=== PATIENT | female | born 2000 | race Caucasian/White ===

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

== ENCOUNTER 2022-01-07 13:56 | Emergency (ER) | payer OTHER ==
[2022-01-07 14:33] LABS: Urine Blood 2+ (Negative); Urine Glucose Negative (Negative); Urine Protein Negative (Negative); Urine Specific Gravity 1.025 (1.005-1.030)
[2022-01-07 14:54] LABS: Absolute Lymphocytes (CBC) 1.9 K/uL (0.7-4.9); Hematocrit 42.1 % (36.0-45.0); Lymphocytes % 19.9 % (15.3-44.8); MCV 86.4 fL (80-100); MPV 8.5 fL (7.6-11.3); RBC Red Blood Cell Count 4.87 M/uL (3.86-4.86)
[2022-01-07 15:04] LABS: Urine Specific Gravity/Preg 1.025 (1.005-1.030)
[2022-01-07 15:05] LABS: Albumin 3.8 g/dL (3.4-5.0); Bilirubin Total 0.2 mg/dL (0.2-1.0); Potassium 3.5 mmol/L (3.5-5.1); Protein, Total 7.1 g/dL (6.4-8.2)
--- NOTE | 2022-01-07 15:37 | ER ---
Nurse's Notes [facility] Name: Vanda Pompa Age: 21 yrs Sex: Female : 2000 Arrival Date: 01/07/2022 Time: 13:57 Bed 15 Private MD: Diagnosis: Vomiting Presentation: 01/07 13:55 Chief complaint: Patient states: she vomited blood at work and is having abdominal jg9 discomfort. Coronavirus screen: Vaccine status:. Ebola Screen: Patient negative for fever greater than or equal to 101.5 degrees Fahrenheit, and additional compatible Ebola Virus Disease symptoms Patient denies exposure to infectious person. Patient denies travel to an Ebola-affected area in the 21 days before illness onset. Initial Sepsis Screen: Does the patient meet any 2 criteria? No. Patient's initial sepsis screen is negative. Does the patient have a suspected source of infection? No. Patient's initial sepsis screen is negative. Risk Assessment: Do you want to hurt yourself or someone else? Patient reports no desire to harm self or others. Onset of symptoms is unknown. 13:55 Method Of Arrival: EMS: [facility] 9 13:55 Acuity: FREDY 3 jg9 Triage Assessment: 13:55 General: Appears in no apparent distress. Behavior is calm, cooperative. Pain: jg9 Complains of pain in abdomen. GI: Abdomen is flat, Pt is actively vomiting Bowel sounds present X 4 quads. Abd is soft and non tender X 4 quads. Reports lower abdominal pain, upper abdominal pain, hemataemesis. 14:27 EENT: No deficits noted. Neuro: No deficits noted. Cardiovascular: No deficits noted. jg9 Respiratory: No deficits noted. : No deficits noted. Derm: No deficits noted. Musculoskeletal: No deficits noted. 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 - Social history:: Smoking status: Patient denies any tobacco usage or history of. Screenin:26 Abuse screen: Denies threats or abuse. Denies injuries from another. Nutritional jg9 screening: No deficits noted. Tuberculosis screening: No symptoms or risk factors identified. Fall Risk None identified. Assessment: 15:00 Reassessment: No changes from previously documented assessment. Patient and/or family jg9 updated on plan of care and expected duration. Pain level reassessed. Patient is alert, oriented x 3, equal unlabored respirations, skin warm/dry/pink. Vital Signs: 13:58 BP 113 / 83; Pulse 112; Resp 16; Temp 97.2; Pulse Ox 100% on R/A; Weight 55.34 kg (R); mb7 Height 5 ft. 3 in. (160.02 cm) (R); 14:00 BP 111 / 69; Pulse 105; Resp 17 S; Pulse Ox 98% on R/A; jg9 14:15 BP 97 / 60; Pulse 109; Resp 12 S; Pulse Ox 100% on R/A; jg9 13:58 Body Mass Index 21.61 (55.34 kg, 160.02 cm) mb7 ED Course: 13:57 Patient arrived in ED. jg9 13:58 Ruchi Mosqueda, RN is Primary Nurse. jg9 13:58 Patient has correct armband on for positive identification. Bed in low position. Call mb7 light in reach. Side rails up X 1. Door closed. Noise minimized. Warm blanket given. 14:00 Arm band placed on. jg9 14:02 Aston López DO is Attending Physician. ms3 14:25 Triage completed. jg9 14:27 Missed attempt(s): 20 gauge in right antecubital area. Bleeding controlled, band aid mb7 applied, catheter tip intact. 15:37 Robert Paredes DO is Referral Physician. ms3 15:43 No provider procedures requiring assistance completed. jg9 15:43 IV discontinued. jg9 Administered Medications: No medications were administered Medication: 15:43 VIS not applicable for this client. jg9 Outcome: 15:37 Discharge ordered by . ms3 15:43 Discharged to home ambulatory. jg9 15:43 Condition: stable 15:43 Discharge instructions given to patient, Instructed on discharge instructions, follow up and referral plans. Demonstrated understanding of instructions, follow-up care. 15:44 Patient left the ED. jg9 Signatures: Aston López DO DO ms3 Purnima Goodson mb7 Ruchi Mosqueda RN RN jg9
--- NOTE | 2022-01-07 15:37 | EDPHYS ---
Physician Documentation [facility] Name: Vanda Pompa Age: 21 yrs Sex: Female : 2000 Arrival Date: 01/07/2022 Time: 13:57 Bed 15 Private MD: ED Physician Aston López HPI: 01/07 14:07 This 21 yrs old Female presents to ER via Unassigned with complaints of Abdominal Pain ms3 - patient reports hemataemesis x3, patient also reports she is having heavy menstrual bleeding since IUD placed 2 months ago. 14:07 The patient presents to the emergency department with nausea, vomiting, 3 times today, ms3 described as blood streaked. Onset: The symptoms/episode began/occurred acutely, just prior to arrival. Possible causes: unknown. The symptoms are aggravated by nothing. The symptoms are alleviated by nothing. Associated signs and symptoms: The patient has no apparent associated signs or symptoms. Severity of symptoms: At their worst the symptoms were moderate in the emergency department the symptoms have improved Pain is currently a / 10. 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 - Social history:: Smoking status: Patient denies any tobacco usage or history of. ROS: 14:07 Constitutional: Negative for fever, and chills. ENT: Negative for injury, pain, and ms3 discharge, Neck: Negative for injury, pain, and swelling, Cardiovascular: Negative for chest pain, and palpitations. Respiratory: Negative for shortness of breath, cough, wheezing, and pleuritic chest pain. 14:07 Skin: Negative for injury, rash, and discoloration, Neuro: Negative for headache, weakness, numbness, tingling. Allergy/Immunology: Negative for hives, rash, and allergies. 14:07 Abdomen/GI: Positive for abdominal pain, nausea and vomiting. Exam: 14:07 Constitutional: This is a well developed, well nourished patient who is awake, alert, ms3 and in no acute distress. Head/Face: Normocephalic, atraumatic. Neck: Trachea midline, no cervical lymphadenopathy. Supple, full range of motion without nuchal rigidity, or vertebral point tenderness. No Meningismus. Chest/axilla: Normal chest wall appearance and motion. Nontender with no deformity. Cardiovascular: Regular rate and rhythm with a normal S1 and S2. No gallops, murmurs, or rubs. Normal PMI, no JVD. No pulse deficits. Respiratory: Lungs have equal breath sounds bilaterally, clear to auscultation and percussion. No rales, rhonchi or wheezes noted. No increased work of breathing, no retractions or nasal flaring. Abdomen/GI: Soft, non-tender, with normal bowel sounds. No distension or tympany. No guarding or rebound. No evidence of tenderness throughout. Skin: Warm, dry with normal turgor. Normal color with no rashes, no lesions, and no evidence of cellulitis. MS/ Extremity: Pulses equal, no cyanosis. Neurovascular intact. Full, normal range of motion. Vital Signs: 13:58 BP 113 / 83; Pulse 112; Resp 16; Temp 97.2; Pulse Ox 100% on R/A; Weight 55.34 kg (R); mb7 Height 5 ft. 3 in. (160.02 cm) (R); 14:00 BP 111 / 69; Pulse 105; Resp 17 S; Pulse Ox 98% on R/A; jg9 14:15 BP 97 / 60; Pulse 109; Resp 12 S; Pulse Ox 100% on R/A; jg9 13:58 Body Mass Index 21.61 (55.34 kg, 160.02 cm) 7 MDM: 14:02 Patient medically screened. ms3 14:07 Differential diagnosis: Nonspecific abd pain, gastritis, viral gastroenteritis, ms3 gastroenteritis. 18:46 Data reviewed: vital signs, nurses notes, lab test result(s), and as a result, I will ms3 discharge patient. Counseling: I had a detailed discussion with the patient and/or guardian regarding: the historical points, exam findings, and any diagnostic results supporting the discharge/admit diagnosis, lab results, the need for outpatient follow up, to return to the emergency department if symptoms worsen or persist or if there are any questions or concerns that arise at home. ED course: Discussed, labs, physical exam findings with patient. Patient to follow-up with primary care physician in 2 to 3 days. Patient understands and agrees with plan. All questions were answered. Return precautions discussed include worsening symptoms, or any other concerns. On reevaluation patient is improved, alert and oriented x4, no apparent distress, nontoxic, ambulatory in emergency department.. 01/07 14:02 Order name: CBC with Diff; Complete Time: 15:06 ms3 01/07 14:02 Order name: CMP; Complete Time: 15:06 ms3 01/07 14:02 Order name: Lipase; Complete Time: 15:06 ms3 01/07 14:02 Order name: IV Saline Lock; Complete Time: 15:45 ms3 01/07 14:33 Order name: Urine Dipstick-Ancillary; Complete Time: 15:06 EDMS 01/07 14:35 Order name: Urine --Ancillary (enter results); Complete Time: 15:06 em1 01/07 14:02 Order name: Labs collected and sent; Complete Time: 15:45 ms3 01/07 14:02 Order name: Urine Test (obtain specimen); Complete Time: 14:32 ms3 Administered Medications: No medications were administered Disposition Summary: 01/07/22 15:37 Discharge Ordered Location: Home ms3 Problem: new ms3 Symptoms: are unchanged ms3 Condition: Stable ms3 Diagnosis - Vomiting ms3 Followup: ms3 - With: Robert Paredes DO - When: 2 - 3 days - Reason: Recheck today's complaints Discharge Instructions: - Discharge Summary Sheet ms3 - Vomiting, Adult ms3 Forms: - Medication Reconciliation Form ms3 - Thank You Letter ms3 - Antibiotic Education ms3 - Prescription Opioid Use ms3 Signatures: Dispatcher [employer] EDMS Aston López DO DO ms3 Ruchi Mosqueda, RN RN jg9
[2022-01-07 15:50] VITALS: TEMP 97.2; O2SAT 100
[2022-01-07 15:52] VITALS: BP 97/60
== END 2022-01-07 15:44 | disposition home or self-care (01) ==
LOC: ER 13:56
DX: R11.10 Vomiting, unspecified (principal); R10.9 Unspecified abdominal pain
CPT/HCPCS: 36415; 80053; 81003; 81025; 83690; 85025

== ENCOUNTER 2022-01-12 12:55 | Emergency (ER) | payer OTHER ==
[2022-01-12 14:15] LABS: Absolute Lymphocytes (CBC) 1.8 K/uL (0.7-4.9); Hematocrit 40.2 % (36.0-45.0); MCV 86.2 fL (80-100); MPV 8.5 fL (7.6-11.3); RBC Red Blood Cell Count 4.66 M/uL (3.86-4.86)
[2022-01-12 14:39] LABS: Magnesium 2.4 mg/dL (1.8-2.4); Potassium 3.9 mmol/L (3.5-5.1)
[2022-01-12 15:36] LABS: Urine Blood 1+ (Negative); Urine Glucose Negative (Negative); Urine Protein Negative (Negative); Urine pH 6.5 (5.0-7.0)
--- NOTE | 2022-01-12 15:47 | EDPHYS ---
Physician Documentation [facility] Name: Vanda Pompa Age: 21 yrs Sex: Female : 2000 Arrival Date: 01/12/2022 Time: 12:57 Bed Treatment Private MD: MEDARDO Physician Dick Fields HPI: 01/12 13:40 This 21 yrs old Female presents to ER via EMS with complaints of Syncope. cp 13:40 The patient has experienced syncope, lost consciousness. Onset: The symptoms/episode cp began/occurred just prior to arrival. Duration: This was a single episode, that lasted an unknown period of time. Context: the episode(s) was witnessed, by co-worker(s), occurred at work, occurred while the patient was standing, Just prior to the episode the patient experienced lightheadedness, felt hot. Associated injury: The patient did not suffer any apparent associated injury. 13:40 Associated signs and symptoms: Pertinent positives: lightheadedness, Pertinent cp negatives: abdominal pain, chest pain, dizziness, headache, numbness, palpitations, seizure, shortness of breath, vomiting, weakness. Current symptoms: Currently, the patient is not experiencing any symptoms, the patient feels back to baseline. Historical: - Allergies: 13:05 No Known Allergies; iw - PMHx: 13:05 Asthma; Bipolar disorder; depressive disorder; iw - PSHx: 13:05 ear surgery; iw ROS: 13:45 Constitutional: Negative for body aches, chills, fever, poor PO intake. cp 13:45 Eyes: Negative for injury, pain, redness, and discharge. cp 13:45 ENT: Negative for drainage from ear(s), ear pain, sore throat, difficulty swallowing, difficulty handling secretions. 13:45 Cardiovascular: Negative for chest pain, edema, palpitations. 13:45 Respiratory: Negative for cough, shortness of breath, wheezing. 13:45 Abdomen/GI: Negative for abdominal pain, nausea, vomiting, and diarrhea. 13:45 Neuro: Positive for syncope, Negative for altered mental status, dizziness, headache, seizure activity, weakness. 13:45 All other systems are negative. Exam: 13:50 Constitutional: The patient appears in no acute distress, alert. cp 13:50 Head/Face: Normocephalic, atraumatic. cp 13:50 Eyes: Periorbital structures: appear normal, Pupils: equal, round, and reactive to cp light and accomodation, Extraocular movements: intact throughout, Conjunctiva: normal, no exudate, no injection, Sclera: no appreciated abnormality, Lids and lashes: appear normal, bilaterally. 13:50 ENT: External ear(s): are unremarkable, Ear canal(s): are normal, TM's: dullness, bilaterally, Nose: is normal, Mouth: Lips: moist, Oral mucosa: pink and intact, moist, Posterior pharynx: Airway: no evidence of obstruction, patent. 13:50 Neck: ROM/movement: is normal, is supple, without pain, no range of motions limitations. 13:50 Chest/axilla: Inspection: normal, Palpation: is normal, no crepitus, no tenderness. 13:50 Cardiovascular: Rate: normal, Rhythm: regular. 13:50 Respiratory: the patient does not display signs of respiratory distress, Respirations: normal, no use of accessory muscles, no retractions, labored breathing, is not present, Breath sounds: are clear throughout, no decreased breath sounds, no stridor, no wheezing. 13:50 Abdomen/GI: Inspection: abdomen appears normal, Bowel sounds: active, all quadrants, Palpation: abdomen is soft and non-tender, in all quadrants. 13:50 Back: pain, is absent, ROM is normal. 13:50 Neuro: Orientation: to person, place \T\ time. Mentation: is normal, Cerebellar function: is grossly normal, Motor: moves all fours, strength is normal, Sensation: is normal. 15:17 ECG was reviewed by the Attending Physician. Vital Signs: 13:36 BP 109 / 71; Pulse 96; Resp 16; Temp 98.4; Pulse Ox 100% on R/A; iw MDM: 13:53 Patient medically screened. uzma 15:45 Data reviewed: vital signs, nurses notes, lab test result(s), EKG. 15:45 Differential Diagnosis: cardiac arrhythmia, drug effect, , pseudo seizure, cp seizure, vasovagal episode. Test interpretation: by ED physician or midlevel provider: ECG. Counseling: I had a detailed discussion with the patient and/or guardian regarding: the historical points, exam findings, and any diagnostic results supporting the discharge/admit diagnosis, lab results, to return to the emergency department if symptoms worsen or persist or if there are any questions or concerns that arise at home. Response to treatment: the patient's symptoms have markedly improved after treatment, and as a result, I will discharge patient. 01/12 13:42 Order name: Basic Metabolic Panel; Complete Time: 14:59 cp 01/12 14:59 Interpretation: Normal except: CL 110. cp 01/12 13:42 Order name: CBC with Diff; Complete Time: 14:59 cp 01/12 13:42 Order name: D-Dimer; Complete Time: 14:59 cp 01/12 13:42 Order name: Magnesium; Complete Time: 14:59 01/12 13:42 Order name: Urine Microscopic Only 01/12 15:36 Order name: Urine Dipstick-Ancillary EDMS 01/12 13:42 Order name: EKG; Complete Time: 13:42 cp 01/12 13:42 Order name: Cardiac monitoring 01/12 13:42 Order name: EKG - Nurse/Tech; Complete Time: 15:08 01/12 13:42 Order name: IV Saline Lock 01/12 13:42 Order name: Labs collected and sent 01/12 13:42 Order name: O2 Per Protocol 01/12 13:42 Order name: O2 Sat Monitoring 01/12 15:38 Order name: Urine --Ancillary (enter results) em 01/12 13:42 Order name: Urine Dipstick-Ancillary (obtain specimen); Complete Time: 15:37 01/12 13:42 Order name: Urine Test (obtain specimen); Complete Time: 15:37 cp EC:17 Rate is 86 beats/min. Rhythm is regular. MS interval is shortened at 98 msec. QRS cp interval is normal. QT interval is normal. T waves are Inverted in lead aVR. Interpreted by me. Reviewed by me. Administered Medications: No medications were administered Disposition Summary: 01/12/22 15:46 Discharge Ordered Location: Home cp Problem: new cp Symptoms: have improved cp Condition: Stable cp Diagnosis - Heat syncope cp Followup: cp - With: Private Physician - When: 1 - 2 days - Reason: Recheck today's complaints Discharge Instructions: - Discharge Summary Sheet cp - Syncope cp - Preventing Heat Exhaustion, Adult cp Forms: - Medication Reconciliation Form cp - Thank You Letter cp - Work release form iw - Antibiotic Education cp - Prescription Opioid Use cp Signatures: Dispatcher [employer] EDDick Bustamante MD MD cha Williams, Irene, RN RN Dick Hannah PA PA cp
--- NOTE | 2022-01-12 15:47 | ER ---
Nurse's Notes [facility] Name: Vanda Pompa Age: 21 yrs Sex: Female : 2000 Arrival Date: 01/12/2022 Time: 12:57 Bed Treatment Private MD: Diagnosis: Heat syncope Presentation: 01/12 13:04 Chief complaint: EMS states: she fainted at work and possibly had a seizure, her iw eyelids were fluttering, pt states she has hx of seizures . Pt states she got overheated at work and had not drank any water, she passed out. Coronavirus screen: At this time, the client does not indicate any symptoms associated with coronavirus-19. Ebola Screen: Patient negative for fever greater than or equal to 101.5 degrees Fahrenheit, and additional compatible Ebola Virus Disease symptoms Patient denies exposure to infectious person. Patient denies travel to an Ebola-affected area in the 21 days before illness onset. No symptoms or risks identified at this time. Initial Sepsis Screen: Does the patient meet any 2 criteria? No. Patient's initial sepsis screen is negative. Does the patient have a suspected source of infection? No. Patient's initial sepsis screen is negative. Risk Assessment: Do you want to hurt yourself or someone else? Patient reports no desire to harm self or others. Onset of symptoms was January 12, 2022. 13:04 Method Of Arrival: EMS: [facility] iw 13:04 Acuity: FREDY 3 iw Triage Assessment: 16:40 General: Appears in no apparent distress. Behavior is calm, cooperative. iw Historical: - Allergies: 13:05 No Known Allergies; iw - PMHx: 13:05 Asthma; Bipolar disorder; depressive disorder; iw - PSHx: 13:05 ear surgery; iw Screenin:40 Abuse screen: Denies threats or abuse. Denies injuries from another. Nutritional iw screening: No deficits noted. Tuberculosis screening: No symptoms or risk factors identified. Fall Risk None identified. Assessment: 13:15 General: Appears in no apparent distress. Behavior is calm, cooperative. Pain:. Neuro: iw Level of Consciousness is awake, alert, obeys commands, Oriented to person, place, time, situation. Cardiovascular: Patient's skin is warm and dry. Respiratory: Respiratory effort is even, unlabored, Respiratory pattern is regular, symmetrical. Derm: Skin is intact, is healthy with good turgor. Musculoskeletal: Range of motion: intact in all extremities. Vital Signs: 13:36 BP 109 / 71; Pulse 96; Resp 16; Temp 98.4; Pulse Ox 100% on R/A; iw ED Course: 12:57 Patient arrived in ED. em1 13:05 Triage completed. iw 13:05 Arm band placed on. iw 13:15 Patient has correct armband on for positive identification. iw 13:36 Dick Nathan PA is PHCP. cp 13:36 Dick Fields MD is Attending Physician. cp 13:49 Staci Damico RN is Primary Nurse. iw 16:40 No provider procedures requiring assistance completed. Patient did not have IV access iw during this emergency room visit. Administered Medications: No medications were administered Medication: 13:15 VIS not applicable for this client. iw Outcome: 15:46 Discharge ordered by MD. cp 16:40 Discharged to home ambulatory. iw 16:40 Condition: good 16:40 Discharge instructions given to patient, Instructed on discharge instructions, follow up and referral plans. Demonstrated understanding of instructions, follow-up care. 16:41 Patient left the ED. iw Signatures: Staci Damico RN RN iw Blayne Diop em1 Dick Nathan PA PA cp Corrections: (The following items were deleted from the chart) 13:37 13:04 Chief complaint: EMS states: she fainted at work and possibly had a seizure, her iw eyelids were fluttering, pt states she has hx of seizures iw
[2022-01-12 15:53] LABS: Urine Bacteria NONE SEEN /HPF (<20); Urine RBC <5 /HPF (NONE SEEN)
[2022-01-12 17:04] VITALS: BP 109/71; TEMP 98.4; O2SAT 100
--- NOTE | 2022-01-13 13:06 | EKG ---
Test Date: 2022-01-12 Test Time: 15:07:50 Overedger: JAKE MEASUREMENT RESULTS: Intervals: Rate: 86 HI: 98 QRSD: 84 QT: 376 QTc: 449 [place]: P: 24 HI: 98 QRS: 140 T: 35 INTERPRETIVE STATEMENTS: Sinus rhythm with short HI Right axis deviation Abnormal ECG Compared to ECG 09/09/2021 20:36:21 Short HI interval now present Electronically Signed On 01-13-22 13:04:34 CDT by Maximo Hunter
== END 2022-01-12 16:41 | disposition home or self-care (01) ==
LOC: ER 12:55
DX: T67.1XXA Heat syncope, initial encounter (principal)
CPT/HCPCS: 36415; 80048; 81003; 81015; 81025; 83735; 85025; 85379; 93005

== ENCOUNTER 2022-01-18 14:38 | Emergency (ER) | payer OTHER ==
[2022-01-18 14:56] LABS: Urine Blood 2+ (Negative); Urine Glucose Negative (Negative); Urine Protein Negative (Negative); Urine Specific Gravity 1.025 (1.005-1.030)
[2022-01-18 15:20] LABS: Absolute Lymphocytes (CBC) 1.9 K/uL (0.7-4.9); Hematocrit 39.9 % (36.0-45.0); Lymphocytes % 24.7 % (15.3-44.8); MCV 86.2 fL (80-100); MPV 8.1 fL (7.6-11.3); RBC Red Blood Cell Count 4.63 M/uL (3.86-4.86)
[2022-01-18 15:25] LABS: Barbiturates NEGATIVE (NEGATIVE); Benzodiazepines NEGATIVE (NEGATIVE); Cocaine NEGATIVE (NEGATIVE); METHAMPHETAM NEGATIVE (NEGATIVE); Methadone NEGATIVE (NEGATIVE); Opiates NEGATIVE (NEGATIVE); Phencyclidine NEGATIVE (NEGATIVE); THC Cannibis NEGATIVE (NEGATIVE)
[2022-01-18 15:30] LABS: Protime INR 1.09
[2022-01-18 15:40] LABS: Albumin 3.6 g/dL (3.4-5.0); BUN Blood Urea Nitrogen 6 mg/dL (7-18); Bicarbonate 26 mmol/L (21-32); Glucose Level 89 mg/dL (74-106); Sodium Level 141 mmol/L (136-145)
[2022-01-18 15:41] LABS: SARS-CoV-2 Antigen Rapid Res Negative (Negative)
[2022-01-18 15:54] LABS: ALT/SGPT 26 U/L (12-78); Alkaline Phosphatase 93 U/L (45-117); Bilirubin Total 0.3 mg/dL (0.2-1.0); Glomerular Filtration Rate 131 ml/min (=/>90); Protein, Total 6.8 g/dL (6.4-8.2)
[2022-01-18 15:56] LABS: AST/SGOT 16 U/L (15-37); Bilirubin Direct < 0.1 mg/dL (0-0.2)
[2022-01-18 16:10] LABS: Urine Specific Gravity/Preg 1.025 (1.005-1.030)
--- NOTE | 2022-01-18 17:11 | EDPHYS ---
Physician Documentation [facility] Name: Vanda Pompa Age: 21 yrs Sex: Female : 2000 Arrival Date: 01/18/2022 Time: 14:39 Bed 19 Private MD: ED Physician Rubén Doss HPI: 01/18 14:47 This 21 yrs old Female presents to ER via EMS with complaints of Possible Overdose. ms3 14:47 The patient presents to the emergency department after a known overdose, a result of ms3 recreational substance abuse. Context: Method: the patient has a confirmed or suspected ingestion, Time: 25 minute(s) ago, Extent: the strength of the pills/capsules is 50 mg(s), the patient had a total ingestion of approximately 450 mg(s), Seroquel, Psychiatric history: the patient has a known psychiatric disorder, bipolar disorder, depression. Associated signs and symptoms: Pertinent negatives: palpitations, shortness of breath, tearfulness, visual hallucinations, vomiting. Severity of symptoms: At their worst the symptoms were mild in the emergency department the symptoms are unchanged Pain is currently a 0 / 10. 21 yo female presents via [facility] after ingestion of 9-50 mg Seroquel tablets 25 minutes prior to arrival. Patient denies pain at this time. Patient denies homicidal, suicidal ideations. Patient denies hallucinations. Patient states she took the medication attempting to make her body numb.. Historical: - Allergies: 14:42 No Known Drug Allergies; bp - PMHx: 14:42 Asthma; Bipolar disorder; depressive disorder; bp - PSHx: 14:42 ear surgery; bp - Immunization history:: Adult Immunizations unknown. - Social history:: Smoking status: unknown. ROS: 14:47 Constitutional: Negative for fever, and chills. Neck: Negative for injury, pain, and ms3 swelling, Cardiovascular: Negative for chest pain, and palpitations. Respiratory: Negative for shortness of breath, cough, wheezing, and pleuritic chest pain, Abdomen/GI: Negative for abdominal pain, nausea, vomiting, diarrhea, and constipation, MS/Extremity: Negative for injury and deformity, Skin: Negative for injury, rash, and discoloration, Neuro: Negative for headache, weakness, numbness, tingling. Psych: Negative for depression, anxiety, suicide ideation, homicidal ideation, and hallucinations. 14:47 All other systems are negative. Exam: 14:42 ECG was reviewed by the Attending Physician. ms3 14:47 Constitutional: This is a well developed, well nourished patient who is awake, alert, ms3 and in no acute distress. Head/Face: Normocephalic, atraumatic. Neck: Trachea midline, no cervical lymphadenopathy. Supple, full range of motion without nuchal rigidity, or vertebral point tenderness. No Meningismus. Chest/axilla: Normal chest wall appearance and motion. Nontender with no deformity. Respiratory: Lungs have equal breath sounds bilaterally, clear to auscultation and percussion. No rales, rhonchi or wheezes noted. No increased work of breathing, no retractions or nasal flaring. Abdomen/GI: Soft, non-tender, with normal bowel sounds. No distension or tympany. No guarding or rebound. No evidence of tenderness throughout. Skin: Warm, dry with normal turgor. Normal color with no rashes, no lesions, and no evidence of cellulitis. MS/ Extremity: Pulses equal, no cyanosis. Neurovascular intact. Full, normal range of motion. Psych: Awake, alert, with orientation to person, place and time. Behavior, mood, and affect are within normal limits. 14:47 Cardiovascular: Rate: tachycardic, Rhythm: regular, Pulses: no pulse deficits are appreciated, Heart sounds: normal. Vital Signs: 14:40 BP 96 / 60; Pulse 130; Resp 20; Temp 98; Pulse Ox 100% ; Weight 54.88 kg; Height 5 ft. bp 3 in. (160.02 cm); 15:33 BP 107 / 77; Pulse 106; Resp 19; Pulse Ox 97% on R/A; moss 01/19 00:29 BP 106 / 71; Pulse 84; Resp 17; Pulse Ox 96% on R/A; sm5 01/18 14:40 Body Mass Index 21.43 (54.88 kg, 160.02 cm) bp MDM: 01/18 14:44 Patient medically screened. ms3 14:47 Differential diagnosis: Ingestion/exposure to seroquel polypharmacy, over medication. ms3 Data reviewed:. 19:16 ED course: Discussed case with Dr Luis, psychiatrist patient has seen, and he will ms3 call [facility] to ensure patient can follow up and will call back.. 19:20 Transition of care: After a detail discussion of the patient's case, care is ms3 transferred to Rubén Doss MD. 21:50 Counseling: I had a detailed discussion with the patient and/or guardian regarding: the rn historical points, exam findings, and any diagnostic results supporting the discharge/admit diagnosis, lab results, the need for outpatient follow up, to return to the emergency department if symptoms worsen or persist or if there are any questions or concerns that arise at home. Response to treatment: and as a result, I will admit patient. 01/18 14:46 Order name: Acetaminophen; Complete Time: 16:21 ms3 01/18 14:46 Order name: BMP; Complete Time: 16:21 01/18 14:46 Order name: CBC with Diff; Complete Time: 16:21 01/18 14:46 Order name: Ethanol; Complete Time: 16:21 01/18 14:46 Order name: Hepatic Function; Complete Time: 16:21 01/18 14:46 Order name: Protime (+inr); Complete Time: 16:21 01/18 14:46 Order name: Ptt, Activated; Complete Time: 16:21 01/18 14:46 Order name: Salicylate; Complete Time: 16:21 01/18 14:46 Order name: Urine Drug Screen; Complete Time: 16:21 01/18 14:46 Order name: EKG; Complete Time: 14:47 01/18 14:46 Order name: EKG - Nurse/Tech; Complete Time: 15:12 01/18 14:46 Order name: SARS-COV-2 Antigen Rapid; Complete Time: 16:21 01/18 14:57 Order name: Urine Dipstick-Ancillary; Complete Time: 16:21 EDMS 01/18 15:05 Order name: Urine --Ancillary (enter results); Complete Time: 16:21 em1 01/18 14:46 Order name: IV Saline Lock; Complete Time: 15:12 ms01/18 14:46 Order name: Labs collected and sent; Complete Time: 15:12 ms01/18 14:46 Order name: O2 Per Protocol; Complete Time: 15:12 01/18 14:46 Order name: O2 Sat Monitoring; Complete Time: 15:12 ms3 01/18 14:46 Order name: Suicide Precautions; Complete Time: 15:12 ms3 01/18 14:46 Order name: Suicide Screening ([place]); Complete Time: 15:12 ms3 01/18 14:46 Order name: Urine Dipstick-Ancillary (obtain specimen); Complete Time: 14:56 ms3 01/18 14:46 Order name: Urine Test (obtain specimen); Complete Time: 14:56 ms3 EC:42 Rate is 123 beats/min. Rhythm is regular. QRS [place] is Normal. [place] interval is normal. No ms3 ST changes noted. Clinical impression: Sinus tachycardia. Interpreted by me. Reviewed by me. Administered Medications: No medications were administered Disposition Summary: 01/18/22 17:10 Transfer Ordered Transfer Location: [facility] Facility ms3 Reason: Higher level of care ms3 Condition: Stable ms3 Problem: new ms3 Symptoms: are unchanged ms3 Accepting Physician: (01/19/22 03:24) franky Diagnosis - Overdose ms3 - Suicidal ideations rn Forms: - Medication Reconciliation Form ms3 - SBAR form ms3 Signatures: Dispatcher [employer] EDRubén Viera MD MD rn Peltier, Brian RN Aston Vang DO DO ms3 Iliana Ortega, RN RN sm5 Corrections: (The following items were deleted from the chart) 21:51 17:10 . ms3 rn 01/19 03:24 01/18 21:51 Dr. smith sm5
--- NOTE | 2022-01-18 17:11 | ER ---
Nurse's Notes [facility] Name: Vanda Pompa Age: 21 yrs Sex: Female : 2000 Arrival Date: 01/18/2022 Time: 14:39 Bed 19 Private MD: Diagnosis: Overdose;Suicidal ideations Presentation: 01/18 14:40 Chief complaint: EMS states: OVERDOSE OF 9 50MG SEROQUEL REPORTEDLY. Coronavirus bp screen: At this time, the client does not indicate any symptoms associated with coronavirus-19. Ebola Screen: No symptoms or risks identified at this time. Initial Sepsis Screen: Does the patient meet any 2 criteria? No. Patient's initial sepsis screen is negative. Initial Sepsis Screen: Does the patient have a suspected source of infection? No. Patient's initial sepsis screen is negative. Risk Assessment: Do you want to hurt yourself or someone else? Patient reports no desire to harm self or others. Onset of symptoms was January 18, 2022 at 14:00. 14:40 Method Of Arrival: EMS: [facility] bp 14:40 Acuity: FREDY 2 bp Triage Assessment: 14:42 General: Appears in no apparent distress. comfortable, Behavior is calm. Pain: Denies bp pain. EENT: No deficits noted. Neuro: Level of Consciousness is awake, alert, obeys commands, Oriented to Appropriate for age. Cardiovascular: Rhythm is sinus tachycardia. Respiratory: No deficits noted. GI: No signs and/or symptoms were reported involving the gastrointestinal system. : No signs and/or symptoms were reported regarding the genitourinary system. Derm: No deficits noted. Musculoskeletal: No deficits noted. Historical: - Allergies: 14:42 No Known Drug Allergies; bp - PMHx: 14:42 Asthma; Bipolar disorder; depressive disorder; bp - PSHx: 14:42 ear surgery; bp - Immunization history:: Adult Immunizations unknown. - Social history:: Smoking status: unknown. Screenin:43 Abuse screen: Denies threats or abuse. Denies injuries from another. Nutritional bp screening: No deficits noted. Tuberculosis screening: No symptoms or risk factors identified. Fall Risk None identified. Assessment: 14:43 General: SEE TRIAGE NOTE. bp 15:34 Neuro: Level of Consciousness is awake, alert, obeys commands, Oriented to person, moss place, time, situation, Reports numbness in generlized. 15:58 Reassessment: poison control was called case # [id number]. moss 17:34 Reassessment: Pt's Mother at bedside, reports pt is agitated from having to spend time jl7 in residential over the weekend. She just had a psych appointment with Dr. Izaguirre at [facility], [phone]. Pt's mother is requesting to take pt home with Psych physician's approval. ERD aware and will attempt to notify Dr. Izaguirre. 19:37 General: Spoke to Marc at [place] [facility] [phone]. She stated they are going to hold a 5 bed for Pompa they just need the e-americo from [facility]. 22:00 Reassessment: pt moved to ER bed 19. all hazardous items removed from room, sitter at [facility] bedside. seizure pads on bed. 01/19 00:31 Reassessment: nurse to nurse report given to [facility]. [facility] 02:00 Reassessment: pt sleeping in bed with unlabored respirations. [facility] Overdose: 01/18 15:12 [place] Suicide Severity Screening: "In the past month, have you wished you were moss or wished you could go to sleep and not wake up?" Patient responds "no." Patient responds "yes." Based off client's responses, additional C-SSRS screening questions required. "In the past month, have you actually had any thoughts of killing yourself?" Patient responds "no." "In your lifetime, have you ever done anything, started to do anything, or prepared to do anything to end your life?" Patient responds "yes." Patient reports suicidal intent within 3 past months. 15:12 [place] Suicide Severity Screening: "In the past month, have you actually had any moss thoughts of killing yourself?" Patient responds "yes." Based off client's responses, additional C-SSRS screening questions required. Patient took Seroquel 9 tablets. Overdose occurred 30 minutes to 1 hour ago. Vital Signs: 14:40 BP 96 / 60; Pulse 130; Resp 20; Temp 98; Pulse Ox 100% ; Weight 54.88 kg; Height 5 ft. bp 3 in. (160.02 cm); 15:33 BP 107 / 77; Pulse 106; Resp 19; Pulse Ox 97% on R/A; moss 01/19 00:29 BP 106 / 71; Pulse 84; Resp 17; Pulse Ox 96% on R/A; sm5 01/18 14:40 Body Mass Index 21.43 (54.88 kg, 160.02 cm) bp ED Course: 01/18 14:39 Patient arrived in ED. bp 14:41 Triage completed. bp 14:42 Arm band placed on. bp 14:43 Patient has correct armband on for positive identification. Placed in gown. Bed in low bp position. Side rails up X2. 14:44 Aston López DO is Attending Physician. ms3 15:11 Ashlyn Meyer, OLGA is Primary Nurse. moss 15:11 Urine --Ancillary (enter results) Sent. moss 15:13 No provider procedures requiring assistance completed. Inserted saline lock: 20 gauge moss in right hand, using aseptic technique. 19:22 Attending Physician role handed off by Aston López DO ms3 19:22 Rubén Doss MD is Attending Physician. ms3 19:42 called [facility] spoke to Teresa to have a screener evaluate the patient. mw2 20:32 Sera from [facility] is on the phone with the patient. mw2 21:39 faxed patient clinical's to [facility]. mw2 21:[address] Doss with Dr Monterroso from [facility]. mw2 21:58 faxed patient clinicals to [facility]. mw2 01/19 00:03 refaxed patient clinials to [facility]. mw2 00:26 nurse to nurse with Duke from [facility]. mw2 00:52 administrative approval given by Jenny Che/ patient has been accepted to [address]/ Dr. Newby accepted the patient in transfer. [facility] needs the Transfer Warrant faxed over before transferring. 02:21 Contacted [facility] SO spoke to [place] to have the [facility] [place] transport mw2 the patient. 02:32 [facility] [place] Markus called he is on a call but will arrive here when done. mw2 03:20 IV discontinued, intact, bleeding controlled, No redness/swelling at site. Pressure sm5 dressing applied. Administered Medications: No medications were administered Medication: 01/18 14:43 VIS not applicable for this client. bp Outcome: 17:10 ER care complete, transfer ordered by ms3 01/19 03:21 Transferred mental health deput. to other acute care facility: [place] [address] facility. Transfer form completed. Condition: stable Instructed on the need for transfer. 03:24 Patient left the ED. [facility] Signatures: Denzel Hu RN RN 7 Isreal Blakely RN RN bp Jay Mcdaniel mw2 Aston López, DO ms3 [place] 5 Iliana Ortega RN OLGA 5 Au-StagerAshlyn RN OLGA moss Corrections: (The following items were deleted from the chart) 01/18 19:39 19:37 General: Spoke to Marc at [place] [facility]. She stated they are going to hold a bed for [address] they just need the e-americo from [facility] 20:54 20:32 [facility] speaking to patient mw2 mw2 21:11 20:32 Sera from [facility] speaking to the patient mw2 mw2
[2022-01-19 07:02] VITALS: TEMP 98
[2022-01-19 07:05] VITALS: BP 106/71; O2SAT 96
--- NOTE | 2022-01-19 07:23 | EKG ---
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
--- OUTSIDE RECORDS SUMMARY | 2022-01-20 14:24 | XMS REPORT | Continuity of Care Document ---
:2000 Author Organization [facility] [place] t Address [address] [place] [address] Care Team Providers Name Role Phone Simon ROBERTS, Mustapha Primary Care Physician James ROBERTS Attending Clinician Todd ROBERTS, L Attending Clinician Tremaine LINDER, J Attending Clinician Bpiin ROBERTS Attending Clinician Maria Antonia LINDER Attending Clinician Jameson ROBERTS, Cam Attending Clinician Jorge ROBERTS Attending Clinician Pcp-Lab Attending Clinician Unavailable DR BRINDA Attending Clinician Unavailable DR BRINDA Admitting Clinician Unavailable Payers Payer Name Policy Type Policy Number Effective Date Expiration Date Chidi nice [facility] MEDICAID STAR [id number] 2021 00:00:00 Problems Condition Condition Condition Status Onset Resolution Last Treating Co mments Source Name Details Category Date Date Treatment Clinician Date Menorrhagi Menorrhagi Disease Active U nivers a with a with 4-29 ity of regular regular 00:00: [place] cycle cycle 00 Medical Branch 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 [place] depressive [place] disorder disorder 00 [place] Abnormal Abnormal Disease Active 2019-07 Unive rs uterine uterine 0-20 ity of bleeding bleeding 00:00: [place] (AUB) (AUB) 00 Medical Branch SANDRA SANDRA [...] different from the original. 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 Allergies, Adverse Reactions, Alerts Allergy Allergy Status Severity Reaction(s) Onset Inactive Treating Comm ents Source Name Type Date Date Clinician No Known DA Active [facility] 07-09 Allergie 00:00: s 00 No Known DA Active U 2020-07 [facility] 07-25 Allergie 00:00: s 00 Unable DA Active U 2020-07 [facility] 07-25 Assess 00:00: 00 No Known DA Active [facility] s Family History Family Member Diagnosis Comments Start Date Stop Date Source Natural brother Psychiatry [facility] Natural father Alcohol abuse Univers y [facility] Natural father Substance abuse Unive rsity of [facility] Natural mother Psychiatry [facility] Social History Social Habit Start Date Stop Date Quantity Comments Source [facility] Comment [place] [facility] Alcohol intake 2022-01-18 2022-01-18 Lifetime University of 00:00:00 00:00:00 non-drinker [facility] (finding) Branch Exposure to 2022-01-07 2022-01-17 Not sure [facility] SARS-CoV-2 00:00:00 10:03:00 [facility] (event) Branch Tobacco use and 2022-01-17 2022-01-17 Smokeless tobacco Un iversity of exposure 00:00:00 00:00:00 non-user [place] [facility] History SDOH 2020-04-20 2020-04-20 1 University o f Alcohol Frequency 00:00:00 00:00:00 [place] M edical Branch History SDOH 2020-04-20 2020-04-20 99 [place] o f Alcohol Std 00:00:00 00:00:00 [place] Medical Drinks Branch History [facility] 2020-04-20 2020-04-20 1 [place] o f Alcohol Binge 00:00:00 00:00:00 [place] Medic al Branch Sex Assigned At [birth year] Universit y of 00:00:00 00:00:00 [facility] Smoking Status Start Date Stop Date Source Never smoked tobacco [facility] Medications Ordered Filled Start Stop Current Ordering Indication Dosage Frequency Signature Comments Components Source Medication Medication Date Date Medication? Clinician (SIG) Name Name QUEtiapine 2021- Yes [id number] 50mg Take 1 Un kayleen 50 mg 01-17 tablet by ity of tablet 00:00: 04:59 mouth in [place] 00 :00 the Medical morning Branch and 1 tablet in the evening. Do all this for 60 days. lithium 2021- Yes [id number] 300mg Take 1 U nivers carbonate 12-07 tablet by ity of CR 300 mg 00:00: 04:59 mouth at [facility] as SR tablet 00 :00 bedtime Medical for 90 Branch days. lithium 2021- Yes [id number] 450mg Take 1 U nivers carbonate 12-07 tablet by ity of CR 450 mg 00:00: 04:59 mouth [place] SR tablet 00 :00 every Medical morning Branch for 90 days. traZODone 2021- Yes [id number] 50mg Take 1 Univers 50 mg 11-08 tablet by ity of tablet 00:00: 04:59 mouth at [place] 00 :00 bedtime Medical for 90 Branch days. atomoxetine 2021- Yes [id number] 40mg Take 1 Univers 40 mg 11-08 capsule by ity of capsule 00:00: 04:59 mouth [place] 00 :00 daily for Medical 90 days. Branch ARIPiprazol 2021- No [id number] 20mg Take 1 Univers e 20 mg 11-08 tablet by ity of tablet 00:00: 00:00 mouth [place] 00 :00 daily. Medical Branch miSOPROStoL Yes [id number] 200ug Take 1 Univers 200 mcg 4-29 tablet by ity of tablet 00:00: mouth [place] [id number] SEE-INSTRU Medical CTIONS. Branch Take one tab the night before and one tab the morning of procedure Immunizations Ordered Immunization Filled Immunization Date Status Commen ts Source Name Name SARS-COV-2 COVID-19 2021-06-24 Completed Unive rsity of PFIZER VACCINE 00:00:00 [facility] SARS-COV-2 COVID-19 2020-11-21 Completed Unive rsity of PFIZER VACCINE 00:00:00 [facility] SARS-COV-2 COVID-19 2020-10-24 Completed Unive rsity of PFIZER VACCINE 00:00:00 [facility] Influenza Virus 2020-07-08 Completed Universit y of Vaccine Quad .5 mL IM 00:00:00 [place] [facility] Medical 6+ MO Branch Meningococcal B, OMV 2018-10-31 Completed Univ ersity of 00:00:00 [facility] Influenza Virus 2018-08-29 Completed Universit y of Vaccine Quad .5 mL IM 00:00:00 [place] [facility] Medical 6+ MO Branch Meningococcal B, OMV 2018-08-29 Completed Univ ersity of 00:00:00 [facility] Meningococcal 2018-01-17 Completed University of Polysaccharide 00:00:00 [facility] (groups A, C, Y and Branc h W-135) conjugate vaccine (MCV4P) Influenza Virus 2017-04-12 Completed Universit y of Vaccine Quad IM 3+ 00:00:00 [facility] HPV9 2017-02-01 Completed University of 00:00:00 [facility] HPV 2016-01-20 Completed University of 00:00:00 [facility] Influenza Virus 2015-07-08 Completed Universit y of Vaccine Quad IM 3+ 00:00:00 [facility] HPV9 2015-07-08 Completed University of 00:00:00 [facility] Influenza Virus 2014-04-02 Completed Universit y of Vaccine (3+ yrs) 00:00:00 [facility] Influenza Virus 2013-05-22 Completed Universit y of Vaccine (3+ yrs) 00:00:00 [facility] Meningococcal 2013-05-22 Completed University of Polysaccharide 00:00:00 [facility] (groups A, C, Y and Branc h W-135) conjugate vaccine (MCV4P) TDAP 2013-05-22 Completed University of 00:00:00 [facility] Influenza Virus 2012-06-13 Completed Universit y of Vaccine 00:00:00 [facility] Influenza Virus 2011-05-18 Completed Universit y of Vaccine 00:00:00 [facility] Influenza Virus 2010-05-26 Completed Universit y of Vaccine 00:00:00 [facility] Influenza Virus 2009-06-23 Completed Universit y of Vaccine 00:00:00 [facility] Influenza Virus 2009-05-20 Completed Universit y of Vaccine 00:00:00 [facility] Influenza Virus 2007-06-01 Completed Universit y of Vaccine 00:00:00 [facility] DTAP 2006-05-24 Completed University of 00:00:00 [facility] Proquad 2006-05-24 Completed University of (MMR/VARICELLA) 00:00:00 [facility] ica Branch Polio (IPV/OPV) 2006-05-24 Completed Universit y of 00:00:00 [facility] HEPATITIS A 2005-05-19 Completed University of 00:00:00 [facility] Influenza Virus 2005-05-19 Completed Universit y of Vaccine 00:00:00 [facility] HEPATITIS A 2004-05-17 Completed University of 00:00:00 [facility] Polio (IPV/OPV) 2003-08-21 Completed Universit y of 00:00:00 [facility] HIB 4 Dose Schedule 2003-05-22 Completed Unive rsity of 00:00:00 [facility] MMR 2003-05-22 Completed University of 00:00:00 [facility] Pneumococcal 7 2003-05-22 Completed University of Conjugate, PCV7 00:00:00 [facility] ica (Prevnar7) Branch Varicella 2003-05-22 Completed University of (varivax)(chicken 00:00:00 [place] M edical pox) Branch DTAP 2003-01-01 Completed University of 00:00:00 [facility] HIB 4 Dose Schedule 2003-01-01 Completed Unive rsity of 00:00:00 [facility] Hep B, Adol or Pedi 2003-01-01 Completed Unive rsity of Dosage 00:00:00 [facility] Pneumococcal 7 2003-01-01 Completed University of Conjugate, PCV7 00:00:00 [facility] (Prevnar7) Branch DTAP 2002 Completed University of 00:00:00 [facility] HIB 4 Dose Schedule 2002 Completed Unive rsity of 00:00:00 [facility] Pneumococcal 7 2002 Completed University of Conjugate, PCV7 00:00:00 [place] Med ical (Prevnar7) Branch Polio (IPV/OPV) 2002 Completed Universit y of 00:00:00 [facility] DTAP 2002 Completed University of 00:00:00 [facility] HIB 4 Dose Schedule 2002 Completed Unive rsity of 00:00:00 [facility] Hep B, Adol or Pedi 2002 Completed Unive rsity of Dosage 00:00:00 [facility] Polio (IPV/OPV) 2002 Completed Universit y of 00:00:00 [facility] Hep B, Adol or Pedi 2002 Completed Unive rsity of Dosage 00:00:00 [facility] Vital Signs Vital Name Observation Time Observation Value Comments Source Height 2020-09-25 23:56:00 165.1 CM Weight 2020-09-25 23:56:00 2.69 KG Systolic blood 2022-01-17 15:11:00 109 mm[Hg] Univer sity of pressure [facility] Diastolic blood 2022-01-17 15:11:00 73 mm[Hg] Unive rsity of pressure [facility] Heart rate 2022-01-17 15:11:00 108 /min [facility] Respiratory rate 2022-01-17 15:11:00 18 /[facility] Body height 2022-01-17 15:11:00 160 cm [facility] Body weight 2022-01-17 15:11:00 54.432 kg [facility] BMI 2022-01-17 15:11:00 21.26 kg/m2 [facility] Body temperature 2021-12-31 22:01:00 36.72 [facility] Oxygen saturation in 2021-12-06 16:56:00 97 /min [facility] Arterial blood by [facility] Pulse oximetry Branch Head 2009-07-13 18:51:00 51 cm Universi ty of Occipital-frontal [place] Medi torito circumference by [employer] Branch measure Procedures Procedure Date / Time Performing Clinician Source Performed GALV ONLY - VAGINAL 2021-12-06 17:16:00 Akiko Voss [facility] PATHOGENS BY NUCLEIC [facility] ER ACID TESTING POCT URINALYSIS 2021-12-06 17:10:00 [facility] URINE CULTURE 2021-12-06 17:10:00 [facility] GC & CHLAMYDIA 2021-12-06 17:10:00 Bipin [facility] AMPLIFIED [facility] TRICHOMONAS AMPLIFIED 2021-11-26 20:20:00 James [facility] ASSAY [facility] GC & CHLAMYDIA 2021-11-26 20:20:00 [facility] DISCLOSURE AND CONSENT, 2021-11-26 05:01:00 Doctor Unassigned, N o [facility] MEDICAL AND SURGICAL Name Medical [facility] PROCEDURES POCT TEST 2021-11-26 00:00:00 James Ame [facility] XR FOOT 3+ VW RIGHT 2021-11-19 23:06:00 [facility] LITHIUM 2021-10-27 19:19:00 Susan Izaguirre [facility] THYROID STIMULATING 2021-10-27 19:19:00 Nan Barba [facility] HORMONE [facility] PROLACTIN 2021-10-27 19:19:00 Nan Barba [facility] Encounters Start End Encounter Admission Attending Care Care Encounter Source Date/Time Date/Time Type Type Clinicians Facility Department ID 2021-11-[address] [facility] [id number] [place] 11:00:33 [id number] Health 2021-07-09 Inpatient [facility] [id number] [facility] 12:46:00 14 2021-05-25 Inpatient [facility] [id number] [facility] 23:19:00 94 2022-01-17 2022-01-17 Travel 1.2.840.1 1.2.158.000 [id number] Univers 00:00:00 00:00:00 04002.1.1 350.1.13.10 ity of 3.104.2.7 4.[place].7.3.698 [place] .3.295926 084.8 Medica l .8 [place] 2021-12-31 2021-12-31 Office Fish, Ame 1.2.840.1 [id number] [facility] 16:00:00 17:22:54 Visit Maggie Brooks 09223.1.1 ity of 3.104.2.7 [place] .3.910695 Medica l .8 [place] 2021-12-31 2021-12-31 Travel 1.2.840.1 1.2.469.838 [id number] [facility] 00:00:00 00:00:00 74351.1.1 350.1.13.10 ity of 3.104.2.7 4.2.7.3.698 [place] .3.855112 084.8 Medica l .8 [place] 2021-12-20 2021-12-20 Travel 1.2.840.1 1.2.530.809 [id number] [facility] 00:00:00 00:00:00 41243.1.1 350.1.13.10 ity of 3.104.2.7 4.2.7.3.698 [place] .3.809310 084.8 Medica l .8 [place] 2021-12-06 2021-12-06 Shivani Patel 1.2.840.1 [id number] [facility] 12:00:00 12:16:45 Akiko Gonzalez 31183.1.1 ity of 3.104.2.7 [place] .3.345166 Medica l .8 [place] 2021-12-06 2021-12-06 Travel 1.2.840.1 1.2.380.270 [id number] Univers 00:00:00 00:00:00 54251.1.1 350.1.13.10 ity of 3.104.2.7 4.2.7.3.698 [place] .3.101001 084.8 Medica l .8 [place] 2021-11-26 2021-11-26 Office Fish, Ame 1.2.840.5 [id number] Univers 15:00:00 15:40:48 Visit 31345.1.1 ity of 3.104.2.7 [place] .3.187308 Medica l .8 [place] 2021-11-26 2021-11-26 Travel 1.2.840.1 1.2.076.827 [id number] Univers 00:00:00 00:00:00 18293.1.1 350.1.13.10 ity of 3.104.2.7 4.2.7.3.698 [place] .3.632615 084.8 Medica l .8 [place] 2021-11-19 2021-11-19 [facility], 1.2.840.0 [id number] [facility] 17:58:13 23:59:00 Encounter Vania 69942.1.1 it y of 3.104.2.7 [place] .3.894697 Medica l .8 [place] 2021-11-19 2021-11-19 [facility] 1.2.840.7 [id number] [facility] 17:20:00 18:04:46 Care Rania 78282.1.1 ity of 3.104.2.7 [place] .3.272749 Medica l .8 [place] 2021-11-19 2021-11-19 Travel 1.2.840.1 1.2.222.478 [id number] Univers 00:00:00 00:00:00 06586.1.1 350.1.13.10 ity of 3.104.2.7 4.2.7.3.698 [place] .3.236994 084.8 Medica l .8 [place] 2021-11-16 2021-11-16 Telephone Nan Barba 1.2.840.2 [id number] Univers 00:00:00 00:00:00 Cam 86422.1.1 ity of 3.104.2.7 [place] .3.381045 Medica l .8 [place] 2021-11-08 2021-11-08 Travel 1.2.840.1 1.2.239.384 [id number] Univers 00:00:00 00:00:00 49531.1.1 350.1.13.10 ity of 3.104.2.7 4.2.7.3.698 [place] .3.846679 084.8 Medica l .8 [place] 2021-10-29 2021-10-29 Office Nan Barba 1.2.840.4 [id number] [facility] 13:00:00 13:28:21 Visit Cam 28287.1.1 ity of 3.104.2.7 [place] .3.171893 Medica l .8 [place] 2021-10-29 2021-10-29 Travel 1.2.840.1 1.2.376.647 [id number] [facility] 00:00:00 00:00:00 17005.1.1 350.1.13.10 ity of 3.104.2.7 4.2.7.3.698 [place] .3.144830 084.8 Medica l .8 [place] 2021-10-27 2021-10-27 Wash Worker Pat Patel 1.2.840.1 [id number] [facility] 12:30:00 12:45:00 Visit Pcp-Lab 56885.1.1 ity of 3.104.2.7 [place] .3.601614 Medica l .8 [place] 2021-10-27 2021-10-27 Travel 1.2.840.1 1.2.353.573 [id number] Univers 00:00:00 00:00:00 46561.1.1 350.1.13.10 ity of 3.104.2.7 4.2.7.3.698 [place] .3.784548 084.8 Medica l .8 [place] 2020-09-25 2020-09-26 Emergency E JOAN PARRY [facility] [id number] [address] [place] [address] 23:49:00 10:04:00 [facility] Results Test Description Test Time Test Comments Results Result Comments Source POCT URINALYSIS W SPECIFIC GRAVITY 2021-12-06 17:14:00 Test Item Value Reference Range Interpretation Comme nts POCT U SP GRAV (test code = 3255) 1.015 mg/dl 1.005-1.025 POCT PH U (test code = 3254) 5 mg/dl 5-8 POCT U LEUK EST (test code = 3263) 2+ Negative - Negative POCT U NIT (test code = 3262) Negative Negative - Negative POCT U PROT (test code = 3259) Negative Negative - Negative POCT U GLU (test code = 3256) Negative Negative - Negative POCT U KETONE (test code = 3258) Negative Negative - Negative POCT U UROBILI (test code = 3260) Normal 0.2-1 POCT U BILI (test code = 3261) Negative Negative - Negative POCT U BLD (test code = 3257) Trace Negative - Negative POCT U COLOR (test code = 3266) Yellow POCT U APPEAR (test code = 3267) Clear Lab Interpretation (test code = 43791-4) [facility]normal [facility] [id number] 20:03:00 Test Item Value Reference Range Interpretation Comments POCT PREG (test code = 1605) Negative On board controls acceptable with C Yes Line (test code = 3574) POCT PREG LOT # (test code = 3575) POCT PREG TEST DATE (test code = 3576) [facility] 22:12:17 Test Item Value Reference Range Interpretation Comments PROLACTIN (test code = 8190907305) 7.5 ng/mL 3.3-26.7 Lab Interpretation (test code = Normal 55321-5) [facility] [id number] 19:43:55 Test Item Value Reference Range Interpretation Comments TSH (test code = See_Comment Biotin has been [id number]) reported to cau se a negative bias, interpret resul ts relative to pat ient's use of biotin. [Automated mess age] The system [employer] generated this result transmitted ref erence range: 0.45 - 4 .70 mIU/L. The refe rence range was not u sed to interpret this result as normal/abnor mal. Lab Interpretation (test Normal code = 18732-6) [facility]2022-[facility] 00:07:55 Test Item Value Reference Range Interpretation Comments [place] (test code = 0.6 mmol/L 0.6-1.2 [id number]) MEDHAT (test code = MEDHAT) Toxic Range: ? Greater than 1.2 mmol/L Lab Interpretation (test Normal code = 38416-2) [facility] (TEGRETOL)2020-09-26 08:42:00 Test Item Value Reference Range Interpretation Comments CARBAMAZPN (test code = 98A) 19.3 ug/mL 4.0-12.0 HH CARBAMAZEPHINE (TEGRETOL)2020-09-26 05:04:00 Test Item Value Reference Range Interpretation Comments CARBAMAZPN (test code = 98A) 20.1 ug/mL 4.0-12.0 HH URINALYSIS WITH [id number] 02:45:00 Test Item Value Reference Range Interpretation [...] code = USPERM) /HPF NONE DRUGS OF [id number] 02:43:00 Test Item Value Reference Range Interpretation [...] the FDA and the [employer] the [place] [employer] (CAP) are more stringent than those required for this test. Therefore, the result should be interpreted with caution and close attention to other clinical and epidemiological data PRO TIME AND [id number] 00:51:00 Test Item Value Reference Range Interpretation [...] Heparin. Order Code is ANTI-XA COMPREHENSIVE METABOLIC [id number] 00:47:00 Test Item Value Reference Range Interpretation [...] as normal/abnormal . GFR 154 See_Comment [Automated MONGOLIAN (test mL/min/1.73m\S\2 message] The code = GFRAA) [...] to interpret this result as normal/abnormal . [id number] 00:47:00 Test Item Value Reference Range Interpretation Comments ACETAMINPH (test code = 94M) 3.6 ug/mL 10.0-30.0 L CARDIAC [id number] 00:47:00 Test Item Value Reference Range Interpretation [...] interpret th is result as normal/abnormal . [id number] 00:42:00 Test Item Value Reference Range Interpretation Comments SALICYLATE (test code = 94B) <1.7 mg/dL 2.8-20.0 L SERUM [id number] 00:38:00 Test Item Value Reference Range Interpretation [...]
== END 2022-01-19 03:24 ==
LOC: ER 14:38
DX: T43.591A Poisoning by other antipsychotics and neuroleptics, accidental (unintentional), initial encounter (principal); R45.851 Suicidal ideations; F31.9 Bipolar disorder, unspecified
CPT/HCPCS: 36415; 80048; 80076; 80307; 80320; 80329; 81003; 81025; 85025; 85610; 85730; 87811; 93005

== ENCOUNTER 2022-02-19 22:13 | Emergency (ER) | payer OTHER ==
--- OUTSIDE RECORDS SUMMARY | 2022-02-19 22:17 | XMS REPORT | Continuity of Care Document ---
:2000 Author Organization [facility] t Address [address] [place] [address] [address] [place] [address] Care Team Providers Name Role Phone NILTON DANIELS Mustapha Primary Care Physician Unavailable BOUCHRA MCINTOSH Attending Clinician Unavailable MIKE JACOBS Attending Clinician Unavailable Kitty Crews Attending Clinician Ame Ramirez MD Attending Clinician Maggie Brooks MD Attending Clinician Shivani Castaneda Attending Clinician Akiko Voss MD Attending Clinician Vania Rivera Attending Clinician Nan Barba MD Attending Clinician Pat Patel MD Attending Clinician Pcp-Lab Attending Clinician Unavailable DR ALAINA PARRY Attending Clinician Unavailable DR ALAINA PARRY Admitting Clinician Unavailable Payers Payer Name Policy Type Policy Number Effective Date Expiration Date [facility] MEDICAID ESTELL MANOR [id number] 2021 00:00:00 [facility] [id number] 2016 CHOICE MEDICAID 00:00:00 Problems Condition Condition Condition Status Onset Resolution Last Treating Co mments Source Name Details Category Date Date Treatment Clinician Date Menorrhagi Menorrhagi Disease Active U nivers a with a with 4-29 ity of regular regular 00:00: [place] cycle cycle 00 Medical Branch Recurrent Recurrent [...] different from the original. 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 Allergies, Adverse Reactions, Alerts Allergy Allergy Status Severity Reaction(s) Onset Inactive Treating Comm ents Source Name Type Date Date Clinician No Known DA Active U [facility] 07-09 Allergie 00:00: s 00 No Known DA Active U 2020-07 [facility] 07-25 Allergie 00:00: s 00 Unable DA Active U 2020-07 [facility] to 07-25 Assess 00:00: 00 No Known DA Active [facility] s NO KNOWN Drug Active Univers ALLERGIE Class ity of [facility] Family History Family Member Diagnosis Comments Start Date Stop Date Source Natural brother Psychiatry Universit y of [facility] Natural father Alcohol abuse Univers ity [facility] Natural father Substance abuse Unive rsity of [facility] Natural mother Psychiatry [facility] Social History Social Habit Start Date Stop Date Quantity Comments Source History SDOH University o f Alcohol Comment [place] [facility] Exposure to 2022-01-13 2022-01-23 Not sure University SARS-CoV-2 00:00:00 19:40:00 [facility] (event) Branch Alcohol intake 2022-01-18 2022-01-18 Lifetime University of 00:00:00 00:00:00 non-drinker [place] [facility] (finding) Branch Tobacco use and 2022-01-17 2022-01-17 Smokeless tobacco Un iversity of exposure 00:00:00 00:00:00 non-user [place] [facility] History [facility] 2020-04-20 2020-04-20 1 University o f Alcohol Frequency 00:00:00 00:00:00 [place] [facility] History [facility] 2020-04-20 2020-04-20 99 University o f Alcohol Std 00:00:00 00:00:00 [place] [facility] Drinks Branch History [facility] 2020-04-20 2020-04-20 1 University o f Alcohol Binge 00:00:00 00:00:00 [place] [facility] Sex Assigned At [birth year] Universit y of 00:00:00 00:00:00 [facility] Smoking Status Start Date Stop Date Source Never smoked tobacco [facility] Medications Ordered Filled Start Stop Current Ordering Indication Dosage Frequency Signature Comments Components Source Medication Medication Date Date Medication? Clinician (SIG) Name Name QUEtiapine 2021- Yes [id number] 50mg Take 1 Un kayleen 50 mg 01-17 tablet by ity of tablet 00:00: 04:59 mouth in [place] 00 :00 the Medical morning Branch and 1 tablet in the evening. Do all this for 60 days. lithium 2021- Yes [id number] 300mg Take 1 U nivers carbonate 12-07 tablet by ity of CR 300 mg 00:00: 04:59 mouth at [facility] as SR tablet 00 :00 bedtime Medical for 90 Branch days. lithium 2021- Yes [id number] 450mg Take 1 U nivers carbonate 12-07 tablet by ity of CR 450 mg 00:00: 04:59 mouth [place] SR tablet 00 :00 every Medical morning Branch for 90 days. traZODone 2021- No [id number] 50mg Take 1 Univers 50 mg 11-08 tablet by ity of tablet 00:00: 04:59 mouth at [place] 00 :00 bedtime Medical for 90 Branch days. atomoxetine 2021- No [id number] 40mg Take 1 Univers 40 mg 11-08 capsule by ity of capsule 00:00: 04:59 mouth [place] 00 :00 daily for Medical 90 days. Branch ARIPiprazol 2021-0 2- No [id number] 20mg Take 1 Univers e 20 mg 11-08 tablet by ity of tablet 00:00: 00:00 mouth [place] 00 :00 daily. Medical Branch miSOPROStoL 0 Yes [id number] 200ug Take 1 Univers 200 mcg 4-29 tablet by ity of tablet 00:00: mouth [place] 00 SEE-INSTRU Medical CTIONS. Branch Take one tab the night before and one tab the morning of procedure Immunizations Ordered Immunization Filled Immunization Date Status Commen ts Source Name Name SARS-COV-2 COVID-19 2021-06-24 Completed Unive rsity of PFIZER VACCINE 00:00:00 [facility] SARS-COV-2 COVID-19 2020-11-21 Completed Unive rsity of PFIZER VACCINE 00:00:00 [facility] SARS-COV-2 COVID-19 2020-10-24 Completed Unive rsity of PFIZER VACCINE 00:00:00 [facility] Influenza Virus 2020-07-08 Completed Universit y of Vaccine Quad .5 mL IM 00:00:00 [facility] [facility] 6+ MO Branch Meningococcal B, OMV 2018-10-31 Completed Univ ersity of 00:00:00 [facility] Influenza Virus 2018-08-29 Completed Universit y of Vaccine Quad .5 mL IM 00:00:00 [place] [facility] 6+ MO Branch Meningococcal B, OMV 2018-08-29 Completed Univ ersity of 00:00:00 [facility] Meningococcal 2018-01-17 Completed University of Polysaccharide 00:00:00 [facility] (groups A, C, Y and Branc h W-135) conjugate vaccine (MCV4P) Influenza Virus 2017-04-12 Completed Universit y of Vaccine Quad IM 3+ 00:00:00 [facility] HPV9 2017-02-01 Completed University of 00:00:00 [facility] HPV 2016-01-20 Completed University of 00:00:00 [facility] Influenza Virus 2015-07-08 Completed Universit y of Vaccine Quad IM 3+ 00:00:00 [facility] HPV9 2015-07-08 Completed University of 00:00:00 [facility] Influenza Virus 2014-04-02 Completed Universit y of Vaccine (3+ yrs) 00:00:00 [facility] Influ[facility] Virus 2013-05-22 Completed Universit y of Vaccine (3+ yrs) 00:00:00 [facility] Meningococcal 2013-05-22 Completed University of Polysaccharide 00:00:00 [facility] (groups A, C, Y and Branc h W-135) conjugate vaccine (MCV4P) TDAP 2013-05-22 Completed University of 00:00:00 [facility] Influenza Virus 2012-06-13 Completed Universit y of Vaccine 00:00:00 [facility] Influenza Virus 2011-05-18 Completed Universit y of Vaccine 00:00:00 [facility] Influenza Virus 2010-05-26 Completed Universit y of Vaccine 00:00:00 [facility] Influenza Virus 2009-06-23 Completed Universit y of Vaccine 00:00:00 [facility] Influenza Virus 2009-05-20 Completed Universit y of Vaccine 00:00:00 [facility] Influenza Virus 2007-06-01 Completed Universit y of Vaccine 00:00:00 [facility] DTAP 2006-05-24 Completed University of 00:00:00 [facility] Proquad 2006-05-24 Completed University of (MMR/VARICELLA) 00:00:00 [facility] Branch Polio (IPV/OPV) 2006-05-24 Completed Universit y of 00:00:00 [facility] HEPATITIS A 2005-05-19 Completed University of 00:00:00 [facility] Influenza Virus 2005-05-19 Completed Universit y of Vaccine 00:00:00 [facility] HEPATITIS A 2004-05-17 Completed University of 00:00:00 [facility] Polio (IPV/OPV) 2003-08-21 Completed Universit y of 00:00:00 [facility] HIB 4 Dose Schedule 2003-05-22 Completed Unive rsity of 00:00:00 [facility] MMR 2003-05-22 Completed University of 00:00:00 [facility] Pneumococcal 7 2003-05-22 Completed University of Conjugate, PCV7 00:00:00 [facility] (Prevnar7) Branch Varicella 2003-05-22 Completed University of (varivax)(chicken 00:00:00 [facility] edical pox) Branch DTAP 2003-01-01 Completed University of 00:00:00 [facility] HIB 4 Dose Schedule 2003-01-01 Completed Unive rsity of 00:00:00 [facility] Hep B, Adol or Pedi 2003-01-01 Completed Unive rsity of Dosage 00:00:00 [facility] Pneumococcal 7 2003-01-01 Completed University of Conjugate, PCV7 00:00:00 [place] [facility] (Prevnar7) Branch DTAP 2002 Completed University of 00:00:00 [facility] HIB 4 Dose Schedule 2002 Completed Unive rsity of 00:00:00 [facility] Pneumococcal 7 2002 Completed University of Conjugate, PCV7 00:00:00 [place] [facility] ical (Prevnar7) Branch Polio (IPV/OPV) 2002 Completed Universit y of 00:00:00 [facility] DTAP 2002 Completed University of 00:00:00 [facility] HIB 4 Dose Schedule 2002 Completed Unive rsity of 00:00:00 [facility] Hep B, Adol or Pedi 2002 Completed Unive rsity of Dosage 00:00:00 [facility] Polio (IPV/OPV) 2002 Completed Universit y of 00:00:00 [facility] Hep B, Adol or Pedi 2002 Completed Unive rsity of Dosage 00:00:00 [facility] Vital Signs Vital Name Observation Time Observation Value Comments Source Height 2020-09-25 23:56:00 165.1 CM Weight 2020-09-25 23:56:00 2.69 KG Systolic blood 2022-01-24 00:45:00 108 mm[Hg] Univer sity of pressure [facility] Diastolic blood 2022-01-24 00:45:00 79 mm[Hg] Unive rsity of pressure [facility] Heart rate 2022-01-24 00:45:00 101 /min [facility] Body temperature 2022-01-24 00:45:00 37.11 [facility] Res[facility] rate 2022-01-24 00:45:00 16 /min [facility] height 2022-01-24 00:45:00 160 cm [facility] Body weight 2022-01-24 00:45:00 54.885 kg [facility] BMI 2022-01-24 00:45:00 21.43 kg/m2 [facility] Oxygen saturation in 2022-01-24 00:45:00 98 /min [facility] Arterial blood by [facility] Pulse oximetry Branch Head 2009-07-13 18:51:00 51 cm [facility] Occipital-frontal [facility] circumference by [employer] Branch measure Procedures Procedure Date / Time Performing Clinician Source Performed GALV ONLY - VAGINAL 2021-12-06 17:16:00 Akiko Voss [facility] PATHOGENS BY NUCLEIC [facility] ACID TESTING POCT URINALYSIS 2021-12-06 17:10:00 [facility] URINE CULTURE 2021-12-06 17:10:00 [facility] GC & CHLAMYDIA 2021-12-06 17:10:00 [facility] AMPLIFIED ASSAY [facility] TRICHOMONAS AMPLIFIED 2021-11-26 20:20:00 Ame Ramirez [facility] GC & CHLAMYDIA 2021-11-26 20:20:00 [facility] Ame [facility] DISCLOSURE AND CONSENT, 2021-11-26 05:01:00 Doctor Unassigned, N o [facility] MEDICAL AND SURGICAL Name [facility] PROCEDURES POCT TEST 2021-11-26 00:00:00 James Ame [facility] XR FOOT 3+ VW RIGHT 2021-11-19 23:06:00 Vania Em [facility] LITHIUM 2021-10-27 19:19:00 Susan Izaguirre [facility] THYROID STIMULATING 2021-10-27 19:19:00 Nan Barba [facility] HORMONE [facility] Branch PROLACTIN 2021-10-27 19:19:00 Nan Barba [facility] Encounters Start End Encounter Admission Attending Care Care Encounter Source Date/Time Date/Time Type Type Clinicians Facility Department ID 2021-11-02 Outpatient [facility] [id number] [place] 11:00:33 [id number] Health 2021-07-09 Inpatient [facility] [id number] [facility] 12:46:00 14 2021-05-25 Inpatient [facility] [id number] [facility] 23:19:00 94 2022-02-24 2022-02-24 Outpatient R ARNALDO, [facility] [id number] Univers 13:00:00 13:00:00 [facility] [id number] ity of [facility] 2022-02-21 2022-02-21 Outpatient R [facility] [id number] Univers 08:00:00 08:00:00 [id number] ity of [facility] 2022-02-21 2022-02-21 Outpatient R SELF, [facility] [id number] Univers 08:00:00 08:00:00 MIKE ity o f [facility] 2022-01-23 2022-01-23 Emergency Kitty Kessler 1.2.840.1 [id number] Univers 19:42:00 21:04:00 Bree 11106.1.1 ity of 3.104.2.7 [place] .3.576152 Medica l .8 [place] 2022-01-23 2022-01-23 Travel 1.2.840.1 1.2.455.681 [id number] Univers 00:00:00 00:00:00 23135.1.1 350.1.13.10 ity of 3.104.2.7 4.2.7.3.698 [place] .3.940740 084.8 Medica l .8 [place] 2022-01-17 2022-01-17 Travel 1.2.840.1 1.2.182.763 [id number] Univers 00:00:00 00:00:00 89605.1.1 350.1.13.10 ity of 3.104.2.7 4.2.7.3.698 [place] .3.210147 084.8 Medica l .8 [place] 2021-12-31 2021-12-31 Office Fish, Ame 1.2.840.1 [id number] Univers 16:00:00 17:22:54 Visit Maggie Brooks 19762.1.1 ity of 3.104.2.7 [place] .3.280175 Medica l .8 [place] 2021-12-31 2021-12-31 Travel 1.2.840.1 1.2.417.937 [id number] Univers 00:00:00 00:00:00 56860.1.1 350.1.13.10 ity of 3.104.2.7 4.2.7.3.698 [place] .3.722345 084.8 Medica l .8 [place] 2021-12-20 2021-12-20 Travel 1.2.840.1 1.2.236.432 [id number] [facility] 00:00:00 00:00:00 19645.1.1 350.1.13.10 ity of 3.104.2.7 4.2.7.3.698 [place] .3.835543 084.8 Medica l .8 [place] 2021-12-06 2021-12-06 Shivani Patel 1.2.840.1 [id number] Univers 12:00:00 12:16:45 Akiko Gonzalez 87227.1.1 ity of 3.104.2.7 [place] .3.551787 Medica l .8 [place] 2021-12-06 2021-12-06 Travel 1.2.840.1 1.2.150.527 [id number] Univers 00:00:00 00:00:00 07442.1.1 350.1.13.10 ity of 3.104.2.7 4.2.7.3.698 [place] .3.820551 084.8 Medica l .8 [place] 2021-11-26 2021-11-26 Office Fish, Ame 1.2.840.1 [id number] Univers 15:00:00 15:40:48 Visit 60767.1.1 ity of 3.104.2.7 [place] .3.702925 Medica l .8 [place] 2021-11-26 2021-11-26 Travel 1.2.840.1 1.2.334.965 [id number] Univers 00:00:00 00:00:00 98957.1.1 350.1.13.10 ity of 3.104.2.7 4.2.7.3.698 [place] .3.141405 084.8 Medica l .8 [place] 2021-11-19 2021-11-19 [facility], 1.2.840.9 [id number] [facility] 17:58:13 23:59:00 Encounter Jasenia 31820.1.1 it y of 3.104.2.7 [place] .3.538189 Medica l .8 [place] 2021-11-19 2021-11-19 [facility], 1.2.840.5 [id number] [facility] 17:20:00 18:04:46 Care Jasenia 12963.1.1 ity of 3.104.2.7 [place] .3.334459 Medica l .8 [place] 2021-11-19 2021-11-19 Travel 1.2.840.1 1.2.693.071 [id number] [facility] 00:00:00 00:00:00 94092.1.1 350.1.13.10 ity of 3.104.2.7 4.2.7.3.698 [place] .3.398655 084.8 Medica l .8 [place] 2021-11-16 2021-11-16 Telephone Nan Barba 1.2.840.7 [id number] [facility] 00:00:00 00:00:00 Cam 25562.1.1 ity of 3.104.2.7 [place] .3.326928 Medica l .8 [place] 2021-11-08 2021-11-08 Travel 1.2.840.1 1.2.011.789 [id number] [facility] 00:00:00 00:00:00 43444.1.1 350.1.13.10 ity of 3.104.2.7 4.2.7.3.698 [place] .3.051619 084.8 Medica l .8 [place] 2021-10-29 2021-10-29 Office Nan Barba 1.2.840.0 [id number] [facility] 13:00:00 13:28:21 Visit Cam 97980.1.1 ity of 3.104.2.7 [place] .3.072583 Medica l .8 [place] 2021-10-29 2021-10-29 Travel 1.2.840.1 1.2.218.648 [id number] Univers 00:00:00 00:00:00 75975.1.1 350.1.13.10 ity of 3.104.2.7 4.2.7.3.698 [place] .3.264162 084.8 Medica l .8 [place] 2021-10-27 2021-10-27 Emergency Registrar Pat Patel 1.2.840.1 [id number] [facility] 12:30:00 12:45:00 Visit Pcp-Lab 80552.1.1 ity of 3.104.2.7 [place] .3.958313 Medica l .8 [place] 2021-10-27 2021-10-27 Travel 1.2.840.1 1.2.515.402 [id number] [facility] 00:00:00 00:00:00 97064.1.1 350.1.13.10 ity of 3.104.2.7 4.2.7.3.698 [place] .3.873097 084.8 Medica l .8 [place] 2020-09-25 2020-09-26 Emergency E [facility] [id number] [address] [place] [address] 23:49:00 10:04:00 [facility] Results Test Description Test Time [...] 3267) Clear Lab Interpretation (test code = 76731-1) Abnormal [facility] [id number] 20:03:00 Test Item Value Reference Range Interpretation Comments POCT PREG (test code = 1605) Negative On board controls acceptable with C Yes Line (test code = 3574) POCT PREG LOT # (test code = 3575) POCT PREG TEST DATE (test code = 3576) [facility]2022-04-29 22:12:17 Test Item Value Reference Range Interpretation Comments PROLACTIN (test code = 5836678640) 7.5 ng/mL 3.3-26.7 Lab Interpretation (test code = Normal 24747-8) [facility]YROID STIMULATING [id number] 19:43:55 Test Item Value Reference Range Interpretation Comments TSH (test code = See_Comment Biotin has been [id number]) reported to cau se a negative bias, interpret resul ts relative to pat kaycee's use of biotin. [Automated mess age] The system Yesmail h generated this result transmitted ref erence range: 0.45 - 4 .70 mIU/L. The refe rence range was not u sed to interpret this result as normal/abnor mal. Lab Interpretation (test Normal code = 22729-0) [facility]2022-04-28 00:07:55 Test Item Value Reference Range Interpretation Comments [place] (test code = 0.6 mmol/L 0.6-1.2 [id number]) MEDHAT (test code = MEDHAT) Toxic Range: ? Greater than 1.2 mmol/L Lab Interpretation (test Normal code = 89543-7) [facility]BAMAZEPHINE (TEGRETOL)2020-09-26 08:42:00 Test Item Value Reference Range Interpretation Comments CARBAMAZPN (test code = 98A) 19.3 ug/mL 4.0-12.0 HH CARBAMAZEPHINE (TEGRETOL)2020-09-26 05:04:00 Test Item Value Reference Range Interpretation Comments CARBAMAZPN (test code = 98A) 20.1 ug/mL 4.0-12.0 HH URINALYSIS WITH [id number] 02:45:00 Test Item Value Reference Range Interpretation [...] code = USPERM) /HPF NONE DRUGS OF [id number] 02:43:00 Test Item Value Reference Range Interpretation Comments DRUG SCRN (test code = URINE DRUG HDOA) SCREEN This is an unconfirmed screening result and should not be used for non-medical purposes CANNABINOD (test code Negative NEGATIVE = 88C) AMPHETAMINE (test code Negative NEGATIVE = 84A) BENZODIAZP (test code Negative NEGATIVE = 86A) BARBITURAT (test code Negative NEGATIVE = 85A) OPIATES (test code = Negative NEGATIVE 92B) COCAINE (test code = Negative NEGATIVE 87A) PHENCYCLID (test code Negative NEGATIVE = 66A) METHADONE (test code = Negative NEGATIVE 64A) DOAH (test code = DOAH.) URINE DRUG SCREEN Cut-off values are as follows: [...] and the [employer] [place] Pathologists (CAP) are more stringent than those required for this test. Therefore, the result should be interpreted with caution and close attention to other clinical and epidemiological data PRO TIME AND [id number] 00:51:00 Test Item Value Reference Range Interpretation Comments PT (test code = 11.6 s 9.8-13.6 TT) INR (test code = 1.0 INR) INRH (test code = SUGGESTED THERAPEUTIC INRH) RANGE FOR INR: 2.5 - 3.5 For [...] Heparin. Order Code is ANTI-XA COMPREHENSIVE METABOLIC [id number] 00:47:00 Test Item Value Reference Range Interpretation [...] as normal/abnormal . GFR 154 See_Comment [Automated AUSTRIAN (test mL/min/1.73m\S\2 message] The code = GFRAA) [...] to interpret this result as normal/abnormal . [id number] 00:47:00 Test Item Value Reference Range Interpretation Comments ACETAMINPH (test code = 94M) 3.6 ug/mL 10.0-30.0 L CARDIAC [id number] 00:47:00 Test Item Value Reference Range Interpretation [...] interpret th is result as normal/abnormal . [id number] 00:42:00 Test Item Value Reference Range Interpretation Comments SALICYLATE (test code = 94B) <1.7 mg/dL 2.8-20.0 L SERUM [id number] 00:38:00 Test Item Value Reference Range Interpretation [...]
[2022-02-19 23:22] LABS: Barbiturates NEGATIVE (NEGATIVE); Benzodiazepines NEGATIVE (NEGATIVE); Cocaine NEGATIVE (NEGATIVE); METHAMPHETAM NEGATIVE (NEGATIVE); Methadone NEGATIVE (NEGATIVE); Opiates NEGATIVE (NEGATIVE); Phencyclidine NEGATIVE (NEGATIVE); THC Cannibis NEGATIVE (NEGATIVE)
[2022-02-19 23:23] LABS: Hematocrit 42.9 % (36.0-45.0); Lymphocytes % 24.2 % (15.3-44.8); MCV 84.1 fL (80-100); MPV 8.7 fL (7.6-11.3)
[2022-02-19 23:27] LABS: Protime INR 1.13
[2022-02-19 23:35] LABS: ALT/SGPT 18 U/L (12-78); AST/SGOT 10 U/L (15-37); Albumin 4.1 g/dL (3.4-5.0); Alkaline Phosphatase 86 U/L (45-117); BUN Blood Urea Nitrogen 9 mg/dL (7-18); Bicarbonate 29 mmol/L (21-32); Bilirubin Total 0.2 mg/dL (0.2-1.0); Glomerular Filtration Rate 121 ml/min (=/>90); Glucose Level 94 mg/dL (74-106); Potassium 3.8 mmol/L (3.5-5.1); Protein, Total 7.5 g/dL (6.4-8.2); Sodium Level 139 mmol/L (136-145)
[2022-02-19 23:38] LABS: Bilirubin Direct < 0.1 mg/dL (0-0.2)
[2022-02-20 00:55] LABS: Urine Blood Negative (Negative); Urine Glucose Negative (Negative); Urine Protein Negative (Negative); Urine Specific Gravity 1.015 (1.005-1.030)
[2022-02-20 02:07] LABS: Urine Specific Gravity/Preg 1.015 (1.005-1.030)
--- NOTE | 2022-02-20 05:39 | ER ---
Nurse's Notes [facility] Name: Vanda Pompa Age: 21 yrs Sex: Female : 2000 Arrival Date: 02/19/2022 Time: 22:13 Bed 4 Private MD: Diagnosis: Bipolar disorder, unspecified;Impulse disorder, unspecified Presentation: 02/19 22:15 Chief complaint: Patient states: "I took a white pill, it was in my sock. I dont know tw5 what it was. I feel sleepy." EMS states: "She took an unknown pill around 0930. She is saying she is feeling sleepy, but she is acting like she normally does.". Coronavirus screen: Vaccine status: Patient reports receiving the 2nd dose of the covid vaccine. Loud[employer]. Ebola Screen: Patient negative for fever greater than or equal to 101.5 degrees Fahrenheit, and additional compatible Ebola Virus Disease symptoms Patient denies exposure to infectious person. Patient denies travel to an Ebola-affected area in the 21 days before illness onset. Initial Sepsis Screen: Does the patient meet any 2 criteria? No. Patient's initial sepsis screen is negative. Does the patient have a suspected source of infection? No. Patient's initial sepsis screen is negative. Risk Assessment: Do you want to hurt yourself or someone else? Patient reports no desire to harm self or others. Onset of symptoms was February 19, 2022 at 21:30. 22:15 Method Of Arrival: Ambulatory tw5 22:15 Acuity: FREDY 3 tw5 Triage Assessment: 22:18 General: Appears in no apparent distress. Behavior is cooperative. Pain: Denies pain. tw5 METABOLIC SPECIALIST: 22:18 LMP N/A - control method tw5 Historical: - Allergies: 22:18 No Known Allergies; tw5 - PMHx: 22:18 Asthma; Bipolar disorder; depressive disorder; tw5 - PSHx: 22:18 ear surgery; tw5 - Immunization history:: Flu vaccine is not up to date. - Social history:: Smoking status: Reported history of juuling and/or vaping. Screenin:48 Abuse screen: Denies threats or abuse. Nutritional screening: No deficits noted. kl Tuberculosis screening: No symptoms or risk factors identified. Fall Risk None identified. Assessment: 22:30 General: Appears in no apparent distress. comfortable, Behavior is calm, cooperative. kl Pain: Denies pain. Neuro: No deficits noted. Perez Agitation-Sedation Scale (RASS): 0 - Alert and Calm. Cardiovascular: No deficits noted. Rhythm is sinus rhythm. Respiratory: No deficits noted. Airway is patent Trachea midline Respiratory effort is even, unlabored. GI: No deficits noted. No signs and/or symptoms were reported involving the gastrointestinal system. GI: No signs and/or symptoms were reported involving the gastrointestinal system. Reports vomiting, x1. : No deficits noted. No signs and/or symptoms were reported regarding the genitourinary system. EENT: No deficits noted. No signs and/or symptoms were reported regarding the EENT system. Derm: No signs and/or symptoms reported regarding the dermatologic system. Musculoskeletal: No signs and/or symptoms reported regarding the musculoskeletal system. 23:48 Reassessment: Pt's mother called stating " She told me she took a little pink round jb4 pill. I looked through my pills to see what it could have been. It could have been my lisinopril 10mg tablet or my hydrochlorothiazide 25mg pill. I am not sure. She said it made her sleepy so I was thinking it was my blood pressure pill and she said she took a couple." Provider notified. 02/20 01:00 Reassessment: Patient appears in no apparent distress at this time. Patient and/or jb4 family updated on plan of care and expected duration. Pain level reassessed. Patient is alert, oriented x 3, equal unlabored respirations, skin warm/dry/pink. 02:00 Reassessment: Patient appears in no apparent distress at this time. Patient and/or jb4 family updated on plan of care and expected duration. Pain level reassessed. Patient is alert, oriented x 3, equal unlabored respirations, skin warm/dry/pink. 03:00 Reassessment: Pt resting in bed with respirations even and unlabored, no s/s of pain or jb4 distress noted. 04:00 Reassessment: Patient appears in no apparent distress at this time. Patient and/or jb4 family updated on plan of care and expected duration. Pain level reassessed. Patient is alert, oriented x 3, equal unlabored respirations, skin warm/dry/pink. Vital Signs: 02/19 22:15 BP 112 / 81; Pulse 100; Resp 18; Temp 98.5; Pulse Ox 100% on R/A; Weight 52.16 kg; tw5 Height 5 ft. 4 in. (162.56 cm); Pain 0/10; 02/20 04:27 BP 100 / 69; Resp 16; Pulse Ox 98% ; kl 06:05 BP 99 / 60; Pulse 68; Resp 16; Pulse Ox 99% on R/A; Pain 0/10; kl 02/19 22:15 Body Mass Index 19.74 (52.16 kg, 162.56 cm) tw5 ED Course: 02/19 22:13 Patient arrived in ED. ds4 22:18 Triage completed. tw5 22:18 Bethel Gloria MD is Attending Physician. kdr 22:18 Arm band placed on. tw5 22:25 Inserted saline lock: 22 gauge in right forearm, using aseptic technique. Missed kl attempt(s): 22 gauge in left forearm. 02/20 01:03 No apparent distress. Resting quietly. kl 05:00 No apparent distress. Appears to be sleeping. kl 06:05 No provider procedures requiring assistance completed. IV discontinued, intact, kl bleeding controlled, No redness/swelling at site. Pressure dressing applied. 06:06 Patient has correct armband on for positive identification. kl Administered Medications: No medications were administered Medication: 06:06 VIS not applicable for this client. kl Outcome: 05:39 Discharge ordered by . kdr 06:06 Discharged to home ambulatory. kl 06:06 Condition: stable 06:06 Discharge instructions given to patient, Instructed on discharge instructions, follow up and referral plans. Demonstrated understanding of instructions, follow-up care. 06:07 Patient left the ED. kl Signatures: Shivani Wesley, RN Bethel Brenner MD MD kdr Swanson, Donovan ds4 Jose Vera RN RN Haven Jara tw5
--- NOTE | 2022-02-20 05:39 | EDPHYS ---
Physician Documentation [facility] Name: Vanda Pompa Age: 21 yrs Sex: Female : 2000 Arrival Date: 02/19/2022 Time: 22:13 Bed 4 Private MD: ED Physician Bethel Gloria HPI: 02/20 05:43 This 21 yrs old Female presents to ER via Ambulatory with complaints of Unknown kdr medication, (1 tablet). 02/19 23:11 Patient states that she took 1 white pill or prior to arrival. Subsequently about 30 kdr minutes after that she passed out. She found out upon awakening, she states she vomited twice. She currently has no complaints. She does not know what the pill was nor does she have a specific reason for taking it other than "wiped out". Denies SI/HI she denies any other acute threat to herself or others.. Onset: The symptoms/episode began/occurred acutely, just prior to arrival. Severity of symptoms: At their worst the symptoms were very mild in the emergency department the symptoms are unchanged Pain is currently a 0 / 10. Patient has a history of similar behaviors. The patient has not recently seen a physician. 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 - Social history:: Smoking status: Reported history of juuling and/or vaping. ROS: 23:11 Constitutional: Negative for fever, chills, and weight loss, Eyes: Negative for injury, kdr pain, redness, and discharge, ENT: Negative for injury, pain, and discharge, Neck: Negative for injury, pain, and swelling, Cardiovascular: Negative for chest pain, palpitations, and edema, Respiratory: Negative for shortness of breath, cough, wheezing, and pleuritic chest pain, Abdomen/GI: Negative for abdominal pain, nausea, vomiting, diarrhea, and constipation, Back: Negative for injury and pain, : Negative for injury, bleeding, discharge, and swelling, MS/Extremity: Negative for injury and deformity, Skin: Negative for injury, rash, and discoloration, Neuro: Negative for headache, weakness, numbness, tingling, and seizure activity. Allergy/Immunology: Negative for hives, rash, and allergies, Endocrine: Negative for neck swelling, polydipsia, polyuria, polyphagia, and marked weight changes, Hematologic/Lymphatic: Negative for swollen nodes, abnormal bleeding, and unusual bruising. 23:11 Psych: Positive for Impulse disorder. Exam: 23:11 Constitutional: This is a well developed, well nourished patient who is awake, alert, kdr and in no acute distress. Head/Face: Normocephalic, atraumatic. Eyes: Pupils equal round and reactive to light, extra-ocular motions intact. Lids and lashes normal. Conjunctiva and sclera are non-icteric and not injected. Cornea within normal limits. Periorbital areas with no swelling, redness, or edema. Neck: Trachea midline, no thyromegaly or masses palpated, and no cervical lymphadenopathy. Supple, full range of motion without nuchal rigidity, or vertebral point tenderness. No Meningismus. Chest/axilla: Normal chest wall appearance and motion. Nontender with no deformity. No lesions are appreciated. Cardiovascular: Regular rate and rhythm with a normal S1 and S2. No gallops, murmurs, or rubs. Normal PMI, no JVD. No pulse deficits. Respiratory: Lungs have equal breath sounds bilaterally, clear to auscultation and percussion. No rales, rhonchi or wheezes noted. No increased work of breathing, no retractions or nasal flaring. Abdomen/GI: Soft, non-tender, with normal bowel sounds. No distension or tympany. No guarding or rebound. No evidence of tenderness throughout. Back: No spinal tenderness. No costovertebral tenderness. Full range of motion. Skin: Warm, dry with normal turgor. Normal color with no rashes, no lesions, and no evidence of cellulitis. MS/ Extremity: Pulses equal, no cyanosis. Neurovascular intact. Full, normal range of motion. Neuro: Awake and alert, GCS 15, oriented to person, place, time, and situation. Cranial nerves II-XII grossly intact. Motor strength 5/5 in all extremities. Sensory grossly intact. Cerebellar exam normal. Normal gait. Psych: Awake, alert, with orientation to person, place and time. Behavior, mood, and affect are within normal limits. Vital Signs: 22:15 BP 112 / 81; Pulse 100; Resp 18; Temp 98.5; Pulse Ox 100% on R/A; Weight 52.16 kg; tw5 Height 5 ft. 4 in. (162.56 cm); Pain 0/10; 02/20 04:27 BP 100 / 69; Resp 16; Pulse Ox 98% ; kl 06:05 BP 99 / 60; Pulse 68; Resp 16; Pulse Ox 99% on R/A; Pain 0/10; kl 02/19 22:15 Body Mass Index 19.74 (52.16 kg, 162.56 cm) tw5 MDM: 02/19 23:11 Data reviewed: vital signs, nurses notes, lab test result(s). Counseling: I had a kdr detailed discussion with the patient and/or guardian regarding: the historical points, exam findings, and any diagnostic results supporting the discharge/admit diagnosis, lab results, the need for outpatient follow up. 02/20 00:46 ED course: Continues to be stable in the ED. Her vital signs are stable. Laboratory kdr work is unremarkable. Drug screen is negative. Alcohol also negative.. 05:39 Patient medically screened. kdr 05:41 ED course: She continues to be stable in the ED. There is been no hemodynamic kdr instability since she has been here. While it is unknown what the substance was that she ingested, it appears to have had no impact on her hemodynamic status. Patient has been out incident in the ED. I believe she can be safely discharged home. 02/19 22:15 Order name: Acetaminophen; Complete Time: 00:45 02/19 22:15 Order name: Basic Metabolic Panel; Complete Time: 00:45 02/19 22:15 Order name: CBC with Diff; Complete Time: 00:45 02/19 22:15 Order name: ETOH Level; Complete Time: 00:45 02/19 22:15 Order name: Hepatic Function; Complete Time: 00:45 02/19 22:15 Order name: PT-INR; Complete Time: 00:45 02/19 22:15 Order name: Ptt, Activated; Complete Time: 00:45 02/19 22:15 Order name: Salicylate; Complete Time: 00:45 02/19 22:15 Order name: Urine Drug Screen; Complete Time: 00:45 5 02/19 22:15 Order name: IV Saline Lock; Complete Time: 22:47 5 02/19 22:15 Order name: Labs collected and sent; Complete Time: 04:31 02/19 22:15 Order name: Suicide Screening ([facility]); Complete Time: 22:19 tw5 02/20 00:55 Order name: Urine Dipstick-Ancillary [facility] 02/20 01:02 Order name: Urine --Ancillary (enter results) ds4 02/19 22:15 Order name: Urine Dipstick-Ancillary (obtain specimen); Complete Time: 01:00 tw5 02/19 22:15 Order name: Urine Test (obtain specimen); Complete Time: 01:00 Administered Medications: No medications were administered Disposition Summary: 02/20/22 05:39 Discharge Ordered Location: Home kdr Problem: new kdr Symptoms: have improved kdr Condition: Stable kdr Diagnosis - Bipolar disorder, unspecified kdr - Impulse disorder, unspecified kdr Followup: kdr - With: Private Physician - When: 2 - 3 days - Reason: If symptoms return, Further diagnostic work-up, Recheck today's complaints, Continuance of care, Re-evaluation by your physician Discharge Instructions: - Discharge Summary Sheet kdr - Bipolar 1 Disorder kdr - Impulse Control Disorders kdr Forms: - Medication Reconciliation Form kdr - Thank You Letter kdr Signatures: Dispatcher [employer] Bethel Mejia MD MD kdr Haven Mccall tw5
[2022-02-20 08:09] VITALS: TEMP 98.5
[2022-02-20 08:39] VITALS: BP 99/60; O2SAT 99
== END 2022-02-20 06:07 | disposition home or self-care (01) ==
LOC: ER 22:13
DX: F63.9 Impulse disorder, unspecified (principal); F31.9 Bipolar disorder, unspecified
CPT/HCPCS: 36415; 80048; 80076; 80307; 80320; 80329; 81003; 81025; 85025; 85610; 85730; 99284

== ENCOUNTER 2022-03-04 21:02 | Emergency (ER) | payer OTHER ==
--- OUTSIDE RECORDS SUMMARY | 2022-03-04 21:21 | XMS REPORT | Continuity of Care Document ---
:2000 Author Organization [facility] t Address [address] [place] [address] Dr. Bliss. [address] [place] [address] Care Team Providers Name Role Phone Simon ROBERTS, Hailey Luciano Primary Care Physician Jaguar Rizzo MD Attending Clinician Doctor Unassigned, [place] Attending Clinician Unavailable Kitty Crews Attending Clinician Ame Ramirez MD Attending Clinician Maggie Brooks MD Attending Clinician Shivani Castaneda Attending Clinician Akiko Voss MD Attending Clinician DR ALAINA PARRY Attending Clinician Unavailable DR ALAINA PARRY Admitting Clinician Unavailable Payers Payer Name Policy Type Policy Number Effective Date Expiration Date S tex [facility] MEDICAID STAR [id number] 2021 00:00:00 Problems Condition Condition Condition Status [...] uterine 0-20 ity of bleeding bleeding 00:00: [place] (AUB) (AUB) 00 Medical Branch SANDRA SANDRA Disease Active Univers (generaliz (generaliz 1-11 it y of ed [place] disorder[place] disorder[place] 00 [facility] [place] Branch Attention Attention Disease Active 2008-07 Overview: Univers deficit deficit 2-22 Formatt[place] ity o f hyperactiv hyperactiv 00:00: g of this [place] ity ity 00 note Medical disorder disorder might be Bran ch (ADHD) (ADHD) different from the original. 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 Manager Utility Allergies, Adverse Reactions, Alerts Allergy [...] Source Natural brother Psychiatry Universit y of [facility] Natural father Alcohol abuse Univers ity [facility] Natural father Substance abuse Unive rsity of [facility] Natural mother Psychiatry [facility] Social History Social Habit Start Date Stop Date Quantity Comments Source History SDRI University o f Alcohol Comment [place] Med ical Branch Exposure to 2022-02-14 2022-02-24 Not sure [facility] SARS-CoV-2 00:00:00 12:54:00 [facility] (event) Branch Alcohol intake 2022-02-21 2022-02-21 Lifetime University of 00:00:00 00:00:00 non-drinker [facility] (finding) Branch Tobacco use and 2022-01-17 2022-01-17 Smokeless tobacco Un iversity of exposure 00:00:00 00:00:00 non-user [place] [facility] Branch History SDOH 2020-04-20 2020-04-20 1 University o f Alcohol Frequency 00:00:00 00:00:00 [place] M edical Branch History [facility] 2020-04-20 2020-04-20 99 [place] o f Alcohol Std 00:00:00 00:00:00 [place] Medical Drinks Branch History [facility] 2020-04-20 2020-04-20 1 [place] o f Alcohol Binge 00:00:00 00:00:00 [place] Medic al Branch Sex Assigned At [birth year] Universit y of 00:00:00 00:00:00 [facility] Smoking Status Start Date Stop Date Source Never smoked tobacco [facility] Medications Ordered Filled Start Stop Current Ordering Indication Dosage Frequency Signature Comments Components Source Medication Medication Date Date Medication? Clinician (SIG) Name Name QUEtiapine 2021- Yes [id number] 50mg Take 1 Un kayleen 50 mg 01-17 tablet by ity of tablet 00:00: 04:59 mouth in [place] 00 :00 the Medical morning Branch and 1 tablet in the evening. Do all this for 60 days. lithium 2021- Yes [id number] 450mg Take 1 U nivers carbonate 12-07 tablet by ity of CR 450 mg 00:00: 04:59 mouth [place] SR tablet 00 :00 every Medical morning Branch for 90 days. lithium 2021- Yes [id number] 300mg Take 1 U nivers carbonate 12-07 tablet by ity of CR 300 mg 00:00: 04:59 mouth at [place] as SR tablet 00 :00 bedtime Medical for 90 Branch days. traZODone 2021- No [id number] 50mg Take 1 Univers 50 mg 11-08 tablet by ity of tablet 00:00: 04:59 mouth at [place] 00 :00 bedtime Medical for 90 Branch days. atomoxetine 2021- No [id number] 40mg Take 1 Univers 40 mg 11-08 capsule by ity of capsule 00:00: 04:59 mouth [place] 00 :00 daily for Medical 90 days. Branch miSOPROStoL Yes [id number] 200ug Take 1 Univers 200 mcg 4-29 tablet by ity of tablet 00:00: mouth [place] 00 SEE-INSTRU Medical CTIONS. Branch Take one tab the night before and one tab the morning of procedure Immunizations Ordered Immunization Filled Immunization Date Status Commen ts Source Name Name SARS-COV-2 COVID-19 2021-06-24 Completed Unive rsity of PFIZER VACCINE 00:00:00 [facility] SARS-COV-2 COVID-19 2020-11-21 Completed Unive rsity of PFIZER VACCINE 00:00:00 [facility] SARS-COV-2 COVID-19 2020-10-24 Completed Unive rsity of PFIZER VACCINE 00:00:00 [facility] Influenza Virus 2020-07-08 Completed Universit y of Vaccine Quad .5 mL IM 00:00:00 [place] Medical 6+ MO Branch Meningococcal B, OMV 2018-10-31 Completed Univ ersity of 00:00:00 [facility] Influenza Virus 2018-08-29 Completed Universit y of Vaccine Quad .5 mL IM 00:00:00 [place] Medical 6+ MO Branch Meningococcal B, OMV 2018-08-29 Completed Univ ersity of 00:00:00 [facility] Meningococcal 2018-01-17 Completed University of Polysaccharide 00:00:[address] [facility] [place] (groups A, C, Y and Branc h W-135) conjugate vaccine (MCV4P) Influenza Virus 2017-04-12 Completed Universit y of Vaccine Quad IM 3+ 00:00:00 [facility] Branch HPV9 2017-02-01 Completed University of 00:00:00 [facility] HPV 2016-01-20 Completed University of 00:00:00 [facility] Influenza Virus 2015-07-08 Completed Universit y of Vaccine Quad IM 3+ 00:00:00 [facility] Branch HPV9 2015-07-08 Completed University of 00:00:00 [facility] Influenza Virus 2014-04-02 Completed Universit y of Vaccine (3+ yrs) 00:00:00 [facility] Influenza Virus 2013-05-22 Completed Universit y of Vaccine (3+ yrs) 00:00:00 [facility] Meningococcal 2013-05-22 Completed University of Polysaccharide 00:00:00 [facility] (groups A, C, Y and Branc h W-135) conjugate vaccine (MCV4P) TDAP 2013-05-22 Completed University of 00:00:00 [facility] Influenza Virus 2012-06-13 Completed Universit y of Vaccine 00:00:00 [facility] Influenza Virus 2011-05-18 Completed Universit y of Vaccine 00:00:00 [facility] Influenza Virus 2010-05-26 Completed Universit y of Vaccine 00:00:00 [facility] Influenza Virus 2009-06-23 Completed Universit y of Vaccine 00:00:00 [facility] Influenza Virus 2009-05-20 Completed Universit y of Vaccine 00:00:00 [facility] Influenza Virus 2007-06-01 Completed Universit y of Vaccine 00:00:00 [facility] DTAP 2006-05-24 Completed University of 00:00:00 [facility] Proquad 2006-05-24 Completed University of (MMR/VARICELLA) 00:00:00 [facility] Branch Polio (IPV/OPV) 2006-05-24 Completed Universit y of 00:00:00 [facility] HEPATITIS A 2005-05-19 Completed University of 00:00:00 [facility] Influenza Virus 2005-05-19 Completed Universit y of Vaccine 00:00:00 [facility] HEPATITIS A 2004-05-17 Completed University of 00:00:00 [facility] Polio (IPV/OPV) 2003-08-21 Completed Universit y of 00:00:00 [facility] HIB 4 Dose Schedule 2003-05-22 Completed Unive rsity of 00:00:00 [facility] MMR 2003-05-22 Completed University of 00:00:00 [facility] Pneumococcal 7 2003-05-22 Completed University of Conjugate, PCV7 00:00:00 [facility] (Prevnar7) Branch Varicella 2003-05-22 Completed University of (varivax)(chicken 00:00:00 [place] M edical pox) Branch DTAP 2003-01-01 Completed University of 00:00:00 [facility] HIB 4 Dose Schedule 2003-01-01 Completed Unive rsity of 00:00:00 [facility] Hep B, Adol or Pedi 2003-01-01 Completed Unive rsity of Dosage 00:00:00 [facility] Pneumococcal 7 2003-01-01 Completed University of Conjugate, PCV7 00:00:00 [facility] (Prevnar7) Branch DTAP 2002 Completed University of 00:00:00 [facility] HIB 4 Dose Schedule 2002 Completed Unive rsity of 00:00:00 [place] [facility] Pneumococcal 7 2002 Completed University of Conjugate, PCV7 00:00:00 [place] Med ical (Prevnar7) Branch Polio (IPV/OPV) 2002 Completed Universit y of 00:00:00 [facility] DTAP 2002 Completed University of 00:00:00 [facility] HIB 4 Dose Schedule 2002 Completed Unive rsity of 00:00:00 [facility] Hep B, Adol or Pedi 2002 Completed Unive rsity of Dosage 00:00:00 [facility] Polio (IPV/OPV) 2002 Completed Universit y of 00:00:00 [facility] Hep B, Adol or Pedi 2002 Completed Unive rsity of Dosage 00:00:00 [facility] Vital Signs Vital Name Observation Time Observation Value Comments Source Height 2020-09-25 23:56:00 165.1 CM Weight 2020-09-25 23:56:00 2.69 KG Body temperature 2022-02-24 18:37:00 37 [facility] Body weight 2022-02-24 18:37:00 51.801 kg [facility] BMI 2022-02-24 18:37:00 20.23 kg/m2 [facility] Systolic blood 2022-02-21 12:51:00 133 mm[Hg] Univer sity of pressure [facility] Diastolic blood 2022-02-21 12:51:00 49 mm[Hg] Unive rsity of pressure [facility] Heart rate 2022-02-21 12:51:00 108 /min [facility] Respiratory rate 2022-02-21 12:51:00 18 /min [facility] Body height 2022-02-21 12:51:00 160 cm [facility] Oxygen saturation in 2022-01-24 00:45:00 98 /min [facility] Arterial blood by [facility] Pulse oximetry Branch Head 2009-07-13 18:51:00 51 cm [facility] of Occipital-frontal [facility] circumference by [place]ape Branch measure Procedures Procedure Date / Time Performing Clinician Source Performed XR PELVIS 3+ VW 2022-02-24 18:13:00 So, [facility] EXTERNAL PROVIDER RECORDS 2022-02-22 05:01:00 Doctor Unassigned, [facility] [place] [facility] EMERGENCY SERVICES 2022-01-23 05:01:00 Doctor Unassigned, [facility] AGREEMENTS AND [place] [facility] AUTHORIZATIONS EMERGENCY DEPARTMENT 2022-01-23 05:01:00 Doctor Unassigned, [facility] DOCUMENTS [place] [facility] GALV ONLY - VAGINAL 2021-12-06 17:16:[address] [facility] PATHOGENS BY NUCLEIC ACID [facility] TESTING POCT URINALYSIS 2021-12-06 17:10:00 Akiko Voss [facility] URINE CULTURE 2021-12-06 17:10:00 Bipin [facility] GC & CHLAMYDIA AMPLIFIED 2021-12-06 17:10:00 Akiko Voss [facility] ASSAY Medical Branch Encounters Start End Encounter Admission Attending Care Care Encounter Source Date/Time Date/Time Type Type Clinicians Facility Department ID 2021-11-02 Outpatient [facility] [id number] [place] 11:00:33 [id number] [facility] 2021-07-09 Inpatient [facility] [id number] [facility] 12:46:00 14 2021-05-25 Inpatient [facility] [id number] [facility] 23:19:00 94 2022-02-24 2022-02-24 [facility], 1.2.840.9 [id number] [facility] 13:02:19 23:59:00 Encounter Jaguar 27171.1.1 it y of 3.104.2.7 [place] .3.004998 Medica l .8 Branch 2022-02-24 2022-02-24 Office [facility] 1.2.840.2 [id number] [facility] 13:00:00 14:33:28 Visit Jaguar 90791.1.1 ity of 3.104.2.7 [place] .3.719669 Medica l .8 Branch 2022-02-24 2022-02-24 Travel 1.2.840.1 1.2.851.123 [id number] Univers 00:00:00 00:00:00 65792.1.1 350.1.13.10 ity of 3.104.2.7 4.2.7.3.698 [place] .3.784888 084.8 Medica l .8 [place] 2022-02-22 2022-02-22 Orders Doctor 1.2.840.9 [id number] Univers 00:00:00 00:00:00 Only Unassigned, 48425.1.1 ity of [place] 3.104.2.7 [place] .3.427506 Medica l .8 [place] 2022-02-21 2022-02-21 Travel 1.2.840.1 1.2.385.495 [id number] Univers 00:00:00 00:00:00 72056.1.1 350.1.13.10 ity of 3.104.2.7 4.2.7.3.698 [place] .3.600018 084.8 Medica l .8 [place] 2022-01-23 2022-01-23 Emergency Kitty Kessler 1.2.840.9 [id number] Univers 19:42:00 21:04:00 Bree 11268.1.1 ity of 3.104.2.7 [place] .3.703404 Medica l .8 [place] 2022-01-23 2022-01-23 Travel 1.2.840.1 1.2.163.618 [id number] Univers 00:00:00 00:00:00 48633.1.1 350.1.13.10 ity of 3.104.2.7 4.2.7.3.698 [place] .3.932314 084.8 Medica l .8 [place] 2022-01-17 2022-01-17 Travel 1.2.840.1 1.2.209.267 [id number] Univers 00:00:00 00:00:00 58989.1.1 350.1.13.10 ity of 3.104.2.7 4.2.7.3.698 [place] .3.269609 084.8 Medica l .8 [place] 2021-12-31 2021-12-31 Office Fish, Ame 1.2.840.0 [id number] [facility] 16:00:00 17:22:54 Visit Maggie Brooks 25425.1.1 ity of 3.104.2.7 [place] .3.465163 Medica l .8 [place] 2021-12-31 2021-12-31 Travel 1.2.840.1 1.2.097.353 [id number] Univers 00:00:00 00:00:00 52835.1.1 350.1.13.10 ity of 3.104.2.7 4.2.7.3.698 [place] .3.218277 084.8 Medica l .8 [place] 2021-12-20 2021-12-20 Travel 1.2.840.1 1.2.013.169 [id number] [facility] 00:00:00 00:00:00 21011.1.1 350.1.13.10 ity of 3.104.2.7 4.2.7.3.698 [place] .3.532507 084.8 Medica l .8 [place] 2021-12-06 2021-12-06 Urgent Shivani Penaloza 1.2.840.1 [id number] [facility] 12:00:00 12:16:45 Care Akiko Voss 19351.1.1 ity of 3.104.2.7 [place] .3.466079 Medica l .8 [place] 2021-12-06 2021-12-06 Travel 1.2.840.1 1.2.910.295 [id number] [facility] 00:00:00 00:00:00 92060.1.1 350.1.13.10 ity of 3.104.2.7 4.2.7.3.698 [place] .3.461715 084.8 Medica l .8 [place] 2021-07-09 2021-07-09 Emergency [facility] [id number] [facility] 12:46:00 12:46:00 14 2021-05-25 2021-05-25 Emergency [facility] [id number] [facility] 23:19:00 23:19:00 94 2020-09-25 2020-09-26 Emergency E BRINDA [facility] [id number] [address] [place] [address] 23:49:00 10:04:00 [facility] Results Test Description Test Time Test [...] 3267) Clear Lab Interpretation (test code = 82565-4) [facility]normal [facility] [id number] 14:05:00 Test Item Value Reference Range Interpretation Comments Coronavirus NAAT, COVD19 SARS results, (test code = including Patient [id number]) Name, or MRN, were Coronavirus NAAT, COVD19 ical-devices/emergenc (test code = d-uuv-yslldivxodbaet. [id number]) SARS-CoV-2 NAAT Result: Positive by RT-PCR A (test code = SARS-CoV-2 NAAT Result:) COVID-19 Status: AsymptomaticHCG, Urine Qual (LAB)2021-07-09 14:05:00 Test Item Value Reference Range Interpretation Comments HCG, Urine, Qual (test code = HCGU) Negative Negative Drug Screen,[id number] 14:05:00 Test Item Value Reference Range Interpretation Comments PCP Phencyclidine Screen,Urine (test Negative Negative code = PCPU) Amphetamine Screen,Urine (test code Negative Negative = AMPU) Methadone Screen,Urine (test code = Negative Negative METHU) Opiate Screen,Urine (test code = Negative Negative UOPIS) Barbituates Screen,Urine (test code Negative Negative = BARBU) Benzodiazepines Screen,Urine (test Negative Negative code = UBENZS) Cocaine Screen,Urine (test code = Negative Negative UCOCS) Cannabinoid Screen,Urine (test code Negative Negative = UTHCS) Propoxyphene Screen, Urine (test Negative Negative code = UPROP) UA, Urinalysis w [id number] 14:05:00 Test Item Value Reference Range Interpretation Comments Color,Urine (test code = Yellow Yellow UCOL) Clarity,Urine (test code = Clear Clear UCLAR) Ph, Urine (test code = UPH) 8.5 5.0-8.0 H Specific Brock,Urine 1.020 1.005-1.030 N (test code = USG) Blood,Urine (test code = Negative cells/uL Negative UBLD) Protein,Urine (test code = 100 mg/dL Negative A UPRO) Glucose,Urine (UA) (test Negative mg/dL Negative code = UGLU) Ketones,Urine (test code = Trace mg/dL Negative A UKET) Nitrate,Urine (test code = Negative Negative UNIT) Bilirubin,Urine (test code Negative mg/dL Negative = UBIL) Urobilinogen,Urine (test 0.2 mg/dL Negative code = UURO) Leukocyte Esterase,Urine Negative cells/uL Negative (test code = ULEU) RBC,Urine (test code = None Seen /HPF None Seen URBC.XX) WBC,Urine (test code = 0-2 /HPF None Seen UWBC.XX) Squamous Epithelial 0-2 /HPF None Seen Cell,Urine (test code = USQEPI.XX) Bacteria,Urine (test code = Few /HPF None Seen A UBACT) Complete Blood Count Auto [id number] 13:20:00 Test Item Value Reference Range Interpretation Comments White Blood Count (test code = 9.9 x10 3/uL 4.4-10.5 N WBCT) Red Blood Count (test code = 4.48 x10 6/uL 3.75-5.20 N RBC) Hemoglobin (test code = HGBT) 13.0 g/dL 12.2-14.8 N Hematocrit (test code = HCTT) 41.6 % 36.5-44.4 N Mean Corpuscular Volume (test 92.90 fL 80.00-100.00 N code = MCV) Mean Corpuscular Hemoglobin 29.0 pg 27.0-32.5 N (test code = MCH) Mean Corpuscular HGB Conc 31.30 g/dL 32.00-37.50 L (test code = MCHC) RDW Coefficient of Variation 12.2 % 11.5-14.5 N (test code = RDWCV) Platelet Count (test code = 389.0 x10 3/uL 140.0-440.0 N PLTT) Mean Platelet Volume (test 10.4 fL code = MPV) Immature Granulocytes % (Auto) 0.2 % 0.0-5.0 N (test code = IMMGRAN%) Neutrophils % (Auto) (test 69.6 % 36.0-70.0 N code = NE%) Lymphocytes % (Auto) (test 24.2 % 12.0-44.0 N code = LY%) Monocytes % (Auto) (test code 5.3 % 0.0-11.0 N = MO%) Eosinophils % (Auto) (test 0.0 % 0.0-7.0 N code = EO%) Basophils % (Auto) (test code 0.7 % 0.0-2.0 N = BA%) Immature Granulocytes # (Auto) 0.02 x10 3/uL (test code = IMMGRAN#) Neutrophils # (Auto) (test 6.9 x10 3/uL 1.6-7.4 N code = NE#) Lymphocytes # (Auto) (test 2.39 x10 3/uL 0.50-4.60 N code = LY#) Monocytes # (Auto) (test code 0.52 x10 3/uL 0.00-1.20 N = MO#) Eosinophils # (Auto) (test 0.00 x10 3/uL 0.00-0.74 N code = EO#) Basophils # (Auto) (test code 0.07 x10 3/uL 0.00-0.21 N = BA#) nRBC Abs (test code = NRBCA) 0 nRBC Pct (test code = NRBCP) 0 % Comprehensive Metabolic [id number] 13:20:00 Test Item Value Reference Range Interpretation Comments SODIUM (test code = NA) 141.0 mmol/L 136.0-145.0 N Potassium,K (test code = K) 4.3 mmol/L 3.0-5.1 N Chloride (test code = CL) 107 mmol/L 98-107 N Carbon Dioxide (test code = 28 mmol/L 20-31 N CO2) Anion Gap (test code = GAP) 6 mmol/L 5-15 N Blood Urea Nitrogen (test code 14 mg/dL 9-23 N = BUN) Creatinine (test code = CREATT) 0.67 mg/dL 0.55-1.02 N Creatinine Clr Calc Pharmacy 101.54 mL/min (test code = CRCLPHA) Estimated GFR ( Nohemi > 60 mL/min/1.73m2 (test code = EGFRAA) Estimated GFR (Non Afr Nohemi > 60 mL/min/1.73m2 (test code = EGFRNAA) BUN/Creatinine Ratio (test code 21 ratio 10-20 H = BCRATIO) Glucose (test code = GLU) 80 mg/dL 74-106 N Osmolality,Calculated (test 291.0 code = OSMOC) Calcium (test code = CA) 9.8 mg/dL 8.3-10.6 N Bilirubin,Total (test code = 0.5 mg/dL 0.2-1.1 N BILIT) Aspartate Amino Transferase 30 U/L 0-34 N (test code = AST) Alanine Aminotransferase (test 19 U/L 10-49 N code = ALT) Total Protein (test code = TP) 6.8 g/dL 5.7-8.2 N Albumin Level (test code = ALB) 4.5 g/dL 3.2-4.8 N Globulin (test code = GLOB) 2.3 mg/dL 2.3-3.5 N Albumin/Globulin Ratio (test 2.0 ratio 0.8-2.0 N code = AGRATIO) Alkaline Phosphatase (test code 72 U/L 46-116 N = ALP) Ethanol [id number] 13:20:00 Test Item Value Reference Range Interpretation Comments Ethanol (test code < 3 mg/dL The pharm acological = ETOH) response to blo od alcohol levels mayvary from individual to i ndividual. The fatal ezio ntrationhas been reported t o be >400mg/dL. HCG, Urine Qual (LAB)2021-05-26 00:20:00 Test Item Value Reference Range Interpretation Comments HCG, Urine, Qual (test code = HCGU) Negative Negative UA, Urinalysis Rflx [id number] 00:20:00 Test Item Value Reference Range Interpretation Comments Color,Urine (test code = Yellow Yellow UCOL) Clarity,Urine (test code = Clear Clear UCLAR) PH,Urine (test code = 7.5 5.5-8.5 UPH.XX) Specific Brock,Urine 1.020 1.005-1.030 N (test code = USG) Blood,Urine (test code = Negative cells/uL Negative UBLD) Protein,Urine (test code = Negative mg/dL Negative UPRO) Glucose,Urine (UA) (test Negative mg/dL Negative code = UGLU) Ketones,Urine (test code = Negative mg/dL Negative UKET) Nitrate,Urine (test code = Negative Negative UNIT) Bilirubin,Urine (test code Negative mg/dL Negative = UBIL) Urobilinogen,Urine (test 0.2 mg/dL Negative code = UURO) Leukocyte Esterase,Urine Trace cells/uL Negative (test code = ULEU) Urine [id number] 00:20:00 Test Item Value Reference Range Interpretation Comments RBC,Urine (test code = URBC.XX) 0-5 /HPF None Seen WBC,Urine (test code = UWBC.XX) 6-10 /HPF None Seen A Squamous Epithelial Cell,Urine 74-200 /HPF None Seen A (test code = USQEPI.XX) Bacteria,Urine (test code = Moderate /HPF None Seen A UBACT) Drug Screen,[id number] 00:20:00 Test Item Value Reference Range Interpretation Comments PCP Phencyclidine Screen,Urine (test Negative Negative code = PCPU) Amphetamine Screen,Urine (test code Negative Negative = AMPU) Methadone Screen,Urine (test code = Negative Negative METHU) Opiate Screen,Urine (test code = Negative Negative UOPIS) Barbituates Screen,Urine (test code Negative Negative = BARBU) Benzodiazepines Screen,Urine (test Negative Negative code = UBENZS) Cocaine Screen,Urine (test code = Negative Negative UCOCS) Cannabinoid Screen,Urine (test code Negative Negative = UTHCS) Propoxyphene Screen, Urine (test Negative Negative code = UPROP) Complete Blood Count Auto [id number] 00:09:00 Test Item Value Reference Range Interpretation Comments White Blood Count (test code = 9.7 x10 3/uL 4.4-10.5 N WBCT) Red Blood Count (test code = 4.84 x10 6/uL 3.75-5.20 N RBC) Hemoglobin (test code = HGBT) 14.1 g/dL 12.2-14.8 N Hematocrit (test code = HCTT) 45.4 % 36.5-44.4 H Mean Corpuscular Volume (test 93.80 fL 80.00-100.00 N code = MCV) Mean Corpuscular Hemoglobin 29.1 pg 27.0-32.5 N (test code = MCH) Mean Corpuscular HGB Conc 31.10 g/dL 32.00-37.50 L (test code = MCHC) RDW Coefficient of Variation 12.6 % 11.5-14.5 N (test code = RDWCV) Platelet Count (test code = 412.0 x10 3/uL 140.0-440.0 N PLTT) Mean Platelet Volume (test 10.2 fL code = MPV) Immature Granulocytes % (Auto) 0.1 % 0.0-5.0 N (test code = IMMGRAN%) Neutrophils % (Auto) (test 64.7 % 36.0-70.0 N code = NE%) Lymphocytes % (Auto) (test 28.0 % 12.0-44.0 N code = LY%) Monocytes % (Auto) (test code 6.0 % 0.0-11.0 N = MO%) Eosinophils % (Auto) (test 0.2 % 0.0-7.0 N code = EO%) Basophils % (Auto) (test code 1.0 % 0.0-2.0 N = BA%) Immature Granulocytes # (Auto) 0.01 x10 3/uL (test code = IMMGRAN#) Neutrophils # (Auto) (test 6.2 x10 3/uL 1.6-7.4 N code = NE#) Lymphocytes # (Auto) (test 2.70 x10 3/uL 0.50-4.60 N code = LY#) Monocytes # (Auto) (test code 0.58 x10 3/uL 0.00-1.20 N = MO#) Eosinophils # (Auto) (test 0.02 x10 3/uL 0.00-0.74 N code = EO#) Basophils # (Auto) (test code 0.10 x10 3/uL 0.00-0.21 N = BA#) nRBC Abs (test code = NRBCA) 0 nRBC Pct (test code = NRBCP) 0 % Comprehensive Metabolic [id number] 00:09:00 Test Item Value Reference Range Interpretation Comments SODIUM (test code = NA) 141.0 mmol/L 136.0-145.0 N Potassium,K (test code = K) 4.3 mmol/L 3.0-5.1 N Chloride (test code = CL) 105 mmol/L 98-107 N Carbon Dioxide (test code = CO2) 31 mmol/L 20-31 N Anion Gap (test code = GAP) 5 mmol/L 5-15 N Blood Urea Nitrogen (test code = 12 mg/dL 9-23 N BUN) Creatinine (test code = CREATT) 0.73 mg/dL 0.55-1.02 N Creatinine Clr Calc Pharmacy 93.20 mL/min (test code = CRCLPHA) Estimated GFR ( Nohemi > 60 mL/min/1.73m2 (test code = EGFRAA) Estimated GFR (Non Afr Nohemi > 60 mL/min/1.73m2 (test code = EGFRNAA) BUN/Creatinine Ratio (test code 16 ratio 10-20 N = BCRATIO) Glucose (test code = GLU) 90 mg/dL 74-106 N Osmolality,Calculated (test code 291.2 = OSMOC) Calcium (test code = CA) 10.8 mg/dL 8.3-10.6 H Bilirubin,Total (test code = 0.4 mg/dL 0.2-1.1 N BILIT) Aspartate Amino Transferase 18 U/L 0-34 N (test code = AST) Alanine Aminotransferase (test 21 U/L 10-49 N code = ALT) Total Protein (test code = TP) 7.4 g/dL 5.7-8.2 N Albumin Level (test code = ALB) 5.1 g/dL 3.2-4.8 H Globulin (test code = GLOB) 2.3 mg/dL 2.3-3.5 N Albumin/Globulin Ratio (test 2.2 ratio 0.8-2.0 H code = AGRATIO) Alkaline Phosphatase (test code 83 U/L 46-116 N = ALP) Ethanol [id number] 00:09:00 Test Item Value Reference Range Interpretation Comments Ethanol (test code < 3 mg/dL The pharm acological = ETOH) response to blo od alcohol levels mayvary from individual to i ndividual. The fatal ezio ntrationhas been reported t o be >400mg/dL. Coronavirus PCR, COVID19 [id number] 00:08:00 Test Item Value Reference Range Interpretation Comments Coronavirus PCR, For use under Emergency COVID19 Rapid (test Use Authorization (EUA) code = SARSCOV2) only. Coronavirus PCR, Reference Range: COVID19 Rapid (test Negative code = YRRKVCB16.1) SARS-CoV-2 PCR Result: Negative by RT-PCR (test code = SARS-CoV-2 PCR Result:) COVID-19 Status: AsymptomaticCARBAMAZEPHINE (TEGRETOL)2020-09-26 08:42:00 Test Item Value Reference Range Interpretation Comments CARBAMAZPN (test code = 98A) 19.3 ug/mL 4.0-12.0 HH CARBAMAZEPHINE (TEGRETOL)2020-09-26 05:04:00 Test Item Value Reference Range Interpretation Comments CARBAMAZPN (test code = 98A) 20.1 ug/mL 4.0-12.0 HH URINALYSIS WITH [id number] 02:45:00 Test Item Value Reference Range Interpretation [...] code = USPERM) /HPF NONE DRUGS OF [id number] 02:43:00 Test Item Value Reference Range Interpretation [...] clinical and epidemiological data PRO TIME AND [id number] 00:51:00 Test Item Value Reference Range Interpretation [...] Heparin. Order Code is ANTI-XA COMPREHENSIVE METABOLIC [id number] 00:47:00 Test Item Value Reference Range Interpretation [...] as normal/abnormal . GFR 154 See_Comment [Automated INDIAN (test mL/min/1.73m\S\2 message] The code = GFRAA) [...] to interpret this result as normal/abnormal . [id number] 00:47:00 Test Item Value Reference Range Interpretation Comments ACETAMINPH (test code = 94M) 3.6 ug/mL 10.0-30.0 L CARDIAC [id number] 00:47:00 Test Item Value Reference Range Interpretation Comments TROPONIN I (test code = A84) <0.015 ng/mL 0.000-0.045 ALCOHOL BLOOD (ETOH)2020-09-26 00:44:00 Test Item Value Reference Range Interpretation Comments ETOH (test code = ETHANOL HALC) The result is to be used only for medical purposes ALCOHOL (test <10 mg/dL See_Comment [Automated me ssage] code = 56A) The system Indexing generated this result transmit gómez reference range : <=10. The refer ence range was not u sed to interpret th is result as normal/abnormal . [id number] 00:42:00 Test Item Value Reference Range Interpretation Comments SALICYLATE (test code = 94B) <1.7 mg/dL 2.8-20.0 L SERUM [id number] 00:38:00 Test Item Value Reference Range Interpretation [...]
[2022-03-04] MEDS ORDERED: ONDANSETRON 4 MG (ODT) TAB ONE (21:31)
--- NOTE | 2022-03-04 22:49 | EDPHYS ---
Physician Documentation [facility] Name: Vanda Pompa Age: 21 yrs Sex: Female : 2000 Arrival Date: 03/04/2022 Time: 21:14 Bed Waiting Private MD: ED Physician Rubén Doss HPI: 03/04 22:42 This 21 yrs old Female presents to ER via EMS with complaints of congestion, loss of kb taste and smell. 22:42 The patient or guardian reports congestion, loss of taste and smell. Onset: The kb symptoms/episode began/occurred 3 day(s) ago. Severity of symptoms: At their worst the symptoms were moderate, in the emergency department the symptoms are unchanged. Modifying factors: The symptoms are alleviated by nothing, the symptoms are aggravated by nothing. Associated signs and symptoms: Pertinent positives: nausea, vomiting. The patient has not experienced similar symptoms in the past. The patient has not recently seen a physician. Patient reports congestion, loss of taste and smell, vomiting for 3 days. 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 - Social history:: Smoking status: Patient denies any tobacco usage or history of. ROS: 23:03 Constitutional: Negative for fever, chills, and weight loss. kb 23:03 ENT: Positive for sinus congestion, loss of taste and smell. 23:03 Abdomen/GI: Positive for nausea and vomiting. 23:03 All other systems are negative. Exam: 23:03 Constitutional: This is a well developed, well nourished patient who is awake, alert, kb and in no acute distress. Head/Face: Normocephalic, atraumatic. ENT: Moist Mucous membranes Cardiovascular: Regular rate and rhythm with a normal S1 and S2. No gallops, murmurs, or rubs. No pulse deficits. Respiratory: Respirations even and unlabored. No increased work of breathing. Talking in full sentences Abdomen/GI: Soft, non-tender. No distention Skin: Warm, dry with normal turgor. Normal color. MS/ Extremity: Pulses equal, no cyanosis. Neurovascular intact. Full, normal range of motion. Neuro: Awake and alert, GCS 15, oriented to person, place, time, and situation. Moves all extremities. Normal gait. Psych: Awake, alert, with orientation to person, place and time. Behavior, mood, and affect are within normal limits. Vital Signs: 21:15 BP 120 / 73; Pulse 70; Resp 18 S; Temp 98.3(O); Pulse Ox 100% on R/A; Weight 54.88 kg as6 (R); Height 5 ft. 3 in. (160.02 cm) (R); Pain 5/10; 22:58 BP 127 / 85; Pulse 71; Resp 18 S; Pulse Ox 100% on R/A; as6 21:15 Body Mass Index 21.43 (54.88 kg, 160.02 cm) as6 MDM: 21:26 Patient medically screened. kb 23:03 Data reviewed: vital signs, nurses notes. Data interpreted: Pulse oximetry: on room air kb is 100 %. Interpretation: normal. Counseling: I had a detailed discussion with the patient and/or guardian regarding: the historical points, exam findings, and any diagnostic results supporting the discharge/admit diagnosis, lab results, the need for outpatient follow up, a family practitioner, to return to the emergency department if symptoms worsen or persist or if there are any questions or concerns that arise at home. 03/04 21:20 Order name: Flu; Complete Time: 22:41 as6 03/04 21:22 Order name: Influenza Screen (A ; Complete Time: 22:20 EDMS 03/04 22:21 Order name: COVID-19 SARS RT PCR (Document "Date of Onset" if Symptomatic) kb Administered Medications: 21:22 Drug: Ondansetron 4 mg Route: PO; as6 22:44 Follow up: Response: No adverse reaction as6 Disposition Summary: 03/04/22 22:48 Discharge Ordered Location: Home kb Condition: Stable kb Diagnosis - Acute upper respiratory infection, unspecified kb Followup: kb - With: Emergency Department - When: As needed - Reason: Worsening of condition Followup: kb - With: Private Physician - When: 2 - 3 days - Reason: Recheck today's complaints, Continuance of care, Re-evaluation by your physician Discharge Instructions: - Discharge Summary Sheet kb - Viral Respiratory Infection, Decy-Xq-Opyr kb Forms: - Medication Reconciliation Form kb - Thank You Letter kb - Antibiotic Education kb - Prescription Opioid Use kb Prescriptions: - Zofran 4 mg Oral Tablet - take 1 tablet by ORAL route every 6 hours As needed; 10 tablet; Refills: 0, kb Product Selection Permitted Addendum: 03/08/2022 16:08 Co-signature as Attending Physician, Rubén Doss MD. r n Signatures: Dispatcher [employer] EDTrudi Galindo, TOBACCO CHECKOUT CLERK-C TOBACCO CHECKOUT CLERK-Ckb Rubén Doss MD MD rn Cyrus Dean RN RN as6
--- NOTE | 2022-03-04 22:49 | ER ---
Nurse's Notes [facility] Name: Vanda Pompa Age: 21 yrs Sex: Female : 2000 Arrival Date: 03/04/2022 Time: 21:14 Bed Waiting Private MD: Diagnosis: Acute upper respiratory infection, unspecified Presentation: 03/04 21:15 Chief complaint: EMS states: called out for COVID symptoms. Chief complaint: Patient as6 states: "I think I have COVID". Coronavirus screen: Client presents with at least one sign or symptom that may indicate coronavirus-19. Ebola Screen: No symptoms or risks identified at this time. Initial Sepsis Screen: Does the patient meet any 2 criteria? No. Patient's initial sepsis screen is negative. Does the patient have a suspected source of infection? No. Patient's initial sepsis screen is negative. Risk Assessment: Do you want to hurt yourself or someone else? Patient reports no desire to harm self or others. Onset of symptoms was March 01, 2022. 21:15 Method Of Arrival: EMS: [facility] as6 21:15 Acuity: FREDY 4 as6 Triage Assessment: 22:50 General: Appears in no apparent distress. Behavior is calm, cooperative. Pain: Denies as6 pain. EENT: Reports nasal congestion. Respiratory: Respiratory effort is even, unlabored. GI: Reports nausea. 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 - Social history:: Smoking status: Patient denies any tobacco usage or history of. Screenin:50 Abuse screen: Denies threats or abuse. Denies injuries from another. Nutritional as6 screening: No deficits noted. Tuberculosis screening: No symptoms or risk factors identified. Fall Risk None identified. Vital Signs: 21:15 BP 120 / 73; Pulse 70; Resp 18 S; Temp 98.3(O); Pulse Ox 100% on R/A; Weight 54.88 kg as6 (R); Height 5 ft. 3 in. (160.02 cm) (R); Pain 5/10; 22:58 BP 127 / 85; Pulse 71; Resp 18 S; Pulse Ox 100% on R/A; as6 21:15 Body Mass Index 21.43 (54.88 kg, 160.02 cm) as6 ED Course: 21:14 Patient arrived in ED. bp1 21:19 Triage completed. as6 21:19 Arm band placed on. as6 21:24 Trudi Thomason FNP-C is [facility]. kb 21:24 Rubén Doss MD is Attending Physician. kb 22:50 Patient has correct armband on for positive identification. as6 22:50 No provider procedures requiring assistance completed. Patient did not have IV access as6 during this emergency room visit. Administered Medications: 21:22 Drug: Ondansetron 4 mg Route: PO; as6 22:44 Follow up: Response: No adverse reaction as6 Medication: 22:50 VIS not applicable for this client. as6 Outcome: 22:48 Discharge ordered by . kb 22:51 Discharged to home ambulatory. as6 22:51 Condition: stable 22:59 Discharge instructions given to patient, Instructed on discharge instructions, follow as6 up and referral plans. medication usage, Demonstrated understanding of instructions, follow-up care, medications, Prescriptions given X 1. 22:59 Patient left the ED. as6 Signatures: Trudi Thomason FNP-C FNP-Ckb Paniauga, Brittany bp1 Slawson, Ashby, RN RN as6
[2022-03-05 01:55] VITALS: TEMP 98.3; O2SAT 100
[2022-03-05 01:58] VITALS: BP 127/85
== END 2022-03-04 22:59 | disposition home or self-care (01) ==
LOC: ER 21:02
DX: J06.9 Acute upper respiratory infection, unspecified (principal); Z20.822 Contact with and (suspected) exposure to COVID-19
CPT/HCPCS: 87804 ×2; 99283; U0003; Q0162

== ENCOUNTER 2022-03-28 22:28 | Emergency (ER) | payer OTHER ==
--- OUTSIDE RECORDS SUMMARY | 2022-03-28 22:33 | XMS REPORT | Continuity of Care Document ---
:2000 Author Organization [facility] t Address [address] [place] [address] Dr. Bliss. [address] [place] [address] Care Team Providers Name Role Phone Hailey Montes MD Primary Care Physician SELF, MIKE Attending Clinician Unavailable Sol Mack MD Attending Clinician Vaccine, Janice Talbert Attending Clinician Unavailable SOL MACK Attending Clinician Unavailable Jaguar Rizzo MD Attending Clinician Doctor Unassigned, Cameron Attending Clinician Unavailable Kitty Crews Attending Clinician Ame Ramirez MD Attending Clinician Maggie Brooks MD Attending Clinician DR ALAINA PARRY Attending Clinician Unavailable DR ALAINA PARRY Admitting Clinician Unavailable Payers Payer Name Policy Type Policy Number Effective Date Expiration Date Chidi nice [facility] MEDICAID STAR [id number] 2021 00:00:00 [facility] [id number] 2016 CHOICE [place] STAR 00:00:00 Problems Condition Condition Condition Status Onset [...] xas disorder disorder 00 Medica l Branch Bipolar Bipolar Disease Active Overview: Univ ers disorder, disorder, 5-19 Formattin i ty of in partial in partial 00:00: g of this [place] remission, remission, 00 note Me dical most most might be Branch 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 Diagnosis per recent hospitali zaiton Abnormal Abnormal Disease Active 2019-07 Unive rs [...] different from the original. 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 [employer] Utility Allergies, Adverse Reactions, Alerts Allergy Allergy Status Severity Reaction(s) Onset Inactive Treating Comm ents Source Name Type Date Date Clinician No Known DA Active U [facility] Drug 07-09 Allergie 00:00: s 00 No Known DA [facility] Allergie 00:00: s 00 Unable DA [facility]: 00 No Known DA Active [facility] s NO KNOWN Drug Active Univers ALLERGIE Class ity of S [facility] Family History Family Member Diagnosis Comments Start Date Stop Date Source Natural brother Psychiatry Universit y of [facility] Natural father Alcohol abuse Univers ity [facility] Natural father Substance abuse Unive rsity of [facility] Natural mother Psychiatry [facility] Social History Social Habit Start Date Stop Date Quantity Comments Source History SDOH University o f Alcohol Comment [place] [facility] Exposure to 2022-03-18 2022-03-28 Not sure [facility] SARS-CoV-2 00:00:00 09:52:00 [place] [facility] (event) Branch Alcohol intake 2022-03-28 2022-03-28 Lifetime University of 00:00:00 00:00:00 non-drinker [facility] (finding) Branch Tobacco use and 2022-01-17 2022-01-17 Smokeless tobacco Un iversity of exposure 00:00:00 00:00:00 non-user [place] [facility] History SDOH 2020-04-20 2020-04-20 1 University o f Alcohol Frequency 00:00:00 00:00:00 [place] M edical Branch History SDOH 2020-04-20 2020-04-20 99 University o f Alcohol Std 00:00:00 00:00:00 [place] [facility] Drinks Branch History [facility] 2020-04-20 2020-04-20 1 [place] o f Alcohol Binge 00:00:00 00:00:00 [place] [facility] Sex Assigned At [birth year] Universit y of 00:00:00 00:00:00 [facility] Smoking Status Start Date Stop Date Source Never smoked tobacco [facility] Medications Ordered Filled Start Stop Current Ordering Indication Dosage Frequency Signature Comments Components Source Medication Medication Date Date Medication? Clinician (SIG) Name Name ARIPiprazol Yes [id number] 300mg 300 mg by Univers e (ABILIFY 9-15 [facility] of [facility]) 00:00: lar route [place] 300 mg sers 00 once every Me dical month. Branch ARIPiprazol Yes 300mg 300 mg by Univers e (ABILIFY 9-15 [facility]y of [facility]) 00:00: lar route [place] 300 mg sers 00 once every Me dical month. Branch ARIPiprazol Yes [id number] 300mg 300 mg by Univers e (ABILIFY 9-15 [facility] ity of [place]) 00:00: lar route [place] 300 mg sers 00 once every Me dical month. Branch ARIPiprazol Yes 300mg 300 mg by Univers e (ABILIFY 9-15 [facility] ity of [facility]) 00:00: lar route [place] 300 mg sers 00 once every Me dical month. Branch ARIPiprazol 2022-0 Yes [id number] 300mg 300 mg by Univers e (ABILIFY 9-15 [facility] ity of [facility]) 00:00: lar route [place] 300 mg sers 00 once every Me dical month. Branch ARIPiprazol Yes 300mg 300 mg by Univers e (ABILIFY 15 [facility] ity of [facility]) 00:00: lar route [place] 300 mg sers 00 once every Me dical month. Branch ARIPiprazol 2021- Yes [id number] 10mg Take 1 U nivers e 10 mg 9-08 10-09 tablet by ity of tablet 00:00: 04:59 mouth in [place] 00 :00 the Medical morning Branch for 30 days. ARIPiprazol 2021- Yes [id number] 10mg Take 1 U nivers e 10 mg 9-08 10-09 tablet by ity of tablet 00:00: 04:59 mouth in [place] 00 :00 the Medical morning Branch for 30 days. ARIPiprazol 2021- Yes [id number] 10mg Take 1 U nivers e 10 mg 9-08 10-09 tablet by ity of tablet 00:00: 04:59 mouth in [place] 00 :00 [facility] morning [place] for 30 days. ARIPiprazol 2021- Yes [id number] 10mg Take 1 U nivers e 10 mg 9-08 10-09 tablet by ity of tablet 00:00: 04:59 mouth in [place] 00 :00 [facility] morning Branch for 30 days. ARIPiprazol 2021- Yes [id number] 10mg Take 1 U nivers e 10 mg 9-08 10-09 tablet by ity of tablet 00:00: 04:59 mouth in [place] 00 :00 [facility] morning [place] for 30 days. ARIPiprazol 2021- Yes [id number] 300mg 300 mg by Univers e (ABILIFY 03-09 [facility] it y of [facility]) 00:00: 05:[address] [place] 300 mg sers 00 :00 once every Me dical month for Branch 90 days. ARIPiprazol 2021- No [id number] 300mg 300 mg by Univers e (ABILIFY 03-09 [facility] it y of [facility]) 00:00: 00:00 [place] 300 mg sers 00 :00 once every Me dical month for Branch 90 days. ARIPiprazol 2021- No [id number] 300mg 300 mg by Univers e (ABILIFY 03-09 [facility] y of [facility]) 00:00: 00:00 [place] 300 mg sers 00 :00 once every Me dical month for Branch 90 days. ARIPiprazol 2021- No [id number] 300mg 300 mg by Univers e (ABILIFY 03-09 [facility] y [facility]) 00:00: 00:00 [place] 300 mg sers 00 :00 once every Me dical month for Branch 90 days. QUEtiapine 2021-2021- No [id number] 50mg Take 1 Un [place] 50 mg 01-17 tablet by ity of tablet 00:00: 00:00 mouth in [place] 00 :00 the Medical morning Branch and 1 tablet in the evening. Do all this for 60 days. QUEtiapine 2021-2021- No [id number] 50mg Take 1 Un [place] 50 mg 01-17 tablet by ity of tablet 00:00: 00:00 mouth in [place] 00 :00 the Medical morning Branch and 1 tablet in the evening. Do all this for 60 days. QUEtiapine 2021-2021- No [id number] 50mg Take 1 Un [place] 50 mg 01-17 tablet by ity of tablet 00:00: 00:00 mouth in [place] 00 :00 the Medical morning Branch and 1 tablet in the evening. Do all this for 60 days. QUEtiapine 2021-2021- No [id number] 50mg Take 1 Un [place] 50 mg 01-17- tablet by ity of tablet 00:00: 00:00 mouth in [place] 00 :00 the Medical morning Branch and 1 tablet in the evening. Do all this for 60 days. lithium 2021-2021- No [id number] 300mg Take 1 U nivers carbonate 12-07 tablet by ity of CR 300 mg 00:00: 04:59 mouth at [place] SR tablet 00 :00 bedtime Medical for 90 Branch days. lithium No [id number] 450mg Take 1 U nivers carbonate 12-07- tablet by ity of CR 450 mg 00:00: 04:59 mouth [place] SR tablet 00 :00 every Medical morning Branch for 90 days. lithium No [id number] 300mg Take 1 U nivers carbonate 12-07 tablet by ity of CR 300 mg 00:00: 04:59 mouth at [place] SR tablet 00 :00 bedtime Medical for 90 Branch days. lithium No [id number] 450mg Take 1 U nivers carbonate 12-07 tablet by ity of CR 450 mg 00:00: 04:59 mouth [place] SR tablet 00 :00 every Medical morning Branch for 90 days. lithium No [id number] 300mg Take 1 U nivers carbonate 12-07 tablet by ity of CR 300 mg 00:00: 04:59 mouth at [place] SR tablet 00 :00 bedtime Medical for 90 Branch days. lithium No [id number] 450mg Take 1 U nivers carbonate 12-07 tablet by ity of CR 450 mg 00:00: 04:59 mouth [place] SR tablet 00 :00 every Medical morning Branch for 90 days. lithium No [id number] 300mg Take 1 U nivers carbonate 12-07- tablet by ity of CR 300 mg 00:00: 04:59 mouth at [place] SR tablet 00 :00 bedtime Medical for 90 Branch days. lithium No [id number] 450mg Take 1 U nivers carbonate 12-07 tablet by ity of CR 450 mg 00:00: 04:59 mouth [place] SR tablet 00 :00 every Medical morning Branch for 90 days. miSOPROStoL Yes [id number] 200ug Take 1 Univers 200 mcg 4-29 tablet by ity of tablet 00:00: mouth [place] 00 SEE-INSTRU Medical CTIONS. Branch Take one tab the night before and one tab the morning of procedure miSOPROStoL Yes [id number] 200ug Take 1 Univers 200 mcg 4-29 tablet by ity of tablet 00:00: mouth SEE-INSTRU Medical CTIONS. Branch Take one tab the night before and one tab the morning of procedure miSOPROStoL Yes [id number] 200ug Take 1 Univers 200 mcg 4-29 tablet by ity of tablet 00:00: mouth SEE-INSTR Medical CTIONS. Branch Take one tab the night before and one tab the morning of procedure miSOPROStoL Yes [id number] 200ug Take 1 Univers 200 mcg 4-29 tablet by ity of tablet 00:00: mouth [place] SEE-INSTR Medical CTIONS. Branch Take one tab the night before and one tab the morning of procedure miSOPROStoL Yes [id number] 200ug Take 1 Univers 200 mcg 4-29 tablet by ity of tablet 00:00: mouth [place] SEE-[facility] Medical CTIONS. Branch Take one tab the night before and one tab the morning of procedure Immunizations Ordered Immunization Filled Immunization Date Status Commen ts Source Name Name SARS-COV-2 COVID-19 2022-03-17 Completed Unive rsity of MIKE-SUCROSE VACCINE 00:00:00 [facility] 12 YRS+, BIVALENT Branch 0.3ML, IM, (PFIZER ARITA TOP BOOSTER) SARS-COV-2 COVID-19 2022-03-17 Completed Unive rsity of MIKE-SUCROSE VACCINE 00:00:00 [facility] 12 YRS+, BIVALENT Branch 0.3ML, IM, (PFIZER ARITA TOP BOOSTER) SARS-COV-2 COVID-19 2022-03-17 Completed Unive rsity of MIKE-SUCROSE VACCINE 00:00:00 [facility] 12 YRS+, BIVALENT Branch 0.3ML, IM, (PFIZER ARITA TOP BOOSTER) SARS-COV-2 COVID-19 2022-03-17 Completed Unive rsity of MIKE-SUCROSE VACCINE 00:00:00 [facility] 12 YRS+, BIVALENT Branch 0.3ML, IM, (PFIZER ARITA TOP BOOSTER) SARS-COV-2 COVID-19 2021-06-24 Completed Unive rsity of PFIZER VACCINE 00:00:00 [facility] [place] Branch SARS-COV-2 COVID-19 2021-06-24 Completed Unive rsity of PFIZER VACCINE 00:00:00 [facility] [place] Branch SARS-COV-2 COVID-19 2021-06-24 Completed Unive rsity of PFIZER VACCINE 00:00:00 [facility] SARS-COV-2 COVID-19 2021-06-24 Completed Unive rsity of PFIZER VACCINE 00:00:00 [facility] SARS-COV-2 COVID-19 2021-06-24 Completed Unive rsity of PFIZER VACCINE 00:00:00 [facility] SARS-COV-2 COVID-19 2020-11-21 Completed Unive rsity of PFIZER VACCINE 00:00:00 [facility] SARS-COV-2 COVID-19 2020-11-21 Completed Unive rsity of PFIZER VACCINE 00:00:00 [facility] SARS-COV-2 COVID-19 2020-11-21 Completed Unive rsity of PFIZER VACCINE 00:00:00 [facility] SARS-COV-2 COVID-19 2020-11-21 Completed Unive rsity of PFIZER VACCINE 00:00:00 [facility] SARS-COV-2 COVID-19 2020-11-21 Completed Unive rsity of PFIZER VACCINE 00:00:00 [facility] SARS-COV-2 COVID-19 2020-10-24 Completed Unive rsity of PFIZER VACCINE 00:00:00 [facility] SARS-COV-2 COVID-19 2020-10-24 Completed Unive rsity of PFIZER VACCINE 00:00:00 [facility] SARS-COV-2 COVID-19 2020-10-24 Completed Unive rsity of PFIZER VACCINE 00:00:00 [facility] SARS-COV-2 COVID-19 2020-10-24 Completed Unive rsity of PFIZER VACCINE 00:00:00 [facility] SARS-COV-2 COVID-19 2020-10-24 Completed Unive rsity of PFIZER VACCINE 00:00:00 [facility] Influenza Virus 2020-07-08 Completed Universit y [...] 2018-10-31 Completed Univ ersity of 00:00:00 [facility] Meningococcal B, OMV 2018-10-31 Completed Univ ersity of 00:00:00 [facility] Meningococcal B, OMV 2018-10-31 Completed Univ ersity of 00:00:00 [facility] Meningococcal B, OMV 2018-10-31 Completed Univ ersity of 00:00:00 [facility] Meningococcal B, OMV 2018-10-31 Completed Univ ersity of 00:00:00 [facility] Influenza Virus 2018-08-29 Completed Universit y of Vaccine Quad .5 mL IM 00:00:00 [place] Medical 6+ MO Branch Meningococcal B, OMV 2018-08-29 Completed Univ ersity of 00:00:00 [facility] Influenza Virus 2018-08-29 Completed Universit y of Vaccine Quad .5 mL IM 00:00:00 [place] [facility] 6+ MO Branch Meningococcal B, OMV 2018-08-29 Completed Univ ersity of 00:00:00 [facility] Influenza Virus 2018-08-29 Completed Universit y of Vaccine Quad .5 mL IM 00:00:00 [place] [facility] 6+ MO Branch Meningococcal B, OMV 2018-08-29 Completed Univ ersity of 00:00:00 [facility] Influenza Virus 2018-08-29 Completed Universit y of Vaccine Quad .5 mL IM 00:00:00 [place] [facility] 6+ MO Branch Meningococcal B, OMV 2018-08-29 Completed Univ ersity of 00:00:00 [facility] Influenza Virus 2018-08-29 Completed Universit y of Vaccine Quad .5 mL IM 00:00:00 [place] [facility] 6+ MO Branch Meningococcal B, OMV 2018-08-29 Completed Univ ersity of 00:00:00 [facility] Meningococcal 2018-01-17 Completed University of Polysaccharide 00:00:00 [place] Medi torito (groups A, C, Y and Branc h W-135) conjugate vaccine (MCV4P) Meningococcal 2018-01-17 Completed University of Polysaccharide 00:00:00 [place] [facility]ito (groups A, C, Y and Branc h W-135) conjugate vaccine (MCV4P) Meningococcal 2018-01-17 Completed University of Polysaccharide 00:00:00 [place] Medi torito (groups A, C, Y and Branc h W-135) conjugate vaccine (MCV4P) Meningococcal 2018-01-17 Completed University of Polysaccharide 00:00:00 [place] Medi torito (groups A, C, Y and Branc h W-135) conjugate vaccine (MCV4P) Meningococcal 2018-01-17 Completed University of Polysaccharide 00:00:00 [place] Medi torito (groups A, C, Y and Branc h W-135) conjugate vaccine (MCV4P) Influenza Virus 2017-04-12 Completed Universit y of Vaccine Quad IM 3+ 00:00:00 [facility] Influenza Virus 2017-04-12 Completed Universit y of Vaccine Quad IM 3+ 00:00:00 [facility] Influenza Virus 2017-04-12 Completed Universit y of Vaccine Quad IM 3+ 00:00:00 [facility] Influenza Virus 2017-04-12 Completed Universit y of Vaccine Quad IM 3+ 00:00:00 [facility] Influenza Virus 2017-04-12 Completed Universit y of Vaccine Quad IM 3+ 00:00:00 [facility] HPV9 2017-02-01 Completed University of 00:00:00 [facility] HPV9 2017-02-01 Completed University of 00:00:00 [facility] HPV9 2017-02-01 Completed University of 00:00:00 [facility] HPV9 2017-02-01 Completed University of 00:00:00 [facility] HPV9 2017-02-01 Completed University of 00:00:00 [facility] HPV 2016-01-20 Completed University of 00:00:00 [facility] HPV 2016-01-20 Completed University of 00:00:00 [facility] HPV 2016-01-20 Completed University of 00:00:00 [facility] HPV 2016-01-20 Completed University of 00:00:00 [facility] HPV 2016-01-20 Completed University of 00:00:00 [facility] Influenza Virus 2015-07-08 Completed Universit y of Vaccine Quad IM 3+ 00:00:00 [facility] HPV9 2015-07-08 Completed University of 00:00:00 [facility] Influenza Virus 2015-07-08 Completed Universit y of Vaccine Quad IM 3+ 00:00:00 [facility] HPV9 2015-07-08 Completed University of 00:00:00 [facility] Influenza Virus 2015-07-08 Completed Universit y of Vaccine Quad IM 3+ 00:00:00 [facility] HPV9 2015-07-08 Completed University of 00:00:00 [facility] Influenza Virus 2015-07-08 Completed Universit y of Vaccine Quad IM 3+ 00:00:00 [facility] HPV9 2015-07-08 Completed University of 00:00:00 [facility] Influenza Virus 2015-07-08 Completed Universit y of Vaccine Quad IM 3+ 00:00:00 [facility] HPV9 2015-07-08 Completed University of 00:00:00 [facility] Influenza Virus 2014-04-02 Completed Universit y of Vaccine (3+ yrs) 00:00:00 [facility] Influenza Virus 2014-04-02 Completed Universit y of Vaccine (3+ yrs) 00:00:00 [facility] Influenza Virus 2014-04-02 Completed Universit y of Vaccine (3+ yrs) 00:00:00 [facility] Influenza Virus 2014-04-02 Completed Universit y of Vaccine (3+ yrs) 00:00:00 [facility] Influenza Virus 2014-04-02 Completed Universit y of Vaccine (3+ yrs) 00:00:00 [facility] Influenza Virus 2013-05-22 Completed Universit y of Vaccine (3+ yrs) 00:00:00 [facility] Meningococcal 2013-05-22 Completed University of Polysaccharide 00:00:00 [place] [facility] torito (groups A, C, Y and Branc h W-135) conjugate vaccine (MCV4P) TDAP 2013-05-22 Completed University of 00:00:00 [facility] Influenza Virus 2013-05-22 Completed Universit y of Vaccine (3+ yrs) 00:00:00 [facility] Meningococcal 2013-05-22 Completed University of Polysaccharide 00:00:00 [place] Medi torito (groups A, C, Y and Branc h W-135) conjugate vaccine (MCV4P) TDAP 2013-05-22 Completed University of 00:00:00 [facility] Influenza Virus 2013-05-22 Completed Universit y of Vaccine (3+ yrs) 00:00:00 [facility] Meningococcal 2013-05-22 Completed University of Polysaccharide 00:00:00 [place] Medi torito (groups A, C, Y and Branc h W-135) conjugate vaccine (MCV4P) TDAP 2013-05-22 Completed University of 00:00:00 [facility] Influenza Virus 2013-05-22 Completed Universit y of Vaccine (3+ yrs) 00:00:00 [facility] Meningococcal 2013-05-22 Completed University of Polysaccharide 00:00:00 [place] Medi torito (groups A, C, Y and Branc h W-135) conjugate vaccine (MCV4P) TDAP 2013-05-22 Completed University of 00:00:00 [facility] Influenza Virus 2013-05-22 Completed Universit y of Vaccine (3+ yrs) 00:00:00 [facility] Meningococcal 2013-05-22 Completed University of Polysaccharide 00:00:00 [place] Medi torito (groups A, C, Y and Branc h W-135) conjugate vaccine (MCV4P) TDAP 2013-05-22 Completed University of 00:00:00 [facility] Influenza Virus 2012-06-13 Completed Universit y of Vaccine 00:00:00 [facility] Influenza Virus 2012-06-13 Completed Universit y of Vaccine 00:00:00 [facility] Influenza Virus 2012-06-13 Completed Universit y of Vaccine 00:00:00 [facility] Influenza Virus 2012-06-13 Completed Universit y of Vaccine 00:00:00 [facility] Influenza Virus 2012-06-13 Completed Universit y of Vaccine 00:00:00 [facility] Influenza Virus 2011-05-18 Completed Universit y of Vaccine 00:00:00 [facility] Influenza Virus 2011-05-18 Completed Universit y of Vaccine 00:00:00 [facility] Influenza Virus 2011-05-18 Completed Universit y of Vaccine 00:00:00 [facility] Influenza Virus 2011-05-18 Completed Universit y of Vaccine 00:00:00 [facility] Influenza Virus 2011-05-18 Completed Universit y of Vaccine 00:00:00 [facility] Influenza Virus 2010-05-26 Completed Universit y of Vaccine 00:00:00 [facility] Influenza Virus 2010-05-26 Completed Universit y of Vaccine 00:00:00 [facility] Influenza Virus 2010-05-26 Completed Universit y of Vaccine 00:00:00 [facility] Influenza Virus 2010-05-26 Completed Universit y of Vaccine 00:00:00 [facility] Influenza Virus 2010-05-26 Completed Universit y of Vaccine 00:00:00 [facility] Influenza Virus 2009-06-23 Completed Universit y of Vaccine 00:00:00 [facility] Influenza Virus 2009-06-23 Completed Universit y of Vaccine 00:00:00 [facility] Influenza Virus 2009-06-23 Completed Universit y of Vaccine 00:00:00 [facility] Influenza Virus 2009-06-23 Completed Universit y of Vaccine 00:00:00 [facility] Influenza Virus 2009-06-23 Completed Universit y of Vaccine 00:00:00 [facility] Influenza Virus 2009-05-20 Completed Universit y of Vaccine 00:00:00 [facility] Influenza Virus 2009-05-20 Completed Universit y of Vaccine 00:00:00 [facility] Influenza Virus 2009-05-20 Completed Universit y of Vaccine 00:00:00 [facility] Influenza Virus 2009-05-20 Completed Universit y of Vaccine 00:00:00 [facility] Influenza Virus 2009-05-20 Completed Universit y of Vaccine 00:00:00 [facility] Influenza Virus 2007-06-01 Completed Universit y of Vaccine 00:00:00 [facility] Influenza Virus 2007-06-01 Completed Universit y of Vaccine 00:00:00 [facility] Influenza Virus 2007-06-01 Completed Universit y of Vaccine 00:00:00 [facility] Influenza Virus 2007-06-01 Completed Universit y of Vaccine 00:00:00 [facility] Influenza Virus 2007-06-01 Completed Universit y of Vaccine 00:00:00 [facility] DTAP 2006-05-24 Completed University of 00:00:00 [facility] Proquad 2006-05-24 Completed University of (MMR/VARICELLA) 00:00:00 [facility] [place] [facility] Polio (IPV/OPV) 2006-05-24 Completed Universit y of 00:00:00 [facility] DTAP 2006-05-24 Completed University of 00:00:00 [facility] Proquad 2006-05-24 Completed University of (MMR/VARICELLA) 00:00:00 [facility] [place] [facility] Polio (IPV/OPV) 2006-05-24 Completed Universit y of 00:00:00 [facility] DTAP 2006-05-24 Completed [facility] 00:00:00 [facility] [facility] Proquad 2006-05-24 Completed University of (MMR/VARICELLA) 00:00:00 [facility] Polio (IPV/OPV) 2006-05-24 Completed Universit y of 00:00:00 [facility] DTAP 2006-05-24 Completed University of 00:00:00 [facility] Proquad 2006-05-24 Completed University of (MMR/VARICELLA) 00:00:00 [facility] Polio (IPV/OPV) 2006-05-24 Completed Universit y of 00:00:00 [facility] DTAP 2006-05-24 Completed University of 00:00:00 [facility] Proquad 2006-05-24 Completed University of (MMR/VARICELLA) 00:00:00 [facility] Polio (IPV/OPV) 2006-05-24 Completed Universit y of 00:00:00 [facility] HEPATITIS A 2005-05-19 Completed University of 00:00:00 [facility] Influenza Virus 2005-05-19 Completed Universit y of Vaccine 00:00:00 [facility] HEPATITIS A 2005-05-19 Completed University of 00:00:00 [facility] Influenza Virus 2005-05-19 Completed Universit y of Vaccine 00:00:00 [facility] HEPATITIS A 2005-05-19 Completed University of 00:00:00 [facility] Influenza Virus 2005-05-19 Completed Universit y of Vaccine 00:00:00 [facility] HEPATITIS A 2005-05-19 Completed University of 00:00:00 [facility] Influenza Virus 2005-05-19 Completed Universit y of Vaccine 00:00:00 [facility] HEPATITIS A 2005-05-19 Completed University of 00:00:00 [facility] Influenza Virus 2005-05-19 Completed Universit y of Vaccine 00:00:00 [facility] HEPATITIS A 2004-05-17 Completed University of 00:00:00 [facility] HEPATITIS A 2004-05-17 Completed University of 00:00:00 [facility] HEPATITIS A 2004-05-17 Completed University of 00:00:00 [facility] HEPATITIS A 2004-05-17 Completed University of 00:00:00 [facility] HEPATITIS A 2004-05-17 Completed University of 00:00:00 [facility] Polio (IPV/OPV) 2003-08-21 Completed Universit y of 00:00:00 [facility] Polio (IPV/OPV) 2003-08-21 Completed Universit y of 00:00:00 [facility] Polio (IPV/OPV) 2003-08-21 Completed Universit y of 00:00:00 [facility] Polio (IPV/OPV) 2003-08-21 Completed Universit y of 00:00:00 [facility] HIB 4 Dose Schedule 2003-05-22 Completed Unive rsity of 00:00:00 [facility] MMR 2003-05-22 Completed University of 00:00:00 [facility] Pneumococcal 7 2003-05-22 Completed University of Conjugate, PCV7 00:00:00 [place] [facility] (Prevnar7) [facility] Varicella 2003-05-22 Completed University of (varivax)(chicken 00:00:00 [place] [facility] pox) [facility] HIB 4 Dose Schedule 2003-05-22 Completed Unive rsity of 00:00:00 [facility] MMR 2003-05-22 Completed University of 00:00:00 [facility] Pneumococcal 7 2003-05-22 Completed University of Conjugate, PCV7 00:00:00 [place] [facility] (Prevnar7) [facility] Varicella 2003-05-22 Completed University of (varivax)(chicken 00:00:00 [place] [facility] pox) [facility] HIB 4 Dose Schedule 2003-05-22 Completed Unive rsity of 00:00:00 [facility] MMR 2003-05-22 Completed University of 00:00:00 [facility] Pneumococcal 7 2003-05-22 Completed University of Conjugate, PCV7 00:00:00 [place] [facility] (Prevnar7) Branch Varicella 2003-05-22 Completed University of (varivax)(chicken 00:00:00 [place] [facility] pox) [facility] HIB 4 Dose Schedule 2003-05-22 Completed Unive rsity of 00:00:00 [facility] MMR 2003-05-22 Completed University of 00:00:00 [facility] Pneumococcal 7 2003-05-22 Completed University of Conjugate, PCV7 00:00:00 [place] [facility] (Prevnar7) Branch Varicella 2003-05-22 Completed University of (varivax)(chicken 00:00:00 [place] [facility] pox) [facility] DTAP 2003-01-01 Completed University of 00:00:00 [facility] HIB 4 Dose Schedule 2003-01-01 Completed Unive rsity of 00:00:00 [facility] Hep B, Adol or Pedi 2003-01-01 Completed Unive rsity of Dosage 00:00:00 [facility] Pneumococcal 7 2003-01-01 Completed University of Conjugate, PCV7 00:00:00 [place] [facility] (Prevnar7) Branch DTAP 2003-01-01 Completed University of 00:00:00 [facility] HIB 4 Dose Schedule 2003-01-01 Completed Unive rsity of 00:00:00 [facility] Hep B, Adol or Pedi 2003-01-01 Completed Unive rsity of Dosage 00:00:00 [facility] Pneumococcal 7 2003-01-01 Completed University of Conjugate, PCV7 00:00:00 [place] [facility] (Prevnar7) [facility] DTAP 2003-01-01 Completed University of 00:00:00 [facility] HIB 4 Dose Schedule 2003-01-01 Completed Unive rsity of 00:00:00 [facility] Hep B, Adol or Pedi 2003-01-01 Completed Unive rsity of Dosage 00:00:00 [facility] Pneumococcal 7 2003-01-01 Completed University of Conjugate, PCV7 00:00:00 [place] [facility] (Prevnar7) Branch DTAP 2003-01-01 Completed University of 00:00:00 [facility] HIB 4 Dose Schedule 2003-01-01 Completed Unive rsity of 00:00:00 [facility] Hep B, Adol or Pedi 2003-01-01 Completed Unive rsity of Dosage 00:00:00 [facility] Pneumococcal 7 2003-01-01 Completed University of Conjugate, PCV7 00:00:00 [place] [facility] (Prevnar7) Branch DTAP 2002 Completed University of 00:00:00 [facility] HIB 4 Dose Schedule 2002 Completed Unive rsity of 00:00:00 [facility] Pneumococcal 7 2002 Completed University of Conjugate, PCV7 00:00:00 [place] [facility] (Prevnar7) Branch Polio (IPV/OPV) 2002 Completed Universit y of 00:00:00 [facility] DTAP 2002 Completed University of 00:00:00 [facility] HIB 4 Dose Schedule 2002 Completed Unive rsity of 00:00:00 [facility] Pneumococcal 7 2002 Completed University of Conjugate, PCV7 00:00:00 [place] [facility] (Prevnar7) Branch Polio (IPV/OPV) 2002 Completed Universit y of 00:00:00 [facility] DTAP 2002 Completed University of 00:00:00 [facility] HIB 4 Dose Schedule 2002 Completed Unive rsity of 00:00:00 [facility] Pneumococcal 7 2002 Completed University of Conjugate, PCV7 00:00:00 [facility] ical (Prevnar7) Branch Polio (IPV/OPV) 2002 Completed Universit y of 00:00:00 [facility] DTAP 2002 Completed University of 00:00:00 [facility] HIB 4 Dose Schedule 2002 Completed Unive rsity of 00:00:00 [facility] Pneumococcal 7 2002 Completed University of Conjugate, PCV7 00:00:00 [facility] ical (Prevnar7) Branch Polio (IPV/OPV) 2002 Completed Universit y of 00:00:00 [facility] DTAP 2002 Completed University of 00:00:00 [facility] HIB 4 Dose Schedule 2002 Completed Unive rsity of 00:00:00 [facility] Hep B, Adol or Pedi 2002 Completed Unive rsity of Dosage 00:00:00 [facility] Polio (IPV/OPV) 2002 Completed Universit y of 00:00:00 [facility] DTAP 2002 Completed University of 00:00:00 [facility] HIB 4 Dose Schedule 2002 Completed Unive rsity of 00:00:00 [facility] Hep B, Adol or Pedi 2002 Completed Unive rsity of Dosage 00:00:00 [facility] Polio (IPV/OPV) 2002 Completed Universit y of 00:00:00 [facility] DTAP 2002 Completed University of 00:00:00 [facility] HIB 4 Dose Schedule 2002 Completed Unive rsity of 00:00:00 [facility] Hep B, Adol or Pedi 2002 Completed Unive rsity of Dosage 00:00:00 [facility] Polio (IPV/OPV) 2002 Completed Universit y of 00:00:00 [facility] DTAP 2002 Completed University of 00:00:00 [facility] HIB 4 Dose Schedule 2002 Completed Unive rsity of 00:00:00 [facility] Hep B, Adol or Pedi 2002 Completed Unive rsity of Dosage 00:00:00 [facility] Polio (IPV/OPV) 2002 Completed Universit y of 00:00:00 [facility] Hep B, Adol or Pedi 2002 Completed Unive rsity of Dosage 00:00:00 [facility] Hep B, Adol or Pedi 2002 Completed Unive rsity of Dosage 00:00:00 [facility] Hep B, Adol or Pedi 2002 Completed Unive rsity of Dosage 00:00:00 [facility] Hep B, Adol or Pedi 2002 Completed Unive rsity of Dosage 00:00:00 [facility] Hep B, Adol or Pedi 2002 Completed Unive rsity of Dosage 00:00:00 [facility] Vital Signs Vital Name Observation Time Observation Value Comments Source Height 2020-09-25 23:56:00 165.1 CM Weight 2020-09-25 23:56:00 2.69 KG Systolic blood 2022-03-28 14:54:00 116 mm[Hg] Univer sity of pressure [facility] Diastolic blood 2022-03-28 14:54:00 87 mm[Hg] Unive rsity of pressure [facility] Heart rate 2022-03-28 14:54:00 113 /min [facility] Respiratory rate 2022-03-28 14:54:00 18 /min Univ ersity of [facility] Body height 2022-03-28 14:54:00 160 cm Universi ty [facility] Body weight 2022-03-28 14:54:00 51.71 kg Universi ty [facility] BMI 2022-03-28 14:54:00 20.19 kg/m2 [facility] Body temperature 2022-02-24 18:37:00 37 [facility] Body weight 2022-02-24 18:37:00 51.801 kg [facility] BMI 2022-02-24 18:37:00 20.23 kg/m2 [facility] Systolic blood 2022-02-21 12:51:00 133 mm[Hg] [facility] pressure [facility] Diastolic blood 2022-02-21 12:51:00 49 mm[Hg] [facility] [place] Heart rate 2022-02-21 12:51:00 108 /min [facility] Respiratory rate 2022-02-21 12:51:00 18 /min [facility] Body height 2022-02-21 12:51:00 160 cm [facility] Oxygen saturation in 2022-01-24 00:45:00 98 /min [facility] Arterial blood by [facility] Pulse oximetry Branch Head 2009-07-13 18:51:00 51 cm [facility] Occipital-frontal [facility] [place] circumference by [place] Branch measure Procedures Procedure Date / Time Performing Clinician Source Performed SARS-COV-2 COVID-19 2022-03-17 16:49:14 Doctor Parra [facility] MIKE-SUCROSE VACCINE 12 [facility] YRS+, BIVALENT 0.3ML, IM, (PFIZER ARITA TOP BOOSTER) SARS-COV-2 COVID-19 2022-03-17 16:49:14 Doctor Fidel [facility] MIKE-SUCROSE VACCINE 12 [facility] YRS+, BIVALENT 0.3ML, IM, (PFIZER ARITA TOP BOOSTER) XR PELVIS 3+ VW 2022-02-24 18:13:00 Jaguar Rizzo o f [facility] EXTERNAL PROVIDER RECORDS 2022-02-22 05:01:00 Doctor Parra [facility] [place] EMERGENCY SERVICES 2022-01-23 05:01:00 Doctor Parra [facility] AGREEMENTS AND [facility] AUTHORIZATIONS EMERGENCY DEPARTMENT 2022-01-23 05:01:00 Doctor Parra [facility] DOCUMENTS [facility] Encounters Start End Encounter Admission Attending Care Care Encounter Source Date/Time Date/Time Type Type Clinicians Facility Department ID 2021-11-02 Outpatient [facility] [id number] [place] 11:00:33 [id number] [facility] 2021-07-09 Inpatient [facility] [id number] [facility] 12:46:00 14 2021-05-25 Inpatient [facility] [id number] [facility] 23:19:00 94 2022-03-28 2022-03-28 Outpatient R REYNALDO [facility] [id number] Univers 10:15:00 12:05:24 MIKE ity o f [facility] 2022-03-28 2022-03-28 Travel 1.2.840.1 1.2.378.793 [id number] Univers 00:00:00 00:00:00 63551.1.1 350.1.13.10 ity of 3.104.2.7 [place].7.3.698 [place].585536 084.8 Medica l .[address] [place] [address] 2022-03-17 2022-03-17 Imm/Inj Sol Mack P 1.2.840.1 [id number] Univers 11:30:00 12:25:54 Visit Janice Orosco 33124.1.1 ity of 3.104.2.7 [place] .3.341484 Medica l .[address] [place] [address] 2022-03-17 2022-03-17 [facility] [id number] Univers 11:30:00 11:30:00 SOL ity of [facility] 2022-03-17 2022-03-17 Outpatient R [facility] [id number] Univers 11:30:00 11:30:00 [id number] ity of [facility] 2022-03-17 2022-03-17 Travel 1.2.840.1 1.2.946.325 [id number] Univers 00:00:00 00:00:00 99155.1.1 350.1.13.10 ity of 3.104.2.7 4.[place].7.3.698 [place] .3.416667 084.8 Medica l .8 Branch 2022-02-24 2022-02-24 [facility], 1.2.840.1 [id number] [facility] 13:02:19 23:59:00 Encounter Jaguar 87121.1.1 it y of 3.104.2.7 [place] .3.731375 Medica l .8 Branch 2022-02-24 2022-02-24 [facility], 1.2.840.9 [id number] [facility] 13:00:00 14:33:28 Visit Jaguar 85714.1.1 ity of 3.104.2.7 [place] .3.716666 Medica l .8 Branch 2022-02-24 2022-02-24 Travel 1.2.840.1 1.2.177.188 [id number] Univers 00:00:00 00:00:00 47595.1.1 350.1.13.10 ity of 3.104.2.7 4.2.7.3.698 [place] .3.313682 084.8 Medica l .8 Branch 2022-02-22 2022-02-22 Orders Doctor 1.2.840.8 [id number] Univers 00:00:00 00:00:00 Only Unassigned, 99063.1.1 ity of [place] 3.104.2.7 [place] .3.204348 Medica l .8 Branch 2022-02-21 2022-02-21 Travel 1.2.840.1 1.2.100.665 [id number] Univers 00:00:00 00:00:00 33377.1.1 350.1.13.10 ity of 3.104.2.7 4.2.7.3.698 [place] .3.291187 084.8 Medica l .8 Branch 2022-01-23 2022-01-23 Emergency Kitty Kessler 1.2.840.8 [id number] Univers 19:42:00 21:04:00 Bree 81453.1.1 ity of 3.104.2.7 [place] .3.395950 Medica l .8 Branch 2022-01-23 2022-01-23 Travel 1.2.840.1 1.2.247.907 [id number] Univers 00:00:00 00:00:00 41148.1.1 350.1.13.10 ity of 3.104.2.7 4.2.7.3.698 [place] .3.186843 084.8 Medica l .8 Branch 2022-01-17 2022-01-17 Travel 1.2.840.1 1.2.173.069 [id number] Univers 00:00:00 00:00:00 80666.1.1 350.1.13.10 ity of 3.104.2.7 4.2.7.3.698 [place] .3.449655 084.8 Medica l .8 [place] 2021-12-31 2021-12-31 Office FishAme 1.2.840.8 [id number] [facility] 16:00:00 17:22:54 Visit Maggie Brooks 26696.1.1 ity of 3.104.2.7 [place] .3.145511 Medica l .8 Branch 2021-12-31 2021-12-31 Travel 1.2.840.1 1.2.386.594 [id number] Univers 00:00:00 00:00:00 42951.1.1 350.1.13.10 ity of 3.104.2.7 4.2.7.3.698 [place] .3.433830 084.8 Medica l .8 [place] 2021-12-20 2021-12-20 Travel 1.2.840.1 1.2.556.585 [id number] Univers 00:00:00 00:00:00 23617.1.1 350.1.13.10 ity of 3.104.2.7 4.2.7.3.698 [place] .3.750584 084.8 Medica l .8 [place] 2021-07-09 2021-07-09 Emergency [facility] [id number] [facility] 12:46:00 12:46:00 14 2021-05-25 2021-05-25 Emergency [facility] [id number] [facility] 23:19:00 23:19:00 94 2020-09-25 2020-09-26 Emergency Suzi PARRY [facility] ECC [id number] [place] 23:49:00 10:04:00 [facility] Results Test Description Test Time Test Comments Results Result Comments Source Coronavirus NAAT, COVD19 2021-07-09 14:05:00 Test Item Value Reference Range Interpretation Comme nts Coronavirus NAAT, COVD19 (test code = SARS results, including Patie nt Name, [id number]) or MRN, were Coronavirus NAAT, COVD19 (test code = ical-devices/abvikjulg-mpf-fi thorizat [id number]) ions. SARS-CoV-2 NAAT Result: (test code = Positive by RT-PCR A SARS-CoV-2 NAAT Result:) COVID-19 Status: AsymptomaticHCG, Urine Qual (LAB)2021-07-09 14:05:00 Test Item Value Reference Range Interpretation Comments HCG, Urine, Qual (test code = HCGU) Negative Negative Drug Screen,[id number] 14:05:00 Test Item Value Reference Range Interpretation [...] Negative code = UPROP) UA, Urinalysis w [id number] 14:05:00 Test Item Value Reference Range Interpretation Comments Color,Urine (test code = Yellow Yellow UCOL) Clarity,Urine (test code = Clear Clear UCLAR) Ph, Urine (test code = UPH) 8.5 5.0-8.0 H Specific [place],Urine 1.020 1.005-1.030 N (test code = USG) [...] Seen A UBACT) Complete Blood Count Auto [id number] 13:20:00 Test Item Value Reference Range Interpretation [...] code = NRBCP) 0 % Comprehensive Metabolic [id number] 13:20:00 Test Item Value Reference Range Interpretation [...] 72 U/L 46-116 N = ALP) Ethanol [id number] 13:20:00 Test Item Value Reference Range Interpretation [...] = HCGU) Negative Negative UA, Urinalysis Rflx Cult/[id number] 00:20:00 Test Item Value Reference Range Interpretation Comments Color,Urine (test code = Yellow Yellow UCOL) Clarity,Urine (test code = Clear Clear UCLAR) PH,Urine (test code = 7.5 5.5-8.5 UPH.XX) Specific [place],Urine 1.020 1.005-1.030 N (test code = USG) [...] cells/uL Negative (test code = ULEU) Urine [id number] 00:20:00 Test Item Value Reference Range Interpretation Comments RBC,Urine (test code = URBC.XX) 0-5 /HPF None Seen WBC,Urine (test code = UWBC.XX) 6-10 /HPF None Seen A Squamous Epithelial Cell,Urine 74-200 /HPF None Seen A (test code = USQEPI.XX) Bacteria,Urine (test code = Moderate /HPF None Seen A UBACT) Drug Screen,[id number] 00:20:00 Test Item Value Reference Range Interpretation [...] code = UPROP) Complete Blood Count Auto [id number] 00:09:00 Test Item Value Reference Range Interpretation [...] code = NRBCP) 0 % Comprehensive Metabolic [id number] 00:09:00 Test Item Value Reference Range Interpretation [...] 83 U/L 46-116 N = ALP) Ethanol [id number] 00:09:00 Test Item Value Reference Range Interpretation Comments Ethanol (test code < 3 mg/dL The pharm acological = ETOH) response to blo od alcohol levels mayvary from individual to i ndividual. The fatal ezio ntrationhas been reported t o be >400mg/dL. Coronavirus PCR, COVID19 [id number] 00:08:00 Test Item Value Reference Range Interpretation Comments Coronavirus PCR, For use under Emergency COVID19 Rapid (test Use Authorization (EUA) code = SARSCOV2) only. Coronavirus PCR, Reference Range: COVID19 Rapid (test Negative code = EXTJMQA91.1) SARS-CoV-2 PCR Result: Negative by RT-PCR (test code = SARS-CoV-2 PCR Result:) COVID-19 Status: AsymptomaticCARBAMAZEPHINE (TEGRETOL)2020-09-26 08:42:00 Test Item Value Reference Range Interpretation Comments CARBAMAZPN (test code = 98A) 19.3 ug/mL 4.0-12.0 HH CARBAMAZEPHINE (TEGRETOL)2020-09-26 05:04:00 Test Item Value Reference Range Interpretation Comments CARBAMAZPN (test code = 98A) 20.1 ug/mL 4.0-12.0 HH URINALYSIS WITH [id number] 02:45:00 Test Item Value Reference Range Interpretation [...] code = USPERM) /HPF NONE DRUGS OF [id number] 02:43:00 Test Item Value Reference Range Interpretation [...] the FDA and the [employer] [place] (CAP) are more stringent than those required for this test. Therefore, the result should be interpreted with caution and close attention to other clinical and epidemiological data PRO TIME AND [id number] 00:51:00 Test Item Value Reference Range Interpretation [...] Heparin. Order Code is ANTI-XA COMPREHENSIVE METABOLIC [id number] 00:47:00 Test Item Value Reference Range Interpretation [...] as normal/abnormal . GFR 154 See_Comment [Automated [place] (test mL/min/1.73m\S\2 message] The code = GFRAA) [...] to interpret this result as normal/abnormal . [id number] 00:47:00 Test Item Value Reference Range Interpretation Comments ACETAMINPH (test code = 94M) 3.6 ug/mL 10.0-30.0 L CARDIAC [id number] 00:47:00 Test Item Value Reference Range Interpretation [...] interpret th is result as normal/abnormal . [id number] 00:42:00 Test Item Value Reference Range Interpretation Comments SALICYLATE (test code = 94B) <1.7 mg/dL 2.8-20.0 L SERUM [id number] 00:38:00 Test Item Value Reference Range Interpretation [...]
--- NOTE | 2022-03-29 01:28 | ER ---
Nurse's Notes [facility] Name: Vanda Pompa Age: 21 yrs Sex: Female : 2000 Arrival Date: 03/28/2022 Time: 22:39 Bed IW1 Private MD: Diagnosis: Anxiety disorder, unspecified Presentation: 03/28 22:44 Chief complaint: EMS states: toned out to pt home. Pt c/o anxiety attack. Coronavirus ld1 screen: At this time, the client does not indicate any symptoms associated with coronavirus-19. Ebola Screen: No symptoms or risks identified at this time. Initial Sepsis Screen: Does the patient meet any 2 criteria? No. Patient's initial sepsis screen is negative. Does the patient have a suspected source of infection? No. Patient's initial sepsis screen is negative. Risk Assessment: Do you want to hurt yourself or someone else? Patient reports no desire to harm self or others. Onset of symptoms was March 28, 2022. 22:44 Method Of Arrival: EMS: [facility] ld1 22:44 Acuity: FREDY 4 ld1 Triage Assessment: 22:46 General: Appears in no apparent distress. comfortable, Behavior is calm, cooperative, ld1 appropriate for age. Pain: Denies pain. EENT: No signs and/or symptoms were reported regarding the EENT system. Neuro: Level of Consciousness is awake, alert, obeys commands, Oriented to person, place, time, situation. Cardiovascular: Capillary refill < 3 seconds Patient's skin is warm and dry. Respiratory: Airway is patent Respiratory effort is even, unlabored. GI: Abdomen is flat, non-distended. : No signs and/or symptoms were reported regarding the genitourinary system. Derm: No signs and/or symptoms reported regarding the dermatologic system. Musculoskeletal: No signs and/or symptoms reported regarding the musculoskeletal system. Historical: - Allergies: 22:46 No Known Allergies; ld1 - PMHx: 22:46 Asthma; Bipolar disorder; depressive disorder; ld1 - PSHx: 22:46 ear surgery; ld1 - Immunization history:: Adult Immunizations up to date. - Social history:: Smoking status: Patient denies any tobacco usage or history of. Patient/guardian denies using alcohol. Assessment: 03/29 01:32 Reassessment: pt not seen by this RN discharged by EDP pt left before signing discharge bb paperwork. Vital Signs: 03/28 22:44 BP 131 / 86; Pulse 98; Resp 18; Temp 98.1(O); Pulse Ox 96% on R/A; Weight 49.9 kg; ld1 Height 5 ft. 4 in. (162.56 cm); Pain 0/10; 22:44 Body Mass Index 18.88 (49.90 kg, 162.56 cm) ld1 ED Course: 22:39 Patient arrived in ED. bp1 22:46 Triage completed. ld1 22:46 Arm band placed on right wrist. ld1 22:54 Teresa Clay MD is Attending Physician. sd2 03/29 01:33 Patient did not have IV access during this emergency room visit. bb Administered Medications: 01:32 CANCELLED (pt left the Sudeep): Ativan (LORazepam) 1 mg PO once bb Outcome: 01:28 Discharge ordered by . sd2 01:33 Discharged to home bb 01:33 Condition: stable 01:33 Patient left the ED. bb Signatures: Ivet Wynne, RN RN bb Yamileth Jarrell bp1 Sunshine Rivas RN RN ld1 Teresa Clay MD MD sd2
--- NOTE | 2022-03-29 01:29 | EDPHYS ---
Physician Documentation [facility] Name: Vanda Pompa Age: 21 yrs Sex: Female : 2000 Arrival Date: 03/28/2022 Time: 22:39 Bed IW1 Private MD: ED Physician Teresa Clay HPI: 03/29 00:46 This 21 yrs old Female presents to ER via EMS with complaints of Anxiety. sd2 00:46 21 yo F with a history of bipolar disorder, depression and anxiety presents with CC of sd2 worsening anxiety. Pt reports her anxiety has been worsening despite receiving her recent monthly injection for her psychiatric diagnoses. She is also on Abilify but has not taken it today. She denies any suicidal or homicidal ideation or hallucinations. She reports "I do not want to go to a mental hospital. I just want a safe haven for the night." . Historical: - Allergies: 03/28 22:46 No Known Allergies; ld1 - PMHx: 22:46 Asthma; Bipolar disorder; depressive disorder; ld1 - PSHx: 22:46 ear surgery; ld1 - Immunization history:: Adult Immunizations up to date. - Social history:: Smoking status: Patient denies any tobacco usage or history of. Patient/guardian denies using alcohol. ROS: 03/29 00:46 Constitutional: Negative for fever, chills, and weight loss, Eyes: Negative for injury, sd2 pain, redness, and discharge, Cardiovascular: Negative for chest pain, palpitations, and edema, Respiratory: Negative for shortness of breath, cough, wheezing. Abdomen/GI: Negative for abdominal pain, nausea, vomiting, diarrhea. MS/Extremity: Negative for injury and deformity, Skin: Negative for injury, rash, and discoloration, Psych: Positive for depression, anxiety, Negative for suicidal ideation, homicidal ideation, and hallucinations. Exam: 00:46 Constitutional: This is a well developed, well nourished patient who is awake, alert, sd2 and in no acute distress. Head/Face: Normocephalic, atraumatic. Eyes: EOMI, normal conjunctiva bilaterally 01:00 Chest/axilla: Normal chest wall appearance and motion. Nontender with no deformity. sd2 Cardiovascular: Regular rate and rhythm with a normal S1 and S2. No gallops, murmurs, or rubs. 2+ distal pulses. Respiratory: Lungs have equal breath sounds bilaterally, clear to auscultation and percussion. No rales, rhonchi or wheezes noted. No increased work of breathing, no retractions or nasal flaring. Abdomen/GI: Soft, non-tender, with normal bowel sounds. No guarding or rebound. No evidence of tenderness throughout. Skin: Warm, dry with normal turgor. Normal color with no rashes, no lesions, and no evidence of cellulitis. MS/ Extremity: Pulses equal, no cyanosis. Neurovascular intact. Full, normal range of motion. Ambulatory without difficulty. Psych: Awake, alert, with orientation to person, place and time. Behavior, mood, and affect are within normal limits. Vital Signs: 03/28 22:44 BP 131 / 86; Pulse 98; Resp 18; Temp 98.1(O); Pulse Ox 96% on R/A; Weight 49.9 kg; ld1 Height 5 ft. 4 in. (162.56 cm); Pain 0/10; 22:44 Body Mass Index 18.88 (49.90 kg, 162.56 cm) ld1 MDM: 22:54 Patient medically screened. sd2 03/29 01:00 Differential Diagnosis anxiety, depression, panic attack, medication non-compliance, sd2 substance abuse among others. Data reviewed: vital signs, nurses notes. : ED course: I was informed that the patient has left the ER after my evaluation. Ativan sd2 was ordered. Pt did not stay to receive the medication. She had asked to speak to the "head nurse" after my evaluation. I informed the charge nurse who went to go speak with the patient but she had already left the ER per registration. Pt to be discharged at this time. She was otherwise stable for discharge after my evaluation and did not appear to be any harm to himself or others.. Administered Medications: 01:32 CANCELLED (pt left the Sudeep): Ativan (LORazepam) 1 mg PO once bb Disposition Summary: 03/29/22 01:28 Discharge Ordered Location: Home sd2 Problem: an acute exacerbation sd2 Symptoms: are unchanged sd2 Condition: Stable sd2 Diagnosis - Anxiety disorder, unspecified sd2 Followup: sd2 - With: Private Physician - When: 2 - 3 days - Reason: Recheck today's complaints, Continuance of care, Re-evaluation by your physician Discharge Instructions: - Discharge Summary Sheet sd2 - Managing Anxiety, Adult sd2 Forms: - Medication Reconciliation Form sd2 - Thank You Letter sd2 - Antibiotic Education sd2 - Prescription Opioid Use sd2 Signatures: Sunshine Rivas RN RN ld1 Teresa Clay MD MD sd2 Ivet Wynne RN bb Corrections: (The following items were deleted from the chart) 01:32 00:39 Ativan (LORazepam) 1 mg PO once ordered. sd2 bb
== END 2022-03-29 01:33 | disposition home or self-care (01) ==
LOC: ER 22:28
DX: F41.9 Anxiety disorder, unspecified (principal)

== ENCOUNTER 2022-03-29 17:19 | Emergency (ER) | payer OTHER ==
--- OUTSIDE RECORDS SUMMARY | 2022-03-29 17:25 | XMS REPORT | Continuity of Care Document ---
:[address] [facility] t Address [address] [place] [address] [address]. [address] [place] [address] Care Team Providers Name Role Phone NILTON DANIELS Mustapha Primary Care Physician Unavailable HANDY DOMINGUEZ Attending Clinician Unavailable MIKE JACOBS Attending Clinician Unavailable Sol Mack MD Attending Clinician Vaccine, Janice Talbert Attending Clinician Unavailable SOL MACK Attending Clinician Unavailable Jaguar Rizzo MD Attending Clinician Doctor Unassigned, [place] Attending Clinician Unavailable Kitty Crews Attending Clinician Ame Ramirez MD Attending Clinician Maggie Brooks MD Attending Clinician DR ALAINA PARRY Attending Clinician Unavailable DR ALAINA PARRY Admitting Clinician Unavailable Payers Payer Name Policy Type Policy Number Effective Date Expiration Date Chidi nice [facility] MEDICAID STAR [id number] 2021 00:00:00 [facility] [id number] 2016 CHOICE [place] STAR 00:00:00 Problems Condition [...] partial in partial 00:00: g of this [place] remission, remission, 00 note Me dical most [...] different from the original. 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 Utility Allergies, Adverse Reactions, Alerts Allergy Allergy Status Severity Reaction(s) Onset Inactive Treating Comm ents Source Name Type Date Date Clinician No Known DA Active U [facility] Drug 07-09 Allergie 00:00: s 00 No Known DA Active U 2020-07 [facility] Drug 07-25 Allergie 00:00: s 00 Unable DA Active [facility] 2020[facility] Assess 00:00: 00 No Known DA Active [facility] s NO KNOWN Drug Active Univers ALLERGIE Class ity of S [facility] Family History Family Member Diagnosis Comments Start Date Stop Date Source Natural brother Psychiatry Universit y of [facility] Natural father Alcohol abuse Univers ity [facility] Natural father Substance abuse Unive rsity of [facility] Natural mother Psychiatry [facility] Social History Social Habit Start Date Stop Date Quantity Comments Source History SDOH University o f Alcohol Comment [place] [facility] Exposure to 2022-03-18 2022-03-28 Not sure University SARS-CoV-2 00:00:00 09:52:00 [place] [facility] (event) Branch Alcohol intake 2022-03-28 2022-03-28 Lifetime University of 00:00:00 00:00:00 non-drinker [facility] (finding) Branch Tobacco use and 2022-01-17 2022-01-17 Smokeless tobacco Un iversity of exposure 00:00:00 00:00:00 non-user [place] [facility] History SDOH 2020-04-20 2020-04-20 1 University o f Alcohol Frequency 00:00:00 00:00:00 [place] [facility] History SDOH 2020-04-20 2020-04-20 99 University o f Alcohol Std 00:00:00 00:00:00 [place] [facility] Drinks Branch History [facility] 2020-04-20 2020-04-20 1 [place] o f Alcohol Binge 00:00:00 00:00:00 [place] [facility] Sex Assigned At [birth year] Universit y of 00:00:00 00:00:00 [facility] Smoking Status Start Date Stop Date Source Never smoked tobacco [facility] Medications Ordered Filled Start Stop Current Ordering Indication Dosage Frequency Signature Comments Components Source Medication Medication Date Date Medication? Clinician (SIG) Name Name ARIPiprazol Yes [id number] 300mg 300 mg by Univers e (ABILIFY 9-15 Intramuscu ity of [place]) 00:00: lar route [place] 300 mg sers 00 once every Me dical month. Branch ARIPiprazol 2021- Yes 300mg 300 mg by Univers e (ABILIFY 9-15 [facility] ity of [place]) 00:00: lar route [place] 300 mg sers 00 once every Me dical month. Branch ARIPiprazol Yes [id number] 300mg 300 mg by Univers e (ABILIFY 9-15 [facility]cu ity of [place]) 00:00: lar route [place] 300 mg sers 00 once every Me dical month. Branch ARIPiprazol Yes 300mg 300 mg by Univers e (ABILIFY 9-15 [facility] ity of [place]) 00:00: lar route [place] 300 mg sers 00 once every Me dical month. Branch ARIPiprazol Yes [id number] 300mg 300 mg by Univers e (ABILIFY -15 Intramuscu ity of [facility]) 00:00: lar route [place] 300 mg sers 00 once every Me dical month. Branch ARIPiprazol Yes 300mg 300 mg by Univers e (ABILIFY 15 Intramuscu ity of [facility]) 00:00: lar route [place] 300 mg sers 00 once every Me dical month. Branch ARIPiprazol 2021- Yes [id number] 10mg Take 1 U nivers e 10 mg 9-08 10-09 tablet by ity of tablet 00:00: 04:59 mouth in [place] 00 :00 the Medical morning Branch for 30 days. ARIPiprazol 2021- Yes [id number] 10mg Take 1 U nivers e 10 mg 9-08 10-09 tablet by ity of tablet 00:00: 04:59 mouth in [place] 00 :00 the Medical morning Branch for 30 days. ARIPiprazol 2021- Yes [id number] 10mg Take 1 U nivers e 10 mg 9-08 10-09 tablet by ity of tablet 00:00: 04:59 mouth in [place] 00 :00 the [facility] morning [place] for 30 days. ARIPiprazol 2021- Yes [id number] 10mg Take 1 U nivers e 10 mg 9-08 10-09 tablet by ity of tablet 00:00: 04:59 mouth in [place] 00 :00 the Medical morning Branch for 30 days. ARIPiprazol 2021- Yes [id number] 10mg Take 1 U nivers e 10 mg 9-08 10-09 tablet by ity of tablet 00:00: 04:59 mouth in [place] 00 :00 the [facility] morning [place] for 30 days. ARIPiprazol 2021- Yes [id number] 300mg 300 mg by Univers e (ABILIFY 03-09 Intramuscu it y of [facility]) 00:00: 05:59 lar route [place] 300 mg sers 00 :00 once every Me dical month for Branch 90 days. ARIPiprazol 2021- No [id number] 300mg 300 mg by Univers e (ABILIFY 03-09 Intramuscu it y of [facility]) 00:00: 00:00 lar route [place] 300 mg sers 00 :00 once every Me dical month for Branch 90 days. ARIPiprazol 2021- No [id number] 300mg 300 mg by Univers e (ABILIFY 03-09 Intramuscu it y of [facility]) 00:00: 00:00 lar route [place] 300 mg sers 00 :00 once every Me dical month for Branch 90 days. ARIPiprazol 2021- No [id number] 300mg 300 mg by Univers e (ABILIFY 03-09 Intramus[facility] it y of [facility]) 00:00: 00:00 lar route [place] 300 mg sers 00 :00 once every Me dical month for Branch 90 days. QUEtiapine 2021- No [id number] 50mg Take 1 Un [place] 50 mg 01-17 tablet by ity of tablet 00:00: 00:00 mouth in [place] 00 :00 the Medical morning Branch and 1 tablet in the evening. Do all this for 60 days. QUEtiapine 2021-2021- No [id number] 50mg Take 1 Un [place] 50 mg 01-17 tablet by ity of tablet 00:00: 00:00 mouth in [place] 00 :00 the Medical morning Branch and 1 tablet in the evening. Do all this for 60 days. QUEtiapine 2021- No [id number] 50mg Take 1 Un [place] 50 mg 01-17- tablet by ity of tablet 00:00: 00:00 mouth in [place] 00 :00 the Medical morning Branch and 1 tablet in the evening. Do all this for 60 days. QUEtiapine 2021-2021- No [id number] 50mg Take 1 Un [place] 50 mg 01-17- tablet by ity of tablet 00:00: 00:00 mouth in [place] 00 :00 the Medical morning Branch and 1 tablet in the evening. Do all this for 60 days. lithium 2021- No [id number] 300mg Take 1 U nivers carbonate 12-07 tablet by ity of CR 300 mg 00:00: 04:59 mouth at [place] SR tablet 00 :00 bedtime Medical for 90 Branch days. lithium No [id number] 450mg Take 1 U nivers carbonate 12-07 tablet by ity of CR 450 mg 00:00: 04:59 mouth [place] SR tablet 00 :00 every Medical morning Branch for 90 days. lithium No [id number] 300mg Take 1 U nivers carbonate 12-07 tablet by ity of CR 300 mg 00:00: 04:59 mouth at [place] SR tablet 00 :00 bedtime Medical for 90 Branch days. lithium No [id number] 450mg Take 1 U nivers carbonate 12-07 tablet by ity of CR 450 mg 00:00: 04:59 mouth [place] SR tablet 00 :00 every Medical morning Branch for 90 days. lithium No [id number] 300mg Take 1 U nivers carbonate 12-07 tablet by ity of CR 300 mg 00:00: 04:59 mouth at [place] SR tablet 00 :00 bedtime Medical for 90 Branch days. lithium No [id number] 450mg Take 1 U nivers carbonate 12-07 tablet by ity of CR 450 mg 00:00: 04:59 mouth [place] SR tablet 00 :00 every Medical morning Branch for 90 days. lithium No [id number] 300mg Take 1 U nivers carbonate 12-07 tablet by ity of CR 300 mg 00:00: 04:59 mouth at [place] SR tablet 00 :00 bedtime Medical for 90 Branch days. lithium No [id number] 450mg Take 1 U nivers carbonate 12-07 tablet by ity of CR 450 mg 00:00: 04:59 mouth [place] SR tablet 00 :00 every Medical morning Branch for 90 days. miSOPROStoL Yes [id number] 200ug Take 1 Univers 200 mcg 4-29 tablet by ity of tablet 00:00: mouth [place] 00 SEE-INSTRU Medical CTIONS. Branch Take one tab the night before and one tab the morning of procedure miSOPROStoL Yes [id number] 200ug Take 1 Univers 200 mcg 4-29 tablet by ity of tablet 00:00: mouth SEE-INSTRU Medical CTIONS. Branch Take one tab the night before and one tab the morning of procedure miSOPROStoL Yes [id number] 200ug Take 1 Univers 200 mcg 4-29 tablet by ity of tablet 00:00: mouth SEE-INSTR Medical CTIONS. Branch Take one tab the night before and one tab the morning of procedure miSOPROStoL Yes [id number] 200ug Take 1 Univers 200 mcg 4-29 tablet by ity of tablet 00:00: mouth SEE-INSTR Medical CTIONS. Branch Take one tab the night before and one tab the morning of procedure miSOPROStoL Yes [id number] 200ug Take 1 Univers 200 mcg 4-29 tablet by ity of tablet 00:00: mouth SEE-[facility] Medical CTIONS. Branch Take one tab the night before and one tab the morning of procedure Immunizations Ordered Immunization Filled Immunization Date Status Commen ts Source Name Name SARS-COV-2 COVID-19 2022-03-17 Completed Unive rsity of MIKE-SUCROSE VACCINE 00:00:00 [facility] 12 YRS+, BIVALENT Branch 0.3ML, IM, (PFIZER ARITA TOP BOOSTER) SARS-COV-2 COVID-19 2022-03-17 Completed Unive rsity of MIKE-SUCROSE VACCINE 00:00:00 [facility] 12 YRS+, BIVALENT Branch 0.3ML, IM, (PFIZER ARITA TOP BOOSTER) SARS-COV-2 COVID-19 2022-03-17 Completed Unive rsity of MIKE-SUCROSE VACCINE 00:00:00 [facility] 12 YRS+, BIVALENT Branch 0.3ML, IM, (PFIZER ARITA TOP BOOSTER) SARS-COV-2 COVID-19 2022-03-17 Completed Unive rsity of MIKE-SUCROSE VACCINE 00:00:00 [facility] 12 YRS+, BIVALENT Branch 0.3ML, IM, (PFIZER ARITA TOP BOOSTER) SARS-COV-2 COVID-19 2021-06-24 Completed Unive rsity of PFIZER VACCINE 00:00:00 [facility] SARS-COV-2 COVID-19 2021-06-24 Completed Unive rsity of PFIZER VACCINE 00:00:00 [facility] SARS-COV-2 COVID-19 2021-06-24 Completed Unive rsity of PFIZER VACCINE 00:00:00 [facility] SARS-COV-2 COVID-19 2021-06-24 Completed Unive rsity of PFIZER VACCINE 00:00:00 [facility] SARS-COV-2 COVID-19 2021-06-24 Completed Unive rsity of PFIZER VACCINE 00:00:00 [facility] SARS-COV-2 COVID-19 2020-11-21 Completed Unive rsity of PFIZER VACCINE 00:00:00 [facility] SARS-COV-2 COVID-19 2020-11-21 Completed Unive rsity of PFIZER VACCINE 00:00:00 [facility] SARS-COV-2 COVID-19 2020-11-21 Completed Unive rsity of PFIZER VACCINE 00:00:00 [facility] SARS-COV-2 COVID-19 2020-11-21 Completed Unive rsity of PFIZER VACCINE 00:00:00 [facility] SARS-COV-2 COVID-19 2020-11-21 Completed Unive rsity of PFIZER VACCINE 00:00:00 [facility] SARS-COV-2 COVID-19 2020-10-24 Completed Unive rsity of PFIZER VACCINE 00:00:00 [facility] SARS-COV-2 COVID-19 2020-10-24 Completed Unive rsity of PFIZER VACCINE 00:00:00 [facility] SARS-COV-2 COVID-19 2020-10-24 Completed Unive rsity of PFIZER VACCINE 00:00:00 [facility] SARS-COV-2 COVID-19 2020-10-24 Completed Unive rsity of PFIZER VACCINE 00:00:00 [facility] SARS-COV-2 COVID-19 2020-10-24 Completed Unive rsity of PFIZER VACCINE 00:00:00 [facility] Influenza Virus 2020-07-08 Completed Universit y [...] OMV 2018-10-31 Completed Univ ersity of 00:00:00 [facility] Meningococcal B, OMV 2018-10-31 Completed Univ ersity of 00:00:00 [facility] Meningococcal B, OMV 2018-10-31 Completed Univ ersity of 00:00:00 [facility] Meningococcal B, OMV 2018-10-31 Completed Univ ersity of 00:00:00 [facility] Meningococcal B, OMV 2018-10-31 Completed Univ ersity of 00:00:00 [facility] Influenza Virus 2018-08-29 Completed Universit y of Vaccine Quad .5 mL IM 00:00:00 [place] [facility] 6+ MO Branch Meningococcal B, OMV 2018-08-29 Completed Univ ersity of 00:00:00 [facility] Influenza Virus 2018-08-29 Completed Universit y of Vaccine Quad .5 mL IM 00:00:00 [place] [facility] 6+ MO Branch Meningococcal B, OMV 2018-08-29 Completed Univ ersity of 00:00:00 [facility] Influenza Virus 2018-08-29 Completed Universit y of Vaccine Quad .5 mL IM 00:00:00 [place] [facility] 6+ MO Branch Meningococcal B, OMV 2018-08-29 Completed Univ ersity of 00:00:00 [facility] Influenza Virus 2018-08-29 Completed Universit y of Vaccine Quad .5 mL IM 00:00:00 [place] [facility] 6+ MO Branch Meningococcal B, OMV 2018-08-29 Completed Univ ersity of 00:00:00 [facility] Influenza Virus 2018-08-29 Completed Universit y of Vaccine Quad .5 mL IM 00:00:00 [place] [facility] 6+ MO Branch Meningococcal B, OMV 2018-08-29 Completed Univ ersity of 00:00:00 [facility] Meningococcal 2018-01-17 Completed University of Polysaccharide 00:00:00 [place] [facility]i torito (groups A, C, Y and Branc h W-135) conjugate vaccine (MCV4P) Meningococcal 2018-01-17 Completed University of Polysaccharide 00:00:00 [place] [facility] (groups A, C, Y and Branc h W-135) conjugate vaccine (MCV4P) Meningococcal 2018-01-17 Completed University of Polysaccharide 00:00:00 [place] [facility] tor[facility] (groups A, C, Y and Branc h W-135) conjugate vaccine (MCV4P) Meningococcal 2018-01-17 Completed University of Polysaccharide 00:00:00 [place] [facility]i torito (groups A, C, Y and Branc h W-135) conjugate vaccine (MCV4P) Meningococcal 2018-01-17 Completed University of Polysaccharide 00:00:00 [place] [facility] (groups A, C, Y and Branc h W-135) conjugate vaccine (MCV4P) Influenza Virus 2017-04-12 Completed Universit y of Vaccine Quad IM 3+ 00:00:00 [facility] Influenza Virus 2017-04-12 Completed Universit y of Vaccine Quad IM 3+ 00:00:00 [facility] Influenza Virus 2017-04-12 Completed Universit y of Vaccine Quad IM 3+ 00:00:00 [facility] Influenza Virus 2017-04-12 Completed Universit y of Vaccine Quad IM 3+ 00:00:00 [facility] Influenza Virus 2017-04-12 Completed Universit y of Vaccine Quad IM 3+ 00:00:00 [facility] HPV9 2017-02-01 Completed University of 00:00:00 [facility] HPV9 2017-02-01 Completed University of 00:00:00 [facility] HPV9 2017-02-01 Completed University of 00:00:00 [facility] HPV9 2017-02-01 Completed University of 00:00:00 [facility] HPV9 2017-02-01 Completed University of 00:00:00 [facility] HPV 2016-01-20 Completed University of 00:00:00 [facility] HPV 2016-01-20 Completed University of 00:00:00 [facility] HPV 2016-01-20 Completed University of 00:00:00 [facility] HPV 2016-01-20 Completed University of 00:00:00 [facility] HPV 2016-01-20 Completed University of 00:00:00 [facility] Influenza Virus 2015-07-08 Completed Universit y of Vaccine Quad IM 3+ 00:00:00 [facility] HPV9 2015-07-08 Completed University of 00:00:00 [facility] Influenza Virus 2015-07-08 Completed Universit y of Vaccine Quad IM 3+ 00:00:00 [facility] HPV9 2015-07-08 Completed University of 00:00:00 [facility] Influenza Virus 2015-07-08 Completed Universit y of Vaccine Quad IM 3+ 00:00:00 [facility] HPV9 2015-07-08 Completed University of 00:00:00 [facility] Influenza Virus 2015-07-08 Completed Universit y of Vaccine Quad IM 3+ 00:00:00 [facility] HPV9 2015-07-08 Completed University of 00:00:00 [facility] Influenza Virus 2015-07-08 Completed Universit y of Vaccine Quad IM 3+ 00:00:00 [facility] HPV9 2015-07-08 Completed University of 00:00:00 [facility] Influenza Virus 2014-04-02 Completed Universit y of Vaccine (3+ yrs) 00:00:00 [facility] Influenza Virus 2014-04-02 Completed Universit y of Vaccine (3+ yrs) 00:00:00 [facility] Influenza Virus 2014-04-02 Completed Universit y of Vaccine (3+ yrs) 00:00:00 [facility] Influenza Virus 2014-04-02 Completed Universit y of Vaccine (3+ yrs) 00:00:00 [facility] Influenza Virus 2014-04-02 Completed Universit y of Vaccine (3+ yrs) 00:00:00 [facility] Influenza Virus 2013-05-22 Completed Universit y of Vaccine (3+ yrs) 00:00:00 [facility] Meningococcal 2013-05-22 Completed University of Polysaccharide 00:00:00 [place] [facility] tor[facility] (groups A, C, Y and Branc h W-135) conjugate vaccine (MCV4P) TDAP 2013-05-22 Completed University of 00:00:00 [facility] Influenza Virus 2013-05-22 Completed Universit y of Vaccine (3+ yrs) 00:00:00 [facility] Meningococcal 2013-05-22 Completed University of Polysaccharide 00:00:00 [place] [facility]i torito (groups A, C, Y and Branc h W-135) conjugate vaccine (MCV4P) TDAP 2013-05-22 Completed University of 00:00:00 [facility] Influenza Virus 2013-05-22 Completed Universit y of Vaccine (3+ yrs) 00:00:00 [facility] Meningococcal 2013-05-22 Completed University of Polysaccharide 00:00:00 [place] Medi torito (groups A, C, Y and Branc h W-135) conjugate vaccine (MCV4P) TDAP 2013-05-22 Completed University of 00:00:00 [facility] Influenza Virus 2013-05-22 Completed Universit y of Vaccine (3+ yrs) 00:00:00 [facility] Meningococcal 2013-05-22 Completed University of Polysaccharide 00:00:00 [place] Medi torito (groups A, C, Y and Branc h W-135) conjugate vaccine (MCV4P) TDAP 2013-05-22 Completed University of 00:00:00 [facility] Influenza Virus 2013-05-22 Completed Universit y of Vaccine (3+ yrs) 00:00:00 [facility] Meningococcal 2013-05-22 Completed University of Polysaccharide 00:00:00 [place] Medi torito (groups A, C, Y and Branc h W-135) conjugate vaccine (MCV4P) TDAP 2013-05-22 Completed University of 00:00:00 [facility] Influenza Virus 2012-06-13 Completed Universit y of Vaccine 00:00:00 [facility] Influenza Virus 2012-06-13 Completed Universit y of Vaccine 00:00:00 [facility] Influenza Virus 2012-06-13 Completed Universit y of Vaccine 00:00:00 [facility] Influenza Virus 2012-06-13 Completed Universit y of Vaccine 00:00:00 [facility] Influenza Virus 2012-06-13 Completed Universit y of Vaccine 00:00:00 [facility] Influenza Virus 2011-05-18 Completed Universit y of Vaccine 00:00:00 [facility] Influenza Virus 2011-05-18 Completed Universit y of Vaccine 00:00:00 [facility] Influenza Virus 2011-05-18 Completed Universit y of Vaccine 00:00:00 [facility] Influenza Virus 2011-05-18 Completed Universit y of Vaccine 00:00:00 [facility] Influenza Virus 2011-05-18 Completed Universit y of Vaccine 00:00:00 [facility] Influenza Virus 2010-05-26 Completed Universit y of Vaccine 00:00:00 [facility] Influenza Virus 2010-05-26 Completed Universit y of Vaccine 00:00:00 [facility] Influenza Virus 2010-05-26 Completed Universit y of Vaccine 00:00:00 [facility] Influenza Virus 2010-05-26 Completed Universit y of Vaccine 00:00:00 [facility] Influenza Virus 2010-05-26 Completed Universit y of Vaccine 00:00:00 [facility] Influenza Virus 2009-06-23 Completed Universit y of Vaccine 00:00:00 [facility] Influenza Virus 2009-06-23 Completed Universit y of Vaccine 00:00:00 [facility] Influenza Virus 2009-06-23 Completed Universit y of Vaccine 00:00:00 [facility] Influenza Virus 2009-06-23 Completed Universit y of Vaccine 00:00:00 [facility] Influenza Virus 2009-06-23 Completed Universit y of Vaccine 00:00:00 [facility] Influenza Virus 2009-05-20 Completed Universit y of Vaccine 00:00:00 [facility] Influenza Virus 2009-05-20 Completed Universit y of Vaccine 00:00:00 [facility] Influenza Virus 2009-05-20 Completed Universit y of Vaccine 00:00:00 [facility] Influenza Virus 2009-05-20 Completed Universit y of Vaccine 00:00:00 [facility] Influenza Virus 2009-05-20 Completed Universit y of Vaccine 00:00:00 [facility] Influenza Virus 2007-06-01 Completed Universit y of Vaccine 00:00:00 [facility] Influenza Virus 2007-06-01 Completed Universit y of Vaccine 00:00:00 [facility] Influenza Virus 2007-06-01 Completed Universit y of Vaccine 00:00:00 [facility] Influenza Virus 2007-06-01 Completed Universit y of Vaccine 00:00:00 [facility] Influenza Virus 2007-06-01 Completed Universit y of Vaccine 00:00:00 [facility] DTAP 2006-05-24 Completed University of 00:00:00 [facility] Proquad 2006-05-24 Completed University of (MMR/VARICELLA) 00:00:00 [facility] Polio (IPV/OPV) 2006-05-24 Completed Universit y of 00:00:00 [facility] DTAP 2006-05-24 Completed University of 00:00:00 [facility] Proquad 2006-05-24 Completed University of (MMR/VARICELLA) 00:00:00 [facility] Polio (IPV/OPV) 2006-05-24 Completed Universit y of 00:00:00 [facility] DTAP 2006-05-24 Completed University of 00:00:00 [facility] Proquad 2006-05-24 Completed University of (MMR/VARICELLA) 00:00:00 [facility] Polio (IPV/OPV) 2006-05-24 Completed Universit y of 00:00:00 [facility] DTAP 2006-05-24 Completed University of 00:00:00 [facility] Proquad 2006-05-24 Completed University of (MMR/VARICELLA) 00:00:00 [facility] Polio (IPV/OPV) 2006-05-24 Completed Universit y of 00:00:00 [facility] DTAP 2006-05-24 Completed University of 00:00:00 [facility] Proquad 2006-05-24 Completed University of (MMR/VARICELLA) 00:00:00 [facility] Polio (IPV/OPV) 2006-05-24 Completed Universit y of 00:00:00 [facility] HEPATITIS A 2005-05-19 Completed University of 00:00:00 [facility] Influenza Virus 2005-05-19 Completed Universit y of Vaccine 00:00:00 [facility] HEPATITIS A 2005-05-19 Completed University of 00:00:00 [facility] Influenza Virus 2005-05-19 Completed Universit y of Vaccine 00:00:00 [facility] HEPATITIS A 2005-05-19 Completed University of 00:00:00 [facility] Influenza Virus 2005-05-19 Completed Universit y of Vaccine 00:00:00 [facility] HEPATITIS A 2005-05-19 Completed University of 00:00:00 [facility] Influenza Virus 2005-05-19 Completed Universit y of Vaccine 00:00:00 [facility] HEPATITIS A 2005-05-19 Completed University of 00:00:00 [facility] Influenza Virus 2005-05-19 Completed Universit y of Vaccine 00:00:00 [facility] HEPATITIS A 2004-05-17 Completed University of 00:00:00 [facility] HEPATITIS A 2004-05-17 Completed University of 00:00:00 [facility] HEPATITIS A 2004-05-17 Completed University of 00:00:00 [facility] HEPATITIS A 2004-05-17 Completed University of 00:00:00 [facility] HEPATITIS A 2004-05-17 Completed University of 00:00:00 [facility] Polio (IPV/OPV) 2003-08-21 Completed Universit y of 00:00:00 [facility] Polio (IPV/OPV) 2003-08-21 Completed Universit y of 00:00:00 [facility] Polio (IPV/OPV) 2003-08-21 Completed Universit y of 00:00:00 [facility] Polio (IPV/OPV) 2003-08-21 Completed Universit y of 00:00:00 [facility] HIB 4 Dose Schedule 2003-05-22 Completed Unive rsity of 00:00:00 [facility] MMR 2003-05-22 Completed University of 00:00:00 [facility] Pneumococcal 7 2003-05-22 Completed University of Conjugate, PCV7 00:00:00 [place] [facility] (Prevnar7) [facility] Varicella 2003-05-22 Completed University of (varivax)(chicken 00:00:00 [place] [facility] pox) [facility] HIB 4 Dose Schedule 2003-05-22 Completed Unive rsity of 00:00:00 [facility] MMR 2003-05-22 Completed University of 00:00:00 [facility] Pneumococcal 7 2003-05-22 Completed University of Conjugate, PCV7 00:00:00 [place] [facility] (Prevnar7) Branch Varicella 2003-05-22 Completed University of (varivax)(chicken 00:00:00 [place] [facility] pox) Branch HIB 4 Dose Schedule 2003-05-22 Completed Unive rsity of 00:00:00 [facility] MMR 2003-05-22 Completed University of 00:00:00 [facility] Pneumococcal 7 2003-05-22 Completed University of Conjugate, PCV7 00:00:00 [place] [facility] (Prevnar7) Branch Varicella 2003-05-22 Completed University of (varivax)(chicken 00:00:00 [place] [facility] pox) [facility] HIB 4 Dose Schedule 2003-05-22 Completed Unive rsity of 00:00:00 [facility] MMR 2003-05-22 Completed University of 00:00:00 [facility] Pneumococcal 7 2003-05-22 Completed University of Conjugate, PCV7 00:00:00 [place] [facility] (Prevnar7) Branch Varicella 2003-05-22 Completed University of (varivax)(chicken 00:00:00 [place] [facility] pox) [facility] DTAP 2003-01-01 Completed University of 00:00:00 [facility] HIB 4 Dose Schedule 2003-01-01 Completed Unive rsity of 00:00:00 [facility] Hep B, Adol or Pedi 2003-01-01 Completed Unive rsity of Dosage 00:00:00 [facility] Pneumococcal 7 2003-01-01 Completed University of Conjugate, PCV7 00:00:00 [place] [facility] (Prevnar7) Branch DTAP 2003-01-01 Completed University of 00:00:00 [facility] HIB 4 Dose Schedule 2003-01-01 Completed Unive rsity of 00:00:00 [facility] Hep B, Adol or Pedi 2003-01-01 Completed Unive rsity of Dosage 00:00:00 [facility] Pneumococcal 7 2003-01-01 Completed University of Conjugate, PCV7 00:00:00 [place] [facility] (Prevnar7) Branch DTAP 2003-01-01 Completed University of 00:00:00 [facility] HIB 4 Dose Schedule 2003-01-01 Completed Unive rsity of 00:00:00 [facility] Hep B, Adol or Pedi 2003-01-01 Completed Unive rsity of Dosage 00:00:00 [facility] Pneumococcal 7 2003-01-01 Completed University of Conjugate, PCV7 00:00:00 [place] [facility] (Prevnar7) Branch DTAP 2003-01-01 Completed University of 00:00:00 [facility] HIB 4 Dose Schedule 2003-01-01 Completed Unive rsity of 00:00:00 [facility] Hep B, Adol or Pedi 2003-01-01 Completed Unive rsity of Dosage 00:00:00 [facility] Pneumococcal 7 2003-01-01 Completed University of Conjugate, PCV7 00:00:00 [place] [facility] (Prevnar7) Branch DTAP 2002 Completed University of 00:00:00 [facility] HIB 4 Dose Schedule 2002 Completed Unive rsity of 00:00:00 [facility] Pneumococcal 7 2002 Completed University of Conjugate, PCV7 00:00:00 [place] [facility] (Prevnar7) Branch Polio (IPV/OPV) 2002 Completed Universit y of 00:00:00 [facility] DTAP 2002 Completed University of 00:00:00 [facility] HIB 4 Dose Schedule 2002 Completed Unive rsity of 00:00:00 [facility] Pneumococcal 7 2002 Completed University of Conjugate, PCV7 00:00:00 [place] [facility] (Prevnar7) Branch Polio (IPV/OPV) 2002 Completed Universit y of 00:00:00 [facility] DTAP 2002 Completed University of 00:00:00 [facility] HIB 4 Dose Schedule 2002 Completed Unive rsity of 00:00:00 [facility] Pneumococcal 7 2002 Completed University of Conjugate, PCV7 00:00:00 [place] [facility] (Prevnar7) Branch Polio (IPV/OPV) 2002 Completed Universit y of 00:00:00 [facility] DTAP 2002 Completed University of 00:00:00 [facility] HIB 4 Dose Schedule 2002 Completed Unive rsity of 00:00:00 [facility] Pneumococcal 7 2002 Completed University of Conjugate, PCV7 00:00:00 [facility] ical (Prevnar7) Branch Polio (IPV/OPV) 2002 Completed Universit y of 00:00:00 [facility] DTAP 2002 Completed University of 00:00:00 [facility] HIB 4 Dose Schedule 2002 Completed Unive rsity of 00:00:00 [facility] Hep B, Adol or Pedi 2002 Completed Unive rsity of Dosage 00:00:00 [facility] Polio (IPV/OPV) 2002 Completed Universit y of 00:00:00 [facility] DTAP 2002 Completed University of 00:00:00 [facility] HIB 4 Dose Schedule 2002 Completed Unive rsity of 00:00:00 [facility] Hep B, Adol or Pedi 2002 Completed Unive rsity of Dosage 00:00:00 [facility] Polio (IPV/OPV) 2002 Completed Universit y of 00:00:00 [facility] DTAP 2002 Completed University of 00:00:00 [facility] HIB 4 Dose Schedule 2002 Completed Unive rsity of 00:00:00 [facility] Hep B, Adol or Pedi 2002 Completed Unive rsity of Dosage 00:00:00 [facility] Polio (IPV/OPV) 2002 Completed Universit y of 00:00:00 [facility] DTAP 2002 Completed University of 00:00:00 [facility] HIB 4 Dose Schedule 2002 Completed Unive rsity of 00:00:00 [facility] Hep B, Adol or Pedi 2002 Completed Unive rsity of Dosage 00:00:00 [facility] Polio (IPV/OPV) 2002 Completed Universit y of 00:00:00 [facility] Hep B, Adol or Pedi 2002 Completed Unive rsity of Dosage 00:00:00 [facility] Hep B, Adol or Pedi 2002 Completed Unive rsity of Dosage 00:00:00 [facility] Hep B, Adol or Pedi 2002 Completed Unive rsity of Dosage 00:00:00 [facility] Hep B, Adol or Pedi 2002 Completed Unive rsity of Dosage 00:00:00 [facility] Hep B, Adol or Pedi 2002 Completed Unive rsity of Dosage 00:00:00 [facility] Vital Signs Vital Name Observation Time Observation Value Comments Source Height 2020-09-25 23:56:00 165.1 CM Weight 2020-09-25 23:56:00 2.69 KG Systolic blood 2022-03-28 14:54:00 116 mm[Hg] Univer sity of pressure [facility] Diastolic blood 2022-03-28 14:54:00 87 mm[Hg] Unive rsity of pressure [facility] Heart rate 2022-03-28 14:54:00 113 /[facility] Respiratory rate 2022-03-28 14:54:00 18 /min Univ ersity of [facility] Body height 2022-03-28 14:54:[address] [facility] Body weight 2022-03-28 14:54:[address] [facility] BMI 2022-03-28 14:54:00 20.19 kg/m2 [facility] Body temperature 2022-02-24 18:37:00 37 [facility] Body weight 2022-02-24 18:37:00 51.801 kg [facility] BMI 2022-02-24 18:37:00 20.23 [facility] 2022-02-21 12:51:00 133 mm[Hg[facility] pressure [facility] Diastolic blood 2022-02-21 12:51:00 49 mm[Hg] [facility] Heart rate 2022-02-21 12:51:00 108 /min [facility] Respiratory rate 2022-02-21 12:51:00 18 /min [facility] Body height 2022-02-21 12:51:00 160 cm [facility] Oxygen saturation in 2022-01-24 00:45:00 98 /min [facility] Arterial blood by [facility] Pulse oximetry Branch Head 2009-07-13 18:51:00 51 [facility] Occipital-frontal [facility] circumference by [place] Branch measure Procedures Procedure Date / Time Performing Clinician Source Performed SARS-COV-2 COVID-19 2022-03-17 16:49:14 [facility] MIKE-SUCROSE VACCINE 12 [facility] YRS+, BIVALENT 0.3ML, IM, (PFIZER ARITA TOP BOOSTER) SARS-COV-2 COVID-19 2022-03-17 16:49:14 Doctor [facility] MIKE-SUCROSE VACCINE 12 [facility] [place] YRS+, BIVALENT 0.3ML, IM, (PFIZER ARITA TOP BOOSTER) XR PELVIS 3+ VW 2022-02-24 18:13:00 Jaguar Rizzo o monica [facility] EXTERNAL PROVIDER RECORDS 2022-02-22 05:01:00 Doctor Parra [facility] [place] EMERGENCY SERVICES 2022-01-23 05:01:00 Doctor Parra [facility] AGREEMENTS AND [facility] AUTHORIZATIONS EMERGENCY DEPARTMENT 2022-01-23 05:01:00 Doctor Parra [facility] DOCUMENTS [facility] Encounters Start End Encounter Admission Attending Care Care Encounter Source Date/Time Date/Time Type Type Clinicians Facility Department ID 2021-11-02 Outpatient [facility] [id number] [place] 11:00:33 [id number] [facility] 2021-07-09 Inpatient [facility] [id number] [facility] 12:46:00 14 2021-05-25 Inpatient [facility] [id number] [facility] 23:19:00 94 2022-03-28 2022-03-28 Outpatient R REYNALDO [facility] [id number] Univers 10:15:00 12:05:24 MIKE ity o f [facility] 2022-03-28 2022-03-28 Travel 1.2.840.1 1.2.142.599 [id number] Univers 00:00:00 00:00:00 09195.1.1 350.1.13.10 ity of 3.104.2.7 4.[place].7.3.698 [place].602601 084.8 Medica l .[address] [place] [address] 2022-03-17 2022-03-17 Imm/Inj Sol Mack P 1.2.840.1 [id number] Univers 11:30:00 12:25:54 Visit Janice Orosco 32698.1.1 ity of 3.104.2.7 [place] .3.265849 Medica l .[address] [place] [address] 2022-03-17 2022-03-17 [facility] [id number] Univers 11:30:00 11:30:00 SOL ity of [facility] 2022-03-17 2022-03-17 Outpatient R [facility] [id number] Univers 11:30:00 11:30:00 [id number] ity of [facility] 2022-03-17 2022-03-17 Travel 1.2.840.1 1.2.195.291 [id number] Univers 00:00:00 00:00:00 18248.1.1 350.1.13.10 ity of 3.104.2.7 4.2.7.3.698 [place] .3.973624 084.8 Medica l .8 Branch 2022-02-24 2022-02-24 [facility], 1.2.840.1 [id number] Univers 13:02:19 23:59:00 Encounter Jaguar 21792.1.1 it y of 3.104.2.7 [place] .3.537285 Medica l .8 Branch 2022-02-24 2022-02-24 [facility], 1.2.840.2 [id number] Univers 13:00:00 14:33:28 Visit Jaguar 94403.1.1 ity of 3.104.2.7 [place] .3.844756 Medica l .8 Branch 2022-02-24 2022-02-24 Travel 1.2.840.1 1.2.623.244 [id number] Univers 00:00:00 00:00:00 14516.1.1 350.1.13.10 ity of 3.104.2.7 4.2.7.3.698 [place] .3.400804 084.8 Medica l .8 Branch 2022-02-22 2022-02-22 Orders Doctor 1.2.840.8 [id number] Univers 00:00:00 00:00:00 Only Unassigned, 26503.1.1 ity of [place] 3.104.2.7 [place] .3.954008 Medica l .8 Branch 2022-02-21 2022-02-21 Travel 1.2.840.1 1.2.879.932 [id number] Univers 00:00:00 00:00:00 86485.1.1 350.1.13.10 ity of 3.104.2.7 4.2.7.3.698 [place] .3.547165 084.8 Medica l .8 Branch 2022-01-23 2022-01-23 Emergency Kitty Kessler 1.2.840.3 [id number] Univers 19:42:00 21:04:00 Bree 51372.1.1 ity of 3.104.2.7 [place] .3.972403 Medica l .8 Branch 2022-01-23 2022-01-23 Travel 1.2.840.1 1.2.751.091 [id number] Univers 00:00:00 00:00:00 83666.1.1 350.1.13.10 ity of 3.104.2.7 4.2.7.3.698 [place] .3.290940 084.8 Medica l .8 Branch 2022-01-17 2022-01-17 Travel 1.2.840.1 1.2.957.471 [id number] Univers 00:00:00 00:00:00 56829.1.1 350.1.13.10 ity of 3.104.2.7 4.2.7.3.698 [place] .3.593808 084.8 Medica l .8 Branch 2021-12-31 2021-12-31 Office Fish, Ame 1.2.840.2 [id number] [facility] 16:00:00 17:22:54 Visit Maggie Brooks 20946.1.1 ity of 3.104.2.7 [place] .3.521855 Medica l .8 Branch 2021-12-31 2021-12-31 Travel 1.2.840.1 1.2.744.933 [id number] Univers 00:00:00 00:00:00 34138.1.1 350.1.13.10 ity of 3.104.2.7 4.2.7.3.698 [place] .3.728737 084.8 Medica l .8 Branch 2021-12-20 2021-12-20 Travel 1.2.840.1 1.2.321.178 [id number] Univers 00:00:00 00:00:00 47236.1.1 350.1.13.10 ity of 3.104.2.7 4.2.7.3.698 [place] .3.758136 084.8 Medica l .8 Branch 2021-07-09 2021-07-09 Emergency [facility] [id number] [facility] 12:46:00 12:46:00 14 2021-05-25 2021-05-25 Emergency [facility] [id number] [facility] 23:19:00 23:19:00 94 2020-09-25 2020-09-26 Emergency Suzi PARRY [facility] [id number] [facility] 23:49:00 10:04:00 [facility] Results Test Description Test Time Test Comments Results Result Comments Source Coronavirus NAAT, COVD19 2021-07-09 14:05:00 Test Item Value Reference Range Interpretation Comme nts Coronavirus NAAT, COVD19 (test code = SARS results, including Patie nt Name, [id number]) or MRN, were Coronavirus NAAT, COVD19 (test code = ical-devices/vaosrgpyr-twj-fx thorizat RSPUEPU2AJSF8.1) ions. SARS-CoV-2 NAAT Result: (test code = Positive by RT-PCR A SARS-CoV-2 NAAT Result:) COVID-19 Status: AsymptomaticHCG, Urine Qual (LAB)2021-07-09 14:05:00 Test Item Value Reference Range Interpretation Comments HCG, Urine, Qual (test code = HCGU) Negative Negative Drug Screen,[id number] 14:05:00 Test Item Value Reference Range Interpretation [...] Negative code = UPROP) UA, Urinalysis w [id number] 14:05:00 Test Item Value Reference Range Interpretation Comments Color,Urine (test code = Yellow Yellow UCOL) Clarity,Urine (test code = Clear Clear UCLAR) Ph, Urine (test code = UPH) 8.5 5.0-8.0 H Specific [place],Urine 1.020 1.005-1.030 N (test code = USG) [...] Seen A UBACT) Complete Blood Count Auto [id number] 13:20:00 Test Item Value Reference Range Interpretation [...] code = NRBCP) 0 % Comprehensive Metabolic [id number] 13:20:00 Test Item Value Reference Range Interpretation [...] 72 U/L 46-116 N = ALP) Ethanol [id number] 13:20:00 Test Item Value Reference Range Interpretation [...] = HCGU) Negative Negative UA, Urinalysis Rflx Cult/[id number] 00:20:00 Test Item Value Reference Range Interpretation Comments Color,Urine (test code = Yellow Yellow UCOL) Clarity,Urine (test code = Clear Clear UCLAR) PH,Urine (test code = 7.5 5.5-8.5 UPH.XX) Specific [place],Urine 1.020 1.005-1.030 N (test code = USG) [...] cells/uL Negative (test code = ULEU) Urine [id number] 00:20:00 Test Item Value Reference Range Interpretation Comments RBC,Urine (test code = URBC.XX) 0-5 /HPF None Seen WBC,Urine (test code = UWBC.XX) 6-10 /HPF None Seen A Squamous Epithelial Cell,Urine 74-200 /HPF None Seen A (test code = USQEPI.XX) Bacteria,Urine (test code = Moderate /HPF None Seen A UBACT) Drug Screen,[id number] 00:20:00 Test Item Value Reference Range Interpretation [...] code = UPROP) Complete Blood Count Auto [id number] 00:09:00 Test Item Value Reference Range Interpretation [...] code = NRBCP) 0 % Comprehensive Metabolic [id number] 00:09:00 Test Item Value Reference Range Interpretation [...] 83 U/L 46-116 N = ALP) Ethanol [id number] 00:09:00 Test Item Value Reference Range Interpretation Comments Ethanol (test code < 3 mg/dL The pharm acological = ETOH) response to blo od alcohol levels mayvary from individual to i ndividual. The fatal ezio ntrationhas been reported t o be >400mg/dL. Coronavirus PCR, COVID19 [id number] 00:08:00 Test Item Value Reference Range Interpretation Comments Coronavirus PCR, For use under Emergency COVID19 Rapid (test Use Authorization (EUA) code = SARSCOV2) only. Coronavirus PCR, Reference Range: COVID19 Rapid (test Negative code = QTZQIRN93.1) SARS-CoV-2 PCR Result: Negative by RT-PCR (test code = SARS-CoV-2 PCR Result:) COVID-19 Status: AsymptomaticCARBAMAZEPHINE (TEGRETOL)2020-09-26 08:42:00 Test Item Value Reference Range Interpretation Comments CARBAMAZPN (test code = 98A) 19.3 ug/mL 4.0-12.0 HH CARBAMAZEPHINE (TEGRETOL)2020-09-26 05:04:00 Test Item Value Reference Range Interpretation Comments CARBAMAZPN (test code = 98A) 20.1 ug/mL 4.0-12.0 HH URINALYSIS WITH [id number] 02:45:00 Test Item Value Reference Range Interpretation [...] code = USPERM) /HPF NONE DRUGS OF [id number] 02:43:00 Test Item Value Reference Range Interpretation [...] the FDA and the [employer] (CAP) are more stringent than those required for this test. Therefore, the result should be interpreted with caution and close attention to other clinical and epidemiological data PRO TIME AND [id number] 00:51:00 Test Item Value Reference Range Interpretation [...] Heparin. Order Code is ANTI-XA COMPREHENSIVE METABOLIC [id number] 00:47:00 Test Item Value Reference Range Interpretation [...] as normal/abnormal . GFR 154 See_Comment [Automated [place] (test mL/min/1.73m\S\2 message] The code = GFRAA) [...] to interpret this result as normal/abnormal . [id number] 00:47:00 Test Item Value Reference Range Interpretation Comments ACETAMINPH (test code = 94M) 3.6 ug/mL 10.0-30.0 L CARDIAC [id number] 00:47:00 Test Item Value Reference Range Interpretation [...] interpret th is result as normal/abnormal . [id number] 00:42:00 Test Item Value Reference Range Interpretation Comments SALICYLATE (test code = 94B) <1.7 mg/dL 2.8-20.0 L SERUM [id number] 00:38:00 Test Item Value Reference Range Interpretation [...]
[2022-03-29] MEDS ORDERED: IBUPROFEN 200 MG TAB PO ONE (18:02)
[2022-03-29] MEDS ORDERED: LORAZEPAM 1 MG TABLET ONE (18:05)
--- NOTE | 2022-03-29 18:52 | ER ---
Nurse's Notes [facility] Name: Vanda Pompa Age: 21 yrs Sex: Female : 2000 Arrival Date: 03/29/2022 Time: 17:20 Bed DIS1 Private MD: Diagnosis: Anxiety disorder, unspecified Presentation: 03/29 17:33 Chief complaint: EMS states: pt c/o anxiety and depression and wants a "mental iw evaluation" denies suicidal ideation. Coronavirus screen: At this time, the client does not indicate any symptoms associated with coronavirus-19. Ebola Screen: Patient negative for fever greater than or equal to 101.5 degrees Fahrenheit, and additional compatible Ebola Virus Disease symptoms Patient denies exposure to infectious person. Patient denies travel to an Ebola-affected area in the 21 days before illness onset. No symptoms or risks identified at this time. Onset of symptoms was March 29, 2022. 17:33 Method Of Arrival: EMS: [facility] iw 17:33 Acuity: FREDY 3 iw Historical: - PMHx: 17:34 Asthma; Bipolar disorder; depressive disorder; iw - PSHx: 17:34 ear surgery; iw Vital Signs: 18:03 BP 96 / 57; Pulse 89; Resp 16; Pulse Ox 98% on R/A; iw ED Course: 17:20 Patient arrived in ED. iw 17:23 Lobo De León NP is PHCP. pm1 17:23 Dick Fields MD is Attending Physician. pm1 17:34 Triage completed. iw 17:34 Arm band placed on. iw 18:01 Staci Damico RN is Primary Nurse. iw Administered Medications: 18:17 Drug: Ativan (LORazepam) 1 mg Route: PO; iw 18:30 Follow up: Response: No adverse reaction iw 18:17 Drug: Ibuprofen 600 mg Route: PO; iw 18:35 Follow up: Response: No adverse reaction iw Outcome: 18:50 Discharge ordered by . pm1 19:02 Patient left the ED. iw Signatures: Staci Damico RN RN iw Lobo De León NP POLICY ADVISOR pm1
--- NOTE | 2022-03-29 18:52 | EDPHYS ---
Physician Documentation [facility] Name: Vanda Pompa Age: 21 yrs Sex: Female : 2000 Arrival Date: 03/29/2022 Time: 17:20 Bed DIS1 Private MD: MEDARDO Physician Dick Fields HPI: 03/29 18:39 This 21 yrs old Female presents to ER via EMS with complaints of Anxiety. pm1 18:39 The patient presents to the emergency department with anxiety, over unknown pm1 circumstances, depression, over unknown circumstances. Onset: The symptoms/episode began/occurred 3 day(s) ago. Past psychiatric history: Prior diagnosis: bipolar disorder. Associated signs and symptoms: Pertinent negatives: homicidal ideation, suicide ideation. Severity of symptoms: in the emergency department the symptoms are unchanged. The patient has experienced similar episodes in the past, a few times. The patient has been recently seen at the [facility] Emergency Department, today, for similar complaints Patient left the ER prior receiving treatment and after being seen by the ER MD . Historical: - PMHx: 17:34 Asthma; Bipolar disorder; depressive disorder; iw - PSHx: 17:34 ear surgery; iw ROS: 18:39 Constitutional: Negative for fever, chills, and weight loss, Cardiovascular: Negative pm1 for chest pain, palpitations, and edema, Respiratory: Negative for shortness of breath, cough, wheezing, and pleuritic chest pain, Abdomen/GI: Negative for abdominal pain, nausea, vomiting, diarrhea, and constipation, MS/Extremity: Negative for injury and deformity, Skin: Negative for injury, rash, and discoloration, Neuro: Negative for headache, weakness, numbness, tingling, and seizure. 18:39 Psych: Positive for anxiety, depression, Negative for auditory hallucinations, visual hallucinations, homicidal ideation, suicide gesture, suicidal ideation. 18:39 All other systems are negative. Exam: 18:39 Constitutional: This is a well developed, well nourished patient who is awake, alert, pm1 and in no acute distress. Head/Face: Normocephalic, atraumatic. 18:39 Skin: Warm, dry with normal turgor. Normal color with no rashes, no lesions, and no evidence of cellulitis. MS/ Extremity: Pulses equal, no cyanosis. Neurovascular intact. Full, normal range of motion. 18:39 Eyes: Exam is negative for acute changes, Periorbital structures: no acute changes, Pupils: no acute changes, Extraocular movements: no acute changes. 18:39 ENT: Exam is negative for acute changes, Mouth: no acute changes, Lips: normal, moist, Oral mucosa: normal, pink and intact, moist. 18:39 Cardiovascular: Exam negative for acute changes, Rate: normal, Rhythm: regular, Pulses: no pulse deficits are appreciated. 18:39 Respiratory: Exam negative for acute changes, respiratory distress, shortness of breath. 18:39 Neuro: Exam negative for acute changes, Orientation: is normal, Mentation: is normal, Motor: is normal, moves all fours. 18:39 Psych: Exam negative for acute changes, Behavior/mood is pleasant, cooperative, Affect is calm, Oriented to person, place, time, Patient has no thoughts/intents to harm self or others. Delusions/hallucinations are not present. Vital Signs: 18:03 BP 96 / 57; Pulse 89; Resp 16; Pulse Ox 98% on R/A; iw MDM: 17:35 Patient medically screened. [facility] 18:43 Data reviewed: vital signs. Data interpreted: Pulse oximetry: on room air is 98 %. pm1 Interpretation: normal. 18:50 Counseling: I had a detailed discussion with the patient and/or guardian regarding: the pm1 historical points, exam findings, and any diagnostic results supporting the discharge/admit diagnosis, the need for outpatient follow up, a family practitioner, a psychiatrist, to return to the emergency department if symptoms worsen or persist or if there are any questions or concerns that arise at home, Patient's anxiety resolved and patient would like to go home. Administered Medications: 18:17 Drug: Ativan (LORazepam) 1 mg Route: PO; iw 18:30 Follow up: Response: No adverse reaction iw 18:17 Drug: Ibuprofen 600 mg Route: PO; iw 18:35 Follow up: Response: No adverse reaction iw Disposition Summary: 03/29/22 18:50 Discharge Ordered Location: Home pm1 Problem: new pm1 Symptoms: have improved pm1 Condition: Stable pm1 Diagnosis - Anxiety disorder, unspecified pm1 Followup: pm1 - With: Emergency Department - When: As needed - Reason: Worsening of condition Followup: pm1 - With: Private Physician - When: 2 - 3 days - Reason: Recheck today's complaints, Continuance of care, Re-evaluation by your physician Discharge Instructions: - Discharge Summary Sheet pm1 - Generalized Anxiety Disorder, Adult pm1 Forms: - Medication Reconciliation Form pm1 - Thank You Letter pm1 - Antibiotic Education pm1 - Prescription Opioid Use pm1 Signatures: Dick Fields MD MD cha Williams, Irene, RN RN Lobo Hodges, [employer] pm1
[2022-03-31 22:51] VITALS: BP 96/57; O2SAT 98
== END 2022-03-29 19:02 | disposition home or self-care (01) ==
LOC: ER 17:19
DX: F41.9 Anxiety disorder, unspecified (principal)
CPT/HCPCS: 99283

== ENCOUNTER 2022-03-30 20:21 | Emergency (ER) | payer OTHER ==
--- OUTSIDE RECORDS SUMMARY | 2022-03-30 20:27 | XMS REPORT | Continuity of Care Document ---
:2000 Author Organization [facility] t Address [address] [place] [address] Care Team Providers Name Role Phone NILTON DANIELS Mustapha Primary Care Physician Unavailable HANDY DOMINGUEZ Attending Clinician Unavailable SELFMIKE Attending Clinician Unavailable Sol Mack MD Attending Clinician Vaccine, Janice [facility] Attending Clinician Unavailable SOL MACK Attending Clinician Unavailable Jaguar Rizzo MD Attending Clinician Doctor Unassigned, [place] Attending Clinician Unavailable Kitty Crews Attending Clinician Ame Ramirez MD Attending Clinician Maggie Brooks MD Attending Clinician DR ALAINA PARRY Attending Clinician Unavailable DR ALAINA PARRY Admitting Clinician Unavailable Payers Payer Name Policy Type Policy Number Effective Date Expiration Date Chidi nice [facility] MEDICAID STAR [id number] 2021 00:00:00 [facility] [id number] 2016 CHOICE [place] STAR 00:00:00 Problems Condition Condition Condition Status Onset Resolution Last Treating Co mments Source Name Details Category Date Date Treatment Clinician Date Menorrhagi Menorrhagi Disease Active U nivers a with a with 4-29 ity of regular regular 00:00: [place] cycle cycle 00 Medical Branch 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 Diagnosis per recent hospitali zaiton Abnormal Abnormal Disease Active 2019-07 Unive rs uterine uterine 0-20 ity of bleeding bleeding 00:00: [place] (AUB) (AUB) 00 Medical Branch SANDRA SANDRA Disease Active Univers (generaliz (generaliz 1-11 it y of ed anxiety ed anxiety [place] disorder[place] disorder[place] 00 [facility] Branch Attention Attention Disease Active 2008-07 Overview: Univers deficit deficit 2-22 Formattin ity o f hyperactiv hyperactiv 00:00: g of this [place] ity ity 00 note Medical disorder disorder might be Bran ch (ADHD) (ADHD) different from the original. 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 Allergies, Adverse Reactions, Alerts Allergy Allergy Status Severity Reaction(s) Onset Inactive Treating Comm ents Source Name Type Date Date Clinician No Known DA Active U [facility] 07-09 Allergie 00:00: s 00 No Known DA Active U 2020-07 [facility] 07-25 Allergie 00:00: s 00 Unable DA Active U 2020-07 [facility] to 07-25 Assess 00:00: 00 No Known DA Active [facility] s NO KNOWN Drug Active Univers ALLERGIE Class ity of [facility] Family History Family Member Diagnosis Comments Start Date Stop Date Source Natural brother Psychiatry Universit y of [facility] Natural father Alcohol abuse Univers ity [facility] Natural father Substance abuse Unive rsity of [facility] Natural mother Psychiatry [facility] Social History Social Habit Start Date Stop Date Quantity Comments Source History SDOH University o f Alcohol Comment [place] Med ical Branch Exposure to 2022-03-18 2022-03-28 Not sure University of SARS-CoV-2 00:00:00 09:52:00 [facility] (event) Branch Alcohol intake 2022-03-28 2022-03-28 Lifetime University of 00:00:00 00:00:00 non-drinker [facility] (finding) Branch Tobacco use and 2022-01-17 2022-01-17 Smokeless tobacco Un iversity of exposure 00:00:00 00:00:00 non-user [place] [facility] History SDOH 2020-04-20 2020-04-20 1 University o f Alcohol Frequency 00:00:00 00:00:00 [place] M edical Branch History SDOH 2020-04-20 2020-04-20 99 University o f Alcohol Std 00:00:00 00:00:00 [place] Medical Drinks Branch History [facility] 2020-04-20 2020-04-20 1 Ace o f Alcohol Binge 00:00:00 00:00:00 [place] Medic al Branch Sex Assigned At [birth year] Universit y of 00:00:00 00:00:00 [facility] Smoking Status Start Date Stop Date Source Never smoked tobacco [facility] Medications Ordered Filled Start Stop Current Ordering Indication Dosage Frequency Signature Comments Components Source Medication Medication Date Date Medication? Clinician (SIG) Name Name ARIPiprazol Yes [id number] 300mg 300 mg by Univers e (ABILIFY 9-15 Intramuscu ity of [facility]) 00:00: lar route [place] 300 mg sers 00 once every Me dical month. Branch ARIPiprazol Yes 300mg 300 mg by Univers e (ABILIFY 9-15 Intramuscu ity of [place]) 00:00: lar route [place] 300 mg sers 00 once every Me dical month. Branch ARIPiprazol Yes [id number] 300mg 300 mg by Univers e (ABILIFY 9-15 Intramuscu ity of [place]) 00:00: lar route [place] 300 mg sers 00 once every Me dical month. Branch ARIPiprazol Yes 300mg 300 mg by Univers e (ABILIFY 9-15 Intramuscu ity of [place]) 00:00: lar route [place] 300 mg sers 00 once every Me dical month. Branch ARIPiprazol Yes [id number] 300mg 300 mg by Univers e (ABILIFY 9-15 Intramuscu ity of [facility]) 00:00: lar route [place] 300 mg sers 00 once every Me dical month. Branch ARIPiprazol Yes 300mg 300 mg by Univers e (ABILIFY 9-15 Intramuscu ity of [facility]) 00:00: lar route [place] 300 mg sers 00 once every Me dical month. Branch ARIPiprazol 2021- Yes [id number] 10mg Take 1 U nivers e 10 mg 9-08 10-09 tablet by ity of tablet 00:00: 04:59 mouth in [place] 00 :00 the Medical morning Branch for 30 days. ARIPiprazol 2021- Yes [id number] 10mg Take 1 U nivers e 10 mg 9-08 10-09 tablet by ity of tablet 00:00: 04:59 mouth in [place] 00 :00 the Medical morning Branch for 30 days. ARIPiprazol 2021- Yes [id number] 10mg Take 1 U nivers e 10 mg 9-08 10-09 tablet by ity of tablet 00:00: 04:59 mouth in [place] 00 :00 the [facility] morning [place] for 30 days. ARIPiprazol 2021- Yes [id number] 10mg Take 1 U nivers e 10 mg 9-08 10-09 tablet by ity of tablet 00:00: 04:59 mouth in [place] 00 :00 the Medical morning Branch for 30 days. ARIPiprazol 2021- Yes [id number] 10mg Take 1 U nivers e 10 mg 9-08 10-09 tablet by ity of tablet 00:00: 04:59 mouth in [place] 00 :00 the [facility] morning [place] for 30 days. ARIPiprazol 2021- Yes [id number] 300mg 300 mg by Univers e (ABILIFY 03-09 Intramuscu it y of [facility]) 00:00: 05:59 [place] 300 mg sers 00 :00 once every Me dical month for Branch 90 days. ARIPiprazol 2021- No [id number] 300mg 300 mg by Univers e (ABILIFY 03-09 Intramuscu it y of [facility]) 00:00: 00:00 [place] 300 mg sers 00 :00 once every Me dical month for Branch 90 days. ARIPiprazol 2021- No [id number] 300mg 300 mg by Univers e (ABILI 03-09 Intramuscu it y of [facility]) 00:00: 00:00 [place] route [place] 300 mg sers 00 :00 once every Me dical month for Branch 90 days. ARIPiprazol 2021- No [id number] 300mg 300 mg by [facility] e (ABILI 03-09 Intramuscu it y of [facility]) 00:00: 00:00 [place] route [place] 300 mg sers 00 :00 once every Me dical month for Branch 90 days. QUEtiapine 2021- No [id number] 50mg Take 1 Un [place] 50 mg 01-17 tablet by ity of tablet 00:00: 00:00 mouth in [place] 00 :00 the Medical morning Branch and 1 tablet in the evening. Do all this for 60 days. QUEtiapine 2021- No [id number] 50mg Take 1 Un kayleen 50 mg 01-17 tablet by ity of tablet 00:00: 00:00 mouth in [place] 00 :00 the Medical morning Branch and 1 tablet in the evening. Do all this for 60 days. QUEtiapine 2021- No [id number] 50mg Take 1 Un kayleen 50 mg 01-17 tablet by ity of tablet 00:00: 00:00 mouth in [place] 00 :00 the Medical morning Branch and 1 tablet in the evening. Do all this for 60 days. QUEtiapine 2021-2021- No [id number] 50mg Take 1 Un [place] 50 mg 01-17- tablet by ity of tablet 00:00: 00:00 mouth in [place] 00 :00 the [facility] morning Branch and 1 tablet in the evening. Do all this for 60 days. lithium 2021- No [id number] 300mg Take 1 U nivers carbonate 12-07 tablet by ity of CR 300 mg 00:00: 04:59 mouth at [place] SR tablet 00 :00 bedtime Medical for 90 Branch days. lithium No [id number] 450mg Take 1 U nivers carbonate 12-07- tablet by ity of CR 450 mg 00:00: 04:59 mouth [place] SR tablet 00 :00 every Medical morning Branch for 90 days. lithium No [id number] 300mg Take 1 U nivers carbonate 12-07- tablet by ity of CR 300 mg 00:00: 04:59 mouth at [place] SR tablet 00 :00 bedtime Medical for 90 Branch days. lithium No [id number] 450mg Take 1 U nivers carbonate 12-07- tablet by ity of CR 450 mg 00:00: 04:59 mouth [place] SR tablet 00 :00 every Medical morning Branch for 90 days. lithium No [id number] 300mg Take 1 U nivers carbonate 12-07 tablet by ity of CR 300 mg 00:00: 04:59 mouth at [place] SR tablet 00 :00 bedtime Medical for 90 Branch days. lithium No [id number] 450mg Take 1 U nivers carbonate 12-07 tablet by ity of CR 450 mg 00:00: 04:59 mouth [place] SR tablet 00 :00 every Medical morning Branch for 90 days. lithium No [id number] 300mg Take 1 U nivers carbonate 12-07 tablet by ity of CR 300 mg 00:00: 04:59 mouth at [place] SR tablet 00 :00 bedtime Medical for 90 Branch days. lithium No [id number] 450mg Take 1 U nivers carbonate 12-07- tablet by ity of CR 450 mg 00:00: 04:59 mouth [place] SR tablet 00 :00 every Medical morning Branch for 90 days. miSOPROStoL Yes [id number] 200ug Take 1 Univers 200 mcg 4-29 tablet by ity of tablet 00:00: mouth [place] 00 SEE-INSTRU Medical CTIONS. Branch Take one tab the night before and one tab the morning of procedure miSOPROStoL Yes [id number] 200ug Take 1 Univers 200 mcg 4-29 tablet by ity of tablet 00:00: mouth SEE-INSTRU Medical CTIONS. Branch Take one tab the night before and one tab the morning of procedure miSOPROStoL Yes [id number] 200ug Take 1 Univers 200 mcg 4-29 tablet by ity of tablet 00:00: mouth SEE-INSTR Medical CTIONS. Branch Take one tab the night before and one tab the morning of procedure miSOPROStoL Yes [id number] 200ug Take 1 Univers 200 mcg 4-29 tablet by ity of tablet 00:00: mouth [place] SEE-INSTRU Medical CTIONS. Branch Take one tab the night before and one tab the morning of procedure miSOPROStoL Yes [id number] 200ug Take 1 Univers 200 mcg 4-29 tablet by ity of tablet 00:00: mouth [place] [facility] Medical CTIONS. Branch Take one tab the night before and one tab the morning of procedure Immunizations Ordered Immunization Filled Immunization Date Status Commen ts Source Name Name SARS-COV-2 COVID-19 2022-03-17 Completed Unive rsity of MIKE-SUCROSE VACCINE 00:00:00 [facility] 12 YRS+, BIVALENT Branch 0.3ML, IM, (PFIZER ARITA TOP BOOSTER) SARS-COV-2 COVID-19 2022-03-17 Completed Unive rsity of MIKE-SUCROSE VACCINE 00:00:00 [facility] 12 YRS+, BIVALENT Branch 0.3ML, IM, (PFIZER ARITA TOP BOOSTER) SARS-COV-2 COVID-19 2022-03-17 Completed Unive rsity of MIKE-SUCROSE VACCINE 00:00:00 [facility] 12 YRS+, BIVALENT Branch 0.3ML, IM, (PFIZER ARITA TOP BOOSTER) SARS-COV-2 COVID-19 2022-03-17 Completed Unive rsity of MIKE-SUCROSE VACCINE 00:00:00 [facility] 12 YRS+, BIVALENT Branch 0.3ML, IM, (PFIZER ARITA TOP BOOSTER) SARS-COV-2 COVID-19 2021-06-24 Completed Unive rsity of PFIZER VACCINE 00:00:00 [facility] SARS-COV-2 COVID-19 2021-06-24 Completed Unive rsity of PFIZER VACCINE 00:00:00 [facility] SARS-COV-2 COVID-19 2021-06-24 Completed Unive rsity of PFIZER VACCINE 00:00:00 [facility] SARS-COV-2 COVID-19 2021-06-24 Completed Unive rsity of PFIZER VACCINE 00:00:00 [facility] SARS-COV-2 COVID-19 2021-06-24 Completed Unive rsity of PFIZER VACCINE 00:00:00 [facility] SARS-COV-2 COVID-19 2020-11-21 Completed Unive rsity of PFIZER VACCINE 00:00:00 [facility] SARS-COV-2 COVID-19 2020-11-21 Completed Unive rsity of PFIZER VACCINE 00:00:00 [facility] SARS-COV-2 COVID-19 2020-11-21 Completed Unive rsity of PFIZER VACCINE 00:00:00 [facility] SARS-COV-2 COVID-19 2020-11-21 Completed Unive rsity of PFIZER VACCINE 00:00:00 [facility] SARS-COV-2 COVID-19 2020-11-21 Completed Unive rsity of PFIZER VACCINE 00:00:00 [facility] SARS-COV-2 COVID-19 2020-10-24 Completed Unive rsity of PFIZER VACCINE 00:00:00 [facility] SARS-COV-2 COVID-19 2020-10-24 Completed Unive rsity of PFIZER VACCINE 00:00:00 [facility] SARS-COV-2 COVID-19 2020-10-24 Completed Unive rsity of PFIZER VACCINE 00:00:00 [facility] SARS-COV-2 COVID-19 2020-10-24 Completed Unive rsity of PFIZER VACCINE 00:00:00 [facility] SARS-COV-2 COVID-19 2020-10-24 Completed Unive rsity of PFIZER VACCINE 00:00:00 [facility] Influenza Virus 2020-07-08 Completed Universit y of [...] OMV 2018-10-31 Completed Univ ersity of 00:00:00 [facility] Meningococcal B, OMV 2018-10-31 Completed Univ ersity of 00:00:00 [facility] Meningococcal B, OMV 2018-10-31 Completed Univ ersity of 00:00:00 [facility] Meningococcal B, OMV 2018-10-31 Completed Univ ersity of 00:00:00 [facility] Meningococcal B, OMV 2018-10-31 Completed Univ ersity of 00:00:00 [facility] Influenza Virus 2018-08-29 Completed Universit y of Vaccine Quad .5 mL IM 00:00:00 [place] [facility] Medical 6+ MO Branch Meningococcal B, OMV 2018-08-29 Completed Univ ersity of 00:00:00 [facility] Influenza Virus 2018-08-29 Completed Universit y of Vaccine Quad .5 mL IM 00:00:00 [place] [facility] 6+ MO Branch Meningococcal B, OMV 2018-08-29 Completed Univ ersity of 00:00:00 [facility] Influenza Virus 2018-08-29 Completed Universit y of Vaccine Quad .5 mL IM 00:00:00 [place] [facility] 6+ MO Branch Meningococcal B, OMV 2018-08-29 Completed Univ ersity of 00:00:00 [facility] Influenza Virus 2018-08-29 Completed Universit y of Vaccine Quad .5 mL IM 00:00:00 [place] [facility] 6+ MO Branch Meningococcal B, OMV 2018-08-29 Completed Univ ersity of 00:00:00 [facility] Influenza Virus 2018-08-29 Completed Universit y of Vaccine Quad .5 mL IM 00:00:00 [place] [facility] 6+ MO Branch Meningococcal B, OMV 2018-08-29 Completed Univ ersity of 00:00:00 [facility] Meningococcal 2018-01-17 Completed University of Polysaccharide 00:00:00 [place] [facility] [place] (groups A, C, Y and Branc h W-135) conjugate vaccine (MCV4P) Meningococcal 2018-01-17 Completed University of Polysaccharide 00:00:00 [place] [facility] [place] (groups A, C, Y and Branc h W-135) conjugate vaccine (MCV4P) Meningococcal 2018-01-17 Completed University of Polysaccharide 00:00:00 [place] [facility] [place] (groups A, C, Y and Branc h W-135) conjugate vaccine (MCV4P) Meningococcal 2018-01-17 Completed University of Polysaccharide 00:00:00 [place] [facility] (groups A, C, Y and Branc h W-135) conjugate vaccine (MCV4P) Meningococcal 2018-01-17 Completed University of Polysaccharide 00:00:00 [place] [facility] (groups A, C, Y and Branc h W-135) conjugate vaccine (MCV4P) Influenza Virus 2017-04-12 Completed Universit y of Vaccine Quad IM 3+ 00:00:00 [facility] Influenza Virus 2017-04-12 Completed Universit y of Vaccine Quad IM 3+ 00:00:00 [facility] Influenza Virus 2017-04-12 Completed Universit y of Vaccine Quad IM 3+ 00:00:00 [facility] Influenza Virus 2017-04-12 Completed Universit y of Vaccine Quad IM 3+ 00:00:00 [facility] Influenza Virus 2017-04-12 Completed Universit y of Vaccine Quad IM 3+ 00:00:00 [facility] HPV9 2017-02-01 Completed University of 00:00:00 [facility] HPV9 2017-02-01 Completed University of 00:00:00 [facility] HPV9 2017-02-01 Completed University of 00:00:00 [facility] HPV9 2017-02-01 Completed University of 00:00:00 [facility] HPV9 2017-02-01 Completed University of 00:00:00 [facility] HPV 2016-01-20 Completed University of 00:00:00 [facility] HPV 2016-01-20 Completed University of 00:00:00 [facility] HPV 2016-01-20 Completed University of 00:00:00 [facility] HPV 2016-01-20 Completed University of 00:00:00 [facility] HPV 2016-01-20 Completed University of 00:00:00 [facility] Influenza Virus 2015-07-08 Completed Universit y of Vaccine Quad IM 3+ 00:00:00 [facility] HPV9 2015-07-08 Completed University of 00:00:00 [facility] Influenza Virus 2015-07-08 Completed Universit y of Vaccine Quad IM 3+ 00:00:00 [facility] HPV9 2015-07-08 Completed University of 00:00:00 [facility] Influenza Virus 2015-07-08 Completed Universit y of Vaccine Quad IM 3+ 00:00:00 [facility] HPV9 2015-07-08 Completed University of 00:00:00 [facility] Influenza Virus 2015-07-08 Completed Universit y of Vaccine Quad IM 3+ 00:00:00 [facility] HPV9 2015-07-08 Completed University of 00:00:00 [facility] Influenza Virus 2015-07-08 Completed Universit y of Vaccine Quad IM 3+ 00:00:00 [facility] HPV9 2015-07-08 Completed University of 00:00:00 [facility] Influenza Virus 2014-04-02 Completed Universit y of Vaccine (3+ yrs) 00:00:00 [facility] Influenza Virus 2014-04-02 Completed Universit y of Vaccine (3+ yrs) 00:00:00 [facility] Influenza Virus 2014-04-02 Completed Universit y of Vaccine (3+ yrs) 00:00:00 [facility] Influenza Virus 2014-04-02 Completed Universit y of Vaccine (3+ yrs) 00:00:00 [facility] Influenza Virus 2014-04-02 Completed Universit y of Vaccine (3+ yrs) 00:00:00 [facility] Influenza Virus 2013-05-22 Completed Universit y of Vaccine (3+ yrs) 00:00:00 [facility] Meningococcal 2013-05-22 Completed University of Polysaccharide 00:00:00 [place] [facility] (groups A, C, Y and Branc h W-135) conjugate vaccine (MCV4P) TDAP 2013-05-22 Completed University of 00:00:00 [facility] Influenza Virus 2013-05-22 Completed Universit y of Vaccine (3+ yrs) 00:00:00 [facility] Meningococcal 2013-05-22 Completed University of Polysaccharide 00:00:00 [place] [facility] (groups A, C, Y and Branc h W-135) conjugate vaccine (MCV4P) TDAP 2013-05-22 Completed University of 00:00:00 [facility] Influenza Virus 2013-05-22 Completed Universit y of Vaccine (3+ yrs) 00:00:00 [facility] Meningococcal 2013-05-22 Completed University of Polysaccharide 00:00:00 [place] [facility] (groups A, C, Y and Branc h W-135) conjugate vaccine (MCV4P) TDAP 2013-05-22 Completed University of 00:00:00 [facility] Influenza Virus 2013-05-22 Completed Universit y of Vaccine (3+ yrs) 00:00:00 [facility] Meningococcal 2013-05-22 Completed University of Polysaccharide 00:00:00 [place] [facility] (groups A, C, Y and Branc h W-135) conjugate vaccine (MCV4P) TDAP 2013-05-22 Completed University of 00:00:00 [facility] Influenza Virus 2013-05-22 Completed Universit y of Vaccine (3+ yrs) 00:00:00 [facility] Meningococcal 2013-05-22 Completed University of Polysaccharide 00:00:00 [place] [facility] tor[facility] (groups A, C, Y and Branc h W-135) conjugate vaccine (MCV4P) TDAP 2013-05-22 Completed University of 00:00:00 [facility] Influenza Virus 2012-06-13 Completed Universit y of Vaccine 00:00:00 [facility] Influenza Virus 2012-06-13 Completed Universit y of Vaccine 00:00:00 [facility] Influenza Virus 2012-06-13 Completed Universit y of Vaccine 00:00:00 [facility] Influenza Virus 2012-06-13 Completed Universit y of Vaccine 00:00:00 [facility] Influenza Virus 2012-06-13 Completed Universit y of Vaccine 00:00:00 [facility] Influenza Virus 2011-05-18 Completed Universit y of Vaccine 00:00:00 [facility] Influenza Virus 2011-05-18 Completed Universit y of Vaccine 00:00:00 [facility] Influenza Virus 2011-05-18 Completed Universit y of Vaccine 00:00:00 [facility] Influenza Virus 2011-05-18 Completed Universit y of Vaccine 00:00:00 [facility] Influenza Virus 2011-05-18 Completed Universit y of Vaccine 00:00:00 [facility] Influenza Virus 2010-05-26 Completed Universit y of Vaccine 00:00:00 [facility] Influenza Virus 2010-05-26 Completed Universit y of Vaccine 00:00:00 [facility] Influenza Virus 2010-05-26 Completed Universit y of Vaccine 00:00:00 [facility] Influenza Virus 2010-05-26 Completed Universit y of Vaccine 00:00:00 [facility] Influenza Virus 2010-05-26 Completed Universit y of Vaccine 00:00:00 [facility] Influenza Virus 2009-06-23 Completed Universit y of Vaccine 00:00:00 [facility] Influenza Virus 2009-06-23 Completed Universit y of Vaccine 00:00:00 [facility] Influenza Virus 2009-06-23 Completed Universit y of Vaccine 00:00:00 [facility] Influenza Virus 2009-06-23 Completed Universit y of Vaccine 00:00:00 [facility] Influenza Virus 2009-06-23 Completed Universit y of Vaccine 00:00:00 [facility] Influenza Virus 2009-05-20 Completed Universit y of Vaccine 00:00:00 [facility] Influenza Virus 2009-05-20 Completed Universit y of Vaccine 00:00:00 [facility] Influenza Virus 2009-05-20 Completed Universit y of Vaccine 00:00:00 [facility] Influenza Virus 2009-05-20 Completed Universit y of Vaccine 00:00:00 [facility] Influenza Virus 2009-05-20 Completed Universit y of Vaccine 00:00:00 [facility] Influenza Virus 2007-06-01 Completed Universit y of Vaccine 00:00:00 [facility] Influenza Virus 2007-06-01 Completed Universit y of Vaccine 00:00:00 [facility] Influenza Virus 2007-06-01 Completed Universit y of Vaccine 00:00:00 [facility] Influenza Virus 2007-06-01 Completed Universit y of Vaccine 00:00:00 [facility] Influenza Virus 2007-06-01 Completed Universit y of Vaccine 00:00:00 [facility] DTAP 2006-05-24 Completed University of 00:00:00 [facility] Proquad 2006-05-24 Completed University of (MMR/VARICELLA) 00:00:00 [facility] Polio (IPV/OPV) 2006-05-24 Completed Universit y of 00:00:00 [facility] DTAP 2006-05-24 Completed University of 00:00:00 [facility] Proquad 2006-05-24 Completed University of (MMR/VARICELLA) 00:00:00 [facility] Polio (IPV/OPV) 2006-05-24 Completed Universit y of 00:00:00 [facility] DTAP 2006-05-24 Completed University of 00:00:00 [facility] Proquad 2006-05-24 Completed University of (MMR/VARICELLA) 00:00:00 [facility] Polio (IPV/OPV) 2006-05-24 Completed Universit y of 00:00:00 [facility] DTAP 2006-05-24 Completed University of 00:00:00 [facility] Proquad 2006-05-24 Completed University of (MMR/VARICELLA) 00:00:00 [facility] Polio (IPV/OPV) 2006-05-24 Completed Universit y of 00:00:00 [facility] DTAP 2006-05-24 Completed University of 00:00:00 [facility] Proquad 2006-05-24 Completed University of (MMR/VARICELLA) 00:00:00 [facility] Polio (IPV/OPV) 2006-05-24 Completed Universit y of 00:00:00 [facility] HEPATITIS A 2005-05-19 Completed University of 00:00:00 [facility] Influenza Virus 2005-05-19 Completed Universit y of Vaccine 00:00:00 [facility] HEPATITIS A 2005-05-19 Completed University of 00:00:00 [facility] Influenza Virus 2005-05-19 Completed Universit y of Vaccine 00:00:00 [facility] HEPATITIS A 2005-05-19 Completed University of 00:00:00 [facility] Influenza Virus 2005-05-19 Completed Universit y of Vaccine 00:00:00 [facility] HEPATITIS A 2005-05-19 Completed University of 00:00:00 [facility] Influenza Virus 2005-05-19 Completed Universit y of Vaccine 00:00:00 [facility] HEPATITIS A 2005-05-19 Completed University of 00:00:00 [facility] Influenza Virus 2005-05-19 Completed Universit y of Vaccine 00:00:00 [facility] HEPATITIS A 2004-05-17 Completed University of 00:00:00 [facility] HEPATITIS A 2004-05-17 Completed University of 00:00:00 [facility] HEPATITIS A 2004-05-17 Completed University of 00:00:00 [facility] HEPATITIS A 2004-05-17 Completed University of 00:00:00 [facility] HEPATITIS A 2004-05-17 Completed University of 00:00:00 [facility] Polio (IPV/OPV) 2003-08-21 Completed Universit y of 00:00:00 [facility] Polio (IPV/OPV) 2003-08-21 Completed Universit y of 00:00:00 [facility] Polio (IPV/OPV) 2003-08-21 Completed Universit y of 00:00:00 [facility] Polio (IPV/OPV) 2003-08-21 Completed Universit y of 00:00:00 [facility] HIB 4 Dose Schedule 2003-05-22 Completed Unive rsity of 00:00:00 [facility] MMR 2003-05-22 Completed University of 00:00:00 [facility] Pneumococcal 7 2003-05-22 Completed University of Conjugate, PCV7 00:00:00 [place] [facility] (Prevnar7) [facility] Varicella 2003-05-22 Completed University of (varivax)(chicken 00:00:00 [place] [facility] pox) [facility] HIB 4 Dose Schedule 2003-05-22 Completed Unive rsity of 00:00:00 [facility] MMR 2003-05-22 Completed University of 00:00:00 [facility] Pneumococcal 7 2003-05-22 Completed University of Conjugate, PCV7 00:00:00 [place] [facility] (Prevnar7) [facility] Varicella 2003-05-22 Completed University of (varivax)(chicken 00:00:00 [place] [facility] pox) [facility] HIB 4 Dose Schedule 2003-05-22 Completed Unive rsity of 00:00:00 [facility] MMR 2003-05-22 Completed University of 00:00:00 [facility] Pneumococcal 7 2003-05-22 Completed University of Conjugate, PCV7 00:00:00 [place] [facility] (Prevnar7) [facility] Varicella 2003-05-22 Completed University of (varivax)(chicken 00:00:00 [place] [facility] pox) [facility] HIB 4 Dose Schedule 2003-05-22 Completed Unive rsity of 00:00:00 [facility] MMR 2003-05-22 Completed University of 00:00:00 [facility] Pneumococcal 7 2003-05-22 Completed University of Conjugate, PCV7 00:00:00 [place] [facility] (Prevnar7) [facility] Varicella 2003-05-22 Completed University of (varivax)(chicken 00:00:00 [place] [facility] pox) [facility] DTAP 2003-01-01 Completed University of 00:00:00 [facility] HIB 4 Dose Schedule 2003-01-01 Completed Unive rsity of 00:00:00 [facility] Hep B, Adol or Pedi 2003-01-01 Completed Unive rsity of Dosage 00:00:00 [facility] Pneumococcal 7 2003-01-01 Completed University of Conjugate, PCV7 00:00:00 [place] [facility] (Prevnar7) [facility] DTAP 2003-01-01 Completed University of 00:00:00 [facility] HIB 4 Dose Schedule 2003-01-01 Completed Unive rsity of 00:00:00 [facility] Hep B, Adol or Pedi 2003-01-01 Completed Unive rsity of Dosage 00:00:00 [facility] Pneumococcal 7 2003-01-01 Completed University of Conjugate, PCV7 00:00:00 [place] [facility] (Prevnar7) [facility] DTAP 2003-01-01 Completed University of 00:00:00 [facility] HIB 4 Dose Schedule 2003-01-01 Completed Unive rsity of 00:00:00 [facility] Hep B, Adol or Pedi 2003-01-01 Completed Unive rsity of Dosage 00:00:00 [facility] Pneumococcal 7 2003-01-01 Completed University of Conjugate, PCV7 00:00:00 [place] [facility] (Prevnar7) [facility] DTAP 2003-01-01 Completed University of 00:00:00 [facility] HIB 4 Dose Schedule 2003-01-01 Completed Unive rsity of 00:00:00 [facility] Hep B, Adol or Pedi 2003-01-01 Completed Unive rsity of Dosage 00:00:00 [facility] Pneumococcal 7 2003-01-01 Completed University of Conjugate, PCV7 00:00:00 [place] [facility] (Prevnar7) [facility] DTAP 2002 Completed University of 00:00:00 [facility] HIB 4 Dose Schedule 2002 Completed Unive rsity of 00:00:00 [facility] Pneumococcal 7 2002 Completed University of Conjugate, PCV7 00:00:00 [place] [facility] (Prevnar7) [facility] Polio (IPV/OPV) 2002 Completed Universit y of 00:00:00 [facility] DTAP 2002 Completed University of 00:00:00 [facility] HIB 4 Dose Schedule 2002 Completed Unive rsity of 00:00:00 [facility] Pneumococcal 7 2002 Completed University of Conjugate, PCV7 00:00:00 [place] [facility] (Prevnar7) [facility] Polio (IPV/OPV) 2002 Completed Universit y of 00:00:00 [facility] DTAP 2002 Completed University of 00:00:00 [facility] HIB 4 Dose Schedule 2002 Completed Unive rsity of 00:00:00 [facility] Pneumococcal 7 2002 Completed University of Conjugate, PCV7 00:00:00 [facility] ical (Prevnar7) Branch Polio (IPV/OPV) 2002 Completed Universit y of 00:00:00 [facility] DTAP 2002 Completed University of 00:00:00 [facility] HIB 4 Dose Schedule 2002 Completed Unive rsity of 00:00:00 [facility] Pneumococcal 7 2002 Completed University of Conjugate, PCV7 00:00:00 [facility] ical (Prevnar7) Branch Polio (IPV/OPV) 2002 Completed Universit y of 00:00:00 [facility] DTAP 2002 Completed University of 00:00:00 [facility] HIB 4 Dose Schedule 2002 Completed Unive rsity of 00:00:00 [facility] Hep B, Adol or Pedi 2002 Completed Unive rsity of Dosage 00:00:00 [facility] Polio (IPV/OPV) 2002 Completed Universit y of 00:00:00 [facility] DTAP 2002 Completed University of 00:00:00 [facility] HIB 4 Dose Schedule 2002 Completed Unive rsity of 00:00:00 [facility] Hep B, Adol or Pedi 2002 Completed Unive rsity of Dosage 00:00:00 [facility] Polio (IPV/OPV) 2002 Completed Universit y of 00:00:00 [facility] DTAP 2002 Completed University of 00:00:00 [facility] HIB 4 Dose Schedule 2002 Completed Unive rsity of 00:00:00 [facility] Hep B, Adol or Pedi 2002 Completed Unive rsity of Dosage 00:00:00 [facility] Polio (IPV/OPV) 2002 Completed Universit y of 00:00:00 [facility] DTAP 2002 Completed University of 00:00:00 [facility] HIB 4 Dose Schedule 2002 Completed Unive rsity of 00:00:00 [facility] Hep B, Adol or Pedi 2002 Completed Unive rsity of Dosage 00:00:00 [facility] Polio (IPV/OPV) 2002 Completed Universit y of 00:00:00 [facility] Hep B, Adol or Pedi 2002 Completed Unive rsity of Dosage 00:00:00 [facility] Hep B, Adol or Pedi 2002 Completed Unive rsity of Dosage 00:00:00 [facility] Hep B, Adol or Pedi 2002 Completed Unive rsity of Dosage 00:00:00 [facility] Hep B, Adol or Pedi 2002 Completed Unive rsity of Dosage 00:00:00 [facility] Hep B, Adol or Pedi 2002 Completed Unive rsity of Dosage 00:00:00 [facility] Vital Signs Vital Name Observation Time Observation Value Comments Source Height 2020-09-25 23:56:00 165.1 CM Weight 2020-09-25 23:56:00 2.69 KG Systolic blood 2022-03-28 14:54:00 116 mm[Hg] Univer sity of pressure [facility] Diastolic blood 2022-03-28 14:54:00 87 mm[Hg] Unive rsity of pressure [facility] Heart rate 2022-03-28 14:54:00 113 /[facility] Respiratory rate 2022-03-28 14:54:00 18 /min Univ ersity of [facility] Body height 2022-03-28 14:54:00 160 cm [facility] Body weight 2022-03-28 14:54:00 51.71 kg [facility] BMI 2022-03-28 14:54:00 20.19 kg/m2 [facility] Body temperature 2022-02-24 18:37:00 37 Linda [facility] Body weight 2022-02-24 18:37:00 51.801 kg Universi [facility] BMI 2022-02-24 18:37:00 20.23 kg/m2 [facility] Systolic blood 2022-02-21 12:51:00 133 mm[Hg] Univer sit of pressure [facility] Diastolic blood 2022-02-21 12:51:00 49 mm[Hg] [facility] Heart rate 2022-02-21 12:51:00 108 /min [facility] Respiratory rate 2022-02-21 12:51:00 18 /min [facility] Body height 2022-02-21 12:51:00 160 cm [facility] Oxygen saturation in 2022-01-24 00:45:00 98 /min [facility] Arterial blood by [facility] Pulse oximetry Branch Head 2009-07-13 18:51:00 51 cm Universi of Occipital-frontal [facility] circumference by [place] [facility] measure Procedures Procedure Date / Time Performing Clinician Source Performed SARS-COV-2 COVID-19 2022-03-17 16:49:[address] [facility] MIKE-SUCROSE VACCINE 12 [facility] YRS+, BIVALENT 0.3ML, IM, (PFIZER ARITA TOP BOOSTER) SARS-COV-2 COVID-19 2022-03-17 16:49:14 [facility] MIKE-SUCROSE VACCINE 12 [facility] YRS+, BIVALENT 0.3ML, IM, (PFIZER ARITA TOP BOOSTER) XR PELVIS 3+ VW 2022-02-24 18:13:00 Jaguar Rizzo o f [facility] EXTERNAL PROVIDER RECORDS 2022-02-22 05:01:00 Doctor Fidel, [facility] EMERGENCY SERVICES 2022-01-23 05:01:00 Doctor Fidel [facility] AGREEMENTS AND [facility] AUTHORIZATIONS EMERGENCY DEPARTMENT 2022-01-23 05:01:00 Doctor Fidel, [facility] DOCUMENTS [facility] Encounters Start End Encounter Admission Attending Care Care Encounter Source Date/Time Date/Time Type Type Clinicians Facility Department ID 2021-11-02 Outpatient [facility] [id number] [place] 11:00:[id number] [facility] 2021-07-09 Inpatient [facility] [id number] [facility] 12:46:00 14 2021-05-25 Inpatient [facility] [id number] [facility] 23:19:00 94 2022-03-28 2022-03-28 Outpatient R REYNALDO [facility] [id number] Univers 10:15:00 12:05:24 MIKE itadrian o f [facility] 2022-03-28 2022-03-28 Travel 1.2.840.1 1.2.434.379 [id number] Univers 00:00:00 00:00:00 92863.1.1 350.1.13.10 ity of 3.104.2.7 [place].3.698 [place].1317[place] 084.8 Medica l .8 [place] 2022-03-17 2022-03-17 Imm/Inj Sol Mack P 1.2.840.1 [id number] Univers 11:30:00 12:25:54 Visit Janice Orosco 01945.1.1 ity of 3.104.2.7 [place] .3.601392 Medica l .8 [place] 2022-03-17 2022-03-17 [facility] [id number] Univers 11:30:00 11:30:00 SOL ity of [facility] 2022-03-17 2022-03-17 Outpatient R [facility] [id number] Univers 11:30:00 11:30:00 [id number] ity [facility] 2022-03-17 2022-03-17 Travel 1.2.840.1 1.2.675.458 [id number] Univers 00:00:00 00:00:00 59645.1.1 350.1.13.10 ity of 3.104.2.7 4.[place]7.3.698 [place] .3.818059 084.8 Medica l .8 Branch 2022-02-24 2022-02-24 [facility], 1.2.840.0 [id number] [facility] 13:02:19 23:59:00 Encounter Jaguar 97926.1.1 it y of 3.104.2.7 [place] .3.107771 Medica l .8 Branch 2022-02-24 2022-02-24 [facility], 1.2.840.3 [id number] [facility] 13:00:00 14:33:28 Visit Jaguar 72522.1.1 ity of 3.104.2.7 [place] .3.956153 Medica l .8 Branch 2022-02-24 2022-02-24 Travel 1.2.840.1 1.2.599.821 [id number] Univers 00:00:00 00:00:00 86327.1.1 350.1.13.10 ity of 3.104.2.7 4.[place]7.3.698 [place] .3.560067 084.8 Medica l .8 Branch 2022-02-22 2022-02-22 Orders Doctor 1.2.840.7 [id number] Univers 00:00:00 00:00:00 Only Unassigned, 09483.1.1 ity of [place] 3.104.2.7 [place] .3.531362 Medica l .8 Branch 2022-02-21 2022-02-21 Travel 1.2.840.1 1.2.049.084 [id number] Univers 00:00:00 00:00:00 08946.1.1 350.1.13.10 ity of 3.104.2.7 4.[place]7.3.698 [place] .3.065593 084.8 Medica l .8 Branch 2022-01-23 2022-01-23 Emergency Kitty Kessler 1.2.840.9 [id number] Univers 19:42:00 21:04:00 Bree 06604.1.1 ity of 3.104.2.7 [place] .3.807943 Medica l .8 Branch 2022-01-23 2022-01-23 Travel 1.2.840.1 1.2.530.775 [id number] Univers 00:00:00 00:00:00 24697.1.1 350.1.13.10 ity of 3.104.2.7 4.[place].7.3.698 [place] .3.594631 084.8 Medica l .8 Branch 2022-01-17 2022-01-17 Travel 1.2.840.1 1.2.331.715 [id number] Univers 00:00:00 00:00:00 59524.1.1 350.1.13.10 ity of 3.104.2.7 4.[place]7.3.698 [place] .3.652096 084.8 Medica l .8 [place] 2021-12-31 2021-12-31 Office Fish, Ame 1.2.840.1 [id number] Univers 16:00:00 17:22:54 Visit Maggie rBooks 09475.1.1 ity of 3.104.2.7 [place] .3.019771 Medica l .8 Branch 2021-12-31 2021-12-31 Travel 1.2.840.1 1.2.239.623 [id number] Univers 00:00:00 00:00:00 27095.1.1 350.1.13.10 ity of 3.104.2.7 4.[place].7.3.698 [place] .3.482313 084.8 Medica l .8 Branch 2021-12-20 2021-12-20 Travel 1.2.840.1 1.2.394.919 [id number] Univers 00:00:00 00:00:00 30009.1.1 350.1.13.10 ity of 3.104.2.7 4.[place].7.3.698 [place] .3.229580 084.8 Medica l .8 [place] 2021-07-09 2021-07-09 Emergency [facility] [id number] [facility] 12:46:00 12:46:00 14 2021-05-25 2021-05-25 Emergency [facility] [id number] [facility] 23:19:00 23:19:00 94 2020-09-25 2020-09-26 Emergency Suzi PARRY [facility] [id number] [facility] 23:49:00 10:04:00 [facility] Results Test Description Test Time Test Comments Results Result Comments Source Coronavirus NAAT, COVD19 2021-07-09 14:05:00 Test Item Value Reference Range Interpretation Comme nts Coronavirus NAAT, COVD19 (test code = SARS results, including Patie nt Name, [id number]) or MRN, were Coronavirus NAAT, COVD19 (test code = ical-devices/ihoyamqgl-vaq-ry thorizat ZQGNHZT6IJNL8.1) ions. SARS-CoV-2 NAAT Result: (test code = Positive by RT-PCR A SARS-CoV-2 NAAT Result:) COVID-19 Status: AsymptomaticHCG, Urine Qual (LAB)2021-07-09 14:05:00 Test Item Value Reference Range Interpretation Comments HCG, Urine, Qual (test code = HCGU) Negative Negative Drug Screen,[id number] 14:05:00 Test Item Value Reference Range Interpretation [...] Negative code = UPROP) UA, Urinalysis w [id number] 14:05:00 Test Item Value Reference Range Interpretation Comments Color,Urine (test code = Yellow Yellow UCOL) Clarity,Urine (test code = Clear Clear UCLAR) Ph, Urine (test code = UPH) 8.5 5.0-8.0 H Specific Sargents,Urine 1.020 1.005-1.030 N (test code = USG) [...] Seen A UBACT) Complete Blood Count Auto [id number] 13:20:00 Test Item Value Reference Range Interpretation [...] code = NRBCP) 0 % Comprehensive Metabolic [id number] 13:20:00 Test Item Value Reference Range Interpretation [...] 72 U/L 46-116 N = ALP) Ethanol [id number] 13:20:00 Test Item Value Reference Range Interpretation [...] = HCGU) Negative Negative UA, Urinalysis Rflx Cult/[id number] 00:20:00 Test Item Value Reference Range Interpretation Comments Color,Urine (test code = Yellow Yellow UCOL) Clarity,Urine (test code = Clear Clear UCLAR) PH,Urine (test code = 7.5 5.5-8.5 UPH.XX) Specific S[place]ents,Urine 1.020 1.005-1.030 N (test code = USG) [...] cells/uL Negative (test code = ULEU) Urine [id number] 00:20:00 Test Item Value Reference Range Interpretation Comments RBC,Urine (test code = URBC.XX) 0-5 /HPF None Seen WBC,Urine (test code = UWBC.XX) 6-10 /HPF None Seen A Squamous Epithelial Cell,Urine 74-200 /HPF None Seen A (test code = USQEPI.XX) Bacteria,Urine (test code = Moderate /HPF None Seen A UBACT) Drug Screen,[id number] 00:20:00 Test Item Value Reference Range Interpretation [...] code = UPROP) Complete Blood Count Auto [id number] 00:09:00 Test Item Value Reference Range Interpretation [...] code = NRBCP) 0 % Comprehensive Metabolic [id number] 00:09:00 Test Item Value Reference Range Interpretation [...] 83 U/L 46-116 N = ALP) Ethanol [id number] 00:09:00 Test Item Value Reference Range Interpretation Comments Ethanol (test code < 3 mg/dL The pharm acological = ETOH) response to blo od alcohol levels mayvary from individual to i ndividual. The fatal ezio ntrationhas been reported t o be >400mg/dL. Coronavirus PCR, COVID19 [id number] 00:08:00 Test Item Value Reference Range Interpretation Comments Coronavirus PCR, For use under Emergency COVID19 Rapid (test Use Authorization (EUA) code = SARSCOV2) only. Coronavirus PCR, Reference Range: COVID19 Rapid (test Negative code = GMDAQDQ93.1) SARS-CoV-2 PCR Result: Negative by RT-PCR (test code = SARS-CoV-2 PCR Result:) COVID-19 Status: AsymptomaticCARBAMAZEPHINE (TEGRETOL)2020-09-26 08:42:00 Test Item Value Reference Range Interpretation Comments CARBAMAZPN (test code = 98A) 19.3 ug/mL 4.0-12.0 HH CARBAMAZEPHINE (TEGRETOL)2020-09-26 05:04:00 Test Item Value Reference Range Interpretation Comments CARBAMAZPN (test code = 98A) 20.1 ug/mL 4.0-12.0 HH URINALYSIS WITH [id number] 02:45:00 Test Item Value Reference Range Interpretation [...] code = USPERM) /HPF NONE DRUGS OF [id number] 02:43:00 Test Item Value Reference Range Interpretation [...] the FDA and the [employer] (CAP) are more stringent than those required for this test. Therefore, the result should be interpreted with caution and close attention to other clinical and epidemiological data PRO TIME AND [id number] 00:51:00 Test Item Value Reference Range Interpretation [...] Heparin. Order Code is ANTI-XA COMPREHENSIVE METABOLIC [id number] 00:47:00 Test Item Value Reference Range Interpretation [...] as normal/abnormal . GFR 154 See_Comment [Automated GHANAIAN (test mL/min/1.73m\S\2 message] The code = GFRAA) [...] to interpret this result as normal/abnormal . [id number] 00:47:00 Test Item Value Reference Range Interpretation Comments ACETAMINPH (test code = 94M) 3.6 ug/mL 10.0-30.0 L CARDIAC [id number] 00:47:00 Test Item Value Reference Range Interpretation [...] interpret th is result as normal/abnormal . [id number] 00:42:00 Test Item Value Reference Range Interpretation Comments SALICYLATE (test code = 94B) <1.7 mg/dL 2.8-20.0 L SERUM [id number] 00:38:00 Test Item Value Reference Range Interpretation [...]
--- NOTE | 2022-03-30 21:42 | RAD REPORT ---
EXAM DESCRIPTION: RAD - Foot Left 3 View - 03/30/2022 9:05 pm CLINICAL HISTORY: Left Foot pain status post injury FINDINGS: No fracture or dislocation is seen.
--- NOTE | 2022-03-30 22:09 | ER ---
Nurse's Notes [facility] Name: Vanda Pompa Age: 21 yrs Sex: Female : 2000 Arrival Date: 03/30/2022 Time: 20:24 Bed 9 Private MD: Diagnosis: Sprain of foot Presentation: 03/30 20:34 Chief complaint: Patient states: "I feel out of a high chair and I scrapped my foot and tw5 now I cannot feel my pinky toe. It on my left foot.". Coronavirus screen: Vaccine status: Patient reports receiving the 2nd dose of the covid vaccine. [employer]. Ebola Screen: Patient negative for fever greater than or equal to 101.5 degrees Fahrenheit, and additional compatible Ebola Virus Disease symptoms Patient denies exposure to infectious person. Patient denies travel to an Ebola-affected area in the 21 days before illness onset. Initial Sepsis Screen: Does the patient meet any 2 criteria? Yes Does the patient have a suspected source of infection? No. Patient's initial sepsis screen is negative. Risk Assessment: Do you want to hurt yourself or someone else? Patient reports no desire to harm self or others. Onset of symptoms was March 30, 2022 at 19:50. 20:34 Method Of Arrival: Wheelchair tw5 20:34 Acuity: FREDY 4 tw5 Triage Assessment: 20:37 General: Appears in no apparent distress. Behavior is calm, cooperative. Pain: Pain tw5 currently is 3 out of 10 on a pain scale. HEEL REDUCER: 20:37 LMP 03/30/2022 tw5 Historical: - Allergies: 20:37 No Known Allergies; tw5 - PMHx: 20:37 Asthma; Bipolar disorder; depressive disorder; tw5 - PSHx: 20:37 ear surgery; tw5 - Immunization history:: Flu vaccine is up to date. - Social history:: Smoking status: Patient reports the use of cigarette tobacco products, denies chronic smoking, but will smoke occasionally. Screenin:57 Abuse screen: Denies threats or abuse. Denies injuries from another. Nutritional hb screening: No deficits noted. Tuberculosis screening: No symptoms or risk factors identified. Fall Risk None identified. Assessment: 21:59 General: Appears in no apparent distress. Behavior is calm, cooperative. Neuro: Level hb of Consciousness is awake, alert, obeys commands, Oriented to person, place, time, situation. Cardiovascular: Patient's skin is warm and dry. Respiratory: Respiratory effort is even, unlabored, Respiratory pattern is regular, symmetrical. Vital Signs: 20:34 BP 108 / 71; Pulse 102; Resp 18; Temp 98.4; Pulse Ox 100% ; Weight 56.7 kg; Height 5 tw5 ft. 3 in. (160.02 cm); Pain 3/10; 20:34 Body Mass Index 22.14 (56.70 kg, 160.02 cm) tw5 ED Course: 20:24 Patient arrived in ED. jj6 20:29 Shaggy Mars PA is PHCP. [facility] 20:29 Mee Paredes MD is Attending Physician. [facility] 20:37 Triage completed. tw5 20:37 Arm band placed on right wrist. tw5 20:44 Haven Mccall is Primary Nurse. tw5 21:07 Foot Left 3 View XRAY In Process Unspecified. EDMS 21:57 Patient has correct armband on for positive identification. hb 21:59 No provider procedures requiring assistance completed. Patient did not have IV access hb during this emergency room visit. 22:08 Isreal Cutler DPM is Referral Physician. eros Administered Medications: No medications were administered Medication: 21:59 VIS not applicable for this client. hb Outcome: 22:08 Discharge ordered by . eros 22:17 Discharged to home ambulatory. tw5 22:17 Condition: stable 22:17 Discharge instructions given to patient, Instructed on discharge instructions, follow up and referral plans. Demonstrated understanding of instructions, follow-up care. 22:17 Patient left the ED. tw5 Signatures: Dispatcher [employer] EDMS Shaggy Mars PA PA jmm Baxter, Heather, RN RN Haven Mayen tw5 Ruchi Andrews jj6
--- NOTE | 2022-03-30 22:09 | EDPHYS ---
Physician Documentation [facility] Name: Vanda Pompa Age: 21 yrs Sex: Female : 2000 Arrival Date: 03/30/2022 Time: 20:24 Bed 9 Private MD: ED Physician Mee Paredes HPI: 03/30 20:46 This 21 yrs old Female presents to ER via Wheelchair with complaints of Foot Injury. jmm 20:46 The patient presents with an injury, pain. Onset: The symptoms/episode began/occurred jmm acutely, today. Modifying factors: The symptoms are alleviated by nothing. the symptoms are aggravated by nothing. Associated signs and symptoms: Pertinent positives: swelling. Patient complains of left foot pain after falling from a chair. Denies other injury. Denies injuring her head. . [employer] GAS: 20:37 LMP 03/30/2022 tw5 Historical: - Allergies: 20:37 No Known Allergies; tw5 - PMHx: 20:37 Asthma; Bipolar disorder; depressive disorder; tw5 - PSHx: 20:37 ear surgery; tw5 - Immunization history:: Flu vaccine is up to date. - Social history:: Smoking status: Patient reports the use of cigarette tobacco products, denies chronic smoking, but will smoke occasionally. ROS: 20:46 Constitutional: Negative for fever, chills, and weight loss, Cardiovascular: Negative jmm for chest pain, palpitations, and edema, Respiratory: Negative for shortness of breath, cough, wheezing, and pleuritic chest pain. 20:46 MS/extremity: Positive for pain, swelling. 20:46 All other systems are negative. Exam: 20:46 Constitutional: This is a well developed, well nourished patient who is awake, alert, jmm and in no acute distress. Head/Face: atraumatic. Eyes: EOMI, no conjunctival erythema appreciated ENT: Moist Mucus Membranes Neck: Trachea midline, Supple Chest/axilla: Normal chest wall appearance and motion. Cardiovascular: Regular rate and rhythm. No edema appreciated Respiratory: Normal respirations, no respiratory distress appreciated Abdomen/GI: Non distended Back: Normal ROM Skin: General appearance color normal 20:46 Musculoskeletal/extremity: swelling noted to the left foot, ttp, compartments are soft, NVI. 20:46 Skin: Appearance: Color: normal in color. 20:46 Neuro: Orientation: is normal, Mentation: is normal, Memory: is normal. 20:46 Psych: Behavior/mood is pleasant, cooperative. Vital Signs: 20:34 BP 108 / 71; Pulse 102; Resp 18; Temp 98.4; Pulse Ox 100% ; Weight 56.7 kg; Height 5 tw5 ft. 3 in. (160.02 cm); Pain 3/10; 20:34 Body Mass Index 22.14 (56.70 kg, 160.02 cm) tw5 MDM: 20:46 Patient medically screened. [facility] 22:06 Data reviewed: vital signs, nurses notes. [facility] 22:06 Counseling: I had a detailed discussion with the patient and/or guardian regarding: the [facility] historical points, exam findings, and any diagnostic results supporting the discharge/admit diagnosis, radiology results, the need for outpatient follow up, to return to the emergency department if symptoms worsen or persist or if there are any questions or concerns that arise at home. 03/30 20:46 Order name: Foot Left 3 View XRAY; Complete Time: 21:47 [facility] 03/30 22:08 Order name: Dae wrap-joint; Complete Time: 22:15 [facility] Administered Medications: No medications were administered Disposition Summary: 03/30/22 22:08 Discharge Ordered Location: Home [facility] Condition: Stable [facility] Diagnosis - Sprain of foot [facility] Followup: [facility] - With: Isreal Cutler DPM - When: 2 - 3 days - Reason: Recheck today's complaints, Continuance of care, Re-evaluation by your physician Discharge Instructions: - Discharge Summary Sheet [facility] - Foot Sprain [facility] Forms: - Medication Reconciliation Form [facility] - Thank You Letter [facility] - Antibiotic Education [facility] - Prescription Opioid Use [facility] Prescriptions: - Diclofenac Sodium 75 mg Oral Tablet Sustained Release - take 1 tablet by ORAL route 2 times per day; 30 tablet; Refills: 0, Product [facility] Selection Permitted Signatures: Dispatcher [employer] EDShaggy Zavaleta PA PA jmm Wood, Tiffany tw5
[2022-04-01 13:19] VITALS: BP 108/71; TEMP 98.4; O2SAT 100
== END 2022-03-30 22:17 | disposition home or self-care (01) ==
LOC: ER 20:21
DX: S93.602A Unspecified sprain of left foot, initial encounter (principal)
CPT/HCPCS: 99283

== ENCOUNTER 2022-04-01 16:30 | Emergency (ER) | payer OTHER ==
--- OUTSIDE RECORDS SUMMARY | 2022-04-01 16:38 | XMS REPORT | Continuity of Care Document ---
:2000 Author Organization [facility] t Address [address] [place] [address] Care Team Providers Name Role Phone Pcp, Patient Does Not Have A Primary Care Physician [id number] HANDY DOMINGUEZ Attending Clinician Unavailable DEONNA MONTES Attending Clinician Unavailable Deonna Ferrell S Attending Clinician Doctor Unassigned, [place] Attending Clinician Unavailable MIKE JACOBS Attending Clinician Unavailable Sol Mack MD Attending Clinician Vaccine, Janice Talbert Attending Clinician Unavailable SOL MACK Attending Clinician Unavailable Jaguar Rizzo MD Attending Clinician Kitty Crews Attending Clinician Ame Ramirez MD Attending Clinician Maggie Brooks MD Attending Clinician DR ALAINA PARRY Attending Clinician Unavailable DR ALAINA PARRY Admitting Clinician Unavailable Payers Payer Name Policy Type Policy Number Effective Date Expiration Date S ource [facility] MEDICAID STAR [id number] 2021 00:00:00 [facility] [id number] 2016 CHOICE [place] STAR 00:00:00 Problems Condition Condition Condition Status Onset Resolution Last Treating Co mments Source Name Details Category Date Date Treatment Clinician Date Menorrhagi Menorrhagi Disease Active U nivang a with a with 4-29 ity of regular regular 00:00: [place] cycle cycle 00 Medical Branch 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- [place] of depressive depressive [place] disorder disorder 00 Medica l Branch Bipolar Bipolar Disease Active Overview: Univ ers disorder, disorder, 5-19 Formattin i ty of in partial in partial 00:00: g of this [place] remission, remission, 00 note Me dical most most might be Branch 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 Diagnosis per recent hospitali zaiton Abnormal Abnormal Disease Active 2019-07 Unive rs uterine uterine 0-20 ity of bleeding bleeding 00:00: [place] (AUB) (AUB) 00 Medical Branch SANDRA SANDRA Disease Active Univers (generaliz (generaliz -11 it y of ed anxiety ed anxiety 00:[place] disorder[place] disorder[place] 00 [facility] Branch Attention Attention Disease Active 2008-07 Overview: Univers deficit deficit 2-22 Formattin ity o f hyperactiv hyperactiv 00:00: g of this [place] ity ity 00 note Medical disorder disorder might be Bran ch (ADHD) (ADHD) different from the original. ICD10 Diagnosis Term Print Developer Utility Allergies, Adverse Reactions, Alerts Allergy Allergy Status Severity Reaction(s) Onset Inactive Treating Comm ents Source Name Type Date Date Clinician No Known DA Active U [facility] Drug 07-09 Allergie 00:00: s 00 No Known DA Active U 2020-07 [facility] Drug 07-25 Allergie 00:00: s 00 Unable DA [facility] Assess 00:00: 00 No Known DA Active [facility] s NO KNOWN Drug Active Univers ALLERGIE Class ity of [facility] [place] [facility] Family History Family Member Diagnosis Comments Start Date Stop Date Source Natural brother Psychiatry [facility]it [facility] Natural father Alcohol abuse Univers ity [facility] Natural father Substance abuse Unive rsity of [facility] Natural mother Psychiatry [facility] Social History Social Habit Start Date Stop Date Quantity Comments Source History SDOH University o f Alcohol Comment [place] Med ical Branch Exposure to 2022-03-21 2022-03-31 Not sure University SARS-CoV-2 00:00:00 22:47:00 [facility] (event) Branch Alcohol intake 2022-03-28 2022-03-28 Lifetime University of 00:00:00 00:00:00 non-drinker [facility] (finding) [place] Tobacco use and 2022-01-17 2022-01-17 Smokeless tobacco Un iversity of exposure 00:00:00 00:00:00 non-user [place] [facility] History [facility] 2020-04-20 2020-04-20 1 [place] o f Alcohol Frequency 00:00:00 00:00:00 [place] M edical Branch History [facility] 2020-04-20 2020-04-20 99 [place] o f Alcohol Std 00:00:00 00:00:00 [place] Medical Drinks Branch History [facility] 2020-04-20 2020-04-20 1 [place] o f Alcohol Binge 00:00:00 00:00:00 [place] Medic al Branch Sex Assigned At [birth year] [facility] y of 00:00:00 00:00:00 [facility] Smoking Status Start Date Stop Date Source Never smoked tobacco [facility] Medications Ordered Filled Start Stop Current Ordering Indication Dosage Frequency Signature Comments Components Source Medication Medication Date Date Medication? Clinician (SIG) Name Name NaCl 0.9% 2021- No 1000mL at 999 Uni vers (NS) bolus 04-01 mL/hr, ity of infusion 05:15: 06:27 1,000 mL, [place] 1,000 mL 00 :00 IV Medical Infusion, Branch ONCE, 1 dose, On 04/01/22 at 0015, STAT ondansetron 2021- No 4mg 4 mg, Slow Univers (ZOFRAN 04-01 IV Push, ity of (PF)) 04:15: 04:36 ONCE, 1 [place] injection 4 00 :00 dose, On Medi torito mg Ronel Branch 03/31/22 at 2315, ARLEN ARIPiprazol Yes [id number] 300mg 300 mg by Univers e (ABILIFY 03-17 Intramuscu ity of [place]) 00:00: lar route [place] 300 mg sers 00 once every Me dical month. Branch ARIPiprazol 2022-0 Yes 300mg 300 mg by Univers e (ABILIFY 9-15 Intramuscu ity of [place]) 00:00: lar route [place] 300 mg sers 00 once every Me dical month. Branch ARIPiprazol 2022-0 Yes [id number] 300mg 300 mg by Univers e (ABILIFY 9-15 Intramuscu ity of [place]) 00:00: lar route [place] 300 mg sers 00 once every Me dical month. Branch ARIPiprazol 2-0 Yes 300mg 300 mg by Univers e (ABILIFY 9-15 Intramuscu ity of [place]) 00:00: lar route [place] 300 mg sers 00 once every Me dical month. Branch ARIPiprazol 2-0 Yes [id number] 300mg 300 mg by Univers e (ABILIFY 9-15 Intramuscu ity of [place]) 00:00: lar route [place] 300 mg sers 00 once every Me dical month. Branch ARIPiprazol 2-0 Yes 300mg 300 mg by Univers e (ABILIFY 9-15 Intramuscu ity of [place]) 00:00: lar route [place] 300 mg sers 00 once every Me dical month. Branch ARIPiprazol 2-0 Yes [id number] 300mg 300 mg by Univers e (ABILIFY 9-15 Intramuscu ity of [place]) 00:00: lar route [place] 300 mg sers 00 once every Me dical month. Branch ARIPiprazol 2-0 Yes 300mg 300 mg by Univers e (ABILIFY 9-15 Intramuscu ity of [place]) 00:00: lar route [place] 300 mg sers 00 once every Me dical month. Branch ARIPiprazol 2022-0 Yes [id number] 300mg 300 mg by Univers e (ABILIFY 9-15 Intramuscu ity of [place]) 00:00: lar route [place] 300 mg sers 00 once every Me dical month. Branch ARIPiprazol 2-0 Yes 300mg 300 mg by Univers e (ABILIFY 9-15 Intramuscu ity of [place]) 00:00: lar route [place] 300 mg sers 00 once every Me dical month. Branch ARIPiprazol 2021- Yes [id number] 10mg Take 1 U nivers e 10 mg 9-08 10-09 tablet by ity of tablet 00:00: 04:59 mouth in [place] 00 :[address] [facility] for 30 days. ARIPiprazol 2021- Yes [id number] 10mg Take 1 U nivers e 10 mg 9-08 10-09 tablet by ity of tablet 00:00: 04:59 mouth in [place] 00 :00 [facility] for 30 days. ARIPiprazol 2021- Yes [id number] 10mg Take 1 U nivers e 10 mg 9-08 10-09 tablet by ity of tablet 00:00: 04:59 mouth in [place] 00 :00 [facility] for 30 days. ARIPiprazol 2021- Yes [id number] 10mg Take 1 U nivers e 10 mg 9-08 10-09 tablet by ity of tablet 00:00: 04:59 mouth in [place] 00 :00 [facility] for 30 days. ARIPiprazol 2021- Yes [id number] 10mg Take 1 U nivers e 10 mg 9-08 10-09 tablet by ity of tablet 00:00: 04:59 mouth in [place] 00 :00 [facility] for 30 days. ARIPiprazol 2021- Yes [id number] 10mg Take 1 U nivers e 10 mg 9-08 10-09 tablet by ity of tablet 00:00: 04:59 mouth in [place] 00 :00 [facility] for 30 days. ARIPiprazol 2021- Yes [id number] 10mg Take 1 U nivers e 10 mg 9-08 10-09 tablet by ity of tablet 00:00: 04:59 mouth in [place] 00 :00 [facility] for 30 days. ARIPiprazol 2021- Yes [id number] 300mg 300 mg by Univers e (ABILIFY 03-09 Intramuscu it y [facility]) 00:00: 05:59 [place] 300 mg sers 00 :00 once every Me dical month for Branch 90 days. ARIPiprazol 2021- No [id number] 300mg 300 mg by Univers e (ABILI 03-09 Intramuscu it y [facility]) 00:00: 00:00 [place] 300 mg sers 00 :00 once every Me dical month for Branch 90 days. ARIPiprazol 2021- No [id number] 300mg 300 mg by Univers e (ABIL[facility] 03-09 Intramuscu it y [facility]) 00:00: 00:00 lar route [place] 300 mg sers 00 :00 once every Me dical month for Branch 90 days. ARIPiprazol 2021- No [id number] 300mg 300 mg by Univers e (ABIL.[facility] 03-09 Intramuscu it y [facility]) 00:00: 00:00 lar route [place] 300 mg sers 00 :00 once every Me dical month for Branch 90 days. QUEtiapine 2021- No [id number] 50mg Take 1 Un [place] 50 mg 7-18 -08 tablet by ity of tablet 00:00: 00:00 mouth in [place] 00 :00 the Medical morning Branch and 1 tablet in the evening. Do all this for 60 days. QUEtiapine 2021- No [id number] 50mg Take 1 Un kayleen 50 mg 7-18 -08 tablet by ity of tablet 00:00: 00:00 mouth in [place] 00 :00 the Medical morning Branch and 1 tablet in the evening. Do all this for 60 days. QUEtiapine 2021- No [id number] 50mg Take 1 Un [place] 50 mg 7-18 09-08 tablet by ity of tablet 00:00: 00:00 mouth in [place] 00 :00 the Medical morning Branch and 1 tablet in the evening. Do all this for 60 days. QUEtiapine 2021-2021- No [id number] 50mg Take 1 Un [place] 50 mg 7-18 09-08 tablet by ity of tablet 00:00: 00:00 mouth in [place] 00 :00 the Medical morning Branch and 1 tablet in the evening. Do all this for 60 days. lithium 2021- No [id number] 300mg Take 1 U nivers carbonate 12-07 tablet by ity of CR 300 mg 00:00: 04:59 mouth at [place] SR tablet 00 :00 bedtime Medical for 90 Branch days. lithium No [id number] 450mg Take 1 U nivers carbonate 12-07 tablet by ity of CR 450 mg 00:00: 04:59 mouth [place] SR tablet 00 :00 every Medical morning Branch for 90 days. lithium No [id number] 300mg Take 1 U nivers carbonate 12-07 tablet by ity of CR 300 mg 00:00: 04:59 mouth at [place] SR tablet 00 :00 bedtime Medical for 90 Branch days. lithium No [id number] 450mg Take 1 U nivers carbonate 12-07 tablet by ity of CR 450 mg 00:00: 04:59 mouth [place] SR tablet 00 :00 every Medical morning Branch for 90 days. lithium No [id number] 300mg Take 1 U nivers carbonate 12-07 tablet by ity of CR 300 mg 00:00: 04:59 mouth at [place] SR tablet 00 :00 bedtime Medical for 90 Branch days. lithium No [id number] 450mg Take 1 U nivers carbonate 12-07 tablet by ity of CR 450 mg 00:00: 04:59 mouth [place] SR tablet 00 :00 every Medical morning Branch for 90 days. lithium No [id number] 300mg Take 1 U nivers carbonate 12-07 tablet by ity of CR 300 mg 00:00: 04:59 mouth at [place] SR tablet 00 :00 bedtime Medical for 90 Branch days. lithium No [id number] 450mg Take 1 U nivers carbonate 12-07 tablet by ity of CR 450 mg 00:00: 04:59 mouth [place] SR tablet 00 :00 every Medical morning Branch for 90 days. miSOPROStoL Yes [id number] 200ug Take 1 Univers 200 mcg 4-29 tablet by ity of tablet 00:00: mouth [place] 00 SEE-INSTRU Medical CTIONS. Branch Take one tab the night before and one tab the morning of procedure miSOPROStoL 2021-0 Yes [id number] 200ug Take 1 Univers 200 mcg 4-29 tablet by ity of tablet 00:00: mouth [place] SEE-INSTRU Medical CTIONS. Branch Take one tab the night before and one tab the morning of procedure miSOPROStoL 0 Yes [id number] 200ug Take 1 Univers 200 mcg 4-29 tablet by ity of tablet 00:00: mouth [place] SEE-INSTRU Medical CTIONS. Branch Take one tab the night before and one tab the morning of procedure miSOPROStoL 0 Yes [id number] 200ug Take 1 Univers 200 mcg 4-29 tablet by ity of tablet 00:00: mouth [place] SEE-INSTR Medical CTIONS. Branch Take one tab the night before and one tab the morning of procedure miSOPROStoL 0 Yes [id number] 200ug Take 1 Univers 200 mcg 4-29 tablet by ity of tablet 00:00: mouth [place] [facility] Medical CTIONS. Branch Take one tab the night before and one tab the morning of procedure miSOPROStoL 0 Yes [id number] 200ug Take 1 Univers 200 mcg 4-29 tablet by ity of tablet 00:00: mouth [place] [facility] Medical CTIONS. Branch Take one tab the night before and one tab the morning of procedure miSOPROStoL 0 Yes [id number] 200ug Take 1 Univers 200 mcg 4-29 tablet by ity of tablet 00:00: mouth [facility] Medical CTIONS. Branch Take one tab the night before and one tab the morning of procedure Immunizations Ordered Immunization Filled Immunization Date Status Commen ts Source Name Name SARS-COV-2 COVID-2022-03-17 Completed Unive rsity of MIKE-SUCROSE VACCINE 00:00:00 [facility] 12 YRS+, BIVALENT Branch 0.3ML, IM, (PFIZER ARITA TOP BOOSTER) SARS-COV-2 COVID-19 2022-03-17 Completed Unive rsity of MIKE-SUCROSE VACCINE 00:00:00 [facility] 12 YRS+, BIVALENT Branch 0.3ML, IM, (PFIZER ARITA TOP BOOSTER) SARS-COV-2 COVID-19 2022-03-17 Completed Unive rsity of MIKE-SUCROSE VACCINE 00:00:00 [facility] 12 YRS+, BIVALENT Branch 0.3ML, IM, (PFIZER ARITA TOP BOOSTER) SARS-COV-2 COVID-19 2022-03-17 Completed Unive rsity of MIKE-SUCROSE VACCINE 00:00:00 [facility] 12 YRS+, BIVALENT Branch 0.3ML, IM, (PFIZER ARITA TOP BOOSTER) SARS-COV-2 COVID-19 2022-03-17 Completed Unive rsity of MIKE-SUCROSE VACCINE 00:00:00 [facility] 12 YRS+, BIVALENT Branch 0.3ML, IM, (PFIZER ARITA TOP BOOSTER) SARS-COV-2 COVID-19 2022-03-17 Completed Unive rsity of MIKE-SUCROSE VACCINE 00:00:00 [facility] 12 YRS+, BIVALENT Branch 0.3ML, IM, (PFIZER ARITA TOP BOOSTER) SARS-COV-2 COVID-19 2021-06-24 Completed Unive rsity of PFIZER VACCINE 00:00:00 [facility] SARS-COV-2 COVID-19 2021-06-24 Completed Unive rsity of PFIZER VACCINE 00:00:00 [facility] SARS-COV-2 COVID-19 2021-06-24 Completed Unive rsity of PFIZER VACCINE 00:00:00 [facility] SARS-COV-2 COVID-19 2021-06-24 Completed Unive rsity of PFIZER VACCINE 00:00:00 [facility] SARS-COV-2 COVID-19 2021-06-24 Completed Unive rsity of PFIZER VACCINE 00:00:00 [facility] SARS-COV-2 COVID-19 2021-06-24 Completed Unive rsity of PFIZER VACCINE 00:00:00 [facility] SARS-COV-2 COVID-19 2021-06-24 Completed Unive rsity of PFIZER VACCINE 00:00:00 [facility] Branch SARS-COV-2 COVID-19 2020-11-21 Completed Unive rsity of PFIZER VACCINE 00:00:00 [facility] SARS-COV-2 COVID-19 2020-11-21 Completed Unive rsity of PFIZER VACCINE 00:00:00 [facility] SARS-COV-2 COVID-19 2020-11-21 Completed Unive rsity of PFIZER VACCINE 00:00:00 [facility] SARS-COV-2 COVID-19 2020-11-21 Completed Unive rsity of PFIZER VACCINE 00:00:00 [facility] SARS-COV-2 COVID-19 2020-11-21 Completed Unive rsity of PFIZER VACCINE 00:00:00 [facility] SARS-COV-2 COVID-19 2020-11-21 Completed Unive rsity of PFIZER VACCINE 00:00:00 [facility] SARS-COV-2 COVID-19 2020-11-21 Completed Unive rsity of PFIZER VACCINE 00:00:00 [facility] SARS-COV-2 COVID-19 2020-10-24 Completed Unive rsity of PFIZER VACCINE 00:00:00 [facility] SARS-COV-2 COVID-19 2020-10-24 Completed Unive rsity of PFIZER VACCINE 00:00:00 [facility] SARS-COV-2 COVID-19 2020-10-24 Completed Unive rsity of PFIZER VACCINE 00:00:00 [facility] SARS-COV-2 COVID-19 2020-10-24 Completed Unive rsity of PFIZER VACCINE 00:00:00 [facility] SARS-COV-2 COVID-19 2020-10-24 Completed Unive rsity of PFIZER VACCINE 00:00:00 [facility] SARS-COV-2 COVID-19 2020-10-24 Completed Unive rsity of PFIZER VACCINE 00:00:00 [facility] SARS-COV-2 COVID-19 2020-10-24 Completed Unive rsity of PFIZER VACCINE 00:00:00 [facility] Influenza Virus 2020-07-08 Completed Universit y of [...] OMV 2018-10-31 Completed Univ ersity of 00:00:00 [place] [facility] Meningococcal B, OMV 2018-10-31 Completed Univ ersity of 00:00:00 [place] [facility] Meningococcal B, OMV 2018-10-31 Completed Univ ersity of 00:00:00 [facility] Branch Meningococcal B, OMV 2018-10-31 Completed Univ ersity of 00:00:00 [facility] Branch Meningococcal B, OMV 2018-10-31 Completed Univ ersity of 00:00:00 [facility] Branch Meningococcal B, OMV 2018-10-31 Completed Univ ersity of 00:00:00 [facility] Branch Meningococcal B, OMV 2018-10-31 Completed Univ ersity of 00:00:00 [facility] Influenza Virus 2018-08-29 Completed Universit y of Vaccine Quad .5 mL IM 00:00:00 [place] Medical 6+ MO Branch Meningococcal B, OMV 2018-08-29 Completed Univ ersity of 00:00:00 [facility] Influenza Virus 2018-08-29 Completed Universit y of Vaccine Quad .5 mL IM 00:00:00 [place] [facility] 6+ MO Branch Meningococcal B, OMV 2018-08-29 Completed Univ ersity of 00:00:00 [facility] Influenza Virus 2018-08-29 Completed Universit y of Vaccine Quad .5 mL IM 00:00:00 [place] [facility] 6+ MO Branch Meningococcal B, OMV 2018-08-29 Completed Univ ersity of 00:00:00 [facility] Influenza Virus 2018-08-29 Completed Universit y of Vaccine Quad .5 mL IM 00:00:00 [place] [facility] 6+ MO Branch Meningococcal B, OMV 2018-08-29 Completed Univ ersity of 00:00:00 [facility] Influenza Virus 2018-08-29 Completed Universit y of Vaccine Quad .5 mL IM 00:00:00 [place] [facility] 6+ MO Branch Meningococcal B, OMV 2018-08-29 Completed Univ ersity of 00:00:00 [facility] Influenza Virus 2018-08-29 Completed Universit y of Vaccine Quad .5 mL IM 00:00:00 [place] [facility] 6+ MO Branch Meningococcal B, OMV 2018-08-29 Completed Univ ersity of 00:00:00 [facility] Influenza Virus 2018-08-29 Completed Universit y of Vaccine Quad .5 mL IM 00:00:00 [place] [facility] 6+ [place] Branch Meningococcal B, OMV 2018-08-29 Completed Univ ersity of 00:00:00 [facility] Meningococcal 2018-01-17 Completed University of Polysaccharide 00:00:00 [place] [facility] tor[facility] (groups A, C, Y and Branc h W-135) conjugate vaccine (MCV4P) Meningococcal 2018-01-17 Completed University of Polysaccharide 00:00:00 [place] [facility] (groups A, C, Y and Branc h W-135) conjugate vaccine (MCV4P) Meningococcal 2018-01-17 Completed University of Polysaccharide 00:00:00 [place] [facility]i tor[facility] (groups A, C, Y and Branc h W-135) conjugate vaccine (MCV4P) Meningococcal 2018-01-17 Completed University of Polysaccharide 00:00:00 [place] Medi torito (groups A, C, Y and Branc h W-135) conjugate vaccine (MCV4P) Meningococcal 2018-01-17 Completed University of Polysaccharide 00:00:00 [place] [facility]i torito (groups A, C, Y and Branc h W-135) conjugate vaccine (MCV4P) Meningococcal 2018-01-17 Completed University of Polysaccharide 00:00:00 [place] [facility]i [facility] (groups A, C, Y and Branc h W-135) conjugate vaccine (MCV4P) Meningococcal 2018-01-17 Completed University of Polysaccharide 00:00:00 [place] Medi torito (groups A, C, Y and Branc h W-135) conjugate vaccine (MCV4P) Influenza Virus 2017-04-12 Completed Universit y of Vaccine Quad IM 3+ 00:00:00 [facility] Influenza Virus 2017-04-12 Completed Universit y of Vaccine Quad IM 3+ 00:00:00 [facility] Influenza Virus 2017-04-12 Completed Universit y of Vaccine Quad IM 3+ 00:00:00 [facility] Influenza Virus 2017-04-12 Completed Universit y of Vaccine Quad IM 3+ 00:00:00 [facility] Influenza Virus 2017-04-12 Completed Universit y of Vaccine Quad IM 3+ 00:00:00 [facility] Influenza Virus 2017-04-12 Completed Universit y of Vaccine Quad IM 3+ 00:00:00 [facility] Influenza Virus 2017-04-12 Completed Universit y of Vaccine Quad IM 3+ 00:00:00 [facility] HPV9 2017-02-01 Completed University of 00:00:00 [facility] HPV9 2017-02-01 Completed University of 00:00:00 [facility] HPV9 2017-02-01 Completed University of 00:00:00 [facility] HPV9 2017-02-01 Completed University of 00:00:00 [facility] HPV9 2017-02-01 Completed University of 00:00:00 [facility] HPV9 2017-02-01 Completed University of 00:00:00 [facility] HPV9 2017-02-01 Completed University of 00:00:00 [facility] HPV 2016-01-20 Completed University of 00:00:00 [facility] HPV 2016-01-20 Completed University of 00:00:00 [facility] HPV 2016-01-20 Completed University of 00:00:00 [facility] HPV 2016-01-20 Completed University of 00:00:00 [facility] HPV 2016-01-20 Completed University of 00:00:00 [facility] HPV 2016-01-20 Completed University of 00:00:00 [facility] HPV 2016-01-20 Completed University of 00:00:00 [facility] Influenza Virus 2015-07-08 Completed Universit y of Vaccine Quad IM 3+ 00:00:00 [facility] HPV9 2015-07-08 Completed University of 00:00:00 [facility] Influenza Virus 2015-07-08 Completed Universit y of Vaccine Quad IM 3+ 00:00:00 [facility] HPV9 2015-07-08 Completed University of 00:00:00 [facility] Influenza Virus 2015-07-08 Completed Universit y of Vaccine Quad IM 3+ 00:00:00 [facility] HPV9 2015-07-08 Completed University of 00:00:00 [facility] Influenza Virus 2015-07-08 Completed Universit y of Vaccine Quad IM 3+ 00:00:00 [facility] HPV9 2015-07-08 Completed University of 00:00:00 [facility] Influenza Virus 2015-07-08 Completed Universit y of Vaccine Quad IM 3+ 00:00:00 [facility] HPV9 2015-07-08 Completed University of 00:00:00 [facility] Influenza Virus 2015-07-08 Completed Universit y of Vaccine Quad IM 3+ 00:00:00 [facility] HPV9 2015-07-08 Completed University of 00:00:00 [facility] Influenza Virus 2015-07-08 Completed Universit y of Vaccine Quad IM 3+ 00:00:00 [facility] HPV9 2015-07-08 Completed University of 00:00:00 [facility] Influenza Virus 2014-04-02 Completed Universit y of Vaccine (3+ yrs) 00:00:00 [facility] Influenza Virus 2014-04-02 Completed Universit y of Vaccine (3+ yrs) 00:00:00 [facility] Influenza Virus 2014-04-02 Completed Universit y of Vaccine (3+ yrs) 00:00:00 [facility] Influenza Virus 2014-04-02 Completed Universit y of Vaccine (3+ yrs) 00:00:00 [facility] Influenza Virus 2014-04-02 Completed Universit y of Vaccine (3+ yrs) 00:00:00 [facility] Influenza Virus 2014-04-02 Completed Universit y of Vaccine (3+ yrs) 00:00:00 [facility] Influenza Virus 2014-04-02 Completed Universit y of Vaccine (3+ yrs) 00:00:00 [facility] Influenza Virus 2013-05-22 Completed Universit y of Vaccine (3+ yrs) 00:00:00 [facility] Meningococcal 2013-05-22 Completed University of Polysaccharide 00:00:00 [place] [facility] tor[facility] (groups A, C, Y and Branc h W-135) conjugate vaccine (MCV4P) TDAP 2013-05-22 Completed University of 00:00:00 [facility] Influenza Virus 2013-05-22 Completed Universit y of Vaccine (3+ yrs) 00:00:00 [facility] Meningococcal 2013-05-22 Completed University of Polysaccharide 00:00:00 [place] Medi torito (groups A, C, Y and Branc h W-135) conjugate vaccine (MCV4P) TDAP 2013-05-22 Completed [facility] 00:00:00 [facility] Influenza Virus 2013-05-22 Completed Universit y of Vaccine (3+ yrs) 00:00:00 [facility] Meningococcal 2013-05-22 Completed [facility] of Polysaccharide 00:00:00 [facility] (groups A, C, Y and Branc h W-135) conjugate vaccine (MCV4P) TDAP 2013-05-22 Completed University of 00:00:00 [facility] Influenza Virus 2013-05-22 Completed Universit y of Vaccine (3+ yrs) 00:00:00 [facility] Meningococcal 2013-05-22 Completed [facility] of Polysaccharide 00:00:00 [facility] (groups A, C, Y and Branc h W-135) conjugate vaccine (MCV4P) TDAP 2013-05-22 Completed University of 00:00:00 [facility] Influenza Virus 2013-05-22 Completed Universit y of Vaccine (3+ yrs) 00:00:00 [facility] Meningococcal 2013-05-22 Completed University of Polysaccharide 00:00:00 [facility] (groups A, C, Y and Branc h W-135) conjugate vaccine (MCV4P) TDAP 2013-05-22 Completed University of 00:00:00 [facility] Influenza Virus 2013-05-22 Completed Universit y of Vaccine (3+ yrs) 00:00:00 [facility] Meningococcal 2013-05-22 Completed University of Polysaccharide 00:00:00 [facility] (groups A, C, Y and Branc h W-135) conjugate vaccine (MCV4P) TDAP 2013-05-22 Completed University of 00:00:00 [facility] Influenza Virus 2013-05-22 Completed Universit y of Vaccine (3+ yrs) 00:00:00 [facility] Meningococcal 2013-05-22 Completed University of Polysaccharide 00:00:00 [place] [facility] (groups A, C, Y and Branc h W-135) conjugate vaccine (MCV4P) TDAP 2013-05-22 Completed University of 00:00:00 [facility] Influenza Virus 2012-06-13 Completed Universit y of Vaccine 00:00:00 [facility] Influenza Virus 2012-06-13 Completed Universit y of Vaccine 00:00:00 [facility] Influenza Virus 2012-06-13 Completed Universit y of Vaccine 00:00:00 [facility] Influenza Virus 2012-06-13 Completed Universit y of Vaccine 00:00:00 [facility] Influenza Virus 2012-06-13 Completed Universit y of Vaccine 00:00:00 [facility] Influenza Virus 2012-06-13 Completed Universit y of Vaccine 00:00:00 [facility] Influenza Virus 2012-06-13 Completed Universit y of Vaccine 00:00:00 [facility] Influenza Virus 2011-05-18 Completed Universit y of Vaccine 00:00:00 [facility] Influenza Virus 2011-05-18 Completed Universit y of Vaccine 00:00:00 [facility] Influenza Virus 2011-05-18 Completed Universit y of Vaccine 00:00:00 [facility] Influenza Virus 2011-05-18 Completed Universit y of Vaccine 00:00:00 [facility] Influenza Virus 2011-05-18 Completed Universit y of Vaccine 00:00:00 [facility] Influenza Virus 2011-05-18 Completed Universit y of Vaccine 00:00:00 [facility] Influenza Virus 2011-05-18 Completed Universit y of Vaccine 00:00:00 [facility] Influenza Virus 2010-05-26 Completed Universit y of Vaccine 00:00:00 [facility] Influenza Virus 2010-05-26 Completed Universit y of Vaccine 00:00:00 [facility] Influenza Virus 2010-05-26 Completed Universit y of Vaccine 00:00:00 [facility] Influenza Virus 2010-05-26 Completed Universit y of Vaccine 00:00:00 [facility] Influenza Virus 2010-05-26 Completed Universit y of Vaccine 00:00:00 [facility] Influenza Virus 2010-05-26 Completed Universit y of Vaccine 00:00:00 [facility] Influenza Virus 2010-05-26 Completed Universit y of Vaccine 00:00:00 [facility] Influenza Virus 2009-06-23 Completed Universit y of Vaccine 00:00:00 [facility] Influenza Virus 2009-06-23 Completed Universit y of Vaccine 00:00:00 [facility] Influenza Virus 2009-06-23 Completed Universit y of Vaccine 00:00:00 [facility] Influenza Virus 2009-06-23 Completed Universit y of Vaccine 00:00:00 [facility] Influenza Virus 2009-06-23 Completed Universit y of Vaccine 00:00:00 [facility] Influenza Virus 2009-06-23 Completed Universit y of Vaccine 00:00:00 [facility] Influenza Virus 2009-06-23 Completed Universit y of Vaccine 00:00:00 [facility] Influenza Virus 2009-05-20 Completed Universit y of Vaccine 00:00:00 [facility] Influenza Virus 2009-05-20 Completed Universit y of Vaccine 00:00:00 [facility] Influenza Virus 2009-05-20 Completed Universit y of Vaccine 00:00:00 [facility] Influenza Virus 2009-05-20 Completed Universit y of Vaccine 00:00:00 [facility] Influenza Virus 2009-05-20 Completed Universit y of Vaccine 00:00:00 [facility] Influenza Virus 2009-05-20 Completed Universit y of Vaccine 00:00:00 [facility] Influenza Virus 2009-05-20 Completed Universit y of Vaccine 00:00:00 [facility] Influenza Virus 2007-06-01 Completed Universit y of Vaccine 00:00:00 [facility] Influenza Virus 2007-06-01 Completed Universit y of Vaccine 00:00:00 [facility] Influenza Virus 2007-06-01 Completed Universit y of Vaccine 00:00:00 [facility] Influenza Virus 2007-06-01 Completed Universit y of Vaccine 00:00:00 [facility] Influenza Virus 2007-06-01 Completed Universit y of Vaccine 00:00:00 [facility] Influenza Virus 2007-06-01 Completed Universit y of Vaccine 00:00:00 [facility] Influenza Virus 2007-06-01 Completed Universit y of Vaccine 00:00:00 [facility] DTAP 2006-05-24 Completed University of 00:00:00 [facility] Proquad 2006-05-24 Completed University of (MMR/VARICELLA) 00:00:00 [facility] Polio (IPV/OPV) 2006-05-24 Completed Universit y of 00:00:00 [facility] DTAP 2006-05-24 Completed University of 00:00:00 [facility] Proquad 2006-05-24 Completed University of (MMR/VARICELLA) 00:00:00 [facility] Polio (IPV/OPV) 2006-05-24 Completed Universit y of 00:00:00 [facility] DTAP 2006-05-24 Completed University of 00:00:00 [facility] Proquad 2006-05-24 Completed University of (MMR/VARICELLA) 00:00:00 [facility] Polio (IPV/OPV) 2006-05-24 Completed Universit y of 00:00:00 [facility] DTAP 2006-05-24 Completed University of 00:00:00 [facility] Proquad 2006-05-24 Completed University of (MMR/VARICELLA) 00:00:00 [facility] Polio (IPV/OPV) 2006-05-24 Completed Universit y of 00:00:00 [facility] DTAP 2006-05-24 Completed University of 00:00:00 [facility] Proquad 2006-05-24 Completed University of (MMR/VARICELLA) 00:00:00 [facility] Polio (IPV/OPV) 2006-05-24 Completed Universit y of 00:00:00 [facility] DTAP 2006-05-24 Completed University of 00:00:00 [facility] Proquad 2006-05-24 Completed University of (MMR/VARICELLA) 00:00:00 [facility] Polio (IPV/OPV) 2006-05-24 Completed Universit y of 00:00:00 [facility] DTAP 2006-05-24 Completed University of 00:00:00 [facility] Proquad 2006-05-24 Completed University of (MMR/VARICELLA) 00:00:00 [facility] Polio (IPV/OPV) 2006-05-24 Completed Universit y of 00:00:00 [facility] HEPATITIS A 2005-05-19 Completed University of 00:00:00 [facility] Influenza Virus 2005-05-19 Completed Universit y of Vaccine 00:00:00 [facility] HEPATITIS A 2005-05-19 Completed University of 00:00:00 [facility] Influenza Virus 2005-05-19 Completed Universit y of Vaccine 00:00:00 [facility] HEPATITIS A 2005-05-19 Completed University of 00:00:00 [facility] Influenza Virus 2005-05-19 Completed Universit y of Vaccine 00:00:00 [facility] HEPATITIS A 2005-05-19 Completed University of 00:00:00 [facility] Influenza Virus 2005-05-19 Completed Universit y of Vaccine 00:00:00 [facility] HEPATITIS A 2005-05-19 Completed University of 00:00:00 [facility] Influenza Virus 2005-05-19 Completed Universit y of Vaccine 00:00:00 [facility] HEPATITIS A 2005-05-19 Completed University of 00:00:00 [facility] Influenza Virus 2005-05-19 Completed Universit y of Vaccine 00:00:00 [facility] HEPATITIS A 2005-05-19 Completed University of 00:00:00 [facility] Influenza Virus 2005-05-19 Completed Universit y of Vaccine 00:00:00 [facility] HEPATITIS A 2004-05-17 Completed University of 00:00:00 [facility] HEPATITIS A 2004-05-17 Completed University of 00:00:00 [facility] HEPATITIS A 2004-05-17 Completed University of 00:00:00 [facility] HEPATITIS A 2004-05-17 Completed University of 00:00:00 [facility] HEPATITIS A 2004-05-17 Completed University of 00:00:00 [facility] HEPATITIS A 2004-05-17 Completed University of 00:00:00 [facility] HEPATITIS A 2004-05-17 Completed University of 00:00:00 [facility] Polio (IPV/OPV) 2003-08-21 Completed Universit y of 00:00:00 [facility] Polio (IPV/OPV) 2003-08-21 Completed Universit y of 00:00:00 [facility] Polio (IPV/OPV) 2003-08-21 Completed Universit y of 00:00:00 [facility] Polio (IPV/OPV) 2003-08-21 Completed Universit y of 00:00:00 [facility] HIB 4 Dose Schedule 2003-05-22 Completed Unive rsity of 00:00:00 [facility] MMR 2003-05-22 Completed University of 00:00:00 [facility] Pneumococcal 7 2003-05-22 Completed University of Conjugate, PCV7 00:00:00 [place] [facility] (Prevnar7) [facility] Varicella 2003-05-22 Completed University of (varivax)(chicken 00:00:00 [place] [facility] pox) [facility] HIB 4 Dose Schedule 2003-05-22 Completed Unive rsity of 00:00:00 [facility] MMR 2003-05-22 Completed University of 00:00:00 [facility] Pneumococcal 7 2003-05-22 Completed University of Conjugate, PCV7 00:00:00 [place] [facility] (Prevnar7) [facility] Varicella 2003-05-22 Completed University of (varivax)(chicken 00:00:00 [place] [facility] pox) [facility] HIB 4 Dose Schedule 2003-05-22 Completed Unive rsity of 00:00:00 [facility] Branch MMR 2003-05-22 Completed University of 00:00:00 [facility] Branch Pneumococcal 7 2003-05-22 Completed University of Conjugate, PCV7 00:00:00 [place] [facility] (Prevnar7) Branch Varicella 2003-05-22 Completed University of (varivax)(chicken 00:00:00 [facility] edical pox) Branch HIB 4 Dose Schedule 2003-05-22 Completed Unive rsity of 00:00:00 [facility] Branch MMR 2003-05-22 Completed University of 00:00:00 [facility] Pneumococcal 7 2003-05-22 Completed University of Conjugate, PCV7 00:00:00 [place] [facility] (Prevnar7) [facility] Varicella 2003-05-22 Completed University of (varivax)(chicken 00:00:00 [facility] edical pox) Branch DTAP 2003-01-01 Completed University of 00:00:00 [facility] HIB 4 Dose Schedule 2003-01-01 Completed Unive rsity of 00:00:00 [facility] Hep B, Adol or Pedi 2003-01-01 Completed Unive rsity of Dosage 00:00:00 [facility] Pneumococcal 7 2003-01-01 Completed University of Conjugate, PCV7 00:00:00 [place] [facility] (Prevnar7) Branch DTAP 2003-01-01 Completed University of 00:00:00 [facility] HIB 4 Dose Schedule 2003-01-01 Completed Unive rsity of 00:00:00 [facility] Hep B, Adol or Pedi 2003-01-01 Completed Unive rsity of Dosage 00:00:00 [facility] Pneumococcal 7 2003-01-01 Completed University of Conjugate, PCV7 00:00:00 [place] [facility] (Prevnar7) Branch DTAP 2003-01-01 Completed University of 00:00:00 [facility] HIB 4 Dose Schedule 2003-01-01 Completed Unive rsity of 00:00:00 [facility] Hep B, Adol or Pedi 2003-01-01 Completed Unive rsity of Dosage 00:00:00 [facility] Pneumococcal 7 2003-01-01 Completed University of Conjugate, PCV7 00:00:00 [place] [facility] (Prevnar7) [facility] DTAP 2003-01-01 Completed University of 00:00:00 [facility] HIB 4 Dose Schedule 2003-01-01 Completed Unive rsity of 00:00:00 [facility] Hep B, Adol or Pedi 2003-01-01 Completed Unive rsity of Dosage 00:00:00 [facility] Pneumococcal 7 2003-01-01 Completed University of Conjugate, PCV7 00:00:00 [place] [facility] (Prevnar7) Branch DTAP 2002 Completed University of 00:00:00 [facility] HIB 4 Dose Schedule 2002 Completed Unive rsity of 00:00:00 [facility] Pneumococcal 7 2002 Completed University of Conjugate, PCV7 00:00:00 [place] [facility] (Prevnar7) [facility] Polio (IPV/OPV) 2002 Completed Universit y of 00:00:00 [facility] DTAP 2002 Completed University of 00:00:00 [facility] HIB 4 Dose Schedule 2002 Completed Unive rsity of 00:00:00 [facility] Pneumococcal 7 2002 Completed University of Conjugate, PCV7 00:00:00 [place] [facility] (Prevnar7) [facility] Polio (IPV/OPV) 2002 Completed Universit y of 00:00:00 [facility] DTAP 2002 Completed University of 00:00:00 [facility] HIB 4 Dose Schedule 2002 Completed Unive rsity of 00:00:00 [facility] Pneumococcal 7 2002 Completed University of Conjugate, PCV7 00:00:00 [place] [facility] (Prevnar7) [facility] Polio (IPV/OPV) 2002 Completed Universit y of 00:00:00 [facility] DTAP 2002 Completed University of 00:00:00 [facility] HIB 4 Dose Schedule 2002 Completed Unive rsity of 00:00:00 [facility] Pneumococcal 7 2002 Completed University of Conjugate, PCV7 00:00:00 [place] [facility] (Prevnar7) [facility] Polio (IPV/OPV) 2002 Completed Universit y of 00:00:00 [facility] DTAP 2002 Completed University of 00:00:00 [facility] HIB 4 Dose Schedule 2002 Completed Unive rsity of 00:00:00 [facility] Branch Hep B, Adol or Pedi 2002 Completed Unive rsity of Dosage 00:00:00 [facility] Polio (IPV/OPV) 2002 Completed Universit y of 00:00:00 [facility] DTAP 2002 Completed University of 00:00:00 [facility] HIB 4 Dose Schedule 2002 Completed Unive rsity of 00:00:00 [facility] Branch Hep B, Adol or Pedi 2002 Completed Unive rsity of Dosage 00:00:00 [facility] Polio (IPV/OPV) 2002 Completed Universit y of 00:00:00 [facility] DTAP 2002 Completed University of 00:00:00 [facility] HIB 4 Dose Schedule 2002 Completed Unive rsity of 00:00:00 [facility] Hep B, Adol or Pedi 2002 Completed Unive rsity of Dosage 00:00:00 [facility] Polio (IPV/OPV) 2002 Completed Universit y of 00:00:00 [facility] DTAP 2002 Completed University of 00:00:00 [facility] HIB 4 Dose Schedule 2002 Completed Unive rsity of 00:00:00 [facility] Branch Hep B, Adol or Pedi 2002 Completed Unive rsity of Dosage 00:00:00 [facility] Polio (IPV/OPV) 2002 Completed [facility] y of 00:00:00 [facility] Hep B, Adol or Pedi 2002 Completed Unive rsity of Dosage 00:00:00 [facility] Hep B, Adol or Pedi 2002 Completed Unive rsity of Dosage 00:00:00 [facility] Hep B, Adol or Pedi 2002 Completed Unive rsity of Dosage 00:00:00 [facility] Hep B, Adol or Pedi 2002 Completed Unive rsity of Dosage 00:00:00 [facility] Hep B, Adol or Pedi 2002 Completed Unive rsity of Dosage 00:00:00 [facility] Hep B, Adol or Pedi 2002 Completed Unive rsity of Dosage 00:00:00 [facility] Hep B, Adol or Pedi 2002 Completed Unive rsity of Dosage 00:00:00 [facility] Vital Signs Vital Name Observation Time Observation Value Comments Source Systolic blood 2022-04-01 06:00:00 118 mm[Hg] Univer sity of pressure [facility] Diastolic blood 2022-04-01 06:00:00 92 mm[Hg] Unive rsity of pressure [facility] Heart rate 2022-04-01 06:00:00 78 /min Universi ty of [facility] Respiratory rate 2022-04-01 06:00:00 16 /min Univ ersity of [facility] Oxygen saturation in 2022-04-01 06:00:00 98 /min [facility] Arterial blood by [facility] Pulse oximetry Branch Body height 2022-04-01 03:48:00 160 cm Universi ty of [facility] Body weight 2022-04-01 03:48:00 56.7 kg Universi ty of [facility] BMI 2022-04-01 03:48:00 22.14 kg/m2 [facility] Height 2020-09-25 23:56:00 165.1 CM Weight 2020-09-25 23:56:00 2.69 KG Systolic blood 2022-03-28 14:54:00 116 mm[Hg] Univer sity of pressure [facility] Diastolic blood 2022-03-28 14:54:00 87 mm[Hg] Unive rsity of pressure [facility] Heart rate 2022-03-28 14:54:00 113 /min [facility] Respiratory rate 2022-03-28 14:54:00 18 /min Univ ersity of [facility] Body height 2022-03-28 14:54:00 160 cm [facility] Body weight 2022-03-28 14:54:00 51.71 kg [facility] BMI 2022-03-28 14:54:00 20.19 kg/m2 [facility] Body temperature 2022-02-24 18:37:00 37 Linda Univ ersity of [facility] Body weight 2022-02-24 18:37:00 51.801 kg [facility] BMI 2022-02-24 18:37:00 20.23 kg/m2 [facility] Systolic blood 2022-02-21 12:51:00 133 mm[facility]Hg] [facility] Diastolic blood 2022-02-21 12:51:00 49 mm[Hg] [facility] 2022-02-21 12:51:00 108 /min [facility] Respiratory rate 2022-02-21 12:51:00 18 /min [facility] height 2022-02-21 12:51:00 160 cm [facility] Oxygen saturation in 2022-01-24 00:45:00 98 /min [facility] Arterial blood by [facility] Pulse oximetry Branch Head 2009-07-13 18:51:00 51 cm [facility] Occipital-frontal [facility] circumference by [employer] Branch measure Procedures Procedure Date / Time Performing Clinician Source Performed POCT TEST 2022-04-01 04:37:00 Deonna Montes [facility] LIPASE 2022-04-01 04:36:00 Deonna Montes [facility] COMP. METABOLIC PANEL 2022-04-01 04:36:00 Deonna Montes [facility] ([id number]) [facility] CBC WITH DIFF 2022-04-01 04:36:00 Deonna Montes [facility] URINALYSIS 2022-04-01 04:36:00 Deonna Montes [facility] NOTICE OF PRIVACY 2022-04-01 03:37:12 Doctor Unassigned, [facility] PRACTICES [facility] CONSENT/REFUSAL FOR 2022-04-01 03:36:55 [facility]assigned[facility] DIAGNOS[facility] AND TREATMENT [facility] SARS-COV-2 COVID-19 2022-03-17 16:49:14 Doctor Unassigned, Unive [facility] MIKE-SUCROSE VACCINE 12 [facility] YRS+, BIVALENT 0.3ML, IM, (PFIZER ARITA TOP BOOSTER) SARS-COV-2 COVID-19 2022-03-17 16:49:14 Doctor Unassigned, Unive [facility] [place] MIKE-SUCROSE VACCINE 12 [facility] YRS+, BIVALENT 0.3ML, IM, (PFIZER ARITA TOP BOOSTER) XR PELVIS 3+ VW 2022-02-24 18:13:00 Jaguar Rizzo o monica [facility] EXTERNAL PROVIDER RECORDS 2022-02-22 05:01:[address] [facility] EMERGENCY SERVICES 2022-01-23 05:01:00 Doctor Parra [facility] AGREEMENTS AND [facility] AUTHORIZATIONS EMERGENCY DEPARTMENT 2022-01-23 05:01:[address] [facility] DOCUMENTS [facility] Encounters Start End Encounter Admission Attending Care Care Encounter Source Date/Time Date/Time Type Type Clinicians Facility Department ID 2021-11-02 Outpatient [facility] [id number] [place] 11:00:33 [id number] Health 2021-07-09 Inpatient [facility] [id number] [facility] 12:46:00 14 2021-05-25 Inpatient [facility] [id number] [facility] 23:19:00 94 2022-03-31 2022-04-01 Emergency [facility] E[facility] [id number] Univers 22:46:00 01:29:00 DEONNA erickson [facility] 2022-03-31 2022-04-01 [facility] [id number] Univers 22:46:00 01:29:00 Deonna COLMENARES [id number] i ty of [place] 4.2.7.2.686 [facility] [id number] [facility] 084 Branch 2022-03-31 2022-03-31 Orders Doctor SHOOK [id number] Univers 00:00:00 00:00:00 Only RosamariassEDITH gama [id number] ity [place] [facility] 4.2.7.2.686 Har[place] [id number] [facility] 009 Branch 2022-03-28 2022-03-28 Outpatient Escobar JACOBS [facility] [id number] Univers 10:15:00 12:05:24 MIKE erickson o [facility] 2022-03-28 2022-03-28 Travel 1.2.840.1 [id number] Univers 00:00:00 00:00:00 [id number] ity of 3.104.2.7 [place][id number] 084.8 Medica l .[facility] [place] 2022-03-17 2022-03-17 Imm/Inj Sol Mack P 1.2.840.1 [id number] Univers 11:30:00 12:25:54 Visit Ana LuisaJanice [id number] ity of 3.104.2.7 [place] .[id number] Medica l .[facility] 2022-03-17 2022-03-17 Outpatient R FREDERICK [facility] [id number] Univers 11:30:00 11:30:00 SOL ity of [facility] 2022-03-17 2022-03-17 Outpatient R [facility] [id number] Univers 11:30:00 11:30:00 [id number] ity of [facility] 2022-03-17 2022-03-17 Travel 1.2.840.1 [id number] Univers 00:00:00 00:00:00 [id number] [id number] ity of 3.104.2.7 [place].3.698 [place] .3.311372 084.8 Medica l .[facility] 2022-02-24 2022-02-24 [facility] 1.2.840.4 [id number] Univers 13:02:19 23:59:00 Encounter Jaguar [id number] it y of 3.104.2.7 [place] .3.301255 Medica l .8 [facility] 2022-02-24 2022-02-24 [facility] 1.2.840.4 [id number] Univers 13:00:00 14:33:28 Visit Jaguar 13921.1.1 ity of 3.104.2.7 [place] .3.982131 Medica l .8 [facility] 2022-02-24 2022-02-24 Travel 1.2.840.1 1.2.800.926 [id number] Univers 00:00:00 00:00:00 87752.1.1 350.1.13.10 ity of 3.104.2.7 4.[place].7.3.698 [place] .3.656169 084.8 Medica l .8 [facility] 2022-02-22 2022-02-22 Orders Doctor 1.2.840.7 [id number] Univers 00:00:00 00:00:00 Only Unassigned, 34849.1.1 ity of [place] 3.104.2.7 [place] .3.378725 Medica l .8 [facility] 2022-02-21 2022-02-21 Travel 1.2.840.1 1.2.258.506 [id number] Univers 00:00:00 00:00:00 55310.1.1 350.1.13.10 ity of 3.104.2.7 4.[place].7.3.698 [place] .3.498255 084.8 Medica l .8 [facility] 2022-01-23 2022-01-23 Emergency Kitty Kessler 1.2.840.7 [id number] Univers 19:42:00 21:04:00 Bree 82372.1.1 ity of 3.104.2.7 [place] .3.990192 Medica l .8 [facility] 2022-01-23 2022-01-23 Travel 1.2.840.1 1.2.579.060 [id number] Univers 00:00:00 00:00:00 51790.1.1 350.1.13.10 ity of 3.104.2.7 4.2.7.3.698 [place] .3.763046 084.8 Medica l .8 [facility] 2022-01-17 2022-01-17 Travel 1.2.840.1 1.2.635.999 [id number] [id number] Univers 00:00:00 00:00:00 61657.1.1 350.1.13.10 ity of 3.104.2.7 4.2.7.3.698 [place] .3.140421 084.8 Medica l .8 [facility] 2021-12-31 2021-12-31 Office Ame Ramirez 1.2.840.9 [id number] Univers 16:00:00 17:22:54 Visit Maggie Brooks 17250.1.1 ity of 3.104.2.7 [place] .3.031509 Medica l .8 [facility] 2021-12-31 2021-12-31 Travel 1.2.840.1 1.2.093.933 [id number] Univers 00:00:00 00:00:00 88570.1.1 350.1.13.10 ity of 3.104.2.7 4.2.7.3.698 [place] .3.868033 084.8 Medica l .8 [facility] 2021-12-20 2021-12-20 Travel 1.2.840.1 1.2.257.980 5987 [id number] Univers 00:00:00 00:00:00 95886.1.1 350.1.13.10 ity of 3.104.2.7 4.2.7.3.698 [place] .3.827232 084.8 Medica l .8 [facility] 2021-07-09 2021-07-09 Emergency [facility] [id number] [facility] 12:46:00 12:46:00 14 2021-05-25 2021-05-25 Emergency [facility] [id number] [facility] 23:19:00 23:19:00 94 2020-09-25 2020-09-26 Emergency E [facility] [id number] [facility] 23:49:00 10:04:00 [facility] Results Test Description Test Time Test Comments Results Result Comments Source COMP. METABOLIC PANEL (93576) 2022-04-01 04:58:46 Test Item Value Reference Range Interpretation Comme nts NA (test code = 1172042371) 139 mmol/L 135-145 K (test code = 7416564835) 5.0 mmol/L 3.5-5 CL (test code = 3637902295) 102 mmol/L 98-108 CO2 TOTAL (test code = 27 mmol/L 23-31 0924154740) AGAP (test code = 4829511200) 2-16 BUN (test code = 1815843413) 13 mg/dL 7-23 GLUCOSE (test code = 7139389954) 104 mg/dL 70-110 CREATININE (test code = 0.69 mg/dL 0.5-1.04 1428309612) TOTAL BILI (test code = 0.5 mg/dL 0.1-1.0 5327990149) CALCIUM (test code = 5106138354) 9.6 mg/dL 8.6-10.6 T PROTEIN (test code = 7.2 g/dL 6.3-8.2 4127261901) ALBUMIN (test code = 2084675010) 4.6 g/dL 3.5-5 ALK PHOS (test code = 5806402113) 60 U/L 34-122 ALTv (test code = 1742-6) 15 U/L 5-35 AST(SGOT) (test code = 26 U/L 13-40 9473285635) eGFR (test code = 4714536551) mL/min/1.73m2 MEDHAT (test code = MEDHAT) Association of Glomerular Filtration Rate (GFR) and Staging of Kidney Disease* + +--------- + ----+| GFR (mL/min/1.73 m2) ?| With Kidney Damage ?| ?Without Kidney Damage+ +--- + +| ?>90 ?| ?Stage one ?| ? Normal ?+ +-------- + -----+| ?60-89 ?| ?Stage two ?| ? Decreased GFR ? + +--------- + ----+| ?30-59 ?| ?Stage three ?| ? Stage three ? + +--------- + ----+| ?15-29 ?| ?Stage four ? | ? Stage four ?+ +-------- + -----+| ?<15 (or dialysis) ? ?| ?Stage five ? | ? Stage five ?+ +-------- + -----+ *Each stage assumes the associated GFR level [...] or urine or abnormalities in imaging tests). [facility] Test Item Value Reference Range Interpretation Comments LIPASE (test code = 4568981400) 71 U/L 0-220 Lab Interpretation (test code = Normal 76554-4) [facility] WITH [id number] 04:46:42 Test Item Value Reference Range Interpretation Comments WBC (test code = See_Comment [Automated message] 6590-2) The system [employer] generated this result transmitted ref erence range: 4.30 - 1 1.10 10*3/?L. The re ference range was not u sed to interpret this result as normal/abnor mal. RBC (test code = See_Comment [Automated message] 539-8) The system [employer] generated this result transmitted ref erence range: 3.93 - 5 .25 10*6/?L. The re ference range was not u sed to interpret this result as normal/abnor mal. HGB (test code = 13.7 g/dL 11.6-15 718-7) HCT (test code = 42.7 % 35.7-45.2 4544-3) MCV (test code = 88.4 fL 80.6-95.5 787-2) MCH (test code = 28.4 pg 25.9-32.8 785-6) MCHC (test code = 32.1 g/dL 31.6-35.1 786-4) RDW-SD (test code 42.5 fL 39-49.9 = 23510-5) RDW-CV (test code 13.2 % 12-15.5 = 788-0) PLT (test code = See_Comment [Automated message] 515-3) The system whic h generated this result transmitted ref erence range: 166 - 35 8 10*3/?L. The re ference range was not u sed to interpret this result as normal/abnor mal. MPV (test code = 10.4 fL 9.5-12.9 74087-7) NRBC/100 WBC (test See_Comment [Automat ed message] code = 1563754389) The syste m which generated this result transmitted ref erence range: 0.0 - 10 .0 /100 WBCs. The refer ence range was not u sed to interpret this result as normal/abnor mal. NRBC x10^3 (test See_Comment [Automated message] code = 4133879405) The syste m which generated this result transmitted ref erence range: 10*3/?L. The reference range was not used to interpr et this result as normal/abnormal . GRAN MAT (NEUT) % 69.5 % (test code = 770-8) IMM GRAN % (test 0.40 % code = 6098331963) LYMPH % (test code 23.3 % = 736-9) MONO % (test code 5.3 % = 5905-5) EOS % (test code = 0.7 % 713-8) BASO % (test code 0.8 % = 706-2) GRAN MAT 5.73 10*3/uL 1.88-7.09 x10^3(ANC) (test code = 4780330792) IMM GRAN x10^3 0.03 10*3/uL 0-0.06 (test code = 7324083585) LYMPH x10^3 (test 1.92 10*3/uL 1.32-3.29 code = 731-0) MONO x10^3 (test 0.44 10*3/uL 0.33-0.92 code = 742-7) EOS x10^3 (test 0.06 10*3/uL 0.03-0.39 code = 711-2) BASO x10^3 (test 0.07 10*3/uL 0.01-0.07 code = 704-7) [id number] 04:37:00 Test Item Value Reference Range Interpretation Comments POCT PREG (test code = 1605) negative Lab Interpretation (test code = Normal 80344-5) [facility], [id number] 14:05:00 Test Item Value Reference Range Interpretation Comments Coronavirus NAAT, COVD19 SARS results, (test code = including Patient EASXBQM2GSMV) Name, or MRN, were Coronavirus NAAT, COVD19 ical-devices/emergenc (test code = p-fsq-hqhrwnhlpihoqc. KSDFAZF3XGUJ2.1) SARS-CoV-2 NAAT Result: Positive by RT-PCR A (test code = SARS-CoV-2 NAAT Result:) COVID-19 Status: AsymptomaticHCG, Urine Qual (LAB)2021-07-09 14:05:00 Test Item Value Reference Range Interpretation Comments HCG, Urine, Qual (test code = HCGU) Negative Negative Drug Screen,[id number] 14:05:00 Test Item Value Reference Range Interpretation [...] Negative code = UPROP) UA, Urinalysis w [id number] 14:05:00 Test Item Value Reference Range Interpretation Comments Color,Urine (test code = Yellow Yellow UCOL) Clarity,Urine (test code = Clear Clear UCLAR) Ph, Urine (test code = UPH) 8.5 5.0-8.0 H Specific [place],Urine 1.020 1.005-1.030 N (test code = USG) [...] Seen A UBACT) Complete Blood Count Auto [id number] 13:20:00 Test Item Value Reference Range Interpretation [...] code = NRBCP) 0 % Comprehensive Metabolic [id number] 13:20:00 Test Item Value Reference Range Interpretation [...] 72 U/L 46-116 N = ALP) Ethanol [id number] 13:20:00 Test Item Value Reference Range Interpretation [...] = HCGU) Negative Negative UA, Urinalysis Rflx Cult/[id number] 00:20:00 Test Item Value Reference Range Interpretation Comments Color,Urine (test code = Yellow Yellow UCOL) Clarity,Urine (test code = Clear Clear UCLAR) PH,Urine (test code = 7.5 5.5-8.5 UPH.XX) Specific [place],Urine 1.020 1.005-1.030 N (test code = USG) [...] cells/uL Negative (test code = ULEU) Urine [id number] 00:20:00 Test Item Value Reference Range Interpretation Comments RBC,Urine (test code = URBC.XX) 0-5 /HPF None Seen WBC,Urine (test code = UWBC.XX) 6-10 /HPF None Seen A Squamous Epithelial Cell,Urine 74-200 /HPF None Seen A (test code = USQEPI.XX) Bacteria,Urine (test code = Moderate /HPF None Seen A UBACT) Drug Screen,[id number] 00:20:00 Test Item Value Reference Range Interpretation [...] code = UPROP) Complete Blood Count Auto [id number] 00:09:00 Test Item Value Reference Range Interpretation [...] code = NRBCP) 0 % Comprehensive Metabolic [id number] 00:09:00 Test Item Value Reference Range Interpretation [...] 83 U/L 46-116 N = ALP) Ethanol [id number] 00:09:00 Test Item Value Reference Range Interpretation Comments Ethanol (test code < 3 mg/dL The pharm acological = ETOH) response to blo od alcohol levels mayvary from individual to i ndividual. The fatal ezio ntrationhas been reported t o be >400mg/dL. Coronavirus PCR, COVID19 [id number] 00:08:00 Test Item Value Reference Range Interpretation Comments Coronavirus PCR, For use under Emergency COVID19 Rapid (test Use Authorization (EUA) code = SARSCOV2) only. Coronavirus PCR, Reference Range: COVID19 Rapid (test Negative code = TJMNHCC51.1) SARS-CoV-2 PCR Result: Negative by RT-PCR (test code = SARS-CoV-2 PCR Result:) COVID-19 Status: AsymptomaticCARBAMAZEPHINE (TEGRETOL)2020-09-26 08:42:00 Test Item Value Reference Range Interpretation Comments CARBAMAZPN (test code = 98A) 19.3 ug/mL 4.0-12.0 HH CARBAMAZEPHINE (TEGRETOL)2020-09-26 05:04:00 Test Item Value Reference Range Interpretation Comments CARBAMAZPN (test code = 98A) 20.1 ug/mL 4.0-12.0 HH URINALYSIS WITH [id number] 02:45:00 Test Item Value Reference Range Interpretation [...] code = USPERM) /HPF NONE DRUGS OF [id number] 02:43:00 Test Item Value Reference Range Interpretation [...] the FDA and the College of the [place] (CAP) are more stringent than those required for this test. Therefore, the result should be interpreted with caution and close attention to other clinical and epidemiological data PRO TIME AND [id number] 00:51:00 Test Item Value Reference Range Interpretation [...] Heparin. Order Code is ANTI-XA COMPREHENSIVE METABOLIC [id number] 00:47:00 Test Item Value Reference Range Interpretation [...] = 133 See_Comment [Automated GFR) mL/min/1.73m\\S\\2 message] e system which generated this result transmit gómez reference range : >=90. The reference range was not used to interpret this result as normal/abnormal . GFR 154 See_Comment [Automated KITTITIAN (test mL/min/1.73m\\S\\2 message] The code = GFRAA) [...] to interpret this result as normal/abnormal . [id number] 00:47:00 Test Item Value Reference Range Interpretation Comments ACETAMINPH (test code = 94M) 3.6 ug/mL 10.0-30.0 L CARDIAC [id number] 00:47:00 Test Item Value Reference Range Interpretation [...] interpret th is result as normal/abnormal . [id number] 00:42:00 Test Item Value Reference Range Interpretation Comments SALICYLATE (test code = 94B) <1.7 mg/dL 2.8-20.0 L SERUM [id number] 00:38:00 Test Item Value Reference Range Interpretation [...]
[2022-04-01] MEDS ORDERED: KETOROLAC 30 MG/ML INJ ONE (17:15)
[2022-04-01] MEDS ORDERED: ONDANSETRON 4 MG/2 ML VIAL ONE (17:15)
[2022-04-01] MEDS ORDERED: NA CHLORIDE 0.9% 1,000 ML ONE (17:16)
[2022-04-01 17:27] LABS: Absolute Lymphocytes (CBC) 1.9 K/uL (0.7-4.9); Hematocrit 41.3 % (36.0-45.0); Lymphocytes % 28.7 % (15.3-44.8); MPV 8.2 fL (7.6-11.3); RBC Red Blood Cell Count 4.86 M/uL (3.86-4.86)
[2022-04-01 17:28] LABS: Urine Blood 3+ (Negative); Urine Glucose Negative (Negative); Urine Protein Negative (Negative); Urine Specific Gravity 1.025 (1.005-1.030); Urine pH 6.5 (5.0-7.0)
[2022-04-01 17:34] LABS: Albumin 3.7 g/dL (3.4-5.0); Bilirubin Total 0.2 mg/dL (0.2-1.0); Potassium 3.7 mmol/L (3.5-5.1)
[2022-04-01 17:46] LABS: Urine Specific Gravity/Preg 1.025 (1.005-1.030)
--- NOTE | 2022-04-01 18:57 | ER ---
Nurse's Notes [facility] Name: Vanda Pompa Age: 21 yrs Sex: Female : 2000 Arrival Date: 04/01/2022 Time: 16:32 Bed 19 Private MD: Diagnosis: Nausea with vomiting, unspecified Presentation: 04/01 16:35 Chief complaint: EMS states: h/a, abd pain, vomiting for past 2 days. Exposed to covid+ eh3 person 4 days ago. Coronavirus screen: Vaccine status: Patient reports receiving the 2nd dose of the covid vaccine. Ebola Screen: No symptoms or risks identified at this time. Initial Sepsis Screen: Does the patient meet any 2 criteria? No. Patient's initial sepsis screen is negative. Does the patient have a suspected source of infection? No. Patient's initial sepsis screen is negative. Risk Assessment: Do you want to hurt yourself or someone else? Patient reports no desire to harm self or others. Onset of symptoms was March 30, 2022. 16:35 Method Of Arrival: EMS: [facility] 16:35 Acuity: FREDY 3 eh3 Triage Assessment: 16:37 General: Appears in no apparent distress. uncomfortable, Behavior is calm, cooperative, eh3 appropriate for age. Pain: Complains of pain in head Pain does not radiate. Pain currently is 8 out of 10 on a pain scale. Quality of pain is described as aching, pressure, Pain began 2-3 days ago. Is continuous. EENT: No signs and/or symptoms were reported regarding the EENT system. Neuro: Level of Consciousness is awake, alert, obeys commands, Oriented to person, place, time, situation. Cardiovascular: Capillary refill < 3 seconds Patient's skin is warm and dry. Respiratory: Airway is patent Respiratory effort is even, unlabored. GI: Abdomen is flat, non-distended, Reports lower abdominal pain, upper abdominal pain, intolerance of fluids, intolerance of food, vomiting. : No signs and/or symptoms were reported regarding the genitourinary system. Derm: No signs and/or symptoms reported regarding the dermatologic system. Musculoskeletal: No signs and/or symptoms reported regarding the musculoskeletal system. 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 - Social history:: Smoking status: unknown. Screenin:57 Abuse screen: Denies threats or abuse. Denies injuries from another. Nutritional eh3 screening: No deficits noted. Tuberculosis screening: No symptoms or risk factors identified. Fall Risk None identified. Assessment: 17:30 Reassessment: Patient and/or family updated on plan of care and expected duration. Pain eh3 level reassessed. Patient is alert, oriented x 3, equal unlabored respirations, skin warm/dry/pink. 18:30 Reassessment: Patient and/or family updated on plan of care and expected duration. Pain eh3 level reassessed. Patient is alert, oriented x 3, equal unlabored respirations, skin warm/dry/pink. Vital Signs: 16:35 BP 105 / 76; Pulse 91; Resp 18; Pulse Ox 99% on R/A; eh3 16:37 Temp 97.9(O); eh3 17:30 BP 103 / 79; Pulse 73; Resp 18; Pulse Ox 100% on R/A; eh3 18:30 BP 116 / 69; Pulse 71; Resp 18; Pulse Ox 100% on R/A; eh3 ED Course: 16:32 Patient arrived in ED. eb 16:33 [facility]udi Thomason [facility]-C [facility] kb 16:33 Bethel Gloria MD is Attending Physician. kb 16:35 Valery Vaughn RN is Primary Nurse. eh3 16:37 Triage completed. eh3 16:37 Arm band placed on right wrist. eh3 16:37 Patient has correct armband on for positive identification. Bed in low position. Call eh3 light in reach. Side rails up X2. 17:07 COVID-19 SARS RT PCR (Document "Date of Onset" if Symptomatic) Sent. eh3 17:07 Inserted saline lock: 20 gauge in left antecubital area, using aseptic technique. Blood eh3 collected. 18:39 Diet: Patient given water. Tolerated well. eh3 18:56 Diet: Patient given snack. Patient given juice. Tolerated well. eh3 18:57 No provider procedures requiring assistance completed. eh3 19:12 CBC with Diff Sent. tw5 19:13 CMP Sent. tw5 19:13 Lipase Sent. tw5 19:20 IV discontinued, bleeding controlled, Pressure dressing applied, Patient pulled out own tw5 IV. Pressure drsg applied by RN upon entering room. Education provided to patient regarding the risks of removing own IV. Administered Medications: 17:23 Drug: NS 0.9% 1000 ml Route: IV; Rate: 1 bolus; Site: left antecubital; 3 17:23 Drug: Zofran (Ondansetron) 4 mg Route: IVP; Site: left antecubital; 3 18:21 Follow up: Response: No adverse reaction eh3 17:23 Drug: Ketorolac 15 mg Route: IVP; Site: left antecubital; 3 18:20 Follow up: Response: Pain is decreased eh3 Medication: 18:58 VIS not applicable for this client. 3 Outcome: 18:56 Discharge ordered by . kb 19:26 Patient left the ED. 3 Signatures: Trudi Thomason FNP-C FNP-Ana María Merrill Tiffany tw5 Valery Vaughn, OLGA RN eh3
--- NOTE | 2022-04-01 18:57 | EDPHYS ---
Physician Documentation [facility] Name: Vanda Pompa Age: 21 yrs Sex: Female : 2000 Arrival Date: 04/01/2022 Time: 16:32 Bed 19 Private MD: ED Physician Bethel Gloria HPI: 04/02 00:39 This 21 yrs old Female presents to ER via EMS with complaints of Flu Symptoms. kb 00:39 The patient presents to the emergency department with nausea, vomiting. Onset: The kb symptoms/episode began/occurred yesterday. Possible causes: sick contacts. The symptoms are aggravated by food , The symptoms are alleviated by nothing. Associated signs and symptoms: Pertinent positives: abdominal pain, nausea, vomiting. Severity of symptoms: At their worst the symptoms were moderate in the emergency department the symptoms are unchanged. The patient has not experienced similar symptoms in the past. The patient has not recently seen a physician. Pt reports nausea and vomiting since yesterday and was exposed to covid. 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 - Social history:: Smoking status: unknown. ROS: 04/02 00:38 Constitutional: Negative for fever, chills, and weight loss. kb Abdomen/GI: Positive for abdominal pain, nausea and vomiting, Negative for diarrhea, constipation. All other systems are negative. Exam: 00:38 Constitutional: This is a well developed, well nourished patient who is awake, alert, kb and in no acute distress. Head/Face: Normocephalic, atraumatic. ENT: Moist Mucous membranes Cardiovascular: Regular rate and rhythm with a normal S1 and S2. No gallops, murmurs, or rubs. No pulse deficits. Respiratory: Respirations even and unlabored. No increased work of breathing. Talking in full sentences Skin: Warm, dry with normal turgor. Normal color. MS/ Extremity: Pulses equal, no cyanosis. Neurovascular intact. Full, normal range of motion. Neuro: Awake and alert, GCS 15, oriented to person, place, time, and situation. Moves all extremities. Normal gait. Psych: Awake, alert, with orientation to person, place and time. Behavior, mood, and affect are within normal limits. 00:38 Abdomen/GI: Inspection: abdomen appears normal, Bowel sounds: normal, Palpation: soft, in all quadrants, mild abdominal tenderness, in all quadrants. Vital Signs: 04/01 16:35 BP 105 / 76; Pulse 91; Resp 18; Pulse Ox 99% on R/A; eh3 16:37 Temp 97.9(O); eh3 17:30 BP 103 / 79; Pulse 73; Resp 18; Pulse Ox 100% on R/A; eh3 18:30 BP 116 / 69; Pulse 71; Resp 18; Pulse Ox 100% on R/A; eh3 MDM: 16:34 Patient medically screened. 04/02 00:37 Data reviewed: vital signs, nurses notes. Data interpreted: Pulse oximetry: on room air kb is 100 %. Interpretation: normal. Counseling: I had a detailed discussion with the patient and/or guardian regarding: the historical points, exam findings, and any diagnostic results supporting the discharge/admit diagnosis, lab results, the need for outpatient follow up, a family practitioner, to return to the emergency department if symptoms worsen or persist or if there are any questions or concerns that arise at home. 00:40 ED course: Pt nontoxic in appearance. Tolerating po intake. 04/01 16:52 Order name: CBC with Diff 04/01 16:52 Order name: CMP 04/01 16:52 Order name: Lipase 04/01 16:52 Order name: COVID-19 SARS RT PCR (Document "Date of Onset" if Symptomatic) 04/01 17:28 Order name: Urine Dipstick-Ancillary; Complete Time: 17:35 EDMS 04/01 17:29 Order name: Urine --Ancillary (enter results) 04/01 17:31 Order name: CBC with Automated Diff; Complete Time: 17:35 EDMS 04/01 17:34 Order name: Comprehensive Metabolic Panel; Complete Time: 17:35 EDMS 04/01 17:34 Order name: Lipase; Complete Time: 17:35 EDMS 04/01 17:46 Order name: Urine --Ancillary; Complete Time: 17:51 EDMS 04/01 17:58 Order name: SARS-COV-2 RT PCR; Complete Time: 17:58 EDMS 04/01 16:52 Order name: IV Saline Lock; Complete Time: 17:07 kb 04/01 16:52 Order name: Labs collected and sent; Complete Time: 17:07 kb 04/01 16:52 Order name: Urine Dipstick-Ancillary (obtain specimen); Complete Time: 17:28 kb 04/01 16:52 Order name: Urine Test (obtain specimen); Complete Time: 17:28 kb 04/01 17:59 Order name: PO challenge; Complete Time: 18:39 kb Administered Medications: 04/01 17:23 Drug: NS 0.9% 1000 ml Route: IV; Rate: 1 bolus; Site: left antecubital; eh3 17:23 Drug: Zofran (Ondansetron) 4 mg Route: IVP; Site: left antecubital; eh3 18:21 Follow up: Response: No adverse reaction eh3 17:23 Drug: Ketorolac 15 mg Route: IVP; Site: left antecubital; eh3 18:20 Follow up: Response: Pain is decreased eh3 Disposition Summary: 04/01/22 18:56 Discharge Ordered Location: Home kb Condition: Stable kb Diagnosis - Nausea with vomiting, unspecified kb Followup: kb - With: Emergency Department - When: As needed - Reason: Worsening of condition Followup: kb - With: Private Physician - When: 2 - 3 days - Reason: Recheck today's complaints, Continuance of care, Re-evaluation by your physician Discharge Instructions: - Discharge Summary Sheet kb - Nausea and Vomiting, Adult, Byye-sc-Jinq kb Forms: - Medication Reconciliation Form kb - Thank You Letter kb - Antibiotic Education kb - Prescription Opioid Use kb Prescriptions: - Zofran 4 mg Oral Tablet - take 1 tablet by ORAL route every 8 hours As needed; 10 tablet; Refills: 0, kb Product Selection Permitted Signatures: Dispatcher [employer] Trudi Mehta FNP-C FNP-Valery Bustos, RN RN eh3
[2022-04-02 08:05] VITALS: TEMP 97.9
[2022-04-02 08:06] VITALS: O2SAT 100
[2022-04-02 08:07] VITALS: BP 116/69
== END 2022-04-01 19:26 | disposition home or self-care (01) ==
LOC: ER 16:30
DX: R11.2 Nausea with vomiting, unspecified (principal); Z20.822 Contact with and (suspected) exposure to COVID-19
CPT/HCPCS: 85025; 36415; 81025; 81003; 83690; 80053; 96375; 96374; 99284; U0003; J7030; J2405

== ENCOUNTER 2022-04-02 21:24 | Emergency (ER) | payer OTHER ==
--- OUTSIDE RECORDS SUMMARY | 2022-04-02 21:34 | XMS REPORT | Continuity of Care Document ---
:2000 Author Organization [facility] t Address [address] [place] [address] Care Team Providers Name Role Phone Pcp, Patient Does Not Have A Primary Care Physician +[id number] HANDY DOMINGUEZ Attending Clinician Unavailable DEONNA MONTES Attending Clinician Unavailable Deonna Ferrell S Attending Clinician Doctor Unassigned, [place] Attending Clinician Unavailable MIKE JACOBS Attending Clinician [...] Expiration Date S ource [facility] MED[facility] STAR [id number] 2021 00:00:00 [facility] [id number] 2016 CHOICE [place] STAR 00:00:00 Problems Condition [...] partial in partial 00:00: g of this [place] remission, remission, 00 note Me dical most most might be Branch 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 Diagnosis per recent hospitali zaiton Abnormal Abnormal Disease Active 2019-07 Unive rs uterine uterine 0-20 ity of bleeding bleeding 00:00: [place] (AUB) (AUB) 00 Medical Branch SANDRA SANDRA Disease Active Univers (generaliz (generaliz -11 it y of ed anxiety ed anxiety 00:00: [place] disorder) disorder) 00 [facility] Branch Attention Attention Disease Active 2008-07 Overview: Univers deficit deficit 2-22 [place] ity o f hyperactiv hyperactiv 00:00: g of this [place] ity ity 00 note Medical disorder disorder might be Bran ch (ADHD) (ADHD) different from the original. 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 Utility Allergies, Adverse Reactions, Alerts Allergy Allergy Status Severity Reaction(s) Onset Inactive Treating Comm ents Source Name Type Date Date Clinician No Known DA Active U [facility] Drug 07-09 Allergie 00:00: s 00 No Known DA Active U 2020-07 [facility] Drug 07-25 Allergie 00:00: s 00 Unable DA [facility] Assess 00:00: 00 No Known DA Active [facility] s NO KNOWN Drug Active Univers ALLERGIE Class ity of [facility] Family History Family Member Diagnosis Comments Start Date Stop Date Source Natural brother Psychiatry Universit [facility] Natural father Alcohol abuse Univers ity [facility] Natural father Substance abuse Unive rsity of [facility] Natural mother Psychiatry [facility] Social History Social Habit Start Date Stop Date Quantity Comments Source History SDOH University o f Alcohol Comment [place] Med ical Branch Exposure to 2022-03-21 2022-03-31 Not sure University SARS-CoV-2 00:00:00 22:47:00 [facility] (event) Branch Alcohol intake 2022-03-28 2022-03-28 Lifetime University of 00:00:00 00:00:00 non-drinker [facility] (finding) [place] Tobacco use and 2022-01-17 2022-01-17 Smokeless tobacco Un iversity of exposure 00:00:00 00:00:00 non-user [place] [facility] History [facility] 2020-04-20 2020-04-20 1 [place] o f Alcohol Frequency 00:00:00 00:00:00 [place] M edical Branch History [facility] 2020-04-20 2020-04-20 99 [place] o f Alcohol Std 00:00:00 00:00:00 [place] Medical Drinks Branch History [facility] 2020-04-20 2020-04-20 1 [place] o f Alcohol Binge 00:00:00 00:00:00 [place] Medic al Branch Sex Assigned At [birth year] [facility] y of 00:00:00 00:00:00 [facility] Smoking Status Start Date Stop Date Source Never smoked tobacco [facility] Medications Ordered Filled Start [...] ity of (PF)) 04:15: 04:36 ONCE, 1 [place] injection 4 00 :00 dose, On Medi torito mg Ronel Branch 03/31/22 at 2315, ARLEN ARIPiprazol Yes [id number] 300mg 300 mg by Univers e (ABILIFY 03-17 Intramuscu ity of [facility]) 00:00: lar route [place] 300 mg sers 00 once every Me dical month. Branch ARIPiprazol 2022-0 Yes 300mg 300 mg by Univers e (ABILIFY 9-15 Intramuscu ity of [place]) 00:00: lar route [place] 300 mg sers 00 once every Me dical month. Branch ARIPiprazol 2022-0 Yes [id number] 300mg 300 mg by Univers e (ABILIFY 9-15 Intramuscu ity of [place]) 00:00: lar route [place] 300 mg sers 00 once every Me dical month. Branch ARIPiprazol 2-0 Yes 300mg 300 mg by Univers e (ABILIFY 9-15 Intramuscu ity of [place]) 00:00: lar route [place] 300 mg sers 00 once every Me dical month. Branch ARIPiprazol 2-0 Yes [id number] 300mg 300 mg by Univers e (ABILIFY 9-15 Intramuscu ity of [place]) 00:00: lar route [place] 300 mg sers 00 once every Me dical month. Branch ARIPiprazol 2-0 Yes 300mg 300 mg by Univers e (ABILIFY 9-15 Intramuscu ity of [place]) 00:00: lar route [place] 300 mg sers 00 once every Me dical month. Branch ARIPiprazol 2-0 Yes [id number] 300mg 300 mg by Univers e (ABILIFY 9-15 Intramuscu ity of [place]) 00:00: lar route [place] 300 mg sers 00 once every Me dical month. Branch ARIPiprazol 2-0 Yes 300mg 300 mg by Univers e (ABILIFY 9-15 Intramuscu ity of [facility]) 00:00: lar route [place] 300 mg sers 00 once every Me dical month. Branch ARIPiprazol 2022-0 Yes [id number] 300mg 300 mg by Univers e (ABILIFY 9-15 Intramuscu ity of [facility]) 00:00: lar route [place] 300 mg sers 00 once every Me dical month. Branch ARIPiprazol 2-0 Yes 300mg 300 mg by Univers e (ABILIFY 9-15 Intramuscu ity of [place]) 00:00: lar route [place] 300 mg sers 00 once every Me dical month. Branch ARIPiprazol 2021- Yes [id number] 10mg Take 1 U nivers e 10 mg 9-08 10-09 tablet by ity of tablet 00:00: 04:59 mouth in [place] 00 :00 the [facility] for 30 days. ARIPiprazol 2021- Yes [id number] 10mg Take 1 U nivers e 10 mg 9-08 10-09 tablet by ity of tablet 00:00: 04:59 mouth in [place] 00 :00 [facility] for 30 days. ARIPiprazol 2021- Yes [id number] 10mg Take 1 U nivers e 10 mg 9-08 10-09 tablet by ity of tablet 00:00: 04:59 mouth in [place] 00 :00 [facility] for 30 days. ARIPiprazol 2021- Yes [id number] 10mg Take 1 U nivers e 10 mg 9-08 10-09 tablet by ity of tablet 00:00: 04:59 mouth in [place] 00 :00 [facility] for 30 days. ARIPiprazol 2021- Yes [id number] 10mg Take 1 U nivers e 10 mg 9-08 10-09 tablet by ity of tablet 00:00: 04:59 mouth in [place] 00 :00 [facility] for 30 days. ARIPiprazol 2021- Yes [id number] 10mg Take 1 U nivers e 10 mg 9-08 10-09 tablet by ity of tablet 00:00: 04:59 mouth in [place] 00 :00 [facility] for 30 days. ARIPiprazol 2021- Yes [id number] 10mg Take 1 U nivers e 10 mg 9-08 10-09 tablet by ity of tablet 00:00: 04:59 mouth in [place] 00 :00 [facility] for 30 days. ARIPiprazol 2021- Yes [id number] 300mg 300 mg by Univers e (ABILIFY 03-09 Intramuscu it y [facility]) 00:00: 05:59 [place] 300 mg sers 00 :00 once every Me dical month for Branch 90 days. ARIPiprazol 2021- No [id number] 300mg 300 mg by Univers e (ABILI 03-09 Intramuscu it y [facility]) 00:00: 00:00 [place] route [place] 300 mg sers 00 :00 once every Me dical month for Branch 90 days. ARIPiprazol 2021- No [id number] 300mg 300 [facility]) 00:00: 00:00 lar route [place] 300 mg sers 00 :00 once every Me dical month for Branch 90 days. ARIPiprazol 2021- No [id number] 300mg 300 [facility] y [facility]) 00:00: 00:00 lar route [place] 300 mg sers 00 :00 once every Me dical month for Branch 90 days. QUEtiapine 2021- No [id number] 50mg Take 1 Un [place] 50 mg 7-18 -08 tablet by ity of tablet 00:00: 00:00 mouth in [place] 00 :00 the Medical morning Branch and 1 tablet in the evening. Do all this for 60 days. QUEtiapine 2021- No [id number] 50mg Take 1 Un [place] 50 mg 7-18 -08 tablet by ity of tablet 00:00: 00:00 mouth in [place] 00 :00 the Medical morning Branch and 1 tablet in the evening. Do all this for 60 days. QUEtiapine 2021- No [id number] 50mg Take 1 Un [place] 50 mg 7-18 09-08 tablet by ity of tablet 00:00: 00:00 mouth in [place] 00 :00 the Medical morning Branch and 1 tablet in the evening. Do all this for 60 days. QUEtiapine 2021-2021- No [id number] 50mg Take 1 Un [place] 50 mg 7-18 09-08 tablet by ity of tablet 00:00: 00:00 mouth in [place] 00 :00 the Medical morning Branch and 1 tablet in the evening. Do all this for 60 days. lithium 2021- No [id number] 300mg Take 1 U nivers carbonate 12-07 tablet by ity of CR 300 mg 00:00: 04:59 mouth at [place] SR tablet 00 :00 bedtime Medical for 90 Branch days. lithium No [id number] 450mg Take 1 U nivers carbonate 12-07 tablet by ity of CR 450 mg 00:00: 04:59 mouth [place] SR tablet 00 :00 every Medical morning Branch for 90 days. lithium No [id number] 300mg Take 1 U nivers carbonate 12-07 tablet by ity of CR 300 mg 00:00: 04:59 mouth at [place] SR tablet 00 :00 bedtime Medical for 90 Branch days. lithium No [id number] 450mg Take 1 U nivers carbonate 12-07 tablet by ity of CR 450 mg 00:00: 04:59 mouth [place] SR tablet 00 :00 every Medical morning Branch for 90 days. lithium No [id number] 300mg Take 1 U nivers carbonate 12-07 tablet by ity of CR 300 mg 00:00: 04:59 mouth at [place] SR tablet 00 :00 bedtime Medical for 90 Branch days. lithium No [id number] 450mg Take 1 U nivers carbonate 12-07 tablet by ity of CR 450 mg 00:00: 04:59 mouth [place] SR tablet 00 :00 every Medical morning Branch for 90 days. lithium No [id number] 300mg Take 1 U nivers carbonate 12-07 tablet by ity of CR 300 mg 00:00: 04:59 mouth at [place] SR tablet 00 :00 bedtime Medical for 90 Branch days. lithium No [id number] 450mg Take 1 U nivers carbonate 12-07 tablet by ity of CR 450 mg 00:00: 04:59 mouth [place] SR tablet 00 :00 every Medical morning Branch for 90 days. miSOPROStoL Yes [id number] 200ug Take 1 Univers 200 mcg 4-29 tablet by ity of tablet 00:00: mouth [place] 00 SEE-INSTRU Medical CTIONS. Branch Take one tab the night before and one tab the morning of procedure miSOPROStoL 2021-0 Yes [id number] 200ug Take 1 Univers 200 mcg 4-29 tablet by ity of tablet 00:00: mouth [place] SEE-INSTRU Medical CTIONS. Branch Take one tab the night before and one tab the morning of procedure miSOPROStoL 0 Yes [id number] 200ug Take 1 Univers 200 mcg 4-29 tablet by ity of tablet 00:00: mouth [place] SEE-INSTRU Medical CTIONS. Branch Take one tab the night before and one tab the morning of procedure miSOPROStoL 0 Yes [id number] 200ug Take 1 Univers 200 mcg 4-29 tablet by ity of tablet 00:00: mouth [place] SEE-INSTR Medical CTIONS. Branch Take one tab the night before and one tab the morning of procedure miSOPROStoL 0 Yes [id number] 200ug Take 1 Univers 200 mcg 4-29 tablet by ity of tablet 00:00: mouth [place] [facility] Medical CTIONS. Branch Take one tab the night before and one tab the morning of procedure miSOPROStoL 0 Yes [id number] 200ug Take 1 Univers 200 mcg 4-29 tablet by ity of tablet 00:00: mouth [place] [facility] Medical CTIONS. Branch Take one tab the night before and one tab the morning of procedure miSOPROStoL 0 Yes [id number] 200ug Take 1 Univers 200 mcg 4-29 tablet by ity of tablet 00:00: mouth [facility] Medical CTIONS. Branch Take one tab the night before and one tab the morning of procedure Immunizations Ordered Immunization Filled Immunization Date Status Commen ts Source Name Name SARS-COV-2 COVID-2022-03-17 Completed Unive rsity of MIKE-SUCROSE VACCINE 00:00:00 [facility] 12 YRS+, BIVALENT Branch 0.3ML, IM, (PFIZER ARITA TOP BOOSTER) SARS-COV-2 COVID-19 2022-03-17 Completed Unive rsity of MIKE-SUCROSE VACCINE 00:00:00 [facility] 12 YRS+, BIVALENT Branch 0.3ML, IM, (PFIZER ARITA TOP BOOSTER) SARS-COV-2 COVID-19 2022-03-17 Completed Unive rsity of MIKE-SUCROSE VACCINE 00:00:00 [facility] Medical 12 YRS+, BIVALENT Branch 0.3ML, IM, (PFIZER ARITA TOP BOOSTER) SARS-COV-2 COVID-19 2022-03-17 Completed Unive rsity of MIKE-SUCROSE VACCINE 00:00:00 [facility] 12 YRS+, BIVALENT Branch 0.3ML, IM, (PFIZER ARITA TOP BOOSTER) SARS-COV-2 COVID-19 2022-03-17 Completed Unive rsity of MIKE-SUCROSE VACCINE 00:00:00 [facility] 12 YRS+, BIVALENT Branch 0.3ML, IM, (PFIZER ARITA TOP BOOSTER) SARS-COV-2 COVID-19 2022-03-17 Completed Unive rsity of MIKE-SUCROSE VACCINE 00:00:00 [facility] 12 YRS+, BIVALENT Branch 0.3ML, IM, (PFIZER ARITA TOP BOOSTER) SARS-COV-2 COVID-19 2021-06-24 Completed Unive rsity of PFIZER VACCINE 00:00:00 [facility] SARS-COV-2 COVID-19 2021-06-24 Completed Unive rsity of PFIZER VACCINE 00:00:00 [facility] SARS-COV-2 COVID-19 2021-06-24 Completed Unive rsity of PFIZER VACCINE 00:00:00 [facility] SARS-COV-2 COVID-19 2021-06-24 Completed Unive rsity of PFIZER VACCINE 00:00:00 [facility] SARS-COV-2 COVID-19 2021-06-24 Completed Unive rsity of PFIZER VACCINE 00:00:00 [facility] SARS-COV-2 COVID-19 2021-06-24 Completed Unive rsity of PFIZER VACCINE 00:00:00 [facility] SARS-COV-2 COVID-19 2021-06-24 Completed Unive rsity of PFIZER VACCINE 00:00:00 [facility] Branch SARS-COV-2 COVID-19 2020-11-21 Completed Unive rsity of PFIZER VACCINE 00:00:00 [facility] SARS-COV-2 COVID-19 2020-11-21 Completed Unive rsity of PFIZER VACCINE 00:00:00 [facility] SARS-COV-2 COVID-19 2020-11-21 Completed Unive rsity of PFIZER VACCINE 00:00:00 [facility] SARS-COV-2 COVID-19 2020-11-21 Completed Unive rsity of PFIZER VACCINE 00:00:00 [facility] SARS-COV-2 COVID-19 2020-11-21 Completed Unive rsity of PFIZER VACCINE 00:00:00 [facility] SARS-COV-2 COVID-19 2020-11-21 Completed Unive rsity of PFIZER VACCINE 00:00:00 [facility] SARS-COV-2 COVID-19 2020-11-21 Completed Unive rsity of PFIZER VACCINE 00:00:00 [facility] SARS-COV-2 COVID-19 2020-10-24 Completed Unive rsity of PFIZER VACCINE 00:00:00 [facility] SARS-COV-2 COVID-19 2020-10-24 Completed Unive rsity of PFIZER VACCINE 00:00:00 [facility] SARS-COV-2 COVID-19 2020-10-24 Completed Unive rsity of PFIZER VACCINE 00:00:00 [facility] SARS-COV-2 COVID-19 2020-10-24 Completed Unive rsity of PFIZER VACCINE 00:00:00 [facility] SARS-COV-2 COVID-19 2020-10-24 Completed Unive rsity of PFIZER VACCINE 00:00:00 [facility] SARS-COV-2 COVID-19 2020-10-24 Completed Unive rsity of PFIZER VACCINE 00:00:00 [facility] SARS-COV-2 COVID-19 2020-10-24 Completed Unive rsity of PFIZER VACCINE 00:00:00 [facility] Influenza Virus 2020-07-08 Completed Universit y of [...] OMV 2018-10-31 Completed Univ ersity of 00:00:00 [place] [facility] Meningococcal B, OMV 2018-10-31 Completed Univ ersity of 00:00:00 [place] [facility] Meningococcal B, OMV 2018-10-31 Completed Univ ersity of 00:00:00 [facility] Branch Meningococcal B, OMV 2018-10-31 Completed Univ ersity of 00:00:00 [facility] Branch Meningococcal B, OMV 2018-10-31 Completed Univ ersity of 00:00:00 [facility] Branch Meningococcal B, OMV 2018-10-31 Completed Univ ersity of 00:00:00 [facility] Branch Meningococcal B, OMV 2018-10-31 Completed Univ ersity of 00:00:00 [facility] Influenza Virus 2018-08-29 Completed Universit y of Vaccine Quad .5 mL IM 00:00:00 [place] [facility] 6+ MO Branch Meningococcal B, OMV 2018-08-29 Completed Univ ersity of 00:00:00 [facility] Influenza Virus 2018-08-29 Completed Universit y of Vaccine Quad .5 mL IM 00:00:00 [place] [facility] 6+ MO Branch Meningococcal B, OMV 2018-08-29 Completed Univ ersity of 00:00:00 [facility] Influenza Virus 2018-08-29 Completed Universit y of Vaccine Quad .5 mL IM 00:00:00 [place] [facility] 6+ MO Branch Meningococcal B, OMV 2018-08-29 Completed Univ ersity of 00:00:00 [facility] Influenza Virus 2018-08-29 Completed Universit y of Vaccine Quad .5 mL IM 00:00:00 [place] [facility] 6+ [place] Branch Meningococcal B, OMV 2018-08-29 Completed Univ ersity of 00:00:00 [facility] Influenza Virus 2018-08-29 Completed Universit y of Vaccine Quad .5 mL IM 00:00:00 [place] [facility] 6+ MO Branch Meningococcal B, OMV 2018-08-29 Completed Univ ersity of 00:00:00 [facility] Influenza Virus 2018-08-29 Completed Universit y of Vaccine Quad .5 mL IM 00:00:00 [place] [facility] 6+ MO Branch Meningococcal B, OMV 2018-08-29 Completed Univ ersity of 00:00:00 [facility] Influenza Virus 2018-08-29 Completed Universit y of Vaccine Quad .5 mL IM 00:00:00 [place] [facility] 6+ MO Branch Meningococcal B, OMV 2018-08-29 Completed Univ ersity of 00:00:00 [facility] Meningococcal 2018-01-17 Completed University of Polysaccharide 00:00:00 [place] Medi otrito (groups A, C, Y and Branc h W-135) conjugate vaccine (MCV4P) Meningococcal 2018-01-17 Completed University of Polysaccharide 00:00:00 [place] Medi torito (groups A, C, Y and Branc h W-135) conjugate vaccine (MCV4P) Meningococcal 2018-01-17 Completed University of Polysaccharide 00:00:00 [place] Medi torito (groups A, C, Y and Branc h W-135) conjugate vaccine (MCV4P) Meningococcal 2018-01-17 Completed University of Polysaccharide 00:00:00 [place] Medi torito (groups A, C, Y and Branc h W-135) conjugate vaccine (MCV4P) Meningococcal 2018-01-17 Completed University of Polysaccharide 00:00:00 [place] Medi torito (groups A, C, Y and Branc h W-135) conjugate vaccine (MCV4P) Meningococcal 2018-01-17 Completed University of Polysaccharide 00:00:00 [place] Medi torito (groups A, C, Y and Branc h W-135) conjugate vaccine (MCV4P) Meningococcal 2018-01-17 Completed University of Polysaccharide 00:00:00 [place] Medi torito (groups A, C, Y and Branc h W-135) conjugate vaccine (MCV4P) Influenza Virus 2017-04-12 Completed Universit y of Vaccine Quad IM 3+ 00:00:00 [facility] Influenza Virus 2017-04-12 Completed Universit y of Vaccine Quad IM 3+ 00:00:00 [facility] [place] Influenza Virus 2017-04-12 Completed Universit y of Vaccine Quad IM 3+ 00:00:00 [facility] [place] Influenza Virus 2017-04-12 Completed Universit y of Vaccine Quad IM 3+ 00:00:00 [facility] [place] Influenza Virus 2017-04-12 Completed Universit y of Vaccine Quad IM 3+ 00:00:00 [facility] [place] Influenza Virus 2017-04-12 Completed Universit y of Vaccine Quad IM 3+ 00:00:00 [facility] [place] Influenza Virus 2017-04-12 Completed Universit y of Vaccine Quad IM 3+ 00:00:00 [facility] [place] HPV9 2017-02-01 Completed University of 00:00:00 [facility] HPV9 2017-02-01 Completed University of 00:00:00 [facility] HPV9 2017-02-01 Completed University of 00:00:00 [facility] HPV9 2017-02-01 Completed University of 00:00:00 [facility] HPV9 2017-02-01 Completed University of 00:00:00 [facility] HPV9 2017-02-01 Completed University of 00:00:00 [facility] HPV9 2017-02-01 Completed University of 00:00:00 [facility] HPV 2016-01-20 Completed University of 00:00:00 [facility] HPV 2016-01-20 Completed University of 00:00:00 [facility] HPV 2016-01-20 Completed University of 00:00:00 [facility] HPV 2016-01-20 Completed University of 00:00:00 [facility] HPV 2016-01-20 Completed University of 00:00:00 [facility] HPV 2016-01-20 Completed University of 00:00:00 [facility] HPV 2016-01-20 Completed University of 00:00:00 [facility] Influenza Virus 2015-07-08 Completed Universit y of Vaccine Quad IM 3+ 00:00:00 [facility] [place] HPV9 2015-07-08 Completed University of 00:00:00 [facility] Influenza Virus 2015-07-08 Completed Universit y of Vaccine Quad IM 3+ 00:00:00 [facility] [place] HPV9 2015-07-08 Completed University of 00:00:00 [facility] Influenza Virus 2015-07-08 Completed Universit y of Vaccine Quad IM 3+ 00:00:00 [facility] [place] HPV9 2015-07-08 Completed University of 00:00:00 [facility] Influenza Virus 2015-07-08 Completed Universit y of Vaccine Quad IM 3+ 00:00:00 [facility] [place] HPV9 2015-07-08 Completed University of 00:00:00 [facility] Influenza Virus 2015-07-08 Completed Universit y of Vaccine Quad IM 3+ 00:00:00 [facility] [place] HPV9 2015-07-08 Completed University of 00:00:00 [facility] Influenza Virus 2015-07-08 Completed Universit y of Vaccine Quad IM 3+ 00:00:00 [facility] [place] HPV9 2015-07-08 Completed University of 00:00:00 [facility] Influenza Virus 2015-07-08 Completed Universit y of Vaccine Quad IM 3+ 00:00:00 [facility] [place] HPV9 2015-07-08 Completed University of 00:00:00 [facility] Influenza Virus 2014-04-02 Completed Universit y of Vaccine (3+ yrs) 00:00:00 [facility] Influenza Virus 2014-04-02 Completed Universit y of Vaccine (3+ yrs) 00:00:00 [facility] Influenza Virus 2014-04-02 Completed Universit y of Vaccine (3+ yrs) 00:00:00 [facility] Influenza Virus 2014-04-02 Completed Universit y of Vaccine (3+ yrs) 00:00:00 [facility] Influenza Virus 2014-04-02 Completed Universit y of Vaccine (3+ yrs) 00:00:00 [facility] Influenza Virus 2014-04-02 Completed Universit y of Vaccine (3+ yrs) 00:00:00 [facility] Influenza Virus 2014-04-02 Completed Universit y of Vaccine (3+ yrs) 00:00:00 [facility] Influenza Virus 2013-05-22 Completed Universit y of Vaccine (3+ yrs) 00:00:00 [facility] Meningococcal 2013-05-22 Completed University of Polysaccharide 00:00:00 [place] Medi torito (groups A, C, Y and Branc h W-135) conjugate vaccine (MCV4P) TDAP 2013-05-22 Completed University of 00:00:00 [facility] Influenza Virus 2013-05-22 Completed Universit y of Vaccine (3+ yrs) 00:00:00 [facility] Meningococcal 2013-05-22 Completed University of Polysaccharide 00:00:00 [place] Medi torito (groups A, C, Y and Branc h W-135) conjugate vaccine (MCV4P) TDAP 2013-05-22 Completed University of 00:00:00 [facility] Influenza Virus 2013-05-22 Completed Universit y of Vaccine (3+ yrs) 00:00:00 [facility] Meningococcal 2013-05-22 Completed University of Polysaccharide 00:00:00 [place] Medi torito (groups A, C, Y and Branc h W-135) conjugate vaccine (MCV4P) TDAP 2013-05-22 Completed University of 00:00:00 [facility] Influenza Virus 2013-05-22 Completed Universit y of Vaccine (3+ yrs) 00:00:00 [facility] Meningococcal 2013-05-22 Completed University of Polysaccharide 00:00:00 [place] Medi torito (groups A, C, Y and Branc h W-135) conjugate vaccine (MCV4P) TDAP 2013-05-22 Completed University of 00:00:00 [facility] Influenza Virus 2013-05-22 Completed Universit y of Vaccine (3+ yrs) 00:00:00 [facility] Meningococcal 2013-05-22 Completed University of Polysaccharide 00:00:00 [place] [facility] (groups A, C, Y and Branc h W-135) conjugate vaccine (MCV4P) TDAP 2013-05-22 Completed University of 00:00:00 [facility] Influenza Virus 2013-05-22 Completed Universit y of Vaccine (3+ yrs) 00:00:00 [facility] Meningococcal 2013-05-22 Completed University of Polysaccharide 00:00:00 [place] [facility] (groups A, C, Y and Branc h W-135) conjugate vaccine (MCV4P) TDAP 2013-05-22 Completed University of 00:00:00 [facility] Influenza Virus 2013-05-22 Completed Universit y of Vaccine (3+ yrs) 00:00:00 [facility] Meningococcal 2013-05-22 Completed University of Polysaccharide 00:00:00 [place] [facility] (groups A, C, Y and Branc h W-135) conjugate vaccine (MCV4P) TDAP 2013-05-22 Completed University of 00:00:00 [facility] Influenza Virus 2012-06-13 Completed Universit y of Vaccine 00:00:00 [facility] Influenza Virus 2012-06-13 Completed Universit y of Vaccine 00:00:00 [facility] Influenza Virus 2012-06-13 Completed Universit y of Vaccine 00:00:00 [facility] Influenza Virus 2012-06-13 Completed Universit y of Vaccine 00:00:00 [facility] Influenza Virus 2012-06-13 Completed Universit y of Vaccine 00:00:00 [facility] Influenza Virus 2012-06-13 Completed Universit y of Vaccine 00:00:00 [facility] Influenza Virus 2012-06-13 Completed Universit y of Vaccine 00:00:00 [facility] Influenza Virus 2011-05-18 Completed Universit y of Vaccine 00:00:00 [facility] Influenza Virus 2011-05-18 Completed Universit y of Vaccine 00:00:00 [facility] Influenza Virus 2011-05-18 Completed Universit y of Vaccine 00:00:00 [facility] Influenza Virus 2011-05-18 Completed Universit y of Vaccine 00:00:00 [facility] Influenza Virus 2011-05-18 Completed Universit y of Vaccine 00:00:00 [facility] Influenza Virus 2011-05-18 Completed Universit y of Vaccine 00:00:00 [facility] Influenza Virus 2011-05-18 Completed Universit y of Vaccine 00:00:00 [facility] Influenza Virus 2010-05-26 Completed Universit y of Vaccine 00:00:00 [facility] Influenza Virus 2010-05-26 Completed Universit y of Vaccine 00:00:00 [facility] Influenza Virus 2010-05-26 Completed Universit y of Vaccine 00:00:00 [facility] Influenza Virus 2010-05-26 Completed Universit y of Vaccine 00:00:00 [facility] Influenza Virus 2010-05-26 Completed Universit y of Vaccine 00:00:00 [facility] Influenza Virus 2010-05-26 Completed Universit y of Vaccine 00:00:00 [facility] Influenza Virus 2010-05-26 Completed Universit y of Vaccine 00:00:00 [facility] Influenza Virus 2009-06-23 Completed Universit y of Vaccine 00:00:00 [facility] Influenza Virus 2009-06-23 Completed Universit y of Vaccine 00:00:00 [facility] Influenza Virus 2009-06-23 Completed Universit y of Vaccine 00:00:00 [facility] Influenza Virus 2009-06-23 Completed Universit y of Vaccine 00:00:00 [facility] Influenza Virus 2009-06-23 Completed Universit y of Vaccine 00:00:00 [facility] Influenza Virus 2009-06-23 Completed Universit y of Vaccine 00:00:00 [facility] Influenza Virus 2009-06-23 Completed Universit y of Vaccine 00:00:00 [facility] Influenza Virus 2009-05-20 Completed Universit y of Vaccine 00:00:00 [facility] Influenza Virus 2009-05-20 Completed Universit y of Vaccine 00:00:00 [facility] Influenza Virus 2009-05-20 Completed Universit y of Vaccine 00:00:00 [facility] Influenza Virus 2009-05-20 Completed Universit y of Vaccine 00:00:00 [facility] Influenza Virus 2009-05-20 Completed Universit y of Vaccine 00:00:00 [facility] Influenza Virus 2009-05-20 Completed Universit y of Vaccine 00:00:00 [facility] Influenza Virus 2009-05-20 Completed Universit y of Vaccine 00:00:00 [facility] Influenza Virus 2007-06-01 Completed Universit y of Vaccine 00:00:00 [facility] Influenza Virus 2007-06-01 Completed Universit y of Vaccine 00:00:00 [facility] Influenza Virus 2007-06-01 Completed Universit y of Vaccine 00:00:00 [facility] Influenza Virus 2007-06-01 Completed Universit y of Vaccine 00:00:00 [facility] Influenza Virus 2007-06-01 Completed Universit y of Vaccine 00:00:00 [facility] Influenza Virus 2007-06-01 Completed Universit y of Vaccine 00:00:00 [facility] Influenza Virus 2007-06-01 Completed Universit y of Vaccine 00:00:00 [facility] DTAP 2006-05-24 Completed University of 00:00:00 [facility] Proquad 2006-05-24 Completed University of (MMR/VARICELLA) 00:00:00 [facility] Polio (IPV/OPV) 2006-05-24 Completed Universit y of 00:00:00 [facility] DTAP 2006-05-24 Completed University of 00:00:00 [facility] Proquad 2006-05-24 Completed University of (MMR/VARICELLA) 00:00:00 [facility] Polio (IPV/OPV) 2006-05-24 Completed Universit y of 00:00:00 [facility] DTAP 2006-05-24 Completed University of 00:00:00 [facility] Proquad 2006-05-24 Completed University of (MMR/VARICELLA) 00:00:00 [facility] Polio (IPV/OPV) 2006-05-24 Completed Universit y of 00:00:00 [facility] DTAP 2006-05-24 Completed University of 00:00:00 [facility] Proquad 2006-05-24 Completed University of (MMR/VARICELLA) 00:00:00 [facility] Polio (IPV/OPV) 2006-05-24 Completed Universit y of 00:00:00 [facility] DTAP 2006-05-24 Completed University of 00:00:00 [facility] Proquad 2006-05-24 Completed University of (MMR/VARICELLA) 00:00:00 [facility] Polio (IPV/OPV) 2006-05-24 Completed Universit y of 00:00:00 [facility] DTAP 2006-05-24 Completed University of 00:00:00 [facility] Proquad 2006-05-24 Completed University of (MMR/VARICELLA) 00:00:00 [facility] Polio (IPV/OPV) 2006-05-24 Completed Universit y of 00:00:00 [facility] DTAP 2006-05-24 Completed University of 00:00:00 [facility] Proquad 2006-05-24 Completed University of (MMR/VARICELLA) 00:00:00 [facility] Polio (IPV/OPV) 2006-05-24 Completed Universit y of 00:00:00 [facility] HEPATITIS A 2005-05-19 Completed University of 00:00:00 [facility] Influenza Virus 2005-05-19 Completed Universit y of Vaccine 00:00:00 [facility] HEPATITIS A 2005-05-19 Completed University of 00:00:00 [facility] Influenza Virus 2005-05-19 Completed Universit y of Vaccine 00:00:00 [facility] HEPATITIS A 2005-05-19 Completed University of 00:00:00 [facility] Influenza Virus 2005-05-19 Completed Universit y of Vaccine 00:00:00 [facility] HEPATITIS A 2005-05-19 Completed University of 00:00:00 [facility] Influenza Virus 2005-05-19 Completed Universit y of Vaccine 00:00:00 [facility] HEPATITIS A 2005-05-19 Completed University of 00:00:00 [facility] Influenza Virus 2005-05-19 Completed Universit y of Vaccine 00:00:00 [facility] HEPATITIS A 2005-05-19 Completed University of 00:00:00 [facility] Influenza Virus 2005-05-19 Completed Universit y of Vaccine 00:00:00 [facility] HEPATITIS A 2005-05-19 Completed University of 00:00:00 [facility] Influenza Virus 2005-05-19 Completed Universit y of Vaccine 00:00:00 [facility] HEPATITIS A 2004-05-17 Completed University of 00:00:00 [facility] HEPATITIS A 2004-05-17 Completed University of 00:00:00 [facility] HEPATITIS A 2004-05-17 Completed University of 00:00:00 [facility] HEPATITIS A 2004-05-17 Completed University of 00:00:00 [facility] HEPATITIS A 2004-05-17 Completed University of 00:00:00 [facility] HEPATITIS A 2004-05-17 Completed University of 00:00:00 [facility] HEPATITIS A 2004-05-17 Completed University of 00:00:00 [facility] Polio (IPV/OPV) 2003-08-21 Completed Universit y of 00:00:00 [facility] Polio (IPV/OPV) 2003-08-21 Completed Universit y of 00:00:00 [facility] Polio (IPV/OPV) 2003-08-21 Completed Universit y of 00:00:00 [facility] Polio (IPV/OPV) 2003-08-21 Completed Universit y of 00:00:00 [facility] HIB 4 Dose Schedule 2003-05-22 Completed Unive rsity of 00:00:00 [facility] MMR 2003-05-22 Completed University of 00:00:00 [facility] Pneumococcal 7 2003-05-22 Completed University of Conjugate, PCV7 00:00:00 [place] [facility] (Prevnar7) Branch Varicella 2003-05-22 Completed University of (varivax)(chicken 00:00:00 [place] [facility] pox) [facility] HIB 4 Dose Schedule 2003-05-22 Completed Unive rsity of 00:00:00 [facility] MMR 2003-05-22 Completed University of 00:00:00 [facility] Pneumococcal 7 2003-05-22 Completed University of Conjugate, PCV7 00:00:00 [place] [facility] (Prevnar7) Branch Varicella 2003-05-22 Completed University of (varivax)(chicken 00:00:00 [place] [facility] pox) [facility] HIB 4 Dose Schedule 2003-05-22 Completed Unive rsity of 00:00:00 [facility] Branch MMR 2003-05-22 Completed University of 00:00:00 [facility] Branch Pneumococcal 7 2003-05-22 Completed University of Conjugate, PCV7 00:00:00 [place] [facility] (Prevnar7) Branch Varicella 2003-05-22 Completed University of (varivax)(chicken 00:00:00 [facility] edical pox) Branch HIB 4 Dose Schedule 2003-05-22 Completed Unive rsity of 00:00:00 [facility] Branch MMR 2003-05-22 Completed University of 00:00:00 [facility] Pneumococcal 7 2003-05-22 Completed University of Conjugate, PCV7 00:00:00 [place] [facility] (Prevnar7) Branch Varicella 2003-05-22 Completed University of (varivax)(chicken 00:00:00 [facility] edical pox) Branch DTAP 2003-01-01 Completed University of 00:00:00 [facility] HIB 4 Dose Schedule 2003-01-01 Completed Unive rsity of 00:00:00 [facility] Hep B, Adol or Pedi 2003-01-01 Completed Unive rsity of Dosage 00:00:00 [facility] Pneumococcal 7 2003-01-01 Completed University of Conjugate, PCV7 00:00:00 [place] [facility] (Prevnar7) Branch DTAP 2003-01-01 Completed University of 00:00:00 [facility] HIB 4 Dose Schedule 2003-01-01 Completed Unive rsity of 00:00:00 [facility] Hep B, Adol or Pedi 2003-01-01 Completed Unive rsity of Dosage 00:00:00 [facility] Pneumococcal 7 2003-01-01 Completed University of Conjugate, PCV7 00:00:00 [place] [facility] (Prevnar7) Branch DTAP 2003-01-01 Completed University of 00:00:00 [facility] HIB 4 Dose Schedule 2003-01-01 Completed Unive rsity of 00:00:00 [facility] Hep B, Adol or Pedi 2003-01-01 Completed Unive rsity of Dosage 00:00:00 [facility] Pneumococcal 7 2003-01-01 Completed University of Conjugate, PCV7 00:00:00 [place] [facility] (Prevnar7) Branch DTAP 2003-01-01 Completed University of 00:00:00 [facility] HIB 4 Dose Schedule 2003-01-01 Completed Unive rsity of 00:00:00 [facility] Hep B, Adol or Pedi 2003-01-01 Completed Unive rsity of Dosage 00:00:00 [facility] Pneumococcal 7 2003-01-01 Completed University of Conjugate, PCV7 00:00:00 [place] [facility] (Prevnar7) Branch DTAP 2002 Completed University of 00:00:00 [facility] HIB 4 Dose Schedule 2002 Completed Unive rsity of 00:00:00 [facility] Pneumococcal 7 2002 Completed University of Conjugate, PCV7 00:00:00 [place] [facility] (Prevnar7) Branch Polio (IPV/OPV) 2002 Completed Universit y of 00:00:00 [facility] DTAP 2002 Completed University of 00:00:00 [facility] HIB 4 Dose Schedule 2002 Completed Unive rsity of 00:00:00 [facility] Pneumococcal 7 2002 Completed University of Conjugate, PCV7 00:00:00 [place] [facility] (Prevnar7) Branch Polio (IPV/OPV) 2002 Completed Universit y of 00:00:00 [facility] DTAP 2002 Completed University of 00:00:00 [facility] HIB 4 Dose Schedule 2002 Completed Unive rsity of 00:00:00 [facility] Pneumococcal 7 2002 Completed University of Conjugate, PCV7 00:00:00 [place] [facility] (Prevnar7) Branch Polio (IPV/OPV) 2002 Completed Universit y of 00:00:00 [facility] DTAP 2002 Completed University of 00:00:00 [facility] HIB 4 Dose Schedule 2002 Completed Unive rsity of 00:00:00 [facility] Pneumococcal 7 2002 Completed University of Conjugate, PCV7 00:00:00 [place] [facility] (Prevnar7) Branch Polio (IPV/OPV) 2002 Completed Universit y of 00:00:00 [facility] DTAP 2002 Completed University of 00:00:00 [facility] HIB 4 Dose Schedule 2002 Completed Unive rsity of 00:00:00 [facility] Branch Hep B, Adol or Pedi 2002 Completed Unive rsity of Dosage 00:00:00 [facility] Polio (IPV/OPV) 2002 Completed Universit y of 00:00:00 [facility] DTAP 2002 Completed University of 00:00:00 [facility] HIB 4 Dose Schedule 2002 Completed Unive rsity of 00:00:00 [facility] Branch Hep B, Adol or Pedi 2002 Completed Unive rsity of Dosage 00:00:00 [facility] Polio (IPV/OPV) 2002 Completed Universit y of 00:00:00 [facility] DTAP 2002 Completed University of 00:00:00 [facility] HIB 4 Dose Schedule 2002 Completed Unive rsity of 00:00:00 [facility] Hep B, Adol or Pedi 2002 Completed Unive rsity of Dosage 00:00:00 [facility] Polio (IPV/OPV) 2002 Completed Universit y of 00:00:00 [facility] DTAP 2002 Completed University of 00:00:00 [facility] HIB 4 Dose Schedule 2002 Completed Unive rsity of 00:00:00 [facility] Branch Hep B, Adol or Pedi 2002 Completed Unive rsity of Dosage 00:00:00 [facility] Polio (IPV/OPV) 2002 Completed Universit y of 00:00:00 [facility] Hep B, Adol or Pedi 2002 Completed Unive rsity of Dosage 00:00:00 [facility] Hep B, Adol or Pedi 2002 Completed Unive rsity of Dosage 00:00:00 [facility] Hep B, Adol or Pedi 2002 Completed Unive rsity of Dosage 00:00:00 [facility] Hep B, Adol or Pedi 2002 Completed Unive rsity of Dosage 00:00:00 [facility] Hep B, Adol or Pedi 2002 Completed Unive rsity of Dosage 00:00:00 [facility] Hep B, Adol or Pedi 2002 Completed Unive rsity of Dosage 00:00:00 [facility] Hep B, Adol or Pedi 2002 Completed Unive rsity of Dosage 00:00:00 [facility] Vital Signs Vital Name Observation Time Observation Value Comments Source Systolic blood 2022-04-01 06:00:00 118 mm[Hg] Univer sity of pressure [facility] Diastolic blood 2022-04-01 06:00:00 92 mm[Hg] Unive rsity of pressure [facility] Heart rate 2022-04-01 06:00:00 78 /min Universi ty of [facility] Respiratory rate 2022-04-01 06:00:00 16 /min Univ ersity of [facility] Oxygen saturation in 2022-04-01 06:00:00 98 /min [facility] Arterial blood by [facility] Pulse oximetry Branch Body height 2022-04-01 03:48:00 160 cm Universi ty of [facility] Body weight 2022-04-01 03:48:00 56.7 kg [facility]i ty of [facility] [place] BMI 2022-04-01 03:48:00 22.14 kg/m2 [facility] ty of [facility] [place] Height 2020-09-25 23:56:00 165.1 CM Weight 2020-09-25 23:56:00 2.69 KG Systolic blood 2022-03-28 14:54:00 116 mm[Hg] Univer sity of pressure [facility] Diastolic blood 2022-03-28 14:54:00 87 mm[Hg] Unive rsity of pressure [facility] Heart rate 2022-03-28 14:54:00 113 /min [facility]i ty [facility] Respiratory rate 2022-03-28 14:54:00 18 /min Univ ersity of [facility] Body height 2022-03-28 14:54:00 160 cm [facility]i ty [facility] Body weight 2022-03-28 14:54:00 51.71 kg [facility]i ty [facility] BMI 2022-03-28 14:54:00 20.19 kg/m2 [facility] [place] Body temperature 2022-02-24 18:37:00 37 Linda Univ ersity of [facility] [place] Body weight 2022-02-24 18:37:00 51.801 kg [facility] BMI 2022-02-24 18:37:00 20.23 kg/m2 [facility] Systolic blood 2022-02-21 12:51:00 133 mm[Hg] [facility] Diastolic blood 2022-02-21 12:51:00 49 mm[Hg] [facility] Heart rate 2022-02-21 12:51:00 108 /min [facility] Respiratory rate 2022-02-21 12:51:00 18 /min [facility] Body height 2022-02-21 12:51:00 160 cm [facility] Oxygen saturation in 2022-01-24 00:45:00 98 /min [facility] Arterial blood by [facility] Pulse oximetry Branch Head 2009-07-13 18:51:[address] [facility] Occipital-frontal [facility] circumference by [employer] Branch measure Procedures Procedure Date / Time Performing Clinician Source Performed POCT TEST 2022-04-01 04:37:00 Deonna Montes [facility] LIPASE 2022-04-01 04:36:00 Deonna Montes [facility] COMP. METABOLIC PANEL 2022-04-01 04:36:00 Deonna Montes [facility] ([id number]) [facility] CBC WITH DIFF 2022-04-01 04:36:00 Deonna Montes [facility] URINALYSIS 2022-04-01 04:36:00 Deonna Montes [facility] NOTICE OF PRIVACY 2022-04-01 03:37:12 Doctor Unassigned, [facility] PRACTICES [facility] [place] CONSENT/REFUSAL FOR 2022-04-01 03:36:55 Doctor Rosamariassigned, [facility] DIAGNOSIS AND TREATMENT [facility] SARS-COV-2 COVID-19 2022-03-17 16:49:14 Doctor Unassigned, Unive [facility] MIKE-SUCROSE VACCINE 12 [facility] [place] YRS+, BIVALENT 0.3ML, IM, (PFIZER ARITA TOP BOOSTER) SARS-COV-2 COVID-19 2022-03-17 16:49:14 Doctor Unassigned, Unive rsity of [place] MIKE-SUCROSE VACCINE 12 [facility] [place] YRS+, BIVALENT 0.3ML, IM, (PFIZER ARITA TOP BOOSTER) XR PELVIS 3+ VW 2022-02-24 18:13:00 Jaguar Rizzo o monica [facility] EXTERNAL PROVIDER RECORDS 2022-02-22 05:01:00 Doctor [facility] [place] EMERGENCY SERVICES 2022-01-23 05:01:00 Doctor Parra [facility] AGREEMENTS AND [facility] AUTHORIZATIONS EMERGENCY DEPARTMENT 2022-01-23 05:01:00 Doctor Parra [facility] DOCUMENTS [facility] [place] Encounters Start End Encounter Admission Attending Care Care Encounter Source Date/Time Date/Time Type Type Clinicians Facility Department ID 2021-11-02 Outpatient [facility] [id number] [place] 11:00:33 [id number] Health 2021-07-09 Inpatient [facility] [id number] [facility] 12:46:00 14 2021-05-25 Inpatient [facility] [id number] [facility] 23:19:00 94 2022-03-31 2022-04-01 [id number] Univers 22:46:00 01:29:[address] [facility] 2022-03-31 2022-04-01 [facility] [id number] Univers 22:46:00 01:29:00 Deonna COLMENARES 350.1.13.10 i ty of [place] 4.2.7.2.686 [facility] [id number] [facility] 084 Branch 2022-03-31 2022-03-31 Orders Doctor SHOOK [id number] [id number] Univers 00:00:00 00:00:00 Only RosamariassEDITH gama 350.1.13.10 ity [facility] [facility] 4.2.7.2.686 Harley [id number] [facility] 009 Branch 2022-03-28 2022-03-28 Outpatient Escobar JACOBS [facility] [id number] Univers 10:15:00 12:05:24 MIKE erickson [facility] 2022-03-28 2022-03-28 Travel 1.2.840.1 [id number] Univers 00:00:00 00:00:00 05139.1.1 350.1.13.10 ity of 3.104.2.7 [place]7.3.698 [place] .3.56[place] 084.8 Medica l .8 [place] 2022-03-17 2022-03-17 Imm/Inj Sol Mack P 1.2.840.1 [id number] Univers 11:30:00 12:25:54 Visit Ana LuisaJanice 79714.1.1 ity of 3.104.2.7 [place] .3.386318 Medica l .8 [place] 2022-03-17 2022-03-17 Outpatient R FREDERICK [facility] [id number] Univers 11:30:00 11:30:00 SOL ity of [facility] 2022-03-17 2022-03-17 Outpatient R [facility] [id number] Univers 11:30:00 11:30:00 [id number] ity of [facility] 2022-03-17 2022-03-17 Travel 1.2.840.1 1.2.518.859 [id number] Univers 00:00:00 00:00:00 91452.1.1 350.1.13.10 ity of 3.104.2.7 [place]7.3.698 [place] .3.711769 084.8 Medica l .8 [place] 2022-02-24 2022-02-24 [facility] 1.2.840.6 [id number] Univers 13:02:19 23:59:00 Encounter Jaguar 90091.1.1 it y of 3.104.2.7 [place] .3.895679 Medica l .8 [place] 2022-02-24 2022-02-24 [facility] 1.2.840.8 [id number] Univers 13:00:00 14:33:28 Visit Jaguar 81068.1.1 ity of 3.104.2.7 [place] .3.175242 Medica l .8 Branch 2022-02-24 2022-02-24 Travel 1.2.840.1 1.2.046.100 [id number] Univers 00:00:00 00:00:00 29421.1.1 350.1.13.10 ity of 3.104.2.7 4.[place].7.3.698 [place] .3.698822 084.8 Medica l .8 Branch 2022-02-22 2022-02-22 Orders Doctor 1.2.840.3 [id number] Univers 00:00:00 00:00:00 Only Unassigned, 50712.1.1 ity of [facility] 3.104.2.7 [place] .3.659998 Medica l .8 Branch 2022-02-21 2022-02-21 Travel 1.2.840.1 1.2.677.941 [id number] Univers 00:00:00 00:00:00 59676.1.1 350.1.13.10 ity of 3.104.2.7 4.[place].7.3.698 [place] .3.908159 084.8 Medica l .8 [place] 2022-01-23 2022-01-23 Emergency Kitty Kessler 1.2.840.1 [id number] Univers 19:42:00 21:04:00 Bree 50689.1.1 ity of 3.104.2.7 [place] .3.629689 Medica l .8 Branch 2022-01-23 2022-01-23 Travel 1.2.840.1 1.2.979.170 [id number] Univers 00:00:00 00:00:00 68595.1.1 350.1.13.10 ity of 3.104.2.7 4.2.7.3.698 [place] .3.847810 084.8 Medica l .8 Branch 2022-01-17 2022-01-17 Travel 1.2.840.1 1.2.925.389 [id number] Univers 00:00:00 00:00:00 06308.1.1 350.1.13.10 ity of 3.104.2.7 4.2.7.3.698 [place] .3.316946 084.8 Medica l .8 [place] 2021-12-31 2021-12-31 Office Ame Ramirez 1.2.840.2 [id number] Univers 16:00:00 17:22:54 Visit Maggie Brooks 88898.1.1 ity of 3.104.2.7 [place] .3.066845 Medica l .8 [place] 2021-12-31 2021-12-31 Travel 1.2.840.1 1.2.252.583 [id number] Univers 00:00:00 00:00:00 75616.1.1 350.1.13.10 ity of 3.104.2.7 4.2.7.3.698 [place] .3.543408 084.8 Medica l .8 [place] 2021-12-20 2021-12-20 Travel 1.2.840.1 1.2.039.760 [id number] Univers 00:00:00 00:00:00 78826.1.1 350.1.13.10 ity of 3.104.2.7 4.[place].7.3.698 [place] .3.670166 084.8 Medica l .8 [place] 2021-07-09 2021-07-09 Emergency [facility] [place] [id number] [facility] 12:46:00 12:46:00 14 2021-05-25 2021-05-25 Emergency [facility] [place] [id number] [facility] 23:19:00 23:19:00 94 2020-09-25 2020-09-26 Emergency E [facility] [id number] [facility] 23:49:00 10:04:00 [facility] Results Test Description Test Time Test Comments Results Result Comments Source COMP. METABOLIC PANEL (23421) 2022-04-01 04:58:46 Test Item Value Reference Range Interpretation Comme nts NA (test code = 9560671299) 139 mmol/L 135-145 K (test code = 0158243075) 5.0 mmol/L 3.5-5 CL (test code = 4423664545) 102 mmol/L 98-108 CO2 TOTAL (test code = 27 mmol/L 23-31 2491016505) AGAP (test code = 8901828005) 2-16 BUN (test code = 1296312563) 13 mg/dL 7-23 GLUCOSE (test code = 0414625829) 104 mg/dL 70-110 CREATININE (test code = 0.69 mg/dL 0.5-1.04 0499108673) TOTAL BILI (test code = 0.5 mg/dL 0.1-1.7 3134495939) CALCIUM (test code = 5370458768) 9.6 mg/dL 8.6-10.6 T PROTEIN (test code = 7.2 g/dL 6.3-8.2 9506059709) ALBUMIN (test code = 0679735312) 4.6 g/dL 3.5-5 ALK PHOS (test code = 8479494890) 60 U/L 34-122 ALTv (test code = 1742-6) 15 U/L 5-35 AST(SGOT) (test code = 26 U/L 13-40 1521445299) eGFR (test code = 8890725891) mL/min/1.73m2 MEDHAT (test code = MEDHAT) Association [...] or urine or abnormalities in imaging tests). [facility] 04:58:25 Test Item Value Reference Range Interpretation Comments LIPASE (test code = 9252165836) 71 U/L 0-220 Lab Interpretation (test code = Normal 41626-3) [facility] WITH [id number] 04:46:42 Test Item Value Reference Range Interpretation Comments WBC (test code = See_Comment [Automated message] 6090-2) The system [employer] generated this result transmitted ref erence range: 4.30 - 1 1.10 10*3/?L. The re ference range was not u sed to interpret this result as normal/abnor mal. RBC (test code = See_Comment [Automated message] 939-8) The system [employer] generated this result transmitted ref erence range: [...] RDW-SD (test code 42.5 fL 39-49.9 = 25772-0) RDW-CV (test code 13.2 % 12-15.5 = 788-0) PLT (test code = See_Comment [Automated message] 730-3) The system whic h generated this result transmitted ref erence range: 166 - 35 8 10*3/?L. The re ference range was not u sed to interpret this result as normal/abnor mal. MPV (test code = 10.4 fL 9.5-12.9 85686-0) NRBC/100 WBC (test See_Comment [Automat ed message] code = 4137803056) The syste m which generated this result transmitted ref erence range: 0.0 - 10 .0 /100 WBCs. The refer ence range was not u sed to interpret this result as normal/abnor mal. NRBC x10^3 (test See_Comment [Automated message] code = 9319115420) The syste m which generated this result transmitted ref erence range: 10*3/?L. The reference range was not used to interpr et this result as normal/abnormal . GRAN MAT (NEUT) % 69.5 % (test code = 770-8) IMM GRAN % (test 0.40 % code = 7333951219) LYMPH % (test code 23.3 % = 736-9) MONO % (test code 5.3 % = 5905-5) EOS % (test code = 0.7 % 713-8) BASO % (test code 0.8 % = 706-2) GRAN MAT 5.73 10*3/uL 1.88-7.09 x10^3(ANC) (test code = 5915862933) IMM GRAN x10^3 0.03 10*3/uL 0-0.06 (test code = 2004772546) LYMPH x10^3 (test 1.92 10*3/uL 1.32-3.29 code = 731-0) MONO x10^3 (test 0.44 10*3/uL 0.33-0.92 code = 742-7) EOS x10^3 (test 0.06 10*3/uL 0.03-0.39 code = 711-2) BASO x10^3 (test 0.07 10*3/uL 0.01-0.07 code = 704-7) [facility] [id number] 04:37:00 Test Item Value Reference Range Interpretation Comments POCT PREG (test code = 1605) negative Lab Interpretation (test code = Normal 05320-0) [facility] CenterCoronavirus NAAT, [id number] 14:05:00 Test Item Value Reference Range Interpretation Comments Coronavirus NAAT, COVD19 SARS results, (test code = including Patient TAAZINJ2CIDU) Name, or MRN, were Coronavirus NAAT, COVD19 ical-devices/emergenc (test code = q-xcz-lbjrdtwxpfwavq. CORHCJS8DOWF7.1) SARS-CoV-2 NAAT Result: Positive by RT-PCR A (test code = SARS-CoV-2 NAAT Result:) COVID-19 Status: AsymptomaticHCG, Urine Qual (LAB)2021-07-09 14:05:00 Test Item Value Reference Range Interpretation Comments HCG, Urine, Qual (test code = HCGU) Negative Negative Drug Screen,[id number] 14:05:00 Test Item Value Reference Range Interpretation [...] Negative code = UPROP) UA, Urinalysis w [id number] 14:05:00 Test Item Value Reference Range Interpretation Comments Color,Urine (test code = Yellow Yellow UCOL) Clarity,Urine (test code = Clear Clear UCLAR) Ph, Urine (test code = UPH) 8.5 5.0-8.0 H Specific [place],Urine 1.020 1.005-1.030 N (test code = USG) [...] Seen A UBACT) Complete Blood Count Auto [id number] 13:20:00 Test Item Value Reference Range Interpretation [...] code = NRBCP) 0 % Comprehensive Metabolic [id number] 13:20:00 Test Item Value Reference Range Interpretation [...] 72 U/L 46-116 N = ALP) Ethanol [id number] 13:20:00 Test Item Value Reference Range Interpretation [...] = HCGU) Negative Negative UA, Urinalysis Rflx Cult/[id number] 00:20:00 Test Item Value Reference Range Interpretation Comments Color,Urine (test code = Yellow Yellow UCOL) Clarity,Urine (test code = Clear Clear UCLAR) PH,Urine (test code = 7.5 5.5-8.5 UPH.XX) Specific [place],Urine 1.020 1.005-1.030 N (test code = USG) [...] cells/uL Negative (test code = ULEU) Urine [id number] 00:20:00 Test Item Value Reference Range Interpretation Comments RBC,Urine (test code = URBC.XX) 0-5 /HPF None Seen WBC,Urine (test code = UWBC.XX) 6-10 /HPF None Seen A Squamous Epithelial Cell,Urine 74-200 /HPF None Seen A (test code = USQEPI.XX) Bacteria,Urine (test code = Moderate /HPF None Seen A UBACT) Drug Screen,[id number] 00:20:00 Test Item Value Reference Range Interpretation [...] code = UPROP) Complete Blood Count Auto [id number] 00:09:00 Test Item Value Reference Range Interpretation [...] code = NRBCP) 0 % Comprehensive Metabolic [id number] 00:09:00 Test Item Value Reference Range Interpretation [...] 83 U/L 46-116 N = ALP) Ethanol [id number] 00:09:00 Test Item Value Reference Range Interpretation Comments Ethanol (test code < 3 mg/dL The pharm acological = ETOH) response to blo od alcohol levels mayvary from individual to i ndividual. The fatal ezio ntrationhas been reported t o be >400mg/dL. Coronavirus PCR, COVID19 [id number] 00:08:00 Test Item Value Reference Range Interpretation Comments Coronavirus PCR, For use under Emergency COVID19 Rapid (test Use Authorization (EUA) code = SARSCOV2) only. Coronavirus PCR, Reference Range: COVID19 Rapid (test Negative code = CMKMHRY97.1) SARS-CoV-2 PCR Result: Negative by RT-PCR (test code = SARS-CoV-2 PCR Result:) COVID-19 Status: AsymptomaticCARBAMAZEPHINE (TEGRETOL)2020-09-26 08:42:00 Test Item Value Reference Range Interpretation Comments CARBAMAZPN (test code = 98A) 19.3 ug/mL 4.0-12.0 HH CARBAMAZEPHINE (TEGRETOL)2020-09-26 05:04:00 Test Item Value Reference Range Interpretation Comments CARBAMAZPN (test code = 98A) 20.1 ug/mL 4.0-12.0 HH URINALYSIS WITH [id number] 02:45:00 Test Item Value Reference Range Interpretation [...] code = USPERM) /HPF NONE DRUGS OF [id number] 02:43:00 Test Item Value Reference Range Interpretation [...] the FDA and the [employer] (CAP) are more stringent than those required for this test. Therefore, the result should be interpreted with caution and close attention to other clinical and epidemiological data PRO TIME AND [id number] 00:51:00 Test Item Value Reference Range Interpretation [...] Heparin. Order Code is ANTI-XA COMPREHENSIVE METABOLIC [id number] 00:47:00 Test Item Value Reference Range Interpretation [...] . GFR 154 See_Comment [Automated TURKISH (test mL/min/1.73m\\S\\2 message] The code = GFRAA) [...] to interpret this result as normal/abnormal . [id number] 00:47:00 Test Item Value Reference Range Interpretation Comments ACETAMINPH (test code = 94M) 3.6 ug/mL 10.0-30.0 L CARDIAC [id number] 00:47:00 Test Item Value Reference Range Interpretation [...] interpret th is result as normal/abnormal . [id number] 00:42:00 Test Item Value Reference Range Interpretation Comments SALICYLATE (test code = 94B) <1.7 mg/dL 2.8-20.0 L SERUM [id number] 00:38:00 Test Item Value Reference Range Interpretation [...]
[2022-04-02 23:01] LABS: Urine Blood 3+ (Negative); Urine Glucose Negative (Negative); Urine Protein Trace (Negative); Urine Specific Gravity >=1.030 (1.005-1.030); Urine pH 5.5 (5.0-7.0)
[2022-04-02 23:10] LABS: Hematocrit 42.4 % (36.0-45.0); Lymphocytes % 32.4 % (15.3-44.8); MCV 85.4 fL (80-100); MPV 9.2 fL (7.6-11.3); RBC Red Blood Cell Count 4.97 M/uL (3.86-4.86)
[2022-04-02 23:15] LABS: Barbiturates NEGATIVE (NEGATIVE); Benzodiazepines NEGATIVE (NEGATIVE); Cocaine NEGATIVE (NEGATIVE); METHAMPHETAM NEGATIVE (NEGATIVE); Methadone NEGATIVE (NEGATIVE); Opiates NEGATIVE (NEGATIVE); Phencyclidine NEGATIVE (NEGATIVE); THC Cannibis NEGATIVE (NEGATIVE)
[2022-04-02 23:17] LABS: Protime INR 1.2
[2022-04-02 23:28] LABS: ALT/SGPT 19 U/L (12-78); AST/SGOT 19 U/L (15-37); Alkaline Phosphatase 85 U/L (45-117); BUN Blood Urea Nitrogen 11 mg/dL (7-18); Bicarbonate 29 mmol/L (21-32); Bilirubin Total 0.4 mg/dL (0.2-1.0); Glomerular Filtration Rate 119 ml/min (=/>90); Glucose Level 92 mg/dL (74-106); Potassium 3.9 mmol/L (3.5-5.1); Protein, Total 7.8 g/dL (6.4-8.2); Sodium Level 140 mmol/L (136-145)
[2022-04-02 23:29] LABS: Bilirubin Direct < 0.1 mg/dL (0-0.2)
--- NOTE | 2022-04-03 00:36 | EDPHYS ---
Physician Documentation [facility] Name: Vanda Pompa Age: 21 yrs Sex: Female : 2000 Arrival Date: 04/02/2022 Time: 21:28 Bed 23 Private MD: ED Physician Bethel Gloria HPI: 04/03 22:35 This 21 yrs old Female presents to ER via [employer] with complaints of Anxiety. kdr 22:35 Patient seen here on a regular basis for psychiatric issues. Sometimes she claims to be kdr suicidal or least have suicidal thoughts. Often these no more than thoughts. The patient does not have a specific history of suicidal actions. This time she states she wants to get her medications adjustment is not able to get into see [facility] in a timely fashion according to her. Onset: The symptoms/episode began/occurred at an unknown time. Severity of symptoms: At their worst the symptoms were very mild in the emergency department the symptoms are unchanged. The patient has not experienced similar symptoms in the past. The patient has not recently seen a physician. 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 - Social history:: Smoking status: Patient denies any tobacco usage or history of. Patient/guardian denies using alcohol. ROS: 04/03 22:35 Constitutional: Negative for fever, chills, and weight loss, Eyes: Negative for injury, kdr pain, redness, and discharge, Neck: Negative for injury, pain, and swelling, Cardiovascular: Negative for chest pain, palpitations, and edema, Respiratory: Negative for shortness of breath, cough, wheezing, and pleuritic chest pain, Back: Negative for injury and pain, : Negative for injury, bleeding, discharge, and swelling, MS/Extremity: Negative for injury and deformity, Skin: Negative for injury, rash, and discoloration, Neuro: Negative for headache, weakness, numbness, tingling, and seizure activity. Psych: Negative for depression, anxiety, suicide ideation, homicidal ideation, and hallucinations, Allergy/Immunology: Negative for hives, rash, and allergies, Endocrine: Negative for neck swelling, polydipsia, polyuria, polyphagia, and marked weight changes, Hematologic/Lymphatic: Negative for swollen nodes, abnormal bleeding, and unusual bruising. Abdomen/GI: Positive for Psych: Positive for anxiety, depression, Negative for suicide gesture, suicidal ideation. Exam: 22:35 Constitutional: This is a well developed, well nourished patient who is awake, alert, kdr and in no acute distress. Head/Face: Normocephalic, atraumatic. Eyes: Pupils equal round and reactive to light, extra-ocular motions intact. Lids and lashes normal. Conjunctiva and sclera are non-icteric and not injected. Cornea within normal limits. Periorbital areas with no swelling, redness, or edema. Neck: Trachea midline, no thyromegaly or masses palpated, and no cervical lymphadenopathy. Supple, full range of motion without nuchal rigidity, or vertebral point tenderness. No Meningismus. Chest/axilla: Normal chest wall appearance and motion. Nontender with no deformity. No lesions are appreciated. Cardiovascular: Regular rate and rhythm with a normal S1 and S2. No gallops, murmurs, or rubs. Normal PMI, no JVD. No pulse deficits. Respiratory: Lungs have equal breath sounds bilaterally, clear to auscultation and percussion. No rales, rhonchi or wheezes noted. No increased work of breathing, no retractions or nasal flaring. Abdomen/GI: Soft, non-tender, with normal bowel sounds. No distension or tympany. No guarding or rebound. No evidence of tenderness throughout. Back: No spinal tenderness. No costovertebral tenderness. Full range of motion. Skin: Warm, dry with normal turgor. Normal color with no rashes, no lesions, and no evidence of cellulitis. MS/ Extremity: Pulses equal, no cyanosis. Neurovascular intact. Full, normal range of motion. Neuro: Awake and alert, GCS 15, oriented to person, place, time, and situation. Cranial nerves II-XII grossly intact. Motor strength 5/5 in all extremities. Sensory grossly intact. Cerebellar exam normal. Normal gait. Psych: Awake, alert, with orientation to person, place and time. Behavior, mood, and affect are within normal limits. Vital Signs: 04/02 22:33 Weight 52.16 kg; Height 5 ft. 3 in. (160.02 cm); Pain 0/10; ld1 22:35 BP 144 / 77; Pulse 80; Resp 18; Temp 97.3(O); Pulse Ox 100% on R/A; ld1 23:00 BP 105 / 64; Pulse 64; Resp 17; Pulse Ox 99% ; vc1 04/03 00:00 BP 97 / 71; Pulse 67; Resp 17; Pulse Ox 99% ; vc1 01:00 BP 107 / 66; Pulse 80; Pulse Ox 99% ; vc1 04/02 22:33 Body Mass Index 20.37 (52.16 kg, 160.02 cm) ld1 MDM: 00:35 Patient medically screened. kdr 22:35 Data reviewed: vital signs, nurses notes, lab test result(s). Counseling: I had a kdr detailed discussion with the patient and/or guardian regarding: the historical points, exam findings, and any diagnostic results supporting the discharge/admit diagnosis, lab results, the need for outpatient follow up. 22:37 ED course: Patient was stable in the ED and did not require any intervention. She was kdr not actively or even remotely suicidal. I know the patient well and she does not appear to be any more unstable than on past visits. 04/02 22:12 Order name: Acetaminophen kdr 04/02 22:12 Order name: Basic Metabolic Panel kdr 04/02 22:12 Order name: CBC with Diff kdr 04/02 22:12 Order name: ETOH Level kdr 04/02 22:12 Order name: Hepatic Function kdr 04/02 22:12 Order name: PT-INR kdr 04/02 22:12 Order name: Ptt, Activated kdr 04/02 22:12 Order name: Salicylate kdr 04/02 22:12 Order name: Urine Drug Screen kdr 04/02 23:02 Order name: Urine Dipstick-Ancillary; Complete Time: 00:34 EDMS 04/02 23:15 Order name: CBC with Automated Diff; Complete Time: 00:34 EDMS 04/02 23:15 Order name: Urine Drug Screen; Complete Time: 00:34 EDMS 04/02 23:17 Order name: Protime (+INR); Complete Time: 00:34 EDMS 04/02 22:12 Order name: IV Saline Lock; Complete Time: 23:05 kdr 04/02 22:12 Order name: Labs collected and sent; Complete Time: 23:05 kdr 04/02 22:12 Order name: Suicide Screening ([place]); Complete Time: 23:15 kdr 04/02 22:12 Order name: Urine Dipstick-Ancillary (obtain specimen); Complete Time: 23:05 kdr 04/02 23:17 Order name: PTT, Activated Partial Thromb; Complete Time: 00:34 EDMS 04/02 23:23 Order name: Salicylates Level; Complete Time: 00:34 EDMS 04/02 23:29 Order name: Basic Metabolic Panel; Complete Time: 00:34 EDMS 04/02 23:29 Order name: Liver (Hepatic) Function; Complete Time: 00:34 EDMS 04/02 23:29 Order name: Acetaminophen Level; Complete Time: 00:34 EDMS 04/02 23:29 Order name: Alcohol Serum/Plasma; Complete Time: 00:34 EDMS Administered Medications: No medications were administered Disposition Summary: 04/03/22 00:35 Discharge Ordered Location: Home kdr Problem: an acute exacerbation kdr Symptoms: have improved kdr Condition: Stable kdr Diagnosis - Adjustment disorder with depressed mood kdr - Adjustment disorder with anxiety kdr - Bipolar disorder, unspecified kdr Followup: kdr - With: Private Physician - When: 2 - 3 days - Reason: If symptoms return, Further diagnostic work-up, Recheck today's complaints, Continuance of care, Re-evaluation by your physician Discharge Instructions: - Discharge Summary Sheet kdr - Bipolar 1 Disorder kdr - Managing Bipolar Disorder kdr - Managing Depression, Teen kdr Forms: - Medication Reconciliation Form kdr - Thank You Letter kdr Signatures: Dispatcher [employer] Bethel Mejia MD MD kdr Sunshine Rivas, RN RN ld1
--- NOTE | 2022-04-03 00:36 | ER ---
Nurse's Notes [facility] Name: Vanda Pompa Age: 21 yrs Sex: Female : 2000 Arrival Date: 04/02/2022 Time: 21:28 Bed 23 Private MD: Diagnosis: Adjustment disorder with depressed mood;Adjustment disorder with anxiety;Bipolar disorder, unspecified Presentation: 04/02 22:33 Chief complaint: Patient states: I want to see [facility] for anxiety and depression - ld1 I need to get cleared so I can go. Denies SI. Coronavirus screen: At this time, the client does not indicate any symptoms associated with coronavirus-19. Ebola Screen: No symptoms or risks identified at this time. Initial Sepsis Screen: Does the patient meet any 2 criteria? No. Patient's initial sepsis screen is negative. Does the patient have a suspected source of infection? No. Patient's initial sepsis screen is negative. Risk Assessment: Do you want to hurt yourself or someone else? Patient reports no desire to harm self or others. Onset of symptoms was April 02, 2022. 22:33 Method Of Arrival: Law Enforcement: Sharath MALIK ld1 22:33 Acuity: FREDY 2 ld1 Triage Assessment: 22:34 General: Appears in no apparent distress. comfortable, Behavior is calm, cooperative, ld1 appropriate for age. Pain: Denies pain. EENT: No signs and/or symptoms were reported regarding the EENT system. Neuro: Level of Consciousness is awake, alert, obeys commands, Oriented to person, place, time, situation. Cardiovascular: Capillary refill < 3 seconds Patient's skin is warm and dry. Respiratory: Airway is patent Respiratory effort is even, unlabored. GI: Abdomen is flat, non-distended. : No signs and/or symptoms were reported regarding the genitourinary system. Derm: No signs and/or symptoms reported regarding the dermatologic system. Musculoskeletal: No signs and/or symptoms reported regarding the musculoskeletal system. 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 - Social history:: Smoking status: Patient denies any tobacco usage or history of. Patient/guardian denies using alcohol. Screenin:00 Abuse screen: Denies threats or abuse. Nutritional screening: No deficits noted. vc1 Tuberculosis screening: No symptoms or risk factors identified. Fall Risk None identified. Assessment: 23:00 Reassessment: No changes from previously documented assessment. Patient and/or family vc1 updated on plan of care and expected duration. Pain level reassessed. 04/03 00:00 Reassessment: No changes from previously documented assessment. Patient and/or family vc1 updated on plan of care and expected duration. Pain level reassessed. Patient asleep at this time. 01:00 Reassessment: No changes from previously documented assessment. Patient and/or family vc1 updated on plan of care and expected duration. Pain level reassessed. Patient is alert, oriented x 3, equal unlabored respirations, skin warm/dry/pink. Vital Signs: 04/02 22:33 Weight 52.16 kg; Height 5 ft. 3 in. (160.02 cm); Pain 0/10; ld1 22:35 BP 144 / 77; Pulse 80; Resp 18; Temp 97.3(O); Pulse Ox 100% on R/A; ld1 23:00 BP 105 / 64; Pulse 64; Resp 17; Pulse Ox 99% ; vc1 04/03 00:00 BP 97 / 71; Pulse 67; Resp 17; Pulse Ox 99% ; vc1 01:00 BP 107 / 66; Pulse 80; Pulse Ox 99% ; vc1 04/02 22:33 Body Mass Index 20.37 (52.16 kg, 160.02 cm) ld1 ED Course: 04/02 21:28 Patient arrived in ED. bp1 22:11 Bethel Gloria MD is Attending Physician. kdr 22:34 Triage completed. ld1 22:34 Arm band placed on right wrist. ld1 23:00 Patient has correct armband on for positive identification. Bed in low position. Call vc1 light in reach. Side rails up X2. Pulse ox on. NIBP on. 23:05 Rhina Galeano RN is Primary Nurse. vc1 04/03 01:49 No provider procedures requiring assistance completed. IV discontinued, intact, vc1 bleeding controlled, No redness/swelling at site. Pressure dressing applied. Administered Medications: No medications were administered Medication: 01:40 VIS not applicable for this client. vc1 Outcome: 00:35 Discharge ordered by . pema 01:49 Discharged to home via taxi vc1 01:49 Condition: good 01:49 Discharge instructions given to patient. 01:51 Patient left the ED. vc1 Signatures: Bethel Gloria MD MD kdr [place], Brittany bp1 Dibbern, Lauren, RN RN ld1 Rhina Galeano RN RN vc1
[2022-04-03 02:34] VITALS: TEMP 97.3
[2022-04-03 02:35] VITALS: O2SAT 99
[2022-04-03 02:38] VITALS: BP 107/66
== END 2022-04-03 01:51 | disposition home or self-care (01) ==
LOC: ER 21:24
DX: F43.23 Adjustment disorder with mixed anxiety and depressed mood (principal); F31.9 Bipolar disorder, unspecified; J45.909 Unspecified asthma, uncomplicated
CPT/HCPCS: 36415; 80048; 80076; 80307; 80320; 80329; 81003; 85025; 85610; 85730; 99283

== ENCOUNTER 2022-05-28 00:28 | Emergency (ER) | payer OTHER ==
--- OUTSIDE RECORDS SUMMARY | 2022-05-28 00:59 | XMS REPORT | Continuity of Care Document ---
:2000 Author Organization [facility] t Address [address] [place] [address] Care Team Providers Name Role Phone PCP, PATIENT DOES NOT HAVE A Primary Care Physician UnavailBOUCHRA Zambrano Attending Clinician Unavailable JAMES JACOBS Attending Clinician Unavailable Arnaldo BURGER MD, John Attending Clinician HANDY DOMINGUEZ Attending Clinician Unavailable IRASEMA ROBLEDO Attending Clinician Unavailable Irasema Michel Attending Clinician Shivani Castaneda Attending Clinician Nurse, [facility] Attending Clinician Unavailable SHIVANI GUERRA Attending Clinician Unavailable Negrita Moise LVN Attending Clinician Keagan Luo MD Attending Clinician Clinic-Stv, Care Transition Attending Clinician Unavailable NOLVIA HUSAIN Attending Clinician Unavailable Nolvia Husain MD Attending Clinician DEONNA MELENDREZ Attending Clinician Unavailable Deonna Ferrell Attending Clinician Doctor Unassigned, Kirvin Attending Clinician Unavailable Frederick MD, Edythe P Attending Clinician Vaccine, [place] Nitish Attending Clinician Unavailable VIGNESH MACK Attending Clinician Unavailable Kitty CONTE Attending Clinician Unavailable Kitty Crews Attending Clinician ASH RAMIREZ Attending Clinician Unavailable Ash Ramirez MD Attending Clinician Maggie Brooks MD Attending Clinician Akiko Voss MD Attending Clinician AKIKO VOSS Attending Clinician Unavailable Vania Rivera Attending Clinician VANIA FORD Attending Clinician Unavailable LUCINDA WILLS Attending Clinician Unavailable Lucinda Wills MD Attending Clinician SHIVANI VAUGHN Attending Clinician Unavailable SHIVANI VAUGHN Attending Clinician Unavailable Pat Patel MD Attending Clinician Pcp-Lab Attending Clinician Unavailable HONORIO GALARZA Attending Clinician Unavailable Pob, [facility] Main Attending Clinician Unavailable Ryan Payton MD Attending Clinician RYAN PAYTON Attending Clinician Unavailable Jerry Montana Attending Clinician Nurse, Pcp Immunization Attending Clinician Unavailable Gideon Montez DO Attending Clinician GIDEON MONTEZ Attending Clinician Unavailable Bethel Isaacs MD Attending Clinician BETHEL ISAACS Attending Clinician Unavailable Health, Tg Hormone Attending Clinician Unavailable James Jacobs MD Attending Clinician Britt Villalpando Attending Clinician Unavailable Burke Beckett MD Attending Clinician BURKE BECKETT Attending Clinician Unavailable Paolo Rivera MD Attending Clinician Tim Holguin MD Attending Clinician TIM HOLGUIN Attending Clinician Unavailable Immunization, [facility] [employer] Attending Clin ician Unavailable CHELSY ROMO Attending Clinician Unavailable Gio Martinez MD Attending Clinician GIO MARTINEZ Attending Clinician Unavailable DR ALAINA PARRY Attending Clinician Unavailable Nilton Montes MD Attending Clinician NILTON MONTES Attending Clinician Unavailable NILTON MONTES Attending Clinician Unavailable DENA RIVERA Attending Clinician Unavailable TRUNG MCCRAY Attending Clinician Unavailable Unknown, Attending Attending Clinician Unavailable Ruchi Garcia Attending Clinician UNKNOWN, ATTENDING Attending Clinician Unavailable NurseHan Faculty Attending Clinician Unavailable IRASEMA ROBLEDO Admitting Clinician Unavailable Person Keagan ROBERTS Admitting Clinician KEAGAN LUO Admitting Clinician Unavailable DR ALAINA PARRY Admitting Clinician Unavailable Payers Payer Name Policy Type Policy Number Effective Date Expiration Date [place] [facility] MEDICA[facility] [place] [id number] 2021 00:00:00 [facility] [id number] 2016 [facility] MEDICAID 00:00:00 Problems Condition Condition Condition Status Onset Resolution Last Treating Co mments Source Name Details Category Date Date Treatment Clinician Date Trauma Trauma Disease Active 2021-07 Univers 0-03 ity of 00:00: [place] 00 Medical Branch Menorrhagi Menorrhagi Disease Active U nivers a with a with 4-29 ity of regular regular 00:00: [place] cycle cycle 00 Medical Branch 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-01 it[place] of depressive [place] disorder disorder 00 Medica [place] Branch Bipolar Bipolar Disease Active Overview: Univ ers disorder, disorder, 5-19 Formattin i ty of in partial in partial 00:00: g of this [place] remission, remission, 00 note Me dical most [...] anxiety [place] disorder[place] disorder[place] 00 [facility] Branch Attention Attention Disease Active 2009-1 Overview: Univers deficit deficit 2-22 Formattin ity o f hyperactiv hyperactiv 00:00: g of this [place] ity ity 00 note Medical disorder disorder might be Bran ch (ADHD) (ADHD) different from the original. 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 Allergies, Adverse Reactions, Alerts Allergy Allergy [...] Drug Active Univers ALLERGIE Class ity of [facility] [place] [facility] Family History Family Member Diagnosis Comments Start Date Stop Date Source Natural brother Psychiatry [facility] Natural father Alcohol abuse Univers [facility] [place] [facility] Natural father Substance abuse Unive rsity of [facility] Natural mother Psychiatry [facility] Social History Social Habit Start Date Stop Date Quantity Comments Source History [facility] Alcohol Comment [place] Med ical Branch Exposure to 2022-05-09 2022-05-19 Not sure [facility] SARS-CoV-2 00:00:00 10:21:00 [facility] (event) Branch Alcohol intake 2022-05-19 2022-05-19 Lifetime University of 00:00:00 00:00:00 non-drinker [facility] (finding) Branch Tobacco use and 2022-01-17 2022-01-17 Smokeless tobacco Un iversity of exposure 00:00:00 00:00:00 non-user [place] [facility] History [facility] 2020-04-20 2020-04-20 1 University o f Alcohol Frequency 00:00:00 00:00:00 [place] M edical Branch History [facility] 2020-04-20 2020-04-20 99 University o f Alcohol Std 00:00:00 00:00:00 [place] Medical Drinks Branch History [facility] 2020-04-20 2020-04-20 1 University o f Alcohol Binge 00:00:00 00:00:00 [place] Medic al Branch Sex Assigned At [birth year] Universit y of 00:00:00 00:00:00 [facility] Smoking Status Start Date Stop Date Source Never smoked tobacco [facility] Medications Ordered Filled Start Stop Current Ordering Indication Dosage Frequency Signature Comments Components Source Medication Medication Date Date Medication? Clinician (SIG) Name Name ARIPiprazol 2021-07- No [id number] 300mg Univers e (ABILIFY 07-19 ity of MAINTENA) 17:00: 16:17 [place] injection 00 :00 Medical SSRR 300 mg Branch atomoxetine 2021-07 Yes [id number] 40mg Take 1 Univers 40 mg 0-31 capsule by ity of capsule 00:00: mouth in [place] 00 the Medical morning. [place] lamoTRIgine 2021-07 Yes [id number] 25mg Take 1 Univers 25 mg 0-31 tablet by ity of tablet 00:00: mouth in [place] the Medical morning. Branch atomoxetine 2021-07 Yes [id number] 40mg Take 1 Univers 40 mg 0-31 capsule by ity of capsule 00:00: mouth in [place] the Medical morning. [place] lamoTRIgine 2021-07 Yes [id number] 25mg Take 1 Univers 25 mg 0-31 tablet by ity of tablet 00:00: mouth in [place] 00 the Medical morning. [place] atomoxetine 2021-07 Yes [id number] 40mg Take 1 Univers 40 mg 0-31 capsule by ity of capsule 00:00: mouth in [place] the Medical morning. Branch lamoTRIgine 2021-07 Yes [id number] 25mg Take 1 Univers 25 mg 0-31 tablet by ity of tablet 00:00: mouth in [place] the Medical morning. Branch atomoxetine 2021-07 Yes [id number] 40mg Take 1 Univers 40 mg 0-31 capsule by ity of capsule 00:00: mouth in [place] the Medical morning. [place] lamoTRIgine 2021-07 Yes [id number] 25mg Take 1 Univers 25 mg 0-31 tablet by ity of tablet 00:00: mouth in [place] 00 the Medical morning. Branch atomoxetine 2021-07 Yes [id number] 40mg Take 1 Univers 40 mg 0-31 capsule by ity of capsule 00:00: mouth in [place] 00 the Medical morning. [place] lamoTRIgine 2021-07 Yes [id number] 25mg Take 1 Univers 25 mg 0-31 tablet by ity of tablet 00:00: mouth in [place] 00 the Medical morning. Branch atomoxetine 2021-07 Yes [id number] 40mg Take 1 Univers 40 mg 0-31 capsule by ity of capsule 00:00: mouth in [place] 00 the Medical morning. Branch lamoTRIgine 2021-07 Yes [id number] 25mg Take 1 Univers 25 mg 0-31 tablet by ity of tablet 00:00: mouth in [place] 00 the Medical morning. Branch atomoxetine 2021-07 Yes [id number] 40mg Take 1 Univers 40 mg 0-31 capsule by ity of capsule 00:00: mouth in [place] 00 the Medical morning. Branch lamoTRIgine 2021-07 Yes [id number] 25mg Take 1 Univers 25 mg 0-31 tablet by ity of tablet 00:00: mouth in [place] 00 the Medical morning. Branch naltrexone 2021-07- Yes [id number] 50mg Take 1 Univers 50 mg 0-31 01-30 tablet by ity of tablet 00:00: 05:59 mouth in [place] 00 :00 the Medical morning Branch for 90 days. naltrexone 2021-07- Yes [id number] 50mg Take 1 Univers 50 mg 0-31 01-30 tablet by ity of tablet 00:00: 05:59 mouth in [place] 00 :00 the Medical morning Branch for 90 days. naltrexone 2021-07- Yes [id number] 50mg Take 1 Univers 50 mg 0-31 01-30 tablet by ity of tablet 00:00: 05:59 mouth in [place] 00 :00 the Medical morning Branch for 90 days. naltrexone 2021-07- Yes [id number] 50mg Take 1 Univers 50 mg 0-31 01-30 tablet by ity of tablet 00:00: 05:59 mouth in [place] 00 :00 the Medical morning Branch for 90 days. naltrexone 2021-07- Yes [id number] 50mg Take 1 Univers 50 mg 0-31 01-30 tablet by ity of tablet 00:00: 05:59 mouth in [place] 00 :00 the Medical morning Branch for 90 days. naltrexone 2021-07- Yes [id number] 50mg Take 1 Univers 50 mg 0-31 01-30 tablet by ity of tablet 00:00: 05:59 mouth in [place] 00 :00 the Medical morning Branch for 90 days. naltrexone 2021-07- Yes [id number] 50mg Take 1 Univers 50 mg 0-31 01-30 tablet by ity of tablet 00:00: 05:59 mouth in [place] 00 :00 the Medical morning Branch for 90 days. ARIPiprazol 2021-07- No [id number] 300mg Univers e (ABILIFY 0-20 10-20 ity of MAINTENA) 15:15: 15:46 [place] injection 00 :00 Medical SSRR 300 mg Branch ARIPiprazol 2021-07- No [id number] 300mg Univers e (ABILIFY 0-20 10-20 ity of MAINTENA) 15:15: 15:46 [place] injection 00 :00 Medical SSRR 300 mg Branch ARIPiprazol 2021-07- No [id number] 300mg Univers e (ABILIFY 0-20 10-20 ity of MAINTENA) 15:15: 15:46 [place] injection 00 :00 Medical SSRR 300 mg Branch ARIPiprazol 2021-07- No [id number] 300mg Univers e (ABILIFY 0-20 10-20 ity of MAINTENA) 15:15: 15:46 [place] injection 00 :00 Medical SSRR 300 mg Branch ARIPiprazol 2021-07- No [id number] 300mg Univers e (ABILIFY 0-20 10-20 ity of MAINTENA) 15:15: 15:46 [place] injection 00 :00 Medical SSRR 300 mg Branch ARIPiprazol 2021-07- No [id number] 300mg Univers e (ABILIFY 0-20 10-20 ity of MAINTENA) 15:15: 15:46 [place] injection 00 :00 Medical SSRR 300 mg Branch ARIPiprazol 2021-07- Yes [id number] 300mg Univers e (ABILIFY 0-19 10-20 ity of MAINTENA) 15:45: 03:44 [place] injection 00 :00 Medical SSRR 300 mg Branch lamoTRIgine 2021-07 Yes 25mg Take 1 Univ ers 25 mg 0-18 tablet by ity of tablet 00:00: mouth in [place] 00 the Medical morning. Branch lamoTRIgine 2021-07 Yes 25mg Take 1 Univ ers 25 mg 0-18 tablet by ity of tablet 00:00: mouth in [place] 00 the Medical morning. Branch lamoTRIgine 2022-1 Yes 25mg Take 1 Univ ers 25 mg 0-18 tablet by ity of tablet 00:00: mouth in [place] 00 the Medical morning. Branch lamoTRIgine 2022-1 Yes 25mg Take 1 Univ ers 25 mg 0-18 tablet by ity of tablet 00:00: mouth in [place] 00 the Medical morning. Branch lamoTRIgine 2022-1 Yes 25mg Take 1 Univ ers 25 mg 0-18 tablet by ity of tablet 00:00: mouth in [place] 00 the Medical morning. Branch lamoTRIgine 2022-1 Yes 25mg Take 1 Univ ers 25 mg 0-18 tablet by ity of tablet 00:00: mouth in [place] 00 the Medical morning. Branch lamoTRIgine 2022-1 Yes 25mg Take 1 Univ ers 25 mg 0-18 tablet by ity of tablet 00:00: mouth in [place] 00 the Medical morning. Branch lamoTRIgine 2022-1 Yes 25mg Take 1 Univ ers 25 mg 0-18 tablet by ity of tablet 00:00: mouth in [place] 00 the Medical morning. Branch lamoTRIgine 2022-1 Yes 25mg Take 1 Univ ers 25 mg 0-18 tablet by ity of tablet 00:00: mouth in [place] 00 the Medical morning. Branch lamoTRIgine 2022-1 Yes 25mg Take 1 Univ ers 25 mg 0-18 tablet by ity of tablet 00:00: mouth in [place] 00 the Medical morning. Branch lamoTRIgine 2022-1 Yes 25mg Take 1 Univ ers 25 mg 0-18 tablet by ity of tablet 00:00: mouth in [place] 00 the Medical morning. Branch lamoTRIgine 2022-1 Yes 25mg Take 1 Univ ers 25 mg 0-18 tablet by ity of tablet 00:00: mouth in [place] 00 the Medical morning. Branch lamoTRIgine 2022-1 2022- No 25mg Take 1 Uni vers 25 mg 0-18 10-31 tablet by ity of tablet 00:00: 00:00 mouth in [place] 00 :00 the Medical morning. Branch lamoTRIgine 2022-1 2022- No 25mg Take 1 Uni vers 25 mg 0-18 10-31 tablet by ity of tablet 00:00: 00:00 mouth in [place] 00 :00 the Medical morning. Branch lamoTRIgine 2021-07- No 25mg Take 1 Uni vers 25 mg 0-18 10-31 tablet by ity of tablet 00:00: 00:00 mouth in [place] 00 :00 the Medical morning. Branch lamoTRIgine 2021-07- No 25mg Take 1 Uni vers 25 mg 0-18 10-31 tablet by ity of tablet 00:00: 00:00 mouth in [place] 00 :00 the Medical morning. Branch atomoxetine 2021-07 Yes [id number] 40mg Take 1 Univers 40 mg 0-13 capsule by ity of capsule 00:00: mouth in [place] 00 the Medical morning. Branch atomoxetine 2021-07 Yes [id number] 40mg Take 1 Univers 40 mg 0-13 capsule by ity of capsule 00:00: mouth in [place] 00 the Medical morning. Branch atomoxetine 2021-07 Yes [id number] 40mg Take 1 Univers 40 mg 0-13 capsule by ity of capsule 00:00: mouth in [place] 00 the Medical morning. Branch atomoxetine 2021-07 Yes [id number] 40mg Take 1 Univers 40 mg 0-13 capsule by ity of capsule 00:00: mouth in [place] 00 the Medical morning. Branch atomoxetine 2021-07 Yes [id number] 40mg Take 1 Univers 40 mg 0-13 capsule by ity of capsule 00:00: mouth in [place] 00 the Medical morning. Branch atomoxetine 2021-07 Yes [id number] 40mg Take 1 Univers 40 mg 0-13 capsule by ity of capsule 00:00: mouth in [place] 00 the Medical morning. Branch atomoxetine 2021-07 Yes [id number] 40mg Take 1 Univers 40 mg 0-13 capsule by ity of capsule 00:00: mouth in [place] 00 the Medical morning. Branch atomoxetine 2021-07 Yes [id number] 40mg Take 1 Univers 40 mg 0-13 capsule by ity of capsule 00:00: mouth in [place] 00 the Medical morning. Branch atomoxetine 2021- Yes [id number] 40mg Take 1 Univers 40 mg 0-13 capsule by ity of capsule 00:00: mouth in [place] 00 the Medical morning. Branch atomoxetine 2021- Yes [id number] 40mg Take 1 Univers 40 mg 0-13 capsule by ity of capsule 00:00: mouth in [place] 00 the Medical morning. Branch atomoxetine 2021-07 Yes [id number] 40mg Take 1 Univers 40 mg 0-13 capsule by ity of capsule 00:00: mouth in [place] 00 the Medical morning. Branch atomoxetine 2021-07 Yes [id number] 40mg Take 1 Univers 40 mg 0-13 capsule by ity of capsule 00:00: mouth in [place] 00 the Medical morning. Branch atomoxetine 2021-07 Yes [id number] 40mg Take 1 Univers 40 mg 0-13 capsule by ity of capsule 00:00: mouth in [place] 00 the Medical morning. Branch atomoxetine 2021-07 Yes [id number] 40mg Take 1 Univers 40 mg 0-13 capsule by ity of capsule 00:00: mouth in [place] 00 the Medical morning. Branch atomoxetine 2021-07 Yes [id number] 40mg Take 1 Univers 40 mg 0-13 capsule by ity of capsule 00:00: mouth in [place] 00 the Medical morning. Branch atomoxetine 2021-07 Yes [id number] 40mg Take 1 Univers 40 mg 0-13 capsule by ity of capsule 00:00: mouth in [place] 00 the Medical morning. Branch atomoxetine 2021-07 Yes [id number] 40mg Take 1 Univers 40 mg 0-13 capsule by ity of capsule 00:00: mouth in [place] 00 the Medical morning. Branch atomoxetine 2021-07 Yes [id number] 40mg Take 1 Univers 40 mg 0-13 capsule by ity of capsule 00:00: mouth in [place] 00 the Medical morning. Branch atomoxetine 2021-07- No [id number] 40mg Take 1 Univers 40 mg 0-13 10-31 capsule by ity of capsule 00:00: 00:00 mouth in [place] 00 :00 the Medical morning. Branch atomoxetine 2021-07- No [id number] 40mg Take 1 Univers 40 mg 0-13 10-31 capsule by ity of capsule 00:00: 00:00 mouth in [place] 00 :00 the Medical morning. Branch atomoxetine 2021-07- No [id number] 40mg Take 1 Univers 40 mg 0-13 10-31 capsule by ity of capsule 00:00: 00:00 mouth in [place] 00 :00 the Medical morning. Branch atomoxetine 2021-07- No [id number] 40mg Take 1 Univers 40 mg 0-13 10-31 capsule by ity of capsule 00:00: 00:00 mouth in [place] 00 :00 the Medical morning. [place] NaCl 0.9% 2021-07- No 1000mL at 999 Uni vers (NS) bolus 0-09 10-10 mL/hr, ity of infusion 23:45: 03:09 1,000 mL, [place] as 1,000 mL 00 :00 IV Medical Infusion, Branch ONCE, 1 dose, On 04/10/22 at 1845, ARLEN atomoxetine 2021- Yes 40mg Take 1 Univ ers 40 mg 0-07 capsule by ity of capsule 00:00: mouth in [place] 00 the Medical morning. Branch lamoTRIgine 2021- Yes 25mg Take 1 Univ ers 25 mg 0-07 tablet by ity of tablet 00:00: mouth in [place] 00 the Medical morning. Branch atomoxetine 2021-1 Yes 40mg Take 1 Univ ers 40 mg 0-07 capsule by ity of capsule 00:00: mouth in [place] 00 the Medical morning. Branch lamoTRIgine 2021- Yes 25mg Take 1 Univ ers 25 mg 0-07 tablet by ity of tablet 00:00: mouth in [place] 00 the Medical morning. Branch atomoxetine 2021-1 Yes 40mg Take 1 Univ ers 40 mg 0-07 capsule by ity of capsule 00:00: mouth in [place] 00 the Medical morning. Branch lamoTRIgine 2021-1 Yes 25mg Take 1 Univ ers 25 mg 0-07 tablet by ity of tablet 00:00: mouth in [place] 00 the Medical morning. Branch atomoxetine 2021- Yes 40mg Take 1 Univ ers 40 mg 0-07 capsule by ity of capsule 00:00: mouth in [place] 00 the Medical morning. Branch lamoTRIgine 2021-1 Yes 25mg Take 1 Univ ers 25 mg 0-07 tablet by ity of tablet 00:00: mouth in [place] 00 the Medical morning. Branch lamoTRIgine 2021-1 Yes 25mg Take 1 Univ ers 25 mg 0-07 tablet by ity of tablet 00:00: mouth in [place] 00 the Medical morning. Branch lamoTRIgine 2021-1 Yes 25mg Take 1 Univ ers 25 mg 0-07 tablet by ity of tablet 00:00: mouth in [place] 00 the Medical morning. Branch lamoTRIgine 2021-1 Yes 25mg Take 1 Univ ers 25 mg 0-07 tablet by ity of tablet 00:00: mouth in [place] 00 the Medical morning. Branch lamoTRIgine 2021-07 Yes 25mg Take 1 Univ ers 25 mg 0-07 tablet by ity of tablet 00:00: mouth in [place] 00 the Medical morning. Branch lamoTRIgine 2021-07 Yes 25mg Take 1 Univ ers 25 mg 0-07 tablet by ity of tablet 00:00: mouth in [place] 00 the Medical morning. Branch lamoTRIgine 2021-07 Yes 25mg Take 1 Univ ers 25 mg 0-07 tablet by ity of tablet 00:00: mouth in [place] 00 the Medical morning. Branch polyethylen 2021-07- Yes [id number] 17g Take 1 Univers e glycol 0-07 11-07 Packet by ity o f 3350 17 00:00: 05:59 mouth in [place] gram powder 00 :00 the [facility] morning Branch for 30 days. polyethylen 2021-07- Yes [id number] 17g Take 1 Univers e glycol 0-07 11-07 Packet by ity o f 3350 17 00:00: 05:59 mouth in [place] gram powder 00 :00 the [facility] morning Branch for 30 days. polyethylen 2021-07- Yes [id number] 17g Take 1 Univers e glycol 0-07 11-07 Packet by ity o f 3350 17 00:00: 05:59 mouth in [place] gram powder 00 :00 the [facility] morning Branch for 30 days. polyethylen 2021-07- Yes [id number] 17g Take 1 Univers e glycol 0-07 11-07 Packet by ity o f 3350 17 00:00: 05:59 mouth in [place] gram powder 00 :00 the [facility] morning Branch for 30 days. polyethylen 2021-07- Yes [id number] 17g Take 1 Univers e glycol 0-07 11-07 Packet by ity o f 3350 17 00:00: 05:59 mouth in [place] gram powder 00 :00 the [facility] morning Branch for 30 days. polyethylen 2021-07- Yes [id number] 17g Take 1 Univers e glycol 0-07 11-07 Packet by ity o f 3350 17 00:00: 05:59 mouth in [place] gram powder 00 :00 the Medical morning Branch for 30 days. polyethylen 2021-07- Yes [id number] 17g Take 1 Univers e glycol 0-07 11-07 Packet by ity o f 3350 17 00:00: 05:59 mouth in [place] gram powder 00 :00 the Medical morning Branch for 30 days. polyethylen 2021-07- Yes [id number] 17g Take 1 Univers e glycol 0-07 11-07 Packet by ity o f 3350 17 00:00: 05:59 mouth in [place] gram powder 00 :00 the Medical morning Branch for 30 days. polyethylen 2021-07- Yes [id number] 17g Take 1 Univers e glycol 0-07 11-07 Packet by ity o f 3350 17 00:00: 05:59 mouth in [place] gram powder 00 :00 the Medical morning Branch for 30 days. polyethylen 2021-07- Yes [id number] 17g Take 1 Univers e glycol 0-07 11-07 Packet by ity o f 3350 17 00:00: 05:59 mouth in [place] gram powder 00 :00 the Medical morning Branch for 30 days. polyethylen 2021-07- Yes [id number] 17g Take 1 Univers e glycol 0-07 11-07 Packet by ity o f 3350 17 00:00: 05:59 mouth in [place] gram powder 00 :00 the Medical morning Branch for 30 days. polyethylen 2021-07- Yes [id number] 17g Take 1 Univers e glycol 0-07 11-07 Packet by ity o f 3350 17 00:00: 05:59 mouth in [place] gram powder 00 :00 the Medical morning Branch for 30 days. polyethylen 2021-07- Yes [id number] 17g Take 1 Univers e glycol 0-07 11-07 Packet by ity o f 3350 17 00:00: 05:59 mouth in [place] gram powder 00 :00 the Medical morning Branch for 30 days. polyethylen 2021-07- Yes [id number] 17g Take 1 Univers e glycol 0-07 11-07 Packet by ity o f 3350 17 00:00: 05:59 mouth in [place] gram powder 00 :00 the Medical morning Branch for 30 days. polyethylen 2021-07- Yes [id number] 17g Take 1 Univers e glycol 0-07 11-07 Packet by ity o f 3350 17 00:00: 05:59 mouth in [place] gram powder 00 :00 the Medical morning Branch for 30 days. polyethylen 2021-07- Yes [id number] 17g Take 1 Univers e glycol 0-07 11-07 Packet by ity o f 3350 17 00:00: 05:59 mouth in [place] gram powder 00 :00 the Medical morning Branch for 30 days. polyethylen 2021-07- Yes [id number] 17g Take 1 Univers e glycol 0-07 11-07 Packet by ity o f 3350 17 00:00: 05:59 mouth in [place] gram powder 00 :00 the Medical morning Branch for 30 days. polyethylen 2021-07- Yes [id number] 17g Take 1 Univers e glycol 0-07 11-07 Packet by ity o f 3350 17 00:00: 05:59 mouth in [place] gram powder 00 :00 the Medical morning Branch for 30 days. polyethylen 2021-07- Yes [id number] 17g Take 1 Univers e glycol 0-07 11-07 Packet by ity o f 3350 17 00:00: 05:59 mouth in [place] gram powder 00 :00 the Medical morning Branch for 30 days. polyethylen 2021-07- Yes [id number] 17g Take 1 Univers e glycol 0-07 11-07 Packet by ity o f 3350 17 00:00: 05:59 mouth in [place] gram powder 00 :00 the Medical morning Branch for 30 days. polyethylen 2021-07- Yes [id number] 17g Take 1 Univers e glycol 0-07 11-07 Packet by ity o f 3350 17 00:00: 05:59 mouth in [place] gram powder 00 :00 the Medical morning Branch for 30 days. polyethylen 2021-07- Yes [id number] 17g Take 1 Univers e glycol 0-07 11-07 Packet by ity o f 3350 17 00:00: 05:59 mouth in [place] gram powder 00 :00 the Medical morning Branch for 30 days. polyethylen 2021-07- Yes [id number] 17g Take 1 Univers e glycol 0-07 11-07 Packet by ity o f 3350 17 00:00: 05:59 mouth in [place] gram powder 00 :00 the Medical morning Branch for 30 days. polyethylen 2021-07- Yes [id number] 17g Take 1 Univers e glycol 0-07 11-07 Packet by ity o f 3350 17 00:00: 05:59 mouth in [place] gram powder 00 :00 the Medical morning Branch for 30 days. polyethylen 2021-07- Yes [id number] 17g Take 1 Univers e glycol 0-07 11-07 Packet by ity o f 3350 17 00:00: 05:59 mouth in [place] gram powder 00 :00 the Medical morning Branch for 30 days. polyethylen 2021-07- No [id number] 17g Take 1 Univers e glycol 0-07 11-07 Packet by ity o f 3350 17 00:00: 05:59 mouth in [place] gram powder 00 :00 the Medical morning Branch for 30 days. lamoTRIgine 2021-2021- No 25mg Take 1 Uni vers 25 mg 0-07 10-18 tablet by ity of tablet 00:00: 00:00 mouth in [place] 00 :00 the Medical morning. Branch lamoTRIgine 2021-07- No 25mg Take 1 Uni vers 25 mg 0-07 10-18 tablet by ity of tablet 00:00: 00:00 mouth in [place] 00 :00 the Medical morning. Branch lamoTRIgine 2021-2021- No 25mg Take 1 [facility] 25 mg 0-07 10-18 tablet by [facility] tablet 00:00: 00:00 mouth in [place] 00 :00 the Medical morning. Branch lamoTRIgine 2021-2021- No 25mg Take 1 [facility] vers 25 mg 0-07 10-18 tablet by [facility] tablet 00:00: 00:00 mouth in [place] 00 :00 the Medical morning. Branch lamoTRIgine 2021-2021- No 25mg Take 1 [facility] vers 25 mg 0-07 10-18 tablet by [facility] tablet 00:00: 00:00 mouth in [place] 00 :00 the Medical morning. Branch lamoTRIgine 2021-2- No 25mg Take 1 [facility] vers 25 mg 0-07 10-18 tablet by [facility] tablet 00:00: 00:00 mouth in [place] 00 :00 the Medical morning. Branch lamoTRIgine 2021-2- No 25mg Take 1 [facility] vers 25 mg 0-07 10-18 tablet by [facility] tablet 00:00: 00:00 mouth in [place] 00 :00 the Medical morning. Branch lamoTRIgine 2021-07- No 25mg Take 1 [facility] vers 25 mg 0-07 10-18 tablet by [facility] tablet 00:00: 00:00 mouth in [place] 00 :00 the Medical morning. Branch lamoTRIgine 2021-07- No 25mg Take 1 [facility] vers 25 mg 0-07 10-18 tablet by [facility] tablet 00:00: 00:00 mouth in [place] 00 :00 the Medical morning. Branch lamoTRIgine 2021-07- No 25mg Take 1 [facility] vers 25 mg 0-07 10-18 tablet by [facility] tablet 00:00: 00:00 mouth in [place] 00 :00 the Medical morning. Branch lamoTRIgine 2021-07- No 25mg Take 1 [facility] vers 25 mg 0-07 10-18 tablet by [facility] tablet 00:00: 00:00 mouth in [place] 00 :00 the Medical morning. Branch tamsulosin 2021-07- Yes [id number] .4mg Take 1 [facility] 0.4 mg 24 0-07 10-15 capsule by [facility] hr capsule 00:00: 04:59 mouth in [place] 00 :00 the Medical morning Branch for 7 days. tamsulosin 2021-07- Yes [id number] .4mg Take 1 [facility] 0.4 mg 24 0-07 10-15 capsule by [facility] hr capsule 00:00: 04:59 mouth in [place] 00 :00 the Medical morning Branch for 7 days. tamsulosin 2021-07- Yes [id number] .4mg Take 1 [facility] 0.4 mg 24 0-07 10-15 capsule by [facility] hr capsule 00:00: 04:59 mouth in [place] 00 :00 the Medical morning Branch for 7 days. tamsulosin 2021-07- Yes [id number] .4mg Take 1 [facility] 0.4 mg 24 0-07 10-15 capsule by [facility] hr capsule 00:00: 04:59 mouth in [place] 00 :00 the Medical morning Branch for 7 days. tamsulosin 2021-07- Yes [id number] .4mg Take 1 [facility] 0.4 mg 24 0-07 10-15 capsule by [facility] hr capsule 00:00: 04:59 mouth in [place] 00 :00 the Medical morning Branch for 7 days. tamsulosin 2021-07- No [id number] .4mg Take 1 [facility] 0.4 mg 24 0-07 10-15 capsule by [facility] hr capsule 00:00: 04:59 mouth in [place] 00 :00 the Medical morning Branch for 7 days. tamsulosin 2021-07- No [id number] .4mg Take 1 [facility] 0.4 mg 24 0-07 10-15 capsule by [facility] hr capsule 00:00: 04:59 mouth in [place] 00 :00 the [facility] morning Branch for 7 days. tamsulosin 2021-07- No [id number] .4mg Take 1 [facility] 0.4 mg 24 0-07 10-15 capsule by [facility] of hr capsule 00:00: 04:59 mouth in [place] 00 :00 the [facility] morning Branch for 7 days. tamsulosin 2021-07- No [id number] .4mg Take 1 [facility] 0.4 mg 24 0-07 10-15 capsule by [facility] of hr capsule 00:00: 04:59 mouth in [place] 00 :00 the [facility] morning Branch for 7 days. tamsulosin 2021-07- No [id number] .4mg Take 1 [facility] 0.4 mg 24 0-07 10-15 capsule by [facility] of hr capsule 00:00: 04:59 mouth in [place] 00 :00 the [facility] morning Branch for 7 days. tamsulosin 2021-07- No [id number] .4mg Take 1 [facility] 0.4 mg 24 0-07 10-15 capsule by [facility] of hr capsule 00:00: 04:59 mouth in [place] 00 :00 the Medical morning Branch for 7 days. tamsulosin 2021-07- No [id number] .4mg Take 1 [facility] 0.4 mg 24 0-07 10-15 capsule by [facility] of hr capsule 00:00: 04:59 mouth in [place] 00 :00 the Medical morning Branch for 7 days. tamsulosin 2021-07- No [id number] .4mg Take 1 [facility] 0.4 mg 24 0-07 10-15 capsule by [facility] of hr capsule 00:00: 04:59 mouth in [place] 00 :00 the Medical morning Branch for 7 days. tamsulosin 2021-07- No [id number] .4mg Take 1 [facility] 0.4 mg 24 0-07 10-15 capsule by [facility] of hr capsule 00:00: 04:59 mouth in [place] 00 :00 the Medical morning Branch for 7 days. tamsulosin 2021-07- No [id number] .4mg Take 1 [facility] 0.4 mg 24 0-07 10-15 capsule by [facility] of hr capsule 00:00: 04:59 mouth in [place] 00 :00 the Medical morning Branch for 7 days. tamsulosin 2021-07 No [id number] .4mg Take 1 [facility] 0.4 mg 24 0-07 10-15 capsule by [facility] of hr capsule 00:00: 04:59 mouth in [place] 00 :00 the Medical morning Branch for 7 days. tamsulosin 2021-07- No [id number] .4mg Take 1 [facility] 0.4 mg 24 0-07 10-15 capsule by [facility] of hr capsule 00:00: 04:59 mouth in [place] 00 :00 the [facility] morning Branch for 7 days. tamsulosin 2021-07- No [id number] .4mg Take 1 [facility] 0.4 mg 24 0-07 10-15 capsule by [facility] of hr capsule 00:00: 04:59 mouth in [place] 00 :00 the Medical morning Branch for 7 days. tamsulosin 2021-07- No [id number] .4mg Take 1 [facility] 0.4 mg 24 0-07 10-15 capsule by [facility] of hr capsule 00:00: 04:59 mouth in [place] 00 :00 the Medical morning Branch for 7 days. tamsulosin 2021-07- No [id number] .4mg Take 1 [facility] 0.4 mg 24 0-07 10-15 capsule by [facility] hr capsule 00:00: 04:59 mouth in [place] 00 :00 the Medical morning Branch for 7 days. tamsulosin 2021-07- No [id number] .4mg Take 1 [facility] 0.4 mg 24 0-07 10-15 capsule by [facility] of hr capsule 00:00: 04:59 mouth in [facility] 00 :00 the Medical morning [place] for 7 days. atomoxetine 2021-2021- No 40mg Take 1 [facility] vers 40 mg 0-07 10-13 capsule by [facility] of capsule 00:00: 00:00 mouth in [place] 00 :00 the Medical morning. [place] atomoxetine 2021-2021- No 40mg Take 1 [facility] vers 40 mg 0-07 10-13 capsule by [facility] of capsule 00:00: 00:00 mouth in [place] 00 :00 the Medical morning. [place] atomoxetine 2021-2021- No 40mg Take 1 [facility] vers 40 mg 0-07 10-13 capsule by [facility] of capsule 00:00: 00:00 mouth in [place] 00 :00 the Medical morning. [place] atomoxetine 2021-2021- No 40mg Take 1 [facility] vers 40 mg 0-07 10-13 capsule by [facility] of capsule 00:00: 00:00 mouth in [place] 00 :00 the Medical morning. [place] atomoxetine 2021-2021- No 40mg Take 1 [facility] vers 40 mg 0-07 10-13 capsule by [facility] of capsule 00:00: 00:00 mouth in [place] 00 :00 the Medical morning. [place] atomoxetine 2021-2021- No 40mg Take 1 [facility] vers 40 mg 0-07 10-13 capsule by [facility] of capsule 00:00: 00:00 mouth in [place] 00 :00 the Medical morning. [place] atomoxetine 2021-2021- No 40mg Take 1 [facility] vers 40 mg 0-07 10-13 capsule by [facility] of capsule 00:00: 00:00 mouth in [place] 00 :00 the Medical morning. [place] atomoxetine 2021-2- No 40mg Take 1 [facility] vers 40 mg 0-07 10-13 capsule by [facility] of capsule 00:00: 00:00 mouth in [place] 00 :00 the Medical morning. [place] atomoxetine 2021-2- No 40mg Take 1 [facility] vers 40 mg 0-07 10-13 capsule by [facility] of capsule 00:00: 00:00 mouth in [place] 00 :00 the Medical morning. [place] atomoxetine 2021-2- No 40mg Take 1 [facility] vers 40 mg 0-07 10-13 capsule by [facility] of capsule 00:00: 00:00 mouth in [place] 00 :00 the Medical morning. [place] atomoxetine 2021-07- No 40mg Take 1 [facility] vers 40 mg 0-07 10-13 capsule by [facility] of capsule 00:00: 00:00 mouth in [place] 00 :00 the Medical morning. [place] atomoxetine 2021-07- No 40mg Take 1 [facility] vers 40 mg 0-07 10-13 capsule by [facility] of capsule 00:00: 00:00 mouth in [place] 00 :00 the Medical morning. [place] atomoxetine 2021-07- No 40mg Take 1 [facility] vers 40 mg 0-07 10-13 capsule by [facility] of capsule 00:00: 00:00 mouth in [place] 00 :00 the Medical morning. [place] atomoxetine 2021-07- No 40mg Take 1 [facility] vers 40 mg 0-07 10-13 capsule by [facility] of capsule 00:00: 00:00 mouth in [place] 00 :00 the Medical morning. [place] atomoxetine 2021-07- No 40mg Take 1 [facility] vers 40 mg 0-07 10-13 capsule by [facility] of capsule 00:00: 00:00 mouth in [place] 00 :00 the Medical morning. [place] atomoxetine 2021-07- No 40mg Take 1 [facility] vers 40 mg 0-07 10-13 capsule by [facility] of capsule 00:00: 00:00 mouth in [place] 00 :00 the Medical morning. [place] atomoxetine 2021-07- No 40mg Take 1 [facility] vers 40 mg 0-07 10-13 capsule by [facility] of capsule 00:00: 00:00 mouth in [place] 00 :00 the Medical morning. [place] traZODone 2021-07 Yes 50mg 50 mg, [facility] (DESYREL) 0-06 Oral, QHS, ity of tablet 50 02:00: First dose [place] mg 00 on Mon04/06/22 at [place] 2100, Until Discontinu ed, Routine acetaminoph 2021-07 Yes [id number] 1000mg Take 2 [facility] en 500 mg 0-06 tablets by [facility] of tablet 00:00: mouth [place] 00 every 8 Medical (eight) Branch hours as needed for Pain. traZODone 2021-07 Yes 50mg Take 1 [facility] 50 mg 0-06 tablet by [facility] of tablet 00:00: mouth at [place] 00 bedtime. Medical Branch methocarbam 2021-07 Yes [id number] 500mg Take 1 [facility] oL 500 mg 0-06 tablet by [facility] o f tablet 00:00: mouth (four) Medical times Branch daily as needed (muscle spasms). ibuprofen 2021-07 Yes [id number] 600mg Take 1 [facility] 600 mg 0-06 tablet by [facility] of tablet 00:00: mouth [place] 00 every 6 Medical (six) Branch hours as needed for Pain (scale 4-6). acetaminoph 2021-07 Yes [id number] 1000mg Take 2 [facility] en 500 mg 0-06 tablets by [facility] of tablet 00:00: mouth 00 every 8 Medical (eight) Branch hours as needed for Pain. traZODone 2021-07 Yes 50mg Take 1 [facility] 50 mg 0-06 tablet by [facility] of tablet 00:00: mouth at [place] 00 bedtime. Medical Branch methocarbam 2021-07 Yes [id number] 500mg Take 1 [facility] oL 500 mg 0-06 tablet by [facility] o f tablet 00:00: mouth (four) Medical times Branch daily as needed (muscle spasms). ibuprofen 2021-07 Yes [id number] 600mg Take 1 [facility] 600 mg 0-06 tablet by [facility] of tablet 00:00: mouth [place] 00 every 6 Medical (six) Branch hours as needed for Pain (scale 4-6). acetaminoph 2021-07 Yes [id number] 1000mg Take 2 [facility] en 500 mg 0-06 tablets by [facility] of tablet 00:00: mouth 00 every 8 Medical (eight) Branch hours as needed for Pain. traZODone 2021-07 Yes 50mg Take 1 [facility] 50 mg 0-06 tablet by [facility] of tablet 00:00: mouth at [place] 00 bedtime. Medical Branch methocarbam 2021-07 Yes [id number] 500mg Take 1 [facility] oL 500 mg 0-06 tablet by [facility] o f tablet 00:00: mouth (four) Medical times Branch daily as needed (muscle spasms). ibuprofen 2021-07 Yes [id number] 600mg Take 1 [facility] 600 mg 0-06 tablet by [facility] of tablet 00:00: mouth [place] 00 every 6 Medical (six) Branch hours as needed for Pain (scale 4-6). acetaminoph 2021-07 Yes [id number] 1000mg Take 2 [facility] en 500 mg 0-06 tablets by [facility] of tablet 00:00: mouth [place] 00 every 8 Medical (eight) Branch hours as needed for Pain. traZODone 2021-07 Yes 50mg Take 1 [facility] 50 mg 0-06 tablet by [facility] of tablet 00:00: mouth at [place] 00 bedtime. Medical Branch methocarbam 2021-07 Yes [id number] 500mg Take 1 [facility] oL 500 mg 0-06 tablet by [facility] o f tablet 00:00: mouth 4 [place] 00 (four) Medical times Branch daily as needed (muscle spasms). ibuprofen 2021-07 Yes [id number] 600mg Take 1 [facility] 600 mg 0-06 tablet by [facility] of tablet 00:00: mouth [place] 00 every 6 Medical (six) Branch hours as needed for Pain (scale 4-6). acetaminoph 2021-07 Yes [id number] 1000mg Take 2 [facility] en 500 mg 0-06 tablets by [facility] of tablet 00:00: mouth [place] 00 every 8 Medical (eight) Branch hours as needed for Pain. traZODone 2021-07 Yes 50mg Take 1 [facility] 50 mg 0-06 tablet by [facility] of tablet 00:00: mouth at [place] 00 bedtime. Medical Branch methocarbam 2021-07 Yes [id number] 500mg Take 1 [facility] oL 500 mg 0-06 tablet by [facility] o f tablet 00:00: mouth 4 [place] 00 (four) Medical times Branch daily as needed (muscle spasms). ibuprofen 2021-07 Yes [id number] 600mg Take 1 [facility] 600 mg 0-06 tablet by [facility] of tablet 00:00: mouth [place] 00 every 6 Medical (six) Branch hours as needed for Pain (scale 4-6). acetaminoph 2021-07 Yes [id number] 1000mg Take 2 [facility] en 500 mg 0-06 tablets by [facility] of tablet 00:00: mouth [place] 00 every 8 Medical (eight) Branch hours as needed for Pain. traZODone 2021-07 Yes 50mg Take 1 [facility] 50 mg 0-06 tablet by [facility] of tablet 00:00: mouth at [place] 00 bedtime. Medical Branch methocarbam 2021-07 Yes [id number] 500mg Take 1 [facility] oL 500 mg 0-06 tablet by [facility] o f tablet 00:00: mouth 4 00 (four) Medical times Branch daily as needed (muscle spasms). ibuprofen 2021-07 Yes [id number] 600mg Take 1 [facility] 600 mg 0-06 tablet by [facility] of tablet 00:00: mouth [place] 00 every 6 Medical (six) Branch hours as needed for Pain (scale 4-6). acetaminoph 2021-07 Yes [id number] 1000mg Take 2 [facility] en 500 mg 0-06 tablets by [facility] of tablet 00:00: mouth [place] 00 every 8 Medical (eight) Branch hours as needed for Pain. traZODone 2021-07 Yes 50mg Take 1 [facility] 50 mg 0-06 tablet by [facility] of tablet 00:00: mouth at [place] 00 bedtime. Medical Branch methocarbam 2021-07 Yes [id number] 500mg Take 1 [facility] oL 500 mg 0-06 tablet by [facility]y o f tablet 00:00: mouth 00 (four) Medical times Branch daily as needed (muscle spasms). ibuprofen 2021-07 Yes [id number] 600mg Take 1 [facility] 600 mg 0-06 tablet by [facility] of tablet 00:00: mouth [place] 00 every 6 Medical (six) Branch hours as needed for Pain (scale 4-6). acetaminoph 2021-07 Yes [id number] 1000mg Take 2 [facility] en 500 mg 0-06 tablets by [facility] of tablet 00:00: mouth [place] 00 every 8 Medical (eight) Branch hours as needed for Pain. traZODone 2021-07 Yes 50mg Take 1 [facility] 50 mg 0-06 tablet by [facility] of tablet 00:00: mouth at [place] 00 bedtime. Medical Branch methocarbam 2021-07 Yes [id number] 500mg Take 1 [facility] oL 500 mg 0-06 tablet by [facility]y o f tablet 00:00: mouth 4 00 (four) Medical times Branch daily as needed (muscle spasms). ibuprofen 2021-07 Yes [id number] 600mg Take 1 [facility] 600 mg 0-06 tablet by [facility] of tablet 00:00: mouth [place] 00 every 6 Medical (six) Branch hours as needed for Pain (scale 4-6). acetaminoph 2021-07 Yes [id number] 1000mg Take 2 [facility] en 500 mg 0-06 tablets by [facility] of tablet 00:00: mouth [place] 00 every 8 Medical (eight) Branch hours as needed for Pain. traZODone 2021-07 Yes 50mg Take 1 [facility] 50 mg 0-06 tablet by [facility] of tablet 00:00: mouth at [place] 00 bedtime. Medical Branch methocarbam 2021-07 Yes [id number] 500mg Take 1 [facility] oL 500 mg 0-06 tablet by [facility]y o f tablet 00:00: mouth (four) Medical times Branch daily as needed (muscle spasms). ibuprofen 2021-07 Yes [id number] 600mg Take 1 [facility] 600 mg 0-06 tablet by [facility] of tablet 00:00: mouth [place] 00 every 6 Medical (six) Branch hours as needed for Pain (scale 4-6). acetaminoph 2021-07 Yes [id number] 1000mg Take 2 [facility] en 500 mg 0-06 tablets by [facility]y of tablet 00:00: mouth 00 every 8 Medical (eight) Branch hours as needed for Pain. traZODone 2021-07 Yes 50mg Take 1 [facility] 50 mg 0-06 tablet by [facility] of tablet 00:00: mouth at 00 bedtime. Medical Branch methocarbam 2021-07 Yes [id number] 500mg Take 1 [facility] oL 500 mg 0-06 tablet by [facility]y o f tablet 00:00: mouth (four) Medical times Branch daily as needed (muscle spasms). ibuprofen 2021-07 Yes [id number] 600mg Take 1 [facility] 600 mg 0-06 tablet by [facility] of tablet 00:00: mouth 00 every 6 Medical (six) Branch hours as needed for Pain (scale 4-6). acetaminoph 2021-07 Yes [id number] 1000mg Take 2 [facility] en 500 mg 0-06 tablets by [facility]y of tablet 00:00: mouth [place] 00 every 8 Medical (eight) Branch hours as needed for Pain. traZODone 2021-07 Yes 50mg Take 1 [facility] 50 mg 0-06 tablet by [facility] of tablet 00:00: mouth at [place] 00 bedtime. Medical Branch methocarbam 2021-07 Yes [id number] 500mg Take 1 [facility] oL 500 mg 0-06 tablet by [facility]y o f tablet 00:00: mouth (four) Medical times Branch daily as needed (muscle spasms). ibuprofen 2021-07 Yes [id number] 600mg Take 1 [facility] 600 mg 0-06 tablet by [facility] of tablet 00:00: mouth [place] 00 every 6 Medical (six) Branch hours as needed for Pain (scale 4-6). acetaminoph 2021-07 Yes [id number] 1000mg Take 2 [facility] en 500 mg 0-06 tablets by [facility] of tablet 00:00: mouth [place] 00 every 8 Medical (eight) Branch hours as needed for Pain. traZODone 2021-07 Yes 50mg Take 1 [facility] 50 mg 0-06 tablet by [facility] of tablet 00:00: mouth at [place] 00 bedtime. Medical Branch methocarbam 2021-07 Yes [id number] 500mg Take 1 [facility] oL 500 mg 0-06 tablet by ity o f tablet 00:00: mouth 4 [place] 00 (four) Medical times Branch daily as needed (muscle spasms). ibuprofen 2021-07 Yes [id number] 600mg Take 1 [facility] 600 mg 0-06 tablet by [facility]y of tablet 00:00: mouth [place] 00 every 6 Medical (six) Branch hours as needed for Pain (scale 4-6). acetaminoph 2021-07 Yes [id number] 1000mg Take 2 [facility] en 500 mg 0-06 tablets by [facility]y of tablet 00:00: mouth [place] 00 every 8 Medical (eight) Branch hours as needed for Pain. traZODone 2021-07 Yes 50mg Take 1 [facility] 50 mg 0-06 tablet by [facility] of tablet 00:00: mouth at [place] 00 bedtime. Medical Branch methocarbam 2021-07 Yes [id number] 500mg Take 1 [facility] oL 500 mg 0-06 tablet by ity o f tablet 00:00: mouth 4 [place] 00 (four) Medical times Branch daily as needed (muscle spasms). ibuprofen 2021-07 Yes [id number] 600mg Take 1 [facility] 600 mg 0-06 tablet by [facility] of tablet 00:00: mouth [place] 00 every 6 Medical (six) Branch hours as needed for Pain (scale 4-6). acetaminoph 2021-07 Yes [id number] 1000mg Take 2 [facility] en 500 mg 0-06 tablets by [facility] of tablet 00:00: mouth [place] 00 every 8 Medical (eight) Branch hours as needed for Pain. traZODone 2021-07 Yes 50mg Take 1 [facility] 50 mg 0-06 tablet by [facility] of tablet 00:00: mouth at [place] 00 bedtime. Medical Branch methocarbam 2021-07 Yes [id number] 500mg Take 1 [facility] oL 500 mg 0-06 tablet by ity o f tablet 00:00: mouth 4 00 (four) Medical times Branch daily as needed (muscle spasms). ibuprofen 2021-07 Yes [id number] 600mg Take 1 [facility] 600 mg 0-06 tablet by [facility] of tablet 00:00: mouth [place] 00 every 6 Medical (six) Branch hours as needed for Pain (scale 4-6). acetaminoph 2021-07 Yes [id number] 1000mg Take 2 [facility] en 500 mg 0-06 tablets by [facility]y of tablet 00:00: mouth [place] 00 every 8 Medical (eight) Branch hours as needed for Pain. traZODone 2021-07 Yes 50mg Take 1 [facility] 50 mg 0-06 tablet by [facility] of tablet 00:00: mouth at 00 bedtime. Medical Branch methocarbam 2021-07 Yes [id number] 500mg Take 1 [facility] oL 500 mg 0-06 tablet by ity o f tablet 00:00: mouth (four) Medical times Branch daily as needed (muscle spasms). ibuprofen 2021-07 Yes [id number] 600mg Take 1 [facility] 600 mg 0-06 tablet by [facility] of tablet 00:00: mouth [place] 00 every 6 Medical (six) Branch hours as needed for Pain (scale 4-6). acetaminoph 2021-07 Yes [id number] 1000mg Take 2 [facility] en 500 mg 0-06 tablets by [facility] of tablet 00:00: mouth [place] 00 every 8 Medical (eight) Branch hours as needed for Pain. traZODone 2021-07 Yes 50mg Take 1 [facility] 50 mg 0-06 tablet by [facility] of tablet 00:00: mouth at [place] 00 bedtime. Medical Branch methocarbam 2021-07 Yes [id number] 500mg Take 1 [facility] oL 500 mg 0-06 tablet by [facility] o f tablet 00:00: mouth 4 00 (four) Medical times Branch daily as needed (muscle spasms). ibuprofen 2021-07 Yes [id number] 600mg Take 1 [facility] 600 mg 0-06 tablet by [facility] of tablet 00:00: mouth [place] 00 every 6 Medical (six) Branch hours as needed for Pain (scale 4-6). acetaminoph 2021-07 Yes [id number] 1000mg Take 2 [facility] en 500 mg 0-06 tablets by [facility] of tablet 00:00: mouth [place] 00 every 8 Medical (eight) Branch hours as needed for Pain. traZODone 2021-07 Yes 50mg Take 1 [facility] 50 mg 0-06 tablet by [facility] of tablet 00:00: mouth at [place] 00 bedtime. Medical Branch methocarbam 2021-07 Yes [id number] 500mg Take 1 [facility] oL 500 mg 0-06 tablet by [facility] o f tablet 00:00: mouth (four) Medical times Branch daily as needed (muscle spasms). ibuprofen 2021-07 Yes [id number] 600mg Take 1 [facility] 600 mg 0-06 tablet by [facility] of tablet 00:00: mouth [place] 00 every 6 Medical (six) Branch hours as needed for Pain (scale 4-6). acetaminoph 2021-07 Yes [id number] 1000mg Take 2 [facility] en 500 mg 0-06 tablets by [facility] of tablet 00:00: mouth [place] 00 every 8 Medical (eight) Branch hours as needed for Pain. traZODone 2021-07 Yes 50mg Take 1 [facility] 50 mg 0-06 tablet by [facility] of tablet 00:00: mouth at [place] 00 bedtime. Medical Branch methocarbam 2021-07 Yes [id number] 500mg Take 1 [facility] oL 500 mg 0-06 tablet by ity o f tablet 00:00: mouth (four) Medical times Branch daily as needed (muscle spasms). ibuprofen 2021-07 Yes [id number] 600mg Take 1 [facility] 600 mg 0-06 tablet by [facility] of tablet 00:00: mouth [place] 00 every 6 Medical (six) Branch hours as needed for Pain (scale 4-6). acetaminoph 2021-07 Yes [id number] 1000mg Take 2 [facility] en 500 mg 0-06 tablets by [facility] of tablet 00:00: mouth [place] 00 every 8 Medical (eight) Branch hours as needed for Pain. traZODone 2021-07 Yes 50mg Take 1 [facility] 50 mg 0-06 tablet by [facility] of tablet 00:00: mouth at [place] 00 bedtime. Medical Branch methocarbam 2021-07 Yes [id number] 500mg Take 1 [facility] oL 500 mg 0-06 tablet by [facility]y o f tablet 00:00: mouth 4 (four) Medical times Branch daily as needed (muscle spasms). ibuprofen 2021-07 Yes [id number] 600mg Take 1 [facility] 600 mg 0-06 tablet by [facility] of tablet 00:00: mouth [place] 00 every 6 Medical (six) Branch hours as needed for Pain (scale 4-6). acetaminoph 2021-07 Yes [id number] 1000mg Take 2 [facility] en 500 mg 0-06 tablets by [facility] of tablet 00:00: mouth [place] 00 every 8 Medical (eight) Branch hours as needed for Pain. traZODone 2021-07 Yes 50mg Take 1 [facility] 50 mg 0-06 tablet by [facility] of tablet 00:00: mouth at [place] 00 bedtime. Medical Branch methocarbam 2021-07 Yes [id number] 500mg Take 1 [facility] oL 500 mg 0-06 tablet by [facility] o f tablet 00:00: mouth (four) Medical times Branch daily as needed (muscle spasms). ibuprofen 2021-07 Yes [id number] 600mg Take 1 [facility] 600 mg 0-06 tablet by [facility] of tablet 00:00: mouth [place] 00 every 6 Medical (six) Branch hours as needed for Pain (scale 4-6). acetaminoph 2021-07 Yes [id number] 1000mg Take 2 [facility] en 500 mg 0-06 tablets by [facility] of tablet 00:00: mouth [place] 00 every 8 Medical (eight) Branch hours as needed for Pain. traZODone 2021-07 Yes 50mg Take 1 [facility] 50 mg 0-06 tablet by [facility] of tablet 00:00: mouth at [place] 00 bedtime. Medical Branch methocarbam 2021-07 Yes [id number] 500mg Take 1 [facility] oL 500 mg 0-06 tablet by ity o f tablet 00:00: mouth 00 (four) Medical times Branch daily as needed (muscle spasms). ibuprofen 2021-07 Yes [id number] 600mg Take 1 [facility] 600 mg 0-06 tablet by [facility] of tablet 00:00: mouth [place] 00 every 6 Medical (six) Branch hours as needed for Pain (scale 4-6). acetaminoph 2021-07 Yes [id number] 1000mg Take 2 [facility] en 500 mg 0-06 tablets by it[facility] of tablet 00:00: mouth [place] 00 every 8 Medical (eight) Branch hours as needed for Pain. traZODone 2021-07 Yes 50mg Take 1 [facility] 50 mg 0-06 tablet by [facility] of tablet 00:00: mouth at [place] 00 bedtime. Medical Branch methocarbam 2021-07 Yes [id number] 500mg Take 1 [facility] oL 500 mg 0-06 tablet by ity o f tablet 00:00: mouth 4 [place] 00 (four) Medical times Branch daily as needed (muscle spasms). ibuprofen 2021-07 Yes [id number] 600mg Take 1 [facility] 600 mg 0-06 tablet by [facility] of tablet 00:00: mouth [place] 00 every 6 Medical (six) Branch hours as needed for Pain (scale 4-6). acetaminoph 2021-07 Yes [id number] 1000mg Take 2 [facility] en 500 mg 0-06 tablets by [facility]y of tablet 00:00: mouth [place] 00 every 8 Medical (eight) Branch hours as needed for Pain. traZODone 2021-07 Yes 50mg Take 1 [facility] 50 mg 0-06 tablet by [facility] of tablet 00:00: mouth at [place] 00 bedtime. Medical Branch methocarbam 2021-07 Yes [id number] 500mg Take 1 [facility] oL 500 mg 0-06 tablet by ity o f tablet 00:00: mouth 4 [place] 00 (four) Medical times Branch daily as needed (muscle spasms). ibuprofen 2021-07 Yes [id number] 600mg Take 1 [facility] 600 mg 0-06 tablet by [facility] of tablet 00:00: mouth [place] 00 every 6 Medical (six) Branch hours as needed for Pain (scale 4-6). acetaminoph 2021-07 Yes [id number] 1000mg Take 2 [facility] en 500 mg 0-06 tablets by it[facility] of tablet 00:00: mouth [place] 00 every 8 Medical (eight) Branch hours as needed for Pain. traZODone 2021-07 Yes 50mg Take 1 [facility] 50 mg 0-06 tablet by [facility] of tablet 00:00: mouth at [place] 00 bedtime. Medical Branch methocarbam 2021-07 Yes [id number] 500mg Take 1 [facility] oL 500 mg 0-06 tablet by it[facility] o f tablet 00:00: mouth 4 00 (four) Medical times Branch daily as needed (muscle spasms). ibuprofen 2021-07 Yes [id number] 600mg Take 1 [facility] 600 mg 0-06 tablet by [facility] of tablet 00:00: mouth [place] 00 every 6 Medical (six) Branch hours as needed for Pain (scale 4-6). acetaminoph 2021-07 Yes [id number] 1000mg Take 2 [facility] en 500 mg 0-06 tablets by it[facility] of tablet 00:00: mouth [place] 00 every 8 Medical (eight) Branch hours as needed for Pain. traZODone 2021-07 Yes 50mg Take 1 [facility] 50 mg 0-06 tablet by ity of tablet 00:00: mouth at [place] 00 bedtime. Medical Branch methocarbam 2021-07 Yes [id number] 500mg Take 1 [facility] oL 500 mg 0-06 tablet by ity o f tablet 00:00: mouth (four) Medical times Branch daily as needed (muscle spasms). ibuprofen 2021-07 Yes [id number] 600mg Take 1 [facility] 600 mg 0-06 tablet by ity of tablet 00:00: mouth [place] 00 every 6 Medical (six) Branch hours as needed for Pain (scale 4-6). acetaminoph 2021-07 Yes [id number] 1000mg Take 2 [facility] en 500 mg 0-06 tablets by ity of tablet 00:00: mouth [place] 00 every 8 Medical (eight) Branch hours as needed for Pain. traZODone 2021-07 Yes 50mg Take 1 [facility] 50 mg 0-06 tablet by ity of tablet 00:00: mouth at [place] 00 bedtime. Medical Branch methocarbam 2021-07 Yes [id number] 500mg Take 1 [facility] oL 500 mg 0-06 tablet by ity o f tablet 00:00: mouth 00 (four) Medical times Branch daily as needed (muscle spasms). ibuprofen 2021-07 Yes [id number] 600mg Take 1 [facility] 600 mg 0-06 tablet by ity of tablet 00:00: mouth [place] 00 every 6 Medical (six) Branch hours as needed for Pain (scale 4-6). acetaminoph 2021-07 Yes [id number] 1000mg Take 2 [facility] en 500 mg 0-06 tablets by ity of tablet 00:00: mouth [place] 00 every 8 Medical (eight) Branch hours as needed for Pain. traZODone 2021-07 Yes 50mg Take 1 [facility] 50 mg 0-06 tablet by ity of tablet 00:00: mouth at [place] 00 bedtime. Medical Branch methocarbam 2021-07 Yes [id number] 500mg Take 1 [facility] oL 500 mg 0-06 tablet by ity o f tablet 00:00: mouth 4 (four) Medical times Branch daily as needed (muscle spasms). ibuprofen 2021-07 Yes [id number] 600mg Take 1 [facility] 600 mg 0-06 tablet by ity of tablet 00:00: mouth [place] 00 every 6 Medical (six) Branch hours as needed for Pain (scale 4-6). acetaminoph 2021-07 Yes [id number] 1000mg Take 2 [facility] en 500 mg 0-06 tablets by ity of tablet 00:00: mouth 00 every 8 Medical (eight) Branch hours as needed for Pain. traZODone 2021-07 Yes 50mg Take 1 [facility] 50 mg 0-06 tablet by ity of tablet 00:00: mouth at 00 bedtime. Medical Branch methocarbam 2021-07 Yes [id number] 500mg Take 1 [facility] oL 500 mg 0-06 tablet by ity o f tablet 00:00: mouth (four) Medical times Branch daily as needed (muscle spasms). ibuprofen 2021-07 Yes [id number] 600mg Take 1 [facility] 600 mg 0-06 tablet by ity of tablet 00:00: mouth [place] 00 every 6 Medical (six) Branch hours as needed for Pain (scale 4-6). acetaminoph 2021-07 Yes [id number] 1000mg Take 2 [facility] en 500 mg 0-06 tablets by ity of tablet 00:00: mouth [place] 00 every 8 Medical (eight) Branch hours as needed for Pain. traZODone 2021-07 Yes 50mg Take 1 [facility] 50 mg 0-06 tablet by ity of tablet 00:00: mouth at [place] 00 bedtime. Medical Branch methocarbam 2021-07 Yes [id number] 500mg Take 1 [facility] oL 500 mg 0-06 tablet by ity o f tablet 00:00: mouth (four) Medical times Branch daily as needed (muscle spasms). ibuprofen 2021-07 Yes [id number] 600mg Take 1 [facility] 600 mg 0-06 tablet by ity of tablet 00:00: mouth [place] 00 every 6 Medical (six) Branch hours as needed for Pain (scale 4-6). atomoxetine 2021-07 Yes 40mg 40 mg, Univ ers (STRATTERA) 0-05 Oral, ity of capsule 40 16:45: DAILY, [place] mg 00 First dose Medical on Mon Branch 04/06/22 at 1145, Until Discontinu ed, Routine
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
Reason for non-formul freddie use: PATIENT CURRENTLY TAKING NONFORMULA RY PRODUCT lamoTRIgine 2021-07 Yes 25mg 25 mg, Univ ers (LAMICTAL) 0-05 Oral, ity of tablet 25 16:45: DAILY, [place] mg 00 First dose Medical on Mon Branch 04/06/22 at 1145, Until Discontinu ed, Routine traMADoL 2021-07 Yes 50mg 50 mg, Univers (ULTRAM) 0-05 Oral, Q8H, ity o f tablet 50 16:45: First dose [place] mg 00 on Mon Medical 04/06/22 at Branch 1145, Until Discontinu ed, Routine oxyCODONE 2021-07 Yes 5mg 5 mg, Univers immediate 0-05 Oral, ity of release 16:31: Q4HPRN, [place] tablet 5 mg 53 Starting Medi torito on Mon Branch 04/06/22 at 1131, Until Discontinu ed, Routine, Pain (scale 7-10)<b r>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 Restricted medication : KEAGAN LUO celecoxib 2021-07 Yes 100mg 100 mg, Univ ers (CELEBREX) 0-05 Oral, BID ity of capsule 100 15:15: MEALS, [place] mg 00 First dose Medical on Mon Branch 04/06/22 at 1015, Until Discontinu ed, Routine acetaminoph 2021-07 Yes 1000mg 1,000 mg, Univers en 0-05 Oral, Q8H, ity of (TYLENOL) 15:15: First dose [place] tablet 00 on Mon Medical 1,000 mg 04/06/22 at Branc h 1015, Until Discontinu ed, Routine tamsulosin 2021-07 Yes .4mg 0.4 mg, Univ ers (FLOMAX) 0-05 Oral, ity of capsule 0.4 14:00: DAILY, [place] mg 00 First dose Medical on Mon04/06/22 at 0900, Until Discontinu ed, Routine methocarbam 2021-07 Yes 1000mg 1,000 mg, [facility] oL 0-05 Oral, QID, ity of (ROBAXIN) 13:00: First dose [place] tablet 00 mon Medical 1,000 mg 04/06/22 at [facility] h 0800, Until Discontinu ed, Routine enoxaparin 2021-07 Yes 30mg 30 mg, Unive rs (LOVENOX) 0-05 Subcutaneo ity of injection 01:00: us, Q12H, [place] as 30 mg 00 First dose Medical on Mon04/05/22 at 2000, Until Discontinu ed, Routine methocarbam 2021-07 No 1000mg 1,000 mg, [facility] oL 0-04 10-05 Intravenou ity of (ROBAXIN) 19:00: 11:05 s, Q8H, [place] injection 00 :13 First dose Medi [place] 1,000 mg on Mon04/05/22 at 1400, Until Discontinu ed, Routine acetaminoph 2021-07 No 1000mg 1,000 mg, Univers en ADULT 0-04 10-05 IV ity of (OFIRMEV) 19:00: 14:37 Infusion, [place] injection 00 :00 at 400 Medical 1,000 mg mL/hr Branch Administer over 15 Minutes, Q8H, 3 doses, First dose on Mon04/05/22 at 1400, Last dose on Mon04/06/22 at 0600, Routine
Indicatio n: Perioperat janna Patient polyethylen 2021-07 Yes 17g 17 g, Unive rs e glycol 0-04 Oral, ity of 3350 powder 14:15: DAILY, [place] 17 g 00 First dose Medical on Mon04/05/22 at 0915, Until Discontinu ed, Routine ibuprofen 2021-07 No 600mg 600 mg, Uni vers (IBU) 0-04 10-04 Oral, TID ity of tablet 600 13:00: 14:14 MEALS, [place] mg 00 :08 First dose Medical on Tu 04/05/22 at 0800, Until Discontinu ed, Routine acetaminoph 2021-07- No 650mg 650 mg, U nivers en 0-04 10-04 Oral, Q6H, ity of (TYLENOL) 05:00: 15:12 First dose [place] tablet 650 00 :14 on Mon Medical mg 04/05/22 at Branch 0000, Until Discontinu ed, Routine methocarbam 2021-07 No 500mg 500 mg, U nivers oL 0-04 10-04 Oral, QID, ity of (ROBAXIN) 01:00: 15:09 First dose [place] tablet 500 00 :36 on Mon Medical mg 04/04/22 at Branch 2000, Until Discontinu ed, Routine morpHINE (2 2021-07 No 2mg 2 mg, Slow Univers mg/mL) 0-03 10-04 IV Push, ity of injection 2 23:22: 14:14 Q4HPRN, [place] mg 51 :08 Starting Medical on Mon [place] 04/04/22 at 1822, Until Mon04/05/22 at 0914, Routine, Pain (scale 7-10) HYDROcodone 2021-07 No 1{tbl} 1 tablet, Univers -acetaminop 0-03 10-04 Oral, ity of hen (NORCO 23:22: 14:14 Q6HPRN, [place] 5) 5-325 mg 51 :08 Starting Medi tor[place] tablet 1 on Mon [place] tablet 04/04/22 at 1822, Until Mon04/05/22 at 0914, Routine, Pain (scale 4-6) FENTanyl PF 2021-07 No 50ug 50 mcg, Un [facility] (SUBLIMAZE 0-03 10-03 Slow IV ity o f (PF)) 22:00: 21:05 Push, [place] injection 00 :00 ONCE, 1 Medical 50 mcg dose, On [place] Mon04/04/22 at 1700, Routine FENTanyl PF 2021-07 No 50ug 50 mcg, Un [place] (SUBLIMAZE 0-03 10-03 Slow IV ity o f (PF)) 20:30: 19:32 Push, [place] injection 00 :00 ONCE, 1 Medical 50 mcg dose, On [facility] 04/04/22 at 1530, Routine ondansetron 2021-07 No 4mg 4 mg, Slow Univers (ZOFRAN 0- IV Push, ity of (PF)) 19:45: 19:32 ONCE, 1 [place] injection 4 00 :00 dose, On Medi torito mg Mon Branch 04/04/22 at 1445, ARLEN iopamidol 2021-07- No [id number] 80mL 80 mL, Univers (ISOVUE 004-04 Intravenou ity o f 370-500 mL) 19:00: 18:49 s, ONCE, 1 [place] injection 00 :00 dose, On Medica l 80 mL Mon Branch 04/04/22 at 1400, Routine NaCl 0.9% No 1000mL at 999 Uni vers (NS) bolus 04-01 09-30 mL/hr, ity of infusion 05:15: 06:27 1,000 mL, [place] 1,000 mL 00 :00 IV Medical Infusion, Branch ONCE, 1 dose, On Mon04/01/22 at 0015, STAT ondansetron 2021- No 4mg 4 mg, Slow Univers (ZOFRAN 04-0130 IV Push, ity of (PF)) 04:15: 04:36 ONCE, 1 [place] injection 4 00 :00 dose, On Medi torito mg [place] Branch 03/31/22 at 2315, ARLEN ARIPiprazol 0 Yes [id number] 300mg 300 mg by Univers e (ABILIFY 9-15 Intramuscu ity of MAINTENA) 00:00: lar route [place] 300 mg sers 00 once every Me dical month. Branch ARIPiprazol 0 Yes 300mg 300 mg by Univers e (ABILIFY 9-15 Intramuscu ity of MAINTENA) 00:00: lar route [place] 300 mg sers 00 once every Me dical month. Branch ARIPiprazol 2021-0 Yes [id number] 300mg 300 mg by Univers e (ABILIFY 9-15 Intramuscu ity of MAINTENA) 00:00: lar route [place] 300 mg sers 00 once every Me dical month. Branch ARIPiprazol 0 Yes 300mg 300 mg by Univers e (ABILIFY 9-15 Intramuscu ity of MAINTENA) 00:00: lar route [place] 300 mg sers 00 once every Me dical month. Branch ARIPiprazol 2022-0 Yes [id number] 300mg 300 mg by Univers e (ABILIFY 9-15 Intramuscu ity of MAINTENA) 00:00: lar route [place] 300 mg sers 00 once every Me dical month. Branch ARIPiprazol 2-0 Yes 300mg 300 mg by Univers e (ABILIFY 9-15 Intramuscu ity of MAINTENA) 00:00: lar route [place] 300 mg sers 00 once every Me dical month. Branch ARIPiprazol 2-0 Yes [id number] 300mg 300 mg by Univers e (ABILIFY 9-15 Intramuscu ity of MAINTENA) 00:00: lar route [place] 300 mg sers 00 once every Me dical month. Branch ARIPiprazol 2-0 Yes 300mg 300 mg by Univers e (ABILIFY 9-15 Intramuscu ity of MAINTENA) 00:00: lar route [place] 300 mg sers 00 once every Me dical month. Branch ARIPiprazol 2-0 Yes [id number] 300mg 300 mg by Univers e (ABILIFY 9-15 Intramuscu ity of MAINTENA) 00:00: lar route [place] 300 mg sers 00 once every Me dical month. Branch ARIPiprazol 2-0 Yes 300mg 300 mg by Univers e (ABILIFY 9-15 Intramuscu ity of MAINTENA) 00:00: lar route [place] 300 mg sers 00 once every Me dical month. Branch ARIPiprazol 2022-0 Yes [id number] 300mg 300 mg by Univers e (ABILIFY 9-15 Intramuscu ity of MAINTENA) 00:00: lar route [place] 300 mg sers 00 once every Me dical month. Branch ARIPiprazol 2022-0 Yes 300mg 300 mg by Univers e (ABILIFY 9-15 Intramuscu ity of MAINTENA) 00:00: lar route [place] 300 mg sers 00 once every Me dical month. Branch ARIPiprazol 2022-0 Yes [id number] 300mg 300 mg by Univers e (ABILIFY 9-15 Intramuscu ity of MAINTENA) 00:00: lar route [place] 300 mg sers 00 once every Me dical month. Branch ARIPiprazol 2021-0 Yes 300mg 300 mg by Univers e (ABILIFY 9-15 Intramuscu ity of MAINTENA) 00:00: lar route [place] 300 mg sers 00 once every Me dical month. Branch ARIPiprazol 2021-0 Yes [id number] 300mg 300 mg by Univers e (ABILIFY 9-15 Intramuscu ity of MAINTENA) 00:00: lar route [place] 300 mg sers 00 once every Me dical month. Branch ARIPiprazol 2021-0 Yes [id number] 300mg 300 mg by Univers e (ABILIFY 9-15 Intramuscu ity of MAINTENA) 00:00: lar route [place] 300 mg sers 00 once every Me dical month. Branch ARIPiprazol 2021-0 Yes [id number] 300mg 300 mg by Univers e (ABILIFY 9-15 Intramuscu ity of MAINTENA) 00:00: lar route [place] 300 mg sers 00 once every Me dical month. Branch ARIPiprazol 2021-0 Yes [id number] 300mg 300 mg by Univers e (ABILIFY 9-15 Intramuscu ity of MAINTENA) 00:00: lar route [place] 300 mg sers 00 once every Me dical month. Branch ARIPiprazol 2021-0 Yes [id number] 300mg 300 mg by Univers e (ABILIFY 9-15 Intramuscu ity of MAINTENA) 00:00: lar route [place] 300 mg sers 00 once every Me dical month. Branch ARIPiprazol 2-0 Yes [id number] 300mg 300 mg by Univers e (ABILIFY 9-15 Intramuscu ity of MAINTENA) 00:00: lar route [place] 300 mg sers 00 once every Me dical month. Branch ARIPiprazol 2021-0 2- No 300mg 300 mg by Univers e (ABILIFY 9-15 10-06 Intramuscu it y of MAINTENA) 00:00: 00:00 lar route [place] 300 mg sers 00 :00 once every Me dical month. Branch ARIPiprazol 2021-0 2022- No 300mg 300 mg by Univers e (ABILIFY 03-17 [facility]cu [facility] y [facility] 00:00: 00:00 lar route [place] 300 mg sers 00 :00 once every Me dical month. Branch ARIPiprazol 2-0 2022- No 300mg 300 mg by Univers e (ABILIFY 03-17 [facility]cu it y [facility]) 00:00: 00:00 lar route [place] 300 mg sers 00 :00 once every Me dical month. Branch ARIPiprazol 2-0 2022- No 300mg 300 mg by Univers e (ABILIFY 03-17 Intramuscu it y of [facility]) 00:00: 00:00 lar route [place] 300 mg sers 00 :00 once every Me dical month. Branch ARIPiprazol 2-0 2022- No 300mg 300 mg by Univers e (ABILIFY 03-17 Intramuscu it y [facility]) 00:00: 00:00 lar route [place] 300 mg sers 00 :00 once every Me dical month. Branch ARIPiprazol 2-0 2022- No 300mg 300 mg by Univers e (ABILIFY 03-17 Intramuscu it y of [facility]) 00:00: 00:00 lar route [place] 300 mg sers 00 :00 once every Me dical month. Branch ARIPiprazol 2022-0 2022- No 300mg 300 mg by Univers e (ABILIFY 03-17 Intramuscu it y of [facility]) 00:00: 00:00 lar route [place] 300 mg sers 00 :00 once every Me dical month. Branch ARIPiprazol 2022-0 2022- No 300mg 300 mg by Univers e (ABILIFY 03-17 [facility]cu it y [facility]) 00:00: 00:00 lar route [place] 300 mg sers 00 :00 once every Me dical month. Branch ARIPiprazol 2022-0 2022- No 300mg 300 mg by Univers e (ABILIFY 03-17 Intramuscu it y of MAINTENA) 00:00: 00:00 lar route [place] 300 mg sers 00 :00 once every Me dical month. Branch ARIPiprazol 2-0 2022- No 300mg 300 mg by Univers e (ABILIFY 03-17 Intramuscu it y of MAINTENA) 00:00: 00:00 lar route [place] 300 mg sers 00 :00 once every Me dical month. Branch ARIPiprazol 2021-0 2022- No 300mg 300 mg by Univers e (ABILIFY 03-17 Intramuscu it y of MAINTENA) 00:00: 00:00 lar route [place] 300 mg sers 00 :00 once every Me dical month. Branch ARIPiprazol 2-0 2022- No 300mg 300 mg by Univers e (ABILIFY 03-17 Intramuscu it y of MAINTENA) 00:00: 00:00 lar route [place] 300 mg sers 00 :00 once every Me dical month. Branch ARIPiprazol 2021-0 2022- No 300mg 300 mg by Univers e (LIFY 03-17 Intramuscu it y of MAINTENA) 00:00: 00:00 lar route [place] 300 mg sers 00 :00 once every Me dical month. Branch ARIPiprazol 2021-0 2022- No 300mg 300 mg by Univers e (ABILIFY 03-17 Intramuscu it y of MAINTENA) 00:00: 00:00 lar route [place] 300 mg sers 00 :00 once every Me dical month. Branch ARIPiprazol 2-0 2022- No 300mg 300 mg by Univers e (ABILIFY 03-17 Intramuscu it y of MAINTENA) 00:00: 00:00 lar route [place] 300 mg sers 00 :00 once every Me dical month. Branch ARIPiprazol 2021-0 2022- No 300mg 300 mg by Univers e (ABILIFY 03-17 Intramuscu it y of MAINTENA) 00:00: 00:00 lar route [place] 300 mg sers 00 :00 once every Me dical month. Branch ARIPiprazol 2021- No 300mg 300 mg by Univers e (ABILIFY 03-17 [facility]) 00:00: 00:00 lar route [place] 300 mg sers 00 :00 once every Me dical month. Branch ARIPiprazol 2021- No 300mg 300 mg by Univers e (ABILIFY 03-17 Intr[facility] y [facility]) 00:00: 00:00 lar route [place] 300 mg sers 00 :00 once every Me dical month. Branch ARIPiprazol 2021- Yes [id number] 10mg Take 1 U nivers e 10 mg 9-08 10-09 tablet by ity of tablet 00:00: 04:59 mouth in [place] 00 :00 the Medical morning Branch for 30 days. ARIPiprazol 2021- Yes [id number] 10mg Take 1 U nivers e 10 mg 9-08 10-09 tablet by ity of tablet 00:00: 04:59 mouth in [place] 00 :00 the Medical morning Branch for 30 days. ARIPiprazol 2021- Yes [id number] 10mg Take 1 U nivers e 10 mg 9-08 10-09 tablet by ity of tablet 00:00: 04:59 mouth in [place] 00 :00 the Medical morning Branch for 30 days. ARIPiprazol 2021- Yes [id number] 10mg Take 1 U nivers e 10 mg 9-08 10-09 tablet by ity of tablet 00:00: 04:59 mouth in [place] 00 :00 the Medical morning Branch for 30 days. ARIPiprazol 2021- Yes [id number] 10mg Take 1 U nivers e 10 mg 9-08 10-09 tablet by ity of tablet 00:00: 04:59 mouth in [place] 00 :00 the Medical morning Branch for 30 days. ARIPiprazol 2021- Yes [id number] 10mg Take 1 U nivers e 10 mg 9-08 10-09 tablet by ity of tablet 00:00: 04:59 mouth in [place] 00 :00 [facility] for 30 days. ARIPiprazol 2021- Yes [id number] 10mg Take 1 U nivers e 10 mg 9-08 10-09 tablet by ity of tablet 00:00: 04:59 mouth in [place] 00 :00 the [facility] for 30 days. ARIPiprazol 2021- Yes [id number] 10mg Take 1 U nivers e 10 mg 9-08 10-09 tablet by ity of tablet 00:00: 04:59 mouth in [place] 00 :00 the [facility] for 30 days. ARIPiprazol 2021- Yes [id number] 10mg Take 1 U nivers e 10 mg 9-08 10-09 tablet by ity of tablet 00:00: 04:59 mouth in [place] 00 :00 the [facility] for 30 days. ARIPiprazol 2021- Yes [id number] 10mg Take 1 U nivers e 10 mg 9-08 10-09 tablet by ity of tablet 00:00: 04:59 mouth in [place] 00 :00 [facility] for 30 days. ARIPiprazol 2021- Yes [id number] 10mg Take 1 U nivers e 10 mg 9-08 10-09 tablet by ity of tablet 00:00: 04:59 mouth in [place] 00 :00 [facility] for 30 days. ARIPiprazol 2021- No [id number] 10mg Take 1 U nivers e 10 mg 9-08 10-09 tablet by ity of tablet 00:00: 04:59 mouth in [place] 00 :00 [facility] for 30 days. ARIPiprazol 2021- No [id number] 10mg Take 1 U nivers e 10 mg 9-08 10-09 tablet by ity of tablet 00:00: 04:59 mouth in [place] 00 :00 [facility] for 30 days. ARIPiprazol 2- No [id number] 10mg Take 1 U nivers e 10 mg 9-08 10-09 tablet by ity of tablet 00:00: 04:59 mouth in [place] 00 :00 [facility] for 30 days. ARIPiprazol 2021- No [id number] 10mg Take 1 U nivers e 10 mg 9-08 10-09 tablet by ity of tablet 00:00: 04:59 mouth in [place] 00 :00 the [facility] for 30 days. ARIPiprazol 2021- No [id number] 10mg Take 1 U nivers e 10 mg 9-08 10-09 tablet by ity of tablet 00:00: 04:59 mouth in [place] 00 :00 the [facility] for 30 days. ARIPiprazol 2021- No [id number] 10mg Take 1 U nivers e 10 mg 9-08 10-09 tablet by ity of tablet 00:00: 04:59 mouth in [place] 00 :00 the [facility] for 30 days. ARIPiprazol 2021- No [id number] 10mg Take 1 U nivers e 10 mg 9-08 10-09 tablet by ity of tablet 00:00: 04:59 mouth in [place] 00 :00 the [facility] for 30 days. ARIPiprazol 2021- No [id number] 10mg Take 1 U nivers e 10 mg 9-08 10-09 tablet by ity of tablet 00:00: 04:59 mouth in [place] 00 :00 the [facility] for 30 days. ARIPiprazol 2021- No [id number] 10mg Take 1 U nivers e 10 mg 9-08 10-09 tablet by ity of tablet 00:00: 04:59 mouth in [place] 00 :00 the [facility] for 30 days. ARIPiprazol 2021- No [id number] 10mg Take 1 U nivers e 10 mg 9-08 10-09 tablet by ity of tablet 00:00: 04:59 mouth in [place] 00 :00 the [facility] for 30 days. ARIPiprazol 2021-2021- No [id number] 10mg Take 1 U nivers e 10 mg 9-08 10-09 tablet by ity of tablet 00:00: 04:59 mouth in [place] 00 :00 the [facility] for 30 days. ARIPiprazol 2021-2021- No [id number] 10mg Take 1 U nivers e 10 mg 9-08 10-09 tablet by ity of tablet 00:00: 04:59 mouth in [place] 00 :[address] [facility] for 30 days. ARIPiprazol 2021- No [id number] 10mg Take 1 U nivers e 10 mg 9-08 10-09 tablet by ity of tablet 00:00: 04:59 mouth in [place] 00 :00 the [facility] for 30 days. ARIPiprazol 2021- No [id number] 10mg Take 1 U nivers e 10 mg 9-08 10-09 tablet by ity of tablet 00:00: 04:59 mouth in [place] 00 :00 the [facility] for 30 days. ARIPiprazol 2021- No [id number] 10mg Take 1 U nivers e 10 mg 9-08 10-09 tablet by ity of tablet 00:00: 04:59 mouth in [place] 00 :00 the [facility] for 30 days. ARIPiprazol 2021- No [id number] 10mg Take 1 U nivers e 10 mg 9-08 10-09 tablet by ity of tablet 00:00: 04:59 mouth in [place] 00 :00 the [facility] for 30 days. ARIPiprazol 2021- No [id number] 10mg Take 1 U nivers e 10 mg 9-08 10-09 tablet by ity of tablet 00:00: 04:59 mouth in [place] 00 :00 the [facility] for 30 days. ARIPiprazol 2021- Yes [id number] 300mg 300 mg by Univers e (ABILIF03-09 Intramuscu it y of [facility]) 00:00: 05:59 lar route [place] 300 mg sers 00 :00 once every Me dical month for Branch 90 days. ARIPiprazol 2021- No [id number] 300mg 300 mg by Univers e (ABILIF03-09 Intramuscu it y of [facility]) 00:00: 00:00 lar route [place] 300 mg sers 00 :00 once every Me dical month for Branch 90 days. ARIPiprazol 2021- No [id number] 300mg 300 mg by Univers e (ABILIFY 03-09 Intramuscu it y of [facility]) 00:00: 00:00 lar route [place] 300 mg sers 00 :00 once every Me dical month for Branch 90 days. ARIPiprazol 2021-0 2- No [id number] 300mg 300 mg by Univers e (ABILIY 03-09 Intramuscu it y of [facility]) 00:00: 00:00 lar route [place] 300 mg sers 00 :00 once every Me dical month for Branch 90 days. ARIPiprazol 2021-0 2021- No [id number] 300mg 300 mg by Univers e (ABILIY 03-09 Intramuscu it y of [facility]) 00:00: 00:00 lar route [place] 300 mg sers 00 :00 once every Me dical month for Branch 90 days. ARIPiprazol 2021-0 2021- No [id number] 300mg 300 mg by Univers e ([facility] y of [facility]) 00:00: 00:00 lar route [place] 300 mg sers 00 :00 once every Me dical month for Branch 90 days. QUEtiapine 2021-0 2- No [id number] 50mg Take 1 [facility] [place] 50 mg 7-18 -08 tablet by ity of tablet 00:00: 00:00 mouth in [place] 00 :00 the Medical morning Branch and 1 tablet in the evening. Do all this for 60 days. QUEtiapine 2021-0 2- No [id number] 50mg Take 1 [facility] [place] 50 mg 7-18 -08 tablet by ity of tablet 00:00: 00:00 mouth in [place] 00 :00 the Medical morning Branch and 1 tablet in the evening. Do all this for 60 days. QUEtiapine 2-0 2- No [id number] 50mg Take 1 [facility] [place] 50 mg 7-18 09-08 tablet by ity of tablet 00:00: 00:00 mouth in [place] 00 :00 the Medical morning Branch and 1 tablet in the evening. Do all this for 60 days. QUEtiapine 2-0 2022- No [id number] 50mg Take 1 [facility] [place] 50 mg 7-18 09-08 tablet by ity of tablet 00:00: 00:00 mouth in [place] 00 :00 the Medical morning Branch and 1 tablet in the evening. Do all this for 60 days. QUEtiapine 2021- No [id number] 50mg Take 1 [facility] [place] 50 mg 01-17 tablet by ity of tablet 00:00: 00:00 mouth in [place] 00 :00 the Medical morning Branch and 1 tablet in the evening. Do all this for 60 days. lithium 2021- No [id number] 300mg Take 1 U nivers carbonate 12-07 tablet by ity of CR 300 mg 00:00: 04:59 mouth at [place] SR tablet 00 :00 bedtime Medical for 90 Branch days. lithium No [id number] 450mg Take 1 U nivers carbonate 12-07 tablet by ity of CR 450 mg 00:00: 04:59 mouth [place] SR tablet 00 :00 every Medical morning Branch for 90 days. lithium No [id number] 300mg Take 1 U nivers carbonate 12-07 tablet by ity of CR 300 mg 00:00: 04:59 mouth at [place] SR tablet 00 :00 bedtime Medical for 90 Branch days. lithium No [id number] 450mg Take 1 U nivers carbonate 12-07 tablet by ity of CR 450 mg 00:00: 04:59 mouth [place] SR tablet 00 :00 every Medical morning Branch for 90 days. lithium No [id number] 300mg Take 1 U nivers carbonate 12-07 tablet by ity of CR 300 mg 00:00: 04:59 mouth at [place] SR tablet 00 :00 bedtime Medical for 90 Branch days. lithium No [id number] 450mg Take 1 U nivers carbonate 12-07 tablet by ity of CR 450 mg 00:00: 04:59 mouth [place] SR tablet 00 :00 every Medical morning Branch for 90 days. lithium 2021- No [id number] 300mg Take 1 U nivers carbonate 12-07 tablet by ity of CR 300 mg 00:00: 04:59 mouth at [place] SR tablet 00 :00 bedtime Medical for 90 Branch days. lithium No [id number] 450mg Take 1 U nivers carbonate 12-07 tablet by ity of CR 450 mg 00:00: 04:59 mouth [place] SR tablet 00 :00 every Medical morning Branch for 90 days. lithium 2021- No [id number] 300mg Take 1 U nivers carbonate 12-07 tablet by ity of CR 300 mg 00:00: 04:59 mouth at [place] SR tablet 00 :00 bedtime Medical for 90 Branch days. lithium 2021- No [id number] 450mg Take 1 U nivers carbonate 12-07 tablet by ity of CR 450 mg 00:00: 04:59 mouth [place] SR tablet 00 :00 every Medical morning Branch for 90 days. miSOPROStoL Yes [id number] 200ug Take 1 [facility] 200 mcg 4-29 tablet by ity of tablet 00:00: mouth SEE-INSTRU Medical CTIONS. Branch Take one tab the night before and one tab the morning of procedure miSOPROStoL Yes [id number] 200ug Take 1 [facility] 200 mcg 4-29 tablet by ity of tablet 00:00: mouth SEE-INSTRU Medical CTIONS. Branch Take one tab the night before and one tab the morning of procedure miSOPROStoL Yes [id number] 200ug Take 1 [facility] 200 mcg 4-29 tablet by ity of tablet 00:00: mouth SEE-INSTRU Medical CTIONS. Branch Take one tab the night before and one tab the morning of procedure miSOPROStoL Yes [id number] 200ug Take 1 [facility] 200 mcg 4-29 tablet by ity of tablet 00:00: mouth SEE-INSTRU Medical CTIONS. Branch Take one tab the night before and one tab the morning of procedure miSOPROStoL Yes [id number] 200ug Take 1 [facility] 200 mcg 4-29 tablet by ity of tablet 00:00: mouth SEE-INSTRU Medical CTIONS. Branch Take one tab the night before and one tab the morning of procedure miSOPROStoL Yes [id number] 200ug Take 1 [facility] 200 mcg 4-29 tablet by ity of tablet 00:00: mouth SEE-INSTRU Medical CTIONS. Branch Take one tab the night before and one tab the morning of procedure miSOPROStoL Yes [id number] 200ug Take 1 [facility] 200 mcg 4-29 tablet by ity of tablet 00:00: mouth SEE-INSTRU Medical CTIONS. Branch Take one tab the night before and one tab the morning of procedure miSOPROStoL Yes [id number] 200ug Take 1 [facility] 200 mcg 4-29 tablet by ity of tablet 00:00: mouth SEE-INSTRU Medical CTIONS. Branch Take one tab the night before and one tab the morning of procedure miSOPROStoL Yes [id number] 200ug Take 1 [facility] 200 mcg 4-29 tablet by ity of tablet 00:00: mouth SEE-INSTRU Medical CTIONS. Branch Take one tab the night before and one tab the morning of procedure miSOPROStoL 2021- No [id number] 200ug Take 1 [facility] 200 mcg 4-29 10-06 tablet by ity of tablet 00:00: 00:00 [facility] 00 : SEE-INSTRU Medical CTIONS. Branch Take one tab the night before and one tab the morning of procedure miSOPROStoL 2021- No [id number] 200ug Take 1 [facility] 200 mcg 4-29 10-06 tablet by ity of tablet 00:00: 00:00 [facility] 00 : SEE-INSTRU Medical CTIONS. Branch Take one tab the night before and one tab the morning of procedure miSOPROStoL 2021- No [id number] 200ug Take 1 [facility] 200 mcg 4-29 10-06 tablet by ity of tablet 00:00: 00:00 [facility] 00 :00 SEE-INSTRU Medical CTIONS. Branch Take one tab the night before and one tab the morning of procedure miSOPROStoL 2021- No [id number] 200ug Take 1 [facility] 200 mcg 4-29 10-06 tablet by ity of tablet 00:00: 00:00 [facility] 00 :00 SEE-INSTRU Medical CTIONS. Branch Take one tab the night before and one tab the morning of procedure miSOPROStoL 2021- No [id number] 200ug Take 1 [facility] 200 mcg 4-29 10-06 tablet by ity of tablet 00:00: 00:00 [facility] 00 :00 SEE-INSTRU Medical CTIONS. Branch Take one tab the night before and one tab the morning of procedure miSOPROStoL 2021- No [id number] 200ug Take 1 [facility] 200 mcg 4-29 10-06 tablet by ity of tablet 00:00: 00:00 mouth [place] 00 :00 SEE-INSTRU Medical CTIONS. Branch Take one tab the night before and one tab the morning of procedure miSOPROStoL 2021- No [id number] 200ug Take 1 [facility] 200 mcg 4-29 10-06 tablet by ity of tablet 00:00: 00:00 [facility] [place] 00 :00 SEE-INSTRU Medical CTIONS. Branch Take one tab the night before and one tab the morning of procedure miSOPROStoL 2021- No [id number] 200ug Take 1 [facility] 200 mcg 4-29 10-06 tablet by ity of tablet 00:00: 00:00 [facility] 00 :00 SEE-INSTRU Medical CTIONS. Branch Take one tab the night before and one tab the morning of procedure miSOPROStoL 2021- No [id number] 200ug Take 1 [facility] 200 mcg 4-29 10-06 tablet by ity of tablet 00:00: 00:00 [facility] 00 :00 SEE-INSTRU Medical CTIONS. Branch Take one tab the night before and one tab the morning of procedure miSOPROStoL 2021- No [id number] 200ug Take 1 [facility] 200 mcg 4-29 10-06 tablet by ity of tablet 00:00: 00:00 [facility] 00 :00 SEE-INSTRU Medical CTIONS. Branch Take one tab the night before and one tab the morning of procedure miSOPROStoL 2021- No [id number] 200ug Take 1 [facility] 200 mcg 4-29 10-06 tablet by ity of tablet 00:00: 00:00 [facility] 00 :00 SEE-INSTRU Medical CTIONS. Branch Take one tab the night before and one tab the morning of procedure miSOPROStoL 2021- No [id number] 200ug Take 1 [facility] 200 mcg 4-29 10-06 tablet by ity of tablet 00:00: 00:00 [facility] 00 :00 SEE-INSTRU Medical CTIONS. Branch Take one tab the night before and one tab the morning of procedure miSOPROStoL 2021- No [id number] 200ug Take 1 [facility] 200 mcg 4-29 10-06 tablet by ity of tablet 00:00: 00:00 mouth [place] 00 :00 SEE-INSTRU Medical CTIONS. Branch Take one tab the night before and one tab the morning of procedure miSOPROStoL 2021- No [id number] 200ug Take 1 [facility] 200 mcg 4-29 10-06 tablet by ity of tablet 00:00: 00:00 mouth [place] 00 :00 SEE-INSTRU Medical CTIONS. Branch Take one tab the night before and one tab the morning of procedure miSOPROStoL 2021- No [id number] 200ug Take 1 [facility] 200 mcg 4-29 10-06 tablet by ity of tablet 00:00: 00:00 [facility] 00 :00 SEE-INSTRU Medical CTIONS. Branch Take one tab the night before and one tab the morning of procedure miSOPROStoL 2021- No [id number] 200ug Take 1 [facility] 200 mcg 4-29 10-06 tablet by ity of tablet 00:00: 00:00 [facility] 00 :00 SEE-INSTRU Medical CTIONS. Branch Take one tab the night before and one tab the morning of procedure miSOPROStoL 2021- No [id number] 200ug Take 1 [facility] 200 mcg 4-29 10-06 tablet by ity of tablet 00:00: 00:00 [facility] 00 :00 SEE-INSTRU Medical CTIONS. Branch Take one tab the night before and one tab the morning of procedure miSOPROStoL 2021- No [id number] 200ug Take 1 [facility] 200 mcg 4-29 10-06 tablet by ity of tablet 00:00: 00:00 [facility] 00 :00 SEE-INSTRU Medical CTIONS. Branch Take one tab the night before and one tab the morning of procedure Immunizations Ordered Immunization Filled Immunization Date Status Commen ts Source Name Name SARS-COV-2 COVID-2022-03-17 Completed [facility] of MIKE-SUCROSE VACCINE 00:00:00 [facility] 12 YRS+, BIVALENT Michael 0.3ML, IM, (PFIZER ARITA TOP BOOSTER) SARS-COV-2 COVID-19 2022-03-17 Completed Unive rsity of MIKE-SUCROSE VACCINE 00:00:00 [facility] 12 YRS+, BIVALENT Branch 0.3ML, IM, (PFIZER ARITA TOP BOOSTER) SARS-COV-2 COVID-19 2022-03-17 Completed Unive rsity of MIKE-SUCROSE VACCINE 00:00:00 [facility] 12 YRS+, BIVALENT Branch 0.3ML, IM, (PFIZER ARITA TOP BOOSTER) SARS-COV-2 COVID-19 2022-03-17 Completed Unive rsity of MIKE-SUCROSE VACCINE 00:00:00 [facility] 12 YRS+, BIVALENT Branch 0.3ML, IM, (PFIZER ARITA TOP BOOSTER) SARS-COV-2 COVID-19 2022-03-17 Completed Unive rsity of MIKE-SUCROSE VACCINE 00:00:00 [facility] 12 YRS+, BIVALENT Branch 0.3ML, IM, (PFIZER ARITA TOP BOOSTER) SARS-COV-2 COVID-19 2022-03-17 Completed Unive rsity of MIKE-SUCROSE VACCINE 00:00:00 [facility] 12 YRS+, BIVALENT Branch 0.3ML, IM, (PFIZER ARITA TOP BOOSTER) SARS-COV-2 COVID-19 2022-03-17 Completed Unive rsity of MIKE-SUCROSE VACCINE 00:00:00 [facility] 12 YRS+, BIVALENT Branch 0.3ML, IM, (PFIZER ARITA TOP BOOSTER) SARS-COV-2 COVID-19 2022-03-17 Completed Unive rsity of MIKE-SUCROSE VACCINE 00:00:00 [facility] 12 YRS+, BIVALENT Branch 0.3ML, IM, (PFIZER ARITA TOP BOOSTER) SARS-COV-2 COVID-19 2022-03-17 Completed Unive rsity of MIKE-SUCROSE VACCINE 00:00:00 [facility] 12 YRS+, BIVALENT Branch 0.3ML, IM, (PFIZER ARITA TOP BOOSTER) SARS-COV-2 COVID-19 2022-03-17 Completed Unive rsity of MIKE-SUCROSE VACCINE 00:00:00 [facility] 12 YRS+, BIVALENT Branch 0.3ML, IM, (PFIZER ARITA TOP BOOSTER) SARS-COV-2 COVID-19 2022-03-17 Completed Unive rsity of MIKE-SUCROSE VACCINE 00:00:00 [facility] 12 YRS+, BIVALENT Branch 0.3ML, IM, (PFIZER ARITA TOP BOOSTER) SARS-COV-2 COVID-19 2022-03-17 Completed Unive rsity of MIKE-SUCROSE VACCINE 00:00:00 [facility] 12 YRS+, BIVALENT Branch 0.3ML, IM, (PFIZER ARITA TOP BOOSTER) SARS-COV-2 COVID-19 2022-03-17 Completed Unive rsity of MIKE-SUCROSE VACCINE 00:00:00 [facility] 12 YRS+, BIVALENT Branch 0.3ML, IM, (PFIZER ARITA TOP BOOSTER) SARS-COV-2 COVID-19 2022-03-17 Completed Unive rsity of MIKE-SUCROSE VACCINE 00:00:00 [facility] 12 YRS+, BIVALENT Branch 0.3ML, IM, (PFIZER ARITA TOP BOOSTER) SARS-COV-2 COVID-19 2022-03-17 Completed Unive rsity of MIKE-SUCROSE VACCINE 00:00:00 [facility] 12 YRS+, BIVALENT Branch 0.3ML, IM, (PFIZER ARITA TOP BOOSTER) SARS-COV-2 COVID-19 2022-03-17 Completed Unive rsity of MIKE-SUCROSE VACCINE 00:00:00 [facility] 12 YRS+, BIVALENT Branch 0.3ML, IM, (PFIZER ARITA TOP BOOSTER) SARS-COV-2 COVID-19 2022-03-17 Completed Unive rsity of MIKE-SUCROSE VACCINE 00:00:00 [facility] 12 YRS+, BIVALENT Branch 0.3ML, IM, (PFIZER ARITA TOP BOOSTER) SARS-COV-2 COVID-19 2022-03-17 Completed Unive rsity of MIKE-SUCROSE VACCINE 00:00:00 [facility] 12 YRS+, BIVALENT Branch 0.3ML, IM, (PFIZER ARITA TOP BOOSTER) SARS-COV-2 COVID-19 2022-03-17 Completed Unive rsity of MIKE-SUCROSE VACCINE 00:00:00 [facility] 12 YRS+, BIVALENT Branch 0.3ML, IM, (PFIZER ARITA TOP BOOSTER) SARS-COV-2 COVID-19 2022-03-17 Completed Unive rsity of MIKE-SUCROSE VACCINE 00:00:00 [facility] 12 YRS+, BIVALENT Branch 0.3ML, IM, (PFIZER ARITA TOP BOOSTER) SARS-COV-2 COVID-19 2022-03-17 Completed Unive rsity of MIKE-SUCROSE VACCINE 00:00:00 [facility] 12 YRS+, BIVALENT Branch 0.3ML, IM, (PFIZER ARITA TOP BOOSTER) SARS-COV-2 COVID-19 2022-03-17 Completed Unive rsity of MIKE-SUCROSE VACCINE 00:00:00 [facility] 12 YRS+, BIVALENT Branch 0.3ML, IM, (PFIZER ARITA TOP BOOSTER) SARS-COV-2 COVID-19 2022-03-17 Completed Unive rsity of MIKE-SUCROSE VACCINE 00:00:00 [facility] 12 YRS+, BIVALENT Branch 0.3ML, IM, (PFIZER ARITA TOP BOOSTER) SARS-COV-2 COVID-19 2022-03-17 Completed Unive rsity of MIKE-SUCROSE VACCINE 00:00:00 [facility] 12 YRS+, BIVALENT Branch 0.3ML, IM, (PFIZER ARITA TOP BOOSTER) SARS-COV-2 COVID-19 2022-03-17 Completed Unive rsity of MIKE-SUCROSE VACCINE 00:00:00 [facility] 12 YRS+, BIVALENT Branch 0.3ML, IM, (PFIZER ARITA TOP BOOSTER) SARS-COV-2 COVID-19 2022-03-17 Completed Unive rsity of MIKE-SUCROSE VACCINE 00:00:00 [facility] 12 YRS+, BIVALENT Branch 0.3ML, IM, (PFIZER ARITA TOP BOOSTER) SARS-COV-2 COVID-19 2022-03-17 Completed Unive rsity of MIKE-SUCROSE VACCINE 00:00:00 [facility] 12 YRS+, BIVALENT Branch 0.3ML, IM, (PFIZER ARITA TOP BOOSTER) SARS-COV-2 COVID-19 2022-03-17 Completed Unive rsity of MIKE-SUCROSE VACCINE 00:00:00 [facility] 12 YRS+, BIVALENT Branch 0.3ML, IM, (PFIZER ARITA TOP BOOSTER) SARS-COV-2 COVID-19 2022-03-17 Completed Unive rsity of MIKE-SUCROSE VACCINE 00:00:00 [facility] 12 YRS+, BIVALENT Branch 0.3ML, IM, (PFIZER ARITA TOP BOOSTER) SARS-COV-2 COVID-19 2022-03-17 Completed Unive rsity of MIKE-SUCROSE VACCINE 00:00:00 [facility] 12 YRS+, BIVALENT Branch 0.3ML, IM, (PFIZER ARITA TOP BOOSTER) SARS-COV-2 COVID-19 2022-03-17 Completed Unive rsity of MIKE-SUCROSE VACCINE 00:00:00 [facility] 12 YRS+, BIVALENT Branch 0.3ML, IM, (PFIZER ARITA TOP BOOSTER) SARS-COV-2 COVID-19 2022-03-17 Completed Unive rsity of MIKE-SUCROSE VACCINE 00:00:00 [facility] 12 YRS+, BIVALENT Branch 0.3ML, IM, (PFIZER ARITA TOP BOOSTER) SARS-COV-2 COVID-19 2022-03-17 Completed Unive rsity of MIKE-SUCROSE VACCINE 00:00:00 [facility] 12 YRS+, BIVALENT Branch 0.3ML, IM, (PFIZER ARITA TOP BOOSTER) SARS-COV-2 COVID-19 2022-03-17 Completed Unive rsity of MIKE-SUCROSE VACCINE 00:00:00 [facility] 12 YRS+, BIVALENT Branch 0.3ML, IM, (PFIZER ARITA TOP BOOSTER) SARS-COV-2 COVID-19 2022-03-17 Completed Unive rsity of MIKE-SUCROSE VACCINE 00:00:00 [facility] 12 YRS+, BIVALENT Branch 0.3ML, IM, (PFIZER ARITA TOP BOOSTER) SARS-COV-2 COVID-19 2022-03-17 Completed Unive rsity of MIKE-SUCROSE VACCINE 00:00:00 [facility] 12 YRS+, BIVALENT Branch 0.3ML, IM, (PFIZER ARITA TOP BOOSTER) SARS-COV-2 COVID-19 2022-03-17 Completed Unive rsity of MIKE-SUCROSE VACCINE 00:00:00 [facility] 12 YRS+, BIVALENT Branch 0.3ML, IM, (PFIZER ARITA TOP BOOSTER) SARS-COV-2 COVID-19 2021-06-24 Completed Unive rsity of PFIZER VACCINE 00:00:00 [facility] Branch SARS-COV-2 COVID-19 2021-06-24 Completed Unive rsity of PFIZER VACCINE 00:00:00 [facility] Branch SARS-COV-2 COVID-19 2021-06-24 Completed Unive rsity of PFIZER VACCINE 00:00:00 [facility] Branch SARS-COV-2 COVID-19 2021-06-24 Completed Unive rsity of PFIZER VACCINE 00:00:00 [facility] Branch SARS-COV-2 COVID-19 2021-06-24 Completed Unive rsity of PFIZER VACCINE 00:00:00 [facility] Branch SARS-COV-2 COVID-19 2021-06-24 Completed Unive rsity of PFIZER VACCINE 00:00:00 [facility] Branch SARS-COV-2 COVID-19 2021-06-24 Completed Unive rsity of PFIZER VACCINE 00:00:00 [facility] Branch SARS-COV-2 COVID-19 2021-06-24 Completed Unive rsity of PFIZER VACCINE 00:00:00 [facility] Branch SARS-COV-2 COVID-19 2021-06-24 Completed Unive rsity of PFIZER VACCINE 00:00:00 [facility] Branch SARS-COV-2 COVID-19 2021-06-24 Completed Unive rsity of PFIZER VACCINE 00:00:00 [facility] Branch SARS-COV-2 COVID-19 2021-06-24 Completed Unive rsity of PFIZER VACCINE 00:00:00 [facility] Branch SARS-COV-2 COVID-19 2021-06-24 Completed Unive rsity of PFIZER VACCINE 00:00:00 [facility] Branch SARS-COV-2 COVID-19 2021-06-24 Completed Unive rsity of PFIZER VACCINE 00:00:00 [facility] Branch SARS-COV-2 COVID-19 2021-06-24 Completed Unive rsity of PFIZER VACCINE 00:00:00 [facility] SARS-COV-2 COVID-19 2021-06-24 Completed Unive rsity of PFIZER VACCINE 00:00:00 [facility] Branch SARS-COV-2 COVID-19 2021-06-24 Completed Unive rsity of PFIZER VACCINE 00:00:00 [facility] Branch SARS-COV-2 COVID-19 2021-06-24 Completed Unive rsity of PFIZER VACCINE 00:00:00 [facility] Branch SARS-COV-2 COVID-19 2021-06-24 Completed Unive rsity of PFIZER VACCINE 00:00:00 [facility] SARS-COV-2 COVID-19 2021-06-24 Completed Unive rsity of PFIZER VACCINE 00:00:00 [facility] Branch SARS-COV-2 COVID-19 2021-06-24 Completed Unive rsity of PFIZER VACCINE 00:00:00 [facility] Branch SARS-COV-2 COVID-19 2021-06-24 Completed Unive rsity of PFIZER VACCINE 00:00:00 [facility] Branch SARS-COV-2 COVID-19 2021-06-24 Completed Unive rsity of PFIZER VACCINE 00:00:00 [facility] Branch SARS-COV-2 COVID-19 2021-06-24 Completed Unive rsity of PFIZER VACCINE 00:00:00 [facility] Branch SARS-COV-2 COVID-19 2021-06-24 Completed Unive rsity of PFIZER VACCINE 00:00:00 [facility] Branch SARS-COV-2 COVID-19 2021-06-24 Completed Unive rsity of PFIZER VACCINE 00:00:00 [facility] Branch SARS-COV-2 COVID-19 2021-06-24 Completed Unive rsity of PFIZER VACCINE 00:00:00 [facility] Branch SARS-COV-2 COVID-19 2021-06-24 Completed Unive rsity of PFIZER VACCINE 00:00:00 [facility] Branch SARS-COV-2 COVID-19 2021-06-24 Completed Unive rsity of PFIZER VACCINE 00:00:00 [facility] Branch SARS-COV-2 COVID-19 2021-06-24 Completed Unive rsity of PFIZER VACCINE 00:00:00 [facility] Branch SARS-COV-2 COVID-19 2021-06-24 Completed Unive rsity of PFIZER VACCINE 00:00:00 [facility] Branch SARS-COV-2 COVID-19 2021-06-24 Completed Unive rsity of PFIZER VACCINE 00:00:00 [facility] Branch SARS-COV-2 COVID-19 2021-06-24 Completed Unive rsity of PFIZER VACCINE 00:00:00 [facility] Branch SARS-COV-2 COVID-19 2021-06-24 Completed Unive rsity of PFIZER VACCINE 00:00:00 [facility] Branch SARS-COV-2 COVID-19 2021-06-24 Completed Unive rsity of PFIZER VACCINE 00:00:00 [facility] Branch SARS-COV-2 COVID-19 2021-06-24 Completed Unive rsity of PFIZER VACCINE 00:00:00 [facility] Branch SARS-COV-2 COVID-19 2021-06-24 Completed Unive rsity of PFIZER VACCINE 00:00:00 [facility] SARS-COV-2 COVID-19 2021-06-24 Completed Unive rsity of PFIZER VACCINE 00:00:00 [facility] SARS-COV-2 COVID-19 2021-06-24 Completed Unive rsity of PFIZER VACCINE 00:00:00 [facility] SARS-COV-2 COVID-19 2020-11-21 Completed Unive rsity of PFIZER VACCINE 00:00:00 [facility] Branch SARS-COV-2 COVID-19 2020-11-21 Completed Unive rsity of PFIZER VACCINE 00:00:00 [facility] SARS-COV-2 COVID-19 2020-11-21 Completed Unive rsity of PFIZER VACCINE 00:00:00 [facility] SARS-COV-2 COVID-19 2020-11-21 Completed Unive rsity of PFIZER VACCINE 00:00:00 [facility] SARS-COV-2 COVID-19 2020-11-21 Completed Unive rsity of PFIZER VACCINE 00:00:00 [facility] SARS-COV-2 COVID-19 2020-11-21 Completed Unive rsity of PFIZER VACCINE 00:00:00 [facility] SARS-COV-2 COVID-19 2020-11-21 Completed Unive rsity of PFIZER VACCINE 00:00:00 [facility] SARS-COV-2 COVID-19 2020-11-21 Completed Unive rsity of PFIZER VACCINE 00:00:00 [facility] SARS-COV-2 COVID-19 2020-11-21 Completed Unive rsity of PFIZER VACCINE 00:00:00 [facility] SARS-COV-2 COVID-19 2020-11-21 Completed Unive rsity of PFIZER VACCINE 00:00:00 [facility] SARS-COV-2 COVID-19 2020-11-21 Completed Unive rsity of PFIZER VACCINE 00:00:00 [facility] SARS-COV-2 COVID-19 2020-11-21 Completed Unive rsity of PFIZER VACCINE 00:00:00 [facility] SARS-COV-2 COVID-19 2020-11-21 Completed Unive rsity of PFIZER VACCINE 00:00:00 [place] [facility] SARS-COV-2 COVID-19 2020-11-21 Completed Unive rsity of PFIZER VACCINE 00:00:00 [facility] Branch SARS-COV-2 COVID-19 2020-11-21 Completed Unive rsity of PFIZER VACCINE 00:00:00 [facility] Branch SARS-COV-2 COVID-19 2020-11-21 Completed Unive rsity of PFIZER VACCINE 00:00:00 [facility] Branch SARS-COV-2 COVID-19 2020-11-21 Completed Unive rsity of PFIZER VACCINE 00:00:00 [facility] Branch SARS-COV-2 COVID-19 2020-11-21 Completed Unive rsity of PFIZER VACCINE 00:00:00 [facility] Branch SARS-COV-2 COVID-19 2020-11-21 Completed Unive rsity of PFIZER VACCINE 00:00:00 [facility] Branch SARS-COV-2 COVID-19 2020-11-21 Completed Unive rsity of PFIZER VACCINE 00:00:00 [facility] Branch SARS-COV-2 COVID-19 2020-11-21 Completed Unive rsity of PFIZER VACCINE 00:00:00 [facility] Branch SARS-COV-2 COVID-19 2020-11-21 Completed Unive rsity of PFIZER VACCINE 00:00:00 [facility] Branch SARS-COV-2 COVID-19 2020-11-21 Completed Unive rsity of PFIZER VACCINE 00:00:00 [facility] Branch SARS-COV-2 COVID-19 2020-11-21 Completed Unive rsity of PFIZER VACCINE 00:00:00 [facility] SARS-COV-2 COVID-19 2020-11-21 Completed Unive rsity of PFIZER VACCINE 00:00:00 [facility] SARS-COV-2 COVID-19 2020-11-21 Completed Unive rsity of PFIZER VACCINE 00:00:00 [facility] SARS-COV-2 COVID-19 2020-11-21 Completed Unive rsity of PFIZER VACCINE 00:00:00 [facility] SARS-COV-2 COVID-19 2020-11-21 Completed Unive rsity of PFIZER VACCINE 00:00:00 [facility] SARS-COV-2 COVID-19 2020-11-21 Completed Unive rsity of PFIZER VACCINE 00:00:00 [facility] SARS-COV-2 COVID-19 2020-11-21 Completed Unive rsity of PFIZER VACCINE 00:00:00 [facility] SARS-COV-2 COVID-19 2020-11-21 Completed Unive rsity of PFIZER VACCINE 00:00:00 [facility] SARS-COV-2 COVID-19 2020-11-21 Completed Unive rsity of PFIZER VACCINE 00:00:00 [facility] SARS-COV-2 COVID-19 2020-11-21 Completed Unive rsity of PFIZER VACCINE 00:00:00 [facility] SARS-COV-2 COVID-19 2020-11-21 Completed Unive rsity of PFIZER VACCINE 00:00:00 [facility] SARS-COV-2 COVID-19 2020-11-21 Completed Unive rsity of PFIZER VACCINE 00:00:00 [facility] SARS-COV-2 COVID-19 2020-11-21 Completed Unive rsity of PFIZER VACCINE 00:00:00 [facility] SARS-COV-2 COVID-19 2020-11-21 Completed Unive rsity of PFIZER VACCINE 00:00:00 [facility] SARS-COV-2 COVID-19 2020-11-21 Completed Unive rsity of PFIZER VACCINE 00:00:00 [facility] SARS-COV-2 COVID-19 2020-10-24 Completed Unive rsity of PFIZER VACCINE 00:00:00 [facility] SARS-COV-2 COVID-19 2020-10-24 Completed Unive rsity of PFIZER VACCINE 00:00:00 [facility] SARS-COV-2 COVID-19 2020-10-24 Completed Unive rsity of PFIZER VACCINE 00:00:00 [facility] SARS-COV-2 COVID-19 2020-10-24 Completed Unive rsity of PFIZER VACCINE 00:00:00 [facility] SARS-COV-2 COVID-19 2020-10-24 Completed Unive rsity of PFIZER VACCINE 00:00:00 [facility] SARS-COV-2 COVID-19 2020-10-24 Completed Unive rsity of PFIZER VACCINE 00:00:00 [facility] SARS-COV-2 COVID-19 2020-10-24 Completed Unive rsity of PFIZER VACCINE 00:00:00 [facility] SARS-COV-2 COVID-19 2020-10-24 Completed Unive rsity of PFIZER VACCINE 00:00:00 [facility] SARS-COV-2 COVID-19 2020-10-24 Completed Unive rsity of PFIZER VACCINE 00:00:00 [facility] SARS-COV-2 COVID-19 2020-10-24 Completed Unive rsity of PFIZER VACCINE 00:00:00 [facility] SARS-COV-2 COVID-19 2020-10-24 Completed Unive rsity of PFIZER VACCINE 00:00:00 [facility] SARS-COV-2 COVID-19 2020-10-24 Completed Unive rsity of PFIZER VACCINE 00:00:00 [facility] SARS-COV-2 COVID-19 2020-10-24 Completed Unive rsity of PFIZER VACCINE 00:00:00 [facility] SARS-COV-2 COVID-19 2020-10-24 Completed Unive rsity of PFIZER VACCINE 00:00:00 [facility] SARS-COV-2 COVID-19 2020-10-24 Completed Unive rsity of PFIZER VACCINE 00:00:00 [facility] SARS-COV-2 COVID-19 2020-10-24 Completed Unive rsity of PFIZER VACCINE 00:00:00 [facility] SARS-COV-2 COVID-19 2020-10-24 Completed Unive rsity of PFIZER VACCINE 00:00:00 [facility] [facility] SARS-COV-2 COVID-19 2020-10-24 Completed [facility] of PFIZER VACCINE 00:00:00 [facility] SARS-COV-2 COVID-19 2020-10-24 Completed [facility] of PFIZER VACCINE 00:00:00 [facility] SARS-COV-2 COVID-19 2020-10-24 Completed [facility] of PFIZER VACCINE 00:00:00 [facility] SARS-COV-2 COVID-19 2020-10-24 Completed [facility] of PFIZER VACCINE 00:00:00 [facility] SARS-COV-2 COVID-19 2020-10-24 Completed [facility] of PFIZER VACCINE 00:00:00 [facility] SARS-COV-2 COVID-19 2020-10-24 Completed [facility] of PFIZER VACCINE 00:00:00 [facility] SARS-COV-2 COVID-19 2020-10-24 Completed [facility] of PFIZER VACCINE 00:00:00 [facility] SARS-COV-2 COVID-19 2020-10-24 Completed [facility] of PFIZER VACCINE 00:00:00 [facility] SARS-COV-2 COVID-19 2020-10-24 Completed [facility] of PFIZER VACCINE 00:00:00 [facility] SARS-COV-2 COVID-19 2020-10-24 Completed [facility] of PFIZER VACCINE 00:00:00 [facility] SARS-COV-2 COVID-19 2020-10-24 Completed [facility] of PFIZER VACCINE 00:00:00 [facility] SARS-COV-2 COVID-19 2020-10-24 Completed [facility] of PFIZER VACCINE 00:00:00 [facility] SARS-COV-2 COVID-19 2020-10-24 Completed [facility] of PFIZER VACCINE 00:00:00 [facility] SARS-COV-2 COVID-19 2020-10-24 Completed [facility] of PFIZER VACCINE 00:00:00 [facility] SARS-COV-2 COVID-19 2020-10-24 Completed [facility] of PFIZER VACCINE 00:00:00 [facility] SARS-COV-2 COVID-19 2020-10-24 Completed [facility] of PFIZER VACCINE 00:00:00 [facility] SARS-COV-2 COVID-19 2020-10-24 Completed [facility] of PFIZER VACCINE 00:00:00 [facility] SARS-COV-2 COVID-19 2020-10-24 Completed [facility] of PFIZER VACCINE 00:00:00 [facility] SARS-COV-2 COVID-19 2020-10-24 Completed [facility] of PFIZER VACCINE 00:00:00 [facility] SARS-COV-2 COVID-19 2020-10-24 Completed [facility] of PFIZER VACCINE 00:00:00 [facility] SARS-COV-2 COVID-19 2020-10-24 Completed [facility] ity [facility] PFIZER VACCINE 00:00:00 [facility] Influenza Virus 2020-07-08 Completed Universit y [...] of Vaccine Quad .5 mL IM 00:00:00 [facility] Influenza Virus [...] OMV 2018-10-31 Completed [facility] ersity of 00:00:00 [facility] Meningococcal B, OMV 2018-10-31 Completed [facility] ers[facility] of 00:00:00 [facility] Meningococcal B, OMV 2018-10-31 Completed [facility] ers[facility] of 00:00:00 [facility] Meningococcal B, OMV 2018-10-31 Completed [facility] ers[facility] of 00:00:00 [facility] Meningococcal B, OMV 2018-10-31 Completed [facility] ers[facility] of 00:00:00 [facility] Meningococcal B, OMV 2018-10-31 Completed [facility] ers[facility] of 00:00:00 [facility] Meningococcal B, OMV 2018-10-31 Completed [facility] ers[facility] of 00:00:00 [facility] Meningococcal B, OMV 2018-10-31 Completed [facility] ers[facility] of 00:00:00 [facility] Meningococcal B, OMV 2018-10-31 Completed [facility] ers[facility] of 00:00:00 [facility] Meningococcal B, OMV 2018-10-31 Completed [facility] ers[facility] of 00:00:00 [facility] Meningococcal B, OMV 2018-10-31 Completed [facility] ers[facility] of 00:00:00 [facility] Meningococcal B, OMV 2018-10-31 Completed [facility] ers[facility] of 00:00:00 [facility] Meningococcal B, OMV 2018-10-31 Completed [facility] ers[facility] of 00:00:00 [facility] Meningococcal B, OMV 2018-10-31 Completed [facility] ers[facility] of 00:00:00 [facility] Meningococcal B, OMV 2018-10-31 Completed [facility] ers[facility] of 00:00:00 [facility] Meningococcal B, OMV 2018-10-31 Completed [facility] ers[facility] of 00:00:00 [facility] Meningococcal B, OMV 2018-10-31 Completed [facility] ers[facility] of 00:00:00 [facility] Meningococcal B, OMV 2018-10-31 Completed [facility] ers[facility] of 00:00:00 [facility] Meningococcal B, OMV 2018-10-31 Completed [facility] ers[facility] of 00:00:00 [facility] Meningococcal B, OMV 2018-10-31 Completed [facility] of 00:00:00 [facility] Meningococcal B, OMV 2018-10-31 Completed [facility] ers[facility] of 00:00:00 [facility] Meningococcal B, OMV 2018-10-31 Completed [facility] ers[facility] of 00:00:00 [facility] Meningococcal B, OMV 2018-10-31 Completed [facility] of 00:00:00 [facility] Meningococcal B, OMV 2018-10-31 Completed [facility] of 00:00:00 [facility] Meningococcal B, OMV 2018-10-31 Completed [facility] of 00:00:00 [facility] Meningococcal B, OMV 2018-10-31 Completed [facility] ers[facility] of 00:00:00 [facility] Meningococcal B, OMV 2018-10-31 Completed [facility] of 00:00:00 [facility] Meningococcal B, OMV 2018-10-31 Completed [facility] of 00:00:00 [facility] Meningococcal B, OMV 2018-10-31 Completed [facility] of 00:00:00 [facility] Meningococcal B, OMV 2018-10-31 Completed [facility] ers[facility] of 00:00:00 [facility] Meningococcal B, OMV 2018-10-31 Completed [facility] of 00:00:00 [facility] Meningococcal B, OMV 2018-10-31 Completed [facility] ers[facility] of 00:00:00 [facility] Meningococcal B, OMV 2018-10-31 Completed [facility] ers[facility] of 00:00:00 [facility] Meningococcal B, OMV 2018-10-31 Completed [facility] ersity of 00:00:00 [facility] Meningococcal B, OMV 2018-10-31 Completed Univ ersity of 00:00:00 [facility] Meningococcal B, OMV 2018-10-31 Completed [facility] ers[facility] of 00:00:00 [facility] Meningococcal B, OMV 2018-10-31 Completed [facility] ersity of 00:00:00 [facility] Meningococcal B, OMV 2018-10-31 Completed [facility] ersity of 00:00:00 [facility] Influenza Virus 2018-08-29 Completed [facility]it y [facility] Vaccine Quad .5 mL IM 00:00:00 [facility] Meningococcal B, OMV 2018-08-29 Completed Univ ersity of 00:00:00 [facility] Influenza Virus 2018-08-29 Completed [facility] Vaccine Quad .5 mL IM 00:00:00 [facility] Meningococcal B, OMV 2018-08-29 Completed [facility] ers[facility] of 00:00:00 [facility] Influenza Virus 2018-08-29 Completed [facility] Vaccine Quad .5 mL IM 00:00:00 [facility] Meningococcal B, OMV 2018-08-29 Completed [facility] ers[facility] of 00:00:00 [facility] Influenza Virus 2018-08-29 Completed [facility] Vaccine Quad .5 mL IM 00:00:00 [facility] Meningococcal B, OMV 2018-08-29 Completed [facility] ers[facility] of 00:00:00 [facility] Influenza Virus 2018-08-29 Completed [facility] Vaccine Quad .5 mL IM 00:00:00 [facility] Meningococcal B, OMV 2018-08-29 Completed [facility] ers[facility] of 00:00:00 [facility] Influenza Virus 2018-08-29 Completed [facility] Vaccine Quad .5 mL IM 00:00:00 [facility] Meningococcal B, OMV 2018-08-29 Completed [facility] ers[facility] of 00:00:00 [facility] Influenza Virus 2018-08-29 Completed [facility] Vaccine Quad .5 mL IM 00:00:00 [facility] Meningococcal B, OMV 2018-08-29 Completed [facility] ers[facility] of 00:00:00 [facility] Influenza Virus 2018-08-29 Completed [facility] Vaccine Quad .5 mL IM 00:00:00 [facility] Meningococcal B, OMV 2018-08-29 Completed [facility] ers[facility] of 00:00:00 [facility] Influenza Virus 2018-08-29 Completed [facility] of Vaccine Quad .5 mL IM 00:00:00 [facility] Meningococcal B, OMV 2018-08-29 Completed [facility] ers[facility] of 00:00:00 [facility] Influenza Virus 2018-08-29 Completed [facility] of Vaccine Quad .5 mL IM 00:00:00 [facility] Meningococcal B, OMV 2018-08-29 Completed [facility] ers[facility] of 00:00:00 [facility] Influenza Virus 2018-08-29 Completed [facility] of Vaccine Quad .5 mL IM 00:00:00 [facility] Meningococcal B, OMV 2018-08-29 Completed [facility] ers[facility] of 00:00:00 [facility] Influenza Virus 2018-08-29 Completed [facility] of Vaccine Quad .5 mL IM 00:00:00 [facility] Meningococcal B, OMV 2018-08-29 Completed [facility] ers[facility] of 00:00:00 [facility] Influenza Virus 2018-08-29 Completed [facility] of Vaccine Quad .5 mL IM 00:00:00 [facility] Meningococcal B, OMV 2018-08-29 Completed [facility] ers[facility] of 00:00:00 [facility] Influenza Virus 2018-08-29 Completed [facility] of Vaccine Quad .5 mL IM 00:00:00 [facility] Meningococcal B, OMV 2018-08-29 Completed [facility] ers[facility] of 00:00:00 [facility] Influenza Virus 2018-08-29 Completed [facility] of Vaccine Quad .5 mL IM 00:00:00 [facility] Meningococcal B, OMV 2018-08-29 Completed [facility] ers[facility] of 00:00:00 [facility] Influenza Virus 2018-08-29 Completed [facility] of Vaccine Quad .5 mL IM 00:00:00 [facility] Meningococcal B, OMV 2018-08-29 Completed [facility] ers[facility] of 00:00:00 [facility] Influenza Virus 2018-08-29 Completed [facility] of Vaccine Quad .5 mL IM 00:00:00 [facility] Meningococcal B, OMV 2018-08-29 Completed [facility] ers[facility] of 00:00:00 [facility] Influenza Virus 2018-08-29 Completed [facility] of Vaccine Quad .5 mL IM 00:00:00 [facility] Meningococcal B, OMV 2018-08-29 Completed [facility] ers[facility] of 00:00:00 [facility] Influenza Virus 2018-08-29 Completed [facility] of Vaccine Quad .5 mL IM 00:00:00 [facility] Meningococcal B, OMV 2018-08-29 Completed [facility] ers[facility] of 00:00:00 [facility] Influenza Virus 2018-08-29 Completed [facility] of Vaccine Quad .5 mL IM 00:00:00 [facility] Meningococcal B, OMV 2018-08-29 Completed [facility] ers[facility] of 00:00:00 [facility] Influenza Virus 2018-08-29 Completed [facility] of Vaccine Quad .5 mL IM 00:00:00 [facility] Meningococcal B, OMV 2018-08-29 Completed [facility] ers[facility] of 00:00:00 [facility] Influenza Virus 2018-08-29 Completed [facility] of Vaccine Quad .5 mL IM 00:00:00 [facility] Meningococcal B, OMV 2018-08-29 Completed [facility] ers[facility] of 00:00:00 [facility] Influenza Virus 2018-08-29 Completed [facility] of Vaccine Quad .5 mL IM 00:00:00 [facility] Meningococcal B, OMV 2018-08-29 Completed [facility] ers[facility] of 00:00:00 [facility] Influenza Virus 2018-08-29 Completed [facility] of Vaccine Quad .5 mL IM 00:00:00 [facility] Meningococcal B, OMV 2018-08-29 Completed [facility] ers[facility] of 00:00:00 [facility] Influenza Virus 2018-08-29 Completed [facility] of Vaccine Quad .5 mL IM 00:00:00 [facility] Meningococcal B, OMV 2018-08-29 Completed [facility] ers[facility] of 00:00:00 [facility] Influenza Virus 2018-08-29 Completed [facility] of Vaccine Quad .5 mL IM 00:00:00 [facility] Meningococcal B, OMV 2018-08-29 Completed [facility] ers[facility] of 00:00:00 [facility] Influenza Virus 2018-08-29 Completed [facility] of Vaccine Quad .5 mL IM 00:00:00 [facility] Meningococcal B, OMV 2018-08-29 Completed [facility] ers[facility] of 00:00:00 [facility] Influenza Virus 2018-08-29 Completed [facility] of Vaccine Quad .5 mL IM 00:00:00 [facility] Meningococcal B, OMV 2018-08-29 Completed [facility] ers[facility] of 00:00:00 [facility] Influenza Virus 2018-08-29 Completed [facility] of Vaccine Quad .5 mL IM 00:00:00 [facility] Meningococcal B, OMV 2018-08-29 Completed [facility] ers[facility] of 00:00:00 [facility] Influenza Virus 2018-08-29 Completed [facility] of Vaccine Quad .5 mL IM 00:00:00 [facility] Meningococcal B, OMV 2018-08-29 Completed [facility] ers[facility] of 00:00:00 [facility] Influenza Virus 2018-08-29 Completed [facility] of Vaccine Quad .5 mL IM 00:00:00 [facility] Meningococcal B, OMV 2018-08-29 Completed [facility] ers[facility] of 00:00:00 [facility] Influenza Virus 2018-08-29 Completed [facility] of Vaccine Quad .5 mL IM 00:00:00 [facility] Meningococcal B, OMV 2018-08-29 Completed [facility] ers[facility] of 00:00:00 [facility] Influenza Virus 2018-08-29 Completed [facility] of Vaccine Quad .5 mL IM 00:00:00 [facility] Meningococcal B, OMV 2018-08-29 Completed [facility] ers[facility] of 00:00:00 [facility] Influenza Virus 2018-08-29 Completed [facility] of Vaccine Quad .5 mL IM 00:00:00 [facility] Meningococcal B, OMV 2018-08-29 Completed [facility] ers[facility] of 00:00:00 [facility] Influenza Virus 2018-08-29 Completed [facility] of Vaccine Quad .5 mL IM 00:00:00 [facility] Meningococcal B, OMV 2018-08-29 Completed [facility] ers[facility] of 00:00:00 [facility] Influenza Virus 2018-08-29 Completed [facility] of Vaccine Quad .5 mL IM 00:00:00 [facility] Meningococcal B, OMV 2018-08-29 Completed [facility] of 00:00:00 [facility] Influenza Virus 2018-08-29 Completed [facility] of Vaccine Quad .5 mL IM 00:00:00 [facility] Meningococcal B, OMV 2018-08-29 Completed [facility] ers[facility] of 00:00:00 [facility] Influenza Virus 2018-08-29 Completed [facility] of Vaccine Quad .5 mL IM 00:00:00 [facility] Meningococcal B, OMV 2018-08-29 Completed [facility] ersity of 00:00:00 [facility] Meningococcal 2018-01-17 Completed [facility] Polysaccharide 00:00:00 [facility] (groups A, C, Y and Branc h W-135) conjugate vaccine (MCV4P) Meningococcal 2018-01-17 Completed [facility] Polysaccharide 00:00:00 [facility] (groups A, C, Y and Branc h W-135) conjugate vaccine (MCV4P) Meningococcal 2018-01-17 Completed [facility] Polysaccharide 00:00:00 [facility] (groups A, C, Y and Branc h W-135) conjugate vaccine (MCV4P) Meningococcal 2018-01-17 Completed [facility] Polysaccharide 00:00:00 [facility] (groups A, C, Y and Branc h W-135) conjugate vaccine (MCV4P) Meningococcal 2018-01-17 Completed [facility] Polysaccharide 00:00:00 [facility] (groups A, C, Y and Branc h W-135) conjugate vaccine (MCV4P) Meningococcal 2018-01-17 Completed [facility] Polysaccharide 00:00:00 [facility] (groups A, C, Y and Branc h W-135) conjugate vaccine (MCV4P) Meningococcal 2018-01-17 Completed [facility] Polysaccharide 00:00:00 [facility] (groups A, C, Y and Branc h W-135) conjugate vaccine (MCV4P) Meningococcal 2018-01-17 Completed [facility] Polysaccharide 00:00:00 [facility] (groups A, C, Y and [...] Meningococcal 2018-01-17 Completed [facility] Polysaccharide 00:00:00 [facility] (groups A, C, Y and Branc h W-135) conjugate vaccine (MCV4P) Meningococcal 2018-01-17 Completed [facility] Polysaccharide 00:00:00 [facility] (groups A, C, Y and Branc h W-135) conjugate vaccine (MCV4P) Influenza Virus 2017-04-12 Completed [facility]it y of Vaccine Quad IM 3+ 00:00:00 [facility] Influenza Virus 2017-04-12 Completed [facility]it y of Vaccine Quad IM 3+ 00:00:00 [facility] Influenza Virus 2017-04-12 Completed [facility]it y of Vaccine Quad IM 3+ 00:00:00 [facility] Influenza Virus 2017-04-12 Completed [facility]it y of Vaccine Quad IM 3+ 00:00:00 [facility] Influenza Virus 2017-04-12 Completed [facility] y of Vaccine Quad IM 3+ 00:00:00 [facility] Influenza Virus 2017-04-12 Completed [facility]it y of Vaccine Quad IM 3+ 00:00:00 [facility] Influenza Virus 2017-04-12 Completed [facility] y of Vaccine Quad IM 3+ 00:00:00 [facility] Influenza Virus 2017-04-12 Completed [facility] y of Vaccine Quad IM 3+ 00:00:00 [facility] Influenza Virus 2017-04-12 Completed [facility]it y of Vaccine Quad IM 3+ 00:00:00 [facility] Influenza Virus 2017-04-12 Completed [facility] y of Vaccine Quad IM 3+ 00:00:00 [facility] Influenza Virus 2017-04-12 Completed [facility]it y of Vaccine Quad IM 3+ 00:00:00 [facility] Influenza Virus 2017-04-12 Completed [facility]it y of Vaccine Quad IM 3+ 00:00:00 [facility] Influenza Virus 2017-04-12 Completed [facility]it y of Vaccine Quad IM 3+ 00:00:00 [facility] Influenza Virus 2017-04-12 Completed [facility]it y of Vaccine Quad IM 3+ 00:00:00 [facility] Influenza Virus 2017-04-12 Completed [facility]it y of Vaccine Quad IM 3+ 00:00:00 [facility] Influenza Virus 2017-04-12 Completed [facility] y of Vaccine Quad IM 3+ 00:00:00 [facility] Influenza Virus 2017-04-12 Completed [facility] y of Vaccine Quad IM 3+ 00:00:00 [facility] Influenza Virus 2017-04-12 Completed [facility] y of Vaccine Quad IM 3+ 00:00:00 [facility] Influenza Virus 2017-04-12 Completed [facility] y of Vaccine Quad IM 3+ 00:00:00 [facility] Influenza Virus 2017-04-12 Completed [facility] y of Vaccine Quad IM 3+ 00:00:00 [facility] Influenza Virus 2017-04-12 Completed [facility] y of Vaccine Quad IM 3+ 00:00:00 [facility] Influenza Virus 2017-04-12 Completed [facility] of Vaccine Quad IM 3+ 00:00:00 [facility] Influenza Virus 2017-04-12 Completed [facility] y of Vaccine Quad IM 3+ 00:00:00 [facility] Influenza Virus 2017-04-12 Completed [facility] y of Vaccine Quad IM 3+ 00:00:00 [facility] Influenza Virus 2017-04-12 Completed [facility] y of Vaccine Quad IM 3+ 00:00:00 [facility] Influenza Virus 2017-04-12 Completed [facility] y of Vaccine Quad IM 3+ 00:00:00 [facility] Influenza Virus 2017-04-12 Completed [facility] y of Vaccine Quad IM 3+ 00:00:00 [facility] Influenza Virus 2017-04-12 Completed [facility] y of Vaccine Quad IM 3+ 00:00:00 [facility] Influenza Virus 2017-04-12 Completed [facility] y of Vaccine Quad IM 3+ 00:00:00 [facility] Influenza Virus 2017-04-12 Completed [facility] y of Vaccine Quad IM 3+ 00:00:00 [facility] Influenza Virus 2017-04-12 Completed [facility] y of Vaccine Quad IM 3+ 00:00:00 [facility] Influenza Virus 2017-04-12 Completed [facility] of Vaccine Quad IM 3+ 00:00:00 [facility] Influenza Virus 2017-04-12 Completed [facility] y of Vaccine Quad IM 3+ 00:00:00 [facility] Influenza Virus 2017-04-12 Completed [facility] y of Vaccine Quad IM 3+ 00:00:00 [facility] Influenza Virus 2017-04-12 Completed [facility] y of Vaccine Quad IM 3+ 00:00:00 [facility] Influenza Virus 2017-04-12 Completed [facility] y of Vaccine Quad IM 3+ 00:00:00 [facility] Influenza Virus 2017-04-12 Completed [facility] y of Vaccine Quad IM 3+ 00:00:00 [facility] Influenza Virus 2017-04-12 Completed [facility]it y of Vaccine Quad IM 3+ 00:00:00 [facility] HPV9 2017-02-01 Completed University of 00:00:00 [facility] HPV9 2017-02-01 Completed University of 00:00:00 [facility] HPV9 2017-02-01 Completed University of 00:00:00 [facility] HPV9 2017-02-01 Completed [facility] of 00:00:00 [facility] HPV9 2017-02-01 Completed University of 00:00:00 [facility] HPV9 2017-02-01 Completed University of 00:00:00 [facility] HPV9 2017-02-01 Completed [facility] of 00:00:00 [facility] HPV9 2017-02-01 Completed University of 00:00:00 [facility] HPV9 2017-02-01 Completed [facility] of 00:00:00 [facility] HPV9 2017-02-01 Completed [facility] of 00:00:00 [facility] HPV9 2017-02-01 Completed University of 00:00:00 [facility] HPV9 2017-02-01 Completed [facility] of 00:00:00 [facility] HPV9 2017-02-01 Completed [facility] of 00:00:00 [facility] HPV9 2017-02-01 Completed [facility] of 00:00:00 [facility] HPV9 2017-02-01 Completed [facility] of 00:00:00 [facility] HPV9 2017-02-01 Completed [facility] of 00:00:00 [facility] HPV9 2017-02-01 Completed [facility] of 00:00:00 [facility] HPV9 2017-02-01 Completed [facility] of 00:00:00 [facility] HPV9 2017-02-01 Completed [facility] 00:00:00 [facility] HPV9 2017-02-01 Completed [facility] 00:00:00 [facility] HPV9 2017-02-01 Completed [facility] 00:00:00 [facility] HPV9 2017-02-01 Completed [facility] 00:00:00 [facility] HPV9 2017-02-01 Completed [facility] 00:00:00 [facility] HPV9 2017-02-01 Completed [facility] 00:00:00 [facility] HPV9 2017-02-01 Completed [facility] 00:00:00 [facility] HPV9 2017-02-01 Completed [facility] 00:00:00 [facility] HPV9 2017-02-01 Completed [facility] 00:00:00 [facility] HPV9 2017-02-01 Completed [facility] 00:00:00 [facility] HPV9 2017-02-01 Completed [facility] 00:00:00 [facility] HPV9 2017-02-01 Completed [facility] 00:00:00 [facility] HPV9 2017-02-01 Completed [facility] 00:00:00 [facility] HPV9 2017-02-01 Completed [facility] 00:00:00 [facility] HPV9 2017-02-01 Completed [facility] 00:00:00 [facility] HPV9 2017-02-01 Completed [facility] 00:00:00 [facility] HPV9 2017-02-01 Completed [facility] 00:00:00 [facility] HPV9 2017-02-01 Completed [facility] of 00:00:00 [facility] HPV9 2017-02-01 Completed [facility] of 00:00:00 [facility] HPV9 2017-02-01 Completed [facility] 00:00:00 [facility] HPV 2016-01-20 Completed [facility] 00:00:00 [facility] HPV 2016-01-20 Completed [facility] 00:00:00 [facility] HPV 2016-01-20 Completed [facility] 00:00:00 [facility] HPV 2016-01-20 Completed [facility] 00:00:00 [facility] HPV 2016-01-20 Completed [facility] 00:00:00 [facility] HPV 2016-01-20 Completed [facility] 00:00:00 [facility] HPV 2016-01-20 Completed [facility] 00:00:00 [facility] HPV 2016-01-20 Completed [facility] 00:00:00 [facility] HPV 2016-01-20 Completed [facility] 00:00:00 [facility] HPV 2016-01-20 Completed [facility] 00:00:00 [facility] HPV 2016-01-20 Completed [facility] 00:00:00 [facility] HPV 2016-01-20 Completed [facility] 00:00:00 [facility] HPV 2016-01-20 Completed [facility] 00:00:00 [facility] HPV 2016-01-20 Completed [facility] 00:00:00 [facility] HPV 2016-01-20 Completed [facility] 00:00:00 [facility] HPV 2016-01-20 Completed [facility] 00:00:00 [facility] HPV 2016-01-20 Completed [facility] 00:00:00 [facility] HPV 2016-01-20 Completed [facility] 00[facility]00:00 [facility] HPV 2016-01-20 Completed [facility] 00:00:00 [facility] HPV 2016-01-20 Completed [facility] 00:00:00 [facility] HPV 2016-01-20 Completed [facility] 00:00:00 [facility] HPV 2016-01-20 Completed [facility] 00:00:00 [facility] HPV 2016-01-20 Completed [facility] 00:00:00 [facility] HPV 2016-01-20 Completed [facility] 00[facility]00:00 [facility] HPV 2016-01-20 Completed [facility] 00:00:00 [facility] HPV 2016-01-20 Completed [facility] 00:00:00 [facility] HPV 2016-01-20 Completed [facility] 00:00:00 [facility] HPV 2016-01-20 Completed [facility] 00:00:00 [facility] HPV 2016-01-20 Completed [facility] 00:00:00 [facility] HPV 2016-01-20 Completed [facility] 00:00:00 [facility] HPV 2016-01-20 Completed [facility] 00:00:00 [facility] HPV 2016-01-20 Completed [facility] 00:00:00 [facility] HPV 2016-01-20 Completed [facility] 00:00:00 [facility] HPV 2016-01-20 Completed [facility] 00:00:00 [facility] HPV 2016-01-20 Completed [facility] 00:00:00 [facility] HPV 2016-01-20 Completed [facility] 00:00:00 [facility] HPV 2016-01-20 Completed [facility] 00:00:00 [facility] HPV 2016-01-20 Completed [facility] 00:00:00 [facility] Influenza Virus 2015-07-08 Completed [facility] y [facility] Vaccine Quad IM 3+ 00:00:00 [facility] HPV9 2015-07-08 Completed [facility] 00:00:00 [facility] Influenza Virus 2015-07-08 Completed [facility] y of Vaccine Quad IM 3+ 00:00:00 [facility] HPV9 2015-07-08 Completed [facility] 00:00:00 [facility] Influenza Virus 2015-07-08 Completed [facility] y of Vaccine Quad IM 3+ 00:00:00 [facility] HPV9 2015-07-08 Completed [facility] 00:00:00 [facility] Influenza Virus 2015-07-08 Completed [facility] of Vaccine Quad IM 3+ 00:00:00 [facility] HPV9 2015-07-08 Completed [facility] 00:00:00 [facility] Influenza Virus 2015-07-08 Completed [facility] y of Vaccine Quad IM 3+ 00:00:00 [facility] HPV9 2015-07-08 Completed [facility] 00:00:00 [facility] Influenza Virus 2015-07-08 Completed [facility] y of Vaccine Quad IM 3+ 00:00:00 [facility] HPV9 2015-07-08 Completed [facility] 00:00:00 [facility] Influenza Virus 2015-07-08 Completed [facility] y of Vaccine Quad IM 3+ 00:00:00 [facility] HPV9 2015-07-08 Completed [facility] 00:00:00 [facility] Influenza Virus 2015-07-08 Completed [facility] y of Vaccine Quad IM 3+ 00:00:00 [facility] HPV9 2015-07-08 Completed [facility] 00:00:00 [facility] Influenza Virus 2015-07-08 Completed [facility] y of Vaccine Quad IM 3+ 00:00:00 [facility] HPV9 2015-07-08 Completed [facility] 00:00:00 [facility] Influenza Virus 2015-07-08 Completed [facility] y of Vaccine Quad IM 3+ 00:00:00 [facility] HPV9 2015-07-08 Completed [facility] 00:00:00 [facility] Influenza Virus 2015-07-08 Completed [facility] y of Vaccine Quad IM 3+ 00:00:00 [facility] HPV9 2015-07-08 Completed [facility] 00:00:00 [facility] Influenza Virus 2015-07-08 Completed [facility] y of Vaccine Quad IM 3+ 00:00:00 [facility] HPV9 2015-07-08 Completed [facility] 00:00:00 [facility] Influenza Virus 2015-07-08 Completed [facility] y of Vaccine Quad IM 3+ 00:00:00 [facility] HPV9 2015-07-08 Completed [facility] 00:00:00 [facility] Influenza Virus 2015-07-08 Completed [facility] y of Vaccine Quad IM 3+ 00:00:00 [facility] HPV9 2015-07-08 Completed [facility] 00:00:00 [facility] Influenza Virus 2015-07-08 Completed [facility] y of Vaccine Quad IM 3+ 00:00:00 [facility] HPV9 2015-07-08 Completed [facility] 00:00:00 [facility] Influenza Virus 2015-07-08 Completed [facility] y of Vaccine Quad IM 3+ 00:00:00 [facility] HPV9 2015-07-08 Completed [facility] 00:00:00 [facility] Influenza Virus 2015-07-08 Completed [facility] y of Vaccine Quad IM 3+ 00:00:00 [facility] HPV9 2015-07-08 Completed [facility] 00:00:00 [facility] Influenza Virus 2015-07-08 Completed [facility] y of Vaccine Quad IM 3+ 00:00:00 [facility] HPV9 2015-07-08 Completed [facility] 00:00:00 [facility] Influenza Virus 2015-07-08 Completed [facility] y of Vaccine Quad IM 3+ 00:00:00 [facility] HPV9 2015-07-08 Completed [facility] 00:00:00 [facility] Influenza Virus 2015-07-08 Completed [facility] y of Vaccine Quad IM 3+ 00:00:00 [facility] HPV9 2015-07-08 Completed [facility] 00:00:00 [facility] Influenza Virus 2015-07-08 Completed [facility] y of Vaccine Quad IM 3+ 00:00:00 [facility] HPV9 2015-07-08 Completed [facility] 00:00:00 [facility] Influenza Virus 2015-07-08 Completed [facility] y of Vaccine Quad IM 3+ 00:00:00 [facility] HPV9 2015-07-08 Completed [facility] 00:00:00 [facility] Influenza Virus 2015-07-08 Completed [facility] y of Vaccine Quad IM 3+ 00:00:00 [facility] HPV9 2015-07-08 Completed [facility] 00:00:00 [facility] Influenza Virus 2015-07-08 Completed [facility] y of Vaccine Quad IM 3+ 00:00:00 [facility] HPV9 2015-07-08 Completed [facility] 00:00:00 [facility] Influenza Virus 2015-07-08 Completed [facility] y of Vaccine Quad IM 3+ 00:00:00 [facility] HPV9 2015-07-08 Completed [facility] 00:00:00 [facility] Influenza Virus 2015-07-08 Completed [facility] y of Vaccine Quad IM 3+ 00:00:00 [facility] HPV9 2015-07-08 Completed [facility] 00:00:00 [facility] Influenza Virus 2015-07-08 Completed [facility] y of Vaccine Quad IM 3+ 00:00:00 [facility] HPV9 2015-07-08 Completed [facility] 00:00:00 [facility] Influenza Virus 2015-07-08 Completed [facility] y of Vaccine Quad IM 3+ 00:00:00 [facility] HPV9 2015-07-08 Completed [facility] 00:00:00 [facility] Influenza Virus 2015-07-08 Completed [facility] y of Vaccine Quad IM 3+ 00:00:00 [facility] HPV9 2015-07-08 Completed [facility] 00:00:00 [facility] Influenza Virus 2015-07-08 Completed [facility] y of Vaccine Quad IM 3+ 00:00:00 [facility] HPV9 2015-07-08 Completed [facility] 00:00:00 [facility] Influenza Virus 2015-07-08 Completed [facility] y of Vaccine Quad IM 3+ 00:00:00 [facility] HPV9 2015-07-08 Completed [facility] 00:00:00 [facility] Influenza Virus 2015-07-08 Completed [facility] y of Vaccine Quad IM 3+ 00:00:00 [facility] HPV9 2015-07-08 Completed [facility] 00:00:00 [facility] Influenza Virus 2015-07-08 Completed [facility] y of Vaccine Quad IM 3+ 00:00:00 [facility] HPV9 2015-07-08 Completed [facility] 00:00:00 [facility] Influenza Virus 2015-07-08 Completed [facility] y of Vaccine Quad IM 3+ 00:00:00 [facility] HPV9 2015-07-08 Completed [facility] 00:00:00 [facility] Influenza Virus 2015-07-08 Completed [facility] y of Vaccine Quad IM 3+ 00:00:00 [facility] HPV9 2015-07-08 Completed [facility] 00:00:00 [facility] Influenza Virus 2015-07-08 Completed [facility] y of Vaccine Quad IM 3+ 00:00:00 [facility] HPV9 2015-07-08 Completed [facility] 00:00:00 [facility] Influenza Virus 2015-07-08 Completed [facility] y of Vaccine Quad IM 3+ 00:00:00 [facility] HPV9 2015-07-08 Completed [facility] 00:00:00 [facility] Influenza Virus 2015-07-08 Completed [facility] y of Vaccine Quad IM 3+ 00:00:00 [facility] HPV9 2015-07-08 Completed [facility] 00:00:00 [facility] Influenza Virus 2014-04-02 Completed [facility] y of Vaccine (3+ yrs) 00:00:00 [facility] Influenza Virus 2014-04-02 Completed [facility] y of Vaccine (3+ yrs) 00:00:00 [facility] Influenza Virus 2014-04-02 Completed [facility] y of Vaccine (3+ yrs) 00:00:00 [facility] Influenza Virus 2014-04-02 Completed [facility] y of Vaccine (3+ yrs) 00:00:00 [facility] Influenza Virus 2014-04-02 Completed [facility] y of Vaccine (3+ yrs) 00:00:00 [facility] Influenza Virus 2014-04-02 Completed [facility] y of Vaccine (3+ yrs) 00:00:00 [facility] Influenza Virus 2014-04-02 Completed [facility] y of Vaccine (3+ yrs) 00:00:00 [facility] Influenza Virus 2014-04-02 Completed [facility] y of Vaccine (3+ yrs) 00:00:00 [facility] Influenza Virus 2014-04-02 Completed [facility] y of Vaccine (3+ yrs) 00:00:00 [facility] Influenza Virus 2014-04-02 Completed [facility] y of Vaccine (3+ yrs) 00:00:00 [facility] Influenza Virus 2014-04-02 Completed [facility] y of Vaccine (3+ yrs) 00:00:00 [facility] Influenza Virus 2014-04-02 Completed [facility] y of Vaccine (3+ yrs) 00:00:00 [facility] Influenza Virus 2014-04-02 Completed [facility] of Vaccine (3+ yrs) 00:00:00 [facility] Influenza Virus 2014-04-02 Completed [facility] y of Vaccine (3+ yrs) 00:00:00 [facility] Influenza Virus 2014-04-02 Completed [facility] y of Vaccine (3+ yrs) 00:00:00 [facility] Influenza Virus 2014-04-02 Completed [facility] y of Vaccine (3+ yrs) 00:00:00 [facility] Influenza Virus 2014-04-02 Completed [facility] y of Vaccine (3+ yrs) 00:00:00 [facility] Influenza Virus 2014-04-02 Completed [facility] y of Vaccine (3+ yrs) 00:00:00 [facility] Influenza Virus 2014-04-02 Completed [facility] y of Vaccine (3+ yrs) 00:00:00 [facility] Influenza Virus 2014-04-02 Completed [facility] y of Vaccine (3+ yrs) 00:00:00 [facility] Influenza Virus 2014-04-02 Completed [facility] y of Vaccine (3+ yrs) 00:00:00 [facility] Influenza Virus 2014-04-02 Completed [facility] y of Vaccine (3+ yrs) 00:00:00 [facility] Influenza Virus 2014-04-02 Completed [facility] of Vaccine (3+ yrs) 00:00:00 [facility] Influenza Virus 2014-04-02 Completed [facility] of Vaccine (3+ yrs) 00:00:00 [facility] Influenza Virus 2014-04-02 Completed [facility] of Vaccine (3+ yrs) 00:00:00 [facility] Influenza Virus 2014-04-02 Completed [facility] of Vaccine (3+ yrs) 00:00:00 [facility] Influenza Virus 2014-04-02 Completed [facility] y of Vaccine (3+ yrs) 00:00:00 [facility] Influenza Virus 2014-04-02 Completed [facility] y of Vaccine (3+ yrs) 00:00:00 [facility] Influenza Virus 2014-04-02 Completed [facility] y of Vaccine (3+ yrs) 00:00:00 [facility] Influenza Virus 2014-04-02 Completed [facility] y of Vaccine (3+ yrs) 00:00:00 [facility] Influenza Virus 2014-04-02 Completed [facility] y of Vaccine (3+ yrs) 00:00:00 [facility] Influenza Virus 2014-04-02 Completed [facility] y of Vaccine (3+ yrs) 00:00:00 [facility] Influenza Virus 2014-04-02 Completed [facility] y of Vaccine (3+ yrs) 00:00:00 [facility] Influenza Virus 2014-04-02 Completed [facility] y of Vaccine (3+ yrs) 00:00:00 [facility] Influenza Virus 2014-04-02 Completed [facility] of Vaccine (3+ yrs) 00:00:00 [facility] Influenza Virus 2014-04-02 Completed [facility] of Vaccine (3+ yrs) 00:00:00 [facility] Influenza Virus 2014-04-02 Completed [facility] of Vaccine (3+ yrs) 00:00:00 [facility] Influenza Virus 2014-04-02 Completed [facility] y of Vaccine (3+ yrs) 00:00:00 [facility] Influenza Virus 2013-05-22 Completed [facility] y of Vaccine (3+ yrs) 00:00:00 [facility] Meningococcal 2013-05-22 Completed [facility] Polysaccharide 00:00:00 [facility] (groups A, C, Y and Branc h W-135) conjugate vaccine (MCV4P) TDAP 2013-05-22 Completed [facility] 00:00:00 [facility] Influenza Virus 2013-05-22 Completed [facility] y of Vaccine (3+ yrs) 00:00:00 [facility] Meningococcal 2013-05-22 Completed [facility] Polysaccharide 00:00:00 [facility] (groups A, C, Y and Branc h W-135) conjugate vaccine (MCV4P) TDAP 2013-05-22 Completed [facility] 00:00:00 [facility] Influenza Virus 2013-05-22 Completed [facility] of Vaccine (3+ yrs) 00:00:00 [facility] Meningococcal 2013-05-22 Completed [facility] Polysaccharide 00:00:00 [facility] (groups A, C, Y and Branc h W-135) conjugate vaccine (MCV4P) TDAP 2013-05-22 Completed [facility] 00:00:00 [facility] Influenza Virus 2013-05-22 Completed [facility] of Vaccine (3+ yrs) 00:00:00 [facility] Meningococcal 2013-05-22 Completed [facility] Polysaccharide 00:00:00 [facility] (groups A, C, Y and Branc h W-135) conjugate vaccine (MCV4P) TDAP 2013-05-22 Completed [facility] 00:00:00 [facility] Influenza Virus 2013-05-22 Completed [facility] y of Vaccine (3+ yrs) 00:00:00 [facility] Meningococcal 2013-05-22 Completed [facility] Polysaccharide 00:00:00 [facility] (groups A, C, Y and Branc h W-135) conjugate vaccine (MCV4P) TDAP 2013-05-22 Completed [facility] 00:00:00 [facility] Influenza Virus 2013-05-22 Completed [facility] y of Vaccine (3+ yrs) 00:00:00 [facility] Meningococcal 2013-05-22 Completed [facility] Polysaccharide 00:00:00 [facility] (groups A, C, Y and Branc h W-135) conjugate vaccine (MCV4P) TDAP 2013-05-22 Completed [facility] 00:00:00 [facility] Influenza Virus 2013-05-22 Completed [facility] of Vaccine (3+ yrs) 00:00:00 [facility] Meningococcal 2013-05-22 Completed [facility] Polysaccharide 00:00:00 [facility] (groups A, C, Y and Branc h W-135) conjugate vaccine (MCV4P) TDAP 2013-05-22 Completed [facility] 00:00:00 [facility] Influenza Virus 2013-05-22 Completed [facility] of Vaccine (3+ yrs) 00:00:00 [facility] Meningococcal 2013-05-22 Completed [facility] Polysaccharide 00:00:00 [facility] (groups A, C, Y and Branc h W-135) conjugate vaccine (MCV4P) TDAP 2013-05-22 Completed [facility] 00:00:00 [facility] Influenza Virus 2013-05-22 Completed [facility] of Vaccine (3+ yrs) 00:00:00 [facility] Meningococcal 2013-05-22 Completed [facility] Polysaccharide 00:00:00 [facility] (groups A, C, Y and Branc h W-135) conjugate vaccine (MCV4P) TDAP 2013-05-22 Completed [facility] 00:00:00 [facility] Influenza Virus 2013-05-22 Completed [facility] of Vaccine (3+ yrs) 00:00:00 [facility] Meningococcal 2013-05-22 Completed [facility] Polysaccharide 00:00:00 [facility] (groups A, C, Y and Branc h W-135) conjugate vaccine (MCV4P) TDAP 2013-05-22 Completed [facility] 00:00:00 [facility] Influenza Virus 2013-05-22 Completed [facility] of Vaccine (3+ yrs) 00:00:00 [facility] Meningococcal 2013-05-22 Completed [facility] Polysaccharide 00:00:00 [facility] (groups A, C, Y and Branc h W-135) conjugate vaccine (MCV4P) TDAP 2013-05-22 Completed [facility] 00:00:00 [facility] Influenza Virus 2013-05-22 Completed [facility] of Vaccine (3+ yrs) 00:00:00 [facility] Meningococcal 2013-05-22 Completed [facility] Polysaccharide 00:00:00 [facility] (groups A, C, Y and Branc h W-135) conjugate vaccine (MCV4P) TDAP 2013-05-22 Completed [facility] 00:00:00 [facility] Influenza Virus 2013-05-22 Completed [facility] of Vaccine (3+ yrs) 00:00:00 [facility] Meningococcal 2013-05-22 Completed [facility] Polysaccharide 00:00:00 [facility] (groups A, C, Y and Branc h W-135) conjugate vaccine (MCV4P) TDAP 2013-05-22 Completed [facility] 00:00:00 [facility] Influenza Virus 2013-05-22 Completed [facility] of Vaccine (3+ yrs) 00:00:00 [facility] Meningococcal 2013-05-22 Completed [facility] Polysaccharide 00:00:00 [facility] (groups A, C, Y and Branc h W-135) conjugate vaccine (MCV4P) TDAP 2013-05-22 Completed [facility] 00:00:00 [facility] Influenza Virus 2013-05-22 Completed [facility] of Vaccine (3+ yrs) 00:00:00 [facility] Meningococcal 2013-05-22 Completed [facility] Polysaccharide 00:00:00 [facility] (groups A, C, Y and Branc h W-135) conjugate vaccine (MCV4P) TDAP 2013-05-22 Completed [facility] 00:00:00 [facility] Influenza Virus 2013-05-22 Completed [facility] of Vaccine (3+ yrs) 00:00:00 [facility] Meningococcal 2013-05-22 Completed [facility] Polysaccharide 00:00:00 [facility] (groups A, C, Y and Branc h W-135) conjugate vaccine (MCV4P) TDAP 2013-05-22 Completed [facility] 00:00:00 [facility] Influenza Virus 2013-05-22 Completed [facility] of Vaccine (3+ yrs) 00:00:00 [facility] Meningococcal 2013-05-22 Completed [facility] Polysaccharide 00:00:00 [facility] (groups A, C, Y and Branc h W-135) conjugate vaccine (MCV4P) TDAP 2013-05-22 Completed [facility] 00:00:00 [facility] Influenza Virus 2013-05-22 Completed [facility] of Vaccine (3+ yrs) 00:00:00 [facility] Meningococcal 2013-05-22 Completed [facility] Polysaccharide 00:00:00 [facility] (groups A, C, Y and Branc h W-135) conjugate vaccine (MCV4P) TDAP 2013-05-22 Completed [facility] 00:00:00 [facility] Influenza Virus 2013-05-22 Completed [facility] of Vaccine (3+ yrs) 00:00:00 [facility] Meningococcal 2013-05-22 Completed [facility] Polysaccharide 00:00:00 [facility] (groups A, C, Y and Branc h W-135) conjugate vaccine (MCV4P) TDAP 2013-05-22 Completed [facility] 00:00:00 [facility] Influenza Virus 2013-05-22 Completed [facility] of Vaccine (3+ yrs) 00:00:00 [facility] Meningococcal 2013-05-22 Completed [facility] Polysaccharide 00:00:00 [facility] (groups A, C, Y and Branc h W-135) conjugate vaccine (MCV4P) TDAP 2013-05-22 Completed [facility] 00:00:00 [facility] Influenza Virus 2013-05-22 Completed [facility] of Vaccine (3+ yrs) 00:00:00 [facility] Meningococcal 2013-05-22 Completed [facility] Polysaccharide 00:00:00 [facility] (groups A, C, Y and Branc h W-135) conjugate vaccine (MCV4P) TDAP 2013-05-22 Completed [facility] 00:00:00 [facility] Influenza Virus 2013-05-22 Completed [facility] of Vaccine (3+ yrs) 00:00:00 [facility] Meningococcal 2013-05-22 Completed [facility] Polysaccharide 00:00:00 [facility] (groups A, C, Y and Branc h W-135) conjugate vaccine (MCV4P) TDAP 2013-05-22 Completed [facility] 00:00:00 [facility] Influenza Virus 2013-05-22 Completed [facility] of Vaccine (3+ yrs) 00:00:00 [facility] Meningococcal 2013-05-22 Completed [facility] Polysaccharide 00:00:00 [facility] (groups A, C, Y and Branc h W-135) conjugate vaccine (MCV4P) TDAP 2013-05-22 Completed [facility] 00:00:00 [facility] Influenza Virus 2013-05-22 Completed [facility] of Vaccine (3+ yrs) 00:00:00 [facility] Meningococcal 2013-05-22 Completed [facility] Polysaccharide 00:00:00 [facility] (groups A, C, Y and Branc h W-135) conjugate vaccine (MCV4P) TDAP 2013-05-22 Completed [facility] 00:00:00 [facility] Influenza Virus 2013-05-22 Completed [facility] Vaccine (3+ yrs) 00:00:00 [facility] Meningococcal 2013-05-22 Completed [facility] Polysaccharide 00:00:00 [facility] (groups A, C, Y and Branc h W-135) conjugate vaccine (MCV4P) TDAP 2013-05-22 Completed [facility] 00:00:00 [facility] Influenza Virus 2013-05-22 Completed [facility] Vaccine (3+ yrs) 00:00:00 [facility] Meningococcal 2013-05-22 Completed [facility] Polysaccharide 00:00:00 [facility] (groups A, C, Y and Branc h W-135) conjugate vaccine (MCV4P) TDAP 2013-05-22 Completed [facility] 00:00:00 [facility] Influenza Virus 2013-05-22 Completed [facility] Vaccine (3+ yrs) 00:00:00 [facility] Meningococcal 2013-05-22 Completed [facility] Polysaccharide 00:00:00 [facility] (groups A, C, Y and Branc h W-135) conjugate vaccine (MCV4P) TDAP 2013-05-22 Completed [facility] 00:00:00 [facility] Influenza Virus 2013-05-22 Completed [facility] Vaccine (3+ yrs) 00:00:00 [facility] Meningococcal 2013-05-22 Completed [facility] Polysaccharide 00:00:00 [facility] (groups A, C, Y and Branc h W-135) conjugate vaccine (MCV4P) TDAP 2013-05-22 Completed [facility] 00:00:00 [facility] Influenza Virus 2013-05-22 Completed [facility] Vaccine (3+ yrs) 00:00:00 [facility] Meningococcal 2013-05-22 Completed [facility] Polysaccharide 00:00:00 [place] [facility] (groups A, C, Y and Branc h W-135) conjugate vaccine (MCV4P) TDAP 2013-05-22 Completed [facility] 00:00:00 [facility] Influenza Virus 2013-05-22 Completed [facility] Vaccine (3+ yrs) 00:00:00 [facility] Meningococcal 2013-05-22 Completed [facility] Polysaccharide 00:00:00 [place] [facility] (groups A, C, Y and Branc h W-135) conjugate vaccine (MCV4P) TDAP 2013-05-22 Completed [facility] 00:00:00 [facility] Influenza Virus 2013-05-22 Completed [facility] Vaccine (3+ yrs) 00:00:00 [facility] Meningococcal 2013-05-22 Completed [facility] Polysaccharide 00:00:00 [facility] (groups A, C, Y and Branc h W-135) conjugate vaccine (MCV4P) TDAP 2013-05-22 Completed [facility] 00:00:00 [facility] Influenza Virus 2013-05-22 Completed [facility] Vaccine (3+ yrs) 00:00:00 [facility] Meningococcal 2013-05-22 Completed [facility] Polysaccharide 00:00:00 [place] [facility] (groups A, C, Y and Branc h W-135) conjugate vaccine (MCV4P) TDAP 2013-05-22 Completed [facility] 00:00:00 [facility] Influenza Virus 2013-05-22 Completed [facility] Vaccine (3+ yrs) 00:00:00 [facility] Meningococcal 2013-05-22 Completed [facility] Polysaccharide 00:00:00 [facility] (groups A, C, Y and Branc h W-135) conjugate vaccine (MCV4P) TDAP 2013-05-22 Completed [facility] 00:00:00 [facility] Influenza Virus 2013-05-22 Completed [facility] Vaccine (3+ yrs) 00:00:00 [facility] Meningococcal 2013-05-22 Completed [facility] Polysaccharide 00:00:00 [facility] (groups A, C, Y and Branc h W-135) conjugate vaccine (MCV4P) TDAP 2013-05-22 Completed [facility] 00:00:00 [facility] Influenza Virus 2013-05-22 Completed [facility] Vaccine (3+ yrs) 00:00:00 [facility] Meningococcal 2013-05-22 Completed [facility] Polysaccharide 00:00:00 [facility] (groups A, C, Y and Branc h W-135) conjugate vaccine (MCV4P) TDAP 2013-05-22 Completed [facility] 00:00:00 [facility] Influenza Virus 2013-05-22 Completed [facility] Vaccine (3+ yrs) 00:00:00 [facility] Meningococcal 2013-05-22 Completed [facility] Polysaccharide 00:00:00 [place] [facility] (groups A, C, Y and Branc h W-135) conjugate vaccine (MCV4P) TDAP 2013-05-22 Completed [facility] 00:00:00 [facility] Influenza Virus 2013-05-22 Completed [facility] Vaccine (3+ yrs) 00:00:00 [facility] Meningococcal 2013-05-22 Completed [facility] Polysaccharide 00:00:00 [place] [facility] (groups A, C, Y and Branc h W-135) conjugate vaccine (MCV4P) TDAP 2013-05-22 Completed [facility] 00:00:00 [facility] Influenza Virus 2013-05-22 Completed [facility] Vaccine (3+ yrs) 00:00:00 [facility] Meningococcal 2013-05-22 Completed [facility] Polysaccharide 00:00:00 [place] [facility] (groups A, C, Y and Branc h W-135) conjugate vaccine (MCV4P) TDAP 2013-05-22 Completed [facility] 00:00:00 [facility] Influenza Virus 2012-06-13 Completed [facility] Vaccine 00:00:00 [facility] Influenza Virus 2012-06-13 Completed [facility] Vaccine 00:00:00 [facility] Influenza Virus 2012-06-13 Completed [facility] Vaccine 00:00:00 [facility] Influenza Virus 2012-06-13 Completed [facility] Vaccine 00:00:00 [facility] Influenza Virus 2012-06-13 Completed [facility] Vaccine 00:00:00 [facility] Influenza Virus 2012-06-13 Completed [facility] Vaccine 00:00:00 [facility] Influenza Virus 2012-06-13 Completed [facility] Vaccine 00:00:00 [facility] Influenza Virus 2012-06-13 Completed [facility] Vaccine 00:00:00 [facility] Influenza Virus 2012-06-13 Completed [facility] Vaccine 00:00:00 [facility] Influenza Virus 2012-06-13 Completed [facility] Vaccine 00:00:00 [facility] Influenza Virus 2012-06-13 Completed [facility] Vaccine 00:00:00 [facility] Influenza Virus 2012-06-13 Completed [facility] Vaccine 00:00:00 [facility] Influenza Virus 2012-06-13 Completed [facility] Vaccine 00:00:00 [facility] Influenza Virus 2012-06-13 Completed [facility] Vaccine 00:00:00 [facility] Influenza Virus 2012-06-13 Completed [facility] Vaccine 00:00:00 [facility] Influenza Virus 2012-06-13 Completed [facility] Vaccine 00:00:00 [facility] Influenza Virus 2012-06-13 Completed [facility] Vaccine 00:00:00 [facility] Influenza Virus 2012-06-13 Completed [facility] Vaccine 00:00:00 [facility] Influenza Virus 2012-06-13 Completed [facility] Vaccine 00:00:00 [facility] Influenza Virus 2012-06-13 Completed [facility] Vaccine 00:00:00 [facility] Influenza Virus 2012-06-13 Completed [facility] Vaccine 00:00:00 [facility] Influenza Virus 2012-06-13 Completed [facility] Vaccine 00:00:00 [facility] Influenza Virus 2012-06-13 Completed [facility] Vaccine 00:00:00 [facility] Influenza Virus 2012-06-13 Completed [facility] Vaccine 00:00:00 [facility] Influenza Virus 2012-06-13 Completed [facility] Vaccine 00:00:00 [facility] Influenza Virus 2012-06-13 Completed [facility] Vaccine 00:00:00 [facility] Influenza Virus 2012-06-13 Completed [facility] Vaccine 00:00:00 [facility] Influenza Virus 2012-06-13 Completed [facility] Vaccine 00:00:00 [facility] Influenza Virus 2012-06-13 Completed [facility] Vaccine 00:00:00 [facility] Influenza Virus 2012-06-13 Completed [facility] Vaccine 00:00:00 [facility] Influenza Virus 2012-06-13 Completed [facility] Vaccine 00:00:00 [facility] Influenza Virus 2012-06-13 Completed [facility] Vaccine 00:00:00 [facility] Influenza Virus 2012-06-13 Completed [facility] Vaccine 00:00:00 [facility] Influenza Virus 2012-06-13 Completed [facility] Vaccine 00:00:00 [facility] Influenza Virus 2012-06-13 Completed [facility] Vaccine 00:00:00 [facility] Influenza Virus 2012-06-13 Completed [facility] Vaccine 00:00:00 [facility] Influenza Virus 2012-06-13 Completed [facility] Vaccine 00:00:00 [facility] Influenza Virus 2012-06-13 Completed [facility] Vaccine 00:00:00 [facility] Influenza Virus 2011-05-18 Completed [facility] Vaccine 00:00:00 [facility] Influenza Virus 2011-05-18 Completed [facility] Vaccine 00:00:00 [facility] Influenza Virus 2011-05-18 Completed [facility] Vaccine 00:00:00 [facility] Influenza Virus 2011-05-18 Completed [facility] Vaccine 00:00:00 [facility] Influenza Virus 2011-05-18 Completed [facility] Vaccine 00:00:00 [facility] Influenza Virus 2011-05-18 Completed [facility] Vaccine 00:00:00 [facility] Influenza Virus 2011-05-18 Completed [facility] Vaccine 00:00:00 [facility] Influenza Virus 2011-05-18 Completed [facility] Vaccine 00:00:00 [facility] Influenza Virus 2011-05-18 Completed [facility] Vaccine 00:00:00 [facility] Influenza Virus 2011-05-18 Completed [facility] Vaccine 00:00:00 [facility] Influenza Virus 2011-05-18 Completed [facility] Vaccine 00:00:00 [facility] Influenza Virus 2011-05-18 Completed [facility] Vaccine 00:00:00 [facility] Influenza Virus 2011-05-18 Completed [facility] Vaccine 00:00:00 [facility] Influenza Virus 2011-05-18 Completed [facility] Vaccine 00:00:00 [facility] Influenza Virus 2011-05-18 Completed [facility] Vaccine 00:00:00 [facility] Influenza Virus 2011-05-18 Completed [facility] Vaccine 00:00:00 [facility] Influenza Virus 2011-05-18 Completed [facility] Vaccine 00:00:00 [facility] Influenza Virus 2011-05-18 Completed [facility] Vaccine 00:00:00 [facility] Influenza Virus 2011-05-18 Completed [facility] Vaccine 00:00:00 [facility] Influenza Virus 2011-05-18 Completed [facility] Vaccine 00:00:00 [facility] Influenza Virus 2011-05-18 Completed [facility] Vaccine 00:00:00 [facility] Influenza Virus 2011-05-18 Completed [facility] Vaccine 00:00:00 [facility] Influenza Virus 2011-05-18 Completed [facility] Vaccine 00:00:00 [facility] Influenza Virus 2011-05-18 Completed [facility] Vaccine 00:00:00 [facility] Influenza Virus 2011-05-18 Completed [facility] Vaccine 00:00:00 [facility] Influenza Virus 2011-05-18 Completed [facility] Vaccine 00[facility]00:00 [facility] Influenza Virus 2011-05-18 Completed [facility] Vaccine 00:00:00 [facility] Influenza Virus 2011-05-18 Completed [facility] Vaccine 00:00:00 [facility] Influenza Virus 2011-05-18 Completed [facility] Vaccine 00:00:00 [facility] Influenza Virus 2011-05-18 Completed [facility] Vaccine 00:00:00 [facility] Influenza Virus 2011-05-18 Completed [facility] Vaccine 00:00:00 [facility] Influenza Virus 2011-05-18 Completed [facility] Vaccine 00:00:00 [facility] Influenza Virus 2011-05-18 Completed [facility] Vaccine 00:00:00 [facility] Influenza Virus 2011-05-18 Completed [facility] Vaccine 00:00:00 [facility] Influenza Virus 2011-05-18 Completed [facility] Vaccine 00:00:00 [facility] Influenza Virus 2011-05-18 Completed [facility] Vaccine 00:00:00 [facility] Influenza Virus 2011-05-18 Completed [facility] Vaccine 00:00:00 [facility] Influenza Virus 2011-05-18 Completed [facility] Vaccine 00:00:00 [facility] Influenza Virus 2010-05-26 Completed [facility] Vaccine 00:00:00 [facility] Influenza Virus 2010-05-26 Completed [facility] Vaccine 00:00:00 [facility] Influenza Virus 2010-05-26 Completed [facility] Vaccine 00:00:00 [facility] Influenza Virus 2010-05-26 Completed [facility] Vaccine 00:00:00 [facility] Influenza Virus 2010-05-26 Completed [facility] Vaccine 00:00:00 [facility] Influenza Virus 2010-05-26 Completed [facility] Vaccine 00:00:00 [facility] Influenza Virus 2010-05-26 Completed [facility] Vaccine 00:00:00 [facility] Influenza Virus 2010-05-26 Completed [facility] Vaccine 00:00:00 [facility] Influenza Virus 2010-05-26 Completed [facility] Vaccine 00:00:00 [facility] Influenza Virus 2010-05-26 Completed [facility] Vaccine 00:00:00 [facility] Influenza Virus 2010-05-26 Completed [facility] Vaccine 00:00:00 [facility] Influenza Virus 2010-05-26 Completed [facility] Vaccine 00:00:00 [facility] Influenza Virus 2010-05-26 Completed [facility] Vaccine 00:00:00 [facility] Influenza Virus 2010-05-26 Completed [facility] Vaccine 00:00:00 [facility] Influenza Virus 2010-05-26 Completed [facility] Vaccine 00:00:00 [facility] Influenza Virus 2010-05-26 Completed [facility] Vaccine 00:00:00 [facility] Influenza Virus 2010-05-26 Completed [facility] Vaccine 00:00:00 [facility] Influenza Virus 2010-05-26 Completed [facility] Vaccine 00:00:00 [facility] Influenza Virus 2010-05-26 Completed [facility] Vaccine 00:00:00 [facility] Influenza Virus 2010-05-26 Completed [facility] Vaccine 00:00:00 [facility] Influenza Virus 2010-05-26 Completed [facility] Vaccine 00:00:00 [facility] Influenza Virus 2010-05-26 Completed [facility] Vaccine 00:00:00 [facility] Influenza Virus 2010-05-26 Completed [facility] Vaccine 00:00:00 [facility] Influenza Virus 2010-05-26 Completed [facility] Vaccine 00:00:00 [facility] Influenza Virus 2010-05-26 Completed [facility] Vaccine 00:00:00 [facility] Influenza Virus 2010-05-26 Completed [facility] Vaccine 00:00:00 [facility] Influenza Virus 2010-05-26 Completed [facility] Vaccine 00:00:00 [facility] Influenza Virus 2010-05-26 Completed [facility] Vaccine 00:00:00 [facility] Influenza Virus 2010-05-26 Completed [facility] Vaccine 00:00:00 [facility] Influenza Virus 2010-05-26 Completed [facility] Vaccine 00:00:00 [facility] Influenza Virus 2010-05-26 Completed [facility] Vaccine 00:00:00 [facility] Influenza Virus 2010-05-26 Completed [facility] Vaccine 00:00:00 [facility] Influenza Virus 2010-05-26 Completed [facility] Vaccine 00:00:00 [facility] Influenza Virus 2010-05-26 Completed [facility] Vaccine 00:00:00 [facility] Influenza Virus 2010-05-26 Completed [facility] Vaccine 00:00:00 [facility] Influenza Virus 2010-05-26 Completed [facility] Vaccine 00:00:00 [facility] Influenza Virus 2010-05-26 Completed [facility] Vaccine 00:00:00 [facility] Influenza Virus 2010-05-26 Completed [facility] Vaccine 00:00:00 [facility] Influenza Virus 2009-06-23 Completed [facility] Vaccine 00:00:00 [facility] Influenza Virus 2009-06-23 Completed [facility] Vaccine 00:00:00 [facility] Influenza Virus 2009-06-23 Completed [facility] Vaccine 00:00:00 [facility] Influenza Virus 2009-06-23 Completed [facility] Vaccine 00:00:00 [facility] Influenza Virus 2009-06-23 Completed [facility] Vaccine 00:00:00 [facility] Influenza Virus 2009-06-23 Completed [facility] Vaccine 00:00:00 [facility] Influenza Virus 2009-06-23 Completed [facility] Vaccine 00:00:00 [facility] Influenza Virus 2009-06-23 Completed [facility] Vaccine 00:00:00 [facility] Influenza Virus 2009-06-23 Completed [facility] Vaccine 00:00:00 [facility] Influenza Virus 2009-06-23 Completed [facility] Vaccine 00:00:00 [facility] Influenza Virus 2009-06-23 Completed [facility] Vaccine 00:00:00 [facility] Influenza Virus 2009-06-23 Completed [facility] Vaccine 00:00:00 [facility] Influenza Virus 2009-06-23 Completed [facility] Vaccine 00:00:00 [facility] Influenza Virus 2009-06-23 Completed [facility] Vaccine 00:00:00 [facility] Influenza Virus 2009-06-23 Completed [facility] Vaccine 00:00:00 [facility] Influenza Virus 2009-06-23 Completed [facility] Vaccine 00:00:00 [facility] Influenza Virus 2009-06-23 Completed [facility] Vaccine 00:00:00 [facility] Influenza Virus 2009-06-23 Completed [facility] Vaccine 00:00:00 [facility] Influenza Virus 2009-06-23 Completed [facility] Vaccine 00:00:00 [facility] Influenza Virus 2009-06-23 Completed [facility] Vaccine 00:00:00 [facility] Influenza Virus 2009-06-23 Completed [facility] Vaccine 00:00:00 [facility] Influenza Virus 2009-06-23 Completed [facility] Vaccine 00:00:00 [facility] Influenza Virus 2009-06-23 Completed [facility] Vaccine 00:00:00 [facility] Influenza Virus 2009-06-23 Completed [facility] Vaccine 00:00:00 [facility] Influenza Virus 2009-06-23 Completed [facility] Vaccine 00:00:00 [facility] Influenza Virus 2009-06-23 Completed [facility] Vaccine 00:00:00 [facility] Influenza Virus 2009-06-23 Completed [facility] Vaccine 00:00:00 [facility] Influenza Virus 2009-06-23 Completed [facility] Vaccine 00:00:00 [facility] Influenza Virus 2009-06-23 Completed [facility] Vaccine 00:00:00 [facility] Influenza Virus 2009-06-23 Completed [facility] Vaccine 00:00:00 [facility] Influenza Virus 2009-06-23 Completed [facility] Vaccine 00:00:00 [facility] Influenza Virus 2009-06-23 Completed [facility] Vaccine 00:00:00 [facility] Influenza Virus 2009-06-23 Completed [facility] Vaccine 00:00:00 [facility] Influenza Virus 2009-06-23 Completed [facility] Vaccine 00:00:00 [facility] Influenza Virus 2009-06-23 Completed [facility] Vaccine 00:00:00 [facility] Influenza Virus 2009-06-23 Completed [facility] Vaccine 00:00:00 [facility] Influenza Virus 2009-06-23 Completed [facility] Vaccine 00:00:00 [facility] Influenza Virus 2009-06-23 Completed [facility] Vaccine 00:00:00 [facility] Influenza Virus 2009-05-20 Completed [facility] Vaccine 00:00:00 [facility] Influenza Virus 2009-05-20 Completed [facility] Vaccine 00:00:00 [facility] Influenza Virus 2009-05-20 Completed [facility] Vaccine 00:00:00 [facility] Influenza Virus 2009-05-20 Completed [facility] Vaccine 00:00:00 [facility] Influenza Virus 2009-05-20 Completed [facility] Vaccine 00:00:00 [facility] Influenza Virus 2009-05-20 Completed [facility] Vaccine 00:00:00 [facility] Influenza Virus 2009-05-20 Completed [facility] Vaccine 00:00:00 [facility] Influenza Virus 2009-05-20 Completed [facility] Vaccine 00:00:00 [facility] Influenza Virus 2009-05-20 Completed [facility] Vaccine 00:00:00 [facility] Influenza Virus 2009-05-20 Completed [facility] Vaccine 00:00:00 [facility] Influenza Virus 2009-05-20 Completed [facility] Vaccine 00:00:00 [facility] Influenza Virus 2009-05-20 Completed [facility] Vaccine 00:00:00 [facility] Influenza Virus 2009-05-20 Completed [facility] Vaccine 00:00:00 [facility] Influenza Virus 2009-05-20 Completed [facility] Vaccine 00:00:00 [facility] Influenza Virus 2009-05-20 Completed [facility] Vaccine 00:00:00 [facility] Influenza Virus 2009-05-20 Completed [facility] Vaccine 00:00:00 [facility] Influenza Virus 2009-05-20 Completed [facility] Vaccine 00:00:00 [facility] Influenza Virus 2009-05-20 Completed [facility] Vaccine 00:00:00 [facility] Influenza Virus 2009-05-20 Completed [facility] Vaccine 00:00:00 [facility] Influenza Virus 2009-05-20 Completed [facility] Vaccine 00:00:00 [facility] Influenza Virus 2009-05-20 Completed [facility] Vaccine 00:00:00 [facility] Influenza Virus 2009-05-20 Completed [facility] Vaccine 00:00:00 [facility] Influenza Virus 2009-05-20 Completed [facility] Vaccine 00:00:00 [facility] Influenza Virus 2009-05-20 Completed [facility] Vaccine 00:00:00 [facility] Influenza Virus 2009-05-20 Completed [facility] Vaccine 00:00:00 [facility] Influenza Virus 2009-05-20 Completed [facility] Vaccine 00:00:00 [facility] Influenza Virus 2009-05-20 Completed [facility] Vaccine 00:00:00 [facility] Influenza Virus 2009-05-20 Completed [facility] Vaccine 00:00:00 [facility] Influenza Virus 2009-05-20 Completed [facility] Vaccine 00:00:00 [facility] Influenza Virus 2009-05-20 Completed [facility] Vaccine 00:00:00 [facility] Influenza Virus 2009-05-20 Completed [facility] Vaccine 00:00:00 [facility] Influenza Virus 2009-05-20 Completed [facility] Vaccine 00:00:00 [facility] Influenza Virus 2009-05-20 Completed [facility] Vaccine 00:00:00 [facility] Influenza Virus 2009-05-20 Completed [facility] Vaccine 00:00:00 [facility] Influenza Virus 2009-05-20 Completed [facility] Vaccine 00:00:00 [facility] Influenza Virus 2009-05-20 Completed [facility] Vaccine 00:00:00 [facility] Influenza Virus 2009-05-20 Completed [facility] Vaccine 00:00:00 [facility] Influenza Virus 2009-05-20 Completed [facility] Vaccine 00:00:00 [facility] Influenza Virus 2007-06-01 Completed [facility] Vaccine 00:00:00 [facility] Influenza Virus 2007-06-01 Completed [facility] Vaccine 00:00:00 [facility] Influenza Virus 2007-06-01 Completed [facility] Vaccine 00:00:00 [facility] Influenza Virus 2007-06-01 Completed [facility] Vaccine 00:00:00 [facility] Influenza Virus 2007-06-01 Completed [facility] Vaccine 00:00:00 [facility] Influenza Virus 2007-06-01 Completed [facility] Vaccine 00:00:00 [facility] Influenza Virus 2007-06-01 Completed [facility] Vaccine 00:00:00 [facility] Influenza Virus 2007-06-01 Completed [facility] Vaccine 00:00:00 [facility] Influenza Virus 2007-06-01 Completed [facility] Vaccine 00:00:00 [facility] Influenza Virus 2007-06-01 Completed [facility] Vaccine 00:00:00 [facility] Influenza Virus 2007-06-01 Completed [facility] Vaccine 00:00:00 [facility] Influenza Virus 2007-06-01 Completed [facility] Vaccine 00:00:00 [facility] Influenza Virus 2007-06-01 Completed [facility] Vaccine 00:00:00 [facility] Influenza Virus 2007-06-01 Completed [facility] Vaccine 00:00:00 [facility] Influenza Virus 2007-06-01 Completed [facility] Vaccine 00:00:00 [facility] Influenza Virus 2007-06-01 Completed [facility] Vaccine 00:00:00 [facility] Influenza Virus 2007-06-01 Completed [facility] Vaccine 00:00:00 [facility] Influenza Virus 2007-06-01 Completed [facility] Vaccine 00:00:00 [facility] Influenza Virus 2007-06-01 Completed [facility] Vaccine 00:00:00 [facility] Influenza Virus 2007-06-01 Completed [facility] Vaccine 00:00:00 [facility] Influenza Virus 2007-06-01 Completed [facility] Vaccine 00:00:00 [facility] Influenza Virus 2007-06-01 Completed [facility] Vaccine 00:00:00 [facility] Influenza Virus 2007-06-01 Completed [facility] Vaccine 00:00:00 [facility] Influenza Virus 2007-06-01 Completed [facility] Vaccine 00:00:00 [facility] Influenza Virus 2007-06-01 Completed [facility] Vaccine 00:00:00 [facility] Influenza Virus 2007-06-01 Completed [facility] Vaccine 00:00:00 [facility] Influenza Virus 2007-06-01 Completed [facility] Vaccine 00:00:00 [facility] Influenza Virus 2007-06-01 Completed [facility] Vaccine 00:00:00 [facility] Influenza Virus 2007-06-01 Completed [facility] Vaccine 00:00:00 [facility] Influenza Virus 2007-06-01 Completed [facility] Vaccine 00:00:00 [facility] Influenza Virus 2007-06-01 Completed [facility] Vaccine 00:00:00 [facility] Influenza Virus 2007-06-01 Completed [facility] Vaccine 00:00:00 [facility] Influenza Virus 2007-06-01 Completed [facility] Vaccine 00:00:00 [facility] Influenza Virus 2007-06-01 Completed [facility] Vaccine 00:00:00 [facility] Influenza Virus 2007-06-01 Completed [facility] Vaccine 00:00:00 [facility] Influenza Virus 2007-06-01 Completed [facility] Vaccine 00:00:00 [facility] Influenza Virus 2007-06-01 Completed [facility] Vaccine 00:00:00 [facility] Influenza Virus 2007-06-01 Completed [facility] Vaccine 00:00:00 [facility] DTAP 2006-05-24 Completed [facility] of 00:00:00 [facility] Proquad 2006-05-24 Completed [facility] of (MMR/VARICELLA) 00:00:00 [facility] Polio (IPV/OPV) 2006-05-24 Completed [facility] 00:00:00 [facility] DTAP 2006-05-24 Completed [facility] 00:00:00 [facility] Proquad 2006-05-24 Completed [facility] (MMR/VARICELLA) 00:00:00 [facility] Polio (IPV/OPV) 2006-05-24 Completed [facility] 00:00:00 [facility] DTAP 2006-05-24 Completed [facility] 00:00:00 [facility] Proquad 2006-05-24 Completed [facility] of (MMR/VARICELLA) 00:00:00 [facility] Polio (IPV/OPV) 2006-05-24 Completed [facility] 00:00:00 [facility] DTAP 2006-05-24 Completed [facility] 00:00:00 [facility] Proquad 2006-05-24 Completed [facility] (MMR/VARICELLA) 00:00:00 [facility] Polio (IPV/OPV) 2006-05-24 Completed [facility] 00:00:00 [facility] DTAP 2006-05-24 Completed [facility] 00:00:00 [facility] Proquad 2006-05-24 Completed [facility] (MMR/VARICELLA) 00:00:00 [facility] Polio (IPV/OPV) 2006-05-24 Completed [facility] 00:00:00 [facility] DTAP 2006-05-24 Completed [facility] 00:00:00 [facility] Proquad 2006-05-24 Completed [facility] of (MMR/VARICELLA) 00:00:00 [facility] Polio (IPV/OPV) 2006-05-24 Completed [facility] 00:00:00 [facility] DTAP 2006-05-24 Completed [facility] of 00:00:00 [facility] Proquad 2006-05-24 Completed [facility] of (MMR/VARICELLA) 00:00:00 [facility] Polio (IPV/OPV) 2006-05-24 Completed [facility] 00:00:00 [facility] DTAP 2006-05-24 Completed [facility] of 00:00:00 [facility] Proquad 2006-05-24 Completed [facility] of (MMR/VARICELLA) 00:00:00 [facility] Polio (IPV/OPV) 2006-05-24 Completed [facility] 00:00:00 [facility] DTAP 2006-05-24 Completed [facility] 00:00:00 [facility] Proquad 2006-05-24 Completed [facility] of (MMR/VARICELLA) 00:00:00 [facility] Polio (IPV/OPV) 2006-05-24 Completed [facility] 00:00:00 [facility] DTAP 2006-05-24 Completed [facility] of 00:00:00 [facility] Proquad 2006-05-24 Completed [facility] of (MMR/VARICELLA) 00:00:00 [facility] Polio (IPV/OPV) 2006-05-24 Completed [facility] 00:00:00 [facility] DTAP 2006-05-24 Completed [facility] 00:00:00 [facility] Proquad 2006-05-24 Completed [facility] of (MMR/VARICELLA) 00:00:00 [facility] Polio (IPV/OPV) 2006-05-24 Completed [facility] 00:00:00 [facility] DTAP 2006-05-24 Completed [facility] of 00:00:00 [facility] Proquad 2006-05-24 Completed [facility] of (MMR/VARICELLA) 00:00:00 [facility] Polio (IPV/OPV) 2006-05-24 Completed [facility] 00:00:00 [facility] DTAP 2006-05-24 Completed [facility] of 00:00:00 [facility] Proquad 2006-05-24 Completed [facility] (MMR/VARICELLA) 00:00:00 [facility] Polio (IPV/OPV) 2006-05-24 Completed [facility] 00:00:00 [facility] DTAP 2006-05-24 Completed [facility] 00:00:00 [facility] Proquad 2006-05-24 Completed [facility] of (MMR/VARICELLA) 00:00:00 [facility] Polio (IPV/OPV) 2006-05-24 Completed [facility] 00:00:00 [facility] DTAP 2006-05-24 Completed [facility] 00:00:00 [facility] Proquad 2006-05-24 Completed [facility] (MMR/VARICELLA) 00:00:00 [facility] Polio (IPV/OPV) 2006-05-24 Completed [facility] 00:00:00 [facility] DTAP 2006-05-24 Completed [facility] of 00:00:00 [facility] Proquad 2006-05-24 Completed [facility] of (MMR/VARICELLA) 00:00:00 [facility] Polio (IPV/OPV) 2006-05-24 Completed [facility] 00:00:00 [facility] DTAP 2006-05-24 Completed [facility] 00:00:00 [facility] Proquad 2006-05-24 Completed [facility] (MMR/VARICELLA) 00:00:00 [facility] Polio (IPV/OPV) 2006-05-24 Completed [facility] 00:00:00 [facility] DTAP 2006-05-24 Completed [facility] 00:00:00 [facility] Proquad 2006-05-24 Completed [facility] of (MMR/VARICELLA) 00:00:00 [facility] Polio (IPV/OPV) 2006-05-24 Completed [facility] 00:00:00 [facility] DTAP 2006-05-24 Completed [facility] 00:00:00 [facility] Proquad 2006-05-24 Completed [facility] of (MMR/VARICELLA) 00:00:00 [facility] Polio (IPV/OPV) 2006-05-24 Completed [facility] 00:00:00 [facility] DTAP 2006-05-24 Completed [facility] 00:00:00 [facility] Proquad 2006-05-24 Completed [facility] of (MMR/VARICELLA) 00:00:00 [facility] Polio (IPV/OPV) 2006-05-24 Completed [facility] 00:00:00 [facility] DTAP 2006-05-24 Completed [facility] of 00:00:00 [facility] Proquad 2006-05-24 Completed [facility] of (MMR/VARICELLA) 00:00:00 [facility] Polio (IPV/OPV) 2006-05-24 Completed [facility] 00:00:00 [facility] DTAP 2006-05-24 Completed [facility] 00:00:00 [facility] Proquad 2006-05-24 Completed [facility] of (MMR/VARICELLA) 00:00:00 [facility] Polio (IPV/OPV) 2006-05-24 Completed [facility] 00:00:00 [facility] DTAP 2006-05-24 Completed [facility] of 00:00:00 [facility] Proquad 2006-05-24 Completed [facility] of (MMR/VARICELLA) 00:00:00 [facility] Polio (IPV/OPV) 2006-05-24 Completed [facility] 00:00:00 [facility] DTAP 2006-05-24 Completed [facility] 00:00:00 [facility] Proquad 2006-05-24 Completed [facility] of (MMR/VARICELLA) 00:00:00 [facility] Polio (IPV/OPV) 2006-05-24 Completed [facility] 00:00:00 [facility] DTAP 2006-05-24 Completed [facility] 00:00:00 [facility] Proquad 2006-05-24 Completed [facility] of (MMR/VARICELLA) 00:00:00 [facility] Polio (IPV/OPV) 2006-05-24 Completed [facility] 00:00:00 [facility] DTAP 2006-05-24 Completed [facility] 00:00:00 [facility] Proquad 2006-05-24 Completed [facility] of (MMR/VARICELLA) 00:00:00 [facility] Polio (IPV/OPV) 2006-05-24 Completed [facility] 00:00:00 [facility] DTAP 2006-05-24 Completed [facility] 00:00:00 [facility] Proquad 2006-05-24 Completed [facility] of (MMR/VARICELLA) 00:00:00 [facility] Polio (IPV/OPV) 2006-05-24 Completed [facility] 00:00:00 [facility] DTAP 2006-05-24 Completed [facility] of 00:00:00 [facility] Proquad 2006-05-24 Completed [facility] of (MMR/VARICELLA) 00:00:00 [facility] Polio (IPV/OPV) 2006-05-24 Completed [facility] 00:00:00 [facility] DTAP 2006-05-24 Completed [facility] 00:00:00 [facility] Proquad 2006-05-24 Completed [facility] of (MMR/VARICELLA) 00:00:00 [facility] Polio (IPV/OPV) 2006-05-24 Completed [facility] 00:00:00 [facility] DTAP 2006-05-24 Completed [facility] 00:00:00 [facility] Proquad 2006-05-24 Completed [facility] of (MMR/VARICELLA) 00:00:00 [facility] Polio (IPV/OPV) 2006-05-24 Completed [facility] 00:00:00 [facility] DTAP 2006-05-24 Completed [facility] of 00:00:00 [facility] Proquad 2006-05-24 Completed [facility] of (MMR/VARICELLA) 00:00:00 [facility] Polio (IPV/OPV) 2006-05-24 Completed [facility] 00:00:00 [facility] DTAP 2006-05-24 Completed [facility] of 00:00:00 [facility] Proquad 2006-05-24 Completed [facility] of (MMR/VARICELLA) 00:00:00 [facility] Polio (IPV/OPV) 2006-05-24 Completed [facility] 00:00:00 [facility] DTAP 2006-05-24 Completed [facility] of 00:00:00 [facility] Proquad 2006-05-24 Completed [facility] of (MMR/VARICELLA) 00:00:00 [facility] Polio (IPV/OPV) 2006-05-24 Completed [facility] 00:00:00 [facility] DTAP 2006-05-24 Completed [facility] of 00:00:00 [facility] Proquad 2006-05-24 Completed [facility] of (MMR/VARICELLA) 00:00:00 [facility] Polio (IPV/OPV) 2006-05-24 Completed [facility] 00:00:00 [facility] DTAP 2006-05-24 Completed [facility] of 00:00:00 [facility] Proquad 2006-05-24 Completed [facility] of (MMR/VARICELLA) 00:00:00 [facility] Polio (IPV/OPV) 2006-05-24 Completed [facility] 00:00:00 [facility] DTAP 2006-05-24 Completed [facility] of 00:00:00 [facility] Proquad 2006-05-24 Completed [facility] of (MMR/VARICELLA) 00:00:00 [facility] Polio (IPV/OPV) 2006-05-24 Completed [facility] 00:00:00 [facility] DTAP 2006-05-24 Completed [facility] of 00:00:00 [facility] Proquad 2006-05-24 Completed [facility] of (MMR/VARICELLA) 00:00:00 [facility] Polio (IPV/OPV) 2006-05-24 Completed [facility] 00:00:00 [facility] DTAP 2006-05-24 Completed [facility] of 00:00:00 [facility] Proquad 2006-05-24 Completed [facility] of (MMR/VARICELLA) 00:00:00 [facility] Polio (IPV/OPV) 2006-05-24 Completed [facility] 00:00:00 [facility] HEPATITIS A 2005-05-19 Completed [facility] of 00:00:00 [facility] Influenza Virus 2005-05-19 Completed [facility] Vaccine 00:00:00 [facility] HEPATITIS A 2005-05-19 Completed [facility] of 00:00:00 [facility] Influenza Virus 2005-05-19 Completed [facility] Vaccine 00:00:00 [facility] HEPATITIS A 2005-05-19 Completed [facility] of 00:00:00 [facility] Influenza Virus 2005-05-19 Completed [facility] Vaccine 00:00:00 [facility] HEPATITIS A 2005-05-19 Completed [facility] of 00:00:00 [facility] Influenza Virus 2005-05-19 Completed [facility] Vaccine 00:00:00 [facility] HEPATITIS A 2005-05-19 Completed [facility] of 00:00:00 [facility] Influenza Virus 2005-05-19 Completed [facility] Vaccine 00:00:00 [facility] HEPATITIS A 2005-05-19 Completed [facility] of 00:00:00 [facility] Influenza Virus 2005-05-19 Completed [facility] Vaccine 00:00:00 [facility] HEPATITIS A 2005-05-19 Completed [facility] of 00:00:00 [facility] Influenza Virus 2005-05-19 Completed [facility] Vaccine 00:00:00 [facility] HEPATITIS A 2005-05-19 Completed [facility] of 00:00:00 [facility] Influenza Virus 2005-05-19 Completed [facility] Vaccine 00:00:00 [facility] HEPATITIS A 2005-05-19 Completed [facility] of 00:00:00 [facility] Influenza Virus 2005-05-19 Completed [facility] Vaccine 00:00:00 [facility] HEPATITIS A 2005-05-19 Completed [facility] of 00:00:00 [facility] Influenza Virus 2005-05-19 Completed [facility] Vaccine 00:00:00 [facility] HEPATITIS A 2005-05-19 Completed [facility] of 00:00:00 [facility] Influenza Virus 2005-05-19 Completed [facility] Vaccine 00:00:00 [facility] HEPATITIS A 2005-05-19 Completed [facility] of 00:00:00 [facility] Influenza Virus 2005-05-19 Completed [facility] Vaccine 00:00:00 [facility] HEPATITIS A 2005-05-19 Completed [facility] of 00:00:00 [facility] Influenza Virus 2005-05-19 Completed [facility] Vaccine 00:00:00 [facility] HEPATITIS A 2005-05-19 Completed [facility] of 00:00:00 [facility] Influenza Virus 2005-05-19 Completed [facility] Vaccine 00:00:00 [facility] HEPATITIS A 2005-05-19 Completed [facility] of 00:00:00 [facility] Influenza Virus 2005-05-19 Completed [facility] Vaccine 00:00:00 [facility] HEPATITIS A 2005-05-19 Completed [facility] of 00:00:00 [facility] Influenza Virus 2005-05-19 Completed [facility] Vaccine 00:00:00 [facility] HEPATITIS A 2005-05-19 Completed [facility] of 00:00:00 [facility] Influenza Virus 2005-05-19 Completed [facility] Vaccine 00:00:00 [facility] HEPATITIS A 2005-05-19 Completed [facility] 00:00:00 [facility] Influenza Virus 2005-05-19 Completed [facility] Vaccine 00:00:00 [facility] HEPATITIS A 2005-05-19 Completed [facility] of 00:00:00 [facility] Influenza Virus 2005-05-19 Completed [facility] Vaccine 00:00:00 [facility] HEPATITIS A 2005-05-19 Completed [facility] of 00:00:00 [facility] Influenza Virus 2005-05-19 Completed [facility] Vaccine 00:00:00 [facility] HEPATITIS A 2005-05-19 Completed [facility] of 00:00:00 [facility] Influenza Virus 2005-05-19 Completed [facility] Vaccine 00:00:00 [facility] HEPATITIS A 2005-05-19 Completed [facility] of 00:00:00 [facility] Influenza Virus 2005-05-19 Completed [facility] Vaccine 00:00:00 [facility] HEPATITIS A 2005-05-19 Completed [facility] 00:00:00 [facility] Influenza Virus 2005-05-19 Completed [facility] Vaccine 00:00:00 [facility] HEPATITIS A 2005-05-19 Completed [facility] of 00:00:00 [facility] Influenza Virus 2005-05-19 Completed [facility] Vaccine 00:00:00 [facility] HEPATITIS A 2005-05-19 Completed [facility] of 00:00:00 [facility] Influenza Virus 2005-05-19 Completed [facility] Vaccine 00:00:00 [facility] HEPATITIS A 2005-05-19 Completed [facility] of 00:00:00 [facility] Influenza Virus 2005-05-19 Completed [facility] Vaccine 00:00:00 [facility] HEPATITIS A 2005-05-19 Completed [facility] 00:00:00 [facility] [facility] Influenza Virus 2005-05-19 Completed [facility] Vaccine 00:00:00 [facility] HEPATITIS A 2005-05-19 Completed [facility] 00:00:00 [facility] Influenza Virus 2005-05-19 Completed [facility] Vaccine 00:00:00 [facility] HEPATITIS A 2005-05-19 Completed [facility] 00:00:00 [facility] Influenza Virus 2005-05-19 Completed [facility] Vaccine 00:00:00 [facility] HEPATITIS A 2005-05-19 Completed [facility] 00:00:00 [facility] Influenza Virus 2005-05-19 Completed [facility] Vaccine 00:00:00 [facility] HEPATITIS A 2005-05-19 Completed [facility] 00:00:00 [facility] Influenza Virus 2005-05-19 Completed [facility] Vaccine 00:00:00 [facility] HEPATITIS A 2005-05-19 Completed [facility] 00:00:00 [facility] Influenza Virus 2005-05-19 Completed [facility] Vaccine 00:00:00 [facility] HEPATITIS A 2005-05-19 Completed [facility] 00:00:00 [facility] Influenza Virus 2005-05-19 Completed [facility] Vaccine 00:00:00 [facility] HEPATITIS A 2005-05-19 Completed [facility] 00:00:00 [facility] Influenza Virus 2005-05-19 Completed [facility] Vaccine 00:00:00 [facility] HEPATITIS A 2005-05-19 Completed [facility] 00:00:00 [facility] Influenza Virus 2005-05-19 Completed [facility] Vaccine 00:00:00 [facility] HEPATITIS A 2005-05-19 Completed [facility] 00:00:00 [facility] Influenza Virus 2005-05-19 Completed [facility] Vaccine 00:00:00 [facility] HEPATITIS A 2005-05-19 Completed [facility] 00:00:00 [facility] Influenza Virus 2005-05-19 Completed [facility] Vaccine 00:00:00 [facility] HEPATITIS A 2005-05-19 Completed [facility] 00:00:00 [facility] Influenza Virus 2005-05-19 Completed [facility] Vaccine 00:00:00 [facility] HEPATITIS A 2004-05-17 Completed [facility] 00:00:00 [facility] HEPATITIS A 2004-05-17 Completed [facility] 00:00:00 [facility] HEPATITIS A 2004-05-17 Completed [facility] 00:00:00 [facility] HEPATITIS A 2004-05-17 Completed [facility] 00:00:00 [facility] HEPATITIS A 2004-05-17 Completed [facility] 00:00:00 [facility] HEPATITIS A 2004-05-17 Completed [facility] 00:00:00 [facility] HEPATITIS A 2004-05-17 Completed [facility] 00:00:00 [facility] HEPATITIS A 2004-05-17 Completed [facility] 00:00:00 [facility] HEPATITIS A 2004-05-17 Completed [facility] 00:00:00 [facility] HEPATITIS A 2004-05-17 Completed [facility] 00:00:00 [facility] HEPATITIS A 2004-05-17 Completed [facility] 00:00:00 [facility] HEPATITIS A 2004-05-17 Completed [facility] 00:00:00 [facility] HEPATITIS A 2004-05-17 Completed [facility] 00:00:00 [facility] HEPATITIS A 2004-05-17 Completed [facility] 00:00:00 [facility] HEPATITIS A 2004-05-17 Completed [facility] 00:00:00 [facility] HEPATITIS A 2004-05-17 Completed [facility] 00:00:00 [facility] HEPATITIS A 2004-05-17 Completed [facility] 00:00:00 [facility] HEPATITIS A 2004-05-17 Completed [facility] 00:00:00 [facility] HEPATITIS A 2004-05-17 Completed [facility] 00:00:00 [facility] HEPATITIS A 2004-05-17 Completed [facility] 00:00:00 [facility] HEPATITIS A 2004-05-17 Completed [facility] 00:00:00 [facility] HEPATITIS A 2004-05-17 Completed [facility] 00:00:00 [facility] HEPATITIS A 2004-05-17 Completed [facility] 00:00:00 [facility] HEPATITIS A 2004-05-17 Completed [facility] 00:00:00 [facility] HEPATITIS A 2004-05-17 Completed [facility] 00:00:00 [facility] HEPATITIS A 2004-05-17 Completed [facility] 00:00:00 [facility] HEPATITIS A 2004-05-17 Completed [facility] 00:00:00 [facility] HEPATITIS A 2004-05-17 Completed [facility] 00:00:00 [facility] HEPATITIS A 2004-05-17 Completed [facility] 00:00:00 [facility] HEPATITIS A 2004-05-17 Completed [facility] 00:00:00 [facility] HEPATITIS A 2004-05-17 Completed [facility] 00:00:00 [facility] HEPATITIS A 2004-05-17 Completed [facility] 00:00:00 [facility] HEPATITIS A 2004-05-17 Completed [facility] 00:00:00 [facility] HEPATITIS A 2004-05-17 Completed [facility] 00:00:00 [facility] HEPATITIS A 2004-05-17 Completed [facility] 00:00:00 [facility] HEPATITIS A 2004-05-17 Completed [facility] 00:00:00 [facility] HEPATITIS A 2004-05-17 Completed [facility] 00:00:00 [facility] HEPATITIS A 2004-05-17 Completed [facility] 00:00:00 [facility] Polio (IPV/OPV) 2003-08-21 Completed [facility] 00:00:00 [facility] Polio (IPV/OPV) 2003-08-21 Completed [facility] 00:00:00 [facility] Polio (IPV/OPV) 2003-08-21 Completed [facility] 00:00:00 [facility] Polio (IPV/OPV) 2003-08-21 Completed [facility] 00:00:00 [facility] Polio (IPV/OPV) 2003-08-21 Completed [facility] 00:00:00 [facility] Polio (IPV/OPV) 2003-08-21 Completed [facility] 00:00:00 [facility] Polio (IPV/OPV) 2003-08-21 Completed [facility] 00:00:00 [facility] Polio (IPV/OPV) 2003-08-21 Completed [facility] 00:00:00 [facility] Polio (IPV/OPV) 2003-08-21 Completed [facility] 00:00:00 [facility] Polio (IPV/OPV) 2003-08-21 Completed [facility] 00:00:00 [facility] Polio (IPV/OPV) 2003-08-21 Completed [facility] 00:00:00 [facility] Polio (IPV/OPV) 2003-08-21 Completed [facility] 00:00:00 [facility] Polio (IPV/OPV) 2003-08-21 Completed [facility] 00:00:00 [facility] Polio (IPV/OPV) 2003-08-21 Completed [facility] 00:00:00 [facility] Polio (IPV/OPV) 2003-08-21 Completed [facility] 00:00:00 [facility] Polio (IPV/OPV) 2003-08-21 Completed [facility] 00:00:00 [facility] Polio (IPV/OPV) 2003-08-21 Completed [facility] 00:00:00 [facility] Polio (IPV/OPV) 2003-08-21 Completed [facility] 00:00:00 [facility] Polio (IPV/OPV) 2003-08-21 Completed [facility] 00:00:00 [facility] Polio (IPV/OPV) 2003-08-21 Completed [facility] 00:00:00 [facility] Polio (IPV/OPV) 2003-08-21 Completed [facility] 00:00:00 [facility] Polio (IPV/OPV) 2003-08-21 Completed [facility] 00:00:00 [facility] Polio (IPV/OPV) 2003-08-21 Completed [facility] 00:00:00 [facility] Polio (IPV/OPV) 2003-08-21 Completed [facility] 00:00:00 [facility] HIB 4 Dose Schedule 2003-05-22 Completed Unive rsity of 00:00:00 [facility] MMR 2003-05-22 Completed [facility] 00:00:00 [facility] Pneumococcal 7 2003-05-22 Completed [facility] of Conjugate, PCV7 00:00:00 [facility] (Prevnar7) [facility] Varicella 2003-05-22 Completed [facility] of (varivax)(chicken 00:00:00 [place] [facility] pox) [facility] HIB 4 Dose Schedule 2003-05-22 Completed Unive rsity of 00:00:00 [facility] MMR 2003-05-22 Completed [facility] 00:00:00 [facility] Pneumococcal 7 2003-05-22 Completed [facility] Conjugate, PCV7 00:00:00 [facility] (Prevnar7) [facility] Varicella 2003-05-22 Completed [facility] (varivax)(chicken 00:00:00 [facility] pox) [facility] HIB 4 Dose Schedule 2003-05-22 Completed Unive rsity of 00:00:00 [facility] MMR 2003-05-22 Completed [facility] 00:00:00 [facility] Pneumococcal 7 2003-05-22 Completed [facility] of Conjugate, PCV7 00:00:00 [facility] (Prevnar7) [facility] Varicella 2003-05-22 Completed [facility] (varivax)(chicken 00:00:00 [place] [facility] pox) [facility] HIB 4 Dose Schedule 2003-05-22 Completed Unive rsity of 00:00:00 [facility] MMR 2003-05-22 Completed [facility] 00:00:00 [facility] Pneumococcal 7 2003-05-22 Completed [facility] Conjugate, PCV7 00:00:00 [place] [facility] (Prevnar7) [facility] Varicella 2003-05-22 Completed [facility] (varivax)(chicken 00:00:00 [place] [facility] pox) [facility] HIB 4 Dose Schedule 2003-05-22 Completed Unive rsity of 00:00:00 [facility] MMR 2003-05-22 Completed [facility] 00:00:00 [facility] Pneumococcal 7 2003-05-22 Completed [facility] of Conjugate, PCV7 00:00:00 [facility] (Prevnar7) [facility] Varicella 2003-05-22 Completed [facility] (varivax)(chicken 00:00:00 [place] [facility] pox) [facility] HIB 4 Dose Schedule 2003-05-22 Completed Unive rsity of 00:00:00 [facility] MMR 2003-05-22 Completed [facility] 00:00:00 [facility] Pneumococcal 7 2003-05-22 Completed [facility] of Conjugate, PCV7 00:00:00 [facility] (Prevnar7) [facility] Varicella 2003-05-22 Completed [facility] (varivax)(chicken 00:00:00 [place] [facility] pox) [facility] HIB 4 Dose Schedule 2003-05-22 Completed Unive rsity of 00:00:00 [facility] MMR 2003-05-22 Completed [facility] 00:00:00 [facility] Pneumococcal 7 2003-05-22 Completed [facility] of Conjugate, PCV7 00:00:00 [facility] (Prevnar7) [facility] Varicella 2003-05-22 Completed [facility] (varivax)(chicken 00:00:00 [place] [facility] pox) [facility] HIB 4 Dose Schedule 2003-05-22 Completed Unive rsity of 00:00:00 [facility] MMR 2003-05-22 Completed [facility] 00:00:00 [facility] Pneumococcal 7 2003-05-22 Completed [facility] of Conjugate, PCV7 00:00:00 [facility] (Prevnar7) [facility] Varicella 2003-05-22 Completed [facility] (varivax)(chicken 00:00:00 [place] [facility] pox) [facility] HIB 4 Dose Schedule 2003-05-22 Completed Unive rsity of 00:00:00 [facility] MMR 2003-05-22 Completed [facility] 00:00:00 [facility] Pneumococcal 7 2003-05-22 Completed [facility] Conjugate, PCV7 00:00:00 [place] [facility] (Prevnar7) [facility] Varicella 2003-05-22 Completed [facility] (varivax)(chicken 00:00:00 [place] [facility] pox) [facility] HIB 4 Dose Schedule 2003-05-22 Completed Unive rsity of 00:00:00 [facility] MMR 2003-05-22 Completed [facility] 00:00:00 [facility] Pneumococcal 7 2003-05-22 Completed [facility] of Conjugate, PCV7 00:00:00 [facility] (Prevnar7) [facility] Varicella 2003-05-22 Completed [facility] of (varivax)(chicken 00:00:00 [place] [facility] pox) [facility] HIB 4 Dose Schedule 2003-05-22 Completed Unive rsity of 00:00:00 [facility] MMR 2003-05-22 Completed [facility] of 00:00:00 [facility] Pneumococcal 7 2003-05-22 Completed [facility] of Conjugate, PCV7 00:00:00 [facility] (Prevnar7) [facility] Varicella 2003-05-22 Completed [facility] (varivax)(chicken 00:00:00 [place] [facility] pox) [facility] HIB 4 Dose Schedule 2003-05-22 Completed Unive rsity of 00:00:00 [facility] MMR 2003-05-22 Completed [facility] 00:00:00 [facility] Pneumococcal 7 2003-05-22 Completed [facility] of Conjugate, PCV7 00:00:00 [place] [facility] (Prevnar7) [facility] Varicella 2003-05-22 Completed [facility] (varivax)(chicken 00:00:00 [place] [facility] pox) [facility] HIB 4 Dose Schedule 2003-05-22 Completed Unive rsity of 00:00:00 [facility] MMR 2003-05-22 Completed [facility] of 00:00:00 [facility] Pneumococcal 7 2003-05-22 Completed [facility] of Conjugate, PCV7 00:00:00 [place] [facility] (Prevnar7) [facility] Varicella 2003-05-22 Completed [facility] of (varivax)(chicken 00:00:00 [place] [facility] pox) [facility] HIB 4 Dose Schedule 2003-05-22 Completed Unive rsity of 00:00:00 [facility] MMR 2003-05-22 Completed [facility] of 00:00:00 [facility] Pneumococcal 7 2003-05-22 Completed [facility] of Conjugate, PCV7 00:00:00 [place] [facility] (Prevnar7) [facility] Varicella 2003-05-22 Completed [facility] (varivax)(chicken 00:00:00 [place] [facility] pox) [facility] HIB 4 Dose Schedule 2003-05-22 Completed Unive rsity of 00:00:00 [facility] MMR 2003-05-22 Completed [facility] of 00:00:00 [facility] Pneumococcal 7 2003-05-22 Completed [facility] of Conjugate, PCV7 00:00:00 [place] [facility] (Prevnar7) [facility] Varicella 2003-05-22 Completed [facility] of (varivax)(chicken 00:00:00 [facility] edical pox) Branch HIB 4 Dose Schedule 2003-05-22 Completed Unive rsity of 00:00:00 [facility] MMR 2003-05-22 Completed [facility] of 00:00:00 [facility] Pneumococcal 7 2003-05-22 Completed [facility] of Conjugate, PCV7 00:00:00 [facility] (Prevnar7) [facility] Varicella 2003-05-22 Completed [facility] of (varivax)(chicken 00:00:00 [facility] ed[facility] pox) Branch HIB 4 Dose Schedule 2003-05-22 Completed Unive rsity of 00:00:00 [facility] MMR 2003-05-22 Completed [facility] of 00:00:00 [facility] Pneumococcal 7 2003-05-22 Completed [facility] of Conjugate, PCV7 00:00:00 [place] [facility] (Prevnar7) [facility] Varicella 2003-05-22 Completed [facility] of (varivax)(chicken 00:00:00 [facility] edical pox) Branch HIB 4 Dose Schedule 2003-05-22 Completed Unive rsity of 00:00:00 [facility] MMR 2003-05-22 Completed [facility] of 00:00:00 [facility] Pneumococcal 7 2003-05-22 Completed [facility] of Conjugate, PCV7 00:00:00 [facility] (Prevnar7) [facility] Varicella 2003-05-22 Completed [facility] (varivax)(chicken 00:00:00 [place] [facility] pox) [facility] HIB 4 Dose Schedule 2003-05-22 Completed Unive rsity of 00:00:00 [facility] MMR 2003-05-22 Completed [facility] of 00:00:00 [facility] Pneumococcal 7 2003-05-22 Completed [facility] of Conjugate, PCV7 00:00:00 [place] [facility] (Prevnar7) [facility] Varicella 2003-05-22 Completed [facility] (varivax)(chicken 00:00:00 [place] [facility] pox) [facility] HIB 4 Dose Schedule 2003-05-22 Completed Unive rsity of 00:00:00 [facility] MMR 2003-05-22 Completed [facility] of 00:00:00 [facility] Pneumococcal 7 2003-05-22 Completed [facility] of Conjugate, PCV7 00:00:00 [facility] (Prevnar7) [facility] Varicella 2003-05-22 Completed [facility] (varivax)(chicken 00:00:00 [place] [facility] pox) [facility] HIB 4 Dose Schedule 2003-05-22 Completed Unive rsity of 00:00:00 [facility] MMR 2003-05-22 Completed [facility] of 00:00:00 [facility] Pneumococcal 7 2003-05-22 Completed [facility] of Conjugate, PCV7 00:00:00 [facility] (Prevnar7) [facility] Varicella 2003-05-22 Completed [facility] of (varivax)(chicken 00:00:00 [place] [facility] pox) [facility] HIB 4 Dose Schedule 2003-05-22 Completed Unive rsity of 00:00:00 [facility] MMR 2003-05-22 Completed [facility] of 00:00:00 [facility] Pneumococcal 7 2003-05-22 Completed [facility] of Conjugate, PCV7 00:00:00 [place] [facility] (Prevnar7) [facility] Varicella 2003-05-22 Completed [facility] (varivax)(chicken 00:00:00 [place] [facility] pox) [facility] HIB 4 Dose Schedule 2003-05-22 Completed Unive rsity of 00:00:00 [facility] MMR 2003-05-22 Completed [facility] 00:00:00 [facility] Pneumococcal 7 2003-05-22 Completed [facility] of Conjugate, PCV7 00:00:00 [facility] (Prevnar7) [facility] Varicella 2003-05-22 Completed [facility] (varivax)(chicken 00:00:00 [place] [facility] pox) [facility] HIB 4 Dose Schedule 2003-05-22 Completed Unive rsity of 00:00:00 [facility] MMR 2003-05-22 Completed [facility] 00:00:00 [facility] Pneumococcal 7 2003-05-22 Completed [facility] of Conjugate, PCV7 00:00:00 [facility] (Prevnar7) [facility] Varicella 2003-05-22 Completed [facility] (varivax)(chicken 00:00:00 [facility] pox) [facility] DTAP 2003-01-01 Completed [facility] 00:00:00 [facility] HIB 4 Dose Schedule 2003-01-01 Completed Unive rsity of 00:00:00 [facility] Hep B, Adol or Pedi 2003-01-01 Completed Unive rsity of Dosage 00:00:00 [facility] Pneumococcal 7 2003-01-01 Completed [facility] of Conjugate, PCV7 00:00:00 [facility] (Prevnar7) [facility] DTAP 2003-01-01 Completed [facility] 00:00:00 [facility] HIB 4 Dose Schedule 2003-01-01 Completed Unive rsity of 00:00:00 [facility] Hep B, Adol or Pedi 2003-01-01 Completed Unive rsity of Dosage 00:00:00 [facility] Pneumococcal 7 2003-01-01 Completed [facility] of Conjugate, PCV7 00:00:00 [place] [facility] (Prevnar7) [facility] DTAP 2003-01-01 Completed [facility] 00:00:00 [facility] HIB 4 Dose Schedule 2003-01-01 Completed Unive rsity of 00:00:00 [facility] Hep B, Adol or Pedi 2003-01-01 Completed Unive rsity of Dosage 00:00:00 [facility] Pneumococcal 7 2003-01-01 Completed [facility] of Conjugate, PCV7 00:00:00 [place] [facility] (Prevnar7) [facility] DTAP 2003-01-01 Completed [facility] 00:00:00 [facility] HIB 4 Dose Schedule 2003-01-01 Completed Unive rsity of 00:00:00 [facility] Hep B, Adol or Pedi 2003-01-01 Completed Unive rsity of Dosage 00:00:00 [facility] Pneumococcal 7 2003-01-01 Completed [facility] of Conjugate, PCV7 00:00:00 [place] [facility] (Prevnar7) [facility] DTAP 2003-01-01 Completed [facility] 00:00:00 [facility] HIB 4 Dose Schedule 2003-01-01 Completed Unive rsity of 00:00:00 [facility] Hep B, Adol or Pedi 2003-01-01 Completed Unive rsity of Dosage 00:00:00 [facility] Pneumococcal 7 2003-01-01 Completed [facility] of Conjugate, PCV7 00:00:00 [place] [facility] (Prevnar7) [facility] DTAP 2003-01-01 Completed [facility] 00:00:00 [facility] HIB 4 Dose Schedule 2003-01-01 Completed Unive rsity of 00:00:00 [facility] Hep B, Adol or Pedi 2003-01-01 Completed Unive rsity of Dosage 00:00:00 [facility] Pneumococcal 7 2003-01-01 Completed [facility] of Conjugate, PCV7 00:00:00 [place] [facility] (Prevnar7) [facility] DTAP 2003-01-01 Completed [facility] 00:00:00 [facility] HIB 4 Dose Schedule 2003-01-01 Completed Unive rsity of 00:00:00 [facility] Hep B, Adol or Pedi 2003-01-01 Completed Unive rsity of Dosage 00:00:00 [facility] Pneumococcal 7 2003-01-01 Completed [facility] of Conjugate, PCV7 00:00:00 [place] [facility] (Prevnar7) [facility] DTAP 2003-01-01 Completed [facility] 00:00:00 [facility] HIB 4 Dose Schedule 2003-01-01 Completed Unive rsity of 00:00:00 [facility] Hep B, Adol or Pedi 2003-01-01 Completed Unive rsity of Dosage 00:00:00 [facility] Pneumococcal 7 2003-01-01 Completed [facility] Conjugate, PCV7 00:00:00 [place] [facility] (Prevnar7) [facility] DTAP 2003-01-01 Completed [facility] 00:00:00 [facility] HIB 4 Dose Schedule 2003-01-01 Completed Unive rsity of 00:00:00 [facility] Hep B, Adol or Pedi 2003-01-01 Completed Unive rsity of Dosage 00:00:00 [facility] Pneumococcal 7 2003-01-01 Completed [facility] of Conjugate, PCV7 00:00:00 [place] [facility] (Prevnar7) [facility] DTAP 2003-01-01 Completed [facility] 00:00:00 [facility] HIB 4 Dose Schedule 2003-01-01 Completed Unive rsity of 00:00:00 [facility] Hep B, Adol or Pedi 2003-01-01 Completed Unive rsity of Dosage 00:00:00 [facility] Pneumococcal 7 2003-01-01 Completed [facility] of Conjugate, PCV7 00:00:00 [place] [facility] (Prevnar7) [facility] DTAP 2003-01-01 Completed [facility] 00:00:00 [facility] HIB 4 Dose Schedule 2003-01-01 Completed Unive rsity of 00:00:00 [facility] Hep B, Adol or Pedi 2003-01-01 Completed Unive rsity of Dosage 00:00:00 [facility] Pneumococcal 7 2003-01-01 Completed [facility] of Conjugate, PCV7 00:00:00 [place] [facility] (Prevnar7) [facility] DTAP 2003-01-01 Completed [facility] 00:00:00 [facility] HIB 4 Dose Schedule 2003-01-01 Completed Unive rsity of 00:00:00 [facility] Hep B, Adol or Pedi 2003-01-01 Completed Unive rsity of Dosage 00:00:00 [facility] Pneumococcal 7 2003-01-01 Completed [facility] of Conjugate, PCV7 00:00:00 [place] [facility] (Prevnar7) [facility] DTAP 2003-01-01 Completed [facility] 00:00:00 [facility] HIB 4 Dose Schedule 2003-01-01 Completed Unive rsity of 00:00:00 [facility] Hep B, Adol or Pedi 2003-01-01 Completed Unive rsity of Dosage 00:00:00 [facility] Pneumococcal 7 2003-01-01 Completed [facility] of Conjugate, PCV7 00:00:00 [place] [facility] (Prevnar7) [facility] DTAP 2003-01-01 Completed [facility] 00:00:00 [facility] HIB 4 Dose Schedule 2003-01-01 Completed Unive rsity of 00:00:00 [facility] Hep B, Adol or Pedi 2003-01-01 Completed Unive rsity of Dosage 00:00:00 [facility] Pneumococcal 7 2003-01-01 Completed [facility] Conjugate, PCV7 00:00:00 [facility] (Prevnar7) [facility] DTAP 2003-01-01 Completed [facility] 00:00:00 [facility] HIB 4 Dose Schedule 2003-01-01 Completed [facility] 00:00:00 [facility] Hep B, Adol or Pedi 2003-01-01 Completed [facility] Dosage 00:00:00 [facility] Pneumococcal 7 2003-01-01 Completed [facility] Conjugate, PCV7 00:00:00 [place] [facility] (Pre[facility]ar[facility] DTAP 2003-01-01 Completed [facility] 00:00:00 [facility] HIB 4 Dose Schedule 2003-01-01 Completed [facility] 00:00:00 [facility] Hep B, Adol or Pedi 2003-01-01 Completed [facility] Dosage 00:00:00 [facility] Pneumococcal 7 2003-01-01 Completed [facility] Conjugate, PCV7 00:00:00 [place] [facility] (Prevnar7) [facility] DTAP 2003-01-01 Completed [facility] 00:00:00 [facility] HIB 4 Dose Schedule 2003-01-01 Completed [facility] 00:00:00 [facility] Hep B, Adol or Pedi 2003-01-01 Completed [facility] Dosage 00:00:00 [facility] Pneumococcal 7 2003-01-01 Completed [facility] Conjugate, PCV7 00:00:00 [place] [facility] (Prevnar7) [facility] DTAP 2003-01-01 Completed [facility] 00:00:00 [facility] HIB 4 Dose Schedule 2003-01-01 Completed [facility] 00:00:00 [facility] Hep B, Adol or Pedi 2003-01-01 Completed [facility] Dosage 00:00:00 [facility] Pneumococcal 7 2003-01-01 Completed [facility] Conjugate, PCV7 00:00:00 [place] [facility] (Prevnar7) [facility] DTAP 2003-01-01 Completed [facility] 00:00:00 [facility] HIB 4 Dose Schedule 2003-01-01 Completed [facility] 00:00:00 [facility] Hep B, Adol or Pedi 2003-01-01 Completed [facility] Dosage 00:00:00 [facility] Pneumococcal 7 2003-01-01 Completed [facility] Conjugate, PCV7 00:00:00 [place] [facility] (Prevnar7) [facility] DTAP 2003-01-01 Completed [facility] 00:00:00 [facility] HIB 4 Dose Schedule 2003-01-01 Completed [facility] 00:00:00 [facility] Hep B, Adol or Pedi 2003-01-01 Completed [facility] Dosage 00:00:00 [facility] Pneumococcal 7 2003-01-01 Completed [facility] Conjugate, PCV7 00:00:00 [facility] (Prevnar7[facility] DTAP 2003-01-01 Completed [facility] 00:00:00 [facility] HIB 4 Dose Schedule 2003-01-01 Completed [facility] 00:00:00 [facility] Hep B, Adol or Pedi 2003-01-01 Completed [facility] Dosage 00:00:00 [facility] Pneumococcal 7 2003-01-01 Completed [facility] Conjugate, PCV7 00:00:00 [facility] (Prevnar7) [facility] DTAP 2003-01-01 Completed [facility] 00:00:00 [facility] HIB 4 Dose Schedule 2003-01-01 Completed [facility] 00:00:00 [facility] Hep B, Adol or Pedi 2003-01-01 Completed [facility] Dosage 00:00:00 [facility] Pneumococcal 7 2003-01-01 Completed [facility] Conjugate, PCV7 00:00:00 [facility] (Prevnar7) [facility] DTAP 2003-01-01 Completed [facility] 00:00:00 [facility] HIB 4 Dose Schedule 2003-01-01 Completed [facility] 00:00:00 [facility] Hep B, Adol or Pedi 2003-01-01 Completed [facility] Dosage 00:00:00 [facility] Pneumococcal 7 2003-01-01 Completed [facility] Conjugate, PCV7 00:00:00 [facility] (Prevnar7) [facility] DTAP 2003-01-01 Completed [facility] 00:00:00 [facility] HIB 4 Dose Schedule 2003-01-01 Completed [facility] of 00:00:00 [facility] Hep B, Adol or Pedi 2003-01-01 Completed [facility] Dosage 00:00:00 [facility] Pneumococcal 7 2003-01-01 Completed [facility] Conjugate, PCV7 00:00:00 [facility] (Prevnar7) [facility] DTAP 2002 Completed [facility] 00:00:00 [facility] HIB 4 Dose Schedule 2002 Completed [facility] 00:00:00 [facility] Pneumococcal 7 2002 Completed [facility] Conjugate, PCV7 00:00:00 [place] [facility] (Prevnar7[facility] Polio (IPV/OPV) 2002 Completed [facility] 00:00:00 [facility] DTAP 2002 Completed [facility] 00:00:00 [facility] HIB 4 Dose Schedule 2002 Completed [facility] of 00:00:00 [facility] Pneumococcal 7 2002 Completed [facility] Conjugate, PCV7 00:00:00 [facility] (Prevnar7[facility] Polio (IPV/OPV) 2002 Completed [facility] 00:00:00 [facility] DTAP 2002 Completed [facility] 00:00:00 [facility] HIB 4 Dose Schedule 2002 Completed [facility] 00:00:00 [facility] Pneumococcal 7 2002 Completed [facility] Conjugate, PCV7 00:00:00 [facility] (Prevnar7) [facility] Polio (IPV/OPV) 2002 Completed [facility] 00:00:00 [facility] DTAP 2002 Completed [facility] 00:00:00 [facility] HIB 4 Dose Schedule 2002 Completed [facility] 00:00:00 [facility] Pneumococcal 7 2002 Completed [facility] Conjugate, PCV7 00:00:00 [facility] (Prevnar7) [facility] Polio (IPV/OPV) 2002 Completed [facility] 00:00:00 [facility] DTAP 2002 Completed [facility] 00:00:00 [facility] HIB 4 Dose Schedule 2002 Completed [facility] of 00:00:00 [facility] Pneumococcal 7 2002 Completed [facility] Conjugate, PCV7 00:00:00 [facility] (Prevnar7) [facility] Polio (IPV/OPV) 2002 Completed [facility] 00:00:00 [facility] DTAP 2002 Completed [facility] 00:00:00 [facility] HIB 4 Dose Schedule 2002 Completed [facility] 00:00:00 [facility] Pneumococcal 7 2002 Completed [facility] Conjugate, PCV7 00:00:00 [facility] (Prevnar7) [facility] Polio (IPV/OPV) 2002 Completed [facility] 00:00:00 [facility] DTAP 2002 Completed [facility] 00:00:00 [facility] HIB 4 Dose Schedule 2002 Completed [facility] 00:00:00 [facility] Pneumococcal 7 2002 Completed [facility] Conjugate, PCV7 00:00:00 [facility] (Prevnar7) [facility] Polio (IPV/OPV) 2002 Completed [facility] 00:00:00 [facility] DTAP 2002 Completed [facility] 00:00:00 [facility] HIB 4 Dose Schedule 2002 Completed [facility] 00:00:00 [facility] Pneumococcal 7 2002 Completed [facility] Conjugate, PCV7 00:00:00 [facility] (Prevnar7) [facility] Polio (IPV/OPV) 2002 Completed [facility] 00:00:00 [facility] DTAP 2002 Completed [facility] 00:00:00 [facility] HIB 4 Dose Schedule 2002 Completed [facility] 00:00:00 [facility] Pneumococcal 7 2002 Completed [facility] Conjugate, PCV7 00:00:00 [facility] (Prevnar7) [facility] Polio (IPV/OPV) 2002 Completed [facility] 00:00:00 [facility] DTAP 2002 Completed [facility] 00:00:00 [facility] HIB 4 Dose Schedule 2002 Completed [facility] 00:00:00 [facility] Pneumococcal 7 2002 Completed [facility] Conjugate, PCV7 00:00:00 [place] [facility] (Prevnar7) [facility] Polio (IPV/OPV) 2002 Completed [facility] 00:00:00 [facility] DTAP 2002 Completed [facility] 00:00:00 [facility] HIB 4 Dose Schedule 2002 Completed [facility] 00:00:00 [facility] Pneumococcal 7 2002 Completed [facility] Conjugate, PCV7 00:00:00 [facility] (Prevnar7) [facility] Polio (IPV/OPV) 2002 Completed [facility] 00:00:00 [facility] DTAP 2002 Completed [facility] 00:00:00 [facility] HIB 4 Dose Schedule 2002 Completed [facility] 00:00:00 [facility] Pneumococcal 7 2002 Completed [facility] Conjugate, PCV7 00:00:00 [place] [facility] (Prevnar7) [facility] Polio (IPV/OPV) 2002 Completed [facility] 00:00:00 [facility] DTAP 2002 Completed [facility] 00:00:00 [facility] HIB 4 Dose Schedule 2002 Completed [facility] 00:00:00 [facility] Pneumococcal 7 2002 Completed [facility] Conjugate, PCV7 00:00:00 [facility] (Prevnar7) [facility] Polio (IPV/OPV) 2002 Completed [facility] 00:00:00 [facility] DTAP 2002 Completed [facility] 00:00:00 [facility] HIB 4 Dose Schedule 2002 Completed [facility] 00:00:00 [facility] Pneumococcal 7 2002 Completed [facility] Conjugate, PCV7 00:00:00 [facility] (Prevnar7) [facility] Polio (IPV/OPV) 2002 Completed [facility] 00:00:00 [facility] DTAP 2002 Completed [facility] 00:00:00 [facility] HIB 4 Dose Schedule 2002 Completed [facility] 00:00:00 [facility] Pneumococcal 7 2002 Completed [facility] Conjugate, PCV7 00:00:00 [facility] (Prevnar7) [facility] Polio (IPV/OPV) 2002 Completed [facility] 00:00:00 [facility] DTAP 2002 Completed [facility] 00:00:00 [facility] HIB 4 Dose Schedule 2002 Completed [facility] 00:00:00 [facility] Pneumococcal 7 2002 Completed [facility] Conjugate, PCV7 00:00:00 [facility] (Prevnar7) [facility] Polio (IPV/OPV) 2002 Completed [facility] 00:00:00 [facility] DTAP 2002 Completed [facility] 00:00:00 [facility] HIB 4 Dose Schedule 2002 Completed [facility] 00:00:00 [facility] Pneumococcal 7 2002 Completed [facility] Conjugate, PCV7 00:00:00 [place] [facility] (Prevnar7) [facility] Polio (IPV/OPV) 2002 Completed [facility] 00:00:00 [facility] DTAP 2002 Completed [facility] 00:00:00 [facility] HIB 4 Dose Schedule 2002 Completed [facility] 00:00:00 [facility] Pneumococcal 7 2002 Completed [facility] Conjugate, PCV7 00:00:00 [facility] (Prevnar7) [facility] Polio (IPV/OPV) 2002 Completed [facility] 00:00:00 [facility] DTAP 2002 Completed [facility] 00:00:00 [facility] HIB 4 Dose Schedule 2002 Completed [facility] 00:00:00 [facility] Pneumococcal 7 2002 Completed [facility] Conjugate, PCV7 00:00:00 [facility] (Prevnar7) [facility] Polio (IPV/OPV) 2002 Completed [facility] 00:00:00 [facility] DTAP 2002 Completed [facility] 00:00:00 [facility] HIB 4 Dose Schedule 2002 Completed [facility] 00:00:00 [facility] Pneumococcal 7 2002 Completed [facility] Conjugate, PCV7 00:00:00 [place] [facility] (Prevnar7) [facility] Polio (IPV/OPV) 2002 Completed [facility] 00:00:00 [facility] DTAP 2002 Completed [facility] 00:00:00 [facility] HIB 4 Dose Schedule 2002 Completed [facility] 00:00:00 [facility] Pneumococcal 7 2002 Completed [facility] Conjugate, PCV7 00:00:00 [place] [facility] (Prevnar7) [facility] Polio (IPV/OPV) 2002 Completed [facility] 00:00:00 [facility] DTAP 2002 Completed [facility] 00:00:00 [facility] HIB 4 Dose Schedule 2002 Completed [facility] 00:00:00 [facility] Pneumococcal 7 2002 Completed [facility] Conjugate, PCV7 00:00:00 [place] [facility] (Prevnar7) [facility] Polio (IPV/OPV) 2002 Completed [facility] 00:00:00 [facility] DTAP 2002 Completed [facility] 00:00:00 [facility] HIB 4 Dose Schedule 2002 Completed [facility] 00:00:00 [facility] Pneumococcal 7 2002 Completed [facility] Conjugate, PCV7 00:00:00 [facility] (Prevnar7) [facility] Polio (IPV/OPV) 2002 Completed [facility] 00:00:00 [facility] DTAP 2002 Completed [facility] 00:00:00 [facility] HIB 4 Dose Schedule 2002 Completed [facility] 00:00:00 [facility] Pneumococcal 7 2002 Completed [facility] Conjugate, PCV7 00:00:00 [facility] (Prevnar7) Branch Polio (IPV/OPV) 2002 Completed [facility] 00:00:00 [facility] DTAP 2002 Completed [facility] 00:00:00 [facility] HIB 4 Dose Schedule 2002 Completed [facility] 00:00:00 [facility] Hep B, Adol or Pedi 2002 Completed [facility] Dosage 00:00:00 [facility] Polio (IPV/OPV) 2002 Completed [facility] 00:00:00 [facility] DTAP 2002 Completed [facility] 00:00:00 [facility] HIB 4 Dose Schedule 2002 Completed [facility] 00:00:00 [facility] Hep B, Adol or Pedi 2002 Completed [facility] of Dosage 00:00:00 [facility] Polio (IPV/OPV) 2002 Completed [facility] 00:00:00 [facility] DTAP 2002 Completed [facility] 00:00:00 [facility] HIB 4 Dose Schedule 2002 Completed [facility] 00:00:00 [facility] Hep B, Adol or Pedi 2002 Completed [facility] of Dosage 00:00:00 [facility] Polio (IPV/OPV) 2002 Completed [facility] 00:00:00 [facility] DTAP 2002 Completed [facility] 00:00:00 [facility] HIB 4 Dose Schedule 2002 Completed [facility] 00:00:00 [facility] Hep B, Adol or Pedi 2002 Completed [facility] of Dosage 00:00:00 [facility] Polio (IPV/OPV) 2002 Completed [facility] 00:00:00 [facility] DTAP 2002 Completed [facility] 00:00:00 [facility] HIB 4 Dose Schedule 2002 Completed [facility] 00:00:00 [facility] Hep B, Adol or Pedi 2002 Completed [facility] Dosage 00:00:00 [facility] Polio (IPV/OPV) 2002 Completed [facility] 00:00:00 [facility] DTAP 2002 Completed [facility] 00:00:00 [facility] HIB 4 Dose Schedule 2002 Completed [facility] 00:00:00 [facility] Hep B, Adol or Pedi 2002 Completed [facility] Dosage 00:00:00 [facility] Polio (IPV/OPV) 2002 Completed [facility] 00:00:00 [facility] DTAP 2002 Completed [facility] 00:00:00 [facility] HIB 4 Dose Schedule 2002 Completed [facility] 00:00:00 [facility] Hep B, Adol or Pedi 2002 Completed [facility] Dosage 00:00:00 [facility] Polio (IPV/OPV) 2002 Completed [facility] 00:00:00 [facility] DTAP 2002 Completed [facility] 00:00:00 [facility] HIB 4 Dose Schedule 2002 Completed [facility] 00:00:00 [facility] Hep B, Adol or Pedi 2002 Completed [facility] Dosage 00:00:00 [facility] Polio (IPV/OPV) 2002 Completed [facility] 00:00:00 [facility] DTAP 2002 Completed [facility] 00:00:00 [facility] HIB 4 Dose Schedule 2002 Completed [facility] 00:00:00 [facility] Hep B, Adol or Pedi 2002 Completed [facility] of Dosage 00:00:00 [facility] Polio (IPV/OPV) 2002 Completed [facility] 00:00:00 [facility] DTAP 2002 Completed [facility] 00:00:00 [facility] HIB 4 Dose Schedule 2002 Completed [facility] 00:00:00 [facility] Hep B, Adol or Pedi 2002 Completed [facility] Dosage 00:00:00 [facility] Polio (IPV/OPV) 2002 Completed [facility] 00:00:00 [facility] DTAP 2002 Completed [facility] 00:00:00 [facility] HIB 4 Dose Schedule 2002 Completed [facility] 00:00:00 [facility] Hep B, Adol or Pedi 2002 Completed [facility] of Dosage 00:00:00 [facility] Polio (IPV/OPV) 2002 Completed [facility] 00:00:00 [facility] DTAP 2002 Completed [facility] 00:00:00 [facility] HIB 4 Dose Schedule 2002 Completed [facility] 00:00:00 [facility] Hep B, Adol or Pedi 2002 Completed [facility] Dosage 00:00:00 [facility] Polio (IPV/OPV) 2002 Completed [facility] 00:00:00 [facility] DTAP 2002 Completed [facility] 00:00:00 [facility] HIB 4 Dose Schedule 2002 Completed [facility] 00:00:00 [facility] Hep B, Adol or Pedi 2002 Completed [facility] Dosage 00:00:00 [facility] Polio (IPV/OPV) 2002 Completed [facility] 00:00:00 [facility] DTAP 2002 Completed [facility] 00:00:00 [facility] HIB 4 Dose Schedule 2002 Completed [facility] 00:00:00 [facility] Hep B, Adol or Pedi 2002 Completed [facility] of Dosage 00:00:00 [facility] Polio (IPV/OPV) 2002 Completed [facility] 00:00:00 [facility] DTAP 2002 Completed [facility] 00:00:00 [facility] HIB 4 Dose Schedule 2002 Completed [facility] 00:00:00 [facility] Hep B, Adol or Pedi 2002 Completed [facility] Dosage 00:00:00 [facility] Polio (IPV/OPV) 2002 Completed [facility] 00:00:00 [facility] DTAP 2002 Completed [facility] 00:00:00 [facility] HIB 4 Dose Schedule 2002 Completed [facility] 00:00:00 [facility] Hep B, Adol or Pedi 2002 Completed [facility] Dosage 00:00:00 [facility] Polio (IPV/OPV) 2002 Completed [facility] 00:00:00 [facility] DTAP 2002 Completed [facility] 00:00:00 [facility] HIB 4 Dose Schedule 2002 Completed [facility] 00:00:00 [facility] Hep B, Adol or Pedi 2002 Completed [facility] Dosage 00:00:00 [facility] Polio (IPV/OPV) 2002 Completed [facility] 00:00:00 [facility] DTAP 2002 Completed [facility] 00:00:00 [facility] HIB 4 Dose Schedule 2002 Completed [facility] 00:00:00 [facility] Hep B, Adol or Pedi 2002 Completed [facility] Dosage 00:00:00 [facility] Polio (IPV/OPV) 2002 Completed [facility] 00:00:00 [facility] DTAP 2002 Completed [facility] 00:00:00 [facility] HIB 4 Dose Schedule 2002 Completed [facility] 00:00:00 [facility] Hep B, Adol or Pedi 2002 Completed [facility] of Dosage 00:00:00 [facility] Polio (IPV/OPV) 2002 Completed [facility] 00:00:00 [facility] DTAP 2002 Completed [facility] 00:00:00 [facility] HIB 4 Dose Schedule 2002 Completed [facility] 00:00:00 [facility] Hep B, Adol or Pedi 2002 Completed [facility] Dosage 00:00:00 [facility] Polio (IPV/OPV) 2002 Completed [facility] 00:00:00 [facility] DTAP 2002 Completed [facility] 00:00:00 [facility] HIB 4 Dose Schedule 2002 Completed [facility] 00:00:00 [facility] Hep B, Adol or Pedi 2002 Completed [facility] Dosage 00:00:00 [facility] Polio (IPV/OPV) 2002 Completed [facility] 00:00:00 [facility] DTAP 2002 Completed [facility] 00:00:00 [facility] HIB 4 Dose Schedule 2002 Completed [facility] 00:00:00 [facility] Hep B, Adol or Pedi 2002 Completed [facility] Dosage 00:00:00 [facility] Polio (IPV/OPV) 2002 Completed [facility] 00:00:00 [facility] DTAP 2002 Completed [facility] 00:00:00 [facility] HIB 4 Dose Schedule 2002 Completed [facility] 00:00:00 [facility] Hep B, Adol or Pedi 2002 Completed [facility] of Dosage 00:00:00 [facility] Polio (IPV/OPV) 2002 Completed [facility] 00:00:00 [facility] DTAP 2002 Completed [facility] 00:00:00 [facility] HIB 4 Dose Schedule 2002 Completed [facility] 00:00:00 [facility] Hep B, Adol or Pedi 2002 Completed [facility] Dosage 00:00:00 [facility] Polio (IPV/OPV) 2002 Completed [facility] 00:00:00 [facility] Hep B, Adol or Pedi 2002 Completed [facility] Dosage 00:00:00 [facility] Hep B, Adol or Pedi 2002 Completed [facility] Dosage 00:00:00 [facility] Hep B, Adol or Pedi 2002 Completed [facility] Dosage 00:00:00 [facility] Hep B, Adol or Pedi 2002 Completed [facility] Dosage 00:00:00 [facility] Hep B, Adol or Pedi 2002 Completed [facility] Dosage 00:00:00 [facility] Hep B, Adol or Pedi 2002 Completed [facility] Dosage 00:00:00 [facility] Hep B, Adol or Pedi 2002 Completed [facility] Dosage 00:00:00 [facility] Hep B, Adol or Pedi 2002 Completed [facility] Dosage 00:00:00 [facility] Hep B, Adol or Pedi 2002 Completed [facility] Dosage 00:00:00 [facility] Hep B, Adol or Pedi 2002 Completed Unive rsity of Dosage 00:00:00 [facility] Hep B, Adol or Pedi 2002 Completed Unive rsity of Dosage 00:00:00 [facility] Hep B, Adol or Pedi 2002 Completed Unive rsity of Dosage 00:00:00 [facility] Hep B, Adol or Pedi 2002 Completed Unive rsity of Dosage 00:00:00 [facility] Hep B, Adol or Pedi 2002 Completed Unive rsity of Dosage 00:00:00 [facility] Hep B, Adol or Pedi 2002 Completed Unive rsity of Dosage 00:00:00 [facility] Hep B, Adol or Pedi 2002 Completed Unive rsity of Dosage 00:00:00 [facility] Hep B, Adol or Pedi 2002 Completed Unive rsity of Dosage 00:00:00 [facility] Hep B, Adol or Pedi 2002 Completed Unive rsity of Dosage 00:00:00 [facility] Hep B, Adol or Pedi 2002 Completed Unive rsity of Dosage 00:00:00 [facility] Hep B, Adol or Pedi 2002 Completed Unive rsity of Dosage 00:00:00 [facility] Hep B, Adol or Pedi 2002 Completed Unive rsity of Dosage 00:00:00 [facility] Hep B, Adol or Pedi 2002 Completed Unive rsity of Dosage 00:00:00 [facility] Hep B, Adol or Pedi 2002 Completed Unive rsity of Dosage 00:00:00 [facility] Hep B, Adol or Pedi 2002 Completed Unive rsity of Dosage 00:00:00 [facility] Hep B, Adol or Pedi 2002 Completed Unive rsity of Dosage 00:00:00 [facility] Hep B, Adol or Pedi 2002 Completed Unive rsity of Dosage 00:00:00 [facility] Hep B, Adol or Pedi 2002 Completed Unive rsity of Dosage 00:00:00 [facility] Hep B, Adol or Pedi 2002 Completed Unive rsity of Dosage 00:00:00 [facility] Hep B, Adol or Pedi 2002 Completed Unive rsity of Dosage 00:00:00 [facility] Hep B, Adol or Pedi 2002 Completed Unive rsity of Dosage 00:00:00 [facility] Hep B, Adol or Pedi 2002 Completed Unive rsity of Dosage 00:00:00 [facility] Hep B, Adol or Pedi 2002 Completed Unive rsity of Dosage 00:00:00 [facility] Hep B, Adol or Pedi 2002 Completed Unive rsity of Dosage 00:00:00 [facility] Hep B, Adol or Pedi 2002 Completed Unive rsity of Dosage 00:00:00 [facility] Hep B, Adol or Pedi 2002 Completed Unive rsity of Dosage 00:00:00 [facility] Hep B, Adol or Pedi 2002 Completed Unive rsity of Dosage 00:00:00 [facility] Hep B, Adol or Pedi 2002 Completed Unive rsity of Dosage 00:00:00 [facility] Hep B, Adol or Pedi 2002 Completed Unive rsity of Dosage 00:00:00 [facility] Vital Signs Vital Name Observation Time Observation Value Comments Source Body temperature 2022-05-19 18:10:00 36.28 Linda [facility] ersity of [facility] Body weight 2022-05-19 18:10:00 51.256 kg Universi ty of [facility] BMI 2022-05-19 18:10:00 20.02 kg/m2 Universi ty [facility] Body temperature 2022-04-21 20:32:00 36.22 Linda [facility] ersity of [facility] Body height 2022-04-21 20:32:00 160 cm Universi ty of [facility] Body weight 2022-04-21 20:32:00 50.349 kg Universi ty [facility] BMI 2022-04-21 20:32:00 19.66 kg/m2 Universi ty [facility] Systolic blood 2022-04-11 03:10:00 110 mm[Hg] Univer sity of pressure [facility] Diastolic blood 2022-04-11 03:10:00 73 mm[Hg] Unive rsity of [facility] Heart rate 2022-04-11 03:10:00 88 /min [facility], Txi ty [facility] Respiratory rate 2022-04-11 03:10:00 18 /min [facility] Oxygen saturation in 2022-04-11 03:10:00 100 /min [facility] Arterial blood by [facility] Pulse oximetry Branch Body temperature 2022-04-10 22:10:00 36.28 Linda Univ ersity of [facility] Body weight 2022-04-10 22:10:00 49.896 kg Universi ty of [facility] BMI 2022-04-10 22:10:00 19.80 kg/m2 Universi ty [facility] Systolic blood 2022-04-10 21:48:00 108 mm[Hg] Univer sity of pressure [facility] Diastolic blood 2022-04-10 21:48:00 75 mm[Hg] Unive rsity of pressure [facility] Heart rate 2022-04-10 21:48:00 127 /min Universi ty of [facility] Body temperature 2022-04-10 21:48:00 36.61 Linda Univ ersity of [facility] Respiratory rate 2022-04-10 21:48:00 17 /min Univ ersity of [facility] Body height 2022-04-10 21:48:00 158.8 cm Universi ty of [facility] Body weight 2022-04-10 21:48:00 49.896 kg Universi ty of [facility] BMI 2022-04-10 21:48:00 19.80 kg/m2 Universi ty [facility] Oxygen saturation in 2022-04-10 21:48:00 98 /min University of Arterial blood by [employer] torito Pulse oximetry Branch Systolic blood 2022-04-07 18:00:00 104 mm[Hg] Univer sity of pressure [facility] Diastolic blood 2022-04-07 18:00:00 58 mm[Hg] Unive rsity of pressure [facility] Heart rate 2022-04-07 18:00:00 64 /min Universi ty [facility] Body temperature 2022-04-07 18:00:00 36.39 Linda Univ ersity of [facility] Respiratory rate 2022-04-07 18:00:00 18 /min Univ ersity of [facility] Oxygen saturation in 2022-04-07 18:00:00 96 /min University of Arterial blood by [employer] Pulse oximetry Branch Body height 2022-04-04 23:00:18 161.3 cm Universi ty of [facility] Body weight 2022-04-04 23:00:18 50.349 kg Universi ty [facility] BMI 2022-04-04 23:00:18 19.35 kg/m2 [facility]i ty [facility] Heart rate 2022-04-04 21:03:00 109 /min [facility]i ty [facility] Body temperature 2022-04-04 21:03:00 37.72 Linda Univ ersity of [facility] Respiratory rate 2022-04-04 21:03:00 18 /min Univ ersity of [facility] Oxygen saturation in 2022-04-04 21:03:00 95 /min [facility]terial blood by [facility] P[facility] oxim[facility] Systolic blood 2022-04-04 21:00:00 98 mm[Hg] Univer sity of pressure [facility] Diastolic blood 2022-04-04 21:00:00 64 mm[Hg] Unive rsity of pressure [facility] Body height 2022-04-04 17:44:00 162.6 cm Universi ty [facility] Body weight 2022-04-04 17:44:00 50.349 kg [facility]i [facility] BMI 2022-04-04 17:44:00 19.05 kg/m2 [facility] Systolic blood 2022-04-01 06:00:00 118 mm[Hg] Univer sity of pressure [facility] Diastolic blood 2022-04-01 06:00:00 92 mm[Hg] Unive rsity of pressure [facility] Heart rate 2022-04-01 06:00:00 78 /min Universi ty of [facility] Respiratory rate 2022-04-01 06:00:00 16 /min Univ ersity of [facility] Oxygen saturation in 2022-04-01 06:00:00 98 /min University of Arterial blood by [facility] Pulse oximetry Branch Body height 2022-04-01 03:48:00 160 cm Universi ty of [facility] Body weight 2022-04-01 03:48:00 56.7 kg [facility] BMI 2022-04-01 03:48:00 22.14 kg/m2 [facility] Height 2020-09-25 23:56:00 165.1 CM Weight 2020-09-25 23:56:00 2.69 KG Systolic blood 2022-05-19 16:06:00 124 mm[Hg] Univer sity of pressure [facility] Diastolic blood 2022-05-19 16:06:00 85 mm[Hg] Unive rsity of pressure [facility] Heart rate 2022-05-19 16:06:00 103 /min [facility]i ty [facility] Respiratory rate 2022-05-19 16:06:00 18 /min Univ ersity of [facility] Body height 2022-05-19 16:06:00 160 cm [facility] Body weight 2022-05-19 16:06:00 51.256 kg [facility] BMI 2022-05-19 16:06:00 20.02 kg/m2 [facility] Systolic blood 2022-05-02 13:53:00 115 mm[Hg] Univer sity of pressure [facility] Diastolic blood 2022-05-02 13:53:00 80 mm[Hg] Unive rsity of pressure [facility] Heart rate 2022-05-02 13:53:00 103 /min [facility]i ty [facility] Respiratory rate 2022-05-02 13:53:00 18 /min Univ ersity of [facility] Body height 2022-05-02 13:53:00 160 cm [facility] Body weight 2022-05-02 13:53:00 51.256 kg [facility]i ty [facility] BMI 2022-05-02 13:53:00 20.02 kg/m2 [facility] Body temperature 2022-04-21 20:32:00 36.22 Linda Univ ersity of [facility] Body height 2022-04-21 20:32:00 160 cm [facility] ty [facility] Body weight 2022-04-21 20:32:00 50.349 kg [facility] BMI 2022-04-21 20:32:00 19.66 kg/m2 [facility] Systolic blood 2022-04-21 15:04:00 104 mm[Hg] Univer sity of pressure [facility] Diastolic blood 2022-04-21 15:04:00 71 mm[Hg] Unive rsity of pressure [facility] Heart rate 2022-04-21 15:04:00 110 /min [facility]i ty [facility] Respiratory rate 2022-04-21 15:04:00 18 /min Univ ersity of [facility] Body height 2022-04-21 15:04:00 157.5 cm [facility] Body weight 2022-04-21 15:04:00 49.896 kg [facility]i ty [facility] BMI 2022-04-21 15:04:00 20.12 kg/m2 [facility] Systolic blood 2022-04-11 03:10:00 110 mm[Hg] Univer sity of pressure [facility] Diastolic blood 2022-04-11 03:10:00 73 mm[Hg] Unive rsity of pressure [facility] Heart rate 2022-04-11 03:10:00 88 /min Universi ty of [facility] Respiratory rate 2022-04-11 03:10:00 18 /min Univ ersity of [facility] Oxygen saturation in 2022-04-11 03:10:00 100 /min University of Arterial blood by [employer] tor[facility] Pulse oximetry Branch Body temperature 2022-04-10 22:10:00 36.28 Linda Univ ersity of [facility] Body weight 2022-04-10 22:10:00 49.896 kg Universi ty [facility] BMI 2022-04-10 22:10:00 19.80 kg/m2 [facility] Body height 2022-04-10 21:48:00 158.8 cm Universi ty [facility] Systolic blood 2022-04-06 13:00:00 114 mm[Hg] Univer sity of pressure [facility] Diastolic blood 2022-04-06 13:00:00 71 mm[Hg] Unive rsity of pressure [facility] Heart rate 2022-04-06 13:00:00 92 /min Universi ty [facility] Body temperature 2022-04-06 13:00:00 36.78 Linda Univ ersity of [facility] Respiratory rate 2022-04-06 13:00:00 20 /min Univ ersity of [facility] Oxygen saturation in 2022-04-06 13:00:00 96 /min University of Arterial blood by [place] [employer] tor[facility] Pulse oximetry Branch Body height 2022-04-04 23:00:18 161.3 cm Universi ty [facility] Body weight 2022-04-04 23:00:18 50.349 kg Universi ty [facility] BMI 2022-04-04 23:00:18 19.35 kg/m2 Universi ty [facility] Systolic blood 2022-03-28 14:54:00 116 mm[Hg] Univer sity of pressure [facility] Diastolic blood 2022-03-28 14:54:00 87 mm[Hg] Unive rsity of pressure [facility] Heart rate 2022-03-28 14:54:00 113 /min Universi ty of [facility] Respiratory rate 2022-03-28 14:54:00 18 /min [facility] ersity of [facility] Body height 2022-03-28 14:54:00 160 cm Universi ty of [facility] Body weight 2022-03-28 14:54:00 51.71 kg Universi ty [facility] BMI 2022-03-28 14:54:00 20.19 kg/m2 Universi ty of [facility] Body temperature 2022-02-24 18:37:00 37 Linda [facility] ersity of [facility] Body weight 2022-02-24 18:37:00 51.801 kg Universi ty of [facility] BMI 2022-02-24 18:37:00 20.23 kg/m2 Universi ty of [facility] Systolic blood 2022-02-21 12:51:00 133 mm[Hg] Univer sity of pressure [facility] Diastolic blood 2022-02-21 12:51:00 49 mm[Hg] Unive rsity of pressure [facility] Heart rate 2022-02-21 12:51:00 108 /min Universi ty of [facility] Respiratory rate 2022-02-21 12:51:00 18 /min [facility] Body height 2022-02-21 12:51:00 160 cm Universi ty [facility] Oxygen saturation in 2022-01-24 00:45:00 98 /min [facility] Arterial blood by [facility] Pulse oximetry Branch Head 2009-07-13 18:51:00 51 cm Universi ty of Occipital-frontal [facility] circumference by [employer] Branch measure Procedures Procedure Date / Time Performing Clinician Source Performed XR PELVIS 3+ VW 2022-05-19 16:43:54 Arnaldo [facility] XR PELVIS 3+ VW 2022-04-21 20:26:51 Arnaldo [facility] XR HIPS 3 VW RIGHT 2022-04-11 02:02:[address] [facility], Txi [facility] XR PELVIS <3 VW 2022-04-11 02:02:47 [facility] <3 VW 2022-04-11 02:02:47 Irasema Robledo [facility] XR HIPS 3 VW RIGHT 2022-04-11 02:02:47 Irasema Robledo [facility] POCT TEST 2022-04-11 01:46:00 Irasema Robledo [facility] POCT TEST 2022-04-11 01:46:00 Irasema Robledo [facility] URINALYSIS 2022-04-11 01:45:00 Venkat [facility] URINALYSIS 2022-04-11 01:45:00 Venkat [facility] COMP. METABOLIC PANEL 2022-04-10 23:02:[id number] CBC WITH DIFF 2022-04-10 23:02:00 Venkat [facility] CBC WITH DIFF 2022-04-10 23:02:00 Venkat [facility] COMP. METABOLIC PANEL 2022-04-10 23:02:00 Venkat [facility] ([id number]) [facility] EMERGENCY SERVICES 2022-04-10 05:01:00 Doctor Unassigned, [facility] AGREEMENTS AND [facility] AUTHORIZATIONS EMERGENCY DEPARTMENT 2022-04-10 05:01:00 Doctor Unassigned, [facility] DOCUMENTS [facility] XR CLAVICLE COMP 2022-04-05 19:40:00 Eyad [facility] BILATERAL [facility] XR CLAVICLE COMP 2022-04-05 19:40:00 Lobo Castano [facility] BILATERAL Medical Branch URINALYSIS 2022-04-05 11:07:00 Greg [facility] URINALYSIS 2022-04-05 11:07:00 Greg [facility] CBC WITH DIFF 2022-04-05 10:24:00 Anant, Jimena [facility] BASIC METABOLIC PANEL 2022-04-05 10:24:00 Anant [facility] (NA, K, CL, CO2, GLUCOSE, [facility] BUN, CREATININE, CA) BASIC METABOLIC PANEL 2022-04-05 10:24:00 Anant, Jimena [facility] (NA, K, CL, CO2, GLUCOSE, [facility] BUN, CREATININE, CA) CBC WITH DIFF 2022-04-05 10:24:00 Jimena Ny [facility] COVID-19 (ID NOW RAPID 2022-04-05 00:38:00 AnantJimena irene [facility] TESTING) [facility] LAB ONLY COVID 2022-04-05 00:38:00 Jimena Ny [facility] INTERPRETATION [facility] COVID-19 (ID NOW RAPID 2022-04-05 00:38:00 AnantJimena irene [facility] TESTING) [facility] LAB ONLY COVID 2022-04-05 00:38:00 Jimena Ny [facility] INTERPRETATION [facility] TROPONIN I 2022-04-05 00:25:[address] [facility] Andrea TROPONIN I 2022-04-05 00:25[facility] XR SHOULDER 2+ VW RIGHT 2022-04-05 00:11:00 Chou [facility] Andrea XR KNEE 3 VW LEFT 2022-04-05 00:11:00 Chou [facility] Andrea XR FOOT 3+ VW LEFT 2022-04-05 00:11:00 Chou [facility] Andrea XR PELVIS 3+ VW 2022-04-05 00:11:00 Flo [facility] XR KNEE <3 VW RIGHT 2022-04-05 00:11:00 Flo [facility] XR FOOT 3+ VW LEFT 2022-04-05 00:11:00 Chou [facility] Andrea XR KNEE <3 VW RIGHT 2022-04-05 00:11:00 Flo [facility] [place] XR KNEE 3 VW LEFT 2022-04-05 00:11:00 José Antonio [facility] Jennifer, [facility] Andrea XR PELVIS 3+ VW 2022-04-05 00:11:00 Flo [facility] XR SHOULDER 2+ VW RIGHT 2022-04-05 00:11:00 Chou [facility] Andrea HB ECG ROUTINE & RHYTHM 2022-04-04 23:08[facility] Jennifer, [facility] Andrea HB ECG ROUTINE & RHYTHM 2022-04-04 23:08:[address] [facility] Andrea HB ABO GROUPING 2022-04-04 19:55:00 Nolvia [facility] HB ABO GROUPING 2022-04-04 19:55:00 Nolvia [facility] CT TRAUMA HEAD WO 2022-04-04 19:10:01 Nolvia Husain [facility] CONTRAST Medical Branch CT TRAUMA CERVICAL SPINE 2022-04-04 19:10:01 Nolvia Husain [facility] CONTRAST Medical Branch CT TRAUMA THORACIC SPINE 2022-04-04 19:10:01 Nolvia Husain [facility] CONTRAST Medical Branch CT TRAUMA LUMBAR SPINE WO 2022-04-04 19:10:01 [facility] CT TRAUMA HEAD WO 2022-04-04 19:10:01 Nolvia Husain [facility] CONTRAST Medical Branch CT TRAUMA CERVICAL SPINE 2022-04-04 19:10:01 Nolvia Husain [facility] CONTRAST Medical Branch CT TRAUMA THORACIC SPINE 2022-04-04 19:10:01 Nolvia Husain [facility] CONTRAST Medical Branch CT TRAUMA LUMBAR SPINE WO 2022-04-04 19:10:01 [facility] [place] CT TRAUMA THORAX W 2022-04-04 19:08:26 Nolvia Husain [facility] CONTRAST Medical Branch CT TRAUMA ABDOMEN PELVIS 2022-04-04 19:08:26 Nolvia Hus[facility] [place] [facility] CONTRAST Medical Branch CT TRAUMA THORAX W 2022-04-04 19:08:26 Nolvia Husain [facility] CONTRAST Medical Branch CT TRAUMA ABDOMEN PELVIS 2022-04-04 19:08:26 Nolvia Husain [facility] W CONTRAST Medical Branch ABORH CONFIRMATION (LAB 2022-04-04 19:02:00 Nolvia Husain [facility] ONLY) Medical Branch ABORH CONFIRMATION (LAB 2022-04-04 19:02:00 Nolvia Husain [facility] ONLY) Medical Branch LIPASE 2022-04-04 18:35:00 Nolvia [facility] TEST, SERUM 2022-04-04 18:35:00 Nolvia Husain [facility] COMP. METABOLIC PANEL 2022-04-04 18:35:[address] [facility] ([id number]) Medical Branch COMP. METABOLIC PANEL 2022-04-04 18:35:[address] [facility] ([id number]) Medical Branch LIPASE 2022-04-04 18:35:00 Nolvia [facility] TEST, SERUM 2022-04-04 18:35:00 Nolvia Husain [facility] CBC WITH DIFF 2022-04-04 18:20:00 Nolvia [facility] CBC WITH DIFF 2022-04-04 18:20:00 Nolvia [facility] EMERGENCY SERVICES 2022-04-04 05:01:00 Doctor Rosamariasslanette, [facility] AGREEMENTS AND [facility] AUTHORIZATIONS EMERGENCY DEPARTMENT 2022-04-04 05:01:00 Doctor Unassigned, [facility] DOCUMENTS [facility] EMERGENCY SERVICES 2022-04-04 05:01:00 Doctor Rosamariasslanette, [facility] AGREEMENTS AND [facility] AUTHORIZATIONS EMERGENCY DEPARTMENT 2022-04-04 05:01:00 Doctor Unassigned, [facility] DOCUMENTS [facility] POCT TEST 2022-04-01 04:37:00 Deonna Melendrez [facility] POCT TEST 2022-04-01 04:37:00 Deonna Melendrez [facility] Medical Branch LIPASE 2022-04-01 04:36:00 Deonna [facility] COMP. METABOLIC PANEL 2022-04-01 04:36:[address] [facility] ([id number]) Medical Branch CBC WITH DIFF 2022-04-01 04:36:00 Deonna [facility] URINALYSIS 2022-04-01 04:36:00 Deonna [facility] CBC WITH DIFF 2022-04-01 04:36:00 Deonna [facility] COMP. METABOLIC PANEL 2022-04-01 04:36:[address] [facility] ([id number]) [facility] URINALYSIS 2022-04-01 04:36:00 Deonna [facility] LIPASE 2022-04-01 04:36:00 Deonna [facility] NOTICE OF PRIVACY 2022-04-01 03:37:12 Doctor Unaapriligned, [facility] PRACTICES [facility] NOTICE OF PRIVACY 2022-04-01 03:37:12 Doctor Unasslanette, [facility] CONSENT/REFUSAL FOR 2022-04-01 03:36:55 Doctor Fidel [facility] DIAGNOSIS AND TREATMENT [facility] CONSENT/REFUSAL FOR 2022-04-01 03:36:55 Doctor Rosamariacritical access hospital [facility] DIAGNOSIS AND TREATMENT [facility] EMERGENCY SERVICES 2022-03-31 05:01:[address] [facility] AGREEMENTS AND [facility] AUTHORIZATIONS SARS-COV-2 COVID-19 2022-03-17 16:49:14 Doctor [facility] MIKE-SUCROSE VACCINE 12 [facility] YRS+, BIVALENT 0.3ML, IM, (PFIZER [employer]ITA [employer]ER) SARS-COV-2 COVID-19 2022-03-17 16:49:14 Doctor Rosamariasslanette, [facility] MIKE-SUCROSE VACCINE 12 [facility] YRS+, BIVALENT 0.3ML, IM, (PFIZER [employer]ITA [employer] BOOSTER) XR PELVIS 3+ VW 2022-02-24 18:13:00 Bouchra Mcintosh o f [facility] EXTERNAL PROVIDER RECORDS 2022-02-22 05:01:00 Doctor Fidel, [facility] EMERGENCY SERVICES 2022-01-23 05:01:00 Doctor Rosamariasslanette, [facility] AGREEMENTS AND [facility] AUTHORIZATIONS EMERGENCY DEPARTMENT 2022-01-23 05:01:00 Doctor Unassigned, [facility] DOCUMENTS [facility] Encounters Start End Encounter Admission Attending Care Care Encounter Source Date/Time Date/Time Type Type Clinicians Facility Department ID 2021-11-02 Outpatient [facility] [id number] DC 11:00:33 [id number] Health 2021-07-09 Inpatient [facility] [id number] [facility] 12:46:00 14 2021-05-25 Inpatient [facility] [id number] [facility] 23:19:00 94 2021-04-30 Emergency [facility] [id number] Univers 23:08:18 ity [facility] 2022-05-23 2022-05-23 Outpatient R [facility] [id number] Univers 10:15:00 10:15:00 JAMES bernal o [facility] 2022-05-19 2022-05-19 [facility] [id number] Univers 10:33:33 23:59:00 Encounter [facility] [id number] [id number] [facility] [id number] [address] [place] 2022-05-19 2022-05-19 Office [facility] [id number] Univers 12:50:00 12:50:00 Visit [facility] PR[facility] [id number] it [id number] [id number] [facility] [address] [place] 2022-05-19 2022-05-19 Outpatient R [facility] [id number] Univers 12:50:00 12:42:46 BOUCHRA erickson [facility] 2022-05-19 2022-05-19 Travel [id number] Univers 00:00:00 00:00:00 [id number] ity of 3.104.2.7 [id number] 084.8 Med[place] l .8 [place] 2022-05-02 2022-05-02 Outpatient R REYNALDO, [facility] [id number] Univers 08:45:00 09:32:43 JAMES ity o f [facility] 2022-05-02 2022-05-02 Travel 1.2.840.1 [id number] Univers 00:00:00 00:00:00 [id number] ity of 3.104.2.7 [id number] [place][id number] 084.8 Med[place] l .8 [place] 2022-04-21 2022-04-21 [facility] [id number] Univers 15:08:38 23:59:00 BOUCHRA ity of [facility] 2022-04-21 2022-04-21 [facility], 1.2.840.7 [id number] Univers 15:08:38 23:59:00 Encounter Bouchra 50623.1.1 it y of 3.104.2.7 [place] .3.852610 [facility] .[facility] [place] 2022-04-21 2022-04-21 Formerly [facility], 1.2.840.9 [id number] Univers 15:20:00 16:19:45 Visit Bouchra 22878.1.1 ity of 3.104.2.7 [place] .3.649165 [facility] .[facility] [place] 2022-04-21 2022-04-21 Travel 1.2.840.1 1.2.129.386 0133 0847 Univers 00:00:00 00:00:00 39653.1.1 350.1.13.10 ity of 3.104.2.[place].698 [place] 0[place].8 [place] 2022-04-10 2022-04-10 Emergency X ROBLEDO, [facility] ERT [id number] Univers 17:11:00 22:14:00 IRASEMA ity of [facility] 2022-04-10 2022-04-10 Emergency Robledo, 1.2.840.2 [id number] Univers 17:11:00 22:14:00 Irasema 57751.1.1 ity of 3.104.2.7 [place] .3.255011 [facility] .[place] 2022-04-10 2022-04-10 Urgent MariShivani 1.2.840.1 [id number] [id number] Univers 16:40:00 18:22:07 Care [facility] 60891.1.1 ity of 3.104.2.7 [place] .3.674311 Medica l .8 [place] 2022-04-10 2022-04-10 Outpatient R MARI [facility] [id number] Univers 16:40:00 16:40:00 SHIVANI ity o f [facility] 2022-04-10 2022-04-10 Travel 1.2.840.1 1.2.293.306 3665 4834 Univers 00:00:00 00:00:00 05217.1.1 350.1.13.10 ity of 3.104.2.7 [place]3.698 [place].9599[place] 084.8 [place] .[place] 2022-04-08 2022-04-08 Transition Moise, 1.2.840.3 [id number] Univers 00:00:00 00:00:00 of Care Negrita 51218.1.1 i ty of 3.104.2.7 [place] .3.265153 Med[place] .[place] 2022-04-04 2022-04-07 Hospital Person, 1.2.840.9 [id number] Univers 17:33:00 17:00:00 Encounter Keagan 91902.1.1 it y of 3.104.2.7 [place] .3.879289 Med[place] .[place] 2022-04-06 2022-04-06 [facility], 1.2.840.8 [id number] Univers 00:00:00 00:00:00 Management Care 08031.1.1 i ty of Transition 3.104.2.7 Harley as .3.489074 Medica l .8 [place] 2022-04-04 2022-04-04 [facility] [id number] Univers 12:41:00 16:56:00 NOLVIA ity [facility] 2022-04-04 2022-04-04 [facility] [id number] Univers 12:41:00 16:56:00 NOLVIA ity [facility] 2022-04-04 2022-04-04 Emergency Husain, 1.2.840.0 [id number] [id number] Univers 12:41:00 16:56:00 Nolvia 19831.1.1 ity of 3.104.2.7 [place] .3.461382 Medica l .8 [place] 2022-04-04 2022-04-04 Travel 1.2.840.1 1.2.430.573 7021 3840 Univers 00:00:00 00:00:00 97018.1.1 350.1.13.10 ity of 3.104.2.7 [place].3.698 [place] 084.8 [place] .[place] 2022-03-31 2022-04-01 [facility] [id number] Univers 22:46:00 01:29:00 DEONNA ity of [facility] 2022-03-31 2022-04-01 Emergency Melendrez, 1.2.840.4 [id number] [id number] Univers 22:46:00 01:29:00 Deonna Murillo 93987.1.1 ity of 3.104.2.7 [place] .3.484121 Medica [place] .8 [place] 2022-03-31 2022-03-31 Orders Doctor 1.2.840.9 [id number] Univers 00:00:00 00:00:00 Only Unassigned, 56996.1.1 ity of [place] 3.104.2.7 [place] .3.259889 Medica l .8 [place] 2022-03-31 2022-03-31 Travel 1.2.840.1 1.2.765.049 6686 0137 Univers 00:00:00 00:00:00 18704.1.1 350.1.13.10 ity of 3.104.2.7 [place]7.3.698 [place]3.696828 084.8 [place] .8 [place] 2022-03-28 2022-03-28 Outpatient R REYNALDO [facility] [id number] Univers 10:15:00 12:05:24 JAMES ity o f [facility] 2022-03-28 2022-03-28 Travel 1.2.840.1 1.2.095.397 5105 [id number] Univers 00:00:00 00:00:00 00529.1.1 350.1.13.10 ity of 3.104.2.7 [place]7.3.698 [place] .3.289709 084.8 [place] .[place] 2022-03-17 2022-03-17 Imm/Inj Vignesh Mack P 1.2.840.1 [id number] Univers 11:30:00 12:25:54 Visit [facility] 85748.1.1 ity of 3.104.2.7 [place] .3.107075 Medica l .8 [place] 2022-03-17 2022-03-17 [facility] [id number] Univers 10:30:00 11:13:04 VIGNESH ity of [facility] 2022-03-17 2022-03-17 Travel 1.2.840.1 1.2.725.198 7815 0034 Univers 00:00:00 00:00:00 84057.1.1 350.1.13.10 ity of 3.104.2.7 [place]7.3.698 [place]3.175911 084.8 [place] .8 [place] 2022-02-24 2022-02-24 [facility], 1.2.840.2 [id number] Univers 13:02:19 23:59:00 Encounter Bouchra 72770.1.1 it y of 3.104.2.7 [place] .3.377276 Medica l .8 [place] 2022-02-24 2022-02-24 [facility], 1.2.840.3 [id number] Univers 13:02:19 23:59:00 Encounter Bouchra 27149.1.1 it y of 3.104.2.7 [place] .3.014902 Medica l .8 [place] 2022-02-24 2022-02-24 Outpatient [facility] [id number] Univers 13:00:00 14:33:28 BOUCHRA ity of [facility] 2022-02-24 2022-02-24 Formerly [facility], 1.2.840.5 [id number] [id number] Univers 13:00:00 14:33:28 Visit Bouchra 26535.1.1 ity of 3.104.2.7 [place] .3.520469 Medica l .8 [place] 2022-02-24 2022-02-24 Outpatient R ARNALDO [facility] [id number] Univers 13:00:00 13:00:00 BOUCHRA ity of [facility] 2022-02-24 2022-02-24 Travel 1.2.840.1 1.2.630.698 5231 4498 Univers 00:00:00 00:00:00 16863.1.1 350.1.13.10 ity of 3.104.2.7 [place]7.3.698 [place]3.559463 084.8 [place] .[place] 2022-02-22 2022-02-22 Orders Doctor 1.2.840.2 [id number] Univers 00:00:00 00:00:00 Only Unassigned, 14941.1.1 ity of [place] 3.104.2.7 [place] .3.743398 Medica l .8 [place] 2022-02-22 2022-02-22 Orders Doctor 1.2.840.6 [id number] Univers 00:00:00 00:00:00 Only Unassigned, 45662.1.1 ity of [place] 3.104.2.7 [place] .3.495025 [facility] [place] 2022-02-21 2022-02-21 Outpatient R SELF, [facility] [id number] Univers 08:00:00 08:48:33 JAMES ity o f [facility] 2022-02-21 2022-02-21 Travel 1.2.840.1 1.2.706.236 0907 9562 Univers 00:00:00 00:00:00 15279.1.1 350.1.13.10 ity of 3.104.2.7 [place]7.3.698 [place] .3.915246 084.8 [place] .[facility] [place] 2022-02-21 2022-02-21 Travel 1.2.840.1 1.2.698.648 0232 9562 Univers 00:00:00 00:00:00 30110.1.1 350.1.13.10 ity of 3.104.2.7 4.[place]7.3.698 [place] .3.450324 084.8 [place] .[facility] [place] 2022-01-23 2022-01-23 Emergency X CHECO K [facility] ERT [id number] Univers 19:42:00 21:04:00 ity of [facility] 2022-01-23 2022-01-23 Emergency Checo, K 1.2.840.3 [id number] Univers 19:42:00 21:04:00 Bree 92525.1.1 ity of 3.104.2.7 [place] .3.892828 Medica [facility] .[facility] [place] 2022-01-23 2022-01-23 Emergency Checo, K 1.2.840.8 [id number] Univers 19:42:00 21:04:00 Bree 40750.1.1 ity of 3.104.2.7 [place] .3.258375 Med[facility] .[facility] [place] 2022-01-23 2022-01-23 Travel 1.2.840.1 1.2.709.456 1042 2965 Univers 00:00:00 00:00:00 42410.1.1 350.1.13.10 ity of 3.104.2.7 4.[place]7.3.698 [place]3.101189 084.8 [place] .8 [place] 2022-01-23 2022-01-23 Travel 1.2.840.1 1.2.163.[address] [facility] 00:00:00 00:00:00 60773.1.1 350.1.13.10 ity of 3.104.2.7 4.[place].7.3.698 [place] .3.026741 084.8 Med[place] l .8 [place] 2022-01-17 2022-01-17 Outpatient R SELF, [facility] [id number] Univers 10:15:00 11:23:04 JAMES bernaladrian [facility] 2022-01-17 2022-01-17 Outpatient R SELF, [facility] [id number] Univers 10:15:00 11:23:04 JAMES bernaladrian [facility] 2022-01-17 2022-01-17 Travel 1.2.840.1 1.2.321.696 3005 6960 Univers 00:00:00 00:00:00 33008.1.1 350.1.13.10 ity of 3.104.2.7 4.[place].7.3.698 [place] .3.564693 084.8 [place] l .8 [place] 2022-01-17 2022-01-17 Travel 1.2.840.1 1.2.215.986 6905 6960 Univers 00:00:00 00:00:00 37100.1.1 350.1.13.10 ity of 3.104.2.7 [place].7.3.698 [place]3.343909 084.8 [place] l .8 [place] 2021-12-31 2021-12-31 Outpatient R ASH RAMIREZ [facility] [id number] Univers 16:00:00 17:22:54 ity of [facility] 2021-12-31 2021-12-31 Office Ash Ramirez 1.2.840.8 [id number] Univers 16:00:00 17:22:54 Visit Maggie Brooks 82782.1.1 ity of 3.104.2.7 [place] .3.863896 Medica l .8 [place] 2021-12-31 2021-12-31 Office Ash Ramirez 1.2.840.5 [id number] Univers 16:00:00 17:22:54 Visit Maggie Brooks 08773.1.1 ity of 3.104.2.7 [place] .3.722821 Medica l .8 [place] 2021-12-31 2021-12-31 Outpatient R ASH RAMIREZ [facility] [id number] Univers 16:00:00 16:00:00 ity of [facility] 2021-12-31 2021-12-31 Travel 1.2.840.1 1.2.973.225 3941 7179 Univers 00:00:00 00:00:00 55222.1.1 350.1.13.10 ity of 3.104.2.7 4.[place].7.3.698 [place] .3.863431 084.8 Med[place] l .8 [place] 2021-12-31 2021-12-31 Travel 1.2.840.1 1.2.038.632 7542 7179 Univers 00:00:00 00:00:00 36437.1.1 350.1.13.10 ity of 3.104.2.7 4.2.7.3.698 [place] .3.915003 084.8 [place] l .8 [place] 2021-12-20 2021-12-20 Outpatient R SELF [facility] [id number] Univers 10:30:00 11:58:18 JAMES ity o f [facility] 2021-12-20 2021-12-20 Travel 1.2.840.1 1.2.677.702 1048 9777 Univers 00:00:00 00:00:00 47668.1.1 350.1.13.10 ity of 3.104.2.7 4.2.7.3.698 [place] .3.131699 084.8 Medica l .8 [place] 2021-12-20 2021-12-20 Travel 1.2.840.1 1.2.250.[address] [facility] 00:00:00 00:00:00 25165.1.1 350.1.13.10 ity of 3.104.2.7 4.2.7.3.698 [place] .3.752107 084.8 Med[place] l .8 [place] 2021-12-20 2021-12-20 Travel 1.2.840.1 1.2.698.[address] [facility] 00:00:00 00:00:00 31877.1.1 350.1.13.10 ity of 3.104.2.7 4.2.7.3.698 [place] .3.309578 084.8 Medica l .8 [place] 2021-12-13 2021-12-13 [facility] [id number] Univers 08:00:00 08:00:00 HANDY erickson [facility] 2021-12-06 2021-12-06 Urgent Shivani Guerra 1.2.840.[id number] [facility] 12:00:00 12:16:45 Akiko Gonzalez 68882.1.1 ity of 3.104.2.7 [place] .3.718956 Medica l .8 [place] 2021-12-06 2021-12-06 Urgent Shivani Guerra 1.2.840.1 [id number] Univers 12:00:00 12:16:45 Akiko Gonzalez 19730.1.1 ity of 3.104.2.7 [place] .3.421522 Medica l .8 [place] 2021-12-06 2021-12-06 Outpatient [facility] [id number] Univers 12:00:00 12:16:45 AKIKO erickson [facility] 2021-12-06 2021-12-06 Shivani Patel 1.2.840.1 [id number] Univers 12:00:00 12:16:45 Eros VossAkiko 06420.1.1 ity of 3.104.2.7 [place] .3.314224 Medica l .8 [place] 2021-12-06 2021-12-06 Travel 1.2.840.1 1.2.719.323 0592 2730 Univers 00:00:00 00:00:00 12656.1.1 350.1.13.10 ity of 3.104.2.7 4.2.7.3.698 [place] .3.989606 084.8 [place] l .8 [place] 2021-12-06 2021-12-06 Travel 1.2.840.1 1.2.464.820 2306 2730 Univers 00:00:00 00:00:00 93591.1.1 350.1.13.10 ity of 3.104.2.7 4.2.7.3.698 [place] .3.232682 084.8 Med[place] l .8 [place] 2021-12-06 2021-12-06 Travel 1.2.840.1 1.2.238.904 8411 2730 Univers 00:00:00 00:00:00 19154.1.1 350.1.13.10 ity of 3.104.2.7 4.2.7.3.698 [place] .3.810490 084.8 Medica l .8 [place] 2021-11-26 2021-11-26 Office Fish, Ash 1.2.840.3 [id number] Univers 15:00:00 15:40:48 Visit 69894.1.1 ity of 3.104.2.7 [place] .3.127970 Medica l .8 [place] 2021-11-26 2021-11-26 Outpatient R FISH, ASH [facility] [id number] [facility] 15:00:00 15:40:48 ity of [facility] 2021-11-26 2021-11-26 Office Fish, Ash 1.2.840.4 [id number] Univers 15:00:00 15:40:48 Visit 97410.1.1 ity of 3.104.2.7 [place] .3.103575 Medica l .8 [place] 2021-11-26 2021-11-26 Outpatient R ASH RAMIREZ [facility] [id number] Univers 15:00:00 15:00:00 ity of [facility] 2021-11-26 2021-11-26 Travel 1.2.840.1 1.2.013.509 2727 4215 Univers 00:00:00 00:00:00 13476.1.1 350.1.13.10 ity of 3.104.2.7 4.2.7.3.698 [place] .3.757559 084.8 Medica l .8 [place] 2021-11-26 2021-11-26 Travel 1.2.840.1 1.2.980.169 0528 4215 Univers 00:00:00 00:00:00 94775.1.1 350.1.13.10 ity of 3.104.2.7 4.2.7.3.698 [place] .3.150003 084.8 Med[place] l .8 [place] 2021-11-23 2021-11-23 Outpatient R ASH RAMIREZ [facility] [id number] Univers 14:00:00 14:00:00 ity of [facility] 2021-11-19 2021-11-19 [facility], 1.2.840.1 [id number] Univers 17:58:13 23:59:00 Encounter Jasenia 97940.1.1 it y of 3.104.2.7 [place] .3.563416 Medica l .8 [place] 2021-11-19 2021-11-19 [facility]patient [facility] [id number] Univers 17:58:13 23:59:00 RANIA ity of [facility] 2021-11-19 2021-11-19 [facility] 1.2.053.107 9539 [id number] Univers 17:58:13 23:59:00 Encounter JasenNexstim 350.1.13.10 ity of [place] 4.2.7.2.686 Harley as OLIVIA?BLEA [id number] Pa dical [facility] [address] [place] MEDICAL OFFICE [facility] 2021-11-19 2021-11-[facility] 1.2.840.8 [id number] Univers 17:58:13 23:59:00 Encounter Vania 28112.1.1 it y of 3.104.2.7 [place] .3.140739 Medica l .8 [place] 2021-11-19 2021-11-19 Urgent Ebrahim, 1.2.840.7 [id number] [id number] Univers 17:20:00 18:04:46 Care Jasenia 57035.1.1 ity of 3.104.2.7 [place] .3.555451 Medica l .8 [place] 2021-11-19 2021-11-19 Urgent Ebrahim, [facility] 1.2.840.114 [id number] Univers 17:20:00 18:04:46 Care JasenNexstim 350.1.13.10 it y of [place] 4.2.7.2.686 Harley as OLIVIA?BLEA [phone] Pa dicbill [facility] [address] [place] MEDICAL OFFICE [facility] 2021-11-19 2021-11-19 Urgent Ebrahim, 1.2.840.1 [id number] [id number] Univers 17:20:00 18:04:46 Care Rania 19274.1.1 ity of 3.104.2.7 [place] .3.328915 Medica l .8 [place] 2021-11-19 2021-11-19 Travel 1.2.840.1 1.2.086.574 1650 4086 Univers 00:00:00 00:00:00 72749.1.1 350.1.13.10 ity of 3.104.2.7 4.2.7.3.698 [place] .3.877560 084.8 Medica l .8 [place] 2021-11-19 2021-11-19 Travel 1.2.840.1 1.2.297.414 4066 4086 Univers 00:00:00 00:00:00 29125.1.1 350.1.13.10 ity of 3.104.2.7 4.2.7.3.698 [place] .3.855788 084.8 [place] l .8 [place] 2021-11-17 2021-11-17 Outpatient R LUCINDA WILLS [facility] [id number] Univers 14:45:00 14:45:00 ity of [facility] 2021-11-17 2021-11-17 Outpatient R LUCINDA WILLS [facility] [id number] Univers 14:45:00 14:45:00 ity of [facility] 2021-11-16 2021-11-16 Telephone WillsLucinda 1.2.840.7 [id number] Univers 00:00:00 00:00:00 Cam 99079.1.1 ity of 3.104.2.7 [place] .3.015336 Medica l .8 [place] 2021-11-16 2021-11-16 Telephone WillsLucinda 1.2.840.3 [id number] Univers 00:00:00 00:00:00 Cam 30220.1.1 ity of 3.104.2.7 [place] .3.759577 Medica l .8 [place] 2021-11-16 2021-11-16 Telephone Nataly Willsen 1.2.840.4 [id number] Univers 00:00:00 00:00:00 Cam 91351.1.1 ity of 3.104.2.7 [place] .3.644143 Medica l .8 [place] 2021-11-08 2021-11-08 Outpatient R REYNALDO [facility] [id number] Univers 11:15:00 11:40:32 JAMES ity o f [facility] 2021-11-08 2021-11-08 Travel 1.2.840.1 1.2.134.354 9330 9142 Univers 00:00:00 00:00:00 06241.1.1 350.1.13.10 ity of 3.104.2.7 4.2.7.3.698 [place] .3.735123 084.8 [facility] .[facility] [place] 2021-11-08 2021-11-08 Travel 1.2.840.1 1.2.240.080 0758 9142 Univers 00:00:00 00:00:00 72184.1.1 350.1.13.10 ity of 3.104.2.7 4.2.7.3.698 [place] .3.281288 084.8 Med[facility] l .8 [place] 2021-11-08 2021-11-08 Travel 1.2.840.1 1.2.942.038 8083 9142 Univers 00:00:00 00:00:00 13956.1.1 350.1.13.10 ity of 3.104.2.7 4.2.7.3.698 [place] .3.220232 084.8 [place] l .8 [place] 2021-10-29 2021-10-29 Office Lucinda Wills 1.2.840.8 [id number] [id number] Univers 13:00:00 13:28:21 Visit Cam 04003.1.1 ity of 3.104.2.7 [place] .3.396282 Medica l .8 [place] 2021-10-29 2021-10-29 Office Lucinda Wills 1.2.840.1 [id number] Univers 13:00:00 13:28:21 Visit Cam 46746.1.1 ity of 3.104.2.7 [place] .3.526710 Medica l .8 [place] 2021-10-29 2021-10-29 Outpatient R LUCINDA WILLS [facility] [id number] Univers 13:00:00 13:28:21 ity of [facility] 2021-10-29 2021-10-29 Office Lucinda Wills 1.2.840.3 [id number] Univers 13:00:00 13:28:21 Visit Cam 07424.1.1 ity of 3.104.2.7 [place] .3.375390 Medica l .8 [place] 2021-10-29 2021-10-29 Outpatient R LUCINDA WILLS [facility] [id number] Univers 13:00:00 13:00:00 ity of [facility] 2021-10-29 2021-10-29 Outpatient LUCINDA PHAN [facility] [id number] Univers 13:00:00 13:00:00 ity of [facility] 2021-10-29 2021-10-29 Travel 1.2.840.1 1.2.885.469 3764 6547 Univers 00:00:00 00:00:00 51072.1.1 350.1.13.10 ity of 3.104.2.7 4.2.7.3.698 [place] .3.081050 084.8 Medica l .8 [place] 2021-10-29 2021-10-29 Travel 1.2.840.1 1.2.999.880 8771 6547 Univers 00:00:00 00:00:00 05164.1.1 350.1.13.10 ity of 3.104.2.7 4.2.7.3.698 [place] .3.888339 084.8 Med[place] l .8 [place] 2021-10-29 2021-10-29 Travel 1.2.840.1 1.2.652.438 0588 6547 Univers 00:00:00 00:00:00 56044.1.1 350.1.13.10 ity of 3.104.2.7 4.2.7.3.698 [place] .3.533399 084.8 Medica l .8 [place] 2021-10-27 2021-10-27 Outpatient Escobar RODERICKALTAFSHIVANI [facility] [id number] Univers 14:30:00 15:05:35 SHIVANI VAUGHN [facility] 2021-10-27 2021-10-27 Outpatient Escobar VAUGHN SHIVANI [facility] [id number] Univers 14:30:00 14:30:00 SHIVANI VAUGHN [facility] 2021-10-27 2021-10-27 Slash Trimmer Pat Patel 1.2.840.1 [id number] Univers 12:30:00 12:45:00 Visit Pcp-Lab 12154.1.1 ity of 3.104.2.7 [place] .3.664278 Medica l .8 [place] 2021-10-27 2021-10-27 Slash Trimmer Pat Patel 1.2.840.[id number] [facility] [place] 12:30:00 12:45:00 Visit Pcp-Lab 02792.1.1 ity of 3.104.2.7 [place] .3.721702 Medica l .8 [place] 2021-10-27 2021-10-27 Slash Trimmer Pat Patel 1.2.840.[id number] [facility] 12:30:00 12:45:00 Visit Pcp-Lab 85804.1.1 ity of 3.104.2.7 [place] .3.652880 Medica l .8 [place] 2021-10-27 2021-10-27 Slash Trimmer Pat Patel 1.2.840.[id number] [facility] 12:30:00 12:45:00 Visit Pcp-Lab 18004.1.1 ity of 3.104.2.7 [place] .3.960566 Medica l .8 [place] 2021-10-27 2021-10-27 Travel 1.2.840.1 1.2.614.[address] [facility] 00:00:00 00:00:00 14551.1.1 350.1.13.10 ity of 3.104.2.7 4.2.7.3.698 [place] .3.736763 084.8 Medica l .8 [place] 2021-10-27 2021-10-27 Travel 1.2.840.1 1.2.506.246 2433 7104 [facility] 00:00:00 00:00:00 41329.1.1 350.1.13.10 ity of 3.104.2.7 4.[place]7.3.698 [place] .3.332454 084.8 [place] .8 [place] 2021-10-27 2021-10-27 Travel 1.2.840.1 1.2.788.[address] [facility] [place] 00:00:00 00:00:00 89042.1.1 350.1.13.10 ity of 3.104.2.7 4.[place]7.3.698 [place] .3.525285 084.8 [place] .8 [place] 2021-10-27 2021-10-27 Travel 1.2.840.1 1.2.027.[address] [facility] [place] 00:00:00 00:00:00 86868.1.1 350.1.13.10 ity of 3.104.2.7 4.[place].7.3.698 [place] .3.332545 084.8 Medica l .8 [place] 2021-10-06 2021-10-06 SHIVANI Hamm [facility] [id number] [facility] [place] 15:15:00 16:31:02 SHIVANI VAUGHN ity [facility] 2021-10-06 2021-10-06 Travel 1.2.840.1 1.2.623.[address] [facility] [place] 00[place]00:00 00:00:00 44307.1.1 350.1.13.10 ity of 3.104.2.7 4.2.7.3.698 [place] .3.162695 084.8 Medica l .8 [place] 2021-10-06 2021-10-06 Travel 1.2.840.1 1.2.738.[address] [facility] [place] 00:00:00 00:00:00 57057.1.1 350.1.13.10 ity of 3.104.2.7 4.2.7.3.698 [place] .3.428596 084.8 [place] .8 [place] 2021-10-06 2021-10-06 Travel 1.2.840.1 1.2.810.[address] [facility] [place] 00:00:00 00:00:00 42270.1.1 350.1.13.10 ity of 3.104.2.7 4.2.7.3.698 [place] .3.502220 084.8 Medica l .8 [place] 2021-09-13 2021-09-13 Outpatient R REYNALDO, [facility] [id number] Univers 11:00:00 11:00:00 JAMES erickson o f [facility] 2021-09-02 2021-09-02 Outpatient R GEOVANNI, [facility] [id number] Univers 13:00:00 13:00:00 HONORIO ity [facility] 2021-09-02 2021-09-02 [facility] [id number] Univers 13:00:00 13:00:00 HONORIO ity [facility] 2021-09-02 2021-09-02 Travel 1.2.840.1 1.2.911.185 8374 361 [facility] 00:00:00 00:00:00 07130.1.1 350.1.13.10 ity of 3.104.2.7 4.2.7.3.698 [place] .3.473473 084.8 Med[place] l .8 [place] 2021-09-02 2021-09-02 Travel 1.2.840.1 1.2.831.347 5677 3611 [facility] 00:00:00 00:00:00 58380.1.1 350.1.13.10 ity of 3.104.2.7 4.2.7.3.698 [place] .3.150216 084.8 Medica l .8 [place] 2021-09-02 2021-09-02 Travel 1.2.840.1 1.2.228.027 5590 3611 [facility] 00:00:00 00:00:00 41809.1.1 350.1.13.10 ity of 3.104.2.7 4.[place].7.3.698 [place] .3.674524 084.8 [place] l .8 [place] 2021-08-26 2021-08-26 [facility] [id number] Univers 12:59:32 23:59:00 BOUCHRA itadrian [facility] 2021-08-26 2021-08-26 [facility] Arnaldo, 1.2.840.3 [id number] Univers 12:59:32 23:59:00 Encounter Bouchra 70287.1.1 it y of 3.104.2.7 [place] .3.051977 Medica l .8 [place] 2021-08-26 2021-08-26 [facility], 1.2.840.6 [id number] Univers 12:59:32 23:59:00 Encounter Bouchra 58151.1.1 it y of 3.104.2.7 [place] .3.280627 Medica l .8 [place] 2021-08-26 2021-08-26 [facility], 1.2.840.3 [id number] Univers 12:59:32 23:59:00 Encounter Bouchra 91174.1.1 it y of 3.104.2.7 [place] .3.647343 Medica l .[address] [place] [address] 2021-08-26 2021-08-26 [facility] [id number] Univers 13:00:00 13:47:55 BOUCHRA ity of [facility] 2021-08-26 2021-08-26 Office [facility], 1.2.840.4 [id number] Univers 13:00:00 13:47:55 Visit Bouchra 14843.1.1 ity of 3.104.2.7 [place] .3.934347 Medica l .[address] [place] [address] 2021-08-26 2021-08-26 [facility] [id number] Univers 13:00:00 13:47:55 BOUCHRA ity of [facility] 2021-08-26 2021-08-26 Office Arnaldo, 1.2.840.6 [id number] Univers 13:00:00 13:47:55 Visit Bouchra 67043.1.1 ity of 3.104.2.7 [place] .3.908815 Medica l .8 [place] 2021-08-26 2021-08-26 Travel 1.2.840.1 1.2.728.689 9119 7347 [facility] 00:00:00 00:00:00 98593.1.1 350.1.13.10 ity of 3.104.2.7 4.[place]7.3.698 [place] .3.735862 084.8 [place] l .8 [place] 2021-08-26 2021-08-26 Travel 1.2.840.1 1.2.904.[address] [facility] [place] 00:00:00 00:00:00 28973.1.1 350.1.13.10 ity of 3.104.2.7 4.2.7.3.698 [place] .3.638919 084.8 [place] l .8 [place] 2021-08-26 2021-08-26 Travel 1.2.840.1 1.2.906.190 8440 7347 [facility] 00:00:00 00:00:00 37946.1.1 350.1.13.10 ity of 3.104.2.7 4.[place].7.3.698 [place] .3.763394 084.8 Med[place] l .8 [place] 2021-08-03 2021-08-03 Slash Trimmer Sharita, [facility] 1.2.8 40.114 [id number] Univers 17:15:00 17:30:00 Visit Shivani Vaughn 350.1.13.10 ity of [place]7.[place] PROFESSIO [id number] Pa dical NAL 353 [facility] 2021-08-03 2021-08-03 Slash Trimmer Shivani Vaughn 1.2.840.6 [id number] Univers 17:15:00 17:30:00 Visit Moshe, [facility] Lab Main 00291.1.1 ity of 3.104.2.7 [place] .3.143375 Medica l .8 [place] 2021-08-03 2021-08-03 Slash Trimmer Shivani Vaughn 1.2.840.4 [id number] Univers 17:15:00 17:30:00 Visit [facility], [facility] Lab Main 31260.1.1 ity of 3.104.2.7 [place] .3.624682 Medica l .8 [place] 2021-08-03 2021-08-03 SHIVANI Hamm [facility] [id number] Univers 17:15:00 17:15:00 SHIVANI VAUGHN ity of [facility] 2021-08-02 2021-08-02 Outpatient R REYNALDO, [facility] [id number] Univers 10:15:00 11:07:50 JAMES bernaly o f [facility] 2021-08-02 2021-08-02 Travel 1.2.840.1 1.2.346.452 0480 6890 Univers 00:00:00 00:00:00 10851.1.1 350.1.13.10 ity of 3.104.2.7 [place].3.698 [place].0548[place] 084.8 [place] .8 [place] 2021-08-02 2021-08-02 Travel 1.2.840.1 1.2.381.698 1224 6890 Univers 00:00:00 00:00:00 30475.1.1 350.1.13.10 ity of 3.104.2.7 [place]7.3.698 [place].588460 084.8 [place] .8 [place] 2021-08-02 2021-08-02 Travel 1.2.840.1 1.2.579.471 8778 6890 Univers 00:00:00 00:00:00 66776.1.1 350.1.13.10 ity of 3.104.2.7 [place]7.3.698 [place].355404 084.8 [place] .8 [place] 2021-07-29 2021-07-29 [facility]patient [facility] [id number] Univers 13:26:56 23:59:00 BOUCHRA ity of [facility] 2021-07-29 2021-07-29 [facility], 1.2.840.6 [id number] Univers 13:26:56 23:59:00 Encounter Bouchra 09342.1.1 it y of 3.104.2.7 [place] .3.278509 Medica l .8 [place] 2021-07-29 2021-07-29 [facility], 1.2.840.5 [id number] Univers 13:26:56 23:59:00 Encounter Bouchra 87697.1.1 it y of 3.104.2.7 [place] .3.362038 Medica l .8 [place] 2021-07-29 2021-07-29 [facility] 1.2.840[facility]8 [id number] Univers 13:26:56 23:59:00 Encounter Bouchra 91150.1.1 it y of 3.104.2.7 [place] .3.716495 Medica l .8 [place] 2021-07-29 2021-07-29 Office [facility] 1.2.272.569 3749 [id number] Univers 13:20:00 15:16:49 Visit Bouchra EILEEN 350.1.13.10 it y of CARE 4.2.7.2.686 Michelle john KEISHA [id number] Pa dical 198 [place] 2021-07-29 2021-07-29 Outpatient [facility] [id number] Univers 13:20:00 15:16:49 BOUCHRA ity of [facility] 2021-07-29 2021-07-29 Office Arnaldo, 1.2.840.1 [id number] [id number] Univers 13:20:00 15:16:49 Visit Bouchra 57986.1.1 ity of 3.104.2.7 [place] .3.462653 Medica l .8 [place] 2021-07-29 2021-07-29 Office Arnaldo, 1.2.840.6 [id number] [id number] Univers 13:20:00 15:16:49 Visit Bouchra 13612.1.1 ity of 3.104.2.7 [place] .3.283391 Medica l .8 [place] 2021-07-29 2021-07-29 Letter Arnaldo, 1.2.840.8 [id number] [id number] Univers 00:00:00 00:00:00 (Out) Bouchra 16964.1.1 ity of 3.104.2.7 [place] .3.717451 Medica l .8 [place] 2021-07-29 2021-07-29 Travel 1.2.840.1 1.2.129.863 8246 9351 Univers 00:00:00 00:00:00 68651.1.1 350.1.13.10 ity of 3.104.2.7 4.[place].7.3.698 [place]3.157573 084.8 [place] .8 [place] 2021-07-29 2021-07-29 Letter Arnaldo, 1.2.840.0 [id number] [id number] Univers 00:00:00 00:00:00 (Out) Bouchra 46336.1.1 ity of 3.104.2.7 [place] .3.341641 Medica l .8 [place] 2021-07-29 2021-07-29 Travel 1.2.840.1 1.2.934.477 1381 9351 Univers 00:00:00 00:00:00 64583.1.1 350.1.13.10 ity of 3.104.2.7 4.[place].7.3.698 [place]3.7432[place] 084.8 [place] .8 [place] 2021-07-29 2021-07-29 Dustin Mcintosh, 1.2.840.9 [id number] [id number] Univers 00:00:00 00:00:00 (Out) Bouchra 95467.1.1 ity of 3.104.2.7 [place] .3.214079 Medica l .8 [place] 2021-07-29 2021-07-29 Travel 1.2.840.1 1.2.184.535 4908 9351 Univers 00:00:00 00:00:00 24240.1.1 350.1.13.10 ity of 3.104.2.7 4.2.7.3.698 [place]3.996404 084.8 [place] .8 [place] 2021-07-22 2021-07-22 [facility] 1.2.840.114 9 [id number] Univers 14:00:00 23:59:00 Ryan Burnham 350.1.13.10 ity of LIYA 4.2.7.2.686 [facility] [id number] [facility] torito [address] [place] 2021-07-22 2021-07-22 [facility] 1.2.840.4 [id number] Univers 14:00:00 23:59:00 Encounter , Ryan 69138.1.1 it y of 3.104.2.7 [place] .3.856331 Medica l .8 [place] 2021-07-22 2021-07-22 [facility] 1.2.840.3 [id number] Univers 14:00:00 23:59:00 Encounter , Ryan 39739.1.1 it y of 3.104.2.7 [place] .3.827695 Medica l .8 [place] 2021-07-22 2021-07-22 [facility] 1.2.840.5 [id number] Univers 14:00:00 23:59:00 Encounter , Ryan 41014.1.1 it y of 3.104.2.7 [place] .3.967456 Medica l .8 [place] 2021-07-22 2021-07-22 [facility] 1.2.840.114 9 [id number] Univers 10:46:11 13:59:00 Encounter , Ryan SPECIALTY 350.1.13.10 ity of CARE 4.2.7.2.686 [facility] AT [id number] Pa aidee CALHOUN 809 [facility] 2021-07-22 2021-07-22 [facility] 1.2.840.3 [id number] Univers 10:46:11 13:59:00 Encounter , Ryan 45815.1.1 it y of 3.104.2.7 [place] .3.240810 Medica l .8 [place] 2021-07-22 2021-07-22 [facility] 1.2.840.8 [id number] Univers 10:46:11 13:59:00 Encounter , Ryan 01980.1.1 it y of 3.104.2.7 [place] .3.688930 Medica l .8 [place] 2021-07-22 2021-07-22 [facility] 1.2.840.4 [id number] Univers 10:46:11 13:59:00 Encounter , Ryan 57663.1.1 it y of 3.104.2.7 [place] .3.329393 Medica l .8 [place] 2021-07-22 2021-07-22 Outpatient R GALARZA, [facility] [id number] Univers 13:00:00 13:45:02 HONORIO ity of [facility] 2021-07-22 2021-07-22 Outpatient R GALARZA, [facility] [id number] Univers 13:00:00 13:45:02 HONORIO ity of [facility] 2021-07-22 2021-07-22 Outpatient R GALARZA, [facility] [id number] Univers 13:00:00 13:00:00 HONORIO ity [facility] 2021-07-22 2021-07-22 Office Alijanipour 1.2.840.2 [id number] Univers 10:15:00 11:55:28 Visit , Ryan 25215.1.1 ity of 3.104.2.7 [place] .3.471088 Medica l .8 [place] 2021-07-22 2021-07-22 Outpatient R ALIJANIPDENA [facility] [id number] Univers 10:15:00 11:55:28 , RYAN ity of [facility] 2021-07-22 2021-07-22 Office Alijanipour 1.2.840.1 [id number] Univers 10:15:00 11:55:28 Visit , Ryan 85703.1.1 ity of 3.104.2.7 [place] .3.244696 Medica l .8 [place] 2021-07-22 2021-07-22 Office Alijanipour 1.2.840.7 [id number] Univers 10:15:00 11:55:28 Visit , Ryan 94220.1.1 ity of 3.104.2.7 [place] .3.586935 Medica l .8 [place] 2021-07-22 2021-07-22 Outpatient R ALIJANIPOUR [facility] [id number] Univers 10:46:11 10:46:11 , RYAN ity of [facility] 2021-07-22 2021-07-22 Outpatient R ALIBRANDI [facility] [id number] Univers 10:15:00 10:15:00 , RYAN ity of [facility] 2021-07-22 2021-07-22 Outpatient R ALIBRANDI [facility] [id number] Univers 10:15:00 10:15:00 , RYAN ity of [facility] 2021-07-22 2021-07-22 Abstract Alibrandi 1.2.840.7 [id number] Univers 00:00:00 00:00:00 , Ryan 74216.1.1 ity of 3.104.2.7 [place] .3.512866 Medica l .8 [place] 2021-07-22 2021-07-22 Travel 1.2.840.1 1.2.759.514 9674 8425 Univers 00:00:00 00:00:00 25251.1.1 350.1.13.10 ity of 3.104.2.7 4.[place].7.3.698 [place]3.625791 084.8 [place] l .8 [place] 2021-07-22 2021-07-22 Letter Alijanipour 1.2.840.1 [id number] Univers 00:00:00 00:00:00 (Out) , Ryan 57622.1.1 ity of 3.104.2.7 [place] .3.052484 Medica l .8 [place] 2021-07-22 2021-07-22 Letter Alijanipour 1.2.840.2 [id number] Univers 00:00:00 00:00:00 (Out) , Ryan 21970.1.1 ity of 3.104.2.7 [place] .3.537684 Medica l .8 [place] 2021-07-22 2021-07-22 Travel 1.2.840.1 1.2.590.958 4355 8425 Univers 00:00:00 00:00:00 29989.1.1 350.1.13.10 ity of 3.104.2.7 4.2.7.3.698 [place]3.528168 084.8 Med[place] l .8 [place] 2021-07-22 2021-07-22 Abstract Alijanipour 1.2.840.2 [id number] Univers 00:00:00 00:00:00 , Ryan 71954.1.1 ity of 3.104.2.7 [place] .3.341651 Medica l .8 [place] 2021-07-22 2021-07-22 Letter Alijanipour 1.2.840.6 [id number] Univers 00:00:00 00:00:00 (Out) , Ryan 15829.1.1 ity of 3.104.2.7 [place] .3.404719 Medica l .8 [place] 2021-07-22 2021-07-22 Travel 1.2.840.1 1.2.149.786 7633 8425 Univers 00:00:00 00:00:00 33641.1.1 350.1.13.10 ity of 3.104.2.7 4.2.7.3.698 [place] .3.689259 084.8 Med[place] l .8 [place] 2021-07-22 2021-07-22 Abstract Alijanipour 1.2.840.3 [id number] Univers 00:00:00 00:00:00 , Ryan 85141.1.1 ity of 3.104.2.7 [place] .3.861403 Medica l .8 [place] 2021-07-22 2021-07-22 Letter Alijanipour 1.2.840.3 [id number] Univers 00:00:00 00:00:00 (Out) , Ryan 03258.1.1 ity of 3.104.2.7 [place] .3.943401 Medica l .8 [place] 2021-07-22 2021-07-22 Travel 1.2.840.1 1.2.988.049 1392 8425 Univers 00:00:00 00:00:00 12809.1.1 350.1.13.10 ity of 3.104.2.7 4.2.7.3.698 [place]3.781372 084.8 Med[place] l .8 [place] 2021-07-22 2021-07-22 Abstract Benjamín 1.2.840.7 [id number] Univers 00:00:00 00:00:00 , Ryan 65727.1.1 ity of 3.104.2.7 [place] .3.964197 Medica l .8 [place] 2021-07-21 2021-07-21 Outpatient R [facility] [id number] Univers 14:30:00 15:30:35 RODERICK SHIVANI ity [facility] 2021-07-21 2021-07-21 Outpatient R [facility] [id number] Univers 14:30:00 15:30:35 [facility] 2021-07-21 Outpatient R [facility] [id number] Univers 14:30:00 14:30:00 RODERICKALTAFSHIVANI [facility] [place] [facility] 2021-07-15 2021-07-15 Orders Doctor 1.2.840.7 [id number] Univers 00:00:00 00:00:00 Only Unassigned, 41594.1.1 ity of [place] 3.104.2.7 [place] .3.181308 Medica l .8 [place] 2021-07-15 2021-07-15 Orders Doctor 1.2.840.2 [id number] Univers 00:00:00 00:00:00 Only Unassigned, 05848.1.1 ity of [place] 3.104.2.7 [place] .3.982968 Medica l .8 [place] 2021-07-15 2021-07-15 Orders Doctor 1.2.840.4 [id number] Univers 00:00:00 00:00:00 Only Unassigned, 10191.1.1 ity of [place] 3.104.2.7 [place] .3.205105 Medica l .8 [place] 2021-07-15 2021-07-15 Orders Doctor 1.2.840.2 [id number] Univers 00:00:00 00:00:00 Only Unassigned, 76934.1.1 ity of [place] 3.104.2.7 [place] .3.109727 Medica l .8 [place] 2021-07-09 2021-07-09 Emergency [facility] [id number] [facility] 12:46:00 12:46:00 14 2021-07-08 2021-07-08 Outpatient Escobar GALARZA, [facility] [id number] Univers 13:00:00 13:00:00 HONORIO ity [facility] 2021-07-08 2021-07-08 Outpatient Escobar GALARZA, [facility] [id number] Univers 13:00:00 13:00:00 HONORIO ity [facility] 2021-06-30 2021-06-30 Telephone Nazeer, 1.2.840.8 [id number] Univers 00:00:00 00:00:00 Jerry 05132.1.1 ity of 3.104.2.7 [place] .3.162095 Medica l .8 [place] 2021-06-30 2021-06-30 Telephone Nazeer, 1.2.840.2 [id number] Univers 00:00:00 00:00:00 Jerry 48253.1.1 ity of 3.104.2.7 [place] .3.800150 Medica l .8 [place] 2021-06-30 2021-06-30 Telephone Nazeer, 1.2.840.9 [id number] 900 [id number] Univers 00:00:00 00:00:00 Jerry 82375.1.1 ity of 3.104.2.7 [place] .3.694164 Medica l .8 [place] 2021-06-30 2021-06-30 Telephone Nazeer, 1.2.840.7 [id number] 900 [id number] Univers 00:00:00 00:00:00 Jerry 94849.1.1 ity of 3.104.2.7 [place] .3.349806 Medica l .8 [place] 2021-06-24 2021-06-24 Imm/Inj Nurse, Pcp Immunization [facility] 1. 2.840.114 [id number] Univers 16:30:00 16:40:00 Visit Gideon Montez PRIMARY 350.1.13. 10 ity of CARE 4.2.7.2.686 Michelle VALDES [id number] Pa dical 421 [place] 2021-06-24 2021-06-24 Imm/Inj Gideon Montez 1.2.840.8 [id number] Univers 16:30:00 16:40:00 Visit Nurse, Pcp Immunization 66046.1.1 ity of 3.104.2.7 [place] .3.629920 Medica l .8 [place] 2021-06-24 2021-06-24 Imm/Inj Gideon Montez 1.2.840.3 [id number] Univers 16:30:00 16:40:00 Visit Nurse, Pcp Immunization 51999.1.1 ity of 3.104.2.7 [place] .3.622968 Medica l .8 [place] 2021-06-24 2021-06-24 Imm/Inj Gideon Montez 1.2.840.5 794 [id number] Univers 16:30:00 16:40:00 Visit Nurse, Pcp Immunization 96282.1.1 ity of 3.104.2.7 [place] .3.441770 Medica l .8 [place] 2021-06-24 2021-06-24 Imm/Inj Gideon Montez 1.2.840.3 [id number] [id number] Univers 16:30:00 16:40:00 Visit Nurse, Pcp Immunization 14563.1.1 ity of 3.104.2.7 [place] .3.581141 Medica l .8 [place] 2021-06-24 2021-06-24 Outpatient R CARLOS MANUEL [facility] [id number] Univers 16:30:00 16:30:00 GIDEON erickson of [facility] 2021-06-24 2021-06-24 Slash Trimmer Pcp-Lab [facility] 1.2.840.114 [id number] Univers 16:15:00 16:30:00 Visit Bethel Isaacs PRIMARY 350.1.13.10 ity of CARE 4.2.7.2.686 Michelle VALDES [id number] Pa dical 366 [place] 2021-06-24 2021-06-24 Slash Trimmer Bethel Isaacs 1.2.840.6 [id number] Univers 16:15:00 16:30:00 Visit Pcp-Lab 56845.1.1 ity of 3.104.2.7 [place] .3.853454 Medica l .8 [place] 2021-06-24 2021-06-24 Slash Trimmer Bethel Isaacs 1.2.840.4 [id number] Univers 16:15:00 16:30:00 Visit Pcp-Lab 05019.1.1 ity of 3.104.2.7 [place] .3.441815 Medica l .8 [place] 2021-06-24 2021-06-24 Slash Trimmer Bethel Isaacs 1.2.840.8 924 [id number] Univers 16:15:00 16:30:00 Visit Pcp-Lab 77117.1.1 ity of 3.104.2.7 [place] .3.218252 Medica l .8 [place] 2021-06-24 2021-06-24 Slash Trimmer Bethel Isaacs 1.2.840.8 957 [id number] Univers 16:15:00 16:30:00 Visit Pcp-Lab 62134.1.1 ity of 3.104.2.7 [place] .3.227828 Medica l .8 [place] 2021-06-24 2021-06-24 Outpatient R KOURTNEY [facility] [id number] Univers 16:15:00 16:15:00 BETHEL erickson of [facility] 2021-06-24 2021-06-24 Outpatient R KOURTNEY [facility] [id number] Univers 14:40:00 16:08:00 BETHEL erickson [facility] 2021-06-24 2021-06-24 Office Bethel Isaacs 1.2.840.4 [id number] Univers 14:40:00 16:08:00 Visit Health, Tg Hormone 72868.1.1 ity of 3.104.2.7 [place] .3.978679 Medica l .8 [place] 2021-06-24 2021-06-24 [facility] [id number] Univers 14:40:00 16:08:00 BETHEL gabeadrian [facility] 2021-06-24 2021-06-24 Office Bethel Isaacs 1.2.840.1 [id number] Univers 14:40:00 16:08:00 Visit Health, Tg Hormone 57897.1.1 ity of 3.104.2.7 [place] .3.566180 Medica l .8 [place] 2021-06-24 2021-06-24 Office Bethel Isaacs 1.2.840.9 [id number] Univers 14:40:00 16:08:00 Visit Health, Tg Hormone 79864.1.1 ity of 3.104.2.7 [place] .3.071986 Medica l .8 [place] 2021-06-24 2021-06-24 Office Bethel Isaacs 1.2.840.9 [id number] Univers 14:40:00 16:08:00 Visit Health, Tg Hormone 83450.1.1 ity of 3.104.2.7 [place] .3.379082 Medica l .8 [place] 2021-06-24 2021-06-24 Outpatient R KOURTNEY [facility] [id number] Univers 14:40:00 14:40:00 BETHEL ity [facility] 2021-06-24 2021-06-24 Travel 1.2.840.1 1.2.268.385 0828 0448 Univers 00:00:00 00:00:00 21973.1.1 350.1.13.10 ity of 3.104.2.7 4.2.7.3.698 [place] .3.836145 084.8 Medica l .8 [place] 2021-06-24 2021-06-24 Travel 1.2.840.1 1.2.740.833 9622 0448 Univers 00:00:00 00:00:00 78219.1.1 350.1.13.10 ity of 3.104.2.7 4.2.7.3.698 [place] .3.637959 084.8 Medica l .8 [place] 2021-06-24 2021-06-24 Travel 1.2.840.1 1.2.045.904 6951 0448 Univers 00:00:00 00:00:00 36738.1.1 350.1.13.10 ity of 3.104.2.7 4.2.7.3.698 [place] .3.059720 084.8 Medica l .8 [place] 2021-06-24 2021-06-24 Travel 1.2.840.1 1.2.167.886 6888 0448 Univers 00:00:00 00:00:00 82117.1.1 350.1.13.10 ity of 3.104.2.7 4.2.7.3.698 [place] .3.030885 084.8 Medica l .8 [place] 2021-06-17 2021-06-17 Slash Trimmer James Jacobs 1.2.840.2 288590 [id number] Univers 16:00:00 16:15:00 Visit Pcp-Lab 56051.1.1 ity of 3.104.2.7 [place] .3.168153 Medica l .8 [place] 2021-06-17 2021-06-17 Slash Trimmer James Jacobs 1.2.840.5 557692 [id number] [id number] Univers 16:00:00 16:15:00 Visit Pcp-Lab 81746.1.1 ity of 3.104.2.7 [place] .3.769734 Medica l .8 [place] 2021-06-17 2021-06-17 Slash Trimmer James Jacobs 1.2.840.5 [id number] Univers 16:00:00 16:15:00 Visit Pcp-Lab 87471.1.1 ity of 3.104.2.7 [place] .3.338947 Medica l .8 [place] 2021-06-17 2021-06-17 Slash Trimmer James Jacobs 1.2.840.4 [id number] Univers 16:00:00 16:15:00 Visit Pcp-Lab 51332.1.1 ity of 3.104.2.7 [place] .3.005566 Medica l .8 [place] 2021-06-17 2021-06-17 Slash Trimmer James Jacobs 1.2.840.9 [id number] Univers 16:00:00 16:15:00 Visit Pcp-Lab 16063.1.1 ity of 3.104.2.7 [place] .3.136333 Medica l .8 [place] 2021-06-17 2021-06-17 [facility] [id number] Univers 14:00:00 14:00:[facility] 2021-06-17 Out[facility] [id number] Univers 14:00:00 14:00:00 LESLIE ity [facility] 2021-06-17 2021-06-17 Travel 1.2.840.1 1.2.737.130 8548 3149 Univers 00:00:00 00:00:00 12392.1.1 350.1.13.10 ity of 3.104.2.7 4.2.7.3.698 [place] .3.536112 084.8 Medica l .8 [place] 2021-06-17 2021-06-17 Travel 1.2.840.1 1.2.339.878 5232 3149 Univers 00:00:00 00:00:00 78249.1.1 350.1.13.10 ity of 3.104.2.7 4.2.7.3.698 [place] .3.883913 084.8 Medica l .8 [place] 2021-06-17 2021-06-17 Travel 1.2.840.1 1.2.079.976 9982 3149 Univers 00:00:00 00:00:00 26325.1.1 350.1.13.10 ity of 3.104.2.7 4.2.7.3.698 [place] .3.048532 084.8 Medica l .8 [place] 2021-06-17 2021-06-17 Travel 1.2.840.1 1.2.346.660 4837 3149 Univers 00:00:00 00:00:00 66368.1.1 350.1.13.10 ity of 3.104.2.7 4.2.7.3.698 [place] .3.894792 084.8 Medica l .8 [place] 2021-06-17 2021-06-17 Travel 1.2.840.1 1.2.589.[address] [facility] [place] 00:00:00 00:00:00 08062.1.1 350.1.13.10 ity of 3.104.2.7 4.2.7.3.698 [place] .3.371932 084.8 Medica l .8 [place] 2021-06-14 2021-06-14 Outpatient R SELF, [facility] [id number] Univers 11:00:00 12:13:42 JAMES erickson o f [facility] 2021-06-14 2021-06-14 Travel 1.2.840.1 1.2.812.[address] [facility] [place] 00:00:00 00:00:00 00559.1.1 350.1.13.10 ity of 3.104.2.7 4.2.7.3.698 [place] .3.818508 084.8 Medica l .8 [place] 2021-06-14 2021-06-14 Travel 1.2.840.1 1.2.396.961 4109 7514 Univers 00:00:00 00:00:00 73833.1.1 350.1.13.10 ity of 3.104.2.7 4.2.7.3.698 [place] .3.273188 084.8 Medica l .8 [place] 2021-06-14 2021-06-14 Travel 1.2.840.1 1.2.851.762 6809 7514 Univers 00:00:00 00:00:00 91837.1.1 350.1.13.10 ity of 3.104.2.7 4.2.7.3.698 [place] .3.830129 084.8 Medica l .8 [place] 2021-06-14 2021-06-14 Travel 1.2.840.1 1.2.028.646 7063 7514 Univers 00:00:00 00:00:00 86939.1.1 350.1.13.10 ity of 3.104.2.7 4.2.7.3.698 [place] .3.466499 084.8 Medica l .8 [place] 2021-06-10 2021-06-10 Patient Burton, 1.2.840.9 [id number] 075 Univers 00:00:00 00:00:00 Outreach Britt J 30756.1.1 ity of 3.104.2.7 [place] .3.523929 Medica l .8 [place] 2021-06-10 2021-06-10 Patient Burton, 1.2.840.0 [id number] Univers 00:00:00 00:00:00 Outreach Britt J 68571.1.1 ity of 3.104.2.7 [place] .3.816706 Medica l .8 [place] 2021-06-10 2021-06-10 Patient Burton, 1.2.840.2 [id number] Univers 00:00:00 00:00:00 Outreach Britt J 06305.1.1 ity of 3.104.2.7 [place] .3.810371 Medica l .8 [place] 2021-06-10 2021-06-10 Patient Burton, 1.2.840.1 [id number] Univers 00:00:00 00:00:00 Outreach Britt J 44959.1.1 ity of 3.104.2.7 [place] .3.956752 Medica l .8 [place] 2021-06-03 2021-06-03 Outpatient Escobar GALARZA [facility] [id number] Univers 14:00:00 14:22:42 HONORIO ity of [facility] 2021-06-03 2021-06-03 Travel 1.2.840.1 1.2.028.886 [id number] [id number] Univers 00:00:00 00:00:00 27432.1.1 350.1.13.10 ity of 3.104.2.7 4.[place]7.3.698 [place] .3.350962 084.8 Medica l .8 [place] 2021-06-03 2021-06-03 Travel 1.2.840.1 1.2.520.580 5522 4897 Univers 00:00:00 00:00:00 22538.1.1 350.1.13.10 ity of 3.104.2.7 4.[place]7.3.698 [place] .3.520807 084.8 Medica l .8 [place] 2021-06-03 2021-06-03 Travel 1.2.840.1 1.2.743.418 4992 4897 Univers 00:00:00 00:00:00 03979.1.1 350.1.13.10 ity of 3.104.2.7 4.2.7.3.698 [place] .3.999925 084.8 Medica l .8 [place] 2021-06-03 2021-06-03 Travel 1.2.840.1 1.2.968.661 3912 4897 Univers 00:00:00 00:00:00 50168.1.1 350.1.13.10 ity of 3.104.2.7 4.[place].7.3.698 [place] .3.498505 084.8 Medica l .8 [place] 2021-05-26 2021-05-26 [facility], 1.2.840.6 [id number] Univers 09:40:00 23:59:00 Encounter Burke De La Cruz 89500.1.1 ity of 3.104.2.7 [place] .3.451452 Medica l .8 [place] 2021-05-26 2021-05-26 [facility], 1.2.840.2 [id number] Univers 09:40:00 23:59:00 Encounter Burke De La Cruz 57325.1.1 ity of 3.104.2.7 [place] .3.485105 Medica l .8 [place] 2021-05-26 2021-05-26 [facility], 1.2.840.8 [id number] Univers 09:40:00 23:59:00 Encounter Burke De La Cruz 55889.1.1 ity of 3.104.2.7 [place] .3.504454 Medica l .8 [place] 2021-05-26 2021-05-26 Outpatient R KNOX, [facility] N[facility] [id number] Univers 00:00:00 00:00:00 BURKE ity of [facility] 2021-05-25 2021-05-25 Emergency [facility] [id number] [facility] 23:19:00 23:19:00 94 2021-05-24 2021-05-24 Outpatient R [facility] [id number] Univers 11:00:00 11:31:18 JAMES ity o f [facility] 2021-05-24 2021-05-24 Travel 1.2.840.1 1.2.754.498 2755 [id number] Univers 00:00:00 00:00:00 38832.1.1 350.1.13.10 ity of 3.104.2.7 4.[place]7.3.698 [place] .3.112222 084.8 Med[place] l .8 [place] 2021-05-24 2021-05-24 Travel 1.2.840.1 1.2.658.021 5836 1167 Univers 00:00:00 00:00:00 74823.1.1 350.1.13.10 ity of 3.104.2.7 4.2[place]7.3.698 [place] .3.817050 084.8 Medica l .8 [place] 2021-05-24 2021-05-24 Travel 1.2.840.1 1.2.586.706 4979 1167 Univers 00:00:00 00:00:00 42543.1.1 350.1.13.10 ity of 3.104.2.7 4.[place]7.3.698 [place] .3.948187 084.8 Medica l .8 [place] 2021-05-10 2021-05-10 Outpatient R REYNALDO, [facility] [id number] Univers 08:45:00 08:45:00 JAMES erickson o f [facility] 2021-04-29 2021-04-29 Outpatient R GEOVANNI, [facility] [id number] Univers 13:00:00 13:33:16 HONORIO ity [facility] 2021-04-29 2021-04-29 Outpatient R GALARZA, [facility] [id number] Univers 13:00:00 13:00:00 HONORIO ity [facility] 2021-04-29 2021-04-29 Travel 1.2.840.1 1.2.706.293 [id number] [id number] Univers 00:00:00 00:00:00 06047.1.1 350.1.13.10 ity of 3.104.2.7 4.[place]7.3.698 [place] .3.408526 084.8 Med[place] l .8 [place] 2021-04-29 2021-04-29 Travel 1.2.840.1 1.2.044.192 2242 6843 Univers 00:00:00 00:00:00 26735.1.1 350.1.13.10 ity of 3.104.2.7 4.2[place]7.3.698 [place] .3.486110 084.8 Med[place] l .8 [place] 2021-03-18 2021-03-18 Outpatient R GALARZA, [facility] [id number] Univers 15:00:00 15:00:00 HONORIO ity [facility] 2021-03-18 2021-03-18 Travel 1.2.840.1 1.2.432.370 [id number] Univers 00:00:00 00:00:00 82860.1.1 350.1.13.10 ity of 3.104.2.7 4.[place]7.3.698 [place] .3.874574 084.8 Medica l .8 [place] 2021-03-15 2021-03-15 [id number] Univers 10:15:00 10:15:00 JAMES erickson [facility] [facility] 2021-02-25 2021-02-25 [facility] [id number] Univers 09:00:00 09:00:00 HONORIO itadrian [facility] 2021-02-25 2021-02-25 Travel 1.2.840.1 1.2.733.889 [id number] Univers 00:00:00 00:00:00 03279.1.1 350.1.13.10 ity of 3.104.2.[place].698 [place].84[place] 084.8 [facility] .[facility] [place] 2021-02-15 2021-02-15 Outpatient [facility] [id number] Univers 11:00:00 11:00:00 JAMES anderson [facility] 2021-02-15 2021-02-15 Travel 1.2.840.1 1.2.669.373 [id number] Univers 00:00:00 00:00:00 99810.1.1 350.1.13.10 ity of 3.104.2.7 [place].698 [place]3.9045[place] 084.8 [place] .8 [place] 2021-02-11 2021-02-11 Outpatient [facility] [id number] Univers 11:00:00 11:00:00 HONORIO ity [facility] 2021-02-11 2021-02-11 Travel 1.2.840.1 1.2.980.391 [id number] Univers 00:00:00 00:00:00 51304.1.1 350.1.13.10 ity of 3.104.2.[place].698 [place]3.123970 084.8 [place] .8 [place] 2021-01-28 2021-01-28 Slash Trimmer Paolo Rivera 1.2.840.2 [id number] Univers 13:53:29 14:08:29 Visit Pcp-Lab 81259.1.1 ity of 3.104.2.7 [place] .3.781507 Med[facility] .8 [place] 2021-01-28 2021-01-28 Outpatient R GEOVANNI, [facility] [id number] Univers 13:00:00 13:00:00 HONORIO erickson [facility] 2021-01-28 2021-01-28 Travel 1.2.840.1 1.2.785.827 [id number] Univers 00:00:00 00:00:00 19616.1.1 350.1.13.10 ity of 3.104.2.[place].698 [place].48[place] 084.8 [place] .[place] 2021-01-25 2021-01-25 Outpatient R REYNALDO, [facility] [id number] Univers 09:30:00 09:30:00 JAMES braxton [facility] 2021-01-25 2021-01-25 Travel 1.2.840.1 1.2.165.594 [id number] Univers 00:00:00 00:00:00 44767.1.1 350.1.13.10 ity of 3.104.2.[place]7.3.698 [place]3.112977 084.8 [place] .8 [place] 2021-01-13 2021-01-13 Outpatient R REYNALDO, [facility] [id number] Univers 16:00:00 16:00:00 JAMES braxton [facility] 2021-01-13 2021-01-13 Travel 1.2.840.1 1.2.258.952 [id number] Univers 00:00:00 00:00:00 24032.1.1 350.1.13.10 ity of 3.104.2.7 [place]7.3.698 [place]3.632218 084.8 [place] .8 [place] 2020-12-31 2020-12-31 Slash Trimmer Tim Holguin 1.2.840.6 [id number] Univers 16:38:39 16:54:09 Visit Pcp-Lab 64933.1.1 ity of 3.104.2.7 [place] .3.360706 Med[place] l .8 [place] 2020-12-31 2020-12-31 Outpatient Escobar GALARZA [facility] [id number] Univers 16:00:00 16:00:00 HONORIO itadrian [facility] 2020-12-31 2020-12-31 Travel 1.2.840.1 1.2.796.679 [id number] Univers 00:00:00 00:00:00 46591.1.1 350.1.13.10 ity of 3.104.2.7 [place]7.3.698 [place]3.8166[place] 084.8 [place] .[place] 2020-12-28 2020-12-28 Orders Doctor 1.2.840.4 [id number] Univers 00:00:00 00:00:00 Only Unassigned, 70948.1.1 ity of [place] 3.104.2.7 [place] .3.454541 Medica l .8 [place] 2020-12-24 2020-12-24 Outpatient Escobar HOLGUIN [facility] [id number] Univers 11:00:00 11:00:00 TIM bernal y [facility] 2020-12-24 2020-12-24 Travel 1.2.840.1 1.2.845.096 [id number] Univers 00:00:00 00:00:00 14987.1.1 350.1.13.10 ity of 3.104.2.7 4.[place]7.3.698 [place]3.303761 084.8 [place] .[place] 2020-12-17 2020-12-17 Outpatient Escobar GALARZA [facility] [id number] Univers 11:00:00 11:00:00 HONORIO erickson [facility] 2020-11-26 2020-11-26 Outpatient Escobar GALARZA [facility] [id number] Univers 16:00:00 16:00:00 HONORIO erickson [facility] 2020-11-26 2020-11-26 Travel 1.2.840.1 1.2.717.663 [id number] Univers 00:00:00 00:00:00 03691.1.1 350.1.13.10 ity of 3.104.2.7 4.[place].7.3.698 [place] .3.235463 084.8 [place] .8 [place] 2020-11-26 2020-11-26 Travel 1.2.840.1 1.2.482.226 [id number] 0854 Univers 00:00:00 00:00:00 51051.1.1 350.1.13.10 ity of 3.104.2.7 4.[place].7.3.698 [place] .3.011810 084.8 [place] .8 [place] 2020-11-21 2020-11-21 Imm/Inj Gideon Montez 1.2.840.8 [id number] Univers 10:04:35 10:09:35 Visit [facility] 52385.1.1 ity of 3.104.2.7 [place] .3.660893 Medica l .8 [place] 2020-11-21 2020-11-21 Outpatient R CARLOS MANUEL [facility] [id number] Univers 10:05:00 10:05:00 GIDEON itadrian of [facility] 2020-11-17 2020-11-17 Outpatient R CHELSY ROMO [facility] [id number] Univers 15:45:00 15:45:00 ity of [facility] 2020-11-17 2020-11-17 Travel 1.2.840.1 1.2.998.448 [id number] Univers 00:00:00 00:00:00 57821.1.1 350.1.13.10 ity of 3.104.2.7 4.[place]7.3.698 [place] .3.931492 084.8 [place] .[place] 2020-11-16 2020-11-16 Orders Doctor 1.2.840.2 [id number] Univers 00:00:00 00:00:00 Only Unassigned, 45580.1.1 ity of [place] 3.104.2.7 [place] .3.932173 Medica l .8 [place] 2020-11-12 2020-11-12 Outpatient R GEOVANNI, [facility] [id number] Univers 08:00:00 08:00:00 HONORIO ity of [facility] 2020-11-12 2020-11-12 Travel 1.2.840.1 1.2.213.562 [id number] Univers 00:00:00 00:00:00 66291.1.1 350.1.13.10 ity of 3.104.2.7 [place]7.3.698 [place] .3.821238 084.8 [facility] [facility] [address] [place] [address] 2020-10-29 2020-10-29 Outpatient R EZIO, [facility] [id number] Univers 09:30:00 09:30:00 YAHIROPHYOLETTE it y of [facility] 2020-10-24 2020-10-24 Imm/Inj Gio Martinez 1.2.840.1 [id number] Univers 09:54:36 10:09:56 Visit Immunization, [place] [facility] 60214.1.1 ity of 3.104.2.7 [place] .3.464814 Medica l [address] [place] [address] 2020-10-24 2020-10-24 Outpatient Escobar MARTINEZ [facility] [id number] Univers 10:00:00 10:00:00 GIO ity of [facility] 2020-10-24 2020-10-24 Travel 1.2.840.1 1.2.923.116 [id number] Univers 00:00:00 00:00:00 81102.1.1 350.1.13.10 ity of 3.104.2.7 4.[place].7.3.698 [place] .3.494598 084.8 [place] .8 [place] 2020-09-25 2020-09-26 Emergency E BRINDA [facility] [id number] [place] 23:49:00 10:04:00 ALAINA [facility] 2020-09-17 2020-09-17 Telephone Simon 1.2.840.7 [id number] Univers 00:00:00 00:00:00 Nilton A 58653.1.1 i ty of 3.104.2.7 [place] .3.920933 Med[facility] .[facility] [place] 2020-08-18 2020-08-18 Outpatient R CHELSY ROMO [facility] [id number] Univers 15:00:00 15:00:00 ity of [facility] 2020-07-08 2020-07-08 Office Simon, 1.2.840.2 [id number] Univers 12:55:33 15:36:41 Visit Nilton A 13893.1.1 i ty of 3.104.2.7 [place] .3.265074 Medica l [address] [place] [address] 2020-07-08 2020-07-08 Outpatient R NILTON MONTES [facility] [id number] Univers 13:30:00 13:30:00 [facility] 2020-07-08 Orders Doctor 1.2.840.7 [id number] Univers 00:00:00 00:00:00 Only Unassigned, 77877.1.1 ity of [place] 3.104.2.7 [place] .3.520985 Medica l [address] [place] [address] 2020-07-08 2020-07-08 Letter Montes, 1.2.840.4 [id number] Univers 00:00:00 00:00:00 (Out) Nilton A 70159.1.1 i ty of 3.104.2.7 [place] .3.702826 Medica [facility] .8 [place] 2020-05-21 2020-05-21 Outpatient R NICOLE [facility] [id number] Univers 10:15:00 10:15:00 DENA ity [facility] 2020-05-21 2020-05-21 Orders Doctor 1.2.840.2 [id number] Univers 00:00:00 00:00:00 Only Unassigned, 42971.1.1 ity of [place] 3.104.2.7 [place] .3.571508 Medica [facility] .8 [place] 2020-04-24 2020-04-24 Outpatient R FISH, ASH [facility] [id number] Univers 16:00:00 16:00:00 ity of [facility] 2020-04-22 2020-04-22 Telephone Fish, Ash 1.2.840.1 [id number] Univers 00:00:00 00:00:00 77148.1.1 ity of 3.104.2.7 [place] .3.331646 Med[facility] .8 [place] 2020-04-21 2020-04-21 Case Fish, Ash 1.2.840.6 [id number] Univers 00:00:00 00:00:00 Management 29204.1.1 i ty of 3.104.2.7 [place] .3.768273 Medica l .8 [place] 2020-04-20 2020-04-20 Office Fish, Ash 1.2.840.5 [id number] Univers 15:09:50 16:30:58 Visit 01947.1.1 ity of 3.104.2.7 [place] .3.072344 Medica l .8 [place] 2020-04-20 2020-04-20 Outpatient R FISHASH [facility] [id number] Univers 15:30:00 15:30:00 ity of [facility] 2020-04-20 2020-04-20 Travel 1.2.840.1 1.2.579.850 [id number] [id number] Univers 00:00:00 00:00:00 87030.1.1 350.1.13.10 ity of 3.104.2.7 4.[place].7.3.698 [place] .3.789115 084.8 [place] .8 [place] 2020-04-16 2020-04-16 Emergency Checo, K 1.2.840.4 [id number] Univers 11:02:00 13:56:00 Bree 35259.1.1 ity of 3.104.2.7 [place] .3.054421 Medica l .8 [place] 2020-04-16 2020-04-16 Travel 1.2.840.1 1.2.426.172 [id number] [id number] Univers 00:00:00 00:00:00 55921.1.1 350.1.13.10 ity of 3.104.2.7 4.[place].7.3.698 [place] .3.214735 084.8 Med[place] l .8 [place] 2020-04-07 2020-04-07 Outpatient R CHELSY ROMO [facility] [id number] Univers 13:30:00 13:30:00 ity of [facility] 2020-04-07 2020-04-07 Travel 1.2.840.1 1.2.264.601 [id number] Univers 00:00:00 00:00:00 66199.1.1 350.1.13.10 ity of 3.104.2.7 4.[place].7.3.698 [place] .3.906117 084.8 Med[place] l .8 [place] 2020-01-30 2020-01-30 Outpatient R MAHENDRA [facility] [id number] Univers 15:45:00 15:45:00 TRUNG ity of [facility] 2020-01-30 2020-01-30 Travel 1.2.840.1 1.2.016.927 [id number] Univers 00:00:00 00:00:00 11466.1.1 350.1.13.10 ity of 3.104.2.7 4.[place]7.3.698 [place] .3.525134 084.8 [place] l .8 [place] 2020-01-01 2020-01-01 Orders Doctor 1.2.840.2 [id number] Univers 00:00:00 00:00:00 Only Unassigned, 35591.1.1 ity of [place] 3.104.2.7 [place] .3.644850 Medica l .8 [place] 2019-10-22 2019-10-22 Outpatient R CHELSY ROMO [facility] [id number] Univers 15:45:00 15:45:00 ity of [facility] 2019-09-12 2019-09-12 Urgent Unknown, Attending 1.2.840.1 [id number] Univers 17:51:35 19:25:20 Care Ruchi Matt 63760.1.1 ity of 3.104.2.7 [place] .3.245168 Medica l .8 [place] 2019-09-12 2019-09-12 Outpatient R UNKNOWN, [facility] [id number] Univers 18:00:00 18:00:00 ATTENDING ity of [facility] 2019-07-04 2019-07-04 Orders Doctor 1.2.840.5 [id number] Univers 00:00:00 00:00:00 Only Unassigned, 64837.1.1 ity of [place] 3.104.2.7 [place] .3.722756 Medica l .8 [place] 2019-04-02 2019-04-02 Orders Doctor 1.2.840.1 [id number] Univers 00:00:00 00:00:00 Only Unassigned, 17847.1.1 ity of [place] 3.104.2.7 [place] .3.540130 Medica l .8 [place] 2018-10-31 2018-10-31 Nurse Nilton Montes 1.2.840.1 [id number] Univers 14:59:26 16:42:50 Visit NurseHan 89911.1.1 ity of 3.104.2.7 [place] .3.726498 Medica l .8 [place] Results Test Description Test Time Test Comments Results Result Comments Source POCT TEST 2022-04-11 01:46:00 Test Item Value Reference Range Interpretation Comme nts POCT PREG (test code = 1605) Negative On board controls acceptable with C Line (test code = 3574) Present POCT PREG LOT # (test code = 3575) HCG 20110903 POCT PREG TEST DATE (test code = 3576) 07/02/2023 Lab Interpretation (test code = 89946-0) [id number] 01:46:00 Test Item Value Reference Range Interpretation Comments POCT PREG (test code = 1605) Negative On board controls acceptable with Present C Line (test code = 3574) POCT PREG LOT # (test code = HCG 20110903) POCT PREG TEST DATE (test 07/02/2023 code = 3576) Lab Interpretation (test code = Normal 15226-2) [facility] [id number] 01:46:00 Test Item Value Reference Range Interpretation Comments POCT PREG (test code = 1605) Negative On board controls acceptable with Present C Line (test code = 3574) POCT PREG LOT # (test code = HCG 20110903) POCT PREG TEST DATE (test 07/02/2023 code = 3576) Lab Interpretation (test code = Normal 04806-7) [facility] [id number] 01:46:00 Test Item Value Reference Range Interpretation Comments POCT PREG (test code = 1605) Negative On board controls acceptable with Present C Line (test code = 3574) POCT PREG LOT # (test code = HCG 20110903) POCT PREG TEST DATE (test 07/02/2023 code = 3576) Lab Interpretation (test code = Normal 60467-8) [facility] [id number] 01:46:00 Test Item Value Reference Range Interpretation Comments POCT PREG (test code = 1605) Negative On board controls acceptable with Present C Line (test code = 3574) POCT PREG LOT # (test code = HCG 20110903) POCT PREG TEST DATE (test 07/02/2023 code = 3576) Lab Interpretation (test code = Normal 13337-1) [facility] [id number] 01:46:00 Test Item Value Reference Range Interpretation Comments POCT PREG (test code = 1605) Negative On board controls acceptable with Present C Line (test code = 3574) POCT PREG LOT # (test code = HCG 20110903) POCT PREG TEST DATE (test 07/02/2023 code = 3576) Lab Interpretation (test code = Normal 48483-4) [facility] [id number] 01:46:00 Test Item Value Reference Range Interpretation Comments POCT PREG (test code = 1605) Negative On board controls acceptable with Present C Line (test code = 3574) POCT PREG LOT # (test code = HCG 20110903) POCT PREG TEST DATE (test 07/02/2023 code = 3576) Lab Interpretation (test code = Normal 44836-0) [facility] [id number] 01:46:00 Test Item Value Reference Range Interpretation Comments POCT PREG (test code = 1605) Negative On board controls acceptable with Present C Line (test code = 3574) POCT PREG LOT # (test code = HCG 20110903) POCT PREG TEST DATE (test 07/02/2023 code = 3576) Lab Interpretation (test code = Normal 64764-4) [facility] [id number] 01:46:00 Test Item Value Reference Range Interpretation Comments POCT PREG (test code = 1605) Negative On board controls acceptable with Present C Line (test code = 3574) POCT PREG LOT # (test code = HCG 20110903) POCT PREG TEST DATE (test 07/02/2023 code = 3576) Lab Interpretation (test code = Normal 00787-2) [facility] [id number] 01:46:00 Test Item Value Reference Range Interpretation Comments POCT PREG (test code = 1605) Negative On board controls acceptable with Present C Line (test code = 3574) POCT PREG LOT # (test code = HCG 20110903) POCT PREG TEST DATE (test 07/02/2023 code = 3576) Lab Interpretation (test code = Normal 46567-1) [facility] [id number] 01:46:00 Test Item Value Reference Range Interpretation Comments POCT PREG (test code = 1605) Negative On board controls acceptable with Present C Line (test code = 3574) POCT PREG LOT # (test code = HCG 20110903) POCT PREG TEST DATE (test 07/02/2023 code = 3576) Lab Interpretation (test code = Normal 53000-8) [facility] [id number] 01:46:00 Test Item Value Reference Range Interpretation Comments POCT PREG (test code = 1605) Negative On board controls acceptable with Present C Line (test code = 3574) POCT PREG LOT # (test code = HCG 1100395 3575) POCT PREG TEST DATE (test 07/02/2023 code = 3576) Lab Interpretation (test code = Normal 78683-4) [facility] [id number] 01:46:00 Test Item Value Reference Range Interpretation Comments POCT PREG (test code = 1605) Negative On board controls acceptable with Present C Line (test code = 3574) POCT PREG LOT # (test code = HCG 20110903) POCT PREG TEST DATE (test 07/02/2023 code = 3576) Lab Interpretation (test code = Normal 47829-6) [facility] [id number] 01:46:00 Test Item Value Reference Range Interpretation Comments POCT PREG (test code = 1605) Negative On board controls acceptable with Present C Line (test code = 3574) POCT PREG LOT # (test code = HCG 20110903) POCT PREG TEST DATE (test 07/02/2023 code = 3576) Lab Interpretation (test code = Normal 55435-3) [facility] [id number] 01:46:00 Test Item Value Reference Range Interpretation Comments POCT PREG (test code = 1605) Negative On board controls acceptable with Present C Line (test code = 3574) POCT PREG LOT # (test code = HCG 20110903) POCT PREG TEST DATE (test 07/02/2023 code = 3576) Lab Interpretation (test code = Normal 54112-7) [facility] [id number] 01:46:00 Test Item Value Reference Range Interpretation Comments POCT PREG (test code = 1605) Negative On board controls acceptable with Present C Line (test code = 3574) POCT PREG LOT # (test code = HCG 20110903) POCT PREG TEST DATE (test 07/02/2023 code = 3576) Lab Interpretation (test code = Normal 71943-8) [facility] [id number] 01:46:00 Test Item Value Reference Range Interpretation Comments POCT PREG (test code = 1605) Negative On board controls acceptable with Present C Line (test code = 3574) POCT PREG LOT # (test code = HCG 20110903) POCT PREG TEST DATE (test 07/02/2023 code = 3576) Lab Interpretation (test code = Normal 22896-1) [facility] [id number] 01:46:00 Test Item Value Reference Range Interpretation Comments POCT PREG (test code = 1605) Negative On board controls acceptable with Present C Line (test code = 3574) POCT PREG LOT # (test code = HCG 20110903) POCT PREG TEST DATE (test 07/02/2023 code = 3576) Lab Interpretation (test code = Normal 77171-3) [facility] [id number] 01:46:00 Test Item Value Reference Range Interpretation Comments POCT PREG (test code = 1605) Negative On board controls acceptable with Present C Line (test code = 3574) POCT PREG LOT # (test code = HCG [id number] 3575) POCT PREG TEST DATE (test 07/02/2023 code = 3576) Lab Interpretation (test code = Normal 61401-9) [facility] METABOLIC PANEL (NA, K, CL, CO2, GLUCOSE, BUN, CREATININE, CA)2022-04-05 11:08:28 Test Item Value Reference Range Interpretation Comments NA (test code = 137 mmol/L 135-145 9367232047) K (test code = 3.8 mmol/L 3.5-5 9620281530) CL (test code = 104 mmol/L 98-108 6066345533) CO2 TOTAL (test code 27 mmol/L 23-31 = 6602542657) AGAP (test code = 2-16 6049818643) BUN (test code = 13 mg/dL 7-23 8894963017) GLUCOSE (test code = 106 mg/dL 70-110 5967081881) CREATININE (test code 0.58 mg/dL 0.5-1.04 = 7322053999) CALCIUM (test code = 8.6 mg/dL 8.6-10.6 5299036226) eGFR (test code = mL/min/1.73m2 0245647743) MEDHAT (test code = MEDHAT) Association of Glomerular Filtration Rate (GFR) and Staging of Kidney Disease* + + +- +| GFR (mL/min/1.73 m2) ?| With Kidney Damage ?| ?Without Kidney Damage+ ------+ ----+ ------+| ?>90 ?| ?Stage one ?| ? Normal ?+ -+ + -+| ?60-89 ?| ?Stage two ?| ? Decreased GFR ? + + +- +| ?30-59 ?| ?Stage three ?| ? Stage three ? + + +- +| ?15-29 ?| ?Stage four ? | ? Stage four ?+ -+ + -+| ?<15 (or dialysis) ? ?| ?Stage five ? | ? Stage five ?+ -+ + -+ *Each stage assumes the associated GFR level [...] or urine or abnormalities in imaging tests). [facility] METABOLIC PANEL (NA, K, CL, CO2, GLUCOSE, BUN, CREATININE, CA)2022-04-05 11:08:28 Test Item Value Reference Range Interpretation Comments NA (test code = 137 mmol/L 135-145 7652670203) K (test code = 3.8 mmol/L 3.5-5 5844422431) CL (test code = 104 mmol/L 98-108 6153389288) CO2 TOTAL (test code 27 mmol/L 23-31 = 9580543758) AGAP (test code = 2-16 0896992969) BUN (test code = 13 mg/dL 7-23 1726777627) GLUCOSE (test code = 106 mg/dL 70-110 4953538971) CREATININE (test code 0.58 mg/dL 0.5-1.04 = 5984802826) CALCIUM (test code = 8.6 mg/dL 8.6-10.6 4537301303) eGFR (test code = mL/min/1.73m2 2018803562) MEDHAT (test code = MEDHAT) Association of Glomerular Filtration Rate (GFR) and Staging of Kidney Disease* + + +- +| GFR (mL/min/1.73 m2) ?| With Kidney Damage ?| ?Without Kidney Damage+ ------+ ----+ ------+| ?>90 ?| ?Stage one ?| ? Normal ?+ -+ + -+| ?60-89 ?| ?Stage two ?| ? Decreased GFR ? + + +- +| ?30-59 ?| ?Stage three ?| ? Stage three ? + + +- +| ?15-29 ?| ?Stage four ? | ? Stage four ?+ -+ + -+| ?<15 (or dialysis) ? ?| ?Stage five ? | ? Stage five ?+ -+ + -+ *Each stage assumes the associated GFR level [...] or urine or abnormalities in imaging tests). [facility]OL[facility] (NA, K, CL, CO2, GLUCOSE, BUN, CREATININE, CA)2022-04-05 11:08:28 Test Item Value Reference Range Interpretation Comments NA (test code = 137 mmol/L 135-145 5574043021) K (test code = 3.8 mmol/L 3.5-5 0097310901) CL (test code = 104 mmol/L 98-108 9723419204) CO2 TOTAL (test code 27 mmol/L 23-31 = 4075725508) AGAP (test code = 2-16 3130350064) BUN (test code = 13 mg/dL 7-23 8855517365) GLUCOSE (test code = 106 mg/dL 70-110 7592554129) CREATININE (test code 0.58 mg/dL 0.5-1.04 = 8910336537) CALCIUM (test code = 8.6 mg/dL 8.6-10.6 9001719148) eGFR (test code = mL/min/1.73m2 1429338279) MEDHAT (test code = MEDHAT) Association of Glomerular Filtration Rate (GFR) and Staging of Kidney Disease* + + +- +| GFR (mL/min/1.73 m2) ?| With Kidney Damage ?| ?Without Kidney Damage+ ------+ ----+ ------+| ?>90 ?| ?Stage one ?| ? Normal ?+ -+ + -+| ?60-89 ?| ?Stage two ?| ? Decreased GFR ? + + +- +| ?30-59 ?| ?Stage three ?| ? Stage three ? + + +- +| ?15-29 ?| ?Stage four ? | ? Stage four ?+ -+ + -+| ?<15 (or dialysis) ? ?| ?Stage five ? | ? Stage five ?+ -+ + -+ *Each stage assumes the associated GFR level [...] or urine or abnormalities in imaging tests). [facility] METABOLIC [facility] (NA, K, CL, CO2, GLUCOSE, BUN, CREATININE, CA)2022-04-05 11:08:28 Test Item Value Reference Range Interpretation Comments NA (test code = 137 mmol/L 135-145 1339656216) K (test code = 3.8 mmol/L 3.5-5 9970122560) CL (test code = 104 mmol/L 98-108 5579222618) CO2 TOTAL (test code 27 mmol/L 23-31 = 0075138649) AGAP (test code = 2-16 7425619595) BUN (test code = 13 mg/dL 7-23 6072178137) GLUCOSE (test code = 106 mg/dL 70-110 6738848453) CREATININE (test code 0.58 mg/dL 0.5-1.04 = 1154488523) CALCIUM (test code = 8.6 mg/dL 8.6-10.6 6753118803) eGFR (test code = mL/min/1.73m2 5879126080) MEDHAT (test code = MEDHAT) Association of Glomerular Filtration Rate (GFR) and Staging of Kidney Disease* + + +- +| GFR (mL/min/1.73 m2) ?| With Kidney Damage ?| ?Without Kidney Damage+ ------+ ----+ ------+| ?>90 ?| ?Stage one ?| ? Normal ?+ -+ + -+| ?60-89 ?| ?Stage two ?| ? Decreased GFR ? + + +- +| ?30-59 ?| ?Stage three ?| ? Stage three ? + + +- +| ?15-29 ?| ?Stage four ? | ? Stage four ?+ -+ + -+| ?<15 (or dialysis) ? ?| ?Stage five ? | ? Stage five ?+ -+ + -+ *Each stage assumes the associated GFR level [...] or urine or abnormalities in imaging tests). [facility] (NA, K, CL, CO2, GLUCOSE, BUN, CREATININE, CA)2022-04-05 11:08:28 Test Item Value Reference Range Interpretation Comments NA (test code = 137 mmol/L 135-145 [id number]) K (test code = 3.8 mmol/L 3.5-5 7249733320) CL (test code = 104 mmol/L 98-108 0172930882) CO2 TOTAL (test code 27 mmol/L 23-31 = 9106687591) AGAP (test code = 2-16 8406544835) BUN (test code = 13 mg/dL 7-23 2572897880) GLUCOSE (test code = 106 mg/dL 70-110 6328818131) CREATININE (test code 0.58 mg/dL 0.5-1.04 = 7047065859) CALCIUM (test code = 8.6 mg/dL 8.6-10.6 5759425103) eGFR (test code = mL/min/1.73m2 0944286991) MEDHAT (test code = MEDHAT) Association of Glomerular Filtration Rate (GFR) and Staging of Kidney Disease* + + +- +| GFR (mL/min/1.73 m2) ?| With Kidney Damage ?| ?Without Kidney Damage+ ------+ ----+ ------+| ?>90 ?| ?Stage one ?| ? Normal ?+ -+ + -+| ?60-89 ?| ?Stage two ?| ? Decreased GFR ? + + +- +| ?30-59 ?| ?Stage three ?| ? Stage three ? + + +- +| ?15-29 ?| ?Stage four ? | ? Stage four ?+ -+ + -+| ?<15 (or dialysis) ? ?| ?Stage five ? | ? Stage five ?+ -+ + -+ *Each stage assumes the associated GFR level [...] or urine or abnormalities in imaging tests). [facility] METABOLIC PANEL (NA, K, CL, CO2, GLUCOSE, BUN, CREATININE, CA)2022-04-05 11:08:28 Test Item Value Reference Range Interpretation Comments NA (test code = 137 mmol/L 135-145 0131367591) K (test code = 3.8 mmol/L 3.5-5 0133535346) CL (test code = 104 mmol/L 98-108 0390038630) CO2 TOTAL (test code 27 mmol/L 23-31 = 2879623814) AGAP (test code = 2-16 4681324555) BUN (test code = 13 mg/dL 7-23 6929237559) GLUCOSE (test code = 106 mg/dL 70-110 6424750219) CREATININE (test code 0.58 mg/dL 0.5-1.04 = 6707530948) CALCIUM (test code = 8.6 mg/dL 8.6-10.6 0787313121) eGFR (test code = mL/min/1.73m2 8784939645) MEDHAT (test code = MEDHAT) Association of Glomerular Filtration Rate (GFR) and Staging of Kidney Disease* + + +- +| GFR (mL/min/1.73 m2) ?| With Kidney Damage ?| ?Without Kidney Damage+ ------+ ----+ ------+| ?>90 ?| ?Stage one ?| ? Normal ?+ -+ + -+| ?60-89 ?| ?Stage two ?| ? Decreased GFR ? + + +- +| ?30-59 ?| ?Stage three ?| ? Stage three ? + + +- +| ?15-29 ?| ?Stage four ? | ? Stage four ?+ -+ + -+| ?<15 (or dialysis) ? ?| ?Stage five ? | ? Stage five ?+ -+ + -+ *Each stage assumes the associated GFR level [...] or urine or abnormalities in imaging tests). [facility] (NA, K, CL, CO2, GLUCOSE, BUN, CREATININE, CA)2022-04-05 11:08:28 Test Item Value Reference Range Interpretation Comments NA (test code = 137 mmol/L 135-145 0818714135) K (test code = 3.8 mmol/L 3.5-5 5645375881) CL (test code = 104 mmol/L 98-108 6689346756) CO2 TOTAL (test code 27 mmol/L 23-31 = 0235351922) AGAP (test code = 2-16 3987993803) BUN (test code = 13 mg/dL 7-23 7483729873) GLUCOSE (test code = 106 mg/dL 70-110 1792122583) CREATININE (test code 0.58 mg/dL 0.5-1.04 = 6909226276) CALCIUM (test code = 8.6 mg/dL 8.6-10.6 2807692365) eGFR (test code = mL/min/1.73m2 4957719536) MEDHAT (test code = MEDHAT) Association of Glomerular Filtration Rate (GFR) and Staging of Kidney Disease* + + +- +| GFR (mL/min/1.73 m2) ?| With Kidney Damage ?| ?Without Kidney Damage+ ------+ ----+ ------+| ?>90 ?| ?Stage one ?| ? Normal ?+ -+ + -+| ?60-89 ?| ?Stage two ?| ? Decreased GFR ? + + +- +| ?30-59 ?| ?Stage three ?| ? Stage three ? + + +- +| ?15-29 ?| ?Stage four ? | ? Stage four ?+ -+ + -+| ?<15 (or dialysis) ? ?| ?Stage five ? | ? Stage five ?+ -+ + -+ *Each stage assumes the associated GFR level [...] or urine or abnormalities in imaging tests). [facility] METABOLIC PANEL (NA, K, CL, CO2, GLUCOSE, BUN, CREATININE, CA)2022-04-05 11:08:28 Test Item Value Reference Range Interpretation Comments NA (test code = 137 mmol/L 135-145 4326039508) K (test code = 3.8 mmol/L 3.5-5 5307428259) CL (test code = 104 mmol/L 98-108 0114758944) CO2 TOTAL (test code 27 mmol/L 23-31 = 5481467034) AGAP (test code = 2-16 5196506253) BUN (test code = 13 mg/dL 7-23 6135695969) GLUCOSE (test code = 106 mg/dL 70-110 1126373603) CREATININE (test code 0.58 mg/dL 0.5-1.04 = 4413949795) CALCIUM (test code = 8.6 mg/dL 8.6-10.6 2302435711) eGFR (test code = mL/min/1.73m2 6805398955) MEDHAT (test code = MEDHAT) Association of Glomerular Filtration Rate (GFR) and Staging of Kidney Disease* + + +- +| GFR (mL/min/1.73 m2) ?| With Kidney Damage ?| ?Without Kidney Damage+ ------+ ----+ ------+| ?>90 ?| ?Stage one ?| ? Normal ?+ -+ + -+| ?60-89 ?| ?Stage two ?| ? Decreased GFR ? + + +- +| ?30-59 ?| ?Stage three ?| ? Stage three ? + + +- +| ?15-29 ?| ?Stage four ? | ? Stage four ?+ -+ + -+| ?<15 (or dialysis) ? ?| ?Stage five ? | ? Stage five ?+ -+ + -+ *Each stage assumes the associated GFR level [...] or urine or abnormalities in imaging tests). [facility] METABOLIC PANEL (NA, K, CL, CO2, GLUCOSE, BUN, CREATININE, CA)2022-04-05 11:08:28 Test Item Value Reference Range Interpretation Comments NA (test code = 137 mmol/L 135-145 6324789636) K (test code = 3.8 mmol/L 3.5-5 4071591578) CL (test code = 104 mmol/L 98-108 6996650735) CO2 TOTAL (test code 27 mmol/L 23-31 = 9233827186) AGAP (test code = 2-16 9708367095) BUN (test code = 13 mg/dL 7-23 1353667405) GLUCOSE (test code = 106 mg/dL 70-110 0357708385) CREATININE (test code 0.58 mg/dL 0.5-1.04 = 8148737468) CALCIUM (test code = 8.6 mg/dL 8.6-10.6 4175527090) eGFR (test code = mL/min/1.73m2 8626009830) MEDHAT (test code = MEDHAT) Association of Glomerular Filtration Rate (GFR) and Staging of Kidney Disease* + + +- +| GFR (mL/min/1.73 m2) ?| With Kidney Damage ?| ?Without Kidney Damage+ ------+ ----+ ------+| ?>90 ?| ?Stage one ?| ? Normal ?+ -+ + -+| ?60-89 ?| ?Stage two ?| ? Decreased GFR ? + + +- +| ?30-59 ?| ?Stage three ?| ? Stage three ? + + +- +| ?15-29 ?| ?Stage four ? | ? Stage four ?+ -+ + -+| ?<15 (or dialysis) ? ?| ?Stage five ? | ? Stage five ?+ -+ + -+ *Each stage assumes the associated GFR level [...] or urine or abnormalities in imaging tests). [facility] METABOLIC PANEL (NA, K, CL, CO2, GLUCOSE, BUN, CREATININE, CA)2022-04-05 11:08:28 Test Item Value Reference Range Interpretation Comments NA (test code = 137 mmol/L 135-145 8833862851) K (test code = 3.8 mmol/L 3.5-5 7884779886) CL (test code = 104 mmol/L 98-108 4316587856) CO2 TOTAL (test code 27 mmol/L 23-31 = 8062622035) AGAP (test code = 2-16 3832478208) BUN (test code = 13 mg/dL 7-23 2259247982) GLUCOSE (test code = 106 mg/dL 70-110 2661323798) CREATININE (test code 0.58 mg/dL 0.5-1.04 = 2086396456) CALCIUM (test code = 8.6 mg/dL 8.6-10.6 3655847385) eGFR (test code = mL/min/1.73m2 9284870977) MEDHAT (test code = MEDHAT) Association of Glomerular Filtration Rate (GFR) and Staging of Kidney Disease* + + +- +| GFR (mL/min/1.73 m2) ?| With Kidney Damage ?| ?Without Kidney Damage+ ------+ ----+ ------+| ?>90 ?| ?Stage one ?| ? Normal ?+ -+ + -+| ?60-89 ?| ?Stage two ?| ? Decreased GFR ? + + +- +| ?30-59 ?| ?Stage three ?| ? Stage three ? + + +- +| ?15-29 ?| ?Stage four ? | ? Stage four ?+ -+ + -+| ?<15 (or dialysis) ? ?| ?Stage five ? | ? Stage five ?+ -+ + -+ *Each stage assumes the associated GFR level [...] or urine or abnormalities in imaging tests). [facility] METABOLIC PANEL (NA, K, CL, CO2, GLUCOSE, BUN, CREATININE, CA)2022-04-05 11:08:28 Test Item Value Reference Range Interpretation Comments NA (test code = 137 mmol/L 135-145 1043983390) K (test code = 3.8 mmol/L 3.5-5 5127977368) CL (test code = 104 mmol/L 98-108 2908776420) CO2 TOTAL (test code 27 mmol/L 23-31 = 5764140303) AGAP (test code = 2-16 2533480620) BUN (test code = 13 mg/dL 7-23 4897197834) GLUCOSE (test code = 106 mg/dL 70-110 6920793024) CREATININE (test code 0.58 mg/dL 0.5-1.04 = 4106042676) CALCIUM (test code = 8.6 mg/dL 8.6-10.6 7077809787) eGFR (test code = mL/min/1.73m2 3839885645) MEDHAT (test code = MEDHAT) Association of Glomerular Filtration Rate (GFR) and Staging of Kidney Disease* + + +- +| GFR (mL/min/1.73 m2) ?| With Kidney Damage ?| ?Without Kidney Damage+ ------+ ----+ ------+| ?>90 ?| ?Stage one ?| ? Normal ?+ -+ + -+| ?60-89 ?| ?Stage two ?| ? Decreased GFR ? + + +- +| ?30-59 ?| ?Stage three ?| ? Stage three ? + + +- +| ?15-29 ?| ?Stage four ? | ? Stage four ?+ -+ + -+| ?<15 (or dialysis) ? ?| ?Stage five ? | ? Stage five ?+ -+ + -+ *Each stage assumes the associated GFR level [...] or urine or abnormalities in imaging tests). [facility] METABOLIC PANEL (NA, K, CL, CO2, GLUCOSE, BUN, CREATININE, CA)2022-04-05 11:08:28 Test Item Value Reference Range Interpretation Comments NA (test code = 137 mmol/L 135-145 6665149451) K (test code = 3.8 mmol/L 3.5-5 1041364812) CL (test code = 104 mmol/L 98-108 9022953891) CO2 TOTAL (test code 27 mmol/L 23-31 = 9045481288) AGAP (test code = 2-16 5505228679) BUN (test code = 13 mg/dL 7-23 6673611513) GLUCOSE (test code = 106 mg/dL 70-110 8271922118) CREATININE (test code 0.58 mg/dL 0.5-1.04 = 0742390862) CALCIUM (test code = 8.6 mg/dL 8.6-10.6 0547318393) eGFR (test code = mL/min/1.73m2 1637419219) MEDHAT (test code = MEDHAT) Association of Glomerular Filtration Rate (GFR) and Staging of Kidney Disease* + + +- +| GFR (mL/min/1.73 m2) ?| With Kidney Damage ?| ?Without Kidney Damage+ ------+ ----+ ------+| ?>90 ?| ?Stage one ?| ? Normal ?+ -+ + -+| ?60-89 ?| ?Stage two ?| ? Decreased GFR ? + + +- +| ?30-59 ?| ?Stage three ?| ? Stage three ? + + +- +| ?15-29 ?| ?Stage four ? | ? Stage four ?+ -+ + -+| ?<15 (or dialysis) ? ?| ?Stage five ? | ? Stage five ?+ -+ + -+ *Each stage assumes the associated GFR level [...] or urine or abnormalities in imaging tests). [facility] METABOLIC PANEL (NA, K, CL, CO2, GLUCOSE, BUN, CREATININE, CA)2022-04-05 11:08:28 Test Item Value Reference Range Interpretation Comments NA (test code = 137 mmol/L 135-145 0475936061) K (test code = 3.8 mmol/L 3.5-5 3026445366) CL (test code = 104 mmol/L 98-108 6997283219) CO2 TOTAL (test code 27 mmol/L 23-31 = 3425579791) AGAP (test code = 2-16 2565364082) BUN (test code = 13 mg/dL 7-23 0960144865) GLUCOSE (test code = 106 mg/dL 70-110 5110942544) CREATININE (test code 0.58 mg/dL 0.5-1.04 = 4828776574) CALCIUM (test code = 8.6 mg/dL 8.6-10.6 6718011586) eGFR (test code = mL/min/1.73m2 2346739910) MEDHAT (test code = MEDHAT) Association of Glomerular Filtration Rate (GFR) and Staging of Kidney Disease* + + +- +| GFR (mL/min/1.73 m2) ?| With Kidney Damage ?| ?Without Kidney Damage+ ------+ ----+ ------+| ?>90 ?| ?Stage one ?| ? Normal ?+ -+ + -+| ?60-89 ?| ?Stage two ?| ? Decreased GFR ? + + +- +| ?30-59 ?| ?Stage three ?| ? Stage three ? + + +- +| ?15-29 ?| ?Stage four ? | ? Stage four ?+ -+ + -+| ?<15 (or dialysis) ? ?| ?Stage five ? | ? Stage five ?+ -+ + -+ *Each stage assumes the associated GFR level [...] or urine or abnormalities in imaging tests). [facility] METABOLIC PANEL (NA, K, CL, CO2, GLUCOSE, BUN, CREATININE, CA)2022-04-05 11:08:28 Test Item Value Reference Range Interpretation Comments NA (test code = 137 mmol/L 135-145 8300296838) K (test code = 3.8 mmol/L 3.5-5 5355346409) CL (test code = 104 mmol/L 98-108 8867771303) CO2 TOTAL (test code 27 mmol/L 23-31 = 5956032577) AGAP (test code = 2-16 6476381231) BUN (test code = 13 mg/dL 7-23 8400510582) GLUCOSE (test code = 106 mg/dL 70-110 7807119627) CREATININE (test code 0.58 mg/dL 0.5-1.04 = 1418571347) CALCIUM (test code = 8.6 mg/dL 8.6-10.6 3553417935) eGFR (test code = mL/min/1.73m2 8957939387) MEDHAT (test code = MEDHAT) Association of Glomerular Filtration Rate (GFR) and Staging of Kidney Disease* + + +- +| GFR (mL/min/1.73 m2) ?| With Kidney Damage ?| ?Without Kidney Damage+ ------+ ----+ ------+| ?>90 ?| ?Stage one ?| ? Normal ?+ -+ + -+| ?60-89 ?| ?Stage two ?| ? Decreased GFR ? + + +- +| ?30-59 ?| ?Stage three ?| ? Stage three ? + + +- +| ?15-29 ?| ?Stage four ? | ? Stage four ?+ -+ + -+| ?<15 (or dialysis) ? ?| ?Stage five ? | ? Stage five ?+ -+ + -+ *Each stage assumes the associated GFR level [...] or urine or abnormalities in imaging tests). [facility] METABOLIC PANEL (NA, K, CL, CO2, GLUCOSE, BUN, CREATININE, CA)2022-04-05 11:08:28 Test Item Value Reference Range Interpretation Comments NA (test code = 137 mmol/L 135-145 1299046012) K (test code = 3.8 mmol/L 3.5-5 8856089225) CL (test code = 104 mmol/L 98-108 5891529160) CO2 TOTAL (test code 27 mmol/L 23-31 = 2680377690) AGAP (test code = 2-16 6418994369) BUN (test code = 13 mg/dL 7-23 5166490170) GLUCOSE (test code = 106 mg/dL 70-110 5166768992) CREATININE (test code 0.58 mg/dL 0.5-1.04 = 2651806430) CALCIUM (test code = 8.6 mg/dL 8.6-10.6 3561565471) eGFR (test code = mL/min/1.73m2 9719699385) MEDHAT (test code = MEDHAT) Association of Glomerular Filtration Rate (GFR) and Staging of Kidney Disease* + + +- +| GFR (mL/min/1.73 m2) ?| With Kidney Damage ?| ?Without Kidney Damage+ ------+ ----+ ------+| ?>90 ?| ?Stage one ?| ? Normal ?+ -+ + -+| ?60-89 ?| ?Stage two ?| ? Decreased GFR ? + + +- +| ?30-59 ?| ?Stage three ?| ? Stage three ? + + +- +| ?15-29 ?| ?Stage four ? | ? Stage four ?+ -+ + -+| ?<15 (or dialysis) ? ?| ?Stage five ? | ? Stage five ?+ -+ + -+ *Each stage assumes the associated GFR level [...] or urine or abnormalities in imaging tests). [facility] METABOLIC PANEL (NA, K, CL, CO2, GLUCOSE, BUN, CREATININE, CA)2022-04-05 11:08:28 Test Item Value Reference Range Interpretation Comments NA (test code = 137 mmol/L 135-145 6697372437) K (test code = 3.8 mmol/L 3.5-5.0 7468162302) CL (test code = 104 mmol/L 98-108 7375459221) CO2 TOTAL (test code 27 mmol/L 23-31 = 0457244250) AGAP (test code = 2-16 7159222073) BUN (test code = 13 mg/dL 7-23 3740532833) GLUCOSE (test code = 106 mg/dL 70-110 3553841501) CREATININE (test code 0.58 mg/dL 0.50-1.04 = 1931227053) CALCIUM (test code = 8.6 mg/dL 8.6-10.6 0275409952) eGFR (test code = mL/min/1.73m2 4976855432) MEDHAT (test code = MEDHAT) Association of Glomerular Filtration Rate (GFR) and Staging of Kidney Disease* + + +- +| GFR (mL/min/1.73 m2) ?| With Kidney Damage ?| ?Without Kidney Damage+ ------+ ----+ ------+| ?>90 ?| ?Stage one ?| ? Normal ?+ -+ + -+| ?60-89 ?| ?Stage two ?| ? Decreased GFR ? + + +- +| ?30-59 ?| ?Stage three ?| ? Stage three ? + + +- +| ?15-29 ?| ?Stage four ? | ? Stage four ?+ -+ + -+| ?<15 (or dialysis) ? ?| ?Stage five ? | ? Stage five ?+ -+ + -+ *Each stage assumes the associated GFR level [...] or urine or abnormalities in imaging tests). [facility] METABOLIC PANEL (NA, K, CL, CO2, GLUCOSE, BUN, CREATININE, CA)2022-04-05 11:08:28 Test Item Value Reference Range Interpretation Comments NA (test code = 137 mmol/L 135-145 0682461994) K (test code = 3.8 mmol/L 3.5-5.0 2597107616) CL (test code = 104 mmol/L 98-108 1627789484) CO2 TOTAL (test code 27 mmol/L 23-31 = 4534574279) AGAP (test code = 2-16 3290896641) BUN (test code = 13 mg/dL 7-23 9469954154) GLUCOSE (test code = 106 mg/dL 70-110 6248165447) CREATININE (test code 0.58 mg/dL 0.50-1.04 = 5184828217) CALCIUM (test code = 8.6 mg/dL 8.6-10.6 1482009891) eGFR (test code = mL/min/1.73m2 5279374305) MEDHAT (test code = MEDHAT) Association of Glomerular Filtration Rate (GFR) and Staging of Kidney Disease* + + +- +| GFR (mL/min/1.73 m2) ?| With Kidney Damage ?| ?Without Kidney Damage+ ------+ ----+ ------+| ?>90 ?| ?Stage one ?| ? Normal ?+ -+ + -+| ?60-89 ?| ?Stage two ?| ? Decreased GFR ? + + +- +| ?30-59 ?| ?Stage three ?| ? Stage three ? + + +- +| ?15-29 ?| ?Stage four ? | ? Stage four ?+ -+ + -+| ?<15 (or dialysis) ? ?| ?Stage five ? | ? Stage five ?+ -+ + -+ *Each stage assumes the associated GFR level [...] or urine or abnormalities in imaging tests). [facility] METABOLIC PANEL (NA, K, CL, CO2, GLUCOSE, BUN, CREATININE, CA)2022-04-05 11:08:28 Test Item Value Reference Range Interpretation Comments NA (test code = 137 mmol/L 135-145 9274053337) K (test code = 3.8 mmol/L 3.5-5.0 0184197442) CL (test code = 104 mmol/L 98-108 1818518828) CO2 TOTAL (test code 27 mmol/L 23-31 = 8411186329) AGAP (test code = 2-16 7516091738) BUN (test code = 13 mg/dL 7-23 8145226027) GLUCOSE (test code = 106 mg/dL 70-110 2346512426) CREATININE (test code 0.58 mg/dL 0.50-1.04 = 6253611489) CALCIUM (test code = 8.6 mg/dL 8.6-10.6 9238427410) eGFR (test code = mL/min/1.73m2 3215872058) MEDHAT (test code = MEDHAT) Association of Glomerular Filtration Rate (GFR) and Staging of Kidney Disease* + + +- +| GFR (mL/min/1.73 m2) ?| With Kidney Damage ?| ?Without Kidney Damage+ ------+ ----+ ------+| ?>90 ?| ?Stage one ?| ? Normal ?+ -+ + -+| ?60-89 ?| ?Stage two ?| ? Decreased GFR ? + + +- +| ?30-59 ?| ?Stage three ?| ? Stage three ? + + +- +| ?15-29 ?| ?Stage four ? | ? Stage four ?+ -+ + -+| ?<15 (or dialysis) ? ?| ?Stage five ? | ? Stage five ?+ -+ + -+ *Each stage assumes the associated GFR level [...] or urine or abnormalities in imaging tests). [facility] METABOLIC PANEL (NA, K, CL, CO2, GLUCOSE, BUN, CREATININE, CA)2022-04-05 11:08:28 Test Item Value Reference Range Interpretation Comments NA (test code = 137 mmol/L 135-145 8810501448) K (test code = 3.8 mmol/L 3.5-5.0 5124829308) CL (test code = 104 mmol/L 98-108 4527550292) CO2 TOTAL (test code 27 mmol/L 23-31 = 1875643343) AGAP (test code = 2-16 0850312826) BUN (test code = 13 mg/dL 7-23 0477541653) GLUCOSE (test code = 106 mg/dL 70-110 2077799393) CREATININE (test code 0.58 mg/dL 0.50-1.04 = 4748334357) CALCIUM (test code = 8.6 mg/dL 8.6-10.6 3047948652) eGFR (test code = mL/min/1.73m2 2960856441) MEDHAT (test code = MEDHAT) Association of Glomerular Filtration Rate (GFR) and Staging of Kidney Disease* + + +- +| GFR (mL/min/1.73 m2) ?| With Kidney Damage ?| ?Without Kidney Damage+ ------+ ----+ ------+| ?>90 ?| ?Stage one ?| ? Normal ?+ -+ + -+| ?60-89 ?| ?Stage two ?| ? Decreased GFR ? + + +- +| ?30-59 ?| ?Stage three ?| ? Stage three ? + + +- +| ?15-29 ?| ?Stage four ? | ? Stage four ?+ -+ + -+| ?<15 (or dialysis) ? ?| ?Stage five ? | ? Stage five ?+ -+ + -+ *Each stage assumes the associated GFR level [...] or urine or abnormalities in imaging tests). [facility] METABOLIC PANEL (NA, K, CL, CO2, GLUCOSE, BUN, CREATININE, CA)2022-04-05 11:08:28 Test Item Value Reference Range Interpretation Comments NA (test code = 137 mmol/L 135-145 3568489153) K (test code = 3.8 mmol/L 3.5-5.0 2787213338) CL (test code = 104 mmol/L 98-108 3504674553) CO2 TOTAL (test code 27 mmol/L 23-31 = 4304713052) AGAP (test code = 2-16 7433058938) BUN (test code = 13 mg/dL 7-23 4003713139) GLUCOSE (test code = 106 mg/dL 70-110 7461945220) CREATININE (test code 0.58 mg/dL 0.50-1.04 = 4769430680) CALCIUM (test code = 8.6 mg/dL 8.6-10.6 6340965257) eGFR (test code = mL/min/1.73m2 6226094671) MEDHAT (test code = MEDHAT) Association of Glomerular Filtration Rate (GFR) and Staging of Kidney Disease* + + +- +| GFR (mL/min/1.73 m2) ?| With Kidney Damage ?| ?Without Kidney Damage+ ------+ ----+ ------+| ?>90 ?| ?Stage one ?| ? Normal ?+ -+ + -+| ?60-89 ?| ?Stage two ?| ? Decreased GFR ? + + +- +| ?30-59 ?| ?Stage three ?| ? Stage three ? + + +- +| ?15-29 ?| ?Stage four ? | ? Stage four ?+ -+ + -+| ?<15 (or dialysis) ? ?| ?Stage five ? | ? Stage five ?+ -+ + -+ *Each stage assumes the associated GFR level [...] or urine or abnormalities in imaging tests). [facility] with [id number] 10:50:28 Test Item Value Reference Range Interpretation Comments WBC (test code = See_Comment [Automated 6290-2) message] The sy stem which generated this [...] as normal/abnormal . HGB (test code = 11.6 g/dL 11.6-15 718-7) HCT (test code = 35.5 % 35.7-45.2 L 4544-3) MCV (test code = 86.8 fL 80.6-95.5 787-2) MCH (test code = 28.4 pg 25.9-32.8 785-6) MCHC (test code = 32.7 g/dL 31.6-35.1 786-4) RDW-SD (test code = 43.6 fL 39-49.9 03851-6) RDW-CV (test code = 13.6 % 12-15.5 788-0) PLT (test code = See_Comment [Automated 777-3) message] The sy stem which generated this result transmitted reference range : 166 - 358 10*3/ ?L. The reference r mann was not used to interpret this result as normal/abnormal . MPV (test code = 9.9 fL 9.5-12.9 57549-5) NRBC/100 WBC (test See_Comment [Automat ed code = 6557719939) message] The system which generated this result transmitted reference range : 0.0 - 10.0 /100 WBCs. The refer ence range was not u sed to interpret th is result as normal/abnormal . NRBC x10^3 (test code See_Comment [Auto mated = 5799999707) message] The s ystem which generated this result transmitted reference range : 10*3/?L. The reference range was not used to interpret this result as normal/abnormal . GRAN MAT (NEUT) % 65.5 % (test code = 770-8) IMM GRAN % (test code 0.30 % = 3305812346) LYMPH % (test code = 25.3 % 736-9) MONO % (test code = 8.4 % 5905-5) EOS % (test code = 0.0 % 713-8) BASO % (test code = 0.5 % 706-2) GRAN MAT x10^3(ANC) 6.56 10*3/uL 1.88-7.09 (test code = 4715188827) IMM GRAN x10^3 (test 0.03 10*3/uL 0-0.06 code = 4388624830) LYMPH x10^3 (test code 2.53 10*3/uL 1.32-3.29 = 731-0) MONO x10^3 (test code 0.84 10*3/uL 0.33-0.92 = 742-7) EOS x10^3 (test code = 0.03-0.39 L 711-2) BASO x10^3 (test code 0.05 10*3/uL 0.01-0.07 = 704-7) Lab Interpretation Abnormal (test code = 47036-5) [facility] with [id number] 10:50:28 Test Item Value Reference Range Interpretation Comments WBC (test code = See_Comment [Automated 2590-2) message] The sy stem which generated this result transmitted reference range : 4.30 - 11.10 10*3/?L. The reference range was not used to interpret this result as normal/abnormal . RBC (test code = See_Comment [Automated 509-8) message] The sy stem which generated this result transmitted reference range : 3.93 - 5.25 10*6/?L. The reference range was not used to interpret this result as normal/abnormal . HGB (test code = 11.6 g/dL 11.6-15 718-7) HCT (test code = 35.5 % 35.7-45.2 L 4544-3) MCV (test code = 86.8 fL 80.6-95.5 787-2) MCH (test code = 28.4 pg 25.9-32.8 785-6) MCHC (test code = 32.7 g/dL 31.6-35.1 786-4) RDW-SD (test code = 43.6 fL 39-49.9 80535-2) RDW-CV (test code = 13.6 % 12-15.5 788-0) PLT (test code = See_Comment [Automated 777-3) message] The sy stem which generated this result transmitted reference range : 166 - 358 10*3/ ?L. The reference r mann was not used to interpret this result as normal/abnormal . MPV (test code = 9.9 fL 9.5-12.9 97084-8) NRBC/100 WBC (test See_Comment [Automat ed code = 0670180700) message] The system which generated this result transmitted reference range : 0.0 - 10.0 /100 WBCs. The refer ence range was not u sed to interpret th is result as normal/abnormal . NRBC x10^3 (test code See_Comment [Auto mated = [id number]) message] The s ystem which generated this result transmitted reference range : 10*3/?L. The reference range was not used to interpret this result as normal/abnormal . GRAN MAT (NEUT) % 65.5 % (test code = 770-8) IMM GRAN % (test code 0.30 % = [id number]) LYMPH % (test code = 25.3 % 736-9) MONO % (test code = 8.4 % 5905-5) EOS % (test code = 0.0 % 713-8) BASO % (test code = 0.5 % 706-2) GRAN MAT x10^3(ANC) 6.56 10*3/uL 1.88-7.09 (test code = [id number]) IMM GRAN x10^3 (test 0.03 10*3/uL 0-0.06 code = [id number]) LYMPH x10^3 (test code 2.53 10*3/uL 1.32-3.29 = 731-0) MONO x10^3 (test code 0.84 10*3/uL 0.33-0.92 = 742-7) EOS x10^3 (test code = 0.03-0.39 L 711-2) BASO x10^3 (test code 0.05 10*3/uL 0.01-0.07 = 704-7) Lab Interpretation Abnormal (test code = 86762-8) [facility] [id number] 01:03:38 Test Item Value Reference Interpretation Comments Range TROPONIN I (test 0.001 ng/mL See_Comment [Automated code = [id number]) message] The system which generated this result transmitted reference range : <=0.034. The reference range was not used to interpret this result as normal/abnormal . MEDHAT (test code = Reference (Normal) MEDHAT) Range (defined by the 99th percentile reference limit): <= 0.034 ng/mL Note: Cardiac troponin begins to rise 3-4 hours after the onset of ischemia. Repeat in 4-6 hours if the sample was drawn within 3-4 hours of the onset of the symptom and found normal. Diagnosis of myocardial injury is made with acute changes in cTn concentrations with at least one serial sample above the 99th percentile upper reference limit (URL), taken together with the patient's clinical presentation. Biotin has been reported to cause a negative bias, interpret results relative to patient's use of biotin. Lab Interpretation Normal (test code = 54722-8) [facility] [id number] 01:03:38 Test Item Value Reference Interpretation Comments Range TROPONIN I (test 0.001 ng/mL See_Comment [Automated code = [id number]) message] The system which generated this result transmitted reference range : <=0.034. The reference range was not used to interpret this result as normal/abnormal . MEDHAT (test code = Reference (Normal) MEDHAT) Range (defined by the 99th percentile reference limit): <= 0.034 ng/mL Note: Cardiac troponin begins to rise 3-4 hours after the onset of ischemia. Repeat in 4-6 hours if the sample was drawn within 3-4 hours of the onset of the symptom and found normal. Diagnosis of myocardial injury is made with acute changes in cTn concentrations with at least one serial sample above the 99th percentile upper reference limit (URL), taken together with the patient's clinical presentation. Biotin has been reported to cause a negative bias, interpret results relative to patient's use of biotin. Lab Interpretation Normal (test code = 23693-4) [facility] [id number] 01:03:38 Test Item Value Reference Interpretation Comments Range TROPONIN I (test 0.001 ng/mL See_Comment [Automated code = [id number]) message] The system which generated this result transmitted reference range : <=0.034. The reference range was not used to interpret this result as normal/abnormal . MEDHAT (test code = Reference (Normal) MEDHAT) Range (defined by the 99th percentile reference limit): <= 0.034 ng/mL Note: Cardiac troponin begins to rise 3-4 hours after the onset of ischemia. Repeat in 4-6 hours if the sample was drawn within 3-4 hours of the onset of the symptom and found normal. Diagnosis of myocardial injury is made with acute changes in cTn concentrations with at least one serial sample above the 99th percentile upper reference limit (URL), taken together with the patient's clinical presentation. Biotin has been reported to cause a negative bias, interpret results relative to patient's use of biotin. Lab Interpretation Normal (test code = 15764-1) [facility] [id number] 01:03:38 Test Item Value Reference Interpretation Comments Range TROPONIN I (test 0.001 ng/mL See_Comment [Automated code = [id number]) message] The system which generated this result transmitted reference range : <=0.034. The reference range was not used to interpret this result as normal/abnormal . MEDHAT (test code = Reference (Normal) MEDHAT) Range (defined by the 99th percentile reference limit): <= 0.034 ng/mL Note: Cardiac troponin begins to rise 3-4 hours after the onset of ischemia. Repeat in 4-6 hours if the sample was drawn within 3-4 hours of the onset of the symptom and found normal. Diagnosis of myocardial injury is made with acute changes in cTn concentrations with at least one serial sample above the 99th percentile upper reference limit (URL), taken together with the patient's clinical presentation. Biotin has been reported to cause a negative bias, interpret results relative to patient's use of biotin. Lab Interpretation Normal (test code = 79731-3) [facility] [id number] 01:03:38 Test Item Value Reference Interpretation Comments Range TROPONIN I (test 0.001 ng/mL See_Comment [Automated code = [id number]) message] The system which generated this result transmitted reference range : <=0.034. The reference range was not used to interpret this result as normal/abnormal . MEDHAT (test code = Reference (Normal) MEDHAT) Range (defined by the 99th percentile reference limit): <= 0.034 ng/mL Note: Cardiac troponin begins to rise 3-4 hours after the onset of ischemia. Repeat in 4-6 hours if the sample was drawn within 3-4 hours of the onset of the symptom and found normal. Diagnosis of myocardial injury is made with acute changes in cTn concentrations with at least one serial sample above the 99th percentile upper reference limit (URL), taken together with the patient's clinical presentation. Biotin has been reported to cause a negative bias, interpret results relative to patient's use of biotin. Lab Interpretation Normal (test code = 10576-5) [facility] [id number] 01:03:38 Test Item Value Reference Interpretation Comments Range TROPONIN I (test 0.001 ng/mL See_Comment [Automated code = [id number]) message] The system which generated this result transmitted reference range : <=0.034. The reference range was not used to interpret this result as normal/abnormal . MEDHAT (test code = Reference (Normal) MEDHAT) Range (defined by the 99th percentile reference limit): <= 0.034 ng/mL Note: Cardiac troponin begins to rise 3-4 hours after the onset of ischemia. Repeat in 4-6 hours if the sample was drawn within 3-4 hours of the onset of the symptom and found normal. Diagnosis of myocardial injury is made with acute changes in cTn concentrations with at least one serial sample above the 99th percentile upper reference limit (URL), taken together with the patient's clinical presentation. Biotin has been reported to cause a negative bias, interpret results relative to patient's use of biotin. Lab Interpretation Normal (test code = 47564-8) [facility] [id number] 01:03:38 Test Item Value Reference Interpretation Comments Range TROPONIN I (test 0.001 ng/mL See_Comment [Automated code = [id number]) message] The system which generated this result transmitted reference range : <=0.034. The reference range was not used to interpret this result as normal/abnormal . MEDHAT (test code = Reference (Normal) MEDHAT) Range (defined by the 99th percentile reference limit): <= 0.034 ng/mL Note: Cardiac troponin begins to rise 3-4 hours after the onset of ischemia. Repeat in 4-6 hours if the sample was drawn within 3-4 hours of the onset of the symptom and found normal. Diagnosis of myocardial injury is made with acute changes in cTn concentrations with at least one serial sample above the 99th percentile upper reference limit (URL), taken together with the patient's clinical presentation. Biotin has been reported to cause a negative bias, interpret results relative to patient's use of biotin. Lab Interpretation Normal (test code = 51962-8) [facility] [id number] 01:03:38 Test Item Value Reference Interpretation Comments Range TROPONIN I (test 0.001 ng/mL See_Comment [Automated code = [id number]) message] The system which generated this result transmitted reference range : <=0.034. The reference range was not used to interpret this result as normal/abnormal . MEDHAT (test code = Reference (Normal) MEDHAT) Range (defined by the 99th percentile reference limit): <= 0.034 ng/mL Note: Cardiac troponin begins to rise 3-4 hours after the onset of ischemia. Repeat in 4-6 hours if the sample was drawn within 3-4 hours of the onset of the symptom and found normal. Diagnosis of myocardial injury is made with acute changes in cTn concentrations with at least one serial sample above the 99th percentile upper reference limit (URL), taken together with the patient's clinical presentation. Biotin has been reported to cause a negative bias, interpret results relative to patient's use of biotin. Lab Interpretation Normal (test code = 12977-8) [facility] [id number] 01:03:38 Test Item Value Reference Interpretation Comments Range TROPONIN I (test 0.001 ng/mL See_Comment [Automated code = [id number]) message] The system which generated this result transmitted reference range : <=0.034. The reference range was not used to interpret this result as normal/abnormal . MEDHAT (test code = Reference (Normal) MEDHAT) Range (defined by the 99th percentile reference limit): <= 0.034 ng/mL Note: Cardiac troponin begins to rise 3-4 hours after the onset of ischemia. Repeat in 4-6 hours if the sample was drawn within 3-4 hours of the onset of the symptom and found normal. Diagnosis of myocardial injury is made with acute changes in cTn concentrations with at least one serial sample above the 99th percentile upper reference limit (URL), taken together with the patient's clinical presentation. Biotin has been reported to cause a negative bias, interpret results relative to patient's use of biotin. Lab Interpretation Normal (test code = 04104-4) [facility] [id number] 01:03:38 Test Item Value Reference Interpretation Comments Range TROPONIN I (test 0.001 ng/mL See_Comment [Automated code = [id number]) message] The system which generated this result transmitted reference range : <=0.034. The reference range was not used to interpret this result as normal/abnormal . MEDHAT (test code = Reference (Normal) MEDHAT) Range (defined by the 99th percentile reference limit): <= 0.034 ng/mL Note: Cardiac troponin begins to rise 3-4 hours after the onset of ischemia. Repeat in 4-6 hours if the sample was drawn within 3-4 hours of the onset of the symptom and found normal. Diagnosis of myocardial injury is made with acute changes in cTn concentrations with at least one serial sample above the 99th percentile upper reference limit (URL), taken together with the patient's clinical presentation. Biotin has been reported to cause a negative bias, interpret results relative to patient's use of biotin. Lab Interpretation Normal (test code = 47230-0) [facility] [id number] 01:03:38 Test Item Value Reference Interpretation Comments Range TROPONIN I (test 0.001 ng/mL See_Comment [Automated code = [id number]) message] The system which generated this result transmitted reference range : <=0.034. The reference range was not used to interpret this result as normal/abnormal . MEDHAT (test code = Reference (Normal) MEDHAT) Range (defined by the 99th percentile reference limit): <= 0.034 ng/mL Note: Cardiac troponin begins to rise 3-4 hours after the onset of ischemia. Repeat in 4-6 hours if the sample was drawn within 3-4 hours of the onset of the symptom and found normal. Diagnosis of myocardial injury is made with acute changes in cTn concentrations with at least one serial sample above the 99th percentile upper reference limit (URL), taken together with the patient's clinical presentation. Biotin has been reported to cause a negative bias, interpret results relative to patient's use of biotin. Lab Interpretation Normal (test code = 08817-5) [facility] [id number] 01:03:38 Test Item Value Reference Interpretation Comments Range TROPONIN I (test 0.001 ng/mL See_Comment [Automated code = [id number]) message] The system which generated this result transmitted reference range : <=0.034. The reference range was not used to interpret this result as normal/abnormal . MEDHAT (test code = Reference (Normal) MEDHAT) Range (defined by the 99th percentile reference limit): <= 0.034 ng/mL Note: Cardiac troponin begins to rise 3-4 hours after the onset of ischemia. Repeat in 4-6 hours if the sample was drawn within 3-4 hours of the onset of the symptom and found normal. Diagnosis of myocardial injury is made with acute changes in cTn concentrations with at least one serial sample above the 99th percentile upper reference limit (URL), taken together with the patient's clinical presentation. Biotin has been reported to cause a negative bias, interpret results relative to patient's use of biotin. Lab Interpretation Normal (test code = 26059-9) [facility] [id number] 01:03:38 Test Item Value Reference Interpretation Comments Range TROPONIN I (test 0.001 ng/mL See_Comment [Automated code = [id number]) message] The system which generated this result transmitted reference range : <=0.034. The reference range was not used to interpret this result as normal/abnormal . MEDHAT (test code = Reference (Normal) MEDHAT) Range (defined by the 99th percentile reference limit): <= 0.034 ng/mL Note: Cardiac troponin begins to rise 3-4 hours after the onset of ischemia. Repeat in 4-6 hours if the sample was drawn within 3-4 hours of the onset of the symptom and found normal. Diagnosis of myocardial injury is made with acute changes in cTn concentrations with at least one serial sample above the 99th percentile upper reference limit (URL), taken together with the patient's clinical presentation. Biotin has been reported to cause a negative bias, interpret results relative to patient's use of biotin. Lab Interpretation Normal (test code = 03040-6) [facility] [id number] 01:03:38 Test Item Value Reference Interpretation Comments Range TROPONIN I (test 0.001 ng/mL See_Comment [Automated code = [id number]) message] The system which generated this result transmitted reference range : <=0.034. The reference range was not used to interpret this result as normal/abnormal . MEDHAT (test code = Reference (Normal) MEDHAT) Range (defined by the 99th percentile reference limit): <= 0.034 ng/mL Note: Cardiac troponin begins to rise 3-4 hours after the onset of ischemia. Repeat in 4-6 hours if the sample was drawn within 3-4 hours of the onset of the symptom and found normal. Diagnosis of myocardial injury is made with acute changes in cTn concentrations with at least one serial sample above the 99th percentile upper reference limit (URL), taken together with the patient's clinical presentation. Biotin has been reported to cause a negative bias, interpret results relative to patient's use of biotin. Lab Interpretation Normal (test code = 75947-4) [facility] [id number] 01:03:38 Test Item Value Reference Interpretation Comments Range TROPONIN I (test 0.001 ng/mL See_Comment [Automated code = [id number]) message] The system which generated this result transmitted reference range : <=0.034. The reference range was not used to interpret this result as normal/abnormal . MEDHAT (test code = Reference (Normal) MEDHAT) Range (defined by the 99th percentile reference limit): <= 0.034 ng/mL Note: Cardiac troponin begins to rise 3-4 hours after the onset of ischemia. Repeat in 4-6 hours if the sample was drawn within 3-4 hours of the onset of the symptom and found normal. Diagnosis of myocardial injury is made with acute changes in cTn concentrations with at least one serial sample above the 99th percentile upper reference limit (URL), taken together with the patient's clinical presentation. Biotin has been reported to cause a negative bias, interpret results relative to patient's use of biotin. Lab Interpretation Normal (test code = 93099-7) [facility] [id number] 01:03:38 Test Item Value Reference Interpretation Comments Range TROPONIN I (test 0.001 ng/mL See_Comment [Automated code = [id number]) message] The system which generated this result transmitted reference range : <=0.034. The reference range was not used to interpret this result as normal/abnormal . MEDHAT (test code = Reference (Normal) MEDHAT) Range (defined by the 99th percentile reference limit): <= 0.034 ng/mL Note: Cardiac troponin begins to rise 3-4 hours after the onset of ischemia. Repeat in 4-6 hours if the sample was drawn within 3-4 hours of the onset of the symptom and found normal. Diagnosis of myocardial injury is made with acute changes in cTn concentrations with at least one serial sample above the 99th percentile upper reference limit (URL), taken together with the patient's clinical presentation. Biotin has been reported to cause a negative bias, interpret results relative to patient's use of biotin. Lab Interpretation Normal (test code = 12944-1) [facility] [id number] 01:03:38 Test Item Value Reference Interpretation Comments Range TROPONIN I (test 0.001 ng/mL See_Comment [Automated code = [id number]) message] The system which generated this result transmitted reference range : <=0.034. The reference range was not used to interpret this result as normal/abnormal . MEDHAT (test code = Reference (Normal) MEDHAT) Range (defined by the 99th percentile reference limit): <= 0.034 ng/mL Note: Cardiac troponin begins to rise 3-4 hours after the onset of ischemia. Repeat in 4-6 hours if the sample was drawn within 3-4 hours of the onset of the symptom and found normal. Diagnosis of myocardial injury is made with acute changes in cTn concentrations with at least one serial sample above the 99th percentile upper reference limit (URL), taken together with the patient's clinical presentation. Biotin has been reported to cause a negative bias, interpret results relative to patient's use of biotin. Lab Interpretation Normal (test code = 66766-6) [facility] [id number] 01:03:38 Test Item Value Reference Interpretation Comments Range TROPONIN I (test 0.001 ng/mL See_Comment [Automated code = [id number]) message] The system which generated this result transmitted reference range : <=0.034. The reference range was not used to interpret this result as normal/abnormal . MEDHAT (test code = Reference (Normal) MEDHAT) Range (defined by the 99th percentile reference limit): <= 0.034 ng/mL Note: Cardiac troponin begins to rise 3-4 hours after the onset of ischemia. Repeat in 4-6 hours if the sample was drawn within 3-4 hours of the onset of the symptom and found normal. Diagnosis of myocardial injury is made with acute changes in cTn concentrations with at least one serial sample above the 99th percentile upper reference limit (URL), taken together with the patient's clinical presentation. Biotin has been reported to cause a negative bias, interpret results relative to patient's use of biotin. Lab Interpretation Normal (test code = 45882-3) [facility] [id number] 01:03:38 Test Item Value Reference Interpretation Comments Range TROPONIN I (test 0.001 ng/mL See_Comment [Automated code = [id number]) message] The system which generated this result transmitted reference range : <=0.034. The reference range was not used to interpret this result as normal/abnormal . MEDHAT (test code = Reference (Normal) MEDHAT) Range (defined by the 99th percentile reference limit): <= 0.034 ng/mL Note: Cardiac troponin begins to rise 3-4 hours after the onset of ischemia. Repeat in 4-6 hours if the sample was drawn within 3-4 hours of the onset of the symptom and found normal. Diagnosis of myocardial injury is made with acute changes in cTn concentrations with at least one serial sample above the 99th percentile upper reference limit (URL), taken together with the patient's clinical presentation. Biotin has been reported to cause a negative bias, interpret results relative to patient's use of biotin. Lab Interpretation Normal (test code = 20666-1) [facility] [id number] 01:03:38 Test Item Value Reference Interpretation Comments Range TROPONIN I (test 0.001 ng/mL See_Comment [Automated code = [id number]) message] The system which generated this result transmitted reference range : <=0.034. The reference range was not used to interpret this result as normal/abnormal . MEDHAT (test code = Reference (Normal) MEDHAT) Range (defined by the 99th percentile reference limit): <= 0.034 ng/mL Note: Cardiac troponin begins to rise 3-4 hours after the onset of ischemia. Repeat in 4-6 hours if the sample was drawn within 3-4 hours of the onset of the symptom and found normal. Diagnosis of myocardial injury is made with acute changes in cTn concentrations with at least one serial sample above the 99th percentile upper reference limit (URL), taken together with the patient's clinical presentation. Biotin has been reported to cause a negative bias, interpret results relative to patient's use of biotin. Lab Interpretation Normal (test code = 69652-0) [facility] [id number] 21:06:03 Test Item Value Reference Range Interpretation Comments ABO & RH (test code A Positive Performe d at [facility] = 20) Laboratory [facility] [address] [place], [place] [address]ll Free: [phone] A No. [id number] IAT (test code = Negative Performed a t [facility] 1185) Laboratory [facility] [address] [place], [place] [address]Toll Free: [phone] A No. [id number] [facility] [id number] 21:06:03 Test Item Value Reference Range Interpretation Comments ABO & RH (test code A Positive Performe d at [facility] = 20) Laboratory [facility] [address] [place], [place] [id number] Free: [phone] A No. [id number] IAT (test code = Negative Performed a t [facility] 1185) Laboratory [facility] [place], [place] [address]Toll Free: [phone] A No. [id number] [facility] and Screen - ONCE [id number] 21:06:03 Test Item Value Reference Range Interpretation Comments ABO & RH (test code A Positive Performe d at [facility] = 20) Laboratory [facility] [place], [place] [address]Toll Free: [phone] A No. [id number] IAT (test code = Negative Performed a t [facility] 1185) Laboratory [facility] Blood [place] [address]Toll Free: [phone] A No. [id number] [facility] and Screen - ONCE [id number] 21:06:03 Test Item Value Reference Range Interpretation Comments ABO & RH (test code A Positive Performe d at [facility] = 20) Laboratory [facility] [place], [place] [address]Toll Free: [phone] A No. [id number] IAT (test code = Negative Performed a t [facility] 1185) Laboratory [facility] Blood [place] [address]Toll Free: [phone] A No. [id number] [facility] and Screen - ONCE [id number] 21:06:03 Test Item Value Reference Range Interpretation Comments ABO & RH (test code A Positive Performe d at [facility] = 20) Laboratory [facility] [address] [place] [address]Wfpu Free: [phone] A No. [id number] IAT (test code = Negative Performed a t [facility] 1185) Laboratory [facility] [address] [place], [place] [address]Toll Free: [phone] A No. [id number] [facility] and Screen - ONCE [id number] 21:06:03 Test Item Value Reference Range Interpretation Comments ABO & RH (test code A Positive Performe d at [facility] = 20) Laboratory [facility] [address] [place], [place] [address]Toll Free: [phone] A No. [id number] IAT (test code = Negative Performed a t [facility] 1185) Laboratory [facility] [place] [address]Toll Free: [phone] A No. [id number] [facility] and Screen - ONCE [id number] 21:06:03 Test Item Value Reference Range Interpretation Comments ABO & RH (test code A Positive Performe d at [facility] = 20) Laboratory [facility] [place] [address]Toll Free: [phone] A No. [id number] IAT (test code = Negative Performed a t [facility] 1185) Laboratory [facility] [place] [address]Toll Free: [phone] A No. [id number] [facility] and Screen - ONCE [id number] 21:06:03 Test Item Value Reference Range Interpretation Comments ABO & RH (test code A Positive Performe d at [facility] = 20) Laboratory [facility] [place], [place] [address]Toll Free: [phone] A No. [id number] IAT (test code = Negative Performed a t [facility] 1185) Laboratory [facility] [address] [place], [place] [id number] Free: [phone] A No. [id number] [facility] and Screen - ONCE [id number] 21:06:03 Test Item Value Reference Range Interpretation Comments ABO & RH (test code A Positive Performe d at [facility] = 20) Laboratory [facility] [place], [place] [address]Toll Free: [phone] A No. [id number] IAT (test code = Negative Performed a t [facility] 1185) Laboratory [facility] Blood [place] [address]Toll Free: [phone] A No. [id number] [facility] [id number] 21:06:03 Test Item Value Reference Range Interpretation Comments ABO & RH (test code A Positive Performe d at [facility] = 20) Laboratory [facility] [place] [address]Toll Free: [phone] A No. [id number] IAT (test code = Negative Performed a t [facility] 1185) Laboratory [facility] Blood [address]Toll Free: [phone] A No. [id number] [facility] and Screen - ONCE [id number] 21:06:03 Test Item Value Reference Range Interpretation Comments ABO & RH (test code A Positive Performe d at [facility] = 20) Laboratory [facility] Blood [place] [address]Toll Free: [phone] A No. [id number] IAT (test code = Negative Performed a t [facility] 1185) Laboratory [facility] [address] [place], [place] [address]Toll Free: [phone] A No. [id number] [facility] and Screen - ONCE [id number] 21:06:03 Test Item Value Reference Range Interpretation Comments ABO & RH (test code A Positive Performe d at [facility] = 20) Laboratory [facility] Blood [address]Toll Free: [phone] A No. [id number] IAT (test code = Negative Performed a t [facility] 1185) Laboratory [facility] [address] [place], [place] [address]Toll Free: [phone] A No. [id number] [facility] [id number] 21:06:03 Test Item Value Reference Range Interpretation Comments ABO & RH (test code A Positive Performe d at [facility] = 20) Laboratory [facility] Blood [place] [address]Toll Free: [phone] A No. [id number] IAT (test code = Negative Performed a t [facility] 1185) Laboratory [facility] Blood [place] [address]Toll Free: [phone] A No. [id number] [facility] and Screen - ONCE [id number] 21:06:03 Test Item Value Reference Range Interpretation Comments ABO & RH (test code A Positive Performe d at [facility] = 20) Laboratory [facility] Blood [place] [address]Toll Free: [phone] A No. [id number] IAT (test code = Negative Performed a t [facility] 1185) Laboratory [facility] Blood [place] [address]Toll Free: [phone] A No. [id number] [facility] and Screen - ONCE [id number] 21:06:03 Test Item Value Reference Range Interpretation Comments ABO & RH (test code A Positive Performe d at [facility] = 20) Laboratory [facility] [address] [place] [address]Oaeo Free: [phone] A No. [id number] IAT (test code = Negative Performed a t [facility] 1185) Laboratory [facility] [address] [place], [place] [address]Toll Free: [phone] A No. [id number] [facility] and Screen - ONCE [id number] 21:06:03 Test Item Value Reference Range Interpretation Comments ABO & RH (test code A Positive Performe d at [facility] = 20) Laboratory [facility] [address] [place], [place] [address]Toll Free: [phone] A No. [id number] IAT (test code = Negative Performed a t [facility] 1185) Laboratory [facility] Blood [address]Toll Free: [phone] A No. [id number] [facility] - [facility] [id number] 21:06:03 Test Item Value Reference Range Interpretation Comments ABO & RH (test code A Positive Performe d at [facility] = 20) Laboratory [facility] [address] [place], [place] [address]Toll Free: [phone] A No. [id number] IAT (test code = Negative Performed a t [facility] 1185) Laboratory [facility] [address] [place], [place] [address]Toll Free: [phone] A No. [id number] [facility] - [facility] [id number] 21:06:03 Test Item Value Reference Range Interpretation Comments ABO & RH (test code A Positive Performe d at [facility] = 20) Laboratory [facility] [address] [place], [place] [address]Toll Free: [phone] A No. [id number] IAT (test code = Negative Performed a t [facility] 1185) Laboratory [facility] [address] [place] [address]Gldk Free: [phone] A No. [id number] [facility] and Screen - ONCE [id number] 21:06:03 Test Item Value Reference Range Interpretation Comments ABO & RH (test code A Positive Performe d at [facility] = 20) Laboratory [facility] [address] [place], [place] [address]Toll Free: [phone] A No. [id number] IAT (test code = Negative Performed a t [facility] 1185) Laboratory [facility] Blood [place] [address]Toll Free: [phone] A No. [id number] [facility] - [facility]CE [id number] 21:06:03 Test Item Value Reference Range Interpretation Comments ABO & RH (test code A Positive Performe d at [facility] = 20) Laboratory [facility] Blood [place] [address]Toll Free: [phone] A No. [id number] IAT (test code = Negative Performed a t [facility] 1185) Laboratory [facility] Blood [address]Toll Free: [phone] A No. [id number] [facility] Confirmation (Lab Only)2022-04-04 20:58:06 Test Item Value Reference Range Interpretation Comments ABO & RH (test code A Positive Performe d at [facility] = 20) Laboratory [facility] Blood [place] [address]Toll Free: [phone] A No. [id number] [facility] Confirmation (Lab Only)2022-04-04 20:58:06 Test Item Value Reference Range Interpretation Comments ABO & RH (test code A Positive Performe d at [facility] = 20) Laboratory [facility] Blood [place] [address]Toll Free: [phone] A No. [id number] [facility] Confirmation (Lab Only)2022-04-04 20:58:06 Test Item Value Reference Range Interpretation Comments ABO & RH (test code A Positive Performe d at [facility] = 20) Laboratory [facility] Blood [place] [address]Toll Free: [phone] A No. [id number] [facility] Confirmation (Lab Only)2022-04-04 20:58:06 Test Item Value Reference Range Interpretation Comments ABO & RH (test code A Positive Performe d at [facility] = 20) Laboratory [facility] [address] [place] [address] Free: [phone] A No. [id number] [facility] Confirmation (Lab Only)2022-04-04 20:58:06 Test Item Value Reference Range Interpretation Comments ABO & RH (test code A Positive Performe d at [facility] = 20) Laboratory [facility] [address] [place], [place] [address]Toll Free: [phone] A No. [id number] [facility] Confirmation (Lab Only)2022-04-04 20:58:06 Test Item Value Reference Range Interpretation Comments ABO & RH (test code A Positive Performe d at [facility] = 20) Laboratory [facility] [address] [place], [place] [address]Toll Free: [phone] A No. [id number] [facility] Confirmation (Lab Only)2022-04-04 20:58:06 Test Item Value Reference Range Interpretation Comments ABO & RH (test code A Positive Performe d at [facility] = 20) Laboratory [facility] [address] [place], [place] [address]Toll Free: [phone] A No. [id number] [facility] Confirmation (Lab Only)2022-04-04 20:58:06 Test Item Value Reference Range Interpretation Comments ABO & RH (test code A Positive Performe d at [facility] = 20) Laboratory [facility] [address] [place], [place] [address]Toll Free: [phone] A No. [id number] [facility] Confirmation (Lab Only)2022-04-04 20:58:06 Test Item Value Reference Range Interpretation Comments ABO & RH (test code A Positive Performe d at [facility] = 20) Laboratory [facility] [address] [place], [place] [address]Toll Free: [phone] A No. [id number] [facility] Confirmation (Lab Only)2022-04-04 20:58:06 Test Item Value Reference Range Interpretation Comments ABO & RH (test code A Positive Performe d at [facility] = 20) Laboratory [facility] Blood [place] [address]Toll Free: [phone] A No. [id number] [facility] Confirmation (Lab Only)2022-04-04 20:58:06 Test Item Value Reference Range Interpretation Comments ABO & RH (test code A Positive Performe d at [facility] = 20) Laboratory [facility] [place] [address]Toll Free: [phone] A No. [id number] [facility] Confirmation (Lab Only)2022-04-04 20:58:06 Test Item Value Reference Range Interpretation Comments ABO & RH (test code A Positive Performe d at [facility] = 20) Laboratory [facility] Blood [place] [address]Toll Free: [phone] A No. [id number] [facility] Confirmation (Lab Only)2022-04-04 20:58:06 Test Item Value Reference Range Interpretation Comments ABO & RH (test code A Positive Performe d at [facility] = 20) Laboratory [facility] [address] [place], [place] [address]Toll Free: [phone] A No. [id number] [facility] Confirmation (Lab Only)2022-04-04 20:58:06 Test Item Value Reference Range Interpretation Comments ABO & RH (test code A Positive Performe d at [facility] = 20) Laboratory [facility] [address] [place], [place] [address]Toll Free: [phone] A No. [id number] [facility] Confirmation (Lab Only)2022-04-04 20:58:06 Test Item Value Reference Range Interpretation Comments ABO & RH (test code A Positive Performe d at [facility] = 20) Laboratory [facility] [address] [place] [address] Free: [phone] A No. [id number] [facility] Confirmation (Lab Only)2022-04-04 20:58:06 Test Item Value Reference Range Interpretation Comments ABO & RH (test code A Positive Performe d at [facility] = 20) Laboratory [facility] Blood [place] [address]Toll Free: [phone] A No. [id number] [facility] Confirmation (Lab Only)2022-04-04 20:58:06 Test Item Value Reference Range Interpretation Comments ABO & RH (test code A Positive Performe d at [facility] = 20) Laboratory [facility] Blood [place] [address]Toll Free: [phone] A No. [id number] [facility] Confirmation (Lab Only)2022-04-04 20:58:06 Test Item Value Reference Range Interpretation Comments ABO & RH (test code A Positive Performe d at [facility] = 20) Laboratory [facility] Blood [place] [address]Toll Free: [phone] A No. [id number] [facility] Confirmation (Lab Only)2022-04-04 20:58:06 Test Item Value Reference Range Interpretation Comments ABO & RH (test code A Positive Performe d at [facility] = 20) Laboratory [facility] [address] [place], [place] [address]Toll Free: [phone] A No. [id number] [facility] Confirmation (Lab Only)2022-04-04 20:58:06 Test Item Value Reference Range Interpretation Comments ABO & RH (test code A Positive Performe d at [facility] = 20) Laboratory [facility] [address] [place] [address] Free: [phone] A No. [id number] [facility], [id number] 19:40:46 Test Item Value Reference Range Interpretation Comments PREG SERUM (test code Negative = 2739944680) MEDHAT (test code = MEDHAT) Less than 10 IU/L. ?If low titer or ectopic is suspected, resubmit specimen in 48-72 hours. [facility] BranchPREG[facility]NC[facility] TEST, [id number] 19:40:46 Test Item Value Reference Range Interpretation Comments PREG SERUM (test code Negative = 1045902189) MEDHAT (test code = MEDHAT) Less than 10 IU/L. ?If low titer or ectopic is suspected, resubmit specimen in 48-72 hours. [facility], [id number] 19:40:46 Test Item Value Reference Range Interpretation Comments PREG SERUM (test code Negative = 3839165606) MEDHAT (test code = MEDHAT) Less than 10 IU/L. ?If low titer or ectopic is suspected, resubmit specimen in 48-72 hours. [facility], [id number] 19:40:46 Test Item Value Reference Range Interpretation Comments PREG SERUM (test code Negative = 3181238626) MEDHAT (test code = MEDHAT) Less than 10 IU/L. ?If low titer or ectopic is suspected, resubmit specimen in 48-72 hours. [facility], [id number] 19:40:46 Test Item Value Reference Range Interpretation Comments PREG SERUM (test code Negative = 7546244864) MEDHAT (test code = MEDHAT) Less than 10 IU/L. ?If low titer or ectopic is suspected, resubmit specimen in 48-72 hours. [facility], [id number] 19:40:46 Test Item Value Reference Range Interpretation Comments PREG SERUM (test code Negative = 8054577893) MEDHAT (test code = MEDHAT) Less than 10 IU/L. ?If low titer or ectopic is suspected, resubmit specimen in 48-72 hours. [facility], [id number] 19:40:46 Test Item Value Reference Range Interpretation Comments PREG SERUM (test code Negative = 4331600358) MEDHAT (test code = MEDHAT) Less than 10 IU/L. ?If low titer or ectopic is suspected, resubmit specimen in 48-72 hours. [facility], [id number] 19:40:46 Test Item Value Reference Range Interpretation Comments PREG SERUM (test code Negative = 1084583972) MEDHAT (test code = MEDHAT) Less than 10 IU/L. ?If low titer or ectopic is suspected, resubmit specimen in 48-72 hours. [facility], [id number] 19:40:46 Test Item Value Reference Range Interpretation Comments PREG SERUM (test code Negative = 4662643795) MEDHAT (test code = MEDHAT) Less than 10 IU/L. ?If low titer or ectopic is suspected, resubmit specimen in 48-72 hours. [facility], [id number] 19:40:46 Test Item Value Reference Range Interpretation Comments PREG SERUM (test code Negative = 4142009543) MEDHAT (test code = MEDHAT) Less than 10 IU/L. ?If low titer or ectopic is suspected, resubmit specimen in 48-72 hours. [facility], [id number] 19:40:46 Test Item Value Reference Range Interpretation Comments PREG SERUM (test code Negative = 0703850861) MEDHAT (test code = MEDHAT) Less than 10 IU/L. ?If low titer or ectopic is suspected, resubmit specimen in 48-72 hours. [facility], [id number] 19:40:46 Test Item Value Reference Range Interpretation Comments PREG SERUM (test code Negative = 0143879504) MEDHAT (test code = MEDHAT) Less than 10 IU/L. ?If low titer or ectopic is suspected, resubmit specimen in 48-72 hours. [facility], [id number] 19:40:46 Test Item Value Reference Range Interpretation Comments PREG SERUM (test code Negative = 6187205482) MEDHAT (test code = MEDHAT) Less than 10 IU/L. ?If low titer or ectopic is suspected, resubmit specimen in 48-72 hours. [facility], [id number] 19:40:46 Test Item Value Reference Range Interpretation Comments PREG SERUM (test code Negative = 7365946630) MEDHAT (test code = MEDHAT) Less than 10 IU/L. ?If low titer or ectopic is suspected, resubmit specimen in 48-72 hours. [facility], [id number] 19:40:46 Test Item Value Reference Range Interpretation Comments PREG SERUM (test code Negative = 8853756616) MEDHAT (test code = MEDHAT) Less than 10 IU/L. ?If low titer or ectopic is suspected, resubmit specimen in 48-72 hours. [facility], [id number] 19:40:46 Test Item Value Reference Range Interpretation Comments PREG SERUM (test code Negative = 5012170665) MEDHAT (test code = MEDHAT) Less than 10 IU/L. ?If low titer or ectopic is suspected, resubmit specimen in 48-72 hours. [facility], [id number] 19:40:46 Test Item Value Reference Range Interpretation Comments PREG SERUM (test code Negative = 7817461542) MEDHAT (test code = MEDHAT) Less than 10 IU/L. ?If low titer or ectopic is suspected, resubmit specimen in 48-72 hours. [facility], [id number] 19:40:46 Test Item Value Reference Range Interpretation Comments PREG SERUM (test code Negative = 8637942293) MEDHAT (test code = MEDHAT) Less than 10 IU/L. ?If low titer or ectopic is suspected, resubmit specimen in 48-72 hours. [facility], [id number] 19:40:46 Test Item Value Reference Range Interpretation Comments PREG SERUM (test code Negative = 5367767686) MEDHAT (test code = MEDHAT) Less than 10 IU/L. ?If low titer or ectopic is suspected, resubmit specimen in 48-72 hours. [facility], [id number] 19:40:46 Test Item Value Reference Range Interpretation Comments PREG SERUM (test code Negative = 3626701627) MEDHAT (test code = MEDHAT) Less than 10 IU/L. ?If low titer or ectopic is suspected, resubmit specimen in 48-72 hours. [facility] WITH [id number] 18:55:21 Test Item Value Reference Range Interpretation Comments WBC (test code = See_Comment H [Automated 6690-2) message] The system which generated this result transmit gómez reference range : 4.30 - 11.10 10*3/?L. The reference range was not used to interpret this result as normal/abnormal . RBC (test code = See_Comment [Automated 789-8) message] The system which generated this result transmit gómez reference range : 3.93 - 5.25 10*6/?L. The reference range was not used to interpret this result as normal/abnormal . HGB (test code = 13.6 g/dL 11.6-15 718-7) HCT (test code = 41.8 % 35.7-45.2 4544-3) MCV (test code = 88.2 fL 80.6-95.5 787-2) MCH (test code = 28.7 pg 25.9-32.8 785-6) MCHC (test code = 32.5 g/dL 31.6-35.1 786-4) RDW-SD (test code = 43.0 fL 39-49.9 66840-3) RDW-CV (test code = 13.2 % 12-15.5 788-0) PLT (test code = See_Comment [Automated 777-3) message] The system which generated this result transmit gómez reference range : 166 - 358 10*3/ ?L. The reference range was not u sed to interpret th is result as normal/abnormal . MPV (test code = 10.8 fL 9.5-12.9 42743-6) NRBC/100 WBC (test See_Comment [Automat ed code = 4656096440) message] The system which generated this result transmit gómez reference range : 0.0 - 10.0 /100 WBCs. The reference range was not used to interpret this result as normal/abnormal . NRBC x10^3 (test code See_Comment [Auto mated = 1211721073) message] The system which generated this result transmit gómez reference range : 10*3/?L. The reference range was not used to interpret this result as normal/abnormal . GRAN MAT (NEUT) % 82.1 % (test code = 770-8) IMM GRAN % (test code 0.60 % = 6417849341) LYMPH % (test code = 12.4 % 736-9) MONO % (test code = 4.3 % 5905-5) EOS % (test code = 0.1 % 713-8) BASO % (test code = 0.5 % 706-2) GRAN MAT x10^3(ANC) 10.62 10*3/uL 1.88-7.09 H (test code = 9181181312) IMM GRAN x10^3 (test 0.08 10*3/uL 0-0.06 H code = 4888786350) LYMPH x10^3 (test code 1.60 10*3/uL 1.32-3.29 = 731-0) MONO x10^3 (test code 0.56 10*3/uL 0.33-0.92 = 742-7) EOS x10^3 (test code = 0.03-0.39 L 711-2) BASO x10^3 (test code 0.06 10*3/uL 0.01-0.07 = 704-7) Lab Interpretation Abnormal (test code = 64311-0) [facility]. METABOLIC PANEL (51751)2022-04-04 18:55:21 Test Item Value Reference Range Interpretation Comments NA (test code = 141 mmol/L 135-145 9104614267) K (test code = 4.5 mmol/L 3.5-5 1464596505) CL (test code = 103 mmol/L 98-108 4239261175) CO2 TOTAL (test code = 27 mmol/L 23-31 9303459268) AGAP (test code = 2-16 0029465541) BUN (test code = 14 mg/dL 7-23 5520229237) GLUCOSE (test code = 115 mg/dL 70-110 H 3417343253) CREATININE (test code = 0.62 mg/dL 0.5-1.04 7039345872) TOTAL BILI (test code = 0.7 mg/dL 0.1-1.9 5116906222) CALCIUM (test code = 9.5 mg/dL 8.6-10.6 5113674503) T PROTEIN (test code = 7.3 g/dL 6.3-8.2 9544439399) ALBUMIN (test code = 4.7 g/dL 3.5-5 5135635478) ALK PHOS (test code = 65 U/L 34-122 7129635328) ALTv (test code = 22 U/L 5-35 1742-6) AST(SGOT) (test code = 39 U/L 13-40 2591065804) eGFR (test code = mL/min/1.73m2 5695541557) MEDHAT (test code = MEDHAT) Association of [...] tests). Lab Interpretation Abnormal (test code = 17408-6) [facility] 18:55:21 Test Item Value Reference Range Interpretation Comments LIPASE (test code = 0937117665) 70 U/L 0-220 Lab Interpretation (test code = Normal 03312-4) [facility] 18:55:21 Test Item Value Reference Range Interpretation Comments LIPASE (test code = 5419745517) 70 U/L 0-220 Lab Interpretation (test code = Normal 60755-8) [facility] MET[facility]OLIC PANEL (12451)2022-04-04 18:55:21 Test Item Value Reference Range Interpretation Comments NA (test code = 141 mmol/L 135-145 5380431245) K (test code = 4.5 mmol/L 3.5-5 8393024840) CL (test code = 103 mmol/L 98-108 2564126543) CO2 TOTAL (test code = 27 mmol/L 23-31 7951684161) AGAP (test code = 2-16 3260433418) BUN (test code = 14 mg/dL 7-23 6139443761) GLUCOSE (test code = 115 mg/dL 70-110 H 6555429293) CREATININE (test code = 0.62 mg/dL 0.5-1.04 2506362229) TOTAL BILI (test code = 0.7 mg/dL 0.1-1.1 1210645637) CALCIUM (test code = 9.5 mg/dL 8.6-10.6 1335284687) T PROTEIN (test code = 7.3 g/dL 6.3-8.2 2487224486) ALBUMIN (test code = 4.7 g/dL 3.5-5 8012868319) ALK PHOS (test code = 65 U/L 34-122 8101651601) ALTv (test code = 22 U/L 5-35 1742-6) AST(SGOT) (test code = 39 U/L 13-40 8384367897) eGFR (test code = mL/min/1.73m2 2610982448) MEDHAT (test code = MEDHAT) Association of [...] tests). Lab Interpretation Abnormal (test code = 16299-3) [facility]2022-10-03 18:55:21 Test Item Value Reference Range Interpretation Comments LIPASE (test code = 6667650368) 70 U/L 0-220 Lab Interpretation (test code = Normal 09175-5) [address]10-03 18:55:21 Test Item Value Reference Range Interpretation Comments LIPASE (test code = 0552007820) 70 U/L 0-220 Lab Interpretation (test code = Normal 94296-5) [place] [address]-10-03 18:55:21 Test Item Value Reference Range Interpretation Comments LIPASE (test code = 6809100306) 70 U/L 0-220 Lab Interpretation (test code = Normal 21647-1) [place] [address]-03 18:55:21 Test Item Value Reference Range Interpretation Comments LIPASE (test code = 5029692656) 70 U/L 0-220 Lab Interpretation (test code = Normal 22909-2) [place] [address]10-03 18:55:21 Test Item Value Reference Range Interpretation Comments LIPASE (test code = 8153824052) 70 U/L 0-220 Lab Interpretation (test code = Normal 22169-1) [address]10-03 18:55:21 Test Item Value Reference Range Interpretation Comments LIPASE (test code = 1788743932) 70 U/L 0-220 Lab Interpretation (test code = Normal 77813-9) [address]10-03 18:55:21 Test Item Value Reference Range Interpretation Comments LIPASE (test code = 9803275482) 70 U/L 0-220 Lab Interpretation (test code = Normal 02123-4) [address]10-03 18:55:21 Test Item Value Reference Range Interpretation Comments LIPASE (test code = 6587124631) 70 U/L 0-220 Lab Interpretation (test code = Normal 81932-7) [address]10-03 18:55:21 Test Item Value Reference Range Interpretation Comments LIPASE (test code = 9114122282) 70 U/L 0-220 Lab Interpretation (test code = Normal 45075-3) [address]10-03 18:55:21 Test Item Value Reference Range Interpretation Comments LIPASE (test code = 7233967583) 70 U/L 0-220 Lab Interpretation (test code = Normal 88578-7) [address]10-03 18:55:21 Test Item Value Reference Range Interpretation Comments LIPASE (test code = 4953994265) 70 U/L 0-220 Lab Interpretation (test code = Normal 46344-0) [address]10-03 18:55:21 Test Item Value Reference Range Interpretation Comments LIPASE (test code = 3999385047) 70 U/L 0-220 Lab Interpretation (test code = Normal 77304-3) [address]10-03 18:55:21 Test Item Value Reference Range Interpretation Comments LIPASE (test code = 1305788772) 70 U/L 0-220 Lab Interpretation (test code = Normal 11646-2) [address]10-03 18:55:21 Test Item Value Reference Range Interpretation Comments LIPASE (test code = 4513436092) 70 U/L 0-220 Lab Interpretation (test code = Normal 15165-8) [address]10-03 18:55:21 Test Item Value Reference Range Interpretation Comments LIPASE (test code = 0803007659) 70 U/L 0-220 Lab Interpretation (test code = Normal 21731-7) [facility]21 Test Item Value Reference Range Interpretation Comments LIPASE (test code = 6601472531) 70 U/L 0-220 Lab Interpretation (test code = Normal 59224-5) [facility] 18:55:21 Test Item Value Reference Range Interpretation Comments LIPASE (test code = 9119122549) 70 U/L 0-220 Lab Interpretation (test code = Normal 98110-1) [facility] 18:55:21 Test Item Value Reference Range Interpretation Comments LIPASE (test code = 5806416815) 70 U/L 0-220 Lab Interpretation (test code = Normal 52551-8) [facility]. METABOLIC PANEL (88713)2022-04-01 04:58:46 Test Item Value Reference Range Interpretation Comments NA (test code = 139 mmol/L 135-145 1343771716) K (test code = 5.0 mmol/L 3.5-5 7930513276) CL (test code = 102 mmol/L 98-108 6996001741) CO2 TOTAL (test code 27 mmol/L 23-31 = 9750650798) AGAP (test code = 2-16 6653800772) BUN (test code = 13 mg/dL 7-23 9820698509) GLUCOSE (test code = 104 mg/dL 70-110 9069772546) CREATININE (test code 0.69 mg/dL 0.5-1.04 = 7721285982) TOTAL BILI (test code 0.5 mg/dL 0.1-1.1 = 2490824817) CALCIUM (test code = 9.6 mg/dL 8.6-10.6 0470915507) T PROTEIN (test code 7.2 g/dL 6.3-8.2 = 9104631988) ALBUMIN (test code = 4.6 g/dL 3.5-5 4660041035) ALK PHOS (test code = 60 U/L 34-122 1213674986) ALTv (test code = 15 U/L 5-35 1742-6) AST(SGOT) (test code 26 U/L 13-40 = 4141289959) eGFR (test code = mL/min/1.73m2 1295169362) MEDHAT (test code = MEDHAT) Association of Glomerular Filtration Rate (GFR) and Staging of Kidney Disease* + + +- +| GFR (mL/min/1.73 m2) ?| With Kidney Damage ?| ?Without Kidney Damage+ ------+ ----+ ------+| ?>90 ?| ?Stage one ?| ? Normal ?+ -+ + -+| ?60-89 ?| ?Stage two ?| ? Decreased GFR ? + + +- +| ?30-59 ?| ?Stage three ?| ? Stage three ? + + +- +| ?15-29 ?| ?Stage four ? | ? Stage four ?+ -+ + -+| ?<15 (or dialysis) ? ?| ?Stage five ? | ? Stage five ?+ -+ + -+ *Each stage assumes the associated GFR level [...] or urine or abnormalities in imaging tests). [facility] 04[facility]58:25 Test Item Value Reference Range Interpretation Comments LIPASE (test code = 0832252130) 71 U/L 0-220 Lab Interpretation (test code = Normal 59575-9) [facility] WITH [id number] 04:46:42 Test Item Value Reference Range Interpretation Comments WBC (test code = See_Comment [Automated message] 6690-2) The system Bahu generated this result transmitted ref erence range: 4.30 - 1 1.10 10*3/?L. The re ference range was not u sed to interpret this result as normal/abnor mal. RBC (test code = See_Comment [Automated message] 789-8) The system Bahu generated this result transmitted ref erence range: [...] RDW-SD (test code 42.5 fL 39-49.9 = 65405-7) RDW-CV (test code 13.2 % 12-15.5 = 788-0) PLT (test code = See_Comment [Automated message] 777-3) The system Bahu generated this result transmitted ref erence range: 166 - 35 8 10*3/?L. The re ference range was not u sed to interpret this result as normal/abnor mal. MPV (test code = 10.4 fL 9.5-12.9 60090-5) NRBC/100 WBC (test See_Comment [Automat ed message] code = 6558449996) The syste m which generated this result transmitted ref erence range: 0.0 - 10 .0 /100 WBCs. The refer ence range was not u sed to interpret this result as normal/abnor mal. NRBC x10^3 (test See_Comment [Automated message] code = 3425892671) The syste m which generated this result transmitted ref erence range: 10*3/?L. The reference range was not used to interpr et this result as normal/abnormal . GRAN MAT (NEUT) % 69.5 % (test code = 770-8) IMM GRAN % (test 0.40 % code = 4356440024) LYMPH % (test code 23.3 % = 736-9) MONO % (test code 5.3 % = 5905-5) EOS % (test code = 0.7 % 713-8) BASO % (test code 0.8 % = 706-2) GRAN MAT 5.73 10*3/uL 1.88-7.09 x10^3(ANC) (test code = 3412169560) IMM GRAN x10^3 0.03 10*3/uL 0-0.06 (test code = 6645129943) LYMPH x10^3 (test 1.92 10*3/uL 1.32-3.29 code = 731-0) MONO x10^3 (test 0.44 10*3/uL 0.33-0.92 code = 742-7) EOS x10^3 (test 0.06 10*3/uL 0.03-0.39 code = 711-2) BASO x10^3 (test 0.07 10*3/uL 0.01-0.07 code = 704-7) [facility] [id number] 04:37:00 Test Item Value Reference Range Interpretation Comments POCT PREG (test code = 1605) negative Lab Interpretation (test code = Normal 64180-3) [facility] [id number] 04:37:00 Test Item Value Reference Range Interpretation Comments POCT PREG (test code = 1605) negative Lab Interpretation (test code = Normal 50841-3) [facility], [id number] 14:05:00 Test Item Value Reference Range Interpretation Comments Coronavirus NAAT, COVD19 SARS results, (test code = including Patient [id number]) Name, or MRN, were Coronavirus NAAT, COVD19 ical-devices/emergenc (test code = j-xwk-etcrppxdgmpyqz. RCBIXTX6CAZN8.1) SARS-CoV-2 NAAT Result: Positive by RT-PCR A (test code = SARS-CoV-2 NAAT Result:) COVID-19 Status: AsymptomaticHCG, Urine Qual (LAB)2021-07-09 14:05:00 Test Item Value Reference Range Interpretation Comments HCG, Urine, Qual (test code = HCGU) Negative Negative Drug Screen,[id number] 14:05:00 Test Item Value Reference Range Interpretation [...] Negative code = UPROP) UA, Urinalysis w [id number] 14:05:00 Test Item Value Reference Range Interpretation Comments Color,Urine (test code = Yellow Yellow UCOL) Clarity,Urine (test code = Clear Clear UCLAR) Ph, Urine (test code = UPH) 8.5 5.0-8.0 H Specific [place],Urine 1.020 1.005-1.030 N (test code = USG) [...] Seen A UBACT) Complete Blood Count Auto [id number] 13:20:00 Test Item Value Reference Range Interpretation [...] code = NRBCP) 0 % Comprehensive Metabolic [id number] 13:20:00 Test Item Value Reference Range Interpretation [...] 72 U/L 46-116 N = ALP) Ethanol [id number] 13:20:00 Test Item Value Reference Range Interpretation [...] = HCGU) Negative Negative UA, Urinalysis Rflx Cult/[id number] 00:20:00 Test Item Value Reference Range Interpretation Comments Color,Urine (test code = Yellow Yellow UCOL) Clarity,Urine (test code = Clear Clear UCLAR) PH,Urine (test code = 7.5 5.5-8.5 UPH.XX) Specific [place],Urine 1.020 1.005-1.030 N (test code = USG) [...] cells/uL Negative (test code = ULEU) Urine [id number] 00:20:00 Test Item Value Reference Range Interpretation Comments RBC,Urine (test code = URBC.XX) 0-5 /HPF None Seen WBC,Urine (test code = UWBC.XX) 6-10 /HPF None Seen A Squamous Epithelial Cell,Urine 74-200 /HPF None Seen A (test code = USQEPI.XX) Bacteria,Urine (test code = Moderate /HPF None Seen A UBACT) Drug Screen,[id number] 00:20:00 Test Item Value Reference Range Interpretation [...] code = UPROP) Complete Blood Count Auto [id number] 00:09:00 Test Item Value Reference Range Interpretation [...] code = NRBCP) 0 % Comprehensive Metabolic [id number] 00:09:00 Test Item Value Reference Range Interpretation [...] 83 U/L 46-116 N = ALP) Ethanol [id number] 00:09:00 Test Item Value Reference Range Interpretation Comments Ethanol (test code < 3 mg/dL The pharm acological = ETOH) response to blo od alcohol levels mayvary from individual to i ndividual. The fatal ezio ntrationhas been reported t o be >400mg/dL. Coronavirus PCR, COVID19 [id number] 00:08:00 Test Item Value Reference Range Interpretation Comments Coronavirus PCR, For use under Emergency COVID19 Rapid (test Use Authorization (EUA) code = SARSCOV2) only. Coronavirus PCR, Reference Range: COVID19 Rapid (test Negative code = WLIZPYS07.1) SARS-CoV-2 PCR Result: Negative by RT-PCR (test code = SARS-CoV-2 PCR Result:) COVID-19 Status: AsymptomaticCARBAMAZEPHINE (TEGRETOL)2020-09-26 08:42:00 Test Item Value Reference Range Interpretation Comments CARBAMAZPN (test code = 98A) 19.3 ug/mL 4.0-12.0 HH CARBAMAZEPHINE (TEGRETOL)2020-09-26 05:04:00 Test Item Value Reference Range Interpretation Comments CARBAMAZPN (test code = 98A) 20.1 ug/mL 4.0-12.0 HH URINALYSIS WITH [id number] 02:45:00 Test Item Value Reference Range Interpretation [...] code = USPERM) /HPF NONE DRUGS OF [id number] 02:43:00 Test Item Value Reference Range Interpretation [...] the FDA and the [employer] (CAP) are more stringent than those required for this test. Therefore, the result should be interpreted with caution and close attention to other clinical and epidemiological data PRO TIME AND [id number] 00:51:00 Test Item Value Reference Range Interpretation [...] Heparin. Order Code is ANTI-XA COMPREHENSIVE METABOLIC [id number] 00:47:00 Test Item Value Reference Range Interpretation [...] GFR 154 See_Comment [Automated [employer] (test mL/min/1.73m\\S\\2 message] The code = GFRAA) [...] to interpret this result as normal/abnormal . [id number] 00:47:00 Test Item Value Reference Range Interpretation Comments ACETAMINPH (test code = 94M) 3.6 ug/mL 10.0-30.0 L CARDIAC [id number] 00:47:00 Test Item Value Reference Range Interpretation Comments TROPONIN I (test code = A84) <0.015 ng/mL 0.000-0.045 ALCOHOL BLOOD (ETOH)2020-09-26 00:44:00 Test Item Value Reference Range Interpretation Comments ETOH (test code = ETHANOL HALC) The result is to be used only for medical purposes ALCOHOL (test <10 mg/dL See_Comment [Automated me ssage] code = 56A) The system Bahu generated this result transmit gómez reference range : <=10. The refer ence range was not u sed to interpret th is result as normal/abnormal . [id number] 00:42:00 Test Item Value Reference Range Interpretation Comments SALICYLATE (test code = 94B) <1.7 mg/dL 2.8-20.0 L SERUM [id number] 00:38:00 Test Item Value Reference Range Interpretation [...]
[2022-05-28] MEDS ORDERED: LORAZEPAM 1 MG TABLET ONE (02:04)
[2022-05-28 03:07] LABS: SARS-COV-2 RT PCR POSITIVE (NEGATIVE)
--- NOTE | 2022-05-28 03:15 | ER ---
Nurse's Notes [facility] Name: Vanda Pompa Age: 22 yrs Sex: Female : 2000 Arrival Date: 05/28/2022 Time: 00:33 Bed 12 Private MD: Diagnosis: SARS-associated coronavirus as the cause of diseases classified elsewhere Presentation: 05/28 00:46 Chief complaint: Patient states: "Really bad anxiety and depression that I cannot get tw5 rid of. I also think I have strep throat, my throat hurts.". Coronavirus screen: Vaccine status: Patient reports receiving the 2nd dose of the covid vaccine. 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 Ebola Screen: Patient negative for fever greater than or equal to 101.5 degrees Fahrenheit, and additional compatible Ebola Virus Disease symptoms Patient denies exposure to infectious person. Patient denies travel to an Ebola-affected area in the 21 days before illness onset. Initial Sepsis Screen: Does the patient meet any 2 criteria? No. Patient's initial sepsis screen is negative. Does the patient have a suspected source of infection? No. Patient's initial sepsis screen is negative. Risk Assessment: Do you want to hurt yourself or someone else? Patient reports no desire to harm self or others. Onset of symptoms is unknown. 00:46 Method Of Arrival: EMS: [facility] tw5 00:46 Acuity: FREDY 4 tw5 Triage Assessment: 00:48 General: Appears in no apparent distress. Behavior is calm, cooperative, appropriate tw5 for age. Pain: Pain currently is 7 out of 10 on a pain scale. 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 - Social history:: Smoking status: Reported history of juuling and/or vaping. Screenin:09 Abuse screen: Denies threats or abuse. Denies injuries from another. Nutritional tw5 screening: No deficits noted. Tuberculosis screening: No symptoms or risk factors identified. Fall Risk None identified. Assessment: 02:09 General: Behavior is calm, cooperative, appropriate for age, anxious, Reports "I am tw5 feeling okay, just sad. My throat really hurts. I always have strep.". Neuro: No deficits noted. Cardiovascular: No deficits noted. Respiratory: No deficits noted. GI: No deficits noted. EENT: Throat is reddened. Vital Signs: 00:46 BP 112 / 90; Pulse 92; Resp 18; Temp 97.9; Pulse Ox 100% on R/A; Weight 50.8 kg; Height tw5 5 ft. 3 in. (160.02 cm); Pain 5/10; 00:46 Body Mass Index 19.84 (50.80 kg, 160.02 cm) tw5 ED Course: 00:33 Patient arrived in ED. tw5 00:41 Dick Nathan PA is PHCP. cp 00:41 Rubén Doss MD is Attending Physician. cp 00:48 Triage completed. tw5 00:48 Arm band placed on. tw5 02:09 Patient has correct armband on for positive identification. Bed in low position. Call tw5 light in reach. Side rails up X 1. Door closed. Noise minimized. Moved to private room. Warm blanket given. Verbal reassurance given. 02:09 COVID-19/FLU A+B Sent. tw5 02:09 Strep Sent. tw5 02:09 No provider procedures requiring assistance completed. Patient did not have IV access tw5 during this emergency room visit. Administered Medications: 02:09 Drug: Ativan (LORazepam) 1 mg Route: PO; tw5 03:59 Follow up: Response: No adverse reaction ll3 Medication: 02:09 VIS not applicable for this client. tw5 Outcome: 03:14 Discharge ordered by . rn 03:59 Discharged to home ambulatory, with friend. ll3 03:59 Condition: stable 03:59 Discharge instructions given to patient, Instructed on discharge instructions, follow up and referral plans. Demonstrated understanding of instructions, follow-up care. 03:59 Patient left the ED. ll3 Signatures: Rubén Doss MD MD rn Page, Corey, PA PA cp Wood, Tiffany tw5 Sharyn Rader RN RN 3
--- NOTE | 2022-05-28 03:16 | EDPHYS ---
Physician Documentation [facility] Name: Vanda Pompa Age: 22 yrs Sex: Female : 2000 Arrival Date: 05/28/2022 Time: 00:33 Bed 12 Private MD: ED Physician Rubén Doss HPI: 05/28 00:41 This 22 yrs old Female presents to ER via Unassigned with complaints of Anxiety. cp 00:42 The patient presents to the emergency department with anxiety, over unknown cp circumstances. Onset: The symptoms/episode began/occurred today. Associated signs and symptoms: Pertinent positives; sore throat, Pertinent negatives: fever, vomiting. Severity of symptoms: in the emergency department the symptoms are unchanged despite home interventions. 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 - Social history:: Smoking status: Reported history of juuling and/or vaping. ROS: 00:48 Constitutional: Negative for fever, poor PO intake. cp 00:48 ENT: Positive for sore throat, Negative for drainage from ear(s), ear pain, difficulty swallowing, difficulty handling secretions. 00:48 Respiratory: Positive for cough, Negative for shortness of breath, wheezing. 00:48 Abdomen/GI: Negative for abdominal pain, vomiting, diarrhea, constipation. 00:48 Skin: Negative for rash. 00:48 Neuro: Negative for headache. 00:48 Psych: Positive for anxiety. 00:48 All other systems are negative. Exam: 00:50 Head/Face: Normocephalic, atraumatic. cp 00:50 Constitutional: The patient appears in no acute distress, alert, awake, non-toxic, well developed, well nourished. 00:50 Eyes: Periorbital structures: appear normal, Conjunctiva: normal, no exudate, no injection, Lids and lashes: appear normal, bilaterally. 00:50 ENT: External ear(s): are unremarkable, Nose: is normal, Mouth: Lips: moist, Oral mucosa: moist, Posterior pharynx: Airway: no evidence of obstruction, patent, Tonsils: with erythema, no enlargement, no exudate, swelling, is not appreciated, erythema, that is mild, exudate, is not appreciated. 00:50 Neck: ROM/movement: is normal, is supple, no meningismus, no nuchal rigidity. 00:50 Chest/axilla: Inspection: normal. 00:50 Cardiovascular: Rate: normal, Rhythm: regular. 00:50 Respiratory: the patient does not display signs of respiratory distress, Respirations: normal, no use of accessory muscles, no retractions, labored breathing, is not present, Breath sounds: are clear throughout, no decreased breath sounds, no stridor, no wheezing. 00:50 Abdomen/GI: Exam negative for discomfort, distension, guarding, Inspection: abdomen appears normal. Vital Signs: 00:46 BP 112 / 90; Pulse 92; Resp 18; Temp 97.9; Pulse Ox 100% on R/A; Weight 50.8 kg; Height tw5 5 ft. 3 in. (160.02 cm); Pain 5/10; 00:46 Body Mass Index 19.84 (50.80 kg, 160.02 cm) tw5 MDM: 00:54 Patient medically screened. cp 05/28 00:43 Order name: Strep; Complete Time: 03:14 cp 05/28 00:43 Order name: COVID-19/FLU A+B; Complete Time: 03:14 cp 05/28 02:53 Order name: Throat Culture EDMS Administered Medications: 02:09 Drug: Ativan (LORazepam) 1 mg Route: PO; tw5 03:59 Follow up: Response: No adverse reaction ll3 Disposition: 03:14 Co-signature as Attending Physician, Rubén Doss MD. rn Disposition Summary: 05/28/22 03:14 Discharge Ordered Location: Home rn Problem: new rn Symptoms: have improved rn Condition: Stable rn Diagnosis - SARS-associated coronavirus as the cause of diseases classified elsewhere rn Followup: rn - With: Private Physician - When: As needed - Reason: Recheck today's complaints, Re-evaluation by your physician Discharge Instructions: - Discharge Summary Sheet rn - COVID-19 rn - 10 Things You Can Do to Manage Your COVID-19 Symptoms at Home - [facility] rn - Viral Illness, Adult rn - Prevent the Spread of COVID-19 if You Are Sick - CDC rn Forms: - Medication Reconciliation Form rn - Thank You Letter rn - 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
[2022-05-28 04:03] VITALS: BP 112/90; TEMP 97.9; O2SAT 100
== END 2022-05-28 03:59 | disposition home or self-care (01) ==
LOC: ER 00:28
DX: U07.1 COVID-19 (principal)
CPT/HCPCS: 87070; 87081; 0240U; 99283

== ENCOUNTER 2022-05-30 13:32 | Emergency (ER) | payer OTHER ==
--- OUTSIDE RECORDS SUMMARY | 2022-05-30 13:57 | XMS REPORT | Continuity of Care Document ---
:2000 Author Organization [facility] t Address [address] [place] [address] Care Team Providers Name Role Phone PCP, PATIENT DOES NOT HAVE A Primary Care Physician UnavailBOUCHRA Zambrano Attending Clinician Unavailable JAMES JACOBS Attending Clinician Unavailable Arnaldo BURGER MD, John Attending Clinician HANDY DOMINGUEZ Attending Clinician Unavailable IRASEMA ROBLEDO Attending Clinician Unavailable Irasema Michel Attending Clinician Shivani Castaneda Attending Clinician [facility] Attending Clinician Unavailable SHIVANI GUERRA Attending Clinician Unavailable Negrita Moise LVN Attending Clinician Keagan Luo MD Attending Clinician Clinic-Stv, Care Transition Attending Clinician Unavailable NOLVIA HUSAIN Attending Clinician Unavailable Nolvia Husain MD Attending Clinician DEONNA MELENDREZ Attending Clinician Unavailable Deonna Ferrell Attending Clinician Doctor Unassigned, [place] Attending Clinician Unavailable Vignesh Mack MD Attending Clinician Vaccine, [facility] Attending Clinician Unavailable VIGNESH MACK Attending Clinician [...] Clinician TIM HOLGUIN Attending Clinician Unavailable Immunization, [facility] [employer] Attending Clin ician Unavailable CHELSY ROMO [...] Clinician Unavailable Person Keagan ROBERTS Admitting Clinician PERSON[place]AGAN Admitting Clinician Unavailable DR ALAINA PARRY Admitting Clinician Unavailable Payers Payer Name Policy Type Policy Number Effective Date Expiration Date [place] [facility] [place] [id number] 2021 00:00:00 [facility] [id number] 2016 [facility] MEDICAID 00:00:00 Problems Condition Condition Condition Status Onset Resolution Last Treating Co mments Source Name Details Category Date Date Treatment Clinician Date Trauma Trauma Disease Active 2021-07 Univers 0-03 ity of 00:00: [place] 00 Medical Branch Menorrhagi Menorrhagi Disease Active U nivers a with a with 4-29 ity of regular regular 00:00: [place] cycle cycle 00 Medical Branch 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-01 [place] of depressive [place] disorder disorder 00 Medica [place] Branch Bipolar Bipolar Disease Active Overview: Univ ers disorder, disorder, 5-19 Formattin i ty of in partial in partial 00:00: g of this [place] remission, remission, 00 note Me dical most most might be Branch 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 Diagnosis per recent hospitali zaiton Abnormal Abnormal Disease Active 2019-07 Unive rs uterine uterine 0-20 ity of bleeding bleeding 00:00: [place] (AUB) (AUB) 00 Medical Branch SANDRA SANDRA Disease Active Univers (generaliz (generaliz 1-11 it y [place] ed anxiety ed [place] disorder[place] 00 [facility] Branch Attention Attention Disease Active 2008-07 Overview: Univers deficit deficit 2-22 Formattin ity o f hyperactiv hyperactiv 00:00: g of this [place] ity ity 00 note Medical disorder disorder might be Bran ch (ADHD) (ADHD) different from the original. 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 Allergies, Adverse Reactions, Alerts Allergy Allergy Status Severity Reaction(s) Onset Inactive Treating Comm ents Source Name Type Date Date Clinician No Known [facility] Allergie 00:00: s 00 No Known DA Active U 2020-07 [facility] Drug 07-25 Allergie 00:00: s 00 Unable DA Active U 2020-07 [facility] to 07-25 Assess 00:00: 00 No Known DA Active [facility] s NO KNOWN Drug Active Univers ALLERGIE Class ity of [facility] Family History Family Member Diagnosis Comments Start Date Stop Date Source Natural brother Psychiatry [facility]it y [facility] Natural father Alcohol abuse Univers [facility] Natural father Substance abuse [facility] Natural mother Psychiatry [facility] Social History Social Habit Start Date Stop Date Quantity Comments Source History [facility] o f Alcohol Comment [place] Med ical Branch Exposure to 2022-05-09 2022-05-19 Not sure [facility] SARS-CoV-2 00:00:00 10:21:00 [facility] (event) Branch Alcohol intake 2022-05-19 2022-05-19 Lifetime University of 00:00:00 00:00:00 non-drinker [facility] (finding) Branch Tobacco use and 2022-01-17 2022-01-17 Smokeless tobacco Un iversity of exposure 00:00:00 00:00:00 non-user [place] Medical Branch History SDWI 2020-04-20 2020-04-20 1 University o f Alcohol Frequency 00:00:00 00:00:00 [place] M edical Branch History SDWI 2020-04-20 2020-04-20 99 University o f Alcohol Std 00:00:00 00:00:00 [place] Medical Drinks Branch History SDWI 2020-04-20 2020-04-20 1 University o f Alcohol Binge 00:00:00 00:00:00 [place] Medic al Branch Sex Assigned At [birth year] Universit y of 00:00:00 00:00:00 [facility] Smoking Status Start Date Stop Date Source Never smoked tobacco [facility] Medications Ordered Filled Start Stop Current Ordering Indication Dosage Frequency Signature Comments Components Source Medication Medication Date Date Medication? Clinician (SIG) Name Name ARIPiprazol 2021-07- No [id number] 300mg Univers e (ABILIFY 07-19 ity of MAINTENA) 17:00: 16:17 [place] injection 00 :00 Medical SSRR 300 mg Branch atomoxetine 2021-07 Yes [id number] 40mg Take 1 Univers 40 mg 0-31 capsule by ity of capsule 00:00: mouth in [place] 00 the Medical morning. Branch lamoTRIgine 2021-07 Yes [id number] 25mg Take 1 Univers 25 mg 0-31 tablet by ity of tablet 00:00: mouth in [place] the Medical morning. Branch atomoxetine 2021-07 Yes [id number] 40mg Take 1 Univers 40 mg 0-31 capsule by ity of capsule 00:00: mouth in [place] the Medical morning. Branch lamoTRIgine 2021-07 Yes [id number] 25mg Take 1 Univers 25 mg 0-31 tablet by ity of tablet 00:00: mouth in [place] 00 the Medical morning. Branch atomoxetine 2021-07 Yes [id number] 40mg Take 1 Univers 40 mg 0-31 capsule by ity of capsule 00:00: mouth in [place] the Medical morning. Branch lamoTRIgine 2021-07 Yes [id number] 25mg Take 1 Univers 25 mg 0-31 tablet by ity of tablet 00:00: mouth in [place] the Medical morning. Branch atomoxetine 2021-07 Yes [id number] 40mg Take 1 Univers 40 mg 0-31 capsule by ity of capsule 00:00: mouth in [place] the Medical morning. Branch lamoTRIgine 2021-07 Yes [id number] 25mg Take 1 Univers 25 mg 0-31 tablet by ity of tablet 00:00: mouth in [place] 00 the Medical morning. Branch atomoxetine 2021-07 Yes [id number] 40mg Take 1 Univers 40 mg 0-31 capsule by ity of capsule 00:00: mouth in [place] 00 the Medical morning. Branch lamoTRIgine 2021-07 Yes [id number] 25mg Take 1 Univers 25 mg 0-31 tablet by ity of tablet 00:00: mouth in [place] 00 the Medical morning. Branch atomoxetine 2021-07 Yes [id number] 40mg Take 1 Univers 40 mg 0-31 capsule by ity of capsule 00:00: mouth in [place] 00 the Medical morning. Branch lamoTRIgine 2021-07 Yes [id number] 25mg Take 1 Univers 25 mg 0-31 tablet by ity of tablet 00:00: mouth in [place] 00 the Medical morning. Branch atomoxetine 2021-07 Yes [id number] 40mg Take 1 Univers 40 mg 0-31 capsule by ity of capsule 00:00: mouth in [place] 00 the Medical morning. Branch lamoTRIgine 2021-07 Yes [id number] 25mg Take 1 Univers 25 mg 0-31 tablet by ity of tablet 00:00: mouth in [place] 00 the Medical morning. Branch naltrexone 2021-07- Yes [id number] 50mg Take 1 Univers 50 mg 0-31 01-30 tablet by ity of tablet 00:00: 05:59 mouth in [place] 00 :00 the Medical morning Branch for 90 days. naltrexone 2021-07- Yes [id number] 50mg Take 1 Univers 50 mg 0-31 01-30 tablet by ity of tablet 00:00: 05:59 mouth in [place] 00 :00 the [facility] morning Branch for 90 days. naltrexone 2021-07- Yes [id number] 50mg Take 1 Univers 50 mg 0-31 01-30 tablet by ity of tablet 00:00: 05:59 mouth in [place] 00 :00 the Medical morning Branch for 90 days. naltrexone 2021-07- Yes [id number] 50mg Take 1 Univers 50 mg 0-31 01-30 tablet by ity of tablet 00:00: 05:59 mouth in [place] 00 :00 the Medical morning Branch for 90 days. naltrexone 2021-07- Yes [id number] 50mg Take 1 Univers 50 mg 0-31 01-30 tablet by ity of tablet 00:00: 05:59 mouth in [place] 00 :00 the Medical morning Branch for 90 days. naltrexone 2021-07- Yes [id number] 50mg Take 1 Univers 50 mg 0-31 01-30 tablet by ity of tablet 00:00: 05:59 mouth in [place] 00 :00 the Medical morning Branch for 90 days. naltrexone 2021-07- Yes [id number] 50mg Take 1 Univers 50 mg 0-31 01-30 tablet by ity of tablet 00:00: 05:59 mouth in [place] 00 :00 the Medical morning Branch for 90 days. ARIPiprazol 2021-07- No [id number] 300mg Univers e (ABILIFY 0-20 10-20 ity of MAINTENA) 15:15: 15:46 [place] injection 00 :00 Medical SSRR 300 mg Branch ARIPiprazol 2021-07- No [id number] 300mg Univers e (ABILIFY 0-20 10-20 ity of MAINTENA) 15:15: 15:46 [place] injection 00 :00 Medical SSRR 300 mg Branch ARIPiprazol 2021-07- No [id number] 300mg Univers e (ABILIFY 0-20 10-20 ity of MAINTENA) 15:15: 15:46 [place] injection 00 :00 Medical SSRR 300 mg Branch ARIPiprazol 2021-07- No [id number] 300mg Univers e (ABILIFY 0-20 10-20 ity of MAINTENA) 15:15: 15:46 [place] injection 00 :00 Medical SSRR 300 mg Branch ARIPiprazol 2021-07- No [id number] 300mg Univers e (ABILIFY 0-20 10-20 ity of MAINTENA) 15:15: 15:46 [place] injection 00 :00 Medical SSRR 300 mg Branch ARIPiprazol 2021-07- No [id number] 300mg Univers e (ABILIFY 0-20 10-20 ity of MAINTENA) 15:15: 15:46 [place] injection 00 :00 Medical SSRR 300 mg Branch ARIPiprazol 2021-07- Yes [id number] 300mg Univers e (ABILIFY 0-19 10-20 ity [...] by ity of tablet 00:00: mouth in [place] 00 the Medical morning. Branch lamoTRIgine 2022-1 Yes 25mg Take 1 Univ ers 25 mg 0-18 tablet by ity of tablet 00:00: mouth in [place] 00 the Medical morning. Branch lamoTRIgine 2022-1 Yes 25mg Take 1 Univ ers 25 mg 0-18 tablet by ity of tablet 00:00: mouth in [place] 00 the Medical morning. Branch lamoTRIgine 2022-1 Yes 25mg Take 1 Univ ers 25 mg 0-18 tablet by ity of tablet 00:00: mouth in [place] 00 the Medical morning. Branch lamoTRIgine 2022-1 Yes 25mg Take 1 Univ ers 25 mg 0-18 tablet by ity of tablet 00:00: mouth in [place] 00 the Medical morning. Branch lamoTRIgine 2022-1 Yes 25mg Take 1 Univ ers 25 mg 0-18 tablet by ity of tablet 00:00: mouth in [place] 00 the Medical morning. Branch lamoTRIgine 2022-1 Yes 25mg Take 1 Univ ers 25 mg 0-18 tablet by ity of tablet 00:00: mouth in [place] 00 the Medical morning. Branch lamoTRIgine 2022-1 Yes 25mg Take 1 Univ ers 25 mg 0-18 tablet by ity of tablet 00:00: mouth in [place] 00 the Medical morning. Branch lamoTRIgine 2022-1 Yes 25mg Take 1 Univ ers 25 mg 0-18 tablet by ity of tablet 00:00: mouth in [place] 00 the Medical morning. Branch lamoTRIgine 2022-1 Yes 25mg Take 1 Univ ers 25 mg 0-18 tablet by ity of tablet 00:00: mouth in [place] 00 the Medical morning. Branch lamoTRIgine 2022-1 Yes 25mg Take 1 Univ ers 25 mg 0-18 tablet by ity of tablet 00:00: mouth in [place] 00 the Medical morning. Branch lamoTRIgine 2022-1 2022- No 25mg Take 1 Uni vers 25 mg 0-18 10-31 tablet by ity of tablet 00:00: 00:00 mouth in [place] 00 :00 the Medical morning. Branch lamoTRIgine 2022-1 2022- No 25mg Take 1 Uni vers 25 mg 0-18 10-31 tablet by ity of tablet 00:00: 00:00 mouth in [place] 00 :00 the Medical morning. Branch lamoTRIgine 2021-07- No 25mg Take 1 Uni vers 25 mg 0-18 10-31 tablet by ity of tablet 00:00: 00:00 mouth in [place] 00 :00 the Medical morning. Branch lamoTRIgine 2021-07- No 25mg Take 1 Uni vers 25 mg 0-18 10-31 tablet by ity of tablet 00:00: 00:00 mouth in [place] 00 :00 the Medical morning. Branch atomoxetine 2021-07 Yes [id number] 40mg Take 1 Univers 40 mg 0-13 capsule by ity of capsule 00:00: mouth in [place] 00 the Medical morning. Branch atomoxetine 2021-07 Yes [id number] 40mg Take 1 Univers 40 mg 0-13 capsule by ity of capsule 00:00: mouth in [place] 00 the Medical morning. Branch atomoxetine 2021-07 Yes [id number] 40mg Take 1 Univers 40 mg 0-13 capsule by ity of capsule 00:00: mouth in [place] the Medical morning. Branch atomoxetine 2021-07 Yes [id number] 40mg Take 1 Univers 40 mg 0-13 capsule by ity of capsule 00:00: mouth in [place] 00 the Medical morning. Branch atomoxetine 2021-07 Yes [id number] 40mg Take 1 Univers 40 mg 0-13 capsule by ity of capsule 00:00: mouth in [place] the Medical morning. Branch atomoxetine 2021-07 Yes [id number] 40mg Take 1 Univers 40 mg 0-13 capsule by ity of capsule 00:00: mouth in [place] the Medical morning. Branch atomoxetine 2021-07 Yes [id number] 40mg Take 1 Univers 40 mg 0-13 capsule by ity of capsule 00:00: mouth in [place] 00 the Medical morning. Branch atomoxetine 2021-07 Yes [id number] 40mg Take 1 Univers 40 mg 0-13 capsule by ity of capsule 00:00: mouth in [place] 00 the Medical morning. Branch atomoxetine 2021- Yes [id number] 40mg Take 1 Univers 40 mg 0-13 capsule by ity of capsule 00:00: mouth in [place] 00 the Medical morning. Branch atomoxetine 2021- Yes [id number] 40mg Take 1 Univers 40 mg 0-13 capsule by ity of capsule 00:00: mouth in [place] 00 the Medical morning. Branch atomoxetine 2021-07 Yes [id number] 40mg Take 1 Univers 40 mg 0-13 capsule by ity of capsule 00:00: mouth in [place] 00 the Medical morning. Branch atomoxetine 2021-07 Yes [id number] 40mg Take 1 Univers 40 mg 0-13 capsule by ity of capsule 00:00: mouth in [place] the Medical morning. Branch atomoxetine 2021-07 Yes [id number] 40mg Take 1 Univers 40 mg 0-13 capsule by ity of capsule 00:00: mouth in [place] the Medical morning. Branch atomoxetine 2021-07 Yes [id number] 40mg Take 1 Univers 40 mg 0-13 capsule by ity of capsule 00:00: mouth in [place] 00 the Medical morning. Branch atomoxetine 2021-07 Yes [id number] 40mg Take 1 Univers 40 mg 0-13 capsule by ity of capsule 00:00: mouth in [place] the Medical morning. Branch atomoxetine 2021-07 Yes [id number] 40mg Take 1 Univers 40 mg 0-13 capsule by ity of capsule 00:00: mouth in [place] the Medical morning. Branch atomoxetine 2021-07 Yes [id number] 40mg Take 1 Univers 40 mg 0-13 capsule by ity of capsule 00:00: mouth in [place] the Medical morning. Branch atomoxetine 2021-07 Yes [id number] 40mg Take 1 Univers 40 mg 0-13 capsule by ity of capsule 00:00: mouth in [place] 00 the Medical morning. Branch atomoxetine 2021-07- No [id number] 40mg Take 1 Univers 40 mg 0-13 10-31 capsule by ity of capsule 00:00: 00:00 mouth in [place] 00 :00 the Medical morning. Branch atomoxetine 2021-07- No [id number] 40mg Take 1 Univers 40 mg 0-13 10-31 capsule by ity of capsule 00:00: 00:00 mouth in [place] 00 :00 the Medical morning. Branch atomoxetine 2021-07- No [id number] 40mg Take 1 Univers 40 mg 0-13 10-31 capsule by ity of capsule 00:00: 00:00 mouth in [place] 00 :00 the Medical morning. Branch atomoxetine 2021-07- No [id number] 40mg Take 1 Univers 40 mg 0-13 10-31 capsule by ity of capsule 00:00: 00:00 mouth in [place] 00 :00 the Medical morning. Branch NaCl 0.9% 2021-07- No 1000mL at 999 Uni vers (NS) bolus 0-09 10-10 mL/hr, ity of infusion 23:45: 03:09 1,000 mL, [place] as 1,000 mL 00 :00 IV Medical Infusion, Branch ONCE, 1 dose, On 04/10/22 at 1845, ARLEN atomoxetine 2021- Yes 40mg Take 1 Univ ers 40 mg 0-07 capsule by ity of capsule 00:00: mouth in [place] 00 the Medical morning. Branch lamoTRIgine 2021- Yes 25mg Take 1 Univ ers 25 mg 0-07 tablet by ity of tablet 00:00: mouth in [place] 00 the Medical morning. Branch atomoxetine 2021-1 Yes 40mg Take 1 Univ ers 40 mg 0-07 capsule by ity of capsule 00:00: mouth in [place] 00 the Medical morning. Branch lamoTRIgine 2021-1 Yes 25mg Take 1 Univ ers 25 mg 0-07 tablet by ity of tablet 00:00: mouth in [place] 00 the Medical morning. Branch atomoxetine 2021-1 Yes 40mg Take 1 Univ ers 40 mg 0-07 capsule by ity of capsule 00:00: mouth in [place] 00 the Medical morning. Branch lamoTRIgine 2021-1 Yes 25mg Take 1 Univ ers 25 mg 0-07 tablet by ity of tablet 00:00: mouth in [place] 00 the Medical morning. Branch atomoxetine 2021-1 Yes 40mg Take 1 Univ ers 40 mg 0-07 capsule by ity of capsule 00:00: mouth in [place] 00 the Medical morning. Branch lamoTRIgine 2021-1 Yes 25mg Take 1 Univ ers 25 mg 0-07 tablet by ity of tablet 00:00: mouth in [place] 00 the Medical morning. Branch lamoTRIgine 2021-1 Yes 25mg Take 1 Univ ers 25 mg 0-07 tablet by ity of tablet 00:00: mouth in [place] 00 the Medical morning. Branch lamoTRIgine 2021-1 Yes 25mg Take 1 Univ ers 25 mg 0-07 tablet by ity of tablet 00:00: mouth in [place] 00 the Medical morning. Branch lamoTRIgine 2021-1 Yes 25mg Take 1 Univ ers 25 mg 0-07 tablet by ity of tablet 00:00: mouth in [place] 00 the Medical morning. Branch lamoTRIgine 2021-07 Yes 25mg Take 1 Univ ers 25 mg 0-07 tablet by ity of tablet 00:00: mouth in [place] 00 the Medical morning. Branch lamoTRIgine 2021-07 Yes 25mg Take 1 Univ ers 25 mg 0-07 tablet by ity of tablet 00:00: mouth in [place] 00 the Medical morning. Branch lamoTRIgine 2021-07 Yes 25mg Take 1 Univ ers 25 mg 0-07 tablet by ity of tablet 00:00: mouth in [place] 00 the Medical morning. Branch polyethylen 2021-07- Yes [id number] 17g Take 1 Univers e glycol 0-07 11-07 Packet by ity o f 3350 17 00:00: 05:59 mouth in [place] gram powder 00 :00 the Medical morning Branch for 30 days. polyethylen 2021-07- Yes [id number] 17g Take 1 Univers e glycol 0-07 11-07 Packet by ity o f 3350 17 00:00: 05:59 mouth in [place] gram powder 00 :00 the [facility] morning Branch for 30 days. polyethylen 2021-07- Yes [id number] 17g Take 1 Univers e glycol 0-07 11-07 Packet by ity o f 3350 17 00:00: 05:59 mouth in [place] gram powder 00 :00 the Medical morning Branch for 30 days. polyethylen 2021-07- Yes [id number] 17g Take 1 Univers e glycol 0-07 11-07 Packet by ity o f 3350 17 00:00: 05:59 mouth in [place] gram powder 00 :00 the Medical morning Branch for 30 days. polyethylen 2021-07- Yes [id number] 17g Take 1 Univers e glycol 0-07 11-07 Packet by ity o f 3350 17 00:00: 05:59 mouth in [place] gram powder 00 :00 the Medical morning Branch for 30 days. polyethylen 2021-07- Yes [id number] 17g Take 1 Univers e glycol 0-07 11-07 Packet by ity o f 3350 17 00:00: 05:59 mouth in [place] gram powder 00 :00 the Medical morning Branch for 30 days. polyethylen 2021-07- Yes [id number] 17g Take 1 Univers e glycol 0-07 11-07 Packet by ity o f 3350 17 00:00: 05:59 mouth in [place] gram powder 00 :00 the Medical morning Branch for 30 days. polyethylen 2021-07- Yes [id number] 17g Take 1 Univers e glycol 0-07 11-07 Packet by ity o f 3350 17 00:00: 05:59 mouth in [place] gram powder 00 :00 the Medical morning Branch for 30 days. polyethylen 2021-07- Yes [id number] 17g Take 1 Univers e glycol 0-07 11-07 Packet by ity o f 3350 17 00:00: 05:59 mouth in [place] gram powder 00 :00 the Medical morning Branch for 30 days. polyethylen 2021-07- Yes [id number] 17g Take 1 Univers e glycol 0-07 11-07 Packet by ity o f 3350 17 00:00: 05:59 mouth in [place] gram powder 00 :00 the Medical morning Branch for 30 days. polyethylen 2021-07- Yes [id number] 17g Take 1 Univers e glycol 0-07 11-07 Packet by ity o f 3350 17 00:00: 05:59 mouth in [place] gram powder 00 :00 the Medical morning Branch for 30 days. polyethylen 2021-07- Yes [id number] 17g Take 1 Univers e glycol 0-07 11-07 Packet by ity o f 3350 17 00:00: 05:59 mouth in [place] gram powder 00 :00 the Medical morning Branch for 30 days. polyethylen 2021-07- Yes [id number] 17g Take 1 Univers e glycol 0-07 11-07 Packet by ity o f 3350 17 00:00: 05:59 mouth in [place] gram powder 00 :00 the Medical morning Branch for 30 days. polyethylen 2021-07- Yes [id number] 17g Take 1 Univers e glycol 0-07 11-07 Packet by ity o f 3350 17 00:00: 05:59 mouth in [place] gram powder 00 :00 the Medical morning Branch for 30 days. polyethylen 2021-07- Yes [id number] 17g Take 1 Univers e glycol 0-07 11-07 Packet by ity o f 3350 17 00:00: 05:59 mouth in [place] gram powder 00 :00 the Medical morning Branch for 30 days. polyethylen 2021-07- Yes [id number] 17g Take 1 Univers e glycol 0-07 11-07 Packet by ity o f 3350 17 00:00: 05:59 mouth in [place] gram powder 00 :00 the Medical morning Branch for 30 days. polyethylen 2021-07- Yes [id number] 17g Take 1 Univers e glycol 0-07 11-07 Packet by ity o f 3350 17 00:00: 05:59 mouth in [place] gram powder 00 :00 the Medical morning Branch for 30 days. polyethylen 2021-07- Yes [id number] 17g Take 1 Univers e glycol 0-07 11-07 Packet by ity o f 3350 17 00:00: 05:59 mouth in [place] gram powder 00 :00 the Medical morning Branch for 30 days. polyethylen 2021-07- Yes [id number] 17g Take 1 Univers e glycol 0-07 11-07 Packet by ity o f 3350 17 00:00: 05:59 mouth in [place] gram powder 00 :00 the Medical morning Branch for 30 days. polyethylen 2021-07- Yes [id number] 17g Take 1 Univers e glycol 0-07 11-07 Packet by ity o f 3350 17 00:00: 05:59 mouth in [place] gram powder 00 :00 the Medical morning Branch for 30 days. polyethylen 2021-07- Yes [id number] 17g Take 1 Univers e glycol 0-07 11-07 Packet by ity o f 3350 17 00:00: 05:59 mouth in [place] gram powder 00 :00 the Medical morning Branch for 30 days. polyethylen 2021-07- Yes [id number] 17g Take 1 Univers e glycol 0-07 11-07 Packet by ity o f 3350 17 00:00: 05:59 mouth in [place] gram powder 00 :00 the Medical morning Branch for 30 days. polyethylen 2021-07- Yes [id number] 17g Take 1 Univers e glycol 0-07 11-07 Packet by ity o f 3350 17 00:00: 05:59 mouth in [place] gram powder 00 :00 the Medical morning Branch for 30 days. polyethylen 2021-07- Yes [id number] 17g Take 1 Univers e glycol 0-07 11-07 Packet by ity o f 3350 17 00:00: 05:59 mouth in [place] gram powder 00 :00 the Medical morning Branch for 30 days. polyethylen 2021-07- Yes [id number] 17g Take 1 Univers e glycol 0-07 11-07 Packet by ity o f 3350 17 00:00: 05:59 mouth in [place] gram powder 00 :00 the Medical morning Branch for 30 days. polyethylen 2021-07- No [id number] 17g Take 1 Univers e glycol 0-07 11-07 Packet by ity o f 3350 17 00:00: 05:59 mouth in [place] gram powder 00 :00 the Medical morning Branch for 30 days. lamoTRIgine 2021-2021- No 25mg Take 1 Uni vers 25 mg 0-07 10-18 tablet by ity of tablet 00:00: 00:00 mouth in [place] 00 :00 the Medical morning. Branch lamoTRIgine 2021-07- No 25mg Take 1 Uni vers 25 mg 0-07 10-18 tablet by ity of tablet 00:00: 00:00 mouth in [place] 00 :00 the Medical morning. Branch lamoTRIgine 2021-2021- No 25mg Take 1 Uni vers 25 mg 0-07 10-18 tablet by ity of tablet 00:00: 00:00 mouth in [place] 00 :00 the Medical morning. Branch lamoTRIgine 2021-2- No 25mg Take 1 Uni vers 25 mg 0-07 10-18 tablet by ity of tablet 00:00: 00:00 mouth in [place] 00 :00 the Medical morning. Branch lamoTRIgine 2021-2- No 25mg Take 1 Uni vers 25 mg 0-07 10-18 tablet by ity of tablet 00:00: 00:00 mouth in [place] 00 :00 the Medical morning. Branch lamoTRIgine 2021-2- No 25mg Take 1 Uni vers 25 mg 0-07 10-18 tablet by ity of tablet 00:00: 00:00 mouth in [place] 00 :00 the Medical morning. Branch lamoTRIgine 2021-2- No 25mg Take 1 Uni vers 25 mg 0-07 10-18 tablet by ity of tablet 00:00: 00:00 mouth in [place] 00 :00 the Medical morning. Branch lamoTRIgine 2021-2021- No 25mg Take 1 Uni vers 25 mg 0-07 10-18 tablet by ity of tablet 00:00: 00:00 mouth in [place] 00 :00 the Medical morning. Branch lamoTRIgine 2021-2021- No 25mg Take 1 Uni vers 25 mg 0-07 10-18 tablet by ity of tablet 00:00: 00:00 mouth in [place] 00 :00 the Medical morning. Branch lamoTRIgine 2021-2021- No 25mg Take 1 Uni vers 25 mg 0-07 10-18 tablet by ity of tablet 00:00: 00:00 mouth in [place] 00 :00 the Medical morning. Branch lamoTRIgine 2021-2021- No 25mg Take 1 Uni vers 25 mg 0-07 10-18 tablet by ity of tablet 00:00: 00:00 mouth in [place] 00 :00 the Medical morning. Branch tamsulosin 2021-07- Yes [id number] .4mg Take 1 [facility] 0[facility]4 mg 24 0-07 10-15 capsule by [facility] hr capsule 00:00: 04:59 mouth in [place] 00 :00 the Medical morning Branch for 7 days. tamsulosin 2021-07- Yes [id number] .4mg Take 1 [facility] 0.4 mg 24 0-07 10-15 capsule by [facility] capsule 00:00: 04:59 mouth in [place] 00 :00 the Medical morning Branch for 7 days. tamsulosin 2021-07- Yes [id number] .4mg Take 1 [facility] 0.4 mg 24 0-07 10-15 capsule by [facility] capsule 00:00: 04:59 mouth in [place] 00 :00 the Medical morning Branch for 7 days. tamsulosin 2021-07- Yes [id number] .4mg Take 1 [facility] 0.4 mg 24 0-07 10-15 capsule by [facility] capsule 00:00: 04:59 mouth in [place] 00 :00 the Medical morning Branch for 7 days. tamsulosin 2021-07- Yes [id number] .4mg Take 1 [facility] 0.4 mg 24 0-07 10-15 capsule by [facility] capsule 00:00: 04:59 mouth in [place] 00 :00 the Medical morning Branch for 7 days. tamsulosin 2021-07- No [id number] .4mg Take 1 [facility] 0.4 mg 24 0-07 10-15 capsule by [facility] capsule 00:00: 04:59 mouth in [place] 00 :00 the Medical morning Branch for 7 days. tamsulosin 2021-07- No [id number] .4mg Take 1 [facility] 0.4 mg 24 0-07 10-15 capsule by [facility] hr capsule 00:00: 04:59 mouth in [place] 00 :00 the [facility] morning Branch for 7 days. tamsulosin 2021-07- No [id number] .4mg Take 1 [facility] 0.4 mg 24 0-07 10-15 capsule by [facility] hr capsule 00:00: 04:59 mouth in [place] 00 :00 the [facility] morning Branch for 7 days. tamsulosin 2021-07- No [id number] .4mg Take 1 [facility] 0.4 mg 24 0-07 10-15 capsule by [facility] hr capsule 00:00: 04:59 mouth in [place] 00 :00 the [facility] morning Branch for 7 days. tamsulosin 2021-07- No [id number] .4mg Take 1 [facility] 0.4 mg 24 0-07 10-15 capsule by [facility] hr capsule 00:00: 04:59 mouth in [place] 00 :00 the [facility] morning Branch for 7 days. tamsulosin 2021-07- No [id number] .4mg Take 1 [facility] 0.4 mg 24 0-07 10-15 capsule by [facility] hr capsule 00:00: 04:59 mouth in [place] 00 :00 the Medical morning Branch for 7 days. tamsulosin 2021-07- No [id number] .4mg Take 1 [facility] 0.4 mg 24 0-07 10-15 capsule by [facility] hr capsule 00:00: 04:59 mouth in [place] 00 :00 the Medical morning Branch for 7 days. tamsulosin 2021-07- No [id number] .4mg Take 1 [facility] 0.4 mg 24 0-07 10-15 capsule by [facility] hr capsule 00:00: 04:59 mouth in [place] 00 :00 the Medical morning Branch for 7 days. tamsulosin 2021-07- No [id number] .4mg Take 1 [facility] 0.4 mg 24 0-07 10-15 capsule by [facility] capsule 00:00: 04:59 mouth in [place] 00 :00 the Medical morning Branch for 7 days. tamsulosin 2021-07- No [id number] .4mg Take 1 [facility] 0.4 mg 24 0-07 10-15 capsule by [facility] hr capsule 00:00: 04:59 mouth in [place] 00 :00 the Medical morning Branch for 7 days. tamsulosin 2021-07- No [id number] .4mg Take 1 [facility] 0.4 mg 24 0-07 10-15 capsule by [facility] hr capsule 00:00: 04:59 mouth in [place] 00 :00 the [facility] morning Branch for 7 days. tamsulosin 2021-07- No [id number] .4mg Take 1 [facility] 0.4 mg 24 0-07 10-15 capsule by [facility] hr capsule 00:00: 04:59 mouth in [place] 00 :00 the [facility] morning Branch for 7 days. tamsulosin 2021-07- No [id number] .4mg Take 1 [facility] 0.4 mg 24 0-07 10-15 capsule by [facility] hr capsule 00:00: 04:59 mouth in [place] 00 :00 the [facility] morning Branch for 7 days. tamsulosin 2021-07- No [id number] .4mg Take 1 [facility] 0.4 mg 24 0-07 10-15 capsule by [facility] hr capsule 00:00: 04:59 mouth in [place] 00 :00 the Medical morning Branch for 7 days. tamsulosin 2021-07- No [id number] .4mg Take 1 [facility] 0.4 mg 24 0-07 10-15 capsule by [facility] hr capsule 00:00: 04:59 mouth in [place] 00 :00 the Medical morning Branch for 7 days. tamsulosin 2021-07- No [id number] .4mg Take 1 [facility] 0.4 mg 24 0-07 10-15 capsule by [facility] hr capsule 00:00: 04:59 [facility] morning Branch for 7 days. atomoxetine 2021-2021- No 40mg Take 1 [facility] vers 40 mg 0-07 10-13 capsule by [facility] of capsule 00:00: 00:00 mouth in [place] 00 :00 the Medical morning. [place] atomoxetine 2021-2021- No 40mg Take 1 [facility] vers 40 mg 0-07 10-13 capsule by [facility] of capsule 00:00: 00:00 mouth in [place] 00 :00 the Medical morning. [place] atomoxetine 2021-2021- No 40mg Take 1 [facility] vers 40 mg 0-07 10-13 capsule by [facility] of capsule 00:00: 00:00 mouth in [place] 00 :00 the Medical morning. [place] atomoxetine 2021-2021- No 40mg Take 1 [facility] vers 40 mg 0-07 10-13 capsule by [facility] of capsule 00:00: 00:00 mouth in [place] 00 :00 the Medical morning. [place] atomoxetine 2021-2021- No 40mg Take 1 [facility] vers 40 mg 0-07 10-13 capsule by [facility] of capsule 00:00: 00:00 mouth in [place] 00 :00 the Medical morning. [place] atomoxetine 2021-2021- No 40mg Take 1 [facility] vers 40 mg 0-07 10-13 capsule by [facility] of capsule 00:00: 00:00 mouth in [place] 00 :00 the Medical morning. [place] atomoxetine 2021-2021- No 40mg Take 1 [facility] vers 40 mg 0-07 10-13 capsule by [facility] of capsule 00:00: 00:00 mouth in [place] 00 :00 the Medical morning. [place] atomoxetine 2021-2021- No 40mg Take 1 [facility] vers 40 mg 0-07 10-13 capsule by [facility] of capsule 00:00: 00:00 mouth in [place] 00 :00 the Medical morning. [place] atomoxetine 2021-2021- No 40mg Take 1 [facility] vers 40 mg 0-07 10-13 capsule by [facility] of capsule 00:00: 00:00 mouth in [place] 00 :00 the Medical morning. [place] atomoxetine 2021-2- No 40mg Take 1 [facility] vers 40 mg 0-07 10-13 capsule by [facility] of capsule 00:00: 00:00 mouth in [place] 00 :00 the Medical morning. [place] atomoxetine 2021-07- No 40mg Take 1 [facility] vers 40 mg 0-07 10-13 capsule by [facility] of capsule 00:00: 00:00 mouth in [place] 00 :00 the Medical morning. [place] atomoxetine 2021-07- No 40mg Take 1 [facility] vers 40 mg 0-07 10-13 capsule by [facility] of capsule 00:00: 00:00 mouth in [place] 00 :00 the Medical morning. [place] atomoxetine 2021-07- No 40mg Take 1 [facility] vers 40 mg 0-07 10-13 capsule by [facility] of capsule 00:00: 00:00 mouth in [place] 00 :00 the Medical morning. [place] atomoxetine 2021-07- No 40mg Take 1 [facility] vers 40 mg 0-07 10-13 capsule by [facility] of capsule 00:00: 00:00 mouth in [place] 00 :00 the Medical morning. [place] atomoxetine 2021-07- No 40mg Take 1 [facility] vers 40 mg 0-07 10-13 capsule by [facility] of capsule 00:00: 00:00 mouth in [place] 00 :00 the Medical morning. [place] atomoxetine 2021-07- No 40mg Take 1 [facility] vers 40 mg 0-07 10-13 capsule by [facility] of capsule 00:00: 00:00 mouth in [place] 00 :00 the Medical morning. [place] atomoxetine 2021-07- No 40mg Take 1 [facility] vers 40 mg 0-07 10-13 capsule by [facility] of capsule 00:00: 00:00 mouth in [place] 00 :00 the Medical morning. [place] traZODone 2021-07 Yes 50mg 50 mg, [facility] (DESYREL) 0-06 Oral, QHS, ity of tablet 50 02:00: First dose [place] mg 00 on Mon04/06/22 at [place] 2100, Until Discontinu ed, Routine acetaminoph 2021-07 Yes [id number] 1000mg Take 2 [facility] en 500 mg 0-06 tablets by [facility] of tablet 00:00: mouth [place] 00 every 8 Medical (eight) Branch hours as needed for Pain. traZODone 2021-07 Yes 50mg Take 1 [facility] 50 mg 0-06 tablet by [facility] of tablet 00:00: mouth at [place] 00 bedtime. Medical Branch methocarbam 2021-07 Yes [id number] 500mg Take 1 [facility] oL 500 mg 0-06 tablet by [facility] o f tablet 00:00: mouth (four) Medical times Branch daily as needed (muscle spasms). ibuprofen 2021-07 Yes [id number] 600mg Take 1 [facility] 600 mg 0-06 tablet by [facility] of tablet 00:00: mouth [place] 00 every 6 Medical (six) Branch hours as needed for Pain (scale 4-6). acetaminoph 2021-07 Yes [id number] 1000mg Take 2 [facility] en 500 mg 0-06 tablets by [facility] of tablet 00:00: mouth [place] 00 every 8 Medical (eight) Branch hours as needed for Pain. traZODone 2021-07 Yes 50mg Take 1 [facility] 50 mg 0-06 tablet by [facility] of tablet 00:00: mouth at [place] 00 bedtime. Medical Branch methocarbam 2021-07 Yes [id number] 500mg Take 1 [facility] oL 500 mg 0-06 tablet by [facility] o f tablet 00:00: mouth (four) Medical times Branch daily as needed (muscle spasms). ibuprofen 2021-07 Yes [id number] 600mg Take 1 [facility] 600 mg 0-06 tablet by [facility] of tablet 00:00: mouth [place] 00 every 6 Medical (six) Branch hours as needed for Pain (scale 4-6). acetaminoph 2021-07 Yes [id number] 1000mg Take 2 [facility] en 500 mg 0-06 tablets by [facility] of tablet 00:00: mouth [place] 00 every 8 Medical (eight) Branch hours as needed for Pain. traZODone 2021-07 Yes 50mg Take 1 [facility] 50 mg 0-06 tablet by [facility] of tablet 00:00: mouth at [place] 00 bedtime. Medical Branch methocarbam 2021-07 Yes [id number] 500mg Take 1 [facility] oL 500 mg 0-06 tablet by [facility] o f tablet 00:00: mouth 00 (four) Medical times Branch daily as needed (muscle spasms). ibuprofen 2021-07 Yes [id number] 600mg Take 1 [facility] 600 mg 0-06 tablet by [facility] of tablet 00:00: mouth [place] 00 every 6 Medical (six) Branch hours as needed for Pain (scale 4-6). acetaminoph 2021-07 Yes [id number] 1000mg Take 2 [facility] en 500 mg 0-06 tablets by [facility] of tablet 00:00: mouth [place] 00 every 8 Medical (eight) Branch hours as needed for Pain. traZODone 2021-07 Yes 50mg Take 1 [facility] 50 mg 0-06 tablet by [facility] of tablet 00:00: mouth at [place] 00 bedtime. Medical Branch methocarbam 2021-07 Yes [id number] 500mg Take 1 [facility] oL 500 mg 0-06 tablet by [facility] o f tablet 00:00: mouth 4 [place] 00 (four) Medical times Branch daily as needed (muscle spasms). ibuprofen 2021-07 Yes [id number] 600mg Take 1 [facility] 600 mg 0-06 tablet by [facility] of tablet 00:00: mouth [place] 00 every 6 Medical (six) Branch hours as needed for Pain (scale 4-6). acetaminoph 2021-07 Yes [id number] 1000mg Take 2 [facility] en 500 mg 0-06 tablets by [facility] of tablet 00:00: mouth [place] 00 every 8 Medical (eight) Branch hours as needed for Pain. traZODone 2021-07 Yes 50mg Take 1 [facility] 50 mg 0-06 tablet by [facility] of tablet 00:00: mouth at [place] 00 bedtime. Medical Branch methocarbam 2021-07 Yes [id number] 500mg Take 1 [facility] oL 500 mg 0-06 tablet by [facility] o f tablet 00:00: mouth 4 00 (four) Medical times Branch daily as needed (muscle spasms). ibuprofen 2021-07 Yes [id number] 600mg Take 1 [facility] 600 mg 0-06 tablet by [facility] of tablet 00:00: mouth [place] 00 every 6 Medical (six) Branch hours as needed for Pain (scale 4-6). acetaminoph 2021-07 Yes [id number] 1000mg Take 2 [facility] en 500 mg 0-06 tablets by [facility] of tablet 00:00: mouth [place] 00 every 8 Medical (eight) Branch hours as needed for Pain. traZODone 2021-07 Yes 50mg Take 1 [facility] 50 mg 0-06 tablet by [facility] of tablet 00:00: mouth at [place] 00 bedtime. Medical Branch methocarbam 2021-07 Yes [id number] 500mg Take 1 [facility] oL 500 mg 0-06 tablet by [facility] o f tablet 00:00: mouth 4 [place] 00 (four) Medical times Branch daily as needed (muscle spasms). ibuprofen 2021-07 Yes [id number] 600mg Take 1 [facility] 600 mg 0-06 tablet by [facility] of tablet 00:00: mouth [place] 00 every 6 Medical (six) Branch hours as needed for Pain (scale 4-6). acetaminoph 2021-07 Yes [id number] 1000mg Take 2 [facility] en 500 mg 0-06 tablets by [facility] of tablet 00:00: mouth [place] 00 every 8 Medical (eight) Branch hours as needed for Pain. traZODone 2021-07 Yes 50mg Take 1 [facility] 50 mg 0-06 tablet by [facility] of tablet 00:00: mouth at [place] 00 bedtime. Medical Branch methocarbam 2021-07 Yes [id number] 500mg Take 1 [facility] oL 500 mg 0-06 tablet by [facility] o f tablet 00:00: mouth (four) Medical times Branch daily as needed (muscle spasms). ibuprofen 2021-07 Yes [id number] 600mg Take 1 [facility] 600 mg 0-06 tablet by [facility] of tablet 00:00: mouth [place] 00 every 6 Medical (six) Branch hours as needed for Pain (scale 4-6). acetaminoph 2021-07 Yes [id number] 1000mg Take 2 [facility] en 500 mg 0-06 tablets by [facility] of tablet 00:00: mouth [place] 00 every 8 Medical (eight) Branch hours as needed for Pain. traZODone 2021-07 Yes 50mg Take 1 [facility] 50 mg 0-06 tablet by [facility] of tablet 00:00: mouth at [place] 00 bedtime. Medical Branch methocarbam 2021-07 Yes [id number] 500mg Take 1 [facility] oL 500 mg 0-06 tablet by [facility] o f tablet 00:00: mouth 4 00 (four) Medical times Branch daily as needed (muscle spasms). ibuprofen 2021-07 Yes [id number] 600mg Take 1 [facility] 600 mg 0-06 tablet by [facility] of tablet 00:00: mouth [place] 00 every 6 Medical (six) Branch hours as needed for Pain (scale 4-6). acetaminoph 2021-07 Yes [id number] 1000mg Take 2 [facility] en 500 mg 0-06 tablets by [facility] of tablet 00:00: mouth [place] 00 every 8 Medical (eight) Branch hours as needed for Pain. traZODone 2021-07 Yes 50mg Take 1 [facility] 50 mg 0-06 tablet by [facility] of tablet 00:00: mouth at [place] 00 bedtime. Medical Branch methocarbam 2021-07 Yes [id number] 500mg Take 1 [facility] oL 500 mg 0-06 tablet by [facility]y o f tablet 00:00: mouth (four) Medical times Branch daily as needed (muscle spasms). ibuprofen 2021-07 Yes [id number] 600mg Take 1 [facility] 600 mg 0-06 tablet by [facility]y of tablet 00:00: mouth 00 every 6 Medical (six) Branch hours as needed for Pain (scale 4-6). acetaminoph 2021-07 Yes [id number] 1000mg Take 2 [facility] en 500 mg 0-06 tablets by [facility]y of tablet 00:00: mouth 00 every 8 Medical (eight) Branch hours as needed for Pain. traZODone 2021-07 Yes 50mg Take 1 [facility] 50 mg 0-06 tablet by [facility] of tablet 00:00: mouth at 00 bedtime. Medical Branch methocarbam 2021-07 Yes [id number] 500mg Take 1 [facility] oL 500 mg 0-06 tablet by ity o f tablet 00:00: mouth (four) Medical times Branch daily as needed (muscle spasms). ibuprofen 2021-07 Yes [id number] 600mg Take 1 [facility] 600 mg 0-06 tablet by [facility] of tablet 00:00: mouth 00 every 6 Medical (six) Branch hours as needed for Pain (scale 4-6). acetaminoph 2021-07 Yes [id number] 1000mg Take 2 [facility] en 500 mg 0-06 tablets by [facility]y of tablet 00:00: mouth [place] 00 every 8 Medical (eight) Branch hours as needed for Pain. traZODone 2021-07 Yes 50mg Take 1 [facility] 50 mg 0-06 tablet by [facility] of tablet 00:00: mouth at [place] 00 bedtime. Medical Branch methocarbam 2021-07 Yes [id number] 500mg Take 1 [facility] oL 500 mg 0-06 tablet by [facility]y o f tablet 00:00: mouth (four) Medical times Branch daily as needed (muscle spasms). ibuprofen 2021-07 Yes [id number] 600mg Take 1 [facility] 600 mg 0-06 tablet by [facility] of tablet 00:00: mouth [place] 00 every 6 Medical (six) Branch hours as needed for Pain (scale 4-6). acetaminoph 2021-07 Yes [id number] 1000mg Take 2 [facility] en 500 mg 0-06 tablets by [facility]y of tablet 00:00: mouth [place] 00 every 8 Medical (eight) Branch hours as needed for Pain. traZODone 2021-07 Yes 50mg Take 1 [facility] 50 mg 0-06 tablet by [facility] of tablet 00:00: mouth at [place] 00 bedtime. Medical Branch methocarbam 2021-07 Yes [id number] 500mg Take 1 [facility] oL 500 mg 0-06 tablet by ity o f tablet 00:00: mouth 4 [place] 00 (four) Medical times Branch daily as needed (muscle spasms). ibuprofen 2021-07 Yes [id number] 600mg Take 1 [facility] 600 mg 0-06 tablet by [facility]y of tablet 00:00: mouth [place] 00 every 6 Medical (six) Branch hours as needed for Pain (scale 4-6). acetaminoph 2021-07 Yes [id number] 1000mg Take 2 [facility] en 500 mg 0-06 tablets by [facility]y of tablet 00:00: mouth [place] 00 every 8 Medical (eight) Branch hours as needed for Pain. traZODone 2021-07 Yes 50mg Take 1 [facility] 50 mg 0-06 tablet by [facility]y of tablet 00:00: mouth at [place] 00 bedtime. Medical Branch methocarbam 2021-07 Yes [id number] 500mg Take 1 [facility] oL 500 mg 0-06 tablet by ity o f tablet 00:00: mouth 4 [place] 00 (four) Medical times Branch daily as needed (muscle spasms). ibuprofen 2021-07 Yes [id number] 600mg Take 1 [facility] 600 mg 0-06 tablet by [facility]y of tablet 00:00: mouth [place] 00 every 6 Medical (six) Branch hours as needed for Pain (scale 4-6). acetaminoph 2021-07 Yes [id number] 1000mg Take 2 [facility] en 500 mg 0-06 tablets by [facility]y of tablet 00:00: mouth [place] 00 every 8 Medical (eight) Branch hours as needed for Pain. traZODone 2021-07 Yes 50mg Take 1 [facility] 50 mg 0-06 tablet by [facility]y of tablet 00:00: mouth at [place] 00 bedtime. Medical Branch methocarbam 2021-07 Yes [id number] 500mg Take 1 [facility] oL 500 mg 0-06 tablet by ity o f tablet 00:00: mouth 4 00 (four) Medical times Branch daily as needed (muscle spasms). ibuprofen 2021-07 Yes [id number] 600mg Take 1 [facility] 600 mg 0-06 tablet by [facility]y of tablet 00:00: mouth [place] 00 every 6 Medical (six) Branch hours as needed for Pain (scale 4-6). acetaminoph 2021-07 Yes [id number] 1000mg Take 2 [facility] en 500 mg 0-06 tablets by ity of tablet 00:00: mouth [place] 00 every 8 Medical (eight) Branch hours as needed for Pain. traZODone 2021-07 Yes 50mg Take 1 [facility] 50 mg 0-06 tablet by [facility] of tablet 00:00: mouth at [place] 00 bedtime. Medical Branch methocarbam 2021-07 Yes [id number] 500mg Take 1 [facility] oL 500 mg 0-06 tablet by ity o f tablet 00:00: mouth (four) Medical times Branch daily as needed (muscle spasms). ibuprofen 2021-07 Yes [id number] 600mg Take 1 [facility] 600 mg 0-06 tablet by [facility] of tablet 00:00: mouth [place] 00 every 6 Medical (six) Branch hours as needed for Pain (scale 4-6). acetaminoph 2021-07 Yes [id number] 1000mg Take 2 [facility] en 500 mg 0-06 tablets by [facility] of tablet 00:00: mouth [place] 00 every 8 Medical (eight) Branch hours as needed for Pain. traZODone 2021-07 Yes 50mg Take 1 [facility] 50 mg 0-06 tablet by [facility] of tablet 00:00: mouth at [place] 00 bedtime. Medical Branch methocarbam 2021-07 Yes [id number] 500mg Take 1 [facility] oL 500 mg 0-06 tablet by [facility] o f tablet 00:00: mouth 4 00 (four) Medical times Branch daily as needed (muscle spasms). ibuprofen 2021-07 Yes [id number] 600mg Take 1 [facility] 600 mg 0-06 tablet by [facility] of tablet 00:00: mouth [place] 00 every 6 Medical (six) Branch hours as needed for Pain (scale 4-6). acetaminoph 2021-07 Yes [id number] 1000mg Take 2 [facility] en 500 mg 0-06 tablets by [facility] of tablet 00:00: mouth [place] 00 every 8 Medical (eight) Branch hours as needed for Pain. traZODone 2021-07 Yes 50mg Take 1 [facility] 50 mg 0-06 tablet by [facility] of tablet 00:00: mouth at [place] 00 bedtime. Medical Branch methocarbam 2021-07 Yes [id number] 500mg Take 1 [facility] oL 500 mg 0-06 tablet by [facility] o f tablet 00:00: mouth (four) Medical times Branch daily as needed (muscle spasms). ibuprofen 2021-07 Yes [id number] 600mg Take 1 [facility] 600 mg 0-06 tablet by [facility] of tablet 00:00: mouth [place] 00 every 6 Medical (six) Branch hours as needed for Pain (scale 4-6). acetaminoph 2021-07 Yes [id number] 1000mg Take 2 [facility] en 500 mg 0-06 tablets by [facility] of tablet 00:00: mouth [place] 00 every 8 Medical (eight) Branch hours as needed for Pain. traZODone 2021-07 Yes 50mg Take 1 [facility] 50 mg 0-06 tablet by [facility] of tablet 00:00: mouth at [place] 00 bedtime. Medical Branch methocarbam 2021-07 Yes [id number] 500mg Take 1 [facility] oL 500 mg 0-06 tablet by [facility] o f tablet 00:00: mouth (four) Medical times Branch daily as needed (muscle spasms). ibuprofen 2021-07 Yes [id number] 600mg Take 1 [facility] 600 mg 0-06 tablet by [facility] of tablet 00:00: mouth [place] 00 every 6 Medical (six) Branch hours as needed for Pain (scale 4-6). acetaminoph 2021-07 Yes [id number] 1000mg Take 2 [facility] en 500 mg 0-06 tablets by [facility] of tablet 00:00: mouth [place] 00 every 8 Medical (eight) Branch hours as needed for Pain. traZODone 2021-07 Yes 50mg Take 1 [facility] 50 mg 0-06 tablet by [facility] of tablet 00:00: mouth at [place] 00 bedtime. Medical Branch methocarbam 2021-07 Yes [id number] 500mg Take 1 [facility] oL 500 mg 0-06 tablet by [facility] o f tablet 00:00: mouth 4 (four) Medical times Branch daily as needed (muscle spasms). ibuprofen 2021-07 Yes [id number] 600mg Take 1 [facility] 600 mg 0-06 tablet by [facility] of tablet 00:00: mouth [place] 00 every 6 Medical (six) Branch hours as needed for Pain (scale 4-6). acetaminoph 2021-07 Yes [id number] 1000mg Take 2 [facility] en 500 mg 0-06 tablets by [facility] of tablet 00:00: mouth [place] 00 every 8 Medical (eight) Branch hours as needed for Pain. traZODone 2021-07 Yes 50mg Take 1 [facility] 50 mg 0-06 tablet by [facility] of tablet 00:00: mouth at [place] 00 bedtime. Medical Branch methocarbam 2021-07 Yes [id number] 500mg Take 1 [facility] oL 500 mg 0-06 tablet by [facility] o f tablet 00:00: mouth (four) Medical times Branch daily as needed (muscle spasms). ibuprofen 2021-07 Yes [id number] 600mg Take 1 [facility] 600 mg 0-06 tablet by [facility] of tablet 00:00: mouth [place] 00 every 6 Medical (six) Branch hours as needed for Pain (scale 4-6). acetaminoph 2021-07 Yes [id number] 1000mg Take 2 [facility] en 500 mg 0-06 tablets by [facility] of tablet 00:00: mouth [place] 00 every 8 Medical (eight) Branch hours as needed for Pain. traZODone 2021-07 Yes 50mg Take 1 [facility] 50 mg 0-06 tablet by [facility] of tablet 00:00: mouth at [place] 00 bedtime. Medical Branch methocarbam 2021-07 Yes [id number] 500mg Take 1 [facility] oL 500 mg 0-06 tablet by [facility] o f tablet 00:00: mouth (four) Medical times Branch daily as needed (muscle spasms). ibuprofen 2021-07 Yes [id number] 600mg Take 1 [facility] 600 mg 0-06 tablet by [facility] of tablet 00:00: mouth [place] 00 every 6 Medical (six) Branch hours as needed for Pain (scale 4-6). acetaminoph 2021-07 Yes [id number] 1000mg Take 2 [facility] en 500 mg 0-06 tablets by [facility] of tablet 00:00: mouth [place] 00 every 8 Medical (eight) Branch hours as needed for Pain. traZODone 2021-07 Yes 50mg Take 1 [facility] 50 mg 0-06 tablet by [facility] of tablet 00:00: mouth at [place] 00 bedtime. Medical Branch methocarbam 2021-07 Yes [id number] 500mg Take 1 [facility] oL 500 mg 0-06 tablet by [facility] o f tablet 00:00: mouth 4 [place] 00 (four) Medical times Branch daily as needed (muscle spasms). ibuprofen 2021-07 Yes [id number] 600mg Take 1 [facility] 600 mg 0-06 tablet by [facility] of tablet 00:00: mouth [place] 00 every 6 Medical (six) Branch hours as needed for Pain (scale 4-6). acetaminoph 2021-07 Yes [id number] 1000mg Take 2 [facility] en 500 mg 0-06 tablets by [facility] of tablet 00:00: mouth [place] 00 every 8 Medical (eight) Branch hours as needed for Pain. traZODone 2021-07 Yes 50mg Take 1 [facility] 50 mg 0-06 tablet by [facility] of tablet 00:00: mouth at [place] 00 bedtime. Medical Branch methocarbam 2021-07 Yes [id number] 500mg Take 1 [facility] oL 500 mg 0-06 tablet by [facility] o f tablet 00:00: mouth 4 00 (four) Medical times Branch daily as needed (muscle spasms). ibuprofen 2021-07 Yes [id number] 600mg Take 1 [facility] 600 mg 0-06 tablet by [facility] of tablet 00:00: mouth [place] 00 every 6 Medical (six) Branch hours as needed for Pain (scale 4-6). acetaminoph 2021-07 Yes [id number] 1000mg Take 2 [facility] en 500 mg 0-06 tablets by [facility] of tablet 00:00: mouth [place] 00 every 8 Medical (eight) Branch hours as needed for Pain. traZODone 2021-07 Yes 50mg Take 1 [facility] 50 mg 0-06 tablet by [facility] of tablet 00:00: mouth at [place] 00 bedtime. Medical Branch methocarbam 2021-07 Yes [id number] 500mg Take 1 [facility] oL 500 mg 0-06 tablet by [facility] o f tablet 00:00: mouth 4 00 (four) Medical times Branch daily as needed (muscle spasms). ibuprofen 2021-07 Yes [id number] 600mg Take 1 [facility] 600 mg 0-06 tablet by [facility] of tablet 00:00: mouth [place] 00 every 6 Medical (six) Branch hours as needed for Pain (scale 4-6). acetaminoph 2021-07 Yes [id number] 1000mg Take 2 [facility] en 500 mg 0-06 tablets by [facility] of tablet 00:00: mouth [place] 00 every 8 Medical (eight) Branch hours as needed for Pain. traZODone 2021-07 Yes 50mg Take 1 [facility] 50 mg 0-06 tablet by [facility] of tablet 00:00: mouth at [place] 00 bedtime. Medical Branch methocarbam 2021-07 Yes [id number] 500mg Take 1 [facility] oL 500 mg 0-06 tablet by [facility] o f tablet 00:00: mouth (four) Medical times Branch daily as needed (muscle spasms). ibuprofen 2021-07 Yes [id number] 600mg Take 1 [facility] 600 mg 0-06 tablet by [facility] of tablet 00:00: mouth [place] 00 every 6 Medical (six) Branch hours as needed for Pain (scale 4-6). acetaminoph 2021-07 Yes [id number] 1000mg Take 2 [facility] en 500 mg 0-06 tablets by [facility] of tablet 00:00: mouth [place] 00 every 8 Medical (eight) Branch hours as needed for Pain. traZODone 2021-07 Yes 50mg Take 1 [facility] 50 mg 0-06 tablet by [facility] of tablet 00:00: mouth at [place] 00 bedtime. Medical Branch methocarbam 2021-07 Yes [id number] 500mg Take 1 [facility] oL 500 mg 0-06 tablet by [facility] o f tablet 00:00: mouth 4 00 (four) Medical times Branch daily as needed (muscle spasms). ibuprofen 2021-07 Yes [id number] 600mg Take 1 [facility] 600 mg 0-06 tablet by [facility] of tablet 00:00: mouth [place] 00 every 6 Medical (six) Branch hours as needed for Pain (scale 4-6). acetaminoph 2021-07 Yes [id number] 1000mg Take 2 [facility] en 500 mg 0-06 tablets by [facility] of tablet 00:00: mouth [place] 00 every 8 Medical (eight) Branch hours as needed for Pain. traZODone 2021-07 Yes 50mg Take 1 Un[facility] s 50 mg 0-06 tablet by ity of tablet 00:00: mouth at [place] 00 bedtime. Medical Branch methocarbam 2021-07 Yes [id number] 500mg Take 1 Univers oL 500 mg 0-06 tablet by ity o f tablet 00:00: mouth (four) Medical times Branch daily as needed (muscle spasms). ibuprofen 2021-07 Yes [id number] 600mg Take 1 [facility] 600 mg 0-06 tablet by ity of tablet 00:00: mouth 00 every 6 Medical (six) Branch hours as needed for Pain (scale 4-6). acetaminoph 2021-07 Yes [id number] 1000mg Take 2 [facility] en 500 mg 0-06 tablets by ity of tablet 00:00: mouth 00 every 8 Medical (eight) Branch hours as needed for Pain. traZODone 2021-07 Yes 50mg Take 1 Un[facility] 50 mg 0-06 tablet by ity of tablet 00:00: mouth at 00 bedtime. Medical Branch methocarbam 2021-07 Yes [id number] 500mg Take 1 [facility] oL 500 mg 0-06 tablet by ity o f tablet 00:00: mouth (four) Medical times Branch daily as needed (muscle spasms). ibuprofen 2021-07 Yes [id number] 600mg Take 1 [facility] 600 mg 0-06 tablet by ity of tablet 00:00: mouth 00 every 6 Medical (six) Branch hours as needed for Pain (scale 4-6). acetaminoph 2021-07 Yes [id number] 1000mg Take 2 [facility] en 500 mg 0-06 tablets by ity of tablet 00:00: mouth [place] 00 every 8 Medical (eight) Branch hours as needed for Pain. traZODone 2021-07 Yes 50mg Take 1 Un[facility] 50 mg 0-06 tablet by ity of tablet 00:00: mouth at [place] 00 bedtime. Medical Branch methocarbam 2021-07 Yes [id number] 500mg Take 1 [facility] oL 500 mg 0-06 tablet by ity o f tablet 00:00: mouth (four) Medical times Branch daily as needed (muscle spasms). ibuprofen 2021-07 Yes [id number] 600mg Take 1 [facility] 600 mg 0-06 tablet by ity of tablet 00:00: mouth [place] 00 every 6 Medical (six) Branch hours as needed for Pain (scale 4-6). atomoxetine 2021-07 Yes 40mg 40 mg, Univ ers (STRATTERA) 0-05 Oral, ity of capsule 40 16:45: DAILY, [place] mg 00 First dose Medical on Mon Branch 04/06/22 at 1145, Until Discontinu ed, Routine
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
[...] Until Discontinu ed, Routine, Pain (scale 7-10)<b r>adjunct psychology faculty member approving Restricted medication : KEAGAN LUO celecoxib [...] 00 mon Medical 1,000 mg 04/06/22 at [facility] h 0800, Until Discontinu ed, Routine enoxaparin [...] mg 00 :08 First dose Medical on Mon04/05/22 at 0800, Until Discontinu ed, Routine acetaminoph 2021-07- No 650mg 650 mg, U nivers en 0-04 10-04 Oral, Q6H, ity of (TYLENOL) 05:00: 15:12 First dose [place] tablet 650 00 :14 on Mon Medical mg 04/05/22 at Branch 0000, Until Discontinu ed, Routine methocarbam 2021-07- No 500mg 500 mg, U nivers oL [...] [place] mg 51 :08 Starting Medical on Mon04/04/22 at 1822, Until Mon04/05/22 at 0914, Routine, Pain (scale 7-10) HYDROcodone 2021-07 No 1{tbl} 1 tablet, Univers -acetaminop 0-03 10-04 Oral, ity of hen (NORCO 23:22: 14:14 Q6HPRN, [place] 5) 5-325 mg 51 :08 Starting Medi [place] tablet 1 on Mon [place] tablet 04/04/22 at 1822, Until Mon04/05/22 at 0914, Routine, Pain (scale 4-6) FENTanyl PF 2021-07 No 50ug 50 mcg, [facility] [place] (SUBLIMAZE 0-03 10-03 Slow IV ity o f (PF)) 22:00: 21:05 Push, [place] injection 00 :00 ONCE, 1 Medical 50 mcg dose, On Mon04/04/22 at 1700, Routine FENTanyl PF 2021-07 No 50ug 50 mcg, Un [place] (SUBLIMAZE 0-03 10-03 Slow IV ity o f (PF)) 20:30: 19:32 Push, [place] injection 00 :00 ONCE, 1 Medical 50 mcg dose, On [place] Mon04/04/22 at 1530, Routine ondansetron 2021-07 No 4mg 4 mg, Slow Univers (ZOFRAN 0- IV [place], ity of (PF)) 19:45: 19:32 ONCE, 1 [place] injection 4 00 :00 dose, On Medi [place] mg Mon Branch 04/04/22 at 1445, ARLEN iopamidol 2021-07- No [id number] 80mL 80 mL, Univers (ISOVUE 004-04 Intravenou [...] 03/31/22 at 2315, ARLEN ARIPiprazol 0 Yes [id number] 300mg 300 mg by Univers e (ABILIFY 9-15 [facility] ity of [facility]) 00:00: lar route [place] 300 mg sers 00 once every Me dical month. Branch ARIPiprazol 0 Yes 300mg 300 mg by Univers e (ABILIFY 9-15 [facility] ity of [facility]) 00:00: lar route [place] 300 mg sers 00 once every Me dical month. Branch ARIPiprazol 2021-0 Yes [id number] 300mg 300 mg by Univers e (ABILIFY 9-15 [facility] ity of [facility]) 00:00: lar route [place] 300 mg sers 00 once every Me dical month. Branch ARIPiprazol 2022-0 Yes 300mg 300 mg by Univers e (ABILIFY 9-15 [facility] ity of [facility]) 00:00: lar route [place] 300 mg sers 00 once every Me dical month. Branch ARIPiprazol 2-0 Yes [id number] 300mg 300 mg by Univers e (ABILIFY 9-15 [facility]cu ity of [facility]) 00:00: lar route [place] 300 mg sers 00 once every Me dical month. Branch ARIPiprazol 2-0 Yes 300mg 300 mg by Univers e (ABILIFY 9-15 [facility]cu ity of [facility]) 00:00: lar route [place] 300 mg sers 00 once every Me dical month. Branch ARIPiprazol 2-0 Yes [id number] 300mg 300 mg by Univers e (ABILIFY 9-15 [facility] ity of [facility]) 00:00: lar route [place] 300 mg sers 00 once every Me dical month. Branch ARIPiprazol 2-0 Yes 300mg 300 mg by Univers e (ABILIFY 9-15 [facility]y [facility]) 00:00: lar route [place] 300 mg sers 00 once every Me dical month. Branch ARIPiprazol 2-0 Yes [id number] 300mg 300 mg by Univers e (ABILIFY 9-15 [facility] ity of [facility]) 00:00: lar route [place] 300 mg sers 00 once every Me dical month. Branch ARIPiprazol 2-0 Yes 300mg 300 mg by Univers e (ABILIFY 9-15 [facility] ity [facility]) 00:00: lar route [place] 300 mg sers 00 once every Me dical month. Branch ARIPiprazol 2022-0 Yes [id number] 300mg 300 mg by Univers e (ABILIFY 9-15 [facility] ity of [facility]) 00:00: lar route [place] 300 mg sers 00 once every Me dical month. Branch ARIPiprazol 2022-0 Yes 300mg 300 mg by Univers e (ABILIFY 9-15 [facility]cu ity of [facility]) 00:00: lar route [place] 300 mg sers 00 once every Me dical month. Branch ARIPiprazol 2022-0 Yes [id number] 300mg 300 mg by Univers e (ABILIFY 9-15 [facility] ity [facility]) 00:00: lar route [place] 300 mg sers 00 once every Me dical month. Branch ARIPiprazol 2021-0 Yes 300mg 300 mg by Univers e (ABILIFY 9-15 [facility] ity of [facility]) 00:00: lar route [place] 300 mg sers 00 once every Me dical month. Branch ARIPiprazol 2021-0 Yes [id number] 300mg 300 mg by Univers e (ABILIFY 9-15 [facility] ity of [facility]) 00:00: lar route [place] 300 mg sers 00 once every Me dical month. Branch ARIPiprazol 2021-0 Yes [id number] 300mg 300 mg by Univers e (ABILIFY 9-15 [facility]y of [facility]) 00:00: lar route [place] 300 mg sers 00 once every Me dical month. Branch ARIPiprazol 2021-0 Yes [id number] 300mg 300 mg by Univers e (ABILIFY 9-15 [facility] ity of [facility]) 00:00: lar route [place] 300 mg sers 00 once every Me dical month. Branch ARIPiprazol 2021-0 Yes [id number] 300mg 300 mg by Univers e (ABILIFY 9-15 [facility] ity of [facility]) 00:00: lar route [place] 300 mg sers 00 once every Me dical month. Branch ARIPiprazol 2021-0 Yes [id number] 300mg 300 mg by Univers e (ABILIFY 9-15 Intr[facility]cu ity of [facility]) 00:00: lar route [place] 300 mg sers 00 once every Me dical month. Branch ARIPiprazol 2-0 Yes [id number] 300mg 300 mg by Univers e (ABILIFY [...] e (ABILIFY 03-17 [facility]) 00:00: 00:00 lar route [place] 300 mg sers 00 :00 once every Me dical month. Branch ARIPiprazol 2021-0 2- No 300mg 300 mg by Univers e (ABILIFY 03-17 [facility] it y of [facility]) 00:00: 00:00 lar route [place] 300 mg sers 00 :00 once every Me dical month. Branch ARIPiprazol 2021-0 2- No 300mg 300 mg by Univers e (ABILIFY 03-17 [facility] of [facility]) 00:00: 00:00 lar route [place] 300 mg sers 00 :00 once every Me dical month. Branch ARIPiprazol 2021-0 2- No 300mg 300 mg by Univers e (ABILIFY 03-17 [facility]) 00:00: 00:00 lar route [place] 300 mg sers 00 :00 once every Me dical month. Branch ARIPiprazol 2021-0 2- No 300mg 300 mg by Univers e (ABILIFY 03-17 [facility]) 00:00: 00:00 lar route [place] 300 mg sers 00 :00 once every Me dical month. Branch ARIPiprazol 2021-0 2022- No 300mg 300 mg by Univers e (ABILIFY 03-17 [facility] 00:[facility]: 00:00 lar route [place] 300 mg sers 00 :00 once every Me dical month. Branch ARIPiprazol 2-0 2022- No 300mg 300 mg by Univers e (ABILIFY 03-17 [facility]) 00:00: 00:00 lar route [place] 300 [...] Univers e (ABILIFY 03-17 Intramuscu it y [facility]) 00:00: 00:00 lar route [place] 300 mg sers 00 :00 once every Me dical month. Branch ARIPiprazol 2021- No 300mg 300 mg by Univers e (ABILIFY 03-17 Intramuscu it y [facility]) 00:00: 00:00 lar route [place] 300 mg sers 00 :00 once every Me dical month. Branch ARIPiprazol 2021- Yes [id number] 10mg Take 1 U nivers e 10 mg 9-08 10-09 tablet by ity of tablet 00:00: 04:59 mouth in [place] 00 :00 the Medical morning Branch for 30 days. ARIPiprazol 2021- Yes [id number] 10mg Take 1 U nivers e 10 mg 9-08 10-09 tablet by ity of tablet 00:00: 04:59 mouth in [place] 00 :00 the [facility] morning Branch for 30 days. ARIPiprazol 2021- Yes [id number] 10mg Take 1 U nivers e 10 mg 9-08 10-09 tablet by ity of tablet 00:00: 04:59 mouth in [place] 00 :00 the [facility] morning Branch for 30 days. ARIPiprazol 2021- Yes [id number] 10mg Take 1 U nivers e 10 mg 9-08 10-09 tablet by ity of tablet 00:00: 04:59 mouth in [place] 00 :00 the [facility] morning Branch for 30 days. ARIPiprazol 2021- Yes [id number] 10mg Take 1 U nivers e 10 mg 9-08 10-09 tablet by ity of tablet 00:00: 04:59 mouth in [place] 00 :00 the [facility] morning Branch for 30 days. ARIPiprazol 2021- Yes [id number] 10mg Take 1 U nivers e 10 mg 9-08 10-09 tablet by ity of tablet 00:00: 04:59 mouth in [place] 00 :00 the [facility] for 30 days. ARIPiprazol 2021- Yes [id number] 10mg Take 1 U nivers e 10 mg 9-08 10-09 tablet by ity of tablet 00:00: 04:59 mouth in [place] 00 :00 the [facility] for 30 days. ARIPiprazol 2021- Yes [id number] 10mg Take 1 U nivers e 10 mg 9-08 10-09 tablet by ity of tablet 00:00: 04:59 mouth in [place] 00 :00 [facility] for 30 days. ARIPiprazol 2021- Yes [id number] 10mg Take 1 U nivers e 10 mg 9-08 10-09 tablet by ity of tablet 00:00: 04:59 mouth in [place] 00 :00 [facility] for 30 days. ARIPiprazol 2021- Yes [id number] 10mg Take 1 U nivers e 10 mg 9-08 10-09 tablet by ity of tablet 00:00: 04:59 mouth in [place] 00 :00 [facility] for 30 days. ARIPiprazol 2021- Yes [id number] 10mg Take 1 U nivers e 10 mg 9-08 10-09 tablet by ity of tablet 00:00: 04:59 mouth in [place] 00 :00 [facility] for 30 days. ARIPiprazol 2021- No [id number] 10mg Take 1 U nivers e 10 mg 9-08 10-09 tablet by ity of tablet 00:00: 04:59 mouth in [place] 00 :00 [facility] for 30 days. ARIPiprazol 2021- No [id number] 10mg Take 1 U nivers e 10 mg 9-08 10-09 tablet by ity of tablet 00:00: 04:59 mouth in [place] 00 :00 [facility] for 30 days. ARIPiprazol 2- No [id number] 10mg Take 1 U nivers e 10 mg 9-08 10-09 tablet by ity of tablet 00:00: 04:59 mouth in [place] 00 :00 [facility] for 30 days. ARIPiprazol 2021- No [id number] 10mg Take 1 U nivers e 10 mg 9-08 10-09 tablet by ity of tablet 00:00: 04:59 mouth in [place] 00 :00 the [facility] morning [place] for 30 days. ARIPiprazol 2021- No [id number] 10mg Take 1 U nivers e 10 mg 9-08 10-09 tablet by ity of tablet 00:00: 04:59 mouth in [place] 00 :00 the [facility] for 30 days. ARIPiprazol 2021- No [id number] 10mg Take 1 U nivers e 10 mg 9-08 10-09 tablet by ity of tablet 00:00: 04:59 mouth in [place] 00 :00 the [facility] for 30 days. ARIPiprazol 2021- No [id number] 10mg Take 1 U nivers e 10 mg 9-08 10-09 tablet by ity of tablet 00:00: 04:59 mouth in [place] 00 :00 the [facility] for 30 days. ARIPiprazol 2021- No [id number] 10mg Take 1 U nivers e 10 mg 9-08 10-09 tablet by ity of tablet 00:00: 04:59 mouth in [place] 00 :00 the [facility] for 30 days. ARIPiprazol 2021- No [id number] 10mg Take 1 U nivers e 10 mg 9-08 10-09 tablet by ity of tablet 00:00: 04:59 mouth in [place] 00 :00 the [facility] morning [place] for 30 days. ARIPiprazol 2021- No [id number] 10mg Take 1 U nivers e 10 mg 9-08 10-09 tablet by ity of tablet 00:00: 04:59 mouth in [place] 00 :00 the [facility] for 30 days. ARIPiprazol 2021-2021- No [id number] 10mg Take 1 U nivers e 10 mg 9-08 10-09 tablet by ity of tablet 00:00: 04:59 mouth in [place] 00 :00 the [facility] for 30 days. ARIPiprazol 2021- No [id number] 10mg Take 1 U nivers e 10 mg 9-08 10-09 tablet by ity of tablet 00:00: 04:59 mouth in [place] 00 :00 the Medical morning [place] for 30 days. ARIPiprazol 2021- No [id number] 10mg Take 1 U nivers e 10 mg 9-08 10-09 tablet by ity of tablet 00:00: 04:59 mouth in [place] 00 :00 the [facility] for 30 days. ARIPiprazol 2021- No [id number] 10mg Take 1 U nivers e 10 mg 9-08 10-09 tablet by ity of tablet 00:00: 04:59 mouth in [place] 00 :00 the [facility] for 30 days. ARIPiprazol 2021- No [id number] 10mg Take 1 U nivers e 10 mg 9-08 10-09 tablet by ity of tablet 00:00: 04:59 mouth in [place] 00 :00 the [facility] for 30 days. ARIPiprazol 2021- No [id number] 10mg Take 1 U nivers e 10 mg 9-08 10-09 tablet by ity of tablet 00:00: 04:59 mouth in [place] 00 :00 the [facility] for 30 days. ARIPiprazol 2021- No [id number] 10mg Take 1 U nivers e 10 mg 9-08 10-09 tablet by ity of tablet 00:00: 04:59 mouth in [place] 00 :00 the [facility] for 30 days. ARIPiprazol 2021- Yes [id number] 300mg 300 mg by Univers e (03-09 [facility] y of [facility]) 00:00: 05:59 lar route [place] 300 mg sers 00 :00 once every Me dical month for Branch 90 days. ARIPiprazol 2021- No [id number] 300mg 300 mg by Univers e (LI03-09 [facility] it y of [facility]) 00:00: 00:00 lar route [place] 300 mg sers 00 :00 once every Me dical month for Branch 90 days. ARIPiprazol 2021- No [id number] 300mg 300 mg by Univers e (LI03-09 [facility] it y of [facility]) 00:00: 00:00 lar route [place] 300 mg sers 00 :00 once every Me dical month for Branch 90 days. ARIPiprazol 2021-2- No [id number] 300mg 300 mg by Univers e (ABILIY 03-09 [facility]cu it y of [facility]) 00:00: 00:00 lar route [place] 300 mg sers 00 :00 once every Me dical month for Branch 90 days. ARIPiprazol 2021-2021- No [id number] 300mg 300 mg by Univers e (ABILI 03-09 [facility] it y of [facility]) 00:00: 00:00 lar route [place] 300 mg sers 00 :00 once every Me dical month for Branch 90 days. ARIPiprazol 2021-2021- No [id number] 300mg 300 [facility]) 00:00: 00:00 lar route [place] 300 mg sers 00 :00 once every Me dical month for Branch 90 days. QUEtiapine 2021-2021- No [id number] 50mg Take 1 [facility] [place] 50 mg 7-18 -08 tablet by ity of tablet 00:00: 00:00 mouth in [place] 00 :00 the Medical morning Branch and 1 tablet in the evening. Do all this for 60 days. QUEtiapine 2021-2- No [id number] 50mg Take 1 [facility] [place] 50 mg 7-18 -08 tablet by ity of tablet 00:00: 00:00 mouth in [place] 00 :00 the Medical morning Branch and 1 tablet in the evening. Do all this for 60 days. QUEtiapine 2021-0 2- No [id number] 50mg Take 1 [facility] [place] 50 mg 7-18 -08 tablet by ity of tablet 00:00: 00:00 mouth in [place] 00 :00 the Medical morning Branch and 1 tablet in the evening. Do all this for 60 days. QUEtiapine 2021-0 2- No [id number] 50mg Take 1 [facility] [place] 50 mg 7-18 -08 tablet by ity of tablet 00:00: 00:00 mouth in [place] 00 :00 the Medical morning Branch and 1 tablet in the evening. Do all this for 60 days. QUEtiapine 2021- No [id number] 50mg Take 1 [facility] [place] 50 mg 01-17 tablet by ity of tablet 00:00: 00:00 mouth in [place] 00 :00 the Medical morning Branch and 1 tablet in the evening. Do all this for 60 days. lithium 2021- No [id number] 300mg Take 1 U nivers carbonate 12-07 tablet by ity of CR 300 mg 00:00: 04:59 mouth at [place] tablet 00 :00 bedtime Medical for 90 Branch days. lithium 2021- No [id number] 450mg Take 1 U nivers carbonate 12-07 tablet by ity of CR 450 mg 00:00: 04:59 mouth [place] SR tablet 00 :00 every Medical morning Branch for 90 days. lithium No [id number] 300mg Take 1 U nivers carbonate 12-07 tablet by ity of CR 300 mg 00:00: 04:59 mouth at [place] tablet 00 :00 bedtime Medical for 90 Branch days. lithium 2021- No [id number] 450mg Take 1 U nivers carbonate 12-07 tablet by ity of CR 450 mg 00:00: 04:59 mouth [place] SR tablet 00 :00 every Medical morning Branch for 90 days. lithium 2021- No [id number] 300mg Take 1 U nivers carbonate 12-07 tablet by ity of CR 300 mg 00:00: 04:59 mouth at [place] tablet 00 :00 bedtime Medical for 90 Branch days. lithium 2021- No [id number] 450mg Take 1 U nivers carbonate 12-07 tablet by ity of CR 450 mg 00:00: 04:59 mouth [place] SR tablet 00 :00 every Medical morning Branch for 90 days. lithium 2021- No [id number] 300mg Take 1 U nivers carbonate 12-07 tablet by ity of CR 300 mg 00:00: 04:59 mouth at [place] SR tablet 00 :00 bedtime Medical for 90 Branch days. lithium 2021- No [id number] 450mg Take 1 U nivers carbonate 12-07 tablet by ity of CR 450 mg 00:00: 04:59 mouth [place] SR tablet 00 :00 every Medical morning Branch for 90 days. lithium 2021- No [id number] 300mg Take 1 U nivers carbonate 12-07 tablet by ity of CR 300 mg 00:00: 04:59 mouth at [place] SR tablet 00 :00 bedtime Medical for 90 Branch days. lithium 2021- No [id number] 450mg Take 1 U nivers carbonate 12-07 tablet by ity of CR 450 mg 00:00: 04:59 mouth [place] SR tablet 00 :00 every Medical morning Branch for 90 days. miSOPROStoL Yes [id number] 200ug Take 1 Univers 200 mcg 4-29 tablet by ity of tablet 00:00: mouth SEE-INSTRU Medical CTIONS. Branch Take one tab the night before and one tab the morning of procedure miSOPROStoL Yes [id number] 200ug Take 1 [facility] 200 mcg 4-29 tablet by ity of tablet 00:00: mouth SEE-INSTRU Medical CTIONS. Branch Take one tab the night before and one tab the morning of procedure miSOPROStoL Yes [id number] 200ug Take 1 Univers 200 mcg 4-29 tablet by ity of tablet 00:00: mouth SEE-INSTRU Medical CTIONS. Branch Take one tab the night before and one tab the morning of procedure miSOPROStoL Yes [id number] 200ug Take 1 [facility] 200 mcg 4-29 tablet by ity of tablet 00:00: mouth SEE-INSTRU Medical CTIONS. Branch Take one tab the night before and one tab the morning of procedure miSOPROStoL Yes [id number] 200ug Take 1 [facility] 200 mcg 4-29 tablet by ity of tablet 00:00: mouth SEE-INSTRU Medical CTIONS. Branch Take one tab the night before and one tab the morning of procedure miSOPROStoL Yes [id number] 200ug Take 1 [facility] 200 mcg 4-29 tablet by ity of tablet 00:00: mouth SEE-INSTRU Medical CTIONS. Branch Take one tab the night before and one tab the morning of procedure miSOPROStoL Yes [id number] 200ug Take 1 Univers 200 mcg 4-29 tablet by ity of tablet 00:00: [facility] SEE-INSTRU Medical CTIONS. Branch Take one tab the night before and one tab the morning of procedure miSOPROStoL Yes [id number] 200ug Take 1 Univers 200 mcg 4-29 tablet by ity of tablet 00:00: [facility] SEE-INSTRU Medical CTIONS. Branch Take one tab the night before and one tab the morning of procedure miSOPROStoL Yes [id number] 200ug Take 1 Univers 200 mcg 4-29 tablet by ity of tablet 00:00: [facility] SEE-INSTRU Medical CTIONS. Branch Take one tab the night before and one tab the morning of procedure miSOPROStoL 2021- No [id number] 200ug Take 1 Univers 200 mcg 4-29 10-06 tablet by ity of tablet 00:00: 00:00 [facility] 00 : SEE-INSTRU Medical CTIONS. Branch Take one tab the night before and one tab the morning of procedure miSOPROStoL 2021- No [id number] 200ug Take 1 Univers 200 mcg 4-29 10-06 tablet by ity of tablet 00:00: 00:00 [facility] 00 : SEE-INSTRU Medical CTIONS. Branch Take one tab the night before and one tab the morning of procedure miSOPROStoL 2021- No [id number] 200ug Take 1 Univers 200 mcg 4-29 10-06 tablet by ity of tablet 00:00: 00:00 [facility] 00 : SEE-INSTRU Medical CTIONS. Branch Take one tab the night before and one tab the morning of procedure miSOPROStoL 2021- No [id number] 200ug Take 1 Univers 200 mcg 4-29 10-06 tablet by ity of tablet 00:00: 00:00 [facility] 00 : SEE-INSTRU Medical CTIONS. Branch Take one tab the night before and one tab the morning of procedure miSOPROStoL 2021- No [id number] 200ug Take 1 Univers 200 mcg 4-29 10-06 tablet by ity of tablet 00:00: 00:00 [facility] 00 :00 SEE-INSTRU Medical CTIONS. Branch Take one tab the night before and one tab the morning of procedure miSOPROStoL 2021- No [id number] 200ug Take 1 [facility] 200 mcg 4-29 10-06 tablet by ity of tablet 00:00: 00:00 mouth [place] 00 :00 SEE-INSTRU Medical CTIONS. Branch Take one tab the night before and one tab the morning of procedure miSOPROStoL 2021- No [id number] 200ug Take 1 [facility] 200 mcg 4-29 10-06 tablet by ity of tablet 00:00: 00:00 mouth [place] 00 :00 SEE-INSTRU Medical CTIONS. Branch Take one tab the night before and one tab the morning of procedure miSOPROStoL 2021- No [id number] 200ug Take 1 [facility] 200 mcg 4-29 10-06 tablet by ity of tablet 00:00: 00:00 mouth [place] 00 :00 SEE-INSTRU Medical CTIONS. Branch Take one tab the night before and one tab the morning of procedure miSOPROStoL 2021- No [id number] 200ug Take 1 [facility] 200 mcg 4-29 10-06 tablet by ity of tablet 00:00: 00:00 mouth [place] 00 :00 SEE-INSTRU Medical CTIONS. Branch Take one tab the night before and one tab the morning of procedure miSOPROStoL 2021- No [id number] 200ug Take 1 [facility] 200 mcg 4-29 10-06 tablet by ity of tablet 00:00: 00:00 [facility] 00 :00 SEE-INSTRU Medical CTIONS. Branch Take one tab the night before and one tab the morning of procedure miSOPROStoL 2021- No [id number] 200ug Take 1 Univers 200 mcg 4-29 10-06 tablet by ity of tablet 00:00: 00:00 mouth [place] 00 :00 SEE-INSTRU Medical CTIONS. Branch Take one tab the night before and one tab the morning of procedure miSOPROStoL 2021-2021- No [id number] 200ug Take 1 [facility] 200 mcg 4-29 10-06 tablet by ity of tablet 00:00: 00:00 mouth [place] 00 :00 SEE-INSTRU Medical CTIONS. Branch Take one tab the night before and one tab the morning of procedure miSOPROStoL 2021- No [id number] 200ug Take 1 [facility] 200 mcg 4-29 10-06 tablet by ity of tablet 00:00: 00:00 mouth [place] 00 :00 SEE-INSTRU Medical CTIONS. Branch Take one tab the night before and one tab the morning of procedure miSOPROStoL 2021- No [id number] 200ug Take 1 [facility] 200 mcg 4-29 10-06 tablet by ity of tablet 00:00: 00:00 [facility] [place] 00 :00 SEE-INSTRU Medical CTIONS. Branch Take one tab the night before and one tab the morning of procedure miSOPROStoL 2021- No [id number] 200ug Take 1 [facility] 200 mcg 4-29 10-06 tablet by ity of tablet 00:00: 00:00 [facility] [place] 00 :00 SEE-INSTRU Medical CTIONS. Branch Take one tab the night before and one tab the morning of procedure miSOPROStoL 2021- No [id number] 200ug Take 1 [facility] 200 mcg 4-29 10-06 tablet by ity of tablet 00:00: 00:00 [facility] 00 :00 SEE-INSTRU Medical CTIONS. Branch Take one tab the night before and one tab the morning of procedure miSOPROStoL 2021- No [id number] 200ug Take 1 [facility] 200 mcg 4-29 10-06 tablet by ity of tablet 00:00: 00:00 [facility] 00 :00 SEE-INSTRU Medical CTIONS. Branch Take one tab the night before and one tab the morning of procedure miSOPROStoL 2021- No [id number] 200ug Take 1 [facility] 200 mcg 4-29 10-06 tablet by ity of tablet 00:00: 00:00 [facility] 00 :00 SEE-INSTRU Medical CTIONS. Branch Take one tab the night before and one tab the morning of procedure Immunizations Ordered Immunization Filled Immunization Date Status Commen ts Source Name Name SARS-COV-2 COVID-2022-03-17 Completed [facility] MIKE-SUCROSE VACCINE 00:00:00 [facility] 12 YRS+, BIVALENT Branch 0.3ML, IM, (PFIZER ARITA TOP BOOSTER) SARS-COV-2 COVID-19 2022-03-17 Completed [facility] of MIKE-SUCROSE VACCINE 00:00:00 [facility] 12 YRS+, BIVALENT Branch 0.3ML, IM, (PFIZER ARITA TOP BOOSTER) SARS-COV-2 COVID-19 2022-03-17 Completed [facility] of MIKE-SUCROSE VACCINE 00:00:00 [facility] 12 YRS+, BIVALENT Branch 0.3ML, IM, (PFIZER ARITA TOP BOOSTER) SARS-COV-2 COVID-19 2022-03-17 Completed [facility] of MIKE-SUCROSE VACCINE 00:00:00 [facility] 12 YRS+, BIVALENT Branch 0.3ML, IM, (PFIZER ARITA TOP BOOSTER) SARS-COV-2 COVID-19 2022-03-17 Completed [facility] of MIKE-SUCROSE VACCINE 00:00:00 [facility] 12 YRS+, BIVALENT Branch 0.3ML, IM, (PFIZER ARITA TOP BOOSTER) SARS-COV-2 COVID-19 2022-03-17 Completed [facility] of MIKE-SUCROSE VACCINE 00:00:00 [facility] 12 YRS+, BIVALENT Branch 0.3ML, IM, (PFIZER ARITA TOP BOOSTER) SARS-COV-2 COVID-19 2022-03-17 Completed [facility] of MIKE-SUCROSE VACCINE 00:00:00 [facility] 12 YRS+, BIVALENT Branch 0.3ML, IM, (PFIZER ARITA TOP BOOSTER) SARS-COV-2 COVID-19 2022-03-17 Completed [facility] of MIKE-SUCROSE VACCINE 00:00:00 [facility] 12 YRS+, BIVALENT Branch 0.3ML, IM, (PFIZER ARITA TOP BOOSTER) SARS-COV-2 COVID-19 2022-03-17 Completed [facility] of MIKE-SUCROSE VACCINE 00:00:00 [facility] 12 YRS+, BIVALENT Branch 0.3ML, IM, (PFIZER ARITA TOP BOOSTER) SARS-COV-2 COVID-19 2022-03-17 Completed [facility] of MIKE-SUCROSE VACCINE 00:00:00 [facility] 12 YRS+, BIVALENT Branch 0.3ML, IM, (PFIZER ARITA TOP BOOSTER) SARS-COV-2 COVID-19 2022-03-17 Completed [facility] of MIKE-SUCROSE VACCINE 00:00:00 [facility] 12 YRS+, BIVALENT Branch 0.3ML, IM, (PFIZER ARITA TOP BOOSTER) SARS-COV-2 COVID-19 2022-03-17 Completed [facility] of MIKE-SUCROSE VACCINE 00:00:00 [facility] 12 YRS+, BIVALENT Branch 0.3ML, IM, (PFIZER ARITA TOP BOOSTER) SARS-COV-2 COVID-19 2022-03-17 Completed [facility] of MIKE-SUCROSE VACCINE 00:00:00 [facility] 12 YRS+, BIVALENT Branch 0.3ML, IM, (PFIZER ARITA TOP BOOSTER) SARS-COV-2 COVID-19 2022-03-17 Completed [facility] rsity of MIKE-SUCROSE VACCINE 00:00:00 [facility] 12 YRS+, BIVALENT Branch 0.3ML, IM, (PFIZER ARITA TOP BOOSTER) SARS-COV-2 COVID-19 2022-03-17 Completed [facility] of MIKE-SUCROSE VACCINE 00:00:00 [facility] 12 YRS+, BIVALENT Branch 0.3ML, IM, (PFIZER ARITA TOP BOOSTER) SARS-COV-2 COVID-19 2022-03-17 Completed [facility] of MIKE-SUCROSE VACCINE 00:00:00 [facility] 12 YRS+, BIVALENT Branch 0.3ML, IM, (PFIZER ARITA TOP BOOSTER) SARS-COV-2 COVID-19 2022-03-17 Completed [facility]ity of MIKE-SUCROSE VACCINE 00:00:00 [facility] 12 YRS+, BIVALENT Branch 0.3ML, IM, (PFIZER ARITA TOP BOOSTER) SARS-COV-2 COVID-19 2022-03-17 Completed [facility]ity of MIKE-SUCROSE VACCINE 00:00:00 [facility] 12 YRS+, BIVALENT Branch 0.3ML, IM, (PFIZER ARITA TOP BOOSTER) SARS-COV-2 COVID-19 2022-03-17 Completed [facility] of MIKE-SUCROSE VACCINE 00:00:00 [facility] 12 YRS+, BIVALENT Branch 0.3ML, IM, (PFIZER ARITA TOP BOOSTER) SARS-COV-2 COVID-19 2022-03-17 Completed [facility]ity of MIKE-SUCROSE VACCINE 00:00:00 [facility] 12 YRS+, BIVALENT Branch 0.3ML, IM, (PFIZER ARITA TOP BOOSTER) SARS-COV-2 COVID-19 2022-03-17 Completed [facility] MIKE-SUCROSE VACCINE 00:00:00 [facility] Y[facility]+, BIVALENT Branch 0.3ML, IM, (PFIZER ARITA TOP BOOSTER) SARS-COV-2 COVID-19 2022-03-17 Completed [facility]ity of MIKE-SUCROSE VACCINE 00:00:00 [facility] 12 YRS+, BIVALENT Branch 0.3ML, IM, (PFIZER ARITA TOP BOOSTER) SARS-COV-2 COVID-19 2022-03-17 Completed [facility]ity of MIKE-SUCROSE VACCINE 00:00:00 [facility] 12 YRS+, BIVALENT Branch 0.3ML, IM, (PFIZER ARITA TOP BOOSTER) SARS-COV-2 COVID-19 2022-03-17 Completed [facility]ity of MIKE-SUCROSE VACCINE 00:00:00 [facility] 12 YRS+, BIVALENT Branch 0.3ML, IM, (PFIZER ARITA TOP BOOSTER) SARS-COV-2 COVID-19 2022-03-17 Completed [facility]ity of MIKE-SUCROSE VACCINE 00:00:00 [facility] 12 YRS+, BIVALENT Branch 0.3ML, IM, (PFIZER ARITA TOP BOOSTER) SARS-COV-2 COVID-19 2022-03-17 Completed [facility] of MIKE-SUCROSE VACCINE 00:00:00 [facility] 12 YRS+, BIVALENT Branch 0.3ML, IM, (PFIZER ARITA TOP BOOSTER) SARS-COV-2 COVID-19 2022-03-17 Completed [facility] of MIKE-SUCROSE VACCINE 00:00:00 [facility] 12 YRS+, BIVALENT Branch 0.3ML, IM, (PFIZER ARITA TOP BOOSTER) SARS-COV-2 COVID-19 2022-03-17 Completed [facility] rsity of MIKE-SUCROSE VACCINE 00:00:00 [facility] 12 YRS+, BIVALENT Branch 0.3ML, IM, (PFIZER ARITA TOP BOOSTER) SARS-COV-2 COVID-19 2022-03-17 Completed [facility] rsity of MIKE-SUCROSE VACCINE 00:00:00 [facility] 12 YRS+, BIVALENT Branch 0.3ML, IM, (PFIZER ARITA TOP BOOSTER) SARS-COV-2 COVID-19 2022-03-17 Completed [facility]ity of MIKE-SUCROSE VACCINE 00:00:00 [facility] 12 YRS+, BIVALENT Branch 0.3ML, IM, (PFIZER ARITA TOP BOOSTER) SARS-COV-2 COVID-19 2022-03-17 Completed [facility] rsity of MIKE-SUCROSE VACCINE 00:00:00 [facility] 12 YRS+, BIVALENT Branch 0.3ML, IM, (PFIZER ARITA TOP BOOSTER) SARS-COV-2 COVID-19 2022-03-17 Completed [facility]ity of MIKE-SUCROSE VACCINE 00:00:00 [facility] 12 YRS+, BIVALENT Branch 0.3ML, IM, (PFIZER ARITA TOP BOOSTER) SARS-COV-2 COVID-19 2022-03-17 Completed [facility]ity of MIKE-SUCROSE VACCINE 00:00:00 [facility] 12 YRS+, BIVALENT Branch 0.3ML, IM, (PFIZER ARITA TOP BOOSTER) SARS-COV-2 COVID-19 2022-03-17 Completed [facility]ity of MIKE-SUCROSE VACCINE 00:00:00 [facility] 12 YRS+, BIVALENT Branch 0.3ML, IM, (PFIZER ARITA TOP BOOSTER) SARS-COV-2 COVID-19 2022-03-17 Completed [facility] rsity of MIKE-SUCROSE VACCINE 00:00:00 [facility] 12 YRS+, BIVALENT Branch 0.3ML, IM, (PFIZER ARITA TOP BOOSTER) SARS-COV-2 COVID-19 2022-03-17 Completed [facility] rsity of MIKE-SUCROSE VACCINE 00:00:00 [facility] 12 YRS+, BIVALENT Branch 0.3ML, IM, (PFIZER ARITA TOP BOOSTER) SARS-COV-2 COVID-19 2022-03-17 Completed [facility] of MIKE-SUCROSE VACCINE 00:00:00 [facility] 12 YRS+, BIVALENT Branch 0.3ML, IM, (PFIZER ARITA TOP BOOSTER) SARS-COV-2 COVID-19 2021-06-24 Completed [facility] rsity of PFIZER VACCINE 00:00:00 [facility] SARS-COV-2 COVID-19 2021-06-24 Completed Unive rsity of PFIZER VACCINE 00:00:00 [facility] SARS-COV-2 COVID-19 2021-06-24 Completed Unive rsity of PFIZER VACCINE 00:00:00 [facility] SARS-COV-2 COVID-19 2021-06-24 Completed Unive rsity of PFIZER VACCINE 00:00:00 [facility] SARS-COV-2 COVID-19 2021-06-24 Completed Unive rsity of PFIZER VACCINE 00:00:00 [facility] SARS-COV-2 COVID-19 2021-06-24 Completed Unive rsity of PFIZER VACCINE 00:00:00 [facility] SARS-COV-2 COVID-19 2021-06-24 Completed [facility]ive rsity of PFIZER VACCINE 00:00:00 [facility] SARS-COV-2 COVID-19 2021-06-24 Completed [facility]ive rsity of PFIZER VACCINE 00:00:00 [facility] SARS-COV-2 COVID-19 2021-06-24 Completed [facility]ive rsity of PFIZER VACCINE 00:00:00 [facility] SARS-COV-2 COVID-19 2021-06-24 Completed Unive rsity of PFIZER VACCINE 00:00:00 [facility] SARS-COV-2 COVID-19 2021-06-24 Completed [facility] rsity of PFIZER VACCINE 00:00:00 [facility] SARS-COV-2 COVID-19 2021-06-24 Completed [facility]ive rsity of PFIZER VACCINE 00:00:00 [facility] SARS-COV-2 COVID-19 2021-06-24 Completed Unive rsity of PFIZER VACCINE 00:00:00 [facility] SARS-COV-2 COVID-19 2021-06-24 Completed Unive rsity of PFIZER VACCINE 00:00:00 [facility] SARS-COV-2 COVID-19 2021-06-24 Completed Unive rsity of PFIZER VACCINE 00:00:00 [facility] SARS-COV-2 COVID-19 2021-06-24 Completed Unive rsity of PFIZER VACCINE 00:00:00 [facility] SARS-COV-2 COVID-19 2021-06-24 Completed [facility]ive rsity of PFIZER VACCINE 00:00:00 [facility] SARS-COV-2 COVID-19 2021-06-24 Completed Unive rsity of PFIZER VACCINE 00:00:00 [facility] SARS-COV-2 COVID-19 2021-06-24 Completed Unive rsity of PFIZER VACCINE 00:00:00 [facility] SARS-COV-2 COVID-19 2021-06-24 Completed Unive rsity of PFIZER VACCINE 00:00:00 [facility] SARS-COV-2 COVID-19 2021-06-24 Completed Unive rsity of PFIZER VACCINE 00:00:00 [facility] SARS-COV-2 COVID-19 2021-06-24 Completed Unive rsity of PFIZER VACCINE 00:00:00 [facility] SARS-COV-2 COVID-19 2021-06-24 Completed Unive rsity of PFIZER VACCINE 00:00:00 [facility] SARS-COV-2 COVID-19 2021-06-24 Completed Unive rsity of PFIZER VACCINE 00:00:00 [facility] SARS-COV-2 COVID-19 2021-06-24 Completed Unive rsity of PFIZER VACCINE 00:00:00 [facility] SARS-COV-2 COVID-19 2021-06-24 Completed Unive rsity of PFIZER VACCINE 00:00:00 [facility] SARS-COV-2 COVID-19 2021-06-24 Completed Unive rsity of PFIZER VACCINE 00:00:00 [facility] SARS-COV-2 COVID-19 2021-06-24 Completed Unive rsity of PFIZER VACCINE 00:00:00 [facility] SARS-COV-2 COVID-19 2021-06-24 Completed Unive rsity of PFIZER VACCINE 00:00:00 [facility] SARS-COV-2 COVID-19 2021-06-24 Completed Unive rsity of PFIZER VACCINE 00:00:00 [facility] SARS-COV-2 COVID-19 2021-06-24 Completed Unive rsity of PFIZER VACCINE 00:00:00 [facility] SARS-COV-2 COVID-19 2021-06-24 Completed Unive rsity of PFIZER VACCINE 00:00:00 [facility] SARS-COV-2 COVID-19 2021-06-24 Completed Unive rsity of PFIZER VACCINE 00:00:00 [facility] SARS-COV-2 COVID-19 2021-06-24 Completed Unive rsity of PFIZER VACCINE 00:00:00 [facility] SARS-COV-2 COVID-19 2021-06-24 Completed Unive rsity of PFIZER VACCINE 00:00:00 [facility] SARS-COV-2 COVID-19 2021-06-24 Completed Unive rsity of PFIZER VACCINE 00:00:00 [facility] SARS-COV-2 COVID-19 2021-06-24 Completed Unive rsity of PFIZER VACCINE 00:00:00 [facility] SARS-COV-2 COVID-19 2021-06-24 Completed Unive rsity of PFIZER VACCINE 00:00:00 [facility] SARS-COV-2 COVID-19 2020-11-21 Completed Unive rsity of PFIZER VACCINE 00:00:00 [facility] SARS-COV-2 COVID-19 2020-11-21 Completed Unive rsity of PFIZER VACCINE 00:00:00 [facility] SARS-COV-2 COVID-19 2020-11-21 Completed Unive rsity of PFIZER VACCINE 00:00:00 [facility] SARS-COV-2 COVID-19 2020-11-21 Completed Unive rsity of PFIZER VACCINE 00:00:00 [facility] SARS-COV-2 COVID-19 2020-11-21 Completed Unive rsity of PFIZER VACCINE 00:00:00 [facility] SARS-COV-2 COVID-19 2020-11-21 Completed Unive rsity of PFIZER VACCINE 00:00:00 [facility] SARS-COV-2 COVID-19 2020-11-21 Completed Unive rsity of PFIZER VACCINE 00:00:00 [facility] SARS-COV-2 COVID-19 2020-11-21 Completed Unive rsity of PFIZER VACCINE 00:00:00 [facility] SARS-COV-2 COVID-19 2020-11-21 Completed Unive rsity of PFIZER VACCINE 00:00:00 [facility] SARS-COV-2 COVID-19 2020-11-21 Completed Unive rsity of PFIZER VACCINE 00:00:00 [facility] SARS-COV-2 COVID-19 2020-11-21 Completed Unive rsity of PFIZER VACCINE 00:00:00 [facility] SARS-COV-2 COVID-19 2020-11-21 Completed Unive rsity of PFIZER VACCINE 00:00:00 [facility] SARS-COV-2 COVID-19 2020-11-21 Completed Unive rsity of PFIZER VACCINE 00:00:00 [facility] SARS-COV-2 COVID-19 2020-11-21 Completed Unive rsity of PFIZER VACCINE 00:00:00 [facility] SARS-COV-2 COVID-19 2020-11-21 Completed Unive rsity of PFIZER VACCINE 00:00:00 [facility] SARS-COV-2 COVID-19 2020-11-21 Completed Unive rsity of PFIZER VACCINE 00:00:00 [facility] SARS-COV-2 COVID-19 2020-11-21 Completed Unive rsity of PFIZER VACCINE 00:00:00 [facility] SARS-COV-2 COVID-19 2020-11-21 Completed Unive rsity of PFIZER VACCINE 00:00:00 [facility] SARS-COV-2 COVID-19 2020-11-21 Completed Unive rsity of PFIZER VACCINE 00:00:00 [facility] SARS-COV-2 COVID-19 2020-11-21 Completed Unive rsity of PFIZER VACCINE 00:00:00 [facility] SARS-COV-2 COVID-19 2020-11-21 Completed Unive rsity of PFIZER VACCINE 00:00:00 [facility] SARS-COV-2 COVID-19 2020-11-21 Completed Unive rsity of PFIZER VACCINE 00:00:00 [facility] SARS-COV-2 COVID-19 2020-11-21 Completed Unive rsity of PFIZER VACCINE 00:00:00 [facility] SARS-COV-2 COVID-19 2020-11-21 Completed Unive rsity of PFIZER VACCINE 00:00:00 [facility] SARS-COV-2 COVID-19 2020-11-21 Completed Unive rsity of PFIZER VACCINE 00:00:00 [facility] SARS-COV-2 COVID-19 2020-11-21 Completed Unive rsity of PFIZER VACCINE 00:00:00 [facility] SARS-COV-2 COVID-19 2020-11-21 Completed Unive rsity of PFIZER VACCINE 00:00:00 [facility] SARS-COV-2 COVID-19 2020-11-21 Completed Unive rsity of PFIZER VACCINE 00:00:00 [facility] SARS-COV-2 COVID-19 2020-11-21 Completed Unive rsity of PFIZER VACCINE 00:00:00 [facility] SARS-COV-2 COVID-19 2020-11-21 Completed Unive rsity of PFIZER VACCINE 00:00:00 [facility] SARS-COV-2 COVID-19 2020-11-21 Completed Unive rsity of PFIZER VACCINE 00:00:00 [facility] SARS-COV-2 COVID-19 2020-11-21 Completed Unive rsity of PFIZER VACCINE 00:00:00 [facility] SARS-COV-2 COVID-19 2020-11-21 Completed [facility]ive rsity of PFIZER VACCINE 00:00:00 [facility] SARS-COV-2 COVID-19 2020-11-21 Completed Unive rsity of PFIZER VACCINE 00:00:00 [facility] SARS-COV-2 COVID-19 2020-11-21 Completed Unive rsity of PFIZER VACCINE 00:00:00 [facility] SARS-COV-2 COVID-19 2020-11-21 Completed Unive rsity of PFIZER VACCINE 00:00:00 [facility] SARS-COV-2 COVID-19 2020-11-21 Completed Unive rsity of PFIZER VACCINE 00:00:00 [facility] SARS-COV-2 COVID-19 2020-11-21 Completed Unive rsity of PFIZER VACCINE 00:00:00 [facility] SARS-COV-2 COVID-19 2020-10-24 Completed [facility]ive rsity of PFIZER VACCINE 00:00:00 [facility] SARS-COV-2 COVID-19 2020-10-24 Completed Unive rsity of PFIZER VACCINE 00:00:00 [facility] SARS-COV-2 COVID-19 2020-10-24 Completed Unive rsity of PFIZER VACCINE 00:00:00 [facility] SARS-COV-2 COVID-19 2020-10-24 Completed [facility]ive rsity of PFIZER VACCINE 00:00:00 [facility] SARS-COV-2 COVID-19 2020-10-24 Completed [facility]ive rsity of PFIZER VACCINE 00:00:00 [facility] SARS-COV-2 COVID-19 2020-10-24 Completed Unive rsity of PFIZER VACCINE 00:00:00 [facility] SARS-COV-2 COVID-19 2020-10-24 Completed [facility]ive rsity of PFIZER VACCINE 00:00:00 [facility] SARS-COV-2 COVID-19 2020-10-24 Completed [facility] rsity of PFIZER VACCINE 00:00:00 [facility] SARS-COV-2 COVID-19 2020-10-24 Completed [facility] rsity of PFIZER VACCINE 00:00:00 [facility] SARS-COV-2 COVID-19 2020-10-24 Completed [facility] rsity of PFIZER VACCINE 00:00:00 [facility] SARS-COV-2 COVID-19 2020-10-24 Completed [facility]ive rsity of PFIZER VACCINE 00:00:00 [facility] SARS-COV-2 COVID-19 2020-10-24 Completed [facility] rsity of PFIZER VACCINE 00:00:00 [facility] SARS-COV-2 COVID-19 2020-10-24 Completed [facility]ity of PFIZER VACCINE 00:00:00 [facility] SARS-COV-2 COVID-19 2020-10-24 Completed [facility] rsity of PFIZER VACCINE 00:00:00 [facility] SARS-COV-2 COVID-19 2020-10-24 Completed [facility] rsity of PFIZER VACCINE 00:00:00 [facility] SARS-COV-2 COVID-19 2020-10-24 Completed [facility]ive rsity of PFIZER VACCINE 00:00:00 [facility] SARS-COV-2 COVID-19 2020-10-24 Completed [facility] rsity of PFIZER VACCINE 00:00:00 [facility] SARS-COV-2 COVID-19 2020-10-24 Completed [facility] rsity of PFIZER VACCINE 00:00:00 [facility] SARS-COV-2 COVID-19 2020-10-24 Completed [facility]ity of PFIZER VACCINE 00:00:00 [facility] SARS-COV-2 COVID-19 2020-10-24 Completed [facility] of PFIZER VACCINE 00:00:00 [facility] SARS-COV-2 COVID-19 2020-10-24 Completed Un[facility] rsity of PFIZER VACCINE 00:00:00 [facility] SARS-COV-2 COVID-19 2020-10-24 Completed [facility] rsity of PFIZER VACCINE 00:00:00 [facility] SARS-COV-2 COVID-19 2020-10-24 Completed [facility] of PFIZER VACCINE 00:00:00 [facility] SARS-COV-2 COVID-19 2020-10-24 Completed Un[facility] rsity of PFIZER VACCINE 00:00:00 [facility] SARS-COV-2 COVID-19 2020-10-24 Completed [facility] rsity of PFIZER VACCINE 00:00:00 [facility] SARS-COV-2 COVID-19 2020-10-24 Completed [facility]ity of PFIZER VACCINE 00:00:00 [facility] SARS-COV-2 COVID-19 2020-10-24 Completed [facility] of PFIZER VACCINE 00:00:00 [facility] SARS-COV-2 COVID-19 2020-10-24 Completed [facility] of PFIZER VACCINE 00:00:00 [facility] SARS-COV-2 COVID-19 2020-10-24 Completed [facility] of PFIZER VACCINE 00:00:00 [facility] SARS-COV-2 COVID-19 2020-10-24 Completed [facility] of PFIZER VACCINE 00:00:00 [facility] SARS-COV-2 COVID-19 2020-10-24 Completed [facility] rsity of PFIZER VACCINE 00:00:00 [facility] SARS-COV-2 COVID-19 2020-10-24 Completed [facility] of PFIZER VACCINE 00:00:00 [facility] SARS-COV-2 COVID-19 2020-10-24 Completed [facility]ive rsity of PFIZER VACCINE 00:00:00 [facility] SARS-COV-2 COVID-19 2020-10-24 Completed [facility] of PFIZER VACCINE 00:00:00 [facility] SARS-COV-2 COVID-19 2020-10-24 Completed [facility] of PFIZER VACCINE 00:00:00 [facility] SARS-COV-2 COVID-19 2020-10-24 Completed [facility] rs[facility] of PFIZER VACCINE 00:00:00 [facility] SARS-COV-2 COVID-19 2020-10-24 Completed [facility] of PFIZER VACCINE 00:00:00 [facility] SARS-COV-2 COVID-19 2020-10-24 Completed Unive rsity [...] 2018-10-31 Completed [facility] ersity of 00:00:00 [facility] Meningococcal B, OMV 2018-10-31 Completed Univ ersity of 00:00:00 [facility] Meningococcal B, OMV 2018-10-31 Completed [facility] ersity of 00:00:00 [facility] Meningococcal B, OMV 2018-10-31 Completed Univ ersity of 00:00:00 [facility] Meningococcal B, OMV 2018-10-31 Completed [facility] ersity of 00:00:00 [facility] Influenza Virus 2018-08-29 Completed [facility] Vaccine [facility] .5 mL IM 00:00:00 [facility] [place] [facility] Meningococcal B, OMV 2018-08-29 Completed [facility] ers[facility] of 00:00:00 [facility] Influenza Virus 2018-08-29 Completed [facility] of Vaccine Quad .5 mL IM 00:00:00 [facility] Meningococcal B, OMV 2018-08-29 Completed [facility] ers[facility] of 00:00:00 [facility] Influenza Virus 2018-08-29 Completed [facility] of Vaccine Quad .5 mL IM 00:00:00 [facility] 6[facility] Meningococcal B, OMV 2018-08-29 Completed [facility] 00[facility]00:00 [facility] Influenza Virus 2018-08-29 Completed [facility] Vaccine Quad .5 mL IM 00:00:00 [facility] 6[facility] Meningococcal B, OMV 2018-08-29 Completed [facility] 00[facility]00:00 [facility] Influenza Virus 2018-08-29 Completed [facility] Vaccine Quad .5 mL IM 00:00:00 [facility] 6[facility] Meningococcal B, OMV 2018-08-29 Completed [facility] 00:00:00 [facility] Influenza Virus 2018-08-29 Completed [facility] Vaccine Quad .5 mL IM 00:00:00 [facility] 6[facility] Meningococcal B, OMV 2018-08-29 Completed [facility] 00:00:00 [facility] Influenza Virus 2018-08-29 Completed [facility] Vaccine Quad .5 mL IM 00:00:00 [facility] 6[facility] Meningococcal B, OMV 2018-08-29 Completed [facility] 00:00:00 [facility] Influenza Virus 2018-08-29 Completed [facility] Vaccine Quad .5 mL IM 00:00:00 [facility] 6[facility] Meningococcal B, OMV 2018-08-29 Completed [facility] 00:00:00 [facility] Influenza Virus 2018-08-29 Completed [facility] Vaccine Quad .5 mL IM 00:00:00 [facility] Meningococcal B, OMV 2018-08-29 Completed [facility] 00:00:00 [facility] Influenza Virus 2018-08-29 Completed [facility] Vaccine Quad .5 mL IM 00:00:00 [facility] Meningococcal B, OMV 2018-08-29 Completed [facility] 00:00:00 [facility] Influenza Virus 2018-08-29 Completed [facility] Vaccine Quad .5 mL IM 00:00:00 [facility] 6[facility] Meningococcal B, OMV 2018-08-29 Completed [facility] 00:00:00 [facility] Influenza Virus 2018-08-29 Completed [facility] of Vaccine Quad .5 mL IM 00:00:00 [facility] Meningococcal B, OMV 2018-08-29 Completed [facility] 00:00:00 [facility] Influenza Virus 2018-08-29 Completed [facility] of Vaccine Quad .5 mL IM 00:00:00 [facility] Meningococcal B, OMV 2018-08-29 Completed [facility] 00:00:00 [facility] Influenza Virus 2018-08-29 Completed [facility] Vaccine Quad .5 mL IM 00:00:00 [facility] Meningococcal B, OMV 2018-08-29 Completed [facility] 00:00:00 [facility] Influenza Virus 2018-08-29 Completed [facility] Vaccine Quad .5 mL IM 00:00:00 [facility] Meningococcal B, OMV 2018-08-29 Completed [facility] 00:00:00 [facility] Influenza Virus 2018-08-29 Completed [facility] Vaccine Quad .5 mL IM 00:00:00 [facility] Meningococcal B, OMV 2018-08-29 Completed [facility] 00:00:00 [facility] Influenza Virus 2018-08-29 Completed [facility] Vaccine Quad .5 mL IM 00:00:00 [facility] 6[facility] Meningococcal B, OMV 2018-08-29 Completed [facility] 00:00:00 [facility] Influenza Virus 2018-08-29 Completed [facility] Vaccine Quad .5 mL IM 00:00:00 [facility] Meningococcal B, OMV 2018-08-29 Completed [facility] 00:00:00 [facility] Influenza Virus 2018-08-29 Completed [facility] Vaccine Quad .5 mL IM 00:00:00 [facility] Meningococcal B, OMV 2018-08-29 Completed [facility] 00:00:00 [facility] Influenza Virus 2018-08-29 Completed [facility] Vaccine Quad .5 mL IM 00:00:00 [facility] Meningococcal B, OMV 2018-08-29 Completed [facility] 00:00:00 [facility] Influenza Virus 2018-08-29 Completed [facility] Vaccine Quad .5 mL IM 00:00:00 [facility] Meningococcal B, OMV 2018-08-29 Completed [facility] 00:00:00 [facility] Influenza Virus 2018-08-29 Completed [facility] Vaccine Quad .5 mL IM 00:00:00 [facility] Meningococcal B, OMV 2018-08-29 Completed [facility] 00:00:00 [facility] Influenza Virus 2018-08-29 Completed [facility] Vaccine Quad .5 mL IM 00:00:00 [facility] Meningococcal B, OMV 2018-08-29 Completed [facility] 00:00:00 [facility] Influenza Virus 2018-08-29 Completed [facility] Vaccine Quad .5 mL IM 00:00:00 [facility] 6[facility] Meningococcal B, OMV 2018-08-29 Completed [facility] 00:00:00 [facility] Influenza Virus 2018-08-29 Completed [facility] Vaccine Quad .5 mL IM 00:00:00 [facility] Meningococcal B, OMV 2018-08-29 Completed [facility] 00:00:00 [facility] Influenza Virus 2018-08-29 Completed [facility] Vaccine Quad .5 mL IM 00:00:00 [facility] Meningococcal B, OMV 2018-08-29 Completed [facility] 00:00:00 [facility] Influenza Virus 2018-08-29 Completed [facility] Vaccine Quad .5 mL IM 00:00:00 [facility] Meningococcal B, OMV 2018-08-29 Completed [facility] 00:00:00 [facility] Influenza Virus 2018-08-29 Completed [facility] Vaccine Quad .5 mL IM 00:00:00 [facility] 6[facility] Meningococcal B, OMV 2018-08-29 Completed [facility] 00:00:00 [facility] Influenza Virus 2018-08-29 Completed [facility] Vaccine Quad .5 mL IM 00:00:00 [facility] 6[facility] Meningococcal B, OMV 2018-08-29 Completed [facility] 00:00:00 [facility] Influenza Virus 2018-08-29 Completed [facility] Vaccine Quad .5 mL IM 00:00:00 [facility] Meningococcal B, OMV 2018-08-29 Completed [facility] 00:00:00 [facility] Influenza Virus 2018-08-29 Completed [facility] Vaccine Quad .5 mL IM 00:00:00 [facility] 6[facility] Meningococcal B, OMV 2018-08-29 Completed [facility] 00:00:00 [facility] Influenza Virus 2018-08-29 Completed [facility] Vaccine Quad .5 mL IM 00:00:00 [facility] Meningococcal B, OMV 2018-08-29 Completed [facility] 00:00:00 [facility] Influenza Virus 2018-08-29 Completed [facility] of Vaccine Quad .5 mL IM 00:00:00 [facility] 6[facility] Meningococcal B, OMV 2018-08-29 Completed [facility] 00:00:00 [facility] Influenza Virus 2018-08-29 Completed [facility] of Vaccine Quad .5 mL IM 00:00:00 [facility] Meningococcal B, OMV 2018-08-29 Completed [facility] 00:00:00 [facility] Influenza Virus 2018-08-29 Completed [facility] Vaccine Quad .5 mL IM 00:00:00 [facility] Meningococcal B, OMV 2018-08-29 Completed [facility] 00:00:00 [facility] Influenza Virus 2018-08-29 Completed [facility] of Vaccine Quad .5 mL IM 00:00:00 [facility] 6[facility] Meningococcal B, OMV 2018-08-29 Completed [facility] 00:00:00 [facility] Influenza Virus 2018-08-29 Completed [facility] of Vaccine Quad .5 mL IM 00:00:00 [facility] Meningococcal B, OMV 2018-08-29 Completed [facility] 00:00:00 [facility] Influenza Virus 2018-08-29 Completed [facility] of Vaccine Quad .5 mL IM 00:00:00 [facility] Meningococcal B, OMV 2018-08-29 Completed [facility] 00:00:00 [facility] Meningococcal 2018-01-17 Completed [facility] Polysaccharide 00:00:00 [place] [facility] (groups A, C, Y and Branc h W-135) conjugate vaccine (MCV4P) Meningococcal 2018-01-17 Completed [facility] Polysaccharide 00:00:00 [place] [facility] (groups A, C, Y and Branc h W-135) conjugate vaccine (MCV4P) Meningococcal 2018-01-17 Completed [facility] Polysaccharide 00:00:00 [place] [facility] (groups A, C, Y and Branc h W-135) conjugate vaccine (MCV4P) Meningococcal 2018-01-17 Completed [facility] Polysaccharide 00:00:00 [place] [facility] (groups A, C, Y and Branc h W-135) conjugate vaccine (MCV4P) Meningococcal 2018-01-17 Completed [facility] Polysaccharide 00:00:00 [place] [facility] (groups A, C, Y and Branc h W-135) conjugate vaccine (MCV4P) Meningococcal 2018-01-17 Completed [facility] Polysaccharide 00:00:00 [place] [facility] (groups A, C, Y and Branc h W-135) conjugate vaccine (MCV4P) Meningococcal 2018-01-17 Completed [facility] Polysaccharide 00:00:00 [place] [facility] (groups A, C, Y and Branc h W-135) conjugate vaccine (MCV4P) Meningococcal 2018-01-17 Completed [facility] Polysaccharide 00:00:00 [place] [facility] (groups A, C, Y and [...] Meningococcal 2018-01-17 Completed [facility] Polysaccharide 00:00:00 [place] [facility] (groups A, C, Y and Branc h W-135) conjugate vaccine (MCV4P) Influenza Virus 2017-04-12 Completed [facility] Vaccine Quad IM 3+ 00:00:00 [facility] Influenza Virus 2017-04-12 Completed [facility]it y of Vaccine Quad IM 3+ 00:00:00 [facility] Influenza Virus 2017-04-12 Completed [facility] of Vaccine Quad IM 3+ 00:00:00 [facility] Influenza Virus 2017-04-12 Completed [facility] of Vaccine Quad IM 3+ 00:00:00 [facility] Influenza Virus 2017-04-12 Completed [facility] of Vaccine Quad IM 3+ 00:00:00 [facility] Influenza Virus 2017-04-12 Completed [facility] of Vaccine Quad IM 3+ 00:00:00 [facility] Influenza Virus 2017-04-12 Completed [facility] of Vaccine Quad IM 3+ 00:00:00 [facility] Influenza Virus 2017-04-12 Completed [facility] y of Vaccine Quad IM 3+ 00:00:00 [facility] Influenza Virus 2017-04-12 Completed [facility] of Vaccine Quad IM 3+ 00:00:00 [facility] Influenza Virus 2017-04-12 Completed [facility] of Vaccine Quad IM 3+ 00:00:00 [facility] Influenza Virus 2017-04-12 Completed [facility] of Vaccine Quad IM 3+ 00:00:00 [facility] Influenza Virus 2017-04-12 Completed [facility] of Vaccine Quad IM 3+ 00:00:00 [facility] Influenza Virus 2017-04-12 Completed [facility] of Vaccine Quad IM 3+ 00:00:00 [facility] Influenza Virus 2017-04-12 Completed [facility] of Vaccine Quad IM 3+ 00:00:00 [facility] Influenza Virus 2017-04-12 Completed [facility] of Vaccine Quad IM 3+ 00:00:00 [facility] Influenza Virus 2017-04-12 Completed [facility] of Vaccine Quad IM 3+ 00:00:00 [facility] Influenza Virus 2017-04-12 Completed [facility] of Vaccine Quad IM 3+ 00:00:00 [facility] Influenza Virus 2017-04-12 Completed [facility] of Vaccine Quad IM 3+ 00:00:00 [facility] Influenza Virus 2017-04-12 Completed [facility] of Vaccine Quad IM 3+ 00:00:00 [facility] Influenza Virus 2017-04-12 Completed [facility] of Vaccine Quad IM 3+ 00:00:00 [facility] Influenza Virus 2017-04-12 Completed [facility] of Vaccine Quad IM 3+ 00:00:00 [facility] Influenza Virus 2017-04-12 Completed [facility] of Vaccine Quad IM 3+ 00:00:00 [facility] Influenza Virus 2017-04-12 Completed [facility] of Vaccine Quad IM 3+ 00:00:00 [facility] Influenza Virus 2017-04-12 Completed [facility] of Vaccine Quad IM 3+ 00:00:00 [facility] Influenza Virus 2017-04-12 Completed [facility] of Vaccine Quad IM 3+ 00:00:00 [facility] Influenza Virus 2017-04-12 Completed [facility] of Vaccine Quad IM 3+ 00:00:00 [facility] Influenza Virus 2017-04-12 Completed [facility] of Vaccine Quad IM 3+ 00:00:00 [facility] Influenza Virus 2017-04-12 Completed [facility] of Vaccine Quad IM 3+ 00:00:00 [facility] Influenza Virus 2017-04-12 Completed [facility] of Vaccine Quad IM 3+ 00:00:00 [facility] Influenza Virus 2017-04-12 Completed [facility] of Vaccine Quad IM 3+ 00:00:00 [facility] Influenza Virus 2017-04-12 Completed [facility] of Vaccine Quad IM 3+ 00:00:00 [facility] Influenza Virus 2017-04-12 Completed [facility] of Vaccine Quad IM 3+ 00:00:00 [facility] Influenza Virus 2017-04-12 Completed [facility] y of Vaccine Quad IM 3+ 00:00:00 [facility] Influenza Virus 2017-04-12 Completed [facility] y of Vaccine Quad IM 3+ 00:00:00 [facility] Influenza Virus 2017-04-12 Completed [facility] y of Vaccine Quad IM 3+ 00:00:00 [facility] Influenza Virus 2017-04-12 Completed [facility] y of Vaccine Quad IM 3+ 00:00:00 [facility] Influenza Virus 2017-04-12 Completed [facility] y of Vaccine Quad IM 3+ 00:00:00 [facility] Influenza Virus 2017-04-12 Completed [facility] y of Vaccine Quad IM 3+ 00:00:00 [facility] HPV9 2017-02-01 Completed [facility] of 00:00:00 [facility] HPV9 2017-02-01 Completed [facility] of 00:00:00 [facility] HPV9 2017-02-01 Completed [facility] of 00:00:00 [facility] HPV9 2017-02-01 Completed [facility] of 00:00:00 [facility] HPV9 2017-02-01 Completed [facility] of 00:00:00 [facility] HPV9 2017-02-01 Completed [facility] of 00:00:00 [facility] HPV9 2017-02-01 Completed [facility] of 00:00:00 [facility] HPV9 2017-02-01 Completed [facility] of 00:00:00 [facility] HPV9 2017-02-01 Completed [facility] of 00:00:00 [facility] HPV9 2017-02-01 Completed [facility] of 00:00:00 [facility] HPV9 2017-02-01 Completed University of 00:00:00 [facility] HPV9 2017-02-01 Completed [facility] of 00:00:00 [facility] HPV9 2017-02-01 Completed [facility] of 00:00:00 [facility] HPV9 2017-02-01 Completed [facility] of 00:00:00 [facility] HPV9 2017-02-01 Completed [facility] of 00:00:00 [facility] HPV9 2017-02-01 Completed [facility] of 00:00:00 [facility] HPV9 2017-02-01 Completed [facility] of 00:00:00 [facility] HPV9 2017-02-01 Completed [facility] of 00:00:00 [facility] HPV9 2017-02-01 Completed [facility] 00:00:00 [facility] HPV9 2017-02-01 Completed [facility] 00:00:00 [facility] HPV9 2017-02-01 Completed [facility] 00:00:00 [facility] HPV9 2017-02-01 Completed [facility] 00:00:00 [facility] HPV9 2017-02-01 Completed [facility] 00:00:00 [facility] HPV9 2017-02-01 Completed [facility] 00:00:00 [facility] HPV9 2017-02-01 Completed [facility] 00:00:00 [facility] HPV9 2017-02-01 Completed [facility] 00:00:00 [facility] HPV9 2017-02-01 Completed [facility] 00:00:00 [facility] HPV9 2017-02-01 Completed [facility] 00:00:00 [facility] HPV9 2017-02-01 Completed [facility] 00:00:00 [facility] HPV9 2017-02-01 Completed [facility] 00:00:00 [facility] HPV9 2017-02-01 Completed [facility] 00:00:00 [facility] HPV9 2017-02-01 Completed [facility] 00:00:00 [facility] HPV9 2017-02-01 Completed [facility] 00:00:00 [facility] HPV9 2017-02-01 Completed [facility] 00:00:00 [facility] HPV9 2017-02-01 Completed [facility] 00:00:00 [facility] HPV9 2017-02-01 Completed [facility] 00:00:00 [facility] HPV9 2017-02-01 Completed [facility] 00:00:00 [facility] HPV9 2017-02-01 Completed University of [...] Branch HPV 2016-01-20 Completed [facility] 00:00:00 [facility] HPV 2016-01-20 Completed [facility] 00:00:00 [facility] HPV 2016-01-20 Completed [facility] 00:00:00 [facility] HPV 2016-01-20 Completed [facility] 00:00:00 [facility] HPV 2016-01-20 Completed [facility] 00:00:00 [facility] HPV 2016-01-20 Completed [facility] 00:00:00 [facility] HPV 2016-01-20 Completed [facility] 00:00:00 [facility] HPV 2016-01-20 Completed [facility] 00:00:00 [facility] HPV 2016-01-20 Completed [facility] 00[facility]00:00 [facility] HPV 2016-01-20 Completed [facility] 00:00:00 [facility] HPV 2016-01-20 Completed [facility] 00:00:00 [facility] HPV 2016-01-20 Completed [facility] 00:00:00 [facility] HPV 2016-01-20 Completed [facility] 00:00:00 [facility] HPV 2016-01-20 Completed [facility] 00:00:00 [facility] HPV 2016-01-20 Completed [facility] 00:00:00 [facility] HPV 2016-01-20 Completed [facility] 00:00:00 [facility] HPV 2016-01-20 Completed [facility] 00:00:00 [facility] HPV 2016-01-20 Completed [facility] 00:00:00 [facility] HPV 2016-01-20 Completed [facility] 00:00:00 [facility] HPV 2016-01-20 Completed [facility] 00:00:00 [facility] HPV 2016-01-20 Completed [facility] 00:00:00 [facility] HPV 2016-01-20 Completed [facility] 00:00:00 [facility] HPV 2016-01-20 Completed [facility] 00:00:00 [facility] HPV 2016-01-20 Completed [facility] 00:00:00 [facility] HPV 2016-01-20 Completed [facility] 00:00:00 [facility] HPV 2016-01-20 Completed [facility] 00:00:00 [facility] HPV 2016-01-20 Completed [facility] 00:00:00 [facility] HPV 2016-01-20 Completed [facility] 00:00:00 [facility] HPV 2016-01-20 Completed [facility] 00:00:00 [facility] HPV 2016-01-20 Completed [facility] 00:00:00 [facility] Influenza Virus 2015-07-08 Completed [facility]it y of Vaccine Quad IM 3+ 00:00:00 [facility] HPV9 2015-07-08 Completed [facility] of 00:00:00 [facility] Influenza Virus 2015-07-08 Completed [facility]it y of Vaccine Quad IM 3+ 00:00:00 [facility] HPV9 2015-07-08 Completed [facility] of 00:00:00 [facility] Influenza Virus 2015-07-08 Completed [facility]it y of Vaccine Quad IM 3+ 00:00:00 [facility] HPV9 2015-07-08 Completed [facility] of 00:00:00 [facility] Influenza Virus 2015-07-08 Completed [facility]it y of Vaccine Quad IM 3+ 00:00:00 [facility] HPV9 2015-07-08 Completed [facility] of 00:00:00 [facility] Influenza Virus 2015-07-08 Completed [facility]it y of Vaccine Quad IM 3+ 00:00:00 [facility] HPV9 2015-07-08 Completed [facility] of 00:00:00 [facility] Influenza Virus 2015-07-08 Completed [facility] y of Vaccine Quad IM 3+ 00:00:00 [facility] HPV9 2015-07-08 Completed [facility] of 00:00:00 [facility] Influenza Virus 2015-07-08 Completed [facility] y of Vaccine Quad IM 3+ 00:00:00 [facility] HPV9 2015-07-08 Completed [facility] of 00:00:00 [facility] Influenza Virus 2015-07-08 Completed [facility]it y of Vaccine Quad IM 3+ 00:00:00 [facility] HPV9 2015-07-08 Completed [facility] of 00:00:00 [facility] Influenza Virus 2015-07-08 Completed [facility] y of Vaccine Quad IM 3+ 00:00:00 [facility] HPV9 2015-07-08 Completed [facility] of 00:00:00 [facility] Influenza Virus 2015-07-08 Completed [facility] y of Vaccine Quad IM 3+ 00:00:00 [facility] HPV9 2015-07-08 Completed [facility] of 00:00:00 [facility] Influenza Virus 2015-07-08 Completed [facility] y of Vaccine Quad IM 3+ 00:00:00 [facility] HPV9 2015-07-08 Completed [facility] of 00:00:00 [facility] Influenza Virus 2015-07-08 Completed [facility] y of Vaccine Quad IM 3+ 00:00:00 [facility] HPV9 2015-07-08 Completed [facility] of 00:00:00 [facility] Influenza Virus 2015-07-08 Completed [facility] y of Vaccine Quad IM 3+ 00:00:00 [facility] HPV9 2015-07-08 Completed [facility] of 00:00:00 [facility] Influenza Virus 2015-07-08 Completed [facility] y of Vaccine Quad IM 3+ 00:00:00 [facility] HPV9 2015-07-08 Completed [facility] of 00:00:00 [facility] Influenza Virus 2015-07-08 Completed [facility] y of Vaccine Quad IM 3+ 00:00:00 [facility] HPV9 2015-07-08 Completed [facility] of 00:00:00 [facility] Influenza Virus 2015-07-08 Completed [facility]it y of Vaccine Quad IM 3+ 00:00:00 [facility] HPV9 2015-07-08 Completed [facility] of 00:00:00 [facility] Influenza Virus 2015-07-08 Completed [facility] y of Vaccine Quad IM 3+ 00:00:00 [facility] HPV9 2015-07-08 Completed [facility] of 00:00:00 [facility] Influenza Virus 2015-07-08 Completed [facility]it y of Vaccine Quad IM 3+ 00:00:00 [facility] HPV9 2015-07-08 Completed [facility] of 00:00:00 [facility] Influenza Virus 2015-07-08 Completed [facility] y of Vaccine Quad IM 3+ 00:00:00 [facility] HPV9 2015-07-08 Completed [facility] of 00:00:00 [facility] Influenza Virus 2015-07-08 Completed [facility] y of Vaccine Quad IM 3+ 00:00:00 [facility] HPV9 2015-07-08 Completed [facility] of 00:00:00 [facility] Influenza Virus 2015-07-08 Completed [facility] y of Vaccine Quad IM 3+ 00:00:00 [facility] HPV9 2015-07-08 Completed [facility] of 00:00:00 [facility] Influenza Virus 2015-07-08 Completed [facility] y of Vaccine Quad IM 3+ 00:00:00 [facility] HPV9 2015-07-08 Completed [facility] of 00:00:00 [facility] Influenza Virus 2015-07-08 Completed [facility]it y of Vaccine Quad IM 3+ 00:00:00 [facility] HPV9 2015-07-08 Completed [facility] of 00:00:00 [facility] Influenza Virus 2015-07-08 Completed [facility] y of Vaccine Quad IM 3+ 00:00:00 [facility] HPV9 2015-07-08 Completed [facility] of 00:00:00 [facility] Influenza Virus 2015-07-08 Completed [facility] y of Vaccine Quad IM 3+ 00:00:00 [facility] HPV9 2015-07-08 Completed [facility] 00:00:00 [facility] Influenza Virus 2015-07-08 Completed [facility] y of Vaccine Quad IM 3+ 00:00:00 [facility] HPV9 2015-07-08 Completed [facility] of 00:00:00 [facility] Influenza Virus 2015-07-08 Completed [facility] Vaccine Quad IM 3+ 00:00:00 [facility] HPV9 2015-07-08 Completed [facility] 00:00:00 [facility] Influenza Virus 2015-07-08 Completed [facility] Vaccine Quad IM 3+ 00:00:00 [facility] HPV9 2015-07-08 Completed [facility] 00:00:00 [facility] Influenza Virus 2015-07-08 Completed [facility] Vaccine Quad IM 3+ 00:00:00 [facility] HPV9 2015-07-08 Completed [facility] 00:00:00 [facility] Influenza Virus 2015-07-08 Completed [facility] Vaccine Quad IM 3+ 00:00:00 [facility] HPV9 2015-07-08 Completed [facility] 00:00:00 [facility] Influenza Virus 2015-07-08 Completed [facility] Vaccine Quad IM 3+ 00:00:00 [facility] HPV9 2015-07-08 Completed [facility] 00:00:00 [facility] Influenza Virus 2015-07-08 Completed [facility] Vaccine Quad IM 3+ 00:00:00 [facility] HPV9 2015-07-08 Completed [facility] 00:00:00 [facility] Influenza Virus 2015-07-08 Completed [facility] Vaccine Quad IM 3+ 00:00:00 [facility] HPV9 2015-07-08 Completed [facility] 00:00:00 [facility] Influenza Virus 2015-07-08 Completed [facility] Vaccine Quad IM 3+ 00:00:00 [facility] HPV9 2015-07-08 Completed [facility] 00:00:00 [facility] Influenza Virus 2015-07-08 Completed [facility] Vaccine Quad IM 3+ 00:00:00 [facility] HPV9 2015-07-08 Completed [facility] 00:00:00 [facility] Influenza Virus 2015-07-08 Completed [facility] Vaccine Quad IM 3+ 00:00:00 [facility] HPV9 2015-07-08 Completed [facility] 00:00:00 [facility] Influenza Virus 2015-07-08 Completed [facility] Vaccine Quad IM 3+ 00:00:00 [facility] HPV9 2015-07-08 Completed [facility] 00:00:00 [facility] Influenza Virus 2015-07-08 Completed [facility] Vaccine Quad IM 3+ 00:00:00 [facility] HPV9 2015-07-08 Completed [facility] 00:00:00 [facility] Influenza Virus 2014-04-02 Completed [facility] Vaccine (3+ yrs) 00:00:00 [facility] Influenza Virus 2014-04-02 Completed [facility] Vaccine (3+ yrs) 00:00:00 [facility] Influenza Virus 2014-04-02 Completed [facility] Vaccine (3+ yrs) 00:00:00 [facility] Influenza Virus 2014-04-02 Completed [facility] Vaccine (3+ yrs) 00:00:00 [facility] Influenza Virus 2014-04-02 Completed [facility] Vaccine (3+ yrs) 00:00:00 [facility] Influenza Virus 2014-04-02 Completed [facility] Vaccine (3+ yrs) 00:00:00 [facility] Influenza Virus 2014-04-02 Completed [facility] Vaccine (3+ yrs) 00:00:00 [facility] Influenza Virus 2014-04-02 Completed [facility] Vaccine (3+ yrs) 00:00:00 [facility] Influenza Virus 2014-04-02 Completed [facility] Vaccine (3+ yrs) 00:00:00 [facility] Influenza Virus 2014-04-02 Completed [facility] Vaccine (3+ yrs) 00:00:00 [facility] Influenza Virus 2014-04-02 Completed [facility] Vaccine (3+ yrs) 00:00:00 [facility] Influenza Virus 2014-04-02 Completed [facility] Vaccine (3+ yrs) 00:00:00 [facility] Influenza Virus 2014-04-02 Completed [facility] Vaccine (3+ yrs) 00:00:00 [facility] Influenza Virus 2014-04-02 Completed [facility] Vaccine (3+ yrs) 00:00:00 [facility] Influenza Virus 2014-04-02 Completed [facility] Vaccine (3+ yrs) 00:00:00 [facility] Influenza Virus 2014-04-02 Completed [facility] Vaccine (3+ yrs) 00:00:00 [facility] Influenza Virus 2014-04-02 Completed [facility] Vaccine (3+ yrs) 00:00:00 [facility] Influenza Virus 2014-04-02 Completed [facility] Vaccine (3+ yrs) 00:00:00 [facility] Influenza Virus 2014-04-02 Completed [facility] Vaccine (3+ yrs) 00:00:00 [facility] Influenza Virus 2014-04-02 Completed [facility] Vaccine (3+ yrs) 00:00:00 [facility] Influenza Virus 2014-04-02 Completed [facility] Vaccine (3+ yrs) 00:00:00 [facility] Influenza Virus 2014-04-02 Completed [facility] Vaccine (3+ yrs) 00:00:00 [facility] Influenza Virus 2014-04-02 Completed [facility] Vaccine (3+ yrs) 00:00:00 [facility] Influenza Virus 2014-04-02 Completed [facility] Vaccine (3+ yrs) 00:00:00 [facility] Influenza Virus 2014-04-02 Completed [facility] Vaccine (3+ yrs) 00:00:00 [facility] Influenza Virus 2014-04-02 Completed [facility] Vaccine (3+ yrs) 00:00:00 [facility] Influenza Virus 2014-04-02 Completed [facility] Vaccine (3+ yrs) 00:00:00 [facility] Influenza Virus 2014-04-02 Completed [facility] Vaccine (3+ yrs) 00:00:00 [facility] Influenza Virus 2014-04-02 Completed [facility] Vaccine (3+ yrs) 00:00:00 [facility] Influenza Virus 2014-04-02 Completed [facility] Vaccine (3+ yrs) 00:00:00 [facility] Influenza Virus 2014-04-02 Completed [facility] Vaccine (3+ yrs) 00:00:00 [facility] Influenza Virus 2014-04-02 Completed [facility] Vaccine (3+ yrs) 00:00:00 [facility] Influenza Virus 2014-04-02 Completed [facility] Vaccine (3+ yrs) 00:00:00 [facility] Influenza Virus 2014-04-02 Completed [facility] Vaccine (3+ yrs) 00:00:00 [facility] Influenza Virus 2014-04-02 Completed [facility] Vaccine (3+ yrs) 00:00:00 [facility] Influenza Virus 2014-04-02 Completed [facility] Vaccine (3+ yrs) 00:00:00 [facility] Influenza Virus 2014-04-02 Completed [facility] Vaccine (3+ yrs) 00:00:00 [facility] Influenza Virus 2014-04-02 Completed [facility] Vaccine (3+ yrs) 00:00:00 [facility] Influenza Virus 2013-05-22 Completed [facility] Vaccine (3+ yrs) 00:00:00 [facility] Meningococcal 2013-05-22 Completed [facility] Polysaccharide 00:00:00 [facility] (groups A, C, Y and Branc h W-135) conjugate vaccine (MCV4P) TDAP 2013-05-22 Completed [facility] 00:00:00 [facility] Influenza Virus 2013-05-22 Completed [facility] Vaccine (3+ yrs) 00:00:00 [facility] Meningococcal 2013-05-22 Completed [facility] Polysaccharide 00:00:00 [facility] (groups A, C, Y and Branc h W-135) conjugate vaccine (MCV4P) TDAP 2013-05-22 Completed [facility] 00:00:00 [facility] Influenza Virus 2013-05-22 Completed [facility] Vaccine (3+ yrs) 00:00:00 [facility] Meningococcal 2013-05-22 Completed [facility] Polysaccharide 00:00:00 [facility] (groups A, C, Y and Branc h W-135) conjugate vaccine (MCV4P) TDAP 2013-05-22 Completed [facility] 00:00:00 [facility] Influenza Virus 2013-05-22 Completed [facility] Vaccine (3+ yrs) 00:00:00 [facility] Meningococcal 2013-05-22 Completed [facility] Polysaccharide 00:00:00 [facility] (groups A, C, Y and Branc h W-135) conjugate vaccine (MCV4P) TDAP 2013-05-22 Completed [facility] 00:00:00 [facility] Influenza Virus 2013-05-22 Completed [facility] Vaccine (3+ yrs) 00:00:00 [facility] Meningococcal 2013-05-22 Completed [facility] Polysaccharide 00:00:00 [facility] (groups A, C, Y and Branc h W-135) conjugate vaccine (MCV4P) TDAP 2013-05-22 Completed [facility] 00:00:00 [facility] Influenza Virus 2013-05-22 Completed [facility] Vaccine (3+ yrs) 00:00:00 [facility] Meningococcal 2013-05-22 Completed [facility] Polysaccharide 00:00:00 [facility] (groups A, C, Y and Branc h W-135) conjugate vaccine (MCV4P) TDAP 2013-05-22 Completed [facility] 00:00:00 [facility] Influenza Virus 2013-05-22 Completed [facility] Vaccine (3+ yrs) 00:00:00 [facility] Meningococcal 2013-05-22 Completed [facility] Polysaccharide 00:00:00 [facility] (groups A, C, Y and Branc h W-135) conjugate vaccine (MCV4P) TDAP 2013-05-22 Completed [facility] 00:00:00 [facility] Influenza Virus 2013-05-22 Completed [facility] Vaccine (3+ yrs) 00:00:00 [facility] Meningococcal 2013-05-22 Completed [facility] Polysaccharide 00:00:00 [facility] (groups A, C, Y and Branc h W-135) conjugate vaccine (MCV4P) TDAP 2013-05-22 Completed [facility] 00:00:00 [facility] Influenza Virus 2013-05-22 Completed [facility] Vaccine (3+ yrs) 00:00:00 [facility] Meningococcal 2013-05-22 Completed [facility] Polysaccharide 00:00:00 [place] [facility] (groups A, C, Y and Branc h W-135) conjugate vaccine (MCV4P) TDAP 2013-05-22 Completed [facility] 00:00:00 [facility] Influenza Virus 2013-05-22 Completed [facility] Vaccine (3+ yrs) 00:00:00 [facility] Meningococcal 2013-05-22 Completed [facility] Polysaccharide 00:00:00 [facility] (groups A, C, Y and Branc h W-135) conjugate vaccine (MCV4P) TDAP 2013-05-22 Completed [facility] 00:00:00 [facility] Influenza Virus 2013-05-22 Completed [facility] Vaccine (3+ yrs) 00:00:00 [facility] Meningococcal 2013-05-22 Completed [facility] Polysaccharide 00:00:00 [facility] (groups A, C, Y and Branc h W-135) conjugate vaccine (MCV4P) TDAP 2013-05-22 Completed [facility] 00:00:00 [facility] Influenza Virus 2013-05-22 Completed [facility] Vaccine (3+ yrs) 00:00:00 [facility] Meningococcal 2013-05-22 Completed [facility] Polysaccharide 00:00:00 [place] [facility] (groups A, C, Y and Branc h W-135) conjugate vaccine (MCV4P) TDAP 2013-05-22 Completed [facility] 00:00:00 [facility] Influenza Virus 2013-05-22 Completed [facility] Vaccine (3+ yrs) 00:00:00 [facility] Meningococcal 2013-05-22 Completed [facility] Polysaccharide 00:00:00 [place] [facility] (groups A, C, Y and Branc h W-135) conjugate vaccine (MCV4P) TDAP 2013-05-22 Completed [facility] 00:00:00 [facility] Influenza Virus 2013-05-22 Completed [facility] Vaccine (3+ yrs) 00:00:00 [facility] Meningococcal 2013-05-22 Completed [facility] Polysaccharide 00:00:00 [place] [facility] (groups A, C, Y and Branc h W-135) conjugate vaccine (MCV4P) TDAP 2013-05-22 Completed [facility] 00:00:00 [facility] Influenza Virus 2013-05-22 Completed [facility] Vaccine (3+ yrs) 00:00:00 [facility] Meningococcal 2013-05-22 Completed [facility] Polysaccharide 00:00:00 [place] [facility] (groups A, C, Y and Branc h W-135) conjugate vaccine (MCV4P) TDAP 2013-05-22 Completed [facility] 00:00:00 [facility] Influenza Virus 2013-05-22 Completed [facility] Vaccine (3+ yrs) 00:00:00 [facility] Meningococcal 2013-05-22 Completed [facility] Polysaccharide 00:00:00 [place] [facility] (groups A, C, Y and Branc h W-135) conjugate vaccine (MCV4P) TDAP 2013-05-22 Completed [facility] 00:00:00 [facility] Influenza Virus 2013-05-22 Completed [facility] Vaccine (3+ yrs) 00:00:00 [facility] Meningococcal 2013-05-22 Completed [facility] Polysaccharide 00:00:00 [place] [facility] (groups A, C, Y and Branc h W-135) conjugate vaccine (MCV4P) TDAP 2013-05-22 Completed [facility] 00:00:00 [facility] Influenza Virus 2013-05-22 Completed [facility] Vaccine (3+ yrs) 00:00:00 [facility] Meningococcal 2013-05-22 Completed [facility] Polysaccharide 00:00:00 [place] [facility] (groups A, C, Y and Branc h W-135) conjugate vaccine (MCV4P) TDAP 2013-05-22 Completed [facility] 00:00:00 [facility] Influenza Virus 2013-05-22 Completed [facility] Vaccine (3+ yrs) 00:00:00 [facility] Meningococcal 2013-05-22 Completed [facility] Polysaccharide 00:00:00 [place] [facility] (groups A, C, Y and Branc h W-135) conjugate vaccine (MCV4P) TDAP 2013-05-22 Completed [facility] 00:00:00 [facility] Influenza Virus 2013-05-22 Completed [facility] Vaccine (3+ yrs) 00:00:00 [facility] Meningococcal 2013-05-22 Completed [facility] Polysaccharide 00:00:00 [place] [facility] (groups A, C, Y and Branc h W-135) conjugate vaccine (MCV4P) TDAP 2013-05-22 Completed [facility] 00:00:00 [facility] Influenza Virus 2013-05-22 Completed [facility] Vaccine (3+ yrs) 00:00:00 [facility] Meningococcal 2013-05-22 Completed [facility] Polysaccharide 00:00:00 [place] [facility] (groups A, C, Y and Branc h W-135) conjugate vaccine (MCV4P) TDAP 2013-05-22 Completed [facility] 00:00:00 [facility] Influenza Virus 2013-05-22 Completed [facility] Vaccine (3+ yrs) 00:00:00 [facility] Meningococcal 2013-05-22 Completed [facility] Polysaccharide 00:00:00 [place] [facility] (groups A, C, Y and Branc h W-135) conjugate vaccine (MCV4P) TDAP 2013-05-22 Completed [facility] 00:00:00 [facility] Influenza Virus 2013-05-22 Completed [facility] Vaccine (3+ yrs) 00:00:00 [facility] Meningococcal 2013-05-22 Completed [facility] Polysaccharide 00:00:00 [place] [facility] (groups A, C, Y and Branc h W-135) conjugate vaccine (MCV4P) TDAP 2013-05-22 Completed [facility] 00:00:00 [facility] Influenza Virus 2013-05-22 Completed [facility] Vaccine (3+ yrs) 00:00:00 [facility] Meningococcal 2013-05-22 Completed [facility] Polysaccharide 00:00:00 [place] [facility] (groups A, C, Y and Branc h W-135) conjugate vaccine (MCV4P) TDAP 2013-05-22 Completed [facility] 00:00:00 [facility] Influenza Virus 2013-05-22 Completed [facility] Vaccine (3+ yrs) 00:00:00 [facility] Meningococcal 2013-05-22 Completed [facility] Polysaccharide 00:00:00 [place] [facility] (groups A, C, Y and Branc h W-135) conjugate vaccine (MCV4P) TDAP 2013-05-22 Completed [facility] 00:00:00 [facility] Influenza Virus 2013-05-22 Completed [facility] Vaccine (3+ yrs) 00:00:00 [facility] Meningococcal 2013-05-22 Completed [facility] Polysaccharide 00:00:00 [place] [facility] (groups A, C, Y and Branc h W-135) conjugate vaccine (MCV4P) TDAP 2013-05-22 Completed [facility] 00:00:00 [facility] Influenza Virus 2013-05-22 Completed [facility] Vaccine (3+ yrs) 00:00:00 [facility] Meningococcal 2013-05-22 Completed [facility] Polysaccharide 00:00:00 [place] [facility] (groups A, C, Y and Branc h W-135) conjugate vaccine (MCV4P) TDAP 2013-05-22 Completed [facility] 00:00:00 [facility] Influenza Virus 2013-05-22 Completed [facility] Vaccine (3+ yrs) 00:00:00 [facility] Meningococcal 2013-05-22 Completed [facility] Polysaccharide 00:00:00 [place] [facility] (groups A, C, Y and Branc h W-135) conjugate vaccine (MCV4P) TDAP 2013-05-22 Completed [facility] 00:00:00 [facility] Influenza Virus 2013-05-22 Completed [facility] Vaccine (3+ yrs) 00:00:00 [facility] Meningococcal 2013-05-22 Completed [facility] Polysaccharide 00:00:00 [place] [facility] (groups A, C, Y and Branc h W-135) conjugate vaccine (MCV4P) TDAP 2013-05-22 Completed [facility] 00:00:00 [facility] Influenza Virus 2013-05-22 Completed [facility] Vaccine (3+ yrs) 00:00:00 [facility] Meningococcal 2013-05-22 Completed [facility] Polysaccharide 00:00:00 [place] [facility] (groups A, C, Y and Branc h W-135) conjugate vaccine (MCV4P) TDAP 2013-05-22 Completed [facility] 00:00:00 [facility] Influenza Virus 2013-05-22 Completed [facility] Vaccine (3+ yrs) 00:00:00 [facility] Meningococcal 2013-05-22 Completed [facility] Polysaccharide 00:00:00 [place] [facility] (groups A, C, Y and Branc h W-135) conjugate vaccine (MCV4P) TDAP 2013-05-22 Completed [facility] 00:00:00 [facility] Influenza Virus 2013-05-22 Completed [facility] Vaccine (3+ yrs) 00:00:00 [facility] Meningococcal 2013-05-22 Completed [facility] Polysaccharide 00:00:00 [place] [facility] (groups A, C, Y and Branc h W-135) conjugate vaccine (MCV4P) TDAP 2013-05-22 Completed [facility] 00:00:00 [facility] Influenza Virus 2013-05-22 Completed [facility] Vaccine (3+ yrs) 00:00:00 [facility] Meningococcal 2013-05-22 Completed [facility] Polysaccharide 00:00:00 [place] [facility] (groups A, C, Y and Branc h W-135) conjugate vaccine (MCV4P) TDAP 2013-05-22 Completed [facility] 00:00:00 [facility] Influenza Virus 2013-05-22 Completed [facility] Vaccine (3+ yrs) 00:00:00 [facility] Meningococcal 2013-05-22 Completed [facility] Polysaccharide 00:00:00 [place] [facility] (groups A, C, Y and Branc h W-135) conjugate vaccine (MCV4P) TDAP 2013-05-22 Completed [facility] 00:00:00 [facility] Influenza Virus 2013-05-22 Completed [facility] Vaccine (3+ yrs) 00:00:00 [facility] Meningococcal 2013-05-22 Completed [facility] Polysaccharide 00:00:00 [place] [facility] (groups A, C, Y and Branc h W-135) conjugate vaccine (MCV4P) TDAP 2013-05-22 Completed [facility] 00:00:00 [facility] Influenza Virus 2013-05-22 Completed [facility] Vaccine (3+ yrs) 00:00:00 [facility] Meningococcal 2013-05-22 Completed [facility] Polysaccharide 00:00:00 [place] [facility] (groups A, C, Y and Branc h W-135) conjugate vaccine (MCV4P) TDAP 2013-05-22 Completed [facility] 00:00:00 [facility] Influenza Virus 2013-05-22 Completed [facility] Vaccine (3+ yrs) 00:00:00 [facility] Meningococcal 2013-05-22 Completed [facility] Polysaccharide 00:00:00 [place] [facility] (groups A, C, Y and Branc h W-135) conjugate vaccine (MCV4P) TDAP 2013-05-22 Completed [facility] 00:00:00 [facility] Influenza Virus 2013-05-22 Completed [facility] Vaccine (3+ yrs) 00:00:00 [facility] Meningococcal 2013-05-22 Completed [facility] Polysaccharide 00:00:00 [place] [facility] (groups A, C, Y and Branc h W-135) conjugate vaccine (MCV4P) TDAP 2013-05-22 Completed [facility] 00:00:00 [facility] Influenza Virus 2012-06-13 Completed [facility] Vaccine 00:00:00 [facility] Influenza Virus 2012-06-13 Completed [facility] Vaccine 00:00:00 [facility] Influenza Virus 2012-06-13 Completed [facility] Vaccine 00:00:00 [facility] Influenza Virus 2012-06-13 Completed [facility] Vaccine 00:00:00 [facility] Influenza Virus 2012-06-13 Completed [facility] Vaccine 00:00:00 [facility] Influenza Virus 2012-06-13 Completed [facility] Vaccine 00:00:00 [facility] Influenza Virus 2012-06-13 Completed [facility] Vaccine 00:00:00 [facility] Influenza Virus 2012-06-13 Completed [facility] Vaccine 00:00:00 [facility] Influenza Virus 2012-06-13 Completed [facility] Vaccine 00:00:00 [facility] Influenza Virus 2012-06-13 Completed [facility] Vaccine 00:00:00 [facility] Influenza Virus 2012-06-13 Completed [facility] Vaccine 00:00:00 [facility] Influenza Virus 2012-06-13 Completed [facility] Vaccine 00:00:00 [facility] Influenza Virus 2012-06-13 Completed [facility] Vaccine 00:00:00 [facility] Influenza Virus 2012-06-13 Completed [facility] Vaccine 00:00:00 [facility] Influenza Virus 2012-06-13 Completed [facility] Vaccine 00:00:00 [facility] Influenza Virus 2012-06-13 Completed [facility] Vaccine 00:00:00 [facility] Influenza Virus 2012-06-13 Completed [facility] Vaccine 00:00:00 [facility] Influenza Virus 2012-06-13 [facility]00 [facility] Influenza Virus 2012-06-13 Completed [facility] 00[facility]00:00 [facility] Influenza Virus 2012-06-13 Completed [facility] Vaccine 00:00:00 [facility] Influenza Virus 2012-06-13 Completed [facility] Vaccine 00:00:00 [facility] Influenza Virus 2012-06-13 Completed [facility] Vaccine 00:00:00 [facility] Influenza Virus 2012-06-13 Completed [facility]ine 00:00:00 [facility] Influenza Virus 2012-06-13 Completed [facility]ine 00:00:00 [facility] Influenza Virus 2012-06-13 Completed [facility] Vaccine 00:00:00 [facility] Influenza Virus 2012-06-13 Completed [facility]ine 00:00:00 [facility] Influenza Virus 2012-06-13 Completed [facility] Vaccine 00:00:00 [facility] Influenza Virus 2012-06-13 Completed [facility] Vaccine 00:00:00 [facility] Influenza Virus 2012-06-13 Completed [facility] Vaccine 00:00:00 [facility] Influenza Virus 2012-06-13 Completed [facility] Vaccine 00:00:00 [facility] Influenza Virus 2012-06-13 Completed [facility] Vaccine 00:00:00 [facility] Influenza Virus 2012-06-13 Completed [facility]ine 00:00:00 [facility] Influenza Virus 2012-06-13 Completed [facility] Vaccine 00:00:00 [facility] Influenza Virus 2012-06-13 Completed [facility] Vaccine 00:00:00 [facility] Influenza Virus 2012-06-13 Completed [facility] Vaccine 00:00:00 [facility] Influenza Virus 2012-06-13 Completed [facility] Vaccine 00:00:00 [facility] Influenza Virus 2012-06-13 Completed [facility] Vaccine 00:00:00 [facility] Influenza Virus 2012-06-13 Completed [facility] Vaccine 00:00:00 [facility] Influenza Virus 2011-05-18 Completed [facility] Vaccine 00:00:00 [facility] Influenza Virus 2011-05-18 Completed [facility] Vaccine 00:00:00 [facility] Influenza Virus 2011-05-18 Completed [facility] Vaccine 00:00:00 [facility] Influenza Virus 2011-05-18 Completed [facility] Vaccine 00:00:00 [facility] Influenza Virus 2011-05-18 Completed [facility] Vaccine 00:00:00 [facility] Influenza Virus 2011-05-18 Completed [facility]ine 00:00:00 [facility] Influenza Virus 2011-05-18 Completed [facility] Vaccine 00:00:00 [facility] Influenza Virus 2011-05-18 Completed [facility] Vaccine 00:00:00 [facility] Influenza Virus 2011-05-18 Completed [facility] Vaccine 00:00:00 [facility] Influenza Virus 2011-05-18 Completed [facility] Vaccine 00:00:00 [facility] Influenza Virus 2011-05-18 Completed [facility] Vaccine 00:00:00 [facility] Influenza Virus 2011-05-18 Completed [facility] Vaccine 00:00:00 [facility] Influenza Virus 2011-05-18 Completed [facility] Vaccine 00:00:00 [facility] Influenza Virus 2011-05-18 Completed [facility] Vaccine 00:00:00 [facility] Influenza Virus 2011-05-18 Completed [facility] Vaccine 00:00:00 [facility] Influenza Virus 2011-05-18 Completed [facility] Vaccine 00:00:00 [facility] Influenza Virus 2011-05-18 Completed [facility] Vaccine 00:00:00 [facility] Influenza Virus 2011-05-18 Completed [facility] Vaccine 00:00:00 [facility] Influenza Virus 2011-05-18 Completed [facility] Vaccine 00:00:00 [facility] Influenza Virus 2011-05-18 Completed [facility] Vaccine 00:00:00 [facility] Influenza Virus 2011-05-18 Completed [facility] Vaccine 00:00:00 [facility] Influenza Virus 2011-05-18 Completed [facility] Vaccine 00:00:00 [facility] Influenza Virus 2011-05-18 Completed [facility] Vaccine 00:00:00 [facility] Influenza Virus 2011-05-18 Completed [facility] Vaccine 00:00:00 [facility] Influenza Virus 2011-05-18 Completed [facility] Vaccine 00:00:00 [facility] Influenza Virus 2011-05-18 Completed [facility] Vaccine 00:00:00 [facility] Influenza Virus 2011-05-18 Completed [facility] Vaccine 00:00:00 [facility] Influenza Virus 2011-05-18 Completed [facility] Vaccine 00:00:00 [facility] Influenza Virus 2011-05-18 Completed [facility] Vaccine 00:00:00 [facility] Influenza Virus 2011-05-18 Completed [facility] Vaccine 00:00:00 [facility] Influenza Virus 2011-05-18 Completed [facility] Vaccine 00:00:00 [facility] Influenza Virus 2011-05-18 Completed [facility] Vaccine 00:00:00 [facility] Influenza Virus 2011-05-18 Completed [facility] Vaccine 00:00:00 [facility] Influenza Virus 2011-05-18 Completed [facility] Vaccine 00:00:00 [facility] Influenza Virus 2011-05-18 Completed [facility] Vaccine 00:00:00 [facility] Influenza Virus 2011-05-18 Completed [facility] Vaccine 00:00:00 [facility] Influenza Virus 2011-05-18 Completed [facility] Vaccine 00:00:00 [facility] Influenza Virus 2011-05-18 Completed [facility] Vaccine 00:00:00 [facility] Influenza Virus 2010-05-26 Completed [facility] Vaccine 00:00:00 [facility] Influenza Virus 2010-05-26 Completed [facility] Vaccine 00:00:00 [facility] Influenza Virus 2010-05-26 Completed [facility] Vaccine 00:00:00 [facility] Influenza Virus 2010-05-26 Completed [facility] Vaccine 00:00:00 [facility] Influenza Virus 2010-05-26 Completed [facility] Vaccine 00:00:00 [facility] Influenza Virus 2010-05-26 Completed [facility] Vaccine 00:00:00 [facility] Influenza Virus 2010-05-26 Completed [facility] Vaccine 00:00:00 [facility] Influenza Virus 2010-05-26 Completed [facility] Vaccine 00:00:00 [facility] Influenza Virus 2010-05-26 Completed [facility] Vaccine 00:00:00 [facility] Influenza Virus 2010-05-26 Completed [facility] Vaccine 00:00:00 [facility] Influenza Virus 2010-05-26 Completed [facility] Vaccine 00:00:00 [facility] Influenza Virus 2010-05-26 Completed [facility] Vaccine 00:00:00 [facility] Influenza Virus 2010-05-26 Completed [facility] Vaccine 00:00:00 [facility] Influenza Virus 2010-05-26 Completed [facility] Vaccine 00:00:00 [facility] Influenza Virus 2010-05-26 Completed [facility] Vaccine 00:00:00 [facility] Influenza Virus 2010-05-26 Completed [facility] Vaccine 00:00:00 [facility] Influenza Virus 2010-05-26 Completed [facility] Vaccine 00:00:00 [facility] Influenza Virus 2010-05-26 Completed [facility] Vaccine 00:00:00 [facility] Influenza Virus 2010-05-26 Completed [facility] Vaccine 00:00:00 [facility] Influenza Virus 2010-05-26 Completed [facility] Vaccine 00:00:00 [facility] Influenza Virus 2010-05-26 Completed [facility] Vaccine 00:00:00 [facility] Influenza Virus 2010-05-26 Completed [facility] Vaccine 00:00:00 [facility] Influenza Virus 2010-05-26 Completed [facility] Vaccine 00:00:00 [facility] Influenza Virus 2010-05-26 Completed [facility] Vaccine 00:00:00 [facility] Influenza Virus 2010-05-26 Completed [facility] Vaccine 00:00:00 [facility] Influenza Virus 2010-05-26 Completed [facility] Vaccine 00:00:00 [facility] Influenza Virus 2010-05-26 Completed [facility] Vaccine 00:00:00 [facility] Influenza Virus 2010-05-26 Completed [facility] Vaccine 00:00:00 [facility] Influenza Virus 2010-05-26 Completed [facility] Vaccine 00:00:00 [facility] Influenza Virus 2010-05-26 Completed [facility] Vaccine 00:00:00 [facility] Influenza Virus 2010-05-26 Completed [facility] Vaccine 00:00:00 [facility] Influenza Virus 2010-05-26 Completed [facility] Vaccine 00:00:00 [facility] Influenza Virus 2010-05-26 Completed [facility] Vaccine 00:00:00 [facility] Influenza Virus 2010-05-26 Completed [facility] Vaccine 00:00:00 [facility] Influenza Virus 2010-05-26 Completed [facility] Vaccine 00:00:00 [facility] Influenza Virus 2010-05-26 Completed [facility] Vaccine 00:00:00 [facility] Influenza Virus 2010-05-26 Completed [facility] Vaccine 00:00:00 [facility] Influenza Virus 2010-05-26 Completed [facility] Vaccine 00:00:00 [facility] Influenza Virus 2009-06-23 Completed [facility] Vaccine 00:00:00 [facility] Influenza Virus 2009-06-23 Completed [facility] Vaccine 00:00:00 [facility] Influenza Virus 2009-06-23 Completed [facility] Vaccine 00:00:00 [facility] Influenza Virus 2009-06-23 Completed [facility] Vaccine 00:00:00 [facility] Influenza Virus 2009-06-23 Completed [facility] Vaccine 00:00:00 [facility] Influenza Virus 2009-06-23 Completed [facility] Vaccine 00:00:00 [facility] Influenza Virus 2009-06-23 Completed [facility] Vaccine 00:00:00 [facility] Influenza Virus 2009-06-23 Completed [facility] Vaccine 00:00:00 [facility] Influenza Virus 2009-06-23 Completed [facility] Vaccine 00:00:00 [facility] Influenza Virus 2009-06-23 Completed [facility] Vaccine 00:00:00 [facility] Influenza Virus 2009-06-23 Completed [facility] Vaccine 00:00:00 [facility] Influenza Virus 2009-06-23 Completed [facility] Vaccine 00:00:00 [facility] Influenza Virus 2009-06-23 Completed [facility] Vaccine 00:00:00 [facility] Influenza Virus 2009-06-23 Completed [facility] Vaccine 00:00:00 [facility] Influenza Virus 2009-06-23 Completed [facility] Vaccine 00:00:00 [facility] Influenza Virus 2009-06-23 Completed [facility] Vaccine 00:00:00 [facility] Influenza Virus 2009-06-23 Completed [facility] Vaccine 00:00:00 [facility] Influenza Virus 2009-06-23 Completed [facility] Vaccine 00:00:00 [facility] Influenza Virus 2009-06-23 Completed [facility] Vaccine 00:00:00 [facility] Influenza Virus 2009-06-23 Completed [facility] Vaccine 00:00:00 [facility] Influenza Virus 2009-06-23 Completed [facility] Vaccine 00:00:00 [facility] Influenza Virus 2009-06-23 Completed [facility] Vaccine 00:00:00 [facility] Influenza Virus 2009-06-23 Completed [facility] Vaccine 00:00:00 [facility] Influenza Virus 2009-06-23 Completed [facility] Vaccine 00:00:00 [facility] Influenza Virus 2009-06-23 Completed [facility] Vaccine 00:00:00 [facility] Influenza Virus 2009-06-23 Completed [facility] Vaccine 00:00:00 [facility] Influenza Virus 2009-06-23 Completed [facility] Vaccine 00:00:00 [facility] Influenza Virus 2009-06-23 Completed [facility] Vaccine 00:00:00 [facility] Influenza Virus 2009-06-23 Completed [facility] Vaccine 00:00:00 [facility] Influenza Virus 2009-06-23 Completed [facility] Vaccine 00:00:00 [facility] Influenza Virus 2009-06-23 Completed [facility] Vaccine 00:00:00 [facility] Influenza Virus 2009-06-23 Completed [facility] Vaccine 00:00:00 [facility] Influenza Virus 2009-06-23 Completed [facility] Vaccine 00:00:00 [facility] Influenza Virus 2009-06-23 Completed [facility] Vaccine 00:00:00 [facility] Influenza Virus 2009-06-23 Completed [facility] Vaccine 00:00:00 [facility] Influenza Virus 2009-06-23 Completed [facility] Vaccine 00:00:00 [facility] Influenza Virus 2009-06-23 Completed [facility] Vaccine 00:00:00 [facility] Influenza Virus 2009-06-23 Completed [facility] Vaccine 00[facility]00:00 [facility] Influenza Virus 2009-05-20 Completed [facility] Vaccine 00:00:00 [facility] Influenza Virus 2009-05-20 Completed [facility] Vaccine 00:00:00 [facility] Influenza Virus 2009-05-20 Completed [facility] Vaccine 00:00:00 [facility] Influenza Virus 2009-05-20 Completed [facility] Vaccine 00:00:00 [facility] Influenza Virus 2009-05-20 Completed [facility] Vaccine 00:00:00 [facility] Influenza Virus 2009-05-20 Completed [facility] Vaccine 00:00:00 [facility] Influenza Virus 2009-05-20 Completed [facility] Vaccine 00:00:00 [facility] Influenza Virus 2009-05-20 Completed [facility] Vaccine 00:00:00 [facility] Influenza Virus 2009-05-20 Completed [facility] Vaccine 00:00:00 [facility] Influenza Virus 2009-05-20 Completed [facility] Vaccine 00:00:00 [facility] Influenza Virus 2009-05-20 Completed [facility] Vaccine 00:00:00 [facility] Influenza Virus 2009-05-20 Completed [facility] Vaccine 00:00:00 [facility] Influenza Virus 2009-05-20 Completed [facility] Vaccine 00:00:00 [facility] Influenza Virus 2009-05-20 Completed [facility] Vaccine 00:00:00 [facility] Influenza Virus 2009-05-20 Completed [facility] Vaccine 00:00:00 [facility] Influenza Virus 2009-05-20 Completed [facility] Vaccine 00:00:00 [facility] Influenza Virus 2009-05-20 Completed [facility] Vaccine 00:00:00 [facility] Influenza Virus 2009-05-20 Completed [facility] Vaccine 00:00:00 [facility] Influenza Virus 2009-05-20 Completed [facility] Vaccine 00:00:00 [facility] Influenza Virus 2009-05-20 Completed [facility] Vaccine 00:00:00 [facility] Influenza Virus 2009-05-20 Completed [facility] Vaccine 00:00:00 [facility] Influenza Virus 2009-05-20 Completed [facility] Vaccine 00:00:00 [facility] Influenza Virus 2009-05-20 Completed [facility] Vaccine 00:00:00 [facility] Influenza Virus 2009-05-20 Completed [facility] Vaccine 00:00:00 [facility] Influenza Virus 2009-05-20 Completed [facility] Vaccine 00:00:00 [facility] Influenza Virus 2009-05-20 Completed [facility] Vaccine 00:00:00 [facility] Influenza Virus 2009-05-20 Completed [facility] Vaccine 00:00:00 [facility] Influenza Virus 2009-05-20 Completed [facility] Vaccine 00:00:00 [facility] Influenza Virus 2009-05-20 Completed [facility] Vaccine 00:00:00 [facility] Influenza Virus 2009-05-20 Completed [facility] Vaccine 00:00:00 [facility] Influenza Virus 2009-05-20 Completed [facility] Vaccine 00:00:00 [facility] Influenza Virus 2009-05-20 Completed [facility] Vaccine 00:00:00 [facility] Influenza Virus 2009-05-20 Completed [facility] Vaccine 00:00:00 [facility] Influenza Virus 2009-05-20 Completed [facility] Vaccine 00:00:00 [facility] Influenza Virus 2009-05-20 Completed [facility] Vaccine 00:00:00 [facility] Influenza Virus 2009-05-20 Completed [facility] Vaccine 00:00:00 [facility] Influenza Virus 2009-05-20 Completed [facility] Vaccine 00:00:00 [facility] Influenza Virus 2009-05-20 Completed [facility] Vaccine 00:00:00 [facility] Influenza Virus 2007-06-01 Completed [facility] Vaccine 00:00:00 [facility] Influenza Virus 2007-06-01 Completed [facility] Vaccine 00:00:00 [facility] Influenza Virus 2007-06-01 Completed [facility] Vaccine 00:00:00 [facility] Influenza Virus 2007-06-01 Completed [facility] Vaccine 00:00:00 [facility] Influenza Virus 2007-06-01 Completed [facility] Vaccine 00:00:00 [facility] Influenza Virus 2007-06-01 Completed [facility] Vaccine 00:00:00 [facility] Influenza Virus 2007-06-01 Completed [facility] Vaccine 00:00:00 [facility] Influenza Virus 2007-06-01 Completed [facility] Vaccine 00:00:00 [facility] Influenza Virus 2007-06-01 Completed [facility] Vaccine 00:00:00 [facility] Influenza Virus 2007-06-01 Completed [facility] Vaccine 00:00:00 [facility] Influenza Virus 2007-06-01 Completed [facility] Vaccine 00:00:00 [facility] Influenza Virus 2007-06-01 Completed [facility] Vaccine 00:00:00 [facility] Influenza Virus 2007-06-01 Completed [facility] Vaccine 00:00:00 [facility] Influenza Virus 2007-06-01 Completed [facility] Vaccine 00:00:00 [facility] Influenza Virus 2007-06-01 Completed [facility] Vaccine 00:00:00 [facility] Influenza Virus 2007-06-01 Completed [facility] Vaccine 00:00:00 [facility] Influenza Virus 2007-06-01 Completed [facility] Vaccine 00:00:00 [facility] Influenza Virus 2007-06-01 Completed [facility] Vaccine 00:00:00 [facility] Influenza Virus 2007-06-01 Completed [facility] Vaccine 00:00:00 [facility] Influenza Virus 2007-06-01 Completed [facility] Vaccine 00:00:00 [facility] Influenza Virus 2007-06-01 Completed [facility] Vaccine 00:00:00 [facility] Influenza Virus 2007-06-01 Completed [facility] Vaccine 00:00:00 [facility] Influenza Virus 2007-06-01 Completed [facility] Vaccine 00:00:00 [facility] Influenza Virus 2007-06-01 Completed [facility] Vaccine 00:00:00 [facility] Influenza Virus 2007-06-01 Completed [facility] Vaccine 00:00:00 [facility] Influenza Virus 2007-06-01 Completed [facility] Vaccine 00:00:00 [facility] Influenza Virus 2007-06-01 Completed [facility] Vaccine 00:00:00 [facility] Influenza Virus 2007-06-01 Completed [facility] Vaccine 00:00:00 [facility] Influenza Virus 2007-06-01 Completed [facility] Vaccine 00:00:00 [facility] Influenza Virus 2007-06-01 Completed [facility] Vaccine 00:00:00 [facility] Influenza Virus 2007-06-01 Completed [facility] Vaccine 00:00:00 [facility] Influenza Virus 2007-06-01 Completed [facility] Vaccine 00:00:00 [facility] Influenza Virus 2007-06-01 Completed [facility] Vaccine 00:00:00 [facility] Influenza Virus 2007-06-01 Completed [facility] Vaccine 00:00:00 [facility] Influenza Virus 2007-06-01 Completed [facility] Vaccine 00:00:00 [facility] Influenza Virus 2007-06-01 Completed [facility] Vaccine 00:00:00 [facility] Influenza Virus 2007-06-01 Completed [facility] Vaccine 00:00:00 [facility] Influenza Virus 2007-06-01 Completed [facility] Vaccine 00:00:00 [facility] DTAP 2006-05-24 Completed [facility] 00:00:00 [facility] Proquad 2006-05-24 Completed [facility] of (MMR/VARICELLA) 00:00:00 [facility] Polio (IPV/OPV) 2006-05-24 Completed [facility] 00:00:00 [facility] DTAP 2006-05-24 Completed [facility] 00:00:00 [facility] Proquad 2006-05-24 Completed [facility] of (MMR/VARICELLA) 00:00:00 [facility] Polio (IPV/OPV) 2006-05-24 Completed [facility] 00:00:00 [facility] DTAP 2006-05-24 Completed [facility] 00:00:00 [facility] Proquad 2006-05-24 Completed [facility] (MMR/VARICELLA) 00:00:00 [facility] Polio (IPV/OPV) 2006-05-24 Completed [facility] 00:00:00 [facility] DTAP 2006-05-24 Completed [facility] 00:00:00 [facility] Proquad 2006-05-24 Completed [facility] (MMR/VARICELLA) 00:00:00 [facility] Polio (IPV/OPV) 2006-05-24 Completed [facility] 00:00:00 [facility] DTAP 2006-05-24 Completed [facility] 00:00:00 [facility] Proquad 2006-05-24 Completed [facility] (MMR/VARICELLA) 00:00:00 [facility] Polio (IPV/OPV) 2006-05-24 Completed [facility] 00:00:00 [facility] DTAP 2006-05-24 Completed [facility] 00:00:00 [facility] Proquad 2006-05-24 Completed [facility] (MMR/VARICELLA) 00:00:00 [facility] Polio (IPV/OPV) 2006-05-24 Completed [facility] 00:00:00 [facility] DTAP 2006-05-24 Completed [facility] 00:00:00 [facility] Proquad 2006-05-24 Completed [facility] (MMR/VARICELLA) 00:00:00 [facility] Polio (IPV/OPV) 2006-05-24 Completed [facility] 00:00:00 [facility] DTAP 2006-05-24 Completed [facility] 00:00:00 [facility] Proquad 2006-05-24 Completed [facility] of (MMR/VARICELLA) 00:00:00 [facility] Polio (IPV/OPV) 2006-05-24 Completed [facility] 00:00:00 [facility] DTAP 2006-05-24 Completed [facility] 00:00:00 [facility] Proquad 2006-05-24 Completed [facility] (MMR/VARICELLA) 00:00:00 [facility] Polio (IPV/OPV) 2006-05-24 Completed [facility] 00:00:00 [facility] DTAP 2006-05-24 Completed [facility] 00:00:00 [facility] Proquad 2006-05-24 Completed [facility] (MMR/VARICELLA) 00:00:00 [facility] Polio (IPV/OPV) 2006-05-24 Completed [facility] 00:00:00 [facility] DTAP 2006-05-24 Completed [facility] 00:00:00 [facility] Proquad 2006-05-24 Completed [facility] of (MMR/VARICELLA) 00:00:00 [facility] Polio (IPV/OPV) 2006-05-24 Completed [facility] 00:00:00 [facility] DTAP 2006-05-24 Completed [facility] 00:00:00 [facility] Proquad 2006-05-24 Completed [facility] (MMR/VARICELLA) 00:00:00 [facility] Polio (IPV/OPV) 2006-05-24 Completed [facility] 00:00:00 [facility] DTAP 2006-05-24 Completed [facility] 00:00:00 [facility] Proquad 2006-05-24 Completed [facility] (MMR/VARICELLA) 00:00:00 [facility] Polio (IPV/OPV) 2006-05-24 Completed [facility] 00:00:00 [facility] DTAP 2006-05-24 Completed [facility] of 00:00:00 [facility] Proquad 2006-05-24 Completed [facility] of (MMR/VARICELLA) 00:00:00 [facility] Polio (IPV/OPV) 2006-05-24 Completed [facility] 00:00:00 [facility] DTAP 2006-05-24 Completed [facility] of 00:00:00 [facility] Proquad 2006-05-24 Completed [facility] of (MMR/VARICELLA) 00:00:00 [facility] Polio (IPV/OPV) 2006-05-24 Completed [facility] 00:00:00 [facility] DTAP 2006-05-24 Completed [facility] 00:00:00 [facility] Proquad 2006-05-24 Completed [facility] of (MMR/VARICELLA) 00:00:00 [facility] Polio (IPV/OPV) 2006-05-24 Completed [facility] 00:00:00 [facility] DTAP 2006-05-24 Completed [facility] of 00:00:00 [facility] Proquad 2006-05-24 Completed [facility] (MMR/VARICELLA) 00:00:00 [facility] Polio (IPV/OPV) 2006-05-24 Completed [facility] 00:00:00 [facility] DTAP 2006-05-24 Completed [facility] of 00:00:00 [facility] Proquad 2006-05-24 Completed [facility] of (MMR/VARICELLA) 00:00:00 [facility] Polio (IPV/OPV) 2006-05-24 Completed [facility] 00:00:00 [facility] DTAP 2006-05-24 Completed [facility] 00:00:00 [facility] Proquad 2006-05-24 Completed [facility] of (MMR/VARICELLA) 00:00:00 [facility] Polio (IPV/OPV) 2006-05-24 Completed [facility] 00:00:00 [facility] DTAP 2006-05-24 Completed [facility] 00:00:00 [facility] Proquad 2006-05-24 Completed [facility] of (MMR/VARICELLA) 00:00:00 [facility] Polio (IPV/OPV) 2006-05-24 Completed [facility] 00:00:00 [facility] DTAP 2006-05-24 Completed [facility] of 00:00:00 [facility] Proquad 2006-05-24 Completed [facility] of (MMR/VARICELLA) 00:00:00 [facility] Polio (IPV/OPV) 2006-05-24 Completed [facility] 00:00:00 [facility] DTAP 2006-05-24 Completed [facility] of 00:00:00 [facility] Proquad 2006-05-24 Completed [facility] of (MMR/VARICELLA) 00:00:00 [facility] Polio (IPV/OPV) 2006-05-24 Completed [facility] 00:00:00 [facility] DTAP 2006-05-24 Completed [facility] of 00:00:00 [facility] Proquad 2006-05-24 Completed [facility] of (MMR/VARICELLA) 00:00:00 [facility] Polio (IPV/OPV) 2006-05-24 Completed [facility] 00:00:00 [facility] DTAP 2006-05-24 Completed [facility] of 00:00:00 [facility] Proquad 2006-05-24 Completed [facility] of (MMR/VARICELLA) 00:00:00 [facility] Polio (IPV/OPV) 2006-05-24 Completed [facility] 00:00:00 [facility] DTAP 2006-05-24 Completed [facility] of 00:00:00 [facility] Proquad 2006-05-24 Completed [facility] of (MMR/VARICELLA) 00:00:00 [facility] Polio (IPV/OPV) 2006-05-24 Completed [facility] 00:00:00 [facility] DTAP 2006-05-24 Completed [facility] of 00:00:00 [facility] Proquad 2006-05-24 Completed [facility] of (MMR/VARICELLA) 00:00:00 [facility] Polio (IPV/OPV) 2006-05-24 Completed [facility] 00:00:00 [facility] DTAP 2006-05-24 Completed [facility] of 00:00:00 [facility] Proquad 2006-05-24 Completed [facility] of (MMR/VARICELLA) 00:00:00 [facility] Polio (IPV/OPV) 2006-05-24 Completed [facility] 00:00:00 [facility] DTAP 2006-05-24 Completed [facility] of 00:00:00 [facility] Proquad 2006-05-24 Completed [facility] of (MMR/VARICELLA) 00:00:00 [facility] Polio (IPV/OPV) 2006-05-24 Completed [facility] 00:00:00 [facility] DTAP 2006-05-24 Completed [facility] of 00:00:00 [facility] Proquad 2006-05-24 Completed [facility] of (MMR/VARICELLA) 00:00:00 [facility] Polio (IPV/OPV) 2006-05-24 Completed [facility] 00:00:00 [facility] DTAP 2006-05-24 Completed [facility] of 00:00:00 [facility] Proquad 2006-05-24 Completed [facility] of (MMR/VARICELLA) 00:00:00 [facility] Polio (IPV/OPV) 2006-05-24 Completed [facility] 00:00:00 [facility] DTAP 2006-05-24 Completed [facility] of 00:00:00 [facility] Proquad 2006-05-24 Completed [facility] of (MMR/VARICELLA) 00:00:00 [facility] Polio (IPV/OPV) 2006-05-24 Completed [facility] 00:00:00 [facility] DTAP 2006-05-24 Completed [facility] of 00:00:00 [facility] Proquad 2006-05-24 Completed [facility] of (MMR/VARICELLA) 00:00:00 [facility] Polio (IPV/OPV) 2006-05-24 Completed [facility] 00:00:00 [facility] DTAP 2006-05-24 Completed [facility] 00:00:00 [facility] Proquad 2006-05-24 Completed [facility] of (MMR/VARICELLA) 00:00:00 [facility] Polio (IPV/OPV) 2006-05-24 Completed [facility] 00:00:00 [facility] DTAP 2006-05-24 Completed [facility] of 00:00:00 [facility] Proquad 2006-05-24 Completed [facility] of (MMR/VARICELLA) 00:00:00 [facility] Polio (IPV/OPV) 2006-05-24 Completed [facility] 00:00:00 [facility] DTAP 2006-05-24 Completed [facility] 00:00:00 [facility] Proquad 2006-05-24 Completed [facility] of (MMR/VARICELLA) 00:00:00 [facility] Polio (IPV/OPV) 2006-05-24 Completed [facility] 00:00:00 [facility] DTAP 2006-05-24 Completed [facility] of 00:00:00 [facility] Proquad 2006-05-24 Completed [facility] of (MMR/VARICELLA) 00:00:00 [facility] Polio (IPV/OPV) 2006-05-24 Completed [facility] 00:00:00 [facility] DTAP 2006-05-24 Completed [facility] of 00:00:00 [facility] Proquad 2006-05-24 Completed [facility] of (MMR/VARICELLA) 00:00:00 [facility] Polio (IPV/OPV) 2006-05-24 Completed [facility] 00:00:00 [facility] DTAP 2006-05-24 Completed [facility] 00:00:00 [facility] Proquad 2006-05-24 Completed [facility] of (MMR/VARICELLA) 00:00:00 [facility] Polio (IPV/OPV) 2006-05-24 Completed [facility] 00:00:00 [facility] HEPATITIS A 2005-05-19 Completed [facility] of 00:00:00 [facility] Influenza Virus 2005-05-19 Completed [facility] Vaccine 00:00:00 [facility] HEPATITIS A 2005-05-19 Completed [facility] of 00:00:00 [facility] Influenza Virus 2005-05-19 Completed [facility] Vaccine 00:00:00 [facility] HEPATITIS A 2005-05-19 Completed [facility] of 00:00:00 [facility] Influenza Virus 2005-05-19 Completed [facility] Vaccine 00:00:00 [facility] HEPATITIS A 2005-05-19 Completed [facility] of 00:00:00 [facility] Influenza Virus 2005-05-19 Completed [facility] Vaccine 00:00:00 [facility] HEPATITIS A 2005-05-19 Completed [facility] of 00:00:00 [facility] Influenza Virus 2005-05-19 Completed [facility] Vaccine 00:00:00 [facility] HEPATITIS A 2005-05-19 Completed [facility] of 00:00:00 [facility] Influenza Virus 2005-05-19 Completed [facility] Vaccine 00:00:00 [facility] HEPATITIS A 2005-05-19 Completed [facility] of 00:00:00 [facility] Influenza Virus 2005-05-19 Completed [facility] Vaccine 00:00:00 [facility] HEPATITIS A 2005-05-19 Completed [facility] 00:00:00 [facility] Influenza Virus 2005-05-19 Completed [facility] Vaccine 00:00:00 [facility] HEPATITIS A 2005-05-19 Completed [facility] of 00:00:00 [facility] Influenza Virus 2005-05-19 Completed [facility] Vaccine 00:00:00 [facility] HEPATITIS A 2005-05-19 Completed [facility] of 00:00:00 [facility] Influenza Virus 2005-05-19 Completed [facility] Vaccine 00:00:00 [facility] HEPATITIS A 2005-05-19 Completed [facility] of 00:00:00 [facility] Influenza Virus 2005-05-19 Completed [facility] Vaccine 00:00:00 [facility] HEPATITIS A 2005-05-19 Completed [facility] of 00:00:00 [facility] Influenza Virus 2005-05-19 Completed [facility] Vaccine 00:00:00 [facility] HEPATITIS A 2005-05-19 Completed [facility] of 00:00:00 [facility] Influenza Virus 2005-05-19 Completed [facility] Vaccine 00:00:00 [facility] HEPATITIS A 2005-05-19 Completed [facility] of 00:00:00 [facility] Influenza Virus 2005-05-19 Completed [facility] Vaccine 00:00:00 [facility] HEPATITIS A 2005-05-19 Completed [facility] of 00:00:00 [facility] Influenza Virus 2005-05-19 Completed [facility] Vaccine 00:00:00 [facility] HEPATITIS A 2005-05-19 Completed [facility] of 00:00:00 [facility] Influenza Virus 2005-05-19 Completed [facility] Vaccine 00:00:00 [facility] HEPATITIS A 2005-05-19 Completed [facility] 00:00:00 [facility] Influenza Virus 2005-05-19 Completed [facility] Vaccine 00:00:00 [facility] HEPATITIS A 2005-05-19 Completed [facility] of 00:00:00 [facility] Influenza Virus 2005-05-19 Completed [facility] Vaccine 00:00:00 [facility] HEPATITIS A 2005-05-19 Completed [facility] of 00:00:00 [facility] Influenza Virus 2005-05-19 Completed [facility] Vaccine 00:00:00 [facility] HEPATITIS A 2005-05-19 Completed [facility] 00:00:00 [facility] Influenza Virus 2005-05-19 Completed [facility] Vaccine 00:00:00 [facility] HEPATITIS A 2005-05-19 Completed [facility] of 00:00:00 [facility] Influenza Virus 2005-05-19 Completed [facility] Vaccine 00:00:00 [facility] HEPATITIS A 2005-05-19 Completed [facility] of 00:00:00 [facility] Influenza Virus 2005-05-19 Completed [facility] Vaccine 00:00:00 [facility] HEPATITIS A 2005-05-19 Completed [facility] of 00:00:00 [facility] Influenza Virus 2005-05-19 Completed [facility] Vaccine 00:00:00 [facility] HEPATITIS A 2005-05-19 Completed [facility] of 00:00:00 [facility] Influenza Virus 2005-05-19 Completed [facility] Vaccine 00:00:00 [facility] HEPATITIS A 2005-05-19 Completed [facility] of 00:00:00 [facility] Influenza Virus 2005-05-19 Completed [facility] Vaccine 00:00:00 [facility] HEPATITIS A 2005-05-19 Completed [facility] 00:00:00 [facility] Influenza Virus 2005-05-19 Completed [facility] Vaccine 00:00:00 [facility] HEPATITIS A 2005-05-19 Completed [facility] of 00:00:00 [facility] Influenza Virus 2005-05-19 Completed [facility] Vaccine 00:00:00 [facility] HEPATITIS A 2005-05-19 Completed [facility] of 00:00:00 [facility] Influenza Virus 2005-05-19 Completed [facility] Vaccine 00:00:00 [facility] HEPATITIS A 2005-05-19 Completed [facility] of 00:00:00 [facility] Influenza Virus 2005-05-19 Completed [facility] Vaccine 00:00:00 [facility] HEPATITIS A 2005-05-19 Completed [facility] of 00:00:00 [facility] Influenza Virus 2005-05-19 Completed [facility] Vaccine 00:00:00 [facility] HEPATITIS A 2005-05-19 Completed [facility] of 00:00:00 [facility] Influenza Virus 2005-05-19 Completed [facility] Vaccine 00:00:00 [facility] HEPATITIS A 2005-05-19 Completed [facility] of 00:00:00 [facility] Influenza Virus 2005-05-19 Completed [facility] Vaccine 00:00:00 [facility] HEPATITIS A 2005-05-19 Completed [facility] of 00:00:00 [facility] Influenza Virus 2005-05-19 Completed [facility] Vaccine 00:00:00 [facility] HEPATITIS A 2005-05-19 Completed [facility] of 00:00:00 [facility] Influenza Virus 2005-05-19 Completed [facility] Vaccine 00:00:00 [facility] HEPATITIS A 2005-05-19 Completed [facility] 00:00:00 [facility] Influenza Virus 2005-05-19 Completed [facility] Vaccine 00:00:00 [facility] HEPATITIS A 2005-05-19 Completed [facility] of 00:00:00 [facility] Influenza Virus 2005-05-19 Completed [facility] Vaccine 00:00:00 [facility] HEPATITIS A 2005-05-19 Completed [facility] of 00:00:00 [facility] Influenza Virus 2005-05-19 Completed [facility] Vaccine 00:00:00 [facility] HEPATITIS A 2005-05-19 Completed [facility] 00:00:00 [facility] Influenza Virus 2005-05-19 Completed [facility] Vaccine 00:00:00 [facility] HEPATITIS A 2004-05-17 Completed [facility] 00:00:00 [facility] HEPATITIS A 2004-05-17 Completed [facility] 00:00:00 [facility] HEPATITIS A 2004-05-17 Completed [facility] 00:00:00 [facility] HEPATITIS A 2004-05-17 Completed [facility] 00:00:00 [facility] HEPATITIS A 2004-05-17 Completed [facility] 00:00:00 [facility] HEPATITIS A 2004-05-17 Completed [facility] 00:00:00 [facility] HEPATITIS A 2004-05-17 Completed [facility] 00:00:00 [facility] HEPATITIS A 2004-05-17 Completed [facility] 00:00:00 [facility] HEPATITIS A 2004-05-17 Completed [facility] 00:00:00 [facility] HEPATITIS A 2004-05-17 Completed [facility] 00:00:00 [facility] HEPATITIS A 2004-05-17 Completed [facility] 00:00:00 [facility] HEPATITIS A 2004-05-17 Completed [facility] 00:00:00 [facility] HEPATITIS A 2004-05-17 Completed [facility] 00:00:00 [facility] HEPATITIS A 2004-05-17 Completed [facility] 00:00:00 [facility] HEPATITIS A 2004-05-17 Completed [facility] 00:00:00 [facility] HEPATITIS A 2004-05-17 Completed [facility] 00:00:00 [facility] HEPATITIS A 2004-05-17 Completed [facility] 00:00:00 [facility] HEPATITIS A 2004-05-17 Completed [facility] 00:00:00 [facility] HEPATITIS A 2004-05-17 Completed [facility] 00:00:00 [facility] HEPATITIS A 2004-05-17 Completed [facility] 00:00:00 [facility] HEPATITIS A 2004-05-17 Completed [facility] 00:00:00 [facility] HEPATITIS A 2004-05-17 Completed [facility] 00:00:00 [facility] HEPATITIS A 2004-05-17 Completed [facility] 00:00:00 [facility] HEPATITIS A 2004-05-17 Completed [facility] 00:00:00 [facility] HEPATITIS A 2004-05-17 Completed [facility] 00:00:00 [facility] HEPATITIS A 2004-05-17 Completed [facility] 00:00:00 [facility] HEPATITIS A 2004-05-17 Completed [facility] 00:00:00 [facility] HEPATITIS A 2004-05-17 Completed [facility] 00:00:00 [facility] HEPATITIS A 2004-05-17 Completed [facility] 00:00:00 [facility] HEPATITIS A 2004-05-17 Completed [facility] 00:00:00 [facility] HEPATITIS A 2004-05-17 Completed [facility] 00:00:00 [facility] HEPATITIS A 2004-05-17 Completed [facility] 00:00:00 [facility] HEPATITIS A 2004-05-17 Completed [facility] 00:00:00 [facility] HEPATITIS A 2004-05-17 Completed [facility] 00:00:00 [facility] HEPATITIS A 2004-05-17 Completed [facility] 00:00:00 [facility] HEPATITIS A 2004-05-17 Completed [facility] 00:00:00 [facility] HEPATITIS A 2004-05-17 Completed [facility] 00:00:00 [facility] HEPATITIS A 2004-05-17 Completed [facility] 00:00:00 [facility] Polio (IPV/OPV) 2003-08-21 Completed [facility] 00:00:00 [facility] Polio (IPV/OPV) 2003-08-21 Completed [facility] 00:00:00 [facility] Polio (IPV/OPV) 2003-08-21 Completed [facility] 00:00:00 [facility] Polio (IPV/OPV) 2003-08-21 Completed [facility] 00:00:00 [facility] Polio (IPV/OPV) 2003-08-21 Completed [facility] 00:00:00 [facility] Polio (IPV/OPV) 2003-08-21 Completed [facility] 00:00:00 [facility] Polio (IPV/OPV) 2003-08-21 Completed [facility] 00:00:00 [facility] Polio (IPV/OPV) 2003-08-21 Completed [facility] 00:00:00 [facility] Polio (IPV/OPV) 2003-08-21 Completed [facility] 00:00:00 [facility] Polio (IPV/OPV) 2003-08-21 Completed [facility] 00:00:00 [facility] Polio (IPV/OPV) 2003-08-21 Completed [facility] 00:00:00 [facility] Polio (IPV/OPV) 2003-08-21 Completed [facility] 00:00:00 [facility] Polio (IPV/OPV) 2003-08-21 Completed [facility] 00:00:00 [facility] Polio (IPV/OPV) 2003-08-21 Completed [facility] 00:00:00 [facility] Polio (IPV/OPV) 2003-08-21 Completed [facility] 00:00:00 [facility] Polio (IPV/OPV) 2003-08-21 Completed [facility] 00:00:00 [facility] Polio (IPV/OPV) 2003-08-21 Completed [facility] 00:00:00 [facility] Polio (IPV/OPV) 2003-08-21 Completed [facility] 00:00:00 [facility] Polio (IPV/OPV) 2003-08-21 Completed [facility] 00:00:00 [facility] Polio (IPV/OPV) 2003-08-21 Completed [facility] 00:00:00 [facility] Polio (IPV/OPV) 2003-08-21 Completed [facility] 00:00:00 [facility] Polio (IPV/OPV) 2003-08-21 Completed [facility] 00:00:00 [facility] Polio (IPV/OPV) 2003-08-21 Completed [facility] 00:00:00 [facility] Polio (IPV/OPV) 2003-08-21 Completed [facility] 00:00:00 [facility] HIB 4 Dose Schedule 2003-05-22 Completed Unive rsity of 00:00:00 [facility] MMR 2003-05-22 Completed [facility] 00:00:00 [facility] Pneumococcal 7 2003-05-22 Completed [facility] of Conjugate, PCV7 00:00:00 [place] [facility] (Prevnar7[facility] Varicella 2003-05-22 Completed [facility] (varivax)(chicken 00:00:00 [place] [facility] pox) [facility] HIB 4 Dose Schedule 2003-05-22 Completed Unive rsity of 00:00:00 [facility] MMR 2003-05-22 Completed [facility] 00:00:00 [facility] Pneumococcal 7 2003-05-22 Completed [facility] Conjugate, PCV7 00:00:00 [place] [facility] (Prevnar7) [facility] Varicella 2003-05-22 Completed [facility] (varivax)(chicken 00:00:00 [place] [facility] pox) [facility] HIB 4 Dose Schedule 2003-05-22 Completed Unive rsity of 00:00:00 [facility] MMR 2003-05-22 Completed [facility] 00:00:00 [facility] Pneumococcal 7 2003-05-22 Completed [facility] Conjugate, PCV7 00:00:00 [place] [facility] (Prevnar7) [facility] Varicella 2003-05-22 Completed [facility] (varivax)(chicken 00:00:00 [place] [facility] pox) [facility] HIB 4 Dose Schedule 2003-05-22 Completed Unive rsity of 00:00:00 [facility] MMR 2003-05-22 Completed [facility] 00:00:00 [facility] Pneumococcal 7 2003-05-22 Completed [facility] Conjugate, PCV7 00:00:00 [place] [facility] (Prevnar7) [facility] Varicella 2003-05-22 Completed [facility] (varivax)(chicken 00:00:00 [place] [facility] pox) [facility] HIB 4 Dose Schedule 2003-05-22 Completed Unive rsity of 00:00:00 [facility] MMR 2003-05-22 Completed [facility] 00:00:00 [facility] Pneumococcal 7 2003-05-22 Completed [facility] of Conjugate, PCV7 00:00:00 [place] [facility] (Prevnar7[facility] Varicella 2003-05-22 Completed [facility] (varivax)(chicken 00:00:00 [place] [facility] pox) [facility] HIB 4 Dose Schedule 2003-05-22 Completed Unive rsity of 00:00:00 [facility] MMR 2003-05-22 Completed [facility] 00:00:00 [facility] Pneumococcal 7 2003-05-22 Completed [facility] of Conjugate, PCV7 00:00:00 [place] [facility] (Prevnar7[facility] Varicella 2003-05-22 Completed [facility] (varivax)(chicken 00:00:00 [place] [facility] pox) [facility] HIB 4 Dose Schedule 2003-05-22 Completed Unive rsity of 00:00:00 [facility] MMR 2003-05-22 Completed [facility] 00:00:00 [facility] Pneumococcal 7 2003-05-22 Completed [facility] of Conjugate, PCV7 00:00:00 [place] [facility] (Prevnar[facility] Varicella 2003-05-22 Completed [facility] (varivax)(chicken 00:00:00 [place] [facility] pox) [facility] HIB 4 Dose Schedule 2003-05-22 Completed Unive rsity of 00:00:00 [facility] MMR 2003-05-22 Completed [facility] 00:00:00 [facility] Pneumococcal 7 2003-05-22 Completed [facility] of Conjugate, PCV7 00:00:00 [place] [facility] (Prevnar7) [facility] Varicella 2003-05-22 Completed [facility] (varivax)(chicken 00:00:00 [place] [facility] pox) [facility] HIB 4 Dose Schedule 2003-05-22 Completed Unive rsity of 00:00:00 [facility] MMR 2003-05-22 Completed [facility] 00:00:00 [facility] Pneumococcal 7 2003-05-22 Completed [facility] of Conjugate, PCV7 00:00:00 [place] [facility] (Prevnar7) [facility] Varicella 2003-05-22 Completed [facility] (varivax)(chicken 00:00:00 [place] [facility] pox) [facility] HIB 4 Dose Schedule 2003-05-22 Completed Unive rsity of 00:00:00 [facility] MMR 2003-05-22 Completed [facility] 00:00:00 [facility] Pneumococcal 7 2003-05-22 Completed [facility] of Conjugate, PCV7 00:00:00 [place] [facility] (Prevnar7[facility] Varicella 2003-05-22 Completed [facility] (varivax)(chicken 00:00:00 [place] [facility] pox) [facility] HIB 4 Dose Schedule 2003-05-22 Completed Unive rsity of 00:00:00 [facility] MMR 2003-05-22 Completed [facility] 00:00:00 [facility] Pneumococcal 7 2003-05-22 Completed [facility] of Conjugate, PCV7 00:00:00 [place] [facility] (Prevnar[facility] Varicella 2003-05-22 Completed [facility] (varivax)(chicken 00:00:00 [place] [facility] pox) [facility] HIB 4 Dose Schedule 2003-05-22 Completed Unive rsity of 00:00:00 [facility] MMR 2003-05-22 Completed [facility] 00:00:00 [facility] Pneumococcal 7 2003-05-22 Completed [facility] of Conjugate, PCV7 00:00:00 [place] [facility] (Prevnar7) [facility] Varicella 2003-05-22 Completed [facility] (varivax)(chicken 00:00:00 [place] [facility] pox) [facility] HIB 4 Dose Schedule 2003-05-22 Completed Unive rsity of 00:00:00 [facility] MMR 2003-05-22 Completed [facility] 00:00:00 [facility] Pneumococcal 7 2003-05-22 Completed [facility] of Conjugate, PCV7 00:00:00 [place] [facility] (Prevnar7) [facility] Varicella 2003-05-22 Completed [facility] (varivax)(chicken 00:00:00 [place] [facility] pox) [facility] HIB 4 Dose Schedule 2003-05-22 Completed Unive rsity of 00:00:00 [facility] MMR 2003-05-22 Completed [facility] 00:00:00 [facility] Pneumococcal 7 2003-05-22 Completed [facility] of Conjugate, PCV7 00:00:00 [place] [facility] (Prevnar7) [facility] Varicella 2003-05-22 Completed [facility] (varivax)(chicken 00:00:00 [place] [facility] pox) [facility] HIB 4 Dose Schedule 2003-05-22 Completed Unive rsity of 00:00:00 [facility] MMR 2003-05-22 Completed [facility] of 00:00:00 [facility] Pneumococcal 7 2003-05-22 Completed [facility] of Conjugate, PCV7 00:00:00 [place] [facility] (Prevnar7) [facility] Varicella 2003-05-22 Completed [facility] of (varivax)(chicken 00:00:00 [facility] edical pox) Branch HIB 4 Dose Schedule 2003-05-22 Completed Unive rsity of 00:00:00 [facility] MMR 2003-05-22 Completed [facility] of 00:00:00 [facility] Pneumococcal 7 2003-05-22 Completed [facility] of Conjugate, PCV7 00:00:00 [place] [facility] (Prevnar7) [facility] Varicella 2003-05-22 Completed [facility] of (varivax)(chicken 00:00:00 [facility] edical pox) Branch HIB 4 Dose Schedule 2003-05-22 Completed Unive rsity of 00:00:00 [facility] MMR 2003-05-22 Completed [facility] of 00:00:00 [facility] Pneumococcal 7 2003-05-22 Completed [facility] of Conjugate, PCV7 00:00:00 [place] [facility] (Prevnar7) [facility] Varicella 2003-05-22 Completed [facility] of (varivax)(chicken 00:00:00 [facility] edical pox) Branch HIB 4 Dose Schedule 2003-05-22 Completed Unive rsity of 00:00:00 [facility] MMR 2003-05-22 Completed [facility] 00:00:00 [facility] Pneumococcal 7 2003-05-22 Completed [facility] of Conjugate, PCV7 00:00:00 [place] [facility] (Prevnar7) [facility] Varicella 2003-05-22 Completed [facility] (varivax)(chicken 00:00:00 [place] [facility] pox) [facility] HIB 4 Dose Schedule 2003-05-22 Completed Unive rsity of 00:00:00 [facility] MMR 2003-05-22 Completed [facility] 00:00:00 [facility] Pneumococcal 7 2003-05-22 Completed [facility] of Conjugate, PCV7 00:00:00 [place] [facility] (Prevnar7) [facility] Varicella 2003-05-22 Completed [facility] (varivax)(chicken 00:00:00 [place] [facility] pox) [facility] HIB 4 Dose Schedule 2003-05-22 Completed Unive rsity of 00:00:00 [facility] MMR 2003-05-22 Completed [facility] 00:00:00 [facility] Pneumococcal 7 2003-05-22 Completed [facility] Conjugate, PCV7 00:00:00 [place] [facility] (Prevnar7) [facility] Varicella 2003-05-22 Completed [facility] (varivax)(chicken 00:00:00 [place] [facility] pox) [facility] HIB 4 Dose Schedule 2003-05-22 Completed Unive rsity of 00:00:00 [facility] MMR 2003-05-22 Completed [facility] 00:00:00 [facility] Pneumococcal 7 2003-05-22 Completed [facility] Conjugate, PCV7 00:00:00 [place] [facility] (Prevnar7) [facility] Varicella 2003-05-22 Completed [facility] (varivax)(chicken 00:00:00 [place] [facility] pox) [facility] HIB 4 Dose Schedule 2003-05-22 Completed Unive rsity of 00:00:00 [facility] MMR 2003-05-22 Completed [facility] 00:00:00 [facility] Pneumococcal 7 2003-05-22 Completed [facility] Conjugate, PCV7 00:00:00 [place] [facility] (Prevnar7) [facility] Varicella 2003-05-22 Completed [facility] (varivax)(chicken 00:00:00 [place] [facility] pox) [facility] HIB 4 Dose Schedule 2003-05-22 Completed Unive rsity of 00:00:00 [facility] MMR 2003-05-22 Completed [facility] 00:00:00 [facility] Pneumococcal 7 2003-05-22 Completed [facility] Conjugate, PCV7 00:00:00 [place] [facility] (Prevnar7) [facility] Varicella 2003-05-22 Completed [facility] (varivax)(chicken 00:00:00 [place] [facility] pox) [facility] HIB 4 Dose Schedule 2003-05-22 Completed Unive rsity of 00:00:00 [facility] MMR 2003-05-22 Completed [facility] 00:00:00 [facility] Pneumococcal 7 2003-05-22 Completed [facility] Conjugate, PCV7 00:00:00 [place] [facility] (Prevnar7) [facility] Varicella 2003-05-22 Completed [facility] (varivax)(chicken 00:00:00 [facility] edical pox) Branch DTAP 2003-01-01 Completed [facility] 00:00:00 [facility] HIB 4 Dose Schedule 2003-01-01 Completed Unive rsity of 00:00:00 [facility] Hep B, Adol or Pedi 2003-01-01 Completed Unive rsity of Dosage 00:00:00 [facility] Pneumococcal 7 2003-01-01 Completed [facility] Conjugate, PCV7 00:00:00 [place] [facility] (Prevnar7) [facility] DTAP 2003-01-01 Completed [facility] 00:00:00 [facility] HIB 4 Dose Schedule 2003-01-01 Completed Unive rsity of 00:00:00 [facility] Hep B, Adol or Pedi 2003-01-01 Completed Unive rsity of Dosage 00:00:00 [facility] Pneumococcal 7 2003-01-01 Completed [facility] Conjugate, PCV7 00:00:00 [place] [facility] (Prevnar7) [facility] DTAP 2003-01-01 Completed [facility] 00:00:00 [facility] HIB 4 Dose Schedule 2003-01-01 Completed Unive rsity of 00:00:00 [facility] Hep B, Adol or Pedi 2003-01-01 Completed Unive rsity of Dosage 00:00:00 [facility] Pneumococcal 7 2003-01-01 Completed [facility] Conjugate, PCV7 00:00:00 [place] [facility] (Prevnar7) [facility] DTAP 2003-01-01 Completed [facility] 00:00:00 [facility] HIB 4 Dose Schedule 2003-01-01 Completed Unive rsity of 00:00:00 [facility] Hep B, Adol or Pedi 2003-01-01 Completed Unive rsity of Dosage 00:00:00 [facility] Pneumococcal 7 2003-01-01 Completed [facility] of Conjugate, PCV7 00:00:00 [place] [facility] (Prevnar7) [facility] DTAP 2003-01-01 Completed [facility] 00:00:00 [facility] HIB 4 Dose Schedule 2003-01-01 Completed Unive rsity of 00:00:00 [facility] Hep B, Adol or Pedi 2003-01-01 Completed Unive rsity of Dosage 00:00:00 [facility] Pneumococcal 7 2003-01-01 Completed [facility] of Conjugate, PCV7 00:00:00 [place] [facility] (Prevnar7) [facility] DTAP 2003-01-01 Completed [facility] 00:00:00 [facility] HIB 4 Dose Schedule 2003-01-01 Completed Unive rsity of 00:00:00 [facility] Hep B, Adol or Pedi 2003-01-01 Completed Unive rsity of Dosage 00:00:00 [facility] Pneumococcal 7 2003-01-01 Completed [facility] Conjugate, PCV7 00:00:00 [place] [facility] (Prevnar7) [facility] DTAP 2003-01-01 Completed [facility] 00:00:00 [facility] HIB 4 Dose Schedule 2003-01-01 Completed Unive rsity of 00:00:00 [facility] Hep B, Adol or Pedi 2003-01-01 Completed Unive rsity of Dosage 00:00:00 [facility] Pneumococcal 7 2003-01-01 Completed [facility] Conjugate, PCV7 00:00:00 [place] [facility] (Prevnar7) [facility] DTAP 2003-01-01 Completed [facility] 00:00:00 [facility] HIB 4 Dose Schedule 2003-01-01 Completed Unive rsity of 00:00:00 [facility] Hep B, Adol or Pedi 2003-01-01 Completed Unive rsity of Dosage 00:00:00 [facility] Pneumococcal 7 2003-01-01 Completed [facility] Conjugate, PCV7 00:00:00 [place] [facility] (Prevnar7) [facility] DTAP 2003-01-01 Completed [facility] 00:00:00 [facility] HIB 4 Dose Schedule 2003-01-01 Completed Unive rsity of 00:00:00 [facility] Hep B, Adol or Pedi 2003-01-01 Completed Unive rsity of Dosage 00:00:00 [facility] Pneumococcal 7 2003-01-01 Completed [facility] Conjugate, PCV7 00:00:00 [place] [facility] (Prevnar7) [facility] DTAP 2003-01-01 Completed [facility] 00:00:00 [facility] HIB 4 Dose Schedule 2003-01-01 Completed [facility]ive [facility]ity of 00:00:00 [facility] Hep B, Adol or Pedi 2003-01-01 Completed Unive rsity of Dosage 00:00:00 [facility] Pneumococcal 7 2003-01-01 Completed [facility] Conjugate, PCV7 00:00:00 [place] [facility] (Prevnar7) [facility] DTAP 2003-01-01 Completed [facility] 00:00:00 [facility] HIB 4 Dose Schedule 2003-01-01 Completed Unive rsity of 00:00:00 [facility] Hep B, Adol or Pedi 2003-01-01 Completed Unive rsity of Dosage 00:00:00 [facility] Pneumococcal 7 2003-01-01 Completed [facility] Conjugate, PCV7 00:00:00 [place] [facility] (Prevnar7) [facility] DTAP 2003-01-01 Completed [facility] 00:00:00 [facility] HIB 4 Dose Schedule 2003-01-01 Completed Unive rsity of 00:00:00 [facility] Hep B, Adol or Pedi 2003-01-01 Completed Unive rsity of Dosage 00:00:00 [facility] Pneumococcal 7 2003-01-01 Completed [facility] Conjugate, PCV7 00:00:00 [place] [facility] (Prevnar7) [facility] DTAP 2003-01-01 Completed [facility] 00:00:00 [facility] HIB 4 Dose Schedule 2003-01-01 Completed Unive rsity of 00:00:00 [facility] Hep B, Adol or Pedi 2003-01-01 Completed Unive rsity of Dosage 00:00:00 [facility] Pneumococcal 7 2003-01-01 Completed [facility] Conjugate, PCV7 00:00:00 [place] [facility] (Prevnar7) [facility] DTAP 2003-01-01 Completed [facility] 00:00:00 [facility] HIB 4 Dose Schedule 2003-01-01 Completed Unive rsity of 00:00:00 [facility] Hep B, Adol or Pedi 2003-01-01 Completed Unive rsity of Dosage 00:00:00 [facility] Pneumococcal 7 2003-01-01 Completed [facility] Conjugate, PCV7 00:00:00 [place] [facility] (Prevnar7) [facility] DTAP 2003-01-01 Completed [facility] 00:00:00 [facility] HIB 4 Dose Schedule 2003-01-01 Completed Unive rsity of 00:00:00 [facility] Hep B, Adol or Pedi 2003-01-01 Completed Unive rsity of Dosage 00:00:00 [facility] Pneumococcal 7 2003-01-01 Completed [facility] Conjugate, PCV7 00:00:00 [place] [facility] (Prevnar7) [facility] DTAP 2003-01-01 Completed [facility] 00:00:00 [facility] HIB 4 Dose Schedule 2003-01-01 Completed Unive rsity of 00:00:00 [facility] Hep B, Adol or Pedi 2003-01-01 Completed Unive rsity of Dosage 00:00:00 [facility] Pneumococcal 7 2003-01-01 Completed [facility] Conjugate, PCV7 00:00:00 [place] [facility] (Prevnar7) [facility] DTAP 2003-01-01 Completed [facility] 00:00:00 [facility] HIB 4 Dose Schedule 2003-01-01 Completed Unive rsity of 00:00:00 [facility] Hep B, Adol or Pedi 2003-01-01 Completed Unive rsity of Dosage 00:00:00 [facility] Pneumococcal 7 2003-01-01 Completed [facility] Conjugate, PCV7 00:00:00 [place] [facility] (Prevnar7) [facility] DTAP 2003-01-01 Completed [facility] 00:00:00 [facility] HIB 4 Dose Schedule 2003-01-01 Completed Unive rsity of 00:00:00 [facility] Hep B, Adol or Pedi 2003-01-01 Completed Unive rsity of Dosage 00:00:00 [facility] Pneumococcal 7 2003-01-01 Completed [facility] Conjugate, PCV7 00:00:00 [place] [facility] (Prevnar7) [facility] DTAP 2003-01-01 Completed [facility] 00:00:00 [facility] HIB 4 Dose Schedule 2003-01-01 Completed Unive rsity of 00:00:00 [facility] Hep B, Adol or Pedi 2003-01-01 Completed Unive rsity of Dosage 00:00:00 [facility] Pneumococcal 7 2003-01-01 Completed [facility] Conjugate, PCV7 00:00:00 [place] [facility] (Prevnar7) [facility] DTAP 2003-01-01 Completed [facility] 00:00:00 [facility] HIB 4 Dose Schedule 2003-01-01 Completed Unive rsity of 00:00:00 [facility] Hep B, Adol or Pedi 2003-01-01 Completed Unive rsity of Dosage 00:00:00 [facility] Pneumococcal 7 2003-01-01 Completed [facility] of Conjugate, PCV7 00:00:00 [place] [facility] (Prevnar7) [facility] DTAP 2003-01-01 Completed [facility] 00:00:00 [facility] HIB 4 Dose Schedule 2003-01-01 Completed Unive rsity of 00:00:00 [facility] Hep B, Adol or Pedi 2003-01-01 Completed Unive rsity of Dosage 00:00:00 [facility] Pneumococcal 7 2003-01-01 Completed [facility] Conjugate, PCV7 00:00:00 [place] [facility] (Prevnar7) [facility] DTAP 2003-01-01 Completed [facility] 00:00:00 [facility] HIB 4 Dose Schedule 2003-01-01 Completed Unive rsity of 00:00:00 [facility] Hep B, Adol or Pedi 2003-01-01 Completed Unive rsity of Dosage 00:00:00 [facility] Pneumococcal 7 2003-01-01 Completed [facility] of Conjugate, PCV7 00:00:00 [place] [facility] (Prevnar7) [facility] DTAP 2003-01-01 Completed [facility] 00:00:00 [facility] HIB 4 Dose Schedule 2003-01-01 Completed Unive rsity of 00:00:00 [facility] Hep B, Adol or Pedi 2003-01-01 Completed Unive rsity of Dosage 00:00:00 [facility] Pneumococcal 7 2003-01-01 Completed [facility] of Conjugate, PCV7 00:00:00 [place] [facility] (Prevnar7[facility] DTAP 2003-01-01 Completed [facility] 00:00:00 [facility] HIB 4 Dose Schedule 2003-01-01 Completed Unive rsity of 00:00:00 [facility] Hep B, Adol or Pedi 2003-01-01 Completed Unive rsity of Dosage 00:00:00 [facility] Pneumococcal 7 2003-01-01 Completed [facility] of Conjugate, PCV7 00:00:00 [place] [facility] (Pre[facility] DTAP 2002 Completed [facility] 00:00:00 [facility] HIB 4 Dose Schedule 2002 Completed Unive rsity of 00:00:00 [facility] Pneumococcal 7 2002 Completed [facility] Conjugate, PCV7 00:00:00 [place] [facility] (Prevnar7) [facility] Polio (IPV/OPV) 2002 Completed [facility]it y [facility] 00:00:00 [facility] DTAP 2002 Completed University of 00:00:00 [facility] HIB 4 Dose Schedule 2002 Completed Unive rsity of 00:00:00 [facility] Pneumococcal 7 2002 Completed [facility] of Conjugate, PCV7 00:00:00 [place] [facility] (Pre[facility]ar[facility] Polio (IPV/OPV) 2002 Completed [facility]it y [facility] 00:00:00 [facility] DTAP 2002 Completed University of 00:00:00 [facility] HIB 4 Dose Schedule 2002 Completed Unive rsity of 00:00:00 [facility] Pneumococcal 7 2002 Completed [facility] Conjugate, PCV7 00:00:00 [place] [facility] (Prevnar7[facility] Polio (IPV/OPV) 2002 Completed [facility]it [facility] 00:00:00 [facility] DTAP 2002 Completed [facility] of 00:00:00 [facility] HIB 4 Dose Schedule 2002 Completed Unive rsity of 00:00:00 [facility] Pneumococcal 7 2002 Completed [facility] Conjugate, PCV7 00:00:00 [place] [facility] (Prevnar7) [facility] Polio (IPV/OPV) 2002 Completed [facility]it [facility] 00:00:00 [facility] DTAP 2002 Completed [facility] of 00:00:00 [facility] HIB 4 Dose Schedule 2002 Completed Unive rsity of 00:00:00 [facility] Pneumococcal 7 2002 Completed [facility] Conjugate, PCV7 00:00:00 [place] [facility] (Pre[facility]ar[facility] Polio (IPV/OPV) 2002 Completed [facility]it [facility] 00:00:00 [facility] DTAP 2002 Completed [facility] of 00:00:00 [facility] HIB 4 Dose Schedule 2002 Completed [facility]ive rsity of 00:00:00 [facility] Pneumococcal 7 2002 Completed [facility] Conjugate, PCV7 00:00:00 [place] [facility] (Prevnar[facility] Polio (IPV/OPV) 2002 Completed [facility]it [facility] 00:00:00 [facility] DTAP 2002 Completed [facility] of 00:00:00 [facility] HIB 4 Dose Schedule 2002 Completed Unive rsity of 00:00:00 [facility] Pneumococcal 7 2002 Completed [facility] Conjugate, PCV7 00:00:00 [place] [facility] (Prevnar[facility] Polio (IPV/OPV) 2002 Completed [facility]it [facility] 00:00:00 [facility] DTAP 2002 Completed [facility] of 00:00:00 [facility] HIB 4 Dose Schedule 2002 Completed Unive rsity of 00:00:00 [facility] Pneumococcal 7 2002 Completed [facility] Conjugate, PCV7 00:00:00 [place] [facility] (Prevnar[facility] Polio (IPV/OPV) 2002 Completed [facility]it [facility] of 00:00:00 [facility] DTAP 2002 Completed [facility] of 00:00:00 [facility] HIB 4 Dose Schedule 2002 Completed Unive rsity of 00:00:00 [facility] Pneumococcal 7 2002 Completed [facility] Conjugate, PCV7 00:00:00 [place] [facility] (Prevnar7[facility] Polio (IPV/OPV) 2002 Completed [facility]it [facility] 00:00:00 [facility] DTAP 2002 Completed [facility] of 00:00:00 [facility] HIB 4 Dose Schedule 2002 Completed Unive rsity of 00:00:00 [facility] Pneumococcal 7 2002 Completed [facility] Conjugate, PCV7 00:00:00 [place] [facility] (Pre[facility]ar[facility] Polio (IPV/OPV) 2002 Completed [facility]it [facility] 00:00:00 [facility] DTAP 2002 Completed [facility] of 00:00:00 [facility] HIB 4 Dose Schedule 2002 Completed Unive rsity of 00:00:00 [facility] Pneumococcal 7 2002 Completed [facility] Conjugate, PCV7 00:00:00 [place] [facility] (Prevnar7[facility] Polio (IPV/OPV) 2002 Completed [facility]it [facility] of 00:00:00 [facility] DTAP 2002 Completed [facility] of 00:00:00 [facility] HIB 4 Dose Schedule 2002 Completed Unive rsity of 00:00:00 [facility] Pneumococcal 7 2002 Completed [facility] Conjugate, PCV7 00:00:00 [place] [facility] (Prevnar7) [facility] Polio (IPV/OPV) 2002 Completed [facility]it [facility] 00:00:00 [facility] DTAP 2002 Completed [facility] of 00:00:00 [facility] HIB 4 Dose Schedule 2002 Completed Unive rsity of 00:00:00 [facility] Pneumococcal 7 2002 Completed [facility] Conjugate, PCV7 00:00:00 [place] [facility] (Prevnar7[facility] Polio (IPV/OPV) 2002 Completed [facility]it [facility] of 00:00:00 [facility] DTAP 2002 Completed [facility] of 00:00:00 [facility] HIB 4 Dose Schedule 2002 Completed Unive rsity of 00:00:00 [facility] Pneumococcal 7 2002 Completed [facility] of Conjugate, PCV7 00:00:00 [place] [facility] (Prevnar7) [facility] Polio (IPV/OPV) 2002 Completed [facility]it y of 00:00:00 [facility] DTAP 2002 Completed [facility] of 00:00:00 [facility] HIB 4 Dose Schedule 2002 Completed Unive rsity of 00:00:00 [facility] Pneumococcal 7 2002 Completed [facility] Conjugate, PCV7 00:00:00 [place] [facility] (Prevnar7) [facility] Polio (IPV/OPV) 2002 Completed [facility]it [facility] of 00:00:00 [facility] DTAP 2002 Completed [facility] of 00:00:00 [facility] HIB 4 Dose Schedule 2002 Completed Unive rsity of 00:00:00 [facility] Pneumococcal 7 2002 Completed [facility] Conjugate, PCV7 00:00:00 [place] [facility] (Prevnar7[facility] Polio (IPV/OPV) 2002 Completed [facility]it [facility] 00:00:00 [facility] DTAP 2002 Completed [facility] of 00:00:00 [facility] HIB 4 Dose Schedule 2002 Completed Unive rsity of 00:00:00 [facility] Pneumococcal 7 2002 Completed [facility] Conjugate, PCV7 00:00:00 [place] [facility] (Prevnar7) [facility] Polio (IPV/OPV) 2002 Completed [facility] 00:00:00 [facility] DTAP 2002 Completed [facility] of 00:00:00 [facility] HIB 4 Dose Schedule 2002 Completed Unive rsity of 00:00:00 [facility] Pneumococcal 7 2002 Completed [facility] Conjugate, PCV7 00:00:00 [place] [facility] (Prevnar7[facility] Polio (IPV/OPV) 2002 Completed [facility]it [facility] of 00:00:00 [facility] DTAP 2002 Completed [facility] of 00:00:00 [facility] HIB 4 Dose Schedule 2002 Completed Unive rsity of 00:00:00 [facility] Pneumococcal 7 2002 Completed [facility] Conjugate, PCV7 00:00:00 [place] [facility] (Prevnar7[facility] Polio (IPV/OPV) 2002 Completed [facility] 00:00:00 [facility] DTAP 2002 Completed [facility] of 00:00:00 [facility] HIB 4 Dose Schedule 2002 Completed Unive rsity of 00:00:00 [facility] Pneumococcal 7 2002 Completed [facility] Conjugate, PCV7 00:00:00 [place] [facility] (Prevnar7) [facility] Polio (IPV/OPV) 2002 Completed [facility] 00:00:00 [facility] DTAP 2002 Completed [facility] of 00:00:00 [facility] HIB 4 Dose Schedule 2002 Completed Unive rsity of 00:00:00 [facility] Pneumococcal 7 2002 Completed [facility] Conjugate, PCV7 00:00:00 [place] [facility] (Prevnar7) [facility] Polio (IPV/OPV) 2002 Completed [facility] 00:00:00 [facility] DTAP 2002 Completed [facility] of 00:00:00 [facility] HIB 4 Dose Schedule 2002 Completed Unive rsity of 00:00:00 [facility] Pneumococcal 7 2002 Completed [facility] Conjugate, PCV7 00:00:00 [place] [facility] (Prevnar7) [facility] Polio (IPV/OPV) 2002 Completed [facility] 00:00:00 [facility] DTAP 2002 Completed [facility] of 00:00:00 [facility] HIB 4 Dose Schedule 2002 Completed Unive rsity of 00:00:00 [facility] Pneumococcal 7 2002 Completed [facility] of Conjugate, PCV7 00:00:00 [place] [facility] (Prevnar7) [facility] Polio (IPV/OPV) 2002 Completed [facility]it [facility] 00:00:00 [facility] DTAP 2002 Completed [facility] 00:00:00 [facility] HIB 4 Dose Schedule 2002 Completed Unive rsity of 00:00:00 [facility] Pneumococcal 7 2002 Completed [facility] Conjugate, PCV7 00:00:00 [place] [facility] (Prevnar7) [facility] Polio (IPV/OPV) 2002 Completed [facility] 00:00:00 [facility] DTAP 2002 Completed [facility] 00:00:00 [facility] HIB 4 Dose Schedule 2002 Completed Unive rsity of 00:00:00 [facility] Hep B, Adol or Pedi 2002 Completed Unive [facility]ity of Dosage 00:00:00 [facility] Polio (IPV/OPV) 2002 Completed [facility] 00:00:00 [facility] DTAP 2002 Completed [facility] 00:00:00 [facility] HIB 4 Dose Schedule 2002 Completed Unive [facility]ity of 00:00:00 [facility] Hep B, Adol or Pedi 2002 Completed [facility]ive rsity of Dosage 00:00:00 [facility] Polio (IPV/OPV) 2002 Completed [facility] 00:00:00 [facility] DTAP 2002 Completed [facility] 00:00:00 [facility] HIB 4 Dose Schedule 2002 Completed [facility]ive [facility] of 00:00:00 [facility] Hep B, Adol or Pedi 2002 Completed [facility]ive [facility]ity of Dosage 00:00:00 [facility] Polio (IPV/OPV) 2002 Completed [facility] 00:00:00 [facility] DTAP 2002 Completed [facility] 00:00:00 [facility] HIB 4 Dose Schedule 2002 Completed [facility]ive [facility]ity of 00:00:00 [facility] Hep B, Adol or Pedi 2002 Completed [facility]ive rsity of Dosage 00:00:00 [facility] Polio (IPV/OPV) 2002 Completed [facility] 00:00:00 [facility] DTAP 2002 Completed [facility] 00:00:00 [facility] HIB 4 Dose Schedule 2002 Completed [facility] 00:00:00 [facility] Hep B, Adol or Pedi 2002 Completed [facility]ive [facility]ity of Dosage 00:00:00 [facility] Polio (IPV/OPV) 2002 Completed [facility] 00:00:00 [facility] DTAP 2002 Completed [facility] 00:00:00 [facility] HIB 4 Dose Schedule 2002 Completed [facility]ive [facility] of 00:00:00 [facility] Hep B, Adol or Pedi 2002 Completed [facility]ive [facility]ity of Dosage 00:00:00 [facility] Polio (IPV/OPV) 2002 Completed [facility] 00:00:00 [facility] DTAP 2002 Completed [facility] 00:00:00 [facility] HIB 4 Dose Schedule 2002 Completed [facility]ive rsity of 00:00:00 [facility] Hep B, Adol or Pedi 2002 Completed Unive rsity of Dosage 00:00:00 [facility] Polio (IPV/OPV) 2002 Completed [facility] 00:00:00 [facility] DTAP 2002 Completed [facility] 00:00:00 [facility] HIB 4 Dose Schedule 2002 Completed [facility]ive [facility] of 00:00:00 [facility] Hep B, Adol or Pedi 2002 Completed [facility]ive [facility]ity of Dosage 00:00:00 [facility] Polio (IPV/OPV) 2002 Completed [facility] of 00:00:00 [facility] DTAP 2002 Completed [facility] 00:00:00 [facility] HIB 4 Dose Schedule 2002 Completed [facility]ive [facility]ity of 00:00:00 [facility] Hep B, Adol or Pedi 2002 Completed [facility]ive rsity of Dosage 00:00:00 [facility] Polio (IPV/OPV) 2002 Completed [facility] 00:00:00 [facility] DTAP 2002 Completed [facility] 00:00:00 [facility] HIB 4 Dose Schedule 2002 Completed [facility]ive [facility] of 00:00:00 [facility] Hep B, Adol or Pedi 2002 Completed [facility]ive [facility]ity of Dosage 00:00:00 [facility] Polio (IPV/OPV) 2002 Completed [facility] of 00:00:00 [facility] DTAP 2002 Completed [facility] 00:00:00 [facility] HIB 4 Dose Schedule 2002 Completed [facility]ive [facility] of 00:00:00 [facility] Hep B, Adol or Pedi 2002 Completed [facility]ive rsity of Dosage 00:00:00 [facility] Polio (IPV/OPV) 2002 Completed [facility] of 00:00:00 [facility] DTAP 2002 Completed [facility] 00:00:00 [facility] HIB 4 Dose Schedule 2002 Completed [facility]ive [facility] of 00:00:00 [facility] Hep B, Adol or Pedi 2002 Completed [facility]ive rsity of Dosage 00:00:00 [facility] Polio (IPV/OPV) 2002 Completed [facility] of 00:00:00 [facility] DTAP 2002 Completed [facility] 00:00:00 [facility] HIB 4 Dose Schedule 2002 Completed [facility]ive [facility] of 00:00:00 [facility] Hep B, Adol or Pedi 2002 Completed [facility]ive rsity of Dosage 00:00:00 [facility] Polio (IPV/OPV) 2002 Completed [facility] 00:00:00 [facility] DTAP 2002 Completed [facility] 00:00:00 [facility] HIB 4 Dose Schedule 2002 Completed [facility]ive [facility] of 00:00:00 [facility] Hep B, Adol or Pedi 2002 Completed Unive rsity of Dosage 00:00:00 [facility] Polio (IPV/OPV) 2002 Completed [facility] of 00:00:00 [facility] DTAP 2002 Completed [facility] 00:00:00 [facility] HIB 4 Dose Schedule 2002 Completed [facility]ive [facility] of 00:00:00 [facility] Hep B, Adol or Pedi 2002 Completed Unive rsity of Dosage 00:00:00 [facility] Polio (IPV/OPV) 2002 Completed [facility] of 00:00:00 [facility] DTAP 2002 Completed [facility] 00:00:00 [facility] HIB 4 Dose Schedule 2002 Completed [facility]ive [facility] of 00:00:00 [facility] Hep B, Adol or Pedi 2002 Completed [facility]ive rsity of Dosage 00:00:00 [facility] Polio (IPV/OPV) 2002 Completed [facility] of 00:00:00 [facility] DTAP 2002 Completed [facility] 00:00:00 [facility] HIB 4 Dose Schedule 2002 Completed [facility] of 00:00:00 [facility] Hep B, Adol or Pedi 2002 Completed [facility]ive rsity of Dosage 00:00:00 [facility] Polio (IPV/OPV) 2002 Completed [facility] of 00:00:00 [facility] DTAP 2002 Completed [facility] 00:00:00 [facility] HIB 4 Dose Schedule 2002 Completed [facility]ity of 00:00:00 [facility] Hep B, Adol or Pedi 2002 Completed [facility]ive rsity of Dosage 00:00:00 [facility] Polio (IPV/OPV) 2002 Completed [facility] of 00:00:00 [facility] DTAP 2002 Completed [facility] 00:00:00 [facility] HIB 4 Dose Schedule 2002 Completed [facility] of 00:00:00 [facility] Hep B, Adol or Pedi 2002 Completed Unive rsity of Dosage 00:00:00 [facility] Polio (IPV/OPV) 2002 Completed [facility] of 00:00:00 [facility] DTAP 2002 Completed [facility] 00:00:00 [facility] HIB 4 Dose Schedule 2002 Completed [facility]ive [facility]ity of 00:00:00 [facility] Hep B, Adol or Pedi 2002 Completed Unive rsity of Dosage 00:00:00 [facility] Polio (IPV/OPV) 2002 Completed [facility] of 00:00:00 [facility] DTAP 2002 Completed [facility] 00:00:00 [facility] HIB 4 Dose Schedule 2002 Completed [facility]ity of 00:00:00 [facility] Hep B, Adol or Pedi 2002 Completed [facility]ive rsity of Dosage 00:00:00 [facility] Polio (IPV/OPV) 2002 Completed [facility] 00:00:00 [facility] DTAP 2002 Completed [facility] 00:00:00 [facility] HIB 4 Dose Schedule 2002 Completed [facility] of 00:00:00 [facility] Hep B, Adol or Pedi 2002 Completed [facility]ive rsity of Dosage 00:00:00 [facility] Polio (IPV/OPV) 2002 Completed [facility] 00:00:00 [facility] DTAP 2002 Completed [facility] 00:00:00 [facility] HIB 4 Dose Schedule 2002 Completed [facility]ive [facility]ity of 00:00:00 [facility] Hep B, Adol or Pedi 2002 Completed Unive rsity of Dosage 00:00:00 [facility] Polio (IPV/OPV) 2002 Completed [facility] 00:00:00 [facility] DTAP 2002 Completed [facility] 00:00:00 [facility] HIB 4 Dose Schedule 2002 Completed [facility]ive rsity of 00:00:00 [facility] Hep B, Adol or Pedi 2002 Completed [facility]ive rsity of Dosage 00:00:00 [facility] Polio (IPV/OPV) 2002 Completed [facility] [...] [facility] Hep B, Adol or Pedi 2002 Completed Unive rsity of Dosage 00:00:00 [facility] Hep B, Adol or Pedi 2002 Completed Unive rsity of Dosage 00:00:00 [facility] Vital Signs Vital Name Observation Time Observation Value Comments Source Body temperature 2022-05-19 18:10:00 36.28 Linda [facility] Body weight 2022-05-19 18:10:00 51.256 kg [facility] ty [facility] BMI 2022-05-19 18:10:00 20.02 kg/m2 Universi ty [facility] Body temperature 2022-04-21 20:32:00 36.22 Linda [facility] ersity of [facility] Body height 2022-04-21 20:32:00 160 cm Universi ty [facility] Body weight 2022-04-21 20:32:00 50.349 kg Universi ty [facility] BMI 2022-04-21 20:32:00 19.66 kg/m2 Universi ty [facility] Systolic blood 2022-04-11 03:10:00 110 mm[Hg] Univer sity of pressure [facility] Diastolic blood 2022-04-11 03:10:00 73 mm[Hg] Unive rsity of pressure [facility] Heart rate 2022-04-11 03:10:00 88 /min [facility] Respiratory rate 2022-04-11 03:10:00 18 /min [facility] Oxygen saturation in 2022-04-11 03:10:00 100 /min [facility] Arterial blood by [facility]ximetry [facility] Body temperature 2022-04-10 22:10:00 36.28 Linda [facility] Body weight 2022-04-10 22:10:00 49.896 kg [facility]i ty of [facility] BMI 2022-04-10 22:10:00 19.80 kg/m2 [facility]i ty [facility] Systolic blood 2022-04-10 21:48:00 108 mm[Hg] Univer sity of pressure [facility] Diastolic blood 2022-04-10 21:48:00 75 mm[Hg] Unive rsity of pressure [facility] Heart rate 2022-04-10 21:48:00 127 /min [facility] Body temperature 2022-04-10 21:48:00 36.61 Linda [facility] Respiratory rate 2022-04-10 21:48:00 17 /min [facility] Body height 2022-04-10 21:48:00 158.8 cm [facility] Body weight 2022-04-10 21:48:00 49.896 kg [facility] BMI 2022-04-10 21:48:00 19.80 kg/m2 [facility] Oxygen saturation in 2022-04-10 21:48:00 98 /min [facility] of Arterial blood by [facility] Systolic blood 2022-04-07 18:00:00 104 mm[Hg] Univer sity of pressure [facility] Diastolic blood 2022-04-07 18:00:00 58 mm[Hg] Unive rsity of pressure [facility] Heart rate 2022-04-07 18:00:00 64 /min [facility] Body temperature 2022-04-07 18:00:00 36.39 Linda [facility] Respiratory rate 2022-04-07 18:00:00 18 /min [facility] Oxygen saturation in 2022-04-07 18:00:00 96 /min [facility] Arterial blood by [facility] Body height 2022-04-04 23:00:18 161.3 cm [facility] Body weight 2022-04-04 23:00:18 50.349 kg [facility] BMI 2022-04-04 23:00:18 19.35 kg/m2 [facility] Heart rate 2022-04-04 21:03:00 109 /min [facility] Body temperature 2022-04-04 21:03:00 37.72 Linda [facility] Respiratory rate 2022-04-04 21:03:00 18 /min Univ [facility] Oxygen saturation in 2022-04-04 21:03:00 95 /min [facility] Arterial blood by [place] [facility] Pulse oximetry Branch Systolic blood 2022-04-04 21:00:00 98 mm[Hg] [facility] [place] [facility] Diastolic blood 2022-04-04 21:00:00 64 mm[Hg] [facility]ive [facility] [place] [facility] Body height 2022-04-04 17:44:00 162.6 cm [facility] [place] [facility] Body weight 2022-04-04 17:44:00 50.349 kg [facility] [place] [facility] BMI 2022-04-04 17:44:00 19.05 kg/m2 [facility] [place] [facility] Systolic blood 2022-04-01 06:00:00 118 mm[Hg] [facility] [place] [facility] Diastolic blood 2022-04-01 06:00:00 92 mm[Hg] [facility] [place] [facility] Heart rate 2022-04-01 06:00:00 78 /min [facility] [place] [facility] Respiratory rate 2022-04-01 06:00:00 16 /min [facility] [place] [facility] Oxygen saturation in 2022-04-01 06:00:00 98 /min [facility] Arterial blood by [facility] Pulse oximetry Branch Body height 2022-04-01 03:48:00 160 cm [facility] [place] [facility] Body weight 2022-04-01 03:48:00 56.7 kg [facility] [place] [facility] BMI 2022-04-01 03:48:00 22.14 kg/m2 [facility] [place] [facility] Height 2020-09-25 23:56:00 165.1 CM Weight 2020-09-25 23:56:00 2.69 KG Systolic blood 2022-05-19 16:06:00 124 mm[Hg] [facility] [place] [facility] Diastolic blood 2022-05-19 16:06:00 85 mm[Hg] [facility] [place] [facility] Heart rate 2022-05-19 16:06:00 103 /min [facility] [place] [facility] Respiratory rate 2022-05-19 16:06:00 18 /min Univ [facility] [place] [facility] Body height 2022-05-19 16:06:00 160 cm [facility] [place] [facility] Body weight 2022-05-19 16:06:00 51.256 kg [facility] [place] [facility] BMI 2022-05-19 16:06:00 20.02 kg/m2 [facility] [place] [facility] Systolic blood 2022-05-02 13:53:00 115 mm[Hg] [facility] [place] [facility] Diastolic blood 2022-05-02 13:53:00 80 mm[Hg] [facility] [place] [facility] Heart rate 2022-05-02 13:53:00 103 /min [facility] [place] [facility] Respiratory rate 2022-05-02 13:53:00 18 /min [facility] [place] [facility] Body height 2022-05-02 13:53:00 160 cm [facility] [place] [facility] Body weight 2022-05-02 13:53:00 51.256 kg [facility] [place] [facility] BMI 2022-05-02 13:53:00 20.02 kg/m2 [facility] [place] [facility] Body temperature 2022-04-21 20:32:00 36.22 Linda [facility] [place] [facility] Body height 2022-04-21 20:32:00 160 cm [facility] [place] [facility] Body weight 2022-04-21 20:32:00 50.349 kg [facility] [place] [facility] BMI 2022-04-21 20:32:00 19.66 kg/m2 [facility] [place] [facility] Systolic blood 2022-04-21 15:04:00 104 mm[Hg] [facility] [place] [facility] Diastolic blood 2022-04-21 15:04:00 71 mm[Hg] [facility] [place] [facility] Heart rate 2022-04-21 15:04:00 110 /min [facility] [place] [facility] Respiratory rate 2022-04-21 15:04:00 18 /min Univ [facility] [place] [facility] Body height 2022-04-21 15:04:00 157.5 cm [facility] [place] [facility] Body weight 2022-04-21 15:04:00 49.896 kg [facility] [place] [facility] BMI 2022-04-21 15:04:00 20.12 kg/m2 [facility] [place] [facility] Systolic blood 2022-04-11 03:10:00 110 mm[Hg] [facility] [place] [facility] Diastolic blood 2022-04-11 03:10:00 73 mm[Hg] [facility] [place] [facility] Heart rate 2022-04-11 03:10:00 88 /min [facility] [place] [facility] Respiratory rate 2022-04-11 03:10:00 18 /min [facility] [place] [facility] Oxygen saturation in 2022-04-11 03:10:00 100 /min [facility] Ar[facility]ial blood by [place] [facility] Pulse oximetry Branch Body temperature 2022-04-10 22:10:00 36.28 Linda [facility] [place] [facility] Body weight 2022-04-10 22:10:00 49.896 kg [facility] [place] [facility] BMI 2022-04-10 22:10:00 19.80 kg/m2 [facility] [place] [facility] Body height 2022-04-10 21:48:00 158.8 cm [facility] [place] [facility] Systolic blood 2022-04-06 13:00:00 114 mm[Hg] [facility] [place] [facility] Diastolic blood 2022-04-06 13:00:00 71 mm[Hg] [facility] [place] [facility] Heart rate 2022-04-06 13:00:00 92 /min [facility] [place] [facility] Body temperature 2022-04-06 13:00:00 36.78 Linda [facility] [place] [facility] Respiratory rate 2022-04-06 13:00:00 20 /min [facility] [place] [facility] Oxygen saturation in 2022-04-06 13:00:00 96 /min [facility] Arterial blood by [place] BU[facility] Pulse oximetry Branch Body height 2022-04-04 23:00:18 161.3 cm [facility] [place] [facility] Body weight 2022-04-04 23:00:18 50.349 kg [facility] [place] [facility] BMI 2022-04-04 23:00:18 19.35 kg/m2 [facility] [place] [facility] Systolic blood 2022-03-28 14:54:00 116 mm[Hg] [facility] [place] [facility] Diastolic blood 2022-03-28 14:54:00 87 mm[Hg] [facility]ive [facility] [place] [facility] Heart rate 2022-03-28 14:54:00 113 /min [facility] [place] [facility] [place] Respiratory rate 2022-03-28 14:54:00 18 /min [facility] Body height 2022-03-28 14:54:00 160 cm [facility] [place] [facility] Body weight 2022-03-28 14:54:00 51.71 kg [facility] [place] [facility] BMI 2022-03-28 14:54:00 20.19 kg/m2 [facility] [place] [facility] [place] Body temperature 2022-02-24 18:37:00 37 Linda [facility] ersity of [place] [facility] [place] Body weight 2022-02-24 18:37:00 51.801 kg [facility] [place] [facility] [place] BMI 2022-02-24 18:37:00 20.23 kg/m2 Universi ty of [facility] Systolic blood 2022-02-21 12:51:00 133 mm[Hg] Univer sity of [facility] Diastolic blood 2022-02-21 12:51:00 49 mm[Hg] Unive rs[facility] medical [facility] of [facility] Heart rate 2022-02-21 12:51:00 108 /min [facility] [place] [facility] [place] Respiratory rate 2022-02-21 12:51:00 18 /min [facility] Body height 2022-02-21 12:51:00 160 cm Universi ty [facility] Oxygen saturation in 2022-01-24 00:45:00 98 /min [facility] Arterial blood by [facility] Pulse oximetry Branch Head 2009-07-13 18:51:00 51 cm Universi ty of Occipital-frontal [facility] circumference by T[place] Branch measure Procedures Procedure Date / Time Performing Clinician Source Performed XR PELVIS 3+ VW 2022-05-19 16:43:54 Arnaldo [facility] XR PELVIS 3+ VW 2022-04-21 20:26:51 Arnaldo [facility] XR HIPS 3 VW RIGHT 2022-04-11 02:02:47 Irasema Robledo [facility] XR PELVIS <3 VW 2022-04-11 02:02:[facility] <3 VW 2022-04-11 02:02:47 [facility] HIPS 3 VW RIGHT 2022-04-11 02:02:47 Irasema Robledo [facility] POCT TEST 2022-04-11 01:46:00 Irasema Robledo [facility] POCT TEST 2022-04-11 01:46:00 Irasema Robledo [facility] URINALYSIS 2022-04-11 01:45:00 Venkat [facility] URINALYSIS 2022-04-11 01:45:00 Venkat [facility] COMP. METABOLIC PANEL 2022-04-10 23:02:00 [id number] [place] CBC WITH DIFF 2022-04-10 23:02:00 Venkat [facility] CBC WITH DIFF 2022-04-10 23:02:00 Venkat [facility] COMP. METABOLIC PANEL 2022-04-10 23:02:00 [id number] EMERGENCY SERVICES 2022-04-10 05:01:00 Doctor Unassigned, [facility] AGREEMENTS AND [facility] [facility] AUTHORIZATIONS EMERGENCY DEPARTMENT 2022-04-10 05:01:00 Doctor Unassigned, [facility] DOCUMENTS [facility] XR CLAVICLE COMP 2022-04-05 19:40:00 Eyad Lobo [facility] BILATERAL Medical [place] XR CLAVICLE COMP 2022-04-05 19:40:00 Lobo Castano [facility] BILATERAL Medical Branch URINALYSIS 2022-04-05 11:07:00 Greg [facility] URINALYSIS 2022-04-05 11:07:00 Greg [facility] CBC WITH DIFF 2022-04-05 10:24:00 Jimena Ny [facility] BASIC METABOLIC PANEL 2022-04-05 10:24:00 Anant Jimena [facility] (NA, K, CL, CO2, GLUCOSE, [facility] BUN, CREATININE, [place]) BASIC METABOLIC PANEL 2022-04-05 10:24:00 Jimena Ny [facility] (NA, K, CL, CO2, GLUCOSE, [facility] BUN, CREATININE, [place]) CBC WITH DIFF 2022-04-05 10:24:00 Jimena Ny [facility] COVID-19 (ID NOW RAPID 2022-04-05 00:38:00 AnantJimena irene [facility] TESTING) [facility] LAB ONLY COVID 2022-04-05 00:38:00 Jimena Ny [facility] INTERPRETATION [facility] COVID-19 (ID NOW RAPID 2022-04-05 00:38:00 Jimena Ny [facility] TESTING) [facility] LAB ONLY COVID 2022-04-05 00:38:00 Jimena Ny [facility] INTERPRETATION [facility] TROPONIN I 2022-04-05 00:25:00 Chou [facility] Andrea TROPONIN I 2022-04-05 00:25[facility] SHOULDER 2+ VW RIGHT 2022-04-05 00:11:00 Chou [facility] Andrea XR KNEE 3 VW LEFT 2022-04-05 00:11:00 Chou [facility] Andrea XR FOOT 3+ VW LEFT 2022-04-05 00:11:00 Chou [facility] Andrea XR PELVIS 3+ VW 2022-04-05 00:11:00 Flo [facility] XR KNEE <3 VW RIGHT 2022-04-05 00:11:00 Flo [facility] XR FOOT 3+ VW LEFT 2022-04-05 00:11:00 Chou [facility] Andrea XR KNEE <3 VW RIGHT 2022-04-05 00:11:00 Flo [facility] Medical [place] XR KNEE 3 VW LEFT 2022-04-05 00:11:00 José Antonio [facility] Jennifer, [facility] Andrea XR PELVIS 3+ VW 2022-04-05 00:11:00 Flo [facility] XR SHOULDER 2+ VW RIGHT 2022-04-05 00:11:00 Chou [facility] Andrea HB ECG ROUTINE & RHYTHM 2022-04-04 23:08:36 Chou [facility] ALEXANDER [facility] Andrea HB ECG ROUTINE & RHYTHM 2022-04-04 23:08:[facility] HB ABO GROUPING 2022-04-04 19:55:00 Nolvia Husain [facility] HB ABO GROUPING 2022-04-04 19:55:00 Nolvia Husain [facility] CT TRAUMA HEAD WO 2022-04-04 19:10:01 Nolvia Husain [facility] CONTRAST Medical Branch CT TRAUMA CERVICAL SPINE 2022-04-04 19:10:01 Nolvia Husain [facility] CONTRAST Medical Branch CT TRAUMA THORACIC SPINE 2022-04-04 19:10:01 Nolvia Husain [facility] CONTRAST Medical Branch CT TRAUMA LUMBAR SPINE WO 2022-04-04 19:10:01 [facility] Branch CT TRAUMA HEAD WO 2022-04-04 19:10:01 Nolvia Husain [facility] CONTRAST Medical Branch CT TRAUMA CERVICAL SPINE 2022-04-04 19:10:01 Nolvia Husain [facility] CONTRAST Medical Branch CT TRAUMA THORACIC SPINE 2022-04-04 19:10:01 Nolvia Husain [facility] CONTRAST Medical Branch CT TRAUMA LUMBAR SPINE WO 2022-04-04 19:10:01 [facility]via [facility] CONTRAST Medical Branch CT TRAUMA THORAX W 2022-04-04 19:08:26 Nolvia Husain [facility] CONTRAST Medical Branch CT TRAUMA ABDOMEN PELVIS 2022-04-04 19:08:26 Nolvia Husain [facility] [place] [facility] CONTRAST Medical Branch CT TRAUMA THORAX W 2022-04-04 19:08:26 Nolvia Husain [facility] CONTRAST Medical Branch CT TRAUMA ABDOMEN PELVIS 2022-04-04 19:08:26 Nolvia Husain [facility] W CONTRAST Medical Branch ABORH CONFIRMATION (LAB 2022-04-04 19:02:00 Nolvia Husain [facility] ONLY) Medical Branch ABORH CONFIRMATION (LAB 2022-04-04 19:02:00 Nolvia Husain [facility] ONLY) Medical Branch LIPASE 2022-04-04 18:35:00 Nolvia Husain [facility] Branch TEST, SERUM 2022-04-04 18:35:00 Nolvia Husain [facility] COMP. METABOLIC PANEL 2022-04-04 18:35:00 Nolvia Husain [facility] ([id number]) Medical Branch COMP. METABOLIC PANEL 2022-04-04 18:35:00 Nolvia Husain [facility] ([id number]) Medical Branch LIPASE 2022-04-04 18:35:00 Nolvia Husain [facility] TEST, SERUM 2022-04-04 18:35:00 Nolvia Husain [facility] CBC WITH DIFF 2022-04-04 18:20:00 Nolvia Husain [facility] CBC WITH DIFF 2022-04-04 18:20:00 Nolvia Husain [facility] EMERGENCY SERVICES 2022-04-04 05:01:00 Doctor Rosamariasslanette, [facility] AGREEMENTS AND [facility] AUTHORIZATIONS EMERGENCY DEPARTMENT 2022-04-04 05:01:00 Doctor Unasslanette, [facility] DOCUMENTS [facility] EMERGENCY SERVICES 2022-04-04 05:01:00 Doctor Fidel, [facility] AGREEMENTS AND [facility] AUTHORIZATIONS EMERGENCY DEPARTMENT 2022-04-04 05:01:00 Doctor Unassigned, [facility] DOCUMENTS [facility] POCT TEST 2022-04-01 04:37:00 Deonna Melendrez [facility] Branch POCT TEST 2022-04-01 04:37:00 Deonna Melendrez [facility] Medical Branch LIPASE 2022-04-01 04:36:00 Deonna Melendrez [facility] COMP. METABOLIC PANEL 2022-04-01 04:36:00 Deonna Melendrez [facility] ([id number]) Medical Branch CBC WITH DIFF 2022-04-01 04:36:00 Deonna Melendrez [facility] URINALYSIS 2022-04-01 04:36:00 Deonna Melendrez [facility] CBC WITH DIFF 2022-04-01 04:36:00 Deonna Melendrez [facility] COMP. METABOLIC PANEL 2022-04-01 04:36:00 Deonna Melendrez [facility] ([id number]) [facility] URINALYSIS 2022-04-01 04:36:00 Deonna Melendrez [facility] LIPASE 2022-04-01 04:36:00 Deonna Melendrez [facility] NOTICE OF PRIVACY 2022-04-01 03:37:12 Doctor Jadeigned, [facility] PRACTICES [place] [facility] [place] NOTICE OF PRIVACY 2022-04-01 03:37:12 Doctor Unassigned, [facility] [place] [facility] [place] CONSENT/REFUSAL FOR 2022-04-01 03:36:55 Doctor Fidel [facility] DIAGNOSIS AND TREATMENT [facility] CONSENT/REFUSAL FOR 2022-04-01 03:36:55 Doctor Fidel [facility] DIAGNOSIS AND TREATMENT [facility] EMERGENCY SERVICES 2022-03-31 05:01:00 Doctor Fidel, [facility] AGREEMENTS AND [place] [facility] [place] AUTHORIZATIONS SARS-COV-2 COVID-19 2022-03-17 16:49:14 Doctor Fidel [facility] MIKE-SUCROSE VACCINE 12 [facility] YRS+, BIVALENT 0.3ML, IM, (PFIZER ARITA TOP BOOSTER) SARS-COV-2 COVID-19 2022-03-17 16:49:14 Doctor Rosamariasslanette, [facility] MIKE-SUCROSE VACCINE 12 [facility] YRS+, BIVALENT 0.3ML, IM, (PFIZER ARITA TOP BOOSTER) XR PELVIS 3+ VW 2022-02-24 18:13:00 Bouchra Rizzo o f [facility] EXTERNAL PROVIDER RECORDS 2022-02-22 05:01:00 Doctor Jadeigned, [facility] EMERGENCY SERVICES 2022-01-23 05:01:00 Doctor Fidel, [facility] AGREEMENTS AND [facility] AUTHORIZATIONS EMERGENCY DEPARTMENT 2022-01-23 05:01:00 Doctor Unassigned, [facility] DOCUMENTS [facility] Encounters Start End Encounter Admission Attending Care Care Encounter Source Date/Time Date/Time Type Type Clinicians Facility Department ID 2021-11-02 Outpatient [facility] [id number] [place] 11:00:33 [id number] Health 2021-07-09 Inpatient [facility] [id number] [facility] 12:46:00 14 2021-05-25 Inpatient [facility] [id number] [facility] 23:19:00 94 2021-04-30 Emergency [facility] [id number] Univers 23:08:18 ity [facility] 2022-05-23 2022-05-23 [facility] [id number] Univers 10:15:00 10:15:00 [facility] 2022-05-19 2022-05-19 [facility] 1.2.840.114 [id number] Univers 10:33:33 23:59:00 Encounter [place] PRIMARY 350.1.13.10 [id number] [place] dical [address] [place] 2022-05-19 2022-05-19 Office [facility] 1.2.096.796 [id number] Univers 12:50:00 12:50:00 Visit [place] PRIMARY 350.1.13.10 [place] [id number] [place] dical [address] [place] 2022-05-19 2022-05-19 Outpatient R [facility] [id number] Univers 12:50:00 12:42:46 BOUCHRA [facility] 2022-05-19 2022-05-19 Travel 1.2.840.1 1.2.761.424 [id number] Univers 00:00:00 00:00:00 97090.1.1 350.1.13.10 ity of 3.104.2.7 [place]3.698 [place].79[place] 084.8 Medica l .8 [place] 2022-05-02 2022-05-02 Outpatient R REYNALDO, [facility] [id number] Univers 08:45:00 09:32:43 JAMES ity o f [facility] 2022-05-02 2022-05-02 Travel 1.2.840.1 1.2.675.767 [id number] Univers 00:00:00 00:00:00 88095.1.1 350.1.13.10 ity of 3.104.2.7 [place]7.3.698 [place] .3.9870[place] 084.8 Medica l .[place] 2022-04-21 2022-04-21 [facility] [id number] Univers 15:08:38 23:59:00 BOUCHRA ity of [facility] 2022-04-21 2022-04-21 [facility], 1.2.840.2 [id number] Univers 15:08:38 23:59:00 Encounter Bouchra 56142.1.1 it y of 3.104.2.7 [place] .3.609537 Medica l .[address] [place] 2022-04-21 2022-04-21 [facility], 1.2.840.9 [id number] Univers 15:20:00 16:19:45 Visit Bouchra 65011.1.1 ity of 3.104.2.7 [place] .3.213788 Medica l .[address] [place] 2022-04-21 2022-04-21 Travel 1.2.840.1 1.2.503.327 [id number] Univers 00:00:00 00:00:00 43801.1.1 350.1.13.10 ity of 3.104.2.7 [place]7.3.698 [place] .3.494566 084.8 Medica l .8 [place] 2022-04-10 2022-04-10 Emergency X ROBLEDO, [facility] ERT [id number] Univers 17:11:00 22:14:00 IRASEMA ity of [facility] 2022-04-10 2022-04-10 Emergency Robledo, 1.2.840.8 [id number] Univers 17:11:00 22:14:00 Irasema 85357.1.1 ity of 3.104.2.7 [place] .3.467733 Medica l .8 [place] 2022-04-10 2022-04-10 Urgent MariShivani gardner 1.2.840.1 [id number] Univers 16:40:00 18:22:07 [facility] 64330.1.1 ity of 3.104.2.7 [place] .3.362046 Medica l .8 [place] 2022-04-10 2022-04-10 Outpatient R MARI [facility] [id number] Univers 16:40:00 16:40:00 SHIVANI ity o f [facility] 2022-04-10 2022-04-10 Travel 1.2.840.1 1.2.078.616 [id number] Univers 00:00:00 00:00:00 21097.1.1 350.1.13.10 ity of 3.104.2.7 [place]7.3.698 [place] .3.4787[place] 084.8 Medica l .8 [place] 2022-04-08 2022-04-08 Transition Moise, 1.2.840.1 [id number] Univers 00:00:00 00:00:00 of Care Negrita 00504.1.1 i ty of 3.104.2.7 [place] .3.877735 Medica l .8 [place] 2022-04-04 2022-04-07 Hospital Person, 1.2.840.5 [id number] Univers 17:33:00 17:00:00 Encounter Keagan 57730.1.1 it y of 3.104.2.7 [place] .3.189305 Medica l .[address] [place] 2022-04-06 2022-04-06 [facility], 1.2.840.2 [id number] Univers 00:00:00 00:00:00 Management Care 50950.1.1 i ty of Transition 3.104.2.7 Harley as .3.415908 Medica l .[address] [place] 2022-04-04 2022-04-04 [facility] [id number] Univers 12:41:00 16:56:00 NOLVIA ity [facility] 2022-04-04 2022-04-04 Emergency [facility] [id number] Univers 12:41:00 16:56:00 NOLVIA ity [facility] 2022-04-04 2022-04-04 Emergency Husain, 1.2.840.0 [id number] Univers 12:41:00 16:56:00 Nolvia 93229.1.1 ity of 3.104.2.7 [place] .3.689143 Medica l .8 [place] 2022-04-04 2022-04-04 Travel 1.2.840.1 1.2.162.190 [id number] Univers 00:00:00 00:00:00 91572.1.1 350.1.13.10 ity of 3.104.2.7 [place].3.698 [place] .3.813274 084.8 Medica l .8 [place] 2022-03-31 2022-04-01 Emergency [facility] [id number] Univers 22:46:00 01:29:00 DEONNA ity of [facility] 2022-03-31 2022-04-01 Emergency Melendrez, 1.2.840.1 [id number] Univers 22:46:00 01:29:00 Deonna Murillo 68970.1.1 ity of 3.104.2.7 [place] .3.805311 Medica l .8 [place] 2022-03-31 2022-03-31 Orders Doctor 1.2.840.9 [id number] Univers 00:00:00 00:00:00 Only Unassigned, 86078.1.1 ity of [place] 3.104.2.7 [place] .3.699257 Medica l .[address] [place] 2022-03-31 2022-03-31 Travel 1.2.840.1 1.2.441.083 [id number] Univers 00:00:00 00:00:00 21877.1.1 350.1.13.10 ity of 3.104.2.7 [place].7.3.698 [place] .3.681253 084.8 Medica l .8 [place] 2022-03-28 2022-03-28 [facility] [id number] Univers 10:15:00 12:05:24 JAMES ity o f [facility] 2022-03-28 2022-03-28 Travel 1.2.840.1 1.2.598.813 [id number] Univers 00:00:00 00:00:00 98102.1.1 350.1.13.10 ity of 3.104.2.7 [place]7.3.698 [place] .3.455561 084.8 Medica l .8 [place] 2022-03-17 2022-03-17 Imm/Inj Vignesh Mack P 1.2.840.1 [id number] Univers 11:30:00 12:25:54 Visit Ana Luisa [facility] 57269.1.1 ity of 3.104.2.7 [place] .3.675741 Medica l .[place] 2022-03-17 2022-03-17 [facility] [id number] Univers 10:30:00 11:13:04 VIGNESH ity of [facility] 2022-03-17 2022-03-17 Travel 1.2.840.1 1.2.836.111 [id number] Univers 00:00:00 00:00:00 10755.1.1 350.1.13.10 ity of 3.104.2.7 [place]7.3.698 [place] .3.305511 084.8 Medica l .8 [place] 2022-02-24 2022-02-24 [facility], 1.2.840.4 [id number] Univers 13:02:19 23:59:00 Encounter Bouchra 40887.1.1 it y of 3.104.2.7 [place] .3.112859 Medica l .[place] 2022-02-24 2022-02-24 [facility], 1.2.840.3 [id number] Univers 13:02:19 23:59:00 Encounter Bouchra 89328.1.1 it y of 3.104.2.7 [place] .3.238157 Medica l .[place] 2022-02-24 2022-02-24 Outpatient R ARNALDO [facility] [id number] Univers 13:00:00 14:33:28 BOUCHRA ity of [facility] 2022-02-24 2022-02-24 [facility], 1.2.840.5 [id number] Univers 13:00:00 14:33:28 Visit Bouchra 17213.1.1 ity of 3.104.2.7 [place] .3.987180 Medica l .[place] 2022-02-24 2022-02-24 Outpatient R ARNALDO [facility] [id number] Univers 13:00:00 13:00:00 BOUCHRA ity of [facility] 2022-02-24 2022-02-24 Travel 1.2.840.1 1.2.914.163 [id number] Univers 00:00:00 00:00:00 60154.1.1 350.1.13.10 ity of 3.104.2.7 4.2.7[place]3.698 [place] .3.472854 084.8 Medica l .8 [place] 2022-02-22 2022-02-22 Orders Doctor 1.2.840.8 [id number] Univers 00:00:00 00:00:00 Only Unassigned, 50518.1.1 ity of [place] 3.104.2.7 [place] .3.000507 Medica l .8 [place] 2022-02-22 2022-02-22 Orders Doctor 1.2.840.9 [id number] Univers 00:00:00 00:00:00 Only Unassigned, 24077.1.1 ity of [place] 3.104.2.7 [place] .3.396415 Medica l .8 [facility] 2022-02-21 2022-02-21 Outpatient R SELF, [facility] [id number] Univers 08:00:00 08:48:33 JAMES ity o f [facility] 2022-02-21 2022-02-21 Travel 1.2.840.1 1.2.969.043 7977 9562 Univers 00:00:00 00:00:00 62385.1.1 350.1.13.10 ity of 3.104.2.[place].3.698 [place].1735[place] 084.8 Med[place] l .8 [place] 2022-02-21 2022-02-21 Travel 1.2.840.1 1.2.134.053 0103 9562 Univers 00:00:00 00:00:00 25382.1.1 350.1.13.10 ity of 3.104.2.7 [place]7.3.698 [place] .3.151408 084.8 [place] .8 [place] 2022-01-23 2022-01-23 Emergency X CHECO, K [facility] ERT [id number] Univers 19:42:00 21:04:00 ity of [facility] 2022-01-23 2022-01-23 Emergency Checo, K 1.2.840.0 [id number] Univers 19:42:00 21:04:00 Bree 53641.1.1 ity of 3.104.2.7 [place] .3.340222 Medica l .8 [place] 2022-01-23 2022-01-23 Emergency Checo, K 1.2.840.1 [id number] Univers 19:42:00 21:04:00 Bree 85320.1.1 ity of 3.104.2.7 [place] .3.857572 Medica l .8 [place] 2022-01-23 2022-01-23 Travel 1.2.840.1 1.2.614.446 6895 2965 Univers 00:00:00 00:00:00 02795.1.1 350.1.13.10 ity of 3.104.2.7 [place].3.698 [place]3.104101 084.8 Med[place] l .8 [place] 2022-01-23 2022-01-23 Travel 1.2.840.1 1.2.505.605 9808 2965 Univers 00:00:00 00:00:00 65756.1.1 350.1.13.10 ity of 3.104.2.7 [place].3.698 [place]3.934434 084.8 Med[place] l .8 [place] 2022-01-17 2022-01-17 Outpatient R SELF, [facility] [id number] Univers 10:15:00 11:23:04 JAMES bernaladrian [facility] 2022-01-17 2022-01-17 Outpatient R SELF, [facility] [id number] Univers 10:15:00 11:23:04 JAMES bernaladrian [facility] 2022-01-17 2022-01-17 Travel 1.2.840.1 1.2.440.430 2901 6960 Univers 00:00:00 00:00:00 80775.1.1 350.1.13.10 ity of 3.104.2.7 [place]7.3.698 [place] .3.909[place] 084.8 [place] l .8 [place] 2022-01-17 2022-01-17 Travel 1.2.840.1 1.2.209.568 0479 6960 Univers 00:00:00 00:00:00 35504.1.1 350.1.13.10 ity of 3.104.2.7 [place]7.3.698 [place] .3.523730 084.8 Med[place] l .8 [place] 2021-12-31 2021-12-31 Outpatient R ASH RAMIREZ [facility] [id number] Univers 16:00:00 17:22:54 ity of [facility] 2021-12-31 2021-12-31 Office Ash Ramirez 1.2.840.4 [id number] Univers 16:00:00 17:22:54 Visit Maggie Brooks 15788.1.1 ity of 3.104.2.7 [place] .3.785702 Medica l .8 [place] 2021-12-31 2021-12-31 Office Ash Ramirez 1.2.840.4 [id number] Univers 16:00:00 17:22:54 Visit Maggie Brooks 99436.1.1 ity of 3.104.2.7 [place] .3.956599 Medica l .8 [place] 2021-12-31 2021-12-31 Outpatient R ASH RAMIREZ [facility] [id number] Univers 16:00:00 16:00:00 ity of [facility] 2021-12-31 2021-12-31 Travel 1.2.840.1 1.2.437.179 1977 7179 Univers 00:00:00 00:00:00 47852.1.1 350.1.13.10 ity of 3.104.2.7 4.[place].7.3.698 [place] .3.114639 084.8 Medica l .8 [place] 2021-12-31 2021-12-31 Travel 1.2.840.1 1.2.362.732 7637 7179 Univers 00:00:00 00:00:00 74546.1.1 350.1.13.10 ity of 3.104.2.7 4.[place].7.3.698 [place] .3.239666 084.8 Med[place] l .8 [place] 2021-12-20 2021-12-20 Outpatient R SELF [facility] [id number] Univers 10:30:00 11:58:18 JAMES ity o f [facility] 2021-12-20 2021-12-20 Travel 1.2.840.1 1.2.741.882 3699 9777 Univers 00:00:00 00:00:00 84914.1.1 350.1.13.10 ity of 3.104.2.7 4.[place].7.3.698 [place] .3.283295 084.8 Med[place] l .8 [place] 2021-12-20 2021-12-20 Travel 1.2.840.1 1.2.422.337 6133 9777 Univers 00:00:00 00:00:00 46792.1.1 350.1.13.10 ity of 3.104.2.7 4.[place].7.3.698 [place] .3.890324 084.8 Medica l .8 [place] 2021-12-20 2021-12-20 Travel 1.2.840.1 1.2.213.108 5502 9777 [facility] 00:00:00 00:00:00 10759.1.1 350.1.13.10 ity of 3.104.2.7 4.[place].7.3.698 [place] .3.428459 084.8 [place] l .8 [place] 2021-12-13 2021-12-13 [facility] [id number] Univers 08:00:00 08:00:00 HANDY erickson [facility] 2021-12-06 2021-12-06 Urgent Shivani Guerra 1.2.840.1 02744 [id number] Univers 12:00:00 12:16:45 Akiko Gonzalez 33832.1.1 ity of 3.104.2.7 [place] .3.678230 Medica l .8 [place] 2021-12-06 2021-12-06 Urgent MariShivani gardner 1.2.840.1 07963 [id number] Univers 12:00:00 12:16:45 Akiko Gonzalez 25027.1.1 ity of 3.104.2.7 [place] .3.810869 Medica l .8 [place] 2021-12-06 2021-12-06 [facility] [id number] Univers 12:00:00 12:16:45 AKIKO erickson [facility] 2021-12-06 2021-12-06 Shivani Patel 1.2.840.1 75041 [id number] [facility] 12:00:00 12:16:45 Eros VossAkiko 56575.1.1 ity of 3.104.2.7 [place] .3.155653 Medica l .8 [place] 2021-12-06 2021-12-06 Travel 1.2.840.1 1.2.085.885 8836 2730 Univers 00:00:00 00:00:00 59602.1.1 350.1.13.10 ity of 3.104.2.7 4.2.7.3.698 [place] .3.199972 084.8 Med[place] l .8 [place] 2021-12-06 2021-12-06 Travel 1.2.840.1 1.2.410.384 5429 2730 Univers 00:00:00 00:00:00 43462.1.1 350.1.13.10 ity of 3.104.2.7 4.2.7.3.698 [place] .3.382809 084.8 Medica l .8 [place] 2021-12-06 2021-12-06 Travel 1.2.840.1 1.2.751.430 3361 2730 Univers 00:00:00 00:00:00 57200.1.1 350.1.13.10 ity of 3.104.2.7 4.[place].7.3.698 [place] .3.120666 084.8 Med[place] l .8 [place] 2021-11-26 2021-11-26 Office Ash Ramirez 1.2.840.3 [id number] [facility] 15:00:00 15:40:48 Visit 15852.1.1 ity of 3.104.2.7 [place] .3.511197 Medica l .8 [place] 2021-11-26 2021-11-26 Outpatient R ASH RAMIREZ [facility] [id number] [facility] 15:00:00 15:40:48 ity of [facility] 2021-11-26 2021-11-26 Office Ash Ramirez 1.2.840.3 [id number] Univers 15:00:00 15:40:48 Visit 78945.1.1 ity of 3.104.2.7 [place] .3.741796 Med[place] l .8 [place] 2021-11-26 2021-11-26 Outpatient R ASH RAMIREZ [facility] [id number] Univers 15:00:00 15:00:00 ity of [facility] 2021-11-26 2021-11-26 Travel 1.2.840.1 1.2.094.848 8561 4215 Univers 00:00:00 00:00:00 81734.1.1 350.1.13.10 ity of 3.104.2.7 4.[place].7.3.698 [place] .3.621055 084.8 Med[place] l .8 [place] 2021-11-26 2021-11-26 Travel 1.2.840.1 1.2.091.954 5316 4215 Univers 00:00:00 00:00:00 02930.1.1 350.1.13.10 ity of 3.104.2.7 4.2.7.3.698 [place] .3.817035 084.8 Med[place] l .8 [place] 2021-11-23 2021-11-23 Outpatient R ASH RAMIREZ [facility] [id number] Univers 14:00:00 14:00:00 ity of [facility] 2021-11-19 2021-11-19 [facility], 1.2.840.4 [id number] [id number] Univers 17:58:13 23:59:00 Encounter Vania 54948.1.1 it y of 3.104.2.7 [place] .3.000642 Medica l .8 [place] 2021-11-19 2021-11-19 [facility] [id number] Univers 17:58:13 23:59:00 RANIA ity of [facility] 2021-11-19 2021-11-19 [facility] 1.2.450.314 9883 [id number] Univers 17:58:13 23:59:00 Encounter [facility] 350.1.13.10 ity of [place] 4.2.7.2.686 Harley as OLIVIA?BLEA [id number] Az dical EY [address] [place] [facility] OFF[facility] 2021-11-19 2021-11-19 [facility] 1.2.840.1 [id number] Univers 17:58:13 23:59:00 Encounter Vania 48734.1.1 it y of 3.104.2.7 [place] .3.555850 Medica l .8 [place] 2021-11-19 2021-11-19 Urgent Ebrahim, 1.2.840.1 [id number] Univers 17:20:00 18:04:46 Care Rania 02312.1.1 ity of 3.104.2.7 [place] .3.626966 Medica l .8 [place] 2021-11-19 2021-11-19 Urgent Ebrahim, [facility] 1.2.840.114 79900 569 Univers 17:20:00 18:04:46 Care [facility] HE[facility] 350.1.13.10 it y of [place] 4.2.7.2.686 Harley as OLIVIA?BLEA [id number] Az dical KENZIE [address] [place] MED[facility] 2021-11-19 2021-11-19 Urgent Ebrahim, 1.2.840.4 [id number] [id number] Univers 17:20:00 18:04:46 Care Rania 28222.1.1 ity of 3.104.2.7 [place] .3.657005 Medica l .8 [place] 2021-11-19 2021-11-19 Travel 1.2.840.1 1.2.815.352 1173 4086 Univers 00:00:00 00:00:00 52120.1.1 350.1.13.10 ity of 3.104.2.7 4.[place]7.3.698 [place] .3.463889 084.8 Med[place] l .8 [place] 2021-11-19 2021-11-19 Travel 1.2.840.1 1.2.018.043 0396 4086 Univers 00:00:00 00:00:00 93471.1.1 350.1.13.10 ity of 3.104.2.7 4.2.7.3.698 [place] .3.781527 084.8 Med[place] l .8 [place] 2021-11-17 2021-11-17 Outpatient R LUCINDA WILLS [facility] [id number] Univers 14:45:00 14:45:00 ity of [facility] 2021-11-17 2021-11-17 Outpatient R LUCINDA WILLS [facility] [id number] Univers 14:45:00 14:45:00 ity of [facility] 2021-11-16 2021-11-16 Telephone Lucinda Wills 1.2.840.8 [id number] Univers 00:00:00 00:00:00 Cam 27318.1.1 ity of 3.104.2.7 [place] .3.919171 Medica l .8 [place] 2021-11-16 2021-11-16 Telephone Lucinda Wills 1.2.840.4 [id number] Univers 00:00:00 00:00:00 Cam 82571.1.1 ity of 3.104.2.7 [place] .3.011652 Medica l .8 [place] 2021-11-16 2021-11-16 Telephone Nataly Willsen 1.2.840.3 [id number] Univers 00:00:00 00:00:00 Cam 26772.1.1 ity of 3.104.2.7 [place] .3.744811 Medica l .8 [place] 2021-11-08 2021-11-08 Outpatient R REYNALDO [facility] [id number] Univers 11:15:00 11:40:32 JAMES ity o f [facility] 2021-11-08 2021-11-08 Travel 1.2.840.1 1.2.613.604 5854 9142 Univers 00:00:00 00:00:00 99999.1.1 350.1.13.10 ity of 3.104.2.7 4.2.7.3.698 [place] .3.322305 084.8 Med[facility] l .8 [place] 2021-11-08 2021-11-08 Travel 1.2.840.1 1.2.534.229 2184 9142 Univers 00:00:00 00:00:00 60855.1.1 350.1.13.10 ity of 3.104.2.7 4.2.7.3.698 [place] .3.759743 084.8 Medica l .8 [place] 2021-11-08 2021-11-08 Travel 1.2.840.1 1.2.182.112 9212 9142 Univers 00:00:00 00:00:00 19753.1.1 350.1.13.10 ity of 3.104.2.7 4.2.7.3.698 [place] .3.828560 084.8 Medica l .8 [place] 2021-10-29 2021-10-29 Office Lucinda Wills 1.2.840.3 [id number] [id number] Univers 13:00:00 13:28:21 Visit Cam 44068.1.1 ity of 3.104.2.7 [place] .3.889223 Medica l .8 [place] 2021-10-29 2021-10-29 Office Lucinda Wills 1.2.840.8 [id number] [id number] Univers 13:00:00 13:28:21 Visit Cam 92297.1.1 ity of 3.104.2.7 [place] .3.780885 Medica l .8 [place] 2021-10-29 2021-10-29 Outpatient R LUCINDA WILLS [facility] [id number] Univers 13:00:00 13:28:21 ity of [facility] 2021-10-29 2021-10-29 Office Lucinda Wills 1.2.840.4 [id number] [facility] 13:00:00 13:28:21 Visit Cam 67510.1.1 ity of 3.104.2.7 [place] .3.516480 Medica l .8 [place] 2021-10-29 2021-10-29 Outpatient R LUCINDA WILLS [facility] [id number] Univers 13:00:00 13:00:00 ity of [facility] 2021-10-29 2021-10-29 Outpatient LUCINDA PHAN [facility] [id number] Univers 13:00:00 13:00:00 ity of [facility] 2021-10-29 2021-10-29 Travel 1.2.840.1 1.2.515.272 5081 6547 Univers 00:00:00 00:00:00 83093.1.1 350.1.13.10 ity of 3.104.2.7 4.2.7.3.698 [place] .3.213499 084.8 Medica l .8 [place] 2021-10-29 2021-10-29 Travel 1.2.840.1 1.2.478.531 3682 6547 Univers 00:00:00 00:00:00 78586.1.1 350.1.13.10 ity of 3.104.2.7 4.2.7.3.698 [place] .3.713539 084.8 Medica l .8 [place] 2021-10-29 2021-10-29 Travel 1.2.840.1 1.2.131.568 8105 6547 Univers 00:00:00 00:00:00 43480.1.1 350.1.13.10 ity of 3.104.2.7 4.2.7.3.698 [place] .3.617078 084.8 Medica l .8 [place] 2021-10-27 2021-10-27 Outpatient Escobar RODERICKALTAFSHIVANI [facility] [id number] Univers 14:30:00 15:05:35 SHIVANI VAUGHN [facility] 2021-10-27 2021-10-27 Outpatient R SHIVANI VAUGHN [facility] [id number] Univers 14:30:00 14:30:00 SHIVANI VAUGHN [facility] 2021-10-27 2021-10-27 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 1.2.840.1 [id number] Univers 12:30:00 12:45:00 Visit Pcp-Lab 60873.1.1 ity of 3.104.2.7 [place] .3.002311 Medica l .8 [place] 2021-10-27 2021-10-27 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 1.2.840.1 [id number] [facility] 12:30:00 12:45:00 Visit Pcp-Lab 61430.1.1 ity of 3.104.2.7 [place] .3.830912 Medica l .8 [place] 2021-10-27 2021-10-27 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 1.2.840.1 [id number] [facility] 12:30:00 12:45:00 Visit Pcp-Lab 28666.1.1 ity of 3.104.2.7 [place] .3.760436 Medica l .8 [place] 2021-10-27 2021-10-27 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 1.2.840.1 [id number] [facility] 12:30:00 12:45:00 Visit Pcp-Lab 64405.1.1 ity of 3.104.2.7 [place] .3.199454 Medica l .8 [place] 2021-10-27 2021-10-27 Travel 1.2.840.1 1.2.996.405 8656 7104 [facility] 00:00:00 00:00:00 60260.1.1 350.1.13.10 ity of 3.104.2.7 4.2.7.3.698 [place] .3.327833 084.8 Medica l .8 [place] 2021-10-27 2021-10-27 Travel 1.2.840.1 1.2.001.373 9048 7104 [facility] 00:00:00 00:00:00 35435.1.1 350.1.13.10 ity of 3.104.2.7 4.2.7.3.698 [place] .3.776956 084.8 Medica l .8 [place] 2021-10-27 2021-10-27 Travel 1.2.840.1 1.2.674.771 2975 7104 [facility] 00:00:00 00:00:00 69081.1.1 350.1.13.10 ity of 3.104.2.7 4.2.7.3.698 [place] .3.194923 084.8 [facility] .[facility] [place] 2021-10-27 2021-10-27 Travel 1.2.840.1 1.2.887.015 3038 7104 [facility] 00:00:00 00:00:00 41374.1.1 350.1.13.10 ity of 3.104.2.7 4.2.7.3.698 [place] .3.067984 084.8 Med[facility] l .8 [place] 2021-10-06 2021-10-06 SHIVANI Hamm [facility] [id number] [facility] 15:15:00 16:31:02 SHIVANI VAUGHN itadrian [facility] 2021-10-06 2021-10-06 Travel 1.2.840.1 1.2.481.345 0963 3199 [facility] 00:00:00 00:00:00 10946.1.1 350.1.13.10 ity of 3.104.2.7 4.2.7.3.698 [place] .3.722849 084.8 Med[facility] l .8 [place] 2021-10-06 2021-10-06 Travel 1.2.840.1 1.2.766.793 2376 3199 [facility] 00:00:00 00:00:00 74569.1.1 350.1.13.10 ity of 3.104.2.7 4.2.7.3.698 [place] .3.378836 084.8 Medica l .8 [place] 2021-10-06 2021-10-06 Travel 1.2.840.1 1.2.142.358 9219 3199 [facility] 00:00:00 00:00:00 68940.1.1 350.1.13.10 ity of 3.104.2.7 4.2.7.3.698 [place] .3.850557 084.8 Medica l .8 [place] 2021-09-13 2021-09-13 Outpatient R SELF, [facility] [id number] Univers 11:00:00 11:00:00 JAMES erickson o f [facility] 2021-09-02 2021-09-02 Outpatient R GEOVANNI, [facility] [id number] Univers 13:00:00 13:00:00 HONORIO ity [facility] 2021-09-02 2021-09-02 Outpatient R GEOVANNI, [facility] [id number] Univers 13:00:00 13:00:00 HONORIO ity [facility] 2021-09-02 2021-09-02 Travel 1.2.840.1 1.2.448.334 6802 361 Univers 00:00:00 00:00:00 18285.1.1 350.1.13.10 ity of 3.104.2.7 4.2.7.3.698 [place] .3.953391 084.8 Medica l .8 [place] 2021-09-02 2021-09-02 Travel 1.2.840.1 1.2.952.547 4849 361 Univers 00:00:00 00:00:00 30024.1.1 350.1.13.10 ity of 3.104.2.7 4.2.7.3.698 [place] .3.420160 084.8 Medica l .8 [place] 2021-09-02 2021-09-02 Travel 1.2.840.1 1.2.459.182 3129 361 Univers 00:00:00 00:00:00 70069.1.1 350.1.13.10 ity of 3.104.2.7 4.2.7.3.698 [place] .3.294619 084.8 Medica l .8 [place] 2021-08-26 2021-08-26 Outpatient R ARNALDO, [facility] [id number] Univers 12:59:32 23:59:00 BOUCHRA ity [facility] 2021-08-26 2021-08-26 [facility] Arnaldo, 1.2.840.2 [id number] Univers 12:59:32 23:59:00 Encounter Bouchra 67352.1.1 it y of 3.104.2.7 [place] .3.657328 Medica l .8 [place] 2021-08-26 2021-08-26 [facility], 1.2.840.7 [id number] Univers 12:59:32 23:59:00 Encounter Bouchra 64630.1.1 it y of 3.104.2.7 [place] .3.094201 Medica l .8 [place] 2021-08-26 2021-08-26 [facility], 1.2.840.9 [id number] Univers 12:59:32 23:59:00 Encounter Bouchra 18805.1.1 it y of 3.104.2.7 [place] .3.150245 Medica l .8 [place] 2021-08-26 2021-08-26 [facility] [id number] Univers 13:00:00 13:47:55 BOUCHRA ity of [facility] 2021-08-26 2021-08-26 Office [facility], 1.2.840.0 [id number] [id number] Univers 13:00:00 13:47:55 Visit Bouchra 79800.1.1 ity of 3.104.2.7 [place] .3.048107 Medica l .[address] [place] [address] 2021-08-26 2021-08-26 [facility] [id number] [id number] Univers 13:00:00 13:47:55 BOUCHRA ity of [facility] 2021-08-26 2021-08-26 Office Arnaldo, 1.2.840.8 [id number] [id number] Univers 13:00:00 13:47:55 Visit Bouchra 04912.1.1 ity of 3.104.2.7 [place] .3.636000 Medica l .8 [place] 2021-08-26 2021-08-26 Travel 1.2.840.1 1.2.924.466 4179 7347 Univers 00:00:00 00:00:00 00413.1.1 350.1.13.10 ity of 3.104.2.7 4.2.7.3.698 [place] .3.620032 084.8 Medica l .8 [place] 2021-08-26 2021-08-26 Travel 1.2.840.1 1.2.540.969 6122 7347 Univers 00:00:00 00:00:00 15914.1.1 350.1.13.10 ity of 3.104.2.7 4.2.7.3.698 [place] .3.295688 084.8 Medica l .8 [place] 2021-08-26 2021-08-26 Travel 1.2.840.1 1.2.762.699 6302 7347 [facility] 00:00:00 00:00:00 88515.1.1 350.1.13.10 ity of 3.104.2.7 4.2.7.3.698 [place] .3.991486 084.8 Medica l .8 [place] 2021-08-03 2021-08-03 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 Sharita, [facility] 1.2.8 40.114 [id number] Univers 17:15:00 17:30:00 Visit [facility]ivani Vaughn [facility] 350.1.13.10 ity of [place] 4[place]2.7.2.[place] PROF[place] [id number] Az dical NAL 353 [facility] 2021-08-03 2021-08-03 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 Shivani Vaughn 1.2.840.8 [id number] Univers 17:15:00 17:30:00 Visit Moshe, [facility] 49246.1.1 ity of 3.104.2.7 [place] .3.224901 Medica l .8 [place] 2021-08-03 2021-08-03 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 Shivani Vaughn 1.2.840.1 [id number] Univers 17:15:00 17:30:00 Visit [facility], [facility] 38282.1.1 ity of 3.104.2.7 [place] .3.725976 Medica l .8 [place] 2021-08-03 2021-08-03 SHIVANI Hamm [facility] [id number] Univers 17:15:00 17:15:00 SHIVANI VAUGHN ity of [facility] 2021-08-02 2021-08-02 Outpatient R REYNALDO, [facility] [id number] Univers 10:15:00 11:07:50 JAMES ity o f [facility] 2021-08-02 2021-08-02 Travel 1.2.840.1 1.2.826.452 8027 6890 Univers 00:00:00 00:00:00 69866.1.1 350.1.13.10 ity of 3.104.2.[place] .3.016837 084.8 Medica l .8 [place] 2021-08-02 2021-08-02 Travel 1.2.840.1 1.2.485.951 5791 6890 Univers 00:00:00 00:00:00 07340.1.1 350.1.13.10 ity of 3.104.2.7 [place].3.698 [place] .3.442282 084.8 Medica l .8 [place] 2021-08-02 2021-08-02 Travel 1.2.840.1 1.2.719.670 7589 6890 Univers 00:00:00 00:00:00 63398.1.1 350.1.13.10 ity of 3.104.2.[place].3.698 [place] .3.910896 084.8 Medica l .8 [place] 2021-07-29 2021-07-29 [facility] [id number] Univers 13:26:56 23:59:00 BOUCHRA ity of [facility] 2021-07-29 2021-07-29 [facility], 1.2.840.7 [id number] Univers 13:26:56 23:59:00 Encounter Bouchra 55809.1.1 it y of 3.104.2.7 [place] .3.112557 Medica l .8 [place] 2021-07-29 2021-07-29 [facility], 1.2.840.9 [id number] Univers 13:26:56 23:59:00 Encounter Bouchra 48824.1.1 it y of 3.104.2.7 [place] .3.398053 Medica l .8 [place] 2021-07-29 2021-07-29 [facility], 1.2.840.1 [id number] Univers 13:26:56 23:59:00 Encounter Bouchra 95983.1.1 it y of 3.104.2.7 [place] .3.792469 Medica l .8 [place] 2021-07-29 2021-07-29 Office [facility] 1.2.731.332 [id number] Univers 13:20:00 15:16:49 Visit Bouchra ARELLANO 350.1.13.10 it y of CARE 4.2.7.2.686 Michelle VALDES [phone] [place] dical 198 [place] 2021-07-29 2021-07-29 [facility] [id number] Univers 13:20:00 15:16:49 BOUCHRA ity of [facility] 2021-07-29 2021-07-29 Office Arnaldo, 1.2.840.6 [id number] Univers 13:20:00 15:16:49 Visit Bouchra 02878.1.1 ity of 3.104.2.7 [place] .3.988426 Medica l .8 [place] 2021-07-29 2021-07-29 Office Arnaldo, 1.2.840.6 [id number] Univers 13:20:00 15:16:49 Visit Bouchra 88121.1.1 ity of 3.104.2.7 [place] .3.635671 Medica l .8 [place] 2021-07-29 2021-07-29 Letter Arnaldo, 1.2.840.4 [id number] Univers 00:00:00 00:00:00 (Out) Bouchra 50516.1.1 ity of 3.104.2.7 [place] .3.172753 Medica l .8 [place] 2021-07-29 2021-07-29 Travel 1.2.840.1 1.2.658.742 6857 [id number] Univers 00:00:00 00:00:00 13718.1.1 350.1.13.10 ity of 3.104.2.7 [place].3.698 [place] .3.824093 084.8 Medica l .8 [place] 2021-07-29 2021-07-29 Letter Arnaldo, 1.2.840.7 [id number] Univers 00:00:00 00:00:00 (Out) Bouchra 37973.1.1 ity of 3.104.2.7 [place] .3.145773 Medica l .8 [place] 2021-07-29 2021-07-29 Travel 1.2.840.1 1.2.406.120 [id number] [id number] Univers 00:00:00 00:00:00 84404.1.1 350.1.13.10 ity of 3.104.2.7 [place].3.698 [place] .3.611561 084.8 Medica l .8 [place] 2021-07-29 2021-07-29 Dustin Rizoz, 1.2.840.7 [id number] Univers 00:00:00 00:00:00 (Out) Bouchra 98288.1.1 ity of 3.104.2.7 [place] .3.262773 Medica l .8 [place] 2021-07-29 2021-07-29 Travel 1.2.840.1 1.2.500.763 6413 9351 Univers 00:00:00 00:00:00 50522.1.1 350.1.13.10 ity of 3.104.2.7 [place].3.698 [place] .3.402407 084.8 Medica l .8 [place] 2021-07-22 2021-07-22 [facility] 1.2.840.114 9 [id number] Univers 14:00:00 23:59:00 Ryan Burnham 350.1.13.10 ity of [place] 4.2.7.2.686 [facility] [id number] [facility] torito [address] [place] 2021-07-22 2021-07-22 [facility] 1.2.840.4 [id number] Univers 14:00:00 23:59:00 Encounter , Ryan 80673.1.1 it y of 3.104.2.7 [place] .3.404841 Medica l .8 [place] 2021-07-22 2021-07-22 [facility] 1.2.840.2 [id number] Univers 14:00:00 23:59:00 Encounter , Ryan 65251.1.1 it y of 3.104.2.7 [place] .3.163303 Medica l .8 [place] 2021-07-22 2021-07-22 [facility] 1.2.840.1 [id number] Univers 14:00:00 23:59:00 Encounter , Ryan 20471.1.1 it y of 3.104.2.7 [place] .3.569677 Medica l .8 [place] 2021-07-22 2021-07-22 [facility] 1.2.840.114 9 [id number] Univers 10:46:11 13:59:00 Encounter , Ryan SPECIALTY 350.1.13.10 ity of CARE 4.2.7.2.686 [place] [facility] AT [phone] Az janesbill CALHOUN 809 [facility] 2021-07-22 2021-07-22 [facility] 1.2.840.1 [id number] Univers 10:46:11 13:59:00 Encounter , Ryan 71983.1.1 it y of 3.104.2.7 [place] .3.775849 Medica l .8 [place] 2021-07-22 2021-07-22 [facility] 1.2.840.6 [id number] Univers 10:46:11 13:59:00 Encounter , Ryan 16217.1.1 it y of 3.104.2.7 [place] .3.003765 Medica l .8 [place] 2021-07-22 2021-07-22 [facility] 1.2.840.4 [id number] Univers 10:46:11 13:59:00 Encounter , Ryan 26054.1.1 it y of 3.104.2.7 [place] .3.921814 Medica l .8 [place] 2021-07-22 2021-07-22 Outpatient R GALARZA, [facility] [id number] Univers 13:00:00 13:45:02 HONORIO ity of [facility] 2021-07-22 2021-07-22 Outpatient R GALARZA, [facility] [id number] Univers 13:00:00 13:45:02 HONORIO ity of [facility] 2021-07-22 2021-07-22 Outpatient R GALARZA, [facility] [id number] Univers 13:00:00 13:00:00 HONORIO ity [facility] 2021-07-22 2021-07-22 Office Alijanipour 1.2.840.6 [id number] Univers 10:15:00 11:55:28 Visit , Ryan 04278.1.1 ity of 3.104.2.7 [place] .3.972272 [facility] [place] 2021-07-22 2021-07-22 [facility] [id number] Univers 10:15:00 11:55:28 , RYAN ity of [facility] 2021-07-22 2021-07-22 Office Alijanipour 1.2.840.6 [id number] Univers 10:15:00 11:55:28 Visit , Yran 95407.1.1 ity of 3.104.2.7 [place] .3.037484 [facility] .[facility] [place] 2021-07-22 2021-07-22 Office Alijanipour 1.2.840.4 [id number] Univers 10:15:00 11:55:28 Visit , Ryan 36965.1.1 ity of 3.104.2.7 [place] .3.652867 [facility] .8 [place] 2021-07-22 2021-07-22 [facility] [id number] Univers 10:46:11 10:46:11 , RYAN ity of [facility] 2021-07-22 2021-07-22 Outpatient R ALIBRANDI [facility] [id number] Univers 10:15:00 10:15:00 , RYAN ity of [facility] 2021-07-22 2021-07-22 Outpatient R ALIBRANDI [facility] [id number] Univers 10:15:00 10:15:00 , RYAN ity of [facility] 2021-07-22 2021-07-22 Abstract Alibrandi 1.2.840.4 [id number] Univers 00:00:00 00:00:00 , Ryan 59862.1.1 ity of 3.104.2.7 [place] .3.095666 [facility] .[facility] [place] 2021-07-22 2021-07-22 Travel 1.2.840.1 1.2.060.856 3479 8425 Univers 00:00:00 00:00:00 63829.1.1 350.1.13.10 ity of 3.104.2.7 [place]3.698 [place] 084.8 [facility] .[facility] [place] 2021-07-22 2021-07-22 Letter Alijanipour 1.2.840.2 [id number] Univers 00:00:00 00:00:00 (Out) , Ryan 57680.1.1 ity of 3.104.2.7 [place] .3.202229 [facility] .8 [place] 2021-07-22 2021-07-22 Letter Alijanipour 1.2.840.6 [id number] Univers 00:00:00 00:00:00 (Out) , Ryan 12325.1.1 ity of 3.104.2.7 [place] .3.683607 [facility] .[facility] [place] 2021-07-22 2021-07-22 Travel 1.2.840.1 1.2.158.850 1363 8425 Univers 00:00:00 00:00:00 32475.1.1 350.1.13.10 ity of 3.104.2.7 [place].3.698 [place] 084.8 [facility] .8 [place] 2021-07-22 2021-07-22 Abstract Alijanipour 1.2.840.2 [id number] Univers 00:00:00 00:00:00 , Ryan 87019.1.1 ity of 3.104.2.7 [place] .3.455980 [facility] .[facility] [place] 2021-07-22 2021-07-22 Letter Alijanipour 1.2.840.3 [id number] Univers 00:00:00 00:00:00 (Out) , Ryan 97389.1.1 ity of 3.104.2.7 [place] .3.708663 [facility] .[facility] [place] 2021-07-22 2021-07-22 Travel 1.2.840.1 1.2.555.046 6711 8425 Univers 00:00:00 00:00:00 71787.1.1 350.1.13.10 ity of 3.104.2.7 [place].3.698 [place].365[place] 084.8 [facility] .[facility] [place] 2021-07-22 2021-07-22 Abstract Alijanipour 1.2.840.6 [id number] Univers 00:00:00 00:00:00 , Ryan 56737.1.1 ity of 3.104.2.7 [place] .3.086617 [facility] .[facility] [place] 2021-07-22 2021-07-22 Letter Alijanipour 1.2.840.4 [id number] Univers 00:00:00 00:00:00 (Out) , Ryan 88144.1.1 ity of 3.104.2.7 [place] .3.410030 [facility] .[facility] [place] 2021-07-22 2021-07-22 Travel 1.2.840.1 1.2.395.779 8805 8425 Univers 00:00:00 00:00:00 57236.1.1 350.1.13.10 ity of 3.104.2.7 [place].3.698 [place] 084.8 [facility] [facility] .[facility] [place] 2021-07-22 2021-07-22 Abstract Benjamín 1.2.840.0 [id number] Univers 00:00:00 00:00:00 , Ryan 17009.1.1 ity of 3.104.2.7 [place] .3.855394 [facility] [place] 2021-07-21 2021-07-21 [facility] [id number] Univers 14:30:00 15:30:35 RODERICK SHIVANIABDIRASHID erickson [facility] 2021-07-21 2021-07-21 Outpatient R RODERICK [facility] [id number] Univers 14:30:00 15:30:35 YUNIOR VAUGHNLY dre [facility] 2021-07-21 2021-07-21 Outpatient R RODERICK [facility] [id number] Univers 14:30:00 14:30:00 RODERICK SHIVANI dre [facility] 2021-07-15 2021-07-15 Orders Doctor 1.2.840.8 [id number] Univers 00:00:00 00:00:00 Only Unassigned, 07767.1.1 ity of [place] 3.104.2.7 [place] .3.851314 [facility] .[facility] [place] 2021-07-15 2021-07-15 Orders Doctor 1.2.840.3 [id number] Univers 00:00:00 00:00:00 Only Unassigned, 67446.1.1 ity of [place] 3.104.2.7 [place] .3.872357 [facility] .[facility] [place] 2021-07-15 2021-07-15 Orders Doctor 1.2.840.0 [id number] Univers 00:00:00 00:00:00 Only Unassigned, 32381.1.1 ity of [place] 3.104.2.7 [place] .3.151654 [facility] .[facility] [place] 2021-07-15 2021-07-15 Orders Doctor 1.2.840.9 [id number] Univers 00:00:00 00:00:00 Only Unassigned, 70676.1.1 ity of [place] 3.104.2.7 [place] .3.211395 [facility] [place] 2021-07-09 2021-07-09 Emergency [facility] [id number] [facility] 12:46:00 12:46:00 14 2021-07-08 2021-07-08 Outpatient Escobar GALARZA, [facility] [id number] Univers 13:00:00 13:00:00 HONORIO ity [facility] 2021-07-08 2021-07-08 Outpatient Escobar GALARZA, [facility] [id number] Univers 13:00:00 13:00:00 HONORIO ity [facility] 2021-06-30 2021-06-30 Telephone Nazeer, 1.2.840.3 [id number] Univers 00:00:00 00:00:00 Jerry 90352.1.1 ity of 3.104.2.7 [place] .3.226122 [facility] .[facility] [place] 2021-06-30 2021-06-30 Telephone Nazeer, 1.2.840.9 [id number] Univers 00:00:00 00:00:00 Jerry 25716.1.1 ity of 3.104.2.7 [place] .3.257891 [facility] .[facility] [place] 2021-06-30 2021-06-30 Telephone Nazeer, 1.2.840.2 [id number] Univers 00:00:00 00:00:00 Jerry 36502.1.1 ity of 3.104.2.7 [place] .3.527601 [facility] .8 [place] 2021-06-30 2021-06-30 Telephone Nazeer, 1.2.840.6 [id number] Univers 00:00:00 00:00:00 Jerry 88421.1.1 ity of 3.104.2.7 [place] .3.756471 [facility] [place] 2021-06-24 2021-06-24 Imm/Inj Nurse, Pcp Immunization [facility] 1. 2.840.114 [id number] Univers 16:30:00 16:40:00 Visit Gideon Montez PRIMARY 350.1.13. 10 ity of CARE 4.2.7.2.686 Michelle VALDES [id number] [place] dical [address] [place] 2021-06-24 2021-06-24 Imm/Inj Gideon Montez 1.2.840.0 [id number] Univers 16:30:00 16:40:00 Visit Nurse, Pcp Immunization 72119.1.1 ity of 3.104.2.7 [place] .3.774133 [facility] .[facility] [place] 2021-06-24 2021-06-24 Imm/Inj Gideon Montez 1.2.840.6 [id number] Univers 16:30:00 16:40:00 Visit Nurse, Pcp Immunization 44254.1.1 ity of 3.104.2.7 [place] .3.297023 [facility] .[facility] [place] 2021-06-24 2021-06-24 Imm/Inj Gideon Montez 1.2.840.1 [id number] Univers 16:30:00 16:40:00 Visit Nurse, Pcp Immunization 54833.1.1 ity of 3.104.2.7 [place] .3.197631 [facility] .[facility] [place] 2021-06-24 2021-06-24 Imm/Inj Gideon Montez 1.2.840.3 548 [id number] Univers 16:30:00 16:40:00 Visit Nurse, Pcp Immunization 89148.1.1 ity of 3.104.2.7 [place] .3.533598 [facility] .[facility] [place] 2021-06-24 2021-06-24 Outpatient R CARLOS MANUEL [facility] [id number] Univers 16:30:00 16:30:00 GIDEON erickson of [facility] 2021-06-24 2021-06-24 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 [facility] 1.2.840.114 [id number] Univers 16:15:00 16:30:00 Visit Bethel Isaacs PRIMARY 350.1.13.10 ity of CARE 4.2.7.2.686 Michelle VALDES [id number] [place] dical [address] [place] 2021-06-24 2021-06-24 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 Bethel Isaacs 1.2.840.8 [id number] Univers 16:15:00 16:30:00 Visit Pcp-Lab 61747.1.1 ity of 3.104.2.7 [place] .3.503640 [facility] .8 [place] 2021-06-24 2021-06-24 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 Bethel Isaacs 1.2.840.9 [id number] [id number] Univers 16:15:00 16:30:00 Visit Pcp-Lab 66797.1.1 ity of 3.104.2.7 [place] .3.056295 [facility] .8 [place] 2021-06-24 2021-06-24 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 Bethel Isaacs 1.2.840.6 569 [id number] Univers 16:15:00 16:30:00 Visit Pcp-Lab 27074.1.1 ity of 3.104.2.7 [place] .3.239974 [facility] .8 [place] 2021-06-24 2021-06-24 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 Bethel Isaacs 1.2.840.9 853 [id number] Univers 16:15:00 16:30:00 Visit Pcp-Lab 47041.1.1 ity of 3.104.2.7 [place] .3.992677 [facility] .8 [place] 2021-06-24 2021-06-24 Outpatient R KOURTNEY [facility] [id number] Univers 16:15:00 16:15:00 BETHEL erickson of [facility] 2021-06-24 2021-06-24 Outpatient R KOURTNEY [facility] [id number] Univers 14:40:00 16:08:00 BETHEL erickson of [facility] 2021-06-24 2021-06-24 Office Bethel Isaacs 1.2.840.8 [id number] Univers 14:40:00 16:08:00 Visit Health, Tg Hormone 61942.1.1 ity of 3.104.2.7 [place] .3.852089 [facility] .[facility] [place] 2021-06-24 2021-06-24 [facility] [id number] Univers 14:40:00 16:08:00 BETHEL erickson [facility] 2021-06-24 2021-06-24 Office Bethel Isaacs 1.2.840.2 [id number] Univers 14:40:00 16:08:00 Visit Health, Tg Hormone 45354.1.1 ity of 3.104.2.7 [place] .3.623975 [facility] l .8 [place] 2021-06-24 2021-06-24 Office Bethel Isaacs 1.2.840.4 [id number] Univers 14:40:00 16:08:00 Visit Health, Tg Hormone 89073.1.1 ity of 3.104.2.7 [place] .3.834930 [facility] l .8 [place] 2021-06-24 2021-06-24 Office Bethel Isaacs 1.2.840.2 [id number] Univers 14:40:00 16:08:00 Visit Health, Tg Hormone 86048.1.1 ity of 3.104.2.7 [place] .3.630483 Med[facility] l .8 [place] 2021-06-24 2021-06-24 [facility] [id number] Univers 14:40:00 14:40:00 BETHEL ity of [facility] 2021-06-24 2021-06-24 Travel 1.2.840.1 1.2.163.903 0930 0448 Univers 00:00:00 00:00:00 19420.1.1 350.1.13.10 ity of 3.104.2.7 4.[place]7.3.698 [place]3.6644[place] 084.8 [facility] l .8 [place] 2021-06-24 2021-06-24 Travel 1.2.840.1 1.2.534.151 3039 0448 Univers 00:00:00 00:00:00 46151.1.1 350.1.13.10 ity of 3.104.2.7 4.2.7.3.698 [place] .3.431824 084.8 [facility] l .8 [place] 2021-06-24 2021-06-24 Travel 1.2.840.1 1.2.286.817 9185 0448 Univers 00:00:00 00:00:00 78804.1.1 350.1.13.10 ity of 3.104.2.7 4.2.7.3.698 [place] .3.952770 084.8 Med[facility] l .8 [place] 2021-06-24 2021-06-24 Travel 1.2.840.1 1.2.753.611 1928 0448 Univers 00:00:00 00:00:00 13956.1.1 350.1.13.10 ity of 3.104.2.7 4.2.7.3.698 [place] .3.160944 084.8 [facility] l .8 [place] 2021-06-17 2021-06-17 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 James Jacobs 1.2.840.9 [id number] Univers 16:00:00 16:15:00 Visit Pcp-Lab 27880.1.1 ity of 3.104.2.7 [place] .3.377455 [facility] l .8 [place] 2021-06-17 2021-06-17 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 James Jacobs 1.2.840.6 [id number] Univers 16:00:00 16:15:00 Visit Pcp-Lab 90798.1.1 ity of 3.104.2.7 [place] .3.377712 Med[facility] l .8 [place] 2021-06-17 2021-06-17 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 James Jacobs 1.2.840.6 [id number] [id number] Univers 16:00:00 16:15:00 Visit Pcp-Lab 13209.1.1 ity of 3.104.2.7 [place] .3.762746 Med[facility] l .8 [place] 2021-06-17 2021-06-17 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 Reynaldo James 1.2.840.2 938243 [id number] Univers 16:00:00 16:15:00 Visit Pcp-Lab 42711.1.1 ity of 3.104.2.7 [place] .3.735661 Med[facility] l .8 [place] 2021-06-17 2021-06-17 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 Reynaldo James 1.2.840.3 [id number] 8616 [id number] Univers 16:00:00 16:15:00 Visit Pcp-Lab 62859.1.1 ity of 3.104.2.7 [place] .3.150953 Med[facility] l .8 [place] 2021-06-17 2021-06-17 Outpatient Escobar GALARZA [facility] [id number] Univers 14:00:00 14:00:00 [facility] 2021-06-17 2021-06-17 Outpatient Escobar GALARZA [facility] [id number] Univers 14:00:00 14:00:00 [facility] 2021-06-17 2021-06-17 Travel 1.2.840.1 1.2.383.410 6197 3149 Univers 00:00:00 00:00:00 89265.1.1 350.1.13.10 ity of 3.104.2.7 4.[place].7.3.698 [place] .3.071014 084.8 Med[facility] l .8 [place] 2021-06-17 2021-06-17 Travel 1.2.840.1 1.2.955.758 8233 3149 Univers 00:00:00 00:00:00 40783.1.1 350.1.13.10 ity of 3.104.2.7 4.2.7.3.698 [place] .3.173307 084.8 Med[facility] l .8 [place] 2021-06-17 2021-06-17 Travel 1.2.840.1 1.2.118.776 6153 3149 Univers 00:00:00 00:00:00 21428.1.1 350.1.13.10 ity of 3.104.2.7 4.2.7.3.698 [place] .3.160689 084.8 [facility] .[facility] [place] 2021-06-17 2021-06-17 Travel 1.2.840.1 1.2.361.375 1170 3149 Univers 00:00:00 00:00:00 77684.1.1 350.1.13.10 ity of 3.104.2.7 4.2.7.3.698 [place] .3.210081 084.8 [facility] .8 [place] 2021-06-17 2021-06-17 Travel 1.2.840.1 1.2.477.803 0961 3149 [facility] 00:00:00 00:00:00 98273.1.1 350.1.13.10 ity of 3.104.2.7 4.2.7.3.698 [place] .3.286858 084.8 [facility] .8 [place] 2021-06-14 2021-06-14 Outpatient R SELF, [facility] [id number] Univers 11:00:00 12:13:42 JAMES braxton f [facility] 2021-06-14 2021-06-14 Travel 1.2.840.1 1.2.105.560 1065 7514 Univers 00:00:00 00:00:00 45550.1.1 350.1.13.10 ity of 3.104.2.7 4.2.7.3.698 [place] .3.933688 084.8 [facility] .8 [place] 2021-06-14 2021-06-14 Travel 1.2.840.1 1.2.156.396 7302 7514 Univers 00:00:00 00:00:00 48023.1.1 350.1.13.10 ity of 3.104.2.7 4.2.7.3.698 [place] .3.717335 084.8 [facility] .8 [place] 2021-06-14 2021-06-14 Travel 1.2.840.1 1.2.518.573 5335 7514 Univers 00:00:00 00:00:00 54056.1.1 350.1.13.10 ity of 3.104.2.7 4.2.7.3.698 [place] .3.152958 084.8 Med[facility] l .8 [place] 2021-06-14 2021-06-14 Travel 1.2.840.1 1.2.052.654 4293 7514 Univers 00:00:00 00:00:00 55842.1.1 350.1.13.10 ity of 3.104.2.7 4.2.7.3.698 [place] .3.303884 084.8 Med[facility] l .8 [place] 2021-06-10 2021-06-10 Patient Burton, 1.2.840.6 [id number] Univers 00:00:00 00:00:00 Outreach Britt J 81114.1.1 ity of 3.104.2.7 [place] .3.892212 [facility] .8 [place] 2021-06-10 2021-06-10 Patient Burton, 1.2.840.1 [id number] Univers 00:00:00 00:00:00 Outreach Britt J 93232.1.1 ity of 3.104.2.7 [place] .3.797749 [facility] l .8 [place] 2021-06-10 2021-06-10 Patient Burton, 1.2.840.8 [id number] Univers 00:00:00 00:00:00 Outreach Britt J 55152.1.1 ity of 3.104.2.7 [place] .3.812502 [facility] l .8 [place] 2021-06-10 2021-06-10 Patient Burton, 1.2.840.0 [id number] Univers 00:00:00 00:00:00 Outreach Britt J 81941.1.1 ity of 3.104.2.7 [place] .3.416499 [facility] l .8 [place] 2021-06-03 2021-06-03 Outpatient Escobar GALARZA [facility] [id number] Univers 14:00:00 14:22:42 HONORIO ity of [facility] 2021-06-03 2021-06-03 Travel 1.2.840.1 1.2.476.372 6425 4897 Univers 00:00:00 00:00:00 05243.1.1 350.1.13.10 ity of 3.104.2.7 4.2.7.3.698 [place] .3.006237 084.8 [facility] .[facility] [place] 2021-06-03 2021-06-03 Travel 1.2.840.1 1.2.798.786 6161 4897 Univers 00:00:00 00:00:00 99762.1.1 350.1.13.10 ity of 3.104.2.7 4.2.7.3.698 [place] .3.525635 084.8 Medica l .8 [place] 2021-06-03 2021-06-03 Travel 1.2.840.1 1.2.795.822 8914 4897 Univers 00:00:00 00:00:00 37496.1.1 350.1.13.10 ity of 3.104.2.7 4.2.7.3.698 [place] .3.089796 084.8 [facility] .8 [place] 2021-06-03 2021-06-03 Travel 1.2.840.1 1.2.375.795 2009 4897 Univers 00:00:00 00:00:00 73648.1.1 350.1.13.10 ity of 3.104.2.7 4.2.7.3.698 [place] .3.615438 084.8 Medica l .8 [place] 2021-05-26 2021-05-26 [facility], 1.2.840.1 [id number] Univers 09:40:00 23:59:00 Encounter Burke De La Cruz 38317.1.1 ity of 3.104.2.7 [place] .3.861791 [facility] .[facility] [place] 2021-05-26 2021-05-26 [facility], 1.2.840.9 [id number] Univers 09:40:00 23:59:00 Encounter Burke De La Cruz 29796.1.1 ity of 3.104.2.7 [place] .3.113811 Medica l .8 [place] 2021-05-26 2021-05-26 [facility], 1.2.840.4 [id number] 9138 Univers 09:40:00 23:59:00 Encounter Burke De La Cruz 54109.1.1 ity of 3.104.2.7 [place] .3.626792 Medica l .8 [place] 2021-05-26 2021-05-26 Outpatient R JEDDO, [facility] [id number] Univers 00:00:00 00:00:00 BURKE ity of [facility] 2021-05-25 2021-05-25 Emergency [facility] [id number] [facility] 23:19:00 23:19:00 94 2021-05-24 2021-05-24 [facility]patient [facility] [id number] Univers 11:00:00 11:31:18 JAMES ity o f [facility] 2021-05-24 2021-05-24 Travel 1.2.840.1 1.2.447.157 1496 116 Univers 00:00:00 00:00:00 46120.1.1 350.1.13.10 ity of 3.104.2.7 4.2.7.3.698 [place] .3.170207 084.8 Medica l .8 [place] 2021-05-24 2021-05-24 Travel 1.2.840.1 1.2.715.659 3731 1167 Univers 00:00:00 00:00:00 03213.1.1 350.1.13.10 ity of 3.104.2.7 4.2.7.3.698 [place] .3.377150 084.8 Medica l .8 [place] 2021-05-24 2021-05-24 Travel 1.2.840.1 1.2.133.591 5950 1167 Univers 00:00:00 00:00:00 75344.1.1 350.1.13.10 ity of 3.104.2.7 4.2.7.3.698 [place] .3.307221 084.8 Med[facility] l .8 [place] 2021-05-10 2021-05-10 Outpatient R SELF, [facility] [id number] Univers 08:45:00 08:45:00 JAMES erickson o f [facility] 2021-04-29 2021-04-29 Outpatient R GEOVANNI, [facility] [id number] Univers 13:00:00 13:33:16 HONORIO ity [facility] 2021-04-29 2021-04-29 Outpatient R GALARZA, [facility] [id number] Univers 13:00:00 13:00:00 HONORIO ity [facility] 2021-04-29 2021-04-29 Travel 1.2.840.1 1.2.931.466 9799 6843 Univers 00:00:00 00:00:00 66173.1.1 350.1.13.10 ity of 3.104.2.7 4.2.7.3.698 [place] .3.593893 084.8 Med[facility] l .8 [place] 2021-04-29 2021-04-29 Travel 1.2.840.1 1.2.822.569 1672 6843 Univers 00:00:00 00:00:00 24816.1.1 350.1.13.10 ity of 3.104.2.7 4.2.7.3.698 [place] .3.337695 084.8 Med[place] l .8 [place] 2021-03-18 2021-03-18 Outpatient R GALARZA, [facility] [id number] Univers 15:00:00 15:00:00 HONORIO ity [facility] 2021-03-18 2021-03-18 Travel 1.2.840.1 1.2.844.970 4746 6290 Univers 00:00:00 00:00:00 03656.1.1 350.1.13.10 ity of 3.104.2.7 4.2.7.3.698 [place] .3.229945 084.8 Med[facility] l .8 [place] 2021-03-152021-03-15 [facility] [id number] Univers 10:15:00 10:15:00 JAMES erickson o monica [facility] 2021-02-25 2021-02-25 [facility] [id number] Univers 09:00:00 09:00:00 HONORIO erickson [facility] 2021-02-25 2021-02-25 Travel 1.2.840.1 1.2.530.716 1083 5255 Univers 00:00:00 00:00:00 72578.1.1 350.1.13.10 ity of 3.104.2.7 4.2.7.3.698 [place] .3.103482 084.8 Med[place] l .8 [place] 2021-02-15 2021-02-15 [facility] [id number] Univers 11:00:00 11:00:00 JAMES anderson [facility] 2021-02-15 2021-02-15 Travel 1.2.840.1 1.2.028.909 8698 5687 Univers 00:00:00 00:00:00 92731.1.1 350.1.13.10 ity of 3.104.2.7 4.2.7.3.698 [place] .3.392741 084.8 Med[facility] l .8 [place] 2021-02-11 2021-02-11 [facility] [id number] Univers 11:00:00 11:00:00 HONORIO itadrian [facility] 2021-02-11 2021-02-11 Travel 1.2.840.1 1.2.792.756 [id number] [id number] Univers 00:00:00 00:00:00 92399.1.1 350.1.13.10 ity of 3.104.2.7 4.[place]7.3.698 [place] .3.183418 084.8 Medica l .8 [place] 2021-01-28 2021-01-28 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 Paolo Rivera 1.2.840.5 [id number] Univers 13:53:29 14:08:29 Visit Pcp-Lab 23902.1.1 ity of 3.104.2.7 [place] .3.402415 Medica l .8 [place] 2021-01-28 2021-01-28 Outpatient R GEOVANNI, [facility] [id number] Univers 13:00:00 13:00:00 HONORIO erickson [facility] 2021-01-28 2021-01-28 Travel 1.2.840.1 1.2.017.156 1461 [id number] Univers 00:00:00 00:00:00 77699.1.1 350.1.13.10 ity of 3.104.2.7 4.[place]7.3.698 [place] .3.989349 084.8 Medica l .8 [place] 2021-01-25 2021-01-25 Outpatient R REYNALDO, [facility] [id number] Univers 09:30:00 09:30:00 JAMES braxton [facility] 2021-01-25 2021-01-25 Travel 1.2.840.1 1.2.205.701 0524 [id number] Univers 00:00:00 00:00:00 68989.1.1 350.1.13.10 ity of 3.104.2.7 4.[place]7.3.698 [place] .3.631958 084.8 Medica l .8 [place] 2021-01-13 2021-01-13 Outpatient R REYNALDO, [facility] [id number] Univers 16:00:00 16:00:00 JAMES erickson o [facility] 2021-01-13 2021-01-13 Travel 1.2.840.1 1.2.173.151 [id number] [id number] Univers 00:00:00 00:00:00 67109.1.1 350.1.13.10 ity of 3.104.2.7 4.[place]7.3.698 [place] .3.062762 084.8 Medica l .8 [place] 2020-12-31 2020-12-31 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 Tim Holguin 1.2.840.3 [id number] Univers 16:38:39 16:54:09 Visit Pcp-Lab 66647.1.1 ity of 3.104.2.7 [place] .3.069197 Medica l .8 [place] 2020-12-31 2020-12-31 Outpatient Escobar GEOVANNI [facility] [id number] Univers 16:00:00 16:00:00 HONORIO ity [facility] 2020-12-31 2020-12-31 Travel 1.2.840.1 1.2.074.894 [id number] Univers 00:00:00 00:00:00 24794.1.1 350.1.13.10 ity of 3.104.2.7 4.[place]7.3.698 [place] .3.157661 084.8 Medica l .8 [place] 2020-12-28 2020-12-28 Orders Doctor 1.2.840.2 [id number] Univers 00:00:00 00:00:00 Only Unassigned, 12974.1.1 ity of [place] 3.104.2.7 [place] .3.107516 Medica l .8 [place] 2020-12-24 2020-12-24 Outpatient Escobar HOLGUIN [facility] [id number] Univers 11:00:00 11:00:00 TIM bernal y [facility] 2020-12-24 2020-12-24 Travel 1.2.840.1 1.2.237.908 [id number] [id number] Univers 00:00:00 00:00:00 87291.1.1 350.1.13.10 ity of 3.104.2.7 4.[place].7.3.698 [place] .3.127269 084.8 Medica l .8 [place] 2020-12-17 2020-12-17 Outpatient Escobar GALARZA [facility] [id number] Univers 11:00:00 11:00:00 HONORIO ity [facility] 2020-11-26 2020-11-26 Outpatient Escobar GALARZA [facility] [id number] Univers 16:00:00 16:00:00 HONORIO ity [facility] 2020-11-26 2020-11-26 Travel 1.2.840.1 1.2.278.841 [id number] Univers 00:00:00 00:00:00 13211.1.1 350.1.13.10 ity of 3.104.2.7 4.2.7.3.698 [place] .3.263496 084.8 Medica l .8 [place] 2020-11-26 2020-11-26 Travel 1.2.840.1 1.2.388.395 3846 0854 Univers 00:00:00 00:00:00 52592.1.1 350.1.13.10 ity of 3.104.2.7 4.2.7.3.698 [place] .3.153469 084.8 Medica l .8 [place] 2020-11-21 2020-11-21 Imm/Inj Gideon Montez 1.2.840.7 [id number] Univers 10:04:35 10:09:35 Visit Immunization, [facility] 61033.1.1 ity of 3.104.2.7 [place] .3.957985 Medica l .8 [place] 2020-11-21 2020-11-21 Outpatient R CARLOS MANUEL [facility] [id number] Univers 10:05:00 10:05:00 GIDEON itadrian [facility] 2020-11-17 2020-11-17 Outpatient R CHELSY ROMO [facility] [id number] Univers 15:45:00 15:45:00 ity [facility] 2020-11-17 2020-11-17 Travel 1.2.840.1 1.2.272.134 9062 [id number] Univers 00:00:00 00:00:00 93900.1.1 350.1.13.10 ity of 3.104.2.7 4.2.7.3.698 [place] .3.853185 084.8 Medica l .8 [place] 2020-11-16 2020-11-16 Orders Doctor 1.2.840.8 [id number] Univers 00:00:00 00:00:00 Only Unassigned, 60479.1.1 ity of [place] 3.104.2.7 [place] .3.183783 Medica l .8 [place] 2020-11-12 2020-11-12 Outpatient R GEOVANNI, [facility] [id number] Univers 08:00:00 08:00:00 HONORIO ity of [facility] 2020-11-12 2020-11-12 Travel 1.2.840.1 1.2.853.201 1555 [id number] Univers 00:00:00 00:00:00 72701.1.1 350.1.13.10 ity of 3.104.2.7 4.2[place]7.3.698 [place] .3.042569 084.8 Medica l .8 [place] 2020-10-29 2020-10-29 Outpatient R EZIO, [facility] [id number] Univers 09:30:00 09:30:00 TIM it y of [facility] 2020-10-24 2020-10-24 Imm/Inj Gio Martinez 1.2.840.1 [id number] Univers 09:54:36 10:09:56 [facility], [facility] 13466.1.1 ity of 3.104.2.7 [place] .3.844269 Medica l [address] [place] [address] 2020-10-24 2020-10-24 Outpatient Escobar MARTINEZ, [facility] [id number] Univers 10:00:00 10:00:00 GIO ity of [facility] 2020-10-24 2020-10-24 Travel 1.2.840.1 1.2.546.239 [id number] Univers 00:00:00 00:00:00 47126.1.1 350.1.13.10 ity of 3.104.2.7 [place].698 [place] .[place] 084.8 Medica l .[address] [place] 2020-09-25 2020-09-26 Emergency E BRINDA [facility] [id number] [place] 23:49:00 10:04:00 ALAINA Medica [facility] 2020-09-17 2020-09-17 Telephone Kaur Montes2.840.4 [id number] Univers 00:00:00 00:00:00 Nilton Mustapha 38700.1.1 i ty of 3.104.2.7 [place] .3.219716 Medica l .8 [place] 2020-08-18 2020-08-18 Outpatient R CHELSY ROMO [facility] [id number] Univers 15:00:00 15:00:00 ity [facility] 2020-07-08 2020-07-08 Office Simon, 1.2.840.1 [id number] Univers 12:55:33 15:36:41 Visit Nilton A 43727.1.1 i ty of 3.104.2.7 [place] .3.412891 Medica l [address] [place] [address] 2020-07-08 2020-07-08 Outpatient R NILTON MONTES [facility] [id number] Univers 13:30:00 13:30:00 [facility] 2020-07-08 2020-07-08 Orders Doctor 1.2.840.2 [id number] Univers 00:00:00 00:00:00 Only Unassigned, 49777.1.1 ity of [place] 3.104.2.7 [place] .3.661237 Medica l [address] 2020-07-08 2020-07-08 Letter Simon, 1.2.840.2 [id number] Univers 00:00:00 00:00:00 (Out) Nilton A 31979.1.1 i ty of 3.104.2.7 [place] .3.708399 Medica l [address] [place] [address] 2020-05-21 2020-05-21 Outpatient R NICOLE [facility] [id number] Univers 10:15:00 10:15:00 DENA ity [facility] 2020-05-21 2020-05-21 Orders Doctor 1.2.840.2 [id number] Univers 00:00:00 00:00:00 Only Unassigned, 30971.1.1 ity of [place] 3.104.2.7 [place] .3.241092 Medica l .8 [place] 2020-04-24 2020-04-24 Outpatient R FISH, ASH [facility] [id number] Univers 16:00:00 16:00:00 ity of [facility] 2020-04-22 2020-04-22 Telephone Fish, Ash 1.2.840.0 [id number] Univers 00:00:00 00:00:00 67623.1.1 ity of 3.104.2.7 [place] .3.400420 Medica l .8 [place] 2020-04-21 2020-04-21 Case Fish, Ash 1.2.840.1 [id number] Univers 00:00:00 00:00:00 Management 22489.1.1 i ty of 3.104.2.7 [place] .3.832923 Medica l .8 [place] 2020-04-20 2020-04-20 Office Fish, Ash 1.2.840.8 [id number] Univers 15:09:50 16:30:58 Visit 08377.1.1 ity of 3.104.2.7 [place] .3.731044 Medica l .8 [place] 2020-04-20 2020-04-20 Outpatient R FISHASH [facility] [id number] Univers 15:30:00 15:30:00 ity of [facility] 2020-04-20 2020-04-20 Travel 1.2.840.1 1.2.849.853 [id number] Univers 00:00:00 00:00:00 97249.1.1 350.1.13.10 ity of 3.104.2.7 [place]3.698 [place].8[place] 084.8 Medica l .8 [place] 2020-04-16 2020-04-16 Emergency Checo, K 1.2.840.3 [id number] Univers 11:02:00 13:56:00 Bree 09390.1.1 ity of 3.104.2.7 [place] .3.749347 Medica l .8 [place] 2020-04-16 2020-04-16 Travel 1.2.840.1 1.2.956.541 [id number] Univers 00:00:00 00:00:00 36430.1.1 350.1.13.10 ity of 3.104.2.[place] 4[place]3.698 [place].3624[place] 084.8 Medica l .8 [place] 2020-04-07 2020-04-07 Outpatient R CHELSY ROMO [facility] [id number] Univers 13:30:00 13:30:00 ity of [facility] 2020-04-07 2020-04-07 Travel 1.2.840.1 1.2.129.261 [id number] Univers 00:00:00 00:00:00 59605.1.1 350.1.13.10 ity of 3.104.2.[place]3.698 [place] .3.4299[place] 084.8 Medica l .8 [place] 2020-01-30 2020-01-30 Outpatient R MAHENDRA [facility] [id number] Univers 15:45:00 15:45:00 TRUNG ity of [facility] 2020-01-30 2020-01-30 Travel 1.2.840.1 1.2.295.788 [id number] Univers 00:00:00 00:00:00 30609.1.1 350.1.13.10 ity of 3.104.2.[place].698 [place].6488[place] 084.8 Medica l .8 [place] 2020-01-01 2020-01-01 Orders Doctor 1.2.840.0 [id number] Univers 00:00:00 00:00:00 Only Unassigned, 20751.1.1 ity of [place] 3.104.2.7 [place] .3.267188 Medica l .8 [place] 2019-10-22 2019-10-22 Outpatient R CHELSY ROMO [facility] [id number] Univers 15:45:00 15:45:00 ity of [facility] 2019-09-12 2019-09-12 Urgent Unknown, Attending 1.2.840.1 [id number] Univers 17:51:35 19:25:20 Care Ruchi Matt 90221.1.1 ity of 3.104.2.7 [place] .3.725231 Medica l .8 [place] 2019-09-12 2019-09-12 Outpatient R UNKNOWN, [facility] [id number] Univers 18:00:00 18:00:00 ATTENDING ity of [facility] 2019-07-04 2019-07-04 Orders Doctor 1.2.840.8 [id number] Univers 00:00:00 00:00:00 Only Unassigned, 94513.1.1 ity of [place] 3.104.2.7 [place] .3.446705 Medica l .8 [place] 2019-04-02 2019-04-02 Orders Doctor 1.2.840.2 [id number] Univers 00:00:00 00:00:00 Only Unassigned, 22345.1.1 ity of [place] 3.104.2.7 [place] .3.912439 Medica l .8 [place] 2018-10-31 2018-10-31 Nurse Nilton Montes 1.2.840.1 [id number] [facility] 14:59:26 16:42:50 Visit NurseHan 13089.1.1 ity of 3.104.2.7 [place] .3.812339 Medica l .8 [place] Results Test Description Test Time Test Comments [...] 3576) 07/02/2023 Lab Interpretation (test code = 37649-2) [id number] 01:46:00 Test Item Value Reference Range Interpretation Comments POCT PREG (test code = 1605) Negative On board controls acceptable with Present C Line (test code = 3574) POCT PREG LOT # (test code = HCG 20110903) POCT PREG TEST DATE (test 07/02/2023 code = 3576) Lab Interpretation (test code = Normal 88966-3) [facility] [id number] 01:46:00 Test Item Value Reference Range Interpretation Comments POCT PREG (test code = 1605) Negative On board controls acceptable with Present C Line (test code = 3574) POCT PREG LOT # (test code = HCG 20110903) POCT PREG TEST DATE (test 07/02/2023 code = 3576) Lab Interpretation (test code = Normal 42052-2) [facility] [id number] 01:46:00 Test Item Value Reference Range Interpretation Comments POCT PREG (test code = 1605) Negative On board controls acceptable with Present C Line (test code = 3574) POCT PREG LOT # (test code = HCG 20110903) POCT PREG TEST DATE (test 07/02/2023 code = 3576) Lab Interpretation (test code = Normal 42609-8) [facility] [id number] 01:46:00 Test Item Value Reference Range Interpretation Comments POCT PREG (test code = 1605) Negative On board controls acceptable with Present C Line (test code = 3574) POCT PREG LOT # (test code = HCG 20110903) POCT PREG TEST DATE (test 07/02/2023 code = 3576) Lab Interpretation (test code = Normal 82463-8) [facility] [id number] 01:46:00 Test Item Value Reference Range Interpretation Comments POCT PREG (test code = 1605) Negative On board controls acceptable with Present C Line (test code = 3574) POCT PREG LOT # (test code = HCG 20110903) POCT PREG TEST DATE (test 07/02/2023 code = 3576) Lab Interpretation (test code = Normal 22777-5) [facility] [id number] 01:46:00 Test Item Value Reference Range Interpretation Comments POCT PREG (test code = 1605) Negative On board controls acceptable with Present C Line (test code = 3574) POCT PREG LOT # (test code = HCG 20110903) POCT PREG TEST DATE (test 07/02/2023 code = 3576) Lab Interpretation (test code = Normal 48292-0) [facility] [id number] 01:46:00 Test Item Value Reference Range Interpretation Comments POCT PREG (test code = 1605) Negative On board controls acceptable with Present C Line (test code = 3574) POCT PREG LOT # (test code = HCG 20110903) POCT PREG TEST DATE (test 07/02/2023 code = 3576) Lab Interpretation (test code = Normal 24493-8) [facility] [id number] 01:46:00 Test Item Value Reference Range Interpretation Comments POCT PREG (test code = 1605) Negative On board controls acceptable with Present C Line (test code = 3574) POCT PREG LOT # (test code = HCG 20110903) POCT PREG TEST DATE (test 07/02/2023 code = 3576) Lab Interpretation (test code = Normal 25947-4) [facility] [id number] 01:46:00 Test Item Value Reference Range Interpretation Comments POCT PREG (test code = 1605) Negative On board controls acceptable with Present C Line (test code = 3574) POCT PREG LOT # (test code = HCG 20110903) POCT PREG TEST DATE (test 07/02/2023 code = 3576) Lab Interpretation (test code = Normal 49414-1) [facility] [id number] 01:46:00 Test Item Value Reference Range Interpretation Comments POCT PREG (test code = 1605) Negative On board controls acceptable with Present C Line (test code = 3574) POCT PREG LOT # (test code = HCG 20110903) POCT PREG TEST DATE (test 07/02/2023 code = 3576) Lab Interpretation (test code = Normal 08701-7) [facility] [id number] 01:46:00 Test Item Value Reference Range Interpretation Comments POCT PREG (test code = 1605) Negative On board controls acceptable with Present C Line (test code = 3574) POCT PREG LOT # (test code = HCG 20110903) POCT PREG TEST DATE (test 07/02/2023 code = 3576) Lab Interpretation (test code = Normal 28311-3) [facility] [id number] 01:46:00 Test Item Value Reference Range Interpretation Comments POCT PREG (test code = 1605) Negative On board controls acceptable with Present C Line (test code = 3574) POCT PREG LOT # (test code = HCG 20110903) POCT PREG TEST DATE (test 07/02/2023 code = 3576) Lab Interpretation (test code = Normal 15196-1) [facility] [id number] 01:46:00 Test Item Value Reference Range Interpretation Comments POCT PREG (test code = 1605) Negative On board controls acceptable with Present C Line (test code = 3574) POCT PREG LOT # (test code = HCG 20110903) POCT PREG TEST DATE (test 07/02/2023 code = 3576) Lab Interpretation (test code = Normal 13162-5) [facility] [id number] 01:46:00 Test Item Value Reference Range Interpretation Comments POCT PREG (test code = 1605) Negative On board controls acceptable with Present C Line (test code = 3574) POCT PREG LOT # (test code = HCG 20110903) POCT PREG TEST DATE (test 07/02/2023 code = 3576) Lab Interpretation (test code = Normal 15140-1) [facility] [id number] 01:46:00 Test Item Value Reference Range Interpretation Comments POCT PREG (test code = 1605) Negative On board controls acceptable with Present C Line (test code = 3574) POCT PREG LOT # (test code = HCG 20110903) POCT PREG TEST DATE (test 07/02/2023 code = 3576) Lab Interpretation (test code = Normal 49027-6) [facility] [id number] 01:46:00 Test Item Value Reference Range Interpretation Comments POCT PREG (test code = 1605) Negative On board controls acceptable with Present C Line (test code = 3574) POCT PREG LOT # (test code = HCG 20110903) POCT PREG TEST DATE (test 07/02/2023 code = 3576) Lab Interpretation (test code = Normal 18073-6) [facility] [id number] 01:46:00 Test Item Value Reference Range Interpretation Comments POCT PREG (test code = 1605) Negative On board controls acceptable with Present C Line (test code = 3574) POCT PREG LOT # (test code = HCG 20110903) POCT PREG TEST DATE (test 07/02/2023 code = 3576) Lab Interpretation (test code = Normal 04226-6) [facility] [id number] 01:46:00 Test Item Value Reference Range Interpretation Comments POCT PREG (test code = 1605) Negative On board controls acceptable with Present C Line (test code = 3574) POCT PREG LOT # (test code = HCG 20110903 3575) POCT PREG TEST DATE (test 07/02/2023 code = 3576) Lab Interpretation (test code = Normal 17172-8) [facility] METABOLIC PANEL (NA, K, CL, CO2, GLUCOSE, BUN, CREATININE, CA)2022-04-05 11:08:28 Test Item Value Reference Range Interpretation Comments NA (test code = 137 mmol/L 135-145 4287115811) K (test code = 3.8 mmol/L 3.5-5 6679569682) CL (test code = 104 mmol/L 98-108 6841201227) CO2 TOTAL (test code 27 mmol/L 23-31 = 9873697999) AGAP (test code = 2-16 8947628779) BUN (test code = 13 mg/dL 7-23 0934791246) GLUCOSE (test code = 106 mg/dL 70-110 7189642955) CREATININE (test code 0.58 mg/dL 0.5-1.04 = 2492882478) CALCIUM (test code = 8.6 mg/dL 8.6-10.6 3040374820) eGFR (test code = mL/min/1.73m2 9906755264) MEDHAT (test code = MEDHAT) Association of [...] or urine or abnormalities in imaging tests). [facility] METABOLIC PANEL (NA, K, CL, CO2, GLUCOSE, BUN, CREATININE, CA)2022-04-05 11:08:28 Test Item Value Reference Range Interpretation Comments NA (test code = 137 mmol/L 135-145 1234271288) K (test code = 3.8 mmol/L 3.5-5 5928049179) CL (test code = 104 mmol/L 98-108 1296348637) CO2 TOTAL (test code 27 mmol/L 23-31 = 2053001273) AGAP (test code = 2-16 7047304668) BUN (test code = 13 mg/dL 7-23 9392111410) GLUCOSE (test code = 106 mg/dL 70-110 2280036175) CREATININE (test code 0.58 mg/dL 0.5-1.04 = 1123233303) CALCIUM (test code = 8.6 mg/dL 8.6-10.6 7223749013) eGFR (test code = mL/min/1.73m2 2312120678) MEDHAT (test code = MEDHAT) Association of [...] or urine or abnormalities in imaging tests). [facility] METABOLIC PANEL (NA, K, CL, CO2, GLUCOSE, BUN, CREATININE, CA)2022-04-05 11:08:28 Test Item Value Reference Range Interpretation Comments NA (test code = 137 mmol/L 135-145 0559060464) K (test code = 3.8 mmol/L 3.5-5 2846057435) CL (test code = 104 mmol/L 98-108 0224535595) CO2 TOTAL (test code 27 mmol/L 23-31 = 0781472351) AGAP (test code = 2-16 6500174189) BUN (test code = 13 mg/dL 7-23 9226990800) GLUCOSE (test code = 106 mg/dL 70-110 5076913784) CREATININE (test code 0.58 mg/dL 0.5-1.04 = 9456549689) CALCIUM (test code = 8.6 mg/dL 8.6-10.6 1834689829) eGFR (test code = mL/min/1.73m2 5181020994) MEDHAT (test code = MEDHAT) Association of [...] or abnormalities in imaging tests). [facility] (NA, K, CL, CO2, GLUCOSE, BUN, CREATININE, CA)2022-04-05 11:08:28 Test Item Value Reference Range Interpretation Comments NA (test code = 137 mmol/L 135-145 5978005387) K (test code = 3.8 mmol/L 3.5-5 0763876141) CL (test code = 104 mmol/L 98-108 6382443302) CO2 TOTAL (test code 27 mmol/L 23-31 = 6666554024) AGAP (test code = 2-16 9238123065) BUN (test code = 13 mg/dL 7-23 8432777020) GLUCOSE (test code = 106 mg/dL 70-110 6289933073) CREATININE (test code 0.58 mg/dL 0.5-1.04 = 8622504524) CALCIUM (test code = 8.6 mg/dL 8.6-10.6 0132159043) eGFR (test code = mL/min/1.73m2 3374161306) MEDHAT (test code = MEDHAT) Association of [...] or urine or abnormalities in imaging tests). [facility] METABOLIC PANEL (NA, K, CL, CO2, GLUCOSE, BUN, CREATININE, CA)2022-04-05 11:08:28 Test Item Value Reference Range Interpretation Comments NA (test code = 137 mmol/L 135-145 4099629007) K (test code = 3.8 mmol/L 3.5-5 7412731212) CL (test code = 104 mmol/L 98-108 7545749578) CO2 TOTAL (test code 27 mmol/L 23-31 = 2996934752) AGAP (test code = 2-16 3768454144) BUN (test code = 13 mg/dL 7-23 7805177613) GLUCOSE (test code = 106 mg/dL 70-110 7011043013) CREATININE (test code 0.58 mg/dL 0.5-1.04 = 6364354020) CALCIUM (test code = 8.6 mg/dL 8.6-10.6 5297667867) eGFR (test code = mL/min/1.73m2 4414051559) MEDHAT (test code = MEDHAT) Association of [...] or urine or abnormalities in imaging tests). [facility] METABOLIC PANEL (NA, K, CL, CO2, GLUCOSE, BUN, CREATININE, CA)2022-04-05 11:08:28 Test Item Value Reference Range Interpretation Comments NA (test code = 137 mmol/L 135-145 6552677397) K (test code = 3.8 mmol/L 3.5-5 7461753029) CL (test code = 104 mmol/L 98-108 0530261626) CO2 TOTAL (test code 27 mmol/L 23-31 = 0673111586) AGAP (test code = 2-16 9570021116) BUN (test code = 13 mg/dL 7-23 4958982430) GLUCOSE (test code = 106 mg/dL 70-110 0716168720) CREATININE (test code 0.58 mg/dL 0.5-1.04 = 7845801276) CALCIUM (test code = 8.6 mg/dL 8.6-10.6 7377438339) eGFR (test code = mL/min/1.73m2 7968801722) MEDHAT (test code = MEDHAT) Association of [...] or abnormalities in imaging tests). [facility] (NA, K, CL, CO2, GLUCOSE, BUN, CREATININE, CA)2022-04-05 11:08:28 Test Item Value Reference Range Interpretation Comments NA (test code = 137 mmol/L 135-145 5390263086) K (test code = 3.8 mmol/L 3.5-5 0399450899) CL (test code = 104 mmol/L 98-108 2782637024) CO2 TOTAL (test code 27 mmol/L 23-31 = 9814914732) AGAP (test code = 2-16 6176604735) BUN (test code = 13 mg/dL 7-23 4531784156) GLUCOSE (test code = 106 mg/dL 70-110 6761998825) CREATININE (test code 0.58 mg/dL 0.5-1.04 = 0555822678) CALCIUM (test code = 8.6 mg/dL 8.6-10.6 0816297411) eGFR (test code = mL/min/1.73m2 1137319810) MEDHAT (test code = MEDHAT) Association of [...] or urine or abnormalities in imaging tests). [facility] METABOLIC PANEL (NA, K, CL, CO2, GLUCOSE, BUN, CREATININE, CA)2022-04-05 11:08:28 Test Item Value Reference Range Interpretation Comments NA (test code = 137 mmol/L 135-145 6605355274) K (test code = 3.8 mmol/L 3.5-5 2060190603) CL (test code = 104 mmol/L 98-108 3612841820) CO2 TOTAL (test code 27 mmol/L 23-31 = 3144023327) AGAP (test code = 2-16 9154202571) BUN (test code = 13 mg/dL 7-23 8608428494) GLUCOSE (test code = 106 mg/dL 70-110 5029346696) CREATININE (test code 0.58 mg/dL 0.5-1.04 = 1813019275) CALCIUM (test code = 8.6 mg/dL 8.6-10.6 9815025694) eGFR (test code = mL/min/1.73m2 7721017254) MEDHAT (test code = MEDHAT) Association of [...] or urine or abnormalities in imaging tests). [facility] METABOLIC PANEL (NA, K, CL, CO2, GLUCOSE, BUN, CREATININE, CA)2022-04-05 11:08:28 Test Item Value Reference Range Interpretation Comments NA (test code = 137 mmol/L 135-145 7829270723) K (test code = 3.8 mmol/L 3.5-5 7049364706) CL (test code = 104 mmol/L 98-108 2651371785) CO2 TOTAL (test code 27 mmol/L 23-31 = 5378876015) AGAP (test code = 2-16 3539932375) BUN (test code = 13 mg/dL 7-23 8815475949) GLUCOSE (test code = 106 mg/dL 70-110 4429813486) CREATININE (test code 0.58 mg/dL 0.5-1.04 = 2372338776) CALCIUM (test code = 8.6 mg/dL 8.6-10.6 1362709387) eGFR (test code = mL/min/1.73m2 2758392054) MEDHAT (test code = MEDHAT) Association of [...] or urine or abnormalities in imaging tests). [facility] METABOLIC PANEL (NA, K, CL, CO2, GLUCOSE, BUN, CREATININE, CA)2022-04-05 11:08:28 Test Item Value Reference Range Interpretation Comments NA (test code = 137 mmol/L 135-145 5915839559) K (test code = 3.8 mmol/L 3.5-5 7488089817) CL (test code = 104 mmol/L 98-108 4435639243) CO2 TOTAL (test code 27 mmol/L 23-31 = 1225468717) AGAP (test code = 2-16 4709119967) BUN (test code = 13 mg/dL 7-23 2609400465) GLUCOSE (test code = 106 mg/dL 70-110 3799131877) CREATININE (test code 0.58 mg/dL 0.5-1.04 = 7647747529) CALCIUM (test code = 8.6 mg/dL 8.6-10.6 3046528109) eGFR (test code = mL/min/1.73m2 4901674180) MEDHAT (test code = MEDHAT) Association of [...] or urine or abnormalities in imaging tests). [facility] METABOLIC PANEL (NA, K, CL, CO2, GLUCOSE, BUN, CREATININE, CA)2022-04-05 11:08:28 Test Item Value Reference Range Interpretation Comments NA (test code = 137 mmol/L 135-145 9191359002) K (test code = 3.8 mmol/L 3.5-5 4289914493) CL (test code = 104 mmol/L 98-108 4235959629) CO2 TOTAL (test code 27 mmol/L 23-31 = 0689386593) AGAP (test code = 2-16 4037823240) BUN (test code = 13 mg/dL 7-23 7163403286) GLUCOSE (test code = 106 mg/dL 70-110 4791701247) CREATININE (test code 0.58 mg/dL 0.5-1.04 = 2439449012) CALCIUM (test code = 8.6 mg/dL 8.6-10.6 8084209235) eGFR (test code = mL/min/1.73m2 7545446252) MEDHAT (test code = MEDHAT) Association of [...] or urine or abnormalities in imaging tests). [facility] METABOLIC PANEL (NA, K, CL, CO2, GLUCOSE, BUN, CREATININE, CA)2022-04-05 11:08:28 Test Item Value Reference Range Interpretation Comments NA (test code = 137 mmol/L 135-145 6803547584) K (test code = 3.8 mmol/L 3.5-5 3009636168) CL (test code = 104 mmol/L 98-108 6226081932) CO2 TOTAL (test code 27 mmol/L 23-31 = 1457596252) AGAP (test code = 2-16 4593843187) BUN (test code = 13 mg/dL 7-23 4922552314) GLUCOSE (test code = 106 mg/dL 70-110 3858551164) CREATININE (test code 0.58 mg/dL 0.5-1.04 = 7641857091) CALCIUM (test code = 8.6 mg/dL 8.6-10.6 9080840936) eGFR (test code = mL/min/1.73m2 5437870620) MEDHAT (test code = MEDHAT) Association of [...] or urine or abnormalities in imaging tests). [facility] METABOLIC PANEL (NA, K, CL, CO2, GLUCOSE, BUN, CREATININE, CA)2022-04-05 11:08:28 Test Item Value Reference Range Interpretation Comments NA (test code = 137 mmol/L 135-145 8183011977) K (test code = 3.8 mmol/L 3.5-5 7213705206) CL (test code = 104 mmol/L 98-108 2785832232) CO2 TOTAL (test code 27 mmol/L 23-31 = 8426496754) AGAP (test code = 2-16 1504392206) BUN (test code = 13 mg/dL 7-23 8632412632) GLUCOSE (test code = 106 mg/dL 70-110 6748839119) CREATININE (test code 0.58 mg/dL 0.5-1.04 = 5019027738) CALCIUM (test code = 8.6 mg/dL 8.6-10.6 7379927317) eGFR (test code = mL/min/1.73m2 2212112727) MEDHAT (test code = MEDHAT) Association of [...] or abnormalities in imaging tests). [facility] (NA, K, CL, CO2, GLUCOSE, BUN, CREATININE, CA)2022-04-05 11:08:28 Test Item Value Reference Range Interpretation Comments NA (test code = 137 mmol/L 135-145 6161249580) K (test code = 3.8 mmol/L 3.5-5 7052525406) CL (test code = 104 mmol/L 98-108 3664307777) CO2 TOTAL (test code 27 mmol/L 23-31 = 0832162773) AGAP (test code = 2-16 9142686011) BUN (test code = 13 mg/dL 7-23 5899795864) GLUCOSE (test code = 106 mg/dL 70-110 0814141429) CREATININE (test code 0.58 mg/dL 0.5-1.04 = 7965861714) CALCIUM (test code = 8.6 mg/dL 8.6-10.6 5121919842) eGFR (test code = mL/min/1.73m2 8755670974) MEDHAT (test code = MEDHAT) Association of [...] or urine or abnormalities in imaging tests). [facility] METABOLIC PANEL (NA, K, CL, CO2, GLUCOSE, BUN, CREATININE, CA)2022-04-05 11:08:28 Test Item Value Reference Range Interpretation Comments NA (test code = 137 mmol/L 135-145 [id number]) K (test code = 3.8 mmol/L 3.5-5 1900505776) CL (test code = 104 mmol/L 98-108 4690655828) CO2 TOTAL (test code 27 mmol/L 23-31 = 4498069523) AGAP (test code = 2-16 6178147440) BUN (test code = 13 mg/dL 7-23 3315289401) GLUCOSE (test code = 106 mg/dL 70-110 4834212917) CREATININE (test code 0.58 mg/dL 0.5-1.04 = 0196535018) CALCIUM (test code = 8.6 mg/dL 8.6-10.6 7647499644) eGFR (test code = mL/min/1.73m2 7859006575) MEDHAT (test code = MEDHAT) Association of [...] or urine or abnormalities in imaging tests). [facility] METABOLIC PANEL (NA, K, CL, CO2, GLUCOSE, BUN, CREATININE, CA)2022-04-05 11:08:28 Test Item Value Reference Range Interpretation Comments NA (test code = 137 mmol/L 135-145 [id number]) K (test code = 3.8 mmol/L 3.5-5.0 5567327964) CL (test code = 104 mmol/L 98-108 3248432233) CO2 TOTAL (test code 27 mmol/L 23-31 = 5218102783) AGAP (test code = 2-16 1910922944) BUN (test code = 13 mg/dL 7-23 3170103063) GLUCOSE (test code = 106 mg/dL 70-110 4928813052) CREATININE (test code 0.58 mg/dL 0.50-1.04 = 5030786522) CALCIUM (test code = 8.6 mg/dL 8.6-10.6 7935399720) eGFR (test code = mL/min/1.73m2 7579632987) MEDHAT (test code = MEDHAT) Association of [...] or urine or abnormalities in imaging tests). [facility] METABOLIC PANEL (NA, K, CL, CO2, GLUCOSE, BUN, CREATININE, CA)2022-04-05 11:08:28 Test Item Value Reference Range Interpretation Comments NA (test code = 137 mmol/L 135-145 2786268044) K (test code = 3.8 mmol/L 3.5-5.0 6405220395) CL (test code = 104 mmol/L 98-108 6055941489) CO2 TOTAL (test code 27 mmol/L 23-31 = 1527691600) AGAP (test code = 2-16 1376422150) BUN (test code = 13 mg/dL 7-23 9935225798) GLUCOSE (test code = 106 mg/dL 70-110 9838151580) CREATININE (test code 0.58 mg/dL 0.50-1.04 = 1831074297) CALCIUM (test code = 8.6 mg/dL 8.6-10.6 8166583871) eGFR (test code = mL/min/1.73m2 1191687855) MEDHAT (test code = MEDHAT) Association of [...] or urine or abnormalities in imaging tests). [facility] METABOLIC PANEL (NA, K, CL, CO2, GLUCOSE, BUN, CREATININE, CA)2022-04-05 11:08:28 Test Item Value Reference Range Interpretation Comments NA (test code = 137 mmol/L 135-145 3568500409) K (test code = 3.8 mmol/L 3.5-5.0 6407504727) CL (test code = 104 mmol/L 98-108 3019200798) CO2 TOTAL (test code 27 mmol/L 23-31 = 7522575778) AGAP (test code = 2-16 2460751643) BUN (test code = 13 mg/dL 7-23 7502330552) GLUCOSE (test code = 106 mg/dL 70-110 2936407222) CREATININE (test code 0.58 mg/dL 0.50-1.04 = 7159251765) CALCIUM (test code = 8.6 mg/dL 8.6-10.6 1637289210) eGFR (test code = mL/min/1.73m2 4960017114) MEDHAT (test code = MEDHAT) Association of [...] or urine or abnormalities in imaging tests). [facility] METABOLIC PANEL (NA, K, CL, CO2, GLUCOSE, BUN, CREATININE, CA)2022-04-05 11:08:28 Test Item Value Reference Range Interpretation Comments NA (test code = 137 mmol/L 135-145 3558974567) K (test code = 3.8 mmol/L 3.5-5.0 6727327260) CL (test code = 104 mmol/L 98-108 9263338974) CO2 TOTAL (test code 27 mmol/L 23-31 = 7999483691) AGAP (test code = 2-16 7994134732) BUN (test code = 13 mg/dL 7-23 3060609224) GLUCOSE (test code = 106 mg/dL 70-110 6504041264) CREATININE (test code 0.58 mg/dL 0.50-1.04 = 1648730142) CALCIUM (test code = 8.6 mg/dL 8.6-10.6 1732626186) eGFR (test code = mL/min/1.73m2 6504950342) MEDHAT (test code = MEDHAT) Association of [...] or urine or abnormalities in imaging tests). [facility] METABOLIC PANEL (NA, K, CL, CO2, GLUCOSE, BUN, CREATININE, CA)2022-04-05 11:08:28 Test Item Value Reference Range Interpretation Comments NA (test code = 137 mmol/L 135-145 1867460170) K (test code = 3.8 mmol/L 3.5-5.0 2778715523) CL (test code = 104 mmol/L 98-108 9617719030) CO2 TOTAL (test code 27 mmol/L 23-31 = 8847291430) AGAP (test code = 2-16 2965885094) BUN (test code = 13 mg/dL 7-23 6995598085) GLUCOSE (test code = 106 mg/dL 70-110 1937822931) CREATININE (test code 0.58 mg/dL 0.50-1.04 = 1256630210) CALCIUM (test code = 8.6 mg/dL 8.6-10.6 1481668629) eGFR (test code = mL/min/1.73m2 2560261029) MEDHAT (test code = MEDHAT) Association of [...] or urine or abnormalities in imaging tests). [facility] with Qyfzjbidefjx7734-74-91 10:50:28 Test Item Value Reference Range Interpretation Comments WBC (test code = See_Comment [Automated 7190-2) message] The sy stem which generated this [...] RDW-SD (test code = 43.6 fL 39-49.9 35494-1) RDW-CV (test code = 13.6 % 12-15.5 788-0) PLT (test code = See_Comment [Automated 777-3) message] The sy stem which generated this result transmitted reference range : 166 - 358 10*3/ ?L. The reference r mann was not used to interpret this result as normal/abnormal . MPV (test code = 9.9 fL 9.5-12.9 39737-8) NRBC/100 WBC (test See_Comment [Automat ed code = 0241214035) message] The system which generated this result transmitted reference range : 0.0 - 10.0 /100 WBCs. The refer ence range was not u sed to interpret th is result as normal/abnormal . NRBC x10^3 (test code See_Comment [Auto mated = 0919516636) message] The s ystem which generated this result transmitted reference range : 10*3/?L. The reference range was not used to interpret this result as normal/abnormal . GRAN MAT (NEUT) % 65.5 % (test code = 770-8) IMM GRAN % (test code 0.30 % = 5800338183) LYMPH % (test code = 25.3 % 736-9) MONO % (test code = 8.4 % 5905-5) EOS % (test code = 0.0 % 713-8) BASO % (test code = 0.5 % 706-2) GRAN MAT x10^3(ANC) 6.56 10*3/uL 1.88-7.09 (test code = 3342721004) IMM GRAN x10^3 (test 0.03 10*3/uL 0-0.06 code = 2458080867) LYMPH x10^3 (test code 2.53 10*3/uL 1.32-3.29 = 731-0) MONO x10^3 (test code 0.84 10*3/uL 0.33-0.92 = 742-7) EOS x10^3 (test code = 0.03-0.39 L 711-2) BASO x10^3 (test code 0.05 10*3/uL 0.01-0.07 = 704-7) Lab Interpretation Abnormal (test code = 17484-1) [facility] with Wpayrhyqfwiy2017-75-34 10:50:28 Test Item Value Reference Range Interpretation Comments WBC (test code = See_Comment [Automated 0090-2) message] The sy stem which generated this result transmitted reference range : 4.30 - 11.10 10*3/?L. The reference range was not used to interpret this result as normal/abnormal . RBC (test code = See_Comment [Automated 729-8) message] The sy stem which generated this [...] RDW-SD (test code = 43.6 fL 39-49.9 75048-3) RDW-CV (test code = 13.6 % 12-15.5 788-0) PLT (test code = See_Comment [Automated 777-3) message] The sy stem which generated this result transmitted reference range : 166 - 358 10*3/ ?L. The reference r mann was not used to interpret this result as normal/abnormal . MPV (test code = 9.9 fL 9.5-12.9 46383-1) NRBC/100 WBC (test See_Comment [Automat ed code = 8647752136) message] The system which generated this result transmitted reference range : 0.0 - 10.0 /100 WBCs. The refer ence range was not u sed to interpret th is result as normal/abnormal . NRBC x10^3 (test code See_Comment [Auto mated = 5985136083) message] The s ystem which generated this result transmitted reference range : 10*3/?L. The reference range was not used to interpret this result as normal/abnormal . GRAN MAT (NEUT) % 65.5 % (test code = 770-8) IMM GRAN % (test code 0.30 % = 8142424459) LYMPH % (test code = 25.3 % 736-9) MONO % (test code = 8.4 % 5905-5) EOS % (test code = 0.0 % 713-8) BASO % (test code = 0.5 % 706-2) GRAN MAT x10^3(ANC) 6.56 10*3/uL 1.88-7.09 (test code = 2405535190) IMM GRAN x10^3 (test 0.03 10*3/uL 0-0.06 code = 7414359154) LYMPH x10^3 (test code 2.53 10*3/uL 1.32-3.29 = 731-0) MONO x10^3 (test code 0.84 10*3/uL 0.33-0.92 = 742-7) EOS x10^3 (test code = 0.03-0.39 L 711-2) BASO x10^3 (test code 0.05 10*3/uL 0.01-0.07 = 704-7) Lab Interpretation Abnormal (test code = 39698-2) [facility] [id number] 01:03:38 Test Item Value Reference Interpretation Comments Range TROPONIN I (test 0.001 ng/mL See_Comment [Automated code = 9271422682) message] The system which generated this result [...] biotin. Lab Interpretation Normal (test code = 21243-6) [facility] [id number] 01:03:38 Test Item Value Reference Interpretation Comments Range TROPONIN I (test 0.001 ng/mL See_Comment [Automated code = 4684265448) message] The system which generated this result [...] biotin. Lab Interpretation Normal (test code = 40408-1) [facility] [id number] 01:03:38 Test Item Value Reference Interpretation Comments Range TROPONIN I (test 0.001 ng/mL See_Comment [Automated code = 1651665198) message] The system which generated this result [...] biotin. Lab Interpretation Normal (test code = 10984-4) [facility] [id number] 01:03:38 Test Item Value Reference Interpretation Comments Range TROPONIN I (test 0.001 ng/mL See_Comment [Automated code = 1697907102) message] The system which generated this result [...] biotin. Lab Interpretation Normal (test code = 30923-8) [facility] [id number] 01:03:38 Test Item Value Reference Interpretation Comments Range TROPONIN I (test 0.001 ng/mL See_Comment [Automated code = 9588625879) message] The system which generated this result [...] biotin. Lab Interpretation Normal (test code = 21457-5) [facility] [id number] 01:03:38 Test Item Value Reference Interpretation Comments Range TROPONIN I (test 0.001 ng/mL See_Comment [Automated code = 6235046400) message] The system which generated this result [...] biotin. Lab Interpretation Normal (test code = 63677-2) [facility] [id number] 01:03:38 Test Item Value Reference Interpretation Comments Range TROPONIN I (test 0.001 ng/mL See_Comment [Automated code = 1208019310) message] The system which generated this result [...] biotin. Lab Interpretation Normal (test code = 73967-6) [facility] [id number] 01:03:38 Test Item Value Reference Interpretation Comments Range TROPONIN I (test 0.001 ng/mL See_Comment [Automated code = 2584565126) message] The system which generated this result [...] biotin. Lab Interpretation Normal (test code = 11448-4) [facility] [id number] 01:03:38 Test Item Value Reference Interpretation Comments Range TROPONIN I (test 0.001 ng/mL See_Comment [Automated code = 1133447576) message] The system which generated this result [...] biotin. Lab Interpretation Normal (test code = 05815-8) [facility] [id number] 01:03:38 Test Item Value Reference Interpretation Comments Range TROPONIN I (test 0.001 ng/mL See_Comment [Automated code = 9991613496) message] The system which generated this result [...] biotin. Lab Interpretation Normal (test code = 48928-4) [facility] [id number] 01:03:38 Test Item Value Reference Interpretation Comments Range TROPONIN I (test 0.001 ng/mL See_Comment [Automated code = 0094650745) message] The system which generated this result [...] biotin. Lab Interpretation Normal (test code = 69563-7) [facility] [id number] 01:03:38 Test Item Value Reference Interpretation Comments Range TROPONIN I (test 0.001 ng/mL See_Comment [Automated code = 5932699374) message] The system which generated this result [...] biotin. Lab Interpretation Normal (test code = 13492-9) [facility] [id number] 01:03:38 Test Item Value Reference Interpretation Comments Range TROPONIN I (test 0.001 ng/mL See_Comment [Automated code = 5674300281) message] The system which generated this result [...] biotin. Lab Interpretation Normal (test code = 23742-3) [facility] [id number] 01:03:38 Test Item Value Reference Interpretation Comments Range TROPONIN I (test 0.001 ng/mL See_Comment [Automated code = 1690574698) message] The system which generated this result [...] biotin. Lab Interpretation Normal (test code = 38108-4) [facility] [id number] 01:03:38 Test Item Value Reference Interpretation Comments Range TROPONIN I (test 0.001 ng/mL See_Comment [Automated code = 7796323816) message] The system which generated this result [...] biotin. Lab Interpretation Normal (test code = 81873-6) [facility] [id number] 01:03:38 Test Item Value Reference Interpretation Comments Range TROPONIN I (test 0.001 ng/mL See_Comment [Automated code = 6458877258) message] The system which generated this result [...] biotin. Lab Interpretation Normal (test code = 71443-1) [facility] [id number] 01:03:38 Test Item Value Reference Interpretation Comments Range TROPONIN I (test 0.001 ng/mL See_Comment [Automated code = 3590147811) message] The system which generated this result [...] biotin. Lab Interpretation Normal (test code = 41774-4) [facility] [id number] 01:03:38 Test Item Value Reference Interpretation Comments Range TROPONIN I (test 0.001 ng/mL See_Comment [Automated code = 5842166297) message] The system which generated this result [...] biotin. Lab Interpretation Normal (test code = 12858-7) [facility] [id number] 01:03:38 Test Item Value Reference Interpretation Comments Range TROPONIN I (test 0.001 ng/mL See_Comment [Automated code = 1658933356) message] The system which generated this result [...] biotin. Lab Interpretation Normal (test code = 17133-1) [facility] [id number] 01:03:38 Test Item Value Reference Interpretation Comments Range TROPONIN I (test 0.001 ng/mL See_Comment [Automated code = 4731203846) message] The system which generated this result [...] biotin. Lab Interpretation Normal (test code = 42705-9) [facility] Venaepr9780-18-41 21:06:03 Test Item Value Reference Range Interpretation Comments ABO & RH (test code A Positive Performe d at [facility] = 20) Laboratory [facility] [place] [address] Free: [phone] A No. [id number] IAT (test code = Negative Performed a t [facility] 1185) Laboratory [facility] [place], [place] [address]Toll Free: [phone] A No. [id number] [facility] [id number] 21:06:03 Test Item Value Reference Range Interpretation Comments ABO & RH (test code A Positive Performe d at [facility] = 20) Laboratory [facility] [place], [place] [address]Toll Free: [phone] A No. [id number] IAT (test code = Negative Performed a t [facility] 1185) Laboratory [facility] [place], [place] [address]Toll Free: [phone] A No. [id number] [facility] and Screen - ONCE [id number] 21:06:03 Test Item Value Reference Range Interpretation Comments ABO & RH (test code A Positive Performe d at [facility] = 20) Laboratory [facility] [place], [place] [address]Toll Free: [phone] A No. [id number] IAT (test code = Negative Performed a t [facility] 1185) Laboratory [facility] Blood [place] [address]Toll Free: [phone] A No. [id number] [facility] and Screen - ONCE Ftejbok6046-70-31 21:06:03 Test Item Value Reference Range Interpretation Comments ABO & RH (test code A Positive Performe d at [facility] = 20) Laboratory [facility] [place], [place] [address]Toll Free: [phone] A No. [id number] IAT (test code = Negative Performed a t [facility] 1185) Laboratory [facility] [place], [place] [address]Toll Free: [phone] A No. [id number] [facility] and Screen - ONCE [id number] 21:06:03 Test Item Value Reference Range Interpretation Comments ABO & RH (test code A Positive Performe d at [facility] = 20) Laboratory [facility] [place], [place] [address]Toll Free: [phone] A No. [id number] IAT (test code = Negative Performed a t [facility] 1185) Laboratory [facility] [place], [place] [address]Toll Free: [phone] A No. [id number] [facility] and Screen - ONCE [id number] 21:06:03 Test Item Value Reference Range Interpretation Comments ABO & RH (test code A Positive Performe d at [facility] = 20) Laboratory [facility] [place], [place] [address]Toll Free: [phone] A No. [id number] IAT (test code = Negative Performed a t [facility] 1185) Laboratory [facility] [place] [address]Toll Free: [phone] A No. [id number] [facility] and Screen - ONCE [id number] 21:06:03 Test Item Value Reference Range Interpretation Comments ABO & RH (test code A Positive Performe d at [facility] = 20) Laboratory [facility] [place] [address]Toll Free: [phone] A No. [id number] IAT (test code = Negative Performed a t [facility] 1185) Laboratory [facility] [place] [address]Toll Free: [phone] A No. [id number] [facility] and Screen - ONCE [id number] 21:06:03 Test Item Value Reference Range Interpretation Comments ABO & RH (test code A Positive Performe d at [facility] = 20) Laboratory [facility] [place], [place] [address]Toll Free: [phone] A No. [id number] IAT (test code = Negative Performed a t [facility] 1185) Laboratory [facility] [place], [place] [id number] Free: [phone] A No. [id number] [facility] and Screen - ONCE [id number] 21:06:03 Test Item Value Reference Range Interpretation Comments ABO & RH (test code A Positive Performe d at [facility] = 20) Laboratory [facility] [place], [place] [address]Toll Free: [phone] A No. [id number] IAT (test code = Negative Performed a t [facility] 1185) Laboratory [facility] [place] [address]Toll Free: [phone] A No. [id number] [facility] [id number] 21:06:03 Test Item Value Reference Range Interpretation Comments ABO & RH (test code A Positive Performe d at [facility] = 20) Laboratory [facility] [place] [address]Toll Free: [phone] A No. [id number] IAT (test code = Negative Performed a t [facility] 1185) Laboratory [facility] [place] [address]Toll Free: [phone] A No. [id number] [facility] and Screen - ONCE [id number] 21:06:03 Test Item Value Reference Range Interpretation Comments ABO & RH (test code A Positive Performe d at [facility] = 20) Laboratory [facility] [place] [address]Toll Free: [phone] A No. [id number] IAT (test code = Negative Performed a t [facility] 1185) Laboratory [facility] [place] [address]Toll Free: [phone] A No. [id number] [facility] and Screen - ONCE Peuzamy8971-18-46 21:06:03 Test Item Value Reference Range Interpretation Comments ABO & RH (test code A Positive Performe d at [facility] = 20) Laboratory [facility] [address] [address]Ceof Free: [phone] A No. [id number] IAT (test code = Negative Performed a t [facility] 1185) Laboratory [facility] [place], [place] [address]Toll Free: [phone] A No. [id number] [facility] and Screen - ONCE [id number] 21:06:03 Test Item Value Reference Range Interpretation Comments ABO & RH (test code A Positive Performe d at [facility] = 20) Laboratory [facility] [place] [address]Toll Free: [phone] A No. [id number] IAT (test code = Negative Performed a t [facility] 1185) Laboratory [facility] [place] [address]Toll Free: [phone] A No. [id number] [facility] and Screen - ONCE Ymdfbtk7700-36-12 21:06:03 Test Item Value Reference Range Interpretation Comments ABO & RH (test code A Positive Performe d at [facility] = 20) Laboratory [facility] [place] [address]Toll Free: [phone] A No. [id number] IAT (test code = Negative Performed a t [facility] 1185) Laboratory [facility] Blood [place] [address]Toll Free: [phone] A No. [id number] [facility] and Screen - ONCE Kldgxui0572-58-42 21:06:03 Test Item Value Reference Range Interpretation Comments ABO & RH (test code A Positive Performe d at [facility] = 20) Laboratory [facility] [place] [address]Vcyr Free: [phone] A No. [id number] IAT (test code = Negative Performed a t [facility] 1185) Laboratory [facility] [place] [address]Fozc Free: [phone] A No. [id number] [facility] and Screen - ONCE [id number] 21:06:03 Test Item Value Reference Range Interpretation Comments ABO & RH (test code A Positive Performe d at [facility] = 20) Laboratory [facility] [place], [place] [address]Toll Free: [phone] A No. [id number] IAT (test code = Negative Performed a t [facility] 1185) Laboratory [facility] [place] [address]Toll Free: [phone] A No. [id number] [facility] Vznjacu3359-87-27 21:06:03 Test Item Value Reference Range Interpretation Comments ABO & RH (test code A Positive Performe d at [facility] = 20) Laboratory [facility] [place] [address]Toll Free: [phone] A No. [id number] IAT (test code = Negative Performed a t [facility] 1185) Laboratory [facility] [place], [place] [address]Toll Free: [phone] A No. [id number] [facility] Noxmuve3862-12-87 21:06:03 Test Item Value Reference Range Interpretation Comments ABO & RH (test code A Positive Performe d at [facility] = 20) Laboratory [facility] [place] [address]Okem Free: [phone] A No. [id number] IAT (test code = Negative Performed a t [facility] 1185) Laboratory [facility] [place] [address]Izkr Free: [phone] A No. [id number] [facility] [id number] 21:06:03 Test Item Value Reference Range Interpretation Comments ABO & RH (test code A Positive Performe d at [facility] = 20) Laboratory [facility] [place], [place] [address]Toll Free: [phone] A No. [id number] IAT (test code = Negative Performed a t [facility] 1185) Laboratory [facility] [place] [address]Toll Free: [phone] A No. [id number] [facility] Blsbjjt8562-07-02 21:06:03 Test Item Value Reference Range Interpretation Comments ABO & RH (test code A Positive Performe d at [facility] = 20) Laboratory [facility] [place] [address]Toll Free: [phone] A No. [id number] IAT (test code = Negative Performed a t [facility] 1185) Laboratory [facility] [place] [address]Toll Free: [phone] A No. [id number] [facility] Confirmation (Lab Only)2022-04-04 20:58:06 Test Item Value Reference Range Interpretation Comments ABO & RH (test code A Positive Performe d at [facility] = 20) Laboratory [facility] [place] [address]Toll Free: [phone] A No. [id number] [facility] Confirmation (Lab Only)2022-04-04 20:58:06 Test Item Value Reference Range Interpretation Comments ABO & RH (test code A Positive Performe d at [facility] = 20) Laboratory [facility] [place] [address]Toll Free: [phone] A No. [id number] [facility] Confirmation (Lab Only)2022-04-04 20:58:06 Test Item Value Reference Range Interpretation Comments ABO & RH (test code A Positive Performe d at [facility] = 20) Laboratory [facility] [place] [address]Toll Free: [phone] A No. [id number] [facility] Confirmation (Lab Only)2022-04-04 20:58:06 Test Item Value Reference Range Interpretation Comments ABO & RH (test code A Positive Performe d at [facility] = 20) Laboratory [facility] [address] [place] [address] Free: [phone] A No. [id number] [facility] Confirmation (Lab Only)2022-04-04 20:58:06 Test Item Value Reference Range Interpretation Comments ABO & RH (test code A Positive Performe d at [facility] = 20) Laboratory [facility] [place], [place] [address]Toll Free: [phone] A No. [id number] [facility] Confirmation (Lab Only)2022-04-04 20:58:06 Test Item Value Reference Range Interpretation Comments ABO & RH (test code A Positive Performe d at [facility] = 20) Laboratory [facility] [place], [place] [address]Toll Free: [phone] A No. [id number] [facility] Confirmation (Lab Only)2022-04-04 20:58:06 Test Item Value Reference Range Interpretation Comments ABO & RH (test code A Positive Performe d at [facility] = 20) Laboratory [facility] [place], [place] [address]Toll Free: [phone] A No. [id number] [facility] Confirmation (Lab Only)2022-04-04 20:58:06 Test Item Value Reference Range Interpretation Comments ABO & RH (test code A Positive Performe d at [facility] = 20) [facility] [facility] [place], [place] [address]Toll Free: [phone] A No. [id number] Formerly [facility] Confirmation (Lab Only)2022-04-04 20:58:06 Test Item Value Reference Range Interpretation Comments ABO & RH (test code A Positive Performe d at [facility] = 20) Laboratory [facility] [place], [place] [address]Toll Free: [phone] A No. [id number] Formerly [facility] Confirmation (Lab Only)2022-04-04 20:58:06 Test Item Value Reference Range Interpretation Comments ABO & RH (test code A Positive Performe d at [facility] = 20) Laboratory [facility] [place] [address]Toll Free: [phone] A No. [id number] Formerly [facility] Confirmation (Lab Only)2022-04-04 20:58:06 Test Item Value Reference Range Interpretation Comments ABO & RH (test code A Positive Performe d at [facility] = 20) Laboratory [facility] [place] [address]Toll Free: [phone] A No. [id number] Formerly [facility] Confirmation (Lab Only)2022-04-04 20:58:06 Test Item Value Reference Range Interpretation Comments ABO & RH (test code A Positive Performe d at [facility] = 20) Laboratory [facility] [place] [address]Toll Free: [phone] A No. [id number] Formerly [facility] Confirmation (Lab Only)2022-04-04 20:58:06 Test Item Value Reference Range Interpretation Comments ABO & RH (test code A Positive Performe d at [facility] = 20) Laboratory [facility] [place] [address]Toll Free: [phone] A No. [id number] Formerly [facility] Confirmation (Lab Only)2022-04-04 20:58:06 Test Item Value Reference Range Interpretation Comments ABO & RH (test code A Positive Performe d at [facility] = 20) Laboratory [facility] [place], [place] [address]Toll Free: [phone] A No. [id number] Formerly [facility] Confirmation (Lab Only)2022-04-04 20:58:06 Test Item Value Reference Range Interpretation Comments ABO & RH (test code A Positive Performe d at [facility] = 20) Laboratory [facility] [place], [place] [address]Toll Free: [phone] A No. [id number] Formerly [facility] Confirmation (Lab Only)2022-04-04 20:58:06 Test Item Value Reference Range Interpretation Comments ABO & RH (test code A Positive Performe d at [facility] = 20) Laboratory [facility] [place], [place] [address]Toll Free: [phone] A No. [id number] Formerly [facility] Confirmation (Lab Only)2022-04-04 20:58:06 Test Item Value Reference Range Interpretation Comments ABO & RH (test code A Positive Performe d at [facility] = 20) Laboratory [facility] [place], [place] [address]Toll Free: [phone] A No. [id number] Formerly [facility] Confirmation (Lab Only)2022-04-04 20:58:06 Test Item Value Reference Range Interpretation Comments ABO & RH (test code A Positive Performe d at [facility] = 20) Laboratory [facility] [place], [place] [address]Toll Free: [phone] A No. [id number] Formerly [facility] Confirmation (Lab Only)2022-04-04 20:58:06 Test Item Value Reference Range Interpretation Comments ABO & RH (test code A Positive Performe d at [facility] = 20) Laboratory [facility] [place], [place] [address]Toll Free: [phone] A No. [id number] Formerly [facility] Confirmation (Lab Only)2022-04-04 20:58:06 Test Item Value Reference Range Interpretation Comments ABO & RH (test code A Positive Performe d at [facility] = 20) Laboratory [facility] [place] [id number] Free: [phone] A No. [id number] [facility], [id number] 19:40:46 Test Item Value Reference Range Interpretation Comments PREG SERUM (test code Negative = 6546823942) MEDHAT (test code = MEDHAT) Less than 10 IU/L. ?If low titer or ectopic is suspected, resubmit specimen in 48-72 hours. [facility], [id number] 19:40:46 Test Item Value Reference Range Interpretation Comments PREG SERUM (test code Negative = 5260426467) MEDHAT (test code = MEDHAT) Less than 10 IU/L. ?If low titer or ectopic is suspected, resubmit specimen in 48-72 hours. [facility] [id number] 19:40:46 Test Item Value Reference Range Interpretation Comments PREG SERUM (test code Negative = 9998142910) MEDHAT (test code = MEDHAT) Less than 10 IU/L. ?If low titer or ectopic is suspected, resubmit specimen in 48-72 hours. [facility], [id number] 19:40:46 Test Item Value Reference Range Interpretation Comments PREG SERUM (test code Negative = 5472388907) MEDHAT (test code = MEDHAT) Less than 10 IU/L. ?If low titer or ectopic is suspected, resubmit specimen in 48-72 hours. [facility], [id number] 19:40:46 Test Item Value Reference Range Interpretation Comments PREG SERUM (test code Negative = 4625743694) MEDHAT (test code = MEDHAT) Less than 10 IU/L. ?If low titer or ectopic is suspected, resubmit specimen in 48-72 hours. [facility], [id number] 19:40:46 Test Item Value Reference Range Interpretation Comments PREG SERUM (test code Negative = 2377485688) MEDHAT (test code = MEDHAT) Less than 10 IU/L. ?If low titer or ectopic is suspected, resubmit specimen in 48-72 hours. [facility], [id number] 19:40:46 Test Item Value Reference Range Interpretation Comments PREG SERUM (test code Negative = 9490570137) MEDHAT (test code = MEDHAT) Less than 10 IU/L. ?If low titer or ectopic is suspected, resubmit specimen in 48-72 hours. [facility], [id number] 19:40:46 Test Item Value Reference Range Interpretation Comments PREG SERUM (test code Negative = 6881020271) MEDHAT (test code = MEDHAT) Less than 10 IU/L. ?If low titer or ectopic is suspected, resubmit specimen in 48-72 hours. [facility], [id number] 19:40:46 Test Item Value Reference Range Interpretation Comments PREG SERUM (test code Negative = 8168959953) MEDHAT (test code = MEDHAT) Less than 10 IU/L. ?If low titer or ectopic is suspected, resubmit specimen in 48-72 hours. [facility], [id number] 19:40:46 Test Item Value Reference Range Interpretation Comments PREG SERUM (test code Negative = 7944784743) MEDHAT (test code = MEDHAT) Less than 10 IU/L. ?If low titer or ectopic is suspected, resubmit specimen in 48-72 hours. [facility], [id number] 19:40:46 Test Item Value Reference Range Interpretation Comments PREG SERUM (test code Negative = 8076708243) MEDHAT (test code = MEDHAT) Less than 10 IU/L. ?If low titer or ectopic is suspected, resubmit specimen in 48-72 hours. [facility], [id number] 19:40:46 Test Item Value Reference Range Interpretation Comments PREG SERUM (test code Negative = 8831416912) MEDHAT (test code = MEDHAT) Less than 10 IU/L. ?If low titer or ectopic is suspected, resubmit specimen in 48-72 hours. [facility], [id number] 19:40:46 Test Item Value Reference Range Interpretation Comments PREG SERUM (test code Negative = 2985615478) MEDHAT (test code = MEDHAT) Less than 10 IU/L. ?If low titer or ectopic is suspected, resubmit specimen in 48-72 hours. [facility], [id number] 19:40:46 Test Item Value Reference Range Interpretation Comments PREG SERUM (test code Negative = 3172526106) MEDHAT (test code = MEDHAT) Less than 10 IU/L. ?If low titer or ectopic is suspected, resubmit specimen in 48-72 hours. [facility], [id number] 19:40:46 Test Item Value Reference Range Interpretation Comments PREG SERUM (test code Negative = 8532683977) MEDHAT (test code = MEDHAT) Less than 10 IU/L. ?If low titer or ectopic is suspected, resubmit specimen in 48-72 hours. [facility], [id number] 19:40:46 Test Item Value Reference Range Interpretation Comments PREG SERUM (test code Negative = 1518358948) MEDHAT (test code = MEDHAT) Less than 10 IU/L. ?If low titer or ectopic is suspected, resubmit specimen in 48-72 hours. [facility], [id number] 19:40:46 Test Item Value Reference Range Interpretation Comments PREG SERUM (test code Negative = 3336374876) MEDHAT (test code = MEDHAT) Less than 10 IU/L. ?If low titer or ectopic is suspected, resubmit specimen in 48-72 hours. [facility], [id number] 19:40:46 Test Item Value Reference Range Interpretation Comments PREG SERUM (test code Negative = 7367237609) MEDHAT (test code = MEDHAT) Less than 10 IU/L. ?If low titer or ectopic is suspected, resubmit specimen in 48-72 hours. [facility], [id number] 19:40:46 Test Item Value Reference Range Interpretation Comments PREG SERUM (test code Negative = 9555535503) MEDHAT (test code = MEDHAT) Less than 10 IU/L. ?If low titer or ectopic is suspected, resubmit specimen in 48-72 hours. [facility], [id number] 19:40:46 Test Item Value Reference Range Interpretation Comments PREG SERUM (test code Negative = 5748796690) MEDHAT (test code = MEDHAT) Less than 10 IU/L. ?If low titer or ectopic is suspected, resubmit specimen in 48-72 hours. [facility] WITH [id number] 18:55:21 Test Item Value Reference Range Interpretation [...] RDW-SD (test code = 43.0 fL 39-49.9 80007-7) RDW-CV (test code = 13.2 % 12-15.5 788-0) PLT (test code = See_Comment [Automated 777-3) message] The system which generated this result transmit gómez reference range : 166 - 358 10*3/ ?L. The reference range was not u sed to interpret th is result as normal/abnormal . MPV (test code = 10.8 fL 9.5-12.9 63789-0) NRBC/100 WBC (test See_Comment [Automat ed code = 0040985052) message] The system which generated this result transmit gómez reference range : 0.0 - 10.0 /100 WBCs. The reference range was not used to interpret this result as normal/abnormal . NRBC x10^3 (test code See_Comment [Auto mated = 9044633954) message] The system which generated this result transmit gómez reference range : 10*3/?L. The reference range was not used to interpret this result as normal/abnormal . GRAN MAT (NEUT) % 82.1 % (test code = 770-8) IMM GRAN % (test code 0.60 % = 5488310331) LYMPH % (test code = 12.4 % 736-9) MONO % (test code = 4.3 % 5905-5) EOS % (test code = 0.1 % 713-8) BASO % (test code = 0.5 % 706-2) GRAN MAT x10^3(ANC) 10.62 10*3/uL 1.88-7.09 H (test code = 4176023120) IMM GRAN x10^3 (test 0.08 10*3/uL 0-0.06 H code = 8834252003) LYMPH x10^3 (test code 1.60 10*3/uL 1.32-3.29 = 731-0) MONO x10^3 (test code 0.56 10*3/uL 0.33-0.92 = 742-7) EOS x10^3 (test code = 0.03-0.39 L 711-2) BASO x10^3 (test code 0.06 10*3/uL 0.01-0.07 = 704-7) Lab Interpretation Abnormal (test code = 59323-5) [facility]. METABOLIC PANEL ([id number])2022-04-04 18:55:21 Test Item Value Reference Range Interpretation Comments NA (test code = 141 mmol/L 135-145 0786850573) K (test code = 4.5 mmol/L 3.5-5 9681865581) CL (test code = 103 mmol/L 98-108 9514630892) CO2 TOTAL (test code = 27 mmol/L 23-31 1416264126) AGAP (test code = 2-16 6203934857) BUN (test code = 14 mg/dL 7-23 6118604241) GLUCOSE (test code = 115 mg/dL 70-110 H 8795496311) CREATININE (test code = 0.62 mg/dL 0.5-1.04 5817133144) TOTAL BILI (test code = 0.7 mg/dL 0.1-1.0 1324639981) CALCIUM (test code = 9.5 mg/dL 8.6-10.6 3702029039) T PROTEIN (test code = 7.3 g/dL 6.3-8.2 1690414706) ALBUMIN (test code = 4.7 g/dL 3.5-5 8826304081) ALK PHOS (test code = 65 U/L 34-122 3527267323) ALTv (test code = 22 U/L 5-35 1742-6) AST(SGOT) (test code = 39 U/L 13-40 6777364662) eGFR (test code = mL/min/1.73m2 5771484044) MEDHAT (test code = MEDHAT) Association of [...] tests). Lab Interpretation Abnormal (test code = 73025-5) [facility] 18:55:21 Test Item Value Reference Range Interpretation Comments LIPASE (test code = 9045084554) 70 U/L 0-220 Lab Interpretation (test code = Normal 75752-6) [facility] 18:55:21 Test Item Value Reference Range Interpretation Comments LIPASE (test code = 6991926134) 70 U/L 0-220 Lab Interpretation (test code = Normal 99484-6) [facility] METABOLIC PANEL (32662)2022-04-04 18:55:21 Test Item Value Reference Range Interpretation Comments NA (test code = 141 mmol/L 135-145 9378623193) K (test code = 4.5 mmol/L 3.5-5 5173330484) CL (test code = 103 mmol/L 98-108 5934216858) CO2 TOTAL (test code = 27 mmol/L 23-31 9838532085) AGAP (test code = 2-16 4634196185) BUN (test code = 14 mg/dL 7-23 2106102509) GLUCOSE (test code = 115 mg/dL 70-110 H 6806589135) CREATININE (test code = 0.62 mg/dL 0.5-1.04 9127546679) TOTAL BILI (test code = 0.7 mg/dL 0.1-1.9 7372683806) CALCIUM (test code = 9.5 mg/dL 8.6-10.6 7944548252) T PROTEIN (test code = 7.3 g/dL 6.3-8.2 8100613643) ALBUMIN (test code = 4.7 g/dL 3.5-5 4550524503) ALK PHOS (test code = 65 U/L 34-122 1867773773) ALTv (test code = 22 U/L 5-35 1742-6) AST(SGOT) (test code = 39 U/L 13-40 3067868279) eGFR (test code = mL/min/1.73m2 2434520735) MEDHAT (test code = MEDHAT) Association of [...] tests). Lab Interpretation Abnormal (test code = 53033-0) [facility]2022-10-03 18:55:21 Test Item Value Reference Range Interpretation Comments LIPASE (test code = 6692463107) 70 U/L 0-220 Lab Interpretation (test code = Normal 71778-5) [place] [address]-10-03 18:55:21 Test Item Value Reference Range Interpretation Comments LIPASE (test code = 0406769538) 70 U/L 0-220 Lab Interpretation (test code = Normal 63589-9) [place] [address]-10-03 18:55:21 Test Item Value Reference Range Interpretation Comments LIPASE (test code = 9656167117) 70 U/L 0-220 Lab Interpretation (test code = Normal 47314-7) [place] [address]-10-03 18:55:21 Test Item Value Reference Range Interpretation Comments LIPASE (test code = 7504359531) 70 U/L 0-220 Lab Interpretation (test code = Normal 30033-6) [place] [address]-10-03 18:55:21 Test Item Value Reference Range Interpretation Comments LIPASE (test code = 2395017692) 70 U/L 0-220 Lab Interpretation (test code = Normal 70224-3) [address]10-03 18:55:21 Test Item Value Reference Range Interpretation Comments LIPASE (test code = 8141856175) 70 U/L 0-220 Lab Interpretation (test code = Normal 76782-3) [address]10-03 18:55:21 Test Item Value Reference Range Interpretation Comments LIPASE (test code = 4317585299) 70 U/L 0-220 Lab Interpretation (test code = Normal 44629-6) [address]10-03 18:55:21 Test Item Value Reference Range Interpretation Comments LIPASE (test code = 6719957116) 70 U/L 0-220 Lab Interpretation (test code = Normal 19526-0) [address]10-03 18:55:21 Test Item Value Reference Range Interpretation Comments LIPASE (test code = 0931497619) 70 U/L 0-220 Lab Interpretation (test code = Normal 89366-2) [address]10-03 18:55:21 Test Item Value Reference Range Interpretation Comments LIPASE (test code = 5728396020) 70 U/L 0-220 Lab Interpretation (test code = Normal 04015-4) [address]10-03 18:55:21 Test Item Value Reference Range Interpretation Comments LIPASE (test code = 8313352916) 70 U/L 0-220 Lab Interpretation (test code = Normal 51666-5) [address]10-03 18:55:21 Test Item Value Reference Range Interpretation Comments LIPASE (test code = 5919083172) 70 U/L 0-220 Lab Interpretation (test code = Normal 64904-1) [address]10-03 18:55:21 Test Item Value Reference Range Interpretation Comments LIPASE (test code = 6264019115) 70 U/L 0-220 Lab Interpretation (test code = Normal 32627-4) [address]10-03 18:55:21 Test Item Value Reference Range Interpretation Comments LIPASE (test code = 4692009942) 70 U/L 0-220 Lab Interpretation (test code = Normal 91535-0) [address]10-03 18:55:21 Test Item Value Reference Range Interpretation Comments LIPASE (test code = 6977440756) 70 U/L 0-220 Lab Interpretation (test code = Normal 16507-7) [facility] 18:55:21 Test Item Value Reference Range Interpretation Comments LIPASE (test code = 4444598942) 70 U/L 0-220 Lab Interpretation (test code = Normal 98399-7) [facility] 18:55:21 Test Item Value Reference Range Interpretation Comments LIPASE (test code = 0832902586) 70 U/L 0-220 Lab Interpretation (test code = Normal 79500-4) [facility] 18:55:21 Test Item Value Reference Range Interpretation Comments LIPASE (test code = 6443118581) 70 U/L 0-220 Lab Interpretation (test code = Normal 57492-1) [facility]. METABOLIC PANEL (88872)2022-04-01 04:58:46 Test Item Value Reference Range Interpretation Comments NA (test code = 139 mmol/L 135-145 5082988724) K (test code = 5.0 mmol/L 3.5-5 2286969180) CL (test code = 102 mmol/L 98-108 1011969482) CO2 TOTAL (test code 27 mmol/L 23-31 = 1783732746) AGAP (test code = 2-16 8258796147) BUN (test code = 13 mg/dL 7-23 4371200405) GLUCOSE (test code = 104 mg/dL 70-110 4250901969) CREATININE (test code 0.69 mg/dL 0.5-1.04 = 4872124437) TOTAL BILI (test code 0.5 mg/dL 0.1-1.1 = 3334482091) CALCIUM (test code = 9.6 mg/dL 8.6-10.6 6013509119) T PROTEIN (test code 7.2 g/dL 6.3-8.2 = 7495890689) ALBUMIN (test code = 4.6 g/dL 3.5-5 6273167954) ALK PHOS (test code = 60 U/L 34-122 6934825728) ALTv (test code = 15 U/L 535 1742-6) AST(SGOT) (test code 26 U/L 13-40 = 6889789386) eGFR (test code = mL/min/1.73m2 4008092864) MEDHAT (test code = MEDHAT) Association of [...] or abnormalities in imaging tests). [facility] 04:58:25 Test Item Value Reference Range Interpretation Comments LIPASE (test code = 3924721345) 71 U/L 0-220 Lab Interpretation (test code = Normal 98720-9) [facility] WITH [id number] 04:46:42 Test Item Value Reference Range Interpretation Comments WBC (test code = See_Comment [Automated message] 6690-2) The system [employer] generated this result transmitted ref erence range: 4.30 - 1 1.10 10*3/?L. The re ference range was not u sed to interpret this result as normal/abnor mal. RBC (test code = See_Comment [Automated message] 789-8) The system [employer] generated this result transmitted ref erence range: [...] RDW-SD (test code 42.5 fL 39-49.9 = 39270-2) RDW-CV (test code 13.2 % 12-15.5 = 788-0) PLT (test code = See_Comment [Automated message] 777-3) The system [employer] generated this result transmitted ref erence range: 166 - 35 8 10*3/?L. The re ference range was not u sed to interpret this result as normal/abnor mal. MPV (test code = 10.4 fL 9.5-12.9 89892-8) NRBC/100 WBC (test See_Comment [Automat ed message] code = 3079579474) The syste m which generated this result transmitted ref erence range: 0.0 - 10 .0 /100 WBCs. The refer ence range was not u sed to interpret this result as normal/abnor mal. NRBC x10^3 (test See_Comment [Automated message] code = 1045839495) The syste m which generated this result transmitted ref erence range: 10*3/?L. The reference range was not used to interpr et this result as normal/abnormal . GRAN MAT (NEUT) % 69.5 % (test code = 770-8) IMM GRAN % (test 0.40 % code = 0682041323) LYMPH % (test code 23.3 % = 736-9) MONO % (test code 5.3 % = 5905-5) EOS % (test code = 0.7 % 713-8) BASO % (test code 0.8 % = 706-2) GRAN MAT 5.73 10*3/uL 1.88-7.09 x10^3(ANC) (test code = 1446641763) IMM GRAN x10^3 0.03 10*3/uL 0-0.06 (test code = 4492718952) LYMPH x10^3 (test 1.92 10*3/uL 1.32-3.29 code = 731-0) MONO x10^3 (test 0.44 10*3/uL 0.33-0.92 code = 742-7) EOS x10^3 (test 0.06 10*3/uL 0.03-0.39 code = 711-2) BASO x10^3 (test 0.07 10*3/uL 0.01-0.07 code = 704-7) [facility] [id number] 04:37:00 Test Item Value Reference Range Interpretation Comments POCT PREG (test code = 1605) negative Lab Interpretation (test code = Normal 79922-0) [facility] [id number] 04:37:00 Test Item Value Reference Range Interpretation Comments POCT PREG (test code = 1605) negative Lab Interpretation (test code = Normal 11654-5) [facility] Center[facility] NAAT, [id number] 14:05:00 Test Item Value Reference Range Interpretation Comments Coronavirus NAAT, COVD19 SARS results, (test code = including Patient [id number]) Name, or MRN, were Coronavirus NAAT, COVD19 ical-devices/emergenc (test code = x-wte-mgspyiyulxjlsq. SKOOOCX2GIEV5.1) SARS-CoV-2 NAAT Result: Positive by RT-PCR A (test code = SARS-CoV-2 NAAT Result:) COVID-19 Status: AsymptomaticHCG, Urine Qual (LAB)2021-07-09 14:05:00 Test Item Value Reference Range Interpretation Comments HCG, Urine, Qual (test code = HCGU) Negative Negative Drug Screen,[id number] 14:05:00 Test Item Value Reference Range Interpretation [...] Negative code = UPROP) UA, Urinalysis w Ebkiqwax5560-31-07 14:05:00 Test Item Value Reference Range Interpretation Comments Color,Urine (test code = Yellow Yellow UCOL) Clarity,Urine (test code = Clear Clear UCLAR) Ph, Urine (test code = UPH) 8.5 5.0-8.0 H Specific [place],Urine 1.020 1.005-1.030 N (test code = USG) [...] Seen A UBACT) Complete Blood Count Auto [id number] 13:20:00 Test Item Value Reference Range Interpretation [...] code = NRBCP) 0 % Comprehensive Metabolic Vdyie3072-05-06 13:20:00 Test Item Value Reference Range Interpretation [...] 72 U/L 46-116 N = ALP) Ethanol [id number] 13:20:00 Test Item Value Reference Range Interpretation [...] = HCGU) Negative Negative UA, Urinalysis Rflx Cult/Lwnbz2302-47-37 00:20:00 Test Item Value Reference Range Interpretation Comments Color,Urine (test code = Yellow Yellow UCOL) Clarity,Urine (test code = Clear Clear UCLAR) PH,Urine (test code = 7.5 5.5-8.5 UPH.XX) Specific [place],Urine 1.020 1.005-1.030 N (test code = USG) [...] cells/uL Negative (test code = ULEU) Urine Ntmtmskxvbq2890-73-56 00:20:00 Test Item Value Reference Range Interpretation Comments RBC,Urine (test code = URBC.XX) 0-5 /HPF None Seen WBC,Urine (test code = UWBC.XX) 6-10 /HPF None Seen A Squamous Epithelial Cell,Urine 74-200 /HPF None Seen A (test code = USQEPI.XX) Bacteria,Urine (test code = Moderate /HPF None Seen A UBACT) Drug Screen,[id number] 00:20:00 Test Item Value Reference Range Interpretation [...] code = UPROP) Complete Blood Count Auto [id number] 00:09:00 Test Item Value Reference Range Interpretation [...] code = NRBCP) 0 % Comprehensive Metabolic [id number] 00:09:00 Test Item Value Reference Range Interpretation [...] 83 U/L 46-116 N = ALP) Ethanol [id number] 00:09:00 Test Item Value Reference Range Interpretation Comments Ethanol (test code < 3 mg/dL The pharm acological = ETOH) response to blo od alcohol levels mayvary from individual to i ndividual. The fatal ezio ntrationhas been reported t o be >400mg/dL. Coronavirus PCR, COVID19 Igwzv4285-65-74 00:08:00 Test Item Value Reference Range Interpretation Comments Coronavirus PCR, For use under Emergency COVID19 Rapid (test Use Authorization (EUA) code = SARSCOV2) only. Coronavirus PCR, Reference Range: COVID19 Rapid (test Negative code = OEPIKCV05.1) SARS-CoV-2 PCR Result: Negative by RT-PCR (test code = SARS-CoV-2 PCR Result:) COVID-19 Status: AsymptomaticCARBAMAZEPHINE (TEGRETOL)2020-09-26 08:42:00 Test Item Value Reference Range Interpretation Comments CARBAMAZPN (test code = 98A) 19.3 ug/mL 4.0-12.0 HH CARBAMAZEPHINE (TEGRETOL)2020-09-26 05:04:00 Test Item Value Reference Range Interpretation Comments CARBAMAZPN (test code = 98A) 20.1 ug/mL 4.0-12.0 HH URINALYSIS WITH [id number] 02:45:00 Test Item Value Reference Range Interpretation [...] code = USPERM) /HPF NONE DRUGS OF [id number] 02:43:00 Test Item Value Reference Range Interpretation [...] the FDA and the [employer] ([employer]) are more stringent than those required for this test. Therefore, the result should be interpreted with caution and close attention to other clinical and epidemiological data PRO TIME AND [id number] 00:51:00 Test Item Value Reference Range Interpretation [...] Heparin. Order Code is ANTI-XA COMPREHENSIVE METABOLIC [id number] 00:47:00 Test Item Value Reference Range Interpretation [...] as normal/abnormal . GFR 154 See_Comment [Automated CROATIAN (test mL/min/1.73m\\S\\2 message] The code = GFRAA) [...] to interpret this result as normal/abnormal . [id number] 00:47:00 Test Item Value Reference Range Interpretation Comments ACETAMINPH (test code = 94M) 3.6 ug/mL 10.0-30.0 L CARDIAC [id number] 00:47:00 Test Item Value Reference Range Interpretation Comments TROPONIN I (test code = A84) <0.015 ng/mL 0.000-0.045 ALCOHOL BLOOD (ETOH)2020-09-26 00:44:00 Test Item Value Reference Range Interpretation Comments ETOH (test code = ETHANOL HALC) The result is to be used only for medical purposes ALCOHOL (test <10 mg/dL See_Comment [Automated me ssage] code = 56A) The system [employer] generated this result transmit gómez reference range : <=10. The refer ence range was not u sed to interpret th is result as normal/abnormal . [id number] 00:42:00 Test Item Value Reference Range Interpretation Comments SALICYLATE (test code = 94B) <1.7 mg/dL 2.8-20.0 L SERUM [id number] 00:38:00 Test Item Value Reference Range Interpretation [...]
--- NOTE | 2022-05-30 14:51 | EDPHYS ---
Physician Documentation [facility] Name: Vanda Pompa Age: 22 yrs Sex: Female : 2000 Arrival Date: 05/30/2022 Time: 13:34 Bed Waiting Private MD: ED Physician Aston López HPI: 05/30 19:58 This 22 yrs old Female presents to ER via EMS with complaints of Covid. kb 19:58 The patient has not experienced similar symptoms in the past. The patient has not kb recently seen a physician. 19:58 The patient or guardian reports cough, that is intermittent, described as moderate. kb Onset: The symptoms/episode began/occurred 3 day(s) ago. Severity of symptoms: At their worst the symptoms were moderate, in the emergency department the symptoms are unchanged. Modifying factors: The symptoms are alleviated by nothing, the symptoms are aggravated by nothing. Associated signs and symptoms: The patient has no apparent associated signs or symptoms. PT reports she was diagnosed with COVID 2 days ago. Came in today for bodyaches. . Historical: - Allergies: 14:47 No Known Allergies; ss - PMHx: 14:47 Asthma; Bipolar disorder; depressive disorder; ss - PSHx: 14:47 ear surgery; ss - Immunization history:: Client reports receiving the 2nd dose of the Covid vaccine. - Social history:: Smoking status: Patient reports the use of cigarette tobacco products, smokes one-half pack cigarettes per day, Reported history of juuling and/or vaping. ROS: 19:57 Abdomen/GI: Negative for abdominal pain, nausea, vomiting, diarrhea, and constipation. kb 19:57 Constitutional: Positive for body aches, chills, fatigue, fever, malaise. 19:57 Respiratory: Positive for cough. 19:57 All other systems are negative. Exam: 19:57 Constitutional: This is a well developed, well nourished patient who is awake, alert, kb and in no acute distress. Head/Face: Normocephalic, atraumatic. ENT: Moist Mucous membranes Cardiovascular: Regular rate and rhythm with a normal S1 and S2. No gallops, murmurs, or rubs. No pulse deficits. Respiratory: Respirations even and unlabored. No increased work of breathing. Talking in full sentences Abdomen/GI: Soft, non-tender. No distention Skin: Warm, dry with normal turgor. Normal color. MS/ Extremity: Pulses equal, no cyanosis. Neurovascular intact. Full, normal range of motion. Neuro: Awake and alert, GCS 15, oriented to person, place, time, and situation. Moves all extremities. Normal gait. Vital Signs: 14:46 Resp 14; Weight 49.9 kg; Height 5 ft. 3 in. (160.02 cm); Pain 5/10; ss 15:03 BP 108 / 79; Pulse 102; Resp 18; Temp 97.7(TE); Pulse Ox 98% on R/A; ss 14:46 Body Mass Index 19.49 (49.90 kg, 160.02 cm) ss MDM: 14:50 Patient medically screened. kb 19:57 Data reviewed: vital signs, nurses notes. Data interpreted: Pulse oximetry: on room air kb is 98 %. Interpretation: normal. Counseling: I had a detailed discussion with the patient and/or guardian regarding: the historical points, exam findings, and any diagnostic results supporting the discharge/admit diagnosis, the need for outpatient follow up, a family practitioner, to return to the emergency department if symptoms worsen or persist or if there are any questions or concerns that arise at home. Administered Medications: 15:04 Drug: Ibuprofen 400 mg Route: PO; ss 19:57 Follow up: Response: Medication administered at discharge. Disposition Summary: 05/30/22 14:50 Discharge Ordered Location: Home kb Condition: Stable kb Diagnosis - SARS-associated coronavirus as the cause of diseases classified elsewhere kb Followup: kb - With: Emergency Department - When: As needed - Reason: Worsening of condition Followup: kb - With: Private Physician - When: 2 - 3 days - Reason: Recheck today's complaints, Continuance of care, Re-evaluation by your physician Discharge Instructions: - Discharge Summary Sheet kb - COVID-19 kb Forms: - Medication Reconciliation Form kb - Thank You Letter kb - Antibiotic Education kb - Prescription Opioid Use kb Signatures: Trudi Thomason FNP-C FNP-Gali Reaves, OLGA RN
--- NOTE | 2022-05-30 14:51 | ER ---
Nurse's Notes [facility] Name: Vanda Pompa Age: 22 yrs Sex: Female : 2000 Arrival Date: 05/30/2022 Time: 13:34 Bed Waiting Private MD: Diagnosis: SARS-associated coronavirus as the cause of diseases classified elsewhere Presentation: 05/30 14:46 Chief complaint: EMS states: Diagnosed with COVID 2 days ago and is here because she ss has body aches. Coronavirus screen: Client denies travel out of the [place] in the last 14 days. Ebola Screen: Patient denies exposure to infectious person. Patient denies travel to an Ebola-affected area in the 21 days before illness onset. Initial Sepsis Screen: Does the patient meet any 2 criteria? No. Patient's initial sepsis screen is negative. Does the patient have a suspected source of infection? No. Patient's initial sepsis screen is negative. Risk Assessment: Do you want to hurt yourself or someone else? Patient reports no desire to harm self or others. Onset of symptoms was May 28, 2022. 14:46 Acuity: FREDY 5 ss 14:46 Method Of Arrival: EMS: [facility] ss Historical: - Allergies: 14:47 No Known Allergies; ss - PMHx: 14:47 Asthma; Bipolar disorder; depressive disorder; ss - PSHx: 14:47 ear surgery; ss - Immunization history:: Client reports receiving the 2nd dose of the Covid vaccine. - Social history:: Smoking status: Patient reports the use of cigarette tobacco products, smokes one-half pack cigarettes per day, Reported history of juuling and/or vaping. Screenin:46 Abuse screen: Denies threats or abuse. Denies injuries from another. Nutritional ss screening: No deficits noted. Tuberculosis screening: Never had TB. Fall Risk None identified. Assessment: 14:46 General: Appears in no apparent distress. comfortable, Behavior is calm, cooperative. ss Pain: Complains of pain in generalized body aches. Neuro: Level of Consciousness is awake, alert, obeys commands, Oriented to person, place, time, situation. Cardiovascular: Capillary refill < 3 seconds is brisk in bilateral fingers. Respiratory: Airway is patent Respiratory effort is even, unlabored, Respiratory pattern is regular, symmetrical. GI: Patient currently denies nausea, vomiting. Derm: Skin is intact, is healthy with good turgor, Skin is pink, warm \T\ dry. normal. Musculoskeletal: Circulation, motion, and sensation intact. Range of motion: intact in all extremities, Swelling absent. Vital Signs: 14:46 Resp 14; Weight 49.9 kg; Height 5 ft. 3 in. (160.02 cm); Pain 5/10; ss 15:03 BP 108 / 79; Pulse 102; Resp 18; Temp 97.7(TE); Pulse Ox 98% on R/A; ss 14:46 Body Mass Index 19.49 (49.90 kg, 160.02 cm) ss ED Course: 13:34 Patient arrived in ED. rg4 13:36 Trudi Thomason FNP-C is [facility]. kb 13:36 Aston López DO is Attending Physician. kb 14:46 Patient has correct armband on for positive identification. Bed in low position. Call ss light in reach. 14:47 Triage completed. ss 14:47 Arm band placed on right wrist. ss 15:04 No provider procedures requiring assistance completed. Patient did not have IV access ss during this emergency room visit. Administered Medications: 15:04 Drug: Ibuprofen 400 mg Route: PO; ss 19:57 Follow up: Response: Medication administered at discharge. ss Medication: 14:46 VIS not applicable for this client. ss Outcome: 14:50 Discharge ordered by MD. kb 15:04 Discharged to home ambulatory. ss 15:04 Condition: good 15:04 Discharge instructions given to patient, family, Instructed on discharge instructions, follow up and referral plans. Demonstrated understanding of instructions, follow-up care, medications, Prescriptions given X 1. 15:04 Patient left the ED. ss Signatures: Trudi Thomason FNP-C FNP-Ckb Smirch, Shelby, RN RN ss Jennifer Badillo rg4 Corrections: (The following items were deleted from the chart) 15:04 14:46 Method Of Arrival: Ambulatory ss ss
[2022-05-30] MEDS ORDERED: IBUPROFEN 400 MG TAB ONE (14:58)
[2022-05-30 15:13] VITALS: BP 108/79; TEMP 97.7; O2SAT 98
== END 2022-05-30 15:04 | disposition home or self-care (01) ==
LOC: ER 13:32
DX: U07.1 COVID-19 (principal); F17.210 Nicotine dependence, cigarettes, uncomplicated
CPT/HCPCS: 99283

== ENCOUNTER 2022-06-14 21:36 | Emergency (ER) | payer OTHER ==
[2022-06-14] MEDS ORDERED: ACETAMINOPHEN 500 MG TAB ONE (21:52)
[2022-06-14 21:57] LABS: Urine Blood Trace-intact (Negative); Urine Glucose Negative (Negative); Urine Protein Negative (Negative); Urine Specific Gravity 1.025 (1.005-1.030)
--- OUTSIDE RECORDS SUMMARY | 2022-06-14 22:01 | XMS REPORT | Continuity of Care Document ---
:2000 Author Organization [facility] t Address [address] [place] [address] Care Team Providers Name Role Phone PCP, PATIENT DOES NOT HAVE A Primary Care Physician Unavaila ble VIGNESH MACK Attending Clinician Unavailable BOUCHRA MCINTOSH Attending Clinician Unavailable JAMES JACOBS Attending Clinician Unavailable DEONNA MELENDREZ Attending Clinician Unavailable Deonna Ferrell Attending Clinician Bouchra Mcintosh MD Attending Clinician HANDY DOMINGUEZ Attending Clinician Unavailable IRASEMA ROBLEDO Attending Clinician Unavailable Irasema Michel Attending Clinician Shivani Castaneda Attending Clinician [facility] Attending Clinician Unavailable SHIVANI GUERRA Attending Clinician Unavailable Negrita Moise LVN Attending Clinician Keagan Luo MD Attending Clinician Clinic-Stv, Care Transition Attending Clinician Unavailable NOLVIA HUSAIN Attending Clinician Unavailable Nolvia Husain MD Attending Clinician Doctor Unassigned, [place] Attending Clinician Unavailable Vignesh Mack MD Attending Clinician Vaccine, [facility] Attending Clinician Unavailable Kitty KESSLER Attending Clinician Unavailable Kitty Crews Attending Clinician [...] Clinician Unavailable James Jacobs MD Attending Clinician [facility]ician Unavailable Burke Beckett MD Attending Clinician BURKE BECKETT Attending Clinician Unavailable Paolo Rivera MD Attending Clinician Tim Holguin MD Attending Clinician TIM HOLGUIN Attending Clinician Unavailable Immunization, [facility] [employer] Attending Clin ician Unavailable CHELSY ROMO [...] Number Effective Date Expiration Date S [place] [facility] MEDICAID [place] [id number] 2021 00:00:00 FORMERLY [facility] [id number] 2016 [facility] MEDICAID 00:00:00 Problems Condition Condition Condition Status Onset Resolution Last Treating Co mments Source Name Details Category Date Date Treatment Clinician Date Trauma Trauma Disease Active 2021-07 Univers 0-03 ity of 00:00: [place] 00 Medical Branch Menorrhagi Menorrhagi Disease Active U nivers a with a with 4-29 ity of regular regular 00:00: [place] cycle cycle 00 Medical Branch 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-01 ity of depressive depressive 00:[place] disorder disorder 00 Medica l Branch Bipolar Bipolar Disease Active Overview: Univ ers disorder, disorder, 5-19 Formattin i ty of in partial in partial 00:00: g of this [place] remission, remission, 00 note Me dical most [...] anxiety [place] disorder[place] disorder[place] 00 [facility] Branch Attention Attention Disease Active 2008-07 Overview: Univers deficit deficit 2-22 Formattin ity o f hyperactiv hyperactiv 00:00: g of this [place] ity ity 00 note Medical disorder disorder might be Bran ch (ADHD) (ADHD) different from the original. ICD10 Diagnosis Term [place] Worker Utility Allergies, Adverse Reactions, Alerts Allergy Allergy [...] Known DA Active [facility] Allergie [place] NO KNOWN Drug Active Univers ALLERGIE Class ity of [facility] [place] [facility] Family History Family Member Diagnosis Comments Start Date Stop Date Source Natural brother Psychiatry Universit y of [facility] [place] [facility] Natural father Alcohol abuse Univers [facility] Natural father Substance abuse Unive rsity of [facility] [place] [facility] Natural mother Psychiatry [facility] Social History Social Habit Start Date Stop Date Quantity Comments Source History [facility] University o f Alcohol Comment [place] Med ical Branch Exposure to 2022-06-03 2022-06-13 Not sure [facility] SARS-CoV-2 00:00:00 10:33:00 [facility] (event) Branch Alcohol intake 2022-06-13 2022-06-13 Lifetime University of 00:00:00 00:00:00 non-drinker [facility] (finding) Branch Tobacco use and 2022-01-17 2022-01-17 Smokeless tobacco Un iversity of exposure 00:00:00 00:00:00 non-user [place] Medical Branch History SDAK 2020-04-20 2020-04-20 1 University o f Alcohol Frequency 00:00:00 00:00:00 [place] M edical Branch History SDAK 2020-04-20 2020-04-20 99 University o f Alcohol Std 00:00:00 00:00:00 [place] Medical Drinks Branch History SDAK 2020-04-20 2020-04-20 1 University o f Alcohol Binge 00:00:00 00:00:00 [place] Medic al Branch Sex Assigned At [birth year] Universit y of 00:00:00 00:00:00 [facility] [place] [facility] Smoking Status Start Date Stop Date Source Never smoked tobacco [facility] Medications Ordered Filled Start Stop Current Ordering Indication Dosage Frequency Signature Comments Components Source Medication Medication Date Date Medication? Clinician (SIG) Name Name hydrOXYzine 2021-07 Yes [id number] 25mg Take 1 Univers 25 mg 2-12 tablet by ity of tablet 00:00: mouth [place] 00 every 6 Medical (six) Branch hours as needed for Anxiety. lamoTRIgine 2021-07 Yes [id number] 25mg Take 1 Univers 25 mg 2-12 tablet by ity of tablet 00:00: mouth in [place] 00 the Medical morning. Branch naltrexone 2021-07 Yes [id number] 50mg Take 1 Uni vers 50 mg 2-12 tablet by ity of tablet 00:00: mouth in [place] 00 the Medical morning. Branch hydrOXYzine 2021-07 Yes [id number] 25mg Take 1 Univers 25 mg 2-12 tablet by ity of tablet 00:00: mouth [place] 00 every 6 Medical (six) Branch hours as needed for Anxiety. lamoTRIgine 2021-07 Yes [id number] 25mg Take 1 Univers 25 mg 2-12 tablet by ity of tablet 00:00: mouth in [place] 00 the Medical morning. Branch naltrexone 2021-07 Yes [id number] 50mg Take 1 Uni vers 50 mg 2-12 tablet by ity of tablet 00:00: mouth in [place] 00 the Medical morning. Branch atomoxetine 2021-07- Yes [id number] 60mg Take 1 Univers (STRATTERA) 2-12 -13 capsule by i ty of 60 mg 00:00: 04:59 mouth in [place] capsule 00 :00 the Medical morning Branch for 90 days. atomoxetine 2021-07- Yes [id number] 60mg Take 1 Univers (STRATTERA) 2-12 03-13 capsule by i ty of 60 mg 00:00: 04:59 mouth in [place] capsule 00 :00 the [facility] morning Branch for 90 days. hydrOXYzine 2021-07- No 25mg 25 mg, Uni vers (ATARAX) -01 06-30 Oral, ity of tablet 25 05:00: 05:14 ONCE, 1 [place] mg [place] :[place] dose, On Medical e Branch 05/31/22 at 2300, ARLEN hydrOXYzine 2021-07 Yes [id number] 25mg Take 1 Univers 25 mg 1-29 tablet by ity of tablet 00:00: mouth [place] 00 every 6 Medical (six) Branch hours as needed for Anxiety. hydrOXYzine 2021-07- No [id number] 25mg Take 1 Univers 25 mg 1-29 12-12 tablet by ity of tablet 00:00: 00:00 mouth [place] 00 :00 every 6 Medical (six) Branch hours as needed for Anxiety. hydrOXYzine 2021-07- No [id number] 25mg Take 1 Univers 25 mg 1-29 12-12 tablet by ity of tablet 00:00: 00:00 mouth [place] 00 :00 every 6 Medical (six) Branch hours as needed for Anxiety. ARIPiprazol 2021-07- No [id number] 300mg Univers e (ABILIFY -17 11-17 ity of MAINTENA) 17:00: 16:17 [place] injection 00 :00 Medical SSRR 300 mg Branch ARIPiprazol 2021-07- No [id number] 300mg Univers e (ABILIFY 17 11-17 ity of MAINTENA) 17:00: 16:17 [place] injection 00 :00 Medical SSRR 300 mg Branch ARIPiprazol 2021-07- No [id number] 300mg Univers e (ABILIFY -17 11-17 ity of MAINTENA) 17:00: 16:17 [place] injection 00 :00 Medical SSRR 300 mg Branch ABILIFY 2021-07 Yes Univers MAINTENA 1-15 ity of 300 mg sers 00:00: [place] 00 Medical Branch ABILIFY 2021-07 Yes Univers MAINTENA 1-15 ity of 300 mg sers 00:00: [place] 00 Medical Branch ABILIFY 2021-07 Yes Univers MAINTENA 1-15 ity of 300 mg sers 00:00: [place] 00 Medical Branch atomoxetine 2021-07 Yes [id number] 40mg Take 1 Univers 40 mg 0-31 capsule by ity of capsule 00:00: mouth in [place] 00 the Medical morning. Branch lamoTRIgine 2021-07 Yes [id number] 25mg Take 1 Univers 25 mg 0-31 tablet by ity of tablet 00:00: mouth in [place] 00 the Medical morning. Branch atomoxetine 2021-07 Yes [id number] 40mg Take 1 Univers 40 mg 0-31 capsule by ity of capsule 00:00: mouth in [place] the Medical morning. Branch lamoTRIgine 2021-07 Yes [id number] 25mg Take 1 Univers 25 mg 0-31 tablet by ity of tablet 00:00: mouth in [place] the Medical morning. Branch atomoxetine 2021-07 Yes [id number] 40mg Take 1 Univers 40 mg 0-31 capsule by ity of capsule 00:00: mouth in [place] the Medical morning. Branch lamoTRIgine 2021-07 Yes [id number] 25mg Take 1 Univers 25 mg 0-31 tablet by ity of tablet 00:00: mouth in [place] the Medical morning. Branch atomoxetine 2021-07 Yes [id number] 40mg Take 1 Univers 40 mg 0-31 capsule by ity of capsule 00:00: mouth in [place] the Medical morning. Branch lamoTRIgine 2021-07 Yes [id number] 25mg Take 1 Univers 25 mg 0-31 tablet by ity of tablet 00:00: mouth in [place] the Medical morning. Branch atomoxetine 2021-07 Yes [id number] 40mg Take 1 Univers 40 mg 0-31 capsule by ity of capsule 00:00: mouth in [place] the Medical morning. Branch lamoTRIgine 2021-07 Yes [id number] 25mg Take 1 Univers 25 mg 0-31 tablet by ity of tablet 00:00: mouth in [place] the Medical morning. Branch atomoxetine 2021-07 Yes [id number] 40mg Take 1 Univers 40 mg 0-31 capsule by ity of capsule 00:00: mouth in [place] the Medical morning. Branch lamoTRIgine 2021-07 Yes [id number] 25mg Take 1 Univers 25 mg 0-31 tablet by ity of tablet 00:00: mouth in [place] the Medical morning. Branch atomoxetine 2021-07 Yes [id number] 40mg Take 1 Univers 40 mg 0-31 capsule by ity of capsule 00:00: mouth in [place] the Medical morning. Branch lamoTRIgine 2021-07 Yes [id number] 25mg Take 1 Univers 25 mg 0-31 tablet by ity of tablet 00:00: mouth in [place] 00 the Medical morning. Branch atomoxetine 2021-07 Yes [id number] 40mg Take 1 Univers 40 mg 0-31 capsule by ity of capsule 00:00: mouth in [place] 00 the Medical morning. Branch lamoTRIgine 2021-07 Yes [id number] 25mg Take 1 Univers 25 mg 0-31 tablet by ity of tablet 00:00: mouth in [place] 00 the Medical morning. Branch atomoxetine 2021-07 Yes [id number] 40mg Take 1 Univers 40 mg 0-31 capsule by ity of capsule 00:00: mouth in [place] 00 the Medical morning. Branch lamoTRIgine 2021-07 Yes [id number] 25mg Take 1 Univers 25 mg 0-31 tablet by ity of tablet 00:00: mouth in [place] 00 the Medical morning. Branch naltrexone 2021-07- Yes [id number] 50mg Take 1 Univers 50 mg 0-31 01-30 tablet by ity of tablet 00:00: 05:59 mouth in [place] 00 :00 the Medical morning Branch for 90 days. naltrexone 2021-07- Yes [id number] 50mg Take 1 Univers 50 mg 0-31 01-30 tablet by ity of tablet 00:00: 05:59 mouth in [place] 00 :00 the Medical morning Branch for 90 days. naltrexone 2021-07- Yes [id number] 50mg Take 1 Univers 50 mg 0-31 01-30 tablet by ity of tablet 00:00: 05:59 mouth in [place] 00 :00 the Medical morning Branch for 90 days. naltrexone 2021-07- Yes [id number] 50mg Take 1 Univers 50 mg 0-31 01-30 tablet by ity of tablet 00:00: 05:59 mouth in [place] 00 :00 the Medical morning Branch for 90 days. naltrexone 2021-07- Yes [id number] 50mg Take 1 Univers 50 mg 0-31 01-30 tablet by ity of tablet 00:00: 05:59 mouth in [place] 00 :00 the Medical morning Branch for 90 days. naltrexone 2021-07- Yes [id number] 50mg Take 1 Univers 50 mg 0-31 01-30 tablet by ity of tablet 00:00: 05:59 mouth in [place] 00 :00 the Medical morning Branch for 90 days. naltrexone 2021-07- Yes [id number] 50mg Take 1 Univers 50 mg 0-31 01-30 tablet by ity of tablet 00:00: 05:59 mouth in [place] 00 :00 the Medical morning Branch for 90 days. naltrexone 2021-07- Yes [id number] 50mg Take 1 Univers 50 mg 0-31 01-30 tablet by ity of tablet 00:00: 05:59 mouth in [place] 00 :00 the Medical morning Branch for 90 days. naltrexone 2021-07- Yes [id number] 50mg Take 1 Univers 50 mg 0-31 01-30 tablet by ity of tablet 00:00: 05:59 mouth in [place] 00 :00 the Medical morning Branch for 90 days. naltrexone 2021-07- No [id number] 50mg Take 1 Univers 50 mg 0-31 12-12 tablet by ity of tablet 00:00: 00:00 mouth in [place] 00 :00 the Medical morning Branch for 90 days. atomoxetine 2021-07- No [id number] 40mg Take 1 Univers 40 mg 0-31 12-12 capsule by ity of capsule 00:00: 00:00 mouth in [place] 00 :00 the Medical morning. Branch lamoTRIgine 2021-07- No [id number] 25mg Take 1 Univers 25 mg 0-31 12-12 tablet by ity of tablet 00:00: 00:00 mouth in [place] 00 :00 the Medical morning. Branch naltrexone 2021-07- No [id number] 50mg Take 1 Univers 50 mg 0-31 12-12 tablet by ity of tablet 00:00: 00:00 mouth in [place] 00 :00 the Medical morning Branch for 90 days. atomoxetine 2021-07- No [id number] 40mg Take 1 Univers 40 mg 0-31 12-12 capsule by ity of capsule 00:00: 00:00 mouth in [place] 00 :00 the Medical morning. Branch lamoTRIgine 2021-07- No [id number] 25mg Take 1 Univers 25 mg 0-31 12-12 tablet by ity of tablet 00:00: 00:00 mouth in [place] 00 :00 the Medical morning. Branch ARIPiprazol 2021-07- No [id number] 300mg Univers e (ABILIFY 0-20 10-20 ity of MAINTENA) 15:15: 15:46 [place] injection 00 :00 Medical SSRR 300 mg Branch ARIPiprazol 2021-07- No [id number] 300mg Univers e (ABILIFY 0-20 10-20 ity of MAINTENA) 15:15: 15:46 [place] injection 00 :00 Medical SSRR 300 mg Branch ARIPiprazol 2021-07- No [id number] 300mg Univers e (ABILIFY 0-20 10-20 ity of MAINTENA) 15:15: 15:46 [place] injection 00 :00 Medical SSRR 300 mg Branch ARIPiprazol 2021-07- No [id number] 300mg Univers e (ABILIFY 0-20 10-20 ity of MAINTENA) 15:15: 15:46 [place] injection 00 :00 Medical SSRR 300 mg Branch ARIPiprazol 2021-07- No [id number] 300mg Univers e (ABILIFY 0-20 10-20 ity of MAINTENA) 15:15: 15:46 [place] injection 00 :00 Medical SSRR 300 mg Branch ARIPiprazol 2021-07- No [id number] 300mg Univers e (ABILIFY 0-20 10-20 ity of MAINTENA) 15:15: 15:46 [place] injection 00 :00 Medical SSRR 300 mg Branch ARIPiprazol 2021-07- Yes [id number] 300mg Univers e (ABILIFY 0-19 10-20 ity of MAINTENA) 15:45: 03:44 [place] injection 00 :00 Medical SSRR 300 mg Branch lamoTRIgine 2021-07 Yes 25mg Take 1 Univ ers 25 mg 0-18 tablet by ity of tablet 00:00: mouth in [place] the Medical morning. Branch lamoTRIgine 2021-07 Yes 25mg Take 1 Univ ers 25 mg 0-18 tablet by ity of tablet 00:00: mouth in [place] the Medical morning. Branch lamoTRIgine 2021-07 Yes 25mg Take 1 Univ ers 25 mg 0-18 tablet by ity of tablet 00:00: mouth in [place] [address] the Medical morning. Branch lamoTRIgine 2021-07 Yes 25mg Take 1 Univ ers 25 mg 0-18 tablet by ity of tablet 00:00: mouth in [place] [address] the Medical morning. Branch lamoTRIgine 2021-07 Yes 25mg Take 1 Univ ers 25 mg 0-18 tablet by ity of tablet 00:00: mouth in [place] 00 the Medical morning. Branch lamoTRIgine 2-1 Yes 25mg Take 1 Univ ers 25 mg 0-18 tablet by ity of tablet 00:00: mouth in [place] 00 the Medical morning. Branch lamoTRIgine 2-1 Yes 25mg Take 1 Univ ers 25 mg 0-18 tablet by ity of tablet 00:00: mouth in [place] 00 the Medical morning. Branch lamoTRIgine 2-1 Yes 25mg Take 1 Univ ers 25 mg 0-18 tablet by ity of tablet 00:00: mouth in [place] 00 the Medical morning. Branch lamoTRIgine 2-1 Yes 25mg Take 1 Univ ers 25 mg 0-18 tablet by ity of tablet 00:00: mouth in [place] 00 the Medical morning. Branch lamoTRIgine 2-1 Yes 25mg Take 1 Univ ers 25 mg 0-18 tablet by ity of tablet 00:00: mouth in [place] 00 the Medical morning. Branch lamoTRIgine 2-1 Yes 25mg Take 1 Univ ers 25 mg 0-18 tablet by ity of tablet 00:00: mouth in [place] 00 the Medical morning. Branch lamoTRIgine 2021-1 Yes 25mg Take 1 Univ ers 25 mg 0-18 tablet by ity of tablet 00:00: mouth in [place] 00 the Medical morning. Branch lamoTRIgine 2021-1 2022- No 25mg Take 1 Uni vers 25 mg 0-18 10-31 tablet by ity of tablet 00:00: 00:00 mouth in [place] 00 :00 the Medical morning. Branch lamoTRIgine 2-1 2022- No 25mg Take 1 Uni vers 25 mg 0-18 10-31 tablet by ity of tablet 00:00: 00:00 mouth in [place] 00 :00 the Medical morning. Branch lamoTRIgine 2-1 2022- No 25mg Take 1 Uni vers 25 mg 0-18 10-31 tablet by ity of tablet 00:00: 00:00 mouth in [place] 00 :00 the Medical morning. Branch lamoTRIgine 2-1 2022- No 25mg Take 1 Uni vers 25 mg 0-18 10-31 tablet by ity of tablet 00:00: 00:00 mouth in [place] 00 :00 the Medical morning. Branch atomoxetine 2022-1 Yes [id number] 40mg Take 1 Univers 40 mg 0-13 capsule by ity of capsule 00:00: mouth in [place] the Medical morning. Branch atomoxetine 2021-07 Yes [id number] 40mg Take 1 Univers 40 mg 0-13 capsule by ity of capsule 00:00: mouth in [place] the Medical morning. Branch atomoxetine 2021-07 Yes [id number] 40mg Take 1 Univers 40 mg 0-13 capsule by ity of capsule 00:00: mouth in [place] the Medical morning. Branch atomoxetine 2021-07 Yes [id number] 40mg Take 1 Univers 40 mg 0-13 capsule by ity of capsule 00:00: mouth in [place] the Medical morning. Branch atomoxetine 2021-07 Yes [id number] 40mg Take 1 Univers 40 mg 0-13 capsule by ity of capsule 00:00: mouth in [place] the Medical morning. Branch atomoxetine 2021-07 Yes [id number] 40mg Take 1 Univers 40 mg 0-13 capsule by ity of capsule 00:00: mouth in [place] the Medical morning. Branch atomoxetine 2021-07 Yes [id number] 40mg Take 1 Univers 40 mg 0-13 capsule by ity of capsule 00:00: mouth in [place] the Medical morning. Branch atomoxetine 2021-07 Yes [id number] 40mg Take 1 Univers 40 mg 0-13 capsule by ity of capsule 00:00: mouth in [place] the Medical morning. Branch atomoxetine 2021-07 Yes [id number] 40mg Take 1 Univers 40 mg 0-13 capsule by ity of capsule 00:00: mouth in [place] the Medical morning. Branch atomoxetine 2021-07 Yes [id number] 40mg Take 1 Univers 40 mg 0-13 capsule by ity of capsule 00:00: mouth in [place] the Medical morning. Branch atomoxetine 2021-07 Yes [id number] 40mg Take 1 Univers 40 mg 0-13 capsule by ity of capsule 00:00: mouth in [place] the Medical morning. Branch atomoxetine 2021-07 Yes [id number] 40mg Take 1 Univers 40 mg 0-13 capsule by ity of capsule 00:00: mouth in [place] 00 the Medical morning. Branch atomoxetine 2021-07 Yes [id number] 40mg Take 1 Univers 40 mg 0-13 capsule by ity of capsule 00:00: mouth in [place] the Medical morning. Branch atomoxetine 2021-07 Yes [id number] 40mg Take 1 Univers 40 mg 0-13 capsule by ity of capsule 00:00: mouth in [place] 00 the Medical morning. Branch atomoxetine 2021-07 Yes [id number] 40mg Take 1 Univers 40 mg 0-13 capsule by ity of capsule 00:00: mouth in [place] 00 the Medical morning. Branch atomoxetine 2021-07 Yes [id number] 40mg Take 1 Univers 40 mg 0-13 capsule by ity of capsule 00:00: mouth in [place] 00 the Medical morning. Branch atomoxetine 2021-07 Yes [id number] 40mg Take 1 Univers 40 mg 0-13 capsule by ity of capsule 00:00: mouth in [place] 00 the Medical morning. Branch atomoxetine 2021-07 Yes [id number] 40mg Take 1 Univers 40 mg 0-13 capsule by ity of capsule 00:00: mouth in [place] 00 the Medical morning. Branch atomoxetine 2021-07- No [id number] 40mg Take 1 Univers 40 mg 0-13 10-31 capsule by ity of capsule 00:00: 00:00 mouth in [place] 00 :00 the Medical morning. Branch atomoxetine 2021-07- No [id number] 40mg Take 1 Univers 40 mg 0-13 10-31 capsule by ity of capsule 00:00: 00:00 mouth in [place] 00 :00 the Medical morning. Branch atomoxetine 2021-07- No [id number] 40mg Take 1 Univers 40 mg 0-13 10-31 capsule by ity of capsule 00:00: 00:00 mouth in [place] 00 :00 the Medical morning. Branch atomoxetine 2021-07- No [id number] 40mg Take 1 Univers 40 mg 0-13 10-31 capsule by ity of capsule 00:00: 00:00 mouth in [place] 00 :00 the Medical morning. Branch NaCl 0.9% 2021-07- No 1000mL at 999 Uni vers (NS) bolus 0-09 10-10 mL/hr, ity of infusion 23:45: 03:09 1,000 mL, [place] 1,000 mL 00 :00 IV Medical Infusion, Branch ONCE, 1 dose, On 04/10/22 at 1845, ARLEN lamoTRIgine 2021-07 Yes 25mg Take 1 Univ ers 25 mg 0-07 tablet by ity of tablet 00:00: mouth in [place] 00 the Medical morning. Branch atomoxetine 2022-1 Yes 40mg Take 1 Univ ers 40 mg 0-07 capsule by ity of capsule 00:00: mouth in [place] the Medical morning. Branch lamoTRIgine 2022-1 Yes 25mg Take 1 Univ ers 25 mg 0-07 tablet by ity of tablet 00:00: mouth in [place] the Medical morning. Branch atomoxetine 2022-1 Yes 40mg Take 1 Univ ers 40 mg 0-07 capsule by ity of capsule 00:00: mouth in [place] the Medical morning. Branch lamoTRIgine 2022-1 Yes 25mg Take 1 Univ ers 25 mg 0-07 tablet by ity of tablet 00:00: mouth in [place] the Medical morning. Branch lamoTRIgine 2022-1 Yes 25mg Take 1 Univ ers 25 mg 0-07 tablet by ity of tablet 00:00: mouth in [place] the Medical morning. Branch lamoTRIgine 2022-1 Yes 25mg Take 1 Univ ers 25 mg 0-07 tablet by ity of tablet 00:00: mouth in [place] the Medical morning. Branch lamoTRIgine 2022-1 Yes 25mg Take 1 Univ ers 25 mg 0-07 tablet by ity of tablet 00:00: mouth in [place] the Medical morning. Branch lamoTRIgine 2022-1 Yes 25mg Take 1 Univ ers 25 mg 0-07 tablet by ity of tablet 00:00: mouth in [place] the Medical morning. Branch lamoTRIgine 2022-1 Yes 25mg Take 1 Univ ers 25 mg 0-07 tablet by ity of tablet 00:00: mouth in [place] the Medical morning. Branch lamoTRIgine 2022-1 Yes 25mg Take 1 Univ ers 25 mg 0-07 tablet by ity of tablet 00:00: mouth in [place] the Medical morning. Branch atomoxetine 2022-1 Yes 40mg Take 1 Univ ers 40 mg 0-07 capsule by ity of capsule 00:00: mouth in [place] 00 the Medical morning. Branch lamoTRIgine 2022-1 Yes 25mg Take 1 Univ ers 25 mg 0-07 tablet by ity of tablet 00:00: mouth in [place] 00 the Medical morning. Branch atomoxetine 2022-1 Yes 40mg Take 1 Univ ers 40 mg 0-07 capsule by ity of capsule 00:00: mouth in [place] 00 the Medical morning. Branch polyethylen 2021-07- Yes [id number] 17g Take 1 Univers e glycol 0-07 11-07 Packet by ity o f 3350 17 00:00: 05:59 mouth in [place] gram powder 00 :00 the [facility] for 30 days. polyethylen 2021-07- Yes [id number] 17g Take 1 Univers e glycol 0-07 11-07 Packet by ity o f 3350 17 00:00: 05:59 mouth in [place] gram powder 00 :00 the [facility] for 30 days. polyethylen 2021-07- Yes [id number] 17g Take 1 Univers e glycol 0-07 11-07 Packet by ity o f 3350 17 00:00: 05:59 mouth in [place] gram powder 00 :00 the [facility] for 30 days. polyethylen 2021-07- Yes [id number] 17g Take 1 Univers e glycol 0-07 11-07 Packet by ity o f 3350 17 00:00: 05:59 mouth in [place] gram powder 00 :00 the [facility] for 30 days. polyethylen 2021-07- Yes [id number] 17g Take 1 Univers e glycol 0-07 11-07 Packet by ity o f 3350 17 00:00: 05:59 mouth in [place] gram powder 00 :00 the [facility] for 30 days. polyethylen 2021-07- Yes [id number] 17g Take 1 Univers e glycol 0-07 11-07 Packet by ity o f 3350 17 00:00: 05:59 mouth in [place] gram powder 00 :00 the [facility] for 30 days. polyethylen 2021-07- Yes [id number] 17g Take 1 Univers e glycol 0-07 11-07 Packet by ity o f 3350 17 00:00: 05:59 mouth in [place] gram powder 00 :00 the [facility] for 30 days. polyethylen 2021-07- Yes [id number] 17g Take 1 Univers e glycol 0-07 11-07 Packet by ity o f 3350 17 00:00: 05:59 mouth in [place] gram powder 00 :00 the [facility] for 30 days. polyethylen 2021-07- Yes [id number] 17g Take 1 Univers e glycol 0-07 11-07 Packet by ity o f 3350 17 00:00: 05:59 mouth in [place] gram powder 00 :00 the Medical morning Branch for 30 days. polyethylen 2021-07- Yes [id number] 17g Take 1 Univers e glycol 0-07 11-07 Packet by ity o f 3350 17 00:00: 05:59 mouth in [place] gram powder 00 :00 the Medical morning Branch for 30 days. polyethylen 2021-07- Yes [id number] 17g Take 1 Univers e glycol 0-07 11-07 Packet by ity o f 3350 17 00:00: 05:59 mouth in [place] gram powder 00 :00 the Medical morning Branch for 30 days. polyethylen 2021-07- Yes [id number] 17g Take 1 Univers e glycol 0-07 11-07 Packet by ity o f 3350 17 00:00: 05:59 mouth in [place] gram powder 00 :00 the [facility] morning Branch for 30 days. polyethylen 2021-07- Yes [id number] 17g Take 1 Univers e glycol 0-07 11-07 Packet by ity o f 3350 17 00:00: 05:59 mouth in [place] gram powder 00 :00 the [facility] morning Branch for 30 days. polyethylen 2021-07- Yes [id number] 17g Take 1 Univers e glycol 0-07 11-07 Packet by [facility] o f 3350 17 00:00: 05:59 mouth in [place] gram powder 00 :00 the Medical morning Branch for 30 days. polyethylen 2021-07- Yes [id number] 17g Take 1 [facility] glycol 0-07 11-07 Packet by [facility] o f 3350 17 00:00: 05:59 mouth in [place] gram powder 00 :00 the Medical morning Branch for 30 days. polyethylen 2021-07- Yes [id number] 17g Take 1 [facility] glycol 0-07 11-07 Packet by [facility] o f 3350 17 00:00: 05:59 mouth in [place] gram powder 00 :00 the Medical morning Branch for 30 days. polyethylen 2021-07- Yes [id number] 17g Take 1 [facility] glycol 0-07 11-07 Packet by [facility] o f 3350 17 00:00: 05:59 mouth in [place] gram powder 00 :00 the Medical morning Branch for 30 days. polyethylen 2021-07- Yes [id number] 17g Take 1 [facility] glycol 0-07 11-07 Packet by [facility] o f 3350 17 00:00: 05:59 mouth in [place] gram powder 00 :00 the Medical morning Branch for 30 days. polyethylen 2021-07- Yes [id number] 17g Take 1 [facility] glycol 0-07 11-07 Packet by [facility] f 3350 17 00:00: 05:59 mouth in [place] gram powder 00 :00 the Medical morning Branch for 30 days. polyethylen 2021-07- Yes [id number] 17g Take 1 [facility] glycol 0-07 11-07 Packet by [facility] o f 3350 17 00:00: 05:59 mouth in [place] gram powder 00 :00 the Medical morning Branch for 30 days. polyethylen 2021-07- Yes [id number] 17g Take 1 [facility] glycol 0-07 11-07 Packet by [facility] o f 3350 17 00:00: 05:59 mouth in [place] gram powder 00 :00 the Medical morning Branch for 30 days. polyethylen 2021-07- Yes [id number] 17g Take 1 [facility] glycol 0-07 11-07 Packet by [facility] o f 3350 17 00:00: 05:59 mouth in [place] gram powder 00 :00 the Medical morning Branch for 30 days. polyethylen 2021-07- Yes [id number] 17g Take 1 [facility] glycol 0-07 11-07 Packet by [facility] o f 3350 17 00:00: 05:59 mouth in [place] gram powder 00 :00 the Medical morning Branch for 30 days. polyethylen 2021-07- Yes [id number] 17g Take 1 [facility] glycol 0-07 11-07 Packet by [facility] o f 3350 17 00:00: 05:59 mouth in [place] gram powder 00 :00 the Medical morning Branch for 30 days. polyethylen 2021-07- Yes [id number] 17g Take 1 [facility] glycol 0-07 11-07 Packet by [facility] o f 3350 17 00:00: 05:59 mouth in [place] gram powder 00 :00 the Medical morning Branch for 30 days. polyethylen 2021-2021- No [id number] 17g Take 1 [facility] glycol 0-07 11-07 Packet by [facility] o f 3350 17 00:00: 05:59 mouth in [place] gram powder 00 :00 the Medical morning Branch for 30 days. lamoTRIgine 2021-2021- No 25mg Take 1 [facility] vers 25 mg 0-07 10-18 tablet by [facility] of tablet 00:00: 00:00 mouth in [place] 00 :00 the Medical morning. Branch lamoTRIgine 2021-2021- No 25mg Take 1 [facility] vers 25 mg 0-07 10-18 tablet by [facility] of tablet 00:00: 00:00 mouth in [place] 00 :00 the Medical morning. Branch lamoTRIgine 2021-2021- No 25mg Take 1 [facility] vers 25 mg 0-07 10-18 tablet by [facility] tablet 00:00: 00:00 mouth in [place] 00 :00 the Medical morning. Branch lamoTRIgine 2021-2021- No 25mg Take 1 [facility] vers 25 mg 0-07 10-18 tablet by [facility] of tablet 00:00: 00:00 mouth in [place] 00 :00 the Medical morning. Branch lamoTRIgine 2021-2021- No 25mg Take 1 [facility] vers 25 mg 0-07 10-18 tablet by [facility] tablet 00:00: 00:00 mouth in [place] 00 :00 the Medical morning. Branch lamoTRIgine 2021-2021- No 25mg Take 1 [facility] vers 25 mg 0-07 10-18 tablet by [facility] of tablet 00:00: 00:00 mouth in [place] 00 :00 the Medical morning. Branch lamoTRIgine 2021-2021- No 25mg Take 1 [facility] vers 25 mg 0-07 10-18 tablet by [facility] of tablet 00:00: 00:00 mouth in [place] 00 :00 the Medical morning. Branch lamoTRIgine 2021-2021- No 25mg Take 1 [facility] vers 25 mg 0-07 10-18 tablet by [facility] of tablet 00:00: 00:00 mouth in [place] 00 :00 the Medical morning. Branch lamoTRIgine 2021-2021- No 25mg Take 1 [facility] vers 25 mg 0-07 10-18 tablet by [facility] of tablet 00:00: 00:00 mouth in [place] 00 :00 the Medical morning. Branch lamoTRIgine 2021-07- No 25mg Take 1 [facility] vers 25 mg 0-07 10-18 tablet by [facility] of tablet 00:00: 00:00 mouth in [place] 00 :00 the Medical morning. Branch lamoTRIgine 2021-07- No 25mg Take 1 [facility] vers 25 mg 0-07 10-18 tablet by [facility] of tablet 00:00: 00:00 mouth in [place] 00 :00 the Medical morning. Branch tamsulosin 2021-07- Yes [id number] .4mg Take 1 [facility] 0.4 mg 24 0-07 10-15 capsule by [facility] of hr capsule 00:00: 04:59 mouth in [place] 00 :00 the Medical morning Branch for 7 days. tamsulosin 2021-07- Yes [id number] .4mg Take 1 [facility] 0.4 mg 24 0-07 10-15 capsule by [facility] hr capsule 00:00: 04:59 mouth in [place] 00 :00 the Medical morning Branch for 7 days. tamsulosin 2021-07- Yes [id number] .4mg Take 1 [facility] 0.4 mg 24 0-07 10-15 capsule by [facility] hr capsule 00:00: 04:59 mouth in [place] 00 :00 the Medical morning Branch for 7 days. tamsulosin 2021-07- Yes [id number] .4mg Take 1 [facility] 0.4 mg 24 0-07 10-15 capsule by [facility] of hr capsule 00:00: 04:59 mouth in [place] 00 :00 the Medical morning Branch for 7 days. tamsulosin 2021-07- Yes [id number] .4mg Take 1 [facility] 0.4 mg 24 0-07 10-15 capsule by [facility] of hr capsule 00:00: 04:59 mouth in [place] 00 :00 the Medical morning Branch for 7 days. tamsulosin 2021-07- No [id number] .4mg Take 1 [facility] 0.4 mg 24 0-07 10-15 capsule by [facility] of hr capsule 00:00: 04:59 mouth in [place] 00 :00 the Medical morning Branch for 7 days. tamsulosin 2021-07- No [id number] .4mg Take 1 [facility] 0.4 mg 24 0-07 10-15 capsule by [facility] of hr capsule 00:00: 04:59 mouth in [place] 00 :00 the [facility] morning Branch for 7 days. tamsulosin 2021-07- No [id number] .4mg Take 1 [facility] 0.4 mg 24 0-07 10-15 capsule by [facility] of hr capsule 00:00: 04:59 mouth in [place] 00 :00 the [facility] morning Branch for 7 days. tamsulosin 2021-07- No [id number] .4mg Take 1 [facility] 0.4 mg 24 0-07 10-15 capsule by [facility] of hr capsule 00:00: 04:59 mouth in [place] 00 :00 the [facility] morning Branch for 7 days. tamsulosin 2021-07- No [id number] .4mg Take 1 [facility] 0.4 mg 24 0-07 10-15 capsule by [facility] of hr capsule 00:00: 04:59 mouth in [place] 00 :00 the [facility] for 7 days. tamsulosin 2021-07- No [id number] .4mg Take 1 [facility] 0.4 mg 24 0-07 10-15 capsule by [facility] of hr capsule 00:00: 04:59 mouth in [place] 00 :00 the [facility] for 7 days. tamsulosin 2021-07- No [id number] .4mg Take 1 [facility] 0.4 mg 24 0-07 10-15 capsule by [facility] of hr capsule 00:00: 04:59 mouth in [place] 00 :00 the [facility] morning Branch for 7 days. tamsulosin 2021-07- No [id number] .4mg Take 1 [facility] 0.4 mg 24 0-07 10-15 capsule by [facility] of hr capsule 00:00: 04:59 mouth in [place] 00 :00 the [facility] morning Branch for 7 days. tamsulosin 2021-07 No [id number] .4mg Take 1 [facility] 0.4 mg 24 0-07 10-15 capsule by [facility] of hr capsule 00:00: 04:59 mouth in [place] 00 :00 the [facility] morning Branch for 7 days. tamsulosin 2021-07- No [id number] .4mg Take 1 [facility] 0.4 mg 24 0-07 10-15 capsule by [facility] of hr capsule 00:00: 04:59 mouth in [place] 00 :00 the [facility] for 7 days. tamsulosin 2021-07- No [id number] .4mg Take 1 [facility] 0.4 mg 24 0-07 10-15 capsule by [facility] of hr capsule 00:00: 04:59 mouth in [place] 00 :00 the [facility] for 7 days. tamsulosin 2021-07- No [id number] .4mg Take 1 [facility] 0.4 mg 24 0-07 10-15 capsule by [facility] of hr capsule 00:00: 04:59 mouth in [place] 00 :00 the [facility] for 7 days. tamsulosin 2021-07- No [id number] .4mg Take 1 [facility] 0.4 mg 24 0-07 10-15 capsule by [facility] of hr capsule 00:00: 04:59 mouth in [place] 00 :00 the [facility] for 7 days. tamsulosin 2021-07- No [id number] .4mg Take 1 [facility] 0.4 mg 24 0-07 10-15 capsule by [facility] of hr capsule 00:00: 04:59 mouth in [place] 00 :00 the [facility] for 7 days. tamsulosin 2021-07- No [id number] .4mg Take 1 [facility] 0.4 mg 24 0-07 10-15 capsule by [facility] of hr capsule 00:00: 04:59 mouth in [place] 00 :00 the [facility] for 7 days. tamsulosin 2021-07 No [id number] .4mg Take 1 [facility] 0.4 mg 24 0-07 10-15 capsule by [facility] of hr capsule 00:00: 04:59 mouth in [place] 00 :00 the [facility] for 7 days. atomoxetine 2021-07- No 40mg Take 1 [facility] vers 40 mg 0-07 10-13 capsule by [facility] of capsule 00:00: 00:00 mouth in [place] 00 :00 the [facility] morning. Branch atomoxetine 2021-07- No 40mg Take 1 [facility] vers 40 mg 0-07 10-13 capsule by [facility] of capsule 00:00: 00:00 mouth in [place] 00 :00 the Medical morning. Branch atomoxetine 2021-1 2- No 40mg Take 1 [facility] vers 40 mg 0-07 10-13 capsule by [facility] of capsule 00:00: 00:00 mouth in [place] 00 :00 the Medical morning. Branch atomoxetine 2-1 2022- No 40mg Take 1 [facility] vers 40 mg 0-07 10-13 capsule by [facility] of capsule 00:00: 00:00 mouth in [place] 00 :00 the Medical morning. Branch atomoxetine 2-1 2- No 40mg Take 1 [facility] vers 40 mg 0-07 10-13 capsule by [facility] of capsule 00:00: 00:00 mouth in [place] 00 :00 the Medical morning. Branch atomoxetine 2021-1 2- No 40mg Take 1 [facility] vers 40 mg 0-07 10-13 capsule by [facility] of capsule 00:00: 00:00 mouth in [place] 00 :00 the Medical morning. Branch atomoxetine 2-1 2- No 40mg Take 1 [facility] vers 40 mg 0-07 10-13 capsule by [facility] of capsule 00:00: 00:00 mouth in [place] 00 :00 the Medical morning. Branch atomoxetine 2-1 2- No 40mg Take 1 [facility] vers 40 mg 0-07 10-13 capsule by [facility] of capsule 00:00: 00:00 mouth in [place] 00 :00 the Medical morning. Branch atomoxetine 2-1 2- No 40mg Take 1 [facility] vers 40 mg 0-07 10-13 capsule by [facility] of capsule 00:00: 00:00 mouth in [place] 00 :00 the Medical morning. Branch atomoxetine 2-1 2- No 40mg Take 1 [facility] vers 40 mg 0-07 10-13 capsule by [facility]y of capsule 00:00: 00:00 mouth in [place] 00 :00 the Medical morning. Branch atomoxetine 2-1 2022- No 40mg Take 1 [facility] vers 40 mg 0-07 10-13 capsule by [facility]y of capsule 00:00: 00:00 mouth in [place] 00 :00 the Medical morning. Branch atomoxetine 2-1 2022- No 40mg Take 1 [facility] vers 40 mg 0-07 10-13 capsule by [facility] of capsule 00:00: 00:00 mouth in [place] 00 :00 the Medical morning. Branch atomoxetine 2022-1 2022- No 40mg Take 1 [facility] vers 40 mg 0-07 10-13 capsule by [facility]y of capsule 00:00: 00:00 mouth in [place] 00 :00 the Medical morning. [place] atomoxetine 2021-07- No 40mg Take 1 [facility] vers 40 mg 0-07 10-13 capsule by [facility] of capsule 00:00: 00:00 mouth in [place] 00 :00 the Medical morning. [place] atomoxetine 2021-07- No 40mg Take 1 [facility] vers 40 mg 0-07 10-13 capsule by [facility] of capsule 00:00: 00:00 mouth in [place] 00 :00 the Medical morning. [place] atomoxetine 2021-07- No 40mg Take 1 [facility] vers 40 mg 0-07 10-13 capsule by [facility] of capsule 00:00: 00:00 mouth in [place] 00 :00 the Medical morning. [place] atomoxetine 2021-07- No 40mg Take 1 [facility] vers 40 mg 0-07 10-13 capsule by [facility] of capsule 00:00: 00:00 mouth in [place] 00 :00 the Medical morning. [place] traZODone 2021-07 Yes 50mg 50 mg, [facility] (DESYREL) 0-06 Oral, QHS, ity of tablet 50 02:00: First dose [place] mg 00 on Mon04/06/22 at [place] 2100, Until Discontinu ed, Routine acetaminoph 2021-07 Yes [id number] 1000mg Take 2 [facility] en 500 mg 0-06 tablets by [facility]y of tablet 00:00: mouth [place] 00 every 8 Medical (eight) Branch hours as needed for Pain. traZODone 2021-07 Yes 50mg Take 1 [facility] 50 mg 0-06 tablet by [facility]y of tablet 00:00: mouth at [place] 00 bedtime. [facility] methocarbam 2021-07 Yes [id number] 500mg Take 1 [facility] oL 500 mg 0-06 tablet by ity o f tablet 00:00: mouth 4 [place] 00 (four) Medical times Branch daily as needed (muscle spasms). ibuprofen 2021-07 Yes [id number] 600mg Take 1 [facility] 600 mg 0-06 tablet by [facility]y of tablet 00:00: mouth [place] 00 every 6 Medical (six) Branch hours as needed for Pain (scale 4-6). acetaminoph 2021-07 Yes [id number] 1000mg Take 2 [facility] en 500 mg 0-06 tablets by [facility]y of tablet 00:00: mouth [place] 00 every 8 Medical (eight) Branch hours as needed for Pain. traZODone 2021-07 Yes 50mg Take 1 [facility] 50 mg 0-06 tablet by [facility]y of tablet 00:00: mouth at [place] 00 bedtime. Medical Branch methocarbam 2021-07 Yes [id number] 500mg Take 1 [facility] oL 500 mg 0-06 tablet by [facility]y o f tablet 00:00: mouth 4 [place] 00 (four) Medical times Branch daily as needed (muscle spasms). ibuprofen 2021-07 Yes [id number] 600mg Take 1 [facility] 600 mg 0-06 tablet by [facility]y of tablet 00:00: mouth [place] 00 every 6 Medical (six) Branch hours as needed for Pain (scale 4-6). acetaminoph 2021-07 Yes [id number] 1000mg Take 2 [facility] en 500 mg 0-06 tablets by ity of tablet 00:00: mouth [place] 00 every 8 Medical (eight) Branch hours as needed for Pain. traZODone 2021-07 Yes 50mg Take 1 [facility] 50 mg 0-06 tablet by [facility]y of tablet 00:00: mouth at [place] 00 bedtime. Medical Branch methocarbam 2021-07 Yes [id number] 500mg Take 1 [facility] oL 500 mg 0-06 tablet by ity o f tablet 00:00: mouth 4 [place] 00 (four) Medical times Branch daily as needed (muscle spasms). ibuprofen 2021-07 Yes [id number] 600mg Take 1 [facility] 600 mg 0-06 tablet by ity of tablet 00:00: mouth [place] 00 every 6 Medical (six) Branch hours as needed for Pain (scale 4-6). acetaminoph 2021-07 Yes [id number] 1000mg Take 2 [facility] en 500 mg 0-06 tablets by ity of tablet 00:00: mouth [place] 00 every 8 Medical (eight) Branch hours as needed for Pain. traZODone 2021-07 Yes 50mg Take 1 [facility] 50 mg 0-06 tablet by [facility]y of tablet 00:00: mouth at [place] 00 bedtime. Medical Branch methocarbam 2021-07 Yes [id number] 500mg Take 1 [facility] oL 500 mg 0-06 tablet by ity o f tablet 00:00: mouth 4 00 (four) Medical times Branch daily as needed (muscle spasms). ibuprofen 2021-07 Yes [id number] 600mg Take 1 [facility] 600 mg 0-06 tablet by ity of tablet 00:00: mouth [place] 00 every 6 Medical (six) Branch hours as needed for Pain (scale 4-6). acetaminoph 2021-07 Yes [id number] 1000mg Take 2 [facility] en 500 mg 0-06 tablets by ity of tablet 00:00: mouth [place] 00 every 8 Medical (eight) Branch hours as needed for Pain. traZODone 2021-07 Yes 50mg Take 1 [facility] 50 mg 0-06 tablet by [facility]y of tablet 00:00: mouth at [place] 00 bedtime. Medical Branch methocarbam 2021-07 Yes [id number] 500mg Take 1 [facility] oL 500 mg 0-06 tablet by ity o f tablet 00:00: mouth 00 (four) Medical times Branch daily as needed (muscle spasms). ibuprofen 2021-07 Yes [id number] 600mg Take 1 [facility] 600 mg 0-06 tablet by ity of tablet 00:00: mouth [place] 00 every 6 Medical (six) Branch hours as needed for Pain (scale 4-6). acetaminoph 2021-07 Yes [id number] 1000mg Take 2 [facility] en 500 mg 0-06 tablets by ity of tablet 00:00: mouth [place] 00 every 8 Medical (eight) Branch hours as needed for Pain. traZODone 2021-07 Yes 50mg Take 1 [facility] 50 mg 0-06 tablet by ity of tablet 00:00: mouth at [place] 00 bedtime. Medical Branch methocarbam 2021-07 Yes [id number] 500mg Take 1 [facility] oL 500 mg 0-06 tablet by ity o f tablet 00:00: mouth 4 00 (four) Medical times Branch daily as needed (muscle spasms). ibuprofen 2021-07 Yes [id number] 600mg Take 1 [facility] 600 mg 0-06 tablet by ity of tablet 00:00: mouth [place] 00 every 6 Medical (six) Branch hours as needed for Pain (scale 4-6). acetaminoph 2021-07 Yes [id number] 1000mg Take 2 [facility] en 500 mg 0-06 tablets by ity of tablet 00:00: mouth [place] 00 every 8 Medical (eight) Branch hours as needed for Pain. traZODone 2021-07 Yes 50mg Take 1 [facility] 50 mg 0-06 tablet by ity of tablet 00:00: mouth at [place] 00 bedtime. Medical Branch methocarbam 2021-07 Yes [id number] 500mg Take 1 [facility] oL 500 mg 0-06 tablet by ity o f tablet 00:00: mouth (four) Medical times Branch daily as needed (muscle spasms). ibuprofen 2021-07 Yes [id number] 600mg Take 1 [facility] 600 mg 0-06 tablet by ity of tablet 00:00: mouth [place] 00 every 6 Medical (six) Branch hours as needed for Pain (scale 4-6). acetaminoph 2021-07 Yes [id number] 1000mg Take 2 [facility] en 500 mg 0-06 tablets by ity of tablet 00:00: mouth 00 every 8 Medical (eight) Branch hours as needed for Pain. traZODone 2021-07 Yes 50mg Take 1 [facility] 50 mg 0-06 tablet by [facility]y of tablet 00:00: mouth at 00 bedtime. Medical Branch methocarbam 2021-07 Yes [id number] 500mg Take 1 [facility] oL 500 mg 0-06 tablet by ity o f tablet 00:00: mouth (four) Medical times Branch daily as needed (muscle spasms). ibuprofen 2021-07 Yes [id number] 600mg Take 1 [facility] 600 mg 0-06 tablet by ity of tablet 00:00: mouth 00 every 6 Medical (six) Branch hours as needed for Pain (scale 4-6). acetaminoph 2021-07 Yes [id number] 1000mg Take 2 [facility] en 500 mg 0-06 tablets by ity of tablet 00:00: mouth [place] 00 every 8 Medical (eight) Branch hours as needed for Pain. traZODone 2021-07 Yes 50mg Take 1 [facility] 50 mg 0-06 tablet by ity of tablet 00:00: mouth at [place] 00 bedtime. Medical Branch methocarbam 2021-07 Yes [id number] 500mg Take 1 [facility] oL 500 mg 0-06 tablet by ity o f tablet 00:00: mouth (four) Medical times Branch daily as needed (muscle spasms). ibuprofen 2021-07 Yes [id number] 600mg Take 1 [facility] 600 mg 0-06 tablet by ity of tablet 00:00: mouth [place] 00 every 6 Medical (six) Branch hours as needed for Pain (scale 4-6). acetaminoph 2021-07 Yes [id number] 1000mg Take 2 [facility] en 500 mg 0-06 tablets by ity of tablet 00:00: mouth [place] 00 every 8 Medical (eight) Branch hours as needed for Pain. traZODone 2021-07 Yes 50mg Take 1 [facility] 50 mg 0-06 tablet by ity of tablet 00:00: mouth at [place] 00 bedtime. Medical Branch methocarbam 2021-07 Yes [id number] 500mg Take 1 [facility] oL 500 mg 0-06 tablet by ity o f tablet 00:00: mouth 4 [place] 00 (four) Medical times Branch daily as needed (muscle spasms). ibuprofen 2021-07 Yes [id number] 600mg Take 1 [facility] 600 mg 0-06 tablet by ity of tablet 00:00: mouth [place] 00 every 6 Medical (six) Branch hours as needed for Pain (scale 4-6). acetaminoph 2021-07 Yes [id number] 1000mg Take 2 [facility] en 500 mg 0-06 tablets by ity of tablet 00:00: mouth [place] 00 every 8 Medical (eight) Branch hours as needed for Pain. traZODone 2021-07 Yes 50mg Take 1 [facility] 50 mg 0-06 tablet by ity of tablet 00:00: mouth at [place] 00 bedtime. Medical Branch methocarbam 2021-07 Yes [id number] 500mg Take 1 [facility] oL 500 mg 0-06 tablet by ity o f tablet 00:00: mouth 4 [place] 00 (four) Medical times Branch daily as needed (muscle spasms). ibuprofen 2021-07 Yes [id number] 600mg Take 1 [facility] 600 mg 0-06 tablet by ity of tablet 00:00: mouth [place] 00 every 6 Medical (six) Branch hours as needed for Pain (scale 4-6). acetaminoph 2021-07 Yes [id number] 1000mg Take 2 [facility] en 500 mg 0-06 tablets by ity of tablet 00:00: mouth [place] 00 every 8 Medical (eight) Branch hours as needed for Pain. traZODone 2021-07 Yes 50mg Take 1 [facility] 50 mg 0-06 tablet by ity of tablet 00:00: mouth at [place] 00 bedtime. Medical Branch methocarbam 2021-07 Yes [id number] 500mg Take 1 [facility] oL 500 mg 0-06 tablet by ity o f tablet 00:00: mouth 4 00 (four) Medical times Branch daily as needed (muscle spasms). ibuprofen 2021-07 Yes [id number] 600mg Take 1 [facility] 600 mg 0-06 tablet by ity of tablet 00:00: mouth [place] 00 every 6 Medical (six) Branch hours as needed for Pain (scale 4-6). acetaminoph 2021-07 Yes [id number] 1000mg Take 2 [facility] en 500 mg 0-06 tablets by ity of tablet 00:00: mouth [place] 00 every 8 Medical (eight) Branch hours as needed for Pain. traZODone 2021-07 Yes 50mg Take 1 [facility] 50 mg 0-06 tablet by ity of tablet 00:00: mouth at 00 bedtime. Medical Branch methocarbam 2021-07 Yes [id number] 500mg Take 1 [facility] oL 500 mg 0-06 tablet by ity o f tablet 00:00: mouth (four) Medical times Branch daily as needed (muscle spasms). ibuprofen 2021-07 Yes [id number] 600mg Take 1 [facility] 600 mg 0-06 tablet by ity of tablet 00:00: mouth [place] 00 every 6 Medical (six) Branch hours as needed for Pain (scale 4-6). acetaminoph 2021-07 Yes [id number] 1000mg Take 2 [facility] en 500 mg 0-06 tablets by ity of tablet 00:00: mouth [place] 00 every 8 Medical (eight) Branch hours as needed for Pain. traZODone 2021-07 Yes 50mg Take 1 [facility] 50 mg 0-06 tablet by ity of tablet 00:00: mouth at [place] 00 bedtime. Medical Branch methocarbam 2021-07 Yes [id number] 500mg Take 1 [facility] oL 500 mg 0-06 tablet by ity o f tablet 00:00: mouth 4 00 (four) Medical times Branch daily as needed (muscle spasms). ibuprofen 2021-07 Yes [id number] 600mg Take 1 [facility] 600 mg 0-06 tablet by ity of tablet 00:00: mouth [place] 00 every 6 Medical (six) Branch hours as needed for Pain (scale 4-6). acetaminoph 2021-07 Yes [id number] 1000mg Take 2 [facility] en 500 mg 0-06 tablets by ity of tablet 00:00: mouth [place] 00 every 8 Medical (eight) Branch hours as needed for Pain. traZODone 2021-07 Yes 50mg Take 1 [facility] 50 mg 0-06 tablet by ity of tablet 00:00: mouth at [place] 00 bedtime. Medical Branch methocarbam 2021-07 Yes [id number] 500mg Take 1 [facility] oL 500 mg 0-06 tablet by ity o f tablet 00:00: mouth (four) Medical times Branch daily as needed (muscle spasms). ibuprofen 2021-07 Yes [id number] 600mg Take 1 [facility] 600 mg 0-06 tablet by ity of tablet 00:00: mouth [place] 00 every 6 Medical (six) Branch hours as needed for Pain (scale 4-6). acetaminoph 2021-07 Yes [id number] 1000mg Take 2 [facility] en 500 mg 0-06 tablets by ity of tablet 00:00: mouth [place] 00 every 8 Medical (eight) Branch hours as needed for Pain. traZODone 2021-07 Yes 50mg Take 1 [facility] 50 mg 0-06 tablet by ity of tablet 00:00: mouth at [place] 00 bedtime. Medical Branch methocarbam 2021-07 Yes [id number] 500mg Take 1 [facility] oL 500 mg 0-06 tablet by ity o f tablet 00:00: mouth (four) Medical times Branch daily as needed (muscle spasms). ibuprofen 2021-07 Yes [id number] 600mg Take 1 [facility] 600 mg 0-06 tablet by ity of tablet 00:00: mouth [place] 00 every 6 Medical (six) Branch hours as needed for Pain (scale 4-6). acetaminoph 2021-07 Yes [id number] 1000mg Take 2 [facility] en 500 mg 0-06 tablets by ity of tablet 00:00: mouth [place] 00 every 8 Medical (eight) Branch hours as needed for Pain. traZODone 2021-07 Yes 50mg Take 1 [facility] 50 mg 0-06 tablet by ity of tablet 00:00: mouth at [place] 00 bedtime. Medical Branch methocarbam 2021-07 Yes [id number] 500mg Take 1 [facility] oL 500 mg 0-06 tablet by ity o f tablet 00:00: mouth 4 (four) Medical times Branch daily as needed (muscle spasms). ibuprofen 2021-07 Yes [id number] 600mg Take 1 [facility] 600 mg 0-06 tablet by ity of tablet 00:00: mouth [place] 00 every 6 Medical (six) Branch hours as needed for Pain (scale 4-6). acetaminoph 2021-07 Yes [id number] 1000mg Take 2 [facility] en 500 mg 0-06 tablets by ity of tablet 00:00: mouth [place] 00 every 8 Medical (eight) Branch hours as needed for Pain. traZODone 2021-07 Yes 50mg Take 1 [facility] 50 mg 0-06 tablet by ity of tablet 00:00: mouth at [place] 00 bedtime. Medical Branch methocarbam 2021-07 Yes [id number] 500mg Take 1 [facility] oL 500 mg 0-06 tablet by ity o f tablet 00:00: mouth (four) Medical times Branch daily as needed (muscle spasms). ibuprofen 2021-07 Yes [id number] 600mg Take 1 [facility] 600 mg 0-06 tablet by ity of tablet 00:00: mouth [place] 00 every 6 Medical (six) Branch hours as needed for Pain (scale 4-6). acetaminoph 2021-07 Yes [id number] 1000mg Take 2 [facility] en 500 mg 0-06 tablets by ity of tablet 00:00: mouth [place] 00 every 8 Medical (eight) Branch hours as needed for Pain. traZODone 2021-07 Yes 50mg Take 1 [facility] 50 mg 0-06 tablet by ity of tablet 00:00: mouth at [place] 00 bedtime. Medical Branch methocarbam 2021-07 Yes [id number] 500mg Take 1 [facility] oL 500 mg 0-06 tablet by ity o f tablet 00:00: mouth 00 (four) Medical times Branch daily as needed (muscle spasms). ibuprofen 2021-07 Yes [id number] 600mg Take 1 [facility] 600 mg 0-06 tablet by ity of tablet 00:00: mouth [place] 00 every 6 Medical (six) Branch hours as needed for Pain (scale 4-6). acetaminoph 2021-07 Yes [id number] 1000mg Take 2 [facility] en 500 mg 0-06 tablets by ity of tablet 00:00: mouth [place] 00 every 8 Medical (eight) Branch hours as needed for Pain. traZODone 2021-07 Yes 50mg Take 1 [facility] 50 mg 0-06 tablet by ity of tablet 00:00: mouth at [place] 00 bedtime. Medical Branch methocarbam 2021-07 Yes [id number] 500mg Take 1 [facility] oL 500 mg 0-06 tablet by ity o f tablet 00:00: mouth 4 [place] 00 (four) Medical times Branch daily as needed (muscle spasms). ibuprofen 2021-07 Yes [id number] 600mg Take 1 [facility] 600 mg 0-06 tablet by ity of tablet 00:00: mouth [place] 00 every 6 Medical (six) Branch hours as needed for Pain (scale 4-6). acetaminoph 2021-07 Yes [id number] 1000mg Take 2 [facility] en 500 mg 0-06 tablets by ity of tablet 00:00: mouth [place] 00 every 8 Medical (eight) Branch hours as needed for Pain. traZODone 2021-07 Yes 50mg Take 1 [facility] 50 mg 0-06 tablet by [facility] of tablet 00:00: mouth at [place] 00 bedtime. Medical Branch methocarbam 2021-07 Yes [id number] 500mg Take 1 [facility] oL 500 mg 0-06 tablet by ity o f tablet 00:00: mouth 4 [place] 00 (four) Medical times Branch daily as needed (muscle spasms). ibuprofen 2021-07 Yes [id number] 600mg Take 1 [facility] 600 mg 0-06 tablet by ity of tablet 00:00: mouth [place] 00 every 6 Medical (six) Branch hours as needed for Pain (scale 4-6). acetaminoph 2021-07 Yes [id number] 1000mg Take 2 [facility] en 500 mg 0-06 tablets by ity of tablet 00:00: mouth [place] 00 every 8 Medical (eight) Branch hours as needed for Pain. traZODone 2021-07 Yes 50mg Take 1 [facility] 50 mg 0-06 tablet by [facility]y of tablet 00:00: mouth at [place] 00 bedtime. Medical Branch methocarbam 2021-07 Yes [id number] 500mg Take 1 [facility] oL 500 mg 0-06 tablet by ity o f tablet 00:00: mouth 4 00 (four) Medical times Branch daily as needed (muscle spasms). ibuprofen 2021-07 Yes [id number] 600mg Take 1 [facility] 600 mg 0-06 tablet by ity of tablet 00:00: mouth [place] 00 every 6 Medical (six) Branch hours as needed for Pain (scale 4-6). acetaminoph 2021-07 Yes [id number] 1000mg Take 2 [facility] en 500 mg 0-06 tablets by ity of tablet 00:00: mouth [place] 00 every 8 Medical (eight) Branch hours as needed for Pain. traZODone 2021-07 Yes 50mg Take 1 [facility] 50 mg 0-06 tablet by [facility]y of tablet 00:00: mouth at [place] 00 bedtime. Medical Branch methocarbam 2021-07 Yes [id number] 500mg Take 1 [facility] oL 500 mg 0-06 tablet by ity o f tablet 00:00: mouth (four) Medical times Branch daily as needed (muscle spasms). ibuprofen 2021-07 Yes [id number] 600mg Take 1 [facility] 600 mg 0-06 tablet by ity of tablet 00:00: mouth [place] 00 every 6 Medical (six) Branch hours as needed for Pain (scale 4-6). acetaminoph 2021-07 Yes [id number] 1000mg Take 2 [facility] en 500 mg 0-06 tablets by ity of tablet 00:00: mouth [place] 00 every 8 Medical (eight) Branch hours as needed for Pain. traZODone 2021-07 Yes 50mg Take 1 [facility] 50 mg 0-06 tablet by ity of tablet 00:00: mouth at [place] 00 bedtime. Medical Branch methocarbam 2021-07 Yes [id number] 500mg Take 1 [facility] oL 500 mg 0-06 tablet by ity o f tablet 00:00: mouth 00 (four) Medical times Branch daily as needed (muscle spasms). ibuprofen 2021-07 Yes [id number] 600mg Take 1 [facility] 600 mg 0-06 tablet by ity of tablet 00:00: mouth [place] 00 every 6 Medical (six) Branch hours as needed for Pain (scale 4-6). acetaminoph 2021-07 Yes [id number] 1000mg Take 2 [facility] en 500 mg 0-06 tablets by ity of tablet 00:00: mouth [place] 00 every 8 Medical (eight) Branch hours as needed for Pain. traZODone 2021-07 Yes 50mg Take 1 [facility] 50 mg 0-06 tablet by ity of tablet 00:00: mouth at [place] 00 bedtime. Medical Branch methocarbam 2021-07 Yes [id number] 500mg Take 1 [facility] oL 500 mg 0-06 tablet by ity o f tablet 00:00: mouth 4 (four) Medical times Branch daily as needed (muscle spasms). ibuprofen 2021-07 Yes [id number] 600mg Take 1 [facility] 600 mg 0-06 tablet by ity of tablet 00:00: mouth [place] 00 every 6 Medical (six) Branch hours as needed for Pain (scale 4-6). acetaminoph 2021-07 Yes [id number] 1000mg Take 2 [facility] en 500 mg 0-06 tablets by ity of tablet 00:00: mouth 00 every 8 Medical (eight) Branch hours as needed for Pain. traZODone 2021-07 Yes 50mg Take 1 [facility] 50 mg 0-06 tablet by ity of tablet 00:00: mouth at 00 bedtime. Medical Branch methocarbam 2021-07 Yes [id number] 500mg Take 1 [facility] oL 500 mg 0-06 tablet by ity o f tablet 00:00: mouth (four) Medical times Branch daily as needed (muscle spasms). ibuprofen 2021-07 Yes [id number] 600mg Take 1 [facility] 600 mg 0-06 tablet by ity of tablet 00:00: mouth [place] 00 every 6 Medical (six) Branch hours as needed for Pain (scale 4-6). acetaminoph 2021-07 Yes [id number] 1000mg Take 2 [facility] en 500 mg 0-06 tablets by ity of tablet 00:00: mouth [place] 00 every 8 Medical (eight) Branch hours as needed for Pain. traZODone 2021-07 Yes 50mg Take 1 [facility] 50 mg 0-06 tablet by ity of tablet 00:00: mouth at [place] 00 bedtime. Medical Branch methocarbam 2021-07 Yes [id number] 500mg Take 1 [facility] oL 500 mg 0-06 tablet by ity o f tablet 00:00: mouth (four) Medical times Branch daily as needed (muscle spasms). ibuprofen 2021-07 Yes [id number] 600mg Take 1 [facility] 600 mg 0-06 tablet by ity of tablet 00:00: mouth [place] 00 every 6 Medical (six) Branch hours as needed for Pain (scale 4-6). acetaminoph 2021-07 Yes [id number] 1000mg Take 2 [facility] en 500 mg 0-06 tablets by ity of tablet 00:00: mouth [place] 00 every 8 Medical (eight) Branch hours as needed for Pain. traZODone 2021-07 Yes 50mg Take 1 [facility] 50 mg 0-06 tablet by ity of tablet 00:00: mouth at [place] 00 bedtime. Medical Branch methocarbam 2021-07 Yes [id number] 500mg Take 1 [facility] oL 500 mg 0-06 tablet by ity o f tablet 00:00: mouth 4 [place] 00 (four) Medical times Branch daily as needed (muscle spasms). ibuprofen 2021-07 Yes [id number] 600mg Take 1 [facility] 600 mg 0-06 tablet by ity of tablet 00:00: mouth [place] 00 every 6 Medical (six) Branch hours as needed for Pain (scale 4-6). acetaminoph 2021-07 Yes [id number] 1000mg Take 2 [facility] en 500 mg 0-06 tablets by ity of tablet 00:00: mouth [place] 00 every 8 Medical (eight) Branch hours as needed for Pain. traZODone 2021-07 Yes 50mg Take 1 [facility] 50 mg 0-06 tablet by ity of tablet 00:00: mouth at [place] 00 bedtime. Medical Branch methocarbam 2021-07 Yes [id number] 500mg Take 1 [facility] oL 500 mg 0-06 tablet by ity o f tablet 00:00: mouth 4 [place] 00 (four) Medical times Branch daily as needed (muscle spasms). ibuprofen 2021-07 Yes [id number] 600mg Take 1 [facility] 600 mg 0-06 tablet by ity of tablet 00:00: mouth [place] 00 every 6 Medical (six) Branch hours as needed for Pain (scale 4-6). acetaminoph 2021-07 No [id number] 1000mg Take 2 [facility] en 500 mg 0-06 11-29 tablets by ity of tablet 00:00: 00:00 mouth [place] 00 :00 every 8 Medical (eight) Branch hours as needed for Pain. traZODone 2021-07 No 50mg Take 1 [facility] 50 mg 0-06 -29 tablet by ity of tablet 00:00: 00:00 mouth at [place] 00 :00 bedtime. Medical Branch methocarbam 2021-07 No [id number] 500mg Take 1 [facility] oL 500 mg 0-06 -29 tablet by ity of tablet 00:00: 00:00 mouth 4 [place] 00 :00 (four) Medical times Branch daily as needed (muscle spasms). ibuprofen 2021-07- No [id number] 600mg Take 1 [facility] 600 mg 0-06 -29 tablet by ity of tablet 00:00: 00:00 mouth [place] 00 :00 every 6 Medical (six) Branch hours as needed for Pain (scale 4-6). acetaminoph 2021-07 No [id number] 1000mg Take 2 [facility] en 500 mg 0-06 -29 tablets by ity of tablet 00:00: 00:00 mouth [place] 00 :00 every 8 Medical (eight) Branch hours as needed for Pain. traZODone 2021-07 No 50mg Take 1 [facility] 50 mg 0-06 -29 tablet by ity of tablet 00:00: 00:00 mouth at [place] 00 :00 bedtime. Medical Branch methocarbam 2021-07 No [id number] 500mg Take 1 [facility] oL 500 mg 0-06 -29 tablet by ity of tablet 00:00: 00:00 mouth 4 [place] 00 :00 (four) Medical times Branch daily as needed (muscle spasms). ibuprofen 2021-07- No [id number] 600mg Take 1 [facility] 600 mg 0-06 -29 tablet by ity of tablet 00:00: 00:00 mouth [place] 00 :00 every 6 Medical (six) Branch hours as needed for Pain (scale 4-6). acetaminoph 2021-07- No [id number] 1000mg Take 2 [facility] en 500 mg 0-06 11-29 tablets by ity of tablet 00:00: 00:00 mouth [place] 00 :00 every 8 Medical (eight) Branch hours as needed for Pain. traZODone 2021-07- No 50mg Take 1 [facility] 50 mg 0-06 11-29 tablet by ity of tablet 00:00: 00:00 mouth at [place] 00 :00 bedtime. Medical Branch methocarbam 2021-07- No [id number] 500mg Take 1 [facility] oL 500 mg 005-31 tablet by ity of tablet 00:00: 00:00 mouth 4 [place] 00 :00 (four) Medical times Branch daily as needed (muscle spasms). ibuprofen 2021-07- No [id number] 600mg Take 1 [facility] 600 mg 005-31 tablet by ity of tablet 00:00: 00:00 mouth [place] 00 :00 every 6 Medical (six) Branch hours as needed for Pain (scale 4-6). acetaminoph 2021-07- No [id number] 1000mg Take 2 [facility] en 500 mg 005-31 tablets by ity of tablet 00:00: 00:00 mouth [place] 00 :00 every 8 Medical (eight) Branch hours as needed for Pain. traZODone 2021-07- No 50mg Take 1 [facility] 50 mg 005-31 tablet by ity of tablet 00:00: 00:00 mouth at [place] 00 :00 bedtime. Medical Branch methocarbam 2021-07- No [id number] 500mg Take 1 [facility] oL 500 mg 005-31 tablet by ity of tablet 00:00: 00:00 mouth 4 [place] 00 :00 (four) Medical times Branch daily as needed (muscle spasms). ibuprofen 2021-07- No [id number] 600mg Take 1 [facility] 600 mg 005-31 tablet by ity of tablet 00:00: 00:00 mouth [place] 00 :00 every 6 Medical (six) Branch hours as needed for Pain (scale 4-6). atomoxetine 2021-07 Yes 40mg 40 mg, Univ ers (STRATTERA) 0-05 Oral, ity of capsule 40 16:45: DAILY, [place] mg 00 First dose Medical on Mon Branch 04/06/22 at 1145, Until Discontinu ed, Routine
membership assistant approving Non-formul freddie medication : PERSON, KEAGAN
Reason for non-formul freddie use: PATIENT CURRENTLY TAKING NONFORMULA RY PRODUCT lamoTRIgine 2021-07 Yes 25mg 25 mg, Univ ers (LAMICTAL) 0-05 Oral, ity of tablet 25 16:45: DAILY, [place] mg 00 First dose Medical on Mon [place] 04/06/22 at 1145, Until Discontinu ed, Routine traMADoL 2021-07 Yes 50mg 50 mg, Univers (ULTRAM) 0-05 Oral, Q8H, ity o f tablet 50 16:45: First dose [place] mg 00 on Mon [facility] 04/06/22 at Branch 1145, Until Discontinu ed, Routine oxyCODONE 2021-07 Yes 5mg 5 mg, Univers immediate 0-05 Oral, ity of release 16:31: Q4HPRN, [place] tablet 5 mg 53 Starting Medi torito on Mon [place] 04/06/22 at 1131, Until Discontinu ed, Routine, Pain (scale 7-10)<b r>membership assistant approving Restricted medication : KEAGAN LUO celecoxib 2021-07 Yes 100mg 100 mg, Univ ers (CELEBREX) 0-05 Oral, BID ity of capsule 100 15:15: [place]ALS, [place] mg 00 First dose Medical on [facility] 04/06/22 at 1015, Until Discontinu ed, Routine acetaminoph 2021-07 Yes 1000mg 1,000 mg, Univers en 0-05 Oral, Q8H, ity of (TYLENOL) 15:15: First dose [place] tablet 00 on Mon [facility] 1,000 mg 04/06/22 at [facility] h 1015, Until Discontinu ed, Routine tamsulosin 2021-07 Yes .4mg 0.4 mg, Univ ers (FLOMAX) 0-05 Oral, ity of capsule 0.4 14:00: DAILY, [place] 00 First dose Medical on [facility] 04/06/22 at 0900, Until Discontinu ed, Routine methocarbam 2021-07 Yes 1000mg 1,000 mg, Univers oL 0-05 Oral, QID, ity of (ROBAXIN) 13:00: First dose [place] tablet 00 on Mon Medical 1,000 mg 04/06/22 at [facility] h 0800, Until Discontinu ed, Routine enoxaparin 2021-07 Yes 30mg 30 mg, Unive rs (LOVENOX) 0-05 Subcutaneo ity of injection 01:00: us, Q12H, [place] 30 mg 00 First dose Medical on [facility] 04/05/22 at 2000, Until Discontinu ed, Routine methocarbam 2021-07 No 1000mg 1,000 mg, Univers oL 0-04-06 Intravenou ity of (ROBAXIN) 19:00: 11:05 s, Q8H, [place] injection 00 :13 First dose Medi [place] 1,000 mg on [facility] 04/05/22 at 1400, Until Discontinu ed, Routine acetaminoph 2021-07 No 1000mg 1,000 mg, Univers en ADULT 0-04-06 IV ity of (OFIRMEV) 19:00: 14:37 Infusion, [...] 17 g 00 First dose Medical on [facility] 04/05/22 at 0915, Until Discontinu ed, Routine ibuprofen 2021-07 No 600mg 600 mg, Uni vers (IBU) 0-04 10-04 Oral, TID ity of tablet 600 13:00: 14:14 MEALS, [place] mg 00 :08 First dose Medical on [facility] 04/05/22 at 0800, Until Discontinu ed, Routine acetaminoph 2021-07 No 650mg 650 mg, U nivers en 0-04 10-04 Oral, Q6H, ity of (TYLENOL) 05:00: 15:12 First dose [place] tablet 650 00 :14 on Tue Medical mg 04/05/22 at Branch 0000, Until Discontinu ed, Routine methocarbam 2021-07 No 500mg 500 mg, U nivers oL 0-04 10-04 Oral, QID, ity of (ROBAXIN) 01:00: 15:09 First dose [place] tablet 500 00 :36 on Mon Medical mg 10/3/22 at Branch 2000, Until Discontinu ed, Routine morpHINE (2 2021-07- No 2mg 2 mg, Slow Univers mg/mL) 0-03 10- IV Push, ity of injection 2 23:22: 14:14 Q4HPRN, [place] mg 51 :08 Starting Medical on Mon Branch 04/04/22 at 1822, Until Mon04/05/22 at 0914, Routine, Pain (scale 7-10) HYDROcodone 2021-07- No 1{tbl} 1 tablet, Univers -acetaminop 0-03 10-04 Oral, ity of hen (NORCO 23:22: 14:14 Q6HPRN, [place] 5) 5-325 mg 51 :08 Starting Medi torito tablet 1 on Mon Branch tablet 04/04/22 at 1822, Until Mon04/05/22 at 0914, Routine, Pain (scale 4-6) FENTanyl PF 2021-07 No 50ug 50 mcg, Un [facility]leen (SUBLIMAZE 0- 10- Slow IV ity o f (PF)) 22:00: 21:05 Push, [place] injection 00 :00 ONCE, 1 Medical 50 mcg dose, On [facility] 04/04/22 at 1700, Routine FENTanyl PF 2021-07- No 50ug 50 mcg, Un [place] (SUBLIMAZE 0- 10- Slow IV ity o f (PF)) 20:30: 19:32 Push, [place] injection 00 :00 ONCE, 1 Medical 50 mcg dose, On Branch [facility] 04/04/22 at 1530, Routine ondansetron 2021-07- No 4mg 4 mg, Slow Univers (ZOFRAN 0- 10- IV Push, ity of (PF)) 19:45: 19:32 ONCE, 1 [place] injection 4 00 :00 dose, On Medi torito mg [facility] 04/04/22 at 1445, ARLEN iopamidol 2021-07- No [id number] 80mL 80 mL, Univers (ISOVUE 0- 10 Intravenou ity o f 370-500 mL) 19:00: 18:49 s, ONCE, 1 [place] injection 00 :00 dose, On Medica l 80 mL [facility] 04/04/22 at 1400, Routine NaCl 0.9% 2021- No 1000mL at 999 [...] 03/31/22 at 2315, ARLEN ARIPiprazol 0 Yes [id number] 300mg 300 mg by Univers e (ABILIFY 9-15 Intramuscu ity of MAINTENA) 00:00: lar route [place] 300 mg sers 00 once every Me dical month. Branch ARIPiprazol 0 Yes 300mg 300 mg by Univers e (ABILIFY 9-15 Intramuscu ity of MAINTENA) 00:00: lar route [place] 300 mg sers 00 once every Me dical month. Branch ARIPiprazol 2021-0 Yes [id number] 300mg 300 mg by Univers e (ABILIFY 9-15 Intramuscu ity of MAINTENA) 00:00: lar route [place] 300 mg sers 00 once every Me dical month. Branch ARIPiprazol 2021-0 Yes 300mg 300 mg by Univers e (ABILIFY 9-15 Intramuscu ity of MAINTENA) 00:00: lar route [place] 300 mg sers 00 once every Me dical month. Branch ARIPiprazol 2021-0 Yes [id number] 300mg 300 mg by Univers e (ABILIFY 9-15 Intramuscu ity of MAINTENA) 00:00: lar route [place] 300 mg sers 00 once every Me dical month. Branch ARIPiprazol 2021-0 Yes 300mg 300 mg by Univers e (ABILIFY 9-15 Intramuscu ity of MAINTENA) 00:00: lar route [place] 300 mg sers 00 once every Me dical month. Branch ARIPiprazol 2022-0 Yes [id number] 300mg 300 mg by Univers e (ABILIFY 9-15 Intramuscu ity of MAINTENA) 00:00: lar route [place] 300 mg sers 00 once every Me dical month. Branch ARIPiprazol 2-0 Yes 300mg 300 mg by Univers e (ABILIFY 9-15 Intramuscu ity of MAINTENA) 00:00: lar route [place] 300 mg sers 00 once every Me dical month. Branch ARIPiprazol 2-0 Yes [id number] 300mg 300 mg by Univers e (ABILIFY 9-15 Intramuscu ity of MAINTENA) 00:00: lar route [place] 300 mg sers 00 once every Me dical month. Branch ARIPiprazol 2-0 Yes 300mg 300 mg by Univers e (ABILIFY 9-15 Intramuscu ity of MAINTENA) 00:00: lar route [place] 300 mg sers 00 once every Me dical month. Branch ARIPiprazol 2-0 Yes [id number] 300mg 300 mg by Univers e (ABILIFY 9-15 Intramuscu ity of MAINTENA) 00:00: lar route [place] 300 mg sers 00 once every Me dical month. Branch ARIPiprazol 2-0 Yes 300mg 300 mg by Univers e (ABILIFY 9-15 Intramuscu ity of MAINTENA) 00:00: lar route [place] 300 mg sers 00 once every Me dical month. Branch ARIPiprazol 2-0 Yes [id number] 300mg 300 mg by Univers e (ABILIFY 9-15 Intramuscu ity of MAINTENA) 00:00: lar route [place] 300 mg sers 00 once every Me dical month. Branch ARIPiprazol 2-0 Yes 300mg 300 mg by Univers e (ABILIFY 9-15 Intramuscu ity of MAINTENA) 00:00: lar route [place] 300 mg sers 00 once every Me dical month. Branch ARIPiprazol 2-0 Yes [id number] 300mg 300 mg by Univers e (ABILIFY 9-15 Intramuscu ity of MAINTENA) 00:00: lar route [place] 300 mg sers 00 once every Me dical month. Branch ARIPiprazol 2021-0 Yes [id number] 300mg 300 mg by Univers e (ABILIFY 9-15 Intramuscu ity of MAINTENA) 00:00: lar route [place] 300 mg sers 00 once every Me dical month. Branch ARIPiprazol 2021-0 Yes [id number] 300mg 300 mg by Univers e (ABILIFY 9-15 Intramuscu ity of MAINTENA) 00:00: lar route [place] 300 mg sers 00 once every Me dical month. Branch ARIPiprazol 2021-0 Yes [id number] 300mg 300 mg by Univers e (ABILIFY 9-15 Intramuscu ity of MAINTENA) 00:00: lar route [place] 300 mg sers 00 once every Me dical month. Branch ARIPiprazol 2021-0 Yes [id number] 300mg 300 mg by Univers e (ABILIFY 9-15 Intramuscu ity of MAINTENA) 00:00: lar route [place] 300 mg sers 00 once every Me dical month. Branch ARIPiprazol 2021-0 Yes [id number] 300mg 300 mg by Univers e (ABILIFY 9-15 Intramuscu ity of MAINTENA) 00:00: lar route [place] 300 mg sers 00 once every Me dical month. Branch ARIPiprazol 2021-0 2021- No 300mg 300 mg by Univers e (ABILIFY 9-15 10-06 Intramuscu it y of MAINTENA) 00:00: 00:00 lar route [place] 300 mg sers 00 :00 once every Me dical month. Branch ARIPiprazol 2021-0 2021- No 300mg 300 mg by Univers e (ABILIFY 9-15 10-06 Intramuscu it y of MAINTENA) 00:00: 00:00 lar route [place] 300 mg sers 00 :00 once every Me dical month. Branch ARIPiprazol 2021-0 2021- No 300mg 300 mg by Univers [...] No 300mg 300 mg by Univers e (LIY 03-17 Intramuscu it y of MAINTENA) 00:00: [...] Me dical month. Branch ARIPiprazol 2021- No [id number] 10mg Take 1 U nivers e 10 mg 9-08 10-09 tablet by ity of tablet 00:00: 04:59 mouth in [place] 00 :00 [facility] for 30 days. ARIPiprazol 2021- No [id number] 10mg Take 1 U nivers e 10 mg 9-08 10-09 tablet by ity of tablet 00:00: 04:59 mouth in [place] 00 :00 [facility] for 30 days. ARIPiprazol 2021- No [id number] 10mg Take 1 U nivers e 10 mg 9-08 10-09 tablet by ity of tablet 00:00: 04:59 mouth in [place] 00 :00 [facility] for 30 days. ARIPiprazol 2021- No [id number] 10mg Take 1 U nivers e 10 mg 9-08 10-09 tablet by ity of tablet 00:00: 04:59 mouth in [place] 00 :00 [facility] for 30 days. ARIPiprazol 2021- No [id number] 10mg Take 1 U nivers e 10 mg 9-08 10-09 tablet by ity of tablet 00:00: 04:59 mouth in [place] 00 :00 [facility] for 30 days. ARIPiprazol 2021- No [id number] 10mg Take 1 U nivers e 10 mg 9-08 10-09 tablet by ity of tablet 00:00: 04:59 mouth in [place] 00 :00 [facility] for 30 days. ARIPiprazol 2021- No [id number] 10mg Take 1 U nivers e 10 mg 9-08 10-09 tablet by ity of tablet 00:00: 04:59 mouth in [place] 00 :00 [facility] for 30 days. ARIPiprazol 2021-2021- No [id number] 10mg Take 1 U nivers e 10 mg 9-08 10-09 tablet by ity of tablet 00:00: 04:59 mouth in [place] 00 :00 [facility] for 30 days. ARIPiprazol 2021-2021- No [id number] 10mg Take 1 U nivers e 10 mg 9-08 10-09 tablet by ity of tablet 00:00: 04:59 mouth in [place] 00 :00 the Medical morning Branch for 30 days. ARIPiprazol 2021-2021- No [id number] 10mg Take 1 U nivers e 10 mg 9-08 10-09 tablet by ity of tablet 00:00: 04:59 mouth in [place] 00 :00 the Medical morning Branch for 30 days. ARIPiprazol 2021-2021- No [id number] 10mg Take 1 U nivers e 10 mg 9-08 10-09 tablet by ity of tablet 00:00: 04:59 mouth in [place] 00 :00 the [facility] morning Branch for 30 days. ARIPiprazol 2021-2021- No [id number] 10mg Take 1 U nivers e 10 mg 9-08 10-09 tablet by ity of tablet 00:00: 04:59 mouth in [place] 00 :00 the [facility] morning [place] for 30 days. ARIPiprazol 2021-2021- No [id number] 10mg Take 1 U nivers e 10 mg 9-08 10-09 tablet by ity of tablet 00:00: 04:59 mouth in [place] 00 :00 the [facility] for 30 days. ARIPiprazol 2021-2021- No [id number] 10mg Take 1 U nivers e 10 mg 9-08 10-09 tablet by ity of tablet 00:00: 04:59 mouth in [place] 00 :00 the [facility] morning [place] for 30 days. ARIPiprazol 2021-2021- No [id number] 10mg Take 1 U nivers e 10 mg 9-08 10-09 tablet by ity of tablet 00:00: 04:59 mouth in [place] 00 :00 the [facility] for 30 days. ARIPiprazol 2021-2021- No [id number] 10mg Take 1 U nivers e 10 mg 9-08 10-09 tablet by ity of tablet 00:00: 04:59 mouth in [place] 00 :00 the [facility] for 30 days. ARIPiprazol 2021-2021- No [id number] 10mg Take 1 U nivers e 10 mg 9-08 10-09 tablet by ity of tablet 00:00: 04:59 mouth in [place] 00 :00 the [facility] for 30 days. ARIPiprazol 2021- No [id number] 10mg Take 1 U nivers e 10 mg 9-08 10-09 tablet by ity of tablet 00:00: 04:59 mouth in [place] 00 :00 the [facility] for 30 days. ARIPiprazol 2021-2021- No [id number] 10mg Take 1 U nivers e 10 mg 9-08 10-09 tablet by ity of tablet 00:00: 04:59 mouth in [place] 00 :00 the [facility] for 30 days. ARIPiprazol 2021-2021- No [id number] 10mg Take 1 U nivers e 10 mg 9-08 10-09 tablet by ity of tablet 00:00: 04:59 mouth in [place] 00 :00 the [facility] for 30 days. ARIPiprazol 2021- No [id number] 10mg Take 1 U nivers e 10 mg 9-08 10-09 tablet by ity of tablet 00:00: 04:59 mouth in [place] 00 :00 [facility] for 30 days. ARIPiprazol 2021-2021- No [id number] 10mg Take 1 U nivers e 10 mg 9-08 10-09 tablet by ity of tablet 00:00: 04:59 mouth in [place] 00 :00 [facility] for 30 days. ARIPiprazol 2021-2021- No [id number] 10mg Take 1 U nivers e 10 mg 9-08 10-09 tablet by ity of tablet 00:00: 04:59 mouth in [place] 00 :00 [facility] for 30 days. ARIPiprazol 2021-2021- No [id number] 10mg Take 1 U nivers e 10 mg 9-08 10-09 tablet by ity of tablet 00:00: 04:59 mouth in [place] 00 :00 [facility] for 30 days. ARIPiprazol 2021-2021- No [id number] 10mg Take 1 U nivers e 10 mg 9-08 10-09 tablet by ity of tablet 00:00: 04:59 mouth in [place] 00 :00 the [facility] for 30 days. ARIPiprazol 2021-2021- No [id number] 10mg Take 1 U nivers e 10 mg 9-08 10-09 tablet by ity of tablet 00:00: 04:59 mouth in [place] 00 :00 the Medical morning Branch for 30 days. ARIPiprazol 2021-2021- No [id number] 10mg Take 1 U nivers e 10 mg 03-10- tablet by ity of tablet 00:00: 04:59 mouth in [place] 00 :00 the Medical morning Branch for 30 days. ARIPiprazol 2021-2021- No [id number] 10mg Take 1 U nivers e 10 mg 03-10 tablet by ity of tablet 00:00: 04:59 mouth in [place] 00 :00 the Medical morning Branch for 30 days. ARIPiprazol 2021-2021- No [id number] 300mg 300 mg by Univers e (ABILIFY 03-09 Intramuscu it y of MAINTENA) 00:00: 05:59 lar route [place] 300 mg sers 00 :00 once every Me dical month for Branch 90 days. ARIPiprazol 2021-2021- No [id number] 300mg 300 mg by Univers e (ABILIFY 03-09 Intramuscu it y of MAINTENA) 00:00: 00:00 lar route [place] 300 mg sers 00 :00 once every Me dical month for Branch 90 days. ARIPiprazol 2021-2021- No [id number] 300mg 300 mg by Univers e (ABILIFY 03-09 Intramuscu it y of MAINTENA) 00:00: 00:00 lar route [place] 300 mg sers 00 :00 once every Me dical month for Branch 90 days. ARIPiprazol 2021- No [id number] 300mg 300 mg by Univers e (ABILIFY 03-09 Intramuscu it y of MAINTENA) 00:00: 00:00 lar route [place] 300 mg sers 00 :00 once every Me dical month for Branch 90 days. ARIPiprazol 2021-2021- No [id number] 300mg 300 mg by Univers e (ABILIFY 03-09 Intramuscu it y of MAINTENA) 00:00: 00:00 lar route [place] 300 mg sers 00 :00 once every Me dical month for Branch 90 days. ARIPiprazol 2021- No [id number] 300mg 300 mg by Univers e (SCOTT 03-09 Intramuscu it y [facility]) 00:00: 00:00 lar route [place] 300 mg sers 00 :00 once every Me dical month for Branch 90 days. QUEtiapine 2021- No [id number] 50mg Take 1 Un [place] 50 mg 7-18 -08 tablet by ity of tablet 00:00: 00:00 mouth in [place] 00 :00 the Medical morning Branch and 1 tablet in the evening. Do all this for 60 days. QUEtiapine 2021- No [id number] 50mg Take 1 [facility] [place] 50 mg 7-18 -08 tablet by ity of tablet 00:00: 00:00 mouth in [place] 00 :00 the Medical morning Branch and 1 tablet in the evening. Do all this for 60 days. QUEtiapine 2021- No [id number] 50mg Take 1 [facility] [place] 50 mg 18 - tablet by ity of tablet 00:00: 00:00 mouth in [place] 00 :00 the Medical morning Branch and 1 tablet in the evening. Do all this for 60 days. QUEtiapine 2021- No [id number] 50mg Take 1 [facility] [place] 50 mg 18 -08 tablet by ity of tablet 00:00: 00:00 mouth in [place] 00 :00 the Medical morning Branch and 1 tablet in the evening. Do all this for 60 days. QUEtiapine 2021- No [id number] 50mg Take 1 [facility] [place] 50 mg -18 -08 tablet by ity of tablet 00:00: 00:00 mouth in [place] 00 :00 the Medical morning Branch and 1 tablet in the evening. Do all this for 60 days. lithium 2021- No [id number] 300mg Take 1 [facility] nivers carbonate 12-07 tablet by ity of CR 300 mg 00:00: 04:59 mouth at [place] as SR tablet 00 :00 bedtime Medical for 90 Branch days. lithium 2021- No [id number] 450mg Take 1 [facility] nivers carbonate 12-07 tablet by ity of CR 450 mg 00:00: 04:59 mouth [place] SR tablet 00 :00 every Medical morning Branch for 90 days. lithium No [id number] 300mg Take 1 [facility] nivers carbonate 12-07 tablet by ity of CR 300 mg 00:00: 04:59 mouth at [place] SR tablet 00 :00 bedtime Medical for 90 Branch days. lithium No [id number] 450mg Take 1 [facility] nivers carbonate 12-07 tablet by ity of CR 450 mg 00:00: 04:59 mouth [place] SR tablet 00 :00 every Medical morning Branch for 90 days. lithium No [id number] 300mg Take 1 [facility] nivers carbonate 12-07 tablet by ity of CR 300 mg 00:00: 04:59 mouth at [place] SR tablet 00 :00 bedtime Medical for 90 Branch days. lithium No [id number] 450mg Take 1 [facility] nivers carbonate 12-07 tablet by ity of CR 450 mg 00:00: 04:59 mouth [place] SR tablet 00 :00 every Medical morning Branch for 90 days. lithium No [id number] 300mg Take 1 [facility] nivers carbonate 12-07 tablet by ity of CR 300 mg 00:00: 04:59 mouth at [place] [facility] SR tablet 00 :00 bedtime Medical for 90 Branch days. lithium 2021- No [id number] 450mg Take 1 [facility] nivers carbonate 12-07 tablet by ity of CR 450 mg 00:00: 04:59 mouth [place] SR tablet 00 :00 every Medical morning Branch for 90 days. lithium No [id number] 300mg Take 1 [facility] nivers carbonate 12-07 tablet by ity of CR 300 mg 00:00: 04:59 mouth at [place] as SR tablet 00 :00 bedtime Medical for 90 Branch days. lithium 2021- No [id number] 450mg Take 1 [facility] nivers carbonate 12-07 tablet by ity of CR 450 mg 00:00: 04:59 mouth [place] SR tablet 00 :00 every Medical morning Branch for 90 days. miSOPROStoL 2022-0 Yes [id number] 200ug Take 1 [facility] 200 mcg 4-29 tablet by ity of tablet 00:00: mouth [place] SEE-INSTRU Medical CTIONS. Branch Take one tab the night before and one tab the morning of procedure miSOPROStoL 2021-0 Yes [id number] 200ug Take 1 [facility] 200 mcg 4-29 tablet by ity of tablet 00:00: mouth [place] SEE-INSTRU Medical CTIONS. Branch Take one tab the night before and one tab the morning of procedure miSOPROStoL 2021-0 Yes [id number] 200ug Take 1 [facility] 200 mcg 4-29 tablet by ity of tablet 00:00: mouth [place] SEE-INSTRU Medical CTIONS. Branch Take one tab the night before and one tab the morning of procedure miSOPROStoL 2021-0 Yes [id number] 200ug Take 1 [facility] 200 mcg 4-29 tablet by ity of tablet 00:00: mouth [place] SEE-INSTRU Medical CTIONS. Branch Take one tab the night before and one tab the morning of procedure miSOPROStoL 2021-0 Yes [id number] 200ug Take 1 [facility] 200 mcg 4-29 tablet by ity of tablet 00:00: mouth [place] SEE-INSTRU Medical CTIONS. Branch Take one tab the night before and one tab the morning of procedure miSOPROStoL 2021-0 Yes [id number] 200ug Take 1 [facility] 200 mcg 4-29 tablet by ity of tablet 00:00: mouth [place] SEE-INSTRU Medical CTIONS. Branch Take one tab the night before and one tab the morning of procedure miSOPROStoL 2021-0 Yes [id number] 200ug Take 1 [facility] 200 mcg 4-29 tablet by ity of tablet 00:00: mouth [place] SEE-INSTRU Medical CTIONS. Branch Take one tab the night before and one tab the morning of procedure miSOPROStoL 2021-0 Yes [id number] 200ug Take 1 [facility] 200 mcg 4-29 tablet by ity of tablet 00:00: mouth [place] SEE-INSTRU Medical CTIONS. Branch Take one tab the night before and one tab the morning of procedure miSOPROStoL 2-0 Yes [id number] 200ug Take 1 [facility] 200 mcg 4-29 tablet by ity of tablet 00:00: mouth [place] SEE-INSTRU Medical CTIONS. Branch Take one tab the night before and one tab the morning of procedure miSOPROStoL 2021- No [id number] 200ug Take 1 [facility] 200 mcg 4-29 10-06 tablet by ity of tablet 00:00: 00:00 mouth [place] 00 :00 SEE-INSTRU Medical CTIONS. Branch Take one tab the night before and one tab the morning of procedure miSOPROStoL 2021- No [id number] 200ug Take 1 [facility] 200 mcg 4-29 10-06 tablet by ity of tablet 00:00: 00:00 mouth [place] 00 :00 SEE-INSTRU Medical CTIONS. Branch Take one tab the night before and one tab the morning of procedure miSOPROStoL 2021- No [id number] 200ug Take 1 [facility] 200 mcg 4-29 10-06 tablet by ity of tablet 00:00: 00:00 mouth [place] 00 :00 SEE-INSTRU Medical CTIONS. Branch Take one tab the night before and one tab the morning of procedure miSOPROStoL 2021- No [id number] 200ug Take 1 [facility] 200 mcg 4-29 10-06 tablet by ity of tablet 00:00: 00:00 mouth [place] 00 :00 SEE-INSTRU Medical CTIONS. Branch Take one tab the night before and one tab the morning of procedure miSOPROStoL 2021- No [id number] 200ug Take 1 [facility] 200 mcg 4-29 10-06 tablet by ity of tablet 00:00: 00:00 mouth [place] 00 :00 SEE-INSTRU Medical CTIONS. Branch Take one tab the night before and one tab the morning of procedure miSOPROStoL 2021- No [id number] 200ug Take 1 [facility] 200 mcg 4-29 10-06 tablet by ity of tablet 00:00: 00:00 mouth [place] 00 :00 SEE-INSTRU Medical CTIONS. Branch Take one tab the night before and one tab the morning of procedure miSOPROStoL 2021- No [id number] 200ug Take 1 [facility] 200 mcg 4-29 10-06 tablet by ity of tablet 00:00: 00:00 mouth [place] 00 :00 SEE-INSTRU Medical CTIONS. Branch Take one tab the night before and one tab the morning of procedure miSOPROStoL 2021- No [id number] 200ug Take 1 [facility] 200 mcg 4-29 10-06 tablet by ity of tablet 00:00: 00:00 [facility] 00 :00 SEE-INSTRU Medical CTIONS. Branch Take one tab the night before and one tab the morning of procedure miSOPROStoL 2021- No [id number] 200ug Take 1 [facility] 200 mcg 4-29 10-06 tablet by ity of tablet 00:00: 00:00 [facility] 00 :00 SEE-INSTRU Medical CTIONS. Branch Take one tab the night before and one tab the morning of procedure miSOPROStoL 2021- No [id number] 200ug Take 1 [facility] 200 mcg 4-29 10-06 tablet by ity of tablet 00:00: 00:00 [facility] 00 :00 SEE-INSTRU Medical CTIONS. Branch Take one tab the night before and one tab the morning of procedure miSOPROStoL 2021- No [id number] 200ug Take 1 [facility] 200 mcg 4-29 10-06 tablet by ity of tablet 00:00: 00:00 [facility] 00 :00 SEE-INSTRU Medical CTIONS. Branch Take one tab the night before and one tab the morning of procedure miSOPROStoL 2021- No [id number] 200ug Take 1 [facility] 200 mcg 4-29 10-06 tablet by ity of tablet 00:00: 00:00 [facility] 00 :00 SEE-INSTRU Medical CTIONS. Branch Take one tab the night before and one tab the morning of procedure miSOPROStoL 2021- No [id number] 200ug Take 1 [facility] 200 mcg 4-29 10-06 tablet by ity of tablet 00:00: 00:00 [facility] 00 :00 SEE-INSTRU Medical CTIONS. Branch Take one tab the night before and one tab the morning of procedure miSOPROStoL 2021-2021- No [id number] 200ug Take 1 [facility] 200 mcg 4-29 10-06 tablet by ity of tablet 00:00: 00:00 [facility] 00 :00 SEE-INSTRU Medical CTIONS. Branch Take one tab the night before and one tab the morning of procedure miSOPROStoL 2021- No [id number] 200ug Take 1 [facility] 200 mcg 4-29 10-06 tablet by ity of tablet 00:00: 00:00 mouth [place] 00 :00 SEE-INSTRU Medical CTIONS. Branch Take one tab the night before and one tab the morning of procedure miSOPROStoL 2021- No [id number] 200ug Take 1 [facility] 200 mcg 4-29 10-06 tablet by ity of tablet 00:00: 00:00 mouth [place] 00 :00 SEE-INSTRU Medical CTIONS. Branch Take one tab the night before and one tab the morning of procedure miSOPROStoL 2021- No [id number] 200ug Take 1 [facility] 200 mcg 4-29 10-06 tablet by ity of tablet 00:00: 00:00 mouth [place] 00 :00 SEE-INSTRU Medical CTIONS. Branch Take one tab the night before and one tab the morning of procedure miSOPROStoL 2021- No [id number] 200ug Take 1 [facility] 200 mcg 4-29 10-06 tablet by ity of tablet 00:00: 00:00 [facility] [place] 00 :00 SEE-INSTRU Medical CTIONS. Branch Take one tab the night before and one tab the morning of procedure Immunizations Ordered Immunization Filled Immunization Date Status Commen ts Source Name Name SARS-COV-2 COVID-2022-03-17 Completed Unive [facility] of [facility]KE-SUCROSE VACCINE 00:00:00 [facility] 12 YRS+, BIVALENT Branch 0.3ML, IM, (PFIZER ARITA TOP BOOSTER) SARS-COV-2 COVID-2022-03-17 Completed Unive rsity of MIKE-SUCROSE VACCINE 00:00:00 [facility] 12 YRS+, BIVALENT Branch 0.3ML, IM, (PFIZER ARITA TOP BOOSTER) SARS-COV-2 COVID-19 2022-03-17 Completed Unive rsity of MIKE-SUCROSE VACCINE 00:00:00 [facility] 12 YRS+, BIVALENT Branch 0.3ML, IM, (PFIZER ARITA TOP BOOSTER) SARS-COV-2 COVID-19 2022-03-17 Completed Unive rsity of MIKE-SUCROSE VACCINE 00:00:00 [facility] 12 YRS+, BIVALENT Branch 0.3ML, IM, (PFIZER ARITA TOP BOOSTER) SARS-COV-2 COVID-19 2022-03-17 Completed Unive rsity of MIKE-SUCROSE VACCINE 00:00:00 [facility] 12 YRS+, BIVALENT Branch 0.3ML, IM, (PFIZER ARITA TOP BOOSTER) SARS-COV-2 COVID-19 2022-03-17 Completed Unive rsity of MIKE-SUCROSE VACCINE 00:00:00 [facility] 12 YRS+, BIVALENT Branch 0.3ML, IM, (PFIZER ARITA TOP BOOSTER) SARS-COV-2 COVID-19 2022-03-17 Completed Unive rsity of MIKE-SUCROSE VACCINE 00:00:00 [facility] 12 YRS+, BIVALENT Branch 0.3ML, IM, (PFIZER ARITA TOP BOOSTER) SARS-COV-2 COVID-19 2022-03-17 Completed Unive rsity of MIKE-SUCROSE VACCINE 00:00:00 [facility] 12 YRS+, BIVALENT Branch 0.3ML, IM, (PFIZER ARITA TOP BOOSTER) SARS-COV-2 COVID-19 2022-03-17 Completed Unive rsity of MIKE-SUCROSE VACCINE 00:00:00 [facility] 12 YRS+, BIVALENT Branch 0.3ML, IM, (PFIZER ARITA TOP BOOSTER) SARS-COV-2 COVID-19 2022-03-17 Completed Unive rsity of MIKE-SUCROSE VACCINE 00:00:00 [facility] 12 YRS+, BIVALENT Branch 0.3ML, IM, (PFIZER ARITA TOP BOOSTER) SARS-COV-2 COVID-19 2022-03-17 Completed Unive rsity of MIKE-SUCROSE VACCINE 00:00:00 [facility] 12 YRS+, BIVALENT Branch 0.3ML, IM, (PFIZER ARITA TOP BOOSTER) SARS-COV-2 COVID-19 2022-03-17 Completed Unive rsity of MIKE-SUCROSE VACCINE 00:00:00 [facility] 12 YRS+, BIVALENT Branch 0.3ML, IM, (PFIZER ARITA TOP BOOSTER) SARS-COV-2 COVID-19 2022-03-17 Completed Unive rsity of MIKE-SUCROSE VACCINE 00:00:00 [facility] 12 YRS+, BIVALENT Branch 0.3ML, IM, (PFIZER ARITA TOP BOOSTER) SARS-COV-2 COVID-19 2022-03-17 Completed Unive rsity of MIKE-SUCROSE VACCINE 00:00:00 [facility] 12 YRS+, BIVALENT Branch 0.3ML, IM, (PFIZER ARITA TOP BOOSTER) SARS-COV-2 COVID-19 2022-03-17 Completed Unive rsity of MIKE-SUCROSE VACCINE 00:00:00 [facility] 12 YRS+, BIVALENT Branch 0.3ML, IM, (PFIZER ARITA TOP BOOSTER) SARS-COV-2 COVID-19 2022-03-17 Completed Unive rsity of MIKE-SUCROSE VACCINE 00:00:00 [facility] 12 YRS+, BIVALENT Branch 0.3ML, IM, (PFIZER ARITA TOP BOOSTER) SARS-COV-2 COVID-19 2022-03-17 Completed Unive rsity of MIKE-SUCROSE VACCINE 00:00:00 [facility] 12 YRS+, BIVALENT Branch 0.3ML, IM, (PFIZER ARITA TOP BOOSTER) SARS-COV-2 COVID-19 2022-03-17 Completed Unive rsity of MIKE-SUCROSE VACCINE 00:00:00 [facility] 12 YRS+, BIVALENT Branch 0.3ML, IM, (PFIZER ARITA TOP BOOSTER) SARS-COV-2 COVID-19 2022-03-17 Completed Unive rsity of MIKE-SUCROSE VACCINE 00:00:00 [facility] 12 YRS+, BIVALENT Branch 0.3ML, IM, (PFIZER ARITA TOP BOOSTER) SARS-COV-2 COVID-19 2022-03-17 Completed Unive rsity of MIKE-SUCROSE VACCINE 00:00:00 [facility] 12 YRS+, BIVALENT Branch 0.3ML, IM, (PFIZER ARITA TOP BOOSTER) SARS-COV-2 COVID-19 2022-03-17 Completed Unive rsity of MIKE-SUCROSE VACCINE 00:00:00 [facility] 12 YRS+, BIVALENT Branch 0.3ML, IM, (PFIZER ARITA TOP BOOSTER) SARS-COV-2 COVID-19 2022-03-17 Completed Unive rsity of MIKE-SUCROSE VACCINE 00:00:00 [facility] 12 YRS+, BIVALENT Branch 0.3ML, IM, (PFIZER ARITA TOP BOOSTER) SARS-COV-2 COVID-19 2022-03-17 Completed Unive rsity of MIKE-SUCROSE VACCINE 00:00:00 [facility] 12 YRS+, BIVALENT Branch 0.3ML, IM, (PFIZER ARITA TOP BOOSTER) SARS-COV-2 COVID-19 2022-03-17 Completed Unive rsity of MIKE-SUCROSE VACCINE 00:00:00 [facility] 12 YRS+, BIVALENT Branch 0.3ML, IM, (PFIZER ARITA TOP BOOSTER) SARS-COV-2 COVID-19 2022-03-17 Completed Unive rsity of MIKE-SUCROSE VACCINE 00:00:00 [facility] 12 YRS+, BIVALENT Branch 0.3ML, IM, (PFIZER ARITA TOP BOOSTER) SARS-COV-2 COVID-19 2022-03-17 Completed Unive rsity of MIKE-SUCROSE VACCINE 00:00:00 [facility] 12 YRS+, BIVALENT Branch 0.3ML, IM, (PFIZER ARITA TOP BOOSTER) SARS-COV-2 COVID-19 2022-03-17 Completed Unive rsity of MIKE-SUCROSE VACCINE 00:00:00 [facility] 12 YRS+, BIVALENT Branch 0.3ML, IM, (PFIZER ARITA TOP BOOSTER) SARS-COV-2 COVID-19 2022-03-17 Completed Unive rsity of MIKE-SUCROSE VACCINE 00:00:00 [facility] 12 YRS+, BIVALENT Branch 0.3ML, IM, (PFIZER ARITA TOP BOOSTER) SARS-COV-2 COVID-19 2022-03-17 Completed Unive rsity of MIKE-SUCROSE VACCINE 00:00:00 [facility] 12 YRS+, BIVALENT Branch 0.3ML, IM, (PFIZER ARITA TOP BOOSTER) SARS-COV-2 COVID-19 2022-03-17 Completed Unive rsity of MIKE-SUCROSE VACCINE 00:00:00 [facility] 12 YRS+, BIVALENT Branch 0.3ML, IM, (PFIZER ARITA TOP BOOSTER) SARS-COV-2 COVID-19 2022-03-17 Completed Unive rsity of MIKE-SUCROSE VACCINE 00:00:00 [facility] 12 YRS+, BIVALENT Branch 0.3ML, IM, (PFIZER ARITA TOP BOOSTER) SARS-COV-2 COVID-19 2022-03-17 Completed Unive rsity of MIKE-SUCROSE VACCINE 00:00:00 [facility] 12 YRS+, BIVALENT Branch 0.3ML, IM, (PFIZER ARITA TOP BOOSTER) SARS-COV-2 COVID-19 2022-03-17 Completed Unive rsity of MIKE-SUCROSE VACCINE 00:00:00 [facility] 12 YRS+, BIVALENT Branch 0.3ML, IM, (PFIZER ARITA TOP BOOSTER) SARS-COV-2 COVID-19 2022-03-17 Completed Unive rsity of MIKE-SUCROSE VACCINE 00:00:00 [facility] 12 YRS+, BIVALENT Branch 0.3ML, IM, (PFIZER ARITA TOP BOOSTER) SARS-COV-2 COVID-19 2022-03-17 Completed Unive rsity of MIKE-SUCROSE VACCINE 00:00:00 [facility] 12 YRS+, BIVALENT Branch 0.3ML, IM, (PFIZER ARITA TOP BOOSTER) SARS-COV-2 COVID-19 2022-03-17 Completed Unive rsity of MIKE-SUCROSE VACCINE 00:00:00 [facility] 12 YRS+, BIVALENT Branch 0.3ML, IM, (PFIZER ARITA TOP BOOSTER) SARS-COV-2 COVID-19 2022-03-17 Completed Unive rsity of MIKE-SUCROSE VACCINE 00:00:00 [facility] 12 YRS+, BIVALENT Branch 0.3ML, IM, (PFIZER ARITA TOP BOOSTER) SARS-COV-2 COVID-19 2022-03-17 Completed Unive rsity of MIKE-SUCROSE VACCINE 00:00:00 [facility] 12 YRS+, BIVALENT Branch 0.3ML, IM, (PFIZER ARITA TOP BOOSTER) SARS-COV-2 COVID-19 2022-03-17 Completed Unive rsity of MIKE-SUCROSE VACCINE 00:00:00 [facility] 12 YRS+, BIVALENT Branch 0.3ML, IM, (PFIZER ARITA TOP BOOSTER) SARS-COV-2 COVID-19 2022-03-17 Completed Unive rsity of MIKE-SUCROSE VACCINE 00:00:00 [facility] 12 YRS+, BIVALENT Branch 0.3ML, IM, (PFIZER ARITA TOP BOOSTER) SARS-COV-2 COVID-19 2022-03-17 Completed Unive rsity of MIKE-SUCROSE VACCINE 00:00:00 [facility] 12 YRS+, BIVALENT Branch 0.3ML, IM, (PFIZER ARITA TOP BOOSTER) SARS-COV-2 COVID-19 2021-06-24 Completed Unive rsity of PFIZER VACCINE 00:00:00 [facility] Branch SARS-COV-2 COVID-19 2021-06-24 Completed Unive rsity of PFIZER VACCINE 00:00:00 [facility] Branch SARS-COV-2 COVID-19 2021-06-24 Completed Unive rsity of PFIZER VACCINE 00:00:00 [facility] Branch SARS-COV-2 COVID-19 2021-06-24 Completed Unive rsity of PFIZER VACCINE 00:00:00 [facility] Branch SARS-COV-2 COVID-19 2021-06-24 Completed Unive rsity of PFIZER VACCINE 00:00:00 [facility] Branch SARS-COV-2 COVID-19 2021-06-24 Completed Unive rsity of PFIZER VACCINE 00:00:00 [facility] Branch SARS-COV-2 COVID-19 2021-06-24 Completed Unive rsity of PFIZER VACCINE 00:00:00 [facility] Branch SARS-COV-2 COVID-19 2021-06-24 Completed Unive rsity of PFIZER VACCINE 00:00:00 [facility] Branch SARS-COV-2 COVID-19 2021-06-24 Completed Unive rsity of PFIZER VACCINE 00:00:00 [facility] Branch SARS-COV-2 COVID-19 2021-06-24 Completed Unive rsity of PFIZER VACCINE 00:00:00 [facility] Branch SARS-COV-2 COVID-19 2021-06-24 Completed Unive rsity of PFIZER VACCINE 00:00:00 [facility] Branch SARS-COV-2 COVID-19 2021-06-24 Completed Unive rsity of PFIZER VACCINE 00:00:00 [facility] Branch SARS-COV-2 COVID-19 2021-06-24 Completed Unive rsity of PFIZER VACCINE 00:00:00 [facility] Branch SARS-COV-2 COVID-19 2021-06-24 Completed Unive rsity of PFIZER VACCINE 00:00:00 [facility] Branch SARS-COV-2 COVID-19 2021-06-24 Completed Unive rsity of PFIZER VACCINE 00:00:00 [facility] Branch SARS-COV-2 COVID-19 2021-06-24 Completed Unive rsity of PFIZER VACCINE 00:00:00 [facility] Branch SARS-COV-2 COVID-19 2021-06-24 Completed Unive rsity of PFIZER VACCINE 00:00:00 [facility] SARS-COV-2 COVID-19 2021-06-24 Completed Unive rsity of PFIZER VACCINE 00:00:00 [place] [facility] SARS-COV-2 COVID-19 2021-06-24 Completed Unive rsity of PFIZER VACCINE 00:00:00 [facility] Branch SARS-COV-2 COVID-19 2021-06-24 Completed Unive rsity of PFIZER VACCINE 00:00:00 [facility] Branch SARS-COV-2 COVID-19 2021-06-24 Completed Unive rsity of PFIZER VACCINE 00:00:00 [facility] Branch SARS-COV-2 COVID-19 2021-06-24 Completed Unive rsity of PFIZER VACCINE 00:00:00 [facility] Branch SARS-COV-2 COVID-19 2021-06-24 Completed Unive rsity of PFIZER VACCINE 00:00:00 [facility] Branch SARS-COV-2 COVID-19 2021-06-24 Completed Unive rsity of PFIZER VACCINE 00:00:00 [facility] Branch SARS-COV-2 COVID-19 2021-06-24 Completed Unive rsity of PFIZER VACCINE 00:00:00 [facility] Branch SARS-COV-2 COVID-19 2021-06-24 Completed Unive rsity of PFIZER VACCINE 00:00:00 [facility] Branch SARS-COV-2 COVID-19 2021-06-24 Completed Unive rsity of PFIZER VACCINE 00:00:00 [facility] Branch SARS-COV-2 COVID-19 2021-06-24 Completed Unive rsity of PFIZER VACCINE 00:00:00 [facility] SARS-COV-2 COVID-19 2021-06-24 Completed Unive rsity of PFIZER VACCINE 00:00:00 [facility] Branch SARS-COV-2 COVID-19 2021-06-24 Completed Unive rsity of PFIZER VACCINE 00:00:00 [facility] Branch SARS-COV-2 COVID-19 2021-06-24 Completed Unive rsity of PFIZER VACCINE 00:00:00 [facility] Branch SARS-COV-2 COVID-19 2021-06-24 Completed Unive rsity of PFIZER VACCINE 00:00:00 [facility] Branch SARS-COV-2 COVID-19 2021-06-24 Completed Unive rsity of PFIZER VACCINE 00:00:00 [facility] Branch SARS-COV-2 COVID-19 2021-06-24 Completed Unive rsity of PFIZER VACCINE 00:00:00 [facility] SARS-COV-2 COVID-19 2021-06-24 Completed Unive rsity of PFIZER VACCINE 00:00:00 [facility] Branch SARS-COV-2 COVID-19 2021-06-24 Completed Unive rsity of PFIZER VACCINE 00:00:00 [facility] SARS-COV-2 COVID-19 2021-06-24 Completed Unive rsity of PFIZER VACCINE 00:00:00 [facility] Branch SARS-COV-2 COVID-19 2021-06-24 Completed Unive rsity of PFIZER VACCINE 00:00:00 [facility] Branch SARS-COV-2 COVID-19 2021-06-24 Completed Unive rsity of PFIZER VACCINE 00:00:00 [facility] Branch SARS-COV-2 COVID-19 2021-06-24 Completed Unive rsity of PFIZER VACCINE 00:00:00 [facility] Branch SARS-COV-2 COVID-19 2021-06-24 Completed Unive rsity of PFIZER VACCINE 00:00:00 [facility] Branch SARS-COV-2 COVID-19 2021-06-24 Completed Unive rsity of PFIZER VACCINE 00:00:00 [facility] Branch SARS-COV-2 COVID-19 2020-11-21 Completed Unive rsity of PFIZER VACCINE 00:00:00 [facility] SARS-COV-2 COVID-19 2020-11-21 Completed Unive rsity of PFIZER VACCINE 00:00:00 [facility] SARS-COV-2 COVID-19 2020-11-21 Completed Unive rsity of PFIZER VACCINE 00:00:00 [facility] Branch SARS-COV-2 COVID-19 2020-11-21 Completed Unive rsity of PFIZER VACCINE 00:00:00 [facility] Branch SARS-COV-2 COVID-19 2020-11-21 Completed Unive rsity of PFIZER VACCINE 00:00:00 [facility] SARS-COV-2 COVID-19 2020-11-21 Completed Unive rsity of PFIZER VACCINE 00:00:00 [facility] SARS-COV-2 COVID-19 2020-11-21 Completed Unive rsity of PFIZER VACCINE 00:00:00 [facility] SARS-COV-2 COVID-19 2020-11-21 Completed Unive rsity of PFIZER VACCINE 00:00:00 [facility] Branch SARS-COV-2 COVID-19 2020-11-21 Completed Unive rsity of PFIZER VACCINE 00:00:00 [facility] Branch SARS-COV-2 COVID-19 2020-11-21 Completed Unive rsity of PFIZER VACCINE 00:00:00 [facility] Branch SARS-COV-2 COVID-19 2020-11-21 Completed Unive rsity of PFIZER VACCINE 00:00:00 [facility] Branch SARS-COV-2 COVID-19 2020-11-21 Completed Unive rsity of PFIZER VACCINE 00:00:00 [facility] Branch SARS-COV-2 COVID-19 2020-11-21 Completed Unive rsity of PFIZER VACCINE 00:00:00 [facility] Branch SARS-COV-2 COVID-19 2020-11-21 Completed Unive rsity of PFIZER VACCINE 00:00:00 [facility] Branch SARS-COV-2 COVID-19 2020-11-21 Completed Unive rsity of PFIZER VACCINE 00:00:00 [facility] Branch SARS-COV-2 COVID-19 2020-11-21 Completed Unive rsity of PFIZER VACCINE 00:00:00 [facility] Branch SARS-COV-2 COVID-19 2020-11-21 Completed Unive rsity of PFIZER VACCINE 00:00:00 [facility] Branch SARS-COV-2 COVID-19 2020-11-21 Completed Unive rsity of PFIZER VACCINE 00:00:00 [facility] Branch SARS-COV-2 COVID-19 2020-11-21 Completed Unive rsity of PFIZER VACCINE 00:00:00 [facility] Branch SARS-COV-2 COVID-19 2020-11-21 Completed Unive rsity of PFIZER VACCINE 00:00:00 [facility] Branch SARS-COV-2 COVID-19 2020-11-21 Completed Unive rsity of PFIZER VACCINE 00:00:00 [facility] Branch SARS-COV-2 COVID-19 2020-11-21 Completed Unive rsity of PFIZER VACCINE 00:00:00 [facility] Branch SARS-COV-2 COVID-19 2020-11-21 Completed Unive rsity of PFIZER VACCINE 00:00:00 [facility] Branch SARS-COV-2 COVID-19 2020-11-21 Completed Unive rsity of PFIZER VACCINE 00:00:00 [facility] Branch SARS-COV-2 COVID-19 2020-11-21 Completed Unive rsity of PFIZER VACCINE 00:00:00 [facility] Branch SARS-COV-2 COVID-19 2020-11-21 Completed Unive rsity of PFIZER VACCINE 00:00:00 [facility] SARS-COV-2 COVID-19 2020-11-21 Completed Unive rsity of PFIZER VACCINE 00:00:00 [facility] [facility] SARS-COV-2 COVID-19 2020-11-21 Completed [facility] PFIZER VACCINE 00:00:00 [facility] SARS-COV-2 COVID-19 2020-11-21 Completed [facility] PFIZER VACCINE 00:00:00 [facility] SARS-COV-2 COVID-19 2020-11-21 Completed [facility] PFIZER VACCINE 00:00:00 [facility] SARS-COV-2 COVID-19 2020-11-21 Completed [facility] of PFIZER VACCINE 00:00:00 [facility] SARS-COV-2 COVID-19 2020-11-21 Completed [facility] of PFIZER VACCINE 00:00:00 [facility] SARS-COV-2 COVID-19 2020-11-21 Completed [facility] of PFIZER VACCINE 00:00:00 [facility] SARS-COV-2 COVID-19 2020-11-21 Completed [facility] of PFIZER VACCINE 00:00:00 [facility] SARS-COV-2 COVID-19 2020-11-21 Completed [facility] of PFIZER VACCINE 00:00:00 [facility] SARS-COV-2 COVID-19 2020-11-21 Completed [facility] of PFIZER VACCINE 00:00:00 [facility] SARS-COV-2 COVID-19 2020-11-21 Completed [facility] of PFIZER VACCINE 00:00:00 [facility] SARS-COV-2 COVID-19 2020-11-21 Completed [facility] of PFIZER VACCINE 00:00:00 [facility] SARS-COV-2 COVID-19 2020-11-21 Completed [facility] of PFIZER VACCINE 00:00:00 [facility] SARS-COV-2 COVID-19 2020-11-21 Completed [facility] PFIZER VACCINE 00:00:00 [facility] SARS-COV-2 COVID-19 2020-11-21 Completed [facility] of PFIZER VACCINE 00:00:00 [facility] SARS-COV-2 COVID-19 2020-11-21 Completed [facility] of PFIZER VACCINE 00:00:00 [facility] SARS-COV-2 COVID-19 2020-10-24 Completed [facility] PFIZER VACCINE 00:00:00 [facility] SARS-COV-2 COVID-19 2020-10-24 Completed [facility] PFIZER VACCINE 00:00:00 [facility] SARS-COV-2 COVID-19 2020-10-24 Completed [facility] of PFIZER VACCINE 00:00:00 [facility] SARS-COV-2 COVID-19 2020-10-24 Completed [facility] of PFIZER VACCINE 00:00:00 [facility] SARS-COV-2 COVID-19 2020-10-24 Completed [facility] of PFIZER VACCINE 00:00:00 [facility] SARS-COV-2 COVID-19 2020-10-24 Completed [facility] PFIZER VACCINE 00:00:00 [facility] SARS-COV-2 COVID-19 2020-10-24 Completed [facility] of PFIZER VACCINE 00:00:00 [facility] SARS-COV-2 COVID-19 2020-10-24 Completed [facility] PFIZER VACCINE 00:00:00 [facility] SARS-COV-2 COVID-19 2020-10-24 Completed [facility] PFIZER VACCINE 00:00:00 [facility] SARS-COV-2 COVID-19 2020-10-24 Completed [facility] of PFIZER VACCINE 00:00:00 [facility] SARS-COV-2 COVID-19 2020-10-24 Completed [facility] PFIZER VACCINE 00:00:00 [facility] SARS-COV-2 COVID-19 2020-10-24 Completed [facility] of PFIZER VACCINE 00:00:00 [facility] SARS-COV-2 COVID-19 2020-10-24 Completed [facility] PFIZER VACCINE 00:00:00 [facility] SARS-COV-2 COVID-19 2020-10-24 Completed [facility] PFIZER VACCINE 00:00:00 [facility] SARS-COV-2 COVID-19 2020-10-24 Completed [facility] PFIZER VACCINE 00:00:00 [facility] SARS-COV-2 COVID-19 2020-10-24 Completed [facility] PFIZER VACCINE 00:00:00 [facility] SARS-COV-2 COVID-19 2020-10-24 Completed [facility] PFIZER VACCINE 00:00:00 [facility] SARS-COV-2 COVID-19 2020-10-24 Completed [facility] PFIZER VACCINE 00:00:00 [facility] SARS-COV-2 COVID-19 2020-10-24 Completed [facility] PFIZER VACCINE 00:00:00 [facility] SARS-COV-2 COVID-19 2020-10-24 Completed [facility] PFIZER VACCINE 00:00:00 [facility] SARS-COV-2 COVID-19 2020-10-24 Completed [facility] PFIZER VACCINE 00:00:00 [facility] SARS-COV-2 COVID-19 2020-10-24 Completed [facility] PFIZER VACCINE 00:00:00 [facility] SARS-COV-2 COVID-19 2020-10-24 Completed [facility] PFIZER VACCINE 00:00:00 [facility] SARS-COV-2 COVID-19 2020-10-24 Completed [facility] of PFIZER VACCINE 00:00:00 [facility] SARS-COV-2 COVID-19 2020-10-24 Completed [facility] PFIZER VACCINE 00:00:00 [facility] SARS-COV-2 COVID-19 2020-10-24 Completed [facility] PFIZER VACCINE 00:00:00 [facility] SARS-COV-2 COVID-19 2020-10-24 Completed [facility] PFIZER VACCINE 00:00:00 [facility] SARS-COV-2 COVID-19 2020-10-24 Completed [facility] PFIZER VACCINE 00:00:00 [facility] SARS-COV-2 COVID-19 2020-10-24 Completed [facility] PFIZER VACCINE 00:00:00 [facility] SARS-COV-2 COVID-19 2020-10-24 Completed [facility] PFIZER VACCINE 00:00:00 [facility] SARS-COV-2 COVID-19 2020-10-24 Completed [facility] PFIZER VACCINE 00:00:00 [facility] SARS-COV-2 COVID-19 2020-10-24 Completed [facility] PFIZER VACCINE 00:00:00 [facility] SARS-COV-2 COVID-19 2020-10-24 Completed [facility] PFIZER VACCINE 00:00:00 [facility] SARS-COV-2 COVID-19 2020-10-24 Completed [facility] PFIZER VACCINE 00:00:00 [facility] SARS-COV-2 COVID-19 2020-10-24 Completed [facility] PFIZER VACCINE 00:00:00 [facility] SARS-COV-2 COVID-19 2020-10-24 Completed [facility] PFIZER VACCINE 00:00:00 [facility] SARS-COV-2 COVID-19 2020-10-24 Completed [facility] PFIZER VACCINE 00:00:00 [facility] SARS-COV-2 COVID-19 2020-10-24 Completed [facility] PFIZER VACCINE 00:00:00 [facility] SARS-COV-2 COVID-19 2020-10-24 Completed [facility] PFIZER VACCINE 00:00:00 [facility] SARS-COV-2 COVID-19 2020-10-24 Completed [facility] PFIZER VACCINE 00:00:00 [facility] SARS-COV-2 COVID-19 2020-10-24 Completed [facility] PFIZER VACCINE 00:00:00 [facility] SARS-COV-2 COVID-19 2020-10-24 Completed [facility] PFIZER VACCINE 00:00:00 [facility] Influenza Virus 2020-07-08 Completed [facility] Vaccine Quad .5 mL IM 00:00:[address] [facility] 6+ MO [facility] Influenza Virus 2020-07-08 Completed [...] OMV 2018-10-31 Completed [facility] ers[facility] of 00:00:00 [facility] Meningococcal B, OMV 2018-10-31 Completed [facility] ers[facility] of 00:00:00 [facility] Meningococcal B, OMV 2018-10-31 Completed [facility] of 00:00:00 [facility] Meningococcal B, OMV 2018-10-31 Completed [facility] ers[facility] of 00:00:00 [facility] Influenza Virus 2018-08-29 Completed [facility] Vaccine Quad .5 mL IM 00:00:00 [facility] Meningococcal B, OMV 2018-08-29 Completed [facility] ers[facility] of 00:00:00 [facility] Influenza Virus 2018-08-29 Completed [facility] Vaccine Quad .5 mL IM 00:00:00 [facility] Meningococcal B, OMV 2018-08-29 Completed [facility] ers[facility] of 00:00:00 [facility] Influenza Virus 2018-08-29 Completed [facility] Vaccine Quad .5 mL IM 00:00:00 [facility] Meningococcal B, OMV 2018-08-29 Completed [facility] ers[facility] of 00:00:00 [facility] Influenza Virus 2018-08-29 Completed [facility] Vaccine Quad .5 mL IM 00:00:00 [facility] Meningococcal B, OMV 2018-08-29 Completed [facility] ers[facility] of 00:00:00 [facility] Influenza Virus 2018-08-29 Completed [facility] Vaccine Quad .5 mL IM 00:00:00 [facility] Meningococcal B, OMV 2018-08-29 Completed [facility] ers[facility] of 00:00:00 [facility] Influenza Virus 2018-08-29 Completed [facility] Vaccine Quad .5 mL IM 00:00:00 [facility] Meningococcal B, OMV 2018-08-29 Completed [facility] ers[facility] of 00:00:00 [facility] Influenza Virus 2018-08-29 Completed [facility] Vaccine Quad .5 mL IM 00:00:00 [facility] Meningococcal B, OMV 2018-08-29 Completed [facility] of 00:00:00 [facility] Influenza Virus 2018-08-29 Completed [facility] Vaccine Quad .5 mL IM 00:00:00 [facility] Meningococcal B, OMV 2018-08-29 Completed [facility] of 00:00:00 [facility] Influenza Virus 2018-08-29 Completed [facility] Vaccine Quad .5 mL IM 00:00:00 [facility] Meningococcal B, OMV 2018-08-29 Completed [facility] of 00:00:00 [facility] Influenza Virus 2018-08-29 Completed [facility] Vaccine Quad .5 mL IM 00:00:00 [facility] Meningococcal B, OMV 2018-08-29 Completed [facility] ers[facility] of 00:00:00 [facility] Influenza Virus 2018-08-29 Completed [facility] Vaccine Quad .5 mL IM 00:00:00 [facility] Meningococcal B, OMV 2018-08-29 Completed [facility] ers[facility] of 00:00:00 [facility] Influenza Virus 2018-08-29 Completed [facility] Vaccine Quad .5 mL IM 00:00:00 [facility] Meningococcal B, OMV 2018-08-29 Completed [facility] of 00:00:00 [facility] Influenza Virus 2018-08-29 Completed [facility] Vaccine Quad .5 mL IM 00:00:00 [facility] Meningococcal B, OMV 2018-08-29 Completed [facility] of 00:00:00 [facility] Influenza Virus 2018-08-29 Completed [facility] Vaccine Quad .5 mL IM 00:00:00 [facility] Meningococcal B, OMV 2018-08-29 Completed [facility] of 00:00:00 [facility] Influenza Virus 2018-08-29 Completed [facility] Vaccine Quad .5 mL IM 00:00:00 [facility] Meningococcal B, OMV 2018-08-29 Completed [facility] ers[facility] of 00:00:00 [facility] Influenza Virus 2018-08-29 Completed [facility] Vaccine Quad .5 mL IM 00:00:00 [facility] Meningococcal B, OMV 2018-08-29 Completed [facility] of 00:00:00 [facility] Influenza Virus 2018-08-29 Completed [facility] Vaccine Quad .5 mL IM 00:00:00 [facility] Meningococcal B, OMV 2018-08-29 Completed [facility] ers[facility] of 00:00:00 [facility] Influenza Virus 2018-08-29 Completed [facility] Vaccine Quad .5 mL IM 00:00:00 [facility] Meningococcal B, OMV 2018-08-29 Completed [facility] ers[facility] of 00:00:00 [facility] Influenza Virus 2018-08-29 Completed [facility] Vaccine Quad .5 mL IM 00:00:00 [facility] Meningococcal B, OMV 2018-08-29 Completed [facility] of 00:00:00 [facility] Influenza Virus 2018-08-29 Completed [facility] Vaccine Quad .5 mL IM 00:00:00 [facility] Meningococcal B, OMV 2018-08-29 Completed [facility] of 00:00:00 [facility] Influenza Virus 2018-08-29 Completed [facility] Vaccine Quad .5 mL IM 00:00:00 [facility] Meningococcal B, OMV 2018-08-29 Completed [facility] of 00:00:00 [facility] Influenza Virus 2018-08-29 Completed [facility] Vaccine Quad .5 mL IM 00:00:00 [facility] Meningococcal B, OMV 2018-08-29 Completed [facility] of 00:00:00 [facility] Influenza Virus 2018-08-29 Completed [facility] Vaccine Quad .5 mL IM 00:00:00 [facility] Meningococcal B, OMV 2018-08-29 Completed [facility] of 00:00:00 [facility] Influenza Virus 2018-08-29 Completed [facility] Vaccine Quad .5 mL IM 00:00:00 [facility] Meningococcal B, OMV 2018-08-29 Completed [facility] of 00:00:00 [facility] Influenza Virus 2018-08-29 Completed [facility] Vaccine Quad .5 mL IM 00:00:00 [facility] Meningococcal B, OMV 2018-08-29 Completed [facility] 00:00:00 [facility] Influenza Virus 2018-08-29 Completed [facility] Vaccine Quad .5 mL IM 00:00:00 [facility] Meningococcal B, OMV 2018-08-29 Completed [facility] 00:00:00 [facility] Influenza Virus 2018-08-29 Completed [facility] Vaccine Quad .5 mL IM 00:00:00 [facility] Meningococcal B, OMV 2018-08-29 Completed [facility] of 00:00:00 [facility] Influenza Virus 2018-08-29 Completed [facility] Vaccine Quad .5 mL IM 00:00:00 [facility] Meningococcal B, OMV 2018-08-29 Completed [facility] of 00:00:00 [facility] Influenza Virus 2018-08-29 Completed [facility] Vaccine Quad .5 mL IM 00:00:00 [facility] Meningococcal B, OMV 2018-08-29 Completed [facility] of 00:00:00 [facility] Influenza Virus 2018-08-29 Completed [facility] Vaccine Quad .5 mL IM 00:00:00 [facility] Meningococcal B, OMV 2018-08-29 Completed [facility] 00:00:00 [facility] Influenza Virus 2018-08-29 Completed [facility] Vaccine Quad .5 mL IM 00:00:00 [facility] Meningococcal B, OMV 2018-08-29 Completed [facility] of 00:00:00 [facility] Influenza Virus 2018-08-29 Completed [facility] Vaccine Quad .5 mL IM 00:00:00 [facility] Meningococcal B, OMV 2018-08-29 Completed [facility] of 00:00:00 [facility] Influenza Virus 2018-08-29 Completed [facility] Vaccine Quad .5 mL IM 00:00:00 [facility] Meningococcal B, OMV 2018-08-29 Completed [facility] of 00:00:00 [facility] Influenza Virus 2018-08-29 Completed [facility] Vaccine Quad .5 mL IM 00:00:00 [facility] Meningococcal B, OMV 2018-08-29 Completed [facility] of 00:00:00 [facility] Influenza Virus 2018-08-29 Completed [facility] Vaccine Quad .5 mL IM 00:00:00 [facility] Meningococcal B, OMV 2018-08-29 Completed [facility] of 00:00:00 [facility] Influenza Virus 2018-08-29 Completed [facility] Vaccine Quad .5 mL IM 00:00:00 [facility] Meningococcal B, OMV 2018-08-29 Completed [facility] of 00:00:00 [facility] Influenza Virus 2018-08-29 Completed [facility] Vaccine Quad .5 mL IM 00:00:00 [facility] Meningococcal B, OMV 2018-08-29 Completed [facility] of 00:00:00 [facility] Influenza Virus 2018-08-29 Completed [facility] Vaccine Quad .5 mL IM 00:00:00 [facility] Meningococcal B, OMV 2018-08-29 Completed [facility] of 00:00:00 [facility] Influenza Virus 2018-08-29 Completed [facility] Vaccine Quad .5 mL IM 00:00:00 [facility] Meningococcal B, OMV 2018-08-29 Completed [facility] of 00:00:00 [facility] Influenza Virus 2018-08-29 Completed [facility] of Vaccine Quad .5 mL IM 00:00:00 [facility] Meningococcal B, OMV 2018-08-29 Completed [facility] of 00:00:00 [facility] Influenza Virus 2018-08-29 Completed [facility] Vaccine Quad .5 mL IM 00:00:00 [facility] Meningococcal B, OMV 2018-08-29 Completed [facility] of 00:00:00 [facility] Influenza Virus 2018-08-29 Completed [facility] Vaccine Quad .5 mL IM 00:00:00 [facility] Meningococcal B, OMV 2018-08-29 Completed [facility] ers[facility] of 00:00:00 [facility] Meningococcal 2018-01-17 Completed University of Polysaccharide [...] Meningococcal 2018-01-17 Completed [facility] Polysaccharide 00:00:00 [place] [facility] (groups A, C, Y and Branc h W-[id number]) conjugate vaccine ([id number]) Influenza Virus 2017-04-12 Completed [facility]it y of Vaccine Quad IM 3+ 00:00:00 [facility] Influenza Virus 2017-04-12 Completed [facility]it y of Vaccine Quad IM 3+ 00:00:00 [facility] Influenza Virus 2017-04-12 Completed [facility] of Vaccine Quad IM 3+ 00:00:00 [facility] Influenza Virus 2017-04-12 Completed [facility] of Vaccine Quad IM 3+ 00:00:00 [facility] Influenza Virus 2017-04-12 Completed [facility] y of Vaccine Quad IM 3+ 00:00:00 [facility] Influenza Virus 2017-04-12 Completed [facility] y of Vaccine Quad IM 3+ 00:00:00 [facility] Influenza Virus 2017-04-12 Completed [facility] of Vaccine Quad IM 3+ 00:00:00 [facility] Influenza Virus 2017-04-12 Completed [facility] of Vaccine Quad IM 3+ 00:00:00 [facility] Influenza Virus 2017-04-12 Completed [facility] of Vaccine Quad IM 3+ 00:00:00 [facility] Influenza Virus 2017-04-12 Completed [facility] of Vaccine Quad IM 3+ 00:00:00 [facility] Influenza Virus 2017-04-12 Completed [facility] of Vaccine Quad IM 3+ 00:00:00 [facility] Influenza Virus 2017-04-12 Completed [facility] y of Vaccine Quad IM 3+ 00:00:00 [facility] Influenza Virus 2017-04-12 Completed [facility] y of Vaccine Quad IM 3+ 00:00:00 [facility] Influenza Virus 2017-04-12 Completed [facility] of Vaccine Quad IM 3+ 00:00:00 [facility] Influenza Virus 2017-04-12 Completed [facility] y of Vaccine Quad IM 3+ 00:00:00 [facility] Influenza Virus 2017-04-12 Completed [facility] y of Vaccine Quad IM 3+ 00:00:00 [facility] Influenza Virus 2017-04-12 Completed [facility] y of Vaccine Quad IM 3+ 00:00:00 [facility] Influenza Virus 2017-04-12 Completed [facility] y of Vaccine Quad IM 3+ 00:00:00 [facility] Influenza Virus 2017-04-12 Completed [facility] y of Vaccine Quad IM 3+ 00:00:00 [facility] Influenza Virus 2017-04-12 Completed [facility] of Vaccine Quad IM 3+ 00:00:00 [facility] Influenza Virus 2017-04-12 Completed [facility] y of Vaccine Quad IM 3+ 00:00:00 [facility] Influenza Virus 2017-04-12 Completed [facility] y of Vaccine Quad IM 3+ 00:00:00 [facility] Influenza Virus 2017-04-12 Completed [facility] of Vaccine Quad IM 3+ 00:00:00 [facility] Influenza Virus 2017-04-12 Completed [facility] of Vaccine Quad IM 3+ 00:00:00 [facility] Influenza Virus 2017-04-12 Completed [facility] of Vaccine Quad IM 3+ 00:00:00 [facility] Influenza Virus 2017-04-12 Completed [facility] y of Vaccine Quad IM 3+ 00:00:00 [facility] Influenza Virus 2017-04-12 Completed [facility] y of Vaccine Quad IM 3+ 00:00:00 [facility] Influenza Virus 2017-04-12 Completed [facility] y of Vaccine Quad IM 3+ 00:00:00 [facility] Influenza Virus 2017-04-12 Completed [facility] of Vaccine Quad IM 3+ 00:00:00 [facility] Influenza Virus 2017-04-12 Completed [facility] of Vaccine Quad IM 3+ 00:00:00 [facility] Influenza Virus 2017-04-12 Completed [facility] of Vaccine Quad IM 3+ 00:00:00 [facility] Influenza Virus 2017-04-12 Completed [facility] of Vaccine Quad IM 3+ 00:00:00 [facility] Influenza Virus 2017-04-12 Completed [facility] y of Vaccine Quad IM 3+ 00:00:00 [facility] Influenza Virus 2017-04-12 Completed [facility] of Vaccine Quad IM 3+ 00:00:00 [facility] Influenza Virus 2017-04-12 Completed [facility] of Vaccine Quad IM 3+ 00:00:00 [facility] Influenza Virus 2017-04-12 Completed [facility] y of Vaccine Quad IM 3+ 00:00:00 [facility] Influenza Virus 2017-04-12 Completed [facility] of Vaccine Quad IM 3+ 00:00:00 [facility] Influenza Virus 2017-04-12 Completed [facility] of Vaccine Quad IM 3+ 00:00:00 [facility] Influenza Virus 2017-04-12 Completed [facility] of Vaccine Quad IM 3+ 00:00:00 [facility] Influenza Virus 2017-04-12 Completed [facility] of Vaccine Quad IM 3+ 00:00:00 [facility] Influenza Virus 2017-04-12 Completed [facility] of Vaccine Quad IM 3+ 00:00:00 [facility] Influenza Virus 2017-04-12 Completed [facility] y of Vaccine Quad IM 3+ 00:00:00 [facility] HPV9 2017-02-01 Completed [facility] 00:00:00 [facility] HPV9 2017-02-01 Completed University of 00:00:00 [facility] HPV9 2017-02-01 Completed [facility] of 00:00:00 [facility] HPV9 2017-02-01 Completed [facility] of 00:00:00 [facility] HPV9 2017-02-01 Completed [facility] of 00:00:00 [facility] HPV9 2017-02-01 Completed [facility] of 00:00:00 [facility] HPV9 2017-02-01 Completed [facility] of 00:00:00 [facility] HPV9 2017-02-01 Completed [facility] of 00:00:00 [facility] HPV9 2017-02-01 Completed [facility] of 00:00:00 [facility] HPV9 2017-02-01 Completed University of 00:00:00 [facility] HPV9 2017-02-01 Completed [facility] of 00:00:00 [facility] HPV9 2017-02-01 Completed [facility] 00:00:00 [facility] HPV9 2017-02-01 Completed [facility] 00:00:00 [facility] HPV9 2017-02-01 Completed [facility] 00:00:00 [facility] HPV9 2017-02-01 Completed [facility] of 00:00:00 [facility] HPV9 2017-02-01 Completed [facility] 00:00:00 [facility] HPV9 2017-02-01 Completed [facility] 00:00:00 [facility] HPV9 2017-02-01 Completed [facility] 00:00:00 [facility] HPV9 2017-02-01 Completed [facility] 00:00:00 [facility] HPV9 2017-02-01 Completed [facility] 00:00:00 [facility] HPV9 2017-02-01 Completed [facility] 00:00:00 [facility] HPV9 2017-02-01 Completed [facility] 00:00:00 [facility] HPV9 2017-02-01 Completed [facility] 00:00:00 [facility] HPV9 2017-02-01 Completed [facility] 00:00:00 [facility] HPV9 2017-02-01 Completed [facility] 00:00:00 [facility] HPV9 2017-02-01 Completed [facility] 00:00:00 [facility] HPV9 2017-02-01 Completed [facility] 00:00:00 [facility] HPV9 2017-02-01 Completed [facility] 00:00:00 [facility] HPV9 2017-02-01 Completed [facility] 00:00:00 [facility] HPV9 2017-02-01 Completed [facility] 00:00:00 [facility] HPV9 2017-02-01 Completed [facility] 00:00:00 [facility] HPV9 2017-02-01 Completed [facility] 00:00:00 [facility] HPV9 2017-02-01 Completed [facility] 00:00:00 [facility] HPV9 2017-02-01 Completed [facility] 00:00:00 [facility] HPV9 2017-02-01 Completed [facility] 00:00:00 [facility] HPV9 2017-02-01 Completed [facility] 00:00:00 [facility] HPV9 2017-02-01 Completed [facility] 00:00:00 [facility] HPV9 2017-02-01 Completed [facility] 00:00:00 [facility] HPV9 2017-02-01 Completed [facility] 00:00:00 [facility] HPV9 2017-02-01 Completed [facility] 00:00:00 [facility] HPV9 2017-02-01 Completed [facility] 00[facility]00:00 [facility] HPV9 2017-02-01 Completed [facility] 00:00:00 [facility] HPV 2016-01-20 Completed [facility] 00:00:00 [facility] HPV 2016-01-20 Completed [facility] 00:00:00 [facility] HPV 2016-01-20 Completed [facility] 00:00:00 [facility] HPV 2016-01-20 Completed [facility] 00:00:00 [facility] HPV 2016-01-20 Completed [facility] 00:00:00 [facility] HPV 2016-01-20 Completed [facility] 00:00:00 [facility] HPV 2016-01-20 Completed [facility] 00:00:00 [facility] HPV 2016-01-20 Completed [facility] 00:00:00 [facility] HPV 2016-01-20 Completed [facility] 00:00:00 [facility] HPV 2016-01-20 Completed [facility] 00:00:00 [facility] HPV 2016-01-20 Completed [facility] 00:00:00 [facility] HPV 2016-01-20 Completed [facility] 00:00:00 [facility] HPV 2016-01-20 Completed [facility] 00:00:00 [facility] HPV 2016-01-20 Completed [facility] 00:00:00 [facility] HPV 2016-01-20 Completed [facility] 00:00:00 [facility] HPV 2016-01-20 Completed [facility] [...] Branch HPV 2016-01-20 Completed [facility] 00:00:00 [facility] HPV 2016-01-20 Completed [facility] 00:00:00 [facility] HPV 2016-01-20 Completed [facility] 00:00:00 [facility] HPV 2016-01-20 Completed [facility] 00:00:00 [facility] HPV 2016-01-20 Completed [facility] 00:00:00 [facility] HPV 2016-01-20 Completed [facility] 00:00:00 [facility] HPV 2016-01-20 Completed [facility] 00:00:00 [facility] HPV 2016-01-20 Completed [facility] 00:00:00 [facility] HPV 2016-01-20 Completed [facility] 00:00:00 [facility] HPV 2016-01-20 Completed [facility] 00:00:00 [facility] HPV 2016-01-20 Completed [facility] 00:00:00 [facility] HPV 2016-01-20 Completed [facility] 00:00:00 [facility] HPV 2016-01-20 Completed [facility] 00:00:00 [facility] HPV 2016-01-20 Completed [facility] 00:00:00 [facility] HPV 2016-01-20 Completed [facility] 00:00:00 [facility] HPV 2016-01-20 Completed [facility] 00:00:00 [facility] Influenza Virus 2015-07-08 Completed [facility]it y [facility] Vaccine Quad IM 3+ 00:00:00 [facility] HPV9 2015-07-08 Completed [facility] 00[facility]00:00 [facility] Influenza Virus 2015-07-08 Completed [facility] y of Vaccine Quad IM 3+ 00:00:00 [facility] HPV9 2015-07-08 Completed [facility] 00:00:00 [facility] Influenza Virus 2015-07-08 Completed [facility] of Vaccine Quad IM 3+ 00:00:00 [facility] HPV9 2015-07-08 Completed [facility] 00:00:00 [facility] Influenza Virus 2015-07-08 Completed [facility] y of Vaccine Quad IM 3+ 00:00:00 [facility] HPV9 2015-07-08 Completed [facility] 00:00:00 [facility] Influenza Virus 2015-07-08 Completed [facility] of Vaccine Quad IM 3+ 00:00:00 [facility] HPV9 2015-07-08 Completed [facility] 00:00:00 [facility] Influenza Virus 2015-07-08 Completed [facility] of Vaccine Quad IM 3+ 00:00:00 [facility] HPV9 2015-07-08 Completed [facility] 00:00:00 [facility] Influenza Virus 2015-07-08 Completed [facility] y of Vaccine Quad IM 3+ 00:00:00 [facility] HPV9 2015-07-08 Completed [facility] 00:00:00 [facility] Influenza Virus 2015-07-08 Completed [facility] y of Vaccine Quad IM 3+ 00:00:00 [facility] HPV9 2015-07-08 Completed [facility] 00:00:00 [facility] Influenza Virus 2015-07-08 Completed [facility] y of Vaccine Quad IM 3+ 00:00:00 [facility] HPV9 2015-07-08 Completed [facility] 00:00:00 [facility] Influenza Virus 2015-07-08 Completed [facility] y of Vaccine Quad IM 3+ 00:00:00 [facility] HPV9 2015-07-08 Completed [facility] 00:00:00 [facility] Influenza Virus 2015-07-08 Completed [facility] y of Vaccine Quad IM 3+ 00:00:00 [facility] HPV9 2015-07-08 Completed [facility] 00:00:00 [facility] Influenza Virus 2015-07-08 Completed [facility] of Vaccine Quad IM 3+ 00:00:00 [facility] HPV9 2015-07-08 Completed [facility] 00:00:00 [facility] Influenza Virus 2015-07-08 Completed [facility] of Vaccine Quad IM 3+ 00:00:00 [facility] HPV9 2015-07-08 Completed [facility] 00:00:00 [facility] Influenza Virus 2015-07-08 Completed [facility] y of Vaccine Quad IM 3+ 00:00:00 [facility] HPV9 2015-07-08 Completed [facility] 00:00:00 [facility] Influenza Virus 2015-07-08 Completed [facility] of Vaccine Quad IM 3+ 00:00:00 [facility] HPV9 2015-07-08 Completed [facility] 00:00:00 [facility] Influenza Virus 2015-07-08 Completed [facility] of Vaccine Quad IM 3+ 00:00:00 [facility] HPV9 2015-07-08 Completed [facility] 00:00:00 [facility] Influenza Virus 2015-07-08 Completed [facility] of Vaccine Quad IM 3+ 00:00:00 [facility] HPV9 2015-07-08 Completed [facility] 00:00:00 [facility] Influenza Virus 2015-07-08 Completed [facility] y of Vaccine Quad IM 3+ 00:00:00 [facility] HPV9 2015-07-08 Completed [facility] 00:00:00 [facility] Influenza Virus 2015-07-08 Completed [facility] y of Vaccine Quad IM 3+ 00:00:00 [facility] HPV9 2015-07-08 Completed [facility] 00:00:00 [facility] Influenza Virus 2015-07-08 Completed [facility] y of Vaccine Quad IM 3+ 00:00:00 [facility] HPV9 2015-07-08 Completed [facility] 00:00:00 [facility] Influenza Virus 2015-07-08 Completed [facility] of Vaccine Quad IM 3+ 00:00:00 [facility] HPV9 2015-07-08 Completed [facility] 00:00:00 [facility] Influenza Virus 2015-07-08 Completed [facility] of Vaccine Quad IM 3+ 00:00:00 [facility] HPV9 2015-07-08 Completed [facility] 00:00:00 [facility] Influenza Virus 2015-07-08 Completed [facility] y of Vaccine Quad IM 3+ 00:00:00 [facility] HPV9 2015-07-08 Completed [facility] 00:00:00 [facility] Influenza Virus 2015-07-08 Completed [facility] y of Vaccine Quad IM 3+ 00:00:00 [facility] HPV9 2015-07-08 Completed [facility] 00:00:00 [facility] Influenza Virus 2015-07-08 Completed [facility] of Vaccine Quad IM 3+ 00:00:00 [facility] HPV9 2015-07-08 Completed [facility] 00:00:00 [facility] Influenza Virus 2015-07-08 Completed [facility] of Vaccine Quad IM 3+ 00:00:00 [facility] HPV9 2015-07-08 Completed [facility] 00:00:00 [facility] Influenza Virus 2015-07-08 Completed [facility] of Vaccine Quad IM 3+ 00:00:00 [facility] HPV9 2015-07-08 Completed [facility] 00:00:00 [facility] Influenza Virus 2015-07-08 Completed [facility] y of Vaccine Quad IM 3+ 00:00:00 [facility] HPV9 2015-07-08 Completed [facility] 00:00:00 [facility] Influenza Virus 2015-07-08 Completed [facility] of Vaccine Quad IM 3+ 00:00:00 [facility] HPV9 2015-07-08 Completed [facility] 00:00:00 [facility] Influenza Virus 2015-07-08 Completed [facility] of Vaccine Quad IM 3+ 00:00:00 [facility] HPV9 2015-07-08 Completed [facility] 00:00:00 [facility] Influenza Virus 2015-07-08 Completed [facility] of Vaccine Quad IM 3+ 00:00:00 [facility] HPV9 2015-07-08 Completed [facility] 00:00:00 [facility] Influenza Virus 2015-07-08 Completed [facility] y of Vaccine Quad IM 3+ 00:00:00 [facility] HPV9 2015-07-08 Completed [facility] 00:00:00 [facility] Influenza Virus 2015-07-08 Completed [facility] y of Vaccine Quad IM 3+ 00:00:00 [facility] HPV9 2015-07-08 Completed [facility] 00:00:00 [facility] Influenza Virus 2015-07-08 Completed [facility] y of Vaccine Quad IM 3+ 00:00:00 [facility] HPV9 2015-07-08 Completed [facility] 00:00:00 [facility] Influenza Virus 2015-07-08 Completed [facility] y of Vaccine Quad IM 3+ 00:00:00 [facility] HPV9 2015-07-08 Completed [facility] 00:00:00 [facility] Influenza Virus 2015-07-08 Completed [facility] y of Vaccine Quad IM 3+ 00:00:00 [facility] HPV9 2015-07-08 Completed [facility] 00:00:00 [facility] Influenza Virus 2015-07-08 Completed [facility] y of Vaccine Quad IM 3+ 00:00:00 [facility] HPV9 2015-07-08 Completed [facility] 00:00:00 [facility] Influenza Virus 2015-07-08 Completed [facility] y of Vaccine Quad IM 3+ 00:00:00 [facility] HPV9 2015-07-08 Completed [facility] 00:00:00 [facility] Influenza Virus 2015-07-08 Completed [facility] y of Vaccine Quad IM 3+ 00:00:00 [facility] HPV9 2015-07-08 Completed [facility] 00[facility]00:00 [facility] Influenza Virus 2015-07-08 Completed [facility] of Vaccine Quad IM 3+ 00:00:00 [facility] HPV9 2015-07-08 Completed [facility] 00:00:00 [facility] Influenza Virus 2015-07-08 Completed [facility] y of Vaccine Quad IM 3+ 00:00:00 [facility] HPV9 2015-07-08 Completed [facility] 00:00:00 [facility] Influenza Virus 2015-07-08 Completed [facility] y of Vaccine Quad IM 3+ 00:00:00 [facility] HPV9 2015-07-08 Completed [facility] 00:00:00 [facility] Influenza Virus 2014-04-02 Completed [facility] y of Vaccine (3+ yrs) 00:00:00 [facility] Influenza Virus 2014-04-02 Completed [facility] y of Vaccine (3+ yrs) 00:00:00 [facility] Influenza Virus 2014-04-02 Completed [facility] y of Vaccine (3+ yrs) 00:00:00 [facility] Influenza Virus 2014-04-02 Completed [facility] y of Vaccine (3+ yrs) 00:00:00 [facility] Influenza Virus 2014-04-02 Completed [facility] y of Vaccine (3+ yrs) 00:00:00 [facility] Influenza Virus 2014-04-02 Completed [facility] y of Vaccine (3+ yrs) 00:00:00 [facility] Influenza Virus 2014-04-02 Completed [facility] y of Vaccine (3+ yrs) 00:00:00 [facility] Influenza Virus 2014-04-02 Completed [facility] y of Vaccine (3+ yrs) 00:00:00 [facility] Influenza Virus 2014-04-02 Completed [facility] y of Vaccine (3+ yrs) 00:00:00 [facility] Influenza Virus 2014-04-02 Completed [facility] y of Vaccine (3+ yrs) 00:00:00 [facility] Influenza Virus 2014-04-02 Completed [facility] of Vaccine (3+ yrs) 00:00:00 [facility] Influenza Virus 2014-04-02 Completed [facility] of Vaccine (3+ yrs) 00:00:00 [facility] Influenza Virus 2014-04-02 Completed [facility] y of Vaccine (3+ yrs) 00:00:00 [facility] Influenza Virus 2014-04-02 Completed [facility] of Vaccine (3+ yrs) 00:00:00 [facility] Influenza Virus 2014-04-02 Completed [facility] Vaccine (3+ yrs) 00:00:00 [facility] Influenza Virus 2014-04-02 Completed [facility] y of Vaccine (3+ yrs) 00:00:00 [facility] Influenza Virus 2014-04-02 Completed [facility] of Vaccine (3+ yrs) 00:00:00 [facility] Influenza Virus 2014-04-02 Completed [facility] of Vaccine (3+ yrs) 00:00:00 [facility] Influenza Virus 2014-04-02 Completed [facility] of Vaccine (3+ yrs) 00:00:00 [facility] Influenza Virus 2014-04-02 Completed [facility] Vaccine (3+ yrs) 00:00:00 [facility] Influenza Virus 2014-04-02 Completed [facility] y of Vaccine (3+ yrs) 00:00:00 [facility] Influenza Virus 2014-04-02 Completed [facility] of Vaccine (3+ yrs) 00:00:00 [facility] Influenza Virus 2014-04-02 Completed [facility] Vaccine (3+ yrs) 00:00:00 [facility] Influenza Virus 2014-04-02 Completed [facility] of Vaccine (3+ yrs) 00:00:00 [facility] Influenza Virus 2014-04-02 Completed [facility] Vaccine (3+ yrs) 00:00:00 [facility] Influenza Virus 2014-04-02 Completed [facility] Vaccine (3+ yrs) 00:00:00 [facility] Influenza Virus 2014-04-02 Completed [facility] Vaccine (3+ yrs) 00:00:00 [facility] Influenza Virus 2014-04-02 Completed [facility] of Vaccine (3+ yrs) 00:00:00 [facility] Influenza Virus 2014-04-02 Completed [facility] y of Vaccine (3+ yrs) 00:00:00 [facility] Influenza Virus 2014-04-02 Completed [facility] Vaccine (3+ yrs) 00:00:00 [facility] Influenza Virus 2014-04-02 Completed [facility] y [facility] Vaccine (3+ yrs) 00:00:00 [facility] Influenza Virus 2014-04-02 Completed [facility] of Vaccine (3+ yrs) 00:00:00 [facility] Influenza Virus 2014-04-02 Completed [facility] Vaccine (3+ yrs) 00:00:00 [facility] Influenza Virus 2014-04-02 Completed [facility] Vaccine (3+ yrs) 00:00:00 [facility] Influenza Virus 2014-04-02 Completed [facility] Vaccine (3+ yrs) 00:00:00 [facility] Influenza Virus 2014-04-02 Completed [facility] of Vaccine (3+ yrs) 00:00:00 [facility] Influenza Virus 2014-04-02 Completed [facility] Vaccine (3+ yrs) 00:00:00 [facility] Influenza Virus 2014-04-02 Completed [facility] y of Vaccine (3+ yrs) 00:00:00 [facility] Influenza Virus 2014-04-02 Completed [facility] Vaccine (3+ yrs) 00:00:00 [facility] Influenza Virus 2014-04-02 Completed [facility] of Vaccine (3+ yrs) 00:00:00 [facility] Influenza Virus 2014-04-02 Completed [facility] Vaccine (3+ yrs) 00:00:00 [facility] Influenza Virus 2014-04-02 Completed [facility] Vaccine (3+ yrs) 00:00:00 [facility] Influenza Virus 2013-05-22 Completed [facility] Vaccine (3+ yrs) 00:00:00 [facility] Meningococcal 2013-05-22 Completed [facility] of Polysaccharide 00:00:00 [facility] (groups A, C, Y and Branc h W-135) conjugate vaccine (MCV4P) TDAP 2013-05-22 Completed [facility] 00:00:00 [facility] Influenza Virus 2013-05-22 Completed [facility] of Vaccine (3+ yrs) 00:00:00 [facility] Meningococcal 2013-05-22 Completed [facility] Polysaccharide 00:00:00 [facility] (groups A, C, Y and Branc h W-135) conjugate vaccine (MCV4P) TDAP 2013-05-22 Completed [facility] 00:00:00 [facility] Influenza Virus 2013-05-22 Completed [facility] Vaccine (3+ yrs) 00:00:00 [facility] Meningococcal 2013-05-22 Completed [facility] Polysaccharide 00:00:00 [facility] (groups A, C, Y and Branc h W-135) conjugate vaccine (MCV4P) TDAP 2013-05-22 Completed [facility] 00:00:00 [facility] Influenza Virus 2013-05-22 Completed [facility] Vaccine (3+ yrs) 00:00:00 [facility] Meningococcal 2013-05-22 Completed [facility] Polysaccharide 00:00:00 [facility] (groups A, C, Y and Branc h W-135) conjugate vaccine (MCV4P) TDAP 2013-05-22 Completed [facility] 00:00:00 [facility] Influenza Virus 2013-05-22 Completed [facility] Vaccine (3+ yrs) 00:00:00 [facility] Meningococcal 2013-05-22 Completed [facility] Polysaccharide 00:00:00 [facility] (groups A, C, Y and Branc h W-135) conjugate vaccine (MCV4P) TDAP 2013-05-22 Completed [facility] 00:00:00 [facility] Influenza Virus 2013-05-22 Completed [facility] Vaccine (3+ yrs) 00:00:00 [facility] Meningococcal 2013-05-22 Completed [facility] Polysaccharide 00:00:00 [facility] (groups A, C, Y and Branc h W-135) conjugate vaccine (MCV4P) TDAP 2013-05-22 Completed [facility] 00:00:00 [facility] Influenza Virus 2013-05-22 Completed [facility] of Vaccine (3+ yrs) 00:00:00 [facility] Meningococcal 2013-05-22 Completed [facility] Polysaccharide 00:00:00 [facility] (groups A, C, Y and Branc h W-135) conjugate vaccine (MCV4P) TDAP 2013-05-22 Completed [facility] 00:00:00 [facility] Influenza Virus 2013-05-22 Completed [facility] Vaccine (3+ yrs) 00:00:00 [facility] Meningococcal 2013-05-22 Completed [facility] Polysaccharide 00:00:00 [facility] [place] [facility] (groups A, C, Y and Branc h W-135) conjugate vaccine (MCV4P) TDAP 2013-05-22 Completed [facility] 00:00:00 [facility] Influenza Virus 2013-05-22 Completed [facility] Vaccine (3+ yrs) 00:00:00 [facility] Meningococcal 2013-05-22 Completed [facility] Polysaccharide 00:00:00 [facility] (groups A, C, Y and Branc h W-135) conjugate vaccine (MCV4P) TDAP 2013-05-22 Completed [facility] 00:00:00 [facility] Influenza Virus 2013-05-22 Completed [facility] of Vaccine (3+ yrs) 00:00:00 [facility] Meningococcal 2013-05-22 Completed [facility] Polysaccharide 00:00:00 [facility] (groups A, C, Y and Branc h W-135) conjugate vaccine (MCV4P) TDAP 2013-05-22 Completed [facility] 00:00:00 [facility] Influenza Virus 2013-05-22 Completed [facility] Vaccine (3+ yrs) 00:00:00 [facility] Meningococcal 2013-05-22 Completed [facility] Polysaccharide 00:00:00 [facility] (groups A, C, Y and Branc h W-135) conjugate vaccine (MCV4P) TDAP 2013-05-22 Completed [facility] 00:00:00 [facility] Influenza Virus 2013-05-22 Completed [facility] of Vaccine (3+ yrs) 00:00:00 [facility] Meningococcal 2013-05-22 Completed [facility] Polysaccharide 00:00:00 [facility] [place] [facility] (groups A, C, Y and Branc h W-135) conjugate vaccine (MCV4P) TDAP 2013-05-22 Completed [facility] 00:00:00 [facility] Influenza Virus 2013-05-22 Completed [facility] Vaccine (3+ yrs) 00:00:00 [facility] Meningococcal 2013-05-22 Completed [facility] Polysaccharide 00:00:00 [facility] [place] [facility] (groups A, C, Y and Branc h W-135) conjugate vaccine (MCV4P) TDAP 2013-05-22 Completed [facility] 00:00:00 [facility] Influenza Virus 2013-05-22 Completed [facility] Vaccine (3+ yrs) 00:00:00 [facility] Meningococcal 2013-05-22 Completed [facility] Polysaccharide 00:00:00 [facility] (groups A, C, Y and Branc h W-135) conjugate vaccine (MCV4P) TDAP 2013-05-22 Completed [facility] 00:00:00 [facility] Influenza Virus 2013-05-22 Completed [facility] Vaccine (3+ yrs) 00:00:00 [facility] Meningococcal 2013-05-22 Completed [facility] Polysaccharide 00:00:00 [facility] [place] [facility] (groups A, C, Y and Branc h W-135) conjugate vaccine (MCV4P) TDAP 2013-05-22 Completed [facility] 00:00:00 [facility] Influenza Virus 2013-05-22 Completed [facility] Vaccine (3+ yrs) 00:00:00 [facility] Meningococcal 2013-05-22 Completed [facility] Polysaccharide 00:00:00 [facility] [place] [facility] (groups A, C, Y and Branc h W-135) conjugate vaccine (MCV4P) TDAP 2013-05-22 Completed [facility] 00:00:00 [facility] Influenza Virus 2013-05-22 Completed [facility] Vaccine (3+ yrs) 00:00:00 [facility] Meningococcal 2013-05-22 Completed [facility] Polysaccharide 00:00:00 [place] [facility] (groups A, C, Y and Branc h W-135) conjugate vaccine (MCV4P) TDAP 2013-05-22 Completed [facility] 00:00:00 [facility] Influenza Virus 2013-05-22 Completed [facility] Vaccine (3+ yrs) 00:00:00 [facility] Meningococcal 2013-05-22 Completed [facility] Polysaccharide 00:00:00 [place] [facility] (groups A, C, Y and Branc h W-135) conjugate vaccine (MCV4P) TDAP 2013-05-22 Completed [facility] 00:00:00 [facility] Influenza Virus 2013-05-22 Completed [facility] Vaccine (3+ yrs) 00:00:00 [facility] Meningococcal 2013-05-22 Completed [facility] Polysaccharide 00:00:00 [place] [facility] (groups A, C, Y and Branc h W-135) conjugate vaccine (MCV4P) TDAP 2013-05-22 Completed [facility] 00:00:00 [facility] Influenza Virus 2013-05-22 Completed [facility] Vaccine (3+ yrs) 00:00:00 [facility] Meningococcal 2013-05-22 Completed [facility] Polysaccharide 00:00:00 [place] [facility] (groups A, C, Y and Branc h W-135) conjugate vaccine (MCV4P) TDAP 2013-05-22 Completed [facility] 00:00:00 [facility] Influenza Virus 2013-05-22 Completed [facility] Vaccine (3+ yrs) 00:00:00 [facility] Meningococcal 2013-05-22 Completed [facility] Polysaccharide 00:00:00 [facility] [place] [facility] (groups A, C, Y and Branc h W-135) conjugate vaccine (MCV4P) TDAP 2013-05-22 Completed [facility] 00:00:00 [facility] Influenza Virus 2013-05-22 Completed [facility] Vaccine (3+ yrs) 00:00:00 [facility] Meningococcal 2013-05-22 Completed [facility] Polysaccharide 00:00:00 [place] [facility] (groups A, C, Y and Branc h W-135) conjugate vaccine (MCV4P) TDAP 2013-05-22 Completed [facility] 00:00:00 [facility] Influenza Virus 2013-05-22 Completed [facility] Vaccine (3+ yrs) 00:00:00 [facility] Meningococcal 2013-05-22 Completed [facility] Polysaccharide 00:00:00 [place] [facility] (groups A, C, Y and Branc h W-135) conjugate vaccine (MCV4P) TDAP 2013-05-22 Completed [facility] 00:00:00 [facility] Influenza Virus 2013-05-22 Completed [facility] Vaccine (3+ yrs) 00:00:00 [facility] Meningococcal 2013-05-22 Completed [facility] Polysaccharide 00:00:00 [place] [facility] (groups A, C, Y and Branc h W-135) conjugate vaccine (MCV4P) TDAP 2013-05-22 Completed [facility] 00:00:00 [facility] Influenza Virus 2013-05-22 Completed [facility] Vaccine (3+ yrs) 00:00:00 [facility] Meningococcal 2013-05-22 Completed [facility] Polysaccharide 00:00:00 [place] [facility] (groups A, C, Y and Branc h W-135) conjugate vaccine (MCV4P) TDAP 2013-05-22 Completed [facility] 00:00:00 [facility] Influenza Virus 2013-05-22 Completed [facility] Vaccine (3+ yrs) 00:00:00 [facility] Meningococcal 2013-05-22 Completed [facility] Polysaccharide 00:00:00 [place] [facility] (groups A, C, Y and Branc h W-135) conjugate vaccine (MCV4P) TDAP 2013-05-22 Completed [facility] 00:00:00 [facility] Influenza Virus 2013-05-22 Completed [facility] Vaccine (3+ yrs) 00:00:00 [facility] Meningococcal 2013-05-22 Completed [facility] Polysaccharide 00:00:00 [place] [facility] (groups A, C, Y and Branc h W-135) conjugate vaccine (MCV4P) TDAP 2013-05-22 Completed [facility] 00:00:00 [facility] Influenza Virus 2013-05-22 Completed [facility] Vaccine (3+ yrs) 00:00:00 [facility] Meningococcal 2013-05-22 Completed [facility] Polysaccharide 00:00:00 [place] [facility] (groups A, C, Y and Branc h W-135) conjugate vaccine (MCV4P) TDAP 2013-05-22 Completed [facility] 00:00:00 [facility] Influenza Virus 2013-05-22 Completed [facility] Vaccine (3+ yrs) 00:00:00 [facility] Meningococcal 2013-05-22 Completed [facility] Polysaccharide 00:00:00 [place] [facility] (groups A, C, Y and Branc h W-135) conjugate vaccine (MCV4P) TDAP 2013-05-22 Completed [facility] 00:00:00 [facility] Influenza Virus 2013-05-22 Completed [facility] Vaccine (3+ yrs) 00:00:00 [facility] Meningococcal 2013-05-22 Completed [facility] Polysaccharide 00:00:00 [place] [facility] (groups A, C, Y and Branc h W-135) conjugate vaccine (MCV4P) TDAP 2013-05-22 Completed [facility] 00:00:00 [facility] Influenza Virus 2013-05-22 Completed [facility] Vaccine (3+ yrs) 00:00:00 [facility] Meningococcal 2013-05-22 Completed [facility] Polysaccharide 00:00:00 [place] [facility] (groups A, C, Y and Branc h W-135) conjugate vaccine (MCV4P) TDAP 2013-05-22 Completed [facility] 00:00:00 [facility] Influenza Virus 2013-05-22 Completed [facility] Vaccine (3+ yrs) 00:00:00 [facility] Meningococcal 2013-05-22 Completed [facility] Polysaccharide 00:00:00 [place] [facility] (groups A, C, Y and Branc h W-135) conjugate vaccine (MCV4P) TDAP 2013-05-22 Completed [facility] 00:00:00 [facility] Influenza Virus 2013-05-22 Completed [facility] Vaccine (3+ yrs) 00:00:00 [facility] Meningococcal 2013-05-22 Completed [facility] Polysaccharide 00:00:00 [place] [facility] (groups A, C, Y and Branc h W-135) conjugate vaccine (MCV4P) TDAP 2013-05-22 Completed [facility] 00:00:00 [facility] Influenza Virus 2013-05-22 Completed [facility] Vaccine (3+ yrs) 00:00:00 [facility] Meningococcal 2013-05-22 Completed [facility] Polysaccharide 00:00:00 [place] [facility] (groups A, C, Y and Branc h W-135) conjugate vaccine (MCV4P) TDAP 2013-05-22 Completed [facility] 00:00:00 [facility] Influenza Virus 2013-05-22 Completed [facility] Vaccine (3+ yrs) 00:00:00 [facility] Meningococcal 2013-05-22 Completed [facility] Polysaccharide 00:00:00 [facility] (groups A, C, Y and Branc h W-135) conjugate vaccine (MCV4P) TDAP 2013-05-22 Completed [facility] 00:00:00 [facility] Influenza Virus 2013-05-22 Completed [facility] Vaccine (3+ yrs) 00:00:00 [facility] Meningococcal 2013-05-22 Completed [facility] Polysaccharide 00:00:00 [place] [facility] (groups A, C, Y and Branc h W-135) conjugate vaccine (MCV4P) TDAP 2013-05-22 Completed [facility] 00:00:00 [facility] Influenza Virus 2013-05-22 Completed [facility] Vaccine (3+ yrs) 00:00:00 [facility] Meningococcal 2013-05-22 Completed [facility] Polysaccharide 00:00:00 [place] [facility] (groups A, C, Y and Branc h W-135) conjugate vaccine (MCV4P) TDAP 2013-05-22 Completed [facility] 00:00:00 [facility] Influenza Virus 2013-05-22 Completed [facility] Vaccine (3+ yrs) 00:00:00 [facility] Meningococcal 2013-05-22 Completed [facility] Polysaccharide 00:00:00 [place] [facility] (groups A, C, Y and Branc h W-135) conjugate vaccine (MCV4P) TDAP 2013-05-22 Completed [facility] 00:00:00 [facility] Influenza Virus 2013-05-22 Completed [facility] Vaccine (3+ yrs) 00:00:00 [facility] Meningococcal 2013-05-22 Completed [facility] Polysaccharide 00:00:00 [place] [facility] (groups A, C, Y and Branc h W-135) conjugate vaccine (MCV4P) TDAP 2013-05-22 Completed [facility] 00:00:00 [facility] Influenza Virus 2013-05-22 Completed [facility] Vaccine (3+ yrs) 00:00:00 [facility] Meningococcal 2013-05-22 Completed [facility] Polysaccharide 00:00:00 [place] [facility] (groups A, C, Y and Branc h W-135) conjugate vaccine (MCV4P) TDAP 2013-05-22 Completed [facility] 00:00:00 [facility] Influenza Virus 2013-05-22 Completed [facility] Vaccine (3+ yrs) 00:00:00 [facility] Meningococcal 2013-05-22 Completed [facility] Polysaccharide 00:00:00 [place] [facility] (groups A, C, Y and Branc h W-135) conjugate vaccine (MCV4P) TDAP 2013-05-22 Completed [facility] 00:00:00 [facility] Influenza Virus 2013-05-22 Completed [facility] Vaccine (3+ yrs) 00:00:00 [facility] Meningococcal 2013-05-22 Completed [facility] Polysaccharide 00:00:00 [place] [facility] (groups A, C, Y and Branc h W-135) conjugate vaccine (MCV4P) TDAP 2013-05-22 Completed [facility] 00:00:00 [facility] Influenza Virus 2012-06-13 Completed [facility] Vaccine 00:00:00 [facility] Influenza Virus 2012-06-13 Completed [facility] Vaccine 00:00:00 [facility] Influenza Virus 2012-06-13 Completed [facility] Vaccine 00:00:00 [facility] Influenza Virus 2012-06-13 Completed [facility] Vaccine 00:00:00 [facility] Influenza Virus 2012-06-13 Completed [facility] Vaccine 00:00:00 [facility] Influenza Virus 2012-06-13 Completed [facility] Vaccine 00:00:00 [facility] Influenza Virus 2012-06-13 Completed [facility] Vaccine 00:00:00 [facility] Influenza Virus 2012-06-13 Completed [facility] Vaccine 00:00:00 [facility] Influenza Virus 2012-06-13 Completed [facility] Vaccine 00:00:00 [facility] Influenza Virus 2012-06-13 Completed [facility] Vaccine 00:00:00 [facility] Influenza Virus 2012-06-13 Completed [facility] Vaccine 00:00:00 [facility] Influenza Virus 2012-06-13 Completed [facility] Vaccine 00:00:00 [facility] Influenza Virus 2012-06-13 Completed [facility] Vaccine 00:00:00 [facility] Influenza Virus 2012-06-13 Completed [facility] Vaccine 00:00:00 [facility] Influenza Virus 2012-06-13 Completed [facility] Vaccine 00:00:00 [facility] Influenza Virus 2012-06-13 Completed [facility] Vaccine 00:00:00 [facility] Influenza Virus 2012-06-13 Completed [facility] Vaccine 00:00:00 [facility] Influenza Virus 2012-06-13 Completed [facility] Vaccine 00:00:00 [facility] Influenza Virus 2012-06-13 Completed [facility] Vaccine 00:00:00 [facility] Influenza Virus 2012-06-13 Completed [facility] Vaccine 00:00:00 [facility] Influenza Virus 2012-06-13 Completed [facility] Vaccine 00:00:00 [facility] Influenza Virus 2012-06-13 Completed [facility] Vaccine 00:00:00 [facility] Influenza Virus 2012-06-13 Completed [facility] Vaccine 00:00:00 [facility] Influenza Virus 2012-06-13 Completed [facility] Vaccine 00:00:00 [facility] Influenza Virus 2012-06-13 Completed [facility] Vaccine 00:00:00 [facility] Influenza Virus 2012-06-13 Completed [facility] Vaccine 00:00:00 [facility] Influenza Virus 2012-06-13 Completed [facility] Vaccine 00:00:00 [facility] Influenza Virus 2012-06-13 Completed [facility] Vaccine 00:00:00 [facility] Influenza Virus 2012-06-13 Completed [facility] Vaccine 00:00:00 [facility] Influenza Virus 2012-06-13 Completed [facility] Vaccine 00:00:00 [facility] Influenza Virus 2012-06-13 Completed [facility] Vaccine 00:00:00 [facility] Influenza Virus 2012-06-13 Completed [facility] Vaccine 00:00:00 [facility] Influenza Virus 2012-06-13 Completed [facility] Vaccine 00:00:00 [facility] Influenza Virus 2012-06-13 Completed [facility] Vaccine 00:00:00 [facility] Influenza Virus 2012-06-13 Completed [facility] Vaccine 00:00:00 [facility] Influenza Virus 2012-06-13 Completed [facility] Vaccine 00:00:00 [facility] Influenza Virus 2012-06-13 Completed [facility] Vaccine 00:00:00 [facility] Influenza Virus 2012-06-13 Completed [facility] Vaccine 00:00:00 [facility] Influenza Virus 2012-06-13 Completed [facility] Vaccine 00:00:00 [facility] Influenza Virus 2012-06-13 Completed [facility] Vaccine 00:00:00 [facility] Influenza Virus 2012-06-13 Completed [facility] Vaccine 00:00:00 [facility] Influenza Virus 2012-06-13 Completed [facility] Vaccine 00:00:00 [facility] Influenza Virus 2011-05-18 Completed [facility] Vaccine 00:00:00 [facility] Influenza Virus 2011-05-18 Completed [facility] Vaccine 00:00:00 [facility] Influenza Virus 2011-05-18 Completed [facility] Vaccine 00:00:00 [facility] Influenza Virus 2011-05-18 Completed [facility] Vaccine 00:00:00 [facility] Influenza Virus 2011-05-18 Completed [facility] Vaccine 00:00:00 [facility] Influenza Virus 2011-05-18 Completed [facility] Vaccine 00:00:00 [facility] Influenza Virus 2011-05-18 Completed [facility] Vaccine 00:00:00 [facility] Influenza Virus 2011-05-18 Completed [facility] Vaccine 00:00:00 [facility] Influenza Virus 2011-05-18 Completed [facility] Vaccine 00:00:00 [facility] Influenza Virus 2011-05-18 Completed [facility] Vaccine 00:00:00 [facility] Influenza Virus 2011-05-18 Completed [facility] Vaccine 00:00:00 [facility] Influenza Virus 2011-05-18 Completed [facility] Vaccine 00:00:00 [facility] Influenza Virus 2011-05-18 Completed [facility] Vaccine 00:00:00 [facility] Influenza Virus 2011-05-18 Completed [facility] Vaccine 00:00:00 [facility] Influenza Virus 2011-05-18 Completed [facility] Vaccine 00:00:00 [facility] Influenza Virus 2011-05-18 Completed [facility] Vaccine 00:00:00 [facility] Influenza Virus 2011-05-18 Completed [facility] Vaccine 00:00:00 [facility] Influenza Virus 2011-05-18 Completed [facility] Vaccine 00:00:00 [facility] Influenza Virus 2011-05-18 Completed [facility] Vaccine 00:00:00 [facility] Influenza Virus 2011-05-18 Completed [facility] Vaccine 00:00:00 [facility] Influenza Virus 2011-05-18 Completed [facility] Vaccine 00:00:00 [facility] Influenza Virus 2011-05-18 Completed [facility] Vaccine 00:00:00 [facility] Influenza Virus 2011-05-18 Completed [facility] Vaccine 00:00:00 [facility] Influenza Virus 2011-05-18 Completed [facility] Vaccine 00:00:00 [facility] Influenza Virus 2011-05-18 Completed [facility] Vaccine 00:00:00 [facility] Influenza Virus 2011-05-18 Completed [facility] Vaccine 00:00:00 [facility] Influenza Virus 2011-05-18 Completed [facility] Vaccine 00:00:00 [facility] Influenza Virus 2011-05-18 Completed [facility] Vaccine 00:00:00 [facility] Influenza Virus 2011-05-18 Completed [facility] Vaccine 00:00:00 [facility] Influenza Virus 2011-05-18 Completed [facility] Vaccine 00:00:00 [facility] Influenza Virus 2011-05-18 Completed [facility] Vaccine 00:00:00 [facility] Influenza Virus 2011-05-18 Completed [facility] Vaccine 00:00:00 [facility] Influenza Virus 2011-05-18 Completed [facility] Vaccine 00:00:00 [facility] Influenza Virus 2011-05-18 Completed [facility] Vaccine 00:00:00 [facility] Influenza Virus 2011-05-18 Completed [facility] Vaccine 00:00:00 [facility] Influenza Virus 2011-05-18 Completed [facility] Vaccine 00:00:00 [facility] Influenza Virus 2011-05-18 Completed [facility] Vaccine 00:00:00 [facility] Influenza Virus 2011-05-18 Completed [facility] Vaccine 00:00:00 [facility] Influenza Virus 2011-05-18 Completed [facility] Vaccine 00:00:00 [facility] Influenza Virus 2011-05-18 Completed [facility] Vaccine 00:00:00 [facility] Influenza Virus 2011-05-18 Completed [facility] Vaccine 00:00:00 [facility] Influenza Virus 2011-05-18 Completed [facility] Vaccine 00:00:00 [facility] Influenza Virus 2010-05-26 Completed [facility] Vaccine 00:00:00 [facility] Influenza Virus 2010-05-26 Completed [facility] Vaccine 00:00:00 [facility] Influenza Virus 2010-05-26 Completed [facility] Vaccine 00:00:00 [facility] Influenza Virus 2010-05-26 Completed [facility] Vaccine 00:00:00 [facility] Influenza Virus 2010-05-26 Completed [facility] Vaccine 00:00:00 [facility] Influenza Virus 2010-05-26 Completed [facility] Vaccine 00:00:00 [facility] Influenza Virus 2010-05-26 Completed [facility] Vaccine 00:00:00 [facility] Influenza Virus 2010-05-26 Completed [facility] Vaccine 00:00:00 [facility] Influenza Virus 2010-05-26 Completed [facility] Vaccine 00:00:00 [facility] Influenza Virus 2010-05-26 Completed [facility] Vaccine 00:00:00 [facility] Influenza Virus 2010-05-26 Completed [facility] Vaccine 00:00:00 [facility] Influenza Virus 2010-05-26 Completed [facility] Vaccine 00:00:00 [facility] Influenza Virus 2010-05-26 Completed [facility] Vaccine 00:00:00 [facility] Influenza Virus 2010-05-26 Completed [facility] Vaccine 00:00:00 [facility] Influenza Virus 2010-05-26 Completed [facility] Vaccine 00:00:00 [facility] Influenza Virus 2010-05-26 Completed [facility] Vaccine 00:00:00 [facility] Influenza Virus 2010-05-26 Completed [facility] Vaccine 00:00:00 [facility] Influenza Virus 2010-05-26 Completed [facility] Vaccine 00:00:00 [facility] Influenza Virus 2010-05-26 Completed [facility] Vaccine 00:00:00 [facility] Influenza Virus 2010-05-26 Completed [facility] Vaccine 00:00:00 [facility] Influenza Virus 2010-05-26 Completed [facility] Vaccine 00:00:00 [facility] Influenza Virus 2010-05-26 Completed [facility] Vaccine 00:00:00 [facility] Influenza Virus 2010-05-26 Completed [facility] Vaccine 00:00:00 [facility] Influenza Virus 2010-05-26 Completed [facility] Vaccine 00:00:00 [facility] Influenza Virus 2010-05-26 Completed [facility] Vaccine 00:00:00 [facility] Influenza Virus 2010-05-26 Completed [facility] Vaccine 00:00:00 [facility] Influenza Virus 2010-05-26 Completed [facility] Vaccine 00:00:00 [facility] Influenza Virus 2010-05-26 Completed [facility] Vaccine 00:00:00 [facility] [facility] Influenza Virus 2010-05-26 Completed [facility] Vaccine 00:00:00 [facility] Influenza Virus 2010-05-26 Completed [facility] Vaccine 00:00:00 [facility] Influenza Virus 2010-05-26 Completed [facility] Vaccine 00:00:00 [facility] Influenza Virus 2010-05-26 Completed [facility] Vaccine 00:00:00 [facility] Influenza Virus 2010-05-26 Completed [facility] Vaccine 00:00:00 [facility] Influenza Virus 2010-05-26 Completed [facility] Vaccine 00:00:00 [facility] Influenza Virus 2010-05-26 Completed [facility] Vaccine 00:00:00 [facility] Influenza Virus 2010-05-26 Completed [facility] Vaccine 00:00:00 [facility] Influenza Virus 2010-05-26 Completed [facility] Vaccine 00:00:00 [facility] Influenza Virus 2010-05-26 Completed [facility] Vaccine 00:00:00 [facility] Influenza Virus 2010-05-26 Completed [facility] Vaccine 00:00:00 [facility] Influenza Virus 2010-05-26 Completed [facility] Vaccine 00:00:00 [facility] Influenza Virus 2010-05-26 Completed [facility] Vaccine 00:00:00 [facility] Influenza Virus 2010-05-26 Completed [facility] Vaccine 00:00:00 [facility] Influenza Virus 2009-06-23 Completed [facility] Vaccine 00:00:00 [facility] Influenza Virus 2009-06-23 Completed [facility] Vaccine 00:00:00 [facility] Influenza Virus 2009-06-23 Completed [facility] Vaccine 00:00:00 [facility] Influenza Virus 2009-06-23 Completed [facility] Vaccine 00:00:00 [facility] Influenza Virus 2009-06-23 Completed [facility] Vaccine 00:00:00 [facility] Influenza Virus 2009-06-23 Completed [facility] Vaccine 00:00:00 [facility] Influenza Virus 2009-06-23 Completed [facility] Vaccine 00:00:00 [facility] Influenza Virus 2009-06-23 Completed [facility] Vaccine 00:00:00 [facility] Influenza Virus 2009-06-23 Completed [facility] Vaccine 00:00:00 [facility] Influenza Virus 2009-06-23 Completed [facility] Vaccine 00:00:00 [facility] Influenza Virus 2009-06-23 Completed [facility] Vaccine 00:00:00 [facility] Influenza Virus 2009-06-23 Completed [facility] Vaccine 00[facility]00:00 [facility] Influenza Virus 2009-06-23 Completed [facility] Vaccine 00:00:00 [facility] Influenza Virus 2009-06-23 Completed [facility] Vaccine 00:00:00 [facility] Influenza Virus 2009-06-23 Completed [facility] Vaccine 00:00:00 [facility] Influenza Virus 2009-06-23 Completed [facility] Vaccine 00:00:00 [facility] Influenza Virus 2009-06-23 Completed [facility] Vaccine 00:00:00 [facility] Influenza Virus 2009-06-23 Completed [facility] Vaccine 00:00:00 [facility] Influenza Virus 2009-06-23 Completed [facility] Vaccine 00:00:00 [facility] Influenza Virus 2009-06-23 Completed [facility] Vaccine 00:00:00 [facility] Influenza Virus 2009-06-23 Completed [facility] Vaccine 00:00:00 [facility] Influenza Virus 2009-06-23 Completed [facility] Vaccine 00:00:00 [facility] Influenza Virus 2009-06-23 Completed [facility] Vaccine 00:00:00 [facility] Influenza Virus 2009-06-23 Completed [facility] Vaccine 00:00:00 [facility] Influenza Virus 2009-06-23 Completed [facility] Vaccine 00:00:00 [facility] Influenza Virus 2009-06-23 Completed [facility] Vaccine 00:00:00 [facility] Influenza Virus 2009-06-23 Completed [facility] Vaccine 00:00:00 [facility] Influenza Virus 2009-06-23 Completed [facility] Vaccine 00:00:00 [facility] Influenza Virus 2009-06-23 Completed [facility] Vaccine 00:00:00 [facility] Influenza Virus 2009-06-23 Completed [facility] Vaccine 00:00:00 [facility] Influenza Virus 2009-06-23 Completed [facility] Vaccine 00:00:00 [facility] Influenza Virus 2009-06-23 Completed [facility] Vaccine 00:00:00 [facility] Influenza Virus 2009-06-23 Completed [facility] Vaccine 00:00:00 [facility] Influenza Virus 2009-06-23 Completed [facility] Vaccine 00:00:00 [facility] Influenza Virus 2009-06-23 Completed [facility] Vaccine 00:00:00 [facility] Influenza Virus 2009-06-23 Completed [facility] Vaccine 00:00:00 [facility] Influenza Virus 2009-06-23 Completed [facility] Vaccine 00:00:00 [facility] Influenza Virus 2009-06-23 Completed [facility] Vaccine 00:00:00 [facility] Influenza Virus 2009-06-23 Completed [facility] Vaccine 00:00:00 [facility] Influenza Virus 2009-06-23 Completed [facility] Vaccine 00:00:00 [facility] Influenza Virus 2009-06-23 Completed [facility] Vaccine 00:00:00 [facility] Influenza Virus 2009-06-23 Completed [facility] Vaccine 00:00:00 [facility] Influenza Virus 2009-05-20 Completed [facility] Vaccine 00:00:00 [facility] Influenza Virus 2009-05-20 Completed [facility] Vaccine 00:00:00 [facility] Influenza Virus 2009-05-20 Completed [facility] Vaccine 00:00:00 [facility] Influenza Virus 2009-05-20 Completed [facility] Vaccine 00:00:00 [facility] Influenza Virus 2009-05-20 Completed [facility] Vaccine 00:00:00 [facility] Influenza Virus 2009-05-20 Completed [facility] Vaccine 00:00:00 [facility] Influenza Virus 2009-05-20 Completed [facility] Vaccine 00:00:00 [facility] Influenza Virus 2009-05-20 Completed [facility] Vaccine 00:00:00 [facility] Influenza Virus 2009-05-20 Completed [facility] Vaccine 00:00:00 [facility] Influenza Virus 2009-05-20 Completed [facility] Vaccine 00:00:00 [facility] Influenza Virus 2009-05-20 Completed [facility] Vaccine 00:00:00 [facility] Influenza Virus 2009-05-20 Completed [facility] Vaccine 00:00:00 [facility] Influenza Virus 2009-05-20 Completed [facility] Vaccine 00:00:00 [facility] Influenza Virus 2009-05-20 Completed [facility] Vaccine 00:00:00 [facility] Influenza Virus 2009-05-20 Completed [facility] Vaccine 00:00:00 [facility] Influenza Virus 2009-05-20 Completed [facility] Vaccine 00:00:00 [facility] Influenza Virus 2009-05-20 Completed [facility] Vaccine 00:00:00 [facility] Influenza Virus 2009-05-20 Completed [facility] Vaccine 00:00:00 [facility] Influenza Virus 2009-05-20 Completed [facility] Vaccine 00:00:00 [facility] Influenza Virus 2009-05-20 Completed [facility] Vaccine 00:00:00 [facility] Influenza Virus 2009-05-20 Completed [facility] Vaccine 00:00:00 [facility] Influenza Virus 2009-05-20 Completed [facility] Vaccine 00:00:00 [facility] Influenza Virus 2009-05-20 Completed [facility] Vaccine 00:00:00 [facility] Influenza Virus 2009-05-20 Completed [facility] Vaccine 00:00:00 [facility] Influenza Virus 2009-05-20 Completed [facility] Vaccine 00:00:00 [facility] Influenza Virus 2009-05-20 Completed [facility] Vaccine 00:00:00 [facility] Influenza Virus 2009-05-20 Completed [facility] Vaccine 00:00:00 [facility] Influenza Virus 2009-05-20 Completed [facility] Vaccine 00:00:00 [facility] Influenza Virus 2009-05-20 Completed [facility] Vaccine 00:00:00 [facility] Influenza Virus 2009-05-20 Completed [facility] Vaccine 00:00:00 [facility] Influenza Virus 2009-05-20 Completed [facility] Vaccine 00:00:00 [facility] Influenza Virus 2009-05-20 Completed [facility] Vaccine 00:00:00 [facility] Influenza Virus 2009-05-20 Completed [facility] Vaccine 00:00:00 [facility] Influenza Virus 2009-05-20 Completed [facility] Vaccine 00:00:00 [facility] Influenza Virus 2009-05-20 Completed [facility] Vaccine 00:00:00 [facility] Influenza Virus 2009-05-20 Completed [facility] Vaccine 00:00:00 [facility] Influenza Virus 2009-05-20 Completed [facility] Vaccine 00:00:00 [facility] Influenza Virus 2009-05-20 Completed [facility] Vaccine 00:00:00 [facility] Influenza Virus 2009-05-20 Completed [facility] Vaccine 00:00:00 [facility] Influenza Virus 2009-05-20 Completed [facility] Vaccine 00:00:00 [facility] Influenza Virus 2009-05-20 Completed [facility] Vaccine 00:00:00 [facility] Influenza Virus 2009-05-20 Completed [facility] Vaccine 00:00:00 [facility] Influenza Virus 2007-06-01 Completed [facility] Vaccine 00:00:00 [facility] Influenza Virus 2007-06-01 Completed [facility] Vaccine 00:00:00 [facility] Influenza Virus 2007-06-01 Completed [facility] Vaccine 00:00:00 [facility] Influenza Virus 2007-06-01 Completed [facility] Vaccine 00:00:00 [facility] Influenza Virus 2007-06-01 Completed [facility] Vaccine 00:00:00 [facility] Influenza Virus 2007-06-01 Completed [facility] Vaccine 00:00:00 [facility] Influenza Virus 2007-06-01 Completed [facility] Vaccine 00:00:00 [facility] Influenza Virus 2007-06-01 Completed [facility] Vaccine 00:00:00 [facility] Influenza Virus 2007-06-01 Completed [facility] Vaccine 00:00:00 [facility] Influenza Virus 2007-06-01 Completed [facility] Vaccine 00:00:00 [facility] Influenza Virus 2007-06-01 Completed [facility] Vaccine 00:00:00 [facility] Influenza Virus 2007-06-01 Completed [facility] Vaccine 00:00:00 [facility] Influenza Virus 2007-06-01 Completed [facility] Vaccine 00:00:00 [facility] Influenza Virus 2007-06-01 Completed [facility] Vaccine 00:00:00 [facility] Influenza Virus 2007-06-01 Completed [facility] Vaccine 00:00:00 [facility] Influenza Virus 2007-06-01 Completed [facility] Vaccine 00:00:00 [facility] Influenza Virus 2007-06-01 Completed [facility] Vaccine 00:00:00 [facility] Influenza Virus 2007-06-01 Completed [facility] Vaccine 00:00:00 [facility] Influenza Virus 2007-06-01 Completed [facility] Vaccine 00:00:00 [facility] Influenza Virus 2007-06-01 Completed [facility] Vaccine 00:00:00 [facility] Influenza Virus 2007-06-01 Completed [facility] Vaccine 00:00:00 [facility] Influenza Virus 2007-06-01 Completed [facility] Vaccine 00:00:00 [facility] Influenza Virus 2007-06-01 Completed [facility] Vaccine 00:00:00 [facility] Influenza Virus 2007-06-01 Completed [facility] Vaccine 00:00:00 [facility] Influenza Virus 2007-06-01 Completed [facility] Vaccine 00:00:00 [facility] Influenza Virus 2007-06-01 Completed [facility] Vaccine 00:00:00 [facility] Influenza Virus 2007-06-01 Completed [facility] Vaccine 00:00:00 [facility] Influenza Virus 2007-06-01 Completed [facility] Vaccine 00:00:00 [facility] Influenza Virus 2007-06-01 Completed [facility] Vaccine 00:00:00 [facility] Influenza Virus 2007-06-01 Completed [facility] Vaccine 00:00:00 [facility] Influenza Virus 2007-06-01 Completed [facility] Vaccine 00:00:00 [facility] Influenza Virus 2007-06-01 Completed [facility] Vaccine 00:00:00 [facility] Influenza Virus 2007-06-01 Completed [facility] Vaccine 00:00:00 [facility] Influenza Virus 2007-06-01 Completed [facility] Vaccine 00:00:00 [facility] Influenza Virus 2007-06-01 Completed [facility] Vaccine 00:00:00 [facility] Influenza Virus 2007-06-01 Completed [facility] Vaccine 00:00:00 [facility] Influenza Virus 2007-06-01 Completed [facility] Vaccine 00:00:00 [facility] Influenza Virus 2007-06-01 Completed [facility] Vaccine 00:00:00 [facility] Influenza Virus 2007-06-01 Completed [facility] Vaccine 00:00:00 [facility] Influenza Virus 2007-06-01 Completed [facility] Vaccine 00:00:00 [facility] Influenza Virus 2007-06-01 Completed [facility] Vaccine 00:00:00 [facility] Influenza Virus 2007-06-01 Completed [facility] Vaccine 00:00:00 [facility] DTAP 2006-05-24 Completed [facility] 00:00:00 [facility] Proquad 2006-05-24 Completed [facility] of (MMR/VARICELLA) 00:00:00 [facility] Polio (IPV/OPV) 2006-05-24 Completed [facility] 00:00:00 [facility] DTAP 2006-05-24 Completed [facility] 00:00:00 [facility] Proquad 2006-05-24 Completed [facility] (MMR/VARICELLA) 00:00:00 [facility] Polio (IPV/OPV) 2006-05-24 Completed [facility] 00:00:00 [facility] DTAP 2006-05-24 Completed [facility] 00:00:00 [facility] Proquad 2006-05-24 Completed [facility] (MMR/VARICELLA) 00:00:00 [facility] Polio (IPV/OPV) 2006-05-24 Completed [facility] 00:00:00 [facility] DTAP 2006-05-24 Completed [facility] 00:00:00 [facility] Proquad 2006-05-24 Completed [facility] of (MMR/VARICELLA) 00:00:00 [facility] Polio (IPV/OPV) 2006-05-24 Completed [facility] 00:00:00 [facility] DTAP 2006-05-24 Completed [facility] 00:00:00 [facility] Proquad 2006-05-24 Completed [facility] (MMR/VARICELLA) 00:00:00 [facility] Polio (IPV/OPV) 2006-05-24 Completed [facility] 00:00:00 [facility] DTAP 2006-05-24 Completed [facility] 00:00:00 [facility] Proquad 2006-05-24 Completed [facility] (MMR/VARICELLA) 00:00:00 [facility] Polio (IPV/OPV) 2006-05-24 Completed [facility] 00:00:00 [facility] DTAP 2006-05-24 Completed [facility] 00:00:00 [facility] Proquad 2006-05-24 Completed [facility] (MMR/VARICELLA) 00:00:00 [facility] Polio (IPV/OPV) 2006-05-24 Completed [facility] 00:00:00 [facility] DTAP 2006-05-24 Completed [facility] 00:00:00 [facility] Proquad 2006-05-24 Completed [facility] of (MMR/VARICELLA) 00:00:00 [facility] Polio (IPV/OPV) 2006-05-24 Completed [facility] 00:00:00 [facility] DTAP 2006-05-24 Completed [facility] 00:00:00 [facility] Proquad 2006-05-24 Completed [facility] (MMR/VARICELLA) 00:00:00 [facility] Polio (IPV/OPV) 2006-05-24 Completed [facility] 00:00:00 [facility] DTAP 2006-05-24 Completed [facility] 00:00:00 [facility] Proquad 2006-05-24 Completed [facility] of (MMR/VARICELLA) 00:00:00 [facility] Polio (IPV/OPV) 2006-05-24 Completed [facility] 00:00:00 [facility] DTAP 2006-05-24 Completed [facility] 00:00:00 [facility] Proquad 2006-05-24 Completed [facility] of (MMR/VARICELLA) 00:00:00 [facility] Polio (IPV/OPV) 2006-05-24 Completed [facility] 00:00:00 [facility] DTAP 2006-05-24 Completed [facility] 00:00:00 [facility] Proquad 2006-05-24 Completed [facility] of (MMR/VARICELLA) 00:00:00 [facility] Polio (IPV/OPV) 2006-05-24 Completed [facility] 00:00:00 [facility] DTAP 2006-05-24 Completed [facility] 00:00:00 [facility] Proquad 2006-05-24 Completed [facility] of (MMR/VARICELLA) 00:00:00 [facility] Polio (IPV/OPV) 2006-05-24 Completed [facility] 00:00:00 [facility] DTAP 2006-05-24 Completed [facility] 00:00:00 [facility] Proquad 2006-05-24 Completed [facility] of (MMR/VARICELLA) 00:00:00 [facility] Polio (IPV/OPV) 2006-05-24 Completed [facility] 00:00:00 [facility] DTAP 2006-05-24 Completed [facility] 00:00:00 [facility] Proquad 2006-05-24 Completed [facility] of (MMR/VARICELLA) 00:00:00 [facility] Polio (IPV/OPV) 2006-05-24 Completed [facility] 00:00:00 [facility] DTAP 2006-05-24 Completed [facility] 00:00:00 [facility] Proquad 2006-05-24 Completed [facility] of (MMR/VARICELLA) 00:00:00 [facility] Polio (IPV/OPV) 2006-05-24 Completed [facility] 00:00:00 [facility] DTAP 2006-05-24 Completed [facility] 00:00:00 [facility] Proquad 2006-05-24 Completed [facility] of (MMR/VARICELLA) 00:00:00 [facility] Polio (IPV/OPV) 2006-05-24 Completed [facility] 00:00:00 [facility] DTAP 2006-05-24 Completed [facility] 00:00:00 [facility] Proquad 2006-05-24 Completed [facility] of (MMR/VARICELLA) 00:00:00 [facility] Polio (IPV/OPV) 2006-05-24 Completed [facility] 00:00:00 [facility] DTAP 2006-05-24 Completed [facility] 00:00:00 [facility] Proquad 2006-05-24 Completed [facility] (MMR/VARICELLA) 00:00:00 [facility] Polio (IPV/OPV) 2006-05-24 Completed [facility] 00:00:00 [facility] DTAP 2006-05-24 Completed [facility] 00:00:00 [facility] Proquad 2006-05-24 Completed [facility] of (MMR/VARICELLA) 00:00:00 [facility] Polio (IPV/OPV) 2006-05-24 Completed [facility] 00:00:00 [facility] DTAP 2006-05-24 Completed [facility] 00:00:00 [facility] Proquad 2006-05-24 Completed [facility] of (MMR/VARICELLA) 00:00:00 [facility] Polio (IPV/OPV) 2006-05-24 Completed [facility] 00:00:00 [facility] DTAP 2006-05-24 Completed [facility] 00:00:00 [facility] Proquad 2006-05-24 Completed [facility] of (MMR/VARICELLA) 00:00:00 [facility] Polio (IPV/OPV) 2006-05-24 Completed [facility] 00:00:00 [facility] DTAP 2006-05-24 Completed [facility] 00:00:00 [facility] Proquad 2006-05-24 Completed [facility] of (MMR/VARICELLA) 00:00:00 [facility] Polio (IPV/OPV) 2006-05-24 Completed [facility] 00:00:00 [facility] DTAP 2006-05-24 Completed [facility] 00:00:00 [facility] [facility] Proquad 2006-05-24 Completed [facility] (MMR/VARICELLA) 00:00:00 [facility] Polio (IPV/OPV) 2006-05-24 Completed [facility] 00:00:00 [facility] DTAP 2006-05-24 Completed [facility] of 00:00:00 [facility] Proquad 2006-05-24 Completed [facility] (MMR/VARICELLA) 00:00:00 [facility] Polio (IPV/OPV) 2006-05-24 Completed [facility] 00:00:00 [facility] DTAP 2006-05-24 Completed [facility] 00:00:00 [facility] Proquad 2006-05-24 Completed [facility] of (MMR/VARICELLA) 00:00:00 [facility] Polio (IPV/OPV) 2006-05-24 Completed [facility] 00:00:00 [facility] DTAP 2006-05-24 Completed [facility] 00:00:00 [facility] Proquad 2006-05-24 Completed [facility] of (MMR/VARICELLA) 00:00:00 [facility] Polio (IPV/OPV) 2006-05-24 Completed [facility] 00:00:00 [facility] DTAP 2006-05-24 Completed [facility] of 00:00:00 [facility] Proquad 2006-05-24 Completed [facility] of (MMR/VARICELLA) 00:00:00 [facility] Polio (IPV/OPV) 2006-05-24 Completed [facility] 00:00:00 [facility] DTAP 2006-05-24 Completed [facility] of 00:00:00 [facility] Proquad 2006-05-24 Completed [facility] of (MMR/VARICELLA) 00:00:00 [facility] Polio (IPV/OPV) 2006-05-24 Completed [facility] 00:00:00 [facility] DTAP 2006-05-24 Completed [facility] of 00:00:00 [facility] Proquad 2006-05-24 Completed [facility] of (MMR/VARICELLA) 00:00:00 [facility] Polio (IPV/OPV) 2006-05-24 Completed [facility] 00:00:00 [facility] DTAP 2006-05-24 Completed [facility] 00:00:00 [facility] Proquad 2006-05-24 Completed [facility] of (MMR/VARICELLA) 00:00:00 [facility] Polio (IPV/OPV) 2006-05-24 Completed [facility] 00:00:00 [facility] DTAP 2006-05-24 Completed [facility] of 00:00:00 [facility] Proquad 2006-05-24 Completed [facility] of (MMR/VARICELLA) 00:00:00 [facility] Polio (IPV/OPV) 2006-05-24 Completed [facility] 00:00:00 [facility] DTAP 2006-05-24 Completed [facility] of 00:00:00 [facility] Proquad 2006-05-24 Completed [facility] of (MMR/VARICELLA) 00:00:00 [facility] Polio (IPV/OPV) 2006-05-24 Completed [facility] 00:00:00 [facility] DTAP 2006-05-24 Completed [facility] of 00:00:00 [facility] Proquad 2006-05-24 Completed [facility] (MMR/VARICELLA) 00:00:00 [facility] Pol[facility] (IPV/OPV) 2006-05-24 Completed [facility] 00:00:00 [facility] DTAP 2006-05-24 Completed [facility] of 00:00:00 [facility] Proquad 2006-05-24 Completed [facility] (MMR/VARICELLA) 00:00:00 [facility] Polio (IPV/OPV) 2006-05-24 Completed [facility] 00:00:00 [facility] DTAP 2006-05-24 Completed [facility] of 00:00:00 [facility] Proquad 2006-05-24 Completed [facility] of (MMR/VARICELLA) 00:00:00 [facility] Polio (IPV/OPV) 2006-05-24 Completed [facility] 00:00:00 [facility] DTAP 2006-05-24 Completed [facility] of 00:00:00 [facility] Proquad 2006-05-24 Completed [facility] of (MMR/VARICELLA) 00:00:00 [facility] Polio (IPV/OPV) 2006-05-24 Completed [facility] 00:00:00 [facility] DTAP 2006-05-24 Completed [facility] of 00:00:00 [facility] Proquad 2006-05-24 Completed [facility] of (MMR/VARICELLA) 00:00:00 [facility] Polio (IPV/OPV) 2006-05-24 Completed [facility] 00:00:00 [facility] DTAP 2006-05-24 Completed [facility] of 00:00:00 [facility] Proquad 2006-05-24 Completed [facility] (MMR/VARICELLA) 00:00:00 [facility] Polio (IPV/OPV) 2006-05-24 Completed [facility] 00:00:00 [facility] DTAP 2006-05-24 Completed [facility] of 00:00:00 [facility] Proquad 2006-05-24 Completed [facility] (MMR/VARICELLA) 00:00:00 [facility] Polio (IPV/OPV) 2006-05-24 Completed [facility] 00:00:00 [facility] DTAP 2006-05-24 Completed [facility] of 00:00:00 [facility] Proquad 2006-05-24 Completed [facility] of (MMR/VARICELLA) 00:00:00 [facility] Polio (IPV/OPV) 2006-05-24 Completed [facility] 00:00:00 [facility] DTAP 2006-05-24 Completed [facility] of 00:00:00 [facility] Proquad 2006-05-24 Completed [facility] of (MMR/VARICELLA) 00:00:00 [facility] Polio (IPV/OPV) 2006-05-24 Completed [facility] 00:00:00 [facility] HEPATITIS A 2005-05-19 Completed [facility] of 00:00:00 [facility] Influenza Virus 2005-05-19 Completed [facility]it [facility] of Vaccine 00:00:00 [facility] HEPATITIS A 2005-05-19 Completed [facility] of 00:00:00 [facility] Influenza Virus 2005-05-19 Completed [facility] of Vaccine 00:00:00 [facility] HEPATITIS A 2005-05-19 Completed [facility] of 00:00:00 [facility] Influenza Virus 2005-05-19 Completed [facility] of Vaccine 00:00:00 [facility] HEPATITIS A 2005-05-19 Completed [facility] of 00:00:00 [facility] Influenza Virus 2005-05-19 Completed [facility] of Vaccine 00:00:00 [facility] HEPATITIS A 2005-05-19 Completed [facility] of 00:00:00 [facility] Influenza Virus 2005-05-19 Completed [facility] of Vaccine 00:00:00 [facility] HEPATITIS A 2005-05-19 Completed [facility] 00:00:00 [facility] Influenza Virus 2005-05-19 Completed [facility] Vaccine 00:00:00 [facility] HEPATITIS A 2005-05-19 Completed [facility] of 00:00:00 [facility] Influenza Virus 2005-05-19 Completed [facility] Vaccine 00:00:00 [facility] HEPATITIS A 2005-05-19 Completed [facility] 00:00:00 [facility] Influenza Virus 2005-05-19 Completed [facility] Vaccine 00:00:00 [facility] HEPATITIS A 2005-05-19 Completed [facility] of 00:00:00 [facility] Influenza Virus 2005-05-19 Completed [facility] Vaccine 00:00:00 [facility] HEPATITIS A 2005-05-19 Completed [facility] 00:00:00 [facility] Influenza Virus 2005-05-19 Completed [facility] Vaccine 00:00:00 [facility] HEPATITIS A 2005-05-19 Completed [facility] of 00:00:00 [facility] Influenza Virus 2005-05-19 Completed [facility] Vaccine 00:00:00 [facility] HEPATITIS A 2005-05-19 Completed [facility] of 00:00:00 [facility] Influenza Virus 2005-05-19 Completed [facility] Vaccine 00:00:00 [facility] HEPATITIS A 2005-05-19 Completed [facility] of 00:00:00 [facility] Influenza Virus 2005-05-19 Completed [facility] Vaccine 00:00:00 [facility] HEPATITIS A 2005-05-19 Completed [facility] 00:00:00 [facility] Influenza Virus 2005-05-19 Completed [facility] Vaccine 00:00:00 [facility] HEPATITIS A 2005-05-19 Completed [facility] 00:00:00 [facility] Influenza Virus 2005-05-19 Completed [facility] Vaccine 00:00:00 [facility] HEPATITIS A 2005-05-19 Completed [facility] 00:00:00 [facility] Influenza Virus 2005-05-19 Completed [facility] Vaccine 00:00:00 [facility] HEPATITIS A 2005-05-19 Completed [facility] 00:00:00 [facility] Influenza Virus 2005-05-19 Completed [facility] Vaccine 00:00:00 [facility] HEPATITIS A 2005-05-19 Completed [facility] 00:00:00 [facility] Influenza Virus 2005-05-19 Completed [facility] Vaccine 00:00:00 [facility] HEPATITIS A 2005-05-19 Completed [facility] of 00:00:00 [facility] Influenza Virus 2005-05-19 Completed [facility] Vaccine 00:00:00 [facility] HEPATITIS A 2005-05-19 Completed [facility] 00:00:00 [facility] Influenza Virus 2005-05-19 Completed [facility] Vaccine 00:00:00 [facility] HEPATITIS A 2005-05-19 Completed [facility] 00:00:00 [facility] Influenza Virus 2005-05-19 Completed [facility] Vaccine 00:00:00 [facility] HEPATITIS A 2005-05-19 Completed [facility] 00:00:00 [facility] Influenza Virus 2005-05-19 Completed [facility] Vaccine 00:00:00 [facility] HEPATITIS A 2005-05-19 Completed [facility] 00:00:00 [facility] Influenza Virus 2005-05-19 Completed [facility] Vaccine 00:00:00 [facility] HEPATITIS A 2005-05-19 Completed [facility] 00:00:00 [facility] Influenza Virus 2005-05-19 Completed [facility] Vaccine 00:00:00 [facility] HEPATITIS A 2005-05-19 Completed [facility] 00:00:00 [facility] Influenza Virus 2005-05-19 Completed [facility] Vaccine 00:00:00 [facility] HEPATITIS A 2005-05-19 Completed [facility] 00:00:00 [facility] Influenza Virus 2005-05-19 Completed [facility] Vaccine 00:00:00 [facility] HEPATITIS A 2005-05-19 Completed [facility] 00:00:00 [facility] Influenza Virus 2005-05-19 Completed [facility] Vaccine 00:00:00 [facility] HEPATITIS A 2005-05-19 Completed [facility] 00:00:00 [facility] Influenza Virus 2005-05-19 Completed [facility] Vaccine 00:00:00 [facility] HEPATITIS A 2005-05-19 Completed [facility] 00:00:00 [facility] Influenza Virus 2005-05-19 Completed [facility] Vaccine 00:00:00 [facility] HEPATITIS A 2005-05-19 Completed [facility] 00:00:00 [facility] Influenza Virus 2005-05-19 Completed [facility] Vaccine 00:00:00 [facility] HEPATITIS A 2005-05-19 Completed [facility] 00:00:00 [facility] Influenza Virus 2005-05-19 Completed [facility] Vaccine 00:00:00 [facility] HEPATITIS A 2005-05-19 Completed [facility] of 00:00:00 [facility] Influenza Virus 2005-05-19 Completed [facility] Vaccine 00:00:00 [facility] HEPATITIS A 2005-05-19 Completed [facility] 00:00:00 [facility] Influenza Virus 2005-05-19 Completed [facility] Vaccine 00:00:00 [facility] HEPATITIS A 2005-05-19 Completed [facility] 00:00:00 [facility] Influenza Virus 2005-05-19 Completed [facility] Vaccine 00:00:00 [facility] HEPATITIS A 2005-05-19 Completed [facility] 00:00:00 [facility] Influenza Virus 2005-05-19 Completed [facility] Vaccine 00:00:00 [facility] HEPATITIS A 2005-05-19 Completed [facility] 00:00:00 [facility] Influenza Virus 2005-05-19 Completed [facility] Vaccine 00:00:00 [facility] HEPATITIS A 2005-05-19 Completed [facility] 00:00:00 [facility] Influenza Virus 2005-05-19 Completed [facility] Vaccine 00:00:00 [facility] HEPATITIS A 2005-05-19 Completed [facility] 00:00:00 [facility] Influenza Virus 2005-05-19 Completed [facility] Vaccine 00:00:00 [facility] HEPATITIS A 2005-05-19 Completed [facility] 00:00:00 [facility] Influenza Virus 2005-05-19 Completed [facility] Vaccine 00:00:00 [facility] HEPATITIS A 2005-05-19 Completed [facility] 00:00:00 [facility] Influenza Virus 2005-05-19 Completed [facility] Vaccine 00:00:00 [facility] HEPATITIS A 2005-05-19 Completed [facility] 00:00:00 [facility] Influenza Virus 2005-05-19 Completed [facility] Vaccine 00:00:00 [facility] HEPATITIS A 2005-05-19 Completed [facility] 00:00:00 [facility] Influenza Virus 2005-05-19 Completed [facility] Vaccine 00:00:00 [facility] HEPATITIS A 2004-05-17 Completed [facility] 00:00:00 [facility] HEPATITIS A 2004-05-17 Completed [facility] 00:00:00 [facility] HEPATITIS A 2004-05-17 Completed [facility] 00:00:00 [facility] HEPATITIS A 2004-05-17 Completed [facility] of 00:00:00 [facility] HEPATITIS A 2004-05-17 Completed [facility] 00:00:00 [facility] HEPATITIS A 2004-05-17 Completed [facility] 00:00:00 [facility] HEPATITIS A 2004-05-17 Completed [facility] 00:00:00 [facility] HEPATITIS A 2004-05-17 Completed [facility] 00:00:00 [facility] HEPATITIS A 2004-05-17 Completed [facility] 00:00:00 [facility] HEPATITIS A 2004-05-17 Completed [facility] 00:00:00 [facility] HEPATITIS A 2004-05-17 Completed [facility] 00:00:00 [facility] HEPATITIS A 2004-05-17 Completed [facility] 00:00:00 [facility] HEPATITIS A 2004-05-17 Completed [facility] 00:00:00 [facility] HEPATITIS A 2004-05-17 Completed [facility] 00:00:00 [facility] HEPATITIS A 2004-05-17 Completed [facility] 00:00:00 [facility] HEPATITIS A 2004-05-17 Completed [facility] 00:00:00 [facility] HEPATITIS A 2004-05-17 Completed [facility] 00:00:00 [facility] HEPATITIS A 2004-05-17 Completed [facility] 00:00:00 [facility] HEPATITIS A 2004-05-17 Completed [facility] 00:00:00 [facility] HEPATITIS A 2004-05-17 Completed [facility] 00:00:00 [facility] HEPATITIS A 2004-05-17 Completed [facility] 00:00:00 [facility] HEPATITIS A 2004-05-17 Completed [facility] 00:00:00 [facility] HEPATITIS A 2004-05-17 Completed [facility] 00:00:00 [facility] HEPATITIS A 2004-05-17 Completed [facility] 00:00:00 [facility] HEPATITIS A 2004-05-17 Completed [facility] 00:00:00 [facility] HEPATITIS A 2004-05-17 Completed [facility] 00:00:00 [facility] HEPATITIS A 2004-05-17 Completed [facility] 00:00:00 [facility] HEPATITIS A 2004-05-17 Completed [facility] 00:00:00 [facility] HEPATITIS A 2004-05-17 Completed [facility] 00:00:00 [facility] HEPATITIS A 2004-05-17 Completed [facility] 00:00:00 [facility] HEPATITIS A 2004-05-17 Completed [facility] 00:00:00 [facility] HEPATITIS A 2004-05-17 Completed [facility] 00:00:00 [facility] HEPATITIS A 2004-05-17 Completed [facility] 00:00:00 [facility] HEPATITIS A 2004-05-17 Completed [facility] 00:00:00 [facility] HEPATITIS A 2004-05-17 Completed [facility] 00:00:00 [facility] HEPATITIS A 2004-05-17 Completed [facility] 00:00:00 [facility] HEPATITIS A 2004-05-17 Completed [facility] 00:00:00 [facility] HEPATITIS A 2004-05-17 Completed [facility] 00:00:00 [facility] HEPATITIS A 2004-05-17 Completed [facility] 00:00:00 [facility] HEPATITIS A 2004-05-17 Completed [facility] 00:00:00 [facility] HEPATITIS A 2004-05-17 Completed [facility] of 00:00:00 [facility] HEPATITIS A 2004-05-17 Completed [facility] 00:00:00 [facility] Polio (IPV/OPV) 2003-08-21 Completed [facility] 00:00:00 [facility] Polio (IPV/OPV) 2003-08-21 Completed [facility] 00:00:00 [facility] Polio (IPV/OPV) 2003-08-21 Completed [facility] 00:00:00 [facility] Polio (IPV/OPV) 2003-08-21 Completed [facility] 00:00:00 [facility] Polio (IPV/OPV) 2003-08-21 Completed [facility] 00:00:00 [facility] Polio (IPV/OPV) 2003-08-21 Completed [facility] 00:00:00 [facility] Polio (IPV/OPV) 2003-08-21 Completed [facility] 00:00:00 [facility] Polio (IPV/OPV) 2003-08-21 Completed [facility] 00:00:00 [facility] Polio (IPV/OPV) 2003-08-21 Completed [facility] 00:00:00 [facility] Polio (IPV/OPV) 2003-08-21 Completed [facility] 00:00:00 [facility] Polio (IPV/OPV) 2003-08-21 Completed [facility] 00:00:00 [facility] Polio (IPV/OPV) 2003-08-21 Completed [facility] 00:00:00 [facility] Polio (IPV/OPV) 2003-08-21 Completed [facility] 00:00:00 [facility] Polio (IPV/OPV) 2003-08-21 Completed [facility] 00:00:00 [facility] Polio (IPV/OPV) 2003-08-21 Completed [facility] 00:00:00 [facility] Polio (IPV/OPV) 2003-08-21 Completed [facility] 00:00:00 [facility] Polio (IPV/OPV) 2003-08-21 Completed [facility] 00:00:00 [facility] Polio (IPV/OPV) 2003-08-21 Completed [facility] 00:00:00 [facility] Polio (IPV/OPV) 2003-08-21 Completed [facility] 00:00:00 [facility] Polio (IPV/OPV) 2003-08-21 Completed [facility] 00:00:00 [facility] Polio (IPV/OPV) 2003-08-21 Completed [facility] 00:00:00 [facility] Polio (IPV/OPV) 2003-08-21 Completed [facility] 00:00:00 [facility] Polio (IPV/OPV) 2003-08-21 Completed [facility] 00:00:00 [facility] Polio (IPV/OPV) 2003-08-21 Completed [facility] 00:00:00 [facility] Polio (IPV/OPV) 2003-08-21 Completed [facility] 00:00:00 [facility] Polio (IPV/OPV) 2003-08-21 Completed [facility] 00:00:00 [facility] Polio (IPV/OPV) 2003-08-21 Completed [facility] 00:00:00 [facility] HIB 4 Dose Schedule 2003-05-22 Completed Unive rsity of 00:00:00 [facility] MMR 2003-05-22 Completed [facility] 00:00:00 [facility] Pneumococcal 7 2003-05-22 Completed University of Conjugate, PCV7 00:00:00 [facility]Pre[facility]ar[facility] Varicella 2003-05-22 Completed [facility] (varivax)(chicken 00:00:00 [facility] pox[facility] HIB 4 Dose Schedule 2003-05-22 Completed Unive rsity of 00:00:00 [facility] MMR 2003-05-22 Completed [facility] 00:00:00 [facility] Pneumococcal 7 2003-05-22 Completed [facility] of Conjugate, PCV7 00:00:00 [facility] (Prevnar[facility] Varicella 2003-05-22 Completed [facility] (varivax)(chicken 00:00:00 [facility] HIB 4 Dose Schedule 2003-05-22 Completed Unive rsity of 00:00:00 [facility] MMR 2003-05-22 Completed [facility] 00:00:00 [facility] Pneumococcal 7 2003-05-22 Completed [facility] of Conjugate, PCV7 00:00:00 [facility] (Prevnar7[facility] Varicella 2003-05-22 Completed [facility] (varivax)(chicken 00:00:00 [facility] HIB 4 Dose Schedule 2003-05-22 Completed Unive rsity of 00:00:00 [facility] MMR 2003-05-22 Completed [facility] 00:00:00 [facility] Pneumococcal 7 2003-05-22 Completed [facility] of Conjugate, PCV7 00:00:00 [facility] (Prevnar7[facility] Varicella 2003-05-22 Completed [facility] (varivax)(chicken 00:00:00 [place] [facility] HIB 4 Dose Schedule 2003-05-22 Completed [facility]ive rsity [facility] 00:00:00 [facility] [facility] MMR 2003-05-22 Completed [facility] 00:00:00 [facility] Pneumococcal 7 2003-05-22 Completed [facility] of Conjugate, PCV7 00:00:00 [place] [facility] (Prevnar7) [facility] Varicella 2003-05-22 Completed [facility] (varivax)(chicken 00:00:00 [place] [facility] pox) [facility] HIB 4 Dose Schedule 2003-05-22 Completed Unive rsity of 00:00:00 [facility] MMR 2003-05-22 Completed [facility] 00:00:00 [facility] Pneumococcal 7 2003-05-22 Completed [facility] Conjugate, PCV7 00:00:00 [place] [facility] (Prevnar7) [facility] Varicella 2003-05-22 Completed [facility] (varivax)(chicken 00:00:00 [place] [facility] pox) [facility] HIB 4 Dose Schedule 2003-05-22 Completed Unive rsity of 00:00:00 [facility] MMR 2003-05-22 Completed [facility] 00:00:00 [facility] Pneumococcal 7 2003-05-22 Completed [facility] of Conjugate, PCV7 00:00:00 [place] [facility] (Prevnar7) [facility] Varicella 2003-05-22 Completed [facility] (varivax)(chicken 00:00:00 [place] [facility]ox[facility] HIB 4 Dose Schedule 2003-05-22 Completed Unive rsity of 00:00:00 [facility] MMR 2003-05-22 Completed [facility] 00:00:00 [facility] Pneumococcal 7 2003-05-22 Completed [facility] Conjugate, PCV7 00:00:00 [place] [facility] (Prevnar7) [facility] Varicella 2003-05-22 Completed [facility] (varivax)(chicken 00:00:00 [place] [facility] pox) [facility] HIB 4 Dose Schedule 2003-05-22 Completed Unive rsity of 00:00:00 [facility] MMR 2003-05-22 Completed [facility] 00:00:00 [facility] Pneumococcal 7 2003-05-22 Completed [facility] Conjugate, PCV7 00:00:00 [place] [facility] (Prevnar7) [facility] Varicella 2003-05-22 Completed [facility] (varivax)(chicken 00:00:00 [place] [facility] pox) [facility] HIB 4 Dose Schedule 2003-05-22 Completed Unive rsity of 00:00:00 [facility] MMR 2003-05-22 Completed [facility] 00:00:00 [facility] Pneumococcal 7 2003-05-22 Completed [facility] Conjugate, PCV7 00:00:00 [place] [facility] (Prevnar7) [facility] Varicella 2003-05-22 Completed [facility] (varivax)(chicken 00:00:00 [facility] edical pox) Branch HIB 4 Dose Schedule 2003-05-22 Completed Unive rsity of 00:00:00 [facility] MMR 2003-05-22 Completed [facility] 00:00:00 [facility] Pneumococcal 7 2003-05-22 Completed [facility] of Conjugate, PCV7 00:00:00 [place] [facility] (Prevnar7) [facility] Varicella 2003-05-22 Completed [facility] (varivax)(chicken 00:00:00 [place] [facility] pox) [facility] HIB 4 Dose Schedule 2003-05-22 Completed Unive rsity of 00:00:00 [facility] MMR 2003-05-22 Completed [facility] 00:00:00 [facility] Pneumococcal 7 2003-05-22 Completed [facility] Conjugate, PCV7 00:00:00 [place] [facility] (Prevnar7) [facility] Varicella 2003-05-22 Completed [facility] (varivax)(chicken 00:00:00 [place] [facility] pox) [facility] HIB 4 Dose Schedule 2003-05-22 Completed Unive rsity of 00:00:00 [facility] MMR 2003-05-22 Completed [facility] 00:00:00 [facility] Pneumococcal 7 2003-05-22 Completed [facility] Conjugate, PCV7 00:00:00 [place] [facility] (Prevnar7) [facility] Varicella 2003-05-22 Completed [facility] (varivax)(chicken 00:00:00 [place] [facility] pox) [facility] HIB 4 Dose Schedule 2003-05-22 Completed [facility]ive rsity of 00:00:00 [facility] MMR 2003-05-22 Completed [facility] 00:00:00 [facility] Pneumococcal 7 2003-05-22 Completed [facility] Conjugate, PCV7 00:00:00 [place] [facility] (Prevnar7) [facility] Varicella 2003-05-22 Completed [facility] (varivax)(chicken 00:00:00 [place] [facility] pox) [facility] HIB 4 Dose Schedule 2003-05-22 Completed Unive rsity of 00:00:00 [facility] MMR 2003-05-22 Completed [facility] 00:00:00 [facility] Pneumococcal 7 2003-05-22 Completed [facility] of Conjugate, PCV7 00:00:00 [place] [facility] (Prevnar7) [facility] Varicella 2003-05-22 Completed [facility] (varivax)(chicken 00:00:00 [facility] edical pox) Branch HIB 4 Dose Schedule 2003-05-22 Completed Unive rsity of 00:00:00 [facility] MMR 2003-05-22 Completed [facility] 00:00:00 [facility] Pneumococcal 7 2003-05-22 Completed [facility] of Conjugate, PCV7 00:00:00 [place] [facility] (Prevnar7) [facility] Varicella 2003-05-22 Completed [facility] (varivax)(chicken 00:00:00 [facility] edical pox) Branch HIB 4 Dose Schedule 2003-05-22 Completed Unive rsity of 00:00:00 [facility] MMR 2003-05-22 Completed [facility] 00:00:00 [facility] Pneumococcal 7 2003-05-22 Completed [facility] of Conjugate, PCV7 00:00:00 [place] [facility] (Prevnar7) [facility] Varicella 2003-05-22 Completed [facility] (varivax)(chicken 00:00:00 [facility] edical pox) Branch HIB 4 Dose Schedule 2003-05-22 Completed Unive rsity of 00:00:00 [facility] MMR 2003-05-22 Completed [facility] 00:00:00 [facility] Pneumococcal 7 2003-05-22 Completed [facility] of Conjugate, PCV7 00:00:00 [place] [facility] (Prevnar7) [facility] Varicella 2003-05-22 Completed [facility] (varivax)(chicken 00:00:00 [place] [facility] pox) [facility] HIB 4 Dose Schedule 2003-05-22 Completed Unive rsity of 00:00:00 [facility] MMR 2003-05-22 Completed [facility] 00:00:00 [facility] Pneumococcal 7 2003-05-22 Completed [facility] of Conjugate, PCV7 00:00:00 [place] [facility] (Prevnar[facility] Varicella 2003-05-22 Completed [facility] (varivax)(chicken 00:00:00 [facility] edical pox) Branch HIB 4 Dose Schedule 2003-05-22 Completed Unive rsity of 00:00:00 [facility] MMR 2003-05-22 Completed [facility] 00:00:00 [facility] Pneumococcal 7 2003-05-22 Completed [facility] of Conjugate, PCV7 00:00:00 [place] [facility] (Prevnar7) [facility] Varicella 2003-05-22 Completed [facility] (varivax)(chicken 00:00:00 [facility] edical pox) Branch HIB 4 Dose Schedule 2003-05-22 Completed Unive rsity of 00:00:00 [facility] MMR 2003-05-22 Completed [facility] 00:00:00 [facility] Pneumococcal 7 2003-05-22 Completed [facility] of Conjugate, PCV7 00:00:00 [place] [facility] (Prevnar7) [facility] Varicella 2003-05-22 Completed [facility] (varivax)(chicken 00:00:00 [facility] edical pox) Branch HIB 4 Dose Schedule 2003-05-22 Completed Unive rsity of 00:00:00 [facility] MMR 2003-05-22 Completed [facility] of 00:00:00 [facility] Pneumococcal 7 2003-05-22 Completed [facility] of Conjugate, PCV7 00:00:00 [place] [facility] (Prevnar[facility] Varicella 2003-05-22 Completed [facility] (varivax)(chicken 00:00:00 [place] [facility] pox) [facility] HIB 4 Dose Schedule 2003-05-22 Completed Unive rsity of 00:00:00 [facility] MMR 2003-05-22 Completed [facility] 00:00:00 [facility] Pneumococcal 7 2003-05-22 Completed [facility] Conjugate, PCV7 00:00:00 [place] [facility] (Prevnar7) [facility] Varicella 2003-05-22 Completed [facility] (varivax)(chicken 00:00:00 [place] [facility] pox) [facility] HIB 4 Dose Schedule 2003-05-22 Completed Unive rsity of 00:00:00 [facility] MMR 2003-05-22 Completed [facility] 00:00:00 [facility] Pneumococcal 7 2003-05-22 Completed [facility] of Conjugate, PCV7 00:00:00 [place] [facility] (Prevnar7[facility] Varicella 2003-05-22 Completed [facility] (varivax)(chicken 00:00:00 [place] [facility] pox) [facility] HIB 4 Dose Schedule 2003-05-22 Completed Unive rsity of 00:00:00 [facility] MMR 2003-05-22 Completed [facility] 00:00:00 [facility] Pneumococcal 7 2003-05-22 Completed [facility] Conjugate, PCV7 00:00:00 [place] [facility] (Prevnar7) [facility] Varicella 2003-05-22 Completed [facility] (varivax)(chicken 00:00:00 [facility] edical pox) Branch HIB 4 Dose Schedule 2003-05-22 Completed Unive rsity of 00:00:00 [facility] MMR 2003-05-22 Completed [facility] 00:00:00 [facility] Pneumococcal 7 2003-05-22 Completed [facility] of Conjugate, PCV7 00:00:00 [place] [facility] (Prevnar7) [facility] Varicella 2003-05-22 Completed [facility] (varivax)(chicken 00:00:00 [facility] edical pox) Branch HIB 4 Dose Schedule 2003-05-22 Completed Unive rsity of 00:00:00 [facility] MMR 2003-05-22 Completed [facility] 00:00:00 [facility] Pneumococcal 7 2003-05-22 Completed [facility] Conjugate, PCV7 00:00:00 [place] [facility] (Prevnar7) [facility] Varicella 2003-05-22 Completed [facility] (varivax)(chicken 00:00:00 [place] [facility] pox) [facility] DTAP 2003-01-01 Completed [facility] 00:00:00 [facility] HIB 4 Dose Schedule 2003-01-01 Completed Unive rsity of 00:00:00 [facility] Hep B, Adol or Pedi 2003-01-01 Completed Unive rsity of Dosage 00:00:00 [facility] Pneumococcal 7 2003-01-01 Completed [facility] of Conjugate, PCV7 00:00:00 [place] [facility] (Prevnar7) [facility] DTAP 2003-01-01 Completed [facility] 00:00:00 [facility] HIB 4 Dose Schedule 2003-01-01 Completed Unive rsity of 00:00:00 [facility] Hep B, Adol or Pedi 2003-01-01 Completed Unive rsity of Dosage 00:00:00 [facility] Pneumococcal 7 2003-01-01 Completed [facility] Conjugate, PCV7 00:00:00 [place] [facility] (Prevnar7) [facility] DTAP 2003-01-01 Completed [facility] 00:00:00 [facility] HIB 4 Dose Schedule 2003-01-01 Completed Unive rsity of 00:00:00 [facility] Hep B, Adol or Pedi 2003-01-01 Completed Unive rsity of Dosage 00:00:00 [facility] Pneumococcal 7 2003-01-01 Completed [facility] Conjugate, PCV7 00:00:00 [place] [facility] (Prevnar7) [facility] DTAP 2003-01-01 Completed [facility] 00:00:00 [facility] HIB 4 Dose Schedule 2003-01-01 Completed Unive rsity of 00:00:00 [facility] Hep B, Adol or Pedi 2003-01-01 Completed Unive rsity of Dosage 00:00:00 [facility] Pneumococcal 7 2003-01-01 Completed [facility] of Conjugate, PCV7 00:00:00 [place] [facility] (Prevnar7) [facility] DTAP 2003-01-01 Completed [facility] 00:00:00 [facility] HIB 4 Dose Schedule 2003-01-01 Completed Unive rsity of 00:00:00 [facility] Hep B, Adol or Pedi 2003-01-01 Completed Unive rsity of Dosage 00:00:00 [facility] Pneumococcal 7 2003-01-01 Completed [facility] Conjugate, PCV7 00:00:00 [place] [facility] (Prevnar7) [facility] DTAP 2003-01-01 Completed [facility] 00:00:00 [facility] HIB 4 Dose Schedule 2003-01-01 Completed Unive rsity of 00:00:00 [facility] Hep B, Adol or Pedi 2003-01-01 Completed Unive rsity of Dosage 00:00:00 [facility] Pneumococcal 7 2003-01-01 Completed [facility] Conjugate, PCV7 00:00:00 [place] [facility] (Prevnar7) [facility] DTAP 2003-01-01 Completed [facility] 00:00:00 [facility] HIB 4 Dose Schedule 2003-01-01 Completed Unive rsity of 00:00:00 [facility] Hep B, Adol or Pedi 2003-01-01 Completed Unive rsity of Dosage 00:00:00 [facility] Pneumococcal 7 2003-01-01 Completed [facility] Conjugate, PCV7 00:00:00 [place] [facility] (Prevnar7) [facility] DTAP 2003-01-01 Completed [facility] 00:00:00 [facility] HIB 4 Dose Schedule 2003-01-01 Completed Unive rsity of 00:00:00 [facility] Hep B, Adol or Pedi 2003-01-01 Completed Unive rsity of Dosage 00:00:00 [facility] Pneumococcal 7 2003-01-01 Completed [facility] Conjugate, PCV7 00:00:00 [place] [facility] (Prevnar7) [facility] DTAP 2003-01-01 Completed [facility] 00:00:00 [facility] HIB 4 Dose Schedule 2003-01-01 Completed Unive rsity of 00:00:00 [facility] Hep B, Adol or Pedi 2003-01-01 Completed Unive rsity of Dosage 00:00:00 [facility] Pneumococcal 7 2003-01-01 Completed [facility] Conjugate, PCV7 00:00:00 [place] [facility] (Prevnar7) [facility] DTAP 2003-01-01 Completed [facility] 00:00:00 [facility] HIB 4 Dose Schedule 2003-01-01 Completed Unive rsity of 00:00:00 [facility] Hep B, Adol or Pedi 2003-01-01 Completed Unive rsity of Dosage 00:00:00 [facility] Pneumococcal 7 2003-01-01 Completed [facility] Conjugate, PCV7 00:00:00 [place] [facility] (Prevnar7) [facility] DTAP 2003-01-01 Completed [facility] 00:00:00 [facility] HIB 4 Dose Schedule 2003-01-01 Completed Unive rsity of 00:00:00 [facility] Hep B, Adol or Pedi 2003-01-01 Completed Unive rsity of Dosage 00:00:00 [facility] Pneumococcal 7 2003-01-01 Completed [facility] Conjugate, PCV7 00:00:00 [place] [facility] (Prevnar7) [facility] DTAP 2003-01-01 Completed [facility] 00:00:00 [facility] HIB 4 Dose Schedule 2003-01-01 Completed Unive rsity of 00:00:00 [facility] Hep B, Adol or Pedi 2003-01-01 Completed Unive rsity of Dosage 00:00:00 [facility] Pneumococcal 7 2003-01-01 Completed [facility] Conjugate, PCV7 00:00:00 [place] [facility] (Prevnar7) [facility] DTAP 2003-01-01 Completed [facility] 00:00:00 [facility] HIB 4 Dose Schedule 2003-01-01 Completed Unive rsity of 00:00:00 [facility] Hep B, Adol or Pedi 2003-01-01 Completed Unive rsity of Dosage 00:00:00 [facility] Pneumococcal 7 2003-01-01 Completed [facility] Conjugate, PCV7 00:00:00 [place] [facility] (Prevnar7) [facility] DTAP 2003-01-01 Completed [facility] 00:00:00 [facility] HIB 4 Dose Schedule 2003-01-01 Completed Unive rsity of 00:00:00 [facility] Hep B, Adol or Pedi 2003-01-01 Completed Unive rsity of Dosage 00:00:00 [facility] Pneumococcal 7 2003-01-01 Completed [facility] of Conjugate, PCV7 00:00:00 [place] [facility] (Prevnar7) [facility] DTAP 2003-01-01 Completed [facility] 00:00:00 [facility] HIB 4 Dose Schedule 2003-01-01 Completed Unive rsity of 00:00:00 [facility] Hep B, Adol or Pedi 2003-01-01 Completed Unive rsity of Dosage 00:00:00 [facility] Pneumococcal 7 2003-01-01 Completed [facility] of Conjugate, PCV7 00:00:00 [place] [facility] (Prevnar7) [facility] DTAP 2003-01-01 Completed [facility] 00:00:00 [facility] HIB 4 Dose Schedule 2003-01-01 Completed Unive rsity of 00:00:00 [facility] Hep B, Adol or Pedi 2003-01-01 Completed Unive rsity of Dosage 00:00:00 [facility] Pneumococcal 7 2003-01-01 Completed [facility] of Conjugate, PCV7 00:00:00 [place] [facility] (Prevnar7) [facility] DTAP 2003-01-01 Completed [facility] 00:00:00 [facility] HIB 4 Dose Schedule 2003-01-01 Completed Unive rsity of 00:00:00 [facility] Hep B, Adol or Pedi 2003-01-01 Completed Unive rsity of Dosage 00:00:00 [facility] Pneumococcal 7 2003-01-01 Completed [facility] of Conjugate, PCV7 00:00:00 [place] [facility] (Prevnar7) [facility] DTAP 2003-01-01 Completed [facility] 00:00:00 [facility] HIB 4 Dose Schedule 2003-01-01 Completed Unive rsity of 00:00:00 [facility] Hep B, Adol or Pedi 2003-01-01 Completed Unive rsity of Dosage 00:00:00 [facility] Pneumococcal 7 2003-01-01 Completed [facility] Conjugate, PCV7 00:00:00 [place] [facility] (Prevnar7) [facility] DTAP 2003-01-01 Completed [facility] 00:00:00 [facility] HIB 4 Dose Schedule 2003-01-01 Completed Unive rsity of 00:00:00 [facility] Hep B, Adol or Pedi 2003-01-01 Completed Unive rsity of Dosage 00:00:00 [facility] Pneumococcal 7 2003-01-01 Completed [facility] of Conjugate, PCV7 00:00:00 [place] [facility] (Prevnar7) [facility] DTAP 2003-01-01 Completed [facility] 00:00:00 [facility] HIB 4 Dose Schedule 2003-01-01 Completed Unive rsity of 00:00:00 [facility] Hep B, Adol or Pedi 2003-01-01 Completed Unive rsity of Dosage 00:00:00 [facility] Pneumococcal 7 2003-01-01 Completed [facility] of Conjugate, PCV7 00:00:00 [place] [facility] (Prevnar7) [facility] DTAP 2003-01-01 Completed [facility] 00:00:00 [facility] HIB 4 Dose Schedule 2003-01-01 Completed Unive rsity of 00:00:00 [facility] Hep B, Adol or Pedi 2003-01-01 Completed Unive rsity of Dosage 00:00:00 [facility] Pneumococcal 7 2003-01-01 Completed [facility] of Conjugate, PCV7 00:00:00 [place] [facility] (Prevnar7) [facility] DTAP 2003-01-01 Completed [facility] 00:00:00 [facility] HIB 4 Dose Schedule 2003-01-01 Completed Unive rsity of 00:00:00 [facility] Hep B, Adol or Pedi 2003-01-01 Completed Unive rsity of Dosage 00:00:00 [facility] Pneumococcal 7 2003-01-01 Completed [facility] of Conjugate, PCV7 00:00:00 [place] [facility] (Prevnar7) [facility] DTAP 2003-01-01 Completed [facility] 00:00:00 [facility] HIB 4 Dose Schedule 2003-01-01 Completed Unive rsity of 00:00:00 [facility] Hep B, Adol or Pedi 2003-01-01 Completed Unive rsity of Dosage 00:00:00 [facility] Pneumococcal 7 2003-01-01 Completed [facility] of Conjugate, PCV7 00:00:00 [place] [facility] (Prevnar7) [facility] DTAP 2003-01-01 Completed [facility] 00:00:00 [facility] HIB 4 Dose Schedule 2003-01-01 Completed Unive rsity of 00:00:00 [facility] Hep B, Adol or Pedi 2003-01-01 Completed Unive rsity of Dosage 00:00:00 [facility] Pneumococcal 7 2003-01-01 Completed [facility] of Conjugate, PCV7 00:00:00 [place] [facility] (Prevnar7) [facility] DTAP 2003-01-01 Completed [facility] 00:00:00 [facility] HIB 4 Dose Schedule 2003-01-01 Completed Unive rsity of 00:00:00 [facility] Hep B, Adol or Pedi 2003-01-01 Completed Unive rsity of Dosage 00:00:00 [facility] Pneumococcal 7 2003-01-01 Completed [facility] of Conjugate, PCV7 00:00:00 [place] [facility] (Prevnar7) [facility] DTAP 2003-01-01 Completed [facility] 00:00:00 [facility] HIB 4 Dose Schedule 2003-01-01 Completed Unive rsity of 00:00:00 [facility] Hep B, Adol or Pedi 2003-01-01 Completed Unive rsity of Dosage 00:00:00 [facility] Pneumococcal 7 2003-01-01 Completed [facility] Conjugate, PCV7 00:00:00 [place] [facility] (Prevnar7) [facility] DTAP 2003-01-01 Completed [facility] 00:00:00 [facility] HIB 4 Dose Schedule 2003-01-01 Completed Unive rsity of 00:00:00 [facility] Hep B, Adol or Pedi 2003-01-01 Completed [facility]ive [facility] of Dosage 00:00:00 [facility] Pneumococcal 7 2003-01-01 Completed [facility] of Conjugate, PCV7 00:00:00 [place] [facility] (Prevnar7) [facility] DTAP 2002 Completed [facility] 00:00:00 [facility] HIB 4 Dose Schedule 2002 Completed Unive [facility] of 00:00:00 [facility] Pneumococcal 7 2002 Completed [facility] of Conjugate, PCV7 00:00:00 [place] [facility] (Prevnar7) [facility] Polio (IPV/OPV) 2002 Completed [facility] 00:00:00 [facility] DTAP 2002 Completed [facility] 00:00:00 [facility] HIB 4 Dose Schedule 2002 Completed Unive rsity of 00:00:00 [facility] Pneumococcal 7 2002 Completed [facility] of Conjugate, PCV7 00:00:00 [place] [facility] (Prevnar7) [facility] Polio (IPV/OPV) 2002 Completed [facility] 00:00:00 [facility] DTAP 2002 Completed [facility] 00:00:00 [facility] HIB 4 Dose Schedule 2002 Completed Unive rsity of 00:00:00 [facility] Pneumococcal 7 2002 Completed [facility] of Conjugate, PCV7 00:00:00 [place] [facility] (Prevnar7) [facility] Polio (IPV/OPV) 2002 Completed [facility] 00:00:00 [facility] DTAP 2002 Completed [facility] 00:00:00 [facility] HIB 4 Dose Schedule 2002 Completed Unive rsity of 00:00:00 [facility] Pneumococcal 7 2002 Completed [facility] of Conjugate, PCV7 00:00:00 [place] [facility] (Pre[facility] Polio (IPV/OPV) 2002 Completed [facility] 00:00:00 [facility] DTAP 2002 Completed [facility] 00:00:00 [facility] HIB 4 Dose Schedule 2002 Completed Unive rs[facility] of 00:00:00 [facility] Pneumococcal 7 2002 Completed [facility] of Conjugate, PCV7 00:00:00 [place] [facility] (Prevnar[facility] Polio (IPV/OPV) 2002 Completed [facility] 00:00:00 [facility] [facility] DTAP 2002 Completed [facility] 00:00:00 [facility] HIB 4 Dose Schedule 2002 Completed [facility] 00:00:00 [facility] Pneumococcal 7 2002 Completed [facility] of Conjugate, PCV7 00:00:00 [facility] (Pre[facility] Polio (IPV/OPV) 2002 Completed [facility] 00:00:00 [facility] DTAP 2002 Completed [facility] 00:00:00 [facility] HIB 4 Dose Schedule 2002 Completed [facility] 00:00:00 [facility] Pneumococcal 7 2002 Completed [facility] Conjugate, PCV7 00:00:00 [place] [facility] (Pre[facility] Polio (IPV/OPV) 2002 Completed [facility] 00:00:00 [facility] DTAP 2002 Completed [facility] 00:00:00 [facility] HIB 4 Dose Schedule 2002 Completed [facility] 00:00:00 [facility] Pneumococcal 7 2002 Completed [facility] Conjugate, PCV7 00:00:00 [facility] [place] [facility] (Pre[facility] Polio (IPV/OPV) 2002 Completed [facility] 00:00:00 [facility] DTAP 2002 Completed [facility] 00:00:00 [facility] HIB 4 Dose Schedule 2002 Completed [facility] 00:00:00 [facility] Pneumococcal 7 2002 Completed [facility] Conjugate, PCV7 00:00:00 [facility] (Pre[facility]ar[facility] Polio (IPV/OPV) 2002 Completed [facility] 00:00:00 [facility] DTAP 2002 Completed [facility] 00:00:00 [facility] HIB 4 Dose Schedule 2002 Completed [facility] 00:00:00 [facility] Pneumococcal 7 2002 Completed [facility] Conjugate, PCV7 00:00:00 [facility] [place] [facility] (Prevnar[facility] Polio (IPV/OPV) 2002 Completed [facility] 00:00:00 [facility] DTAP 2002 Completed [facility] 00:00:00 [facility] HIB 4 Dose Schedule 2002 Completed [facility] 00:00:00 [facility] Pneumococcal 7 2002 Completed [facility] Conjugate, PCV7 00:00:00 [place] [facility] (Prevnar7[facility] Polio (IPV/OPV) 2002 Completed [facility] 00:00:00 [facility] DTAP 2002 Completed [facility] 00:00:00 [facility] HIB 4 Dose Schedule 2002 Completed [facility] 00:00:00 [facility] Pneumococcal 7 2002 Completed [facility] Conjugate, PCV7 00:00:00 [facility] [place] [facility] (Prevnar[facility] Polio (IPV/OPV) 2002 Completed [facility] 00:00:00 [facility] DTAP 2002 Completed [facility] 00:00:00 [facility] HIB 4 Dose Schedule 2002 Completed [facility] 00:00:00 [facility] Pneumococcal 7 2002 Completed [facility] Conjugate, PCV7 00:00:00 [facility] [place] [facility] (Prevnar7[facility] Polio (IPV/OPV) 2002 Completed [facility] 00:00:00 [facility] DTAP 2002 Completed [facility] 00:00:00 [facility] HIB 4 Dose Schedule 2002 Completed [facility] 00:00:00 [facility] Pneumococcal 7 2002 Completed [facility] Conjugate, PCV7 00:00:00 [facility] [place] [facility] (Prevnar7[facility] Polio (IPV/OPV) 2002 Completed [facility] 00:00:00 [facility] DTAP 2002 Completed [facility] 00:00:00 [facility] HIB 4 Dose Schedule 2002 Completed [facility] 00:00:00 [facility] Pneumococcal 7 2002 Completed [facility] Conjugate, PCV7 00:00:00 [facility] [place] [facility] (Prevnar7[facility] Polio (IPV/OPV) 2002 Completed [facility] 00:00:00 [facility] DTAP 2002 Completed [facility] 00:00:00 [facility] HIB 4 Dose Schedule 2002 Completed [facility] 00:00:00 [facility] Pneumococcal 7 2002 Completed [facility] Conjugate, PCV7 00:00:00 [place] [facility] (Prevnar7[facility] Polio (IPV/OPV) 2002 Completed [facility] 00:00:00 [facility] DTAP 2002 Completed [facility] 00:00:00 [facility] HIB 4 Dose Schedule 2002 Completed [facility] 00:00:00 [facility] Pneumococcal 7 2002 Completed [facility] Conjugate, PCV7 00:00:00 [place] [facility] (Prevnar7[facility] Polio (IPV/OPV) 2002 Completed [facility] 00:00:00 [facility] DTAP 2002 Completed [facility] 00:00:00 [facility] HIB 4 Dose Schedule 2002 Completed [facility] 00:00:00 [facility] Pneumococcal 7 2002 Completed [facility] Conjugate, PCV7 00:00:00 [place] [facility] (Prevnar7[facility] Polio (IPV/OPV) 2002 Completed [facility] 00:00:00 [facility] DTAP 2002 Completed [facility] 00:00:00 [facility] HIB 4 Dose Schedule 2002 Completed [facility] 00:00:00 [facility] Pneumococcal 7 2002 Completed [facility] Conjugate, PCV7 00:00:00 [facility] [place] [facility] (Prevnar7[facility] Polio (IPV/OPV) 2002 Completed [facility] 00:00:00 [facility] DTAP 2002 Completed [facility] 00:00:00 [facility] HIB 4 Dose Schedule 2002 Completed [facility] 00:00:00 [facility] Pneumococcal 7 2002 Completed [facility] Conjugate, PCV7 00:00:00 [facility] [place] [facility] (Prevnar7[facility] Polio (IPV/OPV) 2002 Completed [facility] 00:00:00 [facility] DTAP 2002 Completed [facility] 00:00:00 [facility] HIB 4 Dose Schedule 2002 Completed [facility] 00:00:00 [facility] Pneumococcal 7 2002 Completed [facility] Conjugate, PCV7 00:00:00 [place] [facility] (Prevnar7[facility] Polio (IPV/OPV) 2002 Completed [facility] 00:00:00 [facility] DTAP 2002 Completed [facility] 00:00:00 [facility] HIB 4 Dose Schedule 2002 Completed [facility] 00:00:00 [facility] Pneumococcal 7 2002 Completed [facility] Conjugate, PCV7 00:00:00 [place] [facility] (Prevnar7[facility] Polio (IPV/OPV) 2002 Completed [facility] 00:00:00 [facility] DTAP 2002 Completed [facility] 00:00:00 [facility] HIB 4 Dose Schedule 2002 Completed [facility] 00:00:00 [facility] Pneumococcal 7 2002 Completed [facility] Conjugate, PCV7 00:00:00 [place] [facility] (Prevnar7[facility] Polio (IPV/OPV) 2002 Completed [facility] 00:00:00 [facility] DTAP 2002 Completed [facility] 00:00:00 [facility] HIB 4 Dose Schedule 2002 Completed [facility] 00:00:00 [facility] Pneumococcal 7 2002 Completed [facility] Conjugate, PCV7 00:00:00 [place] [facility] (Prevnar7[facility] Polio (IPV/OPV) 2002 Completed [facility] 00:00:00 [facility] DTAP 2002 Completed [facility] 00:00:00 [facility] HIB 4 Dose Schedule 2002 Completed [facility] 00:00:00 [facility] Pneumococcal 7 2002 Completed [facility] Conjugate, PCV7 00:00:00 [facility] [place] [facility] (Prevnar7[facility] Polio (IPV/OPV) 2002 Completed [facility] 00:00:00 [facility] DTAP 2002 Completed [facility] 00:00:00 [facility] HIB 4 Dose Schedule 2002 Completed [facility] 00:00:00 [facility] Pneumococcal 7 2002 Completed [facility] Conjugate, PCV7 00:00:00 [facility] [place] [facility] (Prevnar7[facility] Polio (IPV/OPV) 2002 Completed [facility] 00:00:00 [facility] DTAP 2002 Completed [facility] 00:00:00 [facility] HIB 4 Dose Schedule 2002 Completed [facility] 00:00:00 [facility] Pneumococcal 7 2002 Completed [facility] Conjugate, PCV7 00[facility]00:00 [facility] Polio (IPV/OPV) 2002 Completed [facility] 00:00:00 [facility] DTAP 2002 Completed [facility] 00:00:00 [facility] HIB 4 Dose Schedule 2002 Completed [facility] 00:00:00 [facility] Hep B, Adol or Pedi 2002 Completed [facility] of Dosage 00:00:00 [facility] Polio (IPV/OPV) 2002 Completed [facility] 00:00:00 [facility] DTAP 2002 Completed [facility] 00:00:00 [facility] HIB 4 Dose Schedule 2002 Completed [facility] 00:00:00 [facility] Hep B, Adol or Pedi 2002 Completed [facility] of Dosage 00:00:00 [facility] Polio (IPV/OPV) 2002 Completed [facility] 00:00:00 [facility] DTAP 2002 Completed [facility] 00:00:00 [facility] HIB 4 Dose Schedule 2002 Completed [facility] 00:00:00 [facility] Hep B, Adol or Pedi 2002 Completed [facility] Dosage 00:00:00 [facility] Polio (IPV/OPV) 2002 Completed [facility] 00:00:00 [facility] DTAP 2002 Completed [facility] 00:00:00 [facility] HIB 4 Dose Schedule 2002 Completed [facility] 00:00:00 [facility] Hep B, Adol or Pedi 2002 Completed [facility] of Dosage 00:00:00 [facility] Polio (IPV/OPV) 2002 Completed [facility] 00:00:00 [facility] DTAP 2002 Completed [facility] 00:00:00 [facility] HIB 4 Dose Schedule 2002 Completed [facility] 00:00:00 [facility] Hep B, Adol or Pedi 2002 Completed [facility] Dosage 00:00:00 [facility] Polio (IPV/OPV) 2002 Completed [facility] 00:00:00 [facility] DTAP 2002 Completed [facility] 00:00:00 [facility] HIB 4 Dose Schedule 2002 Completed [facility] 00:00:00 [facility] Hep B, Adol or Pedi 2002 Completed [facility] Dosage 00:00:00 [facility] Polio (IPV/OPV) 2002 Completed [facility] 00:00:00 [facility] DTAP 2002 Completed [facility] 00:00:00 [facility] HIB 4 Dose Schedule 2002 Completed [facility] 00:00:00 [facility] Hep B, Adol or Pedi 2002 Completed [facility] Dosage 00:00:00 [facility] Polio (IPV/OPV) 2002 Completed [facility] 00:00:00 [facility] DTAP 2002 Completed [facility] 00:00:00 [facility] HIB 4 Dose Schedule 2002 Completed [facility] 00:00:00 [facility] Hep B, Adol or Pedi 2002 Completed [facility] Dosage 00:00:00 [facility] Polio (IPV/OPV) 2002 Completed [facility] 00:00:00 [facility] DTAP 2002 Completed [facility] 00:00:00 [facility] HIB 4 Dose Schedule 2002 Completed [facility] 00:00:00 [facility] Hep B, Adol or Pedi 2002 Completed [facility] Dosage 00:00:00 [facility] Polio (IPV/OPV) 2002 Completed [facility] 00:00:00 [facility] DTAP 2002 Completed [facility] 00:00:00 [facility] HIB 4 Dose Schedule 2002 Completed [facility] 00:00:00 [facility] Hep B, Adol or Pedi 2002 Completed [facility] Dosage 00:00:00 [facility] Polio (IPV/OPV) 2002 Completed [facility] 00:00:00 [facility] DTAP 2002 Completed [facility] 00:00:00 [facility] HIB 4 Dose Schedule 2002 Completed [facility] 00:00:00 [facility] Hep B, Adol or Pedi 2002 Completed [facility] Dosage 00:00:00 [facility] Polio (IPV/OPV) 2002 Completed [facility] 00:00:00 [facility] DTAP 2002 Completed [facility] 00:00:00 [facility] HIB 4 Dose Schedule 2002 Completed [facility] 00:00:00 [facility] Hep B, Adol or Pedi 2002 Completed [facility] Dosage 00:00:00 [facility] Polio (IPV/OPV) 2002 Completed [facility] 00:00:00 [facility] DTAP 2002 Completed [facility] 00:00:00 [facility] HIB 4 Dose Schedule 2002 Completed [facility] 00:00:00 [facility] Hep B, Adol or Pedi 2002 Completed [facility] Dosage 00:00:00 [facility] Polio (IPV/OPV) 2002 Completed [facility] 00:00:00 [facility] DTAP 2002 Completed [facility] 00:00:00 [facility] HIB 4 Dose Schedule 2002 Completed [facility] 00:00:00 [facility] Hep B, Adol or Pedi 2002 Completed [facility] Dosage 00:00:00 [facility] Polio (IPV/OPV) 2002 Completed [facility] 00:00:00 [facility] DTAP 2002 Completed [facility] 00:00:00 [facility] HIB 4 Dose Schedule 2002 Completed [facility] 00:00:00 [facility] Hep B, Adol or Pedi 2002 Completed [facility] Dosage 00:00:00 [facility] Polio (IPV/OPV) 2002 Completed [facility] 00:00:00 [facility] DTAP 2002 Completed [facility] 00:00:00 [facility] HIB 4 Dose Schedule 2002 Completed [facility] 00:00:00 [facility] Hep B, Adol or Pedi 2002 Completed [facility] Dosage 00:00:00 [facility] Polio (IPV/OPV) 2002 Completed [facility] 00:00:00 [facility] DTAP 2002 Completed [facility] 00:00:00 [facility] HIB 4 Dose Schedule 2002 Completed [facility] 00:00:00 [facility] Hep B, Adol or Pedi 2002 Completed [facility] Dosage 00:00:00 [facility] Polio (IPV/OPV) 2002 Completed [facility] 00:00:00 [facility] DTAP 2002 Completed [facility] 00:00:00 [facility] HIB 4 Dose Schedule 2002 Completed [facility] 00:00:00 [facility] Hep B, Adol or Pedi 2002 Completed [facility] Dosage 00:00:00 [facility] Polio (IPV/OPV) 2002 Completed [facility] 00:00:00 [facility] DTAP 2002 Completed [facility] 00:00:00 [facility] HIB 4 Dose Schedule 2002 Completed [facility] 00:00:00 [facility] Hep B, Adol or Pedi 2002 Completed [facility] Dosage 00:00:00 [facility] Polio (IPV/OPV) 2002 Completed [facility] 00:00:00 [facility] DTAP 2002 Completed [facility] 00:00:00 [facility] HIB 4 Dose Schedule 2002 Completed [facility] 00:00:00 [facility] Hep B, Adol or Pedi 2002 Completed [facility] Dosage 00:00:00 [facility] Polio (IPV/OPV) 2002 Completed [facility] 00:00:00 [facility] DTAP 2002 Completed [facility] 00:00:00 [facility] HIB 4 Dose Schedule 2002 Completed [facility] 00:00:00 [facility] Hep B, Adol or Pedi 2002 Completed [facility] Dosage 00:00:00 [facility] Polio (IPV/OPV) 2002 Completed [facility] 00:00:00 [facility] DTAP 2002 Completed [facility] 00:00:00 [facility] HIB 4 Dose Schedule 2002 Completed [facility] 00:00:00 [facility] Hep B, Adol or Pedi 2002 Completed [facility] Dosage 00:00:00 [facility] Polio (IPV/OPV) 2002 Completed [facility] 00:00:00 [facility] DTAP 2002 Completed [facility] 00:00:00 [facility] HIB 4 Dose Schedule 2002 Completed [facility] 00:00:00 [facility] Hep B, Adol or Pedi 2002 Completed [facility] Dosage 00:00:00 [facility] Polio (IPV/OPV) 2002 Completed [facility] 00:00:00 [facility] DTAP 2002 Completed [facility] 00:00:00 [facility] HIB 4 Dose Schedule 2002 Completed [facility] 00:00:00 [facility] Hep B, Adol or Pedi 2002 Completed [facility] Dosage 00:00:00 [facility] Polio (IPV/OPV) 2002 Completed [facility] 00:00:00 [facility] DTAP 2002 Completed [facility] 00:00:00 [facility] HIB 4 Dose Schedule 2002 Completed [facility] 00:00:00 [facility] Hep B, Adol or Pedi 2002 Completed [facility] of Dosage 00:00:00 [facility] Polio (IPV/OPV) 2002 Completed [facility] 00:00:00 [facility] DTAP 2002 Completed [facility] 00:00:00 [facility] HIB 4 Dose Schedule 2002 Completed [facility] 00:00:00 [facility] Hep B, Adol or Pedi 2002 Completed [facility] Dosage 00:00:00 [facility] Polio (IPV/OPV) 2002 Completed [facility] 00:00:00 [facility] DTAP 2002 Completed [facility] 00:00:00 [facility] HIB 4 Dose Schedule 2002 Completed [facility] 00:00:00 [facility] Hep B, Adol or Pedi 2002 Completed [facility] of Dosage 00:00:00 [facility] Polio (IPV/OPV) 2002 Completed [facility] 00:00:00 [facility] Hep B, Adol or Pedi 2002 Completed [facility] of Dosage 00:00:00 [facility] Hep B, Adol or Pedi 2002 Completed [facility] Dosage 00:00:00 [facility] Hep B, Adol or Pedi 2002 Completed [facility] Dosage 00:00:00 [facility] Hep B, Adol or Pedi 2002 Completed [facility] of Dosage 00:00:00 [facility] Hep B, Adol or Pedi [...] 2002 Completed [facility] Dosage 00:00:00 [facility] Hep B, Adol or Pedi [...] Completed [facility]ive [facility] of Dosage 00:00:00 [facility] Hep B, Adol or Pedi 2002 Completed [facility] of Dosage 00:00:00 [facility] Hep B, Adol or Pedi 2002 Completed [facility] of Dosage 00:00:00 [facility] Hep B, Adol or Pedi 2002 Completed [facility] of Dosage 00:00:00 [facility] Hep B, Adol or Pedi 2002 Completed [facility] of Dosage 00:00:00 [facility] Hep B, Adol or Pedi 2002 Completed [facility] of Dosage 00:00:00 [facility] Hep B, Adol or Pedi 2002 Completed [facility] of Dosage 00:00:00 [facility] Hep B, Adol or Pedi 2002 Completed [facility] of Dosage 00:00:00 [facility] Hep B, Adol or Pedi 2002 Completed [facility] of Dosage 00:00:00 [facility] Hep B, Adol or Pedi 2002 Completed [facility] of Dosage 00:00:00 [facility] Hep B, Adol or Pedi 2002 Completed [facility] Dosage 00:00:00 [facility] Hep B, Adol or Pedi 2002 Completed [facility] Dosage 00:00:00 [facility] Vital Signs Vital Name Observation Time Observation Value Comments Source Systolic blood 2022-06-01 94 mm[Hg] erp informed, University o f pressure 05:18:00 asymptomatic [facility] Diastolic blood 2022-06-01 71 mm[Hg] erp informed, University of pressure 05:18:00 asymptomatic [facility] Heart rate 2022-06-01 85 /min [facility] 05:18:00 [facility] Respiratory rate 2022-06-01 18 /min [facility] 05:18:00 [facility] Oxygen saturation 2022-06-01 100 /min [facility] in Arterial blood 05:18:00 [facility] by Pulse oximetry [place] Body temperature 2022-06-01 36.5 [place] [facility] 04:31:00 [facility] Body height 2022-06-01 160 cm University of 04:31:00 [facility] Body weight 2022-06-01 51.256 kg University of 04:31:00 [facility] BMI 2022-06-01 20.02 kg/m2 University of 04:31:00 [facility] Body temperature 2022-05-19 36.28 [place] [facility] 18:10:00 [facility] Body weight 2022-05-19 51.256 kg University of 18:10:00 [facility] BMI 2022-05-19 20.02 kg/m2 University of 18:10:00 [facility] Body temperature 2022-04-21 36.22 [place] [facility] 20:32:00 [facility] Body height 2022-04-21 160 cm University of 20:32:00 [facility] Body weight 2022-04-21 50.349 kg University of 20:32:00 [facility] BMI 2022-04-21 19.66 kg/m2 University of 20:32:00 [facility] Systolic blood 2022-04-11 110 mm[Hg] University of pressure 03:10:00 [facility] Diastolic blood 2022-04-11 73 mm[Hg] University o f pressure 03:10:00 [facility] Heart rate 2022-04-11 88 /min University of 03:10:00 [facility] Respiratory rate 2022-04-11 18 /min University of 03:10:00 [facility] Oxygen saturation 2022-04-11 100 /min [facility] Arterial blood 03:10:00 [facility] by Pulse oximetry [place] Body temperature 2022-04-10 36.28 Linda University of 22:10:00 [facility] Body weight 2022-04-10 49.896 kg University of 22:10:00 [facility] BMI 2022-04-10 19.80 kg/m2 University of 22:10:00 [facility] Systolic blood 2022-04-10 108 mm[Hg] University of pressure 21:48:00 [facility] Diastolic blood 2022-04-10 75 mm[Hg] University o f pressure 21:48:00 [facility] Heart rate 2022-04-10 127 /min University of 21:48:00 [facility] Body temperature 2022-04-10 36.61 Linda University of 21:48:00 [facility] Respiratory rate 2022-04-10 17 /min University of 21:48:00 [facility] Body height 2022-04-10 158.8 cm University of 21:48:00 [facility] Body weight 2022-04-10 49.896 kg University of 21:48:00 [facility] BMI 2022-04-10 19.80 kg/m2 University of 21:48:00 [facility] Oxygen saturation 2022-04-10 98 /min University of in Arterial blood 21:48:00 [place] [facility] by Pulse oximetry [facility] Systolic blood 2022-04-07 104 mm[Hg] University of pressure 18:00:00 [facility] Diastolic blood 2022-04-07 58 mm[Hg] University o f pressure 18:00:00 [facility] Heart rate 2022-04-07 64 /min University of 18:00:00 [facility] Body temperature 2022-04-07 36.39 Linda University of 18:00:00 [facility] Respiratory rate 2022-04-07 18 /min University of 18:00:00 [facility] Oxygen saturation 2022-04-07 96 /min University of in Arterial blood 18:00:00 [place] [facility] by Pulse oximetry [facility] Body height 2022-04-04 161.3 cm University of 23:00:18 [facility] Body weight 2022-04-04 50.349 kg University of 23:00:18 [facility] BMI 2022-04-04 19.35 kg/m2 University of 23:00:18 [facility] Heart rate 2022-04-04 109 /min University of :03:00 [facility] Body temperature 2022-04-04 37.72 Linda University of 21:03:00 [facility] Respiratory rate 2022-04-04 18 /min University of 21:03:00 [facility] Oxygen saturation 2022-04-04 95 /min University of in Arterial blood 21:03:00 [place] [facility] by Pulse oximetry [facility] Systolic blood 2022-04-04 98 mm[Hg] University [facility] pressure 21:00:00 [facility] Diastolic blood 2022-04-04 64 mm[Hg] University o f pressure 21:00:00 [facility] Body height 2022-04-04 162.6 cm University of 17:44:00 [facility] Body weight 2022-04-04 50.349 kg University of 17:44:00 [facility] BMI 2022-04-04 19.05 kg/m2 University of 17:44:00 [facility] Systolic blood 2022-04-01 118 mm[Hg] University of pressure 06:00:00 [facility] Diastolic blood 2022-04-01 92 mm[Hg] University o f pressure 06:00:00 [facility] Heart rate 2022-04-01 78 /min University of 06:00:00 [facility] Respiratory rate 2022-04-01 16 /min University of 06:00:00 [facility] Oxygen saturation 2022-04-01 98 /min University of in Arterial blood 06:00:00 [place] [facility] by Pulse oximetry [facility] Body height 2022-04-01 160 cm University of 03:48:00 [facility] Body weight 2022-04-01 56.7 kg University of 03:48:00 [facility] BMI 2022-04-01 22.14 kg/m2 University of 03:48:00 [facility] Height 2020-09-25 165.1 CM 23:56:00 Weight 2020-09-25 2.69 KG 23:56:00 Systolic blood 2022-06-13 117 mm[Hg] University of pressure 16:37:00 [facility] Diastolic blood 2022-06-13 85 mm[Hg] University o f pressure 16:37:00 [facility] Heart rate 2022-06-13 118 /min University of 16:37:00 [facility] Respiratory rate 2022-06-13 18 /min University of 16:37:00 [facility] Body height 2022-06-13 160 cm University of 16:37:00 [facility] Body weight 2022-06-13 50.803 kg University of 16:37:00 [facility] BMI 2022-06-13 19.84 kg/m2 University of 16:37:00 [facility] Oxygen saturation 2022-06-01 100 /min University of in Arterial blood 05:18:00 [place] [facility] Pulse oximetry [facility] Body temperature 2022-06-01 36.5 Linda University of 04:31:00 [facility] Systolic blood 2022-05-19 124 mm[Hg] University of pressure 16:06:00 [facility] Diastolic blood 2022-05-19 85 mm[Hg] University o f pressure 16:06:00 [facility] Heart rate 2022-05-19 103 /min University of 16:06:00 [facility] Respiratory rate 2022-05-19 18 /min University of 16:06:00 [facility] Body height 2022-05-19 160 cm University of 16:06:00 [facility] Body weight 2022-05-19 51.256 kg University of 16:06:00 [facility] BMI 2022-05-19 20.02 kg/m2 University of 16:06:00 [facility] Systolic blood 2022-05-02 115 mm[Hg] University of pressure 13:53:00 [facility] Diastolic blood 2022-05-02 80 mm[Hg] University o f pressure 13:53:00 [facility] Heart rate 2022-05-02 103 /min University of 13:53:00 [facility] Respiratory rate 2022-05-02 18 /min University of 13:53:00 [facility] Body height 2022-05-02 160 cm University of 13:53:00 [facility] Body weight 2022-05-02 51.256 kg University of 13:53:00 [facility] BMI 2022-05-02 20.02 kg/m2 University of 13:53:00 [facility] Body temperature 2022-04-21 36.22 Linda University of 20:32:00 [facility] Body height 2022-04-21 160 cm University of 20:32:00 [facility] Body weight 2022-04-21 50.349 kg University of 20:32:00 [facility] BMI 2022-04-21 19.66 kg/m2 University of 20:32:00 [facility] Systolic blood 2022-04-21 104 mm[Hg] University of pressure 15:04:00 [facility] Diastolic blood 2022-04-21 71 mm[Hg] University o f pressure 15:04:00 [facility] Heart rate 2022-04-21 110 /min University of 15:04:00 [facility] Respiratory rate 2022-04-21 18 /min University of 15:04:00 [facility] Body height 2022-04-21 157.5 cm University of 15:04:00 [facility] Body weight 2022-04-21 49.896 kg University of 15:04:00 [facility] BMI 2022-04-21 20.12 kg/m2 University of 15:04:00 [facility] Systolic blood 2022-04-11 110 mm[Hg] University of pressure 03:10:00 [facility] Diastolic blood 2022-04-11 73 mm[Hg] University o f pressure 03:10:00 [facility] Heart rate 2022-04-11 88 /min University of 03:10:00 [facility] Respiratory rate 2022-04-11 18 /min University of 03:10:00 [facility] Oxygen saturation 2022-04-11 100 /min University of in Arterial blood 03:10:00 [facility] by Pulse oximetry Branch Body temperature 2022-04-10 36.28 Linda University of 22:10: [facility] Body weight 2022-04-10 49.896 kg University of :10: [facility] BMI 2022-04-10 19.80 kg/m2 University of 22:10: [facility] Body height 2022-04-10 158.8 cm University of 21:48:00 [facility] Systolic blood 2022-04-06 114 mm[Hg] University of pressure 13:00:00 [facility] Diastolic blood 2022-04-06 71 mm[Hg] University o f pressure 13:00:00 [facility] Heart rate 2022-04-06 92 /min University of 13:00:00 [facility] Body temperature 2022-04-06 36.78 Linda University of 13:00:00 [facility] Respiratory rate 2022-04-06 20 /min University of 13:00:00 [facility] Oxygen saturation 2022-04-06 96 /min University of in Arterial blood 13:00:00 [facility] by Pulse oximetry Branch Body height 2022-04-04 161.3 cm University of 23:00:18 [facility] Body weight 2022-04-04 50.349 kg University of 23:00:18 [facility] BMI 2022-04-04 19.35 kg/m2 University of 23:00:18 [facility] Systolic blood 2022-03-28 116 mm[Hg] University of pressure 14:54:00 [facility] Diastolic blood 2022-03-28 87 mm[Hg] University o f pressure 14:54:00 [facility] Heart rate 2022-03-28 113 /min University of 14:54:00 [facility] Respiratory rate 2022-03-28 18 /min [facility] 14:54:00 [facility] Body height 2022-03-28 160 cm University 14:54:00 [facility] Body weight 2022-03-28 51.71 kg University 14:54:00 [facility] BMI 2022-03-28 20.19 kg/m2 University 14:54:00 [facility] Body temperature 2022-02-24 37 Linda University 18:37:00 [facility] Body weight 2022-02-24 51.801 kg University 18:37:00 [facility] BMI 2022-02-24 20.23 kg/m2 University 18:37:00 [facility] Systolic blood 2022-02-21 133 mm[Hg] [facility] pressure 12:51:00 [facility] Diastolic blood 2022-02-21 49 mm[Hg] [facility] pressure 12:51:00 [facility] Heart rate 2022-02-21 108 /min [facility] 12:51:00 [facility] Respiratory rate 2022-02-21 18 /min [facility] 12:51:00 [facility] Body height 2022-02-21 160 cm [facility] 12:51:00 [facility] Oxygen saturation 2022-01-24 98 /min [facility] in Arterial blood 00:45:00 [facility] torito by Pulse oximetry [place] 2009-07-13 51 cm [facility] Occipital-frontal 18:51:00 [facility] circumference by [place] Tape measure Procedures Procedure Date / Time Performing Clinician Source Performed CONSENT/REFUSAL FOR 2022-06-01 04:17:40 Doctor Fidel [facility] DIAGNOSIS AND TREATMENT [facility] CONSENT/REFUSAL FOR 2022-06-01 04:17:40 Doctor Fidel [facility] DIAGNOSIS AND TREATMENT [place] EMERGENCY SERVICES 2022-05-31 06:01:00 Doctor Fidel [facility] AGREEMENTS AND [facility] [place] AUTHORIZATIONS XR PELVIS 3+ VW 2022-05-19 16:43:54 Arnaldo [facility] XR PELVIS 3+ VW 2022-05-19 16:43:54 Arnaldo [facility] XR PELVIS 3+ VW 2022-04-21 20:26:51 Arnaldo [facility] XR HIPS 3 VW RIGHT 2022-04-11 02:02:47 [facility] <3 VW 2022-04-11 02:02:47 Venkat [facility] XR PELVIS <3 VW 2022-04-11 02:02:47 Venkat [facility] XR HIPS 3 VW RIGHT 2022-04-11 02:02:47 [facility] 2022-04-11 01:46:00 [facility] 2022-04-11 01:46:00 Venkta [facility] URINALYSIS 2022-04-11 01:45:00 Venkat [facility] URINALYSIS 2022-04-11 01:45:00 Venkat [facility] COMP. METABOLIC PANEL 2022-04-10 23:02:00 [id number] CBC WITH DIFF 2022-04-10 23:02:00 Venkat [facility] CBC WITH DIFF 2022-04-10 23:02:00 Venkat [facility] COMP. METABOLIC PANEL 2022-04-10 23:02:00 [id number] EMERGENCY SERVICES 2022-04-10 05:01:00 Doctor Unassigned, [facility] AGREEMENTS AND [facility] AUTHORIZATIONS EMERGENCY DEPARTMENT 2022-04-10 05:01:00 Doctor Unassigned, [facility] DOCUMENTS [facility] XR CLAVICLE COMP 2022-04-05 19:40:00 Lobo Castano [facility] BILATERAL [facility] Branch XR CLAVICLE COMP 2022-04-05 19:40:00 Lobo Castano [facility] BILATERAL [facility] URINALYSIS 2022-04-05 11:07:00 Greg [facility] URINALYSIS 2022-04-05 11:07:00 Greg [facility] CBC WITH DIFF 2022-04-05 10:24:00 Jimena Ny [facility] BASIC METABOLIC PANEL 2022-04-05 10:24:00 AnantJimena irene [facility] (NA, K, CL, CO2, GLUCOSE, [facility] BUN, CREATININE, [place]) BASIC METABOLIC PANEL 2022-04-05 10:24:00 AnantJimena lopez [facility] (NA, K, CL, CO2, GLUCOSE, [facility] BUN, CREATININE, CA) CBC WITH DIFF 2022-04-05 10:24:00 Jimena Ny [facility] COVID-19 (ID NOW RAPID 2022-04-05 00:38:00 AnantJimena lopez [facility] TESTING) [facility] LAB ONLY COVID 2022-04-05 00:38:00 Jimena Ny [facility] INTERPRETATION [facility] COVID-19 (ID NOW RAPID 2022-04-05 00:38:00 AnantJimena [facility] TESTING) [facility] LAB ONLY COVID 2022-04-05 00:38:00 Jimena Ny [facility] INTERPRETATION [facility] TROPONIN I 2022-04-05 00:25:00 Chou [facility] Andrea TROPONIN I 2022-04-05 00:25:00 Chou [facility] Andrea XR SHOULDER 2+ VW RIGHT 2022-04-05 00:11:00 Chou [facility] Andrea XR KNEE 3 VW LEFT 2022-04-05 00:11:00 Chou [facility] Andrea XR FOOT 3+ VW LEFT 2022-04-05 00:11:00 Chou [facility] Andrea XR PELVIS 3+ VW 2022-04-05 00:11:[address] [facility] XR KNEE <3 VW RIGHT 2022-04-05 00:11:00 Flo [facility] Branch XR FOOT 3+ VW LEFT 2022-04-05 00:11:00 Chou [facility] Andrea XR KNEE <3 VW RIGHT 2022-04-05 00:11:00 Flo [facility] XR KNEE 3 VW LEFT 2022-04-05 00:11:00 Chou [facility] Andrea XR PELVIS 3+ VW 2022-04-05 00:11:00 Flo [facility] XR SHOULDER 2+ VW RIGHT 2022-04-05 00:11:00 Chou [facility] Andrea HB ECG ROUTINE & RHYTHM 2022-04-04 23:08:36 Chou [facility] Andrea HB ECG ROUTINE & RHYTHM 2022-04-04 23:08:36 Chou [facility] Andrea HB ABO GROUPING 2022-04-04 19:55:[address] [facility] HB ABO GROUPING 2022-04-04 19:55:[address] [facility] CT TRAUMA HEAD WO 2022-04-04 19:10:01 Nolvia Husain [facility] CONTRAST Medical [place] CT TRAUMA CERVICAL SPINE 2022-04-04 19:10:01 Nolvia Husain [facility] CONTRAST Medical Branch CT TRAUMA THORACIC SPINE 2022-04-04 19:10:01 Nolvia Husain [facility] CONTRAST Medical Branch CT TRAUMA LUMBAR SPINE WO 2022-04-04 19:10:01 Nolvia Husain [facility] CONTRAST Medical [place] CT TRAUMA HEAD WO 2022-04-04 19:10:01 Nolvia Husain [facility] CONTRAST Medical Branch CT TRAUMA CERVICAL SPINE 2022-04-04 19:10:01 Nolvia Husain [facility] CONTRAST Medical Branch CT TRAUMA THORACIC SPINE 2022-04-04 19:10:01 Nolvia Husain [facility] WO CONTRAST Medical Branch CT TRAUMA LUMBAR SPINE WO 2022-04-04 19:10:01 Nolvia Husain [facility] CONTRAST Medical Branch CT TRAUMA THORAX W 2022-04-04 19:08:26 Nolvia Husain [facility] CONTRAST Medical Branch CT TRAUMA ABDOMEN PELVIS 2022-04-04 19:08:26 Nolvia Husain [facility] W CONTRAST Medical Branch CT TRAUMA THORAX W 2022-04-04 19:08:26 Nolvia Husain [facility] CONTRAST Medical Branch CT TRAUMA ABDOMEN PELVIS 2022-04-04 19:08:26 Nolvia Husain [facility] W CONTRAST Medical Branch ABORH CONFIRMATION (LAB 2022-04-04 19:02:00 Nolvia Husain [facility] ONLY) Medical Branch ABORH CONFIRMATION (LAB 2022-04-04 19:02:00 Nolvia Husain [facility] ONLY) Medical Branch LIPASE 2022-04-04 18:35:[address] [facility] TEST, SERUM 2022-04-04 18:35:00 Nolvia Husain [facility] Medical Branch COMP. METABOLIC PANEL 2022-04-04 18:35:00 Nolvia Husain [facility] ([id number]) Medical Branch COMP. METABOLIC PANEL 2022-04-04 18:35:00 Nolvia Husain [facility] ([id number]) Medical Branch LIPASE 2022-04-04 18:35:[address] [facility] TEST, SERUM 2022-04-04 18:35:00 Nolvia Husain [facility] Medical Branch CBC WITH DIFF 2022-04-04 18:20:[address] [facility] CBC WITH DIFF 2022-04-04 18:20:[address] [facility] EMERGENCY SERVICES 2022-04-04 05:01:00 Doctor Fidel, [facility] AGREEMENTS AND [facility] AUTHORIZATIONS EMERGENCY DEPARTMENT 2022-04-04 05:01:00 Doctor Fidel, [facility] DOCUMENTS [facility] EMERGENCY SERVICES 2022-04-04 05:01:00 Doctor Fidel, [facility] AGREEMENTS AND [facility] AUTHORIZATIONS EMERGENCY DEPARTMENT 2022-04-04 05:01:00 Doctor Fidel, [facility] DOCUMENTS [facility] POCT TEST 2022-04-01 04:37:00 Deonna Melendrez [facility] POCT TEST 2022-04-01 04:37:00 Deonna Melendrez [facility] Medical Branch LIPASE 2022-04-01 04:36:[address] [facility] COMP. METABOLIC PANEL 2022-04-01 04:36:00 Deonna Melendrez [facility] ([id number]) Medical Branch CBC WITH DIFF 2022-04-01 04:36:[address] [facility] URINALYSIS 2022-04-01 04:36:[address] [facility] CBC WITH DIFF 2022-04-01 04:36:[address] [facility] COMP. METABOLIC PANEL 2022-04-01 04:36:00 Deonna Melendrez [facility] ([id number]) Medical Branch URINALYSIS 2022-04-01 04:36:[address] [facility] LIPASE 2022-04-01 04:36:[address] [facility] NOTICE OF PRIVACY 2022-04-01 03:37:12 Doctor Fidel, [facility] NOTICE OF PRIVACY 2022-04-01 03:37:12 Doctor Unassigned, [facility] CONSENT/REFUSAL FOR 2022-04-01 03:36:55 Doctor Fidel [facility] DIAGNOSIS AND TREATMENT [facility] CONSENT/REFUSAL FOR 2022-04-01 03:36:55 Doctor Fidel, [facility] DIAGNOSIS AND TREATMENT [facility] [place] EMERGENCY SERVICES 2022-03-31 05:01:00 Doctor Fidel, [facility] AGREEMENTS AND [facility] AUTHORIZATIONS SARS-COV-2 COVID-19 2022-03-17 16:49:14 Doctor Fidel [facility] MIKE-SUCROSE VACCINE 12 [facility] YRS+, BIVALENT 0.3ML, IM, (PFIZER ARITA TOP BOOSTER) SARS-COV-2 COVID-19 2022-03-17 16:49:14 Doctor RosamariassRama gaam [facility] MIKE-SUCROSE VACCINE 12 [facility] YRS+, BIVALENT 0.3ML, IM, (PFIZER ARITA TOP BOOSTER) XR PELVIS 3+ VW 2022-02-24 18:13:00 Bouchra Mcintosh [place] o f [facility] EXTERNAL PROVIDER RECORDS 2022-02-22 05:01:00 Doctor Fidel [facility] EMERGENCY SERVICES 2022-01-23 05:01:00 Doctor Fidel [facility] AGREEMENTS AND [facility] AUTHORIZATIONS EMERGENCY DEPARTMENT 2022-01-23 05:01:00 Doctor Parra [facility] DOCUMENTS [facility] Encounters Start End Encounter Admission Attending Care Care Encounter Source Date/Time Date/Time Type Type Clinicians Facility Department ID 2021-11-02 Outpatient [facility] [id number] [place] 11:00:33 [id number] [facility] 2021-07-09 Inpatient [facility] [id number] [facility] 12:46:00 14 2021-05-25 Inpatient [facility] [id number] [facility] 23:19:00 94 2021-04-30 Emergency [facility] [id number] [facility] 2022-06-16 Outpatient R FREDERICK [facility] [id number] Univers 10:45:00 10:45:00 VIGNESH ity [facility] 2022-06-13 2022-06-13 Outpatient R REYNALDO, [facility] [id number] Univers 11:00:00 11:34:17 JAMES adrian o [facility] 2022-06-13 2022-06-13 Travel 1.2.840.1 [id number] Univers 00:00:00 00:00:00 [id number] ity of 3.104.2.7 [place][id number] 084.8 Medica l .8 [place] 2022-05-31 2022-06-01 Emergency X SIMON RUST ERT [id number] Univers 22:37:00 00:11:00 DEONNA ity of [facility] 2022-05-31 2022-06-01 Emergency Melendrez, 1.2.840.9 [id number] Univers 22:37:00 00:11:00 Deonna S [id number] ity of 3.104.2.7 [place] .[id number] Medica l .8 [place] 2022-05-31 2022-05-31 Travel 1.2.840.1 [id number] Univers 00:00:00 00:00:00 [id number] ity of 3.104.2.7 4[place]7.3.698 [place] .3.107252 084.8 Medica l .8 [place] 2022-05-23 2022-05-[address] [facility] [id number] Univers 10:15:00 10:15:00 JAMES erickson o f [facility] 2022-05-19 2022-05-19 [facility], 1.2.840.9 [id number] Univers 10:33:33 23:59:00 Encounter Bouchra [id number] it y of 3.104.2.7 [place] .3.853713 [facility] [place] 2022-05-19 2022-05-19 Office Arnaldo, 1.2.840.1 [id number] Univers 12:50:00 12:50:00 Visit Bouchra 06308.1.1 ity of 3.104.2.7 [place] .3.059288 [facility] [place] 2022-05-19 2022-05-19 [facility] [id number] Univers 12:50:00 12:42:46 BOUCHRA erickson [facility] 2022-05-19 2022-05-19 Travel 1.2.840.1 1.2.759.378 9020 [id number] Univers 00:00:00 00:00:00 73176.1.1 350.1.13.10 ity of 3.104.2.7 [place].3.698 [place].7212[place] 084.8 [facility] [facility] [place] 2022-05-02 2022-05-02 Outpatient R REYNALDO, [facility] [id number] Univers 08:45:00 09:32:43 JAMES ity o f [facility] [place] [facility] 2022-05-02 2022-05-02 Travel 1.2.840.1 1.2.298.636 0424 1874 Univers 00:00:00 00:00:00 50280.1.1 350.1.13.10 ity of 3.104.2.7 [place].3.698 [place].14[place] 084.8 [facility] [facility] [place] 2022-04-21 2022-04-21 [facility] [id number] Univers 15:08:38 23:59:00 BOUCHRA ity of [facility] [place] [facility] 2022-04-21 2022-04-21 [facility], 1.2.840.6 [id number] Univers 15:08:38 23:59:00 Encounter Bouchra 35850.1.1 it y of 3.104.2.7 [place] .3.896518 [facility] [place] 2022-04-21 2022-04-21 [facility], 1.2.840.8 [id number] [id number] Univers 15:20:00 16:19:45 Visit Bouchra 84490.1.1 ity of 3.104.2.7 [place] .3.921072 [facility] [place] 2022-04-21 2022-04-21 Travel 1.2.840.1 1.2.916.927 7698 0847 Univers 00:00:00 00:00:00 12208.1.1 350.1.13.10 ity of 3.104.2.7 [place]7.3.698 [place].905[place] 084.8 [facility] [place] 2022-04-10 2022-04-10 Emergency X ROBLEDO, RUST ERT [id number] Univers 17:11:00 22:14:00 IRASEMA ity of [facility] [place] [facility] 2022-04-10 2022-04-10 Emergency Robledo, 1.2.840.9 [id number] Univers 17:11:00 22:14:00 Irasema 79584.1.1 ity of 3.104.2.7 [place] .3.009925 [facility] [place] 2022-04-10 2022-04-10 Urgent MariShivani 1.2.840.1 24112 [id number] Univers 16:40:00 18:22:07 [facility] 39374.1.1 ity of 3.104.2.7 [place] .3.639111 [facility] [place] 2022-04-10 2022-04-10 [facility] [id number] Univers 16:40:00 16:40:00 SHIVANI bernaly o f [facility] [place] [facility] 2022-04-10 2022-04-10 Travel 1.2.840.1 1.2.212.926 2305 4834 Univers 00:00:00 00:00:00 44202.1.1 350.1.13.10 ity of 3.104.2.7 [place]7.3.698 [place].0465[place] 084.8 [facility] [place] 2022-04-08 2022-04-08 Transition Moise, 1.2.840.6 [id number] Univers 00:00:00 00:00:00 of Care Negrita 22693.1.1 i ty of 3.104.2.7 [place] .3.343889 [facility] [place] 2022-04-04 2022-04-07 Hospital Person, 1.2.840.3 [id number] Univers 17:33:00 17:00:00 Encounter Keagan 61600.1.1 it y of 3.104.2.7 [place] .3.806652 [facility] [place] 2022-04-06 2022-04-06 [facility], 1.2.840.2 [id number] Univers 00:00:00 00:00:00 Management Care 82249.1.1 i ty of Transition 3.104.2.7 Harley as .3.565556 [facility] [place] 2022-04-04 2022-04-04 [facility] [id number] Univers 12:41:00 16:56:00 NOLVIA ity [facility] 2022-04-04 2022-04-04 Emergency [facility] [id number] Univers 12:41:00 16:56:00 NOLVIA ity [facility] 2022-04-04 2022-04-04 Emergency Husain, 1.2.840.2 [id number] Univers 12:41:00 16:56:00 Nolvia 70617.1.1 ity of 3.104.2.7 [place] .3.603697 [facility] [place] 2022-04-04 2022-04-04 Travel 1.2.840.1 1.2.522.114 2429 3840 Univers 00:00:00 00:00:00 32239.1.1 350.1.13.10 ity of 3.104.2.7 [place]7.3.698 [place] 084.8 [facility] [place] 2022-03-31 2022-04-01 Emergency [facility] [id number] Univers 22:46:00 01:29:00 DEONNA ity of [facility] [place] [facility] 2022-03-31 2022-04-01 Emergency Melendrez, 1.2.840.6 [id number] Univers 22:46:00 01:29:00 Deonna Lopez 98351.1.1 ity of 3.104.2.7 [place] .3.956357 [facility] [place] 2022-03-31 2022-03-31 Orders Doctor 1.2.840.2 [id number] Univers 00:00:00 00:00:00 Only Unassigned, 30963.1.1 ity of [place] 3.104.2.7 [place] .3.395783 [facility] [place] 2022-03-31 2022-03-31 Travel 1.2.840.1 1.2.616.456 5500 0137 Univers 00:00:00 00:00:00 58497.1.1 350.1.13.10 ity of 3.104.2.7 4.[place]7.3.698 [place]3.173317 084.8 [facility] [place] 2022-03-28 2022-03-28 Outpatient R REYNALDO [facility] [id number] Univers 10:15:00 12:05:24 JAMES ity o f [facility] [place] [facility] 2022-03-28 2022-03-28 Travel 1.2.840.1 1.2.114.024 9120 [id number] Univers 00:00:00 00:00:00 14805.1.1 350.1.13.10 ity of 3.104.2.7 [place].7.3.698 [place]3.4459[place] 084.8 [facility] [place] 2022-03-17 2022-03-17 Imm/Inj Vignesh Mack P 1.2.840.1 [id number] Univers 11:30:00 12:25:54 [facility] 83172.1.1 ity of 3.104.2.7 [place] .3.058203 [facility] [place] 2022-03-17 2022-03-17 [facility] [id number] Univers 10:30:00 11:13:04 VIGNESH ity of [facility] [place] [facility] 2022-03-17 2022-03-17 Travel 1.2.840.1 1.2.565.019 2658 0034 Univers 00:00:00 00:00:00 99289.1.1 350.1.13.10 ity of 3.104.2.7 [place]7.3.698 [place]3.8538[place] 084.8 [facility] [place] 2022-02-24 2022-02-24 [facility], 1.2.840.9 [id number] Univers 13:02:19 23:59:00 Encounter Bouchra 06085.1.1 it y of 3.104.2.7 [place] .3.316242 [facility] [place] 2022-02-24 2022-02-24 [facility], 1.2.840.4 [id number] Univers 13:02:19 23:59:00 Encounter Bouchra 72351.1.1 it y of 3.104.2.7 [place] .3.904222 [facility] .[facility] [place] 2022-02-24 2022-02-24 [facility] [id number] Univers 13:00:00 14:33:28 BOUCHRA ity of [facility] [place] [facility] 2022-02-24 2022-02-24 [facility], 1.2.840.6 [id number] [id number] Univers 13:00:00 14:33:28 Visit Bouchra 22869.1.1 ity of 3.104.2.7 [place] .3.793335 [facility] [place] 2022-02-24 2022-02-24 [facility] [id number] Univers 13:00:00 13:00:00 BOUCHRA ity of [facility] [place] [facility] 2022-02-24 2022-02-24 Travel 1.2.840.1 1.2.662.173 2766 4498 Univers 00:00:00 00:00:00 72969.1.1 350.1.13.10 ity of 3.104.2.7 [place].7.3.698 [place]3.4550[place] 084.8 [facility] [place] 2022-02-22 2022-02-22 Orders Doctor 1.2.840.1 [id number] Univers 00:00:00 00:00:00 Only Unassigned, 96695.1.1 ity of [place] 3.104.2.7 [place] .3.178233 [facility] [place] 2022-02-22 2022-02-22 Orders Doctor 1.2.840.9 [id number] Univers 00:00:00 00:00:00 Only Unassigned, 81519.1.1 ity of [place] 3.104.2.7 [place] .3.388640 [facility] [place] 2022-02-21 2022-02-21 Outpatient R SELF, [facility] [id number] Univers 08:00:00 08:48:33 JAMES ity o f [facility] [place] [facility] 2022-02-21 2022-02-21 Travel 1.2.840.1 1.2.727.309 5939 9562 Univers 00:00:00 00:00:00 08456.1.1 350.1.13.10 ity of 3.104.2.7 4.2.7.3.698 [place] .3.7774[place] 084.8 [facility] [place] 2022-02-21 2022-02-21 Travel 1.2.840.1 1.2.379.037 5644 9562 Univers 00:00:00 00:00:00 21666.1.1 350.1.13.10 ity of 3.104.2.7 4.[place].7.3.698 [place] .3.753940 084.8 [facility] [place] 2022-01-23 2022-01-23 Emergency X Kitty KESSLER RUST ERT [id number] Univers 19:42:00 21:04:00 ity of [facility] [place] [facility] 2022-01-23 2022-01-23 Emergency Kitty Kessler 1.2.840.5 [id number] Univers 19:42:00 21:04:00 Bree 76399.1.1 ity of 3.104.2.7 [place] .3.791860 [facility] [place] 2022-01-23 2022-01-23 Emergency Kitty Kessler 1.2.840.8 [id number] Univers 19:42:00 21:04:00 Bree 18465.1.1 ity of 3.104.2.7 [place] .3.421946 [facility] [place] 2022-01-23 2022-01-23 Travel 1.2.840.1 1.2.146.708 5441 2965 Univers 00:00:00 00:00:00 78221.1.1 350.1.13.10 ity of 3.104.2.7 4.[place].7.3.698 [place] .3.713369 084.8 [facility] [place] 2022-01-23 2022-01-23 Travel 1.2.840.1 1.2.116.363 4936 2965 Univers 00:00:00 00:00:00 25582.1.1 350.1.13.10 ity of 3.104.2.7 4.[place].7.3.698 [place] .3.339017 084.8 [facility] [place] 2022-01-17 2022-01-17 Outpatient R SELF, [facility] [id number] Univers 10:15:00 11:23:04 JAMES erickson o [facility] 2022-01-17 2022-01-17 Outpatient R SELF, [facility] [id number] Univers 10:15:00 11:23:04 JAMES erickson o [facility] 2022-01-17 2022-01-17 Travel 1.2.840.1 1.2.292.400 5193 6960 Univers 00:00:00 00:00:00 36267.1.1 350.1.13.10 ity of 3.104.2.7 4.[place].7.3.698 [place] .3.177630 084.8 [facility] [place] 2022-01-17 2022-01-17 Travel 1.2.840.1 1.2.176.184 2647 6960 Univers 00:00:00 00:00:00 22121.1.1 350.1.13.10 ity of 3.104.2.7 4.[place].7.3.698 [place] .3.390701 084.8 [facility] [place] 2021-12-31 2021-12-31 Outpatient R ASH RAMIREZ [facility] [id number] [id number] Univers 16:00:00 17:22:54 ity of [facility] [place] [facility] 2021-12-31 2021-12-31 Office Ash Ramirez 1.2.840.9 [id number] Univers 16:00:00 17:22:54 Visit Maggie Brooks 44722.1.1 ity of 3.104.2.7 [place] .3.173996 [facility] [place] 2021-12-31 2021-12-31 Office Ash Ramirez 1.2.840.1 [id number] Univers 16:00:00 17:22:54 Visit Maggie Brooks 65520.1.1 ity of 3.104.2.7 [place] .3.100306 [facility] [place] 2021-12-31 2021-12-31 Outpatient R ASH RAMIREZ [facility] 944 [id number] Univers 16:00:00 16:00:00 ity of [facility] [place] [facility] 2021-12-31 2021-12-31 Travel 1.2.840.1 1.2.021.473 2291 7179 Univers 00:00:00 00:00:00 20329.1.1 350.1.13.10 ity of 3.104.2.7 4.2.7.3.698 [place] .3.189981 084.8 [facility] .[facility] [place] 2021-12-31 2021-12-31 Travel 1.2.840.1 1.2.857.235 6073 7179 Univers 00:00:00 00:00:00 56782.1.1 350.1.13.10 ity of 3.104.2.7 4.2.7.3.698 [place] .3.135851 084.8 [facility] [place] 2021-12-20 2021-12-20 Outpatient R SELF, [facility] [id number] Univers 10:30:00 11:58:18 JAMES ity o f [facility] [place] [facility] 2021-12-20 2021-12-20 Travel 1.2.840.1 1.2.839.603 0073 9777 Univers 00:00:00 00:00:00 84388.1.1 350.1.13.10 ity of 3.104.2.7 4.2.7.3.698 [place] .3.265314 084.8 [facility] .[facility] [place] 2021-12-20 2021-12-20 Travel 1.2.840.1 1.2.497.567 6341 9777 Univers 00:00:00 00:00:00 73838.1.1 350.1.13.10 ity of 3.104.2.7 4.2.7.3.698 [place] .3.137448 084.8 [facility] l .[facility] [place] 2021-12-20 2021-12-20 Travel 1.2.840.1 1.2.112.743 6468 9777 [facility] 00:00:00 00:00:00 23506.1.1 350.1.13.10 ity of 3.104.2.7 4.2.7.3.698 [place] .3.673242 084.8 [facility] l .[facility] [place] 2021-12-13 2021-12-13 [facility] [id number] [facility] 08:00:00 08:00:00 HANDY itadrian [facility] 2021-12-06 2021-12-06 Urgent Shivani Guerra 1.2.840.1 [id number] [facility] 12:00:00 12:16:45 Akiko Gonzalez 90578.1.1 ity of 3.104.2.7 [place] .3.611213 [facility] [place] 2021-12-06 2021-12-06 Urgent Shivani Guerra 1.2.840.1 [id number] [id number] Univers 12:00:00 12:16:45 Akiko Gonzalez 90142.1.1 ity of 3.104.2.7 [place] .3.746038 [facility] [place] 2021-12-06 2021-12-06 [facility] [id number] Univers 12:00:00 12:16:45 AKIKO erickson [facility] 2021-12-06 2021-12-06 Urgent Shivani Guerra 1.2.840.1 63574 [id number] [facility] 12:00:00 12:16:45 Akiko Gonzalez 08362.1.1 ity of 3.104.2.7 [place] .3.061561 [facility] [place] 2021-12-06 2021-12-06 Travel 1.2.840.1 1.2.344.517 0006 2730 Univers 00:00:00 00:00:00 43995.1.1 350.1.13.10 ity of 3.104.2.7 4.2.7.3.698 [place] .3.180129 084.8 [facility] l .[facility] [place] 2021-12-06 2021-12-06 Travel 1.2.840.1 1.2.935.389 7438 2730 Univers 00:00:00 00:00:00 24114.1.1 350.1.13.10 ity of 3.104.2.7 4.2.7.3.698 [place] .3.081334 084.8 [facility] l .[facility] [place] 2021-12-06 2021-12-06 Travel 1.2.840.1 1.2.034.245 1030 2730 Univers 00:00:00 00:00:00 26944.1.1 350.1.13.10 ity of 3.104.2.7 4.2.7.3.698 [place] .3.196107 084.8 [facility] .[facility] [place] 2021-11-26 2021-11-26 Office FishAsh 1.2.840.2 [id number] Univers 15:00:00 15:40:48 Visit 79295.1.1 ity of 3.104.2.7 [place] .3.665130 [facility] [place] 2021-11-26 2021-11-26 Outpatient R FISHANTONION [facility] 326 [id number] Univers 15:00:00 15:40:48 ity of [facility] [place] [facility] 2021-11-26 2021-11-26 Office Fish, Ash 1.2.840.7 [id number] Univers 15:00:00 15:40:48 Visit 88215.1.1 ity of 3.104.2.7 [place] .3.127748 [facility] [place] 2021-11-26 2021-11-26 Outpatient R ASH RAMIREZ [facility] [id number] Univers 15:00:00 15:00:00 ity of [facility] [place] [facility] 2021-11-26 2021-11-26 Travel 1.2.840.1 1.2.197.124 8879 4215 Univers 00:00:00 00:00:00 88835.1.1 350.1.13.10 ity of 3.104.2.7 4.2.7.3.698 [place] .3.623847 084.8 [facility] l .[facility] [place] 2021-11-26 2021-11-26 Travel 1.2.840.1 1.2.686.214 0666 4215 Univers 00:00:00 00:00:00 74986.1.1 350.1.13.10 ity of 3.104.2.7 4.2.7.3.698 [place] .3.120030 084.8 [facility] l .[facility] [place] 2021-11-23 2021-11-23 Outpatient R ASH RAMIREZ [facility] [id number] Univers 14:00:00 14:00:00 ity of [facility] [place] [facility] 2021-11-19 2021-11-19 [place] 38922.2.840.9 [id number] Univers 17:58:13 23:59:00 Encounter Vania 29318.1.1 it y of 3.104.2.7 [place] .3.978923 [facility] [place] 2021-11-19 2021-11-19 Outpatient R LOGAN [facility] [id number] Univers 17:58:13 23:59:00 RANIA ity of [facility] [place] [facility] 2021-11-19 2021-11-19 [facility] 1.2.481.313 4808 4616 Univers 17:58:13 23:59:00 Encounter Jasenia [facility] 350.1.13.10 ity of [place] 4.2.7.2.686 Harley as OLIVIA?BLEA [id number] Me dical KNEY [address] [place] [facility] 2021-11-19 2021-11-19 [facility] 1.2.840.0 [id number] Univers 17:58:13 23:59:00 Encounter Vania 14399.1.1 it y of 3.104.2.7 [place] .3.956840 [facility] .[facility] [place] 2021-11-19 2021-11-19 Urgent Ebrahim, 1.2.840.2 [id number] [id number] Univers 17:20:00 18:04:46 Care Vania 12382.1.1 ity of 3.104.2.7 [place] .3.045390 [facility] [place] 2021-11-19 2021-11-19 Urgent Ebrahim, RUST 1.2.840.114 58995 [id number] Univers 17:20:00 18:04:46 Care Vania [facility] 350.1.13.10 it y of [facility] 4.2.7.2.686 Harley as OLIVIA?BLEA [id number] Ut dical KNEY [address] [place] [facility] 2021-11-19 2021-11-19 Urgent Ebrahim, 1.2.840.6 [id number] Univers 17:20:00 18:04:46 Care Vania 25317.1.1 ity of 3.104.2.7 [place] .3.571889 [facility] [place] 2021-11-19 2021-11-19 Travel 1.2.840.1 1.2.962.068 2739 4086 Univers 00:00:00 00:00:00 87845.1.1 350.1.13.10 ity of 3.104.2.7 4.2.7.3.698 [place] .3.383922 084.8 [facility] l .8 [place] 2021-11-19 2021-11-19 Travel 1.2.840.1 1.2.865.172 8165 4086 Univers 00:00:00 00:00:00 00901.1.1 350.1.13.10 ity of 3.104.2.7 4.2.7.3.698 [place] .3.563647 084.8 [facility] l .[facility] [place] 2021-11-17 2021-11-17 Outpatient R LUCINDA WILLS [facility] [id number] Univers 14:45:00 14:45:00 ity of [facility] [place] [facility] 2021-11-17 2021-11-17 Outpatient R LUCINDA WILLS [facility] [id number] Univers 14:45:00 14:45:00 ity of [facility] [place] [facility] 2021-11-16 2021-11-16 Telephone Lucinda Wills 1.2.840.3 [id number] Univers 00:00:00 00:00:00 Cam 41372.1.1 ity of 3.104.2.7 [place] .3.210371 [facility] .[facility] [place] 2021-11-16 2021-11-16 Telephone Lucinda Wills 1.2.840.6 [id number] Univers 00:00:00 00:00:00 Cam 40058.1.1 ity of 3.104.2.7 [place] .3.079461 [facility] [place] 2021-11-16 2021-11-16 Telephone Wills Lucinda 1.2.840.7 [id number] Univers 00:00:00 00:00:00 Cam 71299.1.1 ity of 3.104.2.7 [place] .3.924924 [facility] [place] 2021-11-08 2021-11-08 Outpatient R REYNALDO [facility] [id number] Univers 11:15:00 11:40:32 JAMES ity o f [facility] [place] [facility] 2021-11-08 2021-11-08 Travel 1.2.840.1 1.2.148.456 6636 9142 Univers 00:00:00 00:00:00 57386.1.1 350.1.13.10 ity of 3.104.2.7 4.2.7.3.698 [place] .3.309003 084.8 [facility] l .8 [place] 2021-11-08 2021-11-08 Travel 1.2.840.1 1.2.778.096 7892 9142 Univers 00:00:00 00:00:00 27079.1.1 350.1.13.10 ity of 3.104.2.7 4.2.7.3.698 [place] .3.898783 084.8 [facility] l .8 [place] 2021-11-08 2021-11-08 Travel 1.2.840.1 1.2.090.178 5579 9142 Univers 00:00:00 00:00:00 00986.1.1 350.1.13.10 ity of 3.104.2.7 4.2.7.3.698 [place] .3.587937 084.8 [facility]ica l .8 [place] 2021-10-29 2021-10-29 Office Lucinda Wills 1.2.840.2 [id number] Univers 13:00:00 13:28:21 Visit Cam 47015.1.1 ity of 3.104.2.7 [place] .3.451245 [facility]ica [facility] .[facility] [place] 2021-10-29 2021-10-29 Office Lucinda Wills 1.2.840.9 [id number] [id number] Univers 13:00:00 13:28:21 Visit Cam 00765.1.1 ity of 3.104.2.7 [place] .3.372827 [facility] l .[facility] [place] 2021-10-29 2021-10-29 Outpatient R LUCINDA WILLS [facility] [id number] Univers 13:00:00 13:28:21 ity of [facility] [place] [facility] 2021-10-29 2021-10-29 Office Lucinda Wills 1.2.840.7 [id number] [id number] Univers 13:00:00 13:28:21 Visit Cam 18832.1.1 ity of 3.104.2.7 [place] .3.341874 [facility]ica [facility] .[facility] [place] 2021-10-29 2021-10-29 Outpatient R LUCINDA WILLS [facility] [id number] Univers 13:00:00 13:00:00 ity of [facility] [place] [facility] 2021-10-29 2021-10-29 Outpatient R LUCINDA WILLS [facility] [id number] Univers 13:00:00 13:00:00 ity of [facility] [place] [facility] 2021-10-29 2021-10-29 Travel 1.2.840.1 1.2.229.644 2092 6547 [facility] 00:00:00 00:00:00 78320.1.1 350.1.13.10 ity of 3.104.2.7 4.2.7.3.698 [place] .3.748628 084.8 Medica l .8 [place] 2021-10-29 2021-10-29 Travel 1.2.840.1 1.2.278.673 4779 6547 Univers 00:00:00 00:00:00 98129.1.1 350.1.13.10 ity of 3.104.2.7 4.2.7.3.698 [place] .3.158614 084.8 Medica l .8 [place] 2021-10-29 2021-10-29 Travel 1.2.840.1 1.2.741.826 1094 6547 [facility] 00:00:00 00:00:00 94992.1.1 350.1.13.10 ity of 3.104.2.7 4.2.7.3.698 [place] .3.704612 084.8 Medica l .8 [place] 2021-10-27 2021-10-27 Outpatient R SHIVANI VAUGHN [facility] [id number] Univers 14:30:00 15:05:35 SHIVANI VAUGHN [facility] 2021-10-27 2021-10-27 Outpatient R SHIVNAI VAUGHN [facility] [id number] Univers 14:30:00 14:30:00 SHIVANI VAUGHN [facility] 2021-10-27 2021-10-27 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 Pat Patel 1.2.840.1 [id number] Univers 12:30:00 12:45:00 Visit Pcp-Lab 19348.1.1 ity of 3.104.2.7 [place] .3.651320 Medica l .8 [place] 2021-10-27 2021-10-27 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 Pat Patel 1.2.840.1 [id number] [facility] [place] 12:30:00 12:45:00 Visit Pcp-Lab 94598.1.1 ity of 3.104.2.7 [place] .3.134753 Medica l .8 [place] 2021-10-27 2021-10-27 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 Pat Patel 1.2.840.1 [id number] [facility] [place] 12:30:00 12:45:00 Visit Pcp-Lab 61942.1.1 ity of 3.104.2.7 [place] .3.441080 Medica l .8 [place] 2021-10-27 2021-10-27 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 Pat Patel 1.2.840.1 [id number] [facility] [place] 12:30:00 12:45:00 Visit Pcp-Lab 69453.1.1 ity of 3.104.2.7 [place] .3.135148 Medica l .8 [place] 2021-10-27 2021-10-27 Travel 1.2.840.1 1.2.271.656 6690 7104 [facility] [place] 00:00:00 00:00:00 47126.1.1 350.1.13.10 ity of 3.104.2.7 [place].3.698 [place] .3.820846 084.8 [place] .8 [place] 2021-10-27 2021-10-27 Travel 1.2.840.1 1.2.822.296 5672 [id number] Univers 00:00:00 00:00:00 03665.1.1 350.1.13.10 ity of 3.104.2.7 4.[place].7.3.698 [place] .3.464047 084.8 Medica l .8 [place] 2021-10-27 2021-10-27 Travel 1.2.840.1 1.2.118.268 5149 7104 [facility] [place] 00:00:00 00:00:00 28661.1.1 350.1.13.10 ity of 3.104.2.7 4.[place]7.3.698 [place] .3.563997 084.8 Medica [place] .8 [place] 2021-10-27 2021-10-27 Travel 1.2.840.1 1.2.334.716 9155 7104 [facility] [place] 00:00:00 00:00:00 04790.1.1 350.1.13.10 ity of 3.104.2.7 4.[place].7.3.698 [place] .3.355220 084.8 Medica l .8 [place] 2021-10-06 2021-10-06 Outpatient R SHIVANI VAUGHN [facility] [id number] [facility] [place] 15:15:00 16:31:02 SHIVANI VAUGHN ity [facility] 2021-10-06 2021-10-06 Travel 1.2.840.1 1.2.022.936 9090 3199 [facility] [place] 00:00:00 00:00:00 14116.1.1 350.1.13.10 ity of 3.104.2.7 4.2.7.3.698 [place] .3.535963 084.8 Medica l .8 [place] 2021-10-06 2021-10-06 Travel 1.2.840.1 1.2.258.855 3303 3199 [facility] [place] 00:00:00 00:00:00 96574.1.1 350.1.13.10 ity of 3.104.2.7 4.2.7.3.698 [place] .3.829051 084.8 Medica l .8 [place] 2021-10-06 2021-10-06 Travel 1.2.840.1 1.2.335.771 5388 3199 [facility] [place] 00:00:00 00:00:00 45989.1.1 350.1.13.10 ity of 3.104.2.7 4.2[place]7.3.698 [place] .3.750206 084.8 [place]ica l .8 [place] 2021-09-13 2021-09-13 Outpatient R REYNALDO [facility] [id number] Univers 11:00:00 11:00:00 JAMES ity o f [facility] [place] [facility] 2021-09-02 2021-09-02 Outpatient R GEOVANNI, [facility] [id number] Univers 13:00:00 13:00:00 HONORIO ity [facility] 2021-09-02 2021-09-02 Outpatient R GEOVANNI, [facility] [id number] Univers 13:00:00 13:00:00 HONORIO ity [facility] 2021-09-02 2021-09-02 Travel 1.2.840.1 1.2.079.804 0601 361 [facility] 00:00:00 00:00:00 24598.1.1 350.1.13.10 ity of 3.104.2.7 4.[place]7.3.698 [place] .3.538576 084.8 [place] l .8 [place] 2021-09-02 2021-09-02 Travel 1.2.840.1 1.2.645.908 8657 361 [facility] 00:00:00 00:00:00 74348.1.1 350.1.13.10 ity of 3.104.2.7 4.2.7.3.698 [place] .3.772092 084.8 Medica l .8 [place] 2021-09-02 2021-09-02 Travel 1.2.840.1 1.2.817.963 9648 361 [facility] 00:00:00 00:00:00 64365.1.1 350.1.13.10 ity of 3.104.2.7 4.[place]7.3.698 [place] .3.459860 084.8 [place] l .8 [place] 2021-08-26 2021-08-26 [facility] [id number] Univers 12:59:32 23:59:00 BOUCHRA erickson [facility] 2021-08-26 2021-08-26 [facility] Arnaldo, 1.2.840.9 [id number] Univers 12:59:32 23:59:00 [facility] Bouchra 77072.1.1 it y of 3.104.2.7 [place] .3.617215 Medica l .8 [place] 2021-08-26 2021-08-26 [facility], 1.2.840.1 [id number] Univers 12:59:32 23:59:00 Encounter Bouchra 68913.1.1 it y of 3.104.2.7 [place] .3.645609 Medica l .8 [place] 2021-08-26 2021-08-26 [facility], 1.2.840.7 [id number] Univers 12:59:32 23:59:00 Encounter [place] 11485.1.1 it y of 3.104.2.7 [place] .3.203621 [facility] [place] 2021-08-26 2021-08-26 [facility] [id number] Univers 13:00:00 13:47:55 BOUCHRA ity of [facility] [place] [facility] 2021-08-26 2021-08-26 Office [facility], 1.2.840.2 [id number] [id number] Univers 13:00:00 13:47:55 Visit Bouchra 26243.1.1 ity of 3.104.2.7 [place] .3.405389 [facility] [place] 2021-08-26 2021-08-26 [facility] [id number] Univers 13:00:00 13:47:55 BOUCHRA ity of [facility] [place] [facility] 2021-08-26 2021-08-26 Office [facility], 1.2.840.6 [id number] [id number] Univers 13:00:00 13:47:55 Visit Bouchra 68996.1.1 ity of 3.104.2.7 [place] .3.235123 [facility] [place] 2021-08-26 2021-08-26 Travel 1.2.840.1 1.2.609.279 7910 7347 Univers 00:00:00 00:00:00 99898.1.1 350.1.13.10 ity of 3.104.2.7 [place]7.3.698 [place]3.[place]39[place] 084.8 [place] .[facility] [place] 2021-08-26 2021-08-26 Travel 1.2.840.1 1.2.722.717 2021 7347 Univers 00:00:00 00:00:00 62659.1.1 350.1.13.10 ity of 3.104.2.7 4.[place].7.3.698 [place].475193 084.8 [place] .[facility] [place] 2021-08-26 2021-08-26 Travel 1.2.840.1 1.2.419.403 6472 7347 Univers 00:00:00 00:00:00 81207.1.1 350.1.13.10 ity of 3.104.2.7 4.2.7.3.698 [place].188[place] 084.8 [facility] [facility] [place] 2021-08-03 2021-08-03 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 Tasha [facility]UST 1.2.8 40.114 [id number] Univers 17:15:00 17:30:00 Visit Shivani Vaughn [facility] 350.1.13.10 [place].686 [place] [id number] Ut dical NAL [facility] 2021-08-03 2021-08-03 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 Shivani Vaughn 1.2.840.4 [id number] Univers 17:15:00 17:30:00 Visit Tasha [facility] 04174.1.1 ity of 3.104.2.7 [place] .3.705331 [facility] .[facility] [place] 2021-08-03 2021-08-03 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 Shivani Vaughn 1.2.840.6 [id number] Univers 17:15:00 17:30:00 Visit Tasha [facility] 78398.1.1 ity of 3.104.2.7 [place] .3.833060 [facility] [place] 2021-08-03 2021-08-03 Gerda R SHIVANI VAUGHN [facility] [id number] Univers 17:15:00 17:15:00 SHIVANI VAUGHN ity of [facility] [place] [facility] 2021-08-02 2021-08-02 Outpatient R REYNALDO, [facility] [id number] Univers 10:15:00 11:07:50 JAMES ity o f [facility] [place] [facility] 2021-08-02 2021-08-02 Travel 1.2.840.1 1.2.687.131 2444 6890 Univers 00:00:00 00:00:00 59395.1.1 350.1.13.10 ity of 3.104.2.7 4.2.7.3.698 [place]3.116020 084.8 [facility] [facility] .[facility] [place] 2021-08-02 2021-08-02 Travel 1.2.840.1 1.2.656.006 2078 6890 Univers 00:00:00 00:00:00 24544.1.1 350.1.13.10 ity of 3.104.2.7 4.2.7.3.698 [place]3.2848[place] 084.8 [facility] [facility] [place] 2021-08-02 2021-08-02 Travel 1.2.840.1 1.2.745.669 6019 6890 Univers 00:00:00 00:00:00 64119.1.1 350.1.13.10 ity of 3.104.2.7 4.2.7.3.698 [place]3.148368 084.8 [facility] [facility] [place] 2021-07-29 2021-07-29 Outpatient [facility] [id number] Univers 13:26:56 23:59:00 BOUCHRA ity of [facility] [place] [facility] 2021-07-29 2021-07-29 [facility], 1.2.840.7 [id number] Univers 13:26:56 23:59:00 Encounter Bouchra 94080.1.1 it y of 3.104.2.7 [place] .3.623607 [facility] [place] 2021-07-29 2021-07-29 [facility], 1.2.840.3 [id number] Univers 13:26:56 23:59:00 Encounter Bouchra 69741.1.1 it y of 3.104.2.7 [place] .3.659400 [facility] .[facility] [place] 2021-07-29 2021-07-29 Hospital [facility], 1.2.840.6 [id number] Univers 13:26:56 23:59:00 Encounter Bouchra 11916.1.1 it y of 3.104.2.7 [place] .3.965168 [facility] [place] 2021-07-29 2021-07-29 Office [facility] 1.2.601.295 4014 [id number] Univers 13:20:00 15:16:49 Visit Bouchra ARELLANO 350.1.13.10 it y of CARE 4.2.7.2.686 Michelle VALDES [id number] Ut dical [address] [place] 2021-07-29 2021-07-29 Outpatient R [facility] [id number] Univers 13:20:00 15:16:49 BOUCHRA ity of [facility] [place] [facility] 2021-07-29 2021-07-29 Office [facility], 1.2.840.1 [id number] [id number] Univers 13:20:00 15:16:49 Visit Bouchra 66637.1.1 ity of 3.104.2.7 [place] .3.402625 [facility] [place] 2021-07-29 2021-07-29 Office [facility], 1.2.840.6 [id number] [id number] Univers 13:20:00 15:16:49 Visit Bouchra 62922.1.1 ity of 3.104.2.7 [place] .3.210375 [facility] [place] 2021-07-29 2021-07-29 Letter [facility], 1.2.840.8 [id number] [id number] Univers 00:00:00 00:00:00 (Out) Bouchra 28437.1.1 ity of 3.104.2.7 [place] .3.582049 [facility] [place] 2021-07-29 2021-07-29 Travel 1.2.840.1 1.2.170.029 6699 9351 Univers 00:00:00 00:00:00 44152.1.1 350.1.13.10 ity of 3.104.2.7 4.2.7.3.698 [place]3.1680[place] 084.8 [facility] [facility] [place] 2021-07-29 2021-07-29 Dustin Mcintosh, 1.2.840.0 [id number] [id number] Univers 00:00:00 00:00:00 (Out) Bouchra 77603.1.1 ity of 3.104.2.7 [place] .3.325137 [facility] [place] 2021-07-29 2021-07-29 Travel 1.2.840.1 1.2.137.977 2478 9351 Univers 00:00:00 00:00:00 64486.1.1 350.1.13.10 ity of 3.104.2.7 4.2.7.3.698 [place]3.634944 084.8 [facility] [place] 2021-07-29 2021-07-29 Dustin Mcintosh, 1.2.840.3 [id number] [id number] Univers 00:00:00 00:00:00 (Out) Bouchra 24275.1.1 ity of 3.104.2.7 [place] .3.822935 [facility] [place] 2021-07-29 2021-07-29 Travel 1.2.840.1 1.2.290.811 7400 9351 Univers 00:00:00 00:00:00 63755.1.1 350.1.13.10 ity of 3.104.2.7 4.2.7.3.698 [place]3.8429[place] 084.8 [facility] .[facility] [place] 2021-07-22 2021-07-22 [facility] 1.2.840.114 9 [id number] Univers 14:00:00 23:59:00 Ryan Burnham 350.1.13.10 ity of [place] 4.2.7.2.686 [facility] [id number] [facility] [address] [place] 2021-07-22 2021-07-22 [facility] 1.2.840.7 [id number] Univers 14:00:00 23:59:00 Encounter , Ryan 58045.1.1 it y of 3.104.2.7 [place] .3.338728 [facility] .[facility] [place] 2021-07-22 2021-07-22 [facility] 1.2.840.2 [id number] Univers 14:00:00 23:59:00 Encounter , Ryan 92615.1.1 it y of 3.104.2.7 [place] .3.411641 [facility] .[facility] [place] 2021-07-22 2021-07-22 [facility] 1.2.840.9 [id number] Univers 14:00:00 23:59:00 Encounter , Ryan 51543.1.1 it y of 3.104.2.7 [place] .3.070521 [facility] .[facility] [place] 2021-07-22 2021-07-22 [facility] 1.2.840.114 9 [id number] Univers 10:46:11 13:59:00 Encounter , Ryan SPECIALTY 350.1.13.10 ity of CARE 4.2.7.2.686 [facility] AT [phone] [facility] UNIQUE 809 [facility] 2021-07-22 2021-07-22 [facility] 1.2.840.9 [id number] Univers 10:46:11 13:59:00 Encounter , Ryan 52886.1.1 it y of 3.104.2.7 [place] .3.696366 [facility] [place] 2021-07-22 2021-07-22 [facility] 1.2.840.2 [id number] Univers 10:46:11 13:59:00 Encounter , Ryan 46421.1.1 it y of 3.104.2.7 [place] .3.526912 [facility] [place] 2021-07-22 2021-07-22 [facility] 1.2.840.0 [id number] Univers 10:46:11 13:59:00 Encounter , Ryan 23874.1.1 it y of 3.104.2.7 [place] .3.011841 [facility] [place] 2021-07-22 2021-07-22 Outpatient R GEOVANNI, [facility] [id number] Univers 13:00:00 13:45:02 HONORIO ity of [facility] [place] [facility] 2021-07-22 2021-07-22 Outpatient R GALARZA, [facility] [id number] Univers 13:00:00 13:45:02 HONORIO ity [facility] 2021-07-22 2021-07-22 Outpatient R GALARZA, [facility] [id number] Univers 13:00:00 13:00:00 HONORIO ity [facility] 2021-07-22 2021-07-22 Office Alijanipour 1.2.840.8 [id number] Univers 10:15:00 11:55:28 Visit , Ryan 02733.1.1 ity of 3.104.2.7 [place] .3.602010 [facility] .[facility] [place] 2021-07-22 2021-07-22 Outpatient R ALIJANIPOUR [facility] [id number] Univers 10:15:00 11:55:28 , RYAN ity [facility] 2021-07-22 2021-07-22 Office Alijanipour 1.2.840.5 [id number] Univers 10:15:00 11:55:28 Visit , Ryan 86900.1.1 ity of 3.104.2.7 [place] .3.874010 [facility] .[facility] [place] 2021-07-22 2021-07-22 Office Alijanipour 1.2.840.1 [id number] Univers 10:15:00 11:55:28 Visit , Ryan 88300.1.1 ity of 3.104.2.7 [place] .3.859621 [facility] .[facility] [place] 2021-07-22 2021-07-22 Outpatient R ALIJANIPOUR [facility] [id number] [id number] Univers 10:46:11 10:46:11 , RYAN ity [facility] 2021-07-22 2021-07-22 Outpatient R TATA [facility] [id number] Univers 10:15:00 10:15:00 , RYAN ity of [facility] [place] [facility] 2021-07-22 2021-07-22 Outpatient R ALIBRANDI [facility] [id number] [id number] Univers 10:15:00 10:15:00 , RYAN ity of [facility] [place] [facility] 2021-07-22 2021-07-22 Abstract Deloresvictorinaluz marina 1.2.840.1 [id number] Univers 00:00:00 00:00:00 , Ryan 81482.1.1 ity of 3.104.2.7 [place] .3.931354 [facility] .[facility] [place] 2021-07-22 2021-07-22 Travel 1.2.840.1 1.2.105.338 3247 8425 Univers 00:00:00 00:00:00 66351.1.1 350.1.13.10 ity of 3.104.2.7 4.2.7.3.698 [place]3.813234 084.8 [facility] [facility] .[facility] [place] 2021-07-22 2021-07-22 Letter Alijanipour 1.2.840.4 [id number] Univers 00:00:00 00:00:00 (Out) , Ryan 97786.1.1 ity of 3.104.2.7 [place] .3.455585 [facility] .[facility] [place] 2021-07-22 2021-07-22 Letter Alijanipour 1.2.840.6 [id number] Univers 00:00:00 00:00:00 (Out) , Ryan 12677.1.1 ity of 3.104.2.7 [place] .3.928795 [facility] .[facility] [place] 2021-07-22 2021-07-22 Travel 1.2.840.1 1.2.666.212 4115 8425 Univers 00:00:00 00:00:00 50407.1.1 350.1.13.10 ity of 3.104.2.7 4.2.7.3.698 [place]3.206784 084.8 [facility] .[facility] [place] 2021-07-22 2021-07-22 Abstract Alijanipour 1.2.840.7 [id number] Univers 00:00:00 00:00:00 , Ryan 24449.1.1 ity of 3.104.2.7 [place] .3.453904 [facility] .[facility] [place] 2021-07-22 2021-07-22 Letter Alijanipour 1.2.840.5 [id number] Univers 00:00:00 00:00:00 (Out) , Ryan 43606.1.1 ity of 3.104.2.7 [place] .3.005340 [facility] .[facility] [place] 2021-07-22 2021-07-22 Travel 1.2.840.1 1.2.024.688 0861 8425 Univers 00:00:00 00:00:00 94025.1.1 350.1.13.10 ity of 3.104.2.7 4.2.7.3.698 [place]3.902717 084.8 [facility] .[facility] [place] 2021-07-22 2021-07-22 Abstract Alijanipour 1.2.840.3 [id number] Univers 00:00:00 00:00:00 , Ryan 51569.1.1 ity of 3.104.2.7 [place] .3.635107 [facility] .[facility] [place] 2021-07-22 2021-07-22 Letter Alijanipour 1.2.840.1 [id number] Univers 00:00:00 00:00:00 (Out) , Ryan 36981.1.1 ity of 3.104.2.7 [place] .3.488096 [facility] [place] 2021-07-22 2021-07-22 Travel 1.2.840.1 1.2.334.746 8387 8425 Univers 00:00:00 00:00:00 26695.1.1 350.1.13.10 ity of 3.104.2.7 4.2.7.3.698 [place]3.220281 084.8 [facility] [facility] .8 [place] 2021-07-22 2021-07-22 Abstract Yamilexkadiantonieta 1.2.840.1 [id number] Univers 00:00:00 00:00:00 , Ryan 92080.1.1 ity of 3.104.2.7 [place] .3.139115 [facility] .[facility] [place] 2021-07-21 2021-07-21 Outpatient R RODERICK [facility] [id number] Univers 14:30:00 15:30:35 RODERICK [facility] 2021-07-21 2021-07-21 Outpatient R RODERICK [facility] [id number] Univers 14:30:00 15:30:35 RODERICK [facility] 2021-07-21 2021-07-21 Outpatient R RODERICK [facility] [id number] Univers 14:30:00 14:30:00 [facility] 2021-07-15 2021-07-15 Orders Doctor 1.2.840.0 [id number] Univers 00:00:00 00:00:00 Only Unassigned, 41603.1.1 ity of [place] 3.104.2.7 [place] .3.415527 Medica l .8 [place] 2021-07-15 2021-07-15 Orders Doctor 1.2.840.8 [id number] Univers 00:00:00 00:00:00 Only Unassigned, 97107.1.1 ity of [place] 3.104.2.7 [place] .3.625878 [facility] .8 [place] 2021-07-15 2021-07-15 Orders Doctor 1.2.840.2 [id number] Univers 00:00:00 00:00:00 Only Unassigned, 42587.1.1 ity of [place] 3.104.2.7 [place] .3.837097 [facility] .8 [place] 2021-07-15 2021-07-15 Orders Doctor 1.2.840.0 [id number] Univers 00:00:00 00:00:00 Only Unassigned, 43896.1.1 ity of [place] 3.104.2.7 [place] .3.416585 [facility] [place] 2021-07-09 2021-07-09 Emergency [facility] [id number] [facility] 12:46:00 12:46:00 14 2021-07-08 2021-07-08 Outpatient Escobar GALARZA, [facility] [id number] Univers 13:00:00 13:00:00 HONORIO ity of [facility] [place] [facility] 2021-07-08 2021-07-08 Outpatient Escobar GALARZA, [facility] [id number] Univers 13:00:00 13:00:00 HONORIO ity [facility] 2021-06-30 2021-06-30 Telephone Nazeer, 1.2.840.7 [id number] Univers 00:00:00 00:00:00 Jerry 87784.1.1 ity of 3.104.2.7 [place] .3.219484 Medica l .8 [place] 2021-06-30 2021-06-30 Telephone Nazeer, 1.2.840.0 [id number] Univers 00:00:00 00:00:00 Jerry 00487.1.1 ity of 3.104.2.7 [place] .3.839991 [facility] .8 [place] 2021-06-30 2021-06-30 Telephone Nazeer, 1.2.840.9 [id number] 900 [id number] Univers 00:00:00 00:00:00 Jerry 32532.1.1 ity of 3.104.2.7 [place] .3.088767 [facility] [place] 2021-06-30 2021-06-30 Telephone Nazeer, 1.2.840.9 [id number] 900 [id number] Univers 00:00:00 00:00:00 Jerry 87586.1.1 ity of 3.104.2.7 [place] .3.648866 [facility] .[facility] [place] 2021-06-24 2021-06-24 Imm/Inj Nurse, Pcp Immunization RUST 1. 2.840.114 [id number] Univers 16:30:00 16:40:00 Visit Gideon Montez PRIMARY 350.1.13. 10 ity of CARE 4.2.7.2.686 Michelle VALDES [id number] Ut dical [address] [place] 2021-06-24 2021-06-24 Imm/Inj Gideon Montez 1.2.840.4 [id number] Univers 16:30:00 16:40:00 Visit Nurse, Pcp Immunization 42409.1.1 ity of 3.104.2.7 [place] .3.800752 [facility] .[facility] [place] 2021-06-24 2021-06-24 Imm/Inj Gideon Montez 1.2.840.7 [id number] Univers 16:30:00 16:40:00 Visit Nurse, Pcp Immunization 25042.1.1 ity of 3.104.2.7 [place] .3.604935 [facility] l .8 [place] 2021-06-24 2021-06-24 Imm/Inj Gideon Montez 1.2.840.3 816 [id number] Univers 16:30:00 16:40:00 Visit Nurse, Pcp Immunization 03573.1.1 ity of 3.104.2.7 [place] .3.470871 [facility] .[facility] [place] 2021-06-24 2021-06-24 Imm/Inj Gideon Montez 1.2.840.5 694 [id number] Univers 16:30:00 16:40:00 Visit Nurse, Pcp Immunization 58411.1.1 ity of 3.104.2.7 [place] .3.178297 [facility] l .[facility] [place] 2021-06-24 2021-06-24 Outpatient R CARLOS MANUEL [facility] [id number] Univers 16:30:00 16:30:00 GIDEON erickson of [facility] [place] [facility] 2021-06-24 2021-06-24 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 RUST 1.2.840.114 [id number] [id number] Univers 16:15:00 16:30:00 Visit Bethel Isaacs PRIMARY 350.1.13.10 ity of CARE 4.2.7.2.686 Michelle VALDES [id number] Ut dical [address] [place] 2021-06-24 2021-06-24 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 Bethel Isaacs 1.2.840.0 [id number] Univers 16:15:00 16:30:00 Visit Pcp-Lab 85541.1.1 ity of 3.104.2.7 [place] .3.207359 Medica l .8 [place] 2021-06-24 2021-06-24 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 Bethel Isaacs 1.2.840.3 [id number] Univers 16:15:00 16:30:00 Visit Pcp-Lab 57465.1.1 ity of 3.104.2.7 [place] .3.161013 Medica l .8 [place] 2021-06-24 2021-06-24 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 Bethel Isaacs 1.2.840.2 [id number] [id number] Univers 16:15:00 16:30:00 Visit Pcp-Lab 54828.1.1 ity of 3.104.2.7 [place] .3.141608 Medica l .8 [place] 2021-06-24 2021-06-24 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 Bethel Isaacs 1.2.840.2 [id number] [id number] Univers 16:15:00 16:30:00 Visit Pcp-Lab 20917.1.1 ity of 3.104.2.7 [place] .3.004884 [facility] l .[facility] [place] 2021-06-24 2021-06-24 Outpatient R KOURTNEY [facility] [id number] Univers 16:15:00 16:15:00 BETHEL gabey [facility] 2021-06-24 2021-06-24 Outpatient R KOURTNEY [facility] [id number] Univers 14:40:00 16:08:00 BETHEL dre [facility] 2021-06-24 2021-06-24 Office Bethel Isaacs 1.2.840.9 [id number] Univers 14:40:00 16:08:00 Visit Health, Tg Hormone 58351.1.1 ity of 3.104.2.7 [place] .3.714292 Medica l .8 [place] 2021-06-24 2021-06-24 Outpatient R KOURTNEY [facility] [id number] [id number] Univers 14:40:00 16:08:00 BETHEL erickson [facility] 2021-06-24 2021-06-24 Office Bethel Isaacs 1.2.840.6 [id number] Univers 14:40:00 16:08:00 Visit Health, Tg Hormone 72095.1.1 ity of 3.104.2.7 [place] .3.522044 Medica l .8 [place] 2021-06-24 2021-06-24 Office Bethel Isaacs 1.2.840.3 [id number] Univers 14:40:00 16:08:00 Visit Health, Tg Hormone 78697.1.1 ity of 3.104.2.7 [place] .3.280076 Medica l .8 [place] 2021-06-24 2021-06-24 Office Bethel Isaacs 1.2.840.5 [id number] [id number] Univers 14:40:00 16:08:00 Visit Health, Tg Hormone 43000.1.1 ity of 3.104.2.7 [place] .3.997368 Medica l .8 [place] 2021-06-24 2021-06-24 [facility] [id number] Univers 14:40:00 14:40:00 BETHEL adrian [facility] 2021-06-24 2021-06-24 Travel 1.2.840.1 1.2.585.289 3549 0448 Univers 00:00:00 00:00:00 12645.1.1 350.1.13.10 ity of 3.104.2.7 4.2.7.3.698 [place] .3.603078 084.8 Med[place] l .8 [place] 2021-06-24 2021-06-24 Travel 1.2.840.1 1.2.976.062 7414 0448 Univers 00:00:00 00:00:00 17678.1.1 350.1.13.10 ity of 3.104.2.7 4.2.7.3.698 [place] .3.107612 084.8 Med[place] l .8 [place] 2021-06-24 2021-06-24 Travel 1.2.840.1 1.2.641.704 9192 0448 Univers 00:00:00 00:00:00 54565.1.1 350.1.13.10 ity of 3.104.2.7 4.2.7.3.698 [place] .3.613085 084.8 Medica l .8 [place] 2021-06-24 2021-06-24 Travel 1.2.840.1 1.2.464.346 7899 0448 Univers 00:00:00 00:00:00 07922.1.1 350.1.13.10 ity of 3.104.2.7 4.2.7.3.698 [place] .3.587573 084.8 Medica l .8 [place] 2021-06-17 2021-06-17 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 SelfJames 1.2.840.2 [id number] [facility] 16:00:00 16:15:00 Visit Pcp-Lab 01412.1.1 ity of 3.104.2.7 [place] .3.035129 Medica l .8 [place] 2021-06-17 2021-06-17 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 SelfJames 1.2.840.8 [id number] [facility] 16:00:00 16:15:00 Visit Pcp-Lab 32013.1.1 ity of 3.104.2.7 [place] .3.983659 Medica l .8 [place] 2021-06-17 2021-06-17 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 James Jacobs 1.2.840.8 [id number] [facility] 16:00:00 16:15:00 Visit Pcp-Lab 55300.1.1 ity of 3.104.2.7 [place] .3.096677 Medica l .8 [place] 2021-06-17 2021-06-17 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 James Jacobs 1.2.840.2 [id number] 1042 [id number] Univers 16:00:00 16:15:00 Visit Pcp-Lab 29928.1.1 ity of 3.104.2.7 [place] .3.716850 Medica l .8 [place] 2021-06-17 2021-06-17 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 James Jacobs 1.2.840.4 [id number] [id number] Univers 16:00:00 16:15:00 Visit Pcp-Lab 42056.1.1 ity of 3.104.2.7 [place] .3.592627 Medica l .8 [place] 2021-06-17 2021-06-17 [facility] [id number] Univers 14:00:00 14:00:00 [facility] 2021-06-17 2021-06-17 [facility] [id number] Univers 14:00:00 14:00:00 [facility] 2021-06-17 2021-06-17 Travel 1.2.840.1 1.2.096.461 4215 3149 Univers 00:00:00 00:00:00 38977.1.1 350.1.13.10 ity of 3.104.2.7 4.2.7.3.698 [place] .3.806576 084.8 Med[place] l .8 [place] 2021-06-17 2021-06-17 Travel 1.2.840.1 1.2.695.908 3344 3149 Univers 00:00:00 00:00:00 65097.1.1 350.1.13.10 ity of 3.104.2.7 4.2.7.3.698 [place] .3.942579 084.8 Medica l .8 [place] 2021-06-17 2021-06-17 Travel 1.2.840.1 1.2.481.666 7367 3149 Univers 00:00:00 00:00:00 84073.1.1 350.1.13.10 ity of 3.104.2.7 4.2.7.3.698 [place] .3.087266 084.8 [facility] .8 [place] 2021-06-17 2021-06-17 Travel 1.2.840.1 1.2.620.499 0634 3149 [facility] 00:00:00 00:00:00 63573.1.1 350.1.13.10 ity of 3.104.2.7 4.2.7.3.698 [place] .3.309638 084.8 Medica l .8 [place] 2021-06-17 2021-06-17 Travel 1.2.840.1 1.2.313.565 1175 3149 [facility] 00:00:00 00:00:00 88963.1.1 350.1.13.10 ity of 3.104.2.7 4.2.7.3.698 [place] .3.834849 084.8 Medica l .8 [place] 2021-06-14 2021-06-14 Outpatient R REYNALDO, [facility] [id number] [facility] 11:00:00 12:13:42 JAMES bernaly o f [facility] 2021-06-14 2021-06-14 Travel 1.2.840.1 1.2.139.376 6299 7514 [facility] 00:00:00 00:00:00 86149.1.1 350.1.13.10 ity of 3.104.2.7 4.2.7.3.698 [place] .3.133337 084.8 Medica l .8 [place] 2021-06-14 2021-06-14 Travel 1.2.840.1 1.2.776.032 5443 7514 [facility] 00:00:00 00:00:00 59294.1.1 350.1.13.10 ity of 3.104.2.7 4.2.7.3.698 [place] .3.684520 084.8 Medica l .8 [facility] 2021-06-14 2021-06-14 Travel 1.2.840.1 1.2.123.489 4900 7514 [facility] 00:00:00 00:00:00 64074.1.1 350.1.13.10 ity of 3.104.2.7 4.2.7.3.698 [place] .3.291216 084.8 Medica l .8 [place] 2021-06-14 2021-06-14 Travel 1.2.840.1 1.2.069.536 7098 7514 [facility] 00:00:00 00:00:00 43189.1.1 350.1.13.10 ity of 3.104.2.7 4.2.7.3.698 [place] .3.998870 084.8 Medica l .8 [place] 2021-06-10 2021-06-10 Patient Burton, 1.2.840.6 [id number] 075 [facility] 00:00:00 00:00:00 Outreach Britt J 74468.1.1 ity of 3.104.2.7 [place] .3.355308 Medica l .8 [place] 2021-06-10 2021-06-10 Patient Burton, 1.2.840.4 [id number] 075 [facility] 00:00:00 00:00:00 Outreach Britt J 36207.1.1 ity of 3.104.2.7 [place] .3.044338 Medica l .8 [place] 2021-06-10 2021-06-10 Patient Burton, 1.2.840.9 [id number] 075 [facility] 00:00:00 00:00:00 Outreach Britt J 02753.1.1 ity of 3.104.2.7 [place] .3.378662 Medica l .8 [place] 2021-06-10 2021-06-10 Patient Burton, 1.2.840.2 [id number] 075 [facility] 00:00:00 00:00:00 Outreach Britt J 43308.1.1 ity of 3.104.2.7 [place] .3.348428 Medica l .8 [place] 2021-06-03 2021-06-03 Outpatient Escobar GALARZA [facility] [id number] [facility] 14:00:00 14:22:42 HONORIO ity of [facility] [place] [facility] 2021-06-03 2021-06-03 Travel 1.2.840.1 1.2.504.207 6623 4897 [facility] 00:00:00 00:00:00 71685.1.1 350.1.13.10 ity of 3.104.2.7 4.2.7.3.698 [place] .3.261829 084.8 Medica l .8 [place] 2021-06-03 2021-06-03 Travel 1.2.840.1 1.2.774.658 0643 48 [facility] 00:00:00 00:00:00 35240.1.1 350.1.13.10 ity of 3.104.2.7 4.2.7.3.698 [place] .3.424643 084.8 Medica l .8 [place] 2021-06-03 2021-06-03 Travel 1.2.840.1 1.2.735.[address] [place] [address] 00:00:00 00:00:00 85673.1.1 350.1.13.10 ity of 3.104.2.7 4.2.7.3.698 [place] .3.141719 084.8 Medica l .8 [place] 2021-06-03 2021-06-03 Travel 1.2.840.1 1.2.566.611 3588 4897 [facility] 00:00:00 00:00:00 22474.1.1 350.1.13.10 ity of 3.104.2.7 4.2.7.3.698 [place] .3.893720 084.8 Medica l .8 [place] 2021-05-26 2021-05-26 [facility], 1.2.840.0 [id number] 9138 [facility] 09:40:00 23:59:00 Tej De La Cruz 04185.1.1 ity of 3.104.2.7 [place] .3.383320 Medica l .8 [place] 2021-05-26 2021-05-26 [facility], 1.2.840.6 [id number] 9138 [facility] 09:40:00 23:59:00 Encounter Burke De La Cruz 53081.1.1 ity of 3.104.2.7 [place] .3.675442 Medica l .8 [facility] 2021-05-26 2021-05-26 [facility], 1.2.840.5 [id number] 9138 [facility] 09:40:00 23:59:00 Encounter Burke De La Cruz 96175.1.1 ity of 3.104.2.7 [place] .3.653554 Medica l .8 [place] 2021-05-26 2021-05-26 [id number] [facility] 00:00:00 00:00:00 BURKE ity of [facility] 2021-05-25 2021-05-25 Emergency [facility] [id number] [facility] 23:19:00 23:19:00 2021-05-24 2021-05-[address] [facility] [id number] Univers 11:00:00 11:31:18 JAMES erickson o f [facility] 2021-05-24 2021-05-24 Travel 1.2.840.1 1.2.082.293 [id number] Univers 00:00:00 00:00:00 59362.1.1 350.1.13.10 ity of 3.104.2.7 [place] .3.1765[place] 084.8 [place] .8 [place] 2021-05-24 2021-05-24 Travel 1.2.840.1 1.2.780.999 2503 1167 Univers 00:00:00 00:00:00 79442.1.1 350.1.13.10 ity of 3.104.2.7 [place].698 [place]3.304564 084.8 [facility] .8 [place] 2021-05-24 2021-05-24 Travel 1.2.840.1 1.2.200.367 [id number] 1167 Univers 00:00:00 00:00:00 07048.1.1 350.1.13.10 ity of 3.104.2.7 [place].3.698 [place] .3.448747 084.8 [place] .8 [place] 2021-05-10 2021-05-10 Outpatient R SELF, [facility] [id number] Univers 08:45:00 08:45:00 JAMES erickson o f [facility] 2021-04-29 2021-04-29 Outpatient R GEOVANNI, [facility] [id number] Univers 13:00:00 13:33:16 HONORIO ity [facility] 2021-04-29 2021-04-29 Outpatient R GEOVANNI, [facility] [id number] Univers 13:00:00 13:00:00 HONORIO ity [facility] 2021-04-29 2021-04-29 Travel 1.2.840.1 1.2.235.293 [id number] [id number] Univers 00:00:00 00:00:00 21252.1.1 350.1.13.10 ity of 3.104.2.7 [place].698 [place]3.6313[place] 084.8 [place] .8 [place] 2021-04-29 2021-04-29 Travel 1.2.840.1 1.2.232.256 [id number] [id number] Univers 00:00:00 00:00:00 82115.1.1 350.1.13.10 ity of 3.104.2.7 [place].698 [place]3.620994 084.8 [place] .8 [place] 2021-03-18 2021-03-18 Outpatient R GEOVANNI, [facility] [id number] Univers 15:00:00 15:00:00 HONORIO ity [facility] 2021-03-18 2021-03-18 Travel 1.2.840.1 1.2.718.205 [id number] [id number] Univers 00:00:00 00:00:00 66543.1.1 350.1.13.10 ity of 3.104.2.7 [place].3.698 [place]3.118159 084.8 [place] l .8 [place] 2021-03-15 2021-03-15 Outpatient R SELF, [facility] [id number] Univers 10:15:00 10:15:00 JAMES erickson o monica [facility] 2021-02-25 2021-02-25 [facility] [id number] Univers 09:00:00 09:00:00 HONORIO erickson [facility] 2021-02-25 2021-02-25 Travel 1.2.840.1 1.2.510.343 [id number] [id number] Univers 00:00:00 00:00:00 91114.1.1 350.1.13.10 ity of 3.104.2.7 [place]3.163713 084.8 [place] l .8 [place] 2021-02-15 2021-02-15 [facility] [id number] Univers 11:00:00 11:00:00 JAMES anderson [facility] 2021-02-15 2021-02-15 Travel 1.2.840.1 1.2.254.737 [id number] [id number] Univers 00:00:00 00:00:00 48439.1.1 350.1.13.10 ity of 3.104.2.7 [place]7.3.[place]3.271612 084.8 [place] l .8 [place] 2021-02-11 2021-02-11 [facility] [id number] Univers 11:00:00 11:00:00 HONORIO erickson [facility] 2021-02-11 2021-02-11 Travel 1.2.840.1 1.2.709.337 [id number] [id number] Univers 00:00:00 00:00:00 93855.1.1 350.1.13.10 ity of 3.104.2.7 [place]7.3.698 [place] .3.429210 084.8 [place] l .8 [place] 2021-01-28 2021-01-28 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 Paolo Rivera 1.2.840.4 [id number] Univers 13:53:29 14:08:29 Visit Pcp-Lab 61817.1.1 ity of 3.104.2.7 [place] .3.818907 Medica l .8 [place] 2021-01-28 2021-01-28 Outpatient R GALARZA, [facility] [id number] Univers 13:00:00 13:00:00 HONORIO ity of [facility] 2021-01-28 2021-01-28 Travel 1.2.840.1 1.2.281.169 [id number] Univers 00:00:00 00:00:00 64232.1.1 350.1.13.10 ity of 3.104.2.7 [place]7.3.[place] .3.679185 084.8 [place]ica l .8 [place] 2021-01-25 2021-01-25 Outpatient R REYNALDO, [facility] [id number] Univers 09:30:00 09:30:00 JAMES erickson o [facility] 2021-01-25 2021-01-25 Travel 1.2.840.1 1.2.549.631 [id number] Univers 00:00:00 00:00:00 19141.1.1 350.1.13.10 ity of 3.104.2.7 [place]7.3.698 [place] .3.359163 084.8 Medica l .8 [place] 2021-01-13 2021-01-13 Outpatient R REYNALDO, [facility] [id number] Univers 16:00:00 16:00:00 JAMES anderson [facility] 2021-01-13 2021-01-13 Travel 1.2.840.1 1.2.020.165 [id number] [id number] Univers 00:00:00 00:00:00 58333.1.1 350.1.13.10 ity of 3.104.2.7 4.[place]7.3.698 [place] .3.387958 084.8 Medica l .8 [place] 2020-12-31 2020-12-31 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 Tim Holguin 1.2.840.7 [id number] Univers 16:38:39 16:54:09 Visit Pcp-Lab 47139.1.1 ity of 3.104.2.7 [place] .3.224877 Medica l .8 [place] 2020-12-31 2020-12-31 Outpatient Escobar GEOVANNI [facility] [id number] Univers 16:00:00 16:00:00 HONORIO erickson [facility] 2020-12-31 2020-12-31 Travel 1.2.840.1 1.2.291.498 [id number] [id number] Univers 00:00:00 00:00:00 50942.1.1 350.1.13.10 ity of 3.104.2.7 [place].7.3.698 [place] .3.657513 084.8 Medica l .8 [place] 2020-12-28 2020-12-28 Orders Doctor 1.2.840.9 [id number] Univers 00:00:00 00:00:00 Only Unassigned, 15731.1.1 ity of [place] 3.104.2.7 [place] .3.283547 Medica l .8 [place] 2020-12-24 2020-12-24 Outpatient Escobar HOLGUIN [facility] [id number] Univers 11:00:00 11:00:00 TIM gabe y of [facility] 2020-12-24 2020-12-24 Travel 1.2.840.1 1.2.349.269 [id number] [id number] Univers 00:00:00 00:00:00 86886.1.1 350.1.13.10 ity of 3.104.2.7 [place]7.3.[place] .3.501400 084.8 Medica l .8 [place] 2020-12-17 2020-12-17 Outpatient Escobar GALARZA [facility] [id number] Univers 11:00:00 11:00:00 HONORIO erickson [facility] 2020-11-26 2020-11-26 Outpatient Escobar GALARZA [facility] [id number] Univers 16:00:00 16:00:00 HONORIO erickson [facility] 2020-11-26 2020-11-26 Travel 1.2.840.1 1.2.691.407 [id number] Univers 00:00:00 00:00:00 92248.1.1 350.1.13.10 ity of 3.104.2.7 4.[place].7.3.698 [place] .3.102210 084.8 Medica l .8 [place] 2020-11-26 2020-11-26 Travel 1.2.840.1 1.2.145.313 [id number] 0854 Univers 00:00:00 00:00:00 10328.1.1 350.1.13.10 ity of 3.104.2.7 [place]7.3.698 [place] .3.360119 084.8 Medica l .8 [place] 2020-11-21 2020-11-21 Imm/Inj Gideon Montez 1.2.840.6 [id number] Univers 10:04:35 10:09:35 Visit Immunization, [facility] [employer] 82589.1.1 ity of 3.104.2.7 [place] .3.809209 Medica l .8 [place] 2020-11-21 2020-11-21 Outpatient R CARLOS MANUEL [facility] [id number] Univers 10:05:00 10:05:00 GIDEON erickson [facility] 2020-11-17 2020-11-17 Outpatient R CHELSY ROMO [facility] [id number] Univers 15:45:00 15:45:00 ity of [facility] 2020-11-17 2020-11-17 Travel 1.2.840.1 1.2.937.097 [id number] Univers 00:00:00 00:00:00 99394.1.1 350.1.13.10 ity of 3.104.2.7 4.[place].7.3.698 [place] .3.784471 084.8 Medica l .8 [place] 2020-11-16 2020-11-16 Orders Doctor 1.2.840.1 [id number] Univers 00:00:00 00:00:00 Only Unassigned, 76295.1.1 ity of [place] 3.104.2.7 [place] .3.837118 Medica l .8 [place] 2020-11-12 2020-11-12 Outpatient R GEOVANNI, [facility] [id number] Univers 08:00:00 08:00:00 HONORIO ity of [facility] 2020-11-12 2020-11-12 Travel 1.2.840.1 1.2.929.417 [id number] Univers 00:00:00 00:00:00 89566.1.1 350.1.13.10 ity of 3.104.2.7 4.[place].7.3.698 [place] .3.622979 084.8 Medica l .8 [place] 2020-10-29 2020-10-29 Outpatient R EZIO, [facility] [id number] Univers 09:30:00 09:30:00 TIM it y [facility] 2020-10-24 2020-10-24 Imm/Inj Gio Martinez 1.2.840.1 [id number] Univers 09:54:36 10:09:56 Visit Immunization, [facility] [employer] 28256.1.1 ity of 3.104.2.7 [place] .3.780882 Medica l .8 [place] 2020-10-24 2020-10-24 Outpatient Escobar MARTINEZ, [facility] [id number] Univers 10:00:00 10:00:00 GIO ity [facility] 2020-10-24 2020-10-24 Travel 1.2.840.1 1.2.090.946 [id number] Univers 00:00:00 00:00:00 28701.1.1 350.1.13.10 ity of 3.104.2.7 4.[place].7.3.698 [place] .3.035005 084.8 Medica l .8 [place] 2020-09-25 2020-09-26 Emergency E BRINDA, [facility] [id number] [address] [place] [address] 23:49:00 10:04:00 ALAINA Medica [facility] 2020-09-17 2020-09-17 Telephone Simon 1.2.840.9 [id number] Univers 00:00:00 00:00:00 Nilton A 95302.1.1 i ty of 3.104.2.7 [place] .3.606874 Medica l .8 [place] 2020-08-18 2020-08-18 Outpatient R CHELSY ROMO [facility] [id number] Univers 15:00:00 15:00:00 ity of [facility] 2020-07-08 2020-07-08 Office Simon, 1.2.840.5 [id number] Univers 12:55:33 15:36:41 Visit Nilton A 52406.1.1 i ty of 3.104.2.7 [place] .3.350419 Medica l .[address] [place] [address] 2020-07-08 2020-07-08 Outpatient R NILTON MONTES [facility] [id number] Univers 13:30:00 13:30:00 NILTON MONTES ity [facility] 2020-07-08 2020-07-08 Orders Doctor 1.2.840.1 [id number] Univers 00:00:00 00:00:00 Only Unassigned, 76367.1.1 ity of [place] 3.104.2.7 [place] .3.368613 Medica l .[address] [place] [address] 2020-07-08 2020-07-08 Letter Simon, 1.2.840.9 [id number] Univers 00:00:00 00:00:00 (Out) Nilton A 35063.1.1 i ty of 3.104.2.7 [place] .3.228600 Medica l .8 [place] 2020-05-21 2020-05-21 Outpatient R NICOLE [facility] [id number] Univers 10:15:00 10:15:00 DENA ity [facility] 2020-05-21 2020-05-21 Orders Doctor 1.2.840.9 [id number] Univers 00:00:00 00:00:00 Only Unassigned, 97533.1.1 ity of [place] 3.104.2.7 [place] .3.635600 Medica l .8 [place] 2020-04-24 2020-04-24 Outpatient R FISHASH [facility] [id number] Univers 16:00:00 16:00:00 ity of [facility] 2020-04-22 2020-04-22 Telephone Ash Ramirez 1.2.840.7 [id number] Univers 00:00:00 00:00:00 20029.1.1 ity of 3.104.2.7 [place] .3.335922 Medica l .8 [place] 2020-04-21 2020-04-21 Case Ash Ramirez 1.2.840.8 [id number] Univers 00:00:00 00:00:00 Management 53406.1.1 i ty of 3.104.2.7 [place] .3.441425 Medica l .8 [place] 2020-04-20 2020-04-20 Office Ash Ramirez 1.2.840.9 [id number] Univers 15:09:50 16:30:58 Visit 08764.1.1 ity of 3.104.2.7 [place] .3.917388 Medica l .8 [place] 2020-04-20 2020-04-20 Outpatient R ASH RAMIREZ [facility] [id number] Univers 15:30:00 15:30:00 ity of [facility] 2020-04-20 2020-04-20 Travel 1.2.840.1 1.2.941.413 [id number] [id number] Univers 00:00:00 00:00:00 65234.1.1 350.1.13.10 ity of 3.104.2.7 4.2.7.3.698 [place] .3.262789 084.8 Medica l .8 [place] 2020-04-16 2020-04-16 Emergency [place], K 1.2.840.7 [id number] Univers 11:02:00 13:56:00 Bree 83240.1.1 ity of 3.104.2.7 [place] .3.538395 Medica l .8 [place] 2020-04-16 2020-04-16 Travel 1.2.840.1 1.2.420.883 3060 [id number] Univers 00:00:00 00:00:00 01423.1.1 350.1.13.10 ity of 3.104.2.7 4.2.7.3.698 [place] .3.895736 084.8 Medica l .8 [place] 2020-04-07 2020-04-07 Outpatient R CHELSY ROMO [facility] [id number] Univers 13:30:00 13:30:00 ity of [facility] 2020-04-07 2020-04-07 Travel 1.2.840.1 1.2.084.145 [id number] Univers 00:00:00 00:00:00 97173.1.1 350.1.13.10 ity of 3.104.2.7 4.2.7.3.698 [place] .3.066374 084.8 Medica l .8 [place] 2020-01-30 2020-01-30 Outpatient R DEFILIAURELIANO, [facility] [id number] Univers 15:45:00 15:45:00 TRUNG ity of [facility] 2020-01-30 2020-01-30 Travel 1.2.840.1 1.2.433.583 [id number] Univers 00:00:00 00:00:00 22873.1.1 350.1.13.10 ity of 3.104.2.7 4.2.7.3.698 [place] .3.717845 084.8 Medica l .8 [place] 2020-01-01 2020-01-01 Orders Doctor 1.2.840.0 [id number] Univers 00:00:00 00:00:00 Only Unassigned, 63618.1.1 ity of [place] 3.104.2.7 [place] .3.673133 Medica l .8 [place] 2019-10-22 2019-10-22 Outpatient R CHELSY ROMO [facility] [id number] Univers 15:45:00 15:45:00 ity of [facility] 2019-09-12 2019-09-12 Urgent Unknown, Attending 1.2.840.1 [id number] Univers 17:51:35 19:25:20 Ruchi Camargo 50579.1.1 ity of 3.104.2.7 [place] .3.657660 Medica l .8 [place] 2019-09-12 2019-09-12 Outpatient R UNKNOWN, [facility] [id number] Univers 18:00:00 18:00:00 ATTENDING ity of [facility] 2019-07-04 2019-07-04 Orders Doctor 1.2.840.3 [id number] Univers 00:00:00 00:00:00 Only Unassigned, 74691.1.1 ity of [place] 3.104.2.7 [place] .3.441897 Medica l .8 [place] 2019-04-02 2019-04-02 Orders Doctor 1.2.840.5 [id number] Univers 00:00:00 00:00:00 Only Unassigned, 89487.1.1 ity of [place] 3.104.2.7 [place] .3.573274 Medica l .8 [place] 2018-10-31 2018-10-31 Nurse Nilton Montes 1.2.840.1 [id number] [facility] 14:59:26 16:42:50 Visit Nurse, Han Rai 24266.1.1 ity of 3.104.2.7 [place] .3.054234 Medica l .8 [place] Results Test Description Test Time Test Comments [...] 3576) 07/02/2023 Lab Interpretation (test code = 60419-7) [id number]00 Test Item Value Reference Range Interpretation Comments POCT PREG (test code = 1605) Negative On board controls acceptable with Present C Line (test code = 3574) POCT PREG LOT # (test code = HCG 20110903) POCT PREG TEST DATE (test 07/02/2023 code = 3576) Lab Interpretation (test code = Normal 68702-6) [facility] [id number] 01:46:00 Test Item Value Reference Range Interpretation Comments POCT PREG (test code = 1605) Negative On board controls acceptable with Present C Line (test code = 3574) POCT PREG LOT # (test code = HCG 20110903) POCT PREG TEST DATE (test 07/02/2023 code = 3576) Lab Interpretation (test code = Normal 34509-9) [facility] [id number] 01:46:00 Test Item Value Reference Range Interpretation Comments POCT PREG (test code = 1605) Negative On board controls acceptable with Present C Line (test code = 3574) POCT PREG LOT # (test code = HCG 20110903) POCT PREG TEST DATE (test 07/02/2023 code = 3576) Lab Interpretation (test code = Normal 66279-2) [facility] [id number] 01:46:00 Test Item Value Reference Range Interpretation Comments POCT PREG (test code = 1605) Negative On board controls acceptable with Present C Line (test code = 3574) POCT PREG LOT # (test code = HCG 20110903) POCT PREG TEST DATE (test 07/02/2023 code = 3576) Lab Interpretation (test code = Normal 65800-6) [facility] [id number] 01:46:00 Test Item Value Reference Range Interpretation Comments POCT PREG (test code = 1605) Negative On board controls acceptable with Present C Line (test code = 3574) POCT PREG LOT # (test code = HCG 20110903) POCT PREG TEST DATE (test 07/02/2023 code = 3576) Lab Interpretation (test code = Normal 81917-3) [facility] [id number] 01:46:00 Test Item Value Reference Range Interpretation Comments POCT PREG (test code = 1605) Negative On board controls acceptable with Present C Line (test code = 3574) POCT PREG LOT # (test code = HCG 20110903) POCT PREG TEST DATE (test 07/02/2023 code = 3576) Lab Interpretation (test code = Normal 45507-1) [id number] 01:46:00 Test Item Value Reference Range Interpretation Comments POCT PREG (test code = 1605) Negative On board controls acceptable with Present C Line (test code = 3574) POCT PREG LOT # (test code = HCG 20110903) POCT PREG TEST DATE (test 07/02/2023 code = 3576) Lab Interpretation (test code = Normal 27809-1) [id number] 01:46:00 Test Item Value Reference Range Interpretation Comments POCT PREG (test code = 1605) Negative On board controls acceptable with Present C Line (test code = 3574) POCT PREG LOT # (test code = HCG 20110903) POCT PREG TEST DATE (test 07/02/2023 code = 3576) Lab Interpretation (test code = Normal 11172-7) [facility] [id number] 01:46:00 Test Item Value Reference Range Interpretation Comments POCT PREG (test code = 1605) Negative On board controls acceptable with Present C Line (test code = 3574) POCT PREG LOT # (test code = HCG 20110903) POCT PREG TEST DATE (test 07/02/2023 code = 3576) Lab Interpretation (test code = Normal 36144-6) [facility] [id number] 01:46:00 Test Item Value Reference Range Interpretation Comments POCT PREG (test code = 1605) Negative On board controls acceptable with Present C Line (test code = 3574) POCT PREG LOT # (test code = HCG 20110903) POCT PREG TEST DATE (test 07/02/2023 code = 3576) Lab Interpretation (test code = Normal 73865-4) [facility] [id number] 01:46:00 Test Item Value Reference Range Interpretation Comments POCT PREG (test code = 1605) Negative On board controls acceptable with Present C Line (test code = 3574) POCT PREG LOT # (test code = HCG 20110903) POCT PREG TEST DATE (test 07/02/2023 code = 3576) Lab Interpretation (test code = Normal 75275-7) [facility] [id number] 01:46:00 Test Item Value Reference Range Interpretation Comments POCT PREG (test code = 1605) Negative On board controls acceptable with Present C Line (test code = 3574) POCT PREG LOT # (test code = HCG 20110903) POCT PREG TEST DATE (test 07/02/2023 code = 3576) Lab Interpretation (test code = Normal 98425-3) [facility] [id number] 01:46:00 Test Item Value Reference Range Interpretation Comments POCT PREG (test code = 1605) Negative On board controls acceptable with Present C Line (test code = 3574) POCT PREG LOT # (test code = HCG 20110903) POCT PREG TEST DATE (test 07/02/2023 code = 3576) Lab Interpretation (test code = Normal 60074-4) [facility] [id number] 01:46:00 Test Item Value Reference Range Interpretation Comments POCT PREG (test code = 1605) Negative On board controls acceptable with Present C Line (test code = 3574) POCT PREG LOT # (test code = HCG 20110903) POCT PREG TEST DATE (test 07/02/2023 code = 3576) Lab Interpretation (test code = Normal 86329-2) [facility] [id number] 01:46:00 Test Item Value Reference Range Interpretation Comments POCT PREG (test code = 1605) Negative On board controls acceptable with Present C Line (test code = 3574) POCT PREG LOT # (test code = HCG 20110903) POCT PREG TEST DATE (test 07/02/2023 code = 3576) Lab Interpretation (test code = Normal 15374-3) [facility] [id number] 01:46:00 Test Item Value Reference Range Interpretation Comments POCT PREG (test code = 1605) Negative On board controls acceptable with Present C Line (test code = 3574) POCT PREG LOT # (test code = HCG 20110903) POCT PREG TEST DATE (test 07/02/2023 code = 3576) Lab Interpretation (test code = Normal 53003-9) [facility] [id number] 01:46:00 Test Item Value Reference Range Interpretation Comments POCT PREG (test code = 1605) Negative On board controls acceptable with Present C Line (test code = 3574) POCT PREG LOT # (test code = HCG 2634280 357) POCT PREG TEST DATE (test 07/02/2023 code = 3576) Lab Interpretation (test code = Normal 19308-1) [facility] [id number] 01:46:00 Test Item Value Reference Range Interpretation Comments POCT PREG (test code = 1605) Negative On board controls acceptable with Present C Line (test code = 3574) POCT PREG LOT # (test code = HCG 20110903 357) POCT PREG TEST DATE (test 07/02/2023 code = 3576) Lab Interpretation (test code = Normal 62600-1) [facility] [id number] 01:46:00 Test Item Value Reference Range Interpretation Comments POCT PREG (test code = 1605) Negative On board controls acceptable with Present C Line (test code = 3574) POCT PREG LOT # (test code = HCG 20110903) POCT PREG TEST DATE (test 07/02/2023 code = 3576) Lab Interpretation (test code = Normal 61704-7) [facility] [id number] 01:46:00 Test Item Value Reference Range Interpretation Comments POCT PREG (test code = 1605) Negative On board controls acceptable with Present C Line (test code = 3574) POCT PREG LOT # (test code = HCG 20110903 357) POCT PREG TEST DATE (test 07/02/2023 code = 3576) Lab Interpretation (test code = Normal 77278-6) [facility] METABOLIC PANEL (NA, K, CL, CO2, GLUCOSE, BUN, CREATININE, CA)2022-04-05 11:08:28 Test Item Value Reference Range Interpretation Comments NA (test code = 137 mmol/L 135-145 5737880100) K (test code = 3.8 mmol/L 3.5-5 1941718980) CL (test code = 104 mmol/L 98-108 2167064212) CO2 TOTAL (test code 27 mmol/L 23-31 = 1005526417) AGAP (test code = 2-16 6535646283) BUN (test code = 13 mg/dL 7-23 5234665726) GLUCOSE (test code = 106 mg/dL 70-110 6910861420) CREATININE (test code 0.58 mg/dL 0.5-1.04 = 1688963543) CALCIUM (test code = 8.6 mg/dL 8.6-10.6 3858408926) eGFR (test code = mL/min/1.73m2 4154354243) MEDHAT (test code = MEDHAT) Association of [...] or urine or abnormalities in imaging tests). [facility] METABOLIC PANEL (NA, K, CL, CO2, GLUCOSE, BUN, CREATININE, CA)2022-04-05 11:08:28 Test Item Value Reference Range Interpretation Comments NA (test code = 137 mmol/L 135-145 [id number]) K (test code = 3.8 mmol/L 3.5-5 1379752615) CL (test code = 104 mmol/L 98-108 2685196372) CO2 TOTAL (test code 27 mmol/L 23-31 = 0637105440) AGAP (test code = 2-16 4415825676) BUN (test code = 13 mg/dL 7-23 2917040042) GLUCOSE (test code = 106 mg/dL 70-110 2323617840) CREATININE (test code 0.58 mg/dL 0.5-1.04 = 6664567986) CALCIUM (test code = 8.6 mg/dL 8.6-10.6 1179198090) eGFR (test code = mL/min/1.73m2 7951735109) MEDHAT (test code = MEDHAT) Association of [...] or urine or abnormalities in imaging tests). [facility] (NA, K, CL, CO2, GLUCOSE, BUN, CREATININE, CA)2022-04-05 11:08:28 Test Item Value Reference Range Interpretation Comments NA (test code = 137 mmol/L 135-145 [id number]) K (test code = 3.8 mmol/L 3.5-5 3594361698) CL (test code = 104 mmol/L 98-108 0409860316) CO2 TOTAL (test code 27 mmol/L 23-31 = 8194332057) AGAP (test code = 2-16 4854296175) BUN (test code = 13 mg/dL 7-23 0543940398) GLUCOSE (test code = 106 mg/dL 70-110 3063357057) CREATININE (test code 0.58 mg/dL 0.5-1.04 = 7999519018) CALCIUM (test code = 8.6 mg/dL 8.6-10.6 3108442054) eGFR (test code = mL/min/1.73m2 8547596977) MEDHAT (test code = MEDHAT) Association of [...] or urine or abnormalities in imaging tests). [facility] METABOLIC PANEL (NA, K, CL, CO2, GLUCOSE, BUN, CREATININE, CA)2022-04-05 11:08:28 Test Item Value Reference Range Interpretation Comments NA (test code = 137 mmol/L 135-145 1452388701) K (test code = 3.8 mmol/L 3.5-5 3339033841) CL (test code = 104 mmol/L 98-108 6394609744) CO2 TOTAL (test code 27 mmol/L 23-31 = 8446915989) AGAP (test code = 2-16 2682227992) BUN (test code = 13 mg/dL 7-23 6665538117) GLUCOSE (test code = 106 mg/dL 70-110 6284548394) CREATININE (test code 0.58 mg/dL 0.5-1.04 = 7135502557) CALCIUM (test code = 8.6 mg/dL 8.6-10.6 3227712702) eGFR (test code = mL/min/1.73m2 7690654338) MEDHAT (test code = MEDHAT) Association of [...] or urine or abnormalities in imaging tests). [facility] METABOLIC PANEL (NA, K, CL, CO2, GLUCOSE, BUN, CREATININE, CA)2022-04-05 11:08:28 Test Item Value Reference Range Interpretation Comments NA (test code = 137 mmol/L 135-145 2369190074) K (test code = 3.8 mmol/L 3.5-5 9961990123) CL (test code = 104 mmol/L 98-108 5315169711) CO2 TOTAL (test code 27 mmol/L 23-31 = 0823173424) AGAP (test code = 2-16 7975075151) BUN (test code = 13 mg/dL 7-23 6722552533) GLUCOSE (test code = 106 mg/dL 70-110 7398578574) CREATININE (test code 0.58 mg/dL 0.5-1.04 = 0705066270) CALCIUM (test code = 8.6 mg/dL 8.6-10.6 5294036592) eGFR (test code = mL/min/1.73m2 7082221012) MEDHAT (test code = MEDHAT) Association of [...] or urine or abnormalities in imaging tests). [facility] METABOLIC PANEL (NA, K, CL, CO2, GLUCOSE, BUN, CREATININE, CA)2022-04-05 11:08:28 Test Item Value Reference Range Interpretation Comments NA (test code = 137 mmol/L 135-145 5702614398) K (test code = 3.8 mmol/L 3.5-5 7013579051) CL (test code = 104 mmol/L 98-108 9514064742) CO2 TOTAL (test code 27 mmol/L 23-31 = 4766918717) AGAP (test code = 2-16 9789222487) BUN (test code = 13 mg/dL 7-23 0187731518) GLUCOSE (test code = 106 mg/dL 70-110 9698116027) CREATININE (test code 0.58 mg/dL 0.5-1.04 = 7404998492) CALCIUM (test code = 8.6 mg/dL 8.6-10.6 1040957907) eGFR (test code = mL/min/1.73m2 6666408999) MEDHAT (test code = MEDHAT) Association of [...] or urine or abnormalities in imaging tests). [facility] METABOLIC PANEL (NA, K, CL, CO2, GLUCOSE, BUN, CREATININE, CA)2022-04-05 11:08:28 Test Item Value Reference Range Interpretation Comments NA (test code = 137 mmol/L 135-145 3462523047) K (test code = 3.8 mmol/L 3.5-5 8843361281) CL (test code = 104 mmol/L 98-108 3221778837) CO2 TOTAL (test code 27 mmol/L 23-31 = 5239809178) AGAP (test code = 2-16 5920774645) BUN (test code = 13 mg/dL 7-23 6842998684) GLUCOSE (test code = 106 mg/dL 70-110 3744365786) CREATININE (test code 0.58 mg/dL 0.5-1.04 = 6646081106) CALCIUM (test code = 8.6 mg/dL 8.6-10.6 3972249326) eGFR (test code = mL/min/1.73m2 4715759831) MEDHAT (test code = MEDHAT) Association of [...] or urine or abnormalities in imaging tests). [facility] (NA, K, CL, CO2, GLUCOSE, BUN, CREATININE, CA)2022-04-05 11:08:28 Test Item Value Reference Range Interpretation Comments NA (test code = 137 mmol/L 135-145 4271520521) K (test code = 3.8 mmol/L 3.5-5 5577392312) CL (test code = 104 mmol/L 98-108 5242677531) CO2 TOTAL (test code 27 mmol/L 23-31 = 1787080122) AGAP (test code = 2-16 5621821069) BUN (test code = 13 mg/dL 7-23 7856679344) GLUCOSE (test code = 106 mg/dL 70-110 5723973112) CREATININE (test code 0.58 mg/dL 0.5-1.04 = 6896280320) CALCIUM (test code = 8.6 mg/dL 8.6-10.6 3477585917) eGFR (test code = mL/min/1.73m2 9520412486) MEDHAT (test code = MEDHAT) Association of [...] or urine or abnormalities in imaging tests). [facility] (NA, K, CL, CO2, GLUCOSE, BUN, CREATININE, CA)2022-04-05 11:08:28 Test Item Value Reference Range Interpretation Comments NA (test code = 137 mmol/L 135-145 2201427769) K (test code = 3.8 mmol/L 3.5-5 8833326828) CL (test code = 104 mmol/L 98-108 7969012842) CO2 TOTAL (test code 27 mmol/L 23-31 = 3964948596) AGAP (test code = 2-16 5041388527) BUN (test code = 13 mg/dL 7-23 7655049037) GLUCOSE (test code = 106 mg/dL 70-110 0465137518) CREATININE (test code 0.58 mg/dL 0.5-1.04 = 3643908501) CALCIUM (test code = 8.6 mg/dL 8.6-10.6 6424806612) eGFR (test code = mL/min/1.73m2 0145634720) MEDHAT (test code = MEDHAT) Association of [...] or urine or abnormalities in imaging tests). [facility] (NA, K, CL, CO2, GLUCOSE, BUN, CREATININE, CA)2022-04-05 11:08:28 Test Item Value Reference Range Interpretation Comments NA (test code = 137 mmol/L 135-145 2204745795) K (test code = 3.8 mmol/L 3.5-5 0721925310) CL (test code = 104 mmol/L 98-108 9662391839) CO2 TOTAL (test code 27 mmol/L 23-31 = 1223548434) AGAP (test code = 2-16 9729582105) BUN (test code = 13 mg/dL 7-23 0790955178) GLUCOSE (test code = 106 mg/dL 70-110 2219171544) CREATININE (test code 0.58 mg/dL 0.5-1.04 = 9454474485) CALCIUM (test code = 8.6 mg/dL 8.6-10.6 2627256559) eGFR (test code = mL/min/1.73m2 2181411713) MEDHAT (test code = MEDHAT) Association of [...] or urine or abnormalities in imaging tests). [facility] METABOLIC PANEL (NA, K, CL, CO2, GLUCOSE, BUN, CREATININE, CA)2022-04-05 11:08:28 Test Item Value Reference Range Interpretation Comments NA (test code = 137 mmol/L 135-145 6237613087) K (test code = 3.8 mmol/L 3.5-5 1981161068) CL (test code = 104 mmol/L 98-108 6301347155) CO2 TOTAL (test code 27 mmol/L 23-31 = 7979105009) AGAP (test code = 2-16 8327837283) BUN (test code = 13 mg/dL 7-23 2173873275) GLUCOSE (test code = 106 mg/dL 70-110 1934157497) CREATININE (test code 0.58 mg/dL 0.5-1.04 = 3027355606) CALCIUM (test code = 8.6 mg/dL 8.6-10.6 9909029795) eGFR (test code = mL/min/1.73m2 8842036430) MEDHAT (test code = MEDHAT) Association of [...] or urine or abnormalities in imaging tests). [facility] (NA, K, CL, CO2, GLUCOSE, BUN, CREATININE, CA)2022-04-05 11:08:28 Test Item Value Reference Range Interpretation Comments NA (test code = 137 mmol/L 135-145 6377125697) K (test code = 3.8 mmol/L 3.5-5 7677235777) CL (test code = 104 mmol/L 98-108 6501450558) CO2 TOTAL (test code 27 mmol/L 23-31 = 8956352517) AGAP (test code = 2-16 2209743730) BUN (test code = 13 mg/dL 7-23 5953934147) GLUCOSE (test code = 106 mg/dL 70-110 6175439726) CREATININE (test code 0.58 mg/dL 0.5-1.04 = 0313585401) CALCIUM (test code = 8.6 mg/dL 8.6-10.6 3481425083) eGFR (test code = mL/min/1.73m2 4067530281) MEDHAT (test code = MEDHAT) Association of [...] or urine or abnormalities in imaging tests). [facility] METABOLIC PANEL (NA, K, CL, CO2, GLUCOSE, BUN, CREATININE, CA)2022-04-05 11:08:28 Test Item Value Reference Range Interpretation Comments NA (test code = 137 mmol/L 135-145 9643218286) K (test code = 3.8 mmol/L 3.5-5 6236555391) CL (test code = 104 mmol/L 98-108 3110172183) CO2 TOTAL (test code 27 mmol/L 23-31 = 6845843213) AGAP (test code = 2-16 5172167031) BUN (test code = 13 mg/dL 7-23 0374885875) GLUCOSE (test code = 106 mg/dL 70-110 0690479175) CREATININE (test code 0.58 mg/dL 0.5-1.04 = 6771153317) CALCIUM (test code = 8.6 mg/dL 8.6-10.6 3927605957) eGFR (test code = mL/min/1.73m2 2692674478) MEDHAT (test code = MEDHAT) Association of [...] or urine or abnormalities in imaging tests). [facility] METABOLIC PANEL (NA, K, CL, CO2, GLUCOSE, BUN, CREATININE, CA)2022-04-05 11:08:28 Test Item Value Reference Range Interpretation Comments NA (test code = 137 mmol/L 135-145 5568971334) K (test code = 3.8 mmol/L 3.5-5 9949630074) CL (test code = 104 mmol/L 98-108 5012662005) CO2 TOTAL (test code 27 mmol/L 23-31 = 4935438901) AGAP (test code = 2-16 7061171255) BUN (test code = 13 mg/dL 7-23 1182540143) GLUCOSE (test code = 106 mg/dL 70-110 5806333473) CREATININE (test code 0.58 mg/dL 0.5-1.04 = 6331051753) CALCIUM (test code = 8.6 mg/dL 8.6-10.6 7507084622) eGFR (test code = mL/min/1.73m2 6693575886) MEDHAT (test code = MEDHAT) Association of [...] or urine or abnormalities in imaging tests). [facility] METABOLIC PANEL (NA, K, CL, CO2, GLUCOSE, BUN, CREATININE, CA)2022-04-05 11:08:28 Test Item Value Reference Range Interpretation Comments NA (test code = 137 mmol/L 135-145 4381834518) K (test code = 3.8 mmol/L 3.5-5 6811404573) CL (test code = 104 mmol/L 98-108 1684670502) CO2 TOTAL (test code 27 mmol/L 23-31 = 5948613201) AGAP (test code = 2-16 7775753620) BUN (test code = 13 mg/dL 7-23 9875713335) GLUCOSE (test code = 106 mg/dL 70-110 0876859122) CREATININE (test code 0.58 mg/dL 0.5-1.04 = 5897724930) CALCIUM (test code = 8.6 mg/dL 8.6-10.6 4387352984) eGFR (test code = mL/min/1.73m2 5751614547) MEDHAT (test code = MEDHAT) Association of [...] or urine or abnormalities in imaging tests). [facility] METABOLIC PANEL (NA, K, CL, CO2, GLUCOSE, BUN, CREATININE, CA)2022-04-05 11:08:28 Test Item Value Reference Range Interpretation Comments NA (test code = 137 mmol/L 135-145 1526956266) K (test code = 3.8 mmol/L 3.5-5.0 1343406763) CL (test code = 104 mmol/L 98-108 6272908610) CO2 TOTAL (test code 27 mmol/L 23-31 = 8755432519) AGAP (test code = 2-16 5461210591) BUN (test code = 13 mg/dL 7-23 8043773604) GLUCOSE (test code = 106 mg/dL 70-110 2761589807) CREATININE (test code 0.58 mg/dL 0.50-1.04 = 0665269513) CALCIUM (test code = 8.6 mg/dL 8.6-10.6 6792913079) eGFR (test code = mL/min/1.73m2 7524077347) MEDHAT (test code = MEDHAT) Association of [...] or urine or abnormalities in imaging tests). [facility] METABOLIC PANEL (NA, K, CL, CO2, GLUCOSE, BUN, CREATININE, CA)2022-04-05 11:08:28 Test Item Value Reference Range Interpretation Comments NA (test code = 137 mmol/L 135-145 2275108586) K (test code = 3.8 mmol/L 3.5-5.0 5036979866) CL (test code = 104 mmol/L 98-108 8266499038) CO2 TOTAL (test code 27 mmol/L 23-31 = 0752462619) AGAP (test code = 2-16 0690319820) BUN (test code = 13 mg/dL 7-23 5819596255) GLUCOSE (test code = 106 mg/dL 70-110 7066374119) CREATININE (test code 0.58 mg/dL 0.50-1.04 = 9229966731) CALCIUM (test code = 8.6 mg/dL 8.6-10.6 3969033605) eGFR (test code = mL/min/1.73m2 5099363102) MEDHAT (test code = MEDHAT) Association of [...] or urine or abnormalities in imaging tests). [facility] METABOLIC PANEL (NA, K, CL, CO2, GLUCOSE, BUN, CREATININE, CA)2022-04-05 11:08:28 Test Item Value Reference Range Interpretation Comments NA (test code = 137 mmol/L 135-145 0992798091) K (test code = 3.8 mmol/L 3.5-5.0 2514458872) CL (test code = 104 mmol/L 98-108 0079725876) CO2 TOTAL (test code 27 mmol/L 23-31 = 3168920027) AGAP (test code = 2-16 8274341626) BUN (test code = 13 mg/dL 7-23 7975621639) GLUCOSE (test code = 106 mg/dL 70-110 9698750818) CREATININE (test code 0.58 mg/dL 0.50-1.04 = 4347150465) CALCIUM (test code = 8.6 mg/dL 8.6-10.6 1841330802) eGFR (test code = mL/min/1.73m2 0408063534) MEDHAT (test code = MEDHAT) Association of [...] or urine or abnormalities in imaging tests). [facility] METABOLIC PANEL (NA, K, CL, CO2, GLUCOSE, BUN, CREATININE, CA)2022-04-05 11:08:28 Test Item Value Reference Range Interpretation Comments NA (test code = 137 mmol/L 135-145 6576533159) K (test code = 3.8 mmol/L 3.5-5.0 2907073479) CL (test code = 104 mmol/L 98-108 8674188344) CO2 TOTAL (test code 27 mmol/L 23-31 = 4015099953) AGAP (test code = 2-16 4191434569) BUN (test code = 13 mg/dL 7-23 5547566720) GLUCOSE (test code = 106 mg/dL 70-110 8568566317) CREATININE (test code 0.58 mg/dL 0.50-1.04 = 4505131312) CALCIUM (test code = 8.6 mg/dL 8.6-10.6 5946618228) eGFR (test code = mL/min/1.73m2 8642479199) MEDHAT (test code = MEDHAT) Association of [...] or urine or abnormalities in imaging tests). [facility] METABOLIC PANEL (NA, K, CL, CO2, GLUCOSE, BUN, CREATININE, CA)2022-04-05 11:08:28 Test Item Value Reference Range Interpretation Comments NA (test code = 137 mmol/L 135-145 4740154314) K (test code = 3.8 mmol/L 3.5-5.0 4621043127) CL (test code = 104 mmol/L 98-108 1065158977) CO2 TOTAL (test code 27 mmol/L 23-31 = 0190866669) AGAP (test code = 2-16 4193746822) BUN (test code = 13 mg/dL 7-23 6141433307) GLUCOSE (test code = 106 mg/dL 70-110 8344931423) CREATININE (test code 0.58 mg/dL 0.50-1.04 = 2836589047) CALCIUM (test code = 8.6 mg/dL 8.6-10.6 9221563903) eGFR (test code = mL/min/1.73m2 4341103278) MEDHAT (test code = MEDHAT) Association of [...] or urine or abnormalities in imaging tests). [facility] (NA, K, CL, CO2, GLUCOSE, BUN, CREATININE, CA)2022-04-05 11:08:28 Test Item Value Reference Range Interpretation Comments NA (test code = 137 mmol/L 135-145 7569591680) K (test code = 3.8 mmol/L 3.5-5.0 6824619608) CL (test code = 104 mmol/L 98-108 4476155668) CO2 TOTAL (test code 27 mmol/L 23-31 = 7480912247) AGAP (test code = 2-16 6271448998) BUN (test code = 13 mg/dL 7-23 3945082696) GLUCOSE (test code = 106 mg/dL 70-110 4608576824) CREATININE (test code 0.58 mg/dL 0.50-1.04 = 1993648309) CALCIUM (test code = 8.6 mg/dL 8.6-10.6 2419979257) eGFR (test code = mL/min/1.73m2 2579574863) MEDHAT (test code = MEDHAT) Association of [...] or urine or abnormalities in imaging tests). [facility] (NA, K, CL, CO2, GLUCOSE, BUN, CREATININE, CA)2022-04-05 11:08:28 Test Item Value Reference Range Interpretation Comments NA (test code = 137 mmol/L 135-145 7201970886) K (test code = 3.8 mmol/L 3.5-5.0 8037966499) CL (test code = 104 mmol/L 98-108 8051017507) CO2 TOTAL (test code 27 mmol/L 23-31 = 1160292258) AGAP (test code = 2-16 8126788310) BUN (test code = 13 mg/dL 7-23 3636688190) GLUCOSE (test code = 106 mg/dL 70-110 8323276584) CREATININE (test code 0.58 mg/dL 0.50-1.04 = 2642629352) CALCIUM (test code = 8.6 mg/dL 8.6-10.6 9039406693) eGFR (test code = mL/min/1.73m2 6592922105) MEDHAT (test code = MEDHAT) Association of [...] or urine or abnormalities in imaging tests). [facility] with [id number] 10:50:28 Test Item Value Reference Range Interpretation Comments WBC (test code = See_Comment [Automated 8822-2) message] The sy stem which generated this result transmitted reference range : 4.30 - 11.10 10*3/?L. The reference range was not used to interpret this result as normal/abnormal . RBC (test code = See_Comment [Automated 371-1) message] The sy stem which generated this [...] RDW-SD (test code = 43.6 fL 39-49.9 96909-8) RDW-CV (test code = 13.6 % 12-15.5 788-0) PLT (test code = See_Comment [Automated 777-3) message] The sy stem which generated this result transmitted reference range : 166 - 358 10*3/ ?L. The reference r mann was not used to interpret this result as normal/abnormal . MPV (test code = 9.9 fL 9.5-12.9 16089-8) NRBC/100 WBC (test See_Comment [Automat ed code = 8591341252) message] The system which generated this result transmitted reference range : 0.0 - 10.0 /100 WBCs. The refer ence range was not u sed to interpret th is result as normal/abnormal . NRBC x10^3 (test code See_Comment [Auto mated = 2557762100) message] The s ystem which generated this result transmitted reference range : 10*3/?L. The reference range was not used to interpret this result as normal/abnormal . GRAN MAT (NEUT) % 65.5 % (test code = 770-8) IMM GRAN % (test code 0.30 % = 0249698885) LYMPH % (test code = 25.3 % 736-9) MONO % (test code = 8.4 % 5905-5) EOS % (test code = 0.0 % 713-8) BASO % (test code = 0.5 % 706-2) GRAN MAT x10^3(ANC) 6.56 10*3/uL 1.88-7.09 (test code = 8542321048) IMM GRAN x10^3 (test 0.03 10*3/uL 0-0.06 code = 9623771650) LYMPH x10^3 (test code 2.53 10*3/uL 1.32-3.29 = 731-0) MONO x10^3 (test code 0.84 10*3/uL 0.33-0.92 = 742-7) EOS x10^3 (test code = 0.03-0.39 L 711-2) BASO x10^3 (test code 0.05 10*3/uL 0.01-0.07 = 704-7) Lab Interpretation Abnormal (test code = 96619-4) [facility] with [id number] 10:50:28 Test Item Value Reference Range Interpretation Comments WBC (test code = See_Comment [Automated 0890-2) message] The sy stem which generated this [...] RDW-SD (test code = 43.6 fL 39-49.9 21280-8) RDW-CV (test code = 13.6 % 12-15.5 788-0) PLT (test code = See_Comment [Automated 777-3) message] The sy stem which generated this result transmitted reference range : 166 - 358 10*3/ ?L. The reference r mann was not used to interpret this result as normal/abnormal . MPV (test code = 9.9 fL 9.5-12.9 89606-1) NRBC/100 WBC (test See_Comment [Automat ed code = 5790388721) message] The system which generated this result transmitted reference range : 0.0 - 10.0 /100 WBCs. The refer ence range was not u sed to interpret th is result as normal/abnormal . NRBC x10^3 (test code See_Comment [Auto mated = 5877991175) message] The s ystem which generated this result transmitted reference range : 10*3/?L. The reference range was not used to interpret this result as normal/abnormal . GRAN MAT (NEUT) % 65.5 % (test code = 770-8) IMM GRAN % (test code 0.30 % = 5066959341) LYMPH % (test code = 25.3 % 736-9) MONO % (test code = 8.4 % 5905-5) EOS % (test code = 0.0 % 713-8) BASO % (test code = 0.5 % 706-2) GRAN MAT x10^3(ANC) 6.56 10*3/uL 1.88-7.09 (test code = 5403361371) IMM GRAN x10^3 (test 0.03 10*3/uL 0-0.06 code = 4981929332) LYMPH x10^3 (test code 2.53 10*3/uL 1.32-3.29 = 731-0) MONO x10^3 (test code 0.84 10*3/uL 0.33-0.92 = 742-7) EOS x10^3 (test code = 0.03-0.39 L 711-2) BASO x10^3 (test code 0.05 10*3/uL 0.01-0.07 = 704-7) Lab Interpretation Abnormal (test code = 30873-8) [facility] [id number] 01:03:38 Test Item Value Reference Interpretation Comments Range TROPONIN I (test 0.001 ng/mL See_Comment [Automated code = 9590189393) message] The system which generated this result [...] biotin. Lab Interpretation Normal (test code = 84419-7) [facility] [id number] 01:03:38 Test Item Value Reference Interpretation Comments Range TROPONIN I (test 0.001 ng/mL See_Comment [Automated code = 5303940298) message] The system which generated this result [...] biotin. Lab Interpretation Normal (test code = 52030-3) [facility] [id number] 01:03:38 Test Item Value Reference Interpretation Comments Range TROPONIN I (test 0.001 ng/mL See_Comment [Automated code = 2447637564) message] The system which generated this result [...] biotin. Lab Interpretation Normal (test code = 66730-8) [facility] [id number] 01:03:38 Test Item Value Reference Interpretation Comments Range TROPONIN I (test 0.001 ng/mL See_Comment [Automated code = 7066629458) message] The system which generated this result [...] biotin. Lab Interpretation Normal (test code = 34418-4) [facility] [id number] 01:03:38 Test Item Value Reference Interpretation Comments Range TROPONIN I (test 0.001 ng/mL See_Comment [Automated code = 1770833568) message] The system which generated this result [...] biotin. Lab Interpretation Normal (test code = 09670-5) [facility] [id number] 01:03:38 Test Item Value Reference Interpretation Comments Range TROPONIN I (test 0.001 ng/mL See_Comment [Automated code = 5910569695) message] The system which generated this result [...] biotin. Lab Interpretation Normal (test code = 77751-6) [facility] [id number] 01:03:38 Test Item Value Reference Interpretation Comments Range TROPONIN I (test 0.001 ng/mL See_Comment [Automated code = 3021258500) message] The system which generated this result [...] biotin. Lab Interpretation Normal (test code = 81196-6) [facility] [id number] 01:03:38 Test Item Value Reference Interpretation Comments Range TROPONIN I (test 0.001 ng/mL See_Comment [Automated code = 6479130905) message] The system which generated this result [...] biotin. Lab Interpretation Normal (test code = 22046-6) [facility] [id number] 01:03:38 Test Item Value Reference Interpretation Comments Range TROPONIN I (test 0.001 ng/mL See_Comment [Automated code = 7288514001) message] The system which generated this result [...] biotin. Lab Interpretation Normal (test code = 89413-6) [facility] [id number] 01:03:38 Test Item Value Reference Interpretation Comments Range TROPONIN I (test 0.001 ng/mL See_Comment [Automated code = 9840894351) message] The system which generated this result [...] biotin. Lab Interpretation Normal (test code = 18055-4) [facility] [id number] 01:03:38 Test Item Value Reference Interpretation Comments Range TROPONIN I (test 0.001 ng/mL See_Comment [Automated code = 2240826211) message] The system which generated this result [...] biotin. Lab Interpretation Normal (test code = 31909-8) [facility] [id number] 01:03:38 Test Item Value Reference Interpretation Comments Range TROPONIN I (test 0.001 ng/mL See_Comment [Automated code = 1950011439) message] The system which generated this result [...] biotin. Lab Interpretation Normal (test code = 78167-8) [facility] [id number] 01:03:38 Test Item Value Reference Interpretation Comments Range TROPONIN I (test 0.001 ng/mL See_Comment [Automated code = 1856872492) message] The system which generated this result [...] biotin. Lab Interpretation Normal (test code = 67238-5) [facility] [id number] 01:03:38 Test Item Value Reference Interpretation Comments Range TROPONIN I (test 0.001 ng/mL See_Comment [Automated code = 5994740437) message] The system which generated this result [...] biotin. Lab Interpretation Normal (test code = 18491-5) [facility] [id number] 01:03:38 Test Item Value Reference Interpretation Comments Range TROPONIN I (test 0.001 ng/mL See_Comment [Automated code = 2213881127) message] The system which generated this result [...] biotin. Lab Interpretation Normal (test code = 91381-3) [facility] [id number] 01:03:38 Test Item Value Reference Interpretation Comments Range TROPONIN I (test 0.001 ng/mL See_Comment [Automated code = 5384040651) message] The system which generated this result [...] biotin. Lab Interpretation Normal (test code = 99232-5) [facility] [id number] 01:03:38 Test Item Value Reference Interpretation Comments Range TROPONIN I (test 0.001 ng/mL See_Comment [Automated code = 8240037464) message] The system which generated this result [...] biotin. Lab Interpretation Normal (test code = 00844-3) [facility] [id number] 01:03:38 Test Item Value Reference Interpretation Comments Range TROPONIN I (test 0.001 ng/mL See_Comment [Automated code = 9460316103) message] The system which generated this result [...] biotin. Lab Interpretation Normal (test code = 15201-7) [facility] [id number] 01:03:38 Test Item Value Reference Interpretation Comments Range TROPONIN I (test 0.001 ng/mL See_Comment [Automated code = 0603976244) message] The system which generated this result [...] biotin. Lab Interpretation Normal (test code = 41735-0) [facility] [id number] 01:03:38 Test Item Value Reference Interpretation Comments Range TROPONIN I (test 0.001 ng/mL See_Comment [Automated code = [id number]) message] The system which generated this result [...] biotin. Lab Interpretation Normal (test code = 05131-3) [facility] [id number] 01:03:38 Test Item Value Reference Interpretation Comments Range TROPONIN I (test 0.001 ng/mL See_Comment [Automated code = [id number]) message] The system which generated this result [...] biotin. Lab Interpretation Normal (test code = 18554-7) [facility] [id number] 01:03:38 Test Item Value Reference Interpretation Comments Range TROPONIN I (test 0.001 ng/mL See_Comment [Automated code = [id number]) message] The system which generated this result [...] biotin. Lab Interpretation Normal (test code = 44877-8) [facility] [id number] 21:06:03 Test Item Value Reference Range Interpretation Comments ABO & RH (test code A Positive Performe d at [facility] = 20) Laboratory [facility] [place], [place] [id number] Free: [phone] A No. [id number] IAT (test code = Negative Performed a t [facility] 1185) Laboratory [facility] [place], [place] [address]T[employer] Free: [phone] A No. [id number] [facility] [id number] 21:06:03 Test Item Value Reference Range Interpretation Comments ABO & RH (test code A Positive Performe d at [facility] = 20) Laboratory [facility] Blood [address]Toll Free: [phone] A No. [id number] IAT (test code = Negative Performed a t [facility] 1185) Laboratory [facility] Blood Bank[address] [place], [place] [address]Toll Free: [phone] A No. [id number] [facility] - ONCE [id number] 21:06:03 Test Item Value Reference Range Interpretation Comments ABO & RH (test code A Positive Performe d at [facility] = 20) Laboratory [facility] [address] [place], [place] [address]Toll Free: [phone] A No. [id number] IAT (test code = Negative Performed a t [facility] 1185) Laboratory [facility] Blood Bank[address] [place] [address]Fnqe Free: [phone] A No. [id number] [facility] - ONCE [id number] 21:06:03 Test Item Value Reference Range Interpretation Comments ABO & RH (test code A Positive Performe d at [facility] = 20) Laboratory [facility] Blood Bank[address] [place], [place] [address]Toll Free: [phone] A No. [id number] IAT (test code = Negative Performed a t [facility] 1185) Laboratory [facility] Blood Bank[address] [place], [place] [address]Toll Free: [phone] A No. [id number] [facility] [id number] 21:06:03 Test Item Value Reference Range Interpretation Comments ABO & RH (test code A Positive Performe d at [facility] = 20) Laboratory [facility] Blood [address] [place], [place] [address]Toll Free: [phone] A No. [id number] IAT (test code = Negative Performed a t [facility] 1185) Laboratory [facility] [address] [place], [place] [address]Toll Free: [phone] A No. [id number] [facility] [id number] 21:06:03 Test Item Value Reference Range Interpretation Comments ABO & RH (test code A Positive Performe d at [facility] = 20) Laboratory [facility] [address] [place], [place] [address]Toll Free: [phone] A No. [id number] IAT (test code = Negative Performed a t [facility] 1185) Laboratory [facility] [address] [place], [place] [address]Toll Free: [phone] A No. [id number] [facility] [id number] 21:06:03 Test Item Value Reference Range Interpretation Comments ABO & RH (test code A Positive Performe d at [facility] = 20) Laboratory [facility] [address] [place], [place] [address]Toll Free: [phone] A No. [id number] IAT (test code = Negative Performed a t [facility] 1185) Laboratory [facility] Blood [place] [address]Toll Free: [phone] A No. [id number] [facility] [id number] 21:06:03 Test Item Value Reference Range Interpretation Comments ABO & RH (test code A Positive Performe d at [facility] = 20) Laboratory [facility] Blood [place] [address]Toll Free: [phone] A No. [id number] IAT (test code = Negative Performed a t [facility] 1185) Laboratory [facility] Blood [place] [address]Toll Free: [phone] A No. [id number] [facility] - ONCE [id number] 21:06:03 Test Item Value Reference Range Interpretation Comments ABO & RH (test code A Positive Performe d at [facility] = 20) Laboratory [facility] Blood [place] [address]Toll Free: [phone] A No. [id number] IAT (test code = Negative Performed a t [facility] 1185) Laboratory [facility] Blood [place] [address]Toll Free: [phone] A No. [id number] [facility] - ONCE [id number] 21:06:03 Test Item Value Reference Range Interpretation Comments ABO & RH (test code A Positive Performe d at [facility] = 20) Laboratory [facility] [address] [place], [place] [address]Toll Free: [phone] A No. [id number] IAT (test code = Negative Performed a t [facility] 1185) Laboratory [facility] Blood [address] [place], [place] [address]Toll Free: [phone] A No. [id number] [facility] - ONCE [id number] 21:06:03 Test Item Value Reference Range Interpretation Comments ABO & RH (test code A Positive Performe d at [facility] = 20) Laboratory [facility] [address] [place], [place] [address]Toll Free: [phone] A No. [id number] IAT (test code = Negative Performed a t [facility] 1185) Laboratory [facility] Blood [place] [address]Toll Free: [phone] A No. [id number] [facility] - ONCE [id number] 21:06:03 Test Item Value Reference Range Interpretation Comments ABO & RH (test code A Positive Performe d at [facility] = 20) Laboratory [facility] Blood [place] [address]Toll Free: [phone] A No. [id number] IAT (test code = Negative Performed a t [facility] 1185) Laboratory [facility] Blood [place] [address]Toll Free: [phone] A No. [id number] [facility] - ONCE [id number] 21:06:03 Test Item Value Reference Range Interpretation Comments ABO & RH (test code A Positive Performe d at [facility] = 20) Laboratory [facility] Blood [place] [address]Toll Free: [phone] A No. [id number] IAT (test code = Negative Performed a t [facility] 1185) Laboratory [facility] [address] [place], [place] [address]Toll Free: [phone] A No. [id number] [facility] - ONCE [id number] 21:06:03 Test Item Value Reference Range Interpretation Comments ABO & RH (test code A Positive Performe d at [facility] = 20) Laboratory [facility] [address] [place], [place] [address]Toll Free: [phone] A No. [id number] IAT (test code = Negative Performed a t [facility] 1185) Laboratory [facility] [address] [place], [place] [address]Toll Free: [phone] A No. [id number] [facility] - ONCE [id number] 21:06:03 Test Item Value Reference Range Interpretation Comments ABO & RH (test code A Positive Performe d at [facility] = 20) Laboratory [facility] [address] [place], [place] [address]Toll Free: [phone] A No. [id number] IAT (test code = Negative Performed a t [facility] 1185) Laboratory [facility] Blood [place] [address]Toll Free: [phone] A No. [id number] [facility] - ONCE [id number] 21:06:03 Test Item Value Reference Range Interpretation Comments ABO & RH (test code A Positive Performe d at [facility] = 20) Laboratory [facility] Blood [place] [address]Toll Free: [phone] A No. [id number] IAT (test code = Negative Performed a t [facility] 1185) Laboratory [facility] Blood [place] [address]Toll Free: [phone] A No. [id number] [facility] - ONCE [id number] 21:06:03 Test Item Value Reference Range Interpretation Comments ABO & RH (test code A Positive Performe d at [facility] = 20) Laboratory [facility] [address] [place], [place] [address]Toll Free: [phone] A No. [id number] IAT (test code = Negative Performed a t [facility] 1185) Laboratory [facility] [address] [place], [place] [address]Toll Free: [phone] A No. [id number] [facility] - ONCE [id number] 21:06:03 Test Item Value Reference Range Interpretation Comments ABO & RH (test code A Positive Performe d at [facility] = 20) Laboratory [facility] Blood [place] [address]Toll Free: [phone] A No. [id number] IAT (test code = Negative Performed a t [facility] 1185) Laboratory [facility] Blood [place] [address]Toll Free: [phone] A No. [id number] [facility] - ONCE [id number] 21:06:03 Test Item Value Reference Range Interpretation Comments ABO & RH (test code A Positive Performe d at [facility] = 20) Laboratory [facility] Blood [place] [address]Toll Free: [phone] A No. [id number] IAT (test code = Negative Performed a t [facility] 1185) Laboratory [facility] Blood [place] [address]Toll Free: [phone] A No. [id number] [facility] - ONCE [id number] 21:06:03 Test Item Value Reference Range Interpretation Comments ABO & RH (test code A Positive Performe d at [facility] = 20) Laboratory [facility] Blood [place] [address]Toll Free: [phone] A No. [id number] IAT (test code = Negative Performed a t [facility] 1185) Laboratory [facility] Blood [place] [address]Toll Free: [phone] A No. [id number] [facility] - ONCE [id number] 21:06:03 Test Item Value Reference Range Interpretation Comments ABO & RH (test code A Positive Performe d at [facility] = 20) Laboratory [facility] Blood [address] [address]Ogiq Free: [phone] A No. [id number] IAT (test code = Negative Performed a t [facility] 1185) Laboratory [facility] Blood [address] [address]Xqej Free: [phone] A No. [id number] [facility] [id number] 21:06:03 Test Item Value Reference Range Interpretation Comments ABO & RH (test code A Positive Performe d at [facility] = 20) Laboratory [facility] Blood [place] [address]Toll Free: [phone] A No. [id number] IAT (test code = Negative Performed a t [facility] 1185) Laboratory [facility] Blood [place] [address]Toll Free: [phone] A No. [id number] [facility] Confirmation (Lab Only)2022-04-04 20:58:06 Test Item Value Reference Range Interpretation Comments ABO & RH (test code A Positive Performe d at [facility] = 20) Laboratory [facility] Blood [place] [address]Toll Free: [phone] A No. [id number] [facility] Confirmation (Lab Only)2022-04-04 20:58:06 Test Item Value Reference Range Interpretation Comments ABO & RH (test code A Positive Performe d at [facility] = 20) Laboratory [facility] Blood [address] [address]Soej Free: [phone] A No. [id number] [facility] Confirmation (Lab Only)2022-04-04 20:58:06 Test Item Value Reference Range Interpretation Comments ABO & RH (test code A Positive Performe d at [facility] = 20) Laboratory [facility] Blood [place] [id number] Free: [phone] A No. [id number] [facility] Conf[facility] (Lab Only)2022-04-04 20:58:06 Test Item Value Reference Range Interpretation Comments ABO & RH (test code A Positive Performe d at [facility] = 20) Laboratory [facility] Blood [address] [place], [place] [address]Toll Free: [phone] A No. [id number] [facility] Confirmation (Lab Only)2022-04-04 20:58:06 Test Item Value Reference Range Interpretation Comments ABO & RH (test code A Positive Performe d at [facility] = 20) Laboratory [facility] [address] [place], [place] [address]Toll Free: [phone] A No. [id number] [facility] Confirmation (Lab Only)2022-04-04 20:58:06 Test Item Value Reference Range Interpretation Comments ABO & RH (test code A Positive Performe d at [facility] = 20) Laboratory [facility] [address] [place], [place] [address]Toll Free: [phone] A No. [id number] [facility] Confirmation (Lab Only)2022-04-04 20:58:06 Test Item Value Reference Range Interpretation Comments ABO & RH (test code A Positive Performe d at [facility] = 20) Laboratory [facility] [address] [place], [place] [address]Toll Free: [phone] A No. [id number] [facility] Confirmation (Lab Only)2022-04-04 20:58:06 Test Item Value Reference Range Interpretation Comments ABO & RH (test code A Positive Performe d at [facility] = 20) Laboratory [facility] [address] [place], [place] [address]Toll Free: [phone] A No. [id number] [facility] Confirmation (Lab Only)2022-04-04 20:58:06 Test Item Value Reference Range Interpretation Comments ABO & RH (test code A Positive Performe d at [facility] = 20) Laboratory [facility] [address] [place], [place] [address]Toll Free: [phone] A No. [id number] [facility] Confirmation (Lab Only)2022-04-04 20:58:06 Test Item Value Reference Range Interpretation Comments ABO & RH (test code A Positive Performe d at [facility] = 20) Laboratory [facility] Blood [place] [address]Toll Free: [phone] A No. [id number] [facility] Confirmation (Lab Only)2022-04-04 20:58:06 Test Item Value Reference Range Interpretation Comments ABO & RH (test code A Positive Performe d at [facility] = 20) Laboratory [facility] Blood [place] [address]Toll Free: [phone] A No. [id number] [facility] Confirmation (Lab Only)2022-04-04 20:58:06 Test Item Value Reference Range Interpretation Comments ABO & RH (test code A Positive Performe d at [facility] = 20) Laboratory [facility] Blood [place] [address]Toll Free: [phone] A No. [id number] [facility] Confirmation (Lab Only)2022-04-04 20:58:06 Test Item Value Reference Range Interpretation Comments ABO & RH (test code A Positive Performe d at [facility] = 20) Laboratory [facility] [address] [place], [place] [address]Toll Free: [phone] A No. [id number] [facility] Confirmation (Lab Only)2022-04-04 20:58:06 Test Item Value Reference Range Interpretation Comments ABO & RH (test code A Positive Performe d at [facility] = 20) Laboratory [facility] Blood [address] [place], [place] [address]Toll Free: [phone] A No. [id number] [facility] Confirmation (Lab Only)2022-04-04 20:58:06 Test Item Value Reference Range Interpretation Comments ABO & RH (test code A Positive Performe d at [facility] = 20) Laboratory [facility] [address] [place], [place] [address]Toll Free: [phone] A No. [id number] [facility] Confirmation (Lab Only)2022-04-04 20:58:06 Test Item Value Reference Range Interpretation Comments ABO & RH (test code A Positive Performe d at [facility] = 20) Laboratory [facility] [address] [place], [place] [address]Toll Free: [phone] A No. [id number] [facility] Confirmation (Lab Only)2022-04-04 20:58:06 Test Item Value Reference Range Interpretation Comments ABO & RH (test code A Positive Performe d at [facility] = 20) Laboratory [facility] [address] [place], [place] [address]Toll Free: [phone] A No. [id number] [facility] Confirmation (Lab Only)2022-04-04 20:58:06 Test Item Value Reference Range Interpretation Comments ABO & RH (test code A Positive Performe d at [facility] = 20) Laboratory [facility] [address] [place], [place] [address]Toll Free: [phone] A No. [id number] [facility] Confirmation (Lab Only)2022-04-04 20:58:06 Test Item Value Reference Range Interpretation Comments ABO & RH (test code A Positive Performe d at [facility] = 20) Laboratory [facility] [address] [place], [place] [address]Toll Free: [phone] A No. [id number] [facility] Confirmation (Lab Only)2022-04-04 20:58:06 Test Item Value Reference Range Interpretation Comments ABO & RH (test code A Positive Performe d at [facility] = 20) Laboratory [facility] Blood Bank1 [address] [place], [place] [address]Toll Free: [phone] A No. [id number] [facility] Confirmation (Lab Only)2022-04-04 20:58:06 Test Item Value Reference Range Interpretation Comments ABO & RH (test code A Positive Performe d at [facility] = 20) Laboratory [facility] Blood Bank1 [address] [place], [place] [address]Toll Free: [phone] A No. [id number] [facility] Confirmation (Lab Only)2022-04-04 20:58:06 Test Item Value Reference Range Interpretation Comments ABO & RH (test code A Positive Performe d at [facility] = 20) Laboratory [facility] [address] [place], [place] [address]Toll Free: [phone] A No. [id number] [facility], [id number] 19:40:46 Test Item Value Reference Range Interpretation Comments PREG SERUM (test code Negative = [id number]) MEDHAT (test code = MEDHAT) Less than 10 IU/L. ?If low titer or ectopic is suspected, resubmit specimen in 48-[address] [facility], [id number] 19:40:46 Test Item Value Reference Range Interpretation Comments PREG SERUM (test code Negative = [id number]) MEDHAT (test code = MEDHAT) Less than 10 IU/L. ?If low titer or ectopic is suspected, resubmit specimen in 48-72 hours. [facility], [id number] 19:40:46 Test Item Value Reference Range Interpretation Comments PREG SERUM (test code Negative = [id number]) MEDHAT (test code = MEDHAT) Less than 10 IU/L. ?If low titer or ectopic is suspected, resubmit specimen in 48-72 hours. [facility], [id number] 19:40:46 Test Item Value Reference Range Interpretation Comments PREG SERUM (test code Negative = [id number]) MEDHAT (test code = MEDHAT) Less than 10 IU/L. ?If low titer or ectopic is suspected, resubmit specimen in 48-[address] [facility], [id number] 19:40:46 Test Item Value Reference Range Interpretation Comments PREG SERUM (test code Negative = [id number]) MEDHAT (test code = MEDHAT) Less than 10 IU/L. ?If low titer or ectopic is suspected, resubmit specimen in 48-72 hours. [facility], [id number] 19:40:46 Test Item Value Reference Range Interpretation Comments PREG SERUM (test code Negative = 6339755241) MEDHAT (test code = MEDHAT) Less than 10 IU/L. ?If low titer or ectopic is suspected, resubmit specimen in 48-[address] [facility], [id number] 19:40:46 Test Item Value Reference Range Interpretation Comments PREG SERUM (test code Negative = [id number]) MEDHAT (test code = MEDHAT) Less than 10 IU/L. ?If low titer or ectopic is suspected, resubmit specimen in 48-[address] [facility], [id number] 19:40:46 Test Item Value Reference Range Interpretation Comments PREG SERUM (test code Negative = 7248068644) MEDHAT (test code = MEDHAT) Less than 10 IU/L. ?If low titer or ectopic is suspected, resubmit specimen in 48-72 hours. [facility], [id number] 19:40:46 Test Item Value Reference Range Interpretation Comments PREG SERUM (test code Negative = 6347592910) MEDHAT (test code = MEDHAT) Less than 10 IU/L. ?If low titer or ectopic is suspected, resubmit specimen in 48-[address] [facility], [id number] 19:40:46 Test Item Value Reference Range Interpretation Comments PREG SERUM (test code Negative = 1196217223) MEDHAT (test code = MEDHAT) Less than 10 IU/L. ?If low titer or ectopic is suspected, resubmit specimen in 48-[address] [facility], [id number] 19:40:46 Test Item Value Reference Range Interpretation Comments PREG SERUM (test code Negative = 8419143630) MEDHAT (test code = MEDHAT) Less than 10 IU/L. ?If low titer or ectopic is suspected, resubmit specimen in 48-[address] [facility], [id number] 19:40:46 Test Item Value Reference Range Interpretation Comments PREG SERUM (test code Negative = 8844087524) MEDHAT (test code = MEDHAT) Less than 10 IU/L. ?If low titer or ectopic is suspected, resubmit specimen in 48-72 hours. [facility], [id number] 19:40:46 Test Item Value Reference Range Interpretation Comments PREG SERUM (test code Negative = 1226425121) MEDHAT (test code = MEDHAT) Less than 10 IU/L. ?If low titer or ectopic is suspected, resubmit specimen in 48-[address] [facility], [id number] 19:40:46 Test Item Value Reference Range Interpretation Comments PREG SERUM (test code Negative = 2599363477) MEDHAT (test code = MEDHAT) Less than 10 IU/L. ?If low titer or ectopic is suspected, resubmit specimen in 48-[address] [facility], [id number] 19:40:46 Test Item Value Reference Range Interpretation Comments PREG SERUM (test code Negative = 0765774485) MEDHAT (test code = MEDHAT) Less than 10 IU/L. ?If low titer or ectopic is suspected, resubmit specimen in 48-72 hours. [facility], [id number] 19:40:46 Test Item Value Reference Range Interpretation Comments PREG SERUM (test code Negative = [id number]) MEDHAT (test code = MEDHAT) Less than 10 IU/L. ?If low titer or ectopic is suspected, resubmit specimen in 48-[address] [facility], [id number] 19:40:46 Test Item Value Reference Range Interpretation Comments PREG SERUM (test code Negative = 6241037548) MEDHAT (test code = MEDHAT) Less than 10 IU/L. ?If low titer or ectopic is suspected, resubmit specimen in 48-[address] [facility], [id number] 19:40:46 Test Item Value Reference Range Interpretation Comments PREG SERUM (test code Negative = 8385295876) MEDHAT (test code = MEDHAT) Less than 10 IU/L. ?If low titer or ectopic is suspected, resubmit specimen in 48-[address] [facility], [id number] 19:40:46 Test Item Value Reference Range Interpretation Comments PREG SERUM (test code Negative = 6898367354) MEDHAT (test code = MEDHAT) Less than 10 IU/L. ?If low titer or ectopic is suspected, resubmit specimen in 48-[address] [facility], [id number] 19:40:46 Test Item Value Reference Range Interpretation Comments PREG SERUM (test code Negative = 3677765725) MEDHAT (test code = MEDHAT) Less than 10 IU/L. ?If low titer or ectopic is suspected, resubmit specimen in 48-[address] [facility], [id number] 19:40:46 Test Item Value Reference Range Interpretation Comments PREG SERUM (test code Negative = 8536839124) MEDHAT (test code = MEDHAT) Less than 10 IU/L. ?If low titer or ectopic is suspected, resubmit specimen in 48-[address] [facility], [id number] 19:40:46 Test Item Value Reference Range Interpretation Comments PREG SERUM (test code Negative = [id number]) MEDHAT (test code = MEDHAT) Less than 10 IU/L. ?If low titer or ectopic is suspected, resubmit specimen in 48-72 hours. [facility] WITH [id number] 18:55:21 Test Item Value Reference Range Interpretation Comments WBC (test code = See_Comment H [Automated 0130-2) message] The system which generated this result transmit gómez reference range : 4.30 - 11.10 10*3/?L. The reference range was not used to interpret this result as normal/abnormal . RBC (test code = See_Comment [Automated 065-8) message] The system which generated this result [...] RDW-SD (test code = 43.0 fL 39-49.9 24795-7) RDW-CV (test code = 13.2 % 12-15.5 788-0) PLT (test code = See_Comment [Automated 777-3) message] The system which generated this result transmit gómez reference range : 166 - 358 10*3/ ?L. The reference range was not u sed to interpret th is result as normal/abnormal . MPV (test code = 10.8 fL 9.5-12.9 79552-3) NRBC/100 WBC (test See_Comment [Automat ed code = [id number]) message] The system which generated this result transmit gómez reference range : 0.0 - 10.0 /100 WBCs. The reference range was not used to interpret this result as normal/abnormal . NRBC x10^3 (test code See_Comment [Auto mated = [id number]) message] The system which generated this result transmit gómez reference range : 10*3/?L. The reference range was not used to interpret this result as normal/abnormal . GRAN MAT (NEUT) % 82.1 % (test code = 770-8) IMM GRAN % (test code 0.60 % = 8750434741) LYMPH % (test code = 12.4 % 736-9) MONO % (test code = 4.3 % 5905-5) EOS % (test code = 0.1 % 713-8) BASO % (test code = 0.5 % 706-2) GRAN MAT x10^3(ANC) 10.62 10*3/uL 1.88-7.09 H (test code = 9669676249) IMM GRAN x10^3 (test 0.08 10*3/uL 0-0.06 H code = 0305498378) LYMPH x10^3 (test code 1.60 10*3/uL 1.32-3.29 = 731-0) MONO x10^3 (test code 0.56 10*3/uL 0.33-0.92 = 742-7) EOS x10^3 (test code = 0.03-0.39 L 711-2) BASO x10^3 (test code 0.06 10*3/uL 0.01-0.07 = 704-7) Lab Interpretation Abnormal (test code = 54167-7) [facility]. METABOLIC PANEL (30204)2022-04-04 18:55:21 Test Item Value Reference Range Interpretation Comments NA (test code = 141 mmol/L 135-145 7064735920) K (test code = 4.5 mmol/L 3.5-5 8988485907) CL (test code = 103 mmol/L 98-108 9970607192) CO2 TOTAL (test code = 27 mmol/L 23-31 7021128640) AGAP (test code = 2-16 8579897763) BUN (test code = 14 mg/dL 7-23 4651268606) GLUCOSE (test code = 115 mg/dL 70-110 H 6954952254) CREATININE (test code = 0.62 mg/dL 0.5-1.04 7095210013) TOTAL BILI (test code = 0.7 mg/dL 0.1-1.6 1475810415) CALCIUM (test code = 9.5 mg/dL 8.6-10.6 7328575100) T PROTEIN (test code = 7.3 g/dL 6.3-8.2 0576797482) ALBUMIN (test code = 4.7 g/dL 3.5-5 6948430935) ALK PHOS (test code = 65 U/L 34-122 0583000000) ALTv (test code = 22 U/L 5-35 1742-6) AST(SGOT) (test code = 39 U/L 13-40 8929594951) eGFR (test code = mL/min/1.73m2 8690842757) MEDHAT (test code = MEDHAT) Association of [...] tests). Lab Interpretation Abnormal (test code = 63922-1) [facility] Test Item Value Reference Range Interpretation Comments LIPASE (test code = 7832491047) 70 U/L 0-220 Lab Interpretation (test code = Normal 77115-4) [facility] Test Item Value Reference Range Interpretation Comments LIPASE (test code = 9065734019) 70 U/L 0-220 Lab Interpretation (test code = Normal 53444-9) [facility] (24449)2022-04-04 18:55:21 Test Item Value Reference Range Interpretation Comments NA (test code = 141 mmol/L 135-145 2703156496) K (test code = 4.5 mmol/L 3.5-5 9913962759) CL (test code = 103 mmol/L 98-108 8787430864) CO2 TOTAL (test code = 27 mmol/L 23-31 6350403351) AGAP (test code = 2-16 5918961404) BUN (test code = 14 mg/dL 7-23 5644204011) GLUCOSE (test code = 115 mg/dL 70-110 H 4345504310) CREATININE (test code = 0.62 mg/dL 0.5-1.04 2330045309) TOTAL BILI (test code = 0.7 mg/dL 0.1-1.6 7938450398) CALCIUM (test code = 9.5 mg/dL 8.6-10.6 2988917708) T PROTEIN (test code = 7.3 g/dL 6.3-8.2 4241622837) ALBUMIN (test code = 4.7 g/dL 3.5-5 8669585845) ALK PHOS (test code = 65 U/L 34-122 1978157229) ALTv (test code = 22 U/L 5-35 2-6) AST(SGOT) (test code = 39 U/L 13-40 0984557948) eGFR (test code = mL/min/1.73m2 1915677065) MEDHAT (test code = MEDHAT) Association of [...] tests). Lab Interpretation Abnormal (test code = 64955-3) [address]10-03 18:55:21 Test Item Value Reference Range Interpretation Comments LIPASE (test code = 9898525409) 70 U/L 0-220 Lab Interpretation (test code = Normal 14445-7) [address]10-03 18:55:21 Test Item Value Reference Range Interpretation Comments LIPASE (test code = 8110429147) 70 U/L 0-220 Lab Interpretation (test code = Normal 74759-3) [address]10-03 18:55:21 Test Item Value Reference Range Interpretation Comments LIPASE (test code = 3315957320) 70 U/L 0-220 Lab Interpretation (test code = Normal 14918-4) [address]10-03 18:55:21 Test Item Value Reference Range Interpretation Comments LIPASE (test code = 3597763177) 70 U/L 0-220 Lab Interpretation (test code = Normal 97797-3) [address]10-03 18:55:21 Test Item Value Reference Range Interpretation Comments LIPASE (test code = 5394369801) 70 U/L 0-220 Lab Interpretation (test code = Normal 49751-7) [address]10-03 18:55:21 Test Item Value Reference Range Interpretation Comments LIPASE (test code = 5776238273) 70 U/L 0-220 Lab Interpretation (test code = Normal 20544-2) [address]10-03 18:55:21 Test Item Value Reference Range Interpretation Comments LIPASE (test code = 9878350826) 70 U/L 0-220 Lab Interpretation (test code = Normal 34265-1) [address]10-03 18:55:21 Test Item Value Reference Range Interpretation Comments LIPASE (test code = 2793932852) 70 U/L 0-220 Lab Interpretation (test code = Normal 59064-8) [address]10-03 18:55:21 Test Item Value Reference Range Interpretation Comments LIPASE (test code = 0319150784) 70 U/L 0-220 Lab Interpretation (test code = Normal 27296-5) [address]03 18:55:21 Test Item Value Reference Range Interpretation Comments LIPASE (test code = 6285250004) 70 U/L 0-220 Lab Interpretation (test code = Normal 32550-9) [address]03 18:55:21 Test Item Value Reference Range Interpretation Comments LIPASE (test code = 0002480583) 70 U/L 0-220 Lab Interpretation (test code = Normal 45250-1) [address] 18:55:21 Test Item Value Reference Range Interpretation Comments LIPASE (test code = 9299414879) 70 U/L 0-220 Lab Interpretation (test code = Normal 71636-7) [address]03 18:55:21 Test Item Value Reference Range Interpretation Comments LIPASE (test code = 0926203154) 70 U/L 0-220 Lab Interpretation (test code = Normal 72743-3) [address]03 18:55:21 Test Item Value Reference Range Interpretation Comments LIPASE (test code = 9920382332) 70 U/L 0-220 Lab Interpretation (test code = Normal 89492-1) [address] 18:55:21 Test Item Value Reference Range Interpretation Comments LIPASE (test code = 7635564649) 70 U/L 0-220 Lab Interpretation (test code = Normal 27169-2) [address] 18:55:21 Test Item Value Reference Range Interpretation Comments LIPASE (test code = 9796014199) 70 U/L 0-220 Lab Interpretation (test code = Normal 68745-5) [address] 18:55:21 Test Item Value Reference Range Interpretation Comments LIPASE (test code = 6272642701) 70 U/L 0-220 Lab Interpretation (test code = Normal 47408-8) [facility]55[facility]21 Test Item Value Reference Range Interpretation Comments LIPASE (test code = 0747636213) 70 U/L 0-220 Lab Interpretation (test code = Normal 28429-8) [facility] 18:55:21 Test Item Value Reference Range Interpretation Comments LIPASE (test code = 8097524744) 70 U/L 0-220 Lab Interpretation (test code = Normal 38085-6) [facility] 18[facility]55:21 Test Item Value Reference Range Interpretation Comments LIPASE (test code = 2730899447) 70 U/L 0-220 Lab Interpretation (test code = Normal 00190-4) [facility]. METABOLIC PANEL (18846)2022-04-01 04:58:46 Test Item Value Reference Range Interpretation Comments NA (test code = 139 mmol/L 135-145 9848756302) K (test code = 5.0 mmol/L 3.5-5 3157869655) CL (test code = 102 mmol/L 98-108 2573916560) CO2 TOTAL (test code 27 mmol/L 23-31 = 6302596312) AGAP (test code = 2-16 3261898160) BUN (test code = 13 mg/dL 7-23 5064110419) GLUCOSE (test code = 104 mg/dL 70-110 6205672369) CREATININE (test code 0.69 mg/dL 0.5-1.04 = 3932867735) TOTAL BILI (test code 0.5 mg/dL 0.1-1.1 = 6991160355) CALCIUM (test code = 9.6 mg/dL 8.6-10.6 6260396229) T PROTEIN (test code 7.2 g/dL 6.3-8.2 = 9830664995) ALBUMIN (test code = 4.6 g/dL 3.5-5 6131982444) ALK PHOS (test code = 60 U/L 34-122 8230802771) ALTv (test code = 15 U/L 5-35 1742-6) AST(SGOT) (test code 26 U/L 13-40 = 2414710367) eGFR (test code = mL/min/1.73m2 4318846658) MEDHAT (test code = MEDHAT) Association of [...] or urine or abnormalities in imaging tests). [facility]58[facility] Test Item Value Reference Range Interpretation Comments LIPASE (test code = 8118941411) 71 U/L 0-220 Lab Interpretation (test code = Normal 36959-7) [facility] [id number] 04:46:42 Test Item Value Reference Range Interpretation Comments WBC (test code = See_Comment [Automated message] 6690-2) The system [employer] generated this result transmitted ref erence range: 4.30 - 1 1.10 10*3/?L. The re ference range was not u sed to interpret this result as normal/abnor mal. RBC (test code = See_Comment [Automated message] 789-8) The system whic h generated this result [...] RDW-SD (test code 42.5 fL 39-49.9 = 35456-0) RDW-CV (test code 13.2 % 12-15.5 = 788-0) PLT (test code = See_Comment [Automated message] 777-3) The system [employer] generated this result transmitted ref erence range: 166 - 35 8 10*3/?L. The re ference range was not u sed to interpret this result as normal/abnor mal. MPV (test code = 10.4 fL 9.5-12.9 60770-2) NRBC/100 WBC (test See_Comment [Automat ed message] code = 9448194823) The syste m which generated this result transmitted ref erence range: 0.0 - 10 .0 /100 WBCs. The refer ence range was not u sed to interpret this result as normal/abnor mal. NRBC x10^3 (test See_Comment [Automated message] code = 1104115596) The syste m which generated this result transmitted ref erence range: 10*3/?L. The reference range was not used to interpr et this result as normal/abnormal . GRAN MAT (NEUT) % 69.5 % (test code = 770-8) IMM GRAN % (test 0.40 % code = 2959927441) LYMPH % (test code 23.3 % = 736-9) MONO % (test code 5.3 % = 5905-5) EOS % (test code = 0.7 % 713-8) BASO % (test code 0.8 % = 706-2) GRAN MAT 5.73 10*3/uL 1.88-7.09 x10^3(ANC) (test code = 5298676370) IMM GRAN x10^3 0.03 10*3/uL 0-0.06 (test code = 9542818056) LYMPH x10^3 (test 1.92 10*3/uL 1.32-3.29 code = 731-0) MONO x10^3 (test 0.44 10*3/uL 0.33-0.92 code = 742-7) EOS x10^3 (test 0.06 10*3/uL 0.03-0.39 code = 711-2) BASO x10^3 (test 0.07 10*3/uL 0.01-0.07 code = 704-7) [facility] [id number] 04:37:00 Test Item Value Reference Range Interpretation Comments POCT PREG (test code = 1605) negative Lab Interpretation (test code = Normal 38889-8) [facility] [id number] 04:37:00 Test Item Value Reference Range Interpretation Comments POCT PREG (test code = 1605) negative Lab Interpretation (test code = Normal 62654-8) [facility], [id number] 14:05:00 Test Item Value Reference Range Interpretation Comments Coronavirus NAAT, COVD19 SARS results, (test code = including Patient [id number]) Name, or MRN, were Coronavirus NAAT, COVD19 ical-devices/emergenc (test code = h-ldf-hrdusmrbhvpshj. DFRLVEO3SFFN1.1) SARS-CoV-2 NAAT Result: Positive by RT-PCR A (test code = SARS-CoV-2 NAAT Result:) COVID-19 Status: AsymptomaticHCG, Urine Qual (LAB)2021-07-09 14:05:00 Test Item Value Reference Range Interpretation Comments HCG, Urine, Qual (test code = HCGU) Negative Negative Drug Screen,[id number] 14:05:00 Test Item Value Reference Range Interpretation [...] Negative code = UPROP) UA, Urinalysis w [id number] 14:05:00 Test Item Value Reference Range Interpretation Comments Color,Urine (test code = Yellow Yellow UCOL) Clarity,Urine (test code = Clear Clear UCLAR) Ph, Urine (test code = UPH) 8.5 5.0-8.0 H Specific Haynes,Urine 1.020 1.005-1.030 N (test code = USG) [...] Seen A UBACT) Complete Blood Count Auto [id number] 13:20:00 Test Item Value Reference Range Interpretation [...] code = NRBCP) 0 % Comprehensive Metabolic [id number] 13:20:00 Test Item Value Reference Range Interpretation [...] 72 U/L 46-116 N = ALP) Ethanol [id number] 13:20:00 Test Item Value Reference Range Interpretation [...] = HCGU) Negative Negative UA, Urinalysis Rflx Cult/[id number] 00:20:00 Test Item Value Reference Range Interpretation Comments Color,Urine (test code = Yellow Yellow UCOL) Clarity,Urine (test code = Clear Clear UCLAR) PH,Urine (test code = 7.5 5.5-8.5 UPH.XX) Specific Haynes,Urine 1.020 1.005-1.030 N (test code = USG) [...] cells/uL Negative (test code = ULEU) Urine [id number] 00:20:00 Test Item Value Reference Range Interpretation Comments RBC,Urine (test code = URBC.XX) 0-5 /HPF None Seen WBC,Urine (test code = UWBC.XX) 6-10 /HPF None Seen A Squamous Epithelial Cell,Urine 74-200 /HPF None Seen A (test code = USQEPI.XX) Bacteria,Urine (test code = Moderate /HPF None Seen A UBACT) Drug Screen,[id number] 00:20:00 Test Item Value Reference Range Interpretation [...] code = UPROP) Complete Blood Count Auto [id number] 00:09:00 Test Item Value Reference Range Interpretation [...] code = NRBCP) 0 % Comprehensive Metabolic [id number] 00:09:00 Test Item Value Reference Range Interpretation [...] 83 U/L 46-116 N = ALP) Ethanol [id number] 00:09:00 Test Item Value Reference Range Interpretation Comments Ethanol (test code < 3 mg/dL The pharm acological = ETOH) response to blo od alcohol levels mayvary from individual to i ndividual. The fatal ezio ntrationhas been reported t o be >400mg/dL. Coronavirus PCR, COVID19 [id number] 00:08:00 Test Item Value Reference Range Interpretation Comments Coronavirus PCR, For use under Emergency COVID19 Rapid (test Use Authorization (EUA) code = SARSCOV2) only. Coronavirus PCR, Reference Range: COVID19 Rapid (test Negative code = SIYCHJB16.1) SARS-CoV-2 PCR Result: Negative by RT-PCR (test code = SARS-CoV-2 PCR Result:) COVID-19 Status: AsymptomaticCARBAMAZEPHINE (TEGRETOL)2020-09-26 08:42:00 Test Item Value Reference Range Interpretation Comments CARBAMAZPN (test code = 98A) 19.3 ug/mL 4.0-12.0 HH CARBAMAZEPHINE (TEGRETOL)2020-09-26 05:04:00 Test Item Value Reference Range Interpretation Comments CARBAMAZPN (test code = 98A) 20.1 ug/mL 4.0-12.0 HH URINALYSIS WITH [id number] 02:45:00 Test Item Value Reference Range Interpretation [...] code = USPERM) /HPF NONE DRUGS OF [id number] 02:43:00 Test Item Value Reference Range Interpretation [...] the FDA and the [employer] [employer] ([employer]) are more stringent than those required for this test. Therefore, the result should be interpreted with caution and close attention to other clinical and epidemiological data PRO TIME AND [id number] 00:51:00 Test Item Value Reference Range Interpretation [...] Heparin. Order Code is ANTI-XA COMPREHENSIVE METABOLIC [id number] 00:47:00 Test Item Value Reference Range Interpretation [...] as normal/abnormal . GFR 154 See_Comment [Automated MONTENEGRIN (test mL/min/1.73m\\S\\2 message] The code = GFRAA) [...] to interpret this result as normal/abnormal . [id number] 00:47:00 Test Item Value Reference Range Interpretation Comments ACETAMINPH (test code = 94M) 3.6 ug/mL 10.0-30.0 L CARDIAC [id number] 00:47:00 Test Item Value Reference Range Interpretation Comments TROPONIN I (test code = A84) <0.015 ng/mL 0.000-0.045 ALCOHOL BLOOD (ETOH)2020-09-26 00:44:00 Test Item Value Reference Range Interpretation Comments ETOH (test code = ETHANOL HALC) The result is to be used only for medical purposes ALCOHOL (test <10 mg/dL See_Comment [Automated me ssage] code = 56A) The system [employer] generated this result transmit gómez reference range : <=10. The refer ence range was not u sed to interpret th is result as normal/abnormal . [id number] 00:42:00 Test Item Value Reference Range Interpretation Comments SALICYLATE (test code = 94B) <1.7 mg/dL 2.8-20.0 L SERUM [id number] 00:38:00 Test Item Value Reference Range Interpretation [...]
[2022-06-14 22:11] LABS: Urine Specific Gravity/Preg 1.025 (1.005-1.030)
--- NOTE | 2022-06-14 22:30 | RAD REPORT ---
EXAM DESCRIPTION: RAD - Lumbar Spine 3 Views - 06/14/2022 10:23 pm CLINICAL HISTORY: PAIN Radiculopathy COMPARISON: No comparisons FINDINGS: Vertebral body heights appear maintained. No compression fracture noted. Disc spaces are m aintained. No spondylolysis or spondylolisthesis. IMPRESSION: Negative study.
--- NOTE | 2022-06-14 22:30 | RAD REPORT ---
EXAM DESCRIPTION: RAD - Sacrum And Coccyx - 06/14/2022 10:23 pm CLINICAL HISTORY: PAIN COMPARISON: Lumbar Spine 3 Views dated 06/14/2022 FINDINGS: No fracture or subluxation is seen. Symmetric sacroiliac joints.
[2022-06-14] MEDS ORDERED: LIDOCAINE 4% PATCH ONE (22:56)
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
[2022-06-14 23:22] VITALS: BP 101/74; TEMP 97.5; O2SAT 100
== END 2022-06-14 23:17 | disposition home or self-care (01) ==
LOC: ER 21:36
DX: M54.50 Low back pain, unspecified (principal)
CPT/HCPCS: 81025; 81003; 72100; 72220; J2001

== ENCOUNTER 2022-07-04 00:15 | Emergency (ER) | payer OTHER ==
--- OUTSIDE RECORDS SUMMARY | 2022-07-04 00:52 | XMS REPORT | Continuity of Care Document ---
:2000 Author Organization [facility] t Address [address] [place] [address] Care Team Providers Name Role Phone PCP, PATIENT DOES NOT HAVE A Primary Care Physician UnavailBOUCHRA Zambrano Attending Clinician Unavailable Arnaldo BURGER MD, John Attending Clinician JAMES JACOBS Attending Clinician Unavailable DEONNA MELENDREZ Attending Clinician Unavailable Deonna Ferrell Attending Clinician HANDY DOMINGUEZ Attending Clinician Unavailable IRASEMA ROBLEDO Attending Clinician Unavailable Irasema Michel Attending Clinician Shivani Castaneda Attending Clinician [facility] Attending Clinician Unavailable SHIVANI GUERRA Attending Clinician Unavailable Negrita Moise LVN Attending Clinician Keagan Luo MD Attending Clinician [facility], Care Transition Attending Clinician Unavailable NOLVIA HUSAIN Attending Clinician Unavailable Nolvia Husain MD Attending Clinician Doctor Unassigned, [place] Attending Clinician Unavailable Frederick MD, Edythe P Attending Clinician Vaccine, [place] Nitish Attending Clinician Unavailable VIGNESH MACK Attending [...] Clinician TIM HOLGUIN Attending Clinician Unavailable Immunization, [facility] [employer] Attending Clin ician Unavailable CHELSY ROMO [...] Number Effective Date Expiration Date [place] [facility] MEDICAID [place] [id number] 2021 00:00:00 [facility] [id number] 2016 [facility] MEDICAID 00:00:00 Problems Condition Condition Condition Status Onset Resolution Last Treating Co mments Source Name Details Category Date Date Treatment Clinician Date Trauma Trauma Disease Active 2021-07 Univers 0-03 ity of 00:00: [place] 00 Medical Branch Menorrhagi Menorrhagi Disease Active U nivers a with a with 4-29 ity of regular regular 00:00: [place] cycle cycle 00 Medical Branch 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-01 ity of depressive [place] 00:[place] disorder disorder 00 Medica l Branch Bipolar Bipolar Disease Active Overview: Univ ers disorder, disorder, 5-19 Formattin i ty of in partial in partial 00:00: g of this [place] remission, remission, 00 note Me dical most [...] anxiety [place] disorder[place] disorder[place] 00 [facility] Branch Attention Attention Disease Active 2009-1 Overview: Univers deficit deficit 2-22 Formattin ity o f hyperactiv hyperactiv 00:00: g of this [place] ity ity 00 note Medical disorder disorder might be Bran ch (ADHD) (ADHD) different from the original. ICD10 Diagnosis Term [employer] Allergies, Adverse Reactions, Alerts Allergy Allergy [...] Drug Active Univers ALLERGIE Class ity of [facility] Family History Family Member Diagnosis Comments Start Date Stop Date Source Natural brother Psychiatry Universit y of [facility] Natural father Alcohol abuse Univers [facility] Natural father Substance abuse Unive rsity of [facility] Natural mother Psychiatry [facility] Social History Social Habit Start Date Stop Date Quantity Comments Source History [facility] o f Alcohol Comment [place] Med ical Branch Exposure to 2022-06-06 2022-06-16 Not sure [facility] SARS-CoV-2 00:00:00 10:45:00 [facility] (event) Branch Alcohol intake 2022-06-16 2022-06-16 Lifetime University of 00:00:00 00:00:00 non-drinker [facility] (finding) Branch Tobacco use and 2022-01-17 2022-01-17 Smokeless tobacco Un iversity of exposure 00:00:00 00:00:00 non-user [place] Medical Branch History SDPA 2020-04-20 2020-04-20 1 University o f Alcohol Frequency 00:00:00 00:00:00 [place] M edical Branch History SDPA 2020-04-20 2020-04-20 99 University o f Alcohol Std 00:00:00 00:00:00 [place] Medical Drinks Branch History SDPA 2020-04-20 2020-04-20 1 University o f Alcohol Binge 00:00:00 00:00:00 [place] Medic al Branch Sex Assigned At [birth year] Universit y of 00:00:00 00:00:00 [facility] Smoking Status Start Date Stop Date Source Never smoked tobacco [facility] Medications Ordered Filled Start Stop Current Ordering Indication Dosage Frequency Signature Comments Components Source Medication Medication Date Date Medication? Clinician (SIG) Name Name ARIPiprazol 2021-07- No [id number] 300mg Univers e (ABILIFY 2-15 12-15 ity of [place]TE[place]) 17:45: 16:48 [place] injection 00 :00 Medical SSRR 300 mg Branch ARIPiprazol 2021-07- No [id number] 300mg Univers e (ABILIFY 2-15 12-15 ity of [place]TENA) 17:45: 16:48 [place] injection 00 :00 Medical SSRR 300 mg Branch hydrOXYzine 2021-07 Yes [id number] 25mg Take 1 Univers 25 mg 2-12 tablet by ity of tablet 00:00: mouth [place] 00 every 6 Medical (six) Branch hours as needed for Anxiety. lamoTRIgine 2021-07 Yes [id number] 25mg Take 1 Univers 25 mg 2-12 tablet by ity of tablet 00:00: mouth in [place] 00 the Medical morning. Branch naltrexone 2021-07 Yes [id number] 50mg Take 1 Uni vers 50 mg 2-12 tablet by ity of tablet 00:00: mouth in [place] 00 the Medical morning. Branch hydrOXYzine 2021-07 Yes [id number] 25mg Take 1 Univers 25 mg 2-12 tablet by ity of tablet 00:00: mouth [place] 00 every 6 Medical (six) Branch hours as needed for Anxiety. lamoTRIgine 2021-07 Yes [id number] 25mg Take 1 Univers 25 mg 2-12 tablet by ity of tablet 00:00: mouth in [place] 00 the Medical morning. Branch naltrexone 2021-07 Yes [id number] 50mg Take 1 Uni vers 50 mg 2-12 tablet by ity of tablet 00:00: mouth in [place] 00 the Medical morning. Branch hydrOXYzine 2021-07 Yes [id number] 25mg Take 1 Univers 25 mg 2-12 tablet by ity of tablet 00:00: mouth [place] 00 every 6 Medical (six) Branch hours as needed for Anxiety. lamoTRIgine 2021-07 Yes [id number] 25mg Take 1 Univers 25 mg 2-12 tablet by ity of tablet 00:00: mouth in [place] 00 the Medical morning. Branch naltrexone 2021-07 Yes [id number] 50mg Take 1 Uni vers 50 mg 2-12 tablet by ity of tablet 00:00: mouth in [place] 00 the Medical morning. Branch hydrOXYzine 2021-07 Yes [id number] 25mg Take 1 Univers 25 mg 2-12 tablet by ity of tablet 00:00: mouth [place] 00 every 6 Medical (six) Branch hours as needed for Anxiety. lamoTRIgine 2021-07 Yes [id number] 25mg Take 1 Univers 25 mg 2-12 tablet by ity of tablet 00:00: mouth in [place] 00 the Medical morning. Branch naltrexone 2021-07 Yes [id number] 50mg Take 1 Uni vers 50 mg 2-12 tablet by ity of tablet 00:00: mouth in [place] 00 the Medical morning. Branch hydrOXYzine 2021-07 Yes [id number] 25mg Take 1 Univers 25 mg 2-12 tablet by ity of tablet 00:00: mouth [place] 00 every 6 Medical (six) Branch hours as needed for Anxiety. lamoTRIgine 2021-07 Yes [id number] 25mg Take 1 Univers 25 mg 2-12 tablet by ity of tablet 00:00: mouth in [place] 00 the Medical morning. Branch naltrexone 2021-07 Yes [id number] 50mg Take 1 Uni vers 50 mg 2-12 tablet by ity of tablet 00:00: mouth in [place] 00 the Medical morning. Branch hydrOXYzine 2021-07 Yes [id number] 25mg Take 1 Univers 25 mg 2-12 tablet by ity of tablet 00:00: mouth [place] 00 every 6 Medical (six) Branch hours as needed for Anxiety. lamoTRIgine 2021-07 Yes [id number] 25mg Take 1 Univers 25 mg 2-12 tablet by ity of tablet 00:00: mouth in [place] 00 the Medical morning. Branch naltrexone 2021-07 Yes [id number] 50mg Take 1 Uni vers 50 mg 2-12 tablet by ity of tablet 00:00: mouth in [place] 00 the Medical morning. Branch hydrOXYzine 2021- Yes [id number] 25mg Take 1 Univers 25 mg 2-12 tablet by ity of tablet 00:00: mouth [place] 00 every 6 Medical (six) Branch hours as needed for Anxiety. lamoTRIgine 2021-07 Yes [id number] 25mg Take 1 Univers 25 mg 2-12 tablet by ity of tablet 00:00: mouth in [place] 00 the Medical morning. Branch naltrexone 2021-07 Yes [id number] 50mg Take 1 Uni vers 50 mg 2-12 tablet by ity of tablet 00:00: mouth in [place] 00 the Medical morning. Branch hydrOXYzine 2021-07 Yes [id number] 25mg Take 1 Univers 25 mg 2-12 tablet by ity of tablet 00:00: mouth [place] 00 every 6 Medical (six) Branch hours as needed for Anxiety. lamoTRIgine 2021-07 Yes [id number] 25mg Take 1 Univers 25 mg 2-12 tablet by ity of tablet 00:00: mouth in [place] 00 the Medical morning. Branch naltrexone 2021-07 Yes [id number] 50mg Take 1 Uni vers 50 mg 2-12 tablet by ity of tablet 00:00: mouth in [place] 00 the Medical morning. Branch atomoxetine 2021-07- Yes [id number] 60mg Take 1 Univers (STRATTERA) 209-12 capsule by i ty of 60 mg 00:00: 04:59 mouth in [place] capsule 00 :00 the [facility] for 90 days. atomoxetine 2021-07- Yes [id number] 60mg Take 1 Univers (STRATTERA) 209-12 capsule by i ty of 60 mg 00:00: 04:59 mouth in [place] capsule 00 :00 the [facility] for 90 days. atomoxetine 2021-07- Yes [id number] 60mg Take 1 Univers (STRATTERA) 2-09-12 capsule by i ty of 60 mg 00:00: 04:59 mouth in [place] capsule 00 :00 the [facility] for 90 days. atomoxetine 2021-07- Yes [id number] 60mg Take 1 Univers (STRATTERA) 2-09-12 capsule by i ty of 60 mg 00:00: 04:59 mouth in [place] capsule 00 :00 the [facility] for 90 days. atomoxetine 2021-07- Yes [id number] 60mg Take 1 Univers (STRATTERA) 2-09-12 capsule by i ty of 60 mg 00:00: 04:59 mouth in [place] capsule 00 :00 the [facility] for 90 days. atomoxetine 2021-07- Yes [id number] 60mg Take 1 Univers (STRATTERA) 209-12 capsule by i ty of 60 mg 00:00: 04:59 mouth in [place] capsule 00 :00 the Medical morning Branch for 90 days. atomoxetine 2021-07- Yes [id number] 60mg Take 1 Univers (STRATTERA) 2-06 04- capsule by i ty of 60 mg 00:00: 04:59 mouth in [place] capsule 00 :00 the Medical morning Branch for 90 days. atomoxetine 2021-07- Yes [id number] 60mg Take 1 Univers (STRATTERA) 08-14- capsule by i ty of 60 mg 00:00: 04:59 mouth in [place] capsule 00 :00 the Medical morning Branch for 90 days. hydrOXYzine 2021-07- No 25mg 25 mg, Uni vers (ATARAX) -01 06-30 Oral, ity of tablet 25 05:00: 05:14 ONCE, 1 [place] mg 00 :00 dose, On Medical e Branch 05/31/22 at 2300, ARLEN hydrOXYzine 2021-07 Yes [id number] 25mg Take 1 Univers 25 mg 1-29 tablet by ity of tablet 00:00: mouth [place] 00 every 6 Medical (six) Branch hours as needed for Anxiety. hydrOXYzine 2021-07- No [id number] 25mg Take 1 Univers 25 mg 1-29 12-12 tablet by ity of tablet 00:00: 00:00 mouth [place] 00 :00 every 6 Medical (six) Branch hours as needed for Anxiety. hydrOXYzine 2021-07- No [id number] 25mg Take 1 Univers 25 mg 1-29 12-12 tablet by ity of tablet 00:00: 00:00 mouth [place] 00 :00 every 6 Medical (six) Branch hours as needed for Anxiety. hydrOXYzine 2021-07- No [id number] 25mg Take 1 Univers 25 mg 1-29 12-12 tablet by ity of tablet 00:00: 00:00 mouth [place] 00 :00 every 6 Medical (six) Branch hours as needed for Anxiety. hydrOXYzine 2021-07- No [id number] 25mg Take 1 Univers 25 mg 1-29 12-12 tablet by ity of tablet 00:00: 00:00 mouth [place] 00 :00 every 6 Medical (six) Branch hours as needed for Anxiety. ARIPiprazol 2021-07- No [id number] 300mg Univers e (ABILIFY 1-17 11-17 ity of [place]) 17:00: 16:17 [place] injection 00 :00 Medical SSRR 300 mg Branch ARIPiprazol 2021-07- No [id number] 300mg Univers e (ABILIFY 1-17 11-17 ity of [place]TE[place]) 17:00: 16:17 [place] injection 00 :00 Medical SSRR 300 mg Branch ARIPiprazol 2021-07- No [id number] 300mg Univers e (ABILIFY -17 11-17 ity of [place]TENA) 17:00: 16:17 [place] injection 00 :00 Medical SSRR 300 mg Branch ARIPiprazol 2021-07- No [id number] 300mg Univers e (ABILIFY -17 11-17 ity of MA[place]TENA) 17:00: 16:17 [place] injection 00 :00 Medical SSRR 300 mg Branch ARIPiprazol 2021-07- No [id number] 300mg Univers e (ABILIFY -17 11-17 ity of MAINTENA) 17:00: 16:17 [place] injection 00 :00 Medical SSRR 300 mg Branch [facility] Univers [facility] 1-15 ity [facility] 300 [facility]ers [facility] Univers [facility] 1-15 ity of 300 mg sers 00:00: [facility] 2021-07 Yes Univers MAINTENA 1-15 ity of 300 mg sers 00:00: [facility] Y 2021-07 Yes Univers MAINTENA 1-15 ity of 300 mg sers 00:00: Medical [place] [facility] 2021-07 Yes Univers MAINTENA 1-15 ity of 300 mg sers 00:00: [facility] 2021-07 Yes Univers MAINTENA 1-15 ity of 300 mg sers 00:00: [facility] 2021-07 Yes Univers MAINTENA 1-15 ity of 300 mg sers 00:00: Medical [place] Y 2021-07 Yes Univers MAINTENA 1-15 ity of 300 mg sers 00:00: [place] 00 Medical Branch ABILIFY 2021-07 Yes Univers MAINTENA 1-15 ity of 300 mg sers 00:00: [place] 00 Medical Branch lamoTRIgine 2021- Yes [id number] 25mg Take 1 Univers 25 mg 0-31 tablet by ity of tablet 00:00: mouth in [place] 00 the Medical morning. Branch atomoxetine 2021-07 Yes [id number] 40mg Take 1 Univers 40 mg 0-31 capsule by ity of capsule 00:00: mouth in [place] 00 the Medical morning. Branch lamoTRIgine 2021-07 Yes [id number] 25mg Take 1 Univers 25 mg 0-31 tablet by ity of tablet 00:00: mouth in [place] 00 the Medical morning. Branch atomoxetine 2021-07 Yes [id number] 40mg Take 1 Univers 40 mg 0-31 capsule by ity of capsule 00:00: mouth in [place] the Medical morning. Branch lamoTRIgine 2021-07 Yes [id number] 25mg Take 1 Univers 25 mg 0-31 tablet by ity of tablet 00:00: mouth in [place] the Medical morning. Branch atomoxetine 2021-07 Yes [id number] 40mg Take 1 Univers 40 mg 0-31 capsule by ity of capsule 00:00: mouth in [place] the Medical morning. Branch lamoTRIgine 2021-07 Yes [id number] 25mg Take 1 Univers 25 mg 0-31 tablet by ity of tablet 00:00: mouth in [place] the Medical morning. Branch atomoxetine 2021-07 Yes [id number] 40mg Take 1 Univers 40 mg 0-31 capsule by ity of capsule 00:00: mouth in [place] the Medical morning. Branch lamoTRIgine 2021-07 Yes [id number] 25mg Take 1 Univers 25 mg 0-31 tablet by ity of tablet 00:00: mouth in [place] 00 the Medical morning. Branch atomoxetine 2021-07 Yes [id number] 40mg Take 1 Univers 40 mg 0-31 capsule by ity of capsule 00:00: mouth in [place] 00 the Medical morning. Branch lamoTRIgine 2021-07 Yes [id number] 25mg Take 1 Univers 25 mg 0-31 tablet by ity of tablet 00:00: mouth in [place] 00 the Medical morning. Branch atomoxetine 2021-07 Yes [id number] 40mg Take 1 Univers 40 mg 0-31 capsule by ity of capsule 00:00: mouth in [place] 00 the Medical morning. Branch lamoTRIgine 2021-07 Yes [id number] 25mg Take 1 Univers 25 mg 0-31 tablet by ity of tablet 00:00: mouth in [place] 00 the Medical morning. Branch atomoxetine 2021-07 Yes [id number] 40mg Take 1 Univers 40 mg 0-31 capsule by ity of capsule 00:00: mouth in [place] 00 the Medical morning. Branch lamoTRIgine 2021-07 Yes [id number] 25mg Take 1 Univers 25 mg 0-31 tablet by ity of tablet 00:00: mouth in [place] 00 the Medical morning. Branch atomoxetine 2021-07 Yes [id number] 40mg Take 1 Univers 40 mg 0-31 capsule by ity of capsule 00:00: mouth in [place] 00 the Medical morning. Branch lamoTRIgine 2021-07 Yes [id number] 25mg Take 1 Univers 25 mg 0-31 tablet by ity of tablet 00:00: mouth in [place] 00 the Medical morning. Branch atomoxetine 2021-07 Yes [id number] 40mg Take 1 Univers 40 mg 0-31 capsule by ity of capsule 00:00: mouth in [place] 00 the Medical morning. Branch naltrexone 2021-07- Yes [id number] 50mg Take 1 Univers 50 mg 0-31 01-30 tablet by ity of tablet 00:00: 05:59 mouth in [place] 00 :00 the Medical morning Branch for 90 days. naltrexone 2021-07- Yes [id number] 50mg Take 1 Univers 50 mg 0-31 01-30 tablet by ity of tablet 00:00: 05:59 mouth in [place] 00 :00 the Medical morning Branch for 90 days. naltrexone 2021-07- Yes [id number] 50mg Take 1 Univers 50 mg 0-31 01-30 tablet by ity of tablet 00:00: 05:59 mouth in [place] 00 :00 the Medical morning Branch for 90 days. naltrexone 2021-07- Yes [id number] 50mg Take 1 Univers 50 mg 0-31 01-30 tablet by ity of tablet 00:00: 05:59 mouth in [place] 00 :00 the Medical morning Branch for 90 days. naltrexone 2021-07- Yes [id number] 50mg Take 1 Univers 50 mg 0-31 01-30 tablet by ity of tablet 00:00: 05:59 mouth in [place] 00 :00 the Medical morning Branch for 90 days. naltrexone 2021-07- Yes [id number] 50mg Take 1 Univers 50 mg 0-31 01-30 tablet by ity of tablet 00:00: 05:59 mouth in [place] 00 :00 the Medical morning Branch for 90 days. naltrexone 2021-07- Yes [id number] 50mg Take 1 Univers 50 mg 0-31 01-30 tablet by ity of tablet 00:00: 05:59 mouth in [place] 00 :00 the Medical morning Branch for 90 days. naltrexone 2021-07- Yes [id number] 50mg Take 1 Univers 50 mg 0-31 01-30 tablet by ity of tablet 00:00: 05:59 mouth in [place] 00 :00 the Medical morning Branch for 90 days. naltrexone 2021-07- Yes [id number] 50mg Take 1 Univers 50 mg 0-31 01-30 tablet by ity of tablet 00:00: 05:59 mouth in [place] 00 :00 the Medical morning Branch for 90 days. naltrexone 2021-07- No [id number] 50mg Take 1 Univers 50 mg 0-31 12-12 tablet by ity of tablet 00:00: 00:00 mouth in [place] 00 :00 the Medical morning Branch for 90 days. atomoxetine 2021-07- No [id number] 40mg Take 1 Univers 40 mg 0-31 12-12 capsule by ity of capsule 00:00: 00:00 mouth in [place] 00 :00 the Medical morning. Branch lamoTRIgine 2021-07- No [id number] 25mg Take 1 Univers 25 mg 0-31 12-12 tablet by ity of tablet 00:00: 00:00 mouth in [place] 00 :00 the Medical morning. Branch naltrexone 2021-07- No [id number] 50mg Take 1 Univers 50 mg 0-31 12-12 tablet by ity of tablet 00:00: 00:00 mouth in [place] 00 :00 the Medical morning Branch for 90 days. atomoxetine 2021-07- No [id number] 40mg Take 1 Univers 40 mg 0-31 12-12 capsule by ity of capsule 00:00: 00:00 mouth in [place] 00 :00 the Medical morning. Branch lamoTRIgine 2021-07- No [id number] 25mg Take 1 Univers 25 mg 0-31 12-12 tablet by ity of tablet 00:00: 00:00 mouth in [place] 00 :00 the Medical morning. Branch naltrexone 2021-07- No [id number] 50mg Take 1 Univers 50 mg 0-31 12-12 tablet by ity of tablet 00:00: 00:00 mouth in [place] 00 :00 the Medical morning Branch for 90 days. atomoxetine 2021-07- No [id number] 40mg Take 1 Univers 40 mg 0-31 12-12 capsule by ity of capsule 00:00: 00:00 mouth in [place] 00 :00 the Medical morning. Branch lamoTRIgine 2021-07- No [id number] 25mg Take 1 Univers 25 mg 0-31 12-12 tablet by ity of tablet 00:00: 00:00 mouth in [place] 00 :00 the Medical morning. Branch naltrexone 2021-07- No [id number] 50mg Take 1 Univers 50 mg 0-31 12-12 tablet by ity of tablet 00:00: 00:00 mouth in [place] 00 :00 the Medical morning Branch for 90 days. atomoxetine 2021-07- No [id number] 40mg Take 1 Univers 40 mg 0-31 12-12 capsule by ity of capsule 00:00: 00:00 mouth in [place] 00 :00 the Medical morning. Branch lamoTRIgine 2021-07- No [id number] 25mg Take 1 Univers 25 mg 0-31 12-12 tablet by ity of tablet 00:00: 00:00 mouth in [place] 00 :00 the Medical morning. Branch ARIPiprazol 2021-07- No [id number] 300mg Univers e (ABILIFY 0-20 10-20 ity of MAINTENA) 15:15: 15:46 [place] injection 00 :00 Medical SSRR 300 mg Branch ARIPiprazol 2021-07- No [id number] 300mg Univers e (ABILIFY 0-20 10-20 ity of MAINTENA) 15:15: 15:46 [place] injection 00 :00 Medical SSRR 300 mg Branch ARIPiprazol 2021-07- No [id number] 300mg Univers e (ABILIFY 0-20 10-20 ity of MAINTENA) 15:15: 15:46 [place] injection 00 :00 Medical SSRR 300 mg Branch ARIPiprazol 2021-07- No [id number] 300mg Univers e (ABILIFY 0-20 10-20 ity of MAINTENA) 15:15: 15:46 [place] injection 00 :00 Medical SSRR 300 mg Branch ARIPiprazol 2021-07- No [id number] 300mg Univers e (ABILIFY 0-20 10-20 ity of MAINTENA) 15:15: 15:46 [place] injection 00 :00 Medical SSRR 300 mg Branch ARIPiprazol 2021-07- No [id number] 300mg Univers e (ABILIFY 0-20 10-20 ity of MAINTENA) 15:15: 15:46 [place] injection 00 :00 Medical SSRR 300 mg Branch ARIPiprazol 2021-07- Yes [id number] 300mg Univers e (ABILIFY 0-19 10-20 ity of MAINTENA) 15:45: 03:44 [place] injection 00 :00 Medical SSRR 300 mg Branch lamoTRIgine 2021-07 Yes 25mg Take 1 Univ ers 25 mg 0-18 tablet by ity of tablet 00:00: mouth in [place] [address] the Medical morning. Branch lamoTRIgine 2021-07 Yes 25mg Take 1 Univ ers 25 mg 0-18 tablet by ity of tablet 00:00: mouth in [place] [address] the Medical morning. Branch lamoTRIgine 2021- Yes 25mg Take 1 Univ ers 25 mg 0-18 tablet by ity of tablet 00:00: mouth in [place] [address] the Medical morning. Branch lamoTRIgine 2021- Yes 25mg Take 1 Univ ers 25 mg 0-18 tablet by ity of tablet 00:00: mouth in [place] [address] the Medical morning. Branch lamoTRIgine 2021- Yes 25mg Take 1 Univ ers 25 mg 0-18 tablet by ity of tablet 00:00: mouth in [place] [address] the Medical morning. Branch lamoTRIgine 2021- Yes 25mg Take 1 Univ ers 25 mg 0-18 tablet by ity of tablet 00:00: mouth in [place] 00 the Medical morning. Branch lamoTRIgine 2-1 Yes 25mg Take 1 Univ ers 25 mg 0-18 tablet by ity of tablet 00:00: mouth in [place] 00 the Medical morning. Branch lamoTRIgine 2-1 Yes 25mg Take 1 Univ ers 25 mg 0-18 tablet by ity of tablet 00:00: mouth in [place] 00 the Medical morning. Branch lamoTRIgine 2-1 Yes 25mg Take 1 Univ ers 25 mg 0-18 tablet by ity of tablet 00:00: mouth in [place] 00 the Medical morning. Branch lamoTRIgine 2-1 Yes 25mg Take 1 Univ ers 25 mg 0-18 tablet by ity of tablet 00:00: mouth in [place] 00 the Medical morning. Branch lamoTRIgine 2-1 Yes 25mg Take 1 Univ ers 25 mg 0-18 tablet by ity of tablet 00:00: mouth in [place] 00 the Medical morning. Branch lamoTRIgine 2021-1 Yes 25mg Take 1 Univ ers 25 mg 0-18 tablet by ity of tablet 00:00: mouth in [place] 00 the Medical morning. Branch lamoTRIgine 2-1 2022- No 25mg Take 1 Uni vers 25 mg 0-18 10-31 tablet by ity of tablet 00:00: 00:00 mouth in [place] 00 :00 the Medical morning. Branch lamoTRIgine 2-1 2022- No 25mg Take 1 Uni vers 25 mg 0-18 10-31 tablet by ity of tablet 00:00: 00:00 mouth in [place] 00 :00 the Medical morning. Branch lamoTRIgine 2022-1 2022- No 25mg Take 1 Uni vers 25 mg 0-18 10-31 tablet by ity of tablet 00:00: 00:00 mouth in [place] 00 :00 the Medical morning. Branch lamoTRIgine 2-1 2022- No 25mg Take 1 Uni vers 25 mg 0-18 10-31 tablet by ity of tablet 00:00: 00:00 mouth in [place] 00 :00 the Medical morning. Branch atomoxetine 2-1 Yes [id number] 40mg Take 1 Univers 40 mg 0-13 capsule by ity of capsule 00:00: mouth in [place] 00 the Medical morning. Branch atomoxetine 2-1 Yes [id number] 40mg Take 1 Univers 40 mg 0-13 capsule by ity of capsule 00:00: mouth in [place] the Medical morning. Branch atomoxetine 2021-07 Yes [id number] 40mg Take 1 Univers 40 mg 0-13 capsule by ity of capsule 00:00: mouth in [place] the Medical morning. Branch atomoxetine 2021-07 Yes [id number] 40mg Take 1 Univers 40 mg 0-13 capsule by ity of capsule 00:00: mouth in [place] the Medical morning. Branch atomoxetine 2021-07 Yes [id number] 40mg Take 1 Univers 40 mg 0-13 capsule by ity of capsule 00:00: mouth in [place] the Medical morning. Branch atomoxetine 2021-07 Yes [id number] 40mg Take 1 Univers 40 mg 0-13 capsule by ity of capsule 00:00: mouth in [place] the Medical morning. Branch atomoxetine 2021-07 Yes [id number] 40mg Take 1 Univers 40 mg 0-13 capsule by ity of capsule 00:00: mouth in [place] the Medical morning. Branch atomoxetine 2021-07 Yes [id number] 40mg Take 1 Univers 40 mg 0-13 capsule by ity of capsule 00:00: mouth in [place] the Medical morning. Branch atomoxetine 2021-07 Yes [id number] 40mg Take 1 Univers 40 mg 0-13 capsule by ity of capsule 00:00: mouth in [place] the Medical morning. Branch atomoxetine 2021-07 Yes [id number] 40mg Take 1 Univers 40 mg 0-13 capsule by ity of capsule 00:00: mouth in [place] the Medical morning. Branch atomoxetine 2021-07 Yes [id number] 40mg Take 1 [facility] 40 mg 0-13 capsule by [facility] capsule 00:00: mouth in [place] the Medical morning. Branch atomoxetine 2021-07 Yes [id number] 40mg Take 1 [facility] 40 mg 0-13 capsule by [facility] of capsule 00:00: mouth in [place] the Medical morning. Branch atomoxetine 2021-07 Yes [id number] 40mg Take 1 [facility] 40 mg 0-13 capsule by [facility] of capsule 00:00: mouth in [place] the Medical morning. Branch atomoxetine 2021- Yes [id number] 40mg Take 1 [facility] 40 mg 0-13 capsule by [facility] of capsule 00:00: mouth in [place] the Medical morning. Branch atomoxetine 2021-07 Yes [id number] 40mg Take 1 [facility] 40 mg 0-13 capsule by [facility] of capsule 00:00: mouth in [place] 00 the Medical morning. Branch atomoxetine 2021-07 Yes [id number] 40mg Take 1 [facility] 40 mg 0-13 capsule by [facility] of capsule 00:00: mouth in [place] 00 the Medical morning. Branch atomoxetine 2021-07 Yes [id number] 40mg Take 1 [facility] 40 mg 0-13 capsule by [facility] of capsule 00:00: mouth in [place] 00 the Medical morning. Branch atomoxetine 2021-07 Yes [id number] 40mg Take 1 [facility] 40 mg 0-13 capsule by [facility] of capsule 00:00: mouth in [place] 00 the Medical morning. Branch atomoxetine 2021-07- No [id number] 40mg Take 1 [facility] 40 mg 0-13 10-31 capsule by [facility] of capsule 00:00: 00:00 mouth in [place] 00 :00 the Medical morning. Branch atomoxetine 2021-07- No [id number] 40mg Take 1 [facility] 40 mg 0-13 10-31 capsule by ity of capsule 00:00: 00:00 mouth in [place] 00 :00 the Medical morning. Branch atomoxetine 2021-07- No [id number] 40mg Take 1 [facility] 40 mg 0-13 10-31 capsule by ity of capsule 00:00: 00:00 mouth in [place] 00 :00 the Medical morning. Branch atomoxetine 2021-07- No [id number] 40mg Take 1 [facility] 40 mg 0-13 10-31 capsule by ity of capsule 00:00: 00:00 mouth in [place] 00 :00 the Medical morning. [facility] NaCl 0.9% 2021-07- No 1000mL at 999 [facility] vers (NS) bolus 0-09 10-10 mL/hr, ity of infusion 23:45: 03:09 1,000 mL, [place] as 1,000 mL 00 :00 IV Medical Infusion, Michael ONCE, 1 dose, On 04/10/22 at 1845, [place] atomoxetine 2021-07 Yes 40mg Take 1 [facility] ers 40 mg 0-07 capsule by ity of capsule 00:00: mouth in [place] 00 the Medical morning. [facility] lamoTRIgine 2021-07 Yes 25mg Take 1 [facility] ers 25 mg 0-07 tablet by ity of tablet 00:00: mouth in [place] 00 the Medical morning. Branch atomoxetine 2021- Yes 40mg Take 1 [facility] ers 40 mg 0-07 capsule by ity of capsule 00:00: mouth in [place] the Medical morning. Branch lamoTRIgine 2021- Yes 25mg Take 1 [facility] ers 25 mg 0-07 tablet by ity of tablet 00:00: mouth in [place] the Medical morning. Branch atomoxetine 2021- Yes 40mg Take 1 [facility] ers 40 mg 0-07 capsule by ity of capsule 00:00: mouth in [place] the Medical morning. Branch lamoTRIgine 2021- Yes 25mg Take 1 [facility] ers 25 mg 0-07 tablet by ity of tablet 00:00: mouth in [place] the Medical morning. Branch atomoxetine 2021- Yes 40mg Take 1 [facility] ers 40 mg 0-07 capsule by [facility] of capsule 00:00: mouth in [place] the Medical morning. Branch lamoTRIgine 2021- Yes 25mg Take 1 [facility] ers 25 mg 0-07 tablet by ity of tablet 00:00: mouth in [place] the Medical morning. Branch lamoTRIgine 2021- Yes 25mg Take 1 [facility] ers 25 mg 0-07 tablet by ity of tablet 00:00: mouth in [place] the Medical morning. Branch lamoTRIgine 2021- Yes 25mg Take 1 [facility] ers 25 mg 0-07 tablet by ity of tablet 00:00: mouth in [place] the Medical morning. Branch lamoTRIgine 2021- Yes 25mg Take 1 [facility] ers 25 mg 0-07 tablet by ity of tablet 00:00: mouth in [place] the Medical morning. Branch lamoTRIgine 2021- Yes 25mg Take 1 [facility] ers 25 mg 0-07 tablet by ity of tablet 00:00: mouth in [place] the Medical morning. Branch lamoTRIgine 2021-1 Yes 25mg Take 1 [facility] ers 25 mg 0-07 tablet by ity of tablet 00:00: mouth in [place] the Medical morning. Branch lamoTRIgine 2021-1 Yes 25mg Take 1 [facility] ers 25 mg 0-07 tablet by ity of tablet 00:00: mouth in [place] 00 the Medical morning. Branch polyethylen 2021-2021- Yes [id number] 17g Take 1 [facility] e glycol 0-07 11-07 Packet by ity o f 3350 17 00:00: 05:59 mouth in [place] gram powder 00 :00 the Medical morning Branch for 30 days. polyethylen 2021-07- Yes [id number] 17g Take 1 [facility] e glycol 0-07 11-07 Packet by ity o f 3350 17 00:00: 05:59 mouth in [place] gram powder 00 :00 the Medical morning Branch for 30 days. polyethylen 2021-07- Yes [id number] 17g Take 1 [facility] e glycol 0-07 11-07 Packet by ity o f 3350 17 00:00: 05:59 mouth in [place] gram powder 00 :00 the Medical morning Branch for 30 days. polyethylen 2021-07- Yes [id number] 17g Take 1 [facility] e glycol 0-07 11-07 Packet by ity o f 3350 17 00:00: 05:59 mouth in [place] gram powder 00 :00 the Medical morning Branch for 30 days. polyethylen 2021-07- Yes [id number] 17g Take 1 [facility] e glycol 0-07 11-07 Packet by ity o f 3350 17 00:00: 05:59 mouth in [place] gram powder 00 :00 the Medical morning Branch for 30 days. polyethylen 2021-07- Yes [id number] 17g Take 1 [facility] e glycol 0-07 11-07 Packet by ity o f 3350 17 00:00: 05:59 mouth in [place] gram powder 00 :00 the Medical morning Branch for 30 days. polyethylen 2021-07- Yes [id number] 17g Take 1 [facility] e glycol 0-07 11-07 Packet by ity o f 3350 17 00:00: 05:59 mouth in [place] gram powder 00 :00 the Medical morning Branch for 30 days. polyethylen 2021-07- Yes [id number] 17g Take 1 [facility] e glycol 0-07 11-07 Packet by ity o f 3350 17 00:00: 05:59 mouth in [place] gram powder 00 :00 the Medical morning Branch for 30 days. polyethylen 2021-07- Yes [id number] 17g Take 1 [facility] e glycol 0-07 11-07 Packet by ity o f 3350 17 00:00: 05:59 mouth in [place] gram powder 00 :00 the Medical morning Branch for 30 days. polyethylen 2021-07- Yes [id number] 17g Take 1 [facility] e glycol 0-07 11-07 Packet by ity o f 3350 17 00:00: 05:59 mouth in [place] gram powder 00 :00 the [facility] morning Branch for 30 days. polyethylen 2021-07- Yes [id number] 17g Take 1 [facility] e glycol 0-07 11-07 Packet by ity o f 3350 17 00:00: 05:59 mouth in [place] gram powder 00 :00 the [facility] morning Branch for 30 days. polyethylen 2021-07- Yes [id number] 17g Take 1 [facility] e glycol 0-07 11-07 Packet by ity o f 3350 17 00:00: 05:59 mouth in [place] gram powder 00 :00 the [facility] morning Branch for 30 days. polyethylen 2021-07- Yes [id number] 17g Take 1 [facility] e glycol 0-07 11-07 Packet by ity o f 3350 17 00:00: 05:59 mouth in [place] gram powder 00 :00 the [facility] morning Branch for 30 days. polyethylen 2021-07- Yes [id number] 17g Take 1 [facility] e glycol 0-07 11-07 Packet by ity o f 3350 17 00:00: 05:59 mouth in [place] gram powder 00 :00 the [facility] morning Branch for 30 days. polyethylen 2021-07- Yes [id number] 17g Take 1 [facility] e glycol 0-07 11-07 Packet by ity o f 3350 17 00:00: 05:59 mouth in [place] gram powder 00 :00 the [facility] morning Branch for 30 days. polyethylen 2021-07- Yes [id number] 17g Take 1 [facility] e glycol 0-07 11-07 Packet by ity o f 3350 17 00:00: 05:59 mouth in [place] gram powder 00 :00 the [facility] morning Branch for 30 days. polyethylen 2021-07- Yes [id number] 17g Take 1 [facility] e glycol 0-07 11-07 Packet by ity o f 3350 17 00:00: 05:59 mouth in [place] gram powder 00 :00 the Medical morning Branch for 30 days. polyethylen 2021-07- Yes [id number] 17g Take 1 [facility] e glycol 0-07 11-07 Packet by ity o f 3350 17 00:00: 05:59 mouth in [place] gram powder 00 :00 the Medical morning Branch for 30 days. polyethylen 2021-07- Yes [id number] 17g Take 1 [facility] e glycol 0-07 11-07 Packet by ity o f 3350 17 00:00: 05:59 mouth in [place] gram powder 00 :00 the Medical morning Branch for 30 days. polyethylen 2021-07- Yes [id number] 17g Take 1 [facility] e glycol 0-07 11-07 Packet by ity o f 3350 17 00:00: 05:59 mouth in [place] gram powder 00 :00 the Medical morning Branch for 30 days. polyethylen 2021-07- Yes [id number] 17g Take 1 [facility] e glycol 0-07 11-07 Packet by ity o f 3350 17 00:00: 05:59 mouth in [place] gram powder 00 :00 the Medical morning Branch for 30 days. polyethylen 2021-07- Yes [id number] 17g Take 1 [facility] e glycol 0-07 11-07 Packet by ity o f 3350 17 00:00: 05:59 mouth in [place] gram powder 00 :00 the Medical morning Branch for 30 days. polyethylen 2021-07- Yes [id number] 17g Take 1 [facility] e glycol 0-07 11-07 Packet by ity o f 3350 17 00:00: 05:59 mouth in [place] gram powder 00 :00 the Medical morning Branch for 30 days. polyethylen 2021-07- Yes [id number] 17g Take 1 [facility] e glycol 0-07 11-07 Packet by ity o f 3350 17 00:00: 05:59 mouth in [place] gram powder 00 :00 the Medical morning Branch for 30 days. polyethylen 2021-07- Yes [id number] 17g Take 1 [facility] e glycol 0-07 11-07 Packet by ity o f 3350 17 00:00: 05:59 mouth in [place] gram powder 00 :00 the Medical morning Branch for 30 days. polyethylen 2021-07- No [id number] 17g Take 1 [facility] e glycol 0-07 11-07 Packet by ity o f 3350 17 00:00: 05:59 mouth in [place] gram powder 00 :00 the Medical morning Branch for 30 days. lamoTRIgine 2021-1 2022- No 25mg Take 1 [facility] vers 25 mg 0-07 10-18 tablet by ity of tablet 00:00: 00:00 mouth in [place] 00 :00 the Medical morning. Branch lamoTRIgine 2021-1 2- No 25mg Take 1 [facility] vers 25 mg 0-07 10-18 tablet by ity of tablet 00:00: 00:00 mouth in [place] 00 :00 the Medical morning. Branch lamoTRIgine 2-1 2- No 25mg Take 1 [facility] vers 25 mg 0-07 10-18 tablet by ity of tablet 00:00: 00:00 mouth in [place] 00 :00 the Medical morning. [place] lamoTRIgine 2-1 2- No 25mg Take 1 [facility] vers 25 mg 0-07 10-18 tablet by ity of tablet 00:00: 00:00 mouth in [place] 00 :00 the Medical morning. Branch lamoTRIgine 2-1 2- No 25mg Take 1 [facility] vers 25 mg 0-07 10-18 tablet by ity of tablet 00:00: 00:00 mouth in [place] 00 :00 the Medical morning. Branch lamoTRIgine 2-1 2- No 25mg Take 1 [facility] vers 25 mg 0-07 10-18 tablet by ity of tablet 00:00: 00:00 mouth in [place] 00 :00 the Medical morning. Branch lamoTRIgine 2-1 2- No 25mg Take 1 [facility] vers 25 mg 0-07 10-18 tablet by ity of tablet 00:00: 00:00 mouth in [place] 00 :00 the Medical morning. Branch lamoTRIgine 2-1 2- No 25mg Take 1 [facility] vers 25 mg 0-07 10-18 tablet by ity of tablet 00:00: 00:00 mouth in [place] 00 :00 the Medical morning. Branch lamoTRIgine 2022-1 2022- No 25mg Take 1 [facility] vers 25 mg 0-07 10-18 tablet by ity of tablet 00:00: 00:00 mouth in [place] 00 :00 the Medical morning. Branch lamoTRIgine 2022-1 2022- No 25mg Take 1 [facility] vers 25 mg 0-07 10-18 tablet by ity of tablet 00:00: 00:00 mouth in [place] 00 :00 the Medical morning. Branch lamoTRIgine 2021-07- No 25mg Take 1 [facility] vers 25 mg 0-07 10-18 tablet by ity of tablet 00:00: 00:00 mouth in [place] 00 :00 the Medical morning. Branch tamsulosin 2021-07- Yes [id number] .4mg Take 1 [facility] 0.4 mg 24 0-07 10-15 capsule by ity of hr capsule 00:00: 04:59 mouth in [place] 00 :00 the Medical morning Branch for 7 days. tamsulosin 2021-07- Yes [id number] .4mg Take 1 [facility] 0.4 mg 24 0-07 10-15 capsule by ity of hr capsule 00:00: 04:59 mouth in [place] 00 :00 the Medical morning Branch for 7 days. tamsulosin 2021-07- Yes [id number] .4mg Take 1 [facility] 0.4 mg 24 0-07 10-15 capsule by ity of hr capsule 00:00: 04:59 mouth in [place] 00 :00 the Medical morning Branch for 7 days. tamsulosin 2021-07- Yes [id number] .4mg Take 1 [facility] 0.4 mg 24 0-07 10-15 capsule by ity of hr capsule 00:00: 04:59 mouth in [place] 00 :00 the Medical morning Branch for 7 days. tamsulosin 2021-07- Yes [id number] .4mg Take 1 [facility] 0.4 mg 24 0-07 10-15 capsule by ity of hr capsule 00:00: 04:59 mouth in [place] 00 :00 the Medical morning Branch for 7 days. tamsulosin 2021-07- No [id number] .4mg Take 1 [facility] 0.4 mg 24 0-07 10-15 capsule by ity of hr capsule 00:00: 04:59 mouth in [place] 00 :00 the Medical morning Branch for 7 days. tamsulosin 2021-07- No [id number] .4mg Take 1 [facility] 0.4 mg 24 0-07 10-15 capsule by ity of hr capsule 00:00: 04:59 mouth in [place] 00 :00 the Medical morning Branch for 7 days. tamsulosin 2021-07- No [id number] .4mg Take 1 [facility] 0.4 mg 24 0-07 10-15 capsule by ity of hr capsule 00:00: 04:59 mouth in [place] 00 :00 the Medical morning Branch for 7 days. tamsulosin 2021-07- No [id number] .4mg Take 1 [facility] 0.4 mg 24 0-07 10-15 capsule by ity of hr capsule 00:00: 04:59 mouth in [place] 00 :00 the Medical morning Branch for 7 days. tamsulosin 2021-07- No [id number] .4mg Take 1 [facility] 0.4 mg 24 0-07 10-15 capsule by ity of hr capsule 00:00: 04:59 mouth in [place] 00 :00 the [facility] morning Branch for 7 days. tamsulosin 2021-07- No [id number] .4mg Take 1 [facility] 0.4 mg 24 0-07 10-15 capsule by ity of hr capsule 00:00: 04:59 mouth in [place] 00 :00 the [facility] morning Branch for 7 days. tamsulosin 2021-07- No [id number] .4mg Take 1 [facility] 0.4 mg 24 0-07 10-15 capsule by ity of hr capsule 00:00: 04:59 mouth in [place] 00 :00 the [facility] morning Branch for 7 days. tamsulosin 2021-07- No [id number] .4mg Take 1 [facility] 0.4 mg 24 0-07 10-15 capsule by ity of hr capsule 00:00: 04:59 mouth in [place] 00 :00 the [facility] morning Branch for 7 days. tamsulosin 2021-07- No [id number] .4mg Take 1 [facility] 0.4 mg 24 0-07 10-15 capsule by ity of hr capsule 00:00: 04:59 mouth in [place] 00 :00 the Medical morning Branch for 7 days. tamsulosin 2021-07- No [id number] .4mg Take 1 [facility] 0.4 mg 24 0-07 10-15 capsule by ity of hr capsule 00:00: 04:59 mouth in [place] 00 :00 the [facility] morning Branch for 7 days. tamsulosin 2021-07- No [id number] .4mg Take 1 [facility] 0.4 mg 24 0-07 10-15 capsule by ity of hr capsule 00:00: 04:59 mouth in [place] 00 :00 the Medical morning Branch for 7 days. tamsulosin 2021-07- No [id number] .4mg Take 1 [facility] 0.4 mg 24 0-07 10-15 capsule by ity of hr capsule 00:00: 04:59 mouth in [place] 00 :00 the Medical morning Branch for 7 days. tamsulosin 2021-07- No [id number] .4mg Take 1 [facility] 0.4 mg 24 0-07 10-15 capsule by ity of hr capsule 00:00: 04:59 mouth in [place] 00 :00 the Medical morning Branch for 7 days. tamsulosin 2021-07- No [id number] .4mg Take 1 [facility] 0.4 mg 24 0-07 10-15 capsule by ity of hr capsule 00:00: 04:59 mouth in [place] 00 :00 the Medical morning Branch for 7 days. tamsulosin 2021-07- No [id number] .4mg Take 1 [facility] 0.4 mg 24 0-07 10-15 capsule by ity of hr capsule 00:00: 04:59 mouth in [place] 00 :00 the Medical morning Branch for 7 days. tamsulosin 2021-07- No [id number] .4mg Take 1 [facility] 0.4 mg 24 0-07 10-15 capsule by ity of hr capsule 00:00: 04:59 mouth in [place] 00 :00 the Medical morning Branch for 7 days. atomoxetine 2021-07- No 40mg Take 1 [facility] vers 40 mg 0-07 10-13 capsule by ity of capsule 00:00: 00:00 mouth in [place] 00 :00 the Medical morning. Branch atomoxetine 2021-07- No 40mg Take 1 [facility] vers 40 mg 0-07 10-13 capsule by ity of capsule 00:00: 00:00 mouth in [place] 00 :00 the Medical morning. Branch atomoxetine 2021-07- No 40mg Take 1 [facility] vers 40 mg 0-07 10-13 capsule by ity of capsule 00:00: 00:00 mouth in [place] 00 :00 the Medical morning. Branch atomoxetine 2-1 2022- No 40mg Take 1 [facility] vers 40 mg 0-07 10-13 capsule by ity of capsule 00:00: 00:00 mouth in [place] 00 :00 the Medical morning. Branch atomoxetine 2-1 2022- No 40mg Take 1 [facility] vers 40 mg 0-07 10-13 capsule by ity of capsule 00:00: 00:00 mouth in [place] 00 :00 the Medical morning. Branch atomoxetine 2-1 2022- No 40mg Take 1 [facility] vers 40 mg 0-07 10-13 capsule by ity of capsule 00:00: 00:00 mouth in [place] 00 :00 the Medical morning. Branch atomoxetine 2-1 2- No 40mg Take 1 [facility] vers 40 mg 0-07 10-13 capsule by ity of capsule 00:00: 00:00 mouth in [place] 00 :00 the Medical morning. Branch atomoxetine 2-1 2022- No 40mg Take 1 [facility] vers 40 mg 0-07 10-13 capsule by ity of capsule 00:00: 00:00 mouth in [place] 00 :00 the Medical morning. Branch atomoxetine 2-1 2- No 40mg Take 1 [facility] vers 40 mg 0-07 10-13 capsule by ity of capsule 00:00: 00:00 mouth in [place] 00 :00 the Medical morning. Branch atomoxetine 2-1 2022- No 40mg Take 1 [facility] vers 40 mg 0-07 10-13 capsule by ity of capsule 00:00: 00:00 mouth in [place] 00 :00 the Medical morning. Branch atomoxetine 2-1 2022- No 40mg Take 1 [facility] vers 40 mg 0-07 10-13 capsule by ity of capsule 00:00: 00:00 mouth in [place] 00 :00 the Medical morning. Branch atomoxetine 2-1 2022- No 40mg Take 1 [facility] vers 40 mg 0-07 10-13 capsule by ity of capsule 00:00: 00:00 mouth in [place] 00 :00 the Medical morning. Branch atomoxetine 2022-1 2022- No 40mg Take 1 [facility] vers 40 mg 0-07 10-13 capsule by ity of capsule 00:00: 00:00 mouth in [place] 00 :00 the Medical morning. Branch atomoxetine 2021-07- No 40mg Take 1 [facility] vers 40 mg 0-07 10-13 capsule by ity of capsule 00:00: 00:00 mouth in [place] 00 :00 the Medical morning. [place] atomoxetine 2021-07- No 40mg Take 1 [facility] vers 40 mg 0-07 10-13 capsule by ity of capsule 00:00: 00:00 mouth in [place] 00 :00 the Medical morning. [place] atomoxetine 2021-07- No 40mg Take 1 [facility] vers 40 mg 0-07 10-13 capsule by ity of capsule 00:00: 00:00 mouth in [place] 00 :00 the Medical morning. [place] atomoxetine 2021-07- No 40mg Take 1 [facility] vers 40 mg 0-07 10-13 capsule by ity of capsule 00:00: 00:00 mouth in [place] 00 :00 the Medical morning. [place] traZODone 2021-07 Yes 50mg 50 mg, [facility] (DESYREL) 0-06 Oral, QHS, ity of tablet 50 02:00: First dose [place] mg 00 on Mon04/06/22 at [place] 2100, Until Discontinu ed, Routine acetaminoph 2021-07 Yes [id number] 1000mg Take 2 [facility] en 500 mg 0-06 tablets by ity of tablet 00:00: mouth [place] 00 every 8 Medical (eight) Branch hours as needed for Pain. traZODone 2021-07 Yes 50mg Take 1 [facility] s 50 mg 0-06 tablet by ity of tablet 00:00: mouth at [place] 00 bedtime. [facility] methocarbam 2021-07 Yes [id number] 500mg Take 1 [facility] oL 500 mg 0-06 tablet by ity o f tablet 00:00: mouth 4 [place] 00 (four) Medical times Branch daily as needed (muscle spasms). ibuprofen 2021-07 Yes [id number] 600mg Take 1 [facility] 600 mg 0-06 tablet by ity of tablet 00:00: mouth [place] 00 every 6 Medical (six) Branch hours as needed for Pain (scale 4-6). acetaminoph 2021-07 Yes [id number] 1000mg Take 2 [facility] en 500 mg 0-06 tablets by ity of tablet 00:00: mouth [place] 00 every 8 Medical (eight) Branch hours as needed for Pain. traZODone 2021-07 Yes 50mg Take 1 [facility] s 50 mg 0-06 tablet by ity of tablet 00:00: mouth at [place] 00 bedtime. Medical Branch methocarbam 2021-07 Yes [id number] 500mg Take 1 [facility] oL 500 mg 0-06 tablet by ity o f tablet 00:00: mouth 4 [place] 00 (four) Medical times Branch daily as needed (muscle spasms). ibuprofen 2021-07 Yes [id number] 600mg Take 1 [facility] 600 mg 0-06 tablet by ity of tablet 00:00: mouth [place] 00 every 6 Medical (six) Branch hours as needed for Pain (scale 4-6). acetaminoph 2021-07 Yes [id number] 1000mg Take 2 [facility] en 500 mg 0-06 tablets by ity of tablet 00:00: mouth [place] 00 every 8 Medical (eight) Branch hours as needed for Pain. traZODone 2021-07 Yes 50mg Take 1 [facility] 50 mg 0-06 tablet by ity of tablet 00:00: mouth at [place] 00 bedtime. Medical Branch methocarbam 2021-07 Yes [id number] 500mg Take 1 [facility] oL 500 mg 0-06 tablet by ity o f tablet 00:00: mouth (four) Medical times Branch daily as needed (muscle spasms). ibuprofen 2021-07 Yes [id number] 600mg Take 1 [facility] 600 mg 0-06 tablet by ity of tablet 00:00: mouth [place] 00 every 6 Medical (six) Branch hours as needed for Pain (scale 4-6). acetaminoph 2021-07 Yes [id number] 1000mg Take 2 [facility] en 500 mg 0-06 tablets by ity of tablet 00:00: mouth [place] 00 every 8 Medical (eight) Branch hours as needed for Pain. traZODone 2021-07 Yes 50mg Take 1 [facility] 50 mg 0-06 tablet by ity of tablet 00:00: mouth at [place] 00 bedtime. Medical Branch methocarbam 2021-07 Yes [id number] 500mg Take 1 [facility] oL 500 mg 0-06 tablet by ity o f tablet 00:00: mouth 4 00 (four) Medical times Branch daily as needed (muscle spasms). ibuprofen 2021-07 Yes [id number] 600mg Take 1 [facility] 600 mg 0-06 tablet by ity of tablet 00:00: mouth [place] 00 every 6 Medical (six) Branch hours as needed for Pain (scale 4-6). acetaminoph 2021-07 Yes [id number] 1000mg Take 2 [facility] en 500 mg 0-06 tablets by ity of tablet 00:00: mouth [place] 00 every 8 Medical (eight) Branch hours as needed for Pain. traZODone 2021-07 Yes 50mg Take 1 [facility] 50 mg 0-06 tablet by ity of tablet 00:00: mouth at [place] 00 bedtime. Medical Branch methocarbam 2021-07 Yes [id number] 500mg Take 1 [facility] oL 500 mg 0-06 tablet by ity o f tablet 00:00: mouth 00 (four) Medical times Branch daily as needed (muscle spasms). ibuprofen 2021-07 Yes [id number] 600mg Take 1 [facility] 600 mg 0-06 tablet by ity of tablet 00:00: mouth [place] 00 every 6 Medical (six) Branch hours as needed for Pain (scale 4-6). acetaminoph 2021-07 Yes [id number] 1000mg Take 2 [facility] en 500 mg 0-06 tablets by ity of tablet 00:00: mouth [place] 00 every 8 Medical (eight) Branch hours as needed for Pain. traZODone 2021-07 Yes 50mg Take 1 [facility] 50 mg 0-06 tablet by ity of tablet 00:00: mouth at [place] 00 bedtime. Medical Branch methocarbam 2021-07 Yes [id number] 500mg Take 1 [facility] oL 500 mg 0-06 tablet by ity o f tablet 00:00: mouth 4 00 (four) Medical times Branch daily as needed (muscle spasms). ibuprofen 2021-07 Yes [id number] 600mg Take 1 [facility] 600 mg 0-06 tablet by ity of tablet 00:00: mouth [place] 00 every 6 Medical (six) Branch hours as needed for Pain (scale 4-6). acetaminoph 2021-07 Yes [id number] 1000mg Take 2 [facility] en 500 mg 0-06 tablets by ity of tablet 00:00: mouth [place] 00 every 8 Medical (eight) Branch hours as needed for Pain. traZODone 2021-07 Yes 50mg Take 1 [facility] 50 mg 0-06 tablet by ity of tablet 00:00: mouth at [place] 00 bedtime. Medical Branch methocarbam 2021-07 Yes [id number] 500mg Take 1 [facility] oL 500 mg 0-06 tablet by ity o f tablet 00:00: mouth 4 (four) Medical times Branch daily as needed (muscle spasms). ibuprofen 2021-07 Yes [id number] 600mg Take 1 [facility] 600 mg 0-06 tablet by ity of tablet 00:00: mouth [place] 00 every 6 Medical (six) Branch hours as needed for Pain (scale 4-6). acetaminoph 2021-07 Yes [id number] 1000mg Take 2 [facility] en 500 mg 0-06 tablets by ity of tablet 00:00: mouth 00 every 8 Medical (eight) Branch hours as needed for Pain. traZODone 2021-07 Yes 50mg Take 1 [facility] 50 mg 0-06 tablet by ity of tablet 00:00: mouth at [place] 00 bedtime. Medical Branch methocarbam 2021-07 Yes [id number] 500mg Take 1 [facility] oL 500 mg 0-06 tablet by ity o f tablet 00:00: mouth (four) Medical times Branch daily as needed (muscle spasms). ibuprofen 2021-07 Yes [id number] 600mg Take 1 [facility] 600 mg 0-06 tablet by ity of tablet 00:00: mouth [place] 00 every 6 Medical (six) Branch hours as needed for Pain (scale 4-6). acetaminoph 2021-07 Yes [id number] 1000mg Take 2 [facility] en 500 mg 0-06 tablets by ity of tablet 00:00: mouth [place] 00 every 8 Medical (eight) Branch hours as needed for Pain. traZODone 2021-07 Yes 50mg Take 1 [facility] 50 mg 0-06 tablet by ity of tablet 00:00: mouth at [place] 00 bedtime. Medical Branch methocarbam 2021-07 Yes [id number] 500mg Take 1 [facility] oL 500 mg 0-06 tablet by ity o f tablet 00:00: mouth 4 00 (four) Medical times Branch daily as needed (muscle spasms). ibuprofen 2021-07 Yes [id number] 600mg Take 1 [facility] 600 mg 0-06 tablet by ity of tablet 00:00: mouth [place] 00 every 6 Medical (six) Branch hours as needed for Pain (scale 4-6). acetaminoph 2021-07 Yes [id number] 1000mg Take 2 [facility] en 500 mg 0-06 tablets by ity of tablet 00:00: mouth [place] 00 every 8 Medical (eight) Branch hours as needed for Pain. traZODone 2021-07 Yes 50mg Take 1 [facility] 50 mg 0-06 tablet by ity of tablet 00:00: mouth at [place] 00 bedtime. Medical Branch methocarbam 2021-07 Yes [id number] 500mg Take 1 [facility] oL 500 mg 0-06 tablet by ity o f tablet 00:00: mouth 4 00 (four) Medical times Branch daily as needed (muscle spasms). ibuprofen 2021-07 Yes [id number] 600mg Take 1 [facility] 600 mg 0-06 tablet by ity of tablet 00:00: mouth [place] 00 every 6 Medical (six) Branch hours as needed for Pain (scale 4-6). acetaminoph 2021-07 Yes [id number] 1000mg Take 2 [facility] en 500 mg 0-06 tablets by [facility] of tablet 00:00: mouth [place] 00 every 8 Medical (eight) Branch hours as needed for Pain. traZODone 2021-07 Yes 50mg Take 1 [facility] 50 mg 0-06 tablet by [facility] tablet 00:00: mouth at [place] 00 bedtime. Medical Branch methocarbam 2021-07 Yes [id number] 500mg Take 1 [facility] oL 500 mg 0-06 tablet by ity o f tablet 00:00: mouth 4 00 (four) Medical times Branch daily as needed (muscle spasms). ibuprofen 2021-07 Yes [id number] 600mg Take 1 [facility] 600 mg 0-06 tablet by [facility] of tablet 00:00: mouth [place] 00 every 6 Medical (six) Branch hours as needed for Pain (scale 4-6). acetaminoph 2021-07 Yes [id number] 1000mg Take 2 [facility] en 500 mg 0-06 tablets by [facility] of tablet 00:00: mouth [place] 00 every 8 Medical (eight) Branch hours as needed for Pain. traZODone 2021-07 Yes 50mg Take 1 [facility] 50 mg 0-06 tablet by [facility] of tablet 00:00: mouth at [place] 00 bedtime. Medical Branch methocarbam 2021-07 Yes [id number] 500mg Take 1 [facility] oL 500 mg 0-06 tablet by ity o f tablet 00:00: mouth 4 [place] 00 (four) Medical times Branch daily as needed (muscle spasms). ibuprofen 2021-07 Yes [id number] 600mg Take 1 [facility] 600 mg 0-06 tablet by [facility] of tablet 00:00: mouth [place] 00 every 6 Medical (six) Branch hours as needed for Pain (scale 4-6). acetaminoph 2021-07 Yes [id number] 1000mg Take 2 [facility] en 500 mg 0-06 tablets by [facility] of tablet 00:00: mouth [place] 00 every 8 Medical (eight) Branch hours as needed for Pain. traZODone 2021-07 Yes 50mg Take 1 [facility] 50 mg 0-06 tablet by [facility] of tablet 00:00: mouth at [place] 00 bedtime. Medical Branch methocarbam 2021-07 Yes [id number] 500mg Take 1 [facility] oL 500 mg 0-06 tablet by ity o f tablet 00:00: mouth 4 00 (four) Medical times Branch daily as needed (muscle spasms). ibuprofen 2021-07 Yes [id number] 600mg Take 1 [facility] 600 mg 0-06 tablet by [facility] of tablet 00:00: mouth [place] 00 every 6 Medical (six) Branch hours as needed for Pain (scale 4-6). acetaminoph 2021-07 Yes [id number] 1000mg Take 2 [facility] en 500 mg 0-06 tablets by [facility] of tablet 00:00: mouth [place] 00 every 8 Medical (eight) Branch hours as needed for Pain. traZODone 2021-07 Yes 50mg Take 1 [facility] 50 mg 0-06 tablet by [facility] of tablet 00:00: mouth at [place] 00 bedtime. Medical Branch methocarbam 2021-07 Yes [id number] 500mg Take 1 [facility] oL 500 mg 0-06 tablet by ity o f tablet 00:00: mouth 4 00 (four) Medical times Branch daily as needed (muscle spasms). ibuprofen 2021-07 Yes [id number] 600mg Take 1 [facility] 600 mg 0-06 tablet by [facility] of tablet 00:00: mouth [place] 00 every 6 Medical (six) Branch hours as needed for Pain (scale 4-6). acetaminoph 2021-07 Yes [id number] 1000mg Take 2 [facility] en 500 mg 0-06 tablets by [facility] of tablet 00:00: mouth [place] 00 every 8 Medical (eight) Branch hours as needed for Pain. traZODone 2021-07 Yes 50mg Take 1 [facility] 50 mg 0-06 tablet by [facility] of tablet 00:00: mouth at [place] 00 bedtime. Medical Branch methocarbam 2021-07 Yes [id number] 500mg Take 1 [facility] oL 500 mg 0-06 tablet by [facility]y o f tablet 00:00: mouth 4 (four) Medical times Branch daily as needed (muscle spasms). ibuprofen 2021-07 Yes [id number] 600mg Take 1 [facility] 600 mg 0-06 tablet by [facility] of tablet 00:00: mouth [place] 00 every 6 Medical (six) Branch hours as needed for Pain (scale 4-6). acetaminoph 2021-07 Yes [id number] 1000mg Take 2 [facility] en 500 mg 0-06 tablets by [facility] of tablet 00:00: mouth [place] 00 every 8 Medical (eight) Branch hours as needed for Pain. traZODone 2021-07 Yes 50mg Take 1 [facility] 50 mg 0-06 tablet by [facility] of tablet 00:00: mouth at [place] 00 bedtime. Medical Branch methocarbam 2021-07 Yes [id number] 500mg Take 1 [facility] oL 500 mg 0-06 tablet by [facility]y o f tablet 00:00: mouth (four) Medical times Branch daily as needed (muscle spasms). ibuprofen 2021-07 Yes [id number] 600mg Take 1 [facility] 600 mg 0-06 tablet by [facility] of tablet 00:00: mouth [place] 00 every 6 Medical (six) Branch hours as needed for Pain (scale 4-6). acetaminoph 2021-07 Yes [id number] 1000mg Take 2 [facility] en 500 mg 0-06 tablets by [facility] of tablet 00:00: mouth [place] 00 every 8 Medical (eight) Branch hours as needed for Pain. traZODone 2021-07 Yes 50mg Take 1 [facility] 50 mg 0-06 tablet by [facility] of tablet 00:00: mouth at [place] 00 bedtime. Medical Branch methocarbam 2021-07 Yes [id number] 500mg Take 1 [facility] oL 500 mg 0-06 tablet by ity o f tablet 00:00: mouth (four) Medical times Branch daily as needed (muscle spasms). ibuprofen 2021-07 Yes [id number] 600mg Take 1 [facility] 600 mg 0-06 tablet by [facility] of tablet 00:00: mouth [place] 00 every 6 Medical (six) Branch hours as needed for Pain (scale 4-6). acetaminoph 2021-07 Yes [id number] 1000mg Take 2 [facility] en 500 mg 0-06 tablets by [facility] of tablet 00:00: mouth [place] 00 every 8 Medical (eight) Branch hours as needed for Pain. traZODone 2021-07 Yes 50mg Take 1 [facility] 50 mg 0-06 tablet by [facility] of tablet 00:00: mouth at [place] 00 bedtime. Medical Branch methocarbam 2021-07 Yes [id number] 500mg Take 1 [facility] oL 500 mg 0-06 tablet by [facility]y o f tablet 00:00: mouth 4 [place] 00 (four) Medical times Branch daily as needed (muscle spasms). ibuprofen 2021-07 Yes [id number] 600mg Take 1 [facility] 600 mg 0-06 tablet by [facility] of tablet 00:00: mouth [place] 00 every 6 Medical (six) Branch hours as needed for Pain (scale 4-6). acetaminoph 2021-07 Yes [id number] 1000mg Take 2 [facility] 500 mg 0-06 tablets by [facility] of tablet 00:00: mouth [place] 00 every 8 Medical (eight) Branch hours as needed for Pain. traZODone 2021-07 Yes 50mg Take 1 [facility] 50 mg 0-06 tablet by [facility] of tablet 00:00: mouth at [place] 00 bedtime. Medical Branch methocarbam 2021-07 Yes [id number] 500mg Take 1 [facility] oL 500 mg 0-06 tablet by [facility] o f tablet 00:00: mouth 4 [place] 00 (four) Medical times Branch daily as needed (muscle spasms). ibuprofen 2021-07 Yes [id number] 600mg Take 1 [facility] 600 mg 0-06 tablet by [facility] of tablet 00:00: mouth [place] 00 every 6 Medical (six) Branch hours as needed for Pain (scale 4-6). acetaminoph 2021-07 Yes [id number] 1000mg Take 2 [facility] 500 mg 0-06 tablets by [facility] of tablet 00:00: mouth [place] 00 every 8 Medical (eight) Branch hours as needed for Pain. traZODone 2021-07 Yes 50mg Take 1 [facility] 50 mg 0-06 tablet by [facility] of tablet 00:00: mouth at [place] 00 bedtime. Medical Branch methocarbam 2021-07 Yes [id number] 500mg Take 1 [facility] oL 500 mg 0-06 tablet by [facility]y o f tablet 00:00: mouth 4 00 (four) Medical times Branch daily as needed (muscle spasms). ibuprofen 2021-07 Yes [id number] 600mg Take 1 [facility] 600 mg 0-06 tablet by [facility] of tablet 00:00: mouth [place] 00 every 6 Medical (six) Branch hours as needed for Pain (scale 4-6). acetaminoph 2021-07 Yes [id number] 1000mg Take 2 [facility] en 500 mg 0-06 tablets by [facility] of tablet 00:00: mouth [place] 00 every 8 Medical (eight) Branch hours as needed for Pain. traZODone 2021-07 Yes 50mg Take 1 [facility] 50 mg 0-06 tablet by [facility] of tablet 00:00: mouth at [place] 00 bedtime. Medical Branch methocarbam 2021-07 Yes [id number] 500mg Take 1 [facility] oL 500 mg 0-06 tablet by ity o f tablet 00:00: mouth 4 00 (four) Medical times Branch daily as needed (muscle spasms). ibuprofen 2021-07 Yes [id number] 600mg Take 1 [facility] 600 mg 0-06 tablet by [facility] of tablet 00:00: mouth [place] 00 every 6 Medical (six) Branch hours as needed for Pain (scale 4-6). acetaminoph 2021-07 Yes [id number] 1000mg Take 2 [facility] 500 mg 0-06 tablets by [facility] of tablet 00:00: mouth [place] 00 every 8 Medical (eight) Branch hours as needed for Pain. traZODone 2021-07 Yes 50mg Take 1 [facility] 50 mg 0-06 tablet by [facility] of tablet 00:00: mouth at [place] 00 bedtime. Medical Branch methocarbam 2021-07 Yes [id number] 500mg Take 1 [facility] oL 500 mg 0-06 tablet by [facility]y o f tablet 00:00: mouth 4 [place] 00 (four) Medical times Branch daily as needed (muscle spasms). ibuprofen 2021-07 Yes [id number] 600mg Take 1 [facility] 600 mg 0-06 tablet by [facility] of tablet 00:00: mouth [place] 00 every 6 Medical (six) Branch hours as needed for Pain (scale 4-6). acetaminoph 2021-07 Yes [id number] 1000mg Take 2 [facility] en 500 mg 0-06 tablets by [facility] of tablet 00:00: mouth [place] 00 every 8 Medical (eight) Branch hours as needed for Pain. traZODone 2021-07 Yes 50mg Take 1 [facility] 50 mg 0-06 tablet by [facility] of tablet 00:00: mouth at [place] 00 bedtime. Medical Branch methocarbam 2021-07 Yes [id number] 500mg Take 1 [facility] oL 500 mg 0-06 tablet by [facility]y o f tablet 00:00: mouth (four) Medical times Branch daily as needed (muscle spasms). ibuprofen 2021-07 Yes [id number] 600mg Take 1 [facility] 600 mg 0-06 tablet by [facility] of tablet 00:00: mouth [place] 00 every 6 Medical (six) Branch hours as needed for Pain (scale 4-6). acetaminoph 2021-07 Yes [id number] 1000mg Take 2 [facility] en 500 mg 0-06 tablets by [facility] of tablet 00:00: mouth [place] 00 every 8 Medical (eight) Branch hours as needed for Pain. traZODone 2021-07 Yes 50mg Take 1 [facility] 50 mg 0-06 tablet by [facility] of tablet 00:00: mouth at [place] 00 bedtime. Medical Branch methocarbam 2021-07 Yes [id number] 500mg Take 1 [facility] oL 500 mg 0-06 tablet by [facility]y o f tablet 00:00: mouth (four) Medical times Branch daily as needed (muscle spasms). ibuprofen 2021-07 Yes [id number] 600mg Take 1 [facility] 600 mg 0-06 tablet by [facility] of tablet 00:00: mouth [place] 00 every 6 Medical (six) Branch hours as needed for Pain (scale 4-6). acetaminoph 2021-07 Yes [id number] 1000mg Take 2 [facility] 500 mg 0-06 tablets by [facility] of tablet 00:00: mouth [place] 00 every 8 Medical (eight) Branch hours as needed for Pain. traZODone 2021-07 Yes 50mg Take 1 [facility] 50 mg 0-06 tablet by [facility] of tablet 00:00: mouth at [place] 00 bedtime. Medical Branch methocarbam 2021-07 Yes [id number] 500mg Take 1 [facility] oL 500 mg 0-06 tablet by [facility] o f tablet 00:00: mouth (four) Medical times Branch daily as needed (muscle spasms). ibuprofen 2021-07 Yes [id number] 600mg Take 1 [facility] 600 mg 0-06 tablet by [facility] of tablet 00:00: mouth [place] 00 every 6 Medical (six) Branch hours as needed for Pain (scale 4-6). acetaminoph 2021-07 Yes [id number] 1000mg Take 2 [facility] en 500 mg 0-06 tablets by [facility] of tablet 00:00: mouth [place] 00 every 8 Medical (eight) Branch hours as needed for Pain. traZODone 2021-07 Yes 50mg Take 1 [facility] 50 mg 0-06 tablet by [facility] of tablet 00:00: mouth at [place] 00 bedtime. Medical Branch methocarbam 2021-07 Yes [id number] 500mg Take 1 [facility] oL 500 mg 0-06 tablet by [facility]y o f tablet 00:00: mouth (four) Medical times Branch daily as needed (muscle spasms). ibuprofen 2021-07 Yes [id number] 600mg Take 1 [facility] 600 mg 0-06 tablet by [facility] of tablet 00:00: mouth [place] 00 every 6 Medical (six) Branch hours as needed for Pain (scale 4-6). acetaminoph 2021-07 Yes [id number] 1000mg Take 2 [facility] en 500 mg 0-06 tablets by [facility] of tablet 00:00: mouth 00 every 8 Medical (eight) Branch hours as needed for Pain. traZODone 2021-07 Yes 50mg Take 1 [facility] 50 mg 0-06 tablet by [facility] of tablet 00:00: mouth at [place] 00 bedtime. Medical Branch methocarbam 2021-07 Yes [id number] 500mg Take 1 [facility] oL 500 mg 0-06 tablet by ity o f tablet 00:00: mouth (four) Medical times Branch daily as needed (muscle spasms). ibuprofen 2021-07 Yes [id number] 600mg Take 1 [facility] 600 mg 0-06 tablet by [facility] of tablet 00:00: mouth [place] 00 every 6 Medical (six) Branch hours as needed for Pain (scale 4-6). acetaminoph 2021-07 Yes [id number] 1000mg Take 2 [facility] en 500 mg 0-06 tablets by [facility] of tablet 00:00: mouth [place] 00 every 8 Medical (eight) Branch hours as needed for Pain. traZODone 2021-07 Yes 50mg Take 1 [facility] 50 mg 0-06 tablet by [facility] of tablet 00:00: mouth at [place] 00 bedtime. Medical Branch methocarbam 2021-07 Yes [id number] 500mg Take 1 [facility] oL 500 mg 0-06 tablet by ity o f tablet 00:00: mouth 4 [place] 00 (four) Medical times Branch daily as needed (muscle spasms). ibuprofen 2021-07 Yes [id number] 600mg Take 1 [facility] 600 mg 0-06 tablet by [facility] of tablet 00:00: mouth [place] 00 every 6 Medical (six) Branch hours as needed for Pain (scale 4-6). acetaminoph 2021-07 Yes [id number] 1000mg Take 2 [facility] en 500 mg 0-06 tablets by [facility] of tablet 00:00: mouth [place] 00 every 8 Medical (eight) Branch hours as needed for Pain. traZODone 2021-07 Yes 50mg Take 1 [facility] 50 mg 0-06 tablet by [facility] of tablet 00:00: mouth at [place] 00 bedtime. Medical Branch methocarbam 2021-07 Yes [id number] 500mg Take 1 [facility] oL 500 mg 0-06 tablet by ity o f tablet 00:00: mouth 4 [place] 00 (four) Medical times Branch daily as needed (muscle spasms). ibuprofen 2021-07 Yes [id number] 600mg Take 1 [facility] 600 mg 0-06 tablet by [facility] of tablet 00:00: mouth [place] 00 every 6 Medical (six) Branch hours as needed for Pain (scale 4-6). acetaminoph 2021-07- No [id number] 1000mg Take 2 [facility] en 500 mg 0-06 11-29 tablets by ity of tablet 00:00: 00:00 mouth [place] 00 :00 every 8 Medical (eight) Branch hours as needed for Pain. traZODone 2021-07 No 50mg Take 1 [facility] 50 mg 0-06 11-29 tablet by ity of tablet 00:00: 00:00 mouth at [place] 00 :00 bedtime. Medical Branch methocarbam 2021-07- No [id number] 500mg Take 1 [facility] oL 500 mg 0-12 11-29 tablet by ity of tablet 00:00: 00:00 mouth 4 [place] 00 :00 (four) Medical times Branch daily as needed (muscle spasms). ibuprofen 2021-07- No [id number] 600mg Take 1 [facility] 600 mg 0-06 11-29 tablet by ity of tablet 00:00: 00:00 mouth [place] 00 :00 every 6 Medical (six) Branch hours as needed for Pain (scale 4-6). acetaminoph 2021-07- No [id number] 1000mg Take 2 [facility] en 500 mg 0-06 -29 tablets by ity of tablet 00:00: 00:00 mouth [place] 00 :00 every 8 Medical (eight) Branch hours as needed for Pain. traZODone 2021-07- No 50mg Take 1 [facility] 50 mg 0-12 11-29 tablet by ity of tablet 00:00: 00:00 mouth at [place] 00 :00 bedtime. Medical Branch methocarbam 2021-07- No [id number] 500mg Take 1 [facility] oL 500 mg 0-12 11-29 tablet by ity of tablet 00:00: 00:00 mouth 4 [place] 00 :00 (four) Medical times Branch daily as needed (muscle spasms). ibuprofen 2021-07- No [id number] 600mg Take 1 [facility] 600 mg 0-12 11-29 tablet by ity of tablet 00:00: 00:00 mouth [place] 00 :00 every 6 Medical (six) Branch hours as needed for Pain (scale 4-6). acetaminoph 2021-07- No [id number] 1000mg Take 2 [facility] en 500 mg 0-06 -29 tablets by ity of tablet 00:00: 00:00 mouth [place] 00 :00 every 8 Medical (eight) Branch hours as needed for Pain. traZODone 2021-07- No 50mg Take 1 [facility] 50 mg 0-06 11-29 tablet by it[facility] of tablet 00:00: 00:00 mouth at [place] 00 :00 bedtime. Medical Branch methocarbam 2021-07- No [id number] 500mg Take 1 [facility] oL 500 mg 0-06 11-29 tablet by ity of tablet 00:00: 00:00 mouth 4 [place] 00 :00 (four) Medical times Branch daily as needed (muscle spasms). ibuprofen 2021-07- No [id number] 600mg Take 1 [facility] 600 mg 0-12 11-29 tablet by ity of tablet 00:00: 00:00 mouth [place] 00 :00 every 6 Medical (six) Branch hours as needed for Pain (scale 4-6). acetaminoph 2021-07- No [id number] 1000mg Take 2 [facility] en 500 mg 0-12 11-29 tablets by ity of tablet 00:00: 00:00 mouth [place] 00 :00 every 8 Medical (eight) Branch hours as needed for Pain. traZODone 2021-07- No 50mg Take 1 [facility] 50 mg 0-05-31 tablet by ity of tablet 00:00: 00:00 mouth at [place] 00 :00 bedtime. Medical Branch methocarbam 2021-07- No [id number] 500mg Take 1 [facility] oL 500 mg 0-05-31 tablet by ity of tablet 00:00: 00:00 mouth 4 [place] 00 :00 (four) Medical times Branch daily as needed (muscle spasms). ibuprofen 2021-07- No [id number] 600mg Take 1 [facility] 600 mg 0-05-31 tablet by ity of tablet 00:00: 00:00 mouth [place] 00 :00 every 6 Medical (six) Branch hours as needed for Pain (scale 4-6). acetaminoph 2021-07- No [id number] 1000mg Take 2 [facility] en 500 mg 0-05-31 tablets by ity of tablet 00:00: 00:00 mouth [place] 00 :00 every 8 Medical (eight) Branch hours as needed for Pain. traZODone 2021-07- No 50mg Take 1 [facility] 50 mg 0-12 11- tablet by ity of tablet 00:00: 00:00 mouth at [place] 00 :00 bedtime. Medical Branch methocarbam 2021-07- No [id number] 500mg Take 1 [facility] oL 500 mg 0-12 11- tablet by ity of tablet 00:00: 00:00 mouth 4 [place] 00 :00 (four) Medical times Branch daily as needed (muscle spasms). ibuprofen 2021-07 No [id number] 600mg Take 1 [facility] 600 mg 005-31 tablet by ity of tablet 00:00: 00:00 mouth [place] 00 :00 every 6 Medical (six) Branch hours as needed for Pain (scale 4-6). acetaminoph 2021-07 No [id number] 1000mg Take 2 [facility] en 500 mg 005-31 tablets by ity of tablet 00:00: 00:00 mouth [place] 00 :00 every 8 Medical (eight) Branch hours as needed for Pain. traZODone 2021-07- No 50mg Take 1 [facility] rs 50 mg 005-31 tablet by ity of tablet 00:00: 00:00 mouth at [place] 00 :00 bedtime. Medical Branch methocarbam 2021-07- No [id number] 500mg Take 1 [facility] oL 500 mg 005-31 tablet by ity of tablet 00:00: 00:00 mouth 4 [place] 00 :00 (four) Medical times Branch daily as needed (muscle spasms). ibuprofen 2021-07 No [id number] 600mg Take 1 [facility] 600 mg 005-31 tablet by ity of tablet 00:00: 00:00 mouth [place] 00 :00 every 6 Medical (six) Branch hours as needed for Pain (scale 4-6). atomoxetine 2021-07 Yes 40mg 40 mg, Univ ers (STRATTERA) 0-05 Oral, ity of capsule 40 16:45: DAILY, [place] mg 00 First dose Medical on Mon Branch 04/06/22 at 1145, Until Discontinu ed, Routine
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 Restricted medication : KEAGAN LUO celecoxib 2021-07 Yes 100mg 100 mg, Univ ers (CELEBREX) 0-05 Oral, BID it[facility] of capsule 100 15:15: MEALS, [place] mg 00 First dose Medical on Mon [place] 04/06/22 at 1015, Until Discontinu ed, Routine acetaminoph 2021-07 Yes 1000mg 1,000 mg, [facility] en 0-05 Oral, Q8H, ity of (TYLENOL) 15:15: First dose [place] tablet 00 on Mon Medical 1,000 mg 04/06/22 at [facility] h 1015, Until Discontinu ed, Routine tamsulosin 2021-07 Yes .4mg 0.4 mg, Univ ers (FLOMAX) 0-05 Oral, ity of capsule 0.4 14:00: DAILY, [place] 00 First dose Medical on Mon [place] 04/06/22 at 0900, Until Discontinu ed, Routine methocarbam 2021-07 Yes 1000mg 1,000 mg, [facility] oL 0-05 Oral, QID, ity of (ROBAXIN) 13:00: First dose [place] tablet 00 on Mon Medical 1,000 mg 04/06/22 at [facility] h 0800, Until Discontinu ed, Routine enoxaparin 2021-07 Yes 30mg 30 mg, Unive rs (LOVENOX) 0-05 Subcutaneo ity of injection 01:00: us, Q12H, [place] 30 mg 00 First dose Medical on Mon [place] 04/05/22 at 2000, Until Discontinu ed, Routine methocarbam 2021-07 No 1000mg 1,000 mg, [facility] oL 0-04 10-05 Intravenou ity of (ROBAXIN) 19:00: 11:05 s, Q8H, [place] injection 00 :13 First dose Medi [place] 1,000 mg on Mon [place] 04/05/22 at 1400, Until Discontinu ed, Routine [...] 17 g 00 First dose Medical on [place] 04/05/22 at 0915, Until Discontinu ed, Routine ibuprofen 2021-07 No 600mg 600 mg, Uni vers (IBU) 0-04 10-04 Oral, TID ity of tablet 600 13:00: 14:14 [place]ALS, [place] mg [place] :08 First dose Medical on [place] 04/05/22 at 0800, Until Discontinu ed, Routine [...] [place] tablet 500 00 :36 on [facility] Medical mg 04/04/22 at Branch 2000, Until Discontinu ed, Routine morpHINE (2 2021-07 No 2mg 2 mg, Slow [facility] mg/mL) 0-03 10-04 IV Push, ity of injection 2 23:22: 14:14 Q4HPRN, [place] mg 51 :08 Starting Medical on [facility] 04/04/22 at 1822, Until Mon04/05/22 at 0914, Routine, Pain (scale 7-10) HYDROcodone 2021-07 1{tbl} 1 tablet, Univers -acetaminop 0-03 10-04 Oral, ity of hen (NORCO 23:22: 14:14 Q6HPRN, [place] 5) 5-325 mg 51 :08 Starting Medi [place] tablet 1 on Mon tablet 04/04/22 at 1822, Until Mon04/05/22 at 0914, Routine, Pain (scale 4-6) FENTanyl PF 2021-07 No 50ug 50 mcg, Un [place] (SUBLIMAZE 0-03 10-03 Slow IV ity o f (PF)) 22:00: 21:05 Push, [place] injection 00 :00 ONCE, 1 Medical 50 mcg dose, On Branch Mon04/04/22 at 1700, Routine FENTanyl PF 2021-07- No 50ug 50 mcg, Un [place] (SUBLIMAZE 0-03 10-03 Slow IV ity o f (PF)) 20:30: 19:32 Push, [place] injection 00 :00 ONCE, 1 Medical 50 mcg dose, On Branch Mon04/04/22 at 1530, Routine ondansetron 2021-07 No 4mg 4 mg, Slow [facility] (ZOFRAN 0-03 10-03 IV Push, ity of (PF)) 19:45: 19:32 ONCE, 1 [place] injection 4 00 :00 dose, On Medi torito mg Mon04/04/22 at 1445, ARLEN iopamidol 2021-07- No [id number] 80mL 80 mL, Univers (ISOVUE 0-03 10-03 Intravenou ity o f 370-500 mL) 19:00: 18:49 s, ONCE, 1 [place] injection 00 :00 dose, On Medica l 80 mL [facility] 04/04/22 at 1400, Routine NaCl 0.9% 1000mL at 999 Uni vers (NS) bolus 04-01 09-30 mL/hr, ity of infusion 05:15: 06:27 1,000 mL, [place] 1,000 mL 00 :00 IV Medical Infusion, Branch ONCE, 1 dose, On Mon04/01/22 at 0015, STAT ondansetron 2021-0 2021- No 4mg 4 mg, Slow [facility] (ZOFRAN 04-0130 IV Push, ity of (PF)) 04:15: 04:36 ONCE, 1 [place] injection 4 00 :00 dose, On Medi torito mg Ronel Michael 03/31/22 at 2315, ARLEN ARIPiprazol 2021-0 Yes [id number] 300mg 300 mg by Univers e (ABILIFY 9-15 Intramuscu ity of MAINTENA) 00:00: lar route [place] 300 mg sers 00 once every Me dical month. Branch ARIPiprazol 2021-0 Yes 300mg 300 mg by Univers e (ABILIFY 9-15 Intramuscu ity of MAINTENA) 00:00: lar route [place] 300 mg sers 00 once every Me dical month. Branch ARIPiprazol 2021-0 Yes [id number] 300mg 300 mg by Univers e (ABILIFY 9-15 Intramuscu ity of MAINTENA) 00:00: lar route [place] 300 mg sers 00 once every Me dical month. Branch ARIPiprazol 2021-0 Yes 300mg 300 mg by Univers e (ABILIFY 9-15 Intramuscu ity of MAINTENA) 00:00: lar route [place] 300 mg sers 00 once every Me dical month. Branch ARIPiprazol 2021-0 Yes [id number] 300mg 300 mg by Univers e (ABILIFY 9-15 Intramuscu ity of MAINTENA) 00:00: lar route [place] 300 mg sers 00 once every Me dical month. Branch ARIPiprazol 2021-0 Yes 300mg 300 mg by Univers e (ABILIFY 9-15 Intramuscu ity of MAINTENA) 00:00: lar route [place] 300 mg sers 00 once every Me dical month. Branch ARIPiprazol 2021-0 Yes [id number] 300mg 300 mg by Univers e (ABILIFY 9-15 Intramuscu ity of MAINTENA) 00:00: lar route [place] 300 mg sers 00 once every Me dical month. Branch ARIPiprazol 2021-0 Yes 300mg 300 mg by Univers e (ABILIFY 9-15 Intramuscu ity of MAINTENA) 00:00: lar route [place] 300 mg sers 00 once every Me dical month. Branch ARIPiprazol 2022-0 Yes [id number] 300mg 300 mg by Univers e (ABILIFY 9-15 Intramuscu ity of MAINTENA) 00:00: lar route [place] 300 mg sers 00 once every Me dical month. Branch ARIPiprazol 2-0 Yes 300mg 300 mg by Univers e (ABILIFY 9-15 Intramuscu ity of MAINTENA) 00:00: lar route [place] 300 mg sers 00 once every Me dical month. Branch ARIPiprazol 2-0 Yes [id number] 300mg 300 mg by Univers e (ABILIFY 9-15 Intramuscu ity of MAINTENA) 00:00: lar route [place] 300 mg sers 00 once every Me dical month. Branch ARIPiprazol 2-0 Yes 300mg 300 mg by Univers e (ABILIFY 9-15 Intramuscu ity of MAINTENA) 00:00: lar route [place] 300 mg sers 00 once every Me dical month. Branch ARIPiprazol 2-0 Yes [id number] 300mg 300 mg by Univers e (ABILIFY 9-15 Intramuscu ity of MAINTENA) 00:00: lar route [place] 300 mg sers 00 once every Me dical month. Branch ARIPiprazol 2-0 Yes 300mg 300 mg by Univers e (ABILIFY 9-15 Intramuscu ity of MAINTENA) 00:00: lar route [place] 300 mg sers 00 once every Me dical month. Branch ARIPiprazol 2022-0 Yes [id number] 300mg 300 mg by Univers e (ABILIFY 9-15 Intramuscu ity of MAINTENA) 00:00: lar route [place] 300 mg sers 00 once every Me dical month. Branch ARIPiprazol 2022-0 Yes [id number] 300mg 300 mg by Univers e (ABILIFY 9-15 Intramuscu ity of MAINTENA) 00:00: lar route [place] 300 mg sers 00 once every Me dical month. Branch ARIPiprazol 2022-0 Yes [id number] 300mg 300 mg by Univers e (ABILIFY 9-15 Intramuscu ity of MAINTENA) 00:00: lar route [place] 300 mg sers 00 once every Me dical month. Branch ARIPiprazol 2021-0 Yes [id number] 300mg 300 mg by Univers e (ABILIFY 9-15 [facility] 00:00: lar route [place] 300 mg sers 00 once every Me dical month. Branch ARIPiprazol 2021-0 Yes [id number] 300mg 300 mg by Univers e (ABILIFY 9-15 [facility]cu [facility] 00:00: lar route [place] 300 mg sers 00 once every Me dical month. Branch ARIPiprazol 2021-0 Yes [id number] 300mg 300 mg by [facility] e (ABILIFY 9-15 [facility] 00:00: lar route [place] 300 mg sers 00 once every Me dical month. Branch ARIPiprazol 2021-2021- No 300mg 300 mg by Univers e (ABILIFY 915 - [facility] y of [facility]) 00:00: 00:00 lar route [place] 300 mg sers 00 :00 once every Me dical month. Branch ARIPiprazol 2021-0 2021- No 300mg 300 mg by Univers e (ABILIFY 915 - [facility] of [facility]) 00:00: 00:00 lar route [place] 300 mg sers 00 :00 once every Me dical month. Branch ARIPiprazol 2021-0 2- No 300mg 300 mg by Univers e (ABILIFY 915 10- [facility] of [facility]) 00:00: 00:00 lar route [place] 300 mg sers 00 :00 once every Me dical month. Branch ARIPiprazol 2021-0 2- No 300mg 300 mg by Univers e (ABILIFY 915 10- [facility]cu [facility] y of [facility]) 00:00: 00:00 [...] once every Me dical month. Branch ARIPiprazol 2021-2021- No 300mg 300 mg by Univers e (ABILIFY 03-17 Intr[facility]cu it y of [facility]) 00:00: 00:00 [place] route [place] 300 mg sers 00 :00 once every Me dical month. Branch ARIPiprazol 2021-2021- No 300mg 300 mg by Univers e (ABILIFY 03-17 [facility] y of [facility]) 00:00: 00:00 lar route [place] 300 mg sers 00 :00 once every Me dical month. Branch ARIPiprazol 2021-2021- No 300mg 300 mg by Univers e (ABILIFY 03-17 [facility]cu [facility] y of [facility]) 00:00: 00:00 lar route [place] 300 mg sers 00 :00 once every Me dical month. Branch ARIPiprazol 2021-2021- No 300mg 300 mg by [facility] e (ABILIFY 03-17 [facility] of [facility]) 00:00: 00:00 lar route [place] 300 mg sers 00 :00 once every Me dical month. Branch ARIPiprazol 2021-2021- No 300mg 300 mg by [facility] e (ABILIFY 03-17 [facility] y of [facility]) 00:00: 00:00 lar route [place] 300 mg sers 00 :00 once every Me dical month. Branch ARIPiprazol 2021-0 2021- No 300mg 300 mg by [facility] e (ABILIFY 03-17 [facility] y of [facility]) 00:00: 00:00 lar route [place] 300 mg sers 00 :00 once every Me dical month. Branch ARIPiprazol 2021-0 2021- No [id number] 10mg Take 1 U nivers e 10 mg 03-10 tablet by ity of tablet 00:00: 04:59 mouth in [place] 00 :00 the Medical morning Branch for 30 days. ARIPiprazol 2021-0 2- No [id number] 10mg Take 1 U nivers e 10 mg 9-08 10-09 tablet by ity of tablet 00:00: 04:59 mouth in [place] 00 :00 the [facility] morning Branch for 30 days. ARIPiprazol 2021- No [id number] 10mg Take 1 U nivers e 10 mg 9-08 10-09 tablet by ity of tablet 00:00: 04:59 mouth in [place] 00 :00 the [facility] morning Branch for 30 days. ARIPiprazol 2021- No [id number] 10mg Take 1 U nivers e 10 mg 9-08 10-09 tablet by ity of tablet 00:00: 04:59 mouth in [place] 00 :00 the [facility] morning Branch for 30 days. ARIPiprazol 2021- No [id number] 10mg Take 1 U nivers e 10 mg 9-08 10-09 tablet by ity of tablet 00:00: 04:59 mouth in [place] 00 :00 the [facility] morning Branch for 30 days. ARIPiprazol 2021- No [id number] 10mg Take 1 U nivers e 10 mg 9-08 10-09 tablet by ity of tablet 00:00: 04:59 mouth in [place] 00 :00 the [facility] morning [place] for 30 days. ARIPiprazol 2021- No [id number] 10mg Take 1 U nivers e 10 mg 9-08 10-09 tablet by ity of tablet 00:00: 04:59 mouth in [place] 00 :00 the [facility] morning Branch for 30 days. ARIPiprazol 2021- No [id number] 10mg Take 1 U nivers e 10 mg 9-08 10-09 tablet by ity of tablet 00:00: 04:59 mouth in [place] 00 :00 the [facility] morning [place] for 30 days. ARIPiprazol 2021-2021- No [id number] 10mg Take 1 U nivers e 10 mg 9-08 10-09 tablet by ity of tablet 00:00: 04:59 mouth in [place] 00 :00 the [facility] morning Branch for 30 days. ARIPiprazol 2021-2021- No [id number] 10mg Take 1 U nivers e 10 mg 9-08 10-09 tablet by ity of tablet 00:00: 04:59 mouth in [place] 00 :00 [facility] for 30 days. ARIPiprazol 2021-2- No [id number] 10mg Take 1 U nivers e 10 mg 9-08 10-09 tablet by ity of tablet 00:00: 04:59 mouth in [place] 00 :00 the [facility] for 30 days. ARIPiprazol 2021-0 2- No [id number] 10mg Take 1 U nivers e 10 mg 9-08 10-09 tablet by ity of tablet 00:00: 04:59 mouth in [place] 00 :00 [facility] for 30 days. ARIPiprazol 2021-0 2- No [id number] 10mg Take 1 U nivers e 10 mg 9-08 10-09 tablet by ity of tablet 00:00: 04:59 mouth in [place] 00 :00 [facility] for 30 days. ARIPiprazol 2021-0 2- No [id number] 10mg Take 1 U nivers e 10 mg 9-08 10-09 tablet by ity of tablet 00:00: 04:59 mouth in [place] 00 :00 [facility] for 30 days. ARIPiprazol 2021-0 2- No [id number] 10mg Take 1 U nivers e 10 mg 9-08 10-09 tablet by ity of tablet 00:00: 04:59 mouth in [place] 00 :00 [facility] for 30 days. ARIPiprazol 2021-2- No [id number] 10mg Take 1 U nivers e 10 mg 9-08 10-09 tablet by ity of tablet 00:00: 04:59 mouth in [place] 00 :00 [facility] for 30 days. ARIPiprazol 2021-0 2- No [id number] 10mg Take 1 U nivers e 10 mg 9-08 10-09 tablet by ity of tablet 00:00: 04:59 mouth in [place] 00 :00 [facility] for 30 days. ARIPiprazol 2021-0 2- No [id number] 10mg Take 1 U nivers e 10 mg 9-08 10-09 tablet by ity of tablet 00:00: 04:59 mouth in [place] 00 :00 [facility] for 30 days. ARIPiprazol 2- No [id number] 10mg Take 1 U nivers e 10 mg 9-08 10-09 tablet by ity of tablet 00:00: 04:59 mouth in [place] 00 :00 the [facility] for 30 days. ARIPiprazol 2021- No [id number] 10mg Take 1 U nivers e 10 mg 9-08 10-09 tablet by ity of tablet 00:00: 04:59 mouth in [place] 00 :00 the [facility] for 30 days. ARIPiprazol 2021- No [id number] 10mg Take 1 U nivers e 10 mg 9-08 10-09 tablet by ity of tablet 00:00: 04:59 mouth in [place] 00 :00 the [facility] for 30 days. ARIPiprazol 2021- No [id number] 10mg Take 1 U nivers e 10 mg 9-08 10-09 tablet by ity of tablet 00:00: 04:59 mouth in [place] 00 :00 the [facility] for 30 days. ARIPiprazol 2021- No [id number] 10mg Take 1 U nivers e 10 mg 9-08 10-09 tablet by ity of tablet 00:00: 04:59 mouth in [place] 00 :00 the [facility] for 30 days. ARIPiprazol 2021- No [id number] 10mg Take 1 U nivers e 10 mg 9-08 10-09 tablet by ity of tablet 00:00: 04:59 mouth in [place] 00 :00 the [facility] for 30 days. ARIPiprazol 2021- No [id number] 10mg Take 1 U nivers e 10 mg 9-08 10-09 tablet by ity of tablet 00:00: 04:59 mouth in [place] 00 :00 the [facility] for 30 days. ARIPiprazol 2021-2021- No [id number] 10mg Take 1 U nivers e 10 mg 9-08 10-09 tablet by ity of tablet 00:00: 04:59 mouth in [place] 00 :00 the [facility] for 30 days. ARIPiprazol 2021-2021- No [id number] 10mg Take 1 U nivers e 10 mg 9-08 10-09 tablet by ity of tablet 00:00: 04:59 mouth in [place] 00 :00 the Medical morning Branch for 30 days. ARIPiprazol 2021-2021- No [id number] 10mg Take 1 U nivers e 10 mg 03-10 tablet by ity of tablet 00:00: 04:59 mouth in [place] 00 :00 the Medical morning Branch for 30 days. ARIPiprazol 2021-2021- No [id number] 300mg 300 mg by [facility] e (ABILIFY 03-09 [facility] of [facility]) 00:00: 05:59 lar route [place] 300 mg sers 00 :00 once every Me dical month for Branch 90 days. ARIPiprazol 2021-2021- No [id number] 300mg 300 mg by [facility] e (ABILIFY 03-09 [facility] of [facility]) 00:00: 00:00 lar route [place] 300 mg sers 00 :00 once every Me dical month for Branch 90 days. ARIPiprazol 2021-2021- No [id number] 300mg 300 mg by [facility] e (ABILIFY 03-09 [facility] it y of [facility]) 00:00: 00:00 lar route [place] 300 mg sers 00 :00 once every Me dical month for Branch 90 days. ARIPiprazol 2021-2021- No [id number] 300mg 300 mg by [facility] e (ABILIFY 03-09 [facility] y of [facility]) 00:00: 00:00 lar route [place] 300 mg sers 00 :00 once every Me dical month for Branch 90 days. ARIPiprazol 2021-2021- No [id number] 300mg 300 mg by [facility] e (ABILIFY 03-09 Intr[facility] it y of [facility]) 00:00: 00:00 lar route [place] 300 mg sers 00 :00 once every Me dical month for Branch 90 days. ARIPiprazol 2021-2021- No [id number] 300mg 300 mg by Univers e (ABILIFY 03-09 [facility] y of [facility]) 00:00: 00:00 lar route [place] 300 mg sers 00 :00 once every [facility] month for Branch 90 days. QUEtiapine 2021- No [id number] 50mg Take 1 Un [place] 50 mg 7-18 09-08 tablet by ity of tablet 00:00: 00:00 mouth in [place] 00 :00 the Medical morning Branch and 1 tablet in the evening. Do all this for 60 days. QUEtiapine 2021- No [id number] 50mg Take 1 Un [place] 50 mg 7-18 -08 tablet by ity of tablet 00:00: 00:00 mouth in [place] 00 :00 the Medical morning Branch and 1 tablet in the evening. Do all this for 60 days. QUEtiapine 2021- No [id number] 50mg Take 1 Un [place] 50 mg 7-18 -08 tablet by ity of tablet 00:00: 00:00 mouth in [place] 00 :00 the Medical morning Branch and 1 tablet in the evening. Do all this for 60 days. QUEtiapine 2021- No [id number] 50mg Take 1 Un [place] 50 mg 718 -08 tablet by ity of tablet 00:00: 00:00 mouth in [place] 00 :00 the Medical morning Branch and 1 tablet in the evening. Do all this for 60 days. QUEtiapine No [id number] 50mg Take 1 Un [place] 50 mg 18 -08 tablet by ity of tablet 00:00: 00:00 mouth in [place] 00 :00 the Medical morning [place] and 1 tablet in the evening. Do all this for 60 days. lithium 2021- No [id number] 300mg Take 1 U nivers [place] 12-07 tablet by ity of CR 300 mg 00:00: 04:59 mouth at [facility] [facility] as SR tablet 00 :00 bedtime Medical for 90 Branch days. lithium No [id number] 450mg Take 1 U nivers carbonate 12-07 tablet by ity of CR 450 mg 00:00: 04:59 mouth [place] SR tablet 00 :00 every Medical morning Branch for 90 days. lithium No [id number] 300mg Take 1 U nivers carbonate 12-07 tablet by ity of CR 300 mg 00:00: 04:59 mouth at [place] as SR tablet 00 :00 bedtime Medical for 90 Branch days. lithium No [id number] 450mg Take 1 U nivers carbonate 12-07 tablet by ity of CR 450 mg 00:00: 04:59 mouth [place] SR tablet 00 :00 every Medical morning Branch for 90 days. lithium No [id number] 300mg Take 1 U nivers carbonate 12-07 tablet by ity of CR 300 mg 00:00: 04:59 mouth at [place] as SR tablet 00 :00 bedtime Medical for 90 Branch days. lithium No [id number] 450mg Take 1 U nivers carbonate 12-07- tablet by ity of CR 450 mg 00:00: 04:59 mouth [place] SR tablet 00 :00 every Medical morning Branch for 90 days. lithium No [id number] 300mg Take 1 U nivers carbonate 12-07 tablet by ity of CR 300 mg 00:00: 04:59 mouth at [place] as SR tablet 00 :00 bedtime Medical for 90 Branch days. lithium No [id number] 450mg Take 1 U nivers carbonate 12-07 tablet by ity of CR 450 mg 00:00: 04:59 mouth [place] SR tablet 00 :00 every Medical morning Branch for 90 days. lithium No [id number] 300mg Take 1 U nivers carbonate 12-07 tablet by ity of CR 300 mg 00:00: 04:59 mouth at [place] as SR tablet 00 :00 bedtime Medical for 90 Branch days. lithium No [id number] 450mg Take 1 U nivers carbonate 12-07- tablet by ity of CR 450 mg 00:00: 04:59 mouth [place] SR tablet 00 :00 every Medical morning Branch for 90 days. miSOPROStoL Yes [id number] 200ug Take 1 Univers 200 mcg 4-29 tablet by ity of tablet 00:00: mouth [place] 00 SEE-INSTRU Medical CTIONS. Branch Take one tab the night before and one tab the morning of procedure miSOPROStoL Yes [id number] 200ug Take 1 Univers 200 mcg 4-29 tablet by ity of tablet 00:00: mouth SEE-INSTRU Medical CTIONS. Branch Take one tab the night before and one tab the morning of procedure miSOPROStoL 2021-0 Yes [id number] 200ug Take 1 Univers 200 mcg 4-29 tablet by ity of tablet 00:00: SEE-INSTRU Medical CTIONS. Branch Take one tab the night before and one tab the morning of procedure miSOPROStoL 2021-0 Yes [id number] 200ug Take 1 Univers 200 mcg 4-29 tablet by ity of tablet 00:00: mouth SEE-INSTRU Medical CTIONS. Branch Take one tab the night before and one tab the morning of procedure miSOPROStoL 2021-0 Yes [id number] 200ug Take 1 Univers 200 mcg 4-29 tablet by ity of tablet 00:00: mouth SEE-INSTRU Medical CTIONS. Branch Take one tab the night before and one tab the morning of procedure miSOPROStoL 2021-0 Yes [id number] 200ug Take 1 Univers 200 mcg 4-29 tablet by ity of tablet 00:00: mouth SEE-INSTRU Medical CTIONS. Branch Take one tab the night before and one tab the morning of procedure miSOPROStoL 2021-0 Yes [id number] 200ug Take 1 Univers 200 mcg 4-29 tablet by ity of tablet 00:00: SEE-INSTRU Medical CTIONS. Branch Take one tab the night before and one tab the morning of procedure miSOPROStoL 2021-0 Yes [id number] 200ug Take 1 Univers 200 mcg 4-29 tablet by ity of tablet 00:00: SEE-INSTRU Medical CTIONS. Branch Take one tab the night before and one tab the morning of procedure miSOPROStoL 2021-0 Yes [id number] 200ug Take 1 Univers 200 mcg 4-29 tablet by ity of tablet 00:00: SEE-INSTRU Medical CTIONS. Branch Take one tab the night before and one tab the morning of procedure miSOPROStoL 2021-0 2021- No [id number] 200ug Take 1 Univers 200 mcg 4-29 10-06 tablet by ity of tablet 00:00: 00:00 mouth [place] 00 :00 SEE-INSTRU Medical CTIONS. Branch Take one tab the night before and one tab the morning of procedure miSOPROStoL 2021- No [id number] 200ug Take 1 Univers 200 mcg 4-29 10-06 tablet by ity of tablet 00:00: 00:00 [facility] 00 :00 SEE-INSTRU Medical CTIONS. Branch Take one tab the night before and one tab the morning of procedure miSOPROStoL 2021- No [id number] 200ug Take 1 Univers 200 mcg 4-29 10-06 tablet by ity of tablet 00:00: 00:00 [facility] 00 :00 SEE-INSTRU Medical CTIONS. Branch Take one tab the night before and one tab the morning of procedure miSOPROStoL 2021- No [id number] 200ug Take 1 Univers 200 mcg 4-29 10-06 tablet by ity of tablet 00:00: 00:00 [facility] 00 :00 SEE-INSTRU Medical CTIONS. Branch Take one tab the night before and one tab the morning of procedure miSOPROStoL 2021- No [id number] 200ug Take 1 Univers 200 mcg 4-29 10-06 tablet by ity of tablet 00:00: 00:00 [facility] 00 :00 SEE-INSTRU Medical CTIONS. Branch Take one tab the night before and one tab the morning of procedure miSOPROStoL 2021- No [id number] 200ug Take 1 Univers 200 mcg 4-29 10-06 tablet by ity of tablet 00:00: 00:00 [facility] 00 :00 SEE-INSTRU Medical CTIONS. Branch Take one tab the night before and one tab the morning of procedure miSOPROStoL 2021- No [id number] 200ug Take 1 Univers 200 mcg 4-29 10-06 tablet by ity of tablet 00:00: 00:00 [facility] 00 :00 SEE-INSTRU Medical CTIONS. Branch Take one tab the night before and one tab the morning of procedure miSOPROStoL 2021- No [id number] 200ug Take 1 Univers 200 mcg 4-29 10-06 tablet by ity of tablet 00:00: 00:00 [facility] 00 :00 SEE-INSTRU Medical CTIONS. Branch Take one tab the night before and one tab the morning of procedure miSOPROStoL 2021- No [id number] 200ug Take 1 Univers 200 mcg 4-29 10-06 tablet by ity of tablet 00:00: 00:00 [facility] 00 :00 SEE-INSTRU Medical CTIONS. Branch Take one tab the night before and one tab the morning of procedure miSOPROStoL 2021- No [id number] 200ug Take 1 Univers 200 mcg 4-29 10-06 tablet by ity of tablet 00:00: 00:00 [facility] 00 :00 SEE-INSTRU Medical CTIONS. Branch Take one tab the night before and one tab the morning of procedure miSOPROStoL 2021- No [id number] 200ug Take 1 Univers 200 mcg 4-29 10-06 tablet by ity of tablet 00:00: 00:00 [facility] 00 :00 SEE-INSTRU Medical CTIONS. Branch Take one tab the night before and one tab the morning of procedure miSOPROStoL 2021- No [id number] 200ug Take 1 Univers 200 mcg 4-29 10-06 tablet by ity of tablet 00:00: 00:00 [facility] 00 :00 SEE-INSTRU Medical CTIONS. Branch Take one tab the night before and one tab the morning of procedure miSOPROStoL 2021- No [id number] 200ug Take 1 Univers 200 mcg 4-29 10-06 tablet by ity of tablet 00:00: 00:00 [facility] 00 :00 SEE-INSTRU Medical CTIONS. Branch Take one tab the night before and one tab the morning of procedure miSOPROStoL 2021- No [id number] 200ug Take 1 Univers 200 mcg 4-29 10-06 tablet by ity of tablet 00:00: 00:00 [facility] 00 :00 SEE-INSTRU Medical CTIONS. Branch Take one tab the night before and one tab the morning of procedure miSOPROStoL 2021-2021- No [id number] 200ug Take 1 Univers 200 mcg 4-29 10-06 tablet by ity of tablet 00:00: 00:00 [facility] 00 :00 SEE-INSTRU Medical CTIONS. Branch Take one tab the night before and one tab the morning of procedure miSOPROStoL 2021-2021- No [id number] 200ug Take 1 Univers 200 mcg 4-29 10-06 tablet by ity of tablet 00:00: 00:00 mouth [place] 00 :00 SEE-INSTRU Medical CTIONS. Branch Take one tab the night before and one tab the morning of procedure miSOPROStoL 2021- No [id number] 200ug Take 1 Univers 200 mcg 4-04-07 tablet by ity of tablet 00:00: 00:00 mouth [place] 00 :00 SEE-INSTRU Medical CTIONS. Branch Take one tab the night before and one tab the morning of procedure miSOPROStoL 2021- No [id number] 200ug Take 1 Univers 200 mcg 4-30 04- tablet by ity of tablet 00:00: 00:00 mouth [place] 00 :00 SEE-INSTRU Medical CTIONS. Branch Take one tab the night before and one tab the morning of procedure Immunizations Ordered Immunization Filled Immunization Date Status Commen ts Source Name Name SARS-COV-2 COVID-2022-03-17 Completed Unive rsity of MIKE-SUCROSE VACCINE 00:00:00 [facility] 12 YRS+, BIVALENT Branch 0.3ML, IM, (PFIZER ARITA TOP BOOSTER) SARS-COV-2 COVID-19 2022-03-17 Completed Unive rsity of MIKE-SUCROSE VACCINE 00:00:00 [facility] 12 YRS+, BIVALENT Branch 0.3ML, IM, (PFIZER ARITA TOP BOOSTER) SARS-COV-2 COVID-19 2022-03-17 Completed Unive rsity of MIKE-SUCROSE VACCINE 00:00:00 [facility] 12 YRS+, BIVALENT Branch 0.3ML, IM, (PFIZER ARITA TOP BOOSTER) SARS-COV-2 COVID-19 2022-03-17 Completed Unive rsity of MIKE-SUCROSE VACCINE 00:00:00 [facility] 12 YRS+, BIVALENT Branch 0.3ML, IM, (PFIZER ARITA TOP BOOSTER) SARS-COV-2 COVID-19 2022-03-17 Completed Unive rsity of MIKE-SUCROSE VACCINE 00:00:00 [facility] 12 YRS+, BIVALENT Branch 0.3ML, IM, (PFIZER ARITA TOP BOOSTER) SARS-COV-2 COVID-19 2022-03-17 Completed Unive rsity of MIKE-SUCROSE VACCINE 00:00:00 [facility] 12 YRS+, BIVALENT Branch 0.3ML, IM, (PFIZER ARITA TOP BOOSTER) SARS-COV-2 COVID-19 2022-03-17 Completed Unive rsity of MIKE-SUCROSE VACCINE 00:00:00 [facility] 12 YRS+, BIVALENT Branch 0.3ML, IM, (PFIZER ARITA TOP BOOSTER) SARS-COV-2 COVID-19 2022-03-17 Completed Unive rsity of MIKE-SUCROSE VACCINE 00:00:00 [facility] 12 YRS+, BIVALENT Branch 0.3ML, IM, (PFIZER ARITA TOP BOOSTER) SARS-COV-2 COVID-19 2022-03-17 Completed Unive rsity of MIKE-SUCROSE VACCINE 00:00:00 [facility] 12 YRS+, BIVALENT Branch 0.3ML, IM, (PFIZER ARITA TOP BOOSTER) SARS-COV-2 COVID-19 2022-03-17 Completed Unive rsity of MIKE-SUCROSE VACCINE 00:00:00 [facility] 12 YRS+, BIVALENT Branch 0.3ML, IM, (PFIZER ARITA TOP BOOSTER) SARS-COV-2 COVID-19 2022-03-17 Completed Unive rsity of MIKE-SUCROSE VACCINE 00:00:00 [facility] 12 YRS+, BIVALENT Branch 0.3ML, IM, (PFIZER ARITA TOP BOOSTER) SARS-COV-2 COVID-19 2022-03-17 Completed Unive rsity of MIKE-SUCROSE VACCINE 00:00:00 [facility] 12 YRS+, BIVALENT Branch 0.3ML, IM, (PFIZER ARITA TOP BOOSTER) SARS-COV-2 COVID-19 2022-03-17 Completed Unive rsity of MIKE-SUCROSE VACCINE 00:00:00 [facility] 12 YRS+, BIVALENT Branch 0.3ML, IM, (PFIZER ARITA TOP BOOSTER) SARS-COV-2 COVID-19 2022-03-17 Completed Unive rsity of MIKE-SUCROSE VACCINE 00:00:00 [facility] 12 YRS+, BIVALENT Branch 0.3ML, IM, (PFIZER ARITA TOP BOOSTER) SARS-COV-2 COVID-19 2022-03-17 Completed Unive rsity of MIKE-SUCROSE VACCINE 00:00:00 [facility] 12 YRS+, BIVALENT Branch 0.3ML, IM, (PFIZER ARITA TOP BOOSTER) SARS-COV-2 COVID-19 2022-03-17 Completed Unive rsity of MIKE-SUCROSE VACCINE 00:00:00 [facility] 12 YRS+, BIVALENT Branch 0.3ML, IM, (PFIZER ARITA TOP BOOSTER) SARS-COV-2 COVID-19 2022-03-17 Completed Unive rsity of MIKE-SUCROSE VACCINE 00:00:00 [facility] 12 YRS+, BIVALENT Branch 0.3ML, IM, (PFIZER ARITA TOP BOOSTER) SARS-COV-2 COVID-19 2022-03-17 Completed Unive rsity of MIKE-SUCROSE VACCINE 00:00:00 [facility] 12 YRS+, BIVALENT Branch 0.3ML, IM, (PFIZER ARITA TOP BOOSTER) SARS-COV-2 COVID-19 2022-03-17 Completed Unive rsity of MIKE-SUCROSE VACCINE 00:00:00 [facility] 12 YRS+, BIVALENT Branch 0.3ML, IM, (PFIZER ARITA TOP BOOSTER) SARS-COV-2 COVID-19 2022-03-17 Completed Unive rsity of MIKE-SUCROSE VACCINE 00:00:00 [facility] 12 YRS+, BIVALENT Branch 0.3ML, IM, (PFIZER ARITA TOP BOOSTER) SARS-COV-2 COVID-19 2022-03-17 Completed Unive rsity of MIKE-SUCROSE VACCINE 00:00:00 [facility] 12 YRS+, BIVALENT Branch 0.3ML, IM, (PFIZER ARITA TOP BOOSTER) SARS-COV-2 COVID-19 2022-03-17 Completed Unive rsity of MIKE-SUCROSE VACCINE 00:00:00 [facility] 12 YRS+, BIVALENT Branch 0.3ML, IM, (PFIZER ARITA TOP BOOSTER) SARS-COV-2 COVID-19 2022-03-17 Completed Unive rsity of MIKE-SUCROSE VACCINE 00:00:00 [facility] 12 YRS+, BIVALENT Branch 0.3ML, IM, (PFIZER ARITA TOP BOOSTER) SARS-COV-2 COVID-19 2022-03-17 Completed Unive rsity of MIKE-SUCROSE VACCINE 00:00:00 [facility] 12 YRS+, BIVALENT Branch 0.3ML, IM, (PFIZER ARITA TOP BOOSTER) SARS-COV-2 COVID-19 2022-03-17 Completed Unive rsity of MIKE-SUCROSE VACCINE 00:00:00 [facility] 12 YRS+, BIVALENT Branch 0.3ML, IM, (PFIZER ARITA TOP BOOSTER) SARS-COV-2 COVID-19 2022-03-17 Completed Unive rsity of MIKE-SUCROSE VACCINE 00:00:00 [facility] 12 YRS+, BIVALENT Branch 0.3ML, IM, (PFIZER ARITA TOP BOOSTER) SARS-COV-2 COVID-19 2022-03-17 Completed Unive rsity of MIKE-SUCROSE VACCINE 00:00:00 [facility] 12 YRS+, BIVALENT Branch 0.3ML, IM, (PFIZER ARITA TOP BOOSTER) SARS-COV-2 COVID-19 2022-03-17 Completed Unive rsity of MIKE-SUCROSE VACCINE 00:00:00 [facility] 12 YRS+, BIVALENT Branch 0.3ML, IM, (PFIZER ARITA TOP BOOSTER) SARS-COV-2 COVID-19 2022-03-17 Completed Unive rsity of MIKE-SUCROSE VACCINE 00:00:00 [facility] 12 YRS+, BIVALENT Branch 0.3ML, IM, (PFIZER ARITA TOP BOOSTER) SARS-COV-2 COVID-19 2022-03-17 Completed Unive rsity of MIKE-SUCROSE VACCINE 00:00:00 [facility] 12 YRS+, BIVALENT Branch 0.3ML, IM, (PFIZER ARITA TOP BOOSTER) SARS-COV-2 COVID-19 2022-03-17 Completed Unive rsity of MIKE-SUCROSE VACCINE 00:00:00 [facility] 12 YRS+, BIVALENT Branch 0.3ML, IM, (PFIZER ARITA TOP BOOSTER) SARS-COV-2 COVID-19 2022-03-17 Completed Unive rsity of MIKE-SUCROSE VACCINE 00:00:00 [facility] 12 YRS+, BIVALENT Branch 0.3ML, IM, (PFIZER ARITA TOP BOOSTER) SARS-COV-2 COVID-19 2022-03-17 Completed Unive rsity of MIKE-SUCROSE VACCINE 00:00:00 [facility] 12 YRS+, BIVALENT Branch 0.3ML, IM, (PFIZER ARITA TOP BOOSTER) SARS-COV-2 COVID-19 2022-03-17 Completed Unive rsity of MIKE-SUCROSE VACCINE 00:00:00 [facility] 12 YRS+, BIVALENT Branch 0.3ML, IM, (PFIZER ARITA TOP BOOSTER) SARS-COV-2 COVID-19 2022-03-17 Completed Unive rsity of MIKE-SUCROSE VACCINE 00:00:00 [facility] 12 YRS+, BIVALENT Branch 0.3ML, IM, (PFIZER ARITA TOP BOOSTER) SARS-COV-2 COVID-19 2022-03-17 Completed Unive rsity of MIKE-SUCROSE VACCINE 00:00:00 [facility] 12 YRS+, BIVALENT Branch 0.3ML, IM, (PFIZER ARITA TOP BOOSTER) SARS-COV-2 COVID-19 2022-03-17 Completed Unive rsity of MIKE-SUCROSE VACCINE 00:00:00 [facility] 12 YRS+, BIVALENT Branch 0.3ML, IM, (PFIZER ARITA TOP BOOSTER) SARS-COV-2 COVID-19 2022-03-17 Completed [facility] of MIKE-SUCROSE VACCINE 00:00:00 [facility] 12 YRS+, BIVALENT Branch 0.3ML, IM, (PFIZER ARITA TOP BOOSTER) SARS-COV-2 COVID-19 2022-03-17 Completed [facility] of MIKE-SUCROSE VACCINE 00:00:00 [facility] 12 YRS+, BIVALENT Branch 0.3ML, IM, (PFIZER ARITA TOP BOOSTER) SARS-COV-2 COVID-19 2022-03-17 Completed [facility] of MIKE-SUCROSE VACCINE 00:00:00 [facility] 12 YRS+, BIVALENT Branch 0.3ML, IM, (PFIZER ARITA TOP BOOSTER) SARS-COV-2 COVID-19 2022-03-17 Completed [facility] rs[facility] of MIKE-SUCROSE VACCINE 00:00:00 [facility] 12 YRS+, BIVALENT Branch 0.3ML, IM, (PFIZER ARITA TOP BOOSTER) SARS-COV-2 COVID-19 2022-03-17 Completed [facility] rs[facility] of MIKE-SUCROSE VACCINE 00:00:00 [facility] 12 YRS+, BIVALENT Branch 0.3ML, IM, (PFIZER ARITA TOP BOOSTER) SARS-COV-2 COVID-19 2022-03-17 Completed [facility] rs[facility] of MIKE-SUCROSE VACCINE 00:00:00 [facility] 12 YRS+, BIVALENT Branch 0.3ML, IM, (PFIZER ARITA TOP BOOSTER) SARS-COV-2 COVID-19 2022-03-17 Completed [facility] rs[facility] of MIKE-SUCROSE VACCINE 00:00:00 [facility] 12 YRS+, BIVALENT Branch 0.3ML, IM, [...] Completed [facility] MIKE-SUCROSE [facility]ACCINE 00:00[facility] BIV[facility]ENT Branch 0.3ML, [...] Completed Unive rsity of PFIZER VACCINE 00:00:00 [facility] SARS-COV-2 COVID-19 2021-06-24 Completed [facility]ive rsity of PFIZER VACCINE 00:00:00 [facility] SARS-COV-2 COVID-19 2021-06-24 Completed Unive rsity [...] Completed Unive rsity of PFIZER VACCINE 00:00:00 [facility] SARS-COV-2 COVID-19 2021-06-24 Completed [facility]ive rsity of PFIZER VACCINE 00:00:00 [facility] SARS-COV-2 COVID-19 2021-06-24 Completed Unive rsity [...] Completed [facility]ive rsity of PFIZER VACCINE 00:00:00 [facility] SARS-COV-2 COVID-19 2020-11-21 Completed Unive rsity [...] Completed Unive rsity of PFIZER VACCINE 00:00:00 [facility] SARS-COV-2 COVID-19 2020-10-24 Completed [facility]ive rsity of PFIZER VACCINE 00:00:00 [facility] SARS-COV-2 COVID-19 2020-10-24 Completed Unive rsity of PFIZER VACCINE 00:00:00 [facility] SARS-COV-2 COVID-19 2020-10-24 Completed [facility]ive rsity of PFIZER VACCINE 00:00:00 [facility] SARS-COV-2 COVID-19 2020-10-24 Completed [facility]ive rsity of PFIZER VACCINE 00:00:00 [facility] SARS-COV-2 COVID-19 2020-10-24 Completed [facility]ive rsity of PFIZER VACCINE 00:00:00 [facility] SARS-COV-2 COVID-19 2020-10-24 Completed [facility]ive rsity of PFIZER VACCINE 00:00:00 [facility] SARS-COV-2 COVID-19 2020-10-24 Completed [facility]ive rsity of PFIZER VACCINE 00:00:00 [facility] SARS-COV-2 COVID-19 2020-10-24 Completed [facility]ive rsity of PFIZER VACCINE 00:00:00 [facility] SARS-COV-2 COVID-19 2020-10-24 Completed [facility]ive rsity of PFIZER VACCINE 00:00:00 [facility] SARS-COV-2 COVID-19 2020-10-24 Completed [facility]ive rsity of PFIZER VACCINE 00:00:00 [facility] SARS-COV-2 COVID-19 2020-10-24 Completed [facility]ive rsity of PFIZER VACCINE 00:00:00 [facility] SARS-COV-2 COVID-19 2020-10-24 Completed [facility]ive rsity of PFIZER VACCINE 00:00:00 [facility] SARS-COV-2 COVID-19 2020-10-24 Completed [facility]ive rsity of PFIZER VACCINE 00:00:00 [facility] SARS-COV-2 COVID-19 2020-10-24 Completed [facility] rsity of PFIZER VACCINE 00:00:00 [facility] SARS-COV-2 COVID-19 2020-10-24 Completed [facility]ive rsity of PFIZER VACCINE 00:00:00 [facility] SARS-COV-2 COVID-19 2020-10-24 Completed [facility]ive rsity of PFIZER VACCINE 00:00:00 [facility] SARS-COV-2 COVID-19 2020-10-24 Completed [facility] rsity of PFIZER VACCINE 00:00:00 [facility] SARS-COV-2 COVID-19 2020-10-24 Completed [facility]ive rsity of PFIZER VACCINE 00:00:00 [facility] SARS-COV-2 COVID-19 2020-10-24 Completed [facility] rsity of PFIZER VACCINE 00:00:00 [facility] SARS-COV-2 COVID-19 2020-10-24 Completed Unive rsity [...] Completed [facility]ive rsity of PFIZER VACCINE 00:00:00 [facility] SARS-COV-2 COVID-19 2020-10-24 Completed [facility]ive rsity of PFIZER VACCINE 00:00:00 [facility] SARS-COV-2 COVID-19 2020-10-24 Completed Unive rsity [...] Completed [facility]ive rsity of PFIZER VACCINE 00:00:00 [facility] SARS-COV-2 COVID-19 2020-10-24 Completed [facility]ive rsity of PFIZER VACCINE 00:00:00 [facility] SARS-COV-2 COVID-19 2020-10-24 Completed [facility]ive rsity of PFIZER VACCINE 00:00:00 [facility] SARS-COV-2 COVID-19 2020-10-24 Completed [facility]ive rsity of PFIZER VACCINE 00:00:00 [facility] SARS-COV-2 COVID-19 2020-10-24 Completed [facility]ive rsity of PFIZER VACCINE 00:00:00 [facility] SARS-COV-2 COVID-19 2020-10-24 Completed [facility]ive rsity of PFIZER VACCINE 00:00:00 [facility] SARS-COV-2 COVID-19 2020-10-24 Completed [facility]ive rsity of PFIZER VACCINE 00:00:00 [facility] SARS-COV-2 COVID-19 2020-10-24 Completed [facility]ive rsity of PFIZER VACCINE 00:00:00 [facility] SARS-COV-2 COVID-19 2020-10-24 Completed [facility]ive rsity of PFIZER VACCINE 00:00:00 [facility] SARS-COV-2 COVID-19 2020-10-24 Completed [facility]ive rsity of PFIZER VACCINE 00:00:00 [facility] SARS-COV-2 COVID-19 2020-10-24 Completed [facility] rsity of PFIZER VACCINE 00:00:00 [facility] Influenza Virus 2020-07-08 Completed [facility]it y [...] 00:00:00 [facility] MO [facility] Influenza Virus [...] [facility] ersity of 00:00:00 [facility] Influenza Virus 2018-08-29 Completed Universit y of Vaccine Quad .5 mL IM 00:00:00 [facility] 6[facility] MO [facility] Meningococcal B, OMV 2018-08-29 Completed Univ ersity of 00:00:00 [facility] Influenza Virus 2018-08-29 Completed Universit y of Vaccine Quad .5 mL IM 00:00:00 [facility] 6[facility] MO [facility] Meningococcal B, OMV 2018-08-29 Completed Univ ersity of 00:00:00 [facility] Influenza Virus 2018-08-29 Completed [facility]it y of Vaccine Quad .5 mL IM 00:00:00 [facility] 6[facility] MO [facility] Meningococcal B, OMV 2018-08-29 Completed Univ ersity of 00:00:00 [facility] Influenza Virus 2018-08-29 Completed [facility]it y of Vaccine Quad .5 mL IM 00:00:00 [facility] 6[facility] MO [facility] Meningococcal B, OMV 2018-08-29 Completed Univ ersity of 00:00:00 [facility] Influenza Virus 2018-08-29 Completed [facility]it y of Vaccine Quad .5 mL IM 00:00:00 [facility] 6[facility] MO [facility] Meningococcal B, OMV 2018-08-29 Completed Univ ersity of 00:00:00 [facility] Influenza Virus 2018-08-29 Completed [facility]it y of Vaccine Quad .5 mL IM 00:00:00 [facility] 6[facility] MO [facility] Meningococcal B, OMV 2018-08-29 Completed Univ ersity of 00:00:00 [facility] Influenza Virus 2018-08-29 Completed [facility]it y of Vaccine Quad .5 mL IM 00:00:00 [facility] 6[facility] MO [facility] Meningococcal B, OMV 2018-08-29 Completed Univ ersity of 00:00:00 [facility] Influenza Virus 2018-08-29 Completed [facility]it y of Vaccine Quad .5 mL IM 00:00:00 [facility] 6[facility] MO [facility] Meningococcal B, OMV 2018-08-29 Completed Univ ersity of 00:00:00 [facility] Influenza Virus 2018-08-29 Completed [facility]it y of Vaccine Quad .5 mL IM 00:00:00 [facility] 6[facility] MO [facility] Meningococcal B, OMV 2018-08-29 Completed Univ ersity of 00:00:00 [facility] Influenza Virus 2018-08-29 Completed [facility] y of Vaccine Quad .5 mL IM 00:00:00 [facility] 6[facility] MO [facility] Meningococcal B, OMV 2018-08-29 Completed Univ ersity of 00:00:00 [facility] Influenza Virus 2018-08-29 Completed [facility] y of Vaccine Quad .5 mL IM 00:00:00 [facility] 6[facility] MO [facility] Meningococcal B, OMV 2018-08-29 Completed Univ ersity of 00:00:00 [facility] Influenza Virus 2018-08-29 Completed [facility] y of Vaccine Quad .5 mL IM 00:00:00 [facility] 6[facility] MO [facility] Meningococcal B, OMV 2018-08-29 Completed Univ ersity of 00:00:00 [facility] Influenza Virus 2018-08-29 Completed [facility] y of Vaccine Quad .5 mL IM 00:00:00 [facility] 6[facility] MO [facility] Meningococcal B, OMV 2018-08-29 Completed Univ ersity of 00:00:00 [facility] Influenza Virus 2018-08-29 Completed [facility]it y of Vaccine Quad .5 mL IM 00:00:00 [facility] MO [facility] Meningococcal B, OMV 2018-08-29 Completed Univ ersity of 00:00:00 [facility] Influenza Virus 2018-08-29 Completed [facility] y of Vaccine Quad .5 mL IM 00:00:00 [facility] 6[facility] MO [facility] Meningococcal B, OMV 2018-08-29 Completed Univ ersity of 00:00:00 [facility] Influenza Virus 2018-08-29 Completed [facility] y of Vaccine Quad .5 mL IM 00:00:00 [facility] 6[facility] MO [facility] Meningococcal B, OMV 2018-08-29 Completed Univ ersity of 00:00:00 [facility] Influenza Virus 2018-08-29 Completed [facility] y of Vaccine Quad .5 mL IM 00:00:00 [facility] 6[facility] MO [facility] Meningococcal B, OMV 2018-08-29 Completed Univ ersity of 00:00:00 [facility] Influenza Virus 2018-08-29 Completed [facility] y of Vaccine Quad .5 mL IM 00:00:00 [facility] 6[facility] MO [facility] Meningococcal B, OMV 2018-08-29 Completed Univ ersity of 00:00:00 [facility] Influenza Virus 2018-08-29 Completed [facility] y of Vaccine Quad .5 mL IM 00:00:00 [facility] MO [facility] Meningococcal B, OMV 2018-08-29 Completed Univ ersity of 00:00:00 [facility] Influenza Virus 2018-08-29 Completed [facility] y of Vaccine Quad .5 mL IM 00:00:00 [facility] 6[facility] MO [facility] Meningococcal B, OMV 2018-08-29 Completed Univ ersity of 00:00:00 [facility] Influenza Virus 2018-08-29 Completed [facility] y of Vaccine Quad .5 mL IM 00:00:00 [facility] 6[facility] MO [facility] Meningococcal B, OMV 2018-08-29 Completed Univ ersity of 00:00:00 [facility] Influenza Virus 2018-08-29 Completed [facility] y of Vaccine Quad .5 mL IM 00:00:00 [facility] 6[facility] MO [facility] Meningococcal B, OMV 2018-08-29 Completed Univ ersity of 00:00:00 [facility] Influenza Virus 2018-08-29 Completed [facility] of Vaccine Quad .5 mL IM 00:00:00 [facility] 6[facility] MO [facility] Meningococcal B, OMV 2018-08-29 Completed Univ ersity of 00:00:00 [facility] Influenza Virus 2018-08-29 Completed [facility] y of Vaccine Quad .5 mL IM 00:00:00 [facility] 6[facility] MO [facility] Meningococcal B, OMV 2018-08-29 Completed Univ ersity of 00:00:00 [facility] Influenza Virus 2018-08-29 Completed [facility] y of Vaccine Quad .5 mL IM 00:00:00 [facility] 6[facility] MO [facility] Meningococcal B, OMV 2018-08-29 Completed Univ ersity of 00:00:00 [facility] Influenza Virus 2018-08-29 Completed [facility] y of Vaccine Quad .5 mL IM 00:00:00 [facility] 6[facility] MO [facility] Meningococcal B, OMV 2018-08-29 Completed Univ ersity of 00:00:00 [facility] Influenza Virus 2018-08-29 Completed [facility] of Vaccine Quad .5 mL IM 00:00:00 [facility] 6[facility] MO [facility] Meningococcal B, OMV 2018-08-29 Completed Univ ersity of 00:00:00 [facility] Influenza Virus 2018-08-29 Completed [facility] y of Vaccine Quad .5 mL IM 00:00:00 [facility] 6[facility] MO [facility] Meningococcal B, OMV 2018-08-29 Completed Univ ersity of 00:00:00 [facility] Influenza Virus 2018-08-29 Completed [facility] y of Vaccine Quad .5 mL IM 00:00:00 [facility] MO [facility] Meningococcal B, OMV 2018-08-29 Completed Univ ersity of 00:00:00 [facility] Influenza Virus 2018-08-29 Completed [facility] y of Vaccine Quad .5 mL IM 00:00:00 [facility] MO [facility] Meningococcal B, OMV 2018-08-29 Completed Univ ersity of 00:00:00 [facility] Influenza Virus 2018-08-29 Completed [facility] y of Vaccine Quad .5 mL IM 00:00:00 [facility] MO [facility] Meningococcal B, OMV 2018-08-29 Completed Univ ersity of 00:00:00 [facility] Influenza Virus 2018-08-29 Completed [facility] y of Vaccine Quad .5 mL IM 00:00:00 [facility] MO [facility] Meningococcal B, OMV 2018-08-29 Completed Univ ersity of 00:00:00 [facility] Influenza Virus 2018-08-29 Completed [facility] y of Vaccine Quad .5 mL IM 00:00:00 [facility] 6[facility] MO [facility] Meningococcal B, OMV 2018-08-29 Completed Univ ersity of 00:00:00 [facility] Influenza Virus 2018-08-29 Completed [facility] y of Vaccine Quad .5 mL IM 00:00:00 [facility] 6[facility] MO [facility] Meningococcal B, OMV 2018-08-29 Completed Univ ersity of 00:00:00 [facility] Influenza Virus 2018-08-29 Completed [facility] y of Vaccine Quad .5 mL IM 00:00:00 [facility] MO [facility] Meningococcal B, OMV 2018-08-29 Completed Univ ersity of 00:00:00 [facility] Influenza Virus 2018-08-29 Completed [facility] y of Vaccine Quad .5 mL IM 00:00:00 [facility] 6[facility] MO [facility] Meningococcal B, OMV 2018-08-29 Completed Univ ersity of 00:00:00 [facility] Influenza Virus 2018-08-29 Completed [facility] y of Vaccine Quad .5 mL IM 00:00:00 [facility] MO [facility] Meningococcal B, OMV 2018-08-29 Completed Univ ersity of 00:00:00 [facility] Influenza Virus 2018-08-29 Completed [facility] y of Vaccine Quad .5 mL IM 00:00:00 [facility] MO [facility] Meningococcal B, OMV 2018-08-29 Completed Univ ersity of 00:00:00 [facility] Influenza Virus 2018-08-29 Completed [facility] y of Vaccine Quad .5 mL IM 00:00:00 [facility] MO [facility] Meningococcal B, OMV 2018-08-29 Completed Univ ersity of 00:00:00 [facility] Influenza Virus 2018-08-29 Completed [facility] y of Vaccine Quad .5 mL IM 00:00:00 [facility] MO [facility] Meningococcal B, OMV 2018-08-29 Completed Univ ersity of 00:00:00 [facility] Influenza Virus 2018-08-29 Completed [facility] y of Vaccine Quad .5 mL IM 00:00:00 [facility] MO [facility] Meningococcal B, OMV 2018-08-29 Completed Univ ersity of 00:00:00 [facility] Influenza Virus 2018-08-29 Completed [facility]it y of Vaccine Quad .5 mL IM 00:00:00 [facility] MO [facility] Meningococcal B, OMV 2018-08-29 Completed Univ ersity of 00:00:00 [facility] Influenza Virus 2018-08-29 Completed [facility] y of Vaccine Quad .5 mL IM 00:00:00 [facility] MO [facility] Meningococcal B, OMV 2018-08-29 Completed Univ ersity of 00:00:00 [facility] Influenza Virus 2018-08-29 Completed [facility]it y of Vaccine Quad .5 mL IM 00:00:00 [facility] MO [facility] Meningococcal B, OMV 2018-08-29 Completed Univ ersity of 00:00:00 [facility] Influenza Virus 2018-08-29 Completed [facility] y of Vaccine Quad .5 mL IM 00:00:00 [facility] MO [facility] Meningococcal B, OMV 2018-08-29 Completed Univ ersity of 00:00:00 [facility] Influenza Virus 2018-08-29 Completed [facility] y of Vaccine Quad .5 mL IM 00:00:00 [facility] MO [facility] Meningococcal B, OMV 2018-08-29 Completed Univ ersity of 00:00:00 [facility] Influenza Virus 2018-08-29 Completed [facility] y of Vaccine Quad .5 mL IM 00:00:00 [facility] MO [facility] Meningococcal B, OMV 2018-08-29 Completed Univ ersity of 00:00:00 [facility] Influenza Virus 2018-08-29 Completed [facility] y of Vaccine Quad .5 mL IM 00:00:00 [facility] MO [facility] Meningococcal B, OMV 2018-08-29 Completed Univ ersity of 00:00:00 [facility] Meningococcal 2018-01-17 Completed University of Polysaccharide [...] y of Vaccine Quad IM 3+ 00:00:00 [facility] Influenza Virus 2017-04-12 Completed Universit y of Vaccine Quad IM 3+ 00:00:00 [facility] Influenza Virus 2017-04-12 Completed [facility]it y of Vaccine Quad IM 3+ 00:00:00 [facility] Influenza Virus 2017-04-12 Completed Universit y of Vaccine Quad IM 3+ 00:00:00 [facility] Influenza Virus 2017-04-12 Completed [facility]it y of Vaccine Quad IM 3+ 00:00:00 [facility] Influenza Virus 2017-04-12 Completed [facility]it y of Vaccine Quad IM 3+ 00:00:00 [facility] Influenza Virus 2017-04-12 Completed [facility]it y of Vaccine Quad IM 3+ 00:00:00 [facility] Influenza Virus 2017-04-12 Completed [facility]it y of Vaccine Quad IM 3+ 00:00:00 [facility] Influenza Virus 2017-04-12 Completed [facility]it y of Vaccine Quad IM 3+ 00:00:00 [facility] Influenza Virus 2017-04-12 Completed [facility]it y of Vaccine Quad IM 3+ 00:00:00 [facility] Influenza Virus 2017-04-12 Completed [facility]it y of Vaccine Quad IM 3+ 00:00:00 [facility] Influenza Virus 2017-04-12 Completed [facility]it y of Vaccine Quad IM 3+ 00:00:00 [facility] Influenza Virus 2017-04-12 Completed [facility]it y of Vaccine Quad IM 3+ 00:00:00 [facility] Influenza Virus 2017-04-12 Completed [facility]it y of Vaccine Quad IM 3+ 00:00:00 [facility] Influenza Virus 2017-04-12 Completed [facility]it y of Vaccine Quad IM 3+ 00:00:00 [facility] Influenza Virus 2017-04-12 Completed [facility]it y of Vaccine Quad IM 3+ 00:00:00 [facility] Influenza Virus 2017-04-12 Completed [facility]it y of Vaccine Quad IM 3+ 00:00:00 [facility] Influenza Virus 2017-04-12 Completed [facility]it y of Vaccine Quad IM 3+ 00:00:00 [facility] Influenza Virus 2017-04-12 Completed [facility]it y of Vaccine Quad IM 3+ 00:00:00 [facility] Influenza Virus 2017-04-12 Completed [facility]it y of Vaccine Quad IM 3+ 00:00:00 [facility] Influenza Virus 2017-04-12 Completed [facility]it y of Vaccine Quad IM 3+ 00:00:00 [facility] Influenza Virus 2017-04-12 Completed [facility]it y of Vaccine Quad IM 3+ 00:00:00 [facility] Influenza Virus 2017-04-12 Completed [facility]it y of Vaccine Quad IM 3+ 00:00:00 [facility] Influenza Virus 2017-04-12 Completed [facility]it y of Vaccine Quad IM 3+ 00:00:00 [facility] Influenza Virus 2017-04-12 Completed [facility]it y of Vaccine Quad IM 3+ 00:00:00 [facility] Influenza Virus 2017-04-12 Completed [facility]it y of Vaccine Quad IM 3+ 00:00:00 [facility] Influenza Virus 2017-04-12 Completed [facility]it y of Vaccine Quad IM 3+ 00:00:00 [facility] Influenza Virus 2017-04-12 Completed [facility]it y of Vaccine Quad IM 3+ 00:00:00 [facility] Influenza Virus 2017-04-12 Completed [facility]it y of Vaccine Quad IM 3+ 00:00:00 [facility] Influenza Virus 2017-04-12 Completed [facility]it y of Vaccine Quad IM 3+ 00:00:00 [facility] Influenza Virus 2017-04-12 Completed [facility]it y of Vaccine Quad IM 3+ 00:00:00 [facility] Influenza Virus 2017-04-12 Completed [facility]it y of Vaccine Quad IM 3+ 00:00:00 [facility] Influenza Virus 2017-04-12 Completed [facility]it y of Vaccine Quad IM 3+ 00:00:00 [facility] Influenza Virus 2017-04-12 Completed [facility]it y of Vaccine Quad IM 3+ 00:00:00 [facility] Influenza Virus 2017-04-12 Completed [facility]it y of Vaccine Quad IM 3+ 00:00:00 [facility] Influenza Virus 2017-04-12 Completed [facility]it y of Vaccine Quad IM 3+ 00:00:00 [facility] Influenza Virus 2017-04-12 Completed [facility]it y of Vaccine Quad IM 3+ 00:00:00 [facility] Influenza Virus 2017-04-12 Completed [facility]it y of Vaccine Quad IM 3+ 00:00:00 [facility] Influenza Virus 2017-04-12 Completed [facility]it y of Vaccine Quad IM 3+ 00:00:00 [facility] Influenza Virus 2017-04-12 Completed [facility]it y of Vaccine Quad IM 3+ 00:00:00 [facility] Influenza Virus 2017-04-12 Completed [facility]it y of Vaccine Quad IM 3+ 00:00:00 [facility] Influenza Virus 2017-04-12 Completed [facility]it y of Vaccine Quad IM 3+ 00:00:00 [facility] Influenza Virus 2017-04-12 Completed [facility]it y of Vaccine Quad IM 3+ 00:00:00 [facility] Influenza Virus 2017-04-12 Completed [facility]it y of Vaccine Quad IM 3+ 00:00:00 [facility] Influenza Virus 2017-04-12 Completed [facility]it y of Vaccine Quad IM 3+ 00:00:00 [facility] Influenza Virus 2017-04-12 Completed [facility]it y of Vaccine Quad IM 3+ 00:00:00 [facility] Influenza Virus 2017-04-12 Completed [facility]it y of Vaccine Quad IM 3+ 00:00:00 [facility] Influenza Virus 2017-04-12 Completed [facility]it y of Vaccine Quad IM 3+ 00:00:00 [facility] HPV9 2017-02-01 Completed University of 00:00:00 [facility] HPV9 2017-02-01 Completed University of 00:00:00 [facility] HPV9 2017-02-01 Completed University of 00:00:00 [facility] HPV9 2017-02-01 Completed University of 00:00:00 [facility] HPV9 2017-02-01 Completed University of 00:00:00 [facility] HPV9 2017-02-01 Completed University of 00:00:00 [facility] HPV9 2017-02-01 Completed University of 00:00:00 [facility] HPV9 2017-02-01 Completed University of 00:00:00 [facility] HPV9 2017-02-01 Completed University of 00:00:00 [facility] HPV9 2017-02-01 Completed University of 00:00:00 [facility] HPV9 2017-02-01 Completed University of 00:00:00 [facility] HPV9 2017-02-01 Completed University of 00:00:00 [facility] HPV9 2017-02-01 Completed University of 00:00:00 [facility] HPV9 2017-02-01 Completed University of 00:00:00 [facility] HPV9 2017-02-01 Completed University of 00:00:00 [facility] HPV9 2017-02-01 Completed University of 00:00:00 [facility] HPV9 2017-02-01 Completed University of 00:00:00 [facility] HPV9 2017-02-01 Completed University of 00:00:00 [facility] HPV9 2017-02-01 Completed [facility] of 00:00:00 [facility] HPV9 2017-02-01 Completed University of 00:00:00 [facility] HPV9 2017-02-01 Completed University of 00:00:00 [facility] HPV9 2017-02-01 Completed University of 00:00:00 [facility] HPV9 2017-02-01 Completed University of 00:00:00 [facility] HPV9 2017-02-01 Completed University of 00:00:00 [facility] HPV9 2017-02-01 Completed University of 00:00:00 [facility] HPV9 2017-02-01 Completed [facility] of 00:00:00 [facility] HPV9 2017-02-01 Completed University of 00:00:00 [facility] HPV9 2017-02-01 Completed [facility] 00:00:00 [facility] [facility] HPV9 2017-02-01 Completed [facility] 00:00:00 [facility] HPV9 2017-02-01 Completed [facility] 00:00:00 [facility] HPV9 2017-02-01 Completed [facility] 00:00:00 [facility] HPV9 2017-02-01 Completed [facility] 00:00:00 [facility] HPV9 2017-02-01 Completed [facility] 00:00:00 [facility] HPV9 2017-02-01 Completed [facility] 00:00:00 [facility] HPV9 2017-02-01 Completed [facility] 00:00:00 [facility] HPV9 2017-02-01 Completed [facility] 00:00:00 [facility] HPV9 2017-02-01 Completed [facility] 00:00:00 [facility] HPV9 2017-02-01 Completed [facility] 00:00:00 [facility] HPV9 2017-02-01 Completed [facility] 00:00:00 [facility] HPV9 2017-02-01 Completed [facility] 00:00:00 [facility] HPV9 2017-02-01 Completed [facility] 00:00:00 [facility] HPV9 2017-02-01 Completed [facility] 00:00:00 [facility] HPV9 2017-02-01 Completed [facility] 00:00:00 [facility] HPV9 2017-02-01 Completed [facility] 00:00:00 [facility] HPV9 2017-02-01 Completed [facility] 00:00:00 [facility] HPV9 2017-02-01 Completed [facility] 00:00:00 [facility] HPV9 2017-02-01 Completed [facility] 00:00:00 [facility] HPV9 2017-02-01 Completed [facility] 00:00:00 [facility] HPV 2016-01-20 Completed [facility] 00[facility]00:00 [facility] HPV 2016-01-20 Completed [facility] 00:00:00 [facility] HPV 2016-01-20 Completed [facility] 00:00:00 [facility] HPV 2016-01-20 Completed [facility] 00:00:00 [facility] HPV 2016-01-20 Completed [facility] 00[facility]00:00 [facility] HPV 2016-01-20 Completed [facility] 00:00:00 [facility] HPV 2016-01-20 Completed [facility] 00:00:00 [facility] HPV 2016-01-20 Completed [facility] 00:00:00 [facility] HPV 2016-01-20 Completed [facility] 00:00:00 [facility] HPV 2016-01-20 Completed [facility] 00:00:00 [facility] HPV 2016-01-20 Completed [facility] 00:00:00 [facility] HPV 2016-01-20 Completed [facility] 00:00:00 [facility] HPV 2016-01-20 Completed [facility] 00:00:00 [facility] HPV 2016-01-20 Completed [facility] 00:00:00 [facility] HPV 2016-01-20 Completed [facility] 00:00:00 [facility] HPV 2016-01-20 Completed [facility] 00:00:00 [facility] HPV 2016-01-20 Completed [facility] 00:00:00 [facility] HPV 2016-01-20 Completed [facility] 00:00:00 [facility] HPV 2016-01-20 Completed [facility] 00:00:00 [facility] HPV 2016-01-20 Completed [facility] 00:00:00 [facility] HPV 2016-01-20 Completed [facility] 00:00:00 [facility] HPV 2016-01-20 Completed [facility] 00:00:00 [facility] HPV 2016-01-20 Completed [facility] 00:00:00 [facility] HPV 2016-01-20 Completed [facility] 00:00:00 [facility] HPV 2016-01-20 Completed [facility] 00:00:00 [facility] HPV 2016-01-20 Completed [facility] 00:00:00 [facility] HPV 2016-01-20 Completed [facility] 00:00:00 [facility] HPV 2016-01-20 Completed [facility] 00:00:00 [facility] HPV 2016-01-20 Completed [facility] 00:00:00 [facility] HPV 2016-01-20 Completed [facility] 00:00:00 [facility] HPV 2016-01-20 Completed [facility] 00:00:00 [facility] HPV 2016-01-20 Completed [facility] 00:00:00 [facility] HPV 2016-01-20 Completed [facility] 00:00:00 [facility] HPV 2016-01-20 Completed [facility] 00:00:00 [facility] HPV 2016-01-20 Completed [facility] 00:00:00 [facility] HPV 2016-01-20 Completed [facility] 00:00:00 [facility] HPV 2016-01-20 Completed [facility] 00:00:00 [facility] HPV 2016-01-20 Completed [facility] 00:00:00 [facility] HPV 2016-01-20 Completed [facility] 00:00:00 [facility] HPV 2016-01-20 Completed [facility] 00:00:00 [facility] HPV 2016-01-20 Completed [facility] 00:00:00 [facility] HPV 2016-01-20 Completed [facility] 00:00:00 [facility] HPV 2016-01-20 Completed [facility] 00:00:00 [facility] HPV 2016-01-20 Completed [facility] 00:00:00 [facility] HPV 2016-01-20 Completed [facility] 00:00:00 [facility] HPV 2016-01-20 Completed [facility] 00:00:00 [facility] HPV 2016-01-20 Completed [facility] 00:00:00 [facility] HPV 2016-01-20 Completed [facility] 00:00:00 [facility] Influenza Virus 2015-07-08 Completed [facility] Vaccine Quad IM 3+ 00:00:00 [facility] HPV9 2015-07-08 Completed [facility] 00:00:00 [facility] Influenza Virus 2015-07-08 Completed [facility] y of Vaccine Quad IM 3+ 00:00:00 [facility] HPV9 2015-07-08 Completed [facility] 00:00:00 [facility] Influenza Virus 2015-07-08 Completed [facility] of Vaccine Quad IM 3+ 00:00:00 [facility] HPV9 2015-07-08 Completed [facility] 00:00:00 [facility] Influenza Virus 2015-07-08 Completed [facility] of Vaccine Quad IM 3+ 00:00:00 [facility] HPV9 2015-07-08 Completed [facility] 00:00:00 [facility] Influenza Virus 2015-07-08 Completed [facility] y of Vaccine Quad IM 3+ 00:00:00 [facility] HPV9 2015-07-08 Completed [facility] 00:00:00 [facility] Influenza Virus 2015-07-08 Completed [facility] of Vaccine Quad IM 3+ 00:00:00 [facility] HPV9 2015-07-08 Completed [facility] 00:00:00 [facility] Influenza Virus 2015-07-08 Completed [facility] of Vaccine Quad IM 3+ 00:00:00 [facility] HPV9 2015-07-08 Completed [facility] 00:00:00 [facility] Influenza Virus 2015-07-08 Completed [facility] y of Vaccine Quad IM 3+ 00:00:00 [facility] HPV9 2015-07-08 Completed [facility] 00:00:00 [facility] Influenza Virus 2015-07-08 Completed [facility] of Vaccine Quad IM 3+ 00:00:00 [facility] HPV9 2015-07-08 Completed [facility] 00:00:00 [facility] Influenza Virus 2015-07-08 Completed [facility] of Vaccine Quad IM 3+ 00:00:00 [facility] HPV9 2015-07-08 Completed [facility] 00:00:00 [facility] Influenza Virus 2015-07-08 Completed [facility] of Vaccine Quad IM 3+ 00:00:00 [facility] HPV9 2015-07-08 Completed [facility] 00:00:00 [facility] Influenza Virus 2015-07-08 Completed [facility] of Vaccine Quad IM 3+ 00:00:00 [facility] HPV9 2015-07-08 Completed [facility] 00[facility]00:00 [facility] Influenza Virus 2015-07-08 Completed [facility] of Vaccine Quad IM 3+ 00:00:00 [facility] HPV9 2015-07-08 Completed [facility] 00:00:00 [facility] Influenza Virus 2015-07-08 Completed [facility] of Vaccine Quad IM 3+ 00:00:00 [facility] HPV9 2015-07-08 Completed [facility] 00[facility]00:00 [facility] Influenza Virus 2015-07-08 Completed [facility] y of Vaccine Quad IM 3+ 00:00:00 [facility] HPV9 2015-07-08 Completed [facility] 00:00:00 [facility] Influenza Virus 2015-07-08 Completed [facility] of Vaccine Quad IM 3+ 00:00:00 [facility] HPV9 2015-07-08 Completed [facility] 00[facility]00:00 [facility] Influenza Virus 2015-07-08 Completed [facility] of Vaccine Quad IM 3+ 00:00:00 [facility] HPV9 2015-07-08 Completed [facility] 00:00:00 [facility] Influenza Virus 2015-07-08 Completed [facility] of Vaccine Quad IM 3+ 00:00:00 [facility] HPV9 2015-07-08 Completed [facility] 00:00:00 [facility] Influenza Virus 2015-07-08 Completed [facility] y of Vaccine Quad IM 3+ 00:00:00 [facility] HPV9 2015-07-08 Completed [facility] 00:00:00 [facility] Influenza Virus 2015-07-08 Completed [facility] y of Vaccine Quad IM 3+ 00:00:00 [facility] HPV9 2015-07-08 Completed [facility] 00:00:00 [facility] Influenza Virus 2015-07-08 Completed [facility] of Vaccine Quad IM 3+ 00:00:00 [facility] HPV9 2015-07-08 Completed [facility] 00:00:00 [facility] Influenza Virus 2015-07-08 Completed [facility] of Vaccine Quad IM 3+ 00:00:00 [facility] HPV9 2015-07-08 Completed [facility] 00:00:00 [facility] Influenza Virus 2015-07-08 Completed [facility] of Vaccine Quad IM 3+ 00:00:00 [facility] HPV9 2015-07-08 Completed [facility] 00:00:00 [facility] Influenza Virus 2015-07-08 Completed [facility] of Vaccine Quad IM 3+ 00:00:00 [facility] HPV9 2015-07-08 Completed [facility] 00:00:00 [facility] Influenza Virus 2015-07-08 Completed [facility] of Vaccine Quad IM 3+ 00:00:00 [facility] HPV9 2015-07-08 Completed [facility] 00:00:00 [facility] Influenza Virus 2015-07-08 Completed [facility] of Vaccine Quad IM 3+ 00:00:00 [facility] HPV9 2015-07-08 Completed [facility] 00:00:00 [facility] Influenza Virus 2015-07-08 Completed [facility] of Vaccine Quad IM 3+ 00:00:00 [facility] HPV9 2015-07-08 Completed [facility] 00[facility]00:00 [facility] Influenza Virus 2015-07-08 Completed [facility] y of Vaccine Quad IM 3+ 00:00:00 [facility] HPV9 2015-07-08 Completed [facility] 00:00:00 [facility] Influenza Virus 2015-07-08 Completed [facility] of Vaccine Quad IM 3+ 00:00:00 [facility] HPV9 2015-07-08 Completed [facility] 00:00:00 [facility] Influenza Virus 2015-07-08 Completed [facility] of Vaccine Quad IM 3+ 00:00:00 [facility] HPV9 2015-07-08 Completed [facility] 00:00:00 [facility] Influenza Virus 2015-07-08 Completed [facility] y of Vaccine Quad IM 3+ 00:00:00 [facility] HPV9 2015-07-08 Completed [facility] 00:00:00 [facility] Influenza Virus 2015-07-08 Completed [facility] of Vaccine Quad IM 3+ 00:00:00 [facility] HPV9 2015-07-08 Completed [facility] 00:00:00 [facility] Influenza Virus 2015-07-08 Completed [facility] of Vaccine Quad IM 3+ 00:00:00 [facility] HPV9 2015-07-08 Completed [facility] 00:00:00 [facility] Influenza Virus 2015-07-08 Completed [facility] y of Vaccine Quad IM 3+ 00:00:00 [facility] HPV9 2015-07-08 Completed [facility] 00:00:00 [facility] Influenza Virus 2015-07-08 Completed [facility] of Vaccine Quad IM 3+ 00:00:00 [facility] HPV9 2015-07-08 Completed [facility] 00:00:00 [facility] Influenza Virus 2015-07-08 Completed [facility] of Vaccine Quad IM 3+ 00:00:00 [facility] HPV9 2015-07-08 Completed [facility] 00:00:00 [facility] Influenza Virus 2015-07-08 Completed [facility] of Vaccine Quad IM 3+ 00:00:00 [facility] HPV9 2015-07-08 Completed [facility] 00:00:00 [facility] Influenza Virus 2015-07-08 Completed [facility] of Vaccine Quad IM 3+ 00:00:00 [facility] HPV9 2015-07-08 Completed [facility] 00:00:00 [facility] Influenza Virus 2015-07-08 Completed [facility] y of Vaccine Quad IM 3+ 00:00:00 [facility] HPV9 2015-07-08 Completed [facility] 00:00:00 [facility] Influenza Virus 2015-07-08 Completed [facility] y of Vaccine Quad IM 3+ 00:00:00 [facility] HPV9 2015-07-08 Completed [facility] 00:00:00 [facility] Influenza Virus 2015-07-08 Completed [facility] y of Vaccine Quad IM 3+ 00:00:00 [facility] HPV9 2015-07-08 Completed [facility] 00:00:00 [facility] Influenza Virus 2015-07-08 Completed [facility] y of Vaccine Quad IM 3+ 00:00:00 [facility] HPV9 2015-07-08 Completed [facility] 00:00:00 [facility] Influenza Virus 2015-07-08 Completed [facility] of Vaccine Quad IM 3+ 00:00:00 [facility] HPV9 2015-07-08 Completed [facility] 00:00:00 [facility] Influenza Virus 2015-07-08 Completed [facility] y of Vaccine Quad IM 3+ 00:00:00 [facility] HPV9 2015-07-08 Completed [facility] 00:00:00 [facility] Influenza Virus 2015-07-08 Completed [facility] of Vaccine Quad IM 3+ 00:00:00 [facility] HPV9 2015-07-08 Completed [facility] 00:00:00 [facility] Influenza Virus 2015-07-08 Completed [facility] of Vaccine Quad IM 3+ 00:00:00 [facility] HPV9 2015-07-08 Completed [facility] 00:00:00 [facility] Influenza Virus 2015-07-08 Completed [facility] y of Vaccine Quad IM 3+ 00:00:00 [facility] HPV9 2015-07-08 Completed [facility] 00:00:00 [facility] Influenza Virus 2015-07-08 Completed [facility] of Vaccine Quad IM 3+ 00:00:00 [facility] HPV9 2015-07-08 Completed [facility] 00:00:00 [facility] Influenza Virus 2014-04-02 Completed [facility] y of Vaccine (3+ yrs) 00:00:00 [facility] Influenza Virus 2014-04-02 Completed [facility] y of Vaccine (3+ yrs) 00:00:00 [facility] Influenza Virus 2014-04-02 Completed [facility] y of Vaccine (3+ yrs) 00:00:00 [facility] Influenza Virus 2014-04-02 Completed [facility] y of Vaccine (3+ yrs) 00:00:00 [facility] Influenza Virus 2014-04-02 Completed [facility] y of Vaccine (3+ yrs) 00:00:00 [facility] Influenza Virus 2014-04-02 Completed [facility] of Vaccine (3+ yrs) 00:00:00 [facility] Influenza Virus 2014-04-02 Completed [facility] of Vaccine (3+ yrs) 00:00:00 [facility] Influenza Virus 2014-04-02 Completed [facility] of Vaccine (3+ yrs) 00:00:00 [facility] Influenza Virus 2014-04-02 Completed [facility] of Vaccine (3+ yrs) 00:00:00 [facility] Influenza Virus 2014-04-02 Completed [facility] of Vaccine (3+ yrs) 00:00:00 [facility] Influenza Virus 2014-04-02 Completed [facility] of Vaccine (3+ yrs) 00:00:00 [facility] Influenza Virus 2014-04-02 Completed [facility] of Vaccine (3+ yrs) 00:00:00 [facility] Influenza Virus 2014-04-02 Completed [facility] of Vaccine (3+ yrs) 00:00:00 [facility] Influenza Virus 2014-04-02 Completed [facility] of Vaccine (3+ yrs) 00:00:00 [facility] Influenza Virus 2014-04-02 Completed [facility] Vaccine (3+ yrs) 00:00:00 [facility] Influenza Virus 2014-04-02 Completed [facility] of Vaccine (3+ yrs) 00:00:00 [facility] Influenza Virus 2014-04-02 Completed [facility] of Vaccine (3+ yrs) 00:00:00 [facility] Influenza Virus 2014-04-02 Completed [facility] Vaccine (3+ yrs) 00:00:00 [facility] Influenza Virus 2014-04-02 Completed [facility] Vaccine (3+ yrs) 00:00:00 [facility] Influenza Virus 2014-04-02 Completed [facility] of Vaccine (3+ yrs) 00:00:00 [facility] Influenza Virus 2014-04-02 Completed [facility] of Vaccine (3+ yrs) 00:00:00 [facility] Influenza Virus 2014-04-02 Completed [facility] of Vaccine (3+ yrs) 00:00:00 [facility] Influenza Virus 2014-04-02 Completed [facility] of Vaccine (3+ yrs) 00:00:00 [facility] Influenza Virus 2014-04-02 Completed [facility] of Vaccine (3+ yrs) 00:00:00 [facility] Influenza Virus 2014-04-02 Completed [facility] of Vaccine (3+ yrs) 00:00:00 [facility] Influenza Virus 2014-04-02 Completed [facility] of Vaccine (3+ yrs) 00:00:00 [facility] Influenza Virus 2014-04-02 Completed [facility] of Vaccine (3+ yrs) 00:00:00 [facility] Influenza Virus 2014-04-02 Completed [facility] of Vaccine (3+ yrs) 00:00:00 [facility] Influenza Virus 2014-04-02 Completed [facility] Vaccine (3+ yrs) 00:00:00 [facility] Influenza Virus 2014-04-02 Completed [facility] Vaccine (3+ yrs) 00:00:00 [facility] Influenza Virus 2014-04-02 Completed [facility] Vaccine (3+ yrs) 00:00:00 [facility] Influenza Virus 2014-04-02 Completed [facility] Vaccine (3+ yrs) 00:00:00 [facility] Influenza Virus 2014-04-02 Completed [facility] Vaccine (3+ yrs) 00:00:00 [facility] Influenza Virus 2014-04-02 Completed [facility] of Vaccine (3+ yrs) 00:00:00 [facility] Influenza Virus 2014-04-02 Completed [facility] Vaccine (3+ yrs) 00:00:00 [facility] Influenza Virus 2014-04-02 Completed [facility] of Vaccine (3+ yrs) 00:00:00 [facility] Influenza Virus 2014-04-02 Completed [facility] Vaccine (3+ yrs) 00:00:00 [facility] Influenza Virus 2014-04-02 Completed [facility] of Vaccine (3+ yrs) 00:00:00 [facility] Influenza Virus 2014-04-02 Completed [facility] Vaccine (3+ yrs) 00:00:00 [facility] Influenza Virus 2014-04-02 Completed [facility] Vaccine (3+ yrs) 00:00:00 [facility] Influenza Virus 2014-04-02 Completed [facility] Vaccine (3+ yrs) 00:00:00 [facility] Influenza Virus 2014-04-02 Completed [facility] Vaccine (3+ yrs) 00:00:00 [facility] Influenza Virus 2014-04-02 Completed [facility] Vaccine (3+ yrs) 00:00:00 [facility] Influenza Virus 2014-04-02 Completed [facility] Vaccine (3+ yrs) 00:00:00 [facility] Influenza Virus 2014-04-02 Completed [facility] Vaccine (3+ yrs) 00:00:00 [facility] Influenza Virus 2014-04-02 Completed [facility] Vaccine (3+ yrs) 00:00:00 [facility] Influenza Virus 2014-04-02 Completed [facility] Vaccine (3+ yrs) 00:00:00 [facility] Influenza Virus 2014-04-02 Completed [facility] Vaccine (3+ yrs) 00:00:00 [facility] Influenza Virus 2013-05-22 Completed [facility] Vaccine (3+ yrs) 00:00:00 [facility] Meningococcal 2013-05-22 Completed [facility] Polysaccharide 00:00:00 [facility] (groups A, C, Y and Branc h W-135) conjugate vaccine (MCV4P) TDAP 2013-05-22 Completed [facility] 00:00:00 [facility] Influenza Virus 2013-05-22 Completed [facility] of Vaccine (3+ yrs) 00:00:00 [facility] Meningococcal 2013-05-22 Completed [facility] Polysaccharide 00:00:00 [facility] (groups A, C, Y and Branc h W-135) conjugate vaccine (MCV4P) TDAP 2013-05-22 Completed [facility] 00:00:00 [facility] Influenza Virus 2013-05-22 Completed [facility] of Vaccine (3+ yrs) 00:00:00 [facility] Meningococcal 2013-05-22 Completed [facility] Polysaccharide 00:00:00 [facility] (groups A, C, Y and Branc h W-135) conjugate vaccine (MCV4P) TDAP 2013-05-22 Completed [facility] 00:00:00 [facility] Influenza Virus 2013-05-22 Completed [facility] of Vaccine (3+ yrs) 00:00:00 [facility] Meningococcal 2013-05-22 Completed [facility] Polysaccharide 00:00:00 [facility] (groups A, C, Y and Branc h W-135) conjugate vaccine (MCV4P) TDAP 2013-05-22 Completed [facility] 00:00:00 [facility] Influenza Virus 2013-05-22 Completed [facility] Vaccine (3+ yrs) 00:00:00 [facility] Meningococcal 2013-05-22 Completed [facility] Polysaccharide 00:00:00 [facility] (groups A, C, Y and Branc h W-135) conjugate vaccine (MCV4P) TDAP 2013-05-22 Completed [facility] 00:00:00 [facility] Influenza Virus 2013-05-22 Completed [facility] Vaccine (3+ yrs) 00:00:00 [facility] Meningococcal 2013-05-22 Completed [facility] Polysaccharide 00:00:00 [facility] (groups A, C, Y and Branc h W-135) conjugate vaccine (MCV4P) TDAP 2013-05-22 Completed [facility] 00:00:00 [facility] Influenza Virus 2013-05-22 Completed [facility] Vaccine (3+ yrs) 00:00:00 [facility] Meningococcal 2013-05-22 Completed [facility] Polysaccharide 00:00:00 [facility] (groups A, C, Y and Branc h W-135) conjugate vaccine (MCV4P) TDAP 2013-05-22 Completed [facility] 00:00:00 [facility] Influenza Virus 2013-05-22 Completed [facility] Vaccine (3+ yrs) 00:00:00 [facility] Meningococcal 2013-05-22 Completed [facility] Polysaccharide 00:00:00 [facility] (groups A, C, Y and Branc h W-135) conjugate vaccine (MCV4P) TDAP 2013-05-22 Completed [facility] 00:00:00 [facility] Influenza Virus 2013-05-22 Completed [facility] of Vaccine (3+ yrs) 00:00:00 [facility] Meningococcal 2013-05-22 Completed [facility] Polysaccharide 00:00:00 [facility] (groups A, C, Y and Branc h W-135) conjugate vaccine (MCV4P) TDAP 2013-05-22 Completed [facility] 00:00:00 [facility] Influenza Virus 2013-05-22 Completed [facility] Vaccine (3+ yrs) 00:00:00 [facility] Meningococcal 2013-05-22 Completed [facility] Polysaccharide 00:00:00 [facility] (groups A, C, Y and Branc h W-135) conjugate vaccine (MCV4P) TDAP 2013-05-22 Completed [facility] 00:00:00 [facility] Influenza Virus 2013-05-22 Completed [facility] Vaccine (3+ yrs) 00:00:00 [facility] Meningococcal 2013-05-22 Completed [facility] Polysaccharide 00:00:00 [facility] (groups A, C, Y and Branc h W-135) conjugate vaccine (MCV4P) TDAP 2013-05-22 Completed [facility] 00:00:00 [facility] Influenza Virus 2013-05-22 Completed [facility] Vaccine (3+ yrs) 00:00:00 [facility] Meningococcal 2013-05-22 Completed [facility] Polysaccharide 00:00:00 [facility] (groups A, C, Y and Branc h W-135) conjugate vaccine (MCV4P) TDAP 2013-05-22 Completed [facility] 00:00:00 [facility] Influenza Virus 2013-05-22 Completed [facility] Vaccine (3+ yrs) 00:00:00 [facility] Meningococcal 2013-05-22 Completed [facility] Polysaccharide 00:00:00 [facility] (groups A, C, Y and Branc h W-135) conjugate vaccine (MCV4P) TDAP 2013-05-22 Completed [facility] 00:00:00 [facility] Influenza Virus 2013-05-22 Completed [facility] Vaccine (3+ yrs) 00:00:00 [facility] Meningococcal 2013-05-22 Completed [facility] Polysaccharide 00:00:00 [facility] (groups A, C, Y and Branc h W-135) conjugate vaccine (MCV4P) TDAP 2013-05-22 Completed [facility] 00:00:00 [facility] Influenza Virus 2013-05-22 Completed [facility] Vaccine (3+ yrs) 00:00:00 [facility] Meningococcal 2013-05-22 Completed [facility] Polysaccharide 00:00:00 [facility] (groups A, C, Y and Branc h W-135) conjugate vaccine (MCV4P) TDAP 2013-05-22 Completed [facility] 00:00:00 [facility] Influenza Virus 2013-05-22 Completed [facility] Vaccine (3+ yrs) 00:00:00 [facility] Meningococcal 2013-05-22 Completed [facility] Polysaccharide 00:00:00 [facility] (groups A, C, Y and Branc h W-135) conjugate vaccine (MCV4P) TDAP 2013-05-22 Completed [facility] 00:00:00 [facility] Influenza Virus 2013-05-22 Completed [facility] Vaccine (3+ yrs) 00:00:00 [facility] Meningococcal 2013-05-22 Completed [facility] Polysaccharide 00:00:00 [facility] (groups A, C, Y and Branc h W-135) conjugate vaccine (MCV4P) TDAP 2013-05-22 Completed [facility] 00:00:00 [facility] Influenza Virus 2013-05-22 Completed [facility] Vaccine (3+ yrs) 00:00:00 [facility] Meningococcal 2013-05-22 Completed [facility] Polysaccharide 00:00:00 [facility] (groups A, C, Y and Branc h W-135) conjugate vaccine (MCV4P) TDAP 2013-05-22 Completed [facility] 00:00:00 [facility] Influenza Virus 2013-05-22 Completed [facility] Vaccine (3+ yrs) 00:00:00 [facility] Meningococcal 2013-05-22 Completed [facility] Polysaccharide 00:00:00 [facility] (groups A, C, Y and Branc h W-135) conjugate vaccine (MCV4P) TDAP 2013-05-22 Completed [facility] 00:00:00 [facility] Influenza Virus 2013-05-22 Completed [facility] Vaccine (3+ yrs) 00:00:00 [facility] Meningococcal 2013-05-22 Completed [facility] Polysaccharide 00:00:00 [facility] (groups A, C, Y and Branc h W-135) conjugate vaccine (MCV4P) TDAP 2013-05-22 Completed [facility] 00:00:00 [facility] Influenza Virus 2013-05-22 Completed [facility] Vaccine (3+ yrs) 00:00:00 [facility] Meningococcal 2013-05-22 Completed [facility] Polysaccharide 00:00:00 [facility] (groups A, C, Y and Branc h W-135) conjugate vaccine (MCV4P) TDAP 2013-05-22 Completed [facility] 00:00:00 [facility] Influenza Virus 2013-05-22 Completed [facility] Vaccine (3+ yrs) 00:00:00 [facility] Meningococcal 2013-05-22 Completed [facility] Polysaccharide 00:00:00 [facility] (groups A, C, Y and Branc h W-135) conjugate vaccine (MCV4P) TDAP 2013-05-22 Completed [facility] 00:00:00 [facility] Influenza Virus 2013-05-22 Completed [facility] Vaccine (3+ yrs) 00:00:00 [facility] Meningococcal 2013-05-22 Completed [facility] Polysaccharide 00:00:00 [facility] (groups A, C, Y and Branc h W-135) conjugate vaccine (MCV4P) TDAP 2013-05-22 Completed [facility] 00:00:00 [facility] Influenza Virus 2013-05-22 Completed [facility] Vaccine (3+ yrs) 00:00:00 [facility] Meningococcal 2013-05-22 Completed [facility] Polysaccharide 00:00:00 [facility] (groups A, C, Y and Branc h W-135) conjugate vaccine (MCV4P) TDAP 2013-05-22 Completed [facility] 00:00:00 [facility] Influenza Virus 2013-05-22 Completed [facility] Vaccine (3+ yrs) 00:00:00 [facility] Meningococcal 2013-05-22 Completed [facility] Polysaccharide 00:00:00 [facility] (groups A, C, Y and Branc h W-135) conjugate vaccine (MCV4P) TDAP 2013-05-22 Completed [facility] 00:00:00 [facility] Influenza Virus 2013-05-22 Completed [facility] Vaccine (3+ yrs) 00:00:00 [facility] Meningococcal 2013-05-22 Completed [facility] Polysaccharide 00:00:00 [facility] (groups A, C, Y and Branc h W-135) conjugate vaccine (MCV4P) TDAP 2013-05-22 Completed [facility] 00:00:00 [facility] Influenza Virus 2013-05-22 Completed [facility] Vaccine (3+ yrs) 00:00:00 [facility] Meningococcal 2013-05-22 Completed [facility] Polysaccharide 00:00:00 [facility] (groups A, C, Y and Branc h W-135) conjugate vaccine (MCV4P) TDAP 2013-05-22 Completed [facility] 00:00:00 [facility] Influenza Virus 2013-05-22 Completed [facility] Vaccine (3+ yrs) 00:00:00 [facility] Meningococcal 2013-05-22 Completed [facility] Polysaccharide 00:00:00 [facility] (groups A, C, Y and Branc h W-135) conjugate vaccine (MCV4P) TDAP 2013-05-22 Completed [facility] 00:00:00 [facility] Influenza Virus 2013-05-22 Completed [facility] Vaccine (3+ yrs) 00:00:00 [facility] Meningococcal 2013-05-22 Completed [facility] Polysaccharide 00:00:00 [facility] (groups A, C, Y and Branc h W-135) conjugate vaccine (MCV4P) TDAP 2013-05-22 Completed [facility] 00:00:00 [facility] Influenza Virus 2013-05-22 Completed [facility] Vaccine (3+ yrs) 00:00:00 [facility] Meningococcal 2013-05-22 Completed [facility] Polysaccharide 00:00:00 [facility] (groups A, C, Y and Branc h W-135) conjugate vaccine (MCV4P) TDAP 2013-05-22 Completed [facility] 00:00:00 [facility] Influenza Virus 2013-05-22 Completed [facility] Vaccine (3+ yrs) 00:00:00 [facility] Meningococcal 2013-05-22 Completed [facility] Polysaccharide 00:00:00 [facility] (groups A, C, Y and Branc h W-135) conjugate vaccine (MCV4P) TDAP 2013-05-22 Completed [facility] 00:00:00 [facility] Influenza Virus 2013-05-22 Completed [facility] Vaccine (3+ yrs) 00:00:00 [facility] Meningococcal 2013-05-22 Completed [facility] Polysaccharide 00:00:00 [facility] (groups A, C, Y and Branc h W-135) conjugate vaccine (MCV4P) TDAP 2013-05-22 Completed [facility] 00:00:00 [facility] Influenza Virus 2013-05-22 Completed [facility] Vaccine (3+ yrs) 00:00:00 [facility] Meningococcal 2013-05-22 Completed [facility] Polysaccharide 00:00:00 [facility] (groups A, C, Y and Branc h W-135) conjugate vaccine (MCV4P) TDAP 2013-05-22 Completed [facility] 00:00:00 [facility] Influenza Virus 2013-05-22 Completed [facility] Vaccine (3+ yrs) 00:00:00 [facility] Meningococcal 2013-05-22 Completed [facility] Polysaccharide 00:00:00 [facility] (groups A, C, Y and Branc h W-135) conjugate vaccine (MCV4P) TDAP 2013-05-22 Completed [facility] 00:00:00 [facility] Influenza Virus 2013-05-22 Completed [facility] Vaccine (3+ yrs) 00:00:00 [facility] Meningococcal 2013-05-22 Completed [facility] Polysaccharide 00:00:00 [facility] [place] [facility] (groups A, C, Y and Branc h W-135) conjugate vaccine (MCV4P) TDAP 2013-05-22 Completed [facility] 00:00:00 [facility] Influenza Virus 2013-05-22 Completed [facility] Vaccine (3+ yrs) 00:00:00 [facility] Meningococcal 2013-05-22 Completed [facility] Polysaccharide 00:00:00 [facility] (groups A, C, Y and Branc h W-135) conjugate vaccine (MCV4P) TDAP 2013-05-22 Completed [facility] 00:00:00 [facility] Influenza Virus 2013-05-22 Completed [facility] Vaccine (3+ yrs) 00:00:00 [facility] Meningococcal 2013-05-22 Completed [facility] Polysaccharide 00:00:00 [facility] (groups A, C, Y and Branc h W-135) conjugate vaccine (MCV4P) TDAP 2013-05-22 Completed [facility] 00:00:00 [facility] Influenza Virus 2013-05-22 Completed [facility] Vaccine (3+ yrs) 00:00:00 [facility] Meningococcal 2013-05-22 Completed [facility] Polysaccharide 00:00:00 [facility] (groups A, C, Y and Branc h W-135) conjugate vaccine (MCV4P) TDAP 2013-05-22 Completed [facility] 00:00:00 [facility] Influenza Virus 2013-05-22 Completed [facility] Vaccine (3+ yrs) 00:00:00 [facility] Meningococcal 2013-05-22 Completed [facility] Polysaccharide 00:00:00 [facility] [place] [facility] (groups A, C, Y and Branc h W-135) conjugate vaccine (MCV4P) TDAP 2013-05-22 Completed [facility] 00:00:00 [facility] Influenza Virus 2013-05-22 Completed [facility] Vaccine (3+ yrs) 00:00:00 [facility] Meningococcal 2013-05-22 Completed [facility] Polysaccharide 00:00:00 [place] [facility] (groups A, C, Y and Branc h W-135) conjugate vaccine (MCV4P) TDAP 2013-05-22 Completed [facility] 00:00:00 [facility] Influenza Virus 2013-05-22 Completed [facility] Vaccine (3+ yrs) 00:00:00 [facility] Meningococcal 2013-05-22 Completed [facility] Polysaccharide 00:00:00 [facility] (groups A, C, Y and Branc h W-135) conjugate vaccine (MCV4P) TDAP 2013-05-22 Completed [facility] 00:00:00 [facility] Influenza Virus 2013-05-22 Completed [facility] Vaccine (3+ yrs) 00:00:00 [facility] Meningococcal 2013-05-22 Completed [facility] Polysaccharide 00:00:00 [facility] (groups A, C, Y and Branc h W-135) conjugate vaccine (MCV4P) TDAP 2013-05-22 Completed [facility] 00:00:00 [facility] Influenza Virus 2013-05-22 Completed [facility] Vaccine (3+ yrs) 00:00:00 [facility] Meningococcal 2013-05-22 Completed [facility] Polysaccharide 00:00:00 [facility] (groups A, C, Y and Branc h W-135) conjugate vaccine (MCV4P) TDAP 2013-05-22 Completed [facility] 00:00:00 [facility] Influenza Virus 2013-05-22 Completed [facility] Vaccine (3+ yrs) 00:00:00 [facility] Meningococcal 2013-05-22 Completed [facility] Polysaccharide 00:00:00 [facility] (groups A, C, Y and Branc h W-135) conjugate vaccine (MCV4P) TDAP 2013-05-22 Completed [facility] 00:00:00 [facility] Influenza Virus 2013-05-22 Completed [facility] Vaccine (3+ yrs) 00:00:00 [facility] Meningococcal 2013-05-22 Completed [facility] Polysaccharide 00:00:00 [facility] (groups A, C, Y and Branc h W-135) conjugate vaccine (MCV4P) TDAP 2013-05-22 Completed [facility] 00:00:00 [facility] Influenza Virus 2013-05-22 Completed [facility] Vaccine (3+ yrs) 00:00:00 [facility] Meningococcal 2013-05-22 Completed [facility] Polysaccharide 00:00:00 [facility] [place] [facility] (groups A, C, Y and Branc h W-135) conjugate vaccine (MCV4P) TDAP 2013-05-22 Completed [facility] 00:00:00 [facility] Influenza Virus 2013-05-22 Completed [facility] Vaccine (3+ yrs) 00:00:00 [facility] Meningococcal 2013-05-22 Completed [facility] Polysaccharide 00:00:00 [facility] [place] [facility] (groups A, C, Y and Branc h W-135) conjugate vaccine (MCV4P) TDAP 2013-05-22 Completed [facility] 00:00:00 [facility] Influenza Virus 2013-05-22 Completed [facility] Vaccine (3+ yrs) 00:00:00 [facility] Meningococcal 2013-05-22 Completed [facility] Polysaccharide 00:00:00 [facility] (groups A, C, Y and Branc h W-135) conjugate vaccine (MCV4P) TDAP 2013-05-22 Completed [facility] 00:00:00 [facility] Influenza Virus 2012-06-13 Completed [facility] Vaccine 00:00:00 [facility] Influenza Virus 2012-06-13 Completed [facility] Vaccine 00:00:00 [facility] Influenza Virus 2012-06-13 Completed [facility] Vaccine 00:00:00 [facility] Influenza Virus 2012-06-13 Completed [facility] Vaccine 00:00:00 [facility] Influenza Virus 2012-06-13 Completed [facility] Vaccine 00:00:00 [facility] Influenza Virus 2012-06-13 Completed [facility] Vaccine 00:00:00 [facility] Influenza Virus 2012-06-13 Completed [facility] Vaccine 00:00:00 [facility] Influenza Virus 2012-06-13 Completed [facility] Vaccine 00:00:00 [facility] Influenza Virus 2012-06-13 Completed [facility] Vaccine 00:00:00 [facility] Influenza Virus 2012-06-13 Completed [facility] Vaccine 00:00:00 [facility] Influenza Virus 2012-06-13 Completed [facility] Vaccine 00:00:00 [facility] Influenza Virus 2012-06-13 Completed [facility] Vaccine 00:00:00 [facility] Influenza Virus 2012-06-13 Completed [facility] Vaccine 00:00:00 [facility] Influenza Virus 2012-06-13 Completed [facility] Vaccine 00:00:00 [facility] Influenza Virus 2012-06-13 Completed [facility] Vaccine 00:00:00 [facility] Influenza Virus 2012-06-13 Completed [facility] Vaccine 00:00:00 [facility] Influenza Virus 2012-06-13 Completed [facility] Vaccine 00:00:00 [facility] Influenza Virus 2012-06-13 Completed [facility] Vaccine 00:00:00 [facility] Influenza Virus 2012-06-13 Completed [facility] Vaccine 00:00:00 [facility] Influenza Virus 2012-06-13 Completed [facility] Vaccine 00:00:00 [facility] Influenza Virus 2012-06-13 Completed [facility] Vaccine 00:00:00 [facility] Influenza Virus 2012-06-13 Completed [facility] Vaccine 00:00:00 [facility] Influenza Virus 2012-06-13 Completed [facility] Vaccine 00:00:00 [facility] Influenza Virus 2012-06-13 Completed [facility] Vaccine 00:00:00 [facility] Influenza Virus 2012-06-13 Completed [facility] Vaccine 00:00:00 [facility] Influenza Virus 2012-06-13 Completed [facility] Vaccine 00:00:00 [facility] Influenza Virus 2012-06-13 Completed [facility] Vaccine 00:00:00 [facility] Influenza Virus 2012-06-13 Completed [facility] Vaccine 00:00:00 [facility] Influenza Virus 2012-06-13 Completed [facility] Vaccine 00:00:00 [facility] Influenza Virus 2012-06-13 Completed [facility] Vaccine 00:00:00 [facility] Influenza Virus 2012-06-13 Completed [facility] Vaccine 00:00:00 [facility] Influenza Virus 2012-06-13 Completed [facility] Vaccine 00:00:00 [facility] Influenza Virus 2012-06-13 Completed [facility] Vaccine 00:00:00 [facility] Influenza Virus 2012-06-13 Completed [facility] Vaccine 00:00:00 [facility] Influenza Virus 2012-06-13 Completed [facility] Vaccine 00:00:00 [facility] Influenza Virus 2012-06-13 Completed [facility] Vaccine 00:00:00 [facility] Influenza Virus 2012-06-13 Completed [facility] Vaccine 00:00:00 [facility] Influenza Virus 2012-06-13 Completed [facility] Vaccine 00:00:00 [facility] Influenza Virus 2012-06-13 Completed [facility] Vaccine 00:00:00 [facility] Influenza Virus 2012-06-13 Completed [facility] Vaccine 00:00:00 [facility] Influenza Virus 2012-06-13 Completed [facility] Vaccine 00:00:00 [facility] Influenza Virus 2012-06-13 Completed [facility] Vaccine 00:00:00 [facility] Influenza Virus 2012-06-13 Completed [facility] Vaccine 00:00:00 [facility] Influenza Virus 2012-06-13 Completed [facility] Vaccine 00:00:00 [facility] Influenza Virus 2012-06-13 Completed [facility] Vaccine 00:00:00 [facility] Influenza Virus 2012-06-13 Completed [facility] Vaccine 00:00:00 [facility] Influenza Virus 2012-06-13 Completed [facility] Vaccine 00:00:00 [facility] Influenza Virus 2012-06-13 Completed [facility] Vaccine 00:00:00 [facility] Influenza Virus 2011-05-18 Completed [facility] Vaccine 00:00:00 [facility] Influenza Virus 2011-05-18 Completed [facility] Vaccine 00:00:00 [facility] Influenza Virus 2011-05-18 Completed [facility] Vaccine 00:00:00 [facility] Influenza Virus 2011-05-18 Completed [facility] Vaccine 00:00:00 [facility] Influenza Virus 2011-05-18 Completed [facility] Vaccine 00:00:00 [facility] Influenza Virus 2011-05-18 Completed [facility] Vaccine 00:00:00 [facility] Influenza Virus 2011-05-18 Completed [facility] Vaccine 00:00:00 [facility] Influenza Virus 2011-05-18 Completed [facility] Vaccine 00:00:00 [facility] Influenza Virus 2011-05-18 Completed [facility] Vaccine 00:00:00 [facility] Influenza Virus 2011-05-18 Completed [facility] Vaccine 00:00:00 [facility] Influenza Virus 2011-05-18 Completed [facility] Vaccine 00:00:00 [facility] Influenza Virus 2011-05-18 Completed [facility] Vaccine 00:00:00 [facility] Influenza Virus 2011-05-18 Completed [facility] Vaccine 00:00:00 [facility] Influenza Virus 2011-05-18 Completed [facility] Vaccine 00:00:00 [facility] Influenza Virus 2011-05-18 Completed [facility] Vaccine 00:00:00 [facility] Influenza Virus 2011-05-18 Completed [facility] Vaccine 00:00:00 [facility] Influenza Virus 2011-05-18 Completed [facility] Vaccine 00:00:00 [facility] Influenza Virus 2011-05-18 Completed [facility] Vaccine 00:00:00 [facility] Influenza Virus 2011-05-18 Completed [facility] Vaccine 00:00:00 [facility] Influenza Virus 2011-05-18 Completed [facility] Vaccine 00:00:00 [facility] Influenza Virus 2011-05-18 Completed [facility] Vaccine 00:00:00 [facility] Influenza Virus 2011-05-18 Completed [facility] Vaccine 00:00:00 [facility] Influenza Virus 2011-05-18 Completed [facility] Vaccine 00:00:00 [facility] Influenza Virus 2011-05-18 Completed [facility] Vaccine 00:00:00 [facility] Influenza Virus 2011-05-18 Completed [facility] Vaccine 00:00:00 [facility] Influenza Virus 2011-05-18 Completed [facility] Vaccine 00:00:00 [facility] Influenza Virus 2011-05-18 Completed [facility] Vaccine 00:00:00 [facility] Influenza Virus 2011-05-18 Completed [facility] Vaccine 00:00:00 [facility] Influenza Virus 2011-05-18 Completed [facility] Vaccine 00:00:00 [facility] Influenza Virus 2011-05-18 Completed [facility] Vaccine 00:00:00 [facility] Influenza Virus 2011-05-18 Completed [facility] Vaccine 00:00:00 [facility] Influenza Virus 2011-05-18 Completed [facility] Vaccine 00:00:00 [facility] Influenza Virus 2011-05-18 Completed [facility] Vaccine 00:00:00 [facility] Influenza Virus 2011-05-18 Completed [facility] Vaccine 00:00:00 [facility] Influenza Virus 2011-05-18 Completed [facility] Vaccine 00:00:00 [facility] Influenza Virus 2011-05-18 Completed [facility] Vaccine 00:00:00 [facility] Influenza Virus 2011-05-18 Completed [facility] Vaccine 00:00:00 [facility] Influenza Virus 2011-05-18 Completed [facility] Vaccine 00:00:00 [facility] Influenza Virus 2011-05-18 Completed [facility] Vaccine 00:00:00 [facility] Influenza Virus 2011-05-18 Completed [facility] Vaccine 00:00:00 [facility] Influenza Virus 2011-05-18 Completed [facility] Vaccine 00:00:00 [facility] Influenza Virus 2011-05-18 Completed [facility] Vaccine 00:00:00 [facility] Influenza Virus 2011-05-18 Completed [facility] Vaccine 00:00:00 [facility] Influenza Virus 2011-05-18 Completed [facility] Vaccine 00:00:00 [facility] Influenza Virus 2011-05-18 Completed [facility] Vaccine 00:00:00 [facility] Influenza Virus 2011-05-18 Completed [facility] Vaccine 00:00:00 [facility] Influenza Virus 2011-05-18 Completed [facility] Vaccine 00:00:00 [facility] Influenza Virus 2011-05-18 Completed [facility] Vaccine 00:00:00 [facility] Influenza Virus 2010-05-26 Completed [facility] Vaccine 00:00:00 [facility] Influenza Virus 2010-05-26 Completed [facility] Vaccine 00:00:00 [facility] Influenza Virus 2010-05-26 Completed [facility]:00 [facility] [facility] Influenza Virus 2010-05-26 Completed [facility] Vaccine 00:00:00 [facility] Influenza Virus 2010-05-26 Completed [facility] Vaccine 00:00:00 [facility] Influenza Virus 2010-05-26 Completed [facility] Vaccine 00:00:00 [facility] Influenza Virus 2010-05-26 Completed [facility] Vaccine 00:00:00 [facility] Influenza Virus 2010-05-26 Completed [facility] Vaccine 00:00:00 [facility] Influenza Virus 2010-05-26 Completed [facility] Vaccine 00:00:00 [facility] Influenza Virus 2010-05-26 Completed [facility] Vaccine 00:00:00 [facility] Influenza Virus 2010-05-26 Completed [facility] Vaccine 00:00:00 [facility] Influenza Virus 2010-05-26 Completed [facility] Vaccine 00:00:00 [facility] Influenza Virus 2010-05-26 Completed [facility] Vaccine 00:00:00 [facility] Influenza Virus 2010-05-26 Completed [facility] Vaccine 00:00:00 [facility] Influenza Virus 2010-05-26 Completed [facility] Vaccine 00:00:00 [facility] Influenza Virus 2010-05-26 Completed [facility] Vaccine 00:00:00 [facility] Influenza Virus 2010-05-26 Completed [facility] Vaccine 00:00:00 [facility] Influenza Virus 2010-05-26 Completed [facility] Vaccine 00:00:00 [facility] Influenza Virus 2010-05-26 Completed [facility] Vaccine 00:00:00 [facility] Influenza Virus 2010-05-26 Completed [facility] Vaccine 00:00:00 [facility] Influenza Virus 2010-05-26 Completed [facility] Vaccine 00:00:00 [facility] Influenza Virus 2010-05-26 Completed [facility] Vaccine 00:00:00 [facility] Influenza Virus 2010-05-26 Completed [facility] Vaccine 00:00:00 [facility] Influenza Virus 2010-05-26 Completed [facility] Vaccine 00:00:00 [facility] Influenza Virus 2010-05-26 Completed [facility] Vaccine 00:00:00 [facility] Influenza Virus 2010-05-26 Completed [facility] Vaccine 00:00:00 [facility] Influenza Virus 2010-05-26 Completed [facility] Vaccine 00:00:00 [facility] Influenza Virus 2010-05-26 Completed [facility] Vaccine 00:00:00 [facility] Influenza Virus 2010-05-26 Completed [facility] Vaccine 00:00:00 [facility] Influenza Virus 2010-05-26 Completed [facility] Vaccine 00:00:00 [facility] Influenza Virus 2010-05-26 Completed [facility] Vaccine 00:00:00 [facility] Influenza Virus 2010-05-26 Completed [facility] Vaccine 00:00:00 [facility] Influenza Virus 2010-05-26 Completed [facility] Vaccine 00:00:00 [facility] Influenza Virus 2010-05-26 Completed [facility] Vaccine 00:00:00 [facility] Influenza Virus 2010-05-26 Completed [facility] Vaccine 00:00:00 [facility] Influenza Virus 2010-05-26 Completed [facility] Vaccine 00:00:00 [facility] Influenza Virus 2010-05-26 Completed [facility] Vaccine 00:00:00 [facility] Influenza Virus 2010-05-26 Completed [facility] Vaccine 00:00:00 [facility] Influenza Virus 2010-05-26 Completed [facility] Vaccine 00:00:00 [facility] Influenza Virus 2010-05-26 Completed [facility] Vaccine 00:00:00 [facility] Influenza Virus 2010-05-26 Completed [facility] Vaccine 00:00:00 [facility] Influenza Virus 2010-05-26 Completed [facility] Vaccine 00:00:00 [facility] Influenza Virus 2010-05-26 Completed [facility] Vaccine 00:00:00 [facility] Influenza Virus 2010-05-26 Completed [facility] Vaccine 00:00:00 [facility] Influenza Virus 2010-05-26 Completed [facility] Vaccine 00:00:00 [facility] Influenza Virus 2010-05-26 Completed [facility] Vaccine 00:00:00 [facility] Influenza Virus 2010-05-26 Completed [facility] Vaccine 00:00:00 [facility] Influenza Virus 2010-05-26 Completed [facility] Vaccine 00:00:00 [facility] Influenza Virus 2009-06-23 Completed [facility] Vaccine 00:00:00 [facility] Influenza Virus 2009-06-23 Completed [facility] Vaccine 00:00:00 [facility] Influenza Virus 2009-06-23 Completed [facility] Vaccine 00:00:00 [facility] Influenza Virus 2009-06-23 Completed [facility] Vaccine 00:00:00 [facility] Influenza Virus 2009-06-23 Completed [facility] Vaccine 00:00:00 [facility] Influenza Virus 2009-06-23 Completed [facility] Vaccine 00:00:00 [facility] Influenza Virus 2009-06-23 Completed [facility] Vaccine 00:00:00 [facility] Influenza Virus 2009-06-23 Completed [facility] Vaccine 00:00:00 [facility] Influenza Virus 2009-06-23 Completed [facility] Vaccine 00:00:00 [facility] Influenza Virus 2009-06-23 Completed [facility] Vaccine 00:00:00 [facility] Influenza Virus 2009-06-23 Completed [facility] Vaccine 00:00:00 [facility] Influenza Virus 2009-06-23 Completed [facility] Vaccine 00:00:00 [facility] Influenza Virus 2009-06-23 Completed [facility] Vaccine 00:00:00 [facility] Influenza Virus 2009-06-23 Completed [facility] Vaccine 00:00:00 [facility] Influenza Virus 2009-06-23 Completed [facility] Vaccine 00:00:00 [facility] Influenza Virus 2009-06-23 Completed [facility] Vaccine 00:00:00 [facility] Influenza Virus 2009-06-23 Completed [facility] Vaccine 00:00:00 [facility] Influenza Virus 2009-06-23 Completed [facility] Vaccine 00:00:00 [facility] Influenza Virus 2009-06-23 Completed [facility] Vaccine 00:00:00 [facility] Influenza Virus 2009-06-23 Completed [facility] Vaccine 00:00:00 [facility] Influenza Virus 2009-06-23 Completed [facility] Vaccine 00:00:00 [facility] Influenza Virus 2009-06-23 Completed [facility] Vaccine 00:00:00 [facility] Influenza Virus 2009-06-23 Completed [facility] Vaccine 00:00:00 [facility] Influenza Virus 2009-06-23 Completed [facility] Vaccine 00:00:00 [facility] Influenza Virus 2009-06-23 Completed [facility] Vaccine 00:00:00 [facility] Influenza Virus 2009-06-23 Completed [facility] Vaccine 00:00:00 [facility] Influenza Virus 2009-06-23 Completed [facility] Vaccine 00:00:00 [facility] Influenza Virus 2009-06-23 Completed [facility] Vaccine 00:00:00 [facility] Influenza Virus 2009-06-23 Completed [facility] Vaccine 00:00:00 [facility] Influenza Virus 2009-06-23 Completed [facility] Vaccine 00:00:00 [facility] Influenza Virus 2009-06-23 Completed [facility] Vaccine 00:00:00 [facility] Influenza Virus 2009-06-23 Completed [facility] Vaccine 00:00:00 [facility] Influenza Virus 2009-06-23 Completed [facility] Vaccine 00:00:00 [facility] Influenza Virus 2009-06-23 Completed [facility] Vaccine 00:00:00 [facility] Influenza Virus 2009-06-23 Completed [facility] Vaccine 00:00:00 [facility] Influenza Virus 2009-06-23 Completed [facility] Vaccine 00:00:00 [facility] Influenza Virus 2009-06-23 Completed [facility] Vaccine 00:00:00 [facility] Influenza Virus 2009-06-23 Completed [facility] Vaccine 00:00:00 [facility] Influenza Virus 2009-06-23 Completed [facility] Vaccine 00:00:00 [facility] Influenza Virus 2009-06-23 Completed [facility] Vaccine 00:00:00 [facility] Influenza Virus 2009-06-23 Completed [facility] Vaccine 00:00:00 [facility] Influenza Virus 2009-06-23 Completed [facility] Vaccine 00:00:00 [facility] Influenza Virus 2009-06-23 Completed [facility] Vaccine 00:00:00 [facility] Influenza Virus 2009-06-23 Completed [facility] Vaccine 00:00:00 [facility] Influenza Virus 2009-06-23 Completed [facility] Vaccine 00:00:00 [facility] Influenza Virus 2009-06-23 Completed [facility] Vaccine 00:00:00 [facility] Influenza Virus 2009-06-23 Completed [facility] Vaccine 00:00:00 [facility] Influenza Virus 2009-06-23 Completed [facility] Vaccine 00:00:00 [facility] Influenza Virus 2009-05-20 Completed [facility] Vaccine 00:00:00 [facility] Influenza Virus 2009-05-20 Completed [facility] Vaccine 00:00:00 [facility] Influenza Virus 2009-05-20 Completed [facility] Vaccine 00:00:00 [facility] Influenza Virus 2009-05-20 Completed [facility] Vaccine 00:00:00 [facility] Influenza Virus 2009-05-20 Completed [facility] Vaccine 00:00:00 [facility] Influenza Virus 2009-05-20 Completed [facility] Vaccine 00:00:00 [facility] Influenza Virus 2009-05-20 Completed [facility] Vaccine 00:00:00 [facility] Influenza Virus 2009-05-20 Completed [facility] Vaccine 00:00:00 [facility] Influenza Virus 2009-05-20 Completed [facility] Vaccine 00:00:00 [facility] Influenza Virus 2009-05-20 Completed [facility] Vaccine 00:00:00 [facility] Influenza Virus 2009-05-20 Completed [facility] Vaccine 00:00:00 [facility] Influenza Virus 2009-05-20 Completed [facility] Vaccine 00:00:00 [facility] Influenza Virus 2009-05-20 Completed [facility] Vaccine 00:00:00 [facility] Influenza Virus 2009-05-20 Completed [facility] Vaccine 00:00:00 [facility] Influenza Virus 2009-05-20 Completed [facility] Vaccine 00:00:00 [facility] Influenza Virus 2009-05-20 Completed [facility] Vaccine 00:00:00 [facility] Influenza Virus 2009-05-20 Completed [facility] Vaccine 00:00:00 [facility] Influenza Virus 2009-05-20 Completed [facility] Vaccine 00:00:00 [facility] Influenza Virus 2009-05-20 Completed [facility] Vaccine 00:00:00 [facility] Influenza Virus 2009-05-20 Completed [facility] Vaccine 00:00:00 [facility] Influenza Virus 2009-05-20 Completed [facility] Vaccine 00:00:00 [facility] Influenza Virus 2009-05-20 Completed [facility] Vaccine 00:00:00 [facility] Influenza Virus 2009-05-20 Completed [facility] Vaccine 00:00:00 [facility] Influenza Virus 2009-05-20 Completed [facility] Vaccine 00:00:00 [facility] Influenza Virus 2009-05-20 Completed [facility] Vaccine 00:00:00 [facility] Influenza Virus 2009-05-20 Completed [facility] Vaccine 00:00:00 [facility] Influenza Virus 2009-05-20 Completed [facility] Vaccine 00:00:00 [facility] Influenza Virus 2009-05-20 Completed [facility] Vaccine 00:00:00 [facility] Influenza Virus 2009-05-20 Completed [facility] Vaccine 00:00:00 [facility] Influenza Virus 2009-05-20 Completed [facility] Vaccine 00:00:00 [facility] Influenza Virus 2009-05-20 Completed [facility] Vaccine 00:00:00 [facility] Influenza Virus 2009-05-20 Completed [facility] Vaccine 00:00:00 [facility] Influenza Virus 2009-05-20 Completed [facility] Vaccine 00:00:00 [facility] Influenza Virus 2009-05-20 Completed [facility] Vaccine 00:00:00 [facility] Influenza Virus 2009-05-20 Completed [facility] Vaccine 00:00:00 [facility] Influenza Virus 2009-05-20 Completed [facility] Vaccine 00:00:00 [facility] Influenza Virus 2009-05-20 Completed [facility] Vaccine 00:00:00 [facility] Influenza Virus 2009-05-20 Completed [facility] Vaccine 00:00:00 [facility] Influenza Virus 2009-05-20 Completed [facility] Vaccine 00:00:00 [facility] Influenza Virus 2009-05-20 Completed [facility] Vaccine 00:00:00 [facility] Influenza Virus 2009-05-20 Completed [facility] Vaccine 00:00:00 [facility] Influenza Virus 2009-05-20 Completed [facility] Vaccine 00:00:00 [facility] Influenza Virus 2009-05-20 Completed [facility] Vaccine 00:00:00 [facility] Influenza Virus 2009-05-20 Completed [facility] Vaccine 00:00:00 [facility] Influenza Virus 2009-05-20 Completed [facility] Vaccine 00:00:00 [facility] Influenza Virus 2009-05-20 Completed [facility] Vaccine 00:00:00 [facility] Influenza Virus 2009-05-20 Completed [facility] Vaccine 00:00:00 [facility] Influenza Virus 2009-05-20 Completed [facility] Vaccine 00:00:00 [facility] Influenza Virus 2007-06-01 Completed [facility] Vaccine 00:00:00 [facility] Influenza Virus 2007-06-01 Completed [facility] Vaccine 00:00:00 [facility] Influenza Virus 2007-06-01 Completed [facility] Vaccine 00:00:00 [facility] Influenza Virus 2007-06-01 Completed [facility] Vaccine 00:00:00 [facility] Influenza Virus 2007-06-01 Completed [facility] Vaccine 00:00:00 [facility] Influenza Virus 2007-06-01 Completed [facility] Vaccine 00:00:00 [facility] Influenza Virus 2007-06-01 Completed [facility] Vaccine 00:00:00 [facility] Influenza Virus 2007-06-01 Completed [facility] Vaccine 00:00:00 [facility] Influenza Virus 2007-06-01 Completed [facility] Vaccine 00:00:00 [facility] Influenza Virus 2007-06-01 Completed [facility] Vaccine 00:00:00 [facility] Influenza Virus 2007-06-01 Completed [facility] Vaccine 00:00:00 [facility] Influenza Virus 2007-06-01 Completed [facility] Vaccine 00:00:00 [facility] Influenza Virus 2007-06-01 Completed [facility] Vaccine 00:00:00 [facility] Influenza Virus 2007-06-01 Completed [facility] Vaccine 00:00:00 [facility] Influenza Virus 2007-06-01 Completed [facility] Vaccine 00:00:00 [facility] Influenza Virus 2007-06-01 Completed [facility] Vaccine 00:00:00 [facility] Influenza Virus 2007-06-01 Completed [facility] Vaccine 00:00:00 [facility] Influenza Virus 2007-06-01 Completed [facility] Vaccine 00:00:00 [facility] Influenza Virus 2007-06-01 Completed [facility] Vaccine 00:00:00 [facility] Influenza Virus 2007-06-01 Completed [facility] Vaccine 00:00:00 [facility] Influenza Virus 2007-06-01 Completed [facility] Vaccine 00:00:00 [facility] Influenza Virus 2007-06-01 Completed [facility] Vaccine 00:00:00 [facility] Influenza Virus 2007-06-01 Completed [facility] Vaccine 00:00:00 [facility] Influenza Virus 2007-06-01 Completed [facility] Vaccine 00:00:00 [facility] Influenza Virus 2007-06-01 Completed [facility] Vaccine 00:00:00 [facility] Influenza Virus 2007-06-01 Completed [facility] Vaccine 00:00:00 [facility] Influenza Virus 2007-06-01 Completed [facility] Vaccine 00:00:00 [facility] Influenza Virus 2007-06-01 Completed [facility] Vaccine 00:00:00 [facility] Influenza Virus 2007-06-01 Completed [facility] Vaccine 00:00:00 [facility] Influenza Virus 2007-06-01 Completed [facility] Vaccine 00:00:00 [facility] Influenza Virus 2007-06-01 Completed [facility] Vaccine 00:00:00 [facility] Influenza Virus 2007-06-01 Completed [facility] Vaccine 00:00:00 [facility] Influenza Virus 2007-06-01 Completed [facility] Vaccine 00:00:00 [facility] Influenza Virus 2007-06-01 Completed [facility] Vaccine 00:00:00 [facility] Influenza Virus 2007-06-01 Completed [facility] Vaccine 00:00:00 [facility] Influenza Virus 2007-06-01 Completed [facility] Vaccine 00:00:00 [facility] Influenza Virus 2007-06-01 Completed [facility] Vaccine 00:00:00 [facility] Influenza Virus 2007-06-01 Completed [facility] Vaccine 00:00:00 [facility] Influenza Virus 2007-06-01 Completed [facility] Vaccine 00:00:00 [facility] Influenza Virus 2007-06-01 Completed [facility] Vaccine 00:00:00 [facility] Influenza Virus 2007-06-01 Completed [facility] Vaccine 00:00:00 [facility] Influenza Virus 2007-06-01 Completed [facility] Vaccine 00:00:00 [facility] Influenza Virus 2007-06-01 Completed [facility] Vaccine 00:00:00 [facility] Influenza Virus 2007-06-01 Completed [facility] Vaccine 00:00:00 [facility] Influenza Virus 2007-06-01 Completed [facility] Vaccine 00:00:00 [facility] Influenza Virus 2007-06-01 Completed [facility] Vaccine 00:00:00 [facility] Influenza Virus 2007-06-01 Completed [facility] Vaccine 00:00:00 [facility] Influenza Virus 2007-06-01 Completed [facility] Vaccine 00:00:00 [facility] DTAP 2006-05-24 Completed [facility] 00:00:00 [facility] Proquad 2006-05-24 Completed [facility] (MMR/VARICELLA) 00:00:00 [facility] Polio (IPV/OPV) 2006-05-24 Completed [facility] 00:00:00 [facility] DTAP 2006-05-24 Completed [facility] 00:00:00 [facility] Proquad 2006-05-24 Completed [facility] (MMR/VARICELLA) 00:00:00 [facility] Polio (IPV/OPV) 2006-05-24 Completed [facility] 00:00:00 [facility] DTAP 2006-05-24 Completed [facility] 00:00:00 [facility] Proquad 2006-05-24 Completed [facility] (MMR/VARICELLA) 00:00:00 [facility] Polio (IPV/OPV) 2006-05-24 Completed [facility] 00:00:00 [facility] DTAP 2006-05-24 Completed [facility] 00:00:00 [facility] Proquad 2006-05-24 Completed [facility] (MMR/VARICELLA) 00:00:00 [facility] Polio (IPV/OPV) 2006-05-24 Completed [facility] 00:00:00 [facility] DTAP 2006-05-24 Completed [facility] 00:00:00 [facility] Proquad 2006-05-24 Completed [facility] (MMR/VARICELLA) 00:00:00 [facility] Polio (IPV/OPV) 2006-05-24 Completed [facility] 00:00:00 [facility] DTAP 2006-05-24 Completed [facility] 00:00:00 [facility] Proquad 2006-05-24 Completed [facility] (MMR/VARICELLA) 00:00:00 [facility] Polio (IPV/OPV) 2006-05-24 Completed [facility] 00:00:00 [facility] DTAP 2006-05-24 Completed [facility] 00:00:00 [facility] Proquad 2006-05-24 Completed [facility] (MMR/VARICELLA) 00:00:00 [facility] Polio (IPV/OPV) 2006-05-24 Completed [facility] 00:00:00 [facility] DTAP 2006-05-24 Completed [facility] 00:00:00 [facility] Proquad 2006-05-24 Completed [facility] (MMR/VARICELLA) 00:00:00 [facility] Polio (IPV/OPV) 2006-05-24 Completed [facility] 00:00:00 [facility] DTAP 2006-05-24 Completed [facility] 00:00:00 [facility] Proquad 2006-05-24 Completed [facility] (MMR/VARICELLA) 00:00:00 [facility] Polio (IPV/OPV) 2006-05-24 Completed [facility] 00:00:00 [facility] DTAP 2006-05-24 Completed [facility] 00:00:00 [facility] Proquad 2006-05-24 Completed [facility] (MMR/VARICELLA) 00:00:00 [facility] Polio (IPV/OPV) 2006-05-24 Completed [facility] 00:00:00 [facility] DTAP 2006-05-24 Completed [facility] 00:00:00 [facility] Proquad 2006-05-24 Completed [facility] (MMR/VARICELLA) 00:00:00 [facility] Polio (IPV/OPV) 2006-05-24 Completed [facility] 00:[facility]:00 [facility] [facility] 2006-05-24 Completed [facility] 00:00:00 [facility] Proquad 2006-05-24 Completed [facility] (MMR/VARICELLA) 00:00:00 [facility] Polio (IPV/OPV) 2006-05-24 Completed [facility] 00:00:00 [facility] DTAP 2006-05-24 Completed [facility] 00:00:00 [facility] Proquad 2006-05-24 Completed [facility] (MMR/VARICELLA) 00:00:00 [facility] Polio (IPV/OPV) 2006-05-24 Completed [facility] 00:00:00 [facility] DTAP 2006-05-24 Completed [facility] 00:00:00 [facility] Proquad 2006-05-24 Completed [facility] (MMR/VARICELLA) 00:00:00 [facility] Polio (IPV/OPV) 2006-05-24 Completed [facility] 00:00:00 [facility] DTAP 2006-05-24 Completed [facility] 00:00:00 [facility] Proquad 2006-05-24 Completed [facility] (MMR/VARICELLA) 00:00:00 [facility] Polio (IPV/OPV) 2006-05-24 Completed [facility] 00:00:00 [facility] DTAP 2006-05-24 Completed [facility] 00:00:00 [facility] Proquad 2006-05-24 Completed [facility] (MMR/VARICELLA) 00:00:00 [facility] Polio (IPV/OPV) 2006-05-24 Completed [facility] 00:00:00 [facility] DTAP 2006-05-24 Completed [facility] 00:00:00 [facility] Proquad 2006-05-24 Completed [facility] (MMR/VARICELLA) 00:00:00 [facility] Polio (IPV/OPV) 2006-05-24 Completed [facility] 00:00:00 [facility] DTAP 2006-05-24 Completed [facility] 00:00:00 [facility] Proquad 2006-05-24 Completed [facility] (MMR/VARICELLA) 00:00:00 [facility] Polio (IPV/OPV) 2006-05-24 Completed [facility] 00:00:00 [facility] DTAP 2006-05-24 Completed [facility] 00:00:00 [facility] Proquad 2006-05-24 Completed [facility] (MMR/VARICELLA) 00:00:00 [facility] Polio (IPV/OPV) 2006-05-24 Completed [facility] 00:00:00 [facility] DTAP 2006-05-24 Completed [facility] 00:00:00 [facility] Proquad 2006-05-24 Completed [facility] (MMR/VARICELLA) 00:00:00 [facility] Polio (IPV/OPV) 2006-05-24 Completed [facility] 00:00:00 [facility] DTAP 2006-05-24 Completed [facility] 00:00:00 [facility] Proquad 2006-05-24 Completed [facility] (MMR/VARICELLA) 00:00:00 [facility] Polio (IPV/OPV) 2006-05-24 Completed [facility] 00:00:00 [facility] DTAP 2006-05-24 Completed [facility] 00:00:00 [facility] Proquad 2006-05-24 Completed [facility] (MMR/VARICELLA) 00:00:00 [facility] Polio (IPV/OPV) 2006-05-24 Completed [facility] 00:00:00 [facility] DTAP 2006-05-24 Completed [facility] 00:00:00 [facility] Proquad 2006-05-24 Completed [facility] (MMR/VARICELLA) 00:00:00 [facility] Polio (IPV/OPV) 2006-05-24 Completed [facility] 00:00:00 [facility] DTAP 2006-05-24 Completed [facility] 00:00:00 [facility] Proquad 2006-05-24 Completed [facility] (MMR/VARICELLA) 00:00:00 [facility] Polio (IPV/OPV) 2006-05-24 Completed [facility] 00:00:00 [facility] DTAP 2006-05-24 Completed [facility] 00:00:00 [facility] Proquad 2006-05-24 Completed [facility] (MMR/VARICELLA) 00:00:00 [facility] Polio (IPV/OPV) 2006-05-24 Completed [facility] 00:00:00 [facility] DTAP 2006-05-24 Completed [facility] 00:00:00 [facility] Proquad 2006-05-24 Completed [facility] (MMR/VARICELLA) 00:00:00 [facility] Polio (IPV/OPV) 2006-05-24 Completed [facility] 00:00:00 [facility] DTAP 2006-05-24 Completed [facility] 00:00:00 [facility] Proquad 2006-05-24 Completed [facility] (MMR/VARICELLA) 00:00:00 [facility] Polio (IPV/OPV) 2006-05-24 Completed [facility] 00:00:00 [facility] DTAP 2006-05-24 Completed [facility] 00:00:00 [facility] Proquad 2006-05-24 Completed [facility] (MMR/VARICELLA) 00:00:00 [facility] Polio (IPV/OPV) 2006-05-24 Completed [facility] 00:00:00 [facility] DTAP 2006-05-24 Completed [facility] 00:00:00 [facility] Proquad 2006-05-24 Completed [facility] (MMR/VARICELLA) 00:00:00 [facility] Polio (IPV/OPV) 2006-05-24 Completed [facility] 00:00:00 [facility] DTAP 2006-05-24 Completed [facility] 00:00:00 [facility] Proquad 2006-05-24 Completed [facility] (MMR/VARICELLA) 00:00:00 [facility] Polio (IPV/OPV) 2006-05-24 Completed [facility] 00:00:00 [facility] DTAP 2006-05-24 Completed [facility] 00:00:00 [facility] Proquad 2006-05-24 Completed [facility] (MMR/VARICELLA) 00:00:00 [facility] Polio (IPV/OPV) 2006-05-24 Completed [facility] 00:00:00 [facility] DTAP 2006-05-24 Completed [facility] 00:00:00 [facility] Proquad 2006-05-24 Completed [facility] (MMR/VARICELLA) 00:00:00 [facility] Polio (IPV/OPV) 2006-05-24 Completed [facility] 00:00:00 [facility] DTAP 2006-05-24 Completed [facility] 00:00:00 [facility] Proquad 2006-05-24 Completed [facility] (MMR/VARICELLA) 00:00:00 [facility] Polio (IPV/OPV) 2006-05-24 Completed [facility] 00:00:00 [facility] DTAP 2006-05-24 Completed [facility] 00:00:00 [facility] Proquad 2006-05-24 Completed [facility] (MMR/VARICELLA) 00:00:00 [facility] Polio (IPV/OPV) 2006-05-24 Completed [facility] 00:00:00 [facility] DTAP 2006-05-24 Completed [facility] 00:00:00 [facility] Proquad 2006-05-24 Completed [facility] (MMR/VARICELLA) 00:00:00 [facility] Polio (IPV/OPV) 2006-05-24 Completed [facility] 00:00:00 [facility] DTAP 2006-05-24 Completed [facility] 00:00:00 [facility] Proquad 2006-05-24 Completed [facility] (MMR/VARICELLA) 00:00:00 [facility] Polio (IPV/OPV) 2006-05-24 Completed [facility] 00:00:00 [facility] DTAP 2006-05-24 Completed [facility] 00:00:00 [facility] Proquad 2006-05-24 Completed [facility] (MMR/VARICELLA) 00:00:00 [facility] Polio (IPV/OPV) 2006-05-24 Completed [facility] 00:00:00 [facility] DTAP 2006-05-24 Completed [facility] 00:00:00 [facility] Proquad 2006-05-24 Completed [facility] (MMR/VARICELLA) 00:00:00 [facility] Polio (IPV/OPV) 2006-05-24 Completed [facility] 00:00:00 [facility] DTAP 2006-05-24 Completed [facility] 00:00:00 [facility] Proquad 2006-05-24 Completed [facility] (MMR/VARICELLA) 00:00:00 [facility] Polio (IPV/OPV) 2006-05-24 Completed [facility] 00:00:00 [facility] DTAP 2006-05-24 Completed [facility] 00:00:00 [facility] Proquad 2006-05-24 Completed [facility] (MMR/VARICELLA) 00:00:00 [facility] Polio (IPV/OPV) 2006-05-24 Completed [facility] 00:00:00 [facility] DTAP 2006-05-24 Completed [facility] 00:00:00 [facility] Proquad 2006-05-24 Completed [facility] (MMR/VARICELLA) 00:00:00 [facility] Polio (IPV/OPV) 2006-05-24 Completed [facility] 00:00:00 [facility] DTAP 2006-05-24 Completed [facility] 00:00:00 [facility] Proquad 2006-05-24 Completed [facility] (MMR/VARICELLA) 00:00:00 [facility] Polio (IPV/OPV) 2006-05-24 Completed [facility] 00:00:00 [facility] DTAP 2006-05-24 Completed [facility] 00:00:00 [facility] Proquad 2006-05-24 Completed [facility] (MMR/VARICELLA) 00:00:00 [facility] Polio (IPV/OPV) 2006-05-24 Completed [facility] 00:00:00 [facility] DTAP 2006-05-24 Completed [facility] 00:00:00 [facility] Proquad 2006-05-24 Completed [facility] (MMR/VARICELLA) 00:00:00 [facility] Polio (IPV/OPV) 2006-05-24 Completed [facility] 00:00:00 [facility] DTAP 2006-05-24 Completed [facility] 00:00:00 [facility] Proquad 2006-05-24 Completed [facility] (MMR/VARICELLA) 00:00:00 [facility] Polio (IPV/OPV) 2006-05-24 Completed [facility] 00:00:00 [facility] DTAP 2006-05-24 Completed [facility] 00:00:00 [facility] Proquad 2006-05-24 Completed [facility] (MMR/VARICELLA) 00:00:00 [facility] Polio (IPV/OPV) 2006-05-24 Completed [facility] 00:00:00 [facility] DTAP 2006-05-24 Completed [facility] 00:00:00 [facility] Proquad 2006-05-24 Completed [facility] (MMR/VARICELLA) 00:00:00 [facility] Polio (IPV/OPV) 2006-05-24 Completed [facility] 00:00:00 [facility] DTAP 2006-05-24 Completed [facility] 00:00:00 [facility] Proquad 2006-05-24 Completed [facility] (MMR/VARICELLA) 00:00:00 [facility] Polio (IPV/OPV) 2006-05-24 Completed [facility] 00:00:00 [facility] HEPATITIS A 2005-05-19 Completed [facility] 00:00:00 [facility] Influenza Virus 2005-05-19 Completed [facility] Vaccine 00:00:00 [facility] HEPATITIS A 2005-05-19 Completed [facility] 00:00:00 [facility] Influenza Virus 2005-05-19 Completed [facility] Vaccine 00:00:00 [facility] HEPATITIS A 2005-05-19 Completed [facility] 00:00:00 [facility] Influenza Virus 2005-05-19 Completed [facility] Vaccine 00:00:00 [facility] HEPATITIS A 2005-05-19 Completed [facility] 00:00:00 [facility] Influenza Virus 2005-05-19 Completed [facility] Vaccine 00:00:00 [facility] HEPATITIS A 2005-05-19 Completed [facility] 00:00:00 [facility] Influenza Virus 2005-05-19 Completed [facility] Vaccine 00:00:00 [facility] HEPATITIS A 2005-05-19 Completed [facility] 00:00:00 [facility] Influenza Virus 2005-05-19 Completed [facility] Vaccine 00:00:00 [facility] HEPATITIS A 2005-05-19 Completed [facility] 00:00:00 [facility] Influenza Virus 2005-05-19 Completed [facility] Vaccine 00:00:00 [facility] HEPATITIS A 2005-05-19 Completed [facility] 00:00:00 [facility] Influenza Virus 2005-05-19 Completed [facility] Vaccine 00:00:00 [facility] HEPATITIS A 2005-05-19 Completed [facility] 00:00:00 [facility] Influenza Virus 2005-05-19 Completed [facility] Vaccine 00:00:00 [facility] HEPATITIS A 2005-05-19 Completed [facility] 00:00:00 [facility] Influenza Virus 2005-05-19 Completed [facility] Vaccine 00:00:00 [facility] HEPATITIS A 2005-05-19 Completed [facility] 00:00:00 [facility] Influenza Virus 2005-05-19 Completed [facility] Vaccine 00:00:00 [facility] HEPATITIS A 2005-05-19 Completed [facility] 00:00:00 [facility] Influenza Virus 2005-05-19 Completed [facility] Vaccine 00:00:00 [facility] HEPATITIS A 2005-05-19 Completed [facility] 00:00:00 [facility] Influenza Virus 2005-05-19 Completed [facility] Vaccine 00:00:00 [facility] HEPATITIS A 2005-05-19 Completed [facility] 00:00:00 [facility] Influenza Virus 2005-05-19 Completed [facility] Vaccine 00:00:00 [facility] HEPATITIS A 2005-05-19 Completed [facility] 00:00:00 [facility] Influenza Virus 2005-05-19 Completed [facility] Vaccine 00:00:00 [facility] HEPATITIS A 2005-05-19 Completed [facility] 00:00:00 [facility] Influenza Virus 2005-05-19 Completed [facility] Vaccine 00:00:00 [facility] HEPATITIS A 2005-05-19 Completed [facility] 00:00:00 [facility] Influenza Virus 2005-05-19 Completed [facility] Vaccine 00:00:00 [facility] HEPATITIS A 2005-05-19 Completed [facility] 00:00:00 [facility] Influenza Virus 2005-05-19 Completed [facility] Vaccine 00:00:00 [facility] HEPATITIS A 2005-05-19 Completed [facility] 00:00:00 [facility] Influenza Virus 2005-05-19 Completed [facility] Vaccine 00:00:00 [facility] HEPATITIS A 2005-05-19 Completed [facility] 00:00:00 [facility] Influenza Virus 2005-05-19 Completed [facility] Vaccine 00:00:00 [facility] HEPATITIS A 2005-05-19 Completed [facility] 00:00:00 [facility] Influenza Virus 2005-05-19 Completed [facility] Vaccine 00:00:00 [facility] HEPATITIS A 2005-05-19 Completed [facility] 00:00:00 [facility] Influenza Virus 2005-05-19 Completed [facility] Vaccine 00:00:00 [facility] HEPATITIS A 2005-05-19 Completed [facility] 00:00:00 [facility] Influenza Virus 2005-05-19 Completed [facility] Vaccine 00:00:00 [facility] HEPATITIS A 2005-05-19 Completed [facility] 00:00:00 [facility] Influenza Virus 2005-05-19 Completed [facility] Vaccine 00:00:00 [facility] HEPATITIS A 2005-05-19 Completed [facility] 00:00:00 [facility] Influenza Virus 2005-05-19 Completed [facility] Vaccine 00:00:00 [facility] HEPATITIS A 2005-05-19 Completed [facility] 00:00:00 [facility] Influenza Virus 2005-05-19 Completed [facility] Vaccine 00:00:00 [facility] HEPATITIS A 2005-05-19 Completed [facility] 00:00:00 [facility] Influenza Virus 2005-05-19 Completed [facility] Vaccine 00:00:00 [facility] HEPATITIS A 2005-05-19 Completed [facility] 00:00:00 [facility] Influenza Virus 2005-05-19 Completed [facility] Vaccine 00:00:00 [facility] HEPATITIS A 2005-05-19 Completed [facility] 00:00:00 [facility] Influenza Virus 2005-05-19 Completed [facility] Vaccine 00:00:00 [facility] HEPATITIS A 2005-05-19 Completed [facility] 00:00:00 [facility] Influenza Virus 2005-05-19 Completed [facility] Vaccine 00:00:00 [facility] HEPATITIS A 2005-05-19 Completed [facility] 00:00:00 [facility] Influenza Virus 2005-05-19 Completed [facility] Vaccine 00:00:00 [facility] HEPATITIS A 2005-05-19 Completed [facility] 00:00:00 [facility] Influenza Virus 2005-05-19 Completed [facility] Vaccine 00:00:00 [facility] HEPATITIS A 2005-05-19 Completed [facility] 00:00:00 [facility] Influenza Virus 2005-05-19 Completed [facility] Vaccine 00:00:00 [facility] HEPATITIS A 2005-05-19 Completed [facility] 00:00:00 [facility] Influenza Virus 2005-05-19 Completed [facility] Vaccine 00:00:00 [facility] HEPATITIS A 2005-05-19 Completed [facility] 00:00:00 [facility] Influenza Virus 2005-05-19 Completed [facility] Vaccine 00:00:00 [facility] HEPATITIS A 2005-05-19 Completed [facility] 00:00:00 [facility] Influenza Virus 2005-05-19 Completed [facility] Vaccine 00:00:00 [facility] HEPATITIS A 2005-05-19 Completed [facility] 00:00:00 [facility] Influenza Virus 2005-05-19 Completed [facility] Vaccine 00:00:00 [facility] HEPATITIS A 2005-05-19 Completed [facility] 00:00:00 [facility] Influenza Virus 2005-05-19 Completed [facility] Vaccine 00:00:00 [facility] HEPATITIS A 2005-05-19 Completed [facility] 00:00:00 [facility] Influenza Virus 2005-05-19 Completed [facility] Vaccine 00:00:00 [facility] HEPATITIS A 2005-05-19 Completed [facility] 00:00:00 [facility] Influenza Virus 2005-05-19 Completed [facility] Vaccine 00:00:00 [facility] HEPATITIS A 2005-05-19 Completed [facility] 00:00:00 [facility] Influenza Virus 2005-05-19 Completed [facility] Vaccine 00:00:00 [facility] HEPATITIS A 2005-05-19 Completed [facility] 00:00:00 [facility] Influenza Virus 2005-05-19 Completed [facility] Vaccine 00:00:00 [facility] HEPATITIS A 2005-05-19 Completed [facility] 00:00:00 [facility] Influenza Virus 2005-05-19 Completed [facility] Vaccine 00:00:00 [facility] HEPATITIS A 2005-05-19 Completed [facility] 00:00:00 [facility] Influenza Virus 2005-05-19 Completed [facility] Vaccine 00:00:00 [facility] HEPATITIS A 2005-05-19 Completed [facility] 00:00:00 [facility] Influenza Virus 2005-05-19 Completed [facility] Vaccine 00:00:00 [facility] HEPATITIS A 2005-05-19 Completed [facility] 00:00:00 [facility] Influenza Virus 2005-05-19 Completed [facility] Vaccine 00:00:00 [facility] HEPATITIS A 2005-05-19 Completed [facility] 00:00:00 [facility] Influenza Virus 2005-05-19 Completed [facility] Vaccine 00:00:00 [facility] HEPATITIS A 2005-05-19 Completed [facility] 00:00:00 [facility] Influenza Virus 2005-05-19 Completed [facility] Vaccine 00:00:00 [facility] HEPATITIS A 2004-05-17 Completed [facility] 00:00:00 [facility] HEPATITIS A 2004-05-17 Completed [facility] 00:00:00 [facility] HEPATITIS A 2004-05-17 Completed [facility] 00:00:00 [facility] HEPATITIS A 2004-05-17 Completed [facility] 00:00:00 [facility] HEPATITIS A 2004-05-17 Completed [facility] 00:00:00 [facility] HEPATITIS A 2004-05-17 Completed [facility] 00:00:00 [facility] HEPATITIS A 2004-05-17 Completed [facility] 00:00:00 [facility] HEPATITIS A 2004-05-17 Completed [facility] 00:00:00 [facility] HEPATITIS A 2004-05-17 Completed [facility] 00:00:00 [facility] HEPATITIS A 2004-05-17 Completed [facility] 00:00:00 [facility] HEPATITIS A 2004-05-17 Completed [facility] 00:00:00 [facility] HEPATITIS A 2004-05-17 Completed [facility] 00:00:00 [facility] HEPATITIS A 2004-05-17 Completed [facility] 00:00:00 [facility] HEPATITIS A 2004-05-17 Completed [facility] 00:00:00 [facility] HEPATITIS A 2004-05-17 Completed [facility] 00:00:00 [facility] HEPATITIS A 2004-05-17 Completed [facility] 00:00:00 [facility] HEPATITIS A 2004-05-17 Completed [facility] 00:00:00 [facility] HEPATITIS A 2004-05-17 Completed [facility] 00:00:00 [facility] HEPATITIS A 2004-05-17 Completed [facility] 00:00:00 [facility] HEPATITIS A 2004-05-17 Completed [facility] 00:00:00 [facility] HEPATITIS A 2004-05-17 Completed [facility] 00:00:00 [facility] HEPATITIS A 2004-05-17 Completed [facility] 00:00:00 [facility] HEPATITIS A 2004-05-17 Completed [facility] 00:00:00 [facility] HEPATITIS A 2004-05-17 Completed [facility] 00:00:00 [facility] HEPATITIS A 2004-05-17 Completed [facility] 00:00:00 [facility] HEPATITIS A 2004-05-17 Completed [facility] 00:00:00 [facility] HEPATITIS A 2004-05-17 Completed [facility] 00:00:00 [facility] HEPATITIS A 2004-05-17 Completed [facility] 00:00:00 [facility] HEPATITIS A 2004-05-17 Completed [facility] 00:00:00 [facility] HEPATITIS A 2004-05-17 Completed [facility] 00:00:00 [facility] HEPATITIS A 2004-05-17 Completed [facility] 00:00:00 [facility] HEPATITIS A 2004-05-17 Completed [facility] 00:00:00 [facility] HEPATITIS A 2004-05-17 Completed [facility] 00:00:00 [facility] HEPATITIS A 2004-05-17 Completed [facility] 00:00:00 [facility] HEPATITIS A 2004-05-17 Completed [facility] 00:00:00 [facility] HEPATITIS A 2004-05-17 Completed [facility] 00:00:00 [facility] HEPATITIS A 2004-05-17 Completed [facility] 00:00:00 [facility] HEPATITIS A 2004-05-17 Completed [facility] 00:00:00 [facility] HEPATITIS A 2004-05-17 Completed [facility] 00:00:00 [facility] HEPATITIS A 2004-05-17 Completed [facility] 00:00:00 [facility] HEPATITIS A 2004-05-17 Completed [facility] 00:00:00 [facility] HEPATITIS A 2004-05-17 Completed [facility] 00:00:00 [facility] HEPATITIS A 2004-05-17 Completed [facility] 00:00:00 [facility] HEPATITIS A 2004-05-17 Completed [facility] 00:00:00 [facility] HEPATITIS A 2004-05-17 Completed [facility] 00:00:00 [facility] HEPATITIS A 2004-05-17 Completed [facility] 00:00:00 [facility] HEPATITIS A 2004-05-17 Completed [facility] 00:00:00 [facility] HEPATITIS A 2004-05-17 Completed [facility] 00:00:00 [facility] Polio (IPV/OPV) 2003-08-21 Completed [facility] 00:00:00 [facility] Polio (IPV/OPV) 2003-08-21 Completed [facility] 00:00:00 [facility] Polio (IPV/OPV) 2003-08-21 Completed [facility] 00:00:00 [facility] Polio (IPV/OPV) 2003-08-21 Completed [facility] 00:00:00 [facility] Polio (IPV/OPV) 2003-08-21 Completed [facility] 00:00:00 [facility] Polio (IPV/OPV) 2003-08-21 Completed [facility] 00:00:00 [facility] Polio (IPV/OPV) 2003-08-21 Completed [facility] 00:00:00 [facility] Polio (IPV/OPV) 2003-08-21 Completed [facility] 00:00:00 [facility] Polio (IPV/OPV) 2003-08-21 Completed [facility] 00:00:00 [facility] Polio (IPV/OPV) 2003-08-21 Completed [facility] 00:00:00 [facility] Polio (IPV/OPV) 2003-08-21 Completed [facility] 00:00:00 [facility] Polio (IPV/OPV) 2003-08-21 Completed [facility] 00:00:00 [facility] Polio (IPV/OPV) 2003-08-21 Completed [facility] 00:00:00 [facility] Polio (IPV/OPV) 2003-08-21 Completed [facility] 00:00:00 [facility] Polio (IPV/OPV) 2003-08-21 Completed [facility] 00:00:00 [facility] Polio (IPV/OPV) 2003-08-21 Completed [facility] 00:00:00 [facility] Polio (IPV/OPV) 2003-08-21 Completed [facility] 00:00:00 [facility] Polio (IPV/OPV) 2003-08-21 Completed [facility] 00:00:00 [facility] Polio (IPV/OPV) 2003-08-21 Completed [facility] 00:00:00 [facility] Polio (IPV/OPV) 2003-08-21 Completed [facility] 00:00:00 [facility] Polio (IPV/OPV) 2003-08-21 Completed [facility] 00:00:00 [facility] Polio (IPV/OPV) 2003-08-21 Completed [facility] 00:00:00 [facility] Polio (IPV/OPV) 2003-08-21 Completed [facility] 00:00:00 [facility] Polio (IPV/OPV) 2003-08-21 Completed [facility] 00:00:00 [facility] Polio (IPV/OPV) 2003-08-21 Completed [facility] 00:00:00 [facility] Polio (IPV/OPV) 2003-08-21 Completed [facility] 00:00:00 [facility] Polio (IPV/OPV) 2003-08-21 Completed [facility] 00:00:00 [facility] Polio (IPV/OPV) 2003-08-21 Completed [facility] 00:00:00 [facility] Polio (IPV/OPV) 2003-08-21 Completed [facility] 00:00:00 [facility] Polio (IPV/OPV) 2003-08-21 Completed [facility] 00:00:00 [facility] HIB 4 Dose Schedule 2003-05-22 Completed Unive rsity of 00:00:00 [facility] MMR 2003-05-22 Completed [facility] 00:00:00 [facility] Pneumococcal 7 2003-05-22 Completed [facility] of Conjugate, PCV7 00:00:00 [facility] (Pre[facility]ar[facility] Varicella 2003-05-22 Completed [facility] of (varivax)(chicken 00:00:00 [facility] pox) [facility] HIB 4 Dose Schedule 2003-05-22 Completed Unive rsity of 00:00:00 [facility] MMR 2003-05-22 Completed [facility] 00:00:00 [facility] Pneumococcal 7 2003-05-22 Completed [facility] of Conjugate, PCV7 00:00:00 [facility] (Pre[facility]ar7[facility] Varicella 2003-05-22 Completed [facility] (varivax)(chicken 00:00:00 [facility] pox) [facility] HIB 4 Dose Schedule 2003-05-22 Completed Unive rsity of 00:00:00 [facility] MMR 2003-05-22 Completed [facility] 00:00:00 [facility] Pneumococcal 7 2003-05-22 Completed [facility] Conjugate, PCV7 00:00:00 [facility] (Prevnar7) [facility] Varicella 2003-05-22 Completed [facility] (varivax)(chicken 00:00:00 [facility] pox) [facility] HIB 4 Dose Schedule 2003-05-22 Completed Unive rsity of 00:00:00 [facility] MMR 2003-05-22 Completed [facility] 00:00:00 [facility] Pneumococcal 7 2003-05-22 Completed [facility] of Conjugate, PCV7 00:00:00 [facility] (Prevnar7) [facility] Varicella 2003-05-22 Completed [facility] (varivax)(chicken 00:00:00 [facility] pox) [facility] HIB 4 Dose Schedule 2003-05-22 Completed Unive rsity of 00:00:00 [facility] MMR 2003-05-22 Completed [facility] 00:00:00 [facility] Pneumococcal 7 2003-05-22 Completed [facility] of Conjugate, PCV7 00:00:00 [facility] (Prevnar7[facility] Varicella 2003-05-22 Completed [facility] (varivax)(chicken 00:00:00 [place] [facility] pox) [facility] HIB 4 Dose Schedule 2003-05-22 Completed Unive rsity of 00:00:00 [facility] MMR 2003-05-22 Completed [facility] 00:00:00 [facility] Pneumococcal 7 2003-05-22 Completed [facility] Conjugate, PCV7 00:00:00 [facility] (Prevnar7) [facility] Varicella 2003-05-22 Completed [facility] of (varivax)(chicken 00:00:00 [facility] edical pox) Branch HIB 4 Dose Schedule 2003-05-22 Completed Unive rsity of 00:00:00 [facility] MMR 2003-05-22 Completed [facility] 00:00:00 [facility] Pneumococcal 7 2003-05-22 Completed [facility] Conjugate, PCV7 00:00:00 [facility] (Prevnar7) [facility] Varicella 2003-05-22 Completed [facility] (varivax)(chicken 00:00:00 [facility] pox) [facility] HIB 4 Dose Schedule 2003-05-22 Completed Unive rsity of 00:00:00 [facility] MMR 2003-05-22 Completed [facility] 00:00:00 [facility] Pneumococcal 7 2003-05-22 Completed [facility] Conjugate, PCV7 00:00:00 [facility] (Prevnar7) [facility] Varicella 2003-05-22 Completed [facility] (varivax)(chicken 00:00:00 [place] [facility] pox) [facility] HIB 4 Dose Schedule 2003-05-22 Completed Unive rsity of 00:00:00 [facility] MMR 2003-05-22 Completed [facility] 00:00:00 [facility] Pneumococcal 7 2003-05-22 Completed [facility] of Conjugate, PCV7 00:00:00 [facility] (Prevnar7) [facility] Varicella 2003-05-22 Completed [facility] (varivax)(chicken 00:00:00 [facility] edical pox) Branch HIB 4 Dose Schedule 2003-05-22 Completed Unive rsity of 00:00:00 [facility] MMR 2003-05-22 Completed [facility] 00:00:00 [facility] Pneumococcal 7 2003-05-22 Completed [facility] of Conjugate, PCV7 00:00:00 [facility] (Prevnar7[facility] Varicella 2003-05-22 Completed [facility] (varivax)(chicken 00:00:00 [place] [facility] pox) [facility] HIB 4 Dose Schedule 2003-05-22 Completed Unive rsity of 00:00:00 [facility] MMR 2003-05-22 Completed [facility] 00:00:00 [facility] Pneumococcal 7 2003-05-22 Completed [facility] of Conjugate, PCV7 00:00:00 [facility] (Prevnar7) [facility] Varicella 2003-05-22 Completed [facility] of (varivax)(chicken 00:00:00 [facility] edical pox) Branch HIB 4 Dose Schedule 2003-05-22 Completed Unive rsity of 00:00:00 [facility] MMR 2003-05-22 Completed [facility] 00:00:00 [facility] Pneumococcal 7 2003-05-22 Completed [facility] of Conjugate, PCV7 00:00:00 [facility] (Prevnar7[facility] Varicella 2003-05-22 Completed [facility] (varivax)(chicken 00:00:00 [place] [facility] pox) [facility] HIB 4 Dose Schedule 2003-05-22 Completed Unive rsity of 00:00:00 [facility] MMR 2003-05-22 Completed [facility] 00:00:00 [facility] Pneumococcal 7 2003-05-22 Completed [facility] Conjugate, PCV7 00:00:00 [facility] (Prevnar7) [facility] Varicella 2003-05-22 Completed [facility] (varivax)(chicken 00:00:00 [place] [facility] pox) [facility] HIB 4 Dose Schedule 2003-05-22 Completed Unive rsity of 00:00:00 [facility] MMR 2003-05-22 Completed [facility] 00:00:00 [facility] Pneumococcal 7 2003-05-22 Completed [facility] of Conjugate, PCV7 00:00:00 [facility] (Prevnar7[facility] Varicella 2003-05-22 Completed [facility] (varivax)(chicken 00:00:00 [place] [facility] pox) [facility] HIB 4 Dose Schedule 2003-05-22 Completed Unive rsity of 00:00:00 [facility] MMR 2003-05-22 Completed [facility] of 00:00:00 [facility] Pneumococcal 7 2003-05-22 Completed [facility] of Conjugate, PCV7 00:00:00 [facility] (Prevnar7[facility] Varicella 2003-05-22 Completed [facility] (varivax)(chicken 00:00:00 [place] [facility] pox) [facility] HIB 4 Dose Schedule 2003-05-22 Completed Unive rsity of 00:00:00 [facility] MMR 2003-05-22 Completed [facility] of 00:00:00 [facility] Pneumococcal 7 2003-05-22 Completed [facility] Conjugate, PCV7 00:00:00 [facility] (Prevnar7) [facility] Varicella 2003-05-22 Completed [facility] (varivax)(chicken 00:00:00 [place] [facility] pox) [facility] HIB 4 Dose Schedule 2003-05-22 Completed Unive rsity of 00:00:00 [facility] MMR 2003-05-22 Completed [facility] of 00:00:00 [facility] Pneumococcal 7 2003-05-22 Completed [facility] Conjugate, PCV7 00:00:00 [facility] (Prevnar7[facility] Varicella 2003-05-22 Completed [facility] (varivax)(chicken 00:00:00 [place] [facility] pox) [facility] HIB 4 Dose Schedule 2003-05-22 Completed Unive rsity of 00:00:00 [facility] MMR 2003-05-22 Completed [facility] of 00:00:00 [facility] Pneumococcal 7 2003-05-22 Completed [facility] of Conjugate, PCV7 00:00:00 [facility] (Prevnar7[facility] Varicella 2003-05-22 Completed [facility] (varivax)(chicken 00:00:00 [place] [facility] pox) [facility] HIB 4 Dose Schedule 2003-05-22 Completed Unive rsity of 00:00:00 [facility] MMR 2003-05-22 Completed [facility] 00:00:00 [facility] Pneumococcal 7 2003-05-22 Completed [facility] Conjugate, PCV7 00:00:00 [facility] (Prevnar7) [facility] Varicella 2003-05-22 Completed [facility] of (varivax)(chicken 00:00:00 [facility] edical pox) Branch HIB 4 Dose Schedule 2003-05-22 Completed Unive rsity of 00:00:00 [facility] MMR 2003-05-22 Completed [facility] of 00:00:00 [facility] Pneumococcal 7 2003-05-22 Completed [facility] of Conjugate, PCV7 00:00:00 [facility] (Prevnar7) [facility] Varicella 2003-05-22 Completed [facility] (varivax)(chicken 00:00:00 [facility] edical pox) Branch HIB 4 Dose Schedule 2003-05-22 Completed Unive rsity of 00:00:00 [facility] MMR 2003-05-22 Completed [facility] 00:00:00 [facility] Pneumococcal 7 2003-05-22 Completed [facility] Conjugate, PCV7 00:00:00 [facility] (Prevnar7[facility] Varicella 2003-05-22 Completed [facility] (varivax)(chicken 00:00:00 [place] [facility] pox) [facility] HIB 4 Dose Schedule 2003-05-22 Completed Unive rsity of 00:00:00 [facility] MMR 2003-05-22 Completed [facility] 00:00:00 [facility] Pneumococcal 7 2003-05-22 Completed [facility] Conjugate, PCV7 00:00:00 [facility] (Prevnar7[facility] Varicella 2003-05-22 Completed [facility] (varivax)(chicken 00:00:00 [place] [facility] pox) [facility] HIB 4 Dose Schedule 2003-05-22 Completed Unive rsity of 00:00:00 [facility] MMR 2003-05-22 Completed [facility] 00:00:00 [facility] Pneumococcal 7 2003-05-22 Completed [facility] Conjugate, PCV7 00:00:00 [facility] (Prevnar7) [facility] Varicella 2003-05-22 Completed [facility] (varivax)(chicken 00:00:00 [place] [facility] pox) [facility] HIB 4 Dose Schedule 2003-05-22 Completed Unive rsity of 00:00:00 [facility] MMR 2003-05-22 Completed [facility] 00:00:00 [facility] Pneumococcal 7 2003-05-22 Completed [facility] Conjugate, PCV7 00:00:00 [place] [facility] (Prevnar7) [facility] Varicella 2003-05-22 Completed [facility] (varivax)(chicken 00:00:00 [place] [facility] pox) [facility] HIB 4 Dose Schedule 2003-05-22 Completed Unive rsity of 00:00:00 [facility] MMR 2003-05-22 Completed [facility] 00:00:00 [facility] Pneumococcal 7 2003-05-22 Completed [facility] Conjugate, PCV7 00:00:00 [facility] (Prevnar7) [facility] Varicella 2003-05-22 Completed [facility] (varivax)(chicken 00:00:00 [place] [facility] pox) [facility] HIB 4 Dose Schedule 2003-05-22 Completed [facility]ive rsity of 00:00:00 [facility] MMR 2003-05-22 Completed [facility] 00:00:00 [facility] Pneumococcal 7 2003-05-22 Completed [facility] Conjugate, PCV7 00:00:00 [place] [facility] (Prevnar7) [facility] Varicella 2003-05-22 Completed [facility] (varivax)(chicken 00:00:00 [place] [facility] pox) [facility] HIB 4 Dose Schedule 2003-05-22 Completed [facility]ive rsity of 00:00:00 [facility] MMR 2003-05-22 Completed [facility] 00:00:00 [facility] Pneumococcal 7 2003-05-22 Completed [facility] Conjugate, PCV7 00:00:00 [facility] (Prevnar7) [facility] Varicella 2003-05-22 Completed [facility] (varivax)(chicken 00:00:00 [place] [facility] pox) [facility] HIB 4 Dose Schedule 2003-05-22 Completed [facility]ive rsity of 00:00:00 [facility] MMR 2003-05-22 Completed [facility] 00:00:00 [facility] Pneumococcal 7 2003-05-22 Completed [facility] Conjugate, PCV7 00:00:00 [place] [facility] (Prevnar7) [facility] Varicella 2003-05-22 Completed [facility] (varivax)(chicken 00:00:00 [facility] edical pox) Branch HIB 4 Dose Schedule 2003-05-22 Completed Unive rsity of 00:00:00 [facility] MMR 2003-05-22 Completed [facility] 00:00:00 [facility] Pneumococcal 7 2003-05-22 Completed [facility] of Conjugate, PCV7 00:00:00 [facility] (Prevnar7) [facility] Varicella 2003-05-22 Completed [facility] of (varivax)(chicken 00:00:00 [facility] edical pox) Branch HIB 4 Dose Schedule 2003-05-22 Completed Unive rsity of 00:00:00 [facility] MMR 2003-05-22 Completed [facility] 00:00:00 [facility] Pneumococcal 7 2003-05-22 Completed [facility] of Conjugate, PCV7 00:00:00 [facility] (Prevnar7[facility] Varicella 2003-05-22 Completed [facility] of (varivax)(chicken 00:00:00 [facility] edical pox) Branch DTAP 2003-01-01 Completed [facility] 00:00:00 [facility] HIB 4 Dose Schedule 2003-01-01 Completed Unive rsity of 00:00:00 [facility] Hep B, Adol or Pedi 2003-01-01 Completed Unive rsity of Dosage 00:00:00 [facility] Pneumococcal 7 2003-01-01 Completed [facility] of Conjugate, PCV7 00:00:00 [facility] (Prevnar7[facility] DTAP 2003-01-01 Completed [facility] 00:00:00 [facility] HIB 4 Dose Schedule 2003-01-01 Completed [facility]ive rsity of 00:00:00 [facility] Hep B, Adol or Pedi 2003-01-01 Completed Unive rsity of Dosage 00:00:00 [facility] Pneumococcal 7 2003-01-01 Completed [facility] of Conjugate, PCV7 00:00:00 [facility] (Prevnar[facility] DTAP 2003-01-01 Completed [facility] 00:00:00 [facility] HIB 4 Dose Schedule 2003-01-01 Completed Unive rsity of 00:00:00 [facility] Hep B, Adol or Pedi 2003-01-01 Completed Unive rsity of Dosage 00:00:00 [facility] Pneumococcal 7 2003-01-01 Completed [facility] of Conjugate, PCV7 00:00:00 [facility] (Prevnar[facility] DTAP 2003-01-01 Completed [facility] 00:00:00 [facility] HIB 4 Dose Schedule 2003-01-01 Completed [facility]ive rsity of 00:00:00 [facility] Hep B, Adol or Pedi 2003-01-01 Completed Unive rsity of Dosage 00:00:00 [facility] Pneumococcal 7 2003-01-01 Completed [facility] Conjugate, PCV7 00:00:00 [place] [facility] (Prevnar7[facility] DTAP 2003-01-01 Completed [facility] 00:00:00 [facility] HIB 4 Dose Schedule 2003-01-01 Completed Unive rsity of 00:00:00 [facility] Hep B, Adol or Pedi 2003-01-01 Completed Unive rsity of Dosage 00:00:00 [facility] Pneumococcal 7 2003-01-01 Completed [facility] of Conjugate, PCV7 00:00:00 [facility] (Prevnar7[facility] DTAP 2003-01-01 Completed [facility] 00:00:00 [facility] HIB 4 Dose Schedule 2003-01-01 Completed Unive rsity of 00:00:00 [facility] Hep B, Adol or Pedi 2003-01-01 Completed Unive rsity of Dosage 00:00:00 [facility] Pneumococcal 7 2003-01-01 Completed [facility] Conjugate, PCV7 00:00:00 [place] [facility] (Prevnar7[facility] DTAP 2003-01-01 Completed [facility] 00:00:00 [facility] HIB 4 Dose Schedule 2003-01-01 Completed Unive rsity of 00:00:00 [facility] Hep B, Adol or Pedi 2003-01-01 Completed Unive rsity of Dosage 00:00:00 [facility] Pneumococcal 7 2003-01-01 Completed [facility] Conjugate, PCV7 00:00:00 [place] [facility] (Prevnar7) [facility] DTAP 2003-01-01 Completed [facility] 00:00:00 [facility] HIB 4 Dose Schedule 2003-01-01 Completed Unive rsity of 00:00:00 [facility] Hep B, Adol or Pedi 2003-01-01 Completed Unive rsity of Dosage 00:00:00 [facility] Pneumococcal 7 2003-01-01 Completed [facility] Conjugate, PCV7 00:00:00 [facility] (Prevnar[facility] DTAP 2003-01-01 Completed [facility] 00:00:00 [facility] HIB 4 Dose Schedule 2003-01-01 Completed Unive rsity of 00:00:00 [facility] Hep B, Adol or Pedi 2003-01-01 Completed Unive rsity of Dosage 00:00:00 [facility] Pneumococcal 7 2003-01-01 Completed [facility] of Conjugate, PCV7 00:00:00 [facility] (Prevnar7[facility] DTAP 2003-01-01 Completed [facility] 00:00:00 [facility] HIB 4 Dose Schedule 2003-01-01 Completed Unive rsity of 00:00:00 [facility] Hep B, Adol or Pedi 2003-01-01 Completed Unive rsity of Dosage 00:00:00 [facility] Pneumococcal 7 2003-01-01 Completed [facility] Conjugate, PCV7 00:00:00 [facility] (Prevnar[facility] DTAP 2003-01-01 Completed [facility] 00:00:00 [facility] HIB 4 Dose Schedule 2003-01-01 Completed Unive rsity of 00:00:00 [facility] Hep B, Adol or Pedi 2003-01-01 Completed Unive rsity of Dosage 00:00:00 [facility] Pneumococcal 7 2003-01-01 Completed [facility] Conjugate, PCV7 00:00:00 [place] [facility] (Prevnar7[facility] DTAP 2003-01-01 Completed [facility] 00:00:00 [facility] HIB 4 Dose Schedule 2003-01-01 Completed Unive rsity of 00:00:00 [facility] Hep B, Adol or Pedi 2003-01-01 Completed Unive rsity of Dosage 00:00:00 [facility] Pneumococcal 7 2003-01-01 Completed [facility] Conjugate, PCV7 00:00:00 [facility] (Prevnar[facility] DTAP 2003-01-01 Completed [facility] 00:00:00 [facility] HIB 4 Dose Schedule 2003-01-01 Completed Unive rsity of 00:00:00 [facility] Hep B, Adol or Pedi 2003-01-01 Completed Unive rsity of Dosage 00:00:00 [facility] Pneumococcal 7 2003-01-01 Completed [facility] Conjugate, PCV7 00:00:00 [place] [facility] (Prevnar7[facility] DTAP 2003-01-01 Completed [facility] 00:00:00 [facility] HIB 4 Dose Schedule 2003-01-01 Completed Unive rsity of 00:00:00 [facility] Hep B, Adol or Pedi 2003-01-01 Completed Unive rsity of Dosage 00:00:00 [facility] Pneumococcal 7 2003-01-01 Completed [facility] Conjugate, PCV7 00:00:00 [facility] (Prevnar7[facility] DTAP 2003-01-01 Completed [facility] 00:00:00 [facility] HIB 4 Dose Schedule 2003-01-01 Completed Unive rsity of 00:00:00 [facility] Hep B, Adol or Pedi 2003-01-01 Completed Unive rsity of Dosage 00:00:00 [facility] Pneumococcal 7 2003-01-01 Completed [facility] Conjugate, PCV7 00:00:00 [facility] (Prevnar7[facility] DTAP 2003-01-01 Completed [facility] 00:00:00 [facility] HIB 4 Dose Schedule 2003-01-01 Completed Unive rsity of 00:00:00 [facility] Hep B, Adol or Pedi 2003-01-01 Completed Unive rsity of Dosage 00:00:00 [facility] Pneumococcal 7 2003-01-01 Completed [facility] Conjugate, PCV7 00:00:00 [place] [facility] (Prevnar7) [facility] DTAP 2003-01-01 Completed [facility] 00:00:00 [facility] HIB 4 Dose Schedule 2003-01-01 Completed [facility]ive rsity of 00:00:00 [facility] Hep B, Adol or Pedi 2003-01-01 Completed Unive rsity of Dosage 00:00:00 [facility] Pneumococcal 7 2003-01-01 Completed [facility] Conjugate, PCV7 00:00:00 [facility]Prevnar7[facility] DTAP 2003-01-01 Completed [facility] 00:00:00 [facility] HIB 4 Dose Schedule 2003-01-01 Completed [facility] 00:00:00 [facility] Hep B, Adol or Pedi 2003-01-01 Completed [facility] Dosage 00:00:00 [facility] Pneumococcal 7 2003-01-01 Completed [facility] Conjugate, PCV7 00:00:00 [facility] DTAP 2003-01-01 Completed [facility] 00:00:00 [facility] HIB 4 Dose Schedule 2003-01-01 Completed [facility] 00:00:00 [facility] Hep B, Adol or Pedi 2003-01-01 Completed [facility] Dosage 00:00:00 [facility] Pneumococcal 7 2003-01-01 Completed [facility] Conjugate, PCV7 00:00:00 [facility] ([facility] DTAP 2003-01-01 Completed [facility] 00:00:00 [facility] HIB 4 Dose Schedule 2003-01-01 Completed [facility] 00:00:00 [facility] Hep B, Adol or Pedi 2003-01-01 Completed [facility] Dosage 00:00:00 [facility] Pneumococcal 7 2003-01-01 Completed [facility] Conjugate, PCV7 00:00:00 [facility] (Pre[facility] DTAP 2003-01-01 Completed [facility] 00:00:00 [facility] HIB 4 Dose Schedule 2003-01-01 Completed [facility] 00:00:00 [facility] Hep B, Adol or Pedi 2003-01-01 Completed [facility] Dosage 00:00:00 [facility] Pneumococcal 7 2003-01-01 Completed [facility] Conjugate, PCV7 00:00:00 [facility] ([facility] DTAP 2003-01-01 Completed [facility] 00:00:00 [facility] HIB 4 Dose Schedule 2003-01-01 Completed [facility] 00:00:00 [facility] Hep B, Adol or Pedi 2003-01-01 Completed [facility] Dosage 00:00:00 [facility] Pneumococcal 7 2003-01-01 Completed [facility] Conjugate, PCV7 00:00:00 [facility] (Pre[facility]ar[facility] DTAP 2003-01-01 Completed [facility] 00:00:00 [facility] HIB 4 Dose Schedule 2003-01-01 Completed [facility] 00:00:00 [facility] Hep B, Adol or Pedi 2003-01-01 Completed [facility] Dosage 00:00:00 [facility] Pneumococcal 7 2003-01-01 Completed [facility] Conjugate, PCV7 00:00:00 [facility] (Pre[facility]ar[facility] DTAP 2003-01-01 Completed [facility] 00:00:00 [facility] HIB 4 Dose Schedule 2003-01-01 Completed [facility] 00:00:00 [facility] Hep B, Adol or Pedi 2003-01-01 Completed [facility] Dosage 00:00:00 [facility] Pneumococcal 7 2003-01-01 Completed [facility] Conjugate, PCV7 00:00:00 [facility] (Pre[facility]ar[facility] DTAP 2003-01-01 Completed [facility] 00:00:00 [facility] HIB 4 Dose Schedule 2003-01-01 Completed [facility] 00:00:00 [facility] Hep B, Adol or Pedi 2003-01-01 Completed [facility] Dosage 00:00:00 [facility] Pneumococcal 7 2003-01-01 Completed [facility] Conjugate, PCV7 00:00:00 [facility] (Pre[facility]ar[facility] DTAP 2003-01-01 Completed [facility] 00:00:00 [facility] HIB 4 Dose Schedule 2003-01-01 Completed [facility] 00:00:00 [facility] Hep B, Adol or Pedi 2003-01-01 Completed [facility] Dosage 00:00:00 [facility] Pneumococcal 7 2003-01-01 Completed [facility] Conjugate, PCV7 00:00:00 [facility] (Pre[facility]ar[facility] DTAP 2003-01-01 Completed [facility] 00:00:00 [facility] HIB 4 Dose Schedule 2003-01-01 Completed [facility] 00:00:00 [facility] Hep B, Adol or Pedi 2003-01-01 Completed [facility] Dosage 00:00:00 [facility] Pneumococcal 7 2003-01-01 Completed [facility] Conjugate, PCV7 00:00:00 [facility] (Pre[facility]ar[facility] DTAP 2003-01-01 Completed [facility] 00:00:00 [facility] HIB 4 Dose Schedule 2003-01-01 Completed [facility] 00:00:00 [facility] Hep B, Adol or Pedi 2003-01-01 Completed [facility] Dosage 00:00:00 [facility] Pneumococcal 7 2003-01-01 Completed [facility] Conjugate, PCV7 00:00:00 [facility] (Prevnar7[facility] DTAP 2003-01-01 Completed [facility] 00:00:00 [facility] HIB 4 Dose Schedule 2003-01-01 Completed [facility] 00:00:00 [facility] Hep B, Adol or Pedi 2003-01-01 Completed [facility] Dosage 00:00:00 [facility] Pneumococcal 7 2003-01-01 Completed [facility] Conjugate, PCV7 00:00:00 [facility] (Prevnar7[facility] DTAP 2003-01-01 Completed [facility] 00:00:00 [facility] HIB 4 Dose Schedule 2003-01-01 Completed [facility] 00:00:00 [facility] Hep B, Adol or Pedi 2003-01-01 Completed [facility] Dosage 00:00:00 [facility] Pneumococcal 7 2003-01-01 Completed [facility] Conjugate, PCV7 00:00:00 [facility] (Prevnar7[facility] DTAP 2002 Completed [facility] 00:00:00 [facility] HIB 4 Dose Schedule 2002 Completed [facility] 00:00:00 [facility] Pneumococcal 7 2002 Completed [facility] Conjugate, PCV7 00:00:00 [facility] (Prevnar7) [facility] Polio (IPV/OPV) 2002 Completed [facility] 00:00:00 [facility] DTAP 2002 Completed [facility] 00:00:00 [facility] HIB 4 Dose Schedule 2002 Completed [facility] 00:00:00 [facility] Pneumococcal 7 2002 Completed [facility] Conjugate, PCV7 00:00:00 [facility] (Prevnar7[facility] Polio (IPV/OPV) 2002 Completed [facility] 00:00:00 [facility] DTAP 2002 Completed [facility] 00:00:00 [facility] HIB 4 Dose Schedule 2002 Completed [facility] 00:00:00 [facility] Pneumococcal 7 2002 Completed [facility] Conjugate, PCV7 00:00:00 [facility] (Prevnar7[facility] Polio (IPV/OPV) 2002 Completed [facility] 00:00:00 [facility] DTAP 2002 Completed [facility] 00:00:00 [facility] HIB 4 Dose Schedule 2002 Completed [facility] 00:00:00 [facility] Pneumococcal 7 2002 Completed [facility] Conjugate, PCV7 00:00:00 [facility] (Prevnar7[facility] Polio (IPV/OPV) 2002 Completed [facility] 00:00:00 [facility] DTAP 2002 Completed [facility] 00:00:00 [facility] HIB 4 Dose Schedule 2002 Completed [facility] 00:00:00 [facility] Pneumococcal 7 2002 Completed [facility] Conjugate, PCV7 00:00:00 [facility] (Prevnar7[facility] Polio (IPV/OPV) 2002 Completed [facility] 00:00:00 [facility] DTAP 2002 Completed [facility] 00:00:00 [facility] HIB 4 Dose Schedule 2002 Completed [facility] 00:00:00 [facility] Pneumococcal 7 2002 Completed [facility] Conjugate, PCV7 00:00:00 [facility] (Prevnar7[facility] Polio (IPV/OPV) 2002 Completed [facility] 00:00:00 [facility] DTAP 2002 Completed [facility] 00:00:00 [facility] HIB 4 Dose Schedule 2002 Completed [facility] 00:00:00 [facility] Pneumococcal 7 2002 Completed [facility] Conjugate, PCV7 00:00:00 [place] [facility] (Pre[facility]ar[facility] Polio (IPV/OPV) 2002 Completed [facility] 00:00:00 [facility] DTAP 2002 Completed [facility] 00:00:00 [facility] HIB 4 Dose Schedule 2002 Completed [facility] 00:00:00 [facility] Pneumococcal 7 2002 Completed [facility] Conjugate, PCV7 00:00:00 [facility] (Prevnar7) [facility] Polio (IPV/OPV) 2002 Completed [facility] 00:00:00 [facility] DTAP 2002 Completed [facility] 00:00:00 [facility] HIB 4 Dose Schedule 2002 Completed [facility] 00:00:00 [facility] Pneumococcal 7 2002 Completed [facility] Conjugate, PCV7 00:00:00 [facility] (Prevnar7[facility] Polio (IPV/OPV) 2002 Completed [facility] 00:00:00 [facility] DTAP 2002 Completed [facility] 00:00:00 [facility] HIB 4 Dose Schedule 2002 Completed [facility] 00:00:00 [facility] Pneumococcal 7 2002 Completed [facility] Conjugate, PCV7 00:00:00 [facility] (Prevnar7) [facility] Polio (IPV/OPV) 2002 Completed [facility] 00:00:00 [facility] DTAP 2002 Completed [facility] 00:00:00 [facility] HIB 4 Dose Schedule 2002 Completed [facility] 00:00:00 [facility] Pneumococcal 7 2002 Completed [facility] Conjugate, PCV7 00:00:00 [facility] (Prevnar7) [facility] Polio (IPV/OPV) 2002 Completed [facility] 00:00:00 [facility] DTAP 2002 Completed [facility] 00:00:00 [facility] HIB 4 Dose Schedule 2002 Completed [facility] 00:00:00 [facility] Pneumococcal 7 2002 Completed [facility] Conjugate, PCV7 00:00:00 [facility] (Prevnar7[facility] Polio (IPV/OPV) 2002 Completed [facility] 00:00:00 [facility] DTAP 2002 Completed [facility] 00:00:00 [facility] HIB 4 Dose Schedule 2002 Completed [facility] 00:00:00 [facility] Pneumococcal 7 2002 Completed [facility] Conjugate, PCV7 00:00:00 [facility] (Prevnar7) [facility] Polio (IPV/OPV) 2002 Completed [facility] 00:00:00 [facility] DTAP 2002 Completed [facility] 00:00:00 [facility] HIB 4 Dose Schedule 2002 Completed [facility] 00:00:00 [facility] Pneumococcal 7 2002 Completed [facility] Conjugate, PCV7 00:00:00 [facility] (Prevnar7[facility] Polio (IPV/OPV) 2002 Completed [facility] 00:00:00 [facility] DTAP 2002 Completed [facility] 00:00:00 [facility] HIB 4 Dose Schedule 2002 Completed [facility] 00:00:00 [facility] Pneumococcal 7 2002 Completed [facility] Conjugate, PCV7 00:00:00 [facility] (Prevnar7) [facility] Polio (IPV/OPV) 2002 Completed [facility] 00:00:00 [facility] DTAP 2002 Completed [facility] 00:00:00 [facility] HIB 4 Dose Schedule 2002 Completed [facility] 00:00:00 [facility] Pneumococcal 7 2002 Completed [facility] Conjugate, PCV7 00:00:00 [facility] (Prevnar7) [facility] Polio (IPV/OPV) 2002 Completed [facility] 00:00:00 [facility] DTAP 2002 Completed [facility] 00:00:00 [facility] HIB 4 Dose Schedule 2002 Completed [facility] 00:00:00 [facility] Pneumococcal 7 2002 Completed [facility] Conjugate, PCV7 00:00:00 [facility] (Prevnar7) [facility] Polio (IPV/OPV) 2002 Completed [facility] 00:00:00 [facility] DTAP 2002 Completed [facility] 00:00:00 [facility] HIB 4 Dose Schedule 2002 Completed [facility] 00:00:00 [facility] Pneumococcal 7 2002 Completed [facility] Conjugate, PCV7 00:00:00 [facility] (Prevnar7) [facility] Polio (IPV/OPV) 2002 Completed [facility] 00:00:00 [facility] DTAP 2002 Completed [facility] 00:00:00 [facility] HIB 4 Dose Schedule 2002 Completed [facility] 00:00:00 [facility] Pneumococcal 7 2002 Completed [facility] Conjugate, PCV7 00:00:00 [facility] (Prevnar7[facility] Polio (IPV/OPV) 2002 Completed [facility] 00:00:00 [facility] DTAP 2002 Completed [facility] 00:00:00 [facility] HIB 4 Dose Schedule 2002 Completed [facility] 00:00:00 [facility] Pneumococcal 7 2002 Completed [facility] Conjugate, PCV7 00:00:00 [facility] (Prevnar7) [facility] Polio (IPV/OPV) 2002 Completed [facility] 00:00:00 [facility] DTAP 2002 Completed [facility] 00:00:00 [facility] HIB 4 Dose Schedule 2002 Completed [facility] 00:00:00 [facility] Pneumococcal 7 2002 Completed [facility] Conjugate, PCV7 00:00:00 [facility] (Prevnar7) [facility] Polio (IPV/OPV) 2002 Completed [facility] 00:00:00 [facility] DTAP 2002 Completed [facility] 00:00:00 [facility] HIB 4 Dose Schedule 2002 Completed [facility] 00:00:00 [facility] Pneumococcal 7 2002 Completed [facility] Conjugate, PCV7 00:00:00 [facility] (Prevnar7) [facility] Polio (IPV/OPV) 2002 Completed [facility] 00:00:00 [facility] DTAP 2002 Completed [facility] 00:00:00 [facility] HIB 4 Dose Schedule 2002 Completed [facility] 00:00:00 [facility] Pneumococcal 7 2002 Completed [facility] Conjugate, PCV7 00:00:00 [facility] (Prevnar7) [facility] Polio (IPV/OPV) 2002 Completed [facility] 00:00:00 [facility] DTAP 2002 Completed [facility] 00:00:00 [facility] HIB 4 Dose Schedule 2002 Completed [facility] 00:00:00 [facility] Pneumococcal 7 2002 Completed [facility] Conjugate, PCV7 00:00:00 [facility] (Prevnar7) [facility] Polio (IPV/OPV) 2002 Completed [facility] 00:00:00 [facility] DTAP 2002 Completed [facility] 00:00:00 [facility] HIB 4 Dose Schedule 2002 Completed [facility] 00:00:00 [facility] Pneumococcal 7 2002 Completed [facility] Conjugate, PCV7 00:00:00 [facility] (Prevnar7) [facility] Polio (IPV/OPV) 2002 Completed [facility] 00:00:00 [facility] DTAP 2002 Completed [facility] 00:00:00 [facility] HIB 4 Dose Schedule 2002 Completed [facility] 00:00:00 [facility] Pneumococcal 7 2002 Completed [facility] Conjugate, PCV7 00:00:00 [facility] (Prevnar7) [facility] Polio (IPV/OPV) 2002 Completed [facility] 00:00:00 [facility] DTAP 2002 Completed [facility] 00:00:00 [facility] HIB 4 Dose Schedule 2002 Completed [facility] 00:00:00 [facility] Pneumococcal 7 2002 Completed [facility] Conjugate, PCV7 00:00:00 [facility] (Prevnar7) [facility] Polio (IPV/OPV) 2002 Completed [facility] 00:00:00 [facility] DTAP 2002 Completed [facility] 00:00:00 [facility] HIB 4 Dose Schedule 2002 Completed [facility] 00:00:00 [facility] Pneumococcal 7 2002 Completed [facility] Conjugate, PCV7 00:00:00 [facility] (Prevnar7) [facility] Polio (IPV/OPV) 2002 Completed [facility] 00:00:00 [facility] DTAP 2002 Completed [facility] 00:00:00 [facility] HIB 4 Dose Schedule 2002 Completed [facility] 00:00:00 [facility] Pneumococcal 7 2002 Completed [facility] Conjugate, PCV7 00:00:00 [facility] (Prevnar7) [facility] Polio (IPV/OPV) 2002 Completed [facility] 00:00:00 [facility] DTAP 2002 Completed [facility] 00:00:00 [facility] HIB 4 Dose Schedule 2002 Completed [facility] 00:00:00 [facility] Pneumococcal 7 2002 Completed [facility] Conjugate, PCV7 00:00:00 [facility] (Prevnar7) [facility] Polio (IPV/OPV) 2002 Completed [facility] 00:00:00 [facility] DTAP 2002 Completed [facility] 00:00:00 [facility] HIB 4 Dose Schedule 2002 Completed [facility] 00:00:00 [facility] Hep B, Adol or Pedi 2002 Completed [facility] Dosage 00:00:00 [facility] Polio (IPV/OPV) 2002 Completed [facility] 00:00:00 [facility] DTAP 2002 Completed [facility] 00:00:00 [facility] HIB 4 Dose Schedule 2002 Completed [facility] 00:00:00 [facility] Hep B, Adol or Pedi 2002 Completed [facility] Dosage 00:00:00 [facility] Polio (IPV/OPV) 2002 Completed [facility] 00:00:00 [facility] DTAP 2002 Completed [facility] 00:00:00 [facility] HIB 4 Dose Schedule 2002 Completed [facility] 00:00:00 [facility] Hep B, Adol or Pedi 2002 Completed [facility] Dosage 00:00:00 [facility] Polio (IPV/OPV) 2002 Completed [facility] 00:00:00 [facility] DTAP 2002 Completed [facility] 00:00:00 [facility] HIB 4 Dose Schedule 2002 Completed [facility] 00:00:00 [facility] Hep B, Adol or Pedi 2002 Completed [facility] Dosage 00:00:00 [facility] Polio (IPV/OPV) 2002 Completed [facility] 00:00:00 [facility] DTAP 2002 Completed [facility] 00:00:00 [facility] HIB 4 Dose Schedule 2002 Completed [facility] 00:00:00 [facility] Hep B, Adol or Pedi 2002 Completed [facility] Dosage 00:00:00 [facility] Polio (IPV/OPV) 2002 Completed [facility] 00:00:00 [facility] DTAP 2002 Completed [facility] 00:00:00 [facility] HIB 4 Dose Schedule 2002 Completed [facility] 00:00:00 [facility] Hep B, Adol or Pedi 2002 Completed [facility] Dosage 00:00:00 [facility] Polio (IPV/OPV) 2002 Completed [facility] 00:00:00 [facility] DTAP 2002 Completed [facility] 00:00:00 [facility] HIB 4 Dose Schedule 2002 Completed [facility] 00:00:00 [facility] Hep B, Adol or Pedi 2002 Completed [facility] Dosage 00:00:00 [facility] Polio (IPV/OPV) 2002 Completed [facility] 00:00:00 [facility] DTAP 2002 Completed [facility] 00:00:00 [facility] HIB 4 Dose Schedule 2002 Completed [facility] 00:00:00 [facility] Hep B, Adol or Pedi 2002 Completed [facility] Dosage 00:00:00 [facility] Polio (IPV/OPV) 2002 Completed [facility] 00:00:00 [facility] DTAP 2002 Completed [facility] 00:00:00 [facility] HIB 4 Dose Schedule 2002 Completed [facility] 00:00:00 [facility] Hep B, Adol or Pedi 2002 Completed [facility] Dosage 00:00:00 [facility] Polio (IPV/OPV) 2002 Completed [facility] 00:00:00 [facility] DTAP 2002 Completed [facility] 00:00:00 [facility] HIB 4 Dose Schedule 2002 Completed [facility] 00:00:00 [facility] Hep B, Adol or Pedi 2002 Completed [facility] Dosage 00:00:00 [facility] Polio (IPV/OPV) 2002 Completed [facility] 00:00:00 [facility] DTAP 2002 Completed [facility] 00:00:00 [facility] HIB 4 Dose Schedule 2002 Completed [facility] 00:00:00 [facility] Hep B, Adol or Pedi 2002 Completed [facility] Dosage 00:00:00 [facility] Polio (IPV/OPV) 2002 Completed [facility] 00:00:00 [facility] DTAP 2002 Completed [facility] 00:00:00 [facility] HIB 4 Dose Schedule 2002 Completed [facility] 00:00:00 [facility] Hep B, Adol or Pedi 2002 Completed [facility] Dosage 00:00:00 [facility] Polio (IPV/OPV) 2002 Completed [facility] 00:00:00 [facility] DTAP 2002 Completed [facility] 00:00:00 [facility] HIB 4 Dose Schedule 2002 Completed [facility] 00:00:00 [facility] Hep B, Adol or Pedi 2002 Completed [facility] Dosage 00:00:00 [facility] Polio (IPV/OPV) 2002 Completed [facility] 00:00:00 [facility] DTAP 2002 Completed [facility] 00:00:00 [facility] HIB 4 Dose Schedule 2002 Completed [facility] 00:00:00 [facility] Hep B, Adol or Pedi 2002 Completed [facility] Dosage 00:00:00 [facility] Polio (IPV/OPV) 2002 Completed [facility] 00:00:00 [facility] DTAP 2002 Completed [facility] 00:00:00 [facility] HIB 4 Dose Schedule 2002 Completed [facility] 00:00:00 [facility] Hep B, Adol or Pedi 2002 Completed [facility] Dosage 00:00:00 [facility] Polio (IPV/OPV) 2002 Completed [facility] 00:00:00 [facility] DTAP 2002 Completed [facility] 00:00:00 [facility] HIB 4 Dose Schedule 2002 Completed [facility] 00:00:00 [facility] Hep B, Adol or Pedi 2002 Completed [facility] Dosage 00:00:00 [facility] Polio (IPV/OPV) 2002 Completed [facility] 00:00:00 [facility] DTAP 2002 Completed [facility] 00:00:00 [facility] HIB 4 Dose Schedule 2002 Completed [facility] 00:00:00 [facility] Hep B, Adol or Pedi 2002 Completed [facility] Dosage 00:00:00 [facility] Polio (IPV/OPV) 2002 Completed [facility] 00:00:00 [facility] DTAP 2002 Completed [facility] 00:00:00 [facility] HIB 4 Dose Schedule 2002 Completed [facility] 00:00:00 [facility] Hep B, Adol or Pedi 2002 Completed [facility] Dosage 00:00:00 [facility] Polio (IPV/OPV) 2002 Completed [facility] 00:00:00 [facility] DTAP 2002 Completed [facility] 00:00:00 [facility] HIB 4 Dose Schedule 2002 Completed [facility] 00:00:00 [facility] Hep B, Adol or Pedi 2002 Completed [facility] Dosage 00:00:00 [facility] Polio (IPV/OPV) 2002 Completed [facility] 00:00:00 [facility] DTAP 2002 Completed [facility] 00:00:00 [facility] HIB 4 Dose Schedule 2002 Completed [facility] rsity of 00:00:00 [facility] Hep B, Adol or Pedi 2002 Completed Unive rsity of Dosage 00:00:00 [facility] Polio (IPV/OPV) 2002 Completed [facility] 00:00:00 [facility] DTAP 2002 Completed [facility] 00:00:00 [facility] HIB 4 Dose Schedule 2002 Completed Unive rsity of 00:00:00 [facility] Hep B, Adol or Pedi 2002 Completed [facility]ive [facility]ity of Dosage 00:00:00 [facility] Polio (IPV/OPV) 2002 Completed [facility] 00:00:00 [facility] DTAP 2002 Completed University of 00:00:00 [facility] HIB 4 Dose Schedule 2002 Completed Unive rsity of 00:00:00 [facility] Hep B, Adol or Pedi 2002 Completed [facility]ive rsity of Dosage 00:00:00 [facility] Polio (IPV/OPV) 2002 Completed [facility] 00:00:00 [facility] DTAP 2002 Completed [facility] 00:00:00 [facility] HIB 4 Dose Schedule 2002 Completed [facility]ive rsity of 00:00:00 [facility] Hep B, Adol or Pedi 2002 Completed [facility]ive rsity of Dosage 00:00:00 [facility] Polio (IPV/OPV) 2002 Completed [facility] 00:00:00 [facility] DTAP 2002 Completed [facility] 00:00:00 [facility] HIB 4 Dose Schedule 2002 Completed [facility]ive rsity of 00:00:00 [facility] Hep B, Adol or Pedi 2002 Completed [facility]ive [facility]ity of Dosage 00:00:00 [facility] Polio (IPV/OPV) 2002 Completed [facility] 00:00:00 [facility] DTAP 2002 Completed [facility] 00:00:00 [facility] HIB 4 Dose Schedule 2002 Completed [facility]ive rsity of 00:00:00 [facility] Hep B, Adol or Pedi 2002 Completed [facility]ive rsity of Dosage 00:00:00 [facility] Polio (IPV/OPV) 2002 Completed [facility] 00:00:00 [facility] DTAP 2002 Completed [facility] 00:00:00 [facility] HIB 4 Dose Schedule 2002 Completed [facility]ive rsity of 00:00:00 [facility] Hep B, Adol or Pedi 2002 Completed [facility]ive rsity of Dosage 00:00:00 [facility] Polio (IPV/OPV) 2002 Completed [facility] 00:00:00 [facility] DTAP 2002 Completed [facility] 00:00:00 [facility] HIB 4 Dose Schedule 2002 Completed [facility]ive rsity of 00:00:00 [facility] Hep B, Adol or Pedi 2002 Completed [facility]ive rsity of Dosage 00:00:00 [facility] Polio (IPV/OPV) 2002 Completed [facility] 00:00:00 [facility] DTAP 2002 Completed [facility] 00:00:00 [facility] HIB 4 Dose Schedule 2002 Completed [facility]ive rsity of 00:00:00 [facility] Hep B, Adol or Pedi 2002 Completed [facility]ive rsity of Dosage 00:00:00 [facility] Polio (IPV/OPV) 2002 Completed [facility] 00:00:00 [facility] DTAP 2002 Completed [facility] 00:00:00 [facility] HIB 4 Dose Schedule 2002 Completed Unive rsity of 00:00:00 [facility] Hep B, Adol or Pedi 2002 Completed [facility]ive rsity of Dosage 00:00:00 [facility] Polio (IPV/OPV) 2002 Completed [facility] 00:00:00 [facility] DTAP 2002 Completed [facility] 00:00:00 [facility] HIB 4 Dose Schedule 2002 Completed [facility]ive rsity of 00:00:00 [facility] Hep B, Adol or Pedi 2002 Completed [facility]ive rsity of Dosage 00:00:00 [facility] Polio (IPV/OPV) 2002 Completed Universit y [...] 00:00:00 [facility] Hep B, Adol or Pedi 2002 Completed [facility]ive rsity of Dosage 00:00:00 [facility] Hep B, Adol or Pedi 2002 Completed [facility]ive rsity of Dosage 00:00:00 [facility] Hep B, Adol or Pedi 2002 Completed Unive rsity of Dosage 00:00:00 [facility] Hep B, Adol or Pedi 2002 Completed Unive rsity of Dosage 00:00:00 [facility] Hep B, Adol or Pedi 2002 Completed Unive rsity of Dosage 00:00:00 [facility] Hep B, Adol or Pedi 2002 Completed Unive rsity of Dosage 00:00:00 [facility] Hep B, Adol or Pedi 2002 Completed Unive rsity of Dosage 00:00:00 [facility] Hep B, Adol or Pedi 2002 Completed Unive rsity of Dosage 00:00:00 [facility] Hep B, Adol or Pedi 2002 Completed Unive rsity of Dosage 00:00:00 [facility] Hep B, Adol or Pedi 2002 Completed Unive rsity of Dosage 00:00:00 [facility] Vital Signs Vital Name Observation Time Observation Value Comments Source Body temperature 2022-06-16 35.83 Linda University of 17:18: [facility] Body height 2022-06-16 160 cm [facility] 17:18: [facility] Body weight 2022-06-16 50.44 kg University of 17:18: [facility] BMI 2022-06-16 19.70 kg/m2 University of 17:18: [facility] Systolic blood 2022-06-01 94 mm[Hg] erp informed, University o f pressure 05:18: asymptomatic [facility] Diastolic blood 2022-06-01 71 mm[Hg] erp informed, University of pressure 05:18: asymptomatic [facility] Heart rate 2022-06-01 85 /min University 05:18:00 [facility] Respiratory rate 2022-06-01 18 /min [facility] 05:18:00 [facility] Oxygen saturation 2022-06-01 100 /min University of in Arterial blood 05:18:00 [facility] by Pulse oximetry Branch Body temperature 2022-06-01 36.5 Linda [facility] of 04:31:00 [facility] Body height 2022-06-01 160 cm University of 04:31:00 [facility] Body weight 2022-06-01 51.256 kg University of 04:31:00 [facility] BMI 2022-06-01 20.02 kg/m2 University of 04:31:00 [facility] Body temperature 2022-05-19 36.28 Linda [facility] 18:10:00 [facility] Body weight 2022-05-19 51.256 kg University of 18:10:00 [facility] BMI 2022-05-19 20.02 kg/m2 University of 18:10:00 [facility] Body temperature 2022-04-21 36.22 Linda [facility] 20:32:00 [facility] Body height 2022-04-21 160 cm University of 20:32:00 [facility] Body weight 2022-04-21 50.349 kg University of 20:32:00 [facility] BMI 2022-04-21 19.66 kg/m2 University of 20:32:00 [facility] Systolic blood 2022-04-11 110 mm[Hg] University of pressure 03:10:00 [facility] Diastolic blood 2022-04-11 73 mm[Hg] University o f pressure 03:10:00 [facility] Heart rate 2022-04-11 88 /min University of 03:10:00 [facility] Respiratory rate 2022-04-11 18 /min University of 03:10:00 [facility] Oxygen saturation 2022-04-11 100 /min [facility] in Arterial blood 03:10:00 [facility] by Pulse oximetry Branch Body temperature 2022-04-10 36.28 [place] [facility] 22:10:00 [facility] Body weight 2022-04-10 49.896 kg University of 22:10:00 [facility] BMI 2022-04-10 19.80 kg/m2 University of 22:10:00 [facility] Systolic blood 2022-04-10 108 mm[Hg] University of pressure 21:48:00 [facility] Diastolic blood 2022-04-10 75 mm[Hg] University o f pressure 21:48:00 [facility] Heart rate 2022-04-10 127 /min University of 21:48:00 [facility] Body temperature 2022-04-10 36.61 Linda [facility] 21:48:00 [facility] Respiratory rate 2022-04-10 17 /min University of :48:00 [facility] Body height 2022-04-10 158.8 cm University of 21:48:00 [facility] Body weight 2022-04-10 49.896 kg University of :48:00 [facility] BMI 2022-04-10 19.80 kg/m2 University of 21:48:00 [facility] Oxygen saturation 2022-04-10 98 /min University of in Arterial blood 21:48:00 [facility] Pulse oxim[facility] Systolic blood 2022-04-07 104 mm[Hg] University of pressure 18:00:00 [facility] Diastolic blood 2022-04-07 58 mm[Hg] University o f pressure 18:00:00 [facility] Heart rate 2022-04-07 64 /min University of 18:00:00 [facility] Body temperature 2022-04-07 36.39 Linda [facility] 18:00:00 [facility] Respiratory rate 2022-04-07 18 /min University of 18:00:00 [facility] Oxygen saturation 2022-04-07 96 /min University of in Arterial blood 18:00:00 [facility] torito by Pulse oximetry Branch Body height 2022-04-04 161.3 cm University of 23:00:18 [facility] Body weight 2022-04-04 50.349 kg University of :00:18 [facility] BMI 2022-04-04 19.35 kg/m2 University of :00:18 [facility] Heart rate 2022-04-04 109 /min University of :03:00 [facility] Body temperature 2022-04-04 37.72 [place] [facility] 21:03:00 [facility] Respiratory rate 2022-04-04 18 /min University of 21:03:00 [facility] Oxygen saturation 2022-04-04 95 /min University of in Arterial blood 21:03:00 [facility] Pulse oxim[facility] Systolic blood 2022-04-04 98 mm[Hg] University of pressure 21:00:00 [facility] Diastolic blood 2022-04-04 64 mm[Hg] University o f pressure 21:00:00 [facility] Body height 2022-04-04 162.6 cm University of 17:44:00 [facility] Body weight 2022-04-04 50.349 kg University of 17:44:00 [facility] BMI 2022-04-04 19.05 kg/m2 University of 17:44:00 [facility] Systolic blood 2022-04-01 118 mm[Hg] University of pressure 06:00:00 [facility] Diastolic blood 2022-04-01 92 mm[Hg] University o f pressure 06:00:00 [facility] Heart rate 2022-04-01 78 /min University of 06:00:00 [facility] Respiratory rate 2022-04-01 16 /min University of 06:00:00 [facility] Oxygen saturation 2022-04-01 98 /min [facility] Arterial blood 06:00:00 [facility] by Pulse oximetry [place] Body height 2022-04-01 160 cm University of 03:48:00 [facility] Body weight 2022-04-01 56.7 kg University of 03:48:00 [facility] BMI 2022-04-01 22.14 kg/m2 University of 03:48:00 [facility] Height 2020-09-25 165.1 CM 23:56:00 Weight 2020-09-25 2.69 KG 23:56:00 Body temperature 2022-06-16 35.83 Linda [facility] 17:18:00 [facility] Body height 2022-06-16 160 cm University of 17:18:00 [facility] Body weight 2022-06-16 50.44 kg University of 17:18:00 [facility] BMI 2022-06-16 19.70 kg/m2 University of 17:18:00 [facility] Systolic blood 2022-06-16 113 mm[Hg] University of pressure 16:33:00 [facility] Diastolic blood 2022-06-16 79 mm[Hg] University o f pressure 16:33:00 [facility] Heart rate 2022-06-16 112 /min University of 16:33:00 [facility] Respiratory rate 2022-06-16 18 /min University of 16:33:00 [facility] Body height 2022-06-16 160 cm University of 16:33:00 [facility] Body weight 2022-06-16 51.256 kg University of 16:33:00 [facility] BMI 2022-06-16 20.02 kg/m2 University of 16:33:00 [facility] Systolic blood 2022-06-13 117 mm[Hg] University of pressure 16:37:00 [facility] Diastolic blood 2022-06-13 85 mm[Hg] University o f pressure 16:37:00 [facility] Heart rate 2022-06-13 118 /min University of 16:37:00 [facility] Respiratory rate 2022-06-13 18 /min University of 16:37:00 [facility] Body height 2022-06-13 160 cm University of 16:37:00 [facility] Body weight 2022-06-13 50.803 kg University of 16:37:00 [facility] BMI 2022-06-13 19.84 kg/m2 University of 16:37:00 [facility] Oxygen saturation 2022-06-01 100 /min University of in Arterial blood 05:18:00 [facility] by Pulse oximetry [place] Body temperature 2022-06-01 36.5 Linda [facility] of 04:31:00 [facility] Systolic blood 2022-05-19 124 mm[Hg] University of pressure 16:06:00 [facility] Diastolic blood 2022-05-19 85 mm[Hg] University o f pressure 16:06:00 [facility] Heart rate 2022-05-19 103 /min University of 16:06:00 [facility] Respiratory rate 2022-05-19 18 /min University of 16:06:00 [facility] Body height 2022-05-19 160 cm University of 16:06:00 [facility] Body weight 2022-05-19 51.256 kg University of 16:06:00 [facility] BMI 2022-05-19 20.02 kg/m2 University of 16:06:00 [facility] Systolic blood 2022-05-02 115 mm[Hg] University of pressure 13:53:00 [facility] Diastolic blood 2022-05-02 80 mm[Hg] University o f pressure 13:53:00 [facility] Heart rate 2022-05-02 103 /min University of 13:53:00 [facility] Respiratory rate 2022-05-02 18 /min University of 13:53:00 [facility] Body height 2022-05-02 160 cm University of 13:53:00 [facility] Body weight 2022-05-02 51.256 kg University of 13:53:00 [facility] BMI 2022-05-02 20.02 kg/m2 University of 13:53:00 [facility] Body temperature 2022-04-21 36.22 Linda [facility] 20:32:00 [facility] Body height 2022-04-21 160 cm University of 20:32:00 [facility] Body weight 2022-04-21 50.349 kg University of 20:32:00 [facility] BMI 2022-04-21 19.66 kg/m2 University of 20:32:00 [facility] Systolic blood 2022-04-21 104 mm[Hg] University of pressure 15:04:00 [facility] Diastolic blood 2022-04-21 71 mm[Hg] University o f pressure 15:04:00 [facility] Heart rate 2022-04-21 110 /min University of 15:04:00 [facility] Respiratory rate 2022-04-21 18 /min University of 15:04:00 [facility] Body height 2022-04-21 157.5 cm University of 15:04:00 [facility] Body weight 2022-04-21 49.896 kg University of 15:04:00 [facility] BMI 2022-04-21 20.12 kg/m2 University of 15:04:00 [facility] Systolic blood 2022-04-11 110 mm[Hg] University of pressure 03:10:00 [facility] Diastolic blood 2022-04-11 73 mm[Hg] University o f pressure 03:10:00 [facility] Heart rate 2022-04-11 88 /min University of 03:10:00 [facility] Respiratory rate 2022-04-11 18 /min University of 03:10:00 [facility] Oxygen saturation 2022-04-11 100 /min [facility] in Arterial blood 03:10:00 [facility] by Pulse oximetry [place] Body temperature 2022-04-10 36.28 Linda [facility] 22:10:00 [facility] Body weight 2022-04-10 49.896 kg University of 22:10:00 [facility] BMI 2022-04-10 19.80 kg/m2 University of 22:10:00 [facility] Body height 2022-04-10 158.8 cm University of 21:48:00 [facility] Systolic blood 2022-04-06 114 mm[Hg] University of pressure 13:00:00 [facility] Diastolic blood 2022-04-06 71 mm[Hg] University o f pressure 13:00:00 [facility] Heart rate 2022-04-06 92 /min University of 13:00:00 [facility] Body temperature 2022-04-06 36.78 Linda [facility] 13:00:00 [facility] Respiratory rate 2022-04-06 20 /min University of 13:00:00 [facility] Oxygen saturation 2022-04-06 96 /min University in Arterial blood 13:00:00 [facility] by Pulse oximetry [place] Body height 2022-04-04 161.3 cm University of 23:00:18 [facility] Body weight 2022-04-04 50.349 kg University of 23:00:18 [facility] BMI 2022-04-04 19.35 kg/m2 University of 23:00:18 [facility] Systolic blood 2022-03-28 116 mm[Hg] University of pressure 14:54:00 [facility] Diastolic blood 2022-03-28 87 mm[Hg] University o f pressure 14:54:00 [facility] Heart rate 2022-03-28 113 /min University of 14:54:00 [facility] Respiratory rate 2022-03-28 18 /min University of 14:54:00 [facility] Body height 2022-03-28 160 cm University of 14:54:00 [facility] Body weight 2022-03-28 51.71 kg University of 14:54:00 [facility] BMI 2022-03-28 20.19 kg/m2 University of 14:54:00 [facility] Body temperature 2022-02-24 37 Linda [facility] 18:37:00 [facility] Body weight 2022-02-24 51.801 kg University of 18:37:00 [facility] BMI 2022-02-24 20.23 kg/m2 University of 18:37:00 [facility] Systolic blood 2022-02-21 133 mm[Hg] University of pressure 12:51:00 [facility] Diastolic blood 2022-02-21 49 mm[Hg] University o f pressure 12:51:00 [facility] Heart rate 2022-02-21 108 /min University of 12:51:00 [facility] Respiratory rate 2022-02-21 18 /min [facility] 12:51:00 [facility] Body height 2022-02-21 160 cm [facility] 12:51:00 [facility] Oxygen saturation 2022-01-24 98 /min [facility] in Arterial blood 00:45:00 [facility] Pulse oxim[facility] Head 2009-07-13 51 cm [facility] Occipital-frontal 18:51:00 [facility] torito circumference by Branch Tape measure Procedures Procedure Date / Time Performing Clinician Source Performed XR PELVIS 3+ VW 2022-06-16 17:07:12 Arnaldo [facility] CONSENT/REFUSAL FOR 2022-06-01 04:17:40 Doctor Unassigned, [facility] DIAGNOSIS AND TREATMENT [facility] CONSENT/REFUSAL FOR 2022-06-01 04:17:40 Doctor Unassigned, [facility] DIAGNOSIS AND TREATMENT [facility] EMERGENCY SERVICES 2022-05-31 06:01:00 Doctor Fidel, [facility] AGREEMENTS AND [facility] AUTHORIZATIONS XR PELVIS 3+ VW 2022-05-19 16:43:54 Arnaldo [facility] XR PELVIS 3+ VW 2022-05-19 16:43:54 Arnaldo [facility] XR PELVIS 3+ VW 2022-04-21 20:26:51 Arnaldo [facility] XR HIPS 3 VW RIGHT 2022-04-11 02:02:47 Irasema Robledo [facility] XR PELVIS <3 VW 2022-04-11 02:02[facility]47 [facility] VW 2022-04-11 02:02:47 [facility] HIPS 3 VW RIGHT 2022-04-11 02:02:47 Irasema Robledo [facility] POCT TEST 2022-04-11 01:46:00 Irasema Robledo [facility] POCT TEST 2022-04-11 01:46:00 Irasema Robledo [facility] URINALYSIS 2022-04-11 01:45:00 [facility] 2022-04-11 01:45:[address] [facility] COMP. METABOLIC PANEL 2022-04-10 23:02:00 Irasema Robledo [facility] ([id number]) Medical Branch CBC WITH DIFF 2022-04-10 23:02:00 Venkat [facility] CBC WITH DIFF 2022-04-10 23:02:00 Venkat [facility] COMP. METABOLIC PANEL 2022-04-10 23:02:00 Irasema Robledo [facility] ([id number]) Medical Branch EMERGENCY SERVICES 2022-04-10 05:01:00 Doctor Unassigned, [facility] AGREEMENTS AND [facility] AUTHORIZATIONS EMERGENCY DEPARTMENT 2022-04-10 05:01:00 Doctor Unassigned, [facility] DOCUMENTS [facility] XR CLAVICLE COMP 2022-04-05 19:40:00 Lobo Castano [facility] BILATERAL [facility] XR CLAVICLE COMP 2022-04-05 19:40:00 Lobo Castano [facility] BILATERAL [facility] URINALYSIS 2022-04-05 11:07:00 Greg [facility] URINALYSIS 2022-04-05 11:07:00 Greg [facility] CBC WITH DIFF 2022-04-05 10:24:00 Anant [facility] BASIC METABOLIC PANEL 2022-04-05 10:24:00 Anant [facility] (NA, K, CL, CO2, GLUCOSE, [facility] [facility] BUN, CREATININE, [place]) BASIC METABOLIC PANEL 2022-04-05 10:24:00 Anant [facility] (NA, K, CL, CO2, GLUCOSE, [facility] BUN, CREATININE, [place]) CBC WITH DIFF 2022-04-05 10:24:00 Anant [facility] COVID-19 (ID NOW RAPID 2022-04-05 00:38:00 Anant [facility] TESTING) [facility] LAB ONLY COVID 2022-04-05 00:38:00 Jimena Ny [facility] INTERPRETATION [facility] COVID-19 (ID NOW RAPID 2022-04-05 00:38:00 Jimena Ny [facility] TESTING) [facility] LAB ONLY COVID 2022-04-05 00:38:00 Jimena Ny [facility] INTERPRETATION [facility] [facility] TROPONIN I 2022-04-05 00:25:00 Chou [facility] [place] Andrea TROPONIN I 2022-04-05 00:25:00 Chou [facility] Andrea XR SHOULDER 2+ VW RIGHT 2022-04-05 00:11:00 Chou [facility] Andrea XR KNEE 3 VW LEFT 2022-04-05 00:11:00 Chou [facility] Andrea XR FOOT 3+ VW LEFT 2022-04-05 00:11:00 Chou [facility] Andrea XR PELVIS 3+ VW 2022-04-05 00:11:00 Flo [facility] XR KNEE <3 VW RIGHT 2022-04-05 00:11:00 Flo [facility] XR FOOT 3+ VW LEFT 2022-04-05 00:11:00 Chou [facility] [place] Andrea XR KNEE <3 VW RIGHT 2022-04-05 00:11:00 Flo [facility] XR KNEE 3 VW LEFT 2022-04-05 00:11:00 Chou [facility] Andrea XR PELVIS 3+ VW 2022-04-05 00:11:00 Flo [facility] XR SHOULDER 2+ VW RIGHT 2022-04-05 00:11:00 Chou [facility] Andrea HB ECG ROUTINE & RHYTHM 2022-04-04 23:08:36 [facility]ou [facility] Andrea HB ECG ROUTINE & RHYTHM 2022-04-04 23:08:36 Chou [facility] [place] Andrea HB ABO GROUPING 2022-04-04 19:55:00 Nolvia Husain [place] [facility] [place] [facility] HB ABO GROUPING 2022-04-04 19:55:00 Nolvia Husain [place] [facility] [place] [facility] CT TRAUMA HEAD WO 2022-04-04 19:10:01 Nolvia Husain [facility] CONTRAST Medical Branch CT TRAUMA CERVICAL SPINE 2022-04-04 19:10:01 Nolvia Husain [facility] CONTRAST Medical Branch CT TRAUMA THORACIC SPINE 2022-04-04 19:10:01 Nolvia Husain [facility] CONTRAST Medical Branch CT TRAUMA LUMBAR SPINE WO 2022-04-04 19:10:01 [facility] [place] CONTR[facility] Medical Branch CT TRAUMA HEAD WO 2022-04-04 19:10:01 Nolvia Husain [facility] CONTRAST Medical Branch CT TRAUMA CERVICAL SPINE 2022-04-04 19:10:01 Nolvia Husain [facility] CONTRAST Medical Branch CT TRAUMA THORACIC SPINE 2022-04-04 19:10:01 Nolvia Husain [facility] CONTRAST Medical Branch CT TRAUMA LUMBAR SPINE WO 2022-04-04 19:10:01 Nolvia Husain [facility] CONTRAST Medical Branch CT TRAUMA THORAX W 2022-04-04 19:08:26 Nolvia Husain [facility] CONTRAST Medical Branch CT TRAUMA ABDOMEN PELVIS 2022-04-04 19:08:26 Nolvia Husain [facility] CONTRAST Medical Branch CT TRAUMA THORAX W 2022-04-04 19:08:26 Nolvia Husain [facility] CONTRAST Medical Branch CT TRAUMA ABDOMEN PELVIS 2022-04-04 19:08:26 Nolvia Husain [facility] CONTRAST Medical Branch ABORH CONFIRMATION (LAB 2022-04-04 19:02:00 Nolvia Husain [facility] ONLY) Medical Branch ABORH CONFIRMATION (LAB 2022-04-04 19:02:00 Nolvia Husain [facility] ONLY) Medical Branch LIPASE 2022-04-04 18:35:00 Nolvia Husain [facility] TEST, SERUM 2022-04-04 18:35:00 Nolvia Husain [facility] COMP. METABOLIC PANEL 2022-04-04 18:35:00 Nolvia Husain [facility] ([id number]) Medical Branch COMP. METABOLIC PANEL 2022-04-04 18:35:00 Nolvia Husain [facility] ([id number]) Medical Branch LIPASE 2022-04-04 18:35:00 Nolvia Husain [facility] TEST, SERUM 2022-04-04 18:35:00 Nolvia Husain [facility] CBC WITH DIFF 2022-04-04 18:20:00 Nolvia Husain [facility] CBC WITH DIFF 2022-04-04 18:20:00 Nolvia Husain [facility] EMERGENCY SERVICES 2022-04-04 05:01:00 Doctor Unassigned, [facility] AGREEMENTS AND [place] [facility] AUTHORIZATIONS EMERGENCY DEPARTMENT 2022-04-04 05:01:00 Doctor Unassigned, [facility] DOCUMENTS [facility] EMERGENCY SERVICES 2022-04-04 05:01:00 Doctor Unassigned, [facility] AGREEMENTS AND [place] [facility] AUTHORIZATIONS EMERGENCY DEPARTMENT 2022-04-04 05:01:00 Doctor Unassigned, [facility] DOCUMENTS [place] [facility] POCT TEST 2022-04-01 04:37:00 Deonna [facility]rez [facility] POCT TEST 2022-04-01 04:37:00 Deonna Melendrez [facility] LIPASE 2022-04-01 04:36:00 Deonna Melendrez [facility] COMP. METABOLIC PANEL 2022-04-01 04:36:00 Deonna Melendrez [facility] ([id number]) Medical Branch CBC WITH DIFF 2022-04-01 04:36:00 Deonna Melendrez [facility] URINALYSIS 2022-04-01 04:36:00 Deonna Melendrez [facility] CBC WITH DIFF 2022-04-01 04:36:00 Deonna Melendrez [facility] COMP. METABOLIC PANEL 2022-04-01 04:36:00 Deonna Melendrez [facility] ([id number]) [facility] [place] URINALYSIS 2022-04-01 04:36:00 Deonna Melendrez [facility] LIPASE 2022-04-01 04:36:00 Deonna Melendrez [facility] NOTICE OF PRIVACY 2022-04-01 03:37:12 [facility] [place] [facility] [place] NOTICE OF PRIVACY 2022-04-01 03:37:12 [facility] Fidel[facility] [place] [facility] [place] CONSENT/REFUSAL FOR 2022-04-01 03:36:55 Doctor Rosamarialanette [facility] DIAGNOSIS AND TREATMENT [place] [facility] [place] CONSENT/REFUSAL FOR 2022-04-01 03:36:55 Doctor Fidel [facility] DI[facility]NOSIS [facility]MENT [facility] EM[facility]GENCY SERVICES 2022-03-31 05:01:00 Doctor Fidel [facility] AGREEMENTS AND [place] [facility] AUTHORIZATIONS SARS-COV-2 COVID-19 2022-03-17 16:49:14 Doctor Parra [facility] MIKE-SUCROSE VACCINE 12 [place] [facility] YRS+, BIVALENT 0.3ML, IM, (PFIZER ARITA TOP BOOSTER) SARS-COV-2 COVID-19 2022-03-17 16:49:14 Doctor Fidel [facility] MIKE-SUCROSE VACCINE 12 [place] [facility] [place] YRS+, BIVALENT 0.3ML, IM, (PFIZER ARITA TOP BOOSTER) XR PELVIS 3+ VW 2022-02-24 18:13:00 Bouchra Rizzo [facility] EXTERNAL PROVIDER RECORDS 2022-02-22 05:01:00 Doctor Parra [facility] [place] [facility] [place] EMERGENCY SERVICES 2022-01-23 05:01:00 Doctor Parra [facility] AGREEMENTS AND [place] [facility] AUTHORIZATIONS EMERGENCY DEPARTMENT 2022-01-23 05:01:00 Doctor Unassigned, [facility] DOCUMENTS [place] [facility] Encounters Start End Encounter Admission Attending Care Care Encounter Source Date/Time Date/Time Type Type Clinicians Facility Department ID 2021-11-[address] [facility] [id number] CT 11:00:33 [id number] [facility] 2021-07-09 Inpatient [facility] [id number] [facility] 12:46:00 14 2021-05-25 Inpatient [facility] [id number] [facility] 23:19:00 94 2021-04-30 Emergency [facility] [id number] Univers 23:08:18 ity of [facility] 2022-06-16 2022-06-16 Hospital [facility] 1.2.840.114 [id number] Univers 10:58:02 23:59:00 Encounter [place] PRIMARY 350.1.13.10 [id number] Or dical [address] [place] 2022-06-16 2022-06-16 [facility] [id number] Univers 10:20:00 11:48:13 BOUCHRA ity [facility] [place] 2022-06-16 2022-06-16 Office [facility] 1.2.603.867 [id number] Univers 10:20:00 11:48:13 Visit [facility] PRIMARY 350.1.13.10 [id number] Me dical 198 [place] 2022-06-16 2022-06-16 Travel 1.2.840.1 1.2.071.982 [id number] Univers 00:00:00 00:00:00 49710.1.1 350.1.13.10 ity of 3.104.2.7 [place].3.698 [place] 084.8 [place] .8 [place] 2022-06-13 2022-06-13 Outpatient R REYNALDO [facility] [id number] Univers 11:00:00 11:34:17 JAMES ity o f [facility] 2022-06-13 2022-06-13 Travel 1.2.840.1 1.2.141.254 [id number] Univers 00:00:00 00:00:00 67822.1.1 350.1.13.10 ity of 3.104.2.7 [place]7.3.698 [place] .3.821521 084.8 Medica l .8 [place] 2022-05-31 2022-06-01 Emergency X PARVIN, RUST ERT [id number] Univers 22:37:00 00:11:00 DEONNA ity of [facility] 2022-05-31 2022-06-01 Emergency Melendrez, 1.2.840.3 [id number] Univers 22:37:00 00:11:00 Deonna Murillo 45538.1.1 ity of 3.104.2.7 [place] .3.670014 Med[place] .8 [place] 2022-05-31 2022-05-31 Travel 1.2.840.1 1.2.325.784 [id number] [id number] Univers 00:00:00 00:00:00 12746.1.1 350.1.13.10 ity of 3.104.2.7 [place].7.3.698 [place] .3.941948 084.8 Med[place] l .8 [place] 2022-05-23 2022-05-23 Outpatient R SELF, [facility] [id number] Univers 10:15:00 10:15:00 JAMES erickson o f [facility] 2022-05-19 2022-05-19 [facility].2.840[facility]9 [id number] Univers 10:33:33 23:59:00 Encounter Bouchra 54991.1.1 it y of 3.104.2.7 [place] .3.954032 Medica l .8 [place] 2022-05-19 2022-05-19 [facility], 1.2.840.5 [id number] Univers 12:50:00 12:50:00 Visit Bouchra 48752.1.1 ity of 3.104.2.7 [place] .3.565069 Medica l .8 [place] 2022-05-19 2022-05-19 [facility] [id number] Univers 12:50:00 12:42:46 BOUCHRA bernaly of [facility] 2022-05-19 2022-05-19 Travel 1.2.840.1 1.2.899.089 [id number] Univers 00:00:00 00:00:00 46130.1.1 350.1.13.10 ity of 3.104.2.7 [place]7.3.698 [place] .3.808446 084.8 Medica l .8 [place] 2022-05-02 2022-05-02 Outpatient R REYNALDO, [facility] [id number] Univers 08:45:00 09:32:43 JAMES ity o f [facility] 2022-05-02 2022-05-02 Travel 1.2.840.1 1.2.183.105 [id number] Univers 00:00:00 00:00:00 20200.1.1 350.1.13.10 ity of 3.104.2.7 [place]7.3.698 [place] .3.847069 084.8 Medica l .8 [place] 2022-04-21 2022-04-21 [facility] [id number] Univers 15:08:38 23:59:00 BOUCHRA erickson of [facility] 2022-04-21 2022-04-21 [facility], 1.2.840.2 [id number] Univers 15:08:38 23:59:00 Encounter Bouchra 02503.1.1 it y of 3.104.2.7 [place] .3.343847 Medica l .8 [place] 2022-04-21 2022-04-21 Office [facility], 1.2.840.4 [id number] Univers 15:20:00 16:19:45 Visit Bouchra 08576.1.1 ity of 3.104.2.7 [place] .3.892111 Medica l .8 [place] 2022-04-21 2022-04-21 Travel 1.2.840.1 1.2.538.227 [id number] [id number] Univers 00:00:00 00:00:00 42203.1.1 350.1.13.10 ity of 3.104.2.7 [place].7.3.698 [place] .3.600866 084.8 Medica l .8 [place] 2022-04-10 2022-04-10 Emergency X ROBLEDO, RUST ERT [id number] Univers 17:11:00 22:14:00 IRASEMA ity of [facility] 2022-04-10 2022-04-10 Emergency Robledo, 1.2.840.0 [id number] Univers 17:11:00 22:14:00 Irasema 30034.1.1 ity of 3.104.2.7 [place] .3.526192 Medica l .8 [place] 2022-04-10 2022-04-10 Urgent MariShivani gardner 1.2.840.1 [id number] Univers 16:40:00 18:22:07 [facility] 73389.1.1 ity of 3.104.2.7 [place] .3.556969 Medica l .8 [place] 2022-04-10 2022-04-10 Outpatient R MARI [facility] [id number] Univers 16:40:00 16:40:00 SHIVANI erickson o f [facility] 2022-04-10 2022-04-10 Travel 1.2.840.1 1.2.665.843 0910 [id number] Univers 00:00:00 00:00:00 49419.1.1 350.1.13.10 ity of 3.104.2.7 [place].7.3.698 [place] .3.395433 084.8 Medica l .8 [place] 2022-04-08 2022-04-08 Transition Moise, 1.2.840.1 [id number] Univers 00:00:00 00:00:00 of Care Negrita 04434.1.1 i ty of 3.104.2.7 [place] .3.098785 Medica l .8 [place] 2022-04-04 2022-04-07 Hospital Person, 1.2.840.3 [id number] Univers 17:33:00 17:00:00 Encounter Keagan 86114.1.1 it y of 3.104.2.7 [place] .3.045795 Medica l .8 [place] 2022-04-06 2022-04-[facility], 1.2.840.9 [id number] Univers 00:00:00 00:00:00 Management Care 89992.1.1 i ty of Transition 3.104.2.7 Harley as .3.552630 Medica l .8 [place] 2022-04-04 2022-04-04 Emergency X RODRIGUE, RUST ERT [id number] Univers 12:41:00 16:56:00 NOLVIA ity [facility] [place] 2022-04-04 2022-04-04 Emergency X RODRIGUE RUST ERT [id number] Univers 12:41:00 16:56:00 NOLVIA bernaly [facility] [place] 2022-04-04 2022-04-04 Emergency Rodrigue, 1.2.840.0 [id number] Univers 12:41:00 16:56:00 Nolvia 26426.1.1 ity of 3.104.2.7 [place] .3.528600 Medica l .8 [place] 2022-04-04 2022-04-04 Travel 1.2.840.1 1.2.809.505 4540 [id number] Univers 00:00:00 00:00:00 74375.1.1 350.1.13.10 ity of 3.104.2.7 [place].7.3.698 [place] .3.077594 084.8 Medica l .8 [place] 2022-03-31 2022-04-01 Emergency X PARVIN RUST ERT [id number] Univers 22:46:00 01:29:00 DEONNA ity [facility] [place] 2022-03-31 2022-04-01 Emergency Parvin, 1.2.840.8 [id number] Univers 22:46:00 01:29:00 Deonna Murillo 63088.1.1 ity of 3.104.2.7 [place] .3.787892 Medica l .8 [place] 2022-03-31 2022-03-31 Orders Doctor 1.2.840.9 [id number] Univers 00:00:00 00:00:00 Only Unassigned, 60841.1.1 ity of [place] 3.104.2.7 [place] .3.510961 Medica l .8 [place] 2022-03-31 2022-03-31 Travel 1.2.840.1 1.2.177.656 3231 0137 Univers 00:00:00 00:00:00 88758.1.1 350.1.13.10 ity of 3.104.2.7 4.[place].7.3.698 [place] .3.429786 084.8 Medica l .8 [place] 2022-03-28 2022-03-28 Outpatient R REYNALDO [facility] [id number] Univers 10:15:00 12:05:24 JAMES erickson o f [facility] 2022-03-28 2022-03-28 Travel 1.2.840.1 1.2.913.492 0943 [id number] Univers 00:00:00 00:00:00 32553.1.1 350.1.13.10 ity of 3.104.2.7 [place].7.3.698 [place] .3.155847 084.8 Medica l .8 [place] 2022-03-17 2022-03-17 Imm/Vignesh Bryan P 1.2.840.1 [id number] Univers 11:30:00 12:25:54 Visit Ana Luisa [facility] 97451.1.1 ity of 3.104.2.7 [place] .3.409952 Medica l .8 [place] 2022-03-17 2022-03-17 [facility] [id number] Univers 10:30:00 11:13:04 VIGNESH erickson of [facility] 2022-03-17 2022-03-17 Travel 1.2.840.1 1.2.662.719 1709 [id number] Univers 00:00:00 00:00:00 45104.1.1 350.1.13.10 ity of 3.104.2.7 [place].7.3.698 [place] .3.418161 084.8 Medica l .8 [place] 2022-02-24 2022-02-24 [facility], 1.2.840.7 [id number] Univers 13:02:19 23:59:00 Encounter Bouchra 28949.1.1 it y of 3.104.2.7 [place] .3.980781 Medica l .8 [place] 2022-02-24 2022-02-24 [facility], 1.2.840.0 [id number] Univers 13:02:19 23:59:00 Encounter Bouchra 35223.1.1 it y of 3.104.2.7 [place] .3.055053 Medica l .8 [place] 2022-02-24 2022-02-24 [facility] [id number] Univers 13:00:00 14:33:28 BOUCHRA ity of [facility] 2022-02-24 2022-02-24 [facility], 1.2.840.9 [id number] Univers 13:00:00 14:33:28 Visit Bouchra 79331.1.1 ity of 3.104.2.7 [place] .3.852521 Medica l .8 [place] 2022-02-24 2022-02-24 [facility] [id number] Univers 13:00:00 13:00:00 BOUCRHA ity of [facility] 2022-02-24 2022-02-24 Travel 1.2.840.1 1.2.375.090 8014 [id number] Univers 00:00:00 00:00:00 87637.1.1 350.1.13.10 ity of 3.104.2.7 [place].7.3.698 [place] .3.997224 084.8 Medica l .8 [place] 2022-02-22 2022-02-22 Orders Doctor 1.2.840.3 [id number] Univers 00:00:00 00:00:00 Only Unassigned, 57123.1.1 ity of [place] 3.104.2.7 [place] .3.077337 Medica l .8 Branch 2022-02-22 2022-02-22 Orders Doctor 1.2.840.2 [id number] Univers 00:00:00 00:00:00 Only Unassigned, 54143.1.1 ity of [place] 3.104.2.7 [place] .3.595600 Medica l .8 Branch 2022-02-21 2022-02-21 Outpatient R SELF, [facility] [id number] Univers 08:00:00 08:48:33 JAMES ity o f [facility] 2022-02-21 2022-02-21 Travel 1.2.840.1 1.2.390.714 1737 [id number] Univers 00:00:00 00:00:00 59345.1.1 350.1.13.10 ity of 3.104.2.7 4.2.7.3.698 [place] .3.480412 084.8 Medica l .8 Branch 2022-02-21 2022-02-21 Travel 1.2.840.1 1.2.903.748 9670 [id number] Univers 00:00:00 00:00:00 72940.1.1 350.1.13.10 ity of 3.104.2.7 4.2.7.3.698 [place] .3.153961 084.8 Medica l .8 [place] 2022-01-23 2022-01-23 Emergency X CHECO K RUST ERT [id number] Univers 19:42:00 21:04:00 ity of [facility] 2022-01-23 2022-01-23 Emergency Checo K 1.2.840.0 [id number] Univers 19:42:00 21:04:00 Bree 27451.1.1 ity of 3.104.2.7 [place] .3.558213 Medica l .8 [place] 2022-01-23 2022-01-23 Emergency Checo K 1.2.840.8 [id number] [facility] 19:42:00 21:04:00 Bree 97693.1.1 ity of 3.104.2.7 [place] .3.358483 Medica l .8 [place] 2022-01-23 2022-01-23 Travel 1.2.840.1 1.2.624.840 [id number] Univers 00:00:00 00:00:00 38797.1.1 350.1.13.10 ity of 3.104.2.7 4.2.7.3.698 [place] .3.597326 084.8 Medica l .8 [place] 2022-01-23 2022-01-23 Travel 1.2.840.1 1.2.884.626 6304 [id number] [facility] 00:00:00 00:00:00 53269.1.1 350.1.13.10 ity of 3.104.2.7 4.2.7.3.698 [place] .3.549440 084.8 Medica l .8 [place] 2022-01-17 2022-01-17 Outpatient R SELF, [facility] [id number] Univers 10:15:00 11:23:04 JAMES erickson [facility] 2022-01-17 2022-01-17 Outpatient R SELF, [facility] [id number] Univers 10:15:00 11:23:04 JAMES erickson [facility] 2022-01-17 2022-01-17 Travel 1.2.840.1 1.2.696.268 [id number] [id number] Univers 00:00:00 00:00:00 81904.1.1 350.1.13.10 ity of 3.104.2.7 4.2.7.3.698 [place] .3.457946 084.8 Medica l .8 [place] 2022-01-17 2022-01-17 Travel 1.2.840.1 1.2.958.476 2308 [id number] Univers 00:00:00 00:00:00 55585.1.1 350.1.13.10 ity of 3.104.2.7 4.2.7.3.698 [place] .3.255491 084.8 Medica l .8 [place] 2021-12-31 2021-12-31 Outpatient R ASH RAMIREZ [facility] [id number] Univers 16:00:00 17:22:54 ity of [facility] 2021-12-31 2021-12-31 Office Ash Ramirez 1.2.840.9 [id number] Univers 16:00:00 17:22:54 Visit Maggie Brooks 29669.1.1 ity of 3.104.2.7 [place] .3.957572 Medica l .8 [place] 2021-12-31 2021-12-31 Office Ash Ramirez 1.2.840.4 [id number] Univers 16:00:00 17:22:54 Visit Maggie Brooks 67640.1.1 ity of 3.104.2.7 [place] .3.422536 Medica l .8 [place] 2021-12-31 2021-12-31 Outpatient R ASH RAMIREZ [facility] [id number] Univers 16:00:00 16:00:00 ity of [facility] 2021-12-31 2021-12-31 Travel 1.2.840.1 1.2.388.555 [id number] [id number] [facility] 00:00:00 00:00:00 68024.1.1 350.1.13.10 ity of 3.104.2.7 4.2.7.3.698 [place] .3.871473 084.8 Medica l .8 [place] 2021-12-31 2021-12-31 Travel 1.2.840.1 1.2.350.914 5217 7179 Univers 00:00:00 00:00:00 90080.1.1 350.1.13.10 ity of 3.104.2.7 4.2.7.3.698 [place] .3.514429 084.8 Medica l .8 [place] 2021-12-20 2021-12-20 Outpatient R SELF, [facility] [id number] Univers 10:30:00 11:58:18 JAMES ity o f [facility] 2021-12-20 2021-12-20 Travel 1.2.840.1 1.2.657.526 1513 [id number] Univers 00:00:00 00:00:00 41102.1.1 350.1.13.10 ity of 3.104.2.7 4.2.7.3.698 [place] .3.863045 084.8 Medica l .8 [place] 2021-12-20 2021-12-20 Travel 1.2.840.1 1.2.926.303 5346 [id number] Univers 00:00:00 00:00:00 64602.1.1 350.1.13.10 ity of 3.104.2.7 4.2.7.3.698 [place] .3.016092 084.8 Medica l .8 [place] 2021-12-20 2021-12-20 Travel 1.2.840.1 1.2.242.752 6579 9777 Univers 00:00:00 00:00:00 45333.1.1 350.1.13.10 ity of 3.104.2.7 4.2.7.3.698 [place] .3.042950 084.8 Medica l .8 [place] 2021-12-13 2021-12-13 Outpatient R ANGELICA, [facility] [id number] Univers 08:00:00 08:00:00 HANDY ity of [facility] 2021-12-06 2021-12-06 Urgent Shivani Guerra 1.2.840.1 [id number] Univers 12:00:00 12:16:45 Akiko Gonzalez 60896.1.1 ity of 3.104.2.7 [place] .3.496677 Medica l .[facility] [place] 2021-12-06 2021-12-06 Urgent Shivani Guerra 1.2.840.1 [id number] Univers 12:00:00 12:16:45 Akiko Gonzalez 78003.1.1 ity of 3.104.2.7 [place] .3.082923 Medica l .8 [place] 2021-12-06 2021-12-06 Outpatient R MARINA [facility] [id number] Univers 12:00:00 12:16:45 AKIKO ity of [facility] 2021-12-06 2021-12-06 Urgent Shivani Guerra 1.2.840.1 [id number] [facility] 12:00:00 12:16:45 Akiko Gonzalez 15843.1.1 ity of 3.104.2.7 [place] .3.152482 Medica l .8 [place] 2021-12-06 2021-12-06 Travel 1.2.840.1 1.2.939.215 8269 [id number] Univers 00:00:00 00:00:00 98835.1.1 350.1.13.10 ity of 3.104.2.7 4.2.7.3.698 [place] .3.567337 084.8 Medica l .8 [place] 2021-12-06 2021-12-06 Travel 1.2.840.1 1.2.585.786 5338 2730 Univers 00:00:00 00:00:00 39101.1.1 350.1.13.10 ity of 3.104.2.7 4.2.7.3.698 [place] .3.591668 084.8 Medica l .8 [place] 2021-12-06 2021-12-06 Travel 1.2.840.1 1.2.090.602 3518 2730 Univers 00:00:00 00:00:00 08591.1.1 350.1.13.10 ity of 3.104.2.7 4.2.7.3.698 [place] .3.630583 084.8 Medica l .8 [place] 2021-11-26 2021-11-26 Office Fish, Ash 1.2.840.4 [id number] [facility] 15:00:00 15:40:48 Visit 93269.1.1 ity of 3.104.2.7 [place] .3.663959 Medica l .8 [place] 2021-11-26 2021-11-26 Outpatient R ASH RAMIREZ [facility] [id number] Univers 15:00:00 15:40:48 ity of [facility] 2021-11-26 2021-11-26 Office Ash Ramirez 1.2.840.2 [id number] Univers 15:00:00 15:40:48 Visit 76328.1.1 ity of 3.104.2.7 [place] .3.333466 Medica [facility] .[facility] [place] 2021-11-26 2021-11-26 Outpatient R ASH RAMIREZ [facility] [id number] Univers 15:00:00 15:00:00 ity of [facility] 2021-11-26 2021-11-26 Travel 1.2.840.1 1.2.516.859 [id number] Univers 00:00:00 00:00:00 18888.1.1 350.1.13.10 ity of 3.104.2.[place]698 [place] .3.037917 084.8 Medica l .8 [place] 2021-11-26 2021-11-26 Travel 1.2.840.1 1.2.646.950 [id number] Univers 00:00:00 00:00:00 94287.1.1 350.1.13.10 ity of 3[place]104.2.[place] .3.298157 084.8 Medica l .[facility] [place] 2021-11-23 2021-11-23 Outpatient R ASH RAMIREZ [facility] [id number] Univers 14:00:00 14:00:00 ity of [facility] 2021-11-19 2021-11-19 [facility] Maria Antonia, 1.2.840.2 [id number] Univers 17:58:13 23:59:00 Encounter Vania 29347.1.1 it y of 3.104.2.7 [place] .3.725471 Medica l .[facility] [place] 2021-11-19 2021-11-19 Outpatient R MARIA ANTONIA [facility] [id number] Univers 17:58:13 23:59:00 RANIA ity of [facility] 2021-11-19 2021-11-19 Hospital [facility] 1.2.310.889 [id number] Univers 17:58:13 23:59:00 Encounter Vania HEALTH 350.1.13.10 ity of [facility] 4.2.7.2.686 Harley as OLIVIA?BLEA [phone] Or dical [facility] [address] [place] MEDICAL [facility] 2021-11-19 2021-11-19 [facility], 1.2.840.9 [id number] Univers 17:58:13 23:59:00 Encounter Vania 76443.1.1 it y of 3.104.2.7 [place] .3.300236 Medica l .[facility] [place] 2021-11-19 2021-11-19 Urgent Ebrahim, 1.2.840.3 [id number] Univers 17:20:00 18:04:46 Care Rania 63701.1.1 ity of 3.104.2.7 [place] .3.386633 Medica l .[facility] [place] 2021-11-19 2021-11-19 Urgent Ebrahim, [facility] 1.2.840.114 [id number] Univers 17:20:00 18:04:46 Care Vania HEALTH 350.1.13.10 it y of [place] 4.2.7.2.686 Harley as OLIVIA?BLEA [phone] Or dical [facility] [address] [place] MEDICAL OFFICE BUILDING 2021-11-19 2021-11-19 Urgent Ebrahim, 1.2.840.9 [id number] Univers 17:20:00 18:04:46 Care Rania 21551.1.1 ity of 3.104.2.7 [place] .3.681058 Medica l .[facility] [place] 2021-11-19 2021-11-19 Travel 1.2.840.1 1.2.082.173 [id number] Univers 00:00:00 00:00:00 33728.1.1 350.1.13.10 ity of 3.104.2.[place]3.698 [place] .3.748617 084.8 Medica l .8 [place] 2021-11-19 2021-11-19 Travel 1.2.840.1 1.2.800.267 [id number] Univers 00:00:00 00:00:00 49243.1.1 350.1.13.10 ity of 3.104.2.[place]3.698 [place] .3.296324 084.8 Medica l .8 [place] 2021-11-17 2021-11-17 Outpatient R LUCINDA WILLS [facility] [id number] Univers 14:45:00 14:45:00 ity of [facility] 2021-11-17 2021-11-17 Outpatient R LUCINDA WILLS [facility] [facility] [id number] Univers 14:45:00 14:45:00 ity of [facility] 2021-11-16 2021-11-16 Telephone Lucinda Wills 1.2.840.7 [id number] Univers 00:00:00 00:00:00 Cam 88770.1.1 ity of 3.104.2.7 [place] .3.849553 [facility] .[facility] [place] 2021-11-16 2021-11-16 Telephone Lucinda Wills 1.2.840.4 [id number] Univers 00:00:00 00:00:00 Cam 97722.1.1 ity of 3.104.2.7 [place] .3.597859 Med[facility] .[facility] [place] 2021-11-16 2021-11-16 Telephone Lucinda Wills 1.2.840.3 [id number] Univers 00:00:00 00:00:00 Cam 07929.1.1 ity of 3.104.2.7 [place] .3.835488 Medica [facility] .[facility] [place] 2021-11-08 2021-11-08 Outpatient R REYNALDO [facility] [id number] Univers 11:15:00 11:40:32 JAMES ity o f [facility] 2021-11-08 2021-11-08 Travel 1.2.840.1 1.2.925.461 6723 9142 Univers 00:00:00 00:00:00 87439.1.1 350.1.13.10 ity of 3.104.2.7 [place].3.698 [place]3.1157[place] 084.8 Med[place] .8 [place] 2021-11-08 2021-11-08 Travel 1.2.840.1 1.2.162.666 6358 9142 Univers 00:00:00 00:00:00 82839.1.1 350.1.13.10 ity of 3.104.2.7 4.[place]7.3.698 [place] .3.031461 084.8 Med[place] l .8 [place] 2021-11-08 2021-11-08 Travel 1.2.840.1 1.2.703.008 9064 9142 Univers 00:00:00 00:00:00 90085.1.1 350.1.13.10 ity of 3.104.2.7 4.[place].7.3.698 [place] .3.261364 084.8 Med[place] l .8 [place] 2021-10-29 2021-10-29 Office Lucinda Wills 1.2.840.4 [id number] Univers 13:00:00 13:28:21 Visit Cam 53269.1.1 ity of 3.104.2.7 [place] .3.779119 Med[facility] .8 [place] 2021-10-29 2021-10-29 Office Lucinda Wills 1.2.840.7 [id number] [id number] Univers 13:00:00 13:28:21 Visit Cam 06321.1.1 ity of 3.104.2.7 [place] .3.107908 Med[facility] .8 [place] 2021-10-29 2021-10-29 Outpatient R LUCINDA WILLS [facility] [id number] Univers 13:00:00 13:28:21 ity of [facility] 2021-10-29 2021-10-29 Office Lucinda Wills 1.2.840.8 [id number] Univers 13:00:00 13:28:21 Visit Cam 30622.1.1 ity of 3.104.2.7 [place] .3.744038 Medica l .8 [place] 2021-10-29 2021-10-29 Outpatient LUCINDA PHAN [facility] [id number] Univers 13:00:00 13:00:00 ity of [facility] 2021-10-29 2021-10-29 Outpatient LUCINDA PHAN [facility] [id number] Univers 13:00:00 13:00:00 ity of [facility] 2021-10-29 2021-10-29 Travel 1.2.840.1 1.2.158.683 8271 6547 [facility] 00:00:00 00:00:00 76249.1.1 350.1.13.10 ity of 3.104.2.7 [place]7.3.698 [place] .3.686233 084.8 Med[place] l .8 [place] 2021-10-29 2021-10-29 Travel 1.2.840.1 1.2.516.978 3584 6547 [facility] 00:00:00 00:00:00 77442.1.1 350.1.13.10 ity of 3.104.2.7 4.[place].7.3.698 [place] .3.784594 084.8 Med[place] l .8 [place] 2021-10-29 2021-10-29 Travel 1.2.840.1 1.2.746.749 5656 6547 [facility] 00:00:00 00:00:00 80706.1.1 350.1.13.10 ity of 3.104.2.7 4.[place].7.3.698 [place] .3.306042 084.8 Med[place] .8 [place] 2021-10-27 2021-10-27 Outpatient R SHIVANI VAUGHN [facility] [id number] Univers 14:30:00 15:05:35 SHIVANI VAUGHN [facility] [place] 2021-10-27 2021-10-27 Outpatient R SHIVANI VAUGHN [facility] [id number] Univers 14:30:00 14:30:00 SHIVANI VAUGHNy of [facility] 2021-10-27 2021-10-27 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 1.2.840.1 [id number] [facility] 12:30:00 12:45:00 Visit Pcp-Lab 01848.1.1 ity of 3.104.2.7 [place] .3.738108 Medica l .[facility] [place] 2021-10-27 2021-10-27 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 1.2.840.1 [id number] [facility] 12:30:00 12:45:00 Visit Pcp-Lab 49100.1.1 ity of 3.104.2.7 [place] .3.173012 Medica l .8 [place] 2021-10-27 2021-10-27 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 1.2.840.1 [id number] [facility] 12:30:00 12:45:00 Visit Pcp-Lab 30603.1.1 ity of 3.104.2.7 [place] .3.673551 Medica l .8 [place] 2021-10-27 2021-10-27 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 1.2.840.1 [id number] [facility] 12:30:00 12:45:00 Visit Pcp-Lab 07411.1.1 ity of 3.104.2.7 [place] .3.884955 Med[facility] .[facility] [place] 2021-10-27 2021-10-27 Travel 1.2.840.1 1.2.701.805 7974 7104 Univers 00:00:00 00:00:00 94436.1.1 350.1.13.10 ity of 3.104.2.7 4.[place].7.3.698 [place] .3.436819 084.8 Med[facility] l .8 [place] 2021-10-27 2021-10-27 Travel 1.2.840.1 1.2.423.258 1411 7104 Univers 00:00:00 00:00:00 10244.1.1 350.1.13.10 ity of 3.104.2.7 4.2.7.3.698 [place] .3.092236 084.8 Med[facility] .[facility] [place] 2021-10-27 2021-10-27 Travel 1.2.840.1 1.2.861.283 6656 7104 Univers 00:00:00 00:00:00 19572.1.1 350.1.13.10 ity of 3.104.2.7 4.2.7.3.698 [place] .3.499399 084.8 Med[facility] .[facility] [place] 2021-10-27 2021-10-27 Travel 1.2.840.1 1.2.428.176 7267 7104 [facility] 00:00:00 00:00:00 76227.1.1 350.1.13.10 ity of 3.104.2.7 4.2.7.3.698 [place] .3.191846 084.8 Med[facility] .[facility] [place] 2021-10-06 2021-10-06 Outpatient R SHIVANI VAUGHN [facility] [id number] Univers 15:15:00 16:31:02 SHIVANI VAUGHN ity of [facility] 2021-10-06 2021-10-06 Travel 1.2.840.1 1.2.832.683 4167 3199 [facility] 00:00:00 00:00:00 64740.1.1 350.1.13.10 ity of 3.104.2.7 4.2.7.3.698 [place] .3.788876 084.8 Med[facility] l .8 [place] 2021-10-06 2021-10-06 Travel 1.2.840.1 1.2.548.442 9080 3199 Univers 00:00:00 00:00:00 32680.1.1 350.1.13.10 ity of 3.104.2.7 4.2.7.3.698 [place] .3.967837 084.8 Med[facility] l .8 [place] 2021-10-06 2021-10-06 Travel 1.2.840.1 1.2.386.797 7243 3199 Univers 00:00:00 00:00:00 80849.1.1 350.1.13.10 ity of 3.104.2.7 4.2.7.3.698 [place] .3.761485 084.8 Med[facility] .[facility] [place] 2021-09-13 2021-09-13 Outpatient R SELF, [facility] [id number] Univers 11:00:00 11:00:00 JAMES bernaladrian o f [facility] 2021-09-02 2021-09-02 [facility] [id number] Univers 13:00:00 13:00:00 HONORIO ity [facility] [place] 2021-09-02 2021-09-02 [facility] [id number] Univers 13:00:00 13:00:00 HONORIO ity [facility] [place] 2021-09-02 2021-09-02 Travel 1.2.840.1 1.2.042.023 2044 361 [facility] 00:00:00 00:00:00 87909.1.1 350.1.13.10 ity of 3.104.2.7 4.[place].7.3.698 [place] .3.550744 084.8 [facility] l .[facility] [place] 2021-09-02 2021-09-02 Travel 1.2.840.1 1.2.891.043 2471 3611 Univers 00:00:00 00:00:00 56790.1.1 350.1.13.10 ity of 3.104.2.7 4.2.7.3.698 [place] .3.760695 084.8 Med[facility] l .8 [place] 2021-09-02 2021-09-02 Travel 1.2.840.1 1.2.163.107 0325 3611 Univers 00:00:00 00:00:00 68738.1.1 350.1.13.10 ity of 3.104.2.7 4.2.7.3.698 [place] .3.033752 084.8 Med[facility] .8 [place] 2021-08-26 2021-08-26 Outpatient R ARNALDO, [facility] [id number] Univers 12:59:32 23:59:00 BOUCHRA ity of [facility] 2021-08-26 2021-08-26 [facility], 1.2.840.8 [id number] Univers 12:59:32 23:59:00 Encounter Bouchra 01438.1.1 it y of 3.104.2.7 [place] .3.302714 Medica l .8 [place] 2021-08-26 2021-08-26 [facility], 1.2.840.0 [id number] Univers 12:59:32 23:59:00 Encounter Bouchra 96746.1.1 it y of 3.104.2.7 [place] .3.755121 Medica l .8 [place] 2021-08-26 2021-08-26 [facility], 1.2.840.4 [id number] Univers 12:59:32 23:59:00 Encounter Bouchra 75894.1.1 it y of 3.104.2.7 [place] .3.916117 Medica l .8 [place] 2021-08-26 2021-08-26 Outpatient R [facility] [id number] Univers 13:00:00 13:47:55 BOUCHRA bernaly of [facility] 2021-08-26 2021-08-26 Office [facility], 1.2.840.4 [id number] [id number] Univers 13:00:00 13:47:55 Visit Bouchra 65520.1.1 ity of 3.104.2.7 [place] .3.955641 Medica l .8 [place] 2021-08-26 2021-08-26 Outpatient R [facility] [id number] [id number] Univers 13:00:00 13:47:55 BOUCHRA bernaly of [facility] 2021-08-26 2021-08-26 Office [place] [facility], 1.2.840.7 [id number] Univers 13:00:00 13:47:55 Visit Bouchra 18746.1.1 ity of 3.104.2.7 [place] .3.194890 Med[facility] l .8 [place] 2021-08-26 2021-08-26 Travel 1.2.840.1 1.2.585.637 8845 7347 Univers 00:00:00 00:00:00 86768.1.1 350.1.13.10 ity of 3.104.2.7 4.[place].7.3.698 [place] .3.458878 084.8 Medica l .8 [place] 2021-08-26 2021-08-26 Travel 1.2.840.1 1.2.021.806 7485 7347 Univers 00:00:00 00:00:00 80607.1.1 350.1.13.10 ity of 3.104.2.7 4.[place].7.3.698 [place] .3.514137 084.8 Med[facility] l .8 [place] 2021-08-26 2021-08-26 Travel 1.2.840.1 1.2.263.396 5000 7347 [facility] 00:00:00 00:00:00 60364.1.1 350.1.13.10 ity of 3.104.2.7 4.[place].7.3.698 [place] .3.313712 084.8 Medica l .8 [place] 2021-08-03 2021-08-03 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 Breaker Machine Operator Tasha [facility] [place] 1.2.8 40.114 [id number] Univers 17:15:00 17:30:00 Visit Shivani Vaughn MEQUON 350.1.13.10 ity [facility] 4[place].2.[place] [phone] Or dical NAL [address] [facility] 2021-08-03 2021-08-03 Bunch Breaker Machine Operator Shivani Vaughn 1.2.840.8 [id number] Univers 17:15:00 17:30:00 Visit Tasha [facility] 34999.1.1 ity of 3.104.2.7 [place] .3.355538 Medica l .8 [place] 2021-08-03 2021-08-03 Bunch Breaker Machine Operator Shivani Vaughn 1.2.840.9 [id number] Univers 17:15:00 17:30:00 Visit Tasha [facility] 57658.1.1 ity of 3.104.2.7 [place] .3.199124 Medica l .8 [place] 2021-08-03 2021-08-03 Outpatient R SHIVANI VAUGHN [facility] [id number] Univers 17:15:00 17:15:00 SHIVANI VAUGHN ity of [facility] 2021-08-02 2021-08-02 [facility] [id number] Univers 10:15:00 11:07:50 JAMES ity o f [facility] 2021-08-02 2021-08-02 Travel 1.2.840.1 1.2.755.406 1159 6890 Univers 00:00:00 00:00:00 88216.1.1 350.1.13.10 ity of 3.104.2.7 4.[place].7.3.698 [place] .3.585959 084.8 Medica l .8 [place] 2021-08-02 2021-08-02 Travel 1.2.840.1 1.2.708.802 5331 6890 Univers 00:00:00 00:00:00 34511.1.1 350.1.13.10 ity of 3.104.2.7 4.2.7.3.698 [place] .3.778278 084.8 Medica l .8 [place] 2021-08-02 2021-08-02 Travel 1.2.840.1 1.2.828.037 2405 6890 Univers 00:00:00 00:00:00 04611.1.1 350.1.13.10 ity of 3.104.2.7 4.2.7.3.698 [place] .3.856923 084.8 Medica l .8 [place] 2021-07-29 2021-07-29 [facility] [id number] Univers 13:26:56 23:59:00 BOUCHRA erickson of [facility] 2021-07-29 2021-07-29 [facility] Arnaldo, 1.2.840.6 [id number] Univers 13:26:56 23:59:00 [facility] Bouchra 39519.1.1 it y of 3.104.2.7 [place] .3.581998 Medica l .8 [place] 2021-07-29 2021-07-29 Hospital [facility], 1.2.840.7 [id number] Univers 13:26:56 23:59:00 Encounter Bouchra 58561.1.1 it y of 3.104.2.7 [place] .3.249364 Medica l .8 [place] 2021-07-29 2021-07-29 [facility], 1.2.840.5 [id number] Univers 13:26:56 23:59:00 Encounter Bouchra 24256.1.1 it y of 3.104.2.7 [place] .3.347936 Medica l .8 [place] 2021-07-29 2021-07-29 Office [facility] 1.2.694.311 0298 [id number] Univers 13:20:00 15:16:49 Visit Bouchra ARELLANO 350.1.13.10 it y of CARE 4.2.7.2.686 Michelle VALDES [id number] Or dical [address] [place] 2021-07-29 2021-07-29 [facility] [id number] Univers 13:20:00 15:16:49 BOUCHRA gabeadrian of [facility] 2021-07-29 2021-07-29 Office [facility], 1.2.840.8 [id number] [id number] Univers 13:20:00 15:16:49 Visit Bouchra 23641.1.1 ity of 3.104.2.7 [place] .3.206569 Medica l .8 [place] 2021-07-29 2021-07-29 Office [facility], 1.2.840.8 [id number] [id number] Univers 13:20:00 15:16:49 Visit Bouchra 73837.1.1 ity of 3.104.2.7 [place] .3.466189 Medica l .8 [place] 2021-07-29 2021-07-29 Letter [facility], 1.2.840.6 [id number] [id number] Univers 00:00:00 00:00:00 (Out) Bouchra 76749.1.1 ity of 3.104.2.7 [place] .3.681595 Medica l .8 [place] 2021-07-29 2021-07-29 Travel 1.2.840.1 1.2.823.132 7309 9351 Univers 00:00:00 00:00:00 06724.1.1 350.1.13.10 ity of 3.104.2.7 4.2.7.3.698 [place] .3.507288 084.8 Medica [facility] .8 [place] 2021-07-29 2021-07-29 Letter Arnaldo, 1.2.840.6 [id number] [id number] Univers 00:00:00 00:00:00 (Out) Bouchra 20172.1.1 ity of 3.104.2.7 [place] .3.183615 Medica l .8 [place] 2021-07-29 2021-07-29 Travel 1.2.840.1 1.2.100.780 4368 9351 Univers 00:00:00 00:00:00 10162.1.1 350.1.13.10 ity of 3.104.2.7 4.2.7.3.698 [place] .3.472171 084.8 Medica l .8 [place] 2021-07-29 2021-07-29 Letter Arnaldo, 1.2.840.4 [id number] Univers 00:00:00 00:00:00 (Out) Bouchra 65113.1.1 ity of 3.104.2.7 [place] .3.277998 Medica [facility] .8 [place] 2021-07-29 2021-07-29 Travel 1.2.840.1 1.2.889.306 0812 9351 Univers 00:00:00 00:00:00 96160.1.1 350.1.13.10 ity of 3.104.2.7 4.2.7.3.698 [place] .3.930596 084.8 Medica l .8 [place] 2021-07-22 2021-07-22 [facility] 1.2.840.114 9 [id number] Univers 14:00:00 23:59:00 Encounter , [facility] 350.1.13.10 ity of [place] 4.2.7.2.686 [facility] [id number] [facility] [address] [place] 2021-07-22 2021-07-22 [facility] 1.2.840.0 [id number] Univers 14:00:00 23:59:00 Encounter , Ryan 41774.1.1 it y of 3.104.2.7 [place] .3.012709 Medica l .8 [place] 2021-07-22 2021-07-22 [facility] 1.2.840.1 [id number] Univers 14:00:00 23:59:00 Encounter , Ryan 73958.1.1 it y of 3.104.2.7 [place] .3.113527 Medica l .8 [place] 2021-07-22 2021-07-22 [facility] 1.2.840.5 [id number] Univers 14:00:00 23:59:00 Encounter , Ryan 40700.1.1 it y of 3.104.2.7 [place] .3.112245 Medica l .8 [place] 2021-07-22 2021-07-22 [facility] 1.2.840.114 9 [id number] Univers 10:46:11 13:59:00 Encounter , Ryan SPECIALTY 350.1.13.10 ity of CARE 4.2.7.2.686 [facility] AT [id number] Or janesbill BOBBY 809 [facility] 2021-07-22 2021-07-22 [facility] 1.2.840.1 [id number] Univers 10:46:11 13:59:00 Encounter , Ryan 13455.1.1 it y of 3.104.2.7 [place] .3.962858 Medica l .8 [place] 2021-07-22 2021-07-22 [facility] 1.2.840.4 [id number] Univers 10:46:11 13:59:00 Encounter , Ryan 30612.1.1 it y of 3.104.2.7 [place] .3.202546 Medica l .8 [place] 2021-07-22 2021-07-22 [facility] Alibrandi 1.2.840.1 [id number] Univers 10:46:11 13:59:00 Encounter , Ryan 44095.1.1 it y of 3.104.2.7 [place] .3.158303 Medica l .[address] [place] [address] 2021-07-22 2021-07-22 Outpatient R GALARZA, [facility] [id number] Univers 13:00:00 13:45:02 HONORIO ity [facility] [place] 2021-07-22 2021-07-22 Outpatient R GALARZA, [facility] [id number] Univers 13:00:00 13:45:02 HONORIO ity [facility] [place] 2021-07-22 2021-07-22 Outpatient R GALARZA, [facility] [id number] Univers 13:00:00 13:00:00 NEWBORN ity [facility] [place] 2021-07-22 2021-07-22 Office Alijanipour 1.2.840.2 [id number] Univers 10:15:00 11:55:28 Visit , Ryan 79556.1.1 ity of 3.104.2.7 [place] .3.220221 Medica l [address] [place] [address] 2021-07-22 2021-07-22 Outpatient R ALIJANIPOUR [facility] [id number] Univers 10:15:00 11:55:28 , RYAN ity [facility] [place] 2021-07-22 2021-07-22 Office Alijanipour 1.2.840.8 [id number] Univers 10:15:00 11:55:28 Visit , Ryan 62283.1.1 ity of 3.104.2.7 [place] .3.267343 Medica l [address] [place] [address] 2021-07-22 2021-07-22 Office Alijanipour 1.2.840.8 [id number] Univers 10:15:00 11:55:28 Visit , Ryan 57453.1.1 ity of 3.104.2.7 [place] .3.935542 Medica l .8 [place] 2021-07-22 2021-07-22 Outpatient R ALIALEXISIPANTONIETA [facility] [id number] Univers 10:46:11 10:46:11 , RYAN ity of [facility] 2021-07-22 2021-07-22 Outpatient R ALIBRANDI [facility] [id number] Univers 10:15:00 10:15:00 , RYAN ity of [facility] 2021-07-22 2021-07-22 Outpatient R ALIJANIPANTONIETA [facility] [id number] Univers 10:15:00 10:15:00 , RYAN ity of [facility] 2021-07-22 2021-07-22 Abstract Alijanipour 1.2.840.8 [id number] Univers 00:00:00 00:00:00 , Ryan 62777.1.1 ity of 3.104.2.7 [place] .3.039626 Medica l .[facility] [place] 2021-07-22 2021-07-22 Travel 1.2.840.1 1.2.002.386 4429 [id number] Univers 00:00:00 00:00:00 02757.1.1 350.1.13.10 ity of 3.104.2.7 4.2.7.3.698 [place] .3.667383 084.8 Medica l .8 [place] 2021-07-22 2021-07-22 Letter Alijanipour 1.2.840.0 [id number] Univers 00:00:00 00:00:00 (Out) , Ryan 03279.1.1 ity of 3.104.2.7 [place] .3.078576 Medica l .8 [place] 2021-07-22 2021-07-22 Letter Alijanipour 1.2.840.6 [id number] Univers 00:00:00 00:00:00 (Out) , Ryan 03995.1.1 ity of 3.104.2.7 [place] .3.531492 Med[facility] l .8 [place] 2021-07-22 2021-07-22 Travel 1.2.840.1 1.2.110.151 3651 8425 Univers 00:00:00 00:00:00 03282.1.1 350.1.13.10 ity of 3.104.2.7 4.2.7.3.698 [place] .3.147360 084.8 Medica l .8 [facility] 2021-07-22 2021-07-22 Abstract Alijanipour 1.2.840.9 [id number] Univers 00:00:00 00:00:00 , Ryan 96353.1.1 ity of 3.104.2.7 [place] .3.961153 Medica l .8 [facility] 2021-07-22 2021-07-22 Letter Alijanipour 1.2.840.4 [id number] Univers 00:00:00 00:00:00 (Out) , Ryan 29410.1.1 ity of 3.104.2.7 [place] .3.591449 Medica l .8 [place] 2021-07-22 2021-07-22 Travel 1.2.840.1 1.2.597.544 3778 8425 Univers 00:00:00 00:00:00 97483.1.1 350.1.13.10 ity of 3.104.2.7 4.2.7.3.698 [place] .3.743177 084.8 Medica l .8 [place] 2021-07-22 2021-07-22 Abstract Alijanipour 1.2.840.9 [id number] Univers 00:00:00 00:00:00 , Ryan 52466.1.1 ity of 3.104.2.7 [place] .3.904473 Medica l .8 [facility] 2021-07-22 2021-07-22 Letter Alijanipour 1.2.840.1 [id number] Univers 00:00:00 00:00:00 (Out) , Ryan 32251.1.1 ity of 3.104.2.7 [place] .3.727666 Medica l .8 [facility] 2021-07-22 2021-07-22 Travel 1.2.840.1 1.2.601.625 1867 8425 Univers 00:00:00 00:00:00 00021.1.1 350.1.13.10 ity of 3.104.2.7 4.2.7.3.698 [place] .3.854201 084.8 Medica l .8 [place] 2021-07-22 2021-07-22 Abstract Yamilexkadiantonieta 1.2.840.4 [id number] Univers 00:00:00 00:00:00 , Ryan 42237.1.1 ity of 3.104.2.7 [place] .3.565283 Medica l .8 [place] 2021-07-21 2021-07-[address] [id number] Univers 14:30:00 15:30:35 RODERICK [facility] 2021-07-21 2021-07-[address] [id number] Univers 14:30:00 15:30:35 RODERICK [facility] 2021-07-21 2021-07-[address] [facility] [id number] Univers 14:30:00 14:30:00 RODERICK [facility] 2021-07-15 2021-07-15 Orders Doctor 1.2.840.5 [id number] Univers 00:00:00 00:00:00 Only Unassigned, 53791.1.1 ity of [place] 3.104.2.7 [place] .3.492810 Medica l .8 [place] 2021-07-15 2021-07-15 Orders Doctor 1.2.840.9 [id number] Univers 00:00:00 00:00:00 Only Unassigned, 75234.1.1 ity of [place] 3.104.2.7 [place] .3.433907 Medica l .8 [place] 2021-07-15 2021-07-15 Orders Doctor 1.2.840.1 [id number] [facility] 00:00:00 00:00:00 Only Unassigned, 57036.1.1 ity of [place] 3.104.2.7 [place] .3.920273 Medica l .8 [place] 2021-07-15 2021-07-15 Orders Doctor 1.2.840.0 [id number] [facility] 00:00:00 00:00:00 Only Unassigned, 44229.1.1 ity of [place] 3.104.2.7 [place] .3.738126 Medica l .8 [facility] 2021-07-09 2021-07-09 Emergency [facility] [id number] [facility] 12:46:00 12:46:00 14 2021-07-08 2021-07-08 Outpatient Escobar GALARZA [facility] [id number] [facility] 13:00:00 13:00:00 [facility] 2021-07-08 2021-07-08 Outpatient Escobar GALARZA [facility] [id number] [facility] 13:00:00 13:00:00 [facility] 2021-06-30 2021-06-30 Telephone Nazeer, 1.2.840.8 [id number] [facility] 00:00:00 00:00:00 Jerry 04216.1.1 ity of 3.104.2.7 [place] .3.909102 Medica l .8 [facility] 2021-06-30 2021-06-30 Telephone Nazeer, 1.2.840.7 [id number] [facility] 00:00:00 00:00:00 Jerry 49343.1.1 ity of 3.104.2.7 [place] .3.945014 Medica l .8 [facility] 2021-06-30 2021-06-30 Telephone Nazeer, 1.2.840.8 [id number] [facility] 00:00:00 00:00:00 Jerry 09417.1.1 ity of 3.104.2.7 [place] .3.565763 Medica l .8 [facility] 2021-06-30 2021-06-30 Telephone Nazeer, 1.2.840.0 [id number] [facility] 00:00:00 00:00:00 Jerry 29662.1.1 ity of 3.104.2.7 [place] .3.233383 Medica l .8 [facility] 2021-06-24 2021-06-24 Imm/Inj Nurse, Pcp Immunization RUST 1. 2.840.114 [id number] [facility] 16:30:00 16:40:00 Visit Gideon Montez PRIMARY 350.1.13. 10 ity of CARE 4.2.7.2.686 Michelle VALDES [id number] Or dical 421 [place] 2021-06-24 2021-06-24 Imm/Inj Gideon Montez 1.2.840.0 [id number] [facility] 16:30:00 16:40:00 Visit Nurse, Pcp Immunization 43615.1.1 ity of 3.104.2.7 [place] .3.487206 Medica l .8 [facility] 2021-06-24 2021-06-24 Imm/Inj Gideon Montez 1.2.840.1 [id number] [facility] 16:30:00 16:40:00 Visit Nurse, Pcp Immunization 91825.1.1 ity of 3.104.2.7 [place] .3.267434 Medica l .8 [facility] 2021-06-24 2021-06-24 Imm/Inj Gideon Montez 1.2.840.5 [id number] [facility] 16:30:00 16:40:00 Visit Nurse, Pcp Immunization 22888.1.1 ity of 3.104.2.7 [place] .3.780228 Medica l .8 [facility] 2021-06-24 2021-06-24 Imm/Inj Gideon Montez 1.2.840.2 [id number] [facility] 16:30:00 16:40:00 Visit Nurse, Pcp Immunization 74836.1.1 ity of 3.104.2.7 [place] .3.027944 Medica l .8 [place] 2021-06-24 2021-06-24 Outpatient R CARLOS MANUEL [facility] [id number] Univers 16:30:00 16:30:00 GIDEON ity of [facility] 2021-06-24 2021-06-24 Bunch Breaker Machine Operator Pcp-Lab RUST 1.2.840.114 [id number] [facility] 16:15:00 16:30:00 Visit Bethel Isaacs PRIMARY 350.1.13.10 ity of CARE 4.2.7.2.686 Michelle VALDES [phone] Or dical 366 [place] 2021-06-24 2021-06-24 Bunch Breaker Machine Operator Bethel Isaacs 1.2.840.0 [id number] [facility] 16:15:00 16:30:00 Visit Pcp-Lab 74678.1.1 ity of 3.104.2.7 [place] .3.785255 Medica l .8 [place] 2021-06-24 2021-06-24 Bunch Breaker Machine Operator Bethel Isaacs 1.2.840.4 [id number] Univers 16:15:00 16:30:00 Visit Pcp-Lab 73250.1.1 ity of 3.104.2.7 [place] .3.722997 Medica l .8 [place] 2021-06-24 2021-06-24 Bunch Breaker Machine Operator Bethel Isaacs 1.2.840.8 [id number] [facility] 16:15:00 16:30:00 Visit Pcp-Lab 05879.1.1 ity of 3.104.2.7 [place] .3.214179 Medica l .8 [place] 2021-06-24 2021-06-24 Bunch Breaker Machine Operator Bethel Isaacs 1.2.840.6 [id number] Univers 16:15:00 16:30:00 Visit Pcp-Lab 44504.1.1 ity of 3.104.2.7 [place] .3.227519 Medica l .8 [place] 2021-06-24 2021-06-24 Outpatient R KOURTNEY [facility] [id number] Univers 16:15:00 16:15:00 BETHEL erickson of [facility] 2021-06-24 2021-06-24 Outpatient R KOURTNEY [facility] [id number] Univers 14:40:00 16:08:00 BETHEL erickson of [place] [facility] 2021-06-24 2021-06-24 Office Bethel Isaacs 1.2.840.9 [id number] Univers 14:40:00 16:08:00 Visit Health, Tg Hormone 93833.1.1 ity of 3.104.2.7 [place] .3.548996 [facility] [place] 2021-06-24 2021-06-24 [facility] [id number] Univers 14:40:00 16:08:00 BETHEL erickson of [facility] 2021-06-24 2021-06-24 Office Bethel Isaacs 1.2.840.1 [id number] Univers 14:40:00 16:08:00 Visit Health, Tg Hormone 35983.1.1 ity of 3.104.2.7 [place] .3.829414 [facility] [place] 2021-06-24 2021-06-24 Office Bethel Isaacs 1.2.840.9 [id number] Univers 14:40:00 16:08:00 Visit Health, Tg Hormone 56830.1.1 ity of 3.104.2.7 [place] .3.478775 [facility] [place] 2021-06-24 2021-06-24 Office Bethel Isaacs 1.2.840.6 [id number] Univers 14:40:00 16:08:00 Visit Health, Tg Hormone 66726.1.1 ity of 3.104.2.7 [place] .3.147042 [facility] [place] 2021-06-24 2021-06-24 [facility] [id number] Univers 14:40:00 14:40:00 BETHEL ity of [facility] 2021-06-24 2021-06-24 Travel 1.2.840.1 1.2.739.264 3693 0448 Univers 00:00:00 00:00:00 87635.1.1 350.1.13.10 ity of 3.104.2.7 [place].3.698 [place] .[place].314[place] 084.8 [facility] .[facility] [place] 2021-06-24 2021-06-24 Travel 1.2.840.1 1.2.014.124 1590 0448 Univers 00:00:00 00:00:00 67374.1.1 350.1.13.10 ity of 3.104.2.7 [place].3.698 [place] .3.566798 084.8 [facility] .[facility] [place] 2021-06-24 2021-06-24 Travel 1.2.840.1 1.2.570.126 0946 0448 Univers 00:00:00 00:00:00 05126.1.1 350.1.13.10 ity of 3.104.2.7 [place]7.3.698 [place] .3.706897 084.8 [facility] .[facility] [place] 2021-06-24 2021-06-24 Travel 1.2.840.1 1.2.782.588 7885 0448 Univers 00:00:00 00:00:00 47671.1.1 350.1.13.10 ity of 3.104.2.7 [place].3.698 [place] .3.603082 084.8 [facility] .[facility] [place] 2021-06-17 2021-06-17 Bunch Breaker Machine Operator James Jacobs 1.2.840.7 [id number] [facility] 16:00:00 16:15:00 Visit Pcp-Lab 01819.1.1 ity of 3.104.2.7 [place] .3.260461 [facility] [place] 2021-06-17 2021-06-17 Bunch Breaker Machine Operator James Jacobs 1.2.840.4 [id number] [facility] 16:00:00 16:15:00 Visit Pcp-Lab 62847.1.1 ity of 3.104.2.7 [place] .3.321531 [facility] [place] 2021-06-17 2021-06-17 Bunch Breaker Machine Operator James Jacobs 1.2.840.2 679476 [id number] [id number] Univers 16:00:00 16:15:00 Visit Pcp-Lab 72028.1.1 ity of 3.104.2.7 [place] .3.358108 [facility] [place] 2021-06-17 2021-06-17 Bunch Breaker Machine Operator James Jacobs 1.2.840.7 [id number] [id number] Univers 16:00:00 16:15:00 Visit Pcp-Lab 45551.1.1 ity of 3.104.2.7 [place] .3.314641 [facility] [place] 2021-06-17 2021-06-17 Bunch Breaker Machine Operator Reynaldo James 1.2.840.8 [id number] 5686 [id number] Univers 16:00:00 16:15:00 Visit Pcp-Lab 60049.1.1 ity of 3.104.2.7 [place] .3.950235 [facility] [place] 2021-06-17 2021-06-17 Outpatient R [facility] [id number] Univers 14:00:00 14:00:00 [facility] 2021-06-17 2021-06-17 Outpatient R [facility] [id number] Univers 14:00:00 14:00:00 [facility] 2021-06-17 2021-06-17 Travel 1.2.840.1 1.2.049.858 7925 3149 Univers 00:00:00 00:00:00 76055.1.1 350.1.13.10 ity of 3.104.2.7 [place]7.3.698 [place] .3.726548 084.8 [facility] .[facility] [place] 2021-06-17 2021-06-17 Travel 1.2.840.1 1.2.572.056 7238 3149 Univers 00:00:00 00:00:00 17571.1.1 350.1.13.10 ity of 3.104.2.7 [place]7.3.698 [place] .3.579280 084.8 [facility] .[facility] [place] 2021-06-17 2021-06-17 Travel 1.2.840.1 1.2.105.488 9981 3149 Univers 00:00:00 00:00:00 52605.1.1 350.1.13.10 ity of 3.104.2.7 4.[place]7.3.698 [place] .3.016634 084.8 [facility] [place] 2021-06-17 2021-06-17 Travel 1.2.840.1 1.2.981.412 7913 3149 Univers 00:00:00 00:00:00 20713.1.1 350.1.13.10 ity of 3.104.2.7 4.[place].7.3.698 [place] .3.890747 084.8 [facility] 2021-06-17 2021-06-17 Travel 1.2.840.1 1.2.116.327 6349 3149 Univers 00:00:00 00:00:00 20270.1.1 350.1.13.10 ity of 3.104.2.7 4.[place].7.3.698 [place] .3.206548 084.8 [facility] [place] 2021-06-14 2021-06-14 Outpatient R REYNALDO, [facility] [id number] Univers 11:00:00 12:13:42 JAMES braxton f [facility] 2021-06-14 2021-06-14 Travel 1.2.840.1 1.2.856.951 1279 7514 Univers 00:00:00 00:00:00 73331.1.1 350.1.13.10 ity of 3.104.2.7 4.[place].7.3.698 [place] .3.541845 084.8 [facility] 2021-06-14 2021-06-14 Travel 1.2.840.1 1.2.156.903 8296 7514 Univers 00:00:00 00:00:00 70429.1.1 350.1.13.10 ity of 3.104.2.7 4.[place].7.3.698 [place] .3.813273 084.8 [facility] .[facility] [place] 2021-06-14 2021-06-14 Travel 1.2.840.1 1.2.226.872 2497 7514 Univers 00:00:00 00:00:00 74689.1.1 350.1.13.10 ity of 3.104.2.7 4.[place].7.3.698 [place] .3.593410 084.8 [facility] .[facility] [place] 2021-06-14 2021-06-14 Travel 1.2.840.1 1.2.088.850 7958 7514 [facility] 00:00:00 00:00:00 23815.1.1 350.1.13.10 ity of 3.104.2.7 4.[place].7.3.698 [place] .3.976143 084.8 [facility] .[facility] [place] 2021-06-10 2021-06-10 Patient Burton, 1.2.840.6 [id number] Univers 00:00:00 00:00:00 Outreach Britt J 35701.1.1 ity of 3.104.2.7 [place] .3.694253 [facility] [place] 2021-06-10 2021-06-10 Patient Burton, 1.2.840.7 [id number] Univers 00:00:00 00:00:00 Outreach Britt J 85419.1.1 ity of 3.104.2.7 [place] .3.043595 [facility] [place] 2021-06-10 2021-06-10 Patient Burton, 1.2.840.0 [id number] Univers 00:00:00 00:00:00 Outreach Britt J 63221.1.1 ity of 3.104.2.7 [place] .3.233726 [facility] [place] 2021-06-10 2021-06-10 Patient Burton, 1.2.840.1 [id number] Univers 00:00:00 00:00:00 Outreach Britt J 99393.1.1 ity of 3.104.2.7 [place] .3.150030 [facility] 2021-06-03 2021-06-03 Outpatient R GALARZA, [facility] [id number] Univers 14:00:00 14:22:42 HONORIO ity of [facility] 2021-06-03 2021-06-03 Travel 1.2.840.1 1.2.123.273 9797 4897 [facility] 00:00:00 00:00:00 18779.1.1 350.1.13.10 ity of 3.104.2.7 [place].7.3.698 [place] .3.890325 084.8 [facility] .[facility] 2021-06-03 2021-06-03 Travel 1.2.840.1 1.2.829.431 0390 4897 [facility] 00:00:00 00:00:00 97742.1.1 350.1.13.10 ity of 3.104.2.7 4.[place].7.3.698 [place] .3.720695 084.8 [facility] .[facility] 2021-06-03 2021-06-03 Travel 1.2.840.1 1.2.052.274 1971 4897 Univers 00:00:00 00:00:00 80674.1.1 350.1.13.10 ity of 3.104.2.7 4.[place].7.3.698 [place] .3.943031 084.8 [facility] l .[facility] [place] 2021-06-03 2021-06-03 Travel 1.2.840.1 1.2.531.851 4339 4897 [facility] 00:00:00 00:00:00 78552.1.1 350.1.13.10 ity of 3.104.2.7 4.[place].7.3.698 [place] .3.982818 084.8 [facility] l .[facility] [place] 2021-05-26 2021-05-26 [facility], 1.2.840.0 [id number] [facility] 09:40:00 23:59:00 Tej De La Cruz 15679.1.1 ity of 3.104.2.7 [place] .3.946531 [facility] 2021-05-26 2021-05-26 [facility], 1.2.840.3 [id number] Univers 09:40:00 23:59:00 Encounter Burke De La Cruz 05049.1.1 ity of 3.104.2.7 [place] .3.079930 [facility] 2021-05-26 2021-05-26 [facility], 1.2.840.2 [id number] Univers 09:40:00 23:59:00 Encounter Burke De La Cruz 26611.1.1 ity of 3.104.2.7 [place] .3.796190 [facility] [place] 2021-05-26 2021-05-26 Outpatient R STONE, [facility] [id number] Univers 00:00:00 00:00:00 BURKE erickson of [facility] 2021-05-25 2021-05-25 Emergency [facility] [id number] [facility] 23:19:00 23:19:00 94 2021-05-24 2021-05-24 Outpatient R SELF, [facility] [id number] Univers 11:00:00 11:31:18 JAMES erickson o f [facility] 2021-05-24 2021-05-24 Travel 1.2.840.1 1.2.006.844 9667 1167 Univers 00:00:00 00:00:00 99883.1.1 350.1.13.10 ity of 3.104.2.7 [place].7.3.698 [place] .3.841324 084.8 [facility] l .[facility] [place] 2021-05-24 2021-05-24 Travel 1.2.840.1 1.2.259.048 2362 1167 Univers 00:00:00 00:00:00 69693.1.1 350.1.13.10 ity of 3.104.2.7 4.[place].7.3.698 [place] .3.526084 084.8 [facility] l .[facility] [place] 2021-05-24 2021-05-24 Travel 1.2.840.1 1.2.985.302 8402 1167 Univers 00:00:00 00:00:00 21159.1.1 350.1.13.10 ity of 3.104.2.7 4.[place].7.3.698 [place] .3.183679 084.8 [facility] .[facility] [place] 2021-05-10 2021-05-10 Outpatient R SELF, [facility] [id number] Univers 08:45:00 08:45:00 JAMES ity o f [facility] 2021-04-29 2021-04-29 Outpatient R GEOVANNI, [facility] [id number] Univers 13:00:00 13:33:16 HONORIO ity [facility] [place] 2021-04-29 2021-04-29 [facility] [id number] Univers 13:00:00 13:00:00 HONORIO ity [facility] [place] 2021-04-29 2021-04-29 Travel 1.2.840.1 1.2.362.322 8768 6843 Univers 00:00:00 00:00:00 21219.1.1 350.1.13.10 ity of 3.104.2.7 4.2.7.3.698 [place] .3.722510 084.8 [facility] .[facility] [place] 2021-04-29 2021-04-29 Travel 1.2.840.1 1.2.846.087 1598 6843 Univers 00:00:00 00:00:00 49480.1.1 350.1.13.10 ity of 3.104.2.7 4.[place].7.3.698 [place] .3.249267 084.8 [facility] l .[facility] [place] 2021-03-18 2021-03-18 Outpatient R GALARZA, [facility] [id number] Univers 15:00:00 15:00:00 HONORIO ity [facility] [place] 2021-03-18 2021-03-18 Travel 1.2.840.1 1.2.698.583 6723 6290 Univers 00:00:00 00:00:00 13453.1.1 350.1.13.10 ity of 3.104.2.7 4.[place].7.3.698 [place] .3.353468 084.8 [facility] l .[facility] [place] 2021-03-15 2021-03-15 [facility] [id number] Univers 10:15:00 10:15:00 JAMES erickson o [facility] 2021-02-25 2021-02-25 [facility] [id number] Univers 09:00:00 09:00:00 HONORIO itadrian [facility] [place] 2021-02-25 2021-02-25 Travel 1.2.840.1 1.2.141.010 9853 [id number] Univers 00:00:00 00:00:00 57513.1.1 350.1.13.10 ity of 3.104.2.7 4.[place].7.3.698 [place] .3.544669 084.8 [facility] l .[facility] [place] 2021-02-15 2021-02-15 [facility] [id number] Univers 11:00:00 11:00:00 JAMES braxton 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 1.2.840.9 [id number] [facility] 13:53:29 14:08:29 Visit Pcp-Lab 48139.1.1 ity of 3.104.2.7 [place] .3.924552 [facility] [place] 2021-01-28 2021-01-28 Outpatient R GEOVANNI, [facility] [id number] Univers 13:00:00 13:00:00 HONORIO ity [facility] [place] 2021-01-28 2021-01-28 Travel 1.2.840.1 1.2.581.239 4282 1440 Univers 00:00:00 00:00:00 26087.1.1 350.1.13.10 ity of 3.104.2.7 [place].7.3.698 [place] .3.313234 084.8 [facility] l .[facility] [place] 2021-01-25 2021-01-25 Outpatient R SELF, [facility] [id number] Univers 09:30:00 09:30:00 JAMES bernaladrian o [facility] 2021-01-25 2021-01-25 Travel 1.2.840.1 1.2.875.297 9219 [id number] Univers 00:00:00 00:00:00 15002.1.1 350.1.13.10 ity of 3.104.2.7 4.[place].7.3.698 [place] .3.925015 084.8 [facility] l .[facility] [place] 2021-01-13 2021-01-13 Outpatient R SELF, [facility] [id number] Univers 16:00:00 16:00:00 JAMES bernaladrian o 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 Tim Holguin 1.2.840.0 [id number] Univers 16:38:39 16:54:09 Visit Pcp-Lab 80386.1.1 ity of 3.104.2.7 [place] .3.830994 [facility] [place] 2020-12-31 2020-12-31 Outpatient Escobar GALARZA [facility] [id number] Univers 16:00:00 16:00:00 HONORIO ity [facility] [place] 2020-12-31 2020-12-31 Travel 1.2.840.1 1.2.411.399 4307 7339 Univers 00:00:00 00:00:00 58232.1.1 350.1.13.10 ity of 3.104.2.7 4.[place].7.3.698 [place] .3.089624 084.8 [facility] l .[facility] [place] 2020-12-28 2020-12-28 Orders Doctor 1.2.840.6 [id number] Univers 00:00:00 00:00:00 Only Unassigned, 81958.1.1 ity of [place] 3.104.2.7 [place] .3.892601 [facility]ica l .[facility] [place] 2020-12-24 2020-12-24 Outpatient R EZIO [facility] [id number] Univers 11:00:00 11:00:00 TIM campbell [facility] [place] 2020-12-24 2020-12-24 Travel 1.2.840.1 1.2.514.412 3948 7276 Univers 00:00:00 00:00:00 54665.1.1 350.1.13.10 ity of 3.104.2.7 4.[place].7.3.698 [place] .3.081088 084.8 [facility] l .[facility] [place] 2020-12-17 2020-12-17 Outpatient Escobar GALARZA [facility] [id number] Univers 11:00:00 11:00:00 HONORIO erickson [facility] [place] 2020-11-26 2020-11-26 Outpatient R GEOVANNI [facility] [id number] Univers 16:00:00 16:00:00 HONORIO erickson [facility] [place] 2020-11-26 2020-11-26 Travel 1.2.840.1 1.2.753.096 2870 0854 Univers 00:00:00 00:00:00 41614.1.1 350.1.13.10 ity of 3.104.2.7 4.2.7.3.698 [place] .3.739488 084.8 [facility] l .[facility] [place] 2020-11-26 2020-11-26 Travel 1.2.840.1 1.2.592.373 1387 0854 Univers 00:00:00 00:00:00 55457.1.1 350.1.13.10 ity of 3.104.2.7 4.2.7.3.698 [place] .3.011444 084.8 [facility] l .[facility] [place] 2020-11-21 2020-11-21 Imm/Inj Gideon Montez 1.2.840.9 654 [id number] Univers 10:04:35 10:09:35 Visit Immunization, [facility] 69116.1.1 ity of 3.104.2.7 [place] .3.339606 [facility] .[facility] [place] 2020-11-21 2020-11-21 Outpatient R CARLOS MANUEL [facility] [id number] Univers 10:05:00 10:05:00 GIDEON erickson [facility] [place] 2020-11-17 2020-11-17 Outpatient R CHELSY ROMO [facility] [id number] Univers 15:45:00 15:45:00 ity [facility] [place] 2020-11-17 2020-11-17 Travel 1.2.840.1 1.2.964.599 6798 3821 Univers 00:00:00 00:00:00 81178.1.1 350.1.13.10 ity of 3.104.2.7 4.[place].7.3.698 [place] .3.153154 084.8 [facility] l .[facility] [place] 2020-11-16 2020-11-16 Orders Doctor 1.2.840.1 [id number] Univers 00:00:00 00:00:00 Only Unassigned, 51014.1.1 ity of [place] 3.104.2.7 [place] .3.223181 [facility] [place] 2020-11-12 2020-11-12 Outpatient R GEOVANNI, [facility] [id number] Univers 08:00:00 08:00:00 HONORIO ity of [facility] 2020-11-12 2020-11-12 Travel 1.2.840.1 1.2.929.699 8222 7122 Univers 00:00:00 00:00:00 86009.1.1 350.1.13.10 ity of 3.104.2.7 4.[place].7.3.698 [place] .3.888926 084.8 [facility] l .[facility] [place] 2020-10-29 2020-10-29 Outpatient [facility] [id number] Univers 09:30:00 09:30:00 TIM it y of [facility] 2020-10-24 2020-10-24 Imm/Inj Gio Martinez 1.2.840.1 [id number] Univers 09:54:36 10:09:56 Visit Immunization, [facility] 46710.1.1 ity of 3.104.2.7 [place] .3.954428 [facility] l .[facility] [place] 2020-10-24 2020-10-24 Outpatient [facility] [id number] Univers 10:00:00 10:00:00 GIO ity of [facility] 2020-10-24 2020-10-24 Travel 1.2.840.1 1.2.776.986 2774 3748 Univers 00:00:00 00:00:00 98289.1.1 350.1.13.10 ity of 3.104.2.7 4.[place].7.3.698 [place] .3.434659 084.8 Med[facility] l .[facility] [place] 2020-09-25 2020-09-26 Emergency E PARRY, [facility] [id number] [place] 23:49:00 10:04:00 [facility] Medica [facility] 2020-09-17 2020-09-17 Telephone Simon 1.2.840.7 [id number] Univers 00:00:00 00:00:00 Nilton Mustapha 15445.1.1 i ty of 3.104.2.7 [place] .3.847913 Medica [address] 2020-08-18 2020-08-18 Outpatient R CLARISSA CHELSY [facility] [id number] Univers 15:00:00 15:00:00 ity of [facility] 2020-07-08 2020-07-08 Office Simon 1.2.840.0 [id number] Univers 12:55:33 15:36:41 Visit Nilton A 05637.1.1 i ty of 3.104.2.7 [place] .3.746857 Medica [address] 2020-07-08 2020-07-08 Outpatient R NILTON MONTES [facility] [id number] Univers 13:30:00 13:30:00 [facility] 2020-07-08 Orders Doctor 1.2.840.4 [id number] Univers 00:00:00 00:00:00 Only Unassigned, 45619.1.1 ity of [place] 3.104.2.7 [place] .3.831639 Medica [address] 2020-07-08 2020-07-08 Letter Simon 1.2.840.9 [id number] Univers 00:00:00 00:00:00 (Out) Nilton A 82707.1.1 i ty of 3.104.2.7 [place] .3.599704 Medica [address] 2020-05-21 2020-05-21 Outpatient R NICOLE [facility] [id number] Univers 10:15:00 10:15:00 DENA ity [facility] [place] 2020-05-21 2020-05-21 Orders Doctor 1.2.840.3 [id number] Univers 00:00:00 00:00:00 Only Unassigned, 93195.1.1 ity of [place] 3.104.2.7 [place] .3.687947 [facility] [place] 2020-04-24 2020-04-24 Outpatient R FISHASH [facility] [id number] Univers 16:00:00 16:00:00 ity of [facility] 2020-04-22 2020-04-22 Telephone FishDequann 1.2.840.6 [id number] Univers 00:00:00 00:00:00 02500.1.1 ity of 3.104.2.7 [place] .3.464023 [facility] .[facility] [place] 2020-04-21 2020-04-21 Case Fish, Ash 1.2.840.1 [id number] Univers 00:00:00 00:00:00 Management 92689.1.1 i ty of 3.104.2.7 [place] .3.011837 [facility] [place] 2020-04-20 2020-04-20 Office FishAsh 1.2.840.0 [id number] Univers 15:09:50 16:30:58 Visit 21782.1.1 ity of 3.104.2.7 [place] .3.939975 [facility] [place] 2020-04-20 2020-04-20 Outpatient R FISHASH [facility] [id number] Univers 15:30:00 15:30:00 ity of [facility] 2020-04-20 2020-04-20 Travel 1.2.840.1 1.2.783.912 4120 7424 Univers 00:00:00 00:00:00 70976.1.1 350.1.13.10 ity of 3.104.2.7 4.2.7.3.698 [place] .3.087558 084.8 [facility]ica l .[facility] [place] 2020-04-16 2020-04-16 Emergency Checo, K 1.2.840.7 [id number] Univers 11:02:00 13:56:00 Bree 44237.1.1 ity of 3.104.2.7 [place] .3.945340 [facility] [place] 2020-04-16 2020-04-16 Travel 1.2.840.1 1.2.446.377 7432 3692 Univers 00:00:00 00:00:00 25033.1.1 350.1.13.10 ity of 3.104.2.7 4.2.7.3.698 [place] .3.205620 084.8 Medica l .[facility] [place] 2020-04-07 2020-04-07 Outpatient R CHELSY ROMO [facility] [id number] Univers 13:30:00 13:30:00 ity of [facility] 2020-04-07 2020-04-07 Travel 1.2.840.1 1.2.545.143 8823 9561 Univers 00:00:00 00:00:00 02094.1.1 350.1.13.10 ity of 3.104.2.7 4.2.7.3.698 [place] .3.865931 084.8 [facility]ica l .[facility] [place] 2020-01-30 2020-01-30 Outpatient R DEFILIPPIS, [facility] [id number] Univers 15:45:00 15:45:00 TRUNG itadrian of [facility] 2020-01-30 2020-01-30 Travel 1.2.840.1 1.2.469.899 [id number] Univers 00:00:00 00:00:00 44481.1.1 350.1.13.10 ity of 3.104.2.[place] 4.[place].3.698 [place] .3.235146 084.8 Medica l .8 [place] 2020-01-01 2020-01-01 Orders Doctor 1.2.840.4 [id number] Univers 00:00:00 00:00:00 Only Unassigned, 24375.1.1 ity of [place] 3.104.2.7 [place] .3.022198 Medica l .8 [place] 2019-10-22 2019-10-22 Outpatient R CHELSY ROMO [facility] [id number] Univers 15:45:00 15:45:00 ity of [facility] 2019-09-12 2019-09-12 Urgent Unknown, Attending 1.2.840.1 [id number] Univers 17:51:35 19:25:20 Care Ruchi Matt 45179.1.1 ity of 3.104.2.7 [place] .3.764375 Medica l .8 [place] 2019-09-12 2019-09-12 Outpatient R UNKNOWN, [facility] [id number] Univers 18:00:00 18:00:00 ATTENDING ity of [facility] 2019-07-04 2019-07-04 Orders Doctor 1.2.840.8 [id number] Univers 00:00:00 00:00:00 Only Unassigned, 78029.1.1 ity of [place] 3.104.2.7 [place] .3.492466 Medica l .8 [place] 2019-04-02 2019-04-02 Orders Doctor 1.2.840.6 [id number] Univers 00:00:00 00:00:00 Only Unassigned, 82616.1.1 ity of [place] 3.104.2.7 [place] .3.320211 Medica l .8 [place] 2018-10-31 2018-10-31 Nurse Nilton Montes 1.2.840.1 [id number] Univers 14:59:26 16:42:50 Visit Nurse, Han Rai 25743.1.1 ity of 3.104.2.7 [place] .3.896776 Medica l .8 [place] Results Test Description Test Time Test Comments Results Result Comments Source POCT TEST 2022-04-11 01:46:00 Test Item Value Reference Range Interpretation Comme nts POCT PREG (test code = 1605) Negative On board controls acceptable with C Line (test code = 3574) Present POCT PREG LOT # (test code = 3575) HCG [id number] POCT PREG TEST DATE (test code = 3576) 07/02/2023 Lab Interpretation (test code = 41237-3) [id number] 01:46:00 Test Item Value Reference Range Interpretation Comments POCT PREG (test code = 1605) Negative On board controls acceptable with Present C Line (test code = 3574) POCT PREG LOT # (test code = HCG [id number]) POCT PREG TEST DATE (test 07/02/2023 code = 3576) Lab Interpretation (test code = Normal 47286-9) [facility] [id number] 01:46:00 Test Item Value Reference Range Interpretation Comments POCT PREG (test code = 1605) Negative On board controls acceptable with Present C Line (test code = 3574) POCT PREG LOT # (test code = HCG 20110903) POCT PREG TEST DATE (test 07/02/2023 code = 3576) Lab Interpretation (test code = Normal 50483-3) [facility] [id number] 01:46:00 Test Item Value Reference Range Interpretation Comments POCT PREG (test code = 1605) Negative On board controls acceptable with Present C Line (test code = 3574) POCT PREG LOT # (test code = HCG 20110903) POCT PREG TEST DATE (test 07/02/2023 code = 3576) Lab Interpretation (test code = Normal 01854-2) [facility] [id number] 01:46:00 Test Item Value Reference Range Interpretation Comments POCT PREG (test code = 1605) Negative On board controls acceptable with Present C Line (test code = 3574) POCT PREG LOT # (test code = HCG 20110903) POCT PREG TEST DATE (test 07/02/2023 code = 3576) Lab Interpretation (test code = Normal 79120-9) [facility] [id number] 01:46:00 Test Item Value Reference Range Interpretation Comments POCT PREG (test code = 1605) Negative On board controls acceptable with Present C Line (test code = 3574) POCT PREG LOT # (test code = HCG 20110903) POCT PREG TEST DATE (test 07/02/2023 code = 3576) Lab Interpretation (test code = Normal 50195-8) [facility] [id number] 01:46:00 Test Item Value Reference Range Interpretation Comments POCT PREG (test code = 1605) Negative On board controls acceptable with Present C Line (test code = 3574) POCT PREG LOT # (test code = HCG 20110903) POCT PREG TEST DATE (test 07/02/2023 code = 3576) Lab Interpretation (test code = Normal 87363-0) [facility] [id number] 01:46:00 Test Item Value Reference Range Interpretation Comments POCT PREG (test code = 1605) Negative On board controls acceptable with Present C Line (test code = 3574) POCT PREG LOT # (test code = HCG 20110903) POCT PREG TEST DATE (test 07/02/2023 code = 3576) Lab Interpretation (test code = Normal 04751-4) [facility] [id number] 01:46:00 Test Item Value Reference Range Interpretation Comments POCT PREG (test code = 1605) Negative On board controls acceptable with Present C Line (test code = 3574) POCT PREG LOT # (test code = HCG 20110903) POCT PREG TEST DATE (test 07/02/2023 code = 3576) Lab Interpretation (test code = Normal 45080-5) [facility] [id number] 01:46:00 Test Item Value Reference Range Interpretation Comments POCT PREG (test code = 1605) Negative On board controls acceptable with Present C Line (test code = 3574) POCT PREG LOT # (test code = HCG 20110903) POCT PREG TEST DATE (test 07/02/2023 code = 3576) Lab Interpretation (test code = Normal 74049-6) [facility] [id number] 01:46:00 Test Item Value Reference Range Interpretation Comments POCT PREG (test code = 1605) Negative On board controls acceptable with Present C Line (test code = 3574) POCT PREG LOT # (test code = HCG 20110903) POCT PREG TEST DATE (test 07/02/2023 code = 3576) Lab Interpretation (test code = Normal 36808-1) [facility] [id number] 01:46:00 Test Item Value Reference Range Interpretation Comments POCT PREG (test code = 1605) Negative On board controls acceptable with Present C Line (test code = 3574) POCT PREG LOT # (test code = HCG 20110903) POCT PREG TEST DATE (test 07/02/2023 code = 3576) Lab Interpretation (test code = Normal 72795-1) [facility] [id number] 01:46:00 Test Item Value Reference Range Interpretation Comments POCT PREG (test code = 1605) Negative On board controls acceptable with Present C Line (test code = 3574) POCT PREG LOT # (test code = HCG 20110903) POCT PREG TEST DATE (test 07/02/2023 code = 3576) Lab Interpretation (test code = Normal 36717-9) [facility] [id number] 01:46:00 Test Item Value Reference Range Interpretation Comments POCT PREG (test code = 1605) Negative On board controls acceptable with Present C Line (test code = 3574) POCT PREG LOT # (test code = HCG 20110903) POCT PREG TEST DATE (test 07/02/2023 code = 3576) Lab Interpretation (test code = Normal 40934-8) [facility] [id number] 01:46:00 Test Item Value Reference Range Interpretation Comments POCT PREG (test code = 1605) Negative On board controls acceptable with Present C Line (test code = 3574) POCT PREG LOT # (test code = HCG 20110903) POCT PREG TEST DATE (test 07/02/2023 code = 3576) Lab Interpretation (test code = Normal 93611-2) [facility] [id number] 01:46:00 Test Item Value Reference Range Interpretation Comments POCT PREG (test code = 1605) Negative On board controls acceptable with Present C Line (test code = 3574) POCT PREG LOT # (test code = HCG 20110903) POCT PREG TEST DATE (test 07/02/2023 code = 3576) Lab Interpretation (test code = Normal 48120-5) [facility] [id number] 01:46:00 Test Item Value Reference Range Interpretation Comments POCT PREG (test code = 1605) Negative On board controls acceptable with Present C Line (test code = 3574) POCT PREG LOT # (test code = HCG 20110903) POCT PREG TEST DATE (test 07/02/2023 code = 3576) Lab Interpretation (test code = Normal 21417-4) [facility] [id number] 01:46:00 Test Item Value Reference Range Interpretation Comments POCT PREG (test code = 1605) Negative On board controls acceptable with Present C Line (test code = 3574) POCT PREG LOT # (test code = HCG 20110903) POCT PREG TEST DATE (test 07/02/2023 code = 3576) Lab Interpretation (test code = Normal 63326-6) [facility] [id number] 01:46:00 Test Item Value Reference Range Interpretation Comments POCT PREG (test code = 1605) Negative On board controls acceptable with Present C Line (test code = 3574) POCT PREG LOT # (test code = HCG 20110903) POCT PREG TEST DATE (test 07/02/2023 code = 3576) Lab Interpretation (test code = Normal 02208-6) [facility] [id number] 01:46:00 Test Item Value Reference Range Interpretation Comments POCT PREG (test code = 1605) Negative On board controls acceptable with Present C Line (test code = 3574) POCT PREG LOT # (test code = HCG 20110903) POCT PREG TEST DATE (test 07/02/2023 code = 3576) Lab Interpretation (test code = Normal 44837-0) [facility] [id number] 01:46:00 Test Item Value Reference Range Interpretation Comments POCT PREG (test code = 1605) Negative On board controls acceptable with Present C Line (test code = 3574) POCT PREG LOT # (test code = HCG 20110903) POCT PREG TEST DATE (test 07/02/2023 code = 3576) Lab Interpretation (test code = Normal 50188-9) [facility] [id number] 01:46:00 Test Item Value Reference Range Interpretation Comments POCT PREG (test code = 1605) Negative On board controls acceptable with Present C Line (test code = 3574) POCT PREG LOT # (test code = HCG 20110903) POCT PREG TEST DATE (test 07/02/2023 code = 3576) Lab Interpretation (test code = Normal 86881-0[id number] Test Item Value Reference Range Interpretation Comments POCT PREG (test code = 1605) Negative On board controls acceptable with Present C Line (test code = 3574) POCT PREG LOT # (test code = HCG 20110903) POCT PREG TEST DATE (test 07/02/2023 code = 3576) Lab Interpretation (test code = Normal 74279-6) [facility] METABOLIC PANEL (NA, K, CL, CO2, GLUCOSE, BUN, CREATININE, CA)2022-04-05 11:08:28 Test Item Value Reference Range Interpretation Comments NA (test code = 137 mmol/L 135-145 6456194378) K (test code = 3.8 mmol/L 3.5-5 7471130177) CL (test code = 104 mmol/L 98-108 8754367597) CO2 TOTAL (test code 27 mmol/L 23-31 = 0057719137) AGAP (test code = 2-16 9728070749) BUN (test code = 13 mg/dL 7-23 5498403932) GLUCOSE (test code = 106 mg/dL 70-110 9195033940) CREATININE (test code 0.58 mg/dL 0.5-1.04 = 3190798598) CALCIUM (test code = 8.6 mg/dL 8.6-10.6 0885274893) eGFR (test code = mL/min/1.73m2 4314728292) MEDHAT (test code = MEDHAT) Association of [...] or urine or abnormalities in imaging tests). [facility] (NA, K, CL, CO2, GLUCOSE, BUN, CREATININE, CA)2022-04-05 11:08:28 Test Item Value Reference Range Interpretation Comments NA (test code = 137 mmol/L 135-145 3001723769) K (test code = 3.8 mmol/L 3.5-5 1754271270) CL (test code = 104 mmol/L 98-108 7979827964) CO2 TOTAL (test code 27 mmol/L 23-31 = 8450976510) AGAP (test code = 2-16 0232282698) BUN (test code = 13 mg/dL 7-23 3417862253) GLUCOSE (test code = 106 mg/dL 70-110 8366105229) CREATININE (test code 0.58 mg/dL 0.5-1.04 = 6927239253) CALCIUM (test code = 8.6 mg/dL 8.6-10.6 8224197073) eGFR (test code = mL/min/1.73m2 1107518573) MEDHAT (test code = MEDHAT) Association of [...] or urine or abnormalities in imaging tests). [facility] (NA, K, CL, CO2, GLUCOSE, BUN, CREATININE, CA)2022-04-05 11:08:28 Test Item Value Reference Range Interpretation Comments NA (test code = 137 mmol/L 135-145 4097641747) K (test code = 3.8 mmol/L 3.5-5 7808532177) CL (test code = 104 mmol/L 98-108 3242493802) CO2 TOTAL (test code 27 mmol/L 23-31 = 6937461867) AGAP (test code = 2-16 7822373353) BUN (test code = 13 mg/dL 7-23 0851617293) GLUCOSE (test code = 106 mg/dL 70-110 3960065355) CREATININE (test code 0.58 mg/dL 0.5-1.04 = 7009376839) CALCIUM (test code = 8.6 mg/dL 8.6-10.6 0644146110) eGFR (test code = mL/min/1.73m2 3285682748) MEDHAT (test code = MEDHAT) Association of [...] or urine or abnormalities in imaging tests). [facility] (NA, K, CL, CO2, GLUCOSE, BUN, CREATININE, CA)2022-04-05 11:08:28 Test Item Value Reference Range Interpretation Comments NA (test code = 137 mmol/L 135-145 7871394342) K (test code = 3.8 mmol/L 3.5-5 4084537966) CL (test code = 104 mmol/L 98-108 8729082014) CO2 TOTAL (test code 27 mmol/L 23-31 = 1188315781) AGAP (test code = 2-16 6610284369) BUN (test code = 13 mg/dL 7-23 8081553732) GLUCOSE (test code = 106 mg/dL 70-110 8173190874) CREATININE (test code 0.58 mg/dL 0.5-1.04 = 1827546494) CALCIUM (test code = 8.6 mg/dL 8.6-10.6 2031478006) eGFR (test code = mL/min/1.73m2 1762763585) MEDHAT (test code = MEDHAT) Association of [...] or urine or abnormalities in imaging tests). [facility] (NA, K, CL, CO2, GLUCOSE, BUN, CREATININE, CA)2022-04-05 11:08:28 Test Item Value Reference Range Interpretation Comments NA (test code = 137 mmol/L 135-145 2322788906) K (test code = 3.8 mmol/L 3.5-5 5796538995) CL (test code = 104 mmol/L 98-108 9354486733) CO2 TOTAL (test code 27 mmol/L 23-31 = 0687949443) AGAP (test code = 2-16 1550336932) BUN (test code = 13 mg/dL 7-23 2053169802) GLUCOSE (test code = 106 mg/dL 70-110 1889850794) CREATININE (test code 0.58 mg/dL 0.5-1.04 = 6350207818) CALCIUM (test code = 8.6 mg/dL 8.6-10.6 9677992548) eGFR (test code = mL/min/1.73m2 7425104693) MEDHAT (test code = MEDHAT) Association of [...] or urine or abnormalities in imaging tests). [facility] (NA, K, CL, CO2, GLUCOSE, BUN, CREATININE, CA)2022-04-05 11:08:28 Test Item Value Reference Range Interpretation Comments NA (test code = 137 mmol/L 135-145 8672891396) K (test code = 3.8 mmol/L 3.5-5 7993611096) CL (test code = 104 mmol/L 98-108 6565335212) CO2 TOTAL (test code 27 mmol/L 23-31 = 5247475803) AGAP (test code = 2-16 0116799561) BUN (test code = 13 mg/dL 7-23 2764680444) GLUCOSE (test code = 106 mg/dL 70-110 0382925147) CREATININE (test code 0.58 mg/dL 0.5-1.04 = 8077186209) CALCIUM (test code = 8.6 mg/dL 8.6-10.6 9950833230) eGFR (test code = mL/min/1.73m2 4000931400) MEDHAT (test code = MEDHAT) Association of [...] or urine or abnormalities in imaging tests). [facility] METABOLIC PANEL (NA, K, CL, CO2, GLUCOSE, BUN, CREATININE, CA)2022-04-05 11:08:28 Test Item Value Reference Range Interpretation Comments NA (test code = 137 mmol/L 135-145 4604359470) K (test code = 3.8 mmol/L 3.5-5 4688367092) CL (test code = 104 mmol/L 98-108 8390689180) CO2 TOTAL (test code 27 mmol/L 23-31 = 4440158213) AGAP (test code = 2-16 5467767624) BUN (test code = 13 mg/dL 7-23 3652599139) GLUCOSE (test code = 106 mg/dL 70-110 7592819758) CREATININE (test code 0.58 mg/dL 0.5-1.04 = 9052203572) CALCIUM (test code = 8.6 mg/dL 8.6-10.6 9161887735) eGFR (test code = mL/min/1.73m2 2047322554) MEDHAT (test code = MEDHAT) Association of [...] or urine or abnormalities in imaging tests). [facility] METABOLIC PANEL (NA, K, CL, CO2, GLUCOSE, BUN, CREATININE, CA)2022-04-05 11:08:28 Test Item Value Reference Range Interpretation Comments NA (test code = 137 mmol/L 135-145 7308646745) K (test code = 3.8 mmol/L 3.5-5 0812830649) CL (test code = 104 mmol/L 98-108 2274382579) CO2 TOTAL (test code 27 mmol/L 23-31 = 6001574492) AGAP (test code = 2-16 1772907673) BUN (test code = 13 mg/dL 7-23 5184900941) GLUCOSE (test code = 106 mg/dL 70-110 5044625080) CREATININE (test code 0.58 mg/dL 0.5-1.04 = 8490188048) CALCIUM (test code = 8.6 mg/dL 8.6-10.6 4412666706) eGFR (test code = mL/min/1.73m2 0147835876) MEDHAT (test code = MEDHAT) Association of [...] or urine or abnormalities in imaging tests). [facility] METABOLIC PANEL (NA, K, CL, CO2, GLUCOSE, BUN, CREATININE, CA)2022-04-05 11:08:28 Test Item Value Reference Range Interpretation Comments NA (test code = 137 mmol/L 135-145 3714996111) K (test code = 3.8 mmol/L 3.5-5 5895508989) CL (test code = 104 mmol/L 98-108 7667571233) CO2 TOTAL (test code 27 mmol/L 23-31 = 6997805356) AGAP (test code = 2-16 8406619690) BUN (test code = 13 mg/dL 7-23 0452558901) GLUCOSE (test code = 106 mg/dL 70-110 3291194618) CREATININE (test code 0.58 mg/dL 0.5-1.04 = 0487724086) CALCIUM (test code = 8.6 mg/dL 8.6-10.6 6919134730) eGFR (test code = mL/min/1.73m2 6619157119) MEDHAT (test code = MEDHAT) Association of [...] or urine or abnormalities in imaging tests). [facility] METABOLIC PANEL (NA, K, CL, CO2, GLUCOSE, BUN, CREATININE, CA)2022-04-05 11:08:28 Test Item Value Reference Range Interpretation Comments NA (test code = 137 mmol/L 135-145 1477628451) K (test code = 3.8 mmol/L 3.5-5 2765895336) CL (test code = 104 mmol/L 98-108 7861327212) CO2 TOTAL (test code 27 mmol/L 23-31 = 3233271068) AGAP (test code = 2-16 1534922564) BUN (test code = 13 mg/dL 7-23 7161705540) GLUCOSE (test code = 106 mg/dL 70-110 2169061900) CREATININE (test code 0.58 mg/dL 0.5-1.04 = 9841337474) CALCIUM (test code = 8.6 mg/dL 8.6-10.6 9363442050) eGFR (test code = mL/min/1.73m2 0835112522) MEDHAT (test code = MEDHAT) Association of [...] or urine or abnormalities in imaging tests). [facility] METABOLIC PANEL (NA, K, CL, CO2, GLUCOSE, BUN, CREATININE, CA)2022-04-05 11:08:28 Test Item Value Reference Range Interpretation Comments NA (test code = 137 mmol/L 135-145 4233505824) K (test code = 3.8 mmol/L 3.5-5 7585521418) CL (test code = 104 mmol/L 98-108 7121719756) CO2 TOTAL (test code 27 mmol/L 23-31 = 1972577710) AGAP (test code = 2-16 6318144023) BUN (test code = 13 mg/dL 7-23 8693314282) GLUCOSE (test code = 106 mg/dL 70-110 0261859968) CREATININE (test code 0.58 mg/dL 0.5-1.04 = 7447580792) CALCIUM (test code = 8.6 mg/dL 8.6-10.6 1174397541) eGFR (test code = mL/min/1.73m2 8112573654) MEDHAT (test code = MEDHAT) Association of [...] or urine or abnormalities in imaging tests). [facility] METABOLIC PANEL (NA, K, CL, CO2, GLUCOSE, BUN, CREATININE, CA)2022-04-05 11:08:28 Test Item Value Reference Range Interpretation Comments NA (test code = 137 mmol/L 135-145 1712857592) K (test code = 3.8 mmol/L 3.5-5 0497035294) CL (test code = 104 mmol/L 98-108 9656913410) CO2 TOTAL (test code 27 mmol/L 23-31 = 3548776571) AGAP (test code = 2-16 5770669124) BUN (test code = 13 mg/dL 7-23 8162487319) GLUCOSE (test code = 106 mg/dL 70-110 3276276840) CREATININE (test code 0.58 mg/dL 0.5-1.04 = 4729014378) CALCIUM (test code = 8.6 mg/dL 8.6-10.6 3257551475) eGFR (test code = mL/min/1.73m2 2505846810) MEDHAT (test code = MEDHAT) Association of [...] or urine or abnormalities in imaging tests). [facility] METABOLIC PANEL (NA, K, CL, CO2, GLUCOSE, BUN, CREATININE, CA)2022-04-05 11:08:28 Test Item Value Reference Range Interpretation Comments NA (test code = 137 mmol/L 135-145 8634411199) K (test code = 3.8 mmol/L 3.5-5 3523467929) CL (test code = 104 mmol/L 98-108 8038117255) CO2 TOTAL (test code 27 mmol/L 23-31 = 5362095998) AGAP (test code = 2-16 9821399629) BUN (test code = 13 mg/dL 7-23 6437225414) GLUCOSE (test code = 106 mg/dL 70-110 3664699154) CREATININE (test code 0.58 mg/dL 0.5-1.04 = 2625606010) CALCIUM (test code = 8.6 mg/dL 8.6-10.6 8989610882) eGFR (test code = mL/min/1.73m2 5904276553) MEDHAT (test code = MEDHAT) Association of [...] or urine or abnormalities in imaging tests). [facility] (NA, K, CL, CO2, GLUCOSE, BUN, CREATININE, CA)2022-04-05 11:08:28 Test Item Value Reference Range Interpretation Comments NA (test code = 137 mmol/L 135-145 6228425268) K (test code = 3.8 mmol/L 3.5-5 4578537581) CL (test code = 104 mmol/L 98-108 7314671857) CO2 TOTAL (test code 27 mmol/L 23-31 = 2876311344) AGAP (test code = 2-16 4748818691) BUN (test code = 13 mg/dL 7-23 0751291347) GLUCOSE (test code = 106 mg/dL 70-110 7286935916) CREATININE (test code 0.58 mg/dL 0.5-1.04 = 2654874693) CALCIUM (test code = 8.6 mg/dL 8.6-10.6 4556403148) eGFR (test code = mL/min/1.73m2 1611676506) MEDHAT (test code = MEDHAT) Association of [...] or urine or abnormalities in imaging tests). [facility] (NA, K, CL, CO2, GLUCOSE, BUN, CREATININE, CA)2022-04-05 11:08:28 Test Item Value Reference Range Interpretation Comments NA (test code = 137 mmol/L 135-145 2280093660) K (test code = 3.8 mmol/L 3.5-5 5576413263) CL (test code = 104 mmol/L 98-108 1786976995) CO2 TOTAL (test code 27 mmol/L 23-31 = 4206005390) AGAP (test code = 2-16 5937930549) BUN (test code = 13 mg/dL 7-23 3491525576) GLUCOSE (test code = 106 mg/dL 70-110 0832560931) CREATININE (test code 0.58 mg/dL 0.5-1.04 = 3759250082) CALCIUM (test code = 8.6 mg/dL 8.6-10.6 6740884209) eGFR (test code = mL/min/1.73m2 2069647386) MEDHAT (test code = MEDHAT) Association of [...] or urine or abnormalities in imaging tests). [facility] (NA, K, CL, CO2, GLUCOSE, BUN, CREATININE, CA)2022-04-05 11:08:28 Test Item Value Reference Range Interpretation Comments NA (test code = 137 mmol/L 135-145 0308346699) K (test code = 3.8 mmol/L 3.5-5.0 3892885904) CL (test code = 104 mmol/L 98-108 6615087019) CO2 TOTAL (test code 27 mmol/L 23-31 = 4775809799) AGAP (test code = 2-16 3398279533) BUN (test code = 13 mg/dL 7-23 7454957319) GLUCOSE (test code = 106 mg/dL 70-110 6175429109) CREATININE (test code 0.58 mg/dL 0.50-1.04 = 1432922379) CALCIUM (test code = 8.6 mg/dL 8.6-10.6 9511875219) eGFR (test code = mL/min/1.73m2 1419578336) MEDHAT (test code = MEDHAT) Association of [...] or urine or abnormalities in imaging tests). [facility] (NA, K, CL, CO2, GLUCOSE, BUN, CREATININE, CA)2022-04-05 11:08:28 Test Item Value Reference Range Interpretation Comments NA (test code = 137 mmol/L 135-145 3439694543) K (test code = 3.8 mmol/L 3.5-5.0 1647557688) CL (test code = 104 mmol/L 98-108 4752524005) CO2 TOTAL (test code 27 mmol/L 23-31 = 1932148292) AGAP (test code = 2-16 3298925975) BUN (test code = 13 mg/dL 7-23 2169348306) GLUCOSE (test code = 106 mg/dL 70-110 6887041009) CREATININE (test code 0.58 mg/dL 0.50-1.04 = 9850182897) CALCIUM (test code = 8.6 mg/dL 8.6-10.6 3172819504) eGFR (test code = mL/min/1.73m2 9999448883) MEDHAT (test code = MEDHAT) Association of [...] or urine or abnormalities in imaging tests). [facility] METABOLIC PANEL (NA, K, CL, CO2, GLUCOSE, BUN, CREATININE, CA)2022-04-05 11:08:28 Test Item Value Reference Range Interpretation Comments NA (test code = 137 mmol/L 135-145 0106378582) K (test code = 3.8 mmol/L 3.5-5.0 2214187787) CL (test code = 104 mmol/L 98-108 5878525684) CO2 TOTAL (test code 27 mmol/L 23-31 = 3013896567) AGAP (test code = 2-16 1422195361) BUN (test code = 13 mg/dL 7-23 2132774332) GLUCOSE (test code = 106 mg/dL 70-110 3920399090) CREATININE (test code 0.58 mg/dL 0.50-1.04 = 6909904582) CALCIUM (test code = 8.6 mg/dL 8.6-10.6 6052911638) eGFR (test code = mL/min/1.73m2 2771290913) MEDHAT (test code = MEDHAT) Association of [...] or urine or abnormalities in imaging tests). [facility] METABOLIC PANEL (NA, K, CL, CO2, GLUCOSE, BUN, CREATININE, CA)2022-04-05 11:08:28 Test Item Value Reference Range Interpretation Comments NA (test code = 137 mmol/L 135-145 7776746633) K (test code = 3.8 mmol/L 3.5-5.0 1909930138) CL (test code = 104 mmol/L 98-108 2602512477) CO2 TOTAL (test code 27 mmol/L 23-31 = 5742390079) AGAP (test code = 2-16 8834809984) BUN (test code = 13 mg/dL 7-23 0953440120) GLUCOSE (test code = 106 mg/dL 70-110 7960883494) CREATININE (test code 0.58 mg/dL 0.50-1.04 = 4549027900) CALCIUM (test code = 8.6 mg/dL 8.6-10.6 6072191662) eGFR (test code = mL/min/1.73m2 5384832802) MEDHAT (test code = MEDHAT) Association of [...] or urine or abnormalities in imaging tests). [facility] METABOLIC PANEL (NA, K, CL, CO2, GLUCOSE, BUN, CREATININE, CA)2022-04-05 11:08:28 Test Item Value Reference Range Interpretation Comments NA (test code = 137 mmol/L 135-145 3324755266) K (test code = 3.8 mmol/L 3.5-5.0 1774967627) CL (test code = 104 mmol/L 98-108 1877022533) CO2 TOTAL (test code 27 mmol/L 23-31 = 1610203090) AGAP (test code = 2-16 1695355625) BUN (test code = 13 mg/dL 7-23 5288721999) GLUCOSE (test code = 106 mg/dL 70-110 5204182620) CREATININE (test code 0.58 mg/dL 0.50-1.04 = 3436787378) CALCIUM (test code = 8.6 mg/dL 8.6-10.6 7642781059) eGFR (test code = mL/min/1.73m2 3120622382) MEDHAT (test code = MEDHAT) Association of [...] or urine or abnormalities in imaging tests). [facility] METABOLIC PANEL (NA, K, CL, CO2, GLUCOSE, BUN, CREATININE, CA)2022-04-05 11:08:28 Test Item Value Reference Range Interpretation Comments NA (test code = 137 mmol/L 135-145 4296395381) K (test code = 3.8 mmol/L 3.5-5.0 3002681309) CL (test code = 104 mmol/L 98-108 2675097189) CO2 TOTAL (test code 27 mmol/L 23-31 = 9748229386) AGAP (test code = 2-16 5610512713) BUN (test code = 13 mg/dL 7-23 6207467082) GLUCOSE (test code = 106 mg/dL 70-110 5632228616) CREATININE (test code 0.58 mg/dL 0.50-1.04 = 4232305300) CALCIUM (test code = 8.6 mg/dL 8.6-10.6 4683079368) eGFR (test code = mL/min/1.73m2 8844723268) MEDHAT (test code = MEDHAT) Association of [...] or urine or abnormalities in imaging tests). [facility] METABOLIC PANEL (NA, K, CL, CO2, GLUCOSE, BUN, CREATININE, CA)2022-04-05 11:08:28 Test Item Value Reference Range Interpretation Comments NA (test code = 137 mmol/L 135-145 7865395689) K (test code = 3.8 mmol/L 3.5-5.0 0526785662) CL (test code = 104 mmol/L 98-108 9363974243) CO2 TOTAL (test code 27 mmol/L 23-31 = 7336738370) AGAP (test code = 2-16 3631663392) BUN (test code = 13 mg/dL 7-23 4310330953) GLUCOSE (test code = 106 mg/dL 70-110 9165380595) CREATININE (test code 0.58 mg/dL 0.50-1.04 = 8732765687) CALCIUM (test code = 8.6 mg/dL 8.6-10.6 4905155870) eGFR (test code = mL/min/1.73m2 2922149006) MEDHAT (test code = MEDHAT) Association of [...] or urine or abnormalities in imaging tests). [facility] METABOLIC PANEL (NA, K, CL, CO2, GLUCOSE, BUN, CREATININE, CA)2022-04-05 11:08:28 Test Item Value Reference Range Interpretation Comments NA (test code = 137 mmol/L 135-145 7734062673) K (test code = 3.8 mmol/L 3.5-5.0 8331745506) CL (test code = 104 mmol/L 98-108 2845101814) CO2 TOTAL (test code 27 mmol/L 23-31 = 8717250506) AGAP (test code = 2-16 7055190775) BUN (test code = 13 mg/dL 7-23 7637947046) GLUCOSE (test code = 106 mg/dL 70-110 9824216536) CREATININE (test code 0.58 mg/dL 0.50-1.04 = 3236783861) CALCIUM (test code = 8.6 mg/dL 8.6-10.6 8771928606) eGFR (test code = mL/min/1.73m2 3667641732) MEDHAT (test code = MEDHAT) Association of [...] or urine or abnormalities in imaging tests). [facility] METABOLIC PANEL (NA, K, CL, CO2, GLUCOSE, BUN, CREATININE, CA)2022-04-05 11:08:28 Test Item Value Reference Range Interpretation Comments NA (test code = 137 mmol/L 135-145 1803413947) K (test code = 3.8 mmol/L 3.5-5.0 5164178845) CL (test code = 104 mmol/L 98-108 7749429226) CO2 TOTAL (test code 27 mmol/L 23-31 = 3098483567) AGAP (test code = 2-16 7673123302) BUN (test code = 13 mg/dL 7-23 6650967645) GLUCOSE (test code = 106 mg/dL 70-110 6466156516) CREATININE (test code 0.58 mg/dL 0.50-1.04 = 9505943135) CALCIUM (test code = 8.6 mg/dL 8.6-10.6 9916224365) eGFR (test code = mL/min/1.73m2 9639600825) MEDHAT (test code = MEDHAT) Association of [...] or urine or abnormalities in imaging tests). [facility] with [id number] 10:50:28 Test Item Value Reference Range Interpretation Comments WBC (test code = See_Comment [Automated 6922-2) message] The sy stem which generated this result transmitted reference range : 4.30 - 11.10 10*3/?L. The reference range was not used to interpret this result as normal/abnormal . RBC (test code = See_Comment [Automated 086-8) message] The sy stem which generated this [...] RDW-SD (test code = 43.6 fL 39-49.9 97245-9) RDW-CV (test code = 13.6 % 12-15.5 788-0) PLT (test code = See_Comment [Automated 777-3) message] The sy stem which generated this result transmitted reference range : 166 - 358 10*3/ ?L. The reference r mann was not used to interpret this result as normal/abnormal . MPV (test code = 9.9 fL 9.5-12.9 37715-4) NRBC/100 WBC (test See_Comment [Automat ed code = 9411353474) message] The system which generated this result transmitted reference range : 0.0 - 10.0 /100 WBCs. The refer ence range was not u sed to interpret th is result as normal/abnormal . NRBC x10^3 (test code See_Comment [Auto mated = 7025103135) message] The s ystem which generated this result transmitted reference range : 10*3/?L. The reference range was not used to interpret this result as normal/abnormal . GRAN MAT (NEUT) % 65.5 % (test code = 770-8) IMM GRAN % (test code 0.30 % = 1448335351) LYMPH % (test code = 25.3 % 736-9) MONO % (test code = 8.4 % 5905-5) EOS % (test code = 0.0 % 713-8) BASO % (test code = 0.5 % 706-2) GRAN MAT x10^3(ANC) 6.56 10*3/uL 1.88-7.09 (test code = 9449983067) IMM GRAN x10^3 (test 0.03 10*3/uL 0-0.06 code = 2156656900) LYMPH x10^3 (test code 2.53 10*3/uL 1.32-3.29 = 731-0) MONO x10^3 (test code 0.84 10*3/uL 0.33-0.92 = 742-7) EOS x10^3 (test code = 0.03-0.39 L 711-2) BASO x10^3 (test code 0.05 10*3/uL 0.01-0.07 = 704-7) Lab Interpretation Abnormal (test code = 36365-6) [facility] with Ezjiplhgntvs7336-45-42 10:50:28 Test Item Value Reference Range Interpretation Comments WBC (test code = See_Comment [Automated 6690-2) message] The sy stem which generated this [...] RDW-SD (test code = 43.6 fL 39-49.9 50280-1) RDW-CV (test code = 13.6 % 12-15.5 788-0) PLT (test code = See_Comment [Automated 777-3) message] The sy stem which generated this result transmitted reference range : 166 - 358 10*3/ ?L. The reference r mann was not used to interpret this result as normal/abnormal . MPV (test code = 9.9 fL 9.5-12.9 45745-4) NRBC/100 WBC (test See_Comment [Automat ed code = 8333298057) message] The system which generated this result transmitted reference range : 0.0 - 10.0 /100 WBCs. The refer ence range was not u sed to interpret th is result as normal/abnormal . NRBC x10^3 (test code See_Comment [Auto mated = 5852904112) message] The s ystem which generated this result transmitted reference range : 10*3/?L. The reference range was not used to interpret this result as normal/abnormal . GRAN MAT (NEUT) % 65.5 % (test code = 770-8) IMM GRAN % (test code 0.30 % = 4026665917) LYMPH % (test code = 25.3 % 736-9) MONO % (test code = 8.4 % 5905-5) EOS % (test code = 0.0 % 713-8) BASO % (test code = 0.5 % 706-2) GRAN MAT x10^3(ANC) 6.56 10*3/uL 1.88-7.09 (test code = 3523265509) IMM GRAN x10^3 (test 0.03 10*3/uL 0-0.06 code = 3214374415) LYMPH x10^3 (test code 2.53 10*3/uL 1.32-3.29 = 731-0) MONO x10^3 (test code 0.84 10*3/uL 0.33-0.92 = 742-7) EOS x10^3 (test code = 0.03-0.39 L 711-2) BASO x10^3 (test code 0.05 10*3/uL 0.01-0.07 = 704-7) Lab Interpretation Abnormal (test code = 35198-7) [facility] [id number] 01:03:38 Test Item Value Reference Interpretation Comments Range TROPONIN I (test 0.001 ng/mL See_Comment [Automated code = 8764280985) message] The system which generated this result [...] biotin. Lab Interpretation Normal (test code = 38517-6) [facility] [id number] 01:03:38 Test Item Value Reference Interpretation Comments Range TROPONIN I (test 0.001 ng/mL See_Comment [Automated code = 7774715465) message] The system which generated this result [...] biotin. Lab Interpretation Normal (test code = 86881-2) [facility] [id number] 01:03:38 Test Item Value Reference Interpretation Comments Range TROPONIN I (test 0.001 ng/mL See_Comment [Automated code = 9452715839) message] The system which generated this result [...] biotin. Lab Interpretation Normal (test code = 62527-2) [facility] [id number] 01:03:38 Test Item Value Reference Interpretation Comments Range TROPONIN I (test 0.001 ng/mL See_Comment [Automated code = 8469335501) message] The system which generated this result [...] biotin. Lab Interpretation Normal (test code = 79142-0) [facility] [id number] 01:03:38 Test Item Value Reference Interpretation Comments Range TROPONIN I (test 0.001 ng/mL See_Comment [Automated code = 3590420325) message] The system which generated this result [...] biotin. Lab Interpretation Normal (test code = 12788-8) [facility] [id number] 01:03:38 Test Item Value Reference Interpretation Comments Range TROPONIN I (test 0.001 ng/mL See_Comment [Automated code = 3958620471) message] The system which generated this result [...] biotin. Lab Interpretation Normal (test code = 05910-5) [facility] [id number] 01:03:38 Test Item Value Reference Interpretation Comments Range TROPONIN I (test 0.001 ng/mL See_Comment [Automated code = 7982855354) message] The system which generated this result [...] biotin. Lab Interpretation Normal (test code = 03758-7) [facility] [id number] 01:03:38 Test Item Value Reference Interpretation Comments Range TROPONIN I (test 0.001 ng/mL See_Comment [Automated code = 4477255437) message] The system which generated this result [...] biotin. Lab Interpretation Normal (test code = 13759-4) [facility] [id number] 01:03:38 Test Item Value Reference Interpretation Comments Range TROPONIN I (test 0.001 ng/mL See_Comment [Automated code = 3766987359) message] The system which generated this result [...] biotin. Lab Interpretation Normal (test code = 40775-0) [facility] [id number] 01:03:38 Test Item Value Reference Interpretation Comments Range TROPONIN I (test 0.001 ng/mL See_Comment [Automated code = 7096221958) message] The system which generated this result [...] biotin. Lab Interpretation Normal (test code = 73082-3) [facility] [id number] 01:03:38 Test Item Value Reference Interpretation Comments Range TROPONIN I (test 0.001 ng/mL See_Comment [Automated code = 0957262499) message] The system which generated this result [...] biotin. Lab Interpretation Normal (test code = 31996-6) [facility] [id number] 01:03:38 Test Item Value Reference Interpretation Comments Range TROPONIN I (test 0.001 ng/mL See_Comment [Automated code = 0693508002) message] The system which generated this result [...] biotin. Lab Interpretation Normal (test code = 41992-5) [facility] [id number] 01:03:38 Test Item Value Reference Interpretation Comments Range TROPONIN I (test 0.001 ng/mL See_Comment [Automated code = 0817820137) message] The system which generated this result [...] biotin. Lab Interpretation Normal (test code = 96412-0) [facility] [id number] 01:03:38 Test Item Value Reference Interpretation Comments Range TROPONIN I (test 0.001 ng/mL See_Comment [Automated code = 3046021841) message] The system which generated this result [...] biotin. Lab Interpretation Normal (test code = 16181-9) [facility] [id number] 01:03:38 Test Item Value Reference Interpretation Comments Range TROPONIN I (test 0.001 ng/mL See_Comment [Automated code = 9504801657) message] The system which generated this result [...] biotin. Lab Interpretation Normal (test code = 04209-0) [facility] [id number] 01:03:38 Test Item Value Reference Interpretation Comments Range TROPONIN I (test 0.001 ng/mL See_Comment [Automated code = 0605459024) message] The system which generated this result [...] biotin. Lab Interpretation Normal (test code = 66833-0) [facility] [id number] 01:03:38 Test Item Value Reference Interpretation Comments Range TROPONIN I (test 0.001 ng/mL See_Comment [Automated code = 8588339077) message] The system which generated this result [...] biotin. Lab Interpretation Normal (test code = 36795-5) [facility] [id number] 01:03:38 Test Item Value Reference Interpretation Comments Range TROPONIN I (test 0.001 ng/mL See_Comment [Automated code = 9300291228) message] The system which generated this result [...] biotin. Lab Interpretation Normal (test code = 60199-8) [facility] [id number] 01:03:38 Test Item Value Reference Interpretation Comments Range TROPONIN I (test 0.001 ng/mL See_Comment [Automated code = 5424387512) message] The system which generated this result [...] biotin. Lab Interpretation Normal (test code = 23686-3) [facility] [id number] 01:03:38 Test Item Value Reference Interpretation Comments Range TROPONIN I (test 0.001 ng/mL See_Comment [Automated code = 8566737654) message] The system which generated this result [...] biotin. Lab Interpretation Normal (test code = 20525-8) [facility] [id number] 01:03:38 Test Item Value Reference Interpretation Comments Range TROPONIN I (test 0.001 ng/mL See_Comment [Automated code = 7426595627) message] The system which generated this result [...] biotin. Lab Interpretation Normal (test code = 23252-9) [facility] [id number] 01:03:38 Test Item Value Reference Interpretation Comments Range TROPONIN I (test 0.001 ng/mL See_Comment [Automated code = 8427236287) message] The system which generated this result [...] biotin. Lab Interpretation Normal (test code = 35779-2) [facility] [id number] 01:03:38 Test Item Value Reference Interpretation Comments Range TROPONIN I (test 0.001 ng/mL See_Comment [Automated code = 4989496308) message] The system which generated this result [...] biotin. Lab Interpretation Normal (test code = 53547-6) [id number] Test Item Value Reference Interpretation Comments Range TROPONIN I (test 0.001 ng/mL See_Comment [Automated code = 0951611258) message] The system which generated this result [...] biotin. Lab Interpretation Normal (test code = 89971-5) [facility] Gvymxaz2749-81-13 21:06:03 Test Item Value Reference Range Interpretation Comments ABO & RH (test code A Positive Performe d at [facility] = 20) [facility] [address] [place], [place] [address]Toll Free: [phone] A No. [id number] IAT (test code = Negative Performed a t [facility] 1185) [facility] [address] [place], [place] [address]Toll Free: [phone] A No. [id number] [facility] [id number] 21:06:03 Test Item Value Reference Range Interpretation Comments ABO & RH (test code A Positive Performe d at [facility] = 20) Laboratory [facility] [place], [place] [address]Toll Free: [phone] A No. [id number] IAT (test code = Negative Performed a t [facility] 1185) Laboratory [facility] Blood [place] [address]Toll Free: [phone] A No. [id number] [facility] [id number] 21:06:03 Test Item Value Reference Range Interpretation Comments ABO & RH (test code A Positive Performe d at [facility] = 20) Laboratory [facility] Blood [place] [address]Toll Free: [phone] A No. [id number] IAT (test code = Negative Performed a t [facility] 1185) Laboratory [facility] [place] [address]Toll Free: [phone] A No. [id number] [facility] and Screen - ONCE Uuzkyml9608-02-07 21:06:03 Test Item Value Reference Range Interpretation Comments ABO & RH (test code A Positive Performe d at [facility] = 20) Laboratory [facility] Blood [place] [address]Toll Free: [phone] A No. [id number] IAT (test code = Negative Performed a t [facility] 1185) Laboratory [facility] [address] [place], [place] [address]Toll Free: [phone] A No. [id number] [facility] [id number] 21:06:03 Test Item Value Reference Range Interpretation Comments ABO & RH (test code A Positive Performe d at [facility] = 20) Laboratory [facility] [address] [place], [place] [address]Toll Free: [phone] A No. [id number] IAT (test code = Negative Performed a t [facility] 1185) Laboratory [facility] [address] [place], [place] [address]Toll Free: [phone] A No. [id number] [facility] and Screen - ONCE [id number] 21:06:03 Test Item Value Reference Range Interpretation Comments ABO & RH (test code A Positive Performe d at [facility] = 20) Laboratory [facility] [address] [place], [place] [address]Toll Free: [phone] A No. [id number] IAT (test code = Negative Performed a t [facility] 1185) Laboratory [facility] Blood [place] [address]Toll Free: [phone] A No. [id number] [facility] and Screen - ONCE Yqkxnbk0851-29-04 21:06:03 Test Item Value Reference Range Interpretation Comments ABO & RH (test code A Positive Performe d at [facility] = 20) Laboratory [facility] [address] [place], [place] [address]Toll Free: [phone] A No. [id number] IAT (test code = Negative Performed a t [facility] 1185) Laboratory [facility] [address] [place], [place] [address]Toll Free: [phone] A No. [id number] [facility] and Screen - ONCE [id number] 21:06:03 Test Item Value Reference Range Interpretation Comments ABO & RH (test code A Positive Performe d at [facility] = 20) Laboratory [facility] [address] [place], [place] [address]Toll Free: [phone] A No. [id number] IAT (test code = Negative Performed a t [facility] 1185) Laboratory [facility] [address] [place], [place] [address]Toll Free: [phone] A No. [id number] [facility] and Screen - ONCE [id number] 21:06:03 Test Item Value Reference Range Interpretation Comments ABO & RH (test code A Positive Performe d at [facility] = 20) Laboratory [facility] [address] [place], [place] [address]Toll Free: [phone] A No. [id number] IAT (test code = Negative Performed a t [facility] 1185) Laboratory [facility] Blood [place] [address]Toll Free: [phone] A No. [id number] [facility] and Screen - ONCE [id number] 21:06:03 Test Item Value Reference Range Interpretation Comments ABO & RH (test code A Positive Performe d at [facility] = 20) Laboratory [facility] Blood [place] [address]Toll Free: [phone] A No. [id number] IAT (test code = Negative Performed a t [facility] 1185) Laboratory [facility] Blood [place] [address]Toll Free: [phone] A No. [id number] [facility] and Screen - ONCE Zqjbzar1774-93-96 21:06:03 Test Item Value Reference Range Interpretation Comments ABO & RH (test code A Positive Performe d at [facility] = 20) Laboratory [facility] [address] [place], [place] [address]Toll Free: [phone] A No. [id number] IAT (test code = Negative Performed a t [facility] 1185) Laboratory [facility] [address] [place], [place] [address]Toll Free: [phone] A No. [id number] [facility] and Screen - ONCE Spojayy9417-81-44 21:06:03 Test Item Value Reference Range Interpretation Comments ABO & RH (test code A Positive Performe d at [facility] = 20) Laboratory [facility] [address] [place], [place] [address]Toll Free: [phone] A No. [id number] IAT (test code = Negative Performed a t [facility] 1185) Laboratory [facility] [place] [address]Toll Free: [phone] A No. [id number] [facility] Ogahast8775-05-80 21:06:03 Test Item Value Reference Range Interpretation Comments ABO & RH (test code A Positive Performe d at [facility] = 20) Laboratory [facility] Blood [place] [address]Toll Free: [phone] A No. [id number] IAT (test code = Negative Performed a t [facility] 1185) Laboratory [facility] [place] [address]Toll Free: [phone] A No. [id number] [facility] and Screen - ONCE [id number] 21:06:03 Test Item Value Reference Range Interpretation Comments ABO & RH (test code A Positive Performe d at [facility] = 20) Laboratory [facility] Blood [place] [address]Toll Free: [phone] A No. [id number] IAT (test code = Negative Performed a t [facility] 1185) Laboratory [facility] Blood [place] [address]Toll Free: [phone] A No. [id number] [facility] and Screen - ONCE [id number] 21:06:03 Test Item Value Reference Range Interpretation Comments ABO & RH (test code A Positive Performe d at [facility] = 20) Laboratory [facility] [place] [address]Toll Free: [phone] A No. [id number] IAT (test code = Negative Performed a t [facility] 1185) Laboratory [facility] [address] [place], [place] [address]Toll Free: [phone] A No. [id number] [facility] and Screen - ONCE Gezmnft3161-87-97 21:06:03 Test Item Value Reference Range Interpretation Comments ABO & RH (test code A Positive Performe d at [facility] = 20) Laboratory [facility] Blood [place] [address]Toll Free: [phone] A No. [id number] IAT (test code = Negative Performed a t [facility] 1185) Laboratory [facility] [place] [address]Toll Free: [phone] A No. [id number] [facility] and Screen - ONCE Xrthlsc0541-25-01 21:06:03 Test Item Value Reference Range Interpretation Comments ABO & RH (test code A Positive Performe d at [facility] = 20) Laboratory [facility] Blood [place] [address]Toll Free: [phone] A No. [id number] IAT (test code = Negative Performed a t [facility] 1185) Laboratory [facility] [place] [address]Toll Free: [phone] A No. [id number] [facility] and Screen - ONCE [id number] 21:06:03 Test Item Value Reference Range Interpretation Comments ABO & RH (test code A Positive Performe d at [facility] = 20) Laboratory [facility] [address] [place] [address]Uwzq Free: [phone] A No. [id number] IAT (test code = Negative Performed a t [facility] 1185) Laboratory [facility] [address] [place] [address]Kyea Free: [phone] A No. [id number] [facility] and Screen - ONCE [id number] 21:06:03 Test Item Value Reference Range Interpretation Comments ABO & RH (test code A Positive Performe d at [facility] = 20) Laboratory [facility] [address] [place], [place] [address]Toll Free: [phone] A No. [id number] IAT (test code = Negative Performed a t [facility] 1185) Laboratory [facility] [address] [place], [place] [address]Toll Free: [phone] A No. [id number] [facility] Cjkiqwa2998-43-29 21:06:03 Test Item Value Reference Range Interpretation Comments ABO & RH (test code A Positive Performe d at [facility] = 20) Laboratory [facility] Blood [place] [address]Toll Free: [phone] A No. [id number] IAT (test code = Negative Performed a t [facility] 1185) Laboratory [facility] [address] [place], [place] [address]Toll Free: [phone] A No. [id number] [facility] Iisuxoq3075-69-37 21:06:03 Test Item Value Reference Range Interpretation Comments ABO & RH (test code A Positive Performe d at [facility] = 20) Laboratory [facility] [address] [place] [address]Qknn Free: [phone] A No. [id number] IAT (test code = Negative Performed a t [facility] 1185) Laboratory [facility] [address] [place] [address]Qwqq Free: [phone] A No. [id number] [facility] and Screen - ONCE Sjpquxm0677-30-23 21:06:03 Test Item Value Reference Range Interpretation Comments ABO & RH (test code A Positive Performe d at [facility] = 20) Laboratory [facility] [address] [place] [address]Sqyc Free: [phone] A No. [id number] IAT (test code = Negative Performed a t [facility] 1185) Laboratory [facility] [place] [address]Toll Free: [phone] A No. [id number] [facility] Olecobw3169-69-02 21:06:03 Test Item Value Reference Range Interpretation Comments ABO & RH (test code A Positive Performe d at [facility] = 20) Laboratory [facility] Blood [address]Toll Free: [phone] A No. [id number] IAT (test code = Negative Performed a t [facility] 1185) Laboratory [facility] Blood [address]Toll Free: [phone] A No. [id number] [facility] Ikidqza5634-41-04 21:06:03 Test Item Value Reference Range Interpretation Comments ABO & RH (test code A Positive Performe d at [facility] = 20) Laboratory [facility] Blood [place] [address]Toll Free: [phone] A No. [id number] IAT (test code = Negative Performed a t [facility] 1185) Laboratory [facility] [place] [address]Toll Free: [phone] A No. [id number] [facility] (Lab Only)2022-04-04 20:58:06 Test Item Value Reference Range Interpretation Comments ABO & RH (test code A Positive Performe d at [facility] = 20) Laboratory [facility] Blood [address] [address]Gjtu Free: [phone] A No. [id number] [facility] Confirm[facility] (Lab Only)2022-04-04 20:58:06 Test Item Value Reference Range Interpretation Comments ABO & RH (test code A Positive Performe d at [facility] = 20) Laboratory [facility] [address] [place], [place] [address]Toll Free: [phone] A No. [id number] [facility] Confirmation (Lab Only)2022-04-04 20:58:06 Test Item Value Reference Range Interpretation Comments ABO & RH (test code A Positive Performe d at [facility] = 20) Laboratory [facility] [place] [address]Toll Free: [phone] A No. [id number] [facility] Confirmation (Lab Only)2022-04-04 20:58:06 Test Item Value Reference Range Interpretation Comments ABO & RH (test code A Positive Performe d at [facility] = 20) Laboratory [facility] [place] [address]Toll Free: [phone] A No. [id number] [facility] Confirmation (Lab Only)2022-04-04 20:58:06 Test Item Value Reference Range Interpretation Comments ABO & RH (test code A Positive Performe d at [facility] = 20) Laboratory [facility] [place] [address]Toll Free: [phone] A No. [id number] [facility] Confirmation (Lab Only)2022-04-04 20:58:06 Test Item Value Reference Range Interpretation Comments ABO & RH (test code A Positive Performe d at [facility] = 20) Laboratory [facility] [address] [place], [place] [address]Toll Free: [phone] A No. [id number] [facility] Confirmation (Lab Only)2022-04-04 20:58:06 Test Item Value Reference Range Interpretation Comments ABO & RH (test code A Positive Performe d at [facility] = 20) Laboratory [facility] [address] [place], [place] [address]Toll Free: [phone] A No. [id number] [facility] Confirmation (Lab Only)2022-04-04 20:58:06 Test Item Value Reference Range Interpretation Comments ABO & RH (test code A Positive Performe d at [facility] = 20) Laboratory [facility] [place] [address]Toll Free: [phone] A No. [id number] [facility] Confirmation (Lab Only)2022-04-04 20:58:06 Test Item Value Reference Range Interpretation Comments ABO & RH (test code A Positive Performe d at [facility] = 20) Laboratory [facility] Blood [place] [address]Toll Free: [phone] A No. [id number] [facility] Confirmation (Lab Only)2022-04-04 20:58:06 Test Item Value Reference Range Interpretation Comments ABO & RH (test code A Positive Performe d at [facility] = 20) Laboratory [facility] Blood [place] [address]Toll Free: [phone] A No. [id number] [facility] Confirmation (Lab Only)2022-04-04 20:58:06 Test Item Value Reference Range Interpretation Comments ABO & RH (test code A Positive Performe d at [facility] = 20) Laboratory [facility] Blood [place] [address]Toll Free: [phone] A No. [id number] [facility] Confirmation (Lab Only)2022-04-04 20:58:06 Test Item Value Reference Range Interpretation Comments ABO & RH (test code A Positive Performe d at [facility] = 20) Laboratory [facility] Blood [address]Toll Free: [phone] A No. [id number] [facility] Confirmation (Lab Only)2022-04-04 20:58:06 Test Item Value Reference Range Interpretation Comments ABO & RH (test code A Positive Performe d at [facility] = 20) Laboratory [facility] Blood [address] [place], [place] [address]Toll Free: [phone] A No. [id number] [facility] Confirmation (Lab Only)2022-04-04 20:58:06 Test Item Value Reference Range Interpretation Comments ABO & RH (test code A Positive Performe d at [facility] = 20) Laboratory [facility] Blood [place] [address]Toll Free: [phone] A No. [id number] [facility] Confirmation (Lab Only)2022-04-04 20:58:06 Test Item Value Reference Range Interpretation Comments ABO & RH (test code A Positive Performe d at [facility] = 20) Laboratory [facility] Blood [place] [address]Toll Free: [phone] A No. [id number] [facility] Confirmation (Lab Only)2022-04-04 20:58:06 Test Item Value Reference Range Interpretation Comments ABO & RH (test code A Positive Performe d at [facility] = 20) Laboratory [facility] Blood [place] [address]Toll Free: [phone] A No. [id number] [facility] Confirmation (Lab Only)2022-04-04 20:58:06 Test Item Value Reference Range Interpretation Comments ABO & RH (test code A Positive Performe d at [facility] = 20) Laboratory [facility] [address] [place], [place] [address]Toll Free: [phone] A No. [id number] [facility] Confirmation (Lab Only)2022-04-04 20:58:06 Test Item Value Reference Range Interpretation Comments ABO & RH (test code A Positive Performe d at [facility] = 20) Laboratory [facility] [address] [place], [place] [address]Toll Free: [phone] A No. [id number] [facility] Confirmation (Lab Only)2022-04-04 20:58:06 Test Item Value Reference Range Interpretation Comments ABO & RH (test code A Positive Performe d at [facility] = 20) Laboratory [facility] Blood [place] [address]Toll Free: [phone] A No. [id number] [facility] Confirmation (Lab Only)2022-04-04 20:58:06 Test Item Value Reference Range Interpretation Comments ABO & RH (test code A Positive Performe d at [facility] = 20) Laboratory [facility] Blood [place] [address]Toll Free: [phone] A No. [id number] [facility] Confirmation (Lab Only)2022-04-04 20:58:06 Test Item Value Reference Range Interpretation Comments ABO & RH (test code A Positive Performe d at [facility] = 20) Laboratory [facility] Blood [place] [address]Toll Free: [phone] A No. [id number] [facility] Confirmation (Lab Only)2022-04-04 20:58:06 Test Item Value Reference Range Interpretation Comments ABO & RH (test code A Positive Performe d at [facility] = 20) Laboratory [facility] Blood [place] [address]Toll Free: [phone] A No. [id number] [facility] Confirmation (Lab Only)2022-04-04 20:58:06 Test Item Value Reference Range Interpretation Comments ABO & RH (test code A Positive Performe d at [facility] = 20) Laboratory [facility] Blood [place] [id number] Free: [phone] A No. [id number] [facility] Confirmation (Lab Only)2022-04-04 20:58:06 Test Item Value Reference Range Interpretation Comments ABO & RH (test code A Positive Performe d at [facility] = 20) Laboratory [facility] Blood Bank[address] [place] [address]Zfet Free: [phone] A No. [id number] [facility] [id number] 19:40:46 Test Item Value Reference Range Interpretation Comments PREG SERUM (test code Negative = 4483534508) MEDHAT (test code = MEDHAT) Less than 10 IU/L. ?If low titer or ectopic is suspected, resubmit specimen in 48-72 hours. [facility], [id number] 19:40:46 Test Item Value Reference Range Interpretation Comments PREG SERUM (test code Negative = 7661142684) MEDHAT (test code = MEDHAT) Less than 10 IU/L. ?If low titer or ectopic is suspected, resubmit specimen in 48-72 hours. [facility], [id number] 19:40:46 Test Item Value Reference Range Interpretation Comments PREG SERUM (test code Negative = 5340777401) MEDHAT (test code = MEDHAT) Less than 10 IU/L. ?If low titer or ectopic is suspected, resubmit specimen in 48-72 hours. [facility], [id number] 19:40:46 Test Item Value Reference Range Interpretation Comments PREG SERUM (test code Negative = 5512182678) MEDHAT (test code = MEDHAT) Less than 10 IU/L. ?If low titer or ectopic is suspected, resubmit specimen in 48-72 hours. [facility], [id number] 19:40:46 Test Item Value Reference Range Interpretation Comments PREG SERUM (test code Negative = 3950555421) MEDHAT (test code = MEDHAT) Less than 10 IU/L. ?If low titer or ectopic is suspected, resubmit specimen in 48-72 hours. [facility], [id number] 19:40:46 Test Item Value Reference Range Interpretation Comments PREG SERUM (test code Negative = 6028967844) MEDHAT (test code = MEDHAT) Less than 10 IU/L. ?If low titer or ectopic is suspected, resubmit specimen in 48-72 hours. [facility] [id number] 19:40:46 Test Item Value Reference Range Interpretation Comments PREG SERUM (test code Negative = 7304329975) MEDHAT (test code = MEDHAT) Less than 10 IU/L. ?If low titer or ectopic is suspected, resubmit specimen in 48-72 hours. [facility], [id number] 19:40:46 Test Item Value Reference Range Interpretation Comments PREG SERUM (test code Negative = 0579800813) MEDHAT (test code = MEDHAT) Less than 10 IU/L. ?If low titer or ectopic is suspected, resubmit specimen in 48-72 hours. [facility], [id number] 19:40:46 Test Item Value Reference Range Interpretation Comments PREG SERUM (test code Negative = 0227967591) MEDHAT (test code = MEDHAT) Less than 10 IU/L. ?If low titer or ectopic is suspected, resubmit specimen in 48-72 hours. [facility] [id number] 19:40:46 Test Item Value Reference Range Interpretation Comments PREG SERUM (test code Negative = 1280848583) MEDHAT (test code = MEDHAT) Less than 10 IU/L. ?If low titer or ectopic is suspected, resubmit specimen in 48-72 hours. [facility], [id number] 19:40:46 Test Item Value Reference Range Interpretation Comments PREG SERUM (test code Negative = 9085087822) MEDHAT (test code = MEDHAT) Less than 10 IU/L. ?If low titer or ectopic is suspected, resubmit specimen in 48-72 hours. [facility], [id number] 19:40:46 Test Item Value Reference Range Interpretation Comments PREG SERUM (test code Negative = 4395514970) MEDHAT (test code = MEDHAT) Less than 10 IU/L. ?If low titer or ectopic is suspected, resubmit specimen in 48-72 hours. [facility], [id number] 19:40:46 Test Item Value Reference Range Interpretation Comments PREG SERUM (test code Negative = 4597177767) MEDHAT (test code = MEDHAT) Less than 10 IU/L. ?If low titer or ectopic is suspected, resubmit specimen in 48-72 hours. [facility] [id number] 19:40:46 Test Item Value Reference Range Interpretation Comments PREG SERUM (test code Negative = 5173098621) MEDHAT (test code = MEDHAT) Less than 10 IU/L. ?If low titer or ectopic is suspected, resubmit specimen in 48-72 hours. [facility], [id number] 19:40:46 Test Item Value Reference Range Interpretation Comments PREG SERUM (test code Negative = 8488342159) MEDHAT (test code = MEDHAT) Less than 10 IU/L. ?If low titer or ectopic is suspected, resubmit specimen in 48-72 hours. [facility], [id number] 19:40:46 Test Item Value Reference Range Interpretation Comments PREG SERUM (test code Negative = 0324590319) MEDHAT (test code = MEDHAT) Less than 10 IU/L. ?If low titer or ectopic is suspected, resubmit specimen in 48-72 hours. [facility], [id number] 19:40:46 Test Item Value Reference Range Interpretation Comments PREG SERUM (test code Negative = 8348883784) MEDHAT (test code = MEDHAT) Less than 10 IU/L. ?If low titer or ectopic is suspected, resubmit specimen in 48-72 hours. [facility], [id number] 19:40:46 Test Item Value Reference Range Interpretation Comments PREG SERUM (test code Negative = 9305076527) MEDHAT (test code = MEDHAT) Less than 10 IU/L. ?If low titer or ectopic is suspected, resubmit specimen in 48-72 hours. [facility], [id number] 19:40:46 Test Item Value Reference Range Interpretation Comments PREG SERUM (test code Negative = 3261319034) MEDHAT (test code = MEDHAT) Less than 10 IU/L. ?If low titer or ectopic is suspected, resubmit specimen in 48-72 hours. [facility], [id number] 19:40:46 Test Item Value Reference Range Interpretation Comments PREG SERUM (test code Negative = 7071186045) MEDHAT (test code = MEDHAT) Less than 10 IU/L. ?If low titer or ectopic is suspected, resubmit specimen in 48-72 hours. [facility], [id number] 19:40:46 Test Item Value Reference Range Interpretation Comments PREG SERUM (test code Negative = 1125964025) MEDHAT (test code = MEDHAT) Less than 10 IU/L. ?If low titer or ectopic is suspected, resubmit specimen in 48-72 hours. [facility], [id number] 19:40:46 Test Item Value Reference Range Interpretation Comments PREG SERUM (test code Negative = 8369117566) MEDHAT (test code = MEDHAT) Less than 10 IU/L. ?If low titer or ectopic is suspected, resubmit specimen in 48-72 hours. [facility], [id number] 19:40:46 Test Item Value Reference Range Interpretation Comments PREG SERUM (test code Negative = 4625444788) MEDHAT (test code = MEDHAT) Less than 10 IU/L. ?If low titer or ectopic is suspected, resubmit specimen in 48-72 hours. [facility], [id number] 19:40:46 Test Item Value Reference Range Interpretation Comments PREG SERUM (test code Negative = 3762146513) MEDHAT (test code = MEDHAT) Less than 10 IU/L. ?If low titer or ectopic is suspected, resubmit specimen in 48-72 hours. [facility] WITH [id number] 18:55:21 Test Item Value Reference Range Interpretation Comments WBC (test code = See_Comment H [Automated 4222-2) message] The system which generated this result transmit gómez reference range : 4.30 - 11.10 10*3/?L. The reference range was not used to interpret this result as normal/abnormal . RBC (test code = See_Comment [Automated 732-6) message] The system which generated this result [...] RDW-SD (test code = 43.0 fL 39-49.9 05243-4) RDW-CV (test code = 13.2 % 12-15.5 788-0) PLT (test code = See_Comment [Automated 777-3) message] The system which generated this result transmit gómez reference range : 166 - 358 10*3/ ?L. The reference range was not u sed to interpret th is result as normal/abnormal . MPV (test code = 10.8 fL 9.5-12.9 34399-3) NRBC/100 WBC (test See_Comment [Automat ed code = 6239138596) message] The system which generated this result transmit gómez reference range : 0.0 - 10.0 /100 WBCs. The reference range was not used to interpret this result as normal/abnormal . NRBC x10^3 (test code See_Comment [Auto mated = 8075956362) message] The system which generated this result transmit gómez reference range : 10*3/?L. The reference range was not used to interpret this result as normal/abnormal . GRAN MAT (NEUT) % 82.1 % (test code = 770-8) IMM GRAN % (test code 0.60 % = 9174274155) LYMPH % (test code = 12.4 % 736-9) MONO % (test code = 4.3 % 5905-5) EOS % (test code = 0.1 % 713-8) BASO % (test code = 0.5 % 706-2) GRAN MAT x10^3(ANC) 10.62 10*3/uL 1.88-7.09 H (test code = 6042722407) IMM GRAN x10^3 (test 0.08 10*3/uL 0-0.06 H code = 7144003766) LYMPH x10^3 (test code 1.60 10*3/uL 1.32-3.29 = 731-0) MONO x10^3 (test code 0.56 10*3/uL 0.33-0.92 = 742-7) EOS x10^3 (test code = 0.03-0.39 L 711-2) BASO x10^3 (test code 0.06 10*3/uL 0.01-0.07 = 704-7) Lab Interpretation Abnormal (test code = 64386-9) [facility]. METABOLIC PANEL (42027)2022-04-04 18:55:21 Test Item Value Reference Range Interpretation Comments NA (test code = 141 mmol/L 135-145 9757692691) K (test code = 4.5 mmol/L 3.5-5 5672880603) CL (test code = 103 mmol/L 98-108 2950308073) CO2 TOTAL (test code = 27 mmol/L 23-31 6205053066) AGAP (test code = 2-16 7889599892) BUN (test code = 14 mg/dL 7-23 1425344964) GLUCOSE (test code = 115 mg/dL 70-110 H 0109913492) CREATININE (test code = 0.62 mg/dL 0.5-1.04 0496938714) TOTAL BILI (test code = 0.7 mg/dL 0.1-1.8 5205493213) CALCIUM (test code = 9.5 mg/dL 8.6-10.6 0089032897) T PROTEIN (test code = 7.3 g/dL 6.3-8.2 1522317095) ALBUMIN (test code = 4.7 g/dL 3.5-5 6678868046) ALK PHOS (test code = 65 U/L 34-122 2210733194) ALTv (test code = 22 U/L 5-35 1742-6) AST(SGOT) (test code = 39 U/L 13-40 4187947618) eGFR (test code = mL/min/1.73m2 9780717372) MEDHAT (test code = MEDHAT) Association of [...] tests). Lab Interpretation Abnormal (test code = 18930-7) [facility]55:21 Test Item Value Reference Range Interpretation Comments LIPASE (test code = 2326108224) 70 U/L 0-220 Lab Interpretation (test code = Normal 59087-3) [facility] 18:55:21 Test Item Value Reference Range Interpretation Comments LIPASE (test code = 0635168307) 70 U/L 0-220 Lab Interpretation (test code = Normal 60165-7) [facility]OL[facility] (71775)2022-04-04 18:55:21 Test Item Value Reference Range Interpretation Comments NA (test code = 141 mmol/L 135-145 4822618411) K (test code = 4.5 mmol/L 3.5-5 3679245741) CL (test code = 103 mmol/L 98-108 2540080719) CO2 TOTAL (test code = 27 mmol/L 23-31 5299243963) AGAP (test code = 2-16 2430955041) BUN (test code = 14 mg/dL 7-23 2550285087) GLUCOSE (test code = 115 mg/dL 70-110 H 6790802543) CREATININE (test code = 0.62 mg/dL 0.5-1.04 4255697894) TOTAL BILI (test code = 0.7 mg/dL 0.1-1.7 6770532017) CALCIUM (test code = 9.5 mg/dL 8.6-10.6 6354563783) T PROTEIN (test code = 7.3 g/dL 6.3-8.2 6895608747) ALBUMIN (test code = 4.7 g/dL 3.5-5 0423678757) ALK PHOS (test code = 65 U/L 34-122 4160821473) ALTv (test code = 22 U/L 5-35 2-6) AST(SGOT) (test code = 39 U/L 13-40 4564601850) eGFR (test code = mL/min/1.73m2 2020725597) MEDHAT (test code = MEDHAT) Association of [...] tests). Lab Interpretation Abnormal (test code = 00496-3) [address]10-03 18:55:21 Test Item Value Reference Range Interpretation Comments LIPASE (test code = 3886971912) 70 U/L 0-220 Lab Interpretation (test code = Normal 51237-2) [address]10-03 18:55:21 Test Item Value Reference Range Interpretation Comments LIPASE (test code = 4661963576) 70 U/L 0-220 Lab Interpretation (test code = Normal 82599-8) [address]10-03 18:55:21 Test Item Value Reference Range Interpretation Comments LIPASE (test code = 1219579087) 70 U/L 0-220 Lab Interpretation (test code = Normal 21371-3) [address]10-03 18:55:21 Test Item Value Reference Range Interpretation Comments LIPASE (test code = 0994755480) 70 U/L 0-220 Lab Interpretation (test code = Normal 82397-9) [address]10-03 18:55:21 Test Item Value Reference Range Interpretation Comments LIPASE (test code = 5048029776) 70 U/L 0-220 Lab Interpretation (test code = Normal 57470-9) [address]10-03 18:55:21 Test Item Value Reference Range Interpretation Comments LIPASE (test code = 3413038194) 70 U/L 0-220 Lab Interpretation (test code = Normal 17621-3) [address]10-03 18:55:21 Test Item Value Reference Range Interpretation Comments LIPASE (test code = 7181830370) 70 U/L 0-220 Lab Interpretation (test code = Normal 84262-6) [address]10-03 18:55:21 Test Item Value Reference Range Interpretation Comments LIPASE (test code = 5694933436) 70 U/L 0-220 Lab Interpretation (test code = Normal 04158-3) [address]10-03 18:55:21 Test Item Value Reference Range Interpretation Comments LIPASE (test code = 0113150329) 70 U/L 0-220 Lab Interpretation (test code = Normal 94640-0) [address]10-03 18:55:21 Test Item Value Reference Range Interpretation Comments LIPASE (test code = 5579665015) 70 U/L 0-220 Lab Interpretation (test code = Normal 27569-7) [address]10-03 18:55:21 Test Item Value Reference Range Interpretation Comments LIPASE (test code = 9822152012) 70 U/L 0-220 Lab Interpretation (test code = Normal 81309-7) [address]10-03 18:55:21 Test Item Value Reference Range Interpretation Comments LIPASE (test code = 5113243040) 70 U/L 0-220 Lab Interpretation (test code = Normal 89700-4) [address]10-03 18:55:21 Test Item Value Reference Range Interpretation Comments LIPASE (test code = 4384349285) 70 U/L 0-220 Lab Interpretation (test code = Normal 27935-5) [address]10-03 18:55:21 Test Item Value Reference Range Interpretation Comments LIPASE (test code = 4950874729) 70 U/L 0-220 Lab Interpretation (test code = Normal 80377-6) [address]10-03 18:55:21 Test Item Value Reference Range Interpretation Comments LIPASE (test code = 3586195156) 70 U/L 0-220 Lab Interpretation (test code = Normal 47350-3) [address]10-03 18:55:21 Test Item Value Reference Range Interpretation Comments LIPASE (test code = 7939846803) 70 U/L 0-220 Lab Interpretation (test code = Normal 39150-2) [address]10-03 18:55:21 Test Item Value Reference Range Interpretation Comments LIPASE (test code = 9852237813) 70 U/L 0-220 Lab Interpretation (test code = Normal 69197-4) [address]10-03 18:55:21 Test Item Value Reference Range Interpretation Comments LIPASE (test code = 4842126411) 70 U/L 0-220 Lab Interpretation (test code = Normal 40941-5) [facility] Test Item Value Reference Range Interpretation Comments LIPASE (test code = 1130026644) 70 U/L 0-220 Lab Interpretation (test code = Normal 08782-8) [facility] 18:55:21 Test Item Value Reference Range Interpretation Comments LIPASE (test code = 7448876485) 70 U/L 0-220 Lab Interpretation (test code = Normal 28473-8) [facility] 18:55:21 Test Item Value Reference Range Interpretation Comments LIPASE (test code = 5019134016) 70 U/L 0-220 Lab Interpretation (test code = Normal 21975-2) [facility] 18:55:21 Test Item Value Reference Range Interpretation Comments LIPASE (test code = 4860037825) 70 U/L 0-220 Lab Interpretation (test code = Normal 01565-2) [facility] (65034)2022-04-01 04:58:46 Test Item Value Reference Range Interpretation Comments NA (test code = 139 mmol/L 135-145 7849209996) K (test code = 5.0 mmol/L 3.5-5 0686506818) CL (test code = 102 mmol/L 98-108 0999081584) CO2 TOTAL (test code 27 mmol/L 23-31 = 4744651205) AGAP (test code = 2-16 2968665706) BUN (test code = 13 mg/dL 7-23 3467495218) GLUCOSE (test code = 104 mg/dL 70-110 4978438198) CREATININE (test code 0.69 mg/dL 0.5-1.04 = 3798472316) TOTAL BILI (test code 0.5 mg/dL 0.1-1.1 = 2171779091) CALCIUM (test code = 9.6 mg/dL 8.6-10.6 8111992994) T PROTEIN (test code 7.2 g/dL 6.3-8.2 = 3909042772) ALBUMIN (test code = 4.6 g/dL 3.5-5 6813724616) ALK PHOS (test code = 60 U/L 34-122 5958556515) ALTv (test code = 15 U/L 5-35 1742-6) AST(SGOT) (test code 26 U/L 13-40 = 9612435579) eGFR (test code = mL/min/1.73m2 5039909744) MEDHAT (test code = MEDHAT) Association of [...] or urine or abnormalities in imaging tests). [facility] 04:58:25 Test Item Value Reference Range Interpretation Comments LIPASE (test code = 2945475442) 71 U/L 0-220 Lab Interpretation (test code = Normal 18735-4) [facility] WITH [id number] 04:46:42 Test Item Value Reference Range Interpretation Comments WBC (test code = See_Comment [Automated message] 6690-2) The system [employer] generated this result transmitted ref erence range: 4.30 - 1 1.10 10*3/?L. The re ference range was not u sed to interpret this result as normal/abnor mal. RBC (test code = See_Comment [Automated message] 789-8) The system [employer] generated this result transmitted ref erence range: [...] RDW-SD (test code 42.5 fL 39-49.9 = 21120-2) RDW-CV (test code 13.2 % 12-15.5 = 788-0) PLT (test code = See_Comment [Automated message] 777-3) The system [employer] generated this result transmitted ref erence range: 166 - 35 8 10*3/?L. The re ference range was not u sed to interpret this result as normal/abnor mal. MPV (test code = 10.4 fL 9.5-12.9 45395-5) NRBC/100 WBC (test See_Comment [Automat ed message] code = 6844622594) The [employer] which generated this result transmitted ref erence range: 0.0 - 10 .0 /100 WBCs. The refer ence range was not u sed to interpret this result as normal/abnor mal. NRBC x10^3 (test See_Comment [Automated message] code = 5054940970) The syste m which generated this result transmitted ref erence range: 10*3/?L. The reference range was not used to interpr et this result as normal/abnormal . GRAN MAT (NEUT) % 69.5 % (test code = 770-8) IMM GRAN % (test 0.40 % code = 0355099855) LYMPH % (test code 23.3 % = 736-9) MONO % (test code 5.3 % = 5905-5) EOS % (test code = 0.7 % 713-8) BASO % (test code 0.8 % = 706-2) GRAN MAT 5.73 10*3/uL 1.88-7.09 x10^3(ANC) (test code = 0170653993) IMM GRAN x10^3 0.03 10*3/uL 0-0.06 (test code = 5498526098) LYMPH x10^3 (test 1.92 10*3/uL 1.32-3.29 code = 731-0) MONO x10^3 (test 0.44 10*3/uL 0.33-0.92 code = 742-7) EOS x10^3 (test 0.06 10*3/uL 0.03-0.39 code = 711-2) BASO x10^3 (test 0.07 10*3/uL 0.01-0.07 code = 704-7) [facility] [id number] 04:37:00 Test Item Value Reference Range Interpretation Comments POCT PREG (test code = 1605) negative Lab Interpretation (test code = Normal 16497-9) [facility] [id number] 04:37:00 Test Item Value Reference Range Interpretation Comments POCT PREG (test code = 1605) negative Lab Interpretation (test code = Normal 68168-9) [facility], [id number] 14:05:00 Test Item Value Reference Range Interpretation Comments Coronavirus NAAT, COVD19 SARS results, (test code = including Patient [id number]) Name, or MRN, were Coronavirus NAAT, COVD19 ical-devices/emergenc (test code = o-cgs-qraydjtmdmlmfc. [id number]) SARS-CoV-2 NAAT Result: Positive by RT-PCR A (test code = SARS-CoV-2 NAAT Result:) COVID-19 Status: AsymptomaticHCG, Urine Qual (LAB)2021-07-09 14:05:00 Test Item Value Reference Range Interpretation Comments HCG, Urine, Qual (test code = HCGU) Negative Negative Drug Screen,[id number] 14:05:00 Test Item Value Reference Range Interpretation [...] Negative code = UPROP) UA, Urinalysis w [id number] 14:05:00 Test Item Value Reference Range Interpretation Comments Color,Urine (test code = Yellow Yellow UCOL) Clarity,Urine (test code = Clear Clear UCLAR) Ph, Urine (test code = UPH) 8.5 5.0-8.0 H Specific [place],Urine 1.020 1.005-1.030 N (test code = USG) [...] Seen A UBACT) Complete Blood Count Auto [id number] 13:20:00 Test Item Value Reference Range Interpretation [...] code = NRBCP) 0 % Comprehensive Metabolic [id number] 13:20:00 Test Item Value Reference Range Interpretation [...] 72 U/L 46-116 N = ALP) Ethanol [id number] 13:20:00 Test Item Value Reference Range Interpretation [...] = HCGU) Negative Negative UA, Urinalysis Rflx Cult/[id number] 00:20:00 Test Item Value Reference Range Interpretation Comments Color,Urine (test code = Yellow Yellow UCOL) Clarity,Urine (test code = Clear Clear UCLAR) PH,Urine (test code = 7.5 5.5-8.5 UPH.XX) Specific [place],Urine 1.020 1.005-1.030 N (test code = USG) [...] cells/uL Negative (test code = ULEU) Urine [id number] 00:20:00 Test Item Value Reference Range Interpretation Comments RBC,Urine (test code = URBC.XX) 0-5 /HPF None Seen WBC,Urine (test code = UWBC.XX) 6-10 /HPF None Seen A Squamous Epithelial Cell,Urine 74-200 /HPF None Seen A (test code = USQEPI.XX) Bacteria,Urine (test code = Moderate /HPF None Seen A UBACT) Drug Screen,[id number] 00:20:00 Test Item Value Reference Range Interpretation [...] code = UPROP) Complete Blood Count Auto [id number] 00:09:00 Test Item Value Reference Range Interpretation [...] code = NRBCP) 0 % Comprehensive Metabolic [id number] 00:09:00 Test Item Value Reference Range Interpretation [...] 83 U/L 46-116 N = ALP) Ethanol [id number] 00:09:00 Test Item Value Reference Range Interpretation Comments Ethanol (test code < 3 mg/dL The pharm acological = ETOH) response to blo od alcohol levels mayvary from individual to i ndividual. The fatal ezio ntrationhas been reported t o be >400mg/dL. Coronavirus PCR, COVID19 [id number] 00:08:00 Test Item Value Reference Range Interpretation Comments Coronavirus PCR, For use under Emergency COVID19 Rapid (test Use Authorization (EUA) code = SARSCOV2) only. Coronavirus PCR, Reference Range: COVID19 Rapid (test Negative code = WUMUVHZ75.1) SARS-CoV-2 PCR Result: Negative by RT-PCR (test code = SARS-CoV-2 PCR Result:) COVID-19 Status: AsymptomaticCARBAMAZEPHINE (TEGRETOL)2020-09-26 08:42:00 Test Item Value Reference Range Interpretation Comments CARBAMAZPN (test code = 98A) 19.3 ug/mL 4.0-12.0 HH CARBAMAZEPHINE (TEGRETOL)2020-09-26 05:04:00 Test Item Value Reference Range Interpretation Comments CARBAMAZPN (test code = 98A) 20.1 ug/mL 4.0-12.0 HH URINALYSIS WITH [id number] 02:45:00 Test Item Value Reference Range Interpretation [...] code = USPERM) /HPF NONE DRUGS OF [id number] 02:43:00 Test Item Value Reference Range Interpretation [...] the FDA and the [employer] [place] [employer] (CAP) are more stringent than those required for this test. Therefore, the result should be interpreted with caution and close attention to other clinical and epidemiological data PRO TIME AND [id number] 00:51:00 Test Item Value Reference Range Interpretation [...] Heparin. Order Code is ANTI-XA COMPREHENSIVE METABOLIC [id number] 00:47:00 Test Item Value Reference Range Interpretation [...] as normal/abnormal . GFR 154 See_Comment [Automated NEPALESE (test mL/min/1.73m\\S\\2 message] The code = GFRAA) [...] to interpret this result as normal/abnormal . [id number] 00:47:00 Test Item Value Reference Range Interpretation Comments ACETAMINPH (test code = 94M) 3.6 ug/mL 10.0-30.0 L CARDIAC [id number] 00:47:00 Test Item Value Reference Range Interpretation Comments TROPONIN I (test code = A84) <0.015 ng/mL 0.000-0.045 ALCOHOL BLOOD (ETOH)2020-09-26 00:44:00 Test Item Value Reference Range Interpretation Comments ETOH (test code = ETHANOL HALC) The result is to be used only for medical purposes ALCOHOL (test <10 mg/dL See_Comment [Automated me ssage] code = 56A) The system Zeel generated this result transmit gómez reference range : <=10. The refer ence range was not u sed to interpret th is result as normal/abnormal . [id number] 00:42:00 Test Item Value Reference Range Interpretation Comments SALICYLATE (test code = 94B) <1.7 mg/dL 2.8-20.0 L SERUM [id number] 00:38:00 Test Item Value Reference Range Interpretation [...]
--- NOTE | 2022-07-04 02:56 | ER ---
Nurse's Notes [facility] Name: Vanda Pompa Age: 22 yrs Sex: Female : 2000 Arrival Date: 07/04/2022 Time: 00:17 Bed 11 Private MD: Diagnosis: Poisoning by 4-Aminophenol derivatives, accidental (unintentional), initial encounter;Vomiting Presentation: 07/04 00:40 Chief complaint: Patient states: she took several tylenol #3 in an attempt to get high bb but then started feeling light-headed, dizzy, and nauseated. Coronavirus screen: At this time, the client does not indicate any symptoms associated with coronavirus-19. Ebola Screen: No symptoms or risks identified at this time. Initial Sepsis Screen: Does the patient meet any 2 criteria? No. Patient's initial sepsis screen is negative. Does the patient have a suspected source of infection? No. Patient's initial sepsis screen is negative. Risk Assessment: Do you want to hurt yourself or someone else? Patient reports no desire to harm self or others. Onset of symptoms was July 04, 2022. 00:40 Method Of Arrival: EMS bb 00:40 Acuity: FREDY 3 bb Triage Assessment: 00:41 General: Appears in no apparent distress. Behavior is calm, cooperative. Pain: Denies bb pain. EENT: Reports left ear is red and feels hot. Denies pain in left ear. Neuro: Level of Consciousness is awake, alert, obeys commands, Oriented to person, place, time, situation. Cardiovascular: Capillary refill < 3 seconds Patient's skin is warm and dry. Respiratory: Respiratory effort is unlabored. GI: No signs and/or symptoms were reported involving the gastrointestinal system. Derm: Skin is pink, warm \T\ dry. left ear reddened. Musculoskeletal: Circulation, motion, and sensation intact. PHYSICIAN IN PRIVATE PRACTICE: 00:41 LMP 06/26/2022 bb Historical: - Allergies: 00:41 No Known Allergies; bb - Home Meds: 00:41 Lamictal Oral [Active]; Abilify oral [Active]; Strattera Oral [Active]; bb - PMHx: 00:41 adhd; Anxiety; Asthma; Bipolar disorder; depressive disorder; bb - PSHx: 00:41 ear surgery; bb - Immunization history:: Adult Immunizations up to date. - Social history:: Smoking status: Patient denies any tobacco usage or history of. Screenin:19 [facility] ED Fall Risk Assessment (Adult) History of falling in the last 3 months, bb including since admission No falls in past 3 months (0 pts). Abuse screen: Denies threats or abuse. Nutritional screening: No deficits noted. Tuberculosis screening: No symptoms or risk factors identified. Assessment: 02:45 Reassessment: No changes from previously documented assessment. Patient is alert, bb oriented x 3, equal unlabored respirations, skin warm/dry/pink. 04:18 Reassessment: Patient is alert, oriented x 3, equal unlabored respirations, skin bb warm/dry/pink. pt verbalized understanding of and agree to plan of care discharge instructions given pt has no ride home will wait in ED for morning. Vital Signs: 00:40 BP 119 / 79; Pulse 88; Resp 16 S; Temp 98.8(O); Pulse Ox 100% on R/A; Weight 54.43 kg bb (R); Height 5 ft. 3 in. (160.02 cm); 04:19 BP 99 / 66; Pulse 81; Resp 16 S; Temp 98.1(O); Pulse Ox 99% on R/A; bb 00:40 Body Mass Index 21.26 (54.43 kg, 160.02 cm) bb ED Course: 00:17 Patient arrived in ED. mw2 00:41 Triage completed. bb 00:41 Arm band placed on Patient placed in waiting room, Patient notified of wait time. bb 01:08 Dick Fields MD is Attending Physician. uzma 02:51 Kris Medina MD is Referral Physician. uzma 04:19 Patient has correct armband on for positive identification. bb 04:19 No provider procedures requiring assistance completed. Patient did not have IV access bb during this emergency room visit. Administered Medications: 03:27 CANCELLED (Physician Discretion): NS 0.9% 1000 ml IV at 1 bolus Per protocol; 1000 mL bb bolus Medication: 04:20 VIS not applicable for this client. bb Outcome: 02:56 Discharge ordered by . uzma 04:19 Discharged to home bb 04:19 Condition: stable 04:19 Discharge instructions given to patient, Instructed on discharge instructions, follow up and referral plans. medication usage, Demonstrated understanding of instructions, follow-up care, medications, Prescriptions given X 1. 04:20 Patient left the ED. bb Signatures: Dick Fields MD MD cha Ballard, Brenda RN RN Jay Barrett mw2 Corrections: (The following items were deleted from the chart) 00:43 00:41 PMHx: depressive disorder; edna bishop
--- NOTE | 2022-07-04 02:56 | EDPHYS ---
Physician Documentation [facility] Name: Vanda Pompa Age: 22 yrs Sex: Female : 2000 Arrival Date: 07/04/2022 Time: 00:17 Bed 11 Private MD: MEDARDO Physician Dick Fields HPI: 07/04 02:46 This 22 yrs old Female presents to ER via EMS with complaints of SICK AFTER 6 uzma T#3. 02:46 This 22 yrs old Female presents to ER via EMS with complaints of od, to get uzma high, not suicidal. 02:46 The patient presents to the emergency department with nausea, vomiting. Onset: The uzma symptoms/episode began/occurred just prior to arrival. Possible causes: T#3. The symptoms are aggravated by nothing. The symptoms are alleviated by nothing. Associated signs and symptoms: The patient has no apparent associated signs or symptoms. Severity of symptoms: At their worst the symptoms were mild in the emergency department the symptoms have resolved. The patient has experienced similar episodes in the past, several times. 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 - Social history:: Smoking status: Patient denies any tobacco usage or history of. ROS: 02:48 Constitutional: Negative for fever, chills, and weight loss, Eyes: Negative for injury, uzma pain, redness, and discharge, ENT: Negative for injury, pain, and discharge, Neck: Negative for injury, pain, and swelling, Cardiovascular: Negative for chest pain, palpitations, and edema, Respiratory: Negative for shortness of breath, cough, wheezing, and pleuritic chest pain, Back: Negative for injury and pain, : Negative for injury, bleeding, discharge, and swelling, MS/Extremity: Negative for injury and deformity, Skin: Negative for injury, rash, and discoloration, Neuro: Negative for headache, weakness, numbness, tingling, and seizure, Psych: Negative for depression, anxiety, suicide ideation, homicidal ideation, and hallucinations, Allergy/Immunology: Negative for hives, rash, and allergies, Endocrine: Negative for neck swelling, polydipsia, polyuria, polyphagia, and marked weight changes, Hematologic/Lymphatic: Negative for swollen nodes, abnormal bleeding, and unusual bruising. 02:48 Abdomen/GI: Positive for nausea and vomiting. Exam: 02:48 Constitutional: This is a well developed, well nourished patient who is awake, alert, uzma and in no acute distress. Head/Face: Normocephalic, atraumatic. Eyes: Pupils equal round and reactive to light, extra-ocular motions intact. Lids and lashes normal. Conjunctiva and sclera are non-icteric and not injected. Cornea within normal limits. Periorbital areas with no swelling, redness, or edema. ENT: Nares patent. No nasal discharge, no septal abnormalities noted. Tympanic membranes are normal and external auditory canals are clear. Oropharynx with no redness, swelling, or masses, exudates, or evidence of obstruction, uvula midline. Mucous membranes moist. Neck: Trachea midline, no thyromegaly or masses palpated, and no cervical lymphadenopathy. Supple, full range of motion without nuchal rigidity, or vertebral point tenderness. No Meningismus. Chest/axilla: Normal chest wall appearance and motion. Nontender with no deformity. No lesions are appreciated. Cardiovascular: Regular rate and rhythm with a normal S1 and S2. No gallops, murmurs, or rubs. Normal PMI, no JVD. No pulse deficits. Respiratory: Lungs have equal breath sounds bilaterally, clear to auscultation and percussion. No rales, rhonchi or wheezes noted. No increased work of breathing, no retractions or nasal flaring. Abdomen/GI: Soft, non-tender, with normal bowel sounds. No distension or tympany. No guarding or rebound. No evidence of tenderness throughout. Back: No spinal tenderness. No costovertebral tenderness. Full range of motion. Skin: Warm, dry with normal turgor. Normal color with no rashes, no lesions, and no evidence of cellulitis. MS/ Extremity: Pulses equal, no cyanosis. Neurovascular intact. Full, normal range of motion. Neuro: Awake and alert, GCS 15, oriented to person, place, time, and situation. Cranial nerves II-XII grossly intact. Motor strength 5/5 in all extremities. Sensory grossly intact. Cerebellar exam normal. Normal gait. 02:58 ECG was reviewed by the Attending Physician. [facility] Vital Signs: 00:40 BP 119 / 79; Pulse 88; Resp 16 S; Temp 98.8(O); Pulse Ox 100% on R/A; Weight 54.43 kg bb (R); Height 5 ft. 3 in. (160.02 cm); 04:19 BP 99 / 66; Pulse 81; Resp 16 S; Temp 98.1(O); Pulse Ox 99% on R/A; bb 00:40 Body Mass Index 21.26 (54.43 kg, 160.02 cm) bb MDM: 01:08 Patient medically screened. [facility] 02:50 Differential diagnosis: polypharmacy, over medication, Nonspecific abd pain, gastritis, uzma viral gastroenteritis, gastroenteritis. Data reviewed: vital signs, nurses notes. 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 Test interpretation: by ED physician or midlevel provider: ECG, plain radiologic studies. Counseling: I had a detailed discussion with the patient and/or guardian regarding: the historical points, exam findings, and any diagnostic results supporting the discharge/admit diagnosis, lab results, radiology results, the need for outpatient follow up. 07/04 01:09 Order name: Acetaminophen; Complete Time: 04:04 [facility] 07/04 01:09 Order name: Basic Metabolic Panel; Complete Time: 04:04 [facility] 07/04 01:09 Order name: CBC with Diff; Complete Time: 04:04 [facility] 07/04 01:09 Order name: ETOH Level; Complete Time: 04:04 [facility] 07/04 01:09 Order name: Hepatic Function; Complete Time: 04:04 [facility] 07/04 01:09 Order name: PT-INR; Complete Time: 04:04 [facility] 07/04 01:09 Order name: Ptt, Activated; Complete Time: 04:04 [facility] 07/04 01:09 Order name: EKG; Complete Time: 01:09 [facility] 07/04 01:09 Order name: EKG - Nurse/Tech; Complete Time: 02:24 [facility] 07/04 01:09 Order name: IV Saline Lock [facility] 07/04 01:09 Order name: Labs collected and sent; Complete Time: 03:10 [facility] 07/04 01:09 Order name: Suicide Screening (Jacob) [facility] 07/04 01:09 Order name: Urine Dipstick-Ancillary (obtain specimen) [facility] 07/04 01:09 Order name: Urine Test (obtain specimen) [facility] EC:58 Rate is 67 beats/min. Rhythm is regular. QRS [place] is Normal. LA interval is shortened [facility] at 94 msec. QRS interval is normal. QT interval is normal. No Q waves. T waves are Normal. No ST changes noted. Clinical impression: NSR w/ Non-specific ST/T Changes and No evidence of ischemia. Interpreted by me. Reviewed by me. Administered Medications: 03:27 CANCELLED (Physician Discretion): NS 0.9% 1000 ml IV at 1 bolus Per protocol; 1000 mL bb bolus Disposition Summary: 07/04/22 02:56 Discharge Ordered Location: Home uzma Problem: new uzma Symptoms: have improved uzma Condition: Stable uzma Diagnosis - Poisoning by 4-Aminophenol derivatives, accidental (unintentional), initial uzma encounter - Vomiting uzma Followup: uzma - With: Private Physician - When: 2 - 3 days - Reason: Recheck today's complaints, Continuance of care, Re-evaluation by your physician Followup: uzma - With: Kris Medina MD - When: 2 - 3 days - Reason: Recheck today's complaints, Continuance of care, Re-evaluation by your physician Discharge Instructions: - Discharge Summary Sheet uzma - Accidental Drug Poisoning, Adult uzma - Substance Use Disorder uzma - Intentional Drug Overdose uzma - Vomiting, Adult uzma - Substance Use Disorder and Mental Illness uzma Forms: - Medication Reconciliation Form uzma - Thank You Letter uzma - Antibiotic Education uzma - Prescription Opioid Use uzma Prescriptions: - Zofran 4 mg Oral Tablet - take 1 tablet by ORAL route every 12 hours As needed; 20 tablet; Refills: 0, uzma Product Selection Permitted Signatures: Dispatcher [employer] EDDick Bustamante MD MD cha Ballard, Brenda RN RN bb Corrections: (The following items were deleted from the chart) 00:43 00:41 PMHx: depressive disorder; bb bb 03:27 01:09 NS 0.9% 1000 ml IV at 1 bolus Per protocol; 1000 mL bolus ordered. uzma bb
[2022-07-04 02:57] LABS: Absolute Lymphocytes (CBC) 2.9 K/uL (0.7-4.9); Hematocrit 40.6 % (36.0-45.0); Lymphocytes % 34.1 % (15.3-44.8); MPV 8.6 fL (7.6-11.3); RBC Red Blood Cell Count 4.72 M/uL (3.86-4.86)
[2022-07-04 03:03] LABS: Protime INR 1.07
[2022-07-04 03:16] LABS: ALT/SGPT 21 U/L (13-56); AST/SGOT 12 U/L (15-37); Albumin 3.8 g/dL (3.4-5.0); Alkaline Phosphatase 117 U/L (45-117); BUN Blood Urea Nitrogen 9 mg/dL (7-18); Bicarbonate 29 mmol/L (21-32); Bilirubin Total 0.2 mg/dL (0.2-1.0); Glomerular Filtration Rate 130 ml/min (=/>90); Glucose Level 95 mg/dL (74-106); Potassium 3.7 mmol/L (3.5-5.1); Protein, Total 6.9 g/dL (6.4-8.2); Sodium Level 139 mmol/L (136-145)
[2022-07-04 03:21] LABS: Bilirubin Direct < 0.1 mg/dL (0-0.2)
[2022-07-04 04:27] VITALS: BP 99/66; TEMP 98.1; O2SAT 99
--- NOTE | 2022-07-05 14:33 | EKG ---
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
== END 2022-07-04 04:20 | disposition home or self-care (01) ==
LOC: ER 00:15
DX: R11.10 Vomiting, unspecified (principal); T54.0X1A Toxic effect of phenol and phenol homologues, accidental (unintentional), initial encounter; F31.9 Bipolar disorder, unspecified
CPT/HCPCS: 36415; 80048; 80076; 80320; 80329; 85025; 85610; 85730; 93005; 99283

== ENCOUNTER 2022-07-30 15:57 | Emergency (ER) | payer OTHER ==
--- OUTSIDE RECORDS SUMMARY | 2022-07-30 16:25 | XMS REPORT | Continuity of Care Document ---
:2000 Author Organization [facility] t Address [address] [place] [address] Care Team Providers Name Role Phone Pcp, Patient Does Not Have A Primary Care Physician +[id number] BOUCHRA MCINTOSH Attending Clinician Unavailable JAMES JACOBS Attending Clinician Unavailable Jose Guzmán Attending Clinician Unavailable Eric Moore Attending Clinician Unavailable Bouchra Mcintosh MD Attending Clinician DEONNA MELENDREZ Attending Clinician [...] Nolvia Husain MD Attending Clinician Doctor Unassigned, [place] Attending Clinician Unavailable Vignesh Mack MD Attending Clinician Vaccine, [facility] Attending Clinician Unavailable VIGNESH MACK Attending [...] Clinician TIM HOLGUIN Attending Clinician Unavailable Immunization, [facility] Attending Clin ician Unavailable CHELSY ROMO [...] Attending Clinician UNKNOWN, ATTENDING Attending Clinician Unavailable Nurse, [facility] [employer] Attending Clinician Unavailable NILTON MONTES Admitting Clinician Unavailable IRASEMA ROBLEDO Admitting Clinician Unavailable Keagan Luo MD Admitting Clinician KEAGAN LUO Admitting Clinician Unavailable DR ALAINA PARRY Admitting Clinician Unavailable Payers Payer Name Policy Type Policy Number Effective Date Expiration Date Chidi nice [facility] MEDICA[facility] STAR [id number] 2021 00:00:00 [facility] [id number] 2016 [facility] MEDICAID 00:00:00 Problems Condition Condition Condition [...] partial in partial 00:00: g of this [place] remission, remission, 00 note Me dical most [...] [place] disorder[place] disorder) 00 [facility] Branch Attention Attention Disease Active 2008-07 Overview: Univers deficit deficit 2-22 [place] ity o f hyperactiv hyperactiv 00:00: g of this [place] ity ity 00 note Medical disorder disorder might be Bran ch (ADHD) (ADHD) different from the original. 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 Allergies, Adverse Reactions, Alerts Allergy Allergy Status Severity Reaction(s) Onset Inactive Treating Comm ents Source Name Type Date Date Clinician No Known DA Active U [facility] 07[facility]15 [place] [facility] 00 are [place] No Known DA Active [facility] 07-04 [facility] 00:[facility]: d [facility] No Known DA Active U [facility] 07-09 Allergie 00:00: s 00 No Known DA Active U 2020-07 [facility] 07-25 Allergie 00:00: s 00 Unable DA Active U 2020-07 [facility] 07-25 Assess 00:00: 00 No Known DA Active [facility] Center s NO KNOWN Drug Active Univers ALLERGIE Class ity of S [facility] Family History Family Member Diagnosis Comments Start Date Stop Date Source Natural brother Psychiatry Universit y of [facility] Natural father Alcohol abuse Univers ity of [facility] Natural father Substance abuse Unive rsity of [facility] Natural mother Psychiatry [facility] Social History Social Habit Start Date Stop Date Quantity Comments Source History SDOH University o f Alcohol Comment [place] Med ical Branch Exposure to 2022-07-15 2022-07-25 Not sure University of SARS-CoV-2 00:00:00 08:20:00 [facility] (event) Branch Alcohol intake 2022-07-25 2022-07-25 Lifetime University of 00:00:00 00:00:00 non-drinker [facility] (finding) Branch Tobacco use and 2022-01-17 2022-01-17 Smokeless tobacco Un iversity of exposure 00:00:00 00:00:00 non-user [place] [facility] History [facility] 2020-04-20 2020-04-20 1 University o f Alcohol Frequency 00:00:00 00:00:00 [place] M edical Branch History [facility] 2020-04-20 2020-04-20 99 University o f Alcohol Std 00:00:00 00:00:00 [place] Medical Drinks Branch History [facility] 2020-04-20 2020-04-20 1 University o f Alcohol Binge 00:00:00 00:00:00 [place] [facility] al Branch Sex Assigned At [birth year] Universit y of 00:00:00 00:00:00 [facility] Smoking Status Start Date Stop Date Source Never smoked tobacco [facility] Medications Ordered Filled Start Stop Current Ordering Indication Dosage Frequency Signature Comments Components Source Medication Medication Date Date Medication? Clinician (SIG) Name Name hydrOXYzine 2023-0 Yes [id number] 25mg Take 1 Univers 25 mg 1-23 tablet by ity of tablet 00:00: mouth [place] 00 every 6 Medical (six) Branch hours as needed for Anxiety. hydrOXYzine 3-0 Yes [id number] 25mg Take 1 Univers 25 mg 1-23 tablet by ity of tablet 00:00: mouth [place] 00 every 6 Medical (six) Branch hours as needed for Anxiety. hydrOXYzine 2023-0 Yes [id number] 25mg Take 1 Univers 25 mg 1-23 tablet by ity of tablet 00:00: mouth [place] 00 every 6 Medical (six) Branch hours as needed for Anxiety. lamoTRIgine 2023-0 Yes [id number] 25mg Take 1 Univers 25 mg 1-11 tablet by ity of tablet 00:00: mouth in [place] 00 the Medical morning. Branch lamoTRIgine 2023-0 Yes [id number] 25mg Take 1 Univers 25 mg 1-11 tablet by ity of tablet 00:00: mouth in [place] 00 the Medical morning. Branch lamoTRIgine 2023-0 Yes [id number] 25mg Take 1 Univers 25 mg 1-11 tablet by ity of tablet 00:00: mouth in [place] 00 the Medical morning. Branch lamoTRIgine 2023-0 Yes [id number] 25mg Take 1 Univers 25 mg 1-11 tablet by ity of tablet 00:00: mouth in [place] 00 the Medical morning. Branch ARIPiprazol 2022- Yes [id number] 15mg Take 1 Univers e 15 mg 1-10 04-11 tablet by ity of tablet 00:00: 04:59 mouth in [place] 00 :00 the [facility] for 90 days. ARIPiprazol 2022- Yes [id number] 15mg Take 1 Univers e 15 mg 1-10 04-11 tablet by ity of tablet 00:00: 04:59 mouth in [place] 00 :00 the [facility] for 90 days. ARIPiprazol 2022- Yes [id number] 15mg Take 1 Univers e 15 mg 1-10 04-11 tablet by ity of tablet 00:00: 04:59 mouth in [place] 00 :00 the [facility] for 90 days. ARIPiprazol 2022- Yes [id number] 15mg Take 1 Univers e 15 mg 1-10 04-11 tablet by ity of tablet 00:00: 04:59 mouth in [place] 00 :00 the [facility] for 90 days. ARIPiprazol 2022- Yes [id number] 15mg Take 1 Univers e 15 mg 1-10 04-11 tablet by ity of tablet 00:00: 04:59 mouth in [place] 00 :00 the [facility] for 90 days. ARIPiprazol 2021-07- No [id number] 300mg Univers e (ABILIFY 2-15 12-15 ity of MAINTENA) 17:45: 16:48 [place] injection 00 :00 Medical SSRR 300 mg Branch ARIPiprazol 2021-07- No [id number] 300mg Univers e (ABILIFY 2-15 12-15 ity of MAINTENA) 17:45: 16:48 [place] injection 00 :00 Medical SSRR 300 mg Branch ARIPiprazol 2021-07- No [id number] 300mg Univers e (ABILIFY 2-15 12-15 ity of MAINTENA) 17:45: 16:48 [place] injection 00 :00 Medical SSRR 300 mg Branch ARIPiprazol 2021-07- No [id number] 300mg Univers e (ABILIFY 2-15 12-15 ity of MAINTENA) 17:45: 16:48 [place] injection 00 :00 Medical SSRR 300 mg Branch hydrOXYzine 2021-07 Yes [id number] 25mg Take 1 Univers 25 mg 2-12 tablet by ity of tablet 00:00: mouth [place] 00 every 6 Medical (six) Branch hours as needed for Anxiety. lamoTRIgine 2021-07 Yes [id number] 25mg Take 1 Univers 25 mg 2-12 tablet by ity of tablet 00:00: mouth in [place] 00 the Medical morning. Branch naltrexone 2021-07 Yes [id number] 50mg Take 1 Uni vers 50 mg 2-12 tablet by ity of tablet 00:00: mouth in [place] 00 the Medical morning. Branch hydrOXYzine 2021-07 Yes [id number] 25mg Take 1 Univers 25 mg 2-12 tablet by ity of tablet 00:00: mouth [place] 00 every 6 Medical (six) Branch hours as needed for Anxiety. naltrexone 2021- Yes [id number] 50mg Take 1 Uni vers 50 mg 2-12 tablet by ity of tablet 00:00: mouth in [place] 00 the Medical morning. Branch naltrexone 2021-07 Yes [id number] 50mg Take 1 Uni vers 50 mg 2-12 tablet by ity of tablet 00:00: mouth in [place] 00 the Medical morning. Branch naltrexone 2021- Yes [id number] 50mg Take 1 Uni vers 50 mg 2-12 tablet by ity of tablet 00:00: mouth in [place] 00 the Medical morning. Branch naltrexone 2021- Yes [id number] 50mg Take 1 Uni vers 50 mg 2-12 tablet by ity of tablet 00:00: mouth in [place] 00 the Medical morning. Branch hydrOXYzine 2021- Yes [id number] 25mg Take 1 Univers 25 mg 2-12 tablet by ity of tablet 00:00: mouth [place] 00 every 6 Medical (six) Branch hours as needed for Anxiety. lamoTRIgine 2021- Yes [id number] 25mg Take 1 Univers 25 mg 2-12 tablet by ity of tablet 00:00: mouth in [place] 00 the Medical morning. Branch naltrexone 2021- Yes [id number] 50mg Take 1 Uni vers 50 mg 2-12 tablet by ity of tablet 00:00: mouth in [place] 00 the Medical morning. Branch hydrOXYzine 2021- Yes [id number] 25mg Take 1 Univers 25 mg 2-12 tablet by ity of tablet 00:00: mouth [place] 00 every 6 Medical (six) Branch hours as needed for Anxiety. lamoTRIgine 2021-07 Yes [id number] 25mg Take 1 Univers 25 mg 2-12 tablet by ity of tablet 00:00: mouth in [place] 00 the Medical morning. Branch naltrexone 2021-07 Yes [id number] 50mg Take 1 Uni vers 50 mg 2-12 tablet by ity of tablet 00:00: mouth in [place] 00 the Medical morning. Branch hydrOXYzine 2021-07 Yes [id number] 25mg Take 1 Univers 25 mg 2-12 tablet by ity of tablet 00:00: mouth [place] 00 every 6 Medical (six) Branch hours as needed for Anxiety. lamoTRIgine 2021-07 Yes [id number] 25mg Take 1 Univers 25 mg 2-12 tablet by ity of tablet 00:00: mouth in [place] 00 the Medical morning. Branch naltrexone 2021- Yes [id number] 50mg Take 1 Uni vers 50 mg 2-12 tablet by ity of tablet 00:00: mouth in [place] 00 the Medical morning. Branch hydrOXYzine 2021-07 Yes [id number] 25mg Take 1 Univers 25 mg 2-12 tablet by ity of tablet 00:00: mouth [place] 00 every 6 Medical (six) Branch hours as needed for Anxiety. lamoTRIgine 2021-07 Yes [id number] 25mg Take 1 Univers 25 mg 2-12 tablet by ity of tablet 00:00: mouth in [place] 00 the Medical morning. Branch naltrexone 2021- Yes [id number] 50mg Take 1 Uni vers 50 mg 2-12 tablet by ity of tablet 00:00: mouth in [place] 00 the Medical morning. Branch hydrOXYzine 2021- Yes [id number] 25mg Take 1 Univers 25 mg 2-12 tablet by ity of tablet 00:00: mouth [place] 00 every 6 Medical (six) Branch hours as needed for Anxiety. lamoTRIgine 2021- Yes [id number] 25mg Take 1 Univers 25 mg 2-12 tablet by ity of tablet 00:00: mouth in [place] 00 the Medical morning. Branch naltrexone 2021- Yes [id number] 50mg Take 1 Uni vers 50 mg 2-12 tablet by ity of tablet 00:00: mouth in [place] 00 the Medical morning. Branch hydrOXYzine 2021 Yes [id number] 25mg Take 1 Univers 25 mg 2-12 tablet by ity of tablet 00:00: mouth [place] 00 every 6 Medical (six) Branch hours as needed for Anxiety. lamoTRIgine 2021-07 Yes [id number] 25mg Take 1 Univers 25 mg 2-12 tablet by ity of tablet 00:00: mouth in [place] 00 the Medical morning. Branch naltrexone 2021-07 Yes [id number] 50mg Take 1 Uni vers 50 mg 2-12 tablet by ity of tablet 00:00: mouth in [place] 00 the Medical morning. Branch hydrOXYzine 2021-07 Yes [id number] 25mg Take 1 Univers 25 mg 2-12 tablet by ity of tablet 00:00: mouth [place] 00 every 6 Medical (six) Branch hours as needed for Anxiety. lamoTRIgine 2021-07 Yes [id number] 25mg Take 1 Univers 25 mg 2-12 tablet by ity of tablet 00:00: mouth in [place] 00 the Medical morning. Branch naltrexone 2021-07 Yes [id number] 50mg Take 1 Uni vers 50 mg 2-12 tablet by ity of tablet 00:00: mouth in [place] 00 the Medical morning. Branch hydrOXYzine 2021-07 Yes [id number] 25mg Take 1 Univers 25 mg 2-12 tablet by ity of tablet 00:00: mouth [place] 00 every 6 Medical (six) Branch hours as needed for Anxiety. lamoTRIgine 2021-07 Yes [id number] 25mg Take 1 Univers 25 mg 2-12 tablet by ity of tablet 00:00: mouth in [place] 00 the Medical morning. Branch naltrexone 2021-07 Yes [id number] 50mg Take 1 Uni vers 50 mg 2-12 tablet by ity of tablet 00:00: mouth in [place] 00 the Medical morning. Branch atomoxetine 2021-07- Yes [id number] 60mg Take 1 Univers (STRATTERA) 2-12 -13 capsule by i ty of 60 mg 00:00: 04:59 mouth in [place] capsule 00 :00 the Medical morning Branch for 90 days. atomoxetine 2021-07- Yes [id number] 60mg Take 1 Univers (STRATTERA) 2-12 -13 capsule by i ty of 60 mg 00:00: 04:59 mouth in [place] capsule 00 :00 the Medical morning Branch for 90 days. atomoxetine 2021-07- Yes [id number] 60mg Take 1 Univers (STRATTERA) 08-14 capsule by i ty of 60 mg 00:00: 04:59 mouth in [place] capsule 00 :00 the Medical morning Branch for 90 days. atomoxetine 2021-07- Yes [id number] 60mg Take 1 Univers (STRATTERA) 08-14 capsule by i ty of 60 mg 00:00: 04:59 mouth in [place] capsule 00 :00 the Medical morning Branch for 90 days. atomoxetine 2021-07- Yes [id number] 60mg Take 1 Univers (STRATTERA) 08-14 capsule by i ty of 60 mg 00:00: 04:59 mouth in [place] capsule 00 :00 the Medical morning Branch for 90 days. atomoxetine 2021-07- Yes [id number] 60mg Take 1 Univers (STRATTERA) 08-14 capsule by i ty of 60 mg 00:00: 04:59 mouth in [place] capsule 00 :00 the Medical morning Branch for 90 days. atomoxetine 2021-07- Yes [id number] 60mg Take 1 Univers (STRATTERA) 08-14 capsule by i ty of 60 mg 00:00: 04:59 mouth in [place] capsule 00 :00 the Medical morning Branch for 90 days. atomoxetine 2021-07- Yes [id number] 60mg Take 1 Univers (STRATTERA) 08-14 capsule by i ty of 60 mg 00:00: 04:59 mouth in [place] capsule 00 :00 the Medical morning Branch for 90 days. atomoxetine 2021-07- Yes [id number] 60mg Take 1 Univers (STRATTERA) 08-14 capsule by i ty of 60 mg 00:00: 04:59 mouth in [place] capsule 00 :00 the Medical morning Branch for 90 days. atomoxetine 2021-07- Yes [id number] 60mg Take 1 Univers (STRATTERA) 08-14 capsule by i ty of 60 mg 00:00: 04:59 mouth in [place] capsule 00 :00 the Medical morning Branch for 90 days. atomoxetine 2021-07- Yes [id number] 60mg Take 1 Univers (STRATTERA) 08-14 capsule by i ty of 60 mg 00:00: 04:59 mouth in [place] capsule 00 :00 the Medical morning Branch for 90 days. atomoxetine 2021-07- Yes [id number] 60mg Take 1 Univers (STRATTERA) 2-06 04- capsule by i ty of 60 mg 00:00: 04:59 mouth in [place] capsule 00 :00 the Medical morning Branch for 90 days. atomoxetine 2021-07- Yes [id number] 60mg Take 1 Univers (STRATTERA) 2-06 04- capsule by i ty of 60 mg 00:00: 04:59 mouth in [place] capsule 00 :00 the Medical morning Branch for 90 days. hydrOXYzine 2021-07- No [id number] 25mg Take 1 Univers 25 mg 2-06 02- tablet by ity of tablet 00:00: 00:00 mouth [place] 00 :00 every 6 Medical (six) Branch hours as needed for Anxiety. hydrOXYzine 2021-07- No [id number] 25mg Take 1 Univers 25 mg 2-06 02- tablet by ity of tablet 00:00: 00:00 mouth [place] 00 :00 every 6 Medical (six) Branch hours as needed for Anxiety. hydrOXYzine 2021-07- No [id number] 25mg Take 1 Univers 25 mg 2-12 -23 tablet by ity of tablet 00:00: 00:00 mouth [place] 00 :00 every 6 Medical (six) Branch hours as needed for Anxiety. lamoTRIgine 2021-07- No [id number] 25mg Take 1 Univers 25 mg 2-12 -10 tablet by ity of tablet 00:00: 00:00 mouth in [place] 00 :00 the Medical morning. Branch lamoTRIgine 2021-07- No [id number] 25mg Take 1 Univers 25 mg 2-12 -10 tablet by ity of tablet 00:00: 00:00 mouth in [place] 00 :00 the Medical morning. Branch lamoTRIgine 2021-07- No [id number] 25mg Take 1 Univers 25 mg 2-12 -10 tablet by ity of tablet 00:00: 00:00 mouth in [place] 00 :00 the Medical morning. Branch lamoTRIgine 2021-07- No [id number] 25mg Take 1 Univers 25 mg 2-12 -10 tablet by ity of tablet 00:00: 00:00 mouth in [place] 00 :00 the Medical morning. Branch hydrOXYzine 2021-07- No 25mg 25 mg, Uni vers (ATARAX) -30 -30 Oral, ity of tablet 25 05:00: 05:14 ONCE, 1 [place] mg 00 :00 dose, On Medical Tue Branch 05/31/22 at 2300, [place] hydrOXYzine 2021-07 Yes [id number] 25mg Take 1 Univers 25 mg 1-29 tablet by ity of tablet 00:00: mouth [place] 00 every 6 Medical (six) Branch hours as needed for Anxiety. hydrOXYzine 2021-07- No [id number] 25mg Take 1 Univers 25 mg 1-29 12-12 tablet by ity of tablet 00:00: 00:00 mouth [place] 00 :00 every 6 Medical (six) Branch hours as needed for Anxiety. hydrOXYzine 2021-07- No [id number] 25mg Take 1 Univers 25 mg 1-29 12-12 tablet by ity of tablet 00:00: 00:00 mouth [place] 00 :00 every 6 Medical (six) Branch hours as needed for Anxiety. hydrOXYzine 2021-07- No [id number] 25mg Take 1 Univers 25 mg 1-29 12-12 tablet by ity of tablet 00:00: 00:00 mouth [place] 00 :00 every 6 Medical (six) Branch hours as needed for Anxiety. hydrOXYzine 2021-07- No [id number] 25mg Take 1 Univers 25 mg 1-29 12-12 tablet by ity of tablet 00:00: 00:00 mouth [place] 00 :00 every 6 Medical (six) Branch hours as needed for Anxiety. hydrOXYzine 2021-07- No [id number] 25mg Take 1 Univers 25 mg 1-29 12-12 tablet by ity of tablet 00:00: 00:00 mouth [place] 00 :00 every 6 Medical (six) Branch hours as needed for Anxiety. ARIPiprazol 2021-07- No [id number] 300mg Univers e (ABILIFY 1-17 -17 ity of MAINTENA) 17:00: 16:17 [place] injection 00 :00 Medical SSRR 300 mg Branch ARIPiprazol 2021-07- No [id number] 300mg Univers e (ABILIFY -17 11-17 ity of MAINTENA) 17:00: 16:17 [place] injection 00 :00 Medical SSRR 300 mg Branch ARIPiprazol 2021-07- No [id number] 300mg Univers e (ABILIFY 17 11-17 ity of MAINTENA) 17:00: 16:17 [place] injection 00 :00 Medical SSRR 300 mg Branch ARIPiprazol 2021-07- No [id number] 300mg Univers e (ABILIFY 17 11-17 ity of MAINTENA) 17:00: 16:17 [place] injection 00 :00 Medical SSRR 300 mg Branch ARIPiprazol 2021-07- No [id number] 300mg Univers e (ABILIFY 07-19 11-17 ity of MAINTENA) 17:00: 16:17 [place] injection 00 :00 Medical SSRR 300 mg Branch [facility] 2021-07 Yes Univers MAINTENA 1-15 ity of 300 mg sers 00:00: [facility] Branch 2021-07 Yes Univers MAINTENA 1-15 ity of 300 mg sers 00:00: [facility] 2021-07 Yes Univers MAINTENA 1-15 ity of 300 mg sers 00:00: [facility] Branch [facility] 2021-07 Yes Univers MAINTENA 1-15 ity of 300 mg sers 00:00: [facility] 2021-07 Yes Univers MAINTENA 1-15 ity of 300 mg sers 00:00: [facility] 2021-07 Yes Univers MAINTENA 1-15 ity of 300 mg sers 00:00: [place] [facility] 2021-07 Yes Univers MAINTENA 1-15 ity of 300 mg sers 00:00: [facility] 2021-07 Yes Univers MAINTENA 1-15 ity of 300 mg sers 00:00: Medical [place] [facility] 2021-07 Yes Univers MAINTENA 1-15 ity of 300 mg sers 00:00: Medical [place] [facility] 2021-07- No Univers MAINTENA 1-15 01-10 ity of 300 mg sers 00:00: 00:00 [place] 00 :00 Medical Branch ABILIFY 2021-2022- No Univers MAINTENA 07-17 ity of 300 mg sers 00:00: 00:00 [place] 00 :00 Medical Branch ABILIFY 2021-2022- No Univers MAINTENA 07-17 ity of 300 mg sers 00:00: 00:00 [place] 00 :00 Medical Branch ABILIFY 2021-2022- No Univers MAINTENA 07-17 ity of 300 mg sers 00:00: 00:00 [place] 00 :00 Medical Branch ABILIFY 2021-2022- No Univers MAINTENA 07-17 ity of 300 mg sers 00:00: 00:00 [place] 00 :00 Medical Branch atomoxetine 2021- Yes [id number] 40mg Take 1 Univers 40 mg 0-31 capsule by ity of capsule 00:00: mouth in [place] 00 the Medical morning. Branch lamoTRIgine 2021- Yes [id number] 25mg Take 1 Univers 25 mg 0-31 tablet by ity of tablet 00:00: mouth in [place] 00 the Medical morning. Branch atomoxetine 2021- Yes [id number] 40mg Take 1 Univers 40 mg 0-31 capsule by ity of capsule 00:00: mouth in [place] the Medical morning. Branch lamoTRIgine 2021- Yes [id number] 25mg Take 1 Univers 25 mg 0-31 tablet by ity of tablet 00:00: mouth in [place] the Medical morning. Branch atomoxetine 2021- Yes [id number] 40mg Take 1 Univers 40 mg 0-31 capsule by ity of capsule 00:00: mouth in [place] the Medical morning. Branch lamoTRIgine 2021- Yes [id number] 25mg Take 1 Univers 25 mg 0-31 tablet by ity of tablet 00:00: mouth in [place] the Medical morning. Branch atomoxetine 2021- Yes [id number] 40mg Take 1 Univers 40 mg 0-31 capsule by ity of capsule 00:00: mouth in [place] 00 the Medical morning. Branch lamoTRIgine 2021- Yes [id number] 25mg Take 1 Univers 25 mg 0-31 tablet by ity of tablet 00:00: mouth in [place] 00 the Medical morning. Branch atomoxetine 2021-07 Yes [id number] 40mg Take 1 Univers 40 mg 0-31 capsule by ity of capsule 00:00: mouth in [place] 00 the Medical morning. Branch lamoTRIgine 2021-07 Yes [id number] 25mg Take 1 Univers 25 mg 0-31 tablet by ity of tablet 00:00: mouth in [place] 00 the Medical morning. Branch atomoxetine 2021-07 Yes [id number] 40mg Take 1 Univers 40 mg 0-31 capsule by ity of capsule 00:00: mouth in [place] 00 the Medical morning. Branch lamoTRIgine 2021-07 Yes [id number] 25mg Take 1 Univers 25 mg 0-31 tablet by ity of tablet 00:00: mouth in [place] 00 the Medical morning. Branch atomoxetine 2021-07 Yes [id number] 40mg Take 1 Univers 40 mg 0-31 capsule by ity of capsule 00:00: mouth in [place] 00 the Medical morning. [place] lamoTRIgine 2021-07 Yes [id number] 25mg Take 1 Univers 25 mg 0-31 tablet by ity of tablet 00:00: mouth in [place] the Medical morning. Branch atomoxetine 2021-07 Yes [id number] 40mg Take 1 Univers 40 mg 0-31 capsule by ity of capsule 00:00: mouth in [place] 00 the Medical morning. Branch lamoTRIgine 2021-07 Yes [id number] 25mg Take 1 Univers 25 mg 0-31 tablet by ity of tablet 00:00: mouth in [place] 00 the Medical morning. Branch atomoxetine 2021-07 Yes [id number] 40mg Take 1 Univers 40 mg 0-31 capsule by ity of capsule 00:00: mouth in [place] 00 the Medical morning. Branch lamoTRIgine 2021-07 Yes [id number] 25mg Take 1 Univers 25 mg 0-31 tablet by ity of tablet 00:00: mouth in [place] 00 the Medical morning. Branch naltrexone 2021-07- Yes [id number] 50mg Take 1 Univers 50 mg 0-31 01-30 tablet by ity of tablet 00:00: 05:59 mouth in [place] 00 :00 the Medical morning Branch for 90 days. naltrexone 2021-07- Yes [id number] 50mg Take 1 Univers 50 mg 0-31 01-30 tablet by ity of tablet 00:00: 05:59 mouth in [place] 00 :00 the [facility] for 90 days. naltrexone 2021-07- Yes [id number] 50mg Take 1 Univers 50 mg 0-31 01-30 tablet by ity of tablet 00:00: 05:59 mouth in [place] 00 :00 the [facility] for 90 days. naltrexone 2021-07- Yes [id number] 50mg Take 1 Univers 50 mg 0-31 01-30 tablet by ity of tablet 00:00: 05:59 mouth in [place] 00 :00 the [facility] for 90 days. naltrexone 2021-07- Yes [id number] 50mg Take 1 Univers 50 mg 0-31 01-30 tablet by ity of tablet 00:00: 05:59 mouth in [place] 00 :00 the [facility] for 90 days. naltrexone 2021-07- Yes [id number] 50mg Take 1 Univers 50 mg 0-31 01-30 tablet by ity of tablet 00:00: 05:59 mouth in [place] 00 :00 the [facility] for 90 days. naltrexone 2021-07- Yes [id number] 50mg Take 1 Univers 50 mg 0-31 01-30 tablet by ity of tablet 00:00: 05:59 mouth in [place] 00 :00 the [facility] for 90 days. naltrexone 2021-07- Yes [id number] 50mg Take 1 Univers 50 mg 0-31 01-30 tablet by ity of tablet 00:00: 05:59 mouth in [place] 00 :00 the [facility] for 90 days. naltrexone 2021-07- Yes [id number] 50mg Take 1 Univers 50 mg 0-31 01-30 tablet by ity of tablet 00:00: 05:59 mouth in [place] 00 :00 the [facility] for 90 days. naltrexone 2021-07- No [id number] 50mg Take 1 Univers 50 mg 0-31 12-12 tablet by ity of tablet 00:00: 00:00 mouth in [place] 00 :00 the [facility] for 90 days. atomoxetine 2021-07- No [id number] 40mg Take 1 Univers 40 mg 0-31 12-12 capsule by ity of capsule 00:00: 00:00 mouth in [place] 00 :00 the [facility]. Branch lamoTRIgine 2021-07- No [id number] 25mg Take 1 Univers 25 mg 0-31 12-12 tablet by ity of tablet 00:00: 00:00 mouth in [place] 00 :00 the Medical morning. Branch naltrexone 2021-07- No [id number] 50mg Take 1 Univers 50 mg 0-31 12-12 tablet by ity of tablet 00:00: 00:00 mouth in [place] 00 :00 the Medical morning Branch for 90 days. atomoxetine 2021-07- No [id number] 40mg Take 1 [facility] 40 mg 0-31 12-12 capsule by [facility] capsule 00:00: 00:00 mouth in [place] 00 :00 the Medical morning. Branch lamoTRIgine 2021-07- No [id number] 25mg Take 1 [facility] 25 mg 0-31 12-12 tablet by [facility] of tablet 00:00: 00:00 mouth in [place] 00 :00 the Medical morning. Branch naltrexone 2021-07- No [id number] 50mg Take 1 [facility] 50 mg 0-31 12-12 tablet by [facility] of tablet 00:00: 00:00 mouth in [place] 00 :00 the Medical morning Branch for 90 days. atomoxetine 2021-07- No [id number] 40mg Take 1 [facility] 40 mg 0-31 12-12 capsule by it[facility] of capsule 00:00: 00:00 mouth in [place] 00 :00 the Medical morning. Branch lamoTRIgine 2021-07- No [id number] 25mg Take 1 [facility] 25 mg 0-31 12-12 tablet by [facility] of tablet 00:00: 00:00 mouth in [place] 00 :00 the Medical morning. Branch naltrexone 2021-07- No [id number] 50mg Take 1 [facility] 50 mg 0-31 12-12 tablet by [facility] of tablet 00:00: 00:00 mouth in [place] 00 :00 the Medical morning Branch for 90 days. atomoxetine 2021-07- No [id number] 40mg Take 1 [facility] 40 mg 0-31 12-12 capsule by [facility] of capsule 00:00: 00:00 mouth in [place] 00 :00 the Medical morning. Branch lamoTRIgine 2021-07- No [id number] 25mg Take 1 [facility] 25 mg 0-31 12-12 tablet by [facility] of tablet 00:00: 00:00 mouth in [place] 00 :00 the Medical morning. Branch naltrexone 2021-07- No [id number] 50mg Take 1 [facility] 50 mg 0-31 12-12 tablet by [facility] of tablet 00:00: 00:00 mouth in [place] 00 :00 the Medical morning Branch for 90 days. atomoxetine 2021-07- No [id number] 40mg Take 1 [facility] 40 mg 0-31 12-12 capsule by [facility] of capsule 00:00: 00:00 mouth in [place] 00 :00 the Medical morning. Branch lamoTRIgine 2021-07- No [id number] 25mg Take 1 [facility] 25 mg 0-31 12-12 tablet by [facility] of tablet 00:00: 00:00 mouth in [place] 00 :00 the Medical morning. Branch ARIPiprazol 2021-07- No [id number] 300mg [facility] e (ABILIFY 0-20 10-20 ity of [facility]) 15:15: 15:46 [place] injection 00 :00 Medical SSRR 300 mg Branch ARIPiprazol 2021-07- No [id number] 300mg [facility] e (ABILIFY 0-20 10-20 ity of [employer]) 15:15: 15:46 [place] injection 00 :00 Medical SSRR 300 mg Branch ARIPiprazol 2021-07- No [id number] 300mg [facility] e (ABILIFY 0-20 10-20 it[facility] of [employer]) 15:15: 15:46 [place] injection 00 :00 Medical SSRR 300 mg Branch ARIPiprazol 2021-07- No [id number] 300mg [facility] e (ABILIFY 0-20 10-20 ity of [facility]) 15:15: 15:46 [place] injection 00 :00 Medical SSRR 300 mg Branch ARIPiprazol 2021-07- No [id number] 300mg [facility] e (ABILIFY 0-20 10-20 ity of [facility]) 15:15: 15:46 [place] injection 00 :00 Medical SSRR 300 mg Branch ARIPiprazol 2021-07- No [id number] 300mg [facility] e (ABILIFY 0-20 10-20 ity of [facility]) 15:15: 15:46 [place] injection 00 :00 Medical SSRR 300 mg Branch ARIPiprazol 2021-2- No [id number] 300mg [facility] e (ABILIFY 0-19 10-20 ity of [facility]) 15:45: 03:44 [place] injection 00 :00 Medical SSRR 300 mg Branch lamoTRIgine 2021- Yes 25mg Take 1 [facility] ers 25 mg 0-18 tablet by ity of tablet 00:00: mouth in [place] the Medical morning. Branch lamoTRIgine 2021-1 Yes 25mg Take 1 [facility] ers 25 mg 0-18 tablet by ity of tablet 00:00: mouth in [place] the Medical morning. Branch lamoTRIgine 2021-1 Yes 25mg Take 1 [facility] ers 25 mg 0-18 tablet by ity of tablet 00:00: mouth in [place] the Medical morning. Branch lamoTRIgine 2021-1 Yes 25mg Take 1 [facility] ers 25 mg 0-18 tablet by ity of tablet 00:00: mouth in [place] the Medical morning. Branch lamoTRIgine 2-1 Yes 25mg Take 1 [facility] ers 25 mg 0-18 tablet by [facility] of tablet 00:00: mouth in [place] the Medical morning. Branch lamoTRIgine 2021-1 Yes 25mg Take 1 [facility] ers 25 mg 0-18 tablet by it[facility] of tablet 00:00: mouth in [place] the Medical morning. Branch lamoTRIgine 2021-1 Yes 25mg Take 1 [facility] ers 25 mg 0-18 tablet by it[facility] of tablet 00:00: mouth in [place] the Medical morning. Branch lamoTRIgine 2-1 Yes 25mg Take 1 [facility] ers 25 mg 0-18 tablet by it[facility] of tablet 00:00: mouth in [place] the Medical morning. Branch lamoTRIgine 2-1 Yes 25mg Take 1 [facility] ers 25 mg 0-18 tablet by ity of tablet 00:00: mouth in [place] the Medical morning. Branch lamoTRIgine 2-1 Yes 25mg Take 1 [facility] ers 25 mg 0-18 tablet by ity of tablet 00:00: mouth in [place] the Medical morning. Branch lamoTRIgine 2-1 Yes 25mg Take 1 [facility] ers 25 mg 0-18 tablet by ity of tablet 00:00: mouth in [place] the Medical morning. Branch lamoTRIgine 2021-1 Yes 25mg Take 1 [facility] ers 25 mg 0-18 tablet by ity of tablet 00:00: mouth in [place] 00 the Medical morning. Branch lamoTRIgine 2021-2021- No 25mg Take 1 [facility] vers 25 mg 0-18 10-31 tablet by ity of tablet 00:00: 00:00 mouth in [place] 00 :00 the Medical morning. Branch lamoTRIgine 2021-2021- No 25mg Take 1 [facility] vers 25 mg 0-18 10-31 tablet by ity of tablet 00:00: 00:00 mouth in [place] 00 :00 the Medical morning. Branch lamoTRIgine 2021-2021- No 25mg Take 1 [facility] vers 25 mg 0-18 10-31 tablet by ity of tablet 00:00: 00:00 mouth in [place] 00 :00 the Medical morning. Branch lamoTRIgine 2021-2021- No 25mg Take 1 [facility] vers 25 mg 0-18 10-31 tablet by it[facility] of tablet 00:00: 00:00 mouth in [place] 00 :00 the Medical morning. Branch atomoxetine 2021- Yes [id number] 40mg Take 1 [facility] 40 mg 0-13 capsule by ity of capsule 00:00: mouth in [place] 00 the Medical morning. Branch atomoxetine 2021- Yes [id number] 40mg Take 1 [facility] 40 mg 0-13 capsule by ity of capsule 00:00: mouth in [place] 00 the Medical morning. Branch atomoxetine 2021- Yes [id number] 40mg Take 1 [facility] 40 mg 0-13 capsule by ity of capsule 00:00: mouth in [place] 00 the Medical morning. Branch atomoxetine 2021- Yes [id number] 40mg Take 1 [facility] 40 mg 0-13 capsule by it[facility] of capsule 00:00: mouth in [place] 00 the Medical morning. Branch atomoxetine 2021-1 Yes [id number] 40mg Take 1 [facility] 40 mg 0-13 capsule by ity of capsule 00:00: mouth in [place] 00 the Medical morning. Branch atomoxetine 2021-1 Yes [id number] 40mg Take 1 [facility] 40 mg 0-13 capsule by [facility] of capsule 00:00: mouth in [place] 00 the Medical morning. Branch atomoxetine 2021- Yes [id number] 40mg Take 1 [facility] 40 mg 0-13 capsule by ity of capsule 00:00: mouth in [place] 00 the Medical morning. Branch atomoxetine 2021-07 Yes [id number] 40mg Take 1 [facility] 40 mg 0-13 capsule by [facility]y of capsule 00:00: mouth in [place] 00 the Medical morning. Branch atomoxetine 2021-07 Yes [id number] 40mg Take 1 [facility] 40 mg 0-13 capsule by ity of capsule 00:00: mouth in [place] the Medical morning. Branch atomoxetine 2021-07 Yes [id number] 40mg Take 1 [facility] 40 mg 0-13 capsule by ity of capsule 00:00: mouth in [place] the Medical morning. Branch atomoxetine 2021-07 Yes [id number] 40mg Take 1 [facility] 40 mg 0-13 capsule by ity of capsule 00:00: mouth in [place] 00 the Medical morning. Branch atomoxetine 2021-07 Yes [id number] 40mg Take 1 [facility] 40 mg 0-13 capsule by ity of capsule 00:00: mouth in [place] the Medical morning. Branch atomoxetine 2021-07 Yes [id number] 40mg Take 1 [facility] 40 mg 0-13 capsule by ity of capsule 00:00: mouth in [place] the Medical morning. Branch atomoxetine 2021-07 Yes [id number] 40mg Take 1 [facility] 40 mg 0-13 capsule by ity of capsule 00:00: mouth in [place] the Medical morning. Branch atomoxetine 2021-07 Yes [id number] 40mg Take 1 [facility] 40 mg 0-13 capsule by ity of capsule 00:00: mouth in [place] the Medical morning. Branch atomoxetine 2021-07 Yes [id number] 40mg Take 1 [facility] 40 mg 0-13 capsule by ity of capsule 00:00: mouth in [place] the Medical morning. Branch atomoxetine 2021-07 Yes [id number] 40mg Take 1 [facility] 40 mg 0-13 capsule by ity of capsule 00:00: mouth in [place] 00 the Medical morning. Branch atomoxetine 2021-07 Yes [id number] 40mg Take 1 [facility] 40 mg 0-13 capsule by ity of capsule 00:00: mouth in [place] 00 the Medical morning. Branch atomoxetine 2021-07- No [id number] 40mg Take 1 [facility] 40 mg 0-13 10-31 capsule by it[facility] of capsule 00:00: 00:00 mouth in [place] 00 :00 the Medical morning. Branch atomoxetine 2021-07- No [id number] 40mg Take 1 [facility] 40 mg 0-13 10-31 capsule by it[facility] of capsule 00:00: 00:00 mouth in [place] 00 :00 the Medical morning. Branch atomoxetine 2021-07- No [id number] 40mg Take 1 [facility] 40 mg 0-13 10-31 capsule by it[facility] of capsule 00:00: 00:00 mouth in [place] 00 :00 the Medical morning. Branch atomoxetine 2021-07- No [id number] 40mg Take 1 [facility] 40 mg 0-13 10-31 capsule by ity of capsule 00:00: 00:00 mouth in [place] 00 :00 the Medical morning. Branch NaCl [...] by ity of capsule 00:00: mouth in [place] 00 the Medical morning. Branch lamoTRIgine 2021-07 Yes 25mg Take 1 [facility] ers 25 mg 0-07 tablet by ity of tablet 00:00: mouth in [place] 00 the Medical morning. Branch atomoxetine 2021-07 Yes 40mg Take 1 [facility] ers 40 mg 0-07 capsule by ity of capsule 00:00: mouth in [place] 00 the Medical morning. Branch lamoTRIgine 2021-07 Yes 25mg Take 1 [facility] ers 25 mg 0-07 tablet by ity of tablet 00:00: mouth in [place] 00 the Medical morning. Branch atomoxetine 2021-07 Yes 40mg Take 1 [facility] ers 40 mg 0-07 capsule by ity of capsule 00:00: mouth in [place] 00 the Medical morning. Branch lamoTRIgine 2021- Yes 25mg Take 1 [facility] ers 25 mg 0-07 tablet by ity of tablet 00:00: mouth in [place] 00 the Medical morning. Branch atomoxetine 2021- Yes 40mg Take 1 [facility] ers 40 mg 0-07 capsule by ity of capsule 00:00: mouth in [place] 00 the Medical morning. Branch lamoTRIgine 2021-07 Yes 25mg Take 1 [facility] ers 25 mg 0-07 tablet by ity of tablet 00:00: mouth in [place] 00 the Medical morning. Branch lamoTRIgine 2021-07 Yes 25mg Take 1 [facility] ers 25 mg 0-07 tablet by ity of tablet 00:00: mouth in [place] 00 the Medical morning. Branch lamoTRIgine 2021-07 Yes 25mg Take 1 [facility] ers 25 mg 0-07 tablet by ity of tablet 00:00: mouth in [place] 00 the Medical morning. Branch lamoTRIgine 2021-07 Yes 25mg Take 1 [facility] ers 25 mg 0-07 tablet by ity of tablet 00:00: mouth in [place] 00 the morning. Branch lamoTRIgine 2021-07 Yes 25mg Take 1 [facility] ers 25 mg 0-07 tablet by ity of tablet 00:00: mouth in [place] 00 the morning. Branch lamoTRIgine 2021-07 Yes 25mg Take 1 [facility] ers 25 mg 0-07 tablet by ity of tablet 00:00: mouth in [place] 00 the morning. Branch lamoTRIgine 2021-07 Yes 25mg Take 1 [facility] ers 25 mg 0-07 tablet by ity of tablet 00:00: mouth in [place] the morning. Branch polyethylen 2021-07- No [id number] 17g Take 1 [facility] e glycol 0-07 11-07 Packet by ity o f 3350 17 00:00: 05:59 mouth in [place] gram powder 00 :00 the morning Branch for 30 days. polyethylen 2021-07- No [id number] 17g Take 1 [facility] e glycol 0-07 11-07 Packet by ity o f 3350 17 00:00: 05:59 mouth in [place] gram powder 00 :00 the Medical morning Branch for 30 days. polyethylen 2021-07- No [id number] 17g Take 1 [facility] e glycol 0-07 11-07 Packet by ity o f 3350 17 00:00: 05:59 mouth in [place] gram powder 00 :00 the Medical morning Branch for 30 days. polyethylen 2021-07- No [id number] 17g Take 1 [facility] e glycol 0-07 11-07 Packet by ity o f 3350 17 00:00: 05:59 mouth in [place] gram powder 00 :00 the Medical morning Branch for 30 days. polyethylen 2021-07- No [id number] 17g Take 1 [facility] e glycol 0-07 11-07 Packet by ity o f 3350 17 00:00: 05:59 mouth in [place] gram powder 00 :00 the Medical morning Branch for 30 days. polyethylen 2021-07- No [id number] 17g Take 1 [facility] e glycol 0-07 11-07 Packet by ity o f 3350 17 00:00: 05:59 mouth in [place] gram powder 00 :00 the Medical morning Branch for 30 days. polyethylen 2021-07- No [id number] 17g Take 1 [facility] e glycol 0-07 11-07 Packet by ity o f 3350 17 00:00: 05:59 mouth in [place] gram powder 00 :00 the Medical morning Branch for 30 days. polyethylen 2021-07- No [id number] 17g Take 1 [facility] e glycol 0-07 11-07 Packet by ity o f 3350 17 00:00: 05:59 mouth in [place] gram powder 00 :00 the [facility] morning Branch for 30 days. polyethylen 2021-07- No [id number] 17g Take 1 [facility] e glycol 0-07 11-07 Packet by ity o f 3350 17 00:00: 05:59 mouth in [place] gram powder 00 :00 the [facility] morning Branch for 30 days. polyethylen 2021-07- No [id number] 17g Take 1 [facility] e glycol 0-07 11-07 Packet by ity o f 3350 17 00:00: 05:59 mouth in [place] gram powder 00 :00 the Medical morning Branch for 30 days. polyethylen 2021-07- No [id number] 17g Take 1 [facility] e glycol 0-07 11-07 Packet by ity o f 3350 17 00:00: 05:59 mouth in [place] gram powder 00 :00 the Medical morning Branch for 30 days. polyethylen 2021-07- No [id number] 17g Take 1 [facility] e glycol 0-07 11-07 Packet by ity o f 3350 17 00:00: 05:59 mouth in [place] gram powder 00 :00 the Medical morning Branch for 30 days. polyethylen 2021-07- No [id number] 17g Take 1 [facility] e glycol 0-07 11-07 Packet by ity o f 3350 17 00:00: 05:59 mouth in [place] gram powder 00 :00 the Medical morning Branch for 30 days. polyethylen 2021-07- No [id number] 17g Take 1 [facility] e glycol 0-07 11-07 Packet by ity o f 3350 17 00:00: 05:59 mouth in [place] gram powder 00 :00 the Medical morning Branch for 30 days. polyethylen 2021-07- No [id number] 17g Take 1 [facility] e glycol 0-07 11-07 Packet by ity o f 3350 17 00:00: 05:59 mouth in [place] gram powder 00 :00 the Medical morning Branch for 30 days. polyethylen 2021-07- No [id number] 17g Take 1 [facility] e glycol 0-07 11-07 Packet by ity o f 3350 17 00:00: 05:59 mouth in [place] gram powder 00 :00 the Medical morning Branch for 30 days. polyethylen 2021-07- No [id number] 17g Take 1 [facility] e glycol 0-07 11-07 Packet by ity o f 3350 17 00:00: 05:59 mouth in [place] gram powder 00 :00 the Medical morning Branch for 30 days. polyethylen 2021-07- No [id number] 17g Take 1 [facility] e glycol 0-07 11-07 Packet by ity o f 3350 17 00:00: 05:59 mouth in [place] gram powder 00 :00 the Medical morning Branch for 30 days. polyethylen 2021-07- No [id number] 17g Take 1 [facility] e glycol 0-07 11-07 Packet by ity o f 3350 17 00:00: 05:59 mouth in [place] gram powder 00 :00 the Medical morning Branch for 30 days. polyethylen 2021-07- No [id number] 17g Take 1 [facility] e glycol 0-07 11-07 Packet by ity o f 3350 17 00:00: 05:59 mouth in [place] gram powder 00 :00 the Medical morning Branch for 30 days. polyethylen 2021-07- No [id number] 17g Take 1 [facility] e glycol 0-07 11-07 Packet by ity o f 3350 17 00:00: 05:59 mouth in [place] gram powder 00 :00 the Medical morning Branch for 30 days. polyethylen 2021-07- No [id number] 17g Take 1 [facility] e glycol 0-07 11-07 Packet by ity o f 3350 17 00:00: 05:59 mouth in [place] gram powder 00 :00 the Medical morning Branch for 30 days. polyethylen 2021-07- No [id number] 17g Take 1 [facility] e glycol 0-07 11-07 Packet by ity o f 3350 17 00:00: 05:59 mouth in [place] gram powder 00 :00 the Medical morning Branch for 30 days. polyethylen 2021-07- No [id number] 17g Take 1 [facility] e glycol 0-07 11-07 Packet by ity o f 3350 17 00:00: 05:59 mouth in [place] gram powder 00 :00 the Medical morning Branch for 30 days. polyethylen 2021-07- No [id number] 17g Take 1 [facility] e glycol 0-07 11-07 Packet by ity o f 3350 17 00:00: 05:59 mouth in [place] gram powder 00 :00 the Medical morning Branch for 30 days. polyethylen 2021-07- No [id number] 17g Take 1 [facility] e glycol 0-07 11-07 Packet by [facility] f 3350 17 00:00: 05:59 mouth in [place] gram powder 00 :00 the Medical morning Branch for 30 days. lamoTRIgine 2021-2021- No 25mg Take 1 [facility] vers 25 mg 0-07 10-18 tablet by ity of tablet 00:00: 00:00 mouth in [place] 00 :00 the Medical morning. Branch lamoTRIgine 2021-2021- No 25mg Take 1 [facility] vers 25 mg 0-07 10-18 tablet by ity of tablet 00:00: 00:00 mouth in [place] 00 :00 the Medical morning. Branch lamoTRIgine 2021-2021- No 25mg Take 1 [facility] vers 25 mg 0-07 10-18 tablet by ity of tablet 00:00: 00:00 mouth in [place] 00 :00 the Medical morning. Branch lamoTRIgine 2021-2- No 25mg Take 1 [facility] vers 25 mg 0-07 10-18 tablet by ity of tablet 00:00: 00:00 mouth in [place] 00 :00 the Medical morning. Branch lamoTRIgine 2021-2- No 25mg Take 1 [facility] vers 25 mg 0-07 10-18 tablet by ity of tablet 00:00: 00:00 mouth in [place] 00 :00 the Medical morning. Branch lamoTRIgine 2021-2- No 25mg Take 1 [facility] vers 25 mg 0-07 10-18 tablet by ity of tablet 00:00: 00:00 mouth in [place] 00 :00 the Medical morning. Branch lamoTRIgine 2021-1 2- No 25mg Take 1 [facility] vers 25 mg 0-07 10-18 tablet by ity of tablet 00:00: 00:00 mouth in [place] 00 :00 the Medical morning. Branch lamoTRIgine 2021-1 2021- No 25mg Take 1 [facility] vers 25 mg 0-07 10-18 tablet by ity of tablet 00:00: 00:00 mouth in [place] 00 :00 the Medical morning. Branch lamoTRIgine 2021-2021- No 25mg Take 1 [facility] vers 25 mg 0-07 10-18 tablet by ity of tablet 00:00: 00:00 mouth in [place] 00 :00 the Medical morning. Branch lamoTRIgine 2021-2021- No 25mg Take 1 [facility] vers 25 mg 0-07 10-18 tablet by ity of tablet 00:00: 00:00 mouth in [place] 00 :00 the Medical morning. Branch lamoTRIgine 2021-2021- No 25mg Take 1 [facility] vers 25 mg 0-07 10-18 tablet by ity of tablet 00:00: 00:00 mouth in [place] 00 :00 the Medical morning. Branch tamsulosin 2021-2021- No [id number] .4mg Take 1 [facility] 0.4 mg 24 0-07 10-15 capsule by ity of hr capsule 00:00: 04:[address] [facility] 00 :00 the Medical morning Branch for 7 days. tamsulosin 2021-2021- No [id number] .4mg Take 1 [facility] 0.4 mg 24 0-07 10-15 capsule by ity of hr capsule 00:00: 04:59 mouth in [place] 00 :00 the Medical morning Branch for 7 days. tamsulosin 20212021- No [id number] .4mg Take 1 [facility] 0.4 mg 24 0-07 10-15 capsule by ity of hr capsule 00:00: 04:59 mouth in [place] 00 :00 the Medical morning Branch for 7 days. tamsulosin 2021-07- No [id number] .4mg Take 1 [facility] 0.4 mg 24 0-07 10-15 capsule by ity of hr capsule 00:00: 04:59 mouth in [place] 00 :00 the Medical morning Branch for 7 days. tamsulosin 2021-07- No [id number] .4mg Take 1 [facility] 0.4 mg 24 0-07 10-15 capsule by ity of hr capsule 00:00: 04:59 mouth in [place] 00 :00 the [facility] morning Branch for 7 days. tamsulosin 2021-07 No [id number] .4mg Take 1 [facility] 0.4 mg 24 0-07 10-15 capsule by ity of hr capsule 00:00: 04:59 mouth in [place] 00 :00 the [facility] morning Branch for 7 days. tamsulosin 2021-07- No [id number] .4mg Take 1 [facility] 0.4 mg 24 0-07 10-15 capsule by ity of hr capsule 00:00: 04:59 mouth in [place] 00 :00 the [facility] morning Branch for 7 days. tamsulosin 2021-07- No [id number] .4mg Take 1 [facility] 0.4 mg 24 0-07 10-15 capsule by ity of hr capsule 00:00: 04:59 mouth in [place] 00 :00 the [facility] morning Branch for 7 days. tamsulosin 2021-07 No [id number] .4mg Take 1 [facility] 0.4 mg 24 0-07 10-15 capsule by ity of hr capsule 00:00: 04:59 mouth in [place] 00 :00 the [facility] morning Branch for 7 days. tamsulosin 2021-07 No [id number] .4mg Take 1 [facility] 0.4 mg 24 0-07 10-15 capsule by ity of hr capsule 00:00: 04:59 mouth in [place] 00 :00 the Medical morning Branch for 7 days. tamsulosin 2021-07- No [id number] .4mg Take 1 [facility] 0.4 mg 24 0-07 10-15 capsule by ity of hr capsule 00:00: 04:59 mouth in [place] 00 :00 the Medical morning Branch for 7 days. tamsulosin 2021-07- No [id number] .4mg Take 1 [facility] 0.4 mg 24 0-07 10-15 capsule by ity of hr capsule 00:00: 04:59 mouth in [place] 00 :00 the Medical morning Branch for 7 days. tamsulosin 2021-07- No [id number] .4mg Take 1 [facility] 0.4 mg 24 0-07 10-15 capsule by ity of hr capsule 00:00: 04:59 mouth in [place] 00 :00 the [facility] morning Branch for 7 days. tamsulosin 2021-07- No [id number] .4mg Take 1 [facility] 0.4 mg 24 0-07 10-15 capsule by ity of hr capsule 00:00: 04:59 mouth in [place] 00 :00 the [facility] morning Branch for 7 days. tamsulosin 2021-07- No [id number] .4mg Take 1 [facility] 0.4 mg 24 0-07 10-15 capsule by ity of hr capsule 00:00: 04:59 mouth in [place] 00 :00 the [facility] morning Branch for 7 days. tamsulosin 2021-07- No [id number] .4mg Take 1 [facility] 0.4 mg 24 0-07 10-15 capsule by ity of hr capsule 00:00: 04:59 mouth in [place] 00 :00 the [facility] morning Branch for 7 days. tamsulosin 2021-07- No [id number] .4mg Take 1 [facility] 0.4 mg 24 0-07 10-15 capsule by ity of hr capsule 00:00: 04:59 mouth in [place] 00 :00 the Medical morning Branch for 7 days. tamsulosin 2021-07- No [id number] .4mg Take 1 [facility] 0.4 mg 24 0-07 10-15 capsule by ity of hr capsule 00:00: 04:59 mouth in [place] 00 :00 the Medical morning Branch for 7 days. tamsulosin 2021-07- No [id number] .4mg Take 1 [facility] 0.4 mg 24 0-07 10-15 capsule by ity of hr capsule 00:00: 04:59 mouth in [place] 00 :00 the Medical morning Branch for 7 days. tamsulosin 2021-2021- No [id number] .4mg Take 1 [facility] 0.4 mg 24 0-07 10-15 capsule by ity of hr capsule 00:00: 04:59 mouth in [place] 00 :00 the Medical morning Branch for 7 days. tamsulosin 2021-2021- No [id number] .4mg Take 1 [facility] 0.4 mg 24 0-07 10-15 capsule by ity of hr capsule 00:00: 04:59 mouth in [place] 00 :00 the Medical morning Branch for 7 days. atomoxetine 2021-2021- No 40mg Take 1 [facility] vers 40 mg 0-07 10-13 capsule by ity of capsule 00:00: 00:00 mouth in [place] 00 :00 the Medical morning. Branch atomoxetine 2021-2021- No 40mg Take 1 [facility] vers 40 mg 0-07 10-13 capsule by ity of capsule 00:00: 00:00 mouth in [place] 00 :00 the Medical morning. Branch atomoxetine 2021-2021- No 40mg Take 1 [facility] vers 40 mg 0-07 10-13 capsule by ity of capsule 00:00: 00:00 mouth in [place] 00 :00 the Medical morning. Branch atomoxetine 2021-2021- No 40mg Take 1 [facility] vers 40 mg 0-07 10-13 capsule by ity of capsule 00:00: 00:00 mouth in [place] 00 :00 the Medical morning. Branch atomoxetine 2021-2- No 40mg Take 1 [facility] vers 40 mg 0-07 10-13 capsule by ity of capsule 00:00: 00:00 mouth in [place] 00 :00 the Medical morning. Branch atomoxetine 2021-2- No 40mg Take 1 [facility] vers 40 mg 0-07 10-13 capsule by ity of capsule 00:00: 00:00 mouth in [place] 00 :00 the Medical morning. Branch atomoxetine 2021-2- No 40mg Take 1 [facility] vers 40 mg 0-07 10-13 capsule by ity of capsule 00:00: 00:00 mouth in [place] 00 :00 the Medical morning. Branch atomoxetine 2021-2021- No 40mg Take 1 [facility] vers 40 mg 0-07 10-13 capsule by ity of capsule 00:00: 00:00 mouth in [place] 00 :00 the Medical morning. Branch atomoxetine 2021-2- No 40mg Take 1 [facility] vers 40 mg 0-07 10-13 capsule by ity of capsule 00:00: 00:00 mouth in [place] 00 :00 the Medical morning. Branch atomoxetine 2021-2021- No 40mg Take 1 [facility] vers 40 mg 0-07 10-13 capsule by ity of capsule 00:00: 00:00 mouth in [place] 00 :00 the Medical morning. Branch atomoxetine 2021-2021- No 40mg Take 1 [facility] vers 40 mg 0-07 10-13 capsule by ity of capsule 00:00: 00:00 mouth in [place] 00 :00 the Medical morning. Branch atomoxetine 2021-2021- No 40mg Take 1 [facility] vers 40 mg 0-07 10-13 capsule by ity of capsule 00:00: 00:00 mouth in [place] 00 :00 the Medical morning. Branch atomoxetine 2021-2021- No 40mg Take 1 [facility] vers 40 mg 0-07 10-13 capsule by ity of capsule 00:00: 00:00 mouth in [place] 00 :00 the Medical morning. Branch atomoxetine 2021-2021- No 40mg Take 1 [facility] vers 40 mg 0-07 10-13 capsule by ity of capsule 00:00: 00:00 mouth in [place] 00 :00 the Medical morning. Branch atomoxetine 2021-2- No 40mg Take 1 [facility] vers 40 mg 0-07 10-13 capsule by ity of capsule 00:00: 00:00 mouth in [place] 00 :00 the Medical morning. Branch atomoxetine 2021-2- No 40mg Take 1 [facility] vers 40 mg 0-07 10-13 capsule by ity of capsule 00:00: 00:00 mouth in [place] 00 :00 the Medical morning. Branch atomoxetine 2021-2- No 40mg Take 1 [facility] vers 40 mg 0-07 10-13 capsule by ity of capsule 00:00: 00:00 mouth in [place] 00 :00 the Medical morning. Branch traZODone 2021-07 Yes 50mg 50 mg, Univer s (DESYREL) 0-06 Oral, QHS, ity of tablet 50 02:00: First dose [place] mg 00 on Mon Medical 04/06/22 at Branch 2100, Until Discontinu ed, Routine acetaminoph 2021-07 Yes [id number] 1000mg Take 2 [facility] en 500 mg 0-06 tablets by ity of tablet 00:00: mouth [place] 00 every 8 Medical (eight) Branch hours as needed for Pain. traZODone 2021-07 Yes 50mg Take 1 Univer s 50 mg 0-06 tablet by [facility] tablet 00:00: mouth at [place] 00 bedtime. [facility] methocarbam 2021-07 Yes [id number] 500mg Take 1 [facility] o[facility] 500 mg 0-06 tablet by [facility] f tablet 00:00: mouth 4 00 (four) Medical times Branch daily as needed (muscle spasms). ibuprofen 2021-07 Yes [id number] 600mg Take 1 [facility] 600 mg 0-06 tablet by [facility] tablet 00:00: mouth [place] 00 every 6 Medical (six) Branch hours as needed for Pain (scale 4-6). acetaminoph 2021-07 Yes [id number] 1000mg Take 2 [facility] en 500 mg 0-06 tablets by [facility] tablet 00:00: mouth [place] 00 every 8 Medical (eight) Branch hours as needed for Pain. traZODone 2021-07 Yes 50mg Take 1 [facility] 50 mg 0-06 tablet by [facility] tablet 00:00: mouth at [place] 00 bedtime. [facility] methocarbam 2021-07 Yes [id number] 500mg Take 1 [facility] oL 500 mg 0-06 tablet by [facility] f tablet 00:00: mouth 4 [place] 00 (four) Medical times Branch daily as needed (muscle spasms). ibuprofen 2021-07 Yes [id number] 600mg Take 1 [facility] 600 mg 0-06 tablet by [facility] tablet 00:00: mouth [place] 00 every 6 Medical (six) Branch hours as needed for Pain (scale 4-6). acetaminoph 2021-07 Yes [id number] 1000mg Take 2 [facility] en 500 mg 0-06 tablets by [facility] tablet 00:00: mouth [place] 00 every 8 Medical (eight) Branch hours as needed for Pain. traZODone 2021-07 Yes 50mg Take 1 [facility] 50 mg 0-06 tablet by [facility] tablet 00:00: mouth at [place] 00 bedtime. [facility] methocarbam 2021-07 Yes [id number] 500mg Take 1 [facility] oL 500 mg 0-06 tablet by [facility] f tablet 00:00: mouth 4 [place] 00 (four) Medical times Branch daily as needed (muscle spasms). ibuprofen 2021-07 Yes [id number] 600mg Take 1 [facility] 600 mg 0-06 tablet by [facility] tablet 00:00: mouth [place] 00 every 6 Medical (six) Branch hours as needed for Pain (scale 4-6). acetaminoph 2021-07 Yes [id number] 1000mg Take 2 [facility] en 500 mg 0-06 tablets by [facility] tablet 00:00: mouth [place] 00 every 8 Medical (eight) Branch hours as needed for Pain. traZODone 2021-07 Yes 50mg Take 1 [facility] 50 mg 0-06 tablet by [facility] tablet 00:00: mouth at [place] 00 bedtime. [facility] methocarbam 2021-07 Yes [id number] 500mg Take 1 [facility] oL 500 mg 0-06 tablet by [facility] f tablet 00:00: mouth 00 (four) Medical times Branch daily as needed (muscle spasms). ibuprofen 2021-07 Yes [id number] 600mg Take 1 [facility] 600 mg 0-06 tablet by [facility] tablet 00:00: mouth [place] 00 every 6 Medical (six) Branch hours as needed for Pain (scale 4-6). acetaminoph 2021-07 Yes [id number] 1000mg Take 2 [facility] 500 mg 0-06 tablets by [facility] tablet 00:00: mouth [place] 00 every 8 Medical (eight) Branch hours as needed for Pain. traZODone 2021-07 Yes 50mg Take 1 [facility] 50 mg 0-06 tablet by [facility] tablet 00:00: mouth at [place] 00 bedtime. [facility] methocarbam 2021-07 Yes [id number] 500mg Take 1 [facility] oL 500 mg 0-06 tablet by [facility] f tablet 00:00: mouth 4 00 (four) Medical times Branch daily as needed (muscle spasms). ibuprofen 2021-07 Yes [id number] 600mg Take 1 [facility] 600 mg 0-06 tablet by [facility] tablet 00:00: mouth [place] 00 every 6 Medical (six) Branch hours as needed for Pain (scale 4-6). acetaminoph 2021-07 Yes [id number] 1000mg Take 2 [facility] en 500 mg 0-06 tablets by [facility] tablet 00:00: mouth [place] 00 every 8 Medical (eight) Branch hours as needed for Pain. traZODone 2021-07 Yes 50mg Take 1 [facility] 50 mg 0-06 tablet by [facility] tablet 00:00: mouth at [place] 00 bedtime. [facility] methocarbam 2021-07 Yes [id number] 500mg Take 1 [facility] oL 500 mg 0-06 tablet by [facility] f tablet 00:00: mouth 4 00 (four) Medical times Branch daily as needed (muscle spasms). ibuprofen 2021-07 Yes [id number] 600mg Take 1 [facility] 600 mg 0-06 tablet by [facility] tablet 00:00: mouth [place] 00 every 6 Medical (six) Branch hours as needed for Pain (scale 4-6). acetaminoph 2021-07 Yes [id number] 1000mg Take 2 [facility] en 500 mg 0-06 tablets by [facility] tablet 00:00: mouth [place] 00 every 8 Medical (eight) Branch hours as needed for Pain. traZODone 2021-07 Yes 50mg Take 1 [facility] 50 mg 0-06 tablet by [facility] tablet 00:00: mouth at [place] 00 bedtime. [facility] methocarbam 2021-07 Yes [id number] 500mg Take 1 [facility] oL 500 mg 0-06 tablet by [facility] f tablet 00:00: mouth 00 (four) Medical times Branch daily as needed (muscle spasms). ibuprofen 2021-07 Yes [id number] 600mg Take 1 [facility] 600 mg 0-06 tablet by [facility] tablet 00:00: mouth [place] 00 every 6 Medical (six) Branch hours as needed for Pain (scale 4-6). acetaminoph 2021-07 Yes [id number] 1000mg Take 2 [facility] en 500 mg 0-06 tablets by [facility] tablet 00:00: mouth [place] 00 every 8 Medical (eight) Branch hours as needed for Pain. traZODone 2021-07 Yes 50mg Take 1 [facility] 50 mg 0-06 tablet by [facility] tablet 00:00: mouth at [place] 00 bedtime. [facility] methocarbam 2021-07 Yes [id number] 500mg Take 1 [facility] oL 500 mg 0-06 tablet by [facility] f tablet 00:00: mouth (four) Medical times Branch daily as needed (muscle spasms). ibuprofen 2021-07 Yes [id number] 600mg Take 1 [facility] 600 mg 0-06 tablet by [facility] tablet 00:00: mouth [place] 00 every 6 Medical (six) Branch hours as needed for Pain (scale 4-6). acetaminoph 2021-07 Yes [id number] 1000mg Take 2 [facility] en 500 mg 0-06 tablets by [facility] tablet 00:00: mouth [place] 00 every 8 Medical (eight) Branch hours as needed for Pain. traZODone 2021-07 Yes 50mg Take 1 [facility] 50 mg 0-06 tablet by [facility] tablet 00:00: mouth at [place] 00 bedtime. [facility] methocarbam 2021-07 Yes [id number] 500mg Take 1 [facility] o[facility] 500 mg 0-06 tablet by [facility] f tablet 00:00: mouth (four) Medical times Branch daily as needed (muscle spasms). ibuprofen 2021-07 Yes [id number] 600mg Take 1 [facility] 600 mg 0-06 tablet by [facility] tablet 00:00: mouth [place] 00 every 6 Medical (six) Branch hours as needed for Pain (scale 4-6). acetaminoph 2021-07 Yes [id number] 1000mg Take 2 [facility] 500 mg 0-06 tablets by [facility] tablet 00:00: mouth [place] 00 every 8 Medical (eight) Branch hours as needed for Pain. traZODone 2021-07 Yes 50mg Take 1 [facility] 50 mg 0-06 tablet by [facility] tablet 00:00: mouth at [place] 00 bedtime. [facility] methocarbam 2021-07 Yes [id number] 500mg Take 1 [facility] oL 500 mg 0-06 tablet by [facility] f tablet 00:00: mouth (four) Medical times Branch daily as needed (muscle spasms). ibuprofen 2021-07 Yes [id number] 600mg Take 1 [facility] 600 mg 0-06 tablet by [facility] tablet 00:00: mouth [place] 00 every 6 Medical (six) Branch hours as needed for Pain (scale 4-6). acetaminoph 2021-07 Yes [id number] 1000mg Take 2 [facility] 500 mg 0-06 tablets by [facility] tablet 00:00: mouth [place] 00 every 8 Medical (eight) Branch hours as needed for Pain. traZODone 2021-07 Yes 50mg Take 1 [facility] 50 mg 0-06 tablet by [facility] tablet 00:00: mouth at [place] 00 bedtime. [facility] methocarbam 2021-07 Yes [id number] 500mg Take 1 [facility] oL 500 mg 0-06 tablet by [facility] f tablet 00:00: mouth 4 00 (four) Medical times Branch daily as needed (muscle spasms). ibuprofen 2021-07 Yes [id number] 600mg Take 1 [facility] 600 mg 0-06 tablet by [facility] tablet 00:00: mouth [place] 00 every 6 Medical (six) Branch hours as needed for Pain (scale 4-6). acetaminoph 2021-07 Yes [id number] 1000mg Take 2 [facility] en 500 mg 0-06 tablets by [facility] tablet 00:00: mouth [place] 00 every 8 Medical (eight) Branch hours as needed for Pain. traZODone 2021-07 Yes 50mg Take 1 [facility] 50 mg 0-06 tablet by [facility] tablet 00:00: mouth at [place] 00 bedtime. [facility] methocarbam 2021-07 Yes [id number] 500mg Take 1 [facility] oL 500 mg 0-06 tablet by [facility] f tablet 00:00: mouth 4 (four) Medical times Branch daily as needed (muscle spasms). ibuprofen 2021-07 Yes [id number] 600mg Take 1 [facility] 600 mg 0-06 tablet by [facility] tablet 00:00: mouth [place] 00 every 6 Medical (six) Branch hours as needed for Pain (scale 4-6). acetaminoph 2021-07 Yes [id number] 1000mg Take 2 [facility] 500 mg 0-06 tablets by [facility] tablet 00:00: mouth [place] 00 every 8 Medical (eight) Branch hours as needed for Pain. traZODone 2021-07 Yes 50mg Take 1 [facility] 50 mg 0-06 tablet by [facility] tablet 00:00: mouth at [place] 00 bedtime. [facility] methocarbam 2021-07 Yes [id number] 500mg Take 1 [facility] o[facility] 500 mg 0-06 tablet by [facility] f tablet 00:00: mouth 4 00 (four) Medical times Branch daily as needed (muscle spasms). ibuprofen 2021-07 Yes [id number] 600mg Take 1 [facility] 600 mg 0-06 tablet by [facility] tablet 00:00: mouth [place] 00 every 6 Medical (six) Branch hours as needed for Pain (scale 4-6). acetaminoph 2021-07 Yes [id number] 1000mg Take 2 [facility] 500 mg 0-06 tablets by [facility] tablet 00:00: mouth [place] 00 every 8 Medical (eight) Branch hours as needed for Pain. traZODone 2021-07 Yes 50mg Take 1 [facility] 50 mg 0-06 tablet by [facility] tablet 00:00: mouth at [place] 00 bedtime. [facility] methocarbam 2021-07 Yes [id number] 500mg Take 1 [facility] o[facility] 500 mg 0-06 tablet by [facility] f tablet 00:00: mouth (four) Medical times Branch daily as needed (muscle spasms). ibuprofen 2021-07 Yes [id number] 600mg Take 1 [facility] 600 mg 0-06 tablet by [facility] tablet 00:00: mouth [place] 00 every 6 Medical (six) Branch hours as needed for Pain (scale 4-6). acetaminoph 2021-07 Yes [id number] 1000mg Take 2 [facility] 500 mg 0-06 tablets by [facility] tablet 00:00: mouth [place] 00 every 8 Medical (eight) Branch hours as needed for Pain. traZODone 2021-07 Yes 50mg Take 1 [facility] 50 mg 0-06 tablet by [facility] tablet 00:00: mouth at [place] 00 bedtime. [facility] methocarbam 2021-07 Yes [id number] 500mg Take 1 [facility] o[facility] 500 mg 0-06 tablet by [facility] f tablet 00:00: mouth (four) Medical times Branch daily as needed (muscle spasms). ibuprofen 2021-07 Yes [id number] 600mg Take 1 [facility] 600 mg 0-06 tablet by [facility] tablet 00:00: mouth [place] 00 every 6 Medical (six) Branch hours as needed for Pain (scale 4-6). acetaminoph 2021-07 Yes [id number] 1000mg Take 2 [facility] 500 mg 0-06 tablets by [facility] tablet 00:00: mouth [place] 00 every 8 Medical (eight) Branch hours as needed for Pain. traZODone 2021-07 Yes 50mg Take 1 [facility] 50 mg 0-06 tablet by [facility] tablet 00:00: mouth at [place] 00 bedtime. [facility] methocarbam 2021-07 Yes [id number] 500mg Take 1 [facility] oL 500 mg 0-06 tablet by [facility] f tablet 00:00: mouth 4 00 (four) Medical times Branch daily as needed (muscle spasms). ibuprofen 2021-07 Yes [id number] 600mg Take 1 [facility] 600 mg 0-06 tablet by [facility] tablet 00:00: mouth [place] 00 every 6 Medical (six) Branch hours as needed for Pain (scale 4-6). acetaminoph 2021-07 Yes [id number] 1000mg Take 2 [facility] en 500 mg 0-06 tablets by [facility] tablet 00:00: mouth [place] 00 every 8 Medical (eight) Branch hours as needed for Pain. traZODone 2021-07 Yes 50mg Take 1 [facility] 50 mg 0-06 tablet by [facility] tablet 00:00: mouth at [place] 00 bedtime. [facility] methocarbam 2021-07 Yes [id number] 500mg Take 1 [facility] oL 500 mg 0-06 tablet by [facility] f tablet 00:00: mouth (four) Medical times Branch daily as needed (muscle spasms). ibuprofen 2021-07 Yes [id number] 600mg Take 1 [facility] 600 mg 0-06 tablet by [facility] tablet 00:00: mouth [place] 00 every 6 Medical (six) Branch hours as needed for Pain (scale 4-6). acetaminoph 2021-07 Yes [id number] 1000mg Take 2 [facility] en 500 mg 0-06 tablets by [facility] tablet 00:00: mouth [place] 00 every 8 Medical (eight) Branch hours as needed for Pain. traZODone 2021-07 Yes 50mg Take 1 [facility] 50 mg 0-06 tablet by [facility] tablet 00:00: mouth at [place] 00 bedtime. [facility] methocarbam 2021-07 Yes [id number] 500mg Take 1 [facility] oL 500 mg 0-06 tablet by [facility] f tablet 00:00: mouth 4 00 (four) Medical times Branch daily as needed (muscle spasms). ibuprofen 2021-07 Yes [id number] 600mg Take 1 [facility] 600 mg 0-06 tablet by [facility] tablet 00:00: mouth [place] 00 every 6 Medical (six) Branch hours as needed for Pain (scale 4-6). acetaminoph 2021-07 Yes [id number] 1000mg Take 2 [facility] en 500 mg 0-06 tablets by [facility] tablet 00:00: mouth [place] 00 every 8 Medical (eight) Branch hours as needed for Pain. traZODone 2021-07 Yes 50mg Take 1 [facility] 50 mg 0-06 tablet by [facility] tablet 00:00: mouth at [place] 00 bedtime. [facility] methocarbam 2021-07 Yes [id number] 500mg Take 1 [facility] oL 500 mg 0-06 tablet by [facility] f tablet 00:00: mouth 4 00 (four) Medical times Branch daily as needed (muscle spasms). ibuprofen 2021-07 Yes [id number] 600mg Take 1 [facility] 600 mg 0-06 tablet by [facility] tablet 00:00: mouth [place] 00 every 6 Medical (six) Branch hours as needed for Pain (scale 4-6). acetaminoph 2021-07 Yes [id number] 1000mg Take 2 [facility] en 500 mg 0-06 tablets by [facility] tablet 00:00: mouth [place] 00 every 8 Medical (eight) Branch hours as needed for Pain. traZODone 2021-07 Yes 50mg Take 1 [facility] 50 mg 0-06 tablet by [facility] tablet 00:00: mouth at [place] 00 bedtime. [facility] methocarbam 2021-07 Yes [id number] 500mg Take 1 [facility] oL 500 mg 0-06 tablet by [facility] f tablet 00:00: mouth 4 00 (four) Medical times Branch daily as needed (muscle spasms). ibuprofen 2021-07 Yes [id number] 600mg Take 1 [facility] 600 mg 0-06 tablet by [facility] tablet 00:00: mouth [place] 00 every 6 Medical (six) Branch hours as needed for Pain (scale 4-6). acetaminoph 2021-07 Yes [id number] 1000mg Take 2 [facility] en 500 mg 0-06 tablets by [facility] tablet 00:00: mouth [place] 00 every 8 Medical (eight) Branch hours as needed for Pain. traZODone 2021-07 Yes 50mg Take 1 [facility] 50 mg 0-06 tablet by [facility] tablet 00:00: mouth at [place] 00 bedtime. [facility] methocarbam 2021-07 Yes [id number] 500mg Take 1 [facility] oL 500 mg 0-06 tablet by [facility] f tablet 00:00: mouth 4 00 (four) Medical times Branch daily as needed (muscle spasms). ibuprofen 2021-07 Yes [id number] 600mg Take 1 [facility] 600 mg 0-06 tablet by [facility] tablet 00:00: mouth [place] 00 every 6 Medical (six) Branch hours as needed for Pain (scale 4-6). acetaminoph 2021-07 Yes [id number] 1000mg Take 2 [facility] en 500 mg 0-06 tablets by [facility] tablet 00:00: mouth [place] 00 every 8 Medical (eight) Branch hours as needed for Pain. traZODone 2021-07 Yes 50mg Take 1 [facility] 50 mg 0-06 tablet by [facility] tablet 00:00: mouth at [place] 00 bedtime. [facility] methocarbam 2021-07 Yes [id number] 500mg Take 1 [facility] o[facility] 500 mg 0-06 tablet by [facility] f tablet 00:00: mouth (four) Medical times Branch daily as needed (muscle spasms). ibuprofen 2021-07 Yes [id number] 600mg Take 1 [facility] 600 mg 0-06 tablet by [facility] tablet 00:00: mouth [place] 00 every 6 Medical (six) Branch hours as needed for Pain (scale 4-6). acetaminoph 2021-07 Yes [id number] 1000mg Take 2 [facility] en 500 mg 0-06 tablets by [facility] tablet 00:00: mouth [place] 00 every 8 Medical (eight) Branch hours as needed for Pain. traZODone 2021-07 Yes 50mg Take 1 [facility] 50 mg 0-06 tablet by [facility] tablet 00:00: mouth at [place] 00 bedtime. [facility] methocarbam 2021-07 Yes [id number] 500mg Take 1 [facility] oL 500 mg 0-06 tablet by [facility] f tablet 00:00: mouth 4 00 (four) Medical times Branch daily as needed (muscle spasms). ibuprofen 2021-07 Yes [id number] 600mg Take 1 [facility] 600 mg 0-06 tablet by [facility] tablet 00:00: mouth [place] 00 every 6 Medical (six) Branch hours as needed for Pain (scale 4-6). acetaminoph 2021-07 Yes [id number] 1000mg Take 2 [facility] en 500 mg 0-06 tablets by [facility] tablet 00:00: mouth [place] 00 every 8 Medical (eight) Branch hours as needed for Pain. traZODone 2021-07 Yes 50mg Take 1 [facility] 50 mg 0-06 tablet by [facility] tablet 00:00: mouth at [place] 00 bedtime. [facility] methocarbam 2021-07 Yes [id number] 500mg Take 1 [facility] oL 500 mg 0-06 tablet by [facility] f tablet 00:00: mouth 4 00 (four) Medical times Branch daily as needed (muscle spasms). ibuprofen 2021-07 Yes [id number] 600mg Take 1 [facility] 600 mg 0-06 tablet by [facility] tablet 00:00: mouth [place] 00 every 6 Medical (six) Branch hours as needed for Pain (scale 4-6). acetaminoph 2021-07 Yes [id number] 1000mg Take 2 [facility] en 500 mg 0-06 tablets by [facility] tablet 00:00: mouth [place] 00 every 8 Medical (eight) Branch hours as needed for Pain. traZODone 2021-07 Yes 50mg Take 1 [facility] 50 mg 0-06 tablet by [facility] tablet 00:00: mouth at [place] 00 bedtime. [facility] methocarbam 2021-07 Yes [id number] 500mg Take 1 [facility] oL 500 mg 0-06 tablet by [facility] f tablet 00:00: mouth 00 (four) Medical times Branch daily as needed (muscle spasms). ibuprofen 2021-07 Yes [id number] 600mg Take 1 [facility] 600 mg 0-06 tablet by [facility] tablet 00:00: mouth [place] 00 every 6 Medical (six) Branch hours as needed for Pain (scale 4-6). acetaminoph 2021-07 Yes [id number] 1000mg Take 2 [facility] en 500 mg 0-06 tablets by [facility] tablet 00:00: mouth [place] 00 every 8 Medical (eight) Branch hours as needed for Pain. traZODone 2021-07 Yes 50mg Take 1 [facility] 50 mg 0-06 tablet by [facility] tablet 00:00: mouth at [place] 00 bedtime. [facility] methocarbam 2021-07 Yes [id number] 500mg Take 1 [facility] o[facility] 500 mg 0-06 tablet by [facility] o f tablet 00:00: mouth 4 00 (four) Medical times Branch daily as needed (muscle spasms). ibuprofen 2021-07 Yes [id number] 600mg Take 1 [facility] 600 mg 0-06 tablet by [facility] tablet 00:00: mouth [place] 00 every 6 Medical (six) Branch hours as needed for Pain (scale 4-6). acetaminoph 2021-07 Yes [id number] 1000mg Take 2 [facility] en 500 mg 0-06 tablets by [facility] tablet 00:00: mouth [place] 00 every 8 Medical (eight) Branch hours as needed for Pain. traZODone 2021-07 Yes 50mg Take 1 [facility] 50 mg 0-06 tablet by [facility] tablet 00:00: mouth at [place] 00 bedtime. [facility] methocarbam 2021-07 Yes [id number] 500mg Take 1 [facility] oL 500 mg 0-06 tablet by [facility] f tablet 00:00: mouth (four) Medical times Branch daily as needed (muscle spasms). ibuprofen 2021-07 Yes [id number] 600mg Take 1 [facility] 600 mg 0-06 tablet by [facility] tablet 00:00: mouth [place] 00 every 6 Medical (six) Branch hours as needed for Pain (scale 4-6). acetaminoph 2021-07 Yes [id number] 1000mg Take 2 [facility] en 500 mg 0-06 tablets by [facility] tablet 00:00: mouth [place] 00 every 8 Medical (eight) Branch hours as needed for Pain. traZODone 2021-07 Yes 50mg Take 1 [facility] 50 mg 0-06 tablet by [facility] tablet 00:00: mouth at [place] 00 bedtime. [facility] methocarbam 2021-07 Yes [id number] 500mg Take 1 [facility] o[facility] 500 mg 0-06 tablet by [facility] o f tablet 00:00: mouth 4 00 (four) Medical times Branch daily as needed (muscle spasms). ibuprofen 2021-07 Yes [id number] 600mg Take 1 [facility] 600 mg 0-06 tablet by [facility] tablet 00:00: mouth [place] 00 every 6 Medical (six) Branch hours as needed for Pain (scale 4-6). acetaminoph 2021-07 Yes [id number] 1000mg Take 2 [facility] en 500 mg 0-06 tablets by [facility] tablet 00:00: mouth [place] 00 every 8 Medical (eight) Branch hours as needed for Pain. traZODone 2021-07 Yes 50mg Take 1 [facility] 50 mg 0-06 tablet by [facility] tablet 00:00: mouth at [place] 00 bedtime. [facility] methocarbam 2021-07 Yes [id number] 500mg Take 1 [facility] oL 500 mg 0-06 tablet by [facility] o f tablet 00:00: mouth 4 [place] 00 (four) Medical times Branch daily as needed (muscle spasms). ibuprofen 2021-07 Yes [id number] 600mg Take 1 [facility] 600 mg 0-06 tablet by [facility] tablet 00:00: mouth [place] 00 every 6 Medical (six) Branch hours as needed for Pain (scale 4-6). acetaminoph 2021-07- No [id number] 1000mg Take 2 [facility] en 500 mg 0-06 11-29 tablets by [facility] tablet 00:00: 00:00 mouth [place] 00 :00 every 8 Medical (eight) Branch hours as needed for Pain. traZODone 2021-07- No 50mg Take 1 [facility] 50 mg 0-06 11-29 tablet by [facility] tablet 00:00: 00:00 mouth at [place] 00 :00 bedtime. [facility] methocarbam 2021-07- No [id number] 500mg Take 1 [facility] o[facility] 500 mg 0-06 11-29 tablet by [facility] tablet 00:00: 00:00 mouth 4 [place] 00 :00 (four) Medical times Branch daily as needed (muscle spasms). ibuprofen 2021-07- No [id number] 600mg Take 1 [facility] 600 mg 0-06 11-29 tablet by [facility] tablet 00:00: 00:00 mouth [place] 00 :00 every 6 Medical (six) Branch hours as needed for Pain (scale 4-6). acetaminoph 2021-07- No [id number] 1000mg Take 2 [facility] en 500 mg 0-06 11-29 tablets by [facility] tablet 00:00: 00:00 mouth [place] 00 :00 every 8 Medical (eight) Branch hours as needed for Pain. traZODone 2021-07- No 50mg Take 1 [facility] 50 mg 0-06 11-29 tablet by [facility] tablet 00:00: 00:00 mouth at [place] 00 :00 bedtime. [facility] methocarbam 2021-07- No [id number] 500mg Take 1 [facility] o[facility] 500 mg 0-06 -29 tablet by [facility] tablet 00:00: 00:00 mouth 4 [place] 00 :00 (four) Medical times Branch daily as needed (muscle spasms). ibuprofen 2021-07- No [id number] 600mg Take 1 [facility] 600 mg 0-06 -29 tablet by [facility] tablet 00:00: 00:00 mouth [place] 00 :00 every 6 Medical (six) Branch hours as needed for Pain (scale 4-6). acetaminoph 2021-07- No [id number] 1000mg Take 2 [facility] en 500 mg 0-06 -29 tablets by [facility] tablet 00:00: 00:00 mouth [place] 00 :00 every 8 Medical (eight) Branch hours as needed for Pain. traZODone 2021-07- No 50mg Take 1 [facility] 50 mg 0-12 11-29 tablet by [facility] tablet 00:00: 00:00 mouth at [place] 00 :00 bedtime. [facility] methocarbam 2021-07- No [id number] 500mg Take 1 [facility] oL 500 mg 0-12 11-29 tablet by [facility] tablet 00:00: 00:00 mouth 4 [place] 00 :00 (four) Medical times Branch daily as needed (muscle spasms). ibuprofen 2021-07- No [id number] 600mg Take 1 [facility] 600 mg 0-12 11-29 tablet by [facility] tablet 00:00: 00:00 mouth [place] 00 :00 every 6 Medical (six) Branch hours as needed for Pain (scale 4-6). acetaminoph 2021-07- No [id number] 1000mg Take 2 [facility] en 500 mg 0-06 11-29 tablets by [facility] tablet 00:00: 00:00 mouth [place] 00 :00 every 8 Medical (eight) Branch hours as needed for Pain. traZODone 2021-07- No 50mg Take 1 [facility] 50 mg 0-06 -29 tablet by [facility] tablet 00:00: 00:00 mouth at [place] 00 :00 bedtime. [facility] methocarbam 2021-07- No [id number] 500mg Take 1 [facility] oL 500 mg 0-12 11-29 tablet by [facility] tablet 00:00: 00:00 mouth 4 [place] 00 :00 (four) Medical times Branch daily as needed (muscle spasms). ibuprofen 2021-07- No [id number] 600mg Take 1 [facility] 600 mg 0-06 11-29 tablet by [facility] tablet 00:00: 00:00 mouth [place] 00 :00 every 6 Medical (six) Branch hours as needed for Pain (scale 4-6). acetaminoph 2021-07- No [id number] 1000mg Take 2 [facility] en 500 mg 0-06 -29 tablets by [facility] tablet 00:00: 00:00 mouth [place] 00 :00 every 8 Medical (eight) Branch hours as needed for Pain. traZODone 2021-07- No 50mg Take 1 [facility] 50 mg 0-12 11-29 tablet by [facility] tablet 00:00: 00:00 mouth at [place] 00 :00 bedtime. [facility] methocarbam 2021-07- No [id number] 500mg Take 1 [facility] oL 500 mg 0-12 11-29 tablet by [facility] tablet 00:00: 00:00 mouth 4 [place] 00 :00 (four) Medical times Branch daily as needed (muscle spasms). ibuprofen 2021-07 No [id number] 600mg Take 1 [facility] 600 mg 0-12 11-29 tablet by [facility] tablet 00:00: 00:00 mouth [place] 00 :00 every 6 Medical (six) Branch hours as needed for Pain (scale 4-6). acetaminoph 2021-07- No [id number] 1000mg Take 2 [facility] en 500 mg 0-06 -29 tablets by [facility] tablet 00:00: 00:00 mouth [place] 00 :00 every 8 Medical (eight) Branch hours as needed for Pain. traZODone 2021-07- No 50mg Take 1 [facility] 50 mg 0-06 -29 tablet by [facility] tablet 00:00: 00:00 mouth at [place] 00 :00 bedtime. [facility] methocarbam 2021-07- No [id number] 500mg Take 1 [facility] oL 500 mg 0-06 -29 tablet by [facility] tablet 00:00: 00:00 mouth 4 [place] 00 :00 (four) Medical times Branch daily as needed (muscle spasms). ibuprofen 2021-07- [id number] 600mg Take 1 [facility] 600 mg 005-31 tablet by [facility] tablet 00:00: 00:00 mouth [place] 00 :00 every 6 Medical (six) Branch hours as needed for Pain (scale 4-6). atomoxetine 2021-07 Yes 40mg 40 mg, [facility] ers (STRATTERA) 0-05 Oral, [facility] of capsule 40 16:45: DAILY, [place] mg 00 First dose Medical on Mon Branch 04/06/22 at 1145, Until Discontinu ed, Routine
anthropology faculty member approving Non-formul freddie medication : [...] Until Discontinu ed, Routine, Pain (scale 7-10)<b r>anthropology faculty member approving Restricted medication : KEAGAN [...] on Mon Medical 1,000 mg 04/06/22 at [facility] h 1015, Until Discontinu ed, Routine tamsulosin [...] on Mon Medical 1,000 mg 04/06/22 at [facility] h 0800, Until Discontinu ed, Routine enoxaparin 2021-07 Yes 30mg 30 mg, [facility] rs (LOVENOX) 0-05 Subcutaneo ity of injection 01:00: us, Q12H, [place] as 30 mg 00 First dose Medical on Mon [place] 04/05/22 at 2000, Until Discontinu ed, Routine methocarbam 2021-07- No 1000mg 1,000 mg, [facility] oL 0-04 10-05 Intravenou ity of (ROBAXIN) 19:00: 11:05 s, Q8H, [place] injection 00 :13 First dose Medi torito 1,000 mg on Mon04/05/22 at 1400, Until Discontinu ed, Routine acetaminoph 2021-07- No 1000mg 1,000 mg, Univers en ADULT [...] No 2mg 2 mg, Slow Univers mg/mL) 0 10- IV Push, ity of injection 2 23:22: 14:14 Q4HPRN, [place] mg 51 :08 Starting Medical on Mon04/04/22 at 1822, Until Mon04/05/22 at 0914, Routine, Pain (scale 7-10) HYDROcodone 2021-07 No 1{tbl} 1 tablet, Univers -acetaminop 0-03 10-04 Oral, ity of hen (NORCO 23:22: 14:14 Q6HPRN, [place] 5) 5-325 mg 51 :08 Starting Medi [place] tablet 1 on Mon [place] tablet 04/04/22 at 1822, Until Mon04/05/22 at 0914, Routine, Pain (scale 4-6) FENTanyl PF 2021-07 No 50ug 50 mcg, Un [place] (SUBLIMAZE 0- 10-03 Slow IV ity o f (PF)) 22:00: 21:05 Push, [place] injection 00 :00 ONCE, 1 Medical 50 mcg dose, On Branch Mon04/04/22 at 1700, Routine FENTanyl PF 2022-1 2022- No 50ug 50 mcg, Un [place] (SUBLIMAZE 004-04 Slow IV ity o f (PF)) 20:30: 19:32 Push, [place] injection 00 :00 ONCE, 1 Medical 50 mcg dose, On Branch 04/04/22 at 1530, Routine ondansetron 2021-07- No 4mg 4 mg, Slow Univers (ZOFRAN 004-04 IV Push, ity of (PF)) 19:45: 19:32 ONCE, 1 [place] injection 4 00 :00 dose, On Medi torito mg Mon Branch 04/04/22 at 1445, ARLEN iopamidol 2021-07- No [id number] 80mL 80 mL, Univers (ISOVUE 004-04 Intravenou ity o f 370-500 mL) 19:00: 18:49 s, ONCE, 1 [place] injection 00 :00 dose, On Medica l 80 mL Mon [place] 04/04/22 at 1400, Routine NaCl 0.9% No 1000mL at 999 Uni vers (NS) bolus 04-01-30 mL/hr, ity of infusion 05:15: 06:27 1,000 mL, [place] 1,000 mL 00 :00 IV Medical Infusion, Branch ONCE, 1 dose, On Mon04/01/22 at 0015, STAT ondansetron 2021- No 4mg 4 mg, Slow [facility] (ZOFRAN 04-0130 IV Push, ity of (PF)) 04:15: 04:36 ONCE, 1 [place] injection 4 00 :00 dose, On Medi torito mg [place] Branch 03/31/22 at 2315, ARLEN ARIPiprazol Yes [id number] 300mg 300 mg by Univers e (ABILIFY 9-15 Intramuscu ity of [facility]) 00:00: lar route [place] 300 mg sers 00 once every Me dical month. Branch ARIPiprazol 0 Yes 300mg 300 mg by Univers e (ABILIFY 9-15 Intramuscu ity of [facility]) 00:00: lar route [place] 300 mg sers 00 once every Me dical month. Branch ARIPiprazol 0 Yes [id number] 300mg 300 mg by Univers e (ABILIFY 9-15 Intramuscu ity of [place]) 00:00: lar route [place] 300 mg sers 00 once every Me dical month. Branch ARIPiprazol 2-0 Yes 300mg 300 mg by Univers e (ABILIFY 9-15 Intramuscu ity of [place]) 00:00: lar route [place] 300 mg sers 00 once every Me dical month. Branch ARIPiprazol 2022-0 Yes [id number] 300mg 300 mg by Univers e (ABILIFY 9-15 Intramuscu ity of [place]) 00:00: lar route [place] 300 mg sers 00 once every Me dical month. Branch ARIPiprazol 2-0 Yes 300mg 300 mg by Univers e (ABILIFY 9-15 Intramuscu ity of [place]) 00:00: lar route [place] 300 mg sers 00 once every Me dical month. Branch ARIPiprazol 2-0 Yes [id number] 300mg 300 mg by Univers e (ABILIFY 9-15 Intramuscu ity of [place]) 00:00: lar route [place] 300 mg sers 00 once every Me dical month. Branch ARIPiprazol 2-0 Yes 300mg 300 mg by Univers e (ABILIFY 9-15 Intramuscu ity of [place]) 00:00: lar route [place] 300 mg sers 00 once every Me dical month. Branch ARIPiprazol 2-0 Yes [id number] 300mg 300 mg by Univers e (ABILIFY 9-15 Intramuscu ity of [place]) 00:00: lar route [place] 300 mg sers 00 once every Me dical month. Branch ARIPiprazol 2-0 Yes 300mg 300 mg by Univers e (ABILIFY 9-15 Intramuscu ity of [place]) 00:00: lar route [place] 300 mg sers 00 once every Me dical month. Branch ARIPiprazol 2022-0 Yes [id number] 300mg 300 mg by Univers e (ABILIFY 9-15 Intramuscu ity of [place]) 00:00: lar route [place] 300 mg sers 00 once every Me dical month. Branch ARIPiprazol 2022-0 Yes 300mg 300 mg by Univers e (ABILIFY 9-15 Intramuscu ity of [place]) 00:00: lar route [place] 300 mg sers 00 once every Me dical month. Branch ARIPiprazol 2-0 Yes [id number] 300mg 300 mg by Univers e (ABILIFY 9-15 Intramuscu ity of [place]) 00:00: lar route [place] 300 mg sers 00 once every Me dical month. Branch ARIPiprazol 2021-0 Yes 300mg 300 mg by Univers e (ABILIFY 9-15 Intramuscu ity of [place]) 00:00: lar route [place] 300 mg sers 00 once every Me dical month. Branch ARIPiprazol 2021-0 Yes [id number] 300mg 300 mg by Univers e (ABILIFY 9-15 Intramuscu ity of [place]) 00:00: lar route [place] 300 mg sers 00 once every Me dical month. Branch ARIPiprazol 2021-0 Yes [id number] 300mg 300 mg by Univers e (ABILIFY 9-15 Intramuscu ity of [place]) 00:00: lar route [place] 300 mg sers 00 once every Me dical month. Branch ARIPiprazol 2021-0 Yes [id number] 300mg 300 mg by Univers e (ABILIFY 9-15 Intramuscu ity of [place]) 00:00: lar route [place] 300 mg sers 00 once every Me dical month. Branch ARIPiprazol 2-0 Yes [id number] 300mg 300 mg by Univers e (ABILIFY 9-15 Intramuscu ity of [place]) 00:00: lar route [place] 300 mg sers 00 once every Me dical month. Branch ARIPiprazol 2-0 Yes [id number] 300mg 300 mg by Univers e (ABILIFY 9-15 Intramuscu ity of [place]) 00:00: lar route [place] 300 mg sers 00 once every Me dical month. Branch ARIPiprazol 2-0 Yes [id number] 300mg 300 mg by Univers e (ABILIFY 9-15 Intramuscu ity of [place]) 00:00: lar route [place] 300 mg sers 00 once every Me dical month. Branch ARIPiprazol 2021-0 2022- No 300mg 300 mg by Univers e (ABILIFY 03-17 Intramuscu it y of [facility]) 00:00: 00:00 lar route [place] 300 mg sers 00 :00 once every Me dical month. Branch ARIPiprazol 2021-0 2022- No 300mg 300 mg by Univers e (03-17 Intramuscu it y of [facility]) 00:00: 00:00 lar route [place] 300 mg sers 00 :00 once every Me dical month. Branch ARIPiprazol 2021-0 2- No 300mg 300 mg by Univers e (03-17 Intramuscu it y of [facility]) 00:00: 00:00 lar route [place] 300 mg sers 00 :00 once every Me dical month. Branch ARIPiprazol 2021-0 2- No 300mg 300 mg by Univers e (03-17 Intramuscu it y of [facility]) 00:00: 00:00 lar route [place] 300 mg sers 00 :00 once every Me dical month. Branch ARIPiprazol 2021-0 2- No 300mg 300 mg by Univers e (03-17 Intramuscu it y of [facility]) 00:00: 00:00 lar route [place] 300 mg sers 00 :00 once every Me dical month. Branch ARIPiprazol 2021-0 2022- No 300mg 300 mg by Univers e (ABI03-17 Intramuscu it y of [facility]) 00:00: 00:00 lar route [place] 300 mg sers 00 :00 once every Me dical month. Branch ARIPiprazol 2-0 2022- No 300mg 300 mg by Univers e (LIY 03-17 Intramuscu it y of [facility]) 00:00: 00:00 lar route [place] [...] e (ABILIFY 03-17 Intramuscu it y of [facility]) 00:00: 00:00 lar route [place] 300 mg sers 00 :00 once every Me dical month. Branch ARIPiprazol 2021- No 300mg 300 mg by Univers e (ABILIFY 03-17 Intramuscu it y of [facility]) 00:00: 00:00 lar route [place] 300 mg sers 00 :00 once every Me dical month. Branch ARIPiprazol 2021- No 300mg 300 mg by Univers e (ABILIFY 03-17 Intramuscu it y of [facility]) 00:00: 00:00 lar route [place] 300 mg sers 00 :00 once every Me dical month. Branch ARIPiprazol 2021- No [id number] 10mg Take 1 U nivers e 10 mg 9-08 10-09 tablet by ity of tablet 00:00: 04:59 mouth in [place] 00 :00 the [facility] for 30 days. ARIPiprazol 2021-2021- No [id number] 10mg Take 1 U nivers e 10 mg 9-08 10-09 tablet by ity of tablet 00:00: 04:59 mouth in [place] 00 :00 the [facility] for 30 days. ARIPiprazol 2021-2- No [id number] 10mg Take 1 U nivers e 10 mg 9-08 10-09 tablet by ity of tablet 00:00: 04:59 mouth in [place] 00 :00 the [facility] morning [place] for 30 days. ARIPiprazol 2021-2021- No [id number] 10mg Take 1 U nivers e 10 mg 9-08 10-09 tablet by ity of tablet 00:00: 04:59 mouth in [place] 00 :00 the [facility] for 30 days. ARIPiprazol 2021-2021- No [id number] 10mg Take 1 U nivers e 10 mg 9-08 10-09 tablet by ity of tablet 00:00: 04:59 mouth in [place] 00 :00 the [facility] for 30 days. ARIPiprazol 2021-2021- No [id number] 10mg Take 1 U nivers e 10 mg 9-08 10-09 tablet by ity of tablet 00:00: 04:59 mouth in [place] 00 :00 the [facility] for 30 days. ARIPiprazol 2021-2- No [id number] 10mg Take 1 U nivers e 10 mg 9-08 10-09 tablet by ity of tablet 00:00: 04:59 mouth in [place] 00 :00 the [facility] for 30 days. ARIPiprazol 2021-2021- No [id number] 10mg Take 1 U nivers e 10 mg 9-08 10-09 tablet by ity of tablet 00:00: 04:59 mouth in [place] 00 :00 the [facility] for 30 days. ARIPiprazol 2021-2021- No [id number] 10mg Take 1 U nivers e 10 mg 9-08 10-09 tablet by ity of tablet 00:00: 04:59 mouth in [place] 00 :00 [facility] for 30 days. ARIPiprazol 2021-2021- No [id number] 10mg Take 1 U nivers e 10 mg 9-08 10-09 tablet by ity of tablet 00:00: 04:59 mouth in [place] 00 :00 [facility] for 30 days. ARIPiprazol 2021-2021- No [id number] 10mg Take 1 U nivers e 10 mg 9-08 10-09 tablet by ity of tablet 00:00: 04:59 mouth in [place] 00 :00 [facility] for 30 days. ARIPiprazol 2021-2021- No [id number] 10mg Take 1 U nivers e 10 mg 9-08 10-09 tablet by ity of tablet 00:00: 04:59 mouth in [place] 00 :00 [facility] for 30 days. ARIPiprazol 2021-2021- No [id number] 10mg Take 1 U nivers e 10 mg 9-08 10-09 tablet by ity of tablet 00:00: 04:59 mouth in [place] 00 :00 [facility] for 30 days. ARIPiprazol 2021-0 2- No [id number] 10mg Take 1 U nivers e 10 mg 9-08 10-09 tablet by ity of tablet 00:00: 04:59 mouth in [place] 00 :00 the [facility] morning Branch for 30 days. ARIPiprazol 2021- No [id number] 10mg Take 1 U nivers e 10 mg 9-08 10-09 tablet by ity of tablet 00:00: 04:59 mouth in [place] 00 :00 the [facility] morning Branch for 30 days. ARIPiprazol 2021- No [id number] 10mg Take 1 U nivers e 10 mg 9-08 10-09 tablet by ity of tablet 00:00: 04:59 mouth in [place] 00 :00 the [facility] Branch for 30 days. ARIPiprazol 2021- No [id number] 10mg Take 1 U nivers e 10 mg 9-08 10-09 tablet by ity of tablet 00:00: 04:59 mouth in [place] 00 :00 the [facility] for 30 days. ARIPiprazol 2021- No [id number] 10mg Take 1 U nivers e 10 mg 9-08 10-09 tablet by ity of tablet 00:00: 04:59 mouth in [place] 00 :00 the [facility] for 30 days. ARIPiprazol 2021- No [id number] 10mg Take 1 U nivers e 10 mg 9-08 10-09 tablet by ity of tablet 00:00: 04:59 mouth in [place] 00 :00 the [facility] for 30 days. ARIPiprazol 2021- No [id number] 10mg Take 1 U nivers e 10 mg 9-08 10-09 tablet by ity of tablet 00:00: 04:59 mouth in [place] 00 :00 the [facility] for 30 days. ARIPiprazol 2021-2021- No [id number] 10mg Take 1 U nivers e 10 mg 9-08 10-09 tablet by ity of tablet 00:00: 04:59 mouth in [place] 00 :00 the [facility] for 30 days. ARIPiprazol 2021-2021- No [id number] 10mg Take 1 U nivers e 10 mg 9-08 10-09 tablet by ity of tablet 00:00: 04:59 mouth in [place] 00 :00 the [facility] morning Branch for 30 days. ARIPiprazol 2021- No [id number] 10mg Take 1 U nivers e 10 mg 9-08 10-09 tablet by ity of tablet 00:00: 04:59 mouth in [place] 00 :00 [facility] for 30 days. ARIPiprazol 2021-2021- No [id number] 10mg Take 1 U nivers e 10 mg 9-08 10-09 tablet by ity of tablet 00:00: 04:59 mouth in [place] 00 :00 [facility] for 30 days. ARIPiprazol 2021-2021- No [id number] 10mg Take 1 U nivers e 10 mg 9-08 10-09 tablet by ity of tablet 00:00: 04:59 mouth in [place] 00 :00 [facility] for 30 days. ARIPiprazol 2021-2021- No [id number] 10mg Take 1 U nivers e 10 mg 9-08 10-09 tablet by ity of tablet 00:00: 04:59 mouth in [place] 00 :00 [facility] for 30 days. ARIPiprazol 2021-2021- No [id number] 10mg Take 1 U nivers e 10 mg 9-08 10-09 tablet by ity of tablet 00:00: 04:59 mouth in [place] 00 :00 [facility] for 30 days. ARIPiprazol 2021- No [id number] 10mg Take 1 U nivers e 10 mg 9-08 10-09 tablet by ity of tablet 00:00: 04:59 mouth in [place] 00 :00 [facility] for 30 days. ARIPiprazol 2021- No [id number] 300mg 300 mg by Univers e (ABILIFY 03-09 Intramuscu it y of [facility]) 00:00: 05:59 lar route [place] 300 mg sers 00 :00 once every Me dical month for Branch 90 days. ARIPiprazol 2021- No [id number] 300mg 300 mg by Univers e (ABILIFY 03-0915 Intramuscu it y of [facility]) 00:00: 00:00 lar route [place] 300 mg sers 00 :00 once every Me dical month for Branch 90 days. ARIPiprazol 2021-2021- No [id number] 300mg 300 mg by Univers e (ABILI 03-09 Intramuscu it y of [facility]) 00:00: 00:00 lar route [place] 300 mg sers 00 :00 once every Me dical month for Branch 90 days. ARIPiprazol 2021-2021- No [id number] 300mg 300 mg by [facility] y of [facility]) 00:00: 00:00 lar route [place] 300 mg sers 00 :00 once every Me dical month for Branch 90 days. ARIPiprazol 2021-2021- No [id number] 300mg 300 mg by [facility] ([facility] Intr[facility] y [facility]) 00:00: 00:00 lar route [place] 300 mg sers 00 :00 once every Me dical month for Branch 90 days. ARIPiprazol 2021-2021- No [id number] 300mg 300 mg by Univers e (ABILI 03-09 Intramuscu it y [facility]) 00:00: 00:00 lar route [place] 300 mg sers 00 :00 once every Me dical month for Branch 90 days. QUEtiapine 2021-2021- No [id number] 50mg Take 1 Un [place] 50 mg 01-17 tablet by ity of tablet 00:00: 00:00 mouth in [place] 00 :00 the Medical morning Branch and 1 tablet in the evening. Do all this for 60 days. QUEtiapine 2021-2021- No [id number] 50mg Take 1 [place] 50 mg 01-17- tablet by ity of tablet 00:00: 00:00 mouth in [place] 00 :00 the Medical morning Branch and 1 tablet in the evening. Do all this for 60 days. QUEtiapine 2021-0 2021- No [id number] 50mg Take 1 [place] 50 mg 01-17 tablet by ity of tablet 00:00: 00:00 mouth in [place] 00 :00 the Medical morning Branch and 1 tablet in the evening. Do all this for 60 days. QUEtiapine 2022-0 2022- No [id number] 50mg Take 1 [place] 50 mg 01-17 tablet by ity of tablet 00:00: 00:00 mouth in [place] 00 :00 the Medical morning Branch and 1 tablet in the evening. Do all this for 60 days. QUEtiapine 2021- No [id number] 50mg Take 1 [place] 50 mg 01-17 tablet by ity of tablet 00:00: 00:00 mouth in [place] 00 :00 the Medical morning Branch and 1 tablet in the evening. Do all this for 60 days. lithium 2021- No [id number] 300mg Take 1 U nivers carbonate 12-07 tablet by ity of CR 300 mg 00:00: 04:59 mouth at [place] SR tablet 00 :00 bedtime Medical for 90 Branch days. lithium No [id number] 450mg Take 1 U nivers carbonate 12-07 tablet by ity of CR 450 mg 00:00: 04:59 mouth [place] SR tablet 00 :00 every Medical morning Branch for 90 days. lithium No [id number] 300mg Take 1 U nivers carbonate 12-07 tablet by ity of CR 300 mg 00:00: 04:59 mouth at [place] SR tablet 00 :00 bedtime Medical for 90 Branch days. lithium No [id number] 450mg Take 1 U nivers carbonate 12-07 tablet by ity of CR 450 mg 00:00: 04:59 mouth [place] SR tablet 00 :00 every Medical morning Branch for 90 days. lithium No [id number] 300mg Take 1 U nivers carbonate 12-07 tablet by ity of CR 300 mg 00:00: 04:59 mouth at [place] SR tablet 00 :00 bedtime Medical for 90 Branch days. lithium No [id number] 450mg Take 1 U nivers carbonate 12-07 tablet by ity of CR 450 mg 00:00: 04:59 mouth [place] SR tablet 00 :00 every Medical morning Branch for 90 days. lithium No [id number] 300mg Take 1 U nivers carbonate 12-07 tablet by ity of CR 300 mg 00:00: 04:59 mouth at [place] SR tablet 00 :00 bedtime Medical for 90 Branch days. lithium 2021- No [id number] 450mg Take 1 U nivers carbonate 12-07 tablet by ity of CR 450 mg 00:00: 04:59 mouth [place] SR tablet 00 :00 every Medical morning Branch for 90 days. lithium 2021- No [id number] 300mg Take 1 U nivers carbonate 12-07 tablet by ity of CR 300 mg 00:00: 04:59 mouth at [place] SR tablet 00 :00 bedtime Medical for 90 Branch days. lithium 2021- No [id number] 450mg Take 1 U nivers carbonate 12-07 tablet by ity of CR 450 mg 00:00: 04:59 mouth [place] SR tablet 00 :00 every Medical morning Branch for 90 days. miSOPROStoL Yes [id number] 200ug Take 1 Univers 200 mcg 4-29 tablet by ity of tablet 00:00: mouth SEE-INSTRU Medical CTIONS. Branch Take one tab the night before and one tab the morning of procedure miSOPROStoL 2021-0 Yes [id number] 200ug Take 1 Univers 200 mcg 4-29 tablet by ity of tablet 00:00: mouth SEE-INSTRU Medical CTIONS. Branch Take one tab the night before and one tab the morning of procedure miSOPROStoL 2021-0 Yes [id number] 200ug Take 1 Univers 200 mcg 4-29 tablet by ity of tablet 00:00: mouth SEE-INSTRU Medical CTIONS. Branch Take one tab the night before and one tab the morning of procedure miSOPROStoL 2021-0 Yes [id number] 200ug Take 1 Univers 200 mcg 4-29 tablet by ity of tablet 00:00: mouth SEE-INSTRU Medical CTIONS. Branch Take one tab the night before and one tab the morning of procedure miSOPROStoL 2021-0 Yes [id number] 200ug Take 1 Univers 200 mcg 4-29 tablet by ity of tablet 00:00: mouth SEE-INSTRU Medical CTIONS. Branch Take one tab the night before and one tab the morning of procedure miSOPROStoL Yes [id number] 200ug Take 1 Univers 200 mcg 4-29 tablet by ity of tablet 00:00: mouth [place] 00 SEE-INSTRU Medical CTIONS. Branch Take one tab the night before and one tab the morning of procedure miSOPROStoL Yes [id number] 200ug Take 1 Univers 200 mcg 4-29 tablet by ity of tablet 00:00: mouth [place] 00 SEE-INSTRU Medical CTIONS. Branch Take one tab the night before and one tab the morning of procedure miSOPROStoL Yes [id number] 200ug Take 1 Univers 200 mcg 4-29 tablet by ity of tablet 00:00: mouth [place] 00 SEE-INSTRU Medical CTIONS. Branch Take one tab the night before and one tab the morning of procedure miSOPROStoL Yes [id number] 200ug Take 1 Univers 200 mcg 4-29 tablet by ity of tablet 00:00: mouth [place] 00 SEE-INSTRU Medical CTIONS. Branch Take one tab the night before and one tab the morning of procedure miSOPROStoL 2021- No [id number] 200ug Take 1 Univers 200 mcg 4-29 10-06 tablet by ity of tablet 00:00: 00:00 [facility] [place] 00 :00 SEE-INSTRU Medical CTIONS. Branch Take one tab the night before and one tab the morning of procedure miSOPROStoL 2021- No [id number] 200ug Take 1 Univers 200 mcg 4-29 10-06 tablet by ity of tablet 00:00: 00:00 [facility] [place] 00 :00 SEE-INSTRU Medical CTIONS. Branch Take one tab the night before and one tab the morning of procedure miSOPROStoL 2021- No [id number] 200ug Take 1 Univers 200 mcg 4-29 10-06 tablet by ity of tablet 00:00: 00:00 [facility] [place] 00 :00 SEE-INSTRU Medical CTIONS. Branch Take one tab the night before and one tab the morning of procedure miSOPROStoL 2021- No [id number] 200ug Take 1 Univers 200 mcg 4-29 10-06 tablet by ity of tablet 00:00: 00:00 [facility] [place] 00 :00 SEE-INSTRU Medical CTIONS. Branch Take one tab the night before and one tab the morning of procedure miSOPROStoL 2021- No [id number] 200ug Take 1 Univers 200 mcg 4-29 10-06 tablet by ity of tablet 00:00: 00:00 [facility] 00 :00 SEE-INSTRU Medical CTIONS. Branch Take one tab the night before and one tab the morning of procedure miSOPROStoL 2021- No [id number] 200ug Take 1 Univers 200 mcg 4-29 10-06 tablet by ity of tablet 00:00: 00:00 [facility] 00 :00 SEE-INSTRU Medical CTIONS. Branch Take one tab the night before and one tab the morning of procedure miSOPROStoL 2021- No [id number] 200ug Take 1 Univers 200 mcg 4-29 10-06 tablet by ity of tablet 00:00: 00:00 [facility] 00 :00 SEE-INSTRU Medical CTIONS. Branch Take one tab the night before and one tab the morning of procedure miSOPROStoL 2021- No [id number] 200ug Take 1 Univers 200 mcg 4-29 10-06 tablet by ity of tablet 00:00: 00:00 [facility] 00 :00 SEE-INSTRU Medical CTIONS. Branch Take one tab the night before and one tab the morning of procedure miSOPROStoL 2021- No [id number] 200ug Take 1 Univers 200 mcg 4-29 10-06 tablet by ity of tablet 00:00: 00:00 [facility] 00 :00 SEE-INSTRU Medical CTIONS. Branch Take one tab the night before and one tab the morning of procedure miSOPROStoL 2021- No [id number] 200ug Take 1 Univers 200 mcg 4-29 10-06 tablet by ity of tablet 00:00: 00:00 [facility] 00 :00 SEE-INSTRU Medical CTIONS. Branch Take one tab the night before and one tab the morning of procedure miSOPROStoL 2021- No [id number] 200ug Take 1 Univers 200 mcg 4-29 10-06 tablet by ity of tablet 00:00: 00:00 [facility] 00 :00 SEE-INSTRU Medical CTIONS. Branch Take one tab the night before and one tab the morning of procedure miSOPROStoL 2021- No [id number] 200ug Take 1 Univers 200 mcg 4-29 10-06 tablet by ity of tablet 00:00: 00:00 mouth [place] 00 :00 SEE-INSTRU Medical CTIONS. Branch Take one tab the night before and one tab the morning of procedure miSOPROStoL 2021- No [id number] 200ug Take 1 Univers 200 mcg 4-29 10-06 tablet by ity of tablet 00:00: 00:00 [facility] [place] 00 :00 SEE-INSTRU Medical CTIONS. Branch Take one tab the night before and one tab the morning of procedure miSOPROStoL 2021- No [id number] 200ug Take 1 Univers 200 mcg 4-29 10-06 tablet by ity of tablet 00:00: 00:00 [facility] [place] 00 :00 SEE-INSTRU Medical CTIONS. Branch Take one tab the night before and one tab the morning of procedure miSOPROStoL 2021- No [id number] 200ug Take 1 Univers 200 mcg 4-29 10-06 tablet by ity of tablet 00:00: 00:00 [facility] 00 :00 SEE-INSTRU Medical CTIONS. Branch Take one tab the night before and one tab the morning of procedure miSOPROStoL 2021- No [id number] 200ug Take 1 Univers 200 mcg 4-29 10-06 tablet by ity of tablet 00:00: 00:00 [facility] 00 :00 SEE-INSTRU Medical CTIONS. Branch Take one tab the night before and one tab the morning of procedure miSOPROStoL 2021- No [id number] 200ug Take 1 Univers 200 mcg 4-29 10-06 tablet by ity of tablet 00:00: 00:00 [facility] 00 :00 SEE-INSTRU Medical CTIONS. Branch Take one tab the night before and one tab the morning of procedure miSOPROStoL 2021- No [id number] 200ug Take 1 Univers 200 mcg 4-29 10-06 tablet by ity of tablet 00:00: 00:00 [facility] 00 :00 SEE-INSTRU Medical CTIONS. Branch Take one tab the night before and one tab the morning of procedure Immunizations Ordered Immunization Filled Immunization Date Status Commen ts Source Name Name SARS-COV-2 COVID-19 2022-03-17 Completed Unive rsity of MIKE-SUCROSE VACCINE 00:00:00 [facility] 12 YRS+, BIVALENT Branch 0.3ML, IM, (PFIZER ARITA TOP BOOSTER) SARS-COV-2 COVID-19 2022-03-17 Completed Unive rsity of MIKE-SUCROSE VACCINE 00:00:00 [facility] 12 YRS+, BIVALENT Branch 0.3ML, IM, (PFIZER ARITA TOP BOOSTER) SARS-COV-2 COVID-19 2022-03-17 Completed Unive rsity of MIKE-SUCROSE VACCINE 00:00:00 [facility] 12 YRS+, BIVALENT Branch 0.3ML, IM, (PFIZER ARITA TOP BOOSTER) SARS-COV-2 COVID-19 2022-03-17 Completed Unive rsity of MIKE-SUCROSE VACCINE 00:00:00 [facility] 12 YRS+, BIVALENT Branch 0.3ML, IM, (PFIZER ARITA TOP BOOSTER) SARS-COV-2 COVID-19 2022-03-17 Completed Unive rsity of MIKE-SUCROSE VACCINE 00:00:00 [facility] 12 YRS+, BIVALENT Branch 0.3ML, IM, (PFIZER ARITA TOP BOOSTER) SARS-COV-2 COVID-19 2022-03-17 Completed Unive rsity of MIKE-SUCROSE VACCINE 00:00:00 [facility] 12 YRS+, BIVALENT Branch 0.3ML, IM, (PFIZER ARITA TOP BOOSTER) SARS-COV-2 COVID-19 2022-03-17 Completed Unive rsity of MIKE-SUCROSE VACCINE 00:00:00 [facility] 12 YRS+, BIVALENT Branch 0.3ML, IM, (PFIZER ARITA TOP BOOSTER) SARS-COV-2 COVID-19 2022-03-17 Completed Unive rsity of MIKE-SUCROSE VACCINE 00:00:00 [facility] 14 YRS+, BIVALENT Branch 0.3ML, IM, (PFIZER ARITA TOP BOOSTER) SARS-COV-2 COVID-19 2022-03-17 Completed Unive [facility] of MIKE-SUCROSE VACCINE 00:00:00 [facility] 14 YRS+, BIVALENT Branch 0.3ML, IM, (PFIZER ARITA TOP BOOSTER) SARS-COV-2 COVID-19 2022-03-17 Completed [facility]ive [facility] of MIKE-SUCROSE VACCINE 00:00:00 [facility] 14 YRS+, BIVALENT Branch 0.3ML, IM, (PFIZER ARITA TOP BOOSTER) SARS-COV-2 COVID-19 2022-03-17 Completed Unive [facility] of MIKE-SUCROSE VACCINE 00:00:00 [facility] 14 YRS+, BIVALENT Branch 0.3ML, IM, (PFIZER ARITA TOP BOOSTER) SARS-COV-2 COVID-19 2022-03-17 Completed Unive [facility] of MIKE-SUCROSE VACCINE 00:00:00 [facility] 14 YRS+, BIVALENT Branch 0.3ML, IM, (PFIZER ARITA TOP BOOSTER) SARS-COV-2 COVID-19 2022-03-17 Completed Unive [facility] of MIKE-SUCROSE VACCINE 00:00:00 [facility] 14 YRS+, BIVALENT Branch 0.3ML, IM, (PFIZER ARITA TOP BOOSTER) SARS-COV-2 COVID-19 2022-03-17 Completed [facility]ive [facility] of MIKE-SUCROSE VACCINE 00:00:00 [facility] 14 YRS+, BIVALENT Branch 0.3ML, IM, (PFIZER ARITA TOP BOOSTER) SARS-COV-2 COVID-19 2022-03-17 Completed [facility]ive [facility] of MIKE-SUCROSE VACCINE 00:00:00 [facility] 14 YRS+, BIVALENT Branch 0.3ML, IM, (PFIZER ARITA TOP BOOSTER) SARS-COV-2 COVID-19 2022-03-17 Completed Unive [facility] of MIKE-SUCROSE VACCINE 00:00:00 [facility] 14 YRS+, BIVALENT Branch 0.3ML, IM, (PFIZER ARITA TOP BOOSTER) SARS-COV-2 COVID-19 2022-03-17 Completed [facility]ive [facility] of MIKE-SUCROSE VACCINE 00:00:00 [facility] 14 YRS+, BIVALENT Branch 0.3ML, IM, (PFIZER ARITA TOP BOOSTER) SARS-COV-2 COVID-19 2022-03-17 Completed Unive [facility] of MIKE-SUCROSE VACCINE 00:00:00 [facility] 14 YRS+, BIVALENT Branch 0.3ML, IM, (PFIZER ARITA TOP BOOSTER) SARS-COV-2 COVID-19 2022-03-17 Completed Unive [facility] of MIKE-SUCROSE VACCINE 00:00:00 [facility] 14 YRS+, BIVALENT Branch 0.3ML, IM, (PFIZER ARITA TOP BOOSTER) SARS-COV-2 COVID-19 2022-03-17 Completed Unive [facility] of MIKE-SUCROSE VACCINE 00:00:00 [facility] 14 YRS+, BIVALENT Branch 0.3ML, IM, (PFIZER ARITA TOP BOOSTER) SARS-COV-2 COVID-19 2022-03-17 Completed Unive [facility] of MIKE-SUCROSE VACCINE 00:00:00 [facility] 14 YRS+, BIVALENT Branch 0.3ML, IM, (PFIZER ARITA TOP BOOSTER) SARS-COV-2 COVID-19 2022-03-17 Completed [facility]ive [facility] of MIKE-SUCROSE VACCINE 00:00:00 [facility] 14 YRS+, BIVALENT Branch 0.3ML, IM, (PFIZER ARITA TOP BOOSTER) SARS-COV-2 COVID-19 2022-03-17 Completed [facility]ive [facility] of MIKE-SUCROSE VACCINE 00:00:00 [facility] 14 YRS+, BIVALENT Branch 0.3ML, IM, (PFIZER ARITA TOP BOOSTER) SARS-COV-2 COVID-19 2022-03-17 Completed Unive [facility] of MIKE-SUCROSE VACCINE 00:00:00 [facility] 14 YRS+, BIVALENT Branch 0.3ML, IM, (PFIZER ARITA TOP BOOSTER) SARS-COV-2 COVID-19 2022-03-17 Completed Unive [facility] of MIKE-SUCROSE VACCINE 00:00:00 [facility] 14 YRS+, BIVALENT Branch 0.3ML, IM, (PFIZER ARITA TOP BOOSTER) SARS-COV-2 COVID-19 2022-03-17 Completed Unive [facility] of MIKE-SUCROSE VACCINE 00:00:00 [facility] 14 YRS+, BIVALENT Branch 0.3ML, IM, (PFIZER ARITA TOP BOOSTER) SARS-COV-2 COVID-19 2022-03-17 Completed Unive [facility] of MIKE-SUCROSE VACCINE 00:00:00 [facility] 14 YRS+, BIVALENT Branch 0.3ML, IM, (PFIZER ARITA TOP BOOSTER) SARS-COV-2 COVID-19 2022-03-17 Completed Unive [facility] of MIKE-SUCROSE VACCINE 00:00:00 [facility] 14 YRS+, BIVALENT Branch 0.3ML, IM, (PFIZER ARITA TOP BOOSTER) SARS-COV-2 COVID-19 2022-03-17 Completed [facility]ive [facility] of MIKE-SUCROSE VACCINE 00:00:00 [facility] 14 YRS+, BIVALENT Branch 0.3ML, IM, (PFIZER ARITA TOP BOOSTER) SARS-COV-2 COVID-19 2022-03-17 Completed Unive [facility] of MIKE-SUCROSE VACCINE 00:00:00 [facility] 14 YRS+, BIVALENT Branch 0.3ML, IM, (PFIZER ARITA TOP BOOSTER) SARS-COV-2 COVID-19 2022-03-17 Completed Unive [facility] of MIKE-SUCROSE VACCINE 00:00:00 [facility] 14 YRS+, BIVALENT Branch 0.3ML, IM, (PFIZER ARITA TOP BOOSTER) SARS-COV-2 COVID-19 2022-03-17 Completed Unive [facility] of MIKE-SUCROSE VACCINE 00:00:00 [facility] 14 YRS+, BIVALENT Branch 0.3ML, IM, (PFIZER ARITA TOP BOOSTER) SARS-COV-2 COVID-19 2022-03-17 Completed Unive [facility]ity of MIKE-SUCROSE VACCINE 00:00:00 [facility] 14 YRS+, BIVALENT Branch 0.3ML, IM, (PFIZER ARITA TOP BOOSTER) SARS-COV-2 COVID-19 2022-03-17 Completed Unive rsity of MIKE-SUCROSE VACCINE 00:00:00 [facility] 14 YRS+, BIVALENT Branch 0.3ML, IM, (PFIZER ARITA TOP BOOSTER) SARS-COV-2 COVID-19 2022-03-17 Completed Unive [facility] of MIKE-SUCROSE VACCINE 00:00:00 [facility] 14 YRS+, BIVALENT Branch 0.3ML, IM, (PFIZER ARITA TOP BOOSTER) SARS-COV-2 COVID-19 2022-03-17 Completed Unive [facility] of MIKE-SUCROSE VACCINE 00:00:00 [facility] 14 YRS+, BIVALENT Branch 0.3ML, IM, (PFIZER ARITA TOP BOOSTER) SARS-COV-2 COVID-19 2022-03-17 Completed Unive [facility] of MIKE-SUCROSE VACCINE 00:00:00 [facility] 14 YRS+, BIVALENT Branch 0.3ML, IM, (PFIZER ARITA TOP BOOSTER) SARS-COV-2 COVID-19 2022-03-17 Completed Unive [facility] of MIKE-SUCROSE VACCINE 00:00:00 [facility] 14 YRS+, BIVALENT Branch 0.3ML, IM, (PFIZER ARITA TOP BOOSTER) SARS-COV-2 COVID-19 2022-03-17 Completed Unive [facility] of MIKE-SUCROSE VACCINE 00:00:00 [facility] 14 YRS+, BIVALENT Branch 0.3ML, IM, (PFIZER ARITA TOP BOOSTER) SARS-COV-2 COVID-19 2022-03-17 Completed Unive [facility] of MIKE-SUCROSE VACCINE 00:00:00 [facility] 14 YRS+, BIVALENT Branch 0.3ML, IM, (PFIZER ARITA TOP BOOSTER) SARS-COV-2 COVID-19 2022-03-17 Completed Unive [facility] of MIKE-SUCROSE VACCINE 00:00:00 [facility] 14 YRS+, BIVALENT Branch 0.3ML, IM, (PFIZER ARITA TOP BOOSTER) SARS-COV-2 COVID-19 2022-03-17 Completed Unive rsity of MIKE-SUCROSE VACCINE 00:00:00 [facility] 14 YRS+, BIVALENT Branch 0.3ML, IM, (PFIZER ARITA TOP BOOSTER) SARS-COV-2 COVID-19 2022-03-17 Completed Unive [facility] of MIKE-SUCROSE VACCINE 00:00:00 [facility] 14 YRS+, BIVALENT Branch 0.3ML, IM, (PFIZER ARITA TOP BOOSTER) SARS-COV-2 COVID-19 2022-03-17 Completed Unive rsity of MIKE-SUCROSE VACCINE 00:00:00 [facility] 14 YRS+, BIVALENT Branch 0.3ML, IM, (PFIZER ARITA TOP BOOSTER) SARS-COV-2 COVID-19 2022-03-17 Completed Unive [facility] of MIKE-SUCROSE VACCINE 00:00:00 [facility] 14 YRS+, BIVALENT Branch 0.3ML, IM, (PFIZER ARITA TOP BOOSTER) SARS-COV-2 COVID-19 2022-03-17 Completed Unive [facility]ity of MIKE-SUCROSE VACCINE 00:00:00 [facility] 14 YRS+, BIVALENT Branch 0.3ML, IM, (PFIZER ARITA TOP BOOSTER) SARS-COV-2 COVID-19 2022-03-17 Completed Unive [facility] of MIKE-SUCROSE VACCINE 00:00:00 [facility] 14 YRS+, BIVALENT Branch 0.3ML, IM, (PFIZER ARITA TOP BOOSTER) SARS-COV-2 COVID-19 2022-03-17 Completed Unive [facility] of MIKE-SUCROSE VACCINE 00:00:00 [facility] 14 YRS+, BIVALENT Branch 0.3ML, IM, (PFIZER ARITA TOP BOOSTER) SARS-COV-2 COVID-19 2022-03-17 Completed Unive rs[facility] of IMKE-SUCROSE VACCINE 00:00:00 [facility] 14 YRS+, [...] Completed Un[facility] MIKE-SUCROSE VACCINE 00:00:00 [facility] BIVALENT Branch 0.3ML, IM, (PFIZER ARITA TOP BOOSTER) SARS-COV-2 COVID-19 2021-06-24 Completed Unive rsity of PFIZER VACCINE 00:00:00 [facility] SARS-COV-2 COVID-19 2021-06-24 Completed Unive rsity of PFIZER VACCINE 00:00:00 [facility] SARS-COV-2 COVID-19 2021-06-24 Completed Unive rsity of PFIZER VACCINE 00:00:00 [facility] SARS-COV-2 COVID-19 2021-06-24 Completed Unive rsity of PFIZER VACCINE 00:00:00 [facility] SARS-COV-2 COVID-19 2021-06-24 Completed Unive rsity of PFIZER VACCINE 00:00:00 [facility] SARS-COV-2 COVID-19 2021-06-24 Completed Unive rsity of PFIZER VACCINE 00:00:00 [facility] SARS-COV-2 COVID-19 2021-06-24 Completed Unive rsity of PFIZER VACCINE 00:00:00 [facility] SARS-COV-2 COVID-19 2021-06-24 Completed Unive rsity of PFIZER VACCINE 00:00:00 [facility] SARS-COV-2 COVID-19 2021-06-24 Completed Unive rsity of PFIZER VACCINE 00:00:00 [facility] SARS-COV-2 COVID-19 2021-06-24 Completed Unive rsity of PFIZER VACCINE 00:00:00 [facility] SARS-COV-2 COVID-19 2021-06-24 Completed Unive rsity of PFIZER VACCINE 00:00:00 [facility] SARS-COV-2 COVID-19 2021-06-24 Completed Unive rsity of PFIZER VACCINE 00:00:00 [facility] SARS-COV-2 COVID-19 2021-06-24 Completed Unive rsity of PFIZER VACCINE 00:00:00 [facility] SARS-COV-2 COVID-19 2021-06-24 Completed Unive rsity of PFIZER VACCINE 00:00:00 [facility] SARS-COV-2 COVID-19 2021-06-24 Completed [...] Completed Unive rsity of PFIZER VACCINE 00:00:00 [facility] SARS-COV-2 COVID-19 2021-06-24 Completed [...] Completed Unive rsity of PFIZER VACCINE 00:00:00 [facility] SARS-COV-2 COVID-19 2021-06-24 Completed Unive rsity of PFIZER VACCINE 00:00:00 [facility] SARS-COV-2 COVID-19 2021-06-24 Completed [facility]ive rs[facility] of PFIZER VACCINE 00:00:00 [facility] SARS-COV-2 COVID-19 2021-06-24 Completed Unive rsity of PFIZER VACCINE 00:00:00 [facility] SARS-COV-2 COVID-19 2021-06-24 Completed Unive rsity of PFIZER VACCINE 00:00:00 [facility] SARS-COV-2 COVID-19 2021-06-24 Completed Unive rsity of PFIZER VACCINE 00:00:00 [facility] SARS-COV-2 COVID-19 2021-06-24 Completed Unive rsity of PFIZER VACCINE 00:00:00 [facility] SARS-COV-2 COVID-19 2021-06-24 Completed Unive rsity of PFIZER VACCINE 00:00:00 [facility] SARS-COV-2 COVID-19 2021-06-24 Completed Unive rsity of PFIZER VACCINE 00:00:00 [facility] SARS-COV-2 COVID-19 2021-06-24 Completed Unive rsity of PFIZER VACCINE 00:00:00 [facility] SARS-COV-2 COVID-19 2021-06-24 Completed Unive rsity of PFIZER VACCINE 00:00:00 [facility] SARS-COV-2 COVID-19 2021-06-24 Completed Unive rsity of PFIZER VACCINE 00:00:00 [facility] SARS-COV-2 COVID-19 2021-06-24 Completed Unive rsity of PFIZER VACCINE 00:00:00 [facility] SARS-COV-2 COVID-19 2021-06-24 Completed Unive rsity of PFIZER VACCINE 00:00:00 [facility] SARS-COV-2 COVID-19 2021-06-24 Completed Unive rsity of PFIZER VACCINE 00:00:00 [facility] SARS-COV-2 COVID-19 2021-06-24 Completed Unive rsity of PFIZER VACCINE 00:00:00 [facility] SARS-COV-2 COVID-19 2021-06-24 Completed Unive rsity of PFIZER VACCINE 00:00:00 [facility] SARS-COV-2 COVID-19 2021-06-24 Completed Unive rs[facility] of PFIZER VACCINE 00:00:00 [facility] SARS-COV-2 COVID-19 2021-06-24 Completed [facility]ive rsity of PFIZER VACCINE 00:00:00 [facility] SARS-COV-2 COVID-19 2021-06-24 Completed [facility]ive rs[facility] of PFIZER VACCINE 00:00:00 [facility] SARS-COV-2 COVID-19 2021-06-24 Completed [facility]ive rs[facility] of PFIZER VACCINE 00:00:00 [facility] SARS-COV-2 COVID-19 2021-06-24 Completed [facility] rs[facility] of PFIZER VACCINE 00:00:00 [facility] SARS-COV-2 COVID-19 2021-06-24 Completed Unive rsity of PFIZER VACCINE 00:00:00 [facility] SARS-COV-2 COVID-19 2021-06-24 Completed [facility]ive rs[facility] of PFIZER VACCINE 00:00:00 [facility] SARS-COV-2 COVID-19 2021-06-24 Completed Unive rsity of PFIZER VACCINE 00:00:00 [facility] SARS-COV-2 COVID-19 2021-06-24 Completed [facility]ive rsity of PFIZER VACCINE 00:00:00 [facility] SARS-COV-2 COVID-19 2021-06-24 Completed [facility] rs[facility] of PFIZER VACCINE 00:00:00 [facility] SARS-COV-2 COVID-19 2021-06-24 Completed [facility]ive rsity of PFIZER VACCINE 00:00:00 [facility] SARS-COV-2 COVID-19 2021-06-24 Completed [facility]ive rsity of PFIZER VACCINE 00:00:00 [facility] SARS-COV-2 COVID-19 2020-11-21 Completed Unive rsity of PFIZER VACCINE 00:00:00 [facility] SARS-COV-2 COVID-19 2020-11-21 Completed Unive rsity of PFIZER VACCINE 00:00:00 [facility] SARS-COV-2 COVID-19 2020-11-21 Completed Unive rsity of PFIZER VACCINE 00:00:00 [facility] SARS-COV-2 COVID-19 2020-11-21 Completed [facility]ive rsity of PFIZER VACCINE 00:00:00 [facility] SARS-COV-2 COVID-19 2020-11-21 Completed [facility]ive rsity of PFIZER VACCINE 00:00:00 [facility] SARS-COV-2 COVID-19 2020-11-21 Completed [facility]ive rs[facility] of PFIZER VACCINE 00:00:00 [facility] SARS-COV-2 COVID-19 2020-11-21 Completed [facility]ive rsity of PFIZER VACCINE 00:00:00 [facility] SARS-COV-2 COVID-19 2020-11-21 Completed [facility]ive rsity of PFIZER VACCINE 00:00:00 [facility] SARS-COV-2 COVID-19 2020-11-21 Completed [facility]ive rs[facility] of PFIZER VACCINE 00:00:00 [facility] SARS-COV-2 COVID-19 2020-11-21 Completed Unive rsity of PFIZER VACCINE 00:00:00 [facility] SARS-COV-2 COVID-19 2020-11-21 Completed [facility]ive rsity of PFIZER VACCINE 00:00:00 [facility] SARS-COV-2 COVID-19 2020-11-21 Completed [facility]ive rsity of PFIZER VACCINE 00:00:00 [facility] SARS-COV-2 COVID-19 2020-11-21 Completed [facility]ive rsity of PFIZER VACCINE 00:00:00 [facility] SARS-COV-2 COVID-19 2020-11-21 Completed [facility]ive rsity of PFIZER VACCINE 00:00:00 [facility] SARS-COV-2 COVID-19 2020-11-21 Completed [facility]ive rs[facility] of PFIZER VACCINE 00:00:00 [facility] SARS-COV-2 COVID-19 2020-11-21 Completed [facility]ive rsity of PFIZER VACCINE 00:00:00 [facility] SARS-COV-2 COVID-19 2020-11-21 Completed [facility] of PFIZER VACCINE 00:00:00 [facility] SARS-COV-2 COVID-19 2020-11-21 Completed [facility]ive [facility] of PFIZER VACCINE 00:00:00 [facility] SARS-COV-2 COVID-19 2020-11-21 Completed [facility] rs[facility] of PFIZER VACCINE 00:00:00 [facility] SARS-COV-2 COVID-19 2020-11-21 Completed [facility] of PFIZER VACCINE 00:00:00 [facility] SARS-COV-2 COVID-19 2020-11-21 Completed [facility] of PFIZER VACCINE 00:00:00 [facility] SARS-COV-2 COVID-19 2020-11-21 Completed [facility] of PFIZER VACCINE 00:00:00 [facility] SARS-COV-2 COVID-19 2020-11-21 Completed [facility] of PFIZER VACCINE 00:00:00 [facility] SARS-COV-2 COVID-19 2020-11-21 Completed [facility] of PFIZER VACCINE 00:00:00 [facility] SARS-COV-2 COVID-19 2020-11-21 Completed [facility] rs[facility] of PFIZER VACCINE 00:00:00 [facility] SARS-COV-2 COVID-19 2020-11-21 Completed [facility] of PFIZER VACCINE 00:00:00 [facility] SARS-COV-2 COVID-19 2020-11-21 Completed [facility] of PFIZER VACCINE 00:00:00 [facility] SARS-COV-2 COVID-19 2020-11-21 Completed [facility] of PFIZER VACCINE 00:00:00 [facility] SARS-COV-2 COVID-19 2020-11-21 Completed [facility]ive rsity of PFIZER VACCINE 00:00:00 [facility] SARS-COV-2 COVID-19 2020-11-21 Completed [facility]ive rsity of PFIZER VACCINE 00:00:00 [facility] SARS-COV-2 COVID-19 2020-11-21 Completed [facility] rsity of PFIZER VACCINE 00:00:00 [facility] SARS-COV-2 COVID-19 2020-11-21 Completed [facility] of PFIZER VACCINE 00:00:00 [facility] SARS-COV-2 COVID-19 2020-11-21 Completed [facility] rs[facility] of PFIZER VACCINE 00:00:00 [facility] SARS-COV-2 COVID-19 2020-11-21 Completed [facility] of PFIZER VACCINE 00:00:00 [facility] SARS-COV-2 COVID-19 2020-11-21 Completed [facility] rs[facility] of PFIZER VACCINE 00:00:00 [facility] SARS-COV-2 COVID-19 2020-11-21 Completed [facility] of PFIZER VACCINE 00:00:00 [facility] SARS-COV-2 COVID-19 2020-11-21 Completed [facility] of PFIZER VACCINE 00:00:00 [facility] SARS-COV-2 COVID-19 2020-11-21 Completed [facility] of PFIZER VACCINE 00:00:00 [facility] SARS-COV-2 COVID-19 2020-11-21 Completed [facility] of PFIZER VACCINE 00:00:00 [facility] SARS-COV-2 COVID-19 2020-11-21 Completed [facility] of PFIZER VACCINE 00:00:00 [facility] SARS-COV-2 COVID-19 2020-11-21 Completed [facility] of PFIZER VACCINE 00:00:00 [facility] SARS-COV-2 COVID-19 2020-11-21 Completed [facility] of PFIZER VACCINE 00:00:00 [facility] SARS-COV-2 COVID-19 2020-11-21 Completed [facility] of PFIZER VACCINE 00:00:00 [facility] SARS-COV-2 COVID-19 2020-11-21 Completed [facility] of PFIZER VACCINE 00:00:00 [facility] SARS-COV-2 COVID-19 2020-11-21 Completed [facility] of PFIZER VACCINE 00:00:00 [facility] SARS-COV-2 COVID-19 2020-11-21 Completed [facility] of PFIZER VACCINE 00:00:00 [facility] SARS-COV-2 COVID-19 2020-11-21 Completed [facility] of PFIZER VACCINE 00:00:00 [facility] SARS-COV-2 COVID-19 2020-11-21 Completed [facility] of PFIZER VACCINE 00:00:00 [facility] SARS-COV-2 COVID-19 2020-11-21 Completed [facility] of PFIZER VACCINE 00:00:00 [facility] SARS-COV-2 COVID-19 2020-11-21 Completed [facility] of PFIZER VACCINE 00:00:00 [facility] SARS-COV-2 COVID-19 2020-11-21 Completed [facility] of PFIZER VACCINE 00:00:00 [facility] SARS-COV-2 COVID-19 2020-11-21 Completed [facility] of PFIZER VACCINE 00:00:00 [facility] SARS-COV-2 COVID-19 2020-11-21 Completed [facility] of PFIZER VACCINE 00:00:00 [facility] SARS-COV-2 COVID-19 2020-10-24 Completed [facility] of PFIZER VACCINE 00:00:00 [facility] SARS-COV-2 COVID-19 2020-10-24 Completed [facility] of PFIZER VACCINE 00:00:00 [facility] SARS-COV-2 COVID-19 2020-10-24 Completed [facility] of PFIZER VACCINE 00:00:00 [facility] SARS-COV-2 COVID-19 2020-10-24 Completed [facility] of PFIZER VACCINE 00:00:00 [facility] SARS-COV-2 COVID-19 2020-10-24 Completed [facility] of PFIZER VACCINE 00:00:00 [facility] SARS-COV-2 COVID-19 2020-10-24 Completed [facility] of PFIZER VACCINE 00:00:00 [facility] SARS-COV-2 COVID-19 2020-10-24 Completed [facility] of PFIZER VACCINE 00:00:00 [facility] SARS-COV-2 COVID-19 2020-10-24 Completed [facility] of PFIZER VACCINE 00:00:00 [facility] SARS-COV-2 COVID-19 2020-10-24 Completed [facility] of PFIZER VACCINE 00:00:00 [facility] SARS-COV-2 COVID-19 2020-10-24 Completed [facility] of PFIZER VACCINE 00:00:00 [facility] SARS-COV-2 COVID-19 2020-10-24 Completed [facility] of PFIZER VACCINE 00:00:00 [facility] SARS-COV-2 COVID-19 2020-10-24 Completed [facility] of PFIZER VACCINE 00:00:00 [facility] SARS-COV-2 COVID-19 2020-10-24 Completed [facility] of PFIZER VACCINE 00:00:00 [facility] SARS-COV-2 COVID-19 2020-10-24 Completed [facility] of PFIZER VACCINE 00:00:00 [facility] SARS-COV-2 COVID-19 2020-10-24 Completed [facility] of PFIZER VACCINE 00:00:00 [facility] SARS-COV-2 COVID-19 2020-10-24 Completed [facility] of PFIZER VACCINE 00:00:00 [facility] SARS-COV-2 COVID-19 2020-10-24 Completed [facility] of PFIZER VACCINE 00:00:00 [facility] SARS-COV-2 COVID-19 2020-10-24 Completed [facility] of PFIZER VACCINE 00:00:00 [facility] SARS-COV-2 COVID-19 2020-10-24 Completed [facility] of PFIZER VACCINE 00:00:00 [facility] SARS-COV-2 COVID-19 2020-10-24 Completed [facility] of PFIZER VACCINE 00:00:00 [facility] SARS-COV-2 COVID-19 2020-10-24 Completed [facility] of PFIZER VACCINE 00:00:00 [facility] SARS-COV-2 COVID-19 2020-10-24 Completed [facility] of PFIZER VACCINE 00:00:00 [facility] SARS-COV-2 COVID-19 2020-10-24 Completed [facility] of PFIZER VACCINE 00:00:00 [facility] SARS-COV-2 COVID-19 2020-10-24 Completed [facility] of PFIZER VACCINE 00:00:00 [facility] SARS-COV-2 COVID-19 2020-10-24 Completed [facility] of PFIZER VACCINE 00:00:00 [facility] SARS-COV-2 COVID-19 2020-10-24 Completed [facility] of PFIZER VACCINE 00:00:00 [facility] SARS-COV-2 COVID-19 2020-10-24 Completed [facility] of PFIZER VACCINE 00:00:00 [facility] SARS-COV-2 COVID-19 2020-10-24 Completed [facility] of PFIZER VACCINE 00:00:00 [facility] SARS-COV-2 COVID-19 2020-10-24 Completed [facility] of PFIZER VACCINE 00:00:00 [facility] SARS-COV-2 COVID-19 2020-10-24 Completed [facility] of PFIZER VACCINE 00:00:00 [facility] SARS-COV-2 COVID-19 2020-10-24 Completed [facility] of PFIZER VACCINE 00:00:00 [facility] SARS-COV-2 COVID-19 2020-10-24 Completed [facility] of PFIZER VACCINE 00:00:00 [facility] SARS-COV-2 COVID-19 2020-10-24 Completed [facility] of PFIZER VACCINE 00:00:00 [facility] SARS-COV-2 COVID-19 2020-10-24 Completed [facility] of PFIZER VACCINE 00:00:00 [facility] SARS-COV-2 COVID-19 2020-10-24 Completed [facility] PFIZER VACCINE 00:00:00 [facility] SARS-COV-2 COVID-19 2020-10-24 Completed [facility] PFIZER VACCINE 00:00:00 [facility] SARS-COV-2 COVID-19 2020-10-24 Completed [facility] PFIZER VACCINE 00:00:00 [facility] SARS-COV-2 COVID-19 2020-10-24 Completed [facility] PFIZER VACCINE 00:00:00 [facility] SARS-COV-2 COVID-19 2020-10-24 Completed [facility] of PFIZER VACCINE 00:00:00 [facility] SARS-COV-2 COVID-19 2020-10-24 Completed [facility] PFIZER VACCINE 00:00:00 [facility] SARS-COV-2 COVID-19 2020-10-24 Completed [facility] PFIZER VACCINE 00:00:00 [facility] SARS-COV-2 COVID-19 2020-10-24 Completed [...] Completed [facility] 00:00:00 [facility] Meningococcal B, OMV 2018-10-31 Completed [facility] [...] OMV 2018-10-31 Completed [facility] 00:00:00 [facility] Meningococcal B, OMV 2018-10-31 Completed [facility] 00:00:00 [facility] Meningococcal B, OMV 2018-10-31 Completed [facility] 00:00:00 [facility] Influenza Virus 2018-08-29 Completed [facility] .5 [facility] IM 00:00[facility]00 [facility] Meningococcal B, OMV 2018-08-29 Completed [facility] 00:00:00 [facility] Influenza Virus 2018-08-29 Completed [facility] .5 mL IM 00:00:00 [facility] Meningococcal B, OMV 2018-08-29 Completed [facility] 00:00:00 [facility] Influenza Virus 2018-08-29 Completed [facility] .5 mL IM 00:00:00 [facility] Meningococcal B, OMV 2018-08-29 Completed [facility] 00:00:00 [facility] Influenza Virus 2018-08-29 Completed [facility] .5 mL IM 00:00:00 [facility] Meningococcal B, OMV 2018-08-29 Completed [facility] 00:00:00 [facility] Influenza Virus 2018-08-29 Completed [facility] .5 mL IM 00:00:00 [facility] Meningococcal B, OMV 2018-08-29 Completed [facility] 00:00:00 [facility] Influenza Virus 2018-08-29 Completed [facility] .5 mL IM 00:00:00 [facility] Meningococcal B, OMV 2018-08-29 Completed [facility] 00:00:00 [facility] Influenza Virus 2018-08-29 Completed [facility] .5 mL IM 00:00:00 [facility] Meningococcal B, OMV 2018-08-29 Completed [facility] 00:00:00 [facility] Influenza Virus 2018-08-29 Completed [facility] .5 mL IM 00:00:00 [facility] Meningococcal B, OMV 2018-08-29 Completed [facility] 00:00:00 [facility] Influenza Virus 2018-08-29 Completed [facility] .5 mL IM 00:00:00 [facility] Meningococcal B, OMV 2018-08-29 Completed [facility] 00:00:00 [facility] Influenza Virus 2018-08-29 Completed [facility] .5 mL IM 00:00:00 [facility] Meningococcal B, OMV 2018-08-29 Completed [facility] 00:00:00 [facility] Influenza Virus 2018-08-29 Completed [facility] .5 mL IM 00:00:00 [facility] Meningococcal B, OMV 2018-08-29 Completed [facility] 00:00:00 [facility] Influenza Virus 2018-08-29 Completed [facility] .5 mL IM 00:00:00 [facility] Meningococcal B, OMV 2018-08-29 Completed [facility] 00:00:00 [facility] Influenza Virus 2018-08-29 Completed [facility] .5 mL IM 00:00:00 [facility] Meningococcal B, OMV 2018-08-29 Completed [facility] 00:00:00 [facility] Influenza Virus 2018-08-29 Completed [facility] .5 mL IM 00:00:00 [facility] Meningococcal B, OMV 2018-08-29 Completed [facility] 00[facility]00:00 [facility] Influenza Virus 2018-08-29 Completed [facility] .5 mL IM 00:00:00 [facility] Meningococcal B, OMV 2018-08-29 Completed [facility] 00:00:00 [facility] Influenza Virus 2018-08-29 Completed [facility] .5 mL IM 00:00:00 [facility] Meningococcal B, OMV 2018-08-29 Completed [facility] 00:00:00 [facility] Influenza Virus 2018-08-29 Completed [facility] .5 mL IM 00:00:00 [facility] Meningococcal B, OMV 2018-08-29 Completed [facility] 00:00:00 [facility] Influenza Virus 2018-08-29 Completed [facility] .5 mL IM 00:00:00 [facility] Meningococcal B, OMV 2018-08-29 Completed [facility] 00:00:00 [facility] Influenza Virus 2018-08-29 Completed [facility] .5 mL IM 00:00:00 [facility] Meningococcal B, OMV 2018-08-29 Completed [facility] 00:00:00 [facility] Influenza Virus 2018-08-29 Completed [facility] .5 mL IM 00:00:00 [facility] Meningococcal B, OMV 2018-08-29 Completed [facility] 00:00:00 [facility] Influenza Virus 2018-08-29 Completed [facility] .5 mL IM 00:00:00 [facility] Meningococcal B, OMV 2018-08-29 Completed [facility] 00:00:00 [facility] Influenza Virus 2018-08-29 Completed [facility] .5 mL IM 00:00:00 [facility] Meningococcal B, OMV 2018-08-29 Completed [facility] 00:00:00 [facility] Influenza Virus 2018-08-29 Completed [facility] .5 mL IM 00:00:00 [facility] Meningococcal B, OMV 2018-08-29 Completed [facility] 00:00:00 [facility] Influenza Virus 2018-08-29 Completed [facility] .5 mL IM 00:00:00 [facility] Meningococcal B, OMV 2018-08-29 Completed [facility] 00:00:00 [facility] Influenza Virus 2018-08-29 Completed [facility] .5 mL IM 00:00:00 [facility] Meningococcal B, OMV 2018-08-29 Completed [facility] 00:00:00 [facility] Influenza Virus 2018-08-29 Completed [facility] .5 mL IM 00:00:00 [facility] Meningococcal B, OMV 2018-08-29 Completed [facility] 00:00:00 [facility] Influenza Virus 2018-08-29 Completed [facility] .5 mL IM 00:00:00 [facility] Meningococcal B, OMV 2018-08-29 Completed [facility] 00:00:00 [facility] Influenza Virus 2018-08-29 Completed [facility] .5 mL IM 00:00:00 [facility] Meningococcal B, OMV 2018-08-29 Completed [facility] 00:00:00 [facility] Influenza Virus 2018-08-29 Completed [facility] .5 mL IM 00:00:00 [facility] Meningococcal B, OMV 2018-08-29 Completed [facility] 00:00:00 [facility] Influenza Virus 2018-08-29 Completed [facility] .5 mL IM 00:00:00 [facility] Meningococcal B, OMV 2018-08-29 Completed [facility] 00:00:00 [facility] Influenza Virus 2018-08-29 Completed [facility] .5 mL IM 00:00:00 [facility] Meningococcal B, OMV 2018-08-29 Completed [facility] 00:00:00 [facility] Influenza Virus 2018-08-29 Completed [facility] .5 mL IM 00:00:00 [facility] Meningococcal B, OMV 2018-08-29 Completed [facility] 00:00:00 [facility] Influenza Virus 2018-08-29 Completed [facility] .5 mL IM 00:00:00 [facility] Meningococcal B, OMV 2018-08-29 Completed [facility] 00:00:00 [facility] Influenza Virus 2018-08-29 Completed [facility] .5 mL IM 00:00:00 [facility] Meningococcal B, OMV 2018-08-29 Completed [facility] 00:00:00 [facility] Influenza Virus 2018-08-29 Completed [facility] .5 mL IM 00:00:00 [facility] Meningococcal B, OMV 2018-08-29 Completed [facility] 00:00:00 [facility] Influenza Virus 2018-08-29 Completed [facility] .5 mL IM 00:00:00 [facility] Meningococcal B, OMV 2018-08-29 Completed [facility] 00:00:00 [facility] Influenza Virus 2018-08-29 Completed [facility] .5 mL IM 00:00:00 [facility] Meningococcal B, OMV 2018-08-29 Completed [facility] 00:00:00 [facility] Influenza Virus 2018-08-29 Completed [facility] .5 mL IM 00:00:00 [facility] Meningococcal B, OMV 2018-08-29 Completed [facility] 00:00:00 [facility] Influenza Virus 2018-08-29 Completed [facility] .5 mL IM 00:00:00 [facility] Meningococcal B, OMV 2018-08-29 Completed [facility] 00:00:00 [facility] Influenza Virus 2018-08-29 Completed [facility] .5 mL IM 00:00:00 [facility] Meningococcal B, OMV 2018-08-29 Completed [facility] 00:00:00 [facility] Influenza Virus 2018-08-29 Completed [facility] .5 mL IM 00:00:00 [facility] Meningococcal B, OMV 2018-08-29 Completed [facility] 00:00:00 [facility] Influenza Virus 2018-08-29 Completed [facility] .5 mL IM 00:00:00 [facility] Meningococcal B, OMV 2018-08-29 Completed [facility] 00:00:00 [facility] Influenza Virus 2018-08-29 Completed [facility] .5 mL IM 00:00:00 [facility] Meningococcal B, OMV 2018-08-29 Completed [facility] 00:00:00 [facility] Influenza Virus 2018-08-29 Completed [facility] .5 mL IM 00:00:00 [facility] Meningococcal B, OMV 2018-08-29 Completed [facility] 00:00:00 [facility] Influenza Virus 2018-08-29 Completed [facility] .5 mL IM 00:00:00 [facility] Meningococcal B, OMV 2018-08-29 Completed [facility] 00:00:00 [facility] Influenza Virus 2018-08-29 Completed [facility] .5 mL IM 00:00:00 [facility] Meningococcal B, OMV 2018-08-29 Completed [facility] 00:00:00 [facility] Influenza Virus 2018-08-29 Completed [facility] .5 mL IM 00:00:00 [facility] Meningococcal B, OMV 2018-08-29 Completed [facility] 00:00:00 [facility] Influenza Virus 2018-08-29 Completed [facility] .5 mL IM 00:00:00 [facility] Meningococcal B, OMV 2018-08-29 Completed [facility] 00:00:00 [facility] Influenza Virus 2018-08-29 Completed [facility] .5 mL IM 00:00:00 [facility] Meningococcal B, OMV 2018-08-29 Completed [facility] 00:00:00 [facility] Influenza Virus 2018-08-29 Completed [facility] .5 mL IM 00:00:00 [facility] Meningococcal B, OMV 2018-08-29 Completed [facility] 00:00:00 [facility] Influenza Virus 2018-08-29 Completed [facility] .5 mL IM 00:00:00 [facility] Meningococcal B, OMV 2018-08-29 Completed [facility] 00:00:00 [facility] Influenza Virus 2018-08-29 Completed [facility] .5 mL IM 00:00:00 [facility] Meningococcal B, OMV 2018-08-29 Completed [facility] 00:00:00 [facility] Influenza Virus 2018-08-29 Completed [facility] .5 mL IM 00:00:00 [facility] Meningococcal B, OMV 2018-08-29 Completed [facility] 00:00:00 [facility] Meningococcal 2018-01-17 Completed [facility] of Polysaccharide 00:00:00 [...] of Vaccine Quad IM 3+ 00:00:00 [facility] Influenza Virus 2017-04-12 Completed [facility] Vaccine Quad IM 3+ 00:00:00 [facility] Influenza Virus 2017-04-12 Completed [facility] Vaccine Quad IM 3+ 00:00:00 [facility] Influenza Virus 2017-04-12 Completed [facility] Vaccine Quad IM 3+ 00:00:00 [facility] Influenza Virus 2017-04-12 Completed [facility] Vaccine [facility] IM 3+ 00:00:00 [facility] Influenza Virus 2017-04-12 Completed [facility] Vaccine Quad IM 3+ 00:00:00 [facility] Influenza Virus 2017-04-12 Completed [facility] Vaccine Quad IM 3+ 00:00:00 [facility] Influenza Virus 2017-04-12 Completed [facility] Vaccine Quad IM 3+ 00:00:00 [facility] Influenza Virus 2017-04-12 Completed [facility] Vaccine Quad IM 3+ 00:00:00 [facility] Influenza Virus 2017-04-12 Completed [facility] Vaccine Quad IM 3+ 00:00:00 [facility] Influenza Virus 2017-04-12 Completed [facility] Vaccine Quad IM 3+ 00:00:00 [facility] Influenza Virus 2017-04-12 Completed [facility] Vaccine Quad IM 3+ 00:00:00 [facility] Influenza Virus 2017-04-12 Completed [facility] Vaccine Quad IM 3+ 00:00:00 [facility] Influenza Virus 2017-04-12 Completed [facility] Vaccine Quad IM 3+ 00:00:00 [facility] Influenza Virus 2017-04-12 Completed [facility] Vaccine Quad IM 3+ 00:00:00 [facility] Influenza Virus 2017-04-12 Completed [facility] Vaccine Quad IM 3+ 00:00:00 [facility] Influenza Virus 2017-04-12 Completed [facility] Vaccine Quad IM 3+ 00:00:00 [facility] Influenza Virus 2017-04-12 Completed [facility] Vaccine Quad IM 3+ 00:00:00 [facility] Influenza Virus 2017-04-12 Completed [facility] Vaccine Quad IM 3+ 00:00:00 [facility] Influenza Virus 2017-04-12 Completed [facility] Vaccine Quad IM 3+ 00:00:00 [facility] Influenza Virus 2017-04-12 Completed [facility] Vaccine Quad IM 3+ 00:00:00 [facility] Influenza Virus 2017-04-12 Completed [facility] Vaccine Quad IM 3+ 00:00:00 [facility] Influenza Virus 2017-04-12 Completed [facility] Vaccine Quad IM 3+ 00:00:00 [facility] Influenza Virus 2017-04-12 Completed [facility] Vaccine Quad IM 3+ 00:00:00 [facility] Influenza Virus 2017-04-12 Completed [facility] Vaccine Quad IM 3+ 00:00:00 [facility] Influenza Virus 2017-04-12 Completed [facility] Vaccine Quad IM 3+ 00:00:00 [facility] Influenza Virus 2017-04-12 Completed [facility] Vaccine Quad IM 3+ 00:00:00 [facility] Influenza Virus 2017-04-12 Completed [facility] Vaccine Quad IM 3+ 00:00:00 [facility] Influenza Virus 2017-04-12 Completed [facility] Vaccine Quad IM 3+ 00:00:00 [facility] Influenza Virus 2017-04-12 Completed [facility] Vaccine Quad IM 3+ 00:00:00 [facility] Influenza Virus 2017-04-12 Completed [facility] Vaccine Quad IM 3+ 00:00:00 [facility] Influenza Virus 2017-04-12 Completed [facility] Vaccine Quad IM 3+ 00:00:00 [facility] Influenza Virus 2017-04-12 Completed [facility] Vaccine Quad IM 3+ 00:00:00 [facility] Influenza Virus 2017-04-12 Completed [facility] Vaccine Quad IM 3+ 00:00:00 [facility] Influenza Virus 2017-04-12 Completed [facility] Vaccine Quad IM 3+ 00:00:00 [facility] Influenza Virus 2017-04-12 Completed [facility] Vaccine Quad IM 3+ 00:00:00 [facility] Influenza Virus 2017-04-12 Completed [facility] Vaccine Quad IM 3+ 00:00:00 [facility] Influenza Virus 2017-04-12 Completed [facility] Vaccine Quad IM 3+ 00:00:00 [facility] Influenza Virus 2017-04-12 Completed [facility] Vaccine Quad IM 3+ 00:00:00 [facility] Influenza Virus 2017-04-12 Completed [facility] Vaccine Quad IM 3+ 00:00:00 [facility] Influenza Virus 2017-04-12 Completed [facility] Vaccine Quad IM 3+ 00:00:00 [facility] Influenza Virus 2017-04-12 Completed [facility] Vaccine Quad IM 3+ 00:00:00 [facility] Influenza Virus 2017-04-12 Completed [facility] Vaccine Quad IM 3+ 00:00:00 [facility] Influenza Virus 2017-04-12 Completed [facility] Vaccine Quad IM 3+ 00:00:00 [facility] Influenza Virus 2017-04-12 Completed [facility] Vaccine Quad IM 3+ 00:00:00 [facility] Influenza Virus 2017-04-12 Completed [facility] Vaccine Quad IM 3+ 00:00:00 [facility] Influenza Virus 2017-04-12 Completed [facility] Vaccine Quad IM 3+ 00:00:00 [facility] Influenza Virus 2017-04-12 Completed [facility] Vaccine Quad IM 3+ 00:00:00 [facility] Influenza Virus 2017-04-12 Completed [facility] Vaccine Quad IM 3+ 00:00:00 [facility] Influenza Virus 2017-04-12 Completed [facility] Vaccine Quad IM 3+ 00:00:00 [facility] Influenza Virus 2017-04-12 Completed [facility] Vaccine Quad IM 3+ 00:00:00 [facility] Influenza Virus 2017-04-12 Completed [facility] Vaccine Quad IM 3+ 00:00:00 [facility] Influenza Virus 2017-04-12 Completed [facility] Vaccine Quad IM 3+ 00:00:00 [facility] HPV9 2017-02-01 Completed [facility] 00:00:00 [facility] HPV9 2017-02-01 Completed [facility] of 00:00:00 [facility] HPV9 2017-02-01 Completed [facility] of 00:00:00 [facility] HPV9 2017-02-01 Completed [facility] of 00:00:00 [facility] HPV9 2017-02-01 Completed University of 00:00:00 [facility] HPV9 2017-02-01 Completed [facility] of 00:00:00 [facility] HPV9 2017-02-01 Completed [facility] of 00:00:00 [facility] HPV9 2017-02-01 Completed [facility] of 00:00:00 [facility] HPV9 2017-02-01 Completed [facility] of 00:00:00 [facility] HPV9 2017-02-01 Completed [facility] of 00:00:00 [facility] HPV9 2017-02-01 Completed [facility] of 00:00:00 [facility] HPV9 2017-02-01 Completed [facility] of 00:00:00 [facility] HPV9 2017-02-01 Completed [facility] of 00:00:00 [facility] HPV9 2017-02-01 Completed [facility] of 00:00:00 [facility] HPV9 2017-02-01 Completed [facility] of 00:00:00 [facility] HPV9 2017-02-01 Completed [facility] 00:00:00 [facility] HPV9 2017-02-01 Completed [facility] of 00:00:00 [facility] HPV9 2017-02-01 Completed [facility] of 00:00:00 [facility] HPV9 2017-02-01 Completed [facility] 00:00:00 [facility] HPV9 2017-02-01 Completed [facility] of 00:00:00 [facility] HPV9 2017-02-01 Completed [facility] of 00:00:00 [facility] HPV9 2017-02-01 Completed [facility] of 00:00:00 [facility] HPV9 2017-02-01 Completed [facility] of 00:00:00 [facility] HPV9 2017-02-01 Completed [facility] 00:00:00 [facility] HPV9 2017-02-01 Completed [facility] 00:00:00 [facility] HPV9 2017-02-01 Completed [facility] 00:00:00 [facility] HPV9 2017-02-01 Completed [facility] 00:00:00 [facility] HPV9 2017-02-01 Completed [facility] 00:00:00 [facility] HPV9 2017-02-01 Completed [facility] 00:00:00 [facility] HPV9 2017-02-01 Completed [facility] 00:00:00 [facility] HPV9 2017-02-01 Completed [facility] 00:00:00 [facility] HPV9 2017-02-01 Completed [facility] 00:00:00 [facility] HPV9 2017-02-01 Completed [facility] 00:00:00 [facility] HPV9 2017-02-01 Completed [facility] 00:00:00 [facility] HPV9 2017-02-01 Completed [facility] 00:00:00 [facility] HPV9 2017-02-01 Completed [facility] 00:00:00 [facility] HPV9 2017-02-01 Completed [facility] 00:00:00 [facility] HPV9 2017-02-01 Completed [facility] 00:00:00 [facility] HPV9 2017-02-01 Completed [facility] 00:00:00 [facility] HPV9 2017-02-01 Completed [facility] 00:00:00 [facility] HPV9 2017-02-01 Completed [facility] 00:00:00 [facility] HPV9 2017-02-01 Completed [facility] 00:00:00 [facility] HPV9 2017-02-01 Completed [facility] 00:00:00 [facility] HPV9 2017-02-01 Completed [facility] 00:00:00 [facility] HPV9 2017-02-01 Completed [facility] 00:00:00 [facility] HPV9 2017-02-01 Completed [facility] 00:00:00 [facility] HPV9 2017-02-01 Completed [facility] 00:00:00 [facility] HPV9 2017-02-01 Completed [facility] 00:00:00 [facility] HPV9 2017-02-01 Completed [facility] 00:00:00 [facility] HPV9 2017-02-01 Completed [facility] 00:00:00 [facility] HPV9 2017-02-01 Completed [facility] 00:00:00 [facility] HPV9 2017-02-01 Completed [facility] 00:00:00 [facility] HPV9 2017-02-01 Completed [facility] 00:00:00 [facility] HPV 2016-01-20 Completed [facility] 00:00:00 [facility] HPV 2016-01-20 Completed [facility] 00:00:00 [facility] HPV 2016-01-20 Completed [facility] 00:00:00 [facility] HPV 2016-01-20 Completed [facility] 00:00:00 [facility] HPV 2016-01-20 Completed [facility] 00:00:00 [facility] HPV 2016-01-20 Completed [facility] 00:00:00 [facility] HPV 2016-01-20 Completed [facility] 00:00:00 [facility] HPV 2016-01-20 Completed [facility] 00:00:00 [facility] HPV 2016-01-20 Completed [facility] 00:00:00 [facility] HPV 2016-01-20 Completed [facility] 00:00:00 [facility] HPV 2016-01-20 Completed [facility] 00:00:00 [facility] HPV 2016-01-20 Completed [facility] 00:00:00 [facility] HPV 2016-01-20 Completed [facility] 00:00:00 [facility] HPV 2016-01-20 Completed [facility] 00:00:00 [facility] HPV 2016-01-20 Completed [facility] 00:00:00 [facility] HPV 2016-01-20 Completed [facility] 00:00:00 [facility] HPV 2016-01-20 Completed [facility] 00:00:00 [facility] HPV 2016-01-20 Completed [facility] 00:00:00 [facility] HPV 2016-01-20 Completed [facility] 00:00:00 [facility] HPV 2016-01-20 Completed [facility] 00:00:00 [facility] HPV 2016-01-20 Completed [facility] 00:00:00 [facility] HPV 2016-01-20 Completed [facility] 00:00:00 [facility] HPV 2016-01-20 Completed [facility] 00:00:00 [facility] HPV 2016-01-20 Completed [facility] 00:00:00 [facility] HPV 2016-01-20 Completed [facility] 00:00:00 [facility] HPV 2016-01-20 Completed [facility] 00:00:00 [facility] HPV 2016-01-20 Completed [facility] 00:00:00 [facility] HPV 2016-01-20 Completed [facility] 00:00:00 [facility] HPV 2016-01-20 Completed [facility] of 00:00:00 [facility] HPV 2016-01-20 Completed [facility] 00:00:00 [facility] HPV 2016-01-20 Completed [facility] 00:00:00 [facility] HPV 2016-01-20 Completed [facility] of 00:00:00 [facility] HPV 2016-01-20 Completed [facility] of 00:00:00 [facility] HPV 2016-01-20 Completed [facility] 00:00:00 [facility] HPV 2016-01-20 Completed [facility] of 00:00:00 [facility] HPV 2016-01-20 Completed [facility] of 00:00:00 [facility] HPV 2016-01-20 Completed [facility] of 00:00:00 [facility] HPV 2016-01-20 Completed [facility] 00:00:00 [facility] HPV 2016-01-20 Completed [facility] 00[facility]00:00 [facility] HPV 2016-01-20 Completed [facility] 00[facility]00:00 [facility] HPV 2016-01-20 Completed [facility] 00:00:00 [facility] HPV 2016-01-20 Completed [facility] 00:00:00 [facility] HPV 2016-01-20 Completed [facility] 00:00:00 [facility] HPV 2016-01-20 Completed [facility] 00:00:00 [facility] HPV 2016-01-20 Completed [facility] 00:00:00 [facility] HPV 2016-01-20 Completed [facility] 00[facility]00:00 [facility] HPV 2016-01-20 Completed [facility] 00:00:00 [facility] HPV 2016-01-20 Completed [facility] 00:00:00 [facility] HPV 2016-01-20 Completed [facility] 00:00:00 [facility] HPV 2016-01-20 Completed [facility] 00:00:00 [facility] HPV 2016-01-20 Completed [facility] 00:00:00 [facility] HPV 2016-01-20 Completed [facility] 00:00:00 [facility] HPV 2016-01-20 Completed [facility] 00:00:00 [facility] Influenza Virus 2015-07-08 Completed [facility]it y of Vaccine Quad IM 3+ 00:00:00 [facility] HPV9 2015-07-08 Completed [facility] 00:00:00 [facility] Influenza Virus 2015-07-08 Completed [facility] y of Vaccine Quad IM 3+ 00:00:00 [facility] HPV9 2015-07-08 Completed [facility] 00:00:00 [facility] Influenza Virus 2015-07-08 Completed [facility] y of Vaccine Quad IM 3+ 00:00:00 [facility] HPV9 2015-07-08 Completed [facility] 00:00:00 [facility] Influenza Virus 2015-07-08 Completed [facility] y of Vaccine Quad IM 3+ 00:00:00 [facility] HPV9 2015-07-08 Completed [facility] 00:00:00 [facility] Influenza Virus 2015-07-08 Completed [facility] y of Vaccine Quad IM 3+ 00:00:00 [facility] HPV9 2015-07-08 Completed [facility] 00:00:00 [facility] Influenza Virus 2015-07-08 Completed [facility] y of Vaccine Quad IM 3+ 00:00:00 [facility] HPV9 2015-07-08 Completed [facility] 00:00:00 [facility] Influenza Virus 2015-07-08 Completed [facility] y of Vaccine Quad IM 3+ 00:00:00 [facility] HPV9 2015-07-08 Completed [facility] 00:00:00 [facility] Influenza Virus 2015-07-08 Completed [facility] y of Vaccine Quad IM 3+ 00:00:00 [facility] HPV9 2015-07-08 Completed [facility] 00:00:00 [facility] Influenza Virus 2015-07-08 Completed [facility] y of Vaccine Quad IM 3+ 00:00:00 [facility] HPV9 2015-07-08 Completed [facility] 00:00:00 [facility] Influenza Virus 2015-07-08 Completed [facility] y of Vaccine Quad IM 3+ 00:00:00 [facility] HPV9 2015-07-08 Completed [facility] 00:00:00 [facility] Influenza Virus 2015-07-08 Completed [facility] y of Vaccine Quad IM 3+ 00:00:00 [facility] HPV9 2015-07-08 Completed [facility] 00:00:00 [facility] Influenza Virus 2015-07-08 Completed [facility] y of Vaccine Quad IM 3+ 00:00:00 [facility] HPV9 2015-07-08 Completed [facility] 00:00:00 [facility] Influenza Virus 2015-07-08 Completed [facility] y of Vaccine Quad IM 3+ 00:00:00 [facility] HPV9 2015-07-08 Completed [facility] 00:00:00 [facility] Influenza Virus 2015-07-08 Completed [facility] y of Vaccine Quad IM 3+ 00:00:00 [facility] HPV9 2015-07-08 Completed [facility] 00:00:00 [facility] Influenza Virus 2015-07-08 Completed [facility] y of Vaccine Quad IM 3+ 00:00:00 [facility] HPV9 2015-07-08 Completed [facility] 00:00:00 [facility] Influenza Virus 2015-07-08 Completed [facility] y of Vaccine Quad IM 3+ 00:00:00 [facility] HPV9 2015-07-08 Completed [facility] 00:00:00 [facility] Influenza Virus 2015-07-08 Completed [facility] y of Vaccine Quad IM 3+ 00:00:00 [facility] HPV9 2015-07-08 Completed [facility] 00:00:00 [facility] Influenza Virus 2015-07-08 Completed [facility] y of Vaccine Quad IM 3+ 00:00:00 [facility] HPV9 2015-07-08 Completed [facility] 00:00:00 [facility] Influenza Virus 2015-07-08 Completed [facility] y of Vaccine Quad IM 3+ 00:00:00 [facility] HPV9 2015-07-08 Completed [facility] 00:00:00 [facility] Influenza Virus 2015-07-08 Completed [facility] y of Vaccine Quad IM 3+ 00:00:00 [facility] HPV9 2015-07-08 Completed [facility] 00:00:00 [facility] Influenza Virus 2015-07-08 Completed [facility] y of Vaccine Quad IM 3+ 00:00:00 [facility] HPV9 2015-07-08 Completed [facility] 00:00:00 [facility] Influenza Virus 2015-07-08 Completed [facility] y of Vaccine Quad IM 3+ 00:00:00 [facility] HPV9 2015-07-08 Completed [facility] 00:00:00 [facility] Influenza Virus 2015-07-08 Completed [facility] y of Vaccine Quad IM 3+ 00:00:00 [facility] HPV9 2015-07-08 Completed [facility] 00:00:00 [facility] Influenza Virus 2015-07-08 Completed [facility] y of Vaccine Quad IM 3+ 00:00:00 [facility] HPV9 2015-07-08 Completed [facility] 00:00:00 [facility] Influenza Virus 2015-07-08 Completed [facility] y of Vaccine Quad IM 3+ 00:00:00 [facility] HPV9 2015-07-08 Completed [facility] 00:00:00 [facility] Influenza Virus 2015-07-08 Completed [facility] y of Vaccine Quad IM 3+ 00:00:00 [facility] HPV9 2015-07-08 Completed [facility] 00:00:00 [facility] Influenza Virus 2015-07-08 Completed [facility] y of Vaccine Quad IM 3+ 00:00:00 [facility] HPV9 2015-07-08 Completed [facility] 00:00:00 [facility] Influenza Virus 2015-07-08 Completed [facility] y of Vaccine Quad IM 3+ 00:00:00 [facility] HPV9 2015-07-08 Completed [facility] 00:00:00 [facility] Influenza Virus 2015-07-08 Completed [facility] y of Vaccine Quad IM 3+ 00:00:00 [facility] HPV9 2015-07-08 Completed [facility] 00:00:00 [facility] Influenza Virus 2015-07-08 Completed [facility] y of Vaccine Quad IM 3+ 00:00:00 [facility] HPV9 2015-07-08 Completed [facility] 00:00:00 [facility] Influenza Virus 2015-07-08 Completed [facility] y of Vaccine Quad IM 3+ 00:00:00 [facility] HPV9 2015-07-08 Completed [facility] 00:00:00 [facility] Influenza Virus 2015-07-08 Completed [facility] y of Vaccine Quad IM 3+ 00:00:00 [facility] HPV9 2015-07-08 Completed [facility] 00:00:00 [facility] Influenza Virus 2015-07-08 Completed [facility] y of Vaccine Quad IM 3+ 00:00:00 [facility] HPV9 2015-07-08 Completed [facility] 00:00:00 [facility] Influenza Virus 2015-07-08 Completed [facility] y of Vaccine Quad IM 3+ 00:00:00 [facility] HPV9 2015-07-08 Completed [facility] 00:00:00 [facility] Influenza Virus 2015-07-08 Completed [facility] y of Vaccine Quad IM 3+ 00:00:00 [facility] HPV9 2015-07-08 Completed [facility] 00:00:00 [facility] Influenza Virus 2015-07-08 Completed [facility] y of Vaccine Quad IM 3+ 00:00:00 [facility] HPV9 2015-07-08 Completed [facility] 00:00:00 [facility] Influenza Virus 2015-07-08 Completed [facility] y of Vaccine Quad IM 3+ 00:00:00 [facility] HPV9 2015-07-08 Completed [facility] 00:00:00 [facility] Influenza Virus 2015-07-08 Completed [facility] y of Vaccine Quad IM 3+ 00:00:00 [facility] HPV9 2015-07-08 Completed [facility] 00:00:00 [facility] Influenza Virus 2015-07-08 Completed [facility] y of Vaccine Quad IM 3+ 00:00:00 [facility] HPV9 2015-07-08 Completed [facility] 00:00:00 [facility] Influenza Virus 2015-07-08 Completed [facility] y of Vaccine Quad IM 3+ 00:00:00 [facility] HPV9 2015-07-08 Completed [facility] 00:00:00 [facility] Influenza Virus 2015-07-08 Completed [facility] y of Vaccine Quad IM 3+ 00:00:00 [facility] HPV9 2015-07-08 Completed [facility] 00:00:00 [facility] Influenza Virus 2015-07-08 Completed [facility] y of Vaccine Quad IM 3+ 00:00:00 [facility] HPV9 2015-07-08 Completed [facility] 00:00:00 [facility] Influenza Virus 2015-07-08 Completed [facility] y of Vaccine Quad IM 3+ 00:00:00 [facility] HPV9 2015-07-08 Completed [facility] 00:00:00 [facility] Influenza Virus 2015-07-08 Completed [facility] y of Vaccine Quad IM 3+ 00:00:00 [facility] HPV9 2015-07-08 Completed [facility] 00:00:00 [facility] Influenza Virus 2015-07-08 Completed [facility] y of Vaccine Quad IM 3+ 00:00:00 [facility] HPV9 2015-07-08 Completed [facility] 00:00:00 [facility] Influenza Virus 2015-07-08 Completed [facility] y of Vaccine Quad IM 3+ 00:00:00 [facility] HPV9 2015-07-08 Completed [facility] 00:00:00 [facility] Influenza Virus 2015-07-08 Completed [facility] y of Vaccine Quad IM 3+ 00:00:00 [facility] HPV9 2015-07-08 Completed [facility] 00:00:00 [facility] Influenza Virus 2015-07-08 Completed [facility] y of Vaccine Quad IM 3+ 00:00:00 [facility] HPV9 2015-07-08 Completed [facility] 00:00:00 [facility] Influenza Virus 2015-07-08 Completed [facility] y of Vaccine Quad IM 3+ 00:00:00 [facility] HPV9 2015-07-08 Completed [facility] 00:00:00 [facility] Influenza Virus 2015-07-08 Completed [facility] y of Vaccine Quad IM 3+ 00:00:00 [facility] HPV9 2015-07-08 Completed [facility] 00:00:00 [facility] Influenza Virus 2015-07-08 Completed [facility] y of Vaccine Quad IM 3+ 00:00:00 [facility] HPV9 2015-07-08 Completed [facility] 00:00:00 [facility] Influenza Virus 2015-07-08 Completed [facility] y of Vaccine Quad IM 3+ 00:00:00 [facility] HPV9 2015-07-08 Completed [facility] 00:00:00 [facility] Influenza Virus 2015-07-08 Completed [facility] y of Vaccine Quad IM 3+ 00:00:00 [facility] HPV9 2015-07-08 Completed [facility] 00:00:00 [facility] Influenza Virus 2014-04-02 Completed [facility] y of Vaccine (3+ yrs) 00:00:00 [facility] Influenza Virus 2014-04-02 Completed [facility] y of Vaccine (3+ yrs) 00:00:00 [facility] Influenza Virus 2014-04-02 Completed [facility] y of Vaccine (3+ yrs) 00:00:00 [facility] Influenza Virus 2014-04-02 Completed [facility] y of Vaccine (3+ yrs) 00:00:00 [facility] Influenza Virus 2014-04-02 Completed [facility] y of Vaccine (3+ yrs) 00:00:00 [facility] Influenza Virus 2014-04-02 Completed [facility] y of Vaccine (3+ yrs) 00:00:00 [facility] Influenza Virus 2014-04-02 Completed [facility] y of Vaccine (3+ yrs) 00:00:00 [facility] Influenza Virus 2014-04-02 Completed [facility] y of Vaccine (3+ yrs) 00:00:00 [facility] Influenza Virus 2014-04-02 Completed [facility] y of Vaccine (3+ yrs) 00:00:00 [facility] Influenza Virus 2014-04-02 Completed [facility] y of Vaccine (3+ yrs) 00:00:00 [facility] Influenza Virus 2014-04-02 Completed [facility] y of Vaccine (3+ yrs) 00:00:00 [facility] Influenza Virus 2014-04-02 Completed [facility] y of Vaccine (3+ yrs) 00:00:00 [facility] Influenza Virus 2014-04-02 Completed [facility] y of Vaccine (3+ yrs) 00:00:00 [facility] Influenza Virus 2014-04-02 Completed [facility] y of Vaccine (3+ yrs) 00:00:00 [facility] Influenza Virus 2014-04-02 Completed [facility] y of Vaccine (3+ yrs) 00:00:00 [facility] Influenza Virus 2014-04-02 Completed [facility] y of Vaccine (3+ yrs) 00:00:00 [facility] Influenza Virus 2014-04-02 Completed [facility] y of Vaccine (3+ yrs) 00:00:00 [facility] Influenza Virus 2014-04-02 Completed [facility] y of Vaccine (3+ yrs) 00:00:00 [facility] Influenza Virus 2014-04-02 Completed [facility] y of Vaccine (3+ yrs) 00:00:00 [facility] Influenza Virus 2014-04-02 Completed [facility] y of Vaccine (3+ yrs) 00:00:00 [facility] Influenza Virus 2014-04-02 Completed [facility] y of Vaccine (3+ yrs) 00:00:00 [facility] Influenza Virus 2014-04-02 Completed [facility] y of Vaccine (3+ yrs) 00:00:00 [facility] Influenza Virus 2014-04-02 Completed [facility] y of Vaccine (3+ yrs) 00:00:00 [facility] Influenza Virus 2014-04-02 Completed [facility] y of Vaccine (3+ yrs) 00:00:00 [facility] Influenza Virus 2014-04-02 Completed [facility] y of Vaccine (3+ yrs) 00:00:00 [facility] Influenza Virus 2014-04-02 Completed [facility] y of Vaccine (3+ yrs) 00:00:00 [facility] Influenza Virus 2014-04-02 Completed [facility] y of Vaccine (3+ yrs) 00:00:00 [facility] Influenza Virus 2014-04-02 Completed [facility] y of Vaccine (3+ yrs) 00:00:00 [facility] Influenza Virus 2014-04-02 Completed [facility] y of Vaccine (3+ yrs) 00:00:00 [facility] Influenza Virus 2014-04-02 Completed [facility] y of Vaccine (3+ yrs) 00:00:00 [facility] Influenza Virus 2014-04-02 Completed [facility] y of Vaccine (3+ yrs) 00:00:00 [facility] Influenza Virus 2014-04-02 Completed [facility] y of Vaccine (3+ yrs) 00:00:00 [facility] Influenza Virus 2014-04-02 Completed [facility] y of Vaccine (3+ yrs) 00:00:00 [facility] Influenza Virus 2014-04-02 Completed [facility] y of Vaccine (3+ yrs) 00:00:00 [facility] Influenza Virus 2014-04-02 Completed [facility] y of Vaccine (3+ yrs) 00:00:00 [facility] Influenza Virus 2014-04-02 Completed [facility] y of Vaccine (3+ yrs) 00:00:00 [facility] Influenza Virus 2014-04-02 Completed [facility] y of Vaccine (3+ yrs) 00:00:00 [facility] Influenza Virus 2014-04-02 Completed [facility] y of Vaccine (3+ yrs) 00:00:00 [facility] Influenza Virus 2014-04-02 Completed [facility] y of Vaccine (3+ yrs) 00:00:00 [facility] Influenza Virus 2014-04-02 Completed [facility] y of Vaccine (3+ yrs) 00:00:00 [facility] Influenza Virus 2014-04-02 Completed [facility] y of Vaccine (3+ yrs) 00:00:00 [facility] Influenza Virus 2014-04-02 Completed [facility] y of Vaccine (3+ yrs) 00:00:00 [facility] Influenza Virus 2014-04-02 Completed [facility] y of Vaccine (3+ yrs) 00:00:00 [facility] Influenza Virus 2014-04-02 Completed [facility] y of Vaccine (3+ yrs) 00:00:00 [facility] Influenza Virus 2014-04-02 Completed [facility] y of Vaccine (3+ yrs) 00:00:00 [facility] Influenza Virus 2014-04-02 Completed [facility] y of Vaccine (3+ yrs) 00:00:00 [facility] Influenza Virus 2014-04-02 Completed [facility] y of Vaccine (3+ yrs) 00:00:00 [facility] Influenza Virus 2014-04-02 Completed [facility] y of Vaccine (3+ yrs) 00:00:00 [facility] Influenza Virus 2014-04-02 Completed [facility] y of Vaccine (3+ yrs) 00:00:00 [facility] Influenza Virus 2014-04-02 Completed [facility] y of Vaccine (3+ yrs) 00:00:00 [facility] Influenza Virus 2014-04-02 Completed [facility] y of Vaccine (3+ yrs) 00:00:00 [facility] Influenza Virus 2014-04-02 Completed [facility] y of Vaccine (3+ yrs) 00:00:00 [facility] Influenza Virus 2014-04-02 Completed [facility] y of Vaccine (3+ yrs) 00:00:00 [facility] Influenza Virus 2013-05-22 Completed [facility] y of Vaccine (3+ yrs) 00:00:00 [facility] Meningococcal 2013-05-22 Completed [facility] Polysaccharide 00:00:00 [facility] (groups A, C, Y and Branc h W-135) conjugate vaccine (MCV4P) TDAP 2013-05-22 Completed [facility] 00:00:00 [facility] Influenza Virus 2013-05-22 Completed [facility] y of Vaccine (3+ yrs) 00:00:00 [facility] Meningococcal 2013-05-22 Completed [facility] Polysaccharide 00:00:00 [facility] (groups A, C, Y and Branc h W-135) conjugate vaccine (MCV4P) TDAP 2013-05-22 Completed [facility] 00:00:00 [facility] Influenza Virus 2013-05-22 Completed [facility] y of Vaccine (3+ yrs) 00:00:00 [facility] Meningococcal 2013-05-22 Completed [facility] Polysaccharide 00:00:00 [facility] (groups A, C, Y and Branc h W-135) conjugate vaccine (MCV4P) TDAP 2013-05-22 Completed [facility] 00:00:00 [facility] Influenza Virus 2013-05-22 Completed [facility] y of Vaccine (3+ yrs) 00:00:00 [facility] Meningococcal 2013-05-22 Completed [facility] Polysaccharide 00:00:00 [facility] (groups A, C, Y and Branc h W-135) conjugate vaccine (MCV4P) TDAP 2013-05-22 Completed [facility] 00:00:00 [facility] Influenza Virus 2013-05-22 Completed [facility] y of Vaccine (3+ yrs) 00:00:00 [facility] Meningococcal 2013-05-22 Completed [facility] Polysaccharide 00:00:00 [facility] (groups A, C, Y and Branc h W-135) conjugate vaccine (MCV4P) TDAP 2013-05-22 Completed [facility] 00:00:00 [facility] Influenza Virus 2013-05-22 Completed [facility] y of Vaccine (3+ yrs) 00:00:00 [facility] Meningococcal 2013-05-22 Completed [facility] Polysaccharide 00:00:00 [facility] (groups A, C, Y and Branc h W-135) conjugate vaccine (MCV4P) TDAP 2013-05-22 Completed [facility] 00:00:00 [facility] Influenza Virus 2013-05-22 Completed [facility] y of Vaccine (3+ yrs) 00:00:00 [facility] Meningococcal 2013-05-22 Completed [facility] Polysaccharide 00:00:00 [facility] (groups A, C, Y and Branc h W-135) conjugate vaccine (MCV4P) TDAP 2013-05-22 Completed [facility] 00:00:00 [facility] Influenza Virus 2013-05-22 Completed [facility] y of Vaccine (3+ yrs) 00:00:00 [facility] Meningococcal 2013-05-22 Completed [facility] Polysaccharide 00:00:00 [facility] (groups A, C, Y and Branc h W-135) conjugate vaccine (MCV4P) TDAP 2013-05-22 Completed [facility] 00:00:00 [facility] Influenza Virus 2013-05-22 Completed [facility] y of Vaccine (3+ yrs) 00:00:00 [facility] Meningococcal 2013-05-22 Completed [facility] Polysaccharide 00:00:00 [facility] (groups A, C, Y and Branc h W-135) conjugate vaccine (MCV4P) TDAP 2013-05-22 Completed [facility] 00:00:00 [facility] Influenza Virus 2013-05-22 Completed [facility] y of Vaccine (3+ yrs) 00:00:00 [facility] Meningococcal 2013-05-22 Completed [facility] Polysaccharide 00:00:00 [facility] (groups A, C, Y and Branc h W-135) conjugate vaccine (MCV4P) TDAP 2013-05-22 Completed [facility] 00:00:00 [facility] Influenza Virus 2013-05-22 Completed [facility] y of Vaccine (3+ yrs) 00:00:00 [facility] Meningococcal 2013-05-22 Completed [facility] Polysaccharide 00:00:00 [facility] (groups A, C, Y and Branc h W-135) conjugate vaccine (MCV4P) TDAP 2013-05-22 Completed [facility] 00:00:00 [facility] Influenza Virus 2013-05-22 Completed [facility] y of Vaccine (3+ yrs) 00:00:00 [facility] Meningococcal 2013-05-22 Completed [facility] Polysaccharide 00:00:00 [facility] (groups A, C, Y and Branc h W-135) conjugate vaccine (MCV4P) TDAP 2013-05-22 Completed [facility] 00:00:00 [facility] Influenza Virus 2013-05-22 Completed [facility] y of Vaccine (3+ yrs) 00:00:00 [facility] Meningococcal 2013-05-22 Completed [facility] Polysaccharide 00:00:00 [facility] (groups A, C, Y and Branc h W-135) conjugate vaccine (MCV4P) TDAP 2013-05-22 Completed [facility] 00:00:00 [facility] Influenza Virus 2013-05-22 Completed [facility] y of Vaccine (3+ yrs) 00:00:00 [facility] Meningococcal 2013-05-22 Completed [facility] Polysaccharide 00:00:00 [facility] (groups A, C, Y and Branc h W-135) conjugate vaccine (MCV4P) TDAP 2013-05-22 Completed [facility] 00:00:00 [facility] Influenza Virus 2013-05-22 Completed [facility] y of Vaccine (3+ yrs) 00:00:00 [facility] Meningococcal 2013-05-22 Completed [facility] Polysaccharide 00:00:00 [facility] (groups A, C, Y and Branc h W-135) conjugate vaccine (MCV4P) TDAP 2013-05-22 Completed [facility] 00:00:00 [facility] Influenza Virus 2013-05-22 Completed [facility] y of Vaccine (3+ yrs) 00:00:00 [facility] Meningococcal 2013-05-22 Completed [facility] Polysaccharide 00:00:00 [facility] (groups A, C, Y and Branc h W-135) conjugate vaccine (MCV4P) TDAP 2013-05-22 Completed [facility] 00:00:00 [facility] Influenza Virus 2013-05-22 Completed [facility] y of Vaccine (3+ yrs) 00:00:00 [facility] Meningococcal 2013-05-22 Completed [facility] Polysaccharide 00:00:00 [facility] (groups A, C, Y and Branc h W-135) conjugate vaccine (MCV4P) TDAP 2013-05-22 Completed [facility] 00:00:00 [facility] Influenza Virus 2013-05-22 Completed [facility] y of Vaccine (3+ yrs) 00:00:00 [facility] Meningococcal 2013-05-22 Completed [facility] Polysaccharide 00:00:00 [facility] (groups A, C, Y and Branc h W-135) conjugate vaccine (MCV4P) TDAP 2013-05-22 Completed [facility] 00:00:00 [facility] Influenza Virus 2013-05-22 Completed [facility] y of Vaccine (3+ yrs) 00:00:00 [facility] Meningococcal 2013-05-22 Completed [facility] Polysaccharide 00:00:00 [facility] (groups A, C, Y and Branc h W-135) conjugate vaccine (MCV4P) TDAP 2013-05-22 Completed [facility] 00:00:00 [facility] Influenza Virus 2013-05-22 Completed [facility] y of Vaccine (3+ yrs) 00:00:00 [facility] Meningococcal 2013-05-22 Completed [facility] Polysaccharide 00:00:00 [facility] (groups A, C, Y and Branc h W-135) conjugate vaccine (MCV4P) TDAP 2013-05-22 Completed [facility] 00:00:00 [facility] Influenza Virus 2013-05-22 Completed [facility] Vaccine (3+ yrs) 00:00:00 [facility] Meningococcal 2013-05-22 Completed [facility] Polysaccharide 00:00:00 [facility] (groups A, C, Y and Branc h W-135) conjugate vaccine (MCV4P) TDAP 2013-05-22 Completed [facility] 00:00:00 [facility] Influenza Virus 2013-05-22 Completed [facility] Vaccine (3+ yrs) 00:00:00 [facility] Meningococcal 2013-05-22 Completed [facility] Polysaccharide 00:00:00 [facility] (groups A, C, Y and Branc h W-135) conjugate vaccine (MCV4P) TDAP 2013-05-22 Completed [facility] 00:00:00 [facility] Influenza Virus 2013-05-22 Completed [facility] Vaccine (3+ yrs) 00:00:00 [facility] Meningococcal 2013-05-22 Completed [facility] Polysaccharide 00:00:00 [facility] (groups A, C, Y and Branc h W-135) conjugate vaccine (MCV4P) TDAP 2013-05-22 Completed [facility] 00:00:00 [facility] Influenza Virus 2013-05-22 Completed [facility] Vaccine (3+ yrs) 00:00:00 [facility] Meningococcal 2013-05-22 Completed [facility] Polysaccharide 00:00:00 [facility] (groups A, C, Y and Branc h W-135) conjugate vaccine (MCV4P) TDAP 2013-05-22 Completed [facility] 00:00:00 [facility] Influenza Virus 2013-05-22 Completed [facility] Vaccine (3+ yrs) 00:00:00 [facility] Meningococcal 2013-05-22 Completed [facility] Polysaccharide 00:00:00 [facility] (groups A, C, Y and Branc h W-135) conjugate vaccine (MCV4P) TDAP 2013-05-22 Completed [facility] 00:00:00 [facility] Influenza Virus 2013-05-22 Completed [facility] Vaccine (3+ yrs) 00:00:00 [facility] Meningococcal 2013-05-22 Completed [facility] Polysaccharide 00:00:00 [facility] (groups A, C, Y and Branc h W-135) conjugate vaccine (MCV4P) TDAP 2013-05-22 Completed [facility] 00:00:00 [facility] Influenza Virus 2013-05-22 Completed [facility] Vaccine (3+ yrs) 00:00:00 [facility] Meningococcal 2013-05-22 Completed [facility] Polysaccharide 00:00:00 [facility] (groups A, C, Y and Branc h W-135) conjugate vaccine (MCV4P) TDAP 2013-05-22 Completed [facility] 00:00:00 [facility] Influenza Virus 2013-05-22 Completed [facility] Vaccine (3+ yrs) 00:00:00 [facility] Meningococcal 2013-05-22 Completed [facility] Polysaccharide 00:00:00 [facility] (groups A, C, Y and Branc h W-135) conjugate vaccine (MCV4P) TDAP 2013-05-22 Completed [facility] 00:00:00 [facility] Influenza Virus 2013-05-22 Completed [facility] Vaccine (3+ yrs) 00:00:00 [facility] Meningococcal 2013-05-22 Completed [facility] Polysaccharide 00:00:00 [facility] (groups A, C, Y and Branc h W-135) conjugate vaccine (MCV4P) TDAP 2013-05-22 Completed [facility] 00:00:00 [facility] Influenza Virus 2013-05-22 Completed [facility] Vaccine (3+ yrs) 00:00:00 [facility] Meningococcal 2013-05-22 Completed [facility] Polysaccharide 00:00:00 [facility] (groups A, C, Y and Branc h W-135) conjugate vaccine (MCV4P) TDAP 2013-05-22 Completed [facility] 00:00:00 [facility] Influenza Virus 2013-05-22 Completed [facility] Vaccine (3+ yrs) 00:00:00 [facility] Meningococcal 2013-05-22 Completed [facility] Polysaccharide 00:00:00 [facility] (groups A, C, Y and Branc h W-135) conjugate vaccine (MCV4P) TDAP 2013-05-22 Completed [facility] 00:00:00 [facility] Influenza Virus 2013-05-22 Completed [facility] Vaccine (3+ yrs) 00:00:00 [facility] Meningococcal 2013-05-22 Completed [facility] Polysaccharide 00:00:00 [facility] (groups A, C, Y and Branc h W-135) conjugate vaccine (MCV4P) TDAP 2013-05-22 Completed [facility] 00:00:00 [facility] Influenza Virus 2013-05-22 Completed [facility] Vaccine (3+ yrs) 00:00:00 [facility] Meningococcal 2013-05-22 Completed [facility] Polysaccharide 00:00:00 [facility] (groups A, C, Y and Branc h W-135) conjugate vaccine (MCV4P) TDAP 2013-05-22 Completed [facility] 00:00:00 [facility] Influenza Virus 2013-05-22 Completed [facility] Vaccine (3+ yrs) 00:00:00 [facility] Meningococcal 2013-05-22 Completed [facility] Polysaccharide 00:00:00 [facility] (groups A, C, Y and Branc h W-135) conjugate vaccine (MCV4P) TDAP 2013-05-22 Completed [facility] 00:00:00 [facility] Influenza Virus 2013-05-22 Completed [facility] Vaccine (3+ yrs) 00:00:00 [facility] Meningococcal 2013-05-22 Completed [facility] Polysaccharide 00:00:00 [facility] (groups A, C, Y and Branc h W-135) conjugate vaccine (MCV4P) TDAP 2013-05-22 Completed [facility] 00:00:00 [facility] Influenza Virus 2013-05-22 Completed [facility] Vaccine (3+ yrs) 00:00:00 [facility] Meningococcal 2013-05-22 Completed [facility] Polysaccharide 00:00:00 [facility] (groups A, C, Y and Branc h W-135) conjugate vaccine (MCV4P) TDAP 2013-05-22 Completed [facility] 00:00:00 [facility] Influenza Virus 2013-05-22 Completed [facility] Vaccine (3+ yrs) 00:00:00 [facility] Meningococcal 2013-05-22 Completed [facility] Polysaccharide 00:00:00 [facility] (groups A, C, Y and Branc h W-135) conjugate vaccine (MCV4P) TDAP 2013-05-22 Completed [facility] 00:00:00 [facility] Influenza Virus 2013-05-22 Completed [facility] Vaccine (3+ yrs) 00:00:00 [facility] Meningococcal 2013-05-22 Completed [facility] Polysaccharide 00:00:00 [facility] (groups A, C, Y and Branc h W-135) conjugate vaccine (MCV4P) TDAP 2013-05-22 Completed [facility] 00:00:00 [facility] Influenza Virus 2013-05-22 Completed [facility] Vaccine (3+ yrs) 00:00:00 [facility] Meningococcal 2013-05-22 Completed [facility] Polysaccharide 00:00:00 [facility] (groups A, C, Y and Branc h W-135) conjugate vaccine (MCV4P) TDAP 2013-05-22 Completed [facility] 00:00:00 [facility] Influenza Virus 2013-05-22 Completed [facility] Vaccine (3+ yrs) 00:00:00 [facility] Meningococcal 2013-05-22 Completed [facility] Polysaccharide 00:00:00 [facility] (groups A, C, Y and Branc h W-135) conjugate vaccine (MCV4P) TDAP 2013-05-22 Completed [facility] 00:00:00 [facility] Influenza Virus 2013-05-22 Completed [facility] Vaccine (3+ yrs) 00:00:00 [facility] Meningococcal 2013-05-22 Completed [facility] Polysaccharide 00:00:00 [facility] (groups A, C, Y and Branc h W-135) conjugate vaccine (MCV4P) TDAP 2013-05-22 Completed [facility] 00:00:00 [facility] Influenza Virus 2013-05-22 Completed [facility] Vaccine (3+ yrs) 00:00:00 [facility] Meningococcal 2013-05-22 Completed [facility] Polysaccharide 00:00:00 [facility] (groups A, C, Y and Branc h W-135) conjugate vaccine (MCV4P) TDAP 2013-05-22 Completed [facility] 00:00:00 [facility] Influenza Virus 2013-05-22 Completed [facility] Vaccine (3+ yrs) 00:00:00 [facility] Meningococcal 2013-05-22 Completed [facility] Polysaccharide 00:00:00 [facility] (groups A, C, Y and Branc h W-135) conjugate vaccine (MCV4P) TDAP 2013-05-22 Completed [facility] 00:00:00 [facility] Influenza Virus 2013-05-22 Completed [facility] Vaccine (3+ yrs) 00:00:00 [facility] Meningococcal 2013-05-22 Completed [facility] Polysaccharide 00:00:00 [facility] (groups A, C, Y and Branc h W-135) conjugate vaccine (MCV4P) TDAP 2013-05-22 Completed [facility] 00:00:00 [facility] Influenza Virus 2013-05-22 Completed [facility] Vaccine (3+ yrs) 00:00:00 [facility] Meningococcal 2013-05-22 Completed [facility] Polysaccharide 00:00:00 [facility] (groups A, C, Y and Branc h W-135) conjugate vaccine (MCV4P) TDAP 2013-05-22 Completed [facility] 00:00:00 [facility] Influenza Virus 2013-05-22 Completed [facility] Vaccine (3+ yrs) 00:00:00 [facility] Meningococcal 2013-05-22 Completed [facility] Polysaccharide 00:00:00 [facility] (groups A, C, Y and Branc h W-135) conjugate vaccine (MCV4P) TDAP 2013-05-22 Completed [facility] 00:00:00 [facility] Influenza Virus 2013-05-22 Completed [facility] Vaccine (3+ yrs) 00:00:00 [facility] Meningococcal 2013-05-22 Completed [facility] Polysaccharide 00:00:00 [facility] (groups A, C, Y and Branc h W-135) conjugate vaccine (MCV4P) TDAP 2013-05-22 Completed [facility] 00:00:00 [facility] Influenza Virus 2013-05-22 Completed [facility] Vaccine (3+ yrs) 00:00:00 [facility] Meningococcal 2013-05-22 Completed [facility] Polysaccharide 00:00:00 [facility] (groups A, C, Y and Branc h W-135) conjugate vaccine (MCV4P) TDAP 2013-05-22 Completed [facility] 00:00:00 [facility] Influenza Virus 2013-05-22 Completed [facility] Vaccine (3+ yrs) 00:00:00 [facility] Meningococcal 2013-05-22 Completed [facility] Polysaccharide 00:00:00 [facility] (groups A, C, Y and Branc h W-135) conjugate vaccine (MCV4P) TDAP 2013-05-22 Completed [facility] 00:00:00 [facility] Influenza Virus 2013-05-22 Completed [facility] Vaccine (3+ yrs) 00:00:00 [facility] Meningococcal 2013-05-22 Completed [facility] Polysaccharide 00:00:00 [facility] (groups A, C, Y and Branc h W-135) conjugate vaccine (MCV4P) TDAP 2013-05-22 Completed [facility] 00:00:00 [facility] Influenza Virus 2013-05-22 Completed [facility] Vaccine (3+ yrs) 00:00:00 [facility] Meningococcal 2013-05-22 Completed [facility] Polysaccharide 00:00:00 [facility] (groups A, C, Y and Branc h W-135) conjugate vaccine (MCV4P) TDAP 2013-05-22 Completed [facility] 00:00:00 [facility] Influenza Virus 2013-05-22 Completed [facility] Vaccine (3+ yrs) 00:00:00 [facility] Meningococcal 2013-05-22 Completed [facility] Polysaccharide 00:00:00 [facility] (groups A, C, Y and Branc h W-135) conjugate vaccine (MCV4P) TDAP 2013-05-22 Completed [facility] 00:00:00 [facility] Influenza Virus 2013-05-22 Completed [facility] Vaccine (3+ yrs) 00:00:00 [facility] Meningococcal 2013-05-22 Completed [facility] Polysaccharide 00:00:00 [facility] (groups A, C, Y and Branc h W-135) conjugate vaccine (MCV4P) TDAP 2013-05-22 Completed [facility] 00:00:00 [facility] Influenza Virus 2012-06-13 Completed [facility] Vaccine 00:00:00 [facility] Influenza Virus 2012-06-13 Completed [facility] Vaccine 00:00:00 [facility] Influenza Virus 2012-06-13 Completed [facility] Vaccine 00:00:00 [facility] Influenza Virus 2012-06-13 Completed [facility] Vaccine 00:00:00 [facility] Influenza Virus 2012-06-13 Completed [facility] Vaccine 00:00:00 [facility] Influenza Virus 2012-06-13 Completed [facility] Vaccine 00:00:00 [facility] Influenza Virus 2012-06-13 Completed [facility] Vaccine 00:00:00 [facility] Influenza Virus 2012-06-13 Completed [facility] Vaccine 00:00:00 [facility] Influenza Virus 2012-06-13 Completed [facility] Vaccine 00:00:00 [facility] Influenza Virus 2012-06-13 Completed [facility] Vaccine 00:00:00 [facility] Influenza Virus 2012-06-13 Completed [facility] Vaccine 00:00:00 [facility] Influenza Virus 2012-06-13 Completed [facility] Vaccine 00:00:00 [facility] Influenza Virus 2012-06-13 Completed [facility] Vaccine 00:00:00 [facility] Influenza Virus 2012-06-13 Completed [facility] Vaccine 00:00:00 [facility] Influenza Virus 2012-06-13 Completed [facility] Vaccine 00:00:00 [facility] Influenza Virus 2012-06-13 Completed [facility] Vaccine 00:00:00 [facility] Influenza Virus 2012-06-13 Completed [facility] Vaccine 00:00:00 [facility] Influenza Virus 2012-06-13 Completed [facility] Vaccine 00:00:00 [facility] Influenza Virus 2012-06-13 Completed [facility] Vaccine 00:00:00 [facility] Influenza Virus 2012-06-13 Completed [facility] Vaccine 00:00:00 [facility] Influenza Virus 2012-06-13 Completed [facility] Vaccine 00:00:00 [facility] Influenza Virus 2012-06-13 Completed [facility] Vaccine 00:00:00 [facility] Influenza Virus 2012-06-13 Completed [facility] Vaccine 00:00:00 [facility] Influenza Virus 2012-06-13 Completed [facility] Vaccine 00:00:00 [facility] Influenza Virus 2012-06-13 Completed [facility] Vaccine 00:00:00 [facility] Influenza Virus 2012-06-13 Completed [facility] Vaccine 00:00:00 [facility] Influenza Virus 2012-06-13 Completed [facility] Vaccine 00:00:00 [facility] Influenza Virus 2012-06-13 Completed [facility] Vaccine 00:00:00 [facility] Influenza Virus 2012-06-13 Completed [facility] Vaccine 00:00:00 [facility] Influenza Virus 2012-06-13 Completed [facility] Vaccine 00:00:00 [facility] Influenza Virus 2012-06-13 Completed [facility] Vaccine 00:00:00 [facility] Influenza Virus 2012-06-13 Completed [facility] Vaccine 00:00:00 [facility] Influenza Virus 2012-06-13 Completed [facility] Vaccine 00:00:00 [facility] Influenza Virus 2012-06-13 Completed [facility] Vaccine 00:00:00 [facility] Influenza Virus 2012-06-13 Completed [facility] Vaccine 00:00:00 [facility] Influenza Virus 2012-06-13 Completed [facility] Vaccine 00:00:00 [facility] Influenza Virus 2012-06-13 Completed [facility] Vaccine 00:00:00 [facility] Influenza Virus 2012-06-13 Completed [facility] Vaccine 00:00:00 [facility] Influenza Virus 2012-06-13 Completed [facility] Vaccine 00:00:00 [facility] Influenza Virus 2012-06-13 Completed [facility] Vaccine 00:00:00 [facility] Influenza Virus 2012-06-13 Completed [facility] Vaccine 00:00:00 [facility] Influenza Virus 2012-06-13 Completed [facility] Vaccine 00:00:00 [facility] Influenza Virus 2012-06-13 Completed [facility] Vaccine 00:00:00 [facility] Influenza Virus 2012-06-13 Completed [facility] Vaccine 00:00:00 [facility] Influenza Virus 2012-06-13 Completed [facility] Vaccine 00:00:00 [facility] Influenza Virus 2012-06-13 Completed [facility] Vaccine 00:00:00 [facility] Influenza Virus 2012-06-13 Completed [facility] Vaccine 00:00:00 [facility] Influenza Virus 2012-06-13 Completed [facility] Vaccine 00:00:00 [facility] Influenza Virus 2012-06-13 Completed [facility] Vaccine 00:00:00 [facility] Influenza Virus 2012-06-13 Completed [facility] Vaccine 00:00:00 [facility] Influenza Virus 2012-06-13 Completed [facility] Vaccine 00:00:00 [facility] Influenza Virus 2012-06-13 Completed [facility] Vaccine 00:00:00 [facility] Influenza Virus 2012-06-13 Completed [facility] Vaccine 00:00:00 [facility] Influenza Virus 2011-05-18 Completed [facility] Vaccine 00:00:00 [facility] Influenza Virus 2011-05-18 Completed [facility] Vaccine 00:00:00 [facility] Influenza Virus 2011-05-18 Completed [facility] Vaccine 00:00:00 [facility] Influenza Virus 2011-05-18 Completed [facility] Vaccine 00:00:00 [facility] Influenza Virus 2011-05-18 Completed [facility] Vaccine 00:00:00 [facility] Influenza Virus 2011-05-18 Completed [facility] Vaccine 00:00:00 [facility] Influenza Virus 2011-05-18 Completed [facility] Vaccine 00:00:00 [facility] Influenza Virus 2011-05-18 Completed [facility] Vaccine 00:00:00 [facility] Influenza Virus 2011-05-18 Completed [facility] Vaccine 00:00:00 [facility] Influenza Virus 2011-05-18 Completed [facility] Vaccine 00:00:00 [facility] Influenza Virus 2011-05-18 Completed [facility] Vaccine 00:00:00 [facility] Influenza Virus 2011-05-18 Completed [facility] Vaccine 00:00:00 [facility] Influenza Virus 2011-05-18 Completed [facility] Vaccine 00:00:00 [facility] Influenza Virus 2011-05-18 Completed [facility] Vaccine 00:00:00 [facility] Influenza Virus 2011-05-18 Completed [facility] Vaccine 00:00:00 [facility] Influenza Virus 2011-05-18 Completed [facility] Vaccine 00:00:00 [facility] Influenza Virus 2011-05-18 Completed [facility] Vaccine 00:00:00 [facility] Influenza Virus 2011-05-18 Completed [facility] Vaccine 00:00:00 [facility] Influenza Virus 2011-05-18 Completed [facility] Vaccine 00:00:00 [facility] Influenza Virus 2011-05-18 Completed [facility] Vaccine 00:00:00 [facility] Influenza Virus 2011-05-18 Completed [facility] Vaccine 00:00:00 [facility] Influenza Virus 2011-05-18 Completed [facility] Vaccine 00:00:00 [facility] Influenza Virus 2011-05-18 Completed [facility] Vaccine 00:00:00 [facility] Influenza Virus 2011-05-18 Completed [facility] Vaccine 00:00:00 [facility] Influenza Virus 2011-05-18 Completed [facility] Vaccine 00:00:00 [facility] Influenza Virus 2011-05-18 Completed [facility] Vaccine 00:00:00 [facility] Influenza Virus 2011-05-18 Completed [facility] Vaccine 00:00:00 [facility] Influenza Virus 2011-05-18 Completed [facility] Vaccine 00:00:00 [facility] Influenza Virus 2011-05-18 Completed [facility] Vaccine 00:00:00 [facility] Influenza Virus 2011-05-18 Completed [facility] Vaccine 00:00:00 [facility] Influenza Virus 2011-05-18 Completed [facility] Vaccine 00:00:00 [facility] Influenza Virus 2011-05-18 Completed [facility] Vaccine 00:00:00 [facility] Influenza Virus 2011-05-18 Completed [facility] Vaccine 00:00:00 [facility] Influenza Virus 2011-05-18 Completed [facility] Vaccine 00:00:00 [facility] Influenza Virus 2011-05-18 Completed [facility] Vaccine 00:00:00 [facility] Influenza Virus 2011-05-18 Completed [facility] Vaccine 00:00:00 [facility] Influenza Virus 2011-05-18 Completed [facility] Vaccine 00:00:00 [facility] Influenza Virus 2011-05-18 Completed [facility] Vaccine 00:00:00 [facility] Influenza Virus 2011-05-18 Completed [facility] Vaccine 00:00:00 [facility] Influenza Virus 2011-05-18 Completed [facility] Vaccine 00:00:00 [facility] Influenza Virus 2011-05-18 Completed [facility] Vaccine 00:00:00 [facility] Influenza Virus 2011-05-18 Completed [facility] Vaccine 00:00:00 [facility] Influenza Virus 2011-05-18 Completed [facility] Vaccine 00:00:00 [facility] Influenza Virus 2011-05-18 Completed [facility] Vaccine 00:00:00 [facility] Influenza Virus 2011-05-18 Completed [facility] Vaccine 00:00:00 [facility] Influenza Virus 2011-05-18 Completed [facility] Vaccine 00:00:00 [facility] Influenza Virus 2011-05-18 Completed [facility] Vaccine 00:00:00 [facility] Influenza Virus 2011-05-18 Completed [facility] Vaccine 00:00:00 [facility] Influenza Virus 2011-05-18 Completed [facility] Vaccine 00:00:00 [facility] Influenza Virus 2011-05-18 Completed [facility] Vaccine 00:00:00 [facility] Influenza Virus 2011-05-18 Completed [facility] Vaccine 00:00:00 [facility] Influenza Virus 2011-05-18 Completed [facility] Vaccine 00:00:00 [facility] Influenza Virus 2011-05-18 Completed [facility] Vaccine 00:00:00 [facility] Influenza Virus 2010-05-26 Completed [facility] Vaccine 00:00:00 [facility] Influenza Virus 2010-05-26 Completed [facility] Vaccine 00:00:00 [facility] Influenza Virus 2010-05-26 Completed [facility] Vaccine 00:00:00 [facility] Influenza Virus 2010-05-26 Completed [facility] Vaccine 00:00:00 [facility] Influenza Virus 2010-05-26 Completed [facility] Vaccine 00:00:00 [facility] Influenza Virus 2010-05-26 Completed [facility] Vaccine 00:00:00 [facility] Influenza Virus 2010-05-26 Completed [facility] Vaccine 00:00:00 [facility] Influenza Virus 2010-05-26 Completed [facility] Vaccine 00:00:00 [facility] Influenza Virus 2010-05-26 Completed [facility] Vaccine 00:00:00 [facility] Influenza Virus 2010-05-26 Completed [facility] Vaccine 00:00:00 [facility] Influenza Virus 2010-05-26 Completed [facility] Vaccine 00:00:00 [facility] Influenza Virus 2010-05-26 Completed [facility] Vaccine 00:00:00 [facility] Influenza Virus 2010-05-26 Completed [facility] Vaccine 00:00:00 [facility] Influenza Virus 2010-05-26 Completed [facility] Vaccine 00:00:00 [facility] Influenza Virus 2010-05-26 Completed [facility] Vaccine 00:00:00 [facility] Influenza Virus 2010-05-26 Completed [facility] Vaccine 00:00:00 [facility] Influenza Virus 2010-05-26 Completed [facility] Vaccine 00:00:00 [facility] Influenza Virus 2010-05-26 Completed [facility] Vaccine 00:00:00 [facility] Influenza Virus 2010-05-26 Completed [facility] Vaccine 00:00:00 [facility] Influenza Virus 2010-05-26 Completed [facility] Vaccine 00:00:00 [facility] Influenza Virus 2010-05-26 Completed [facility] Vaccine 00:00:00 [facility] Influenza Virus 2010-05-26 Completed [facility] Vaccine 00[facility]00:00 [facility] Influenza Virus 2010-05-26 Completed [facility] Vaccine 00:00:00 [facility] Influenza Virus 2010-05-26 Completed [facility] Vaccine 00:00:00 [facility] Influenza Virus 2010-05-26 Completed [facility] Vaccine 00:00:00 [facility] Influenza Virus 2010-05-26 Completed [facility] Vaccine 00:00:00 [facility] Influenza Virus 2010-05-26 Completed [facility] Vaccine 00:00:00 [facility] Influenza Virus 2010-05-26 Completed [facility] Vaccine 00:00:00 [facility] Influenza Virus 2010-05-26 Completed [facility] Vaccine 00:00:00 [facility] Influenza Virus 2010-05-26 Completed [facility] Vaccine 00:00:00 [facility] Influenza Virus 2010-05-26 Completed [facility] Vaccine 00:00:00 [facility] Influenza Virus 2010-05-26 Completed [facility] Vaccine 00:00:00 [facility] Influenza Virus 2010-05-26 Completed [facility] Vaccine 00:00:00 [facility] Influenza Virus 2010-05-26 Completed [facility] Vaccine 00:00:00 [facility] Influenza Virus 2010-05-26 Completed [facility] Vaccine 00:00:00 [facility] Influenza Virus 2010-05-26 Completed [facility] Vaccine 00:00:00 [facility] Influenza Virus 2010-05-26 Completed [facility] Vaccine 00:00:00 [facility] Influenza Virus 2010-05-26 Completed [facility] Vaccine 00:00:00 [facility] Influenza Virus 2010-05-26 Completed [facility] Vaccine 00:00:00 [facility] Influenza Virus 2010-05-26 Completed [facility] Vaccine 00:00:00 [facility] Influenza Virus 2010-05-26 Completed [facility] Vaccine 00:00:00 [facility] Influenza Virus 2010-05-26 Completed [facility] Vaccine 00:00:00 [facility] Influenza Virus 2010-05-26 Completed [facility] Vaccine 00:00:00 [facility] Influenza Virus 2010-05-26 Completed [facility] Vaccine 00:00:00 [facility] Influenza Virus 2010-05-26 Completed [facility] Vaccine 00:00:00 [facility] Influenza Virus 2010-05-26 Completed [facility] Vaccine 00:00:00 [facility] Influenza Virus 2010-05-26 Completed [facility] Vaccine 00:00:00 [facility] Influenza Virus 2010-05-26 Completed [facility] Vaccine 00:00:00 [facility] Influenza Virus 2010-05-26 Completed [facility] Vaccine 00:00:00 [facility] Influenza Virus 2010-05-26 Completed [facility] Vaccine 00:00:00 [facility] Influenza Virus 2010-05-26 Completed [facility] Vaccine 00:00:00 [facility] Influenza Virus 2010-05-26 Completed [facility] Vaccine 00:00:00 [facility] Influenza Virus 2010-05-26 Completed [facility] Vaccine 00:00:00 [facility] Influenza Virus 2009-06-23 Completed [facility] Vaccine 00:00:00 [facility] Influenza Virus 2009-06-23 Completed [facility] Vaccine 00:00:00 [facility] Influenza Virus 2009-06-23 Completed [facility] Vaccine 00:00:00 [facility] Influenza Virus 2009-06-23 Completed [facility] Vaccine 00:00:00 [facility] Influenza Virus 2009-06-23 Completed [facility] Vaccine 00:00:00 [facility] Influenza Virus 2009-06-23 Completed [facility] Vaccine 00:00:00 [facility] Influenza Virus 2009-06-23 Completed [facility] Vaccine 00:00:00 [facility] Influenza Virus 2009-06-23 Completed [facility] Vaccine 00:00:00 [facility] Influenza Virus 2009-06-23 Completed [facility] Vaccine 00:00:00 [facility] Influenza Virus 2009-06-23 Completed [facility] Vaccine 00:00:00 [facility] Influenza Virus 2009-06-23 Completed [facility] Vaccine 00:00:00 [facility] Influenza Virus 2009-06-23 Completed [facility] Vaccine 00:00:00 [facility] Influenza Virus 2009-06-23 Completed [facility] Vaccine 00:00:00 [facility] Influenza Virus 2009-06-23 Completed [facility] Vaccine 00:00:00 [facility] Influenza Virus 2009-06-23 Completed [facility] Vaccine 00:00:00 [facility] Influenza Virus 2009-06-23 Completed [facility] Vaccine 00:00:00 [facility] Influenza Virus 2009-06-23 Completed [facility] Vaccine 00:00:00 [facility] Influenza Virus 2009-06-23 Completed [facility] Vaccine 00:00:00 [facility] Influenza Virus 2009-06-23 Completed [facility] Vaccine 00:00:00 [facility] Influenza Virus 2009-06-23 Completed [facility] Vaccine 00:00:00 [facility] Influenza Virus 2009-06-23 Completed [facility] Vaccine 00:00:00 [facility] Influenza Virus 2009-06-23 Completed [facility] Vaccine 00:00:00 [facility] Influenza Virus 2009-06-23 Completed [facility] Vaccine 00:00:00 [facility] Influenza Virus 2009-06-23 Completed [facility] Vaccine 00:00:00 [facility] Influenza Virus 2009-06-23 Completed [facility] Vaccine 00:00:00 [facility] Influenza Virus 2009-06-23 Completed [facility] Vaccine 00:00:00 [facility] Influenza Virus 2009-06-23 Completed [facility] Vaccine 00:00:00 [facility] Influenza Virus 2009-06-23 Completed [facility] Vaccine 00:00:00 [facility] Influenza Virus 2009-06-23 Completed [facility] Vaccine 00:00:00 [facility] Influenza Virus 2009-06-23 Completed [facility] Vaccine 00:00:00 [facility] Influenza Virus 2009-06-23 Completed [facility] Vaccine 00:00:00 [facility] Influenza Virus 2009-06-23 Completed [facility] Vaccine 00:00:00 [facility] Influenza Virus 2009-06-23 Completed [facility] Vaccine 00:00:00 [facility] Influenza Virus 2009-06-23 Completed [facility] Vaccine 00:00:00 [facility] Influenza Virus 2009-06-23 Completed [facility] Vaccine 00:00:00 [facility] Influenza Virus 2009-06-23 Completed [facility] Vaccine 00:00:00 [facility] Influenza Virus 2009-06-23 Completed [facility] Vaccine 00:00:00 [facility] Influenza Virus 2009-06-23 Completed [facility] Vaccine 00:00:00 [facility] Influenza Virus 2009-06-23 Completed [facility] Vaccine 00:00:00 [facility] Influenza Virus 2009-06-23 Completed [facility] Vaccine 00:00:00 [facility] Influenza Virus 2009-06-23 Completed [facility] Vaccine 00:00:00 [facility] Influenza Virus 2009-06-23 Completed [facility] Vaccine 00:00:00 [facility] Influenza Virus 2009-06-23 Completed [facility] Vaccine 00:00:00 [facility] Influenza Virus 2009-06-23 Completed [facility] Vaccine 00:00:00 [facility] Influenza Virus 2009-06-23 Completed [facility] Vaccine 00:00:00 [facility] Influenza Virus 2009-06-23 Completed [facility] Vaccine 00:00:00 [facility] Influenza Virus 2009-06-23 Completed [facility] Vaccine 00:00:00 [facility] Influenza Virus 2009-06-23 Completed [facility] Vaccine 00:00:00 [facility] Influenza Virus 2009-06-23 Completed [facility] Vaccine 00:00:00 [facility] Influenza Virus 2009-06-23 Completed [facility] Vaccine 00:00:00 [facility] Influenza Virus 2009-06-23 Completed [facility] Vaccine 00:00:00 [facility] Influenza Virus 2009-06-23 Completed [facility] Vaccine 00:00:00 [facility] Influenza Virus 2009-06-23 Completed [facility] Vaccine 00:00:00 [facility] Influenza Virus 2009-05-20 Completed [facility] Vaccine 00:00:00 [facility] Influenza Virus 2009-05-20 Completed [facility] Vaccine 00:00:00 [facility] Influenza Virus 2009-05-20 Completed [facility] Vaccine 00:00:00 [facility] Influenza Virus 2009-05-20 Completed [facility] Vaccine 00:00:00 [facility] Influenza Virus 2009-05-20 Completed [facility] Vaccine 00:00:00 [facility] Influenza Virus 2009-05-20 Completed [facility] Vaccine 00:00:00 [facility] Influenza Virus 2009-05-20 Completed [facility] Vaccine 00:00:00 [facility] Influenza Virus 2009-05-20 Completed [facility] Vaccine 00:00:00 [facility] Influenza Virus 2009-05-20 Completed [facility] Vaccine 00:00:00 [facility] Influenza Virus 2009-05-20 Completed [facility] Vaccine 00:00:00 [facility] Influenza Virus 2009-05-20 Completed [facility] Vaccine 00:00:00 [facility] Influenza Virus 2009-05-20 Completed [facility] Vaccine 00:00:00 [facility] Influenza Virus 2009-05-20 Completed [facility] Vaccine 00:00:00 [facility] Influenza Virus 2009-05-20 Completed [facility] Vaccine 00:00:00 [facility] Influenza Virus 2009-05-20 Completed [facility] Vaccine 00:00:00 [facility] Influenza Virus 2009-05-20 Completed [facility] Vaccine 00:00:00 [facility] Influenza Virus 2009-05-20 Completed [facility] Vaccine 00:00:00 [facility] Influenza Virus 2009-05-20 Completed [facility] Vaccine 00:00:00 [facility] Influenza Virus 2009-05-20 Completed [facility] Vaccine 00:00:00 [facility] Influenza Virus 2009-05-20 Completed [facility] Vaccine 00:00:00 [facility] Influenza Virus 2009-05-20 Completed [facility] Vaccine 00:00:00 [facility] Influenza Virus 2009-05-20 Completed [facility] Vaccine 00:00:00 [facility] Influenza Virus 2009-05-20 Completed [facility] Vaccine 00:00:00 [facility] Influenza Virus 2009-05-20 Completed [facility] Vaccine 00:00:00 [facility] Influenza Virus 2009-05-20 Completed [facility] Vaccine 00:00:00 [facility] Influenza Virus 2009-05-20 Completed [facility] Vaccine 00:00:00 [facility] Influenza Virus 2009-05-20 Completed [facility] Vaccine 00:00:00 [facility] Influenza Virus 2009-05-20 Completed [facility] Vaccine 00:00:00 [facility] Influenza Virus 2009-05-20 Completed [facility] Vaccine 00:00:00 [facility] Influenza Virus 2009-05-20 Completed [facility] Vaccine 00:00:00 [facility] Influenza Virus 2009-05-20 Completed [facility] Vaccine 00:00:00 [facility] Influenza Virus 2009-05-20 Completed [facility] Vaccine 00:00:00 [facility] Influenza Virus 2009-05-20 Completed [facility] Vaccine 00:00:00 [facility] Influenza Virus 2009-05-20 Completed [facility] Vaccine 00:00:00 [facility] Influenza Virus 2009-05-20 Completed [facility] Vaccine 00:00:00 [facility] Influenza Virus 2009-05-20 Completed [facility] Vaccine 00:00:00 [facility] Influenza Virus 2009-05-20 Completed [facility] Vaccine 00:00:00 [facility] Influenza Virus 2009-05-20 Completed [facility] Vaccine 00:00:00 [facility] Influenza Virus 2009-05-20 Completed [facility] Vaccine 00:00:00 [facility] Influenza Virus 2009-05-20 Completed [facility] Vaccine 00:00:00 [facility] Influenza Virus 2009-05-20 Completed [facility] Vaccine 00:00:00 [facility] Influenza Virus 2009-05-20 Completed [facility] Vaccine 00:00:00 [facility] Influenza Virus 2009-05-20 Completed [facility] Vaccine 00:00:00 [facility] Influenza Virus 2009-05-20 Completed [facility] Vaccine 00:00:00 [facility] Influenza Virus 2009-05-20 Completed [facility] Vaccine 00:00:00 [facility] Influenza Virus 2009-05-20 Completed [facility] Vaccine 00:00:00 [facility] Influenza Virus 2009-05-20 Completed [facility] Vaccine 00:00:00 [facility] Influenza Virus 2009-05-20 Completed [facility] Vaccine 00:00:00 [facility] Influenza Virus 2009-05-20 Completed [facility] Vaccine 00:00:00 [facility] Influenza Virus 2009-05-20 Completed [facility] Vaccine 00:00:00 [facility] Influenza Virus 2009-05-20 Completed [facility] Vaccine 00:00:00 [facility] Influenza Virus 2009-05-20 Completed [facility] Vaccine 00:00:00 [facility] Influenza Virus 2009-05-20 Completed [facility] Vaccine 00:00:00 [facility] Influenza Virus 2007-06-01 Completed [facility] Vaccine 00:00:00 [facility] Influenza Virus 2007-06-01 Completed [facility] Vaccine 00:00:00 [facility] Influenza Virus 2007-06-01 Completed [facility] Vaccine 00:00:00 [facility] Influenza Virus 2007-06-01 Completed [facility] Vaccine 00:00:00 [facility] Influenza Virus 2007-06-01 Completed [facility] Vaccine 00:00:00 [facility] Influenza Virus 2007-06-01 Completed [facility] Vaccine 00:00:00 [facility] Influenza Virus 2007-06-01 Completed [facility] Vaccine 00:00:00 [facility] Influenza Virus 2007-06-01 Completed [facility] Vaccine 00:00:00 [facility] Influenza Virus 2007-06-01 Completed [facility] Vaccine 00:00:00 [facility] Influenza Virus 2007-06-01 Completed [facility] Vaccine 00:00:00 [facility] Influenza Virus 2007-06-01 Completed [facility] Vaccine 00:00:00 [facility] Influenza Virus 2007-06-01 Completed [facility] Vaccine 00:00:00 [facility] Influenza Virus 2007-06-01 Completed [facility] Vaccine 00:00:00 [facility] Influenza Virus 2007-06-01 Completed [facility] Vaccine 00:00:00 [facility] Influenza Virus 2007-06-01 Completed [facility] Vaccine 00:00:00 [facility] Influenza Virus 2007-06-01 Completed [facility] Vaccine 00:00:00 [facility] Influenza Virus 2007-06-01 Completed [facility] Vaccine 00:00:00 [facility] Influenza Virus 2007-06-01 Completed [facility] Vaccine 00:00:00 [facility] Influenza Virus 2007-06-01 Completed [facility] Vaccine 00:00:00 [facility] Influenza Virus 2007-06-01 Completed [facility] Vaccine 00:00:00 [facility] Influenza Virus 2007-06-01 Completed [facility] Vaccine 00:00:00 [facility] Influenza Virus 2007-06-01 Completed [facility] Vaccine 00:00:00 [facility] Influenza Virus 2007-06-01 Completed [facility] Vaccine 00:00:00 [facility] Influenza Virus 2007-06-01 Completed [facility] Vaccine 00:00:00 [facility] Influenza Virus 2007-06-01 Completed [facility] Vaccine 00:00:00 [facility] Influenza Virus 2007-06-01 Completed [facility] Vaccine 00:00:00 [facility] Influenza Virus 2007-06-01 Completed [facility] Vaccine 00:00:00 [facility] Influenza Virus 2007-06-01 Completed [facility] Vaccine 00:00:00 [facility] Influenza Virus 2007-06-01 Completed [facility] Vaccine 00:00:00 [facility] Influenza Virus 2007-06-01 Completed [facility] Vaccine 00:00:00 [facility] Influenza Virus 2007-06-01 Completed [facility] Vaccine 00:00:00 [facility] Influenza Virus 2007-06-01 Completed [facility] Vaccine 00:00:00 [facility] Influenza Virus 2007-06-01 Completed [facility] Vaccine 00:00:00 [facility] Influenza Virus 2007-06-01 Completed [facility] Vaccine 00:00:00 [facility] Influenza Virus 2007-06-01 Completed [facility] Vaccine 00:00:00 [facility] Influenza Virus 2007-06-01 Completed [facility] Vaccine 00:00:00 [facility] Influenza Virus 2007-06-01 Completed [facility] Vaccine 00:00:00 [facility] Influenza Virus 2007-06-01 Completed [facility] Vaccine 00:00:00 [facility] Influenza Virus 2007-06-01 Completed [facility] Vaccine 00:00:00 [facility] Influenza Virus 2007-06-01 Completed [facility] Vaccine 00:00:00 [facility] Influenza Virus 2007-06-01 Completed [facility] Vaccine 00:00:00 [facility] Influenza Virus 2007-06-01 Completed [facility] Vaccine 00:00:00 [facility] Influenza Virus 2007-06-01 Completed [facility] Vaccine 00:00:00 [facility] Influenza Virus 2007-06-01 Completed [facility] Vaccine 00:00:00 [facility] Influenza Virus 2007-06-01 Completed [facility] Vaccine 00:00:00 [facility] Influenza Virus 2007-06-01 Completed [facility] Vaccine 00:00:00 [facility] Influenza Virus 2007-06-01 Completed [facility] Vaccine 00:00:00 [facility] Influenza Virus 2007-06-01 Completed [facility] Vaccine 00:00:00 [facility] Influenza Virus 2007-06-01 Completed [facility] Vaccine 00:00:00 [facility] Influenza Virus 2007-06-01 Completed [facility] Vaccine 00:00:00 [facility] Influenza Virus 2007-06-01 Completed [facility] Vaccine 00:00:00 [facility] Influenza Virus 2007-06-01 Completed [facility] Vaccine 00:00:00 [facility] Influenza Virus 2007-06-01 Completed [facility] Vaccine 00:00:00 [facility] DTAP 2006-05-24 Completed [facility] 00:00:00 [facility] Proquad 2006-05-24 Completed [facility] of (MMR/VARICELLA) 00:00:00 [facility] Polio (IPV/OPV) 2006-05-24 Completed [facility] 00:00:00 [facility] DTAP 2006-05-24 Completed [facility] 00:00:00 [facility] Proquad 2006-05-24 Completed [facility] (MMR/VARICELLA) 00:00:00 [facility] Polio (IPV/OPV) 2006-05-24 Completed [facility] 00:00:00 [facility] DTAP 2006-05-24 Completed [facility] 00:00:00 [facility] Proquad 2006-05-24 Completed [facility] (MMR/VARICELLA) 00:00:00 [facility] Polio (IPV/OPV) 2006-05-24 Completed [facility] 00:00:00 [facility] DTAP 2006-05-24 Completed [facility] 00:00:00 [facility] Proquad 2006-05-24 Completed [facility] (MMR/VARICELLA) 00:00:00 [facility] Polio (IPV/OPV) 2006-05-24 Completed [facility] 00:00:00 [facility] DTAP 2006-05-24 Completed [facility] of 00:00:00 [facility] Proquad 2006-05-24 Completed [facility] (MMR/VARICELLA) 00:00:00 [facility] Polio (IPV/OPV) 2006-05-24 Completed [facility] 00:00:00 [facility] DTAP 2006-05-24 Completed [facility] of 00:00:00 [facility] Proquad 2006-05-24 Completed [facility] (MMR/VARICELLA) 00:00:00 [facility] Polio (IPV/OPV) 2006-05-24 Completed [facility] 00:00:00 [facility] DTAP 2006-05-24 Completed [facility] of 00:00:00 [facility] Proquad 2006-05-24 Completed [facility] of (MMR/VARICELLA) 00:00:00 [facility] Polio (IPV/OPV) 2006-05-24 Completed [facility] 00:00:00 [facility] DTAP 2006-05-24 Completed [facility] 00:00:00 [facility] Proquad 2006-05-24 Completed [facility] (MMR/VARICELLA) 00:00:00 [facility] Polio (IPV/OPV) 2006-05-24 Completed [facility] 00:00:00 [facility] DTAP 2006-05-24 Completed [facility] 00:00:00 [facility] Proquad 2006-05-24 Completed [facility] of (MMR/VARICELLA) 00:00:00 [facility] Polio (IPV/OPV) 2006-05-24 Completed [facility] 00:00:00 [facility] DTAP 2006-05-24 Completed [facility] 00:00:00 [facility] Proquad 2006-05-24 Completed [facility] (MMR/VARICELLA) 00:00:00 [facility] Polio (IPV/OPV) 2006-05-24 Completed [facility] 00:00:00 [facility] DTAP 2006-05-24 Completed [facility] of 00:00:00 [facility] Proquad 2006-05-24 Completed [facility] of (MMR/VARICELLA) 00:00:00 [facility] Polio (IPV/OPV) 2006-05-24 Completed [facility] 00:00:00 [facility] DTAP 2006-05-24 Completed [facility] of 00:00:00 [facility] Proquad 2006-05-24 Completed [facility] of (MMR/VARICELLA) 00:00:00 [facility] Polio (IPV/OPV) 2006-05-24 Completed [facility] 00:00:00 [facility] DTAP 2006-05-24 Completed [facility] of 00:00:00 [facility] Proquad 2006-05-24 Completed [facility] (MMR/VARICELLA) 00:00:00 [facility] Polio (IPV/OPV) 2006-05-24 Completed [facility] 00:00:00 [facility] DTAP 2006-05-24 Completed [facility] 00:00:00 [facility] Proquad 2006-05-24 Completed [facility] (MMR/VARICELLA) 00:00:[address] [facility] Polio (IPV/OPV) 2006-05-24 Completed [facility] 00:00:00 [facility] DTAP 2006-05-24 Completed [facility] 00:00:00 [facility] Proquad 2006-05-24 Completed [facility] of (MMR/VARICELLA) 00:00:[address] [facility] Polio (IPV/OPV) 2006-05-24 Completed [facility] 00:00:00 [facility] DTAP 2006-05-24 Completed [facility] 00:00:00 [facility] Proquad 2006-05-24 Completed [facility] of (MMR/VARICELLA) 00:00:[address] [facility] Polio (IPV/OPV) 2006-05-24 Completed [facility] 00:00:00 [facility] DTAP 2006-05-24 Completed [facility] 00:00:00 [facility] Proquad 2006-05-24 Completed [facility] of (MMR/VARICELLA) 00:00:[address] [facility] Polio (IPV/OPV) 2006-05-24 Completed [facility] 00:00:00 [facility] DTAP 2006-05-24 Completed [facility] 00:00:00 [facility] Proquad 2006-05-24 Completed [facility] of (MMR/VARICELLA) 00:00:[address] [facility] Polio (IPV/OPV) 2006-05-24 Completed [facility] 00:00:00 [facility] DTAP 2006-05-24 Completed [facility] 00:00:00 [facility] Proquad 2006-05-24 Completed [facility] (MMR/VARICELLA) 00:00:00 [facility] Polio (IPV/OPV) 2006-05-24 Completed [facility] 00:00:00 [facility] DTAP 2006-05-24 Completed [facility] 00:00:00 [facility] Proquad 2006-05-24 Completed [facility] of (MMR/VARICELLA) 00:00:[address] [facility] Polio (IPV/OPV) 2006-05-24 Completed [facility] 00:00:00 [facility] DTAP 2006-05-24 Completed [facility] 00:00:00 [facility] Proquad 2006-05-24 Completed [facility] (MMR/VARICELLA) 00:00:00 [facility] Polio (IPV/OPV) 2006-05-24 Completed [facility] 00:00:00 [facility] DTAP 2006-05-24 Completed [facility] 00:00:00 [facility] Proquad 2006-05-24 Completed [facility] (MMR/VARICELLA) 00:00:[address] [facility] Polio (IPV/OPV) 2006-05-24 Completed [facility] 00:00:00 [facility] DTAP 2006-05-24 Completed [facility] 00:00:00 [facility] Proquad 2006-05-24 Completed [facility] of (MMR/VARICELLA) 00:00:00 [facility] Polio (IPV/OPV) 2006-05-24 Completed [facility] 00:00:00 [facility] DTAP 2006-05-24 Completed [facility] 00:00:00 [facility] Proquad 2006-05-24 Completed [facility] of (MMR/VARICELLA) 00:00:00 [facility] Polio (IPV/OPV) 2006-05-24 Completed [facility] 00:00:00 [facility] DTAP 2006-05-24 Completed [facility] of 00:00:00 [facility] Proquad 2006-05-24 Completed [facility] of (MMR/VARICELLA) 00:00:00 [facility] Polio (IPV/OPV) 2006-05-24 Completed [facility] 00:00:00 [facility] DTAP 2006-05-24 Completed [facility] 00:00:00 [facility] Proquad 2006-05-24 Completed [facility] of (MMR/VARICELLA) 00:00:00 [facility] Polio (IPV/OPV) 2006-05-24 Completed [facility] 00:00:00 [facility] DTAP 2006-05-24 Completed [facility] 00:00:00 [facility] Proquad 2006-05-24 Completed [facility] of (MMR/VARICELLA) 00:00:00 [facility] Polio (IPV/OPV) 2006-05-24 Completed [facility] 00:00:00 [facility] DTAP 2006-05-24 Completed [facility] 00:00:00 [facility] Proquad 2006-05-24 Completed [facility] of (MMR/VARICELLA) 00:00:[address] [facility] Polio (IPV/OPV) 2006-05-24 Completed [facility] 00:00:00 [facility] DTAP 2006-05-24 Completed [facility] 00:00:00 [facility] Proquad 2006-05-24 Completed [facility] of (MMR/VARICELLA) 00:00:[address] [facility] Polio (IPV/OPV) 2006-05-24 Completed [facility] 00:00:00 [facility] DTAP 2006-05-24 Completed [facility] of 00:00:00 [facility] Proquad 2006-05-24 Completed [facility] of (MMR/VARICELLA) 00:00:00 [facility] Polio (IPV/OPV) 2006-05-24 Completed [facility] 00:00:00 [facility] DTAP 2006-05-24 Completed [facility] 00:00:00 [facility] Proquad 2006-05-24 Completed [facility] of (MMR/VARICELLA) 00:00:00 [facility] Polio (IPV/OPV) 2006-05-24 Completed [facility] 00:00:00 [facility] DTAP 2006-05-24 Completed [facility] 00:00:00 [facility] Proquad 2006-05-24 Completed [facility] of (MMR/VARICELLA) 00:00:[address] [facility] Polio (IPV/OPV) 2006-05-24 Completed [facility] 00:00:00 [facility] DTAP 2006-05-24 Completed [facility] of 00:00:00 [facility] Proquad 2006-05-24 Completed [facility] of (MMR/VARICELLA) 00:00:[address] [facility] Polio (IPV/OPV) 2006-05-24 Completed [facility] 00:00:00 [facility] DTAP 2006-05-24 Completed [facility] of 00:00:00 [facility] Proquad 2006-05-24 Completed [facility] of (MMR/VARICELLA) 00:00:[address] [facility] Polio (IPV/OPV) 2006-05-24 Completed [facility] 00:00:00 [facility] DTAP 2006-05-24 Completed [facility] of 00:00:00 [facility] Proquad 2006-05-24 Completed [facility] of (MMR/VARICELLA) 00:00:[address] [facility] Polio (IPV/OPV) 2006-05-24 Completed [facility] 00:00:00 [facility] DTAP 2006-05-24 Completed [facility] 00:00:00 [facility] Proquad 2006-05-24 Completed [facility] of (MMR/VARICELLA) 00:00:00 [facility] Polio (IPV/OPV) 2006-05-24 Completed [facility] 00:00:00 [facility] DTAP 2006-05-24 Completed [facility] 00:00:00 [facility] Proquad 2006-05-24 Completed [facility] of (MMR/VARICELLA) 00:00:00 [facility] Polio (IPV/OPV) 2006-05-24 Completed [facility] 00:00:00 [facility] DTAP 2006-05-24 Completed [facility] 00:00:00 [facility] Proquad 2006-05-24 Completed [facility] of (MMR/VARICELLA) 00:00:00 [facility] Polio (IPV/OPV) 2006-05-24 Completed [facility] 00:00:00 [facility] DTAP 2006-05-24 Completed [facility] 00:00:00 [facility] Proquad 2006-05-24 Completed [facility] of (MMR/VARICELLA) 00:00:00 [facility] Polio (IPV/OPV) 2006-05-24 Completed [facility] 00:00:00 [facility] DTAP 2006-05-24 Completed [facility] 00:00:00 [facility] Proquad 2006-05-24 Completed [facility] of (MMR/VARICELLA) 00:00:00 [facility] Polio (IPV/OPV) 2006-05-24 Completed [facility] 00:00:00 [facility] DTAP 2006-05-24 Completed [facility] 00:00:00 [facility] Proquad 2006-05-24 Completed [facility] of (MMR/VARICELLA) 00:00:00 [facility] Polio (IPV/OPV) 2006-05-24 Completed [facility] 00:00:00 [facility] DTAP 2006-05-24 Completed [facility] 00:00:00 [facility] Proquad 2006-05-24 Completed [facility] of (MMR/VARICELLA) 00:00:00 [facility] Polio (IPV/OPV) 2006-05-24 Completed [facility] 00:00:00 [facility] DTAP 2006-05-24 Completed [facility] 00:00:00 [facility] Proquad 2006-05-24 Completed [facility] of (MMR/VARICELLA) 00:00:00 [facility] Polio (IPV/OPV) 2006-05-24 Completed [facility] 00:00:00 [facility] DTAP 2006-05-24 Completed [facility] 00:00:00 [facility] Proquad 2006-05-24 Completed [facility] of (MMR/VARICELLA) 00:00:00 [facility] Polio (IPV/OPV) 2006-05-24 Completed [facility] 00:00:00 [facility] DTAP 2006-05-24 Completed [facility] of 00:00:00 [facility] Proquad 2006-05-24 Completed [facility] of (MMR/VARICELLA) 00:00:00 [facility] Polio (IPV/OPV) 2006-05-24 Completed [facility] 00:00:00 [facility] DTAP 2006-05-24 Completed [facility] of 00:00:00 [facility] Proquad 2006-05-24 Completed [facility] of (MMR/VARICELLA) 00:00:[address] [facility] Polio (IPV/OPV) 2006-05-24 Completed [facility] 00:00:00 [facility] DTAP 2006-05-24 Completed [facility] 00:00:00 [facility] Proquad 2006-05-24 Completed [facility] of (MMR/VARICELLA) 00:00:[address] [facility] Polio (IPV/OPV) 2006-05-24 Completed [facility] 00:00:00 [facility] DTAP 2006-05-24 Completed [facility] 00:00:00 [facility] Proquad 2006-05-24 Completed [facility] of (MMR/VARICELLA) 00:00:[address] [facility] Polio (IPV/OPV) 2006-05-24 Completed [facility] 00:00:00 [facility] DTAP 2006-05-24 Completed [facility] 00:00:00 [facility] Proquad 2006-05-24 Completed [facility] of (MMR/VARICELLA) 00:00:[address] [facility] Polio (IPV/OPV) 2006-05-24 Completed [facility] 00:00:00 [facility] DTAP 2006-05-24 Completed [facility] 00:00:00 [facility] Proquad 2006-05-24 Completed [facility] of (MMR/VARICELLA) 00:00:00 [facility] Polio (IPV/OPV) 2006-05-24 Completed [facility] 00:00:00 [facility] DTAP 2006-05-24 Completed [facility] 00:00:00 [facility] Proquad 2006-05-24 Completed [facility] of (MMR/VARICELLA) 00:00:00 [facility] Polio (IPV/OPV) 2006-05-24 Completed [facility] 00:00:00 [facility] DTAP 2006-05-24 Completed [facility] 00:00:00 [facility] Proquad 2006-05-24 Completed [facility] of (MMR/VARICELLA) 00:00:00 [facility] Polio (IPV/OPV) 2006-05-24 Completed [facility] 00:00:00 [facility] DTAP 2006-05-24 Completed [facility] 00:00:00 [facility] Proquad 2006-05-24 Completed [facility] of (MMR/VARICELLA) 00:00:00 [facility] Polio (IPV/OPV) 2006-05-24 Completed [facility] 00:00:00 [facility] HEPATITIS A 2005-05-19 Completed [facility] of 00:00:00 [facility] Influenza Virus 2005-05-19 Completed [facility] Vaccine 00:00:00 [facility] HEPATITIS A 2005-05-19 Completed [facility] 00:00:00 [facility] Influenza Virus 2005-05-19 Completed [facility] Vaccine 00:00:00 [facility] HEPATITIS A 2005-05-19 Completed [facility] 00:00:00 [facility] Influenza Virus 2005-05-19 Completed [facility] Vaccine 00:00:00 [facility] HEPATITIS A 2005-05-19 Completed [facility] 00:00:00 [facility] Influenza Virus 2005-05-19 Completed [facility] Vaccine 00:00:00 [facility] HEPATITIS A 2005-05-19 Completed [facility] 00:00:00 [facility] Influenza Virus 2005-05-19 Completed [facility] Vaccine 00:00:00 [facility] HEPATITIS A 2005-05-19 Completed [facility] 00:00:00 [facility] Influenza Virus 2005-05-19 Completed [facility] Vaccine 00:00:00 [facility] HEPATITIS A 2005-05-19 Completed [facility] 00:00:00 [facility] Influenza Virus 2005-05-19 Completed [facility] Vaccine 00:00:00 [facility] HEPATITIS A 2005-05-19 Completed [facility] 00:00:00 [facility] Influenza Virus 2005-05-19 Completed [facility] Vaccine 00:00:00 [facility] HEPATITIS A 2005-05-19 Completed [facility] of 00:00:00 [facility] Influenza Virus 2005-05-19 Completed [facility] Vaccine 00:00:00 [facility] HEPATITIS A 2005-05-19 Completed [facility] 00:00:00 [facility] Influenza Virus 2005-05-19 Completed [facility] Vaccine 00:00:00 [facility] HEPATITIS A 2005-05-19 Completed [facility] 00:00:00 [facility] Influenza Virus 2005-05-19 Completed [facility] Vaccine 00:00:00 [facility] HEPATITIS A 2005-05-19 Completed [facility] 00:00:00 [facility] Influenza Virus 2005-05-19 Completed [facility] Vaccine 00:00:00 [facility] HEPATITIS A 2005-05-19 Completed [facility] 00:00:00 [facility] Influenza Virus 2005-05-19 Completed [facility] Vaccine 00:00:00 [facility] HEPATITIS A 2005-05-19 Completed [facility] 00:00:00 [facility] Influenza Virus 2005-05-19 Completed [facility] Vaccine 00:00:00 [facility] HEPATITIS A 2005-05-19 Completed [facility] 00:00:00 [facility] Influenza Virus 2005-05-19 Completed [facility] Vaccine 00:00:00 [facility] HEPATITIS A 2005-05-19 Completed [facility] 00:00:00 [facility] Influenza Virus 2005-05-19 Completed [facility] Vaccine 00:00:00 [facility] HEPATITIS A 2005-05-19 Completed [facility] 00:00:00 [facility] Influenza Virus 2005-05-19 Completed [facility] Vaccine 00:00:00 [facility] HEPATITIS A 2005-05-19 Completed [facility] 00:00:00 [facility] Influenza Virus 2005-05-19 Completed [facility] Vaccine 00:00:00 [facility] HEPATITIS A 2005-05-19 Completed [facility] 00:00:00 [facility] Influenza Virus 2005-05-19 Completed [facility] Vaccine 00:00:00 [facility] HEPATITIS A 2005-05-19 Completed [facility] 00:00:00 [facility] Influenza Virus 2005-05-19 Completed [facility] Vaccine 00:00:00 [facility] HEPATITIS A 2005-05-19 Completed [facility] 00:00:00 [facility] Influenza Virus 2005-05-19 Completed [facility] Vaccine 00:00:00 [facility] HEPATITIS A 2005-05-19 Completed [facility] 00:00:00 [facility] Influenza Virus 2005-05-19 Completed [facility] Vaccine 00:00:00 [facility] HEPATITIS A 2005-05-19 Completed [facility] 00:00:00 [facility] Influenza Virus 2005-05-19 Completed [facility] Vaccine 00:00:00 [facility] HEPATITIS A 2005-05-19 Completed [facility] 00:00:00 [facility] Influenza Virus 2005-05-19 Completed [facility] Vaccine 00:00:00 [facility] HEPATITIS A 2005-05-19 Completed [facility] 00:00:00 [facility] Influenza Virus 2005-05-19 Completed [facility] Vaccine 00:00:00 [facility] HEPATITIS A 2005-05-19 Completed [facility] 00:00:00 [facility] Influenza Virus 2005-05-19 Completed [facility] Vaccine 00:00:00 [facility] HEPATITIS A 2005-05-19 Completed [facility] 00:00:00 [facility] Influenza Virus 2005-05-19 Completed [facility] Vaccine 00:00:00 [facility] HEPATITIS A 2005-05-19 Completed [facility] 00:00:00 [facility] Influenza Virus 2005-05-19 Completed [facility] Vaccine 00:00:00 [facility] HEPATITIS A 2005-05-19 Completed [facility] 00:00:00 [facility] Influenza Virus 2005-05-19 Completed [facility] Vaccine 00:00:00 [facility] HEPATITIS A 2005-05-19 Completed [facility] 00:00:00 [facility] Influenza Virus 2005-05-19 Completed [facility] Vaccine 00:00:00 [facility] HEPATITIS A 2005-05-19 Completed [facility] 00:00:00 [facility] Influenza Virus 2005-05-19 Completed [facility] Vaccine 00:00:00 [facility] HEPATITIS A 2005-05-19 Completed [facility] 00:00:00 [facility] Influenza Virus 2005-05-19 Completed [facility] Vaccine 00:00:00 [facility] HEPATITIS A 2005-05-19 Completed [facility] 00:00:00 [facility] Influenza Virus 2005-05-19 Completed [facility] Vaccine 00:00:00 [facility] HEPATITIS A 2005-05-19 Completed [facility] 00:00:00 [facility] Influenza Virus 2005-05-19 Completed [facility] Vaccine 00:00:00 [facility] HEPATITIS A 2005-05-19 Completed [facility] 00:00:00 [facility] Influenza Virus 2005-05-19 Completed [facility] Vaccine 00:00:00 [facility] HEPATITIS A 2005-05-19 Completed [facility] 00:00:00 [facility] Influenza Virus 2005-05-19 Completed [facility] Vaccine 00:00:00 [facility] HEPATITIS A 2005-05-19 Completed [facility] 00:00:00 [facility] Influenza Virus 2005-05-19 Completed [facility] Vaccine 00:00:00 [facility] HEPATITIS A 2005-05-19 Completed [facility] 00:00:00 [facility] Influenza Virus 2005-05-19 Completed [facility] Vaccine 00:00:00 [facility] HEPATITIS A 2005-05-19 Completed [facility] 00:00:00 [facility] Influenza Virus 2005-05-19 Completed [facility] Vaccine 00:00:00 [facility] HEPATITIS A 2005-05-19 Completed [facility] 00:00:00 [facility] Influenza Virus 2005-05-19 Completed [facility] Vaccine 00:00:00 [facility] HEPATITIS A 2005-05-19 Completed [facility] 00:00:00 [facility] Influenza Virus 2005-05-19 Completed [facility] Vaccine 00:00:00 [facility] HEPATITIS A 2005-05-19 Completed [facility] 00:00:00 [facility] Influenza Virus 2005-05-19 Completed [facility] Vaccine 00:00:00 [facility] HEPATITIS A 2005-05-19 Completed [facility] 00:00:00 [facility] Influenza Virus 2005-05-19 Completed [facility] Vaccine 00:00:00 [facility] HEPATITIS A 2005-05-19 Completed [facility] 00:00:00 [facility] Influenza Virus 2005-05-19 Completed [facility] Vaccine 00:00:00 [facility] HEPATITIS A 2005-05-19 Completed [facility] 00:00:00 [facility] Influenza Virus 2005-05-19 Completed [facility] Vaccine 00:00:00 [facility] HEPATITIS A 2005-05-19 Completed [facility] 00:00:00 [facility] Influenza Virus 2005-05-19 Completed [facility] Vaccine 00:00:00 [facility] HEPATITIS A 2005-05-19 Completed [facility] 00:00:00 [facility] Influenza Virus 2005-05-19 Completed [facility] Vaccine 00:00:00 [facility] HEPATITIS A 2005-05-19 Completed [facility] 00:00:00 [facility] Influenza Virus 2005-05-19 Completed [facility] Vaccine 00:00:00 [facility] HEPATITIS A 2005-05-19 Completed [facility] 00:00:00 [facility] Influenza Virus 2005-05-19 Completed [facility] Vaccine 00:00:00 [facility] HEPATITIS A 2005-05-19 Completed [facility] 00:00:00 [facility] Influenza Virus 2005-05-19 Completed [facility] Vaccine 00:00:00 [facility] HEPATITIS A 2005-05-19 Completed [facility] 00:00:00 [facility] Influenza Virus 2005-05-19 Completed [facility] Vaccine 00:00:00 [facility] HEPATITIS A 2005-05-19 Completed [facility] 00:00:00 [facility] Influenza Virus 2005-05-19 Completed [facility] Vaccine 00:00:00 [facility] HEPATITIS A 2005-05-19 Completed [facility] 00:00:00 [facility] Influenza Virus 2005-05-19 Completed [facility] Vaccine 00:00:00 [facility] HEPATITIS A 2004-05-17 Completed [facility] 00:00:00 [facility] HEPATITIS A 2004-05-17 Completed [facility] 00:00:00 [facility] HEPATITIS A 2004-05-17 Completed [facility] 00:00:00 [facility] HEPATITIS A 2004-05-17 Completed [facility] 00:00:00 [facility] HEPATITIS A 2004-05-17 Completed [facility] 00:00:00 [facility] HEPATITIS A 2004-05-17 Completed [facility] 00:00:00 [facility] HEPATITIS A 2004-05-17 Completed [facility] 00:00:00 [facility] HEPATITIS A 2004-05-17 Completed [facility] 00:00:00 [facility] HEPATITIS A 2004-05-17 Completed [facility] 00:00:00 [facility] HEPATITIS A 2004-05-17 Completed [facility] 00:00:00 [facility] HEPATITIS A 2004-05-17 Completed [facility] 00:00:00 [facility] HEPATITIS A 2004-05-17 Completed [facility] 00:00:00 [facility] HEPATITIS A 2004-05-17 Completed [facility] 00:00:00 [facility] HEPATITIS A 2004-05-17 Completed [facility] 00:00:00 [facility] HEPATITIS A 2004-05-17 Completed [facility] 00:00:00 [facility] HEPATITIS A 2004-05-17 Completed [facility] 00:00:00 [facility] HEPATITIS A 2004-05-17 Completed [facility] 00:00:00 [facility] HEPATITIS A 2004-05-17 Completed [facility] 00:00:00 [facility] HEPATITIS A 2004-05-17 Completed [facility] 00:00:00 [facility] HEPATITIS A 2004-05-17 Completed [facility] 00:00:00 [facility] HEPATITIS A 2004-05-17 Completed [facility] 00:00:00 [facility] HEPATITIS A 2004-05-17 Completed [facility] 00:00:00 [facility] HEPATITIS A 2004-05-17 Completed [facility] 00:00:00 [facility] HEPATITIS A 2004-05-17 Completed [facility] 00:00:00 [facility] HEPATITIS A 2004-05-17 Completed [facility] 00:00:00 [facility] HEPATITIS A 2004-05-17 Completed [facility] 00:00:00 [facility] HEPATITIS A 2004-05-17 Completed [facility] 00:00:00 [facility] HEPATITIS A 2004-05-17 Completed [facility] 00:00:00 [facility] HEPATITIS A 2004-05-17 Completed [facility] 00:00:00 [facility] HEPATITIS A 2004-05-17 Completed [facility] 00:[facility]00 [facility] [facility]IS A 2004-05-17 Completed [facility] 00:00:00 [facility] HEPATITIS A 2004-05-17 Completed [facility] 00:00:00 [facility] HEPATITIS A 2004-05-17 Completed [facility] 00:00:00 [facility] HEPATITIS A 2004-05-17 Completed [facility] 00:00:00 [facility] HEPATITIS A 2004-05-17 Completed [facility] 00:00:00 [facility] HEPATITIS A 2004-05-17 Completed [facility] 00:00:00 [facility] HEPATITIS A 2004-05-17 Completed [facility] 00:00:00 [facility] HEPATITIS A 2004-05-17 Completed [facility] 00:00:00 [facility] HEPATITIS A 2004-05-17 Completed [facility] 00:00:00 [facility] HEPATITIS A 2004-05-17 Completed [facility] 00:00:00 [facility] HEPATITIS A 2004-05-17 Completed [facility] 00:00:00 [facility] HEPATITIS A 2004-05-17 Completed [facility] 00:00:00 [facility] HEPATITIS A 2004-05-17 Completed [facility] 00:00:00 [facility] HEPATITIS A 2004-05-17 Completed [facility] 00:00:00 [facility] HEPATITIS A 2004-05-17 Completed [facility] 00:00:00 [facility] HEPATITIS A 2004-05-17 Completed [facility] 00:00:00 [facility] HEPATITIS A 2004-05-17 Completed [facility] 00:00:00 [facility] HEPATITIS A 2004-05-17 Completed [facility] 00:00:00 [facility] HEPATITIS A 2004-05-17 Completed [facility] 00:00:00 [facility] HEPATITIS A 2004-05-17 Completed [facility] 00:00:00 [facility] HEPATITIS A 2004-05-17 Completed [facility] 00:00:00 [facility] HEPATITIS A 2004-05-17 Completed [facility] 00:00:00 [facility] HEPATITIS A 2004-05-17 Completed [facility] 00:00:00 [facility] Polio (IPV/OPV) 2003-08-21 Completed [facility] 00:00:00 [facility] Polio (IPV/OPV) 2003-08-21 Completed [facility] 00:00:00 [facility] Polio (IPV/OPV) 2003-08-21 Completed [facility] 00:00:00 [facility] Polio (IPV/OPV) 2003-08-21 Completed [facility] 00:00:00 [facility] Polio (IPV/OPV) 2003-08-21 Completed [facility] 00:00:00 [facility] Polio (IPV/OPV) 2003-08-21 Completed [facility] 00:00:00 [facility] Polio (IPV/OPV) 2003-08-21 Completed [facility] 00:00:00 [facility] Polio (IPV/OPV) 2003-08-21 Completed [facility] 00:00:00 [facility] Polio (IPV/OPV) 2003-08-21 Completed [facility] 00:00:00 [facility] Polio (IPV/OPV) 2003-08-21 Completed [facility] 00:00:00 [facility] Polio (IPV/OPV) 2003-08-21 Completed [...] Completed [facility] 00:00:00 [facility] Polio (IPV/OPV) 2003-08-21 Completed [facility] 00:00:00 [facility] Polio (IPV/OPV) 2003-08-21 Completed [facility] 00:00:00 [facility] Polio (IPV/OPV) 2003-08-21 Completed [facility] 00:00:00 [facility] Polio (IPV/OPV) 2003-08-21 Completed [facility] 00:00:00 [facility] HIB 4 Dose Schedule 2003-05-22 Completed Unive rsity of 00:00:00 [facility] MMR 2003-05-22 Completed [facility] 00:00:00 [facility] Pneumococcal 7 2003-05-22 Completed [facility] of Conjugate, PCV7 00:00:00 [facility] (Prevnar7) [facility] Varicella 2003-05-22 Completed [facility] of (varivax)(chicken 00:00:00 [place] [facility] pox) [facility] HIB 4 Dose Schedule 2003-05-22 Completed [facility]ive rsity of 00:00:00 [facility] MMR 2003-05-22 Completed [facility] 00:00:00 [facility] Pneumococcal 7 2003-05-22 Completed [facility] of Conjugate, PCV7 00:00:00 [place] [facility] (Prevnar7) [facility] Varicella 2003-05-22 Completed [facility] (varivax)(chicken 00:00:00 [place] [facility] pox[facility] HIB 4 Dose Schedule 2003-05-22 Completed [facility]ive rsity of 00:00:00 [facility] MMR 2003-05-22 Completed [facility] 00:00:00 [facility] Pneumococcal 7 2003-05-22 Completed [facility] of Conjugate, PCV7 00:00:00 [place] [facility] (Prevnar7) [facility] Varicella 2003-05-22 Completed [facility] (varivax)(chicken 00:00:00 [place] [facility] pox) [facility] HIB 4 Dose Schedule 2003-05-22 Completed [facility]ive rsity of 00:00:00 [facility] MMR 2003-05-22 Completed [facility] 00:00:00 [facility] Pneumococcal 7 2003-05-22 Completed [facility] of Conjugate, PCV7 00:00:00 [place] [facility] (Prevnar7) [facility] Varicella 2003-05-22 Completed [facility] (varivax)(chicken 00:00:00 [place] [facility] pox) [facility] HIB 4 Dose Schedule 2003-05-22 Completed [facility]ive rsity of 00:00:00 [facility] MMR 2003-05-22 Completed [facility] 00:00:00 [facility] Pneumococcal 7 2003-05-22 Completed [facility] Conjugate, PCV7 00:00:00 [place] [facility] (Prevnar7) [facility] Varicella 2003-05-22 Completed [facility] (varivax)(chicken 00:00:00 [place] [facility] pox) [facility] HIB 4 Dose Schedule 2003-05-22 Completed [facility]ive rsity of 00:00:00 [facility] MMR 2003-05-22 Completed [facility] 00:00:00 [facility] Pneumococcal 7 2003-05-22 Completed [facility] of Conjugate, PCV7 00:00:00 [place] [facility] (Prevnar7) [facility] Varicella 2003-05-22 Completed [facility] (varivax)(chicken 00:00:00 [place] [facility] pox) [facility] HIB 4 Dose Schedule 2003-05-22 Completed [facility]ive rsity of 00:00:00 [facility] MMR 2003-05-22 Completed [facility] 00:00:00 [facility] Pneumococcal 7 2003-05-22 Completed [facility] of Conjugate, PCV7 00:00:00 [place] [facility] (Prevnar7) [facility] Varicella 2003-05-22 Completed [facility] (varivax)(chicken 00:00:00 [place] [facility] pox) [facility] HIB 4 Dose Schedule 2003-05-22 Completed [facility]ive rsity of 00:00:00 [facility] MMR 2003-05-22 Completed [facility] 00:00:00 [facility] Pneumococcal 7 2003-05-22 Completed [facility] Conjugate, PCV7 00:00:00 [place] [facility] (Prevnar7) [facility] Varicella 2003-05-22 Completed [facility] (varivax)(chicken 00:00:00 [place] [facility] pox) [facility] HIB 4 Dose Schedule 2003-05-22 Completed [facility]ive rsity of 00:00:00 [facility] MMR 2003-05-22 Completed [facility] 00:00:00 [facility] Pneumococcal 7 2003-05-22 Completed [facility] of Conjugate, PCV7 00:00:00 [place] [facility] (Prevnar7[facility] Varicella 2003-05-22 Completed [facility] (varivax)(chicken 00:00:00 [place] [facility] pox) [facility] HIB 4 Dose Schedule 2003-05-22 Completed [facility]ive rsity of 00:00:00 [facility] MMR 2003-05-22 Completed [facility] 00:00:00 [facility] Pneumococcal 7 2003-05-22 Completed [facility] of Conjugate, PCV7 00:00:00 [place] [facility] (Prevnar7) [facility] Varicella 2003-05-22 Completed [facility] (varivax)(chicken 00:00:00 [place] [facility] pox) [facility] HIB 4 Dose Schedule 2003-05-22 Completed [facility]ive rsity of 00:00:00 [facility] MMR 2003-05-22 Completed [facility] 00:00:00 [facility] Pneumococcal 7 2003-05-22 Completed [facility] of Conjugate, PCV7 00:00:00 [place] [facility] (Prevnar7) [facility] Varicella 2003-05-22 Completed [facility] of (varivax)(chicken 00:00:[address] [facility] [place] [facility] pox[place] [facility] HIB 4 Dose Schedule 2003-05-22 Completed Unive rsity of 00:00:00 [facility] MMR 2003-05-22 Completed [facility] of 00:00:00 [facility] Pneumococcal 7 2003-05-22 Completed [facility] of Conjugate, PCV7 00:00:00 [place] [facility] (Prevnar7) [facility] Varicella 2003-05-22 Completed [facility] of (varivax)(chicken 00:00:[address] [facility] [place] [facility] pox[place] [facility] HIB 4 Dose Schedule 2003-05-22 Completed Unive rsity of 00:00:00 [facility] MMR 2003-05-22 Completed [facility] 00:00:00 [facility] Pneumococcal 7 2003-05-22 Completed [facility] of Conjugate, PCV7 00:00:00 [place] [facility] (Prevnar7) [facility] Varicella 2003-05-22 Completed [facility] of (varivax)(chicken 00:00:[address] [facility] [place] [facility] pox[place] [facility] HIB 4 Dose Schedule 2003-05-22 Completed Unive rsity of 00:00:00 [facility] MMR 2003-05-22 Completed [facility] of 00:00:00 [facility] Pneumococcal 7 2003-05-22 Completed [facility] of Conjugate, PCV7 00:00:00 [place] [facility] (Prevnar7[facility] Varicella 2003-05-22 Completed [facility] (varivax)(chicken 00:00:00 [place] [facility] pox) [facility] HIB 4 Dose Schedule 2003-05-22 Completed Unive rsity of 00:00:00 [facility] MMR 2003-05-22 Completed [facility] of 00:00:00 [facility] Pneumococcal 7 2003-05-22 Completed [facility] of Conjugate, PCV7 00:00:00 [place] [facility] (Prevnar7[facility] Varicella 2003-05-22 Completed [facility] (varivax)(chicken 00:00:00 [place] [facility] pox) [facility] HIB 4 Dose Schedule 2003-05-22 Completed Unive rsity of 00:00:00 [facility] MMR 2003-05-22 Completed [facility] of 00:00:00 [facility] Pneumococcal 7 2003-05-22 Completed [facility] of Conjugate, PCV7 00:00:00 [place] [facility] (Prevnar7) [facility] Varicella 2003-05-22 Completed [facility] (varivax)(chicken 00:00:00 [place] [facility] pox) [facility] HIB 4 Dose Schedule 2003-05-22 Completed Unive rsity of 00:00:00 [facility] MMR 2003-05-22 Completed [facility] of 00:00:00 [facility] Pneumococcal 7 2003-05-22 Completed [facility] of Conjugate, PCV7 00:00:00 [place] [facility] (Prevnar7) [facility] Varicella 2003-05-22 Completed [facility] (varivax)(chicken 00:00:00 [place] [facility] pox) [facility] HIB 4 Dose Schedule 2003-05-22 Completed Unive rsity of 00:00:00 [facility] MMR 2003-05-22 Completed [facility] of 00:00:00 [facility] Pneumococcal 7 2003-05-22 Completed [facility] of Conjugate, PCV7 00:00:00 [place] [facility] (Prevnar7) [facility] Varicella 2003-05-22 Completed [facility] (varivax)(chicken 00:00:00 [place] [facility] pox) [facility] HIB 4 Dose Schedule 2003-05-22 Completed Unive rsity of 00:00:00 [facility] MMR 2003-05-22 Completed [facility] of 00:00:00 [facility] Pneumococcal 7 2003-05-22 Completed [facility] of Conjugate, PCV7 00:00:00 [place] [facility] (Prevnar7) [facility] Varicella 2003-05-22 Completed [facility] (varivax)(chicken 00:00:00 [place] [facility] pox) [facility] HIB 4 Dose Schedule 2003-05-22 Completed Unive rsity of 00:00:00 [facility] MMR 2003-05-22 Completed [facility] of 00:00:00 [facility] Pneumococcal 7 2003-05-22 Completed [facility] of Conjugate, PCV7 00:00:00 [place] [facility] (Prevnar7) [facility] Varicella 2003-05-22 Completed [facility] of (varivax)(chicken 00:00:[address] [facility] [place] [facility] pox[place] [facility] HIB 4 Dose Schedule 2003-05-22 Completed Unive rsity of 00:00:00 [facility] MMR 2003-05-22 Completed [facility] of 00:00:00 [facility] Pneumococcal 7 2003-05-22 Completed [facility] of Conjugate, PCV7 00:00:00 [place] [facility] (Prevnar7) [facility] Varicella 2003-05-22 Completed [facility] of (varivax)(chicken 00:00:[address] [facility] [place] [facility] pox[place] [facility] HIB 4 Dose Schedule 2003-05-22 Completed Unive rsity of 00:00:00 [facility] MMR 2003-05-22 Completed [facility] 00:00:00 [facility] Pneumococcal 7 2003-05-22 Completed [facility] of Conjugate, PCV7 00:00:00 [place] [facility] (Prevnar7) [facility] Varicella 2003-05-22 Completed [facility] of (varivax)(chicken 00:00:[address] [facility] [place] [facility] pox[place] [facility] HIB 4 Dose Schedule 2003-05-22 Completed Unive rsity of 00:00:00 [facility] MMR 2003-05-22 Completed [facility] of 00:00:00 [facility] Pneumococcal 7 2003-05-22 Completed [facility] of Conjugate, PCV7 00:00:00 [place] [facility] (Prevnar7) [facility] Varicella 2003-05-22 Completed [facility] of (varivax)(chicken 00:00:[address] [facility] [place] [facility] pox[place] [facility] HIB 4 Dose Schedule 2003-05-22 Completed Unive rsity of 00:00:00 [facility] MMR 2003-05-22 Completed [facility] of 00:00:00 [facility] Pneumococcal 7 2003-05-22 Completed [facility] of Conjugate, PCV7 00:00:00 [place] [facility] (Prevnar7) [facility] Varicella 2003-05-22 Completed [facility] of (varivax)(chicken 00:00:[address] [facility] [place] [facility] pox[place] [facility] HIB 4 Dose Schedule 2003-05-22 Completed Unive rsity of 00:00:00 [facility] MMR 2003-05-22 Completed [facility] 00:00:00 [facility] Pneumococcal 7 2003-05-22 Completed [facility] Conjugate, PCV7 00:00:00 [place] [facility] (Prevnar7) [facility] Varicella 2003-05-22 Completed [facility] (varivax)(chicken 00:00:00 [place] [facility] pox) [facility] HIB 4 Dose Schedule 2003-05-22 Completed [facility]ive rsity of 00:00:00 [facility] MMR 2003-05-22 Completed [facility] 00:00:00 [facility] Pneumococcal 7 2003-05-22 Completed [facility] of Conjugate, PCV7 00:00:00 [place] [facility] (Prevnar7) [facility] Varicella 2003-05-22 Completed [facility] (varivax)(chicken 00:00:00 [place] [facility] pox) [facility] HIB 4 Dose Schedule 2003-05-22 Completed [facility]ive rsity of 00:00:00 [facility] MMR 2003-05-22 Completed [facility] 00:00:00 [facility] Pneumococcal 7 2003-05-22 Completed [facility] of Conjugate, PCV7 00:00:00 [place] [facility] (Prevnar7) [facility] Varicella 2003-05-22 Completed [facility] of (varivax)(chicken 00:00:[address] [facility] [place] [facility] pox[place] [facility] HIB 4 Dose Schedule 2003-05-22 Completed Unive rsity of 00:00:00 [facility] MMR 2003-05-22 Completed [facility] 00:00:00 [facility] Pneumococcal 7 2003-05-22 Completed [facility] of Conjugate, PCV7 00:00:00 [place] [facility] (Prevnar7) [facility] Varicella 2003-05-22 Completed [facility] (varivax)(chicken 00:00:00 [place] [facility] pox) [facility] HIB 4 Dose Schedule 2003-05-22 Completed [facility]ive rsity of 00:00:00 [facility] MMR 2003-05-22 Completed [facility] of 00:00:00 [facility] Pneumococcal 7 2003-05-22 Completed [facility] of Conjugate, PCV7 00:00:00 [place] [facility] (Prevnar7) [facility] Varicella 2003-05-22 Completed [facility] (varivax)(chicken 00:00:00 [place] [facility] pox) [facility] HIB 4 Dose Schedule 2003-05-22 Completed [facility] rsity of 00:00:00 [facility] MMR 2003-05-22 Completed [facility] of 00:00:00 [facility] Pneumococcal 7 2003-05-22 Completed [facility] of Conjugate, PCV7 00:00:00 [place] [facility] (Prevnar7) [facility] Varicella 2003-05-22 Completed [facility] (varivax)(chicken 00:00:00 [place] [facility] pox) [facility] HIB 4 Dose Schedule 2003-05-22 Completed [facility]ive rsity of 00:00:00 [facility] MMR 2003-05-22 Completed [facility] of 00:00:00 [facility] Pneumococcal 7 2003-05-22 Completed [facility] of Conjugate, PCV7 00:00:00 [place] [facility] (Prevnar7) [facility] Varicella 2003-05-22 Completed [facility] of (varivax)(chicken 00:00:[address] [facility] [place] [facility] pox[place] [facility] HIB 4 Dose Schedule 2003-05-22 Completed [facility]ive rsity of 00:00:00 [facility] MMR 2003-05-22 Completed [facility] of 00:00:00 [facility] Pneumococcal 7 2003-05-22 Completed [facility] of Conjugate, PCV7 00:00:00 [place] [facility] (Prevnar7) [facility] Varicella 2003-05-22 Completed [facility] of (varivax)(chicken 00:00:[address] [facility] [place] [facility] pox[place] [facility] HIB 4 Dose Schedule 2003-05-22 Completed [facility]ive rsity of 00:00:00 [facility] MMR 2003-05-22 Completed [facility] of 00:00:00 [facility] Pneumococcal 7 2003-05-22 Completed [facility] of Conjugate, PCV7 00:00:00 [place] [facility] (Prevnar7) [facility] Varicella 2003-05-22 Completed [facility] (varivax)(chicken 00:00:00 [place] [facility] pox) [facility] HIB 4 Dose Schedule 2003-05-22 Completed [facility]ive rsity of 00:00:00 [facility] MMR 2003-05-22 Completed [facility] of 00:00:00 [facility] Pneumococcal 7 2003-05-22 Completed [facility] of Conjugate, PCV7 00:00:00 [place] [facility] (Prevnar7) [facility] Varicella 2003-05-22 Completed [facility] of (varivax)(chicken 00:00:[address] [facility] [place] [facility] pox[place] [facility] HIB 4 Dose Schedule 2003-05-22 Completed [facility]ive rsity of 00:00:00 [facility] MMR 2003-05-22 Completed [facility] of 00:00:00 [facility] Pneumococcal 7 2003-05-22 Completed [facility] of Conjugate, PCV7 00:00:00 [place] [facility] (Prevnar7) [facility] Varicella 2003-05-22 Completed [facility] (varivax)(chicken 00:00:00 [place] [facility] pox) [facility] DTAP 2003-01-01 Completed [facility] 00:00:00 [facility] HIB 4 Dose Schedule 2003-01-01 Completed [facility]ive rsity of 00:00:00 [facility] Hep B, Adol or Pedi 2003-01-01 Completed Unive rsity of Dosage 00:00:00 [facility] Pneumococcal 7 2003-01-01 Completed [facility] of Conjugate, PCV7 00:00:00 [place] [facility] (Prevnar7) [facility] DTAP 2003-01-01 Completed [facility] 00:00:00 [facility] HIB 4 Dose Schedule 2003-01-01 Completed [facility]ive rsity of 00:00:00 [facility] Hep B, Adol or Pedi 2003-01-01 Completed Unive rsity of Dosage 00:00:00 [facility] Pneumococcal 7 2003-01-01 Completed [facility] of Conjugate, PCV7 00:00:00 [place] [facility] (Prevnar7) [facility] DTAP 2003-01-01 Completed [facility] 00:00:00 [facility] HIB 4 Dose Schedule 2003-01-01 Completed [facility]ive rsity of 00:00:00 [facility] Hep B, Adol or Pedi 2003-01-01 Completed Unive rsity of Dosage 00:00:00 [facility] Pneumococcal 7 2003-01-01 Completed [facility] of Conjugate, PCV7 00:00:00 [place] [facility] (Prevnar7) [facility] DTAP 2003-01-01 Completed [facility] 00:00:00 [facility] HIB 4 Dose Schedule 2003-01-01 Completed [facility]ive rsity of 00:00:00 [facility] Hep B, Adol or Pedi 2003-01-01 Completed Unive rsity of Dosage 00:00:00 [facility] Pneumococcal 7 2003-01-01 Completed [facility] of Conjugate, PCV7 00:00:00 [place] [facility] (Prevnar7) [facility] DTAP 2003-01-01 Completed [facility] 00:00:00 [facility] HIB 4 Dose Schedule 2003-01-01 Completed [facility]ive rsity of 00:00:00 [facility] Hep B, Adol or Pedi 2003-01-01 Completed Unive rsity of Dosage 00:00:00 [facility] Pneumococcal 7 2003-01-01 Completed [facility] Conjugate, PCV7 00:00:00 [place] [facility] (Prevnar7) [facility] DTAP 2003-01-01 Completed [facility] 00:00:00 [facility] HIB 4 Dose Schedule 2003-01-01 Completed [facility]ive rsity of 00:00:00 [facility] Hep B, Adol or Pedi 2003-01-01 Completed Unive rsity of Dosage 00:00:00 [facility] Pneumococcal 7 2003-01-01 Completed [facility] of Conjugate, PCV7 00:00:00 [place] [facility] (Prevnar7) [facility] DTAP 2003-01-01 Completed [facility] 00:00:00 [facility] HIB 4 Dose Schedule 2003-01-01 Completed [facility] rsity of 00:00:00 [facility] Hep B, Adol or Pedi 2003-01-01 Completed Unive rsity of Dosage 00:00:00 [facility] Pneumococcal 7 2003-01-01 Completed [facility] of Conjugate, PCV7 00:00:00 [place] [facility] (Prevnar7) [facility] DTAP 2003-01-01 Completed [facility] 00:00:00 [facility] HIB 4 Dose Schedule 2003-01-01 Completed [facility]ive rsity of 00:00:00 [facility] Hep B, Adol or Pedi 2003-01-01 Completed Unive rsity of Dosage 00:00:00 [facility] Pneumococcal 7 2003-01-01 Completed [facility] of Conjugate, PCV7 00:00:00 [place] [facility] (Prevnar7) [facility] DTAP 2003-01-01 Completed [facility] 00:00:00 [facility] HIB 4 Dose Schedule 2003-01-01 Completed [facility]ive rsity of 00:00:00 [facility] Hep B, Adol or Pedi 2003-01-01 Completed Unive rsity of Dosage 00:00:00 [facility] Pneumococcal 7 2003-01-01 Completed [facility] of Conjugate, PCV7 00:00:00 [place] [facility] (Prevnar7) [facility] DTAP 2003-01-01 Completed [facility] 00:00:00 [facility] HIB 4 Dose Schedule 2003-01-01 Completed [facility]ive rsity of 00:00:00 [facility] Hep B, Adol or Pedi 2003-01-01 Completed Unive rsity of Dosage 00:00:00 [facility] Pneumococcal 7 2003-01-01 Completed [facility] of Conjugate, PCV7 00:00:00 [place] [facility] (Prevnar7) [facility] DTAP 2003-01-01 Completed [facility] 00:00:00 [facility] HIB 4 Dose Schedule 2003-01-01 Completed [facility]ive rsity of 00:00:00 [facility] Hep B, Adol or Pedi 2003-01-01 Completed Unive rsity of Dosage 00:00:00 [facility] Pneumococcal 7 2003-01-01 Completed [facility] of Conjugate, PCV7 00:00:00 [place] [facility] (Prevnar7) [facility] DTAP 2003-01-01 Completed [facility] 00:00:00 [facility] HIB 4 Dose Schedule 2003-01-01 Completed [facility]ive rsity of 00:00:00 [facility] Hep B, Adol or Pedi 2003-01-01 Completed Unive rsity of Dosage 00:00:00 [facility] Pneumococcal 7 2003-01-01 Completed [facility] of Conjugate, PCV7 00:00:00 [place] [facility] (Prevnar7) [facility] DTAP 2003-01-01 Completed [facility] 00:00:00 [facility] HIB 4 Dose Schedule 2003-01-01 Completed [facility]ive rsity of 00:00:00 [facility] Hep B, Adol or Pedi 2003-01-01 Completed [facility]ive rsity of Dosage 00:00:00 [facility] Pneumococcal 7 2003-01-01 Completed [facility] of Conjugate, PCV7 00:00:00 [place] [facility] (Prevnar7) [facility] DTAP 2003-01-01 Completed [facility] 00:00:00 [facility] HIB 4 Dose Schedule 2003-01-01 Completed [facility]ive rsity of 00:00:00 [facility] Hep B, Adol or Pedi 2003-01-01 Completed Unive rsity of Dosage 00:00:00 [facility] Pneumococcal 7 2003-01-01 Completed [facility] of Conjugate, PCV7 00:00:00 [place] [facility] (Prevnar7) [facility] DTAP 2003-01-01 Completed [facility] 00:00:00 [facility] HIB 4 Dose Schedule 2003-01-01 Completed [facility]ive rsity of 00:00:00 [facility] Hep B, Adol or Pedi 2003-01-01 Completed [facility]ive rsity of Dosage 00:00:00 [facility] Pneumococcal 7 2003-01-01 Completed [facility] of Conjugate, PCV7 00:00:00 [place] [facility] (Prevnar7) [facility] DTAP 2003-01-01 Completed [facility] 00:00:00 [facility] HIB 4 Dose Schedule 2003-01-01 Completed [facility]ive [facility]ity of 00:00:00 [facility] Hep B, Adol or Pedi 2003-01-01 Completed [facility]ive rsity of Dosage 00:00:00 [facility] Pneumococcal 7 2003-01-01 Completed [facility] of Conjugate, PCV7 00:00:00 [place] [facility] (Prevnar7) [facility] DTAP 2003-01-01 Completed [facility] 00:[facility]:00 [facility] [facility] D[facility] Schedule 2003-01-01 Completed [facility] 00:00:00 [facility] Hep B, Adol or Pedi 2003-01-01 Completed [facility] Dosage 00:00:00 [facility] Pneumococcal 7 2003-01-01 Completed [facility] Conjugate, PCV7 00:00:00 [facility] DTAP 2003-01-01 Completed [facility] 00:00:00 [facility] HIB 4 Dose Schedule 2003-01-01 Completed [facility] 00:00:00 [facility] Hep B, Adol or Pedi 2003-01-01 Completed [facility] Dosage 00:00:00 [facility] Pneumococcal 7 2003-01-01 Completed [facility] Conjugate, PCV7 00:00:00 [facility] ([facility] DTAP 2003-01-01 Completed [facility] 00:00:00 [facility] HIB 4 Dose Schedule 2003-01-01 Completed [facility] 00:00:00 [facility] Hep B, Adol or Pedi 2003-01-01 Completed [facility] Dosage 00:00:00 [facility] Pneumococcal 7 2003-01-01 Completed [facility] Conjugate, PCV7 00:00:00 [facility] ([facility] DTAP 2003-01-01 Completed [facility] 00:00:00 [facility] HIB 4 Dose Schedule 2003-01-01 Completed [facility] 00:00:00 [facility] Hep B, Adol or Pedi 2003-01-01 Completed [facility] Dosage 00:00:00 [facility] Pneumococcal 7 2003-01-01 Completed [facility] Conjugate, PCV7 00:00:00 [facility] DTAP 2003-01-01 Completed [facility] 00:00:00 [facility] HIB 4 Dose Schedule 2003-01-01 Completed [facility] 00:00:00 [facility] Hep B, Adol or Pedi 2003-01-01 Completed [facility] Dosage 00:00:00 [facility] Pneumococcal 7 2003-01-01 Completed [facility] Conjugate, PCV7 00:00:00 [place] [facility] ([facility] DTAP 2003-01-01 Completed [facility] 00:00:00 [facility] HIB 4 Dose Schedule 2003-01-01 Completed [facility] 00:00:00 [facility] Hep B, Adol or Pedi 2003-01-01 Completed [facility] Dosage 00:00:00 [facility] Pneumococcal 7 2003-01-01 Completed [facility] Conjugate, PCV7 00:00:00 [facility] (Pre[facility]ar[facility] DTAP 2003-01-01 Completed [facility] 00:00:00 [facility] HIB 4 Dose Schedule 2003-01-01 Completed [facility] 00:00:00 [facility] Hep B, Adol or Pedi 2003-01-01 Completed [facility] Dosage 00:00:00 [facility] Pneumococcal 7 2003-01-01 Completed [facility] Conjugate, PCV7 00:00:00 [facility] (Pre[facility] DTAP 2003-01-01 Completed [facility] 00:00:00 [facility] HIB 4 Dose Schedule 2003-01-01 Completed [facility] 00:00:00 [facility] Hep B, Adol or Pedi 2003-01-01 Completed [facility] Dosage 00:00:00 [facility] Pneumococcal 7 2003-01-01 Completed [facility] Conjugate, PCV7 00:00:00 [place] [facility] (Pre[facility] DTAP 2003-01-01 Completed [facility] 00:00:00 [facility] HIB 4 Dose Schedule 2003-01-01 Completed [facility] 00:00:00 [facility] Hep B, Adol or Pedi 2003-01-01 Completed [facility] Dosage 00:00:00 [facility] Pneumococcal 7 2003-01-01 Completed [facility] Conjugate, PCV7 00:00:00 [facility] (Pre[facility]ar[facility] DTAP 2003-01-01 Completed [facility] 00:00:00 [facility] HIB 4 Dose Schedule 2003-01-01 Completed [facility] 00:00:00 [facility] Hep B, Adol or Pedi 2003-01-01 Completed [facility] Dosage 00:00:00 [facility] Pneumococcal 7 2003-01-01 Completed [facility] Conjugate, PCV7 00:00:00 [facility] (Pre[facility]ar[facility] DTAP 2003-01-01 Completed [facility] 00:00:00 [facility] HIB 4 Dose Schedule 2003-01-01 Completed [facility] 00:00:00 [facility] Hep B, Adol or Pedi 2003-01-01 Completed [facility] Dosage 00:00:00 [facility] Pneumococcal 7 2003-01-01 Completed [facility] Conjugate, PCV7 00:00:00 [facility] (Pre[facility]ar[facility] DTAP 2003-01-01 Completed [facility] 00:00:00 [facility] HIB 4 Dose Schedule 2003-01-01 Completed [facility] 00:00:00 [facility] Hep B, Adol or Pedi 2003-01-01 Completed [facility] Dosage 00:00:00 [facility] Pneumococcal 7 2003-01-01 Completed [facility] Conjugate, PCV7 00:00:00 [facility] (Pre[facility]ar[facility] DTAP 2003-01-01 Completed [facility] 00:00:00 [facility] HIB 4 Dose Schedule 2003-01-01 Completed [facility] 00:00:00 [facility] Hep B, Adol or Pedi 2003-01-01 Completed [facility] Dosage 00:00:00 [facility] Pneumococcal 7 2003-01-01 Completed [facility] Conjugate, PCV7 00:00:00 [facility] (Pre[facility]ar[facility] DTAP 2003-01-01 Completed [facility] 00:00:00 [facility] HIB 4 Dose Schedule 2003-01-01 Completed [facility] 00:00:00 [facility] Hep B, Adol or Pedi 2003-01-01 Completed [facility] Dosage 00:00:00 [facility] Pneumococcal 7 2003-01-01 Completed [facility] Conjugate, PCV7 00:00:00 [facility] (Pre[facility]ar[facility] DTAP 2003-01-01 Completed [facility] 00:00:00 [facility] HIB 4 Dose Schedule 2003-01-01 Completed [facility] 00:00:00 [facility] Hep B, Adol or Pedi 2003-01-01 Completed [facility] Dosage 00:00:00 [facility] Pneumococcal 7 2003-01-01 Completed [facility] Conjugate, PCV7 00:00:00 [facility] (Prevnar[facility] DTAP 2003-01-01 Completed [facility] 00:00:00 [facility] HIB 4 Dose Schedule 2003-01-01 Completed [facility] 00:00:00 [facility] Hep B, Adol or Pedi 2003-01-01 Completed [facility] Dosage 00:00:00 [facility] Pneumococcal 7 2003-01-01 Completed [facility] Conjugate, PCV7 00:00:00 [facility] (Prevnar[facility] DTAP 2003-01-01 Completed [facility] 00:00:00 [facility] HIB 4 Dose Schedule 2003-01-01 Completed [facility] 00:00:00 [facility] Hep B, Adol or Pedi 2003-01-01 Completed [facility] Dosage 00:00:00 [facility] Pneumococcal 7 2003-01-01 Completed [facility] Conjugate, PCV7 00:00:00 [facility] (Prevnar[facility] DTAP 2003-01-01 Completed [facility] 00:00:00 [facility] HIB 4 Dose Schedule 2003-01-01 Completed [facility] 00:00:00 [facility] Hep B, Adol or Pedi 2003-01-01 Completed [facility] Dosage 00:00:00 [facility] Pneumococcal 7 2003-01-01 Completed [facility] Conjugate, PCV7 00:00:00 [facility] (Prevnar[facility] DTAP 2003-01-01 Completed [facility] 00:00:00 [facility] HIB 4 Dose Schedule 2003-01-01 Completed [facility] 00:00:00 [facility] Hep B, Adol or Pedi 2003-01-01 Completed [facility] Dosage 00:00:00 [facility] Pneumococcal 7 2003-01-01 Completed [facility] Conjugate, PCV7 00:00:00 [facility] (Prevnar7[facility] DTAP 2002 Completed [facility] 00:00:00 [facility] HIB 4 Dose Schedule 2002 Completed [facility] 00:00:00 [facility] Pneumococcal 7 2002 Completed [facility] Conjugate, PCV7 00:00:00 [facility] (Prevnar7[facility] Polio (IPV/OPV) 2002 Completed [facility] 00:00:00 [facility] DTAP 2002 Completed [facility] 00:00:00 [facility] HIB 4 Dose Schedule 2002 Completed [facility] 00:00:00 [facility] Pneumococcal 7 2002 Completed [facility] Conjugate, PCV7 00:00:00 [facility] (Prevnar[facility] Polio (IPV/OPV) 2002 Completed [facility] 00:00:00 [facility] DTAP 2002 Completed [facility] 00:00:00 [facility] HIB 4 Dose Schedule 2002 Completed [facility] 00:00:00 [facility] Pneumococcal 7 2002 Completed [facility] Conjugate, PCV7 00:00:00 [facility] (Prevnar7[facility] Polio (IPV/OPV) 2002 Completed [facility] 00:00:00 [facility] DTAP 2002 Completed [facility] 00:00:00 [facility] HIB 4 Dose Schedule 2002 Completed [facility] 00:00:00 [facility] Pneumococcal 7 2002 Completed [facility] Conjugate, PCV7 00:00:00 [facility] (Prevnar7[facility] Polio (IPV/OPV) 2002 Completed [facility] 00:00:00 [facility] DTAP 2002 Completed [facility] 00:00:00 [facility] HIB 4 Dose Schedule 2002 Completed [facility] 00:00:00 [facility] Pneumococcal 7 2002 Completed [facility] Conjugate, PCV7 00:00:00 [facility] (Prevnar7[facility] Polio (IPV/OPV) 2002 Completed [facility] 00:00:00 [facility] DTAP 2002 Completed [facility] 00:00:00 [facility] HIB 4 Dose Schedule 2002 Completed [facility] 00:00:00 [facility] Pneumococcal 7 2002 Completed [facility] Conjugate, PCV7 00:00:00 [facility] (Pre[facility]ar[facility] Polio (IPV/OPV) 2002 Completed [facility] 00:00:00 [facility] DTAP 2002 Completed [facility] 00:00:00 [facility] HIB 4 Dose Schedule 2002 Completed [facility] 00:00:00 [facility] Pneumococcal 7 2002 Completed [facility] Conjugate, PCV7 00:00:00 [facility] (Prevnar7[facility] Polio (IPV/OPV) 2002 Completed [facility] 00:00:00 [facility] DTAP 2002 Completed [facility] 00:00:00 [facility] HIB 4 Dose Schedule 2002 Completed [facility] 00:00:00 [facility] Pneumococcal 7 2002 Completed [facility] Conjugate, PCV7 00:00:00 [facility] (Prevnar7[facility] Polio (IPV/OPV) 2002 Completed [facility] 00:00:00 [facility] DTAP 2002 Completed [facility] 00:00:00 [facility] HIB 4 Dose Schedule 2002 Completed [facility] 00:00:00 [facility] Pneumococcal 7 2002 Completed [facility] Conjugate, PCV7 00:00:00 [facility] (Prevnar7[facility] Polio (IPV/OPV) 2002 Completed [facility] 00:00:00 [facility] DTAP 2002 Completed [facility] 00:00:00 [facility] HIB 4 Dose Schedule 2002 Completed [facility] 00:00:00 [facility] Pneumococcal 7 2002 Completed [facility] Conjugate, PCV7 00:00:00 [facility] (Prevnar7[facility] Polio (IPV/OPV) 2002 Completed [facility] 00:00:00 [facility] DTAP 2002 Completed [facility] 00:00:00 [facility] HIB 4 Dose Schedule 2002 Completed [facility] 00:00:00 [facility] Pneumococcal 7 2002 Completed [facility] Conjugate, PCV7 00:00:00 [facility] (Prevnar7[facility] Polio (IPV/OPV) 2002 Completed [facility] 00:00:00 [facility] DTAP 2002 Completed [facility] 00:00:00 [facility] HIB 4 Dose Schedule 2002 Completed [facility] 00:00:00 [facility] Pneumococcal 7 2002 Completed [facility] Conjugate, PCV7 00:00:00 [facility] (Prevnar7[facility] Polio (IPV/OPV) 2002 Completed [facility] 00:00:00 [facility] DTAP 2002 Completed [facility] 00:00:00 [facility] HIB 4 Dose Schedule 2002 Completed [facility] 00:00:00 [facility] Pneumococcal 7 2002 Completed [facility] Conjugate, PCV7 00:00:00 [facility] (Prevnar7) [facility] Polio (IPV/OPV) 2002 Completed [facility] 00:00:00 [facility] DTAP 2002 Completed [facility] 00:00:00 [facility] HIB 4 Dose Schedule 2002 Completed [facility] 00:00:00 [facility] Pneumococcal 7 2002 Completed [facility] Conjugate, PCV7 00:00:00 [facility] (Prevnar7) [facility] Polio (IPV/OPV) 2002 Completed [facility] 00:00:00 [facility] DTAP 2002 Completed [facility] 00:00:00 [facility] HIB 4 Dose Schedule 2002 Completed [facility] 00:00:00 [facility] Pneumococcal 7 2002 Completed [facility] Conjugate, PCV7 00:00:00 [facility] (Prevnar7) [facility] Polio (IPV/OPV) 2002 Completed [facility] 00:00:00 [facility] DTAP 2002 Completed [facility] 00:00:00 [facility] HIB 4 Dose Schedule 2002 Completed [facility] 00:00:00 [facility] Pneumococcal 7 2002 Completed [facility] Conjugate, PCV7 00:00:00 [facility] (Prevnar7) [facility] Polio (IPV/OPV) 2002 Completed [facility] 00:00:00 [facility] DTAP 2002 Completed [facility] 00:00:00 [facility] HIB 4 Dose Schedule 2002 Completed [facility] 00:00:00 [facility] Pneumococcal 7 2002 Completed [facility] Conjugate, PCV7 00:00:00 [facility] (Prevnar7[facility] Polio (IPV/OPV) 2002 Completed [facility] 00:00:00 [facility] DTAP 2002 Completed [facility] 00:00:00 [facility] HIB 4 Dose Schedule 2002 Completed [facility] 00:00:00 [facility] Pneumococcal 7 2002 Completed [facility] Conjugate, PCV7 00:00:00 [facility] (Prevnar7) [facility] Polio (IPV/OPV) 2002 Completed [facility] 00:00:00 [facility] DTAP 2002 Completed [facility] 00:00:00 [facility] HIB 4 Dose Schedule 2002 Completed [facility] 00:00:00 [facility] Pneumococcal 7 2002 Completed [facility] Conjugate, PCV7 00:00:00 [facility] (Prevnar7) [facility] Polio (IPV/OPV) 2002 Completed [facility] 00:00:00 [facility] DTAP 2002 Completed [facility] 00:00:00 [facility] HIB 4 Dose Schedule 2002 Completed [facility] 00:00:00 [facility] Pneumococcal 7 2002 Completed [facility] Conjugate, PCV7 00:00:00 [facility] (Prevnar7) [facility] Polio (IPV/OPV) 2002 Completed [facility] 00:00:00 [facility] DTAP 2002 Completed [facility] 00:00:00 [facility] HIB 4 Dose Schedule 2002 Completed [facility] 00:00:00 [facility] Pneumococcal 7 2002 Completed [facility] Conjugate, PCV7 00:00:00 [facility] (Prevnar7) [facility] Polio (IPV/OPV) 2002 Completed [facility] 00:00:00 [facility] DTAP 2002 Completed [facility] 00:00:00 [facility] HIB 4 Dose Schedule 2002 Completed [facility] 00:00:00 [facility] Pneumococcal 7 2002 Completed [facility] Conjugate, PCV7 00:00:00 [facility] (Prevnar7) [facility] Polio (IPV/OPV) 2002 Completed [facility] 00:00:00 [facility] DTAP 2002 Completed [facility] 00:00:00 [facility] HIB 4 Dose Schedule 2002 Completed [facility] 00:00:00 [facility] Pneumococcal 7 2002 Completed [facility] Conjugate, PCV7 00:00:00 [facility] (Prevnar7) [facility] Polio (IPV/OPV) 2002 Completed [facility] 00:00:00 [facility] DTAP 2002 Completed [facility] 00:00:00 [facility] HIB 4 Dose Schedule 2002 Completed [facility] 00:00:00 [facility] Pneumococcal 7 2002 Completed [facility] Conjugate, PCV7 00:00:00 [facility] (Prevnar7) [facility] Polio (IPV/OPV) 2002 Completed [facility] 00:00:00 [facility] DTAP 2002 Completed [facility] 00:00:00 [facility] HIB 4 Dose Schedule 2002 Completed [facility] 00:00:00 [facility] Pneumococcal 7 2002 Completed [facility] Conjugate, PCV7 00:00:00 [facility] (Prevnar7) [facility] Polio (IPV/OPV) 2002 Completed [facility] 00:00:00 [facility] DTAP 2002 Completed [facility] 00:00:00 [facility] HIB 4 Dose Schedule 2002 Completed [facility] 00:00:00 [facility] Pneumococcal 7 2002 Completed [facility] Conjugate, PCV7 00:00:00 [facility] (Prevnar7) [facility] Polio (IPV/OPV) 2002 Completed [facility] 00:00:00 [facility] DTAP 2002 Completed [facility] 00:00:00 [facility] HIB 4 Dose Schedule 2002 Completed [facility] 00:00:00 [facility] Pneumococcal 7 2002 Completed [facility] Conjugate, PCV7 00:00:00 [facility] (Prevnar7) [facility] Polio (IPV/OPV) 2002 Completed [facility] 00:00:00 [facility] DTAP 2002 Completed [facility] 00:00:00 [facility] HIB 4 Dose Schedule 2002 Completed [facility] 00:00:00 [facility] Pneumococcal 7 2002 Completed [facility] Conjugate, PCV7 00:00:00 [facility] (Prevnar7) [facility] Polio (IPV/OPV) 2002 Completed [facility] 00:00:00 [facility] DTAP 2002 Completed [facility] 00:00:00 [facility] HIB 4 Dose Schedule 2002 Completed [facility] 00:00:00 [facility] Pneumococcal 7 2002 Completed [facility] Conjugate, PCV7 00:00:00 [facility] (Prevnar7) [facility] Polio (IPV/OPV) 2002 Completed [facility] 00:00:00 [facility] DTAP 2002 Completed [facility] 00:00:00 [facility] HIB 4 Dose Schedule 2002 Completed [facility] 00:00:00 [facility] Pneumococcal 7 2002 Completed [facility] Conjugate, PCV7 00:00:00 [facility] (Prevnar7) [facility] Polio (IPV/OPV) 2002 Completed [facility] 00:00:00 [facility] DTAP 2002 Completed [facility] 00:00:00 [facility] HIB 4 Dose Schedule 2002 Completed [facility] 00:00:00 [facility] Pneumococcal 7 2002 Completed [facility] Conjugate, PCV7 00:00:00 [facility] (Prevnar7) [facility] Polio (IPV/OPV) 2002 Completed [facility] 00:00:00 [facility] DTAP 2002 Completed [facility] 00:00:00 [facility] HIB 4 Dose Schedule 2002 Completed [facility] 00:00:00 [facility] Pneumococcal 7 2002 Completed [facility] Conjugate, PCV7 00:00:00 [facility] (Prevnar7) [facility] Polio (IPV/OPV) 2002 Completed [facility] 00:00:00 [facility] DTAP 2002 Completed [facility] 00:00:00 [facility] HIB 4 Dose Schedule 2002 Completed [facility] 00:00:00 [facility] Pneumococcal 7 2002 Completed [facility] Conjugate, PCV7 00:00:00 [facility] (Prevnar7) [facility] Polio (IPV/OPV) 2002 Completed [facility] 00:00:00 [facility] DTAP 2002 Completed [facility] 00:00:00 [facility] HIB 4 Dose Schedule 2002 Completed [facility] 00:00:00 [facility] Pneumococcal 7 2002 Completed [facility] Conjugate, PCV7 00:00:00 [facility] ical (Prevnar7) Branch Polio (IPV/OPV) 2002 Completed [facility] 00:00:00 [facility] DTAP 2002 Completed [facility] 00:00:00 [facility] HIB 4 Dose Schedule 2002 Completed [facility] 00:00:00 [facility] Pneumococcal 7 2002 Completed [facility] Conjugate, PCV7 00:00:00 [facility] ical (Prevnar7) Branch Polio (IPV/OPV) 2002 Completed [facility] 00:00:00 [facility] DTAP 2002 Completed [facility] 00:00:00 [facility] HIB 4 Dose Schedule 2002 Completed [facility] 00:00:00 [facility] Hep B, Adol or Pedi 2002 Completed [facility] Dosage 00:00:00 [facility] Polio (IPV/OPV) 2002 Completed [facility] 00:00:00 [facility] DTAP 2002 Completed [facility] 00:00:00 [facility] HIB 4 Dose Schedule 2002 Completed [facility] 00:00:00 [facility] Hep B, Adol or Pedi 2002 Completed [facility] Dosage 00:00:00 [facility] Polio (IPV/OPV) 2002 Completed [facility] 00:00:00 [facility] DTAP 2002 Completed [facility] 00:00:00 [facility] HIB 4 Dose Schedule 2002 Completed [facility] 00:00:00 [facility] Hep B, Adol or Pedi 2002 Completed [facility] Dosage 00:00:00 [facility] Polio (IPV/OPV) 2002 Completed [facility] 00:00:00 [facility] DTAP 2002 Completed [facility] 00:00:00 [facility] HIB 4 Dose Schedule 2002 Completed [facility] 00:00:00 [facility] Hep B, Adol or Pedi 2002 Completed [facility] Dosage 00:00:00 [facility] Polio (IPV/OPV) 2002 Completed [facility] 00:00:00 [facility] DTAP 2002 Completed [facility] 00:00:00 [facility] HIB 4 Dose Schedule 2002 Completed [facility] 00:00:00 [facility] Hep B, Adol or Pedi 2002 Completed [facility] Dosage 00:00:00 [facility] Polio (IPV/OPV) 2002 Completed [facility] 00:00:00 [facility] DTAP 2002 Completed [facility] 00:00:00 [facility] HIB 4 Dose Schedule 2002 Completed [facility] 00:00:00 [facility] Hep B, Adol or Pedi 2002 Completed [facility] Dosage 00:00:00 [facility] Polio (IPV/OPV) 2002 Completed [facility] 00:00:00 [facility] DTAP 2002 Completed [facility] 00:00:00 [facility] HIB 4 Dose Schedule 2002 Completed [facility] 00:00:00 [facility] Hep B, Adol or Pedi 2002 Completed [facility] Dosage 00:00:00 [facility] Polio (IPV/OPV) 2002 Completed [facility] 00:00:00 [facility] DTAP 2002 Completed [facility] 00:00:00 [facility] HIB 4 Dose Schedule 2002 Completed [facility] 00:00:00 [facility] Hep B, Adol or Pedi 2002 Completed [facility] Dosage 00:00:00 [facility] Polio (IPV/OPV) 2002 Completed [facility] 00:00:00 [facility] DTAP 2002 Completed [facility] 00:00:00 [facility] HIB 4 Dose Schedule 2002 Completed [facility] 00:00:00 [facility] Hep B, Adol or Pedi 2002 Completed [facility] Dosage 00:00:00 [facility] Polio (IPV/OPV) 2002 Completed [facility] 00:00:00 [facility] DTAP 2002 Completed [facility] 00:00:00 [facility] HIB 4 Dose Schedule 2002 Completed [facility] 00:00:00 [facility] Hep B, Adol or Pedi 2002 Completed [facility] Dosage 00:00:00 [facility] Polio (IPV/OPV) 2002 Completed [facility] 00:00:00 [facility] DTAP 2002 Completed [facility] 00:00:00 [facility] HIB 4 Dose Schedule 2002 Completed [facility] 00:00:00 [facility] Hep B, Adol or Pedi 2002 Completed [facility] Dosage 00:00:00 [facility] Polio (IPV/OPV) 2002 Completed [facility] 00:00:00 [facility] DTAP 2002 Completed [facility] 00:00:00 [facility] HIB 4 Dose Schedule 2002 Completed [facility] 00:00:00 [facility] Hep B, Adol or Pedi 2002 Completed [facility] Dosage 00:00:00 [facility] Polio (IPV/OPV) 2002 Completed [facility] 00:00:00 [facility] DTAP 2002 Completed [facility] 00:00:00 [facility] HIB 4 Dose Schedule 2002 Completed [facility] 00:00:00 [facility] Hep B, Adol or Pedi 2002 Completed [facility] Dosage 00:00:00 [facility] Polio (IPV/OPV) 2002 Completed [facility] 00:00:00 [facility] DTAP 2002 Completed [facility] 00:00:00 [facility] HIB 4 Dose Schedule 2002 Completed [facility] 00:00:00 [facility] Hep B, Adol or Pedi 2002 Completed [facility] Dosage 00:00:00 [facility] Polio (IPV/OPV) 2002 Completed [facility] 00:00:00 [facility] DTAP 2002 Completed [facility] 00:00:00 [facility] HIB 4 Dose Schedule 2002 Completed [facility] 00:00:00 [facility] Hep B, Adol or Pedi 2002 Completed [facility] Dosage 00:00:00 [facility] Polio (IPV/OPV) 2002 Completed [facility] 00:00:00 [facility] DTAP 2002 Completed [facility] 00:00:00 [facility] HIB 4 Dose Schedule 2002 Completed [facility] 00:00:00 [facility] Hep B, Adol or Pedi 2002 Completed [facility] Dosage 00:00:00 [facility] Polio (IPV/OPV) 2002 Completed [facility] 00:00:00 [facility] DTAP 2002 Completed [facility] 00:00:00 [facility] HIB 4 Dose Schedule 2002 Completed [facility] 00:00:00 [facility] Hep B, Adol or Pedi 2002 Completed [facility] Dosage 00:00:00 [facility] Polio (IPV/OPV) 2002 Completed [facility] 00:00:00 [facility] DTAP 2002 Completed [facility] 00:00:00 [facility] HIB 4 Dose Schedule 2002 Completed [facility] 00:00:00 [facility] Hep B, Adol or Pedi 2002 Completed [facility] Dosage 00:00:00 [facility] Polio (IPV/OPV) 2002 Completed [facility] 00:00:00 [facility] DTAP 2002 Completed [facility] 00:00:00 [facility] HIB 4 Dose Schedule 2002 Completed [facility] 00:00:00 [facility] Hep B, Adol or Pedi 2002 Completed [facility] Dosage 00:00:00 [facility] Polio (IPV/OPV) 2002 Completed [facility] 00:00:00 [facility] DTAP 2002 Completed [facility] 00:00:00 [facility] HIB 4 Dose Schedule 2002 Completed [facility] 00:00:00 [facility] Hep B, Adol or Pedi 2002 Completed [facility] Dosage 00:00:00 [facility] Polio (IPV/OPV) 2002 Completed [facility] 00:00:00 [facility] DTAP 2002 Completed [facility] 00:00:00 [facility] HIB 4 Dose Schedule 2002 Completed [facility] 00:00:00 [facility] Hep B, Adol or Pedi 2002 Completed [facility] Dosage 00:00:00 [facility] Polio (IPV/OPV) 2002 Completed [facility] 00:00:00 [facility] DTAP 2002 Completed [facility] 00:00:00 [facility] HIB 4 Dose Schedule 2002 Completed [facility] 00:00:00 [facility] Hep B, Adol or Pedi 2002 Completed [facility] Dosage 00:00:00 [facility] Polio (IPV/OPV) 2002 Completed [facility] 00:00:00 [facility] DTAP 2002 Completed [facility] 00:00:00 [facility] HIB 4 Dose Schedule 2002 Completed [facility] 00:00:00 [facility] Hep B, Adol or Pedi 2002 Completed [facility] Dosage 00:00:00 [facility] Polio (IPV/OPV) 2002 Completed [facility] 00:00:00 [facility] DTAP 2002 Completed [facility] 00:00:00 [facility] HIB 4 Dose Schedule 2002 Completed [facility] 00:00:00 [facility] Hep B, Adol or Pedi 2002 Completed [facility] Dosage 00:00:00 [facility] Polio (IPV/OPV) 2002 Completed [facility] 00:00:00 [facility] DTAP 2002 Completed [facility] 00:00:00 [facility] HIB 4 Dose Schedule 2002 Completed [facility] 00:00:00 [facility] Hep B, Adol or Pedi 2002 Completed [facility] Dosage 00:00:00 [facility] Polio (IPV/OPV) 2002 Completed [facility] 00:00:00 [facility] DTAP 2002 Completed [facility] 00:00:00 [facility] HIB 4 Dose Schedule 2002 Completed [facility] 00:00:00 [facility] Hep B, Adol or Pedi 2002 Completed [facility] Dosage 00:00:00 [facility] Polio (IPV/OPV) 2002 Completed [facility] 00:00:00 [facility] DTAP 2002 Completed [facility] 00:00:00 [facility] HIB 4 Dose Schedule 2002 Completed [facility] 00:00:00 [facility] Hep B, Adol or Pedi 2002 Completed [facility] Dosage 00:00:00 [facility] Polio (IPV/OPV) 2002 Completed [facility] 00:00:00 [facility] DTAP 2002 Completed [facility] 00:00:00 [facility] HIB 4 Dose Schedule 2002 Completed [facility] 00:00:00 [facility] Hep B, Adol or Pedi 2002 Completed [facility] Dosage 00:00:00 [facility] Polio (IPV/OPV) 2002 Completed [facility] 00:00:00 [facility] DTAP 2002 Completed [facility] 00:00:00 [facility] HIB 4 Dose Schedule 2002 Completed [facility] 00:00:00 [facility] Hep B, Adol or Pedi 2002 Completed [facility] Dosage 00:00:00 [facility] Polio (IPV/OPV) 2002 Completed [facility] 00:00:00 [facility] DTAP 2002 Completed [facility] 00:00:00 [facility] HIB 4 Dose Schedule 2002 Completed [facility] 00:00:00 [facility] Hep B, Adol or Pedi 2002 Completed [facility] Dosage 00:00:00 [facility] Polio (IPV/OPV) 2002 Completed [facility] 00:00:00 [facility] DTAP 2002 Completed [facility] 00:00:00 [facility] HIB 4 Dose Schedule 2002 Completed [facility] 00:00:00 [facility] Hep B, Adol or Pedi 2002 Completed [facility] Dosage 00:00:00 [facility] Polio (IPV/OPV) 2002 Completed [facility] 00:00:00 [facility] DTAP 2002 Completed [facility] 00:00:00 [facility] HIB 4 Dose Schedule 2002 Completed [facility] 00:00:00 [facility] Hep B, Adol or Pedi 2002 Completed [facility] Dosage 00:00:00 [facility] Polio (IPV/OPV) 2002 Completed [facility] 00:00:00 [facility] DTAP 2002 Completed [facility] 00:00:00 [facility] HIB 4 Dose Schedule 2002 Completed [facility] 00:00:00 [facility] Hep B, Adol or Pedi 2002 Completed [facility] Dosage 00:00:00 [facility] Polio (IPV/OPV) 2002 Completed [facility] 00:00:00 [facility] DTAP 2002 Completed [facility] 00:00:00 [facility] HIB 4 Dose Schedule 2002 Completed [facility] 00:00:00 [facility] Hep B, Adol or Pedi 2002 Completed [facility] Dosage 00:00:00 [facility] Polio (IPV/OPV) 2002 Completed [facility] 00:00:00 [facility] DTAP 2002 Completed [facility] 00:00:00 [facility] HIB 4 Dose Schedule 2002 Completed [facility] 00:00:00 [facility] Hep B, Adol or Pedi 2002 Completed [facility] Dosage 00:00:00 [facility] Polio (IPV/OPV) 2002 Completed [facility] 00:00:00 [facility] Hep B, Adol or Pedi 2002 Completed [facility] Dosage 00:00:00 [facility] Hep B, Adol or Pedi 2002 Completed [facility] Dosage 00:00:00 [facility] Hep B, Adol or Pedi 2002 Completed [facility] Dosage 00:00:00 [facility] Hep B, Adol or Pedi 2002 Completed [facility] Dosage 00:00:00 [facility] Hep B, Adol or Pedi 2002 Completed [facility] Dosage 00:00:00 [facility] Hep B, Adol or Pedi 2002 Completed [facility] Dosage 00:00:00 [facility] Hep B, Adol or Pedi 2002 Completed [facility] Dosage 00:00:00 [facility] Hep B, Adol or Pedi 2002 Completed [facility] Dosage 00:00:00 [facility] Hep B, Adol or Pedi 2002 Completed [facility] Dosage 00:00:00 [facility] Hep B, Adol or Pedi 2002 Completed [facility] Dosage 00:00:00 [facility] Hep B, Adol or Pedi 2002 Completed [facility] Dosage 00:00:00 [facility] Hep B, Adol or Pedi 2002 Completed [facility] Dosage 00:00:00 [facility] Hep B, Adol or Pedi [...] [facility] Dosage 00:00:00 [facility] Hep B, Adol or Pedi 2002 Completed [facility] Dosage 00:00:00 [facility] Hep B, Adol or Pedi 2002 Completed [facility] Dosage 00:00:00 [facility] Hep B, Adol or Pedi 2002 Completed [facility] Dosage 00:00:00 [facility] Hep B, Adol or Pedi 2002 Completed [facility] Dosage 00:00:00 [facility] Vital Signs Vital Name Observation Time Observation Value Comments Source Body temperature 2022-06-16 35.83 Linda [facility] 17:18:00 [facility] Body height 2022-06-16 160 cm [facility] 17:18: [facility] Body weight 2022-06-16 50.44 kg [facility] 17:18:00 [facility] BMI 2022-06-16 19.70 kg/m2 [facility] :18: [facility] Systolic blood 2022-06-01 94 mm[Hg] erp informed, [place] o f pressure 05:18:00 asymptomatic [facility] Diastolic blood 2022-06-01 71 mm[Hg] erp informed, [facility] pressure 05:18:00 asymptomatic [facility] Heart rate 2022-06-01 85 /min [facility] 05:18:00 [facility] Respiratory rate 2022-06-01 18 /min [facility] 05:18:00 [facility] Oxygen saturation 2022-06-01 100 /min [facility] in Arterial blood 05:18:00 [facility] by Pulse oximetry [place] Body temperature 2022-06-01 36.5 Linda [place] of 04:31:00 [facility] Body height 2022-06-01 160 cm University [facility] 04:31:00 [facility] Body weight 2022-06-01 51.256 kg University of 04:31:00 [facility] BMI 2022-06-01 20.02 kg/m2 University of 04::00 [facility] Body temperature 2022-05-19 36.28 Linda [place] of 18:10:00 [facility] Body weight 2022-05-19 51.256 kg [place] of 18::00 [facility] BMI 2022-05-19 20.02 kg/m2 University of 18:10:00 [facility] Body temperature 2022-04-21 36.22 Linda [facility] 20:32:00 [facility] Body height 2022-04-21 160 cm University of 20:32:00 [facility] Body weight 2022-04-21 50.349 kg University of 20:32:00 [facility] BMI 2022-04-21 19.66 kg/m2 University of 20:32:00 [facility] Systolic blood 2022-04-11 110 mm[Hg] [facility] pressure 03:10:00 [facility] Diastolic blood 2022-04-11 73 mm[Hg] [facility] o f pressure 03:10:00 [facility] Heart rate 2022-04-11 88 /min [facility] of 03:10:00 [facility] Respiratory rate 2022-04-11 18 /min [facility] of 03:10:00 [facility] Oxygen saturation 2022-04-11 100 /min [facility] of in Arterial blood 03:10:00 [facility] [place] by Pulse oximetry Branch Body temperature 2022-04-10 36.28 Linda [facility] 22:10:00 [facility] Body weight 2022-04-10 49.896 kg University of 22:10:00 [facility] BMI 2022-04-10 19.80 kg/m2 University of 22:10:00 [facility] Systolic blood 2022-04-10 108 mm[Hg] [facility] pressure 21:48:00 [facility] Diastolic blood 2022-04-10 75 mm[Hg] [facility] o f pressure 21:48:00 [facility] Heart rate 2022-04-10 127 /min University of 21:48:00 [facility] Body temperature 2022-04-10 36.61 Linda [facility] 21:48:00 [facility] Respiratory rate 2022-04-10 17 /min [facility] of 21:48:00 [facility] Body height 2022-04-10 158.8 cm University of 21:48:00 [facility] Body weight 2022-04-10 49.896 kg University of 21:48:00 [facility] BMI 2022-04-10 19.80 kg/m2 University of 21:48:00 [facility] Oxygen saturation 2022-04-10 98 /min [facility] in Arterial blood 21:48:00 [facility] Systolic blood 2022-04-07 104 mm[Hg] [facility] pressure 18:00:00 [facility] Diastolic blood 2022-04-07 58 mm[Hg] University o f pressure 18:00:00 [facility] Heart rate 2022-04-07 64 /min University of 18:00:00 [facility] Body temperature 2022-04-07 36.39 Linda [facility] 18:00:00 [facility] Respiratory rate 2022-04-07 18 /min University of 18:00:00 [facility] Oxygen saturation 2022-04-07 96 /min [facility] of in Arterial blood 18:00:00 [facility] [place] by Pulse oximetry Branch Body height 2022-04-04 161.3 cm University of 23:00:18 [facility] Body weight 2022-04-04 50.349 kg University of :00: [facility] BMI 2022-04-04 19.35 kg/m2 University of 23:00: [facility] Heart rate 2022-04-04 109 /min University of :03:00 [facility] Body temperature 2022-04-04 37.72 Linda [facility] 21:03:00 [facility] Respiratory rate 2022-04-04 18 /min University of 21:03:00 [facility] Oxygen saturation 2022-04-04 95 /min University of in Arterial blood 21:03:00 [facility] by Pulse oximetry Branch Systolic blood 2022-04-04 98 mm[Hg] [facility] pressure 21:00:00 [facility] Diastolic blood 2022-04-04 64 mm[Hg] University o f pressure 21:00:00 [facility] Body height 2022-04-04 162.6 cm University of 17:44:00 [facility] Body weight 2022-04-04 50.349 kg University of 17:44:00 [facility] BMI 2022-04-04 19.05 kg/m2 University of 17:44:00 [facility] Systolic blood 2022-04-01 118 mm[Hg] [facility] of pressure 06:00:00 [facility] Diastolic blood 2022-04-01 92 mm[Hg] University o f pressure 06:00:00 [facility] Heart rate 2022-04-01 78 /min University of 06:00:00 [facility] Respiratory rate 2022-04-01 16 /min University of 06:00:00 [facility] Oxygen saturation 2022-04-01 98 /min [facility] in Arterial blood 06:00:00 [facility] by Pulse oximetry [place] Body height 2022-04-01 160 cm University of 03:48:00 [facility] Body weight 2022-04-01 56.7 kg University of 03:48:00 [facility] BMI 2022-04-01 22.14 kg/m2 University of 03:48:00 [facility] Height 2020-09-25 165.1 CM 23:56:00 Weight 2020-09-25 2.69 KG 23:56:00 Systolic blood 2022-07-25 100 mm[Hg] [facility] pressure 14:23:00 [facility] Diastolic blood 2022-07-25 78 mm[Hg] University o f pressure 14:23:00 [facility] Heart rate 2022-07-25 107 /min [facility] of 14:23:00 [facility] Respiratory rate 2022-07-25 18 /min University of 14:23:00 [facility] Body height 2022-07-25 160 cm University of 14:23:00 [facility] Body weight 2022-07-25 50.803 kg University of 14:23:00 [facility] BMI 2022-07-25 19.84 kg/m2 University of 14:23:00 [facility] Body temperature 2022-06-16 35.83 Linda [facility] 17:18:00 [facility] Body height 2022-06-16 160 cm [facility] of 17:18:00 [facility] Body weight 2022-06-16 50.44 kg University of 17:18:00 [facility] BMI 2022-06-16 19.70 kg/m2 University of 17:18:00 [facility] Systolic blood 2022-06-16 113 mm[Hg] [facility] pressure 16:33:00 [facility] Diastolic blood 2022-06-16 79 mm[Hg] [facility] o f pressure 16:33:00 [facility] Heart rate 2022-06-16 112 /min [facility] of 16:33:00 [facility] Respiratory rate 2022-06-16 18 /min University of 16:33:00 [facility] Body height 2022-06-16 160 cm [facility] of 16:33:00 [facility] Body weight 2022-06-16 51.256 kg University of 16:33:00 [facility] BMI 2022-06-16 20.02 kg/m2 University of 16:33:00 [facility] Systolic blood 2022-06-13 117 mm[Hg] [facility] pressure 16:37:00 [facility] Diastolic blood 2022-06-13 85 mm[Hg] University o f pressure 16:37:00 [facility] Heart rate 2022-06-13 118 /min University of 16:37:00 [facility] Respiratory rate 2022-06-13 18 /min University of 16:37:00 [facility] Body height 2022-06-13 160 cm University of 16:37:00 [facility] Body weight 2022-06-13 50.803 kg University of 16:37:00 [facility] BMI 2022-06-13 19.84 kg/m2 University of 16:37:00 [facility] Oxygen saturation 2022-06-01 100 /min [facility] in Arterial blood 05:18:00 [facility] by Pulse oximetry [place] Body temperature 2022-06-01 36.5 Linda [facility] 04:31:00 [facility] Systolic blood 2022-05-19 124 mm[Hg] [facility] pressure 16:06:00 [facility] Diastolic blood 2022-05-19 85 mm[Hg] [facility] o f pressure 16:06:00 [facility] Heart rate 2022-05-19 103 /min [facility] of 16:06:00 [facility] Respiratory rate 2022-05-19 18 /min [facility] of 16:06:00 [facility] Body height 2022-05-19 160 cm [facility] 16:06:00 [facility] Body weight 2022-05-19 51.256 kg University of 16:06:00 [facility] BMI 2022-05-19 20.02 kg/m2 [facility] of 16:06:00 [facility] Systolic blood 2022-05-02 115 mm[Hg] [facility] pressure 13:53:00 [facility] Diastolic blood 2022-05-02 80 mm[Hg] [facility] o f pressure 13:53:00 [facility] Heart rate 2022-05-02 103 /min [facility] of 13:53:00 [facility] Respiratory rate 2022-05-02 18 /min [facility] of 13:53:00 [facility] Body height 2022-05-02 160 cm [facility] 13:53:00 [facility] Body weight 2022-05-02 51.256 kg University of 13:53:00 [facility] BMI 2022-05-02 20.02 kg/m2 University of 13:53:00 [facility] Body temperature 2022-04-21 36.22 Linda [facility] 20:32:00 [facility] Body height 2022-04-21 160 cm [facility] 20:32:00 [facility] Body weight 2022-04-21 50.349 kg University of 20:32:00 [facility] BMI 2022-04-21 19.66 kg/m2 University of 20:32:00 [facility] Systolic blood 2022-04-21 104 mm[Hg] [facility] pressure 15:04:00 [facility] Diastolic blood 2022-04-21 71 mm[Hg] [facility] o f pressure 15:04:00 [facility] Heart rate 2022-04-21 110 /min [facility] of 15:04:00 [facility] Respiratory rate 2022-04-21 18 /min [facility] of 15:04:00 [facility] Body height 2022-04-21 157.5 cm [facility] of 15:04:00 [facility] Body weight 2022-04-21 49.896 kg University of 15:04:00 [facility] BMI 2022-04-21 20.12 kg/m2 University of 15:04:00 [facility] Systolic blood 2022-04-11 110 mm[Hg] [facility] pressure 03:10:00 [facility] Diastolic blood 2022-04-11 73 mm[Hg] [facility] o f pressure 03:10:00 [facility] Heart rate 2022-04-11 88 /min [facility] of 03:10:00 [facility] Respiratory rate 2022-04-11 18 /min [facility] of 03:10:00 [facility] Oxygen saturation 2022-04-11 100 /min [facility] in Arterial blood 03:10:00 [facility] by Pulse oximetry [place] Body temperature 2022-04-10 36.28 Linda [facility] 22:10:00 [facility] Body weight 2022-04-10 49.896 kg [facility] of 22:10:00 [facility] BMI 2022-04-10 19.80 kg/m2 [facility] 22:10:00 [facility] Body height 2022-04-10 158.8 cm [facility] of 21:48:00 [facility] Systolic blood 2022-04-06 114 mm[Hg] [facility] pressure 13:00:00 [facility] Diastolic blood 2022-04-06 71 mm[Hg] [facility] o [facility] pressure 13:00:00 [facility] Heart rate 2022-04-06 92 /min [facility] 13:00:00 [facility] Body temperature 2022-04-06 36.78 Linda [facility] 13:00:00 [facility] Respiratory rate 2022-04-06 20 /min [facility] of 13:00:00 [facility] Oxygen saturation 2022-04-06 96 /min University in Arterial blood 13:00:00 [facility] Pulse oximetry Branch Body height 2022-04-04 161.3 cm [facility] of 23:00:18 [facility] Body weight 2022-04-04 50.349 kg University of 23:00:18 [facility] BMI 2022-04-04 19.35 kg/m2 University of 23:00:18 [facility] Systolic blood 2022-03-28 116 mm[Hg] [facility] pressure 14:54:00 [facility] Diastolic blood 2022-03-28 87 mm[Hg] [facility] o f pressure 14:54:00 [facility] Heart rate 2022-03-28 113 /min [facility] of 14:54:00 [facility] Respiratory rate 2022-03-28 18 /min [facility] of 14:54:00 [facility] Body height 2022-03-28 160 cm [facility] 14:54:00 [facility] Body weight 2022-03-28 51.71 kg University of 14:54:00 [facility] BMI 2022-03-28 20.19 kg/m2 University of 14:54:00 [facility] Body temperature 2022-02-24 37 Linda [facility] 18:37:00 [facility] Body weight 2022-02-24 51.801 kg [facility] of 18:37:00 [facility] BMI 2022-02-24 20.23 kg/m2 University of 18:37:00 [facility] Systolic blood 2022-02-21 133 mm[Hg] [facility] pressure 12:51:00 [facility] Diastolic blood 2022-02-21 49 mm[Hg] [facility] o f pressure 12:51:00 [facility] Heart rate 2022-02-21 108 /min [facility] of 12:51:00 [facility] Respiratory rate 2022-02-21 18 /min [facility] 12:51:00 [facility] Body height 2022-02-21 160 cm [facility] 12:51:00 [facility] Oxygen saturation 2022-01-24 98 /min [facility] in Arterial blood 00:45:00 [facility] torito by Pulse oximetry Branch Head 2009-07-13 51 cm [facility]-frontal 18:51:00 [facility] circumference by Branch Tape measure Procedures Procedure Date / Time Performing Clinician Source Performed XR PELVIS 3+ VW 2022-06-16 17:07:12 Arnaldo [facility] XR PELVIS 3+ VW 2022-06-16 17:07:12 Arnaldo [facility] CONSENT/REFUSAL FOR 2022-06-01 04:17:40 Doctor Fidel, [facility] DIAGNOSIS AND TREATMENT [place] [facility] CONSENT/REFUSAL FOR 2022-06-01 04:17:40 Doctor Fidel, [facility] DIAGNOSIS AND TREATMENT [place] [facility] EMERGENCY SERVICES 2022-05-31 06:01:00 Doctor Fidel, [facility] AGREEMENTS AND [place] [facility] AUTHORIZATIONS XR PELVIS 3+ VW 2022-05-19 16:43:54 Arnaldo [facility] XR PELVIS 3+ VW 2022-05-19 16:43:54 Arnaldo [facility] XR PELVIS 3+ VW 2022-04-21 20:26:51 Arnaldo [facility] XR HIPS 3 VW RIGHT 2022-04-11 02:02:47 Irasema Robledo [facility] XR PELVIS <3 VW 2022-04-11 02:02:47 Irasema Robledo [facility] XR PELVIS <3 VW 2022-04-11 02:02:47 Irasema Robledo [facility] XR HIPS 3 VW RIGHT 2022-04-11 02:02:47 Irasema Robledo [facility] POCT TEST 2022-04-11 01:46:00 Irasema Robledo [facility] POCT TEST 2022-04-11 01:46:00 Irasema Robledo [facility] [place] URINALYSIS 2022-04-11 01:45:00 Venkat [facility] URINALYSIS 2022-04-11 01:45:00 Venkat [facility] COMP. METABOLIC PANEL 2022-04-10 23:02:00 Irasema Robledo [facility] ([id number]) Medical Branch CBC WITH DIFF 2022-04-10 23:02:00 Venkat [facility] CBC WITH DIFF 2022-04-10 23:02:00 Venkat [facility] COMP. METABOLIC PANEL 2022-04-10 23:02:00 Venkat [facility] ([id number]) Medical Branch EMERGENCY SERVICES 2022-04-10 05:01:00 Doctor Unassigned, [facility] AGREEMENTS AND [place] [facility] AUTHORIZATIONS EMERGENCY DEPARTMENT 2022-04-10 05:01:00 Doctor Unassigned, [facility] DOCUMENTS [place] [facility] XR CLAVICLE COMP 2022-04-05 19:40:00 Eyad Lobo [facility] BILATERAL [facility] XR CLAVICLE COMP 2022-04-05 19:40:00 Eyad Lobo [facility] BILATERAL [facility] URINALYSIS 2022-04-05 11:07:00 Greg [facility] URINALYSIS 2022-04-05 11:07:00 Greg [facility] CBC WITH DIFF 2022-04-05 10:24:[facility]OLIC PANEL 2022-04-05 10:24:00 [facility] (NA, K, CL, CO2, GLUCOSE, [place] [facility] BUN, CREATININE, CA) BASIC METABOLIC PANEL 2022-04-05 10:24:00 [facility] (NA, K, CL, CO2, GLUCOSE, [facility] BUN, CREATININE, CA) CBC WITH DIFF 2022-04-05 10:24:00 [facility] COVID-19 (ID NOW RAPID 2022-04-05 00:38:00 Jimena Ny [facility] TESTING) [place] [facility] LAB ONLY COVID 2022-04-05 00:38:00 Jimena Ny [facility] INTERPRETATION [place] [facility] COVID-19 (ID NOW RAPID 2022-04-05 00:38:00 Jimena Ny [facility] TESTING) [place] [facility] LAB ONLY COVID 2022-04-05 00:38:00 Jimena Ny [facility] INTERPRETATION [place] [facility] TROPONIN I 2022-04-05 00:25:00 Chou [facility] Andrea TROPONIN I 2022-04-05 00:25:00 Chou [facility] Andrea XR SHOULDER 2+ VW RIGHT 2022-04-05 00:11:00 Chou [facility] Andrea XR KNEE 3 VW LEFT 2022-04-05 00:11:[address] [facility] Andrea XR FOOT 3+ VW LEFT 2022-04-05 00:11:00 Chou [facility] Andrea XR PELVIS 3+ VW 2022-04-05 00:11:00 Flo [facility] Medical Branch XR KNEE <3 VW RIGHT 2022-04-05 00:11:00 Flo [facility] Medical Branch XR FOOT 3+ VW LEFT 2022-04-05 00:11:00 Chou [facility] Andrea XR KNEE <3 VW RIGHT 2022-04-05 00:11:00 Flo [facility] Medical Branch XR KNEE 3 VW LEFT 2022-04-05 00:11:00 Chou de [facility] Andrea XR PELVIS 3+ VW 2022-04-05 00:11:00 Flo [facility] Medical Branch XR SHOULDER 2+ VW RIGHT 2022-04-05 00:11:00 Chou [facility] HB ECG ROUTINE & RHYTHM 2022-04-04 23:08:36 Chou [facility] Andrea HB ECG ROUTINE & RHYTHM 2022-04-04 23:08:36 [facility] 2022-04-04 19:55:00 Nolvia Huasin o f [facility] HB ABO GROUPING 2022-04-04 19:55:00 Nolvia Husain o f [facility] CT TRAUMA HEAD WO 2022-04-04 19:10:01 Nolvia Husain [facility] CONTRAST [facility] CT TRAUMA CERVICAL SPINE 2022-04-04 19:10:01 Nolvia Husain [facility] CONTRAST Medical Branch CT TRAUMA THORACIC SPINE 2022-04-04 19:10:01 Nolvia Husain [facility] CONTRAST Medical Branch CT TRAUMA LUMBAR SPINE WO 2022-04-04 19:10:01 Nolvia Husain [facility] CONTR[facility] Medical [place] CT TRAUMA HEAD WO 2022-04-04 19:10:01 Nolvia Husain [facility] CONTRAST Medical Branch CT TRAUMA CERVICAL SPINE 2022-04-04 19:10:01 Nolvia Husain [facility] CONTRAST Medical Branch CT TRAUMA THORACIC SPINE 2022-04-04 19:10:01 Nolvia Husain [facility] CONTRAST Medical Branch CT TRAUMA LUMBAR SPINE WO 2022-04-04 19:10:01 Nolvia Husain [facility] CONTRAST Medical Branch CT TRAUMA THORAX W 2022-04-04 19:08:26 Nolvia Husain [facility] CONTRAST Medical Branch CT TRAUMA ABDOMEN PELVIS 2022-04-04 19:08:26 Nolvia Husain [facility] [place] [facility] CONTRAST Medical Branch CT TRAUMA THORAX W 2022-04-04 19:08:26 Nolvia Husain [facility] CONTRAST Medical Branch CT TRAUMA ABDOMEN PELVIS 2022-04-04 19:08:26 Nolvia Husain Uni [facility] CONTRAST Medical Branch ABORH CONFIRMATION (LAB 2022-04-04 19:02:00 Nolvia Husain [facility] ONLY) Medical Branch ABORH CONFIRMATION (LAB 2022-04-04 19:02:00 Nolvia Husain [facility] ONLY) Medical Branch LIPASE 2022-04-04 18:35:00 Nolvia Husain [facility] TEST, SERUM 2022-04-04 18:35:00 Nolvia Husain [facility] COMP. METABOLIC PANEL 2022-04-04 18:35:00 Nolvia Husain [facility] ([id number]) Medical Branch COMP. METABOLIC PANEL 2022-04-04 18:35:00 Nolvia Husain [facility] ([id number]) Medical Branch LIPASE 2022-04-04 18:35:00 Nolvia Husain [facility] TEST, SERUM 2022-04-04 18:35:00 Nolvia Husain [facility] CBC WITH DIFF 2022-04-04 18:20:00 Nolvia Husain [facility] CBC WITH DIFF 2022-04-04 18:20:00 Novlia Husain [facility] EMERGENCY SERVICES 2022-04-04 05:01:00 Doctor Unassigned, [facility] AGREEMENTS AND [place] [facility] AUTHORIZATIONS EMERGENCY DEPARTMENT 2022-04-04 05:01:00 Doctor Unassigned, [facility] DOCUMENTS [place] [facility] EMERGENCY SERVICES 2022-04-04 05:01:00 Doctor Unassigned, [facility] AGREEMENTS AND [place] [facility] AUTHORIZATIONS EMERGENCY DEPARTMENT 2022-04-04 05:01:00 Doctor Unassigned, [facility] DOCUMENTS [place] [facility] POCT TEST 2022-04-01 04:37:00 Deonna Melendrez [facility] Branch POCT TEST 2022-04-01 04:37:00 Deonna Melendrez [facility] Medical [place] LIPASE 2022-04-01 04:36:00 Deonna Melendrez [facility] COMP. METABOLIC PANEL 2022-04-01 04:36:00 Deonna Melendrez [facility] ([id number]) Medical Branch CBC WITH DIFF 2022-04-01 04:36:00 Deonna Melendrez [facility] URINALYSIS 2022-04-01 04:36:00 Deonna Melendrez [facility] CBC WITH DIFF 2022-04-01 04:36:00 Deonna Melendrez [facility] COMP. METABOLIC PANEL 2022-04-01 04:36:00 Deonna Melendrez [facility] ([id number]) Medical [place] URINALYSIS 2022-04-01 04:36:00 Deonna Melendrez [facility] LIPASE 2022-04-01 04:36:00 Deonna Melendrez [facility] NOTICE OF PRIVACY 2022-04-01 03:37:12 Doctor Unassigned, [facility] PRACTICES [place] [facility] [place] NOTICE OF PRIVACY 2022-04-01 03:37:12 Doctor Unassigned, [facility] PRACTICES [place] [facility] [place] CONSENT/REFUSAL FOR 2022-04-01 03:36:55 Doctor Fidel [facility] DIAGNOSIS AND TREATMENT [place] [facility] [place] CONSENT/REFUSAL FOR 2022-04-01 03:36:55 Doctor Unasamara, [facility] 2022-03-31 05:01:00 Doctor Fidel [facility] AGREEMENTS AND [place] [facility] AUTHORIZATIONS SARS-COV-2 COVID-19 2022-03-17 16:49:14 Doctor Fidel [facility] MIKE-SUCROSE VACCINE 12 [place] [facility] YRS+, BIVALENT 0.3ML, IM, (PFIZER ARITA TOP BOOSTER) SARS-COV-2 COVID-19 2022-03-17 16:49:14 [facility] MIKE-SUCROSE VACCINE 12 [place] [facility] YRS+, BIVALENT 0.3ML, IM, (PFIZER ARITA TOP BOOSTER) XR PELVIS 3+ VW 2022-02-24 18:13:00 Bouchra Mcintosh [facility] EXTERNAL PROVIDER RECORDS 2022-02-22 05:01:00 Doctor Parra [facility] [place] [facility] [place] EMERGENCY SERVICES 2022-01-23 05:01:00 Doctor Fidel [facility] AGREEMENTS AND [place] [facility] AUTHORIZATIONS EMERGENCY DEPARTMENT 2022-01-23 05:01:00 Doctor Unassigned, [facility] DOCUMENTS [place] [facility] Encounters Start End Encounter Admission Attending Care Care Encounter Source Date/Time Date/Time Type Type Clinicians Facility Department ID 2021-11-02 Outpatient [facility] [id number] [place] 11:00:33 [id number] [facility] 2021-07-09 Inpatient [facility] [id number] [facility] 12:46:00 14 2021-05-25 Inpatient [facility] [id number] [facility] 23:19:00 94 2021-04-30 Emergency [facility] [id number] Univers 23:08:18 ity of [facility] 2022-07-25 2022-07-25 Outpatient R REYNALDO [facility] [id number] Univers 08:45:00 10:27:30 JAMES ity o f [facility] 2022-07-25 2022-07-25 Travel 1.2.840.1 1.2.377.183 [id number] Univers 00:00:00 00:00:00 06201.1.1 350.1.13.10 ity of 3.104.2.7 [place].698 [place] .3.0838[place] 084.8 Medica l .8 [place] 2022-07-15 2022-07-15 Emergency EM Ramirez [facility] EO3 [id number] [facility] 19:20:00 21:08:00 [facility] [place] 2022-07-04 2022-07-04 Emergency EM Eric Moore HCAPM GAYLA LA00 [id number] [facility] 16:22:00 17:00:00 83 [facility] 2022-06-16 2022-06-16 [facility] Arnaldo 1.2.840.9 [id number] Univers 10:58:02 23:59:00 Encounter Bouchra 24182.1.1 it y of 3.104.2.7 [place] .3.741498 Medica l .8 Branch 2022-06-16 2022-06-16 [facility] [id number] Univers 10:20:00 11:48:13 BOUCHRA ity of [facility] 2022-06-16 2022-06-16 Office Arnaldo, 1.2.840.3 [id number] [facility] 10:20:00 11:48:13 Visit Bouchra 59552.1.1 ity of 3.104.2.7 [place] .3.239281 Medica l .8 [place] 2022-06-16 2022-06-16 Travel 1.2.840.1 1.2.021.146 [id number] Univers 00:00:00 00:00:00 95669.1.1 350.1.13.10 ity of 3.104.2.7 [place].698 [place] .3.480851 084.8 Medica l .8 [place] 2022-06-13 2022-06-13 Outpatient R REYNALDO [facility] [id number] Univers 11:00:00 11:34:17 JAMES bernaly o f [facility] 2022-06-13 2022-06-13 Travel 1.2.840.1 1.2.739.661 [id number] Univers 00:00:00 00:00:00 27387.1.1 350.1.13.10 ity of 3.104.2.7 [place].698 [place]3.445319 084.8 Medica l .8 [place] 2022-05-31 2022-06-01 Emergency [facility] [id number] Univers 22:37:00 00:11:00 DEONNA ity of [facility] 2022-05-31 2022-06-01 Emergency Parvin, 1.2.840.8 [id number] Univers 22:37:00 00:11:00 Deonna Lopez 21599.1.1 ity of 3.104.2.7 [place] .3.875138 Medica l .8 [place] 2022-05-31 2022-05-31 Travel 1.2.840.1 1.2.579.012 [id number] Univers 00:00:00 00:00:00 75819.1.1 350.1.13.10 ity of 3.104.2.7 [place].698 [place]3.056021 084.8 Medica l .8 [place] 2022-05-23 2022-05-23 Outpatient R SELF, [facility] [id number] Univers 10:15:00 10:15:00 JAMES erickson o f [facility] 2022-05-19 2022-05-19 [facility], 1.2.840.9 [id number] [facility] 10:33:33 23:59:00 Encounter Bouchra 17873.1.1 it y of 3.104.2.7 [place] .3.248586 Medica l .8 [place] 2022-05-19 2022-05-19 [facility], 1.2.840.6 [id number] [facility] 12:50:00 12:50:00 Visit Bouchra 81552.1.1 ity of 3.104.2.7 [place] .3.832099 Medica l .8 [place] 2022-05-19 2022-05-19 Outpatient R [facility] [id number] [facility] 12:50:00 12:42:46 BOUCHRA ity of [facility] 2022-05-19 2022-05-19 Travel 1.2.840.1 1.2.354.355 [id number] [facility] 00:00:00 00:00:00 55380.1.1 350.1.13.10 ity of 3.104.2.[place].698 [place]3.871878 084.8 Medica l .8 [place] 2022-05-02 2022-05-02 Outpatient R [facility] [id number] Univers 08:45:00 09:32:43 JAMES erickson o f [facility] 2022-05-02 2022-05-02 Travel 1.2.840.1 1.2.727.534 [id number] Univers 00:00:00 00:00:00 57754.1.1 350.1.13.10 ity of 3.104.2.[place].698 [place] .3.480750 084.8 Medica l .8 [place] 2022-04-21 2022-04-21 Outpatient R ARNALDO [facility] [id number] Univers 15:08:38 23:59:00 BOUCHRA ity of [facility] 2022-04-21 2022-04-21 [facility], 1.2.840.7 [id number] Univers 15:08:38 23:59:00 Encounter Bouchra 48285.1.1 it y of 3.104.2.7 [place] .3.010665 Medica l .8 [place] 2022-04-21 2022-04-21 Office [facility], 1.2.840.3 [id number] Univers 15:20:00 16:19:45 Visit Bouchra 16470.1.1 ity of 3.104.2.7 [place] .3.638808 Medica l .8 [place] 2022-04-21 2022-04-21 Travel 1.2.840.1 1.2.654.947 [id number] Univers 00:00:00 00:00:00 80192.1.1 350.1.13.10 ity of 3.104.2.7 [place].698 [place] .3.818225 084.8 Medica l .8 [place] 2022-04-10 2022-04-10 Emergency X ROBLEDO, [facility] ERT [id number] Univers 17:11:00 22:14:00 IRASEMA ity of [facility] 2022-04-10 2022-04-10 Emergency Robledo, 1.2.840.3 [id number] Univers 17:11:00 22:14:00 Irasema 89242.1.1 ity of 3.104.2.7 [place] .3.602538 Medica l .8 [place] 2022-04-10 2022-04-10 Urgent MariShivani 1.2.840.1 [id number] Univers 16:40:00 18:22:07 [facility] 14361.1.1 ity of 3.104.2.7 [place] .3.111120 Medica l .8 [place] 2022-04-10 2022-04-10 Outpatient R MARI, [facility] [id number] Univers 16:40:00 16:40:00 SHIVANI erickson o f [facility] 2022-04-10 2022-04-10 Travel 1.2.840.1 1.2.373.855 [id number] Univers 00:00:00 00:00:00 65210.1.1 350.1.13.10 ity of 3.104.2.[place].698 [place] .3.888643 084.8 Medica l .8 [place] 2022-04-08 2022-04-08 Transition Moise, 1.2.840.1 [id number] Univers 00:00:00 00:00:00 of Care Negrita 02440.1.1 i ty of 3.104.2.7 [place] .3.985947 Medica l .8 [place] 2022-04-04 2022-04-07 Hospital Person, 1.2.840.4 [id number] Univers 17:33:00 17:00:00 Encounter Keagan 85798.1.1 it y of 3.104.2.7 [place] .3.555204 Medica l .8 [place] 2022-04-06 2022-04-06 [facility], 1.2.840.6 [id number] Univers 00:00:00 00:00:00 Management Care 51538.1.1 i ty of Transition 3.104.2.7 Harley as .3.109883 Medica l .8 [place] 2022-04-04 2022-04-04 Emergency [facility] ERT [id number] Univers 12:41:00 16:56:00 NOLVIA erickson [facility] [place] [facility] 2022-04-04 2022-04-04 Emergency [facility] ERT [id number] Univers 12:41:00 16:56:00 NOLVIA erickson [facility] [place] [facility] 2022-04-04 2022-04-04 Emergency Rodrigue, 1.2.840.5 [id number] Univers 12:41:00 16:56:00 Nolvia 08205.1.1 ity of 3.104.2.7 [place] .3.491049 Medica l .8 Branch 2022-04-04 2022-04-04 Travel 1.2.840.1 1.2.761.403 [id number] Univers 00:00:00 00:00:00 15265.1.1 350.1.13.10 ity of 3.104.2.7 [place].698 [place] .3.489739 084.8 Medica l .8 [place] 2022-03-31 2022-04-01 Emergency X PARVIN, [facility] [id number] Univers 22:46:00 01:29:00 DEONNA ity of [facility] 2022-03-31 2022-04-01 Emergency Melendrez, 1.2.840.3 [id number] Univers 22:46:00 01:29:00 Deonna Lopez 98609.1.1 ity of 3.104.2.7 [place] .3.356883 Medica l .8 [place] 2022-03-31 2022-03-31 Orders Doctor 1.2.840.6 [id number] Univers 00:00:00 00:00:00 Only Unassigned, 30419.1.1 ity of [place] 3.104.2.7 [place] .3.457597 Medica l .8 [place] 2022-03-31 2022-03-31 Travel 1.2.840.1 1.2.669.062 [id number] Univers 00:00:00 00:00:00 01870.1.1 350.1.13.10 ity of 3.104.2.7 [place]7.3.698 [place] .3.208703 084.8 Medica l .8 [place] 2022-03-28 2022-03-28 Outpatient R REYNALDO [facility] [id number] Univers 10:15:00 12:05:24 JAMES bernaly o f [facility] 2022-03-28 2022-03-28 Travel 1.2.840.1 1.2.253.068 [id number] Univers 00:00:00 00:00:00 81794.1.1 350.1.13.10 ity of 3.104.2.7 [place]7.3.698 [place] .3.566950 084.8 Medica l .8 [place] 2022-03-17 2022-03-17 Imm/Inj Vignesh Mack P 1.2.840.1 [id number] Univers 11:30:00 12:25:54 Visit Ana Luisa Obion 17150.1.1 ity of 3.104.2.7 [place] .3.515814 Medica l .8 [place] 2022-03-17 2022-03-17 [facility] [id number] Univers 10:30:00 11:13:04 MEDARDOYTHKeaton ity [facility] [place] [facility] 2022-03-17 2022-03-17 Travel 1.2.840.1 1.2.329.304 [id number] Univers 00:00:00 00:00:00 94203.1.1 350.1.13.10 ity of 3.104.2.7 [place]7.3.698 [place] .3.059669 084.8 Medica l .8 [place] 2022-02-24 2022-02-24 [facility], 1.2.840.5 [id number] Univers 13:02:19 23:59:00 Encounter Bouchra 66225.1.1 it y of 3.104.2.7 [place] .3.324530 Medica l .8 [place] 2022-02-24 2022-02-24 [facility] 1.2.840.2 [id number] Univers 13:02:19 23:59:00 Encounter Bouchra 54964.1.1 it y of 3.104.2.7 [place] .3.722860 Medica l .8 [place] 2022-02-24 2022-02-24 [facility] [id number] Univers 13:00:00 14:33:28 BOUCHRA ity [facility] [place] [facility] 2022-02-24 2022-02-24 [facility], 1.2.840.6 [id number] Univers 13:00:00 14:33:28 Visit Bouchra 92924.1.1 ity of 3.104.2.7 [place] .3.803029 Medica l .8 [place] 2022-02-24 2022-02-24 [facility] [id number] Univers 13:00:00 13:00:00 BOUCHRA ity of [facility] 2022-02-24 2022-02-24 Travel 1.2.840.1 1.2.749.603 [id number] [id number] Univers 00:00:00 00:00:00 75145.1.1 350.1.13.10 ity of 3.104.2.7 [place].3.698 [place] .3.519135 084.8 Medica l .8 [place] 2022-02-22 2022-02-22 Orders Doctor 1.2.840.1 [id number] Univers 00:00:00 00:00:00 Only Unassigned, 69791.1.1 ity of [place] 3.104.2.7 [place] .3.483842 Medica l .8 [place] 2022-02-22 2022-02-22 Orders Doctor 1.2.840.1 [id number] Univers 00:00:00 00:00:00 Only Unassigned, 93964.1.1 ity of [place] 3.104.2.7 [place] .3.761457 Medica l .8 [place] 2022-02-21 2022-02-21 [facility] [id number] Univers 08:00:00 08:48:33 JAMES ity o f [facility] 2022-02-21 2022-02-21 Travel 1.2.840.1 1.2.333.214 [id number] Univers 00:00:00 00:00:00 74341.1.1 350.1.13.10 ity of 3.104.2.7 [place]7.3.698 [place] .3.007691 084.8 Medica l .8 [place] 2022-02-21 2022-02-21 Travel 1.2.840.1 1.2.980.710 [id number] Univers 00:00:00 00:00:00 19713.1.1 350.1.13.10 ity of 3.104.2.7 [place]7.3.698 [place] .3.501583 084.8 Medica l .8 Branch 2022-01-23 2022-01-23 Emergency X CHECO, K [facility] ERT [id number] Univers 19:42:00 21:04:00 ity of [facility] 2022-01-23 2022-01-23 Emergency [place], K 1.2.840.4 [id number] Univers 19:42:00 21:04:00 Bree 94280.1.1 ity of 3.104.2.7 [place] .3.173725 Medica l .8 Branch 2022-01-23 2022-01-23 Emergency [place], K 1.2.840.2 [id number] Univers 19:42:00 21:04:00 Bree 65433.1.1 ity of 3.104.2.7 [place] .3.828705 Medica l .8 Branch 2022-01-23 2022-01-23 Travel 1.2.840.1 1.2.755.419 [id number] Univers 00:00:00 00:00:00 56372.1.1 350.1.13.10 ity of 3.104.2.7 4.[place].7.3.698 [place] .3.165365 084.8 Medica l .8 Branch 2022-01-23 2022-01-23 Travel 1.2.840.1 1.2.088.698 [id number] Univers 00:00:00 00:00:00 81428.1.1 350.1.13.10 ity of 3.104.2.7 4.[place]7.3.698 [place] .3.484703 084.8 Medica l .8 Branch 2022-01-17 2022-01-17 Outpatient R SELF, [facility] [id number] Univers 10:15:00 11:23:04 JAMES bernaly o f [facility] 2022-01-17 2022-01-17 Outpatient R SELF, [facility] [id number] Univers 10:15:00 11:23:04 JAMES bernaly o f [facility] 2022-01-17 2022-01-17 Travel 1.2.840.1 1.2.266.425 [id number] [facility] 00:00:00 00:00:00 85976.1.1 350.1.13.10 ity of 3.104.2.7 4.2.7.3.698 [place] .3.605163 084.8 Medica l .8 [place] 2022-01-17 2022-01-17 Travel 1.2.840.1 1.2.384.454 [id number] [id number] [facility] 00:00:00 00:00:00 22041.1.1 350.1.13.10 ity of 3.104.2.7 4.2.7.3.698 [place] .3.312335 084.8 Medica l .8 [place] 2021-12-31 2021-12-31 Outpatient R ASH RAMIREZ [facility] [id number] Univers 16:00:00 17:22:54 ity of [facility] 2021-12-31 2021-12-31 Office Fish, Ash 1.2.840.8 [id number] Univers 16:00:00 17:22:54 Visit Taur[place]rysta Maggie L 91102.1.1 ity of 3.104.2.7 [place] .3.723153 Medica l .8 [place] 2021-12-31 2021-12-31 Office Fish, Ash 1.2.840.0 [id number] Univers 16:00:00 17:22:54 Visit Martina Brooksian L 27653.1.1 ity of 3.104.2.7 [place] .3.470073 Medica l .8 [place] 2021-12-31 2021-12-31 Outpatient R ASH RAMIREZ [facility] [id number] Univers 16:00:00 16:00:00 ity of [facility] 2021-12-31 2021-12-31 Travel 1.2.840.1 1.2.353.114 [id number] [facility] 00:00:00 00:00:00 99331.1.1 350.1.13.10 ity of 3.104.2.7 4.2.7.3.698 [place] .3.220155 084.8 Medica l .8 [place] 2021-12-31 2021-12-31 Travel 1.2.840.1 1.2.023.[id number] [facility] 00:00:00 00:00:00 54610.1.1 350.1.13.10 ity of 3.104.2.7 4.2.7.3.698 [place] .3.318215 084.8 Medica l .8 [place] 2021-12-20 2021-12-20 Outpatient R REYNALDO, [facility] [id number] Univers 10:30:00 11:58:18 JAMES ity o f [facility] 2021-12-20 2021-12-20 Travel 1.2.840.1 1.2.732.200 5663 9777 [facility] 00:00:00 00:00:00 68534.1.1 350.1.13.10 ity of 3.104.2.7 [place].3.698 [place]3.6967[place] 084.8 [facility] .[facility] [place] 2021-12-20 2021-12-20 Travel 1.2.840.1 1.2.210.498 7692 9777 Univers 00:00:00 00:00:00 42987.1.1 350.1.13.10 ity of 3.104.2.7 [place].3.698 [place] .3.802255 084.8 [place] .8 [place] 2021-12-20 2021-12-20 Travel 1.2.840.1 1.2.099.909 0496 9777 Univers 00:00:00 00:00:00 92980.1.1 350.1.13.10 ity of 3.104.2.7 [place].3.698 [place]3.161352 084.8 Med[place] l .8 [place] 2021-12-13 2021-12-13 [facility] [id number] Univers 08:00:00 08:00:00 HANDY ity of [facility] 2021-12-06 2021-12-06 Urgent Shivani Guerra 1.2.840.1 [id number] [id number] Univers 12:00:00 12:16:45 Akiko Gonzalez 29186.1.1 ity of 3.104.2.7 [place] .3.642330 Medica l .8 [place] 2021-12-06 2021-12-06 Urgent Shivani Guerra 1.2.840.1 62011 [id number] Univers 12:00:00 12:16:45 Akiko Gonzalez 62928.1.1 ity of 3.104.2.7 [place] .3.733896 Medica l .8 [place] 2021-12-06 2021-12-06 [facility] [id number] Univers 12:00:00 12:16:45 AKIKO ity [facility] [place] [facility] 2021-12-06 2021-12-06 Urgent Shivani Guerra 1.2.840.1 80578 [id number] Univers 12:00:00 12:16:45 Akiko Gonzalez 90403.1.1 ity of 3.104.2.7 [place] .3.540512 Medica l .8 [place] 2021-12-06 2021-12-06 Travel 1.2.840.1 1.2.860.065 1436 2730 Univers 00:00:00 00:00:00 55219.1.1 350.1.13.10 ity of 3.104.2.7 [place]7.3.698 [place]3.642650 084.8 Med[place] l .8 [place] 2021-12-06 2021-12-06 Travel 1.2.840.1 1.2.634.595 9708 2730 Univers 00:00:00 00:00:00 83031.1.1 350.1.13.10 ity of 3.104.2.7 [place]7.3.698 [place]3.233487 084.8 Med[place] l .8 [place] 2021-12-06 2021-12-06 Travel 1.2.840.1 1.2.578.305 3770 2730 Univers 00:00:00 00:00:00 98281.1.1 350.1.13.10 ity of 3.104.2.7 4.[place].7.3.698 [place] .3.242010 084.8 Med[place] l .8 [place] 2021-11-26 2021-11-26 Office FishAsh 1.2.840.2 [id number] [facility] 15:00:00 15:40:48 Visit 43310.1.1 ity of 3.104.2.7 [place] .3.684204 Medica l .8 [place] 2021-11-26 2021-11-26 Outpatient R FISHANTONION [facility] [id number] Univers 15:00:00 15:40:48 ity of [facility] 2021-11-26 2021-11-26 Office FishAsh 1.2.840.4 [id number] [facility] 15:00:00 15:40:48 Visit 05481.1.1 ity of 3.104.2.7 [place] .3.998461 Medica l .8 [place] 2021-11-26 2021-11-26 Outpatient R FISHANTONION [facility] 606 [id number] Univers 15:00:00 15:00:00 ity of [facility] 2021-11-26 2021-11-26 Travel 1.2.840.1 1.2.286.257 3299 4215 [facility] 00:00:00 00:00:00 42734.1.1 350.1.13.10 ity of 3.104.2.7 4.[place]7.3.698 [place]3.474943 084.8 Med[place] l .8 [place] 2021-11-26 2021-11-26 Travel 1.2.840.1 1.2.410.537 4901 4215 Univers 00:00:00 00:00:00 69720.1.1 350.1.13.10 ity of 3.104.2.7 4.[place]7.3.698 [place]3.245710 084.8 Med[place] l .8 [place] 2021-11-23 2021-11-23 Outpatient R ASH RAMIREZ [facility] [id number] Univers 14:00:00 14:00:00 ity of [facility] 2021-11-19 2021-11-19 [facility], 1.2.840.2 [id number] [id number] Univers 17:58:13 23:59:00 Encounter Rania 90326.1.1 it y of 3.104.2.7 [place] .3.463239 Medica l .8 [place] 2021-11-19 2021-11-19 Outpatient R LOGAN [facility] [id number] Univers 17:58:13 23:59:00 RANIA ity of [facility] 2021-11-19 2021-11-19 [facility] 1.2.166.006 1674 4616 Univers 17:58:13 23:59:00 Encounter Vania [facility] 350.1.13.10 [facility] 4.2.7.2.686 Harley as OLIVIA[phone] [facility] [address] [place] MED[facility] OFF[facility] 2021-11-19 2021-11-19 [facility], 1.2.840.1 [id number] 936 [id number] Univers 17:58:13 23:59:00 Encounter Rania 72417.1.1 it y of 3.104.2.7 [place] .3.623543 Medica l .8 [place] 2021-11-19 2021-11-19 [facility], 1.2.840.5 [id number] 6569 Univers 17:20:00 18:04:46 Care Rania 08338.1.1 ity of 3.104.2.7 [place] .3.013793 Medica l .8 [place] 2021-11-19 2021-11-19 Urgent Ebrahim, [facility] 1.2.840.114 32455 569 Univers 17:20:00 18:04:46 Care Vania [facility] 350.1.13.10 it y of [place] 4.2.7.2.686 Harley as OLIVIA?BLEA [phone] Me aidee [address] MEDICAL OFFICE BUILDING 2021-11-19 2021-11-19 Urgent Ebrahim, 1.2.840.1 [id number] [id number] Univers 17:20:00 18:04:46 Care Vania 64306.1.1 ity of 3.104.2.7 [place] .3.003264 Medica l .8 [place] 2021-11-19 2021-11-19 Travel 1.2.840.1 1.2.469.541 4845 4086 Univers 00:00:00 00:00:00 67310.1.1 350.1.13.10 ity of 3.104.2.7 4.2.7.3.698 [place] .3.602804 084.8 Medica l .8 [place] 2021-11-19 2021-11-19 Travel 1.2.840.1 1.2.983.295 5729 4086 Univers 00:00:00 00:00:00 99434.1.1 350.1.13.10 ity of 3.104.2.7 4.2.7.3.698 [place]3.322616 084.8 Medica l .8 [place] 2021-11-17 2021-11-17 Outpatient R LUCINDA WILLS [facility] [id number] Univers 14:45:00 14:45:00 ity of [facility] 2021-11-17 2021-11-17 Outpatient R LUCINDA WILLS [facility] [id number] Univers 14:45:00 14:45:00 ity of [facility] 2021-11-16 2021-11-16 Lucinda Goodman 1.2.840.1 [id number] Univers 00:00:00 00:00:00 Cam 69823.1.1 ity of 3.104.2.7 [place] .3.715432 Medica l .8 [place] 2021-11-16 2021-11-16 Telephone Lucinda Wills 1.2.840.6 [id number] Univers 00:00:00 00:00:00 Cam 27576.1.1 ity of 3.104.2.7 [place] .3.136691 Medica l .8 [place] 2021-11-16 2021-11-16 Telephone Lucinda Wills 1.2.840.2 [id number] Univers 00:00:00 00:00:00 Cam 76382.1.1 ity of 3.104.2.7 [place] .3.664697 Medica l .8 [place] 2021-11-08 2021-11-08 Outpatient R REYNALDO, [facility] [id number] Univers 11:15:00 11:40:32 JAMES braxton f [facility] 2021-11-08 2021-11-08 Travel 1.2.840.1 1.2.288.733 0610 9142 Univers 00:00:00 00:00:00 83607.1.1 350.1.13.10 ity of 3.104.2.7 4.2.7.3.698 [place] .3.141781 084.8 Medica l .8 [place] 2021-11-08 2021-11-08 Travel 1.2.840.1 1.2.208.195 7787 9142 Univers 00:00:00 00:00:00 58978.1.1 350.1.13.10 ity of 3.104.2.7 4.2.7.3.698 [place] .3.881088 084.8 Medica l .8 [place] 2021-11-08 2021-11-08 Travel 1.2.840.1 1.2.255.552 0150 9142 Univers 00:00:00 00:00:00 21710.1.1 350.1.13.10 ity of 3.104.2.7 4.2.7.3.698 [place] .3.249201 084.8 Medica l .8 [place] 2021-10-29 2021-10-29 Office Lucinda Wills 1.2.840.0 [id number] [id number] Univers 13:00:00 13:28:21 Visit Cam 02071.1.1 ity of 3.104.2.7 [place] .3.723404 Medica l .8 [place] 2021-10-29 2021-10-29 Office Lucinda Wills 1.2.840.2 [id number] 930 09825 Univers 13:00:00 13:28:21 Visit Cam 33324.1.1 ity of 3.104.2.7 [place] .3.021590 Medica l .8 [place] 2021-10-29 2021-10-29 Outpatient R WILLSLUCINDA [facility] [id number] Univers 13:00:00 13:28:21 ity of [facility] 2021-10-29 2021-10-29 Office Lucinda Wills 1.2.840.6 [id number] [id number] Univers 13:00:00 13:28:21 Visit Cam 47043.1.1 ity of 3.104.2.7 [place] .3.096102 Medica l .8 [place] 2021-10-29 2021-10-29 Outpatient R LUCINDA WILLS [facility] [id number] Univers 13:00:00 13:00:00 ity of [facility] 2021-10-29 2021-10-29 Outpatient R LUCINDA WILLS [facility] [id number] [id number] Univers 13:00:00 13:00:00 ity of [facility] 2021-10-29 2021-10-29 Travel 1.2.840.1 1.2.007.965 4292 6547 Univers 00:00:00 00:00:00 09986.1.1 350.1.13.10 ity of 3.104.2.7 4.2.7.3.698 [place] .3.496249 084.8 Medica l .8 [place] 2021-10-29 2021-10-29 Travel 1.2.840.1 1.2.245.703 4029 6547 Univers 00:00:00 00:00:00 80562.1.1 350.1.13.10 ity of 3.104.2.7 4.2.7.3.698 [place] .3.508199 084.8 Medica l .8 [place] 2021-10-29 2021-10-29 Travel 1.2.840.1 1.2.251.775 0304 6547 Univers 00:00:00 00:00:00 62621.1.1 350.1.13.10 ity of 3.104.2.7 4.2.7.3.698 [place] .3.451088 084.8 Medica l .8 [place] 2021-10-27 2021-10-27 Out[facility] [id number] Univers 14:30:00 [facility]05:[facility]-10-27 2021-10-27 Outpatient [facility] [id number] Univers 14:30:00 14:30:00 SHIVANI VAUGHN [facility] 2021-10-27 2021-10-[address] Registrar Pat Patel 1.2.840.1 [id number] [facility] 12:30:00 12:45:00 Visit Pcp-Lab 61479.1.1 ity of 3.104.2.7 [place] .3.545978 Medica l .8 [place] 2021-10-27 2021-10-[address] Registrar Pat Patel 1.2.840.1 [id number] [facility] 12:30:00 12:45:00 Visit Pcp-Lab 25593.1.1 ity of 3.104.2.7 [place] .3.301595 Medica l .8 [place] 2021-10-27 2021-10-[address] Registrar Pat Patel 1.2.840.1 [id number] [facility] 12:30:00 12:45:00 Visit Pcp-Lab 06393.1.1 ity of 3.104.2.7 [place] .3.472267 Medica l .8 [place] 2021-10-27 2021-10-[address] Registrar Pat Patel 1.2.840.1 [id number] [facility] 12:30:00 12:45:00 Visit Pcp-Lab 85262.1.1 ity of 3.104.2.7 [place] .3.930852 Medica l .8 [place] 2021-10-27 2021-10-27 Travel 1.2.840.1 1.2.201.714 4014 7104 Univers 00:00:00 00:00:00 79718.1.1 350.1.13.10 ity of 3.104.2.7 4.2.7.3.698 [place] .3.004547 084.8 Medica l .8 [place] 2021-10-27 2021-10-27 Travel 1.2.840.1 1.2.486.445 4521 7104 Univers 00:00:00 00:00:00 76346.1.1 350.1.13.10 ity of 3.104.2.7 4.2.7.3.698 [place] .3.033503 084.8 Medica l .8 [place] 2021-10-27 2021-10-27 Travel 1.2.840.1 1.2.450.239 7959 7104 Univers 00:00:00 00:00:00 49494.1.1 350.1.13.10 ity of 3.104.2.7 4.2.7.3.698 [place] .3.687127 084.8 Medica l .8 [place] 2021-10-27 2021-10-27 Travel 1.2.840.1 1.2.949.580 9493 7104 Univers 00:00:00 00:00:00 94567.1.1 350.1.13.10 ity of 3.104.2.7 4.2.7.3.698 [place] .3.943290 084.8 Medica l .8 [place] 2021-10-06 2021-10-06 Outpatient R SHIVANI VAUGHN [facility] [id number] [facility] 15:15:00 16:31:02 SHIVANI VAUGHN ity [facility] [place] [facility] 2021-10-06 2021-10-06 Travel 1.2.840.1 1.2.223.505 2145 3199 Univers 00:00:00 00:00:00 56684.1.1 350.1.13.10 ity of 3.104.2.7 4.2.7.3.698 [place] .3.941565 084.8 Medica l .8 [place] 2021-10-06 2021-10-06 Travel 1.2.840.1 1.2.229.765 9351 3199 Univers 00:00:00 00:00:00 20082.1.1 350.1.13.10 ity of 3.104.2.7 4.2.7.3.698 [place] .3.784384 084.8 Medica l .8 [place] 2021-10-06 2021-10-06 Travel 1.2.840.1 1.2.900.618 7089 3199 Univers 00:00:00 00:00:00 38448.1.1 350.1.13.10 ity of 3.104.2.7 4.2.7.3.698 [place] .3.218933 084.8 Medica l .8 [place] 2021-09-13 2021-09-13 Outpatient R REYNALDO, [facility] [id number] Univers 11:00:00 11:00:00 JAMES erickson o f [facility] 2021-09-02 2021-09-02 Outpatient Escobar GALARZA [facility] [id number] Univers 13:00:00 13:00:00 HONORIO ity [facility] [place] [facility] 2021-09-02 2021-09-02 Outpatient R GEOVANNI, [facility] [id number] Univers 13:00:00 13:00:00 HONORIO ity [facility] [place] [facility] 2021-09-02 2021-09-02 Travel 1.2.840.1 1.2.959.461 6933 3611 Univers 00:00:00 00:00:00 96305.1.1 350.1.13.10 ity of 3.104.2.7 4.2.7.3.698 [place] .3.729716 084.8 Medica l .8 [place] 2021-09-02 2021-09-02 Travel 1.2.840.1 1.2.241.145 6400 3611 Univers 00:00:00 00:00:00 42480.1.1 350.1.13.10 ity of 3.104.2.7 4.2.7.3.698 [place] .3.161929 084.8 Medica l .8 [place] 2021-09-02 2021-09-02 Travel 1.2.840.1 1.2.385.517 3033 3611 Univers 00:00:00 00:00:00 46912.1.1 350.1.13.10 ity of 3.104.2.7 4.2.7.3.698 [place] .3.422798 084.8 Medica l .8 [place] 2021-08-26 2021-08-26 Outpatient [facility] 70653 [id number] Univers 12:59:32 23:59:00 BOUCHRA ity of [facility] 2021-08-26 2021-08-26 [facility], 1.2.840.5 [id number] Univers 12:59:32 23:59:00 Encounter Bouchra 50814.1.1 it y of 3.104.2.7 [place] .3.147096 Medica l .8 [place] 2021-08-26 2021-08-26 [facility], 1.2.840.6 [id number] Univers 12:59:32 23:59:00 Encounter Bouchra 95812.1.1 it y of 3.104.2.7 [place] .3.952086 Medica l .8 [place] 2021-08-26 2021-08-26 [facility], 1.2.840.1 [id number] Univers 12:59:32 23:59:00 Encounter Bouchra 89337.1.1 it y of 3.104.2.7 [place] .3.091523 Medica l .8 [place] 2021-08-26 2021-08-26 Outpatient [facility] [id number] [id number] Univers 13:00:00 13:47:55 BOUCHRA ity of [facility] 2021-08-26 2021-08-26 Office Arnaldo, 1.2.840.2 [id number] [id number] Univers 13:00:00 13:47:55 Visit Bouchra 89183.1.1 ity of 3.104.2.7 [place] .3.553473 Medica l .8 [place] 2021-08-26 2021-08-26 Outpatient R ARNALDO, [facility] [id number] Univers 13:00:00 13:47:55 BOUCHRA ity of [facility] 2021-08-26 2021-08-26 Office Arnaldo, 1.2.840.2 [id number] 908 [id number] Univers 13:00:00 13:47:55 Visit Bouchra 13627.1.1 ity of 3.104.2.7 [place] .3.039853 Medica l .8 [place] 2021-08-26 2021-08-26 Travel 1.2.840.1 1.2.368.[address] [place] [address] 00:00:00 00:00:00 29402.1.1 350.1.13.10 ity of 3.104.2.7 4.2.7.3.698 [place] .3.309182 084.8 Medica l .8 [place] 2021-08-26 2021-08-26 Travel 1.2.840.1 1.2.878.341 6959 7347 Univers 00:00:00 00:00:00 41054.1.1 350.1.13.10 ity of 3.104.2.7 4.2.7.3.698 [place] .3.162170 084.8 Medica l .8 [place] 2021-08-26 2021-08-26 Travel 1.2.840.1 1.2.593.359 0068 7347 [facility] 00:00:00 00:00:00 68836.1.1 350.1.13.10 ity of 3.104.2.7 4.2.7.3.698 [place] .3.008276 084.8 Medica l .8 [place] 2021-08-03 2021-08-[address] Registrar Sharita, [facility] Lab Main [facility] 1.2.8 40.114 [id number] Univers 17:15:00 17:30:00 Visit Roderick Shivani [place] 350.1.13.10 ity of [place] 4.2.7.2.686 [place] PROFESS[place] [id number] Sc dical NAL [address] [facility] 2021-08-03 2021-08-[address]istrar Shivani Vaughn 1.2.840.7 [id number] Univers 17:15:00 17:30:00 Visit [facility] Lab Main 23762.1.1 ity of 3.104.2.7 [place] .3.400929 Medica l .8 [place] 2021-08-03 2021-08-[address]istrar Shivani Vaughn 1.2.840.0 919 [id number] Univers 17:15:00 17:30:00 Visit [facility] Lab Main 30407.1.1 ity of 3.104.2.7 [place] .3.363998 Medica l .8 [place] 2021-08-03 2021-08-03 Outpatient R SHIVANI VAUGHN [facility] [id number] Univers 17:15:00 17:15:00 SHIVANI VAUGHN ity [facility] [place] [facility] 2021-08-02 2021-08-02 Outpatient R SELF, [facility] [id number] Univers 10:15:00 11:07:50 JAMES ity o f [facility] 2021-08-02 2021-08-02 Travel 1.2.840.1 1.2.279.779 7569 6890 Univers 00:00:00 00:00:00 99770.1.1 350.1.13.10 ity of 3.104.2.7 4.2.7.3.698 [place] .3.586113 084.8 Medica l .8 [place] 2021-08-02 2021-08-02 Travel 1.2.840.1 1.2.668.199 9754 6890 Univers 00:00:00 00:00:00 07217.1.1 350.1.13.10 ity of 3.104.2.7 4.2.7.3.698 [place] .3.947681 084.8 Medica l .8 [place] 2021-08-02 2021-08-02 Travel 1.2.840.1 1.2.223.311 4807 6890 Univers 00:00:00 00:00:00 69243.1.1 350.1.13.10 ity of 3.104.2.7 4.2.7.3.698 [place] .3.034900 084.8 Medica l .8 [place] 2021-07-29 2021-07-29 [facility] 93230 [id number] Univers 13:26:56 23:59:00 BOUCHRA ity [facility] [place] [facility] 2021-07-29 2021-07-29 [facility], 1.2.840.3 [id number] Univers 13:26:56 23:59:00 Encounter Bouchra 94199.1.1 it y of 3.104.2.7 [place] .3.511393 Medica l .8 [place] 2021-07-29 2021-07-29 [facility], 1.2.840.4 [id number] Univers 13:26:56 23:59:00 Encounter Bouchra 88490.1.1 it y of 3.104.2.7 [place] .3.607496 Medica l .8 [place] 2021-07-29 2021-07-29 [facility], 1.2.840.8 [id number] Univers 13:26:56 23:59:00 Encounter Bouchra 86445.1.1 it y of 3.104.2.7 [place] .3.509304 Medica l .8 [place] 2021-07-29 2021-07-29 Office Arnaldo [facility] 1.2.446.136 6447 4919 Univers 13:20:00 15:16:49 Visit Bouchra ARELLANO 350.1.13.10 it y of CARE 4.2.7.2.686 Michelle VALDES [phone] Sc dical [address] [place] 2021-07-29 2021-07-29 Outpatient R ARNALDO, [facility] [id number] [id number] Univers 13:20:00 15:16:49 BOUCHRA ity of [facility] 2021-07-29 2021-07-29 Office Arnaldo, 1.2.840.6 [id number] 906 06004 Univers 13:20:00 15:16:49 Visit Bouchra 68577.1.1 ity of 3.104.2.7 [place] .3.233485 Medica l .8 [place] 2021-07-29 2021-07-29 Office Arnaldo, 1.2.840.5 [id number] 906 65457 Univers 13:20:00 15:16:49 Visit Bouchra 34506.1.1 ity of 3.104.2.7 [place] .3.128607 Medica l .8 [place] 2021-07-29 2021-07-29 Letter Arnaldo, 1.2.840.6 [id number] 908 [id number] Univers 00:00:00 00:00:00 (Out) Bouchra 31387.1.1 ity of 3.104.2.7 [place] .3.208619 Medica l .8 [place] 2021-07-29 2021-07-29 Travel 1.2.840.1 1.2.578.384 3971 9351 Univers 00:00:00 00:00:00 64617.1.1 350.1.13.10 ity of 3.104.2.7 4.2.7.3.698 [place] .3.834817 084.8 Medica l .8 [place] 2021-07-29 2021-07-29 Letter Arnaldo, 1.2.840.3 [id number] 908 99684 Univers 00:00:00 00:00:00 (Out) Bouchra 80659.1.1 ity of 3.104.2.7 [place] .3.418118 Medica l .8 [place] 2021-07-29 2021-07-29 Travel 1.2.840.1 1.2.082.580 5574 9351 Univers 00:00:00 00:00:00 89069.1.1 350.1.13.10 ity of 3.104.2.7 4.2.7.3.698 [place] .3.974584 084.8 Medica l .8 [place] 2021-07-29 2021-07-29 Dustin Mcintsoh, 1.2.840.8 [id number] 908 [id number] Univers 00:00:00 00:00:00 (Out) Bouchra 48557.1.1 ity of 3.104.2.7 [place] .3.430784 Medica l .8 [place] 2021-07-29 2021-07-29 Travel 1.2.840.1 1.2.305.616 2464 9351 Univers 00:00:00 00:00:00 61185.1.1 350.1.13.10 ity of 3.104.2.7 4.2.7.3.698 [place] .3.495609 084.8 Medica l .8 [place] 2021-07-22 2021-07-22 [facility] 1.2.840.114 9 [id number] Univers 14:00:00 23:59:00 Encounter , Ryan COLMENARES 350.1.13.10 ity of [place] 4.2.7.2.686 [facility] [id number] [facility] [address] [place] 2021-07-22 2021-07-22 [facility] 1.2.840.8 [id number] Univers 14:00:00 23:59:00 Encounter , Ryan 59784.1.1 it y of 3.104.2.7 [place] .3.337296 Medica l .8 [place] 2021-07-22 2021-07-22 [facility] 1.2.840.5 [id number] Univers 14:00:00 23:59:00 Encounter , Ryan 23343.1.1 it y of 3.104.2.7 [place] .3.135463 Medica l .8 [place] 2021-07-22 2021-07-22 [facility] 1.2.840.6 [id number] Univers 14:00:00 23:59:00 Encounter , Ryan 70559.1.1 it y of 3.104.2.7 [place] .3.278996 Medica l .8 [place] 2021-07-22 2021-07-22 [facility] 1.2.840.114 [id number] Univers 10:46:11 13:59:00 Encounter , Ryan SPECIALTY 350.1.13.10 ity of CARE 4.2.7.2.686 [facility] AT [id number] Sc janesbill [place] 809 [facility] 2021-07-22 2021-07-22 [facility] 1.2.840.3 [id number] Univers 10:46:11 13:59:00 Encounter , Ryan 97042.1.1 it y of 3.104.2.7 [place] .3.599248 Medica l .8 [place] 2021-07-22 2021-07-22 [facility] 1.2.840.0 [id number] Univers 10:46:11 13:59:00 Encounter , Ryan 85581.1.1 it y of 3.104.2.7 [place] .3.804009 Medica l .8 [place] 2021-07-22 2021-07-22 [facility] 1.2.840.6 [id number] Univers 10:46:11 13:59:00 Encounter , Ryan 79826.1.1 it y of 3.104.2.7 [place] .3.519438 Medica l .8 [place] 2021-07-22 2021-07-22 Outpatient R GALARZA, [facility] [id number] Univers 13:00:00 13:45:02 HONORIO ity [facility] [place] [facility] 2021-07-22 2021-07-22 Outpatient R GALARZA, [facility] [id number] Univers 13:00:00 13:45:02 HONORIO ity [facility] [place] [facility] 2021-07-22 2021-07-22 Outpatient R GALARZA, [facility] [id number] Univers 13:00:00 13:00:00 HONORIO bernaly [facility] [place] [facility] 2021-07-22 2021-07-22 [facility] 1.2.840.0 [id number] Univers 10:15:00 11:55:28 Visit , Ryan 80404.1.1 ity of 3.104.2.7 [place] .3.934003 Medica l .8 [place] 2021-07-22 2021-07-22 Outpatient R ALIJANIPDENA [facility] [id number] Univers 10:15:00 11:55:28 , RYAN ity [facility] [place] [facility] 2021-07-22 2021-07-22 Office Alijanipour 1.2.840.2 [id number] Univers 10:15:00 11:55:28 Visit , Ryan 14186.1.1 ity of 3.104.2.7 [place] .3.778545 Medica l [address] [place] [address] 2021-07-22 2021-07-22 Office Alijanipour 1.2.840.4 [id number] Univers 10:15:00 11:55:28 Visit , Ryan 48565.1.1 ity of 3.104.2.7 [place] .3.862476 Medica l [address] [place] [address] 2021-07-22 2021-07-22 Outpatient R ALIJANDENA [facility] [id number] Univers 10:46:11 10:46:11 , RYAN ity [facility] [place] [facility] 2021-07-22 2021-07-22 [id number] Univers 10:15:00 10:15:00 , RYAN ity [facility] [place] [facility] 2021-07-22 2021-07-22 [id number] Univers 10:15:00 10:15:00 , RYAN ity [facility] [place] [facility] 2021-07-22 2021-07-22 Abstract Alijanipour 1.2.840.5 [id number] Univers 00:00:00 00:00:00 , Ryan 50047.1.1 ity of 3.104.2.7 [place] .3.520024 [facility] .[facility] [place] 2021-07-22 2021-07-22 Travel 1.2.840.1 1.2.311.661 [id number] Univers 00:00:00 00:00:00 28388.1.1 350.1.13.10 ity of 3.104.2.7 4.[place]7.3.698 [place] .3.438313 084.8 Medica [facility] .8 [place] 2021-07-22 2021-07-22 Letter Alijanipour 1.2.840.8 [id number] Univers 00:00:00 00:00:00 (Out) , Rayn 60202.1.1 ity of 3.104.2.7 [place] .3.307408 [facility] .[facility] [place] 2021-07-22 2021-07-22 Letter Alijanipour 1.2.840.6 [id number] Univers 00:00:00 00:00:00 (Out) , Ryan 37447.1.1 ity of 3.104.2.7 [place] .3.364874 Medica l .8 [facility] 2021-07-22 2021-07-22 Travel 1.2.840.1 1.2.822.949 [id number] Univers 00:00:00 00:00:00 67732.1.1 350.1.13.10 ity of 3.104.2.7 4.[place]7.3.698 [place] .3.849319 084.8 Medica l .8 [place] 2021-07-22 2021-07-22 Abstract Alijanipour 1.2.840.8 [id number] Univers 00:00:00 00:00:00 , Ryan 21029.1.1 ity of 3.104.2.7 [place] .3.183118 Medica l .8 [place] 2021-07-22 2021-07-22 Letter Alijanipour 1.2.840.2 [id number] Univers 00:00:00 00:00:00 (Out) , Ryan 46991.1.1 ity of 3.104.2.7 [place] .3.640065 Medica l .8 [facility] 2021-07-22 2021-07-22 Travel 1.2.840.1 1.2.872.373 [id number] Univers 00:00:00 00:00:00 08218.1.1 350.1.13.10 ity of 3.104.2.7 4.[place]7.3.698 [place] .3.279662 084.8 [facility] l .8 [place] 2021-07-22 2021-07-22 Abstract Alijanipour 1.2.840.8 [id number] Univers 00:00:00 00:00:00 , Ryan 97347.1.1 ity of 3.104.2.7 [place] .3.681462 Medica l .8 [place] 2021-07-22 2021-07-22 Letter Alijanipour 1.2.840.3 [id number] Univers 00:00:00 00:00:00 (Out) , Ryan 84135.1.1 ity of 3.104.2.7 [place] .3.692129 Medica l .8 [place] 2021-07-22 2021-07-22 Travel 1.2.840.1 1.2.477.582 [id number] Univers 00:00:00 00:00:00 92104.1.1 350.1.13.10 ity of 3.104.2.7 [place].3.698 [place] 084.8 [place] .8 [place] 2021-07-22 2021-07-22 Abstract Alijanipour 1.2.840.1 [id number] Univers 00:00:00 00:00:00 , Ryan 46197.1.1 ity of 3.104.2.7 [place] .3.787788 Medica l .8 [place] 2021-07-21 2021-07-21 Outpatient R SHIVANI VAUGHN [facility] [id number] Univers 14:30:00 15:30:35 SHIVANI VAUGHN [facility] 2021-07-21 2021-07-21 Outpatient SHIVANI HARDING [facility] [id number] Univers 14:30:00 15:30:35 SHIVANI VAUGHN [facility] [place] [facility] 2021-07-21 2021-07-21 Outpatient R RODERICKSHIVANI AVALOS [facility] [id number] Univers 14:30:00 14:30:00 RODERICKALTAFSHIVANI ity [facility] [place] [facility] 2021-07-15 2021-07-15 Orders Doctor 1.2.840.7 [id number] Univers 00:00:00 00:00:00 Only Unassigned, 07070.1.1 ity of [place] 3.104.2.7 [place] .3.005283 Medica [place] .8 [place] 2021-07-15 2021-07-15 Orders Doctor 1.2.840.0 [id number] Univers 00:00:00 00:00:00 Only Unassigned, 00889.1.1 ity of [place] 3.104.2.7 [place] .3.252892 Medica l .8 [place] 2021-07-15 2021-07-15 Orders Doctor 1.2.840.3 [id number] Univers 00:00:00 00:00:00 Only Unassigned, 38025.1.1 ity of [place] 3.104.2.7 [place] .3.835761 Medica l .8 [place] 2021-07-15 2021-07-15 Orders Doctor 1.2.840.1 [id number] Univers 00:00:00 00:00:00 Only Unassigned, 93080.1.1 ity of [place] 3.104.2.7 [place] .3.712716 Medica l .8 [place] 2021-07-09 2021-07-09 Emergency [facility] [id number] [facility] 12:46:00 12:46:00 14 2021-07-08 2021-07-08 Outpatient Escobar GALARZA [facility] [id number] Univers 13:00:00 13:00:00 HONORIO erickson [facility] [place] [facility] 2021-07-08 2021-07-08 Outpatient Escobar GALARZA [facility] [id number] Univers 13:00:00 13:00:00 HONORIO erickson [facility] [place] [facility] 2021-06-30 2021-06-30 Telephone Nazeer, 1.2.840.2 [id number] Univers 00:00:00 00:00:00 Jerry 91104.1.1 ity of 3.104.2.7 [place] .3.859887 Medica l .8 [place] 2021-06-30 2021-06-30 Telephone Nazeer, 1.2.840.3 [id number] 900 [id number] Univers 00:00:00 00:00:00 Jerry 72937.1.1 ity of 3.104.2.7 [place] .3.052700 Medica l .8 [place] 2021-06-30 2021-06-30 Telephone Nazeer, 1.2.840.6 [id number] 900 [id number] Univers 00:00:00 00:00:00 Jerry 53759.1.1 ity of 3.104.2.7 [place] .3.154773 Medica l .8 [place] 2021-06-30 2021-06-30 Telephone Nazeer, 1.2.840.1 [id number] Univers 00:00:00 00:00:00 Jerry 34775.1.1 ity of 3.104.2.7 [place] .3.501755 Medica l .8 [place] 2021-06-24 2021-06-24 Imm/Inj Nurse, Pcp Immunization [facility] 1. 2.840.114 [id number] Univers 16:30:00 16:40:00 Visit Gideon Montez PRIMARY 350.1.13. 10 ity of CARE 4.2.7.2.686 Michelle VALDES 124.7633651 Sc dical [address] [place] 2021-06-24 2021-06-24 Imm/Inj Gideon Montez 1.2.840.3 763 [id number] Univers 16:30:00 16:40:00 Visit Nurse, Pcp Immunization 82491.1.1 ity of 3.104.2.7 [place] .3.886152 Medica l .8 [place] 2021-06-24 2021-06-24 Imm/Inj Gideon Montez 1.2.840.2 050 [id number] Univers 16:30:00 16:40:00 Visit Nurse, Pcp Immunization 78228.1.1 ity of 3.104.2.7 [place] .3.935167 Medica l .8 [place] 2021-06-24 2021-06-24 Imm/Inj Gideon Montez 1.2.840.4 [id number] Univers 16:30:00 16:40:00 Visit Nurse, Pcp Immunization 16786.1.1 ity of 3.104.2.7 [place] .3.556326 Medica l .8 [place] 2021-06-24 2021-06-24 Imm/Inj Gideon Montez 1.2.840.6 960 [id number] Univers 16:30:00 16:40:00 Visit Nurse, Pcp Immunization 04404.1.1 ity of 3.104.2.7 [place] .3.342543 Medica l .8 [place] 2021-06-24 2021-06-24 Outpatient R CARLOS MANUEL [facility] [id number] Univers 16:30:00 16:30:00 GIDEON ity [facility] [place] [facility] 2021-06-24 2021-06-[address] Registrar Pcp-Lab [facility] 1.2.840.114 [id number] [id number] Univers 16:15:00 16:30:00 Visit Bethel Isaacs PRIMARY 350.1.13.10 ity of CARE 4.2.7.2.686 Harleybrendon FREEDKATARINA [id number] Sc dical [address] [place] 2021-06-24 2021-06-[address] Registrar Bethel Isaacs 1.2.840.2 [id number] [id number] Univers 16:15:00 16:30:00 Visit Pcp-Lab 73034.1.1 ity of 3.104.2.7 [place] .3.236465 Medica l .8 [place] 2021-06-24 2021-06-[address]istrar Bethel Isaacs 1.2.840.9 [id number] Univers 16:15:00 16:30:00 Visit Pcp-Lab 59948.1.1 ity of 3.104.2.7 [place] .3.513624 Medica l .8 [place] 2021-06-24 2021-06-[address]istrar Bethel Isaacs 1.2.840.7 050 [id number] Univers 16:15:00 16:30:00 Visit Pcp-Lab 86057.1.1 ity of 3.104.2.7 [place] .3.016841 Medica l .8 [place] 2021-06-24 2021-06-[address] Registrar Bethel Isaacs 1.2.840.7 021 [id number] Univers 16:15:00 16:30:00 Visit Pcp-Lab 91295.1.1 ity of 3.104.2.7 [place] .3.346399 Medica l [address] [place] [address] 2021-06-24 2021-06-24 Outpatient R FERNY [facility] [id number] Univers 16:15:00 16:15:00 BETHELDANIA erickson [facility] [place] [facility] 2021-06-24 2021-06-24 Outpatient R FERNY [facility] [id number] Univers 14:40:00 16:08:00 BETHEL ity [facility] [place] [facility] 2021-06-24 2021-06-24 Office Bethel Isaacs 1.2.840.1 [id number] Univers 14:40:00 16:08:00 Visit Health, Tg Hormone 54222.1.1 ity of 3.104.2.7 [place] .3.517284 Medica l [address] [place] [address] 2021-06-24 2021-06-24 [facility] [id number] Univers 14:40:00 16:08:00 BETHEL ity [facility] [place] [facility] 2021-06-24 2021-06-24 Office Bethel Isaacs 1.2.840.5 [id number] Univers 14:40:00 16:08:00 Visit Health, Tg Hormone 71140.1.1 ity of 3.104.2.7 [place] .3.035947 Medica l .8 [place] 2021-06-24 2021-06-24 Office Bethel Isaacs 1.2.840.7 [id number] Univers 14:40:00 16:08:00 Visit Health, Tg Hormone 95131.1.1 ity of 3.104.2.7 [place] .3.506086 Medica l .8 [place] 2021-06-24 2021-06-24 Office FernyRomein Armando 1.2.840.1 [id number] Univers 14:40:00 16:08:00 Visit Health, Tg Hormone 88557.1.1 ity of 3.104.2.7 [place] .3.205110 Medica l .8 [place] 2021-06-24 2021-06-24 Outpatient R FERNY, [facility] [id number] Univers 14:40:00 14:40:00 BETHEL ity of [facility] 2021-06-24 2021-06-24 Travel 1.2.840.1 1.2.664.246 0701 0448 Univers 00:00:00 00:00:00 01806.1.1 350.1.13.10 ity of 3.104.2.7 4.[place]7.3.698 [place]3.6428[place] 084.8 Medica l .8 [place] 2021-06-24 2021-06-24 Travel 1.2.840.1 1.2.472.231 5399 0448 Univers 00:00:00 00:00:00 99176.1.1 350.1.13.10 ity of 3.104.2.7 4.2.7.3.698 [place] .3.031770 084.8 Medica l .8 [place] 2021-06-24 2021-06-24 Travel 1.2.840.1 1.2.844.654 8495 0448 Univers 00:00:00 00:00:00 26889.1.1 350.1.13.10 ity of 3.104.2.7 4.2[place]7.3.698 [place] .3.744226 084.8 Medica l .8 [place] 2021-06-24 2021-06-24 Travel 1.2.840.1 1.2.954.979 2978 0448 Univers 00:00:00 00:00:00 66615.1.1 350.1.13.10 ity of 3.104.2.7 4.2.7.3.698 [place] .3.058377 084.8 Medica l .8 [place] 2021-06-17 2021-06-[address] Registrar Self, James 1.2.840.1 [id number] [id number] Univers 16:00:00 16:15:00 Visit Pcp-Lab 59297.1.1 ity of 3.104.2.7 [place] .3.857224 Medica l .8 [place] 2021-06-17 2021-06-[address] Registrar Self, James 1.2.840.4 [id number] [id number] Univers 16:00:00 16:15:00 Visit Pcp-Lab 79550.1.1 ity of 3.104.2.7 [place] .3.202464 Medica l .8 [place] 2021-06-17 2021-06-[address] Registrar Self, James 1.2.840.7 [id number] [id number] Univers 16:00:00 16:15:00 Visit Pcp-Lab 15001.1.1 ity of 3.104.2.7 [place] .3.315913 Medica l .8 [place] 2021-06-17 2021-06-[address] Registrar Self, James 1.2.840.4 [id number] [id number] Univers 16:00:00 16:15:00 Visit Pcp-Lab 39514.1.1 ity of 3.104.2.7 [place] .3.488076 Medica l .8 [place] 2021-06-17 2021-06-[address] Registrar Self, James 1.2.840.7 [id number] Univers 16:00:00 16:15:00 Visit Pcp-Lab 39787.1.1 ity of 3.104.2.7 [place] .3.947988 Medica l .8 [place] 2021-06-17 2021-06-17 Outpatient Escobar GALARZA, [facility] [id number] Univers 14:00:00 14:00:00 HONORIO ity of [facility] 2021-06-17 2021-06-17 Gerda GALARZA, [facility] [id number] Univers 14:00:00 14:00:00 HONORIO ity of [facility] 2021-06-17 2021-06-17 Travel 1.2.840.1 1.2.878.586 0031 3149 [facility] 00:00:00 00:00:00 78707.1.1 350.1.13.10 ity of 3.104.2.7 4.2.7.3.698 [place] .3.763713 084.8 Medica l .8 [place] 2021-06-17 2021-06-17 Travel 1.2.840.1 1.2.628.409 9533 3149 Univers 00:00:00 00:00:00 73319.1.1 350.1.13.10 ity of 3.104.2.7 4.2.7.3.698 [place] .3.269514 084.8 Medica l .8 [place] 2021-06-17 2021-06-17 Travel 1.2.840.1 1.2.654.779 6395 3149 Univers 00:00:00 00:00:00 38696.1.1 350.1.13.10 ity of 3.104.2.7 4.2.7.3.698 [place] .3.593456 084.8 Medica l .8 [place] 2021-06-17 2021-06-17 Travel 1.2.840.1 1.2.633.365 8679 3149 Univers 00:00:00 00:00:00 84657.1.1 350.1.13.10 ity of 3.104.2.7 4.2.7.3.698 [place] .3.277672 084.8 Medica l .8 [place] 2021-06-17 2021-06-17 Travel 1.2.840.1 1.2.543.384 7535 3149 Univers 00:00:00 00:00:00 01207.1.1 350.1.13.10 ity of 3.104.2.7 4.2.7.3.698 [place] .3.112003 084.8 Medica l .8 [place] 2021-06-14 2021-06-14 Outpatient R SELF, [facility] [id number] Univers 11:00:00 12:13:42 JAMES erickson o f [facility] 2021-06-14 2021-06-14 Travel 1.2.840.1 1.2.878.692 9562 7514 Univers 00:00:00 00:00:00 60035.1.1 350.1.13.10 ity of 3.104.2.7 4.2.7.3.698 [place] .3.381891 084.8 Medica l .8 [place] 2021-06-14 2021-06-14 Travel 1.2.840.1 1.2.697.036 6697 7514 [facility] 00:00:00 00:00:00 53157.1.1 350.1.13.10 ity of 3.104.2.7 4.2.7.3.698 [place] .3.046784 084.8 Medica l .8 [place] 2021-06-14 2021-06-14 Travel 1.2.840.1 1.2.780.553 7143 7514 Univers 00:00:00 00:00:00 94413.1.1 350.1.13.10 ity of 3.104.2.7 4.2.7.3.698 [place] .3.201179 084.8 Medica l .8 [place] 2021-06-14 2021-06-14 Travel 1.2.840.1 1.2.091.295 1307 7514 [facility] 00:00:00 00:00:00 25108.1.1 350.1.13.10 ity of 3.104.2.7 4.2.7.3.698 [place] .3.634789 084.8 Medica l .8 [place] 2021-06-10 2021-06-10 Patient Burton, 1.2.840.[id number] [place] [address] 00:00:00 00:00:00 Blanka Rm 01164.1.1 ity of 3.104.2.7 [place] .3.393881 Medica l .8 [facility] 2021-06-10 2021-06-10 Patient Burton, 1.2.840.3 [id number] Univers 00:00:00 00:00:00 Outreach Britt J 22432.1.1 ity of 3.104.2.7 [place] .3.442451 Medica l .8 [place] 2021-06-10 2021-06-10 Patient Burton, 1.2.840.5 [id number] 075 Univers 00:00:00 00:00:00 Outreach Britt J 49384.1.1 ity of 3.104.2.7 [place] .3.748752 Medica l .8 [place] 2021-06-10 2021-06-10 Patient Burton, 1.2.840.7 [id number] Univers 00:00:00 00:00:00 Outreach Britt J 27924.1.1 ity of 3.104.2.7 [place] .3.735195 Medica l .8 [place] 2021-06-03 2021-06-03 Outpatient R GEOVANNI, [facility] [id number] Univers 14:00:00 14:22:42 HONORIO ity of [facility] 2021-06-03 2021-06-03 Travel 1.2.840.1 1.2.523.729 6559 4897 Univers 00:00:00 00:00:00 77957.1.1 350.1.13.10 ity of 3.104.2.7 4.2.7.3.698 [place] .3.146228 084.8 Medica l .8 [place] 2021-06-03 2021-06-03 Travel 1.2.840.1 1.2.354.892 4736 4897 Univers 00:00:00 00:00:00 31882.1.1 350.1.13.10 ity of 3.104.2.7 4.2.7.3.698 [place] .3.898074 084.8 Medica l .8 [place] 2021-06-03 2021-06-03 Travel 1.2.840.1 1.2.807.896 2085 4897 Univers 00:00:00 00:00:00 23424.1.1 350.1.13.10 ity of 3.104.2.7 4.2.7.3.698 [place] .3.336877 084.8 Medica l .8 [place] 2021-06-03 2021-06-03 Travel 1.2.840.1 1.2.648.839 6948 4897 Univers 00:00:00 00:00:00 10928.1.1 350.1.13.10 ity of 3.104.2.7 4.2.7.3.698 [place] .3.838606 084.8 Medica l .8 [facility] 2021-05-26 2021-05-26 [facility], 1.2.840.1 [id number] 9138 Univers 09:40:00 23:59:00 Encounter Burke De La Cruz 06204.1.1 ity of 3.104.2.7 [place] .3.743385 Medica l .8 [facility] 2021-05-26 2021-05-26 [facility], 1.2.840.8 [id number] 9138 Univers 09:40:00 23:59:00 Encounter Burke De La Cruz 75586.1.1 ity of 3.104.2.7 [place] .3.802202 Medica l .8 [place] 2021-05-26 2021-05-26 [facility], 1.2.840.9 [id number] 9138 Univers 09:40:00 23:59:00 Encounter Burke De La Cruz 74715.1.1 ity of 3.104.2.7 [place] .3.540854 Medica l .8 [place] 2021-05-26 2021-05-26 Outpatient R ASHLEE, [facility] NUT [id number] Univers 00:00:00 00:00:00 BURKE itadrian of [facility] 2021-05-25 2021-05-25 Emergency [facility] [id number] [facility] 23:19:00 23:19:00 94 2021-05-24 2021-05-24 Outpatient R REYNALDO, [facility] [id number] Univers 11:00:00 11:31:18 JAMES erickson o f [facility] 2021-05-24 2021-05-24 Travel 1.2.840.1 1.2.748.108 3548 1167 Univers 00:00:00 00:00:00 43473.1.1 350.1.13.10 ity of 3.104.2.7 4.2.7.3.698 [place] .3.960126 084.8 Medica l .8 [place] 2021-05-24 2021-05-24 Travel 1.2.840.1 1.2.913.182 8099 1167 Univers 00:00:00 00:00:00 09646.1.1 350.1.13.10 ity of 3.104.2.7 4.2.7.3.698 [place] .3.835431 084.8 Medica l .8 [place] 2021-05-24 2021-05-24 Travel 1.2.840.1 1.2.805.310 5551 1167 Univers 00:00:00 00:00:00 62985.1.1 350.1.13.10 ity of 3.104.2.7 4.2.7.3.698 [place] .3.622885 084.8 Medica l .8 [place] 2021-05-10 2021-05-10 Outpatient R SELF, [facility] [id number] Univers 08:45:00 08:45:00 JAMES anderson [facility] 2021-04-29 2021-04-29 Outpatient R GALARZA, [facility] [id number] Univers 13:00:00 13:33:16 HONORIO ity [facility] [place] [facility] 2021-04-29 2021-04-29 Outpatient R GALARZA, [facility] [id number] Univers 13:00:00 13:00:00 HONORIO ity [facility] [place] [facility] 2021-04-29 2021-04-29 Travel 1.2.840.1 1.2.602.176 3839 6843 Univers 00:00:00 00:00:00 08191.1.1 350.1.13.10 ity of 3.104.2.7 4.2.7.3.698 [place] .3.294582 084.8 Medica l .8 [place] 2021-04-29 2021-04-29 Travel 1.2.840.1 1.2.136.489 8894 6843 Univers 00:00:00 00:00:00 22436.1.1 350.1.13.10 ity of 3.104.2.7 4.2.7.3.698 [place] .3.847802 084.8 Medica l .8 [place] 2021-03-18 2021-03-18 [facility] [id number] Univers 15:00:00 15:00:00 [facility] 2021-03-18 2021-03-18 Travel 1.2.840.1 1.2.370.272 3435 6290 Univers 00:00:00 00:00:00 17990.1.1 350.1.13.10 ity of 3.104.2.7 4.2.7.3.698 [place] .3.769305 084.8 Medica l .8 [place] 2021-03-15 2021-03-15 [facility] [id number] Univers 10:15:00 10:15:00 JAMES anderson [facility] 2021-02-25 2021-02-25 [facility] [id number] Univers 09:00:00 09:00:00 [facility] 2021-02-25 2021-02-25 Travel 1.2.840.1 1.2.402.190 8489 5255 Univers 00:00:00 00:00:00 21762.1.1 350.1.13.10 ity of 3.104.2.7 4.2.7.3.698 [place] .3.445438 084.8 Medica l .8 [place] 2021-02-15 2021-02-15 Outpatient R SELF, [facility] [id number] Univers 11:00:00 11:00:00 JAMES anderson [facility] 2021-02-15 2021-02-15 Travel 1.2.840.1 1.2.915.362 9979 5687 Univers 00:00:00 00:00:00 03327.1.1 350.1.13.10 ity of 3.104.2.7 4.2.7.3.698 [place] .3.829431 084.8 Medica l .8 [place] 2021-02-11 2021-02-11 [facility] [id number] Univers 11:00:00 11:00:00 HONORIO ity [facility] [place] [facility] 2021-02-11 2021-02-11 Travel 1.2.840.1 1.2.674.107 7349 4822 Univers 00:00:00 00:00:00 83722.1.1 350.1.13.10 ity of 3.104.2.7 4.2.7.3.698 [place] .3.920205 084.8 Medica l .8 [place] 2021-01-28 2021-01-[address]istrar Paolo Rivera 1.2.840.0 [id number] Univers 13:53:29 14:08:29 Visit Pcp-Lab 43548.1.1 ity of 3.104.2.7 [place] .3.533222 Medica l .8 [place] 2021-01-28 2021-01-28 Outpatient R GEOVANNI [facility] [id number] Univers 13:00:00 13:00:00 HONORIO ity [facility] [place] [facility] 2021-01-28 2021-01-28 Travel 1.2.840.1 1.2.541.170 9576 1440 Univers 00:00:00 00:00:00 88066.1.1 350.1.13.10 ity of 3.104.2.7 4.2.7.3.698 [place] .3.167562 084.8 Medica l .8 [place] 2021-01-25 2021-01-25 Outpatient R REYNALDO [facility] [id number] Univers 09:30:00 09:30:00 JAMES anderson [facility] 2021-01-25 2021-01-25 Travel 1.2.840.1 1.2.722.945 7815 4049 Univers 00:00:00 00:00:00 99066.1.1 350.1.13.10 ity of 3.104.2.7 4.2.7.3.698 [place] .3.399109 084.8 Medica l .8 [place] 2021-01-13 2021-01-13 Outpatient R REYNALDO, [facility] [id number] Univers 16:00:00 16:00:00 JAMES anderson [facility] 2021-01-13 2021-01-13 Travel 1.2.840.1 1.2.632.240 7661 8345 Univers 00:00:00 00:00:00 14135.1.1 350.1.13.10 ity of 3.104.2.7 4.2.7.3.698 [place] .3.404285 084.8 Medica l .8 [place] 2020-12-31 2020-12-[address]ist[address] Tim Holguin 1.2.840.8 [id number] Univers 16:38:39 16:54:09 Visit Pcp-Lab 76603.1.1 ity of 3.104.2.7 [place] .3.086789 Medica l .8 [place] 2020-12-31 2020-12-31 [facility] [id number] Univers 16:00:00 16:00:00 HONORIO ity of [facility] 2020-12-31 2020-12-31 Travel 1.2.840.1 1.2.301.773 0490 7339 Univers 00:00:00 00:00:00 46022.1.1 350.1.13.10 ity of 3.104.2.7 4.2.7.3.698 [place] .3.796961 084.8 Medica l .8 [place] 2020-12-28 2020-12-28 Orders Doctor 1.2.840.9 [id number] Univers 00:00:00 00:00:00 Only Unassigned, 61691.1.1 ity of [place] 3.104.2.7 [place] .3.996010 Medica l .8 [place] 2020-12-24 2020-12-24 Outpatient Escobar HOLGUIN [facility] [id number] Univers 11:00:00 11:00:00 TIM campbell [facility] 2020-12-24 2020-12-24 Travel 1.2.840.1 1.2.136.941 8217 7276 Univers 00:00:00 00:00:00 60376.1.1 350.1.13.10 ity of 3.104.2.7 4.2.7.3.698 [place] .3.194429 084.8 Medica l .8 [place] 2020-12-17 2020-12-17 Outpatient Escobar GEOVANNI [facility] [id number] Univers 11:00:00 11:00:00 HONORIO erickson [facility] 2020-11-26 2020-11-26 Outpatient Escobar GALARZA [facility] [id number] Univers 16:00:00 16:00:00 HONORIO erickson [facility] 2020-11-26 2020-11-26 Travel 1.2.840.1 1.2.036.026 7175 0854 Univers 00:00:00 00:00:00 34130.1.1 350.1.13.10 ity of 3.104.2.7 4.2.7.3.698 [place] .3.432218 084.8 Medica l .8 [place] 2020-11-26 2020-11-26 Travel 1.2.840.1 1.2.277.893 7970 0854 Univers 00:00:00 00:00:00 73374.1.1 350.1.13.10 ity of 3.104.2.7 4.2.7.3.698 [place] .3.604766 084.8 Medica l .8 [place] 2020-11-21 2020-11-21 Imm/Inj Gideon Montez 1.2.840.0 [id number] Univers 10:04:35 10:09:35 Visit Immunization, [facility] 74611.1.1 ity of 3.104.2.7 [place] .3.311799 Medica l .8 [place] 2020-11-21 2020-11-21 Outpatient R CARLOS MANUEL [facility] [id number] Univers 10:05:00 10:05:00 GIDEON ity of [facility] 2020-11-17 2020-11-17 Outpatient R CHELSY ROMO [facility] [id number] Univers 15:45:00 15:45:00 ity of [facility] 2020-11-17 2020-11-17 Travel 1.2.840.1 1.2.850.225 [id number] Univers 00:00:00 00:00:00 08635.1.1 350.1.13.10 ity of 3.104.2.7 4[place].3.698 [place] .3.720771 084.8 Medica l .8 [place] 2020-11-16 2020-11-16 Orders Doctor 1.2.840.1 [id number] Univers 00:00:00 00:00:00 Only Unassigned, 40083.1.1 ity of [place] 3.104.2.7 [place] .3.843026 Medica l .8 [place] 2020-11-12 2020-11-12 Outpatient R GEOVANNI [facility] [id number] Univers 08:00:00 08:00:00 HONORIO ity [facility] 2020-11-12 2020-11-12 Travel 1.2.840.1 1.2.217.676 [id number] Univers 00:00:00 00:00:00 36564.1.1 350.1.13.10 ity of 3.104.2.[place] 4[place].3.698 [place] .3.859306 084.8 Medica l .8 [place] 2020-10-29 2020-10-29 Outpatient R EZIO [facility] [id number] Univers 09:30:00 09:30:00 TIM it y of [facility] 2020-10-24 2020-10-24 Imm/Inj Gio Martinez 1.2.840.1 [id number] Univers 09:54:36 10:09:56 Visit Immunization, [place] [facility] [employer] 52765.1.1 ity of 3.104.2.7 [place] .3.376430 Medica l .8 [place] 2020-10-24 2020-10-24 Outpatient R MAHESH [facility] [id number] Univers 10:00:00 10:00:00 GIO ity of [facility] 2020-10-24 2020-10-24 Travel 1.2.840.1 1.2.019.764 [id number] Univers 00:00:00 00:00:00 41920.1.1 350.1.13.10 ity of 3.104.2.7 4.2.7.3.698 [place] .3.942257 084.8 Medica l .8 [place] 2020-09-25 2020-09-26 Emergency E BRINDA, [facility] [id number] [address] [place] [address] 23:49:00 10:04:00 [facility] 2020-09-17 2020-09-17 Telephone Montes, 1.2.840.8 [id number] Univers 00:00:00 00:00:00 [place] A 88832.1.1 i ty of 3.104.2.7 [place] .3.416618 Medica l .8 [place] 2020-08-18 2020-08-18 Outpatient R CHELSY ROMO [facility] [id number] Univers 15:00:00 15:00:00 ity of [facility] 2020-07-08 2020-07-08 Office Montes, 1.2.840.3 [id number] Univers 12:55:33 15:36:41 Visit [place] A 49121.1.1 i ty of 3.104.2.7 [place] .3.762318 Medica l .8 [place] 2020-07-08 2020-07-08 Outpatient R NILTON MONTES [facility] [id number] Univers 13:30:00 13:30:00 NILTON MONTES ity of [facility] 2020-07-08 2020-07-08 Orders Doctor 1.2.840.8 [id number] Univers 00:00:00 00:00:00 Only Unassigned, 84670.1.1 ity of [place] 3.104.2.7 [place] .3.022219 Medica l .8 [place] 2020-07-08 2020-07-08 Letter Simon, 1.2.840.3 [id number] Univers 00:00:00 00:00:00 (Out) [place] A 49985.1.1 i ty of 3.104.2.7 [place] .3.866197 Medica l .8 [place] 2020-05-21 2020-05-21 Outpatient R NICOLE [facility] [id number] Univers 10:15:00 10:15:00 DENA ity of [facility] 2020-05-21 2020-05-21 Orders Doctor 1.2.840.8 [id number] Univers 00:00:00 00:00:00 Only Unassigned, 56398.1.1 ity of [place] 3.104.2.7 [place] .3.018827 Medica l .8 [place] 2020-04-24 2020-04-24 Outpatient R ASH RAMIREZ [facility] [id number] Univers 16:00:00 16:00:00 ity of [facility] 2020-04-22 2020-04-22 Telephone Fish, Ash 1.2.840.9 [id number] Univers 00:00:00 00:00:00 50107.1.1 ity of 3.104.2.7 [place] .3.065655 Medica l .8 [place] 2020-04-21 2020-04-21 Case Fish, Ash 1.2.840.8 [id number] Univers 00:00:00 00:00:00 Management 71616.1.1 i ty of 3.104.2.7 [place] .3.405848 Medica l .8 [place] 2020-04-20 2020-04-20 Office Fish, Ash 1.2.840.4 [id number] Univers 15:09:50 16:30:58 Visit 13348.1.1 ity of 3.104.2.7 [place] .3.173718 Medica l .8 [place] 2020-04-20 2020-04-20 Outpatient R ASH RAMIREZ [facility] [id number] Univers 15:30:00 15:30:00 ity of [facility] 2020-04-20 2020-04-20 Travel 1.2.840.1 1.2.144.262 [id number] Univers 00:00:00 00:00:00 03864.1.1 350.1.13.10 ity of 3.104.2.[place] 4.[place]7.3.698 [place] .3.572062 084.8 Medica l .8 [place] 2020-04-16 2020-04-16 Emergency Che[place], Kitty 1.2.840.8 [id number] Univers 11:02:00 13:56:00 Bree 55086.1.1 ity of 3.104.2.7 [place] .3.298872 Medica l .8 [place] 2020-04-16 2020-04-16 Travel 1.2.840.1 1.2.014.760 [id number] Univers 00:00:00 00:00:00 86617.1.1 350.1.13.10 ity of 3.104.2.[place] 4.[place].3.698 [place] .3.606273 084.8 Medica l .8 [place] 2020-04-07 2020-04-07 Outpatient R CHELSY ROMO [facility] [id number] Univers 13:30:00 13:30:00 ity of [facility] 2020-04-07 2020-04-07 Travel 1.2.840.1 1.2.344.855 [id number] Univers 00:00:00 00:00:00 95772.1.1 350.1.13.10 ity of 3.104.2.[place].3.698 [place] .3.459865 084.8 Medica l .8 [place] 2020-01-30 2020-01-30 Outpatient R DEFILIPPIS, [facility] [id number] Univers 15:45:00 15:45:00 TRUNG ity of [facility] 2020-01-30 2020-01-30 Travel 1.2.840.1 1.2.708.444 [id number] Univers 00:00:00 00:00:00 79483.1.1 350.1.13.10 ity of 3.104.2.[place] 4.[place].3.698 [place] .3.292952 084.8 Medica l .8 [place] 2020-01-01 2020-01-01 Orders Doctor 1.2.840.6 [id number] Univers 00:00:00 00:00:00 Only Unassigned, 02798.1.1 ity of [place] 3.104.2.7 [place] .3.824817 Medica l .8 [place] 2019-10-22 2019-10-22 Outpatient R CLARISSACHELSY [facility] [id number] Univers 15:45:00 15:45:00 ity of [facility] 2019-09-12 2019-09-12 Urgent Unknown, Attending 1.2.840.1 [id number] Univers 17:51:35 19:25:20 Ruchi Camargo 34251.1.1 ity of 3.104.2.7 [place] .3.277091 Medica l .[address] [place] [address] 2019-09-12 2019-09-12 Outpatient R UNKNOWN, [facility] [id number] Univers 18:00:00 18:00:00 ATTENDING ity [facility] [place] [facility] 2019-07-04 2019-07-04 Orders Doctor 1.2.840.7 [id number] Univers 00:00:00 00:00:00 Only Unassigned, 28618.1.1 ity of [place] 3.104.2.7 [place] .3.237634 Medica l .8 [place] 2019-04-02 2019-04-02 Orders Doctor 1.2.840.3 [id number] Univers 00:00:00 00:00:00 Only Unassigned, 41893.1.1 ity of [place] 3.104.2.7 [place] .3.960482 Medica l .8 Branch 2018-10-31 2018-10-31 Nurse Nilton Montes 1.2.840.1 04061 [id number] [facility] 14:59:26 16:42:50 Visit Nurse, Han Rai 01160.1.1 ity of 3.104.2.7 [place] .3.618112 Medica l .8 Branch Results Test Description Test Time Test Comments Results Result Comments Source AG STREP GROUP A (THROAT) POC 2022-07-15 20:12:00 Test Item Value Reference Range Interpretation Comme nts AG STREP GROUP A (THROAT) POC (test code = STREPAPOC) negative NEGATIVE POCT [id number] 01:46:00 Test Item Value Reference Range Interpretation Comments POCT PREG (test code = 1605) Negative On board controls acceptable with Present C Line (test code = 3574) POCT PREG LOT # (test code = HCG 20110903 357) POCT PREG TEST DATE (test 07/02/2023 code = 3576) Lab Interpretation (test code = Normal 70769-7) [facility] [id number] 01:46:00 Test Item Value Reference Range Interpretation Comments POCT PREG (test code = 1605) Negative On board controls acceptable with Present C Line (test code = 3574) POCT PREG LOT # (test code = HCG 20110903) POCT PREG TEST DATE (test 07/02/2023 code = 3576) Lab Interpretation (test code = Normal 87453-1) [facility] [id number] 01:46:00 Test Item Value Reference Range Interpretation Comments POCT PREG (test code = 1605) Negative On board controls acceptable with Present C Line (test code = 3574) POCT PREG LOT # (test code = HCG 20110903) POCT PREG TEST DATE (test 07/02/2023 code = 3576) Lab Interpretation (test code = Normal 21502-8) [facility] [id number] 01:46:00 Test Item Value Reference Range Interpretation Comments POCT PREG (test code = 1605) Negative On board controls acceptable with Present C Line (test code = 3574) POCT PREG LOT # (test code = HCG 20110903) POCT PREG TEST DATE (test 07/02/2023 code = 3576) Lab Interpretation (test code = Normal 59546-6) [facility] [id number] 01:46:00 Test Item Value Reference Range Interpretation Comments POCT PREG (test code = 1605) Negative On board controls acceptable with Present C Line (test code = 3574) POCT PREG LOT # (test code = HCG 20110903) POCT PREG TEST DATE (test 07/02/2023 code = 3576) Lab Interpretation (test code = Normal 32775-2) [facility] [id number] 01:46:00 Test Item Value Reference Range Interpretation Comments POCT PREG (test code = 1605) Negative On board controls acceptable with Present C Line (test code = 3574) POCT PREG LOT # (test code = HCG 20110903) POCT PREG TEST DATE (test 07/02/2023 code = 3576) Lab Interpretation (test code = Normal 52594-9) [facility] [id number] 01:46:00 Test Item Value Reference Range Interpretation Comments POCT PREG (test code = 1605) Negative On board controls acceptable with Present C Line (test code = 3574) POCT PREG LOT # (test code = HCG 20110903) POCT PREG TEST DATE (test 07/02/2023 code = 3576) Lab Interpretation (test code = Normal 71341-5) [facility] [id number] 01:46:00 Test Item Value Reference Range Interpretation Comments POCT PREG (test code = 1605) Negative On board controls acceptable with Present C Line (test code = 3574) POCT PREG LOT # (test code = HCG 20110903) POCT PREG TEST DATE (test 07/02/2023 code = 3576) Lab Interpretation (test code = Normal 02736-5) [facility] [id number] 01:46:00 Test Item Value Reference Range Interpretation Comments POCT PREG (test code = 1605) Negative On board controls acceptable with Present C Line (test code = 3574) POCT PREG LOT # (test code = HCG 20110903) POCT PREG TEST DATE (test 07/02/2023 code = 3576) Lab Interpretation (test code = Normal 40220-8) [facility] [id number] 01:46:00 Test Item Value Reference Range Interpretation Comments POCT PREG (test code = 1605) Negative On board controls acceptable with Present C Line (test code = 3574) POCT PREG LOT # (test code = HCG 20110903) POCT PREG TEST DATE (test 07/02/2023 code = 3576) Lab Interpretation (test code = Normal 29003-7) [facility] [id number] 01:46:00 Test Item Value Reference Range Interpretation Comments POCT PREG (test code = 1605) Negative On board controls acceptable with Present C Line (test code = 3574) POCT PREG LOT # (test code = HCG 20110903) POCT PREG TEST DATE (test 07/02/2023 code = 3576) Lab Interpretation (test code = Normal 82281-7) [facility] [id number] 01:46:00 Test Item Value Reference Range Interpretation Comments POCT PREG (test code = 1605) Negative On board controls acceptable with Present C Line (test code = 3574) POCT PREG LOT # (test code = HCG 20110903) POCT PREG TEST DATE (test 07/02/2023 code = 3576) Lab Interpretation (test code = Normal 22414-6) [facility] [id number] 01:46:00 Test Item Value Reference Range Interpretation Comments POCT PREG (test code = 1605) Negative On board controls acceptable with Present C Line (test code = 3574) POCT PREG LOT # (test code = HCG 20110903) POCT PREG TEST DATE (test 07/02/2023 code = 3576) Lab Interpretation (test code = Normal 80321-8) [facility] [id number] 01:46:00 Test Item Value Reference Range Interpretation Comments POCT PREG (test code = 1605) Negative On board controls acceptable with Present C Line (test code = 3574) POCT PREG LOT # (test code = HCG 20110903) POCT PREG TEST DATE (test 07/02/2023 code = 3576) Lab Interpretation (test code = Normal 81679-8) [facility] [id number] 01:46:00 Test Item Value Reference Range Interpretation Comments POCT PREG (test code = 1605) Negative On board controls acceptable with Present C Line (test code = 3574) POCT PREG LOT # (test code = HCG 20110903) POCT PREG TEST DATE (test 07/02/2023 code = 3576) Lab Interpretation (test code = Normal 56906-8) [facility] [id number] 01:46:00 Test Item Value Reference Range Interpretation Comments POCT PREG (test code = 1605) Negative On board controls acceptable with Present C Line (test code = 3574) POCT PREG LOT # (test code = HCG 20110903) POCT PREG TEST DATE (test 07/02/2023 code = 3576) Lab Interpretation (test code = Normal 24220-8) [facility] [id number] 01:46:00 Test Item Value Reference Range Interpretation Comments POCT PREG (test code = 1605) Negative On board controls acceptable with Present C Line (test code = 3574) POCT PREG LOT # (test code = HCG 20110903) POCT PREG TEST DATE (test 07/02/2023 code = 3576) Lab Interpretation (test code = Normal 87542-3) [facility] [id number] 01:46:00 Test Item Value Reference Range Interpretation Comments POCT PREG (test code = 1605) Negative On board controls acceptable with Present C Line (test code = 3574) POCT PREG LOT # (test code = HCG 20110903) POCT PREG TEST DATE (test 07/02/2023 code = 3576) Lab Interpretation (test code = Normal 30937-8) [facility] [id number] 01:46:00 Test Item Value Reference Range Interpretation Comments POCT PREG (test code = 1605) Negative On board controls acceptable with Present C Line (test code = 3574) POCT PREG LOT # (test code = HCG 20110903) POCT PREG TEST DATE (test 07/02/2023 code = 3576) Lab Interpretation (test code = Normal 35799-4) [facility] [id number] 01:46:00 Test Item Value Reference Range Interpretation Comments POCT PREG (test code = 1605) Negative On board controls acceptable with Present C Line (test code = 3574) POCT PREG LOT # (test code = HCG 20110903) POCT PREG TEST DATE (test 07/02/2023 code = 3576) Lab Interpretation (test code = Normal 54228-3) [facility] [id number] 01:46:00 Test Item Value Reference Range Interpretation Comments POCT PREG (test code = 1605) Negative On board controls acceptable with Present C Line (test code = 3574) POCT PREG LOT # (test code = HCG 20110903) POCT PREG TEST DATE (test 07/02/2023 code = 3576) Lab Interpretation (test code = Normal 57775-9) [facility] [id number] 01:46:00 Test Item Value Reference Range Interpretation Comments POCT PREG (test code = 1605) Negative On board controls acceptable with Present C Line (test code = 3574) POCT PREG LOT # (test code = HCG 20110903) POCT PREG TEST DATE (test 07/02/2023 code = 3576) Lab Interpretation (test code = Normal 51602-1) [facility] [id number] 01:46:00 Test Item Value Reference Range Interpretation Comments POCT PREG (test code = 1605) Negative On board controls acceptable with Present C Line (test code = 3574) POCT PREG LOT # (test code = HCG 20110903) POCT PREG TEST DATE (test 07/02/2023 code = 3576) Lab Interpretation (test code = Normal 27942-3) [facility] METABOLIC PANEL (NA, K, CL, CO2, GLUCOSE, BUN, CREATININE, CA)2022-04-05 11:08:28 Test Item Value Reference Range Interpretation Comments NA (test code = 137 mmol/L 135-145 9048461749) K (test code = 3.8 mmol/L 3.5-5 3259940871) CL (test code = 104 mmol/L 98-108 9043493094) CO2 TOTAL (test code 27 mmol/L 23-31 = 1324919802) AGAP (test code = 2-16 6776731764) BUN (test code = 13 mg/dL 7-23 9687447095) GLUCOSE (test code = 106 mg/dL 70-110 8020494588) CREATININE (test code 0.58 mg/dL 0.5-1.04 = 5189791838) CALCIUM (test code = 8.6 mg/dL 8.6-10.6 1938836945) eGFR (test code = mL/min/1.73m2 4788468658) MEDHAT (test code = MEDHAT) Association of [...] urine or abnormalities in imaging tests). [facility] METABOLIC PANEL (NA, K, CL, CO2, GLUCOSE, BUN, CREATININE, CA)2022-04-05 11:08:28 Test Item Value Reference Range Interpretation Comments NA (test code = 137 mmol/L 135-145 3535663181) K (test code = 3.8 mmol/L 3.5-5 7682855328) CL (test code = 104 mmol/L 98-108 3575992928) CO2 TOTAL (test code 27 mmol/L 23-31 = 9482590467) AGAP (test code = 2-16 8436989288) BUN (test code = 13 mg/dL 7-23 2532578502) GLUCOSE (test code = 106 mg/dL 70-110 5525842560) CREATININE (test code 0.58 mg/dL 0.5-1.04 = 0843323108) CALCIUM (test code = 8.6 mg/dL 8.6-10.6 2053413693) eGFR (test code = mL/min/1.73m2 8204042821) MEDHAT (test code = MEDHAT) Association of [...] urine or abnormalities in imaging tests). [facility] METABOLIC PANEL (NA, K, CL, CO2, GLUCOSE, BUN, CREATININE, CA)2022-04-05 11:08:28 Test Item Value Reference Range Interpretation Comments NA (test code = 137 mmol/L 135-145 1211095559) K (test code = 3.8 mmol/L 3.5-5 1147324371) CL (test code = 104 mmol/L 98-108 1042929184) CO2 TOTAL (test code 27 mmol/L 23-31 = 9556800474) AGAP (test code = 2-16 6040186571) BUN (test code = 13 mg/dL 7-23 8744467975) GLUCOSE (test code = 106 mg/dL 70-110 9589101169) CREATININE (test code 0.58 mg/dL 0.5-1.04 = 2453572263) CALCIUM (test code = 8.6 mg/dL 8.6-10.6 8975650659) eGFR (test code = mL/min/1.73m2 0635432018) MEDHAT (test code = MEDHAT) Association of [...] urine or abnormalities in imaging tests). [facility] METABOLIC PANEL (NA, K, CL, CO2, GLUCOSE, BUN, CREATININE, CA)2022-04-05 11:08:28 Test Item Value Reference Range Interpretation Comments NA (test code = 137 mmol/L 135-145 2583641089) K (test code = 3.8 mmol/L 3.5-5 0636677278) CL (test code = 104 mmol/L 98-108 0973787013) CO2 TOTAL (test code 27 mmol/L 23-31 = 1387635416) AGAP (test code = 2-16 7149838594) BUN (test code = 13 mg/dL 7-23 9915865131) GLUCOSE (test code = 106 mg/dL 70-110 1628619333) CREATININE (test code 0.58 mg/dL 0.5-1.04 = 7151076603) CALCIUM (test code = 8.6 mg/dL 8.6-10.6 4300763121) eGFR (test code = mL/min/1.73m2 1766825838) MEDHAT (test code = MEDHAT) Association of [...] urine or abnormalities in imaging tests). [facility] METABOLIC PANEL (NA, K, CL, CO2, GLUCOSE, BUN, CREATININE, CA)2022-04-05 11:08:28 Test Item Value Reference Range Interpretation Comments NA (test code = 137 mmol/L 135-145 9436552827) K (test code = 3.8 mmol/L 3.5-5 2582294372) CL (test code = 104 mmol/L 98-108 7087616950) CO2 TOTAL (test code 27 mmol/L 23-31 = 9680496314) AGAP (test code = 2-16 8353860028) BUN (test code = 13 mg/dL 7-23 1650927217) GLUCOSE (test code = 106 mg/dL 70-110 4237954853) CREATININE (test code 0.58 mg/dL 0.5-1.04 = 2761760820) CALCIUM (test code = 8.6 mg/dL 8.6-10.6 5830408141) eGFR (test code = mL/min/1.73m2 7372704019) MEDHAT (test code = MEDHAT) Association of [...] urine or abnormalities in imaging tests). [facility] METABOLIC PANEL (NA, K, CL, CO2, GLUCOSE, BUN, CREATININE, CA)2022-04-05 11:08:28 Test Item Value Reference Range Interpretation Comments NA (test code = 137 mmol/L 135-145 7078205794) K (test code = 3.8 mmol/L 3.5-5 4308830301) CL (test code = 104 mmol/L 98-108 0070797328) CO2 TOTAL (test code 27 mmol/L 23-31 = 2120088517) AGAP (test code = 2-16 5645981729) BUN (test code = 13 mg/dL 7-23 6232149656) GLUCOSE (test code = 106 mg/dL 70-110 5288545968) CREATININE (test code 0.58 mg/dL 0.5-1.04 = 6984666411) CALCIUM (test code = 8.6 mg/dL 8.6-10.6 5409173055) eGFR (test code = mL/min/1.73m2 7725552754) MEDHAT (test code = MEDHAT) Association of [...] urine or abnormalities in imaging tests). [facility] METABOLIC PANEL (NA, K, CL, CO2, GLUCOSE, BUN, CREATININE, CA)2022-04-05 11:08:28 Test Item Value Reference Range Interpretation Comments NA (test code = 137 mmol/L 135-145 7146702342) K (test code = 3.8 mmol/L 3.5-5 1133983266) CL (test code = 104 mmol/L 98-108 4992991654) CO2 TOTAL (test code 27 mmol/L 23-31 = 0886502801) AGAP (test code = 2-16 0592525819) BUN (test code = 13 mg/dL 7-23 7313539931) GLUCOSE (test code = 106 mg/dL 70-110 4189203535) CREATININE (test code 0.58 mg/dL 0.5-1.04 = 7961743946) CALCIUM (test code = 8.6 mg/dL 8.6-10.6 8473048336) eGFR (test code = mL/min/1.73m2 3327113545) MEDHAT (test code = MEDHAT) Association of [...] or urine or abnormalities in imaging tests). [facility] (NA, K, CL, CO2, GLUCOSE, BUN, CREATININE, CA)2022-04-05 11:08:28 Test Item Value Reference Range Interpretation Comments NA (test code = 137 mmol/L 135-145 5446448219) K (test code = 3.8 mmol/L 3.5-5 7817333615) CL (test code = 104 mmol/L 98-108 6893553680) CO2 TOTAL (test code 27 mmol/L 23-31 = 6144161409) AGAP (test code = 2-16 8027685443) BUN (test code = 13 mg/dL 7-23 6263315903) GLUCOSE (test code = 106 mg/dL 70-110 8685176845) CREATININE (test code 0.58 mg/dL 0.5-1.04 = 7597098246) CALCIUM (test code = 8.6 mg/dL 8.6-10.6 8575403576) eGFR (test code = mL/min/1.73m2 0935692400) MEDHAT (test code = MEDHAT) Association of [...] or urine or abnormalities in imaging tests). [facility] (NA, K, CL, CO2, GLUCOSE, BUN, CREATININE, CA)2022-04-05 11:08:28 Test Item Value Reference Range Interpretation Comments NA (test code = 137 mmol/L 135-145 5128091318) K (test code = 3.8 mmol/L 3.5-5 8162878443) CL (test code = 104 mmol/L 98-108 3482572024) CO2 TOTAL (test code 27 mmol/L 23-31 = 2633007461) AGAP (test code = 2-16 7539607652) BUN (test code = 13 mg/dL 7-23 7538315190) GLUCOSE (test code = 106 mg/dL 70-110 9012104715) CREATININE (test code 0.58 mg/dL 0.5-1.04 = 5461080424) CALCIUM (test code = 8.6 mg/dL 8.6-10.6 8300430816) eGFR (test code = mL/min/1.73m2 5377921488) MEDHAT (test code = MEDHAT) Association of [...] urine or abnormalities in imaging tests). [facility] METABOLIC PANEL (NA, K, CL, CO2, GLUCOSE, BUN, CREATININE, CA)2022-04-05 11:08:28 Test Item Value Reference Range Interpretation Comments NA (test code = 137 mmol/L 135-145 1809479716) K (test code = 3.8 mmol/L 3.5-5 0999068417) CL (test code = 104 mmol/L 98-108 1146573288) CO2 TOTAL (test code 27 mmol/L 23-31 = 2782675176) AGAP (test code = 2-16 7501288577) BUN (test code = 13 mg/dL 7-23 9925702160) GLUCOSE (test code = 106 mg/dL 70-110 4437766434) CREATININE (test code 0.58 mg/dL 0.5-1.04 = 8289001828) CALCIUM (test code = 8.6 mg/dL 8.6-10.6 3802347332) eGFR (test code = mL/min/1.73m2 3821886100) MEDHAT (test code = MEDHAT) Association of [...] urine or abnormalities in imaging tests). [facility] METABOLIC PANEL (NA, K, CL, CO2, GLUCOSE, BUN, CREATININE, CA)2022-04-05 11:08:28 Test Item Value Reference Range Interpretation Comments NA (test code = 137 mmol/L 135-145 0203364591) K (test code = 3.8 mmol/L 3.5-5 3965960416) CL (test code = 104 mmol/L 98-108 8772455284) CO2 TOTAL (test code 27 mmol/L 23-31 = 7200617489) AGAP (test code = 2-16 6065631936) BUN (test code = 13 mg/dL 7-23 7282327013) GLUCOSE (test code = 106 mg/dL 70-110 5724247471) CREATININE (test code 0.58 mg/dL 0.5-1.04 = 4222169277) CALCIUM (test code = 8.6 mg/dL 8.6-10.6 1415436113) eGFR (test code = mL/min/1.73m2 1285848397) MEDHAT (test code = MEDHAT) Association of [...] urine or abnormalities in imaging tests). [facility] METABOLIC PANEL (NA, K, CL, CO2, GLUCOSE, BUN, CREATININE, CA)2022-04-05 11:08:28 Test Item Value Reference Range Interpretation Comments NA (test code = 137 mmol/L 135-145 2754779551) K (test code = 3.8 mmol/L 3.5-5 3178878642) CL (test code = 104 mmol/L 98-108 6319710243) CO2 TOTAL (test code 27 mmol/L 23-31 = 3753466083) AGAP (test code = 2-16 2086925409) BUN (test code = 13 mg/dL 7-23 3225954830) GLUCOSE (test code = 106 mg/dL 70-110 6173945012) CREATININE (test code 0.58 mg/dL 0.5-1.04 = 5176444317) CALCIUM (test code = 8.6 mg/dL 8.6-10.6 9251481214) eGFR (test code = mL/min/1.73m2 6778081837) MEDHAT (test code = MEDHAT) Association of [...] urine or abnormalities in imaging tests). [facility] METABOLIC PANEL (NA, K, CL, CO2, GLUCOSE, BUN, CREATININE, CA)2022-04-05 11:08:28 Test Item Value Reference Range Interpretation Comments NA (test code = 137 mmol/L 135-145 4279482641) K (test code = 3.8 mmol/L 3.5-5 0809642090) CL (test code = 104 mmol/L 98-108 8631940921) CO2 TOTAL (test code 27 mmol/L 23-31 = 9787711060) AGAP (test code = 2-16 7215583757) BUN (test code = 13 mg/dL 7-23 1090903909) GLUCOSE (test code = 106 mg/dL 70-110 5428195390) CREATININE (test code 0.58 mg/dL 0.5-1.04 = 7363345450) CALCIUM (test code = 8.6 mg/dL 8.6-10.6 1944586209) eGFR (test code = mL/min/1.73m2 5413461218) MEDHAT (test code = MEDHAT) Association of [...] urine or abnormalities in imaging tests). [facility] METABOLIC PANEL (NA, K, CL, CO2, GLUCOSE, BUN, CREATININE, CA)2022-04-05 11:08:28 Test Item Value Reference Range Interpretation Comments NA (test code = 137 mmol/L 135-145 3282403852) K (test code = 3.8 mmol/L 3.5-5 0600516929) CL (test code = 104 mmol/L 98-108 4842553787) CO2 TOTAL (test code 27 mmol/L 23-31 = 2063588864) AGAP (test code = 2-16 9439274888) BUN (test code = 13 mg/dL 7-23 8476681304) GLUCOSE (test code = 106 mg/dL 70-110 4884123805) CREATININE (test code 0.58 mg/dL 0.5-1.04 = 1513805196) CALCIUM (test code = 8.6 mg/dL 8.6-10.6 1366615009) eGFR (test code = mL/min/1.73m2 9550851848) MEDHAT (test code = MEDHAT) Association of [...] urine or abnormalities in imaging tests). [facility] METABOLIC PANEL (NA, K, CL, CO2, GLUCOSE, BUN, CREATININE, CA)2022-04-05 11:08:28 Test Item Value Reference Range Interpretation Comments NA (test code = 137 mmol/L 135-145 2334341962) K (test code = 3.8 mmol/L 3.5-5 5360206789) CL (test code = 104 mmol/L 98-108 5784127071) CO2 TOTAL (test code 27 mmol/L 23-31 = 5738651044) AGAP (test code = 2-16 0096921945) BUN (test code = 13 mg/dL 7-23 7153752159) GLUCOSE (test code = 106 mg/dL 70-110 7878386583) CREATININE (test code 0.58 mg/dL 0.5-1.04 = 4767966582) CALCIUM (test code = 8.6 mg/dL 8.6-10.6 3192265650) eGFR (test code = mL/min/1.73m2 8720810291) MEDHAT (test code = MEDHAT) Association of [...] urine or abnormalities in imaging tests). [facility] METABOLIC PANEL (NA, K, CL, CO2, GLUCOSE, BUN, CREATININE, CA)2022-04-05 11:08:28 Test Item Value Reference Range Interpretation Comments NA (test code = 137 mmol/L 135-145 6141044758) K (test code = 3.8 mmol/L 3.5-5.0 4091880148) CL (test code = 104 mmol/L 98-108 1927308578) CO2 TOTAL (test code 27 mmol/L 23-31 = 6523037759) AGAP (test code = 2-16 2703677979) BUN (test code = 13 mg/dL 7-23 2369399968) GLUCOSE (test code = 106 mg/dL 70-110 2507812476) CREATININE (test code 0.58 mg/dL 0.50-1.04 = 6983153892) CALCIUM (test code = 8.6 mg/dL 8.6-10.6 0365172289) eGFR (test code = mL/min/1.73m2 6815108575) MEDHAT (test code = MEDHAT) Association of [...] urine or abnormalities in imaging tests). [facility] METABOLIC PANEL (NA, K, CL, CO2, GLUCOSE, BUN, CREATININE, CA)2022-04-05 11:08:28 Test Item Value Reference Range Interpretation Comments NA (test code = 137 mmol/L 135-145 8671130170) K (test code = 3.8 mmol/L 3.5-5.0 2346898737) CL (test code = 104 mmol/L 98-108 7312780490) CO2 TOTAL (test code 27 mmol/L 23-31 = 6303067332) AGAP (test code = 2-16 8639172119) BUN (test code = 13 mg/dL 7-23 0245756961) GLUCOSE (test code = 106 mg/dL 70-110 1585868526) CREATININE (test code 0.58 mg/dL 0.50-1.04 = 5050789135) CALCIUM (test code = 8.6 mg/dL 8.6-10.6 9188154979) eGFR (test code = mL/min/1.73m2 8770889305) MEDHAT (test code = MEDHAT) Association of [...] urine or abnormalities in imaging tests). [facility] METABOLIC PANEL (NA, K, CL, CO2, GLUCOSE, BUN, CREATININE, CA)2022-04-05 11:08:28 Test Item Value Reference Range Interpretation Comments NA (test code = 137 mmol/L 135-145 [id number]) K (test code = 3.8 mmol/L 3.5-5.0 3204660338) CL (test code = 104 mmol/L 98-108 3633023555) CO2 TOTAL (test code 27 mmol/L 23-31 = 7407172535) AGAP (test code = 2-16 7254037981) BUN (test code = 13 mg/dL 7-23 0905691195) GLUCOSE (test code = 106 mg/dL 70-110 5493128997) CREATININE (test code 0.58 mg/dL 0.50-1.04 = 6680323230) CALCIUM (test code = 8.6 mg/dL 8.6-10.6 6553887948) eGFR (test code = mL/min/1.73m2 8657027749) MEDHAT (test code = MEDHAT) Association of [...] or urine or abnormalities in imaging tests). [facility] (NA, K, CL, CO2, GLUCOSE, BUN, CREATININE, CA)2022-04-05 11:08:28 Test Item Value Reference Range Interpretation Comments NA (test code = 137 mmol/L 135-145 [id number]) K (test code = 3.8 mmol/L 3.5-5.0 8579180385) CL (test code = 104 mmol/L 98-108 2967700872) CO2 TOTAL (test code 27 mmol/L 23-31 = 2382097556) AGAP (test code = 2-16 4551039644) BUN (test code = 13 mg/dL 7-23 2031034033) GLUCOSE (test code = 106 mg/dL 70-110 7983090672) CREATININE (test code 0.58 mg/dL 0.50-1.04 = 3158912461) CALCIUM (test code = 8.6 mg/dL 8.6-10.6 4033829990) eGFR (test code = mL/min/1.73m2 4467982842) MEDHAT (test code = MEDHAT) Association of [...] urine or abnormalities in imaging tests). [facility] METABOLIC PANEL (NA, K, CL, CO2, GLUCOSE, BUN, CREATININE, CA)2022-04-05 11:08:28 Test Item Value Reference Range Interpretation Comments NA (test code = 137 mmol/L 135-145 1796747336) K (test code = 3.8 mmol/L 3.5-5.0 7723804070) CL (test code = 104 mmol/L 98-108 8891369670) CO2 TOTAL (test code 27 mmol/L 23-31 = 5540625864) AGAP (test code = 2-16 1990054373) BUN (test code = 13 mg/dL 7-23 5927144842) GLUCOSE (test code = 106 mg/dL 70-110 0556573136) CREATININE (test code 0.58 mg/dL 0.50-1.04 = 8065791430) CALCIUM (test code = 8.6 mg/dL 8.6-10.6 9769862947) eGFR (test code = mL/min/1.73m2 2647928613) MEDHAT (test code = MEDHAT) Association of [...] urine or abnormalities in imaging tests). [facility] METABOLIC PANEL (NA, K, CL, CO2, GLUCOSE, BUN, CREATININE, CA)2022-04-05 11:08:28 Test Item Value Reference Range Interpretation Comments NA (test code = 137 mmol/L 135-145 1404335907) K (test code = 3.8 mmol/L 3.5-5.0 7529006100) CL (test code = 104 mmol/L 98-108 6755904363) CO2 TOTAL (test code 27 mmol/L 23-31 = 3813568305) AGAP (test code = 2-16 7032197009) BUN (test code = 13 mg/dL 7-23 5626334104) GLUCOSE (test code = 106 mg/dL 70-110 0424827748) CREATININE (test code 0.58 mg/dL 0.50-1.04 = 5438978162) CALCIUM (test code = 8.6 mg/dL 8.6-10.6 8961310808) eGFR (test code = mL/min/1.73m2 8929198715) MEDHAT (test code = MEDHAT) Association of [...] or urine or abnormalities in imaging tests). [facility] (NA, K, CL, CO2, GLUCOSE, BUN, CREATININE, CA)2022-04-05 11:08:28 Test Item Value Reference Range Interpretation Comments NA (test code = 137 mmol/L 135-145 6732729408) K (test code = 3.8 mmol/L 3.5-5.0 5435508822) CL (test code = 104 mmol/L 98-108 9248333206) CO2 TOTAL (test code 27 mmol/L 23-31 = 2689804269) AGAP (test code = 2-16 9437764192) BUN (test code = 13 mg/dL 7-23 0114087902) GLUCOSE (test code = 106 mg/dL 70-110 9568199062) CREATININE (test code 0.58 mg/dL 0.50-1.04 = 0264392298) CALCIUM (test code = 8.6 mg/dL 8.6-10.6 4403334702) eGFR (test code = mL/min/1.73m2 8415508234) MEDHAT (test code = MEDHAT) Association of [...] urine or abnormalities in imaging tests). [facility] METABOLIC PANEL (NA, K, CL, CO2, GLUCOSE, BUN, CREATININE, CA)2022-04-05 11:08:28 Test Item Value Reference Range Interpretation Comments NA (test code = 137 mmol/L 135-145 5852743444) K (test code = 3.8 mmol/L 3.5-5.0 9218419266) CL (test code = 104 mmol/L 98-108 4795089404) CO2 TOTAL (test code 27 mmol/L 23-31 = 7780404898) AGAP (test code = 2-16 8327950062) BUN (test code = 13 mg/dL 7-23 9453681675) GLUCOSE (test code = 106 mg/dL 70-110 2835199630) CREATININE (test code 0.58 mg/dL 0.50-1.04 = 1231432527) CALCIUM (test code = 8.6 mg/dL 8.6-10.6 1153483238) eGFR (test code = mL/min/1.73m2 4875373079) MEDHAT (test code = MEDHAT) Association of [...] urine or abnormalities in imaging tests). [facility] METABOLIC PANEL (NA, K, CL, CO2, GLUCOSE, BUN, CREATININE, CA)2022-04-05 11:08:28 Test Item Value Reference Range Interpretation Comments NA (test code = 137 mmol/L 135-145 4334427582) K (test code = 3.8 mmol/L 3.5-5.0 9853081344) CL (test code = 104 mmol/L 98-108 7804676373) CO2 TOTAL (test code 27 mmol/L 23-31 = 9360390394) AGAP (test code = 2-16 9588036712) BUN (test code = 13 mg/dL 7-23 8595023572) GLUCOSE (test code = 106 mg/dL 70-110 3898252651) CREATININE (test code 0.58 mg/dL 0.50-1.04 = 3177896456) CALCIUM (test code = 8.6 mg/dL 8.6-10.6 3663018393) eGFR (test code = mL/min/1.73m2 0647402726) MEDHAT (test code = MEDHAT) Association of [...] or urine or abnormalities in imaging tests). [facility] with Tusihinubuxb8465-21-43 10:50:28 Test Item Value Reference Range Interpretation [...] RDW-SD (test code = 43.6 fL 39-49.9 43530-5) RDW-CV (test code = 13.6 % 12-15.5 788-0) PLT (test code = See_Comment [Automated 777-3) message] The sy stem which generated this result transmitted reference range : 166 - 358 10*3/ ?L. The reference r mann was not used to interpret this result as normal/abnormal . MPV (test code = 9.9 fL 9.5-12.9 00090-0) NRBC/100 WBC (test See_Comment [Automat ed code = 1517454962) message] The system which generated this result transmitted reference range : 0.0 - 10.0 /100 WBCs. The refer ence range was not u sed to interpret th is result as normal/abnormal . NRBC x10^3 (test code See_Comment [Auto mated = 8928120548) message] The s ystem which generated this result transmitted reference range : 10*3/?L. The reference range was not used to interpret this result as normal/abnormal . GRAN MAT (NEUT) % 65.5 % (test code = 770-8) IMM GRAN % (test code 0.30 % = 4939294255) LYMPH % (test code = 25.3 % 736-9) MONO % (test code = 8.4 % 5905-5) EOS % (test code = 0.0 % 713-8) BASO % (test code = 0.5 % 706-2) GRAN MAT x10^3(ANC) 6.56 10*3/uL 1.88-7.09 (test code = 6419953226) IMM GRAN x10^3 (test 0.03 10*3/uL 0-0.06 code = 4154425954) LYMPH x10^3 (test code 2.53 10*3/uL 1.32-3.29 = 731-0) MONO x10^3 (test code 0.84 10*3/uL 0.33-0.92 = 742-7) EOS x10^3 (test code = 0.03-0.39 L 711-2) BASO x10^3 (test code 0.05 10*3/uL 0.01-0.07 = 704-7) Lab Interpretation Abnormal (test code = 50389-7) [facility] with Klcvyfyamxhy9177-22-20 10:50:28 Test Item Value Reference Range Interpretation Comments WBC (test code = See_Comment [Automated 5790-2) message] The sy stem which generated this result transmitted reference range : 4.30 - 11.10 10*3/?L. The reference range was not used to interpret this result as normal/abnormal . RBC (test code = See_Comment [Automated 419-8) message] The sy stem which generated this [...] RDW-SD (test code = 43.6 fL 39-49.9 54438-7) RDW-CV (test code = 13.6 % 12-15.5 788-0) PLT (test code = See_Comment [Automated 777-3) message] The sy stem which generated this result transmitted reference range : 166 - 358 10*3/ ?L. The reference r mann was not used to interpret this result as normal/abnormal . MPV (test code = 9.9 fL 9.5-12.9 05605-5) NRBC/100 WBC (test See_Comment [Automat ed code = 5311433157) message] The system which generated this result transmitted reference range : 0.0 - 10.0 /100 WBCs. The refer ence range was not u sed to interpret th is result as normal/abnormal . NRBC x10^3 (test code See_Comment [Auto mated = 5958984518) message] The s ystem which generated this result transmitted reference range : 10*3/?L. The reference range was not used to interpret this result as normal/abnormal . GRAN MAT (NEUT) % 65.5 % (test code = 770-8) IMM GRAN % (test code 0.30 % = 5177737532) LYMPH % (test code = 25.3 % 736-9) MONO % (test code = 8.4 % 5905-5) EOS % (test code = 0.0 % 713-8) BASO % (test code = 0.5 % 706-2) GRAN MAT x10^3(ANC) 6.56 10*3/uL 1.88-7.09 (test code = 8861384547) IMM GRAN x10^3 (test 0.03 10*3/uL 0-0.06 code = 5177458984) LYMPH x10^3 (test code 2.53 10*3/uL 1.32-3.29 = 731-0) MONO x10^3 (test code 0.84 10*3/uL 0.33-0.92 = 742-7) EOS x10^3 (test code = 0.03-0.39 L 711-2) BASO x10^3 (test code 0.05 10*3/uL 0.01-0.07 = 704-7) Lab Interpretation Abnormal (test code = 29813-2) [facility] [id number] 01:03:38 Test Item Value Reference Interpretation Comments Range TROPONIN I (test 0.001 ng/mL See_Comment [Automated code = 6895433311) message] The system which generated this result [...] biotin. Lab Interpretation Normal (test code = 45595-5) [facility] [id number] 01:03:38 Test Item Value Reference Interpretation Comments Range TROPONIN I (test 0.001 ng/mL See_Comment [Automated code = 5524318015) message] The system which generated this result [...] biotin. Lab Interpretation Normal (test code = 99092-7) [place] 848572-10-04 01:03:38 Test Item Value Reference Interpretation Comments Range TROPONIN I (test 0.001 ng/mL See_Comment [Automated code = 9581580605) message] The system which generated this result [...] biotin. Lab Interpretation Normal (test code = 08604-0) [facility] [id number] 01:03:38 Test Item Value Reference Interpretation Comments Range TROPONIN I (test 0.001 ng/mL See_Comment [Automated code = 6155072876) message] The system which generated this result [...] biotin. Lab Interpretation Normal (test code = 96621-5) [facility] [id number] 01:03:38 Test Item Value Reference Interpretation Comments Range TROPONIN I (test 0.001 ng/mL See_Comment [Automated code = 2226706712) message] The system which generated this result [...] biotin. Lab Interpretation Normal (test code = 04360-7) [facility] [id number] 01:03:38 Test Item Value Reference Interpretation Comments Range TROPONIN I (test 0.001 ng/mL See_Comment [Automated code = 7644318813) message] The system which generated this result [...] biotin. Lab Interpretation Normal (test code = 15087-0) [facility] [id number] 01:03:38 Test Item Value Reference Interpretation Comments Range TROPONIN I (test 0.001 ng/mL See_Comment [Automated code = 7700790832) message] The system which generated this result [...] biotin. Lab Interpretation Normal (test code = 19827-4) [facility] [id number] 01:03:38 Test Item Value Reference Interpretation Comments Range TROPONIN I (test 0.001 ng/mL See_Comment [Automated code = 4475359633) message] The system which generated this result transmitted reference range : <=0.034. The reference range was not used to interpret this result as normal/abnormal . MEDHAT (test code = Reference (Normal) MEDAHT) Range (defined by the 99th percentile reference [...] biotin. Lab Interpretation Normal (test code = 25910-4) [facility] [id number] 01:03:38 Test Item Value Reference Interpretation Comments Range TROPONIN I (test 0.001 ng/mL See_Comment [Automated code = 6446130021) message] The system which generated this result [...] biotin. Lab Interpretation Normal (test code = 90396-0) [facility] [id number] 01:03:38 Test Item Value Reference Interpretation Comments Range TROPONIN I (test 0.001 ng/mL See_Comment [Automated code = 5414476328) message] The system which generated this result [...] biotin. Lab Interpretation Normal (test code = 18448-3) [facility] [id number] 01:03:38 Test Item Value Reference Interpretation Comments Range TROPONIN I (test 0.001 ng/mL See_Comment [Automated code = 4083254223) message] The system which generated this result [...] biotin. Lab Interpretation Normal (test code = 79483-6) [facility] [id number] 01:03:38 Test Item Value Reference Interpretation Comments Range TROPONIN I (test 0.001 ng/mL See_Comment [Automated code = 1343301170) message] The system which generated this result [...] biotin. Lab Interpretation Normal (test code = 00039-2) [facility] [id number] 01:03:38 Test Item Value Reference Interpretation Comments Range TROPONIN I (test 0.001 ng/mL See_Comment [Automated code = 6441945693) message] The system which generated this result [...] biotin. Lab Interpretation Normal (test code = 33472-8) [facility] [id number] 01:03:38 Test Item Value Reference Interpretation Comments Range TROPONIN I (test 0.001 ng/mL See_Comment [Automated code = 1532711414) message] The system which generated this result [...] biotin. Lab Interpretation Normal (test code = 55819-3) [facility] [id number] 01:03:38 Test Item Value Reference Interpretation Comments Range TROPONIN I (test 0.001 ng/mL See_Comment [Automated code = 9084733654) message] The system which generated this result [...] biotin. Lab Interpretation Normal (test code = 10742-7) [facility] [id number] 01:03:38 Test Item Value Reference Interpretation Comments Range TROPONIN I (test 0.001 ng/mL See_Comment [Automated code = 1294897561) message] The system which generated this result [...] biotin. Lab Interpretation Normal (test code = 18405-4) [facility] [id number] 01:03:38 Test Item Value Reference Interpretation Comments Range TROPONIN I (test 0.001 ng/mL See_Comment [Automated code = 8107456593) message] The system which generated this result [...] biotin. Lab Interpretation Normal (test code = 97167-8) [facility] [id number] 01:03:38 Test Item Value Reference Interpretation Comments Range TROPONIN I (test 0.001 ng/mL See_Comment [Automated code = 5757476141) message] The system which generated this result [...] biotin. Lab Interpretation Normal (test code = 12758-5) [facility] [id number] 01:03:38 Test Item Value Reference Interpretation Comments Range TROPONIN I (test 0.001 ng/mL See_Comment [Automated code = 0217720200) message] The system which generated this result [...] biotin. Lab Interpretation Normal (test code = 21598-9) [facility] [id number] 01:03:38 Test Item Value Reference Interpretation Comments Range TROPONIN I (test 0.001 ng/mL See_Comment [Automated code = 7009315354) message] The system which generated this result [...] biotin. Lab Interpretation Normal (test code = 40159-2) [facility] [id number] 01:03:38 Test Item Value Reference Interpretation Comments Range TROPONIN I (test 0.001 ng/mL See_Comment [Automated code = 5960215938) message] The system which generated this result [...] biotin. Lab Interpretation Normal (test code = 21220-1) [facility] [id number] 01:03:38 Test Item Value Reference Interpretation Comments Range TROPONIN I (test 0.001 ng/mL See_Comment [Automated code = 3577485618) message] The system which generated this result [...] biotin. Lab Interpretation Normal (test code = 97676-1) [facility] [id number] 01:03:38 Test Item Value Reference Interpretation Comments Range TROPONIN I (test 0.001 ng/mL See_Comment [Automated code = 8670290741) message] The system which generated this result [...] biotin. Lab Interpretation Normal (test code = 59425-0) [facility] [id number] 01:03:38 Test Item Value Reference Interpretation Comments Range TROPONIN I (test 0.001 ng/mL See_Comment [Automated code = 6186842792) message] The system which generated this result [...] biotin. Lab Interpretation Normal (test code = 92531-0) [facility] and Screen - ONCE [id number] 21:06:03 Test Item Value Reference Range Interpretation Comments ABO & RH (test code A Positive Performe d at [facility] = 20) Laboratory [facility] [place], [place] [address]Toll Free: [phone] A No. [id number] IAT (test code = Negative Performed a t [facility] 1185) Laboratory [facility] [place], [place] [address]Toll Free: [phone] A No. [id number] [facility] and Screen - ONCE [id number] 21:06:03 Test Item Value Reference Range Interpretation Comments ABO & RH (test code A Positive Performe d at [facility] = 20) Laboratory [facility] [place], [place] [address]Toll Free: [phone] A No. [id number] IAT (test code = Negative Performed a t [facility] 1185) Laboratory [facility] [place], [place] [address]Toll Free: [phone] A No. [id number] [facility] and Screen - ONCE [id number] 21:06:03 Test Item Value Reference Range Interpretation Comments ABO & RH (test code A Positive Performe d at [facility] = 20) Laboratory [facility] [place], [place] [address]Toll Free: [phone] A No. [id number] IAT (test code = Negative Performed a t [facility] 1185) Laboratory [facility] [place], [place] [address]Toll Free: [phone] A No. [id number] [facility] and Screen - ONCE Zyrfxbq1350-88-35 21:06:03 Test Item Value Reference Range Interpretation Comments ABO & RH (test code A Positive Performe d at [facility] = 20) Laboratory [facility] [place], [place] [address]Toll Free: [phone] A No. [id number] IAT (test code = Negative Performed a t [facility] 1185) Laboratory [facility] Blood [address]Toll Free: [phone] A No. [id number] [facility] and Screen - ONCE [id number] 21:06:03 Test Item Value Reference Range Interpretation Comments ABO & RH (test code A Positive Performe d at [facility] = 20) Laboratory [facility] [place], [place] [address]Toll Free: [phone] A No. [id number] IAT (test code = Negative Performed a t [facility] 1185) Laboratory [facility] Blood [place] [address]Toll Free: [phone] A No. [id number] [facility] and Screen - ONCE [id number] 21:06:03 Test Item Value Reference Range Interpretation Comments ABO & RH (test code A Positive Performe d at [facility] = 20) Laboratory [facility] [place] [address]Sdfw Free: [phone] A No. [id number] IAT (test code = Negative Performed a t [facility] 1185) Laboratory [facility] [place] [address]Dxgv Free: [phone] A No. [id number] [facility] and Screen - ONCE Ksvbdgq0772-19-27 21:06:03 Test Item Value Reference Range Interpretation Comments ABO & RH (test code A Positive Performe d at [facility] = 20) Laboratory [facility] [place], [place] [address]Toll Free: [phone] A No. [id number] IAT (test code = Negative Performed a t [facility] 1185) Laboratory [facility] Blood [place] [address]Toll Free: [phone] A No. [id number] [facility] [id number] 21:06:03 Test Item Value Reference Range Interpretation Comments ABO & RH (test code A Positive Performe d at [facility] = 20) Laboratory [facility] Blood [place] [address]Toll Free: [phone] A No. [id number] IAT (test code = Negative Performed a t [facility] 1185) Laboratory [facility] [place], [place] [address]Toll Free: [phone] A No. [id number] [facility] [id number] 21:06:03 Test Item Value Reference Range Interpretation Comments ABO & RH (test code A Positive Performe d at [facility] = 20) Laboratory [facility] [place], [place] [address]Toll Free: [phone] A No. [id number] IAT (test code = Negative Performed a t [facility] 1185) Laboratory [facility] [place] [address]Dtzm Free: [phone] A No. [id number] [facility] [id number] 21:06:03 Test Item Value Reference Range Interpretation Comments ABO & RH (test code A Positive Performe d at [facility] = 20) Laboratory [facility] [place], [place] [address]Toll Free: [phone] A No. [id number] IAT (test code = Negative Performed a t [facility] 1185) Laboratory [facility] Blood [place] [address]Toll Free: [phone] A No. [id number] [facility] and Screen - ONCE Gtzulwd8449-79-44 21:06:03 Test Item Value Reference Range Interpretation Comments ABO & RH (test code A Positive Performe d at [facility] = 20) Laboratory [facility] Blood [place] [address]Toll Free: [phone] A No. [id number] IAT (test code = Negative Performed a t [facility] 1185) Laboratory [facility] Blood [address] [address]Ezkp Free: [phone] A No. [id number] [facility] and Screen - ONCE Rlpzoxj5261-53-81 21:06:03 Test Item Value Reference Range Interpretation Comments ABO & RH (test code A Positive Performe d at [facility] = 20) Laboratory [facility] Blood [place] [address]Toll Free: [phone] A No. [id number] IAT (test code = Negative Performed a t [facility] 1185) Laboratory [facility] Blood [address] [address]Xqti Free: [phone] A No. [id number] [facility] and Screen - ONCE Iuohdra6208-73-42 21:06:03 Test Item Value Reference Range Interpretation Comments ABO & RH (test code A Positive Performe d at [facility] = 20) Laboratory [facility] Blood [address] [address]Kjri Free: [phone] A No. [id number] IAT (test code = Negative Performed a t [facility] 1185) Laboratory [facility] Blood [place] [address]Toll Free: [phone] A No. [id number] [facility] [id number] 21:06:03 Test Item Value Reference Range Interpretation Comments ABO & RH (test code A Positive Performe d at [facility] = 20) Laboratory [facility] [place], [place] [address]Toll Free: [phone] A No. [id number] IAT (test code = Negative Performed a t [facility] 1185) Laboratory [facility] [place], [place] [address]Toll Free: [phone] A No. [id number] [facility] and Screen - ONCE [id number] 21:06:03 Test Item Value Reference Range Interpretation Comments ABO & RH (test code A Positive Performe d at [facility] = 20) Laboratory [facility] Blood [place] [address]Toll Free: [phone] A No. [id number] IAT (test code = Negative Performed a t [facility] 1185) Laboratory [facility] Blood [place] [address]Toll Free: [phone] A No. [id number] [facility] and Screen - ONCE Wnnqnta0155-26-01 21:06:03 Test Item Value Reference Range Interpretation Comments ABO & RH (test code A Positive Performe d at [facility] = 20) Laboratory [facility] [place], [place] [address]Toll Free: [phone] A No. [id number] IAT (test code = Negative Performed a t [facility] 1185) Laboratory [facility] [place], [place] [address]Toll Free: [phone] A No. [id number] [facility] and Screen - ONCE Wrvlsev8840-82-85 21:06:03 Test Item Value Reference Range Interpretation Comments ABO & RH (test code A Positive Performe d at [facility] = 20) Laboratory [facility] [place], [place] [address]Toll Free: [phone] A No. [id number] IAT (test code = Negative Performed a t [facility] 1185) Laboratory [facility] Blood [place] [address]Toll Free: [phone] A No. [id number] [facility] [id number] 21:06:03 Test Item Value Reference Range Interpretation Comments ABO & RH (test code A Positive Performe d at [facility] = 20) Laboratory [facility] Blood [place] [address]Toll Free: [phone] A No. [id number] IAT (test code = Negative Performed a t [facility] 1185) Laboratory [facility] Blood [place] [address]Toll Free: [phone] A No. [id number] [facility] Ptmjsru2698-12-98 21:06:03 Test Item Value Reference Range Interpretation Comments ABO & RH (test code A Positive Performe d at [facility] = 20) Laboratory [facility] Blood [place] [address]Toll Free: [phone] A No. [id number] IAT (test code = Negative Performed a t [facility] 1185) Laboratory [facility] Bank[address] [place] [address]Toll Free: [phone] A No. [id number] [facility] [id number] 21:06:03 Test Item Value Reference Range Interpretation Comments ABO & RH (test code A Positive Performe d at [facility] = 20) Laboratory [facility] [place], [place] [id number] Free: [phone] A No. [id number] IAT (test code = Negative Performed a t [facility] 118[facility]) Laboratory [facility] [place], [place] [address]Toll Free: [phone] A No. [id number] [facility] and Screen - ONCE [id number] 21:06:03 Test Item Value Reference Range Interpretation Comments ABO & RH (test code A Positive Performe d at [facility] = 20) Laboratory [facility] [place], [place] [address]Toll Free: [phone] A No. [id number] IAT (test code = Negative Performed a t [facility] 118[facility]) Laboratory [facility] Blood [place] [address]Toll Free: [phone] A No. [id number] [facility] and Screen - ONCE [id number] 21:06:03 Test Item Value Reference Range Interpretation Comments ABO & RH (test code A Positive Performe d at [facility] = 20) Laboratory [facility] [place], [place] [address]Toll Free: [phone] A No. [id number] IAT (test code = Negative Performed a t [facility] 1185) Laboratory [facility] Blood [place] [address]Toll Free: [phone] A No. [id number] [facility] and Screen - ONCE [id number] 21:06:03 Test Item Value Reference Range Interpretation Comments ABO & RH (test code A Positive Performe d at [facility] = 20) Laboratory [facility] [address] [place] [address]Dieq Free: [phone] A No. [id number] IAT (test code = Negative Performed a t [facility] 1185) Laboratory [facility] [place], [place] [address]Toll Free: [phone] A No. [id number] [facility] [id number] 21:06:03 Test Item Value Reference Range Interpretation Comments ABO & RH (test code A Positive Performe d at [facility] = 20) Laboratory [facility] Blood [place] [address]Toll Free: [phone] A No. [id number] IAT (test code = Negative Performed a t [facility] 1185) Laboratory [facility] Blood [place] [address]Toll Free: [phone] A No. [id number] [facility] Confirmation (Lab Only)2022-04-04 20:58:06 Test Item Value Reference Range Interpretation Comments ABO & RH (test code A Positive Performe d at [facility] = 20) Laboratory [facility] Blood [place] [address]Toll Free: [phone] A No. [id number] [facility] Confirmation (Lab Only)2022-04-04 20:58:06 Test Item Value Reference Range Interpretation Comments ABO & RH (test code A Positive Performe d at [facility] = 20) Laboratory [facility] Blood [place] [address]Toll Free: [phone] A No. [id number] [facility] Confirmation (Lab Only)2022-04-04 20:58:06 Test Item Value Reference Range Interpretation Comments ABO & RH (test code A Positive Performe d at [facility] = 20) Laboratory [facility] Blood [place] [address]Toll Free: [phone] A No. [id number] [facility] Confirmation (Lab Only)2022-04-04 20:58:06 Test Item Value Reference Range Interpretation Comments ABO & RH (test code A Positive Performe d at [facility] = 20) Laboratory [facility] Blood [place] [address]Toll Free: [phone] A No. [id number] [facility] Confirmation (Lab Only)2022-04-04 20:58:06 Test Item Value Reference Range Interpretation Comments ABO & RH (test code A Positive Performe d at [facility] = 20) Laboratory [facility] Blood [place] [address]Toll Free: [phone] A No. [id number] [facility] Confirmation (Lab Only)2022-04-04 20:58:06 Test Item Value Reference Range Interpretation Comments ABO & RH (test code A Positive Performe d at [facility] = 20) Laboratory [facility] Blood [place] [address]Toll Free: [phone] A No. [id number] [facility] Confirmation (Lab Only)2022-04-04 20:58:06 Test Item Value Reference Range Interpretation Comments ABO & RH (test code A Positive Performe d at [facility] = 20) Laboratory [facility] Blood [place] [address]Toll Free: [phone] A No. [id number] [facility] Confirmation (Lab Only)2022-04-04 20:58:06 Test Item Value Reference Range Interpretation Comments ABO & RH (test code A Positive Performe d at [facility] = 20) Laboratory [facility] Blood [place] [address]Toll Free: [phone] A No. [id number] [facility] Confirmation (Lab Only)2022-04-04 20:58:06 Test Item Value Reference Range Interpretation Comments ABO & RH (test code A Positive Performe d at [facility] = 20) Laboratory [facility] [place], [place] [address]Toll Free: [phone] A No. [id number] [facility] Confirmation (Lab Only)2022-04-04 20:58:06 Test Item Value Reference Range Interpretation Comments ABO & RH (test code A Positive Performe d at [facility] = 20) Laboratory [facility] [place], [place] [address]Toll Free: [phone] A No. [id number] [facility] Confirmation (Lab Only)2022-04-04 20:58:06 Test Item Value Reference Range Interpretation Comments ABO & RH (test code A Positive Performe d at [facility] = 20) Laboratory [facility] [place], [place] [address]Toll Free: [phone] A No. [id number] [facility] Confirmation (Lab Only)2022-04-04 20:58:06 Test Item Value Reference Range Interpretation Comments ABO & RH (test code A Positive Performe d at [facility] = 20) Laboratory [facility] Blood [place] [address]Toll Free: [phone] A No. [id number] [facility] Confirmation (Lab Only)2022-04-04 20:58:06 Test Item Value Reference Range Interpretation Comments ABO & RH (test code A Positive Performe d at [facility] = 20) Laboratory [facility] [place], [place] [address]Toll Free: [phone] A No. [id number] [facility] Confirmation (Lab Only)2022-04-04 20:58:06 Test Item Value Reference Range Interpretation Comments ABO & RH (test code A Positive Performe d at [facility] = 20) Laboratory [facility] [place], [place] [address]Toll Free: [phone] A No. [id number] [facility] Confirmation (Lab Only)2022-04-04 20:58:06 Test Item Value Reference Range Interpretation Comments ABO & RH (test code A Positive Performe d at [facility] = 20) Laboratory [facility] [place], [place] [address]Toll Free: [phone] A No. [id number] [facility] Confirmation (Lab Only)2022-04-04 20:58:06 Test Item Value Reference Range Interpretation Comments ABO & RH (test code A Positive Performe d at [facility] = 20) Laboratory [facility] [place], [place] [address]Toll Free: [phone] A No. [id number] [facility] Confirmation (Lab Only)2022-04-04 20:58:06 Test Item Value Reference Range Interpretation Comments ABO & RH (test code A Positive Performe d at [facility] = 20) Laboratory [facility] Blood [place] [address]Toll Free: [phone] A No. [id number] [facility] Confirmation (Lab Only)2022-04-04 20:58:06 Test Item Value Reference Range Interpretation Comments ABO & RH (test code A Positive Performe d at [facility] = 20) Laboratory [facility] Blood [place] [address]Toll Free: [phone] A No. [id number] [facility] Confirmation (Lab Only)2022-04-04 20:58:06 Test Item Value Reference Range Interpretation Comments ABO & RH (test code A Positive Performe d at [facility] = 20) Laboratory [facility] Blood [place] [address]Toll Free: [phone] A No. [id number] [facility] Confirmation (Lab Only)2022-04-04 20:58:06 Test Item Value Reference Range Interpretation Comments ABO & RH (test code A Positive Performe d at [facility] = 20) Laboratory [facility] [place], [place] [address]Toll Free: [phone] A No. [id number] [facility] Confirmation (Lab Only)2022-04-04 20:58:06 Test Item Value Reference Range Interpretation Comments ABO & RH (test code A Positive Performe d at [facility] = 20) Laboratory [facility] [address] [place] [address] Free: [phone] A No. [id number] [facility] Confirmation (Lab Only)2022-04-04 20:58:06 Test Item Value Reference Range Interpretation Comments ABO & RH (test code A Positive Performe d at [facility] = 20) Laboratory [facility] [address] [place], [place] [address]Toll Free: [phone] A No. [id number] [facility] Confirmation (Lab Only)2022-04-04 20:58:06 Test Item Value Reference Range Interpretation Comments ABO & RH (test code A Positive Performe d at [facility] = 20) Laboratory [facility] Blood [address] Free: [phone] A No. [id number] [facility] Confirmation (Lab Only)2022-04-04 20:58:06 Test Item Value Reference Range Interpretation Comments ABO & RH (test code A Positive Performe d at [facility] = 20) Laboratory [facility] Blood [place] [address]Toll Free: [phone] A No. [id number] [facility], [id number] 19:40:46 Test Item Value Reference Range Interpretation Comments PREG SERUM (test code Negative = 4689826260) MEDHAT (test code = MEDHAT) Less than 10 IU/L. ?If low titer or ectopic is suspected, resubmit specimen in 48-72 hours. [facility], [id number] 19:40:46 Test Item Value Reference Range Interpretation Comments PREG SERUM (test code Negative = 1016263872) MEDHAT (test code = MEDHAT) Less than 10 IU/L. ?If low titer or ectopic is suspected, resubmit specimen in 48-72 hours. [facility], [id number] 19:40:46 Test Item Value Reference Range Interpretation Comments PREG SERUM (test code Negative = 8779434813) MEDHAT (test code = MEDHAT) Less than 10 IU/L. ?If low titer or ectopic is suspected, resubmit specimen in 48-72 hours. [facility], [id number] 19:40:46 Test Item Value Reference Range Interpretation Comments PREG SERUM (test code Negative = 1532813547) MEDHAT (test code = MEDHAT) Less than 10 IU/L. ?If low titer or ectopic is suspected, resubmit specimen in 48-72 hours. [facility], [id number] 19:40:46 Test Item Value Reference Range Interpretation Comments PREG SERUM (test code Negative = 3646214915) MEDHAT (test code = MEDHAT) Less than 10 IU/L. ?If low titer or ectopic is suspected, resubmit specimen in 48-72 hours. [facility] [id number] 19:40:46 Test Item Value Reference Range Interpretation Comments PREG SERUM (test code Negative = 4270420904) MEDHAT (test code = MEDHAT) Less than 10 IU/L. ?If low titer or ectopic is suspected, resubmit specimen in 48-72 hours. [facility], [id number] 19:40:46 Test Item Value Reference Range Interpretation Comments PREG SERUM (test code Negative = 3985119467) MEDHAT (test code = MEDHAT) Less than 10 IU/L. ?If low titer or ectopic is suspected, resubmit specimen in 48-72 hours. [facility], [id number] 19:40:46 Test Item Value Reference Range Interpretation Comments PREG SERUM (test code Negative = 8847406614) MEDHAT (test code = MEDHAT) Less than 10 IU/L. ?If low titer or ectopic is suspected, resubmit specimen in 48-72 hours. [facility], [id number] 19:40:46 Test Item Value Reference Range Interpretation Comments PREG SERUM (test code Negative = 8048637406) MEDHAT (test code = MEDHAT) Less than 10 IU/L. ?If low titer or ectopic is suspected, resubmit specimen in 48-72 hours. [facility], [id number] 19:40:46 Test Item Value Reference Range Interpretation Comments PREG SERUM (test code Negative = 1026675120) MEDHAT (test code = MEDHAT) Less than 10 IU/L. ?If low titer or ectopic is suspected, resubmit specimen in 48-72 hours. [facility], [id number] 19:40:46 Test Item Value Reference Range Interpretation Comments PREG SERUM (test code Negative = 5279809987) MEDHAT (test code = MEDHAT) Less than 10 IU/L. ?If low titer or ectopic is suspected, resubmit specimen in 48-72 hours. [facility], [id number] 19:40:46 Test Item Value Reference Range Interpretation Comments PREG SERUM (test code Negative = 8017665020) MEDHAT (test code = MEDHAT) Less than 10 IU/L. ?If low titer or ectopic is suspected, resubmit specimen in 48-72 hours. [facility], [id number] 19:40:46 Test Item Value Reference Range Interpretation Comments PREG SERUM (test code Negative = 6368908729) MEDHTA (test code = MEDHAT) Less than 10 IU/L. ?If low titer or ectopic is suspected, resubmit specimen in 48-72 hours. [facility], [id number] 19:40:46 Test Item Value Reference Range Interpretation Comments PREG SERUM (test code Negative = 5885621495) MEDHAT (test code = MEDHAT) Less than 10 IU/L. ?If low titer or ectopic is suspected, resubmit specimen in 48-72 hours. [facility], [id number] 19:40:46 Test Item Value Reference Range Interpretation Comments PREG SERUM (test code Negative = 2325736072) MEDHAT (test code = MEDHAT) Less than 10 IU/L. ?If low titer or ectopic is suspected, resubmit specimen in 48-72 hours. [facility], [id number] 19:40:46 Test Item Value Reference Range Interpretation Comments PREG SERUM (test code Negative = 6413582612) MEDHAT (test code = MEDHAT) Less than 10 IU/L. ?If low titer or ectopic is suspected, resubmit specimen in 48-72 hours. [facility], [id number] 19:40:46 Test Item Value Reference Range Interpretation Comments PREG SERUM (test code Negative = 6715718979) MEDHAT (test code = MEDHAT) Less than 10 IU/L. ?If low titer or ectopic is suspected, resubmit specimen in 48-72 hours. [facility], [id number] 19:40:46 Test Item Value Reference Range Interpretation Comments PREG SERUM (test code Negative = 5953347866) MEDHAT (test code = MEDHAT) Less than 10 IU/L. ?If low titer or ectopic is suspected, resubmit specimen in 48-72 hours. [facility], [id number] 19:40:46 Test Item Value Reference Range Interpretation Comments PREG SERUM (test code Negative = 4607753601) MEDHAT (test code = MEDHAT) Less than 10 IU/L. ?If low titer or ectopic is suspected, resubmit specimen in 48-72 hours. [facility], [id number] 19:40:46 Test Item Value Reference Range Interpretation Comments PREG SERUM (test code Negative = 2231689564) MEDHAT (test code = MEDHAT) Less than 10 IU/L. ?If low titer or ectopic is suspected, resubmit specimen in 48-72 hours. [facility], [id number] 19:40:46 Test Item Value Reference Range Interpretation Comments PREG SERUM (test code Negative = 7673418421) MEDHAT (test code = MEDHAT) Less than 10 IU/L. ?If low titer or ectopic is suspected, resubmit specimen in 48-72 hours. [facility], [id number] 19:40:46 Test Item Value Reference Range Interpretation Comments PREG SERUM (test code Negative = 0314856658) MEDHAT (test code = MEDHAT) Less than 10 IU/L. ?If low titer or ectopic is suspected, resubmit specimen in 48-72 hours. [facility], [id number] 19:40:46 Test Item Value Reference Range Interpretation Comments PREG SERUM (test code Negative = 1932608016) MEDHAT (test code = MEDHAT) Less than 10 IU/L. ?If low titer or ectopic is suspected, resubmit specimen in 48-72 hours. [facility], [id number] 19:40:46 Test Item Value Reference Range Interpretation Comments PREG SERUM (test code Negative = 4730864294) MEDHAT (test code = MEDHAT) Less than 10 IU/L. ?If low titer or ectopic is suspected, resubmit specimen in 48-72 hours. [facility] WITH [id number] 18:55:21 Test Item Value Reference Range Interpretation [...] RDW-SD (test code = 43.0 fL 39-49.9 29012-5) RDW-CV (test code = 13.2 % 12-15.5 788-0) PLT (test code = See_Comment [Automated 777-3) message] The system which generated this result transmit gómez reference range : 166 - 358 10*3/ ?L. The reference range was not u sed to interpret th is result as normal/abnormal . MPV (test code = 10.8 fL 9.5-12.9 37180-4) NRBC/100 WBC (test See_Comment [Automat ed code = 0735177709) message] The system which generated this result transmit gómez reference range : 0.0 - 10.0 /100 WBCs. The reference range was not used to interpret this result as normal/abnormal . NRBC x10^3 (test code See_Comment [Auto mated = 0722416227) message] The system which generated this result transmit gómez reference range : 10*3/?L. The reference range was not used to interpret this result as normal/abnormal . GRAN MAT (NEUT) % 82.1 % (test code = 770-8) IMM GRAN % (test code 0.60 % = 1940719764) LYMPH % (test code = 12.4 % 736-9) MONO % (test code = 4.3 % 5905-5) EOS % (test code = 0.1 % 713-8) BASO % (test code = 0.5 % 706-2) GRAN MAT x10^3(ANC) 10.62 10*3/uL 1.88-7.09 H (test code = 6421878906) IMM GRAN x10^3 (test 0.08 10*3/uL 0-0.06 H code = 4796389889) LYMPH x10^3 (test code 1.60 10*3/uL 1.32-3.29 = 731-0) MONO x10^3 (test code 0.56 10*3/uL 0.33-0.92 = 742-7) EOS x10^3 (test code = 0.03-0.39 L 711-2) BASO x10^3 (test code 0.06 10*3/uL 0.01-0.07 = 704-7) Lab Interpretation Abnormal (test code = 05740-2) [id number][facility]-04 18:55:21 Test Item Value Reference Range Interpretation Comments NA (test code = 141 mmol/L 135-145 7400221017) K (test code = 4.5 mmol/L 3.5-5 4203706193) CL (test code = 103 mmol/L 98-108 9672184949) CO2 TOTAL (test code = 27 mmol/L 23-31 2055705666) AGAP (test code = 2-16 0742949168) BUN (test code = 14 mg/dL 7-23 1135734554) GLUCOSE (test code = 115 mg/dL 70-110 H 4745338546) CREATININE (test code = 0.62 mg/dL 0.5-1.04 7975311295) TOTAL BILI (test code = 0.7 mg/dL 0.1-1.1 3298549949) CALCIUM (test code = 9.5 mg/dL 8.6-10.6 7986700481) T PROTEIN (test code = 7.3 g/dL 6.3-8.2 4070968686) ALBUMIN (test code = 4.7 g/dL 3.5-5 2334913390) ALK PHOS (test code = 65 U/L 34-122 5621322480) ALTv (test code = 22 U/L 5-35 2-6) AST(SGOT) (test code = 39 U/L 13-40 5187401836) eGFR (test code = mL/min/1.73m2 7836492173) MEDHAT (test code = MEDHAT) Association of [...] tests). Lab Interpretation Abnormal (test code = 82474-5) [facility]21 Test Item Value Reference Range Interpretation Comments LIPASE (test code = 2032440282) 70 U/L 0-220 Lab Interpretation (test code = Normal 72605-3) [facility]55:21 Test Item Value Reference Range Interpretation Comments LIPASE (test code = 5024687610) 70 U/L 0-220 Lab Interpretation (test code = Normal 34148-4) [facility]63734[facility]2022-[facility]-04 18:55:21 Test Item Value Reference Range Interpretation Comments NA (test code = 141 mmol/L 135-145 2909490166) K (test code = 4.5 mmol/L 3.5-5 3196704042) CL (test code = 103 mmol/L 98-108 0406108944) CO2 TOTAL (test code = 27 mmol/L 23-31 9156934666) AGAP (test code = 2-16 2434111964) BUN (test code = 14 mg/dL 7-23 3698949884) GLUCOSE (test code = 115 mg/dL 70-110 H 2401558278) CREATININE (test code = 0.62 mg/dL 0.5-1.04 1266144348) TOTAL BILI (test code = 0.7 mg/dL 0.1-1.2 8195643495) CALCIUM (test code = 9.5 mg/dL 8.6-10.6 1289284132) T PROTEIN (test code = 7.3 g/dL 6.3-8.2 8912456898) ALBUMIN (test code = 4.7 g/dL 3.5-5 9395205099) ALK PHOS (test code = 65 U/L 34-122 5574420238) ALTv (test code = 22 U/L 5-35 1742-6) AST(SGOT) (test code = 39 U/L 13-40 9240056254) eGFR (test code = mL/min/1.73m2 0433792547) MEDHAT (test code = MEDHAT) Association of [...] tests). Lab Interpretation Abnormal (test code = 71008-6) [facility]2022-10-03 18:55:21 Test Item Value Reference Range Interpretation Comments LIPASE (test code = 3545551528) 70 U/L 0-220 Lab Interpretation (test code = Normal 42608-6) [facility]:55:21 Test Item Value Reference Range Interpretation Comments LIPASE (test code = 6109211781) 70 U/L 0-220 Lab Interpretation (test code = Normal 43962-8) [facility]2022-10-03 18:55:21 Test Item Value Reference Range Interpretation Comments LIPASE (test code = 6486849712) 70 U/L 0-220 Lab Interpretation (test code = Normal 31858-1) [place] [address]-10-03 18:55:21 Test Item Value Reference Range Interpretation Comments LIPASE (test code = 7271725870) 70 U/L 0-220 Lab Interpretation (test code = Normal 36946-6) [address]10-03 18:55:21 Test Item Value Reference Range Interpretation Comments LIPASE (test code = 9690067243) 70 U/L 0-220 Lab Interpretation (test code = Normal 33558-9) [address]10-03 18:55:21 Test Item Value Reference Range Interpretation Comments LIPASE (test code = 4617141464) 70 U/L 0-220 Lab Interpretation (test code = Normal 99677-3) [address]10-03 18:55:21 Test Item Value Reference Range Interpretation Comments LIPASE (test code = 6678552364) 70 U/L 0-220 Lab Interpretation (test code = Normal 67810-1) [address]10-03 18:55:21 Test Item Value Reference Range Interpretation Comments LIPASE (test code = 5316771692) 70 U/L 0-220 Lab Interpretation (test code = Normal 60733-0) [address]10-03 18:55:21 Test Item Value Reference Range Interpretation Comments LIPASE (test code = 2922325039) 70 U/L 0-220 Lab Interpretation (test code = Normal 35126-5) [address]10-03 18:55:21 Test Item Value Reference Range Interpretation Comments LIPASE (test code = 4674417926) 70 U/L 0-220 Lab Interpretation (test code = Normal 29569-5) [address]10-03 18:55:21 Test Item Value Reference Range Interpretation Comments LIPASE (test code = 3005001030) 70 U/L 0-220 Lab Interpretation (test code = Normal 84999-4) [address]03 18:55:21 Test Item Value Reference Range Interpretation Comments LIPASE (test code = 7456425395) 70 U/L 0-220 Lab Interpretation (test code = Normal 14891-4) [address]-03 18:55:21 Test Item Value Reference Range Interpretation Comments LIPASE (test code = 1703528473) 70 U/L 0-220 Lab Interpretation (test code = Normal 72082-7) [address]-03 18:55:21 Test Item Value Reference Range Interpretation Comments LIPASE (test code = 5747282635) 70 U/L 0-220 Lab Interpretation (test code = Normal 06390-8) [address]-03 18:55:21 Test Item Value Reference Range Interpretation Comments LIPASE (test code = 5633909960) 70 U/L 0-220 Lab Interpretation (test code = Normal 35680-1) [address]10-03 18:55:21 Test Item Value Reference Range Interpretation Comments LIPASE (test code = 0960858050) 70 U/L 0-220 Lab Interpretation (test code = Normal 01887-3) [address] 18:55:21 Test Item Value Reference Range Interpretation Comments LIPASE (test code = 7038183416) 70 U/L 0-220 Lab Interpretation (test code = Normal 83984-9) [address]03 18:55:21 Test Item Value Reference Range Interpretation Comments LIPASE (test code = 9867427954) 70 U/L 0-220 Lab Interpretation (test code = Normal 94329-1) [address]03 18:55:21 Test Item Value Reference Range Interpretation Comments LIPASE (test code = 0557014059) 70 U/L 0-220 Lab Interpretation (test code = Normal 75040-7) [address]10-03 18:55:21 Test Item Value Reference Range Interpretation Comments LIPASE (test code = 2627852376) 70 U/L 0-220 Lab Interpretation (test code = Normal 36143-2) [address]03 18:55:21 Test Item Value Reference Range Interpretation Comments LIPASE (test code = 2593364025) 70 U/L 0-220 Lab Interpretation (test code = Normal 00109-3) [address]03 18:55:21 Test Item Value Reference Range Interpretation Comments LIPASE (test code = 0213612823) 70 U/L 0-220 Lab Interpretation (test code = Normal 37321-8) [facility] 04:58:46 Test Item Value Reference Range Interpretation Comments NA (test code = 139 mmol/L 135-145 4280247630) K (test code = 5.0 mmol/L 3.5-5 9262955098) CL (test code = 102 mmol/L 98-108 8790280479) CO2 TOTAL (test code 27 mmol/L 23-31 = 8515189140) AGAP (test code = 2-16 4414271550) BUN (test code = 13 mg/dL 7-23 2058140410) GLUCOSE (test code = 104 mg/dL 70-110 9404367627) CREATININE (test code 0.69 mg/dL 0.5-1.04 = 4017478466) TOTAL BILI (test code 0.5 mg/dL 0.1-1.1 = 0277736025) CALCIUM (test code = 9.6 mg/dL 8.6-10.6 8904105226) T PROTEIN (test code 7.2 g/dL 6.3-8.2 = 9201942368) ALBUMIN (test code = 4.6 g/dL 3.5-5 9666495769) ALK PHOS (test code = 60 U/L 34-122 5587667581) ALTv (test code = 15 U/L 5-35 1742-6) AST(SGOT) (test code 26 U/L 13-40 = 2837602736) eGFR (test code = mL/min/1.73m2 1439683606) MEDHAT (test code = MEDHAT) Association of [...] or urine or abnormalities in imaging tests). [facility] Test Item Value Reference Range Interpretation Comments LIPASE (test code = 9307558904) 71 U/L 0-220 Lab Interpretation (test code = Normal 13051-2) [facility] WITH [id number] 04:46:42 Test Item Value Reference Range Interpretation Comments WBC (test code = See_Comment [Automated message] 6690-2) The system [employer] generated this result transmitted ref erence range: 4.30 - 1 1.10 10*3/?L. The re ference range was not u sed to interpret this result as normal/abnor mal. RBC (test code = See_Comment [Automated message] 789-8) The system [employer] generated this result transmitted ref erence range: [...] RDW-SD (test code 42.5 fL 39-49.9 = 15503-2) RDW-CV (test code 13.2 % 12-15.5 = 788-0) PLT (test code = See_Comment [Automated message] 777-3) The system whic h generated this result transmitted ref erence range: 166 - 35 8 10*3/?L. The re ference range was not u sed to interpret this result as normal/abnor mal. MPV (test code = 10.4 fL 9.5-12.9 08269-7) NRBC/100 WBC (test See_Comment [Automat ed message] code = 5931403132) The syste m which generated this result transmitted ref erence range: 0.0 - 10 .0 /100 WBCs. The refer ence range was not u sed to interpret this result as normal/abnor mal. NRBC x10^3 (test See_Comment [Automated message] code = 6740618311) The syste m which generated this result transmitted ref erence range: 10*3/?L. The reference range was not used to interpr et this result as normal/abnormal . GRAN MAT (NEUT) % 69.5 % (test code = 770-8) IMM GRAN % (test 0.40 % code = 7625640432) LYMPH % (test code 23.3 % = 736-9) MONO % (test code 5.3 % = 5905-5) EOS % (test code = 0.7 % 713-8) BASO % (test code 0.8 % = 706-2) GRAN MAT 5.73 10*3/uL 1.88-7.09 x10^3(ANC) (test code = 7458135944) IMM GRAN x10^3 0.03 10*3/uL 0-0.06 (test code = 5157202524) LYMPH x10^3 (test 1.92 10*3/uL 1.32-3.29 code = 731-0) MONO x10^3 (test 0.44 10*3/uL 0.33-0.92 code = 742-7) EOS x10^3 (test 0.06 10*3/uL 0.03-0.39 code = 711-2) BASO x10^3 (test 0.07 10*3/uL 0.01-0.07 code = 704-7) [id number] 04:37:00 Test Item Value Reference Range Interpretation Comments POCT PREG (test code = 1605) negative Lab Interpretation (test code = Normal 53996-7) [facility] [id number] 04:37:00 Test Item Value Reference Range Interpretation Comments POCT PREG (test code = 1605) negative Lab Interpretation (test code = Normal 20550-8) [facility], [id number] 14:05:00 Test Item Value Reference Range Interpretation Comments Coronavirus NAAT, COVD19 SARS results, (test code = including Patient [id number]) Name, or MRN, were Coronavirus NAAT, COVD19 ical-devices/emergenc (test code = r-qre-yeybkggchouvew. KKYMNSG2KAZZ6.1) SARS-CoV-2 NAAT Result: Positive by RT-PCR A (test code = SARS-CoV-2 NAAT Result:) COVID-19 Status: AsymptomaticHCG, Urine Qual (LAB)2021-07-09 14:05:00 Test Item Value Reference Range Interpretation Comments HCG, Urine, Qual (test code = HCGU) Negative Negative Drug Screen,[id number] 14:05:00 Test Item Value Reference Range Interpretation [...] Negative code = UPROP) UA, Urinalysis w [id number] 14:05:00 Test Item Value Reference Range Interpretation Comments Color,Urine (test code = Yellow Yellow UCOL) Clarity,Urine (test code = Clear Clear UCLAR) Ph, Urine (test code = UPH) 8.5 5.0-8.0 H Specific Ramer,Urine 1.020 1.005-1.030 N (test code = USG) [...] Seen A UBACT) Complete Blood Count Auto [id number] 13:20:00 Test Item Value Reference Range Interpretation [...] code = NRBCP) 0 % Comprehensive Metabolic [id number] 13:20:00 Test Item Value Reference Range Interpretation [...] 72 U/L 46-116 N = ALP) Ethanol [id number] 13:20:00 Test Item Value Reference Range Interpretation [...] = HCGU) Negative Negative UA, Urinalysis Rflx Cult/[id number] 00:20:00 Test Item Value Reference Range Interpretation Comments Color,Urine (test code = Yellow Yellow UCOL) Clarity,Urine (test code = Clear Clear UCLAR) PH,Urine (test code = 7.5 5.5-8.5 UPH.XX) Specific Ramer,Urine 1.020 1.005-1.030 N (test code = USG) [...] cells/uL Negative (test code = ULEU) Urine [id number] 00:20:00 Test Item Value Reference Range Interpretation Comments RBC,Urine (test code = URBC.XX) 0-5 /HPF None Seen WBC,Urine (test code = UWBC.XX) 6-10 /HPF None Seen A Squamous Epithelial Cell,Urine 74-200 /HPF None Seen A (test code = USQEPI.XX) Bacteria,Urine (test code = Moderate /HPF None Seen A UBACT) Drug Screen,[id number] 00:20:00 Test Item Value Reference Range Interpretation [...] code = UPROP) Complete Blood Count Auto [id number] 00:09:00 Test Item Value Reference Range Interpretation [...] code = NRBCP) 0 % Comprehensive Metabolic [id number] 00:09:00 Test Item Value Reference Range Interpretation [...] 83 U/L 46-116 N = ALP) Ethanol [id number] 00:09:00 Test Item Value Reference Range Interpretation Comments Ethanol (test code < 3 mg/dL The pharm acological = ETOH) response to blo od alcohol levels mayvary from individual to i ndividual. The fatal ezio ntrationhas been reported t o be >400mg/dL. Coronavirus PCR, COVID19 [id number] 00:08:00 Test Item Value Reference Range Interpretation Comments Coronavirus PCR, For use under Emergency COVID19 Rapid (test Use Authorization (EUA) code = SARSCOV2) only. Coronavirus PCR, Reference Range: COVID19 Rapid (test Negative code = VCHHXMB82.1) SARS-CoV-2 PCR Result: Negative by RT-PCR (test code = SARS-CoV-2 PCR Result:) COVID-19 Status: AsymptomaticCARBAMAZEPHINE (TEGRETOL)2020-09-26 08:42:00 Test Item Value Reference Range Interpretation Comments CARBAMAZPN (test code = 98A) 19.3 ug/mL 4.0-12.0 HH CARBAMAZEPHINE (TEGRETOL)2020-09-26 05:04:00 Test Item Value Reference Range Interpretation Comments CARBAMAZPN (test code = 98A) 20.1 ug/mL 4.0-12.0 HH URINALYSIS WITH [id number] 02:45:00 Test Item Value Reference Range Interpretation [...] code = USPERM) /HPF NONE DRUGS OF [id number] 02:43:00 Test Item Value Reference Range Interpretation [...] clinical and epidemiological data PRO TIME AND [id number] 00:51:00 Test Item Value Reference Range Interpretation [...] Heparin. Order Code is ANTI-XA COMPREHENSIVE METABOLIC [id number] 00:47:00 Test Item Value Reference Range Interpretation [...] as normal/abnormal . GFR 154 See_Comment [Automated CZECH (test mL/min/1.73m\\S\\2 message] The code = GFRAA) [...] to interpret this result as normal/abnormal . [id number] 00:47:00 Test Item Value Reference Range Interpretation Comments ACETAMINPH (test code = 94M) 3.6 ug/mL 10.0-30.0 L CARDIAC [id number] 00:47:00 Test Item Value Reference Range Interpretation [...] interpret th is result as normal/abnormal . [id number] 00:42:00 Test Item Value Reference Range Interpretation Comments SALICYLATE (test code = 94B) <1.7 mg/dL 2.8-20.0 L SERUM [id number] 00:38:00 Test Item Value Reference Range Interpretation [...]
[2022-07-30 16:41] LABS: Urine Blood Negative (Negative); Urine Glucose Negative (Negative); Urine Protein 1+ (Negative); Urine Specific Gravity 1.025 (1.005-1.030); Urine pH 6.5 (5.0-7.0)
[2022-07-30 16:44] LABS: Urine Specific Gravity/Preg 1.025 (1.005-1.030)
[2022-07-30 16:46] LABS: Absolute Lymphocytes (CBC) 1.4 K/uL (0.7-4.9); Hematocrit 41.9 % (36.0-45.0); Lymphocytes % 21.5 % (15.3-44.8); MCV 85.5 fL (80-100)
[2022-07-30 16:54] LABS: Protime INR 1.04; SARS-CoV-2 Antigen Rapid Res Negative (Negative)
[2022-07-30 16:55] LABS: Barbiturates NEGATIVE (NEGATIVE); Benzodiazepines NEGATIVE (NEGATIVE); Cocaine NEGATIVE (NEGATIVE); METHAMPHETAM NEGATIVE (NEGATIVE); Methadone NEGATIVE (NEGATIVE); Opiates NEGATIVE (NEGATIVE); Phencyclidine NEGATIVE (NEGATIVE); THC Cannibis NEGATIVE (NEGATIVE)
[2022-07-30 17:25] LABS: ALT/SGPT 25 U/L (13-56); AST/SGOT 13 U/L (15-37); Alkaline Phosphatase 108 U/L (45-117); BUN Blood Urea Nitrogen 12 mg/dL (7-18); Bicarbonate 29 mmol/L (21-32); Bilirubin Total 0.2 mg/dL (0.2-1.0); Glomerular Filtration Rate 125 ml/min (=/>90); Glucose Level 119 mg/dL (74-106); Potassium 3.8 mmol/L (3.5-5.1); Protein, Total 7.9 g/dL (6.4-8.2); Sodium Level 140 mmol/L (136-145)
[2022-07-30 17:27] LABS: Bilirubin Direct < 0.1 mg/dL (0-0.2)
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
[2022-07-30 20:29] VITALS: O2SAT 100
[2022-07-30 20:30] VITALS: BP 116/81; TEMP 97.7
== END 2022-07-30 19:56 ==
LOC: ER 15:57
DX: R45.851 Suicidal ideations (principal); S80.811A Abrasion, right lower leg, initial encounter; F17.210 Nicotine dependence, cigarettes, uncomplicated; F31.9 Bipolar disorder, unspecified; Z20.822 Contact with and (suspected) exposure to COVID-19
CPT/HCPCS: 85025; 80048; 36415; 81025; 85610; 80076; 85730; 81003; 80307; 87811; G0480 ×3; 99284

== ENCOUNTER 2022-08-29 17:50 | Emergency (ER) | payer OTHER ==
--- OUTSIDE RECORDS SUMMARY | 2022-08-29 18:16 | XMS REPORT | Continuity of Care Document ---
:2000 Author Organization [facility] t Address [address] [facility] [address] [place] [address] Care Team Providers Name Role Phone Pcp, [...] Nolvia Husain MD Attending Clinician Doctor Unassigned, [place] Attending Clinician Unavailable Vignesh Mack MD Attending Clinician Vaccine, [facility] Attending Clinician Unavailable VIGNESH MACK Attending [...] Clinician TIM HOLGUIN Attending Clinician Unavailable Immun[facility], [facility] Attending Clin ician Unavailable CHELSY [...] Number Effective Date Expiration Date Chidi nice [facility] MEDICAID STAR [id number] 2021 00:00:00 [facility] [id number] 2016 [facility] MEDICAID 00:00:00 Problems Condition Condition Condition [...] partial in partial 00:00: g of this [place] remission, remission, 00 note Me dical most [...] [place] disorder[place] disorder[place] 00 [facility] Branch Attention Attention Disease Active 2008-07 Overview: Univers deficit deficit 2-22 [place] ity o f hyperactiv hyperactiv 00:00: g of this [place] ity ity 00 note Medical disorder disorder might be Bran ch (ADHD) (ADHD) different from the original. 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 Allergies, Adverse Reactions, Alerts Allergy Allergy Status Severity Reaction(s) Onset Inactive Treating Comm ents Source Name Type Date Date Clinician No Known DA Active U [facility] 07-15 [place] s 00:00: [facility] 00 are [place] No Known DA Active U [facility] 07-04 [facility] s 00:00: d 00 [facility] No Known DA Active U [facility] 07-09 Allergie 00:00: s 00 No Known DA Active U 2020-07 [facility] 07-25 Allergie 00:00: s 00 Unable DA Active U 2020-07 [facility] 07-25 Assess 00:00: 00 No Known DA Active [facility] Allergie Center s NO KNOWN Drug Active Univers ALLERGIE Class ity of S [facility] Family History Family Member Diagnosis Comments Start Date Stop Date Source Natural brother Psychiatry [facility] Natural father Alcohol abuse Univers ity of [facility] Natural father Substance abuse Unive rsity of [facility] Natural mother Psychiatry [facility] Social History Social Habit Start Date Stop Date Quantity Comments Source History SDOH University o f Alcohol Comment [place] [facility] Branch Alcohol intake 2022-08-23 2022-08-23 Lifetime University of 00:00:00 00:00:[address] [facility] (finding) Branch Exposure to 2022-08-12 2022-08-22 Not sure [facility] SARS-CoV-2 00:00:00 09:43:00 [facility] (event) Branch Tobacco use and 2022-01-17 2022-01-17 Smokeless tobacco Un iversity of exposure 00:00:00 00:00:00 non-user [place] [facility] History SDNV 2020-04-20 2020-04-20 1 University o f Alcohol Frequency 00:00:00 00:00:00 [place] M edical Branch History SDNV 2020-04-20 2020-04-20 99 University o f Alcohol Std 00:00:00 00:00:00 [place] [facility] Drinks Branch History [facility] 2020-04-20 2020-04-20 1 University o f Alcohol Binge 00:00:00 00:00:00 [place] [facility] al Branch Sex Assigned At [birth year] Universit y of 00:00:00 00:00:00 [facility] Smoking Status Start Date Stop Date Source Never smoked tobacco [facility] Medications Ordered Filled Start Stop Current Ordering Indication Dosage Frequency Signature Comments Components Source Medication Medication Date Date Medication? Clinician (SIG) Name Name ARIPiprazol Yes [id number] 15mg Take 1 Univers e 15 mg 2-20 tablet by ity of tablet 00:00: mouth in [place] 00 the Medical morning. Branch lamoTRIgine Yes [id number] 25mg Take 1 Univers 25 mg 2-20 tablet by ity of tablet 00:00: mouth in [place] the Medical morning. Branch ARIPiprazol 0 Yes [id number] 15mg Take 1 Univers e 15 mg 2-20 tablet by ity of tablet 00:00: mouth in [place] the Medical morning. Branch lamoTRIgine 0 Yes [id number] 25mg Take 1 Univers 25 mg 2-20 tablet by ity of tablet 00:00: mouth in [place] the Medical morning. Branch ARIPiprazol 2022-0 Yes [id number] 15mg Take 1 Univers e 15 mg 2-20 tablet by ity of tablet 00:00: mouth in [place] the Medical morning. Branch lamoTRIgine 2022-0 Yes [id number] 25mg Take 1 Univers 25 mg 2-20 tablet by ity of tablet 00:00: mouth in [place] the Medical morning. Branch naltrexone 2022-0 2022- Yes [id number] 50mg Take 1 Univers 50 mg 2-20 05-22 tablet by ity of tablet 00:00: 04:59 mouth in [place] 00 :00 the Medical morning Branch for 90 days. naltrexone 2022-0 2022- Yes [id number] 50mg Take 1 Univers 50 mg 2-20 05-22 tablet by ity of tablet 00:00: 04:59 mouth in [place] 00 :00 the Medical morning Branch for 90 days. naltrexone 2022-0 2022- Yes [id number] 50mg Take 1 Univers 50 mg 2-20 05-22 tablet by ity of tablet 00:00: 04:59 mouth in [place] 00 :00 the Medical morning Branch for 90 days. atomoxetine 2022-0 2022- Yes [id number] 80mg Take 1 Univers 80 mg 2-20 04-22 capsule by ity of capsule 00:00: 04:59 mouth in [place] 00 :00 the Medical morning Branch for 60 days. atomoxetine 2022-0 2022- Yes [id number] 80mg Take 1 Univers 80 mg 2-20 04-22 capsule by ity of capsule 00:00: 04:59 mouth in [place] 00 :00 the Medical morning Branch for 60 days. atomoxetine 2022-0 2022- Yes [id number] 80mg Take 1 Univers 80 mg 2-20 04-22 capsule by ity of capsule 00:00: 04:59 mouth in [place] 00 :00 the Medical morning Branch for 60 days. hydrOXYzine 3-0 Yes [id number] 25mg Take 1 Univers 25 mg 1-23 tablet by ity of tablet 00:00: mouth [place] 00 every 6 Medical (six) Branch hours as needed for Anxiety. hydrOXYzine 2022-0 Yes [id number] 25mg Take 1 Univers 25 mg 1-23 tablet by ity of tablet 00:00: mouth [place] 00 every 6 Medical (six) Branch hours as needed for Anxiety. hydrOXYzine 3-0 Yes [id number] 25mg Take 1 Univers 25 mg 1-23 tablet by ity of tablet 00:00: mouth [place] 00 every 6 Medical (six) Branch hours as needed for Anxiety. hydrOXYzine 2023-0 Yes [id number] 25mg Take 1 Univers 25 mg 1-23 tablet by ity of tablet 00:00: mouth [place] 00 every 6 Medical (six) Branch hours as needed for Anxiety. hydrOXYzine 2023-0 Yes [id number] 25mg Take 1 Univers 25 mg 1-23 tablet by ity of tablet 00:00: mouth [place] 00 every 6 Medical (six) Branch hours as needed for Anxiety. hydrOXYzine 2023-0 Yes [id number] 25mg Take 1 Univers 25 mg 1-23 tablet by ity of tablet 00:00: mouth [place] 00 every 6 Medical (six) Branch hours as needed for Anxiety. hydrOXYzine 3-0 Yes [id number] 25mg Take 1 Univers 25 mg 1-23 tablet by ity of tablet 00:00: mouth [place] 00 every 6 Medical (six) Branch hours as needed for Anxiety. lamoTRIgine 2022-0 Yes [id number] 25mg Take 1 Univers 25 mg 1-11 tablet by ity of tablet 00:00: mouth in [place] 00 the Medical morning. Branch lamoTRIgine 2022-0 Yes [id number] 25mg Take 1 Univers 25 mg 1-11 tablet by ity of tablet 00:00: mouth in [place] 00 the Medical morning. Branch lamoTRIgine 2022-0 Yes [id number] 25mg Take 1 Univers 25 mg 1-11 tablet by ity of tablet 00:00: mouth in [place] 00 the Medical morning. Branch lamoTRIgine 2022-0 Yes [id number] 25mg Take 1 Univers 25 mg 1-11 tablet by ity of tablet 00:00: mouth in [place] 00 the Medical morning. Branch lamoTRIgine 2022-0 Yes [id number] 25mg Take 1 Univers 25 mg 1-11 tablet by ity of tablet 00:00: mouth in [place] 00 the Medical morning. Branch lamoTRIgine 2022-0 2022- No [id number] 25mg Take 1 Univers 25 mg 1-11 02-20 tablet by ity of tablet 00:00: 00:00 mouth in [place] 00 :00 the Medical morning. Branch lamoTRIgine 2022-0 2022- No [id number] 25mg Take 1 Univers 25 mg 1-11 02-20 tablet by ity of tablet 00:00: 00:00 mouth in [place] 00 :00 the Medical morning. Branch lamoTRIgine 2022-0 2022- No [id number] 25mg Take 1 Univers 25 mg 1-11 02-20 tablet by ity of tablet 00:00: 00:00 mouth in [place] 00 :00 the Medical morning. Branch ARIPiprazol 2022-0 2022- Yes [id number] 15mg Take 1 Univers e 15 mg 1-10 04-11 tablet by ity of tablet 00:00: 04:59 mouth in [place] 00 :00 the Medical morning Branch for 90 days. ARIPiprazol 2022- Yes [id number] 15mg Take 1 Univers e 15 mg 1-10 04-11 tablet by ity of tablet 00:00: 04:59 mouth in [place] 00 :00 the Medical morning Branch for 90 days. ARIPiprazol 2022- Yes [id number] 15mg Take 1 Univers e 15 mg 1-10 04-11 tablet by ity of tablet 00:00: 04:59 mouth in [place] 00 :00 the [facility] morning Branch for 90 days. ARIPiprazol 2022- Yes [id number] 15mg Take 1 Univers e 15 mg 1-10 04-11 tablet by ity of tablet 00:00: 04:59 mouth in [place] 00 :00 the [facility] morning [place] for 90 days. ARIPiprazol 2022- Yes [id number] 15mg Take 1 Univers e 15 mg 1-10 04-11 tablet by ity of tablet 00:00: 04:59 mouth in [place] 00 :00 the [facility] morning [place] for 90 days. ARIPiprazol 2022- Yes [id number] 15mg Take 1 Univers e 15 mg 1-10 04-11 tablet by ity of tablet 00:00: 04:59 mouth in [place] 00 :00 the [facility] morning [place] for 90 days. ARIPiprazol 2022- No [id number] 15mg Take 1 Univers e 15 mg 1-10 02-20 tablet by ity of tablet 00:00: 00:00 mouth in [place] 00 :00 the [facility] morning [place] for 90 days. ARIPiprazol 2022- No [id number] 15mg Take 1 Univers e 15 mg 1-10 02-20 tablet by ity of tablet 00:00: 00:00 mouth in [place] 00 :00 the [facility] morning [place] for 90 days. ARIPiprazol 2022- No [id number] 15mg Take 1 Univers e 15 mg 1-10 02-20 tablet by ity of tablet 00:00: 00:00 mouth in [place] 00 :00 the [facility] morning [place] for 90 days. ARIPiprazol 2021-07- No [id number] 300mg Univers e (ABILIFY 2-15 12-15 ity of MAINTENA) 17:45: 16:48 [place] injection 00 :00 Medical SSRR 300 mg Branch ARIPiprazol 2021-07- No [id number] 300mg Univers e (ABILIFY 2-15 12-15 ity of MAINTENA) 17:45: 16:48 [place] injection 00 :00 Medical SSRR 300 mg Branch ARIPiprazol 2021-07- No [id number] 300mg Univers e (ABILIFY 2-15 12-15 [facility] 17:45: 16:48 [place] injection 00 :00 Medical SSRR 300 mg Branch ARIPiprazol 2021-07- No [id number] 300mg Univers e (ABILIFY 2-15 12-15 [facility] 17:45: 16:48 [place] injection 00 :00 Medical SSRR 300 mg Branch hydrOXYzine 2021-07 Yes [id number] 25mg Take 1 Univers 25 mg 2-12 tablet by ity of tablet 00:00: mouth [place] 00 every 6 Medical (six) Branch hours as needed for Anxiety. lamoTRIgine 2021-07 Yes [id number] 25mg Take 1 Univers 25 mg 2-12 tablet by ity of tablet 00:00: mouth in [place] 00 the Medical morning. Branch naltrexone 2021-07 Yes [id number] 50mg Take 1 Uni vers 50 mg 2-12 tablet by ity of tablet 00:00: mouth in [place] 00 the Medical morning. Branch hydrOXYzine 2021-07 Yes [id number] 25mg Take 1 Univers 25 mg 2-12 tablet by ity of tablet 00:00: mouth [place] 00 every 6 Medical (six) Branch hours as needed for Anxiety. lamoTRIgine 2021-07 Yes [id number] 25mg Take 1 Univers 25 mg 2-12 tablet by ity of tablet 00:00: mouth in [place] 00 the Medical morning. Branch naltrexone 2021-07 Yes [id number] 50mg Take 1 Uni vers 50 mg 2-12 tablet by ity of tablet 00:00: mouth in [place] 00 the Medical morning. Branch hydrOXYzine 2021-07 Yes [id number] 25mg Take 1 Univers 25 mg 2-12 tablet by ity of tablet 00:00: mouth [place] 00 every 6 Medical (six) Branch hours as needed for Anxiety. lamoTRIgine 2021-07 Yes [id number] 25mg Take 1 Univers 25 mg 2-12 tablet by ity of tablet 00:00: mouth in [place] 00 the Medical morning. Branch naltrexone 2021- Yes [id number] 50mg Take 1 Uni vers 50 mg 2-12 tablet by ity of tablet 00:00: mouth in [place] 00 the Medical morning. Branch hydrOXYzine 2021- Yes [id number] 25mg Take 1 Univers 25 mg 2-12 tablet by ity of tablet 00:00: mouth [place] 00 every 6 Medical (six) Branch hours as needed for Anxiety. lamoTRIgine 2021-07 Yes [id number] 25mg Take 1 Univers 25 mg 2-12 tablet by ity of tablet 00:00: mouth in [place] 00 the Medical morning. Branch naltrexone 2021- Yes [id number] 50mg Take 1 Uni vers 50 mg 2-12 tablet by ity of tablet 00:00: mouth in [place] 00 the Medical morning. Branch hydrOXYzine 2021- Yes [id number] 25mg Take 1 Univers 25 mg 2-12 tablet by ity of tablet 00:00: mouth [place] 00 every 6 Medical (six) Branch hours as needed for Anxiety. lamoTRIgine 2021- Yes [id number] 25mg Take 1 Univers 25 mg 2-12 tablet by ity of tablet 00:00: mouth in [place] 00 the Medical morning. Branch naltrexone 2021- Yes [id number] 50mg Take 1 Uni vers 50 mg 2-12 tablet by ity of tablet 00:00: mouth in [place] 00 the Medical morning. Branch hydrOXYzine 2021- Yes [id number] 25mg Take 1 Univers 25 mg 2-12 tablet by ity of tablet 00:00: mouth [place] 00 every 6 Medical (six) Branch hours as needed for Anxiety. lamoTRIgine 2021- Yes [id number] 25mg Take 1 Univers 25 mg 2-12 tablet by ity of tablet 00:00: mouth in [place] 00 the Medical morning. Branch naltrexone 2021- Yes [id number] 50mg Take 1 Uni vers 50 mg 2-12 tablet by ity of tablet 00:00: mouth in [place] 00 the Medical morning. Branch hydrOXYzine 2021- Yes [id number] 25mg Take 1 Univers 25 mg 2-12 tablet by ity of tablet 00:00: mouth [place] 00 every 6 Medical (six) Branch hours as needed for Anxiety. lamoTRIgine 2021-07 Yes [id number] 25mg Take 1 Univers 25 mg 2-12 tablet by ity of tablet 00:00: mouth in [place] 00 the Medical morning. Branch naltrexone 2021-07 Yes [id number] 50mg Take 1 Uni vers 50 mg 2-12 tablet by ity of tablet 00:00: mouth in [place] 00 the Medical morning. Branch hydrOXYzine 2021-07 Yes [id number] 25mg Take 1 Univers 25 mg 2-12 tablet by ity of tablet 00:00: mouth [place] 00 every 6 Medical (six) Branch hours as needed for Anxiety. lamoTRIgine 2021-07 Yes [id number] 25mg Take 1 Univers 25 mg 2-12 tablet by ity of tablet 00:00: mouth in [place] 00 the Medical morning. Branch naltrexone 2021-07 Yes [id number] 50mg Take 1 Uni vers 50 mg 2-12 tablet by ity of tablet 00:00: mouth in [place] 00 the Medical morning. Branch hydrOXYzine 2021-07 Yes [id number] 25mg Take 1 Univers 25 mg 2-12 tablet by ity of tablet 00:00: mouth [place] 00 every 6 Medical (six) Branch hours as needed for Anxiety. lamoTRIgine 2021-07 Yes [id number] 25mg Take 1 Univers 25 mg 2-12 tablet by ity of tablet 00:00: mouth in [place] 00 the Medical morning. Branch naltrexone 2021-07 Yes [id number] 50mg Take 1 Uni vers 50 mg 2-12 tablet by ity of tablet 00:00: mouth in [place] 00 the Medical morning. Branch hydrOXYzine 2021-07 Yes [id number] 25mg Take 1 Univers 25 mg 2-12 tablet by ity of tablet 00:00: mouth [place] 00 every 6 Medical (six) Branch hours as needed for Anxiety. naltrexone 2021- Yes [id number] 50mg Take 1 Uni vers 50 mg 2-12 tablet by ity of tablet 00:00: mouth in [place] 00 the Medical morning. Branch naltrexone 2021-07 Yes [id number] 50mg Take 1 Uni vers 50 mg 2-12 tablet by ity of tablet 00:00: mouth in [place] 00 the Medical morning. Branch naltrexone 2021- Yes [id number] 50mg Take 1 Uni vers 50 mg 2-12 tablet by ity of tablet 00:00: mouth in [place] 00 the Medical morning. Branch naltrexone 2021-07 Yes [id number] 50mg Take 1 Uni vers 50 mg 2-12 tablet by ity of tablet 00:00: mouth in [place] 00 the Medical morning. Branch naltrexone 2021-07 Yes [id number] 50mg Take 1 Uni vers 50 mg 2-12 tablet by ity of tablet 00:00: mouth in [place] 00 the Medical morning. Branch atomoxetine 2021-07- Yes [id number] 60mg Take 1 Univers (STRATTERA) 08-14 capsule by i ty of 60 mg 00:00: 04:59 mouth in [place] capsule 00 :00 the Medical morning Branch for 90 days. atomoxetine 2021-07- Yes [id number] 60mg Take 1 Univers (STRATTERA) 08-14 capsule by i ty of 60 mg 00:00: 04:59 mouth in [place] capsule 00 :00 the Medical morning Branch for 90 days. atomoxetine 2021-07- Yes [id number] 60mg Take 1 Univers (STRATTERA) 08-14 capsule by i ty of 60 mg 00:00: 04:59 mouth in [place] capsule 00 :00 the Medical morning Branch for 90 days. atomoxetine 2021-07- Yes [id number] 60mg Take 1 Univers (STRATTERA) 08-14 capsule by i ty of 60 mg 00:00: 04:59 mouth in [place] capsule 00 :00 the Medical morning Branch for 90 days. atomoxetine 2021-07- Yes [id number] 60mg Take 1 Univers (STRATTERA) 08-14 capsule by i ty of 60 mg 00:00: 04:59 mouth in [place] capsule 00 :00 the Medical morning Branch for 90 days. atomoxetine 2021-07- Yes [id number] 60mg Take 1 Univers (STRATTERA) 08-14 capsule by i ty of 60 mg 00:00: 04:59 mouth in [place] capsule 00 :00 the Medical morning Branch for 90 days. atomoxetine 2021-07- Yes [id number] 60mg Take 1 Univers (STRATTERA) 08-14 capsule by i ty of 60 mg 00:00: 04:59 mouth in [place] capsule 00 :00 the Medical morning Branch for 90 days. atomoxetine 2021-07- Yes [id number] 60mg Take 1 Univers (STRATTERA) 08-14 capsule by i ty of 60 mg 00:00: 04:59 mouth in [place] capsule 00 :00 the Medical morning Branch for 90 days. atomoxetine 2021-07- Yes [id number] 60mg Take 1 Univers (STRATTERA) 08-14 capsule by i ty of 60 mg 00:00: 04:59 mouth in [place] capsule 00 :00 the Medical morning Branch for 90 days. atomoxetine 2021-07- Yes [id number] 60mg Take 1 Univers (STRATTERA) 08-14 capsule by i ty of 60 mg 00:00: 04:59 mouth in [place] capsule 00 :00 the Medical morning Branch for 90 days. atomoxetine 2021-07- Yes [id number] 60mg Take 1 Univers (STRATTERA) 08-14 capsule by i ty of 60 mg 00:00: 04:59 mouth in [place] capsule 00 :00 the Medical morning Branch for 90 days. atomoxetine 2021-07- Yes [id number] 60mg Take 1 Univers (STRATTERA) 08-14 capsule by i ty of 60 mg 00:00: 04:59 mouth in [place] capsule 00 :00 the Medical morning Branch for 90 days. atomoxetine 2021-07- Yes [id number] 60mg Take 1 Univers (STRATTERA) 08-14 capsule by i ty of 60 mg 00:00: 04:59 mouth in [place] capsule 00 :00 the Medical morning Branch for 90 days. atomoxetine 2021-07- Yes [id number] 60mg Take 1 Univers (STRATTERA) 08-14 capsule by i ty of 60 mg 00:00: 04:59 mouth in [place] capsule 00 :00 the Medical morning Branch for 90 days. atomoxetine 2021-07- No [id number] 60mg Take 1 Univers (STRATTERA) 08-14 capsule by i ty of 60 mg 00:00: 00:00 mouth in [place] capsule 00 :00 the Medical morning Branch for 90 days. naltrexone 2021-07- No [id number] 50mg Take 1 Un [place] 50 mg 2-12 02-20 tablet by ity of tablet 00:00: 00:00 mouth in [place] 00 :00 the Medical morning. Branch atomoxetine 2021-07- No [id number] 60mg Take 1 Univers (STRATTERA) 2-06 03-20 capsule by i ty of 60 mg 00:00: 00:00 mouth in [place] capsule 00 :00 the Medical morning Branch for 90 days. naltrexone 2021-07- No [id number] 50mg Take 1 Un [place] 50 mg 2-06 03-20 tablet by ity of tablet 00:00: 00:00 mouth in [place] 00 :00 the Medical morning. Branch atomoxetine 2021-07- No [id number] 60mg Take 1 Univers (STRATTERA) 2-06 03-20 capsule by i ty of 60 mg 00:00: 00:00 mouth in [place] capsule 00 :00 the Medical morning Branch for 90 days. naltrexone 2021-07- No [id number] 50mg Take 1 Un [place] 50 mg 2-06 03-20 tablet by ity of tablet 00:00: 00:00 mouth in [place] 00 :00 the Medical morning. Branch hydrOXYzine 2021-07- No [id number] 25mg Take 1 Univers 25 mg 2-07-25 tablet by ity of tablet 00:00: 00:00 mouth [place] 00 :00 every 6 Medical (six) Branch hours as needed for Anxiety. hydrOXYzine 2021-07- No [id number] 25mg Take 1 Univers 25 mg 2-07-25 tablet by ity of tablet 00:00: 00:00 mouth [place] 00 :00 every 6 Medical (six) Branch hours as needed for Anxiety. hydrOXYzine 2021-07- No [id number] 25mg Take 1 Univers 25 mg 2-06 02- tablet by ity of tablet 00:00: 00:00 mouth [place] 00 :00 every 6 Medical (six) Branch hours as needed for Anxiety. hydrOXYzine 2021-07- No [id number] 25mg Take 1 Univers 25 mg 2-06 02- tablet by ity of tablet 00:00: 00:00 mouth [place] 00 :00 every 6 Medical (six) Branch hours as needed for Anxiety. hydrOXYzine 2021-07- No [id number] 25mg Take 1 Univers 25 mg 2-07-25 tablet by ity of tablet 00:00: 00:00 mouth [place] 00 :00 every 6 Medical (six) Branch hours as needed for Anxiety. hydrOXYzine 2021-07- No [id number] 25mg Take 1 Univers 25 mg 2-07-25 tablet by ity of tablet 00:00: 00:00 mouth [place] 00 :00 every 6 Medical (six) Branch hours as needed for Anxiety. hydrOXYzine 2021-07- No [id number] 25mg Take 1 Univers 25 mg 2-07-25 tablet by ity of tablet 00:00: 00:00 mouth [place] 00 :00 every 6 Medical (six) Branch hours as needed for Anxiety. lamoTRIgine 2021-07- No [id number] 25mg Take 1 Univers 25 mg 2-06 02- tablet by ity of tablet 00:00: 00:00 mouth in [place] 00 :00 the Medical morning. [place] lamoTRIgine 2021-07- No [id number] 25mg Take 1 Univers 25 mg 2-06 02- tablet by ity of tablet 00:00: 00:00 mouth in [place] 00 :00 the Medical morning. [place] lamoTRIgine 2021-07- No [id number] 25mg Take 1 Univers 25 mg 2-06 02-10 tablet by ity of tablet 00:00: 00:00 mouth in [place] 00 :00 the Medical morning. [place] lamoTRIgine 2021-07- No [id number] 25mg Take 1 Univers 25 mg 2-12 -10 tablet by ity of tablet 00:00: 00:00 mouth in [place] 00 :00 the Medical morning. [place] lamoTRIgine 2021-07- No [id number] 25mg Take 1 Univers 25 mg 2-12 -10 tablet by ity of tablet 00:00: 00:00 mouth in [place] 00 :00 the Medical morning. [place] hydrOXYzine 2021-07- No 25mg 25 mg, Uni vers (ATARAX) -30 -30 Oral, ity of tablet 25 05:00: 05:14 ONCE, 1 [place] mg 00 :00 dose, On Medical Tue Branch 05/31/22 at 2300, [place] hydrOXYzine 2021-07 Yes [id number] 25mg Take 1 Univers 25 mg 1-29 tablet by ity of tablet 00:00: mouth [place] 00 every 6 Medical (six) Branch hours as needed for Anxiety. hydrOXYzine 2021-07- No [id number] 25mg Take 1 Univers 25 mg 1-29 12-12 tablet by ity of tablet 00:00: 00:00 mouth [place] 00 :00 every 6 Medical (six) Branch hours as needed for Anxiety. hydrOXYzine 2021-07- No [id number] 25mg Take 1 Univers 25 mg 1-29 12-12 tablet by ity of tablet 00:00: 00:00 mouth [place] 00 :00 every 6 Medical (six) Branch hours as needed for Anxiety. hydrOXYzine 2021-07- No [id number] 25mg Take 1 Univers 25 mg 1-29 12-12 tablet by ity of tablet 00:00: 00:00 mouth [place] 00 :00 every 6 Medical (six) Branch hours as needed for Anxiety. hydrOXYzine 2021-07- No [id number] 25mg Take 1 Univers 25 mg 1-29 12-12 tablet by ity of tablet 00:00: 00:00 mouth [place] 00 :00 every 6 Medical (six) Branch hours as needed for Anxiety. hydrOXYzine 2021-07- No [id number] 25mg Take 1 Univers 25 mg 1-29 12-12 tablet by ity of tablet 00:00: 00:00 mouth [place] 00 :00 every 6 Medical (six) Branch hours as needed for Anxiety. ARIPiprazol 2021-07- No [id number] 300mg Univers e (ABILIFY 07-19-17 ity of [place]TENA) 17:00: 16:17 [place] injection 00 :00 Medical SSRR 300 mg Branch ARIPiprazol 2021-07- No [id number] 300mg Univers e (ABILIFY 07-19-17 ity of [place]TE[place]) 17:00: 16:17 [place] injection 00 :00 Medical SSRR 300 mg Branch ARIPiprazol 2021-07- No [id number] 300mg Univers e (ABILIFY 07-19-17 ity of [place]TE[place]) 17:00: 16:17 [place] injection 00 :00 Medical SSRR 300 mg Branch ARIPiprazol 2021-07- No [id number] 300mg Univers e (ABILIFY -17 11-17 ity of [place]TE[place]) 17:00: 16:17 [place] injection 00 :00 Medical SSRR 300 mg Branch ARIPiprazol 2021-07- No [id number] 300mg Univers e (ABILIFY -17 11-17 ity of [place]TE[place]) 17:00: 16:17 [place] injection 00 :00 Medical SSRR 300 mg Branch [facility]-07 Yes Univers [place] 1-15 ity of 300 mg sers 00:00: [place] [facility] 2021-07 Yes Univers MA[place] 1-15 ity of 300 mg sers 00:00: [place] [facility] 2021-07 Yes Univers [place] 1-15 ity of 300 mg sers 00:00: [place] [facility] 2021-07 Yes Univers [place] 1-15 ity of 300 mg sers 00:00: [place] [facility] 2021-07 Yes Univers [place] 1-15 ity of 300 mg sers 00:00: [place] [facility] 2021-07 Yes Univers [place] 1-15 ity of 300 mg sers 00:00: [place] [facility] 2021-07 Yes Univers [place] 1-15 ity of 300 mg sers 00:00: [place] [facility] 2021-07 Yes [facility] MAINTENA 1-15 ity of 300 mg sers 00:00: [place] [facility] 2021-07 Yes [facility] MAINTENA 1-15 ity of 300 mg sers 00:00: [place] [facility] 2021-07- No [facility] MAINTENA 1-15 01-10 ity of 300 mg sers 00:00: 00:00 [place] 00 :00 Medical Branch ABILIY 2021-07- No [facility] MAINTENA 1-15 01-10 ity of 300 mg sers 00:00: 00:00 [place] 00 :00 Medical Branch ABILIFY 2021-07- No [facility] MAINTENA 1-15 01-10 ity [...] 00 :00 Medical Branch atomoxetine 2021- Yes [id number] 40mg Take 1 [facility] 40 mg 0-31 capsule by ity of capsule 00:00: mouth in [place] the Medical morning. Branch lamoTRIgine 2021-07 Yes [id number] 25mg Take 1 [facility] 25 mg 0-31 tablet by ity of tablet 00:00: mouth in [place] the Medical morning. Branch atomoxetine 2021-07 Yes [id number] 40mg Take 1 [facility] 40 mg 0-31 capsule by ity of capsule 00:00: mouth in [place] the Medical morning. Branch lamoTRIgine 2021-07 Yes [id number] 25mg Take 1 [facility] 25 mg 0-31 tablet by ity of tablet 00:00: mouth in [place] the Medical morning. Branch atomoxetine 2021-07 Yes [id number] 40mg Take 1 [facility] 40 mg 0-31 capsule by ity of capsule 00:00: mouth in [place] the Medical morning. Branch lamoTRIgine 2021-07 Yes [id number] 25mg Take 1 [facility] 25 mg 0-31 tablet by ity of tablet 00:00: mouth in [place] the Medical morning. Branch atomoxetine 2021-07 Yes [id number] 40mg Take 1 [facility] 40 mg 0-31 capsule by ity of capsule 00:00: mouth in [place] the Medical morning. Branch lamoTRIgine 2021- Yes [id number] 25mg Take 1 [facility] 25 mg 0-31 tablet by ity of tablet 00:00: mouth in [place] the Medical morning. Branch atomoxetine 2021- Yes [id number] 40mg Take 1 [facility] 40 mg 0-31 capsule by ity of capsule 00:00: mouth in [place] the Medical morning. Branch lamoTRIgine 2021 Yes [id number] 25mg Take 1 [facility] 25 mg 0-31 tablet by ity of tablet 00:00: mouth in [place] 00 the Medical morning. Branch atomoxetine 2021-07 Yes [id number] 40mg Take 1 [facility] 40 mg 0-31 capsule by ity of capsule 00:00: mouth in [place] 00 the Medical morning. Branch lamoTRIgine 2021-07 Yes [id number] 25mg Take 1 [facility] 25 mg 0-31 tablet by ity of tablet 00:00: mouth in [place] the Medical morning. Branch atomoxetine 2021-07 Yes [id number] 40mg Take 1 [facility] 40 mg 0-31 capsule by ity of capsule 00:00: mouth in [place] 00 the Medical morning. Branch lamoTRIgine 2021-07 Yes [id number] 25mg Take 1 [facility] 25 mg 0-31 tablet by ity of tablet 00:00: mouth in [place] the Medical morning. Branch atomoxetine 2021-07 Yes [id number] 40mg Take 1 [facility] 40 mg 0-31 capsule by ity of capsule 00:00: mouth in [place] the Medical morning. Branch lamoTRIgine 2021-07 Yes [id number] 25mg Take 1 [facility] 25 mg 0-31 tablet by ity of tablet 00:00: mouth in [place] the Medical morning. Branch atomoxetine 2021-07 Yes [id number] 40mg Take 1 [facility] 40 mg 0-31 capsule by ity of capsule 00:00: mouth in [place] the Medical morning. Branch lamoTRIgine 2021-07 Yes [id number] 25mg Take 1 [facility] 25 mg 0-31 tablet by ity of tablet 00:00: mouth in [place] 00 the Medical morning. Branch naltrexone 2021-07- No [id number] 50mg Take 1 [facility] 50 mg 0-31 01-30 tablet by ity of tablet 00:00: 05:59 mouth in [place] 00 :00 the Medical morning Branch for 90 days. naltrexone 2021-07- No [id number] 50mg Take 1 [facility] 50 mg 0-31 01-30 tablet by ity of tablet 00:00: 05:59 mouth in [place] 00 :00 the Medical morning Branch for 90 days. naltrexone 2021-07- No [id number] 50mg Take 1 [facility] 50 mg 0-31 01-30 tablet by ity of tablet 00:00: 05:59 mouth in [place] 00 :00 the Medical morning Branch for 90 days. naltrexone 2021-07- No [id number] 50mg Take 1 [facility] 50 mg 0-31 01-30 tablet by ity of tablet 00:00: 05:59 mouth in [place] 00 :00 the Medical morning Branch for 90 days. naltrexone 2021-07- No [id number] 50mg Take 1 [facility] 50 mg 0-31 01-30 tablet by ity of tablet 00:00: 05:59 mouth in [place] 00 :00 the Medical morning Branch for 90 days. naltrexone 2021-07- No [id number] 50mg Take 1 [facility] 50 mg 0-31 01-30 tablet by ity of tablet 00:00: 05:59 mouth in [place] 00 :00 the [facility] morning Branch for 90 days. naltrexone 2021-07- No [id number] 50mg Take 1 [facility] 50 mg 0-31 01-30 tablet by ity of tablet 00:00: 05:59 mouth in [place] 00 :00 the [facility] morning Branch for 90 days. naltrexone 2021-07- No [id number] 50mg Take 1 [facility] 50 mg 0-31 01-30 tablet by ity of tablet 00:00: 05:59 mouth in [place] 00 :00 the [facility] morning Branch for 90 days. naltrexone 2021-07- No [id number] 50mg Take 1 [facility] 50 mg 0-31 01-30 tablet by ity of tablet 00:00: 05:59 mouth in [place] 00 :00 the [facility] morning Branch for 90 days. naltrexone 2021-07- No [id number] 50mg Take 1 [facility] 50 mg 0-31 12-12 tablet by ity of tablet 00:00: 00:00 mouth in [place] 00 :00 the [facility] morning Branch for 90 days. atomoxetine 2021-07- No [id number] 40mg Take 1 [facility] 40 mg 0-31 12-12 capsule by ity of capsule 00:00: 00:00 mouth in [place] 00 :00 the Medical morning. Branch lamoTRIgine 2021-07- No [id number] 25mg Take 1 [facility] 25 mg 0-31 12-12 tablet by ity of tablet 00:00: 00:00 mouth in [place] 00 :00 the Medical morning. Branch naltrexone 2021-07- No [id number] 50mg Take 1 [facility] 50 mg 0-31 12-12 tablet by ity of tablet 00:00: 00:00 mouth in [place] 00 :00 the Medical morning Branch for 90 days. atomoxetine 2021-07- No [id number] 40mg Take 1 [facility] 40 mg 0-31 12-12 capsule by ity of capsule 00:00: 00:00 mouth in [place] 00 :00 the Medical morning. Branch lamoTRIgine 2021-07- No [id number] 25mg Take 1 [facility] 25 mg 0-31 12-12 tablet by ity of tablet 00:00: 00:00 mouth in [place] 00 :00 the Medical morning. Branch naltrexone 2021-07- No [id number] 50mg Take 1 [facility] 50 mg 0-31 12-12 tablet by ity of tablet 00:00: 00:00 mouth in [place] 00 :00 the Medical morning Branch for 90 days. atomoxetine 2021-07- No [id number] 40mg Take 1 [facility] 40 mg 0-31 12-12 capsule by ity of capsule 00:00: 00:00 mouth in [place] 00 :00 the Medical morning. Branch lamoTRIgine 2021-07- No [id number] 25mg Take 1 [facility] 25 mg 0-31 12-12 tablet by ity of tablet 00:00: 00:00 mouth in [place] 00 :00 the Medical morning. Branch naltrexone 2021-07- No [id number] 50mg Take 1 [facility] 50 mg 0-31 12-12 tablet by ity of tablet 00:00: 00:00 mouth in [place] 00 :00 the Medical morning Branch for 90 days. atomoxetine 2021-07- No [id number] 40mg Take 1 [facility] 40 mg 0-31 12-12 capsule by ity of capsule 00:00: 00:00 mouth in [place] 00 :00 the Medical morning. Branch lamoTRIgine 2021-07- No [id number] 25mg Take 1 [facility] 25 mg 0-31 12-12 tablet by ity of tablet 00:00: 00:00 mouth in [place] 00 :00 the Medical morning. Branch naltrexone 2021-07- No [id number] 50mg Take 1 [facility] 50 mg 0-31 12-12 tablet by ity of tablet 00:00: 00:00 mouth in [place] 00 :00 the Medical morning Branch for 90 days. atomoxetine 2021-07- No [id number] 40mg Take 1 [facility] 40 mg 0-31 12-12 capsule by ity of capsule 00:00: 00:00 mouth in [place] 00 :00 the Medical morning. Branch lamoTRIgine 2021-07- No [id number] 25mg Take 1 [facility] 25 mg 0-31 12-12 tablet by ity of tablet 00:00: 00:00 mouth in [place] 00 :00 the Medical morning. Branch ARIPiprazol 2021-07- No [id number] 300mg Univers e (ABILIFY 0-20 10-20 ity of MAINTENA) 15:15: 15:46 [place] injection 00 :00 Medical SSRR 300 mg Branch ARIPiprazol 2021-07- No [id number] 300mg Univers e (ABILIFY 0-20 10-20 ity of MAINTENA) 15:15: 15:46 [place] injection 00 :00 Medical SSRR 300 mg Branch ARIPiprazol 2021-07- No [id number] 300mg Univers e (ABILIFY 0-20 10-20 ity of MAINTENA) 15:15: 15:46 [place] injection 00 :00 Medical SSRR 300 mg Branch ARIPiprazol 2021-07- No [id number] 300mg [facility] e (ABILIFY 0-20 10-20 ity of MAINTENA) 15:15: 15:46 [place] injection 00 :00 Medical SSRR 300 mg Branch ARIPiprazol 2021-07- No [id number] 300mg [facility] e (ABILIFY 0-20 10-20 ity of MAINTENA) 15:15: 15:46 [place] injection 00 :00 Medical SSRR 300 mg Branch ARIPiprazol 2021-07- No [id number] 300mg [facility] e (ABILIFY 0-20 10-20 ity of MAINTENA) 15:15: 15:46 [place] injection 00 :00 Medical SSRR 300 mg Branch ARIPiprazol 2021-07- No [id number] 300mg [facility] e (ABILIFY 0-19 10-20 ity of MAINTENA) 15:45: 03:44 [place] injection 00 :00 Medical SSRR 300 mg Branch lamoTRIgine 2021-1 Yes 25mg Take 1 [facility] ers 25 mg 0-18 tablet by ity of tablet 00:00: mouth in [place] the Medical morning. Branch lamoTRIgine 2-1 Yes 25mg Take 1 [facility] ers 25 mg 0-18 tablet by ity of tablet 00:00: mouth in [place] the Medical morning. Branch lamoTRIgine 2-1 Yes 25mg Take 1 [facility] ers 25 mg 0-18 tablet by ity of tablet 00:00: mouth in [place] the Medical morning. Branch lamoTRIgine 2-1 Yes 25mg Take 1 [facility] ers 25 mg 0-18 tablet by ity of tablet 00:00: mouth in [place] the Medical morning. Branch lamoTRIgine 2-1 Yes 25mg Take 1 [facility] ers 25 mg 0-18 tablet by ity of tablet 00:00: mouth in [place] the Medical morning. Branch lamoTRIgine 2-1 Yes 25mg Take 1 [facility] ers 25 mg 0-18 tablet by ity of tablet 00:00: mouth in [place] the Medical morning. Branch lamoTRIgine 2-1 Yes 25mg Take 1 [facility] ers 25 mg 0-18 tablet by ity of tablet 00:00: mouth in [place] the Medical morning. Branch lamoTRIgine 2-1 Yes 25mg Take 1 [facility] ers 25 mg 0-18 tablet by ity of tablet 00:00: mouth in [place] the Medical morning. Branch lamoTRIgine 2-1 Yes 25mg Take 1 [facility] ers 25 mg 0-18 tablet by ity of tablet 00:00: mouth in [place] the Medical morning. Branch lamoTRIgine 2-1 Yes 25mg Take 1 [facility] ers 25 mg 0-18 tablet by ity of tablet 00:00: mouth in [place] the Medical morning. Branch lamoTRIgine 2-1 Yes 25mg Take 1 [facility] ers 25 mg 0-18 tablet by ity of tablet 00:00: mouth in [place] the Medical morning. Branch lamoTRIgine 2-1 Yes 25mg Take 1 [facility] ers 25 mg 0-18 tablet by ity of tablet 00:00: mouth in [place] 00 the Medical morning. Branch lamoTRIgine 2-1 2022- No 25mg Take 1 [facility] vers 25 mg 0-18 10-31 tablet by ity of tablet 00:00: 00:00 mouth in [place] 00 :00 the Medical morning. Branch lamoTRIgine 2021-07- No 25mg Take 1 [facility] vers 25 mg 0-18 10-31 tablet by ity of tablet 00:00: 00:00 mouth in [place] 00 :00 the Medical morning. Branch lamoTRIgine 2021-2021- No 25mg Take 1 [facility] vers 25 mg 0-18 10-31 tablet by ity of tablet 00:00: 00:00 mouth in [place] 00 :00 the Medical morning. Branch lamoTRIgine 2021-2021- No 25mg Take 1 [facility] vers 25 mg 0-18 10-31 tablet by ity of tablet 00:00: 00:00 mouth in [place] 00 :00 the Medical morning. Branch atomoxetine 2021-07 Yes [id number] 40mg Take 1 [facility] 40 mg 0-13 capsule by ity of capsule 00:00: mouth in [place] 00 the Medical morning. Branch atomoxetine 2021-07 Yes [id number] 40mg Take 1 [facility] 40 mg 0-13 capsule by ity of capsule 00:00: mouth in [place] 00 the Medical morning. Branch atomoxetine 2021-07 Yes [id number] 40mg Take 1 [facility] 40 mg 0-13 capsule by ity of capsule 00:00: mouth in [place] 00 the Medical morning. Branch atomoxetine 2021-07 Yes [id number] 40mg Take 1 [facility] 40 mg 0-13 capsule by ity of capsule 00:00: mouth in [place] 00 the Medical morning. Branch atomoxetine 2021- Yes [id number] 40mg Take 1 [facility] 40 mg 0-13 capsule by ity of capsule 00:00: mouth in [place] 00 the Medical morning. Branch atomoxetine 2021-07 Yes [id number] 40mg Take 1 [facility] 40 mg 0-13 capsule by ity of capsule 00:00: mouth in [place] 00 the Medical morning. Branch atomoxetine 2021- Yes [id number] 40mg Take 1 [facility] 40 mg 0-13 capsule by ity of capsule 00:00: mouth in [place] 00 the Medical morning. Branch atomoxetine 2021- Yes [id number] 40mg Take 1 [facility] 40 mg 0-13 capsule by ity of capsule 00:00: mouth in [place] 00 the Medical morning. Branch atomoxetine 2021 Yes [id number] 40mg Take 1 [facility] 40 mg 0-13 capsule by ity of capsule 00:00: mouth in [place] 00 the Medical morning. Branch atomoxetine 2021-07 Yes [id number] 40mg Take 1 [facility] 40 mg 0-13 capsule by ity of capsule 00:00: mouth in [place] the Medical morning. Branch atomoxetine 2021-07 Yes [id number] 40mg Take 1 [facility] 40 mg 0-13 capsule by ity of capsule 00:00: mouth in [place] the Medical morning. Branch atomoxetine 2021-07 Yes [id number] 40mg Take 1 [facility] 40 mg 0-13 capsule by ity of capsule 00:00: mouth in [place] 00 the Medical morning. Branch atomoxetine 2021-07 Yes [id number] 40mg Take 1 [facility] 40 mg 0-13 capsule by ity of capsule 00:00: mouth in [place] the Medical morning. Branch atomoxetine 2021-07 Yes [id number] 40mg Take 1 [facility] 40 mg 0-13 capsule by ity of capsule 00:00: mouth in [place] the Medical morning. Branch atomoxetine 2021-07 Yes [id number] 40mg Take 1 [facility] 40 mg 0-13 capsule by ity of capsule 00:00: mouth in [place] the Medical morning. Branch atomoxetine 2021-07 Yes [id number] 40mg Take 1 [facility] 40 mg 0-13 capsule by ity of capsule 00:00: mouth in [place] the Medical morning. Branch atomoxetine 2021-07 Yes [id number] 40mg Take 1 [facility] 40 mg 0-13 capsule by ity of capsule 00:00: mouth in [place] the Medical morning. Branch atomoxetine 2021-07 Yes [id number] 40mg Take 1 [facility] 40 mg 0-13 capsule by ity of capsule 00:00: mouth in [place] the Medical morning. Branch atomoxetine 2021-07- No [id number] 40mg Take 1 [facility] 40 mg 0-13 10-31 capsule by ity of capsule 00:00: 00:00 mouth in [place] 00 :00 the Medical morning. Branch atomoxetine 2021-07- No [id number] 40mg Take 1 [facility] 40 mg 0-13 10-31 capsule by ity of capsule 00:00: 00:00 mouth in [place] 00 :00 the Medical morning. Branch atomoxetine 2021-07- No [id number] 40mg Take 1 [facility] 40 mg 0-13 10-31 capsule by ity of capsule 00:00: 00:00 mouth in [place] 00 :00 the Medical morning. Branch atomoxetine 2021-07- No [id number] 40mg Take 1 [facility] 40 mg 0-13 10-31 capsule by ity of capsule 00:00: 00:00 mouth in [place] 00 :00 the Medical morning. Branch NaCl [...] by ity of capsule 00:00: mouth in [place] 00 the Medical morning. Branch lamoTRIgine 2021-07 Yes 25mg Take 1 [facility] ers 25 mg 0-07 tablet by ity of tablet 00:00: mouth in [place] 00 the Medical morning. Branch atomoxetine 2021-07 Yes 40mg Take 1 [facility] ers 40 mg 0-07 capsule by ity of capsule 00:00: mouth in [place] 00 the Medical morning. Branch lamoTRIgine 2021-07 Yes 25mg Take 1 [facility] ers 25 mg 0-07 tablet by ity of tablet 00:00: mouth in [place] 00 the Medical morning. Branch atomoxetine 2021-07 Yes 40mg Take 1 [facility] ers 40 mg 0-07 capsule by ity of capsule 00:00: mouth in [place] 00 the Medical morning. Branch lamoTRIgine 2021-07 Yes 25mg Take 1 [facility] ers 25 mg 0-07 tablet by ity of tablet 00:00: mouth in [place] 00 the Medical morning. Branch atomoxetine 2021-07 Yes 40mg Take 1 [facility] ers 40 mg 0-07 capsule by ity of capsule 00:00: mouth in [place] 00 the Medical morning. Branch lamoTRIgine 2021-07 Yes 25mg Take 1 [facility] ers 25 mg 0-07 tablet by ity of tablet 00:00: mouth in [place] 00 the Medical morning. Branch lamoTRIgine 2021- Yes 25mg Take 1 [facility] ers 25 mg 0-07 tablet by ity of tablet 00:00: mouth in [place] 00 the Medical morning. Branch lamoTRIgine 2021- Yes 25mg Take 1 [facility] ers 25 mg 0-07 tablet by ity of tablet 00:00: mouth in [place] 00 the Medical morning. Branch lamoTRIgine 2021-07 Yes 25mg Take 1 [facility] ers 25 mg 0-07 tablet by ity of tablet 00:00: mouth in [place] 00 the Medical morning. Branch lamoTRIgine 2021- Yes 25mg Take 1 [facility] ers 25 mg 0-07 tablet by ity of tablet 00:00: mouth in [place] 00 the Medical morning. Branch lamoTRIgine 2021- Yes 25mg Take 1 [facility] ers 25 mg 0-07 tablet by ity of tablet 00:00: mouth in [place] 00 the Medical morning. Branch lamoTRIgine 2021- Yes 25mg Take 1 [facility] ers 25 mg 0-07 tablet by ity of tablet 00:00: mouth in [place] 00 the Medical morning. Branch polyethylen 2021-07- No [id number] 17g Take 1 [facility] e glycol 0-07 11-07 Packet by ity o f 3350 17 00:00: 05:59 mouth in [place] gram powder 00 :00 the [facility] morning Branch for 30 days. polyethylen 2021-07- No [id number] 17g Take 1 [facility] e glycol 0-07 11-07 Packet by ity o f 3350 17 00:00: 05:59 mouth in [place] gram powder 00 :00 the [facility] morning Branch for 30 days. polyethylen 2021-07- No [id number] 17g Take 1 [facility] e glycol 0-07 11-07 Packet by ity o f 3350 17 00:00: 05:59 mouth in [place] gram powder 00 :00 the [facility] morning Branch for 30 days. polyethylen 2021-07- No [id number] 17g Take 1 [facility] e glycol 0-07 11-07 Packet by ity o f 3350 17 00:00: 05:59 mouth in [place] gram powder 00 :00 the Medical morning Branch for 30 days. polyethylen 2021-07- No [id number] 17g Take 1 [facility] e glycol 0-07 11-07 Packet by ity o f 3350 17 00:00: 05:59 mouth in [place] gram powder 00 :00 the [facility] morning Branch for 30 days. polyethylen 2021-07- No [id number] 17g Take 1 [facility] e glycol 0-07 11-07 Packet by ity o f 3350 17 00:00: 05:59 mouth in [place] gram powder 00 :00 the [facility] morning Branch for 30 days. polyethylen 2021-07- No [id number] 17g Take 1 [facility] e glycol 0-07 11-07 Packet by ity o f 3350 17 00:00: 05:59 mouth in [place] gram powder 00 :00 the [facility] morning Branch for 30 days. polyethylen 2021-07- No [id number] 17g Take 1 [facility] e glycol 0-07 11-07 Packet by ity o f 3350 17 00:00: 05:59 mouth in [place] gram powder 00 :00 the [facility] Branch for 30 days. polyethylen 2021-07- No [id number] 17g Take 1 [facility] e glycol 0-07 11-07 Packet by ity o f 3350 17 00:00: 05:59 mouth in [place] gram powder 00 :00 the [facility] Branch for 30 days. polyethylen 2021-07- No [id number] 17g Take 1 [facility] e glycol 0-07 11-07 Packet by ity o f 3350 17 00:00: 05:59 mouth in [place] gram powder 00 :00 the [facility] morning Branch for 30 days. polyethylen 2021-07- No [id number] 17g Take 1 [facility] e glycol 0-07 11-07 Packet by ity o f 3350 17 00:00: 05:59 mouth in [place] gram powder 00 :00 the [facility] morning Branch for 30 days. polyethylen 2021-07- No [id number] 17g Take 1 [facility] e glycol 0-07 11-07 Packet by ity o f 3350 17 00:00: 05:59 mouth in [place] gram powder 00 :00 the [facility] morning Branch for 30 days. polyethylen 2021-07- No [id number] 17g Take 1 [facility] e glycol 0-07 11-07 Packet by ity o f 3350 17 00:00: 05:59 mouth in [place] gram powder 00 :00 the [facility] morning Branch for 30 days. polyethylen 2021-07- No [id number] 17g Take 1 [facility] e glycol 0-07 11-07 Packet by ity o f 3350 17 00:00: 05:59 mouth in [place] gram powder 00 :00 the Medical morning Branch for 30 days. polyethylen 2021-07- No [id number] 17g Take 1 [facility] e glycol 0-07 11-07 Packet by ity o f 3350 17 00:00: 05:59 mouth in [place] gram powder 00 :00 the Medical morning Branch for 30 days. polyethylen 2021-07- No [id number] 17g Take 1 [facility] e glycol 0-07 11-07 Packet by ity o f 3350 17 00:00: 05:59 mouth in [place] gram powder 00 :00 the Medical morning Branch for 30 days. polyethylen 2021-07- No [id number] 17g Take 1 [facility] e glycol 0-07 11-07 Packet by ity o f 3350 17 00:00: 05:59 mouth in [place] gram powder 00 :00 the Medical morning Branch for 30 days. polyethylen 2021-07- No [id number] 17g Take 1 [facility] e glycol 0-07 11-07 Packet by ity o f 3350 17 00:00: 05:59 mouth in [place] gram powder 00 :00 the Medical morning Branch for 30 days. polyethylen 2021-07- No [id number] 17g Take 1 [facility] e glycol 0-07 11-07 Packet by ity o f 3350 17 00:00: 05:59 mouth in [place] gram powder 00 :00 the Medical morning Branch for 30 days. polyethylen 2021-07- No [id number] 17g Take 1 [facility] e glycol 0-07 11-07 Packet by ity o f 3350 17 00:00: 05:59 mouth in [place] gram powder 00 :00 the Medical morning Branch for 30 days. polyethylen 2021-07- No [id number] 17g Take 1 [facility] e glycol 0-07 11-07 Packet by ity o f 3350 17 00:00: 05:59 mouth in [place] gram powder 00 :00 the Medical morning Branch for 30 days. polyethylen 2021-07- No [id number] 17g Take 1 [facility] e glycol 0-07 11-07 Packet by ity o f 3350 17 00:00: 05:59 mouth in [place] gram powder 00 :00 the Medical morning Branch for 30 days. polyethylen 2021-07- No [id number] 17g Take 1 [facility] e glycol 0-07 11-07 Packet by ity o f 3350 17 00:00: 05:59 mouth in [place] gram powder 00 :00 the Medical morning Branch for 30 days. polyethylen 2021-07- No [id number] 17g Take 1 [facility] e glycol 0-07 11-07 Packet by ity o f 3350 17 00:00: 05:59 mouth in [place] gram powder 00 :00 the Medical morning Branch for 30 days. polyethylen 2021-07- No [id number] 17g Take 1 [facility] e glycol 0-07 11-07 Packet by ity o f 3350 17 00:00: 05:59 mouth in [place] gram powder 00 :00 the Medical morning Branch for 30 days. polyethylen 2021-07- No [id number] 17g Take 1 [facility] e glycol 0-07 11-07 Packet by ity o f 3350 17 00:00: 05:59 mouth in [place] gram powder 00 :00 the Medical morning Branch for 30 days. lamoTRIgine 2021-2021- No 25mg Take 1 [facility] vers 25 mg 0-07 10-18 tablet by ity of tablet 00:00: 00:00 mouth in [place] 00 :00 the Medical morning. [place] lamoTRIgine 2021-2021- No 25mg Take 1 [facility] vers 25 mg 0-07 10-18 tablet by ity of tablet 00:00: 00:00 mouth in [place] 00 :00 the Medical morning. Branch lamoTRIgine 2021-2- No 25mg Take 1 [facility] vers 25 mg 0-07 10-18 tablet by ity of tablet 00:00: 00:00 mouth in [place] 00 :00 the Medical morning. Branch lamoTRIgine 2021-2- No 25mg Take 1 [facility] vers 25 mg 0-07 10-18 tablet by ity of tablet 00:00: 00:00 mouth in [place] 00 :00 the Medical morning. [place] lamoTRIgine 2021- 2022- No 25mg Take 1 [facility] vers 25 mg 0-07 10-18 tablet by ity of tablet 00:00: 00:00 mouth in [place] 00 :00 the Medical morning. Branch lamoTRIgine 2021-2021- No 25mg Take 1 [facility] vers 25 mg 0-07 10-18 tablet by ity of tablet 00:00: 00:00 mouth in [place] 00 :00 the Medical morning. Branch lamoTRIgine 2021-2021- No 25mg Take 1 [facility] vers 25 mg 0-07 10-18 tablet by ity of tablet 00:00: 00:00 mouth in [place] 00 :00 the Medical morning. Branch lamoTRIgine 2021-2021- No 25mg Take 1 [facility] vers 25 mg 0-07 10-18 tablet by ity of tablet 00:00: 00:00 mouth in [place] 00 :00 the Medical morning. Branch lamoTRIgine 2021-2021- No 25mg Take 1 [facility] vers 25 mg 0-07 10-18 tablet by ity of tablet 00:00: 00:00 mouth in [place] 00 :00 the Medical morning. Branch lamoTRIgine 2021-2021- No 25mg Take 1 [facility] vers 25 mg 0-07 10-18 tablet by ity of tablet 00:00: 00:00 mouth in [place] 00 :00 the Medical morning. Branch lamoTRIgine 2021-2021- No 25mg Take 1 [facility] vers 25 mg 0-07 10-18 tablet by ity of tablet 00:00: 00:00 mouth in [place] 00 :00 the Medical morning. Branch tamsulosin 2021-2021- No [id number] .4mg Take 1 [facility] 0.4 mg 24 0-07 10-15 capsule by ity of hr capsule 00:00: 04:59 mouth in [facility] 00 :00 the Medical morning Branch for 7 days. tamsulosin 2021-2021- No [id number] .4mg Take 1 [facility] 0.4 mg 24 0-07 10-15 capsule by ity of hr capsule 00:00: 04:59 mouth in [place] 00 :00 the Medical morning Branch for 7 days. tamsulosin 2021-2021- No [id number] .4mg Take 1 [facility] 0.4 mg 24 0-07 10-15 capsule by ity of hr capsule 00:00: 04:59 mouth in [place] 00 :00 the Medical morning Branch for 7 days. tamsulosin 2021-07- No [id number] .4mg Take 1 [facility] 0.4 mg 24 0-07 10-15 capsule by ity of hr capsule 00:00: 04:59 mouth in [place] 00 :00 the [facility] morning Branch for 7 days. tamsulosin 2021-07- No [id number] .4mg Take 1 [facility] 0.4 mg 24 0-07 10-15 capsule by ity of hr capsule 00:00: 04:59 mouth in [place] 00 :00 the [facility] morning Branch for 7 days. tamsulosin 2021-07- No [id number] .4mg Take 1 [facility] 0.4 mg 24 0-07 10-15 capsule by ity of hr capsule 00:00: 04:59 mouth in [place] 00 :00 the [facility] morning Branch for 7 days. tamsulosin 2021-07- No [id number] .4mg Take 1 [facility] 0.4 mg 24 0-07 10-15 capsule by [facility] hr capsule 00:00: 04:59 mouth in [place] 00 :00 the [facility] for 7 days. tamsulosin 2021-07- No [id number] .4mg Take 1 [facility] 0.4 mg 24 0-07 10-15 capsule by [facility] hr capsule 00:00: 04:59 mouth in [place] 00 :00 the [facility] for 7 days. tamsulosin 2021-07- No [id number] .4mg Take 1 [facility] 0.4 mg 24 0-07 10-15 capsule by [facility] hr capsule 00:00: 04:59 mouth in [place] 00 :00 the [facility] morning Branch for 7 days. tamsulosin 2021-07- No [id number] .4mg Take 1 [facility] 0.4 mg 24 0-07 10-15 capsule by [facility] of hr capsule 00:00: 04:59 mouth in [place] 00 :00 the [facility] morning Branch for 7 days. tamsulosin 2021-07 No [id number] .4mg Take 1 [facility] 0.4 mg 24 0-07 10-15 capsule by [facility] hr capsule 00:00: 04:59 mouth in [place] 00 :00 the [facility] morning Branch for 7 days. tamsulosin 2021-07- No [id number] .4mg Take 1 [facility] 0.4 mg 24 0-07 10-15 capsule by [facility] hr capsule 00:00: 04:59 mouth in [place] 00 :00 the [facility] morning Branch for 7 days. tamsulosin 2021-07- No [id number] .4mg Take 1 [facility] 0.4 mg 24 0-07 10-15 capsule by [facility] hr capsule 00:00: 04:59 mouth in [place] 00 :00 the [facility] morning Branch for 7 days. tamsulosin 2021-07- No [id number] .4mg Take 1 [facility] 0.4 mg 24 0-07 10-15 capsule by [facility] hr capsule 00:00: 04:59 mouth in [place] 00 :00 the [facility] morning Branch for 7 days. tamsulosin 2021-07- No [id number] .4mg Take 1 [facility] 0.4 mg 24 0-07 10-15 capsule by [facility] hr capsule 00:00: 04:59 mouth in [place] 00 :00 the [facility] morning Branch for 7 days. tamsulosin 2021-07- No [id number] .4mg Take 1 [facility] 0.4 mg 24 0-07 10-15 capsule by [facility] hr capsule 00:00: 04:59 mouth in [place] 00 :00 the [facility] morning Branch for 7 days. tamsulosin 2021-07- No [id number] .4mg Take 1 [facility] 0.4 mg 24 0-07 10-15 capsule by [facility] hr capsule 00:00: 04:59 mouth in [place] 00 :00 the [facility] morning Branch for 7 days. tamsulosin 2021-07 No [id number] .4mg Take 1 [facility] 0.4 mg 24 0-07 10-15 capsule by [facility] hr capsule 00:00: 04:59 mouth in [place] 00 :00 the [facility] morning Branch for 7 days. tamsulosin 2021-07- No [id number] .4mg Take 1 [facility] 0.4 mg 24 0-07 10-15 capsule by [facility] hr capsule 00:00: 04:59 mouth in [place] 00 :00 the [facility] morning Branch for 7 days. tamsulosin 2021-07- No [id number] .4mg Take 1 [facility] 0.4 mg 24 0-07 10-15 capsule by [facility] hr capsule 00:00: 04:59 mouth in [facility] 00 :00 the Medical morning Branch for 7 days. tamsulosin 2021-07- No [id number] .4mg Take 1 [facility] 0.4 mg 24 0-07 10-15 capsule by [facility] hr capsule 00:00: 04:59 mouth in [facility] 00 :00 the Medical morning Branch for 7 days. atomoxetine 2021-2021- No 40mg Take 1 [facility] vers 40 mg 0-07 10-13 capsule by [facility] of capsule 00:00: 00:00 mouth in [place] 00 :00 the Medical morning. [facility] atomoxetine 2021-2021- No 40mg Take 1 [facility] vers 40 mg 0-07 10-13 capsule by [facility] of capsule 00:00: 00:00 mouth in [place] 00 :00 the Medical morning. [facility] atomoxetine 2021-2021- No 40mg Take 1 [facility] vers 40 mg 0-07 10-13 capsule by [facility] of capsule 00:00: 00:00 mouth in [place] 00 :00 the Medical morning. [facility] atomoxetine 2021-2021- No 40mg Take 1 [facility] vers 40 mg 0-07 10-13 capsule by [facility] of capsule 00:00: 00:00 mouth in [place] 00 :00 the Medical morning. [facility] atomoxetine 2021-2021- No 40mg Take 1 [facility] vers 40 mg 0-07 10-13 capsule by [facility] of capsule 00:00: 00:00 mouth in [place] 00 :00 the Medical morning. Branch atomoxetine 2021-2021- No 40mg Take 1 [facility] vers 40 mg 0-07 10-13 capsule by [facility] of capsule 00:00: 00:00 mouth in [place] 00 :00 the Medical morning. Branch atomoxetine 2021-2021- No 40mg Take 1 [facility] vers 40 mg 0-07 10-13 capsule by [facility] of capsule 00:00: 00:00 mouth in [place] 00 :00 the Medical morning. [facility] atomoxetine 2021-2021- No 40mg Take 1 [facility] vers 40 mg 0-07 10-13 capsule by [facility] of capsule 00:00: 00:00 mouth in [place] 00 :00 the Medical morning. [facility] atomoxetine 2021-07- No 40mg Take 1 [facility] vers 40 mg 0-07 10-13 capsule by [facility] of capsule 00:00: 00:00 mouth in [place] 00 :00 the Medical morning. [facility] atomoxetine 2021-07- No 40mg Take 1 [facility] vers 40 mg 0-07 10-13 capsule by [facility] of capsule 00:00: 00:00 mouth in [place] 00 :00 the Medical morning. [facility] atomoxetine 2021-2021- No 40mg Take 1 [facility] vers 40 mg 0-07 10-13 capsule by [facility] of capsule 00:00: 00:00 mouth in [place] 00 :00 the Medical morning. [facility] atomoxetine 2021-07- No 40mg Take 1 [facility] vers 40 mg 0-07 10-13 capsule by [facility] of capsule 00:00: 00:00 mouth in [place] 00 :00 the Medical morning. [facility] atomoxetine 2021-07- No 40mg Take 1 [facility] vers 40 mg 0-07 10-13 capsule by [facility] of capsule 00:00: 00:00 mouth in [place] 00 :00 the Medical morning. [facility] atomoxetine 2021-07- No 40mg Take 1 [facility] vers 40 mg 0-07 10-13 capsule by [facility] of capsule 00:00: 00:00 mouth in [place] 00 :00 the Medical morning. [facility] atomoxetine 2021-07- No 40mg Take 1 [facility] vers 40 mg 0-07 10-13 capsule by [facility] of capsule 00:00: 00:00 mouth in [place] 00 :00 the Medical morning. [facility] atomoxetine 2021-07- No 40mg Take 1 [facility] vers 40 mg 0-07 10-13 capsule by [facility] of capsule 00:00: 00:00 mouth in [place] 00 :00 the Medical morning. [facility] atomoxetine 2021-07- No 40mg Take 1 [facility] vers 40 mg 0-07 10-13 capsule by [facility] of capsule 00:00: 00:00 mouth in [place] 00 :00 the Medical morning. [facility] traZODone 2021-07 Yes 50mg 50 mg, [facility] (DESYREL) 0-06 Oral, QHS, [facility] of tablet 50 02:00: First dose [place] mg 00 on Mon04/06/22 at [facility] 2100, Until Discontinu ed, Routine acetaminoph 2021-07 Yes [id number] 1000mg Take 2 [facility] en 500 mg 0-06 tablets by [facility] of tablet 00:00: mouth [place] 00 every 8 Medical (eight) Branch hours as needed for Pain. traZODone 2021-07 Yes 50mg Take 1 [facility] 50 mg 0-06 tablet by [facility] of tablet 00:00: mouth at [place] 00 bedtime. Medical Branch methocarbam 2021-07 Yes [id number] 500mg Take 1 [facility] oL 500 mg 0-06 tablet by [facility] o f tablet 00:00: mouth 4 [place] 00 (four) Medical times Branch daily as needed (muscle spasms). ibuprofen 2021-07 Yes [id number] 600mg Take 1 [facility] 600 mg 0-06 tablet by [facility] of tablet 00:00: mouth [place] 00 every 6 Medical (six) Branch hours as needed for Pain (scale 4-6). acetaminoph 2021-07 Yes [id number] 1000mg Take 2 [facility] en 500 mg 0-06 tablets by [facility] of tablet 00:00: mouth [place] 00 every 8 Medical (eight) Branch hours as needed for Pain. traZODone 2021-07 Yes 50mg Take 1 [facility] 50 mg 0-06 tablet by [facility] of tablet 00:00: mouth at [place] 00 bedtime. Medical Branch methocarbam 2021-07 Yes [id number] 500mg Take 1 [facility] oL 500 mg 0-06 tablet by [facility] o f tablet 00:00: mouth 4 [place] 00 (four) Medical times Branch daily as needed (muscle spasms). ibuprofen 2021-07 Yes [id number] 600mg Take 1 [facility] 600 mg 0-06 tablet by [facility] of tablet 00:00: mouth [place] 00 every 6 Medical (six) Branch hours as needed for Pain (scale 4-6). acetaminoph 2021-07 Yes [id number] 1000mg Take 2 [facility] en 500 mg 0-06 tablets by [facility] of tablet 00:00: mouth [place] 00 every 8 Medical (eight) Branch hours as needed for Pain. traZODone 2021-07 Yes 50mg Take 1 [facility] 50 mg 0-06 tablet by [facility] of tablet 00:00: mouth at [place] 00 bedtime. Medical Branch methocarbam 2021-07 Yes [id number] 500mg Take 1 [facility] oL 500 mg 0-06 tablet by [facility] o f tablet 00:00: mouth 4 00 (four) Medical times Branch daily as needed (muscle spasms). ibuprofen 2021-07 Yes [id number] 600mg Take 1 [facility] 600 mg 0-06 tablet by [facility] of tablet 00:00: mouth [place] 00 every 6 Medical (six) Branch hours as needed for Pain (scale 4-6). acetaminoph 2021-07 Yes [id number] 1000mg Take 2 [facility] en 500 mg 0-06 tablets by [facility] of tablet 00:00: mouth [place] 00 every 8 Medical (eight) Branch hours as needed for Pain. traZODone 2021-07 Yes 50mg Take 1 [facility] 50 mg 0-06 tablet by [facility] of tablet 00:00: mouth at [place] 00 bedtime. Medical Branch methocarbam 2021-07 Yes [id number] 500mg Take 1 [facility] oL 500 mg 0-06 tablet by [facility] o f tablet 00:00: mouth (four) Medical times Branch daily as needed (muscle spasms). ibuprofen 2021-07 Yes [id number] 600mg Take 1 [facility] 600 mg 0-06 tablet by [facility] of tablet 00:00: mouth [place] 00 every 6 Medical (six) Branch hours as needed for Pain (scale 4-6). acetaminoph 2021-07 Yes [id number] 1000mg Take 2 [facility] en 500 mg 0-06 tablets by [facility] of tablet 00:00: mouth [place] 00 every 8 Medical (eight) Branch hours as needed for Pain. traZODone 2021-07 Yes 50mg Take 1 [facility] 50 mg 0-06 tablet by [facility] of tablet 00:00: mouth at [place] 00 bedtime. Medical Branch methocarbam 2021-07 Yes [id number] 500mg Take 1 [facility] oL 500 mg 0-06 tablet by [facility] o f tablet 00:00: mouth 00 (four) Medical times Branch daily as needed (muscle spasms). ibuprofen 2021-07 Yes [id number] 600mg Take 1 [facility] 600 mg 0-06 tablet by [facility] of tablet 00:00: mouth [place] 00 every 6 Medical (six) Branch hours as needed for Pain (scale 4-6). acetaminoph 2021-07 Yes [id number] 1000mg Take 2 [facility] en 500 mg 0-06 tablets by [facility] of tablet 00:00: mouth [place] 00 every 8 Medical (eight) Branch hours as needed for Pain. traZODone 2021-07 Yes 50mg Take 1 [facility] 50 mg 0-06 tablet by [facility] of tablet 00:00: mouth at [place] 00 bedtime. Medical Branch methocarbam 2021-07 Yes [id number] 500mg Take 1 [facility] oL 500 mg 0-06 tablet by [facility] o f tablet 00:00: mouth 4 (four) Medical times Branch daily as needed (muscle spasms). ibuprofen 2021-07 Yes [id number] 600mg Take 1 [facility] 600 mg 0-06 tablet by [facility] of tablet 00:00: mouth [place] 00 every 6 Medical (six) Branch hours as needed for Pain (scale 4-6). acetaminoph 2021-07 Yes [id number] 1000mg Take 2 [facility] en 500 mg 0-06 tablets by [facility] of tablet 00:00: mouth 00 every 8 Medical (eight) Branch hours as needed for Pain. traZODone 2021-07 Yes 50mg Take 1 [facility] 50 mg 0-06 tablet by [facility] of tablet 00:00: mouth at 00 bedtime. Medical Branch methocarbam 2021-07 Yes [id number] 500mg Take 1 [facility] oL 500 mg 0-06 tablet by [facility] o f tablet 00:00: mouth (four) Medical times Branch daily as needed (muscle spasms). ibuprofen 2021-07 Yes [id number] 600mg Take 1 [facility] 600 mg 0-06 tablet by [facility] of tablet 00:00: mouth [place] 00 every 6 Medical (six) Branch hours as needed for Pain (scale 4-6). acetaminoph 2021-07 Yes [id number] 1000mg Take 2 [facility] en 500 mg 0-06 tablets by [facility] of tablet 00:00: mouth [place] 00 every 8 Medical (eight) Branch hours as needed for Pain. traZODone 2021-07 Yes 50mg Take 1 [facility] 50 mg 0-06 tablet by [facility] of tablet 00:00: mouth at [place] 00 bedtime. Medical Branch methocarbam 2021-07 Yes [id number] 500mg Take 1 [facility] oL 500 mg 0-06 tablet by [facility] o f tablet 00:00: mouth (four) Medical times Branch daily as needed (muscle spasms). ibuprofen 2021-07 Yes [id number] 600mg Take 1 [facility] 600 mg 0-06 tablet by [facility] of tablet 00:00: mouth [place] 00 every 6 Medical (six) Branch hours as needed for Pain (scale 4-6). acetaminoph 2021-07 Yes [id number] 1000mg Take 2 [facility] en 500 mg 0-06 tablets by [facility] of tablet 00:00: mouth [place] 00 every 8 Medical (eight) Branch hours as needed for Pain. traZODone 2021-07 Yes 50mg Take 1 [facility] 50 mg 0-06 tablet by [facility] of tablet 00:00: mouth at [place] 00 bedtime. Medical Branch methocarbam 2021-07 Yes [id number] 500mg Take 1 [facility] oL 500 mg 0-06 tablet by [facility] o f tablet 00:00: mouth 4 00 (four) Medical times Branch daily as needed (muscle spasms). ibuprofen 2021-07 Yes [id number] 600mg Take 1 [facility] 600 mg 0-06 tablet by [facility] of tablet 00:00: mouth [place] 00 every 6 Medical (six) Branch hours as needed for Pain (scale 4-6). acetaminoph 2021-07 Yes [id number] 1000mg Take 2 [facility] en 500 mg 0-06 tablets by [facility] of tablet 00:00: mouth [place] 00 every 8 Medical (eight) Branch hours as needed for Pain. traZODone 2021-07 Yes 50mg Take 1 [facility] 50 mg 0-06 tablet by [facility] of tablet 00:00: mouth at [place] 00 bedtime. Medical Branch methocarbam 2021-07 Yes [id number] 500mg Take 1 [facility] oL 500 mg 0-06 tablet by [facility]y o f tablet 00:00: mouth 4 00 (four) Medical times Branch daily as needed (muscle spasms). ibuprofen 2021-07 Yes [id number] 600mg Take 1 [facility] 600 mg 0-06 tablet by [facility] of tablet 00:00: mouth [place] 00 every 6 Medical (six) Branch hours as needed for Pain (scale 4-6). acetaminoph 2021-07 Yes [id number] 1000mg Take 2 [facility] en 500 mg 0-06 tablets by [facility] of tablet 00:00: mouth [place] 00 every 8 Medical (eight) Branch hours as needed for Pain. traZODone 2021-07 Yes 50mg Take 1 [facility] 50 mg 0-06 tablet by [facility] of tablet 00:00: mouth at [place] 00 bedtime. Medical Branch methocarbam 2021-07 Yes [id number] 500mg Take 1 [facility] oL 500 mg 0-06 tablet by [facility] o f tablet 00:00: mouth 4 00 (four) Medical times Branch daily as needed (muscle spasms). ibuprofen 2021-07 Yes [id number] 600mg Take 1 [facility] 600 mg 0-06 tablet by [facility] of tablet 00:00: mouth [place] 00 every 6 Medical (six) Branch hours as needed for Pain (scale 4-6). acetaminoph 2021-07 Yes [id number] 1000mg Take 2 [facility] en 500 mg 0-06 tablets by [facility] of tablet 00:00: mouth [place] 00 every 8 Medical (eight) Branch hours as needed for Pain. traZODone 2021-07 Yes 50mg Take 1 [facility] 50 mg 0-06 tablet by [facility] of tablet 00:00: mouth at [place] 00 bedtime. Medical Branch methocarbam 2021-07 Yes [id number] 500mg Take 1 [facility] oL 500 mg 0-06 tablet by [facility] o f tablet 00:00: mouth (four) Medical times Branch daily as needed (muscle spasms). ibuprofen 2021-07 Yes [id number] 600mg Take 1 [facility] 600 mg 0-06 tablet by [facility] of tablet 00:00: mouth [place] 00 every 6 Medical (six) Branch hours as needed for Pain (scale 4-6). acetaminoph 2021-07 Yes [id number] 1000mg Take 2 [facility] en 500 mg 0-06 tablets by [facility] of tablet 00:00: mouth [place] 00 every 8 Medical (eight) Branch hours as needed for Pain. traZODone 2021-07 Yes 50mg Take 1 [facility] 50 mg 0-06 tablet by [facility] of tablet 00:00: mouth at [place] 00 bedtime. Medical Branch methocarbam 2021-07 Yes [id number] 500mg Take 1 [facility] oL 500 mg 0-06 tablet by [facility]y o f tablet 00:00: mouth 4 00 (four) Medical times Branch daily as needed (muscle spasms). ibuprofen 2021-07 Yes [id number] 600mg Take 1 [facility] 600 mg 0-06 tablet by [facility] of tablet 00:00: mouth [place] 00 every 6 Medical (six) Branch hours as needed for Pain (scale 4-6). acetaminoph 2021-07 Yes [id number] 1000mg Take 2 [facility] en 500 mg 0-06 tablets by [facility] of tablet 00:00: mouth [place] 00 every 8 Medical (eight) Branch hours as needed for Pain. traZODone 2021-07 Yes 50mg Take 1 [facility] 50 mg 0-06 tablet by [facility] of tablet 00:00: mouth at [place] 00 bedtime. Medical Branch methocarbam 2021-07 Yes [id number] 500mg Take 1 [facility] oL 500 mg 0-06 tablet by [facility]y o f tablet 00:00: mouth 4 00 (four) Medical times Branch daily as needed (muscle spasms). ibuprofen 2021-07 Yes [id number] 600mg Take 1 [facility] 600 mg 0-06 tablet by [facility] of tablet 00:00: mouth [place] 00 every 6 Medical (six) Branch hours as needed for Pain (scale 4-6). acetaminoph 2021-07 Yes [id number] 1000mg Take 2 [facility] en 500 mg 0-06 tablets by [facility] of tablet 00:00: mouth [place] 00 every 8 Medical (eight) Branch hours as needed for Pain. traZODone 2021-07 Yes 50mg Take 1 [facility] 50 mg 0-06 tablet by [facility] of tablet 00:00: mouth at [place] 00 bedtime. Medical Branch methocarbam 2021-07 Yes [id number] 500mg Take 1 [facility] oL 500 mg 0-06 tablet by [facility] o f tablet 00:00: mouth 00 (four) Medical times Branch daily as needed (muscle spasms). ibuprofen 2021-07 Yes [id number] 600mg Take 1 [facility] 600 mg 0-06 tablet by [facility] of tablet 00:00: mouth [place] 00 every 6 Medical (six) Branch hours as needed for Pain (scale 4-6). acetaminoph 2021-07 Yes [id number] 1000mg Take 2 [facility] en 500 mg 0-06 tablets by [facility] of tablet 00:00: mouth [place] 00 every 8 Medical (eight) Branch hours as needed for Pain. traZODone 2021-07 Yes 50mg Take 1 [facility] 50 mg 0-06 tablet by [facility] of tablet 00:00: mouth at [place] 00 bedtime. Medical Branch methocarbam 2021-07 Yes [id number] 500mg Take 1 [facility] oL 500 mg 0-06 tablet by [facility] o f tablet 00:00: mouth 4 00 (four) Medical times Branch daily as needed (muscle spasms). ibuprofen 2021-07 Yes [id number] 600mg Take 1 [facility] 600 mg 0-06 tablet by [facility] of tablet 00:00: mouth [place] 00 every 6 Medical (six) Branch hours as needed for Pain (scale 4-6). acetaminoph 2021-07 Yes [id number] 1000mg Take 2 [facility] en 500 mg 0-06 tablets by [facility] of tablet 00:00: mouth [place] 00 every 8 Medical (eight) Branch hours as needed for Pain. traZODone 2021-07 Yes 50mg Take 1 [facility] 50 mg 0-06 tablet by [facility] of tablet 00:00: mouth at [place] 00 bedtime. Medical Branch methocarbam 2021-07 Yes [id number] 500mg Take 1 [facility] oL 500 mg 0-06 tablet by [facility] o f tablet 00:00: mouth 00 (four) Medical times Branch daily as needed (muscle spasms). ibuprofen 2021-07 Yes [id number] 600mg Take 1 [facility] 600 mg 0-06 tablet by [facility] of tablet 00:00: mouth [place] 00 every 6 Medical (six) Branch hours as needed for Pain (scale 4-6). acetaminoph 2021-07 Yes [id number] 1000mg Take 2 [facility] en 500 mg 0-06 tablets by [facility] of tablet 00:00: mouth [place] 00 every 8 Medical (eight) Branch hours as needed for Pain. traZODone 2021-07 Yes 50mg Take 1 [facility] 50 mg 0-06 tablet by [facility] of tablet 00:00: mouth at [place] 00 bedtime. Medical Branch methocarbam 2021-07 Yes [id number] 500mg Take 1 [facility] oL 500 mg 0-06 tablet by [facility] o f tablet 00:00: mouth 4 00 (four) Medical times Branch daily as needed (muscle spasms). ibuprofen 2021-07 Yes [id number] 600mg Take 1 [facility] 600 mg 0-06 tablet by [facility] of tablet 00:00: mouth [place] 00 every 6 Medical (six) Branch hours as needed for Pain (scale 4-6). acetaminoph 2021-07 Yes [id number] 1000mg Take 2 [facility] en 500 mg 0-06 tablets by [facility] of tablet 00:00: mouth [place] 00 every 8 Medical (eight) Branch hours as needed for Pain. traZODone 2021-07 Yes 50mg Take 1 [facility] 50 mg 0-06 tablet by [facility] of tablet 00:00: mouth at [place] 00 bedtime. Medical Branch methocarbam 2021-07 Yes [id number] 500mg Take 1 [facility] oL 500 mg 0-06 tablet by [facility] o f tablet 00:00: mouth 4 [place] 00 (four) Medical times Branch daily as needed (muscle spasms). ibuprofen 2021-07 Yes [id number] 600mg Take 1 [facility] 600 mg 0-06 tablet by [facility] of tablet 00:00: mouth [place] 00 every 6 Medical (six) Branch hours as needed for Pain (scale 4-6). acetaminoph 2021-07 Yes [id number] 1000mg Take 2 [facility] en 500 mg 0-06 tablets by [facility] of tablet 00:00: mouth [place] 00 every 8 Medical (eight) Branch hours as needed for Pain. traZODone 2021-07 Yes 50mg Take 1 [facility] 50 mg 0-06 tablet by [facility] of tablet 00:00: mouth at [place] 00 bedtime. Medical Branch methocarbam 2021-07 Yes [id number] 500mg Take 1 [facility] oL 500 mg 0-06 tablet by [facility] o f tablet 00:00: mouth 4 00 (four) Medical times Branch daily as needed (muscle spasms). ibuprofen 2021-07 Yes [id number] 600mg Take 1 [facility] 600 mg 0-06 tablet by [facility] of tablet 00:00: mouth [place] 00 every 6 Medical (six) Branch hours as needed for Pain (scale 4-6). acetaminoph 2021-07 Yes [id number] 1000mg Take 2 [facility] en 500 mg 0-06 tablets by [facility] of tablet 00:00: mouth [place] 00 every 8 Medical (eight) Branch hours as needed for Pain. traZODone 2021-07 Yes 50mg Take 1 [facility] 50 mg 0-06 tablet by [facility] of tablet 00:00: mouth at [place] 00 bedtime. Medical Branch methocarbam 2021-07 Yes [id number] 500mg Take 1 [facility] oL 500 mg 0-06 tablet by [facility] o f tablet 00:00: mouth 4 [place] 00 (four) Medical times Branch daily as needed (muscle spasms). ibuprofen 2021-07 Yes [id number] 600mg Take 1 [facility] 600 mg 0-06 tablet by [facility] of tablet 00:00: mouth [place] 00 every 6 Medical (six) Branch hours as needed for Pain (scale 4-6). acetaminoph 2021-07 Yes [id number] 1000mg Take 2 [facility] en 500 mg 0-06 tablets by [facility] of tablet 00:00: mouth [place] 00 every 8 Medical (eight) Branch hours as needed for Pain. traZODone 2021-07 Yes 50mg Take 1 [facility] 50 mg 0-06 tablet by [facility] of tablet 00:00: mouth at [place] 00 bedtime. Medical Branch methocarbam 2021-07 Yes [id number] 500mg Take 1 [facility] oL 500 mg 0-06 tablet by [facility] o f tablet 00:00: mouth (four) Medical times Branch daily as needed (muscle spasms). ibuprofen 2021-07 Yes [id number] 600mg Take 1 [facility] 600 mg 0-06 tablet by [facility] of tablet 00:00: mouth [place] 00 every 6 Medical (six) Branch hours as needed for Pain (scale 4-6). acetaminoph 2021-07 Yes [id number] 1000mg Take 2 [facility] en 500 mg 0-06 tablets by [facility] of tablet 00:00: mouth [place] 00 every 8 Medical (eight) Branch hours as needed for Pain. traZODone 2021-07 Yes 50mg Take 1 [facility] 50 mg 0-06 tablet by [facility] of tablet 00:00: mouth at [place] 00 bedtime. Medical Branch methocarbam 2021-07 Yes [id number] 500mg Take 1 [facility] oL 500 mg 0-06 tablet by [facility] o f tablet 00:00: mouth 00 (four) Medical times Branch daily as needed (muscle spasms). ibuprofen 2021-07 Yes [id number] 600mg Take 1 [facility] 600 mg 0-06 tablet by [facility] of tablet 00:00: mouth [place] 00 every 6 Medical (six) Branch hours as needed for Pain (scale 4-6). acetaminoph 2021-07 Yes [id number] 1000mg Take 2 [facility] en 500 mg 0-06 tablets by [facility] of tablet 00:00: mouth [place] 00 every 8 Medical (eight) Branch hours as needed for Pain. traZODone 2021-07 Yes 50mg Take 1 [facility] 50 mg 0-06 tablet by [facility] of tablet 00:00: mouth at [place] 00 bedtime. Medical Branch methocarbam 2021-07 Yes [id number] 500mg Take 1 [facility] oL 500 mg 0-06 tablet by [facility] o f tablet 00:00: mouth 4 [place] 00 (four) Medical times Branch daily as needed (muscle spasms). ibuprofen 2021-07 Yes [id number] 600mg Take 1 [facility] 600 mg 0-06 tablet by [facility] of tablet 00:00: mouth [place] 00 every 6 Medical (six) Branch hours as needed for Pain (scale 4-6). acetaminoph 2021-07 Yes [id number] 1000mg Take 2 [facility] en 500 mg 0-06 tablets by [facility] of tablet 00:00: mouth [place] 00 every 8 Medical (eight) Branch hours as needed for Pain. traZODone 2021-07 Yes 50mg Take 1 [facility] 50 mg 0-06 tablet by [facility] of tablet 00:00: mouth at [place] 00 bedtime. Medical Branch methocarbam 2021-07 Yes [id number] 500mg Take 1 [facility] oL 500 mg 0-06 tablet by [facility] o f tablet 00:00: mouth (four) Medical times Branch daily as needed (muscle spasms). ibuprofen 2021-07 Yes [id number] 600mg Take 1 [facility] 600 mg 0-06 tablet by [facility] of tablet 00:00: mouth [place] 00 every 6 Medical (six) Branch hours as needed for Pain (scale 4-6). acetaminoph 2021-07 Yes [id number] 1000mg Take 2 [facility] 500 mg 0-06 tablets by [facility] of tablet 00:00: mouth [place] 00 every 8 Medical (eight) Branch hours as needed for Pain. traZODone 2021-07 Yes 50mg Take 1 [facility] 50 mg 0-06 tablet by [facility] of tablet 00:00: mouth at [place] 00 bedtime. Medical Branch methocarbam 2021-07 Yes [id number] 500mg Take 1 [facility] oL 500 mg 0-06 tablet by [facility] o f tablet 00:00: mouth 4 00 (four) Medical times Branch daily as needed (muscle spasms). ibuprofen 2021-07 Yes [id number] 600mg Take 1 [facility] 600 mg 0-06 tablet by [facility] of tablet 00:00: mouth [place] 00 every 6 Medical (six) Branch hours as needed for Pain (scale 4-6). acetaminoph 2021-07 Yes [id number] 1000mg Take 2 [facility] en 500 mg 0-06 tablets by [facility] of tablet 00:00: mouth [place] 00 every 8 Medical (eight) Branch hours as needed for Pain. traZODone 2021-07 Yes 50mg Take 1 [facility] 50 mg 0-06 tablet by [facility] of tablet 00:00: mouth at [place] 00 bedtime. Medical Branch methocarbam 2021-07 Yes [id number] 500mg Take 1 [facility] oL 500 mg 0-06 tablet by [facility] o f tablet 00:00: mouth 00 (four) Medical times Branch daily as needed (muscle spasms). ibuprofen 2021-07 Yes [id number] 600mg Take 1 [facility] 600 mg 0-06 tablet by [facility] of tablet 00:00: mouth [place] 00 every 6 Medical (six) Branch hours as needed for Pain (scale 4-6). acetaminoph 2021-07 Yes [id number] 1000mg Take 2 [facility] 500 mg 0-06 tablets by [facility] of tablet 00:00: mouth [place] 00 every 8 Medical (eight) Branch hours as needed for Pain. traZODone 2021-07 Yes 50mg Take 1 [facility] 50 mg 0-06 tablet by [facility] of tablet 00:00: mouth at [place] 00 bedtime. Medical Branch methocarbam 2021-07 Yes [id number] 500mg Take 1 [facility] oL 500 mg 0-06 tablet by [facility] o f tablet 00:00: mouth 4 00 (four) Medical times Branch daily as needed (muscle spasms). ibuprofen 2021-07 Yes [id number] 600mg Take 1 [facility] 600 mg 0-06 tablet by ity of tablet 00:00: mouth [place] 00 every 6 Medical (six) Branch hours as needed for Pain (scale 4-6). acetaminoph 2021-07 Yes [id number] 1000mg Take 2 [facility] en 500 mg 0-06 tablets by ity of tablet 00:00: mouth [place] 00 every 8 Medical (eight) Branch hours as needed for Pain. traZODone 2021-07 Yes 50mg Take 1 [facility] s 50 mg 0-06 tablet by ity of tablet 00:00: mouth at [place] 00 bedtime. Medical Branch methocarbam 2021-07 Yes [id number] 500mg Take 1 [facility] oL 500 mg 0-06 tablet by ity o f tablet 00:00: mouth 4 [place] 00 (four) Medical times Branch daily as needed (muscle spasms). ibuprofen 2021-07 Yes [id number] 600mg Take 1 [facility] 600 mg 0-06 tablet by ity of tablet 00:00: mouth [place] 00 every 6 Medical (six) Branch hours as needed for Pain (scale 4-6). acetaminoph 2021-07- No [id number] 1000mg Take 2 [facility] en 500 mg 0-06 11-29 tablets by ity of tablet 00:00: 00:00 mouth [place] 00 :00 every 8 Medical (eight) Branch hours as needed for Pain. traZODone 2021-07- No 50mg Take 1 Un[facility] rs 50 mg 0-06 11-29 tablet by ity of tablet 00:00: 00:00 mouth at [place] 00 :00 bedtime. Medical Branch methocarbam 2021-07- No [id number] 500mg Take 1 [facility] oL 500 mg 0-06 11-29 tablet by ity of tablet 00:00: 00:00 mouth 4 [place] 00 :00 (four) Medical times Branch daily as needed (muscle spasms). ibuprofen 2021-07- No [id number] 600mg Take 1 [facility] 600 mg 0-06 11-29 tablet by ity of tablet 00:00: 00:00 mouth [place] 00 :00 every 6 Medical (six) Branch hours as needed for Pain (scale 4-6). acetaminoph 2021-07- No [id number] 1000mg Take 2 [facility] en 500 mg 0-06 11-29 tablets by ity of tablet 00:00: 00:00 mouth [place] 00 :00 every 8 Medical (eight) Branch hours as needed for Pain. traZODone 2021-07- No 50mg Take 1 [facility] rs 50 mg 0-06 11-29 tablet by ity of tablet 00:00: 00:00 mouth at [place] 00 :00 bedtime. Medical Branch methocarbam 2021-07- No [id number] 500mg Take 1 [facility] oL 500 mg 0-06 11-29 tablet by ity of tablet 00:00: 00:00 mouth 4 [place] 00 :00 (four) Medical times Branch daily as needed (muscle spasms). ibuprofen 2021-07- No [id number] 600mg Take 1 [facility] 600 mg 0-06 11-29 tablet by ity of tablet 00:00: 00:00 mouth [place] 00 :00 every 6 Medical (six) Branch hours as needed for Pain (scale 4-6). acetaminoph 2021-07- No [id number] 1000mg Take 2 [facility] en 500 mg 0-06 11-29 tablets by ity of tablet 00:00: 00:00 mouth [place] 00 :00 every 8 Medical (eight) Branch hours as needed for Pain. traZODone 2021-07- No 50mg Take 1 [facility] rs 50 mg 0-06 -29 tablet by ity of tablet 00:00: 00:00 mouth at [place] 00 :00 bedtime. Medical Branch methocarbam 2021-07- No [id number] 500mg Take 1 [facility] oL 500 mg 0-12 11-29 tablet by ity of tablet 00:00: 00:00 mouth 4 [place] 00 :00 (four) Medical times Branch daily as needed (muscle spasms). ibuprofen 2021-07- No [id number] 600mg Take 1 [facility] 600 mg 0-06 11-29 tablet by ity of tablet 00:00: 00:00 mouth [place] 00 :00 every 6 Medical (six) Branch hours as needed for Pain (scale 4-6). acetaminoph 2021-07- No [id number] 1000mg Take 2 [facility] en 500 mg 0-06 -29 tablets by ity of tablet 00:00: 00:00 mouth [place] 00 :00 every 8 Medical (eight) Branch hours as needed for Pain. traZODone 2021-07- No 50mg Take 1 [facility] rs 50 mg 0-06 11-29 tablet by ity of tablet 00:00: 00:00 mouth at [place] 00 :00 bedtime. Medical Branch methocarbam 2021-07- No [id number] 500mg Take 1 [facility] oL 500 mg 0-06 11-29 tablet by ity of tablet 00:00: 00:00 mouth 4 [place] 00 :00 (four) Medical times Branch daily as needed (muscle spasms). ibuprofen 2021-07- No [id number] 600mg Take 1 [facility] 600 mg 0-06 11-29 tablet by ity of tablet 00:00: 00:00 mouth [place] 00 :00 every 6 Medical (six) Branch hours as needed for Pain (scale 4-6). acetaminoph 2021-07- No [id number] 1000mg Take 2 [facility] en 500 mg 0-06 11-29 tablets by ity of tablet 00:00: 00:00 mouth [place] 00 :00 every 8 Medical (eight) Branch hours as needed for Pain. traZODone 2021-07- No 50mg Take 1 [facility] rs 50 mg 0-06 11-29 tablet by ity of tablet 00:00: 00:00 mouth at [place] 00 :00 bedtime. Medical Branch methocarbam 2021-07- No [id number] 500mg Take 1 [facility] oL 500 mg 0-06 11-29 tablet by ity of tablet 00:00: 00:00 mouth 4 [place] 00 :00 (four) Medical times Branch daily as needed (muscle spasms). ibuprofen 2021-07- No [id number] 600mg Take 1 [facility] 600 mg 0-06 11-29 tablet by ity of tablet 00:00: 00:00 mouth [place] 00 :00 every 6 Medical (six) Branch hours as needed for Pain (scale 4-6). acetaminoph 2021-07- No [id number] 1000mg Take 2 [facility] en 500 mg 0-06 11-29 tablets by ity of tablet 00:00: 00:00 mouth [place] 00 :00 every 8 Medical (eight) Branch hours as needed for Pain. traZODone 2021-07- No 50mg Take 1 [facility] rs 50 mg 0-06 11-29 tablet by ity of tablet 00:00: 00:00 mouth at [place] 00 :00 bedtime. Medical Branch methocarbam 2021-07- No [id number] 500mg Take 1 [facility] oL 500 mg 0-06 11-29 tablet by ity of tablet 00:00: 00:00 mouth 4 [place] 00 :00 (four) Medical times Branch daily as needed (muscle spasms). ibuprofen 2021-07- No [id number] 600mg Take 1 [facility] 600 mg 0-06 [...] 04/06/22 at 1145, Until Discontinu ed, Routine
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 Restricted medication : KEAGAN LUO celecoxib [...] on Mon Medical 1,000 mg 04/06/22 at [facility] h 1015, Until Discontinu ed, Routine tamsulosin [...] 00 mon Medical 1,000 mg 04/06/22 at [facility] h 0800, Until Discontinu ed, Routine enoxaparin [...] mg 51 :08 Starting Medical on Mon [place] 04/04/22 at 1822, Until Mon04/05/22 at 0914, Routine, Pain (scale 7-10) HYDROcodone 2021-07 No 1{tbl} 1 tablet, Univers -acetaminop 0-03 10-04 Oral, ity of hen (NORCO 23:22: 14:14 Q6HPRN, [place] 5) 5-325 mg 51 :08 Starting Medi [place] tablet 1 on Mon [place] tablet 04/04/22 at 1822, Until Mon04/05/22 at 0914, Routine, Pain (scale 4-6) FENTanyl PF 2021-07 No 50ug 50 mcg, Un [place] (SUBLIMAZE 0-03 10-03 Slow IV ity o f (PF)) 22:00: 21:05 Push, [place] injection 00 :00 ONCE, 1 Medical 50 mcg dose, On [place] Mon04/04/22 at 1700, Routine FENTanyl PF 2021-07 No 50ug 50 mcg, Un [place] (SUBLIMAZE 0-03 10-03 Slow IV ity o f (PF)) 20:30: 19:32 Push, [place] injection 00 :00 ONCE, 1 Medical 50 mcg dose, On [place] Mon04/04/22 at 1530, Routine ondansetron 2021-07 No 4mg 4 mg, Slow [facility] (ZOFRAN 0- 10- IV Push, ity of (PF)) 19:45: 19:32 ONCE, 1 [place] injection 4 00 :00 dose, On Medi torito mg Mon Branch 04/04/22 at 1445, ARLEN iopamidol 2021-07- No [id number] 80mL 80 mL, Univers (ISOVUE 004-04 Intravenou [...] Branch 03/31/22 at 2315, ARLEN ARIPiprazol Yes [id number] 300mg 300 mg by Univers e (ABILIFY 9-15 Intramuscu ity of [facility]) 00:00: lar route [place] 300 mg sers 00 once every Me dical month. Branch ARIPiprazol 0 Yes 300mg 300 mg by Univers e (ABILIFY 9-15 Intramuscu ity of [facility]) 00:00: lar route [place] 300 mg sers 00 once every Me dical month. Branch ARIPiprazol 2021-0 Yes [id number] 300mg 300 mg by Univers e (ABILIFY 9-15 Intramuscu ity of [facility]) 00:00: lar route [place] 300 mg sers 00 once every Me dical month. Branch ARIPiprazol 2021-0 Yes 300mg 300 mg by Univers e (ABILIFY 9-15 Intramuscu ity of [facility]) 00:00: lar route [place] 300 mg sers 00 once every Me dical month. Branch ARIPiprazol 2-0 Yes [id number] 300mg 300 mg by Univers e (ABILIFY 9-15 Intramuscu ity of [facility]) 00:00: lar route [place] 300 mg sers 00 once every Me dical month. Branch ARIPiprazol 2-0 Yes 300mg 300 mg by Univers e (ABILIFY 9-15 Intramuscu ity of [facility]) 00:00: lar route [place] 300 mg sers 00 once every Me dical month. Branch ARIPiprazol 2-0 Yes [id number] 300mg 300 mg by Univers e (ABILIFY 9-15 Intramuscu ity of [facility]) 00:00: lar route [place] 300 mg sers 00 once every Me dical month. Branch ARIPiprazol 2-0 Yes 300mg 300 mg by Univers e (ABILIFY 9-15 Intramuscu ity of [facility]) 00:00: lar route [place] 300 mg sers 00 once every Me dical month. Branch ARIPiprazol 2-0 Yes [id number] 300mg 300 mg by Univers e (ABILIFY 9-15 Intramuscu ity of [facility]) 00:00: lar route [place] 300 mg sers 00 once every Me dical month. Branch ARIPiprazol 2-0 Yes 300mg 300 mg by Univers e (ABILIFY 9-15 Intramuscu ity of [facility]) 00:00: lar route [place] 300 mg sers 00 once every Me dical month. Branch ARIPiprazol 2-0 Yes [id number] 300mg 300 mg by Univers e (ABILIFY 9-15 Intramuscu ity of [facility]) 00:00: lar route [place] 300 mg sers 00 once every Me dical month. Branch ARIPiprazol 2-0 Yes 300mg 300 mg by Univers e (ABILIFY 9-15 Intramuscu ity of [facility]) 00:00: lar route [place] 300 mg sers 00 once every Me dical month. Branch ARIPiprazol 2022-0 Yes [id number] 300mg 300 mg by Univers e (ABILIFY 9-15 Intramuscu ity of [facility]) 00:00: lar route [place] 300 mg sers 00 once every Me dical month. Branch ARIPiprazol 2021-0 Yes 300mg 300 mg by Univers e (ABILIFY 9-15 Intramuscu ity of [facility]) 00:00: lar route [place] 300 mg sers 00 once every Me dical month. Branch ARIPiprazol 2021-0 Yes [id number] 300mg 300 mg by Univers e (ABILIFY 9-15 Intramuscu ity of [facility]) 00:00: lar route [place] 300 mg sers 00 once every Me dical month. Branch ARIPiprazol 2021-0 Yes [id number] 300mg 300 mg by Univers e (ABILIFY 9-15 Intramuscu ity of [facility]) 00:00: lar route [place] 300 mg sers 00 once every Me dical month. Branch ARIPiprazol 2021-0 Yes [id number] 300mg 300 mg by Univers e (ABILIFY 9-15 Intramuscu ity of [facility]) 00:00: lar route [place] 300 mg sers 00 once every Me dical month. Branch ARIPiprazol 2021-0 Yes [id number] 300mg 300 mg by Univers e (ABILIFY 9-15 Intr[facility]cu ity of [facility]) 00:00: lar route [place] 300 mg sers 00 once every Me dical month. Branch ARIPiprazol 2021-0 Yes [id number] 300mg 300 mg by Univers e (ABILIFY 9-15 Intramuscu ity of [facility]) 00:00: lar route [place] 300 mg sers 00 once every Me dical month. Branch ARIPiprazol 2021-0 Yes [id number] 300mg 300 mg by Univers e (ABILIFY [...] e (ABILIFY 03-17 [facility] 00:[facility]: 00:00 lar route [place] 300 mg sers 00 :00 once every Me dical month. Branch ARIPiprazol 2021-0 2022- No 300mg 300 mg by Univers e (ABILIFY 03-17 [facility] 00:00: 00:00 lar route [place] 300 mg sers 00 :00 once every Me dical month. Branch ARIPiprazol 2021-0 2022- No 300mg 300 mg by Univers e (ABILIFY 03-17 Intramuscu it y of [facility]) 00:00: 00:00 lar route [place] 300 mg sers 00 :00 once every Me dical month. Branch ARIPiprazol 2021-0 2022- No 300mg 300 mg by Univers e (ABILIFY 03-17 [facility] 00:00: 00:00 lar route [place] 300 mg sers 00 :00 once every Me dical month. Branch ARIPiprazol 2021-0 2- No 300mg 300 mg by Univers e (ABILIY 03-17 [facility] 00:00: 00:00 lar route [place] 300 mg sers 00 :00 once every Me dical month. Branch ARIPiprazol 2-0 2022- No 300mg 300 mg by Univers e (ABILIFY 03-17 [facility] 00:00: 00:00 lar route [place] 300 mg sers 00 :00 once every Me dical month. Branch ARIPiprazol 2-0 2022- No 300mg 300 mg by Univers e (ABILIFY 03-17 [facility] 00:00: 00:00 lar route [place] 300 [...] 03-17 Intramuscu it y of [facility]) 00:00: 00:00 lar route [place] 300 mg sers 00 :00 once every Me dical month. Branch ARIPiprazol 2021- No 300mg 300 mg by Univers e (ABILIFY 03-17 Intramuscu it y [facility]) 00:00: 00:00 lar route [place] 300 mg sers 00 :00 once every Me dical month. Branch ARIPiprazol 2021- No [id number] 10mg Take 1 U nivers e 10 mg 9-08 10-09 tablet by ity of tablet 00:00: 04:59 mouth in [place] 00 :00 the Medical morning [place] for 30 days. ARIPiprazol 2021- No [id number] 10mg Take 1 U nivers e 10 mg 9-08 10-09 tablet by ity of tablet 00:00: 04:59 mouth in [place] 00 :00 the [facility] morning [place] for 30 days. ARIPiprazol 2021-2021- No [id number] 10mg Take 1 U nivers e 10 mg 9-08 10-09 tablet by ity of tablet 00:00: 04:59 mouth in [place] 00 :00 the [facility] morning [place] for 30 days. ARIPiprazol 2021-2021- No [id number] 10mg Take 1 U nivers e 10 mg 9-08 10-09 tablet by ity of tablet 00:00: 04:59 mouth in [place] 00 :00 the [facility] morning [place] for 30 days. ARIPiprazol 2021-2021- No [id number] 10mg Take 1 U nivers e 10 mg 9-08 10-09 tablet by ity of tablet 00:00: 04:59 mouth in [place] 00 :00 the [facility] for 30 days. ARIPiprazol 2021-2021- No [id number] 10mg Take 1 U nivers e 10 mg 9-08 10-09 tablet by ity of tablet 00:00: 04:59 mouth in [place] 00 :00 [facility] for 30 days. ARIPiprazol 2021-2- No [id number] 10mg Take 1 U nivers e 10 mg 9-08 10-09 tablet by ity of tablet 00:00: 04:59 mouth in [place] 00 :00 the [facility] for 30 days. ARIPiprazol 2021-2- No [id number] 10mg Take 1 U nivers e 10 mg 9-08 10-09 tablet by ity of tablet 00:00: 04:59 mouth in [place] 00 :00 the [facility] for 30 days. ARIPiprazol 2021-2- No [id number] 10mg Take 1 U nivers e 10 mg 9-08 10-09 tablet by ity of tablet 00:00: 04:59 mouth in [place] 00 :00 the [facility] for 30 days. ARIPiprazol 2021-2- No [id number] 10mg Take 1 U nivers e 10 mg 9-08 10-09 tablet by ity of tablet 00:00: 04:59 mouth in [place] 00 :00 [facility] for 30 days. ARIPiprazol 2021-2021- No [id number] 10mg Take 1 U nivers e 10 mg 9-08 10-09 tablet by ity of tablet 00:00: 04:59 mouth in [place] 00 :00 [facility] for 30 days. ARIPiprazol 2021-2021- No [id number] 10mg Take 1 U nivers e 10 mg 9-08 10-09 tablet by ity of tablet 00:00: 04:59 mouth in [place] 00 :00 [facility] for 30 days. ARIPiprazol 2021-0 2- No [id number] 10mg Take 1 U nivers e 10 mg 9-08 10-09 tablet by ity of tablet 00:00: 04:59 mouth in [place] 00 :00 [facility] for 30 days. ARIPiprazol 2021-0 2- No [id number] 10mg Take 1 U nivers e 10 mg 9-08 10-09 tablet by ity of tablet 00:00: 04:59 mouth in [place] 00 :00 [facility] for 30 days. ARIPiprazol 2021-0 2- No [id number] 10mg Take 1 U nivers e 10 mg 9-08 10-09 tablet by ity of tablet 00:00: 04:59 mouth in [place] 00 :00 the [facility] morning Branch for 30 days. ARIPiprazol 2021- No [id number] 10mg Take 1 U nivers e 10 mg 9-08 10-09 tablet by ity of tablet 00:00: 04:59 mouth in [place] 00 :00 the [facility] morning Branch for 30 days. ARIPiprazol 2021- No [id number] 10mg Take 1 U nivers e 10 mg 9-08 10-09 tablet by ity of tablet 00:00: 04:59 mouth in [place] 00 :00 the [facility] morning Branch for 30 days. ARIPiprazol 2021- No [id number] 10mg Take 1 U nivers e 10 mg 9-08 10-09 tablet by ity of tablet 00:00: 04:59 mouth in [place] 00 :00 the [facility] morning Branch for 30 days. ARIPiprazol 2021- No [id number] 10mg Take 1 U nivers e 10 mg 9-08 10-09 tablet by ity of tablet 00:00: 04:59 mouth in [place] 00 :00 the [facility] morning [place] for 30 days. ARIPiprazol 2021- No [id number] 10mg Take 1 U nivers e 10 mg 9-08 10-09 tablet by ity of tablet 00:00: 04:59 mouth in [place] 00 :00 the [facility] morning Branch for 30 days. ARIPiprazol 2021- No [id number] 10mg Take 1 U nivers e 10 mg 9-08 10-09 tablet by ity of tablet 00:00: 04:59 mouth in [place] 00 :00 the [facility] morning [place] for 30 days. ARIPiprazol 2021- No [id number] 10mg Take 1 U nivers e 10 mg 9-08 10-09 tablet by ity of tablet 00:00: 04:59 mouth in [place] 00 :00 the [facility] morning Branch for 30 days. ARIPiprazol 2021- No [id number] 10mg Take 1 U nivers e 10 mg 9-08 10-09 tablet by ity of tablet 00:00: 04:59 mouth in [place] 00 :00 the [facility] for 30 days. ARIPiprazol 2021-2021- No [id number] 10mg Take 1 U nivers e 10 mg 9-08 10-09 tablet by ity of tablet 00:00: 04:59 mouth in [place] 00 :00 the [facility] for 30 days. ARIPiprazol 2021-2- No [id number] 10mg Take 1 U nivers e 10 mg 9-08 10-09 tablet by ity of tablet 00:00: 04:59 mouth in [place] 00 :00 the [facility] for 30 days. ARIPiprazol 2021-2021- No [id number] 10mg Take 1 U nivers e 10 mg 9-08 10-09 tablet by ity of tablet 00:00: 04:59 mouth in [place] 00 :00 the [facility] for 30 days. ARIPiprazol 2021-2021- No [id number] 10mg Take 1 U nivers e 10 mg 9-08 10-09 tablet by ity of tablet 00:00: 04:59 mouth in [place] 00 :00 the [facility] for 30 days. ARIPiprazol 2021-2021- No [id number] 10mg Take 1 U nivers e 10 mg 9-08 10-09 tablet by ity of tablet 00:00: 04:59 mouth in [place] 00 :00 the [facility] for 30 days. ARIPiprazol 2021-2021- No [id number] 300mg 300 mg by Univers e (ABILIF03-09 [facility] 00:00: 05:59 lar route [place] 300 mg sers 00 :00 once every Me dical month for Branch 90 days. ARIPiprazol 2021-2021- No [id number] 300mg 300 mg by Univers e (ABILIFY 03-09 Intramuscu it y of [facility]) 00:00: 00:00 lar route [place] 300 mg sers 00 :00 once every Me dical month for Branch 90 days. ARIPiprazol 2021-2021- No [id number] 300mg 300 mg by Univers e (ABILIFY 03-09 Intramuscu it y of [facility]) 00:00: 00:00 lar route [place] 300 mg sers 00 :00 once every Me dical month for Branch 90 days. ARIPiprazol 2021-2- No [id number] 300mg 300 mg by Univers e ([facility] Intr[facility] it y of [facility]) 00:00: 00:00 lar route [place] 300 mg sers 00 :00 once every Me dical month for Branch 90 days. ARIPiprazol 2021-2021- No [id number] 300mg 300 mg by Univers e ([facility] it y of [facility]) 00:00: 00:00 lar route [place] 300 mg sers 00 :00 once every Me dical month for Branch 90 days. ARIPiprazol 2021-2021- No [id number] 300mg 300 mg by Univers e ([facility] Intr[facility] y [facility]) 00:00: 00:00 lar route [place] 300 mg sers 00 :00 once every Me dical month for Branch 90 days. QUEtiapine 2021-2021- No [id number] 50mg Take 1 Un [place] 50 mg 7-18 09-08 tablet by ity of tablet 00:00: 00:00 mouth in [place] 00 :00 the Medical morning Branch and 1 tablet in the evening. Do all this for 60 days. QUEtiapine 2021-2- No [id number] 50mg Take 1 Un [place] 50 mg 7-18 09-08 tablet by ity of tablet 00:00: 00:00 mouth in [place] 00 :00 the Medical morning Branch and 1 tablet in the evening. Do all this for 60 days. QUEtiapine 2021-0 2- No [id number] 50mg Take 1 Un [place] 50 mg 7-18 09-08 tablet by ity of tablet 00:00: 00:00 mouth in [place] 00 :00 the Medical morning Branch and 1 tablet in the evening. Do all this for 60 days. QUEtiapine 2021-0 2- No [id number] 50mg Take 1 Un [place] 50 mg 7-18 09-08 tablet by ity of tablet 00:00: 00:00 mouth in [place] 00 :00 the Medical morning Branch and 1 tablet in the evening. Do all this for 60 days. QUEtiapine 2021- No [id number] 50mg Take 1 Un [place] 50 mg 01-17 tablet by ity of tablet 00:00: 00:00 mouth in [place] 00 :00 the Medical morning Branch and 1 tablet in the evening. Do all this for 60 days. lithium 2021- No [id number] 300mg Take 1 U nivers carbonate 12-07 tablet by ity of CR 300 mg 00:00: 04:59 mouth at [place] SR tablet 00 :00 bedtime Medical for 90 Branch days. lithium No [id number] 450mg Take 1 U nivers carbonate 12-07 tablet by ity of CR 450 mg 00:00: 04:59 mouth [place] SR tablet 00 :00 every Medical morning Branch for 90 days. lithium No [id number] 300mg Take 1 U nivers carbonate 12-07 tablet by ity of CR 300 mg 00:00: 04:59 mouth at [place] SR tablet 00 :00 bedtime Medical for 90 Branch days. lithium No [id number] 450mg Take 1 U nivers carbonate 12-07 tablet by ity of CR 450 mg 00:00: 04:59 mouth [place] SR tablet 00 :00 every Medical morning Branch for 90 days. lithium No [id number] 300mg Take 1 U nivers carbonate 12-07 tablet by ity of CR 300 mg 00:00: 04:59 mouth at [place] SR tablet 00 :00 bedtime Medical for 90 Branch days. lithium No [id number] 450mg Take 1 U nivers carbonate 12-07 tablet by ity of CR 450 mg 00:00: 04:59 mouth [place] SR tablet 00 :00 every Medical morning Branch for 90 days. lithium No [id number] 300mg Take 1 U nivers carbonate 12-07 tablet by ity of CR 300 mg 00:00: 04:59 mouth at [place] SR tablet 00 :00 bedtime Medical for 90 Branch days. lithium 2021- No [id number] 450mg Take 1 U nivers carbonate 12-07 tablet by ity of CR 450 mg 00:00: 04:59 mouth [place] SR tablet 00 :00 every Medical morning Branch for 90 days. lithium 2021- No [id number] 300mg Take 1 U nivers carbonate 12-07 tablet by ity of CR 300 mg 00:00: 04:59 mouth at [place] SR tablet 00 :00 bedtime Medical for 90 Branch days. lithium 2021- No [id number] 450mg Take 1 U nivers carbonate 12-07 tablet by ity of CR 450 mg 00:00: 04:59 mouth [place] SR tablet 00 :00 every Medical morning Branch for 90 days. miSOPROStoL Yes [id number] 200ug Take 1 Univers 200 mcg 4-29 tablet by ity of tablet 00:00: SEE-INSTRU Medical CTIONS. Branch Take one tab the night before and one tab the morning of procedure miSOPROStoL Yes [id number] 200ug Take 1 [facility] 200 mcg 4-29 tablet by ity of tablet 00:00: mouth SEE-INSTRU Medical CTIONS. Branch Take one tab the night before and one tab the morning of procedure miSOPROStoL Yes [id number] 200ug Take 1 [facility] 200 mcg 4-29 tablet by ity of tablet 00:00: mouth SEE-INSTRU Medical CTIONS. Branch Take one tab the night before and one tab the morning of procedure miSOPROStoL Yes [id number] 200ug Take 1 [facility] 200 mcg 4-29 tablet by ity of tablet 00:00: SEE-INSTRU Medical CTIONS. Branch Take one tab the night before and one tab the morning of procedure miSOPROStoL Yes [id number] 200ug Take 1 [facility] 200 mcg 4-29 tablet by ity of tablet 00:00: mouth SEE-INSTRU Medical CTIONS. Branch Take one tab the night before and one tab the morning of procedure miSOPROStoL 0 Yes [id number] 200ug Take 1 [facility] 200 mcg 4-29 tablet by ity of tablet 00:00: mouth SEE-INSTRU Medical CTIONS. Branch Take one tab the night before and one tab the morning of procedure miSOPROStoL Yes [id number] 200ug Take 1 [facility] 200 mcg 4-29 tablet by ity of tablet 00:00: mouth SEE-INSTRU Medical CTIONS. Branch Take one tab the night before and one tab the morning of procedure miSOPROStoL Yes [id number] 200ug Take 1 [facility] 200 mcg 4-29 tablet by ity of tablet 00:00: mouth SEE-INSTRU Medical CTIONS. Branch Take one tab the night before and one tab the morning of procedure miSOPROStoL Yes [id number] 200ug Take 1 [facility] 200 mcg 4-29 tablet by ity of tablet 00:00: mouth SEE-INSTRU Medical CTIONS. Branch Take one tab the night before and one tab the morning of procedure miSOPROStoL 2021- No [id number] 200ug Take 1 [facility] 200 mcg 4-29 10-06 tablet by ity of tablet 00:00: 00:00 [facility] 00 :00 SEE-INSTRU Medical CTIONS. Branch Take one tab the night before and one tab the morning of procedure miSOPROStoL 2021- No [id number] 200ug Take 1 [facility] 200 mcg 4-29 10-06 tablet by ity of tablet 00:00: 00:00 [facility] 00 :00 SEE-INSTRU Medical CTIONS. Branch Take one tab the night before and one tab the morning of procedure miSOPROStoL 2021- No [id number] 200ug Take 1 [facility] 200 mcg 4-29 10-06 tablet by ity of tablet 00:00: 00:00 [facility] 00 :00 SEE-INSTRU Medical CTIONS. Branch Take one tab the night before and one tab the morning of procedure miSOPROStoL 2021- No [id number] 200ug Take 1 [facility] 200 mcg 4-29 10-06 tablet by ity of tablet 00:00: 00:00 [facility] 00 :00 SEE-INSTRU Medical CTIONS. Branch Take one tab the night before and one tab the morning of procedure miSOPROStoL 2021- No [id number] 200ug Take 1 [facility] 200 mcg 4-29 10-06 tablet by ity of tablet 00:00: 00:00 [facility] 00 :00 SEE-INSTRU Medical CTIONS. Branch Take one tab the night before and one tab the morning of procedure miSOPROStoL 2021- No [id number] 200ug Take 1 [facility] 200 mcg 4-29 10-06 tablet by ity of tablet 00:00: 00:00 mouth [place] 00 :00 SEE-INSTRU Medical CTIONS. Branch Take one tab the night before and one tab the morning of procedure miSOPROStoL 2021- No [id number] 200ug Take 1 [facility] 200 mcg 4-29 10-06 tablet by ity of tablet 00:00: 00:00 mouth [place] 00 :00 SEE-INSTRU Medical CTIONS. Branch Take one tab the night before and one tab the morning of procedure miSOPROStoL 2021- No [id number] 200ug Take 1 [facility] 200 mcg 4-29 10-06 tablet by ity of tablet 00:00: 00:00 mouth [place] 00 :00 SEE-INSTRU Medical CTIONS. Branch Take one tab the night before and one tab the morning of procedure miSOPROStoL 2021- No [id number] 200ug Take 1 [facility] 200 mcg 4-29 10-06 tablet by ity of tablet 00:00: 00:00 mouth [place] 00 :00 SEE-INSTRU Medical CTIONS. Branch Take one tab the night before and one tab the morning of procedure miSOPROStoL 2021- No [id number] 200ug Take 1 [facility] 200 mcg 4-29 10-06 tablet by ity of tablet 00:00: 00:00 mouth [place] 00 :00 SEE-INSTRU Medical CTIONS. Branch Take one tab the night before and one tab the morning of procedure miSOPROStoL 2021- No [id number] 200ug Take 1 [facility] 200 mcg 4-29 10-06 tablet by ity of tablet 00:00: 00:00 mouth [place] 00 :00 SEE-INSTRU Medical CTIONS. Branch Take one tab the night before and one tab the morning of procedure miSOPROStoL 2021- No [id number] 200ug Take 1 [facility] 200 mcg 4-29 10-06 tablet by ity of tablet 00:00: 00:00 mouth [place] 00 :00 SEE-INSTRU Medical CTIONS. Branch Take one tab the night before and one tab the morning of procedure miSOPROStoL 2021- No [id number] 200ug Take 1 [facility] 200 mcg 4-29 10-06 tablet by ity of tablet 00:00: 00:00 mouth [place] 00 :00 SEE-INSTRU Medical CTIONS. Branch Take one tab the night before and one tab the morning of procedure miSOPROStoL 2021- No [id number] 200ug Take 1 [facility] 200 mcg 4-29 10-06 tablet by ity of tablet 00:00: 00:00 [facility] [place] 00 :00 SEE-INSTRU Medical CTIONS. Branch Take one tab the night before and one tab the morning of procedure miSOPROStoL 2021- No [id number] 200ug Take 1 [facility] 200 mcg 4-29 10-06 tablet by ity of tablet 00:00: 00:00 [facility] [place] 00 :00 SEE-INSTRU Medical CTIONS. Branch Take one tab the night before and one tab the morning of procedure miSOPROStoL 2021- No [id number] 200ug Take 1 [facility] 200 mcg 4-29 10-06 tablet by ity of tablet 00:00: 00:00 [facility] 00 :00 SEE-INSTRU Medical CTIONS. Branch Take one tab the night before and one tab the morning of procedure miSOPROStoL 2021- No [id number] 200ug Take 1 [facility] 200 mcg 4-29 10-06 tablet by ity of tablet 00:00: 00:00 [facility] 00 :00 SEE-INSTRU Medical CTIONS. Branch Take one tab the night before and one tab the morning of procedure miSOPROStoL 2021- No [id number] 200ug Take 1 [facility] 200 mcg 4-29 10-06 tablet by ity of tablet 00:00: 00:00 [facility] 00 :00 SEE-INSTRU Medical CTIONS. Branch Take one tab the night before and one tab the morning of procedure Immunizations Ordered Immunization Filled Immunization Date Status Commen ts Source Name Name SARS-COV-2 COVID-2022-03-17 Completed [facility] of MIKE-SUCROSE VACCINE 00:00:00 [facility] 12 YRS+, BIVALENT Branch 0.3ML, IM, (PFIZER ARITA TOP BOOSTER) SARS-COV-2 COVID-19 2022-03-17 Completed [facility]ive rs[facility] of MIKE-SUCROSE VACCINE 00:00:00 [facility] 12 YRS+, BIVALENT Branch 0.3ML, IM, (PFIZER ARITA TOP BOOSTER) SARS-COV-2 COVID-19 2022-03-17 Completed [facility]ive [facility] of MIKE-SUCROSE VACCINE 00:00:00 [facility] 12 YRS+, BIVALENT Branch 0.3ML, IM, (PFIZER ARITA TOP BOOSTER) SARS-COV-2 COVID-19 2022-03-17 Completed [facility]ive [facility] of MIKE-SUCROSE VACCINE 00:00:00 [facility] 12 YRS+, BIVALENT Branch 0.3ML, IM, (PFIZER ARITA TOP BOOSTER) SARS-COV-2 COVID-19 2022-03-17 Completed Unive rsity of MIKE-SUCROSE VACCINE 00:00:00 [facility] 12 YRS+, BIVALENT Branch 0.3ML, IM, (PFIZER ARITA TOP BOOSTER) SARS-COV-2 COVID-19 2022-03-17 Completed Unive rsity of MIKE-SUCROSE VACCINE 00:00:00 [facility] 12 YRS+, BIVALENT Branch 0.3ML, IM, (PFIZER ARITA TOP BOOSTER) SARS-COV-2 COVID-19 2022-03-17 Completed Unive rsity of MIKE-SUCROSE VACCINE 00:00:00 [facility] 12 YRS+, BIVALENT Branch 0.3ML, IM, (PFIZER ARITA TOP BOOSTER) SARS-COV-2 COVID-19 2022-03-17 Completed Unive rsity of MIKE-SUCROSE VACCINE 00:00:00 [facility] 12 YRS+, BIVALENT Branch 0.3ML, IM, (PFIZER ARITA TOP BOOSTER) SARS-COV-2 COVID-19 2022-03-17 Completed Unive rs[facility] of MIKE-SUCROSE VACCINE 00:00:00 [facility] 12 YRS+, BIVALENT Branch 0.3ML, IM, (PFIZER ARITA TOP BOOSTER) SARS-COV-2 COVID-19 2022-03-17 Completed Unive [facility]ity of MIKE-SUCROSE VACCINE 00:00:00 [facility] 12 YRS+, BIVALENT Branch 0.3ML, IM, (PFIZER ARITA TOP BOOSTER) SARS-COV-2 COVID-19 2022-03-17 Completed Unive rsity of MIKE-SUCROSE VACCINE 00:00:00 [facility] 12 YRS+, BIVALENT Branch 0.3ML, IM, (PFIZER ARITA TOP BOOSTER) SARS-COV-2 COVID-19 2022-03-17 Completed Unive rsity of MIKE-SUCROSE VACCINE 00:00:00 [facility] 12 YRS+, BIVALENT Branch 0.3ML, IM, (PFIZER ARITA TOP BOOSTER) SARS-COV-2 COVID-19 2022-03-17 Completed Unive rsity of MIKE-SUCROSE VACCINE 00:00:00 [facility] 12 YRS+, BIVALENT Branch 0.3ML, IM, (PFIZER ARITA TOP BOOSTER) SARS-COV-2 COVID-19 2022-03-17 Completed Unive rsity of MIKE-SUCROSE VACCINE 00:00:00 [facility] 12 YRS+, BIVALENT Branch 0.3ML, IM, (PFIZER ARITA TOP BOOSTER) SARS-COV-2 COVID-19 2022-03-17 Completed Unive rsity of MIKE-SUCROSE VACCINE 00:00:00 [facility] 12 YRS+, BIVALENT Branch 0.3ML, IM, (PFIZER ARITA TOP BOOSTER) SARS-COV-2 COVID-19 2022-03-17 Completed Unive rsity of MIKE-SUCROSE VACCINE 00:00:00 [facility] 12 YRS+, BIVALENT Branch 0.3ML, IM, (PFIZER ARITA TOP BOOSTER) SARS-COV-2 COVID-19 2022-03-17 Completed Unive rsity of MIKE-SUCROSE VACCINE 00:00:00 [facility] 12 YRS+, BIVALENT Branch 0.3ML, IM, (PFIZER ARITA TOP BOOSTER) SARS-COV-2 COVID-19 2022-03-17 Completed Unive rsity of MIKE-SUCROSE VACCINE 00:00:00 [facility] 12 YRS+, BIVALENT Branch 0.3ML, IM, (PFIZER ARITA TOP BOOSTER) SARS-COV-2 COVID-19 2022-03-17 Completed Unive rsity of MIKE-SUCROSE VACCINE 00:00:00 [facility] 12 YRS+, BIVALENT Branch 0.3ML, IM, (PFIZER ARITA TOP BOOSTER) SARS-COV-2 COVID-19 2022-03-17 Completed Unive rs[facility] of MIKE-SUCROSE VACCINE 00:00:00 [facility] 12 YRS+, BIVALENT Branch 0.3ML, IM, (PFIZER ARITA TOP BOOSTER) SARS-COV-2 COVID-19 2022-03-17 Completed Unive rsity of MIKE-SUCROSE VACCINE 00:00:00 [facility] 12 YRS+, BIVALENT Branch 0.3ML, IM, (PFIZER ARITA TOP BOOSTER) SARS-COV-2 COVID-19 2022-03-17 Completed Unive rsity of MIKE-SUCROSE VACCINE 00:00:00 [facility] 12 YRS+, BIVALENT Branch 0.3ML, IM, (PFIZER ARITA TOP BOOSTER) SARS-COV-2 COVID-19 2022-03-17 Completed Unive rsity of MIKE-SUCROSE VACCINE 00:00:00 [facility] 12 YRS+, BIVALENT Branch 0.3ML, IM, (PFIZER ARITA TOP BOOSTER) SARS-COV-2 COVID-19 2022-03-17 Completed Unive rsity of MIKE-SUCROSE VACCINE 00:00:00 [facility] 12 YRS+, BIVALENT Branch 0.3ML, IM, (PFIZER ARITA TOP BOOSTER) SARS-COV-2 COVID-19 2022-03-17 Completed Unive rsity of MIKE-SUCROSE VACCINE 00:00:00 [facility] 12 YRS+, BIVALENT Branch 0.3ML, IM, (PFIZER ARITA TOP BOOSTER) SARS-COV-2 COVID-19 2022-03-17 Completed Unive rsity of MIKE-SUCROSE VACCINE 00:00:00 [facility] 12 YRS+, BIVALENT Branch 0.3ML, IM, (PFIZER ARITA TOP BOOSTER) SARS-COV-2 COVID-19 2022-03-17 Completed Unive rsity of MIKE-SUCROSE VACCINE 00:00:00 [facility] 12 YRS+, BIVALENT Branch 0.3ML, IM, (PFIZER ARITA TOP BOOSTER) SARS-COV-2 COVID-19 2022-03-17 Completed Unive rsity of MIKE-SUCROSE VACCINE 00:00:00 [facility] 12 YRS+, BIVALENT Branch 0.3ML, IM, (PFIZER ARITA TOP BOOSTER) SARS-COV-2 COVID-19 2022-03-17 Completed Unive rsity of MIKE-SUCROSE VACCINE 00:00:00 [facility] 12 YRS+, BIVALENT Branch 0.3ML, IM, (PFIZER ARITA TOP BOOSTER) SARS-COV-2 COVID-19 2022-03-17 Completed Unive rsity of MIKE-SUCROSE VACCINE 00:00:00 [facility] 12 YRS+, BIVALENT Branch 0.3ML, IM, (PFIZER ARITA TOP BOOSTER) SARS-COV-2 COVID-19 2022-03-17 Completed Unive rsity of MIKE-SUCROSE VACCINE 00:00:00 [facility] 12 YRS+, BIVALENT Branch 0.3ML, IM, (PFIZER ARITA TOP BOOSTER) SARS-COV-2 COVID-19 2022-03-17 Completed Unive rsity of MIKE-SUCROSE VACCINE 00:00:00 [facility] 12 YRS+, BIVALENT Branch 0.3ML, IM, (PFIZER ARITA TOP BOOSTER) SARS-COV-2 COVID-19 2022-03-17 Completed Unive rsity of MIKE-SUCROSE VACCINE 00:00:00 [facility] 12 YRS+, BIVALENT Branch 0.3ML, IM, (PFIZER ARITA TOP BOOSTER) SARS-COV-2 COVID-19 2022-03-17 Completed Unive rsity of MIKE-SUCROSE VACCINE 00:00:00 [facility] 12 YRS+, BIVALENT Branch 0.3ML, IM, (PFIZER ARITA TOP BOOSTER) SARS-COV-2 COVID-19 2022-03-17 Completed Unive rsity of MIKE-SUCROSE VACCINE 00:00:00 [facility] 12 YRS+, BIVALENT Branch 0.3ML, IM, (PFIZER ARITA TOP BOOSTER) SARS-COV-2 COVID-19 2022-03-17 Completed Unive rsity of MIKE-SUCROSE VACCINE 00:00:00 [facility] 12 YRS+, BIVALENT Branch 0.3ML, IM, (PFIZER ARITA TOP BOOSTER) SARS-COV-2 COVID-19 2022-03-17 Completed Unive rsity of MIKE-SUCROSE VACCINE 00:00:00 [facility] 12 YRS+, BIVALENT Branch 0.3ML, IM, (PFIZER ARITA TOP BOOSTER) SARS-COV-2 COVID-19 2022-03-17 Completed Unive rsity of MIKE-SUCROSE VACCINE 00:00:00 [facility] 12 YRS+, BIVALENT Branch 0.3ML, IM, (PFIZER ARITA TOP BOOSTER) SARS-COV-2 COVID-19 2022-03-17 Completed Unive rsity of MIKE-SUCROSE VACCINE 00:00:00 [facility] 12 YRS+, BIVALENT Branch 0.3ML, IM, (PFIZER ARITA TOP BOOSTER) SARS-COV-2 COVID-19 2022-03-17 Completed Unive rsity of MIKE-SUCROSE VACCINE 00:00:00 [facility] 12 YRS+, BIVALENT Branch 0.3ML, IM, (PFIZER ARITA TOP BOOSTER) SARS-COV-2 COVID-19 2022-03-17 Completed Unive rsity of MIKE-SUCROSE VACCINE 00:00:00 [facility] 12 YRS+, BIVALENT Branch 0.3ML, IM, (PFIZER ARITA TOP BOOSTER) SARS-COV-2 COVID-19 2022-03-17 Completed Unive rsity of MIKE-SUCROSE VACCINE 00:00:00 [facility] 12 YRS+, BIVALENT Branch 0.3ML, IM, (PFIZER ARITA TOP BOOSTER) SARS-COV-2 COVID-19 2022-03-17 Completed Unive rsity of MIKE-SUCROSE VACCINE 00:00:00 [facility] 12 YRS+, BIVALENT Branch 0.3ML, IM, (PFIZER ARITA TOP BOOSTER) SARS-COV-2 COVID-19 2022-03-17 Completed Unive rsity of MIKE-SUCROSE VACCINE 00:00:00 [facility] 12 YRS+, BIVALENT Branch 0.3ML, IM, (PFIZER ARITA TOP BOOSTER) SARS-COV-2 COVID-19 2022-03-17 Completed Unive rsity of MIKE-SUCROSE VACCINE 00:00:00 [facility] 12 YRS+, BIVALENT Branch 0.3ML, IM, (PFIZER ARITA TOP BOOSTER) SARS-COV-2 COVID-19 2022-03-17 Completed Unive rsity of MIKE-SUCROSE VACCINE 00:00:00 [facility] 12 YRS+, BIVALENT Branch 0.3ML, IM, (PFIZER ARITA TOP BOOSTER) SARS-COV-2 COVID-19 2022-03-17 Completed Unive rsity of MIKE-SUCROSE VACCINE 00:00:00 [facility] 12 YRS+, BIVALENT Branch 0.3ML, IM, (PFIZER ARITA TOP BOOSTER) SARS-COV-2 COVID-19 2022-03-17 Completed Unive rsity of MIKE-SUCROSE VACCINE 00:00:00 [facility] 12 YRS+, BIVALENT Branch 0.3ML, IM, (PFIZER ARITA TOP BOOSTER) SARS-COV-2 COVID-19 2022-03-17 Completed Unive rsity of MIKE-SUCROSE VACCINE 00:00:00 [facility] 12 YRS+, BIVALENT Branch 0.3ML, IM, (PFIZER ARITA TOP BOOSTER) SARS-COV-2 COVID-19 2022-03-17 Completed Unive rsity of MIKE-SUCROSE VACCINE 00:00:00 [facility] 12 YRS+, BIVALENT Branch 0.3ML, IM, (PFIZER ARITA TOP BOOSTER) SARS-COV-2 COVID-19 2022-03-17 Completed Unive rsity of MIKE-SUCROSE VACCINE 00:00:00 [facility] 12 YRS+, BIVALENT Branch 0.3ML, IM, (PFIZER ARITA TOP BOOSTER) SARS-COV-2 COVID-19 2022-03-17 Completed Unive rsity of MIKE-SUCROSE VACCINE 00:00:00 [facility] 12 YRS+, BIVALENT Branch 0.3ML, IM, (PFIZER ARITA TOP BOOSTER) SARS-COV-2 COVID-19 2022-03-17 Completed Unive rsity of MIKE-SUCROSE VACCINE 00:00:00 [facility] 12 YRS+, BIVALENT Branch 0.3ML, IM, (PFIZER ARITA TOP BOOSTER) SARS-COV-2 COVID-19 2022-03-17 Completed Unive rsity of MIKE-SUCROSE VACCINE 00:00:00 [facility] 12 YRS+, BIVALENT Branch 0.3ML, IM, (PFIZER ARITA TOP BOOSTER) SARS-COV-2 COVID-19 2022-03-17 Completed Unive rsity of MIKE-SUCROSE VACCINE 00:00:00 [facility] 12 YRS+, BIVALENT Branch 0.3ML, IM, (PFIZER ARITA TOP BOOSTER) SARS-COV-2 COVID-19 2022-03-17 Completed Unive rsity of MIKE-SUCROSE VACCINE 00:00:00 [facility] 12 YRS+, BIVALENT Branch 0.3ML, IM, (PFIZER ARITA TOP BOOSTER) SARS-COV-2 COVID-19 2021-06-24 Completed Unive rsity of PFIZER VACCINE 00:00:00 [facility] Branch SARS-COV-2 COVID-19 2021-06-24 Completed Unive rsity of PFIZER VACCINE 00:00:00 [facility] [place] SARS-COV-2 COVID-19 2021-06-24 Completed Unive rsity of PFIZER VACCINE 00:00:00 [facility] SARS-COV-2 COVID-19 2021-06-24 Completed Unive rsity of PFIZER VACCINE 00:00:00 [place] [facility] SARS-COV-2 COVID-19 2021-06-24 Completed Unive rsity of PFIZER VACCINE 00:00:00 [facility] SARS-COV-2 COVID-19 2021-06-24 Completed Unive rsity of PFIZER VACCINE 00:00:00 [facility] SARS-COV-2 COVID-19 2021-06-24 Completed Unive rsity of PFIZER VACCINE 00:00:00 [facility] SARS-COV-2 COVID-19 2021-06-24 Completed Unive rsity of PFIZER VACCINE 00:00:00 [facility] SARS-COV-2 COVID-19 2021-06-24 Completed Unive rsity of PFIZER VACCINE 00:00:00 [facility] SARS-COV-2 COVID-19 2021-06-24 Completed Unive rsity of PFIZER VACCINE 00:00:00 [facility] SARS-COV-2 COVID-19 2021-06-24 Completed Unive rsity of PFIZER VACCINE 00:00:00 [facility] SARS-COV-2 COVID-19 2021-06-24 Completed Unive rsity of PFIZER VACCINE 00:00:00 [facility] SARS-COV-2 COVID-19 2021-06-24 Completed Unive rsity of PFIZER VACCINE 00:00:00 [facility] SARS-COV-2 COVID-19 2021-06-24 Completed Unive rsity of PFIZER VACCINE 00:00:00 [facility] SARS-COV-2 COVID-19 2021-06-24 Completed Unive rsity of PFIZER VACCINE 00:00:00 [facility] SARS-COV-2 COVID-19 2021-06-24 Completed Unive rsity of PFIZER VACCINE 00:00:00 [facility] SARS-COV-2 COVID-19 2021-06-24 Completed Unive rsity of PFIZER VACCINE 00:00:00 [facility] SARS-COV-2 COVID-19 2021-06-24 Completed Unive rsity of PFIZER VACCINE 00:00:00 [facility] SARS-COV-2 COVID-19 2021-06-24 Completed Unive rsity of PFIZER VACCINE 00:00:00 [facility] SARS-COV-2 COVID-19 2021-06-24 Completed Unive rsity of PFIZER VACCINE 00:00:00 [facility] SARS-COV-2 COVID-19 2021-06-24 Completed Unive rsity of PFIZER VACCINE 00:00:00 [facility] SARS-COV-2 COVID-19 2021-06-24 Completed Unive rsity of PFIZER VACCINE 00:00:00 [facility] SARS-COV-2 COVID-19 2021-06-24 Completed Unive rsity of PFIZER VACCINE 00:00:00 [facility] SARS-COV-2 COVID-19 2021-06-24 Completed Unive rsity of PFIZER VACCINE 00:00:00 [facility] SARS-COV-2 COVID-19 2021-06-24 Completed Unive rsity of PFIZER VACCINE 00:00:00 [facility] SARS-COV-2 COVID-19 2021-06-24 Completed Unive rsity of PFIZER VACCINE 00:00:00 [facility] SARS-COV-2 COVID-19 2021-06-24 Completed Unive rsity of PFIZER VACCINE 00:00:00 [facility] SARS-COV-2 COVID-19 2021-06-24 Completed Unive rsity of PFIZER VACCINE 00:00:00 [facility] SARS-COV-2 COVID-19 2021-06-24 Completed Unive rsity of PFIZER VACCINE 00:00:00 [facility] SARS-COV-2 COVID-19 2021-06-24 Completed Unive rsity of PFIZER VACCINE 00:00:00 [facility] SARS-COV-2 COVID-19 2021-06-24 Completed Unive rsity of PFIZER VACCINE 00:00:00 [facility] SARS-COV-2 COVID-19 2021-06-24 Completed Unive rsity of PFIZER VACCINE 00:00:00 [facility] SARS-COV-2 COVID-19 2021-06-24 Completed Unive rsity of PFIZER VACCINE 00:00:00 [facility] SARS-COV-2 COVID-19 2021-06-24 Completed Unive rsity of PFIZER VACCINE 00:00:00 [facility] SARS-COV-2 COVID-19 2021-06-24 Completed Unive rsity of PFIZER VACCINE 00:00:00 [place] [facility] SARS-COV-2 COVID-19 2021-06-24 Completed Unive rsity of PFIZER VACCINE 00:00:00 [facility] SARS-COV-2 COVID-19 2021-06-24 Completed Unive rsity of PFIZER VACCINE 00:00:00 [facility] SARS-COV-2 COVID-19 2021-06-24 Completed Unive rsity of PFIZER VACCINE 00:00:00 [facility] SARS-COV-2 COVID-19 2021-06-24 Completed Unive rsity of PFIZER VACCINE 00:00:00 [facility] SARS-COV-2 COVID-19 2021-06-24 Completed Unive rsity of PFIZER VACCINE 00:00:00 [facility] SARS-COV-2 COVID-19 2021-06-24 Completed Unive rsity of PFIZER VACCINE 00:00:00 [facility] SARS-COV-2 COVID-19 2021-06-24 Completed Unive rsity of PFIZER VACCINE 00:00:00 [facility] SARS-COV-2 COVID-19 2021-06-24 Completed Unive rsity of PFIZER VACCINE 00:00:00 [facility] SARS-COV-2 COVID-19 2021-06-24 Completed Unive rsity of PFIZER VACCINE 00:00:00 [facility] SARS-COV-2 COVID-19 2021-06-24 Completed Unive rsity of PFIZER VACCINE 00:00:00 [facility] SARS-COV-2 COVID-19 2021-06-24 Completed Unive rsity of PFIZER VACCINE 00:00:00 [facility] SARS-COV-2 COVID-19 2021-06-24 Completed Unive rsity of PFIZER VACCINE 00:00:00 [facility] SARS-COV-2 COVID-19 2021-06-24 Completed Unive rsity of PFIZER VACCINE 00:00:00 [facility] SARS-COV-2 COVID-19 2021-06-24 Completed Unive rsity of PFIZER VACCINE 00:00:00 [facility] SARS-COV-2 COVID-19 2021-06-24 Completed Unive rsity of PFIZER VACCINE 00:00:00 [facility] SARS-COV-2 COVID-19 2021-06-24 Completed Unive rsity of PFIZER VACCINE 00:00:00 [facility] SARS-COV-2 COVID-19 2021-06-24 Completed Unive rsity of PFIZER VACCINE 00:00:00 [facility] SARS-COV-2 COVID-19 2021-06-24 Completed Unive rsity of PFIZER VACCINE 00:00:00 [facility] SARS-COV-2 COVID-19 2021-06-24 Completed Unive rsity of PFIZER VACCINE 00:00:00 [facility] SARS-COV-2 COVID-19 2021-06-24 Completed Unive rsity of PFIZER VACCINE 00:00:00 [facility] SARS-COV-2 COVID-19 2021-06-24 Completed Unive rsity of PFIZER VACCINE 00:00:00 [facility] SARS-COV-2 COVID-19 2021-06-24 Completed [...] Completed Unive rsity of PFIZER VACCINE 00:00:00 [facility] SARS-COV-2 COVID-19 2020-11-21 Completed [...] Completed Unive rsity of PFIZER VACCINE 00:00:00 [facility] SARS-COV-2 COVID-19 2020-11-21 Completed Unive rsity of PFIZER VACCINE 00:00:00 [facility] SARS-COV-2 COVID-19 2020-11-21 Completed Unive rsity of PFIZER VACCINE 00:00:00 [facility] SARS-COV-2 COVID-19 2020-11-21 Completed Unive rsity of PFIZER VACCINE 00:00:00 [facility] SARS-COV-2 COVID-19 2020-11-21 Completed Unive rsity of PFIZER VACCINE 00:00:00 [facility] SARS-COV-2 COVID-19 2020-11-21 Completed Unive rsity of PFIZER VACCINE 00:00:00 [facility] SARS-COV-2 COVID-19 2020-11-21 Completed Unive rsity of PFIZER VACCINE 00:00:00 [facility] SARS-COV-2 COVID-19 2020-11-21 Completed Unive rsity of PFIZER VACCINE 00:00:00 [facility] SARS-COV-2 COVID-19 2020-11-21 Completed [facility]ive rsity of PFIZER VACCINE 00:00:00 [facility] SARS-COV-2 COVID-19 2020-11-21 Completed Unive rsity of PFIZER VACCINE 00:00:00 [facility] SARS-COV-2 COVID-19 2020-11-21 Completed Unive rsity of PFIZER VACCINE 00:00:00 [facility] SARS-COV-2 COVID-19 2020-11-21 Completed Unive rsity of PFIZER VACCINE 00:00:00 [facility] SARS-COV-2 COVID-19 2020-11-21 Completed Unive rsity of PFIZER VACCINE 00:00:00 [facility] SARS-COV-2 COVID-19 2020-11-21 Completed Unive rsity of PFIZER VACCINE 00:00:00 [facility] SARS-COV-2 COVID-19 2020-11-21 Completed Unive rsity of PFIZER VACCINE 00:00:00 [facility] SARS-COV-2 COVID-19 2020-11-21 Completed Unive rsity of PFIZER VACCINE 00:00:00 [facility] SARS-COV-2 COVID-19 2020-11-21 Completed Unive rsity of PFIZER VACCINE 00:00:00 [facility] SARS-COV-2 COVID-19 2020-11-21 Completed Unive rsity of PFIZER VACCINE 00:00:00 [facility] SARS-COV-2 COVID-19 2020-11-21 Completed Unive rsity of PFIZER VACCINE 00:00:00 [facility] SARS-COV-2 COVID-19 2020-11-21 Completed Unive rsity of PFIZER VACCINE 00:00:00 [facility] SARS-COV-2 COVID-19 2020-11-21 Completed Unive rsity of PFIZER VACCINE 00:00:00 [facility] SARS-COV-2 COVID-19 2020-11-21 Completed Unive rsity of PFIZER VACCINE 00:00:00 [facility] SARS-COV-2 COVID-19 2020-11-21 Completed Unive rsity of PFIZER VACCINE 00:00:00 [facility] SARS-COV-2 COVID-19 2020-11-21 Completed Unive rsity of PFIZER VACCINE 00:00:00 [facility] SARS-COV-2 COVID-19 2020-11-21 Completed Unive rsity of PFIZER VACCINE 00:00:00 [facility] SARS-COV-2 COVID-19 2020-11-21 Completed Unive rsity of PFIZER VACCINE 00:00:00 [facility] SARS-COV-2 COVID-19 2020-11-21 Completed [facility]ive rsity of PFIZER VACCINE 00:00:00 [facility] SARS-COV-2 COVID-19 2020-11-21 Completed Unive rsity of PFIZER VACCINE 00:00:00 [facility] SARS-COV-2 COVID-19 2020-11-21 Completed [facility]ive [facility] of PFIZER VACCINE 00:00:00 [facility] SARS-COV-2 COVID-19 2020-11-21 Completed Unive [facility] of PFIZER VACCINE 00:00:00 [facility] SARS-COV-2 COVID-19 2020-11-21 Completed Unive rsity of PFIZER VACCINE 00:00:00 [facility] SARS-COV-2 COVID-19 2020-11-21 Completed [facility] PFIZER VACCINE 00:00:00 [facility] SARS-COV-2 COVID-19 2020-11-21 Completed [facility] PFIZER VACCINE 00:00:00 [facility] SARS-COV-2 COVID-19 2020-11-21 Completed [facility] PFIZER VACCINE 00:00:00 [facility] SARS-COV-2 COVID-19 2020-11-21 Completed [facility] PFIZER VACCINE 00:00:00 [facility] SARS-COV-2 COVID-19 2020-11-21 Completed [facility] PFIZER VACCINE 00:00:00 [facility] SARS-COV-2 COVID-19 2020-11-21 Completed [facility] PFIZER VACCINE 00:00:00 [facility] SARS-COV-2 COVID-19 2020-11-21 Completed [facility] PFIZER VACCINE 00:00:00 [facility] SARS-COV-2 COVID-19 2020-11-21 Completed [facility] PFIZER VACCINE 00:00:00 [facility] SARS-COV-2 COVID-19 2020-11-21 Completed [facility] PFIZER VACCINE 00:00:00 [facility] SARS-COV-2 COVID-19 2020-11-21 Completed [facility] PFIZER VACCINE 00:00:00 [facility] SARS-COV-2 COVID-19 2020-11-21 Completed [facility] of PFIZER VACCINE 00:00:00 [facility] SARS-COV-2 COVID-19 2020-11-21 Completed [facility]ive [facility] of PFIZER VACCINE 00:00:00 [facility] SARS-COV-2 COVID-19 2020-11-21 Completed [facility] of PFIZER VACCINE 00:00:00 [facility] SARS-COV-2 COVID-19 2020-11-21 Completed [facility] of PFIZER VACCINE 00:00:00 [facility] SARS-COV-2 COVID-19 2020-11-21 Completed [facility] of PFIZER VACCINE 00:00:00 [facility] SARS-COV-2 COVID-19 2020-11-21 Completed [facility] of PFIZER VACCINE 00:00:00 [facility] SARS-COV-2 COVID-19 2020-11-21 Completed [facility] of PFIZER VACCINE 00:00:00 [facility] SARS-COV-2 COVID-19 2020-10-24 Completed [facility] of PFIZER VACCINE 00:00:00 [facility] SARS-COV-2 COVID-19 2020-10-24 Completed [facility] of PFIZER VACCINE 00:00:00 [facility] SARS-COV-2 COVID-19 2020-10-24 Completed [facility] of PFIZER VACCINE 00:00:00 [facility] SARS-COV-2 COVID-19 2020-10-24 Completed [facility] of PFIZER VACCINE 00:00:00 [facility] SARS-COV-2 COVID-19 2020-10-24 Completed [facility] of PFIZER VACCINE 00:00:00 [facility] SARS-COV-2 COVID-19 2020-10-24 Completed [facility] of PFIZER VACCINE 00:00:00 [facility] SARS-COV-2 COVID-19 2020-10-24 Completed [facility] of PFIZER VACCINE 00:00:00 [facility] SARS-COV-2 COVID-19 2020-10-24 Completed [facility] of PFIZER VACCINE 00:00:00 [facility] SARS-COV-2 COVID-19 2020-10-24 Completed [facility] of PFIZER VACCINE 00:00:00 [facility] SARS-COV-2 COVID-19 2020-10-24 Completed [facility] of PFIZER VACCINE 00:00:00 [facility] SARS-COV-2 COVID-19 2020-10-24 Completed [facility] of PFIZER VACCINE 00:00:00 [facility] SARS-COV-2 COVID-19 2020-10-24 Completed [facility] of PFIZER VACCINE 00:00:00 [facility] SARS-COV-2 COVID-19 2020-10-24 Completed [facility] of PFIZER VACCINE 00:00:00 [facility] SARS-COV-2 COVID-19 2020-10-24 Completed [facility] of PFIZER VACCINE 00:00:00 [facility] SARS-COV-2 COVID-19 2020-10-24 Completed [facility] PFIZER VACCINE 00:00:00 [facility] SARS-COV-2 COVID-19 2020-10-24 Completed [facility] of PFIZER VACCINE 00:00:00 [facility] SARS-COV-2 COVID-19 2020-10-24 Completed [facility] of PFIZER VACCINE 00:00:00 [facility] SARS-COV-2 COVID-19 2020-10-24 Completed [facility] of PFIZER VACCINE 00:00:00 [facility] SARS-COV-2 COVID-19 2020-10-24 Completed [facility] of PFIZER VACCINE 00:00:00 [facility] SARS-COV-2 COVID-19 2020-10-24 Completed [facility] of PFIZER VACCINE 00:00:00 [facility] SARS-COV-2 COVID-19 2020-10-24 Completed [facility] of PFIZER VACCINE 00:00:00 [facility] SARS-COV-2 COVID-19 2020-10-24 Completed [facility] of PFIZER VACCINE 00:00:00 [facility] SARS-COV-2 COVID-19 2020-10-24 Completed [facility] of PFIZER VACCINE 00:00:00 [facility] SARS-COV-2 COVID-19 2020-10-24 Completed [facility] of PFIZER VACCINE 00:00:00 [facility] SARS-COV-2 COVID-19 2020-10-24 Completed [facility] of PFIZER VACCINE 00:00:00 [facility] SARS-COV-2 COVID-19 2020-10-24 Completed [facility] of PFIZER VACCINE 00:00:00 [facility] SARS-COV-2 COVID-19 2020-10-24 Completed [facility] of PFIZER VACCINE 00:00:00 [facility] SARS-COV-2 COVID-19 2020-10-24 Completed [facility] of PFIZER VACCINE 00:00:00 [facility] SARS-COV-2 COVID-19 2020-10-24 Completed [facility] of PFIZER VACCINE 00:00:00 [facility] SARS-COV-2 COVID-19 2020-10-24 Completed [facility] of PFIZER VACCINE 00:00:00 [facility] SARS-COV-2 COVID-19 2020-10-24 Completed [facility] of PFIZER VACCINE 00:00:00 [facility] SARS-COV-2 COVID-19 2020-10-24 Completed [facility] of PFIZER VACCINE 00:00:00 [facility] SARS-COV-2 COVID-19 2020-10-24 Completed [facility] of PFIZER VACCINE 00:00:00 [facility] SARS-COV-2 COVID-19 2020-10-24 Completed [facility] of PFIZER VACCINE 00:00:00 [facility] SARS-COV-2 COVID-19 2020-10-24 Completed [facility] of PFIZER VACCINE 00:00:00 [facility] SARS-COV-2 COVID-19 2020-10-24 Completed [facility] of PFIZER VACCINE 00:00:00 [facility] SARS-COV-2 COVID-19 2020-10-24 Completed [facility] of PFIZER VACCINE 00:00:00 [facility] SARS-COV-2 COVID-19 2020-10-24 Completed [facility] of PFIZER VACCINE 00:00:00 [facility] SARS-COV-2 COVID-19 2020-10-24 Completed [facility] of PFIZER VACCINE 00:00:00 [facility] SARS-COV-2 COVID-19 2020-10-24 Completed [facility] of PFIZER VACCINE 00:00:00 [facility] SARS-COV-2 COVID-19 2020-10-24 Completed [facility] of PFIZER VACCINE 00:00:00 [facility] SARS-COV-2 COVID-19 2020-10-24 Completed [facility] of PFIZER VACCINE 00:00:00 [facility] SARS-COV-2 COVID-19 2020-10-24 Completed [facility] of PFIZER VACCINE 00:00:00 [facility] SARS-COV-2 COVID-19 2020-10-24 Completed [facility] of PFIZER VACCINE 00:00:00 [facility] SARS-COV-2 COVID-19 2020-10-24 Completed [facility] of PFIZER VACCINE 00:00:00 [facility] SARS-COV-2 COVID-19 2020-10-24 Completed [facility] of PFIZER VACCINE 00:00:00 [facility] SARS-COV-2 COVID-19 2020-10-24 Completed [facility] of PFIZER VACCINE 00:00:00 [facility] SARS-COV-2 COVID-19 2020-10-24 Completed [facility] of PFIZER VACCINE 00:00:00 [facility] SARS-COV-2 COVID-19 2020-10-24 Completed [facility] of PFIZER VACCINE 00:00:00 [facility] SARS-COV-2 COVID-19 2020-10-24 Completed [facility] of PFIZER VACCINE 00:00:00 [facility] SARS-COV-2 COVID-19 2020-10-24 Completed [...] OMV 2018-10-31 Completed [facility] of 00:00:00 [facility] Meningococcal B, OMV 2018-10-31 Completed Univ ers[facility] of 00:00:00 [facility] Influenza Virus 2018-08-29 Completed Universit y of Vaccine Quad .5 mL IM 00:00:00 [facility] Meningococcal B, OMV 2018-08-29 Completed Univ ersity of 00:00:00 [facility] Influenza Virus 2018-08-29 Completed [facility]it y of Vaccine Quad .5 mL IM 00:00:00 [facility] Meningococcal B, OMV 2018-08-29 Completed [facility] ers[facility] of 00:00:00 [facility] Influenza Virus 2018-08-29 Completed [facility] of Vaccine Quad .5 mL IM 00:00:00 [facility] Meningococcal B, OMV 2018-08-29 Completed [facility] ers[facility] of 00:00:00 [facility] Influenza Virus 2018-08-29 Completed [facility] of Vaccine Quad .5 mL IM 00:00:00 [facility] Meningococcal B, OMV 2018-08-29 Completed [facility] ers[facility] of 00:00:00 [facility] Influenza Virus 2018-08-29 Completed [facility] of Vaccine Quad .5 mL IM 00:00:00 [facility] Meningococcal B, OMV 2018-08-29 Completed [facility] ers[facility] of 00:00:00 [facility] Influenza Virus 2018-08-29 Completed [facility] of Vaccine Quad .5 mL IM 00:00:00 [facility] Meningococcal B, OMV 2018-08-29 Completed [facility] ers[facility] of 00:00:00 [facility] Influenza Virus 2018-08-29 Completed [facility] of Vaccine Quad .5 mL IM 00:00:00 [facility] Meningococcal B, OMV 2018-08-29 Completed [facility] ers[facility] of 00:00:00 [facility] Influenza Virus 2018-08-29 Completed [facility] of Vaccine Quad .5 mL IM 00:00:00 [facility] Meningococcal B, OMV 2018-08-29 Completed [facility] ers[facility] of 00:00:00 [facility] Influenza Virus 2018-08-29 Completed [facility] of Vaccine Quad .5 mL IM 00:00:00 [facility] Meningococcal B, OMV 2018-08-29 Completed [facility] ers[facility] of 00:00:00 [facility] Influenza Virus 2018-08-29 Completed [facility] of Vaccine Quad .5 mL IM 00:00:00 [facility] Meningococcal B, OMV 2018-08-29 Completed [facility] of 00:00:00 [facility] Influenza Virus 2018-08-29 Completed [facility] of Vaccine Quad .5 mL IM 00:00:00 [facility] Meningococcal B, OMV 2018-08-29 Completed [facility] of 00:00:00 [facility] Influenza Virus 2018-08-29 Completed [facility] of Vaccine Quad .5 mL IM 00:00:00 [facility] Meningococcal B, OMV 2018-08-29 Completed [facility] of 00:00:00 [facility] Influenza Virus 2018-08-29 Completed [facility] of Vaccine Quad .5 mL IM 00:00:00 [facility] Meningococcal B, OMV 2018-08-29 Completed [facility] of 00:00:00 [facility] Influenza Virus 2018-08-29 Completed [facility] of Vaccine Quad .5 mL IM 00:00:00 [facility] Meningococcal B, OMV 2018-08-29 Completed [facility] of 00:00:00 [facility] Influenza Virus 2018-08-29 Completed [facility] of Vaccine Quad .5 mL IM 00:00:00 [facility] Meningococcal B, OMV 2018-08-29 Completed [facility] of 00:00:00 [facility] Influenza Virus 2018-08-29 Completed [facility] of Vaccine Quad .5 mL IM 00:00:00 [facility] Meningococcal B, OMV 2018-08-29 Completed [facility] of 00:00:00 [facility] Influenza Virus 2018-08-29 Completed [facility] of Vaccine Quad .5 mL IM 00:00:00 [facility] Meningococcal B, OMV 2018-08-29 Completed [facility] of 00:00:00 [facility] Influenza Virus 2018-08-29 Completed [facility] of Vaccine Quad .5 mL IM 00:00:00 [facility] Meningococcal B, OMV 2018-08-29 Completed [facility] of 00:00:00 [facility] Influenza Virus 2018-08-29 Completed [facility] of Vaccine Quad .5 mL IM 00:00:00 [facility] Meningococcal B, OMV 2018-08-29 Completed [facility] of 00:00:00 [facility] Influenza Virus 2018-08-29 Completed [facility] of Vaccine Quad .5 mL IM 00:00:00 [facility] Meningococcal B, OMV 2018-08-29 Completed [facility] of 00:00:00 [facility] Influenza Virus 2018-08-29 Completed [facility] of Vaccine Quad .5 mL IM 00:00:00 [facility] Meningococcal B, OMV 2018-08-29 Completed [facility] of 00:00:00 [facility] Influenza Virus 2018-08-29 Completed [facility] of Vaccine Quad .5 mL IM 00:00:00 [facility] Meningococcal B, OMV 2018-08-29 Completed [facility] of 00:00:00 [facility] Influenza Virus 2018-08-29 Completed [facility] of Vaccine Quad .5 mL IM 00:00:00 [facility] Meningococcal B, OMV 2018-08-29 Completed [facility] of 00:00:00 [facility] Influenza Virus 2018-08-29 Completed [facility] of Vaccine Quad .5 mL IM 00:00:00 [facility] Meningococcal B, OMV 2018-08-29 Completed [facility] of 00:00:00 [facility] Influenza Virus 2018-08-29 Completed [facility] of Vaccine Quad .5 mL IM 00:00:00 [facility] Meningococcal B, OMV 2018-08-29 Completed [facility] of 00:00:00 [facility] Influenza Virus 2018-08-29 Completed [facility] of Vaccine Quad .5 mL IM 00:00:00 [facility] Meningococcal B, OMV 2018-08-29 Completed [facility] of 00:00:00 [facility] Influenza Virus 2018-08-29 Completed [facility] of Vaccine Quad .5 mL IM 00:00:00 [facility] Meningococcal B, OMV 2018-08-29 Completed [facility] of 00:00:00 [facility] Influenza Virus 2018-08-29 Completed [facility] of Vaccine Quad .5 mL IM 00:00:00 [facility] Meningococcal B, OMV 2018-08-29 Completed [facility] of 00:00:00 [facility] Influenza Virus 2018-08-29 Completed [facility] of Vaccine Quad .5 mL IM 00:00:00 [facility] Meningococcal B, OMV 2018-08-29 Completed [facility] of 00:00:00 [facility] Influenza Virus 2018-08-29 Completed [facility] of Vaccine Quad .5 mL IM 00:00:00 [facility] Meningococcal B, OMV 2018-08-29 Completed [facility] of 00:00:00 [facility] Influenza Virus 2018-08-29 Completed [facility] of Vaccine Quad .5 mL IM 00:00:00 [facility] Meningococcal B, OMV 2018-08-29 Completed [facility] of 00:00:00 [facility] Influenza Virus 2018-08-29 Completed [facility] of Vaccine Quad .5 mL IM 00:00:00 [facility] Meningococcal B, OMV 2018-08-29 Completed [facility] of 00:00:00 [facility] Influenza Virus 2018-08-29 Completed [facility] of Vaccine Quad .5 mL IM 00:00:00 [facility] Meningococcal B, OMV 2018-08-29 Completed [facility] of 00:00:00 [facility] Influenza Virus 2018-08-29 Completed [facility] of Vaccine Quad .5 mL IM 00:00:00 [facility] Meningococcal B, OMV 2018-08-29 Completed [facility] of 00:00:00 [facility] Influenza Virus 2018-08-29 Completed [facility] of Vaccine Quad .5 mL IM 00:00:00 [facility] Meningococcal B, OMV 2018-08-29 Completed [facility] of 00:00:00 [facility] Influenza Virus 2018-08-29 Completed [facility] of Vaccine Quad .5 mL IM 00:00:00 [facility] Meningococcal B, OMV 2018-08-29 Completed [facility] of 00:00:00 [facility] Influenza Virus 2018-08-29 Completed [facility] of Vaccine Quad .5 mL IM 00:00:00 [facility] Meningococcal B, OMV 2018-08-29 Completed [facility] of 00:00:00 [facility] Influenza Virus 2018-08-29 Completed [facility] of Vaccine Quad .5 mL IM 00:00:00 [facility] Meningococcal B, OMV 2018-08-29 Completed [facility] of 00:00:00 [facility] Influenza Virus 2018-08-29 Completed [facility] of Vaccine Quad .5 mL IM 00:00:00 [facility] Meningococcal B, OMV 2018-08-29 Completed [facility] of 00:00:00 [facility] Influenza Virus 2018-08-29 Completed [facility] of Vaccine Quad .5 mL IM 00:00:00 [facility] Meningococcal B, OMV 2018-08-29 Completed [facility] of 00:00:00 [facility] Influenza Virus 2018-08-29 Completed [facility] of Vaccine Quad .5 mL IM 00:00:00 [facility] Meningococcal B, OMV 2018-08-29 Completed [facility] of 00:00:00 [facility] Influenza Virus 2018-08-29 Completed [facility] of Vaccine Quad .5 mL IM 00:00:00 [facility] Meningococcal B, OMV 2018-08-29 Completed [facility] of 00:00:00 [facility] Influenza Virus 2018-08-29 Completed [facility] of Vaccine Quad .5 mL IM 00:00:00 [facility] Meningococcal B, OMV 2018-08-29 Completed [facility] of 00:00:00 [facility] Influenza Virus 2018-08-29 Completed [facility] of Vaccine Quad .5 mL IM 00:00:00 [facility] Meningococcal B, OMV 2018-08-29 Completed [facility] of 00:00:00 [facility] Influenza Virus 2018-08-29 Completed [facility] of Vaccine Quad .5 mL IM 00:00:00 [facility] Meningococcal B, OMV 2018-08-29 Completed [facility] of 00:00:00 [facility] Influenza Virus 2018-08-29 Completed [facility] of Vaccine Quad .5 mL IM 00:00:00 [facility] Meningococcal B, OMV 2018-08-29 Completed [facility] of 00:00:00 [facility] Influenza Virus 2018-08-29 Completed [facility] of Vaccine Quad .5 mL IM 00:00:00 [facility] Meningococcal B, OMV 2018-08-29 Completed [facility] of 00:00:00 [facility] Influenza Virus 2018-08-29 Completed [facility] of Vaccine Quad .5 mL IM 00:00:00 [facility] Meningococcal B, OMV 2018-08-29 Completed [facility] of 00:00:00 [facility] Influenza Virus 2018-08-29 Completed [facility] of Vaccine Quad .5 mL IM 00:00:00 [facility] Meningococcal B, OMV 2018-08-29 Completed [facility] of 00:00:00 [facility] Influenza Virus 2018-08-29 Completed [facility] of Vaccine Quad .5 mL IM 00:00:00 [facility] Meningococcal B, OMV 2018-08-29 Completed [facility] of 00:00:00 [facility] Influenza Virus 2018-08-29 Completed [facility] of Vaccine Quad .5 mL IM 00:00:00 [facility] Meningococcal B, OMV 2018-08-29 Completed [facility] of 00:00:00 [facility] Influenza Virus 2018-08-29 Completed [facility] of Vaccine Quad .5 mL IM 00:00:00 [facility] Meningococcal B, OMV 2018-08-29 Completed [facility] of 00:00:00 [facility] Influenza Virus 2018-08-29 Completed [facility] of Vaccine Quad .5 mL IM 00:00:00 [facility] Meningococcal B, OMV 2018-08-29 Completed [facility] of 00:00:00 [facility] Influenza Virus 2018-08-29 Completed [facility] of Vaccine Quad .5 mL IM 00:00:00 [facility] Meningococcal B, OMV 2018-08-29 Completed [facility] of 00:00:00 [facility] Influenza Virus 2018-08-29 Completed [facility] of Vaccine Quad .5 mL IM 00:00:00 [facility] Meningococcal B, OMV 2018-08-29 Completed [facility] of 00:00:00 [facility] Influenza Virus 2018-08-29 Completed [facility] of Vaccine Quad .5 mL IM 00:00:00 [facility] Meningococcal B, OMV 2018-08-29 Completed [facility] of 00:00:00 [facility] Influenza Virus 2018-08-29 Completed [facility] of Vaccine Quad .5 mL IM 00:00:00 [facility] Meningococcal B, OMV 2018-08-29 Completed [facility] ersity of 00:00:00 [facility] Meningococcal 2018-01-17 Completed [facility] Polysaccharide 00:00:00 [facility] (groups A, C, Y and Branc h W-135) conjugate vaccine (MCV4P) Meningococcal 2018-01-17 Completed [facility] Polysaccharide 00:00:00 [facility] (groups A, C, Y and Branc h W-135) conjugate vaccine (MCV4P) Meningococcal 2018-01-17 Completed [facility] Polysaccharide 00:00:00 [facility] (groups A, C, Y and Branc h W-135) conjugate vaccine (MCV4P) Meningococcal 2018-01-17 Completed [facility] Polysaccharide 00:00:00 [facility] (groups A, C, Y and [...] Meningococcal 2018-01-17 Completed [facility] Polysaccharide 00:00:00 [facility] (groups A, C, Y and Branc h W-135) conjugate vaccine (MCV4P) Meningococcal 2018-01-17 Completed [facility] Polysaccharide 00:00:00 [facility] (groups A, C, Y and [...] y of Vaccine Quad IM 3+ 00:00:00 [facility] Influenza Virus 2017-04-12 Completed Universit y of Vaccine Quad IM 3+ 00:00:00 [facility] Influenza Virus 2017-04-12 Completed [facility]it y of Vaccine Quad IM 3+ 00:00:00 [facility] Influenza Virus 2017-04-12 Completed [facility]it y of Vaccine Quad IM 3+ 00:00:00 [facility] Influenza Virus 2017-04-12 Completed [facility] y of Vaccine Quad IM 3+ 00:00:00 [facility] Influenza Virus 2017-04-12 Completed [facility] y of Vaccine Quad IM 3+ 00:00:00 [facility] Influenza Virus 2017-04-12 Completed [facility]it y of Vaccine Quad IM 3+ 00:00:00 [facility] Influenza Virus 2017-04-12 Completed [facility] y of Vaccine Quad IM 3+ 00:00:00 [facility] Influenza Virus 2017-04-12 Completed [facility] y of Vaccine Quad IM 3+ 00:00:00 [facility] Influenza Virus 2017-04-12 Completed [facility] y of Vaccine Quad IM 3+ 00:00:00 [facility] Influenza Virus 2017-04-12 Completed [facility]it y of Vaccine Quad IM 3+ 00:00:00 [facility] Influenza Virus 2017-04-12 Completed [facility] y of Vaccine Quad IM 3+ 00:00:00 [facility] Influenza Virus 2017-04-12 Completed [facility]it y of Vaccine Quad IM 3+ 00:00:00 [facility] Influenza Virus 2017-04-12 Completed [facility]it y of Vaccine Quad IM 3+ 00:00:00 [facility] Influenza Virus 2017-04-12 Completed [facility] y of Vaccine Quad IM 3+ 00:00:00 [facility] Influenza Virus 2017-04-12 Completed [facility] y of Vaccine Quad IM 3+ 00:00:00 [facility] Influenza Virus 2017-04-12 Completed [facility] y of Vaccine Quad IM 3+ 00:00:00 [facility] Influenza Virus 2017-04-12 Completed [facility] y of Vaccine Quad IM 3+ 00:00:00 [facility] Influenza Virus 2017-04-12 Completed [facility] y of Vaccine Quad IM 3+ 00:00:00 [facility] Influenza Virus 2017-04-12 Completed [facility] y of Vaccine Quad IM 3+ 00:00:00 [facility] Influenza Virus 2017-04-12 Completed [facility] y of Vaccine Quad IM 3+ 00:00:00 [facility] Influenza Virus 2017-04-12 Completed [facility] y of Vaccine Quad IM 3+ 00:00:00 [facility] Influenza Virus 2017-04-12 Completed [facility] y of Vaccine Quad IM 3+ 00:00:00 [facility] Influenza Virus 2017-04-12 Completed [facility] y of Vaccine Quad IM 3+ 00:00:00 [facility] Influenza Virus 2017-04-12 Completed [facility] y of Vaccine Quad IM 3+ 00:00:00 [facility] Influenza Virus 2017-04-12 Completed [facility] y of Vaccine Quad IM 3+ 00:00:00 [facility] Influenza Virus 2017-04-12 Completed [facility] y of Vaccine Quad IM 3+ 00:00:00 [facility] Influenza Virus 2017-04-12 Completed [facility] y of Vaccine Quad IM 3+ 00:00:00 [facility] Influenza Virus 2017-04-12 Completed [facility] y of Vaccine Quad IM 3+ 00:00:00 [facility] Influenza Virus 2017-04-12 Completed [facility] y of Vaccine Quad IM 3+ 00:00:00 [facility] Influenza Virus 2017-04-12 Completed [facility] of Vaccine Quad IM 3+ 00:00:00 [facility] Influenza Virus 2017-04-12 Completed [facility] y of Vaccine Quad IM 3+ 00:00:00 [facility] Influenza Virus 2017-04-12 Completed [facility] y of Vaccine Quad IM 3+ 00:00:00 [facility] Influenza Virus 2017-04-12 Completed [facility] of Vaccine Quad IM 3+ 00:00:00 [facility] Influenza Virus 2017-04-12 Completed [facility] of Vaccine Quad IM 3+ 00:00:00 [facility] Influenza Virus 2017-04-12 Completed [facility] y of Vaccine Quad IM 3+ 00:00:00 [facility] Influenza Virus 2017-04-12 Completed [facility] y of Vaccine Quad IM 3+ 00:00:00 [facility] Influenza Virus 2017-04-12 Completed [facility] y of Vaccine Quad IM 3+ 00:00:00 [facility] Influenza Virus 2017-04-12 Completed [facility] y of Vaccine Quad IM 3+ 00:00:00 [facility] Influenza Virus 2017-04-12 Completed [facility] y of Vaccine Quad IM 3+ 00:00:00 [facility] Influenza Virus 2017-04-12 Completed [facility]it y of Vaccine Quad IM 3+ 00:00:00 [facility] Influenza Virus 2017-04-12 Completed Universit y of Vaccine Quad IM 3+ 00:00:00 [facility] Influenza Virus 2017-04-12 Completed [facility] IM 3+ 00:00:00 [facility] Influenza Virus 2017-04-12 Completed [facility] Vaccine Quad IM 3+ 00:00:00 [facility] Influenza Virus 2017-04-12 Completed [facility] Vaccine [facility] IM 3+ 00:00:00 [facility] Influenza Virus 2017-04-12 Completed [facility] IM 3+ 00:00:00 [facility] Influenza Virus 2017-04-12 Completed [facility] Vaccine [facility] IM 3+ 00:00:00 [facility] Influenza Virus 2017-04-12 Completed [facility] IM 3+ 00:00:00 [facility] Influenza Virus 2017-04-12 Completed [facility] of Vacc[facility] IM 3+ 00:00:00 [facility] Influenza Virus 2017-04-12 Completed [facility] of [facility]ine [facility] IM 3+ 00:00:00 [facility] Influenza Virus 2017-04-12 Completed [facility] Vaccine [facility] IM 3+ 00:00:00 [facility] Influenza Virus 2017-04-12 Completed [facility] of Vaccine [facility] IM 3+ 00:00:00 [facility] Influenza Virus 2017-04-12 Completed [facility] of Vaccine Quad IM 3+ 00:00:00 [facility] Influenza Virus 2017-04-12 Completed [facility] y of Vaccine [facility] IM 3+ 00:00:00 [facility] Influenza Virus 2017-04-12 Completed [facility] Vacc[facility] IM 3+ 00:00:00 [facility] Influenza Virus 2017-04-12 Completed [facility] Vaccine [facility] IM 3+ 00:00:00 [facility] Influenza Virus 2017-04-12 Completed [facility] y of Vaccine Quad IM 3+ 00:00:00 [facility] HPV9 2017-02-01 Completed [facility] 00:00:00 [facility] HPV9 2017-02-01 Completed [facility] 00:00:00 [facility] HPV9 2017-02-01 Completed [facility] 00:00:00 [facility] HPV9 2017-02-01 Completed [facility] 00:00:00 [facility] HPV9 2017-02-01 Completed [facility] 00:00:00 [facility] HPV9 2017-02-01 Completed [facility] 00:00:00 [facility] HPV9 2017-02-01 Completed [facility] 00:00:00 [facility] HPV9 2017-02-01 Completed [facility] 00:00:00 [facility] HPV9 2017-02-01 Completed [facility] 00:00:00 [facility] HPV9 2017-02-01 Completed [facility] 00:00:00 [facility] HPV9 2017-02-01 Completed [facility] 00:00:00 [facility] HPV9 2017-02-01 Completed [facility] 00:00:00 [facility] HPV9 2017-02-01 Completed [facility] 00:00:00 [facility] HPV9 2017-02-01 Completed [facility] 00:00:00 [facility] HPV9 2017-02-01 Completed [facility] 00:00:00 [facility] HPV9 2017-02-01 Completed [facility] 00:00:00 [facility] HPV9 2017-02-01 Completed [facility] 00:00:00 [facility] HPV9 2017-02-01 Completed [facility] 00:00:00 [facility] HPV9 2017-02-01 Completed [facility] 00:00:00 [facility] HPV9 2017-02-01 Completed [facility] 00:00:00 [facility] HPV9 2017-02-01 Completed [facility] 00:00:00 [facility] HPV9 2017-02-01 Completed [facility] 00:00:00 [facility] HPV9 2017-02-01 Completed [facility] 00:00:00 [facility] HPV9 2017-02-01 Completed [facility] 00:00:00 [facility] HPV9 2017-02-01 Completed [facility] 00:00:00 [facility] HPV9 2017-02-01 Completed [facility] 00:00:00 [facility] HPV9 2017-02-01 Completed [facility] 00:00:00 [facility] HPV9 2017-02-01 Completed [facility] of 00:00:00 [facility] HPV9 2017-02-01 Completed [facility] 00:00:00 [facility] HPV9 2017-02-01 Completed [facility] 00:00:00 [facility] HPV9 2017-02-01 Completed [facility] 00:00:00 [facility] HPV9 2017-02-01 Completed [facility] 00:00:00 [facility] HPV9 2017-02-01 Completed [facility] 00:00:00 [facility] HPV9 2017-02-01 Completed [facility] 00:00:00 [facility] HPV9 2017-02-01 Completed [facility] 00:00:00 [facility] HPV9 2017-02-01 Completed [facility] 00:00:00 [facility] HPV9 2017-02-01 Completed [facility] 00:00:00 [facility] HPV9 2017-02-01 Completed [facility] 00:00:00 [facility] HPV9 2017-02-01 Completed [facility] 00:00:00 [facility] HPV9 2017-02-01 Completed [facility] 00:00:00 [facility] HPV9 2017-02-01 Completed [facility] 00:00:00 [facility] HPV9 2017-02-01 Completed [facility] 00:00:00 [facility] HPV9 2017-02-01 Completed [facility] 00:00:00 [facility] HPV9 2017-02-01 Completed [facility] 00:00:00 [facility] HPV9 2017-02-01 Completed [facility] 00:00:00 [facility] HPV9 2017-02-01 Completed [facility] 00:00:00 [facility] HPV9 2017-02-01 Completed [facility] 00:00:00 [facility] HPV9 2017-02-01 Completed [facility] 00:00:00 [facility] HPV9 2017-02-01 Completed [facility] 00:00:00 [facility] HPV9 2017-02-01 Completed [facility] 00:00:00 [facility] HPV9 2017-02-01 Completed [facility] 00:00:00 [facility] HPV9 2017-02-01 Completed [facility] 00:00:00 [facility] HPV9 2017-02-01 Completed [facility] 00:00:00 [facility] HPV9 2017-02-01 Completed [facility] 00:00:00 [facility] HPV9 2017-02-01 Completed [facility] 00:00:00 [facility] HPV9 2017-02-01 Completed [facility] 00:00:00 [facility] HPV9 2017-02-01 Completed [facility] of [...] Branch HPV 2016-01-20 Completed [facility] 00:00:00 [facility] HPV 2016-01-20 Completed [facility] 00:00:00 [facility] HPV 2016-01-20 Completed [facility] 00:00:00 [facility] HPV 2016-01-20 Completed [facility] 00:00:00 [facility] HPV 2016-01-20 Completed [facility] 00:00:00 [facility] HPV 2016-01-20 Completed [facility] 00:00:00 [facility] HPV 2016-01-20 Completed [facility] 00:00:00 [facility] HPV 2016-01-20 Completed [facility] 00:00:00 [facility] HPV 2016-01-20 Completed [facility] 00:00:00 [facility] HPV 2016-01-20 Completed [facility] 00:00:00 [facility] HPV 2016-01-20 Completed [facility] 00:00:00 [facility] HPV 2016-01-20 Completed [facility] 00:00:00 [facility] HPV 2016-01-20 Completed [facility] 00:00:00 [facility] HPV 2016-01-20 Completed [facility] 00:00:00 [facility] HPV 2016-01-20 Completed [facility] 00:00:00 [facility] HPV 2016-01-20 Completed [facility] 00:00:00 [facility] HPV 2016-01-20 Completed [facility] 00:00:00 [facility] HPV 2016-01-20 Completed [facility] 00:00:00 [facility] HPV 2016-01-20 Completed [facility] 00:00:00 [facility] HPV 2016-01-20 Completed [facility] 00:00:00 [facility] HPV 2016-01-20 Completed [facility] 00:00:00 [facility] HPV 2016-01-20 Completed [facility] 00:00:00 [facility] HPV 2016-01-20 Completed [facility] 00:00:00 [facility] HPV 2016-01-20 Completed [facility] 00:00:00 [facility] HPV 2016-01-20 Completed [facility] 00:00:00 [facility] HPV 2016-01-20 Completed [facility] 00:00:00 [facility] HPV 2016-01-20 Completed [facility] 00:00:00 [facility] HPV 2016-01-20 Completed [facility] 00:00:00 [facility] HPV 2016-01-20 Completed [facility] 00:00:00 [facility] HPV 2016-01-20 Completed [facility] 00:00:00 [facility] HPV 2016-01-20 Completed [facility] 00:00:00 [facility] HPV 2016-01-20 Completed [facility] 00:00:00 [facility] HPV 2016-01-20 Completed [facility] 00:00:00 [facility] HPV 2016-01-20 Completed [facility] 00:00:00 [facility] HPV 2016-01-20 Completed [facility] 00:00:00 [facility] HPV 2016-01-20 Completed [facility] 00:00:00 [facility] HPV 2016-01-20 Completed [facility] 00:00:00 [facility] HPV 2016-01-20 Completed [facility] 00:00:00 [facility] HPV 2016-01-20 Completed [facility] 00:00:00 [facility] HPV 2016-01-20 Completed [facility] 00:00:00 [facility] HPV 2016-01-20 Completed [facility] 00:00:00 [facility] HPV 2016-01-20 Completed [facility] 00:00:00 [facility] HPV 2016-01-20 Completed [facility] 00:00:00 [facility] HPV 2016-01-20 Completed [facility] 00:00:00 [facility] HPV 2016-01-20 Completed [facility] 00:00:00 [facility] HPV 2016-01-20 Completed [facility] 00:00:00 [facility] HPV 2016-01-20 Completed [facility] 00:00:00 [facility] HPV 2016-01-20 Completed [facility] 00:00:00 [facility] Influenza Virus 2015-07-08 Completed [facility] y [facility] Vaccine Quad IM 3+ 00:00:00 [facility] HPV9 2015-07-08 Completed [facility] 00:00:00 [facility] Influenza Virus 2015-07-08 Completed [facility] y of Vaccine Quad IM 3+ 00:00:00 [facility] HPV9 2015-07-08 Completed [facility] 00:00:00 [facility] Influenza Virus 2015-07-08 Completed [facility] y of Vaccine Quad IM 3+ 00:00:00 [facility] HPV9 2015-07-08 Completed [facility] 00:00:00 [facility] Influenza Virus 2015-07-08 Completed [facility] y of Vaccine Quad IM 3+ 00:00:00 [facility] HPV9 2015-07-08 Completed [facility] 00:00:00 [facility] Influenza Virus 2015-07-08 Completed [facility] y of Vaccine Quad IM 3+ 00:00:00 [facility] HPV9 2015-07-08 Completed [facility] 00:00:00 [facility] Influenza Virus 2015-07-08 Completed [facility] y of Vaccine Quad IM 3+ 00:00:00 [facility] HPV9 2015-07-08 Completed [facility] 00:00:00 [facility] Influenza Virus 2015-07-08 Completed [facility] y of Vaccine Quad IM 3+ 00:00:00 [facility] HPV9 2015-07-08 Completed [facility] 00:00:00 [facility] Influenza Virus 2015-07-08 Completed [facility] y of Vaccine Quad IM 3+ 00:00:00 [facility] HPV9 2015-07-08 Completed [facility] 00:00:00 [facility] Influenza Virus 2015-07-08 Completed [facility] y of Vaccine Quad IM 3+ 00:00:00 [facility] HPV9 2015-07-08 Completed [facility] 00:00:00 [facility] Influenza Virus 2015-07-08 Completed [facility] of Vaccine Quad IM 3+ 00:00:00 [facility] HPV9 2015-07-08 Completed [facility] 00:00:00 [facility] Influenza Virus 2015-07-08 Completed [facility] y of Vaccine Quad IM 3+ 00:00:00 [facility] HPV9 2015-07-08 Completed [facility] 00:00:00 [facility] Influenza Virus 2015-07-08 Completed [facility] y of Vaccine Quad IM 3+ 00:00:00 [facility] HPV9 2015-07-08 Completed [facility] 00:00:00 [facility] Influenza Virus 2015-07-08 Completed [facility] y of Vaccine Quad IM 3+ 00:00:00 [facility] HPV9 2015-07-08 Completed [facility] 00:00:00 [facility] Influenza Virus 2015-07-08 Completed [facility] y of Vaccine Quad IM 3+ 00:00:00 [facility] HPV9 2015-07-08 Completed [facility] 00:00:00 [facility] Influenza Virus 2015-07-08 Completed [facility] y of Vaccine Quad IM 3+ 00:00:00 [facility] HPV9 2015-07-08 Completed [facility] 00:00:00 [facility] Influenza Virus 2015-07-08 Completed [facility] y of Vaccine Quad IM 3+ 00:00:00 [facility] HPV9 2015-07-08 Completed [facility] 00:00:00 [facility] Influenza Virus 2015-07-08 Completed [facility] y of Vaccine Quad IM 3+ 00:00:00 [facility] HPV9 2015-07-08 Completed [facility] 00:00:00 [facility] Influenza Virus 2015-07-08 Completed [facility] y of Vaccine Quad IM 3+ 00:00:00 [facility] HPV9 2015-07-08 Completed [facility] 00:00:00 [facility] Influenza Virus 2015-07-08 Completed [facility] y of Vaccine Quad IM 3+ 00:00:00 [facility] HPV9 2015-07-08 Completed [facility] 00:00:00 [facility] Influenza Virus 2015-07-08 Completed [facility] y of Vaccine Quad IM 3+ 00:00:00 [facility] HPV9 2015-07-08 Completed [facility] 00:00:00 [facility] Influenza Virus 2015-07-08 Completed [facility] y of Vaccine Quad IM 3+ 00:00:00 [facility] HPV9 2015-07-08 Completed [facility] 00:00:00 [facility] Influenza Virus 2015-07-08 Completed [facility] y of Vaccine Quad IM 3+ 00:00:00 [facility] HPV9 2015-07-08 Completed [facility] 00:00:00 [facility] Influenza Virus 2015-07-08 Completed [facility] y of Vaccine Quad IM 3+ 00:00:00 [facility] HPV9 2015-07-08 Completed [facility] 00:00:00 [facility] Influenza Virus 2015-07-08 Completed [facility] y of Vaccine Quad IM 3+ 00:00:00 [facility] HPV9 2015-07-08 Completed [facility] 00:00:00 [facility] Influenza Virus 2015-07-08 Completed [facility] y of Vaccine Quad IM 3+ 00:00:00 [facility] HPV9 2015-07-08 Completed [facility] 00:00:00 [facility] Influenza Virus 2015-07-08 Completed [facility] y of Vaccine Quad IM 3+ 00:00:00 [facility] HPV9 2015-07-08 Completed [facility] 00:00:00 [facility] Influenza Virus 2015-07-08 Completed [facility] y of Vaccine Quad IM 3+ 00:00:00 [facility] HPV9 2015-07-08 Completed [facility] 00:00:00 [facility] Influenza Virus 2015-07-08 Completed [facility] y of Vaccine Quad IM 3+ 00:00:00 [facility] HPV9 2015-07-08 Completed [facility] 00:00:00 [facility] Influenza Virus 2015-07-08 Completed [facility] y of Vaccine Quad IM 3+ 00:00:00 [facility] HPV9 2015-07-08 Completed [facility] 00:00:00 [facility] Influenza Virus 2015-07-08 Completed [facility] y of Vaccine Quad IM 3+ 00:00:00 [facility] HPV9 2015-07-08 Completed [facility] 00:00:00 [facility] Influenza Virus 2015-07-08 Completed [facility] y of Vaccine Quad IM 3+ 00:00:00 [facility] HPV9 2015-07-08 Completed [facility] 00:00:00 [facility] Influenza Virus 2015-07-08 Completed [facility] y of Vaccine Quad IM 3+ 00:00:00 [facility] HPV9 2015-07-08 Completed [facility] 00:00:00 [facility] Influenza Virus 2015-07-08 Completed [facility] y of Vaccine Quad IM 3+ 00:00:00 [facility] HPV9 2015-07-08 Completed [facility] 00:00:00 [facility] Influenza Virus 2015-07-08 Completed [facility] y of Vaccine Quad IM 3+ 00:00:00 [facility] HPV9 2015-07-08 Completed [facility] 00:00:00 [facility] Influenza Virus 2015-07-08 Completed [facility] y of Vaccine Quad IM 3+ 00:00:00 [facility] HPV9 2015-07-08 Completed [facility] 00:00:00 [facility] Influenza Virus 2015-07-08 Completed [facility] y of Vaccine Quad IM 3+ 00:00:00 [facility] HPV9 2015-07-08 Completed [facility] 00:00:00 [facility] Influenza Virus 2015-07-08 Completed [facility] y of Vaccine Quad IM 3+ 00:00:00 [facility] HPV9 2015-07-08 Completed [facility] 00:00:00 [facility] Influenza Virus 2015-07-08 Completed [facility] y of Vaccine Quad IM 3+ 00:00:00 [facility] HPV9 2015-07-08 Completed [facility] 00:00:00 [facility] Influenza Virus 2015-07-08 Completed [facility] y of Vaccine Quad IM 3+ 00:00:00 [facility] HPV9 2015-07-08 Completed [facility] 00:00:00 [facility] Influenza Virus 2015-07-08 Completed [facility] y of Vaccine Quad IM 3+ 00:00:00 [facility] HPV9 2015-07-08 Completed [facility] 00:00:00 [facility] Influenza Virus 2015-07-08 Completed [facility] y of Vaccine Quad IM 3+ 00:00:00 [facility] HPV9 2015-07-08 Completed [facility] 00:00:00 [facility] Influenza Virus 2015-07-08 Completed [facility] y of Vaccine Quad IM 3+ 00:00:00 [facility] HPV9 2015-07-08 Completed [facility] 00:00:00 [facility] Influenza Virus 2015-07-08 Completed [facility] y of Vaccine Quad IM 3+ 00:00:00 [facility] HPV9 2015-07-08 Completed [facility] 00:00:00 [facility] Influenza Virus 2015-07-08 Completed [facility] y of Vaccine Quad IM 3+ 00:00:00 [facility] HPV9 2015-07-08 Completed [facility] 00:00:00 [facility] Influenza Virus 2015-07-08 Completed [facility] y of Vaccine Quad IM 3+ 00:00:00 [facility] HPV9 2015-07-08 Completed [facility] 00:00:00 [facility] Influenza Virus 2015-07-08 Completed [facility] y of Vaccine Quad IM 3+ 00:00:00 [facility] HPV9 2015-07-08 Completed [facility] 00:00:00 [facility] Influenza Virus 2015-07-08 Completed [facility] y of Vaccine Quad IM 3+ 00:00:00 [facility] HPV9 2015-07-08 Completed [facility] 00:00:00 [facility] Influenza Virus 2015-07-08 Completed [facility] y of Vaccine Quad IM 3+ 00:00:00 [facility] HPV9 2015-07-08 Completed [facility] 00:00:00 [facility] Influenza Virus 2015-07-08 Completed [facility] y of Vaccine Quad IM 3+ 00:00:00 [facility] HPV9 2015-07-08 Completed [facility] 00:00:00 [facility] Influenza Virus 2015-07-08 Completed [facility] y of Vaccine Quad IM 3+ 00:00:00 [facility] HPV9 2015-07-08 Completed [facility] 00:00:00 [facility] Influenza Virus 2015-07-08 Completed [facility] y of Vaccine Quad IM 3+ 00:00:00 [facility] HPV9 2015-07-08 Completed [facility] 00:00:00 [facility] Influenza Virus 2015-07-08 Completed [facility] y of Vaccine Quad IM 3+ 00:00:00 [facility] HPV9 2015-07-08 Completed [facility] 00:00:00 [facility] Influenza Virus 2015-07-08 Completed [facility] y of Vaccine Quad IM 3+ 00:00:00 [facility] HPV9 2015-07-08 Completed [facility] 00:00:00 [facility] Influenza Virus 2015-07-08 Completed [facility] y of Vaccine Quad IM 3+ 00:00:00 [facility] HPV9 2015-07-08 Completed [facility] 00:00:00 [facility] Influenza Virus 2015-07-08 Completed [facility] of Vaccine Quad IM 3+ 00:00:00 [facility] HPV9 2015-07-08 Completed [facility] 00:00:00 [facility] Influenza Virus 2015-07-08 Completed [facility] of Vaccine Quad IM 3+ 00:00:00 [facility] HPV9 2015-07-08 Completed [facility] 00:00:00 [facility] Influenza Virus 2015-07-08 Completed [facility] of Vaccine Quad IM 3+ 00:00:00 [facility] HPV9 2015-07-08 Completed [facility] 00:00:00 [facility] Influenza Virus 2014-04-02 Completed [facility] y of Vaccine (3+ yrs) 00:00:00 [facility] Influenza Virus 2014-04-02 Completed [facility] y of Vaccine (3+ yrs) 00:00:00 [facility] Influenza Virus 2014-04-02 Completed [facility] y of Vaccine (3+ yrs) 00:00:00 [facility] Influenza Virus 2014-04-02 Completed [facility] y of Vaccine (3+ yrs) 00:00:00 [facility] Influenza Virus 2014-04-02 Completed [facility] of Vaccine (3+ yrs) 00:00:00 [facility] Influenza Virus 2014-04-02 Completed [facility] y of Vaccine (3+ yrs) 00:00:00 [facility] Influenza Virus 2014-04-02 Completed [facility] of Vaccine (3+ yrs) 00:00:00 [facility] Influenza Virus 2014-04-02 Completed [facility] y of Vaccine (3+ yrs) 00:00:00 [facility] Influenza Virus 2014-04-02 Completed [facility] y of Vaccine (3+ yrs) 00:00:00 [facility] Influenza Virus 2014-04-02 Completed [facility] y of Vaccine (3+ yrs) 00:00:00 [facility] Influenza Virus 2014-04-02 Completed [facility] of Vaccine (3+ yrs) 00:00:00 [facility] Influenza Virus 2014-04-02 Completed [facility] of Vaccine (3+ yrs) 00:00:00 [facility] Influenza Virus 2014-04-02 Completed [facility] y of Vaccine (3+ yrs) 00:00:00 [facility] Influenza Virus 2014-04-02 Completed [facility] y of Vaccine (3+ yrs) 00:00:00 [facility] Influenza Virus 2014-04-02 Completed [facility] y of Vaccine (3+ yrs) 00:00:00 [facility] Influenza Virus 2014-04-02 Completed [facility] of Vaccine (3+ yrs) 00:00:00 [facility] Influenza Virus 2014-04-02 Completed [facility] y of Vaccine (3+ yrs) 00:00:00 [facility] Influenza Virus 2014-04-02 Completed [facility] of Vaccine (3+ yrs) 00:00:00 [facility] Influenza Virus 2014-04-02 Completed [facility] of Vaccine (3+ yrs) 00:00:00 [facility] Influenza Virus 2014-04-02 Completed [facility] of Vaccine (3+ yrs) 00:00:00 [facility] Influenza Virus 2014-04-02 Completed [facility] of Vaccine (3+ yrs) 00:00:00 [facility] Influenza Virus 2014-04-02 Completed [facility] of Vaccine (3+ yrs) 00:00:00 [facility] Influenza Virus 2014-04-02 Completed [facility] of Vaccine (3+ yrs) 00:00:00 [facility] Influenza Virus 2014-04-02 Completed [facility] of Vaccine (3+ yrs) 00:00:00 [facility] Influenza Virus 2014-04-02 Completed [facility] of Vaccine (3+ yrs) 00:00:00 [facility] Influenza Virus 2014-04-02 Completed [facility] of Vaccine (3+ yrs) 00:00:00 [facility] Influenza Virus 2014-04-02 Completed [facility] of Vaccine (3+ yrs) 00:00:00 [facility] Influenza Virus 2014-04-02 Completed [facility] of Vaccine (3+ yrs) 00:00:00 [facility] Influenza Virus 2014-04-02 Completed [facility] of Vaccine (3+ yrs) 00:00:00 [facility] Influenza Virus 2014-04-02 Completed [facility] (3[facility] yrs) 00:00:00 [facility] Influenza Virus 2014-04-02 Completed [facility] Vaccine (3+ yrs) 00:00:00 [facility] Influenza Virus 2014-04-02 Completed [facility] Vaccine (3+ yrs) 00:00:00 [facility] Influenza Virus 2014-04-02 Completed [facility] Vaccine (3+ yrs) 00:00:00 [facility] Influenza Virus 2014-04-02 Completed [facility] Vaccine (3+ yrs) 00:00:00 [facility] Influenza Virus 2014-04-02 Completed [facility] Vaccine (3+ yrs) 00:00:00 [facility] Influenza Virus 2014-04-02 Completed [facility] Vaccine (3+ yrs) 00:00:00 [facility] Influenza Virus 2014-04-02 Completed [facility] Vaccine (3+ yrs) 00:00:00 [facility] Influenza Virus 2014-04-02 Completed [facility] Vaccine (3+ yrs) 00:00:00 [facility] Influenza Virus 2014-04-02 Completed [facility] Vaccine (3+ yrs) 00:00:00 [facility] Influenza Virus 2014-04-02 Completed [facility] Vaccine (3+ yrs) 00:00:00 [facility] Influenza Virus 2014-04-02 Completed [facility] Vaccine (3+ yrs) 00:00:00 [facility] Influenza Virus 2014-04-02 Completed [facility] Vaccine (3+ yrs) 00:00:00 [facility] Influenza Virus 2014-04-02 Completed [facility] Vaccine (3+ yrs) 00:00:00 [facility] Influenza Virus 2014-04-02 Completed [facility] Vaccine (3+ yrs) 00:00:00 [facility] Influenza Virus 2014-04-02 Completed [facility] Vaccine (3+ yrs) 00:00:00 [facility] Influenza Virus 2014-04-02 Completed [facility] Vaccine (3+ yrs) 00:00:00 [facility] Influenza Virus 2014-04-02 Completed [facility] Vaccine (3+ yrs) 00:00:00 [facility] Influenza Virus 2014-04-02 Completed [facility] Vaccine (3+ yrs) 00:00:00 [facility] Influenza Virus 2014-04-02 Completed [facility] Vaccine (3+ yrs) 00:00:00 [facility] Influenza Virus 2014-04-02 Completed [facility] Vaccine (3+ yrs) 00:00:00 [facility] Influenza Virus 2014-04-02 Completed [facility] Vaccine (3+ yrs) 00:00:00 [facility] Influenza Virus 2014-04-02 Completed [facility] Vaccine (3+ yrs) 00:00:00 [facility] Influenza Virus 2014-04-02 Completed [facility] Vaccine (3+ yrs) 00:00:00 [facility] Influenza Virus 2014-04-02 Completed [facility] Vaccine (3+ yrs) 00:00:00 [facility] Influenza Virus 2014-04-02 Completed [facility] Vaccine (3+ yrs) 00:00:00 [facility] Influenza Virus 2014-04-02 Completed [facility] Vaccine (3+ yrs) 00:00:00 [facility] Influenza Virus 2014-04-02 Completed [facility] Vaccine (3+ yrs) 00:00:00 [facility] Influenza Virus 2013-05-22 Completed [facility] Vaccine (3+ yrs) 00:00:00 [facility] Meningococcal 2013-05-22 Completed [facility] Polysaccharide 00:00:00 [facility] (groups A, C, Y and Branc h W-135) conjugate vaccine (MCV4P) TDAP 2013-05-22 Completed [facility] 00:00:00 [facility] Influenza Virus 2013-05-22 Completed [facility] Vaccine (3+ yrs) 00:00:00 [facility] Meningococcal 2013-05-22 Completed [facility] Polysaccharide 00:00:00 [facility] (groups A, C, Y and Branc h W-135) conjugate vaccine (MCV4P) TDAP 2013-05-22 Completed [facility] 00:00:00 [facility] Influenza Virus 2013-05-22 Completed [facility] Vaccine (3+ yrs) 00:00:00 [facility] Meningococcal 2013-05-22 Completed [facility] Polysaccharide 00:00:00 [facility] (groups A, C, Y and Branc h W-135) conjugate vaccine (MCV4P) TDAP 2013-05-22 Completed [facility] 00:00:00 [facility] Influenza Virus 2013-05-22 Completed [facility] Vaccine (3+ yrs) 00:00:00 [facility] Meningococcal 2013-05-22 Completed [facility] Polysaccharide 00:00:00 [facility] (groups A, C, Y and Branc h W-135) conjugate vaccine (MCV4P) TDAP 2013-05-22 Completed [facility] 00:00:00 [facility] Influenza Virus 2013-05-22 Completed [facility] Vaccine (3+ yrs) 00:00:00 [facility] Meningococcal 2013-05-22 Completed [facility] Polysaccharide 00:00:00 [facility] (groups A, C, Y and Branc h W-135) conjugate vaccine (MCV4P) TDAP 2013-05-22 Completed [facility] 00:00:00 [facility] Influenza Virus 2013-05-22 Completed [facility] Vaccine (3+ yrs) 00:00:00 [facility] Meningococcal 2013-05-22 Completed [facility] Polysaccharide 00:00:00 [facility] (groups A, C, Y and Branc h W-135) conjugate vaccine (MCV4P) TDAP 2013-05-22 Completed [facility] 00:00:00 [facility] Influenza Virus 2013-05-22 Completed [facility] Vaccine (3+ yrs) 00:00:00 [facility] Meningococcal 2013-05-22 Completed [facility] Polysaccharide 00:00:00 [facility] (groups A, C, Y and Branc h W-135) conjugate vaccine (MCV4P) TDAP 2013-05-22 Completed [facility] 00:00:00 [facility] Influenza Virus 2013-05-22 Completed [facility] Vaccine (3+ yrs) 00:00:00 [facility] Meningococcal 2013-05-22 Completed [facility] Polysaccharide 00:00:00 [facility] (groups A, C, Y and Branc h W-135) conjugate vaccine (MCV4P) TDAP 2013-05-22 Completed [facility] 00:00:00 [facility] Influenza Virus 2013-05-22 Completed [facility] Vaccine (3+ yrs) 00:00:00 [facility] Meningococcal 2013-05-22 Completed [facility] Polysaccharide 00:00:00 [facility] (groups A, C, Y and Branc h W-135) conjugate vaccine (MCV4P) TDAP 2013-05-22 Completed [facility] 00:00:00 [facility] Influenza Virus 2013-05-22 Completed [facility] Vaccine (3+ yrs) 00:00:00 [facility] Meningococcal 2013-05-22 Completed [facility] Polysaccharide 00:00:00 [facility] (groups A, C, Y and Branc h W-135) conjugate vaccine (MCV4P) TDAP 2013-05-22 Completed [facility] 00:00:00 [facility] Influenza Virus 2013-05-22 Completed [facility] Vaccine (3+ yrs) 00:00:00 [facility] Meningococcal 2013-05-22 Completed [facility] Polysaccharide 00:00:00 [facility] (groups A, C, Y and Branc h W-135) conjugate vaccine (MCV4P) TDAP 2013-05-22 Completed [facility] 00:00:00 [facility] Influenza Virus 2013-05-22 Completed [facility] Vaccine (3+ yrs) 00:00:00 [facility] Meningococcal 2013-05-22 Completed [facility] Polysaccharide 00:00:00 [facility] (groups A, C, Y and Branc h W-135) conjugate vaccine (MCV4P) TDAP 2013-05-22 Completed [facility] 00:00:00 [facility] Influenza Virus 2013-05-22 Completed [facility] Vaccine (3+ yrs) 00:00:00 [facility] Meningococcal 2013-05-22 Completed [facility] Polysaccharide 00:00:00 [facility] (groups A, C, Y and Branc h W-135) conjugate vaccine (MCV4P) TDAP 2013-05-22 Completed [facility] 00:00:00 [facility] Influenza Virus 2013-05-22 Completed [facility] Vaccine (3+ yrs) 00:00:00 [facility] Meningococcal 2013-05-22 Completed [facility] Polysaccharide 00:00:00 [facility] (groups A, C, Y and Branc h W-135) conjugate vaccine (MCV4P) TDAP 2013-05-22 Completed [facility] 00:00:00 [facility] Influenza Virus 2013-05-22 Completed [facility] Vaccine (3+ yrs) 00:00:00 [facility] Meningococcal 2013-05-22 Completed [facility] Polysaccharide 00:00:00 [facility] (groups A, C, Y and Branc h W-135) conjugate vaccine (MCV4P) TDAP 2013-05-22 Completed [facility] 00:00:00 [facility] Influenza Virus 2013-05-22 Completed [facility] Vaccine (3+ yrs) 00:00:00 [facility] Meningococcal 2013-05-22 Completed [facility] Polysaccharide 00:00:00 [facility] (groups A, C, Y and Branc h W-135) conjugate vaccine (MCV4P) TDAP 2013-05-22 Completed [facility] 00:00:00 [facility] Influenza Virus 2013-05-22 Completed [facility] Vaccine (3+ yrs) 00:00:00 [facility] Meningococcal 2013-05-22 Completed [facility] Polysaccharide 00:00:00 [facility] (groups A, C, Y and Branc h W-135) conjugate vaccine (MCV4P) TDAP 2013-05-22 Completed [facility] 00:00:00 [facility] Influenza Virus 2013-05-22 Completed [facility] Vaccine (3+ yrs) 00:00:00 [facility] Meningococcal 2013-05-22 Completed [facility] Polysaccharide 00:00:00 [facility] (groups A, C, Y and Branc h W-135) conjugate vaccine (MCV4P) TDAP 2013-05-22 Completed [facility] 00:00:00 [facility] Influenza Virus 2013-05-22 Completed [facility] Vaccine (3+ yrs) 00:00:00 [facility] Meningococcal 2013-05-22 Completed [facility] Polysaccharide 00:00:00 [facility] (groups A, C, Y and Branc h W-135) conjugate vaccine (MCV4P) TDAP 2013-05-22 Completed [facility] 00:00:00 [facility] Influenza Virus 2013-05-22 Completed [facility] Vaccine (3+ yrs) 00:00:00 [facility] Meningococcal 2013-05-22 Completed [facility] Polysaccharide 00:00:00 [facility] (groups A, C, Y and Branc h W-135) conjugate vaccine (MCV4P) TDAP 2013-05-22 Completed [facility] 00:00:00 [facility] Influenza Virus 2013-05-22 Completed [facility] Vaccine (3+ yrs) 00:00:00 [facility] Meningococcal 2013-05-22 Completed [facility] Polysaccharide 00:00:00 [facility] (groups A, C, Y and Branc h W-135) conjugate vaccine (MCV4P) TDAP 2013-05-22 Completed [facility] 00:00:00 [facility] Influenza Virus 2013-05-22 Completed [facility] Vaccine (3+ yrs) 00:00:00 [facility] Meningococcal 2013-05-22 Completed [facility] Polysaccharide 00:00:00 [facility] (groups A, C, Y and Branc h W-135) conjugate vaccine (MCV4P) TDAP 2013-05-22 Completed [facility] 00:00:00 [facility] Influenza Virus 2013-05-22 Completed [facility] Vaccine (3+ yrs) 00:00:00 [facility] Meningococcal 2013-05-22 Completed [facility] Polysaccharide 00:00:00 [facility] (groups A, C, Y and Branc h W-135) conjugate vaccine (MCV4P) TDAP 2013-05-22 Completed [facility] 00:00:00 [facility] Influenza Virus 2013-05-22 Completed [facility] Vaccine (3+ yrs) 00:00:00 [facility] Meningococcal 2013-05-22 Completed [facility] Polysaccharide 00:00:00 [facility] (groups A, C, Y and Branc h W-135) conjugate vaccine (MCV4P) TDAP 2013-05-22 Completed [facility] 00:00:00 [facility] Influenza Virus 2013-05-22 Completed [facility] Vaccine (3+ yrs) 00:00:00 [facility] Meningococcal 2013-05-22 Completed [facility] Polysaccharide 00:00:00 [facility] (groups A, C, Y and Branc h W-135) conjugate vaccine (MCV4P) TDAP 2013-05-22 Completed [facility] 00:00:00 [facility] Influenza Virus 2013-05-22 Completed [facility] Vaccine (3+ yrs) 00:00:00 [facility] Meningococcal 2013-05-22 Completed [facility] Polysaccharide 00:00:00 [facility] (groups A, C, Y and Branc h W-135) conjugate vaccine (MCV4P) TDAP 2013-05-22 Completed [facility] 00:00:00 [facility] Influenza Virus 2013-05-22 Completed [facility] Vaccine (3+ yrs) 00:00:00 [facility] Meningococcal 2013-05-22 Completed [facility] Polysaccharide 00:00:00 [facility] (groups A, C, Y and Branc h W-135) conjugate vaccine (MCV4P) TDAP 2013-05-22 Completed [facility] 00:00:00 [facility] Influenza Virus 2013-05-22 Completed [facility] Vaccine (3+ yrs) 00:00:00 [facility] Meningococcal 2013-05-22 Completed [facility] Polysaccharide 00:00:00 [facility] (groups A, C, Y and Branc h W-135) conjugate vaccine (MCV4P) TDAP 2013-05-22 Completed [facility] 00:00:00 [facility] Influenza Virus 2013-05-22 Completed [facility] Vaccine (3+ yrs) 00:00:00 [facility] Meningococcal 2013-05-22 Completed [facility] Polysaccharide 00:00:00 [facility] (groups A, C, Y and Branc h W-135) conjugate vaccine (MCV4P) TDAP 2013-05-22 Completed [facility] 00:00:00 [facility] Influenza Virus 2013-05-22 Completed [facility] Vaccine (3+ yrs) 00:00:00 [facility] Meningococcal 2013-05-22 Completed [facility] Polysaccharide 00:00:00 [facility] (groups A, C, Y and Branc h W-135) conjugate vaccine (MCV4P) TDAP 2013-05-22 Completed [facility] 00:00:00 [facility] Influenza Virus 2013-05-22 Completed [facility] Vaccine (3+ yrs) 00:00:00 [facility] Meningococcal 2013-05-22 Completed [facility] Polysaccharide 00:00:00 [facility] (groups A, C, Y and Branc h W-135) conjugate vaccine (MCV4P) TDAP 2013-05-22 Completed [facility] 00:00:00 [facility] Influenza Virus 2013-05-22 Completed [facility] Vaccine (3+ yrs) 00:00:00 [facility] Meningococcal 2013-05-22 Completed [facility] Polysaccharide 00:00:00 [facility] (groups A, C, Y and Branc h W-135) conjugate vaccine (MCV4P) TDAP 2013-05-22 Completed [facility] 00:00:00 [facility] Influenza Virus 2013-05-22 Completed [facility] Vaccine (3+ yrs) 00:00:00 [facility] Meningococcal 2013-05-22 Completed [facility] Polysaccharide 00:00:00 [facility] (groups A, C, Y and Branc h W-135) conjugate vaccine (MCV4P) TDAP 2013-05-22 Completed [facility] 00:00:00 [facility] Influenza Virus 2013-05-22 Completed [facility] Vaccine (3+ yrs) 00:00:00 [facility] Meningococcal 2013-05-22 Completed [facility] Polysaccharide 00:00:00 [facility] (groups A, C, Y and Branc h W-135) conjugate vaccine (MCV4P) TDAP 2013-05-22 Completed [facility] 00:00:00 [facility] Influenza Virus 2013-05-22 Completed [facility] Vaccine (3+ yrs) 00:00:00 [facility] Meningococcal 2013-05-22 Completed [facility] Polysaccharide 00:00:00 [facility] (groups A, C, Y and Branc h W-135) conjugate vaccine (MCV4P) TDAP 2013-05-22 Completed [facility] 00:00:00 [facility] Influenza Virus 2013-05-22 Completed [facility] Vaccine (3+ yrs) 00:00:00 [facility] Meningococcal 2013-05-22 Completed [facility] Polysaccharide 00:00:00 [facility] (groups A, C, Y and Branc h W-135) conjugate vaccine (MCV4P) TDAP 2013-05-22 Completed [facility] 00:00:00 [facility] Influenza Virus 2013-05-22 Completed [facility] Vaccine (3+ yrs) 00:00:00 [facility] Meningococcal 2013-05-22 Completed [facility] Polysaccharide 00:00:00 [facility] (groups A, C, Y and Branc h W-135) conjugate vaccine (MCV4P) TDAP 2013-05-22 Completed [facility] 00:00:00 [facility] Influenza Virus 2013-05-22 Completed [facility] Vaccine (3+ yrs) 00:00:00 [facility] Meningococcal 2013-05-22 Completed [facility] Polysaccharide 00:00:00 [facility] (groups A, C, Y and Branc h W-135) conjugate vaccine (MCV4P) TDAP 2013-05-22 Completed [facility] 00:00:00 [facility] Influenza Virus 2013-05-22 Completed [facility] Vaccine (3+ yrs) 00:00:00 [facility] Meningococcal 2013-05-22 Completed [facility] Polysaccharide 00:00:00 [facility] (groups A, C, Y and Branc h W-135) conjugate vaccine (MCV4P) TDAP 2013-05-22 Completed [facility] 00:00:00 [facility] Influenza Virus 2013-05-22 Completed [facility] Vaccine (3+ yrs) 00:00:00 [facility] Meningococcal 2013-05-22 Completed [facility] Polysaccharide 00:00:00 [facility] (groups A, C, Y and Branc h W-135) conjugate vaccine (MCV4P) TDAP 2013-05-22 Completed [facility] 00:00:00 [facility] Influenza Virus 2013-05-22 Completed [facility] Vaccine (3+ yrs) 00:00:00 [facility] Meningococcal 2013-05-22 Completed [facility] Polysaccharide 00:00:00 [facility] (groups A, C, Y and Branc h W-135) conjugate vaccine (MCV4P) TDAP 2013-05-22 Completed [facility] 00:00:00 [facility] Influenza Virus 2013-05-22 Completed [facility] Vaccine (3+ yrs) 00:00:00 [facility] Meningococcal 2013-05-22 Completed [facility] Polysaccharide 00:00:00 [facility] (groups A, C, Y and Branc h W-135) conjugate vaccine (MCV4P) TDAP 2013-05-22 Completed [facility] 00:00:00 [facility] Influenza Virus 2013-05-22 Completed [facility] Vaccine (3+ yrs) 00:00:00 [facility] Meningococcal 2013-05-22 Completed [facility] Polysaccharide 00:00:00 [facility] (groups A, C, Y and Branc h W-135) conjugate vaccine (MCV4P) TDAP 2013-05-22 Completed [facility] 00:00:00 [facility] Influenza Virus 2013-05-22 Completed [facility] Vaccine (3+ yrs) 00:00:00 [facility] Meningococcal 2013-05-22 Completed [facility] Polysaccharide 00:00:00 [facility] (groups A, C, Y and Branc h W-135) conjugate vaccine (MCV4P) TDAP 2013-05-22 Completed [facility] 00:00:00 [facility] Influenza Virus 2013-05-22 Completed [facility] Vaccine (3+ yrs) 00:00:00 [facility] Meningococcal 2013-05-22 Completed [facility] Polysaccharide 00:00:00 [facility] (groups A, C, Y and Branc h W-135) conjugate vaccine (MCV4P) TDAP 2013-05-22 Completed [facility] 00:00:00 [facility] Influenza Virus 2013-05-22 Completed [facility] Vaccine (3+ yrs) 00:00:00 [facility] Meningococcal 2013-05-22 Completed [facility] Polysaccharide 00:00:00 [facility] (groups A, C, Y and Branc h W-135) conjugate vaccine (MCV4P) TDAP 2013-05-22 Completed [facility] 00:00:00 [facility] Influenza Virus 2013-05-22 Completed [facility] Vaccine (3+ yrs) 00:00:00 [facility] Meningococcal 2013-05-22 Completed [facility] Polysaccharide 00:00:00 [facility] (groups A, C, Y and Branc h W-135) conjugate vaccine (MCV4P) TDAP 2013-05-22 Completed [facility] 00:00:00 [facility] Influenza Virus 2013-05-22 Completed [facility] Vaccine (3+ yrs) 00:00:00 [facility] Meningococcal 2013-05-22 Completed [facility] Polysaccharide 00:00:00 [facility] (groups A, C, Y and Branc h W-135) conjugate vaccine (MCV4P) TDAP 2013-05-22 Completed [facility] 00:00:00 [facility] Influenza Virus 2013-05-22 Completed [facility] Vaccine (3+ yrs) 00:00:00 [facility] Meningococcal 2013-05-22 Completed [facility] Polysaccharide 00:00:00 [facility] (groups A, C, Y and Branc h W-135) conjugate vaccine (MCV4P) TDAP 2013-05-22 Completed [facility] 00:00:00 [facility] Influenza Virus 2013-05-22 Completed [facility] Vaccine (3+ yrs) 00:00:00 [facility] Meningococcal 2013-05-22 Completed [facility] Polysaccharide 00:00:00 [facility] (groups A, C, Y and Branc h W-135) conjugate vaccine (MCV4P) TDAP 2013-05-22 Completed [facility] 00:00:00 [facility] Influenza Virus 2013-05-22 Completed [facility] Vaccine (3+ yrs) 00:00:00 [facility] Meningococcal 2013-05-22 Completed [facility] Polysaccharide 00:00:00 [facility] (groups A, C, Y and Branc h W-135) conjugate vaccine (MCV4P) TDAP 2013-05-22 Completed [facility] 00:00:00 [facility] Influenza Virus 2013-05-22 Completed [facility] Vaccine (3+ yrs) 00:00:00 [facility] Meningococcal 2013-05-22 Completed [facility] Polysaccharide 00:00:00 [facility] (groups A, C, Y and Branc h W-135) conjugate vaccine (MCV4P) TDAP 2013-05-22 Completed [facility] 00:00:00 [facility] Influenza Virus 2013-05-22 Completed [facility] Vaccine (3+ yrs) 00:00:00 [facility] Meningococcal 2013-05-22 Completed [facility] Polysaccharide 00:00:00 [facility] (groups A, C, Y and Branc h W-135) conjugate vaccine (MCV4P) TDAP 2013-05-22 Completed [facility] 00:00:00 [facility] Influenza Virus 2013-05-22 Completed [facility] Vaccine (3+ yrs) 00:00:00 [facility] Meningococcal 2013-05-22 Completed [facility] Polysaccharide 00:00:00 [facility] (groups A, C, Y and Branc h W-135) conjugate vaccine (MCV4P) TDAP 2013-05-22 Completed [facility] 00:00:00 [facility] Influenza Virus 2013-05-22 Completed [facility] Vaccine (3+ yrs) 00:00:00 [facility] Meningococcal 2013-05-22 Completed [facility] Polysaccharide 00:00:00 [facility] (groups A, C, Y and Branc h W-135) conjugate vaccine (MCV4P) TDAP 2013-05-22 Completed [facility] 00:00:00 [facility] Influenza Virus 2013-05-22 Completed [facility] Vaccine (3+ yrs) 00:00:00 [facility] Meningococcal 2013-05-22 Completed [facility] Polysaccharide 00:00:00 [facility] (groups A, C, Y and Branc h W-135) conjugate vaccine (MCV4P) TDAP 2013-05-22 Completed [facility] 00:00:00 [facility] Influenza Virus 2013-05-22 Completed [facility] Vaccine (3+ yrs) 00:00:00 [facility] Meningococcal 2013-05-22 Completed [facility] Polysaccharide 00:00:00 [facility] (groups A, C, Y and Branc h W-135) conjugate vaccine (MCV4P) TDAP 2013-05-22 Completed [facility] 00:00:00 [facility] Influenza Virus 2012-06-13 Completed [facility] Vaccine 00:00:00 [facility] Influenza Virus 2012-06-13 Completed [facility] Vaccine 00:00:00 [facility] Influenza Virus 2012-06-13 Completed [facility] Vaccine 00:00:00 [facility] Influenza Virus 2012-06-13 Completed [facility] Vaccine 00:00:00 [facility] Influenza Virus 2012-06-13 Completed [facility] Vaccine 00:00:00 [facility] Influenza Virus 2012-06-13 Completed [facility] Vaccine 00:00:00 [facility] Influenza Virus 2012-06-13 Completed [facility] Vaccine 00:00:00 [facility] Influenza Virus 2012-06-13 Completed [facility] Vaccine 00:00:00 [facility] Influenza Virus 2012-06-13 Completed [facility] Vaccine 00:00:00 [facility] Influenza Virus 2012-06-13 Completed [facility] Vaccine 00:00:00 [facility] Influenza Virus 2012-06-13 Completed [facility] Vaccine 00:00:00 [facility] Influenza Virus 2012-06-13 Completed [facility] Vaccine 00[facility]00:00 [facility] Influenza Virus 2012-06-13 Completed [facility]00 [facility] Influenza Virus 2012-06-13 Completed [facility] 00:00:00 [facility] Influenza Virus 2012-06-13 Completed [facility] 00[facility]00:00 [facility] Influenza Virus 2012-06-13 Completed [facility] 00[facility]00:00 [facility] Influenza Virus 2012-06-13 Completed [facility] 00[facility]00:00 [facility] Influenza Virus 2012-06-13 Completed [facility] 00[facility]00:00 [facility] Influenza Virus 2012-06-13 Completed [facility] 00:00:00 [facility] Influenza Virus 2012-06-13 Completed [facility] 00[facility]00:00 [facility] Influenza Virus 2012-06-13 Completed [facility] 00:00:00 [facility] Influenza Virus 2012-06-13 Completed [facility] 00[facility]00:00 [facility] Influenza Virus 2012-06-13 Completed [facility] 00:00:00 [facility] Influenza Virus 2012-06-13 Completed [facility] 00:00:00 [facility] Influenza Virus 2012-06-13 Completed [facility]ine 00:00:00 [facility] Influenza Virus 2012-06-13 Completed [facility]ine 00:00:00 [facility] Influenza Virus 2012-06-13 Completed [facility] 00:00:00 [facility] Influenza Virus 2012-06-13 Completed [facility] 00:00:00 [facility] Influenza Virus 2012-06-13 Completed [facility] 00[facility]00:00 [facility] Influenza Virus 2012-06-13 Completed [facility] 00:00:00 [facility] Influenza Virus 2012-06-13 Completed [facility] 00[facility]00:00 [facility] Influenza Virus 2012-06-13 Completed [facility] 00:00:00 [facility] Influenza Virus 2012-06-13 Completed [facility] 00[facility]00:00 [facility] Influenza Virus 2012-06-13 Completed [facility] 00:00:00 [facility] Influenza Virus 2012-06-13 Completed [facility] 00[facility]00:00 [facility] Influenza Virus 2012-06-13 Completed [facility] 00:00:00 [facility] Influenza Virus 2012-06-13 Completed [facility] 00[facility]00:00 [facility] Influenza Virus 2012-06-13 Completed [facility] 00:00:00 [facility] Influenza Virus 2012-06-13 Completed [facility] 00:00:00 [facility] Influenza Virus 2012-06-13 Completed [facility] 00:00:00 [facility] Influenza Virus 2012-06-13 Completed [facility] 00:00:00 [facility] Influenza Virus 2012-06-13 Completed [facility] 00:00:00 [facility] Influenza Virus 2012-06-13 Completed [facility] 00:00:00 [facility] Influenza Virus 2012-06-13 Completed [facility] 00:00:00 [facility] Influenza Virus 2012-06-13 Completed [facility] 00:00:00 [facility] Influenza Virus 2012-06-13 Completed [facility] 00:00:00 [facility] Influenza Virus 2012-06-13 Completed [facility] 00:00:00 [facility] Influenza Virus 2012-06-13 Completed [facility] 00[facility]00:00 [facility] Influenza Virus 2012-06-13 Completed [facility] 00:00:00 [facility] Influenza Virus 2012-06-13 Completed [facility] 00[facility]00:00 [facility] Influenza Virus 2012-06-13 Completed [facility] 00:00:00 [facility] Influenza Virus 2012-06-13 Completed [facility] 00:00:00 [facility] Influenza Virus 2012-06-13 Completed [facility] 00:00:00 [facility] Influenza Virus 2012-06-13 Completed [facility] 00:00:00 [facility] Influenza Virus 2012-06-13 Completed [facility] 00:00:00 [facility] Influenza Virus 2012-06-13 Completed [facility] 00:00:00 [facility] Influenza Virus 2012-06-13 Completed [facility] 00[facility]00:00 [facility] Influenza Virus 2011-05-18 Completed [facility] 00:00:00 [facility] Influenza Virus 2011-05-18 Completed [facility] 00:00:00 [facility] Influenza Virus 2011-05-18 Completed [facility] 00:00:00 [facility] Influenza Virus 2011-05-18 Completed [facility] 00:00:00 [facility] Influenza Virus 2011-05-18 Completed [facility] 00:00:00 [facility] Influenza Virus 2011-05-18 Completed [facility] 00:00:00 [facility] Influenza Virus 2011-05-18 Completed [facility] 00:00:00 [facility] Influenza Virus 2011-05-18 Completed [facility] 00:00:00 [facility] Influenza Virus 2011-05-18 Completed [facility] 00:00:00 [facility] Influenza Virus 2011-05-18 Completed [facility] 00:00:00 [facility] Influenza Virus 2011-05-18 Completed [facility] 00:00:00 [facility] Influenza Virus 2011-05-18 Completed [facility] 00:00:00 [facility] Influenza Virus 2011-05-18 Completed [facility] 00:00:00 [facility] Influenza Virus 2011-05-18 Completed [facility] 00:00:00 [facility] Influenza Virus 2011-05-18 Completed [facility] 00:00:00 [facility] Influenza Virus 2011-05-18 Completed [facility] 00:00:00 [facility] Influenza Virus 2011-05-18 Completed [facility] 00:00:00 [facility] Influenza Virus 2011-05-18 Completed [facility] 00[facility]00:00 [facility] Influenza Virus 2011-05-18 Completed [facility] 00:00:00 [facility] Influenza Virus 2011-05-18 Completed [facility] 00:00:00 [facility] Influenza Virus 2011-05-18 Completed [facility] 00:00:00 [facility] Influenza Virus 2011-05-18 Completed [facility] 00:00:00 [facility] Influenza Virus 2011-05-18 Completed [facility] 00:00:00 [facility] Influenza Virus 2011-05-18 Completed [facility] 00:00:00 [facility] Influenza Virus 2011-05-18 Completed [facility] 00:00:00 [facility] Influenza Virus 2011-05-18 Completed [facility] 00:00:00 [facility] Influenza Virus 2011-05-18 Completed [facility] 00:00:00 [facility] Influenza Virus 2011-05-18 Completed [facility] 00:00:00 [facility] Influenza Virus 2011-05-18 Completed [facility] 00:00:00 [facility] Influenza Virus 2011-05-18 Completed [facility] 00:00:00 [facility] Influenza Virus 2011-05-18 Completed [facility] 00:00:00 [facility] Influenza Virus 2011-05-18 Completed [facility] 00:00:00 [facility] Influenza Virus 2011-05-18 Completed [facility] 00:00:00 [facility] Influenza Virus 2011-05-18 Completed [facility]ine 00:00:00 [facility] Influenza Virus 2011-05-18 Completed [facility] 00:00:00 [facility] Influenza Virus 2011-05-18 Completed [facility] 00:00:00 [facility] Influenza Virus 2011-05-18 Completed [facility] 00:00:00 [facility] Influenza Virus 2011-05-18 Completed [facility] 00:00:00 [facility] Influenza Virus 2011-05-18 Completed [facility] 00:00:00 [facility] Influenza Virus 2011-05-18 Completed [facility] 00:00:00 [facility] Influenza Virus 2011-05-18 Completed [facility] 00:00:00 [facility] Influenza Virus 2011-05-18 Completed [facility] 00:00:00 [facility] Influenza Virus 2011-05-18 Completed [facility] 00:00:00 [facility] Influenza Virus 2011-05-18 Completed [facility] 00:00:00 [facility] Influenza Virus 2011-05-18 Completed [facility] 00:00:00 [facility] Influenza Virus 2011-05-18 Completed [facility] 00:00:00 [facility] Influenza Virus 2011-05-18 Completed [facility] 00:00:00 [facility] Influenza Virus 2011-05-18 Completed [facility] 00:00:00 [facility] Influenza Virus 2011-05-18 Completed [facility] 00:00:00 [facility] Influenza Virus 2011-05-18 Completed [facility] 00:00:00 [facility] Influenza Virus 2011-05-18 Completed [facility] 00:00:00 [facility] Influenza Virus 2011-05-18 Completed [facility] 00:00:00 [facility] Influenza Virus 2011-05-18 Completed [facility]ine 00:00:00 [facility] Influenza Virus 2011-05-18 Completed [facility] 00:00:00 [facility] Influenza Virus 2011-05-18 Completed [facility] 00:00:00 [facility] Influenza Virus 2011-05-18 Completed [facility] 00:00:00 [facility] Influenza Virus 2011-05-18 Completed [facility] 00:00:00 [facility] Influenza Virus 2010-05-26 Completed [facility] 00:00:00 [facility] Influenza Virus 2010-05-26 Completed [facility]ine 00:00:00 [facility] Influenza Virus 2010-05-26 Completed [facility] 00:00:00 [facility] Influenza Virus 2010-05-26 Completed [facility]ine 00:00:00 [facility] Influenza Virus 2010-05-26 Completed [facility]ine 00:00:00 [facility] Influenza Virus 2010-05-26 Completed [facility] 00:00:00 [facility] Influenza Virus 2010-05-26 Completed [facility] 00:00:00 [facility] Influenza Virus 2010-05-26 Completed [facility] 00:00:00 [facility] Influenza Virus 2010-05-26 Completed [facility] 00:00:00 [facility] Influenza Virus 2010-05-26 Completed [facility] 00:00:00 [facility] Influenza Virus 2010-05-26 Completed [facility] 00:00:00 [facility] Influenza Virus 2010-05-26 Completed [facility] 00:00:00 [facility] Influenza Virus 2010-05-26 Completed [facility] 00:00:00 [facility] Influenza Virus 2010-05-26 Completed [facility]ine 00:00:00 [facility] Influenza Virus 2010-05-26 Completed [facility] 00:00:00 [facility] Influenza Virus 2010-05-26 Completed [facility] 00:00:00 [facility] Influenza Virus 2010-05-26 Completed [facility] 00[facility]00:00 [facility] Influenza Virus 2010-05-26 Completed [facility] 00:00:00 [facility] Influenza Virus 2010-05-26 Completed [facility]ine 00:00:00 [facility] Influenza Virus 2010-05-26 Completed [facility] Vaccine 00[facility]00:00 [facility] Influenza Virus 2010-05-26 Completed [facility] 00:00:00 [facility] Influenza Virus 2010-05-26 Completed [facility] 00:00:00 [facility] Influenza Virus 2010-05-26 Completed [facility] 00:00:00 [facility] Influenza Virus 2010-05-26 Completed [facility]ine 00:00:00 [facility] Influenza Virus 2010-05-26 Completed [facility] 00:00:00 [facility] Influenza Virus 2010-05-26 Completed [facility]ine 00:00:00 [facility] Influenza Virus 2010-05-26 Completed [facility] 00:00:00 [facility] Influenza Virus 2010-05-26 Completed [facility] 00:00:00 [facility] Influenza Virus 2010-05-26 Completed [facility]ine 00:00:00 [facility] Influenza Virus 2010-05-26 Completed [facility] 00:00:00 [facility] Influenza Virus 2010-05-26 Completed [facility] 00:00:00 [facility] Influenza Virus 2010-05-26 Completed [facility] 00:00:00 [facility] Influenza Virus 2010-05-26 Completed [facility] 00:00:00 [facility] Influenza Virus 2010-05-26 Completed [facility] 00[facility]00:00 [facility] Influenza Virus 2010-05-26 Completed [facility] 00[facility]00:00 [facility] Influenza Virus 2010-05-26 Completed [facility] 00:00:00 [facility] Influenza Virus 2010-05-26 Completed [facility] 00:00:00 [facility] Influenza Virus 2010-05-26 Completed [facility] 00[facility]00:00 [facility] Influenza Virus 2010-05-26 Completed [facility] 00:00:00 [facility] Influenza Virus 2010-05-26 Completed [facility] 00:00:00 [facility] Influenza Virus 2010-05-26 Completed [facility] 00:00:00 [facility] Influenza Virus 2010-05-26 Completed [facility] 00:00:00 [facility] Influenza Virus 2010-05-26 Completed [facility] 00:00:00 [facility] Influenza Virus 2010-05-26 Completed [facility] 00:00:00 [facility] Influenza Virus 2010-05-26 Completed [facility] 00:00:00 [facility] Influenza Virus 2010-05-26 Completed [facility] 00:00:00 [facility] Influenza Virus 2010-05-26 Completed [facility] 00:00:00 [facility] Influenza Virus 2010-05-26 Completed [facility] 00:00:00 [facility] Influenza Virus 2010-05-26 Completed [facility] 00:00:00 [facility] Influenza Virus 2010-05-26 Completed [facility] 00:00:00 [facility] Influenza Virus 2010-05-26 Completed [facility]ine 00:00:00 [facility] Influenza Virus 2010-05-26 Completed [facility] 00:00:00 [facility] Influenza Virus 2010-05-26 Completed [facility]ine 00:00:00 [facility] Influenza Virus 2010-05-26 Completed [facility]ine 00:00:00 [facility] Influenza Virus 2010-05-26 Completed [facility] 00:00:00 [facility] Influenza Virus 2010-05-26 Completed [facility] 00:00:00 [facility] Influenza Virus 2010-05-26 Completed [facility] 00:00:00 [facility] Influenza Virus 2009-06-23 Completed [facility]ine 00:00:00 [facility] Influenza Virus 2009-06-23 Completed [facility]ine 00:00:00 [facility] Influenza Virus 2009-06-23 Completed [facility]ine 00:00:00 [facility] Influenza Virus 2009-06-23 Completed [facility]ine 00:00:00 [facility] Influenza Virus 2009-06-23 Completed [facility]ine 00:00:00 [facility] Influenza Virus 2009-06-23 Completed [facility]ine 00:00:00 [facility] Influenza Virus 2009-06-23 Completed [facility]ine 00:00:00 [facility] Influenza Virus 2009-06-23 Completed [facility]ine 00:00:00 [facility] Influenza Virus 2009-06-23 Completed [facility] 00:00:00 [facility] Influenza Virus 2009-06-23 Completed [facility] 00:00:00 [facility] Influenza Virus 2009-06-23 Completed [facility]ine 00:00:00 [facility] Influenza Virus 2009-06-23 Completed [facility] 00:00:00 [facility] Influenza Virus 2009-06-23 Completed [facility]ine 00:00:00 [facility] Influenza Virus 2009-06-23 Completed [facility] 00:00:00 [facility] Influenza Virus 2009-06-23 Completed [facility]ine 00:00:00 [facility] Influenza Virus 2009-06-23 Completed [facility]ine 00:00:00 [facility] Influenza Virus 2009-06-23 Completed [facility]ine 00:00:00 [facility] Influenza Virus 2009-06-23 Completed [facility] 00:00:00 [facility] Influenza Virus 2009-06-23 Completed [facility] 00:00:00 [facility] Influenza Virus 2009-06-23 Completed [facility]ine 00:00:00 [facility] Influenza Virus 2009-06-23 Completed [facility]ine 00:00:00 [facility] Influenza Virus 2009-06-23 Completed [facility] 00:00:00 [facility] Influenza Virus 2009-06-23 Completed [facility] 00:00:00 [facility] Influenza Virus 2009-06-23 Completed [facility]ine 00:00:00 [facility] Influenza Virus 2009-06-23 Completed [facility] 00:00:00 [facility] Influenza Virus 2009-06-23 Completed [facility] 00:00:00 [facility] Influenza Virus 2009-06-23 Completed [facility] 00:00:00 [facility] Influenza Virus 2009-06-23 Completed [facility] 00:00:00 [facility] Influenza Virus 2009-06-23 Completed [facility]ine 00:00:00 [facility] Influenza Virus 2009-06-23 Completed [facility]ine 00:00:00 [facility] Influenza Virus 2009-06-23 Completed [facility] 00:00:00 [facility] Influenza Virus 2009-06-23 Completed [facility] 00:00:00 [facility] Influenza Virus 2009-06-23 Completed [facility]ine 00:00:00 [facility] Influenza Virus 2009-06-23 Completed [facility]ine 00:00:00 [facility] Influenza Virus 2009-06-23 Completed [facility]ine 00:00:00 [facility] Influenza Virus 2009-06-23 Completed [facility] 00:00:00 [facility] Influenza Virus 2009-06-23 Completed [facility]ine 00:00:00 [facility] Influenza Virus 2009-06-23 Completed [facility] 00:00:00 [facility] Influenza Virus 2009-06-23 Completed [facility] 00:00:00 [facility] Influenza Virus 2009-06-23 Completed [facility] 00:00:00 [facility] Influenza Virus 2009-06-23 Completed [facility] 00:00:00 [facility] Influenza Virus 2009-06-23 Completed [facility]ine 00:00:00 [facility] Influenza Virus 2009-06-23 Completed [facility] 00:00:00 [facility] Influenza Virus 2009-06-23 Completed [facility] 00:00:00 [facility] Influenza Virus 2009-06-23 Completed [facility] 00:00:00 [facility] Influenza Virus 2009-06-23 Completed [facility] 00:00:00 [facility] Influenza Virus 2009-06-23 Completed [facility] 00:00:00 [facility] Influenza Virus 2009-06-23 Completed [facility] 00:00:00 [facility] Influenza Virus 2009-06-23 Completed [facility] 00:00:00 [facility] Influenza Virus 2009-06-23 Completed [facility] 00:00:00 [facility] Influenza Virus 2009-06-23 Completed [facility] 00:00:00 [facility] Influenza Virus 2009-06-23 Completed [facility] 00:00:00 [facility] Influenza Virus 2009-06-23 Completed [facility] 00:00:00 [facility] Influenza Virus 2009-06-23 Completed [facility] 00:00:00 [facility] Influenza Virus 2009-06-23 Completed [facility] 00:00:00 [facility] Influenza Virus 2009-06-23 Completed [facility] 00:00:00 [facility] Influenza Virus 2009-06-23 Completed [facility] 00:00:00 [facility] Influenza Virus 2009-05-20 Completed [facility] 00:00:00 [facility] Influenza Virus 2009-05-20 Completed [facility] 00:00:00 [facility] Influenza Virus 2009-05-20 Completed [facility]ine 00:00:00 [facility] Influenza Virus 2009-05-20 Completed [facility]ine 00:00:00 [facility] Influenza Virus 2009-05-20 Completed [facility]ine 00:00:00 [facility] Influenza Virus 2009-05-20 Completed [facility] 00:00:00 [facility] Influenza Virus 2009-05-20 Completed [facility] 00:00:00 [facility] Influenza Virus 2009-05-20 Completed [facility] 00:00:00 [facility] Influenza Virus 2009-05-20 Completed [facility]ine 00:00:00 [facility] Influenza Virus 2009-05-20 Completed [facility] 00:00:00 [facility] Influenza Virus 2009-05-20 Completed [facility] 00:00:00 [facility] Influenza Virus 2009-05-20 Completed [facility] 00:00:00 [facility] Influenza Virus 2009-05-20 Completed [facility]ine 00:00:00 [facility] Influenza Virus 2009-05-20 Completed [facility] 00:00:00 [facility] Influenza Virus 2009-05-20 Completed [facility] 00:00:00 [facility] Influenza Virus 2009-05-20 Completed [facility] 00:00:00 [facility] Influenza Virus 2009-05-20 Completed [facility] 00:00:00 [facility] Influenza Virus 2009-05-20 Completed [facility] 00:00:00 [facility] Influenza Virus 2009-05-20 Completed [facility] 00:00:00 [facility] Influenza Virus 2009-05-20 Completed [facility] 00:00:00 [facility] Influenza Virus 2009-05-20 Completed [facility] 00:00:00 [facility] Influenza Virus 2009-05-20 Completed [facility] 00[facility]00:00 [facility] Influenza Virus 2009-05-20 Completed [facility] 00[facility]00:00 [facility] Influenza Virus 2009-05-20 Completed [facility] 00[facility]00:00 [facility] Influenza Virus 2009-05-20 Completed [facility] 00:00:00 [facility] Influenza Virus 2009-05-20 Completed [facility] [facility] Influenza Virus 2009-05-20 Completed [facility] Vaccine 00:00:00 [facility] Influenza Virus 2009-05-20 Completed [facility] Vaccine 00[facility]00:00 [facility] Influenza Virus 2009-05-20 Completed [facility] Vaccine 00[facility]00:00 [facility] Influenza Virus 2009-05-20 Completed [facility] Vaccine 00[facility]00:00 [facility] Influenza Virus 2009-05-20 Completed [facility] Vaccine 00[facility]00:00 [facility] Influenza Virus 2009-05-20 Completed [facility] Vaccine 00[facility]00:00 [facility] Influenza Virus 2009-05-20 Completed [facility] Vaccine 00[facility]00:00 [facility] Influenza Virus 2009-05-20 Completed [facility] Vaccine 00[facility]00:00 [facility] Influenza Virus 2009-05-20 Completed [facility] Vaccine 00[facility]00:00 [facility] Influenza Virus 2009-05-20 Completed [facility] Vaccine 00[facility]00:00 [facility] Influenza Virus 2009-05-20 Completed [facility] Vaccine 00[facility]00:00 [facility] Influenza Virus 2009-05-20 Completed [facility] Vaccine 00[facility]00:00 [facility] Influenza Virus 2009-05-20 Completed [facility] Vaccine 00[facility]00:00 [facility] Influenza Virus 2009-05-20 Completed [facility] Vaccine 00[facility]00:00 [facility] Influenza Virus 2009-05-20 Completed [facility] Vaccine 00:00:00 [facility] Influenza Virus 2009-05-20 Completed [facility] Vaccine 00[facility]00:00 [facility] Influenza Virus 2009-05-20 Completed [facility] Vaccine 00:00:00 [facility] Influenza Virus 2009-05-20 Completed [facility] Vaccine 00:00:00 [facility] Influenza Virus 2009-05-20 Completed [facility] Vaccine 00:00:00 [facility] Influenza Virus 2009-05-20 Completed [facility] Vaccine 00:00:00 [facility] Influenza Virus 2009-05-20 Completed [facility] Vaccine 00:00:00 [facility] Influenza Virus 2009-05-20 Completed [facility] Vaccine 00:00:00 [facility] Influenza Virus 2009-05-20 Completed [facility] Vaccine 00:00:00 [facility] Influenza Virus 2009-05-20 Completed [facility] Vaccine 00:00:00 [facility] Influenza Virus 2009-05-20 Completed [facility] Vaccine 00:00:00 [facility] Influenza Virus 2009-05-20 Completed [facility] Vaccine 00:00:00 [facility] Influenza Virus 2009-05-20 Completed [facility] Vaccine 00:00:00 [facility] Influenza Virus 2009-05-20 Completed [facility] Vaccine 00:00:00 [facility] Influenza Virus 2009-05-20 Completed [facility] Vaccine 00:00:00 [facility] Influenza Virus 2009-05-20 Completed [facility] Vaccine 00:00:00 [facility] Influenza Virus 2009-05-20 Completed [facility] Vaccine 00:00:00 [facility] Influenza Virus 2007-06-01 Completed [facility] Vaccine 00:00:00 [facility] Influenza Virus 2007-06-01 Completed [facility] Vaccine 00:00:00 [facility] Influenza Virus 2007-06-01 Completed [facility] Vaccine 00:00:00 [facility] Influenza Virus 2007-06-01 Completed [facility] Vaccine 00:00:00 [facility] Influenza Virus 2007-06-01 Completed [facility] Vaccine 00:00:00 [facility] Influenza Virus 2007-06-01 Completed [facility] Vaccine 00:00:00 [facility] Influenza Virus 2007-06-01 Completed [facility] Vaccine 00:00:00 [facility] Influenza Virus 2007-06-01 Completed [facility] Vaccine 00:00:00 [facility] Influenza Virus 2007-06-01 Completed [facility] Vaccine 00:00:00 [facility] Influenza Virus 2007-06-01 Completed [facility] Vaccine 00:00:00 [facility] Influenza Virus 2007-06-01 Completed [facility] Vaccine 00:00:00 [facility] Influenza Virus 2007-06-01 Completed [facility] Vaccine 00:00:00 [facility] Influenza Virus 2007-06-01 Completed [facility] Vaccine 00:00:00 [facility] Influenza Virus 2007-06-01 Completed [facility] Vaccine 00:00:00 [facility] Influenza Virus 2007-06-01 Completed [facility] Vaccine 00:00:00 [facility] Influenza Virus 2007-06-01 Completed [facility] Vaccine 00:00:00 [facility] Influenza Virus 2007-06-01 Completed [facility] Vaccine 00:00:00 [facility] Influenza Virus 2007-06-01 Completed [facility] Vaccine 00:00:00 [facility] Influenza Virus 2007-06-01 Completed [facility] Vaccine 00:00:00 [facility] Influenza Virus 2007-06-01 Completed [facility] Vaccine 00:00:00 [facility] Influenza Virus 2007-06-01 Completed [facility] Vaccine 00:00:00 [facility] Influenza Virus 2007-06-01 Completed [facility] Vaccine 00:00:00 [facility] Influenza Virus 2007-06-01 Completed [facility] Vaccine 00:00:00 [facility] Influenza Virus 2007-06-01 Completed [facility] Vaccine 00:00:00 [facility] Influenza Virus 2007-06-01 Completed [facility] Vaccine 00:00:00 [facility] Influenza Virus 2007-06-01 Completed [facility] Vaccine 00:00:00 [facility] Influenza Virus 2007-06-01 Completed [facility] Vaccine 00:00:00 [facility] Influenza Virus 2007-06-01 Completed [facility] Vaccine 00:00:00 [facility] Influenza Virus 2007-06-01 Completed [facility] Vaccine 00:00:00 [facility] Influenza Virus 2007-06-01 Completed [facility] Vaccine 00:00:00 [facility] Influenza Virus 2007-06-01 Completed [facility] Vaccine 00:00:00 [facility] Influenza Virus 2007-06-01 Completed [facility] Vaccine 00:00:00 [facility] Influenza Virus 2007-06-01 Completed [facility] Vaccine 00:00:00 [facility] Influenza Virus 2007-06-01 Completed [facility] Vaccine 00:00:00 [facility] Influenza Virus 2007-06-01 Completed [facility] Vaccine 00:00:00 [facility] Influenza Virus 2007-06-01 Completed [facility] Vaccine 00:00:00 [facility] Influenza Virus 2007-06-01 Completed [facility] Vaccine 00:00:00 [facility] Influenza Virus 2007-06-01 Completed [facility] Vaccine 00:00:00 [facility] Influenza Virus 2007-06-01 Completed [facility] Vaccine 00:00:00 [facility] Influenza Virus 2007-06-01 Completed [facility] Vaccine 00:00:00 [facility] Influenza Virus 2007-06-01 Completed [facility] Vaccine 00:00:00 [facility] Influenza Virus 2007-06-01 Completed [facility] Vaccine 00:00:00 [facility] Influenza Virus 2007-06-01 Completed [facility] Vaccine 00:00:00 [facility] Influenza Virus 2007-06-01 Completed [facility] Vaccine 00:00:00 [facility] Influenza Virus 2007-06-01 Completed [facility] Vaccine 00:00:00 [facility] Influenza Virus 2007-06-01 Completed [facility] Vaccine 00:00:00 [facility] Influenza Virus 2007-06-01 Completed [facility] Vaccine 00:00:00 [facility] Influenza Virus 2007-06-01 Completed [facility] Vaccine 00:00:00 [facility] Influenza Virus 2007-06-01 Completed [facility] Vaccine 00:00:00 [facility] Influenza Virus 2007-06-01 Completed [facility] Vaccine 00:00:00 [facility] Influenza Virus 2007-06-01 Completed [facility] Vaccine 00:00:00 [facility] Influenza Virus 2007-06-01 Completed [facility] Vaccine 00:00:00 [facility] Influenza Virus 2007-06-01 Completed [facility] Vaccine 00:00:00 [facility] Influenza Virus 2007-06-01 Completed [facility] Vaccine 00:00:00 [facility] Influenza Virus 2007-06-01 Completed [facility] Vaccine 00:00:00 [facility] Influenza Virus 2007-06-01 Completed [facility] Vaccine 00:00:00 [facility] Influenza Virus 2007-06-01 Completed [facility] Vaccine 00:00:00 [facility] DTAP 2006-05-24 Completed [facility] 00:00:00 [facility] Proquad 2006-05-24 Completed [facility] (MMR/VARICELLA) 00:00:00 [facility] Polio (IPV/OPV) 2006-05-24 Completed [facility] 00:00:00 [facility] DTAP 2006-05-24 Completed [facility] 00:00:00 [facility] Proquad 2006-05-24 Completed [facility] (MMR/VARICELLA) 00:00:00 [facility] Polio (IPV/OPV) 2006-05-24 Completed [facility] 00:00:00 [facility] DTAP 2006-05-24 Completed [facility] 00:00:00 [facility] Proquad 2006-05-24 Completed [facility] (MMR/VARICELLA) 00:00:00 [facility] Polio (IPV/OPV) 2006-05-24 Completed [facility] 00:00:00 [facility] DTAP 2006-05-24 Completed [facility] 00:00:00 [facility] Proquad 2006-05-24 Completed [facility] (MMR/VARICELLA) 00:00:00 [facility] Polio (IPV/OPV) 2006-05-24 Completed [facility] 00:00:00 [facility] DTAP 2006-05-24 Completed [facility] 00:00:00 [facility] Proquad 2006-05-24 Completed [facility] (MMR/VARICELLA) 00:00:00 [facility] Polio (IPV/OPV) 2006-05-24 Completed [facility] 00:00:00 [facility] DTAP 2006-05-24 Completed [facility] 00:00:00 [facility] Proquad 2006-05-24 Completed [facility] (MMR/VARICELLA) 00:00:00 [facility] Polio (IPV/OPV) 2006-05-24 Completed [facility] 00:00:00 [facility] DTAP 2006-05-24 Completed [facility] 00:00:00 [facility] Proquad 2006-05-24 Completed [facility] (MMR/VARICELLA) 00:00:00 [facility] Polio (IPV/OPV) 2006-05-24 Completed [facility] 00:00:00 [facility] DTAP 2006-05-24 Completed [facility] 00:00:00 [facility] Proquad 2006-05-24 Completed [facility] (MMR/VARICELLA) 00:00:00 [facility] Polio (IPV/OPV) 2006-05-24 Completed [facility] 00:00:00 [facility] DTAP 2006-05-24 Completed [facility] 00:00:00 [facility] Proquad 2006-05-24 Completed [facility] (MMR/VARICELLA) 00:00:00 [facility] Polio (IPV/OPV) 2006-05-24 Completed [facility] 00:00:00 [facility] DTAP 2006-05-24 Completed [facility] 00:00:00 [facility] Proquad 2006-05-24 Completed [facility] (MMR/VARICELLA) 00:00:00 [facility] Polio (IPV/OPV) 2006-05-24 Completed [facility] 00:00:00 [facility] DTAP 2006-05-24 Completed [facility] 00:00:00 [facility] Proquad 2006-05-24 Completed [facility] (MMR/VARICELLA) 00:00:00 [facility] Polio (IPV/OPV) 2006-05-24 Completed [facility] 00:00:00 [facility] DTAP 2006-05-24 Completed [facility] 00:00:00 [facility] Proquad 2006-05-24 Completed [facility] (MMR/VARICELLA) 00:00:00 [facility] Polio (IPV/OPV) 2006-05-24 Completed [facility] 00:00:00 [facility] DTAP 2006-05-24 Completed [facility] 00:00:00 [facility] Proquad 2006-05-24 Completed [facility] (MMR/VARICELLA) 00:00:00 [facility] Polio (IPV/OPV) 2006-05-24 Completed [facility] 00:00:00 [facility] DTAP 2006-05-24 Completed [facility] 00:00:00 [facility] Proquad 2006-05-24 Completed [facility] (MMR/VARICELLA) 00:00:00 [facility] Polio (IPV/OPV) 2006-05-24 Completed [facility] 00:00:00 [facility] DTAP 2006-05-24 Completed [facility] 00:00:00 [facility] Proquad 2006-05-24 Completed [facility] (MMR/VARICELLA) 00:00:00 [facility] Polio (IPV/OPV) 2006-05-24 Completed [facility] 00:00:00 [facility] DTAP 2006-05-24 Completed [facility] 00:00:00 [facility] Proquad 2006-05-24 Completed [facility] (MMR/VARICELLA) 00:00:00 [facility] Polio (IPV/OPV) 2006-05-24 Completed [facility] 00:00:00 [facility] DTAP 2006-05-24 Completed [facility] 00:00:00 [facility] Proquad 2006-05-24 Completed [facility] (MMR/VARICELLA) 00:00:00 [facility] Polio (IPV/OPV) 2006-05-24 Completed [facility] 00:00:00 [facility] DTAP 2006-05-24 Completed [facility] 00:00:00 [facility] Proquad 2006-05-24 Completed [facility] (MMR/VARICELLA) 00:00:00 [facility] Polio (IPV/OPV) 2006-05-24 Completed [facility] 00:00:00 [facility] DTAP 2006-05-24 Completed [facility] 00:00:00 [facility] Proquad 2006-05-24 Completed [facility] (MMR/VARICELLA) 00:00:00 [facility] Polio (IPV/OPV) 2006-05-24 Completed [facility] 00:00:00 [facility] DTAP 2006-05-24 Completed [facility] 00:00:00 [facility] Proquad 2006-05-24 Completed [facility] (MMR/VARICELLA) 00:00:00 [facility] Polio (IPV/OPV) 2006-05-24 Completed [facility] 00:00:00 [facility] DTAP 2006-05-24 Completed [facility] 00:00:00 [facility] Proquad 2006-05-24 Completed [facility] (MMR/VARICELLA) 00:00:00 [facility] Polio (IPV/OPV) 2006-05-24 Completed [facility] 00:00:00 [facility] DTAP 2006-05-24 Completed [facility] 00:00:00 [facility] Proquad 2006-05-24 Completed [facility] (MMR/VARICELLA) 00:00:00 [facility] Polio (IPV/OPV) 2006-05-24 Completed [facility] 00:00:00 [facility] DTAP 2006-05-24 Completed [facility] 00:00:00 [facility] Proquad 2006-05-24 Completed [facility] (MMR/VARICELLA) 00:00:00 [facility] Polio (IPV/OPV) 2006-05-24 Completed [facility] 00:00:00 [facility] DTAP 2006-05-24 Completed [facility] 00:00:00 [facility] Proquad 2006-05-24 Completed [facility] (MMR/VARICELLA) 00:00:00 [facility] Polio (IPV/OPV) 2006-05-24 Completed [facility] 00:00:00 [facility] DTAP 2006-05-24 Completed [facility] 00:00:00 [facility] Proquad 2006-05-24 Completed [facility] (MMR/VARICELLA) 00:00:00 [facility] Polio (IPV/OPV) 2006-05-24 Completed [facility] 00:00:00 [facility] DTAP 2006-05-24 Completed [facility] 00:00:00 [facility] Proquad 2006-05-24 Completed [facility] (MMR/VARICELLA) 00:00:00 [facility] Polio (IPV/OPV) 2006-05-24 Completed [facility] 00:00:00 [facility] DTAP 2006-05-24 Completed [facility] 00:00:00 [facility] Proquad 2006-05-24 Completed [facility] (MMR/VARICELLA) 00:00:00 [facility] Polio (IPV/OPV) 2006-05-24 Completed [facility] 00:00:00 [facility] DTAP 2006-05-24 Completed [facility] 00:00:00 [facility] Proquad 2006-05-24 Completed [facility] (MMR/VARICELLA) 00:00:00 [facility] Polio (IPV/OPV) 2006-05-24 Completed [facility] 00:00:00 [facility] DTAP 2006-05-24 Completed [facility] 00:00:00 [facility] Proquad 2006-05-24 Completed [facility] (MMR/VARICELLA) 00:00:00 [facility] Polio (IPV/OPV) 2006-05-24 Completed [facility] 00:00:00 [facility] DTAP 2006-05-24 Completed [facility] 00:00:00 [facility] Proquad 2006-05-24 Completed [facility] (MMR/VARICELLA) 00:00:00 [facility] Polio (IPV/OPV) 2006-05-24 Completed [facility] 00:00:00 [facility] DTAP 2006-05-24 Completed [facility] 00:00:00 [facility] Proquad 2006-05-24 Completed [facility] (MMR/VARICELLA) 00:00:00 [facility] Polio (IPV/OPV) 2006-05-24 Completed [facility] 00:00:00 [facility] DTAP 2006-05-24 Completed [facility] 00:00:00 [facility] Proquad 2006-05-24 Completed [facility] (MMR/VARICELLA) 00:00:00 [facility] Polio (IPV/OPV) 2006-05-24 Completed [facility] 00:00:00 [facility] DTAP 2006-05-24 Completed [facility] 00:00:00 [facility] Proquad 2006-05-24 Completed [facility] (MMR/VARICELLA) 00:00:00 [facility] Polio (IPV/OPV) 2006-05-24 Completed [facility] 00:00:00 [facility] DTAP 2006-05-24 Completed [facility] 00:00:00 [facility] Proquad 2006-05-24 Completed [facility] (MMR/VARICELLA) 00:00:00 [facility] Polio (IPV/OPV) 2006-05-24 Completed [facility] 00:00:00 [facility] DTAP 2006-05-24 Completed [facility] 00:00:00 [facility] Proquad 2006-05-24 Completed [facility] (MMR/VARICELLA) 00:00:00 [facility] Polio (IPV/OPV) 2006-05-24 Completed [facility] 00:00:00 [facility] DTAP 2006-05-24 Completed [facility] 00:00:00 [facility] Proquad 2006-05-24 Completed [facility] (MMR/VARICELLA) 00:00:00 [facility] Polio (IPV/OPV) 2006-05-24 Completed [facility] 00:00:00 [facility] DTAP 2006-05-24 Completed [facility] 00:00:00 [facility] Proquad 2006-05-24 Completed [facility] (MMR/VARICELLA) 00:00:00 [facility] Polio (IPV/OPV) 2006-05-24 Completed [facility] 00:00:00 [facility] DTAP 2006-05-24 Completed [facility] 00:00:00 [facility] Proquad 2006-05-24 Completed [facility] (MMR/VARICELLA) 00:00:00 [facility] Polio (IPV/OPV) 2006-05-24 Completed [facility] 00:00:00 [facility] DTAP 2006-05-24 Completed [facility] 00:00:00 [facility] Proquad 2006-05-24 Completed [facility] (MMR/VARICELLA) 00:00:00 [facility] Polio (IPV/OPV) 2006-05-24 Completed [facility] 00:00:00 [facility] DTAP 2006-05-24 Completed [facility] 00:00:00 [facility] Proquad 2006-05-24 Completed [facility] (MMR/VARICELLA) 00:00:00 [facility] Polio (IPV/OPV) 2006-05-24 Completed [facility] 00:00:00 [facility] DTAP 2006-05-24 Completed [facility] 00:00:00 [facility] Proquad 2006-05-24 Completed [facility] (MMR/VARICELLA) 00:00:00 [facility] Polio (IPV/OPV) 2006-05-24 Completed [facility] 00:00:00 [facility] DTAP 2006-05-24 Completed [facility] 00:00:00 [facility] Proquad 2006-05-24 Completed [facility] (MMR/VARICELLA) 00:00:00 [facility] Polio (IPV/OPV) 2006-05-24 Completed [facility] 00:00:00 [facility] DTAP 2006-05-24 Completed [facility] 00:00:00 [facility] Proquad 2006-05-24 Completed [facility] (MMR/VARICELLA) 00:00:00 [facility] Polio (IPV/OPV) 2006-05-24 Completed [facility] 00:00:00 [facility] DTAP 2006-05-24 Completed [facility] 00:00:00 [facility] Proquad 2006-05-24 Completed [facility] (MMR[facility]VARICELLA) [facility] (IPV/OPV) 2006-05-24 Completed [facility] 00:00:00 [facility] DTAP 2006-05-24 Completed [facility] 00:00:00 [facility] Proquad 2006-05-24 Completed [facility] (MMR/VARICELLA) 00:00:00 [facility] Polio (IPV/OPV) 2006-05-24 Completed [facility] 00:00:00 [facility] DTAP 2006-05-24 Completed [facility] 00:00:00 [facility] Proquad 2006-05-24 Completed [facility] (MMR/VARICELLA) 00:00:00 [facility] Polio (IPV/OPV) 2006-05-24 Completed [facility] 00:00:00 [facility] DTAP 2006-05-24 Completed [facility] 00:00:00 [facility] Proquad 2006-05-24 Completed [facility] (MMR/VARICELLA) 00:00:00 [facility] Polio (IPV/OPV) 2006-05-24 Completed [facility] 00:00:00 [facility] DTAP 2006-05-24 Completed [facility] 00:00:00 [facility] Proquad 2006-05-24 Completed [facility] (MMR/VARICELLA) 00:00:00 [facility] Polio (IPV/OPV) 2006-05-24 Completed [facility] 00:00:00 [facility] DTAP 2006-05-24 Completed [facility] 00:00:00 [facility] Proquad 2006-05-24 Completed [facility] (MMR/VARICELLA) 00:00:00 [facility] Polio (IPV/OPV) 2006-05-24 Completed [facility] 00:00:00 [facility] DTAP 2006-05-24 Completed [facility] 00:00:00 [facility] Proquad 2006-05-24 Completed [facility] (MMR/VARICELLA) 00:00:00 [facility] Polio (IPV/OPV) 2006-05-24 Completed [facility] 00:00:00 [facility] DTAP 2006-05-24 Completed [facility] 00:00:00 [facility] Proquad 2006-05-24 Completed [facility] (MMR/VARICELLA) 00:00:00 [facility] Polio (IPV/OPV) 2006-05-24 Completed [facility] 00:00:00 [facility] DTAP 2006-05-24 Completed [facility] 00:00:00 [facility] Proquad 2006-05-24 Completed [facility] (MMR/VARICELLA) 00:00:00 [facility] Polio (IPV/OPV) 2006-05-24 Completed [facility] 00:00:00 [facility] DTAP 2006-05-24 Completed [facility] 00:00:00 [facility] Proquad 2006-05-24 Completed [facility] (MMR/VARICELLA) 00:00:00 [facility] Polio (IPV/OPV) 2006-05-24 Completed [facility] 00:00:00 [facility] DTAP 2006-05-24 Completed [facility] 00:00:00 [facility] Proquad 2006-05-24 Completed [facility] (MMR/VARICELLA) 00:00:00 [facility] Polio (IPV/OPV) 2006-05-24 Completed [facility] 00:00:00 [facility] DTAP 2006-05-24 Completed [facility] 00:00:00 [facility] Proquad 2006-05-24 Completed [facility] (MMR/VARICELLA) 00:00:00 [facility] Polio (IPV/OPV) 2006-05-24 Completed [facility] 00:00:00 [facility] DTAP 2006-05-24 Completed [facility] 00:00:00 [facility] Proquad 2006-05-24 Completed [facility] (MMR/VARICELLA) 00:00:00 [facility] Polio (IPV/OPV) 2006-05-24 Completed [facility] 00:00:00 [facility] DTAP 2006-05-24 Completed [facility] of 00:00:00 [facility] Proquad 2006-05-24 Completed [facility] of (MMR/VARICELLA) 00:00:00 [facility] Polio (IPV/OPV) 2006-05-24 Completed [facility] 00:00:00 [facility] HEPATITIS A 2005-05-19 Completed [facility] of 00:00:00 [facility] Influenza Virus 2005-05-19 Completed [facility]it y of Vaccine 00:00:00 [facility] HEPATITIS A 2005-05-19 Completed [facility] of 00:00:00 [facility] Influenza Virus 2005-05-19 Completed [facility] of Vaccine 00:00:00 [facility] HEPATITIS A 2005-05-19 Completed [facility] of 00:00:00 [facility] Influenza Virus 2005-05-19 Completed [facility] of Vaccine 00:00:00 [facility] HEPATITIS A 2005-05-19 Completed [facility] of 00:00:00 [facility] Influenza Virus 2005-05-19 Completed [facility] of Vaccine 00:00:00 [facility] HEPATITIS A 2005-05-19 Completed [facility] of 00:00:00 [facility] Influenza Virus 2005-05-19 Completed [facility] of Vaccine 00:00:00 [facility] HEPATITIS A 2005-05-19 Completed [facility] of 00:00:00 [facility] Influenza Virus 2005-05-19 Completed [facility] of Vaccine 00:00:00 [facility] HEPATITIS A 2005-05-19 Completed [facility] of 00:00:00 [facility] Influenza Virus 2005-05-19 Completed [facility] of Vaccine 00:00:00 [facility] HEPATITIS A 2005-05-19 Completed [facility] of 00:00:00 [facility] Influenza Virus 2005-05-19 Completed [facility] of Vaccine 00:00:00 [facility] HEPATITIS A 2005-05-19 Completed [facility] of 00:00:00 [facility] Influenza Virus 2005-05-19 Completed [facility] of Vaccine 00:00:00 [facility] HEPATITIS A 2005-05-19 Completed [facility] of 00:00:00 [facility] Influenza Virus 2005-05-19 Completed [facility] of Vaccine 00:00:00 [facility] HEPATITIS A 2005-05-19 Completed [facility] of 00:00:00 [facility] Influenza Virus 2005-05-19 Completed [facility] of Vaccine 00:00:00 [facility] HEPATITIS A 2005-05-19 Completed [facility] of 00:00:00 [facility] Influenza Virus 2005-05-19 Completed [facility] of Vaccine 00:00:00 [facility] HEPATITIS A 2005-05-19 Completed [facility] of 00:00:00 [facility] Influenza Virus 2005-05-19 Completed [facility] of Vaccine 00:00:00 [facility] HEPATITIS A 2005-05-19 Completed [facility] of 00:00:00 [facility] Influenza Virus 2005-05-19 Completed [facility] of Vaccine 00:00:00 [facility] HEPATITIS A 2005-05-19 Completed [facility] of 00:00:00 [facility] Influenza Virus 2005-05-19 Completed [facility] of Vaccine 00:00:00 [facility] HEPATITIS A 2005-05-19 Completed [facility] of 00:00:00 [facility] Influenza Virus 2005-05-19 Completed [facility] of Vaccine 00:00:00 [facility] HEPATITIS A 2005-05-19 Completed [facility] of 00:00:00 [facility] Influenza Virus 2005-05-19 Completed [facility] of Vaccine 00:00:00 [facility] HEPATITIS A 2005-05-19 Completed [facility] of 00:00:00 [facility] Influenza Virus 2005-05-19 Completed [facility] of Vaccine 00:00:00 [facility] HEPATITIS A 2005-05-19 Completed [facility] of 00:00:00 [facility] Influenza Virus 2005-05-19 Completed [facility] of Vaccine 00:00:00 [facility] HEPATITIS A 2005-05-19 Completed [facility] of 00:00:00 [facility] Influenza Virus 2005-05-19 Completed [facility] of Vaccine 00:00:00 [facility] HEPATITIS A 2005-05-19 Completed [facility] of 00:00:00 [facility] Influenza Virus 2005-05-19 Completed [facility] of Vaccine 00:00:00 [facility] HEPATITIS A 2005-05-19 Completed [facility] of 00:00:00 [facility] Influenza Virus 2005-05-19 Completed [facility] of Vaccine 00:00:00 [facility] HEPATITIS A 2005-05-19 Completed [facility] of 00:00:00 [facility] Influenza Virus 2005-05-19 Completed [facility] of Vaccine 00:00:00 [facility] HEPATITIS A 2005-05-19 Completed [facility] of 00:00:00 [facility] Influenza Virus 2005-05-19 Completed [facility] of Vaccine 00:00:00 [facility] HEPATITIS A 2005-05-19 Completed [facility] of 00:00:00 [facility] Influenza Virus 2005-05-19 Completed [facility] Vaccine 00:00:00 [facility] HEPATITIS A 2005-05-19 Completed [facility] of 00:00:00 [facility] Influenza Virus 2005-05-19 Completed [facility] Vaccine 00:00:00 [facility] HEPATITIS A 2005-05-19 Completed [facility] of 00:00:00 [facility] Influenza Virus 2005-05-19 Completed [facility] Vaccine 00:00:00 [facility] HEPATITIS A 2005-05-19 Completed [facility] of 00:00:00 [facility] Influenza Virus 2005-05-19 Completed [facility] of Vaccine 00:00:00 [facility] HEPATITIS A 2005-05-19 Completed [facility] of 00:00:00 [facility] Influenza Virus 2005-05-19 Completed [facility] of Vaccine 00:00:00 [facility] HEPATITIS A 2005-05-19 Completed [facility] of 00:00:00 [facility] Influenza Virus 2005-05-19 Completed [facility] of Vaccine 00:00:00 [facility] HEPATITIS A 2005-05-19 Completed [facility] of 00:00:00 [facility] Influenza Virus 2005-05-19 Completed [facility] of Vaccine 00:00:00 [facility] HEPATITIS A 2005-05-19 Completed [facility] of 00:00:00 [facility] Influenza Virus 2005-05-19 Completed [facility] of Vaccine 00:00:00 [facility] HEPATITIS A 2005-05-19 Completed [facility] of 00:00:00 [facility] Influenza Virus 2005-05-19 Completed [facility] of Vaccine 00:00:00 [facility] HEPATITIS A 2005-05-19 Completed [facility] of 00:00:00 [facility] Influenza Virus 2005-05-19 Completed [facility] of Vaccine 00:00:00 [facility] HEPATITIS A 2005-05-19 Completed [facility] of 00:00:00 [facility] Influenza Virus 2005-05-19 Completed [facility] of Vaccine 00:00:00 [facility] HEPATITIS A 2005-05-19 Completed [facility] of 00:00:00 [facility] Influenza Virus 2005-05-19 Completed [facility] of Vaccine 00:00:00 [facility] HEPATITIS A 2005-05-19 Completed [facility] of 00:00:00 [facility] Influenza Virus 2005-05-19 Completed [facility] of Vaccine 00:00:00 [facility] HEPATITIS A 2005-05-19 Completed [facility] of 00:00:00 [facility] Influenza Virus 2005-05-19 Completed [facility] Vaccine 00:00:00 [facility] HEPATITIS A 2005-05-19 Completed [facility] 00:00:00 [facility] Influenza Virus 2005-05-19 Completed [facility] of Vaccine 00:00:00 [facility] HEPATITIS A 2005-05-19 Completed [facility] of 00:00:00 [facility] Influenza Virus 2005-05-19 Completed [facility] of Vaccine 00:00:00 [facility] HEPATITIS A 2005-05-19 Completed [facility] of 00:00:00 [facility] Influenza Virus 2005-05-19 Completed [facility] of Vaccine 00:00:00 [facility] HEPATITIS A 2005-05-19 Completed [facility] of 00:00:00 [facility] Influenza Virus 2005-05-19 Completed [facility] of Vaccine 00:00:00 [facility] HEPATITIS A 2005-05-19 Completed [facility] of 00:00:00 [facility] Influenza Virus 2005-05-19 Completed [facility] of Vaccine 00:00:00 [facility] HEPATITIS A 2005-05-19 Completed [facility] of 00:00:00 [facility] Influenza Virus 2005-05-19 Completed [facility] of Vaccine 00:00:00 [facility] HEPATITIS A 2005-05-19 Completed [facility] of 00:00:00 [facility] Influenza Virus 2005-05-19 Completed [facility] Vaccine 00:00:00 [facility] HEPATITIS A 2005-05-19 Completed [facility] of 00:00:00 [facility] Influenza Virus 2005-05-19 Completed [facility] Vaccine 00:00:00 [facility] HEPATITIS A 2005-05-19 Completed [facility] of 00:00:00 [facility] Influenza Virus 2005-05-19 Completed [facility] of Vaccine 00:00:00 [facility] HEPATITIS A 2005-05-19 Completed [facility] of 00:00:00 [facility] Influenza Virus 2005-05-19 Completed [facility] Vaccine 00:00:00 [facility] HEPATITIS A 2005-05-19 Completed [facility] of 00:00:00 [facility] Influenza Virus 2005-05-19 Completed [facility] Vaccine 00:00:00 [facility] HEPATITIS A 2005-05-19 Completed [facility] of 00:00:00 [facility] Influenza Virus 2005-05-19 Completed [facility] Vaccine 00:00:00 [facility] HEPATITIS A 2005-05-19 Completed [facility] 00:00:00 [facility] Influenza Virus 2005-05-19 Completed [facility] Vaccine 00:00:00 [facility] HEPATITIS A 2005-05-19 Completed [facility] of 00:00:00 [facility] Influenza Virus 2005-05-19 Completed [facility] Vaccine 00:00:00 [facility] HEPATITIS A 2005-05-19 Completed [facility] of 00:00:00 [facility] Influenza Virus 2005-05-19 Completed [facility] Vaccine 00:00:00 [facility] HEPATITIS A 2005-05-19 Completed [facility] 00:00:00 [facility] Influenza Virus 2005-05-19 Completed [facility] Vaccine 00:00:00 [facility] HEPATITIS A 2005-05-19 Completed [facility] 00:00:00 [facility] Influenza Virus 2005-05-19 Completed [facility] Vaccine 00:00:00 [facility] HEPATITIS A 2005-05-19 Completed [facility] 00:00:00 [facility] Influenza Virus 2005-05-19 Completed [facility] Vaccine 00:00:00 [facility] HEPATITIS A 2005-05-19 Completed [facility] 00:00:00 [facility] Influenza Virus 2005-05-19 Completed [facility] Vaccine 00:00:00 [facility] HEPATITIS A 2004-05-17 Completed [facility] of 00:00:00 [facility] HEPATITIS A 2004-05-17 Completed [facility] 00:00:00 [facility] HEPATITIS A 2004-05-17 Completed [facility] 00:00:00 [facility] HEPATITIS A 2004-05-17 Completed [facility] 00:00:00 [facility] HEPATITIS A 2004-05-17 Completed [facility] 00:00:00 [facility] HEPATITIS A 2004-05-17 Completed [facility] 00:00:00 [facility] HEPATITIS A 2004-05-17 Completed [facility] 00:00:00 [facility] HEPATITIS A 2004-05-17 Completed [facility] of 00:00:00 [facility] HEPATITIS A 2004-05-17 Completed [facility] of 00:00:00 [facility] HEPATITIS A 2004-05-17 Completed [facility] 00:00:00 [facility] HEPATITIS A 2004-05-17 Completed [facility] 00:00:00 [facility] HEPATITIS A 2004-05-17 Completed [facility] of 00:00:00 [facility] HEPATITIS A 2004-05-17 Completed [facility] of 00:00:00 [facility] HEPATITIS A 2004-05-17 Completed [facility] 00:00:00 [facility] HEPATITIS A 2004-05-17 Completed [facility] of 00:00:00 [facility] HEPATITIS A 2004-05-17 Completed [facility] 00:00:00 [facility] HEPATITIS A 2004-05-17 Completed [facility] 00:00:00 [facility] HEPATITIS A 2004-05-17 Completed [facility] 00:00:00 [facility] HEPATITIS A 2004-05-17 Completed [facility] 00:00:00 [facility] HEPATITIS A 2004-05-17 Completed [facility] 00:00:00 [facility] HEPATITIS A 2004-05-17 Completed [facility] 00:00:00 [facility] HEPATITIS A 2004-05-17 Completed [facility] 00:00:00 [facility] HEPATITIS A 2004-05-17 Completed [facility] 00:00:00 [facility] HEPATITIS A 2004-05-17 Completed [facility] 00:00:00 [facility] HEPATITIS A 2004-05-17 Completed [facility] of 00:00:00 [facility] HEPATITIS A 2004-05-17 Completed [facility] 00:00:00 [facility] HEPATITIS A 2004-05-17 Completed [facility] 00:00:00 [facility] HEPATITIS A 2004-05-17 Completed [facility] 00:00:00 [facility] HEPATITIS A 2004-05-17 Completed [facility] 00:00:00 [facility] HEPATITIS A 2004-05-17 Completed [facility] 00:00:00 [facility] HEPATITIS A 2004-05-17 Completed [facility] 00:00:00 [facility] HEPATITIS A 2004-05-17 Completed [facility] 00:00:00 [facility] HEPATITIS A 2004-05-17 Completed [facility] 00:00:00 [facility] HEPATITIS A 2004-05-17 Completed [facility] 00:00:00 [facility] HEPATITIS A 2004-05-17 Completed [facility] of 00:00:00 [facility] HEPATITIS A 2004-05-17 Completed [facility] 00:00:00 [facility] HEPATITIS A 2004-05-17 Completed [facility] of 00:00:00 [facility] HEPATITIS A 2004-05-17 Completed [facility] 00:00:00 [facility] HEPATITIS A 2004-05-17 Completed [facility] 00:00:00 [facility] HEPATITIS A 2004-05-17 Completed [facility] 00:00:00 [facility] HEPATITIS A 2004-05-17 Completed [facility] 00:00:00 [facility] HEPATITIS A 2004-05-17 Completed [facility] 00:00:00 [facility] HEPATITIS A 2004-05-17 Completed [facility] 00:00:00 [facility] HEPATITIS A 2004-05-17 Completed [facility] 00:00:00 [facility] HEPATITIS A 2004-05-17 Completed [facility] 00:00:00 [facility] HEPATITIS A 2004-05-17 Completed [facility] 00:00:00 [facility] HEPATITIS A 2004-05-17 Completed [facility] 00:00:00 [facility] HEPATITIS A 2004-05-17 Completed [facility] 00:00:00 [facility] HEPATITIS A 2004-05-17 Completed [facility] 00:00:00 [facility] HEPATITIS A 2004-05-17 Completed [facility] 00:00:00 [facility] HEPATITIS A 2004-05-17 Completed [facility] 00:00:00 [facility] HEPATITIS A 2004-05-17 Completed [facility] 00:00:00 [facility] HEPATITIS A 2004-05-17 Completed [facility] 00:00:00 [facility] HEPATITIS A 2004-05-17 Completed [facility] of 00:00:00 [facility] HEPATITIS A 2004-05-17 Completed [facility] 00:00:00 [facility] HEPATITIS A 2004-05-17 Completed [facility] of 00:00:00 [facility] HEPATITIS A 2004-05-17 Completed [facility] 00:00:00 [facility] Polio (IPV/OPV) 2003-08-21 Completed [facility] 00:00:00 [facility] Polio (IPV/OPV) 2003-08-21 Completed [facility] 00:00:00 [facility] Polio (IPV/OPV) 2003-08-21 Completed [facility] 00:00:00 [facility] Polio (IPV/OPV) 2003-08-21 Completed [facility] 00:00:00 [facility] Polio (IPV/OPV) 2003-08-21 Completed [facility] 00:00:00 [facility] Polio (IPV/OPV) 2003-08-21 Completed [facility] 00:00:00 [facility] Polio (IPV/OPV) 2003-08-21 Completed [facility] 00:00:00 [facility] Polio (IPV/OPV) 2003-08-21 Completed [facility] 00:00:00 [facility] Polio (IPV/OPV) 2003-08-21 Completed [facility] 00:00:00 [facility] Polio (IPV/OPV) 2003-08-21 Completed [...] (IPV/OPV) 2003-08-21 Completed [facility] 00:00:00 [facility] Polio (IPV/OPV) 2003-08-21 Completed [facility] 00:00:00 [facility] Polio (IPV/OPV) 2003-08-21 Completed [facility] 00:00:00 [facility] Polio (IPV/OPV) 2003-08-21 Completed [facility] 00:00:00 [facility] Polio (IPV/OPV) 2003-08-21 Completed [facility] 00:00:00 [facility] Polio (IPV/OPV) 2003-08-21 Completed [facility] 00:00:00 [facility] Polio (IPV/OPV) 2003-08-21 Completed [facility] 00:00:00 [facility] Polio (IPV/OPV) 2003-08-21 Completed [facility] 00:00:00 [facility] Polio (IPV/OPV) 2003-08-21 Completed [facility] 00:00:00 [facility] Polio (IPV/OPV) 2003-08-21 Completed [facility] 00:00:00 [facility] HIB 4 Dose Schedule 2003-05-22 Completed Unive rsity of 00:00:00 [facility] MMR 2003-05-22 Completed [facility] 00:00:00 [facility] Pneumococcal 7 2003-05-22 Completed [facility] of Conjugate, PCV7 00:00:00 [facility] (Prevnar7) [facility] Varicella 2003-05-22 Completed [facility] (varivax)(chicken 00:00:00 [place] [facility] pox) [facility] HIB 4 Dose Schedule 2003-05-22 Completed Unive rsity of 00:00:00 [facility] MMR 2003-05-22 Completed [facility] of 00:00:00 [facility] Pneumococcal 7 2003-05-22 Completed [facility] of Conjugate, PCV7 00:00:00 [facility] (Prevnar7) [facility] Varicella 2003-05-22 Completed [facility] (varivax)(chicken 00:00:00 [facility] pox) [facility] HIB 4 Dose Schedule 2003-05-22 Completed Unive rsity of 00:00:00 [facility] MMR 2003-05-22 Completed [facility] 00:00:00 [facility] Pneumococcal 7 2003-05-22 Completed [facility] of Conjugate, PCV7 00:00:00 [place] [facility] (Prevnar7) [facility] Varicella 2003-05-22 Completed [facility] (varivax)(chicken 00:00:00 [place] [facility] pox) [facility] HIB 4 Dose Schedule 2003-05-22 Completed Unive rsity of 00:00:00 [facility] MMR 2003-05-22 Completed [facility] of 00:00:00 [facility] Pneumococcal 7 2003-05-22 Completed [facility] of Conjugate, PCV7 00:00:00 [place] [facility] (Prevnar7) [facility] Varicella 2003-05-22 Completed [facility] (varivax)(chicken 00:00:00 [place] [facility] pox) [facility] HIB 4 Dose Schedule 2003-05-22 Completed Unive rsity of 00:00:00 [facility] MMR 2003-05-22 Completed [facility] 00:00:00 [facility] Pneumococcal 7 2003-05-22 Completed [facility] of Conjugate, PCV7 00:00:00 [place] [facility] (Prevnar7) [facility] Varicella 2003-05-22 Completed [facility] (varivax)(chicken 00:00:00 [place] [facility] pox) [facility] HIB 4 Dose Schedule 2003-05-22 Completed Unive rsity of 00:00:00 [facility] MMR 2003-05-22 Completed [facility] of 00:00:00 [facility] Pneumococcal 7 2003-05-22 Completed [facility] of Conjugate, PCV7 00:00:00 [place] [facility] (Prevnar7) [facility] Varicella 2003-05-22 Completed [facility] (varivax)(chicken 00:00:00 [place] [facility] pox) [facility] HIB 4 Dose Schedule 2003-05-22 Completed Unive rsity of 00:00:00 [facility] MMR 2003-05-22 Completed [facility] 00:00:00 [facility] Pneumococcal 7 2003-05-22 Completed [facility] of Conjugate, PCV7 00:00:00 [place] [facility] (Prevnar7) [facility] Varicella 2003-05-22 Completed [facility] (varivax)(chicken 00:00:00 [facility] pox) [facility] HIB 4 Dose Schedule 2003-05-22 Completed Unive rsity of 00:00:00 [facility] MMR 2003-05-22 Completed [facility] 00:00:00 [facility] Pneumococcal 7 2003-05-22 Completed [facility] of Conjugate, PCV7 00:00:00 [place] [facility] (Prevnar7) [facility] Varicella 2003-05-22 Completed [facility] (varivax)(chicken 00:00:00 [place] [facility] pox) [facility] HIB 4 Dose Schedule 2003-05-22 Completed Unive rsity of 00:00:00 [facility] MMR 2003-05-22 Completed [facility] 00:00:00 [facility] Pneumococcal 7 2003-05-22 Completed [facility] of Conjugate, PCV7 00:00:00 [place] [facility] (Prevnar7) [facility] Varicella 2003-05-22 Completed [facility] (varivax)(chicken 00:00:00 [place] [facility] pox) [facility] HIB 4 Dose Schedule 2003-05-22 Completed Unive rsity of 00:00:00 [facility] MMR 2003-05-22 Completed [facility] 00:00:00 [facility] Pneumococcal 7 2003-05-22 Completed [facility] of Conjugate, PCV7 00:00:00 [facility] (Prevnar7) [facility] Varicella 2003-05-22 Completed [facility] (varivax)(chicken 00:00:00 [place] [facility] pox) [facility] HIB 4 Dose Schedule 2003-05-22 Completed Unive rsity of 00:00:00 [facility] MMR 2003-05-22 Completed [facility] 00:00:00 [facility] Pneumococcal 7 2003-05-22 Completed [facility] of Conjugate, PCV7 00:00:00 [place] [facility] (Prevnar7) [facility] Varicella 2003-05-22 Completed [facility] (varivax)(chicken 00:00:00 [place] [facility] pox) [facility] HIB 4 Dose Schedule 2003-05-22 Completed Unive rsity of 00:00:00 [facility] MMR 2003-05-22 Completed [facility] 00:00:00 [facility] Pneumococcal 7 2003-05-22 Completed [facility] of Conjugate, PCV7 00:00:00 [place] [facility] (Prevnar7) [facility] Varicella 2003-05-22 Completed [facility] (varivax)(chicken 00:00:00 [place] [facility] pox) [facility] HIB 4 Dose Schedule 2003-05-22 Completed Unive rsity of 00:00:00 [facility] MMR 2003-05-22 Completed [facility] 00:00:00 [facility] Pneumococcal 7 2003-05-22 Completed [facility] of Conjugate, PCV7 00:00:00 [place] [facility] (Prevnar7) [facility] Varicella 2003-05-22 Completed [facility] (varivax)(chicken 00:00:00 [place] [facility] pox) [facility] HIB 4 Dose Schedule 2003-05-22 Completed [facility]ive rsity of 00:00:00 [facility] MMR 2003-05-22 Completed [facility] 00:00:00 [facility] Pneumococcal 7 2003-05-22 Completed [facility] of Conjugate, PCV7 00:00:00 [place] [facility] (Prevnar7) [facility] Varicella 2003-05-22 Completed [facility] (varivax)(chicken 00:00:00 [place] [facility] pox) [facility] HIB 4 Dose Schedule 2003-05-22 Completed Unive rsity of 00:00:00 [facility] MMR 2003-05-22 Completed [facility] 00:00:00 [facility] Pneumococcal 7 2003-05-22 Completed [facility] of Conjugate, PCV7 00:00:00 [place] [facility] (Prevnar7) [facility] Varicella 2003-05-22 Completed [facility] (varivax)(chicken 00:00:00 [place] [facility] pox) [facility] HIB 4 Dose Schedule 2003-05-22 Completed [facility] rs[facility] of 00:00:00 [facility] MMR 2003-05-22 Completed [facility] 00:00:00 [facility] Pneumococcal 7 2003-05-22 Completed [facility] of Conjugate, PCV7 00:00:00 [place] [facility] (Prevnar7) [facility] Varicella 2003-05-22 Completed [facility] (varivax)(chicken 00:00:00 [place] [facility] pox) [facility] HIB 4 Dose Schedule 2003-05-22 Completed Unive rsity of 00:00:00 [facility] MMR 2003-05-22 Completed [facility] 00:00:00 [facility] Pneumococcal 7 2003-05-22 Completed University of Conjugate, PCV7 00:00:00 [place] [facility] (Prevnar[facility]) [facility] Varicella 2003-05-22 Completed [facility] of (varivax)(chicken 00:00:00 [place] [facility] pox) [facility] HIB 4 Dose Schedule 2003-05-22 Completed Unive rsity of 00:00:00 [facility] MMR 2003-05-22 Completed [facility] 00:00:00 [facility] Pneumococcal 7 2003-05-22 Completed [facility] Conjugate, PCV7 00:00:00 [facility] (Prevnar7) [facility] Varicella 2003-05-22 Completed [facility] (varivax)(chicken 00:00:00 [place] [facility] pox) [facility] HIB 4 Dose Schedule 2003-05-22 Completed [facility]ive [facility]ity of 00:00:00 [facility] MMR 2003-05-22 Completed [facility] 00:00:00 [facility] Pneumococcal 7 2003-05-22 Completed [facility] Conjugate, PCV7 00:00:00 [facility] (Prevnar7) [facility] Varicella 2003-05-22 Completed [facility] (varivax)(chicken 00:00:00 [place] [facility] pox) [facility] HIB 4 Dose Schedule 2003-05-22 Completed [facility]ive [facility]ity of 00:00:00 [facility] MMR 2003-05-22 Completed [facility] 00:00:00 [facility] Pneumococcal 7 2003-05-22 Completed [facility] of Conjugate, PCV7 00:00:00 [facility] (Prevnar7) [facility] Varicella 2003-05-22 Completed [facility] of (varivax)(chicken 00:00:00 [facility] edical pox) Branch HIB 4 Dose Schedule 2003-05-22 Completed Unive rsity of 00:00:00 [facility] MMR 2003-05-22 Completed [facility] of 00:00:00 [facility] Pneumococcal 7 2003-05-22 Completed [facility] of Conjugate, PCV7 00:00:00 [place] [facility] (Prevnar7) [facility] Varicella 2003-05-22 Completed [facility] of (varivax)(chicken 00:00:00 [facility] edical pox) Branch HIB 4 Dose Schedule 2003-05-22 Completed [facility]ive rsity of 00:00:00 [facility] MMR 2003-05-22 Completed [facility] 00:00:00 [facility] Pneumococcal 7 2003-05-22 Completed [facility] Conjugate, PCV7 00:00:00 [place] [facility] (Prevnar7) [facility] Varicella 2003-05-22 Completed [facility] of (varivax)(chicken 00:00:00 [facility] edical pox) Branch HIB 4 Dose Schedule 2003-05-22 Completed [facility]ive rsity of 00:00:00 [facility] MMR 2003-05-22 Completed [facility] 00:00:00 [facility] Pneumococcal 7 2003-05-22 Completed [facility] Conjugate, PCV7 00:00:00 [facility] (Prevnar7) [facility] Varicella 2003-05-22 Completed [facility] (varivax)(chicken 00:00:00 [place] [facility] pox) [facility] HIB 4 Dose Schedule 2003-05-22 Completed [facility]ive rsity of 00:00:00 [facility] MMR 2003-05-22 Completed [facility] 00:00:00 [facility] Pneumococcal 7 2003-05-22 Completed [facility] Conjugate, PCV7 00:00:00 [place] [facility] (Prevnar7) [facility] Varicella 2003-05-22 Completed [facility] (varivax)(chicken 00:00:00 [place] [facility] pox) [facility] HIB 4 Dose Schedule 2003-05-22 Completed [facility]ive rsity of 00:00:00 [facility] MMR 2003-05-22 Completed [facility] of 00:00:00 [facility] Pneumococcal 7 2003-05-22 Completed [facility] Conjugate, PCV7 00:00:00 [place] [facility] (Prevnar7) [facility] Varicella 2003-05-22 Completed [facility] (varivax)(chicken 00:00:00 [place] [facility] pox) [facility] HIB 4 Dose Schedule 2003-05-22 Completed [facility]ive rsity of 00:00:00 [facility] MMR 2003-05-22 Completed [facility] 00:00:00 [facility] Pneumococcal 7 2003-05-22 Completed [facility] Conjugate, PCV7 00:00:00 [facility] (Prevnar7) [facility] Varicella 2003-05-22 Completed [facility] (varivax)(chicken 00:00:00 [place] [facility] pox) [facility] HIB 4 Dose Schedule 2003-05-22 Completed [facility]ive rsity of 00:00:00 [facility] MMR 2003-05-22 Completed [facility] 00:00:00 [facility] Pneumococcal 7 2003-05-22 Completed [facility] Conjugate, PCV7 00:00:00 [place] [facility] (Prevnar7) [facility] Varicella 2003-05-22 Completed [facility] (varivax)(chicken 00:00:00 [place] [facility] pox) [facility] HIB 4 Dose Schedule 2003-05-22 Completed [facility]ive [facility] of 00:00:00 [facility] MMR 2003-05-22 Completed [facility] 00:00:00 [facility] Pneumococcal 7 2003-05-22 Completed [facility] of Conjugate, PCV7 00:00:00 [place] [facility] (Prevnar7) [facility] Varicella 2003-05-22 Completed [facility] (varivax)(chicken 00:00:00 [place] [facility] pox) [facility] HIB 4 Dose Schedule 2003-05-22 Completed [facility]ive rsity of 00:00:00 [facility] MMR 2003-05-22 Completed [facility] 00:00:00 [facility] Pneumococcal 7 2003-05-22 Completed [facility] Conjugate, PCV7 00:00:00 [place] [facility] (Prevnar7) [facility] Varicella 2003-05-22 Completed [facility] of (varivax)(chicken 00:00:00 [facility] edical pox) Branch HIB 4 Dose Schedule 2003-05-22 Completed [facility]ive rsity of 00:00:00 [facility] MMR 2003-05-22 Completed [facility] of 00:00:00 [facility] Pneumococcal 7 2003-05-22 Completed [facility] Conjugate, PCV7 00:00:00 [place] [facility] (Prevnar7) [facility] Varicella 2003-05-22 Completed [facility] of (varivax)(chicken 00:00:00 [facility] edical pox) Branch HIB 4 Dose Schedule 2003-05-22 Completed [facility]ive rsity of 00:00:00 [facility] MMR 2003-05-22 Completed [facility] of 00:00:00 [facility] Pneumococcal 7 2003-05-22 Completed [facility] Conjugate, PCV7 00:00:00 [place] [facility] (Prevnar7) [facility] Varicella 2003-05-22 Completed [facility] of (varivax)(chicken 00:00:00 [facility] edical pox) Branch HIB 4 Dose Schedule 2003-05-22 Completed [facility]ive rsity of 00:00:00 [facility] MMR 2003-05-22 Completed [facility] 00:00:00 [facility] Pneumococcal 7 2003-05-22 Completed [facility] Conjugate, PCV7 00:00:00 [place] [facility] (Prevnar7) [facility] Varicella 2003-05-22 Completed [facility] of (varivax)(chicken 00:00:00 [facility] edical pox) Branch HIB 4 Dose Schedule 2003-05-22 Completed [facility]ive rsity of 00:00:00 [facility] MMR 2003-05-22 Completed [facility] 00:00:00 [facility] Pneumococcal 7 2003-05-22 Completed [facility] Conjugate, PCV7 00:00:00 [place] [facility] (Prevnar7) [facility] Varicella 2003-05-22 Completed [facility] of (varivax)(chicken 00:00:00 [facility] edical pox) Branch HIB 4 Dose Schedule 2003-05-22 Completed [facility]ive rsity of 00:00:00 [facility] MMR 2003-05-22 Completed [facility] 00:00:00 [facility] Pneumococcal 7 2003-05-22 Completed [facility] Conjugate, PCV7 00:00:00 [place] [facility] (Prevnar7) [facility] Varicella 2003-05-22 Completed [facility] (varivax)(chicken 00:00:00 [place] [facility] pox) [facility] HIB 4 Dose Schedule 2003-05-22 Completed [facility]ive rsity of 00:00:00 [facility] MMR 2003-05-22 Completed [facility] of 00:00:00 [facility] Pneumococcal 7 2003-05-22 Completed [facility] Conjugate, PCV7 00:00:00 [place] [facility] (Prevnar7) [facility] Varicella 2003-05-22 Completed [facility] (varivax)(chicken 00:00:00 [place] [facility] pox) [facility] HIB 4 Dose Schedule 2003-05-22 Completed [facility]ive rsity of 00:00:00 [facility] MMR 2003-05-22 Completed [facility] 00:00:00 [facility] Pneumococcal 7 2003-05-22 Completed [facility] Conjugate, PCV7 00:00:00 [place] [facility] (Prevnar7) [facility] Varicella 2003-05-22 Completed [facility] (varivax)(chicken 00:00:00 [place] [facility] pox) [facility] HIB 4 Dose Schedule 2003-05-22 Completed [facility]ive rsity of 00:00:00 [facility] MMR 2003-05-22 Completed [facility] 00:00:00 [facility] Pneumococcal 7 2003-05-22 Completed [facility] Conjugate, PCV7 00:00:00 [place] [facility] (Prevnar7) [facility] Varicella 2003-05-22 Completed [facility] (varivax)(chicken 00:00:00 [place] [facility] pox) [facility] HIB 4 Dose Schedule 2003-05-22 Completed [facility]ive rsity of 00:00:00 [facility] MMR 2003-05-22 Completed [facility] 00:00:00 [facility] Pneumococcal 7 2003-05-22 Completed [facility] Conjugate, PCV7 00:00:00 [place] [facility] (Prevnar7) [facility] Varicella 2003-05-22 Completed [facility] of (varivax)(chicken 00:00:00 [facility] edical pox) Branch HIB 4 Dose Schedule 2003-05-22 Completed [facility]ive rsity of 00:00:00 [facility] MMR 2003-05-22 Completed [facility] 00:00:00 [facility] Pneumococcal 7 2003-05-22 Completed [facility] Conjugate, PCV7 00:00:00 [place] [facility] (Prevnar7) [facility] Varicella 2003-05-22 Completed [facility] (varivax)(chicken 00:00:00 [place] [facility] pox) [facility] DTAP 2003-01-01 Completed [facility] 00:00:00 [facility] HIB 4 Dose Schedule 2003-01-01 Completed [facility]ive [facility] of 00:00:00 [facility] Hep B, Adol or Pedi 2003-01-01 Completed [facility]ive rsity of Dosage 00:00:00 [facility] Pneumococcal 7 2003-01-01 Completed [facility] of Conjugate, PCV7 00:00:00 [place] [facility] (Prevnar7) [facility] DTAP 2003-01-01 Completed [facility] 00:00:00 [facility] HIB 4 Dose Schedule 2003-01-01 Completed [facility]ive [facility] of 00:00:00 [facility] Hep B, Adol or Pedi 2003-01-01 Completed [facility]ive [facility] of Dosage 00:00:00 [facility] Pneumococcal 7 2003-01-01 Completed [facility] Conjugate, PCV7 00:00:00 [place] [facility] (Prevnar7) [facility] DTAP 2003-01-01 Completed [facility] 00:00:00 [facility] HIB 4 Dose Schedule 2003-01-01 Completed [facility]ive [facility] of 00:00:00 [facility] Hep B, Adol or Pedi 2003-01-01 Completed [facility]ive [facility]ity of Dosage 00:00:00 [facility] Pneumococcal 7 2003-01-01 Completed [facility] Conjugate, PCV7 00:00:00 [place] [facility] (Prevnar7) [facility] DTAP 2003-01-01 Completed [facility] 00:00:00 [facility] HIB 4 Dose Schedule 2003-01-01 Completed [facility] of 00:00:00 [facility] Hep B, Adol or Pedi 2003-01-01 Completed [facility]ive [facility] of Dosage 00:00:00 [facility] Pneumococcal 7 2003-01-01 Completed [facility] Conjugate, PCV7 00:00:00 [place] [facility] (Prevnar7) [facility] DTAP 2003-01-01 Completed [facility] 00:00:00 [facility] HIB 4 Dose Schedule 2003-01-01 Completed [facility]ive [facility] of 00:00:00 [facility] Hep B, Adol or Pedi 2003-01-01 Completed [facility]ive [facility] of Dosage 00:00:00 [facility] Pneumococcal 7 2003-01-01 Completed [facility] Conjugate, PCV7 00:00:00 [place] [facility] (Prevnar7) [facility] DTAP 2003-01-01 Completed [facility] 00:00:00 [facility] HIB 4 Dose Schedule 2003-01-01 Completed [facility]ive [facility] of 00:00:00 [facility] Hep B, Adol or Pedi 2003-01-01 Completed [facility]ive [facility] of Dosage 00:00:00 [facility] Pneumococcal 7 2003-01-01 Completed [facility] Conjugate, PCV7 00:00:00 [place] [facility] (Prevnar7) [facility] DTAP 2003-01-01 Completed [facility] 00:00:00 [facility] HIB 4 Dose Schedule 2003-01-01 Completed [facility] of 00:00:00 [facility] Hep B, Adol or Pedi 2003-01-01 Completed [facility] of Dosage 00:00:00 [facility] Pneumococcal 7 2003-01-01 Completed [facility] Conjugate, PCV7 00:00:00 [place] [facility] (Prevnar7) [facility] DTAP 2003-01-01 Completed [facility] 00:00:00 [facility] HIB 4 Dose Schedule 2003-01-01 Completed [facility]ive rs[facility] of 00:00:00 [facility] Hep B, Adol or Pedi 2003-01-01 Completed [facility] of Dosage 00:00:00 [facility] Pneumococcal 7 2003-01-01 Completed [facility] Conjugate, PCV7 00:00:00 [place] [facility] (Prevnar7) [facility] DTAP 2003-01-01 Completed [facility] 00:00:00 [facility] HIB 4 Dose Schedule 2003-01-01 Completed [facility]ive [facility] of 00:00:00 [facility] Hep B, Adol or Pedi 2003-01-01 Completed [facility]ive [facility] of Dosage 00:00:00 [facility] Pneumococcal 7 2003-01-01 Completed [facility] Conjugate, PCV7 00:00:00 [place] [facility] (Prevnar7) [facility] DTAP 2003-01-01 Completed [facility] 00:00:00 [facility] HIB 4 Dose Schedule 2003-01-01 Completed [facility]ive [facility] of 00:00:00 [facility] Hep B, Adol or Pedi 2003-01-01 Completed [facility]ive [facility] of Dosage 00:00:00 [facility] Pneumococcal 7 2003-01-01 Completed [facility] Conjugate, PCV7 00:00:00 [place] [facility] (Prevnar7) [facility] DTAP 2003-01-01 Completed [facility] 00:00:00 [facility] HIB 4 Dose Schedule 2003-01-01 Completed [facility]ive [facility]ity of 00:00:00 [facility] Hep B, Adol or Pedi 2003-01-01 Completed [facility] of Dosage 00:00:00 [facility] Pneumococcal 7 2003-01-01 Completed [facility] Conjugate, PCV7 00:00:00 [place] [facility] (Prevnar7) [facility] DTAP 2003-01-01 Completed [facility] 00:00:00 [facility] HIB 4 Dose Schedule 2003-01-01 Completed [facility]ive [facility] of 00:00:00 [facility] Hep B, Adol or Pedi 2003-01-01 Completed [facility]ive [facility] of Dosage 00:00:00 [facility] Pneumococcal 7 2003-01-01 Completed [facility] Conjugate, PCV7 00:00:00 [place] [facility] (Prevnar7) [facility] DTAP 2003-01-01 Completed [facility] 00:00:00 [facility] HIB 4 Dose Schedule 2003-01-01 Completed [facility]ive rs[facility] of 00:00:00 [facility] Hep B, Adol or Pedi 2003-01-01 Completed [facility]ive [facility] of Dosage 00:00:00 [facility] Pneumococcal 7 2003-01-01 Completed [facility] Conjugate, PCV7 00:00:00 [place] [facility] (Prevnar7) [facility] DTAP 2003-01-01 Completed [facility] 00:00:00 [facility] HIB 4 Dose Schedule 2003-01-01 Completed [facility] of 00:00:00 [facility] Hep B, Adol or Pedi 2003-01-01 Completed [facility] of Dosage 00:00:00 [facility] Pneumococcal 7 2003-01-01 Completed [facility] Conjugate, PCV7 00:00:00 [place] [facility] (Prevnar7) [facility] DTAP 2003-01-01 Completed [facility] 00:00:00 [facility] HIB 4 Dose Schedule 2003-01-01 Completed [facility]ive rs[facility] of 00:00:00 [facility] Hep B, Adol or Pedi 2003-01-01 Completed [facility] of Dosage 00:00:00 [facility] Pneumococcal 7 2003-01-01 Completed [facility] Conjugate, PCV7 00:00:00 [place] [facility] (Prevnar7) [facility] DTAP 2003-01-01 Completed [facility] 00:00:00 [facility] HIB 4 Dose Schedule 2003-01-01 Completed [facility] of 00:00:00 [facility] Hep B, Adol or Pedi 2003-01-01 Completed [facility] of Dosage 00:00:00 [facility] Pneumococcal 7 2003-01-01 Completed [facility] Conjugate, PCV7 00:00:00 [place] [facility] (Prevnar7) [facility] DTAP 2003-01-01 Completed [facility] 00:00:00 [facility] HIB 4 Dose Schedule 2003-01-01 Completed [facility] of 00:00:00 [facility] Hep B, Adol or Pedi 2003-01-01 Completed [facility] of Dosage 00:00:00 [facility] Pneumococcal 7 2003-01-01 Completed [facility] Conjugate, PCV7 00:00:00 [place] [facility] (Prevnar7) [facility] DTAP 2003-01-01 Completed [facility] 00:00:00 [facility] HIB 4 Dose Schedule 2003-01-01 Completed [facility] of 00:00:00 [facility] Hep B, Adol or Pedi 2003-01-01 Completed [facility] of Dosage 00:00:00 [facility] Pneumococcal 7 2003-01-01 Completed [facility] Conjugate, PCV7 00:00:00 [place] [facility] (Prevnar7) [facility] DTAP 2003-01-01 Completed [facility] 00:00:00 [facility] HIB 4 Dose Schedule 2003-01-01 Completed [facility] of 00:00:00 [facility] Hep B, Adol or Pedi 2003-01-01 Completed [facility]ive [facility] of Dosage 00:00:00 [facility] Pneumococcal 7 2003-01-01 Completed [facility] Conjugate, PCV7 00:00:00 [place] [facility] (Prevnar7) [facility] DTAP 2003-01-01 Completed [facility] 00:00:00 [facility] HIB 4 Dose Schedule 2003-01-01 Completed [facility]ive rs[facility] of 00:00:00 [facility] Hep B, Adol or Pedi 2003-01-01 Completed [facility] of Dosage 00:00:00 [facility] Pneumococcal 7 2003-01-01 Completed [facility] Conjugate, PCV7 00:00:00 [place] [facility] (Prevnar7) [facility] DTAP 2003-01-01 Completed [facility] 00:00:00 [facility] HIB 4 Dose Schedule 2003-01-01 Completed [facility] of 00:00:00 [facility] Hep B, Adol or Pedi 2003-01-01 Completed [facility] of Dosage 00:00:00 [facility] Pneumococcal 7 2003-01-01 Completed [facility] Conjugate, PCV7 00:00:00 [place] [facility] (Prevnar7) [facility] DTAP 2003-01-01 Completed [facility] 00:00:00 [facility] HIB 4 Dose Schedule 2003-01-01 Completed [facility] of 00:00:00 [facility] Hep B, Adol or Pedi 2003-01-01 Completed [facility] of Dosage 00:00:00 [facility] Pneumococcal 7 2003-01-01 Completed [facility] Conjugate, PCV7 00:00:00 [place] [facility] (Prevnar7) [facility] DTAP 2003-01-01 Completed [facility] 00:00:00 [facility] HIB 4 Dose Schedule 2003-01-01 Completed [facility] of 00:00:00 [facility] Hep B, Adol or Pedi 2003-01-01 Completed [facility] of Dosage 00:00:00 [facility] Pneumococcal 7 2003-01-01 Completed [facility] Conjugate, PCV7 00:00:00 [place] [facility] (Prevnar7) [facility] DTAP 2003-01-01 Completed [facility] 00:00:00 [facility] HIB 4 Dose Schedule 2003-01-01 Completed [facility] of 00:00:00 [facility] Hep B, Adol or Pedi 2003-01-01 Completed [facility] of Dosage 00:00:00 [facility] Pneumococcal 7 2003-01-01 Completed [facility] Conjugate, PCV7 00:00:00 [place] [facility] (Prevnar7) [facility] DTAP 2003-01-01 Completed [facility] 00:00:00 [facility] HIB 4 Dose Schedule 2003-01-01 Completed [facility] of 00:00:00 [facility] Hep B, Adol or Pedi 2003-01-01 Completed [facility] of Dosage 00:00:00 [facility] Pneumococcal 7 2003-01-01 Completed [facility] Conjugate, PCV7 00:00:00 [place] [facility] (Prevnar7) [facility] DTAP 2003-01-01 Completed [facility] 00:00:00 [facility] HIB 4 Dose Schedule 2003-01-01 Completed [facility] of 00:00:00 [facility] Hep B, Adol or Pedi 2003-01-01 Completed [facility] of Dosage 00:00:00 [facility] Pneumococcal 7 2003-01-01 Completed [facility] Conjugate, PCV7 00:00:00 [place] [facility] (Prevnar7) [facility] DTAP 2003-01-01 Completed [facility] 00:00:00 [facility] HIB 4 Dose Schedule 2003-01-01 Completed [facility] of 00:00:00 [facility] Hep B, Adol or Pedi 2003-01-01 Completed [facility] of Dosage 00:00:00 [facility] Pneumococcal 7 2003-01-01 Completed [facility] of Conjugate, PCV7 00:00:00 [place] [facility] (Prevnar7) [facility] DTAP 2003-01-01 Completed [facility] 00:00:00 [facility] HIB 4 Dose Schedule 2003-01-01 Completed [facility] of 00:00:00 [facility] Hep B, Adol or Pedi 2003-01-01 Completed [facility] of Dosage 00:00:00 [facility] Pneumococcal 7 2003-01-01 Completed [facility] of Conjugate, PCV7 00:00:00 [place] [facility] (Prevnar7) [facility] DTAP 2003-01-01 Completed [facility] 00:00:00 [facility] HIB 4 Dose Schedule 2003-01-01 Completed [facility] of 00:00:00 [facility] Hep B, Adol or Pedi 2003-01-01 Completed [facility] of Dosage 00:00:00 [facility] Pneumococcal 7 2003-01-01 Completed [facility] Conjugate, PCV7 00:00:00 [place] [facility] (Prevnar7) [facility] DTAP 2003-01-01 Completed [facility] 00:00:00 [facility] HIB 4 Dose Schedule 2003-01-01 Completed [facility] of 00:00:00 [facility] Hep B, Adol or Pedi 2003-01-01 Completed [facility] of Dosage 00:00:00 [facility] Pneumococcal 7 2003-01-01 Completed [facility] Conjugate, PCV7 00:00:00 [place] [facility] (Prevnar7) [facility] DTAP 2003-01-01 Completed [facility] 00:00:00 [facility] HIB 4 Dose Schedule 2003-01-01 Completed [facility] of 00:00:00 [facility] Hep B, Adol or Pedi 2003-01-01 Completed [facility] of Dosage 00:00:00 [facility] Pneumococcal 7 2003-01-01 Completed [facility] Conjugate, PCV7 00:00:00 [place] [facility] (Prevnar7) [facility] DTAP 2003-01-01 Completed [facility] 00:00:00 [facility] HIB 4 Dose Schedule 2003-01-01 Completed [facility] of 00:00:00 [facility] Hep B, Adol or Pedi 2003-01-01 Completed [facility] of Dosage 00:00:00 [facility] Pneumococcal 7 2003-01-01 Completed [facility] Conjugate, PCV7 00:00:00 [place] [facility] (Prevnar7) [facility] DTAP 2003-01-01 Completed [facility] 00:00:00 [facility] HIB 4 Dose Schedule 2003-01-01 Completed [facility] of 00:00:00 [facility] Hep B, Adol or Pedi 2003-01-01 Completed [facility] of Dosage 00:00:00 [facility] Pneumococcal 7 2003-01-01 Completed [facility] Conjugate, PCV7 00:00:00 [place] [facility] (Prevnar7) [facility] DTAP 2003-01-01 Completed [facility] 00:00:00 [facility] HIB 4 Dose Schedule 2003-01-01 Completed [facility] of 00:00:00 [facility] Hep B, Adol or Pedi 2003-01-01 Completed [facility] of Dosage 00:00:00 [facility] Pneumococcal 7 2003-01-01 Completed [facility] Conjugate, PCV7 00:00:00 [place] [facility] (Prevnar7) [facility] DTAP 2003-01-01 Completed [facility] 00:00:00 [facility] HIB 4 Dose Schedule 2003-01-01 Completed [facility] of 00:00:00 [facility] Hep B, Adol or Pedi 2003-01-01 Completed [facility] of Dosage 00:00:00 [facility] Pneumococcal 7 2003-01-01 Completed [facility] Conjugate, PCV7 00:00:00 [place] [facility] (Prevnar7) [facility] DTAP 2003-01-01 Completed [facility] 00:00:00 [facility] HIB 4 Dose Schedule 2003-01-01 Completed [facility] of 00:00:00 [facility] Hep B, Adol or Pedi 2003-01-01 Completed [facility] of Dosage 00:00:00 [facility] Pneumococcal 7 2003-01-01 Completed [facility] Conjugate, PCV7 00:00:00 [place] [facility] (Prevnar7) [facility] DTAP 2003-01-01 Completed [facility] 00:00:00 [facility] HIB 4 Dose Schedule 2003-01-01 Completed [facility] of 00:00:00 [facility] Hep B, Adol or Pedi 2003-01-01 Completed [facility] of Dosage 00:00:00 [facility] Pneumococcal 7 2003-01-01 Completed [facility] Conjugate, PCV7 00:00:00 [place] [facility] (Prevnar7) [facility] DTAP 2003-01-01 Completed [facility] 00:00:00 [facility] HIB 4 Dose Schedule 2003-01-01 Completed [facility] of 00:00:00 [facility] Hep B, Adol or Pedi 2003-01-01 Completed [facility] of Dosage 00:00:00 [facility] Pneumococcal 7 2003-01-01 Completed [facility] Conjugate, PCV7 00:00:00 [place] [facility] (Prevnar7) [facility] DTAP 2003-01-01 Completed [facility] 00:00:00 [facility] HIB 4 Dose Schedule 2003-01-01 Completed [facility] of 00:00:00 [facility] Hep B, Adol or Pedi 2003-01-01 Completed [facility] of Dosage 00:00:00 [facility] Pneumococcal 7 2003-01-01 Completed [facility] of Conjugate, PCV7 00:00:00 [facility] DTAP 2002 Completed [facility] 00:00:00 [facility] HIB 4 Dose Schedule 2002 Completed [facility] 00:00:00 [facility] Pneumococcal 7 2002 Completed [facility] Conjugate, PCV7 00:00:00 [facility] ([facility] Polio (IPV/OPV) 2002 Completed [facility] 00:00:00 [facility] DTAP 2002 Completed [facility] 00:00:00 [facility] HIB 4 Dose Schedule 2002 Completed [facility] 00:00:00 [facility] Pneumococcal 7 2002 Completed [facility] Conjugate, PCV7 00:00:00 [facility] ([facility] Polio (IPV/OPV) 2002 Completed [facility] 00:00:00 [facility] DTAP 2002 Completed [facility] 00:00:00 [facility] HIB 4 Dose Schedule 2002 Completed [facility] 00:00:00 [facility] Pneumococcal 7 2002 Completed [facility] Conjugate, PCV7 00:00:00 [facility] ([facility] Polio (IPV/OPV) 2002 Completed [facility] 00:00:00 [facility] DTAP 2002 Completed [facility] 00:00:00 [facility] HIB 4 Dose Schedule 2002 Completed [facility] 00:00:00 [facility] Pneumococcal 7 2002 Completed [facility] Conjugate, PCV7 00:00:00 [facility] Polio (IPV/OPV) 2002 Completed [facility] 00:00:00 [facility] DTAP 2002 Completed [facility] 00:00:00 [facility] HIB 4 Dose Schedule 2002 Completed [facility] 00:00:00 [facility] Pneumococcal 7 2002 Completed [facility] Conjugate, PCV7 00:00:00 [facility] Polio (IPV/OPV) 2002 Completed [facility] 00:00:00 [facility] DTAP 2002 Completed [facility] 00:00:00 [facility] HIB 4 Dose Schedule 2002 Completed [facility] 00:00:00 [facility] Pneumococcal 7 2002 Completed [facility] Conjugate, PCV7 00:00:00 [facility] ([facility] Polio (IPV/OPV) 2002 Completed [facility] 00:00:00 [facility] DTAP 2002 Completed [facility] 00:00:00 [facility] HIB 4 Dose Schedule 2002 Completed [facility] 00:00:00 [facility] Pneumococcal 7 2002 Completed [facility] Conjugate, PCV7 00:00:00 [facility] Polio (IPV/OPV) 2002 Completed [facility] 00:00:00 [facility] DTAP 2002 Completed [facility] 00:00:00 [facility] HIB 4 Dose Schedule 2002 Completed [facility] 00:00:00 [facility] Pneumococcal 7 2002 Completed [facility] Conjugate, PCV7 00:00:00 [facility] Polio (IPV/OPV) 2002 Completed [facility] 00:00:00 [facility] DTAP 2002 Completed [facility] 00:00:00 [facility] HIB 4 Dose Schedule 2002 Completed [facility] 00:00:00 [facility] Pneumococcal 7 2002 Completed [facility] Conjugate, PCV7 00:00:00 [facility] Polio (IPV/OPV) 2002 Completed [facility] 00:00:00 [facility] DTAP 2002 Completed [facility] 00:00:00 [facility] HIB 4 Dose Schedule 2002 Completed [facility] 00:00:00 [facility] Pneumococcal 7 2002 Completed [facility] Conjugate, PCV7 00:00:00 [facility] Polio (IPV/OPV) 2002 Completed [facility] 00:00:00 [facility] DTAP 2002 Completed [facility] 00:00:00 [facility] HIB 4 Dose Schedule 2002 Completed [facility] 00:00:00 [facility] Pneumococcal 7 2002 Completed [facility] Conjugate, PCV7 00:00:00 [facility] Polio (IPV/OPV) 2002 Completed [facility] 00:00:00 [facility] DTAP 2002 Completed [facility] 00:00:00 [facility] HIB 4 Dose Schedule 2002 Completed [facility] 00:00:00 [facility] Pneumococcal 7 2002 Completed [facility] Conjugate, PCV7 00:00:00 [facility]ar[facility] Polio (IPV/OPV) 2002 Completed [facility] 00:00:00 [facility] DTAP 2002 Completed [facility] 00:00:00 [facility] HIB 4 Dose Schedule 2002 Completed [facility] 00:00:00 [facility] Pneumococcal 7 2002 Completed [facility] Conjugate, PCV7 00:00:00 [facility]Prevnar[facility] Polio (IPV/OPV) 2002 Completed [facility] 00:00:00 [facility] DTAP 2002 Completed [facility] 00:00:00 [facility] HIB 4 Dose Schedule 2002 Completed [facility] 00:00:00 [facility] Pneumococcal 7 2002 Completed [facility] Conjugate, PCV7 00:00:00 [facility]ar[facility] Polio (IPV/OPV) 2002 Completed [facility] 00:00:00 [facility] DTAP 2002 Completed [facility] 00:00:00 [facility] HIB 4 Dose Schedule 2002 Completed [facility] 00:00:00 [facility] Pneumococcal 7 2002 Completed [facility] Conjugate, PCV7 00:00:00 [facility]ar[facility] Polio (IPV/OPV) 2002 Completed [facility] 00:00:00 [facility] DTAP 2002 Completed [facility] 00:00:00 [facility] HIB 4 Dose Schedule 2002 Completed [facility] 00:00:00 [facility] Pneumococcal 7 2002 Completed [facility] Conjugate, PCV7 00:00:00 [facility]ar[facility] Polio (IPV/OPV) 2002 Completed [facility] 00:00:00 [facility] DTAP 2002 Completed [facility] 00:00:00 [facility] HIB 4 Dose Schedule 2002 Completed [facility] 00:00:00 [facility] Pneumococcal 7 2002 Completed [facility] Conjugate, PCV7 00:00:00 [facility]ar[facility] Polio (IPV/OPV) 2002 Completed [facility] 00:00:00 [facility] DTAP 2002 Completed [facility] 00:00:00 [facility] HIB 4 Dose Schedule 2002 Completed [facility] 00:00:00 [facility] Pneumococcal 7 2002 Completed [facility] Conjugate, PCV7 00:00:00 [facility]ar[facility] Polio (IPV/OPV) 2002 Completed [facility] 00:00:00 [facility] DTAP 2002 Completed [facility] 00:00:00 [facility] HIB 4 Dose Schedule 2002 Completed [facility] 00:00:00 [facility] Pneumococcal 7 2002 Completed [facility] Conjugate, PCV7 00:00:00 [facility]Prevnar[facility] Polio (IPV/OPV) 2002 Completed [facility] 00:00:00 [facility] DTAP 2002 Completed [facility] 00:00:00 [facility] HIB 4 Dose Schedule 2002 Completed [facility] 00:00:00 [facility] Pneumococcal 7 2002 Completed [facility] Conjugate, PCV7 00:00:00 [facility]Prevnar[facility] Polio (IPV/OPV) 2002 Completed [facility] 00:00:00 [facility] DTAP 2002 Completed [facility] 00:00:00 [facility] HIB 4 Dose Schedule 2002 Completed [facility] 00:00:00 [facility] Pneumococcal 7 2002 Completed [facility] Conjugate, PCV7 00:00:00 [facility]ar[facility] Polio (IPV/OPV) 2002 Completed [facility] 00:00:00 [facility] DTAP 2002 Completed [facility] 00:00:00 [facility] HIB 4 Dose Schedule 2002 Completed [facility] 00:00:00 [facility] Pneumococcal 7 2002 Completed [facility] Conjugate, PCV7 00:00:00 [facility]ar[facility] Polio (IPV/OPV) 2002 Completed [facility] 00:00:00 [facility] DTAP 2002 Completed [facility] 00:00:00 [facility] HIB 4 Dose Schedule 2002 Completed [facility] 00:00:00 [facility] Pneumococcal 7 2002 Completed [facility] Conjugate, PCV7 00:00:00 [facility]Pre[facility]ar[facility] Polio (IPV/OPV) 2002 Completed [facility] 00:00:00 [facility] DTAP 2002 Completed [facility] 00:00:00 [facility] HIB 4 Dose Schedule 2002 Completed [facility] 00:00:00 [facility] Pneumococcal 7 2002 Completed [facility] Conjugate, PCV7 00:00:00 [facility]Prevnar[facility] Polio (IPV/OPV) 2002 Completed [facility] 00:00:00 [facility] DTAP 2002 Completed [facility] 00:00:00 [facility] HIB 4 Dose Schedule 2002 Completed [facility] 00:00:00 [facility] Pneumococcal 7 2002 Completed [facility] Conjugate, PCV7 00:00:00 [facility]Prevnar[facility] Polio (IPV/OPV) 2002 Completed [facility] 00:00:00 [facility] DTAP 2002 Completed [facility] 00:00:00 [facility] HIB 4 Dose Schedule 2002 Completed [facility] 00:00:00 [facility] Pneumococcal 7 2002 Completed [facility] Conjugate, PCV7 00:00:00 [facility]Prevnar[facility] Polio (IPV/OPV) 2002 Completed [facility] 00:00:00 [facility] DTAP 2002 Completed [facility] 00:00:00 [facility] HIB 4 Dose Schedule 2002 Completed [facility] 00:00:00 [facility] Pneumococcal 7 2002 Completed [facility] Conjugate, PCV7 00:00:00 [facility] (Prevnar7[facility] Polio (IPV/OPV) 2002 Completed [facility] 00:00:00 [facility] DTAP 2002 Completed [facility] 00:00:00 [facility] HIB 4 Dose Schedule 2002 Completed [facility] 00:00:00 [facility] Pneumococcal 7 2002 Completed [facility] Conjugate, PCV7 00:00:00 [facility] (Prevnar[facility] Polio (IPV/OPV) 2002 Completed [facility] 00:00:00 [facility] DTAP 2002 Completed [facility] 00:00:00 [facility] HIB 4 Dose Schedule 2002 Completed [facility] 00:00:00 [facility] Pneumococcal 7 2002 Completed [facility] Conjugate, PCV7 00:00:00 [facility] (Prevnar[facility] Polio (IPV/OPV) 2002 Completed [facility] 00:00:00 [facility] DTAP 2002 Completed [facility] 00:00:00 [facility] HIB 4 Dose Schedule 2002 Completed [facility] 00:00:00 [facility] Pneumococcal 7 2002 Completed [facility] Conjugate, PCV7 00:00:00 [facility]Prevnar[facility] Polio (IPV/OPV) 2002 Completed [facility] 00:00:00 [facility] DTAP 2002 Completed [facility] 00:00:00 [facility] HIB 4 Dose Schedule 2002 Completed [facility] 00:00:00 [facility] Pneumococcal 7 2002 Completed [facility] Conjugate, PCV7 00:00:00 [facility] (Prevnar[facility] Polio (IPV/OPV) 2002 Completed [facility] 00:00:00 [facility] DTAP 2002 Completed [facility] 00:00:00 [facility] HIB 4 Dose Schedule 2002 Completed [facility] 00:00:00 [facility] Pneumococcal 7 2002 Completed [facility] Conjugate, PCV7 00:00:00 [facility] (Prevnar[facility] Polio (IPV/OPV) 2002 Completed [facility] 00:00:00 [facility] DTAP 2002 Completed [facility] 00:00:00 [facility] HIB 4 Dose Schedule 2002 Completed [facility] 00:00:00 [facility] Pneumococcal 7 2002 Completed [facility] Conjugate, PCV7 00:00:00 [facility]Pre[facility]ar[facility] Polio (IPV/OPV) 2002 Completed [facility] 00:00:00 [facility] DTAP 2002 Completed [facility] 00:00:00 [facility] HIB 4 Dose Schedule 2002 Completed [facility] 00:00:00 [facility] Pneumococcal 7 2002 Completed [facility] Conjugate, PCV7 00:00:00 [facility] (Prevnar[facility] Polio (IPV/OPV) 2002 Completed [facility] 00:00:00 [facility] DTAP 2002 Completed [facility] 00:00:00 [facility] HIB 4 Dose Schedule 2002 Completed [facility] 00:00:00 [facility] Pneumococcal 7 2002 Completed [facility] Conjugate, PCV7 00:00:00 [facility] (Prevnar[facility] Polio (IPV/OPV) 2002 Completed [facility] 00:00:00 [facility] DTAP 2002 Completed [facility] 00:00:00 [facility] HIB 4 Dose Schedule 2002 Completed [facility] 00:00:00 [facility] Pneumococcal 7 2002 Completed [facility] Conjugate, PCV7 00:00:00 [facility] (Prevnar[facility] Polio (IPV/OPV) 2002 Completed [facility] 00:00:00 [facility] DTAP 2002 Completed [facility] 00:00:00 [facility] HIB 4 Dose Schedule 2002 Completed [facility] 00:00:00 [facility] Pneumococcal 7 2002 Completed [facility] Conjugate, PCV7 00:00:00 [facility] (Prevnar[facility] Polio (IPV/OPV) 2002 Completed [facility] 00:00:00 [facility] DTAP 2002 Completed [facility] 00:00:00 [facility] HIB 4 Dose Schedule 2002 Completed [facility] 00:00:00 [facility] Pneumococcal 7 2002 Completed [facility] Conjugate, PCV7 00:00:00 [facility] (Prevnar[facility] Polio (IPV/OPV) 2002 Completed [facility] 00:00:00 [facility] DTAP 2002 Completed [facility] 00:00:00 [facility] HIB 4 Dose Schedule 2002 Completed [facility] 00:00:00 [facility] Pneumococcal 7 2002 Completed [facility] Conjug[facility], PCV7 00:00[facility] Polio (IPV/OPV) 2002 Completed [facility] 00:00:00 [facility] DTAP 2002 Completed [facility] 00:00:00 [facility] HIB 4 Dose Schedule 2002 Completed [facility] 00:00:00 [facility] Hep B, Adol or Pedi 2002 Completed [facility] Dosage 00:00:00 [facility] Polio (IPV/OPV) 2002 Completed [facility] 00:00:00 [facility] DTAP 2002 Completed [facility] 00:00:00 [facility] HIB 4 Dose Schedule 2002 Completed [facility] 00:00:00 [facility] Hep B, Adol or Pedi 2002 Completed [facility] Dosage 00:00:00 [facility] Polio (IPV/OPV) 2002 Completed [facility] 00:00:00 [facility] DTAP 2002 Completed [facility] 00:00:00 [facility] HIB 4 Dose Schedule 2002 Completed [facility] 00:00:00 [facility] Hep B, Adol or Pedi 2002 Completed [facility] Dosage 00:00:00 [facility] Polio (IPV/OPV) 2002 Completed [facility] 00:00:00 [facility] DTAP 2002 Completed [facility] 00:00:00 [facility] HIB 4 Dose Schedule 2002 Completed [facility] 00:00:00 [facility] Hep B, Adol or Pedi 2002 Completed [facility] Dosage 00:00:00 [facility] Polio (IPV/OPV) 2002 Completed [facility] 00:00:00 [facility] DTAP 2002 Completed [facility] 00:00:00 [facility] HIB 4 Dose Schedule 2002 Completed [facility] 00:00:00 [facility] Hep B, Adol or Pedi 2002 Completed [facility] Dosage 00:00:00 [facility] Polio (IPV/OPV) 2002 Completed [facility] 00:00:00 [facility] DTAP 2002 Completed [facility] 00:00:00 [facility] HIB 4 Dose Schedule 2002 Completed [facility] 00:00:00 [facility] Hep B, Adol or Pedi 2002 Completed [facility] Dosage 00:00:00 [facility] Polio (IPV/OPV) 2002 Completed [facility] 00:00:00 [facility] DTAP 2002 Completed [facility] 00:00:00 [facility] HIB 4 Dose Schedule 2002 Completed [facility] 00:00:00 [facility] Hep B, Adol or Pedi 2002 Completed [facility] Dosage 00:00:00 [facility] Polio (IPV/OPV) 2002 Completed [facility] 00:00:00 [facility] DTAP 2002 Completed [facility] 00:00:00 [facility] HIB 4 Dose Schedule 2002 Completed [facility] 00[facility]00:00 [facility] Hep B, Adol or Pedi 2002 Completed [facility] Dosage 00:00:00 [facility] Polio (IPV/OPV) 2002 Completed [facility] 00:00:00 [facility] DTAP 2002 Completed [facility] 00:00:00 [facility] HIB 4 Dose Schedule 2002 Completed [facility] 00:00:00 [facility] Hep B, Adol or Pedi 2002 Completed [facility] Dosage 00:00:00 [facility] Polio (IPV/OPV) 2002 Completed [facility] 00:00:00 [facility] DTAP 2002 Completed [facility] 00:00:00 [facility] HIB 4 Dose Schedule 2002 Completed [facility] 00:00:00 [facility] Hep B, Adol or Pedi 2002 Completed [facility] Dosage 00:00:00 [facility] Polio (IPV/OPV) 2002 Completed [facility] 00:00:00 [facility] DTAP 2002 Completed [facility] 00:00:00 [facility] HIB 4 Dose Schedule 2002 Completed [facility] 00:00:00 [facility] Hep B, Adol or Pedi 2002 Completed [facility] Dosage 00:00:00 [facility] Polio (IPV/OPV) 2002 Completed [facility] 00:00:00 [facility] DTAP 2002 Completed [facility] 00:00:00 [facility] HIB 4 Dose Schedule 2002 Completed [facility] 00:00:00 [facility] Hep B, Adol or Pedi 2002 Completed [facility] Dosage 00:00:00 [facility] Polio (IPV/OPV) 2002 Completed [facility] 00:00:00 [facility] DTAP 2002 Completed [facility] 00:00:00 [facility] HIB 4 Dose Schedule 2002 Completed [facility] 00:00:00 [facility] Hep B, Adol or Pedi 2002 Completed [facility] Dosage 00:00:00 [facility] Polio (IPV/OPV) 2002 Completed [facility] 00:00:00 [facility] DTAP 2002 Completed [facility] 00:00:00 [facility] HIB 4 Dose Schedule 2002 Completed [facility] 00:00:00 [facility] Hep B, Adol or Pedi 2002 Completed [facility] Dosage 00:00:00 [facility] Polio (IPV/OPV) 2002 Completed [facility] 00:00:00 [facility] DTAP 2002 Completed [facility] 00:00:00 [facility] HIB 4 Dose Schedule 2002 Completed [facility] 00:00:00 [facility] Hep B, Adol or Pedi 2002 Completed [facility] Dosage 00:00:00 [facility] Polio (IPV/OPV) 2002 Completed [facility] 00:00:00 [facility] DTAP 2002 Completed [facility] 00:00:00 [facility] HIB 4 Dose Schedule 2002 Completed [facility] 00:00:00 [facility] Hep B, Adol or Pedi 2002 Completed [facility] Dosage 00:00:00 [facility] Polio (IPV/OPV) 2002 Completed [facility] 00:00:00 [facility] DTAP 2002 Completed [facility] 00:00:00 [facility] HIB 4 Dose Schedule 2002 Completed [facility] 00:00:00 [facility] Hep B, Adol or Pedi 2002 Completed [facility] Dosage 00:00:00 [facility] Polio (IPV/OPV) 2002 Completed [facility] 00:00:00 [facility] DTAP 2002 Completed [facility] 00:00:00 [facility] HIB 4 Dose Schedule 2002 Completed [facility] 00:00:00 [facility] Hep B, Adol or Pedi 2002 Completed [facility] Dosage 00:00:00 [facility] Polio (IPV/OPV) 2002 Completed [facility] 00:00:00 [facility] DTAP 2002 Completed [facility] 00:00:00 [facility] HIB 4 Dose Schedule 2002 Completed [facility] 00:00:00 [facility] Hep B, Adol or Pedi 2002 Completed [facility] Dosage 00:00:00 [facility] Polio (IPV/OPV) 2002 Completed [facility] 00:00:00 [facility] DTAP 2002 Completed [facility] 00:00:00 [facility] HIB 4 Dose Schedule 2002 Completed [facility] 00:00:00 [facility] Hep B, Adol or Pedi 2002 Completed [facility] Dosage 00:00:00 [facility] Polio (IPV/OPV) 2002 Completed [facility] 00:00:00 [facility] DTAP 2002 Completed [facility] 00:00:00 [facility] HIB 4 Dose Schedule 2002 Completed [facility] 00:00:00 [facility] Hep B, Adol or Pedi 2002 Completed [facility] Dosage 00:00:00 [facility] Polio (IPV/OPV) 2002 Completed [facility] 00:00:00 [facility] DTAP 2002 Completed [facility] 00:00:00 [facility] HIB 4 Dose Schedule 2002 Completed [facility] 00:00:00 [facility] Hep B, Adol or Pedi 2002 Completed [facility] Dosage 00:00:00 [facility] Polio (IPV/OPV) 2002 Completed [facility] 00:00:00 [facility] DTAP 2002 Completed [facility] 00:00:00 [facility] HIB 4 Dose Schedule 2002 Completed [facility] 00:00:00 [facility] Hep B, Adol or Pedi 2002 Completed [facility] Dosage 00:00:00 [facility] Polio (IPV/OPV) 2002 Completed [facility] 00:00:00 [facility] DTAP 2002 Completed [facility] 00:00:00 [facility] HIB 4 Dose Schedule 2002 Completed [facility] 00:00:00 [facility] Hep B, Adol or Pedi 2002 Completed [facility] Dosage 00:00:00 [facility] Polio (IPV/OPV) 2002 Completed [facility] 00:00:00 [facility] DTAP 2002 Completed [facility] 00:00:00 [facility] HIB 4 Dose Schedule 2002 Completed [facility] 00:00:00 [facility] Hep B, Adol or Pedi 2002 Completed [facility] Dosage 00:00:00 [facility] Polio (IPV/OPV) 2002 Completed [facility] 00:00:00 [facility] DTAP 2002 Completed [facility] 00:00:00 [facility] HIB 4 Dose Schedule 2002 Completed [facility] 00:00:00 [facility] Hep B, Adol or Pedi 2002 Completed [facility] Dosage 00:00:00 [facility] Polio (IPV/OPV) 2002 Completed [facility] 00:00:00 [facility] DTAP 2002 Completed [facility] 00:00:00 [facility] HIB 4 Dose Schedule 2002 Completed [facility] 00:00:00 [facility] Hep B, Adol or Pedi 2002 Completed [facility] Dosage 00:00:00 [facility] Polio (IPV/OPV) 2002 Completed [facility] 00:00:00 [facility] DTAP 2002 Completed [facility] 00:00:00 [facility] HIB 4 Dose Schedule 2002 Completed [facility] 00:00:00 [facility] Hep B, Adol or Pedi 2002 Completed [facility] Dosage 00:00:00 [facility] Polio (IPV/OPV) 2002 Completed [facility] 00:00:00 [facility] DTAP 2002 Completed [facility] 00:00:00 [facility] HIB 4 Dose Schedule 2002 Completed [facility] 00:00:00 [facility] Hep B, Adol or Pedi 2002 Completed [facility] Dosage 00:00:00 [facility] Polio (IPV/OPV) 2002 Completed [facility] 00:00:00 [facility] DTAP 2002 Completed [facility] [facility] HIB 4 Dose Schedule 2002 Completed [facility] 00:00:00 [facility] Hep B, Adol or Pedi 2002 Completed [facility] Dosage 00:00:00 [facility] Polio (IPV/OPV) 2002 Completed [facility] 00:00:00 [facility] DTAP 2002 Completed [facility] 00:00:00 [facility] HIB 4 Dose Schedule 2002 Completed [facility] 00:00:00 [facility] Hep B, Adol or Pedi 2002 Completed [facility] Dosage 00:00:00 [facility] Polio (IPV/OPV) 2002 Completed [facility] 00:00:00 [facility] DTAP 2002 Completed [facility] 00:00:00 [facility] HIB 4 Dose Schedule 2002 Completed [facility] 00:00:00 [facility] Hep B, Adol or Pedi 2002 Completed [facility] Dosage 00:00:00 [facility] Polio (IPV/OPV) 2002 Completed [facility] 00:[facility]:00 [facility] DTAP 2002 Completed [facility] 00:00:00 [facility] HIB 4 Dose Schedule 2002 Completed [facility] 00:00:00 [facility] Hep B, Adol or Pedi 2002 Completed [facility] Dosage 00:00:00 [facility] Polio (IPV/OPV) 2002 Completed [facility] 00:00:00 [facility] DTAP 2002 Completed [facility] 00:00:00 [facility] HIB 4 Dose Schedule 2002 Completed [facility] 00:00:00 [facility] Hep B, Adol or Pedi 2002 Completed [facility] Dosage 00:00:00 [facility] Polio (IPV/OPV) 2002 Completed [facility] 00:00:00 [facility] DTAP 2002 Completed [facility] 00:00:00 [facility] HIB 4 Dose Schedule 2002 Completed [facility] 00:00:00 [facility] Hep B, Adol or Pedi 2002 Completed [facility] Dosage 00:00:00 [facility] Polio (IPV/OPV) 2002 Completed [facility] 00:00:00 [facility] DTAP 2002 Completed [facility] 00:00:00 [facility] HIB 4 Dose Schedule 2002 Completed [facility] 00:00:00 [facility] Hep B, Adol or Pedi 2002 Completed [facility] Dosage 00:00:00 [facility] Polio (IPV/OPV) 2002 Completed [facility] 00:00:00 [facility] DTAP 2002 Completed [facility] 00:00:00 [facility] HIB 4 Dose Schedule 2002 Completed [facility] 00:00:00 [facility] Hep B, Adol or Pedi 2002 Completed [facility] Dosage 00:00:00 [facility] Polio (IPV/OPV) 2002 Completed [facility] 00:00:00 [facility] DTAP 2002 Completed [facility] 00:00:00 [facility] HIB 4 Dose Schedule 2002 Completed [facility] 00:00:00 [facility] Hep B, Adol or Pedi 2002 Completed [facility] of Dosage 00:00:00 [facility] Polio (IPV/OPV) 2002 Completed [facility] 00:00:00 [facility] DTAP 2002 Completed [facility] 00:00:00 [facility] HIB 4 Dose Schedule 2002 Completed [facility] 00:00:00 [facility] Hep B, Adol or Pedi 2002 Completed [facility] of Dosage 00:00:00 [facility] Polio (IPV/OPV) 2002 Completed [facility] 00:00:00 [facility] Hep B, Adol or Pedi 2002 Completed [facility] of Dosage 00:00:00 [facility] Hep B, Adol or Pedi 2002 Completed [facility] Dosage 00:00:00 [facility] Hep B, Adol or Pedi 2002 Completed [facility] Dosage 00:00:00 [facility] Hep B, Adol or Pedi 2002 Completed [facility] Dosage 00:00:00 [facility] Hep B, Adol or Pedi 2002 Completed [facility] Dosage 00:00:00 [facility] Hep B, Adol or Pedi [...] 2002 Completed [facility] of Dosage 00:00:00 [facility] Hep B, Adol or Pedi 2002 Completed [facility] of Dosage 00:00:00 [facility] Hep B, Adol or Pedi 2002 Completed [facility] of Dosage 00:00:00 [facility] Hep B, Adol or Pedi 2002 Completed [facility] of Dosage 00:00:00 [facility] Hep B, Adol or Pedi 2002 Completed [facility] of Dosage 00:00:00 [facility] Hep B, Adol or Pedi 2002 Completed [facility] of Dosage 00:00:00 [facility] Hep B, Adol or Pedi 2002 Completed [facility] of Dosage 00:00:00 [facility] Hep B, Adol or Pedi 2002 Completed [facility] of Dosage 00:00:00 [facility] Hep B, Adol or Pedi 2002 Completed [facility] of Dosage 00:00:00 [facility] Hep B, Adol or Pedi 2002 Completed [facility] of Dosage 00:00:00 [facility] Hep B, Adol or Pedi 2002 Completed [facility] of Dosage 00:00:00 [facility] Hep B, Adol or Pedi 2002 Completed [facility]ive [facility] of Dosage 00:00:00 [facility] Hep B, Adol or Pedi 2002 Completed [facility] of Dosage 00:00:00 [facility] Hep B, Adol or Pedi 2002 Completed [facility] of Dosage 00:00:00 [facility] Hep B, Adol or Pedi 2002 Completed [facility]ive [facility] of Dosage 00:00:00 [facility] Vital Signs Vital Name Observation Time Observation Value Comments Source Body temperature 2022-06-16 35.83 Linda [facility] 17:18:00 [facility] Body height 2022-06-16 160 cm University of 17:18:00 [facility] Body weight 2022-06-16 50.44 kg [place] of 17:18:00 [facility] BMI 2022-06-16 19.70 kg/m2 University of 17:18:00 [facility] Systolic blood 2022-06-01 94 mm[Hg] erp informed, University o f pressure 05:18: asymptomatic [facility] Diastolic blood 2022-06-01 71 mm[Hg] erp informed, University of pressure 05:18: asymptomatic [facility] Heart rate 2022-06-01 85 /min University of 05:18:00 [facility] Respiratory rate 2022-06-01 18 /min University of 05:18:00 [facility] Oxygen saturation 2022-06-01 100 /min [facility] in Arterial blood 05:18:00 [facility] [facility] Pulse oximetry [facility] Body temperature 2022-06-01 36.5 Linda University [facility] 04:31:00 [facility] Body height 2022-06-01 160 cm University of 04:31:00 [facility] Body weight 2022-06-01 51.256 kg University of 04:31: [facility] BMI 2022-06-01 20.02 kg/m2 University of 04:31:00 [facility] Body temperature 2022-05-19 36.28 Linda University of 18:: [facility] Body weight 2022-05-19 51.256 kg University of 18:: [facility] BMI 2022-05-19 20.02 kg/m2 University of 18::00 [facility] Body temperature 2022-04-21 36.22 Linda University of 20:32:00 [facility] Body height 2022-04-21 160 cm University of 20:32: [facility] Body weight 2022-04-21 50.349 kg University of 20:32: [facility] BMI 2022-04-21 19.66 kg/m2 University of 20:32:00 [facility] Systolic blood 2022-04-11 110 mm[Hg] University of pressure 03:10:00 [facility] Diastolic blood 2022-04-11 73 mm[Hg] University o f pressure 03:10:00 [facility] Heart rate 2022-04-11 88 /min University of 03:10:00 [facility] Respiratory rate 2022-04-11 18 /min University of 03:10:00 [facility] Oxygen saturation 2022-04-11 100 /min [facility] in Arterial blood 03:10:00 [facility] Pulse oxim[facility] Body temperature 2022-04-10 36.28 Linda University [facility] 22:10:00 [facility] Body weight 2022-04-10 49.896 kg University of 22:10:00 [facility] BMI 2022-04-10 19.80 kg/m2 University of 22:10:00 [facility] Systolic blood 2022-04-10 108 mm[Hg] University of pressure 21:48:00 [facility] Diastolic blood 2022-04-10 75 mm[Hg] University o f pressure 21:48:00 [facility] Heart rate 2022-04-10 127 /min University of 21:48:00 [facility] Body temperature 2022-04-10 36.61 Linda University of 21:48:00 [facility] Respiratory rate 2022-04-10 17 /min University of 21:48:00 [facility] Body height 2022-04-10 158.8 cm University of 21:48:00 [facility] Body weight 2022-04-10 49.896 kg University of 21:48:00 [facility] BMI 2022-04-10 19.80 kg/m2 University of 21:48:00 [facility] Oxygen saturation 2022-04-10 98 /min University of in Arterial blood 21:48:00 [facility] by Pulse oximetry Branch Systolic blood 2022-04-07 104 mm[Hg] University of pressure 18:00:00 [facility] Diastolic blood 2022-04-07 58 mm[Hg] University o f pressure 18:00:00 [facility] Heart rate 2022-04-07 64 /min University of 18:00:00 [facility] Body temperature 2022-04-07 36.39 Linda University of 18:00:00 [facility] Respiratory rate 2022-04-07 18 /min University of 18:00:00 [facility] Oxygen saturation 2022-04-07 96 /min University of in Arterial blood 18:00:00 [facility] [place] by Pulse oximetry Branch Body height 2022-04-04 161.3 cm University of 23:00:18 [facility] Body weight 2022-04-04 50.349 kg University of 23:00:18 [facility] BMI 2022-04-04 19.35 kg/m2 University of 23:00:18 [facility] Heart rate 2022-04-04 109 /min University of 21:03:00 [facility] Body temperature 2022-04-04 37.72 Linda University 21:03:00 [facility] Respiratory rate 2022-04-04 18 /min University of 21:03:00 [facility] Oxygen saturation 2022-04-04 95 /min [place] of in Arterial blood 21:03:00 [facility] by Pulse oximetry Branch Systolic blood 2022-04-04 98 mm[Hg] University of pressure 21:00:00 [facility] Diastolic blood 2022-04-04 64 mm[Hg] University o f pressure 21:00:00 [facility] Body height 2022-04-04 162.6 cm University 17:44:00 [facility] Body weight 2022-04-04 50.349 kg University of 17:44:00 [facility] BMI 2022-04-04 19.05 kg/m2 University 17:44:00 [facility] Systolic blood 2022-04-01 118 mm[Hg] University of pressure 06:00:00 [facility] Diastolic blood 2022-04-01 92 mm[Hg] University o f pressure 06:00:00 [facility] Heart rate 2022-04-01 78 /min [facility] 06:00:00 [facility] Respiratory rate 2022-04-01 16 /min University 06:00:00 [facility] Oxygen saturation 2022-04-01 98 /min [facility] in Arterial blood 06:00:00 [facility] by Pulse oximetry Branch Body height 2022-04-01 160 cm [facility] 03:48:00 [facility] Body weight 2022-04-01 56.7 kg University of 03:48:00 [facility] BMI 2022-04-01 22.14 kg/m2 University of 03:48:00 [facility] Height 2020-09-25 165.1 CM 23:56:00 Weight 2020-09-25 2.69 KG 23:56:00 Systolic blood 2022-08-22 117 mm[Hg] University of pressure 15:53:00 [facility] Diastolic blood 2022-08-22 80 mm[Hg] University o f pressure 15:53:00 [facility] Heart rate 2022-08-22 88 /min University of 15:53:00 [facility] Respiratory rate 2022-08-22 18 /min University 15:53:00 [facility] Body height 2022-08-22 160 cm University of 15:53:00 [facility] Body weight 2022-08-22 50.803 kg University of 15:53:00 [facility] BMI 2022-08-22 19.84 kg/m2 University of 15:53:00 [facility] Systolic blood 2022-07-25 100 mm[Hg] University of pressure 14:23:00 [facility] Diastolic blood 2022-07-25 78 mm[Hg] University o f pressure 14:23:00 [facility] Heart rate 2022-07-25 107 /min University of 14:23:00 [facility] Respiratory rate 2022-07-25 18 /min University of 14:23:00 [facility] Body height 2022-07-25 160 cm University of 14:23:00 [facility] Body weight 2022-07-25 50.803 kg University of 14:23:00 [facility] BMI 2022-07-25 19.84 kg/m2 University of 14:23:00 [facility] Body temperature 2022-06-16 35.83 Linda University of 17:18:00 [facility] Body height 2022-06-16 160 cm University of 17:18:00 [facility] Body weight 2022-06-16 50.44 kg University of 17:18:00 [facility] BMI 2022-06-16 19.70 kg/m2 University of 17:18:00 [facility] Systolic blood 2022-06-16 113 mm[Hg] University of pressure 16:33:00 [facility] Diastolic blood 2022-06-16 79 mm[Hg] University o f pressure 16:33:00 [facility] Heart rate 2022-06-16 112 /min University of 16:33:00 [facility] Respiratory rate 2022-06-16 18 /min University of 16:33:00 [facility] Body height 2022-06-16 160 cm University of 16:33:00 [facility] Body weight 2022-06-16 51.256 kg University of 16:33:00 [facility] BMI 2022-06-16 20.02 kg/m2 University of 16:33:00 [facility] Systolic blood 2022-06-13 117 mm[Hg] University of pressure 16:37:00 [facility] Diastolic blood 2022-06-13 85 mm[Hg] University o f pressure 16:37:00 [facility] Heart rate 2022-06-13 118 /min University of 16:37:00 [facility] Respiratory rate 2022-06-13 18 /min University of 16:37:00 [facility] Body height 2022-06-13 160 cm University of 16:37:00 [facility] Body weight 2022-06-13 50.803 kg University of 16:37:00 [facility] BMI 2022-06-13 19.84 kg/m2 University of 16:37:00 [facility] Oxygen saturation 2022-06-01 100 /min University of in Arterial blood 05:18:00 [facility] by Pulse oximetry [place] Body temperature 2022-06-01 36.5 Linda University of 04:31:00 [facility] Systolic blood 2022-05-19 124 mm[Hg] University of pressure 16:06:00 [facility] Diastolic blood 2022-05-19 85 mm[Hg] University o f pressure 16:06:00 [facility] Heart rate 2022-05-19 103 /min University of 16:06:00 [facility] Respiratory rate 2022-05-19 18 /min University of 16:06:00 [facility] Body height 2022-05-19 160 cm University of 16:06:00 [facility] Body weight 2022-05-19 51.256 kg University of 16:06:00 [facility] BMI 2022-05-19 20.02 kg/m2 University of 16:06:00 [facility] Systolic blood 2022-05-02 115 mm[Hg] University of pressure 13:53:00 [facility] Diastolic blood 2022-05-02 80 mm[Hg] University o f pressure 13:53:00 [facility] Heart rate 2022-05-02 103 /min University of 13:53:00 [facility] Respiratory rate 2022-05-02 18 /min University of 13:53:00 [facility] Body height 2022-05-02 160 cm University of 13:53:00 [facility] Body weight 2022-05-02 51.256 kg University of 13:53:00 [facility] BMI 2022-05-02 20.02 kg/m2 University of 13:53:00 [facility] Body temperature 2022-04-21 36.22 Linda University of 20:32:00 [facility] Body height 2022-04-21 160 cm University of 20:32:00 [facility] Body weight 2022-04-21 50.349 kg University of 20:32:00 [facility] BMI 2022-04-21 19.66 kg/m2 University of 20:32:00 [facility] Systolic blood 2022-04-21 104 mm[Hg] University of pressure 15:04:00 [facility] Diastolic blood 2022-04-21 71 mm[Hg] University o f pressure 15:04:00 [facility] Heart rate 2022-04-21 110 /min University of 15:04:00 [facility] Respiratory rate 2022-04-21 18 /min University of 15:04:00 [facility] Body height 2022-04-21 157.5 cm University of 15:04:00 [facility] Body weight 2022-04-21 49.896 kg University of 15:04:00 [facility] BMI 2022-04-21 20.12 kg/m2 University of 15:04:00 [facility] Systolic blood 2022-04-11 110 mm[Hg] University of pressure 03:10:00 [facility] Diastolic blood 2022-04-11 73 mm[Hg] University o f pressure 03:10:00 [facility] Heart rate 2022-04-11 88 /min University of 03:10:00 [facility] Respiratory rate 2022-04-11 18 /min University of 03:10:00 [facility] Oxygen saturation 2022-04-11 100 /min [facility] in Arterial blood 03:10:00 [facility] by Pulse oximetry [place] Body temperature 2022-04-10 36.28 Linda University [facility] 22:10:00 [facility] Body weight 2022-04-10 49.896 kg University of 22:10: [facility] BMI 2022-04-10 19.80 kg/m2 University of 22:10:00 [facility] Body height 2022-04-10 158.8 cm University of 21:48:00 [facility] Systolic blood 2022-04-06 114 mm[Hg] University of pressure 13:00:00 [facility] Diastolic blood 2022-04-06 71 mm[Hg] University o f pressure 13:00:00 [facility] Heart rate 2022-04-06 92 /min University of 13:00:00 [facility] Body temperature 2022-04-06 36.78 Linda University [facility] 13:00:00 [facility] Respiratory rate 2022-04-06 20 /min University of 13:00:00 [facility] Oxygen saturation 2022-04-06 96 /min [facility] in Arterial blood 13:00:00 [facility] by Pulse oximetry [place] Body height 2022-04-04 161.3 cm University of 23:00:18 [facility] Body weight 2022-04-04 50.349 kg University of 23:00:18 [facility] BMI 2022-04-04 19.35 kg/m2 University of 23:00:18 [facility] Systolic blood 2022-03-28 116 mm[Hg] University of pressure 14:54:00 [facility] Diastolic blood 2022-03-28 87 mm[Hg] University o f pressure 14:54:00 [facility] Heart rate 2022-03-28 113 /min University of 14:54:00 [facility] Respiratory rate 2022-03-28 18 /min University of 14:54:00 [facility] Body height 2022-03-28 160 cm University of 14:54:00 [facility] Body weight 2022-03-28 51.71 kg University of 14:54:00 [facility] BMI 2022-03-28 20.19 kg/m2 University of 14:54:00 [facility] Body temperature 2022-02-24 37 Linda University of 18:37:00 [facility] Body weight 2022-02-24 51.801 kg University of 18:37:00 [facility] BMI 2022-02-24 20.23 kg/m2 University of 18:37:00 [facility] Systolic blood 2022-02-21 133 mm[Hg] University of pressure 12:51:00 [facility] Diastolic blood 2022-02-21 49 mm[Hg] University o f pressure 12:51:00 [facility] Heart rate 2022-02-21 108 /min University of 12:51:00 [facility] Respiratory rate 2022-02-21 18 /min University of 12:51:00 [facility] Body height 2022-02-21 160 cm University of 12:51:00 [facility] Oxygen saturation 2022-01-24 98 /min [facility] in Arterial blood 00:45:00 [facility] by Pulse oximetry Branch Head 2009-07-13 51 cm University of Occipital-frontal 18:51:00 [facility] circumference by Branch Tape measure Procedures Procedure Date / Time Performing Clinician Source Performed XR PELVIS 3+ VW 2022-06-16 17:07:12 Arnaldo [facility] XR PELVIS 3+ VW 2022-06-16 17:07:12 Arnaldo [facility] CONSENT/REFUSAL FOR 2022-06-01 04:17:40 Doctor Unasslanette, [facility] DIAGNOSIS AND TREATMENT [place] [facility] CONSENT/REFUSAL FOR 2022-06-01 04:17:40 Doctor Unassigned, [facility] DIAGNOSIS AND TREATMENT [place] [facility] EMERGENCY SERVICES 2022-05-31 06:01:00 Doctor Fidel, [facility] AGREEMENTS AND [place] [facility] AUTHORIZATIONS XR PELVIS 3+ VW 2022-05-19 16:43:54 Arnaldo [facility] XR PELVIS 3+ VW 2022-05-19 16:43:54 Arnaldo [facility] XR PELVIS 3+ VW 2022-04-21 20:26:51 Arnaldo [facility] XR HIPS 3 VW RIGHT 2022-04-11 02:02:47 Irasema Robledo [facility] XR PELVIS <3 VW 2022-04-11 02:02:47 Venkat [facility] XR PELVIS <3 VW 2022-04-11 02:02[facility]47 [facility] RIGHT 2022-04-11 02:02:47 Irasema Robledo [facility] POCT TEST 2022-04-11 01:46:00 Irasema Robledo [facility] POCT TEST 2022-04-11 01:46:00 Irasema Robledo [facility] URINALYSIS 2022-04-11 01:45:00 [facility] 2022-04-11 01:45:00 [facility] COMP. METABOLIC PANEL 2022-04-10 23:02:00 Irasema Robledo [facility] ([id number]) Medical Branch CBC WITH DIFF 2022-04-10 23:02:00 [facility] CBC WITH DIFF 2022-04-10 23:02:00 Irasema Robledo [facility] COMP. METABOLIC PANEL 2022-04-10 23:02:00 Irasema Robledo [facility] ([id number]) Medical Branch EMERGENCY SERVICES 2022-04-10 05:01:00 Doctor Unassigned, [facility] AGREEMENTS AND [place] [facility] AUTHORIZATIONS EMERGENCY DEPARTMENT 2022-04-10 05:01:00 Doctor Unassigned, [facility] DOCUMENTS [place] [facility] XR CLAVICLE COMP 2022-04-05 19:40:00 Eyad Lobo [facility] XR CLAVICLE COMP 2022-04-05 19:40:00 Eyad Lobo [facility] URINALYSIS 2022-04-05 11:07:00 Greg [facility] URINALYSIS 2022-04-05 11:07:00 Greg [facility] CBC WITH DIFF 2022-04-05 10:24:00 Jimena Ny [facility] BASIC METABOLIC PANEL 2022-04-05 10:24:[address] [facility] (NA, K, CL, CO2, GLUCOSE, [place] [facility] BUN, CREATININE, [place]) BASIC METABOLIC PANEL 2022-04-05 10:24:00 Jimena Ny [facility] (NA, K, CL, CO2, GLUCOSE, [place] [facility] BUN, CREATININE, [place]) CBC WITH DIFF 2022-04-05 10:24:00 Jimena Ny [facility] COVID-19 (ID NOW RAPID 2022-04-05 00:38:00 Anant Jimena [facility] TESTING) [facility] LAB ONLY COVID 2022-04-05 00:38:00 Anant Jimena [facility] INTERPRETATION [facility] COVID-19 (ID NOW RAPID 2022-04-05 00:38:00 Jimena Ny [facility] TESTING) [facility] LAB ONLY COVID 2022-04-05 00:38:00 Jimena Ny [facility] INTERPRETATION [facility] TROPONIN I 2022-04-05 00:25[facility] 2022-04-05 00:25:00 Chou [facility] Andrea XR SHOULDER 2+ VW RIGHT [facility]22[facility]04[facility]05 [facility]W LEFT 2022-04-05 00:11:00 Chou [facility] Andrea XR FOOT 3+ VW LEFT 2022-04-05 00:11:00 [facility]ou [facility] [facility] XR PELVIS 3+ VW 2022-04-05 00:11:00 Flo [facility] XR KNEE <3 VW RIGHT 2022-04-05 00:11:00 Flo [facility] XR FOOT 3+ VW LEFT 2022-04-05 00:11:00 Chou [facility] Andrea XR KNEE <3 VW RIGHT 2022-04-05 00:11:00 Flo [facility] Branch XR KNEE 3 VW LEFT 2022-04-05 00:11:00 Chou [facility] Andrea XR PELVIS 3+ VW 2022-04-05 00:11:00 Flo [facility] XR SHOULDER 2+ VW RIGHT 2022-04-05 00:11:00 Chou [facility] Andrea HB ECG ROUTINE & RHYTHM 2022-04-04 23:08:36 Chou [facility] Andrea HB ECG ROUTINE & RHYTHM 2022-04-04 23:08:36 José Antonio Hanna [facility] Andrea HB ABO GROUPING 2022-04-04 19:55:[address] [facility] HB ABO GROUPING 2022-04-04 19:55:[address] [facility] CT TRAUMA HEAD WO 2022-04-04 19:10:01 Nolvia Husain [facility] CONTRAST Medical Branch CT TRAUMA CERVICAL SPINE 2022-04-04 19:10:01 Nolvia Husain [facility] CONTRAST Medical Branch CT TRAUMA THORACIC SPINE 2022-04-04 19:10:01 Nolvia Husain [facility] CONTRAST Medical Branch CT TRAUMA LUMBAR SPINE WO 2022-04-04 19:10:01 Nolvia Husain [facility] CONTRAST Medical Branch CT TRAUMA HEAD WO 2022-04-04 19:10:01 Nolvia Husain [facility] CONTRAST Medical Branch CT TRAUMA CERVICAL SPINE 2022-04-04 19:10:01 Nolvia Husain [facility] CONTRAST Medical Branch CT TRAUMA THORACIC SPINE 2022-04-04 19:10:01 Nolvia Husain [facility] CONTRAST Medical Branch CT TRAUMA LUMBAR SPINE WO 2022-04-04 19:10:01 Nolvia Husain [facility] CONTRAST Medical Branch CT TRAUMA THORAX W 2022-04-04 19:08:26 Nolvia Husain [facility] CONTRAST Medical Branch CT TRAUMA ABDOMEN PELVIS 2022-04-04 19:08:26 Nolvia Husain [facility] CONTRAST Medical Branch CT TRAUMA THORAX W 2022-04-04 19:08:26 Nolvia Husain [facility] CONTRAST Medical Branch CT TRAUMA ABDOMEN PELVIS 2022-04-04 19:08:26 Nolvia Husain [facility] CONTRAST Medical Branch ABORH CONFIRMATION (LAB 2022-04-04 19:02:00 Nolvia Husain [facility] ONLY) Medical Branch ABORH CONFIRMATION (LAB 2022-04-04 19:02:00 Nolvia Husain [facility] ONLY) Medical Branch LIPASE 2022-04-04 18:35:[address] [facility] TEST, SERUM 2022-04-04 18:35:00 Nolvia Husain [facility] COMP. METABOLIC PANEL 2022-04-04 18:35:00 Nolvia Husain [facility] ([id number]) [facility] COMP. METABOLIC PANEL 2022-04-04 18:35:00 Nolvia Husain [facility] ([id number]) Medical Branch LIPASE 2022-04-04 18:35:[address] [facility] TEST, SERUM 2022-04-04 18:35:00 Nolvia Husain [facility] CBC WITH DIFF 2022-04-04 18:20:[address] [facility] CBC WITH DIFF 2022-04-04 18:20:[address] [facility] EMERGENCY SERVICES 2022-04-04 05:01:00 Doctor Unassigned, [facility] AGREEMENTS AND [place] [facility] AUTHORIZATIONS EMERGENCY DEPARTMENT 2022-04-04 05:01:00 Doctor Unassigned, [facility] DOCUMENTS [place] [facility] EMERGENCY SERVICES 2022-04-04 05:01:00 Doctor Unassigned, [facility] AGREEMENTS AND [facility] AUTHORIZATIONS EMERGENCY DEPARTMENT 2022-04-04 05:01:00 Doctor Unassigned, [facility] DOCUMENTS [place] [facility] POCT TEST 2022-04-01 04:37:00 Deonna Melendrez [facility] POCT TEST 2022-04-01 04:37:00 Deonna Melendrez [facility] [place] LIPASE 2022-04-01 04:36:[address] [facility] COMP. METABOLIC PANEL 2022-04-01 04:36:00 Deonna Melendrez [facility] ([id number]) [facility] CBC WITH DIFF 2022-04-01 04:36:[address] [facility] URINALYSIS 2022-04-01 04:36:[address] [facility] CBC WITH DIFF 2022-04-01 04:36:[address] [facility] COMP. METABOLIC PANEL 2022-04-01 04:36:00 Deonna Melendrez [facility] ([id number]) Medical Branch URINALYSIS 2022-04-01 04:36:[address] [facility] LIPASE 2022-04-01 04:36:[address] [facility] NOTICE OF PRIVACY 2022-04-01 03:37:12 Doctor Fidel [facility] [place] [facility] NOTICE OF PRIVACY 2022-04-01 03:37:12 Doctor Fidel, [facility] [place] [facility] CONSENT/REFUSAL FOR 2022-04-01 03:36:55 Doctor Parra [facility] DIAGNOSIS AND TREATMENT [place] [facility] CONSENT/REFUSAL FOR 2022-04-01 03:36:55 Doctor Parra [facility] DIAGNOSIS AND TREATMENT [facility] EMERGENCY SERVICES 2022-03-31 05:01:00 Doctor Parra [facility] AGREEMENTS AND [place] [facility] AUTHORIZATIONS SARS-COV-2 COVID-19 2022-03-17 16:49:14 Doctor Parra [facility] MIKE-SUCROSE VACCINE 12 [place] [facility] YRS+, BIVALENT 0.3ML, IM, (PFIZER ARITA TOP BOOSTER) SARS-COV-2 COVID-19 2022-03-17 16:49:14 Doctor Parra [facility] IMKE-SUCROSE VACCINE 12 [place] [facility] YRS+, BIVALENT 0.3ML, IM, (PFIZER ARITA TOP BOOSTER) XR PELVIS 3+ VW 2022-02-24 18:13:00 Bouchra Mcintosh [facility] EXTERNAL PROVIDER RECORDS 2022-02-22 05:01:00 Doctor Parra [facility] [place] [facility] EMERGENCY SERVICES 2022-01-23 05:01:00 Doctor Parra [facility] AGREEMENTS AND [place] [facility] AUTHORIZATIONS EMERGENCY DEPARTMENT 2022-01-23 05:01:00 Doctor Parra [facility] DOCUMENTS [place] [facility] Encounters Start End Encounter Admission Attending Care Care Encounter Source Date/Time Date/Time Type Type Clinicians Facility Department ID 2021-11-02 Outpatient [facility] [id number] CT 11:00:33 [id number] [facility] 2021-07-09 Inpatient [facility] [id number] [facility] 12:46:00 14 2021-05-25 Inpatient [facility] [id number] [facility] 23:19:00 94 2021-04-30 Emergency [facility] [id number] Univers 23:08:18 ity of [facility] 2022-08-22 2022-08-22 Outpatient R SELF, [facility] [id number] Univers 10:15:00 12:05:25 JAMES braxton [facility] 2022-08-22 2022-08-22 Travel 1.2.840.1 1.2.369.875 [id number] Univers 00:00:00 00:00:00 06120.1.1 350.1.13.10 ity of 3.104.2.[place] 084.8 [place] l .8 [place] 2022-07-25 2022-07-25 Outpatient R SELF, [facility] [id number] Univers 08:45:00 10:27:30 JAMES braxton [facility] 2022-07-25 2022-07-25 Travel 1.2.840.1 1.2.692.751 [id number] Univers 00:00:00 00:00:00 72297.1.1 350.1.13.10 ity of 3.104.2.7 [place]3.0164[place] 084.8 Med[place] l .8 [place] 2022-07-15 2022-07-15 Emergency EM Ramirez, HCATB EO3 [id number] [facility] 19:20:00 21:08:00 Jose Moncada [facility] [place] 2022-07-04 2022-07-04 Emergency EM Eric Moore HCAPM GAYLA LA00 [id number] [facility] 16:22:00 17:00:00 83 [facility] [place] 2022-06-16 2022-06-16 [facility] 1.2.840.8 [id number] Univers 10:58:02 23:59:00 Encounter Bouchra 73162.1.1 it y of 3.104.2.7 [place] .3.103757 Medica l .8 [place] 2022-06-16 2022-06-16 [facility] [id number] Univers 10:20:00 11:48:13 BOUCHRA ity of [facility] 2022-06-16 2022-06-16 Office Arnaldo, 1.2.840.1 [id number] Univers 10:20:00 11:48:13 Visit Bouchra 95675.1.1 ity of 3.104.2.7 [place] .3.804327 Medica l .8 [place] 2022-06-16 2022-06-16 Travel 1.2.840.1 1.2.267.710 1634 [id number] Univers 00:00:00 00:00:00 36205.1.1 350.1.13.10 ity of 3.104.2.7 [place].698 [place]3.634732 084.8 Medica l .8 [place] 2022-06-13 2022-06-13 [facility] [id number] Univers 11:00:00 11:34:17 JAMES ity o f [facility] 2022-06-13 2022-06-13 Travel 1.2.840.1 1.2.375.583 [id number] [id number] Univers 00:00:00 00:00:00 36723.1.1 350.1.13.10 ity of 3.104.2.[place].698 [place]3.788[place] 084.8 Medica l .8 [place] 2022-05-31 2022-06-01 Emergency [address] PARVIN [facility] ERT [id number] Univers 22:37:00 00:11:00 DEONNA ity of [facility] 2022-05-31 2022-06-01 Emergency Parvin, 1.2.840.9 [id number] Univers 22:37:00 00:11:00 Deonna Murillo 54544.1.1 ity of 3.104.2.7 [place] .3.085147 Medica l .8 [place] 2022-05-31 2022-05-31 Travel 1.2.840.1 1.2.461.863 [id number] [id number] Univers 00:00:00 00:00:00 85815.1.1 350.1.13.10 ity of 3.104.2.[place].698 [place]3.9760[place] 084.8 Medica l .8 [place] 2022-05-23 2022-05-23 Outpatient R [facility], [facility] [id number] Univers 10:15:00 10:15:00 JAMES erickson o [facility] 2022-05-19 2022-05-19 [facility], 1.2.840.5 [id number] [facility] 10:33:33 23:59:00 Encounter Bouchra 65189.1.1 it y of 3.104.2.7 [place] .3.016448 Medica l .8 [place] 2022-05-19 2022-05-19 [facility], 1.2.840.8 [id number] [facility] 12:50:00 12:50:00 Visit Bouchra 50352.1.1 ity of 3.104.2.7 [place] .3.241025 Medica l .8 [place] 2022-05-19 2022-05-19 Outpatient R [facility] [id number] [facility] 12:50:00 12:42:46 BOUCHRA ity of [facility] 2022-05-19 2022-05-19 Travel 1.2.840.1 1.2.422.579 9019 [id number] Univers 00:00:00 00:00:00 66534.1.1 350.1.13.10 ity of 3.104.2.[place].698 [place]3.226215 084.8 Medica l .8 [place] 2022-05-02 2022-05-02 Outpatient R SELF, [facility] [id number] Univers 08:45:00 09:32:43 JAMES braxton f [facility] 2022-05-02 2022-05-02 Travel 1.2.840.1 1.2.150.994 [id number] [id number] Univers 00:00:00 00:00:00 16577.1.1 350.1.13.10 ity of 3.104.2.7 [place]7.[place].698 [place]3.877712 084.8 Medica l .8 Branch 2022-04-21 2022-04-21 [facility] [id number] Univers 15:08:38 23:59:00 BOUCHRA ity of [facility] 2022-04-21 2022-04-21 [facility], 1.2.840.7 [id number] Univers 15:08:38 23:59:00 Encounter Bouchra 88859.1.1 it y of 3.104.2.7 [place] .3.957198 Medica l .8 [place] 2022-04-21 2022-04-21 [facility], 1.2.840.8 [id number] Univers 15:20:00 16:19:45 Visit Bouchra 22920.1.1 ity of 3.104.2.7 [place] .3.940086 Medica l .8 Branch 2022-04-21 2022-04-21 Travel 1.2.840.1 1.2.497.490 4340 [id number] Univers 00:00:00 00:00:00 48581.1.1 350.1.13.10 ity of 3.104.2.7 [place].698 [place]3.013299 084.8 Medica l .8 Branch 2022-04-10 2022-04-10 Emergency X ROBLEDO, [facility] ERT [id number] Univers 17:11:00 22:14:00 IRASEMA ity of [facility] 2022-04-10 2022-04-10 Emergency Robledo, 1.2.840.1 [id number] Univers 17:11:00 22:14:00 Irasema 93618.1.1 ity of 3.104.2.7 [place] .3.827970 Medica l .8 Branch 2022-04-10 2022-04-10 Urgent MariShivani gardner J 1.2.840.1 [id number] Univers 16:40:00 18:22:07 [facility] 15323.1.1 ity of 3.104.2.7 [place] .3.026494 Medica l .8 [place] 2022-04-10 2022-04-10 [facility] [id number] Univers 16:40:00 16:40:00 SHIVANI ity o f [facility] 2022-04-10 2022-04-10 Travel 1.2.840.1 1.2.627.856 0622 [id number] Univers 00:00:00 00:00:00 10794.1.1 350.1.13.10 ity of 3.104.2.7 [place].3.698 [place]3.131931 084.8 Medica l .8 [place] 2022-04-08 2022-04-08 Transition Moise, 1.2.840.6 [id number] Univers 00:00:00 00:00:00 of Care Negrita 97305.1.1 i ty of 3.104.2.7 [place] .3.794633 Medica l .8 [place] 2022-04-04 2022-04-07 Hospital Person, 1.2.840.1 [id number] Univers 17:33:00 17:00:00 Encounter Keagan 97257.1.1 it y of 3.104.2.7 [place] .3.492119 Medica l .8 [place] 2022-04-06 2022-04-06 [facility], 1.2.840.8 [id number] Univers 00:00:00 00:00:00 Management Care 60678.1.1 i ty of Transition 3.104.2.7 Harley as .3.770125 Medica l .8 [place] 2022-04-04 2022-04-04 Emergency X ANN [facility] ERT [id number] Univers 12:41:00 16:56:00 NOLVIA ity of [facility] 2022-04-04 2022-04-04 [facility] [id number] Univers 12:41:00 16:56:00 ONLVIA ity of [facility] 2022-04-04 2022-04-04 Emergency Husain, 1.2.840.5 [id number] Univers 12:41:00 16:56:00 Nolvia 92485.1.1 ity of 3.104.2.7 [place] .3.344547 Medica l .8 [place] 2022-04-04 2022-04-04 Travel 1.2.840.1 1.2.726.532 4419 [id number] Univers 00:00:00 00:00:00 42984.1.1 350.1.13.10 ity of 3.104.2.7 [place].3.698 [place]3.937128 084.8 Medica l .8 [place] 2022-03-31 2022-04-01 Emergency [facility] [id number] Univers 22:46:00 01:29:00 DEONNA ity of [facility] 2022-03-31 2022-04-01 Emergency Parvin, 1.2.840.0 [id number] Univers 22:46:00 01:29:00 Deonna Murillo 13763.1.1 ity of 3.104.2.7 [place] .3.198294 Medica l .8 [place] 2022-03-31 2022-03-31 Orders Doctor 1.2.840.4 [id number] Univers 00:00:00 00:00:00 Only Unassigned, 06554.1.1 ity of [place] 3.104.2.7 [place] .3.103062 Medica l .8 Branch 2022-03-31 2022-03-31 Travel 1.2.840.1 1.2.195.656 9981 0137 Univers 00:00:00 00:00:00 87434.1.1 350.1.13.10 ity of 3.104.2.7 [place]7.3.698 [place]3.331772 084.8 Medica l .8 Branch 2022-03-28 2022-03-28 Outpatient R REYNALDO [facility] [id number] Univers 10:15:00 12:05:24 JAMES ity o f [facility] 2022-03-28 2022-03-28 Travel 1.2.840.1 1.2.984.165 0384 [id number] Univers 00:00:00 00:00:00 77611.1.1 350.1.13.10 ity of 3.104.2.7 [place]7.3.698 [place] .3.829591 084.8 Medica l .8 [place] 2022-03-17 2022-03-17 Imm/Inj Vignesh Mack P 1.2.840.1 [id number] Univers 11:30:00 12:25:54 Visit Janice Orosco 17947.1.1 ity of 3.104.2.7 [place] .3.390353 Medica l .8 [place] 2022-03-17 2022-03-17 Outpatient R FREDERICK [facility] [id number] Univers 10:30:00 11:13:04 VIGNESH ity of [facility] 2022-03-17 2022-03-17 Travel 1.2.840.1 1.2.382.362 8340 [id number] Univers 00:00:00 00:00:00 55257.1.1 350.1.13.10 ity of 3.104.2.7 [place]7.3.698 [place] .3.035215 084.8 Medica l .8 [place] 2022-02-24 2022-02-24 [facility], 1.2.840.8 [id number] Univers 13:02:19 23:59:00 Encounter Bouchra 34997.1.1 it y of 3.104.2.7 [place] .3.088903 Medica l .8 [place] 2022-02-24 2022-02-24 [facility], 1.2.840.3 [id number] Univers 13:02:19 23:59:00 Encounter Bouchra 57390.1.1 it y of 3.104.2.7 [place] .3.420828 Medica l .8 [place] 2022-02-24 2022-02-24 Outpatient R ARNALDO [facility] [id number] Univers 13:00:00 14:33:28 BOUCHRA ity of [facility] 2022-02-24 2022-02-24 Office Arnaldo, 1.2.840.6 [id number] Univers 13:00:00 14:33:28 Visit Bouchra 43576.1.1 ity of 3.104.2.7 [place] .3.147346 Medica l .8 [place] 2022-02-24 2022-02-24 [facility] [id number] Univers 13:00:00 13:00:00 BOUCHRA ity of [facility] 2022-02-24 2022-02-24 Travel 1.2.840.1 1.2.988.651 2211 [id number] Univers 00:00:00 00:00:00 81242.1.1 350.1.13.10 ity of 3.104.2.7 [place]7.3.698 [place] .3.508349 084.8 Medica l .8 [place] 2022-02-22 2022-02-22 Orders Doctor 1.2.840.2 [id number] Univers 00:00:00 00:00:00 Only Unassigned, 77276.1.1 ity of [place] 3.104.2.7 [place] .3.959761 Medica l .8 [place] 2022-02-22 2022-02-22 Orders Doctor 1.2.840.2 [id number] Univers 00:00:00 00:00:00 Only Unassigned, 34709.1.1 ity of [place] 3.104.2.7 [place] .3.007606 Medica l .8 [place] 2022-02-21 2022-02-21 Outpatient R REYNALDO [facility] [id number] Univers 08:00:00 08:48:33 JAMES ity o f [facility] 2022-02-21 2022-02-21 Travel 1.2.840.1 1.2.413.275 7031 [id number] Univers 00:00:00 00:00:00 01619.1.1 350.1.13.10 ity of 3.104.2.7 [place]7.3.698 [place] .3.231850 084.8 Medica l .8 Branch 2022-02-21 2022-02-21 Travel 1.2.840.1 1.2.717.033 7198 9562 Univers 00:00:00 00:00:00 62938.1.1 350.1.13.10 ity of 3.104.2.7 [place]7.3.698 [place] .3.692047 084.8 Medica l .8 Branch 2022-01-23 2022-01-23 Emergency X CHECO, K [facility] ERT [id number] Univers 19:42:00 21:04:00 ity of [facility] 2022-01-23 2022-01-23 Emergency Checo, K 1.2.840.5 [id number] Univers 19:42:00 21:04:00 Bree 39502.1.1 ity of 3.104.2.7 [place] .3.740526 Medica l .8 Branch 2022-01-23 2022-01-23 Emergency Checo, K 1.2.840.7 [id number] Univers 19:42:00 21:04:00 Bree 86538.1.1 ity of 3.104.2.7 [place] .3.133221 Medica l .8 Branch 2022-01-23 2022-01-23 Travel 1.2.840.1 1.2.100.742 8803 [id number] Univers 00:00:00 00:00:00 25823.1.1 350.1.13.10 ity of 3.104.2.7 4.2.7.3.698 [place] .3.996978 084.8 Medica l .8 Branch 2022-01-23 2022-01-23 Travel 1.2.840.1 1.2.689.324 0531 2965 Univers 00:00:00 00:00:00 10619.1.1 350.1.13.10 ity of 3.104.2.7 4.[place]7.3.698 [place] .3.367553 084.8 Medica l .8 [place] 2022-01-17 2022-01-17 Outpatient R SELF, [facility] [id number] Univers 10:15:00 11:23:04 JAMES erickson o f [facility] 2022-01-17 2022-01-17 Outpatient R SELF, [facility] [id number] Univers 10:15:00 11:23:04 JAMES erickson o [facility] 2022-01-17 2022-01-17 Travel 1.2.840.1 1.2.074.372 2469 6960 [facility] 00:00:00 00:00:00 53295.1.1 350.1.13.10 ity of 3.104.2.7 [place]7.3.698 [place] .3.192423 084.8 Medica l .8 [place] 2022-01-17 2022-01-17 Travel 1.2.840.1 1.2.944.711 0949 6960 Univers 00:00:00 00:00:00 84931.1.1 350.1.13.10 ity of 3.104.2.7 [place]7.3.698 [place] .3.768174 084.8 Medica l .8 [place] 2021-12-31 2021-12-31 Outpatient R FISH, ASH [facility] [id number] Univers 16:00:00 17:22:54 ity of [facility] 2021-12-31 2021-12-31 Office Fish, Ash 1.2.840.4 [id number] [facility] 16:00:00 17:22:54 [place] L 56376.1.1 ity of 3.104.2.7 [place] .3.841701 Medica l .8 [place] 2021-12-31 2021-12-31 Office Fish, Ash 1.2.840.5 [id number] Univers 16:00:00 17:22:54 Visit Maggie Brooks 80558.1.1 ity of 3.104.2.7 [place] .3.414636 Medica l .8 [place] 2021-12-31 2021-12-31 Outpatient R ASH RAMIREZ [facility] [id number] Univers 16:00:00 16:00:00 ity of [facility] 2021-12-31 2021-12-31 Travel 1.2.840.1 1.2.772.157 [id number] [id number] Univers 00:00:00 00:00:00 35574.1.1 350.1.13.10 ity of 3.104.2.7 [place]7.3.698 [place] .3.241478 084.8 Medica l .8 [place] 2021-12-31 2021-12-31 Travel 1.2.840.1 1.2.454.413 4394 7179 Univers 00:00:00 00:00:00 96712.1.1 350.1.13.10 ity of 3.104.2.7 4.[place]7.3.698 [place] .3.851715 084.8 Medica l .8 [place] 2021-12-20 2021-12-20 Outpatient R REYNALDO, [facility] [id number] Univers 10:30:00 11:58:18 JAMES ity o f [facility] 2021-12-20 2021-12-20 Travel 1.2.840.1 1.2.240.022 4910 [id number] Univers 00:00:00 00:00:00 39870.1.1 350.1.13.10 ity of 3.104.2.7 4.2.7.3.698 [place] .3.259955 084.8 Medica l .8 [place] 2021-12-20 2021-12-20 Travel 1.2.840.1 1.2.625.148 6660 [id number] Univers 00:00:00 00:00:00 82343.1.1 350.1.13.10 ity of 3.104.2.7 4.2.7.3.698 [place] .3.507412 084.8 Medica l .8 [place] 2021-12-20 2021-12-20 Travel 1.2.840.1 1.2.054.034 3341 9777 Univers 00:00:00 00:00:00 62528.1.1 350.1.13.10 ity of 3.104.2.7 4.2.7.3.698 [place] .3.388506 084.8 Medica l .8 [place] 2021-12-13 2021-12-13 [facility] [id number] Univers 08:00:00 08:00:00 HANDY itadrian [facility] 2021-12-06 2021-12-06 Urgent Shivani Guerra 1.2.840.1 [id number] Univers 12:00:00 12:16:45 Akiko Gonzalez 43633.1.1 ity of 3.104.2.7 [place] .3.363642 Medica l .8 [place] 2021-12-06 2021-12-06 Urgent Shivani Guerra 1.2.840.1 [id number] Univers 12:00:00 12:16:45 Akiko Gonzalez 41048.1.1 ity of 3.104.2.7 [place] .3.453996 Medica l .8 [place] 2021-12-06 2021-12-06 [facility] [id number] Univers 12:00:00 12:16:45 AKIKO erickson [facility] 2021-12-06 2021-12-06 Urgent Shivani Guerra 1.2.840.1 [id number] Univers 12:00:00 12:16:45 Akiko Gonzalez 43919.1.1 ity of 3.104.2.7 [place] .3.748051 Medica l .8 [place] 2021-12-06 2021-12-06 Travel 1.2.840.1 1.2.565.213 [id number] Univers 00:00:00 00:00:00 39244.1.1 350.1.13.10 ity of 3.104.2.7 [place].3.698 [place] .3.460826 084.8 Medica l .8 [place] 2021-12-06 2021-12-06 Travel 1.2.840.1 1.2.434.040 1119 [id number] Univers 00:00:00 00:00:00 14910.1.1 350.1.13.10 ity of 3.104.2.7 [place].3.698 [place] .3.449241 084.8 Medica l .8 [place] 2021-12-06 2021-12-06 Travel 1.2.840.1 1.2.099.449 2503 2730 Univers 00:00:00 00:00:00 13900.1.1 350.1.13.10 ity of 3.104.2.7 [place].3.698 [place] .3.151077 084.8 Medica l .8 [place] 2021-11-26 2021-11-26 Office Fish, Ash 1.2.840.7 [id number] Univers 15:00:00 15:40:48 Visit 79780.1.1 ity of 3.104.2.7 [place] .3.098565 Medica l .8 [place] 2021-11-26 2021-11-26 Outpatient R FISH, [facility] [id number] Univers 15:00:00 15:40:48 ity of [facility] 2021-11-26 2021-11-26 Office Fish, Ash 1.2.840.2 [id number] Univers 15:00:00 15:40:48 Visit 83393.1.1 ity of 3.104.2.7 [place] .3.749590 Medica l .8 [place] 2021-11-26 2021-11-26 Outpatient R FISH, [facility] [id number] Univers 15:00:00 15:00:00 ity of [facility] 2021-11-26 2021-11-26 Travel 1.2.840.1 1.2.887.782 [id number] [id number] Univers 00:00:00 00:00:00 60237.1.1 350.1.13.10 ity of 3.104.2.7 4.[place].3.698 [place] .3.662437 084.8 Medica l .8 [place] 2021-11-26 2021-11-26 Travel 1.2.840.1 1.2.593.006 7505 4215 Univers 00:00:00 00:00:00 66644.1.1 350.1.13.10 ity of 3.104.2.7 [place].3.698 [place] .3.523567 084.8 Medica l .8 [place] 2021-11-23 2021-11-23 Outpatient R ASH RAMIREZ [facility] [id number] Univers 14:00:00 14:00:00 ity of [facility] 2021-11-19 2021-11-19 [facility], 1.2.840.0 [id number] Univers 17:58:13 23:59:00 Encounter Rania 13116.1.1 it y of 3.104.2.7 [place] .3.626305 Medica l .[address] [place] [address] 2021-11-19 2021-11-19 Outpatient R LOGAN [facility] [id number] Univers 17:58:13 23:59:00 RANIA ity of [facility] 2021-11-19 2021-11-19 [facility] 1.2.784.015 [id number] Univers 17:58:13 23:59:00 Encounter [employer] 350.1.13.10 ity of [place] 4.2.7.2.686 Harley as OLIVIA?BLEA [id number] Wy aidee [place] [address] [facility] 2021-11-19 2021-11-19 [facility], 1.2.840.8 [id number] Univers 17:58:13 23:59:00 Encounter Rania 09384.1.1 it y of 3.104.2.7 [place] .3.526810 Medica l .8 [place] 2021-11-19 2021-11-19 Urgent Ebrahim, 1.2.840.2 [id number] Univers 17:20:00 18:04:46 Care Vania 20567.1.1 ity of 3.104.2.7 [place] .3.470606 Medica l .8 [place] 2021-11-19 2021-11-19 Urgent Ebrahim, [facility] 1.2.840.114 [id number] Univers 17:20:00 18:04:[address] [facility] 350.1.13.10 it y of [place] 4.2.7.2.686 Harley as OLIVIA?BLEA [id number] Wy dical [address] MEDICAL OFFICE BUILDING 2021-11-19 2021-11-19 Urgent Ebrahim, 1.2.840.3 [id number] Univers 17:20:00 18:04:46 Care Vania 18013.1.1 ity of 3.104.2.7 [place] .3.968669 Medica l .8 [place] 2021-11-19 2021-11-19 Travel 1.2.840.1 1.2.489.708 4204 [id number] Univers 00:00:00 00:00:00 19764.1.1 350.1.13.10 [place] 3.104.2[place] .3.577295 084.8 Medica l .8 [place] 2021-11-19 2021-11-19 Travel 1.2.840.1 1.2.924.575 8556 4086 Univers 00:00:00 00:00:00 45912.1.1 350.1.13.10 ity of 3.104.2.[place]3.698 [place] .3.055919 084.8 Med[place] l .8 [place] 2021-11-17 2021-11-17 Outpatient LUCINDA PHAN [facility] [id number] Univers 14:45:00 14:45:00 ity of [facility] 2021-11-17 2021-11-17 Outpatient ULCINDA PHAN [facility] [id number] Univers 14:45:00 14:45:00 ity of [facility] 2021-11-16 2021-11-16 Telephone Lucinda Wills 1.2.840.4 [id number] Univers 00:00:00 00:00:00 Cam 62460.1.1 ity of 3.104.2.7 [place] .3.413625 Medica l .8 [place] 2021-11-16 2021-11-16 Telephone Lucinda Wills 1.2.840.7 [id number] Univers 00:00:00 00:00:00 Cam 79794.1.1 ity of 3.104.2.7 [place] .3.995951 Medica l .8 [place] 2021-11-16 2021-11-16 Telephone Lucinda Wills 1.2.840.9 [id number] Univers 00:00:00 00:00:00 Cam 36527.1.1 ity of 3.104.2.7 [place] .3.838764 Medica l .8 [place] 2021-11-08 2021-11-08 Outpatient R SELF, [facility] [id number] Univers 11:15:00 11:40:32 JAMES eirckson o f [facility] 2021-11-08 2021-11-08 Travel 1.2.840.1 1.2.653.733 9531 9142 Univers 00:00:00 00:00:00 84717.1.1 350.1.13.10 ity of 3.104.2.[place].3.698 [place] .3.399768 084.8 Medica l .8 [place] 2021-11-08 2021-11-08 Travel 1.2.840.1 1.2.155.125 4475 9142 Univers 00:00:00 00:00:00 89245.1.1 350.1.13.10 ity of 3.104.2.7 [place].3.698 [place] .3.229414 084.8 Medica l .8 [place] 2021-11-08 2021-11-08 Travel 1.2.840.1 1.2.258.595 9772 9142 Univers 00:00:00 00:00:00 97547.1.1 350.1.13.10 ity of 3.104.2.[place].3.698 [place] .3.746047 084.8 [facility] l .8 [place] 2021-10-29 2021-10-29 Office Lucinda Wills 1.2.840.4 [id number] [id number] Univers 13:00:00 13:28:21 Visit Cam 82727.1.1 ity of 3.104.2.7 [place] .3.962174 Medica l .8 [place] 2021-10-29 2021-10-29 Office Lucinda Wills 1.2.840.3 [id number] 930 [id number] Univers 13:00:00 13:28:21 Visit Cam 91277.1.1 ity of 3.104.2.7 [place] .3.452133 Medica l .8 [place] 2021-10-29 2021-10-29 Outpatient R LUCINDA WILLS [facility] [id number] Univers 13:00:00 13:28:21 ity of [facility] 2021-10-29 2021-10-29 Office Lucinda Wills 1.2.840.8 [id number] [id number] Univers 13:00:00 13:28:21 Visit Cam 22334.1.1 ity of 3.104.2.7 [place] .3.694820 Medica l .8 [place] 2021-10-29 2021-10-29 Outpatient R LUCINDA WILLS [facility] [id number] Univers 13:00:00 13:00:00 ity of [facility] 2021-10-29 2021-10-29 Outpatient R LUCINDA WILLS [facility] [id number] Univers 13:00:00 13:00:00 ity of [facility] 2021-10-29 2021-10-29 Travel 1.2.840.1 1.2.698.778 0348 6547 Univers 00:00:00 00:00:00 16349.1.1 350.1.13.10 ity of 3.104.2.[place].3.698 [place] .3.401086 084.8 Medica l .8 [place] 2021-10-29 2021-10-29 Travel 1.2.840.1 1.2.371.069 2636 6547 [facility] 00:00:00 00:00:00 06248.1.1 350.1.13.10 ity of 3.104.2.7 [place].3.698 [place] .3.510772 084.8 Medica l .8 [place] 2021-10-29 2021-10-29 Travel 1.2.840.1 1.2.756.904 4791 6547 [facility] 00:00:00 00:00:00 01135.1.1 350.1.13.10 ity of 3.104.2.7 [place]7.3.698 [place] .3.993361 084.8 Medica l .8 [place] 2021-10-27 2021-10-27 Outpatient R SHIVANI VAUGHN [facility] [id number] Univers 14:30:00 15:05:35 SHIVANI VAUGHN [facility] 2021-10-27 2021-10-27 [facility] [id number] Univers 14:30:00 14:30:00 SHIVANI VAUGHN [facility] 2021-10-27 2021-10-27 Household Assistant Pat Patel 1.2.840.1 [id number] [facility] 12:30:00 12:45:00 Visit Pcp-Lab 02934.1.1 ity of 3.104.2.7 [place] .3.423313 Medica l .8 [place] 2021-10-27 2021-10-27 Household Assistant Pat Patel 1.2.840.1 [id number] [facility] 12:30:00 12:45:00 Visit Pcp-Lab 81859.1.1 ity of 3.104.2.7 [place] .3.636280 Medica l .8 [place] 2021-10-27 2021-10-27 Household Assistant Pat Patel 1.2.840.1 [id number] [facility] 12:30:00 12:45:00 Visit Pcp-Lab 77575.1.1 ity of 3.104.2.7 [place] .3.986842 Medica l .8 [place] 2021-10-27 2021-10-27 Household Assistant Pat Patel 1.2.840.1 [id number] [facility] 12:30:00 12:45:00 Visit Pcp-Lab 66194.1.1 ity of 3.104.2.7 [place] .3.836129 Med[facility] l .8 [place] 2021-10-27 2021-10-27 Travel 1.2.840.1 1.2.940.487 3246 7104 [facility] 00:00:00 00:00:00 78087.1.1 350.1.13.10 ity of 3.104.2.[place]7.3.698 [place] .3.993421 084.8 Medica l .8 [place] 2021-10-27 2021-10-27 Travel 1.2.840.1 1.2.282.589 2333 7104 [facility] 00:00:00 00:00:00 20647.1.1 350.1.13.10 ity of 3.104.2.7 [place]7.3.698 [place] .3.303924 084.8 Medica l .8 [place] 2021-10-27 2021-10-27 Travel 1.2.840.1 1.2.085.495 4002 7104 [facility] 00:00:00 00:00:00 53750.1.1 350.1.13.10 ity of 3.104.2.7 [place]7.3.698 [place] .3.022801 084.8 [facility] l .8 [place] 2021-10-27 2021-10-27 Travel 1.2.840.1 1.2.977.537 0907 7104 [facility] 00:00:00 00:00:00 78455.1.1 350.1.13.10 ity of 3.104.2.7 4.[place]7.3.698 [place] .3.122796 084.8 [facility] l .8 [place] 2021-10-06 2021-10-06 Outpatient R ALTAF VAUGHNBERLY [facility] [id number] Univers 15:15:00 16:31:02 [facility] 2021-10-06 Travel 1.2.840.1 1.2.840.596 6574 3199 Univers 00:00:00 00:00:00 04053.1.1 350.1.13.10 ity of 3.104.2.7 4.2.7.3.698 [place] .3.606023 084.8 [facility] l .8 [place] 2021-10-06 2021-10-06 Travel 1.2.840.1 1.2.022.844 7396 3199 Univers 00:00:00 00:00:00 27867.1.1 350.1.13.10 ity of 3.104.2.7 4.[place].7.3.698 [place] .3.655293 084.8 [facility] l .8 [place] 2021-10-06 2021-10-06 Travel 1.2.840.1 1.2.593.111 2602 3199 [facility] 00:00:00 00:00:00 03929.1.1 350.1.13.10 ity of 3.104.2.7 [place]7.3.698 [place] .3.568455 084.8 [facility] l .8 [place] 2021-09-13 2021-09-13 Outpatient R REYNALDO [facility] [id number] Univers 11:00:00 11:00:00 JAMES erickson o f [facility] 2021-09-02 2021-09-02 Outpatient Escobar GALARZA [facility] [id number] Univers 13:00:00 13:00:00 HONORIO erickson [facility] 2021-09-02 2021-09-02 Outpatient R GEOVANNI [facility] [id number] Univers 13:00:00 13:00:00 HONORIO erickson [facility] 2021-09-02 2021-09-02 Travel 1.2.840.1 1.2.245.873 7988 3611 Univers 00:00:00 00:00:00 66726.1.1 350.1.13.10 ity of 3.104.2.7 [place]7.3.698 [place] .3.655996 084.8 [facility] l .8 [place] 2021-09-02 2021-09-02 Travel 1.2.840.1 1.2.265.470 1062 3611 Univers 00:00:00 00:00:00 58733.1.1 350.1.13.10 ity of 3.104.2.7 4.[place].7.3.698 [place] .3.461536 084.8 [facility] l .8 [place] 2021-09-02 2021-09-02 Travel 1.2.840.1 1.2.568.636 2170 3611 Univers 00:00:00 00:00:00 71103.1.1 350.1.13.10 ity of 3.104.2.7 4.[place].7.3.698 [place] .3.872036 084.8 Med[facility] l .8 [place] 2021-08-26 2021-08-26 [facility] [id number] Univers 12:59:32 23:59:00 BOUCHRA ity of [facility] 2021-08-26 2021-08-26 [facility], 1.2.840.5 [id number] Univers 12:59:32 23:59:00 Encounter Bouchra 61649.1.1 it y of 3.104.2.7 [place] .3.248992 Medica l .8 [place] 2021-08-26 2021-08-26 [facility], 1.2.840.1 [id number] 91 [id number] Univers 12:59:32 23:59:00 Encounter Bouchra 66033.1.1 it y of 3.104.2.7 [place] .3.479960 Medica l .8 [place] 2021-08-26 2021-08-26 [facility], 1.2.840.1 [id number] 91 [id number] Univers 12:59:32 23:59:00 Encounter Bouchra 93063.1.1 it y of 3.104.2.7 [place] .3.166602 Med[facility] l .8 [place] 2021-08-26 2021-08-26 [facility] [id number] Univers 13:00:00 13:47:55 BOUCHRA ity of [facility] 2021-08-26 2021-08-26 Office [facility], 1.2.840.2 [id number] [id number] Univers 13:00:00 13:47:55 Visit Bouchra 36350.1.1 ity of 3.104.2.7 [place] .3.011539 Medica l .8 [place] 2021-08-26 2021-08-26 [facility] [id number] Univers 13:00:00 13:47:55 BOUCHRA ity of [facility] 2021-08-26 2021-08-26 Office [facility], 1.2.840.3 [id number] [id number] Univers 13:00:00 13:47:55 Visit Bouchra 58742.1.1 ity of 3.104.2.7 [place] .3.994756 Medica l .8 [place] 2021-08-26 2021-08-26 Travel 1.2.840.1 1.2.865.031 8230 7347 Univers 00:00:00 00:00:00 86330.1.1 350.1.13.10 ity of 3.104.2.7 4.[place].7.3.698 [place] .3.390624 084.8 Medica l .8 [place] 2021-08-26 2021-08-26 Travel 1.2.840.1 1.2.294.921 0063 7347 Univers 00:00:00 00:00:00 65565.1.1 350.1.13.10 ity of 3.104.2.7 4.[place].7.3.698 [place] .3.870180 084.8 Medica l .8 [place] 2021-08-26 2021-08-26 Travel 1.2.840.1 1.2.773.257 6987 7347 Univers 00:00:00 00:00:00 49130.1.1 350.1.13.10 ity of 3.104.2.7 4.[place].7.3.698 [place] .3.651683 084.8 Med[facility] l .8 [place] 2021-08-03 2021-08-03 Household Assistant Sharita [facility] Main [facility] 1.2.8 40.114 [id number] Univers 17:15:00 17:30:00 Visit Shivani Vaughn [place] 350.1.13.10 ity of [place] 4.2.7.2.686 Michelle SCHULTZESSIO [id number] Wy dical NAL [address] [facility] 2021-08-03 2021-08-03 Household Assistant Shivani Vaughn 1.2.840.3 [id number] Univers 17:15:00 17:30:00 Visit Sharita [facility] Main 14133.1.1 ity of 3.104.2.7 [place] .3.828903 Medica l .8 [place] 2021-08-03 2021-08-03 Household Assistant Shivani Vaughn 1.2.840.5 [id number] Univers 17:15:00 17:30:00 Visit Sharita [facility] Main 45058.1.1 ity of 3.104.2.7 [place] .3.488203 Medica l .8 [place] 2021-08-03 2021-08-03 Outpatient R SHIVANI VAUGHN [facility] [id number] Univers 17:15:00 17:15:00 SHIVANI VAUGHN ity of [facility] 2021-08-02 2021-08-02 Outpatient R REYNALDO [facility] [id number] Univers 10:15:00 11:07:50 JAMES ity o f [facility] 2021-08-02 2021-08-02 Travel 1.2.840.1 1.2.413.717 5362 6890 Univers 00:00:00 00:00:00 58203.1.1 350.1.13.10 ity of 3.104.2.7 4.[place]7.3.698 [place] .3.950672 084.8 Medica l .8 [place] 2021-08-02 2021-08-02 Travel 1.2.840.1 1.2.933.778 4551 6890 Univers 00:00:00 00:00:00 80309.1.1 350.1.13.10 ity of 3.104.2.7 4.2.7.3.698 [place] .3.409204 084.8 Medica l .8 [facility] 2021-08-02 2021-08-02 Travel 1.2.840.1 1.2.247.178 8669 6890 Univers 00:00:00 00:00:00 54899.1.1 350.1.13.10 ity of 3.104.2.7 4.2.7.3.698 [place] .3.370068 084.8 Medica l .8 [place] 2021-07-29 2021-07-29 [facility] [id number] Univers 13:26:56 23:59:00 BOUCHRA ity of [facility] 2021-07-29 2021-07-29 [facility], 1.2.840.8 [id number] Univers 13:26:56 23:59:00 Encounter Bouchra 95253.1.1 it y of 3.104.2.7 [place] .3.075492 Medica l .8 [place] 2021-07-29 2021-07-29 [facility], 1.2.840.5 [id number] Univers 13:26:56 23:59:00 Encounter Bouchra 97742.1.1 it y of 3.104.2.7 [place] .3.972133 Medica l .8 [place] 2021-07-29 2021-07-29 [facility], 1.2.840.3 [id number] 90 [id number] Univers 13:26:56 23:59:00 Encounter Bouchra 09334.1.1 it y of 3.104.2.7 [place] .3.744806 Medica l .8 [place] 2021-07-29 2021-07-29 [facility] 1.2.059.352 7963 4919 Univers 13:20:00 15:16:49 Visit Bouchra ARELLANO 350.1.13.10 it y of CARE 4.2.7.2.686 Michelle VALDES [id number] Wy dical 198 [place] 2021-07-29 2021-07-29 Outpatient R ARNALDO [facility] [id number] Univers 13:20:00 15:16:49 BOUCHRA ity of [facility] 2021-07-29 2021-07-29 Office Arnaldo, 1.2.840.7 [id number] [id number] Univers 13:20:00 15:16:49 Visit Bouchra 96620.1.1 ity of 3.104.2.7 [place] .3.373591 Medica l .8 [place] 2021-07-29 2021-07-29 Office Arnaldo, 1.2.840.4 [id number] 906 [id number] Univers 13:20:00 15:16:49 Visit Bouchra 40803.1.1 ity of 3.104.2.7 [place] .3.003992 Medica l .8 [place] 2021-07-29 2021-07-29 Letter Arnaldo, 1.2.840.6 [id number] 908 [id number] Univers 00:00:00 00:00:00 (Out) Bouchra 08876.1.1 ity of 3.104.2.7 [place] .3.831860 Medica l .8 [place] 2021-07-29 2021-07-29 Travel 1.2.840.1 1.2.721.032 4079 9351 Univers 00:00:00 00:00:00 88293.1.1 350.1.13.10 ity of 3.104.2.7 4.2.7.3.698 [place] .3.525251 084.8 Medica l .8 [place] 2021-07-29 2021-07-29 Letter Arnaldo, 1.2.840.8 [id number] 908 73601 Univers 00:00:00 00:00:00 (Out) Bouchra 53485.1.1 ity of 3.104.2.7 [place] .3.792730 Medica l .8 [facility] 2021-07-29 2021-07-29 Travel 1.2.840.1 1.2.563.945 8466 9351 Univers 00:00:00 00:00:00 33335.1.1 350.1.13.10 ity of 3.104.2.7 4.2.7.3.698 [place] .3.805024 084.8 Medica l .8 [place] 2021-07-29 2021-07-29 Letter Arnaldo, 1.2.840.0 [id number] 908 10056 Univers 00:00:00 00:00:00 (Out) Bouchra 33749.1.1 ity of 3.104.2.7 [place] .3.151642 Medica l .8 [place] 2021-07-29 2021-07-29 Travel 1.2.840.1 1.2.298.020 4842 9351 Univers 00:00:00 00:00:00 36943.1.1 350.1.13.10 ity of 3.104.2.7 4.2.7.3.698 [place] .3.204984 084.8 Medica l .8 [place] 2021-07-22 2021-07-22 [facility] 1.2.840.114 9 [id number] Univers 14:00:00 23:59:00 Encounter , Ryan COLMENARES 350.1.13.10 [facility] 4.2.7.2.686 [facility] [id number] [facility] 801 [place] 2021-07-22 2021-07-22 [facility] 1.2.840.5 [id number] Univers 14:00:00 23:59:00 Encounter , Ryan 47734.1.1 it y of 3.104.2.7 [place] .3.743339 Medica l .8 [place] 2021-07-22 2021-07-22 [facility] 1.2.840.9 [id number] Univers 14:00:00 23:59:00 Encounter , Ryan 42882.1.1 it y of 3.104.2.7 [place] .3.873118 Medica l .8 [facility] 2021-07-22 2021-07-22 [facility] 1.2.840.5 [id number] Univers 14:00:00 23:59:00 Encounter , Ryan 49798.1.1 it y of 3.104.2.7 [place] .3.529073 Medica l .8 [place] 2021-07-22 2021-07-22 [facility] 1.2.840.114 9 [id number] Univers 10:46:11 13:59:00 Encounter , Ryan SPECIALTY 350.1.13.10 ity of CARE 4.2.7.2.686 [facility] AT [id number] Wy aidee CALHOUN 809 [facility] 2021-07-22 2021-07-22 [facility] 1.2.840.1 [id number] Univers 10:46:11 13:59:00 Encounter , Ryan 12721.1.1 it y of 3.104.2.7 [place] .3.052656 Medica l .8 [place] 2021-07-22 2021-07-22 [facility] 1.2.840.2 [id number] Univers 10:46:11 13:59:00 Encounter , Ryan 12492.1.1 it y of 3.104.2.7 [place] .3.821552 Medica l .8 [place] 2021-07-22 2021-07-22 [facility] 1.2.840.1 [id number] Univers 10:46:11 13:59:00 Encounter , Ryan 41318.1.1 it y of 3.104.2.7 [place] .3.797126 Medica l .8 [place] 2021-07-22 2021-07-22 Outpatient Escobar GALARZA [facility] [id number] Univers 13:00:00 13:45:02 HONORIO ity of [facility] 2021-07-22 2021-07-22 Outpatient Escobar GALARZA [facility] [id number] Univers 13:00:00 13:45:02 HONORIO ity [facility] 2021-07-22 2021-07-22 Outpatient R GEOVANNI, [facility] [id number] Univers 13:00:00 13:00:00 HONORIO y [facility] 2021-07-22 2021-07-22 Office Alijanipour 1.2.840.8 [id number] Univers 10:15:00 11:55:28 Visit , Ryan 57228.1.1 ity of 3.104.2.7 [place] .3.850374 Medica l .8 [place] 2021-07-22 2021-07-22 Outpatient R ALIJANIPOUR [facility] [id number] Univers 10:15:00 11:55:28 , RYAN ity [facility] 2021-07-22 2021-07-22 Office Alijanipour 1.2.840.3 [id number] Univers 10:15:00 11:55:28 Visit , Ryan 88812.1.1 ity of 3.104.2.7 [place] .3.411879 Medica l .8 [place] 2021-07-22 2021-07-22 Office Alijanipour 1.2.840.8 [id number] Univers 10:15:00 11:55:28 Visit , Ryan 73797.1.1 ity of 3.104.2.7 [place] .3.562300 Medica l .8 [place] 2021-07-22 2021-07-22 Outpatient R ALIJANIPOUR [facility] [id number] Univers 10:46:11 10:46:11 , RYAN ity [facility] 2021-07-22 2021-07-22 Outpatient R ALIJANIPOUR [facility] [id number] Univers 10:15:00 10:15:00 , RYAN ity [facility] 2021-07-22 2021-07-22 Outpatient R ALIJANIPOUR [facility] [id number] Univers 10:15:00 10:15:00 , RYAN ity [facility] 2021-07-22 2021-07-22 Abstract Alijanipour 1.2.840.9 [id number] Univers 00:00:00 00:00:00 , Ryan 91413.1.1 ity of 3.104.2.7 [place] .3.190580 Medica l .8 [facility] 2021-07-22 2021-07-22 Travel 1.2.840.1 1.2.768.538 6236 8425 Univers 00:00:00 00:00:00 86565.1.1 350.1.13.10 ity of 3.104.2.7 4.2.7.3.698 [place] .3.607099 084.8 Medica l .8 [facility] 2021-07-22 2021-07-22 Letter Alijanipour 1.2.840.6 [id number] Univers 00:00:00 00:00:00 (Out) , Ryan 65443.1.1 ity of 3.104.2.7 [place] .3.918328 Medica l .8 [place] 2021-07-22 2021-07-22 Letter Alijanipour 1.2.840.7 [id number] Univers 00:00:00 00:00:00 (Out) , Ryan 12277.1.1 ity of 3.104.2.7 [place] .3.219375 Medica l .8 [place] 2021-07-22 2021-07-22 Travel 1.2.840.1 1.2.004.548 0872 8425 Univers 00:00:00 00:00:00 18265.1.1 350.1.13.10 ity of 3.104.2.7 4.2.7.3.698 [place] .3.306246 084.8 Medica l .8 [facility] 2021-07-22 2021-07-22 Abstract Alijanipour 1.2.840.7 [id number] Univers 00:00:00 00:00:00 , Ryan 11005.1.1 ity of 3.104.2.7 [place] .3.362867 Medica l .8 [facility] 2021-07-22 2021-07-22 Letter Alijanipour 1.2.840.6 [id number] Univers 00:00:00 00:00:00 (Out) , Ryan 20736.1.1 ity of 3.104.2.7 [place] .3.796665 Medica l .8 [facility] 2021-07-22 2021-07-22 Travel 1.2.840.1 1.2.658.158 9832 8425 Univers 00:00:00 00:00:00 64195.1.1 350.1.13.10 ity of 3.104.2.7 4.2.7.3.698 [place] .3.569280 084.8 Medica l .8 [facility] 2021-07-22 2021-07-22 Abstract Alijanipour 1.2.840.4 [id number] Univers 00:00:00 00:00:00 , Ryan 22790.1.1 ity of 3.104.2.7 [place] .3.317323 Medica l .8 [facility] 2021-07-22 2021-07-22 Letter Alijanipour 1.2.840.9 [id number] Univers 00:00:00 00:00:00 (Out) , Ryan 59712.1.1 ity of 3.104.2.7 [place] .3.291038 Medica l .8 [facility] 2021-07-22 2021-07-22 Travel 1.2.840.1 1.2.031.080 8166 8425 Univers 00:00:00 00:00:00 08764.1.1 350.1.13.10 ity of 3.104.2.7 4.2.7.3.698 [place] .3.556579 084.8 Medica l .8 [facility] 2021-07-22 2021-07-22 Abstract Alijanipour 1.2.840.9 [id number] Univers 00:00:00 00:00:00 , Ryan 69765.1.1 ity of 3.104.2.7 [place] .3.971956 Medica l .8 [place] 2021-07-21 2021-07-21 SHIVANI Hamm [facility] [id number] Univers 14:30:00 15:30:35 SHIVANI VAUGHN [facility] 2021-07-21 2021-07-21 Outpatient R ALTAF VAUGHNBERLY [facility] [id number] Univers 14:30:00 15:30:35 SHIVANI VAUGHN [facility] 2021-07-21 2021-07-21 Outpatient R ALTAF VAUGHNBERLY [facility] [id number] Univers 14:30:00 14:30:00 SHIVANI VAUGHN [facility] 2021-07-15 2021-07-15 Orders Doctor 1.2.840.4 [id number] Univers 00:00:00 00:00:00 Only Unassigned, 22410.1.1 ity of [place] 3.104.2.7 [place] .3.900632 Medica l .8 [place] 2021-07-15 2021-07-15 Orders Doctor 1.2.840.2 [id number] Univers 00:00:00 00:00:00 Only Unassigned, 66916.1.1 ity of [place] 3.104.2.7 [place] .3.841631 Medica l .8 [place] 2021-07-15 2021-07-15 Orders Doctor 1.2.840.0 [id number] Univers 00:00:00 00:00:00 Only Unassigned, 86091.1.1 ity of [place] 3.104.2.7 [place] .3.862027 Medica l .8 [place] 2021-07-15 2021-07-15 Orders Doctor 1.2.840.2 [id number] Univers 00:00:00 00:00:00 Only Unassigned, 51810.1.1 ity of [place] 3.104.2.7 [place] .3.615956 Medica l .8 [place] 2021-07-09 2021-07-09 Emergency [facility] [id number] [facility] 12:46:00 12:46:00 14 2021-07-08 2021-07-08 Outpatient R GEOVANNI [facility] [id number] Univers 13:00:00 13:00:00 HONORIO ity of [facility] 2021-07-08 2021-07-08 Outpatient Escobar GALARZA, [facility] [id number] Univers 13:00:00 13:00:00 HONORIO ity of [facility] 2021-06-30 2021-06-30 Telephone Nazeer, 1.2.840.9 [id number] Univers 00:00:00 00:00:00 Jerry 55086.1.1 ity of 3.104.2.7 [place] .3.732570 Medica l .8 [place] 2021-06-30 2021-06-30 Telephone Nazeer, 1.2.840.1 [id number] Univers 00:00:00 00:00:00 Jerry 50213.1.1 ity of 3.104.2.7 [place] .3.083046 Medica l .8 [place] 2021-06-30 2021-06-30 Telephone Nazeer, 1.2.840.1 [id number] Univers 00:00:00 00:00:00 Jerry 94442.1.1 ity of 3.104.2.7 [place] .3.999176 Medica l .8 [place] 2021-06-30 2021-06-30 Telephone Nazeer, 1.2.840.4 [id number] Univers 00:00:00 00:00:00 Jerry 39048.1.1 ity of 3.104.2.7 [place] .3.323449 Medica l .8 [place] 2021-06-24 2021-06-24 Imm/Inj Nurse, Pcp Immunization [facility] 1. 2.840.114 [id number] Univers 16:30:00 16:40:00 Visit Gideon Montez PRIMARY 350.1.13. 10 ity of CARE 4.2.7.2.686 Michelle VALDES [id number] Wy dical 421 [place] 2021-06-24 2021-06-24 Imm/Inj Gideon Montez 1.2.840.6 [id number] Univers 16:30:00 16:40:00 Visit Nurse, Pcp Immunization 48858.1.1 ity of 3.104.2.7 [place] .3.657614 Medica l .8 [place] 2021-06-24 2021-06-24 Imm/Inj Gideon Montez 1.2.840.3 [id number] Univers 16:30:00 16:40:00 Visit Nurse, Pcp Immunization 08962.1.1 ity of 3.104.2.7 [place] .3.242459 Medica l .8 [place] 2021-06-24 2021-06-24 Imm/Inj Gideon Montez 1.2.840.0 [id number] Univers 16:30:00 16:40:00 Visit Nurse, Pcp Immunization 50925.1.1 ity of 3.104.2.7 [place] .3.431940 Medica l .8 [place] 2021-06-24 2021-06-24 Imm/Inj Gideon Montez 1.2.840.4 [id number] Univers 16:30:00 16:40:00 Visit Nurse, Pcp Immunization 26090.1.1 ity of 3.104.2.7 [place] .3.946152 Medica l .8 [place] 2021-06-24 2021-06-24 Outpatient R TC [facility] [id number] Univers 16:30:00 16:30:00 GIDEON ity of [facility] 2021-06-24 2021-06-24 Household Assistant Pcp-Lab [facility] 1.2.840.114 [id number] Univers 16:15:00 16:30:00 Visit Bethel Isaacs PRIMARY 350.1.13.10 ity of CARE 4.2.7.2.686 Michelle VALDES [id number] Wy dical 366 [place] 2021-06-24 2021-06-24 Household Assistant Bethel Isaacs 1.2.840.0 [id number] Univers 16:15:00 16:30:00 Visit Pcp-Lab 75332.1.1 ity of 3.104.2.7 [place] .3.781034 Medica l .8 [place] 2021-06-24 2021-06-24 Household Assistant Bethel Isaacs 1.2.840.2 [id number] Univers 16:15:00 16:30:00 Visit Pcp-Lab 07837.1.1 ity of 3.104.2.7 [place] .3.633533 Medica l .8 [place] 2021-06-24 2021-06-24 Household Assistant Bethel Isaacs 1.2.840.2 [id number] Univers 16:15:00 16:30:00 Visit Pcp-Lab 97740.1.1 ity of 3.104.2.7 [place] .3.287825 Medica l .8 [place] 2021-06-24 2021-06-24 Household Assistant Bethel Isaacs 1.2.840.5 [id number] Univers 16:15:00 16:30:00 Visit Pcp-Lab 19798.1.1 ity of 3.104.2.7 [place] .3.945850 Medica l .8 [place] 2021-06-24 2021-06-24 [facility] [id number] Univers 16:15:00 16:15:00 BETHEL erickson [facility] 2021-06-24 2021-06-24 [facility] [id number] Univers 14:40:00 16:08:00 BETHEL erickson [facility] 2021-06-24 2021-06-24 Office Bethel Isaacs 1.2.840.5 [id number] Univers 14:40:00 16:08:00 Visit Health, Tg Hormone 68833.1.1 ity of 3.104.2.7 [place] .3.263811 Medica l .8 [place] 2021-06-24 2021-06-24 [facility] [id number] Univers 14:40:00 16:08:00 BETHEL erickson [facility] 2021-06-24 2021-06-24 Office Bethel Isaacs 1.2.840.9 [id number] Univers 14:40:00 16:08:00 Visit Health, Tg Hormone 43441.1.1 ity of 3.104.2.7 [place] .3.266283 Medica l .8 [place] 2021-06-24 2021-06-24 Office Bethel Isaacs 1.2.840.9 [id number] Univers 14:40:00 16:08:00 Visit Health, Tg Hormone 02062.1.1 ity of 3.104.2.7 [place] .3.317426 Medica l .8 [place] 2021-06-24 2021-06-24 Office Bethel Isaacs 1.2.840.2 [id number] Univers 14:40:00 16:08:00 Visit Health, Tg Hormone 42766.1.1 ity of 3.104.2.7 [place] .3.571529 Medica l .8 [place] 2021-06-24 2021-06-24 Outpatient R KOURTNEY, [facility] [id number] Univers 14:40:00 14:40:00 BETHEL ity of [facility] 2021-06-24 2021-06-24 Travel 1.2.840.1 1.2.759.358 2232 0448 Univers 00:00:00 00:00:00 54836.1.1 350.1.13.10 ity of 3.104.2.7 [place].698 [place].35[place] 084.8 Medica l .8 [place] 2021-06-24 2021-06-24 Travel 1.2.840.1 1.2.657.300 8201 0448 Univers 00:00:00 00:00:00 77782.1.1 350.1.13.10 ity of 3.104.2.7 [place].3.698 [place]3.0612[place] 084.8 Medica l .8 [place] 2021-06-24 2021-06-24 Travel 1.2.840.1 1.2.220.120 1148 0448 Univers 00:00:00 00:00:00 47636.1.1 350.1.13.10 ity of 3.104.2.7 [place].3.698 [place] .3.886250 084.8 Medica l .8 [place] 2021-06-24 2021-06-24 Travel 1.2.840.1 1.2.133.318 0817 0448 Univers 00:00:00 00:00:00 25600.1.1 350.1.13.10 ity of 3.104.2.7 [place].3.698 [place]3.4212[place] 084.8 Medica l .8 [place] 2021-06-17 2021-06-17 Household Assistant Self, James 1.2.840.6 [id number] 2355 [id number] Univers 16:00:00 16:15:00 Visit Pcp-Lab 94797.1.1 ity of 3.104.2.7 [place] .3.374052 Medica l .8 [place] 2021-06-17 2021-06-17 Household Assistant Self, James 1.2.840.3 [id number] 5309 [id number] Univers 16:00:00 16:15:00 Visit Pcp-Lab 16059.1.1 ity of 3.104.2.7 [place] .3.367928 Medica l .8 [place] 2021-06-17 2021-06-17 Household Assistant Self, James 1.2.840.9 [id number] [id number] Univers 16:00:00 16:15:00 Visit Pcp-Lab 30096.1.1 ity of 3.104.2.7 [place] .3.276690 Medica l .8 [place] 2021-06-17 2021-06-17 Household Assistant Self, James 1.2.840.2 [id number] 4003 [id number] Univers 16:00:00 16:15:00 Visit Pcp-Lab 53655.1.1 ity of 3.104.2.7 [place] .3.335714 Medica l .8 [place] 2021-06-17 2021-06-17 Household Assistant Self, James 1.2.840.7 [id number] 1125 [id number] Univers 16:00:00 16:15:00 Visit Pcp-Lab 56621.1.1 ity of 3.104.2.7 [place] .3.362077 Medica l .8 [place] 2021-06-17 2021-06-17 Outpatient R GEOVANNI [facility] [id number] Univers 14:00:00 14:00:00 HONORIO ity [facility] 2021-06-17 2021-06-17 Outpatient R GEOVANNI [facility] [id number] Univers 14:00:00 14:00:00 DENVER ity [facility] 2021-06-17 2021-06-17 Travel 1.2.840.1 1.2.428.743 4237 3149 [facility] 00:00:00 00:00:00 63144.1.1 350.1.13.10 ity of 3.104.2.7 [place].3.698 [place]3.357391 084.8 Medica l .8 [place] 2021-06-17 2021-06-17 Travel 1.2.840.1 1.2.266.360 5536 3149 Univers 00:00:00 00:00:00 97833.1.1 350.1.13.10 ity of 3.104.2.7 [place]7.3.698 [place]3.6911[place] 084.8 Medica l .8 [place] 2021-06-17 2021-06-17 Travel 1.2.840.1 1.2.220.373 5169 3149 Univers 00:00:00 00:00:00 50201.1.1 350.1.13.10 ity of 3.104.2.7 [place]7.3.698 [place] .3.99[place] 084.8 Medica l .8 [place] 2021-06-17 2021-06-17 Travel 1.2.840.1 1.2.511.292 7948 3149 Univers 00:00:00 00:00:00 97227.1.1 350.1.13.10 ity of 3.104.2.7 [place]7.3.698 [place]3.9817[place] 084.8 Medica l .8 [place] 2021-06-17 2021-06-17 Travel 1.2.840.1 1.2.310.018 3838 3149 Univers 00:00:00 00:00:00 40985.1.1 350.1.13.10 ity of 3.104.2.7 [place].3.698 [place]3.121762 084.8 Medica l .8 [facility] 2021-06-14 2021-06-14 Outpatient R REYNALDO, [facility] [id number] Univers 11:00:00 12:13:42 JAMES ity o f [facility] 2021-06-14 2021-06-14 Travel 1.2.840.1 1.2.691.921 1418 7514 Univers 00:00:00 00:00:00 49209.1.1 350.1.13.10 ity of 3.104.2.7 4.[place].7.3.698 [place]3.167109 084.8 Medica l .8 [facility] 2021-06-14 2021-06-14 Travel 1.2.840.1 1.2.660.711 9524 7514 [facility] 00:00:00 00:00:00 48337.1.1 350.1.13.10 ity of 3.104.2.7 [place].7.3.698 [place]3.516744 084.8 Medica l .8 [facility] 2021-06-14 2021-06-14 Travel 1.2.840.1 1.2.962.374 7466 7514 Univers 00:00:00 00:00:00 44067.1.1 350.1.13.10 ity of 3.104.2.7 4.[place].7.3.698 [place] .3.984390 084.8 Medica l .8 [facility] 2021-06-14 2021-06-14 Travel 1.2.840.1 1.2.801.265 2544 7514 Univers 00:00:00 00:00:00 23489.1.1 350.1.13.10 ity of 3.104.2.7 [place].7.3.698 [place] .3.527654 084.8 Medica l .8 [place] 2021-06-10 2021-06-10 Patient Burton, 1.2.840.4 [id number] 075 Univers 00:00:00 00:00:00 Outreach Britt Rm 62669.1.1 ity of 3.104.2.7 [place] .3.767077 Medica l .8 [place] 2021-06-10 2021-06-10 Patient Burton, 1.2.840.6 [id number] 075 Univers 00:00:00 00:00:00 Outreach Britt J 06125.1.1 ity of 3.104.2.7 [place] .3.255736 Medica l .8 [place] 2021-06-10 2021-06-10 Patient Burton, 1.2.840.1 [id number] 075 Univers 00:00:00 00:00:00 Outreach Britt J 91332.1.1 ity of 3.104.2.7 [place] .3.815970 Medica l .8 [place] 2021-06-10 2021-06-10 Patient Burton, 1.2.840.5 [id number] 075 Univers 00:00:00 00:00:00 Outreach Britt J 10805.1.1 ity of 3.104.2.7 [place] .3.601519 Medica l .8 [place] 2021-06-03 2021-06-03 Outpatient Escobar GALARZA [facility] [id number] Univers 14:00:00 14:22:42 HONORIO ity of [facility] 2021-06-03 2021-06-03 Travel 1.2.840.1 1.2.476.629 1495 4897 Univers 00:00:00 00:00:00 53859.1.1 350.1.13.10 ity of 3.104.2.7 [place].7.3.698 [place]3.410737 084.8 Medica l .8 [place] 2021-06-03 2021-06-03 Travel 1.2.840.1 1.2.415.119 6824 4897 Univers 00:00:00 00:00:00 82259.1.1 350.1.13.10 ity of 3.104.2.7 [place].7.3.698 [place]3.219514 084.8 Medica l .8 Branch 2021-06-03 2021-06-03 Travel 1.2.840.1 1.2.501.803 8683 4897 Univers 00:00:00 00:00:00 29049.1.1 350.1.13.10 ity of 3.104.2.7 [place].7.3.698 [place]3.891296 084.8 Medica l .8 [facility] 2021-06-03 2021-06-03 Travel 1.2.840.1 1.2.466.242 0681 4897 Univers 00:00:00 00:00:00 76835.1.1 350.1.13.10 ity of 3.104.2.7 [place].7.3.698 [place]3.955842 084.8 Medica l .8 [facility] 2021-05-26 2021-05-26 [facility], 1.2.840.2 [id number] 8943 9138 Univers 09:40:00 23:59:00 Encounter Burke De La Cruz 26492.1.1 ity of 3.104.2.7 [place] .3.104131 Medica l .8 Branch 2021-05-26 2021-05-26 [facility], 1.2.840.8 [id number] 8943 9138 Univers 09:40:00 23:59:00 Encounter Burke De La Cruz 70513.1.1 ity of 3.104.2.7 [place] .3.218293 Medica l .8 Branch 2021-05-26 2021-05-26 [facility], 1.2.840.7 [id number] 9138 Univers 09:40:00 23:59:00 Encounter Burke De La Cruz 52992.1.1 ity of 3.104.2.7 [place] .3.687326 Medica l .8 Branch 2021-05-26 2021-05-26 Outpatient R ASHLEE, [facility] NUT [id number] Univers 00:00:00 00:00:00 BURKE itadrian [facility] 2021-05-25 2021-05-25 Emergency [facility] [id number] [facility] 23:19:00 23:19:00 94 2021-05-24 2021-05-24 Outpatient R SELF, [facility] [id number] Univers 11:00:00 11:31:18 JAMES anderson [facility] 2021-05-24 2021-05-24 Travel 1.2.840.1 1.2.212.349 8141 1167 Univers 00:00:00 00:00:00 39610.1.1 350.1.13.10 ity of 3.104.2.7 [place]7.3.698 [place]3.023784 084.8 Medica l .8 [place] 2021-05-24 2021-05-24 Travel 1.2.840.1 1.2.109.305 7888 1167 Univers 00:00:00 00:00:00 14234.1.1 350.1.13.10 ity of 3.104.2.7 4.2.7.3.698 [place] .3.159251 084.8 Medica l .8 [place] 2021-05-24 2021-05-24 Travel 1.2.840.1 1.2.378.656 2412 1167 Univers 00:00:00 00:00:00 88111.1.1 350.1.13.10 ity of 3.104.2.7 [place]7.3.698 [place] .3.486306 084.8 Medica l .8 [place] 2021-05-10 2021-05-10 Outpatient R SELF, [facility] [id number] Univers 08:45:00 08:45:00 JAMES anderson [facility] 2021-04-29 2021-04-29 Outpatient R GALARZA, [facility] [id number] Univers 13:00:00 13:33:16 HONORIO erickson [facility] 2021-04-29 2021-04-29 Outpatient R GALARZA, [facility] [id number] Univers 13:00:00 13:00:00 HONORIO itadrian [facility] 2021-04-29 2021-04-29 Travel 1.2.840.1 1.2.184.924 6550 6843 Univers 00:00:00 00:00:00 59416.1.1 350.1.13.10 ity of 3.104.2.7 [place].7.3.698 [place] .3.752106 084.8 Medica l .8 [place] 2021-04-29 2021-04-29 Travel 1.2.840.1 1.2.130.053 4816 6843 Univers 00:00:00 00:00:00 60668.1.1 350.1.13.10 ity of 3.104.2.7 [place].7.3.698 [place] .3.766679 084.8 Medica l .8 [place] 2021-03-18 2021-03-18 [facility] [id number] Univers 15:00:00 15:00:00 HONORIO erickson [facility] 2021-03-18 2021-03-18 Travel 1.2.840.1 1.2.930.953 6552 6290 Univers 00:00:00 00:00:00 19727.1.1 350.1.13.10 ity of 3.104.2.7 [place].7.3.698 [place] .3.699842 084.8 Medica l .8 [place] 2021-03-15 2021-03-15 Outpatient R REYNALDO [facility] [id number] Univers 10:15:00 10:15:00 JAMES ity o f [facility] 2021-02-25 2021-02-25 [facility] [id number] Univers 09:00:00 09:00:00 HONORIO ity [facility] 2021-02-25 2021-02-25 Travel 1.2.840.1 1.2.358.185 0255 5255 Univers 00:00:00 00:00:00 26674.1.1 350.1.13.10 ity of 3.104.2.7 [place].7.3.698 [place] .3.416806 084.8 Medica l .8 [place] 2021-02-15 2021-02-15 Outpatient R REYNALDO, [facility] [id number] Univers 11:00:00 11:00:00 JAMES itadrian o f [facility] 2021-02-15 2021-02-15 Travel 1.2.840.1 1.2.938.579 9724 5687 Univers 00:00:00 00:00:00 50973.1.1 350.1.13.10 ity of 3.104.2.7 [place].7.3.698 [place] .3.418914 084.8 Medica l .8 [place] 2021-02-11 2021-02-11 [facility] [id number] Univers 11:00:00 11:00:[facility] 2021-02-11 2021-02-11 Travel 1.2.840.1 1.2.726.625 0529 4822 Univers 00:00:00 00:00:00 51987.1.1 350.1.13.10 ity of 3.104.2.7 [place].7.3.698 [place] .3.629298 084.8 Medica l .8 [place] 2021-01-28 2021-01-28 Household Assistant Paolo Rivera 1.2.840.1 [id number] Univers 13:53:29 14:08:29 Visit Pcp-Lab 01574.1.1 ity of 3.104.2.7 [place] .3.871800 Medica l .8 [place] 2021-01-28 2021-01-28 [facility] [id number] Univers 13:00:00 13:00:00 [facility] 2021-01-28 2021-01-28 Travel 1.2.840.1 1.2.468.378 1972 1440 Univers 00:00:00 00:00:00 10042.1.1 350.1.13.10 ity of 3.104.2.7 [place]7.3.698 [place] .3.919326 084.8 Medica l .8 [place] 2021-01-25 2021-01-25 Outpatient Escobar JACOBS, [facility] [id number] Univers 09:30:00 09:30:00 JAMES braxton [facility] 2021-01-25 2021-01-25 Travel 1.2.840.1 1.2.170.094 3281 4049 Univers 00:00:00 00:00:00 99584.1.1 350.1.13.10 ity of 3.104.2.7 [place].7.3.698 [place] .3.524523 084.8 Medica l .8 [place] 2021-01-13 2021-01-13 [facility] [id number] Univers 16:00:00 16:00:00 JAMES braxton [facility] 2021-01-13 2021-01-13 Travel 1.2.840.1 1.2.126.341 9212 8345 Univers 00:00:00 00:00:00 92449.1.1 350.1.13.10 ity of 3.104.2.7 [place].7.3.698 [place] .3.995222 084.8 Medica l .8 [place] 2020-12-31 2020-12-31 Household Assistant Tim Holguin 1.2.840.8 [id number] Univers 16:38:39 16:54:09 Visit Pcp-Lab 32159.1.1 ity of 3.104.2.7 [place] .3.812503 Medica l .8 [place] 2020-12-31 2020-12-31 Outpatient Escobar GALARZA [facility] [id number] Univers 16:00:00 16:00:00 HONORIO bernaladrian [facility] 2020-12-31 2020-12-31 Travel 1.2.840.1 1.2.998.684 4821 7339 Univers 00:00:00 00:00:00 65386.1.1 350.1.13.10 ity of 3.104.2.7 [place].7.3.698 [place] .3.950312 084.8 Medica l .8 [place] 2020-12-28 2020-12-28 Orders Doctor 1.2.840.5 [id number] Univers 00:00:00 00:00:00 Only Unassigned, 26961.1.1 ity of [place] 3.104.2.7 [place] .3.478446 Medica l .8 [place] 2020-12-24 2020-12-24 Outpatient Escobar HOLGUIN [facility] [id number] Univers 11:00:00 11:00:00 TIM campbell [facility] 2020-12-24 2020-12-24 Travel 1.2.840.1 1.2.253.447 7530 7276 Univers 00:00:00 00:00:00 54137.1.1 350.1.13.10 ity of 3.104.2.7 [place].7.3.698 [place] .3.502741 084.8 Medica l .8 [place] 2020-12-17 2020-12-17 Outpatient Escobar GALARZA [facility] [id number] Univers 11:00:00 11:00:00 HONORIO [facility] 2020-11-26 2020-11-26 Outpatient Escobar GALARZA [facility] [id number] Univers 16:00:00 16:00:00 HONORIO adrian [facility] 2020-11-26 2020-11-26 Travel 1.2.840.1 1.2.438.074 4545 0854 Univers 00:00:00 00:00:00 98640.1.1 350.1.13.10 ity of 3.104.2.7 4.2.7.3.698 [place] .3.451611 084.8 Medica l .8 [place] 2020-11-26 2020-11-26 Travel 1.2.840.1 1.2.692.340 0088 0854 Univers 00:00:00 00:00:00 08285.1.1 350.1.13.10 ity of 3.104.2.7 4.2.7.3.698 [place] .3.738827 084.8 Medica l .8 [place] 2020-11-21 2020-11-21 Imm/Inj TcGideon 1.2.840.8 543 [id number] Univers 10:04:35 10:09:35 Visit Immunization, [facility] 56663.1.1 ity of 3.104.2.7 [place] .3.648425 Medica l .8 [place] 2020-11-21 2020-11-21 Outpatient R TC [facility] [id number] Univers 10:05:00 10:05:00 GIDEON itadrian [facility] 2020-11-17 2020-11-17 Outpatient R CHELSY ROMO [facility] [id number] Univers 15:45:00 15:45:00 ity [facility] 2020-11-17 2020-11-17 Travel 1.2.840.1 1.2.733.227 3157 3821 Univers 00:00:00 00:00:00 50983.1.1 350.1.13.10 ity of 3.104.2.7 4.[place].7.3.698 [place] .3.925653 084.8 Medica l .8 [place] 2020-11-16 2020-11-16 Orders Doctor 1.2.840.2 [id number] [id number] Univers 00:00:00 00:00:00 Only Unassigned, 01336.1.1 ity of [place] 3.104.2.7 [place] .3.844651 Medica l .8 [place] 2020-11-12 2020-11-12 Outpatient R GEOVANNI [facility] [id number] Univers 08:00:00 08:00:00 HONORIO ity [facility] 2020-11-12 2020-11-12 Travel 1.2.840.1 1.2.571.750 4684 7122 Univers 00:00:00 00:00:00 70158.1.1 350.1.13.10 ity of 3.104.2.7 4.[place].7.3.698 [place] .3.615101 084.8 Medica l .8 [place] 2020-10-29 2020-10-29 Outpatient Escobar HOLGUIN [facility] [id number] Univers 09:30:00 09:30:00 TIM it y of [facility] 2020-10-24 2020-10-24 Imm/Inj Gio Martinez 1.2.840.1 [id number] Univers 09:54:36 10:09:56 Visit Immunization, [facility] [employer] 19297.1.1 ity of 3.104.2.7 [place] .3.131181 Medica l [address] 2020-10-24 2020-10-24 Outpatient R MAHESH [facility] [id number] Univers 10:00:00 10:00:00 GIO ity of [facility] 2020-10-24 2020-10-24 Travel 1.2.840.1 1.2.667.944 0986 3748 Univers 00:00:00 00:00:00 57952.1.1 350.1.13.10 ity of 3.104.2.7 4.[place].7.3.698 [place] .3.605835 084.8 Medica l [address] [place] [address] 2020-09-25 2020-09-26 Emergency E BRINDA, [facility] [id number] [facility] [place] [facility] 23:49:00 10:04:00 ALAINA Medica [facility] 2020-09-17 2020-09-17 Telephone Simon, 1.2.840.8 [id number] Univers 00:00:00 00:00:00 Nilton A 29761.1.1 i ty of 3.104.2.7 [place] .3.600051 Medica l [address] 2020-08-18 2020-08-18 Outpatient R CLARISSA CHELSY [facility] [id number] Univers 15:00:00 15:00:00 ity of [facility] 2020-07-08 2020-07-08 Office Simon 1.2.840.2 [id number] [id number] Univers 12:55:33 15:36:41 Visit Nilton Luciano 48002.1.1 i ty of 3.104.2.7 [place] .3.811703 Medica l .8 [place] 2020-07-08 2020-07-08 Outpatient R NILTON MONTES [facility] [id number] Univers 13:30:00 13:30:00 NILTON MONTES ity of [facility] 2020-07-08 2020-07-08 Orders Doctor 1.2.840.7 [id number] Univers 00:00:00 00:00:00 Only Unassigned, 45741.1.1 ity of [place] 3.104.2.7 [place] .3.946851 Medica l .8 [place] 2020-07-08 2020-07-08 Letter Simon 1.2.840.0 [id number] 596 Univers 00:00:00 00:00:00 (Out) Nilton Luciano 03577.1.1 i ty of 3.104.2.7 [place] .3.477824 Medica l .8 [place] 2020-05-21 2020-05-21 Outpatient R NICOLE [facility] [id number] Univers 10:15:00 10:15:00 DENA ity of [facility] 2020-05-21 2020-05-21 Orders Doctor 1.2.840.7 [id number] Univers 00:00:00 00:00:00 Only Unassigned, 50212.1.1 ity of [place] 3.104.2.7 [place] .3.516757 Medica l .8 [place] 2020-04-24 2020-04-24 Outpatient R ASH RAMIREZ [facility] [id number] Univers 16:00:00 16:00:00 ity of [facility] 2020-04-22 2020-04-22 Telephone Ash Ramirez 1.2.840.9 [id number] Univers 00:00:00 00:00:00 33302.1.1 ity of 3.104.2.7 [place] .3.770909 Medica l .8 [place] 2020-04-21 2020-04-21 Case Ash Ramirez 1.2.840.9 [id number] Univers 00:00:00 00:00:00 Management 94810.1.1 i ty of 3.104.2.7 [place] .3.920996 Medica l .8 [place] 2020-04-20 2020-04-20 Office Ash Ramirez 1.2.840.3 [id number] Univers 15:09:50 16:30:58 Visit 36201.1.1 ity of 3.104.2.7 [place] .3.040283 Medica l .8 [place] 2020-04-20 2020-04-20 Outpatient R ASH RAMIREZ [facility] [id number] Univers 15:30:00 15:30:00 ity of [facility] 2020-04-20 2020-04-20 Travel 1.2.840.1 1.2.637.691 4231 7424 Univers 00:00:00 00:00:00 40520.1.1 350.1.13.10 ity of 3.104.2.7 4.2.7.3.698 [place] .3.353561 084.8 Medica l .8 [place] 2020-04-16 2020-04-16 Emergency Checo, Kitty 1.2.840.9 [id number] Univers 11:02:00 13:56:00 Bree 38982.1.1 ity of 3.104.2.7 [place] .3.645465 Medica l .8 [place] 2020-04-16 2020-04-16 Travel 1.2.840.1 1.2.704.730 7206 3692 Univers 00:00:00 00:00:00 75970.1.1 350.1.13.10 ity of 3.104.2.7 4.2.7.3.698 [place] .3.209771 084.8 Medica l .8 [place] 2020-04-07 2020-04-07 Outpatient R CHELSY ROMO [facility] [id number] Univers 13:30:00 13:30:00 ity of [facility] 2020-04-07 2020-04-07 Travel 1.2.840.1 1.2.968.896 0239 9561 Univers 00:00:00 00:00:00 94487.1.1 350.1.13.10 ity of 3.104.2.7 4.2.7.3.698 [place] .3.670476 084.8 Medica l .8 [place] 2020-01-30 2020-01-30 Outpatient R DEFVARINDER, [facility] [id number] Univers 15:45:00 15:45:00 TRUNG ity of [facility] 2020-01-30 2020-01-30 Travel 1.2.840.1 1.2.100.136 6176 2349 Univers 00:00:00 00:00:00 27238.1.1 350.1.13.10 ity of 3.104.2.7 4.[place].7.3.698 [place] .3.630844 084.8 Medica l .8 [place] 2020-01-01 2020-01-01 Orders Doctor 1.2.840.6 [id number] Univers 00:00:00 00:00:00 Only Unassigned, 25487.1.1 ity of [place] 3.104.2.7 [place] .3.090390 Medica l .8 [place] 2019-10-22 2019-10-22 Outpatient R CHELSY ROMO [facility] [id number] Univers 15:45:00 15:45:00 ity of [facility] 2019-09-12 2019-09-12 Urgent Unknown, Attending 1.2.840.1 [id number] Univers 17:51:35 19:25:20 Ruchi Camargo 21474.1.1 ity of 3.104.2.7 [place] .3.716335 Medica l .8 [place] 2019-09-12 2019-09-12 Outpatient R UNKNOWN, [facility] [id number] Univers 18:00:00 18:00:00 ATTENDING ity [facility] 2019-07-04 2019-07-04 Orders Doctor 1.2.840.3 [id number] Univers 00:00:00 00:00:00 Only Unassigned, 30144.1.1 ity of [place] 3.104.2.7 [place] .3.878231 Medica l .8 [place] 2019-04-02 2019-04-02 Orders Doctor 1.2.840.9 [id number] Univers 00:00:00 00:00:00 Only Unassigned, 62951.1.1 ity of [place] 3.104.2.7 [place] .3.381961 Medica l .8 [facility] 2018-10-31 2018-10-31 Nurse Nilton Montes 1.2.840.1 [id number] [facility] 14:59:26 16:42:50 Visit Nurse, [facility] 93682.1.1 ity of 3.104.2.7 [facility]3.307896 Medica l 8 [place] Results Test Description Test Time Test Comments Results Result Comments Source AG STREP GROUP A (THROAT) POC 2022-07-15 20:12:00 Test Item Value Reference Range Interpretation Comme nts AG STREP GROUP A (THROAT) POC (test code = STREPAPOC) negative NEGATIVE POCT [id number] 01:46:00 Test Item Value Reference Range Interpretation Comments POCT PREG (test code = 1605) Negative On board controls acceptable with Present C Line (test code = 3574) POCT PREG LOT # (test code = HCG 20110903) POCT PREG TEST DATE (test 07/02/2023 code = 3576) Lab Interpretation (test code = Normal 58031-3) [facility] [id number] 01:46:00 Test Item Value Reference Range Interpretation Comments POCT PREG (test code = 1605) Negative On board controls acceptable with Present C Line (test code = 3574) POCT PREG LOT # (test code = HCG 20110903) POCT PREG TEST DATE (test 07/02/2023 code = 3576) Lab Interpretation (test code = Normal 77560-1) [facility] [id number] 01:46:00 Test Item Value Reference Range Interpretation Comments POCT PREG (test code = 1605) Negative On board controls acceptable with Present C Line (test code = 3574) POCT PREG LOT # (test code = HCG 20110903) POCT PREG TEST DATE (test 07/02/2023 code = 3576) Lab Interpretation (test code = Normal 83119-4) [facility] [id number] 01:46:00 Test Item Value Reference Range Interpretation Comments POCT PREG (test code = 1605) Negative On board controls acceptable with Present C Line (test code = 3574) POCT PREG LOT # (test code = HCG 20110903) POCT PREG TEST DATE (test 07/02/2023 code = 3576) Lab Interpretation (test code = Normal 89335-6) [facility] [id number] 01:46:00 Test Item Value Reference Range Interpretation Comments POCT PREG (test code = 1605) Negative On board controls acceptable with Present C Line (test code = 3574) POCT PREG LOT # (test code = HCG 20110903) POCT PREG TEST DATE (test 07/02/2023 code = 3576) Lab Interpretation (test code = Normal 96314-0) [facility] [id number] 01:46:00 Test Item Value Reference Range Interpretation Comments POCT PREG (test code = 1605) Negative On board controls acceptable with Present C Line (test code = 3574) POCT PREG LOT # (test code = HCG 20110903) POCT PREG TEST DATE (test 07/02/2023 code = 3576) Lab Interpretation (test code = Normal 68574-2) [facility] [id number] 01:46:00 Test Item Value Reference Range Interpretation Comments POCT PREG (test code = 1605) Negative On board controls acceptable with Present C Line (test code = 3574) POCT PREG LOT # (test code = HCG 20110903) POCT PREG TEST DATE (test 07/02/2023 code = 3576) Lab Interpretation (test code = Normal 83560-5) [facility] [id number] 01:46:00 Test Item Value Reference Range Interpretation Comments POCT PREG (test code = 1605) Negative On board controls acceptable with Present C Line (test code = 3574) POCT PREG LOT # (test code = HCG 20110903) POCT PREG TEST DATE (test 07/02/2023 code = 3576) Lab Interpretation (test code = Normal 29612-4) [facility] [id number] 01:46:00 Test Item Value Reference Range Interpretation Comments POCT PREG (test code = 1605) Negative On board controls acceptable with Present C Line (test code = 3574) POCT PREG LOT # (test code = HCG 20110903) POCT PREG TEST DATE (test 07/02/2023 code = 3576) Lab Interpretation (test code = Normal 13334-6) [facility] [id number] 01:46:00 Test Item Value Reference Range Interpretation Comments POCT PREG (test code = 1605) Negative On board controls acceptable with Present C Line (test code = 3574) POCT PREG LOT # (test code = HCG 20110903) POCT PREG TEST DATE (test 07/02/2023 code = 3576) Lab Interpretation (test code = Normal 78839-3) [facility] [id number] 01:46:00 Test Item Value Reference Range Interpretation Comments POCT PREG (test code = 1605) Negative On board controls acceptable with Present C Line (test code = 3574) POCT PREG LOT # (test code = HCG 20110903) POCT PREG TEST DATE (test 07/02/2023 code = 3576) Lab Interpretation (test code = Normal 24686-0) [facility] [id number] 01:46:00 Test Item Value Reference Range Interpretation Comments POCT PREG (test code = 1605) Negative On board controls acceptable with Present C Line (test code = 3574) POCT PREG LOT # (test code = HCG 20110903) POCT PREG TEST DATE (test 07/02/2023 code = 3576) Lab Interpretation (test code = Normal 04647-2) [facility] [id number] 01:46:00 Test Item Value Reference Range Interpretation Comments POCT PREG (test code = 1605) Negative On board controls acceptable with Present C Line (test code = 3574) POCT PREG LOT # (test code = HCG 20110903) POCT PREG TEST DATE (test 07/02/2023 code = 3576) Lab Interpretation (test code = Normal 21684-6) [facility] [id number] 01:46:00 Test Item Value Reference Range Interpretation Comments POCT PREG (test code = 1605) Negative On board controls acceptable with Present C Line (test code = 3574) POCT PREG LOT # (test code = HCG 20110903) POCT PREG TEST DATE (test 07/02/2023 code = 3576) Lab Interpretation (test code = Normal 05887-3) [facility] [id number] 01:46:00 Test Item Value Reference Range Interpretation Comments POCT PREG (test code = 1605) Negative On board controls acceptable with Present C Line (test code = 3574) POCT PREG LOT # (test code = HCG 20110903) POCT PREG TEST DATE (test 07/02/2023 code = 3576) Lab Interpretation (test code = Normal 37749-6) [facility] [id number] 01:46:00 Test Item Value Reference Range Interpretation Comments POCT PREG (test code = 1605) Negative On board controls acceptable with Present C Line (test code = 3574) POCT PREG LOT # (test code = HCG 20110903) POCT PREG TEST DATE (test 07/02/2023 code = 3576) Lab Interpretation (test code = Normal 44683-0) [facility] [id number] 01:46:00 Test Item Value Reference Range Interpretation Comments POCT PREG (test code = 1605) Negative On board controls acceptable with Present C Line (test code = 3574) POCT PREG LOT # (test code = HCG 20110903) POCT PREG TEST DATE (test 07/02/2023 code = 3576) Lab Interpretation (test code = Normal 52339-3) [facility] [id number] 01:46:00 Test Item Value Reference Range Interpretation Comments POCT PREG (test code = 1605) Negative On board controls acceptable with Present C Line (test code = 3574) POCT PREG LOT # (test code = HCG 20110903) POCT PREG TEST DATE (test 07/02/2023 code = 3576) Lab Interpretation (test code = Normal 14965-8) [id number] Test Item Value Reference Range Interpretation Comments POCT PREG (test code = 1605) Negative On board controls acceptable with Present C Line (test code = 3574) POCT PREG LOT # (test code = HCG 20110903) POCT PREG TEST DATE (test 07/02/2023 code = 3576) Lab Interpretation (test code = Normal 90502-3) [facility] [id number] 01:46:00 Test Item Value Reference Range Interpretation Comments POCT PREG (test code = 1605) Negative On board controls acceptable with Present C Line (test code = 3574) POCT PREG LOT # (test code = HCG 20110903) POCT PREG TEST DATE (test 07/02/2023 code = 3576) Lab Interpretation (test code = Normal 34817-0) [facility] [id number] 01:46:00 Test Item Value Reference Range Interpretation Comments POCT PREG (test code = 1605) Negative On board controls acceptable with Present C Line (test code = 3574) POCT PREG LOT # (test code = HCG 20110903) POCT PREG TEST DATE (test 07/02/2023 code = 3576) Lab Interpretation (test code = Normal 15603-4) [facility] [id number] 01:46:00 Test Item Value Reference Range Interpretation Comments POCT PREG (test code = 1605) Negative On board controls acceptable with Present C Line (test code = 3574) POCT PREG LOT # (test code = HCG 20110903) POCT PREG TEST DATE (test 07/02/2023 code = 3576) Lab Interpretation (test code = Normal 98983-5) [facility] [id number] 01:46:00 Test Item Value Reference Range Interpretation Comments POCT PREG (test code = 1605) Negative On board controls acceptable with Present C Line (test code = 3574) POCT PREG LOT # (test code = HCG [id number] 3575) POCT PREG TEST DATE (test 07/02/2023 code = 3576) Lab Interpretation (test code = Normal 87206-8) [facility] METABOLIC PANEL (NA, K, CL, CO2, GLUCOSE, BUN, CREATININE, CA)2022-04-05 11:08:28 Test Item Value Reference Range Interpretation Comments NA (test code = 137 mmol/L 135-145 8341533914) K (test code = 3.8 mmol/L 3.5-5 2714239867) CL (test code = 104 mmol/L 98-108 3940500223) CO2 TOTAL (test code 27 mmol/L 23-31 = 1784850460) AGAP (test code = 2-16 1592055271) BUN (test code = 13 mg/dL 7-23 8020556557) GLUCOSE (test code = 106 mg/dL 70-110 1439023190) CREATININE (test code 0.58 mg/dL 0.5-1.04 = 7076821273) CALCIUM (test code = 8.6 mg/dL 8.6-10.6 6790621900) eGFR (test code = mL/min/1.73m2 0868620683) MEDHAT (test code = MEDHAT) Association of [...] or urine or abnormalities in imaging tests). [facility] METABOLIC PANEL (NA, K, CL, CO2, GLUCOSE, BUN, CREATININE, CA)2022-04-05 11:08:28 Test Item Value Reference Range Interpretation Comments NA (test code = 137 mmol/L 135-145 4246154746) K (test code = 3.8 mmol/L 3.5-5 9502474860) CL (test code = 104 mmol/L 98-108 1676716207) CO2 TOTAL (test code 27 mmol/L 23-31 = 3941146345) AGAP (test code = 2-16 8750819030) BUN (test code = 13 mg/dL 7-23 2905107312) GLUCOSE (test code = 106 mg/dL 70-110 3711266221) CREATININE (test code 0.58 mg/dL 0.5-1.04 = 0036141451) CALCIUM (test code = 8.6 mg/dL 8.6-10.6 2322746425) eGFR (test code = mL/min/1.73m2 1814380768) MEDHAT (test code = MEDHAT) Association of [...] or urine or abnormalities in imaging tests). [facility] METABOLIC PANEL (NA, K, CL, CO2, GLUCOSE, BUN, CREATININE, CA)2022-04-05 11:08:28 Test Item Value Reference Range Interpretation Comments NA (test code = 137 mmol/L 135-145 3476391935) K (test code = 3.8 mmol/L 3.5-5 6645988790) CL (test code = 104 mmol/L 98-108 5985771184) CO2 TOTAL (test code 27 mmol/L 23-31 = 2356190672) AGAP (test code = 2-16 5575063804) BUN (test code = 13 mg/dL 7-23 5299661904) GLUCOSE (test code = 106 mg/dL 70-110 9861960512) CREATININE (test code 0.58 mg/dL 0.5-1.04 = 5570511704) CALCIUM (test code = 8.6 mg/dL 8.6-10.6 0031541184) eGFR (test code = mL/min/1.73m2 7609714866) MEDHAT (test code = MEDHAT) Association of [...] urine or abnormalities in imaging tests). [facility] (NA, K, CL, CO2, GLUCOSE, BUN, CREATININE, CA)2022-04-05 11:08:28 Test Item Value Reference Range Interpretation Comments NA (test code = 137 mmol/L 135-145 8717704804) K (test code = 3.8 mmol/L 3.5-5 1311093696) CL (test code = 104 mmol/L 98-108 8611139625) CO2 TOTAL (test code 27 mmol/L 23-31 = 4026504292) AGAP (test code = 2-16 3866045716) BUN (test code = 13 mg/dL 7-23 1596879554) GLUCOSE (test code = 106 mg/dL 70-110 6766967195) CREATININE (test code 0.58 mg/dL 0.5-1.04 = 5220749020) CALCIUM (test code = 8.6 mg/dL 8.6-10.6 9188276292) eGFR (test code = mL/min/1.73m2 4225171938) MEDHAT (test code = MEDHAT) Association of [...] or urine or abnormalities in imaging tests). [facility] METABOLIC PANEL (NA, K, CL, CO2, GLUCOSE, BUN, CREATININE, CA)2022-04-05 11:08:28 Test Item Value Reference Range Interpretation Comments NA (test code = 137 mmol/L 135-145 6139177074) K (test code = 3.8 mmol/L 3.5-5 9139462608) CL (test code = 104 mmol/L 98-108 9225446080) CO2 TOTAL (test code 27 mmol/L 23-31 = 6817473304) AGAP (test code = 2-16 5101021412) BUN (test code = 13 mg/dL 7-23 1281180242) GLUCOSE (test code = 106 mg/dL 70-110 7533663335) CREATININE (test code 0.58 mg/dL 0.5-1.04 = 0738802942) CALCIUM (test code = 8.6 mg/dL 8.6-10.6 0365133041) eGFR (test code = mL/min/1.73m2 2392877837) MEDHAT (test code = MEDHAT) Association of [...] urine or abnormalities in imaging tests). [facility] (NA, K, CL, CO2, GLUCOSE, BUN, CREATININE, CA)2022-04-05 11:08:28 Test Item Value Reference Range Interpretation Comments NA (test code = 137 mmol/L 135-145 9382138656) K (test code = 3.8 mmol/L 3.5-5 8496057604) CL (test code = 104 mmol/L 98-108 7519381748) CO2 TOTAL (test code 27 mmol/L 23-31 = 1972973799) AGAP (test code = 2-16 6590633228) BUN (test code = 13 mg/dL 7-23 4730238643) GLUCOSE (test code = 106 mg/dL 70-110 9615131590) CREATININE (test code 0.58 mg/dL 0.5-1.04 = 6231106724) CALCIUM (test code = 8.6 mg/dL 8.6-10.6 6420298845) eGFR (test code = mL/min/1.73m2 9249221249) MEDHAT (test code = MEDHAT) Association of [...] or urine or abnormalities in imaging tests). [facility] METABOLIC PANEL (NA, K, CL, CO2, GLUCOSE, BUN, CREATININE, CA)2022-04-05 11:08:28 Test Item Value Reference Range Interpretation Comments NA (test code = 137 mmol/L 135-145 6683144806) K (test code = 3.8 mmol/L 3.5-5 3448198618) CL (test code = 104 mmol/L 98-108 6928449747) CO2 TOTAL (test code 27 mmol/L 23-31 = 1955950196) AGAP (test code = 2-16 2984670953) BUN (test code = 13 mg/dL 7-23 0998711173) GLUCOSE (test code = 106 mg/dL 70-110 1199311532) CREATININE (test code 0.58 mg/dL 0.5-1.04 = 3730433265) CALCIUM (test code = 8.6 mg/dL 8.6-10.6 2599064661) eGFR (test code = mL/min/1.73m2 2692926349) MEDHAT (test code = MEDHAT) Association of [...] or urine or abnormalities in imaging tests). [facility] METABOLIC PANEL (NA, K, CL, CO2, GLUCOSE, BUN, CREATININE, CA)2022-04-05 11:08:28 Test Item Value Reference Range Interpretation Comments NA (test code = 137 mmol/L 135-145 8316734499) K (test code = 3.8 mmol/L 3.5-5 0723007861) CL (test code = 104 mmol/L 98-108 7378328300) CO2 TOTAL (test code 27 mmol/L 23-31 = 1045201402) AGAP (test code = 2-16 9417711671) BUN (test code = 13 mg/dL 7-23 5228085763) GLUCOSE (test code = 106 mg/dL 70-110 4995650534) CREATININE (test code 0.58 mg/dL 0.5-1.04 = 3548867300) CALCIUM (test code = 8.6 mg/dL 8.6-10.6 5474320852) eGFR (test code = mL/min/1.73m2 5620537254) MEDHAT (test code = MEDHAT) Association of [...] or urine or abnormalities in imaging tests). [facility] METABOLIC PANEL (NA, K, CL, CO2, GLUCOSE, BUN, CREATININE, CA)2022-04-05 11:08:28 Test Item Value Reference Range Interpretation Comments NA (test code = 137 mmol/L 135-145 9232208934) K (test code = 3.8 mmol/L 3.5-5 2386415930) CL (test code = 104 mmol/L 98-108 8696922723) CO2 TOTAL (test code 27 mmol/L 23-31 = 1551580384) AGAP (test code = 2-16 3273347246) BUN (test code = 13 mg/dL 7-23 8501134531) GLUCOSE (test code = 106 mg/dL 70-110 7327883712) CREATININE (test code 0.58 mg/dL 0.5-1.04 = 3719238443) CALCIUM (test code = 8.6 mg/dL 8.6-10.6 0839899862) eGFR (test code = mL/min/1.73m2 5219367763) MEDHAT (test code = MEDHAT) Association of [...] or urine or abnormalities in imaging tests). [facility] METABOLIC PANEL (NA, K, CL, CO2, GLUCOSE, BUN, CREATININE, CA)2022-04-05 11:08:28 Test Item Value Reference Range Interpretation Comments NA (test code = 137 mmol/L 135-145 9140914485) K (test code = 3.8 mmol/L 3.5-5 2909467254) CL (test code = 104 mmol/L 98-108 6256418662) CO2 TOTAL (test code 27 mmol/L 23-31 = 9884661837) AGAP (test code = 2-16 6693586328) BUN (test code = 13 mg/dL 7-23 1117417398) GLUCOSE (test code = 106 mg/dL 70-110 8011013746) CREATININE (test code 0.58 mg/dL 0.5-1.04 = 3840009806) CALCIUM (test code = 8.6 mg/dL 8.6-10.6 7907148400) eGFR (test code = mL/min/1.73m2 9459154710) MEDHAT (test code = MEDHAT) Association of [...] or urine or abnormalities in imaging tests). [facility] METABOLIC PANEL (NA, K, CL, CO2, GLUCOSE, BUN, CREATININE, CA)2022-04-05 11:08:28 Test Item Value Reference Range Interpretation Comments NA (test code = 137 mmol/L 135-145 1666703723) K (test code = 3.8 mmol/L 3.5-5 9866475331) CL (test code = 104 mmol/L 98-108 8254097430) CO2 TOTAL (test code 27 mmol/L 23-31 = 0030480824) AGAP (test code = 2-16 1335216478) BUN (test code = 13 mg/dL 7-23 1932441193) GLUCOSE (test code = 106 mg/dL 70-110 4795218396) CREATININE (test code 0.58 mg/dL 0.5-1.04 = 2030238499) CALCIUM (test code = 8.6 mg/dL 8.6-10.6 8662129831) eGFR (test code = mL/min/1.73m2 9613949308) MEDHAT (test code = MEDHAT) Association of [...] or urine or abnormalities in imaging tests). [facility] METABOLIC PANEL (NA, K, CL, CO2, GLUCOSE, BUN, CREATININE, CA)2022-04-05 11:08:28 Test Item Value Reference Range Interpretation Comments NA (test code = 137 mmol/L 135-145 5854819074) K (test code = 3.8 mmol/L 3.5-5 6892936904) CL (test code = 104 mmol/L 98-108 3955320389) CO2 TOTAL (test code 27 mmol/L 23-31 = 1248651598) AGAP (test code = 2-16 2095420579) BUN (test code = 13 mg/dL 7-23 8346107020) GLUCOSE (test code = 106 mg/dL 70-110 6010181296) CREATININE (test code 0.58 mg/dL 0.5-1.04 = 6426046679) CALCIUM (test code = 8.6 mg/dL 8.6-10.6 6488323026) eGFR (test code = mL/min/1.73m2 3302210156) MEDHAT (test code = MEDHAT) Association of [...] or urine or abnormalities in imaging tests). [facility] METABOLIC PANEL (NA, K, CL, CO2, GLUCOSE, BUN, CREATININE, CA)2022-04-05 11:08:28 Test Item Value Reference Range Interpretation Comments NA (test code = 137 mmol/L 135-145 1065188526) K (test code = 3.8 mmol/L 3.5-5 3355433984) CL (test code = 104 mmol/L 98-108 5106491743) CO2 TOTAL (test code 27 mmol/L 23-31 = 3470611285) AGAP (test code = 2-16 3121737584) BUN (test code = 13 mg/dL 7-23 8233322518) GLUCOSE (test code = 106 mg/dL 70-110 4633863097) CREATININE (test code 0.58 mg/dL 0.5-1.04 = 4747304798) CALCIUM (test code = 8.6 mg/dL 8.6-10.6 1770675091) eGFR (test code = mL/min/1.73m2 1524363501) MEDHAT (test code = MEDHAT) Association of [...] or urine or abnormalities in imaging tests). [facility] METABOLIC PANEL (NA, K, CL, CO2, GLUCOSE, BUN, CREATININE, CA)2022-04-05 11:08:28 Test Item Value Reference Range Interpretation Comments NA (test code = 137 mmol/L 135-145 1089715628) K (test code = 3.8 mmol/L 3.5-5 5890011066) CL (test code = 104 mmol/L 98-108 2415542498) CO2 TOTAL (test code 27 mmol/L 23-31 = 9876797184) AGAP (test code = 2-16 8658282721) BUN (test code = 13 mg/dL 7-23 0126156841) GLUCOSE (test code = 106 mg/dL 70-110 9958809165) CREATININE (test code 0.58 mg/dL 0.5-1.04 = 5650480478) CALCIUM (test code = 8.6 mg/dL 8.6-10.6 4626478057) eGFR (test code = mL/min/1.73m2 2408833544) MEDHAT (test code = MEDHAT) Association of [...] or urine or abnormalities in imaging tests). [facility] METABOLIC PANEL (NA, K, CL, CO2, GLUCOSE, BUN, CREATININE, CA)2022-04-05 11:08:28 Test Item Value Reference Range Interpretation Comments NA (test code = 137 mmol/L 135-145 6797889172) K (test code = 3.8 mmol/L 3.5-5 5039678906) CL (test code = 104 mmol/L 98-108 5962402406) CO2 TOTAL (test code 27 mmol/L 23-31 = 7580826904) AGAP (test code = 2-16 2360335459) BUN (test code = 13 mg/dL 7-23 6207626095) GLUCOSE (test code = 106 mg/dL 70-110 4977413974) CREATININE (test code 0.58 mg/dL 0.5-1.04 = 4034462267) CALCIUM (test code = 8.6 mg/dL 8.6-10.6 0524184065) eGFR (test code = mL/min/1.73m2 5944032773) MEDHAT (test code = MEDHAT) Association of [...] or urine or abnormalities in imaging tests). [facility] METABOLIC PANEL (NA, K, CL, CO2, GLUCOSE, BUN, CREATININE, CA)2022-04-05 11:08:28 Test Item Value Reference Range Interpretation Comments NA (test code = 137 mmol/L 135-145 1330698943) K (test code = 3.8 mmol/L 3.5-5.0 0274985196) CL (test code = 104 mmol/L 98-108 3435331621) CO2 TOTAL (test code 27 mmol/L 23-31 = 9773710792) AGAP (test code = 2-16 3937683650) BUN (test code = 13 mg/dL 7-23 7719693701) GLUCOSE (test code = 106 mg/dL 70-110 4543885716) CREATININE (test code 0.58 mg/dL 0.50-1.04 = 1612408150) CALCIUM (test code = 8.6 mg/dL 8.6-10.6 3934605866) eGFR (test code = mL/min/1.73m2 7214471345) MEDHAT (test code = MEDHAT) Association of [...] or urine or abnormalities in imaging tests). [facility] METABOLIC PANEL (NA, K, CL, CO2, GLUCOSE, BUN, CREATININE, CA)2022-04-05 11:08:28 Test Item Value Reference Range Interpretation Comments NA (test code = 137 mmol/L 135-145 3423935853) K (test code = 3.8 mmol/L 3.5-5.0 6773193485) CL (test code = 104 mmol/L 98-108 4277775501) CO2 TOTAL (test code 27 mmol/L 23-31 = 6546302735) AGAP (test code = 2-16 4180966128) BUN (test code = 13 mg/dL 7-23 8895843356) GLUCOSE (test code = 106 mg/dL 70-110 5977180623) CREATININE (test code 0.58 mg/dL 0.50-1.04 = 6401698859) CALCIUM (test code = 8.6 mg/dL 8.6-10.6 1675091163) eGFR (test code = mL/min/1.73m2 4297897479) MEDHAT (test code = MEDHAT) Association of [...] urine or abnormalities in imaging tests). [facility] (NA, K, CL, CO2, GLUCOSE, BUN, CREATININE, CA)2022-04-05 11:08:28 Test Item Value Reference Range Interpretation Comments NA (test code = 137 mmol/L 135-145 0165114910) K (test code = 3.8 mmol/L 3.5-5.0 4516086703) CL (test code = 104 mmol/L 98-108 0046018388) CO2 TOTAL (test code 27 mmol/L 23-31 = 6770385006) AGAP (test code = 2-16 3849402446) BUN (test code = 13 mg/dL 7-23 1837656970) GLUCOSE (test code = 106 mg/dL 70-110 9509761255) CREATININE (test code 0.58 mg/dL 0.50-1.04 = 9573318178) CALCIUM (test code = 8.6 mg/dL 8.6-10.6 5077326566) eGFR (test code = mL/min/1.73m2 0415762746) MEDHAT (test code = MEDHAT) Association of [...] urine or abnormalities in imaging tests). [facility] (NA, K, CL, CO2, GLUCOSE, BUN, CREATININE, CA)2022-04-05 11:08:28 Test Item Value Reference Range Interpretation Comments NA (test code = 137 mmol/L 135-145 7696047680) K (test code = 3.8 mmol/L 3.5-5.0 0469694459) CL (test code = 104 mmol/L 98-108 4228144629) CO2 TOTAL (test code 27 mmol/L 23-31 = 9928912904) AGAP (test code = 2-16 8370141280) BUN (test code = 13 mg/dL 7-23 3350326464) GLUCOSE (test code = 106 mg/dL 70-110 4032763522) CREATININE (test code 0.58 mg/dL 0.50-1.04 = 6928794687) CALCIUM (test code = 8.6 mg/dL 8.6-10.6 2921344864) eGFR (test code = mL/min/1.73m2 0671323198) MEDHAT (test code = MEDHAT) Association of [...] or urine or abnormalities in imaging tests). [facility] METABOLIC PANEL (NA, K, CL, CO2, GLUCOSE, BUN, CREATININE, CA)2022-04-05 11:08:28 Test Item Value Reference Range Interpretation Comments NA (test code = 137 mmol/L 135-145 4942749060) K (test code = 3.8 mmol/L 3.5-5.0 3100980237) CL (test code = 104 mmol/L 98-108 5396939754) CO2 TOTAL (test code 27 mmol/L 23-31 = 7478851942) AGAP (test code = 2-16 1984363392) BUN (test code = 13 mg/dL 7-23 7832914802) GLUCOSE (test code = 106 mg/dL 70-110 8286696913) CREATININE (test code 0.58 mg/dL 0.50-1.04 = 2730544989) CALCIUM (test code = 8.6 mg/dL 8.6-10.6 1753748236) eGFR (test code = mL/min/1.73m2 7292454279) MEDHAT (test code = MEDHAT) Association of [...] or urine or abnormalities in imaging tests). [facility] METABOLIC PANEL (NA, K, CL, CO2, GLUCOSE, BUN, CREATININE, CA)2022-04-05 11:08:28 Test Item Value Reference Range Interpretation Comments NA (test code = 137 mmol/L 135-145 9497866492) K (test code = 3.8 mmol/L 3.5-5.0 4555057251) CL (test code = 104 mmol/L 98-108 5899586334) CO2 TOTAL (test code 27 mmol/L 23-31 = 3987909495) AGAP (test code = 2-16 0771168497) BUN (test code = 13 mg/dL 7-23 3083460028) GLUCOSE (test code = 106 mg/dL 70-110 4092611664) CREATININE (test code 0.58 mg/dL 0.50-1.04 = 4202705695) CALCIUM (test code = 8.6 mg/dL 8.6-10.6 5830976291) eGFR (test code = mL/min/1.73m2 8915585292) MEDHAT (test code = MEDHAT) Association of [...] or urine or abnormalities in imaging tests). [facility] METABOLIC PANEL (NA, K, CL, CO2, GLUCOSE, BUN, CREATININE, CA)2022-04-05 11:08:28 Test Item Value Reference Range Interpretation Comments NA (test code = 137 mmol/L 135-145 0962880188) K (test code = 3.8 mmol/L 3.5-5.0 2938056159) CL (test code = 104 mmol/L 98-108 5688729870) CO2 TOTAL (test code 27 mmol/L 23-31 = 7557398720) AGAP (test code = 2-16 3657044703) BUN (test code = 13 mg/dL 7-23 6013192119) GLUCOSE (test code = 106 mg/dL 70-110 0555055186) CREATININE (test code 0.58 mg/dL 0.50-1.04 = 7334928475) CALCIUM (test code = 8.6 mg/dL 8.6-10.6 7564624351) eGFR (test code = mL/min/1.73m2 7909412899) MEDHAT (test code = MEDHAT) Association of [...] urine or abnormalities in imaging tests). [facility] (NA, K, CL, CO2, GLUCOSE, BUN, CREATININE, CA)2022-04-05 11:08:28 Test Item Value Reference Range Interpretation Comments NA (test code = 137 mmol/L 135-145 9051293685) K (test code = 3.8 mmol/L 3.5-5.0 2318772879) CL (test code = 104 mmol/L 98-108 0192602086) CO2 TOTAL (test code 27 mmol/L 23-31 = 9991785871) AGAP (test code = 2-16 9491764764) BUN (test code = 13 mg/dL 7-23 0559287413) GLUCOSE (test code = 106 mg/dL 70-110 0917791518) CREATININE (test code 0.58 mg/dL 0.50-1.04 = 5747352194) CALCIUM (test code = 8.6 mg/dL 8.6-10.6 8838104399) eGFR (test code = mL/min/1.73m2 8227065644) MEDHAT (test code = MEDHAT) Association of [...] or urine or abnormalities in imaging tests). [facility] METABOLIC PANEL (NA, K, CL, CO2, GLUCOSE, BUN, CREATININE, CA)2022-04-05 11:08:28 Test Item Value Reference Range Interpretation Comments NA (test code = 137 mmol/L 135-145 9620627407) K (test code = 3.8 mmol/L 3.5-5.0 9389621886) CL (test code = 104 mmol/L 98-108 9422004083) CO2 TOTAL (test code 27 mmol/L 23-31 = 2775084526) AGAP (test code = 2-16 2167148259) BUN (test code = 13 mg/dL 7-23 0494478231) GLUCOSE (test code = 106 mg/dL 70-110 7962274202) CREATININE (test code 0.58 mg/dL 0.50-1.04 = 6522166870) CALCIUM (test code = 8.6 mg/dL 8.6-10.6 2903738480) eGFR (test code = mL/min/1.73m2 9807548443) MEDHAT (test code = MEDHAT) Association of [...] or urine or abnormalities in imaging tests). [facility] with [id number] 10:50:28 Test Item Value Reference Range Interpretation [...] RDW-SD (test code = 43.6 fL 39-49.9 58489-4) RDW-CV (test code = 13.6 % 12-15.5 788-0) PLT (test code = See_Comment [Automated 777-3) message] The sy stem which generated this result transmitted reference range : 166 - 358 10*3/ ?L. The reference r mann was not used to interpret this result as normal/abnormal . MPV (test code = 9.9 fL 9.5-12.9 27886-4) NRBC/100 WBC (test See_Comment [Automat ed code = [id number]) message] The system which generated this result transmitted reference range : 0.0 - 10.0 /100 WBCs. The refer ence range was not u sed to interpret th is result as normal/abnormal . NRBC x10^3 (test code See_Comment [Auto mated = [id number]) message] The s ystem which generated this result transmitted reference range : 10*3/?L. The reference range was not used to interpret this result as normal/abnormal . GRAN MAT (NEUT) % 65.5 % (test code = 770-8) IMM GRAN % (test code 0.30 % = [id number]) LYMPH % (test code = 25.3 % 736-9) MONO % (test code = 8.4 % 5905-5) EOS % (test code = 0.0 % 713-8) BASO % (test code = 0.5 % 706-2) GRAN MAT x10^3(ANC) 6.56 10*3/uL 1.88-7.09 (test code = [id number]) IMM GRAN x10^3 (test 0.03 10*3/uL 0-0.06 code = [id number]) LYMPH x10^3 (test code 2.53 10*3/uL 1.32-3.29 = 731-0) MONO x10^3 (test code 0.84 10*3/uL 0.33-0.92 = 742-7) EOS x10^3 (test code = 0.03-0.39 L 711-2) BASO x10^3 (test code 0.05 10*3/uL 0.01-0.07 = 704-7) Lab Interpretation Abnormal (test code = 71974-7) [facility] with [id number] 10:50:28 Test Item Value Reference Range Interpretation Comments WBC (test code = See_Comment [Automated 0590-2) message] The sy stem which generated this result transmitted reference range : 4.30 - 11.10 10*3/?L. The reference range was not used to interpret this result as normal/abnormal . RBC (test code = See_Comment [Automated 089-8) message] The sy stem which generated this [...] RDW-SD (test code = 43.6 fL 39-49.9 16921-4) RDW-CV (test code = 13.6 % 12-15.5 788-0) PLT (test code = See_Comment [Automated 777-3) message] The sy stem which generated this result transmitted reference range : 166 - 358 10*3/ ?L. The reference r mann was not used to interpret this result as normal/abnormal . MPV (test code = 9.9 fL 9.5-12.9 76282-4) NRBC/100 WBC (test See_Comment [Automat ed code = 8317026372) message] The system which generated this result transmitted reference range : 0.0 - 10.0 /100 WBCs. The refer ence range was not u sed to interpret th is result as normal/abnormal . NRBC x10^3 (test code See_Comment [Auto mated = 4414243558) message] The s ystem which generated this result transmitted reference range : 10*3/?L. The reference range was not used to interpret this result as normal/abnormal . GRAN MAT (NEUT) % 65.5 % (test code = 770-8) IMM GRAN % (test code 0.30 % = 8736555584) LYMPH % (test code = 25.3 % 736-9) MONO % (test code = 8.4 % 5905-5) EOS % (test code = 0.0 % 713-8) BASO % (test code = 0.5 % 706-2) GRAN MAT x10^3(ANC) 6.56 10*3/uL 1.88-7.09 (test code = 5294750076) IMM GRAN x10^3 (test 0.03 10*3/uL 0-0.06 code = 1514744303) LYMPH x10^3 (test code 2.53 10*3/uL 1.32-3.29 = 731-0) MONO x10^3 (test code 0.84 10*3/uL 0.33-0.92 = 742-7) EOS x10^3 (test code = 0.03-0.39 L 711-2) BASO x10^3 (test code 0.05 10*3/uL 0.01-0.07 = 704-7) Lab Interpretation Abnormal (test code = 25991-8) [facility] [id number] 01:03:38 Test Item Value Reference Interpretation Comments Range TROPONIN I (test 0.001 ng/mL See_Comment [Automated code = 6415488019) message] The system which generated this result [...] biotin. Lab Interpretation Normal (test code = 54705-7) [facility] [id number] 01:03:38 Test Item Value Reference Interpretation Comments Range TROPONIN I (test 0.001 ng/mL See_Comment [Automated code = 4766504150) message] The system which generated this result [...] biotin. Lab Interpretation Normal (test code = 97406-2) [facility] [id number] 01:03:38 Test Item Value Reference Interpretation Comments Range TROPONIN I (test 0.001 ng/mL See_Comment [Automated code = 6132435341) message] The system which generated this result [...] biotin. Lab Interpretation Normal (test code = 57640-9) [facility] [id number] 01:03:38 Test Item Value Reference Interpretation Comments Range TROPONIN I (test 0.001 ng/mL See_Comment [Automated code = 8742805049) message] The system which generated this result [...] biotin. Lab Interpretation Normal (test code = 14182-9) [facility] [id number] 01:03:38 Test Item Value Reference Interpretation Comments Range TROPONIN I (test 0.001 ng/mL See_Comment [Automated code = 8270309237) message] The system which generated this result [...] biotin. Lab Interpretation Normal (test code = 19712-6) [facility] [id number] 01:03:38 Test Item Value Reference Interpretation Comments Range TROPONIN I (test 0.001 ng/mL See_Comment [Automated code = 5329661031) message] The system which generated this result [...] biotin. Lab Interpretation Normal (test code = 45751-4) [facility] [id number] 01:03:38 Test Item Value Reference Interpretation Comments Range TROPONIN I (test 0.001 ng/mL See_Comment [Automated code = 6931509730) message] The system which generated this result [...] biotin. Lab Interpretation Normal (test code = 50001-5) [facility] [id number] 01:03:38 Test Item Value Reference Interpretation Comments Range TROPONIN I (test 0.001 ng/mL See_Comment [Automated code = 9726697710) message] The system which generated this result [...] biotin. Lab Interpretation Normal (test code = 08181-9) [facility] [id number] 01:03:38 Test Item Value Reference Interpretation Comments Range TROPONIN I (test 0.001 ng/mL See_Comment [Automated code = 4074231730) message] The system which generated this result [...] biotin. Lab Interpretation Normal (test code = 35274-9) [facility] [id number] 01:03:38 Test Item Value Reference Interpretation Comments Range TROPONIN I (test 0.001 ng/mL See_Comment [Automated code = 1816012981) message] The system which generated this result [...] biotin. Lab Interpretation Normal (test code = 20635-2) [facility] [id number] 01:03:38 Test Item Value Reference Interpretation Comments Range TROPONIN I (test 0.001 ng/mL See_Comment [Automated code = 5934382312) message] The system which generated this result [...] biotin. Lab Interpretation Normal (test code = 59144-5) [facility] [id number] 01:03:38 Test Item Value Reference Interpretation Comments Range TROPONIN I (test 0.001 ng/mL See_Comment [Automated code = 9422000410) message] The system which generated this result [...] biotin. Lab Interpretation Normal (test code = 16385-0) [facility] [id number] 01:03:38 Test Item Value Reference Interpretation Comments Range TROPONIN I (test 0.001 ng/mL See_Comment [Automated code = 3137372002) message] The system which generated this result [...] biotin. Lab Interpretation Normal (test code = 65813-2) [facility] [id number] 01:03:38 Test Item Value Reference Interpretation Comments Range TROPONIN I (test 0.001 ng/mL See_Comment [Automated code = 1548159530) message] The system which generated this result [...] biotin. Lab Interpretation Normal (test code = 68667-5) [facility] [id number] 01:03:38 Test Item Value Reference Interpretation Comments Range TROPONIN I (test 0.001 ng/mL See_Comment [Automated code = 1418929032) message] The system which generated this result [...] biotin. Lab Interpretation Normal (test code = 50165-5) [facility] [id number] 01:03:38 Test Item Value Reference Interpretation Comments Range TROPONIN I (test 0.001 ng/mL See_Comment [Automated code = 7779871169) message] The system which generated this result [...] biotin. Lab Interpretation Normal (test code = 25061-9) [facility] [id number] 01:03:38 Test Item Value Reference Interpretation Comments Range TROPONIN I (test 0.001 ng/mL See_Comment [Automated code = 7819476210) message] The system which generated this result [...] biotin. Lab Interpretation Normal (test code = 50208-2) [facility] [id number] 01:03:38 Test Item Value Reference Interpretation Comments Range TROPONIN I (test 0.001 ng/mL See_Comment [Automated code = 9537902745) message] The system which generated this result [...] biotin. Lab Interpretation Normal (test code = 30149-2) [facility] [id number] 01:03:38 Test Item Value Reference Interpretation Comments Range TROPONIN I (test 0.001 ng/mL See_Comment [Automated code = 2986947346) message] The system which generated this result [...] biotin. Lab Interpretation Normal (test code = 12828-2) [facility] [id number] 01:03:38 Test Item Value Reference Interpretation Comments Range TROPONIN I (test 0.001 ng/mL See_Comment [Automated code = 6098121298) message] The system which generated this result [...] biotin. Lab Interpretation Normal (test code = 15353-4) [facility] [id number] 01:03:38 Test Item Value Reference Interpretation Comments Range TROPONIN I (test 0.001 ng/mL See_Comment [Automated code = 0787959452) message] The system which generated this result [...] biotin. Lab Interpretation Normal (test code = 42269-6) [facility] [id number] 01:03:38 Test Item Value Reference Interpretation Comments Range TROPONIN I (test 0.001 ng/mL See_Comment [Automated code = 6982674682) message] The system which generated this result [...] biotin. Lab Interpretation Normal (test code = 01980-1) [facility] [id number] 01:03:38 Test Item Value Reference Interpretation Comments Range TROPONIN I (test 0.001 ng/mL See_Comment [Automated code = 6875623362) message] The system which generated this result [...] biotin. Lab Interpretation Normal (test code = 93589-0) [facility] [id number] 01:03:38 Test Item Value Reference Interpretation Comments Range TROPONIN I (test 0.001 ng/mL See_Comment [Automated code = 6404748498) message] The system which generated this result [...] biotin. Lab Interpretation Normal (test code = 39192-1) [facility] and Screen - ONCE [id number] 21:06:03 Test Item Value Reference Range Interpretation Comments ABO & RH (test code A Positive Performe d at [facility] = 20) Laboratory [facility] [place] [address] Free: [phone] A No. [id number] IAT (test code = Negative Performed a t [facility] 1185) Laboratory [facility] Blood [place] [address]Toll Free: [phone] A No. [id number] [facility] Screen - ONCE [id number] 21:06:03 Test Item Value Reference Range Interpretation Comments ABO & RH (test code A Positive Performe d at [facility] = 20) Laboratory [facility] [place], [place] [address]Toll Free: [phone] A No. [id number] IAT (test code = Negative Performed a t [facility] 1185) Laboratory [facility] [place], [place] [address]Toll Free: [phone] A No. [id number] [facility] Screen - ONCE [id number] 21:06:03 Test Item Value Reference Range Interpretation Comments ABO & RH (test code A Positive Performe d at [facility] = 20) Laboratory [facility] [place], [place] [address]Toll Free: [phone] A No. [id number] IAT (test code = Negative Performed a t [facility] 1185) Laboratory [facility] Blood [place] [address]Toll Free: [phone] A No. [id number] [facility] and Screen - ONCE [id number] 21:06:03 Test Item Value Reference Range Interpretation Comments ABO & RH (test code A Positive Performe d at [facility] = 20) Laboratory [facility] Blood [place] [address]Toll Free: [phone] A No. [id number] IAT (test code = Negative Performed a t [facility] 1185) Laboratory [facility] Blood [place] [address]Toll Free: [phone] A No. [id number] [facility] and Screen - ONCE [id number] 21:06:03 Test Item Value Reference Range Interpretation Comments ABO & RH (test code A Positive Performe d at [facility] = 20) Laboratory [facility] Blood [place] [address]Toll Free: [phone] A No. [id number] IAT (test code = Negative Performed a t [facility] 1185) Laboratory [facility] [place], [place] [address]Toll Free: [phone] A No. [id number] [facility] and Screen - ONCE [id number] 21:06:03 Test Item Value Reference Range Interpretation Comments ABO & RH (test code A Positive Performe d at [facility] = 20) Laboratory [facility] [place], [place] [address]Toll Free: [phone] A No. [id number] IAT (test code = Negative Performed a t [facility] 1185) Laboratory [facility] [place], [place] [address]Toll Free: [phone] A No. [id number] [facility] Screen - ONCE [id number] 21:06:03 Test Item Value Reference Range Interpretation Comments ABO & RH (test code A Positive Performe d at [facility] = 20) Laboratory [facility] [place], [place] [address]Toll Free: [phone] A No. [id number] IAT (test code = Negative Performed a t [facility] 1185) Laboratory [facility] Blood [place] [address]Toll Free: [phone] A No. [id number] [facility] Screen - ONCE [id number] 21:06:03 Test Item Value Reference Range Interpretation Comments ABO & RH (test code A Positive Performe d at [facility] = 20) Laboratory [facility] Blood [place] [address]Toll Free: [phone] A No. [id number] IAT (test code = Negative Performed a t [facility] 1185) Laboratory [facility] Blood [place] [address]Toll Free: [phone] A No. [id number] [facility] and Screen - ONCE [id number] 21:06:03 Test Item Value Reference Range Interpretation Comments ABO & RH (test code A Positive Performe d at [facility] = 20) Laboratory [facility] [place], [place] [address]Toll Free: [phone] A No. [id number] IAT (test code = Negative Performed a t [facility] 1185) Laboratory [facility] [place], [place] [address]Toll Free: [phone] A No. [id number] [facility] Screen - ONCE [id number] 21:06:03 Test Item Value Reference Range Interpretation Comments ABO & RH (test code A Positive Performe d at [facility] = 20) Laboratory [facility] Blood [place] [address]Toll Free: [phone] A No. [id number] IAT (test code = Negative Performed a t [facility] 1185) Laboratory [facility] Blood [place] [address]Toll Free: [phone] A No. [id number] [facility] Screen - ONCE [id number] 21:06:03 Test Item Value Reference Range Interpretation Comments ABO & RH (test code A Positive Performe d at [facility] = 20) Laboratory [facility] Blood [place] [address]Toll Free: [phone] A No. [id number] IAT (test code = Negative Performed a t [facility] 1185) Laboratory [facility] Blood [place] [address]Toll Free: [phone] A No. [id number] [facility] and Screen - ONCE [id number] 21:06:03 Test Item Value Reference Range Interpretation Comments ABO & RH (test code A Positive Performe d at [facility] = 20) Laboratory [facility] Blood [place] [address]Toll Free: [phone] A No. [id number] IAT (test code = Negative Performed a t [facility] 1185) Laboratory [facility] Blood [place] [address]Toll Free: [phone] A No. [id number] [facility] and Screen - ONCE [id number] 21:06:03 Test Item Value Reference Range Interpretation Comments ABO & RH (test code A Positive Performe d at [facility] = 20) Laboratory [facility] [address] [place], [place] [address]Toll Free: [phone] A No. [id number] IAT (test code = Negative Performed a t [facility] 1185) Laboratory [facility] Blood [place] [address]Toll Free: [phone] A No. [id number] [facility] [id number] 21:06:03 Test Item Value Reference Range Interpretation Comments ABO & RH (test code A Positive Performe d at [facility] = 20) Laboratory [facility] Blood [place] [address]Toll Free: [phone] A No. [id number] IAT (test code = Negative Performed a t [facility] 1185) Laboratory [facility] Blood [place] [address]Toll Free: [phone] A No. [id number] [facility] [id number] 21:06:03 Test Item Value Reference Range Interpretation Comments ABO & RH (test code A Positive Performe d at [facility] = 20) Laboratory [facility] Blood [place] [address]Toll Free: [phone] A No. [id number] IAT (test code = Negative Performed a t [facility] 1185) Laboratory [facility] [address] [place], [place] [address]Toll Free: [phone] A No. [id number] [facility] [id number] 21:06:03 Test Item Value Reference Range Interpretation Comments ABO & RH (test code A Positive Performe d at [facility] = 20) Laboratory [facility] Blood [address] [address]Cbky Free: [phone] A No. [id number] IAT (test code = Negative Performed a t [facility] 1185) Laboratory [facility] [address] [place], [place] [address]Toll Free: [phone] A No. [id number] [facility] and Screen - ONCE [id number] 21:06:03 Test Item Value Reference Range Interpretation Comments ABO & RH (test code A Positive Performe d at [facility] = 20) Laboratory [facility] [address] [place], [place] [address]Toll Free: [phone] A No. [id number] IAT (test code = Negative Performed a t [facility] 1185) Laboratory [facility] [address] [place], [place] [address]Toll Free: [phone] A No. [id number] [facility] and Screen - ONCE [id number] 21:06:03 Test Item Value Reference Range Interpretation Comments ABO & RH (test code A Positive Performe d at [facility] = 20) Laboratory [facility] [address] [place], [place] [address]Toll Free: [phone] A No. [id number] IAT (test code = Negative Performed a t [facility] 1185) Laboratory [facility] [address] [place], [place] [address]Toll Free: [phone] A No. [id number] [facility] and Screen - ONCE [id number] 21:06:03 Test Item Value Reference Range Interpretation Comments ABO & RH (test code A Positive Performe d at [facility] = 20) Laboratory [facility] [address] [place] [address]Fsvc Free: [phone] A No. [id number] IAT (test code = Negative Performed a t [facility] 1185) Laboratory [facility] [address] [place], [place] [address]Toll Free: [phone] A No. [id number] [facility] and Screen - ONCE [id number] 21:06:03 Test Item Value Reference Range Interpretation Comments ABO & RH (test code A Positive Performe d at [facility] = 20) Laboratory [facility] Blood [place] [address]Toll Free: [phone] A No. [id number] IAT (test code = Negative Performed a t [facility] 1185) Laboratory [facility] Blood [place] [address]Toll Free: [phone] A No. [id number] [facility] and Screen - ONCE [id number] 21:06:03 Test Item Value Reference Range Interpretation Comments ABO & RH (test code A Positive Performe d at [facility] = 20) Laboratory [facility] Blood [place] [address]Toll Free: [phone] A No. [id number] IAT (test code = Negative Performed a t [facility] 1185) Laboratory [facility] Blood [place] [address]Toll Free: [phone] A No. [id number] [facility] and Screen - ONCE [id number] 21:06:03 Test Item Value Reference Range Interpretation Comments ABO & RH (test code A Positive Performe d at [facility] = 20) Laboratory [facility] [address] [place], [place] [address]Toll Free: [phone] A No. [id number] IAT (test code = Negative Performed a t [facility] 1185) Laboratory [facility] [address] [place], [place] [address]Toll Free: [phone] A No. [id number] [facility] and Screen - ONCE [id number] 21:06:03 Test Item Value Reference Range Interpretation Comments ABO & RH (test code A Positive Performe d at [facility] = 20) Laboratory [facility] [address] [place], [place] [address]Toll Free: [phone] A No. [id number] IAT (test code = Negative Performed a t [facility] 1185) Laboratory [facility] Blood [address] [address]de Free: [phone] A No. [id number] [facility] [id number] 21:06:03 Test Item Value Reference Range Interpretation Comments ABO & RH (test code A Positive Performe d at [facility] = 20) Laboratory [facility] Blood [place] [address]Toll Free: [phone] A No. [id number] IAT (test code = Negative Performed a t [facility] 1185) Laboratory [facility] Blood [place] [address]Toll Free: [phone] A No. [id number] [facility] Confirmation (Lab Only)2022-04-04 20:58:06 Test Item Value Reference Range Interpretation Comments ABO & RH (test code A Positive Performe d at [facility] = 20) Laboratory [facility] Blood [place] [address]Toll Free: [phone] A No. [id number] [facility]irm[facility] (Lab Only)2022-04-04 20:58:06 Test Item Value Reference Range Interpretation Comments ABO & RH (test code A Positive Performe d at [facility] = 20) Laboratory [facility] Blood [address] [address]Qmyq Free: [phone] A No. [id number] [facility] (Lab Only)2022-04-04 20:58:06 Test Item Value Reference Range Interpretation Comments ABO & RH (test code A Positive Performe d at [facility] = 20) Laboratory [facility] Blood [place] [address]Toll Free: [phone] A No. [id number] [facility]irm[facility] (Lab Only)2022-04-04 20:58:06 Test Item Value Reference Range Interpretation Comments ABO & RH (test code A Positive Performe d at [facility] = 20) Laboratory [facility] [address] [place], [place] [address]Toll Free: [phone] A No. [id number] [facility] (Lab Only)2022-04-04 20:58:06 Test Item Value Reference Range Interpretation Comments ABO & RH (test code A Positive Performe d at [facility] = 20) Laboratory [facility] Blood [place] [address]Toll Free: [phone] A No. [id number] [facility]irm[facility] (Lab Only)2022-04-04 20:58:06 Test Item Value Reference Range Interpretation Comments ABO & RH (test code A Positive Performe d at [facility] = 20) Laboratory [facility] Blood [place] [address]Toll Free: [phone] A No. [id number] [facility] (Lab Only)2022-04-04 20:58:06 Test Item Value Reference Range Interpretation Comments ABO & RH (test code A Positive Performe d at [facility] = 20) Laboratory [facility] Blood [place] [address]Toll Free: [phone] A No. [id number] [facility] (Lab Only)2022-04-04 20:58:06 Test Item Value Reference Range Interpretation Comments ABO & RH (test code A Positive Performe d at [facility] = 20) Laboratory [facility] [place], [place] [address]Toll Free: [phone] A No. [id number] [facility] (Lab Only)2022-04-04 20:58:06 Test Item Value Reference Range Interpretation Comments ABO & RH (test code A Positive Performe d at [facility] = 20) Laboratory [facility] [place], [place] [address]Toll Free: [phone] A No. [id number] [facility] (Lab Only)2022-04-04 20:58:06 Test Item Value Reference Range Interpretation Comments ABO & RH (test code A Positive Performe d at [facility] = 20) Laboratory [facility] Blood [place] [address]Toll Free: [phone] A No. [id number] [facility]irm[facility] (Lab Only)2022-04-04 20:58:06 Test Item Value Reference Range Interpretation Comments ABO & RH (test code A Positive Performe d at [facility] = 20) Laboratory [facility] Blood [place] [address]Toll Free: [phone] A No. [id number] [facility]irm[facility] (Lab Only)2022-04-04 20:58:06 Test Item Value Reference Range Interpretation Comments ABO & RH (test code A Positive Performe d at [facility] = 20) Laboratory [facility] Blood [place] [address]Toll Free: [phone] A No. [id number] [facility] (Lab Only)2022-04-04 20:58:06 Test Item Value Reference Range Interpretation Comments ABO & RH (test code A Positive Performe d at [facility] = 20) Laboratory [facility] [address] [place], [place] [address]Toll Free: [phone] A No. [id number] [facility]irm[facility] (Lab Only)2022-04-04 20:58:06 Test Item Value Reference Range Interpretation Comments ABO & RH (test code A Positive Performe d at [facility] = 20) Laboratory [facility] Blood [place] [address]Toll Free: [phone] A No. [id number] [facility] Confirmation (Lab Only)2022-04-04 20:58:06 Test Item Value Reference Range Interpretation Comments ABO & RH (test code A Positive Performe d at [facility] = 20) Laboratory [facility] Blood [place] [address]Toll Free: [phone] A No. [id number] [facility] Confirmation (Lab Only)2022-04-04 20:58:06 Test Item Value Reference Range Interpretation Comments ABO & RH (test code A Positive Performe d at [facility] = 20) Laboratory [facility] Blood [place] [address]Toll Free: [phone] A No. [id number] [facility] Confirmation (Lab Only)2022-04-04 20:58:06 Test Item Value Reference Range Interpretation Comments ABO & RH (test code A Positive Performe d at [facility] = 20) Laboratory [facility] Blood [place] [address]Toll Free: [phone] A No. [id number] [facility] Confirmation (Lab Only)2022-04-04 20:58:06 Test Item Value Reference Range Interpretation Comments ABO & RH (test code A Positive Performe d at [facility] = 20) Laboratory [facility] Blood [place] [address]Toll Free: [phone] A No. [id number] [facility] Confirmation (Lab Only)2022-04-04 20:58:06 Test Item Value Reference Range Interpretation Comments ABO & RH (test code A Positive Performe d at [facility] = 20) Laboratory [facility] [place], [place] [id number] Free: [phone] A No. [id number] [facility] Confirmation (Lab Only)2022-04-04 20:58:06 Test Item Value Reference Range Interpretation Comments ABO & RH (test code A Positive Performe d at [facility] = 20) Laboratory [facility] Blood [place] [address]Toll Free: [phone] A No. [id number] [facility] Confirmation (Lab Only)2022-04-04 20:58:06 Test Item Value Reference Range Interpretation Comments ABO & RH (test code A Positive Performe d at [facility] = 20) Laboratory [facility] Blood [place] [address]Toll Free: [phone] A No. [id number] [facility] Confirmation (Lab Only)2022-04-04 20:58:06 Test Item Value Reference Range Interpretation Comments ABO & RH (test code A Positive Performe d at [facility] = 20) Laboratory [facility] Blood [address] Free: [phone] A No. [id number] [facility] Confirmation (Lab Only)2022-04-04 20:58:06 Test Item Value Reference Range Interpretation Comments ABO & RH (test code A Positive Performe d at [facility] = 20) Laboratory [facility] Blood [place] [address]Toll Free: [phone] A No. [id number] [facility] Confirmation (Lab Only)2022-04-04 20:58:06 Test Item Value Reference Range Interpretation Comments ABO & RH (test code A Positive Performe d at [facility] = 20) Laboratory [facility] Blood [place] [address]Toll Free: [phone] A No. [id number] [facility] [id number] 19:40:46 Test Item Value Reference Range Interpretation Comments PREG SERUM (test code Negative = 4837251353) MEDHAT (test code = MEDHAT) Less than 10 IU/L. ?If low titer or ectopic is suspected, resubmit specimen in 48-72 hours. [facility], [id number] 19:40:46 Test Item Value Reference Range Interpretation Comments PREG SERUM (test code Negative = 9330140821) MEDHAT (test code = MEDHAT) Less than 10 IU/L. ?If low titer or ectopic is suspected, resubmit specimen in 48-72 hours. [facility] [id number] 19:40:46 Test Item Value Reference Range Interpretation Comments PREG SERUM (test code Negative = 4340669615) MEDHAT (test code = MEDHAT) Less than 10 IU/L. ?If low titer or ectopic is suspected, resubmit specimen in 48-72 hours. [facility], [id number] 19:40:46 Test Item Value Reference Range Interpretation Comments PREG SERUM (test code Negative = 8279816909) MEDHAT (test code = MEDHAT) Less than 10 IU/L. ?If low titer or ectopic is suspected, resubmit specimen in 48-72 hours. [facility] [id number] 19:40:46 Test Item Value Reference Range Interpretation Comments PREG SERUM (test code Negative = 2824002826) MEDHAT (test code = MEDHAT) Less than 10 IU/L. ?If low titer or ectopic is suspected, resubmit specimen in 48-72 hours. [facility], [id number] 19:40:46 Test Item Value Reference Range Interpretation Comments PREG SERUM (test code Negative = 3460577353) MEDHAT (test code = MEDHAT) Less than 10 IU/L. ?If low titer or ectopic is suspected, resubmit specimen in 48-72 hours. [facility], [id number] 19:40:46 Test Item Value Reference Range Interpretation Comments PREG SERUM (test code Negative = 6342581261) MEDHAT (test code = MEDHAT) Less than 10 IU/L. ?If low titer or ectopic is suspected, resubmit specimen in 48-72 hours. [facility], [id number] 19:40:46 Test Item Value Reference Range Interpretation Comments PREG SERUM (test code Negative = 9764028317) MEDHAT (test code = MEDHAT) Less than 10 IU/L. ?If low titer or ectopic is suspected, resubmit specimen in 48-72 hours. [facility], [id number] 19:40:46 Test Item Value Reference Range Interpretation Comments PREG SERUM (test code Negative = 3854046715) MEDHAT (test code = MEDHAT) Less than 10 IU/L. ?If low titer or ectopic is suspected, resubmit specimen in 48-72 hours. [facility], [id number] 19:40:46 Test Item Value Reference Range Interpretation Comments PREG SERUM (test code Negative = 4310503303) MEDHAT (test code = MEDHAT) Less than 10 IU/L. ?If low titer or ectopic is suspected, resubmit specimen in 48-72 hours. [facility], [id number] 19:40:46 Test Item Value Reference Range Interpretation Comments PREG SERUM (test code Negative = 2701499001) MEDHAT (test code = MEDHAT) Less than 10 IU/L. ?If low titer or ectopic is suspected, resubmit specimen in 48-72 hours. [facility], [id number] 19:40:46 Test Item Value Reference Range Interpretation Comments PREG SERUM (test code Negative = 1372663646) MEDHAT (test code = MEDHAT) Less than 10 IU/L. ?If low titer or ectopic is suspected, resubmit specimen in 48-72 hours. [facility], [id number] 19:40:46 Test Item Value Reference Range Interpretation Comments PREG SERUM (test code Negative = 4315621635) MEDHAT (test code = MEDHAT) Less than 10 IU/L. ?If low titer or ectopic is suspected, resubmit specimen in 48-72 hours. [facility], [id number] 19:40:46 Test Item Value Reference Range Interpretation Comments PREG SERUM (test code Negative = 9674445607) MEDHAT (test code = MEDHAT) Less than 10 IU/L. ?If low titer or ectopic is suspected, resubmit specimen in 48-72 hours. [facility], [id number] 19:40:46 Test Item Value Reference Range Interpretation Comments PREG SERUM (test code Negative = 4289963277) MEDHAT (test code = MEDHAT) Less than 10 IU/L. ?If low titer or ectopic is suspected, resubmit specimen in 48-72 hours. [facility], [id number] 19:40:46 Test Item Value Reference Range Interpretation Comments PREG SERUM (test code Negative = 2348946580) MEDHAT (test code = MEDHAT) Less than 10 IU/L. ?If low titer or ectopic is suspected, resubmit specimen in 48-72 hours. [facility], [id number] 19:40:46 Test Item Value Reference Range Interpretation Comments PREG SERUM (test code Negative = 0034975370) MEDHAT (test code = MEDHAT) Less than 10 IU/L. ?If low titer or ectopic is suspected, resubmit specimen in 48-72 hours. [facility], [id number] 19:40:46 Test Item Value Reference Range Interpretation Comments PREG SERUM (test code Negative = 9869885557) MEDHAT (test code = MEDHAT) Less than 10 IU/L. ?If low titer or ectopic is suspected, resubmit specimen in 48-72 hours. [facility], [id number] 19:40:46 Test Item Value Reference Range Interpretation Comments PREG SERUM (test code Negative = 7252774486) MEDHAT (test code = MEDHAT) Less than 10 IU/L. ?If low titer or ectopic is suspected, resubmit specimen in 48-72 hours. [facility], [id number] 19:40:46 Test Item Value Reference Range Interpretation Comments PREG SERUM (test code Negative = 1563943598) MEDHAT (test code = MEDHAT) Less than 10 IU/L. ?If low titer or ectopic is suspected, resubmit specimen in 48-72 hours. [facility], [id number] 19:40:46 Test Item Value Reference Range Interpretation Comments PREG SERUM (test code Negative = 5573075478) MEDHAT (test code = MEDHAT) Less than 10 IU/L. ?If low titer or ectopic is suspected, resubmit specimen in 48-72 hours. [facility], [id number] 19:40:46 Test Item Value Reference Range Interpretation Comments PREG SERUM (test code Negative = 9780944251) MEDHAT (test code = MEDHAT) Less than 10 IU/L. ?If low titer or ectopic is suspected, resubmit specimen in 48-72 hours. [facility], [id number] 19:40:46 Test Item Value Reference Range Interpretation Comments PREG SERUM (test code Negative = 8417760140) MEDHAT (test code = MEDHAT) Less than 10 IU/L. ?If low titer or ectopic is suspected, resubmit specimen in 48-72 hours. [facility], [id number] 19:40:46 Test Item Value Reference Range Interpretation Comments PREG SERUM (test code Negative = 9377037164) MEDHAT (test code = MEDHAT) Less than 10 IU/L. ?If low titer or ectopic is suspected, resubmit specimen in 48-72 hours. [facility] WITH [id number] 18:55:21 Test Item Value Reference Range Interpretation Comments WBC (test code = See_Comment H [Automated 9282-2) message] The system which generated this result transmit gómez reference range : 4.30 - 11.10 10*3/?L. The reference range was not used to interpret this result as normal/abnormal . RBC (test code = See_Comment [Automated 092-8) message] The system which generated this result [...] RDW-SD (test code = 43.0 fL 39-49.9 12781-1) RDW-CV (test code = 13.2 % 12-15.5 788-0) PLT (test code = See_Comment [Automated 012-3) message] The system which generated this result transmit gómez reference range : 166 - 358 10*3/ ?L. The reference range was not u sed to interpret th is result as normal/abnormal . MPV (test code = 10.8 fL 9.5-12.9 45379-4) NRBC/100 WBC (test See_Comment [Automat ed code = 9846614009) message] The system which generated this result transmit gómez reference range : 0.0 - 10.0 /100 WBCs. The reference range was not used to interpret this result as normal/abnormal . NRBC x10^3 (test code See_Comment [Auto mated = 9893133638) message] The system which generated this result transmit gómez reference range : 10*3/?L. The reference range was not used to interpret this result as normal/abnormal . GRAN MAT (NEUT) % 82.1 % (test code = 770-8) IMM GRAN % (test code 0.60 % = 6353665252) LYMPH % (test code = 12.4 % 736-9) MONO % (test code = 4.3 % 5905-5) EOS % (test code = 0.1 % 713-8) BASO % (test code = 0.5 % 706-2) GRAN MAT x10^3(ANC) 10.62 10*3/uL 1.88-7.09 H (test code = 8338473923) IMM GRAN x10^3 (test 0.08 10*3/uL 0-0.06 H code = 6406893688) LYMPH x10^3 (test code 1.60 10*3/uL 1.32-3.29 = 731-0) MONO x10^3 (test code 0.56 10*3/uL 0.33-0.92 = 742-7) EOS x10^3 (test code = 0.03-0.39 L 711-2) BASO x10^3 (test code 0.06 10*3/uL 0.01-0.07 = 704-7) Lab Interpretation Abnormal (test code = 72146-3) [facility]. METABOLIC PANEL ([id number])2022-04-04 18:55:21 Test Item Value Reference Range Interpretation Comments NA (test code = 141 mmol/L 135-145 0686470416) K (test code = 4.5 mmol/L 3.5-5 5442724025) CL (test code = 103 mmol/L 98-108 8255336484) CO2 TOTAL (test code = 27 mmol/L 23-31 6553201897) AGAP (test code = 2-16 3660035831) BUN (test code = 14 mg/dL 7-23 4112539391) GLUCOSE (test code = 115 mg/dL 70-110 H 0885766794) CREATININE (test code = 0.62 mg/dL 0.5-1.04 1122401573) TOTAL BILI (test code = 0.7 mg/dL 0.1-1.2 6331444377) CALCIUM (test code = 9.5 mg/dL 8.6-10.6 2752020243) T PROTEIN (test code = 7.3 g/dL 6.3-8.2 8202732446) ALBUMIN (test code = 4.7 g/dL 3.5-5 7346283804) ALK PHOS (test code = 65 U/L 34-122 3888587680) ALTv (test code = 22 U/L 5-35 1742-6) AST(SGOT) (test code = 39 U/L 13-40 2449179662) eGFR (test code = mL/min/1.73m2 5987987873) MEDHAT (test code = MEDHAT) Association of [...] tests). Lab Interpretation Abnormal (test code = 97541-5) [facility] 18:55:21 Test Item Value Reference Range Interpretation Comments LIPASE (test code = 1323432008) 70 U/L 0-220 Lab Interpretation (test code = Normal 72298-9) [facility] 18:55:21 Test Item Value Reference Range Interpretation Comments LIPASE (test code = 0205552353) 70 U/L 0-220 Lab Interpretation (test code = Normal 67270-7) [facility] MET[facility]OLIC PANEL ([id number])2022-04-04 18:55:21 Test Item Value Reference Range Interpretation Comments NA (test code = 141 mmol/L 135-145 8089236091) K (test code = 4.5 mmol/L 3.5-5 8900152360) CL (test code = 103 mmol/L 98-108 9489133597) CO2 TOTAL (test code = 27 mmol/L 23-31 1967541329) AGAP (test code = 2-16 3762176192) BUN (test code = 14 mg/dL 7-23 3095981803) GLUCOSE (test code = 115 mg/dL 70-110 H 9031729937) CREATININE (test code = 0.62 mg/dL 0.5-1.04 4984541351) TOTAL BILI (test code = 0.7 mg/dL 0.1-1.2 4547036446) CALCIUM (test code = 9.5 mg/dL 8.6-10.6 2140414199) T PROTEIN (test code = 7.3 g/dL 6.3-8.2 2580723888) ALBUMIN (test code = 4.7 g/dL 3.5-5 4096387234) ALK PHOS (test code = 65 U/L 34-122 3236641979) ALTv (test code = 22 U/L 5-35 1742-6) AST(SGOT) (test code = 39 U/L 13-40 7572442835) eGFR (test code = mL/min/1.73m2 4835514945) MEDHAT (test code = MEDHAT) Association of [...] tests). Lab Interpretation Abnormal (test code = 64255-6) [facility] 18:55:21 Test Item Value Reference Range Interpretation Comments LIPASE (test code = 1308054467) 70 U/L 0-220 Lab Interpretation (test code = Normal 33810-9) [facility] 18:55:21 Test Item Value Reference Range Interpretation Comments LIPASE (test code = 6998525098) 70 U/L 0-220 Lab Interpretation (test code = Normal 12056-1) [address]10-03 18:55:21 Test Item Value Reference Range Interpretation Comments LIPASE (test code = 1907004190) 70 U/L 0-220 Lab Interpretation (test code = Normal 74793-0) [address]10-03 18:55:21 Test Item Value Reference Range Interpretation Comments LIPASE (test code = 0077017418) 70 U/L 0-220 Lab Interpretation (test code = Normal 99763-0) [address]10-03 18:55:21 Test Item Value Reference Range Interpretation Comments LIPASE (test code = 4470925851) 70 U/L 0-220 Lab Interpretation (test code = Normal 63627-7) [address]10-03 18:55:21 Test Item Value Reference Range Interpretation Comments LIPASE (test code = 2708250555) 70 U/L 0-220 Lab Interpretation (test code = Normal 32359-1) [address]10-03 18:55:21 Test Item Value Reference Range Interpretation Comments LIPASE (test code = 0763136463) 70 U/L 0-220 Lab Interpretation (test code = Normal 14747-2) [address]10-03 18:55:21 Test Item Value Reference Range Interpretation Comments LIPASE (test code = 5776220269) 70 U/L 0-220 Lab Interpretation (test code = Normal 54270-9) [address]10-03 18:55:21 Test Item Value Reference Range Interpretation Comments LIPASE (test code = 0926600058) 70 U/L 0-220 Lab Interpretation (test code = Normal 17776-1) [address]10-03 18:55:21 Test Item Value Reference Range Interpretation Comments LIPASE (test code = 3145767873) 70 U/L 0-220 Lab Interpretation (test code = Normal 39896-1) [address]10-03 18:55:21 Test Item Value Reference Range Interpretation Comments LIPASE (test code = 8412717695) 70 U/L 0-220 Lab Interpretation (test code = Normal 50200-0) [address]10-03 18:55:21 Test Item Value Reference Range Interpretation Comments LIPASE (test code = 6118019095) 70 U/L 0-220 Lab Interpretation (test code = Normal 48943-8) [address]10-03 18:55:21 Test Item Value Reference Range Interpretation Comments LIPASE (test code = 8159756651) 70 U/L 0-220 Lab Interpretation (test code = Normal 65897-7) [address]10-03 18:55:21 Test Item Value Reference Range Interpretation Comments LIPASE (test code = 6041692801) 70 U/L 0-220 Lab Interpretation (test code = Normal 52188-8) [address]10-03 18:55:21 Test Item Value Reference Range Interpretation Comments LIPASE (test code = 9200138293) 70 U/L 0-220 Lab Interpretation (test code = Normal 74238-2) [address]10-03 18:55:21 Test Item Value Reference Range Interpretation Comments LIPASE (test code = 7332630395) 70 U/L 0-220 Lab Interpretation (test code = Normal 25779-5) [address]10-03 18:55:21 Test Item Value Reference Range Interpretation Comments LIPASE (test code = 9577904910) 70 U/L 0-220 Lab Interpretation (test code = Normal 39470-5) [address]10-03 18:55:21 Test Item Value Reference Range Interpretation Comments LIPASE (test code = 2414067284) 70 U/L 0-220 Lab Interpretation (test code = Normal 87122-3) [address]10-03 18:55:21 Test Item Value Reference Range Interpretation Comments LIPASE (test code = 2414879706) 70 U/L 0-220 Lab Interpretation (test code = Normal 16238-6) [address]10-03 18:55:21 Test Item Value Reference Range Interpretation Comments LIPASE (test code = 9968515988) 70 U/L 0-220 Lab Interpretation (test code = Normal 35931-3) [address]10-03 18:55:21 Test Item Value Reference Range Interpretation Comments LIPASE (test code = 4306284313) 70 U/L 0-220 Lab Interpretation (test code = Normal 47339-9) [facility] 18:55:21 Test Item Value Reference Range Interpretation Comments LIPASE (test code = 1045288974) 70 U/L 0-220 Lab Interpretation (test code = Normal 19919-5) [facility]OL[facility] PAN[facility] ([id number])2022-04-01 04:58:46 Test Item Value Reference Range Interpretation Comments NA (test code = 139 mmol/L 135-145 7210675446) K (test code = 5.0 mmol/L 3.5-5 3260620984) CL (test code = 102 mmol/L 98-108 0163967986) CO2 TOTAL (test code 27 mmol/L 23-31 = 9059002026) AGAP (test code = 2-16 8292765137) BUN (test code = 13 mg/dL 7-23 3887065614) GLUCOSE (test code = 104 mg/dL 70-110 2698556298) CREATININE (test code 0.69 mg/dL 0.5-1.04 = 0225913268) TOTAL BILI (test code 0.5 mg/dL 0.1-1.1 = 9058576305) CALCIUM (test code = 9.6 mg/dL 8.6-10.6 2793901750) T PROTEIN (test code 7.2 g/dL 6.3-8.2 = 8379508396) ALBUMIN (test code = 4.6 g/dL 3.5-5 9389384308) ALK PHOS (test code = 60 U/L 34-122 6178187722) ALTv (test code = 15 U/L 5-35 1742-6) AST(SGOT) (test code 26 U/L 13-40 = 3407506543) eGFR (test code = mL/min/1.73m2 1867807250) MEDHAT (test code = MEDHAT) Association of [...] urine or abnormalities in imaging tests). [facility] 04:58:25 Test Item Value Reference Range Interpretation Comments LIPASE (test code = 4108463437) 71 U/L 0-220 Lab Interpretation (test code = Normal 55188-3) [facility] WITH [id number] 04:46:42 Test Item Value Reference Range Interpretation Comments WBC (test code = See_Comment [Automated message] 6690-2) The system [employer] generated this result transmitted ref erence range: 4.30 - 1 1.10 10*3/?L. The re ference range was not u sed to interpret this result as normal/abnor mal. RBC (test code = See_Comment [Automated message] 789-8) The system [employer] generated this result transmitted ref erence range: [...] RDW-SD (test code 42.5 fL 39-49.9 = 49253-6) RDW-CV (test code 13.2 % 12-15.5 = 788-0) PLT (test code = See_Comment [Automated message] 777-3) The system [employer] generated this result transmitted ref erence range: 166 - 35 8 10*3/?L. The re ference range was not u sed to interpret this result as normal/abnor mal. MPV (test code = 10.4 fL 9.5-12.9 32517-8) NRBC/100 WBC (test See_Comment [Automat ed message] code = 7137318723) The syste m which generated this result transmitted ref erence range: 0.0 - 10 .0 /100 WBCs. The refer ence range was not u sed to interpret this result as normal/abnor mal. NRBC x10^3 (test See_Comment [Automated message] code = 9992280946) The syste m which generated this result transmitted ref erence range: 10*3/?L. The reference range was not used to interpr et this result as normal/abnormal . GRAN MAT (NEUT) % 69.5 % (test code = 770-8) IMM GRAN % (test 0.40 % code = 2299471368) LYMPH % (test code 23.3 % = 736-9) MONO % (test code 5.3 % = 5905-5) EOS % (test code = 0.7 % 713-8) BASO % (test code 0.8 % = 706-2) GRAN MAT 5.73 10*3/uL 1.88-7.09 x10^3(ANC) (test code = 8444072303) IMM GRAN x10^3 0.03 10*3/uL 0-0.06 (test code = 1016347910) LYMPH x10^3 (test 1.92 10*3/uL 1.32-3.29 code = 731-0) MONO x10^3 (test 0.44 10*3/uL 0.33-0.92 code = 742-7) EOS x10^3 (test 0.06 10*3/uL 0.03-0.39 code = 711-2) BASO x10^3 (test 0.07 10*3/uL 0.01-0.07 code = 704-7) [facility]OW[facility] [id number] 04:37:00 Test Item Value Reference Range Interpretation Comments POCT PREG (test code = 1605) negative Lab Interpretation (test code = Normal 83766-8) [facility] [id number] 04:37:00 Test Item Value Reference Range Interpretation Comments POCT PREG (test code = 1605) negative Lab Interpretation (test code = Normal 59538-9) [facility], [id number] 14:05:00 Test Item Value Reference Range Interpretation Comments Coronavirus NAAT, COVD19 SARS results, (test code = including Patient [id number]) Name, or MRN, were Coronavirus NAAT, COVD19 ical-devices/emergenc (test code = r-tst-lczvrnjqjeuqil. TEPDEYH3OENY7.1) SARS-CoV-2 NAAT Result: Positive by RT-PCR A (test code = SARS-CoV-2 NAAT Result:) COVID-19 Status: AsymptomaticHCG, Urine Qual (LAB)2021-07-09 14:05:00 Test Item Value Reference Range Interpretation Comments HCG, Urine, Qual (test code = HCGU) Negative Negative Drug Screen,[id number] 14:05:00 Test Item Value Reference Range Interpretation [...] Negative code = UPROP) UA, Urinalysis w [id number] 14:05:00 Test Item Value Reference Range Interpretation Comments Color,Urine (test code = Yellow Yellow UCOL) Clarity,Urine (test code = Clear Clear UCLAR) Ph, Urine (test code = UPH) 8.5 5.0-8.0 H Specific [place],Urine 1.020 1.005-1.030 N (test code = USG) [...] Seen A UBACT) Complete Blood Count Auto [id number] 13:20:00 Test Item Value Reference Range Interpretation [...] code = NRBCP) 0 % Comprehensive Metabolic [id number] 13:20:00 Test Item Value Reference Range Interpretation [...] 72 U/L 46-116 N = ALP) Ethanol [id number] 13:20:00 Test Item Value Reference Range Interpretation [...] = HCGU) Negative Negative UA, Urinalysis Rflx Cult/[id number] 00:20:00 Test Item Value Reference Range Interpretation Comments Color,Urine (test code = Yellow Yellow UCOL) Clarity,Urine (test code = Clear Clear UCLAR) PH,Urine (test code = 7.5 5.5-8.5 UPH.XX) Specific [place],Urine 1.020 1.005-1.030 N (test code = USG) [...] cells/uL Negative (test code = ULEU) Urine [id number] 00:20:00 Test Item Value Reference Range Interpretation Comments RBC,Urine (test code = URBC.XX) 0-5 /HPF None Seen WBC,Urine (test code = UWBC.XX) 6-10 /HPF None Seen A Squamous Epithelial Cell,Urine 74-200 /HPF None Seen A (test code = USQEPI.XX) Bacteria,Urine (test code = Moderate /HPF None Seen A UBACT) Drug Screen,[id number] 00:20:00 Test Item Value Reference Range Interpretation [...] code = UPROP) Complete Blood Count Auto [id number] 00:09:00 Test Item Value Reference Range Interpretation [...] code = NRBCP) 0 % Comprehensive Metabolic [id number] 00:09:00 Test Item Value Reference Range Interpretation [...] 83 U/L 46-116 N = ALP) Ethanol [id number] 00:09:00 Test Item Value Reference Range Interpretation Comments Ethanol (test code < 3 mg/dL The pharm acological = ETOH) response to blo od alcohol levels mayvary from individual to i ndividual. The fatal ezio ntrationhas been reported t o be >400mg/dL. Coronavirus PCR, COVID19 [id number] 00:08:00 Test Item Value Reference Range Interpretation Comments Coronavirus PCR, For use under Emergency COVID19 Rapid (test Use Authorization (EUA) code = SARSCOV2) only. Coronavirus PCR, Reference Range: COVID19 Rapid (test Negative code = SLPFKTG69.1) SARS-CoV-2 PCR Result: Negative by RT-PCR (test code = SARS-CoV-2 PCR Result:) COVID-19 Status: AsymptomaticCARBAMAZEPHINE (TEGRETOL)2020-09-26 08:42:00 Test Item Value Reference Range Interpretation Comments CARBAMAZPN (test code = 98A) 19.3 ug/mL 4.0-12.0 HH CARBAMAZEPHINE (TEGRETOL)2020-09-26 05:04:00 Test Item Value Reference Range Interpretation Comments CARBAMAZPN (test code = 98A) 20.1 ug/mL 4.0-12.0 HH URINALYSIS WITH [id number] 02:45:00 Test Item Value Reference Range Interpretation [...] code = USPERM) /HPF NONE DRUGS OF [id number] 02:43:00 Test Item Value Reference Range Interpretation [...] the FDA and the [employer] [place] [employer] (CAP) are more stringent than those required for this test. Therefore, the result should be interpreted with caution and close attention to other clinical and epidemiological data PRO TIME AND [id number] 00:51:00 Test Item Value Reference Range Interpretation [...] Heparin. Order Code is ANTI-XA COMPREHENSIVE METABOLIC [id number] 00:47:00 Test Item Value Reference Range Interpretation [...] as normal/abnormal . GFR 154 See_Comment [Automated DOMINICAN (test mL/min/1.73m\\S\\2 message] The code = GFRAA) [...] to interpret this result as normal/abnormal . [id number] 00:47:00 Test Item Value Reference Range Interpretation Comments ACETAMINPH (test code = 94M) 3.6 ug/mL 10.0-30.0 L CARDIAC [id number] 00:47:00 Test Item Value Reference Range Interpretation Comments TROPONIN I (test code = A84) <0.015 ng/mL 0.000-0.045 ALCOHOL BLOOD (ETOH)2020-09-26 00:44:00 Test Item Value Reference Range Interpretation Comments ETOH (test code = ETHANOL HALC) The result is to be used only for medical purposes ALCOHOL (test <10 mg/dL See_Comment [Automated me ssage] code = 56A) The system [employer] generated this result transmit gómez reference range : <=10. The refer ence range was not u sed to interpret th is result as normal/abnormal . [id number] 00:42:00 Test Item Value Reference Range Interpretation Comments SALICYLATE (test code = 94B) <1.7 mg/dL 2.8-20.0 L SERUM [id number] 00:38:00 Test Item Value Reference Range Interpretation [...]
--- NOTE | 2022-08-29 18:54 | ER ---
Nurse's Notes [facility] Name: Vanda Pompa Age: 22 yrs Sex: Female : 2000 Arrival Date: 08/29/2022 Time: 17:51 Bed 17 Private MD: Diagnosis: Encounter for examination and observation for unspecified reason Presentation: 08/29 17:52 Chief complaint: Patient states: Called police for SI. History of same, ll1 anxiety/depression. Takes Strattera and labetalol. Coronavirus screen: Vaccine status: Patient reports receiving the 2nd dose of the covid vaccine. Client denies travel out of the [place] in the last 14 days. At this time, the client does not indicate any symptoms associated with coronavirus-19. Ebola Screen: Patient denies travel to an Ebola-affected area in the 21 days before illness onset. Initial Sepsis Screen: Does the patient meet any 2 criteria? No. Patient's initial sepsis screen is negative. Does the patient have a suspected source of infection? No. Patient's initial sepsis screen is negative. Risk Assessment: Do you want to hurt yourself or someone else? Patient reports no desire to harm self or others. Onset of symptoms is unknown. 17:52 Method Of Arrival: EMS ll1 17:52 Acuity: FREDY 2 ll1 Triage Assessment: 19:12 General: Appears in no apparent distress. comfortable, Behavior is calm, cooperative. 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 - Social history:: Smoking status: Patient denies any tobacco usage or history of. Patient/guardian denies using. Screenin:14 [facility] ED Fall Risk Assessment (Adult) History of falling in the last 3 months, db including since admission No falls in past 3 months (0 pts) Confusion or Disorientation No (0 pts) Intoxicated or Sedated No (0 pts) Impaired Gait No (0 pts) Mobility Assist Device Used No (0 pt) Altered Elimination No (0 pt) Score/Fall Risk Level 0 - 2 = Low Risk Oriented to surroundings, Maintained a safe environment. Abuse screen: Denies threats or abuse. Denies injuries from another. Nutritional screening: No deficits noted. Tuberculosis screening: No symptoms or risk factors identified. Assessment: 17:50 Reassessment: Patient appears in no apparent distress at this time. Patient and/or db family updated on plan of care and expected duration. Pain level reassessed. Patient is alert, oriented x 3, equal unlabored respirations, skin warm/dry/pink. Patient denies SI during my assessment. States was feeling anxious and so called 911 for SI. Patient states took medication and now feels better. Denies thoughts of wanting to hurt self. Jay Jay Page provider notified. Patient states symptoms have improved. General: Appears in no apparent distress. comfortable, Behavior is calm, cooperative. Pain: Denies pain. Neuro: Level of Consciousness is awake, alert, obeys commands, Oriented to person, place, time, situation. 18:37 Reassessment: Patient appears in no apparent distress at this time. Patient and/or db family updated on plan of care and expected duration. Pain level reassessed. Patient is alert, oriented x 3, equal unlabored respirations, skin warm/dry/pink. Patient states feeling better. Patient states symptoms have improved. 18:53 Reassessment: Patient appears in no apparent distress at this time. Patient and/or db family updated on plan of care and expected duration. Pain level reassessed. Patient is alert, oriented x 3, equal unlabored respirations, skin warm/dry/pink. 19:12 Reassessment: Patient appears in no apparent distress at this time. Patient and/or db family updated on plan of care and expected duration. Pain level reassessed. Patient is alert, oriented x 3, equal unlabored respirations, skin warm/dry/pink. Psych: 18:03 [place] Suicide Severity Screening: In the past month, have you wished you were db or wished you could go to sleep and not wake up? Patient responds "No." "In the past month, have you actually had any thoughts of killing yourself?" Patient responds "no." "In your lifetime, have you ever done anything, started to do anything, or prepared to do anything to end your life?" Patient responds "yes." Patient reports suicidal intent within 3 past months. Subjective: Patient's mood is PLEASANT Delusions are denied, Hallucinations are denied Having thoughts of patient denies SI. Objective: Patient is cooperative, Speech is normal, Affect is appropriate. Interventions: Removed personal items and placed in bag. Patient placed in hospital gown. Searched person for dangerous items. Patient reassessed during use of restraints. Patient is physically safe. Safety Checks: Personal items have been removed. Door is open. Pt denies substance abuse. 19:13 Commitment: patient denies SI. Complains of anxiety. db Vital Signs: 18:12 BP 90 / 78; Pulse 98; Resp 16; Temp 98.7(O); Pulse Ox 98% ; Weight 61.23 kg; Height 5 db ft. 3 in. (160.02 cm); 18:52 BP 107 / 75; Pulse 86; Resp 16; Pulse Ox 99% on R/A; iw 18:53 BP 107 / 75; Pulse 87; Resp 18; Pulse Ox 99% on R/A; db 18:12 Body Mass Index 23.91 (61.23 kg, 160.02 cm) db ED Course: 17:51 Patient arrived in ED. ll1 17:51 Arm band placed on Patient placed in an exam room, on a stretcher. ll1 17:52 April Stokes RN is Primary Nurse. db 17:52 Dick Nathan PA is PHCP. cp 17:52 Aston López DO is Attending Physician. cp 17:53 Triage completed. ll1 18:15 No provider procedures requiring assistance completed. db 19:13 Patient did not have IV access during this emergency room visit. db 19:14 Patient has correct armband on for positive identification. Bed in low position. Call db light in reach. Side rails up X 1. Warm blanket given. Administered Medications: No medications were administered Medication: 18:37 VIS not applicable for this client. db Outcome: 18:53 Discharge ordered by MD. cp 19:13 Discharged to home ambulatory, with family. db 19:13 Condition: stable 19:13 Discharge instructions given to patient, Instructed on discharge instructions, follow up and referral plans. patient signed safety plan given a copy and placed on chart. 19:14 Patient left the ED. db Signatures: Staci Damico RN RN iw Dick Nathan PA PA cp Lewis, Lynsay, RN RN ll1 Stokes, April, RN RN db
--- NOTE | 2022-08-29 18:54 | EDPHYS ---
Physician Documentation [facility] Name: Vanda Pompa Age: 22 yrs Sex: Female : 2000 Arrival Date: 08/29/2022 Time: 17:51 Bed 17 Private MD: ED Physician Aston López HPI: 08/29 18:05 This 22 yrs old Female presents to ER via EMS with complaints of Anxiety, Suicidal cp Ideation. 18:05 Past psychiatric history: Prior diagnosis: bipolar disorder, depression, anxiety. cp Patient is a 22 y/o female who presents to ED by EMS after calling for suicidal thoughts. Patient reports taking prescribed medication and while en route with EMS, seeing a cat and now denies any suicidal and/or homicidal ideations. Patient reports anxiety as cause of suicidal thoughts. 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 - Social history:: Smoking status: Patient denies any tobacco usage or history of. Patient/guardian denies using. ROS: 18:10 Constitutional: Negative for body aches, chills, fever, poor PO intake. cp 18:10 Cardiovascular: Negative for chest pain, edema, palpitations. cp 18:10 Respiratory: Negative for cough, shortness of breath, wheezing. 18:10 Abdomen/GI: Negative for abdominal pain, vomiting, diarrhea, constipation. 18:10 Neuro: Negative for altered mental status, dizziness, headache, numbness, syncope, weakness. 18:10 Psych: Positive for anxiety, Negative for auditory hallucinations, visual hallucinations, homicidal ideation, suicide gesture, current suicidal ideation. 18:10 All other systems are negative. Exam: 18:15 Constitutional: The patient appears in no acute distress, alert, awake, cp non-diaphoretic, non-toxic, well developed, well nourished. 18:15 Head/Face: Normocephalic, atraumatic. cp 18:15 Eyes: Periorbital structures: appear normal, Conjunctiva: normal, no exudate, no injection, Sclera: no appreciated abnormality, Lids and lashes: appear normal, bilaterally. 18:15 ENT: External ear(s): are unremarkable, Nose: is normal, Mouth: Lips: moist, Oral mucosa: moist, Posterior pharynx: Airway: no evidence of obstruction, patent. 18:15 Chest/axilla: Inspection: normal. 18:15 Cardiovascular: Rate: normal, Rhythm: regular. 18:15 Respiratory: the patient does not display signs of respiratory distress, Respirations: normal, no use of accessory muscles, no retractions, labored breathing, is not present. 18:15 Abdomen/GI: Exam negative for discomfort, distension, guarding, Inspection: abdomen appears normal. 18:15 Neuro: Orientation: to person, place \T\ time. Mentation: is normal, Motor: moves all fours, strength is normal. 18:15 Psych: Behavior/mood is pleasant, cooperative, Affect is calm, Patient has no thoughts/intents to harm self or others. Judgement / Insight is normal. Delusions/hallucinations are not present. Vital Signs: 18:12 BP 90 / 78; Pulse 98; Resp 16; Temp 98.7(O); Pulse Ox 98% ; Weight 61.23 kg; Height 5 db ft. 3 in. (160.02 cm); 18:52 BP 107 / 75; Pulse 86; Resp 16; Pulse Ox 99% on R/A; iw 18:53 BP 107 / 75; Pulse 87; Resp 18; Pulse Ox 99% on R/A; db 18:12 Body Mass Index 23.91 (61.23 kg, 160.02 cm) db MDM: 18:01 Patient medically screened. cp 18:10 Differential diagnosis: depression, suicidal ideation, anxiety. cp 18:52 Data reviewed: vital signs, nurses notes. cp 18:52 Consideration of Admission/Observation Escalation of care including cp admission/observation considered. Test considered but Not performed: EKG: for psych screening. Labs: toxic screen. Counseling: I had a detailed discussion with the patient and/or guardian regarding: the historical points, exam findings, and any diagnostic results supporting the discharge/admit diagnosis, to return to the emergency department if symptoms worsen or persist or if there are any questions or concerns that arise at home. 08/29 18:37 Order name: Vital Signs: please update to include blood pressure; Complete Time: 18:52 cp Administered Medications: No medications were administered Disposition: 19:11 Co-signature as Attending Physician, Aston López DO I was immediately available on-site ms3 in the Emergency Department for consultation in the care of the patient. Disposition Summary: 08/29/22 18:53 Discharge Ordered Location: Home cp Problem: an ongoing problem cp Symptoms: have improved cp Condition: Stable cp Diagnosis - Encounter for examination and observation for unspecified reason cp Followup: cp - With: Private Physician - When: 1 - 2 days - Reason: Recheck today's complaints Discharge Instructions: - Discharge Summary Sheet cp - Managing Depression, Adult cp - Managing Anxiety, Adult cp Forms: - Medication Reconciliation Form cp - Thank You Letter cp - Antibiotic Education cp - Prescription Opioid Use cp Signatures: Dick Nathan PA PA cp Lewis, Lynsay, RN RN ll1 Aston López DO DO ms3 April Stokes RN RN db
[2022-08-29 19:44] VITALS: TEMP 98.7
[2022-08-29 19:46] VITALS: BP 107/75; O2SAT 99
== END 2022-08-29 19:14 | disposition home or self-care (01) ==
LOC: ER 17:50
DX: R45.851 Suicidal ideations (principal); F31.9 Bipolar disorder, unspecified

== ENCOUNTER 2022-09-08 01:21 | Emergency (ER) | payer OTHER ==
--- OUTSIDE RECORDS SUMMARY | 2022-09-08 01:48 | XMS REPORT | Continuity of Care Document ---
:2000 Author Organization [facility] t Address [address] [place] [address] Care Team Providers Name Role Phone Pcp, [...] Nolvia Husain MD Attending Clinician Doctor Unassigned, [place] Attending Clinician Unavailable Vignesh Mack MD Attending Clinician Vaccine, [facility] Attending Clinician Unavailable VIGNESH MACK Attending [...] Attending Clinician BURKE BECKETT Attending Clinician Unavailable Nicole ROBERTS, Paolo Zelaya Attending Clinician Tim Holguin MD Attending Clinician TIM HOLGUIN Attending Clinician Unavailable Immunization, [facility] Attending Clin ician Unavailable CHELSY ROMO Attending Clinician Unavailable Juan ROBERTS, Gio De La Cruz Attending Clinician GIO MARTINEZ Attending Clinician Unavailable [...] Number Effective Date Expiration Date Chidi nice [facility] MEDICAID STAR [id number] 2021 00:00:00 [facility] [id number] 2016 [facility] MEDICAID 00:00:00 Problems Condition Condition Condition Status [...] in partial 00:00: g of this [place] remission, remission, 00 note Me dical most most might be Branch 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 Diagnosis per recent hospitali zaiton Abnormal Abnormal Disease Active 2019-07 Unive rs uterine uterine 0-20 ity of bleeding bleeding 00:00: [place] (AUB) (AUB) 00 Medical Branch SANDRA SANDRA Disease Active Univers (generaliz (generaliz 1-11 it y of ed anxiety ed [place] disorder[place] disorder[place] 00 [facility] Branch Attention Attention Disease Active 2008-07 Overview: Univers deficit deficit 2-22 [place] ity o f hyperactiv hyperactiv 00:00: g of this [place] ity ity 00 note Medical disorder disorder might be Bran ch (ADHD) (ADHD) different from the original. 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 Allergies, Adverse Reactions, Alerts Allergy Allergy Status Severity Reaction(s) Onset Inactive Treating Comm ents Source Name Type Date Date Clinician No Known DA Active U [facility] 07-15 [place] [facility] 00:[facility]: [facility] 00 are [place] No Known DA Active U [facility] 07-04 [place] [facility] 00:[facility] No Known DA Active U [facility] Drug 07-09 Allergie 00:00: s 00 No Known DA Active U 2020-07 [facility] 07-25 Allergie 00:00: s 00 Unable DA Active U 2020-07 [facility] to 07-25 Assess 00:00: 00 No Known DA Active [facility] s NO KNOWN Drug Active Univers ALLERGIE Class ity of S [facility] Family History Family Member Diagnosis Comments Start Date Stop Date Source Natural brother Psychiatry Universit y of [facility] Natural father Alcohol abuse Univers ity [facility] Natural father Substance abuse Unive rsity of [facility] Natural mother Psychiatry [facility] Social History Social Habit Start Date Stop Date Quantity Comments Source History SDOH University o f Alcohol Comment [place] Med ical Branch Alcohol intake 2022-08-23 2022-08-23 Lifetime University of 00:00:00 00:00:00 non-drinker [facility] (finding) Branch Exposure to 2022-08-12 2022-08-22 Not sure [facility] SARS-CoV-2 00:00:00 09:43:00 [place] Medical (event) Branch Tobacco use and 2022-01-17 2022-01-17 Smokeless tobacco Un iversity of exposure 00:00:00 00:00:00 non-user [place] [facility] Branch History [facility] 2020-04-20 2020-04-20 1 University o f Alcohol Frequency 00:00:00 00:00:00 [place] M edical Branch History SDOH 2020-04-20 2020-04-20 99 University o f Alcohol Std 00:00:00 00:00:00 [place] Medical Drinks Branch History [facility] 2020-04-20 2020-04-20 1 University o f Alcohol Binge 00:00:00 00:00:00 [place] Medic al Branch Sex Assigned At [birth year] Universit y of 00:00:00 00:00:00 [facility] Smoking Status Start Date Stop Date Source Never smoked tobacco [facility] Medications Ordered Filled Start Stop Current Ordering Indication Dosage Frequency Signature Comments Components Source Medication Medication Date Date Medication? Clinician (SIG) Name Name ARIPiprazol Yes [id number] 15mg Take 1 Univers e 15 mg 2-20 tablet by ity of tablet 00:00: mouth in [place] 00 the Medical morning. Branch lamoTRIgine 0 Yes [id number] 25mg Take 1 Univers 25 mg 2-20 tablet by ity of tablet 00:00: mouth in [place] the Medical morning. Branch ARIPiprazol 0 Yes [id number] 15mg Take 1 Univers e 15 mg 2-20 tablet by ity of tablet 00:00: mouth in [place] 00 the Medical morning. Branch lamoTRIgine 2022-0 Yes [id number] 25mg Take 1 Univers 25 mg 2-20 tablet by ity of tablet 00:00: mouth in [place] the Medical morning. Branch ARIPiprazol 2022-0 Yes [id number] 15mg Take 1 Univers e 15 mg 2-20 tablet by ity of tablet 00:00: mouth in [place] 00 the Medical morning. Branch lamoTRIgine 2022-0 Yes [id number] 25mg Take 1 Univers 25 mg 2-20 tablet by ity of tablet 00:00: mouth in [place] 00 the Medical morning. Branch naltrexone 2022-0 2022- Yes [id number] 50mg Take 1 Univers 50 mg 2-20 05-22 tablet by ity of tablet 00:00: 04:59 mouth in [place] 00 :00 the Medical morning Branch for 90 days. naltrexone 2023-0 2023- Yes [id number] 50mg Take 1 Univers 50 mg 2-20 05-22 tablet by ity of tablet 00:00: 04:59 mouth in [place] 00 :00 the Medical morning Branch for 90 days. naltrexone 3-0 2023- Yes [id number] 50mg Take 1 Univers 50 mg 2-20 05-22 tablet by ity of tablet 00:00: 04:59 mouth in [place] 00 :00 the Medical morning Branch for 90 days. atomoxetine 2022-0 2023- Yes [id number] 80mg Take 1 Univers 80 mg 2-20 04-22 capsule by ity of capsule 00:00: 04:59 mouth in [place] 00 :00 the Medical morning Branch for 60 days. atomoxetine 2022-0 2022- Yes [id number] 80mg Take 1 Univers 80 mg 2-20 04-22 capsule by ity of capsule 00:00: 04:59 mouth in [place] 00 :00 the Medical morning Branch for 60 days. atomoxetine 2022-0 2022- Yes [id number] 80mg Take 1 Univers 80 mg 2-20 04-22 capsule by ity of capsule 00:00: 04:59 mouth in [place] 00 :00 the Medical morning Branch for 60 days. hydrOXYzine 2023-0 Yes [id number] 25mg Take 1 Univers 25 mg 1-23 tablet by ity of tablet 00:00: mouth [place] 00 every 6 Medical (six) Branch hours as needed for Anxiety. hydrOXYzine 2023-0 Yes [id number] 25mg Take 1 Univers 25 mg 1-23 tablet by ity of tablet 00:00: mouth [place] 00 every 6 Medical (six) Branch hours as needed for Anxiety. hydrOXYzine 2023-0 Yes [id number] 25mg Take 1 Univers 25 mg 1-23 tablet by ity of tablet 00:00: mouth [place] 00 every 6 Medical (six) Branch hours as needed for Anxiety. hydrOXYzine 2023-0 Yes [id number] 25mg Take 1 Univers 25 mg 1-23 tablet by ity of tablet 00:00: mouth [place] 00 every 6 Medical (six) Branch hours as needed for Anxiety. hydrOXYzine 2023-0 Yes [id number] 25mg Take 1 Univers 25 mg 1-23 tablet by ity of tablet 00:00: mouth [place] 00 every 6 Medical (six) Branch hours as needed for Anxiety. hydrOXYzine 3-0 Yes [id number] 25mg Take 1 Univers 25 mg 1-23 tablet by ity of tablet 00:00: mouth [place] 00 every 6 Medical (six) Branch hours as needed for Anxiety. hydrOXYzine 2022-0 Yes [id number] 25mg Take 1 Univers 25 mg 1-23 tablet by ity of tablet 00:00: mouth [place] 00 every 6 Medical (six) Branch hours as needed for Anxiety. lamoTRIgine 2022-0 Yes [id number] 25mg Take 1 Univers 25 mg 1-11 tablet by ity of tablet 00:00: mouth in [place] 00 the Medical morning. Branch lamoTRIgine 2022-0 Yes [id number] 25mg Take 1 Univers 25 mg 1-11 tablet by ity of tablet 00:00: mouth in [place] 00 the Medical morning. Branch lamoTRIgine 2022-0 Yes [id number] 25mg Take 1 Univers 25 mg 1-11 tablet by ity of tablet 00:00: mouth in [place] 00 the Medical morning. Branch lamoTRIgine 2022-0 Yes [id number] 25mg Take 1 Univers 25 mg 1-11 tablet by ity of tablet 00:00: mouth in [place] 00 the Medical morning. Branch lamoTRIgine 2022-0 Yes [id number] 25mg Take 1 Univers 25 mg 1-11 tablet by ity of tablet 00:00: mouth in [place] 00 the Medical morning. Branch lamoTRIgine 2022-0 2022- No [id number] 25mg Take 1 Univers 25 mg 1-11 02-20 tablet by ity of tablet 00:00: 00:00 mouth in [place] 00 :00 the Medical morning. Branch lamoTRIgine 2022-0 2022- No [id number] 25mg Take 1 Univers 25 mg 1-11 02-20 tablet by ity of tablet 00:00: 00:00 mouth in [place] 00 :00 the Medical morning. Branch lamoTRIgine 2022-0 2022- No [id number] 25mg Take 1 Univers 25 mg 1-11 02-20 tablet by ity of tablet 00:00: 00:00 mouth in [place] 00 :00 the Medical morning. Branch ARIPiprazol 2022-0 2022- Yes [id number] 15mg Take 1 Univers e 15 mg 1-10 04-11 tablet by ity of tablet 00:00: 04:59 mouth in [place] 00 :00 the Medical morning Branch for 90 days. ARIPiprazol 2022- Yes [id number] 15mg Take 1 Univers e 15 mg 1-10 04-11 tablet by ity of tablet 00:00: 04:59 mouth in [place] 00 :00 the Medical morning Branch for 90 days. ARIPiprazol 2022- Yes [id number] 15mg Take 1 Univers e 15 mg 1-10 04-11 tablet by ity of tablet 00:00: 04:59 mouth in [place] 00 [facility] for 90 days. ARIPiprazol 2022- Yes [id number] 15mg Take 1 Univers e 15 mg 1-10 04-11 tablet by ity of tablet 00:00: 04:59 mouth in [place] 00 :00 [facility] Branch for 90 days. ARIPiprazol 2022- Yes [id number] 15mg Take 1 Univers e 15 mg 1-10 04-11 tablet by ity of tablet 00:00: 04:59 mouth in [place] 00 :00 [facility] morning [place] for 90 days. ARIPiprazol 2022- Yes [id number] 15mg Take 1 Univers e 15 mg 1-10 04-11 tablet by ity of tablet 00:00: 04:59 mouth in [place] 00 :00 [facility] morning [place] for 90 days. ARIPiprazol 2022- No [id number] 15mg Take 1 Univers e 15 mg 1-10 02-20 tablet by ity of tablet 00:00: 00:00 mouth in [place] 00 :00 [facility] morning [place] for 90 days. ARIPiprazol 2022- No [id number] 15mg Take 1 Univers e 15 mg 1-10 02-20 tablet by ity of tablet 00:00: 00:00 mouth in [place] 00 :00 [facility] morning Branch for 90 days. ARIPiprazol 2022- No [id number] 15mg Take 1 Univers e 15 mg 1-10 02-20 tablet by ity of tablet 00:00: 00:00 mouth in [place] 00 :00 [facility] morning Branch for 90 days. ARIPiprazol 2021-07- No [id number] 300mg Univers e (ABILIFY 2-15 12-15 ity of MAINTENA) 17:45: 16:48 [place] injection 00 :00 Medical SSRR 300 mg Branch ARIPiprazol 2021-07- No [id number] 300mg Univers e (ABILIFY 2-15 12-15 ity of MAINTENA) 17:45: 16:48 [place] injection 00 :00 Medical SSRR 300 mg Branch ARIPiprazol 2021-07- No [id number] 300mg Univers e (ABILIFY 2-15 12-15 ity of MAINTENA) 17:45: 16:48 [place] injection 00 :00 Medical SSRR 300 mg Branch ARIPiprazol 2021-07- No [id number] 300mg Univers e (ABILIFY 2-15 12-[address] [facility] 17:45: 16:48 [place] injection 00 :00 Medical SSRR 300 mg Branch hydrOXYzine 2021-07 Yes [id number] 25mg Take 1 Univers 25 mg 2-12 tablet by ity of tablet 00:00: mouth [place] 00 every 6 Medical (six) Branch hours as needed for Anxiety. lamoTRIgine 2021-07 Yes [id number] 25mg Take 1 Univers 25 mg 2-12 tablet by ity of tablet 00:00: mouth in [place] 00 the Medical morning. Branch naltrexone 2021-07 Yes [id number] 50mg Take 1 Uni vers 50 mg 2-12 tablet by ity of tablet 00:00: mouth in [place] 00 the Medical morning. Branch hydrOXYzine 2021-07 Yes [id number] 25mg Take 1 Univers 25 mg 2-12 tablet by ity of tablet 00:00: mouth [place] 00 every 6 Medical (six) Branch hours as needed for Anxiety. lamoTRIgine 2021-07 Yes [id number] 25mg Take 1 Univers 25 mg 2-12 tablet by ity of tablet 00:00: mouth in [place] 00 the Medical morning. Branch naltrexone 2021-07 Yes [id number] 50mg Take 1 Uni vers 50 mg 2-12 tablet by ity of tablet 00:00: mouth in [place] 00 the Medical morning. Branch hydrOXYzine 2021-07 Yes [id number] 25mg Take 1 Univers 25 mg 2-12 tablet by ity of tablet 00:00: mouth [place] 00 every 6 Medical (six) Branch hours as needed for Anxiety. lamoTRIgine 2021-07 Yes [id number] 25mg Take 1 Univers 25 mg 2-12 tablet by ity of tablet 00:00: mouth in [place] 00 the Medical morning. Branch naltrexone 2021- Yes [id number] 50mg Take 1 Uni vers 50 mg 2-12 tablet by ity of tablet 00:00: mouth in [place] 00 the Medical morning. Branch hydrOXYzine 2021- Yes [id number] 25mg Take 1 Univers 25 mg 2-12 tablet by ity of tablet 00:00: mouth [place] 00 every 6 Medical (six) Branch hours as needed for Anxiety. lamoTRIgine 2021-07 Yes [id number] 25mg Take 1 Univers 25 mg 2-12 tablet by ity of tablet 00:00: mouth in [place] 00 the Medical morning. Branch naltrexone 2021-07 Yes [id number] 50mg Take 1 Uni vers 50 mg 2-12 tablet by ity of tablet 00:00: mouth in [place] 00 the Medical morning. Branch hydrOXYzine 2021-07 Yes [id number] 25mg Take 1 Univers 25 mg 2-12 tablet by ity of tablet 00:00: mouth [place] 00 every 6 Medical (six) Branch hours as needed for Anxiety. lamoTRIgine 2021-07 Yes [id number] 25mg Take 1 Univers 25 mg 2-12 tablet by ity of tablet 00:00: mouth in [place] 00 the Medical morning. Branch naltrexone 2021- Yes [id number] 50mg Take 1 Uni vers 50 mg 2-12 tablet by ity of tablet 00:00: mouth in [place] 00 the Medical morning. Branch hydrOXYzine 2021- Yes [id number] 25mg Take 1 Univers 25 mg 2-12 tablet by ity of tablet 00:00: mouth [place] 00 every 6 Medical (six) Branch hours as needed for Anxiety. lamoTRIgine 2021- Yes [id number] 25mg Take 1 Univers 25 mg 2-12 tablet by ity of tablet 00:00: mouth in [place] 00 the Medical morning. Branch naltrexone 2021- Yes [id number] 50mg Take 1 Uni vers 50 mg 2-12 tablet by ity of tablet 00:00: mouth in [place] 00 the Medical morning. Branch hydrOXYzine 2021- Yes [id number] 25mg Take 1 Univers 25 mg 2-12 tablet by ity of tablet 00:00: mouth [place] 00 every 6 Medical (six) Branch hours as needed for Anxiety. lamoTRIgine 2021-07 Yes [id number] 25mg Take 1 Univers 25 mg 2-12 tablet by ity of tablet 00:00: mouth in [place] 00 the Medical morning. Branch naltrexone 2021-07 Yes [id number] 50mg Take 1 Uni vers 50 mg 2-12 tablet by ity of tablet 00:00: mouth in [place] 00 the Medical morning. Branch hydrOXYzine 2021-07 Yes [id number] 25mg Take 1 Univers 25 mg 2-12 tablet by ity of tablet 00:00: mouth [place] 00 every 6 Medical (six) Branch hours as needed for Anxiety. lamoTRIgine 2021-07 Yes [id number] 25mg Take 1 Univers 25 mg 2-12 tablet by ity of tablet 00:00: mouth in [place] 00 the Medical morning. Branch naltrexone 2021-07 Yes [id number] 50mg Take 1 Uni vers 50 mg 2-12 tablet by ity of tablet 00:00: mouth in [place] 00 the Medical morning. Branch hydrOXYzine 2021-07 Yes [id number] 25mg Take 1 Univers 25 mg 2-12 tablet by ity of tablet 00:00: mouth [place] 00 every 6 Medical (six) Branch hours as needed for Anxiety. lamoTRIgine 2021-07 Yes [id number] 25mg Take 1 Univers 25 mg 2-12 tablet by ity of tablet 00:00: mouth in [place] 00 the Medical morning. Branch naltrexone 2021-07 Yes [id number] 50mg Take 1 Uni vers 50 mg 2-12 tablet by ity of tablet 00:00: mouth in [place] 00 the Medical morning. Branch hydrOXYzine 2021- Yes [id number] 25mg Take 1 Univers 25 mg 2-12 tablet by ity of tablet 00:00: mouth [place] 00 every 6 Medical (six) Branch hours as needed for Anxiety. naltrexone 2021- Yes [id number] 50mg Take 1 Uni vers 50 mg 2-12 tablet by ity of tablet 00:00: mouth in [place] 00 the Medical morning. Branch naltrexone 2021- Yes [id number] 50mg Take 1 Uni vers 50 mg 2-12 tablet by ity of tablet 00:00: mouth in [place] 00 the Medical morning. Branch naltrexone 2021- Yes [id number] 50mg Take 1 Uni vers 50 mg 2-12 tablet by ity of tablet 00:00: mouth in [place] 00 the Medical morning. Branch naltrexone 2021-07 Yes [id number] 50mg Take 1 Uni vers 50 mg 2-12 tablet by ity of tablet 00:00: mouth in [place] 00 the Medical morning. Branch naltrexone 2021-07 Yes [id number] 50mg Take 1 Uni vers 50 mg 2-12 tablet by ity of tablet 00:00: mouth in [place] 00 the Medical morning. Branch atomoxetine 2021-07- Yes [id number] 60mg Take 1 Univers (STRATTERA) 08-14 capsule by i ty of 60 mg 00:00: 04:59 mouth in [place] capsule 00 :00 the Medical morning Branch for 90 days. atomoxetine 2021-07- Yes [id number] 60mg Take 1 Univers (STRATTERA) 08-14 capsule by i ty of 60 mg 00:00: 04:59 mouth in [place] capsule 00 :00 the Medical morning Branch for 90 days. atomoxetine 2021-07- Yes [id number] 60mg Take 1 Univers (STRATTERA) 08-14 capsule by i ty of 60 mg 00:00: 04:59 mouth in [place] capsule 00 :00 the Medical morning Branch for 90 days. atomoxetine 2021-07- Yes [id number] 60mg Take 1 Univers (STRATTERA) 08-14 capsule by i ty of 60 mg 00:00: 04:59 mouth in [place] capsule 00 :00 the Medical morning Branch for 90 days. atomoxetine 2021-07- Yes [id number] 60mg Take 1 Univers (STRATTERA) 08-14 capsule by i ty of 60 mg 00:00: 04:59 mouth in [place] capsule 00 :00 the Medical morning Branch for 90 days. atomoxetine 2021-07- Yes [id number] 60mg Take 1 Univers (STRATTERA) 08-14 capsule by i ty of 60 mg 00:00: 04:59 mouth in [place] capsule 00 :00 the Medical morning Branch for 90 days. atomoxetine 2021-07- Yes [id number] 60mg Take 1 Univers (STRATTERA) 08-14 capsule by i ty of 60 mg 00:00: 04:59 mouth in [place] capsule 00 :00 the Medical morning Branch for 90 days. atomoxetine 2021-07- Yes [id number] 60mg Take 1 Univers (STRATTERA) 08-14 capsule by i ty of 60 mg 00:00: 04:59 mouth in [place] capsule 00 :00 the Medical morning Branch for 90 days. atomoxetine 2021-07- Yes [id number] 60mg Take 1 Univers (STRATTERA) 08-14 capsule by i ty of 60 mg 00:00: 04:59 mouth in [place] capsule 00 :00 the Medical morning Branch for 90 days. atomoxetine 2021-07- Yes [id number] 60mg Take 1 Univers (STRATTERA) 08-14 capsule by i ty of 60 mg 00:00: 04:59 mouth in [place] capsule 00 :00 the Medical morning Branch for 90 days. atomoxetine 2021-07- Yes [id number] 60mg Take 1 Univers (STRATTERA) 08-14 capsule by i ty of 60 mg 00:00: 04:59 mouth in [place] capsule 00 :00 the Medical morning Branch for 90 days. atomoxetine 2021-07- Yes [id number] 60mg Take 1 Univers (STRATTERA) 08-14 capsule by i ty of 60 mg 00:00: 04:59 mouth in [place] capsule 00 :00 the Medical morning Branch for 90 days. atomoxetine 2021-07- Yes [id number] 60mg Take 1 Univers (STRATTERA) 08-14 capsule by i ty of 60 mg 00:00: 04:59 mouth in [place] capsule 00 :00 the Medical morning Branch for 90 days. atomoxetine 2021-07- Yes [id number] 60mg Take 1 Univers (STRATTERA) 08-14 capsule by i ty of 60 mg 00:00: 04:59 mouth in [place] capsule 00 :00 the Medical morning Branch for 90 days. atomoxetine 2021-07- No [id number] 60mg Take 1 Univers (STRATTERA) 08-14 capsule by i ty of 60 mg 00:00: 00:00 mouth in [place] capsule 00 :00 the Medical morning Branch for 90 days. naltrexone 2021-07- No [id number] 50mg Take 1 Un kayleen 50 mg 2-12 02-20 tablet by ity of tablet 00:00: 00:00 mouth in [place] 00 :00 the Medical morning. Branch atomoxetine 2021-07- No [id number] 60mg Take 1 Univers (STRATTERA) 2-12 -20 capsule by i ty of 60 mg 00:00: 00:00 mouth in [place] capsule 00 :00 the Medical morning Branch for 90 days. naltrexone 2021-07- No [id number] 50mg Take 1 Un [place] 50 mg 2-12 -20 tablet by ity of tablet 00:00: 00:00 mouth in [place] 00 :00 the Medical morning. Branch atomoxetine 2021-07- No [id number] 60mg Take 1 Univers (STRATTERA) 2-06 03-20 capsule by i ty of 60 mg 00:00: 00:00 mouth in [place] capsule 00 :00 the Medical morning Branch for 90 days. naltrexone 2021-07- No [id number] 50mg Take 1 Un [place] 50 mg 2-06 03-20 tablet by ity of tablet 00:00: 00:00 mouth in [place] 00 :00 the Medical morning. Branch hydrOXYzine 2021-07- No [id number] 25mg Take 1 Univers 25 mg 2-07-25 tablet by ity of tablet 00:00: 00:00 mouth [place] 00 :00 every 6 Medical (six) Branch hours as needed for Anxiety. hydrOXYzine 2021-07- No [id number] 25mg Take 1 Univers 25 mg 2-23 tablet by ity of tablet 00:00: 00:00 mouth [place] 00 :00 every 6 Medical (six) Branch hours as needed for Anxiety. hydrOXYzine 2021-07- No [id number] 25mg Take 1 Univers 25 mg 2-06 02-23 tablet by ity of tablet 00:00: 00:00 mouth [place] 00 :00 every 6 Medical (six) Branch hours as needed for Anxiety. hydrOXYzine 2021-07- No [id number] 25mg Take 1 Univers 25 mg 2-06 02-23 tablet by ity of tablet 00:00: 00:00 mouth [place] 00 :00 every 6 Medical (six) Branch hours as needed for Anxiety. hydrOXYzine 2021-07- No [id number] 25mg Take 1 Univers 25 mg 2-12 - tablet by ity of tablet 00:00: 00:00 mouth [place] 00 :00 every 6 Medical (six) Branch hours as needed for Anxiety. hydrOXYzine 2021-07- No [id number] 25mg Take 1 Univers 25 mg 2-12 07-25 tablet by ity of tablet 00:00: 00:00 mouth [place] 00 :00 every 6 Medical (six) Branch hours as needed for Anxiety. hydrOXYzine 2021-07- No [id number] 25mg Take 1 Univers 25 mg 2-07-25 tablet by ity of tablet 00:00: 00:00 mouth [place] 00 :00 every 6 Medical (six) Branch hours as needed for Anxiety. lamoTRIgine 2021-07- No [id number] 25mg Take 1 Univers 25 mg 2-12 - tablet by ity of tablet 00:00: 00:00 mouth in [place] 00 :00 the Medical morning. [place] lamoTRIgine 2021-07- No [id number] 25mg Take 1 Univers 25 mg 2-12 - tablet by ity of tablet 00:00: 00:00 mouth in [place] 00 :00 the Medical morning. [place] lamoTRIgine 2021-07- No [id number] 25mg Take 1 Univers 25 mg 2-12 -10 tablet by ity of tablet 00:00: 00:00 mouth in [place] 00 :00 the Medical morning. [place] lamoTRIgine 2021-07- No [id number] 25mg Take 1 Univers 25 mg 2-12 -10 tablet by ity of tablet 00:00: 00:00 mouth in [place] 00 :00 the Medical morning. [place] lamoTRIgine 2021-07- No [id number] 25mg Take 1 Univers 25 mg 2-12 -10 tablet by ity of tablet 00:00: 00:00 mouth in [place] 00 :00 the Medical morning. [place] hydrOXYzine 2021-07- No 25mg 25 mg, Uni vers (ATARAX) 1-30 -30 Oral, ity of tablet 25 05:00: 05:14 ONCE, 1 [place] mg 00 :00 dose, On Medical e Branch 05/31/22 at 2300, ARL[place] hydrOXYzine 2022-1 Yes [id number] 25mg Take 1 Univers 25 mg 1-29 tablet by ity of tablet 00:00: mouth [place] 00 every 6 Medical (six) Branch hours as needed for Anxiety. hydrOXYzine 2021-07- No [id number] 25mg Take 1 Univers 25 mg 1-29 12-12 tablet by ity of tablet 00:00: 00:00 mouth [place] 00 :00 every 6 Medical (six) Branch hours as needed for Anxiety. hydrOXYzine 2021-07- No [id number] 25mg Take 1 Univers 25 mg 1-29 12-12 tablet by ity of tablet 00:00: 00:00 mouth [place] 00 :00 every 6 Medical (six) Branch hours as needed for Anxiety. hydrOXYzine 2021-07- No [id number] 25mg Take 1 Univers 25 mg 1-29 12-12 tablet by ity of tablet 00:00: 00:00 mouth [place] 00 :00 every 6 Medical (six) Branch hours as needed for Anxiety. hydrOXYzine 2021-07- No [id number] 25mg Take 1 Univers 25 mg 1-29 12-12 tablet by ity of tablet 00:00: 00:00 mouth [place] 00 :00 every 6 Medical (six) Branch hours as needed for Anxiety. hydrOXYzine 2021-07- No [id number] 25mg Take 1 Univers 25 mg 1-29 12-12 tablet by ity of tablet 00:00: 00:00 mouth [place] 00 :00 every 6 Medical (six) Branch hours as needed for Anxiety. ARIPiprazol 2021-07- No [id number] 300mg Univers e (ABILIFY 07-19-17 ity of MAINTENA) 17:00: 16:17 [place] injection 00 :00 Medical SSRR 300 mg Branch ARIPiprazol 2021-07- No [id number] 300mg Univers e (ABILIFY 07-19-17 ity of MAINTENA) 17:00: 16:17 [place] injection 00 :00 Medical SSRR 300 mg Branch ARIPiprazol 2021-07- No [id number] 300mg Univers e (ABILIFY 07-19-17 ity of MAINTENA) 17:00: 16:17 [place] injection 00 :00 Medical SSRR 300 mg Branch ARIPiprazol 2021-07- No [id number] 300mg Univers e (ABILIFY -17 11-17 ity of MAINTENA) 17:00: 16:17 [place] injection 00 :00 Medical SSRR 300 mg Branch ARIPiprazol 2021-07- No [id number] 300mg Univers e (ABILIFY -17 11-17 ity of MAINTENA) 17:00: 16:17 [place] injection 00 :00 Medical SSRR 300 mg Branch [facility] Yes Univers [facility] 1-15 ity of 300 mg sers 00:00: [place] [facility]07 Yes Univers MA[facility]TENA 1-15 ity of 300 mg sers 00:00: [place] [facility] [facility] 2021-07 Yes [facility] MAINTENA 1-15 ity of 300 mg sers 00:00: [place] [facility] 2021-07 Yes [facility] MAINTENA 1-15 ity of 300 mg sers 00:00: [place] [facility] 2021-07 Yes [facility] MAINTENA 1-15 ity of 300 mg sers 00:00: [place] [facility]07 Yes [facility] MAINTENA 1-15 ity of 300 mg sers 00:00: [place] [facility] 2021-07 Yes [facility] MAINTENA 1-15 ity of 300 mg sers 00:00: [place] [facility] 2021-07 Yes [facility] MAINTENA 1-15 ity of 300 mg sers 00:00: [place] [facility] 2021-07 Yes [facility] MAINTENA 1-15 ity of 300 mg sers 00:00: [place] [facility] 2021-07- No [facility] MAINTENA 1-15 01-10 ity of 300 mg sers 00:00: 00:00 [place] 00 :00 [facility] 2021-07- No [facility] MAINTENA 1-15 01-10 ity of 300 mg sers 00:00: 00:00 [place] 00 :00 [facility] Branch [facility] 2021-07- No [facility] MAINTENA 1-15 -10 ity of 300 mg sers 00:00: 00:00 [...] 00 :00 Medical Branch atomoxetine 2021- Yes [id number] 40mg Take 1 [facility] 40 mg 0-31 capsule by ity of capsule 00:00: mouth in [place] the Medical morning. Branch lamoTRIgine 2021-07 Yes [id number] 25mg Take 1 [facility] 25 mg 0-31 tablet by ity of tablet 00:00: mouth in [place] the Medical morning. Branch atomoxetine 2021-07 Yes [id number] 40mg Take 1 [facility] 40 mg 0-31 capsule by ity of capsule 00:00: mouth in [place] the Medical morning. Branch lamoTRIgine 2021-07 Yes [id number] 25mg Take 1 [facility] 25 mg 0-31 tablet by ity of tablet 00:00: mouth in [place] the Medical morning. Branch atomoxetine 2021-07 Yes [id number] 40mg Take 1 [facility] 40 mg 0-31 capsule by ity of capsule 00:00: mouth in [place] the Medical morning. Branch lamoTRIgine 2021- Yes [id number] 25mg Take 1 [facility] 25 mg 0-31 tablet by ity of tablet 00:00: mouth in [place] the Medical morning. Branch atomoxetine 2021-07 Yes [id number] 40mg Take 1 [facility] 40 mg 0-31 capsule by ity of capsule 00:00: mouth in [place] the Medical morning. Branch lamoTRIgine 2021- Yes [id number] 25mg Take 1 [facility] 25 mg 0-31 tablet by ity of tablet 00:00: mouth in [place] the Medical morning. Branch atomoxetine 2021- Yes [id number] 40mg Take 1 [facility] 40 mg 0-31 capsule by ity of capsule 00:00: mouth in [place] the Medical morning. Branch lamoTRIgine 2021-07 Yes [id number] 25mg Take 1 [facility] 25 mg 0-31 tablet by ity of tablet 00:00: mouth in [place] 00 the Medical morning. Branch atomoxetine 2021-07 Yes [id number] 40mg Take 1 [facility] 40 mg 0-31 capsule by ity of capsule 00:00: mouth in [place] 00 the Medical morning. Branch lamoTRIgine 2021-07 Yes [id number] 25mg Take 1 [facility] 25 mg 0-31 tablet by ity of tablet 00:00: mouth in [place] 00 the Medical morning. Branch atomoxetine 2021-07 Yes [id number] 40mg Take 1 [facility] 40 mg 0-31 capsule by ity of capsule 00:00: mouth in [place] 00 the Medical morning. Branch lamoTRIgine 2021-07 Yes [id number] 25mg Take 1 [facility] 25 mg 0-31 tablet by ity of tablet 00:00: mouth in [place] 00 the Medical morning. Branch atomoxetine 2021-07 Yes [id number] 40mg Take 1 [facility] 40 mg 0-31 capsule by ity of capsule 00:00: mouth in [place] 00 the Medical morning. Branch lamoTRIgine 2021-07 Yes [id number] 25mg Take 1 [facility] 25 mg 0-31 tablet by ity of tablet 00:00: mouth in [place] 00 the Medical morning. Branch atomoxetine 2021-07 Yes [id number] 40mg Take 1 [facility] 40 mg 0-31 capsule by ity of capsule 00:00: mouth in [place] 00 the Medical morning. Branch lamoTRIgine 2021-07 Yes [id number] 25mg Take 1 [facility] 25 mg 0-31 tablet by ity of tablet 00:00: mouth in [place] 00 the Medical morning. Branch naltrexone 2021-07- No [id number] 50mg Take 1 [facility] 50 mg 0-31 01-30 tablet by ity of tablet 00:00: 05:59 mouth in [place] 00 :00 the Medical morning Branch for 90 days. naltrexone 2021-2022- No [id number] 50mg Take 1 [facility] 50 mg 0-31 01-30 tablet by ity of tablet 00:00: 05:59 mouth in [place] 00 :00 the Medical morning Branch for 90 days. naltrexone 2021-07- No [id number] 50mg Take 1 [facility] 50 mg 0-31 01-30 tablet by ity of tablet 00:00: 05:59 mouth in [place] 00 :00 the Medical morning Branch for 90 days. naltrexone 2021-07- No [id number] 50mg Take 1 [facility] 50 mg 0-31 01-30 tablet by ity of tablet 00:00: 05:59 mouth in [place] 00 :00 [facility] for 90 days. naltrexone 2021-07- No [id number] 50mg Take 1 [facility] 50 mg 0-31 01-30 tablet by ity of tablet 00:00: 05:59 mouth in [place] 00 :00 [facility] morning [facility] for 90 days. naltrexone 2021-07- No [id number] 50mg Take 1 [facility] 50 mg 0-31 01-30 tablet by ity of tablet 00:00: 05:59 mouth in [place] 00 :00 [facility] morning [facility] for 90 days. naltrexone 2021-07- No [id number] 50mg Take 1 [facility] 50 mg 0-31 01-30 tablet by ity of tablet 00:00: 05:59 mouth in [place] 00 :00 [facility] morning [facility] for 90 days. naltrexone 2021-07- No [id number] 50mg Take 1 [facility] 50 mg 0-31 01-30 tablet by ity of tablet 00:00: 05:59 mouth in [place] 00 :00 [facility] morning [place] for 90 days. naltrexone 2021-07- No [id number] 50mg Take 1 [facility] 50 mg 0-31 01-30 tablet by ity of tablet 00:00: 05:59 mouth in [place] 00 :00 [facility] morning [place] for 90 days. naltrexone 2021-07- No [id number] 50mg Take 1 [facility] 50 mg 0-31 12-12 tablet by ity of tablet 00:00: 00:00 mouth in [place] 00 :00 [facility] morning [place] for 90 days. atomoxetine 2021-07- No [id number] 40mg Take 1 [facility] 40 mg 0-31 12-12 capsule by ity of capsule 00:00: 00:00 mouth in [place] 00 :00 the Medical morning. Branch lamoTRIgine 2021-07- No [id number] 25mg Take 1 [facility] 25 mg 0-31 12-12 tablet by ity of tablet 00:00: 00:00 mouth in [place] 00 :00 the Medical morning. Branch naltrexone 2021-07- No [id number] 50mg Take 1 [facility] 50 mg 0-31 12-12 tablet by ity of tablet 00:00: 00:00 mouth in [place] 00 :00 the Medical morning Branch for 90 days. atomoxetine 2021-07- No [id number] 40mg Take 1 [facility] 40 mg 0-31 12-12 capsule by ity of capsule 00:00: 00:00 mouth in [place] 00 :00 the Medical morning. Branch lamoTRIgine 2021-07- No [id number] 25mg Take 1 [facility] 25 mg 0-31 12-12 tablet by ity of tablet 00:00: 00:00 mouth in [place] 00 :00 the Medical morning. Branch naltrexone 2021-07- No [id number] 50mg Take 1 [facility] 50 mg 0-31 12-12 tablet by ity of tablet 00:00: 00:00 mouth in [place] 00 :00 the Medical morning Branch for 90 days. atomoxetine 2021-07- No [id number] 40mg Take 1 [facility] 40 mg 0-31 12-12 capsule by ity of capsule 00:00: 00:00 mouth in [place] 00 :00 the Medical morning. Branch lamoTRIgine 2021-07- No [id number] 25mg Take 1 [facility] 25 mg 0-31 12-12 tablet by ity of tablet 00:00: 00:00 mouth in [place] 00 :00 the Medical morning. Branch naltrexone 2021-07- No [id number] 50mg Take 1 [facility] 50 mg 0-31 12-12 tablet by ity of tablet 00:00: 00:00 mouth in [place] 00 :00 the Medical morning Branch for 90 days. atomoxetine 2021-07- No [id number] 40mg Take 1 [facility] 40 mg 0-31 12-12 capsule by ity of capsule 00:00: 00:00 mouth in [place] 00 :00 the Medical morning. Branch lamoTRIgine 2021-07- No [id number] 25mg Take 1 [facility] 25 mg 0-31 12-12 tablet by ity of tablet 00:00: 00:00 mouth in [place] 00 :00 the Medical morning. Branch naltrexone 2021-2021- No [id number] 50mg Take 1 [facility] 50 mg 0-31 12-12 tablet by ity of tablet 00:00: 00:00 mouth in [place] 00 :00 the Medical morning Branch for 90 days. atomoxetine 2021-07- No [id number] 40mg Take 1 [facility] 40 mg 0-31 12-12 capsule by ity of capsule 00:00: 00:00 mouth in [place] 00 :00 the Medical morning. Branch lamoTRIgine 2021-07- No [id number] 25mg Take 1 [facility] 25 mg 0-31 12-12 tablet by ity of tablet 00:00: 00:00 mouth in [place] 00 :00 the Medical morning. Branch ARIPiprazol 2021-07- No [id number] 300mg Univers e (ABILIFY 0-20 10-20 ity of MAINTENA) 15:15: 15:46 [place] injection 00 :00 Medical SSRR 300 mg Branch ARIPiprazol 2021-07- No [id number] 300mg [facility] e (ABILIFY 0-20 10-20 ity of MAINTENA) 15:15: 15:46 [place] injection 00 :00 Medical SSRR 300 mg Branch ARIPiprazol 2021-07- No [id number] 300mg [facility] e (ABILIFY 0-20 10-20 ity of MAINTENA) 15:15: 15:46 [place] injection 00 :00 Medical SSRR 300 mg Branch ARIPiprazol 2021-07- No [id number] 300mg [facility] e (ABILIFY 0-20 10-20 ity of MAINTENA) 15:15: 15:46 [place] injection 00 :00 Medical SSRR 300 mg Branch ARIPiprazol 2021-07- No [id number] 300mg [facility] e (ABILIFY 0-20 10-20 ity of MAINTENA) 15:15: 15:46 [place] injection 00 :00 Medical SSRR 300 mg Branch ARIPiprazol 2021-07- No [id number] 300mg [facility] e (ABILIFY 0-20 10-20 ity of MAINTENA) 15:15: 15:46 [place] injection 00 :00 Medical SSRR 300 mg Branch ARIPiprazol 2021-07- No [id number] 300mg [facility] e (ABILIFY 0-19 10-20 ity of MAINTENA) 15:45: 03:44 [place] injection 00 :00 Medical SSRR 300 mg Branch lamoTRIgine 2-1 Yes 25mg Take 1 [facility] ers 25 mg 0-18 tablet by ity of tablet 00:00: mouth in [place] the Medical morning. Branch lamoTRIgine 2-1 Yes 25mg Take 1 [facility] ers 25 mg 0-18 tablet by ity of tablet 00:00: mouth in [place] the Medical morning. Branch lamoTRIgine 2022-1 Yes 25mg Take 1 [facility] ers 25 mg 0-18 tablet by ity of tablet 00:00: mouth in [place] the Medical morning. Branch lamoTRIgine 2-1 Yes 25mg Take 1 [facility] ers 25 mg 0-18 tablet by ity of tablet 00:00: mouth in [place] the Medical morning. Branch lamoTRIgine 2-1 Yes 25mg Take 1 [facility] ers 25 mg 0-18 tablet by ity of tablet 00:00: mouth in [place] the Medical morning. Branch lamoTRIgine 2-1 Yes 25mg Take 1 [facility] ers 25 mg 0-18 tablet by ity of tablet 00:00: mouth in [place] the Medical morning. Branch lamoTRIgine 2-1 Yes 25mg Take 1 [facility] ers 25 mg 0-18 tablet by ity of tablet 00:00: mouth in [place] the Medical morning. Branch lamoTRIgine 2-1 Yes 25mg Take 1 [facility] ers 25 mg 0-18 tablet by ity of tablet 00:00: mouth in [place] the Medical morning. Branch lamoTRIgine 2-1 Yes 25mg Take 1 [facility] ers 25 mg 0-18 tablet by ity of tablet 00:00: mouth in [place] the Medical morning. Branch lamoTRIgine 2022-1 Yes 25mg Take 1 [facility] ers 25 mg 0-18 tablet by ity of tablet 00:00: mouth in [place] the Medical morning. Branch lamoTRIgine 2022-1 Yes 25mg Take 1 [facility] ers 25 mg 0-18 tablet by ity of tablet 00:00: mouth in [place] the Medical morning. Branch lamoTRIgine 2022-1 Yes 25mg Take 1 [facility] ers 25 mg 0-18 tablet by ity of tablet 00:00: mouth in [place] 00 the Medical morning. Branch lamoTRIgine 2022-1 2022- No 25mg Take 1 [facility] vers 25 mg 0-18 10-31 tablet by ity of tablet 00:00: 00:00 mouth in [place] 00 :00 the Medical morning. Branch lamoTRIgine 2021-07- No 25mg Take 1 [facility] vers 25 mg 0-18 10-31 tablet by ity of tablet 00:00: 00:00 mouth in [place] 00 :00 the Medical morning. Branch lamoTRIgine 2021-2021- No 25mg Take 1 [facility] vers 25 mg 0-18 10-31 tablet by ity of tablet 00:00: 00:00 mouth in [place] 00 :00 the Medical morning. Branch lamoTRIgine 2021-07- No 25mg Take 1 [facility] vers 25 mg 0-18 10-31 tablet by ity of tablet 00:00: 00:00 mouth in [place] 00 :00 the Medical morning. Branch atomoxetine 2021-07 Yes [id number] 40mg Take 1 [facility] 40 mg 0-13 capsule by ity of capsule 00:00: mouth in [place] 00 the Medical morning. Branch atomoxetine 2021-07 Yes [id number] 40mg Take 1 [facility] 40 mg 0-13 capsule by ity of capsule 00:00: mouth in [place] 00 the Medical morning. Branch atomoxetine 2021-07 Yes [id number] 40mg Take 1 [facility] 40 mg 0-13 capsule by ity of capsule 00:00: mouth in [place] 00 the Medical morning. Branch atomoxetine 2021-07 Yes [id number] 40mg Take 1 [facility] 40 mg 0-13 capsule by ity of capsule 00:00: mouth in [place] 00 the Medical morning. Branch atomoxetine 2021- Yes [id number] 40mg Take 1 [facility] 40 mg 0-13 capsule by ity of capsule 00:00: mouth in [place] 00 the Medical morning. Branch atomoxetine 2021- Yes [id number] 40mg Take 1 [facility] 40 mg 0-13 capsule by ity of capsule 00:00: mouth in [place] 00 the Medical morning. Branch atomoxetine 2021- Yes [id number] 40mg Take 1 [facility] 40 mg 0-13 capsule by ity of capsule 00:00: mouth in [place] 00 the Medical morning. Branch atomoxetine 2021- Yes [id number] 40mg Take 1 [facility] 40 mg 0-13 capsule by ity of capsule 00:00: mouth in [place] 00 the Medical morning. Branch atomoxetine 2021-07 Yes [id number] 40mg Take 1 [facility] 40 mg 0-13 capsule by ity of capsule 00:00: mouth in [place] 00 the Medical morning. Branch atomoxetine 2021-07 Yes [id number] 40mg Take 1 [facility] 40 mg 0-13 capsule by ity of capsule 00:00: mouth in [place] the Medical morning. Branch atomoxetine 2021-07 Yes [id number] 40mg Take 1 [facility] 40 mg 0-13 capsule by ity of capsule 00:00: mouth in [place] the Medical morning. Branch atomoxetine 2021-07 Yes [id number] 40mg Take 1 [facility] 40 mg 0-13 capsule by ity of capsule 00:00: mouth in [place] 00 the Medical morning. Branch atomoxetine 2021-07 Yes [id number] 40mg Take 1 [facility] 40 mg 0-13 capsule by ity of capsule 00:00: mouth in [place] the Medical morning. Branch atomoxetine 2021-07 Yes [id number] 40mg Take 1 [facility] 40 mg 0-13 capsule by ity of capsule 00:00: mouth in [place] the Medical morning. Branch atomoxetine 2021-07 Yes [id number] 40mg Take 1 [facility] 40 mg 0-13 capsule by ity of capsule 00:00: mouth in [place] the Medical morning. Branch atomoxetine 2021-07 Yes [id number] 40mg Take 1 [facility] 40 mg 0-13 capsule by ity of capsule 00:00: mouth in [place] the Medical morning. Branch atomoxetine 2021-07 Yes [id number] 40mg Take 1 [facility] 40 mg 0-13 capsule by ity of capsule 00:00: mouth in [place] 00 the Medical morning. Branch atomoxetine 2021-07 Yes [id number] 40mg Take 1 [facility] 40 mg 0-13 capsule by ity of capsule 00:00: mouth in [place] 00 the Medical morning. Branch atomoxetine 2021-07- No [id number] 40mg Take 1 [facility] 40 mg 0-13 10-31 capsule by ity of capsule 00:00: 00:00 mouth in [place] 00 :00 the Medical morning. Branch atomoxetine 2021-07- No [id number] 40mg Take 1 [facility] 40 mg 0-13 10-31 capsule by ity of capsule 00:00: 00:00 mouth in [place] 00 :00 the Medical morning. Branch atomoxetine 2021-07- No [id number] 40mg Take 1 [facility] 40 mg 0-13 10-31 capsule by ity of capsule 00:00: 00:00 mouth in [place] 00 :00 the Medical morning. Branch atomoxetine 2021-07- No [id number] 40mg Take 1 [facility] 40 mg 0-13 10-31 capsule by ity of capsule 00:00: 00:00 mouth in [place] 00 :00 the Medical morning. Branch NaCl 0.9% 2021-07- No 1000mL at 999 Uni vers (NS) bolus 0-09 10-10 mL/hr, ity of infusion 23:45: 03:09 1,000 mL, [place] as 1,000 mL 00 :00 IV Medical Infusion, Branch ONCE, 1 dose, On 04/10/22 at 1845, ARELN atomoxetine 2021-07 Yes 40mg Take 1 [facility] ers 40 mg 0-07 capsule by ity of capsule 00:00: mouth in [place] 00 the Medical morning. Branch lamoTRIgine 2021-07 Yes 25mg Take 1 [facility] ers 25 mg 0-07 tablet by ity of tablet 00:00: mouth in [place] 00 the Medical morning. Branch atomoxetine 2021-07 Yes 40mg Take 1 [facility] ers 40 mg 0-07 capsule by ity of capsule 00:00: mouth in [place] 00 the Medical morning. Branch lamoTRIgine 2021-07 Yes 25mg Take 1 [facility] ers 25 mg 0-07 tablet by ity of tablet 00:00: mouth in [place] 00 the Medical morning. Branch atomoxetine 2021-07 Yes 40mg Take 1 [facility] ers 40 mg 0-07 capsule by ity of capsule 00:00: mouth in [place] 00 the Medical morning. Branch lamoTRIgine 2021- Yes 25mg Take 1 [facility] ers 25 mg 0-07 tablet by ity of tablet 00:00: mouth in [place] 00 the Medical morning. Branch atomoxetine 2021-07 Yes 40mg Take 1 [facility] ers 40 mg 0-07 capsule by ity of capsule 00:00: mouth in [place] 00 the Medical morning. Branch lamoTRIgine 2021- Yes 25mg Take 1 [facility] ers 25 mg 0-07 tablet by ity of tablet 00:00: mouth in [place] 00 the Medical morning. Branch lamoTRIgine 2021- Yes 25mg Take 1 [facility] ers 25 mg 0-07 tablet by ity of tablet 00:00: mouth in [place] 00 the Medical morning. Branch lamoTRIgine 2021-07 Yes 25mg Take 1 [facility] ers 25 mg 0-07 tablet by ity of tablet 00:00: mouth in [place] 00 the Medical morning. Branch lamoTRIgine 2021-07 Yes 25mg Take 1 [facility] ers 25 mg 0-07 tablet by ity of tablet 00:00: mouth in [place] 00 the Medical morning. Branch lamoTRIgine 2021- Yes 25mg Take 1 [facility] ers 25 mg 0-07 tablet by ity of tablet 00:00: mouth in [place] 00 the Medical morning. Branch lamoTRIgine 2021-07 Yes 25mg Take 1 [facility] ers 25 mg 0-07 tablet by ity of tablet 00:00: mouth in [place] 00 the Medical morning. Branch lamoTRIgine 2021- Yes 25mg Take 1 [facility] ers 25 mg 0-07 tablet by ity of tablet 00:00: mouth in [place] 00 the Medical morning. Branch polyethylen 2021-07- No [id number] 17g Take 1 [facility] e glycol 0-07 11-07 Packet by ity o f 3350 17 00:00: 05:59 mouth in [place] gram powder 00 :00 [facility] morning [facility] for 30 days. polyethylen 2021-07- No [id number] 17g Take 1 [facility] e glycol 0-07 11-07 Packet by ity o f 3350 17 00:00: 05:59 mouth in [place] gram powder 00 :00 [facility] morning [facility] for 30 days. polyethylen 2021-07- No [id number] 17g Take 1 [facility] e glycol 0-07 11-07 Packet by ity o f 3350 17 00:00: 05:59 mouth in [place] gram powder 00 :00 [facility] morning [place] for 30 days. polyethylen 2021-07- No [id number] 17g Take 1 [facility] e glycol 0-07 11-07 Packet by ity o f 3350 17 00:00: 05:59 mouth in [place] gram powder 00 :00 [facility] morning [facility] for 30 days. polyethylen 2021-07- No [id number] 17g Take 1 [facility] e glycol 0-07 11-07 Packet by ity o f 3350 17 00:00: 05:59 mouth in [place] gram powder 00 :00 [facility] morning [facility] for 30 days. polyethylen 2021-07- No [id number] 17g Take 1 [facility] e glycol 0-07 11-07 Packet by ity o f 3350 17 00:00: 05:59 mouth in [place] gram powder 00 :00 [facility] morning [facility] for 30 days. polyethylen 2021-07- No [id number] 17g Take 1 [facility] e glycol 0-07 11-07 Packet by ity o f 3350 17 00:00: 05:59 mouth in [place] gram powder 00 :00 [facility] morning [facility] for 30 days. polyethylen 2021-07- No [id number] 17g Take 1 [facility] e glycol 0-07 11-07 Packet by ity o f 3350 17 00:00: 05:59 mouth in [place] gram powder 00 :00 [facility] morning [facility] for 30 days. polyethylen 2021-07- No [id number] 17g Take 1 [facility] e glycol 0-07 11-07 Packet by ity o f 3350 17 00:00: 05:59 mouth in [place] gram powder 00 :00 [facility] morning [facility] for 30 days. polyethylen 2021-07- No [id number] 17g Take 1 [facility] e glycol 0-07 11-07 Packet by ity o f 3350 17 00:00: 05:59 mouth in [place] gram powder 00 :00 [facility] morning [facility] for 30 days. polyethylen 2021-07- No [id number] 17g Take 1 [facility] e glycol 0-07 11-07 Packet by ity o f 3350 17 00:00: 05:59 mouth in [place] gram powder 00 :00 [facility] morning [facility] for 30 days. polyethylen 2021-07- No [id number] 17g Take 1 [facility] e glycol 0-07 11-07 Packet by ity o f 3350 17 00:00: 05:59 mouth in [place] gram powder 00 :00 [facility] morning [facility] for 30 days. polyethylen 2021-07- No [id number] 17g Take 1 [facility] e glycol 0-07 11-07 Packet by ity o f 3350 17 00:00: 05:59 mouth in [place] gram powder 00 :00 [facility] morning [facility] for 30 days. polyethylen 2021-07- No [id number] 17g Take 1 [facility] e glycol 0-07 11-07 Packet by ity o f 3350 17 00:00: 05:59 mouth in [place] gram powder 00 :00 the Medical morning Branch for 30 days. polyethylen 2021-07- No [id number] 17g Take 1 [facility] e glycol 0-07 11-07 Packet by ity o f 3350 17 00:00: 05:59 mouth in [place] gram powder 00 :00 the Medical morning Branch for 30 days. polyethylen 2021-07- No [id number] 17g Take 1 [facility] e glycol 0-07 11-07 Packet by ity o f 3350 17 00:00: 05:59 mouth in [place] gram powder 00 :00 the Medical morning Branch for 30 days. polyethylen 2021-07- No [id number] 17g Take 1 [facility] e glycol 0-07 11-07 Packet by ity o f 3350 17 00:00: 05:59 mouth in [place] gram powder 00 :00 the Medical morning Branch for 30 days. polyethylen 2021-07- No [id number] 17g Take 1 [facility] e glycol 0-07 11-07 Packet by ity o f 3350 17 00:00: 05:59 mouth in [place] gram powder 00 :00 the Medical morning Branch for 30 days. polyethylen 2021-07- No [id number] 17g Take 1 [facility] e glycol 0-07 11-07 Packet by ity o f 3350 17 00:00: 05:59 mouth in [place] gram powder 00 :00 the Medical morning Branch for 30 days. polyethylen 2021-07- No [id number] 17g Take 1 [facility] e glycol 0-07 11-07 Packet by ity o f 3350 17 00:00: 05:59 mouth in [place] gram powder 00 :00 the Medical morning Branch for 30 days. polyethylen 2021-07- No [id number] 17g Take 1 [facility] e glycol 0-07 11-07 Packet by ity o f 3350 17 00:00: 05:59 mouth in [place] gram powder 00 :00 the Medical morning Branch for 30 days. polyethylen 2021-07- No [id number] 17g Take 1 [facility] e glycol 0-07 11-07 Packet by ity o f 3350 17 00:00: 05:59 mouth in [place] gram powder 00 :00 the Medical morning Branch for 30 days. polyethylen 2021-07- No [id number] 17g Take 1 [facility] e glycol 0-07 11-07 Packet by ity o f 3350 17 00:00: 05:59 mouth in [place] gram powder 00 :00 the Medical morning Branch for 30 days. polyethylen 2021-07- No [id number] 17g Take 1 [facility] e glycol 0-07 11-07 Packet by ity o f 3350 17 00:00: 05:59 mouth in [place] gram powder 00 :00 the Medical morning Branch for 30 days. polyethylen 2021-07- No [id number] 17g Take 1 [facility] e glycol 0-07 11-07 Packet by ity o f 3350 17 00:00: 05:59 mouth in [place] gram powder 00 :00 the Medical morning Branch for 30 days. polyethylen 2021-07- No [id number] 17g Take 1 [facility] e glycol 0-07 11-07 Packet by ity o f 3350 17 00:00: 05:59 mouth in [place] gram powder 00 :00 the Medical morning Branch for 30 days. lamoTRIgine 2021- 2022- No 25mg Take 1 [facility] vers 25 mg 0-07 10-18 tablet by ity of tablet 00:00: 00:00 mouth in [place] 00 :00 the Medical morning. Branch lamoTRIgine 2021-2- No 25mg Take 1 [facility] vers 25 mg 0-07 10-18 tablet by ity of tablet 00:00: 00:00 mouth in [place] 00 :00 the Medical morning. Branch lamoTRIgine 2021- 2022- No 25mg Take 1 [facility] vers 25 mg 0-07 10-18 tablet by ity of tablet 00:00: 00:00 mouth in [place] 00 :00 the Medical morning. Branch lamoTRIgine 2-1 2022- No 25mg Take 1 [facility] vers 25 mg 0-07 10-18 tablet by ity of tablet 00:00: 00:00 mouth in [place] 00 :00 the Medical morning. Branch lamoTRIgine 2021-1 2022- No 25mg Take 1 [facility] vers 25 mg 0-07 10-18 tablet by ity of tablet 00:00: 00:00 mouth in [place] 00 :00 the Medical morning. Branch lamoTRIgine 2021-2- No 25mg Take 1 [facility] vers 25 mg 0-07 10-18 tablet by ity of tablet 00:00: 00:00 mouth in [place] 00 :00 the Medical morning. Branch lamoTRIgine 2021-1 2- No 25mg Take 1 [facility] vers 25 mg 0-07 10-18 tablet by ity of tablet 00:00: 00:00 mouth in [place] 00 :00 the Medical morning. Branch lamoTRIgine 2021-1 2- No 25mg Take 1 [facility] vers 25 mg 0-07 10-18 tablet by ity of tablet 00:00: 00:00 mouth in [place] 00 :00 the Medical morning. Branch lamoTRIgine 2021-1 2021- No 25mg Take 1 [facility] vers 25 mg 0-07 10-18 tablet by ity of tablet 00:00: 00:00 mouth in [place] 00 :00 the Medical morning. Branch lamoTRIgine 2021-2021- No 25mg Take 1 [facility] vers 25 mg 0-07 10-18 tablet by ity of tablet 00:00: 00:00 mouth in [place] 00 :00 the Medical morning. Branch lamoTRIgine 2021-2021- No 25mg Take 1 [facility] vers 25 mg 0-07 10-18 tablet by ity of tablet 00:00: 00:00 mouth in [place] 00 :00 the Medical morning. Branch tamsulosin 2021-2021- No [id number] .4mg Take 1 [facility] 0.4 mg 24 0-07 10-15 capsule by ity of hr capsule 00:00: 04:59 mouth in [place] 00 :00 the Medical morning Branch for 7 days. tamsulosin 2021-2021- No [id number] .4mg Take 1 [facility] 0.4 mg 24 0-07 10-15 capsule by ity of hr capsule 00:00: 04:59 mouth in [place] 00 :00 the Medical morning Branch for 7 days. tamsulosin 2021-2021- No [id number] .4mg Take 1 [facility] 0[facility]4 mg 24 0-07 10-15 capsule by [facility] capsule 00:00: 04:59 mouth in [place] 00 :00 the Medical morning Branch for 7 days. tamsulosin 2021-07- No [id number] .4mg Take 1 [facility] 0.4 mg 24 0-07 10-15 capsule by [facility] capsule 00:00: 04:59 mouth in [place] 00 :00 the Medical morning Branch for 7 days. tamsulosin 2021-07- No [id number] .4mg Take 1 [facility] 0.4 mg 24 0-07 10-15 capsule by [facility] capsule 00:00: 04:59 mouth in [place] 00 :00 the Medical morning Branch for 7 days. tamsulosin 2021-07- No [id number] .4mg Take 1 [facility] 0.4 mg 24 0-07 10-15 capsule by [facility] capsule 00:00: 04:59 mouth in [place] 00 :00 [facility] for 7 days. tamsulosin 2021-07- No [id number] .4mg Take 1 [facility] 0.4 mg 24 0-07 10-15 capsule by [facility] capsule 00:00: 04:59 mouth in [place] 00 :00 [facility] morning [facility] for 7 days. tamsulosin 2021-07- No [id number] .4mg Take 1 [facility] 0.4 mg 24 0-07 10-15 capsule by [facility] capsule 00:00: 04:59 mouth in [place] 00 :00 [facility] morning [facility] for 7 days. tamsulosin 2021-07- No [id number] .4mg Take 1 [facility] 0.4 mg 24 0-07 10-15 capsule by [facility] capsule 00:00: 04:59 mouth in [place] 00 :00 [facility] morning [facility] for 7 days. tamsulosin 2021-07 No [id number] .4mg Take 1 [facility] 0.4 mg 24 0-07 10-15 capsule by [facility] hr capsule 00:00: 04:59 mouth in [place] 00 :00 the Medical morning Branch for 7 days. tamsulosin 2021-07- No [id number] .4mg Take 1 [facility] 0.4 mg 24 0-07 10-15 capsule by [facility] capsule 00:00: 04:59 mouth in [place] 00 :00 [facility] morning [facility] for 7 days. tamsulosin 2021-07- No [id number] .4mg Take 1 [facility] 0.4 mg 24 0-07 10-15 capsule by [facility] hr capsule 00:00: 04:59 mouth in [place] 00 :00 the Medical morning Branch for 7 days. tamsulosin 2021-07- No [id number] .4mg Take 1 [facility] 0.4 mg 24 0-07 10-15 capsule by [facility] hr capsule 00:00: 04:59 mouth in [place] 00 :00 the Medical morning Branch for 7 days. tamsulosin 2021-07- No [id number] .4mg Take 1 [facility] 0.4 mg 24 0-07 10-15 capsule by [facility] capsule 00:00: 04:59 mouth in [place] 00 :00 [facility] for 7 days. tamsulosin 2021-07- No [id number] .4mg Take 1 [facility] 0.4 mg 24 0-07 10-15 capsule by [facility] capsule 00:00: 04:59 mouth in [place] 00 :00 [facility] morning [facility] for 7 days. tamsulosin 2021-07- No [id number] .4mg Take 1 [facility] 0.4 mg 24 0-07 10-15 capsule by [facility] capsule 00:00: 04:59 mouth in [place] 00 :00 [facility] morning [facility] for 7 days. tamsulosin 2021-07- No [id number] .4mg Take 1 [facility] 0.4 mg 24 0-07 10-15 capsule by [facility] capsule 00:00: 04:59 mouth in [place] 00 :00 [facility] morning [facility] for 7 days. tamsulosin 2021-07- No [id number] .4mg Take 1 [facility] 0.4 mg 24 0-07 10-15 capsule by [facility] capsule 00:00: 04:59 mouth in [place] 00 :00 [facility] morning [facility] for 7 days. tamsulosin 2021-07- No [id number] .4mg Take 1 [facility] 0.4 mg 24 0-07 10-15 capsule by [facility] capsule 00:00: 04:59 mouth in [place] 00 :00 [facility] morning [facility] for 7 days. tamsulosin 2021-07- No [id number] .4mg Take 1 [facility] 0.4 mg 24 0-07 10-15 capsule by [facility] capsule 00:00: 04:59 mouth [facility] 00 :00 the Medical morning Branch for 7 days. tamsulosin 2021-07- No [id number] .4mg Take 1 [facility] 0.4 mg 24 0-07 10-15 capsule by [facility] hr capsule 00:00: 04:59 mouth in [facility] 00 :00 the Medical morning Branch for 7 days. atomoxetine 2021-2021- No 40mg Take 1 [facility] vers 40 mg 0-07 10-13 capsule by [facility] capsule 00:00: 00:00 mouth in [place] 00 :00 the Medical morning. [place] atomoxetine 2021-2021- No 40mg Take 1 [facility] vers 40 mg 0-07 10-13 capsule by [facility] capsule 00:00: 00:00 mouth in [place] 00 :00 the Medical morning. [place] atomoxetine 2021-2021- No 40mg Take 1 [facility] vers 40 mg 0-07 10-13 capsule by [facility] capsule 00:00: 00:00 mouth in [place] 00 :00 the Medical morning. Branch atomoxetine 2021-2021- No 40mg Take 1 [facility] vers 40 mg 0-07 10-13 capsule by [facility] of capsule 00:00: 00:00 mouth in [place] 00 :00 the Medical morning. Branch atomoxetine 2021-2021- No 40mg Take 1 [facility] vers 40 mg 0-07 10-13 capsule by [facility] of capsule 00:00: 00:00 mouth in [place] 00 :00 the Medical morning. Branch atomoxetine 2021-2021- No 40mg Take 1 [facility] vers 40 mg 0-07 10-13 capsule by [facility] of capsule 00:00: 00:00 mouth in [place] 00 :00 the Medical morning. Branch atomoxetine 2021-2021- No 40mg Take 1 [facility] vers 40 mg 0-07 10-13 capsule by [facility] capsule 00:00: 00:00 mouth in [place] 00 :00 the Medical morning. Branch atomoxetine 2021-2021- No 40mg Take 1 [facility] vers 40 mg 0-07 10-13 capsule by [facility] capsule 00:00: 00:00 mouth in [place] 00 :00 the Medical morning. Branch atomoxetine 2021-07- No 40mg Take 1 [facility] vers 40 mg 0-07 10-13 capsule by [facility] capsule 00:00: 00:00 mouth in [place] 00 :00 the Medical morning. [place] atomoxetine 2021-07- No 40mg Take 1 [facility] vers 40 mg 0-07 10-13 capsule by [facility] of capsule 00:00: 00:00 mouth in [place] 00 :00 the Medical morning. [place] atomoxetine 2021-07- No 40mg Take 1 [facility] vers 40 mg 0-07 10-13 capsule by [facility] capsule 00:00: 00:00 mouth in [place] 00 :00 the Medical morning. [place] atomoxetine 2021-07- No 40mg Take 1 [facility] vers 40 mg 0-07 10-13 capsule by [facility] capsule 00:00: 00:00 mouth in [place] 00 :00 the Medical morning. [place] atomoxetine 2021-07- No 40mg Take 1 [facility] vers 40 mg 0-07 10-13 capsule by [facility] capsule 00:00: 00:00 mouth in [place] 00 :00 the Medical morning. [place] atomoxetine 2021-07- No 40mg Take 1 [facility] vers 40 mg 0-07 10-13 capsule by [facility] capsule 00:00: 00:00 mouth in [place] 00 :00 the Medical morning. [place] atomoxetine 2021-07- No 40mg Take 1 [facility] vers 40 mg 0-07 10-13 capsule by [facility] of capsule 00:00: 00:00 mouth in [place] 00 :00 the Medical morning. [place] atomoxetine 2021-07- No 40mg Take 1 [facility] vers 40 mg 0-07 10-13 capsule by [facility] of capsule 00:00: 00:00 mouth in [place] 00 :00 the Medical morning. [place] atomoxetine 2021-07- No 40mg Take 1 [facility] vers 40 mg 0-07 10-13 capsule by [facility] of capsule 00:00: 00:00 mouth in [place] 00 :00 the Medical morning. [place] traZODone 2021-07 Yes 50mg 50 mg, [facility] (DESYREL) 0-06 Oral, QHS, [facility] of tablet 50 02:00: First dose [place] mg 00 on Mon04/06/22 at [place] 2100, Until Discontinu ed, Routine acetaminoph 2021-07 Yes [id number] 1000mg Take 2 [facility] en 500 mg 0-06 tablets by [facility] of tablet 00:00: mouth [place] 00 every 8 Medical (eight) Branch hours as needed for Pain. traZODone 2021-07 Yes 50mg Take 1 [facility] 50 mg 0-06 tablet by [facility] tablet 00:00: mouth at [place] 00 bedtime. Medical Branch methocarbam 2021-07 Yes [id number] 500mg Take 1 [facility] oL 500 mg 0-06 tablet by [facility] o f tablet 00:00: mouth 4 [place] 00 (four) Medical times Branch daily as needed (muscle spasms). ibuprofen 2021-07 Yes [id number] 600mg Take 1 [facility] 600 mg 0-06 tablet by [facility] tablet 00:00: mouth [place] 00 every 6 Medical (six) Branch hours as needed for Pain (scale 4-6). acetaminoph 2021-07 Yes [id number] 1000mg Take 2 [facility] en 500 mg 0-06 tablets by [facility] of tablet 00:00: mouth [place] 00 every 8 Medical (eight) Branch hours as needed for Pain. traZODone 2021-07 Yes 50mg Take 1 [facility] 50 mg 0-06 tablet by [facility] tablet 00:00: mouth at [place] 00 bedtime. Medical Branch methocarbam 2021-07 Yes [id number] 500mg Take 1 [facility] oL 500 mg 0-06 tablet by [facility] o f tablet 00:00: mouth 4 00 (four) Medical times Branch daily as needed (muscle spasms). ibuprofen 2021-07 Yes [id number] 600mg Take 1 [facility] 600 mg 0-06 tablet by [facility] of tablet 00:00: mouth [place] 00 every 6 Medical (six) Branch hours as needed for Pain (scale 4-6). acetaminoph 2021-07 Yes [id number] 1000mg Take 2 [facility] en 500 mg 0-06 tablets by [facility] of tablet 00:00: mouth [place] 00 every 8 Medical (eight) Branch hours as needed for Pain. traZODone 2021-07 Yes 50mg Take 1 [facility] 50 mg 0-06 tablet by [facility] tablet 00:00: mouth at [place] 00 bedtime. Medical Branch methocarbam 2021-07 Yes [id number] 500mg Take 1 [facility] oL 500 mg 0-06 tablet by [facility] o f tablet 00:00: mouth 4 00 (four) Medical times Branch daily as needed (muscle spasms). ibuprofen 2021-07 Yes [id number] 600mg Take 1 [facility] 600 mg 0-06 tablet by [facility] of tablet 00:00: mouth [place] 00 every 6 Medical (six) Branch hours as needed for Pain (scale 4-6). acetaminoph 2021-07 Yes [id number] 1000mg Take 2 [facility] en 500 mg 0-06 tablets by [facility] of tablet 00:00: mouth [place] 00 every 8 Medical (eight) Branch hours as needed for Pain. traZODone 2021-07 Yes 50mg Take 1 [facility] 50 mg 0-06 tablet by [facility] of tablet 00:00: mouth at [place] 00 bedtime. Medical Branch methocarbam 2021-07 Yes [id number] 500mg Take 1 [facility] oL 500 mg 0-06 tablet by [facility] o f tablet 00:00: mouth (four) Medical times Branch daily as needed (muscle spasms). ibuprofen 2021-07 Yes [id number] 600mg Take 1 [facility] 600 mg 0-06 tablet by [facility] of tablet 00:00: mouth [place] 00 every 6 Medical (six) Branch hours as needed for Pain (scale 4-6). acetaminoph 2021-07 Yes [id number] 1000mg Take 2 [facility] en 500 mg 0-06 tablets by [facility] of tablet 00:00: mouth [place] 00 every 8 Medical (eight) Branch hours as needed for Pain. traZODone 2021-07 Yes 50mg Take 1 [facility] 50 mg 0-06 tablet by [facility] of tablet 00:00: mouth at [place] 00 bedtime. Medical Branch methocarbam 2021-07 Yes [id number] 500mg Take 1 [facility] oL 500 mg 0-06 tablet by [facility] o f tablet 00:00: mouth 4 00 (four) Medical times Branch daily as needed (muscle spasms). ibuprofen 2021-07 Yes [id number] 600mg Take 1 [facility] 600 mg 0-06 tablet by [facility] of tablet 00:00: mouth [place] 00 every 6 Medical (six) Branch hours as needed for Pain (scale 4-6). acetaminoph 2021-07 Yes [id number] 1000mg Take 2 [facility] en 500 mg 0-06 tablets by [facility] of tablet 00:00: mouth [place] 00 every 8 Medical (eight) Branch hours as needed for Pain. traZODone 2021-07 Yes 50mg Take 1 [facility] 50 mg 0-06 tablet by [facility] of tablet 00:00: mouth at [place] 00 bedtime. Medical Branch methocarbam 2021-07 Yes [id number] 500mg Take 1 [facility] oL 500 mg 0-06 tablet by [facility] o f tablet 00:00: mouth (four) Medical times Branch daily as needed (muscle spasms). ibuprofen 2021-07 Yes [id number] 600mg Take 1 [facility] 600 mg 0-06 tablet by [facility] of tablet 00:00: mouth 00 every 6 Medical (six) Branch hours as needed for Pain (scale 4-6). acetaminoph 2021-07 Yes [id number] 1000mg Take 2 [facility] en 500 mg 0-06 tablets by [facility] of tablet 00:00: mouth 00 every 8 Medical (eight) Branch hours as needed for Pain. traZODone 2021-07 Yes 50mg Take 1 [facility] 50 mg 0-06 tablet by [facility] tablet 00:00: mouth at 00 bedtime. Medical Branch methocarbam 2021-07 Yes [id number] 500mg Take 1 [facility] oL 500 mg 0-06 tablet by [facility] o f tablet 00:00: mouth (four) Medical times Branch daily as needed (muscle spasms). ibuprofen 2021-07 Yes [id number] 600mg Take 1 [facility] 600 mg 0-06 tablet by [facility] of tablet 00:00: mouth 00 every 6 Medical (six) Branch hours as needed for Pain (scale 4-6). acetaminoph 2021-07 Yes [id number] 1000mg Take 2 [facility] en 500 mg 0-06 tablets by [facility] of tablet 00:00: mouth [place] 00 every 8 Medical (eight) Branch hours as needed for Pain. traZODone 2021-07 Yes 50mg Take 1 [facility] 50 mg 0-06 tablet by [facility] of tablet 00:00: mouth at [place] 00 bedtime. Medical Branch methocarbam 2021-07 Yes [id number] 500mg Take 1 [facility] oL 500 mg 0-06 tablet by [facility] o f tablet 00:00: mouth (four) Medical times Branch daily as needed (muscle spasms). ibuprofen 2021-07 Yes [id number] 600mg Take 1 [facility] 600 mg 0-06 tablet by [facility] of tablet 00:00: mouth [place] 00 every 6 Medical (six) Branch hours as needed for Pain (scale 4-6). acetaminoph 2021-07 Yes [id number] 1000mg Take 2 [facility] en 500 mg 0-06 tablets by [facility] of tablet 00:00: mouth [place] 00 every 8 Medical (eight) Branch hours as needed for Pain. traZODone 2021-07 Yes 50mg Take 1 [facility] 50 mg 0-06 tablet by [facility] of tablet 00:00: mouth at [place] 00 bedtime. Medical Branch methocarbam 2021-07 Yes [id number] 500mg Take 1 [facility] oL 500 mg 0-06 tablet by [facility] o f tablet 00:00: mouth 4 00 (four) Medical times Branch daily as needed (muscle spasms). ibuprofen 2021-07 Yes [id number] 600mg Take 1 [facility] 600 mg 0-06 tablet by [facility] of tablet 00:00: mouth [place] 00 every 6 Medical (six) Branch hours as needed for Pain (scale 4-6). acetaminoph 2021-07 Yes [id number] 1000mg Take 2 [facility] en 500 mg 0-06 tablets by [facility] of tablet 00:00: mouth [place] 00 every 8 Medical (eight) Branch hours as needed for Pain. traZODone 2021-07 Yes 50mg Take 1 [facility] 50 mg 0-06 tablet by [facility] of tablet 00:00: mouth at [place] 00 bedtime. Medical Branch methocarbam 2021-07 Yes [id number] 500mg Take 1 [facility] oL 500 mg 0-06 tablet by [facility] o f tablet 00:00: mouth 4 [place] 00 (four) Medical times Branch daily as needed (muscle spasms). ibuprofen 2021-07 Yes [id number] 600mg Take 1 [facility] 600 mg 0-06 tablet by [facility] of tablet 00:00: mouth [place] 00 every 6 Medical (six) Branch hours as needed for Pain (scale 4-6). acetaminoph 2021-07 Yes [id number] 1000mg Take 2 [facility] en 500 mg 0-06 tablets by [facility] of tablet 00:00: mouth [place] 00 every 8 Medical (eight) Branch hours as needed for Pain. traZODone 2021-07 Yes 50mg Take 1 [facility] 50 mg 0-06 tablet by [facility] of tablet 00:00: mouth at [place] 00 bedtime. Medical Branch methocarbam 2021-07 Yes [id number] 500mg Take 1 [facility] oL 500 mg 0-06 tablet by [facility] o f tablet 00:00: mouth 4 00 (four) Medical times Branch daily as needed (muscle spasms). ibuprofen 2021-07 Yes [id number] 600mg Take 1 [facility] 600 mg 0-06 tablet by [facility] of tablet 00:00: mouth [place] 00 every 6 Medical (six) Branch hours as needed for Pain (scale 4-6). acetaminoph 2021-07 Yes [id number] 1000mg Take 2 [facility] en 500 mg 0-06 tablets by [facility] of tablet 00:00: mouth [place] 00 every 8 Medical (eight) Branch hours as needed for Pain. traZODone 2021-07 Yes 50mg Take 1 [facility] 50 mg 0-06 tablet by [facility] of tablet 00:00: mouth at [place] 00 bedtime. Medical Branch methocarbam 2021-07 Yes [id number] 500mg Take 1 [facility] oL 500 mg 0-06 tablet by [facility] o f tablet 00:00: mouth (four) Medical times Branch daily as needed (muscle spasms). ibuprofen 2021-07 Yes [id number] 600mg Take 1 [facility] 600 mg 0-06 tablet by [facility] of tablet 00:00: mouth [place] 00 every 6 Medical (six) Branch hours as needed for Pain (scale 4-6). acetaminoph 2021-07 Yes [id number] 1000mg Take 2 [facility] en 500 mg 0-06 tablets by [facility] of tablet 00:00: mouth [place] 00 every 8 Medical (eight) Branch hours as needed for Pain. traZODone 2021-07 Yes 50mg Take 1 [facility] 50 mg 0-06 tablet by [facility] of tablet 00:00: mouth at [place] 00 bedtime. Medical Branch methocarbam 2021-07 Yes [id number] 500mg Take 1 [facility] oL 500 mg 0-06 tablet by [facility] o f tablet 00:00: mouth 4 00 (four) Medical times Branch daily as needed (muscle spasms). ibuprofen 2021-07 Yes [id number] 600mg Take 1 [facility] 600 mg 0-06 tablet by [facility] of tablet 00:00: mouth [place] 00 every 6 Medical (six) Branch hours as needed for Pain (scale 4-6). acetaminoph 2021-07 Yes [id number] 1000mg Take 2 [facility] en 500 mg 0-06 tablets by [facility] of tablet 00:00: mouth [place] 00 every 8 Medical (eight) Branch hours as needed for Pain. traZODone 2021-07 Yes 50mg Take 1 [facility] 50 mg 0-06 tablet by [facility] of tablet 00:00: mouth at [place] 00 bedtime. Medical Branch methocarbam 2021-07 Yes [id number] 500mg Take 1 [facility] oL 500 mg 0-06 tablet by [facility] o f tablet 00:00: mouth 4 00 (four) Medical times Branch daily as needed (muscle spasms). ibuprofen 2021-07 Yes [id number] 600mg Take 1 [facility] 600 mg 0-06 tablet by [facility] of tablet 00:00: mouth [place] 00 every 6 Medical (six) Branch hours as needed for Pain (scale 4-6). acetaminoph 2021-07 Yes [id number] 1000mg Take 2 [facility] en 500 mg 0-06 tablets by [facility] of tablet 00:00: mouth [place] 00 every 8 Medical (eight) Branch hours as needed for Pain. traZODone 2021-07 Yes 50mg Take 1 [facility] 50 mg 0-06 tablet by [facility] of tablet 00:00: mouth at [place] 00 bedtime. Medical Branch methocarbam 2021-07 Yes [id number] 500mg Take 1 [facility] oL 500 mg 0-06 tablet by [facility] o f tablet 00:00: mouth 00 (four) Medical times Branch daily as needed (muscle spasms). ibuprofen 2021-07 Yes [id number] 600mg Take 1 [facility] 600 mg 0-06 tablet by [facility] of tablet 00:00: mouth [place] 00 every 6 Medical (six) Branch hours as needed for Pain (scale 4-6). acetaminoph 2021-07 Yes [id number] 1000mg Take 2 [facility] en 500 mg 0-06 tablets by [facility] of tablet 00:00: mouth [place] 00 every 8 Medical (eight) Branch hours as needed for Pain. traZODone 2021-07 Yes 50mg Take 1 [facility] 50 mg 0-06 tablet by [facility] of tablet 00:00: mouth at [place] 00 bedtime. Medical Branch methocarbam 2021-07 Yes [id number] 500mg Take 1 [facility] oL 500 mg 0-06 tablet by [facility] o f tablet 00:00: mouth (four) Medical times Branch daily as needed (muscle spasms). ibuprofen 2021-07 Yes [id number] 600mg Take 1 [facility] 600 mg 0-06 tablet by [facility] of tablet 00:00: mouth [place] 00 every 6 Medical (six) Branch hours as needed for Pain (scale 4-6). acetaminoph 2021-07 Yes [id number] 1000mg Take 2 [facility] en 500 mg 0-06 tablets by [facility] of tablet 00:00: mouth [place] 00 every 8 Medical (eight) Branch hours as needed for Pain. traZODone 2021-07 Yes 50mg Take 1 [facility] 50 mg 0-06 tablet by [facility] of tablet 00:00: mouth at [place] 00 bedtime. Medical Branch methocarbam 2021-07 Yes [id number] 500mg Take 1 [facility] oL 500 mg 0-06 tablet by [facility] o f tablet 00:00: mouth (four) Medical times Branch daily as needed (muscle spasms). ibuprofen 2021-07 Yes [id number] 600mg Take 1 [facility] 600 mg 0-06 tablet by [facility] of tablet 00:00: mouth [place] 00 every 6 Medical (six) Branch hours as needed for Pain (scale 4-6). acetaminoph 2021-07 Yes [id number] 1000mg Take 2 [facility] en 500 mg 0-06 tablets by [facility] of tablet 00:00: mouth [place] 00 every 8 Medical (eight) Branch hours as needed for Pain. traZODone 2021-07 Yes 50mg Take 1 [facility] 50 mg 0-06 tablet by [facility] of tablet 00:00: mouth at [place] 00 bedtime. Medical Branch methocarbam 2021-07 Yes [id number] 500mg Take 1 [facility] oL 500 mg 0-06 tablet by [facility] o f tablet 00:00: mouth (four) Medical times Branch daily as needed (muscle spasms). ibuprofen 2021-07 Yes [id number] 600mg Take 1 [facility] 600 mg 0-06 tablet by [facility] of tablet 00:00: mouth [place] 00 every 6 Medical (six) Branch hours as needed for Pain (scale 4-6). acetaminoph 2021-07 Yes [id number] 1000mg Take 2 [facility] en 500 mg 0-06 tablets by [facility] of tablet 00:00: mouth [place] 00 every 8 Medical (eight) Branch hours as needed for Pain. traZODone 2021-07 Yes 50mg Take 1 [facility] 50 mg 0-06 tablet by [facility] of tablet 00:00: mouth at [place] 00 bedtime. Medical Branch methocarbam 2021-07 Yes [id number] 500mg Take 1 [facility] oL 500 mg 0-06 tablet by [facility] o f tablet 00:00: mouth 4 00 (four) Medical times Branch daily as needed (muscle spasms). ibuprofen 2021-07 Yes [id number] 600mg Take 1 [facility] 600 mg 0-06 tablet by [facility] of tablet 00:00: mouth [place] 00 every 6 Medical (six) Branch hours as needed for Pain (scale 4-6). acetaminoph 2021-07 Yes [id number] 1000mg Take 2 [facility] en 500 mg 0-06 tablets by [facility] of tablet 00:00: mouth [place] 00 every 8 Medical (eight) Branch hours as needed for Pain. traZODone 2021-07 Yes 50mg Take 1 [facility] 50 mg 0-06 tablet by [facility] of tablet 00:00: mouth at [place] 00 bedtime. Medical Branch methocarbam 2021-07 Yes [id number] 500mg Take 1 [facility] oL 500 mg 0-06 tablet by [facility] o f tablet 00:00: mouth 4 00 (four) Medical times Branch daily as needed (muscle spasms). ibuprofen 2021-07 Yes [id number] 600mg Take 1 [facility] 600 mg 0-06 tablet by [facility] of tablet 00:00: mouth [place] 00 every 6 Medical (six) Branch hours as needed for Pain (scale 4-6). acetaminoph 2021-07 Yes [id number] 1000mg Take 2 [facility] en 500 mg 0-06 tablets by [facility] of tablet 00:00: mouth [place] 00 every 8 Medical (eight) Branch hours as needed for Pain. traZODone 2021-07 Yes 50mg Take 1 [facility] 50 mg 0-06 tablet by [facility] of tablet 00:00: mouth at [place] 00 bedtime. Medical Branch methocarbam 2021-07 Yes [id number] 500mg Take 1 [facility] oL 500 mg 0-06 tablet by [facility] o f tablet 00:00: mouth 4 [place] 00 (four) Medical times Branch daily as needed (muscle spasms). ibuprofen 2021-07 Yes [id number] 600mg Take 1 [facility] 600 mg 0-06 tablet by [facility] of tablet 00:00: mouth [place] 00 every 6 Medical (six) Branch hours as needed for Pain (scale 4-6). acetaminoph 2021-07 Yes [id number] 1000mg Take 2 [facility] en 500 mg 0-06 tablets by [facility] of tablet 00:00: mouth [place] 00 every 8 Medical (eight) Branch hours as needed for Pain. traZODone 2021-07 Yes 50mg Take 1 [facility] 50 mg 0-06 tablet by [facility] of tablet 00:00: mouth at [place] 00 bedtime. Medical Branch methocarbam 2021-07 Yes [id number] 500mg Take 1 [facility] oL 500 mg 0-06 tablet by [facility] o f tablet 00:00: mouth (four) Medical times Branch daily as needed (muscle spasms). ibuprofen 2021-07 Yes [id number] 600mg Take 1 [facility] 600 mg 0-06 tablet by [facility] of tablet 00:00: mouth [place] 00 every 6 Medical (six) Branch hours as needed for Pain (scale 4-6). acetaminoph 2021-07 Yes [id number] 1000mg Take 2 [facility] en 500 mg 0-06 tablets by [facility] of tablet 00:00: mouth [place] 00 every 8 Medical (eight) Branch hours as needed for Pain. traZODone 2021-07 Yes 50mg Take 1 [facility] 50 mg 0-06 tablet by [facility] of tablet 00:00: mouth at [place] 00 bedtime. Medical Branch methocarbam 2021-07 Yes [id number] 500mg Take 1 [facility] oL 500 mg 0-06 tablet by [facility] o f tablet 00:00: mouth 00 (four) Medical times Branch daily as needed (muscle spasms). ibuprofen 2021-07 Yes [id number] 600mg Take 1 [facility] 600 mg 0-06 tablet by [facility] of tablet 00:00: mouth [place] 00 every 6 Medical (six) Branch hours as needed for Pain (scale 4-6). acetaminoph 2021-07 Yes [id number] 1000mg Take 2 [facility] en 500 mg 0-06 tablets by [facility] of tablet 00:00: mouth [place] 00 every 8 Medical (eight) Branch hours as needed for Pain. traZODone 2021-07 Yes 50mg Take 1 [facility] 50 mg 0-06 tablet by [facility] of tablet 00:00: mouth at [place] 00 bedtime. Medical Branch methocarbam 2021-07 Yes [id number] 500mg Take 1 [facility] oL 500 mg 0-06 tablet by [facility] o f tablet 00:00: mouth 4 00 (four) Medical times Branch daily as needed (muscle spasms). ibuprofen 2021-07 Yes [id number] 600mg Take 1 [facility] 600 mg 0-06 tablet by [facility] of tablet 00:00: mouth [place] 00 every 6 Medical (six) Branch hours as needed for Pain (scale 4-6). acetaminoph 2021-07 Yes [id number] 1000mg Take 2 [facility] en 500 mg 0-06 tablets by [facility] of tablet 00:00: mouth [place] 00 every 8 Medical (eight) Branch hours as needed for Pain. traZODone 2021-07 Yes 50mg Take 1 [facility] 50 mg 0-06 tablet by [facility] of tablet 00:00: mouth at [place] 00 bedtime. Medical Branch methocarbam 2021-07 Yes [id number] 500mg Take 1 [facility] oL 500 mg 0-06 tablet by [facility] o f tablet 00:00: mouth (four) Medical times Branch daily as needed (muscle spasms). ibuprofen 2021-07 Yes [id number] 600mg Take 1 [facility] 600 mg 0-06 tablet by [facility] of tablet 00:00: mouth [place] 00 every 6 Medical (six) Branch hours as needed for Pain (scale 4-6). acetaminoph 2021-07 Yes [id number] 1000mg Take 2 [facility] en 500 mg 0-06 tablets by [facility] of tablet 00:00: mouth [place] 00 every 8 Medical (eight) Branch hours as needed for Pain. traZODone 2021-07 Yes 50mg Take 1 [facility] 50 mg 0-06 tablet by [facility] of tablet 00:00: mouth at [place] 00 bedtime. Medical Branch methocarbam 2021-07 Yes [id number] 500mg Take 1 [facility] oL 500 mg 0-06 tablet by [facility] o f tablet 00:00: mouth 4 00 (four) Medical times Branch daily as needed (muscle spasms). ibuprofen 2021-07 Yes [id number] 600mg Take 1 [facility] 600 mg 0-06 tablet by [facility] of tablet 00:00: mouth [place] 00 every 6 Medical (six) Branch hours as needed for Pain (scale 4-6). acetaminoph 2021-07 Yes [id number] 1000mg Take 2 [facility] en 500 mg 0-06 tablets by [facility] of tablet 00:00: mouth [place] 00 every 8 Medical (eight) Branch hours as needed for Pain. traZODone 2021-07 Yes 50mg Take 1 [facility] 50 mg 0-06 tablet by [facility] of tablet 00:00: mouth at [place] 00 bedtime. Medical Branch methocarbam 2021-07 Yes [id number] 500mg Take 1 [facility] oL 500 mg 0-06 tablet by [facility] o f tablet 00:00: mouth (four) Medical times Branch daily as needed (muscle spasms). ibuprofen 2021-07 Yes [id number] 600mg Take 1 [facility] 600 mg 0-06 tablet by ity of tablet 00:00: mouth [place] 00 every 6 Medical (six) Branch hours as needed for Pain (scale 4-6). acetaminoph 2021-07 Yes [id number] 1000mg Take 2 [facility] en 500 mg 0-06 tablets by ity of tablet 00:00: mouth [place] 00 every 8 Medical (eight) Branch hours as needed for Pain. traZODone 2021-07 Yes 50mg Take 1 [facility] 50 mg 0-06 tablet by ity of tablet 00:00: mouth at [place] 00 bedtime. Medical Branch methocarbam 2021-07 Yes [id number] 500mg Take 1 [facility] oL 500 mg 0-06 tablet by ity o f tablet 00:00: mouth 00 (four) Medical times Branch daily as needed (muscle spasms). ibuprofen 2021-07 Yes [id number] 600mg Take 1 [facility] 600 mg 0-06 tablet by ity of tablet 00:00: mouth [place] 00 every 6 Medical (six) Branch hours as needed for Pain (scale 4-6). acetaminoph 2021-07 Yes [id number] 1000mg Take 2 [facility] en 500 mg 0-06 tablets by ity of tablet 00:00: mouth [place] 00 every 8 Medical (eight) Branch hours as needed for Pain. traZODone 2021-07 Yes 50mg Take 1 [facility] 50 mg 0-06 tablet by ity of tablet 00:00: mouth at [place] 00 bedtime. Medical Branch methocarbam 2021-07 Yes [id number] 500mg Take 1 [facility] oL 500 mg 0-06 tablet by ity o f tablet 00:00: mouth 4 [place] 00 (four) Medical times Branch daily as needed (muscle spasms). ibuprofen 2021-07 Yes [id number] 600mg Take 1 [facility] 600 mg 0-06 tablet by ity of tablet 00:00: mouth [place] 00 every 6 Medical (six) Branch hours as needed for Pain (scale 4-6). acetaminoph 2021-07- No [id number] 1000mg Take 2 [facility] en 500 mg 0-06 11-29 tablets by ity of tablet 00:00: 00:00 mouth [place] 00 :00 every 8 Medical (eight) Branch hours as needed for Pain. traZODone 2021-07- No 50mg Take 1 Un[facility] rs 50 mg 0-06 11-29 tablet by ity of tablet 00:00: 00:00 mouth at [place] 00 :00 bedtime. Medical Branch methocarbam 2021-07- No [id number] 500mg Take 1 [facility] oL 500 mg 0-06 11-29 tablet by ity of tablet 00:00: 00:00 mouth 4 [place] 00 :00 (four) Medical times Branch daily as needed (muscle spasms). ibuprofen 2021-07- No [id number] 600mg Take 1 [facility] 600 mg 0-06 11-29 tablet by ity of tablet 00:00: 00:00 mouth [place] 00 :00 every 6 Medical (six) Branch hours as needed for Pain (scale 4-6). acetaminoph 2021-07- No [id number] 1000mg Take 2 [facility] en 500 mg 0-06 11-29 tablets by ity of tablet 00:00: 00:00 mouth [place] 00 :00 every 8 Medical (eight) Branch hours as needed for Pain. traZODone 2021-07- No 50mg Take 1 [facility] rs 50 mg 0-06 11-29 tablet by ity of tablet 00:00: 00:00 mouth at [place] 00 :00 bedtime. Medical Branch methocarbam 2021-07- No [id number] 500mg Take 1 [facility] oL 500 mg 0-06 11-29 tablet by ity of tablet 00:00: 00:00 mouth 4 [place] 00 :00 (four) Medical times Branch daily as needed (muscle spasms). ibuprofen 2021-07- No [id number] 600mg Take 1 [facility] 600 mg 0-06 11-29 tablet by ity of tablet 00:00: 00:00 mouth [place] 00 :00 every 6 Medical (six) Branch hours as needed for Pain (scale 4-6). acetaminoph 2021-07- No [id number] 1000mg Take 2 [facility] en 500 mg 0-06 11-29 tablets by ity of tablet 00:00: 00:00 mouth [place] 00 :00 every 8 Medical (eight) Branch hours as needed for Pain. traZODone 2021-07- No 50mg Take 1 [facility] rs 50 mg 0-06 -29 tablet by ity of tablet 00:00: 00:00 mouth at [place] 00 :00 bedtime. Medical Branch methocarbam 2021-07- No [id number] 500mg Take 1 [facility] oL 500 mg 0-12 11-29 tablet by ity of tablet 00:00: 00:00 mouth 4 [place] 00 :00 (four) Medical times Branch daily as needed (muscle spasms). ibuprofen 2021-07- No [id number] 600mg Take 1 [facility] 600 mg 0-06 -29 tablet by ity of tablet 00:00: 00:00 mouth [place] 00 :00 every 6 Medical (six) Branch hours as needed for Pain (scale 4-6). acetaminoph 2021-07- No [id number] 1000mg Take 2 [facility] en 500 mg 0-06 -29 tablets by ity of tablet 00:00: 00:00 mouth [place] 00 :00 every 8 Medical (eight) Branch hours as needed for Pain. traZODone 2021-07- No 50mg Take 1 [facility] rs 50 mg 0-06 -29 tablet by ity of tablet 00:00: 00:00 mouth at [place] 00 :00 bedtime. Medical Branch methocarbam 2021-07- No [id number] 500mg Take 1 [facility] oL 500 mg 0-06 -29 tablet by ity of tablet 00:00: 00:00 mouth 4 [place] 00 :00 (four) Medical times Branch daily as needed (muscle spasms). ibuprofen 2021-07- No [id number] 600mg Take 1 [facility] 600 mg 0-06 -29 tablet by ity of tablet 00:00: 00:00 mouth [place] 00 :00 every 6 Medical (six) Branch hours as needed for Pain (scale 4-6). acetaminoph 2021-07- No [id number] 1000mg Take 2 [facility] en 500 mg 0-06 -29 tablets by ity of tablet 00:00: 00:00 mouth [place] 00 :00 every 8 Medical (eight) Branch hours as needed for Pain. traZODone 2021-07- No 50mg Take 1 [facility] rs 50 mg 0-12 11-29 tablet by ity of tablet 00:00: 00:00 mouth at [place] 00 :00 bedtime. Medical Branch methocarbam 2021-07- No [id number] 500mg Take 1 [facility] oL 500 mg 0-12 11- tablet by ity of tablet 00:00: 00:00 mouth 4 [place] 00 :00 (four) Medical times Branch daily as needed (muscle spasms). ibuprofen 2021-07- No [id number] 600mg Take 1 [facility] 600 mg 0-12 11-29 tablet by ity of tablet 00:00: 00:00 mouth [place] 00 :00 every 6 Medical (six) Branch hours as needed for Pain (scale 4-6). acetaminoph 2021-07- No [id number] 1000mg Take 2 [facility] en 500 mg 0-12 11-29 tablets by ity of tablet 00:00: 00:00 mouth [place] 00 :00 every 8 Medical (eight) Branch hours as needed for Pain. traZODone 2021-07- No 50mg Take 1 [facility] rs 50 mg 0-12 11-29 tablet by ity of tablet 00:00: 00:00 mouth at [place] 00 :00 bedtime. Medical Branch methocarbam 2021-07- No [id number] 500mg Take 1 [facility] oL 500 mg 0-06 -29 tablet by ity of tablet 00:00: 00:00 mouth 4 [place] 00 :00 (four) Medical times Branch daily as needed (muscle spasms). ibuprofen 2021-07- No [id number] 600mg Take 1 [facility] 600 mg 0-06 [...] 04/06/22 at 1145, Until Discontinu ed, Routine
member of the legislative council approving Non-formul freddie medication : KEAGAN LUO
[...] Until Discontinu ed, Routine, Pain (scale 7-10)<b r>member of the legislative council approving Restricted medication : KEAGAN LUO celecoxib [...] 00 mon Medical 1,000 mg 04/06/22 at [facility] h 0800, Until Discontinu ed, [...] mg 00 :08 First dose Medical on Mon4/22 at 0800, Until Discontinu ed, Routine acetaminoph [...] mg 51 :08 Starting Medical on Mon [place] 04/04/22 at 1822, Until Mon04/05/22 at 0914, Routine, Pain (scale 7-10) HYDROcodone 2021-07 No 1{tbl} 1 tablet, Univers -acetaminop 0-03 10-04 Oral, ity of hen (NORCO 23:22: 14:14 Q6HPRN, [place] 5) 5-325 mg 51 :08 Starting Medi torito tablet 1 on Mon [place] tablet 04/04/22 at 1822, Until Mon04/05/22 at 0914, Routine, Pain (scale 4-6) FENTanyl PF 2021-07 No 50ug 50 mcg, Un [place] (SUBLIMAZE 0-03 10-03 Slow IV ity o f (PF)) 22:00: 21:05 Push, [place] injection 00 :00 ONCE, 1 Medical 50 mcg dose, On [place] Mon04/04/22 at 1700, Routine FENTanyl PF 2021-07 No 50ug 50 mcg, Un [place] (SUBLIMAZE 0-03 10-03 Slow IV ity o f (PF)) 20:30: 19:32 Push, [place] injection 00 :00 ONCE, 1 Medical 50 mcg dose, On [facility] 04/04/22 at 1530, Routine ondansetron 2021-07 No 4mg 4 mg, Slow Univers (ZOFRAN 0- 10- IV Push, ity of (PF)) 19:45: 19:32 ONCE, 1 [place] injection 4 00 :00 dose, On Medi torito mg Mon Branch 04/04/22 at 1445, ARLEN iopamidol 2021-07- No [id number] 80mL 80 mL, Univers (ISOVUE 004-04 Intravenou [...] 03/31/22 at 2315, ARLEN ARIPiprazol 0 Yes [id number] 300mg 300 mg by Univers e (ABILIFY 9-15 Intramuscu ity of MAINTENA) 00:00: lar route [place] 300 mg sers 00 once every Me dical month. Branch ARIPiprazol 2021-0 Yes 300mg 300 mg by Univers e (ABILIFY 9-15 Intramuscu ity of MA[facility]TENA) 00:00: lar route [place] 300 mg sers 00 once every Me dical month. Branch ARIPiprazol 2021-0 Yes [id number] 300mg 300 mg by Univers e (ABILIFY 9-15 Intramuscu ity of [facility]TE[facility]) 00:00: lar route [place] 300 mg sers 00 once every Me dical month. Branch ARIPiprazol 2021-0 Yes 300mg 300 mg by Univers e (ABILIFY 9-15 Intramuscu ity of [facility]TE[facility]) 00:00: lar route [place] 300 mg sers 00 once every Me dical month. Branch ARIPiprazol 2022-0 Yes [id number] 300mg 300 mg by Univers e (ABILIFY 9-15 Intramuscu ity of [facility]TE[facility]) 00:00: lar route [place] 300 mg sers 00 once every Me dical month. Branch ARIPiprazol 2-0 Yes 300mg 300 mg by Univers e (ABILIFY 9-15 Intramuscu ity of [facility]TE[facility]) 00:00: lar route [place] 300 mg sers 00 once every Me dical month. Branch ARIPiprazol 2-0 Yes [id number] 300mg 300 mg by Univers e (ABILIFY 9-15 Intramuscu ity of [facility]TE[facility]) 00:00: lar route [place] 300 mg sers 00 once every Me dical month. Branch ARIPiprazol 2-0 Yes 300mg 300 mg by Univers e (ABILIFY 9-15 Intramuscu ity of [facility]TE[facility]) 00:00: lar route [place] 300 mg sers 00 once every Me dical month. Branch ARIPiprazol 2-0 Yes [id number] 300mg 300 mg by Univers e (ABILIFY 9-15 Intramuscu ity of [facility]) 00:00: lar route [place] 300 mg sers 00 once every Me dical month. Branch ARIPiprazol 2-0 Yes 300mg 300 mg by Univers e (ABILIFY 9-15 Intramuscu ity of [facility]TE[facility]) 00:00: lar route [place] 300 mg sers 00 once every Me dical month. Branch ARIPiprazol 2022-0 Yes [id number] 300mg 300 mg by Univers e (ABILIFY 9-15 Intramuscu ity of [facility]TE[facility]) 00:00: lar route [place] 300 mg sers 00 once every Me dical month. Branch ARIPiprazol 2022-0 Yes 300mg 300 mg by Univers e (ABILIFY 9-15 Intramuscu ity of [facility]) 00:00: lar route [place] 300 mg sers 00 once every Me dical month. Branch ARIPiprazol 2022-0 Yes [id number] 300mg 300 mg by Univers e (ABILIFY 9-15 Intramuscu ity of [facility]) 00:00: lar route [place] 300 mg sers 00 once every Me dical month. Branch ARIPiprazol 2021-0 Yes 300mg 300 mg by Univers e (ABILIFY 9-15 Intramuscu ity of [facility]) 00:00: lar route [place] 300 mg sers 00 once every Me dical month. Branch ARIPiprazol 2021-0 Yes [id number] 300mg 300 mg by Univers e (ABILIFY 9-15 Intramuscu ity of [facility]) 00:00: lar route [place] 300 mg sers 00 once every Me dical month. Branch ARIPiprazol 2021-0 Yes [id number] 300mg 300 mg by Univers e (ABILIFY 9-15 Intramuscu ity of [facility]) 00:00: lar route [place] 300 mg sers 00 once every Me dical month. Branch ARIPiprazol 2021-0 Yes [id number] 300mg 300 mg by Univers e (ABILIFY 9-15 Intramuscu ity of [facility]) 00:00: lar route [place] 300 mg sers 00 once every Me dical month. Branch ARIPiprazol 2021-0 Yes [id number] 300mg 300 mg by Univers e (ABILIFY 9-15 Intramuscu ity of [facility]) 00:00: lar route [place] 300 mg sers 00 once every Me dical month. Branch ARIPiprazol 2021-0 Yes [id number] 300mg 300 mg by Univers e (ABILIFY 9-15 Intramuscu ity of [facility]) 00:00: lar route [place] 300 mg sers 00 once every Me dical month. Branch ARIPiprazol 2-0 Yes [id number] 300mg 300 mg by Univers e (ABILIFY [...] e ([facility]ILIFY 03-[address] [facility] 00:[facility]: 00:00 lar route [place] 300 mg sers 00 :00 once every Me dical month. Branch ARIPiprazol 2021-0 2022- No 300mg 300 mg by Univers e (ABILIFY 03-[address] [facility] [address] [facility] 00:00: 00:00 lar route [place] 300 mg sers 00 :00 once every Me dical month. Branch ARIPiprazol 2-0 2022- No 300mg 300 mg by Univers e (ABILIFY 03-17 Intramuscu it y of [facility]) 00:00: 00:00 lar route [place] 300 mg sers 00 :00 once every Me dical month. Branch ARIPiprazol 2-0 2022- No 300mg 300 mg by Univers e (ABILIFY 03-[address] [facility] [address] [facility] 00:00: 00:00 lar route [place] 300 mg sers 00 :00 once every Me dical month. Branch ARIPiprazol 2-0 2022- No 300mg 300 mg by Univers e (ABILIFY 03-17 [facility] 00:00: 00:00 lar route [place] 300 mg sers 00 :00 once every Me dical month. Branch ARIPiprazol 2022-0 2022- No 300mg 300 mg by Univers e (ABILIFY 03-[address] [facility] [address] [facility] 00:00: 00:00 lar route [place] 300 mg sers 00 :00 once every Me dical month. Branch ARIPiprazol 2022-0 2022- No 300mg 300 mg by Univers e (ABILIFY 03-[address] [facility] 00:00: 00:00 lar route [place] [...] (ABILIFY 03-17 Intramuscu it y of [facility]) 00:00: 00:00 lar route [place] 300 mg sers 00 :00 once every Me dical month. Branch ARIPiprazol 2021- No 300mg 300 mg by Univers e (ABILIFY 03-17 Intramuscu it y [facility]) 00:00: 00:00 lar route [place] 300 mg sers 00 :00 once every Me dical month. Branch ARIPiprazol 2021- No [id number] 10mg Take 1 U nivers e 10 mg 9-08 10-09 tablet by ity of tablet 00:00: 04:59 mouth in [place] 00 :00 the Medical morning [place] for 30 days. ARIPiprazol 2021- No [id number] 10mg Take 1 U nivers e 10 mg 9-08 10-09 tablet by ity of tablet 00:00: 04:59 mouth in [place] 00 :00 [facility] morning Branch for 30 days. ARIPiprazol 2021-2021- No [id number] 10mg Take 1 U nivers e 10 mg 9-08 10-09 tablet by ity of tablet 00:00: 04:59 mouth in [place] 00 :00 [facility] morning Branch for 30 days. ARIPiprazol 2021-2- No [id number] 10mg Take 1 U nivers e 10 mg 9-08 10-09 tablet by ity of tablet 00:00: 04:59 mouth in [place] 00 :00 [facility] morning [place] for 30 days. ARIPiprazol 2021-2021- No [id number] 10mg Take 1 U nivers e 10 mg 9-08 10-09 tablet by ity of tablet 00:00: 04:59 mouth in [place] 00 :00 [facility] morning [place] for 30 days. ARIPiprazol 2021-2021- No [id number] 10mg Take 1 U nivers e 10 mg 9-08 10-09 tablet by ity of tablet 00:00: 04:59 mouth in [place] 00 :00 [facility] for 30 days. ARIPiprazol 2021-0 2- No [id number] 10mg Take 1 U nivers e 10 mg 9-08 10-09 tablet by ity of tablet 00:00: 04:59 mouth in [place] 00 :00 the [facility] for 30 days. ARIPiprazol 2021-0 2- No [id number] 10mg Take 1 U nivers e 10 mg 9-08 10-09 tablet by ity of tablet 00:00: 04:59 mouth in [place] 00 :00 the [facility] for 30 days. ARIPiprazol 2021-0 2- No [id number] 10mg Take 1 U nivers e 10 mg 9-08 10-09 tablet by ity of tablet 00:00: 04:59 mouth in [place] 00 :00 the [facility] for 30 days. ARIPiprazol 2021-2- No [id number] 10mg Take 1 U nivers e 10 mg 9-08 10-09 tablet by ity of tablet 00:00: 04:59 mouth in [place] 00 :00 [facility] for 30 days. ARIPiprazol 2021-2021- No [id number] 10mg Take 1 U nivers e 10 mg 9-08 10-09 tablet by ity of tablet 00:00: 04:59 mouth in [place] 00 :00 [facility] for 30 days. ARIPiprazol 2021-2021- No [id number] 10mg Take 1 U nivers e 10 mg 9-08 10-09 tablet by ity of tablet 00:00: 04:59 mouth in [place] 00 :00 [facility] for 30 days. ARIPiprazol 2021-0 2021- No [id number] 10mg Take 1 U nivers e 10 mg 9-08 10-09 tablet by ity of tablet 00:00: 04:59 mouth in [place] 00 :00 [facility] for 30 days. ARIPiprazol 2021-0 2- No [id number] 10mg Take 1 U nivers e 10 mg 9-08 10-09 tablet by ity of tablet 00:00: 04:59 mouth in [place] 00 :00 [facility] for 30 days. ARIPiprazol 2021-0 2- No [id number] 10mg Take 1 U nivers e 10 mg 9-08 10-09 tablet by ity of tablet 00:00: 04:59 mouth in [place] 00 :00 [facility] morning [facility] for 30 days. ARIPiprazol No [id number] 10mg Take 1 U nivers e 10 mg 9-08 10-09 tablet by ity of tablet 00:00: 04:59 mouth in [place] 00 :00 [facility] morning Branch for 30 days. ARIPiprazol 2021- No [id number] 10mg Take 1 U nivers e 10 mg 9-08 10-09 tablet by ity of tablet 00:00: 04:59 mouth in [place] 00 :00 [facility] morning Branch for 30 days. ARIPiprazol 2021- No [id number] 10mg Take 1 U nivers e 10 mg 9-08 10-09 tablet by ity of tablet 00:00: 04:59 mouth in [place] 00 :00 [facility] morning Branch for 30 days. ARIPiprazol 2021- No [id number] 10mg Take 1 U nivers e 10 mg 9-08 10-09 tablet by ity of tablet 00:00: 04:59 mouth in [place] 00 :00 [facility] morning [place] for 30 days. ARIPiprazol 2021- No [id number] 10mg Take 1 U nivers e 10 mg 9-08 10-09 tablet by ity of tablet 00:00: 04:59 mouth in [place] 00 :00 [facility] morning Branch for 30 days. ARIPiprazol 2021- No [id number] 10mg Take 1 U nivers e 10 mg 9-08 10-09 tablet by ity of tablet 00:00: 04:59 mouth in [place] 00 :00 [facility] morning [place] for 30 days. ARIPiprazol 2021-2021- No [id number] 10mg Take 1 U nivers e 10 mg 9-08 10-09 tablet by ity of tablet 00:00: 04:59 mouth in [place] 00 :00 [facility] morning Branch for 30 days. ARIPiprazol 2021-2021- No [id number] 10mg Take 1 U nivers e 10 mg 9-08 10-09 tablet by ity of tablet 00:00: 04:59 mouth in [place] 00 :00 the Medical morning [place] for 30 days. ARIPiprazol 2021-2021- No [id number] 10mg Take 1 U nivers e 10 mg 9-08 10-09 tablet by ity of tablet 00:00: 04:59 mouth in [place] 00 :00 the [facility] for 30 days. ARIPiprazol 2021-2021- No [id number] 10mg Take 1 U nivers e 10 mg 9-08 10-09 tablet by ity of tablet 00:00: 04:59 mouth in [place] 00 :00 the [facility] for 30 days. ARIPiprazol 2021-2021- No [id number] 10mg Take 1 U nivers e 10 mg 9-08 10-09 tablet by ity of tablet 00:00: 04:59 mouth in [place] 00 :00 the [facility] for 30 days. ARIPiprazol 2021-2021- No [id number] 10mg Take 1 U nivers e 10 mg 9-08 10-09 tablet by ity of tablet 00:00: 04:59 mouth in [place] 00 :00 the [facility] for 30 days. ARIPiprazol 2021-2021- No [id number] 10mg Take 1 U nivers e 10 mg 9-08 10-09 tablet by ity of tablet 00:00: 04:59 mouth in [place] 00 :00 the [facility] for 30 days. ARIPiprazol 2021-2021- No [id number] 300mg 300 mg by Univers e (ABILIF03-09 Intramuscu it y of [facility]) 00:00: 05:59 lar route [place] 300 mg sers 00 :00 once every Me dical month for Branch 90 days. ARIPiprazol 2021-2021- No [id number] 300mg 300 mg by Univers e (ABILIF03-09 Intramuscu it y of [facility]) 00:00: 00:00 lar route [place] 300 mg sers 00 :00 once every Me dical month for Branch 90 days. ARIPiprazol 2021-2021- No [id number] 300mg 300 mg by Univers e (ABILIFY 03-09 Intramuscu it y of [facility]) 00:00: 00:00 lar route [place] 300 mg sers 00 :00 once every Me dical month for Branch 90 days. ARIPiprazol 2021-2021- No [id number] 300mg 300 mg by Univers e (ABILIY 03-09 Intramuscu it y of [facility]) 00:00: 00:00 lar route [place] 300 mg sers 00 :00 once every Me dical month for Branch 90 days. ARIPiprazol 2021-2021- No [id number] 300mg 300 mg by Univers e (ABILI 03-09 Intramuscu it y of [facility]) 00:00: 00:00 lar route [place] 300 mg sers 00 :00 once every Me dical month for Branch 90 days. ARIPiprazol 2021-2021- No [id number] 300mg 300 mg by Univers e (ABILI 03-09 Intramuscu it y of [facility]) 00:00: 00:00 lar route [place] 300 mg sers 00 :00 once every Me dical month for Branch 90 days. QUEtiapine 2021-2021- No [id number] 50mg Take 1 Un [place] 50 mg 7-18 09-08 tablet by ity of tablet 00:00: 00:00 mouth in [place] 00 :00 the Medical morning Branch and 1 tablet in the evening. Do all this for 60 days. QUEtiapine 2021-0 2- No [id number] 50mg Take 1 Un [place] 50 mg 7-18 -08 tablet by ity of tablet 00:00: 00:00 mouth in [place] 00 :00 the Medical morning Branch and 1 tablet in the evening. Do all this for 60 days. QUEtiapine 2021-0 2021- No [id number] 50mg Take 1 Un [place] 50 mg 7-18 09-08 tablet by ity of tablet 00:00: 00:00 mouth in [place] 00 :00 the Medical morning Branch and 1 tablet in the evening. Do all this for 60 days. QUEtiapine 2021-0 2- No [id number] 50mg Take 1 Un [place] 50 mg 7-18 09-08 tablet by ity of tablet 00:00: 00:00 mouth in [place] 00 :00 the Medical morning Branch and 1 tablet in the evening. Do all this for 60 days. QUEtiapine 2021- No [id number] 50mg Take 1 Un [place] 50 mg 01-17 tablet by ity of tablet 00:00: 00:00 mouth in [place] 00 :00 the Medical morning Branch and 1 tablet in the evening. Do all this for 60 days. lithium 2021- No [id number] 300mg Take 1 U nivers carbonate 12-07 tablet by ity of CR 300 mg 00:00: 04:59 mouth at [place] SR tablet 00 :00 bedtime Medical for 90 Branch days. lithium No [id number] 450mg Take 1 U nivers carbonate 12-07 tablet by ity of CR 450 mg 00:00: 04:59 mouth [place] SR tablet 00 :00 every Medical morning Branch for 90 days. lithium No [id number] 300mg Take 1 U nivers carbonate 12-07 tablet by ity of CR 300 mg 00:00: 04:59 mouth at [place] SR tablet 00 :00 bedtime Medical for 90 Branch days. lithium No [id number] 450mg Take 1 U nivers carbonate 12-07 tablet by ity of CR 450 mg 00:00: 04:59 mouth [place] SR tablet 00 :00 every Medical morning Branch for 90 days. lithium 2021- No [id number] 300mg Take 1 U nivers carbonate 12-07 tablet by ity of CR 300 mg 00:00: 04:59 mouth at [place] SR tablet 00 :00 bedtime Medical for 90 Branch days. lithium 2021- No [id number] 450mg Take 1 U nivers carbonate 12-07 tablet by ity of CR 450 mg 00:00: 04:59 mouth [place] SR tablet 00 :00 every Medical morning Branch for 90 days. lithium 2021- No [id number] 300mg Take 1 U nivers carbonate 12-07 tablet by ity of CR 300 mg 00:00: 04:59 mouth at [place] SR tablet 00 :00 bedtime Medical for 90 Branch days. lithium 2021- No [id number] 450mg Take 1 U nivers carbonate 12-07 tablet by ity of CR 450 mg 00:00: 04:59 mouth [place] SR tablet 00 :00 every Medical morning Branch for 90 days. lithium 2021- No [id number] 300mg Take 1 U nivers carbonate 12-07 tablet by ity of CR 300 mg 00:00: 04:59 mouth at [place] SR tablet 00 :00 bedtime Medical for 90 Branch days. lithium 2021- No [id number] 450mg Take 1 U nivers carbonate 12-07 tablet by ity of CR 450 mg 00:00: 04:59 mouth [place] SR tablet 00 :00 every Medical morning Branch for 90 days. miSOPROStoL Yes [id number] 200ug Take 1 [facility] 200 mcg 4-29 tablet by ity of tablet 00:00: mouth SEE-INSTRU Medical CTIONS. Branch Take one tab the night before and one tab the morning of procedure miSOPROStoL Yes [id number] 200ug Take 1 [facility] 200 mcg 4-29 tablet by ity of tablet 00:00: mouth SEE-INSTRU Medical CTIONS. Branch Take one tab the night before and one tab the morning of procedure miSOPROStoL 0 Yes [id number] 200ug Take 1 [facility] 200 mcg 4-29 tablet by ity of tablet 00:00: mouth SEE-INSTRU Medical CTIONS. Branch Take one tab the night before and one tab the morning of procedure miSOPROStoL 2021-0 Yes [id number] 200ug Take 1 [facility] 200 mcg 4-29 tablet by ity of tablet 00:00: mouth SEE-INSTRU Medical CTIONS. Branch Take one tab the night before and one tab the morning of procedure miSOPROStoL 2021-0 Yes [id number] 200ug Take 1 [facility] 200 mcg 4-29 tablet by ity of tablet 00:00: mouth SEE-INSTRU Medical CTIONS. Branch Take one tab the night before and one tab the morning of procedure miSOPROStoL 2021-0 Yes [id number] 200ug Take 1 [facility] 200 mcg 4-29 tablet by ity of tablet 00:00: mouth SEE-INSTRU Medical CTIONS. Branch Take one tab the night before and one tab the morning of procedure miSOPROStoL Yes [id number] 200ug Take 1 [facility] 200 mcg 4-29 tablet by ity of tablet 00:00: mouth SEE-INSTRU Medical CTIONS. Branch Take one tab the night before and one tab the morning of procedure miSOPROStoL Yes [id number] 200ug Take 1 [facility] 200 mcg 4-29 tablet by ity of tablet 00:00: mouth SEE-INSTRU Medical CTIONS. Branch Take one tab the night before and one tab the morning of procedure miSOPROStoL Yes [id number] 200ug Take 1 [facility] 200 mcg 4-29 tablet by ity of tablet 00:00: mouth SEE-INSTRU Medical CTIONS. Branch Take one tab the night before and one tab the morning of procedure miSOPROStoL 2021- No [id number] 200ug Take 1 [facility] 200 mcg 4-29 10-06 tablet by ity of tablet 00:00: 00:00 [facility] 00 :00 SEE-INSTRU Medical CTIONS. Branch Take one tab the night before and one tab the morning of procedure miSOPROStoL 2021- No [id number] 200ug Take 1 [facility] 200 mcg 4-29 10-06 tablet by ity of tablet 00:00: 00:00 [facility] 00 : SEE-INSTRU Medical CTIONS. Branch Take one tab the night before and one tab the morning of procedure miSOPROStoL 2021- No [id number] 200ug Take 1 [facility] 200 mcg 4-29 10-06 tablet by ity of tablet 00:00: 00:00 [facility] 00 :00 SEE-INSTRU Medical CTIONS. Branch Take one tab the night before and one tab the morning of procedure miSOPROStoL 2021- No [id number] 200ug Take 1 [facility] 200 mcg 4-29 10-06 tablet by ity of tablet 00:00: 00:00 [facility] 00 :00 SEE-INSTRU Medical CTIONS. Branch Take one tab the night before and one tab the morning of procedure miSOPROStoL 2021- No [id number] 200ug Take 1 [facility] 200 mcg 4-29 10-06 tablet by ity of tablet 00:00: 00:00 [facility] [place] 00 :00 SEE-INSTRU Medical CTIONS. Branch Take one tab the night before and one tab the morning of procedure miSOPROStoL 2021- No [id number] 200ug Take 1 [facility] 200 mcg 4-29 10-06 tablet by ity of tablet 00:00: 00:00 [facility] [place] 00 :00 SEE-INSTRU Medical CTIONS. Branch Take one tab the night before and one tab the morning of procedure miSOPROStoL 2021- No [id number] 200ug Take 1 [facility] 200 mcg 4-29 10-06 tablet by ity of tablet 00:00: 00:00 [facility] [place] 00 :00 SEE-INSTRU Medical CTIONS. Branch Take one tab the night before and one tab the morning of procedure miSOPROStoL 2021- No [id number] 200ug Take 1 [facility] 200 mcg 4-29 10-06 tablet by ity of tablet 00:00: 00:00 [facility] 00 :00 SEE-INSTRU Medical CTIONS. Branch Take one tab the night before and one tab the morning of procedure miSOPROStoL 2021- No [id number] 200ug Take 1 [facility] 200 mcg 4-29 10-06 tablet by ity of tablet 00:00: 00:00 [facility] 00 :00 SEE-INSTRU Medical CTIONS. Branch Take one tab the night before and one tab the morning of procedure miSOPROStoL 2021- No [id number] 200ug Take 1 [facility] 200 mcg 4-29 10-06 tablet by ity of tablet 00:00: 00:00 [facility] 00 :00 SEE-INSTRU Medical CTIONS. Branch Take one tab the night before and one tab the morning of procedure miSOPROStoL 2021- No [id number] 200ug Take 1 [facility] 200 mcg 4-29 10-06 tablet by ity of tablet 00:00: 00:00 [facility] 00 :00 SEE-INSTRU Medical CTIONS. Branch Take one tab the night before and one tab the morning of procedure miSOPROStoL 2021- No [id number] 200ug Take 1 [facility] 200 mcg 4-29 10-06 tablet by ity of tablet 00:00: 00:00 mouth [place] 00 :00 SEE-INSTRU Medical CTIONS. Branch Take one tab the night before and one tab the morning of procedure miSOPROStoL 2021- No [id number] 200ug Take 1 [facility] 200 mcg 4-29 10-06 tablet by ity of tablet 00:00: 00:00 [facility] [place] 00 :00 SEE-INSTRU Medical CTIONS. Branch Take one tab the night before and one tab the morning of procedure miSOPROStoL 2021- No [id number] 200ug Take 1 [facility] 200 mcg 4-29 10-06 tablet by ity of tablet 00:00: 00:00 [facility] [place] 00 :00 SEE-INSTRU Medical CTIONS. Branch Take one tab the night before and one tab the morning of procedure miSOPROStoL 2021- No [id number] 200ug Take 1 [facility] 200 mcg 4-29 10-06 tablet by ity of tablet 00:00: 00:00 [facility] [place] 00 :00 SEE-INSTRU Medical CTIONS. Branch Take one tab the night before and one tab the morning of procedure miSOPROStoL 2021- No [id number] 200ug Take 1 [facility] 200 mcg 4-29 10-06 tablet by ity of tablet 00:00: 00:00 [facility] 00 :00 SEE-INSTRU Medical CTIONS. Branch Take one tab the night before and one tab the morning of procedure miSOPROStoL 2021- No [id number] 200ug Take 1 [facility] 200 mcg 4-29 10-06 tablet by ity of tablet 00:00: 00:00 [facility] 00 :00 SEE-INSTRU Medical CTIONS. Branch Take one tab the night before and one tab the morning of procedure miSOPROStoL 2021- No [id number] 200ug Take 1 [facility] 200 mcg 4-29 10-06 tablet by ity of tablet 00:00: 00:00 [facility] 00 :00 SEE-INSTRU Medical CTIONS. Branch Take one tab the night before and one tab the morning of procedure Immunizations Ordered Immunization Filled Immunization Date Status Commen ts Source Name Name SARS-COV-2 COVID-2022-03-17 Completed Unive rsity of MIKE-SUCROSE VACCINE 00:00:00 [facility] 14 YRS+, BIVALENT Branch 0.3ML, IM, (PFIZER ARITA TOP BOOSTER) SARS-COV-2 COVID-19 2022-03-17 Completed Unive rsity of MIKE-SUCROSE VACCINE 00:00:00 [facility] 14 YRS+, BIVALENT Branch 0.3ML, IM, (PFIZER ARITA TOP BOOSTER) SARS-COV-2 COVID-19 2022-03-17 Completed Unive rsity of MIKE-SUCROSE VACCINE 00:00:00 [facility] 14 YRS+, BIVALENT Branch 0.3ML, IM, (PFIZER ARITA TOP BOOSTER) SARS-COV-2 COVID-19 2022-03-17 Completed Unive rsity of MIKE-SUCROSE VACCINE 00:00:00 [facility] 12 YRS+, BIVALENT Branch 0.3ML, IM, (PFIZER ARITA TOP BOOSTER) SARS-COV-2 COVID-19 2022-03-17 Completed Unive rsity of MIKE-SUCROSE VACCINE 00:00:00 [facility] 12 YRS+, BIVALENT Branch 0.3ML, IM, (PFIZER ARITA TOP BOOSTER) SARS-COV-2 COVID-19 2022-03-17 Completed Unive rsity of MIKE-SUCROSE VACCINE 00:00:00 [facility] 12 YRS+, BIVALENT Branch 0.3ML, IM, (PFIZER ARITA TOP BOOSTER) SARS-COV-2 COVID-19 2022-03-17 Completed Unive rsity of MIKE-SUCROSE VACCINE 00:00:00 [facility] 12 YRS+, BIVALENT Branch 0.3ML, IM, (PFIZER ARITA TOP BOOSTER) SARS-COV-2 COVID-19 2022-03-17 Completed Unive rsity of MIKE-SUCROSE VACCINE 00:00:00 [facility] 12 YRS+, BIVALENT Branch 0.3ML, IM, (PFIZER ARITA TOP BOOSTER) SARS-COV-2 COVID-19 2022-03-17 Completed Unive rsity of MIKE-SUCROSE VACCINE 00:00:00 [facility] 12 YRS+, BIVALENT Branch 0.3ML, IM, (PFIZER ARITA TOP BOOSTER) SARS-COV-2 COVID-19 2022-03-17 Completed Unive rsity of MIKE-SUCROSE VACCINE 00:00:00 [facility] 12 YRS+, BIVALENT Branch 0.3ML, IM, (PFIZER ARITA TOP BOOSTER) SARS-COV-2 COVID-19 2022-03-17 Completed Unive rsity of MIKE-SUCROSE VACCINE 00:00:00 [facility] 12 YRS+, BIVALENT Branch 0.3ML, IM, (PFIZER ARITA TOP BOOSTER) SARS-COV-2 COVID-19 2022-03-17 Completed Unive rsity of MIKE-SUCROSE VACCINE 00:00:00 [facility] 12 YRS+, BIVALENT Branch 0.3ML, IM, (PFIZER ARITA TOP BOOSTER) SARS-COV-2 COVID-19 2022-03-17 Completed Unive rsity of MIKE-SUCROSE VACCINE 00:00:00 [facility] 12 YRS+, BIVALENT Branch 0.3ML, IM, (PFIZER ARITA TOP BOOSTER) SARS-COV-2 COVID-19 2022-03-17 Completed Unive rsity of MIKE-SUCROSE VACCINE 00:00:00 [facility] 12 YRS+, BIVALENT Branch 0.3ML, IM, (PFIZER ARITA TOP BOOSTER) SARS-COV-2 COVID-19 2022-03-17 Completed Unive rsity of MIKE-SUCROSE VACCINE 00:00:00 [facility] 12 YRS+, BIVALENT Branch 0.3ML, IM, (PFIZER ARITA TOP BOOSTER) SARS-COV-2 COVID-19 2022-03-17 Completed Unive rsity of MIKE-SUCROSE VACCINE 00:00:00 [facility] 12 YRS+, BIVALENT Branch 0.3ML, IM, (PFIZER ARITA TOP BOOSTER) SARS-COV-2 COVID-19 2022-03-17 Completed Unive rsity of MIKE-SUCROSE VACCINE 00:00:00 [facility] 12 YRS+, BIVALENT Branch 0.3ML, IM, (PFIZER ARITA TOP BOOSTER) SARS-COV-2 COVID-19 2022-03-17 Completed Unive rsity of MIKE-SUCROSE VACCINE 00:00:00 [facility] 12 YRS+, BIVALENT Branch 0.3ML, IM, (PFIZER ARITA TOP BOOSTER) SARS-COV-2 COVID-19 2022-03-17 Completed Unive rsity of MIKE-SUCROSE VACCINE 00:00:00 [facility] 12 YRS+, BIVALENT Branch 0.3ML, IM, (PFIZER ARITA TOP BOOSTER) SARS-COV-2 COVID-19 2022-03-17 Completed Unive rsity of MIKE-SUCROSE VACCINE 00:00:00 [facility] 12 YRS+, BIVALENT Branch 0.3ML, IM, (PFIZER ARITA TOP BOOSTER) SARS-COV-2 COVID-19 2022-03-17 Completed Unive rsity of MIKE-SUCROSE VACCINE 00:00:00 [facility] 12 YRS+, BIVALENT Branch 0.3ML, IM, (PFIZER ARITA TOP BOOSTER) SARS-COV-2 COVID-19 2022-03-17 Completed Unive rsity of MIKE-SUCROSE VACCINE 00:00:00 [facility] 12 YRS+, BIVALENT Branch 0.3ML, IM, (PFIZER ARITA TOP BOOSTER) SARS-COV-2 COVID-19 2022-03-17 Completed Unive rsity of MIKE-SUCROSE VACCINE 00:00:00 [facility] 12 YRS+, BIVALENT Branch 0.3ML, IM, (PFIZER RAITA TOP BOOSTER) SARS-COV-2 COVID-19 2022-03-17 Completed Unive rsity of MIKE-SUCROSE VACCINE 00:00:00 [facility] 12 YRS+, BIVALENT Branch 0.3ML, IM, (PFIZER ARITA TOP BOOSTER) SARS-COV-2 COVID-19 2022-03-17 Completed Unive rsity of MIKE-SUCROSE VACCINE 00:00:00 [facility] 12 YRS+, BIVALENT Branch 0.3ML, IM, (PFIZER ARITA TOP BOOSTER) SARS-COV-2 COVID-19 2022-03-17 Completed Unive rsity of MIKE-SUCROSE VACCINE 00:00:00 [facility] 12 YRS+, BIVALENT Branch 0.3ML, IM, (PFIZER ARITA TOP BOOSTER) SARS-COV-2 COVID-19 2022-03-17 Completed Unive rsity of MIKE-SUCROSE VACCINE 00:00:00 [facility] 12 YRS+, BIVALENT Branch 0.3ML, IM, (PFIZER ARITA TOP BOOSTER) SARS-COV-2 COVID-19 2022-03-17 Completed Unive rsity of MIKE-SUCROSE VACCINE 00:00:00 [facility] 12 YRS+, BIVALENT Branch 0.3ML, IM, (PFIZER ARITA TOP BOOSTER) SARS-COV-2 COVID-19 2022-03-17 Completed Unive rsity of MIKE-SUCROSE VACCINE 00:00:00 [facility] 12 YRS+, BIVALENT Branch 0.3ML, IM, (PFIZER ARITA TOP BOOSTER) SARS-COV-2 COVID-19 2022-03-17 Completed Unive rsity of MIKE-SUCROSE VACCINE 00:00:00 [facility] 12 YRS+, BIVALENT Branch 0.3ML, IM, (PFIZER ARITA TOP BOOSTER) SARS-COV-2 COVID-19 2022-03-17 Completed Unive rsity of MIKE-SUCROSE VACCINE 00:00:00 [facility] 12 YRS+, BIVALENT Branch 0.3ML, IM, (PFIZER ARITA TOP BOOSTER) SARS-COV-2 COVID-19 2022-03-17 Completed Unive rsity of MIKE-SUCROSE VACCINE 00:00:00 [facility] 12 YRS+, BIVALENT Branch 0.3ML, IM, (PFIZER ARITA TOP BOOSTER) SARS-COV-2 COVID-19 2022-03-17 Completed Unive rsity of MIKE-SUCROSE VACCINE 00:00:00 [facility] 12 YRS+, BIVALENT Branch 0.3ML, IM, (PFIZER ARITA TOP BOOSTER) SARS-COV-2 COVID-19 2022-03-17 Completed Unive rsity of MIKE-SUCROSE VACCINE 00:00:00 [facility] 12 YRS+, BIVALENT Branch 0.3ML, IM, (PFIZER ARITA TOP BOOSTER) SARS-COV-2 COVID-19 2022-03-17 Completed Unive rsity of MIKE-SUCROSE VACCINE 00:00:00 [facility] 12 YRS+, BIVALENT Branch 0.3ML, IM, (PFIZER ARITA TOP BOOSTER) SARS-COV-2 COVID-19 2022-03-17 Completed Unive rsity of MIKE-SUCROSE VACCINE 00:00:00 [facility] 12 YRS+, BIVALENT Branch 0.3ML, IM, (PFIZER ARITA TOP BOOSTER) SARS-COV-2 COVID-19 2022-03-17 Completed Unive rsity of MIKE-SUCROSE VACCINE 00:00:00 [facility] 12 YRS+, BIVALENT Branch 0.3ML, IM, (PFIZER ARITA TOP BOOSTER) SARS-COV-2 COVID-19 2022-03-17 Completed Unive rsity of MIKE-SUCROSE VACCINE 00:00:00 [facility] 12 YRS+, BIVALENT Branch 0.3ML, IM, (PFIZER ARITA TOP BOOSTER) SARS-COV-2 COVID-19 2022-03-17 Completed Unive rsity of MIKE-SUCROSE VACCINE 00:00:00 [facility] 12 YRS+, BIVALENT Branch 0.3ML, IM, (PFIZER ARIAT TOP BOOSTER) SARS-COV-2 COVID-19 2022-03-17 Completed Unive rsity of MIKE-SUCROSE VACCINE 00:00:00 [facility] 12 YRS+, BIVALENT Branch 0.3ML, IM, (PFIZER ARITA TOP BOOSTER) SARS-COV-2 COVID-19 2022-03-17 Completed Unive rsity of MIKE-SUCROSE VACCINE 00:00:00 [facility] [place] 12 YRS+, BIVALENT Branch 0.3ML, IM, (PFIZER ARITA TOP BOOSTER) SARS-COV-2 COVID-19 2022-03-17 Completed Unive rsity of MIKE-SUCROSE VACCINE 00:00:00 [facility] 12 YRS+, BIVALENT Branch 0.3ML, IM, (PFIZER ARITA TOP BOOSTER) SARS-COV-2 COVID-19 2022-03-17 Completed Unive rsity of MIKE-SUCROSE VACCINE 00:00:00 [facility] 12 YRS+, BIVALENT Branch 0.3ML, IM, (PFIZER ARITA TOP BOOSTER) SARS-COV-2 COVID-19 2022-03-17 Completed Unive rsity of MIKE-SUCROSE VACCINE 00:00:00 [facility] 12 YRS+, BIVALENT Branch 0.3ML, IM, (PFIZER ARITA TOP BOOSTER) SARS-COV-2 COVID-19 2022-03-17 Completed Unive rsity of MIKE-SUCROSE VACCINE 00:00:00 [facility] 12 YRS+, BIVALENT Branch 0.3ML, IM, (PFIZER ARITA TOP BOOSTER) SARS-COV-2 COVID-19 2022-03-17 Completed Unive rsity of MIKE-SUCROSE VACCINE 00:00:00 [facility] 12 YRS+, BIVALENT Branch 0.3ML, IM, (PFIZER ARITA TOP BOOSTER) SARS-COV-2 COVID-19 2022-03-17 Completed Unive rsity of MIKE-SUCROSE VACCINE 00:00:00 [facility] [place] 12 YRS+, BIVALENT Branch 0.3ML, IM, (PFIZER ARITA TOP BOOSTER) SARS-COV-2 COVID-19 2022-03-17 Completed Unive rsity of MIKE-SUCROSE VACCINE 00:00:00 [facility] [place] 12 YRS+, BIVALENT Branch 0.3ML, IM, (PFIZER ARITA TOP BOOSTER) SARS-COV-2 COVID-19 2022-03-17 Completed Unive rsity of MIKE-SUCROSE VACCINE 00:00:00 [facility] 12 YRS+, BIVALENT Branch 0.3ML, IM, (PFIZER ARITA TOP BOOSTER) SARS-COV-2 COVID-19 2022-03-17 Completed Unive rsity of MIKE-SUCROSE VACCINE 00:00:00 [facility] 12 YRS+, BIVALENT Branch 0.3ML, IM, (PFIZER ARITA TOP BOOSTER) SARS-COV-2 COVID-19 2022-03-17 Completed Unive rsity of MIKE-SUCROSE VACCINE 00:00:00 [facility] 12 YRS+, BIVALENT Branch 0.3ML, IM, (PFIZER ARITA TOP BOOSTER) SARS-COV-2 COVID-19 2022-03-17 Completed Unive rsity of MIKE-SUCROSE VACCINE 00:00:00 [facility] 12 YRS+, BIVALENT Branch 0.3ML, IM, (PFIZER ARITA TOP BOOSTER) SARS-COV-2 COVID-19 2022-03-17 Completed Unive rsity of MIKE-SUCROSE VACCINE 00:00:00 [facility] 12 YRS+, BIVALENT Branch 0.3ML, IM, (PFIZER ARITA TOP BOOSTER) SARS-COV-2 COVID-19 2022-03-17 Completed Unive rsity of MIKE-SUCROSE VACCINE 00:00:00 [facility] 12 YRS+, BIVALENT Branch 0.3ML, IM, (PFIZER ARITA TOP BOOSTER) SARS-COV-2 COVID-19 2022-03-17 Completed Unive rsity of MIKE-SUCROSE VACCINE 00:00:00 [facility] [place] 12 YRS+, BIVALENT Branch 0.3ML, IM, (PFIZER ARITA TOP BOOSTER) SARS-COV-2 COVID-19 2022-03-17 Completed Unive rsity of MIKE-SUCROSE VACCINE 00:00:00 [facility] [place] 12 YRS+, BIVALENT Branch 0.3ML, IM, (PFIZER ARITA TOP BOOSTER) SARS-COV-2 COVID-19 2021-06-24 Completed Unive rsity of PFIZER VACCINE 00:00:00 [facility] SARS-COV-2 COVID-19 2021-06-24 Completed Unive rsity of PFIZER VACCINE 00:00:00 [facility] Branch SARS-COV-2 COVID-19 2021-06-24 Completed Unive rsity of PFIZER VACCINE 00:00:00 [facility] Branch SARS-COV-2 COVID-19 2021-06-24 Completed Unive rsity of PFIZER VACCINE 00:00:00 [facility] Branch SARS-COV-2 COVID-19 2021-06-24 Completed Unive rsity of PFIZER VACCINE 00:00:00 [facility] Branch SARS-COV-2 COVID-19 2021-06-24 Completed Unive rsity of PFIZER VACCINE 00:00:00 [facility] [place] [facility] SARS-COV-2 COVID-19 2021-06-24 Completed Unive rsity of PFIZER VACCINE 00:00:00 [facility] Branch SARS-COV-2 COVID-19 2021-06-24 Completed Unive rsity of PFIZER VACCINE 00:00:00 [facility] Branch SARS-COV-2 COVID-19 2021-06-24 Completed Unive rsity of PFIZER VACCINE 00:00:00 [facility] Branch SARS-COV-2 COVID-19 2021-06-24 Completed Unive rsity of PFIZER VACCINE 00:00:00 [facility] Branch SARS-COV-2 COVID-19 2021-06-24 Completed Unive rsity of PFIZER VACCINE 00:00:00 [facility] SARS-COV-2 COVID-19 2021-06-24 Completed Unive rsity of PFIZER VACCINE 00:00:00 [facility] SARS-COV-2 COVID-19 2021-06-24 Completed Unive rsity of PFIZER VACCINE 00:00:00 [facility] SARS-COV-2 COVID-19 2021-06-24 Completed Unive rsity of PFIZER VACCINE 00:00:00 [facility] [place] [facility] SARS-COV-2 COVID-19 2021-06-24 Completed Unive rsity of PFIZER VACCINE 00:00:00 [facility] Branch SARS-COV-2 COVID-19 2021-06-24 Completed Unive rsity of PFIZER VACCINE 00:00:00 [facility] Branch SARS-COV-2 COVID-19 2021-06-24 Completed Unive rsity of PFIZER VACCINE 00:00:00 [facility] SARS-COV-2 COVID-19 2021-06-24 Completed Unive rsity of PFIZER VACCINE 00:00:00 [facility] [place] [facility] SARS-COV-2 COVID-19 2021-06-24 Completed Unive rsity of PFIZER VACCINE 00:00:00 [facility] [place] [facility] SARS-COV-2 COVID-19 2021-06-24 Completed Unive rsity of PFIZER VACCINE 00:00:00 [facility] Branch SARS-COV-2 COVID-19 2021-06-24 Completed Unive rsity of PFIZER VACCINE 00:00:00 [facility] SARS-COV-2 COVID-19 2021-06-24 Completed Unive rsity of PFIZER VACCINE 00:00:00 [facility] SARS-COV-2 COVID-19 2021-06-24 Completed Unive rsity of PFIZER VACCINE 00:00:00 [facility] SARS-COV-2 COVID-19 2021-06-24 Completed Unive rsity of PFIZER VACCINE 00:00:00 [facility] SARS-COV-2 COVID-19 2021-06-24 Completed Unive rsity of PFIZER VACCINE 00:00:00 [facility] SARS-COV-2 COVID-19 2021-06-24 Completed Unive rsity of PFIZER VACCINE 00:00:00 [facility] SARS-COV-2 COVID-19 2021-06-24 Completed Unive rsity of PFIZER VACCINE 00:00:00 [facility] SARS-COV-2 COVID-19 2021-06-24 Completed Unive rsity of PFIZER VACCINE 00:00:00 [facility] SARS-COV-2 COVID-19 2021-06-24 Completed Unive rsity of PFIZER VACCINE 00:00:00 [facility] SARS-COV-2 COVID-19 2021-06-24 Completed Unive rsity of PFIZER VACCINE 00:00:00 [facility] SARS-COV-2 COVID-19 2021-06-24 Completed Unive rsity of PFIZER VACCINE 00:00:00 [facility] SARS-COV-2 COVID-19 2021-06-24 Completed Unive rsity of PFIZER VACCINE 00:00:00 [facility] SARS-COV-2 COVID-19 2021-06-24 Completed Unive rsity of PFIZER VACCINE 00:00:00 [facility] SARS-COV-2 COVID-19 2021-06-24 Completed Unive rsity of PFIZER VACCINE 00:00:00 [facility] SARS-COV-2 COVID-19 2021-06-24 Completed Unive rsity of PFIZER VACCINE 00:00:00 [facility] SARS-COV-2 COVID-19 2021-06-24 Completed Unive rsity of PFIZER VACCINE 00:00:00 [facility] SARS-COV-2 COVID-19 2021-06-24 Completed Unive rsity of PFIZER VACCINE 00:00:00 [facility] SARS-COV-2 COVID-19 2021-06-24 Completed Unive rsity of PFIZER VACCINE 00:00:00 [facility] SARS-COV-2 COVID-19 2021-06-24 Completed Unive rsity of PFIZER VACCINE 00:00:00 [facility] SARS-COV-2 COVID-19 2021-06-24 Completed Unive rsity of PFIZER VACCINE 00:00:00 [facility] SARS-COV-2 COVID-19 2021-06-24 Completed Unive rsity of PFIZER VACCINE 00:00:00 [facility] SARS-COV-2 COVID-19 2021-06-24 Completed Unive rsity of PFIZER VACCINE 00:00:00 [facility] SARS-COV-2 COVID-19 2021-06-24 Completed Unive rsity of PFIZER VACCINE 00:00:00 [facility] SARS-COV-2 COVID-19 2021-06-24 Completed Unive rsity of PFIZER VACCINE 00:00:00 [facility] SARS-COV-2 COVID-19 2021-06-24 Completed Unive rsity of PFIZER VACCINE 00:00:00 [facility] [place] [facility] SARS-COV-2 COVID-19 2021-06-24 Completed Unive rsity of PFIZER VACCINE 00:00:00 [facility] SARS-COV-2 COVID-19 2021-06-24 Completed Unive rsity of PFIZER VACCINE 00:00:00 [facility] SARS-COV-2 COVID-19 2021-06-24 Completed Unive rsity of PFIZER VACCINE 00:00:00 [facility] SARS-COV-2 COVID-19 2021-06-24 Completed Unive rsity of PFIZER VACCINE 00:00:00 [facility] [place] [facility] SARS-COV-2 COVID-19 2021-06-24 Completed Unive rsity of PFIZER VACCINE 00:00:00 [facility] [place] [facility] SARS-COV-2 COVID-19 2021-06-24 Completed Unive rsity of PFIZER VACCINE 00:00:00 [facility] SARS-COV-2 COVID-19 2021-06-24 Completed Unive rsity of PFIZER VACCINE 00:00:00 [facility] SARS-COV-2 COVID-19 2021-06-24 Completed Unive rsity of PFIZER VACCINE 00:00:00 [facility] SARS-COV-2 COVID-19 2021-06-24 Completed Unive rsity of PFIZER VACCINE 00:00:00 [facility] SARS-COV-2 COVID-19 2021-06-24 Completed Unive rsity of PFIZER VACCINE 00:00:00 [facility] SARS-COV-2 COVID-19 2021-06-24 Completed Unive rsity of PFIZER VACCINE 00:00:00 [facility] SARS-COV-2 COVID-19 2021-06-24 Completed Unive rsity of PFIZER VACCINE 00:00:00 [facility] SARS-COV-2 COVID-19 2020-11-21 Completed Unive rsity of PFIZER VACCINE 00:00:00 [facility] SARS-COV-2 COVID-19 2020-11-21 Completed Unive rsity of PFIZER VACCINE 00:00:00 [facility] SARS-COV-2 COVID-19 2020-11-21 Completed Unive rsity of PFIZER VACCINE 00:00:00 [facility] SARS-COV-2 COVID-19 2020-11-21 Completed Unive rsity of PFIZER VACCINE 00:00:00 [facility] SARS-COV-2 COVID-19 2020-11-21 Completed Unive rsity of PFIZER VACCINE 00:00:00 [facility] SARS-COV-2 COVID-19 2020-11-21 Completed Unive rsity of PFIZER VACCINE 00:00:00 [facility] SARS-COV-2 COVID-19 2020-11-21 Completed Unive rsity of PFIZER VACCINE 00:00:00 [facility] SARS-COV-2 COVID-19 2020-11-21 Completed Unive rsity of PFIZER VACCINE 00:00:00 [facility] [place] [facility] SARS-COV-2 COVID-19 2020-11-21 Completed Unive rsity of PFIZER VACCINE 00:00:00 [facility] SARS-COV-2 COVID-19 2020-11-21 Completed Unive rsity of PFIZER VACCINE 00:00:00 [facility] SARS-COV-2 COVID-19 2020-11-21 Completed Unive rsity of PFIZER VACCINE 00:00:00 [facility] SARS-COV-2 COVID-19 2020-11-21 Completed Unive rsity of PFIZER VACCINE 00:00:00 [facility] SARS-COV-2 COVID-19 2020-11-21 Completed Unive rsity of PFIZER VACCINE 00:00:00 [facility] SARS-COV-2 COVID-19 2020-11-21 Completed [facility] PFIZER VACCINE 00:00:00 [facility] SARS-COV-2 COVID-19 2020-11-21 Completed [facility] PFIZER VACCINE 00:00:00 [facility] SARS-COV-2 COVID-19 2020-11-21 Completed [facility] PFIZER VACCINE 00:00:00 [facility] SARS-COV-2 COVID-19 2020-11-21 Completed [facility] PFIZER VACCINE 00:00:00 [facility] SARS-COV-2 COVID-19 2020-11-21 Completed [facility] PFIZER VACCINE 00:00:00 [facility] SARS-COV-2 COVID-19 2020-11-21 Completed [facility] PFIZER VACCINE 00:00:00 [facility] SARS-COV-2 COVID-19 2020-11-21 Completed [facility] PFIZER VACCINE 00:00:00 [facility] SARS-COV-2 COVID-19 2020-11-21 Completed [facility] PFIZER VACCINE 00:00:00 [facility] SARS-COV-2 COVID-19 2020-11-21 Completed [facility] PFIZER VACCINE 00:00:00 [facility] SARS-COV-2 COVID-19 2020-11-21 Completed [facility] PFIZER VACCINE 00:00:00 [facility] SARS-COV-2 COVID-19 2020-11-21 Completed [facility] PFIZER VACCINE 00:00:00 [facility] SARS-COV-2 COVID-19 2020-11-21 Completed [facility] PFIZER VACCINE 00:00:00 [facility] SARS-COV-2 COVID-19 2020-11-21 Completed [facility] PFIZER VACCINE 00:00:00 [facility] SARS-COV-2 COVID-19 2020-11-21 Completed [facility] PFIZER VACCINE 00:00:00 [facility] SARS-COV-2 COVID-19 2020-11-21 Completed [facility] PFIZER VACCINE 00:00:00 [facility] SARS-COV-2 COVID-19 2020-11-21 Completed [facility] PFIZER VACCINE 00:00:00 [facility] SARS-COV-2 COVID-19 2020-11-21 Completed [facility] PFIZER VACCINE 00:00:00 [facility] SARS-COV-2 COVID-19 2020-11-21 Completed [facility] PFIZER VACCINE 00:00:00 [facility] SARS-COV-2 COVID-19 2020-11-21 Completed [facility] PFIZER VACCINE 00:00:00 [facility] SARS-COV-2 COVID-19 2020-11-21 Completed [facility] PFIZER VACCINE 00:00:00 [facility] SARS-COV-2 COVID-19 2020-11-21 Completed [facility] PFIZER VACCINE 00:00:00 [facility] SARS-COV-2 COVID-19 2020-11-21 Completed [facility] PFIZER VACCINE 00:00:00 [facility] SARS-COV-2 COVID-19 2020-11-21 Completed [facility] PFIZER VACCINE 00:00:00 [facility] SARS-COV-2 COVID-19 2020-11-21 Completed [facility] PFIZER VACCINE 00:00:00 [facility] SARS-COV-2 COVID-19 2020-11-21 Completed [facility] PFIZER VACCINE 00:00:00 [facility] SARS-COV-2 COVID-19 2020-11-21 Completed [facility] PFIZER VACCINE 00:00:00 [facility] SARS-COV-2 COVID-19 2020-11-21 Completed [facility] PFIZER VACCINE 00:00:00 [facility] SARS-COV-2 COVID-19 2020-11-21 Completed [facility] PFIZER VACCINE 00:00:00 [facility] SARS-COV-2 COVID-19 2020-11-21 Completed [facility] PFIZER VACCINE 00:00:00 [facility] SARS-COV-2 COVID-19 2020-11-21 Completed [facility] PFIZER VACCINE 00:00:00 [facility] SARS-COV-2 COVID-19 2020-11-21 Completed [facility] PFIZER VACCINE 00:00:00 [facility] SARS-COV-2 COVID-19 2020-11-21 Completed [facility] PFIZER VACCINE 00:00:00 [facility] SARS-COV-2 COVID-19 2020-11-21 Completed [facility] PFIZER VACCINE 00:00:00 [facility] SARS-COV-2 COVID-19 2020-11-21 Completed [facility] PFIZER VACCINE 00:00:00 [facility] SARS-COV-2 COVID-19 2020-11-21 Completed [facility] PFIZER VACCINE 00:00:00 [facility] SARS-COV-2 COVID-19 2020-11-21 Completed [facility] PFIZER VACCINE 00:00:00 [facility] SARS-COV-2 COVID-19 2020-11-21 Completed [facility] PFIZER VACCINE 00:00:00 [facility] SARS-COV-2 COVID-19 2020-11-21 Completed [facility] PFIZER VACCINE 00:00:00 [facility] SARS-COV-2 COVID-19 2020-11-21 Completed [facility] PFIZER VACCINE 00:00:00 [facility] SARS-COV-2 COVID-19 2020-11-21 Completed [facility] PFIZER VACCINE 00:00:00 [facility] SARS-COV-2 COVID-19 2020-11-21 Completed [facility] PFIZER VACCINE 00:00:00 [facility] SARS-COV-2 COVID-19 2020-11-21 Completed [facility] PFIZER VACCINE 00:00:00 [facility] SARS-COV-2 COVID-19 2020-11-21 Completed [facility] PFIZER VACCINE 00:00:00 [facility] SARS-COV-2 COVID-19 2020-11-21 Completed [facility] PFIZER VACCINE 00:00:00 [facility] SARS-COV-2 COVID-19 2020-10-24 Completed [facility] PFIZER VACCINE 00:00:00 [facility] SARS-COV-2 COVID-19 2020-10-24 Completed [facility] PFIZER VACCINE 00:00:00 [facility] SARS-COV-2 COVID-19 2020-10-24 Completed [facility] PFIZER VACCINE 00:00:00 [facility] SARS-COV-2 COVID-19 2020-10-24 Completed [facility] PFIZER VACCINE 00:00:00 [facility] SARS-COV-2 COVID-19 2020-10-24 Completed [facility] PFIZER VACCINE 00:00:00 [facility] SARS-COV-2 COVID-19 2020-10-24 Completed [facility] PFIZER VACCINE 00:00:00 [facility] SARS-COV-2 COVID-19 2020-10-24 Completed [facility] PFIZER VACCINE 00:00:00 [facility] SARS-COV-2 COVID-19 2020-10-24 Completed [facility] PFIZER VACCINE 00:00:00 [facility] SARS-COV-2 COVID-19 2020-10-24 Completed [facility] PFIZER VACCINE 00:00:00 [facility] SARS-COV-2 COVID-19 2020-10-24 Completed [facility] PFIZER VACCINE 00:00:00 [facility] SARS-COV-2 COVID-19 2020-10-24 Completed [facility] PFIZER VACCINE 00:00:00 [facility] SARS-COV-2 COVID-19 2020-10-24 Completed [facility] PFIZER VACCINE 00:00:00 [facility] SARS-COV-2 COVID-19 2020-10-24 Completed [facility] PFIZER VACCINE 00:00:00 [facility] SARS-COV-2 COVID-19 2020-10-24 Completed [facility] PFIZER VACCINE 00:00:00 [facility] SARS-COV-2 COVID-19 2020-10-24 Completed [facility] PFIZER VACCINE 00:00:00 [facility] SARS-COV-2 COVID-19 2020-10-24 Completed [facility] PFIZER VACCINE 00:00:00 [facility] SARS-COV-2 COVID-19 2020-10-24 Completed [facility] PFIZER VACCINE 00:00:00 [facility] SARS-COV-2 COVID-19 2020-10-24 Completed [facility] PFIZER VACCINE 00:00:00 [facility] SARS-COV-2 COVID-19 2020-10-24 Completed [facility] PFIZER VACCINE 00:00:00 [facility] SARS-COV-2 COVID-19 2020-10-24 Completed [facility] PFIZER VACCINE 00:00:00 [facility] SARS-COV-2 COVID-19 2020-10-24 Completed [facility] PFIZER VACCINE 00:00:00 [facility] SARS-COV-2 COVID-19 2020-10-24 Completed [facility] PFIZER VACCINE 00:00:00 [facility] SARS-COV-2 COVID-19 2020-10-24 Completed [facility] PFIZER VACCINE 00:00:00 [facility] SARS-COV-2 COVID-19 2020-10-24 Completed [facility] PFIZER VACCINE 00:00:00 [facility] SARS-COV-2 COVID-19 2020-10-24 Completed [facility] PFIZER VACCINE 00:00:00 [facility] SARS-COV-2 COVID-19 2020-10-24 Completed [facility] PFIZER VACCINE 00:00:00 [facility] SARS-COV-2 COVID-19 2020-10-24 Completed [facility] PFIZER VACCINE 00:00:00 [facility] SARS-COV-2 COVID-19 2020-10-24 Completed [facility] PFIZER VACCINE 00:00:00 [facility] SARS-COV-2 COVID-19 2020-10-24 Completed [facility] PFIZER VACCINE 00:00:00 [facility] SARS-COV-2 COVID-19 2020-10-24 Completed [facility] PFIZER VACCINE 00:00:00 [facility] SARS-COV-2 COVID-19 2020-10-24 Completed [facility] PFIZER VACCINE 00:00:00 [facility] SARS-COV-2 COVID-19 2020-10-24 Completed [facility] PFIZER VACCINE 00:00:00 [facility] SARS-COV-2 COVID-19 2020-10-24 Completed [facility] PFIZER VACCINE 00:00:00 [facility] SARS-COV-2 COVID-19 2020-10-24 Completed [facility] PFIZER VACCINE 00:00:00 [facility] SARS-COV-2 COVID-19 2020-10-24 Completed [facility] PFIZER VACCINE 00:00:00 [facility] SARS-COV-2 COVID-19 2020-10-24 Completed [facility] PFIZER VACCINE 00:00:00 [facility] SARS-COV-2 COVID-19 2020-10-24 Completed [facility] PFIZER VACCINE 00:00:00 [facility] SARS-COV-2 COVID-19 2020-10-24 Completed [facility] PFIZER VACCINE 00:00:00 [facility] SARS-COV-2 COVID-19 2020-10-24 Completed [facility] PFIZER VACCINE 00:00:00 [facility] SARS-COV-2 COVID-19 2020-10-24 Completed [facility] PFIZER VACCINE 00:00:00 [facility] SARS-COV-2 COVID-19 2020-10-24 Completed [facility] PFIZER VACCINE 00:00:00 [facility] SARS-COV-2 COVID-19 2020-10-24 Completed [facility] PFIZER VACCINE 00:00:00 [facility] SARS-COV-2 COVID-19 2020-10-24 Completed [facility] PFIZER VACCINE 00:00:00 [facility] SARS-COV-2 COVID-19 2020-10-24 Completed [facility] PFIZER VACCINE 00:00:00 [facility] SARS-COV-2 COVID-19 2020-10-24 Completed [facility] PFIZER VACCINE 00:00:00 [facility] SARS-COV-2 COVID-19 2020-10-24 Completed [facility] PFIZER VACCINE 00:00:00 [facility] SARS-COV-2 COVID-19 2020-10-24 Completed [facility] PFIZER VACCINE 00:00:00 [facility] SARS-COV-2 COVID-19 2020-10-24 Completed [facility] PFIZER VACCINE 00:00:00 [facility] SARS-COV-2 COVID-19 2020-10-24 Completed [facility] PFIZER VACCINE 00:00:00 [facility] SARS-COV-2 COVID-19 2020-10-24 Completed [facility] PFIZER VACCINE 00:00:00 [facility] SARS-COV-2 COVID-19 2020-10-24 Completed [facility] PFIZER VACCINE 00:00:00 [facility] SARS-COV-2 COVID-19 2020-10-24 Completed [facility] PFIZER VACCINE 00:00:00 [facility] SARS-COV-2 COVID-19 2020-10-24 Completed [facility] PFIZER VACCINE 00:00:00 [facility] SARS-COV-2 COVID-19 2020-10-24 Completed [facility] PFIZER VACCINE 00:00:00 [facility] SARS-COV-2 COVID-19 2020-10-24 Completed [facility] PFIZER VACCINE 00:00:00 [facility] SARS-COV-2 COVID-19 2020-10-24 Completed [facility] PFIZER VACCINE 00:00:00 [facility] SARS-COV-2 COVID-19 2020-10-24 Completed [facility] PFIZER VACCINE 00:00:00 [facility] Influenza Virus 2020-07-08 Completed [facility] [...] OMV 2018-10-31 Completed [facility] 00:00:00 [facility] Influenza Virus 2018-08-29 Completed [facility] Vaccine Quad .5 mL IM 00:00:00 [facility] Meningococcal B, OMV 2018-08-29 Completed [facility] of 00:00:00 [facility] Influenza Virus 2018-08-29 Completed [facility] Vaccine Quad .5 mL IM 00:00:00 [facility] Meningococcal B, OMV 2018-08-29 Completed [facility] of 00:00:00 [facility] Influenza Virus 2018-08-29 Completed [facility] Vaccine Quad .5 mL IM 00:00:00 [facility] Meningococcal B, OMV 2018-08-29 Completed [facility] 00:00:00 [facility] Influenza Virus 2018-08-29 Completed [facility] Vaccine Quad .5 mL IM 00:00:00 [facility] Meningococcal B, OMV 2018-08-29 Completed [facility] 00:00:00 [facility] Influenza Virus 2018-08-29 Completed [facility] Vaccine Quad .5 mL IM 00:00:00 [facility] Meningococcal B, OMV 2018-08-29 Completed [facility] of 00:00:00 [facility] Influenza Virus 2018-08-29 Completed [facility] Vaccine Quad .5 mL IM 00:00:00 [facility] Meningococcal B, OMV 2018-08-29 Completed [facility] of 00:00:00 [facility] Influenza Virus 2018-08-29 Completed [facility] Vaccine Quad .5 mL IM 00:00:00 [facility] Meningococcal B, OMV 2018-08-29 Completed [facility] 00:00:00 [facility] Influenza Virus 2018-08-29 Completed [facility] Vaccine Quad .5 mL IM 00:00:00 [facility] Meningococcal B, OMV 2018-08-29 Completed [facility] of 00:00:00 [facility] Influenza Virus 2018-08-29 Completed [facility] Vaccine Quad .5 mL IM 00:00:00 [facility] Meningococcal B, OMV 2018-08-29 Completed [facility] 00:00:00 [facility] Influenza Virus 2018-08-29 Completed [facility] Vaccine Quad .5 mL IM 00:00:00 [facility] Meningococcal B, OMV 2018-08-29 Completed [facility] 00:00:00 [facility] Influenza Virus 2018-08-29 Completed [facility] Vaccine Quad .5 mL IM 00:00:00 [facility] Meningococcal B, OMV 2018-08-29 Completed [facility] 00:00:00 [facility] Influenza Virus 2018-08-29 Completed [facility] Vaccine Quad .5 mL IM 00:00:00 [facility] Meningococcal B, OMV 2018-08-29 Completed [facility] 00:00:00 [facility] Influenza Virus 2018-08-29 Completed [facility] Vaccine Quad .5 mL IM 00:00:00 [facility] Meningococcal B, OMV 2018-08-29 Completed [facility] 00:00:00 [facility] Influenza Virus 2018-08-29 Completed [facility] Vaccine Quad .5 mL IM 00:00:00 [facility] Meningococcal B, OMV 2018-08-29 Completed [facility] 00:00:00 [facility] Influenza Virus 2018-08-29 Completed [facility] Vaccine Quad .5 mL IM 00:00:00 [facility] Meningococcal B, OMV 2018-08-29 Completed [facility] 00:00:00 [facility] Influenza Virus 2018-08-29 Completed [facility] Vaccine Quad .5 mL IM 00:00:00 [facility] Meningococcal B, OMV 2018-08-29 Completed [facility] 00:00:00 [facility] Influenza Virus 2018-08-29 Completed [facility] Vaccine Quad .5 mL IM 00:00:00 [facility] Meningococcal B, OMV 2018-08-29 Completed [facility] 00:00:00 [facility] Influenza Virus 2018-08-29 Completed [facility] Vaccine Quad .5 mL IM 00:00:00 [facility] Meningococcal B, OMV 2018-08-29 Completed [facility] 00:00:00 [facility] Influenza Virus 2018-08-29 Completed [facility] Vaccine Quad .5 mL IM 00:00:00 [facility] Meningococcal B, OMV 2018-08-29 Completed [facility] 00:00:00 [facility] Influenza Virus 2018-08-29 Completed [facility] Vaccine Quad .5 mL IM 00:00:00 [facility] Meningococcal B, OMV 2018-08-29 Completed [facility] 00:00:00 [facility] Influenza Virus 2018-08-29 Completed [facility] Vaccine Quad .5 mL IM 00:00:00 [facility] Meningococcal B, OMV 2018-08-29 Completed [facility] 00:00:00 [facility] Influenza Virus 2018-08-29 Completed [facility] Vaccine Quad .5 mL IM 00:00:00 [facility] Meningococcal B, OMV 2018-08-29 Completed [facility] 00:00:00 [facility] Influenza Virus 2018-08-29 Completed [facility] Vaccine Quad .5 mL IM 00:00:00 [facility] Meningococcal B, OMV 2018-08-29 Completed [facility] 00:00:00 [facility] Influenza Virus 2018-08-29 Completed [facility] Vaccine Quad .5 mL IM 00:00:00 [facility] Meningococcal B, OMV 2018-08-29 Completed [facility] 00:00:00 [facility] Influenza Virus 2018-08-29 Completed [facility] Vaccine Quad .5 mL IM 00:00:00 [facility] Meningococcal B, OMV 2018-08-29 Completed [facility] 00:00:00 [facility] Influenza Virus 2018-08-29 Completed [facility] Vaccine Quad .5 mL IM 00:00:00 [facility] Meningococcal B, OMV 2018-08-29 Completed [facility] 00:00:00 [facility] Influenza Virus 2018-08-29 Completed [facility] Vaccine Quad .5 mL IM 00:00:00 [facility] Meningococcal B, OMV 2018-08-29 Completed [facility] 00:00:00 [facility] Influenza Virus 2018-08-29 Completed [facility] Vaccine Quad .5 mL IM 00:00:00 [facility] Meningococcal B, OMV 2018-08-29 Completed [facility] 00:00:00 [facility] Influenza Virus 2018-08-29 Completed [facility] Vaccine Quad .5 mL IM 00:00:00 [facility] Meningococcal B, OMV 2018-08-29 Completed [facility] 00:00:00 [facility] Influenza Virus 2018-08-29 Completed [facility] Vaccine Quad .5 mL IM 00:00:00 [facility] Meningococcal B, OMV 2018-08-29 Completed [facility] 00:00:00 [facility] Influenza Virus 2018-08-29 Completed [facility] Vaccine Quad .5 mL IM 00:00:00 [facility] Meningococcal B, OMV 2018-08-29 Completed [facility] 00:00:00 [facility] Influenza Virus 2018-08-29 Completed [facility] Vaccine Quad .5 mL IM 00:00:00 [facility] Meningococcal B, OMV 2018-08-29 Completed [facility] 00:00:00 [facility] Influenza Virus 2018-08-29 Completed [facility] Vaccine Quad .5 mL IM 00:00:00 [facility] Meningococcal B, OMV 2018-08-29 Completed [facility] 00:00:00 [facility] Influenza Virus 2018-08-29 Completed [facility] Vaccine Quad .5 mL IM 00:00:00 [facility] Meningococcal B, OMV 2018-08-29 Completed [facility] 00:00:00 [facility] Influenza Virus 2018-08-29 Completed [facility] Vaccine Quad .5 mL IM 00:00:00 [facility] Meningococcal B, OMV 2018-08-29 Completed [facility] 00:00:00 [facility] Influenza Virus 2018-08-29 Completed [facility] Vaccine Quad .5 mL IM 00:00:00 [facility] Meningococcal B, OMV 2018-08-29 Completed [facility] 00:00:00 [facility] Influenza Virus 2018-08-29 Completed [facility] Vaccine Quad .5 mL IM 00:00:00 [facility] Meningococcal B, OMV 2018-08-29 Completed [facility] 00:00:00 [facility] Influenza Virus 2018-08-29 Completed [facility] Vaccine Quad .5 mL IM 00:00:00 [facility] Meningococcal B, OMV 2018-08-29 Completed [facility] 00:00:00 [facility] Influenza Virus 2018-08-29 Completed [facility] Vaccine Quad .5 mL IM 00:00:00 [facility] Meningococcal B, OMV 2018-08-29 Completed [facility] 00:00:00 [facility] Influenza Virus 2018-08-29 Completed [facility] Vaccine Quad .5 mL IM 00:00:00 [facility] Meningococcal B, OMV 2018-08-29 Completed [facility] 00:00:00 [facility] Influenza Virus 2018-08-29 Completed [facility] Vaccine Quad .5 mL IM 00:00:00 [facility] Meningococcal B, OMV 2018-08-29 Completed [facility] 00:00:00 [facility] Influenza Virus 2018-08-29 Completed [facility] Vaccine Quad .5 mL IM 00:00:00 [facility] Meningococcal B, OMV 2018-08-29 Completed [facility] 00:00:00 [facility] Influenza Virus 2018-08-29 Completed [facility] Vaccine Quad .5 mL IM 00:00:00 [facility] Meningococcal B, OMV 2018-08-29 Completed [facility] 00:00:00 [facility] Influenza Virus 2018-08-29 Completed [facility] Vaccine Quad .5 mL IM 00:00:00 [facility] Meningococcal B, OMV 2018-08-29 Completed [facility] 00:00:00 [facility] Influenza Virus 2018-08-29 Completed [facility] Vaccine Quad .5 mL IM 00:00:00 [facility] Meningococcal B, OMV 2018-08-29 Completed [facility] 00:00:00 [facility] Influenza Virus 2018-08-29 Completed [facility] Vaccine Quad .5 mL IM 00:00:00 [facility] Meningococcal B, OMV 2018-08-29 Completed [facility] 00:00:00 [facility] Influenza Virus 2018-08-29 Completed [facility] Vaccine Quad .5 mL IM 00:00:00 [facility] Meningococcal B, OMV 2018-08-29 Completed [facility] 00:00:00 [facility] Influenza Virus 2018-08-29 Completed [facility] Vaccine Quad .5 mL IM 00:00:00 [facility] Meningococcal B, OMV 2018-08-29 Completed [facility] 00:00:00 [facility] Influenza Virus 2018-08-29 Completed [facility] Vaccine Quad .5 mL IM 00:00:00 [facility] Meningococcal B, OMV 2018-08-29 Completed [facility] 00:00:00 [facility] Influenza Virus 2018-08-29 Completed [facility] Vaccine Quad .5 mL IM 00:00:00 [facility] Meningococcal B, OMV 2018-08-29 Completed [facility] 00:00:00 [facility] Influenza Virus 2018-08-29 Completed [facility] Vaccine Quad .5 mL IM 00:00:00 [facility] Meningococcal B, OMV 2018-08-29 Completed [facility] 00:00:00 [facility] Influenza Virus 2018-08-29 Completed [facility] Vaccine Quad .5 mL IM 00:00:00 [facility] Meningococcal B, OMV 2018-08-29 Completed [facility] 00:00:00 [facility] Influenza Virus 2018-08-29 Completed [facility] Vaccine Quad .5 mL IM 00:00:00 [facility] Meningococcal B, OMV 2018-08-29 Completed [facility] 00:00:00 [facility] Influenza Virus 2018-08-29 Completed [facility] Vaccine Quad .5 mL IM 00:00:00 [facility] Meningococcal B, OMV 2018-08-29 Completed [facility] 00:00:00 [facility] Influenza Virus 2018-08-29 Completed [facility] Vaccine Quad .5 mL IM 00:00:00 [facility] Meningococcal B, OMV 2018-08-29 Completed [facility] 00:00:00 [facility] Influenza Virus 2018-08-29 Completed [facility] Vaccine Quad .5 mL IM 00:00:00 [facility] Meningococcal B, OMV 2018-08-29 Completed [facility] 00:00:00 [facility] Influenza Virus 2018-08-29 Completed [facility] Vaccine Quad .5 mL IM 00:00:00 [facility] 6+ [facility] Meningococcal B, OMV 2018-08-29 Completed [facility] 00:00:00 [facility] Meningococcal 2018-01-17 Completed [facility] Polysaccharide 00:00:00 [place] [facility] (groups A, C, Y and Branc h W-135) conjugate vaccine (MCV4P) Meningococcal 2018-01-17 Completed [facility] Polysaccharide 00:00:00 [place] [facility] (groups A, C, Y and Branc h W-135) conjugate vaccine (MCV4P) Meningococcal 2018-01-17 Completed [facility] Polysaccharide 00:00:00 [place] [facility] (groups A, C, Y and Branc h W-135) conjugate vaccine (MCV4P) Meningococcal 2018-01-17 Completed [facility] of Polysaccharide 00:00:00 [place] [facility] (groups A, C, Y and [...] 2018-01-17 Completed [facility] Polysaccharide 00:00:00 [place] [facility] (groups A, C, Y and Branc h W-135) conjugate vaccine (MCV4P) Meningococcal 2018-01-17 Completed [facility] Polysaccharide 00:00:00 [place] [facility] (groups A, C, Y and [...] y of Vaccine Quad IM 3+ 00:00:00 [facility] Influenza Virus 2017-04-12 Completed [facility]it [facility] of Vaccine Quad IM 3+ 00:00:00 [facility] Influenza Virus 2017-04-12 Completed [facility] of Vaccine Quad IM 3+ 00:00:00 [facility] Influenza Virus 2017-04-12 Completed [facility] Vaccine Quad IM 3+ 00:00:00 [facility] Influenza Virus 2017-04-12 Completed [facility] of Vaccine Quad IM 3+ 00:00:00 [facility] Influenza Virus 2017-04-12 Completed [facility] of Vaccine Quad IM 3+ 00:00:00 [facility] Influenza Virus 2017-04-12 Completed [facility] of Vaccine Quad IM 3+ 00:00:00 [facility] Influenza Virus 2017-04-12 Completed [facility] of Vaccine Quad IM 3+ 00:00:00 [facility] Influenza Virus 2017-04-12 Completed [facility] of Vaccine Quad IM 3+ 00:00:00 [facility] Influenza Virus 2017-04-12 Completed [facility] Vaccine Quad IM 3+ 00:00:00 [facility] Influenza Virus 2017-04-12 Completed [facility] of Vaccine Quad IM 3+ 00:00:00 [facility] Influenza Virus 2017-04-12 Completed [facility] Vaccine Quad IM 3+ 00:00:00 [facility] Influenza Virus 2017-04-12 Completed [facility] of Vaccine Quad IM 3+ 00:00:00 [facility] Influenza Virus 2017-04-12 Completed [facility] of Vaccine Quad IM 3+ 00:00:00 [facility] Influenza Virus 2017-04-12 Completed [facility] of Vaccine Quad IM 3+ 00:00:00 [facility] Influenza Virus 2017-04-12 Completed [facility] of Vaccine Quad IM 3+ 00:00:00 [facility] Influenza Virus 2017-04-12 Completed [facility] Vaccine Quad IM 3+ 00:00:00 [facility] Influenza Virus 2017-04-12 Completed [facility] Vaccine Quad IM 3+ 00:00:00 [facility] Influenza Virus 2017-04-12 Completed [facility] Vaccine Quad IM 3+ 00:00:00 [facility] Influenza Virus 2017-04-12 Completed [facility] of Vaccine Quad IM 3+ 00:00:00 [facility] Influenza Virus 2017-04-12 Completed [facility] of Vaccine Quad IM 3+ 00:00:00 [facility] Influenza Virus 2017-04-12 Completed [facility] Vaccine Quad IM 3+ 00:00:00 [facility] Influenza Virus 2017-04-12 Completed [facility] Vaccine Quad IM 3+ 00:00:00 [facility] Influenza Virus 2017-04-12 Completed [facility] Vaccine Quad IM 3+ 00:00:00 [facility] Influenza Virus 2017-04-12 Completed [facility] of Vaccine Quad IM 3+ 00:00:00 [facility] Influenza Virus 2017-04-12 Completed [facility] of Vaccine Quad IM 3+ 00:00:00 [facility] Influenza Virus 2017-04-12 Completed [facility] of Vaccine Quad IM 3+ 00:00:00 [facility] Influenza Virus 2017-04-12 Completed [facility] of Vaccine Quad IM 3+ 00:00:00 [facility] Influenza Virus 2017-04-12 Completed [facility] of Vaccine Quad IM 3+ 00:00:00 [facility] Influenza Virus 2017-04-12 Completed [facility] Vaccine Quad IM 3+ 00:00:00 [facility] Influenza Virus 2017-04-12 Completed [facility] of Vaccine Quad IM 3+ 00:00:00 [facility] Influenza Virus 2017-04-12 Completed [facility] of Vaccine Quad IM 3+ 00:00:00 [facility] Influenza Virus 2017-04-12 Completed [facility] of Vaccine Quad IM 3+ 00:00:00 [facility] Influenza Virus 2017-04-12 Completed [facility] Vaccine Quad IM 3+ 00:00:00 [facility] Influenza Virus 2017-04-12 Completed [facility] Vaccine Quad IM 3+ 00:00:00 [facility] Influenza Virus 2017-04-12 Completed [facility] Vaccine Quad IM 3+ 00:00:00 [facility] Influenza Virus 2017-04-12 Completed [facility] of Vaccine Quad IM 3+ 00:00:00 [facility] Influenza Virus 2017-04-12 Completed [facility] Vaccine Quad IM 3+ 00:00:00 [facility] Influenza Virus 2017-04-12 Completed [facility] of Vaccine Quad IM 3+ 00:00:00 [facility] Influenza Virus 2017-04-12 Completed [facility] of Vaccine Quad IM 3+ 00:00:00 [facility] Influenza Virus 2017-04-12 Completed [facility] of Vaccine Quad IM 3+ 00:00:00 [facility] Influenza Virus 2017-04-12 Completed [facility] of Vaccine Quad IM 3+ 00:00:00 [facility] Influenza Virus 2017-04-12 Completed [facility] of Vaccine Quad IM 3+ 00:00:00 [facility] Influenza Virus 2017-04-12 Completed [facility] of Vaccine Quad IM 3+ 00:00:00 [facility] Influenza Virus 2017-04-12 Completed [facility] of Vaccine Quad IM 3+ 00:00:00 [facility] Influenza Virus 2017-04-12 Completed [facility] Vaccine Quad IM 3+ 00:00:00 [facility] Influenza Virus 2017-04-12 Completed [facility] of Vaccine Quad IM 3+ 00:00:00 [facility] Influenza Virus 2017-04-12 Completed [facility] of Vaccine Quad IM 3+ 00:00:00 [facility] Influenza Virus 2017-04-12 Completed [facility] of Vaccine Quad IM 3+ 00:00:00 [facility] Influenza Virus 2017-04-12 Completed [facility] of Vaccine Quad IM 3+ 00:00:00 [facility] Influenza Virus 2017-04-12 Completed [facility] of Vaccine Quad IM 3+ 00:00:00 [facility] Influenza Virus 2017-04-12 Completed [facility] Vaccine Quad IM 3+ 00:00:00 [facility] Influenza Virus 2017-04-12 Completed [facility] of Vaccine Quad IM 3+ 00:00:00 [facility] Influenza Virus 2017-04-12 Completed [facility] Vaccine Quad IM 3+ 00:00:00 [facility] Influenza Virus 2017-04-12 Completed [facility] of Vaccine Quad IM 3+ 00:00:00 [facility] Influenza Virus 2017-04-12 Completed [facility] Vaccine Quad IM 3+ 00:00:00 [facility] Influenza Virus 2017-04-12 Completed [facility] Vaccine Quad IM 3+ 00:00:00 [facility] HPV9 2017-02-01 Completed [facility] 00:00:00 [facility] HPV9 2017-02-01 Completed [facility] of 00:00:00 [facility] HPV9 2017-02-01 Completed [facility] of 00:00:00 [facility] HPV9 2017-02-01 Completed [facility] of 00:00:00 [facility] HPV9 2017-02-01 Completed [facility] 00:00:00 [facility] HPV9 2017-02-01 Completed [facility] of 00:00:00 [facility] HPV9 2017-02-01 Completed [facility] of 00:00:00 [facility] HPV9 2017-02-01 Completed [facility] of 00:00:00 [facility] HPV9 2017-02-01 Completed [facility] of 00:00:00 [facility] HPV9 2017-02-01 Completed [facility] of 00:00:00 [facility] HPV9 2017-02-01 Completed [facility] 00:00:00 [facility] HPV9 2017-02-01 Completed [facility] 00:00:00 [facility] HPV9 2017-02-01 Completed [facility] 00:00:00 [facility] HPV9 2017-02-01 Completed [facility] 00:00:00 [facility] HPV9 2017-02-01 Completed [facility] 00:00:00 [facility] HPV9 2017-02-01 Completed [facility] of 00:00:00 [facility] HPV9 2017-02-01 Completed [facility] 00:00:00 [facility] HPV9 2017-02-01 Completed [facility] 00:00:00 [facility] HPV9 2017-02-01 Completed [facility] 00:00:00 [facility] HPV9 2017-02-01 Completed [facility] 00:00:00 [facility] HPV9 2017-02-01 Completed [facility] 00:00:00 [facility] HPV9 2017-02-01 Completed [facility] 00:00:00 [facility] HPV9 2017-02-01 Completed [facility] 00:00:00 [facility] HPV9 2017-02-01 Completed [facility] 00:00:00 [facility] HPV9 2017-02-01 Completed [facility] 00:00:00 [facility] HPV9 2017-02-01 Completed [facility] 00:00:00 [facility] HPV9 2017-02-01 Completed [facility] 00:00:00 [facility] HPV9 2017-02-01 Completed [facility] 00:00:00 [facility] HPV9 2017-02-01 Completed [facility] 00:00:00 [facility] HPV9 2017-02-01 Completed [facility] 00:00:00 [facility] HPV9 2017-02-01 Completed [facility] 00:00:00 [facility] HPV9 2017-02-01 Completed [facility] of 00:00:00 [facility] HPV9 2017-02-01 Completed [facility] 00:00:00 [facility] HPV9 2017-02-01 Completed [facility] 00:00:00 [facility] HPV9 2017-02-01 Completed [facility] 00:00:00 [facility] HPV9 2017-02-01 Completed [facility] 00:00:00 [facility] HPV9 2017-02-01 Completed [facility] 00:00:00 [facility] HPV9 2017-02-01 Completed [facility] 00:00:00 [facility] HPV9 2017-02-01 Completed [facility] 00:00:00 [facility] HPV9 2017-02-01 Completed [facility] 00:00:00 [facility] HPV9 2017-02-01 Completed [facility] 00:00:00 [facility] HPV9 2017-02-01 Completed [facility] 00:00:00 [facility] HPV9 2017-02-01 Completed [facility] 00:00:00 [facility] HPV9 2017-02-01 Completed [facility] 00:00:00 [facility] HPV9 2017-02-01 Completed [facility] 00:00:00 [facility] HPV9 2017-02-01 Completed [facility] 00:00:00 [facility] HPV9 2017-02-01 Completed [facility] 00:00:00 [facility] HPV9 2017-02-01 Completed [facility] 00:00:00 [facility] HPV9 2017-02-01 Completed [facility] of 00:00:00 [facility] HPV9 2017-02-01 Completed [facility] 00:00:00 [facility] HPV9 2017-02-01 Completed [facility] 00:00:00 [facility] HPV9 2017-02-01 Completed [facility] 00:00:00 [facility] HPV9 2017-02-01 Completed [facility] 00:00:00 [facility] HPV9 2017-02-01 Completed [facility] 00:00:00 [facility] HPV9 2017-02-01 Completed [facility] 00:00:00 [facility] HPV9 2017-02-01 Completed [facility] 00:00:00 [facility] HPV9 2017-02-01 Completed [facility] [...] HPV 2016-01-20 Completed [facility] 00:00:00 [facility] HPV 2016-01-20 Completed [facility] 00:00:00 [facility] HPV 2016-01-20 Completed [facility] 00:00:00 [facility] HPV 2016-01-20 Completed [facility] 00:00:00 [facility] HPV 2016-01-20 Completed [facility] 00:00:00 [facility] HPV 2016-01-20 Completed [facility] 00:00:00 [facility] HPV 2016-01-20 Completed [facility] 00:00:00 [facility] HPV 2016-01-20 Completed [facility] 00:00:00 [facility] HPV 2016-01-20 Completed [facility] 00:00:00 [facility] HPV 2016-01-20 Completed [facility] 00:00:00 [facility] HPV 2016-01-20 Completed [facility] of 00:00:00 [facility] HPV 2016-01-20 Completed [facility] 00:00:00 [facility] HPV 2016-01-20 Completed [facility] 00:00:00 [facility] HPV 2016-01-20 Completed [facility] 00:00:00 [facility] HPV 2016-01-20 Completed [facility] 00:00:00 [facility] HPV 2016-01-20 Completed [facility] 00:00:00 [facility] HPV 2016-01-20 Completed [facility] of 00:00:00 [facility] HPV 2016-01-20 Completed [facility] of 00:00:00 [facility] HPV 2016-01-20 Completed [facility] of 00:00:00 [facility] HPV 2016-01-20 Completed [facility] of 00:00:00 [facility] HPV 2016-01-20 Completed [facility] 00:00:00 [facility] HPV 2016-01-20 Completed [facility] 00:00:00 [facility] HPV 2016-01-20 Completed [facility] 00:00:00 [facility] HPV 2016-01-20 Completed [facility] 00:00:00 [facility] HPV 2016-01-20 Completed [facility] 00:00:00 [facility] HPV 2016-01-20 Completed [facility] 00:00:00 [facility] HPV 2016-01-20 Completed [facility] 00:00:00 [facility] HPV 2016-01-20 Completed [facility] 00:00:00 [facility] HPV 2016-01-20 Completed [facility] 00:00:00 [facility] HPV 2016-01-20 Completed [facility] 00:00:00 [facility] HPV 2016-01-20 Completed [facility] 00:00:00 [facility] HPV 2016-01-20 Completed [facility] of 00:00:00 [facility] HPV 2016-01-20 Completed [facility] of 00:00:00 [facility] HPV 2016-01-20 Completed [facility] of 00:00:00 [facility] HPV 2016-01-20 Completed [facility] 00:00:00 [facility] HPV 2016-01-20 Completed [facility] of 00:00:00 [facility] HPV 2016-01-20 Completed [facility] 00:00:00 [facility] HPV 2016-01-20 Completed [facility] 00:00:00 [facility] HPV 2016-01-20 Completed [facility] 00:00:00 [facility] HPV 2016-01-20 Completed [facility] 00:00:00 [facility] HPV 2016-01-20 Completed [facility] 00:00:00 [facility] HPV 2016-01-20 Completed [facility] 00:00:00 [facility] HPV 2016-01-20 Completed [facility] 00:00:00 [facility] HPV 2016-01-20 Completed [facility] 00:00:00 [facility] HPV 2016-01-20 Completed [facility] 00:00:00 [facility] HPV 2016-01-20 Completed [facility] of 00:00:00 [facility] HPV 2016-01-20 Completed [facility] 00:00:00 [facility] HPV 2016-01-20 Completed [facility] 00:00:00 [facility] Influenza Virus 2015-07-08 Completed [facility] Vaccine Quad IM 3+ 00:00:00 [facility] HPV9 2015-07-08 Completed [facility] 00:00:00 [facility] Influenza Virus 2015-07-08 Completed [facility] of Vaccine Quad IM 3+ 00:00:00 [facility] HPV9 2015-07-08 Completed [facility] 00:00:00 [facility] Influenza Virus 2015-07-08 Completed [facility] of Vaccine Quad IM 3+ 00:00:00 [facility] HPV9 2015-07-08 Completed [facility] 00:00:00 [facility] Influenza Virus 2015-07-08 Completed [facility] of Vaccine Quad IM 3+ 00:00:00 [facility] HPV9 2015-07-08 Completed [facility] 00:00:00 [facility] Influenza Virus 2015-07-08 Completed [facility] of Vaccine Quad IM 3+ 00:00:00 [facility] HPV9 2015-07-08 Completed [facility] 00:00:00 [facility] Influenza Virus 2015-07-08 Completed [facility] of Vaccine Quad IM 3+ 00:00:00 [facility] HPV9 2015-07-08 Completed [facility] 00:00:00 [facility] Influenza Virus 2015-07-08 Completed [facility] of Vaccine Quad IM 3+ 00:00:00 [facility] HPV9 2015-07-08 Completed [facility] 00:00:00 [facility] Influenza Virus 2015-07-08 Completed [facility] of Vaccine Quad IM 3+ 00:00:00 [facility] HPV9 2015-07-08 Completed [facility] 00:00:00 [facility] Influenza Virus 2015-07-08 Completed [facility] y of Vaccine Quad IM 3+ 00:00:00 [facility] HPV9 2015-07-08 Completed [facility] 00:00:00 [facility] Influenza Virus 2015-07-08 Completed [facility] of Vaccine Quad IM 3+ 00:00:00 [facility] HPV9 2015-07-08 Completed [facility] 00:00:00 [facility] Influenza Virus 2015-07-08 Completed [facility] of Vaccine Quad IM 3+ 00:00:00 [facility] HPV9 2015-07-08 Completed [facility] 00:00:00 [facility] Influenza Virus 2015-07-08 Completed [facility] y of Vaccine Quad IM 3+ 00:00:00 [facility] HPV9 2015-07-08 Completed [facility] 00:00:00 [facility] Influenza Virus 2015-07-08 Completed [facility] of Vaccine Quad IM 3+ 00:00:00 [facility] HPV9 2015-07-08 Completed [facility] 00:00:00 [facility] Influenza Virus 2015-07-08 Completed [facility] of Vaccine Quad IM 3+ 00:00:00 [facility] HPV9 2015-07-08 Completed [facility] 00:00:00 [facility] Influenza Virus 2015-07-08 Completed [facility] y of Vaccine Quad IM 3+ 00:00:00 [facility] HPV9 2015-07-08 Completed [facility] 00:00:00 [facility] Influenza Virus 2015-07-08 Completed [facility] y of Vaccine Quad IM 3+ 00:00:00 [facility] HPV9 2015-07-08 Completed [facility] 00:00:00 [facility] Influenza Virus 2015-07-08 Completed [facility] of Vaccine Quad IM 3+ 00:00:00 [facility] HPV9 2015-07-08 Completed [facility] 00:00:00 [facility] Influenza Virus 2015-07-08 Completed [facility] of Vaccine Quad IM 3+ 00:00:00 [facility] HPV9 2015-07-08 Completed [facility] 00:00:00 [facility] Influenza Virus 2015-07-08 Completed [facility] of Vaccine Quad IM 3+ 00:00:00 [facility] HPV9 2015-07-08 Completed [facility] 00:00:00 [facility] Influenza Virus 2015-07-08 Completed [facility] of Vaccine Quad IM 3+ 00:00:00 [facility] HPV9 2015-07-08 Completed [facility] 00:00:00 [facility] Influenza Virus 2015-07-08 Completed [facility] of Vaccine Quad IM 3+ 00:00:00 [facility] HPV9 2015-07-08 Completed [facility] 00:00:00 [facility] Influenza Virus 2015-07-08 Completed [facility] of Vaccine Quad IM 3+ 00:00:00 [facility] HPV9 2015-07-08 Completed [facility] 00:00:00 [facility] Influenza Virus 2015-07-08 Completed [facility] y of Vaccine Quad IM 3+ 00:00:00 [facility] HPV9 2015-07-08 Completed [facility] 00:00:00 [facility] Influenza Virus 2015-07-08 Completed [facility] y of Vaccine Quad IM 3+ 00:00:00 [facility] HPV9 2015-07-08 Completed [facility] 00:00:00 [facility] Influenza Virus 2015-07-08 Completed [facility] y of Vaccine Quad IM 3+ 00:00:00 [facility] HPV9 2015-07-08 Completed [facility] 00:00:00 [facility] Influenza Virus 2015-07-08 Completed [facility] y of Vaccine Quad IM 3+ 00:00:00 [facility] HPV9 2015-07-08 Completed [facility] 00:00:00 [facility] Influenza Virus 2015-07-08 Completed [facility] y of Vaccine Quad IM 3+ 00:00:00 [facility] HPV9 2015-07-08 Completed [facility] 00:00:00 [facility] Influenza Virus 2015-07-08 Completed [facility] of Vaccine Quad IM 3+ 00:00:00 [facility] HPV9 2015-07-08 Completed [facility] 00:00:00 [facility] Influenza Virus 2015-07-08 Completed [facility] of Vaccine Quad IM 3+ 00:00:00 [facility] HPV9 2015-07-08 Completed [facility] 00:00:00 [facility] Influenza Virus 2015-07-08 Completed [facility] of Vaccine Quad IM 3+ 00:00:00 [facility] HPV9 2015-07-08 Completed [facility] 00:00:00 [facility] Influenza Virus 2015-07-08 Completed [facility] of Vaccine Quad IM 3+ 00:00:00 [facility] HPV9 2015-07-08 Completed [facility] 00:00:00 [facility] Influenza Virus 2015-07-08 Completed [facility] of Vaccine Quad IM 3+ 00:00:00 [facility] HPV9 2015-07-08 Completed [facility] 00:00:00 [facility] Influenza Virus 2015-07-08 Completed [facility] of Vaccine Quad IM 3+ 00:00:00 [facility] HPV9 2015-07-08 Completed [facility] 00:00:00 [facility] Influenza Virus 2015-07-08 Completed [facility] Vaccine Quad IM 3+ 00:00:00 [facility] [facility] HPV9 2015-07-08 Completed [facility] 00[facility]00:00 [facility] Influenza Virus 2015-07-08 Completed [facility] Vaccine Quad IM 3+ 00:00:00 [facility] HPV9 2015-07-08 Completed [facility] 00:00:00 [facility] Influenza Virus 2015-07-08 Completed [facility] Vaccine Quad IM 3+ 00:00:00 [facility] HPV9 2015-07-08 Completed [facility] 00:00:00 [facility] Influenza Virus 2015-07-08 Completed [facility] of Vaccine Quad IM 3+ 00:00:00 [facility] HPV9 2015-07-08 Completed [facility] 00:00:00 [facility] Influenza Virus 2015-07-08 Completed [facility] Vaccine Quad IM 3+ 00:00:00 [facility] HPV9 2015-07-08 Completed [facility] 00:00:00 [facility] Influenza Virus 2015-07-08 Completed [facility] Vaccine Quad IM 3+ 00:00:00 [facility] HPV9 2015-07-08 Completed [facility] 00:00:00 [facility] Influenza Virus 2015-07-08 Completed [facility] of Vaccine Quad IM 3+ 00:00:00 [facility] HPV9 2015-07-08 Completed [facility] 00:00:00 [facility] Influenza Virus 2015-07-08 Completed [facility] of Vaccine Quad IM 3+ 00:00:00 [facility] HPV9 2015-07-08 Completed [facility] 00:00:00 [facility] Influenza Virus 2015-07-08 Completed [facility] of Vaccine Quad IM 3+ 00:00:00 [facility] HPV9 2015-07-08 Completed [facility] 00:00:00 [facility] Influenza Virus 2015-07-08 Completed [facility] of Vaccine Quad IM 3+ 00:00:00 [facility] HPV9 2015-07-08 Completed [facility] 00:00:00 [facility] Influenza Virus 2015-07-08 Completed [facility] of Vaccine Quad IM 3+ 00:00:00 [facility] HPV9 2015-07-08 Completed [facility] 00:00:00 [facility] Influenza Virus 2015-07-08 Completed [facility] of Vaccine Quad IM 3+ 00:00:00 [facility] HPV9 2015-07-08 Completed [facility] 00:00:00 [facility] Influenza Virus 2015-07-08 Completed [facility] of Vaccine Quad IM 3+ 00:00:00 [facility] HPV9 2015-07-08 Completed [facility] 00:00:00 [facility] Influenza Virus 2015-07-08 Completed [facility] of Vaccine Quad IM 3+ 00:00:00 [facility] HPV9 2015-07-08 Completed [facility] 00:00:00 [facility] Influenza Virus 2015-07-08 Completed [facility] of Vaccine Quad IM 3+ 00:00:00 [facility] HPV9 2015-07-08 Completed [facility] 00:00:00 [facility] Influenza Virus 2015-07-08 Completed [facility] of Vaccine Quad IM 3+ 00:00:00 [facility] HPV9 2015-07-08 Completed [facility] 00:00:00 [facility] Influenza Virus 2015-07-08 Completed [facility] of Vaccine Quad IM 3+ 00:00:00 [facility] HPV9 2015-07-08 Completed [facility] 00:00:00 [facility] Influenza Virus 2015-07-08 Completed [facility] of Vaccine Quad IM 3+ 00:00:00 [facility] HPV9 2015-07-08 Completed [facility] 00:00:00 [facility] Influenza Virus 2015-07-08 Completed [facility] of Vaccine Quad IM 3+ 00:00:00 [facility] HPV9 2015-07-08 Completed [facility] 00:00:00 [facility] Influenza Virus 2015-07-08 Completed [facility] of Vaccine Quad IM 3+ 00:00:00 [facility] HPV9 2015-07-08 Completed [facility] 00:00:00 [facility] Influenza Virus 2015-07-08 Completed [facility] of Vaccine Quad IM 3+ 00:00:00 [facility] HPV9 2015-07-08 Completed [facility] 00:00:00 [facility] Influenza Virus 2015-07-08 Completed [facility] of Vaccine Quad IM 3+ 00:00:00 [facility] HPV9 2015-07-08 Completed [facility] 00:00:00 [facility] Influenza Virus 2015-07-08 Completed [facility] of Vaccine Quad IM 3+ 00:00:00 [facility] HPV9 2015-07-08 Completed [facility] 00:00:00 [facility] Influenza Virus 2015-07-08 Completed [facility] of Vaccine Quad IM 3+ 00:00:00 [facility] HPV9 2015-07-08 Completed [facility] 00:00:00 [facility] Influenza Virus 2014-04-02 Completed [facility] of Vaccine (3+ yrs) 00:00:00 [facility] Influenza Virus 2014-04-02 Completed [facility] of Vaccine (3+ yrs) 00:00:00 [facility] Influenza Virus 2014-04-02 Completed [facility] of Vaccine (3+ yrs) 00:00:00 [facility] Influenza Virus 2014-04-02 Completed [facility] of Vaccine (3+ yrs) 00:00:00 [facility] Influenza Virus 2014-04-02 Completed [facility] of Vaccine (3+ yrs) 00:00:00 [facility] Influenza Virus 2014-04-02 Completed [facility] Vaccine (3+ yrs) 00:00:00 [facility] Influenza Virus 2014-04-02 Completed [facility] of Vaccine (3+ yrs) 00:00:00 [facility] Influenza Virus 2014-04-02 Completed [facility] y of Vaccine (3+ yrs) 00:00:00 [facility] Influenza Virus 2014-04-02 Completed [facility] of Vaccine (3+ yrs) 00:00:00 [facility] Influenza Virus 2014-04-02 Completed [facility] of Vaccine (3+ yrs) 00:00:00 [facility] Influenza Virus 2014-04-02 Completed [facility] of Vaccine (3+ yrs) 00:00:00 [facility] Influenza Virus 2014-04-02 Completed [facility] of Vaccine (3+ yrs) 00:00:00 [facility] Influenza Virus 2014-04-02 Completed [facility] of Vaccine (3+ yrs) 00:00:00 [facility] Influenza Virus 2014-04-02 Completed [facility] of Vaccine (3+ yrs) 00:00:00 [facility] Influenza Virus 2014-04-02 Completed [facility] of Vaccine (3+ yrs) 00:00:00 [facility] Influenza Virus 2014-04-02 Completed [facility] of Vaccine (3+ yrs) 00:00:00 [facility] Influenza Virus 2014-04-02 Completed [facility] of Vaccine (3+ yrs) 00:00:00 [facility] Influenza Virus 2014-04-02 Completed [facility] of Vaccine (3+ yrs) 00:00:00 [facility] Influenza Virus 2014-04-02 Completed [facility] of Vaccine (3+ yrs) 00:00:00 [facility] Influenza Virus 2014-04-02 Completed [facility] of Vaccine (3+ yrs) 00:00:00 [facility] Influenza Virus 2014-04-02 Completed [facility] of Vaccine (3+ yrs) 00:00:00 [facility] Influenza Virus 2014-04-02 Completed [facility] of Vaccine (3+ yrs) 00:00:00 [facility] Influenza Virus 2014-04-02 Completed [facility] of Vaccine (3+ yrs) 00:00:00 [facility] Influenza Virus 2014-04-02 Completed [facility] Vaccine (3+ yrs) 00:00:00 [facility] Influenza Virus 2014-04-02 Completed [facility] Vaccine (3+ yrs) 00:00:00 [facility] Influenza Virus 2014-04-02 Completed [facility] of Vaccine (3+ yrs) 00:00:00 [facility] Influenza Virus 2014-04-02 Completed [facility] of Vaccine (3+ yrs) 00:00:00 [facility] Influenza Virus 2014-04-02 Completed [facility] of Vaccine (3+ yrs) 00:00:00 [facility] Influenza Virus 2014-04-02 Completed [facility] of Vaccine (3+ yrs) 00:00:00 [facility] Influenza Virus 2014-04-02 Completed [facility] of Vaccine (3+ yrs) 00:00:00 [facility] Influenza Virus 2014-04-02 Completed [facility] of Vaccine (3+ yrs) 00:00:00 [facility] Influenza Virus 2014-04-02 Completed [facility] Vaccine (3+ yrs) 00:00:00 [facility] Influenza Virus 2014-04-02 Completed [facility] Vaccine (3+ yrs) 00:00:00 [facility] Influenza Virus 2014-04-02 Completed [facility] Vaccine (3+ yrs) 00:00:00 [facility] Influenza Virus 2014-04-02 Completed [facility] Vaccine (3+ yrs) 00:00:00 [facility] Influenza Virus 2014-04-02 Completed [facility] Vaccine (3+ yrs) 00:00:00 [facility] Influenza Virus 2014-04-02 Completed [facility] Vaccine (3+ yrs) 00:00:00 [facility] Influenza Virus 2014-04-02 Completed [facility] Vaccine (3+ yrs) 00:00:00 [facility] Influenza Virus 2014-04-02 Completed [facility] Vaccine (3+ yrs) 00:00:00 [facility] Influenza Virus 2014-04-02 Completed [facility] of Vaccine (3+ yrs) 00:00:00 [facility] Influenza Virus 2014-04-02 Completed [facility] Vaccine (3+ yrs) 00:00:00 [facility] Influenza Virus 2014-04-02 Completed [facility] Vaccine (3+ yrs) 00:00:00 [facility] Influenza Virus 2014-04-02 Completed [facility] Vaccine (3+ yrs) 00:00:00 [facility] Influenza Virus 2014-04-02 Completed [facility] Vaccine (3+ yrs) 00:00:00 [facility] Influenza Virus 2014-04-02 Completed [facility] Vaccine (3+ yrs) 00:00:00 [facility] Influenza Virus 2014-04-02 Completed [facility] Vaccine (3+ yrs) 00:00:00 [facility] Influenza Virus 2014-04-02 Completed [facility] Vaccine (3+ yrs) 00:00:00 [facility] Influenza Virus 2014-04-02 Completed [facility] of Vaccine (3+ yrs) 00:00:00 [facility] Influenza Virus 2014-04-02 Completed [facility] Vaccine (3+ yrs) 00:00:00 [facility] Influenza Virus 2014-04-02 Completed [facility] Vaccine (3+ yrs) 00:00:00 [facility] Influenza Virus 2014-04-02 Completed [facility] Vaccine (3+ yrs) 00:00:00 [facility] Influenza Virus 2014-04-02 Completed [facility] Vaccine (3+ yrs) 00:00:00 [facility] Influenza Virus 2014-04-02 Completed [facility] Vaccine (3+ yrs) 00:00:00 [facility] Influenza Virus 2014-04-02 Completed [facility] Vaccine (3+ yrs) 00:00:00 [facility] Influenza Virus 2014-04-02 Completed [facility] Vaccine (3+ yrs) 00:00:00 [facility] Influenza Virus 2014-04-02 Completed [facility] Vaccine (3+ yrs) 00:00:00 [facility] Influenza Virus 2014-04-02 Completed [facility] Vaccine (3+ yrs) 00:00:00 [facility] Influenza Virus 2013-05-22 Completed [facility] Vaccine (3+ yrs) 00:00:00 [facility] Meningococcal 2013-05-22 Completed [facility] Polysaccharide 00:00:00 [facility] (groups A, C, Y and Branc h W-135) conjugate vaccine (MCV4P) TDAP 2013-05-22 Completed [facility] 00:00:00 [facility] Influenza Virus 2013-05-22 Completed [facility] Vaccine (3+ yrs) 00:00:00 [facility] Meningococcal 2013-05-22 Completed [facility] Polysaccharide 00:00:00 [facility] (groups A, C, Y and Branc h W-135) conjugate vaccine (MCV4P) TDAP 2013-05-22 Completed [facility] 00:00:00 [facility] Influenza Virus 2013-05-22 Completed [facility] Vaccine (3+ yrs) 00:00:00 [facility] Meningococcal 2013-05-22 Completed [facility] Polysaccharide 00:00:00 [facility] (groups A, C, Y and Branc h W-135) conjugate vaccine (MCV4P) TDAP 2013-05-22 Completed [facility] 00:00:00 [facility] Influenza Virus 2013-05-22 Completed [facility] Vaccine (3+ yrs) 00:00:00 [facility] Meningococcal 2013-05-22 Completed [facility] Polysaccharide 00:00:00 [facility] (groups A, C, Y and Branc h W-135) conjugate vaccine (MCV4P) TDAP 2013-05-22 Completed [facility] 00:00:00 [facility] Influenza Virus 2013-05-22 Completed [facility] of Vaccine (3+ yrs) 00:00:00 [facility] Meningococcal 2013-05-22 Completed [facility] Polysaccharide 00:00:00 [facility] (groups A, C, Y and Branc h W-135) conjugate vaccine (MCV4P) TDAP 2013-05-22 Completed [facility] 00:00:00 [facility] Influenza Virus 2013-05-22 Completed [facility] Vaccine (3+ yrs) 00:00:00 [facility] Meningococcal 2013-05-22 Completed [facility] Polysaccharide 00:00:00 [facility] (groups A, C, Y and Branc h W-135) conjugate vaccine (MCV4P) TDAP 2013-05-22 Completed [facility] 00:00:00 [facility] Influenza Virus 2013-05-22 Completed [facility] of Vaccine (3+ yrs) 00:00:00 [facility] Meningococcal 2013-05-22 Completed [facility] Polysaccharide 00:00:00 [facility] (groups A, C, Y and Branc h W-135) conjugate vaccine (MCV4P) TDAP 2013-05-22 Completed [facility] 00:00:00 [facility] Influenza Virus 2013-05-22 Completed [facility] of Vaccine (3+ yrs) 00:00:00 [facility] Meningococcal 2013-05-22 Completed [facility] Polysaccharide 00:00:00 [facility] (groups A, C, Y and Branc h W-135) conjugate vaccine (MCV4P) TDAP 2013-05-22 Completed [facility] 00:00:00 [facility] Influenza Virus 2013-05-22 Completed [facility] of Vaccine (3+ yrs) 00:00:00 [facility] Meningococcal 2013-05-22 Completed [facility] Polysaccharide 00:00:00 [facility] (groups A, C, Y and Branc h W-135) conjugate vaccine (MCV4P) TDAP 2013-05-22 Completed [facility] 00:00:00 [facility] Influenza Virus 2013-05-22 Completed [facility] of Vaccine (3+ yrs) 00:00:00 [facility] Meningococcal 2013-05-22 Completed [facility] Polysaccharide 00:00:00 [facility] (groups A, C, Y and Branc h W-135) conjugate vaccine (MCV4P) TDAP 2013-05-22 Completed [facility] 00:00:00 [facility] Influenza Virus 2013-05-22 Completed [facility] Vaccine (3+ yrs) 00:00:00 [facility] Meningococcal 2013-05-22 Completed [facility] Polysaccharide 00:00:00 [facility] (groups A, C, Y and Branc h W-135) conjugate vaccine (MCV4P) TDAP 2013-05-22 Completed [facility] 00:00:00 [facility] Influenza Virus 2013-05-22 Completed [facility] Vaccine (3+ yrs) 00:00:00 [facility] Meningococcal 2013-05-22 Completed [facility] Polysaccharide 00:00:00 [facility] (groups A, C, Y and Branc h W-135) conjugate vaccine (MCV4P) TDAP 2013-05-22 Completed [facility] 00:00:00 [facility] Influenza Virus 2013-05-22 Completed [facility] Vaccine (3+ yrs) 00:00:00 [facility] Meningococcal 2013-05-22 Completed [facility] Polysaccharide 00:00:00 [facility] (groups A, C, Y and Branc h W-135) conjugate vaccine (MCV4P) TDAP 2013-05-22 Completed [facility] 00:00:00 [facility] Influenza Virus 2013-05-22 Completed [facility] Vaccine (3+ yrs) 00:00:00 [facility] Meningococcal 2013-05-22 Completed [facility] Polysaccharide 00:00:00 [facility] (groups A, C, Y and Branc h W-135) conjugate vaccine (MCV4P) TDAP 2013-05-22 Completed [facility] 00:00:00 [facility] Influenza Virus 2013-05-22 Completed [facility] Vaccine (3+ yrs) 00:00:00 [facility] Meningococcal 2013-05-22 Completed [facility] Polysaccharide 00:00:00 [facility] (groups A, C, Y and Branc h W-135) conjugate vaccine (MCV4P) TDAP 2013-05-22 Completed [facility] 00:00:00 [facility] Influenza Virus 2013-05-22 Completed [facility] Vaccine (3+ yrs) 00:00:00 [facility] Meningococcal 2013-05-22 Completed [facility] Polysaccharide 00:00:00 [facility] (groups A, C, Y and Branc h W-135) conjugate vaccine (MCV4P) TDAP 2013-05-22 Completed [facility] 00:00:00 [facility] Influenza Virus 2013-05-22 Completed [facility] Vaccine (3+ yrs) 00:00:00 [facility] Meningococcal 2013-05-22 Completed [facility] Polysaccharide 00:00:00 [facility] (groups A, C, Y and Branc h W-135) conjugate vaccine (MCV4P) TDAP 2013-05-22 Completed [facility] 00:00:00 [facility] Influenza Virus 2013-05-22 Completed [facility] Vaccine (3+ yrs) 00:00:00 [facility] Meningococcal 2013-05-22 Completed [facility] Polysaccharide 00:00:00 [facility] (groups A, C, Y and Branc h W-135) conjugate vaccine (MCV4P) TDAP 2013-05-22 Completed [facility] 00:00:00 [facility] Influenza Virus 2013-05-22 Completed [facility] Vaccine (3+ yrs) 00:00:00 [facility] Meningococcal 2013-05-22 Completed [facility] Polysaccharide 00:00:00 [facility] (groups A, C, Y and Branc h W-135) conjugate vaccine (MCV4P) TDAP 2013-05-22 Completed [facility] 00:00:00 [facility] Influenza Virus 2013-05-22 Completed [facility] of Vaccine (3+ yrs) 00:00:00 [facility] Meningococcal 2013-05-22 Completed [facility] Polysaccharide 00:00:00 [facility] (groups A, C, Y and Branc h W-135) conjugate vaccine (MCV4P) TDAP 2013-05-22 Completed [facility] 00:00:00 [facility] Influenza Virus 2013-05-22 Completed [facility] Vaccine (3+ yrs) 00:00:00 [facility] Meningococcal 2013-05-22 Completed [facility] Polysaccharide 00:00:00 [facility] (groups A, C, Y and Branc h W-135) conjugate vaccine (MCV4P) TDAP 2013-05-22 Completed [facility] 00:00:00 [facility] Influenza Virus 2013-05-22 Completed [facility] Vaccine (3+ yrs) 00:00:00 [facility] Meningococcal 2013-05-22 Completed [facility] Polysaccharide 00:00:00 [facility] (groups A, C, Y and Branc h W-135) conjugate vaccine (MCV4P) TDAP 2013-05-22 Completed [facility] 00:00:00 [facility] Influenza Virus 2013-05-22 Completed [facility] Vaccine (3+ yrs) 00:00:00 [facility] Meningococcal 2013-05-22 Completed [facility] Polysaccharide 00:00:00 [facility] (groups A, C, Y and Branc h W-135) conjugate vaccine (MCV4P) TDAP 2013-05-22 Completed [facility] 00:00:00 [facility] Influenza Virus 2013-05-22 Completed [facility] Vaccine (3+ yrs) 00:00:00 [facility] Meningococcal 2013-05-22 Completed [facility] Polysaccharide 00:00:00 [facility] (groups A, C, Y and Branc h W-135) conjugate vaccine (MCV4P) TDAP 2013-05-22 Completed [facility] 00:00:00 [facility] Influenza Virus 2013-05-22 Completed [facility] Vaccine (3+ yrs) 00:00:00 [facility] Meningococcal 2013-05-22 Completed [facility] Polysaccharide 00:00:00 [facility] (groups A, C, Y and Branc h W-135) conjugate vaccine (MCV4P) TDAP 2013-05-22 Completed [facility] 00:00:00 [facility] Influenza Virus 2013-05-22 Completed [facility] Vaccine (3+ yrs) 00:00:00 [facility] Meningococcal 2013-05-22 Completed [facility] Polysaccharide 00:00:00 [facility] (groups A, C, Y and Branc h W-135) conjugate vaccine (MCV4P) TDAP 2013-05-22 Completed [facility] 00:00:00 [facility] Influenza Virus 2013-05-22 Completed [facility] Vaccine (3+ yrs) 00:00:00 [facility] Meningococcal 2013-05-22 Completed [facility] Polysaccharide 00:00:00 [facility] (groups A, C, Y and Branc h W-135) conjugate vaccine (MCV4P) TDAP 2013-05-22 Completed [facility] 00:00:00 [facility] Influenza Virus 2013-05-22 Completed [facility] Vaccine (3+ yrs) 00:00:00 [facility] Meningococcal 2013-05-22 Completed [facility] Polysaccharide 00:00:00 [facility] (groups A, C, Y and Branc h W-135) conjugate vaccine (MCV4P) TDAP 2013-05-22 Completed [facility] 00:00:00 [facility] Influenza Virus 2013-05-22 Completed [facility] Vaccine (3+ yrs) 00:00:00 [facility] Meningococcal 2013-05-22 Completed [facility] Polysaccharide 00:00:00 [facility] (groups A, C, Y and Branc h W-135) conjugate vaccine (MCV4P) TDAP 2013-05-22 Completed [facility] 00:00:00 [facility] Influenza Virus 2013-05-22 Completed [facility] Vaccine (3+ yrs) 00:00:00 [facility] Meningococcal 2013-05-22 Completed [facility] Polysaccharide 00:00:00 [facility] (groups A, C, Y and Branc h W-135) conjugate vaccine (MCV4P) TDAP 2013-05-22 Completed [facility] 00:00:00 [facility] Influenza Virus 2013-05-22 Completed [facility] Vaccine (3+ yrs) 00:00:00 [facility] Meningococcal 2013-05-22 Completed [facility] Polysaccharide 00:00:00 [facility] (groups A, C, Y and Branc h W-135) conjugate vaccine (MCV4P) TDAP 2013-05-22 Completed [facility] 00:00:00 [facility] Influenza Virus 2013-05-22 Completed [facility] Vaccine (3+ yrs) 00:00:00 [facility] Meningococcal 2013-05-22 Completed [facility] Polysaccharide 00:00:00 [facility] (groups A, C, Y and Branc h W-135) conjugate vaccine (MCV4P) TDAP 2013-05-22 Completed [facility] 00:00:00 [facility] Influenza Virus 2013-05-22 Completed [facility] Vaccine (3+ yrs) 00:00:00 [facility] Meningococcal 2013-05-22 Completed [facility] Polysaccharide 00:00:00 [facility] (groups A, C, Y and Branc h W-135) conjugate vaccine (MCV4P) TDAP 2013-05-22 Completed [facility] 00:00:00 [facility] Influenza Virus 2013-05-22 Completed [facility] Vaccine (3+ yrs) 00:00:00 [facility] Meningococcal 2013-05-22 Completed [facility] Polysaccharide 00:00:00 [facility] (groups A, C, Y and Branc h W-135) conjugate vaccine (MCV4P) TDAP 2013-05-22 Completed [facility] 00:00:00 [facility] Influenza Virus 2013-05-22 Completed [facility] Vaccine (3+ yrs) 00:00:00 [facility] Meningococcal 2013-05-22 Completed [facility] Polysaccharide 00:00:00 [facility] (groups A, C, Y and Branc h W-135) conjugate vaccine (MCV4P) TDAP 2013-05-22 Completed [facility] 00:00:00 [facility] Influenza Virus 2013-05-22 Completed [facility] Vaccine (3+ yrs) 00:00:00 [facility] Meningococcal 2013-05-22 Completed [facility] Polysaccharide 00:00:00 [facility] (groups A, C, Y and Branc h W-135) conjugate vaccine (MCV4P) TDAP 2013-05-22 Completed [facility] 00:00:00 [facility] Influenza Virus 2013-05-22 Completed [facility] Vaccine (3+ yrs) 00:00:00 [facility] Meningococcal 2013-05-22 Completed [facility] Polysaccharide 00:00:00 [facility] (groups A, C, Y and Branc h W-135) conjugate vaccine (MCV4P) TDAP 2013-05-22 Completed [facility] 00:00:00 [facility] Influenza Virus 2013-05-22 Completed [facility] Vaccine (3+ yrs) 00:00:00 [facility] Meningococcal 2013-05-22 Completed [facility] Polysaccharide 00:00:00 [facility] (groups A, C, Y and Branc h W-135) conjugate vaccine (MCV4P) TDAP 2013-05-22 Completed [facility] 00:00:00 [facility] Influenza Virus 2013-05-22 Completed [facility] Vaccine (3+ yrs) 00:00:00 [facility] Meningococcal 2013-05-22 Completed [facility] Polysaccharide 00:00:00 [facility] (groups A, C, Y and Branc h W-135) conjugate vaccine (MCV4P) TDAP 2013-05-22 Completed [facility] 00:00:00 [facility] Influenza Virus 2013-05-22 Completed [facility] Vaccine (3+ yrs) 00:00:00 [facility] Meningococcal 2013-05-22 Completed [facility] Polysaccharide 00:00:00 [facility] (groups A, C, Y and Branc h W-135) conjugate vaccine (MCV4P) TDAP 2013-05-22 Completed [facility] 00:00:00 [facility] Influenza Virus 2013-05-22 Completed [facility] Vaccine (3+ yrs) 00:00:00 [facility] Meningococcal 2013-05-22 Completed [facility] Polysaccharide 00:00:00 [facility] (groups A, C, Y and Branc h W-135) conjugate vaccine (MCV4P) TDAP 2013-05-22 Completed [facility] 00:00:00 [facility] Influenza Virus 2013-05-22 Completed [facility] Vaccine (3+ yrs) 00:00:00 [facility] Meningococcal 2013-05-22 Completed [facility] Polysaccharide 00:00:00 [facility] (groups A, C, Y and Branc h W-135) conjugate vaccine (MCV4P) TDAP 2013-05-22 Completed [facility] 00:00:00 [facility] Influenza Virus 2013-05-22 Completed [facility] Vaccine (3+ yrs) 00:00:00 [facility] Meningococcal 2013-05-22 Completed [facility] Polysaccharide 00:00:00 [facility] (groups A, C, Y and Branc h W-135) conjugate vaccine (MCV4P) TDAP 2013-05-22 Completed [facility] 00:00:00 [facility] Influenza Virus 2013-05-22 Completed [facility] Vaccine (3+ yrs) 00:00:00 [facility] Meningococcal 2013-05-22 Completed [facility] Polysaccharide 00:00:00 [facility] (groups A, C, Y and Branc h W-135) conjugate vaccine (MCV4P) TDAP 2013-05-22 Completed [facility] 00:00:00 [facility] Influenza Virus 2013-05-22 Completed [facility] Vaccine (3+ yrs) 00:00:00 [facility] Meningococcal 2013-05-22 Completed [facility] Polysaccharide 00:00:00 [facility] (groups A, C, Y and Branc h W-135) conjugate vaccine (MCV4P) TDAP 2013-05-22 Completed [facility] 00:00:00 [facility] Influenza Virus 2013-05-22 Completed [facility] Vaccine (3+ yrs) 00:00:00 [facility] Meningococcal 2013-05-22 Completed [facility] Polysaccharide 00:00:00 [facility] (groups A, C, Y and Branc h W-135) conjugate vaccine (MCV4P) TDAP 2013-05-22 Completed [facility] 00:00:00 [facility] Influenza Virus 2013-05-22 Completed [facility] Vaccine (3+ yrs) 00:00:00 [facility] Meningococcal 2013-05-22 Completed [facility] Polysaccharide 00:00:00 [facility] (groups A, C, Y and Branc h W-135) conjugate vaccine (MCV4P) TDAP 2013-05-22 Completed [facility] 00:00:00 [facility] Influenza Virus 2013-05-22 Completed [facility] Vaccine (3+ yrs) 00:00:00 [facility] Meningococcal 2013-05-22 Completed [facility] Polysaccharide 00:00:00 [facility] (groups A, C, Y and Branc h W-135) conjugate vaccine (MCV4P) TDAP 2013-05-22 Completed [facility] 00:00:00 [facility] Influenza Virus 2013-05-22 Completed [facility] Vaccine (3+ yrs) 00:00:00 [facility] Meningococcal 2013-05-22 Completed [facility] Polysaccharide 00:00:00 [facility] (groups A, C, Y and Branc h W-135) conjugate vaccine (MCV4P) TDAP 2013-05-22 Completed [facility] 00:00:00 [facility] Influenza Virus 2013-05-22 Completed [facility] Vaccine (3+ yrs) 00:00:00 [facility] Meningococcal 2013-05-22 Completed [facility] Polysaccharide 00:00:00 [facility] (groups A, C, Y and Branc h W-135) conjugate vaccine (MCV4P) TDAP 2013-05-22 Completed [facility] 00:00:00 [facility] Influenza Virus 2013-05-22 Completed [facility] Vaccine (3+ yrs) 00:00:00 [facility] Meningococcal 2013-05-22 Completed [facility] Polysaccharide 00:00:00 [facility] (groups A, C, Y and Branc h W-135) conjugate vaccine (MCV4P) TDAP 2013-05-22 Completed [facility] 00:00:00 [facility] Influenza Virus 2013-05-22 Completed [facility] Vaccine (3+ yrs) 00:00:00 [facility] Meningococcal 2013-05-22 Completed [facility] Polysaccharide 00:00:00 [facility] (groups A, C, Y and Branc h W-135) conjugate vaccine (MCV4P) TDAP 2013-05-22 Completed [facility] 00:00:00 [facility] Influenza Virus 2013-05-22 Completed [facility] Vaccine (3+ yrs) 00:00:00 [facility] Meningococcal 2013-05-22 Completed [facility] Polysaccharide 00:00:00 [facility] (groups A, C, Y and Branc h W-135) conjugate vaccine (MCV4P) TDAP 2013-05-22 Completed [facility] 00:00:00 [facility] Influenza Virus 2013-05-22 Completed [facility] Vaccine (3+ yrs) 00:00:00 [facility] Meningococcal 2013-05-22 Completed [facility] Polysaccharide 00:00:00 [facility] (groups A, C, Y and Branc h W-135) conjugate vaccine (MCV4P) TDAP 2013-05-22 Completed [facility] 00:00:00 [facility] Influenza Virus 2013-05-22 Completed [facility] Vaccine (3+ yrs) 00:00:00 [facility] Meningococcal 2013-05-22 Completed [facility] Polysaccharide 00:00:00 [facility] (groups A, C, Y and Branc h W-135) conjugate vaccine (MCV4P) TDAP 2013-05-22 Completed [facility] 00:00:00 [facility] Influenza Virus 2013-05-22 Completed [facility] Vaccine (3+ yrs) 00:00:00 [facility] Meningococcal 2013-05-22 Completed [facility] Polysaccharide 00:00:00 [facility] (groups A, C, Y and Branc h W-135) conjugate vaccine (MCV4P) TDAP 2013-05-22 Completed [facility] 00:00:00 [facility] Influenza Virus 2013-05-22 Completed [facility] Vaccine (3+ yrs) 00:00:00 [facility] Meningococcal 2013-05-22 Completed [facility] Polysaccharide 00:00:00 [facility] (groups A, C, Y and Branc h W-135) conjugate vaccine (MCV4P) TDAP 2013-05-22 Completed [facility] 00:00:00 [facility] Influenza Virus 2012-06-13 Completed [facility] Vaccine 00:00:00 [facility] Influenza Virus 2012-06-13 Completed [facility] Vaccine 00:00:00 [facility] Influenza Virus 2012-06-13 Completed [facility] Vaccine 00:00:00 [facility] Influenza Virus 2012-06-13 Completed [facility] Vaccine 00:00:00 [facility] Influenza Virus 2012-06-13 Completed [facility] Vaccine 00:00:00 [facility] Influenza Virus 2012-06-13 Completed [facility] Vaccine 00:00:00 [facility] Influenza Virus 2012-06-13 Completed [facility] Vaccine 00:00:00 [facility] Influenza Virus 2012-06-13 Completed [facility] Vaccine 00:00:00 [facility] Influenza Virus 2012-06-13 Completed [facility] Vaccine 00:00:00 [facility] Influenza Virus 2012-06-13 Completed [facility] Vaccine 00:00:00 [facility] Influenza Virus 2012-06-13 Completed [facility] Vaccine 00:00:00 [facility] Influenza Virus 2012-06-13 Completed [facility] Vaccine 00:00:00 [facility] Influenza Virus 2012-06-13 Completed [facility] Vaccine 00:00:00 [facility] Influenza Virus 2012-06-13 Completed [facility] Vaccine 00:00:00 [facility] Influenza Virus 2012-06-13 Completed [facility] Vaccine 00:00:00 [facility] Influenza Virus 2012-06-13 Completed [facility] Vaccine 00:00:00 [facility] Influenza Virus 2012-06-13 Completed [facility] Vaccine 00:00:00 [facility] Influenza Virus 2012-06-13 Completed [facility] Vaccine 00:00:00 [facility] Influenza Virus 2012-06-13 Completed [facility] Vaccine 00:00:00 [facility] Influenza Virus 2012-06-13 Completed [facility] Vaccine 00:00:00 [facility] Influenza Virus 2012-06-13 Completed [facility] Vaccine 00:00:00 [facility] Influenza Virus 2012-06-13 Completed [facility] Vaccine 00:00:00 [facility] Influenza Virus 2012-06-13 Completed [facility] Vaccine 00:00:00 [facility] Influenza Virus 2012-06-13 Completed [facility] Vaccine 00:00:00 [facility] Influenza Virus 2012-06-13 Completed [facility] Vaccine 00:00:00 [facility] Influenza Virus 2012-06-13 Completed [facility] Vaccine 00:00:00 [facility] Influenza Virus 2012-06-13 Completed [facility] Vaccine 00:00:00 [facility] Influenza Virus 2012-06-13 Completed [facility] Vaccine 00:00:00 [facility] Influenza Virus 2012-06-13 Completed [facility] Vaccine 00:00:00 [facility] Influenza Virus 2012-06-13 Completed [facility] Vaccine 00:00:00 [facility] Influenza Virus 2012-06-13 Completed [facility] Vaccine 00:00:00 [facility] Influenza Virus 2012-06-13 Completed [facility] Vaccine 00:00:00 [facility] Influenza Virus 2012-06-13 Completed [facility] Vaccine 00:00:00 [facility] Influenza Virus 2012-06-13 Completed [facility] Vaccine 00:00:00 [facility] Influenza Virus 2012-06-13 Completed [facility] Vaccine 00:00:00 [facility] Influenza Virus 2012-06-13 Completed [facility] Vaccine 00:00:00 [facility] Influenza Virus 2012-06-13 Completed [facility] Vaccine 00:00:00 [facility] Influenza Virus 2012-06-13 Completed [facility] Vaccine 00:00:00 [facility] Influenza Virus 2012-06-13 Completed [facility] Vaccine 00:00:00 [facility] Influenza Virus 2012-06-13 Completed [facility] Vaccine 00:00:00 [facility] Influenza Virus 2012-06-13 Completed [facility] Vaccine 00:00:00 [facility] Influenza Virus 2012-06-13 Completed [facility] Vaccine 00:00:00 [facility] Influenza Virus 2012-06-13 Completed [facility] Vaccine 00:00:00 [facility] Influenza Virus 2012-06-13 Completed [facility] Vaccine 00:00:00 [facility] Influenza Virus 2012-06-13 Completed [facility] Vaccine 00:00:00 [facility] Influenza Virus 2012-06-13 Completed [facility] Vaccine 00:00:00 [facility] Influenza Virus 2012-06-13 Completed [facility] Vaccine 00:00:00 [facility] Influenza Virus 2012-06-13 Completed [facility] Vaccine 00:00:00 [facility] Influenza Virus 2012-06-13 Completed [facility] Vaccine 00:00:00 [facility] Influenza Virus 2012-06-13 Completed [facility] Vaccine 00:00:00 [facility] Influenza Virus 2012-06-13 Completed [facility] Vaccine 00:00:00 [facility] Influenza Virus 2012-06-13 Completed [facility] Vaccine 00:00:00 [facility] Influenza Virus 2012-06-13 Completed [facility] Vaccine 00:00:00 [facility] Influenza Virus 2012-06-13 Completed [facility] Vaccine 00:00:00 [facility] Influenza Virus 2012-06-13 Completed [facility] Vaccine 00:00:00 [facility] Influenza Virus 2012-06-13 Completed [facility] Vaccine 00:00:00 [facility] Influenza Virus 2012-06-13 Completed [facility] Vaccine 00:00:00 [facility] Influenza Virus 2011-05-18 Completed [facility] Vaccine 00:00:00 [facility] Influenza Virus 2011-05-18 Completed [facility] Vaccine 00:00:00 [facility] Influenza Virus 2011-05-18 Completed [facility] Vaccine 00:00:00 [facility] Influenza Virus 2011-05-18 Completed [facility] Vaccine 00:00:00 [facility] Influenza Virus 2011-05-18 Completed [facility] Vaccine 00:00:00 [facility] Influenza Virus 2011-05-18 Completed [facility] Vaccine 00:00:00 [facility] Influenza Virus 2011-05-18 Completed [facility] Vaccine 00:00:00 [facility] Influenza Virus 2011-05-18 Completed [facility] Vaccine 00:00:00 [facility] Influenza Virus 2011-05-18 Completed [facility] Vaccine 00:00:00 [facility] Influenza Virus 2011-05-18 Completed [facility] Vaccine 00:00:00 [facility] Influenza Virus 2011-05-18 Completed [facility] Vaccine 00:00:00 [facility] Influenza Virus 2011-05-18 Completed [facility] Vaccine 00:00:00 [facility] Influenza Virus 2011-05-18 Completed [facility] Vaccine 00:00:00 [facility] Influenza Virus 2011-05-18 Completed [facility] Vaccine 00:00:00 [facility] Influenza Virus 2011-05-18 Completed [facility] Vaccine 00:00:00 [facility] Influenza Virus 2011-05-18 Completed [facility] Vaccine 00:00:00 [facility] Influenza Virus 2011-05-18 Completed [facility] Vaccine 00:00:00 [facility] Influenza Virus 2011-05-18 Completed [facility] Vaccine 00:00:00 [facility] Influenza Virus 2011-05-18 Completed [facility] Vaccine 00:00:00 [facility] Influenza Virus 2011-05-18 Completed [facility] Vaccine 00:00:00 [facility] Influenza Virus 2011-05-18 Completed [facility] Vaccine 00:00:00 [facility] Influenza Virus 2011-05-18 Completed [facility] Vaccine 00:00:00 [facility] Influenza Virus 2011-05-18 Completed [facility] Vaccine 00:00:00 [facility] Influenza Virus 2011-05-18 Completed [facility] Vaccine 00:00:00 [facility] Influenza Virus 2011-05-18 Completed [facility] Vaccine 00:00:00 [facility] Influenza Virus 2011-05-18 Completed [facility] Vaccine 00:00:00 [facility] Influenza Virus 2011-05-18 Completed [facility] Vaccine 00:00:00 [facility] Influenza Virus 2011-05-18 Completed [facility] Vaccine 00:00:00 [facility] Influenza Virus 2011-05-18 Completed [facility] Vaccine 00:00:00 [facility] Influenza Virus 2011-05-18 Completed [facility] Vaccine 00:00:00 [facility] Influenza Virus 2011-05-18 Completed [facility] Vaccine 00:00:00 [facility] Influenza Virus 2011-05-18 Completed [facility] Vaccine 00:00:00 [facility] Influenza Virus 2011-05-18 Completed [facility] Vaccine 00:00:00 [facility] Influenza Virus 2011-05-18 Completed [facility] Vaccine 00:00:00 [facility] Influenza Virus 2011-05-18 Completed [facility] Vaccine 00:00:00 [facility] Influenza Virus 2011-05-18 Completed [facility] Vaccine 00:00:00 [facility] Influenza Virus 2011-05-18 Completed [facility] Vaccine 00:00:00 [facility] Influenza Virus 2011-05-18 Completed [facility] Vaccine 00:00:00 [facility] Influenza Virus 2011-05-18 Completed [facility] Vaccine 00:00:00 [facility] Influenza Virus 2011-05-18 Completed [facility] Vaccine 00:00:00 [facility] Influenza Virus 2011-05-18 Completed [facility] Vaccine 00:00:00 [facility] Influenza Virus 2011-05-18 Completed [facility] Vaccine 00:00:00 [facility] Influenza Virus 2011-05-18 Completed [facility] Vaccine 00:00:00 [facility] Influenza Virus 2011-05-18 Completed [facility] Vaccine 00:00:00 [facility] Influenza Virus 2011-05-18 Completed [facility] Vaccine 00:00:00 [facility] Influenza Virus 2011-05-18 Completed [facility] Vaccine 00:00:00 [facility] Influenza Virus 2011-05-18 Completed [facility] Vaccine 00:00:00 [facility] Influenza Virus 2011-05-18 Completed [facility] Vaccine 00:00:00 [facility] Influenza Virus 2011-05-18 Completed [facility] Vaccine 00:00:00 [facility] Influenza Virus 2011-05-18 Completed [facility] Vaccine 00:00:00 [facility] Influenza Virus 2011-05-18 Completed [facility] Vaccine 00:00:00 [facility] Influenza Virus 2011-05-18 Completed [facility] Vaccine 00:00:00 [facility] Influenza Virus 2011-05-18 Completed [facility] Vaccine 00:00:00 [facility] Influenza Virus 2011-05-18 Completed [facility] Vaccine 00:00:00 [facility] Influenza Virus 2011-05-18 Completed [facility] Vaccine 00:00:00 [facility] Influenza Virus 2011-05-18 Completed [facility] Vaccine 00:00:00 [facility] Influenza Virus 2011-05-18 Completed [facility] Vaccine 00:00:00 [facility] Influenza Virus 2010-05-26 Completed [facility] Vaccine 00:00:00 [facility] Influenza Virus 2010-05-26 Completed [facility] Vaccine 00:00:00 [facility] Influenza Virus 2010-05-26 Completed [facility] Vaccine 00:00:00 [facility] Influenza Virus 2010-05-26 Completed [facility] Vaccine 00:00:00 [facility] Influenza Virus 2010-05-26 Completed [facility] Vaccine 00:00:00 [facility] Influenza Virus 2010-05-26 Completed [facility] Vaccine 00:00:00 [facility] Influenza Virus 2010-05-26 Completed [facility] Vaccine 00:00:00 [facility] Influenza Virus 2010-05-26 Completed [facility] Vaccine 00:00:00 [facility] Influenza Virus 2010-05-26 Completed [facility] Vaccine 00:00:00 [facility] Influenza Virus 2010-05-26 Completed [facility] Vaccine 00:00:00 [facility] Influenza Virus 2010-05-26 Completed [facility] Vaccine 00:00:00 [facility] Influenza Virus 2010-05-26 Completed [facility] Vaccine 00:00:00 [facility] Influenza Virus 2010-05-26 Completed [facility] Vaccine 00:00:00 [facility] Influenza Virus 2010-05-26 Completed [facility] Vaccine 00:00:00 [facility] Influenza Virus 2010-05-26 Completed [facility] Vaccine 00:00:00 [facility] Influenza Virus 2010-05-26 Completed [facility] Vaccine 00:00:00 [facility] Influenza Virus 2010-05-26 Completed [facility] Vaccine 00:00:00 [facility] Influenza Virus 2010-05-26 Completed [facility] Vaccine 00:00:00 [facility] Influenza Virus 2010-05-26 Completed [facility] Vaccine 00:00:00 [facility] Influenza Virus 2010-05-26 Completed [facility] Vaccine 00:00:00 [facility] Influenza Virus 2010-05-26 Completed [facility] Vaccine 00:00:00 [facility] Influenza Virus 2010-05-26 Completed [facility] Vaccine 00:00:00 [facility] Influenza Virus 2010-05-26 Completed [facility] Vaccine 00:00:00 [facility] Influenza Virus 2010-05-26 Completed [facility] Vaccine 00:00:00 [facility] Influenza Virus 2010-05-26 Completed [facility] Vaccine 00:00:00 [facility] Influenza Virus 2010-05-26 Completed [facility] Vaccine 00:00:00 [facility] Influenza Virus 2010-05-26 Completed [facility] Vaccine 00:00:00 [facility] Influenza Virus 2010-05-26 Completed [facility] Vaccine 00:00:00 [facility] Influenza Virus 2010-05-26 Completed [facility] Vaccine 00:00:00 [facility] Influenza Virus 2010-05-26 Completed [facility] Vaccine 00:00:00 [facility] Influenza Virus 2010-05-26 Completed [facility] Vaccine 00:00:00 [facility] Influenza Virus 2010-05-26 Completed [facility] Vaccine 00:00:00 [facility] Influenza Virus 2010-05-26 Completed [facility] Vaccine 00:00:00 [facility] Influenza Virus 2010-05-26 Completed [facility] Vaccine 00:00:00 [facility] Influenza Virus 2010-05-26 Completed [facility] Vaccine 00:00:00 [facility] Influenza Virus 2010-05-26 Completed [facility] Vaccine 00:00:00 [facility] Influenza Virus 2010-05-26 Completed [facility] Vaccine 00:00:00 [facility] Influenza Virus 2010-05-26 Completed [facility] Vaccine 00:00:00 [facility] Influenza Virus 2010-05-26 Completed [facility] Vaccine 00:00:00 [facility] Influenza Virus 2010-05-26 Completed [facility] Vaccine 00:00:00 [facility] Influenza Virus 2010-05-26 Completed [facility] Vaccine 00:00:00 [facility] Influenza Virus 2010-05-26 Completed [facility] Vaccine 00:00:00 [facility] Influenza Virus 2010-05-26 Completed [facility] Vaccine 00:00:00 [facility] Influenza Virus 2010-05-26 Completed [facility] Vaccine 00:00:00 [facility] Influenza Virus 2010-05-26 Completed [facility] Vaccine 00:00:00 [facility] Influenza Virus 2010-05-26 Completed [facility] Vaccine 00:00:00 [facility] Influenza Virus 2010-05-26 Completed [facility] Vaccine 00:00:00 [facility] Influenza Virus 2010-05-26 Completed [facility] Vaccine 00:00:00 [facility] Influenza Virus 2010-05-26 Completed [facility] Vaccine 00:00:00 [facility] Influenza Virus 2010-05-26 Completed [facility] Vaccine 00:00:00 [facility] Influenza Virus 2010-05-26 Completed [facility] Vaccine 00:00:00 [facility] Influenza Virus 2010-05-26 Completed [facility] Vaccine 00:00:00 [facility] Influenza Virus 2010-05-26 Completed [facility] Vaccine 00:00:00 [facility] Influenza Virus 2010-05-26 Completed [facility] Vaccine 00:00:00 [facility] Influenza Virus 2010-05-26 Completed [facility] Vaccine 00:00:00 [facility] Influenza Virus 2010-05-26 Completed [facility] Vaccine 00:00:00 [facility] Influenza Virus 2010-05-26 Completed [facility] Vaccine 00:00:00 [facility] Influenza Virus 2009-06-23 Completed [facility] Vaccine 00:00:00 [facility] Influenza Virus 2009-06-23 Completed [facility] Vaccine 00:00:00 [facility] Influenza Virus 2009-06-23 Completed [facility] Vaccine 00:00:00 [facility] Influenza Virus 2009-06-23 Completed [facility] Vaccine 00:00:00 [facility] Influenza Virus 2009-06-23 Completed [facility] Vaccine 00:00:00 [facility] Influenza Virus 2009-06-23 Completed [facility] Vaccine 00:00:00 [facility] Influenza Virus 2009-06-23 Completed [facility] Vaccine 00:00:00 [facility] Influenza Virus 2009-06-23 Completed [facility] Vaccine 00:00:00 [facility] Influenza Virus 2009-06-23 Completed [facility] Vaccine 00:00:00 [facility] Influenza Virus 2009-06-23 Completed [facility] Vaccine 00:00:00 [facility] Influenza Virus 2009-06-23 Completed [facility] Vaccine 00:00:00 [facility] Influenza Virus 2009-06-23 Completed [facility] Vaccine 00:00:00 [facility] Influenza Virus 2009-06-23 Completed [facility] Vaccine 00:00:00 [facility] Influenza Virus 2009-06-23 Completed [facility] Vaccine 00:00:00 [facility] Influenza Virus 2009-06-23 Completed [facility] Vaccine 00:00:00 [facility] Influenza Virus 2009-06-23 Completed [facility] Vaccine 00:00:00 [facility] Influenza Virus 2009-06-23 Completed [facility] Vaccine 00:00:00 [facility] Influenza Virus 2009-06-23 Completed [facility] Vaccine 00:00:00 [facility] Influenza Virus 2009-06-23 Completed [facility] Vaccine 00:00:00 [facility] Influenza Virus 2009-06-23 Completed [facility] Vaccine 00:00:00 [facility] Influenza Virus 2009-06-23 Completed [facility] Vaccine 00:00:00 [facility] Influenza Virus 2009-06-23 Completed [facility] Vaccine 00:00:00 [facility] Influenza Virus 2009-06-23 Completed [facility] Vaccine 00:00:00 [facility] Influenza Virus 2009-06-23 Completed [facility] Vaccine 00:00:00 [facility] Influenza Virus 2009-06-23 Completed [facility] Vaccine 00:00:00 [facility] Influenza Virus 2009-06-23 Completed [facility] Vaccine 00:00:00 [facility] Influenza Virus 2009-06-23 Completed [facility] Vaccine 00:00:00 [facility] Influenza Virus 2009-06-23 Completed [facility] Vaccine 00:00:00 [facility] Influenza Virus 2009-06-23 Completed [facility] Vaccine 00:00:00 [facility] Influenza Virus 2009-06-23 Completed [facility] Vaccine 00:00:00 [facility] Influenza Virus 2009-06-23 Completed [facility] Vaccine 00:00:00 [facility] Influenza Virus 2009-06-23 Completed [facility] Vaccine 00:00:00 [facility] Influenza Virus 2009-06-23 Completed [facility] Vaccine 00:00:00 [facility] Influenza Virus 2009-06-23 Completed [facility] Vaccine 00:00:00 [facility] Influenza Virus 2009-06-23 Completed [facility] Vaccine 00:00:00 [facility] Influenza Virus 2009-06-23 Completed [facility] Vaccine 00:00:00 [facility] Influenza Virus 2009-06-23 Completed [facility] Vaccine 00:00:00 [facility] Influenza Virus 2009-06-23 Completed [facility] Vaccine 00:00:00 [facility] Influenza Virus 2009-06-23 Completed [facility] Vaccine 00:00:00 [facility] Influenza Virus 2009-06-23 Completed [facility] Vaccine 00:00:00 [facility] Influenza Virus 2009-06-23 Completed [facility] Vaccine 00:00:00 [facility] Influenza Virus 2009-06-23 Completed [facility] Vaccine 00:00:00 [facility] Influenza Virus 2009-06-23 Completed [facility] Vaccine 00:00:00 [facility] Influenza Virus 2009-06-23 Completed [facility] Vaccine 00:00:00 [facility] Influenza Virus 2009-06-23 Completed [facility] Vaccine 00:00:00 [facility] Influenza Virus 2009-06-23 Completed [facility] Vaccine 00:00:00 [facility] Influenza Virus 2009-06-23 Completed [facility] Vaccine 00:00:00 [facility] Influenza Virus 2009-06-23 Completed [facility] Vaccine 00:00:00 [facility] Influenza Virus 2009-06-23 Completed [facility] Vaccine 00:00:00 [facility] Influenza Virus 2009-06-23 Completed [facility] Vaccine 00:00:00 [facility] Influenza Virus 2009-06-23 Completed [facility] Vaccine 00:00:00 [facility] Influenza Virus 2009-06-23 Completed [facility] Vaccine 00:00:00 [facility] Influenza Virus 2009-06-23 Completed [facility] Vaccine 00:00:00 [facility] Influenza Virus 2009-06-23 Completed [facility] Vaccine 00:00:00 [facility] Influenza Virus 2009-06-23 Completed [facility] Vaccine 00:00:00 [facility] Influenza Virus 2009-06-23 Completed [facility] Vaccine 00:00:00 [facility] Influenza Virus 2009-06-23 Completed [facility] Vaccine 00:00:00 [facility] Influenza Virus 2009-05-20 Completed [facility] Vaccine 00:00:00 [facility] Influenza Virus 2009-05-20 Completed [facility] Vaccine 00:00:00 [facility] Influenza Virus 2009-05-20 Completed [facility] Vaccine 00:00:00 [facility] Influenza Virus 2009-05-20 Completed [facility] Vaccine 00:00:00 [facility] Influenza Virus 2009-05-20 Completed [facility] Vaccine 00:00:00 [facility] Influenza Virus 2009-05-20 Completed [facility] Vaccine 00:00:00 [facility] Influenza Virus 2009-05-20 Completed [facility] Vaccine 00:00:00 [facility] Influenza Virus 2009-05-20 Completed [facility] Vaccine 00:00:00 [facility] Influenza Virus 2009-05-20 Completed [facility] Vaccine 00:00:00 [facility] Influenza Virus 2009-05-20 Completed [facility] Vaccine 00:00:00 [facility] Influenza Virus 2009-05-20 Completed [facility] Vaccine 00:00:00 [facility] Influenza Virus 2009-05-20 Completed [facility] Vaccine 00:00:00 [facility] Influenza Virus 2009-05-20 Completed [facility] Vaccine 00:00:00 [facility] Influenza Virus 2009-05-20 Completed [facility] Vaccine 00:00:00 [facility] Influenza Virus 2009-05-20 Completed [facility] Vaccine 00:00:00 [facility] Influenza Virus 2009-05-20 Completed [facility] Vaccine 00:00:00 [facility] Influenza Virus 2009-05-20 Completed [facility] Vaccine 00:00:00 [facility] Influenza Virus 2009-05-20 Completed [facility] Vaccine 00:00:00 [facility] Influenza Virus 2009-05-20 Completed [facility] Vaccine 00:00:00 [facility] Influenza Virus 2009-05-20 Completed [facility] Vaccine 00:00:00 [facility] Influenza Virus 2009-05-20 Completed [facility] Vaccine 00:00:00 [facility] Influenza Virus 2009-05-20 Completed [facility] Vaccine 00:00:00 [facility] Influenza Virus 2009-05-20 Completed [facility] Vaccine 00:00:00 [facility] Influenza Virus 2009-05-20 Completed [facility] Vaccine 00:00:00 [facility] Influenza Virus 2009-05-20 Completed [facility] Vaccine 00:00:00 [facility] Influenza Virus 2009-05-20 Completed [facility] Vaccine 00:00:00 [facility] Influenza Virus 2009-05-20 Completed [facility] Vaccine 00:00:00 [facility] Influenza Virus 2009-05-20 Completed [facility] Vaccine 00:00:00 [facility] Influenza Virus 2009-05-20 Completed [facility] Vaccine 00:00:00 [facility] Influenza Virus 2009-05-20 Completed [facility] Vaccine 00:00:00 [facility] Influenza Virus 2009-05-20 Completed [facility] Vaccine 00:00:00 [facility] Influenza Virus 2009-05-20 Completed [facility] Vaccine 00:00:00 [facility] Influenza Virus 2009-05-20 Completed [facility] Vaccine 00:00:00 [facility] Influenza Virus 2009-05-20 Completed [facility] Vaccine 00:00:00 [facility] Influenza Virus 2009-05-20 Completed [facility] Vaccine 00:00:00 [facility] Influenza Virus 2009-05-20 Completed [facility] Vaccine 00:00:00 [facility] Influenza Virus 2009-05-20 Completed [facility] Vaccine 00:00:00 [facility] Influenza Virus 2009-05-20 Completed [facility] Vaccine 00:00:00 [facility] Influenza Virus 2009-05-20 Completed [facility] Vaccine 00:00:00 [facility] Influenza Virus 2009-05-20 Completed [facility] Vaccine 00:00:00 [facility] Influenza Virus 2009-05-20 Completed [facility] Vaccine 00:00:00 [facility] Influenza Virus 2009-05-20 Completed [facility] Vaccine 00:00:00 [facility] Influenza Virus 2009-05-20 Completed [facility] Vaccine 00:00:00 [facility] Influenza Virus 2009-05-20 Completed [facility] Vaccine 00:00:00 [facility] Influenza Virus 2009-05-20 Completed [facility] Vaccine 00:00:00 [facility] Influenza Virus 2009-05-20 Completed [facility] Vaccine 00:00:00 [facility] Influenza Virus 2009-05-20 Completed [facility] Vaccine 00:00:00 [facility] Influenza Virus 2009-05-20 Completed [facility] Vaccine 00:00:00 [facility] Influenza Virus 2009-05-20 Completed [facility] Vaccine 00:00:00 [facility] Influenza Virus 2009-05-20 Completed [facility] Vaccine 00:00:00 [facility] Influenza Virus 2009-05-20 Completed [facility] Vaccine 00:00:00 [facility] Influenza Virus 2009-05-20 Completed [facility] Vaccine 00:00:00 [facility] Influenza Virus 2009-05-20 Completed [facility] Vaccine 00:00:00 [facility] Influenza Virus 2009-05-20 Completed [facility] Vaccine 00:00:00 [facility] Influenza Virus 2009-05-20 Completed [facility] Vaccine 00:00:00 [facility] Influenza Virus 2009-05-20 Completed [facility] Vaccine 00:00:00 [facility] Influenza Virus 2009-05-20 Completed [facility] Vaccine 00:00:00 [facility] Influenza Virus 2007-06-01 Completed [facility] Vaccine 00:00:00 [facility] Influenza Virus 2007-06-01 Completed [facility] Vaccine 00:00:00 [facility] Influenza Virus 2007-06-01 Completed [facility] Vaccine 00:00:00 [facility] Influenza Virus 2007-06-01 Completed [facility] Vaccine 00:00:00 [facility] Influenza Virus 2007-06-01 Completed [facility] Vaccine 00:00:00 [facility] Influenza Virus 2007-06-01 Completed [facility] Vaccine 00:00:00 [facility] Influenza Virus 2007-06-01 Completed [facility] Vaccine 00:00:00 [facility] Influenza Virus 2007-06-01 Completed [facility] Vaccine 00:00:00 [facility] Influenza Virus 2007-06-01 Completed [facility] Vaccine 00:00:00 [facility] Influenza Virus 2007-06-01 Completed [facility] Vaccine 00:00:00 [facility] Influenza Virus 2007-06-01 Completed [facility] Vaccine 00:00:00 [facility] Influenza Virus 2007-06-01 Completed [facility] Vaccine 00:00:00 [facility] Influenza Virus 2007-06-01 Completed [facility] Vaccine 00:00:00 [facility] Influenza Virus 2007-06-01 Completed [facility] Vaccine 00:00:00 [facility] Influenza Virus 2007-06-01 Completed [facility] Vaccine 00:00:00 [facility] Influenza Virus 2007-06-01 Completed [facility] Vaccine 00:00:00 [facility] Influenza Virus 2007-06-01 Completed [facility] Vaccine 00:00:00 [facility] Influenza Virus 2007-06-01 Completed [facility] Vaccine 00:00:00 [facility] Influenza Virus 2007-06-01 Completed [facility] Vaccine 00:00:00 [facility] Influenza Virus 2007-06-01 Completed [facility] Vaccine 00:00:00 [facility] Influenza Virus 2007-06-01 Completed [facility] Vaccine 00:00:00 [facility] Influenza Virus 2007-06-01 Completed [facility] Vaccine 00:00:00 [facility] Influenza Virus 2007-06-01 Completed [facility] Vaccine 00:00:00 [facility] Influenza Virus 2007-06-01 Completed [facility] Vaccine 00:00:00 [facility] Influenza Virus 2007-06-01 Completed [facility] Vaccine 00:00:00 [facility] Influenza Virus 2007-06-01 Completed [facility] Vaccine 00:00:00 [facility] Influenza Virus 2007-06-01 Completed [facility] Vaccine 00:00:00 [facility] Influenza Virus 2007-06-01 Completed [facility] Vaccine 00:00:00 [facility] Influenza Virus 2007-06-01 Completed [facility] Vaccine 00:00:00 [facility] Influenza Virus 2007-06-01 Completed [facility] Vaccine 00:00:00 [facility] Influenza Virus 2007-06-01 Completed [facility] Vaccine 00:00:00 [facility] Influenza Virus 2007-06-01 Completed [facility] Vaccine 00:00:00 [facility] Influenza Virus 2007-06-01 Completed [facility] Vaccine 00:00:00 [facility] Influenza Virus 2007-06-01 Completed [facility] Vaccine 00:00:00 [facility] Influenza Virus 2007-06-01 Completed [facility] Vaccine 00:00:00 [facility] Influenza Virus 2007-06-01 Completed [facility] Vaccine 00:00:00 [facility] Influenza Virus 2007-06-01 Completed [facility] Vaccine 00:00:00 [facility] Influenza Virus 2007-06-01 Completed [facility] Vaccine 00:00:00 [facility] Influenza Virus 2007-06-01 Completed [facility] Vaccine 00:00:00 [facility] Influenza Virus 2007-06-01 Completed [facility] Vaccine 00:00:00 [facility] Influenza Virus 2007-06-01 Completed [facility] Vaccine 00:00:00 [facility] Influenza Virus 2007-06-01 Completed [facility] Vaccine 00:00:00 [facility] Influenza Virus 2007-06-01 Completed [facility] Vaccine 00:00:00 [facility] Influenza Virus 2007-06-01 Completed [facility] Vaccine 00:00:00 [facility] Influenza Virus 2007-06-01 Completed [facility] Vaccine 00:00:00 [facility] Influenza Virus 2007-06-01 Completed [facility] Vaccine 00:00:00 [facility] Influenza Virus 2007-06-01 Completed [facility] Vaccine 00:00:00 [facility] Influenza Virus 2007-06-01 Completed [facility] Vaccine 00:00:00 [facility] Influenza Virus 2007-06-01 Completed [facility] Vaccine 00:00:00 [facility] Influenza Virus 2007-06-01 Completed [facility] Vaccine 00:00:00 [facility] Influenza Virus 2007-06-01 Completed [facility] Vaccine 00:00:00 [facility] Influenza Virus 2007-06-01 Completed [facility] Vaccine 00:00:00 [facility] Influenza Virus 2007-06-01 Completed [facility] Vaccine 00:00:00 [facility] Influenza Virus 2007-06-01 Completed [facility] Vaccine 00:00:00 [facility] Influenza Virus 2007-06-01 Completed [facility] Vaccine 00:00:00 [facility] Influenza Virus 2007-06-01 Completed [facility] Vaccine 00:00:00 [facility] Influenza Virus 2007-06-01 Completed [facility] Vaccine 00:00:00 [facility] DTAP 2006-05-24 Completed [facility] 00:00:00 [facility] Proquad 2006-05-24 Completed [facility] (MMR/VARICELLA) 00:00:00 [facility] Polio (IPV/OPV) 2006-05-24 Completed [facility] 00:00:00 [facility] DTAP 2006-05-24 Completed [facility] 00:00:00 [facility] Proquad 2006-05-24 Completed [facility] (MMR/VARICELLA) 00:00:00 [facility] Polio (IPV/OPV) 2006-05-24 Completed [facility] 00:00:00 [facility] DTAP 2006-05-24 Completed [facility] 00:00:00 [facility] Proquad 2006-05-24 Completed [facility] (MMR/VARICELLA) 00:00:00 [facility] Polio (IPV/OPV) 2006-05-24 Completed [facility] 00:00:00 [facility] DTAP 2006-05-24 Completed [facility] 00:00:00 [facility] Proquad 2006-05-24 Completed [facility] (MMR/VARICELLA) 00:00:00 [facility] Polio (IPV/OPV) 2006-05-24 Completed [facility] 00:00:00 [facility] DTAP 2006-05-24 Completed [facility] 00:00:00 [facility] Proquad 2006-05-24 Completed [facility] (MMR/VARICELLA) 00:00:00 [facility] Polio (IPV/OPV) 2006-05-24 Completed [facility] 00:00:00 [facility] DTAP 2006-05-24 Completed [facility] 00:00:00 [facility] Proquad 2006-05-24 Completed [facility] (MMR/VARICELLA) 00:00:00 [facility] Polio (IPV/OPV) 2006-05-24 Completed [facility] 00:00:00 [facility] DTAP 2006-05-24 Completed [facility] 00:00:00 [facility] Proquad 2006-05-24 Completed [facility] (MMR/VARICELLA) 00:00:00 [facility] Polio (IPV/OPV) 2006-05-24 Completed [facility] 00:00:00 [facility] DTAP 2006-05-24 Completed [facility] 00:00:00 [facility] Proquad 2006-05-24 Completed [facility] (MMR/VARICELLA) 00[facility]00:00 [facility] Polio (IPV/OPV) 2006-05-24 Completed [facility] 00:00:00 [facility] DTAP 2006-05-24 Completed [facility] 00:00:00 [facility] Proquad 2006-05-24 Completed [facility] (MMR/VARICELLA) 00:00:00 [facility] Polio (IPV/OPV) 2006-05-24 Completed [facility] 00:00:00 [facility] DTAP 2006-05-24 Completed [facility] 00:00:00 [facility] Proquad 2006-05-24 Completed [facility] (MMR/VARICELLA) 00:00:00 [facility] Polio (IPV/OPV) 2006-05-24 Completed [facility] 00:00:00 [facility] DTAP 2006-05-24 Completed [facility] 00:00:00 [facility] Proquad 2006-05-24 Completed [facility] (MMR/VARICELLA) 00:00:00 [facility] Polio (IPV/OPV) 2006-05-24 Completed [facility] 00:00:00 [facility] DTAP 2006-05-24 Completed [facility] 00:00:00 [facility] Proquad 2006-05-24 Completed [facility] (MMR/VARICELLA) 00:00:00 [facility] Polio (IPV/OPV) 2006-05-24 Completed [facility] 00:00:00 [facility] DTAP 2006-05-24 Completed [facility] 00:00:00 [facility] Proquad 2006-05-24 Completed [facility] (MMR/VARICELLA) 00:00:00 [facility] Polio (IPV/OPV) 2006-05-24 Completed [facility] 00:00:00 [facility] DTAP 2006-05-24 Completed [facility] 00:00:00 [facility] Proquad 2006-05-24 Completed [facility] (MMR/VARICELLA) 00:00:00 [facility] Polio (IPV/OPV) 2006-05-24 Completed [facility] 00:00:00 [facility] DTAP 2006-05-24 Completed [facility] 00:00:00 [facility] Proquad 2006-05-24 Completed [facility] (MMR/VARICELLA) 00:00:00 [facility] Polio (IPV/OPV) 2006-05-24 Completed [facility] of 00:00:00 [facility] DTAP 2006-05-24 Completed [facility] 00:00:00 [facility] Proquad 2006-05-24 Completed University of (MMR/VARICELLA) 00:00:00 [facility] Polio (IPV/OPV) 2006-05-24 Completed [facility] 00:00:00 [facility] DTAP 2006-05-24 Completed [facility] 00:00:00 [facility] Proquad 2006-05-24 Completed [facility] of (MMR/VARICELLA) 00:00:00 [facility] Polio (IPV/OPV) 2006-05-24 Completed [facility] 00:00:00 [facility] DTAP 2006-05-24 Completed [facility] of 00:00:00 [facility] Proquad 2006-05-24 Completed [facility] of (MMR/VARICELLA) 00:00:00 [facility] Polio (IPV/OPV) 2006-05-24 Completed [facility] 00:00:00 [facility] DTAP 2006-05-24 Completed [facility] of 00:00:00 [facility] Proquad 2006-05-24 Completed [facility] of (MMR/VARICELLA) 00:00:00 [facility] Polio (IPV/OPV) 2006-05-24 Completed [facility] 00:00:00 [facility] DTAP 2006-05-24 Completed [facility] of 00:00:00 [facility] Proquad 2006-05-24 Completed [facility] of (MMR/VARICELLA) 00:00:00 [facility] Polio (IPV/OPV) 2006-05-24 Completed [facility] 00:00:00 [facility] DTAP 2006-05-24 Completed [facility] 00:00:00 [facility] Proquad 2006-05-24 Completed [facility] of (MMR/VARICELLA) 00:00:00 [facility] Polio (IPV/OPV) 2006-05-24 Completed [facility] 00:00:00 [facility] DTAP 2006-05-24 Completed [facility] of 00:00:00 [facility] Proquad 2006-05-24 Completed [facility] of (MMR/VARICELLA) 00:00:00 [facility] Polio (IPV/OPV) 2006-05-24 Completed [facility] 00:00:00 [facility] DTAP 2006-05-24 Completed [facility] of 00:00:00 [facility] Proquad 2006-05-24 Completed [facility] of (MMR/VARICELLA) 00:00:00 [facility] Polio (IPV/OPV) 2006-05-24 Completed [facility] 00:00:00 [facility] DTAP 2006-05-24 Completed [facility] of 00:00:00 [facility] Proquad 2006-05-24 Completed [facility] of (MMR/VARICELLA) 00:00:00 [facility] Polio (IPV/OPV) 2006-05-24 Completed [facility] 00:00:00 [facility] DTAP 2006-05-24 Completed [facility] of 00:00:00 [facility] Proquad 2006-05-24 Completed [facility] of (MMR/VARICELLA) 00:00:00 [facility] Polio (IPV/OPV) 2006-05-24 Completed [facility] 00:00:00 [facility] DTAP 2006-05-24 Completed [facility] of 00:00:00 [facility] Proquad 2006-05-24 Completed [facility] of (MMR/VARICELLA) 00:00:00 [facility] Polio (IPV/OPV) 2006-05-24 Completed [facility] 00:00:00 [facility] DTAP 2006-05-24 Completed [facility] of 00:00:00 [facility] Proquad 2006-05-24 Completed [facility] of (MMR/VARICELLA) 00:00:00 [facility] Polio (IPV/OPV) 2006-05-24 Completed [facility] 00:00:00 [facility] DTAP 2006-05-24 Completed [facility] of 00:00:00 [facility] Proquad 2006-05-24 Completed [facility] of (MMR/VARICELLA) 00:00:00 [facility] Polio (IPV/OPV) 2006-05-24 Completed [facility] 00:00:00 [facility] DTAP 2006-05-24 Completed [facility] of 00:00:00 [facility] Proquad 2006-05-24 Completed [facility] of (MMR/VARICELLA) 00:00:00 [facility] Polio (IPV/OPV) 2006-05-24 Completed [facility] 00:00:00 [facility] DTAP 2006-05-24 Completed [facility] of 00:00:00 [facility] Proquad 2006-05-24 Completed [facility] of (MMR/VARICELLA) 00:00:00 [facility] Polio (IPV/OPV) 2006-05-24 Completed [facility] 00:00:00 [facility] DTAP 2006-05-24 Completed [facility] of 00:00:00 [facility] Proquad 2006-05-24 Completed [facility] of (MMR/VARICELLA) 00:00:00 [facility] Polio (IPV/OPV) 2006-05-24 Completed [facility] 00:00:00 [facility] DTAP 2006-05-24 Completed [facility] of 00:00:00 [facility] Proquad 2006-05-24 Completed [facility] of (MMR/VARICELLA) 00:00:00 [facility] Polio (IPV/OPV) 2006-05-24 Completed [facility] 00:00:00 [facility] DTAP 2006-05-24 Completed [facility] of 00:00:00 [facility] Proquad 2006-05-24 Completed [facility] of (MMR/VARICELLA) 00:00:00 [facility] Polio (IPV/OPV) 2006-05-24 Completed [facility] 00:00:00 [facility] DTAP 2006-05-24 Completed [facility] of 00:00:00 [facility] Proquad 2006-05-24 Completed [facility] of (MMR/VARICELLA) 00:00:00 [facility] Polio (IPV/OPV) 2006-05-24 Completed [facility] 00:00:00 [facility] DTAP 2006-05-24 Completed [facility] of 00:00:00 [facility] Proquad 2006-05-24 Completed [facility] of (MMR/VARICELLA) 00:00:00 [facility] Polio (IPV/OPV) 2006-05-24 Completed [facility] of 00:00:00 [facility] DTAP 2006-05-24 Completed [facility] of 00:00:00 [facility] Proquad 2006-05-24 Completed [facility] of (MMR/VARICELLA) 00:00:00 [facility] Polio (IPV/OPV) 2006-05-24 Completed [facility] 00:00:00 [facility] DTAP 2006-05-24 Completed [facility] of 00:00:00 [facility] Proquad 2006-05-24 Completed [facility] of (MMR/VARICELLA) 00:00:00 [facility] Polio (IPV/OPV) 2006-05-24 Completed [facility] 00:00:00 [facility] DTAP 2006-05-24 Completed [facility] of 00:00:00 [facility] Proquad 2006-05-24 Completed [facility] of (MMR/VARICELLA) 00:00:00 [facility] Polio (IPV/OPV) 2006-05-24 Completed [facility] 00:00:00 [facility] DTAP 2006-05-24 Completed [facility] of 00:00:00 [facility] Proquad 2006-05-24 Completed [facility] of (MMR/VARICELLA) 00:00:00 [facility] Polio (IPV/OPV) 2006-05-24 Completed [facility] 00:00:00 [facility] DTAP 2006-05-24 Completed [facility] of 00:00:00 [facility] Proquad 2006-05-24 Completed [facility] of (MMR/VARICELLA) 00:00:00 [facility] Polio (IPV/OPV) 2006-05-24 Completed [facility] 00:00:00 [facility] DTAP 2006-05-24 Completed [facility] of 00:00:00 [facility] Proquad 2006-05-24 Completed [facility] of (MMR/VARICELLA) 00:00:00 [facility] Polio (IPV/OPV) 2006-05-24 Completed [facility] 00:00:00 [facility] DTAP 2006-05-24 Completed [facility] of 00:00:00 [facility] Proquad 2006-05-24 Completed [facility] of (MMR/VARICELLA) 00:00:00 [facility] Polio (IPV/OPV) 2006-05-24 Completed [facility] 00:00:00 [facility] DTAP 2006-05-24 Completed [facility] of 00:00:00 [facility] Proquad 2006-05-24 Completed [facility] of (MMR/VARICELLA) 00:00:00 [facility] Polio (IPV/OPV) 2006-05-24 Completed [facility] 00:00:00 [facility] DTAP 2006-05-24 Completed [facility] of 00:00:00 [facility] Proquad 2006-05-24 Completed [facility] of (MMR/VARICELLA) 00:00:00 [facility] Polio (IPV/OPV) 2006-05-24 Completed [facility] 00:00:00 [facility] DTAP 2006-05-24 Completed [facility] of 00:00:00 [facility] Proquad 2006-05-24 Completed [facility] of (MMR/VARICELLA) 00:00:00 [facility] Polio (IPV/OPV) 2006-05-24 Completed [facility] 00:00:00 [facility] DTAP 2006-05-24 Completed [facility] of 00:00:00 [facility] Proquad 2006-05-24 Completed [facility] of (MMR/VARICELLA) 00:00:00 [facility] Polio (IPV/OPV) 2006-05-24 Completed [facility] 00:00:00 [facility] DTAP 2006-05-24 Completed [facility] of 00:00:00 [facility] Proquad 2006-05-24 Completed [facility] (MMR/VARICELLA) 00:00:00 [facility] Polio (IPV/OPV) 2006-05-24 Completed [facility] 00:00:00 [facility] DTAP 2006-05-24 Completed [facility] of 00:00:00 [facility] Proquad 2006-05-24 Completed [facility] of (MMR/VARICELLA) 00:00:00 [facility] Polio (IPV/OPV) 2006-05-24 Completed [facility] 00:00:00 [facility] DTAP 2006-05-24 Completed [facility] of 00:00:00 [facility] Proquad 2006-05-24 Completed [facility] of (MMR/VARICELLA) 00:00:00 [facility] Polio (IPV/OPV) 2006-05-24 Completed [facility] 00:00:00 [facility] DTAP 2006-05-24 Completed [facility] of 00:00:00 [facility] Proquad 2006-05-24 Completed [facility] of (MMR/VARICELLA) 00:00:00 [facility] Polio (IPV/OPV) 2006-05-24 Completed [facility] 00:00:00 [facility] DTAP 2006-05-24 Completed [facility] of 00:00:00 [facility] Proquad 2006-05-24 Completed [facility] of (MMR/VARICELLA) 00:00:00 [facility] Polio (IPV/OPV) 2006-05-24 Completed [facility] 00:00:00 [facility] DTAP 2006-05-24 Completed [facility] 00:00:00 [facility] Proquad 2006-05-24 Completed [facility] of (MMR/VARICELLA) 00:00:00 [facility] Polio (IPV/OPV) 2006-05-24 Completed [facility] 00:00:00 [facility] DTAP 2006-05-24 Completed [facility] of 00:00:00 [facility] Proquad 2006-05-24 Completed [facility] of (MMR/VARICELLA) 00:00:00 [facility] Polio (IPV/OPV) 2006-05-24 Completed [facility] 00:00:00 [facility] DTAP 2006-05-24 Completed [facility] of 00:00:00 [facility] Proquad 2006-05-24 Completed [facility] of (MMR/VARICELLA) 00:00:00 [facility] Polio (IPV/OPV) 2006-05-24 Completed [facility] 00:00:00 [facility] DTAP 2006-05-24 Completed [facility] of 00:00:00 [facility] Proquad 2006-05-24 Completed [facility] of (MMR/VARICELLA) 00:00:00 [facility] Polio (IPV/OPV) 2006-05-24 Completed [facility] 00:00:00 [facility] DTAP 2006-05-24 Completed [facility] of 00:00:00 [facility] Proquad 2006-05-24 Completed [facility] of (MMR/VARICELLA) 00:00:00 [facility] Polio (IPV/OPV) 2006-05-24 Completed [facility] 00:00:00 [facility] DTAP 2006-05-24 Completed [facility] 00:00:00 [facility] Proquad 2006-05-24 Completed [facility] of (MMR/VARICELLA) 00:00:00 [facility] Polio (IPV/OPV) 2006-05-24 Completed [facility] 00:00:00 [facility] HEPATITIS A 2005-05-19 Completed [facility] of 00:00:00 [facility] Influenza Virus 2005-05-19 Completed [facility] of Vaccine 00:00:00 [facility] HEPATITIS A 2005-05-19 Completed [facility] of 00:00:00 [facility] Influenza Virus 2005-05-19 Completed [facility] Vaccine 00:00:00 [facility] HEPATITIS A 2005-05-19 Completed [facility] 00:00:00 [facility] Influenza Virus 2005-05-19 Completed [facility] Vaccine 00:00:00 [facility] HEPATITIS A 2005-05-19 Completed [facility] 00:00:00 [facility] Influenza Virus 2005-05-19 Completed [facility] Vaccine 00:00:00 [facility] HEPATITIS A 2005-05-19 Completed [facility] 00:00:00 [facility] Influenza Virus 2005-05-19 Completed [facility] Vaccine 00:00:00 [facility] HEPATITIS A 2005-05-19 Completed [facility] 00:00:00 [facility] Influenza Virus 2005-05-19 Completed [facility] Vaccine 00:00:00 [facility] HEPATITIS A 2005-05-19 Completed [facility] 00:00:00 [facility] Influenza Virus 2005-05-19 Completed [facility] Vaccine 00:00:00 [facility] HEPATITIS A 2005-05-19 Completed [facility] 00:00:00 [facility] Influenza Virus 2005-05-19 Completed [facility] Vaccine 00:00:00 [facility] HEPATITIS A 2005-05-19 Completed [facility] 00:00:00 [facility] Influenza Virus 2005-05-19 Completed [facility] Vaccine 00:00:00 [facility] HEPATITIS A 2005-05-19 Completed [facility] 00:00:00 [facility] Influenza Virus 2005-05-19 Completed [facility] Vaccine 00:00:00 [facility] HEPATITIS A 2005-05-19 Completed [facility] 00:00:00 [facility] Influenza Virus 2005-05-19 Completed [facility] Vaccine 00:00:00 [facility] HEPATITIS A 2005-05-19 Completed [facility] 00:00:00 [facility] Influenza Virus 2005-05-19 Completed [facility] Vaccine 00:00:00 [facility] HEPATITIS A 2005-05-19 Completed [facility] 00:00:00 [facility] Influenza Virus 2005-05-19 Completed [facility] Vaccine 00:00:00 [facility] HEPATITIS A 2005-05-19 Completed [facility] 00:00:00 [facility] Influenza Virus 2005-05-19 Completed [facility] Vaccine 00:00:00 [facility] HEPATITIS A 2005-05-19 Completed [facility] 00:00:00 [facility] Influenza Virus 2005-05-19 Completed [facility] Vaccine 00:00:00 [facility] HEPATITIS A 2005-05-19 Completed [facility] 00:00:00 [facility] Influenza Virus 2005-05-19 Completed [facility] Vaccine 00:00:00 [facility] HEPATITIS A 2005-05-19 Completed [facility] 00:00:00 [facility] Influenza Virus 2005-05-19 Completed [facility] Vaccine 00:00:00 [facility] HEPATITIS A 2005-05-19 Completed [facility] 00:00:00 [facility] Influenza Virus 2005-05-19 Completed [facility] Vaccine 00:00:00 [facility] HEPATITIS A 2005-05-19 Completed [facility] 00:00:00 [facility] Influenza Virus 2005-05-19 Completed [facility] Vaccine 00:00:00 [facility] HEPATITIS A 2005-05-19 Completed [facility] 00:00:00 [facility] Influenza Virus 2005-05-19 Completed [facility] Vaccine 00:00:00 [facility] HEPATITIS A 2005-05-19 Completed [facility] 00:00:00 [facility] Influenza Virus 2005-05-19 Completed [facility] Vaccine 00:00:00 [facility] HEPATITIS A 2005-05-19 Completed [facility] 00:00:00 [facility] Influenza Virus 2005-05-19 Completed [facility] Vaccine 00:00:00 [facility] HEPATITIS A 2005-05-19 Completed [facility] 00:00:00 [facility] Influenza Virus 2005-05-19 Completed [facility] Vaccine 00:00:00 [facility] HEPATITIS A 2005-05-19 Completed [facility] 00:00:00 [facility] Influenza Virus 2005-05-19 Completed [facility] Vaccine 00:00:00 [facility] HEPATITIS A 2005-05-19 Completed [facility] 00:00:00 [facility] Influenza Virus 2005-05-19 Completed [facility] Vaccine 00:00:00 [facility] HEPATITIS A 2005-05-19 Completed [facility] 00:00:00 [facility] Influenza Virus 2005-05-19 Completed [facility] Vaccine 00:00:00 [facility] HEPATITIS A 2005-05-19 Completed [facility] 00:00:00 [facility] Influenza Virus 2005-05-19 Completed [facility] Vaccine 00:00:00 [facility] HEPATITIS A 2005-05-19 Completed [facility] 00:00:00 [facility] Influenza Virus 2005-05-19 Completed [facility] Vaccine 00:00:00 [facility] HEPATITIS A 2005-05-19 Completed [facility] 00:00:00 [facility] Influenza Virus 2005-05-19 Completed [facility] Vaccine 00:00:00 [facility] HEPATITIS A 2005-05-19 Completed [facility] 00:00:00 [facility] Influenza Virus 2005-05-19 Completed [facility] Vaccine 00:00:00 [facility] HEPATITIS A 2005-05-19 Completed [facility] 00:00:00 [facility] Influenza Virus 2005-05-19 Completed [facility] Vaccine 00:00:00 [facility] HEPATITIS A 2005-05-19 Completed [facility] 00:00:00 [facility] Influenza Virus 2005-05-19 Completed [facility] Vaccine 00:00:00 [facility] HEPATITIS A 2005-05-19 Completed [facility] 00:00:00 [facility] Influenza Virus 2005-05-19 Completed [facility] Vaccine 00:00:00 [facility] HEPATITIS A 2005-05-19 Completed [facility] 00:00:00 [facility] Influenza Virus 2005-05-19 Completed [facility] Vaccine 00:00:00 [facility] HEPATITIS A 2005-05-19 Completed [facility] 00:00:00 [facility] Influenza Virus 2005-05-19 Completed [facility] Vaccine 00:00:00 [facility] HEPATITIS A 2005-05-19 Completed [facility] 00:00:00 [facility] Influenza Virus 2005-05-19 Completed [facility] Vaccine 00:00:00 [facility] HEPATITIS A 2005-05-19 Completed [facility] 00:00:00 [facility] Influenza Virus 2005-05-19 Completed [facility] Vaccine 00:00:00 [facility] HEPATITIS A 2005-05-19 Completed [facility] 00:00:00 [facility] Influenza Virus 2005-05-19 Completed [facility] Vaccine 00:00:00 [facility] HEPATITIS A 2005-05-19 Completed [facility] 00:00:00 [facility] Influenza Virus 2005-05-19 Completed [facility] Vaccine 00:00:00 [facility] HEPATITIS A 2005-05-19 Completed [facility] 00:00:00 [facility] Influenza Virus 2005-05-19 Completed [facility] Vaccine 00:00:00 [facility] HEPATITIS A 2005-05-19 Completed [facility] 00:00:00 [facility] Influenza Virus 2005-05-19 Completed [facility] Vaccine 00:00:00 [facility] HEPATITIS A 2005-05-19 Completed [facility] 00:00:00 [facility] Influenza Virus 2005-05-19 Completed [facility] Vaccine 00:00:00 [facility] HEPATITIS A 2005-05-19 Completed [facility] 00:00:00 [facility] Influenza Virus 2005-05-19 Completed [facility] Vaccine 00:00:00 [facility] HEPATITIS A 2005-05-19 Completed [facility] 00:00:00 [facility] Influenza Virus 2005-05-19 Completed [facility] Vaccine 00:00:00 [facility] HEPATITIS A 2005-05-19 Completed [facility] 00:00:00 [facility] Influenza Virus 2005-05-19 Completed [facility] Vaccine 00:00:00 [facility] HEPATITIS A 2005-05-19 Completed [facility] 00:00:00 [facility] Influenza Virus 2005-05-19 Completed [facility] Vaccine 00:00:00 [facility] HEPATITIS A 2005-05-19 Completed [facility] 00:00:00 [facility] Influenza Virus 2005-05-19 Completed [facility] Vaccine 00:00:00 [facility] HEPATITIS A 2005-05-19 Completed [facility] 00:00:00 [facility] Influenza Virus 2005-05-19 Completed [facility] Vaccine 00:00:00 [facility] HEPATITIS A 2005-05-19 Completed [facility] 00:00:00 [facility] Influenza Virus 2005-05-19 Completed [facility] Vaccine 00:00:00 [facility] HEPATITIS A 2005-05-19 Completed [facility] 00:00:00 [facility] Influenza Virus 2005-05-19 Completed [facility] Vaccine 00:00:00 [facility] HEPATITIS A 2005-05-19 Completed [facility] 00:00:00 [facility] Influenza Virus 2005-05-19 Completed [facility] Vaccine 00:00:00 [facility] HEPATITIS A 2005-05-19 Completed [facility] 00:00:00 [facility] Influenza Virus 2005-05-19 Completed [facility] Vaccine 00:00:00 [facility] HEPATITIS A 2005-05-19 Completed [facility] 00:00:00 [facility] Influenza Virus 2005-05-19 Completed [facility] Vaccine 00:00:00 [facility] HEPATITIS A 2005-05-19 Completed [facility] 00:00:00 [facility] Influenza Virus 2005-05-19 Completed [facility] Vaccine 00:00:00 [facility] HEPATITIS A 2005-05-19 Completed [facility] 00:00:00 [facility] Influenza Virus 2005-05-19 Completed [facility] Vaccine 00:00:00 [facility] HEPATITIS A 2005-05-19 Completed [facility] 00:00:00 [facility] Influenza Virus 2005-05-19 Completed [facility] Vaccine 00:00:00 [facility] HEPATITIS A 2005-05-19 Completed [facility] 00:00:00 [facility] Influenza Virus 2005-05-19 Completed [facility] Vaccine 00:00:00 [facility] HEPATITIS A 2004-05-17 Completed [facility] 00:00:00 [facility] HEPATITIS A 2004-05-17 Completed [facility] 00:00:00 [facility] HEPATITIS A 2004-05-17 Completed [facility] 00:00:00 [facility] HEPATITIS A 2004-05-17 Completed [facility] 00:00:00 [facility] HEPATITIS A 2004-05-17 Completed [facility] 00:00:00 [facility] HEPATITIS A 2004-05-17 Completed [facility] 00:00:00 [facility] HEPATITIS A 2004-05-17 Completed [facility] 00:00:00 [facility] HEPATITIS A 2004-05-17 Completed [facility] 00:00:00 [facility] HEPATITIS A 2004-05-17 Completed [facility] 00:00:00 [facility] HEPATITIS A 2004-05-17 Completed [facility] 00:00:00 [facility] HEPATITIS A 2004-05-17 Completed [facility] 00:00:00 [facility] HEPATITIS A 2004-05-17 Completed [facility] 00:00:00 [facility] HEPATITIS A 2004-05-17 Completed [facility] 00:00:00 [facility] HEPATITIS A 2004-05-17 Completed [facility] 00:00:00 [facility] HEPATITIS A 2004-05-17 Completed [facility] 00:00:00 [facility] HEPATITIS A 2004-05-17 Completed [facility] 00:00:00 [facility] HEPATITIS A 2004-05-17 Completed [facility] 00:00:00 [facility] HEPATITIS A 2004-05-17 Completed [facility] 00:00:00 [facility] HEPATITIS A 2004-05-17 Completed [facility] 00:00:00 [facility] HEPATITIS A 2004-05-17 Completed [facility] 00:00:00 [facility] HEPATITIS A 2004-05-17 Completed [facility] 00:00:00 [facility] HEPATITIS A 2004-05-17 Completed [facility] 00:00:00 [facility] HEPATITIS A 2004-05-17 Completed [facility] 00:00:00 [facility] HEPATITIS A 2004-05-17 Completed [facility] 00:00:00 [facility] HEPATITIS A 2004-05-17 Completed [facility] 00:00:00 [facility] HEPATITIS A 2004-05-17 Completed [facility] 00:00:00 [facility] HEPATITIS A 2004-05-17 Completed [facility] 00:00:00 [facility] HEPATITIS A 2004-05-17 Completed [facility] 00:00:00 [facility] HEPATITIS A 2004-05-17 Completed [facility] 00:00:00 [facility] HEPATITIS A 2004-05-17 Completed [facility] 00:00:00 [facility] HEPATITIS A 2004-05-17 Completed [facility] 00:00:00 [facility] HEPATITIS A 2004-05-17 Completed [facility] 00:00:00 [facility] HEPATITIS A 2004-05-17 Completed [facility] 00:00:00 [facility] HEPATITIS A 2004-05-17 Completed [facility] 00:00:00 [facility] HEPATITIS A 2004-05-17 Completed [facility] 00:00:00 [facility] HEPATITIS A 2004-05-17 Completed [facility] 00:00:00 [facility] HEPATITIS A 2004-05-17 Completed [facility] 00:00:00 [facility] HEPATITIS A 2004-05-17 Completed [facility] 00:00:00 [facility] HEPATITIS A 2004-05-17 Completed [facility] 00:00:00 [facility] HEPATITIS A 2004-05-17 Completed [facility] 00:00:00 [facility] HEPATITIS A 2004-05-17 Completed [facility] 00:00:00 [facility] HEPATITIS A 2004-05-17 Completed [facility] 00:00:00 [facility] HEPATITIS A 2004-05-17 Completed [facility] 00:00:00 [facility] HEPATITIS A 2004-05-17 Completed [facility] 00:00:00 [facility] HEPATITIS A 2004-05-17 Completed [facility] 00:00:00 [facility] HEPATITIS A 2004-05-17 Completed [facility] 00:00:00 [facility] HEPATITIS A 2004-05-17 Completed [facility] 00:00:00 [facility] HEPATITIS A 2004-05-17 Completed [facility] 00:00:00 [facility] HEPATITIS A 2004-05-17 Completed [facility] 00:00:00 [facility] HEPATITIS A 2004-05-17 Completed [facility] 00:00:00 [facility] HEPATITIS A 2004-05-17 Completed [facility] 00:00:00 [facility] HEPATITIS A 2004-05-17 Completed [facility] 00:00:00 [facility] HEPATITIS A 2004-05-17 Completed [facility] 00:00:00 [facility] HEPATITIS A 2004-05-17 Completed [facility] 00:00:00 [facility] HEPATITIS A 2004-05-17 Completed [facility] 00:00:00 [facility] HEPATITIS A 2004-05-17 Completed [facility] 00:00:00 [facility] HEPATITIS A 2004-05-17 Completed [facility] 00:00:00 [facility] Polio (IPV/OPV) 2003-08-21 Completed [facility] 00:00:00 [facility] Polio (IPV/OPV) 2003-08-21 Completed [facility] 00:00:00 [facility] Polio (IPV/OPV) 2003-08-21 Completed [facility] 00:00:00 [facility] Polio (IPV/OPV) 2003-08-21 Completed [facility] 00:00:00 [facility] Polio (IPV/OPV) 2003-08-21 Completed [facility] 00:00:00 [facility] Polio (IPV/OPV) 2003-08-21 Completed [facility] 00:00:00 [facility] Polio (IPV/OPV) 2003-08-21 Completed [facility] 00:00:00 [facility] Polio (IPV/OPV) 2003-08-21 Completed [facility] 00:00:00 [facility] Polio (IPV/OPV) 2003-08-21 Completed [facility] 00:00:00 [facility] Polio (IPV/OPV) 2003-08-21 Completed Universit y [...] (IPV/OPV) 2003-08-21 Completed [facility] 00:00:00 [facility] Polio (IPV/OPV) 2003-08-21 Completed [facility] 00:00:00 [facility] Polio (IPV/OPV) 2003-08-21 Completed [facility] 00:00:00 [facility] Polio (IPV/OPV) 2003-08-21 Completed [facility] 00:00:00 [facility] Polio (IPV/OPV) 2003-08-21 Completed [facility] 00:00:00 [facility] Polio (IPV/OPV) 2003-08-21 Completed [facility] 00:00:00 [facility] Polio (IPV/OPV) 2003-08-21 Completed [facility] 00:00:00 [facility] Polio (IPV/OPV) 2003-08-21 Completed [facility] 00:00:00 [facility] Polio (IPV/OPV) 2003-08-21 Completed [facility] 00:00:00 [facility] Polio (IPV/OPV) 2003-08-21 Completed [facility] 00:00:00 [facility] HIB 4 Dose Schedule 2003-05-22 Completed Unive rsity of 00:00:00 [facility] MMR 2003-05-22 Completed [facility] 00:00:00 [facility] Pneumococcal 7 2003-05-22 Completed [facility] of Conjugate, PCV7 00:00:00 [facility] (Prevnar7) [facility] Varicella 2003-05-22 Completed [facility] of (varivax)(chicken 00:00:00 [place] [facility] pox) [facility] HIB 4 Dose Schedule 2003-05-22 Completed Unive rsity of 00:00:00 [facility] MMR 2003-05-22 Completed [facility] 00:00:00 [facility] Pneumococcal 7 2003-05-22 Completed [facility] of Conjugate, PCV7 00:00:00 [facility] (Prevnar7) [facility] Varicella 2003-05-22 Completed [facility] of (varivax)(chicken 00:00:00 [facility] [place] [facility] pox) [facility] HIB 4 Dose Schedule 2003-05-22 Completed Unive rsity of 00:00:00 [facility] MMR 2003-05-22 Completed [facility] 00:00:00 [facility] Pneumococcal 7 2003-05-22 Completed [facility] of Conjugate, PCV7 00:00:00 [place] [facility] (Prevnar7) [facility] Varicella 2003-05-22 Completed [facility] (varivax)(chicken 00:00:00 [place] [facility] pox) [facility] HIB 4 Dose Schedule 2003-05-22 Completed Unive rsity of 00:00:00 [facility] MMR 2003-05-22 Completed [facility] of 00:00:00 [facility] Pneumococcal 7 2003-05-22 Completed [facility] of Conjugate, PCV7 00:00:00 [place] [facility] (Prevnar7) [facility] Varicella 2003-05-22 Completed [facility] (varivax)(chicken 00:00:00 [place] [facility] pox) [facility] HIB 4 Dose Schedule 2003-05-22 Completed Unive rsity of 00:00:00 [facility] MMR 2003-05-22 Completed [facility] of 00:00:00 [facility] Pneumococcal 7 2003-05-22 Completed [facility] of Conjugate, PCV7 00:00:00 [place] [facility] (Prevnar7) [facility] Varicella 2003-05-22 Completed [facility] (varivax)(chicken 00:00:00 [place] [facility] pox) [facility] HIB 4 Dose Schedule 2003-05-22 Completed Unive rsity of 00:00:00 [facility] MMR 2003-05-22 Completed [facility] of 00:00:00 [facility] Pneumococcal 7 2003-05-22 Completed [facility] of Conjugate, PCV7 00:00:00 [place] [facility] (Prevnar7) [facility] Varicella 2003-05-22 Completed [facility] (varivax)(chicken 00:00:00 [place] [facility] pox) [facility] HIB 4 Dose Schedule 2003-05-22 Completed Unive rsity of 00:00:00 [facility] MMR 2003-05-22 Completed [facility] of 00:00:00 [facility] Pneumococcal 7 2003-05-22 Completed [facility] of Conjugate, PCV7 00:00:00 [place] [facility] (Prevnar7) [facility] Varicella 2003-05-22 Completed [facility] (varivax)(chicken 00:00:00 [place] [facility] pox) [facility] HIB 4 Dose Schedule 2003-05-22 Completed Unive rsity of 00:00:00 [facility] MMR 2003-05-22 Completed [facility] of 00:00:00 [facility] Pneumococcal 7 2003-05-22 Completed [facility] of Conjugate, PCV7 00:00:00 [place] [facility] (Prevnar7) [facility] Varicella 2003-05-22 Completed [facility] (varivax)(chicken 00:00:00 [place] [facility] pox) [facility] HIB 4 Dose Schedule 2003-05-22 Completed Unive rsity of 00:00:00 [facility] MMR 2003-05-22 Completed [facility] 00:00:00 [facility] Pneumococcal 7 2003-05-22 Completed [facility] of Conjugate, PCV7 00:00:00 [place] [facility] (Prevnar7) [facility] Varicella 2003-05-22 Completed [facility] of (varivax)(chicken 00:00:00 [place] [facility] pox) [facility] HIB 4 Dose Schedule 2003-05-22 Completed Unive rsity of 00:00:00 [facility] MMR 2003-05-22 Completed [facility] of 00:00:00 [facility] Pneumococcal 7 2003-05-22 Completed [facility] of Conjugate, PCV7 00:00:00 [facility] [place] [facility] (Prevnar7) [facility] Varicella 2003-05-22 Completed [facility] of (varivax)(chicken 00:00:00 [place] [facility] pox) [facility] HIB 4 Dose Schedule 2003-05-22 Completed Unive rsity of 00:00:00 [facility] MMR 2003-05-22 Completed [facility] of 00:00:00 [facility] Pneumococcal 7 2003-05-22 Completed [facility] of Conjugate, PCV7 00:00:00 [facility] [place] [facility] (Prevnar7) [facility] Varicella 2003-05-22 Completed [facility] of (varivax)(chicken 00:00:00 [place] [facility] pox) [facility] HIB 4 Dose Schedule 2003-05-22 Completed Unive rsity of 00:00:00 [facility] MMR 2003-05-22 Completed [facility] of 00:00:00 [facility] Pneumococcal 7 2003-05-22 Completed [facility] of Conjugate, PCV7 00:00:00 [facility] (Prevnar7) [facility] Varicella 2003-05-22 Completed [facility] of (varivax)(chicken 00:00:00 [place] [facility] pox) [facility] HIB 4 Dose Schedule 2003-05-22 Completed Unive rsity of 00:00:00 [facility] MMR 2003-05-22 Completed [facility] of 00:00:00 [facility] Pneumococcal 7 2003-05-22 Completed [facility] of Conjugate, PCV7 00:00:00 [place] [facility] (Prevnar7) [facility] Varicella 2003-05-22 Completed [facility] of (varivax)(chicken 00:00:00 [place] [facility] pox) [facility] HIB 4 Dose Schedule 2003-05-22 Completed Unive rsity of 00:00:00 [facility] MMR 2003-05-22 Completed [facility] of 00:00:00 [facility] Pneumococcal 7 2003-05-22 Completed [facility] of Conjugate, PCV7 00:00:00 [place] [facility] (Prevnar7) [facility] Varicella 2003-05-22 Completed [facility] of (varivax)(chicken 00:00:00 [place] [facility] pox) [facility] HIB 4 Dose Schedule 2003-05-22 Completed Unive rsity of 00:00:00 [facility] MMR 2003-05-22 Completed [facility] of 00:00:00 [facility] Pneumococcal 7 2003-05-22 Completed [facility] of Conjugate, PCV7 00:00:00 [facility] [place] [facility] (Prevnar7) [facility] Varicella 2003-05-22 Completed [facility] of (varivax)(chicken 00:00:00 [place] [facility] pox) [facility] HIB 4 Dose Schedule 2003-05-22 Completed Unive rsity of 00:00:00 [facility] MMR 2003-05-22 Completed [facility] of 00:00:00 [facility] Pneumococcal 7 2003-05-22 Completed [facility] of Conjugate, PCV7 00:00:00 [place] [facility] (Prevnar7) [facility] Varicella 2003-05-22 Completed [facility] of (varivax)(chicken 00:00:00 [place] [facility] pox) [facility] HIB 4 Dose Schedule 2003-05-22 Completed Unive rsity of 00:00:00 [facility] MMR 2003-05-22 Completed [facility] of 00:00:00 [facility] Pneumococcal 7 2003-05-22 Completed [facility] of Conjugate, PCV7 00:00:00 [place] [facility] (Prevnar7) [facility] Varicella 2003-05-22 Completed [facility] of (varivax)(chicken 00:00:00 [place] [facility] pox) [facility] HIB 4 Dose Schedule 2003-05-22 Completed Unive rsity of 00:00:00 [facility] MMR 2003-05-22 Completed [facility] of 00:00:00 [facility] Pneumococcal 7 2003-05-22 Completed [facility] of Conjugate, PCV7 00:00:00 [place] [facility] (Prevnar7) [facility] Varicella 2003-05-22 Completed [facility] of (varivax)(chicken 00:00:00 [place] [facility] pox) [facility] HIB 4 Dose Schedule 2003-05-22 Completed Unive rsity of 00:00:00 [facility] MMR 2003-05-22 Completed [facility] of 00:00:00 [facility] Pneumococcal 7 2003-05-22 Completed [facility] of Conjugate, PCV7 00:00:00 [place] [facility] (Prevnar7) [facility] Varicella 2003-05-22 Completed [facility] of (varivax)(chicken 00:00:00 [place] [facility] pox) [facility] HIB 4 Dose Schedule 2003-05-22 Completed Unive rsity of 00:00:00 [facility] MMR 2003-05-22 Completed [facility] of 00:00:00 [facility] Pneumococcal 7 2003-05-22 Completed [facility] of Conjugate, PCV7 00:00:00 [facility] [place] [facility] (Prevnar7) [facility] Varicella 2003-05-22 Completed [facility] of (varivax)(chicken 00:00:00 [facility] edical pox) Branch HIB 4 Dose Schedule 2003-05-22 Completed Unive rsity of 00:00:00 [facility] MMR 2003-05-22 Completed [facility] of 00:00:00 [facility] Pneumococcal 7 2003-05-22 Completed [facility] of Conjugate, PCV7 00:00:00 [facility] [place] [facility] (Prevnar7) [facility] Varicella 2003-05-22 Completed [facility] of (varivax)(chicken 00:00:00 [facility] edical pox) Branch HIB 4 Dose Schedule 2003-05-22 Completed Unive rsity of 00:00:00 [facility] MMR 2003-05-22 Completed [facility] of 00:00:00 [facility] Pneumococcal 7 2003-05-22 Completed [facility] of Conjugate, PCV7 00:00:00 [place] [facility] (Prevnar7) [facility] Varicella 2003-05-22 Completed [facility] of (varivax)(chicken 00:00:00 [facility] edical pox) Branch HIB 4 Dose Schedule 2003-05-22 Completed Unive rsity of 00:00:00 [facility] MMR 2003-05-22 Completed [facility] of 00:00:00 [facility] Pneumococcal 7 2003-05-22 Completed [facility] of Conjugate, PCV7 00:00:00 [facility] [place] [facility] (Prevnar7) [facility] Varicella 2003-05-22 Completed [facility] (varivax)(chicken 00:00:00 [place] [facility] pox) [facility] HIB 4 Dose Schedule 2003-05-22 Completed Unive rsity of 00:00:00 [facility] MMR 2003-05-22 Completed [facility] of 00:00:00 [facility] Pneumococcal 7 2003-05-22 Completed [facility] of Conjugate, PCV7 00:00:00 [place] [facility] (Prevnar7) [facility] Varicella 2003-05-22 Completed [facility] of (varivax)(chicken 00:00:00 [place] [facility] pox) [facility] HIB 4 Dose Schedule 2003-05-22 Completed Unive rsity of 00:00:00 [facility] MMR 2003-05-22 Completed [facility] of 00:00:00 [facility] Pneumococcal 7 2003-05-22 Completed [facility] of Conjugate, PCV7 00:00:00 [place] [facility] (Prevnar7) [facility] Varicella 2003-05-22 Completed [facility] of (varivax)(chicken 00:00:00 [place] [facility] pox) [facility] HIB 4 Dose Schedule 2003-05-22 Completed Unive rsity of 00:00:00 [facility] MMR 2003-05-22 Completed [facility] of 00:00:00 [facility] Pneumococcal 7 2003-05-22 Completed [facility] of Conjugate, PCV7 00:00:00 [place] [facility] (Prevnar7) [facility] Varicella 2003-05-22 Completed [facility] of (varivax)(chicken 00:00:00 [place] [facility] pox) [facility] HIB 4 Dose Schedule 2003-05-22 Completed Unive rsity of 00:00:00 [facility] MMR 2003-05-22 Completed [facility] of 00:00:00 [facility] Pneumococcal 7 2003-05-22 Completed [facility] of Conjugate, PCV7 00:00:00 [place] [facility] (Prevnar7) [facility] Varicella 2003-05-22 Completed [facility] (varivax)(chicken 00:00:00 [place] [facility] pox) [facility] HIB 4 Dose Schedule 2003-05-22 Completed Unive rsity of 00:00:00 [facility] MMR 2003-05-22 Completed [facility] of 00:00:00 [facility] Pneumococcal 7 2003-05-22 Completed [facility] of Conjugate, PCV7 00:00:00 [place] [facility] (Prevnar7) [facility] Varicella 2003-05-22 Completed [facility] (varivax)(chicken 00:00:00 [place] [facility] pox) [facility] HIB 4 Dose Schedule 2003-05-22 Completed Unive rsity of 00:00:00 [facility] MMR 2003-05-22 Completed [facility] of 00:00:00 [facility] Pneumococcal 7 2003-05-22 Completed [facility] of Conjugate, PCV7 00:00:00 [place] [facility] (Prevnar7) [facility] Varicella 2003-05-22 Completed [facility] (varivax)(chicken 00:00:00 [place] [facility] pox) [facility] HIB 4 Dose Schedule 2003-05-22 Completed Unive rsity of 00:00:00 [facility] MMR 2003-05-22 Completed [facility] of 00:00:00 [facility] Pneumococcal 7 2003-05-22 Completed [facility] of Conjugate, PCV7 00:00:00 [place] [facility] (Prevnar7) [facility] Varicella 2003-05-22 Completed [facility] of (varivax)(chicken 00:00:00 [facility] ed[facility] pox) Branch HIB 4 Dose Schedule 2003-05-22 Completed Unive rsity of 00:00:00 [facility] MMR 2003-05-22 Completed [facility] of 00:00:00 [facility] Pneumococcal 7 2003-05-22 Completed [facility] of Conjugate, PCV7 00:00:00 [place] [facility] (Prevnar7) [facility] Varicella 2003-05-22 Completed [facility] of (varivax)(chicken 00:00:00 [facility] ed[facility] pox) Branch HIB 4 Dose Schedule 2003-05-22 Completed Unive rsity of 00:00:00 [facility] MMR 2003-05-22 Completed [facility] of 00:00:00 [facility] Pneumococcal 7 2003-05-22 Completed [facility] of Conjugate, PCV7 00:00:00 [place] [facility] (Prevnar7) [facility] Varicella 2003-05-22 Completed [facility] (varivax)(chicken 00:00:00 [place] [facility] pox) [facility] HIB 4 Dose Schedule 2003-05-22 Completed Unive rsity of 00:00:00 [facility] MMR 2003-05-22 Completed [facility] of 00:00:00 [facility] Pneumococcal 7 2003-05-22 Completed [facility] of Conjugate, PCV7 00:00:00 [place] [facility] (Prevnar7) [facility] Varicella 2003-05-22 Completed [facility] of (varivax)(chicken 00:00:00 [facility] edical pox) Branch HIB 4 Dose Schedule 2003-05-22 Completed Unive rsity of 00:00:00 [facility] MMR 2003-05-22 Completed [facility] of 00:00:00 [facility] Pneumococcal 7 2003-05-22 Completed [facility] of Conjugate, PCV7 00:00:00 [place] [facility] (Prevnar7) [facility] Varicella 2003-05-22 Completed [facility] (varivax)(chicken 00:00:00 [place] [facility] pox) [facility] HIB 4 Dose Schedule 2003-05-22 Completed Unive rsity of 00:00:00 [facility] MMR 2003-05-22 Completed [facility] 00:00:00 [facility] Pneumococcal 7 2003-05-22 Completed [facility] of Conjugate, PCV7 00:00:00 [place] [facility] (Prevnar7) [facility] Varicella 2003-05-22 Completed [facility] of (varivax)(chicken 00:00:00 [place] [facility] pox) [facility] HIB 4 Dose Schedule 2003-05-22 Completed Unive rsity of 00:00:00 [facility] MMR 2003-05-22 Completed [facility] of 00:00:00 [facility] Pneumococcal 7 2003-05-22 Completed [facility] of Conjugate, PCV7 00:00:00 [place] [facility] (Prevnar7) [facility] Varicella 2003-05-22 Completed [facility] of (varivax)(chicken 00:00:00 [facility] ed[facility] pox) Branch HIB 4 Dose Schedule 2003-05-22 Completed Unive rsity of 00:00:00 [facility] MMR 2003-05-22 Completed [facility] of 00:00:00 [facility] Pneumococcal 7 2003-05-22 Completed [facility] of Conjugate, PCV7 00:00:00 [place] [facility] (Prevnar7) [facility] Varicella 2003-05-22 Completed [facility] (varivax)(chicken 00:00:00 [place] [facility] pox) [facility] HIB 4 Dose Schedule 2003-05-22 Completed Unive rsity of 00:00:00 [facility] MMR 2003-05-22 Completed [facility] of 00:00:00 [facility] Pneumococcal 7 2003-05-22 Completed [facility] of Conjugate, PCV7 00:00:00 [place] [facility] (Prevnar7) [facility] Varicella 2003-05-22 Completed [facility] of (varivax)(chicken 00:00:00 [facility] pox) Branch HIB 4 Dose Schedule 2003-05-22 Completed Unive rsity of 00:00:00 [facility] MMR 2003-05-22 Completed [facility] of 00:00:00 [facility] Pneumococcal 7 2003-05-22 Completed [facility] of Conjugate, PCV7 00:00:00 [place] [facility] (Prevnar7) [facility] Varicella 2003-05-22 Completed [facility] (varivax)(chicken 00:00:00 [place] [facility] pox) [facility] DTAP 2003-01-01 Completed [facility] 00:00:00 [facility] HIB 4 Dose Schedule 2003-01-01 Completed Unive rsity of 00:00:00 [facility] Hep B, Adol or Pedi 2003-01-01 Completed Unive rsity of Dosage 00:00:00 [facility] Pneumococcal 7 2003-01-01 Completed University of Conjugate, PCV7 00:00:00 [place] [facility] (Prevnar7) [facility] DTAP 2003-01-01 Completed [facility] of 00:00:00 [facility] HIB 4 Dose Schedule 2003-01-01 Completed Unive rsity of 00:00:00 [facility] Hep B, Adol or Pedi 2003-01-01 Completed Unive rsity of Dosage 00:00:00 [facility] Pneumococcal 7 2003-01-01 Completed [facility] of Conjugate, PCV7 00:00:00 [place] [facility] (Prevnar7) Branch DTAP 2003-01-01 Completed [facility] 00:00:00 [facility] HIB 4 Dose Schedule 2003-01-01 Completed [facility] 00:00:00 [facility] Hep B, Adol or Pedi 2003-01-01 Completed [facility] Dosage 00:00:00 [facility] Pneumococcal 7 2003-01-01 Completed [facility] of Conjugate, PCV7 00:00:00 [place] [facility] (Prevnar7) [facility] DTAP 2003-01-01 Completed [facility] 00:00:00 [facility] HIB 4 Dose Schedule 2003-01-01 Completed [facility] 00:00:00 [facility] Hep B, Adol or Pedi 2003-01-01 Completed [facility] Dosage 00:00:00 [facility] Pneumococcal 7 2003-01-01 Completed [facility] of Conjugate, PCV7 00:00:00 [place] [facility] (Prevnar7) [facility] DTAP 2003-01-01 Completed [facility] 00:00:00 [facility] HIB 4 Dose Schedule 2003-01-01 Completed [facility] 00:00:00 [facility] Hep B, Adol or Pedi 2003-01-01 Completed [facility] Dosage 00:00:00 [facility] Pneumococcal 7 2003-01-01 Completed [facility] of Conjugate, PCV7 00:00:00 [place] [facility] (Prevnar7) [facility] DTAP 2003-01-01 Completed [facility] 00:00:00 [facility] HIB 4 Dose Schedule 2003-01-01 Completed [facility] 00:00:00 [facility] Hep B, Adol or Pedi 2003-01-01 Completed [facility] Dosage 00:00:00 [facility] Pneumococcal 7 2003-01-01 Completed [facility] Conjugate, PCV7 00:00:00 [place] [facility] (Prevnar7) [facility] DTAP 2003-01-01 Completed [facility] 00:00:00 [facility] HIB 4 Dose Schedule 2003-01-01 Completed [facility] 00:00:00 [facility] Hep B, Adol or Pedi 2003-01-01 Completed [facility] Dosage 00:00:00 [facility] Pneumococcal 7 2003-01-01 Completed [facility] Conjugate, PCV7 00:00:00 [place] [facility] (Prevnar7) [facility] DTAP 2003-01-01 Completed [facility] 00:00:00 [facility] HIB 4 Dose Schedule 2003-01-01 Completed [facility] 00:00:00 [facility] Hep B, Adol or Pedi 2003-01-01 Completed [facility] Dosage 00:00:00 [facility] Pneumococcal 7 2003-01-01 Completed [facility] Conjugate, PCV7 00:00:00 [place] [facility] (Prevnar7) [facility] DTAP 2003-01-01 Completed [facility] 00:00:00 [facility] HIB 4 Dose Schedule 2003-01-01 Completed [facility] 00:00:00 [facility] Hep B, Adol or Pedi 2003-01-01 Completed [facility] Dosage 00:00:00 [facility] Pneumococcal 7 2003-01-01 Completed [facility] Conjugate, PCV7 00:00:00 [place] [facility] (Prevnar7) [facility] DTAP 2003-01-01 Completed [facility] 00:00:00 [facility] HIB 4 Dose Schedule 2003-01-01 Completed [facility] 00:00:00 [facility] Hep B, Adol or Pedi 2003-01-01 Completed [facility] Dosage 00:00:00 [facility] Pneumococcal 7 2003-01-01 Completed [facility] Conjugate, PCV7 00:00:00 [place] [facility] (Prevnar7) [facility] DTAP 2003-01-01 Completed [facility] 00:00:00 [facility] HIB 4 Dose Schedule 2003-01-01 Completed [facility] 00:00:00 [facility] Hep B, Adol or Pedi 2003-01-01 Completed [facility] Dosage 00:00:00 [facility] Pneumococcal 7 2003-01-01 Completed [facility] Conjugate, PCV7 00:00:00 [place] [facility] (Prevnar7) [facility] DTAP 2003-01-01 Completed [facility] 00:00:00 [facility] HIB 4 Dose Schedule 2003-01-01 Completed [facility] 00:00:00 [facility] Hep B, Adol or Pedi 2003-01-01 Completed [facility] Dosage 00:00:00 [facility] Pneumococcal 7 2003-01-01 Completed [facility] Conjugate, PCV7 00:00:00 [place] [facility] (Prevnar7) [facility] DTAP 2003-01-01 Completed [facility] 00:00:00 [facility] HIB 4 Dose Schedule 2003-01-01 Completed [facility] 00:00:00 [facility] Hep B, Adol or Pedi 2003-01-01 Completed [facility] Dosage 00:00:00 [facility] Pneumococcal 7 2003-01-01 Completed [facility] Conjugate, PCV7 00:00:00 [place] [facility] (Prevnar7) [facility] DTAP 2003-01-01 Completed [facility] 00:00:00 [facility] HIB 4 Dose Schedule 2003-01-01 Completed [facility] 00:00:00 [facility] Hep B, Adol or Pedi 2003-01-01 Completed [facility] Dosage 00:00:00 [facility] Pneumococcal 7 2003-01-01 Completed [facility] Conjugate, PCV7 00:00:00 [place] [facility] (Prevnar7) [facility] DTAP 2003-01-01 Completed [facility] 00:00:00 [facility] HIB 4 Dose Schedule 2003-01-01 Completed [facility] 00:00:00 [facility] Hep B, Adol or Pedi 2003-01-01 Completed [facility] Dosage 00:00:00 [facility] Pneumococcal 7 2003-01-01 Completed [facility] Conjugate, PCV7 00:00:00 [place] [facility] (Prevnar7) [facility] DTAP 2003-01-01 Completed [facility] 00:00:00 [facility] HIB 4 Dose Schedule 2003-01-01 Completed [facility] 00:00:00 [facility] Hep B, Adol or Pedi 2003-01-01 Completed [facility] Dosage 00:00:00 [facility] Pneumococcal 7 2003-01-01 Completed [facility] Conjugate, PCV7 00:00:00 [place] [facility] (Prevnar7) [facility] DTAP 2003-01-01 Completed [facility] 00:00:00 [facility] HIB 4 Dose Schedule 2003-01-01 Completed [facility] 00:00:00 [facility] Hep B, Adol or Pedi 2003-01-01 Completed [facility] Dosage 00:00:00 [facility] Pneumococcal 7 2003-01-01 Completed [facility] Conjugate, PCV7 00:00:00 [place] [facility] (Prevnar7) [facility] DTAP 2003-01-01 Completed [facility] 00:00:00 [facility] HIB 4 Dose Schedule 2003-01-01 Completed [facility] 00:00:00 [facility] Hep B, Adol or Pedi 2003-01-01 Completed [facility] Dosage 00:00:00 [facility] Pneumococcal 7 2003-01-01 Completed [facility] Conjugate, PCV7 00:00:00 [place] [facility] (Prevnar7) [facility] DTAP 2003-01-01 Completed [facility] 00:00:00 [facility] HIB 4 Dose Schedule 2003-01-01 Completed [facility] 00:00:00 [facility] Hep B, Adol or Pedi 2003-01-01 Completed [facility] Dosage 00:00:00 [facility] Pneumococcal 7 2003-01-01 Completed [facility] Conjugate, PCV7 00:00:00 [place] [facility] (Prevnar7) [facility] DTAP 2003-01-01 Completed [facility] 00:00:00 [facility] HIB 4 Dose Schedule 2003-01-01 Completed [facility] 00:00:00 [facility] Hep B, Adol or Pedi 2003-01-01 Completed [facility] Dosage 00:00:00 [facility] Pneumococcal 7 2003-01-01 Completed [facility] Conjugate, PCV7 00:00:00 [place] [facility] (Prevnar7) [facility] DTAP 2003-01-01 Completed [facility] 00:00:00 [facility] HIB 4 Dose Schedule 2003-01-01 Completed [facility] 00:00:00 [facility] Hep B, Adol or Pedi 2003-01-01 Completed [facility] Dosage 00:00:00 [facility] Pneumococcal 7 2003-01-01 Completed [facility] Conjugate, PCV7 00:00:00 [place] [facility] (Prevnar7) [facility] DTAP 2003-01-01 Completed [facility] 00:00:00 [facility] HIB 4 Dose Schedule 2003-01-01 Completed [facility] 00:00:00 [facility] Hep B, Adol or Pedi 2003-01-01 Completed [facility] Dosage 00:00:00 [facility] Pneumococcal 7 2003-01-01 Completed [facility] Conjugate, PCV7 00:00:00 [place] [facility] (Prevnar7) [facility] DTAP 2003-01-01 Completed [facility] 00:00:00 [facility] HIB 4 Dose Schedule 2003-01-01 Completed [facility] 00:00:00 [facility] Hep B, Adol or Pedi 2003-01-01 Completed [facility] Dosage 00:00:00 [facility] Pneumococcal 7 2003-01-01 Completed [facility] Conjugate, PCV7 00:00:00 [place] [facility] (Prevnar7) [facility] DTAP 2003-01-01 Completed [facility] 00:00:00 [facility] HIB 4 Dose Schedule 2003-01-01 Completed [facility] of 00:00:00 [facility] Hep B, Adol or Pedi 2003-01-01 Completed [facility] Dosage 00:00:00 [facility] Pneumococcal 7 2003-01-01 Completed [facility] of Conjugate, PCV7 00:00:00 [place] [facility] (Prevnar7) [facility] DTAP 2003-01-01 Completed [facility] 00:00:00 [facility] HIB 4 Dose Schedule 2003-01-01 Completed [facility] 00:00:00 [facility] Hep B, Adol or Pedi 2003-01-01 Completed [facility] Dosage 00:00:00 [facility] Pneumococcal 7 2003-01-01 Completed [facility] Conjugate, PCV7 00:00:00 [place] [facility] (Prevnar7) [facility] DTAP 2003-01-01 Completed [facility] 00:00:00 [facility] HIB 4 Dose Schedule 2003-01-01 Completed [facility] 00:00:00 [facility] Hep B, Adol or Pedi 2003-01-01 Completed [facility] Dosage 00:00:00 [facility] Pneumococcal 7 2003-01-01 Completed [facility] Conjugate, PCV7 00:00:00 [place] [facility] (Prevnar7) [facility] DTAP 2003-01-01 Completed [facility] 00:00:00 [facility] HIB 4 Dose Schedule 2003-01-01 Completed [facility] 00:00:00 [facility] Hep B, Adol or Pedi 2003-01-01 Completed [facility] Dosage 00:00:00 [facility] Pneumococcal 7 2003-01-01 Completed [facility] Conjugate, PCV7 00:00:00 [place] [facility] (Prevnar7) [facility] DTAP 2003-01-01 Completed [facility] 00:00:00 [facility] HIB 4 Dose Schedule 2003-01-01 Completed [facility] 00:00:00 [facility] Hep B, Adol or Pedi 2003-01-01 Completed [facility] Dosage 00:00:00 [facility] Pneumococcal 7 2003-01-01 Completed [facility] Conjugate, PCV7 00:00:00 [place] [facility] (Prevnar7) [facility] DTAP 2003-01-01 Completed [facility] 00:00:00 [facility] HIB 4 Dose Schedule 2003-01-01 Completed [facility] 00:00:00 [facility] Hep B, Adol or Pedi 2003-01-01 Completed [facility] Dosage 00:00:00 [facility] Pneumococcal 7 2003-01-01 Completed [facility] Conjugate, PCV7 00:00:00 [place] [facility] (Prevnar7) [facility] DTAP 2003-01-01 Completed [facility] 00:00:00 [facility] HIB 4 Dose Schedule 2003-01-01 Completed [facility] 00:00:00 [facility] Hep B, Adol or Pedi 2003-01-01 Completed [facility] Dosage 00:00:00 [facility] Pneumococcal 7 2003-01-01 Completed [facility] Conjugate, PCV7 00:00:00 [place] [facility] (Prevnar7) [facility] DTAP 2003-01-01 Completed [facility] 00:00:00 [facility] HIB 4 Dose Schedule 2003-01-01 Completed [facility] 00:00:00 [facility] Hep B, Adol or Pedi 2003-01-01 Completed [facility] Dosage 00:00:00 [facility] Pneumococcal 7 2003-01-01 Completed [facility] Conjugate, PCV7 00:00:00 [place] [facility] (Prevnar7) [facility] DTAP 2003-01-01 Completed [facility] 00:00:00 [facility] HIB 4 Dose Schedule 2003-01-01 Completed [facility] 00:00:00 [facility] Hep B, Adol or Pedi 2003-01-01 Completed [facility] Dosage 00:00:00 [facility] Pneumococcal 7 2003-01-01 Completed [facility] Conjugate, PCV7 00:00:00 [place] [facility] (Prevnar7) [facility] DTAP 2003-01-01 Completed [facility] 00:00:00 [facility] HIB 4 Dose Schedule 2003-01-01 Completed [facility] 00:00:00 [facility] Hep B, Adol or Pedi 2003-01-01 Completed [facility] Dosage 00:00:00 [facility] Pneumococcal 7 2003-01-01 Completed [facility] Conjugate, PCV7 00:00:00 [place] [facility] (Prevnar7) [facility] DTAP 2003-01-01 Completed [facility] 00:00:00 [facility] HIB 4 Dose Schedule 2003-01-01 Completed [facility] 00:00:00 [facility] Hep B, Adol or Pedi 2003-01-01 Completed [facility] Dosage 00:00:00 [facility] Pneumococcal 7 2003-01-01 Completed [facility] Conjugate, PCV7 00:00:00 [place] [facility] (Prevnar7) [facility] DTAP 2003-01-01 Completed [facility] 00:00:00 [facility] HIB 4 Dose Schedule 2003-01-01 Completed [facility] 00:00:00 [facility] Hep B, Adol or Pedi 2003-01-01 Completed [facility] Dosage 00:00:00 [facility] Pneumococcal 7 2003-01-01 Completed [facility] Conjugate, PCV7 00:00:00 [place] [facility] (Prevnar7) [facility] DTAP 2003-01-01 Completed [facility] 00:00:00 [facility] HIB 4 Dose Schedule 2003-01-01 Completed [facility] 00:00:00 [facility] Hep B, Adol or Pedi 2003-01-01 Completed [facility] Dosage 00:00:00 [facility] Pneumococcal 7 2003-01-01 Completed [facility] Conjugate, PCV7 00:00:00 [place] [facility] (Prevnar7) [facility] DTAP 2003-01-01 Completed [facility] 00:00:00 [facility] HIB 4 Dose Schedule 2003-01-01 Completed [facility] 00:00:00 [facility] Hep B, Adol or Pedi 2003-01-01 Completed [facility] Dosage 00:00:00 [facility] Pneumococcal 7 2003-01-01 Completed [facility] Conjugate, PCV7 00:00:00 [place] [facility] (Prevnar7) [facility] DTAP 2003-01-01 Completed [facility] 00:00:00 [facility] HIB 4 Dose Schedule 2003-01-01 Completed [facility] 00:00:00 [facility] Hep B, Adol or Pedi 2003-01-01 Completed [facility] Dosage 00:00:00 [facility] Pneumococcal 7 2003-01-01 Completed [facility] Conjugate, PCV7 00:00:00 [place] [facility] (Prevnar7) [facility] DTAP 2003-01-01 Completed [facility] 00:00:00 [facility] HIB 4 Dose Schedule 2003-01-01 Completed [facility] 00:00:00 [facility] Hep B, Adol or Pedi 2003-01-01 Completed [facility] Dosage 00:00:00 [facility] Pneumococcal 7 2003-01-01 Completed [facility] Conjugate, PCV7 00:00:00 [place] [facility] (Prevnar7) [facility] DTAP 2002 Completed [facility] 00:00:00 [facility] HIB 4 Dose Schedule 2002 Completed [facility] 00:00:00 [facility] Pneumococcal 7 2002 Completed [facility] Conjugate, PCV7 00:00:00 [place] [facility] (Prevnar7) [facility] Polio (IPV/OPV) 2002 Completed [facility] 00:00:00 [facility] DTAP 2002 Completed [facility] 00:00:00 [facility] HIB 4 Dose Schedule 2002 Completed [facility] 00:00:00 [facility] Pneumococcal 7 2002 Completed [facility] Conjugate, PCV7 00:00:00 [place] [facility] (Prevnar7) [facility] Polio (IPV/OPV) 2002 Completed [facility] 00:00:00 [facility] DTAP 2002 Completed [facility] 00:00:00 [facility] HIB 4 Dose Schedule 2002 Completed [facility] 00:00:00 [facility] Pneumococcal 7 2002 Completed [facility] Conjugate, PCV7 00:00:00 [place] [facility] (Prevnar7) [facility] Polio (IPV/OPV) 2002 Completed [facility] 00:00:00 [facility] DTAP 2002 Completed [facility] 00:00:00 [facility] HIB 4 Dose Schedule 2002 Completed [facility] 00:00:00 [facility] Pneumococcal 7 2002 Completed [facility] Conjugate, PCV7 00:00:00 [place] [facility] (Prevnar7) [facility] Polio (IPV/OPV) 2002 Completed [facility] 00:00:00 [facility] DTAP 2002 Completed [facility] 00:00:00 [facility] HIB 4 Dose Schedule 2002 Completed [facility] 00:00:00 [facility] Pneumococcal 7 2002 Completed [facility] Conjugate, PCV7 00:00:00 [place] [facility] (Prevnar7) [facility] Polio (IPV/OPV) 2002 Completed [facility] 00:00:00 [facility] DTAP 2002 Completed [facility] 00:00:00 [facility] HIB 4 Dose Schedule 2002 Completed [facility] 00:00:00 [facility] Pneumococcal 7 2002 Completed [facility] Conjugate, PCV7 00:00:00 [place] [facility] (Prevnar7) [facility] Polio (IPV/OPV) 2002 Completed [facility] 00:00:00 [facility] DTAP 2002 Completed [facility] 00:00:00 [facility] HIB 4 Dose Schedule 2002 Completed [facility] 00:00:00 [facility] Pneumococcal 7 2002 Completed [facility] Conjugate, PCV7 00:00:00 [place] [facility] (Prevnar7) [facility] Polio (IPV/OPV) 2002 Completed [facility] 00:00:00 [facility] DTAP 2002 Completed [facility] 00:00:00 [facility] HIB 4 Dose Schedule 2002 Completed [facility] 00:00:00 [facility] Pneumococcal 7 2002 Completed [facility] Conjugate, PCV7 00:00:00 [place] [facility] (Prevnar7) [facility] Polio (IPV/OPV) 2002 Completed [facility] 00:00:00 [facility] DTAP 2002 Completed [facility] 00:00:00 [facility] HIB 4 Dose Schedule 2002 Completed [facility] 00:00:00 [facility] Pneumococcal 7 2002 Completed [facility] Conjugate, PCV7 00:00:00 [place] [facility] (Prevnar7) [facility] Polio (IPV/OPV) 2002 Completed [facility] 00:00:00 [facility] DTAP 2002 Completed [facility] 00:00:00 [facility] HIB 4 Dose Schedule 2002 Completed [facility] 00:00:00 [facility] Pneumococcal 7 2002 Completed [facility] Conjugate, PCV7 00:00:00 [place] [facility] (Prevnar7) [facility] Polio (IPV/OPV) 2002 Completed [facility] 00:00:00 [facility] DTAP 2002 Completed [facility] 00:00:00 [facility] HIB 4 Dose Schedule 2002 Completed [facility] 00:00:00 [facility] Pneumococcal 7 2002 Completed [facility] Conjugate, PCV7 00:00:00 [place] [facility] (Prevnar7) [facility] Polio (IPV/OPV) 2002 Completed [facility] 00:00:00 [facility] DTAP 2002 Completed [facility] 00:00:00 [facility] HIB 4 Dose Schedule 2002 Completed [facility] 00:00:00 [facility] Pneumococcal 7 2002 Completed [facility] Conjugate, PCV7 00:00:00 [place] [facility] (Prevnar7) [facility] Polio (IPV/OPV) 2002 Completed [facility] 00:00:00 [facility] DTAP 2002 Completed [facility] 00:00:00 [facility] HIB 4 Dose Schedule 2002 Completed [facility] 00:00:00 [facility] Pneumococcal 7 2002 Completed [facility] Conjugate, PCV7 00:00:00 [place] [facility] (Prevnar7) [facility] Polio (IPV/OPV) 2002 Completed [facility] 00:00:00 [facility] DTAP 2002 Completed [facility] 00:00:00 [facility] HIB 4 Dose Schedule 2002 Completed [facility] 00:00:00 [facility] Pneumococcal 7 2002 Completed [facility] Conjugate, PCV7 00:00:00 [place] [facility] (Prevnar7) [facility] Polio (IPV/OPV) 2002 Completed [facility] 00:00:00 [facility] DTAP 2002 Completed [facility] 00:00:00 [facility] HIB 4 Dose Schedule 2002 Completed [facility] 00:00:00 [facility] Pneumococcal 7 2002 Completed [facility] Conjugate, PCV7 00:00:00 [place] [facility] (Prevnar7) [facility] Polio (IPV/OPV) 2002 Completed [facility] 00:00:00 [facility] DTAP 2002 Completed [facility] 00:00:00 [facility] HIB 4 Dose Schedule 2002 Completed [facility] 00:00:00 [facility] Pneumococcal 7 2002 Completed [facility] Conjugate, PCV7 00:00:00 [place] [facility] (Prevnar7) Branch Polio (IPV/OPV) 2002 Completed [facility] 00:00:00 [facility] DTAP 2002 Completed [facility] 00:00:00 [facility] HIB 4 Dose Schedule 2002 Completed [facility] 00:00:00 [facility] Pneumococcal 7 2002 Completed [facility] Conjugate, PCV7 00:00:00 [place] [facility] (Prevnar7) [facility] Polio (IPV/OPV) 2002 Completed [facility] 00:00:00 [facility] DTAP 2002 Completed [facility] 00:00:00 [facility] HIB 4 Dose Schedule 2002 Completed [facility] 00:00:00 [facility] Pneumococcal 7 2002 Completed [facility] Conjugate, PCV7 00:00:00 [place] [facility] (Prevnar7) Branch Polio (IPV/OPV) 2002 Completed [facility] 00:00:00 [facility] DTAP 2002 Completed [facility] 00:00:00 [facility] HIB 4 Dose Schedule 2002 Completed [facility] 00:00:00 [facility] Pneumococcal 7 2002 Completed [facility] Conjugate, PCV7 00:00:00 [place] [facility] (Prevnar7) [facility] Polio (IPV/OPV) 2002 Completed [facility] 00:00:00 [facility] DTAP 2002 Completed [facility] 00:00:00 [facility] HIB 4 Dose Schedule 2002 Completed [facility] 00:00:00 [facility] Pneumococcal 7 2002 Completed [facility] Conjugate, PCV7 00:00:00 [place] [facility] (Prevnar7) [facility] Polio (IPV/OPV) 2002 Completed [facility] 00:00:00 [facility] DTAP 2002 Completed [facility] 00:00:00 [facility] HIB 4 Dose Schedule 2002 Completed [facility] 00:00:00 [facility] Pneumococcal 7 2002 Completed [facility] Conjugate, PCV7 00:00:00 [place] [facility] (Prevnar7) [facility] Polio (IPV/OPV) 2002 Completed [facility] 00:00:00 [facility] DTAP 2002 Completed [facility] 00:00:00 [facility] HIB 4 Dose Schedule 2002 Completed [facility] 00:00:00 [facility] Pneumococcal 7 2002 Completed [facility] Conjugate, PCV7 00:00:00 [place] [facility] (Prevnar7) [facility] Polio (IPV/OPV) 2002 Completed [facility] 00:[facility]:00 [facility] [facility] DTAP 2002 Completed [facility] 00:00:00 [facility] HIB 4 Dose Schedule 2002 Completed [facility] 00:00:00 [facility] Pneumococcal 7 2002 Completed [facility] Conjugate, PCV7 00:00:00 [facility] (Prevnar7) [facility] Polio (IPV/OPV) 2002 Completed [facility] 00:00:00 [facility] DTAP 2002 Completed [facility] 00:00:00 [facility] HIB 4 Dose Schedule 2002 Completed [facility] 00:00:00 [facility] Pneumococcal 7 2002 Completed [facility] Conjugate, PCV7 00:00:00 [facility] (Prevnar7) [facility] Polio (IPV/OPV) 2002 Completed [facility] 00:00:00 [facility] DTAP 2002 Completed [facility] 00:00:00 [facility] HIB 4 Dose Schedule 2002 Completed [facility] 00:00:00 [facility] Pneumococcal 7 2002 Completed [facility] Conjugate, PCV7 00:00:00 [facility] (Prevnar7[facility] Polio (IPV/OPV) 2002 Completed [facility] 00:00:00 [facility] DTAP 2002 Completed [facility] 00:00:00 [facility] HIB 4 Dose Schedule 2002 Completed [facility] 00:00:00 [facility] Pneumococcal 7 2002 Completed [facility] Conjugate, PCV7 00:00:00 [facility] (Prevnar[facility] Polio (IPV/OPV) 2002 Completed [facility] 00:00:00 [facility] DTAP 2002 Completed [facility] 00:00:00 [facility] HIB 4 Dose Schedule 2002 Completed [facility] 00:00:00 [facility] Pneumococcal 7 2002 Completed [facility] Conjugate, PCV7 00:00:00 [facility] (Prevnar[facility] Polio (IPV/OPV) 2002 Completed [facility] 00:00:00 [facility] DTAP 2002 Completed [facility] 00:00:00 [facility] HIB 4 Dose Schedule 2002 Completed [facility] 00:00:00 [facility] Pneumococcal 7 2002 Completed [facility] Conjugate, PCV7 00:00:00 [facility] ([facility] Polio (IPV/OPV) 2002 Completed [facility] 00:00:00 [facility] DTAP 2002 Completed [facility] 00:00:00 [facility] HIB 4 Dose Schedule 2002 Completed [facility] 00:00:00 [facility] Pneumococcal 7 2002 Completed [facility] Conjugate, PCV7 00:00:00 [facility] (Prevnar[facility] Polio (IPV/OPV) 2002 Completed [facility] 00:00:00 [facility] DTAP 2002 Completed [facility] 00:00:00 [facility] HIB 4 Dose Schedule 2002 Completed [facility] 00:00:00 [facility] Pneumococcal 7 2002 Completed [facility] Conjugate, PCV7 00:00:00 [facility] (Prevnar7[facility] Polio (IPV/OPV) 2002 Completed [facility] 00:00:00 [facility] DTAP 2002 Completed [facility] 00:00:00 [facility] HIB 4 Dose Schedule 2002 Completed [facility] 00:00:00 [facility] Pneumococcal 7 2002 Completed [facility] Conjugate, PCV7 00:00:00 [facility] (Prevnar7[facility] Polio (IPV/OPV) 2002 Completed [facility] 00:00:00 [facility] DTAP 2002 Completed [facility] 00:00:00 [facility] HIB 4 Dose Schedule 2002 Completed [facility] 00:00:00 [facility] Pneumococcal 7 2002 Completed [facility] Conjugate, PCV7 00:00:00 [facility] (Pre[facility]ar[facility] Polio (IPV/OPV) 2002 Completed [facility] 00:00:00 [facility] DTAP 2002 Completed [facility] 00:00:00 [facility] HIB 4 Dose Schedule 2002 Completed [facility] 00:00:00 [facility] Pneumococcal 7 2002 Completed [facility] Conjugate, PCV7 00:00:00 [facility] (Pre[facility]ar[facility] Polio (IPV/OPV) 2002 Completed [facility] 00:00:00 [facility] DTAP 2002 Completed [facility] 00:00:00 [facility] HIB 4 Dose Schedule 2002 Completed [facility] 00:00:00 [facility] Pneumococcal 7 2002 Completed [facility] Conjugate, PCV7 00:00:00 [facility] (Prevnar7) [facility] Polio (IPV/OPV) 2002 Completed [facility] 00:00:00 [facility] DTAP 2002 Completed [facility] 00:00:00 [facility] HIB 4 Dose Schedule 2002 Completed [facility] 00:00:00 [facility] Pneumococcal 7 2002 Completed [facility] Conjugate, PCV7 00:00:00 [facility] (Prevnar7) [facility] Polio (IPV/OPV) 2002 Completed [facility] 00:00:00 [facility] DTAP 2002 Completed [facility] 00:00:00 [facility] HIB 4 Dose Schedule 2002 Completed [facility] 00:00:00 [facility] Pneumococcal 7 2002 Completed [facility] Conjugate, PCV7 00:00:00 [facility] (Prevnar7) [facility] Polio (IPV/OPV) 2002 Completed [facility] 00:00:00 [facility] DTAP 2002 Completed [facility] 00:00:00 [facility] HIB 4 Dose Schedule 2002 Completed [facility] 00:00:00 [facility] Pneumococcal 7 2002 Completed [facility] Conjugate, PCV7 00:00:00 [facility] [place] [facility] (Prevnar7[facility] Polio (IPV/OPV) 2002 Completed [facility] 00:00:00 [facility] DTAP 2002 Completed [facility] 00:00:00 [facility] HIB 4 Dose Schedule 2002 Completed [facility] 00:00:00 [facility] Pneumococcal 7 2002 Completed [facility] Conjugate, PCV7 00:00:00 [facility] (Prevnar7) [facility] Polio (IPV/OPV) 2002 Completed [facility] 00:00:00 [facility] DTAP 2002 Completed [facility] 00:00:00 [facility] HIB 4 Dose Schedule 2002 Completed [facility] 00:00:00 [facility] Pneumococcal 7 2002 Completed [facility] Conjugate, PCV7 00:00:00 [facility] (Prevnar7) [facility] Polio (IPV/OPV) 2002 Completed [facility] 00:00:00 [facility] DTAP 2002 Completed [facility] 00:00:00 [facility] HIB 4 Dose Schedule 2002 Completed [facility] 00:00:00 [facility] Hep B, Adol or Pedi 2002 Completed [facility] Dosage 00:00:00 [facility] Polio (IPV/OPV) 2002 Completed [facility] 00:00:00 [facility] DTAP 2002 Completed [facility] 00:00:00 [facility] HIB 4 Dose Schedule 2002 Completed [facility] 00:00:00 [facility] Hep B, Adol or Pedi 2002 Completed [facility] Dosage 00:00:00 [facility] Polio (IPV/OPV) 2002 Completed [facility] 00:00:00 [facility] DTAP 2002 Completed [facility] 00:00:00 [facility] HIB 4 Dose Schedule 2002 Completed [facility] 00:00:00 [facility] Hep B, Adol or Pedi 2002 Completed [facility] Dosage 00:00:00 [facility] Polio (IPV/OPV) 2002 Completed [facility] 00:00:00 [facility] DTAP 2002 Completed [facility] 00:00:00 [facility] HIB 4 Dose Schedule 2002 Completed [facility] 00:00:00 [facility] Hep B, Adol or Pedi 2002 Completed [facility] Dosage 00:00:00 [facility] Polio (IPV/OPV) 2002 Completed [facility] 00:00:00 [facility] DTAP 2002 Completed [facility] 00:00:00 [facility] HIB 4 Dose Schedule 2002 Completed [facility] 00:00:00 [facility] Hep B, Adol or Pedi 2002 Completed [facility] Dosage 00:00:00 [facility] Polio (IPV/OPV) 2002 Completed [facility] 00:00:00 [facility] DTAP 2002 Completed [facility] 00:00:00 [facility] HIB 4 Dose Schedule 2002 Completed [facility] 00:00:00 [facility] Hep B, Adol or Pedi 2002 Completed [facility] Dosage 00:00:00 [facility] Polio (IPV/OPV) 2002 Completed [facility] 00:00:00 [facility] DTAP 2002 Completed [facility] 00:00:00 [facility] HIB 4 Dose Schedule 2002 Completed [facility] 00:00:00 [facility] Hep B, Adol or Pedi 2002 Completed [facility] Dosage 00:00:00 [facility] Polio (IPV/OPV) 2002 Completed [facility] 00:00:00 [facility] DTAP 2002 Completed [facility] 00:00:00 [facility] HIB 4 Dose Schedule 2002 Completed [facility] 00:00:00 [facility] Hep B, Adol or Pedi 2002 Completed [facility] Dosage 00:00:00 [facility] Polio (IPV/OPV) 2002 Completed [facility] 00:00:00 [facility] DTAP 2002 Completed [facility] 00:00:00 [facility] HIB 4 Dose Schedule 2002 Completed [facility] 00:00:00 [facility] Hep B, Adol or Pedi 2002 Completed [facility] Dosage 00:00:00 [facility] Polio (IPV/OPV) 2002 Completed [facility] 00:00:00 [facility] DTAP 2002 Completed [facility] 00:00:00 [facility] HIB 4 Dose Schedule 2002 Completed [facility] 00:00:00 [facility] Hep B, Adol or Pedi 2002 Completed [facility] Dosage 00:00:00 [facility] Polio (IPV/OPV) 2002 Completed [facility] 00:00:00 [facility] DTAP 2002 Completed [facility] 00:00:00 [facility] HIB 4 Dose Schedule 2002 Completed [facility] 00:00:00 [facility] Hep B, Adol or Pedi 2002 Completed [facility] Dosage 00:00:00 [facility] Polio (IPV/OPV) 2002 Completed [facility] 00:00:00 [facility] DTAP 2002 Completed [facility] 00:00:00 [facility] HIB 4 Dose Schedule 2002 Completed [facility] 00:00:00 [facility] Hep B, Adol or Pedi 2002 Completed [facility] Dosage 00:00:00 [facility] Polio (IPV/OPV) 2002 Completed [facility] 00:00:00 [facility] DTAP 2002 Completed [facility] 00:00:00 [facility] HIB 4 Dose Schedule 2002 Completed [facility] 00:00:00 [facility] Hep B, Adol or Pedi 2002 Completed [facility] Dosage 00:00:00 [facility] Polio (IPV/OPV) 2002 Completed [facility] 00:00:00 [facility] DTAP 2002 Completed [facility] 00:00:00 [facility] HIB 4 Dose Schedule 2002 Completed [facility] 00:00:00 [facility] Hep B, Adol or Pedi 2002 Completed [facility] Dosage 00:00:00 [facility] Polio (IPV/OPV) 2002 Completed [facility] 00:00:00 [facility] DTAP 2002 Completed [facility] 00:00:00 [facility] HIB 4 Dose Schedule 2002 Completed [facility] 00:00:00 [facility] Hep B, Adol or Pedi 2002 Completed [facility] Dosage 00:00:00 [facility] Polio (IPV/OPV) 2002 Completed [facility] 00:00:00 [facility] DTAP 2002 Completed [facility] 00:00:00 [facility] HIB 4 Dose Schedule 2002 Completed [facility] 00:00:00 [facility] Hep B, Adol or Pedi 2002 Completed [facility] Dosage 00:00:00 [facility] Polio (IPV/OPV) 2002 Completed [facility] 00:00:00 [facility] DTAP 2002 Completed [facility] 00:00:00 [facility] HIB 4 Dose Schedule 2002 Completed [facility] 00:00:00 [facility] Hep B, Adol or Pedi 2002 Completed [facility] Dosage 00:00:00 [facility] Polio (IPV/OPV) 2002 Completed [facility] 00:00:00 [facility] DTAP 2002 Completed [facility] 00:00:00 [facility] HIB 4 Dose Schedule 2002 Completed [facility] 00:00:00 [facility] Hep B, Adol or Pedi 2002 Completed [facility] Dosage 00:00:00 [facility] Polio (IPV/OPV) 2002 Completed [facility] 00:00:00 [facility] DTAP 2002 Completed [facility] 00:00:00 [facility] HIB 4 Dose Schedule 2002 Completed [facility] 00:00:00 [facility] Hep B, Adol or Pedi 2002 Completed [facility] Dosage 00:00:00 [facility] Polio (IPV/OPV) 2002 Completed [facility] 00:00:00 [facility] DTAP 2002 Completed [facility] 00:00:00 [facility] HIB 4 Dose Schedule 2002 Completed [facility] 00:00:00 [facility] Hep B, Adol or Pedi 2002 Completed [facility] Dosage 00:00:00 [facility] Polio (IPV/OPV) 2002 Completed [facility] 00:00:00 [facility] DTAP 2002 Completed [facility] 00:00:00 [facility] HIB 4 Dose Schedule 2002 Completed [facility] 00:00:00 [facility] Hep B, Adol or Pedi 2002 Completed [facility] Dosage 00:00:00 [facility] Polio (IPV/OPV) 2002 Completed [facility] 00:00:00 [facility] DTAP 2002 Completed [facility] 00:00:00 [facility] HIB 4 Dose Schedule 2002 Completed [facility] 00:00:00 [facility] Hep B, Adol or Pedi 2002 Completed [facility] Dosage 00:00:00 [facility] Polio (IPV/OPV) 2002 Completed [facility] 00:00:00 [facility] DTAP 2002 Completed [facility] 00:00:00 [facility] HIB 4 Dose Schedule 2002 Completed [facility] 00:00:00 [facility] Hep B, Adol or Pedi 2002 Completed [facility] Dosage 00:00:00 [facility] Polio (IPV/OPV) 2002 Completed [facility] 00:00:00 [facility] DTAP 2002 Completed [facility] 00:00:00 [facility] HIB 4 Dose Schedule 2002 Completed [facility] 00:00:00 [facility] Hep B, Adol or Pedi 2002 Completed [facility] Dosage 00:00:00 [facility] Polio (IPV/OPV) 2002 Completed [facility] 00:00:00 [facility] DTAP 2002 Completed [facility] 00:00:00 [facility] HIB 4 Dose Schedule 2002 Completed [facility] 00:00:00 [facility] Hep B, Adol or Pedi 2002 Completed [facility] Dosage 00:00:00 [facility] Polio (IPV/OPV) 2002 Completed [facility] 00:00:00 [facility] DTAP 2002 Completed [facility] 00:00:00 [facility] HIB 4 Dose Schedule 2002 Completed [facility] 00:00:00 [facility] Hep B, Adol or Pedi 2002 Completed [facility] Dosage 00:00:00 [facility] Polio (IPV/OPV) 2002 Completed [facility] 00:00:00 [facility] DTAP 2002 Completed [facility] 00:00:00 [facility] HIB 4 Dose Schedule 2002 Completed [facility] 00:00:00 [facility] Hep B, Adol or Pedi 2002 Completed [facility] Dosage 00:00:00 [facility] Polio (IPV/OPV) 2002 Completed [facility] 00:00:00 [facility] DTAP 2002 Completed [facility] 00:00:00 [facility] HIB 4 Dose Schedule 2002 Completed [facility] 00:00:00 [facility] Hep B, Adol or Pedi 2002 Completed [facility] Dosage 00:00:00 [facility] Polio (IPV/OPV) 2002 Completed [facility] 00:00:00 [facility] DTAP 2002 Completed [facility] 00:00:00 [facility] HIB 4 Dose Schedule 2002 Completed [facility] 00:00:00 [facility] Hep B, Adol or Pedi 2002 Completed [facility] Dosage 00:00:00 [facility] Polio (IPV/OPV) 2002 Completed [facility] 00:00:00 [facility] DTAP 2002 Completed [facility] 00:00:00 [facility] HIB 4 Dose Schedule 2002 Completed [facility] 00:00:00 [facility] Hep B, Adol or Pedi 2002 Completed [facility] Dosage 00:00:00 [facility] Polio (IPV/OPV) 2002 Completed [facility] 00:00:00 [facility] DTAP 2002 Completed [facility] 00:00:00 [facility] HIB 4 Dose Schedule 2002 Completed [facility] 00:00:00 [facility] Hep B, Adol or Pedi 2002 Completed [facility] Dosage 00:00:00 [facility] Polio (IPV/OPV) 2002 Completed [facility] 00:00:00 [facility] DTAP 2002 Completed [facility] 00:00:00 [facility] HIB 4 Dose Schedule 2002 Completed [facility] 00:00:00 [facility] Hep B, Adol or Pedi 2002 Completed [facility] Dosage 00:00:00 [facility] Polio (IPV/OPV) 2002 Completed [facility] 00:00:00 [facility] DTAP 2002 Completed [facility] 00:00:00 [facility] HIB 4 Dose Schedule 2002 Completed [facility] 00:00:00 [facility] Hep B, Adol or Pedi 2002 Completed [facility] Dosage 00:00:00 [facility] Polio (IPV/OPV) 2002 Completed [facility] 00:00:00 [facility] DTAP 2002 Completed [facility] 00:00:00 [facility] HIB 4 Dose Schedule 2002 Completed [facility] 00:00:00 [facility] Hep B, Adol or Pedi 2002 Completed [facility] Dosage 00:00:00 [facility] Polio (IPV/OPV) 2002 Completed [facility] 00:00:00 [facility] DTAP 2002 Completed [facility] 00:00:00 [facility] HIB 4 Dose Schedule 2002 Completed [facility] 00:00:00 [facility] Hep B, Adol or Pedi 2002 Completed [facility] Dosage 00:00:00 [facility] Polio (IPV/OPV) 2002 Completed [facility] 00:00:00 [facility] DTAP 2002 Completed [facility] 00:00:00 [facility] HIB 4 Dose Schedule 2002 Completed [facility] 00:00:00 [facility] Hep B, Adol or Pedi 2002 Completed [facility] Dosage 00:00:00 [facility] Polio (IPV/OPV) 2002 Completed [facility] 00:00:00 [facility] DTAP 2002 Completed [facility] 00:00:00 [facility] HIB 4 Dose Schedule 2002 Completed [facility] 00:00:00 [facility] Hep B, Adol or Pedi 2002 Completed [facility] Dosage 00:00:00 [facility] Polio (IPV/OPV) 2002 Completed [facility] 00:00:00 [facility] DTAP 2002 Completed [facility] 00:00:00 [facility] HIB 4 Dose Schedule 2002 Completed [facility] 00:00:00 [facility] Hep B, Adol or Pedi 2002 Completed [facility] Dosage 00:00:00 [facility] Polio (IPV/OPV) 2002 Completed [facility] 00:00:00 [facility] DTAP 2002 Completed [facility] 00:00:00 [facility] HIB 4 Dose Schedule 2002 Completed [facility] 00:00:00 [facility] Hep B, Adol or Pedi 2002 Completed [facility] Dosage 00:00:00 [facility] Polio (IPV/OPV) 2002 Completed [facility] 00:00:00 [facility] Hep B, Adol or Pedi 2002 Completed [facility] Dosage 00:00:00 [facility] Hep B, Adol or Pedi 2002 Completed [facility] Dosage 00:00:00 [facility] Hep B, Adol or Pedi 2002 Completed [facility] Dosage 00:00:00 [facility] Hep B, Adol or Pedi 2002 Completed [facility] Dosage 00:00:00 [facility] Hep B, Adol or Pedi 2002 Completed [facility] Dosage 00:00:00 [facility] Hep B, Adol or Pedi 2002 Completed [facility] Dosage 00:00:00 [facility] Hep B, Adol or Pedi [...] Completed [facility] Dosage 00:00:00 [facility] Hep B, Adol or Pedi 2002 Completed [facility] Dosage 00:00:00 [facility] Hep B, Adol or Pedi 2002 Completed [facility] Dosage 00:00:00 [facility] Hep B, Adol or Pedi 2002 Completed [facility] Dosage 00:00:00 [facility] Hep B, Adol or Pedi 2002 Completed [facility] Dosage 00:00:00 [facility] Hep B, Adol or Pedi 2002 Completed [facility] Dosage 00:00:00 [facility] Hep B, Adol or Pedi 2002 Completed [facility] Dosage 00:00:00 [facility] Hep B, Adol or Pedi 2002 Completed [facility] Dosage 00:00:00 [facility] Hep B, Adol or Pedi 2002 Completed [facility] Dosage 00:00:00 [facility] Hep B, Adol or Pedi 2002 Completed [facility] Dosage 00:00:00 [facility] Hep B, Adol or Pedi 2002 Completed [facility] Dosage 00:00:00 [facility] Hep B, Adol or Pedi 2002 Completed [facility] Dosage 00:00:00 [facility] Hep B, Adol or Pedi 2002 Completed [facility] Dosage 00:00:00 [facility] Hep B, Adol or Pedi 2002 Completed [facility] Dosage 00:00:00 [facility] Hep B, Adol or Pedi 2002 Completed [facility] Dosage 00:00:00 [facility] Vital Signs Vital Name Observation Time Observation Value Comments Source Body temperature 2022-06-16 35.83 [facility] 17:18:00 [facility] Body height 2022-06-16 160 cm [facility] 17:18:00 [facility] Body weight 2022-06-16 50.44 kg [facility] 17:18:00 [facility] BMI 2022-06-16 19.70 kg/m2 [facility] 17:18: [facility] Systolic blood 2022-06-01 94 mm[Hg] erp informed, University o f pressure 05:18: asymptomatic [facility] Diastolic blood 2022-06-01 71 mm[Hg] erp informed, University of pressure 05:18: asymptomatic [facility] Heart rate 2022-06-01 85 /min [facility] 05:18:00 [facility] Respiratory rate 2022-06-01 18 /min University of 05:18:00 [facility] Oxygen saturation 2022-06-01 100 /min [facility] in Arterial blood 05:18:00 [facility] [place] by Pulse oximetry Branch Body temperature 2022-06-01 36.5 Linda University of 04:31:00 [facility] Body height 2022-06-01 160 cm University of 04:31: [facility] Body weight 2022-06-01 51.256 kg University of 04:31:00 [facility] BMI 2022-06-01 20.02 kg/m2 University of 04:31:00 [facility] Body temperature 2022-05-19 36.28 Linda University of 18:: [facility] Body weight 2022-05-19 51.256 kg University of 18:: [facility] BMI 2022-05-19 20.02 kg/m2 University of 18:: [facility] Body temperature 2022-04-21 36.22 Linda University of 20:32:00 [facility] Body height 2022-04-21 160 cm University of 20:32:00 [facility] Body weight 2022-04-21 50.349 kg University of 20:32: [facility] BMI 2022-04-21 19.66 kg/m2 University of 20:32:00 [facility] Systolic blood 2022-04-11 110 mm[Hg] University of pressure 03:10:00 [facility] Diastolic blood 2022-04-11 73 mm[Hg] University o f pressure 03:10:00 [facility] Heart rate 2022-04-11 88 /min University of 03:10:00 [facility] Respiratory rate 2022-04-11 18 /min University of 03:10:00 [facility] Oxygen saturation 2022-04-11 100 /min University of in Arterial blood 03:10:00 [facility] by Pulse oximetry Branch Body temperature 2022-04-10 36.28 Linda University of 22:10:00 [facility] Body weight 2022-04-10 49.896 kg University of 22:10:00 [facility] BMI 2022-04-10 19.80 kg/m2 University of 22:10:00 [facility] Systolic blood 2022-04-10 108 mm[Hg] University of pressure 21:48:00 [facility] Diastolic blood 2022-04-10 75 mm[Hg] University o f pressure 21:48:00 [facility] Heart rate 2022-04-10 127 /min University of 21:48:00 [facility] Body temperature 2022-04-10 36.61 Linda University of 21:48:00 [facility] Respiratory rate 2022-04-10 17 /min University of 21:48:00 [facility] Body height 2022-04-10 158.8 cm University of 21:48:00 [facility] Body weight 2022-04-10 49.896 kg University of 21:48:00 [facility] BMI 2022-04-10 19.80 kg/m2 University of 21:48:00 [facility] Oxygen saturation 2022-04-10 98 /min University of in Arterial blood 21:48:00 [facility] by Pulse oximetry [place] Systolic blood 2022-04-07 104 mm[Hg] University of pressure 18:00:00 [facility] Diastolic blood 2022-04-07 58 mm[Hg] University o f pressure 18:00:00 [facility] Heart rate 2022-04-07 64 /min University of 18:00:00 [facility] Body temperature 2022-04-07 36.39 Linda University of 18:00:00 [facility] Respiratory rate 2022-04-07 18 /min University of 18:00:00 [facility] Oxygen saturation 2022-04-07 96 /min University of in Arterial blood 18:00:00 [facility] [place] by Pulse oximetry Branch Body height 2022-04-04 161.3 cm University of 23:00:18 [facility] Body weight 2022-04-04 50.349 kg University of 23:00:18 [facility] BMI 2022-04-04 19.35 kg/m2 University of 23:00:18 [facility] Heart rate 2022-04-04 109 /min University of 21:03:00 [facility] Body temperature 2022-04-04 37.72 Linda University of 21:03:00 [facility] Respiratory rate 2022-04-04 18 /min University of 21:03:00 [facility] Oxygen saturation 2022-04-04 95 /min [facility] in Arterial blood 21:03:00 [facility] by Pulse oximetry Branch Systolic blood 2022-04-04 98 mm[Hg] University of pressure 21:00:00 [facility] Diastolic blood 2022-04-04 64 mm[Hg] University o f pressure 21:00:00 [facility] Body height 2022-04-04 162.6 cm University of 17:44:00 [facility] Body weight 2022-04-04 50.349 kg University of 17:44:00 [facility] BMI 2022-04-04 19.05 kg/m2 University of 17:44:00 [facility] Systolic blood 2022-04-01 118 mm[Hg] University of pressure 06:00:00 [facility] Diastolic blood 2022-04-01 92 mm[Hg] University o f pressure 06:00:00 [facility] Heart rate 2022-04-01 78 /min University 06:00:00 [facility] Respiratory rate 2022-04-01 16 /min University of 06:00:00 [facility] Oxygen saturation 2022-04-01 98 /min [facility] in Arterial blood 06:00:00 [facility] by Pulse oximetry Branch Body height 2022-04-01 160 cm University of 03:48:00 [facility] Body weight 2022-04-01 56.7 kg University of 03:48:00 [facility] BMI 2022-04-01 22.14 kg/m2 University of 03:48:00 [facility] Height 2020-09-25 165.1 CM 23:56:00 Weight 2020-09-25 2.69 KG 23:56:00 Systolic blood 2022-08-22 117 mm[Hg] University of pressure 15:53:00 [facility] Diastolic blood 2022-08-22 80 mm[Hg] University o f pressure 15:53:00 [facility] Heart rate 2022-08-22 88 /min University of 15:53:00 [facility] Respiratory rate 2022-08-22 18 /min University of 15:53:00 [facility] Body height 2022-08-22 160 cm University of 15:53:00 [facility] Body weight 2022-08-22 50.803 kg University of 15:53:00 [facility] BMI 2022-08-22 19.84 kg/m2 University of 15:53:00 [facility] Systolic blood 2022-07-25 100 mm[Hg] University of pressure 14:23:00 [facility] Diastolic blood 2022-07-25 78 mm[Hg] University o f pressure 14:23:00 [facility] Heart rate 2022-07-25 107 /min University of 14:23:00 [facility] Respiratory rate 2022-07-25 18 /min University of 14:23:00 [facility] Body height 2022-07-25 160 cm University of 14:23:00 [facility] Body weight 2022-07-25 50.803 kg University of 14:23:00 [facility] BMI 2022-07-25 19.84 kg/m2 University of 14:23:00 [facility] Body temperature 2022-06-16 35.83 Linda University of 17:18:00 [facility] Body height 2022-06-16 160 cm University of 17:18:00 [facility] Body weight 2022-06-16 50.44 kg University of 17:18:00 [facility] BMI 2022-06-16 19.70 kg/m2 University of 17:18:00 [facility] Systolic blood 2022-06-16 113 mm[Hg] University of pressure 16:33:00 [facility] Diastolic blood 2022-06-16 79 mm[Hg] University o f pressure 16:33:00 [facility] Heart rate 2022-06-16 112 /min University of 16:33:00 [facility] Respiratory rate 2022-06-16 18 /min University of 16:33:00 [facility] Body height 2022-06-16 160 cm University of 16:33:00 [facility] Body weight 2022-06-16 51.256 kg University of 16:33:00 [facility] BMI 2022-06-16 20.02 kg/m2 University of 16:33:00 [facility] Systolic blood 2022-06-13 117 mm[Hg] University of pressure 16:37:00 [facility] Diastolic blood 2022-06-13 85 mm[Hg] University o f pressure 16:37:00 [facility] Heart rate 2022-06-13 118 /min University of 16:37:00 [facility] Respiratory rate 2022-06-13 18 /min University of 16:37:00 [facility] Body height 2022-06-13 160 cm University of 16:37:00 [facility] Body weight 2022-06-13 50.803 kg University of 16:37:00 [facility] BMI 2022-06-13 19.84 kg/m2 University of 16:37:00 [facility] Oxygen saturation 2022-06-01 100 /min University of in Arterial blood 05:18:00 [facility] by Pulse oximetry [place] Body temperature 2022-06-01 36.5 Linda University of 04:31:00 [facility] Systolic blood 2022-05-19 124 mm[Hg] University of pressure 16:06:00 [facility] Diastolic blood 2022-05-19 85 mm[Hg] University o f pressure 16:06:00 [facility] Heart rate 2022-05-19 103 /min University of 16:06:00 [facility] Respiratory rate 2022-05-19 18 /min University of 16:06:00 [facility] Body height 2022-05-19 160 cm University of 16:06:00 [facility] Body weight 2022-05-19 51.256 kg University of 16:06:00 [facility] BMI 2022-05-19 20.02 kg/m2 University of 16:06:00 [facility] Systolic blood 2022-05-02 115 mm[Hg] University of pressure 13:53:00 [facility] Diastolic blood 2022-05-02 80 mm[Hg] University o f pressure 13:53:00 [facility] Heart rate 2022-05-02 103 /min University of 13:53:00 [facility] Respiratory rate 2022-05-02 18 /min University of 13:53:00 [facility] Body height 2022-05-02 160 cm University of 13:53:00 [facility] Body weight 2022-05-02 51.256 kg University of 13:53:00 [facility] BMI 2022-05-02 20.02 kg/m2 University of 13:53:00 [facility] Body temperature 2022-04-21 36.22 Linda University of 20:32:00 [facility] Body height 2022-04-21 160 cm University of 20:32:00 [facility] Body weight 2022-04-21 50.349 kg University of 20:32:00 [facility] BMI 2022-04-21 19.66 kg/m2 University of 20:32:00 [facility] Systolic blood 2022-04-21 104 mm[Hg] University of pressure 15:04:00 [facility] Diastolic blood 2022-04-21 71 mm[Hg] University o f pressure 15:04:00 [facility] Heart rate 2022-04-21 110 /min University of 15:04:00 [facility] Respiratory rate 2022-04-21 18 /min University of 15:04:00 [facility] Body height 2022-04-21 157.5 cm University of 15:04:00 [facility] Body weight 2022-04-21 49.896 kg University 15:04:00 [facility] BMI 2022-04-21 20.12 kg/m2 University of 15:04:00 [facility] Systolic blood 2022-04-11 110 mm[Hg] University of pressure 03:10:00 [facility] Diastolic blood 2022-04-11 73 mm[Hg] University o f pressure 03:10:00 [facility] Heart rate 2022-04-11 88 /min [facility] of 03:10:00 [facility] Respiratory rate 2022-04-11 18 /min [facility] 03:10:00 [facility] Oxygen saturation 2022-04-11 100 /min [facility] Arterial blood 03:10:00 [facility] by Pulse oximetry [place] Body temperature 2022-04-10 36.28 Linda University of 22:10:00 [facility] Body weight 2022-04-10 49.896 kg University of 22:10:00 [facility] BMI 2022-04-10 19.80 kg/m2 University of 22:10:00 [facility] Body height 2022-04-10 158.8 cm University of 21:48:00 [facility] Systolic blood 2022-04-06 114 mm[Hg] University of pressure 13:00:00 [facility] Diastolic blood 2022-04-06 71 mm[Hg] University o f pressure 13:00:00 [facility] Heart rate 2022-04-06 92 /min University of 13:00:00 [facility] Body temperature 2022-04-06 36.78 Linda University of 13:00:00 [facility] Respiratory rate 2022-04-06 20 /min University of 13:00:00 [facility] Oxygen saturation 2022-04-06 96 /min [facility] in Arterial blood 13:00:00 [facility] by Pulse oximetry [place] Body height 2022-04-04 161.3 cm University of 23:00:18 [facility] Body weight 2022-04-04 50.349 kg University of 23:00:18 [facility] BMI 2022-04-04 19.35 kg/m2 University of 23:00:18 [facility] Systolic blood 2022-03-28 116 mm[Hg] University of pressure 14:54:00 [facility] Diastolic blood 2022-03-28 87 mm[Hg] University o f pressure 14:54:00 [facility] Heart rate 2022-03-28 113 /min University of 14:54:00 [facility] Respiratory rate 2022-03-28 18 /min University of 14:54:00 [facility] Body height 2022-03-28 160 cm University of 14:54:00 [facility] Body weight 2022-03-28 51.71 kg University of 14:54:00 [facility] BMI 2022-03-28 20.19 kg/m2 University of 14:54:00 [facility] Body temperature 2022-02-24 37 Linda University of 18:37:00 [facility] Body weight 2022-02-24 51.801 kg University of 18:37:00 [facility] BMI 2022-02-24 20.23 kg/m2 University of 18:37:00 [facility] Systolic blood 2022-02-21 133 mm[Hg] University of pressure 12:51:00 [facility] Diastolic blood 2022-02-21 49 mm[Hg] University o f pressure 12:51:00 [facility] Heart rate 2022-02-21 108 /min University of 12:51:00 [facility] Respiratory rate 2022-02-21 18 /min University of 12:51:00 [facility] Body height 2022-02-21 160 cm University of 12:51:00 [facility] Oxygen saturation 2022-01-24 98 /min [facility] in Arterial blood 00:45:00 [facility] by Pulse oximetry Branch Head 2009-07-13 51 cm University of Occipital-frontal 18:51:00 [facility] circumference by Branch Tape measure Procedures Procedure Date / Time Performing Clinician Source Performed XR PELVIS 3+ VW 2022-06-16 17:07:12 [facility] XR PELVIS 3+ VW 2022-06-16 17:07:12 [facility] CONSENT/REFUSAL FOR 2022-06-01 04:17:40 Doctor Unassigned, [facility] DIAGNOSIS AND TREATMENT [place] [facility] CONSENT/REFUSAL FOR 2022-06-01 04:17:40 Doctor Unassigned, [facility] DIAGNOSIS AND TREATMENT [place] [facility] EMERGENCY SERVICES 2022-05-31 06:01:00 Doctor Fidel, [facility] AGREEMENTS AND [place] [facility] AUTHORIZATIONS XR PELVIS 3+ VW 2022-05-19 16:43:54 [facility] XR PELVIS 3+ VW 2022-05-19 16:43:54 [facility] XR PELVIS 3+ VW 2022-04-21 20:26:51 [facility] XR HIPS 3 VW RIGHT 2022-04-11 02:02:47 Irasema Robledo [facility] XR PELVIS <3 VW 2022-04-11 02:02:47 [facility]3 VW 2022-04-11 02:02:47 [facility] 3 VW RIGHT 2022-04-11 02:02:47 Irasema Robledo [facility] POCT TEST 2022-04-11 01:46:00 Irasema Robledo [facility] POCT TEST 2022-04-11 01:46:00 Irasema Robledo [facility] URINALYSIS 2022-04-11 01:45:00 [facility] URINALYSIS 2022-04-11 01:45:00 [facility] COMP. METABOLIC PANEL 2022-04-10 23:02:00 Irasema Robledo [facility] ([id number]) Medical Branch CBC WITH DIFF 2022-04-10 23:02:00 [facility] CBC WITH DIFF 2022-04-10 23:02:00 Irasema Robledo [facility] COMP. METABOLIC PANEL 2022-04-10 23:02:00 Irasema Robledo [facility] ([id number]) Medical Branch EMERGENCY SERVICES 2022-04-10 05:01:00 Doctor Unassigned, [facility] AGREEMENTS AND [place] [facility] AUTHORIZATIONS EMERGENCY DEPARTMENT 2022-04-10 05:01:00 Doctor Unassigned, [facility] DOCUMENTS [facility] [place] XR CLAVICLE COMP 2022-04-05 19:40:00 Eyad [facility] XR CLAVICLE COMP 2022-04-05 19:40:00 Eyad [facility] URINALYSIS 2022-04-05 11:07:00 Greg [facility] URINALYSIS 2022-04-05 11:07:00 Greg [facility] CBC WITH DIFF 2022-04-05 10:24:00 Jimena Ny [facility] BASIC METABOLIC PANEL 2022-04-05 10:24:00 Anant [facility] (NA, K, CL, CO2, GLUCOSE, [facility] BUN, CREATININE, [place]) BASIC METABOLIC PANEL 2022-04-05 10:24:00 Jimena Ny [facility] (NA, K, CL, CO2, GLUCOSE, [facility] BUN, CREATININE, CA) CBC WITH DIFF 2022-04-05 10:24:00 Jimena Ny [facility] COVID-19 (ID NOW RAPID 2022-04-05 00:38:00 Anant Jimena [facility] TESTING) [facility] LAB ONLY COVID 2022-04-05 00:38:00 Jimena Ny [facility] INTERPRETATION [facility] COVID-19 (ID NOW RAPID 2022-04-05 00:38:00 Jimena Ny [facility] TESTING) [facility] LAB ONLY COVID 2022-04-05 00:38:00 Jimena Ny [facility] INTERPRETATION [facility] TROPONIN I 2022-04-05 00:25[facility] 2022-04-05 00:25:00 Chou [facility] Andrea XR SHOULDER 2+ VW RIGHT 2022-04-05 00:11[facility] KNEE 3 VW LEFT 2022-04-05 00:11:00 Chou [facility] Andrea XR FOOT 3+ VW LEFT 2022-04-05 00:11:00 Chou [facility] Andrea XR PELVIS 3+ VW 2022-04-05 00:11:00 Flo [facility] XR KNEE <3 VW RIGHT 2022-04-05 00:11:00 Flo [facility] Branch XR FOOT 3+ VW LEFT 2022-04-05 00:11:00 Chou [facility] Andrea XR KNEE <3 VW RIGHT 2022-04-05 00:11:00 Flo [facility] Medical Branch XR KNEE 3 VW LEFT 2022-04-05 00:11:00 Chou [facility] Andrea XR PELVIS 3+ VW 2022-04-05 00:11:00 Flo [facility] XR SHOULDER 2+ VW RIGHT 2022-04-05 00:11:00 [facility] HB ECG ROUTINE & RHYTHM 2022-04-04 23:08:36 [facility] Andrea HB ECG ROUTINE & RHYTHM 2022-04-04 23:08:36 José Antonio bond [facility] Andrea HB ABO GROUPING 2022-04-04 19:55:00 Nolvia Husain [facility] Branch HB ABO GROUPING 2022-04-04 19:55:00 Nolvia Husain [facility] Medical [place] CT TRAUMA HEAD WO 2022-04-04 19:10:01 Nolvia Husain [facility] CONTRAST Medical Branch CT TRAUMA CERVICAL SPINE 2022-04-04 19:10:01 Nolvia Husain [facility] CONTRAST Medical Branch CT TRAUMA THORACIC SPINE 2022-04-04 19:10:01 Nolvia Husain [facility] CONTRAST Medical Branch CT TRAUMA LUMBAR SPINE WO 2022-04-04 19:10:01 [facility] CT TRAUMA HEAD WO 2022-04-04 19:10:01 Nolvia Husain [facility] CONTRAST Medical Branch CT TRAUMA CERVICAL SPINE 2022-04-04 19:10:01 Nolvia Husain [facility] CONTRAST Medical Branch CT TRAUMA THORACIC SPINE 2022-04-04 19:10:01 Nolvia Husain [facility] of [facility] CONTRAST Medical Branch CT TRAUMA LUMBAR SPINE WO 2022-04-04 19:10:01 [facility]via [facility] [place] CONTR[facility] Medical Branch CT TRAUMA THORAX W 2022-04-04 19:08:26 Nolvia Husain [facility] CONTRAST Medical Branch CT TRAUMA ABDOMEN PELVIS 2022-04-04 19:08:26 Nolvia Husain [facility] CONTRAST Medical Branch CT TRAUMA THORAX W 2022-04-04 19:08:26 Nolvia Husain [facility] CONTRAST Medical Branch CT TRAUMA ABDOMEN PELVIS 2022-04-04 19:08:26 Nolvia Husain [facility] CONTRAST Medical Branch ABORH CONFIRMATION (LAB 2022-04-04 19:02:00 Nolvia Husain [facility] ONLY) Medical Branch ABORH CONFIRMATION (LAB 2022-04-04 19:02:00 Nolvia Husain [facility] ONLY) Medical Branch LIPASE 2022-04-04 18:35:00 Nolvia Husain [facility] TEST, SERUM 2022-04-04 18:35:00 Nolvia Husain [facility] COMP. METABOLIC PANEL 2022-04-04 18:35:00 Nolvia Husain [facility] ([id number]) [facility] COMP. METABOLIC PANEL 2022-04-04 18:35:00 Nolvia Husain [facility] ([id number]) Medical Branch LIPASE 2022-04-04 18:35:00 Nolvia Husain [facility] TEST, SERUM 2022-04-04 18:35:00 Nolvia Husain [facility] CBC WITH DIFF 2022-04-04 18:20:00 Rodrigue Nolvia [facility] CBC WITH DIFF 2022-04-04 18:20:00 Rodrigue Nolvia [facility] EMERGENCY SERVICES 2022-04-04 05:01:00 Doctor Unassigned, [facility] AGREEMENTS AND [place] [facility] AUTHORIZATIONS EMERGENCY DEPARTMENT 2022-04-04 05:01:00 Doctor Unassigned, [facility] DOCUMENTS [place] [facility] EMERGENCY SERVICES 2022-04-04 05:01:00 Doctor Unassigned, [facility] AGREEMENTS AND [place] [facility] AUTHORIZATIONS EMERGENCY DEPARTMENT 2022-04-04 05:01:00 Doctor Unassigned, [facility] DOCUMENTS [place] [facility] POCT TEST 2022-04-01 04:37:00 Deonna Melendrez [facility] POCT TEST 2022-04-01 04:37:00 Deonna Melendrez [facility] [place] LIPASE 2022-04-01 04:36:00 Deonna Melendrez [facility] COMP. METABOLIC PANEL 2022-04-01 04:36:00 Deonna Melendrez [facility] ([id number]) [facility] CBC WITH DIFF 2022-04-01 04:36:00 Deonna Melendrez [facility] URINALYSIS 2022-04-01 04:36:00 Deonna Melendrez [facility] CBC WITH DIFF 2022-04-01 04:36:00 Deonna Melendrez [facility] COMP. METABOLIC PANEL 2022-04-01 04:36:00 Deonna Melendrez [facility] ([id number]) Medical Branch URINALYSIS 2022-04-01 04:36:00 Deonna Melendrez [facility] LIPASE 2022-04-01 04:36:00 Deonna Melendrez [facility] NOTICE OF PRIVACY 2022-04-01 03:37:12 Doctor Fidel, [facility] NOTICE OF PRIVACY 2022-04-01 03:37:12 Doctor Fidel, [facility] [place] CONSENT/REFUSAL FOR 2022-04-01 03:36:55 Doctor Parra [facility] DIAGNOSIS AND TREATMENT [facility] [place] CONSENT/REFUSAL FOR 2022-04-01 03:36:55 Doctor Parra [facility] DIAGNOSIS AND TREATMENT [facility] EMERGENCY SERVICES 2022-03-31 05:01:00 Doctor Parra [facility] AGREEMENTS AND [facility] AUTHORIZATIONS SARS-COV-2 COVID-19 2022-03-17 16:49:14 Doctor Parra [facility] MIKE-SUCROSE VACCINE 12 [facility] YRS+, BIVALENT 0.3ML, IM, (PFIZER ARITA TOP BOOSTER) SARS-COV-2 COVID-19 2022-03-17 16:49:14 Doctor Parra [facility] MIKE-SUCROSE VACCINE 12 [facility] YRS+, BIVALENT 0.3ML, IM, (PFIZER ARITA TOP BOOSTER) XR PELVIS 3+ VW 2022-02-24 18:13:00 Bouchra Mcintosh [facility] EXTERNAL PROVIDER RECORDS 2022-02-22 05:01:00 Doctor Parra [facility] EMERGENCY SERVICES 2022-01-23 05:01:00 Doctor Parra [facility] AGREEMENTS AND [facility] AUTHORIZATIONS EMERGENCY DEPARTMENT 2022-01-23 05:01:00 Doctor Parra [facility] DOCUMENTS [facility] [place] Encounters Start End Encounter Admission Attending Care Care Encounter Source Date/Time Date/Time Type Type Clinicians Facility Department ID 2021-11-02 Outpatient [facility] [id number] [place] 11:00:33 [id number] [facility] 2021-07-09 Inpatient [facility] [id number] [facility] 12:46:00 14 2021-05-25 Inpatient [facility] [id number] [facility] 23:19:00 94 2021-04-[address] [facility] [id number] Univers 23:08:18 ity of [facility] 2022-08-22 2022-08-22 Outpatient R SELF, [facility] [id number] Univers 10:15:00 12:05:25 JAMES braxton [facility] 2022-08-22 2022-08-22 Travel 1.2.840.1 1.2.352.634 8114 [id number] Univers 00:00:00 00:00:00 67370.1.1 350.1.13.10 ity of 3.104.2.7 [place].698 [place]3.9[place] 084.8 [facility] .[facility] [place] 2022-07-25 2022-07-25 Outpatient R SELF, [facility] [id number] Univers 08:45:00 10:27:30 JAMES anderson [facility] 2022-07-25 2022-07-25 Travel 1.2.840.1 1.2.247.573 [id number] [id number] Univers 00:00:00 00:00:00 11423.1.1 350.1.13.10 ity of 3.104.2.7 [place].3.698 [place]3.2544[place] 084.8 [facility] [facility] .[facility] [place] 2022-07-15 2022-07-15 Emergency EM Ramirez, [facility]ATB EO3 [id number] [facility] 19:20:00 21:08:00 Jose Moncada [facility] [place] 2022-07-04 2022-07-04 Emergency EM Eric Moore HCAPM GAYLA LA00 [id number] [facility] 16:22:00 17:00:00 83 [facility] 2022-06-16 2022-06-16 [facility] 1.2.840.6 [id number] Univers 10:58:02 23:59:00 Encounter Bouchra 78207.1.1 it y of 3.104.2.7 [place] .3.171603 [facility] l .[facility] [place] 2022-06-16 2022-06-16 [facility] [id number] Univers 10:20:00 11:48:13 BOUCHRA ity of [facility] 2022-06-16 2022-06-16 Office Arnaldo, 1.2.840.7 [id number] Univers 10:20:00 11:48:13 Visit Bouchra 90113.1.1 ity of 3.104.2.7 [place] .3.778735 [facility] l .[facility] [place] 2022-06-16 2022-06-16 Travel 1.2.840.1 1.2.636.474 2490 [id number] Univers 00:00:00 00:00:00 22492.1.1 350.1.13.10 ity of 3.104.2.7 [place].3.698 [place]3.7834[place] 084.8 [facility] l .[facility] [place] 2022-06-13 2022-06-13 [facility] [id number] Univers 11:00:00 11:34:17 JAMES ity o f [facility] 2022-06-13 2022-06-13 Travel 1.2.840.1 1.2.991.743 8730 2526 Univers 00:00:00 00:00:00 06522.1.1 350.1.13.10 ity of 3.104.2.7 [place].3.698 [place] .3.842122 084.8 [facility] l .[facility] [place] 2022-05-31 2022-06-01 Emergency X PARVIN [facility] ERT [id number] Univers 22:37:00 00:11:00 DEONNA ity of [facility] 2022-05-31 2022-06-01 Emergency Parvin, 1.2.840.7 [id number] Univers 22:37:00 00:11:00 Deonna Murillo 65069.1.1 ity of 3.104.2.7 [place] .3.411070 [facility]ica l .8 [place] 2022-05-31 2022-05-31 Travel 1.2.840.1 1.2.413.559 1379 [id number] Univers 00:00:00 00:00:00 66205.1.1 350.1.13.10 ity of 3.104.2.7 [place]7.3.698 [place]3.376920 084.8 [facility] l .8 [place] 2022-05-23 2022-05-23 Outpatient R [facility] [id number] Univers 10:15:00 10:15:00 JAMES erickson o [facility] 2022-05-19 2022-05-19 [facility], 1.2.840.3 [id number] Univers 10:33:33 23:59:00 Encounter Bouchra 99624.1.1 it y of 3.104.2.7 [place] .3.931951 Medica l .[facility] [place] 2022-05-19 2022-05-19 [facility], 1.2.840.5 [id number] [facility] 12:50:00 12:50:00 Visit Bouchra 07722.1.1 ity of 3.104.2.7 [place] .3.295656 Medica l .8 [place] 2022-05-19 2022-05-19 Outpatient R [facility] [id number] [facility] 12:50:00 12:42:46 BOUCHRA ity of [facility] 2022-05-19 2022-05-19 Travel 1.2.840.1 1.2.365.700 2916 [id number] Univers 00:00:00 00:00:00 74458.1.1 350.1.13.10 ity of 3.104.2.7 [place]7.3.698 [place] .3.818390 084.8 [facility] l .[facility] [place] 2022-05-02 2022-05-02 Outpatient R [facility] [id number] Univers 08:45:00 09:32:43 JAMES braxton f [facility] 2022-05-02 2022-05-02 Travel 1.2.840.1 1.2.511.527 4243 [id number] Univers 00:00:00 00:00:00 45289.1.1 350.1.13.10 ity of 3.104.2.7 [place]7.3.698 [place] .3.799075 084.8 [facility] l .[facility] [place] 2022-04-21 2022-04-[address] [facility] [id number] Univers 15:08:38 23:59:00 BOUCHRA ity of [facility] 2022-04-21 2022-04-21 [facility], 1.2.840.3 [id number] Univers 15:08:38 23:59:00 Encounter Bouchra 77360.1.1 it y of 3.104.2.7 [place] .3.496671 Medica l .[facility] [place] 2022-04-21 2022-04-21 [facility], 1.2.840.3 [id number] Univers 15:20:00 16:19:45 Visit Bouchra 66402.1.1 ity of 3.104.2.7 [place] .3.735341 Medica l .8 [facility] 2022-04-21 2022-04-21 Travel 1.2.840.1 1.2.397.299 0949 0847 Univers 00:00:00 00:00:00 96643.1.1 350.1.13.10 ity of 3.104.2.7 [place]7.3.698 [place] .3.575916 084.8 [facility] l .[facility] [place] 2022-04-10 2022-04-10 Emergency X ROBLEDO, [facility] ERT [id number] Univers 17:11:00 22:14:00 IRASEMA ity of [facility] 2022-04-10 2022-04-10 Emergency Robledo, 1.2.840.0 [id number] Univers 17:11:00 22:14:00 Irasema 98354.1.1 ity of 3.104.2.7 [place] .3.956121 Medica l .8 [facility] 2022-04-10 2022-04-10 Urgent MariShivani gardner J 1.2.840.1 [id number] Univers 16:40:00 18:22:07 Care [facility] 20521.1.1 ity of 3.104.2.7 [place] .3.952396 Medica l .[facility] [place] 2022-04-10 2022-04-[address] [facility] [id number] Univers 16:40:00 16:40:00 SHIVANI ity o f [facility] 2022-04-10 2022-04-10 Travel 1.2.840.1 1.2.128.567 3694 4834 Univers 00:00:00 00:00:00 65470.1.1 350.1.13.10 ity of 3.104.2.7 [place]7.3.698 [place]3.526622 084.8 [facility] l .[facility] [place] 2022-04-08 2022-04-08 Transition Moise, 1.2.840.7 [id number] Univers 00:00:00 00:00:00 of Care Negrita 44839.1.1 i ty of 3.104.2.7 [place] .3.072691 [facility] l .[facility] [place] 2022-04-04 2022-04-07 Hospital Person, 1.2.840.7 [id number] Univers 17:33:00 17:00:00 Encounter Keagan 57056.1.1 it y of 3.104.2.7 [place] .3.616545 [facility] l .[facility] [place] 2022-04-06 2022-04-06 [facility], 1.2.840.0 [id number] Univers 00:00:00 00:00:00 Management Care 77132.1.1 i ty of Transition 3.104.2.7 Harley as .3.095619 Medica l .8 [place] 2022-04-04 2022-04-04 Emergency X RODRIGUE [facility] ERT [id number] Univers 12:41:00 16:56:00 NOLVIA ity of [facility] 2022-04-04 2022-04-04 Emergency [facility] [id number] Univers 12:41:00 16:56:00 NOLVIA ity of [facility] 2022-04-04 2022-04-04 Emergency Husain, 1.2.840.1 [id number] [id number] Univers 12:41:00 16:56:00 Nolvia 54959.1.1 ity of 3.104.2.7 [place] .3.354945 Medica l .8 [place] 2022-04-04 2022-04-04 Travel 1.2.840.1 1.2.034.966 3482 3840 Univers 00:00:00 00:00:00 33516.1.1 350.1.13.10 ity of 3.104.2.7 [place]7.3.698 [place]3.751132 084.8 Med[place] l .8 [place] 2022-03-31 2022-04-01 Emergency [facility] [id number] Univers 22:46:00 01:29:00 DEONNA ity of [facility] 2022-03-31 2022-04-01 Emergency Parvin, 1.2.840.5 [id number] Univers 22:46:00 01:29:00 Deonna Murillo 36135.1.1 ity of 3.104.2.7 [place] .3.336138 Medica l .8 [place] 2022-03-31 2022-03-31 Orders Doctor 1.2.840.2 [id number] Univers 00:00:00 00:00:00 Only Unassigned, 85658.1.1 ity of [place] 3.104.2.7 [place] .3.507353 Medica l .8 [place] 2022-03-31 2022-03-31 Travel 1.2.840.1 1.2.574.784 3363 0137 Univers 00:00:00 00:00:00 86822.1.1 350.1.13.10 ity of 3.104.2.7 [place]7.3.698 [place] .3.983494 084.8 Medica l .8 [facility] 2022-03-28 2022-03-28 Outpatient R REYNALDO, [facility] [id number] Univers 10:15:00 12:05:24 JAMES ity o f [facility] 2022-03-28 2022-03-28 Travel 1.2.840.1 1.2.460.769 4910 [id number] Univers 00:00:00 00:00:00 39032.1.1 350.1.13.10 ity of 3.104.2.7 [place]7.3.698 [place] .3.274461 084.8 Med[facility] l .8 [place] 2022-03-17 2022-03-17 Imm/Inj Vignesh Mack 1.2.840.1 [id number] Univers 11:30:00 12:25:54 Visit Janice Orosco 94055.1.1 ity of 3.104.2.7 [place] .3.501447 Medica l .8 [place] 2022-03-17 2022-03-17 Outpatient R FREDERICK, [facility] [id number] Univers 10:30:00 11:13:04 VIGNESH ity of [facility] 2022-03-17 2022-03-17 Travel 1.2.840.1 1.2.372.670 4247 0034 Univers 00:00:00 00:00:00 60085.1.1 350.1.13.10 ity of 3.104.2.7 [place]7.3.698 [place] .3.026640 084.8 [facility] l .[facility] [place] 2022-02-24 2022-02-24 [facility], 1.2.840.2 [id number] Univers 13:02:19 23:59:00 Encounter Bouchra 05667.1.1 it y of 3.104.2.7 [place] .3.413024 Medica l .8 [place] 2022-02-24 2022-02-24 [facility], 1.2.840.0 [id number] Univers 13:02:19 23:59:00 Encounter Bouchra 79808.1.1 it y of 3.104.2.7 [place] .3.246413 Medica l .8 [place] 2022-02-24 2022-02-[address] [facility] [id number] Univers 13:00:00 14:33:28 BOUCHRA ity of [facility] 2022-02-24 2022-02-24 Office Arnaldo, 1.2.840.2 [id number] [id number] Univers 13:00:00 14:33:28 Visit Bouchra 91903.1.1 ity of 3.104.2.7 [place] .3.375140 Medica l .8 [place] 2022-02-24 2022-02-24 [facility] [id number] Univers 13:00:00 13:00:00 BOUCHRA ity of [facility] 2022-02-24 2022-02-24 Travel 1.2.840.1 1.2.332.266 6723 4498 Univers 00:00:00 00:00:00 39361.1.1 350.1.13.10 ity of 3.104.2.7 [place]7.3.698 [place] .3.799804 084.8 [facility] l .8 [place] 2022-02-22 2022-02-22 Orders Doctor 1.2.840.0 [id number] Univers 00:00:00 00:00:00 Only Unassigned, 15267.1.1 ity of [place] 3.104.2.7 [place] .3.473245 Medica l .8 [place] 2022-02-22 2022-02-22 Orders Doctor 1.2.840.4 [id number] Univers 00:00:00 00:00:00 Only Unassigned, 22988.1.1 ity of [place] 3.104.2.7 [place] .3.189170 Medica l .8 [place] 2022-02-21 2022-02-[address] [facility] [id number] Univers 08:00:00 08:48:33 JAMES ity o f [facility] 2022-02-21 2022-02-21 Travel 1.2.840.1 1.2.725.510 1145 9562 Univers 00:00:00 00:00:00 98360.1.1 350.1.13.10 ity of 3.104.2.7 4.[place]7.3.698 [place] .3.476492 084.8 Medica l .8 [facility] 2022-02-21 2022-02-21 Travel 1.2.840.1 1.2.977.053 0979 9562 Univers 00:00:00 00:00:00 53357.1.1 350.1.13.10 ity of 3.104.2.7 4.[place].7.3.698 [place] .3.457484 084.8 Med[facility] l .8 [facility] 2022-01-23 2022-01-23 Emergency X CHECO, K [facility] ERT [id number] Univers 19:42:00 21:04:00 ity of [facility] 2022-01-23 2022-01-23 Emergency Checo, K 1.2.840.4 [id number] Univers 19:42:00 21:04:00 Bree 81627.1.1 ity of 3.104.2.7 [place] .3.938419 Medica l .8 [facility] 2022-01-23 2022-01-23 Emergency Checo, K 1.2.840.8 [id number] Univers 19:42:00 21:04:00 Bree 86437.1.1 ity of 3.104.2.7 [place] .3.999384 Medica l .8 [facility] 2022-01-23 2022-01-23 Travel 1.2.840.1 1.2.964.251 8308 2965 Univers 00:00:00 00:00:00 35142.1.1 350.1.13.10 ity of 3.104.2.7 4.2.7.3.698 [place] .3.653998 084.8 Medica l .8 [facility] 2022-01-23 2022-01-23 Travel 1.2.840.1 1.2.563.680 1015 2965 Univers 00:00:00 00:00:00 98414.1.1 350.1.13.10 ity of 3.104.2.7 4.2.7.3.698 [place] .3.853540 084.8 Medica l .8 [place] 2022-01-17 2022-01-17 Outpatient R SELF, [facility] [id number] Univers 10:15:00 11:23:04 JAMES erickson o f [facility] 2022-01-17 2022-01-17 Outpatient R SELF, [facility] [id number] Univers 10:15:00 11:23:04 JAMES erickson o f [facility] 2022-01-17 2022-01-17 Travel 1.2.840.1 1.2.807.069 0002 6960 [facility] 00:00:00 00:00:00 48427.1.1 350.1.13.10 ity of 3.104.2.7 4.[place].7.3.698 [place] .3.604161 084.8 Med[facility] l .8 [place] 2022-01-17 2022-01-17 Travel 1.2.840.1 1.2.830.702 5883 6960 Univers 00:00:00 00:00:00 06416.1.1 350.1.13.10 ity of 3.104.2.7 4.2.7.3.698 [place] .3.073254 084.8 [facility] l .[facility] [place] 2021-12-31 2021-12-31 Outpatient R FISH, ASH [facility] [id number] Univers 16:00:00 17:22:54 ity of [facility] 2021-12-31 2021-12-31 Office Fish, Ash 1.2.840.1 [id number] Univers 16:00:00 17:22:54 Visit Maggie Brooks 45194.1.1 ity of 3.104.2.7 [place] .3.710057 Medica l .8 [place] 2021-12-31 2021-12-31 Office Fish, Ash 1.2.840.4 [id number] Univers 16:00:00 17:22:54 Visit Maggie Brooks 05519.1.1 ity of 3.104.2.7 [place] .3.900559 Medica l .8 [place] 2021-12-31 2021-12-31 Outpatient R ASH RAMIREZ [facility] [id number] Univers 16:00:00 16:00:00 ity of [facility] 2021-12-31 2021-12-31 Travel 1.2.840.1 1.2.179.636 4470 7179 Univers 00:00:00 00:00:00 33554.1.1 350.1.13.10 ity of 3.104.2.7 4.2.7.3.698 [place] .3.839734 084.8 Medica l .8 [place] 2021-12-31 2021-12-31 Travel 1.2.840.1 1.2.612.182 3298 7179 Univers 00:00:00 00:00:00 10484.1.1 350.1.13.10 ity of 3.104.2.7 4.2.7.3.698 [place] .3.840585 084.8 Medica l .8 [place] 2021-12-20 2021-12-20 Outpatient R REYNALDO, [facility] [id number] Univers 10:30:00 11:58:18 JAMES ity o f [facility] 2021-12-20 2021-12-20 Travel 1.2.840.1 1.2.244.128 5444 9777 Univers 00:00:00 00:00:00 30069.1.1 350.1.13.10 ity of 3.104.2.7 4.2.7.3.698 [place] .3.901551 084.8 [facility] l .8 [place] 2021-12-20 2021-12-20 Travel 1.2.840.1 1.2.816.667 5759 9777 Univers 00:00:00 00:00:00 47330.1.1 350.1.13.10 ity of 3.104.2.7 4.2.7.3.698 [place] .3.075191 084.8 [facility] l .8 [place] 2021-12-20 2021-12-20 Travel 1.2.840.1 1.2.700.642 8390 9777 Univers 00:00:00 00:00:00 97548.1.1 350.1.13.10 ity of 3.104.2.7 4.2.7.3.698 [place] .3.674612 084.8 Medica l .8 [place] 2021-12-13 2021-12-13 [facility] [id number] Univers 08:00:00 08:00:00 HANDY ity [facility] 2021-12-06 2021-12-06 Urgent Shivani Guerra 1.2.840.1 [id number] Univers 12:00:00 12:16:45 Akiko Gonzalez 80785.1.1 ity of 3.104.2.7 [place] .3.563469 Medica l .8 [place] 2021-12-06 2021-12-06 Urgent Shivani Guerra 1.2.840.1 84690 [id number] Univers 12:00:00 12:16:45 Akiko Gonzalez 41425.1.1 ity of 3.104.2.7 [place] .3.290951 Medica l .8 [place] 2021-12-06 2021-12-06 Outpatient [facility] [id number] Univers 12:00:00 12:16:45 AKIKO itadrian [facility] 2021-12-06 2021-12-06 Urgent Shivani Guerra 1.2.840.1 49264 57004 [id number] Univers 12:00:00 12:16:45 Akiko Gonzalez 22319.1.1 ity of 3.104.2.7 [place] .3.522142 Medica l .8 [place] 2021-12-06 2021-12-06 Travel 1.2.840.1 1.2.597.891 4244 2730 Univers 00:00:00 00:00:00 11596.1.1 350.1.13.10 ity of 3.104.2.7 4.2.7.3.698 [place] .3.019830 084.8 Medica l .8 [place] 2021-12-06 2021-12-06 Travel 1.2.840.1 1.2.150.521 3431 2730 Univers 00:00:00 00:00:00 43130.1.1 350.1.13.10 ity of 3.104.2.7 4.2.7.3.698 [place] .3.111703 084.8 Medica l .8 [place] 2021-12-06 2021-12-06 Travel 1.2.840.1 1.2.929.295 5785 2730 Univers 00:00:00 00:00:00 06941.1.1 350.1.13.10 ity of 3.104.2.7 4.2.7.3.698 [place] .3.410940 084.8 Medica l .8 [place] 2021-11-26 2021-11-26 Office Fish, Ash 1.2.840.2 [id number] Univers 15:00:00 15:40:48 Visit 44061.1.1 ity of 3.104.2.7 [place] .3.193603 Medica l .8 [place] 2021-11-26 2021-11-26 Outpatient R FISH, ASH [facility] [id number] Univers 15:00:00 15:40:48 ity of [facility] 2021-11-26 2021-11-26 Office Fish, Ash 1.2.840.1 [id number] Univers 15:00:00 15:40:48 Visit 74881.1.1 ity of 3.104.2.7 [place] .3.551489 Medica l .8 [place] 2021-11-26 2021-11-26 Outpatient R FISH, A[facility] [id number] Univers 15:00:00 15:00:00 ity of [facility] 2021-11-26 2021-11-26 Travel 1.2.840.1 1.2.788.682 3040 4215 Univers 00:00:00 00:00:00 05016.1.1 350.1.13.10 ity of 3.104.2.7 4.2.7.3.698 [place] .3.453086 084.8 Medica l .8 [place] 2021-11-26 2021-11-26 Travel 1.2.840.1 1.2.784.547 4893 4215 Univers 00:00:00 00:00:00 28400.1.1 350.1.13.10 ity of 3.104.2.7 4.2.7.3.698 [place] .3.303083 084.8 Medica l [address] [place] [address] 2021-11-23 2021-11-23 Outpatient R ASH RAMIREZ [facility] [id number] Univers 14:00:00 14:00:00 ity of [facility] 2021-11-19 2021-11-19 [facility], 1.2.840.1 [id number] Univers 17:58:13 23:59:00 Encounter Rania 04953.1.1 it y of 3.104.2.7 [place] .3.680811 Medica [address] 2021-11-19 2021-11-[address] [facility] [id number] Univers 17:58:13 23:59:00 RANIA ity of [facility] 2021-11-19 2021-11-19 [facility] 1.2.509.647 9156 [id number] Univers 17:58:13 23:59:00 Encounter [employer] 350.1.13.10 ity of [place] 4.2.7.2.686 Harley as OLIVIA?BLEA [id number] [place] aidee [place] [address] [place] [facility] 2021-11-19 2021-11-19 [facility], 1.2.840.3 [id number] Univers 17:58:13 23:59:00 Encounter Rania 95360.1.1 it y of 3.104.2.7 [place] .3.237318 Medica l .8 [place] 2021-11-19 2021-11-19 Urgent Ebrahim, 1.2.840.3 [id number] Univers 17:20:00 18:04:46 Care Vania 43288.1.1 ity of 3.104.2.7 [place] .3.976271 Medica l .8 [place] 2021-11-19 2021-11-19 Urgent Ebrahim, [facility] 1.2.840.114 [id number] Univers 17:20:00 18:04:46 Care Vania [facility] 350.1.13.10 it y of [place] 4.2.7.2.686 Harley as OLIVIA?BLEA [id number] [place] dical [address] MEDICAL OFFICE BUILDING 2021-11-19 2021-11-19 Urgent Ebrahim, 1.2.840.4 [id number] Univers 17:20:00 18:04:46 Care Vania 30567.1.1 ity of 3.104.2.7 [place] .3.179923 Medica l .8 [place] 2021-11-19 2021-11-19 Travel 1.2.840.1 1.2.984.912 0169 4086 Univers 00:00:00 00:00:00 64553.1.1 350.1.13.10 ity of 3.104.2.7 [place].3.698 [place] .3.080180 084.8 Medica l .8 [place] 2021-11-19 2021-11-19 Travel 1.2.840.1 1.2.032.978 [id number] 4086 Univers 00:00:00 00:00:00 12969.1.1 350.1.13.10 ity of 3.104.2.7 4.[place]7.3.698 [place] .3.963207 084.8 Medica l .8 [place] 2021-11-17 2021-11-[address] [facility] [id number] Univers 14:45:00 14:45:00 ity of [facility] 2021-11-17 2021-11-[address] [facility] [id number] Univers 14:45:00 14:45:00 ity of [facility] 2021-11-16 2021-11-16 Telephone Lucinda Wills 1.2.840.0 [id number] Univers 00:00:00 00:00:00 Cam 68762.1.1 ity of 3.104.2.7 [place] .3.910595 Medica l .8 [place] 2021-11-16 2021-11-16 Telephone Lucinda Wills 1.2.840.5 [id number] Univers 00:00:00 00:00:00 Cam 04418.1.1 ity of 3.104.2.7 [place] .3.970540 Medica l .8 [place] 2021-11-16 2021-11-16 Telephone Lucinda Wills 1.2.840.5 [id number] Univers 00:00:00 00:00:00 Cam 57913.1.1 ity of 3.104.2.7 [place] .3.025736 Medica l .8 [place] 2021-11-08 2021-11-08 Outpatient R REYNALDO, [facility] [id number] Univers 11:15:00 11:40:32 JMAES erickson o f [facility] 2021-11-08 2021-11-08 Travel 1.2.840.1 1.2.333.225 0708 [id number] Univers 00:00:00 00:00:00 64125.1.1 350.1.13.10 ity of 3.104.2.7 4.[place]7.3.698 [place] .3.159471 084.8 Medica l .8 [place] 2021-11-08 2021-11-08 Travel 1.2.840.1 1.2.328.140 0365 9142 Univers 00:00:00 00:00:00 66732.1.1 350.1.13.10 ity of 3.104.2.7 4.[place]7.3.698 [place] .3.922350 084.8 Medica l .8 [place] 2021-11-08 2021-11-08 Travel 1.2.840.1 1.2.791.010 1645 9142 Univers 00:00:00 00:00:00 37310.1.1 350.1.13.10 ity of 3.104.2.7 4.[place]7.3.698 [place] .3.811605 084.8 Medica l .8 [place] 2021-10-29 2021-10-29 Office Lucinda Wills 1.2.840.7 [id number] Univers 13:00:00 13:28:21 [place] Cam 33270.1.1 ity of 3.104.2.7 [place] .3.370036 Medica l .8 [place] 2021-10-29 2021-10-29 Office Lucinda Wills 1.2.840.1 [id number] Univers 13:00:00 13:28:21 Visit Cam 68496.1.1 ity of 3.104.2.7 [place] .3.764273 Medica l .8 [place] 2021-10-29 2021-10-29 Outpatient R LUCINDA WILLS [facility] [id number] Univers 13:00:00 13:28:21 ity of [facility] 2021-10-29 2021-10-29 Office Lucinda Wills 1.2.840.0 [id number] Univers 13:00:00 13:28:21 Visit Cam 78490.1.1 ity of 3.104.2.7 [place] .3.406053 Medica l .8 [place] 2021-10-29 2021-10-29 Outpatient R LUCINDA WILLS [facility] [id number] Univers 13:00:00 13:00:00 ity of [facility] 2021-10-29 2021-10-29 Outpatient R LUCINDA [facility] [id number] Univers 13:00:00 13:00:00 ity of [facility] 2021-10-29 2021-10-29 Travel 1.2.840.1 1.2.056.216 [id number] Univers 00:00:00 00:00:00 51732.1.1 350.1.13.10 ity of 3.104.2.7 4.[place]7.3.698 [place] .3.519969 084.8 Medica l .8 [place] 2021-10-29 2021-10-29 Travel 1.2.840.1 1.2.263.872 0351 6547 Univers 00:00:00 00:00:00 60609.1.1 350.1.13.10 ity of 3.104.2.7 4.[place]7.3.698 [place] .3.766050 084.8 Medica l .8 [place] 2021-10-29 2021-10-29 Travel 1.2.840.1 1.2.473.385 2133 6547 [facility] 00:00:00 00:00:00 56155.1.1 350.1.13.10 ity of 3.104.2.7 4.2.7.3.698 [place] .3.504112 084.8 [facility] .[facility] [place] 2021-10-27 2021-10-27 Outpatient R SHIVANI VAUGHN [facility] [id number] Univers 14:30:00 15:05:35 SHIVANI VAUGHN [facility] 2021-10-27 2021-10-[address] [facility] [id number] Univers 14:30:00 14:30:00 SHIVANI VAUGHN [facility] 2021-10-27 2021-10-27 Chimney Supervisor Brick Pat Patel 1.2.840.1 [id number] [facility] 12:30:00 12:45:00 Visit Pcp-Lab 28851.1.1 ity of 3.104.2.7 [place] .3.356375 Medica l .8 [place] 2021-10-27 2021-10-27 Chimney Supervisor Brick Pat Patel 1.2.840.1 [id number] [facility] 12:30:00 12:45:00 Visit Pcp-Lab 58894.1.1 ity of 3.104.2.7 [place] .3.561868 Medica l .8 [place] 2021-10-27 2021-10-27 Chimney Supervisor Brick Pat Patel 1.2.840.1 [id number] [facility] 12:30:00 12:45:00 Visit Pcp-Lab 06563.1.1 ity of 3.104.2.7 [place] .3.898762 Medica l .8 [place] 2021-10-27 2021-10-27 Chimney Supervisor Brick Pat Patel 1.2.840.1 [id number] [facility] 12:30:00 12:45:00 Visit Pcp-Lab 30766.1.1 ity of 3.104.2.7 [place] .3.092377 Medica l .8 [place] 2021-10-27 2021-10-27 Travel 1.2.840.1 1.2.539.074 7244 7104 [facility] 00:00:00 00:00:00 89519.1.1 350.1.13.10 ity of 3.104.2.7 4.[place]7.3.698 [place]3.033034 084.8 Med[place] l .8 [place] 2021-10-27 2021-10-27 Travel 1.2.840.1 1.2.650.792 8283 7104 [facility] 00:00:00 00:00:00 29255.1.1 350.1.13.10 ity of 3.104.2.7 4.[place].7.3.698 [place]3.549830 084.8 [place] l .8 [place] 2021-10-27 2021-10-27 Travel 1.2.840.1 1.2.164.959 6904 7104 [facility] 00:00:00 00:00:00 97701.1.1 350.1.13.10 ity of 3.104.2.7 4.[place].7.3.698 [place] .3.171314 084.8 Med[place] l .8 [place] 2021-10-27 2021-10-27 Travel 1.2.840.1 1.2.315.458 3285 7104 [facility] 00:00:00 00:00:00 25972.1.1 350.1.13.10 ity of 3.104.2.7 4.[place].7.3.698 [place]3.343867 084.8 Med[place] l .8 [place] 2021-10-06 2021-10-06 Outpatient R RODERICK SHIVANI [facility] [id number] Univers 15:15:00 16:31:02 [facility] 2021-10-06 2021-10-06 Travel 1.2.840.1 1.2.866.300 6927 3199 Univers 00:00:00 00:00:00 57731.1.1 350.1.13.10 ity of 3.104.2.7 4.2.7.3.698 [place] .3.724528 084.8 Med[place] l .8 [place] 2021-10-06 2021-10-06 Travel 1.2.840.1 1.2.618.823 7624 3199 Univers 00:00:00 00:00:00 69097.1.1 350.1.13.10 ity of 3.104.2.7 4.2.7.3.698 [place] .3.965087 084.8 Med[place] l .8 [place] 2021-10-06 2021-10-06 Travel 1.2.840.1 1.2.809.294 5152 3199 [facility] 00:00:00 00:00:00 94760.1.1 350.1.13.10 ity of 3.104.2.7 4.2.7.3.698 [place] .3.917870 084.8 Med[place] l .8 [place] 2021-09-13 2021-09-13 Outpatient R REYNALDO, [facility] [id number] Univers 11:00:00 11:00:00 JAMES erickson o f [facility] 2021-09-02 2021-09-[address] [facility] [id number] Univers 13:00:00 13:00:00 HONORIO erickson [facility] 2021-09-02 2021-09-[address] [facility] [id number] Univers 13:00:00 13:00:00 HONORIO erickson [facility] 2021-09-02 2021-09-02 Travel 1.2.840.1 1.2.445.667 3526 3611 Univers 00:00:00 00:00:00 19964.1.1 350.1.13.10 ity of 3.104.2.7 4.2.7.3.698 [place] .3.332888 084.8 Med[place] l .8 [place] 2021-09-02 2021-09-02 Travel 1.2.840.1 1.2.423.467 3201 3611 Univers 00:00:00 00:00:00 45347.1.1 350.1.13.10 ity of 3.104.2.7 4.2.7.3.698 [place] .3.092636 084.8 Med[facility] l .8 [place] 2021-09-02 2021-09-02 Travel 1.2.840.1 1.2.079.334 9441 361 Univers 00:00:00 00:00:00 25660.1.1 350.1.13.10 ity of 3.104.2.7 4.2.7.3.698 [place] .3.390038 084.8 Med[facility] l .8 [place] 2021-08-26 2021-08-26 [facility] [id number] Univers 12:59:32 23:59:00 BOUCHRA erickson of [facility] 2021-08-26 2021-08-26 [facility], 1.2.840.5 [id number] Univers 12:59:32 23:59:00 Encounter Bouchra 14825.1.1 it y of 3.104.2.7 [place] .3.022715 Medica l .8 [place] 2021-08-26 2021-08-26 [facility], 1.2.840.7 [id number] Univers 12:59:32 23:59:00 Encounter Bouchra 16675.1.1 it y of 3.104.2.7 [place] .3.728866 Medica l .8 [place] 2021-08-26 2021-08-26 [facility], 1.2.840.9 [id number] Univers 12:59:32 23:59:00 Encounter Bouchra 86686.1.1 it y of 3.104.2.7 [place] .3.133626 Medica l .8 [place] 2021-08-26 2021-08-26 [facility] [id number] Univers 13:00:00 13:47:55 BOUCHRA ity of [facility] 2021-08-26 2021-08-26 Office [facility], 1.2.840.1 [id number] [id number] Univers 13:00:00 13:47:55 Visit Bouchra 77489.1.1 ity of 3.104.2.7 [place] .3.399927 Medica l .8 [place] 2021-08-26 2021-08-26 [facility] [id number] Univers 13:00:00 13:47:55 BOUCHRA ity of [facility] 2021-08-26 2021-08-26 Office [facility], 1.2.840.5 [id number] [id number] Univers 13:00:00 13:47:55 Visit Boucrha 54766.1.1 ity of 3.104.2.7 [place] .3.356676 Medica l .8 [place] 2021-08-26 2021-08-26 Travel 1.2.840.1 1.2.524.336 7075 7347 Univers 00:00:00 00:00:00 77641.1.1 350.1.13.10 ity of 3.104.2.7 4.2.7.3.698 [place] .3.348997 084.8 Med[place] l .8 [place] 2021-08-26 2021-08-26 Travel 1.2.840.1 1.2.801.542 8869 7347 Univers 00:00:00 00:00:00 39608.1.1 350.1.13.10 ity of 3.104.2.7 4.2.7.3.698 [place] .3.094800 084.8 Med[facility] l .8 [place] 2021-08-262021-08-26 Travel 1.2.840.1 1.2.637.589 5446 7347 Univers 00:00:00 00:00:00 99865.1.1 350.1.13.10 ity of 3.104.2.7 4.2.7.3.698 [place]3.595533 084.8 Med[facility] l .8 [place] 2021-08-03 2021-08-03 Chimney Supervisor Brick Sharita, [facility] 1.2.8 40.114 [id number] Univers 17:15:00 17:30:00 Visit Shivani Vaughn [facility] 350.1.13.10 ity of [facility] 4.2.7.2.686 Michelle SCHULTZESSIO [phone] [place] dical NAL 353 [facility] 2021-08-03 2021-08-03 Chimney Supervisor Brick Shivani Vaughn 1.2.840.7 [id number] Univers 17:15:00 17:30:00 Visit Sharita, [facility] 77281.1.1 ity of 3.104.2.7 [place] .3.884917 Medica l .8 [place] 2021-08-03 2021-08-03 Chimney Supervisor Brick Shivani Vaughn 1.2.840.1 [id number] Univers 17:15:00 17:30:00 Visit Moshe, [facility] 74729.1.1 ity of 3.104.2.7 [place] .3.609734 Medica l .8 [place] 2021-08-03 2021-08-03 [address] [facility] [id number] Univers 17:15:00 17:15:00 SHIVANI VAUGHN ity of [facility] 2021-08-02 2021-08-[address] [facility] [id number] Univers 10:15:00 11:07:50 JAMES ity o f [facility] 2021-08-02 2021-08-02 Travel 1.2.840.1 1.2.240.181 3813 6890 Univers 00:00:00 00:00:00 36146.1.1 350.1.13.10 ity of 3.104.2.7 4.2.7.3.698 [place] .3.179281 084.8 Med[facility] l .8 [place] 2021-08-02 2021-08-02 Travel 1.2.840.1 1.2.619.364 4046 6890 Univers 00:00:00 00:00:00 97706.1.1 350.1.13.10 ity of 3.104.2.7 4.2.7.3.698 [place] .3.123548 084.8 Med[facility] l .8 [place] 2021-08-02 2021-08-02 Travel 1.2.840.1 1.2.785.413 9190 6890 Univers 00:00:00 00:00:00 58664.1.1 350.1.13.10 ity of 3.104.2.7 4.2.7.3.698 [place] .3.591344 084.8 Med[facility] l .8 [place] 2021-07-29 2021-07-29 [facility] [id number] Univers 13:26:56 23:59:00 BOUCHRA ity of [facility] 2021-07-29 2021-07-29 [facility], 1.2.840.3 [id number] Univers 13:26:56 23:59:00 Encounter Bouchra 40970.1.1 it y of 3.104.2.7 [place] .3.332169 Medica l .8 [place] 2021-07-29 2021-07-29 [facility], 1.2.840.8 [id number] Univers 13:26:56 23:59:00 Encounter Bouchra 48296.1.1 it y of 3.104.2.7 [place] .3.013966 Medica l .8 [place] 2021-07-29 2021-07-29 [facility], 1.2.840.4 [id number] Univers 13:26:56 23:59:00 Encounter Bouchra 31776.1.1 it y of 3.104.2.7 [place] .3.255191 Medica l .8 [place] 2021-07-29 2021-07-29 [facility] 1.2.033.949 2487 [id number] Univers 13:20:00 15:16:49 Visit Bouchra ARELLANO 350.1.13.10 it y of CARE 4.2.7.2.686 Michelle VALDES [phone] [place] dical 198 [place] 2021-07-29 2021-07-[address] [facility] [id number] Univers 13:20:00 15:16:49 BOUCHRA ity of [facility] 2021-07-29 2021-07-29 Office Arnaldo, 1.2.840.6 [id number] [id number] Univers 13:20:00 15:16:49 Visit Bouchra 35634.1.1 ity of 3.104.2.7 [place] .3.577234 Medica l .8 [place] 2021-07-29 2021-07-29 Office Arnaldo, 1.2.840.0 [id number] [id number] Univers 13:20:00 15:16:49 Visit Bouchra 94986.1.1 ity of 3.104.2.7 [place] .3.555915 Med[facility] l .8 [place] 2021-07-29 2021-07-29 Letter Arnaldo, 1.2.840.2 [id number] [id number] Univers 00:00:00 00:00:00 (Out) Bouchra 11093.1.1 ity of 3.104.2.7 [place] .3.271684 Medica l .8 [place] 2021-07-29 2021-07-29 Travel 1.2.840.1 1.2.439.335 4534 9351 Univers 00:00:00 00:00:00 07064.1.1 350.1.13.10 ity of 3.104.2.7 4.2.7.3.698 [place] .3.646397 084.8 Med[facility] l .8 [place] 2021-07-29 2021-07-29 Letter Arnaldo, 1.2.840.6 [id number] [id number] Univers 00:00:00 00:00:00 (Out) Bouchra 87709.1.1 ity of 3.104.2.7 [place] .3.687023 [facility] [place] 2021-07-29 2021-07-29 Travel 1.2.840.1 1.2.659.291 4668 9351 Univers 00:00:00 00:00:00 46595.1.1 350.1.13.10 ity of 3.104.2.7 4.2.7.3.698 [place] .3.874711 084.8 Med[facility] l .8 [place] 2021-07-29 2021-07-29 Letter Arnaldo, 1.2.840.2 [id number] [id number] Univers 00:00:00 00:00:00 (Out) Bouchra 10857.1.1 ity of 3.104.2.7 [place] .3.718997 Medica l .8 [place] 2021-07-29 2021-07-29 Travel 1.2.840.1 1.2.717.928 6523 9351 Univers 00:00:00 00:00:00 17497.1.1 350.1.13.10 ity of 3.104.2.7 4.2.7.3.698 [place] .3.994009 084.8 Med[facility] l .8 [place] 2021-07-22 2021-07-22 [facility] 1.2.840.114 [id number] Univers 14:00:00 23:59:00 Encounter , Ryan COLMENARES 350.1.13.10 ity of [facility]UNITED [place] [facility] 4.2.7.2.686 [facility] [phone] [facility] 801 [place] 2021-07-22 2021-07-22 [facility] 1.2.840.7 [id number] Univers 14:00:00 23:59:00 Encounter , Ryan 82426.1.1 it y of 3.104.2.7 [place] .3.059327 Medica l .8 [place] 2021-07-22 2021-07-22 [facility] 1.2.840.9 [id number] Univers 14:00:00 23:59:00 Encounter , Ryan 22899.1.1 it y of 3.104.2.7 [place] .3.412598 Medica l .8 [place] 2021-07-22 2021-07-22 [facility] 1.2.840.7 [id number] Univers 14:00:00 23:59:00 Encounter , Ryan 21343.1.1 it y of 3.104.2.7 [place] .3.577282 Medica l .8 [place] 2021-07-22 2021-07-22 [facility] 1.2.840.114 [id number] Univers 10:46:11 13:59:00 Encounter , Ryan SPECIALTY 350.1.13.10 ity of CARE 4.2.7.2.686 [facility] AT [phone] Ks aidee CALHOUN 809 [facility] 2021-07-22 2021-07-22 [facility] 1.2.840.2 [id number] Univers 10:46:11 13:59:00 Encounter , Ryan 95730.1.1 it y of 3.104.2.7 [place] .3.502656 Medica l .8 [place] 2021-07-22 2021-07-22 [facility] 1.2.840.4 [id number] Univers 10:46:11 13:59:00 Encounter , Ryan 68814.1.1 it y of 3.104.2.7 [place] .3.466280 Medica l .8 [place] 2021-07-22 2021-07-22 [facility] 1.2.840.3 [id number] Univers 10:46:11 13:59:00 Encounter , Ryan 15781.1.1 it y of 3.104.2.7 [place] .3.816220 Medica l .8 [place] 2021-07-22 2021-07-[address] [facility] [id number] Univers 13:00:00 13:45:02 HONORIO ity of [facility] 2021-07-22 2021-07-[address] [facility] [id number] Univers 13:00:00 13:45:02 HONORIO ity [facility] 2021-07-22 2021-07-22 Outpatient R GEOVANNI, [facility] [id number] Univers 13:00:00 13:00:00 HONORIO ity [facility] 2021-07-22 2021-07-22 Office Alijanipour 1.2.840.7 [id number] Univers 10:15:00 11:55:28 Visit , Ryan 94440.1.1 ity of 3.104.2.7 [place] .3.248890 Medica l .8 [place] 2021-07-22 2021-07-[address] [facility] [id number] Univers 10:15:00 11:55:28 , RYAN ity [facility] 2021-07-22 2021-07-22 Office Alijanipour 1.2.840.6 [id number] Univers 10:15:00 11:55:28 Visit , Ryan 92435.1.1 ity of 3.104.2.7 [place] .3.533384 Medica l .8 [place] 2021-07-22 2021-07-22 Office Alijanipour 1.2.840.8 [id number] Univers 10:15:00 11:55:28 Visit , Ryan 40241.1.1 ity of 3.104.2.7 [place] .3.964795 Medica l .8 [place] 2021-07-22 2021-07-[address] [facility] [id number] Univers 10:46:11 10:46:11 , RYAN ity [facility] 2021-07-22 2021-07-[address] [facility] [id number] Univers 10:15:00 10:15:00 , RYAN ity [facility] 2021-07-22 2021-07-[address] [facility] [id number] Univers 10:15:00 10:15:00 , RYAN ity [facility] 2021-07-22 2021-07-22 Abstract Alijanipour 1.2.840.4 [id number] Univers 00:00:00 00:00:00 , Ryan 95748.1.1 ity of 3.104.2.7 [place] .3.707001 [facility] [place] 2021-07-22 2021-07-22 Travel 1.2.840.1 1.2.788.844 4098 8425 Univers 00:00:00 00:00:00 70694.1.1 350.1.13.10 ity of 3.104.2.7 4.2.7.3.698 [place] .3.096252 084.8 Med[facility] [place] 2021-07-22 2021-07-22 Letter Alijanipour 1.2.840.2 [id number] Univers 00:00:00 00:00:00 (Out) , Ryan 65935.1.1 ity of 3.104.2.7 [place] .3.808289 [facility] [place] 2021-07-22 2021-07-22 Letter Alijanipour 1.2.840.5 [id number] Univers 00:00:00 00:00:00 (Out) , Ryan 54734.1.1 ity of 3.104.2.7 [place] .3.087479 [facility] [place] 2021-07-22 2021-07-22 Travel 1.2.840.1 1.2.970.923 8893 8425 Univers 00:00:00 00:00:00 97482.1.1 350.1.13.10 ity of 3.104.2.7 4.2.7.3.698 [place] .3.940266 084.8 Med[facility] .[facility] [place] 2021-07-22 2021-07-22 Abstract Alijanipour 1.2.840.7 [id number] Univers 00:00:00 00:00:00 , Ryan 35031.1.1 ity of 3.104.2.7 [place] .3.980482 [facility] 2021-07-22 2021-07-22 Letter Alijanipour 1.2.840.6 [id number] Univers 00:00:00 00:00:00 (Out) , Ryan 80994.1.1 ity of 3.104.2.7 [place] .3.529528 [facility] [place] 2021-07-22 2021-07-22 Travel 1.2.840.1 1.2.033.626 9664 8425 Univers 00:00:00 00:00:00 46801.1.1 350.1.13.10 ity of 3.104.2.7 4.2.7.3.698 [place] .3.931664 084.8 Medica l .8 [place] 2021-07-22 2021-07-22 Abstract Alijanipour 1.2.840.3 [id number] Univers 00:00:00 00:00:00 , Ryan 04874.1.1 ity of 3.104.2.7 [place] .3.616828 Medica l .8 [place] 2021-07-22 2021-07-22 Letter Alijanipour 1.2.840.2 [id number] Univers 00:00:00 00:00:00 (Out) , Ryan 45471.1.1 ity of 3.104.2.7 [place] .3.530235 Medica l .8 [place] 2021-07-22 2021-07-22 Travel 1.2.840.1 1.2.083.310 5260 8425 Univers 00:00:00 00:00:00 40234.1.1 350.1.13.10 ity of 3.104.2.7 4.2.7.3.698 [place] .3.859126 084.8 Med[facility] l .8 [place] 2021-07-22 2021-07-22 Abstract Alijanipour 1.2.840.1 [id number] Univers 00:00:00 00:00:00 , Ryan 45544.1.1 ity of 3.104.2.7 [place] .3.884176 Medica l .8 [place] 2021-07-21 2021-07-[address] [facility] [id number] Univers 14:30:00 15:30:35 SHIVANI VAUGHN [facility] 2021-07-21 2021-07-21 Outpatient R ALTAF VAUGHNBERLY [facility] [id number] Univers 14:30:00 15:30:35 SHIVANI VAUGHN [facility] 2021-07-21 2021-07-21 Outpatient R ALTAF VAUGHNBERLY [facility] [id number] Univers 14:30:00 14:30:00 SHIVANI VAUGHN [facility] 2021-07-15 2021-07-15 Orders Doctor 1.2.840.1 [id number] Univers 00:00:00 00:00:00 Only Unassigned, 58198.1.1 ity of [place] 3.104.2.7 [place] .3.663272 Medica l .8 [place] 2021-07-15 2021-07-15 Orders Doctor 1.2.840.9 [id number] Univers 00:00:00 00:00:00 Only Unassigned, 78434.1.1 ity of [place] 3.104.2.7 [place] .3.260490 Medica l .8 [place] 2021-07-15 2021-07-15 Orders Doctor 1.2.840.0 [id number] Univers 00:00:00 00:00:00 Only Unassigned, 90270.1.1 ity of [place] 3.104.2.7 [place] .3.833904 Medica l .8 [place] 2021-07-15 2021-07-15 Orders Doctor 1.2.840.9 [id number] Univers 00:00:00 00:00:00 Only Unassigned, 51021.1.1 ity of [place] 3.104.2.7 [place] .3.741926 Medica l .8 [place] 2021-07-09 2021-07-09 Emergency [facility] [id number] [facility] 12:46:00 12:46:00 14 2021-07-08 2021-07-[address] [facility] [id number] Univers 13:00:00 13:00:00 HONORIO ity of [facility] 2021-07-08 2021-07-08 Outpatient Escobar GALARZA, [facility] [id number] Univers 13:00:00 13:00:00 HONORIO ity [facility] 2021-06-30 2021-06-30 Telephone Nazeer, 1.2.840.4 [id number] Univers 00:00:00 00:00:00 Jerry 74995.1.1 ity of 3.104.2.7 [place] .3.027764 [facility] [place] 2021-06-30 2021-06-30 Telephone Nazeer, 1.2.840.5 [id number] 900 [id number] Univers 00:00:00 00:00:00 Jerry 27351.1.1 ity of 3.104.2.7 [place] .3.015340 [facility] [place] 2021-06-30 2021-06-30 Telephone Nazeer, 1.2.840.3 [id number] 900 [id number] Univers 00:00:00 00:00:00 Jerry 60033.1.1 ity of 3.104.2.7 [place] .3.468077 Med[facility] .[facility] [place] 2021-06-30 2021-06-30 Telephone Nazeer, 1.2.840.4 [id number] 900 [id number] Univers 00:00:00 00:00:00 Jerry 87965.1.1 ity of 3.104.2.7 [place] .3.200273 Medica l .8 [place] 2021-06-24 2021-06-24 Imm/Inj Nurse, Pcp Immunization [facility] 1. 2.840.114 [id number] Univers 16:30:00 16:40:00 Visit Gideon Montez PRIMARY 350.1.13. 10 ity of CARE 4.2.7.2.686 Michelle VALDES [phone] Ks dical 421 [place] 2021-06-24 2021-06-24 Imm/Inj Gideon Montez 1.2.840.3 [id number] Univers 16:30:00 16:40:00 Visit Nurse, Pcp Immunization 19992.1.1 ity of 3.104.2.7 [place] .3.027316 Medica l .8 [place] 2021-06-24 2021-06-24 Imm/Inj Gideon Montez 1.2.840.4 [id number] Univers 16:30:00 16:40:00 Visit Nurse, Pcp Immunization 95118.1.1 ity of 3.104.2.7 [place] .3.423717 Medica l .8 [place] 2021-06-24 2021-06-24 Imm/Inj Gideon Montez 1.2.840.1 [id number] Univers 16:30:00 16:40:00 Visit Nurse, Pcp Immunization 67685.1.1 ity of 3.104.2.7 [place] .3.248737 Medica l .8 [place] 2021-06-24 2021-06-24 Imm/Inj Gideon Montez 1.2.840.3 [id number] Univers 16:30:00 16:40:00 Visit Nurse, Pcp Immunization 48278.1.1 ity of 3.104.2.7 [place] .3.598792 Medica l .8 [place] 2021-06-24 2021-06-24 Outpatient R [address]LOS MANUEL [facility] [id number] Univers 16:30:00 16:30:00 GIDEON ity of [facility] 2021-06-24 2021-06-24 [place] Supervisor Brick Pcp-Lab [facility] 1.2.840.114 [id number] Univers 16:15:00 16:30:00 Visit Bethel Isaacs PRIMARY 350.1.13.10 ity of CARE 4.2.7.2.686 Michelle VALDES [id number] [place] [address] [place] 2021-06-24 2021-06-24 [place] Supervisor Brick Bethel Isaacs 1.2.840.2 [id number] Univers 16:15:00 16:30:00 Visit Pcp-Lab 28134.1.1 ity of 3.104.2.7 [place] .3.518549 Medica l .8 [place] 2021-06-24 2021-06-24 [place] Supervisor Brick Bethel Isaacs 1.2.840.0 [id number] Univers 16:15:00 16:30:00 Visit Pcp-Lab 31467.1.1 ity of 3.104.2.7 [place] .3.580495 Medica l .8 [place] 2021-06-24 2021-06-24 [place] Supervisor Brick Bethel Isaacs 1.2.840.1 [id number] Univers 16:15:00 16:30:00 Visit Pcp-Lab 41493.1.1 ity of 3.104.2.7 [place] .3.124316 Medica l .8 [place] 2021-06-24 2021-06-24 [place] Supervisor Brick Bethel Isaacs 1.2.840.6 [id number] Univers 16:15:00 16:30:00 Visit Pcp-Lab 65153.1.1 ity of 3.104.2.7 [place] .3.689937 Medica l .8 [place] 2021-06-24 2021-06-24 [facility] [id number] Univers 16:15:00 16:15:00 BETHEL erickson [facility] 2021-06-24 2021-06-24 [facility] [id number] Univers 14:40:00 16:08:00 BETHEL erickson [facility] 2021-06-24 2021-06-24 Office Bethel Isaacs 1.2.840.2 [id number] Univers 14:40:00 16:08:00 Visit Health, Tg Hormone 72515.1.1 ity of 3.104.2.7 [place] .3.049090 Medica l .8 [place] 2021-06-24 2021-06-24 [facility] [id number] Univers 14:40:00 16:08:00 BETHEL erickson [facility] 2021-06-24 2021-06-24 Office Bethel Isaacs 1.2.840.1 [id number] Univers 14:40:00 16:08:00 Visit Health, Tg Hormone 76707.1.1 ity of 3.104.2.7 [place] .3.140181 Medica l .8 [place] 2021-06-24 2021-06-24 Office Bethel Isaacs 1.2.840.8 [id number] Univers 14:40:00 16:08:00 Visit Health, Tg Hormone 00733.1.1 ity of 3.104.2.7 [place] .3.871974 Medica l .8 [place] 2021-06-24 2021-06-24 Office Bethel Isaacs 1.2.840.4 [id number] Univers 14:40:00 16:08:00 Visit Health, Tg Hormone 87324.1.1 ity of 3.104.2.7 [place] .3.992702 Medica l .8 [place] 2021-06-24 2021-06-24 Outpatient R KOURTNEY, [facility] [id number] Univers 14:40:00 14:40:00 BETHEL ity of [facility] 2021-06-24 2021-06-24 Travel 1.2.840.1 1.2.358.451 [id number] Univers 00:00:00 00:00:00 18604.1.1 350.1.13.10 ity of 3.104.2.7 4.2[place]7.3.698 [place] .3.199346 084.8 Medica l .8 [place] 2021-06-24 2021-06-24 Travel 1.2.840.1 1.2.042.495 5531 0448 Univers 00:00:00 00:00:00 85241.1.1 350.1.13.10 ity of 3.104.2.7 4.2[place]7.3.698 [place] .3.357154 084.8 Medica l .8 [place] 2021-06-24 2021-06-24 Travel 1.2.840.1 1.2.166.690 5789 0448 Univers 00:00:00 00:00:00 81792.1.1 350.1.13.10 ity of 3.104.2.7 4.2.7.3.698 [place] .3.284944 084.8 Medica l .8 [place] 2021-06-24 2021-06-24 Travel 1.2.840.1 1.2.304.179 0706 0448 Univers 00:00:00 00:00:00 50570.1.1 350.1.13.10 ity of 3.104.2.7 4.2[place]7.3.698 [place] .3.719528 084.8 Medica l .8 [place] 2021-06-17 2021-06-17 [place] Supervisor Brick Self, James 1.2.840.7 [id number] Univers 16:00:00 16:15:00 Visit Pcp-Lab 56101.1.1 ity of 3.104.2.7 [place] .3.215294 Medica l .8 [place] 2021-06-17 2021-06-17 [place] Supervisor Brick Self, James 1.2.840.7 [id number] Univers 16:00:00 16:15:00 Visit Pcp-Lab 90025.1.1 ity of 3.104.2.7 [place] .3.616001 Medica l .8 [place] 2021-06-17 2021-06-17 [place] Supervisor Brick Self, James 1.2.840.6 [id number] Univers 16:00:00 16:15:00 Visit Pcp-Lab 82167.1.1 ity of 3.104.2.7 [place] .3.776173 Medica l .8 [place] 2021-06-17 2021-06-17 [place] Supervisor Brick Self, James 1.2.840.4 [id number] Univers 16:00:00 16:15:00 Visit Pcp-Lab 25146.1.1 ity of 3.104.2.7 [place] .3.854457 Medica l .8 [place] 2021-06-17 2021-06-17 [place] Supervisor Brick SelfJames 1.2.840.3 [id number] Univers 16:00:00 16:15:00 Visit Pcp-Lab 78616.1.1 ity of 3.104.2.7 [place] .3.704692 Medica l .8 [place] 2021-06-17 2021-06-[address] [facility] [id number] Univers 14:00:00 14:00:00 HONORIO ity [facility] 2021-06-17 2021-06-[address] [facility] [id number] Univers 14:00[facility]00 [facility] 2021-06-17 Travel 1.2.840.1 1.2.145.678 7673 3149 [facility] 00:00:00 00:00:00 16570.1.1 350.1.13.10 ity of 3.104.2.7 [place].3.698 [place].4512[place] 084.8 Med[place] l .8 [place] 2021-06-17 2021-06-17 Travel 1.2.840.1 1.2.015.435 9250 3149 Univers 00:00:00 00:00:00 29407.1.1 350.1.13.10 ity of 3.104.2.7 [place].3.698 [place].253[place] 084.8 Med[place] l .8 [place] 2021-06-17 2021-06-17 Travel 1.2.840.1 1.2.286.388 5673 3149 Univers 00:00:00 00:00:00 29175.1.1 350.1.13.10 ity of 3.104.2.7 [place]7.3.698 [place]3.543166 084.8 Med[place] l .8 [place] 2021-06-17 2021-06-17 Travel 1.2.840.1 1.2.088.596 8202 3149 Univers 00:00:00 00:00:00 05234.1.1 350.1.13.10 ity of 3.104.2.7 [place]7.3.698 [place] .3.025807 084.8 Med[place] l .8 [place] 2021-06-17 2021-06-17 Travel 1.2.840.1 1.2.462.946 6709 3149 [facility] 00:00:00 00:00:00 94960.1.1 350.1.13.10 ity of 3.104.2.7 [place]7.3.698 [place] .3.291647 084.8 Medica l .8 [place] 2021-06-14 2021-06-14 Outpatient R REYNALDO, [facility] [id number] Univers 11:00:00 12:13:42 JAMES ity o f [facility] 2021-06-14 2021-06-14 Travel 1.2.840.1 1.2.946.287 5261 7514 [facility] 00:00:00 00:00:00 62747.1.1 350.1.13.10 ity of 3.104.2.7 [place]7.3.698 [place] .3.661121 084.8 Medica l .8 [place] 2021-06-14 2021-06-14 Travel 1.2.840.1 1.2.792.005 3093 7514 [facility] 00:00:00 00:00:00 93650.1.1 350.1.13.10 ity of 3.104.2.7 [place].7.3.698 [place] .3.489267 084.8 Medica l .8 [place] 2021-06-14 2021-06-14 Travel 1.2.840.1 1.2.216.391 0767 7514 Univers 00:00:00 00:00:00 34519.1.1 350.1.13.10 ity of 3.104.2.7 4.[place].7.3.698 [place] .3.691153 084.8 Medica l .8 [place] 2021-06-14 2021-06-14 Travel 1.2.840.1 1.2.574.628 7742 7514 Univers 00:00:00 00:00:00 61398.1.1 350.1.13.10 ity of 3.104.2.7 4.[place].7.3.698 [place] .3.753610 084.8 Medica l .8 [place] 2021-06-10 2021-06-10 Patient Burton, 1.2.840.5 [id number] Univers 00:00:00 00:00:00 Outreach Britt J 70251.1.1 ity of 3.104.2.7 [place] .3.882903 Medica l .8 [place] 2021-06-10 2021-06-10 Patient Burton, 1.2.840.7 [id number] Univers 00:00:00 00:00:00 Outreach Britt J 73016.1.1 ity of 3.104.2.7 [place] .3.882661 Medica l .8 [place] 2021-06-10 2021-06-10 Patient Burton, 1.2.840.0 [id number] Univers 00:00:00 00:00:00 Outreach Britt J 97117.1.1 ity of 3.104.2.7 [place] .3.136589 Medica l .8 [place] 2021-06-10 2021-06-10 Patient Burton, 1.2.840.4 [id number] 075 Univers 00:00:00 00:00:00 Outreach Britt J 57859.1.1 ity of 3.104.2.7 [place] .3.276987 Medica l .8 [place] 2021-06-03 2021-06-[address] [facility] [id number] Univers 14:00:00 14:22:42 HONORIO ity of [facility] 2021-06-03 2021-06-03 Travel 1.2.840.1 1.2.705.515 3930 4897 Univers 00:00:00 00:00:00 21572.1.1 350.1.13.10 ity of 3.104.2.7 4.[place]7.3.698 [place] .3.917449 084.8 Medica l .8 [place] 2021-06-03 2021-06-03 Travel 1.2.840.1 1.2.299.366 3335 4897 Univers 00:00:00 00:00:00 75104.1.1 350.1.13.10 ity of 3.104.2.7 4.2.7.3.698 [place] .3.694267 084.8 Medica l .8 [place] 2021-06-03 2021-06-03 Travel 1.2.840.1 1.2.196.387 0356 4897 Univers 00:00:00 00:00:00 93264.1.1 350.1.13.10 ity of 3.104.2.7 4.2.7.3.698 [place] .3.830684 084.8 Medica l .8 [place] 2021-06-03 2021-06-03 Travel 1.2.840.1 1.2.732.437 3489 4897 [facility] 00:00:00 00:00:00 99870.1.1 350.1.13.10 ity of 3.104.2.7 4.[place].7.3.698 [place] .3.615834 084.8 Medica l .8 [place] 2021-05-26 2021-05-26 [facility], 1.2.840.0 [id number] Univers 09:40:00 23:59:00 Encounter Burke De La Cruz 04565.1.1 ity of 3.104.2.7 [place] .3.785383 Medica l .8 [facility] 2021-05-26 2021-05-26 [facility], 1.2.840.1 [id number] Univers 09:40:00 23:59:00 Encounter Burke De La Cruz 08429.1.1 ity of 3.104.2.7 [place] .3.450043 Medica l .8 [place] 2021-05-26 2021-05-26 [facility], 1.2.840.2 [id number] 9138 Univers 09:40:00 23:59:00 Encounter Burke De La Cruz 43529.1.1 ity of 3.104.2.7 [place] .3.399862 Medica l .8 [place] 2021-05-26 2021-05-26 Outpatient R ASHLEE, [facility] [id number] Univers 00:00:00 00:00:00 BURKE erickson [facility] 2021-05-25 2021-05-25 Emergency [facility] [id number] [facility] 23:19:00 23:19:00 94 2021-05-24 2021-05-24 Outpatient R SELF, [facility] [id number] Univers 11:00:00 11:31:18 JAMES anderson [facility] 2021-05-24 2021-05-24 Travel 1.2.840.1 1.2.693.711 0838 1167 Univers 00:00:00 00:00:00 22013.1.1 350.1.13.10 ity of 3.104.2.7 4.[place].7.3.698 [place] .3.598622 084.8 Medica l .8 [place] 2021-05-24 2021-05-24 Travel 1.2.840.1 1.2.468.080 2032 1167 Univers 00:00:00 00:00:00 75628.1.1 350.1.13.10 ity of 3.104.2.7 4.2.7.3.698 [place] .3.567070 084.8 Medica l .8 [place] 2021-05-24 2021-05-24 Travel 1.2.840.1 1.2.857.497 1515 1167 Univers 00:00:00 00:00:00 29762.1.1 350.1.13.10 ity of 3.104.2.7 4.[place].7.3.698 [place] .3.443180 084.8 Medica l .8 [place] 2021-05-10 2021-05-10 Outpatient R SELF, [facility] [id number] Univers 08:45:00 08:45:00 JAMES anderson [facility] 2021-04-29 2021-04-29 Outpatient R GALARZA, [facility] [id number] Univers 13:00:00 13:33:16 HONORIO erickson [facility] 2021-04-29 2021-04-29 Outpatient R GALARZA, [facility] [id number] Univers 13:00:00 13:00:00 HONORIO erickson [facility] 2021-04-29 2021-04-29 Travel 1.2.840.1 1.2.583.141 7852 6843 Univers 00:00:00 00:00:00 23370.1.1 350.1.13.10 ity of 3.104.2.7 4.[place].7.3.698 [place] .3.095695 084.8 Medica l .8 [place] 2021-04-29 2021-04-29 Travel 1.2.840.1 1.2.587.652 9916 6843 Univers 00:00:00 00:00:00 72703.1.1 350.1.13.10 ity of 3.104.2.7 4.2.7.3.698 [place] .3.356329 084.8 Medica l .8 [place] 2021-03-18 2021-03-18 [facility] [id number] Univers 15:00:00 15:00:00 HONORIO erickson [facility] 2021-03-18 2021-03-18 Travel 1.2.840.1 1.2.264.611 7199 6290 Univers 00:00:00 00:00:00 49530.1.1 350.1.13.10 ity of 3.104.2.7 [place].7.3.698 [place] .3.883408 084.8 Medica l [address] [place] [address] 2021-03-15 2021-03-[address] [facility] [id number] Univers 10:15:00 10:15:00 JAMES ity o f [facility] 2021-02-25 2021-02-25 Outpatient Esc[facility] [id number] Univers 09:00:00 09:00:00 HONORIO erickson [facility] 2021-02-25 2021-02-25 Travel 1.2.840.1 1.2.428.732 9552 5255 Univers 00:00:00 00:00:00 22073.1.1 350.1.13.10 ity of 3.104.2.7 4.[place].7.3.698 [place] .3.308722 084.8 Medica l .8 [place] 2021-02-15 2021-02-15 Outpatient R REYNALDO, [facility] [id number] Univers 11:00:00 11:00:00 JAMES erickson o f [facility] 2021-02-15 2021-02-15 Travel 1.2.840.1 1.2.852.083 4247 5687 Univers 00:00:00 00:00:00 85605.1.1 350.1.13.10 ity of 3.104.2.7 4.[place]7.3.698 [place] .3.981093 084.8 Medica l .8 [place] 2021-02-11 2021-02-11 [facility] [id number] Univers 11:00:00 11:00:00 [facility] 2021-02-11 2021-02-11 Travel 1.2.840.1 1.2.439.932 8455 4822 Univers 00:00:00 00:00:00 69561.1.1 350.1.13.10 ity of 3.104.2.7 4.2.7.3.698 [place] .3.870306 084.8 Medica l .8 [place] 2021-01-28 2021-01-28 Chimney Supervisor Brick Paolo Rivera 1.2.840.7 [id number] Univers 13:53:29 14:08:29 Visit Pcp-Lab 21609.1.1 ity of 3.104.2.7 [place] .3.988208 Medica l .8 [place] 2021-01-28 2021-01-28 [facility] [id number] Univers 13:00:00 13:00:00 [facility] 2021-01-28 2021-01-28 Travel 1.2.840.1 1.2.581.594 1561 1440 Univers 00:00:00 00:00:00 55230.1.1 350.1.13.10 ity of 3.104.2.7 4.[place].7.3.698 [place] .3.757561 084.8 Medica l .8 [place] 2021-01-25 2021-01-25 Outpatient R REYNALDO, [facility] [id number] Univers 09:30:00 09:30:00 JAMES anderson [facility] 2021-01-25 2021-01-25 Travel 1.2.840.1 1.2.594.464 2156 4049 Univers 00:00:00 00:00:00 94741.1.1 350.1.13.10 ity of 3.104.2.7 4.2.7.3.698 [place] .3.423948 084.8 Medica l .8 [place] 2021-01-13 2021-01-13 [facility]patient [facility] [id number] Univers 16:00:00 16:00:00 JAMES anderson [facility] 2021-01-13 2021-01-13 Travel 1.2.840.1 1.2.654.714 8023 8345 Univers 00:00:00 00:00:00 63321.1.1 350.1.13.10 ity of 3.104.2.7 4.2.7.3.698 [place] .3.453030 084.8 Medica l .8 [place] 2020-12-31 2020-12-31 Chimney Supervisor Brick Tim Holguin 1.2.840.4 [id number] Univers 16:38:39 16:54:09 Visit Pcp-Lab 82211.1.1 ity of 3.104.2.7 [place] .3.031340 Medica l .8 [place] 2020-12-31 2020-12-[address] [facility] [id number] Univers 16:00:00 16:00:00 HONORIO bernaladrian [facility] 2020-12-31 2020-12-31 Travel 1.2.840.1 1.2.344.252 9421 7339 Univers 00:00:00 00:00:00 21570.1.1 350.1.13.10 ity of 3.104.2.7 4.2.7.3.698 [place] .3.067429 084.8 Medica l .8 [place] 2020-12-28 2020-12-28 Orders Doctor 1.2.840.4 [id number] Univers 00:00:00 00:00:00 Only Unassigned, 59586.1.1 ity of [place] 3.104.2.7 [place] .3.935125 Medica l .8 [place] 2020-12-24 2020-12-[address] [facility] [id number] Univers 11:00:00 11:00:00 TIM [facility] 2020-12-24 2020-12-24 Travel 1.2.840.1 1.2.993.641 5619 7276 Univers 00:00:00 00:00:00 28733.1.1 350.1.13.10 ity of 3.104.2.7 4.2.7.3.698 [place] .3.149994 084.8 Medica l .8 [place] 2020-12-17 2020-12-[address] [facility] [id number] Univers 11:00:00 11:00[facility] 2020-11-26 2020-11-[address] [facility] [id number] Univers 16:00:00 16:00:00 [facility] 2020-11-26 2020-11-26 Travel 1.2.840.1 1.2.170.850 1548 0854 Univers 00:00:00 00:00:00 44267.1.1 350.1.13.10 ity of 3.104.2.7 4.2.7.3.698 [place] .3.726174 084.8 Medica l .8 [place] 2020-11-26 2020-11-26 Travel 1.2.840.1 1.2.205.402 8002 0854 Univers 00:00:00 00:00:00 66443.1.1 350.1.13.10 ity of 3.104.2.7 4.2.7.3.698 [place] .3.474643 084.8 Medica l .8 [place] 2020-11-21 2020-11-21 Imm/Inj Gideon Montez 1.2.840.3 [id number] Univers 10:04:35 10:09:35 Visit Immunization, [facility] 31627.1.1 ity of 3.104.2.7 [place] .3.246009 Medica l .8 [place] 2020-11-21 2020-11-21 Out[address]OS [address]UEL [facility] [id number] Univers 10:05:00 10:05:00 GIDEON itadrian [facility] 2020-11-17 2020-11-17 Outpatient R CHELSY ROMO [facility] [id number] Univers 15:45:00 15:45:00 ity [facility] 2020-11-17 2020-11-17 Travel 1.2.840.1 1.2.510.146 6524 3821 Univers 00:00:00 00:00:00 54718.1.1 350.1.13.10 ity of 3.104.2.7 4.2.7.3.698 [place] .3.847480 084.8 Medica l .8 [place] 2020-11-16 2020-11-16 Orders Doctor 1.2.840.5 [id number] Univers 00:00:00 00:00:00 Only Unassigned, 98537.1.1 ity of [place] 3.104.2.7 [place] .3.306793 Medica l .8 [place] 2020-11-12 2020-11-[address] [facility] [id number] Univers 08:00:00 08:00:00 HONORIO ity [facility] 2020-11-12 2020-11-12 Travel 1.2.840.1 1.2.504.922 1361 7122 Univers 00:00:00 00:00:00 35362.1.1 350.1.13.10 ity of 3.104.2.7 4.2.7.3.698 [place] .3.568517 084.8 Medica l .8 [place] 2020-10-29 2020-10-[address] [facility] [id number] Univers 09:30:00 09:30:00 TIM it y of [facility] 2020-10-24 2020-10-24 Imm/Inj Gio Martinez 1.2.840.1 [id number] Univers 09:54:36 10:09:56 Visit Immunization, [facility] 50295.1.1 ity of 3.104.2.7 [place] .3.520548 Medica l [address] 2020-10-24 2020-10-[address] [facility] [id number] Univers 10:00:00 10:00:00 GIO ity of [facility] 2020-10-24 2020-10-24 Travel 1.2.840.1 1.2.389.485 8329 3748 Univers 00:00:00 00:00:00 41238.1.1 350.1.13.10 ity of 3.104.2.7 4.2.7.3.698 [place] .3.579812 084.8 Med[address] l [address] 2020-09-25 2020-09-26 Emergency E BRINDA, [facility] [id number] [facility] 23:49:00 10:04:00 [facility] 2020-09-17 2020-09-17 Telephone Simon, 1.2.840.2 [id number] Univers 00:00:00 00:00:00 Nilton A 49563.1.1 i ty of 3.104.2.7 [place] .3.653019 Medica l [address] 2020-08-18 2020-08-18 Outpatient R CLARISSA CHELSY [facility] [id number] Univers 15:00:00 15:00:00 ity of [facility] 2020-07-08 2020-07-08 Office Simon 1.2.840.0 [id number] Univers 12:55:33 15:36:41 Visit Nilton Luciano 45821.1.1 i ty of 3.104.2.7 [place] .3.838622 Medica l .8 [place] 2020-07-08 2020-07-08 [address] [facility] [id number] Univers 13:30:00 13:30:00 NILTON MONTES ity of [facility] 2020-07-08 2020-07-08 Orders Doctor 1.2.840.4 [id number] Univers 00:00:00 00:00:00 Only Unassigned, 45663.1.1 ity of [place] 3.104.2.7 [place] .3.139126 Medica l .8 [place] 2020-07-08 2020-07-08 Letter Simon 1.2.840.4 [id number] Univers 00:00:00 00:00:00 (Out) Nilton Luciano 44690.1.1 i ty of 3.104.2.7 [place] .3.466156 Medica l .8 [place] 2020-05-21 2020-05-[address] [facility] [id number] Univers 10:15:00 10:15:00 DENA ity of [facility] 2020-05-21 2020-05-21 Orders Doctor 1.2.840.3 [id number] Univers 00:00:00 00:00:00 Only Unassigned, 13861.1.1 ity of [place] 3.104.2.7 [place] .3.571965 Medica l .8 [place] 2020-04-24 2020-04-24 [address] [facility] [id number] [id number] Univers 16:00:00 16:00:00 ity of [facility] 2020-04-22 2020-04-22 Ash Roberson 1.2.840.1 [id number] Univers 00:00:00 00:00:00 00523.1.1 ity of 3.104.2.7 [place] .3.961066 Medica l .8 [place] 2020-04-21 2020-04-21 Case Ash Ramirez 1.2.840.9 [id number] Univers 00:00:00 00:00:00 Management 41338.1.1 i ty of 3.104.2.7 [place] .3.116702 Medica l .8 [place] 2020-04-20 2020-04-20 Office Ash Ramirez 1.2.840.1 [id number] Univers 15:09:50 16:30:58 Visit 92532.1.1 ity of 3.104.2.7 [place] .3.110947 Medica l .8 [place] 2020-04-20 2020-04-20 [address] [facility] [id number] Univers 15:30:00 15:30:00 ity of [facility] 2020-04-20 2020-04-20 Travel 1.2.840.1 1.2.726.627 3172 7424 Univers 00:00:00 00:00:00 32784.1.1 350.1.13.10 ity of 3.104.2.7 4.2.7.3.698 [place] .3.823815 084.8 Medica l .8 [place] 2020-04-16 2020-04-16 Emergency Checo, Kitty 1.2.840.5 [id number] Univers 11:02:00 13:56:00 Bree 46669.1.1 ity of 3.104.2.7 [place] .3.727629 Medica l .8 [place] 2020-04-16 2020-04-16 Travel 1.2.840.1 1.2.442.318 8944 3692 Univers 00:00:00 00:00:00 38319.1.1 350.1.13.10 ity of 3.104.2.7 4.2.7.3.698 [place] .3.085473 084.8 Medica l .8 [place] 2020-04-07 2020-04-07 Outpatient R CHELSY ROMO [facility] [id number] Univers 13:30:00 13:30:00 ity of [facility] 2020-04-07 2020-04-07 Travel 1.2.840.1 1.2.351.323 1875 9561 Univers 00:00:00 00:00:00 42165.1.1 350.1.13.10 ity of 3.104.2.7 4.2.7.3.698 [place] .3.962429 084.8 Medica l .8 [place] 2020-01-30 2020-01-30 Outpatient R MAHENDRA, [facility] [id number] Univers 15:45:00 15:45:00 TRUNG ity of [facility] 2020-01-30 2020-01-30 Travel 1.2.840.1 1.2.622.152 9663 2349 Univers 00:00:00 00:00:00 68021.1.1 350.1.13.10 ity of 3.104.2.7 4.2.7.3.698 [place] .3.248648 084.8 Medica l .8 [place] 2020-01-01 2020-01-01 Orders Doctor 1.2.840.4 [id number] Univers 00:00:00 00:00:00 Only Unassigned, 61994.1.1 ity of [place] 3.104.2.7 [place] .3.420741 Medica l .8 [place] 2019-10-22 2019-10-22 Outpatient R [address]Y [address]O [facility] [id number] Univers 15:45:00 15:45:00 ity of [facility] 2019-09-12 2019-09-12 Urgent Unknown, Attending 1.2.840.1 [id number] Univers 17:51:35 19:25:20 Ruchi Camargo 49475.1.1 ity of 3.104.2.7 [place] .3.080706 Medica l .8 [place] 2019-09-12 2019-09-12 Outpatient R UNKNOWN, [facility] [id number] Univers 18:00:00 18:00:00 ATTENDING ity [facility] 2019-07-04 2019-07-04 Orders Doctor 1.2.840.5 [id number] Univers 00:00:00 00:00:00 Only Unassigned, 65291.1.1 ity of [place] 3.104.2.7 [place] .3.488967 Medica l .8 [place] 2019-04-02 2019-04-02 Orders Doctor 1.2.840.0 [id number] Univers 00:00:00 00:00:00 Only Unassigned, 38167.1.1 ity of [place] 3.104.2.7 [place] .3.255455 Medica l .8 [place] 2018-10-31 2018-10-31 Nurse Nilton Montes 1.2.840.1 [id number] [id number] Univers 14:59:26 16:42:50 Visit Nurse, [facility] [employer] 20702.1.1 ity of 3.104.2.7 [place] .3.733243 Medica l 8 [place] Results Test Description Test Time Test Comments Results Result Comments Source AG STREP GROUP A (THROAT) POC 2022-07-15 20:12:00 Test Item Value Reference Range Interpretation Comme nts AG STREP GROUP A (THROAT) POC (test code = STREPAPOC) negative NEGATIVE POCT [id number] 01:46:00 Test Item Value Reference Range Interpretation Comments POCT PREG (test code = 1605) Negative On board controls acceptable with Present C Line (test code = 3574) POCT PREG LOT # (test code = HCG 20110903) POCT PREG TEST DATE (test 07/02/2023 code = 3576) Lab Interpretation (test code = Normal 66754-9) [facility] [id number] 01:46:00 Test Item Value Reference Range Interpretation Comments POCT PREG (test code = 1605) Negative On board controls acceptable with Present C Line (test code = 3574) POCT PREG LOT # (test code = HCG 20110903) POCT PREG TEST DATE (test 07/02/2023 code = 3576) Lab Interpretation (test code = Normal 00462-8) [facility] [id number] 01:46:00 Test Item Value Reference Range Interpretation Comments POCT PREG (test code = 1605) Negative On board controls acceptable with Present C Line (test code = 3574) POCT PREG LOT # (test code = HCG 20110903) POCT PREG TEST DATE (test 07/02/2023 code = 3576) Lab Interpretation (test code = Normal 58021-8) [facility] [id number] 01:46:00 Test Item Value Reference Range Interpretation Comments POCT PREG (test code = 1605) Negative On board controls acceptable with Present C Line (test code = 3574) POCT PREG LOT # (test code = HCG [id number]) POCT PREG TEST DATE (test 07/02/2023 code = 3576) Lab Interpretation (test code = Normal 26898-2) [facility] [id number] 01:46:00 Test Item Value Reference Range Interpretation Comments POCT PREG (test code = 1605) Negative On board controls acceptable with Present C Line (test code = 3574) POCT PREG LOT # (test code = HCG 20110903) POCT PREG TEST DATE (test 07/02/2023 code = 3576) Lab Interpretation (test code = Normal 60431-5) [facility] [id number] 01:46:00 Test Item Value Reference Range Interpretation Comments POCT PREG (test code = 1605) Negative On board controls acceptable with Present C Line (test code = 3574) POCT PREG LOT # (test code = HCG [id number]) POCT PREG TEST DATE (test 07/02/2023 code = 3576) Lab Interpretation (test code = Normal 38780-5) [facility] [id number] 01:46:00 Test Item Value Reference Range Interpretation Comments POCT PREG (test code = 1605) Negative On board controls acceptable with Present C Line (test code = 3574) POCT PREG LOT # (test code = HCG 20110903) POCT PREG TEST DATE (test 07/02/2023 code = 3576) Lab Interpretation (test code = Normal 80422-3) [facility] [id number] 01:46:00 Test Item Value Reference Range Interpretation Comments POCT PREG (test code = 1605) Negative On board controls acceptable with Present C Line (test code = 3574) POCT PREG LOT # (test code = HCG [id number]) POCT PREG TEST DATE (test 07/02/2023 code = 3576) Lab Interpretation [facility]test code = Normal 43110-5[id number] Test Item Value Reference Range Interpretation Comments POCT PREG (test code = 1605) Negative On board controls acceptable with Present C Line (test code = 3574) POCT PREG LOT # (test code = HCG [id number]) POCT PREG TEST DATE (test 07/02/2023 code = 3576) Lab Interpretation (test code = Normal 66225-3) [facility] [id number] 01:46:00 Test Item Value Reference Range Interpretation Comments POCT PREG (test code = 1605) Negative On board controls acceptable with Present C Line (test code = 3574) POCT PREG LOT # (test code = HCG [id number]) POCT PREG TEST DATE (test 07/02/2023 code = 3576) Lab Interpretation (test code = Normal 94981-9) [facility] [id number] 01:46:00 Test Item Value Reference Range Interpretation Comments POCT PREG (test code = 1605) Negative On board controls acceptable with Present C Line (test code = 3574) POCT PREG LOT # (test code = HCG 20110903) POCT PREG TEST DATE (test 07/02/2023 code = 3576) Lab Interpretation (test code = Normal 85225-5) [facility] [id number] 01:46:00 Test Item Value Reference Range Interpretation Comments POCT PREG (test code = 1605) Negative On board controls acceptable with Present C Line (test code = 3574) POCT PREG LOT # (test code = HCG 20110903) POCT PREG TEST DATE (test 07/02/2023 code = 3576) Lab Interpretation (test code = Normal 91080-1) [facility] [id number] 01:46:00 Test Item Value Reference Range Interpretation Comments POCT PREG (test code = 1605) Negative On board controls acceptable with Present C Line (test code = 3574) POCT PREG LOT # (test code = HCG [id number]) POCT PREG TEST DATE (test 07/02/2023 code = 3576) Lab Interpretation (test code = Normal 08252-6) [facility] [id number] 01:46:00 Test Item Value Reference Range Interpretation Comments POCT PREG (test code = 1605) Negative On board controls acceptable with Present C Line (test code = 3574) POCT PREG LOT # (test code = HCG [id number]) POCT PREG TEST DATE (test 07/02/2023 code = 3576) Lab Interpretation (test code = Normal 86991-8) [facility] [id number] 01:46:00 Test Item Value Reference Range Interpretation Comments POCT PREG (test code = 1605) Negative On board controls acceptable with Present C Line (test code = 3574) POCT PREG LOT # (test code = HCG [id number]) POCT PREG TEST DATE (test 07/02/2023 code = 3576) Lab Interpretation (test code = Normal 91734-3) [facility] [id number] 01:46:00 Test Item Value Reference Range Interpretation Comments POCT PREG (test code = 1605) Negative On board controls acceptable with Present C Line (test code = 3574) POCT PREG LOT # (test code = HCG [id number]) POCT PREG TEST DATE (test 07/02/2023 code = 3576) Lab Interpretation (test code = Normal 44169-1) [facility] [id number] 01:46:00 Test Item Value Reference Range Interpretation Comments POCT PREG (test code = 1605) Negative On board controls acceptable with Present C Line (test code = 3574) POCT PREG LOT # (test code = HCG 20110903) POCT PREG TEST DATE (test 07/02/2023 code = 3576) Lab Interpretation (test code = Normal 11844-7) [facility] [id number] 01:46:00 Test Item Value Reference Range Interpretation Comments POCT PREG (test code = 1605) Negative On board controls acceptable with Present C Line (test code = 3574) POCT PREG LOT # (test code = HCG 20110903) POCT PREG TEST DATE (test 07/02/2023 code = 3576) Lab Interpretation (test code = Normal 37922-8) [facility] [id number] 01:46:00 Test Item Value Reference Range Interpretation Comments POCT PREG (test code = 1605) Negative On board controls acceptable with Present C Line (test code = 3574) POCT PREG LOT # (test code = HCG 20110903) POCT PREG TEST DATE (test 07/02/2023 code = 3576) Lab Interpretation (test code = Normal 77752-1) [facility] [id number] 01:46:00 Test Item Value Reference Range Interpretation Comments POCT PREG (test code = 1605) Negative On board controls acceptable with Present C Line (test code = 3574) POCT PREG LOT # (test code = HCG 20110903) POCT PREG TEST DATE (test 07/02/2023 code = 3576) Lab Interpretation (test code = Normal 32195-8) [facility] [id number] 01:46:00 Test Item Value Reference Range Interpretation Comments POCT PREG (test code = 1605) Negative On board controls acceptable with Present C Line (test code = 3574) POCT PREG LOT # (test code = HCG 20110903) POCT PREG TEST DATE (test 07/02/2023 code = 3576) Lab Interpretation (test code = Normal 80182-1) [facility] [id number] 01:46:00 Test Item Value Reference Range Interpretation Comments POCT PREG (test code = 1605) Negative On board controls acceptable with Present C Line (test code = 3574) POCT PREG LOT # (test code = HCG 20110903) POCT PREG TEST DATE (test 07/02/2023 code = 3576) Lab Interpretation (test code = Normal 52605-5) [facility] [id number] 01:46:00 Test Item Value Reference Range Interpretation Comments POCT PREG (test code = 1605) Negative On board controls acceptable with Present C Line (test code = 3574) POCT PREG LOT # (test code = [id number]) POCT PREG TEST DATE (test 07/02/2023 code = 3576) Lab Interpretation (test code = Normal 60360-7) [facility] METABOLIC PANEL (NA, K, CL, CO2, GLUCOSE, BUN, CREATININE, CA)2022-04-05 11:08:28 Test Item Value Reference Range Interpretation Comments NA (test code = 137 mmol/L 135-145 3312740499) K (test code = 3.8 mmol/L 3.5-5 3065807691) CL (test code = 104 mmol/L 98-108 0161212368) CO2 TOTAL (test code 27 mmol/L 23-31 = 1761303395) AGAP (test code = 2-16 4363222446) BUN (test code = 13 mg/dL 7-23 2241838117) GLUCOSE (test code = 106 mg/dL 70-110 3560923065) CREATININE (test code 0.58 mg/dL 0.5-1.04 = 6410172075) CALCIUM (test code = 8.6 mg/dL 8.6-10.6 9511815885) eGFR (test code = mL/min/1.73m2 3033543419) MEDHAT (test code = MEDHAT) Association of [...] or urine or abnormalities in imaging tests). [facility] METABOLIC PANEL (NA, K, CL, CO2, GLUCOSE, BUN, CREATININE, CA)2022-04-05 11:08:28 Test Item Value Reference Range Interpretation Comments NA (test code = 137 mmol/L 135-145 0732476033) K (test code = 3.8 mmol/L 3.5-5 1697091040) CL (test code = 104 mmol/L 98-108 6594009836) CO2 TOTAL (test code 27 mmol/L 23-31 = 0887783575) AGAP (test code = 2-16 0349731974) BUN (test code = 13 mg/dL 7-23 7837676927) GLUCOSE (test code = 106 mg/dL 70-110 1763161370) CREATININE (test code 0.58 mg/dL 0.5-1.04 = 5249859530) CALCIUM (test code = 8.6 mg/dL 8.6-10.6 0088619378) eGFR (test code = mL/min/1.73m2 8054796174) MEDHAT (test code = MEDHAT) Association of [...] or urine or abnormalities in imaging tests). [facility] METABOLIC PANEL (NA, K, CL, CO2, GLUCOSE, BUN, CREATININE, CA)2022-04-05 11:08:28 Test Item Value Reference Range Interpretation Comments NA (test code = 137 mmol/L 135-145 2333838277) K (test code = 3.8 mmol/L 3.5-5 9452094562) CL (test code = 104 mmol/L 98-108 5923983058) CO2 TOTAL (test code 27 mmol/L 23-31 = 0619221575) AGAP (test code = 2-16 2064703692) BUN (test code = 13 mg/dL 7-23 7617806980) GLUCOSE (test code = 106 mg/dL 70-110 9845142010) CREATININE (test code 0.58 mg/dL 0.5-1.04 = 7252621802) CALCIUM (test code = 8.6 mg/dL 8.6-10.6 4567929599) eGFR (test code = mL/min/1.73m2 2647053890) MEDHAT (test code = MEDHAT) Association of [...] or urine or abnormalities in imaging tests). [facility] METABOLIC PANEL (NA, K, CL, CO2, GLUCOSE, BUN, CREATININE, CA)2022-04-05 11:08:28 Test Item Value Reference Range Interpretation Comments NA (test code = 137 mmol/L 135-145 8022768964) K (test code = 3.8 mmol/L 3.5-5 3020334989) CL (test code = 104 mmol/L 98-108 3517469091) CO2 TOTAL (test code 27 mmol/L 23-31 = 7713715215) AGAP (test code = 2-16 4736462497) BUN (test code = 13 mg/dL 7-23 7619142910) GLUCOSE (test code = 106 mg/dL 70-110 3349291797) CREATININE (test code 0.58 mg/dL 0.5-1.04 = 9690722449) CALCIUM (test code = 8.6 mg/dL 8.6-10.6 1987450423) eGFR (test code = mL/min/1.73m2 5220869580) MEDHAT (test code = MEDHAT) Association of [...] or urine or abnormalities in imaging tests). [facility] METABOLIC PANEL (NA, K, CL, CO2, GLUCOSE, BUN, CREATININE, CA)2022-04-05 11:08:28 Test Item Value Reference Range Interpretation Comments NA (test code = 137 mmol/L 135-145 4445188320) K (test code = 3.8 mmol/L 3.5-5 1669711196) CL (test code = 104 mmol/L 98-108 7514022265) CO2 TOTAL (test code 27 mmol/L 23-31 = 6017305113) AGAP (test code = 2-16 7613699878) BUN (test code = 13 mg/dL 7-23 2262694507) GLUCOSE (test code = 106 mg/dL 70-110 5655845382) CREATININE (test code 0.58 mg/dL 0.5-1.04 = 5111872164) CALCIUM (test code = 8.6 mg/dL 8.6-10.6 3316663871) eGFR (test code = mL/min/1.73m2 8381743719) MEDHAT (test code = MEDHAT) Association of [...] abnormalities in imaging tests). [facility] (NA, K, CL, CO2, GLUCOSE, BUN, CREATININE, CA)2022-04-05 11:08:28 Test Item Value Reference Range Interpretation Comments NA (test code = 137 mmol/L 135-145 9203165791) K (test code = 3.8 mmol/L 3.5-5 5938664995) CL (test code = 104 mmol/L 98-108 8929102665) CO2 TOTAL (test code 27 mmol/L 23-31 = 8792868277) AGAP (test code = 2-16 1073720990) BUN (test code = 13 mg/dL 7-23 7024229764) GLUCOSE (test code = 106 mg/dL 70-110 0089725035) CREATININE (test code 0.58 mg/dL 0.5-1.04 = 8942547600) CALCIUM (test code = 8.6 mg/dL 8.6-10.6 4544851526) eGFR (test code = mL/min/1.73m2 9796377897) MEDHAT (test code = MEDHAT) Association of [...] abnormalities in imaging tests). [facility] (NA, K, CL, CO2, GLUCOSE, BUN, CREATININE, CA)2022-04-05 11:08:28 Test Item Value Reference Range Interpretation Comments NA (test code = 137 mmol/L 135-145 4635807884) K (test code = 3.8 mmol/L 3.5-5 8147658930) CL (test code = 104 mmol/L 98-108 6695909700) CO2 TOTAL (test code 27 mmol/L 23-31 = 8824748580) AGAP (test code = 2-16 6657087640) BUN (test code = 13 mg/dL 7-23 3763249180) GLUCOSE (test code = 106 mg/dL 70-110 5431562124) CREATININE (test code 0.58 mg/dL 0.5-1.04 = 6452037245) CALCIUM (test code = 8.6 mg/dL 8.6-10.6 8958383732) eGFR (test code = mL/min/1.73m2 9148254894) MEDHAT (test code = MEDHAT) Association of [...] or urine or abnormalities in imaging tests). [facility] METABOLIC PANEL (NA, K, CL, CO2, GLUCOSE, BUN, CREATININE, CA)2022-04-05 11:08:28 Test Item Value Reference Range Interpretation Comments NA (test code = 137 mmol/L 135-145 6849496869) K (test code = 3.8 mmol/L 3.5-5 2561427197) CL (test code = 104 mmol/L 98-108 3648259996) CO2 TOTAL (test code 27 mmol/L 23-31 = 5742378574) AGAP (test code = 2-16 5624745970) BUN (test code = 13 mg/dL 7-23 1803552063) GLUCOSE (test code = 106 mg/dL 70-110 1615715666) CREATININE (test code 0.58 mg/dL 0.5-1.04 = 6896448621) CALCIUM (test code = 8.6 mg/dL 8.6-10.6 2798529839) eGFR (test code = mL/min/1.73m2 3950528440) MEDHAT (test code = MEDHAT) Association of [...] or urine or abnormalities in imaging tests). [facility] METABOLIC PANEL (NA, K, CL, CO2, GLUCOSE, BUN, CREATININE, CA)2022-04-05 11:08:28 Test Item Value Reference Range Interpretation Comments NA (test code = 137 mmol/L 135-145 0398978286) K (test code = 3.8 mmol/L 3.5-5 3851789692) CL (test code = 104 mmol/L 98-108 5074578080) CO2 TOTAL (test code 27 mmol/L 23-31 = 6719262231) AGAP (test code = 2-16 2035574743) BUN (test code = 13 mg/dL 7-23 4614476115) GLUCOSE (test code = 106 mg/dL 70-110 1283971615) CREATININE (test code 0.58 mg/dL 0.5-1.04 = 3124114010) CALCIUM (test code = 8.6 mg/dL 8.6-10.6 3898115794) eGFR (test code = mL/min/1.73m2 7027890196) MEDHAT (test code = MEDHAT) Association of [...] or urine or abnormalities in imaging tests). [facility] METABOLIC PANEL (NA, K, CL, CO2, GLUCOSE, BUN, CREATININE, CA)2022-04-05 11:08:28 Test Item Value Reference Range Interpretation Comments NA (test code = 137 mmol/L 135-145 8865597003) K (test code = 3.8 mmol/L 3.5-5 6904744310) CL (test code = 104 mmol/L 98-108 5350434389) CO2 TOTAL (test code 27 mmol/L 23-31 = 7668904376) AGAP (test code = 2-16 5052978195) BUN (test code = 13 mg/dL 7-23 7413406613) GLUCOSE (test code = 106 mg/dL 70-110 6727659575) CREATININE (test code 0.58 mg/dL 0.5-1.04 = 9740112292) CALCIUM (test code = 8.6 mg/dL 8.6-10.6 9472223557) eGFR (test code = mL/min/1.73m2 5134529482) MEDHAT (test code = MEDHAT) Association of [...] or urine or abnormalities in imaging tests). [facility] METABOLIC PANEL (NA, K, CL, CO2, GLUCOSE, BUN, CREATININE, CA)2022-04-05 11:08:28 Test Item Value Reference Range Interpretation Comments NA (test code = 137 mmol/L 135-145 5594008514) K (test code = 3.8 mmol/L 3.5-5 6692158346) CL (test code = 104 mmol/L 98-108 3789287322) CO2 TOTAL (test code 27 mmol/L 23-31 = 8211441607) AGAP (test code = 2-16 8713559896) BUN (test code = 13 mg/dL 7-23 4642594343) GLUCOSE (test code = 106 mg/dL 70-110 6670062900) CREATININE (test code 0.58 mg/dL 0.5-1.04 = 3008461851) CALCIUM (test code = 8.6 mg/dL 8.6-10.6 4898041169) eGFR (test code = mL/min/1.73m2 2442775632) MEDHAT (test code = MEDHAT) Association of [...] or urine or abnormalities in imaging tests). [facility] METABOLIC PANEL (NA, K, CL, CO2, GLUCOSE, BUN, CREATININE, CA)2022-04-05 11:08:28 Test Item Value Reference Range Interpretation Comments NA (test code = 137 mmol/L 135-145 2910440308) K (test code = 3.8 mmol/L 3.5-5 6560796545) CL (test code = 104 mmol/L 98-108 7793489133) CO2 TOTAL (test code 27 mmol/L 23-31 = 5855163229) AGAP (test code = 2-16 5161669601) BUN (test code = 13 mg/dL 7-23 4413879782) GLUCOSE (test code = 106 mg/dL 70-110 7781460424) CREATININE (test code 0.58 mg/dL 0.5-1.04 = 6847973770) CALCIUM (test code = 8.6 mg/dL 8.6-10.6 1404703756) eGFR (test code = mL/min/1.73m2 8471376767) MEDHAT (test code = MEDHAT) Association of [...] or urine or abnormalities in imaging tests). [facility] METABOLIC PANEL (NA, K, CL, CO2, GLUCOSE, BUN, CREATININE, CA)2022-04-05 11:08:28 Test Item Value Reference Range Interpretation Comments NA (test code = 137 mmol/L 135-145 0053171357) K (test code = 3.8 mmol/L 3.5-5 5202849429) CL (test code = 104 mmol/L 98-108 4534097342) CO2 TOTAL (test code 27 mmol/L 23-31 = 9485080237) AGAP (test code = 2-16 3379465814) BUN (test code = 13 mg/dL 7-23 6600049350) GLUCOSE (test code = 106 mg/dL 70-110 8061671453) CREATININE (test code 0.58 mg/dL 0.5-1.04 = 8822212063) CALCIUM (test code = 8.6 mg/dL 8.6-10.6 4121645307) eGFR (test code = mL/min/1.73m2 7774978412) MEDHAT (test code = MEDHAT) Association of [...] or urine or abnormalities in imaging tests). [facility] METABOLIC PANEL (NA, K, CL, CO2, GLUCOSE, BUN, CREATININE, CA)2022-04-05 11:08:28 Test Item Value Reference Range Interpretation Comments NA (test code = 137 mmol/L 135-145 3853700906) K (test code = 3.8 mmol/L 3.5-5 9411132444) CL (test code = 104 mmol/L 98-108 8365133559) CO2 TOTAL (test code 27 mmol/L 23-31 = 9113485204) AGAP (test code = 2-16 5412359990) BUN (test code = 13 mg/dL 7-23 8468187267) GLUCOSE (test code = 106 mg/dL 70-110 1886988604) CREATININE (test code 0.58 mg/dL 0.5-1.04 = 8750017153) CALCIUM (test code = 8.6 mg/dL 8.6-10.6 3760964611) eGFR (test code = mL/min/1.73m2 2956233535) MEDHAT (test code = MEDHAT) Association of [...] or urine or abnormalities in imaging tests). [facility] METABOLIC PANEL (NA, K, CL, CO2, GLUCOSE, BUN, CREATININE, CA)2022-04-05 11:08:28 Test Item Value Reference Range Interpretation Comments NA (test code = 137 mmol/L 135-145 3163841410) K (test code = 3.8 mmol/L 3.5-5 8046561042) CL (test code = 104 mmol/L 98-108 5735987425) CO2 TOTAL (test code 27 mmol/L 23-31 = 0409389037) AGAP (test code = 2-16 4509313865) BUN (test code = 13 mg/dL 7-23 5935818353) GLUCOSE (test code = 106 mg/dL 70-110 2550946787) CREATININE (test code 0.58 mg/dL 0.5-1.04 = 1977996513) CALCIUM (test code = 8.6 mg/dL 8.6-10.6 0901346589) eGFR (test code = mL/min/1.73m2 1320955564) MEDHAT (test code = MEDHAT) Association of [...] or urine or abnormalities in imaging tests). [facility] METABOLIC PANEL (NA, K, CL, CO2, GLUCOSE, BUN, CREATININE, CA)2022-04-05 11:08:28 Test Item Value Reference Range Interpretation Comments NA (test code = 137 mmol/L 135-145 3301401389) K (test code = 3.8 mmol/L 3.5-5.0 5737454769) CL (test code = 104 mmol/L 98-108 4933234360) CO2 TOTAL (test code 27 mmol/L 23-31 = 9152144244) AGAP (test code = 2-16 2328670118) BUN (test code = 13 mg/dL 7-23 1019380937) GLUCOSE (test code = 106 mg/dL 70-110 5164129476) CREATININE (test code 0.58 mg/dL 0.50-1.04 = 2387599452) CALCIUM (test code = 8.6 mg/dL 8.6-10.6 2845101369) eGFR (test code = mL/min/1.73m2 5837706443) MEDHAT (test code = MEDHAT) Association of [...] or urine or abnormalities in imaging tests). [facility] METABOLIC PANEL (NA, K, CL, CO2, GLUCOSE, BUN, CREATININE, CA)2022-04-05 11:08:28 Test Item Value Reference Range Interpretation Comments NA (test code = 137 mmol/L 135-145 6656137436) K (test code = 3.8 mmol/L 3.5-5.0 2796551768) CL (test code = 104 mmol/L 98-108 3206456750) CO2 TOTAL (test code 27 mmol/L 23-31 = 4382503845) AGAP (test code = 2-16 1646552556) BUN (test code = 13 mg/dL 7-23 3159202450) GLUCOSE (test code = 106 mg/dL 70-110 3591585918) CREATININE (test code 0.58 mg/dL 0.50-1.04 = 7063045285) CALCIUM (test code = 8.6 mg/dL 8.6-10.6 4218875228) eGFR (test code = mL/min/1.73m2 0377795035) EMDHAT (test code = MEDHAT) Association of Glomerular [...] abnormalities in imaging tests). [facility] (NA, K, CL, CO2, GLUCOSE, BUN, CREATININE, CA)2022-04-05 11:08:28 Test Item Value Reference Range Interpretation Comments NA (test code = 137 mmol/L 135-145 6785457675) K (test code = 3.8 mmol/L 3.5-5.0 5376319631) CL (test code = 104 mmol/L 98-108 1044117280) CO2 TOTAL (test code 27 mmol/L 23-31 = 1920324936) AGAP (test code = 2-16 0651339506) BUN (test code = 13 mg/dL 7-23 2400314290) GLUCOSE (test code = 106 mg/dL 70-110 4460374065) CREATININE (test code 0.58 mg/dL 0.50-1.04 = 9063464885) CALCIUM (test code = 8.6 mg/dL 8.6-10.6 2502630120) eGFR (test code = mL/min/1.73m2 7010429058) MEDHAT (test code = MEDHAT) Association of [...] or urine or abnormalities in imaging tests). [facility] METABOLIC PANEL (NA, K, CL, CO2, GLUCOSE, BUN, CREATININE, CA)2022-04-05 11:08:28 Test Item Value Reference Range Interpretation Comments NA (test code = 137 mmol/L 135-145 9403705233) K (test code = 3.8 mmol/L 3.5-5.0 2338285454) CL (test code = 104 mmol/L 98-108 5907401943) CO2 TOTAL (test code 27 mmol/L 23-31 = 2459753940) AGAP (test code = 2-16 8997139060) BUN (test code = 13 mg/dL 7-23 7121019690) GLUCOSE (test code = 106 mg/dL 70-110 7761106302) CREATININE (test code 0.58 mg/dL 0.50-1.04 = 5591175311) CALCIUM (test code = 8.6 mg/dL 8.6-10.6 0275818808) eGFR (test code = mL/min/1.73m2 7045125434) MEDHAT (test code = MEDHAT) Association of [...] or urine or abnormalities in imaging tests). [facility] METABOLIC PANEL (NA, K, CL, CO2, GLUCOSE, BUN, CREATININE, CA)2022-04-05 11:08:28 Test Item Value Reference Range Interpretation Comments NA (test code = 137 mmol/L 135-145 8145146531) K (test code = 3.8 mmol/L 3.5-5.0 0359287300) CL (test code = 104 mmol/L 98-108 8681489306) CO2 TOTAL (test code 27 mmol/L 23-31 = 1570634514) AGAP (test code = 2-16 8989114687) BUN (test code = 13 mg/dL 7-23 4742284585) GLUCOSE (test code = 106 mg/dL 70-110 3168177163) CREATININE (test code 0.58 mg/dL 0.50-1.04 = 8405623796) CALCIUM (test code = 8.6 mg/dL 8.6-10.6 0736477464) eGFR (test code = mL/min/1.73m2 4368685684) MEDHAT (test code = MEDHAT) Association of [...] or urine or abnormalities in imaging tests). [facility] METABOLIC PANEL (NA, K, CL, CO2, GLUCOSE, BUN, CREATININE, CA)2022-04-05 11:08:28 Test Item Value Reference Range Interpretation Comments NA (test code = 137 mmol/L 135-145 4188227142) K (test code = 3.8 mmol/L 3.5-5.0 7895399407) CL (test code = 104 mmol/L 98-108 7115029210) CO2 TOTAL (test code 27 mmol/L 23-31 = 1761980497) AGAP (test code = 2-16 7461893217) BUN (test code = 13 mg/dL 7-23 5205490805) GLUCOSE (test code = 106 mg/dL 70-110 7214960072) CREATININE (test code 0.58 mg/dL 0.50-1.04 = 0913346797) CALCIUM (test code = 8.6 mg/dL 8.6-10.6 1978132430) eGFR (test code = mL/min/1.73m2 2253748242) MEDHAT (test code = MEDHAT) Association of [...] or urine or abnormalities in imaging tests). [facility] METABOLIC PANEL (NA, K, CL, CO2, GLUCOSE, BUN, CREATININE, CA)2022-04-05 11:08:28 Test Item Value Reference Range Interpretation Comments NA (test code = 137 mmol/L 135-145 8078639660) K (test code = 3.8 mmol/L 3.5-5.0 3746134690) CL (test code = 104 mmol/L 98-108 8054493846) CO2 TOTAL (test code 27 mmol/L 23-31 = 2082834504) AGAP (test code = 2-16 7471118517) BUN (test code = 13 mg/dL 7-23 4458159382) GLUCOSE (test code = 106 mg/dL 70-110 6163455474) CREATININE (test code 0.58 mg/dL 0.50-1.04 = 7781989243) CALCIUM (test code = 8.6 mg/dL 8.6-10.6 3280731165) eGFR (test code = mL/min/1.73m2 0377726596) MEDHAT (test code = MEDHAT) Association of [...] abnormalities in imaging tests). [facility] (NA, K, CL, CO2, GLUCOSE, BUN, CREATININE, CA)2022-04-05 11:08:28 Test Item Value Reference Range Interpretation Comments NA (test code = 137 mmol/L 135-145 6220431877) K (test code = 3.8 mmol/L 3.5-5.0 4058238865) CL (test code = 104 mmol/L 98-108 3507980510) CO2 TOTAL (test code 27 mmol/L 23-31 = 4722078209) AGAP (test code = 2-16 1544041634) BUN (test code = 13 mg/dL 7-23 1674385648) GLUCOSE (test code = 106 mg/dL 70-110 3159283575) CREATININE (test code 0.58 mg/dL 0.50-1.04 = 1723775423) CALCIUM (test code = 8.6 mg/dL 8.6-10.6 9075323967) eGFR (test code = mL/min/1.73m2 4086227517) MEDHAT (test code = MEDHAT) Association of [...] or urine or abnormalities in imaging tests). [facility] METABOLIC PANEL (NA, K, CL, CO2, GLUCOSE, BUN, CREATININE, CA)2022-04-05 11:08:28 Test Item Value Reference Range Interpretation Comments NA (test code = 137 mmol/L 135-145 1124103820) K (test code = 3.8 mmol/L 3.5-5.0 3450844781) CL (test code = 104 mmol/L 98-108 6074437772) CO2 TOTAL (test code 27 mmol/L 23-31 = 0496324087) AGAP (test code = 2-16 6150535853) BUN (test code = 13 mg/dL 7-23 4291279390) GLUCOSE (test code = 106 mg/dL 70-110 5034303994) CREATININE (test code 0.58 mg/dL 0.50-1.04 = 5502275408) CALCIUM (test code = 8.6 mg/dL 8.6-10.6 7038455030) eGFR (test code = mL/min/1.73m2 0250813319) MEDHAT (test code = MEDHAT) Association of [...] urine or abnormalities in imaging tests). [facility] with [id number] 10:50:28 Test Item Value Reference Range Interpretation [...] RDW-SD (test code = 43.6 fL 39-49.9 09950-1) RDW-CV (test code = 13.6 % 12-15.5 788-0) PLT (test code = See_Comment [Automated 777-3) message] The sy stem which generated this result transmitted reference range : 166 - 358 10*3/ ?L. The reference r mann was not used to interpret this result as normal/abnormal . MPV (test code = 9.9 fL 9.5-12.9 22732-7) NRBC/100 WBC (test See_Comment [Automat ed code = 1861693653) message] The system which generated this result transmitted reference range : 0.0 - 10.0 /100 WBCs. The refer ence range was not u sed to interpret th is result as normal/abnormal . NRBC x10^3 (test code See_Comment [Auto mated = 5768768924) message] The s ystem which generated this result transmitted reference range : 10*3/?L. The reference range was not used to interpret this result as normal/abnormal . GRAN MAT (NEUT) % 65.5 % (test code = 770-8) IMM GRAN % (test code 0.30 % = 2829170429) LYMPH % (test code = 25.3 % 736-9) MONO % (test code = 8.4 % 5905-5) EOS % (test code = 0.0 % 713-8) BASO % (test code = 0.5 % 706-2) GRAN MAT x10^3(ANC) 6.56 10*3/uL 1.88-7.09 (test code = 1786088532) IMM GRAN x10^3 (test 0.03 10*3/uL 0-0.06 code = 7670913809) LYMPH x10^3 (test code 2.53 10*3/uL 1.32-3.29 = 731-0) MONO x10^3 (test code 0.84 10*3/uL 0.33-0.92 = 742-7) EOS x10^3 (test code = 0.03-0.39 L 711-2) BASO x10^3 (test code 0.05 10*3/uL 0.01-0.07 = 704-7) Lab Interpretation Abnormal (test code = 25147-4) [facility] with [id number] 10:50:28 Test Item Value Reference Range Interpretation Comments WBC (test code = See_Comment [Automated 1290-2) message] The sy stem which generated this result transmitted reference range : 4.30 - 11.10 10*3/?L. The reference range was not used to interpret this result as normal/abnormal . RBC (test code = See_Comment [Automated 609-8) message] The sy stem which generated this [...] RDW-SD (test code = 43.6 fL 39-49.9 21645-3) RDW-CV (test code = 13.6 % 12-15.5 788-0) PLT (test code = See_Comment [Automated 777-3) message] The sy stem which generated this result transmitted reference range : 166 - 358 10*3/ ?L. The reference r mann was not used to interpret this result as normal/abnormal . MPV (test code = 9.9 fL 9.5-12.9 89122-4) NRBC/100 WBC (test See_Comment [Automat ed code = [id number]) message] The system which generated this result transmitted reference range : 0.0 - 10.0 /100 WBCs. The refer ence range was not u sed to interpret th is result as normal/abnormal . NRBC x10^3 (test code See_Comment [Auto mated = [id number]) message] The s ystem which generated this result transmitted reference range : 10*3/?L. The reference range was not used to interpret this result as normal/abnormal . GRAN MAT (NEUT) % 65.5 % (test code = 770-8) IMM GRAN % (test code 0.30 % = [id number]) LYMPH % (test code = 25.3 % 736-9) MONO % (test code = 8.4 % 5905-5) EOS % (test code = 0.0 % 713-8) BASO % (test code = 0.5 % 706-2) GRAN MAT x10^3(ANC) 6.56 10*3/uL 1.88-7.09 (test code = [id number]) IMM GRAN x10^3 (test 0.03 10*3/uL 0-0.06 code = [id number]) LYMPH x10^3 (test code 2.53 10*3/uL 1.32-3.29 = 731-0) MONO x10^3 (test code 0.84 10*3/uL 0.33-0.92 = 742-7) EOS x10^3 (test code = 0.03-0.39 L 711-2) BASO x10^3 (test code 0.05 10*3/uL 0.01-0.07 = 704-7) Lab Interpretation Abnormal (test code = 20732-0) [facility] [id number] 01:03:38 Test Item Value Reference Interpretation Comments Range TROPONIN I (test 0.001 ng/mL See_Comment [Automated code = [id number]) message] The system which generated this result [...] biotin. Lab Interpretation Normal (test code = 50163-8) [facility] [id number] 01:03:38 Test Item Value Reference Interpretation Comments Range TROPONIN I (test 0.001 ng/mL See_Comment [Automated code = 6248317196) message] The system which generated this result [...] biotin. Lab Interpretation Normal (test code = 81545-5) [facility] [id number] 01:03:38 Test Item Value Reference Interpretation Comments Range TROPONIN I (test 0.001 ng/mL See_Comment [Automated code = 3529446136) message] The system which generated this result [...] biotin. Lab Interpretation Normal (test code = 32700-0) [facility] [id number] 01:03:38 Test Item Value Reference Interpretation Comments Range TROPONIN I (test 0.001 ng/mL See_Comment [Automated code = 2859857375) message] The system which generated this result [...] biotin. Lab Interpretation Normal (test code = 99610-2) [facility] [id number] 01:03:38 Test Item Value Reference Interpretation Comments Range TROPONIN I (test 0.001 ng/mL See_Comment [Automated code = 9737745237) message] The system which generated this result [...] biotin. Lab Interpretation Normal (test code = 64690-8) [facility] [id number] 01:03:38 Test Item Value Reference Interpretation Comments Range TROPONIN I (test 0.001 ng/mL See_Comment [Automated code = 2824498132) message] The system which generated this result [...] biotin. Lab Interpretation Normal (test code = 78463-9) [facility] [id number] 01:03:38 Test Item Value Reference Interpretation Comments Range TROPONIN I (test 0.001 ng/mL See_Comment [Automated code = 3268391612) message] The system which generated this result [...] biotin. Lab Interpretation Normal (test code = 69600-8) [facility] [id number] 01:03:38 Test Item Value Reference Interpretation Comments Range TROPONIN I (test 0.001 ng/mL See_Comment [Automated code = 1303210060) message] The system which generated this result [...] biotin. Lab Interpretation Normal (test code = 74712-4) [facility] [id number] 01:03:38 Test Item Value Reference Interpretation Comments Range TROPONIN I (test 0.001 ng/mL See_Comment [Automated code = 9951646651) message] The system which generated this result [...] biotin. Lab Interpretation Normal (test code = 10358-6) [facility] [id number] 01:03:38 Test Item Value Reference Interpretation Comments Range TROPONIN I (test 0.001 ng/mL See_Comment [Automated code = 0746859475) message] The system which generated this result [...] biotin. Lab Interpretation Normal (test code = 96238-8) [facility] [id number] 01:03:38 Test Item Value Reference Interpretation Comments Range TROPONIN I (test 0.001 ng/mL See_Comment [Automated code = 2853209110) message] The system which generated this result [...] biotin. Lab Interpretation Normal (test code = 30878-5) [facility] [id number] 01:03:38 Test Item Value Reference Interpretation Comments Range TROPONIN I (test 0.001 ng/mL See_Comment [Automated code = 6683838715) message] The system which generated this result [...] biotin. Lab Interpretation Normal (test code = 95956-6) [facility] [id number] 01:03:38 Test Item Value Reference Interpretation Comments Range TROPONIN I (test 0.001 ng/mL See_Comment [Automated code = 7678216804) message] The system which generated this result [...] biotin. Lab Interpretation Normal (test code = 41193-1) [facility] [id number] 01:03:38 Test Item Value Reference Interpretation Comments Range TROPONIN I (test 0.001 ng/mL See_Comment [Automated code = 2692569781) message] The system which generated this result [...] biotin. Lab Interpretation Normal (test code = 49029-5) [facility] [id number] 01:03:38 Test Item Value Reference Interpretation Comments Range TROPONIN I (test 0.001 ng/mL See_Comment [Automated code = 8532133351) message] The system which generated this result [...] biotin. Lab Interpretation Normal (test code = 74940-9) [facility] [id number] 01:03:38 Test Item Value Reference Interpretation Comments Range TROPONIN I (test 0.001 ng/mL See_Comment [Automated code = 2158343808) message] The system which generated this result [...] biotin. Lab Interpretation Normal (test code = 22036-7) [facility] [id number] 01:03:38 Test Item Value Reference Interpretation Comments Range TROPONIN I (test 0.001 ng/mL See_Comment [Automated code = 4270785339) message] The system which generated this result [...] biotin. Lab Interpretation Normal (test code = 54150-3) [facility] [id number] 01:03:38 Test Item Value Reference Interpretation Comments Range TROPONIN I (test 0.001 ng/mL See_Comment [Automated code = 4304451968) message] The system which generated this result [...] biotin. Lab Interpretation Normal (test code = 84957-8) [facility] [id number] 01:03:38 Test Item Value Reference Interpretation Comments Range TROPONIN I (test 0.001 ng/mL See_Comment [Automated code = 4891023714) message] The system which generated this result [...] biotin. Lab Interpretation Normal (test code = 58937-6) [facility] [id number] 01:03:38 Test Item Value Reference Interpretation Comments Range TROPONIN I (test 0.001 ng/mL See_Comment [Automated code = 3574221559) message] The system which generated this result [...] biotin. Lab Interpretation Normal (test code = 72624-2) [facility] [id number] 01:03:38 Test Item Value Reference Interpretation Comments Range TROPONIN I (test 0.001 ng/mL See_Comment [Automated code = 6944376423) message] The system which generated this result [...] biotin. Lab Interpretation Normal (test code = 42693-5) [facility] [id number] 01:03:38 Test Item Value Reference Interpretation Comments Range TROPONIN I (test 0.001 ng/mL See_Comment [Automated code = 5291858957) message] The system which generated this result [...] biotin. Lab Interpretation Normal (test code = 54917-3) [facility] [id number] 01:03:38 Test Item Value Reference Interpretation Comments Range TROPONIN I (test 0.001 ng/mL See_Comment [Automated code = 3492498069) message] The system which generated this result [...] biotin. Lab Interpretation Normal (test code = 20936-3) [facility] [id number] 01:03:38 Test Item Value Reference Interpretation Comments Range TROPONIN I (test 0.001 ng/mL See_Comment [Automated code = 0095476057) message] The system which generated this result [...] biotin. Lab Interpretation Normal (test code = 68929-9) [facility] and Screen - ONCE [id number] 21:06:03 Test Item Value Reference Range Interpretation Comments ABO & RH (test code A Positive Performe d at [facility] = 20) Laboratory [facility] [place] [address] Free: [phone] A No. [id number] IAT (test code = Negative Performed a t [facility] 1185) Laboratory [facility] [place], [place] [address]Toll Free: [phone] A No. [id number] [facility] Screen - ONCE [id number] 21:06:03 Test Item Value Reference Range Interpretation Comments ABO & RH (test code A Positive Performe d at [facility] = 20) Laboratory [facility] [place], [place] [address]Toll Free: [phone] A No. [id number] IAT (test code = Negative Performed a t [facility] 1185) Laboratory [facility] [place], [place] [address]Toll Free: [phone] A No. [id number] [facility] Screen - ONCE [id number] 21:06:03 Test Item Value Reference Range Interpretation Comments ABO & RH (test code A Positive Performe d at [facility] = 20) Laboratory [facility] [place], [place] [address]Toll Free: [phone] A No. [id number] IAT (test code = Negative Performed a t [facility] 1185) Laboratory [facility] Blood [place] [address]Toll Free: [phone] A No. [id number] [facility] Screen - ONCE [id number] 21:06:03 Test Item Value Reference Range Interpretation Comments ABO & RH (test code A Positive Performe d at [facility] = 20) Laboratory [facility] Blood [place] [address]Toll Free: [phone] A No. [id number] IAT (test code = Negative Performed a t [facility] 1185) Laboratory [facility] Blood [place] [address]Toll Free: [phone] A No. [id number] [facility] Screen - ONCE [id number] 21:06:03 Test Item Value Reference Range Interpretation Comments ABO & RH (test code A Positive Performe d at [facility] = 20) Laboratory [facility] Blood [place] [address]Toll Free: [phone] A No. [id number] IAT (test code = Negative Performed a t [facility] 1185) Laboratory [facility] [place], [place] [address]Toll Free: [phone] A No. [id number] [facility] Screen - ONCE [id number] 21:06:03 Test Item Value Reference Range Interpretation Comments ABO & RH (test code A Positive Performe d at [facility] = 20) Laboratory [facility] [place], [place] [address]Toll Free: [phone] A No. [id number] IAT (test code = Negative Performed a t [facility] 1185) Laboratory [facility] [place], [place] [address]Toll Free: [phone] A No. [id number] [facility] Screen - ONCE [id number] 21:06:03 Test Item Value Reference Range Interpretation Comments ABO & RH (test code A Positive Performe d at [facility] = 20) Laboratory [facility] Blood [place] [address]Toll Free: [phone] A No. [id number] IAT (test code = Negative Performed a t [facility] 1185) Laboratory [facility] Blood [place] [address]Toll Free: [phone] A No. [id number] [facility] Screen - ONCE [id number] 21:06:03 Test Item Value Reference Range Interpretation Comments ABO & RH (test code A Positive Performe d at [facility] = 20) Laboratory [facility] Blood [place] [address]Toll Free: [phone] A No. [id number] IAT (test code = Negative Performed a t [facility] 1185) Laboratory [facility] Blood [address]oll Free: [phone] A No. [id number] [facility] Screen - ONCE [id number] 21:06:03 Test Item Value Reference Range Interpretation Comments ABO & RH (test code A Positive Performe d at [facility] = 20) Laboratory [facility] Blood [place] [address]Toll Free: [phone] A No. [id number] IAT (test code = Negative Performed a t [facility] 1185) Laboratory [facility] [place], [place] [address]Toll Free: [phone] A No. [id number] [facility] [id number] 21:06:03 Test Item Value Reference Range Interpretation Comments ABO & RH (test code A Positive Performe d at [facility] = 20) Laboratory [facility] Blood [place] [address]Toll Free: [phone] A No. [id number] IAT (test code = Negative Performed a t [facility] 1185) Laboratory [facility] Blood [place] [address]Toll Free: [phone] A No. [id number] [facility] Screen - ONCE [id number] 21:06:03 Test Item Value Reference Range Interpretation Comments ABO & RH (test code A Positive Performe d at [facility] = 20) Laboratory [facility] Blood [place] [address]Toll Free: [phone] A No. [id number] IAT (test code = Negative Performed a t [facility] 1185) Laboratory [facility] Blood [place] [address]Toll Free: [phone] A No. [id number] [facility] Screen - ONCE [id number] 21:06:03 Test Item Value Reference Range Interpretation Comments ABO & RH (test code A Positive Performe d at [facility] = 20) Laboratory [facility] Blood [address]Toll Free: [phone] A No. [id number] IAT (test code = Negative Performed a t [facility] 1185) Laboratory [facility] [place], [place] [address]oll Free: [phone] A No. [id number] [facility] Screen - ONCE [id number] 21:06:03 Test Item Value Reference Range Interpretation Comments ABO & RH (test code A Positive Performe d at [facility] = 20) Laboratory [facility] [place], [place] [address]Toll Free: [phone] A No. [id number] IAT (test code = Negative Performed a t [facility] 1185) Laboratory [facility] Blood [place] [address]Toll Free: [phone] A No. [id number] [facility] [id number] 21:06:03 Test Item Value Reference Range Interpretation Comments ABO & RH (test code A Positive Performe d at [facility] = 20) Laboratory [facility] Blood [place] [address]Toll Free: [phone] A No. [id number] IAT (test code = Negative Performed a t [facility] 1185) Laboratory [facility] Blood [place] [address]Toll Free: [phone] A No. [id number] [facility] [id number] 21:06:03 Test Item Value Reference Range Interpretation Comments ABO & RH (test code A Positive Performe d at [facility] = 20) Laboratory [facility] Blood [place] [address]Toll Free: [phone] A No. [id number] IAT (test code = Negative Performed a t [facility] 1185) Laboratory [facility] [place], [place] [address]Toll Free: [phone] A No. [id number] [facility] [id number] 21:06:03 Test Item Value Reference Range Interpretation Comments ABO & RH (test code A Positive Performe d at [facility] = 20) Laboratory [facility] [place], [place] [address] Free: [phone] A No. [id number] IAT (test code = Negative Performed a t [facility] 1185) Laboratory [facility] [place], [place] [address]Toll Free: [phone] A No. [id number] [facility] and Screen - ONCE [id number] 21:06:03 Test Item Value Reference Range Interpretation Comments ABO & RH (test code A Positive Performe d at [facility] = 20) Laboratory [facility] [place], [place] [address]Toll Free: [phone] A No. [id number] IAT (test code = Negative Performed a t [facility] 1185) Laboratory [facility] Blood [place] [address]Toll Free: [phone] A No. [id number] [facility] and Screen - ONCE [id number] 21:06:03 Test Item Value Reference Range Interpretation Comments ABO & RH (test code A Positive Performe d at [facility] = 20) Laboratory [facility] [place], [place] [address]Toll Free: [phone] A No. [id number] IAT (test code = Negative Performed a t [facility] 1185) Laboratory [facility] [place], [place] [address]Toll Free: [phone] A No. [id number] [facility] Screen - ONCE [id number] 21:06:03 Test Item Value Reference Range Interpretation Comments ABO & RH (test code A Positive Performe d at [facility] = 20) Laboratory [facility] [place] [address]q Free: [phone] A No. [id number] IAT (test code = Negative Performed a t [facility] 1185) Laboratory [facility] [place], [place] [address] Free: [phone] A No. [id number] [facility] and Screen - ONCE [id number] 21:06:03 Test Item Value Reference Range Interpretation Comments ABO & RH (test code A Positive Performe d at [facility] = 20) Laboratory [facility] [place], [place] [address]Toll Free: [phone] A No. [id number] IAT (test code = Negative Performed a t [facility] 1185) Laboratory [facility] Blood [address]Toll Free: [phone] A No. [id number] [facility] and Screen - ONCE [id number] 21:06:03 Test Item Value Reference Range Interpretation Comments ABO & RH (test code A Positive Performe d at [facility] = 20) Laboratory [facility] Blood [place] [address]Toll Free: [phone] A No. [id number] IAT (test code = Negative Performed a t [facility] 1185) Laboratory [facility] [place], [place] [address]Toll Free: [phone] A No. [id number] [facility] and Screen - ONCE [id number] 21:06:03 Test Item Value Reference Range Interpretation Comments ABO & RH (test code A Positive Performe d at [facility] = 20) Laboratory [facility] [place], [place] [address]Toll Free: [phone] A No. [id number] IAT (test code = Negative Performed a t [facility] 1185) Laboratory [facility] [place] [address]qev Free: [phone] A No. [id number] [facility] and Screen - ONCE [id number] 21:06:03 Test Item Value Reference Range Interpretation Comments ABO & RH (test code A Positive Performe d at [facility] = 20) Laboratory [facility] [place] [address]Qgun Free: [phone] A No. [id number] IAT (test code = Negative Performed a t [facility] 1185) Laboratory [facility] Blood [place] [address]Toll Free: [phone] A No. [id number] [facility] [id number] 21:06:03 Test Item Value Reference Range Interpretation Comments ABO & RH (test code A Positive Performe d at [facility] = 20) Laboratory [facility] Blood [place] [address]Toll Free: [phone] A No. [id number] IAT (test code = Negative Performed a t [facility] 1185) Laboratory [facility] Blood [place] [address]Toll Free: [phone] A No. [id number] [facility] Confirmation (Lab Only)2022-04-04 20:58:06 Test Item Value Reference Range Interpretation Comments ABO & RH (test code A Positive Performe d at [facility] = 20) Laboratory [facility] Blood [place] [address]Toll Free: [phone] A No. [id number] [facility] Confirmation (Lab Only)2022-04-04 20:58:06 Test Item Value Reference Range Interpretation Comments ABO & RH (test code A Positive Performe d at [facility] = 20) Laboratory [facility] [place] [address]goi Free: [phone] A No. [id number] [facility] Confirmation (Lab Only)2022-04-04 20:58:06 Test Item Value Reference Range Interpretation Comments ABO & RH (test code A Positive Performe d at [facility] = 20) Laboratory [facility] Blood [place] [address]Toll Free: [phone] A No. [id number] [facility] Confirmation (Lab Only)2022-04-04 20:58:06 Test Item Value Reference Range Interpretation Comments ABO & RH (test code A Positive Performe d at [facility] = 20) Laboratory [facility] Blood [place] [address]Toll Free: [phone] A No. [id number] [facility] Confirmation (Lab Only)2022-04-04 20:58:06 Test Item Value Reference Range Interpretation Comments ABO & RH (test code A Positive Performe d at [facility] = 20) Laboratory [facility] Blood [place] [address]Toll Free: [phone] A No. [id number] [facility] Confirmation (Lab Only)2022-04-04 20:58:06 Test Item Value Reference Range Interpretation Comments ABO & RH (test code A Positive Performe d at [facility] = 20) Laboratory [facility] Blood [place] [address]Toll Free: [phone] A No. [id number] [facility] Confirmation (Lab Only)2022-04-04 20:58:06 Test Item Value Reference Range Interpretation Comments ABO & RH (test code A Positive Performe d at [facility] = 20) Laboratory [facility] Blood [place] [address]Toll Free: [phone] A No. [id number] [facility] Confirmation (Lab Only)2022-04-04 20:58:06 Test Item Value Reference Range Interpretation Comments ABO & RH (test code A Positive Performe d at [facility] = 20) Laboratory [facility] Blood [address]Toll Free: [phone] A No. [id number] [facility] Confirmation (Lab Only)2022-04-04 20:58:06 Test Item Value Reference Range Interpretation Comments ABO & RH (test code A Positive Performe d at [facility] = 20) Laboratory [facility] [place], [place] [address]Toll Free: [phone] A No. [id number] [facility] Confirmation (Lab Only)2022-04-04 20:58:06 Test Item Value Reference Range Interpretation Comments ABO & RH (test code A Positive Performe d at [facility] = 20) Laboratory [facility] Blood [place] [address]Toll Free: [phone] A No. [id number] [facility] Confirmation (Lab Only)2022-04-04 20:58:06 Test Item Value Reference Range Interpretation Comments ABO & RH (test code A Positive Performe d at [facility] = 20) Laboratory [facility] Blood [place] [address]Toll Free: [phone] A No. [id number] [facility] Confirmation (Lab Only)2022-04-04 20:58:06 Test Item Value Reference Range Interpretation Comments ABO & RH (test code A Positive Performe d at [facility] = 20) Laboratory [facility] Blood [place] [address]Toll Free: [phone] A No. [id number] [facility] Confirmation (Lab Only)2022-04-04 20:58:06 Test Item Value Reference Range Interpretation Comments ABO & RH (test code A Positive Performe d at [facility] = 20) Laboratory [facility] [place], [place] [address]Toll Free: [phone] A No. [id number] [facility] Confirmation (Lab Only)2022-04-04 20:58:06 Test Item Value Reference Range Interpretation Comments ABO & RH (test code A Positive Performe d at [facility] = 20) Laboratory [facility] [place], [place] [address]Toll Free: [phone] A No. [id number] [facility] Confirmation (Lab Only)2022-04-04 20:58:06 Test Item Value Reference Range Interpretation Comments ABO & RH (test code A Positive Performe d at [facility] = 20) Laboratory [facility] Blood [place] [address]Toll Free: [phone] A No. [id number] [facility] Confirmation (Lab Only)2022-04-04 20:58:06 Test Item Value Reference Range Interpretation Comments ABO & RH (test code A Positive Performe d at [facility] = 20) Laboratory [facility] Blood [place] [address]Toll Free: [phone] A No. [id number] [facility] Confirmation (Lab Only)2022-04-04 20:58:06 Test Item Value Reference Range Interpretation Comments ABO & RH (test code A Positive Performe d at [facility] = 20) Laboratory [facility] Blood [place] [address]Toll Free: [phone] A No. [id number] [facility] Confirmation (Lab Only)2022-04-04 20:58:06 Test Item Value Reference Range Interpretation Comments ABO & RH (test code A Positive Performe d at [facility] = 20) Laboratory [facility] Blood [place] [address]Toll Free: [phone] A No. [id number] [facility] Confirmation (Lab Only)2022-04-04 20:58:06 Test Item Value Reference Range Interpretation Comments ABO & RH (test code A Positive Performe d at [facility] = 20) Laboratory [facility] Blood [address]Toll Free: [phone] A No. [id number] [facility] Confirmation (Lab Only)2022-04-04 20:58:06 Test Item Value Reference Range Interpretation Comments ABO & RH (test code A Positive Performe d at [facility] = 20) Laboratory [facility] Blood [place] [address]Toll Free: [phone] A No. [id number] [facility] Confirmation (Lab Only)2022-04-04 20:58:06 Test Item Value Reference Range Interpretation Comments ABO & RH (test code A Positive Performe d at [facility] = 20) Laboratory [facility] Blood [place] [address]Toll Free: [phone] A No. [id number] [facility] Confirmation (Lab Only)2022-04-04 20:58:06 Test Item Value Reference Range Interpretation Comments ABO & RH (test code A Positive Performe d at [facility] = 20) Laboratory [facility] Blood [address] Free: [phone] A No. [id number] [facility] Confirmation (Lab Only)2022-04-04 20:58:06 Test Item Value Reference Range Interpretation Comments ABO & RH (test code A Positive Performe d at [facility] = 20) Laboratory [facility] Blood [place] [address]Toll Free: [phone] A No. [id number] [facility] Confirmation (Lab Only)2022-04-04 20:58:06 Test Item Value Reference Range Interpretation Comments ABO & RH (test code A Positive Performe d at [facility] = 20) Laboratory [facility] Blood [place] [address]Toll Free: [phone] A No. [id number] [facility] [id number] 19:40:46 Test Item Value Reference Range Interpretation Comments PREG SERUM (test code Negative = 8591136398) MEDHAT (test code = MEDHAT) Less than 10 IU/L. ?If low titer or ectopic is suspected, resubmit specimen in 48-72 hours. [facility], [id number] 19:40:46 Test Item Value Reference Range Interpretation Comments PREG SERUM (test code Negative = 7380414569) MEDHAT (test code = MEDHAT) Less than 10 IU/L. ?If low titer or ectopic is suspected, resubmit specimen in 48-72 hours. [facility], [id number] 19:40:46 Test Item Value Reference Range Interpretation Comments PREG SERUM (test code Negative = 6093621884) MEDHAT (test code = MEDHAT) Less than 10 IU/L. ?If low titer or ectopic is suspected, resubmit specimen in 48-72 hours. [facility] [id number] 19:40:46 Test Item Value Reference Range Interpretation Comments PREG SERUM (test code Negative = 7537075279) MEDHAT (test code = MEDHAT) Less than 10 IU/L. ?If low titer or ectopic is suspected, resubmit specimen in 48-72 hours. [facility], [id number] 19:40:46 Test Item Value Reference Range Interpretation Comments PREG SERUM (test code Negative = 5245730913) MEDHAT (test code = MEDHAT) Less than 10 IU/L. ?If low titer or ectopic is suspected, resubmit specimen in 48-72 hours. [facility], [id number] 19:40:46 Test Item Value Reference Range Interpretation Comments PREG SERUM (test code Negative = 5830955014) MEDHAT (test code = MEDHAT) Less than 10 IU/L. ?If low titer or ectopic is suspected, resubmit specimen in 48-72 hours. [facility], [id number] 19:40:46 Test Item Value Reference Range Interpretation Comments PREG SERUM (test code Negative = 4195694714) MEDHAT (test code = MEDHAT) Less than 10 IU/L. ?If low titer or ectopic is suspected, resubmit specimen in 48-72 hours. [facility], [id number] 19:40:46 Test Item Value Reference Range Interpretation Comments PREG SERUM (test code Negative = 9492403518) MEDHAT (test code = MEDHAT) Less than 10 IU/L. ?If low titer or ectopic is suspected, resubmit specimen in 48-72 hours. [facility], [id number] 19:40:46 Test Item Value Reference Range Interpretation Comments PREG SERUM (test code Negative = 4681238970) MEDHAT (test code = MEDHAT) Less than 10 IU/L. ?If low titer or ectopic is suspected, resubmit specimen in 48-72 hours. [facility], [id number] 19:40:46 Test Item Value Reference Range Interpretation Comments PREG SERUM (test code Negative = 6234862977) MEDHAT (test code = MEDHAT) Less than 10 IU/L. ?If low titer or ectopic is suspected, resubmit specimen in 48-72 hours. [facility], [id number] 19:40:46 Test Item Value Reference Range Interpretation Comments PREG SERUM (test code Negative = 8453410980) MEDHAT (test code = MEDHAT) Less than 10 IU/L. ?If low titer or ectopic is suspected, resubmit specimen in 48-72 hours. [facility], [id number] 19:40:46 Test Item Value Reference Range Interpretation Comments PREG SERUM (test code Negative = 4868318664) MEDHAT (test code = MEDHAT) Less than 10 IU/L. ?If low titer or ectopic is suspected, resubmit specimen in 48-72 hours. [facility], [id number] 19:40:46 Test Item Value Reference Range Interpretation Comments PREG SERUM (test code Negative = 1717682795) MEDHAT (test code = MEDHAT) Less than 10 IU/L. ?If low titer or ectopic is suspected, resubmit specimen in 48-72 hours. [facility], [id number] 19:40:46 Test Item Value Reference Range Interpretation Comments PREG SERUM (test code Negative = 6726118348) MEDHAT (test code = MEDHAT) Less than 10 IU/L. ?If low titer or ectopic is suspected, resubmit specimen in 48-72 hours. [facility], [id number] 19:40:46 Test Item Value Reference Range Interpretation Comments PREG SERUM (test code Negative = 4156894446) MEDHAT (test code = MEDHAT) Less than 10 IU/L. ?If low titer or ectopic is suspected, resubmit specimen in 48-72 hours. [facility], [id number] 19:40:46 Test Item Value Reference Range Interpretation Comments PREG SERUM (test code Negative = 5629528852) MEDHAT (test code = MEDHAT) Less than 10 IU/L. ?If low titer or ectopic is suspected, resubmit specimen in 48-72 hours. [facility], [id number] 19:40:46 Test Item Value Reference Range Interpretation Comments PREG SERUM (test code Negative = 7992075624) MEDHAT (test code = MEDHAT) Less than 10 IU/L. ?If low titer or ectopic is suspected, resubmit specimen in 48-72 hours. [facility], [id number] 19:40:46 Test Item Value Reference Range Interpretation Comments PREG SERUM (test code Negative = 7794583362) MEDHAT (test code = MEDHAT) Less than 10 IU/L. ?If low titer or ectopic is suspected, resubmit specimen in 48-72 hours. [facility], [id number] 19:40:46 Test Item Value Reference Range Interpretation Comments PREG SERUM (test code Negative = 5970267360) MEDHAT (test code = MEDHAT) Less than 10 IU/L. ?If low titer or ectopic is suspected, resubmit specimen in 48-72 hours. [facility], [id number] 19:40:46 Test Item Value Reference Range Interpretation Comments PREG SERUM (test code Negative = 9320864824) MEDHAT (test code = MEDHAT) Less than 10 IU/L. ?If low titer or ectopic is suspected, resubmit specimen in 48-72 hours. [facility], [id number] 19:40:46 Test Item Value Reference Range Interpretation Comments PREG SERUM (test code Negative = 3106156318) MEDHAT (test code = MEDHAT) Less than 10 IU/L. ?If low titer or ectopic is suspected, resubmit specimen in 48-72 hours. [facility], [id number] 19:40:46 Test Item Value Reference Range Interpretation Comments PREG SERUM (test code Negative = 2828961997) MEDHAT (test code = MEDHAT) Less than 10 IU/L. ?If low titer or ectopic is suspected, resubmit specimen in 48-72 hours. [facility], [id number] 19:40:46 Test Item Value Reference Range Interpretation Comments PREG SERUM (test code Negative = 5884661589) MEDHAT (test code = MEDHAT) Less than 10 IU/L. ?If low titer or ectopic is suspected, resubmit specimen in 48-72 hours. [facility], [id number] 19:40:46 Test Item Value Reference Range Interpretation Comments PREG SERUM (test code Negative = 7344786510) MEDHAT (test code = MEDHAT) Less than 10 IU/L. ?If low titer or ectopic is suspected, resubmit specimen in 48-72 hours. [facility] CenterCB WITH [id number] 18:55:21 Test Item Value Reference Range Interpretation Comments WBC (test code = See_Comment H [Automated 6790-2) message] The system which generated this result transmit gómez reference range : 4.30 - 11.10 10*3/?L. The reference range was not used to interpret this result as normal/abnormal . RBC (test code = See_Comment [Automated 269-8) message] The system which generated this result [...] RDW-SD (test code = 43.0 fL 39-49.9 41718-7) RDW-CV (test code = 13.2 % 12-15.5 788-0) PLT (test code = See_Comment [Automated 137-3) message] The system which generated this result transmit gómez reference range : 166 - 358 10*3/ ?L. The reference range was not u sed to interpret th is result as normal/abnormal . MPV (test code = 10.8 fL 9.5-12.9 28640-4) NRBC/100 WBC (test See_Comment [Automat ed code = 0424224794) message] The system which generated this result transmit gómez reference range : 0.0 - 10.0 /100 WBCs. The reference range was not used to interpret this result as normal/abnormal . NRBC x10^3 (test code See_Comment [Auto mated = 1661934364) message] The system which generated this result transmit gómez reference range : 10*3/?L. The reference range was not used to interpret this result as normal/abnormal . GRAN MAT (NEUT) % 82.1 % (test code = 770-8) IMM GRAN % (test code 0.60 % = 2094428570) LYMPH % (test code = 12.4 % 736-9) MONO % (test code = 4.3 % 5905-5) EOS % (test code = 0.1 % 713-8) BASO % (test code = 0.5 % 706-2) GRAN MAT x10^3(ANC) 10.62 10*3/uL 1.88-7.09 H (test code = 6467908889) IMM GRAN x10^3 (test 0.08 10*3/uL 0-0.06 H code = 2574962376) LYMPH x10^3 (test code 1.60 10*3/uL 1.32-3.29 = 731-0) MONO x10^3 (test code 0.56 10*3/uL 0.33-0.92 = 742-7) EOS x10^3 (test code = 0.03-0.39 L 711-2) BASO x10^3 (test code 0.06 10*3/uL 0.01-0.07 = 704-7) Lab Interpretation Abnormal (test code = 97129-3) [facility]. METABOLIC PANEL (63124)2022-04-04 18:55:21 Test Item Value Reference Range Interpretation Comments NA (test code = 141 mmol/L 135-145 6955990654) K (test code = 4.5 mmol/L 3.5-5 2675494117) CL (test code = 103 mmol/L 98-108 6178315370) CO2 TOTAL (test code = 27 mmol/L 23-31 8348106468) AGAP (test code = 2-16 3829983285) BUN (test code = 14 mg/dL 7-23 9840136149) GLUCOSE (test code = 115 mg/dL 70-110 H 2597328133) CREATININE (test code = 0.62 mg/dL 0.5-1.04 9569236830) TOTAL BILI (test code = 0.7 mg/dL 0.1-1.3 9463741768) CALCIUM (test code = 9.5 mg/dL 8.6-10.6 5193269991) T PROTEIN (test code = 7.3 g/dL 6.3-8.2 6931295445) ALBUMIN (test code = 4.7 g/dL 3.5-5 2000555714) ALK PHOS (test code = 65 U/L 34-122 4400224480) ALTv (test code = 22 U/L 5-35 1742-6) AST(SGOT) (test code = 39 U/L 13-40 3540511698) eGFR (test code = mL/min/1.73m2 1540538006) MEDHAT (test code = MEDHAT) Association of [...] tests). Lab Interpretation Abnormal (test code = 67667-5) [facility] 18:55:21 Test Item Value Reference Range Interpretation Comments LIPASE (test code = 5467417582) 70 U/L 0-220 Lab Interpretation (test code = Normal 47126-2) [facility] 18:55:21 Test Item Value Reference Range Interpretation Comments LIPASE (test code = 2536021724) 70 U/L 0-220 Lab Interpretation (test code = Normal 09771-4) [facility]OL[facility] (04360)2022-04-04 18:55:21 Test Item Value Reference Range Interpretation Comments NA (test code = 141 mmol/L 135-145 5971971189) K (test code = 4.5 mmol/L 3.5-5 8681289221) CL (test code = 103 mmol/L 98-108 7137337037) CO2 TOTAL (test code = 27 mmol/L 23-31 9920308997) AGAP (test code = 2-16 8666117661) BUN (test code = 14 mg/dL 7-23 2187316363) GLUCOSE (test code = 115 mg/dL 70-110 H 3590963798) CREATININE (test code = 0.62 mg/dL 0.5-1.04 6732500263) TOTAL BILI (test code = 0.7 mg/dL 0.1-1.3 3759639940) CALCIUM (test code = 9.5 mg/dL 8.6-10.6 1670512453) T PROTEIN (test code = 7.3 g/dL 6.3-8.2 6473229046) ALBUMIN (test code = 4.7 g/dL 3.5-5 6532830969) ALK PHOS (test code = 65 U/L 34-122 0954265691) ALTv (test code = 22 U/L 5-35 2-6) AST(SGOT) (test code = 39 U/L 13-40 3641486033) eGFR (test code = mL/min/1.73m2 1239631044) MEDHAT (test code = MEDHAT) Association of [...] tests). Lab Interpretation Abnormal (test code = 06749-3) [facility] 18:55:21 Test Item Value Reference Range Interpretation Comments LIPASE (test code = 5288295917) 70 U/L 0-220 Lab Interpretation (test code = Normal 05261-1) [facility] 18:55:21 Test Item Value Reference Range Interpretation Comments LIPASE (test code = 5738465607) 70 U/L 0-220 Lab Interpretation (test code = Normal 68706-2) [address]10-03 18:55:21 Test Item Value Reference Range Interpretation Comments LIPASE (test code = 0291234234) 70 U/L 0-220 Lab Interpretation (test code = Normal 97641-9) [address]10-03 18:55:21 Test Item Value Reference Range Interpretation Comments LIPASE (test code = 3752336648) 70 U/L 0-220 Lab Interpretation (test code = Normal 92759-9) [address]10-03 18:55:21 Test Item Value Reference Range Interpretation Comments LIPASE (test code = 2654681004) 70 U/L 0-220 Lab Interpretation (test code = Normal 39403-7) [address]10-03 18:55:21 Test Item Value Reference Range Interpretation Comments LIPASE (test code = 9077384194) 70 U/L 0-220 Lab Interpretation (test code = Normal 23963-6) [address]10-03 18:55:21 Test Item Value Reference Range Interpretation Comments LIPASE (test code = 3659214190) 70 U/L 0-220 Lab Interpretation (test code = Normal 99146-6) [address]10-03 18:55:21 Test Item Value Reference Range Interpretation Comments LIPASE (test code = 7287971278) 70 U/L 0-220 Lab Interpretation (test code = Normal 06933-5) [address]10-03 18:55:21 Test Item Value Reference Range Interpretation Comments LIPASE (test code = 2900522962) 70 U/L 0-220 Lab Interpretation (test code = Normal 05968-7) [facility] 18:55:21 Test Item Value Reference Range Interpretation Comments LIPASE (test code = 4220077064) 70 U/L 0-220 Lab Interpretation (test code = Normal 69937-9) [address]10-03 18:55:21 Test Item Value Reference Range Interpretation Comments LIPASE (test code = 8914774259) 70 U/L 0-220 Lab Interpretation (test code = Normal 72845-2) [address]10-03 18:55:21 Test Item Value Reference Range Interpretation Comments LIPASE (test code = 2718161649) 70 U/L 0-220 Lab Interpretation (test code = Normal 70346-3) [address]10-03 18:55:21 Test Item Value Reference Range Interpretation Comments LIPASE (test code = 0495912567) 70 U/L 0-220 Lab Interpretation (test code = Normal 44311-9) [address]10-03 18:55:21 Test Item Value Reference Range Interpretation Comments LIPASE (test code = 4010598974) 70 U/L 0-220 Lab Interpretation (test code = Normal 62414-7) [address]10-03 18:55:21 Test Item Value Reference Range Interpretation Comments LIPASE (test code = 1814373040) 70 U/L 0-220 Lab Interpretation (test code = Normal 89325-3) [address]10-03 18:55:21 Test Item Value Reference Range Interpretation Comments LIPASE (test code = 2483251953) 70 U/L 0-220 Lab Interpretation (test code = Normal 19773-9) [address]10-03 18:55:21 Test Item Value Reference Range Interpretation Comments LIPASE (test code = 9922264484) 70 U/L 0-220 Lab Interpretation (test code = Normal 62370-9) [address]10-03 18:55:21 Test Item Value Reference Range Interpretation Comments LIPASE (test code = 8520758547) 70 U/L 0-220 Lab Interpretation (test code = Normal 03132-1) [address]10-03 18:55:21 Test Item Value Reference Range Interpretation Comments LIPASE (test code = 4224233265) 70 U/L 0-220 Lab Interpretation (test code = Normal 31497-5) [address]10-03 18:55:21 Test Item Value Reference Range Interpretation Comments LIPASE (test code = 9269210671) 70 U/L 0-220 Lab Interpretation (test code = Normal 30399-6) [address]03 18:55:21 Test Item Value Reference Range Interpretation Comments LIPASE (test code = 8960166297) 70 U/L 0-220 Lab Interpretation (test code = Normal 06460-9) [facility] 18[facility]55:21 Test Item Value Reference Range Interpretation Comments LIPASE (test code = 5324682833) 70 U/L 0-220 Lab Interpretation (test code = Normal 83196-7) [facility] (37994)2022-04-01 04:58:46 Test Item Value Reference Range Interpretation Comments NA (test code = 139 mmol/L 135-145 0238896433) K (test code = 5.0 mmol/L 3.5-5 8511835308) CL (test code = 102 mmol/L 98-108 3691806728) CO2 TOTAL (test code 27 mmol/L 23-31 = 3598658349) AGAP (test code = 2-16 8108569394) BUN (test code = 13 mg/dL 7-23 5810300632) GLUCOSE (test code = 104 mg/dL 70-110 3682191737) CREATININE (test code 0.69 mg/dL 0.5-1.04 = 9889452204) TOTAL BILI (test code 0.5 mg/dL 0.1-1.1 = 7430093055) CALCIUM (test code = 9.6 mg/dL 8.6-10.6 0444666335) T PROTEIN (test code 7.2 g/dL 6.3-8.2 = 6406103662) ALBUMIN (test code = 4.6 g/dL 3.5-5 5331610607) ALK PHOS (test code = 60 U/L 34-122 9580345537) ALTv (test code = 15 U/L 5-35 1742-6) AST(SGOT) (test code 26 U/L 13-40 = 2419179134) eGFR (test code = mL/min/1.73m2 3035186098) MEDHAT (test code = MEDHAT) Association of [...] abnormalities in imaging tests). [facility] 04:58:25 Test Item Value Reference Range Interpretation Comments LIPASE (test code = 5815290627) 71 U/L 0-220 Lab Interpretation (test code = Normal 36399-9) [facility] WITH [id number] 04:46:42 Test Item Value Reference Range Interpretation Comments WBC (test code = See_Comment [Automated message] 6690-2) The system [employer] generated this result transmitted ref erence range: 4.30 - 1 1.10 10*3/?L. The re ference range was not u sed to interpret this result as normal/abnor mal. RBC (test code = See_Comment [Automated message] 789-8) The system [employer] generated this result transmitted ref erence range: [...] RDW-SD (test code 42.5 fL 39-49.9 = 00675-9) RDW-CV (test code 13.2 % 12-15.5 = 788-0) PLT (test code = See_Comment [Automated message] 777-3) The system [employer] generated this result transmitted ref erence range: 166 - 35 8 10*3/?L. The re ference range was not u sed to interpret this result as normal/abnor mal. MPV (test code = 10.4 fL 9.5-12.9 19808-8) NRBC/100 WBC (test See_Comment [Automat ed message] code = 4004860417) The syste m which generated this result transmitted ref erence range: 0.0 - 10 .0 /100 WBCs. The refer ence range was not u sed to interpret this result as normal/abnor mal. NRBC x10^3 (test See_Comment [Automated message] code = 8781829613) The syste m which generated this result transmitted ref erence range: 10*3/?L. The reference range was not used to interpr et this result as normal/abnormal . GRAN MAT (NEUT) % 69.5 % (test code = 770-8) IMM GRAN % (test 0.40 % code = 9559199604) LYMPH % (test code 23.3 % = 736-9) MONO % (test code 5.3 % = 5905-5) EOS % (test code = 0.7 % 713-8) BASO % (test code 0.8 % = 706-2) GRAN MAT 5.73 10*3/uL 1.88-7.09 x10^3(ANC) (test code = 3915093603) IMM GRAN x10^3 0.03 10*3/uL 0-0.06 (test code = 7531863589) LYMPH x10^3 (test 1.92 10*3/uL 1.32-3.29 code = 731-0) MONO x10^3 (test 0.44 10*3/uL 0.33-0.92 code = 742-7) EOS x10^3 (test 0.06 10*3/uL 0.03-0.39 code = 711-2) BASO x10^3 (test 0.07 10*3/uL 0.01-0.07 code = 704-7) [facility] [id number] 04:37:00 Test Item Value Reference Range Interpretation Comments POCT PREG (test code = 1605) negative Lab Interpretation (test code = Normal 06845-4) [facility] [id number] 04:37:00 Test Item Value Reference Range Interpretation Comments POCT PREG (test code = 1605) negative Lab Interpretation (test code = Normal 45795-6) [facility], [id number] 14:05:00 Test Item Value Reference Range Interpretation Comments Coronavirus NAAT, COVD19 SARS results, (test code = including Patient [id number]) Name, or MRN, were Coronavirus NAAT, COVD19 ical-devices/emergenc (test code = l-dev-jnwlghmncvdhtc. JJYQCSW1VRWB3.1) SARS-CoV-2 NAAT Result: Positive by RT-PCR A (test code = SARS-CoV-2 NAAT Result:) COVID-19 Status: AsymptomaticHCG, Urine Qual (LAB)2021-07-09 14:05:00 Test Item Value Reference Range Interpretation Comments HCG, Urine, Qual (test code = HCGU) Negative Negative Drug Screen,[id number] 14:05:00 Test Item Value Reference Range Interpretation [...] Negative code = UPROP) UA, Urinalysis w Iysdpzrv9216-19-02 14:05:00 Test Item Value Reference Range Interpretation Comments Color,Urine (test code = Yellow Yellow UCOL) Clarity,Urine (test code = Clear Clear UCLAR) Ph, Urine (test code = UPH) 8.5 5.0-8.0 H Specific [place],Urine 1.020 1.005-1.030 N (test code = USG) [...] Seen A UBACT) Complete Blood Count Auto [id number] 13:20:00 Test Item Value Reference Range Interpretation [...] code = NRBCP) 0 % Comprehensive Metabolic [id number] 13:20:00 Test Item Value Reference Range Interpretation [...] 72 U/L 46-116 N = ALP) Ethanol [id number] 13:20:00 Test Item Value Reference Range Interpretation [...] = HCGU) Negative Negative UA, Urinalysis Rflx Cult/[id number] 00:20:00 Test Item Value Reference Range Interpretation Comments Color,Urine (test code = Yellow Yellow UCOL) Clarity,Urine (test code = Clear Clear UCLAR) PH,Urine (test code = 7.5 5.5-8.5 UPH.XX) Specific [place],Urine 1.020 1.005-1.030 N (test code = USG) [...] cells/uL Negative (test code = ULEU) Urine [id number] 00:20:00 Test Item Value Reference Range Interpretation Comments RBC,Urine (test code = URBC.XX) 0-5 /HPF None Seen WBC,Urine (test code = UWBC.XX) 6-10 /HPF None Seen A Squamous Epithelial Cell,Urine 74-200 /HPF None Seen A (test code = USQEPI.XX) Bacteria,Urine (test code = Moderate /HPF None Seen A UBACT) Drug Screen,[id number] 00:20:00 Test Item Value Reference Range Interpretation [...] code = UPROP) Complete Blood Count Auto [id number] 00:09:00 Test Item Value Reference Range Interpretation [...] code = NRBCP) 0 % Comprehensive Metabolic [id number] 00:09:00 Test Item Value Reference Range Interpretation [...] 83 U/L 46-116 N = ALP) Ethanol [id number] 00:09:00 Test Item Value Reference Range Interpretation Comments Ethanol (test code < 3 mg/dL The pharm acological = ETOH) response to blo od alcohol levels mayvary from individual to i ndividual. The fatal ezio ntrationhas been reported t o be >400mg/dL. Coronavirus PCR, COVID19 [id number] 00:08:00 Test Item Value Reference Range Interpretation Comments Coronavirus PCR, For use under Emergency COVID19 Rapid (test Use Authorization (EUA) code = SARSCOV2) only. Coronavirus PCR, Reference Range: COVID19 Rapid (test Negative code = USIZMWY56.1) SARS-CoV-2 PCR Result: Negative by RT-PCR (test code = SARS-CoV-2 PCR Result:) COVID-19 Status: AsymptomaticCARBAMAZEPHINE (TEGRETOL)2020-09-26 08:42:00 Test Item Value Reference Range Interpretation Comments CARBAMAZPN (test code = 98A) 19.3 ug/mL 4.0-12.0 HH CARBAMAZEPHINE (TEGRETOL)2020-09-26 05:04:00 Test Item Value Reference Range Interpretation Comments CARBAMAZPN (test code = 98A) 20.1 ug/mL 4.0-12.0 HH URINALYSIS WITH [id number] 02:45:00 Test Item Value Reference Range Interpretation [...] code = USPERM) /HPF NONE DRUGS OF [id number] 02:43:00 Test Item Value Reference Range Interpretation [...] the FDA and the [employer] [place] [employer] (CAP) are more stringent than those required for this test. Therefore, the result should be interpreted with caution and close attention to other clinical and epidemiological data PRO TIME AND [id number] 00:51:00 Test Item Value Reference Range Interpretation [...] Heparin. Order Code is ANTI-XA COMPREHENSIVE METABOLIC [id number] 00:47:00 Test Item Value Reference Range Interpretation [...] as normal/abnormal . GFR 154 See_Comment [Automated [place] (test mL/min/1.73m\\S\\2 message] The code = GFRAA) [...] to interpret this result as normal/abnormal . [id number] 00:47:00 Test Item Value Reference Range Interpretation Comments ACETAMINPH (test code = 94M) 3.6 ug/mL 10.0-30.0 L CARDIAC [id number] 00:47:00 Test Item Value Reference Range Interpretation Comments TROPONIN I (test code = A84) <0.015 ng/mL 0.000-0.045 ALCOHOL BLOOD (ETOH)2020-09-26 00:44:00 Test Item Value Reference Range Interpretation Comments ETOH (test code = ETHANOL HALC) The result is to be used only for medical purposes ALCOHOL (test <10 mg/dL See_Comment [Automated me ssage] code = 56A) The system [employer] generated this result transmit gómez reference range : <=10. The refer ence range was not u sed to interpret th is result as normal/abnormal . [id number] 00:42:00 Test Item Value Reference Range Interpretation Comments SALICYLATE (test code = 94B) <1.7 mg/dL 2.8-20.0 L SERUM [id number] 00:38:00 Test Item Value Reference Range Interpretation [...]
[2022-09-08] MEDS ORDERED: NA CHLORIDE 0.9% 1,000 ML ONE (02:05)
[2022-09-08] MEDS ORDERED: ONDANSETRON 4 MG/2 ML VIAL ONE (02:05)
[2022-09-08] MEDS ORDERED: FAMOTIDINE 20 MG/2 ML VIAL IV ONE (02:05)
[2022-09-08] MEDS ORDERED: DICYCLOMINE HCL 20 MG/2 ML AMP IM ONE (02:05)
[2022-09-08 02:32] LABS: Absolute Lymphocytes (CBC) 1.9 K/uL (0.7-4.9); Hematocrit 41.8 % (36.0-45.0); Lymphocytes % 20.2 % (15.3-44.8); MCV 85.1 fL (80-100); MPV 8.2 fL (7.6-11.3); RBC Red Blood Cell Count 4.91 M/uL (3.86-4.86)
[2022-09-08 02:46] LABS: Albumin 3.9 g/dL (3.4-5.0); Bilirubin Total 0.3 mg/dL (0.2-1.0); Potassium 3.5 mmol/L (3.5-5.1); Protein, Total 7.1 g/dL (6.4-8.2)
[2022-09-08 03:20] LABS: Urine Blood Negative (Negative); Urine Glucose Negative (Negative); Urine Protein Negative (Negative); Urine pH 7.5 (5.0-7.0)
[2022-09-08 05:04] VITALS: BP 94/62; TEMP 97.9; O2SAT 100
--- NOTE | 2022-09-08 15:10 | RAD REPORT ---
EXAM DESCRIPTION: CT - Abdomen Pelvis W Contrast - 09/08/2022 3:55 am CLINICAL HISTORY: The patient is 22 years old and is Female; ABD PAIN, NAUSEA, VOMITING TECHNIQUE: Axial computed tomography images of the abdomen and pelvis with intravenous contrast. S agittal and coronal reformatted images were created and reviewed. This CT exam was performed using one or more of the following dose reduction techniques: automated exposure control, adjustment of t he mA and/or kV according to patient size, and/or use of iterative reconstruction technique. COMPARISON: No relevant prior studies available. FINDINGS: LUNG BASES: Partially visualized 4 mm nodule within the right middle lobe is noted. The lungs are otherwise clear. ABDOMEN: LIVER: Unremarkable. No mass. GALLBLADDER AND BILE DUCTS: The gallbladder is distended. PANCREAS: No ductal dilation. No mass. SPLEEN: Unremarkable. ADRENALS: Unremarkable. No mass. KIDNEYS AND URETERS: Unremarkable. The kidneys enhance symmetrically. No obstructing renal or ur eteral calculus is seen. No hydronephrosis or hydroureter. No perinephric fluid or stranding. STOMACH AND BOWEL: The stomach is distended with fluid and air. The small bowel is decompressed. A moderate amount stool is present throughout colon. There is no mucosal thickening or evidence of b owel obstruction. PELVIS: APPENDIX: The appendix is normal in caliber without surrounding inflammation. BLADDER: The bladder is well distended. REPRODUCTIVE: An IUD is in place. A 1.8 cm right ovarian cyst is present. No follow-up imaging is recommended. The uterus and left ovary normal. ABDOMEN and PELVIS: INTRAPERITONEAL SPACE: Unremarkable. No free air. No significant fluid collection. BONES/JOINTS: Evidence of a healing right iliac wing fracture is noted. SOFT TISSUES: The soft tissues are normal. VASCULATURE: Unremarkable. No abdominal aortic aneurysm. LYMPH NODES: Unremarkable. No enlarged lymph nodes. IMPRESSION: 1. Partially visualized 4 mm right middle lobe pulmonary nodule. 2. No acute findings on this contrasted CT of the abdomen and pelvis to explain the patient's sympt oms. Electronically signed by: Petra Ruvalcaba MD 09/08/2022 3:39 AM MANAGER VEHICLE Due to temporary technical issues with the PACS/Fluency reporting system, reports are being signed by the in house radiologists without review as a courtesy to insure prompt reporting. The interpreting radiologist is fully responsible for the content of the report.
--- NOTE | 2022-09-23 15:20 | ER ---
Nurse's Notes [facility] Name: Vanda Pompa Age: 22 yrs Sex: Female : 2000 Arrival Date: 09/08/2022 Time: 01:25 Bed 12 Private MD: Diagnosis: Vomiting Presentation: 09/08 01:25 Chief complaint: EMS states: 22 f c/o nausea and vomiting for 6 days with a headache vc1 that comes and goes. Ebola Screen: Patient negative for fever greater than or equal to 101.5 degrees Fahrenheit, and additional compatible Ebola Virus Disease symptoms Patient denies exposure to infectious person. Patient denies travel to an Ebola-affected area in the 21 days before illness onset. No symptoms or risks identified at this time. Initial Sepsis Screen: Does the patient meet any 2 criteria? No. Patient's initial sepsis screen is negative. Does the patient have a suspected source of infection? No. Patient's initial sepsis screen is negative. Risk Assessment: Do you want to hurt yourself or someone else? Patient reports no desire to harm self or others. 01:25 Method Of Arrival: EMS: [facility] vc1 01:25 Acuity: FREDY 3 vc1 Historical: - Home Meds: 01:27 Abilify Oral [Active]; Lamictal Oral [Active]; Strattera Oral [Active]; vc1 - PMHx: 01:27 adhd; Anxiety; Asthma; Bipolar disorder; depressive disorder; vc1 - PSHx: 01:27 ear surgery; vc1 - Immunization history:: unknown. - Social history:: Smoking status: unknown. Screenin:00 [facility] ED Fall Risk Assessment (Adult) History of falling in the last 3 months, bb including since admission No falls in past 3 months (0 pts) Confusion or Disorientation No (0 pts) Intoxicated or Sedated No (0 pts) Impaired Gait No (0 pts) Score/Fall Risk Level 0 - 2 = Low Risk Oriented to surroundings, Maintained a safe environment. Abuse screen: Denies threats or abuse. Nutritional screening: No deficits noted. Tuberculosis screening: No symptoms or risk factors identified. Assessment: 02:00 General: Appears in no apparent distress. slender, Behavior is calm, cooperative. Pain: bb Complains of pain in left lower quadrant and right lower quadrant. Neuro: Level of Consciousness is awake, alert, obeys commands, Oriented to person, place, time, situation. Cardiovascular: Capillary refill < 3 seconds Patient's skin is warm and dry. Respiratory: Respiratory effort is even, unlabored, Respiratory pattern is regular. GI: Abdomen is non-distended, Reports lower abdominal pain, upper abdominal pain, vomiting. Derm: Skin is pink, warm \T\ dry. Musculoskeletal: Circulation, motion, and sensation intact. 04:41 Reassessment: Patient is alert, oriented x 3, equal unlabored respirations, skin bb warm/dry/pink. pt verbalized understanding of and agrees to plan of care discharge instructions given pt ambulated with steady gait to exit. Vital Signs: 01:25 BP 110 / 80; Pulse 90; Resp 17; Temp 98.2; Pulse Ox 99% ; vc1 04:42 BP 94 / 62; Pulse 68; Resp 16 S; Temp 97.9(O); Pulse Ox 100% on R/A; bb ED Course: 01:25 Patient arrived in ED. vc1 01:26 Triage completed. vc1 01:26 Dick Nathan PA is PHCP. cp 01:26 Jeanmarie Cee MD is Attending Physician. cp 02:00 Patient has correct armband on for positive identification. Call light in reach. Side bb rails up X 1. 02:10 Initial lab(s) drawn, by me, sent to lab. Inserted saline lock: 20 gauge in right bb antecubital area, using aseptic technique. Blood collected. 02:23 Ivet Wynne, OLGA is Primary Nurse. bb 03:29 CT Abd/Pelvis - IV Contrast Only In Process Unspecified. EDMS 04:42 No provider procedures requiring assistance completed. IV discontinued, intact, bb bleeding controlled, No redness/swelling at site. Pressure dressing applied. Administered Medications: 02:18 Drug: Dicyclomine IM 20 mg Route: IM; Site: right gluteus; bb 03:20 Follow up: Response: No adverse reaction bb 02:20 Drug: NS 0.9% IV 1000 ml Route: IV; Rate: 1 bolus; Site: right antecubital; bb 03:10 Follow up: IV Status: Completed infusion; IV Intake: 950ml bb 02:22 Drug: Famotidine IVP 20 mg Route: IVP; Site: right antecubital; bb 03:10 Follow up: Response: No adverse reaction bb 02:24 Drug: Ondansetron IVP 4 mg Route: IVP; Site: right antecubital; bb 03:10 Follow up: Response: No adverse reaction bb Medication: 02:00 VIS not applicable for this client. bb Intake: 03:10 IV: 950ml; Total: 950ml. bb Outcome: 04:19 Discharge ordered by bs3 04:43 Discharged to home ambulatory. bb 04:43 Condition: stable 04:43 Discharge instructions given to patient, Instructed on discharge instructions, follow up and referral plans. medication usage, Demonstrated understanding of instructions, follow-up care, medications, Prescriptions given X 1. 04:44 Patient left the ED. bb Signatures: Dispatcher [employer] EDIvet Cerrato RN RN Dick Burton PA PA cp Calcote, Vanessa, RN RN vc1 Jeanmarie Cee, MD ROBERTS bs3
--- NOTE | 2022-09-23 15:20 | EDPHYS ---
Physician Documentation [facility] Name: Vanda Pompa Age: 22 yrs Sex: Female : 2000 Arrival Date: 09/08/2022 Time: 01:25 Bed 12 Private MD: ED Physician Jeanmarie Cee HPI: 09/08 01:39 This 22 yrs old Female presents to ER via EMS with complaints of Nausea, Vomiting and cp Diarrhea. 01:39 The patient presents to the emergency department with nausea, that is moderate, cp vomiting, that is intermittent, diarrhea, that is intermittent, abdominal pain, of the right lower quadrant and left lower quadrant. Onset: The symptoms/episode began/occurred 6 day(s) ago. Possible causes: unknown. Associated signs and symptoms: Pertinent positives: anorexia, Pertinent negatives: constipation, fever, GI bleeding. Severity of symptoms: in the emergency department the symptoms are unchanged despite EMS interventions. Historical: - Home Meds: 01:27 Abilify Oral [Active]; Lamictal Oral [Active]; Strattera Oral [Active]; vc1 - PMHx: 01:27 adhd; Anxiety; Asthma; Bipolar disorder; depressive disorder; vc1 - PSHx: 01:27 ear surgery; vc1 - Immunization history:: unknown. - Social history:: Smoking status: unknown. ROS: 01:40 Eyes: Negative for injury, pain, redness, and discharge. cp 01:40 Constitutional: Positive for poor PO intake, Negative for body aches, chills, fever. 01:40 ENT: Negative for drainage from ear(s), ear pain, sore throat, difficulty swallowing, difficulty handling secretions. 01:40 Cardiovascular: Negative for chest pain, palpitations. 01:40 Respiratory: Negative for cough, shortness of breath, wheezing. 01:40 Abdomen/GI: Positive for abdominal pain, nausea, vomiting, and diarrhea, Negative for hematemesis. 01:40 : Negative for urinary symptoms, vaginal bleeding. 01:40 Neuro: Negative for altered mental status, headache. 01:40 All other systems are negative. Exam: 01:41 Head/Face: Normocephalic, atraumatic. cp 01:41 Constitutional: The patient appears in no acute distress, alert, awake, non-toxic, well developed, well nourished. 01:42 Eyes: Periorbital structures: appear normal, Conjunctiva: normal, no exudate, no cp injection, Sclera: no appreciated abnormality, Lids and lashes: appear normal, bilaterally. 01:42 ENT: External ear(s): are unremarkable, Nose: is normal, Mouth: Lips: moist, Oral mucosa: moist, Posterior pharynx: Airway: no evidence of obstruction, patent. 01:42 Chest/axilla: Inspection: normal. 01:42 Cardiovascular: Rate: normal, Rhythm: regular. 01:42 Respiratory: the patient does not display signs of respiratory distress, Respirations: normal, no use of accessory muscles, no retractions, labored breathing, is not present, Breath sounds: are clear throughout, no decreased breath sounds, no stridor, no wheezing. 01:42 Abdomen/GI: Inspection: distension, that is mild, Bowel sounds: active, all quadrants, Palpation: soft, in all quadrants, moderate abdominal tenderness, in the right lower quadrant and left lower quadrant, rebound tenderness, is not appreciated, involuntary guarding, is not appreciated. 01:42 Back: CVA tenderness, is absent. Vital Signs: 01:25 BP 110 / 80; Pulse 90; Resp 17; Temp 98.2; Pulse Ox 99% ; vc1 04:42 BP 94 / 62; Pulse 68; Resp 16 S; Temp 97.9(O); Pulse Ox 100% on R/A; bb MDM: 01:39 Patient medically screened. cp 02:00 Differential diagnosis: gastritis, cholecystitis, pancreatitis, appendicitis, viral cp gastroenteritis, gastroenteritis. 03:00 Transition of care: After a detail discussion of the patient's case, care is cp transferred to Jeanmarie Cee MD. 04:19 Differential diagnosis: appendicitis, cholecystitis, Cholelithiasis. Data reviewed: bs3 vital signs, nurses notes. ED course: Patient feeling much better on reassessment tolerating p.o. advised outpatient follow-up for incidental findings and chronic nausea vomiting. 09/08 01:32 Order name: CBC with Diff; Complete Time: 03:09 cp 09/08 03:10 Interpretation: Normal except: RBC 4.91; DIANE% 75.0. cp 09/08 01:32 Order name: CMP; Complete Time: 03:09 cp 09/08 03:10 Interpretation: Reviewed. cp 09/08 01:32 Order name: Lipase; Complete Time: 03:09 cp 09/08 03:20 Order name: Urine Dipstick-Ancillary EDMS 09/08 03:40 Order name: Urine --Ancillary (enter results) rv1 09/08 01:42 Order name: CT Abd/Pelvis - IV Contrast Only cp 09/08 01:32 Order name: IV Saline Lock; Complete Time: 02:23 cp 09/08 01:32 Order name: Labs collected and sent; Complete Time: 02:23 cp 09/08 01:32 Order name: Urine Dipstick-Ancillary (obtain specimen); Complete Time: 03:10 cp 09/08 01:32 Order name: Urine Test (obtain specimen); Complete Time: 03:10 cp Administered Medications: 02:18 Drug: Dicyclomine IM 20 mg Route: IM; Site: right gluteus; bb 03:20 Follow up: Response: No adverse reaction bb 02:20 Drug: NS 0.9% IV 1000 ml Route: IV; Rate: 1 bolus; Site: right antecubital; bb 03:10 Follow up: IV Status: Completed infusion; IV Intake: 950ml bb 02:22 Drug: Famotidine IVP 20 mg Route: IVP; Site: right antecubital; bb 03:10 Follow up: Response: No adverse reaction bb 02:24 Drug: Ondansetron IVP 4 mg Route: IVP; Site: right antecubital; bb 03:10 Follow up: Response: No adverse reaction bb Disposition: 04:17 Co-signature as Attending Physician, Jeanmarie Cee MD I reviewed the patient's care bs3 provided by Advanced Practice Provider \T\ agree w/ the diagnosis \T\ care plan. I personally saw the pt \T\ performed a substantive portion of the visit, incldng all aspects of the (History/Exam/Medical Decision Making). Patient seen and evaluated she is feeling much better her labs were normal her CT was notable for 4mm nodule, and ovarian cyst, advised outpatient f/u with pcp and GI given chronic symptoms, strict return prec given. . Disposition Summary: 09/08/22 04:19 Discharge Ordered Location: Home bs3 Problem: an acute exacerbation bs3 Symptoms: have improved bs3 Condition: Stable bs3 Diagnosis - Vomiting bs3 Followup: bs3 - With: Private Physician - When: 5 - 6 days - Reason: Re-evaluation by your physician Discharge Instructions: - Discharge Summary Sheet bs3 Forms: - Medication Reconciliation Form bs3 - Thank You Letter bs3 - Antibiotic Education bs3 - Prescription Opioid Use bs3 Prescriptions: - ondansetron 8 mg Oral tablet,disintegrating - take 1 tablet by ORAL route every 8 hours; 12 tablet; Refills: 0, Product bs3 Selection Permitted Signatures: Dispatcher [employer] Ivet Silva RN RN bb Dick Nathan PA PA cp Calcote, Vanessa, RN RN vc1 Jeanmarie Cee MD MD bs3
== END 2022-09-08 04:44 | disposition home or self-care (01) ==
LOC: ER 01:21
DX: R11.10 Vomiting, unspecified (principal); F31.9 Bipolar disorder, unspecified
CPT/HCPCS: 96361; 85025; 36415; 81025; 81003; 83690; 80053; 74177; 96375; 96372; 96374; 99284; Q9967; J0500; J2405; J7030

== ENCOUNTER 2023-04-25 10:53 | Emergency (ER) | payer OTHER ==
--- OUTSIDE RECORDS SUMMARY | 2023-04-25 11:31 | XMS REPORT | Continuity of Care Document ---
:2000 Author Organization [facility] t Address [address] [facility] [address] [place] [address] Support Name Relationship Address Phone NONE, NO ONE UN [phone] [place] [address] NONE, NO ONE UN [address] [place] [address] Dona Sanford Aunt [address] [place] [address] ELVIN POMPA Mother Unavailable Unavailable NONE, NONE SA [address] [phone] [place] [address] Elvin Pompa Grandmother [address] [place] [address] UN Unavailable Unavailable Unavailable Unavailable Unavailable Unavailable Unavailable ELVIN POMPA Grandparent [address] + [place] [address] ELVIN POMPA Grandparent [address] [facility] [place] [address] Elvin Pompa Grandparent [address] [facility] [address] [place] [address] ELVIN POMPA Grandparent [address] [facility] [id number] [place] [address] Elvin Pompa Grandparent 200 [facility] [id number] + [place] [address] Vicenta Lynn Emergency Contact [address] [place] [address] Care Team Providers Name Role Phone Pcp, Patient Does Not Have A Primary Care Physician +[phone] 00-0000 ALEJANDRA MORROW Attending Clinician Unavailable ALEJANDRA MORROW Attending Clinician Unavailable SUSAN VALVERDE Attending Clinician Unavailable Godwin Hand Attending Clinician Lab, Ang - Vikas Attending Clinician Unavailable GODWIN HANDY Attending Clinician Unavailable Susan Valverde MD Attending Clinician Pcp-Lab Attending Clinician Unavailable Doctor Unassigned, [place] Attending Clinician Unavailable LUCINDA WILLS Attending Clinician Unavailable Pcp, Patient Does Not Have A Attending Clinician [id number] Bouchra Mcintosh MD Attending Clinician BOUCHRA MCINTOSH Attending Clinician Unavailable JAMES JACOBS Attending Clinician Unavailable TEJAL FORD Attending Clinician Unavailable ELENITA SHARMA Attending Clinician Unavailable Jose Guzmán Attending Clinician Unavailable Eric Moore Attending Clinician Unavailable DEONNA MELENDREZ Attending Clinician Unavailable Deonna Ferrell S Attending Clinician HANDY DOMINGUEZ Attending Clinician Unavailable IRASEMA ROBLEDO Attending Clinician Unavailable Irasema Michel Attending Clinician Shivani Castaneda Attending Clinician Nurse, [facility] Attending Clinician Unavailable SHIVANI GUERRA Attending Clinician Unavailable Negrita Moise LVN Attending Clinician Keagan Luo MD Attending Clinician Clinic-Stv, Care Transition Attending Clinician Unavailable NOLVIA HUSAIN Attending Clinician Unavailable Nolvia Husain MD Attending Clinician Vignesh Mack MD Attending Clinician Vaccine, [facility] Attending Clinician Unavailable VIGNESH MACK Attending Clinician Unavailable Kitty KESSLER Attending Clinician Unavailable Kitty Crews Attending Clinician ASH RAMIREZ Attending Clinician Unavailable Ash Ramirez MD Attending Clinician Maggie Brooks MD Attending Clinician Akiko Voss MD Attending Clinician AKIKO VOSS Attending Clinician Unavailable Vania Rivera Attending Clinician VANIA FORD Attending Clinician Unavailable Lucinda Wills MD Attending Clinician SHIVANI VAUGHN Attending Clinician Unavailable SHIVANI VAUGHN Attending Clinician Unavailable Pat Patel MD Attending Clinician HONORIO GALARZA Attending Clinician Unavailable Pob, [facility] Main Attending Clinician Unavailable Benjamín ROBERTS, Ryan Attending Clinician RYAN PAYTON Attending Clinician Unavailable Jerry Montana Attending Clinician Nurse, Pcp Immunization Attending Clinician Unavailable Gideon Montez DO Attending Clinician GIDEON MONTEZ Attending Clinician Unavailable Bethel Isaacs MD Attending Clinician BETHEL ISAACS Attending Clinician Unavailable Health, Tg Hormone Attending Clinician Unavailable James Jacobs MD Attending Clinician Josephine HERRERABritt Attending Clinician Unavailable Burke Beckett MD Attending Clinician BURKE BECKETT Attending Clinician Unavailable Paolo Rivera MD Attending Clinician Tim Holguin MD Attending Clinician TIM HOLGUIN Attending Clinician Unavailable Immunization, [facility] Attending Clin ician Unavailable FALLS, CHELSY MCKEON Attending Clinician Unavailable Gio Martinez MD Attending Clinician GIO MARTINEZ Attending Clinician Unavailable DR ALAINA PARRY Attending Clinician Unavailable Nilton Montes MD Attending Clinician NILTON MONTES Attending Clinician Unavailable NILTON MONTES Attending Clinician Unavailable DENA RIVERA Attending Clinician Unavailable TRUNG MCCRAY Attending Clinician Unavailable Unknown, Attending Attending Clinician Unavailable Ruchi Garcia Attending Clinician UNKNOWN, ATTENDING Attending Clinician Unavailable NurseHan Faculty Attending Clinician Unavailable NILTON MONTES Admitting Clinician Unavailable IRASEMA ROBLEDO Admitting Clinician Unavailable Person Keagan ROBERTS Admitting Clinician PERSONKEAGAN Admitting Clinician Unavailable DR ALAINA PARRY Admitting Clinician Unavailable Payers Payer Name Policy Type Policy Number Effective Date Expiration Date [place] [id number] Traditional [facility] MEDICAID STAR [id number] 2021 00:00:[facility] [id number] 2016 CHOICE MEDICAID 00:00:00 Problems Condition Condition [...] partial in partial 00:00: g of this [place] remission, remission, 00 note Me dical most most might be Branch 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 Diagnosis per recent hospitali zaiton Abnormal Abnormal Disease Active 2019-07 Unive rs uterine uterine 0-20 ity of bleeding bleeding 00:00: [place] (AUB) (AUB) 00 Medical Branch SANDRA SANDRA Disease Active Univers (generaliz (generaliz 1-11 it y [place] ed [place] disorder[place] disorder[place] 00 [facility] Branch Attention Attention Disease Active 2008-07 Overview: Univers deficit deficit 2-22 [place] ity o f hyperactiv hyperactiv 00:00: g of this [place] ity ity 00 note Medical disorder disorder might be Bran ch (ADHD) (ADHD) different from the original. 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 Allergies, Adverse Reactions, Alerts Allergy Allergy Status Severity Reaction(s) Onset Inactive Treating Comm ents Source Name Type Date Date Clinician No Known DA Active U [facility] -13 [place] s 00[facility]: [facility] 00 are [place] No Known DA Active U [facility] 07-04 [place] [facility] 00:[facility] No Known DA Active U [facility] 07-09 Allergie 00:00: s 00 No Known DA Active U 2020-07 [facility] 07-25 Allergie 00:00: s 00 Unable DA Active U 2020-07 [facility] 07-25 Assess 00:00: 00 No Known DA Active [facility] s NO KNOWN Drug Active Univers ALLERGIE Class ity of S [facility] Family History Family Member Diagnosis Comments Start Date Stop Date Source Natural brother Psychiatry [facility] Natural father Alcohol abuse Univers ity [facility] Natural father Substance [facility] Natural mother Psychiatry University [facility] Social History Social Habit Start Date Stop Date Quantity Comments Source Gender identity Univers y [facility] University o f Alcohol Comment [place] Med ical Branch Alcohol intake 2023-04-20 2023-04-20 Lifetime University of 00:00:00 00:00:00 non-drinker [facility] (finding) Branch History of Social 2023-04-18 2023-04-18 Univers ity of function 00:00:00 00:00:00 [facility] Exposure to 2022-11-15 2022-11-25 Not sure University of SARS-CoV-2 (event) 00:00:00 08:41:00 [facility] Tobacco use and 2022-01-17 2022-01-17 Smokeless Universit y of exposure 00:00:00 00:00:00 tobacco non-user [place] Me dical Branch History SDOH 2020-04-20 2020-04-20 1 University o f Alcohol Frequency 00:00:00 00:00:00 [place] M edical Branch History SDOH 2020-04-20 2020-04-20 99 University o f Alcohol Std Drinks 00:00:00 00:00:00 [place] Medical Branch History SDOH 2020-04-20 2020-04-20 1 University o f Alcohol Binge 00:00:00 00:00:00 [facility] [place] [facility] al Branch Sex Assigned At [birth year] Universit y of 00:00:00 00:00:00 [facility] Smoking Status Start Date Stop Date Source Never smoked tobacco [facility] Medications Ordered Filled Start Stop Current Ordering Indication Dosage Frequency Signature Comments Components Source Medication Medication Date Date Medication? Clinician (SIG) Name Name ARIPiprazol 2022-07 Yes [id number] 15mg Take 1 Un kayleen e 15 mg 0-17 tablet by ity of tablet 00:00: mouth in [place] 00 the Medical morning. Branch atomoxetine 2022-07 Yes [id number] 80mg Take 1 Univers 80 mg 0-17 capsule by ity of capsule 00:00: mouth in [place] 00 the Medical morning. Branch naltrexone 2022-07 Yes [id number] 50mg Take 1 U nivers 50 mg 0-17 tablet by ity of tablet 00:00: mouth in [place] 00 the Medical morning. Branch ARIPiprazol 2022-07 Yes [id number] 15mg Take 1 Un kayleen e 15 mg 0-17 tablet by ity of tablet 00:00: mouth in [place] the Medical morning. Branch atomoxetine 2022-07 Yes [id number] 80mg Take 1 Univers 80 mg 0-17 capsule by ity of capsule 00:00: mouth in [place] the Medical morning. Branch naltrexone 2022-07 Yes [id number] 50mg Take 1 U nivers 50 mg 0-17 tablet by ity of tablet 00:00: mouth in [place] 00 the Medical morning. Branch Lamotrigine 2022-07- Yes [id number] 50mg Take 1 Univers 50 mg 0-17 01-16 tablet by ity of tablet 00:00: 05:59 mouth in [place] 00 :00 the Medical morning Branch for 90 days. Lamotrigine 2022-07- Yes [id number] 50mg Take 1 Univers 50 mg 0-17 01-16 tablet by ity of tablet 00:00: 05:59 mouth in [place] 00 :00 the Medical morning Branch for 90 days. hydrOXYzine Yes [id number] 25mg Take 1 Univers 25 mg 7-25 tablet by ity of tablet 00:00: mouth [place] 00 every 6 Medical (six) Branch hours as needed for Anxiety. hydrOXYzine Yes [id number] 25mg Take 1 Univers 25 mg 7-25 tablet by ity of tablet 00:00: mouth [place] [address] every 6 Medical (six) Branch hours as needed for Anxiety. hydrOXYzine 2023-0 Yes [id number] 25mg Take 1 Univers 25 mg 7-25 tablet by ity of tablet 00:00: mouth [place] 00 every 6 Medical (six) Branch hours as needed for Anxiety. hydrOXYzine 2023-0 Yes [id number] 25mg Take 1 Univers 25 mg 7-25 tablet by ity of tablet 00:00: mouth [place] 00 every 6 Medical (six) Branch hours as needed for Anxiety. hydrOXYzine 2023-0 Yes [id number] 25mg Take 1 Univers 25 mg 7-25 tablet by ity of tablet 00:00: mouth [place] 00 every 6 Medical (six) Branch hours as needed for Anxiety. hydrOXYzine 2023-0 Yes [id number] 25mg Take 1 Univers 25 mg 7-25 tablet by ity of tablet 00:00: mouth [place] 00 every 6 Medical (six) Branch hours as needed for Anxiety. hydrOXYzine 2023-0 Yes [id number] 25mg Take 1 Univers 25 mg 7-25 tablet by ity of tablet 00:00: mouth [place] 00 every 6 Medical (six) Branch hours as needed for Anxiety. hydrOXYzine 2023-0 Yes [id number] 25mg Take 1 Univers 25 mg 7-25 tablet by ity of tablet 00:00: mouth [place] 00 every 6 Medical (six) Branch hours as needed for Anxiety. hydrOXYzine 2023-0 Yes [id number] 25mg Take 1 Univers 25 mg 7-25 tablet by ity of tablet 00:00: mouth [place] 00 every 6 Medical (six) Branch hours as needed for Anxiety. hydrOXYzine 2023-0 Yes [id number] 25mg Take 1 Univers 25 mg 7-25 tablet by ity of tablet 00:00: mouth [place] 00 every 6 Medical (six) Branch hours as needed for Anxiety. hydrOXYzine 2023-0 Yes [id number] 25mg Take 1 Univers 25 mg 7-25 tablet by ity of tablet 00:00: mouth [place] 00 every 6 Medical (six) Branch hours as needed for Anxiety. hydrOXYzine 2023-0 Yes [id number] 25mg Take 1 Univers 25 mg 7-25 tablet by ity of tablet 00:00: mouth [place] 00 every 6 Medical (six) Branch hours as needed for Anxiety. hydrOXYzine 2023-0 Yes [id number] 25mg Take 1 Univers 25 mg 7-25 tablet by ity of tablet 00:00: mouth [place] 00 every 6 Medical (six) Branch hours as needed for Anxiety. hydrOXYzine 2022-0 Yes [id number] 25mg Take 1 Univers 25 mg 7-25 tablet by ity of tablet 00:00: mouth [place] 00 every 6 Medical (six) Branch hours as needed for Anxiety. hydrOXYzine 2022-0 Yes [id number] 25mg Take 1 Univers 25 mg 7-25 tablet by ity of tablet 00:00: mouth [place] 00 every 6 Medical (six) Branch hours as needed for Anxiety. hydrOXYzine 2022-0 Yes [id number] 25mg Take 1 Univers 25 mg 7-25 tablet by ity of tablet 00:00: mouth [place] 00 every 6 Medical (six) Branch hours as needed for Anxiety. hydrOXYzine 2022-0 Yes [id number] 25mg Take 1 Univers 25 mg 7-25 tablet by ity of tablet 00:00: mouth [place] 00 every 6 Medical (six) Branch hours as needed for Anxiety. hydrOXYzine 2022-0 Yes [id number] 25mg Take 1 Univers 25 mg 7-25 tablet by ity of tablet 00:00: mouth [place] 00 every 6 Medical (six) Branch hours as needed for Anxiety. hydrOXYzine 2022-0 Yes [id number] 25mg Take 1 Univers 25 mg 7-25 tablet by ity of tablet 00:00: mouth [place] 00 every 6 Medical (six) Branch hours as needed for Anxiety. hydrOXYzine 2022-0 Yes [id number] 25mg Take 1 Univers 25 mg 7-25 tablet by ity of tablet 00:00: mouth [place] 00 every 6 Medical (six) Branch hours as needed for Anxiety. atomoxetine 2022-0 Yes [id number] 80mg Take 1 Univers 80 mg 7-19 capsule by ity of capsule 00:00: mouth in [place] 00 the Medical morning. Branch ARIPiprazol 2022-0 Yes [id number] 15mg Take 1 Un kayleen e 15 mg 7-19 tablet by ity of tablet 00:00: mouth in [place] 00 the Medical morning. Branch lamoTRIgine 2022-0 Yes [id number] 25mg Take 1 Univers 25 mg 7-19 tablet by ity of tablet 00:00: mouth in [place] 00 the Medical morning. Branch naltrexone 3-0 Yes [id number] 50mg Take 1 Uni vers 50 mg 7-19 tablet by ity of tablet 00:00: mouth in [place] 00 the Medical morning. Branch atomoxetine 3-0 Yes [id number] 80mg Take 1 Univers 80 mg 7-19 capsule by ity of capsule 00:00: mouth in [place] the Medical morning. Branch ARIPiprazol 3-0 Yes [id number] 15mg Take 1 Un kayleen e 15 mg 7-19 tablet by ity of tablet 00:00: mouth in [place] the Medical morning. Branch lamoTRIgine 3-0 Yes [id number] 25mg Take 1 Univers 25 mg 7-19 tablet by ity of tablet 00:00: mouth in [place] the Medical morning. Branch naltrexone 3-0 Yes [id number] 50mg Take 1 Uni vers 50 mg 7-19 tablet by ity of tablet 00:00: mouth in [place] the Medical morning. Branch atomoxetine 3-0 Yes [id number] 80mg Take 1 Univers 80 mg 7-19 capsule by ity of capsule 00:00: mouth in [place] the Medical morning. Branch ARIPiprazol 3-0 Yes [id number] 15mg Take 1 Un kayleen e 15 mg 7-19 tablet by ity of tablet 00:00: mouth in [place] the Medical morning. Branch lamoTRIgine 3-0 Yes [id number] 25mg Take 1 Univers 25 mg 7-19 tablet by ity of tablet 00:00: mouth in [place] the Medical morning. Branch naltrexone 3-0 Yes [id number] 50mg Take 1 Uni vers 50 mg 7-19 tablet by ity of tablet 00:00: mouth in [place] the Medical morning. Branch atomoxetine 3-0 Yes [id number] 80mg Take 1 Univers 80 mg 7-19 capsule by ity of capsule 00:00: mouth in [place] the Medical morning. Branch ARIPiprazol 3-0 Yes [id number] 15mg Take 1 Un kayleen e 15 mg 7-19 tablet by ity of tablet 00:00: mouth in [place] 00 the Medical morning. Branch lamoTRIgine 3-0 Yes [id number] 25mg Take 1 Univers 25 mg 7-19 tablet by ity of tablet 00:00: mouth in [place] 00 the Medical morning. Branch naltrexone 3-0 Yes [id number] 50mg Take 1 Uni vers 50 mg 7-19 tablet by ity of tablet 00:00: mouth in [place] 00 the Medical morning. Branch atomoxetine 3-0 Yes [id number] 80mg Take 1 Univers 80 mg 7-19 capsule by ity of capsule 00:00: mouth in [place] the Medical morning. Branch ARIPiprazol 3-0 Yes [id number] 15mg Take 1 Un kayleen e 15 mg 7-19 tablet by ity of tablet 00:00: mouth in [place] the Medical morning. Branch lamoTRIgine 2022-0 Yes [id number] 25mg Take 1 Univers 25 mg 7-19 tablet by ity of tablet 00:00: mouth in [place] the Medical morning. Branch naltrexone 3-0 Yes [id number] 50mg Take 1 Uni vers 50 mg 7-19 tablet by ity of tablet 00:00: mouth in [place] the Medical morning. Branch atomoxetine 2022-0 Yes [id number] 80mg Take 1 Univers 80 mg 7-19 capsule by ity of capsule 00:00: mouth in [place] the Medical morning. Branch ARIPiprazol 2022-0 Yes [id number] 15mg Take 1 Un kayleen e 15 mg 7-19 tablet by ity of tablet 00:00: mouth in [place] the Medical morning. Branch lamoTRIgine 2022-0 Yes [id number] 25mg Take 1 Univers 25 mg 7-19 tablet by ity of tablet 00:00: mouth in [place] the Medical morning. Branch naltrexone 3-0 Yes [id number] 50mg Take 1 Uni vers 50 mg 7-19 tablet by ity of tablet 00:00: mouth in [place] the Medical morning. Branch atomoxetine 2022-0 Yes [id number] 80mg Take 1 Univers 80 mg 7-19 capsule by ity of capsule 00:00: mouth in [place] the Medical morning. Branch ARIPiprazol 3-0 Yes [id number] 15mg Take 1 Un kayleen e 15 mg 7-19 tablet by ity of tablet 00:00: mouth in [place] 00 the Medical morning. Branch lamoTRIgine 3-0 Yes [id number] 25mg Take 1 Univers 25 mg 7-19 tablet by ity of tablet 00:00: mouth in [place] 00 the Medical morning. Branch naltrexone 3-0 Yes [id number] 50mg Take 1 Uni vers 50 mg 7-19 tablet by ity of tablet 00:00: mouth in [place] 00 the Medical morning. Branch atomoxetine 3-0 Yes [id number] 80mg Take 1 Univers 80 mg 7-19 capsule by ity of capsule 00:00: mouth in [place] 00 the Medical morning. Branch ARIPiprazol 3-0 Yes [id number] 15mg Take 1 Un kayleen e 15 mg 7-19 tablet by ity of tablet 00:00: mouth in [place] 00 the Medical morning. Branch lamoTRIgine 3-0 Yes [id number] 25mg Take 1 Univers 25 mg 7-19 tablet by ity of tablet 00:00: mouth in [place] 00 the Medical morning. Branch naltrexone 3-0 Yes [id number] 50mg Take 1 Uni vers 50 mg 7-19 tablet by ity of tablet 00:00: mouth in [place] 00 the Medical morning. Branch atomoxetine 3-0 Yes [id number] 80mg Take 1 Univers 80 mg 7-19 capsule by ity of capsule 00:00: mouth in [place] 00 the Medical morning. Branch ARIPiprazol 3-0 Yes [id number] 15mg Take 1 Un kayleen e 15 mg 7-19 tablet by ity of tablet 00:00: mouth in [place] 00 the Medical morning. Branch lamoTRIgine 3-0 Yes [id number] 25mg Take 1 Univers 25 mg 7-19 tablet by ity of tablet 00:00: mouth in [place] 00 the Medical morning. Branch naltrexone 3-0 Yes [id number] 50mg Take 1 Uni vers 50 mg 7-19 tablet by ity of tablet 00:00: mouth in [place] 00 the Medical morning. Branch atomoxetine 3-0 Yes [id number] 80mg Take 1 Univers 80 mg 7-19 capsule by ity of capsule 00:00: mouth in [place] 00 the Medical morning. Branch ARIPiprazol 3-0 Yes [id number] 15mg Take 1 Un kayleen e 15 mg 7-19 tablet by ity of tablet 00:00: mouth in [place] 00 the Medical morning. Branch lamoTRIgine 3-0 Yes [id number] 25mg Take 1 Univers 25 mg 7-19 tablet by ity of tablet 00:00: mouth in [place] 00 the Medical morning. Branch naltrexone 3-0 Yes [id number] 50mg Take 1 Uni vers 50 mg 7-19 tablet by ity of tablet 00:00: mouth in [place] 00 the Medical morning. Branch atomoxetine 3-0 Yes [id number] 80mg Take 1 Univers 80 mg 7-19 capsule by ity of capsule 00:00: mouth in [place] 00 the Medical morning. Branch ARIPiprazol 3-0 Yes [id number] 15mg Take 1 Un kayleen e 15 mg 7-19 tablet by ity of tablet 00:00: mouth in [place] 00 the Medical morning. Branch lamoTRIgine 3-0 Yes [id number] 25mg Take 1 Univers 25 mg 7-19 tablet by ity of tablet 00:00: mouth in [place] 00 the Medical morning. Branch naltrexone 3-0 Yes [id number] 50mg Take 1 Uni vers 50 mg 7-19 tablet by ity of tablet 00:00: mouth in [place] 00 the Medical morning. Branch atomoxetine 2022-0 Yes [id number] 80mg Take 1 Univers 80 mg 7-19 capsule by ity of capsule 00:00: mouth in [place] 00 the Medical morning. Branch ARIPiprazol 3-0 Yes [id number] 15mg Take 1 Un kayleen e 15 mg 7-19 tablet by ity of tablet 00:00: mouth in [place] 00 the Medical morning. Branch lamoTRIgine 3-0 Yes [id number] 25mg Take 1 Univers 25 mg 7-19 tablet by ity of tablet 00:00: mouth in [place] 00 the Medical morning. Branch naltrexone 3-0 Yes [id number] 50mg Take 1 Uni vers 50 mg 7-19 tablet by ity of tablet 00:00: mouth in [place] 00 the Medical morning. Branch atomoxetine 2022-0 Yes [id number] 80mg Take 1 Univers 80 mg 7-19 capsule by ity of capsule 00:00: mouth in [place] 00 the Medical morning. Branch ARIPiprazol 3-0 Yes [id number] 15mg Take 1 Un kayleen e 15 mg 7-19 tablet by ity of tablet 00:00: mouth in [place] 00 the Medical morning. Branch lamoTRIgine 3-0 Yes [id number] 25mg Take 1 Univers 25 mg 7-19 tablet by ity of tablet 00:00: mouth in [place] 00 the Medical morning. Branch naltrexone 3-0 Yes [id number] 50mg Take 1 Uni vers 50 mg 7-19 tablet by ity of tablet 00:00: mouth in [place] 00 the Medical morning. Branch atomoxetine 3-0 Yes [id number] 80mg Take 1 Univers 80 mg 7-19 capsule by ity of capsule 00:00: mouth in [place] 00 the Medical morning. Branch ARIPiprazol 3-0 Yes [id number] 15mg Take 1 Un kayleen e 15 mg 7-19 tablet by ity of tablet 00:00: mouth in [place] 00 the Medical morning. Branch lamoTRIgine 3-0 Yes [id number] 25mg Take 1 Univers 25 mg 7-19 tablet by ity of tablet 00:00: mouth in [place] 00 the Medical morning. Branch naltrexone 3-0 Yes [id number] 50mg Take 1 Uni vers 50 mg 7-19 tablet by ity of tablet 00:00: mouth in [place] 00 the Medical morning. Branch atomoxetine 2022-0 Yes [id number] 80mg Take 1 Univers 80 mg 7-19 capsule by ity of capsule 00:00: mouth in [place] 00 the Medical morning. Branch ARIPiprazol 2022-0 Yes [id number] 15mg Take 1 Un kayleen e 15 mg 7-19 tablet by ity of tablet 00:00: mouth in [place] the Medical morning. Branch lamoTRIgine 2022-0 Yes [id number] 25mg Take 1 Univers 25 mg 7-19 tablet by ity of tablet 00:00: mouth in [place] 00 the Medical morning. Branch naltrexone 3-0 Yes [id number] 50mg Take 1 Uni vers 50 mg 7-19 tablet by ity of tablet 00:00: mouth in [place] 00 the Medical morning. Branch atomoxetine 2022-0 Yes [id number] 80mg Take 1 Univers 80 mg 7-19 capsule by ity of capsule 00:00: mouth in [place] 00 the Medical morning. Branch ARIPiprazol 3-0 Yes [id number] 15mg Take 1 Un kayleen e 15 mg 7-19 tablet by ity of tablet 00:00: mouth in [place] 00 the Medical morning. Branch lamoTRIgine 3-0 Yes [id number] 25mg Take 1 Univers 25 mg 7-19 tablet by ity of tablet 00:00: mouth in [place] 00 the Medical morning. Branch naltrexone 3-0 Yes [id number] 50mg Take 1 Uni vers 50 mg 7-19 tablet by ity of tablet 00:00: mouth in [place] 00 the Medical morning. Branch atomoxetine 3-0 Yes [id number] 80mg Take 1 Univers 80 mg 7-19 capsule by ity of capsule 00:00: mouth in [place] 00 the Medical morning. Branch ARIPiprazol 2022-0 Yes [id number] 15mg Take 1 Un kayleen e 15 mg 7-19 tablet by ity of tablet 00:00: mouth in [place] 00 the Medical morning. Branch lamoTRIgine 2022-0 Yes [id number] 25mg Take 1 Univers 25 mg 7-19 tablet by ity of tablet 00:00: mouth in [place] 00 the Medical morning. Branch naltrexone 2022-0 Yes [id number] 50mg Take 1 Uni vers 50 mg 7-19 tablet by ity of tablet 00:00: mouth in [place] the Medical morning. Branch atomoxetine 2022-0 Yes [id number] 80mg Take 1 Univers 80 mg 7-19 capsule by ity of capsule 00:00: mouth in [place] 00 the Medical morning. Branch ARIPiprazol 2022-0 Yes [id number] 15mg Take 1 Un kayleen e 15 mg 7-19 tablet by ity of tablet 00:00: mouth in [place] the Medical morning. Branch lamoTRIgine 2022-0 Yes [id number] 25mg Take 1 Univers 25 mg 7-19 tablet by ity of tablet 00:00: mouth in [place] the Medical morning. Branch naltrexone 2022-0 Yes [id number] 50mg Take 1 Uni vers 50 mg 7-19 tablet by ity of tablet 00:00: mouth in [place] the Medical morning. Branch atomoxetine 2022-0 Yes [id number] 80mg Take 1 Univers 80 mg 7-19 capsule by ity of capsule 00:00: mouth in [place] 00 the Medical morning. Branch ARIPiprazol 2022-0 Yes [id number] 15mg Take 1 Un kayleen e 15 mg 7-19 tablet by ity of tablet 00:00: mouth in [place] 00 the Medical morning. Branch lamoTRIgine 2022-0 Yes [id number] 25mg Take 1 Univers 25 mg 7-19 tablet by ity of tablet 00:00: mouth in [place] 00 the Medical morning. Branch naltrexone 2022-0 Yes [id number] 50mg Take 1 Uni vers 50 mg 7-19 tablet by [facility] tablet 00:00: mouth in [place] 00 the Medical morning. Branch atomoxetine 2022-0 Yes [id number] 80mg Take 1 [facility] 80 mg 7-19 capsule by [facility] capsule 00:00: mouth in [place] 00 the Medical morning. Branch ARIPiprazol 2022-0 Yes [id number] 15mg Take 1 Un kayleen e 15 mg 7-19 tablet by [facility] tablet 00:00: mouth in [place] 00 the Medical morning. Branch lamoTRIgine 2022-0 Yes [id number] 25mg Take 1 [facility] 25 mg 7-19 tablet by [facility] tablet 00:00: mouth in [place] 00 the Medical morning. Branch naltrexone 2022-0 Yes [id number] 50mg Take 1 [facility] vers 50 mg 7-19 tablet by [facility] tablet 00:00: mouth in [place] 00 the Medical morning. Branch atomoxetine 2022-0 2022- No [id number] 80mg Take 1 [facility] 80 mg 7-19 10-17 capsule by [facility] capsule 00:00: 00:00 mouth in [place] 00 :00 the Medical morning. Branch ARIPiprazol 2022-0 2022- No [id number] 15mg Take 1 [facility] n[facility] e 15 mg 7-19 10-17 tablet by [facility] tablet 00:00: 00:00 mouth in [place] 00 :00 the Medical morning. Branch lamoTRIgine 2022-0 2022- No [id number] 25mg Take 1 [facility] 25 mg 7-19 10-17 tablet by [facility] of tablet 00:00: 00:00 mouth in [place] 00 :00 the Medical morning. Branch naltrexone 2022-0 2022- No [id number] 50mg Take 1 [facility] 50 mg 7-19 10-17 tablet by [facility] of tablet 00:00: 00:00 mouth in [place] 00 :00 the Medical morning. Branch atomoxetine 2022-0 2022- No [id number] 80mg Take 1 [facility] 80 mg 7-19 10-17 capsule by [facility] of capsule 00:00: 00:00 mouth in [place] 00 :00 the Medical morning. Branch ARIPiprazol 2022-0 3- No [id number] 15mg Take 1 [facility] n[facility] e 15 mg 7-19 10-17 tablet by [facility] tablet 00:00: 00:00 mouth in [place] 00 :00 the Medical morning. Branch lamoTRIgine 2022-0 3- No [id number] 25mg Take 1 [facility] 25 mg 7-19 10-17 tablet by [facility] tablet 00:00: 00:00 mouth in [place] 00 :00 the Medical morning. Branch naltrexone 2022-0 2022- No [id number] 50mg Take 1 [facility] 50 mg 7-19 10-17 tablet by [facility] tablet 00:00: 00:00 mouth in [place] 00 :00 the Medical morning. Branch ARIPiprazol 2022-0 Yes [id number] 15mg Take 1 [facility] e 15 mg 5-01 tablet by [facility] tablet 00:00: mouth in [place] 00 the Medical morning. Branch lamoTRIgine 2022-0 Yes [id number] 25mg Take 1 [facility] 25 mg 5-01 tablet by [facility] tablet 00:00: mouth in [place] 00 the Medical morning. Branch naltrexone 2022-0 Yes [id number] 50mg Take 1 [facility] vers 50 mg 5-01 tablet by [facility] tablet 00:00: mouth in [place] 00 the Medical morning. Branch ARIPiprazol 2022-0 Yes [id number] 15mg Take 1 [facility] e 15 mg 5-01 tablet by [facility] tablet 00:00: mouth in [place] the Medical morning. Branch lamoTRIgine 2022-0 Yes [id number] 25mg Take 1 [facility] 25 mg 5-01 tablet by [facility] tablet 00:00: mouth in [place] the Medical morning. Branch naltrexone 2022-0 Yes [id number] 50mg Take 1 [facility] vers 50 mg 5-01 tablet by [facility] tablet 00:00: mouth in [place] the Medical morning. Branch ARIPiprazol 2022-0 Yes [id number] 15mg Take 1 [facility] e 15 mg 5-01 tablet by [facility] tablet 00:00: mouth in [place] 00 the Medical morning. Branch lamoTRIgine 2022-0 Yes [id number] 25mg Take 1 [facility] 25 mg 5-01 tablet by [facility] of tablet 00:00: mouth in [place] 00 the Medical morning. Branch naltrexone 3-0 Yes [id number] 50mg Take 1 [facility] vers 50 mg 5-01 tablet by [facility] of tablet 00:00: mouth in [place] 00 the Medical morning. Branch ARIPiprazol 2022-0 Yes [id number] 15mg Take 1 [facility] e 15 mg 5-01 tablet by [facility] of tablet 00:00: mouth in [place] 00 the Medical morning. Branch lamoTRIgine 2022-0 Yes [id number] 25mg Take 1 [facility] 25 mg 5-01 tablet by [facility] tablet 00:00: mouth in [place] 00 the Medical morning. Branch naltrexone 2022-0 Yes [id number] 50mg Take 1 [facility] vers 50 mg 5-01 tablet by [facility] of tablet 00:00: mouth in [place] the Medical morning. Branch ARIPiprazol 2022-0 Yes [id number] 15mg Take 1 [facility] e 15 mg 5-01 tablet by [facility] of tablet 00:00: mouth in [place] the Medical morning. Branch lamoTRIgine 2022-0 Yes [id number] 25mg Take 1 [facility] 25 mg 5-01 tablet by [facility] of tablet 00:00: mouth in [place] the Medical morning. Branch naltrexone 2022-0 Yes [id number] 50mg Take 1 [facility] vers 50 mg 5-01 tablet by [facility] tablet 00:00: mouth in [place] the Medical morning. Branch ARIPiprazol 2022-0 Yes [id number] 15mg Take 1 [facility] e 15 mg 5-01 tablet by [facility] of tablet 00:00: mouth in [place] the Medical morning. Branch lamoTRIgine 2022-0 Yes [id number] 25mg Take 1 [facility] 25 mg 5-01 tablet by [facility] of tablet 00:00: mouth in [place] the Medical morning. Branch naltrexone 2022-0 Yes [id number] 50mg Take 1 [facility] vers 50 mg 5-01 tablet by [facility] of tablet 00:00: mouth in [place] the Medical morning. Branch ARIPiprazol 2022-0 Yes [id number] 15mg Take 1 [facility] e 15 mg 5-01 tablet by [facility] tablet 00:00: mouth in [place] the Medical morning. Branch lamoTRIgine 2022-0 Yes [id number] 25mg Take 1 [facility] 25 mg 5-01 tablet by [facility] tablet 00:00: mouth in [place] 00 the Medical morning. Branch naltrexone 2022-0 Yes [id number] 50mg Take 1 [facility] vers 50 mg 5-01 tablet by [facility] tablet 00:00: mouth in [place] 00 the Medical morning. Branch ARIPiprazol 2022-0 Yes [id number] 15mg Take 1 [facility] e 15 mg 5-01 tablet by [facility] tablet 00:00: mouth in [place] 00 the Medical morning. Branch lamoTRIgine 2022-0 Yes [id number] 25mg Take 1 [facility] 25 mg 5-01 tablet by [facility] of tablet 00:00: mouth in [place] the Medical morning. Branch naltrexone 2022-0 Yes [id number] 50mg Take 1 [facility] vers 50 mg 5-01 tablet by [facility] of tablet 00:00: mouth in [place] the Medical morning. Branch ARIPiprazol 2022-0 Yes [id number] 15mg Take 1 [facility] e 15 mg 5-01 tablet by [facility] tablet 00:00: mouth in [place] the Medical morning. Branch lamoTRIgine 2022-0 Yes [id number] 25mg Take 1 [facility] 25 mg 5-01 tablet by [facility] of tablet 00:00: mouth in [place] the Medical morning. Branch naltrexone 2022-0 Yes [id number] 50mg Take 1 [facility] vers 50 mg 5-01 tablet by [facility] of tablet 00:00: mouth in [place] 00 the Medical morning. Branch ARIPiprazol 2022-0 Yes [id number] 15mg Take 1 [facility] e 15 mg 5-01 tablet by [facility] tablet 00:00: mouth in [place] the Medical morning. Branch lamoTRIgine 2022-0 Yes [id number] 25mg Take 1 [facility] 25 mg 5-01 tablet by [facility] tablet 00:00: mouth in [place] the Medical morning. Branch naltrexone 2022-0 Yes [id number] 50mg Take 1 [facility] vers 50 mg 5-01 tablet by [facility] tablet 00:00: mouth in [place] the Medical morning. Branch ARIPiprazol 2022-0 Yes [id number] 15mg Take 1 [facility] e 15 mg 5-01 tablet by [facility] tablet 00:00: mouth in [place] the Medical morning. Branch lamoTRIgine 2022-0 Yes [id number] 25mg Take 1 [facility] 25 mg 5-01 tablet by [facility] tablet 00:00: mouth in [place] 00 the Medical morning. Branch naltrexone 2022-0 Yes [id number] 50mg Take 1 [facility] vers 50 mg 5-01 tablet by [facility] tablet 00:00: mouth in [place] 00 the Medical morning. Branch ARIPiprazol 2022-0 Yes [id number] 15mg Take 1 [facility] e 15 mg 5-01 tablet by [facility] tablet 00:00: mouth in [place] 00 the Medical morning. Branch lamoTRIgine 2022-0 Yes [id number] 25mg Take 1 [facility] 25 mg 5-01 tablet by [facility] of tablet 00:00: mouth in [place] 00 the Medical morning. Branch naltrexone 2022-0 Yes [id number] 50mg Take 1 [facility] vers 50 mg 5-01 tablet by [facility] of tablet 00:00: mouth in [place] 00 the Medical morning. Branch ARIPiprazol 2022-0 Yes [id number] 15mg Take 1 [facility] e 15 mg 5-01 tablet by [facility] of tablet 00:00: mouth in [place] 00 the Medical morning. Branch lamoTRIgine 2022-0 Yes [id number] 25mg Take 1 [facility] 25 mg 5-01 tablet by [facility] of tablet 00:00: mouth in [place] 00 the Medical morning. Branch naltrexone 2022-0 Yes [id number] 50mg Take 1 [facility] vers 50 mg 5-01 tablet by [facility] of tablet 00:00: mouth in [place] 00 the Medical morning. Branch ARIPiprazol 2022-0 Yes [id number] 15mg Take 1 [facility] e 15 mg 5-01 tablet by [facility] tablet 00:00: mouth in [place] the Medical morning. Branch lamoTRIgine 2022-0 Yes [id number] 25mg Take 1 [facility] 25 mg 5-01 tablet by [facility] of tablet 00:00: mouth in [place] the Medical morning. Branch naltrexone 2022-0 Yes [id number] 50mg Take 1 [facility] vers 50 mg 5-01 tablet by [facility] of tablet 00:00: mouth in [place] 00 the Medical morning. Branch ARIPiprazol 2022-0 Yes [id number] 15mg Take 1 [facility] e 15 mg 5-01 tablet by [facility] tablet 00:00: mouth in [place] 00 the Medical morning. Branch lamoTRIgine 2022-0 Yes [id number] 25mg Take 1 [facility] 25 mg 5-01 tablet by [facility] of tablet 00:00: mouth in [place] 00 the Medical morning. Branch naltrexone 2022-0 Yes [id number] 50mg Take 1 [facility] vers 50 mg 5-01 tablet by [facility] of tablet 00:00: mouth in [place] 00 the Medical morning. Branch ARIPiprazol 2022-0 Yes [id number] 15mg Take 1 [facility] kay[facility] e 15 mg 5-01 tablet by [facility] of tablet 00:00: mouth in [place] 00 the Medical morning. Branch lamoTRIgine 2022-0 Yes [id number] 25mg Take 1 [facility] 25 mg 5-01 tablet by [facility] of tablet 00:00: mouth in [place] 00 the Medical morning. Branch naltrexone 2022-0 Yes [id number] 50mg Take 1 [facility] vers 50 mg 5-01 tablet by [facility] of tablet 00:00: mouth in [place] 00 the Medical morning. Branch ARIPiprazol 2022-0 Yes [id number] 15mg Take 1 [facility] e 15 mg 5-01 tablet by [facility] tablet 00:00: mouth in [place] 00 the Medical morning. Branch lamoTRIgine 2022-0 Yes [id number] 25mg Take 1 [facility] 25 mg 5-01 tablet by [facility] of tablet 00:00: mouth in [place] 00 the Medical morning. Branch naltrexone 2022-0 Yes [id number] 50mg Take 1 [facility] vers 50 mg 5-01 tablet by [facility] of tablet 00:00: mouth in [place] 00 the Medical morning. Branch ARIPiprazol 2022-0 Yes [id number] 15mg Take 1 [facility] kay[facility] e 15 mg 5-01 tablet by [facility] of tablet 00:00: mouth in [place] the Medical morning. Branch lamoTRIgine 2022-0 Yes [id number] 25mg Take 1 [facility] 25 mg 5-01 tablet by [facility] of tablet 00:00: mouth in [place] the Medical morning. Branch naltrexone 2022-0 Yes [id number] 50mg Take 1 [facility] vers 50 mg 5-01 tablet by [facility] of tablet 00:00: mouth in [place] 00 the Medical morning. Branch ARIPiprazol 2022-0 Yes [id number] 15mg Take 1 [facility] kay[facility] e 15 mg 5-01 tablet by [facility] of tablet 00:00: mouth in [place] 00 the Medical morning. Branch lamoTRIgine 2022-0 Yes [id number] 25mg Take 1 [facility] 25 mg 5-01 tablet by [facility] of tablet 00:00: mouth in [place] 00 the Medical morning. Branch naltrexone 2022-0 Yes [id number] 50mg Take 1 [facility] vers 50 mg 5-01 tablet by [facility] of tablet 00:00: mouth in [place] 00 the Medical morning. Branch ARIPiprazol 2022-0 Yes [id number] 15mg Take 1 [facility] kay[facility] e 15 mg 5-01 tablet by [facility] of tablet 00:00: mouth in [place] 00 the Medical morning. Branch lamoTRIgine 2022-0 Yes [id number] 25mg Take 1 [facility] 25 mg 5-01 tablet by [facility] of tablet 00:00: mouth in [place] 00 the Medical morning. Branch naltrexone 2022-0 Yes [id number] 50mg Take 1 [facility] vers 50 mg 5-01 tablet by [facility] of tablet 00:00: mouth in [place] 00 the Medical morning. Branch ARIPiprazol 2022-0 Yes [id number] 15mg Take 1 [facility] kay[facility] e 15 mg 5-01 tablet by [facility] of tablet 00:00: mouth in [place] 00 the Medical morning. Branch lamoTRIgine 2022-0 Yes [id number] 25mg Take 1 [facility] 25 mg 5-01 tablet by [facility] of tablet 00:00: mouth in [place] 00 the Medical morning. Branch naltrexone 2022-0 Yes [id number] 50mg Take 1 [facility] vers 50 mg 5-01 tablet by [facility] of tablet 00:00: mouth in [place] 00 the Medical morning. Branch ARIPiprazol 2022-0 Yes [id number] 15mg Take 1 Un kayleen e 15 mg 5-01 tablet by [facility] of tablet 00:00: mouth in [place] the Medical morning. Branch lamoTRIgine 2022-0 Yes [id number] 25mg Take 1 [facility] 25 mg 5-01 tablet by [facility] of tablet 00:00: mouth in [place] 00 the Medical morning. Branch naltrexone 2022-0 Yes [id number] 50mg Take 1 [facility] vers 50 mg 5-01 tablet by [facility] of tablet 00:00: mouth in [place] 00 the Medical morning. Branch ARIPiprazol 2022-0 Yes [id number] 15mg Take 1 [facility] kay[facility] e 15 mg 5-01 tablet by [facility] of tablet 00:00: mouth in [place] 00 the Medical morning. Branch lamoTRIgine 2022-0 Yes [id number] 25mg Take 1 [facility] 25 mg 5-01 tablet by [facility] of tablet 00:00: mouth in [place] 00 the Medical morning. Branch naltrexone 2022-0 Yes [id number] 50mg Take 1 [facility] vers 50 mg 5-01 tablet by [facility] of tablet 00:00: mouth in [place] 00 the Medical morning. Branch atomoxetine 2022-0 3- No [id number] 80mg Take 1 [facility] 80 mg 5-01 01-30 capsule by it[facility] of capsule 00:00: 04:59 mouth in [place] 00 :00 the Medical morning Branch for 90 days. atomoxetine 3-0 2023- No [id number] 80mg Take 1 [facility] 80 mg 5-07 09-31 capsule by [facility] of capsule 00:00: 04:59 mouth in [place] 00 :00 the Medical morning Branch for 90 days. atomoxetine 3-0 3- No [id number] 80mg Take 1 [facility] 80 mg 5-07 09-31 capsule by it[facility] of capsule 00:00: 04:59 mouth in [place] 00 :00 the Medical morning Branch for 90 days. atomoxetine 2022-0 2023- No [id number] 80mg Take 1 [facility] 80 mg 5-07 09-31 capsule by it[facility] of capsule 00:00: 04:59 mouth in [place] 00 :00 the Medical morning Branch for 90 days. atomoxetine 2022-0 3- No [id number] 80mg Take 1 [facility] 80 mg 5-07 09-31 capsule by ity of capsule 00:00: 04:59 mouth in [place] 00 :00 the [facility] morning Branch for 90 days. atomoxetine 2022-0 3- No [id number] 80mg Take 1 [facility] 80 mg 5-07 09-31 capsule by ity of capsule 00:00: 04:59 mouth in [place] 00 :00 the Medical morning Branch for 90 days. atomoxetine 3-0 3- No [id number] 80mg Take 1 [facility] 80 mg 5-07 09-31 capsule by ity of capsule 00:00: 04:59 mouth in [place] 00 :00 the Medical morning Branch for 90 days. atomoxetine 3-0 3- No [id number] 80mg Take 1 [facility] 80 mg 5-07 09-31 capsule by ity of capsule 00:00: 04:59 mouth in [place] 00 :00 the Medical morning Branch for 90 days. atomoxetine 2023-0 2023- No [id number] 80mg Take 1 [facility] 80 mg 5-01 07-31 capsule by ity of capsule 00:00: 04:59 mouth in [place] 00 :00 the Medical morning Branch for 90 days. atomoxetine 2023-0 2023- No [id number] 80mg Take 1 [facility] 80 mg 5-01 -31 capsule by ity of capsule 00:00: 04:59 mouth in [place] 00 :00 the Medical morning Branch for 90 days. atomoxetine 2023-0 2023- No [id number] 80mg Take 1 [facility] 80 mg 5-07 09-31 capsule by ity of capsule 00:00: 04:59 mouth in [place] 00 :00 the Medical morning Branch for 90 days. atomoxetine 2022-0 3- No [id number] 80mg Take 1 [facility] 80 mg 5-07 09-31 capsule by ity of capsule 00:00: 04:59 mouth in [place] 00 :00 the Medical morning Branch for 90 days. atomoxetine 2022-0 3- No [id number] 80mg Take 1 [facility] 80 mg 5-07 09- capsule by ity of capsule 00:00: 04:59 mouth in [place] 00 :00 the Medical morning Branch for 90 days. atomoxetine 2022-0 3- No [id number] 80mg Take 1 [facility] 80 mg 5-07 09-31 capsule by ity of capsule 00:00: 04:59 mouth in [place] 00 :00 the Medical morning Branch for 90 days. atomoxetine 2022-0 2022- No [id number] 80mg Take 1 [facility] 80 mg 5-07 09-31 capsule by ity of capsule 00:00: 04:59 mouth in [place] 00 :00 the [facility] morning Branch for 90 days. atomoxetine 2022-0 3- No [id number] 80mg Take 1 [facility] 80 mg 5-07 09- capsule by ity of capsule 00:00: 04:59 mouth in [place] 00 :00 the [facility] morning Branch for 90 days. atomoxetine 2022-0 3- No [id number] 80mg Take 1 [facility] 80 mg 5-07 09-31 capsule by ity of capsule 00:00: 04:59 mouth in [place] 00 :00 the [facility] morning Branch for 90 days. atomoxetine 2022-0 3- No [id number] 80mg Take 1 [facility] 80 mg 5-07 09-31 capsule by ity of capsule 00:00: 04:59 mouth in [place] 00 :00 the Medical morning Branch for 90 days. atomoxetine 2023-0 2023- No [id number] 80mg Take 1 [facility] 80 mg 5-01 -31 capsule by ity of capsule 00:00: 04:59 mouth in [place] 00 :00 the Medical morning Branch for 90 days. atomoxetine 2022-0 3- No [id number] 80mg Take 1 [facility] 80 mg 5-01 -31 capsule by ity of capsule 00:00: 04:59 mouth in [place] 00 :00 the Medical morning Branch for 90 days. atomoxetine 2022-0 3- No [id number] 80mg Take 1 [facility] 80 mg -01-30 capsule by ity of capsule 00:00: 04:59 mouth in [place] 00 :00 the Medical morning Branch for 90 days. atomoxetine 2022-0 2022- No [id number] 80mg Take 1 [facility] 80 mg 5-01-30 capsule by ity of capsule 00:00: 04:59 mouth in [place] 00 :00 the Medical morning Branch for 90 days. atomoxetine 2022-0 2022- No [id number] 80mg Take 1 [facility] 80 mg 5-01-30 capsule by ity of capsule 00:00: 04:59 mouth in [place] 00 :00 the Medical morning Branch for 90 days. atomoxetine 2022-2022- No [id number] 80mg Take 1 [facility] 80 mg -01-18 capsule by ity of capsule 00:00: 00:00 mouth in [place] 00 :00 the Medical morning Branch for 90 days. ARIPiprazol 2022-2022- No [id number] 15mg Take 1 U nivers e 15 mg -01-18 tablet by ity of tablet 00:00: 00:00 mouth in [place] 00 :00 the Medical morning. Branch lamoTRIgine 2022-0 2022- No [id number] 25mg Take 1 [facility] 25 mg -07 09- tablet by ity of tablet 00:00: 00:00 mouth in [place] 00 :00 the Medical morning. Branch naltrexone 2022-0 2022- No [id number] 50mg Take 1 Un kayleen 50 mg -01-18 tablet by ity of tablet 00:00: 00:00 mouth in [place] 00 :00 the Medical morning. Branch atomoxetine 2022-0 3- No [id number] 80mg Take 1 [facility] 80 mg 5-01-18 capsule by ity of capsule 00:00: 00:00 mouth in [place] 00 :00 the Medical morning Branch for 90 days. ARIPiprazol 2022-0 2022- No [id number] 15mg Take 1 U nivers e 15 mg 5-07 09- tablet by ity of tablet 00:00: 00:00 mouth in [place] 00 :00 the Medical morning. Branch lamoTRIgine 2022-0 2022- No [id number] 25mg Take 1 [facility] 25 mg 5-07 09-19 tablet by ity of tablet 00:00: 00:00 mouth in [place] 00 :00 the Medical morning. Branch naltrexone 2022-0 2022- No [id number] 50mg Take 1 Un kayleen 50 mg 5-07 09- tablet by ity of tablet 00:00: 00:00 mouth in [place] 00 :00 the Medical morning. Branch atomoxetine 2022-0 2022- No [id number] 80mg Take 1 [facility] 80 mg 5-07 09- capsule by ity of capsule 00:00: 00:00 mouth in [place] 00 :00 the Medical morning Branch for 90 days. ARIPiprazol 2022-0 2022- No [id number] 15mg Take 1 U nivers e 15 mg 5-07 09- tablet by ity of tablet 00:00: 00:00 mouth in [place] 00 :00 the Medical morning. Branch lamoTRIgine 2022-0 2022- No [id number] 25mg Take 1 [facility] 25 mg 5-07 09- tablet by ity of tablet 00:00: 00:00 mouth in [place] 00 :00 the Medical morning. Branch naltrexone 2022-0 2022- No [id number] 50mg Take 1 Un kayleen 50 mg -01-18 tablet by ity of tablet 00:00: 00:00 mouth in [place] 00 :00 the Medical morning. Branch atomoxetine 2022-0 2022- No [id number] 80mg Take 1 [facility] 80 mg 5-07 09- capsule by ity of capsule 00:00: 00:00 mouth in [place] 00 :00 the Medical morning Branch for 90 days. ARIPiprazol 2022-0 2022- No [id number] 15mg Take 1 U nivers e 15 mg 5-07 09-19 tablet by ity of tablet 00:00: 00:00 mouth in [place] 00 :00 the Medical morning. Branch lamoTRIgine 2022-0 2022- No [id number] 25mg Take 1 [facility] 25 mg 5-07 09-19 tablet by ity of tablet 00:00: 00:00 mouth in [place] 00 :00 the Medical morning. Branch naltrexone 2022-0 2022- No [id number] 50mg Take 1 Un kayleen 50 mg 10-31 tablet by ity of tablet 00:00: 00:00 mouth in [place] 00 :00 the Medical morning. Branch testosteron Yes INJECT 0.3 [facility] e cypionate 4-27 ML (60MG) ity of 200 mg/mL 00:00: EVERY 1 [place] injection 00 WEEK, Medical [facility]ANE[facility], 49 DAYS. SAFE FOR SUBCUTANEO US USE testosteron Yes INJECT 0.3 [facility] e cypionate 4-27 ML (60MG) ity of 200 mg/mL 00:00: EVERY 1 [place] injection 00 WEEK, Medical SUBCUTANEO [place], 49 DAYS. SAFE FOR SUBCUTANEO US USE testosteron Yes INJECT 0.3 [facility] e cypionate 4-27 ML (60MG) ity of 200 mg/mL 00:00: EVERY 1 [place] injection 00 WEEK, [facility] SUBCUTANEO [place], 49 DAYS. SAFE FOR SUBCUTANEO US USE testosteron Yes INJECT 0.3 [facility] e cypionate 4-27 ML (60MG) ity of 200 mg/mL 00:00: EVERY 1 [place] injection 00 WEEK, [facility] SUBCUTANEO [place], 49 DAYS. SAFE FOR SUBCUTANEO US USE testosteron Yes INJECT 0.3 [facility] e cypionate 4-27 ML (60MG) ity of 200 mg/mL 00:00: EVERY 1 [place] injection 00 WEEK, Medical [place]UTANEO [place], 49 DAYS. SAFE FOR SUBCUTANEO US USE testosteron Yes INJECT 0.3 [facility] e cypionate 4-27 ML (60MG) ity of 200 mg/mL 00:00: EVERY 1 [place] injection 00 WEEK, Medical [place]ANEO [place], 49 DAYS. SAFE FOR SUBCUTANEO US USE testosteron 0 Yes INJECT 0.3 [facility] e cypionate 4-27 ML (60MG) ity of 200 mg/mL 00:00: EVERY 1 [place] injection 00 WEEK, Medical [place]UTANEO [place], 49 DAYS. SAFE FOR SUBCUTANEO US USE testosteron 0 Yes INJECT 0.3 [facility] e cypionate 4-27 ML (60MG) ity of 200 mg/mL 00:00: EVERY 1 [place] injection 00 WEEK, Medical SUBCUTANEO Branch US, 49 DAYS. SAFE FOR SUBCUTANEO US USE testosteron 3-0 Yes INJECT 0.3 [facility] e cypionate 4-27 ML (60MG) ity of 200 mg/mL 00:00: EVERY 1 [place] injection 00 WEEK, Medical SUBCUTANEO Branch US, 49 DAYS. SAFE FOR SUBCUTANEO US USE testosteron 2022-0 Yes INJECT 0.3 [facility] e cypionate 4-27 ML (60MG) ity of 200 mg/mL 00:00: EVERY 1 [place] injection 00 WEEK, Medical SUBCUTANEO Branch US, 49 DAYS. SAFE FOR SUBCUTANEO US USE testosteron 2022-0 Yes INJECT 0.3 [facility] e cypionate 4-27 ML (60MG) ity of 200 mg/mL 00:00: EVERY 1 [place] injection 00 WEEK, Medical SUBCUTANEO Branch US, 49 DAYS. SAFE FOR SUBCUTANEO US USE testosteron 2022-0 Yes INJECT 0.3 [facility] e cypionate 4-27 ML (60MG) ity of 200 mg/mL 00:00: EVERY 1 [place] injection WEEK, Medical SUBCUTANEO Branch US, 49 DAYS. SAFE FOR SUBCUTANEO US USE testosteron 2022-0 Yes INJECT 0.3 [facility] e cypionate 4-27 ML (60MG) ity of 200 mg/mL 00:00: EVERY 1 [place] injection 00 WEEK, Medical SUBCUTANEO Branch US, 49 DAYS. SAFE FOR SUBCUTANEO US USE testosteron 2022-0 Yes INJECT 0.3 [facility] e cypionate 4-27 ML (60MG) ity of 200 mg/mL 00:00: EVERY 1 [place] injection WEEK, Medical SUBCUTANEO Branch US, 49 DAYS. SAFE FOR SUBCUTANEO US USE testosteron 2022-0 Yes INJECT 0.3 [facility] e cypionate 4-27 ML (60MG) ity of 200 mg/mL 00:00: EVERY 1 [place] injection 00 WEEK, Medical SUBCUTANEO Branch US, 49 DAYS. SAFE FOR SUBCUTANEO US USE testosteron 3-0 Yes INJECT 0.3 [facility] e cypionate 4-27 ML (60MG) ity of 200 mg/mL 00:00: EVERY 1 [place] injection 00 WEEK, Medical SUBCUTANEO Branch US, 49 DAYS. SAFE FOR SUBCUTANEO US USE testosteron 2022-0 Yes INJECT 0.3 [facility] e cypionate 4-27 ML (60MG) ity of 200 mg/mL 00:00: EVERY 1 [place] injection WEEK, Medical SUBCUTANEO Branch US, 49 DAYS. SAFE FOR SUBCUTANEO US USE testosteron 0 Yes INJECT 0.3 [facility] e cypionate 4-27 ML (60MG) ity of 200 mg/mL 00:00: EVERY 1 [place] injection WEEK, Medical SUBCUTANEO Branch US, 49 DAYS. SAFE FOR SUBCUTANEO US USE testosteron 2022-0 Yes INJECT 0.3 [facility] e cypionate 4-27 ML (60MG) ity of 200 mg/mL 00:00: EVERY 1 [place] injection WEEK, Medical SUBCUTANEO Branch US, 49 DAYS. SAFE FOR SUBCUTANEO US USE testosteron 2022-0 Yes INJECT 0.3 [facility] e cypionate 4-27 ML (60MG) ity of 200 mg/mL 00:00: EVERY 1 [place] injection WEEK, Medical SUBCUTANEO Branch US, 49 DAYS. SAFE FOR SUBCUTANEO US USE testosteron 2022-0 Yes INJECT 0.3 [facility] e cypionate 4-27 ML (60MG) ity of 200 mg/mL 00:00: EVERY 1 [place] injection WEEK, Medical SUBCUTANEO Branch US, 49 DAYS. SAFE FOR SUBCUTANEO US USE testosteron 0 Yes INJECT 0.3 [facility] e cypionate 4-27 ML (60MG) ity of 200 mg/mL 00:00: EVERY 1 [place] injection WEEK, Medical SUBCUTANEO Branch US, 49 DAYS. SAFE FOR SUBCUTANEO US USE testosteron 0 Yes INJECT 0.3 [facility] e cypionate 4-27 ML (60MG) ity of 200 mg/mL 00:00: EVERY 1 [place] injection WEEK, Medical SUBCUTANEO Branch US, 49 DAYS. SAFE FOR SUBCUTANEO US USE testosteron 2022-0 Yes INJECT 0.3 [facility] e cypionate 4-27 ML (60MG) ity of 200 mg/mL 00:00: EVERY 1 [place] injection 00 WEEK, Medical SUBCUTANEO Branch US, 49 DAYS. SAFE FOR SUBCUTANEO US USE testosteron Yes INJECT 0.3 [facility] e cypionate 4-27 ML (60MG) ity of 200 mg/mL 00:00: EVERY 1 [place] injection WEEK, Medical SUBCUTANEO Branch , 49 DAYS. SAFE FOR SUBCUTANEO US USE testosteron Yes INJECT 0.3 [facility] e cypionate 4-27 ML (60MG) ity of 200 mg/mL 00:00: EVERY 1 [place] injection WEEK, Medical SUBCUTANEO Branch US, 49 DAYS. SAFE FOR SUBCUTANEO US USE testosteron Yes INJECT 0.3 [facility] e cypionate 4-27 ML (60MG) ity of 200 mg/mL 00:00: EVERY 1 [place] injection WEEK, Medical SUBCUTANEO Branch , 49 DAYS. SAFE FOR SUBCUTANEO US USE testosteron Yes INJECT 0.3 [facility] e cypionate 4-27 ML (60MG) ity of 200 mg/mL 00:00: [facility] [place] [facility] SAFE FOR [facility]BCUTANEO US USE testosteron Yes INJECT 0.3 [facility] e cypionate 4-27 ML (60MG) ity of 200 mg/mL 00:00: EVERY 1 [place] injection WEEK, Medical SUBCUTANEO Branch US, 49 DAYS. SAFE FOR SUBCUTANEO US USE testosteron Yes INJECT 0.3 [facility] cypionate 4-27 ML (60MG) ity of 200 mg/mL 00:00: EVERY 1 [place] injection WEEK, Medical SUBCUTANEO Branch US, 49 DAYS. SAFE FOR SUBCUTANEO US USE testosteron Yes INJECT 0.3 [facility] cypionate 4-27 ML (60MG) ity of 200 mg/mL 00:00: EVERY 1 [place] injection WEEK, Medical SUBCUTANEO Branch US, 49 DAYS. SAFE FOR SUBCUTANEO US USE testosteron 0 Yes INJECT 0.3 [facility] cypionate 4-27 ML (60MG) ity of 200 mg/mL 00:00: EVERY 1 [place] injection WEEK, Medical SUBCUTANEO Branch US, 49 DAYS. SAFE FOR SUBCUTANEO US USE testosteron 0 Yes INJECT 0.3 [facility] cypionate 4-27 ML (60MG) ity of 200 mg/mL 00:00: EVERY 1 [place] injection 00 WEEK, Medical SUBCUTANEO Branch US, 49 DAYS. SAFE FOR SUBCUTANEO US USE testosteron 0 Yes INJECT 0.3 [facility] cypionate 4-27 ML (60MG) ity of 200 mg/mL 00:00: EVERY 1 [place] injection 00 WEEK, Medical SUBCUTANEO Branch US, 49 DAYS. SAFE FOR SUBCUTANEO US USE testosteron Yes INJECT 0.3 [facility] cypionate 4-27 ML (60MG) ity of 200 mg/mL 00:00: EVERY 1 [place] injection 00 WEEK, Medical SUBCUTANEO Branch US, 49 DAYS. SAFE FOR SUBCUTANEO US USE atomoxetine Yes [id number] 80mg Take 1 [facility] 80 mg 4-18 capsule by [facility] of capsule 00:00: mouth in [place] 00 the Medical morning. Branch atomoxetine Yes [id number] 80mg Take 1 [facility] 80 mg 4-18 capsule by [facility] of capsule 00:00: mouth in [place] 00 the Medical morning. Branch atomoxetine 2022-0 3- No [id number] 80mg Take 1 [facility] 80 mg 4-18 05-01 capsule by [facility] of capsule 00:00: 00:00 mouth in [place] 00 :00 the Medical morning. Branch atomoxetine 2022-0 3- No [id number] 80mg Take 1 [facility] 80 mg 4-18 05-01 capsule by [facility] of capsule 00:00: 00:00 mouth in [place] 00 :00 the Medical morning. Branch atomoxetine 2022-0 3- No [id number] 80mg Take 1 [facility] 80 mg 4-18 05-01 capsule by [facility] of capsule 00:00: 00:00 mouth in [place] 00 :00 the Medical morning. Branch atomoxetine 2022-0 3- No [id number] 80mg Take 1 [facility] 80 mg 4-18 05-01 capsule by [facility] of capsule 00:00: 00:00 mouth in [place] 00 :00 the Medical morning. Branch atomoxetine 2022-0 3- No [id number] 80mg Take 1 [facility] 80 mg 4-18 05-01 capsule by [facility] of capsule 00:00: 00:00 mouth in [place] 00 :00 the Medical morning. Branch atomoxetine 2022-0 2023- No [id number] 80mg Take 1 [facility] 80 mg 4-18 05-01 capsule by [facility] of capsule 00:00: 00:00 mouth in [place] 00 :00 the Medical morning. Branch atomoxetine 2022-0 2022- No [id number] 80mg Take 1 [facility] 80 mg 4-18 05-01 capsule by [facility] of capsule 00:00: 00:00 mouth in [place] 00 :00 the Medical morning. Branch atomoxetine 2022-0 2022- No [id number] 80mg Take 1 [facility] 80 mg 4-18 05-01 capsule by [facility] of capsule 00:00: 00:00 mouth in [place] 00 :00 the Medical morning. Branch atomoxetine 2022-0 2022- No [id number] 80mg Take 1 [facility] 80 mg 4-18 05-01 capsule by [facility] of capsule 00:00: 00:00 mouth in [place] 00 :00 the Medical morning. Branch atomoxetine 2022-0 2022- No [id number] 80mg Take 1 [facility] 80 mg 4-18 05-01 capsule by [facility] of capsule 00:00: 00:00 mouth in [place] 00 :00 the Medical morning. Branch atomoxetine 2022-0 3- No [id number] 80mg Take 1 [facility] 80 mg 4-18 05-01 capsule by [facility] of capsule 00:00: 00:00 mouth in [place] 00 :00 the Medical morning. Branch ARIPiprazol 2022-0 Yes [id number] 15mg Take 1 [facility] e 15 mg 2-20 tablet by [facility] of tablet 00:00: mouth in [place] 00 the Medical morning. Branch lamoTRIgine 3-0 Yes [id number] 25mg Take 1 [facility] 25 mg 2-20 tablet by [facility] of tablet 00:00: mouth in [place] 00 the Medical morning. Branch ARIPiprazol 3-0 Yes [id number] 15mg Take 1 [facility] e 15 mg 2-20 tablet by [facility] of tablet 00:00: mouth in [place] 00 the Medical morning. Branch lamoTRIgine 3-0 Yes [id number] 25mg Take 1 [facility] 25 mg 2-20 tablet by [facility] of tablet 00:00: mouth in [place] 00 the Medical morning. Branch ARIPiprazol 3-0 Yes [id number] 15mg Take 1 [facility] e 15 mg 2-20 tablet by [facility] of tablet 00:00: mouth in [place] 00 the Medical morning. Branch lamoTRIgine 3-0 Yes [id number] 25mg Take 1 [facility] 25 mg 2-20 tablet by [facility] of tablet 00:00: mouth in [place] 00 the Medical morning. Branch ARIPiprazol 3-0 Yes [id number] 15mg Take 1 [facility] e 15 mg 2-20 tablet by [facility] of tablet 00:00: mouth in [place] 00 the Medical morning. Branch lamoTRIgine 3-0 Yes [id number] 25mg Take 1 [facility] 25 mg 2-20 tablet by [facility] of tablet 00:00: mouth in [place] 00 the Medical morning. Branch ARIPiprazol 3-0 Yes [id number] 15mg Take 1 [facility] e 15 mg 2-20 tablet by [facility] of tablet 00:00: mouth in [place] 00 the Medical morning. Branch lamoTRIgine 3-0 Yes [id number] 25mg Take 1 [facility] 25 mg 2-20 tablet by [facility] of tablet 00:00: mouth in [place] 00 the Medical morning. Branch ARIPiprazol 3-0 Yes [id number] 15mg Take 1 [facility] e 15 mg 2-20 tablet by [facility] of tablet 00:00: mouth in [place] 00 the Medical morning. Branch lamoTRIgine 3-0 Yes [id number] 25mg Take 1 [facility] 25 mg 2-20 tablet by [facility] of tablet 00:00: mouth in [place] 00 the Medical morning. Branch ARIPiprazol 3-0 Yes [id number] 15mg Take 1 [facility] e 15 mg 2-20 tablet by [facility] of tablet 00:00: mouth in [place] 00 the Medical morning. Branch lamoTRIgine 3-0 Yes [id number] 25mg Take 1 [facility] 25 mg 2-20 tablet by [facility] of tablet 00:00: mouth in [place] 00 the Medical morning. Branch ARIPiprazol 3-0 Yes [id number] 15mg Take 1 [facility] e 15 mg 2-20 tablet by [facility] of tablet 00:00: mouth in [place] 00 the Medical morning. Branch lamoTRIgine 3-0 Yes [id number] 25mg Take 1 [facility] 25 mg 2-20 tablet by [facility] of tablet 00:00: mouth in [place] 00 the Medical morning. Branch ARIPiprazol 2023-0 Yes [id number] 15mg Take 1 [facility] e 15 mg 2-20 tablet by [facility] of tablet 00:00: mouth in [place] 00 the Medical morning. Branch lamoTRIgine 3-0 Yes [id number] 25mg Take 1 [facility] 25 mg 2-20 tablet by [facility] of tablet 00:00: mouth in [place] 00 the Medical morning. Branch ARIPiprazol 3-0 Yes [id number] 15mg Take 1 [facility] e 15 mg 2-20 tablet by [facility] of tablet 00:00: mouth in [place] 00 the Medical morning. Branch lamoTRIgine 3-0 Yes [id number] 25mg Take 1 [facility] 25 mg 2-20 tablet by [facility] of tablet 00:00: mouth in [place] 00 the Medical morning. Branch ARIPiprazol 3-0 Yes [id number] 15mg Take 1 [facility] e 15 mg 2-20 tablet by [facility] of tablet 00:00: mouth in [place] 00 the Medical morning. Branch lamoTRIgine 3-0 Yes [id number] 25mg Take 1 [facility] 25 mg 2-20 tablet by [facility] of tablet 00:00: mouth in [place] 00 the Medical morning. Branch ARIPiprazol 3-0 Yes [id number] 15mg Take 1 [facility] e 15 mg 2-20 tablet by [facility] of tablet 00:00: mouth in [place] 00 the Medical morning. Branch lamoTRIgine 3-0 Yes [id number] 25mg Take 1 [facility] 25 mg 2-20 tablet by [facility] of tablet 00:00: mouth in [place] 00 the Medical morning. Branch ARIPiprazol 3-0 Yes [id number] 15mg Take 1 [facility] e 15 mg 2-20 tablet by [facility] of tablet 00:00: mouth in [place] 00 the Medical morning. Branch lamoTRIgine 3-0 Yes [id number] 25mg Take 1 [facility] 25 mg 2-20 tablet by [facility] of tablet 00:00: mouth in [place] 00 the Medical morning. Branch ARIPiprazol 3-0 Yes [id number] 15mg Take 1 [facility] e 15 mg 2-20 tablet by ity of tablet 00:00: mouth in [place] 00 the Medical morning. Branch lamoTRIgine 3-0 Yes [id number] 25mg Take 1 [facility] 25 mg 2-20 tablet by [facility] of tablet 00:00: mouth in [place] 00 the Medical morning. Branch ARIPiprazol 2022-0 Yes [id number] 15mg Take 1 [facility] e 15 mg 2-20 tablet by it[facility] of tablet 00:00: mouth in [place] 00 the Medical morning. Branch lamoTRIgine 2022-0 Yes [id number] 25mg Take 1 [facility] 25 mg 2-20 tablet by ity of tablet 00:00: mouth in [place] 00 the Medical morning. Branch naltrexone 2022-0 2022- No [id number] 50mg Take 1 [facility] 50 mg 2-20 05-22 tablet by [facility] of tablet 00:00: 04:59 mouth in [place] 00 :00 the Medical morning Branch for 90 days. naltrexone 2022-0 2022- No [id number] 50mg Take 1 [facility] 50 mg 2-20 05-22 tablet by ity of tablet 00:00: 04:59 mouth in [place] 00 :00 the [facility] morning Branch for 90 days. naltrexone 2022-0 2022- No [id number] 50mg Take 1 [facility] 50 mg 2-20 05-22 tablet by ity of tablet 00:00: 04:59 mouth in [place] 00 :00 the [facility] morning Branch for 90 days. naltrexone 2022-0 2022- No [id number] 50mg Take 1 [facility] 50 mg 2-20 05-22 tablet by ity of tablet 00:00: 04:59 mouth in [place] 00 :00 the [facility] morning Branch for 90 days. naltrexone 2022-0 2022- No [id number] 50mg Take 1 [facility] 50 mg 2-20 05-22 tablet by ity of tablet 00:00: 04:59 mouth in [place] 00 :00 the [facility] morning Branch for 90 days. naltrexone 2022-0 2022- No [id number] 50mg Take 1 [facility] 50 mg 2-20 05-22 tablet by ity of tablet 00:00: 04:59 mouth in [place] 00 :00 the [facility] morning [place] for 90 days. naltrexone 2022-0 2022- No [id number] 50mg Take 1 [facility] 50 mg 2-20 05-22 tablet by ity of tablet 00:00: 04:59 mouth in [place] 00 :00 the [facility] morning Branch for 90 days. naltrexone 2022-0 2022- No [id number] 50mg Take 1 [facility] 50 mg 2-20 05-22 tablet by ity of tablet 00:00: 04:59 mouth in [place] 00 :00 the Medical morning Branch for 90 days. naltrexone 2022-2022- No [id number] 50mg Take 1 [facility] 50 mg 2-20 05-22 tablet by ity of tablet 00:00: 04:59 mouth in [place] 00 :00 the Medical morning Branch for 90 days. naltrexone 2022-0 2022- No [id number] 50mg Take 1 [facility] 50 mg 2-20 05-22 tablet by ity of tablet 00:00: 04:59 mouth in [place] 00 :00 the Medical morning Branch for 90 days. naltrexone 2022-2022- No [id number] 50mg Take 1 [facility] 50 mg 2-20 05-22 tablet by ity of tablet 00:00: 04:59 mouth in [place] 00 :00 the Medical morning Branch for 90 days. naltrexone 2022-2022- No [id number] 50mg Take 1 [facility] 50 mg 2-20 05-22 tablet by ity of tablet 00:00: 04:59 mouth in [place] 00 :00 the Medical morning Branch for 90 days. naltrexone 2022-2022- No [id number] 50mg Take 1 [facility] 50 mg 2-20 05-22 tablet by ity of tablet 00:00: 04:59 mouth in [place] 00 :00 the [facility] morning Branch for 90 days. naltrexone 2022-2022- No [id number] 50mg Take 1 [facility] 50 mg 2-20 05-22 tablet by ity of tablet 00:00: 04:59 mouth in [place] 00 :00 the [facility] morning Branch for 90 days. naltrexone 2022-2022- No [id number] 50mg Take 1 [facility] 50 mg 2-20 05-22 tablet by ity of tablet 00:00: 04:59 mouth in [place] 00 :00 the [facility] morning Branch for 90 days. ARIPiprazol 2022- No [id number] 15mg Take 1 [facility] e 15 mg 2-20 05-01 tablet by ity of tablet 00:00: 00:00 mouth in [place] 00 :00 the Medical morning. Branch lamoTRIgine 2022-2022- No [id number] 25mg Take 1 [facility] 25 mg 2-20 05-01 tablet by ity of tablet 00:00: 00:00 mouth in [place] 00 :00 the Medical morning. Branch naltrexone 2022-0 2022- No [id number] 50mg Take 1 [facility] 50 mg 2-20 05-01 tablet by ity of tablet 00:00: 00:00 mouth in [place] 00 :00 the Medical morning Branch for 90 days. ARIPiprazol 2023-0 2022- No [id number] 15mg Take 1 [facility] e 15 mg 2-20 05-01 tablet by ity of tablet 00:00: 00:00 mouth in [place] 00 :00 the Medical morning. Branch lamoTRIgine 2022-0 3- No [id number] 25mg Take 1 [facility] 25 mg 2-20 05-01 tablet by ity of tablet 00:00: 00:00 mouth in [place] 00 :00 the Medical morning. Branch naltrexone 3-0 3- No [id number] 50mg Take 1 [facility] 50 mg 2-20 05-01 tablet by ity of tablet 00:00: 00:00 mouth in [place] 00 :00 the Medical morning Branch for 90 days. ARIPiprazol 2022-0 2022- No [id number] 15mg Take 1 [facility] e 15 mg 2-20 05-01 tablet by ity of tablet 00:00: 00:00 mouth in [place] 00 :00 the Medical morning. Branch lamoTRIgine 2022-0 2022- No [id number] 25mg Take 1 [facility] 25 mg 2-20 05-01 tablet by ity of tablet 00:00: 00:00 mouth in [place] 00 :00 the Medical morning. Branch naltrexone 2022-0 2022- No [id number] 50mg Take 1 [facility] 50 mg 2-20 05-01 tablet by ity of tablet 00:00: 00:00 mouth in [place] 00 :00 the Medical morning Branch for 90 days. ARIPiprazol 2022-0 2022- No [id number] 15mg Take 1 [facility] e 15 mg 2-20 05-01 tablet by ity of tablet 00:00: 00:00 mouth in [place] 00 :00 the Medical morning. Branch lamoTRIgine 3-0 3- No [id number] 25mg Take 1 [facility] 25 mg 2-20 05-01 tablet by ity of tablet 00:00: 00:00 mouth in [place] 00 :00 the Medical morning. Branch naltrexone 3-0 3- No [id number] 50mg Take 1 [facility] 50 mg 2-20 05-01 tablet by ity of tablet 00:00: 00:00 mouth in [place] 00 :00 the Medical morning Branch for 90 days. ARIPiprazol 2022-0 2022- No [id number] 15mg Take 1 [facility] e 15 mg 2-20 05-01 tablet by ity of tablet 00:00: 00:00 mouth in [place] 00 :00 the Medical morning. Branch lamoTRIgine 2022-0 2022- No [id number] 25mg Take 1 [facility] 25 mg 2-20 05-01 tablet by ity of tablet 00:00: 00:00 mouth in [place] 00 :00 the Medical morning. Branch naltrexone 2022-0 2022- No [id number] 50mg Take 1 [facility] 50 mg 2-20 05-01 tablet by ity of tablet 00:00: 00:00 mouth in [place] 00 :00 the Medical morning Branch for 90 days. ARIPiprazol 2022-0 2022- No [id number] 15mg Take 1 [facility] e 15 mg 2-20 05-01 tablet by ity of tablet 00:00: 00:00 mouth in [place] 00 :00 the Medical morning. Branch lamoTRIgine 2022-0 2022- No [id number] 25mg Take 1 [facility] 25 mg 2-20 05-01 tablet by ity of tablet 00:00: 00:00 mouth in [place] 00 :00 the Medical morning. Branch naltrexone 2022-0 2022- No [id number] 50mg Take 1 [facility] 50 mg 2-20 05-01 tablet by ity of tablet 00:00: 00:00 mouth in [place] 00 :00 the Medical morning Branch for 90 days. ARIPiprazol 2022-0 2022- No [id number] 15mg Take 1 [facility] e 15 mg 2-20 05-01 tablet by ity of tablet 00:00: 00:00 mouth in [place] 00 :00 the Medical morning. Branch lamoTRIgine 2022-0 2022- No [id number] 25mg Take 1 [facility] 25 mg 2-20 05-01 tablet by ity of tablet 00:00: 00:00 mouth in [place] 00 :00 the Medical morning. Branch naltrexone 2022-0 2022- No [id number] 50mg Take 1 [facility] 50 mg 2-20 05-01 tablet by ity of tablet 00:00: 00:00 mouth in [place] 00 :00 the Medical morning Branch for 90 days. ARIPiprazol 2022-0 2022- No [id number] 15mg Take 1 [facility] e 15 mg 2-20 05-01 tablet by ity of tablet 00:00: 00:00 mouth in [place] 00 :00 the Medical morning. Branch lamoTRIgine 2022-2022- No [id number] 25mg Take 1 [facility] 25 mg 2-20 05-01 tablet by ity of tablet 00:00: 00:00 mouth in [place] 00 :00 the Medical morning. Branch naltrexone 2022-2022- No [id number] 50mg Take 1 [facility] 50 mg 2-20 05-01 tablet by ity of tablet 00:00: 00:00 mouth in [place] 00 :00 the Medical morning Branch for 90 days. ARIPiprazol 2022-0 2022- No [id number] 15mg Take 1 [facility] e 15 mg 2-20 05-01 tablet by ity of tablet 00:00: 00:00 mouth in [place] 00 :00 the Medical morning. Branch lamoTRIgine 2022-2022- No [id number] 25mg Take 1 [facility] 25 mg 2-20 05-01 tablet by ity of tablet 00:00: 00:00 mouth in [place] 00 :00 the Medical morning. Branch naltrexone 2022-2022- No [id number] 50mg Take 1 [facility] 50 mg 2-20 05-01 tablet by ity of tablet 00:00: 00:00 mouth in [place] 00 :00 the Medical morning Branch for 90 days. ARIPiprazol 2022-2022- No [id number] 15mg Take 1 [facility] e 15 mg 2-20 05-01 tablet by ity of tablet 00:00: 00:00 mouth in [place] 00 :00 the Medical morning. Branch lamoTRIgine 2022-2022- No [id number] 25mg Take 1 [facility] 25 mg 2-20 05-01 tablet by ity of tablet 00:00: 00:00 mouth in [place] 00 :00 the Medical morning. Branch naltrexone 2022-2022- No [id number] 50mg Take 1 [facility] 50 mg 2-20 05-01 tablet by ity of tablet 00:00: 00:00 mouth in [place] 00 :00 the Medical morning Branch for 90 days. ARIPiprazol 2022-0 2022- No [id number] 15mg Take 1 [facility] e 15 mg 2-20 05-01 tablet by ity of tablet 00:00: 00:00 mouth in [place] 00 :00 the Medical morning. Branch lamoTRIgine 2022-0 3- No [id number] 25mg Take 1 [facility] 25 mg 2-20 05-01 tablet by ity of tablet 00:00: 00:00 mouth in [place] 00 :00 the Medical morning. Branch naltrexone 2022-0 2022- No [id number] 50mg Take 1 [facility] 50 mg 2-20 05-01 tablet by ity of tablet 00:00: 00:00 mouth in [place] 00 :00 the Medical morning Branch for 90 days. atomoxetine 2022-0 2022- No [id number] 80mg Take 1 [facility] 80 mg 2-20 04-22 capsule by ity of capsule 00:00: 04:59 mouth in [place] 00 :00 the Medical morning Branch for 60 days. atomoxetine 2022-0 2022- No [id number] 80mg Take 1 [facility] 80 mg 2-20 04-22 capsule by ity of capsule 00:00: 04:59 mouth in [place] 00 :00 the Medical morning Branch for 60 days. atomoxetine 2022-0 2022- No [id number] 80mg Take 1 [facility] 80 mg 2-20 04-22 capsule by ity of capsule 00:00: 04:59 mouth in [place] 00 :00 the Medical morning Branch for 60 days. atomoxetine 2022-0 2022- No [id number] 80mg Take 1 [facility] 80 mg 2-20 04-22 capsule by ity of capsule 00:00: 04:59 mouth in [place] 00 :00 the [facility] morning Branch for 60 days. atomoxetine 2022-0 2022- No [id number] 80mg Take 1 [facility] 80 mg 2-20 04-22 capsule by ity of capsule 00:00: 04:59 mouth in [place] 00 :00 the Medical morning Branch for 60 days. atomoxetine 2022-0 2022- No [id number] 80mg Take 1 [facility] 80 mg 2-20 04-22 capsule by ity of capsule 00:00: 04:59 mouth in [place] 00 :00 the Medical morning Branch for 60 days. atomoxetine 2022-0 2022- No [id number] 80mg Take 1 [facility] 80 mg 2-20 04-22 capsule by ity of capsule 00:00: 04:59 mouth in [place] 00 :00 the Medical morning Branch for 60 days. atomoxetine 2022-0 3- No [id number] 80mg Take 1 [facility] 80 mg 2-20 04-22 capsule by ity of capsule 00:00: 04:59 mouth in [place] 00 :00 the Medical morning Branch for 60 days. atomoxetine 3-0 2023- No [id number] 80mg Take 1 [facility] 80 mg 2-20 04-22 capsule by ity of capsule 00:00: 04:59 mouth in [place] 00 :00 the Medical morning Branch for 60 days. atomoxetine 2022-0 3- No [id number] 80mg Take 1 [facility] 80 mg 2-20 04-22 capsule by ity of capsule 00:00: 04:59 mouth in [place] 00 :00 the Medical morning Branch for 60 days. atomoxetine 2022-0 3- No [id number] 80mg Take 1 [facility] 80 mg 2-20 04-22 capsule by ity of capsule 00:00: 04:59 mouth in [place] 00 :00 the [facility] morning Branch for 60 days. atomoxetine 2022-0 3- No [id number] 80mg Take 1 [facility] 80 mg 2-20 04-22 capsule by ity of capsule 00:00: 04:59 mouth in [place] 00 :00 the [facility] morning Branch for 60 days. atomoxetine 2022-0 3- No [id number] 80mg Take 1 [facility] 80 mg 2-20 04-18 capsule by ity of capsule 00:00: 00:00 mouth in [place] 00 :00 the [facility] morning Branch for 60 days. atomoxetine 2022-0 3- No [id number] 80mg Take 1 [facility] 80 mg 2-20 04-18 capsule by ity of capsule 00:00: 00:00 mouth in [place] 00 :00 the [facility] morning Branch for 60 days. atomoxetine 2022-0 3- No [id number] 80mg Take 1 [facility] 80 mg 2-20 04-18 capsule by ity of capsule 00:00: 00:00 mouth in [place] 00 :00 the [facility] morning Branch for 60 days. atomoxetine 2023-0 2023- No [id number] 80mg Take 1 [facility] 80 mg 2-20 04-18 capsule by ity of capsule 00:00: 00:00 mouth in [place] 00 :00 the [facility] morning Branch for 60 days. atomoxetine 3-0 2023- No [id number] 80mg Take 1 [facility] 80 mg 2-20 04-18 capsule by ity of capsule 00:00: 00:00 mouth in [place] 00 :00 the Medical morning Branch for 60 days. atomoxetine 2023-0 2023- No [id number] 80mg Take 1 [facility] 80 mg 2-20 04-18 capsule by ity of capsule 00:00: 00:00 mouth in [place] 00 :00 the Medical morning Branch for 60 days. atomoxetine 2023-0 2023- No [id number] 80mg Take 1 [facility] 80 mg 2-20 04-18 capsule by ity of capsule 00:00: 00:00 mouth in [place] 00 :00 the Medical morning Branch for 60 days. atomoxetine 2023-0 2023- No [id number] 80mg Take 1 [facility] 80 mg 2-20 04-18 capsule by ity of capsule 00:00: 00:00 mouth in [place] 00 :00 the [facility] morning Branch for 60 days. atomoxetine 3-0 3- No [id number] 80mg Take 1 [facility] 80 mg 2-20 04-18 capsule by ity of capsule 00:00: 00:00 mouth in [place] 00 :00 the [facility] morning [place] for 60 days. atomoxetine 3-0 3- No [id number] 80mg Take 1 [facility] 80 mg 2-20 04-18 capsule by ity of capsule 00:00: 00:00 mouth in [place] 00 :00 the [facility] morning Branch for 60 days. atomoxetine 2023-0 3- No [id number] 80mg Take 1 [facility] 80 mg 2-20 04-18 capsule by ity of capsule 00:00: 00:00 mouth in [place] 00 :00 the [facility] morning Branch for 60 days. atomoxetine 2023-0 3- No [id number] 80mg Take 1 [facility] 80 mg 2-20 04-18 capsule by ity of capsule 00:00: 00:00 mouth in [place] 00 :00 the [facility] morning [place] for 60 days. hydrOXYzine 2023-0 Yes [id number] 25mg Take 1 [facility] 25 mg 1-23 tablet by ity of tablet 00:00: mouth [place] [id number] every 6 Medical (six) Branch hours as needed for Anxiety. hydrOXYzine 2023-0 Yes [id number] 25mg Take 1 [facility] 25 mg 1-23 tablet by ity of tablet 00:00: mouth [place] [address] every 6 Medical (six) Branch hours as needed for Anxiety. hydrOXYzine 2023-0 Yes [id number] 25mg Take 1 [facility] 25 mg 1-23 tablet by ity of tablet 00:00: mouth [place] 00 every 6 Medical (six) Branch hours as needed for Anxiety. hydrOXYzine 2023-0 Yes [id number] 25mg Take 1 [facility] 25 mg 1-23 tablet by ity of tablet 00:00: mouth [place] 00 every 6 Medical (six) Branch hours as needed for Anxiety. hydrOXYzine 2023-0 Yes [id number] 25mg Take 1 [facility] 25 mg 1-23 tablet by ity of tablet 00:00: mouth [place] 00 every 6 Medical (six) Branch hours as needed for Anxiety. hydrOXYzine 2023-0 Yes [id number] 25mg Take 1 [facility] 25 mg 1-23 tablet by ity of tablet 00:00: mouth [place] 00 every 6 Medical (six) Branch hours as needed for Anxiety. hydrOXYzine 2023-0 Yes [id number] 25mg Take 1 [facility] 25 mg 1-23 tablet by ity of tablet 00:00: mouth [place] 00 every 6 Medical (six) Branch hours as needed for Anxiety. hydrOXYzine 2023-0 Yes [id number] 25mg Take 1 [facility] 25 mg 1-23 tablet by ity of tablet 00:00: mouth [place] 00 every 6 Medical (six) Branch hours as needed for Anxiety. hydrOXYzine 2023-0 Yes [id number] 25mg Take 1 [facility] 25 mg 1-23 tablet by ity of tablet 00:00: mouth [place] 00 every 6 Medical (six) Branch hours as needed for Anxiety. hydrOXYzine 2023-0 Yes [id number] 25mg Take 1 [facility] 25 mg 1-23 tablet by ity of tablet 00:00: mouth [place] 00 every 6 Medical (six) Branch hours as needed for Anxiety. hydrOXYzine 2023-0 Yes [id number] 25mg Take 1 [facility] 25 mg 1-23 tablet by ity of tablet 00:00: mouth [place] 00 every 6 Medical (six) Branch hours as needed for Anxiety. hydrOXYzine 2023-0 Yes [id number] 25mg Take 1 [facility] 25 mg 1-23 tablet by ity of tablet 00:00: mouth [place] 00 every 6 Medical (six) Branch hours as needed for Anxiety. hydrOXYzine 2023-0 Yes [id number] 25mg Take 1 [facility] 25 mg 1-23 tablet by ity of tablet 00:00: mouth [place] 00 every 6 Medical (six) Branch hours as needed for Anxiety. hydrOXYzine 2023-0 Yes [id number] 25mg Take 1 [facility] 25 mg 1-23 tablet by ity of tablet 00:00: mouth [place] 00 every 6 Medical (six) Branch hours as needed for Anxiety. hydrOXYzine 2023-0 Yes [id number] 25mg Take 1 [facility] 25 mg 1-23 tablet by ity of tablet 00:00: mouth [place] 00 every 6 Medical (six) Branch hours as needed for Anxiety. hydrOXYzine 2023-0 Yes [id number] 25mg Take 1 [facility] 25 mg 1-23 tablet by ity of tablet 00:00: mouth [place] 00 every 6 Medical (six) Branch hours as needed for Anxiety. hydrOXYzine 2023-0 Yes [id number] 25mg Take 1 [facility] 25 mg 1-23 tablet by ity of tablet 00:00: mouth [place] 00 every 6 Medical (six) Branch hours as needed for Anxiety. hydrOXYzine 2023-0 Yes [id number] 25mg Take 1 [facility] 25 mg 1-23 tablet by ity of tablet 00:00: mouth [place] 00 every 6 Medical (six) Branch hours as needed for Anxiety. hydrOXYzine 2023-0 Yes [id number] 25mg Take 1 [facility] 25 mg 1-23 tablet by ity of tablet 00:00: mouth [place] 00 every 6 Medical (six) Branch hours as needed for Anxiety. hydrOXYzine 2023-0 Yes [id number] 25mg Take 1 [facility] 25 mg 1-23 tablet by ity of tablet 00:00: mouth [place] 00 every 6 Medical (six) Branch hours as needed for Anxiety. hydrOXYzine 2023-0 Yes [id number] 25mg Take 1 [facility] 25 mg 1-23 tablet by ity of tablet 00:00: mouth [place] 00 every 6 Medical (six) Branch hours as needed for Anxiety. hydrOXYzine 2023-0 Yes [id number] 25mg Take 1 [facility] 25 mg 1-23 tablet by ity of tablet 00:00: mouth [place] 00 every 6 Medical (six) Branch hours as needed for Anxiety. hydrOXYzine 2023-0 Yes [id number] 25mg Take 1 [facility] 25 mg 1-23 tablet by [facility] of tablet 00:00: mouth [place] 00 every 6 Medical (six) Branch hours as needed for Anxiety. hydrOXYzine 2023-0 Yes [id number] 25mg Take 1 [facility] 25 mg 1-23 tablet by [facility] of tablet 00:00: mouth [place] 00 every 6 Medical (six) Branch hours as needed for Anxiety. hydrOXYzine 2023-0 Yes [id number] 25mg Take 1 [facility] 25 mg 1-23 tablet by [facility] of tablet 00:00: mouth [place] 00 every 6 Medical (six) Branch hours as needed for Anxiety. hydrOXYzine 2023-0 Yes [id number] 25mg Take 1 [facility] 25 mg 1-23 tablet by [facility] of tablet 00:00: mouth [place] 00 every 6 Medical (six) Branch hours as needed for Anxiety. hydrOXYzine 2023-0 Yes [id number] 25mg Take 1 [facility] 25 mg 1-23 tablet by [facility] of tablet 00:00: mouth [place] 00 every 6 Medical (six) Branch hours as needed for Anxiety. hydrOXYzine 2023-0 Yes [id number] 25mg Take 1 [facility] 25 mg 1-23 tablet by [facility] of tablet 00:00: mouth [place] 00 every 6 Medical (six) Branch hours as needed for Anxiety. hydrOXYzine 2023-0 Yes [id number] 25mg Take 1 [facility] 25 mg 1-23 tablet by [facility] of tablet 00:00: mouth [place] 00 every 6 Medical (six) Branch hours as needed for Anxiety. hydrOXYzine 2023-0 Yes [id number] 25mg Take 1 [facility] 25 mg 1-23 tablet by [facility] of tablet 00:00: mouth [place] 00 every 6 Medical (six) Branch hours as needed for Anxiety. hydrOXYzine 2023-0 Yes [id number] 25mg Take 1 [facility] 25 mg 1-23 tablet by [facility] of tablet 00:00: mouth [place] 00 every 6 Medical (six) Branch hours as needed for Anxiety. hydrOXYzine 2023-0 Yes [id number] 25mg Take 1 [facility] 25 mg 1-23 tablet by [facility] of tablet 00:00: mouth [place] 00 every 6 Medical (six) Branch hours as needed for Anxiety. hydrOXYzine 2023-0 Yes [id number] 25mg Take 1 [facility] 25 mg 1-23 tablet by [facility] of tablet 00:00: mouth [place] 00 every 6 Medical (six) Branch hours as needed for Anxiety. hydrOXYzine 2023-0 Yes [id number] 25mg Take 1 [facility] 25 mg 1-23 tablet by [facility] of tablet 00:00: mouth [place] 00 every 6 Medical (six) Branch hours as needed for Anxiety. hydrOXYzine 2023-0 Yes [id number] 25mg Take 1 [facility] 25 mg 1-23 tablet by [facility]y of tablet 00:00: mouth [place] 00 every 6 Medical (six) Branch hours as needed for Anxiety. hydrOXYzine 2023-0 Yes [id number] 25mg Take 1 [facility] 25 mg 1-23 tablet by [facility]y of tablet 00:00: mouth [place] 00 every 6 Medical (six) Branch hours as needed for Anxiety. hydrOXYzine 2023-0 Yes [id number] 25mg Take 1 [facility] 25 mg 1-23 tablet by [facility] of tablet 00:00: mouth [place] 00 every 6 Medical (six) Branch hours as needed for Anxiety. hydrOXYzine 2023-0 Yes [id number] 25mg Take 1 [facility] 25 mg 1-23 tablet by [facility]y of tablet 00:00: mouth [place] 00 every 6 Medical (six) Branch hours as needed for Anxiety. hydrOXYzine 2023-0 Yes [id number] 25mg Take 1 [facility] 25 mg 1-23 tablet by [facility] of tablet 00:00: mouth [place] 00 every 6 Medical (six) Branch hours as needed for Anxiety. hydrOXYzine 2023-0 Yes [id number] 25mg Take 1 [facility] 25 mg 1-23 tablet by [facility] of tablet 00:00: mouth [place] 00 every 6 Medical (six) Branch hours as needed for Anxiety. hydrOXYzine 2023-0 Yes [id number] 25mg Take 1 [facility] 25 mg 1-23 tablet by [facility] of tablet 00:00: mouth [place] 00 every 6 Medical (six) Branch hours as needed for Anxiety. hydrOXYzine 2023-0 Yes [id number] 25mg Take 1 [facility] 25 mg 1-23 tablet by [facility] of tablet 00:00: mouth [place] 00 every 6 Medical (six) Branch hours as needed for Anxiety. hydrOXYzine 2023-0 Yes [id number] 25mg Take 1 [facility] 25 mg 1-23 tablet by [facility] of tablet 00:00: mouth [place] 00 every 6 Medical (six) Branch hours as needed for Anxiety. hydrOXYzine 2023-0 Yes [id number] 25mg Take 1 [facility] 25 mg 1-23 tablet by [facility] of tablet 00:00: mouth [place] 00 every 6 Medical (six) Branch hours as needed for Anxiety. hydrOXYzine 2023-0 2023- No [id number] 25mg Take 1 [facility] 25 mg 1-23 07-22 tablet by [facility] of tablet 00:00: 00:00 mouth [place] 00 :00 every 6 Medical (six) Branch hours as needed for Anxiety. hydrOXYzine 2022-0 3- No [id number] 25mg Take 1 [facility] 25 mg 1-23 07-22 tablet by it[facility] of tablet 00:00: 00:00 mouth [place] 00 :00 every 6 Medical (six) Branch hours as needed for Anxiety. lamoTRIgine 3-0 Yes [id number] 25mg Take 1 [facility] 25 mg 1-11 tablet by it[facility] of tablet 00:00: mouth in [place] 00 the Medical morning. Branch lamoTRIgine 3-0 Yes [id number] 25mg Take 1 [facility] 25 mg 1-11 tablet by [facility] of tablet 00:00: mouth in [place] 00 the Medical morning. Branch lamoTRIgine 3-0 Yes [id number] 25mg Take 1 [facility] 25 mg 1-11 tablet by [facility] of tablet 00:00: mouth in [place] 00 the Medical morning. Branch lamoTRIgine 2022-0 Yes [id number] 25mg Take 1 [facility] 25 mg 1-11 tablet by [facility] of tablet 00:00: mouth in [place] 00 the Medical morning. Branch lamoTRIgine 2022-0 Yes [id number] 25mg Take 1 [facility] 25 mg 1-11 tablet by [facility] of tablet 00:00: mouth in [place] 00 the Medical morning. Branch lamoTRIgine 3-0 3- No [id number] 25mg Take 1 [facility] 25 mg 1-11 02-20 tablet by ity of tablet 00:00: 00:00 mouth in [place] 00 :00 the Medical morning. Branch lamoTRIgine 3-0 3- No [id number] 25mg Take 1 [facility] 25 mg 1-11 02-20 tablet by ity of tablet 00:00: 00:00 mouth in [place] 00 :00 the Medical morning. Branch lamoTRIgine 3-0 3- No [id number] 25mg Take 1 [facility] 25 mg 1-11 02-20 tablet by ity of tablet 00:00: 00:00 mouth in [place] 00 :00 the Medical morning. Branch lamoTRIgine 3-0 3- No [id number] 25mg Take 1 [facility] 25 mg 1-11 02-20 tablet by ity of tablet 00:00: 00:00 mouth in [place] 00 :00 the Medical morning. Branch lamoTRIgine 2022-2022- No [id number] 25mg Take 1 [facility] 25 mg 1-11 02-20 tablet by ity of tablet 00:00: 00:00 mouth in [place] 00 :00 the Medical morning. Branch lamoTRIgine 2022-2022- No [id number] 25mg Take 1 [facility] 25 mg 1-11 02-20 tablet by ity of tablet 00:00: 00:00 mouth in [place] 00 :00 the Medical morning. Branch lamoTRIgine 2022-2022- No [id number] 25mg Take 1 [facility] 25 mg 1-11 02-20 tablet by ity of tablet 00:00: 00:00 mouth in [place] 00 :00 the Medical morning. Branch ARIPiprazol 2022-2022- No [id number] 15mg Take 1 [facility] e 15 mg 1-10 04-11 tablet by ity of tablet 00:00: 04:59 mouth in [place] 00 :00 the Medical morning Branch for 90 days. ARIPiprazol 2022-2022- No [id number] 15mg Take 1 [facility] e 15 mg 1-10 04-11 tablet by ity of tablet 00:00: 04:59 mouth in [place] 00 :00 the Medical morning Branch for 90 days. ARIPiprazol 2022-2022- No [id number] 15mg Take 1 [facility] e 15 mg 1-10 04-11 tablet by ity of tablet 00:00: 04:59 mouth in [place] 00 :00 the Medical morning Branch for 90 days. ARIPiprazol 2022-2022- No [id number] 15mg Take 1 [facility] e 15 mg 1-10 04-11 tablet by ity of tablet 00:00: 04:59 mouth in [place] 00 :00 the Medical morning Branch for 90 days. ARIPiprazol 2022-2022- No [id number] 15mg Take 1 [facility] e 15 mg 1-10 04-11 tablet by ity of tablet 00:00: 04:59 mouth in [place] 00 :00 the Medical morning Branch for 90 days. ARIPiprazol 2022-2022- No [id number] 15mg Take 1 [facility] e 15 mg 1-10 04-11 tablet by ity of tablet 00:00: 04:59 mouth in [place] 00 :00 [facility] for 90 days. ARIPiprazol 2022- No [id number] 15mg Take 1 [facility] e 15 mg 1-10 02-20 tablet by ity of tablet 00:00: 00:00 mouth in [place] 00 :00 the [facility] for 90 days. ARIPiprazol 2022- No [id number] 15mg Take 1 [facility] e 15 mg 1-10 02-20 tablet by ity of tablet 00:00: 00:00 mouth in [place] 00 :00 the [facility] for 90 days. ARIPiprazol 2022- No [id number] 15mg Take 1 [facility] e 15 mg 1-10 02-20 tablet by ity of tablet 00:00: 00:00 mouth in [place] 00 :00 the [facility] for 90 days. ARIPiprazol No [id number] 15mg Take 1 [facility] e 15 mg 1-10 02-20 tablet by ity of tablet 00:00: 00:00 mouth in [place] 00 :00 [facility] for 90 days. ARIPiprazol 2022- No [id number] 15mg Take 1 [facility] e 15 mg 1-10 02-20 tablet by ity of tablet 00:00: 00:00 mouth in [place] 00 :00 [facility] for 90 days. ARIPiprazol 2022- No [id number] 15mg Take 1 [facility] e 15 mg 1-10 02-20 tablet by ity of tablet 00:00: 00:00 mouth in [place] 00 :00 [facility] for 90 days. ARIPiprazol 2022- No [id number] 15mg Take 1 [facility] e 15 mg 1-10 02-20 tablet by ity of tablet 00:00: 00:00 mouth in [place] 00 :00 [facility] for 90 days. ARIPiprazol 2021-07- No [id number] 300mg [facility] e (ABILIFY 2-15 12-15 ity of [facility]) 17:45: 16:48 [place] injection 00 :00 Medical SSRR 300 mg Branch ARIPiprazol 2021-07- No [id number] 300mg [facility] e (ABILIFY 2-15 12-[address] [facility]) 17:45: 16:48 [place] injection 00 :00 Medical SSRR 300 mg Branch ARIPiprazol 2021-07- No [id number] 300mg [facility] e (ABILIFY 2-15 12-[address] [facility]) 17:45: 16:48 [place] injection 00 :00 Medical SSRR 300 mg Branch ARIPiprazol 2021-07- No [id number] 300mg [facility] e (ABILIFY 2-15 12-[address] [facility]) 17:45: 16:48 [place] injection 00 :00 Medical SSRR 300 mg Branch hydrOXYzine 2021-07 Yes [id number] 25mg Take 1 [facility] 25 mg 2-12 tablet by ity of tablet 00:00: mouth [place] 00 every 6 Medical (six) Branch hours as needed for Anxiety. lamoTRIgine 2021-07 Yes [id number] 25mg Take 1 [facility] 25 mg 2-12 tablet by ity of tablet 00:00: mouth in [place] 00 the Medical morning. Branch naltrexone 2021-07 Yes [id number] 50mg Take 1 [facility] vers 50 mg 2-12 tablet by ity of tablet 00:00: mouth in [place] 00 the Medical morning. Branch hydrOXYzine 2021-07 Yes [id number] 25mg Take 1 [facility] 25 mg 2-12 tablet by ity of tablet 00:00: mouth [place] 00 every 6 Medical (six) Branch hours as needed for Anxiety. lamoTRIgine 2021-07 Yes [id number] 25mg Take 1 [facility] 25 mg 2-12 tablet by ity of tablet 00:00: mouth in [place] 00 the Medical morning. Branch naltrexone 2021-07 Yes [id number] 50mg Take 1 [facility] vers 50 mg 2-12 tablet by ity of tablet 00:00: mouth in [place] 00 the Medical morning. Branch hydrOXYzine 2021-07 Yes [id number] 25mg Take 1 [facility] 25 mg 2-12 tablet by ity of tablet 00:00: mouth [place] 00 every 6 Medical (six) Branch hours as needed for Anxiety. lamoTRIgine 2021-07 Yes [id number] 25mg Take 1 [facility] 25 mg 2-12 tablet by ity of tablet 00:00: mouth in [place] 00 the Medical morning. Branch naltrexone 2021-07 Yes [id number] 50mg Take 1 [facility] vers 50 mg 2-12 tablet by ity of tablet 00:00: mouth in [place] 00 the Medical morning. Branch hydrOXYzine 2021-07 Yes [id number] 25mg Take 1 [facility] 25 mg 2-12 tablet by ity of tablet 00:00: mouth [place] 00 every 6 Medical (six) Branch hours as needed for Anxiety. lamoTRIgine 2021-07 Yes [id number] 25mg Take 1 [facility] 25 mg 2-12 tablet by ity of tablet 00:00: mouth in [place] 00 the Medical morning. Branch naltrexone 2021-07 Yes [id number] 50mg Take 1 [facility] vers 50 mg 2-12 tablet by ity of tablet 00:00: mouth in [place] 00 the Medical morning. Branch hydrOXYzine 2021-07 Yes [id number] 25mg Take 1 [facility] 25 mg 2-12 tablet by ity of tablet 00:00: mouth [place] 00 every 6 Medical (six) Branch hours as needed for Anxiety. lamoTRIgine 2021-07 Yes [id number] 25mg Take 1 [facility] 25 mg 2-12 tablet by ity of tablet 00:00: mouth in [place] 00 the Medical morning. Branch naltrexone 2021-07 Yes [id number] 50mg Take 1 [facility] vers 50 mg 2-12 tablet by ity of tablet 00:00: mouth in [place] 00 the Medical morning. Branch hydrOXYzine 2021-07 Yes [id number] 25mg Take 1 [facility] 25 mg 2-12 tablet by ity of tablet 00:00: mouth [place] 00 every 6 Medical (six) Branch hours as needed for Anxiety. lamoTRIgine 2021-07 Yes [id number] 25mg Take 1 [facility] 25 mg 2-12 tablet by ity of tablet 00:00: mouth in [place] 00 the Medical morning. Branch naltrexone 2021-07 Yes [id number] 50mg Take 1 [facility] vers 50 mg 2-12 tablet by ity of tablet 00:00: mouth in [place] 00 the Medical morning. Branch hydrOXYzine 2021-07 Yes [id number] 25mg Take 1 [facility] 25 mg 2-12 tablet by ity of tablet 00:00: mouth [place] 00 every 6 Medical (six) Branch hours as needed for Anxiety. lamoTRIgine 2021-07 Yes [id number] 25mg Take 1 [facility] 25 mg 2-12 tablet by ity of tablet 00:00: mouth in [place] 00 the Medical morning. Branch naltrexone 2021-07 Yes [id number] 50mg Take 1 [facility] vers 50 mg 2-12 tablet by ity of tablet 00:00: mouth in [place] 00 the Medical morning. Branch hydrOXYzine 2021-07 Yes [id number] 25mg Take 1 [facility] 25 mg 2-12 tablet by ity of tablet 00:00: mouth [place] 00 every 6 Medical (six) Branch hours as needed for Anxiety. lamoTRIgine 2021-07 Yes [id number] 25mg Take 1 [facility] 25 mg 2-12 tablet by ity of tablet 00:00: mouth in [place] 00 the Medical morning. Branch naltrexone 2021-07 Yes [id number] 50mg Take 1 [facility] vers 50 mg 2-12 tablet by ity of tablet 00:00: mouth in [place] 00 the Medical morning. Branch hydrOXYzine 2021-07 Yes [id number] 25mg Take 1 [facility] 25 mg 2-12 tablet by ity of tablet 00:00: mouth [place] 00 every 6 Medical (six) Branch hours as needed for Anxiety. lamoTRIgine 2021-07 Yes [id number] 25mg Take 1 [facility] 25 mg 2-12 tablet by ity of tablet 00:00: mouth in [place] 00 the Medical morning. Branch naltrexone 2021-07 Yes [id number] 50mg Take 1 [facility] vers 50 mg 2-12 tablet by ity of tablet 00:00: mouth in [place] 00 the Medical morning. Branch hydrOXYzine 2021-07 Yes [id number] 25mg Take 1 [facility] 25 mg 2-12 tablet by ity of tablet 00:00: mouth [place] 00 every 6 Medical (six) Branch hours as needed for Anxiety. naltrexone 2021-07 Yes [id number] 50mg Take 1 [facility] vers 50 mg 2-12 tablet by ity of tablet 00:00: mouth in [place] 00 the Medical morning. Branch naltrexone 2021-07 Yes [id number] 50mg Take 1 [facility] vers 50 mg 2-12 tablet by ity of tablet 00:00: mouth in [place] 00 the Medical morning. Branch naltrexone 2021- Yes [id number] 50mg Take 1 [facility] vers 50 mg 2-12 tablet by ity of tablet 00:00: mouth in [place] 00 the Medical morning. Branch naltrexone 2021- Yes [id number] 50mg Take 1 [facility] vers 50 mg 2-12 tablet by ity of tablet 00:00: mouth in [place] 00 the Medical morning. Branch naltrexone 2021-07 Yes [id number] 50mg Take 1 [facility] vers 50 mg 2-12 tablet by ity of tablet 00:00: mouth in [place] 00 the Medical morning. Branch atomoxetine 2021-07- No [id number] 60mg Take 1 [facility] (STRATTERA) 08-14 capsule by i ty of 60 mg 00:00: 04:59 mouth in [place] capsule 00 :00 the Medical morning Branch for 90 days. atomoxetine 2021-07- No [id number] 60mg Take 1 [facility] (STRATTERA) 08-14 capsule by i ty of 60 mg 00:00: 04:59 mouth in [place] capsule 00 :00 the Medical morning Branch for 90 days. atomoxetine 2021-07- No [id number] 60mg Take 1 [facility] (STRATTERA) 08-14 capsule by i ty of 60 mg 00:00: 04:59 mouth in [place] capsule 00 :00 the Medical morning [place] for 90 days. atomoxetine 2021-07- No [id number] 60mg Take 1 [facility] (STRATTERA) 08-14 capsule by i ty of 60 mg 00:00: 04:59 mouth in [place] capsule 00 :00 the [facility] morning [place] for 90 days. atomoxetine 2021-07- No [id number] 60mg Take 1 [facility] (STRATTERA) 08-14 capsule by i ty of 60 mg 00:00: 04:59 mouth in [place] capsule 00 :00 the Medical morning [place] for 90 days. atomoxetine 2021-07- No [id number] 60mg Take 1 [facility] (STRATTERA) 08-14 capsule by i ty of 60 mg 00:00: 04:59 mouth in [place] capsule 00 :00 the Medical morning [place] for 90 days. atomoxetine 2021-07- No [id number] 60mg Take 1 [facility] (STRATTERA) 08-14 capsule by i ty of 60 mg 00:00: 04:59 mouth in [place] capsule 00 :00 the Medical morning [place] for 90 days. atomoxetine 2021-07- No [id number] 60mg Take 1 [facility] (STRATTERA) 08-14 capsule by i ty of 60 mg 00:00: 04:59 mouth in [place] capsule 00 :00 the Medical morning [place] for 90 days. atomoxetine 2021-07- No [id number] 60mg Take 1 [facility] (STRATTERA) 08-14 capsule by i ty of 60 mg 00:00: 04:59 mouth in [place] capsule 00 :00 the [facility] for 90 days. atomoxetine 2021-07- No [id number] 60mg Take 1 [facility] (STRATTERA) 08-14 capsule by i ty of 60 mg 00:00: 04:59 mouth in [place] capsule 00 :00 the [facility] for 90 days. atomoxetine 2021-07- No [id number] 60mg Take 1 [facility] (STRATTERA) 08-14 capsule by i ty of 60 mg 00:00: 04:59 mouth in [place] capsule 00 :00 the [facility] for 90 days. atomoxetine 2021-07- No [id number] 60mg Take 1 [facility] (STRATTERA) 08-14 capsule by i ty of 60 mg 00:00: 04:59 mouth in [place] capsule 00 :00 the [facility] for 90 days. atomoxetine 2021-07- No [id number] 60mg Take 1 [facility] (STRATTERA) 08-14 capsule by i ty of 60 mg 00:00: 04:59 mouth in [place] capsule 00 :00 the [facility] for 90 days. atomoxetine 2021-07- No [id number] 60mg Take 1 [facility] (STRATTERA) 08-14 capsule by i ty of 60 mg 00:00: 04:59 mouth in [place] capsule 00 :00 the [facility] for 90 days. atomoxetine 2021-07- No [id number] 60mg Take 1 [facility] (STRATTERA) 08-14 capsule by i ty of 60 mg 00:00: 00:00 mouth in [place] capsule 00 :00 the [facility] for 90 days. naltrexone 2021-07- No [id number] 50mg Take 1 Un [place] 50 mg 08-14 tablet by ity of tablet 00:00: 00:00 mouth in [place] 00 :00 the [facility] morning. Branch atomoxetine 2021-07- No [id number] 60mg Take 1 [facility] (STRATTERA) 08-14 capsule by i ty of 60 mg 00:00: 00:00 mouth in [place] capsule 00 :00 the Medical morning Branch for 90 days. naltrexone 2021-07- No [id number] 50mg Take 1 Un [place] 50 mg 2-12 02-20 tablet by ity of tablet 00:00: 00:00 mouth in [place] 00 :00 the Medical morning. Branch atomoxetine 2021-07- No [id number] 60mg Take 1 [facility] (STRATTERA) 2-12 02-20 capsule by i ty of 60 mg 00:00: 00:00 mouth in [place] capsule 00 :00 the Medical morning Branch for 90 days. naltrexone 2021-07- No [id number] 50mg Take 1 Un [place] 50 mg 2-12 02-20 tablet by ity of tablet 00:00: 00:00 mouth in [place] 00 :00 the Medical morning. Branch atomoxetine 2021-07- No [id number] 60mg Take 1 [facility] (STRATTERA) 2-12 02-20 capsule by i ty of 60 mg 00:00: 00:00 mouth in [place] capsule 00 :00 the Medical morning Branch for 90 days. naltrexone 2021-07- No [id number] 50mg Take 1 Un [place] 50 mg 2-12 02-20 tablet by ity of tablet 00:00: 00:00 mouth in [place] 00 :00 the Medical morning. Branch atomoxetine 2021-07- No [id number] 60mg Take 1 [facility] (STRATTERA) 2-12 02-20 capsule by i ty of 60 mg 00:00: 00:00 mouth in [place] capsule 00 :00 the Medical morning Branch for 90 days. naltrexone 2021-07- No [id number] 50mg Take 1 Un [place] 50 mg 2-12 02-20 tablet by ity of tablet 00:00: 00:00 mouth in [place] 00 :00 the Medical morning. Branch atomoxetine 2021-07- No [id number] 60mg Take 1 [facility] (STRATTERA) 2-12 02-20 capsule by i ty of 60 mg 00:00: 00:00 mouth in [place] capsule 00 :00 the Medical morning Branch for 90 days. naltrexone 2021-2022- No [id number] 50mg Take 1 Un [place] 50 mg 2-12 02-20 tablet by ity of tablet 00:00: 00:00 mouth in [place] 00 :00 the Medical morning. Branch atomoxetine 2021-07- No [id number] 60mg Take 1 [facility] (STRATTERA) 08-14 capsule by i ty of 60 mg 00:00: 00:00 mouth in [place] capsule 00 :00 the Medical morning Branch for 90 days. naltrexone 2021-07- No [id number] 50mg Take 1 Un [place] 50 mg 08-14 tablet by ity of tablet 00:00: 00:00 mouth in [place] 00 :00 the Medical morning. Branch hydrOXYzine 2021-07- No [id number] 25mg Take 1 [facility] 25 mg 2-06 02- tablet by ity of tablet 00:00: 00:00 mouth [place] 00 :00 every 6 Medical (six) Branch hours as needed for Anxiety. hydrOXYzine 2021-07- No [id number] 25mg Take 1 [facility] 25 mg -06 02- tablet by ity of tablet 00:00: 00:00 mouth [place] 00 :00 every 6 Medical (six) Branch hours as needed for Anxiety. hydrOXYzine 2021-07- No [id number] 25mg Take 1 [facility] 25 mg 2-06 02- tablet by ity of tablet 00:00: 00:00 mouth [place] 00 :00 every 6 Medical (six) Branch hours as needed for Anxiety. hydrOXYzine 2021-07- No [id number] 25mg Take 1 [facility] 25 mg 2-06 02- tablet by ity of tablet 00:00: 00:00 mouth [place] 00 :00 every 6 Medical (six) Branch hours as needed for Anxiety. hydrOXYzine 2021-07- No [id number] 25mg Take 1 [facility] 25 mg 2-06 02-23 tablet by ity of tablet 00:00: 00:00 mouth [place] 00 :00 every 6 Medical (six) Branch hours as needed for Anxiety. hydrOXYzine 2021-07- No [id number] 25mg Take 1 [facility] 25 mg 2-06 02-23 tablet by ity of tablet 00:00: 00:00 mouth [place] 00 :00 every 6 Medical (six) Branch hours as needed for Anxiety. hydrOXYzine 2021-07- No [id number] 25mg Take 1 [facility] 25 mg 2-12 -23 tablet by ity of tablet 00:00: 00:00 mouth [place] 00 :00 every 6 Medical (six) Branch hours as needed for Anxiety. lamoTRIgine 2021-07- No [id number] 25mg Take 1 [facility] 25 mg 2-12 -10 tablet by ity of tablet 00:00: 00:00 mouth in [place] 00 :00 the Medical morning. [place] lamoTRIgine 2021-07- No [id number] 25mg Take 1 [facility] 25 mg 2-12 -10 tablet by ity of tablet 00:00: 00:00 mouth in [place] 00 :00 the Medical morning. [place] lamoTRIgine 2021-07- No [id number] 25mg Take 1 [facility] 25 mg 2-12 -10 tablet by ity of tablet 00:00: 00:00 mouth in [place] 00 :00 the Medical morning. [place] lamoTRIgine 2021-07- No [id number] 25mg Take 1 [facility] 25 mg 2-12 -10 tablet by ity of tablet 00:00: 00:00 mouth in [place] 00 :00 the Medical morning. [place] lamoTRIgine 2021-07- No [id number] 25mg Take 1 [facility] 25 mg 2-12 -10 tablet by ity of tablet 00:00: 00:00 mouth in [place] 00 :00 the Medical morning. [place] hydrOXYzine 2021-07- No 25mg 25 mg, [facility] vers (ATARAX) 1-30 11-30 Oral, ity of tablet 25 05:00: 05:14 ONCE, 1 [place] mg 00 :[place] dose, On Medical e Branch 05/31/22 at 2300, [place] hydrOXYzine 2021-07 Yes [id number] 25mg Take 1 [facility] 25 mg 1-29 tablet by ity of tablet 00:00: mouth [place] 00 every 6 Medical (six) Branch hours as needed for Anxiety. hydrOXYzine 2021-07- No [id number] 25mg Take 1 [facility] 25 mg 1-29 12-12 tablet by ity of tablet 00:00: 00:00 mouth [place] 00 :00 every 6 Medical (six) Branch hours as needed for Anxiety. hydrOXYzine 2021-07- No [id number] 25mg Take 1 [facility] 25 mg 1-29 12-12 tablet by ity of tablet 00:00: 00:00 mouth [place] 00 :00 every 6 Medical (six) Branch hours as needed for Anxiety. hydrOXYzine 2021-07- No [id number] 25mg Take 1 [facility] 25 mg 1-29 12-12 tablet by ity of tablet 00:00: 00:00 mouth [place] 00 :00 every 6 Medical (six) Branch hours as needed for Anxiety. hydrOXYzine 2021-07- No [id number] 25mg Take 1 [facility] 25 mg 1-29 12-12 tablet by ity of tablet 00:00: 00:00 mouth [place] 00 :00 every 6 Medical (six) Branch hours as needed for Anxiety. hydrOXYzine 2021-07- No [id number] 25mg Take 1 [facility] 25 mg 1-29 12-12 tablet by ity of tablet 00:00: 00:00 mouth [place] 00 :00 every 6 Medical (six) Branch hours as needed for Anxiety. ARIPiprazol 2021-07- No [id number] 300mg [facility] e (ABILIFY 1-17 11-17 ity of [facility]) 17:00: 16:17 [place] injection 00 :00 Medical SSRR 300 mg Branch ARIPiprazol 2021-07- No [id number] 300mg [facility] e (ABILIFY 1-17 11-17 ity of [facility]) 17:00: 16:17 [place] injection 00 :00 Medical SSRR 300 mg Branch ARIPiprazol 2021-072- No [id number] 300mg [facility] e (ABILIFY 1-17 11-17 ity of [facility]) 17:00: 16:17 [place] injection 00 :00 Medical SSRR 300 mg Branch ARIPiprazol 2021-07- No [id number] 300mg [facility] e (ABILIFY 1-17 11-17 ity of [facility]) 17:00: 16:17 [place] injection 00 :00 Medical SSRR 300 mg Branch ARIPiprazol 2021-07- No [id number] 300mg [facility] e (ABILIFY 1-17 11-17 ity of [facility]) 17:00: 16:17 [place] injection 00 :00 Medical SSRR 300 mg Branch ABILIFY 2021-07 Yes Univers MAINTENA 1-15 ity of 300 mg sers 00:00: [place] [facility] 2021-07 Yes [facility] MA[facility] 1-15 ity of 300 mg sers 00:00: [place] [facility] 2021-07 Yes Univers MA[facility] 1-15 ity of 300 mg sers 00:00: [place] [facility] 2021-07 Yes Univers MA[facility]TE[facility] 1-15 ity of 300 mg sers 00:00: [place] [facility] 2021-07 Yes Univers MA[facility]TE[facility] 1-15 ity of 300 mg sers 00:00: [place] [facility] 2021-07 Yes Univers [facility] 1-15 ity of 300 mg sers 00:00: [place] [facility] 2021-07 Yes Univers MA[facility] 1-15 ity of 300 mg sers 00:00: [place] [facility] 2021-07 Yes Univers MA[facility] 1-15 ity of 300 mg sers 00:00: [place] [facility] 2021-07 Yes Univers MA[facility] 1-15 ity of 300 mg sers 00:00: [place] [facility] 2021-07- No Univers MA[facility] 1-15 -10 ity of 300 mg sers 00:00: 00:00 [place] 00 :00 Medical Branch ABILIY 2021-07- No Univers MA[facility]TENA 1-15 -10 ity of 300 mg sers 00:00: 00:00 [place] 00 :00 Medical Branch ABILIFY 2021-07- No [facility] MAINTENA 1-15 -10 ity of 300 mg sers 00:00: 00:00 [place] 00 :00 Medical Branch ABILIY 2021-07- No [facility] MAINTENA 1-15 -10 ity of 300 mg sers 00:00: 00:00 [place] 00 :00 Medical Branch ABILIFY 2021-07- No [facility] MAINTENA 1-15 -10 ity of 300 mg sers 00:00: 00:00 [place] 00 :00 Medical Branch ABILIFY 2021-07- No [facility] MAINTENA 1-15 -10 ity of 300 mg sers 00:00: 00:00 [place] 00 :00 Medical Branch atomoxetine 2021-07 Yes [id number] 40mg Take 1 [facility] 40 mg 0-31 capsule by ity of capsule 00:00: mouth in [place] 00 the Medical morning. Branch lamoTRIgine 2021-07 Yes [id number] 25mg Take 1 [facility] 25 mg 0-31 tablet by ity of tablet 00:00: mouth in [place] 00 the Medical morning. Branch atomoxetine 2021-07 Yes [id number] 40mg Take 1 [facility] 40 mg 0-31 capsule by ity of capsule 00:00: mouth in [place] 00 the Medical morning. Branch lamoTRIgine 2021-07 Yes [id number] 25mg Take 1 [facility] 25 mg 0-31 tablet by ity of tablet 00:00: mouth in [place] 00 the Medical morning. Branch atomoxetine 2021-07 Yes [id number] 40mg Take 1 [facility] 40 mg 0-31 capsule by ity of capsule 00:00: mouth in [place] 00 the Medical morning. Branch lamoTRIgine 2021-07 Yes [id number] 25mg Take 1 [facility] 25 mg 0-31 tablet by ity of tablet 00:00: mouth in [place] the Medical morning. Branch atomoxetine 2021-07 Yes [id number] 40mg Take 1 [facility] 40 mg 0-31 capsule by ity of capsule 00:00: mouth in [place] the Medical morning. Branch lamoTRIgine 2021-07 Yes [id number] 25mg Take 1 [facility] 25 mg 0-31 tablet by ity of tablet 00:00: mouth in [place] the Medical morning. Branch atomoxetine 2021-07 Yes [id number] 40mg Take 1 [facility] 40 mg 0-31 capsule by ity of capsule 00:00: mouth in [place] the Medical morning. Branch lamoTRIgine 2021-07 Yes [id number] 25mg Take 1 [facility] 25 mg 0-31 tablet by ity of tablet 00:00: mouth in [place] 00 the Medical morning. Branch atomoxetine 2021-07 Yes [id number] 40mg Take 1 [facility] 40 mg 0-31 capsule by ity of capsule 00:00: mouth in [place] 00 the Medical morning. Branch lamoTRIgine 2021-07 Yes [id number] 25mg Take 1 [facility] 25 mg 0-31 tablet by ity of tablet 00:00: mouth in [place] 00 the Medical morning. Branch atomoxetine 2021- Yes [id number] 40mg Take 1 [facility] 40 mg 0-31 capsule by ity of capsule 00:00: mouth in [place] 00 the Medical morning. Branch lamoTRIgine 2021-07 Yes [id number] 25mg Take 1 [facility] 25 mg 0-31 tablet by ity of tablet 00:00: mouth in [place] 00 the Medical morning. Branch atomoxetine 2021-07 Yes [id number] 40mg Take 1 [facility] 40 mg 0-31 capsule by ity of capsule 00:00: mouth in [place] 00 the Medical morning. Branch lamoTRIgine 2021-07 Yes [id number] 25mg Take 1 [facility] 25 mg 0-31 tablet by ity of tablet 00:00: mouth in [place] 00 the Medical morning. Branch atomoxetine 2021-07 Yes [id number] 40mg Take 1 [facility] 40 mg 0-31 capsule by ity of capsule 00:00: mouth in [place] 00 the Medical morning. Branch lamoTRIgine 2021-07 Yes [id number] 25mg Take 1 [facility] 25 mg 0-31 tablet by ity of tablet 00:00: mouth in [place] 00 the Medical morning. Branch naltrexone 2021-07- No [id number] 50mg Take 1 [facility] 50 mg 0-31 01-30 tablet by ity of tablet 00:00: 05:59 mouth in [place] 00 :00 the [facility] morning [place] for 90 days. naltrexone 2021-07- No [id number] 50mg Take 1 [facility] 50 mg 0-31 01-30 tablet by ity of tablet 00:00: 05:59 mouth in [place] 00 :00 the [facility] for 90 days. naltrexone 2021-07- No [id number] 50mg Take 1 [facility] 50 mg 0-31 01-30 tablet by ity of tablet 00:00: 05:59 mouth in [place] 00 :00 the [facility] for 90 days. naltrexone 2021-07- No [id number] 50mg Take 1 [facility] 50 mg 0-31 01-30 tablet by ity of tablet 00:00: 05:59 mouth in [place] 00 :00 the [facility] for 90 days. naltrexone 2021-07- No [id number] 50mg Take 1 [facility] 50 mg 0-31 01-30 tablet by ity of tablet 00:00: 05:59 mouth in [place] 00 :00 the [facility] for 90 days. naltrexone 2021-07- No [id number] 50mg Take 1 [facility] 50 mg 0-31 01-30 tablet by ity of tablet 00:00: 05:59 mouth in [place] 00 :00 the Medical morning Branch for 90 days. naltrexone 2021-07- No [id number] 50mg Take 1 [facility] 50 mg 0-31 01-30 tablet by ity of tablet 00:00: 05:59 mouth in [place] 00 :00 the Medical morning Branch for 90 days. naltrexone 2021-07- No [id number] 50mg Take 1 [facility] 50 mg 0-31 01-30 tablet by ity of tablet 00:00: 05:59 mouth in [place] 00 :00 the Medical morning Branch for 90 days. naltrexone 2021-07- No [id number] 50mg Take 1 [facility] 50 mg 0-31 01-30 tablet by ity of tablet 00:00: 05:59 mouth in [place] 00 :00 the Medical morning Branch for 90 days. naltrexone 2021-07- No [id number] 50mg Take 1 [facility] 50 mg 0-31 12-12 tablet by ity of tablet 00:00: 00:00 mouth in [place] 00 :00 the Medical morning Branch for 90 days. atomoxetine 2021-07- No [id number] 40mg Take 1 [facility] 40 mg 0-31 12-12 capsule by ity of capsule 00:00: 00:00 mouth in [place] 00 :00 the Medical morning. Branch lamoTRIgine 2021-07- No [id number] 25mg Take 1 [facility] 25 mg 0-31 12-12 tablet by ity of tablet 00:00: 00:00 mouth in [place] 00 :00 the Medical morning. Branch naltrexone 2021-07- No [id number] 50mg Take 1 [facility] 50 mg 0-31 12-12 tablet by ity of tablet 00:00: 00:00 mouth in [place] 00 :00 the Medical morning Branch for 90 days. atomoxetine 2021-07- No [id number] 40mg Take 1 [facility] 40 mg 0-31 12-12 capsule by ity of capsule 00:00: 00:00 mouth in [place] 00 :00 the Medical morning. Branch lamoTRIgine 2021-07- No [id number] 25mg Take 1 [facility] 25 mg 0-31 12-12 tablet by ity of tablet 00:00: 00:00 mouth in [place] 00 :00 the Medical morning. Branch naltrexone 2021-07- No [id number] 50mg Take 1 [facility] 50 mg 0-31 12-12 tablet by ity of tablet 00:00: 00:00 mouth in [place] 00 :00 the Medical morning Branch for 90 days. atomoxetine 2021-07- No [id number] 40mg Take 1 [facility] 40 mg 0-31 12-12 capsule by ity of capsule 00:00: 00:00 mouth in [place] 00 :00 the Medical morning. Branch lamoTRIgine 2021-07- No [id number] 25mg Take 1 [facility] 25 mg 0-31 12-12 tablet by ity of tablet 00:00: 00:00 mouth in [place] 00 :00 the Medical morning. Branch naltrexone 2021-07- No [id number] 50mg Take 1 [facility] 50 mg 0-31 12-12 tablet by ity of tablet 00:00: 00:00 mouth in [place] 00 :00 the Medical morning Branch for 90 days. atomoxetine 2021-07- No [id number] 40mg Take 1 [facility] 40 mg 0-31 12-12 capsule by ity of capsule 00:00: 00:00 mouth in [place] 00 :00 the Medical morning. Branch lamoTRIgine 2021-07- No [id number] 25mg Take 1 [facility] 25 mg 0-31 12-12 tablet by ity of tablet 00:00: 00:00 mouth in [place] 00 :00 the Medical morning. Branch naltrexone 2021-07- No [id number] 50mg Take 1 [facility] 50 mg 0-31 12-12 tablet by ity of tablet 00:00: 00:00 mouth in [place] 00 :00 the Medical morning Branch for 90 days. atomoxetine 2021-07- No [id number] 40mg Take 1 [facility] 40 mg 0-31 12-12 capsule by ity of capsule 00:00: 00:00 mouth in [place] 00 :00 the Medical morning. Branch lamoTRIgine 2021-07- No [id number] 25mg Take 1 [facility] 25 mg 0-31 12-12 tablet by ity of tablet 00:00: 00:00 mouth in [place] 00 :00 the Medical morning. Branch ARIPiprazol 2021-07- No [id number] 300mg Univers e (ABILIFY 0-20 10-20 ity of MAINTENA) 15:15: 15:46 [place] injection 00 :00 Medical SSRR 300 mg Branch ARIPiprazol 2021-07- No [id number] 300mg Univers e (ABILIFY 0-20 10-20 ity of MAINTENA) 15:15: 15:46 [place] injection 00 :00 Medical SSRR 300 mg Branch ARIPiprazol 2021-07- No [id number] 300mg Univers e (ABILIFY 0-20 10-20 ity of MAINTENA) 15:15: 15:46 [place] injection 00 :00 Medical SSRR 300 mg Branch ARIPiprazol 2021-07- No [id number] 300mg Univers e (ABILIFY 0-20 10-20 ity of MAINTENA) 15:15: 15:46 [place] injection 00 :00 Medical SSRR 300 mg Branch ARIPiprazol 2021-07- No [id number] 300mg [facility] e (ABILIFY 0-20 10-20 ity of MAINTENA) 15:15: 15:46 [place] injection 00 :00 Medical SSRR 300 mg Branch ARIPiprazol 2021-07- No [id number] 300mg [facility] e (ABILIFY 0-20 10-20 ity of MAINTENA) 15:15: 15:46 [place] injection 00 :00 Medical SSRR 300 mg Branch ARIPiprazol 2021-07- No [id number] 300mg [facility] e (ABILIFY 0-19 10-20 ity of MAINTENA) 15:45: 03:44 [place] injection 00 :00 Medical SSRR 300 mg Branch lamoTRIgine 2021-07 Yes 25mg Take 1 Univ ers 25 mg 0-18 tablet by ity of tablet 00:00: mouth in [place] 00 the Medical morning. Branch lamoTRIgine 2021-07 Yes 25mg Take 1 Univ ers 25 mg 0-18 tablet by ity of tablet 00:00: mouth in [place] 00 the Medical morning. Branch lamoTRIgine 2021-07 Yes 25mg Take 1 Univ ers 25 mg 0-18 tablet by ity of tablet 00:00: mouth in [place] 00 the Medical morning. Branch lamoTRIgine 2022-1 Yes 25mg Take 1 Univ ers 25 mg 0-18 tablet by ity of tablet 00:00: mouth in [place] 00 the Medical morning. Branch lamoTRIgine 2-1 Yes 25mg Take 1 Univ ers 25 mg 0-18 tablet by ity of tablet 00:00: mouth in [place] 00 the Medical morning. Branch lamoTRIgine 2-1 Yes 25mg Take 1 Univ ers 25 mg 0-18 tablet by ity of tablet 00:00: mouth in [place] 00 the Medical morning. Branch lamoTRIgine 2-1 Yes 25mg Take 1 Univ ers 25 mg 0-18 tablet by ity of tablet 00:00: mouth in [place] 00 the Medical morning. Branch lamoTRIgine 2-1 Yes 25mg Take 1 Univ ers 25 mg 0-18 tablet by ity of tablet 00:00: mouth in [place] 00 the Medical morning. Branch lamoTRIgine 2-1 Yes 25mg Take 1 Univ ers 25 mg 0-18 tablet by ity of tablet 00:00: mouth in [place] 00 the Medical morning. Branch lamoTRIgine 2-1 Yes 25mg Take 1 Univ ers 25 mg 0-18 tablet by ity of tablet 00:00: mouth in [place] 00 the Medical morning. Branch lamoTRIgine 2-1 Yes 25mg Take 1 Univ ers 25 mg 0-18 tablet by ity of tablet 00:00: mouth in [place] 00 the Medical morning. Branch lamoTRIgine 2-1 Yes 25mg Take 1 Univ ers 25 mg 0-18 tablet by ity of tablet 00:00: mouth in [place] 00 the Medical morning. Branch lamoTRIgine 2022-1 2022- No 25mg Take 1 Uni vers 25 mg 0-18 10-31 tablet by ity of tablet 00:00: 00:00 mouth in [place] 00 :00 the Medical morning. Branch lamoTRIgine 2022-1 2022- No 25mg Take 1 [facility] vers 25 mg 0-18 10-31 tablet by ity of tablet 00:00: 00:00 mouth in [place] 00 :00 the Medical morning. Branch lamoTRIgine 2022-1 2022- No 25mg Take 1 [facility] vers 25 mg 0-18 10-31 tablet by ity of tablet 00:00: 00:00 mouth in [place] 00 :00 the Medical morning. Branch lamoTRIgine 2021-07- No 25mg Take 1 [facility] vers 25 mg 0-18 10-31 tablet by ity of tablet 00:00: 00:00 mouth in [place] 00 :00 the Medical morning. Branch atomoxetine 2021-07 Yes [id number] 40mg Take 1 [facility] 40 mg 0-13 capsule by ity of capsule 00:00: mouth in [place] 00 the Medical morning. Branch atomoxetine 2021-07 Yes [id number] 40mg Take 1 [facility] 40 mg 0-13 capsule by ity of capsule 00:00: mouth in [place] 00 the Medical morning. Branch atomoxetine 2021-07 Yes [id number] 40mg Take 1 [facility] 40 mg 0-13 capsule by ity of capsule 00:00: mouth in [place] 00 the Medical morning. Branch atomoxetine 2021-07 Yes [id number] 40mg Take 1 [facility] 40 mg 0-13 capsule by ity of capsule 00:00: mouth in [place] 00 the Medical morning. Branch atomoxetine 2021-07 Yes [id number] 40mg Take 1 [facility] 40 mg 0-13 capsule by ity of capsule 00:00: mouth in [place] 00 the Medical morning. Branch atomoxetine 2021-07 Yes [id number] 40mg Take 1 [facility] 40 mg 0-13 capsule by ity of capsule 00:00: mouth in [place] 00 the Medical morning. Branch atomoxetine 2021-07 Yes [id number] 40mg Take 1 [facility] 40 mg 0-13 capsule by ity of capsule 00:00: mouth in [place] 00 the Medical morning. Branch atomoxetine 2021-07 Yes [id number] 40mg Take 1 [facility] 40 mg 0-13 capsule by ity of capsule 00:00: mouth in [place] the Medical morning. Branch atomoxetine 2021-07 Yes [id number] 40mg Take 1 [facility] 40 mg 0-13 capsule by ity of capsule 00:00: mouth in [place] 00 the Medical morning. Branch atomoxetine 2021- Yes [id number] 40mg Take 1 [facility] 40 mg 0-13 capsule by ity of capsule 00:00: mouth in [place] 00 the Medical morning. Branch atomoxetine 2021- Yes [id number] 40mg Take 1 [facility] 40 mg 0-13 capsule by ity of capsule 00:00: mouth in [place] 00 the Medical morning. Branch atomoxetine 2021- Yes [id number] 40mg Take 1 [facility] 40 mg 0-13 capsule by ity of capsule 00:00: mouth in [place] 00 the Medical morning. Branch atomoxetine 2021-07 Yes [id number] 40mg Take 1 [facility] 40 mg 0-13 capsule by ity of capsule 00:00: mouth in [place] 00 the Medical morning. Branch atomoxetine 2021-07 Yes [id number] 40mg Take 1 [facility] 40 mg 0-13 capsule by ity of capsule 00:00: mouth in [place] 00 the Medical morning. Branch atomoxetine 2021-07 Yes [id number] 40mg Take 1 [facility] 40 mg 0-13 capsule by ity of capsule 00:00: mouth in [place] 00 the Medical morning. Branch atomoxetine 2021-07 Yes [id number] 40mg Take 1 [facility] 40 mg 0-13 capsule by ity of capsule 00:00: mouth in [place] 00 the Medical morning. Branch atomoxetine 2021-07 Yes [id number] 40mg Take 1 [facility] 40 mg 0-13 capsule by ity of capsule 00:00: mouth in [place] 00 the Medical morning. Branch atomoxetine 2021-07 Yes [id number] 40mg Take 1 [facility] 40 mg 0-13 capsule by ity of capsule 00:00: mouth in [place] 00 the Medical morning. Branch atomoxetine 2021-07- No [id number] 40mg Take 1 [facility] 40 mg 0-13 10-31 capsule by ity of capsule 00:00: 00:00 mouth in [place] 00 :00 the Medical morning. Branch atomoxetine 2021-07- No [id number] 40mg Take 1 [facility] 40 mg 0-13 10-31 capsule by ity of capsule 00:00: 00:00 mouth in [place] 00 :00 the Medical morning. Branch atomoxetine 2021-07- No [id number] 40mg Take 1 [facility] 40 mg 0-13 10-31 capsule by ity of capsule 00:00: 00:00 mouth in [place] 00 :00 the Medical morning. Branch atomoxetine 2021-07- No [id number] 40mg Take 1 [facility] 40 mg 0-13 10-31 capsule by ity of capsule 00:00: 00:00 mouth in [place] 00 :00 the Medical morning. Branch NaCl 0.9% 2021-07 No 1000mL at 999 Uni vers (NS) bolus 0-09 10-10 mL/hr, ity of infusion 23:45: 03:09 1,000 mL, [place] as 1,000 mL 00 :00 IV Medical Infusion, Michael ONCE, 1 dose, On 04/10/22 at 1845, ARLEN atomoxetine 2021-1 Yes 40mg Take 1 Univ ers 40 mg 0-07 capsule by ity of capsule 00:00: mouth in [place] 00 the Medical morning. Branch lamoTRIgine 2-1 Yes 25mg Take 1 Univ ers 25 mg 0-07 tablet by ity of tablet 00:00: mouth in [place] 00 the Medical morning. Branch atomoxetine 2-1 Yes 40mg Take 1 Univ ers 40 mg 0-07 capsule by ity of capsule 00:00: mouth in [place] 00 the Medical morning. Branch lamoTRIgine 2-1 Yes 25mg Take 1 Univ ers 25 mg 0-07 tablet by ity of tablet 00:00: mouth in [place] 00 the Medical morning. Branch atomoxetine 2-1 Yes 40mg Take 1 Univ ers 40 mg 0-07 capsule by ity of capsule 00:00: mouth in [place] 00 the Medical morning. Branch lamoTRIgine 2-1 Yes 25mg Take 1 Univ ers 25 mg 0-07 tablet by ity of tablet 00:00: mouth in [place] 00 the Medical morning. Branch atomoxetine 2-1 Yes 40mg Take 1 Univ ers 40 mg 0-07 capsule by ity of capsule 00:00: mouth in [place] 00 the Medical morning. Branch lamoTRIgine 2-1 Yes 25mg Take 1 Univ ers 25 mg 0-07 tablet by ity of tablet 00:00: mouth in [place] 00 the Medical morning. Branch lamoTRIgine 2-1 Yes 25mg Take 1 Univ ers 25 mg 0-07 tablet by ity of tablet 00:00: mouth in [place] 00 the Medical morning. Branch lamoTRIgine 2-1 Yes 25mg Take 1 Univ ers 25 mg 0-07 tablet by ity of tablet 00:00: mouth in [place] 00 the Medical morning. Branch lamoTRIgine 2022-1 Yes 25mg Take 1 Univ ers 25 mg 0-07 tablet by ity of tablet 00:00: mouth in [place] 00 the Medical morning. Branch lamoTRIgine 2022-1 Yes 25mg Take 1 Univ ers 25 mg 0-07 tablet by ity of tablet 00:00: mouth in [place] 00 the Medical morning. Branch lamoTRIgine 2022-1 Yes 25mg Take 1 Univ ers 25 mg 0-07 tablet by ity of tablet 00:00: mouth in [place] 00 the Medical morning. Branch lamoTRIgine 2021-07 Yes 25mg Take 1 Univ ers 25 mg 0-07 tablet by ity of tablet 00:00: mouth in [place] 00 the Medical morning. Branch polyethylen 2021-07- No [id number] 17g Take 1 Univers e glycol 0-07 11-07 Packet by ity o f 3350 17 00:00: 05:59 mouth in [place] gram powder 00 :00 the [facility] morning [place] for 30 days. polyethylen 2021-07- No [id number] 17g Take 1 Univers e glycol 0-07 11-07 Packet by ity o f 3350 17 00:00: 05:59 mouth in [place] gram powder 00 :00 the [facility] morning [place] for 30 days. polyethylen 2021-07- No [id number] 17g Take 1 Univers e glycol 0-07 11-07 Packet by ity o f 3350 17 00:00: 05:59 mouth in [place] gram powder 00 :00 the [facility] morning [place] for 30 days. polyethylen 2021-07- No [id number] 17g Take 1 Univers e glycol 0-07 11-07 Packet by ity o f 3350 17 00:00: 05:59 mouth in [place] gram powder 00 :00 the [facility] morning [place] for 30 days. polyethylen 2021-07- No [id number] 17g Take 1 Univers e glycol 0-07 11-07 Packet by ity o f 3350 17 00:00: 05:59 mouth in [place] gram powder 00 :00 the [facility] morning [place] for 30 days. polyethylen 2021-07- No [id number] 17g Take 1 [facility] e glycol 0-07 11-07 Packet by ity o f 3350 17 00:00: 05:59 mouth in [place] gram powder 00 :00 the [facility] morning [place] for 30 days. polyethylen 2021-07- No [id number] 17g Take 1 [facility] e glycol 0-07 11-07 Packet by ity o f 3350 17 00:00: 05:59 mouth in [place] gram powder 00 :00 the [facility] morning [place] for 30 days. polyethylen 2021-07- No [id number] 17g Take 1 [facility] e glycol 0-07 11-07 Packet by ity o f 3350 17 00:00: 05:59 mouth in [place] gram powder 00 :00 the Medical morning Branch for 30 days. polyethylen 2021-07- No [id number] 17g Take 1 [facility] e glycol 0-07 11-07 Packet by ity o f 3350 17 00:00: 05:59 mouth in [place] gram powder 00 :00 the Medical morning Branch for 30 days. polyethylen 2021-07- No [id number] 17g Take 1 [facility] e glycol 0-07 11-07 Packet by ity o f 3350 17 00:00: 05:59 mouth in [place] gram powder 00 :00 the Medical morning Branch for 30 days. polyethylen 2021-07- No [id number] 17g Take 1 [facility] e glycol 0-07 11-07 Packet by ity o f 3350 17 00:00: 05:59 mouth in [place] gram powder 00 :00 the Medical morning Branch for 30 days. polyethylen 2021-07- No [id number] 17g Take 1 [facility] e glycol 0-07 11-07 Packet by ity o f 3350 17 00:00: 05:59 mouth in [place] gram powder 00 :00 the Medical morning Branch for 30 days. polyethylen 2021-07- No [id number] 17g Take 1 [facility] e glycol 0-07 11-07 Packet by ity o f 3350 17 00:00: 05:59 mouth in [place] gram powder 00 :00 the Medical morning Branch for 30 days. polyethylen 2021-07- No [id number] 17g Take 1 [facility] e glycol 0-07 11-07 Packet by ity o f 3350 17 00:00: 05:59 mouth in [place] gram powder 00 :00 the Medical morning Branch for 30 days. polyethylen 2021-07- No [id number] 17g Take 1 [facility] e glycol 0-07 11-07 Packet by ity o f 3350 17 00:00: 05:59 mouth in [place] gram powder 00 :00 the Medical morning Branch for 30 days. polyethylen 2021-07- No [id number] 17g Take 1 [facility] e glycol 0-07 11-07 Packet by ity o f 3350 17 00:00: 05:59 mouth in [place] gram powder 00 :00 the Medical morning Branch for 30 days. polyethylen 2021-07- No [id number] 17g Take 1 [facility] e glycol 0-07 11-07 Packet by ity o f 3350 17 00:00: 05:59 mouth in [place] gram powder 00 :00 the Medical morning Branch for 30 days. polyethylen 2021-07- No [id number] 17g Take 1 [facility] e glycol 0-07 11-07 Packet by ity o f 3350 17 00:00: 05:59 mouth in [place] gram powder 00 :00 the Medical morning Branch for 30 days. polyethylen 2021-07- No [id number] 17g Take 1 [facility] e glycol 0-07 11-07 Packet by ity o f 3350 17 00:00: 05:59 mouth in [place] gram powder 00 :00 the Medical morning Branch for 30 days. polyethylen 2021-07- No [id number] 17g Take 1 [facility] e glycol 0-07 11-07 Packet by ity o f 3350 17 00:00: 05:59 mouth in [place] gram powder 00 :00 the Medical morning Branch for 30 days. polyethylen 2021-07- No [id number] 17g Take 1 [facility] e glycol 0-07 11-07 Packet by ity o f 3350 17 00:00: 05:59 mouth in [place] gram powder 00 :00 the Medical morning Branch for 30 days. polyethylen 2021-07- No [id number] 17g Take 1 [facility] e glycol 0-07 11-07 Packet by ity o f 3350 17 00:00: 05:59 mouth in [place] gram powder 00 :00 the Medical morning Branch for 30 days. polyethylen 2021-07- No [id number] 17g Take 1 [facility] e glycol 0-07 11-07 Packet by ity o f 3350 17 00:00: 05:59 mouth in [place] gram powder 00 :00 the Medical morning Branch for 30 days. polyethylen 2021-07- No [id number] 17g Take 1 Univers e glycol 0-07 11-07 Packet by ity o f 3350 17 00:00: 05:59 mouth in [place] gram powder 00 :00 the Medical morning Branch for 30 days. polyethylen 2021-2021- No [id number] 17g Take 1 [facility] e glycol 0-07 11-07 Packet by ity o f 3350 17 00:00: 05:59 mouth in [place] gram powder 00 :00 the Medical morning Branch for 30 days. polyethylen 2021-2021- No [id number] 17g Take 1 [facility] e glycol 0-07 11-07 Packet by ity o f 3350 17 00:00: 05:59 mouth in [place] gram powder 00 :00 the Medical morning Branch for 30 days. lamoTRIgine 2021- 2022- No 25mg Take 1 Uni vers 25 mg 0-07 10-18 tablet by ity of tablet 00:00: 00:00 mouth in [place] 00 :00 the Medical morning. Branch lamoTRIgine 2021-1 2022- No 25mg Take 1 Uni vers 25 mg 0-07 10-18 tablet by ity of tablet 00:00: 00:00 mouth in [place] 00 :00 the Medical morning. Branch lamoTRIgine 2-1 2022- No 25mg Take 1 Uni vers 25 mg 0-07 10-18 tablet by ity of tablet 00:00: 00:00 mouth in [place] 00 :00 the Medical morning. Branch lamoTRIgine 2-1 2022- No 25mg Take 1 Uni vers 25 mg 0-07 10-18 tablet by ity of tablet 00:00: 00:00 mouth in [place] 00 :00 the Medical morning. Branch lamoTRIgine 2-1 2022- No 25mg Take 1 Uni vers 25 mg 0-07 10-18 tablet by ity of tablet 00:00: 00:00 mouth in [place] 00 :00 the Medical morning. Branch lamoTRIgine 2-1 2022- No 25mg Take 1 Uni vers 25 mg 0-07 10-18 tablet by ity of tablet 00:00: 00:00 mouth in [place] 00 :00 the Medical morning. Branch lamoTRIgine 2022-1 2022- No 25mg Take 1 [facility] vers 25 mg 0-07 10-18 tablet by ity of tablet 00:00: 00:00 mouth in [place] 00 :00 the Medical morning. Branch lamoTRIgine 2022-1 2022- No 25mg Take 1 [facility] vers 25 mg 0-07 10-18 tablet by ity of tablet 00:00: 00:00 mouth in [place] 00 :00 the Medical morning. Branch lamoTRIgine 2021-07- No 25mg Take 1 Uni vers 25 mg 0-07 10-18 tablet by ity of tablet 00:00: 00:00 mouth in [place] 00 :00 the Medical morning. Branch lamoTRIgine 2021-07- No 25mg Take 1 [facility] vers 25 mg 0-07 10-18 tablet by ity of tablet 00:00: 00:00 mouth in [place] 00 :00 the Medical morning. Branch lamoTRIgine 2021-07- No 25mg Take 1 Uni vers 25 mg 0-07 10-18 tablet by ity of tablet 00:00: 00:00 mouth in [place] 00 :00 the Medical morning. Branch tamsulosin 2021-07- No [id number] .4mg Take 1 [facility] 0.4 mg 24 0-07 10-15 capsule by ity of hr capsule 00:00: 04:59 mouth in [place] 00 :00 the Medical morning Branch for 7 days. tamsulosin 2021-07- No [id number] .4mg Take 1 [facility] 0.4 mg 24 0-07 10-15 capsule by ity of hr capsule 00:00: 04:59 mouth in [place] 00 :00 the Medical morning Branch for 7 days. tamsulosin 2021-07- No [id number] .4mg Take 1 [facility] 0.4 mg 24 0-07 10-15 capsule by ity of hr capsule 00:00: 04:59 mouth in [place] 00 :00 the Medical morning Branch for 7 days. tamsulosin 2021-07- No [id number] .4mg Take 1 [facility] 0.4 mg 24 0-07 10-15 capsule by ity of hr capsule 00:00: 04:59 mouth in [place] 00 :00 the Medical morning Branch for 7 days. tamsulosin 2021-07- No [id number] .4mg Take 1 [facility] 0.4 mg 24 0-07 10-15 capsule by ity of hr capsule 00:00: 04:59 mouth in [place] 00 :00 the Medical morning Branch for 7 days. tamsulosin 2021-07- No [id number] .4mg Take 1 [facility] 0.4 mg 24 0-07 10-15 capsule by ity of hr capsule 00:00: 04:59 mouth in [place] 00 :00 the Medical morning Branch for 7 days. tamsulosin 2021-07- No [id number] .4mg Take 1 [facility] 0.4 mg 24 0-07 10-15 capsule by ity of hr capsule 00:00: 04:59 mouth in [place] 00 :00 the Medical morning Branch for 7 days. tamsulosin 2021-07- No [id number] .4mg Take 1 [facility] 0.4 mg 24 0-07 10-15 capsule by ity of hr capsule 00:00: 04:59 mouth in [place] 00 :00 the [facility] morning Branch for 7 days. tamsulosin 2021-07 No [id number] .4mg Take 1 [facility] 0.4 mg 24 0-07 10-15 capsule by ity of hr capsule 00:00: 04:59 mouth in [place] 00 :00 the [facility] morning Branch for 7 days. tamsulosin 2021-07- No [id number] .4mg Take 1 [facility] 0.4 mg 24 0-07 10-15 capsule by [facility] hr capsule 00:00: 04:59 mouth in [place] 00 :00 the [facility] morning Branch for 7 days. tamsulosin 2021-07- No [id number] .4mg Take 1 [facility] 0.4 mg 24 0-07 10-15 capsule by [facility] hr capsule 00:00: 04:59 mouth in [place] 00 :00 the [facility] morning Branch for 7 days. tamsulosin 2021-07 No [id number] .4mg Take 1 [facility] 0.4 mg 24 0-07 10-15 capsule by [facility] hr capsule 00:00: 04:59 mouth in [place] 00 :00 the [facility] morning Branch for 7 days. tamsulosin 2021-07 No [id number] .4mg Take 1 [facility] 0.4 mg 24 0-07 10-15 capsule by [facility] of hr capsule 00:00: 04:59 mouth in [place] 00 :00 the Medical morning Branch for 7 days. tamsulosin 2021-07- No [id number] .4mg Take 1 [facility] 0.4 mg 24 0-07 10-15 capsule by [facility] hr capsule 00:00: 04:59 mouth in [place] 00 :00 the Medical morning Branch for 7 days. tamsulosin 2021-07- No [id number] .4mg Take 1 [facility] 0.4 mg 24 0-07 10-15 capsule by [facility] hr capsule 00:00: 04:59 mouth in [place] 00 :00 the Medical morning Branch for 7 days. tamsulosin 2021-07- No [id number] .4mg Take 1 [facility] 0.4 mg 24 0-07 10-15 capsule by [facility] hr capsule 00:00: 04:59 mouth in [place] 00 :00 the [facility] morning Branch for 7 days. tamsulosin 2021-07- No [id number] .4mg Take 1 [facility] 0.4 mg 24 0-07 10-15 capsule by [facility] hr capsule 00:00: 04:59 mouth in [place] 00 :00 the [facility] morning Branch for 7 days. tamsulosin 2021-07- No [id number] .4mg Take 1 [facility] 0.4 mg 24 0-07 10-15 capsule by [facility] hr capsule 00:00: 04:59 mouth in [place] 00 :00 the [facility] morning Branch for 7 days. tamsulosin 2021-07- No [id number] .4mg Take 1 [facility] 0.4 mg 24 0-07 10-15 capsule by [facility] hr capsule 00:00: 04:59 mouth in [place] 00 :00 the [facility] morning Branch for 7 days. tamsulosin 2021-07- No [id number] .4mg Take 1 [facility] 0.4 mg 24 0-07 10-15 capsule by [facility] hr capsule 00:00: 04:59 mouth in [place] 00 :00 the Medical morning Branch for 7 days. tamsulosin 2021-07- No [id number] .4mg Take 1 [facility] 0.4 mg 24 0-07 10-15 capsule by [facility] of hr capsule 00:00: 04:59 mouth in [place] 00 :00 the Medical morning Branch for 7 days. atomoxetine 2021-07- No 40mg Take 1 [facility] vers 40 mg 0-07 10-13 capsule by [facility] of capsule 00:00: 00:00 mouth in [place] 00 :00 the Medical morning. Branch atomoxetine 2- 2022- No 40mg Take 1 [facility] vers 40 mg 0-07 10-13 capsule by [facility] of capsule 00:00: 00:00 mouth in [place] 00 :00 the Medical morning. Branch atomoxetine 2-1 2- No 40mg Take 1 [facility] vers 40 mg 0-07 10-13 capsule by [facility] of capsule 00:00: 00:00 mouth in [place] 00 :00 the Medical morning. Branch atomoxetine 2-1 2- No 40mg Take 1 [facility] vers 40 mg 0-07 10-13 capsule by [facility] of capsule 00:00: 00:00 mouth in [place] 00 :00 the Medical morning. Branch atomoxetine 2-1 2- No 40mg Take 1 [facility] vers 40 mg 0-07 10-13 capsule by [facility] of capsule 00:00: 00:00 mouth in [place] 00 :00 the Medical morning. Branch atomoxetine 2-2- No 40mg Take 1 [facility] vers 40 mg 0-07 10-13 capsule by [facility] of capsule 00:00: 00:00 mouth in [place] 00 :00 the Medical morning. Branch atomoxetine 2-1 2- No 40mg Take 1 [facility] vers 40 mg 0-07 10-13 capsule by [facility] of capsule 00:00: 00:00 mouth in [place] 00 :00 the Medical morning. Branch atomoxetine 2-1 2- No 40mg Take 1 [facility] vers 40 mg 0-07 10-13 capsule by [facility] of capsule 00:00: 00:00 mouth in [place] 00 :00 the Medical morning. Branch atomoxetine 2-1 2- No 40mg Take 1 [facility] vers 40 mg 0-07 10-13 capsule by [facility] of capsule 00:00: 00:00 mouth in [place] 00 :00 the Medical morning. Branch atomoxetine 2-1 2- No 40mg Take 1 [facility] vers 40 mg 0-07 10-13 capsule by [facility] of capsule 00:00: 00:00 mouth in [place] 00 :00 the Medical morning. Branch atomoxetine 2-1 2022- No 40mg Take 1 [facility] vers 40 mg 0-07 10-13 capsule by [facility] of capsule 00:00: 00:00 mouth in [place] 00 :00 the Medical morning. [place] atomoxetine 2021-07- No 40mg Take 1 [facility] vers 40 mg 0-07 10-13 capsule by [facility] of capsule 00:00: 00:00 mouth in [place] 00 :00 the Medical morning. [place] atomoxetine 2021-07- No 40mg Take 1 [facility] vers 40 mg 0-07 10-13 capsule by [facility] of capsule 00:00: 00:00 mouth in [place] 00 :00 the Medical morning. [place] atomoxetine 2021-07- No 40mg Take 1 [facility] vers 40 mg 0-07 10-13 capsule by [facility] of capsule 00:00: 00:00 mouth in [place] 00 :00 the Medical morning. [place] atomoxetine 2021-07- No 40mg Take 1 [facility] vers 40 mg 0-07 10-13 capsule by [facility]y of capsule 00:00: 00:00 mouth in [place] 00 :00 the Medical morning. [place] atomoxetine 2021-2021- No 40mg Take 1 [facility] vers 40 mg 0-07 10-13 capsule by [facility]y of capsule 00:00: 00:00 mouth in [place] 00 :00 the Medical morning. [place] atomoxetine 2021-07- No 40mg Take 1 [facility] vers 40 mg 0-07 10-13 capsule by [facility] of capsule 00:00: 00:00 mouth in [place] 00 :00 the Medical morning. [place] traZODone 2021-07 Yes 50mg 50 mg, [facility] (DESYREL) 0-06 Oral, QHS, ity of tablet 50 02:00: First dose [place] mg 00 on Mon04/06/22 at [place] 2100, Until Discontinu ed, Routine acetaminoph 2021-07 Yes [id number] 1000mg Take 2 [facility] en 500 mg 0-06 tablets by [facility]y of tablet 00:00: mouth [place] 00 every 8 Medical (eight) Branch hours as needed for Pain. traZODone 2021-07 Yes 50mg Take 1 [facility] 50 mg 0-06 tablet by [facility] of tablet 00:00: mouth at [place] 00 bedtime. [facility] Branch methocarbam 2021-07 Yes [id number] 500mg Take 1 [facility] oL 500 mg 0-06 tablet by ity o f tablet 00:00: mouth 4 [place] 00 (four) Medical times Branch daily as needed (muscle spasms). ibuprofen 2021-07 Yes [id number] 600mg Take 1 [facility] 600 mg 0-06 tablet by [facility] of tablet 00:00: mouth [place] 00 every 6 Medical (six) Branch hours as needed for Pain (scale 4-6). acetaminoph 2021-07 Yes [id number] 1000mg Take 2 [facility] en 500 mg 0-06 tablets by [facility]y of tablet 00:00: mouth [place] 00 every 8 Medical (eight) Branch hours as needed for Pain. traZODone 2021-07 Yes 50mg Take 1 [facility] 50 mg 0-06 tablet by [facility] of tablet 00:00: mouth at [place] 00 bedtime. Medical Branch methocarbam 2021-07 Yes [id number] 500mg Take 1 [facility] oL 500 mg 0-06 tablet by ity o f tablet 00:00: mouth 4 [place] 00 (four) Medical times Branch daily as needed (muscle spasms). ibuprofen 2021-07 Yes [id number] 600mg Take 1 [facility] 600 mg 0-06 tablet by [facility] of tablet 00:00: mouth [place] 00 every 6 Medical (six) Branch hours as needed for Pain (scale 4-6). acetaminoph 2021-07 Yes [id number] 1000mg Take 2 [facility] en 500 mg 0-06 tablets by [facility] of tablet 00:00: mouth [place] 00 every 8 Medical (eight) Branch hours as needed for Pain. traZODone 2021-07 Yes 50mg Take 1 [facility] 50 mg 0-06 tablet by [facility] of tablet 00:00: mouth at [place] 00 bedtime. Medical Branch methocarbam 2021-07 Yes [id number] 500mg Take 1 [facility] oL 500 mg 0-06 tablet by [facility]y o f tablet 00:00: mouth 4 [place] 00 (four) Medical times Branch daily as needed (muscle spasms). ibuprofen 2021-07 Yes [id number] 600mg Take 1 [facility] 600 mg 0-06 tablet by [facility] of tablet 00:00: mouth [place] 00 every 6 Medical (six) Branch hours as needed for Pain (scale 4-6). acetaminoph 2021-07 Yes [id number] 1000mg Take 2 [facility] en 500 mg 0-06 tablets by [facility] of tablet 00:00: mouth [place] 00 every 8 Medical (eight) Branch hours as needed for Pain. traZODone 2021-07 Yes 50mg Take 1 [facility] 50 mg 0-06 tablet by [facility] of tablet 00:00: mouth at [place] 00 bedtime. Medical Branch methocarbam 2021-07 Yes [id number] 500mg Take 1 [facility] oL 500 mg 0-06 tablet by [facility]y o f tablet 00:00: mouth 4 [place] 00 (four) Medical times Branch daily as needed (muscle spasms). ibuprofen 2021-07 Yes [id number] 600mg Take 1 [facility] 600 mg 0-06 tablet by [facility] of tablet 00:00: mouth [place] 00 every 6 Medical (six) Branch hours as needed for Pain (scale 4-6). acetaminoph 2021-07 Yes [id number] 1000mg Take 2 [facility] en 500 mg 0-06 tablets by [facility]y of tablet 00:00: mouth [place] 00 every 8 Medical (eight) Branch hours as needed for Pain. traZODone 2021-07 Yes 50mg Take 1 [facility] 50 mg 0-06 tablet by [facility] of tablet 00:00: mouth at [place] 00 bedtime. Medical Branch methocarbam 2021-07 Yes [id number] 500mg Take 1 [facility] oL 500 mg 0-06 tablet by [facility]y o f tablet 00:00: mouth 4 00 (four) Medical times Branch daily as needed (muscle spasms). ibuprofen 2021-07 Yes [id number] 600mg Take 1 [facility] 600 mg 0-06 tablet by [facility] of tablet 00:00: mouth [place] 00 every 6 Medical (six) Branch hours as needed for Pain (scale 4-6). acetaminoph 2021-07 Yes [id number] 1000mg Take 2 [facility] en 500 mg 0-06 tablets by ity of tablet 00:00: mouth [place] 00 every 8 Medical (eight) Branch hours as needed for Pain. traZODone 2021-07 Yes 50mg Take 1 [facility] 50 mg 0-06 tablet by [facility] of tablet 00:00: mouth at [place] 00 bedtime. Medical Branch methocarbam 2021-07 Yes [id number] 500mg Take 1 [facility] oL 500 mg 0-06 tablet by ity o f tablet 00:00: mouth 4 [place] 00 (four) Medical times Branch daily as needed (muscle spasms). ibuprofen 2021-07 Yes [id number] 600mg Take 1 [facility] 600 mg 0-06 tablet by [facility] of tablet 00:00: mouth [place] 00 every 6 Medical (six) Branch hours as needed for Pain (scale 4-6). acetaminoph 2021-07 Yes [id number] 1000mg Take 2 [facility] en 500 mg 0-06 tablets by [facility]y of tablet 00:00: mouth [place] 00 every 8 Medical (eight) Branch hours as needed for Pain. traZODone 2021-07 Yes 50mg Take 1 [facility] 50 mg 0-06 tablet by [facility]y of tablet 00:00: mouth at [place] 00 bedtime. Medical Branch methocarbam 2021-07 Yes [id number] 500mg Take 1 [facility] oL 500 mg 0-06 tablet by ity o f tablet 00:00: mouth (four) Medical times Branch daily as needed (muscle spasms). ibuprofen 2021-07 Yes [id number] 600mg Take 1 [facility] 600 mg 0-06 tablet by [facility] of tablet 00:00: mouth 00 every 6 Medical (six) Branch hours as needed for Pain (scale 4-6). acetaminoph 2021-07 Yes [id number] 1000mg Take 2 [facility] en 500 mg 0-06 tablets by [facility]y of tablet 00:00: mouth 00 every 8 Medical (eight) Branch hours as needed for Pain. traZODone 2021-07 Yes 50mg Take 1 [facility] 50 mg 0-06 tablet by [facility] of tablet 00:00: mouth at 00 bedtime. Medical Branch methocarbam 2021-07 Yes [id number] 500mg Take 1 [facility] oL 500 mg 0-06 tablet by [facility]y o f tablet 00:00: mouth (four) Medical times Branch daily as needed (muscle spasms). ibuprofen 2021-07 Yes [id number] 600mg Take 1 [facility] 600 mg 0-06 tablet by [facility]y of tablet 00:00: mouth [place] 00 every 6 Medical (six) Branch hours as needed for Pain (scale 4-6). acetaminoph 2021-07 Yes [id number] 1000mg Take 2 [facility] en 500 mg 0-06 tablets by ity of tablet 00:00: mouth 00 every 8 Medical (eight) Branch hours as needed for Pain. traZODone 2021-07 Yes 50mg Take 1 [facility] 50 mg 0-06 tablet by [facility]y of tablet 00:00: mouth at [place] 00 bedtime. Medical Branch methocarbam 2021-07 Yes [id number] 500mg Take 1 [facility] oL 500 mg 0-06 tablet by ity o f tablet 00:00: mouth 4 (four) Medical times Branch daily as needed (muscle spasms). ibuprofen 2021-07 Yes [id number] 600mg Take 1 [facility] 600 mg 0-06 tablet by [facility]y of tablet 00:00: mouth [place] 00 every 6 Medical (six) Branch hours as needed for Pain (scale 4-6). acetaminoph 2021-07 Yes [id number] 1000mg Take 2 [facility] en 500 mg 0-06 tablets by ity of tablet 00:00: mouth [place] 00 every 8 Medical (eight) Branch hours as needed for Pain. traZODone 2021-07 Yes 50mg Take 1 [facility] 50 mg 0-06 tablet by [facility]y of tablet 00:00: mouth at [place] 00 bedtime. Medical Branch methocarbam 2021-07 Yes [id number] 500mg Take 1 [facility] oL 500 mg 0-06 tablet by ity o f tablet 00:00: mouth (four) Medical times Branch daily as needed (muscle spasms). ibuprofen 2021-07 Yes [id number] 600mg Take 1 [facility] 600 mg 0-06 tablet by [facility]y of tablet 00:00: mouth 00 every 6 Medical (six) Branch hours as needed for Pain (scale 4-6). acetaminoph 2021-07 Yes [id number] 1000mg Take 2 [facility] en 500 mg 0-06 tablets by ity of tablet 00:00: mouth 00 every 8 Medical (eight) Branch hours as needed for Pain. traZODone 2021-07 Yes 50mg Take 1 [facility] 50 mg 0-06 tablet by [facility]y of tablet 00:00: mouth at [place] 00 bedtime. Medical Branch methocarbam 2021-07 Yes [id number] 500mg Take 1 [facility] oL 500 mg 0-06 tablet by ity o f tablet 00:00: mouth (four) Medical times Branch daily as needed (muscle spasms). ibuprofen 2021-07 Yes [id number] 600mg Take 1 [facility] 600 mg 0-06 tablet by [facility]y of tablet 00:00: mouth [place] 00 every 6 Medical (six) Branch hours as needed for Pain (scale 4-6). acetaminoph 2021-07 Yes [id number] 1000mg Take 2 [facility] en 500 mg 0-06 tablets by ity of tablet 00:00: mouth [place] 00 every 8 Medical (eight) Branch hours as needed for Pain. traZODone 2021-07 Yes 50mg Take 1 [facility] 50 mg 0-06 tablet by ity of tablet 00:00: mouth at [place] 00 bedtime. Medical Branch methocarbam 2021-07 Yes [id number] 500mg Take 1 [facility] oL 500 mg 0-06 tablet by ity o f tablet 00:00: mouth 4 [place] 00 (four) Medical times Branch daily as needed (muscle spasms). ibuprofen 2021-07 Yes [id number] 600mg Take 1 [facility] 600 mg 0-06 tablet by ity of tablet 00:00: mouth [place] 00 every 6 Medical (six) Branch hours as needed for Pain (scale 4-6). acetaminoph 2021-07 Yes [id number] 1000mg Take 2 [facility] en 500 mg 0-06 tablets by ity of tablet 00:00: mouth [place] 00 every 8 Medical (eight) Branch hours as needed for Pain. traZODone 2021-07 Yes 50mg Take 1 [facility] 50 mg 0-06 tablet by [facility]y of tablet 00:00: mouth at [place] 00 bedtime. Medical Branch methocarbam 2021-07 Yes [id number] 500mg Take 1 [facility] oL 500 mg 0-06 tablet by ity o f tablet 00:00: mouth 4 00 (four) Medical times Branch daily as needed (muscle spasms). ibuprofen 2021-07 Yes [id number] 600mg Take 1 [facility] 600 mg 0-06 tablet by ity of tablet 00:00: mouth [place] 00 every 6 Medical (six) Branch hours as needed for Pain (scale 4-6). acetaminoph 2021-07 Yes [id number] 1000mg Take 2 [facility] en 500 mg 0-06 tablets by ity of tablet 00:00: mouth [place] 00 every 8 Medical (eight) Branch hours as needed for Pain. traZODone 2021-07 Yes 50mg Take 1 [facility] 50 mg 0-06 tablet by [facility]y of tablet 00:00: mouth at [place] 00 bedtime. Medical Branch methocarbam 2021-07 Yes [id number] 500mg Take 1 [facility] oL 500 mg 0-06 tablet by ity o f tablet 00:00: mouth 4 00 (four) Medical times Branch daily as needed (muscle spasms). ibuprofen 2021-07 Yes [id number] 600mg Take 1 [facility] 600 mg 0-06 tablet by ity of tablet 00:00: mouth [place] 00 every 6 Medical (six) Branch hours as needed for Pain (scale 4-6). acetaminoph 2021-07 Yes [id number] 1000mg Take 2 [facility] en 500 mg 0-06 tablets by ity of tablet 00:00: mouth [place] 00 every 8 Medical (eight) Branch hours as needed for Pain. traZODone 2021-07 Yes 50mg Take 1 [facility] 50 mg 0-06 tablet by ity of tablet 00:00: mouth at [place] 00 bedtime. Medical Branch methocarbam 2021-07 Yes [id number] 500mg Take 1 [facility] oL 500 mg 0-06 tablet by ity o f tablet 00:00: mouth 4 00 (four) Medical times Branch daily as needed (muscle spasms). ibuprofen 2021-07 Yes [id number] 600mg Take 1 [facility] 600 mg 0-06 tablet by ity of tablet 00:00: mouth [place] 00 every 6 Medical (six) Branch hours as needed for Pain (scale 4-6). acetaminoph 2021-07 Yes [id number] 1000mg Take 2 [facility] en 500 mg 0-06 tablets by ity of tablet 00:00: mouth [place] 00 every 8 Medical (eight) Branch hours as needed for Pain. traZODone 2021-07 Yes 50mg Take 1 [facility] 50 mg 0-06 tablet by [facility]y of tablet 00:00: mouth at [place] 00 bedtime. Medical Branch methocarbam 2021-07 Yes [id number] 500mg Take 1 [facility] oL 500 mg 0-06 tablet by ity o f tablet 00:00: mouth 4 00 (four) Medical times Branch daily as needed (muscle spasms). ibuprofen 2021-07 Yes [id number] 600mg Take 1 [facility] 600 mg 0-06 tablet by [facility]y of tablet 00:00: mouth [place] 00 every 6 Medical (six) Branch hours as needed for Pain (scale 4-6). acetaminoph 2021-07 Yes [id number] 1000mg Take 2 [facility] en 500 mg 0-06 tablets by ity of tablet 00:00: mouth [place] 00 every 8 Medical (eight) Branch hours as needed for Pain. traZODone 2021-07 Yes 50mg Take 1 [facility] 50 mg 0-06 tablet by [facility] of tablet 00:00: mouth at [place] 00 bedtime. Medical Branch methocarbam 2021-07 Yes [id number] 500mg Take 1 [facility] oL 500 mg 0-06 tablet by ity o f tablet 00:00: mouth (four) Medical times Branch daily as needed (muscle spasms). ibuprofen 2021-07 Yes [id number] 600mg Take 1 [facility] 600 mg 0-06 tablet by ity of tablet 00:00: mouth [place] 00 every 6 Medical (six) Branch hours as needed for Pain (scale 4-6). acetaminoph 2021-07 Yes [id number] 1000mg Take 2 [facility] en 500 mg 0-06 tablets by ity of tablet 00:00: mouth 00 every 8 Medical (eight) Branch hours as needed for Pain. traZODone 2021-07 Yes 50mg Take 1 [facility] 50 mg 0-06 tablet by [facility]y of tablet 00:00: mouth at 00 bedtime. Medical Branch methocarbam 2021-07 Yes [id number] 500mg Take 1 [facility] oL 500 mg 0-06 tablet by ity o f tablet 00:00: mouth (four) Medical times Branch daily as needed (muscle spasms). ibuprofen 2021-07 Yes [id number] 600mg Take 1 [facility] 600 mg 0-06 tablet by ity of tablet 00:00: mouth 00 every 6 Medical (six) Branch hours as needed for Pain (scale 4-6). acetaminoph 2021-07 Yes [id number] 1000mg Take 2 [facility] en 500 mg 0-06 tablets by ity of tablet 00:00: mouth 00 every 8 Medical (eight) Branch hours as needed for Pain. traZODone 2021-07 Yes 50mg Take 1 [facility] 50 mg 0-06 tablet by ity of tablet 00:00: mouth at [place] 00 bedtime. Medical Branch methocarbam 2021-07 Yes [id number] 500mg Take 1 [facility] oL 500 mg 0-06 tablet by ity o f tablet 00:00: mouth (four) Medical times Branch daily as needed (muscle spasms). ibuprofen 2021-07 Yes [id number] 600mg Take 1 [facility] 600 mg 0-06 tablet by ity of tablet 00:00: mouth [place] 00 every 6 Medical (six) Branch hours as needed for Pain (scale 4-6). acetaminoph 2021-07 Yes [id number] 1000mg Take 2 [facility] en 500 mg 0-06 tablets by ity of tablet 00:00: mouth [place] 00 every 8 Medical (eight) Branch hours as needed for Pain. traZODone 2021-07 Yes 50mg Take 1 [facility] 50 mg 0-06 tablet by ity of tablet 00:00: mouth at [place] 00 bedtime. Medical Branch methocarbam 2021-07 Yes [id number] 500mg Take 1 [facility] oL 500 mg 0-06 tablet by ity o f tablet 00:00: mouth 4 00 (four) Medical times Branch daily as needed (muscle spasms). ibuprofen 2021-07 Yes [id number] 600mg Take 1 [facility] 600 mg 0-06 tablet by ity of tablet 00:00: mouth [place] 00 every 6 Medical (six) Branch hours as needed for Pain (scale 4-6). acetaminoph 2021-07 Yes [id number] 1000mg Take 2 [facility] en 500 mg 0-06 tablets by ity of tablet 00:00: mouth [place] 00 every 8 Medical (eight) Branch hours as needed for Pain. traZODone 2021-07 Yes 50mg Take 1 [facility] 50 mg 0-06 tablet by [facility] of tablet 00:00: mouth at [place] 00 bedtime. Medical Branch methocarbam 2021-07 Yes [id number] 500mg Take 1 [facility] oL 500 mg 0-06 tablet by ity o f tablet 00:00: mouth 4 [place] 00 (four) Medical times Branch daily as needed (muscle spasms). ibuprofen 2021-07 Yes [id number] 600mg Take 1 [facility] 600 mg 0-06 tablet by ity of tablet 00:00: mouth [place] 00 every 6 Medical (six) Branch hours as needed for Pain (scale 4-6). acetaminoph 2021-07 Yes [id number] 1000mg Take 2 [facility] en 500 mg 0-06 tablets by it[facility] of tablet 00:00: mouth [place] 00 every 8 Medical (eight) Branch hours as needed for Pain. traZODone 2021-07 Yes 50mg Take 1 [facility] 50 mg 0-06 tablet by [facility] of tablet 00:00: mouth at [place] 00 bedtime. Medical Branch methocarbam 2021-07 Yes [id number] 500mg Take 1 [facility] oL 500 mg 0-06 tablet by [facility] o f tablet 00:00: mouth 4 [place] 00 (four) Medical times Branch daily as needed (muscle spasms). ibuprofen 2021-07 Yes [id number] 600mg Take 1 [facility] 600 mg 0-06 tablet by [facility] of tablet 00:00: mouth [place] 00 every 6 Medical (six) Branch hours as needed for Pain (scale 4-6). acetaminoph 2021-07 Yes [id number] 1000mg Take 2 [facility] en 500 mg 0-06 tablets by [facility] of tablet 00:00: mouth [place] 00 every 8 Medical (eight) Branch hours as needed for Pain. traZODone 2021-07 Yes 50mg Take 1 [facility] 50 mg 0-06 tablet by [facility] of tablet 00:00: mouth at [place] 00 bedtime. Medical Branch methocarbam 2021-07 Yes [id number] 500mg Take 1 [facility] oL 500 mg 0-06 tablet by ity o f tablet 00:00: mouth 00 (four) Medical times Branch daily as needed (muscle spasms). ibuprofen 2021-07 Yes [id number] 600mg Take 1 [facility] 600 mg 0-06 tablet by [facility] of tablet 00:00: mouth [place] 00 every 6 Medical (six) Branch hours as needed for Pain (scale 4-6). acetaminoph 2021-07 Yes [id number] 1000mg Take 2 [facility] en 500 mg 0-06 tablets by [facility] of tablet 00:00: mouth [place] 00 every 8 Medical (eight) Branch hours as needed for Pain. traZODone 2021-07 Yes 50mg Take 1 [facility] 50 mg 0-06 tablet by [facility] of tablet 00:00: mouth at [place] 00 bedtime. Medical Branch methocarbam 2021-07 Yes [id number] 500mg Take 1 [facility] oL 500 mg 0-06 tablet by [facility] o f tablet 00:00: mouth 4 00 (four) Medical times Branch daily as needed (muscle spasms). ibuprofen 2021-07 Yes [id number] 600mg Take 1 [facility] 600 mg 0-06 tablet by [facility] of tablet 00:00: mouth [place] 00 every 6 Medical (six) Branch hours as needed for Pain (scale 4-6). acetaminoph 2021-07 Yes [id number] 1000mg Take 2 [facility] en 500 mg 0-06 tablets by [facility] of tablet 00:00: mouth [place] 00 every 8 Medical (eight) Branch hours as needed for Pain. traZODone 2021-07 Yes 50mg Take 1 [facility] 50 mg 0-06 tablet by [facility] of tablet 00:00: mouth at [place] 00 bedtime. Medical Branch methocarbam 2021-07 Yes [id number] 500mg Take 1 [facility] oL 500 mg 0-06 tablet by it[facility] o f tablet 00:00: mouth 4 00 (four) Medical times Branch daily as needed (muscle spasms). ibuprofen 2021-07 Yes [id number] 600mg Take 1 [facility] 600 mg 0-06 tablet by [facility] of tablet 00:00: mouth [place] 00 every 6 Medical (six) Branch hours as needed for Pain (scale 4-6). acetaminoph 2021-07 Yes [id number] 1000mg Take 2 [facility] en 500 mg 0-06 tablets by ity of tablet 00:00: mouth [place] 00 every 8 Medical (eight) Branch hours as needed for Pain. traZODone 2021-07 Yes 50mg Take 1 [facility] 50 mg 0-06 tablet by [facility] of tablet 00:00: mouth at [place] 00 bedtime. Medical Branch methocarbam 2021-07 Yes [id number] 500mg Take 1 [facility] oL 500 mg 0-06 tablet by [facility] o f tablet 00:00: mouth 00 (four) Medical times Branch daily as needed (muscle spasms). ibuprofen 2021-07 Yes [id number] 600mg Take 1 [facility] 600 mg 0-06 tablet by [facility] of tablet 00:00: mouth [place] 00 every 6 Medical (six) Branch hours as needed for Pain (scale 4-6). acetaminoph 2021-07 Yes [id number] 1000mg Take 2 [facility] en 500 mg 0-06 tablets by [facility] of tablet 00:00: mouth [place] 00 every 8 Medical (eight) Branch hours as needed for Pain. traZODone 2021-07 Yes 50mg Take 1 [facility] 50 mg 0-06 tablet by [facility] of tablet 00:00: mouth at [place] 00 bedtime. Medical Branch methocarbam 2021-07 Yes [id number] 500mg Take 1 [facility] oL 500 mg 0-06 tablet by [facility] o f tablet 00:00: mouth 4 00 (four) Medical times Branch daily as needed (muscle spasms). ibuprofen 2021-07 Yes [id number] 600mg Take 1 [facility] 600 mg 0-06 tablet by [facility] of tablet 00:00: mouth [place] 00 every 6 Medical (six) Branch hours as needed for Pain (scale 4-6). acetaminoph 2021-07 Yes [id number] 1000mg Take 2 [facility] en 500 mg 0-06 tablets by it[facility] of tablet 00:00: mouth [place] 00 every 8 Medical (eight) Branch hours as needed for Pain. traZODone 2021-07 Yes 50mg Take 1 [facility] 50 mg 0-06 tablet by [facility] of tablet 00:00: mouth at [place] 00 bedtime. Medical Branch methocarbam 2021-07 Yes [id number] 500mg Take 1 [facility] oL 500 mg 0-06 tablet by [facility] o f tablet 00:00: mouth (four) Medical times Branch daily as needed (muscle spasms). ibuprofen 2021-07 Yes [id number] 600mg Take 1 [facility] 600 mg 0-06 tablet by [facility] of tablet 00:00: mouth [place] 00 every 6 Medical (six) Branch hours as needed for Pain (scale 4-6). acetaminoph 2021-07 Yes [id number] 1000mg Take 2 [facility] en 500 mg 0-06 tablets by [facility] of tablet 00:00: mouth [place] 00 every 8 Medical (eight) Branch hours as needed for Pain. traZODone 2021-07 Yes 50mg Take 1 [facility] 50 mg 0-06 tablet by [facility] of tablet 00:00: mouth at [place] 00 bedtime. Medical Branch methocarbam 2021-07 Yes [id number] 500mg Take 1 [facility] oL 500 mg 0-06 tablet by [facility] o f tablet 00:00: mouth (four) Medical times Branch daily as needed (muscle spasms). ibuprofen 2021-07 Yes [id number] 600mg Take 1 [facility] 600 mg 0-06 tablet by ity of tablet 00:00: mouth [place] 00 every 6 Medical (six) Branch hours as needed for Pain (scale 4-6). acetaminoph 2021-07 No [id number] 1000mg Take 2 [facility] en 500 mg 0-06 -29 tablets by ity of tablet 00:00: 00:00 mouth [place] 00 :00 every 8 Medical (eight) Branch hours as needed for Pain. traZODone 2021-07 No 50mg Take 1 Un[facility] rs 50 mg 0-06 -29 tablet by ity of tablet 00:00: 00:00 mouth at [place] 00 :00 bedtime. Medical Branch methocarbam 2021-07- No [id number] 500mg Take 1 [facility] oL 500 mg 0-06 -29 tablet by ity of tablet 00:00: 00:00 mouth 4 [place] 00 :00 (four) Medical times Branch daily as needed (muscle spasms). ibuprofen 2021-07- No [id number] 600mg Take 1 [facility] 600 mg 0-06 11-29 tablet by ity of tablet 00:00: 00:00 mouth [place] 00 :00 every 6 Medical (six) Branch hours as needed for Pain (scale 4-6). acetaminoph 2021-07 No [id number] 1000mg Take 2 [facility] en 500 mg 0-06 -29 tablets by ity of tablet 00:00: 00:00 mouth [place] 00 :00 every 8 Medical (eight) Branch hours as needed for Pain. traZODone 2021-07 No 50mg Take 1 Unive rs 50 mg 0-12 11-29 tablet by ity of tablet 00:00: 00:00 mouth at [place] 00 :00 bedtime. Medical Branch methocarbam 2021-07- No [id number] 500mg Take 1 [facility] oL 500 mg 0-06 -29 tablet by ity of tablet 00:00: 00:00 mouth 4 [place] 00 :00 (four) Medical times Branch daily as needed (muscle spasms). ibuprofen 2021-07- No [id number] 600mg Take 1 [facility] 600 mg 0-06 11-29 tablet by ity of tablet 00:00: 00:00 mouth [place] 00 :00 every 6 Medical (six) Branch hours as needed for Pain (scale 4-6). acetaminoph 2021-07- No [id number] 1000mg Take 2 [facility] en 500 mg 0-06 11-29 tablets by ity of tablet 00:00: 00:00 mouth [place] 00 :00 every 8 Medical (eight) Branch hours as needed for Pain. traZODone 2021-07- No 50mg Take 1 [facility] rs 50 mg 0-06 -29 tablet by ity of tablet 00:00: 00:00 mouth at [place] 00 :00 bedtime. Medical Branch methocarbam 2021-07- No [id number] 500mg Take 1 [facility] oL 500 mg 0-06 -29 tablet by ity of tablet 00:00: 00:00 mouth 4 [place] 00 :00 (four) Medical times Branch daily as needed (muscle spasms). ibuprofen 2021-07- No [id number] 600mg Take 1 [facility] 600 mg 0-06 11-29 tablet by ity of tablet 00:00: 00:00 mouth [place] 00 :00 every 6 Medical (six) Branch hours as needed for Pain (scale 4-6). acetaminoph 2021-07- No [id number] 1000mg Take 2 [facility] en 500 mg 0-06 11-29 tablets by ity of tablet 00:00: 00:00 mouth [place] 00 :00 every 8 Medical (eight) Branch hours as needed for Pain. traZODone 2021-07- No 50mg Take 1 Unive rs 50 mg 0-12 11-29 tablet by ity of tablet 00:00: 00:00 mouth at [place] 00 :00 bedtime. Medical Branch methocarbam 2021-07- No [id number] 500mg Take 1 [facility] oL 500 mg 0-12 11-29 tablet by ity of tablet 00:00: 00:00 mouth 4 [place] 00 :00 (four) Medical times Branch daily as needed (muscle spasms). ibuprofen 2021-07- No [id number] 600mg Take 1 [facility] 600 mg 0-06 11-29 tablet by ity of tablet 00:00: 00:00 mouth [place] 00 :00 every 6 Medical (six) Branch hours as needed for Pain (scale 4-6). acetaminoph 2021-07- No [id number] 1000mg Take 2 [facility] en 500 mg 0-06 11-29 tablets by ity of tablet 00:00: 00:00 mouth [place] 00 :00 every 8 Medical (eight) Branch hours as needed for Pain. traZODone 2021-07 No 50mg Take 1 Unive rs 50 mg 005-31 tablet by ity of tablet 00:00: 00:00 mouth at [place] 00 :00 bedtime. Medical Branch methocarbam 2021-07 No [id number] 500mg Take 1 [facility] oL 500 mg 005-31 tablet by ity of tablet 00:00: 00:00 mouth 4 [place] 00 :00 (four) Medical times Branch daily as needed (muscle spasms). ibuprofen 2021-07- No [id number] 600mg Take 1 [facility] 600 mg 0-05-31 tablet by ity of tablet 00:00: 00:00 mouth [place] 00 :00 every 6 Medical (six) Branch hours as needed for Pain (scale 4-6). acetaminoph 2021-07 No [id number] 1000mg Take 2 [facility] en 500 mg 0-05-31 tablets by ity of tablet 00:00: 00:00 mouth [place] 00 :00 every 8 Medical (eight) Branch hours as needed for Pain. traZODone 2021-07 No 50mg Take 1 Unive rs 50 mg 005-31 tablet by ity of tablet 00:00: 00:00 mouth at [place] 00 :00 bedtime. Medical Branch methocarbam 2021-07 No [id number] 500mg Take 1 [facility] oL 500 mg 005-31 tablet by ity of tablet 00:00: 00:00 mouth 4 [place] 00 :00 (four) Medical times Branch daily as needed (muscle spasms). ibuprofen 2021-07- No [id number] 600mg Take 1 [facility] 600 mg 0-05-31 tablet by ity of tablet 00:00: 00:00 mouth [place] 00 :00 every 6 Medical (six) Branch hours as needed for Pain (scale 4-6). atomoxetine 2021-07 Yes 40mg 40 mg, Univ ers (STRATTERA) 0-05 Oral, ity of capsule 40 16:45: DAILY, [place] mg 00 First dose Medical on Mon Branch 04/06/22 at 1145, Until Discontinu ed, Routine
food court team member approving Non-formul freddie medication : PERSON, KEAGAN
[...] dose [place] mg 00 on Mon [facility] 04/06/22 at Branch 1145, Until Discontinu ed, Routine oxyCODONE 2021-07 Yes 5mg 5 mg, Univers immediate 0-05 Oral, ity of release 16:31: Q4HPRN, [place] tablet 5 mg 53 Starting Medi torito on Mon Branch 04/06/22 at 1131, Until Discontinu ed, Routine, Pain (scale 7-10)<b r>food court team member approving Restricted medication : PERSONKEAGAN celecoxib 2021-07 Yes 100mg 100 mg, Univ ers (CELEBREX) 0-05 Oral, BID ity of capsule 100 15:15: MEALS, [place] mg 00 First dose Medical on Mon Branch 04/06/22 at 1015, Until Discontinu ed, Routine acetaminoph 2021-07 Yes 1000mg 1,000 mg, Univers en 0-05 Oral, Q8H, ity of (TYLENOL) 15:15: First dose [place] tablet 00 on Mon Medical 1,000 mg 04/06/22 at [facility] h 1015, Until Discontinu ed, Routine tamsulosin 2021-07 Yes .4mg 0.4 mg, Univ ers (FLOMAX) 0-05 Oral, ity of capsule 0.4 14:00: DAILY, [place] 00 First dose Medical on Mon Branch 04/06/22 at 0900, Until Discontinu ed, Routine methocarbam 2021-07 Yes 1000mg 1,000 mg, Univers oL 0-05 Oral, QID, ity of (ROBAXIN) 13:00: First dose [place] tablet 00 on Mon Medical 1,000 mg 04/06/22 at [facility] h 0800, Until Discontinu ed, Routine enoxaparin 2021-07 Yes 30mg 30 mg, Unive rs (LOVENOX) 0-05 Subcutaneo ity of injection 01:00: us, Q12H, [place] as 30 mg 00 First dose Medical on [facility] 04/05/22 at 2000, Until Discontinu ed, Routine methocarbam 2021-07 No 1000mg 1,000 mg, Univers oL 0- 10-05 Intravenou ity of (ROBAXIN) 19:00: 11:05 s, Q8H, [place] 00 :13 First dose Medi [place] 1,000 mg on [facility] 04/05/22 at 1400, Until Discontinu ed, Routine acetaminoph 2021-07 No 1000mg 1,000 mg, Univers en ADULT 0- 10- IV ity of (OFIRMEV) 19:00: 14:37 Infusion, [...] 17 g 00 First dose Medical on [facility] 04/05/22 at 0915, Until Discontinu ed, Routine ibuprofen 2021-07 No 600mg 600 mg, Uni vers (IBU) 0-04 10-04 Oral, TID ity of tablet 600 13:00: 14:14 MEALS, [place] mg 00 :08 First dose Medical on [facility] 04/05/22 at 0800, Until Discontinu ed, Routine acetaminoph 2021-07 No 650mg 650 mg, U nivers en 0-04 10-04 Oral, Q6H, ity of (TYLENOL) 05:00: 15:12 First dose [place] tablet 650 00 :14 on [facility] Medical mg 04/05/22 at Branch 0000, Until [...] :08 Starting Medi [place] tablet 1 on [facility] tablet 04/04/22 at 1822, Until Mon04/05/22 at 0914, Routine, Pain (scale 4-6) FENTanyl PF 2021-07- No 50ug 50 mcg, Un [place] (SUBLIMAZE 0-03 10-03 Slow IV ity o f (PF)) 22:00: 21:05 Push, [place] injection 00 :00 ONCE, 1 Medical 50 mcg dose, On [facility] 04/04/22 at 1700, Routine FENTanyl PF 2021-07- No 50ug 50 mcg, Un [place] (SUBLIMAZE 0-03 10-03 Slow IV ity o f (PF)) 20:30: 19:32 Push, [place] injection 00 :00 ONCE, 1 Medical 50 mcg dose, On [facility] 04/04/22 at 1530, Routine ondansetron 2021-07- No 4mg 4 mg, Slow Univers (ZOFRAN 0-03 10-03 IV Push, ity of (PF)) 19:45: 19:32 ONCE, 1 [place] injection 4 00 :00 dose, On Medi torito mg [facility] 04/04/22 at 1445, ARLEN iopamidol 2021-07- No [id number] 80mL 80 mL, Univers (ISOVUE 0-03 10-03 Intravenou ity o f 370-500 mL) 19:00: 18:49 s, ONCE, 1 [place] injection 00 :00 dose, On Medica l 80 mL Mon Branch 04/04/22 at 1400, Routine NaCl 0.9% 2021- [...] 03/31/22 at 2315, ARLEN ARIPiprazol 0 Yes [id number] 300mg 300 mg by Univers e (ABILIFY 9-15 Intramuscu ity of MAINTENA) 00:00: lar route [place] as 300 mg sers 00 once every Me dical month. Branch ARIPiprazol 2021-0 Yes 300mg 300 mg by Univers e (ABILIFY 9-15 Intramuscu ity of MAINTENA) 00:00: lar route [place] 300 mg sers 00 once every Me dical month. Branch ARIPiprazol 2021-0 Yes [id number] 300mg 300 mg by Univers e (ABILIFY 9-15 Intramuscu ity of MAINTENA) 00:00: lar route [place] 300 mg sers 00 once every Me dical month. Branch ARIPiprazol 2021-0 Yes 300mg 300 mg by Univers e (ABILIFY 9-15 Intramuscu ity of MAINTENA) 00:00: lar route [place] 300 mg sers 00 once every Me dical month. Branch ARIPiprazol 2021-0 Yes [id number] 300mg 300 mg by Univers e (ABILIFY 9-15 Intramuscu ity of MAINTENA) 00:00: lar route [place] 300 mg sers 00 once every Me dical month. Branch ARIPiprazol 2021-0 Yes 300mg 300 mg by Univers e (ABILIFY 9-15 Intramuscu ity of MAINTENA) 00:00: lar route [place] 300 mg sers 00 once every Me dical month. Branch ARIPiprazol 2-0 Yes [id number] 300mg 300 mg by Univers e (ABILIFY 9-15 Intramuscu ity of MAINTENA) 00:00: lar route [place] 300 mg sers 00 once every Me dical month. Branch ARIPiprazol 2-0 Yes 300mg 300 mg by Univers e (ABILIFY 9-15 Intramuscu ity of MAINTENA) 00:00: lar route [place] 300 mg sers 00 once every Me dical month. Branch ARIPiprazol 2-0 Yes [id number] 300mg 300 mg by Univers e (ABILIFY 9-15 Intramuscu ity of MAINTENA) 00:00: lar route [place] 300 mg sers 00 once every Me dical month. Branch ARIPiprazol 2-0 Yes 300mg 300 mg by Univers e (ABILIFY 9-15 Intramuscu ity of MAINTENA) 00:00: lar route [place] 300 mg sers 00 once every Me dical month. Branch ARIPiprazol 2-0 Yes [id number] 300mg 300 mg by Univers e (ABILIFY 9-15 Intramuscu ity of MAINTENA) 00:00: lar route [place] 300 mg sers 00 once every Me dical month. Branch ARIPiprazol 2-0 Yes 300mg 300 mg by Univers e (ABILIFY 9-15 Intramuscu ity of MAINTENA) 00:00: lar route [place] 300 mg sers 00 once every Me dical month. Branch ARIPiprazol 2022-0 Yes [id number] 300mg 300 mg by Univers e (ABILIFY 9-15 Intramuscu ity of MAINTENA) 00:00: lar route [place] 300 mg sers 00 once every Me dical month. Branch ARIPiprazol 2-0 Yes 300mg 300 mg by Univers e (ABILIFY 9-15 Intramuscu ity of MAINTENA) 00:00: lar route [place] 300 mg sers 00 once every Me dical month. Branch ARIPiprazol 2022-0 Yes [id number] 300mg 300 mg by Univers e (ABILIFY 9-15 Intramuscu ity of MAINTENA) 00:00: lar route [place] 300 mg sers 00 once every Me dical month. Branch ARIPiprazol 2-0 Yes [id number] 300mg 300 mg by Univers e ([facility]ILIFY 9-15 [facility] 00:00: lar route [place] 300 mg sers 00 once every Me dical month. Branch ARIPiprazol 2-0 Yes [id number] 300mg 300 mg by Univers e (ABILIFY 9-15 Intramuscu ity of MAINTENA) 00:00: lar route [place] 300 mg sers 00 once every Me dical month. Branch ARIPiprazol 2-0 Yes [id number] 300mg 300 mg by Univers e (ABILIFY 9-15 [facility] 00:00: lar route [place] 300 mg sers 00 once every Me dical month. Branch ARIPiprazol 2021-0 Yes [id number] 300mg 300 mg by Univers e (ABILIFY 9-15 [facility] 00:00: lar route [place] 300 mg sers 00 once every Me dical month. Branch ARIPiprazol 2-0 Yes [id number] 300mg 300 mg by Univers e (ABILIFY 9-15 [facility] 00:00: lar route [place] 300 mg sers 00 once every Me dical month. Branch ARIPiprazol 2-0 2- No 300mg 300 mg by Univers e (ABILIFY 915 - Intramuscu it y of MAINTENA) 00:00: 00:00 lar route [place] 300 mg sers 00 :00 once every Me dical month. Branch ARIPiprazol 2-0 2- No 300mg 300 mg by Univers e (ABILIFY 9-15 10- Intramuscu it y of MAINTENA) 00:00: 00:00 lar route [place] 300 mg sers 00 :00 once every Me dical month. Branch ARIPiprazol 2-0 2- No 300mg 300 mg by Univers e (ABILIFY 9-15 10- Intramuscu it y of MAINTENA) 00:00: 00:00 lar route [place] 300 mg sers 00 :00 once every Me dical month. Branch ARIPiprazol 2021-0 2022- No 300mg 300 mg by Univers e (ABILIFY 03-17 [facility] 00:00: 00:00 lar route [place] 300 mg sers 00 :00 once every Me dical month. Branch ARIPiprazol 2-0 2022- No 300mg 300 mg by Univers e (ABILIFY 03-17 [facility] 00:00: 00:00 lar route [place] 300 mg sers 00 :00 once every Me dical month. Branch ARIPiprazol 2-0 2022- No 300mg 300 mg by Univers e (ABILIFY 03-[address] [facility]) 00:00: 00:00 lar route [place] 300 mg sers 00 :00 once every Me dical month. Branch ARIPiprazol 2-0 2022- No 300mg 300 mg by Univers e (ABILIFY 03-17 [facility] 00:00: 00:00 lar route [place] 300 mg sers 00 :00 once every Me dical month. Branch ARIPiprazol 2-0 2022- No 300mg 300 mg by Univers e (ABILIFY 03-17 [facility] 00:00: 00:00 lar route [place] 300 mg sers 00 :00 once every Me dical month. Branch ARIPiprazol 2022-0 2022- No 300mg 300 mg by Univers e (ABILIFY 03-17 [facility] 00:00: 00:00 lar route [place] 300 mg sers 00 :00 once every Me dical month. Branch ARIPiprazol 2022-0 2022- No 300mg 300 mg by Univers e (ABILIFY 03-17 [facility] 00:00: 00:00 lar route [place] 300 [...] Me dical month. Branch ARIPiprazol 2021- No [id number] 10mg Take 1 U nivers e 10 mg 9-08 10-09 tablet by ity of tablet 00:00: 04:59 mouth in [place] 00 :00 the [facility] for 30 days. ARIPiprazol 2021-2021- No [id number] 10mg Take 1 U nivers e 10 mg 9-08 10-09 tablet by ity of tablet 00:00: 04:59 mouth in [place] 00 :00 [facility] for 30 days. ARIPiprazol 2021-2021- No [id number] 10mg Take 1 U nivers e 10 mg 9-08 10-09 tablet by ity of tablet 00:00: 04:59 mouth in [place] 00 :00 [facility] for 30 days. ARIPiprazol 2021-2021- No [id number] 10mg Take 1 U nivers e 10 mg 9-08 10-09 tablet by ity of tablet 00:00: 04:59 mouth in [place] 00 :00 [facility] for 30 days. ARIPiprazol 2021-2021- No [id number] 10mg Take 1 U nivers e 10 mg 9-08 10-09 tablet by ity of tablet 00:00: 04:59 mouth in [place] 00 :00 [facility] for 30 days. ARIPiprazol 2021-2021- No [id number] 10mg Take 1 U nivers e 10 mg 9-08 10-09 tablet by ity of tablet 00:00: 04:59 mouth in [place] 00 :00 [facility] for 30 days. ARIPiprazol 2021-2021- No [id number] 10mg Take 1 U nivers e 10 mg 9-08 10-09 tablet by ity of tablet 00:00: 04:59 mouth in [place] 00 :00 [facility] for 30 days. ARIPiprazol 2021-2021- No [id number] 10mg Take 1 U nivers e 10 mg 9-08 10-09 tablet by ity of tablet 00:00: 04:59 mouth in [place] 00 :00 [facility] for 30 days. ARIPiprazol 2022-0 2022- No [id number] 10mg Take 1 U nivers e 10 mg 9-08 10-09 tablet by ity of tablet 00:00: 04:59 mouth in [place] 00 :00 the [facility] for 30 days. ARIPiprazol 2021-2021- No [id number] 10mg Take 1 U nivers e 10 mg 9-08 10-09 tablet by ity of tablet 00:00: 04:59 mouth in [place] 00 :00 the [facility] for 30 days. ARIPiprazol 2021-2021- No [id number] 10mg Take 1 U nivers e 10 mg 9-08 10-09 tablet by ity of tablet 00:00: 04:59 mouth in [place] 00 :00 the [facility] for 30 days. ARIPiprazol 2021- No [id number] 10mg Take 1 U nivers e 10 mg 9-08 10-09 tablet by ity of tablet 00:00: 04:59 mouth in [place] 00 :00 [facility] for 30 days. ARIPiprazol 2021-2021- No [id number] 10mg Take 1 U nivers e 10 mg 9-08 10-09 tablet by ity of tablet 00:00: 04:59 mouth in [place] 00 :00 [facility] for 30 days. ARIPiprazol 2021-2021- No [id number] 10mg Take 1 U nivers e 10 mg 9-08 10-09 tablet by ity of tablet 00:00: 04:59 mouth in [place] 00 :00 the [facility] for 30 days. ARIPiprazol 2021-2021- No [id number] 10mg Take 1 U nivers e 10 mg 9-08 10-09 tablet by ity of tablet 00:00: 04:59 mouth in [place] 00 :00 [facility] for 30 days. ARIPiprazol 2021-2021- No [id number] 10mg Take 1 U nivers e 10 mg 9-08 10-09 tablet by ity of tablet 00:00: 04:59 mouth in [place] 00 :00 the [facility] for 30 days. ARIPiprazol 2021-2021- No [id number] 10mg Take 1 U nivers e 10 mg 9-08 10-09 tablet by ity of tablet 00:00: 04:59 mouth in [place] 00 :00 the Medical morning Branch for 30 days. ARIPiprazol 2021-2021- No [id number] 10mg Take 1 U nivers e 10 mg 9-08 10-09 tablet by ity of tablet 00:00: 04:59 mouth in [place] 00 :00 the Medical morning Branch for 30 days. ARIPiprazol 2021-2021- No [id number] 10mg Take 1 U nivers e 10 mg 9-08 10-09 tablet by ity of tablet 00:00: 04:59 mouth in [place] 00 :00 the [facility] morning Branch for 30 days. ARIPiprazol 2021-2021- No [id number] 10mg Take 1 U nivers e 10 mg 9-08 10-09 tablet by ity of tablet 00:00: 04:59 mouth in [place] 00 :00 the [facility] morning Branch for 30 days. ARIPiprazol 2021-2021- No [id number] 10mg Take 1 U nivers e 10 mg 9-08 10-09 tablet by ity of tablet 00:00: 04:59 mouth in [place] 00 :00 the [facility] morning [place] for 30 days. ARIPiprazol 2021-2021- No [id number] 10mg Take 1 U nivers e 10 mg 9-08 10-09 tablet by ity of tablet 00:00: 04:59 mouth in [place] 00 :00 the [facility] morning Branch for 30 days. ARIPiprazol 2021-2021- No [id number] 10mg Take 1 U nivers e 10 mg 9-08 10-09 tablet by ity of tablet 00:00: 04:59 mouth in [place] 00 :00 the [facility] for 30 days. ARIPiprazol 2021-2021- No [id number] 10mg Take 1 U nivers e 10 mg 9-08 10-09 tablet by ity of tablet 00:00: 04:59 mouth in [place] 00 :00 the [facility] for 30 days. ARIPiprazol 2021-2021- No [id number] 10mg Take 1 U nivers e 10 mg 9-08 10-09 tablet by ity of tablet 00:00: 04:59 mouth in [place] 00 :00 the [facility] for 30 days. ARIPiprazol 2021- No [id number] 10mg Take 1 U nivers e 10 mg - 10-09 tablet by ity of tablet 00:00: 04:59 mouth in [place] 00 :00 the [facility] for 30 days. ARIPiprazol 2021- No [id number] 10mg Take 1 U nivers e 10 mg - 10-09 tablet by ity of tablet 00:00: 04:59 mouth in [place] 00 :00 the [facility] for 30 days. ARIPiprazol 2021- No [id number] 10mg Take 1 U nivers e 10 mg - 10- tablet by ity of tablet 00:00: 04:59 mouth in [place] 00 :00 the [facility] for 30 days. ARIPiprazol 2021- No [id number] 300mg 300 mg by Univers e (ABILIFY 03-[address] [facility]) 00:00: 05:59 lar route [place] 300 mg sers 00 :00 once every Me dical month for Branch 90 days. ARIPiprazol 2021- No [id number] 300mg 300 mg by Univers e (ABILIFY 03-[address] [facility]) 00:00: 00:00 lar route [place] 300 mg sers 00 :00 once every Me dical month for Branch 90 days. ARIPiprazol 2021- No [id number] 300mg 300 mg by Univers e (ABILIFY 03-[address] [facility]) 00:00: 00:00 lar route [place] 300 mg sers 00 :00 once every Me dical month for Branch 90 days. ARIPiprazol 2021- No [id number] 300mg 300 mg by Univers e (ABILIFY 03-[address] [facility]) 00:00: 00:00 lar route [place] 300 mg sers 00 :00 once every Me dical month for Branch 90 days. ARIPiprazol 2021- No [id number] 300mg 300 mg by Univers e (ABILIFY 03-[address] [facility]) 00:00: 00:00 lar route [place] 300 mg sers 00 :00 once every Me dical month for Branch 90 days. ARIPiprazol 2021- No [id number] 300mg 300 mg by Univers e (ABILIFY 03-[address] [facility]) 00:00: 00:00 lar route [place] 300 mg sers 00 :00 once every Me dical month for Branch 90 days. QUEtiapine 2021- No [id number] 50mg Take 1 Un [place] 50 mg 7-08 tablet by ity of tablet 00:00: 00:00 mouth in [place] 00 :00 the Medical morning Branch and 1 tablet in the evening. Do all this for 60 days. QUEtiapine 2021- No [id number] 50mg Take 1 Un [place] 50 mg 7-18 -08 tablet by ity of tablet 00:00: 00:00 mouth in [place] 00 :00 the Medical morning [place] and 1 tablet in the evening. Do all this for 60 days. QUEtiapine 2021- No [id number] 50mg Take 1 Un [place] 50 mg 01-17-08 tablet by ity of tablet 00:00: 00:00 mouth in [place] 00 :00 the [facility] morning [place] and 1 tablet in the evening. Do all this for 60 days. QUEtiapine 2021- No [id number] 50mg Take 1 Un [place] 50 mg 7-18 -08 tablet by ity of tablet 00:00: 00:00 mouth in [place] 00 :00 the Medical morning [place] and 1 tablet in the evening. Do all this for 60 days. QUEtiapine 2021- No [id number] 50mg Take 1 Un [place] 50 mg 7-18 09-08 tablet by ity of tablet 00:00: 00:00 mouth in [place] 00 :00 the [facility] morning [place] and 1 tablet in the evening. Do all this for 60 days. lithium 2021- No [id number] 300mg Take 1 U nivers carbonate 12-07 tablet by ity of CR 300 mg 00:00: 04:59 mouth at [facility] [place] [facility] as SR tablet 00 :00 bedtime Medical for 90 Branch days. lithium No [id number] 450mg Take 1 U nivers carbonate 12-07 tablet by ity of CR 450 mg 00:00: 04:59 mouth [place] SR tablet 00 :00 every Medical morning Branch for 90 days. lithium No [id number] 300mg Take 1 U nivers carbonate 12-07 tablet by ity of CR 300 mg 00:00: 04:59 mouth at [place] as SR tablet 00 :00 bedtime Medical for 90 Branch days. lithium No [id number] 450mg Take 1 U nivers carbonate 12-07 tablet by ity of CR 450 mg 00:00: 04:59 mouth [place] SR tablet 00 :00 every Medical morning Branch for 90 days. lithium No [id number] 300mg Take 1 U nivers carbonate 12-07 tablet by ity of CR 300 mg 00:00: 04:59 mouth at [place] as SR tablet 00 :00 bedtime Medical for 90 Branch days. lithium No [id number] 450mg Take 1 U nivers carbonate 12-07 tablet by ity of CR 450 mg 00:00: 04:59 mouth [place] SR tablet 00 :00 every Medical morning Branch for 90 days. lithium No [id number] 300mg Take 1 U nivers carbonate 12-07 tablet by ity of CR 300 mg 00:00: 04:59 mouth at [place] as SR tablet 00 :00 bedtime Medical for 90 Branch days. lithium No [id number] 450mg Take 1 U nivers carbonate 12-07 tablet by ity of CR 450 mg 00:00: 04:59 mouth [place] SR tablet 00 :00 every Medical morning Branch for 90 days. lithium No [id number] 300mg Take 1 U nivers carbonate 12-07 tablet by ity of CR 300 mg 00:00: 04:59 mouth at [place] as SR tablet 00 :00 bedtime Medical for 90 Branch days. lithium No [id number] 450mg Take 1 U nivers carbonate 6-07 09-06 tablet by ity of CR 450 mg 00:00: 04:59 mouth [place] SR tablet 00 :00 every Medical morning Branch for 90 days. miSOPROStoL 2-0 Yes [id number] 200ug Take 1 Univers 200 mcg 4-29 tablet by ity of tablet 00:00: mouth [facility] Medical CTIONS. Branch Take one tab the night before and one tab the morning of procedure miSOPROStoL 2021-0 Yes [id number] 200ug Take 1 Univers 200 mcg 4-29 tablet by ity of tablet 00:00: mouth [facility] Medical CTIONS. Branch Take one tab the night before and one tab the morning of procedure miSOPROStoL 2021-0 Yes [id number] 200ug Take 1 Univers 200 mcg 4-29 tablet by [facility]y [facility] tablet 00:[facility]: [facility] Branch Take one tab the night before and one tab the morning of procedure miSOPROStoL 2021-0 Yes [id number] 200ug Take 1 Univers 200 mcg 4-29 tablet by ity of tablet 00:00: [facility] Branch Take one tab the night before and one tab the morning of procedure miSOPROStoL 2021-0 Yes [id number] 200ug Take 1 Univers 200 mcg 4-29 tablet by ity of tablet 00:00: [facility]. Branch Take one tab the night before and one tab the morning of procedure miSOPROStoL 2021-0 Yes [id number] 200ug Take 1 Univers 200 mcg 4-29 tablet by ity of tablet 00:00: [facility] Medical CTIONS. Branch Take one tab the night before and one tab the morning of procedure miSOPROStoL 2-0 Yes [id number] 200ug Take 1 Univers 200 mcg 4-29 tablet by ity of tablet 00:00: mouth SEE-[facility] Medical CTIONS. Branch Take one tab the night before and one tab the morning of procedure miSOPROStoL 2-0 Yes [id number] 200ug Take 1 [facility] 200 mcg 4-29 tablet by ity of tablet 00:00: mouth SEE-[facility] Medical CTIONS. Branch Take one tab the night before and one tab the morning of procedure miSOPROStoL 2-0 Yes [id number] 200ug Take 1 [facility] 200 mcg 4-29 tablet by ity of tablet 00:00: mouth [place] 00 [facility] Medical CTIONS. Branch Take one tab the night before and one tab the morning of procedure miSOPROStoL 2021- No [id number] 200ug Take 1 [facility] 200 mcg 4-29 10-06 tablet by ity of tablet 00:00: 00:00 [facility] [place] 00 :00 [facility] Medical CTIONS. Branch Take one tab the night before and one tab the morning of procedure miSOPROStoL 2021- No [id number] 200ug Take 1 [facility] 200 mcg 4-29 10-06 tablet by ity of tablet 00:00: 00:00 [facility] 00 :00 SEE-[facility] Medical CTIONS. Branch Take one tab the night before and one tab the morning of procedure miSOPROStoL 2021- No [id number] 200ug Take 1 [facility] 200 mcg 4-29 10-06 tablet by ity of tablet 00:00: 00:00 [facility] 00 :00 [facility] Medical CTIONS. Branch Take one tab the night before and one tab the morning of procedure miSOPROStoL 2021- No [id number] 200ug Take 1 [facility] 200 mcg 4-29 10-06 tablet by ity of tablet 00:00: 00:00 [facility] 00 :00 [facility] Medical CTIONS. Branch Take one tab the night before and one tab the morning of procedure miSOPROStoL 2021- No [id number] 200ug Take 1 [facility] 200 mcg 4-29 10-06 tablet by ity of tablet 00:00: 00:00 [facility] 00 :00 [facility] Medical CTIONS. Branch Take one tab the night before and one tab the morning of procedure miSOPROStoL 2021- No [id number] 200ug Take 1 [facility] 200 mcg 4-29 10-06 tablet by ity of tablet 00:00: 00:00 [facility] 00 :00 [facility] Medical CTIONS. Branch Take one tab the night before and one tab the morning of procedure miSOPROStoL 2021- No [id number] 200ug Take 1 [facility] 200 mcg 4-29 10-06 tablet by ity of tablet 00:00: 00:00 [facility] 00 :00 [facility] Medical CTIONS. Branch Take one tab the night before and one tab the morning of procedure miSOPROStoL 2021- No [id number] 200ug Take 1 [facility] 200 mcg 4-29 10-06 tablet by ity of tablet 00:00: 00:00 mouth [place] 00 :00 [facility] Medical CTIONS. Branch Take one tab the night before and one tab the morning of procedure miSOPROStoL 2021- No [id number] 200ug Take 1 [facility] 200 mcg 4-29 10-06 tablet by ity of tablet 00:00: 00:00 mouth [place] 00 :00 [facility] Medical CTIONS. Branch Take one tab the night before and one tab the morning of procedure miSOPROStoL 2021- No [id number] 200ug Take 1 [facility] 200 mcg 4-29 10-06 tablet by ity of tablet 00:00: 00:00 mouth [place] 00 :00 [facility] Medical CTIONS. Branch Take one tab the night before and one tab the morning of procedure miSOPROStoL 2021- No [id number] 200ug Take 1 [facility] 200 mcg 4-29 10-06 tablet by ity of tablet 00:00: 00:00 mouth [place] 00 :00 [facility] Medical CTIONS. Branch Take one tab the night before and one tab the morning of procedure miSOPROStoL 2021- No [id number] 200ug Take 1 [facility] 200 mcg 4-29 10-06 tablet by ity of tablet 00:00: 00:00 [facility] 00 :00 SEE-[facility] Medical CTIONS. Branch Take one tab the night before and one tab the morning of procedure miSOPROStoL 2021- No [id number] 200ug Take 1 [facility] 200 mcg 4-29 10-06 tablet by ity of tablet 00:00: 00:00 mouth [place] 00 :00 [facility] Medical CTIONS. Branch Take one tab the night before and one tab the morning of procedure miSOPROStoL 2021-2021- No [id number] 200ug Take 1 [facility] 200 mcg 4-29 10-06 tablet by ity of tablet 00:00: 00:00 mouth [place] 00 :00 [facility] Medical CTIONS. Branch Take one tab the night before and one tab the morning of procedure miSOPROStoL 2021- No [id number] 200ug Take 1 [facility] 200 mcg 4-29 10-06 tablet by ity of tablet 00:00: 00:00 mouth [place] 00 :00 [facility] Medical CTIONS. Branch Take one tab the night before and one tab the morning of procedure miSOPROStoL 2021- No [id number] 200ug Take 1 [facility] 200 mcg 4-29 10-06 tablet by ity of tablet 00:00: 00:00 mouth [place] 00 :00 [facility] Medical CTIONS. Branch Take one tab the night before and one tab the morning of procedure miSOPROStoL 2021- No [id number] 200ug Take 1 [facility] 200 mcg 4-29 10-06 tablet by ity of tablet 00:00: 00:00 mouth [place] 00 :00 [facility] Medical CTIONS. Branch Take one tab the night before and one tab the morning of procedure miSOPROStoL 2021- No [id number] 200ug Take 1 [facility] 200 mcg 4-29 10-06 tablet by ity of tablet 00:00: 00:00 mouth [place] 00 :00 [facility] Medical CTIONS. Branch Take one tab the night before and one tab the morning of procedure Immunizations Ordered Immunization Filled Date Status Comments Sour ce Name Immunization Name SARS-COV-2 COVID-2022-03-17 Completed [facility]ive [facility] of [facility]CR[facility] VACCINE 00:00:00 [facility] 12 YRS+, BIVALENT Branch 0.3ML, IM, (PFIZER ARITA TOP BOOSTER) SARS-COV-2 COVID-19 2022-03-17 Completed Unive rsity of MIKE-SUCROSE VACCINE 00:00:00 [facility] 12 YRS+, BIVALENT Branch 0.3ML, IM, (PFIZER ARITA TOP BOOSTER) SARS-COV-2 COVID-19 2022-03-17 Completed Unive rsity of MIKE-SUCROSE VACCINE 00:00:00 [facility] 12 YRS+, BIVALENT Branch 0.3ML, IM, (PFIZER ARITA TOP BOOSTER) SARS-COV-2 COVID-19 2022-03-17 Completed Unive rsity of MIKE-SUCROSE VACCINE 00:00:00 [facility] 12 YRS+, BIVALENT Branch 0.3ML, IM, (PFIZER ARITA TOP BOOSTER) SARS-COV-2 COVID-19 2022-03-17 Completed Unive rsity of MIKE-SUCROSE VACCINE 00:00:00 [facility] 12 YRS+, BIVALENT Branch 0.3ML, IM, (PFIZER ARITA TOP BOOSTER) SARS-COV-2 COVID-19 2022-03-17 Completed Unive rsity of MIKE-SUCROSE VACCINE 00:00:00 [facility] 12 YRS+, BIVALENT Branch 0.3ML, IM, (PFIZER ARITA TOP BOOSTER) SARS-COV-2 COVID-19 2022-03-17 Completed Unive rsity of MIKE-SUCROSE VACCINE 00:00:00 [facility] 12 YRS+, BIVALENT Branch 0.3ML, IM, (PFIZER ARITA TOP BOOSTER) SARS-COV-2 COVID-19 2022-03-17 Completed Unive rsity of MIKE-SUCROSE VACCINE 00:00:00 [facility] 12 YRS+, BIVALENT Branch 0.3ML, IM, (PFIZER ARITA TOP BOOSTER) SARS-COV-2 COVID-19 2022-03-17 Completed Unive rsity of MIKE-SUCROSE VACCINE 00:00:00 [facility] 12 YRS+, BIVALENT Branch 0.3ML, IM, (PFIZER ARITA TOP BOOSTER) SARS-COV-2 COVID-19 2022-03-17 Completed Unive rsity of MIKE-SUCROSE VACCINE 00:00:00 [facility] 12 YRS+, BIVALENT Branch 0.3ML, IM, (PFIZER ARITA TOP BOOSTER) SARS-COV-2 COVID-19 2022-03-17 Completed Unive rsity of MIKE-SUCROSE VACCINE 00:00:00 [facility] 12 YRS+, BIVALENT Branch 0.3ML, IM, (PFIZER ARITA TOP BOOSTER) SARS-COV-2 COVID-19 2022-03-17 Completed Unive rsity of MIKE-SUCROSE VACCINE 00:00:00 [facility] 12 YRS+, BIVALENT Branch 0.3ML, IM, (PFIZER ARITA TOP BOOSTER) SARS-COV-2 COVID-19 2022-03-17 Completed Unive rsity of MIKE-SUCROSE VACCINE 00:00:00 [facility] 12 YRS+, BIVALENT Branch 0.3ML, IM, (PFIZER ARITA TOP BOOSTER) SARS-COV-2 COVID-19 2022-03-17 Completed Unive rsity of MIKE-SUCROSE VACCINE 00:00:00 [facility] 12 YRS+, BIVALENT Branch 0.3ML, IM, (PFIZER ARITA TOP BOOSTER) SARS-COV-2 COVID-19 2022-03-17 Completed Unive rsity of MIKE-SUCROSE VACCINE 00:00:00 [facility] 12 YRS+, BIVALENT Branch 0.3ML, IM, (PFIZER ARITA TOP BOOSTER) SARS-COV-2 COVID-19 2022-03-17 Completed Unive rsity of MIKE-SUCROSE VACCINE 00:00:00 [facility] 12 YRS+, BIVALENT Branch 0.3ML, IM, (PFIZER ARITA TOP BOOSTER) SARS-COV-2 COVID-19 2022-03-17 Completed Unive rsity of MIKE-SUCROSE VACCINE 00:00:00 [facility] 12 YRS+, BIVALENT Branch 0.3ML, IM, (PFIZER ARITA TOP BOOSTER) SARS-COV-2 COVID-19 2022-03-17 Completed Unive rsity of MIKE-SUCROSE VACCINE 00:00:00 [facility] 12 YRS+, BIVALENT Branch 0.3ML, IM, (PFIZER ARITA TOP BOOSTER) SARS-COV-2 COVID-19 2022-03-17 Completed Unive rsity of MIKE-SUCROSE VACCINE 00:00:00 [facility] 12 YRS+, BIVALENT Branch 0.3ML, IM, (PFIZER ARITA TOP BOOSTER) SARS-COV-2 COVID-19 2022-03-17 Completed Unive rsity of MIKE-SUCROSE VACCINE 00:00:00 [facility] 12 YRS+, BIVALENT Branch 0.3ML, IM, (PFIZER ARITA TOP BOOSTER) SARS-COV-2 COVID-19 2022-03-17 Completed Unive rsity of MIKE-SUCROSE VACCINE 00:00:00 [facility] 12 YRS+, BIVALENT Branch 0.3ML, IM, (PFIZER ARITA TOP BOOSTER) SARS-COV-2 COVID-19 2022-03-17 Completed Unive rsity of MIKE-SUCROSE VACCINE 00:00:00 [facility] 12 YRS+, BIVALENT Branch 0.3ML, IM, (PFIZER ARITA TOP BOOSTER) SARS-COV-2 COVID-19 2022-03-17 Completed Unive rsity of MIKE-SUCROSE VACCINE 00:00:00 [facility] 12 YRS+, BIVALENT Branch 0.3ML, IM, (PFIZER ARITA TOP BOOSTER) SARS-COV-2 COVID-19 2022-03-17 Completed Unive rsity of MIKE-SUCROSE VACCINE 00:00:00 [facility] 12 YRS+, BIVALENT Branch 0.3ML, IM, (PFIZER ARITA TOP BOOSTER) SARS-COV-2 COVID-19 2022-03-17 Completed Unive rsity of MIKE-SUCROSE VACCINE 00:00:00 [facility] 12 YRS+, BIVALENT Branch 0.3ML, IM, (PFIZER ARITA TOP BOOSTER) SARS-COV-2 COVID-19 2022-03-17 Completed Unive rsity of MIKE-SUCROSE VACCINE 00:00:00 [facility] 12 YRS+, BIVALENT Branch 0.3ML, IM, (PFIZER ARITA TOP BOOSTER) SARS-COV-2 COVID-19 2022-03-17 Completed Unive rsity of MIKE-SUCROSE VACCINE 00:00:00 [facility] 12 YRS+, BIVALENT Branch 0.3ML, IM, (PFIZER ARITA TOP BOOSTER) SARS-COV-2 COVID-19 2022-03-17 Completed Unive rsity of MIKE-SUCROSE VACCINE 00:00:00 [facility] 12 YRS+, BIVALENT Branch 0.3ML, IM, (PFIZER ARITA TOP BOOSTER) SARS-COV-2 COVID-19 2022-03-17 Completed Unive rsity of MIKE-SUCROSE VACCINE 00:00:00 [facility] 12 YRS+, BIVALENT Branch 0.3ML, IM, (PFIZER ARITA TOP BOOSTER) SARS-COV-2 COVID-19 2022-03-17 Completed Unive rsity of MIKE-SUCROSE VACCINE 00:00:00 [facility] 12 YRS+, BIVALENT Branch 0.3ML, IM, (PFIZER ARITA TOP BOOSTER) SARS-COV-2 COVID-19 2022-03-17 Completed Unive rsity of MIKE-SUCROSE VACCINE 00:00:00 [facility] 12 YRS+, BIVALENT Branch 0.3ML, IM, (PFIZER ARITA TOP BOOSTER) SARS-COV-2 COVID-19 2022-03-17 Completed Unive rsity of MIKE-SUCROSE VACCINE 00:00:00 [facility] 12 YRS+, BIVALENT Branch 0.3ML, IM, (PFIZER ARITA TOP BOOSTER) SARS-COV-2 COVID-19 2022-03-17 Completed Unive rsity of MIKE-SUCROSE VACCINE 00:00:00 [facility] 12 YRS+, BIVALENT Branch 0.3ML, IM, (PFIZER ARITA TOP BOOSTER) SARS-COV-2 COVID-19 2022-03-17 Completed Unive rsity of MIKE-SUCROSE VACCINE 00:00:00 [facility] 12 YRS+, BIVALENT Branch 0.3ML, IM, (PFIZER ARITA TOP BOOSTER) SARS-COV-2 COVID-19 2022-03-17 Completed Unive rsity of MIKE-SUCROSE VACCINE 00:00:00 [facility] 12 YRS+, BIVALENT Branch 0.3ML, IM, (PFIZER ARITA TOP BOOSTER) SARS-COV-2 COVID-19 2022-03-17 Completed Unive rsity of MIKE-SUCROSE VACCINE 00:00:00 [facility] 12 YRS+, BIVALENT Branch 0.3ML, IM, (PFIZER ARITA TOP BOOSTER) SARS-COV-2 COVID-19 2022-03-17 Completed Unive rsity of MIKE-SUCROSE VACCINE 00:00:00 [facility] 12 YRS+, BIVALENT Branch 0.3ML, IM, (PFIZER ARITA TOP BOOSTER) SARS-COV-2 COVID-19 2022-03-17 Completed Unive rsity of MIKE-SUCROSE VACCINE 00:00:00 [facility] 12 YRS+, BIVALENT Branch 0.3ML, IM, (PFIZER ARITA TOP BOOSTER) SARS-COV-2 COVID-19 2022-03-17 Completed Unive rsity of MIKE-SUCROSE VACCINE 00:00:00 [facility] 12 YRS+, BIVALENT Branch 0.3ML, IM, (PFIZER ARITA TOP BOOSTER) SARS-COV-2 COVID-19 2022-03-17 Completed Unive rsity of MIKE-SUCROSE VACCINE 00:00:00 [facility] 12 YRS+, BIVALENT Branch 0.3ML, IM, (PFIZER ARITA TOP BOOSTER) SARS-COV-2 COVID-19 2022-03-17 Completed Unive rsity of MIKE-SUCROSE VACCINE 00:00:00 [facility] 12 YRS+, BIVALENT Branch 0.3ML, IM, (PFIZER ARITA TOP BOOSTER) SARS-COV-2 COVID-19 2022-03-17 Completed Unive rsity of MIKE-SUCROSE VACCINE 00:00:00 [facility] 12 YRS+, BIVALENT Branch 0.3ML, IM, (PFIZER ARITA TOP BOOSTER) SARS-COV-2 COVID-19 2022-03-17 Completed Unive rsity of MIKE-SUCROSE VACCINE 00:00:00 [facility] 12 YRS+, BIVALENT Branch 0.3ML, IM, (PFIZER ARITA TOP BOOSTER) SARS-COV-2 COVID-19 2022-03-17 Completed Unive rsity of MIKE-SUCROSE VACCINE 00:00:00 [facility] 12 YRS+, BIVALENT Branch 0.3ML, IM, (PFIZER ARITA TOP BOOSTER) SARS-COV-2 COVID-19 2022-03-17 Completed Unive rsity of MIKE-SUCROSE VACCINE 00:00:00 [facility] 12 YRS+, BIVALENT Branch 0.3ML, IM, (PFIZER ARITA TOP BOOSTER) SARS-COV-2 COVID-19 2022-03-17 Completed Unive rsity of MIKE-SUCROSE VACCINE 00:00:00 [facility] 12 YRS+, BIVALENT Branch 0.3ML, IM, (PFIZER ARITA TOP BOOSTER) SARS-COV-2 COVID-19 2022-03-17 Completed Unive rsity of MIKE-SUCROSE VACCINE 00:00:00 [facility] 12 YRS+, BIVALENT Branch 0.3ML, IM, (PFIZER ARITA TOP BOOSTER) SARS-COV-2 COVID-19 2022-03-17 Completed Unive rsity of MIKE-SUCROSE VACCINE 00:00:00 [facility] 12 YRS+, BIVALENT Branch 0.3ML, IM, (PFIZER ARITA TOP BOOSTER) SARS-COV-2 COVID-19 2022-03-17 Completed Unive rsity of MIKE-SUCROSE VACCINE 00:00:00 [facility] 12 YRS+, BIVALENT Branch 0.3ML, IM, (PFIZER ARITA TOP BOOSTER) SARS-COV-2 COVID-19 2022-03-17 Completed Unive rsity of MIKE-SUCROSE VACCINE 00:00:00 [facility] 12 YRS+, BIVALENT Branch 0.3ML, IM, (PFIZER ARITA TOP BOOSTER) SARS-COV-2 COVID-19 2022-03-17 Completed Unive rsity of MIKE-SUCROSE VACCINE 00:00:00 [facility] 12 YRS+, BIVALENT Branch 0.3ML, IM, (PFIZER ARITA TOP BOOSTER) SARS-COV-2 COVID-19 2022-03-17 Completed Unive rsity of MIKE-SUCROSE VACCINE 00:00:00 [facility] 12 YRS+, BIVALENT Branch 0.3ML, IM, (PFIZER ARITA TOP BOOSTER) SARS-COV-2 COVID-19 2022-03-17 Completed Unive rsity of MIKE-SUCROSE VACCINE 00:00:00 [facility] 12 YRS+, BIVALENT Branch 0.3ML, IM, (PFIZER ARITA TOP BOOSTER) SARS-COV-2 COVID-19 2022-03-17 Completed Unive rsity of MIKE-SUCROSE VACCINE 00:00:00 [facility] 12 YRS+, BIVALENT Branch 0.3ML, IM, (PFIZER ARITA TOP BOOSTER) SARS-COV-2 COVID-19 2022-03-17 Completed Unive rsity of MIKE-SUCROSE VACCINE 00:00:00 [facility] 12 YRS+, BIVALENT Branch 0.3ML, IM, (PFIZER ARITA TOP BOOSTER) SARS-COV-2 COVID-19 2022-03-17 Completed Unive rsity of MIKE-SUCROSE VACCINE 00:00:00 [facility] 12 YRS+, BIVALENT Branch 0.3ML, IM, (PFIZER ARITA TOP BOOSTER) SARS-COV-2 COVID-19 2022-03-17 Completed Unive rsity of MIKE-SUCROSE VACCINE 00:00:00 [facility] 12 YRS+, BIVALENT Branch 0.3ML, IM, (PFIZER ARITA TOP BOOSTER) SARS-COV-2 COVID-19 2022-03-17 Completed Unive rsity of MIKE-SUCROSE VACCINE 00:00:00 [facility] 12 YRS+, BIVALENT Branch 0.3ML, IM, (PFIZER ARITA TOP BOOSTER) SARS-COV-2 COVID-19 2022-03-17 Completed Unive rsity of MIKE-SUCROSE VACCINE 00:00:00 [facility] 12 YRS+, BIVALENT Branch 0.3ML, IM, (PFIZER ARITA TOP BOOSTER) SARS-COV-2 COVID-19 2022-03-17 Completed Unive rsity of MIKE-SUCROSE VACCINE 00:00:00 [facility] 12 YRS+, BIVALENT Branch 0.3ML, IM, (PFIZER ARITA TOP BOOSTER) SARS-COV-2 COVID-19 2022-03-17 Completed Unive rsity of MIKE-SUCROSE VACCINE 00:00:00 [facility] 12 YRS+, BIVALENT Branch 0.3ML, IM, (PFIZER ARITA TOP BOOSTER) SARS-COV-2 COVID-19 2022-03-17 Completed Unive rsity of MIKE-SUCROSE VACCINE 00:00:00 [facility] 12 YRS+, BIVALENT Branch 0.3ML, IM, (PFIZER ARITA TOP BOOSTER) SARS-COV-2 COVID-19 2022-03-17 Completed Unive rsity of MIKE-SUCROSE VACCINE 00:00:00 [facility] 12 YRS+, BIVALENT Branch 0.3ML, IM, (PFIZER ARITA TOP BOOSTER) SARS-COV-2 COVID-19 2022-03-17 Completed Unive rsity of MIKE-SUCROSE VACCINE 00:00:00 [facility] 12 YRS+, BIVALENT Branch 0.3ML, IM, (PFIZER ARITA TOP BOOSTER) SARS-COV-2 COVID-19 2022-03-17 Completed Unive rsity of MIKE-SUCROSE VACCINE 00:00:00 [facility] 12 YRS+, BIVALENT Branch 0.3ML, IM, (PFIZER ARITA TOP BOOSTER) SARS-COV-2 COVID-19 2022-03-17 Completed Unive rsity of MIKE-SUCROSE VACCINE 00:00:00 [facility] 12 YRS+, BIVALENT Branch 0.3ML, IM, (PFIZER ARITA TOP BOOSTER) SARS-COV-2 COVID-19 2022-03-17 Completed Unive rsity of MIKE-SUCROSE VACCINE 00:00:00 [facility] 12 YRS+, BIVALENT Branch 0.3ML, IM, (PFIZER ARITA TOP) SARS-COV-2 COVID-19 2022-03-17 Completed Unive rsity of MIKE-SUCROSE VACCINE 00:00:00 [facility] 12 YRS+, BIVALENT Branch 0.3ML, IM, (PFIZER ARITA TOP) SARS-COV-2 COVID-19 2022-03-17 Completed Unive rsity of MIKE-SUCROSE VACCINE 00:00:00 [facility] 12 YRS+, BIVALENT Branch 0.3ML, IM, (PFIZER ARITA TOP) SARS-COV-2 COVID-19 2022-03-17 Completed Unive rsity of MIKE-SUCROSE VACCINE 00:00:00 [facility] 12 YRS+, BIVALENT Branch 0.3ML, IM, (PFIZER ARITA TOP) SARS-COV-2 COVID-19 2022-03-17 Completed Unive rsity of MIKE-SUCROSE VACCINE 00:00:00 [facility] 12 YRS+, BIVALENT Branch 0.3ML, IM, (PFIZER ARITA TOP) SARS-COV-2 COVID-19 2022-03-17 Completed Unive rsity of MIKE-SUCROSE VACCINE 00:00:00 [facility] 12 YRS+, BIVALENT Branch 0.3ML, IM, (PFIZER ARITA TOP) SARS-COV-2 COVID-19 2022-03-17 Completed Unive rsity of MIKE-SUCROSE VACCINE 00:00:00 [facility] 12 YRS+, BIVALENT Branch 0.3ML, IM, (PFIZER ARITA TOP) SARS-COV-2 COVID-19 2022-03-17 Completed Unive rsity of MIKE-SUCROSE VACCINE 00:00:00 [facility] 12 YRS+, BIVALENT Branch 0.3ML, IM, (PFIZER ARITA TOP) SARS-COV-2 COVID-19 2022-03-17 Completed Unive rsity of MIKE-SUCROSE VACCINE 00:00:00 [facility] 12 YRS+, BIVALENT Branch 0.3ML, IM, (PFIZER ARITA TOP) SARS-COV-2 COVID-19 2022-03-17 Completed Unive rsity of MIKE-SUCROSE VACCINE 00:00:00 [facility] 12 YRS+, BIVALENT Branch 0.3ML, IM, (PFIZER ARITA TOP) SARS-COV-2 COVID-19 2022-03-17 Completed Unive rsity of MIKE-SUCROSE VACCINE 00:00:00 [facility] 12 YRS+, BIVALENT Branch 0.3ML, IM, (PFIZER ARITA TOP) SARS-COV-2 COVID-19 2022-03-17 Completed Unive rsity of MIKE-SUCROSE VACCINE 00:00:00 [facility] 12 YRS+, BIVALENT Branch 0.3ML, IM, (PFIZER ARITA TOP) SARS-COV-2 COVID-19 2022-03-17 Completed Unive rsity of MIKE-SUCROSE VACCINE 00:00:00 [facility] 12 YRS+, BIVALENT Branch 0.3ML, IM, (PFIZER ARITA TOP) SARS-COV-2 COVID-19 2022-03-17 Completed Unive rsity of MIKE-SUCROSE VACCINE 00:00:00 [facility] 12 YRS+, BIVALENT Branch 0.3ML, IM, (PFIZER ARITA TOP) SARS-COV-2 COVID-19 2022-03-17 Completed Unive rsity of MIKE-SUCROSE VACCINE 00:00:00 [facility] 12 YRS+, BIVALENT Branch 0.3ML, IM, (PFIZER ARITA TOP) SARS-COV-2 COVID-19 2022-03-17 Completed Unive rsity of MIKE-SUCROSE VACCINE 00:00:00 [facility] 12 YRS+, BIVALENT Branch 0.3ML, IM, (PFIZER ARITA TOP) SARS-COV-2 COVID-19 2022-03-17 Completed Unive rsity of MIKE-SUCROSE VACCINE 00:00:00 [facility] 12 YRS+, BIVALENT Branch 0.3ML, IM, (PFIZER ARITA TOP) SARS-COV-2 COVID-19 2022-03-17 Completed Unive rsity of MIKE-SUCROSE VACCINE 00:00:00 [facility] 12 YRS+, BIVALENT Branch 0.3ML, IM, (PFIZER ARITA TOP) SARS-COV-2 COVID-19 2022-03-17 Completed Unive rsity of MIKE-SUCROSE VACCINE 00:00:00 [facility] 12 YRS+, BIVALENT Branch 0.3ML, IM, (PFIZER ARITA TOP) SARS-COV-2 COVID-19 2022-03-17 Completed Unive rsity of MIKE-SUCROSE VACCINE 00:00:00 [facility] 12 YRS+, BIVALENT Branch 0.3ML, IM, (PFIZER ARITA TOP) SARS-COV-2 COVID-19 2022-03-17 Completed Unive rsity of MIKE-SUCROSE VACCINE 00:00:00 [facility] 12 YRS+, BIVALENT Branch 0.3ML, IM, (PFIZER ARITA TOP) SARS-COV-2 COVID-19 2022-03-17 Completed Unive rsity of MIKE-SUCROSE VACCINE 00:00:00 [facility] 12 YRS+, BIVALENT Branch 0.3ML, IM, (PFIZER ARITA TOP) SARS-COV-2 COVID-19 2022-03-17 Completed Unive rsity of MIKE-SUCROSE VACCINE 00:00:00 [facility] 12 YRS+, BIVALENT Branch 0.3ML, IM, (PFIZER ARITA TOP) SARS-COV-2 COVID-19 2022-03-17 Completed Unive rsity of MIKE-SUCROSE VACCINE 00:00:00 [facility] 12 YRS+, BIVALENT Branch 0.3ML, IM, (PFIZER ARITA TOP) SARS-COV-2 COVID-19 2022-03-17 Completed Unive rsity of MIKE-SUCROSE VACCINE 00:00:00 [facility] 12 YRS+, BIVALENT Branch 0.3ML, IM, (PFIZER ARITA TOP) SARS-COV-2 COVID-19 2022-03-17 Completed Unive rsity of MIKE-SUCROSE VACCINE 00:00:00 [facility] 12 YRS+, BIVALENT Branch 0.3ML, IM, (PFIZER ARITA TOP) SARS-COV-2 COVID-19 2022-03-17 Completed Unive rsity of MIKE-SUCROSE VACCINE 00:00:00 [facility] 12 YRS+, BIVALENT Branch 0.3ML, IM, (PFIZER ARITA TOP) SARS-COV-2 COVID-19 2022-03-17 Completed Unive rsity of MIKE-SUCROSE VACCINE 00:00:00 [facility] 12 YRS+, BIVALENT Branch 0.3ML, IM, (PFIZER ARITA TOP) SARS-COV-2 COVID-19 2022-03-17 Completed Unive rsity of MIKE-SUCROSE VACCINE 00:00:00 [facility] 12 YRS+, BIVALENT Branch 0.3ML, IM, (PFIZER ARITA TOP) SARS-COV-2 COVID-19 2022-03-17 Completed Unive rsity of MIKE-SUCROSE VACCINE 00:00:00 [facility] 12 YRS+, BIVALENT Branch 0.3ML, IM, (PFIZER ARITA TOP) SARS-COV-2 COVID-19 2022-03-17 Completed Unive rsity of MIKE-SUCROSE VACCINE 00:00:00 [facility] 12 YRS+, BIVALENT Branch 0.3ML, IM, (PFIZER ARITA TOP) SARS-COV-2 COVID-19 2022-03-17 Completed Unive rsity of MIKE-SUCROSE VACCINE 00:00:00 [facility] 12 YRS+, BIVALENT Branch 0.3ML, IM, (PFIZER ARITA TOP) SARS-COV-2 COVID-19 2022-03-17 Completed Unive rsity of MIKE-SUCROSE VACCINE 00:00:00 [facility] 12 YRS+, BIVALENT Branch 0.3ML, IM, (PFIZER ARITA TOP) SARS-COV-2 COVID-19 2022-03-17 Completed [facility] of MIKE-SUCROSE VACCINE 00:00:00 [facility] 12 YRS+, BIVALENT Branch 0.3ML, IM, (PFIZER ARITA TOP) SARS-COV-2 COVID-19 2022-03-17 Completed [facility] of MIKE-SUCROSE VACCINE 00:00:00 [facility] 12 YRS+, BIVALENT Branch 0.3ML, IM, (PFIZER ARITA TOP) SARS-COV-2 COVID-19 2022-03-17 Completed [facility] of MIKE-SUCROSE VACCINE 00:00:00 [facility] 12 YRS+, BIVALENT Branch 0.3ML, IM, (PFIZER ARITA TOP) SARS-COV-2 COVID-19 2022-03-17 Completed [facility] of MIKE-SUCROSE VACCINE 00:00:00 [facility] 12 YRS+, BIVALENT Branch 0.3ML, IM, (PFIZER ARITA TOP) SARS-COV-2 COVID-19 2022-03-17 Completed [facility] of MIKE-SUCROSE VACCINE 00:00:00 [facility] 12 YRS+, BIVALENT Branch 0.3ML, IM, (PFIZER ARITA TOP) SARS-COV-2 COVID-19 2021-06-24 Completed [facility] of PFIZER VACCINE 00:00:00 [facility] SARS-COV-2 COVID-19 2021-06-24 Completed [facility] of PFIZER VACCINE 00:00:00 [facility] SARS-COV-2 COVID-19 2021-06-24 Completed [facility] of PFIZER VACCINE 00:00:00 [facility] SARS-COV-2 COVID-19 2021-06-24 Completed [facility] of PFIZER VACCINE 00:00:00 [facility] SARS-COV-2 COVID-19 2021-06-24 Completed [facility] of PFIZER VACCINE 00:00:00 [facility] SARS-COV-2 COVID-19 2021-06-24 Completed [facility] of PFIZER VACCINE 00:00:00 [facility] SARS-COV-2 COVID-19 2021-06-24 Completed [facility] of PFIZER VACCINE 00:00:00 [facility] SARS-COV-2 COVID-19 2021-06-24 Completed [facility] of PFIZER VACCINE 00:00:00 [facility] SARS-COV-2 COVID-19 2021-06-24 Completed [facility] of PFIZER VACCINE 00:00:00 [facility] SARS-COV-2 COVID-19 2021-06-24 Completed [facility] PFIZER VACCINE 00:00:00 [facility] SARS-COV-2 COVID-19 2021-06-24 Completed [facility] PFIZER VACCINE 00:00:00 [facility] SARS-COV-2 COVID-19 2021-06-24 Completed [facility] PFIZER VACCINE 00:00:00 [facility] SARS-COV-2 COVID-19 2021-06-24 Completed [facility] PFIZER VACCINE 00:00:00 [facility] SARS-COV-2 COVID-19 2021-06-24 Completed [facility] PFIZER VACCINE 00:00:00 [facility] SARS-COV-2 COVID-19 2021-06-24 Completed [facility] PFIZER VACCINE 00:00:00 [facility] SARS-COV-2 COVID-19 2021-06-24 Completed [facility] PFIZER VACCINE 00:00:00 [facility] SARS-COV-2 COVID-19 2021-06-24 Completed [facility] PFIZER VACCINE 00:00:00 [facility] SARS-COV-2 COVID-19 2021-06-24 Completed [facility] PFIZER VACCINE 00:00:00 [facility] SARS-COV-2 COVID-19 2021-06-24 Completed [facility] PFIZER VACCINE 00:00:00 [facility] SARS-COV-2 COVID-19 2021-06-24 Completed [facility] PFIZER VACCINE 00:00:00 [facility] SARS-COV-2 COVID-19 2021-06-24 Completed [facility] PFIZER VACCINE 00:00:00 [facility] SARS-COV-2 COVID-19 2021-06-24 Completed [facility] PFIZER VACCINE 00:00:00 [facility] SARS-COV-2 COVID-19 2021-06-24 Completed [facility] PFIZER VACCINE 00:00:00 [facility] SARS-COV-2 COVID-19 2021-06-24 Completed [facility] PFIZER VACCINE 00:00:00 [facility] SARS-COV-2 COVID-19 2021-06-24 Completed [facility] PFIZER VACCINE 00:00:00 [facility] SARS-COV-2 COVID-19 2021-06-24 Completed [facility] PFIZER VACCINE 00:00:00 [facility] SARS-COV-2 COVID-19 2021-06-24 Completed [facility] PFIZER VACCINE 00:00:00 [facility] SARS-COV-2 COVID-19 2021-06-24 Completed [facility] PFIZER VACCINE 00:00:00 [facility] SARS-COV-2 COVID-19 2021-06-24 Completed [facility] PFIZER VACCINE 00:00:00 [facility] SARS-COV-2 COVID-19 2021-06-24 Completed [facility] PFIZER VACCINE 00:00:00 [facility] SARS-COV-2 COVID-19 2021-06-24 Completed [facility] PFIZER VACCINE 00:00:00 [facility] SARS-COV-2 COVID-19 2021-06-24 Completed [facility] PFIZER VACCINE 00:00:00 [facility] SARS-COV-2 COVID-19 2021-06-24 Completed [facility] PFIZER VACCINE 00:00:00 [facility] SARS-COV-2 COVID-19 2021-06-24 Completed [facility] PFIZER VACCINE 00:00:00 [facility] SARS-COV-2 COVID-19 2021-06-24 Completed [facility] PFIZER VACCINE 00:00:00 [facility] SARS-COV-2 COVID-19 2021-06-24 Completed [facility] PFIZER VACCINE 00:00:00 [facility] SARS-COV-2 COVID-19 2021-06-24 Completed [facility] PFIZER VACCINE 00:00:00 [facility] SARS-COV-2 COVID-19 2021-06-24 Completed [facility] PFIZER VACCINE 00:00:00 [facility] SARS-COV-2 COVID-19 2021-06-24 Completed [facility] PFIZER VACCINE 00:00:00 [facility] SARS-COV-2 COVID-19 2021-06-24 Completed [facility] PFIZER VACCINE 00:00:00 [facility] SARS-COV-2 COVID-19 2021-06-24 Completed [facility] PFIZER VACCINE 00:00:00 [facility] SARS-COV-2 COVID-19 2021-06-24 Completed [facility] PFIZER VACCINE 00:00:00 [facility] SARS-COV-2 COVID-19 2021-06-24 Completed [facility] PFIZER VACCINE 00:00:00 [facility] SARS-COV-2 COVID-19 2021-06-24 Completed [facility] PFIZER VACCINE 00:00:00 [facility] SARS-COV-2 COVID-19 2021-06-24 Completed [facility] PFIZER VACCINE 00:00:00 [facility] SARS-COV-2 COVID-19 2021-06-24 Completed [facility] PFIZER VACCINE 00:00:00 [facility] SARS-COV-2 COVID-19 2021-06-24 Completed [facility] PFIZER VACCINE 00:00:00 [facility] SARS-COV-2 COVID-19 2021-06-24 Completed [facility] PFIZER VACCINE 00:00:00 [facility] SARS-COV-2 COVID-19 2021-06-24 Completed [facility] PFIZER VACCINE 00:00:00 [facility] SARS-COV-2 COVID-19 2021-06-24 Completed [facility] PFIZER VACCINE 00:00:00 [facility] SARS-COV-2 COVID-19 2021-06-24 Completed [facility] PFIZER VACCINE 00:00:00 [facility] SARS-COV-2 COVID-19 2021-06-24 Completed [facility] PFIZER VACCINE 00:00:00 [facility] SARS-COV-2 COVID-19 2021-06-24 Completed [facility] PFIZER VACCINE 00:00:00 [facility] SARS-COV-2 COVID-19 2021-06-24 Completed [facility] PFIZER VACCINE 00:00:00 [facility] SARS-COV-2 COVID-19 2021-06-24 Completed [facility] PFIZER VACCINE 00:00:00 [facility] SARS-COV-2 COVID-19 2021-06-24 Completed [facility] PFIZER VACCINE 00:00:00 [facility] SARS-COV-2 COVID-19 2021-06-24 Completed [facility] PFIZER VACCINE 00:00:00 [facility] SARS-COV-2 COVID-19 2021-06-24 Completed [facility] PFIZER VACCINE 00:00:00 [facility] SARS-COV-2 COVID-19 2021-06-24 Completed [facility] PFIZER VACCINE 00:00:00 [facility] SARS-COV-2 COVID-19 2021-06-24 Completed [facility] PFIZER VACCINE 00:00:00 [facility] SARS-COV-2 COVID-19 2021-06-24 Completed [facility] PFIZER VACCINE 00:00:00 [facility] SARS-COV-2 COVID-19 2021-06-24 Completed [facility] PFIZER VACCINE 00:00:00 [facility] SARS-COV-2 COVID-19 2021-06-24 Completed [facility] PFIZER VACCINE 00:00:00 [facility] SARS-COV-2 COVID-19 2021-06-24 Completed [facility] PFIZER VACCINE 00:00:00 [facility] SARS-COV-2 COVID-19 2021-06-24 Completed [facility] PFIZER VACCINE 00:00:00 [facility] SARS-COV-2 COVID-19 2021-06-24 Completed [facility] PFIZER VACCINE 00:00:00 [facility] SARS-COV-2 COVID-19 2021-06-24 Completed [facility] PFIZER VACCINE 00:00:00 [facility] SARS-COV-2 COVID-19 2021-06-24 Completed [facility] PFIZER VACCINE 00:00:00 [facility] SARS-COV-2 COVID-19 2021-06-24 Completed [facility] PFIZER VACCINE 00:00:00 [facility] SARS-COV-2 COVID-19 2021-06-24 Completed [facility] PFIZER VACCINE 00:00:00 [facility] SARS-COV-2 COVID-19 2021-06-24 Completed [facility] PFIZER VACCINE 00:00:00 [facility] SARS-COV-2 COVID-19 2021-06-24 Completed [facility] PFIZER VACCINE 00:00:00 [facility] SARS-COV-2 COVID-19 2021-06-24 Completed [facility] PFIZER VACCINE 00:00:00 [facility] SARS-COV-2 COVID-19 2021-06-24 Completed [facility] PFIZER VACCINE 00:00:00 [facility] SARS-COV-2 COVID-19 2021-06-24 Completed [facility] PFIZER VACCINE 00:00:00 [facility] SARS-COV-2 COVID-19 2021-06-24 Completed [facility] PFIZER VACCINE 00:00:00 [facility] SARS-COV-2 COVID-19 2021-06-24 Completed [facility] PFIZER VACCINE 00:00:00 [facility] SARS-COV-2 COVID-19 2021-06-24 Completed [facility] PFIZER VACCINE 00:00:00 [facility] SARS-COV-2 COVID-19 2021-06-24 Completed [facility] PFIZER VACCINE 00:00:00 [facility] SARS-COV-2 COVID-19 2021-06-24 Completed [facility] PFIZER VACCINE 00:00:00 [facility] SARS-COV-2 COVID-19 2021-06-24 Completed [facility] PFIZER VACCINE 00:00:00 [facility] SARS-COV-2 COVID-19 2021-06-24 Completed [facility] PFIZER VACCINE 00:00:00 [facility] SARS-COV-2 COVID-19 2021-06-24 Completed [facility] PFIZER VACCINE 00:00:00 [facility] SARS-COV-2 COVID-19 2021-06-24 Completed [facility] PFIZER VACCINE 00:00:00 [facility] SARS-COV-2 COVID-19 2021-06-24 Completed [facility] PFIZER VACCINE 00:00:00 [facility] SARS-COV-2 COVID-19 2021-06-24 Completed [facility]ACCINE 00:00:00 [facility] SARS-COV-2 COVID-19 2021-06-24 Completed [facility] PFIZER VACCINE 00:00:00 [facility] SARS-COV-2 COVID-19 2021-06-24 Completed [facility] PFIZER VACCINE 00:00:00 [facility] SARS-COV-2 COVID-19 2021-06-24 Completed [facility] PFIZER VACCINE 00:00:00 [facility] SARS-COV-2 COVID-19 2021-06-24 Completed [facility] PFIZER VACCINE 00:00:00 [facility] SARS-COV-2 COVID-19 2021-06-24 Completed [facility] PFIZER VACCINE 00:00:00 [facility] SARS-COV-2 COVID-19 2021-06-24 Completed [facility] PFIZER VACCINE 00:00:00 [facility] SARS-COV-2 COVID-19 2021-06-24 Completed [facility] PFIZER VACCINE 00:00:00 [facility] SARS-COV-2 COVID-19 2021-06-24 Completed [facility] PFIZER VACCINE 00:00:00 [facility] SARS-COV-2 COVID-19 2021-06-24 Completed [facility] PFIZER VACCINE 00:00:00 [facility] SARS-COV-2 COVID-19 2021-06-24 Completed [facility] PFIZER VACCINE 00:00:00 [facility] SARS-COV-2 COVID-19 2021-06-24 Completed [facility] PFIZER VACCINE 00:00:00 [facility] SARS-COV-2 COVID-19 2021-06-24 Completed [facility] PFIZER VACCINE 00:00:00 [facility] SARS-COV-2 COVID-19 2021-06-24 Completed [facility] PFIZER VACCINE 00:00:00 [facility] SARS-COV-2 COVID-19 2021-06-24 Completed [facility] PFIZER VACCINE 00:00:00 [facility] SARS-COV-2 COVID-19 2021-06-24 Completed [facility] PFIZER VACCINE 00:00:00 [facility] SARS-COV-2 COVID-19 2021-06-24 Completed [facility] PFIZER VACCINE 00:00:00 [facility] SARS-COV-2 COVID-19 2021-06-24 Completed [facility] PFIZER VACCINE 00:00:00 [facility] SARS-COV-2 COVID-19 2021-06-24 Completed [facility] PFIZER VACCINE 00:00:00 [facility] SARS-COV-2 COVID-19 2021-06-24 Completed [facility] PFIZER VACCINE 00:00:00 [facility] SARS-COV-2 COVID-19 2020-11-21 Completed [facility] PFIZER VACCINE 00:00:00 [facility] SARS-COV-2 COVID-19 2020-11-21 Completed [facility] PFIZER VACCINE 00:00:00 [facility] SARS-COV-2 COVID-19 2020-11-21 Completed [facility] PFIZER VACCINE 00:00:00 [facility] SARS-COV-2 COVID-19 2020-11-21 Completed [facility] PFIZER VACCINE 00:00:00 [facility] SARS-COV-2 COVID-19 2020-11-21 Completed [facility] PFIZER VACCINE 00:00:00 [facility] SARS-COV-2 COVID-19 2020-11-21 Completed [facility] PFIZER VACCINE 00:00:00 [facility] SARS-COV-2 COVID-19 2020-11-21 Completed [facility] PFIZER VACCINE 00:00:00 [facility] SARS-COV-2 COVID-19 2020-11-21 Completed [facility] PFIZER VACCINE 00:00:00 [facility] SARS-COV-2 COVID-19 2020-11-21 Completed [facility] PFIZER VACCINE 00:00:00 [facility] SARS-COV-2 COVID-19 2020-11-21 Completed [facility] PFIZER VACCINE 00:00:00 [facility] SARS-COV-2 COVID-19 2020-11-21 Completed [facility] PFIZER VACCINE 00:00:00 [facility] SARS-COV-2 COVID-19 2020-11-21 Completed [facility] PFIZER VACCINE 00:00:00 [facility] SARS-COV-2 COVID-19 2020-11-21 Completed [facility] PFIZER VACCINE 00:00:00 [facility] SARS-COV-2 COVID-19 2020-11-21 Completed [facility] PFIZER VACCINE 00:00:00 [facility] SARS-COV-2 COVID-19 2020-11-21 Completed [facility] PFIZER VACCINE 00:00:00 [facility] SARS-COV-2 COVID-19 2020-11-21 Completed [facility] PFIZER VACCINE 00:00:00 [facility] SARS-COV-2 COVID-19 2020-11-21 Completed [facility] PFIZER VACCINE 00:00:00 [facility] SARS-COV-2 COVID-19 2020-11-21 Completed [facility] PFIZER VACCINE 00:00:00 [facility] SARS-COV-2 COVID-19 2020-11-21 Completed [facility] PFIZER VACCINE 00:00:00 [facility] SARS-COV-2 COVID-19 2020-11-21 Completed [facility] PFIZER VACCINE 00:00:00 [facility] SARS-COV-2 COVID-19 2020-11-21 Completed [facility] PFIZER VACCINE 00:00:00 [facility] SARS-COV-2 COVID-19 2020-11-21 Completed [facility] PFIZER VACCINE 00:00:00 [facility] SARS-COV-2 COVID-19 2020-11-21 Completed [facility] PFIZER VACCINE 00:00:00 [facility] SARS-COV-2 COVID-19 2020-11-21 Completed [facility] PFIZER VACCINE 00:00:00 [facility] SARS-COV-2 COVID-19 2020-11-21 Completed [facility] PFIZER VACCINE 00:00:00 [facility] SARS-COV-2 COVID-19 2020-11-21 Completed [facility] PFIZER VACCINE 00:00:00 [facility] SARS-COV-2 COVID-19 2020-11-21 Completed [facility] PFIZER VACCINE 00:00:00 [facility] SARS-COV-2 COVID-19 2020-11-21 Completed [facility] PFIZER VACCINE 00:00:00 [facility] SARS-COV-2 COVID-19 2020-11-21 Completed [facility] PFIZER VACCINE 00:00:00 [facility] SARS-COV-2 COVID-19 2020-11-21 Completed [facility] PFIZER VACCINE 00:00:00 [facility] SARS-COV-2 COVID-19 2020-11-21 Completed [facility] PFIZER VACCINE 00:00:00 [facility] SARS-COV-2 COVID-19 2020-11-21 Completed [facility] PFIZER VACCINE 00:00:00 [facility] SARS-COV-2 COVID-19 2020-11-21 Completed [facility] PFIZER VACCINE 00:00:00 [facility] SARS-COV-2 COVID-19 2020-11-21 Completed [facility] PFIZER VACCINE 00:00:00 [facility] SARS-COV-2 COVID-19 2020-11-21 Completed [facility] PFIZER VACCINE 00:00:00 [facility] SARS-COV-2 COVID-19 2020-11-21 Completed [facility] PFIZER VACCINE 00:00:00 [facility] SARS-COV-2 COVID-19 2020-11-21 Completed [facility] PFIZER VACCINE 00:00:00 [facility] SARS-COV-2 COVID-19 2020-11-21 Completed [facility] PFIZER VACCINE 00:00:00 [facility] SARS-COV-2 COVID-19 2020-11-21 Completed [facility] PFIZER VACCINE 00:00:00 [facility] SARS-COV-2 COVID-19 2020-11-21 Completed [facility] PFIZER VACCINE 00:00:00 [facility] SARS-COV-2 COVID-19 2020-11-21 Completed [facility] PFIZER VACCINE 00:00:00 [facility] SARS-COV-2 COVID-19 2020-11-21 Completed [facility] PFIZER VACCINE 00:00:00 [facility] SARS-COV-2 COVID-19 2020-11-21 Completed [facility] PFIZER VACCINE 00:00:00 [facility] SARS-COV-2 COVID-19 2020-11-21 Completed [facility] PFIZER VACCINE 00:00:00 [facility] SARS-COV-2 COVID-19 2020-11-21 Completed [facility] PFIZER VACCINE 00:00:00 [facility] SARS-COV-2 COVID-19 2020-11-21 Completed [facility] PFIZER VACCINE 00:00:00 [facility] SARS-COV-2 COVID-19 2020-11-21 Completed [facility] PFIZER VACCINE 00:00:00 [facility] SARS-COV-2 COVID-19 2020-11-21 Completed [facility] PFIZER VACCINE 00:00:00 [facility] SARS-COV-2 COVID-19 2020-11-21 Completed [facility] PFIZER VACCINE 00:00:00 [facility] SARS-COV-2 COVID-19 2020-11-21 Completed [facility] PFIZER VACCINE 00:00:00 [facility] SARS-COV-2 COVID-19 2020-11-21 Completed [facility] PFIZER VACCINE 00:00:00 [facility] SARS-COV-2 COVID-19 2020-11-21 Completed [facility] PFIZER VACCINE 00:00:00 [facility] SARS-COV-2 COVID-19 2020-11-21 Completed [facility] PFIZER VACCINE 00:00:00 [facility] SARS-COV-2 COVID-19 2020-11-21 Completed [facility] PFIZER VACCINE 00:00:00 [facility] SARS-COV-2 COVID-19 2020-11-21 Completed [facility] PFIZER VACCINE 00:00:00 [facility] SARS-COV-2 COVID-19 2020-11-21 Completed [facility] PFIZER VACCINE 00:00:00 [facility] SARS-COV-2 COVID-19 2020-11-21 Completed [facility] PFIZER VACCINE 00:00:00 [facility] SARS-COV-2 COVID-19 2020-11-21 Completed [facility] PFIZER VACCINE 00:00:00 [facility] SARS-COV-2 COVID-19 2020-11-21 Completed [facility] PFIZER VACCINE 00:00:00 [facility] SARS-COV-2 COVID-19 2020-11-21 Completed [facility] PFIZER VACCINE 00:00:00 [facility] SARS-COV-2 COVID-19 2020-11-21 Completed [facility] PFIZER VACCINE 00:00:00 [facility] SARS-COV-2 COVID-19 2020-11-21 Completed [facility] PFIZER VACCINE 00:00:00 [facility] SARS-COV-2 COVID-19 2020-11-21 Completed [facility] PFIZER VACCINE 00:00:00 [facility] SARS-COV-2 COVID-19 2020-11-21 Completed [facility] PFIZER VACCINE 00:00:00 [facility] SARS-COV-2 COVID-19 2020-11-21 Completed [facility] PFIZER VACCINE 00:00:00 [facility] SARS-COV-2 COVID-19 2020-11-21 Completed [facility] PFIZER VACCINE 00:00:00 [facility] SARS-COV-2 COVID-19 2020-11-21 Completed [facility] PFIZER VACCINE 00:00:00 [facility] SARS-COV-2 COVID-19 2020-11-21 Completed [facility] PFIZER VACCINE 00:00:00 [facility] SARS-COV-2 COVID-19 2020-11-21 Completed [facility] PFIZER VACCINE 00:00:00 [facility] SARS-COV-2 COVID-19 2020-11-21 Completed [facility] PFIZER VACCINE 00:00:00 [facility] SARS-COV-2 COVID-19 2020-11-21 Completed [facility] PFIZER VACCINE 00:00:00 [facility] SARS-COV-2 COVID-19 2020-11-21 Completed [facility] PFIZER VACCINE 00:00:00 [facility] SARS-COV-2 COVID-19 2020-11-21 Completed [facility] PFIZER VACCINE 00:00:00 [facility] SARS-COV-2 COVID-19 2020-11-21 Completed [facility] PFIZER VACCINE 00:00:00 [facility] SARS-COV-2 COVID-19 2020-11-21 Completed [facility] PFIZER VACCINE 00:00:00 [facility] SARS-COV-2 COVID-19 2020-11-21 Completed [facility] PFIZER VACCINE 00:00:00 [facility] SARS-COV-2 COVID-19 2020-11-21 Completed [facility] PFIZER VACCINE 00:00:00 [facility] SARS-COV-2 COVID-19 2020-11-21 Completed [facility] PFIZER VACCINE 00:00:00 [facility] SARS-COV-2 COVID-19 2020-11-21 Completed [facility] PFIZER VACCINE 00:00:00 [facility] SARS-COV-2 COVID-19 2020-11-21 Completed [facility] PFIZER VACCINE 00:00:00 [facility] SARS-COV-2 COVID-19 2020-11-21 Completed [facility] PFIZER VACCINE 00:00:00 [facility] SARS-COV-2 COVID-19 2020-11-21 Completed [facility] PFIZER VACCINE 00:00:00 [facility] SARS-COV-2 COVID-19 2020-11-21 Completed [facility] PFIZER VACCINE 00:00:00 [facility] SARS-COV-2 COVID-19 2020-11-21 Completed [facility] PFIZER VACCINE 00:00:00 [facility] SARS-COV-2 COVID-19 2020-11-21 Completed [facility] PFIZER VACCINE 00:00:00 [facility] SARS-COV-2 COVID-19 2020-11-21 Completed [facility] PFIZER VACCINE 00:00:00 [facility] SARS-COV-2 COVID-19 2020-11-21 Completed [facility] PFIZER VACCINE 00:00:00 [facility] SARS-COV-2 COVID-19 2020-11-21 Completed [facility] PFIZER VACCINE 00:00:00 [facility] SARS-COV-2 COVID-19 2020-11-21 Completed [facility] PFIZER VACCINE 00:00:00 [facility] SARS-COV-2 COVID-19 2020-11-21 Completed [facility] PFIZER VACCINE 00:00:00 [facility] SARS-COV-2 COVID-19 2020-11-21 Completed [facility] PFIZER VACCINE 00:00:00 [facility] SARS-COV-2 COVID-19 2020-11-21 Completed [facility] PFIZER VACCINE 00:00:00 [facility] SARS-COV-2 COVID-19 2020-11-21 Completed [facility] PFIZER VACCINE 00:00:00 [facility] SARS-COV-2 COVID-19 2020-11-21 Completed [facility] PFIZER VACCINE 00:00:00 [facility] SARS-COV-2 COVID-19 2020-11-21 Completed [facility] PFIZER VACCINE 00:00:00 [facility] SARS-COV-2 COVID-19 2020-11-21 Completed [facility] PFIZER VACCINE 00:00:00 [facility] SARS-COV-2 COVID-19 2020-11-21 Completed [facility] PFIZER VACCINE 00:00:00 [facility] SARS-COV-2 COVID-19 2020-11-21 Completed [facility] PFIZER VACCINE 00:00:00 [facility] SARS-COV-2 COVID-19 2020-11-21 Completed [facility] PFIZER VACCINE 00:00:00 [facility] SARS-COV-2 COVID-19 2020-11-21 Completed [facility] PFIZER VACCINE 00:00:00 [facility] SARS-COV-2 COVID-19 2020-11-21 Completed [facility] PFIZER VACCINE 00:00:00 [facility] SARS-COV-2 COVID-19 2020-11-21 Completed [facility] PFIZER VACCINE 00:00:00 [facility] SARS-COV-2 COVID-19 2020-11-21 Completed [facility] PFIZER VACCINE 00:00:00 [facility] SARS-COV-2 COVID-19 2020-11-21 Completed [facility] PFIZER VACCINE 00:00:00 [facility] SARS-COV-2 COVID-19 2020-11-21 Completed [facility] PFIZER VACCINE 00:00:00 [facility] SARS-COV-2 COVID-19 2020-10-24 Completed [facility] PFIZER VACCINE 00:00:00 [facility] SARS-COV-2 COVID-19 2020-10-24 Completed [facility] PFIZER VACCINE 00:00:00 [facility] SARS-COV-2 COVID-19 2020-10-24 Completed [facility] PFIZER VACCINE 00:00:00 [facility] SARS-COV-2 COVID-19 2020-10-24 Completed [facility] PFIZER VACCINE 00:00:00 [facility] SARS-COV-2 COVID-19 2020-10-24 Completed [facility] PFIZER VACCINE 00:00:00 [facility] SARS-COV-2 COVID-19 2020-10-24 Completed [facility] PFIZER VACCINE 00:00:00 [facility] SARS-COV-2 COVID-19 2020-10-24 Completed [facility] PFIZER VACCINE 00:00:00 [facility] SARS-COV-2 COVID-19 2020-10-24 Completed [facility] PFIZER VACCINE 00:00:00 [facility] SARS-COV-2 COVID-19 2020-10-24 Completed [facility] PFIZER VACCINE 00:00:00 [facility] SARS-COV-2 COVID-19 2020-10-24 Completed [facility] PFIZER VACCINE 00:00:00 [facility] SARS-COV-2 COVID-19 2020-10-24 Completed [facility] PFIZER VACCINE 00:00:00 [facility] SARS-COV-2 COVID-19 2020-10-24 Completed [facility] PFIZER VACCINE 00:00:00 [facility] SARS-COV-2 COVID-19 2020-10-24 Completed [facility] PFIZER VACCINE 00:00:00 [facility] SARS-COV-2 COVID-19 2020-10-24 Completed [facility] PFIZER VACCINE 00:00:00 [facility] SARS-COV-2 COVID-19 2020-10-24 Completed [facility] PFIZER VACCINE 00:00:00 [facility] SARS-COV-2 COVID-19 2020-10-24 Completed [facility] PFIZER VACCINE 00:00:00 [facility] SARS-COV-2 COVID-19 2020-10-24 Completed [facility] PFIZER VACCINE 00:00:00 [facility] SARS-COV-2 COVID-19 2020-10-24 Completed [facility] PFIZER VACCINE 00:00:00 [facility] SARS-COV-2 COVID-19 2020-10-24 Completed [facility] PFIZER VACCINE 00:00:00 [facility] SARS-COV-2 COVID-19 2020-10-24 Completed [facility] PFIZER VACCINE 00:00:00 [facility] SARS-COV-2 COVID-19 2020-10-24 Completed [facility] PFIZER VACCINE 00:00:00 [facility] SARS-COV-2 COVID-19 2020-10-24 Completed [facility] PFIZER VACCINE 00:00:00 [facility] SARS-COV-2 COVID-19 2020-10-24 Completed [facility] PFIZER VACCINE 00:00:00 [facility] SARS-COV-2 COVID-19 2020-10-24 Completed [facility] PFIZER VACCINE 00:00:00 [facility] SARS-COV-2 COVID-19 2020-10-24 Completed [facility] PFIZER VACCINE 00:00:00 [facility] SARS-COV-2 COVID-19 2020-10-24 Completed [facility] PFIZER VACCINE 00:00:00 [facility] SARS-COV-2 COVID-19 2020-10-24 Completed [facility] PFIZER VACCINE 00:00:00 [facility] SARS-COV-2 COVID-19 2020-10-24 Completed [facility] PFIZER VACCINE 00:00:00 [facility] SARS-COV-2 COVID-19 2020-10-24 Completed [facility] PFIZER VACCINE 00:00:00 [facility] SARS-COV-2 COVID-19 2020-10-24 Completed [facility] PFIZER VACCINE 00:00:00 [facility] SARS-COV-2 COVID-19 2020-10-24 Completed [facility] PFIZER VACCINE 00:00:00 [facility] SARS-COV-2 COVID-19 2020-10-24 Completed [facility] PFIZER VACCINE 00:00:00 [facility] SARS-COV-2 COVID-19 2020-10-24 Completed [facility] PFIZER VACCINE 00:00:00 [facility] SARS-COV-2 COVID-19 2020-10-24 Completed [facility] PFIZER VACCINE 00:00:00 [facility] SARS-COV-2 COVID-19 2020-10-24 Completed [facility] PFIZER VACCINE 00:00:00 [facility] SARS-COV-2 COVID-19 2020-10-24 Completed [facility] PFIZER VACCINE 00:00:00 [facility] SARS-COV-2 COVID-19 2020-10-24 Completed [facility] PFIZER VACCINE 00:00:00 [facility] SARS-COV-2 COVID-19 2020-10-24 Completed [facility] PFIZER VACCINE 00:00:00 [facility] SARS-COV-2 COVID-19 2020-10-24 Completed [facility] PFIZER VACCINE 00:00:00 [facility] SARS-COV-2 COVID-19 2020-10-24 Completed [facility] PFIZER VACCINE 00:00:00 [facility] SARS-COV-2 COVID-19 2020-10-24 Completed [facility] PFIZER VACCINE 00:00:00 [facility] SARS-COV-2 COVID-19 2020-10-24 Completed [facility] PFIZER VACCINE 00:00:00 [facility] SARS-COV-2 COVID-19 2020-10-24 Completed [facility] PFIZER VACCINE 00:00:00 [facility] SARS-COV-2 COVID-19 2020-10-24 Completed [facility] PFIZER VACCINE 00:00:00 [facility] SARS-COV-2 COVID-19 2020-10-24 Completed [facility] PFIZER VACCINE 00:00:00 [facility] SARS-COV-2 COVID-19 2020-10-24 Completed [facility] PFIZER VACCINE 00:00:00 [facility] SARS-COV-2 COVID-19 2020-10-24 Completed [facility] PFIZER VACCINE 00:00:00 [facility] SARS-COV-2 COVID-19 2020-10-24 Completed [facility] PFIZER VACCINE 00:00:00 [facility] SARS-COV-2 COVID-19 2020-10-24 Completed [facility] PFIZER VACCINE 00:00:00 [facility] SARS-COV-2 COVID-19 2020-10-24 Completed [facility] PFIZER VACCINE 00:00:00 [facility] SARS-COV-2 COVID-19 2020-10-24 Completed [facility] PFIZER VACCINE 00:00:00 [facility] SARS-COV-2 COVID-19 2020-10-24 Completed [facility] PFIZER VACCINE 00:00:00 [facility] SARS-COV-2 COVID-19 2020-10-24 Completed [facility] PFIZER VACCINE 00:00:00 [facility] SARS-COV-2 COVID-19 2020-10-24 Completed [facility] PFIZER VACCINE 00:00:00 [facility] SARS-COV-2 COVID-19 2020-10-24 Completed [facility] PFIZER VACCINE 00:00:00 [facility] SARS-COV-2 COVID-19 2020-10-24 Completed [facility] PFIZER VACCINE 00:00:00 [facility] SARS-COV-2 COVID-19 2020-10-24 Completed [facility] PFIZER VACCINE 00:00:00 [facility] SARS-COV-2 COVID-19 2020-10-24 Completed [facility] PFIZER VACCINE 00:00:00 [facility] SARS-COV-2 COVID-19 2020-10-24 Completed [facility] PFIZER VACCINE 00:00:00 [facility] SARS-COV-2 COVID-19 2020-10-24 Completed [facility] PFIZER VACCINE 00:00:00 [facility] SARS-COV-2 COVID-19 2020-10-24 Completed [facility] PFIZER VACCINE 00:00:00 [facility] SARS-COV-2 COVID-19 2020-10-24 Completed [facility] PFIZER VACCINE 00:00:00 [facility] SARS-COV-2 COVID-19 2020-10-24 Completed [facility] PFIZER VACCINE 00:00:00 [facility] SARS-COV-2 COVID-19 2020-10-24 Completed [facility] PFIZER VACCINE 00:00:00 [facility] SARS-COV-2 COVID-19 2020-10-24 Completed [facility] PFIZER VACCINE 00:00:00 [facility] SARS-COV-2 COVID-19 2020-10-24 Completed [facility] PFIZER VACCINE 00:00:00 [facility] SARS-COV-2 COVID-19 2020-10-24 Completed [facility] PFIZER VACCINE 00:00:00 [facility] SARS-COV-2 COVID-19 2020-10-24 Completed [facility] PFIZER VACCINE 00:00:00 [facility] SARS-COV-2 COVID-19 2020-10-24 Completed [facility] PFIZER VACCINE 00:00:00 [facility] SARS-COV-2 COVID-19 2020-10-24 Completed [facility] PFIZER VACCINE 00:00:00 [facility] SARS-COV-2 COVID-19 2020-10-24 Completed [facility] PFIZER VACCINE 00:00:00 [facility] SARS-COV-2 COVID-19 2020-10-24 Completed [facility] PFIZER VACCINE 00:00:00 [facility] SARS-COV-2 COVID-19 2020-10-24 Completed [facility] PFIZER VACCINE 00:00:00 [facility] SARS-COV-2 COVID-19 2020-10-24 Completed [facility] PFIZER VACCINE 00:00:00 [facility] SARS-COV-2 COVID-19 2020-10-24 Completed [facility] PFIZER VACCINE 00:00:00 [facility] SARS-COV-2 COVID-19 2020-10-24 Completed [facility] PFIZER VACCINE 00:00:00 [facility] SARS-COV-2 COVID-19 2020-10-24 Completed [facility] PFIZER VACCINE 00:00:00 [facility] SARS-COV-2 COVID-19 2020-10-24 Completed [facility] PFIZER VACCINE 00:00:00 [facility] SARS-COV-2 COVID-19 2020-10-24 Completed [facility] PFIZER VACCINE 00:00:00 [facility] SARS-COV-2 COVID-19 2020-10-24 Completed [facility] PFIZER VACCINE 00:00:00 [facility] SARS-COV-2 COVID-19 2020-10-24 Completed [facility] PFIZER VACCINE 00:00:00 [facility] SARS-COV-2 COVID-19 2020-10-24 Completed [facility] PFIZER VACCINE 00:00:00 [facility] SARS-COV-2 COVID-19 2020-10-24 Completed [facility] PFIZER VACCINE 00:00:00 [facility] SARS-COV-2 COVID-19 2020-10-24 Completed [facility] PFIZER VACCINE 00:00:00 [facility] SARS-COV-2 COVID-19 2020-10-24 Completed [facility] PFIZER VACCINE 00:00:00 [facility] SARS-COV-2 COVID-19 2020-10-24 Completed [facility] PFIZER VACCINE 00:00:00 [facility] SARS-COV-2 COVID-19 2020-10-24 Completed [facility] PFIZER VACCINE 00:00:00 [facility] SARS-COV-2 COVID-19 2020-10-24 Completed [facility] PFIZER VACCINE 00:00:00 [facility] SARS-COV-2 COVID-19 2020-10-24 Completed [facility] PFIZER VACCINE 00:00:00 [facility] SARS-COV-2 COVID-19 2020-10-24 Completed [facility] PFIZER VACCINE 00:00:00 [facility] SARS-COV-2 COVID-19 2020-10-24 Completed [facility] PFIZER VACCINE 00:00:00 [facility] SARS-COV-2 COVID-19 2020-10-24 Completed [facility] PFIZER VACCINE 00:00:00 [facility] SARS-COV-2 COVID-19 2020-10-24 Completed [facility] PFIZER VACCINE 00:00:00 [facility] SARS-COV-2 COVID-19 2020-10-24 Completed [facility] PFIZER VACCINE 00:00:00 [facility] SARS-COV-2 COVID-19 2020-10-24 Completed [facility] PFIZER VACCINE 00:00:00 [facility] SARS-COV-2 COVID-19 2020-10-24 Completed [facility] PFIZER VACCINE 00:00:00 [facility] SARS-COV-2 COVID-19 2020-10-24 Completed [facility] PFIZER VACCINE 00:00:00 [facility] SARS-COV-2 COVID-19 2020-10-24 Completed [facility] PFIZER VACCINE 00:00:00 [facility] SARS-COV-2 COVID-19 2020-10-24 Completed [facility] PFIZER VACCINE 00:00:00 [facility] SARS-COV-2 COVID-19 2020-10-24 Completed [facility] PFIZER VACCINE 00:00:00 [facility] SARS-COV-2 COVID-19 2020-10-24 Completed [facility] PFIZER VACCINE 00:00:00 [facility] SARS-COV-2 COVID-19 2020-10-24 Completed [facility] PFIZER VACCINE 00:00:00 [facility] SARS-COV-2 COVID-19 2020-10-24 Completed [facility] PFIZER VACCINE 00:00:00 [facility] SARS-COV-2 COVID-19 2020-10-24 Completed [facility] PFIZER VACCINE 00:00:00 [facility] SARS-COV-2 COVID-19 2020-10-24 Completed [facility] PFIZER VACCINE 00:00:00 [facility] Influenza Virus 2020-07-08 Completed [facility] .[facility] 00[facility]00:00 [facility] Influenza Virus 2020-07-08 Completed [facility] .5 mL 00:00:00 [facility] Influenza Virus 2020-07-08 Completed [facility] .5 mL 00:00:00 [facility] Influenza Virus 2020-07-08 Completed [facility] .5 mL 00:00:00 [facility] Influenza Virus 2020-07-08 Completed [facility] .5 mL 00:00:00 [facility] Influenza Virus 2020-07-08 Completed [facility] .5 mL 00:00:00 [facility] Influenza Virus 2020-07-08 Completed [facility] .5 mL 00:00:00 [facility] Influenza Virus 2020-07-08 Completed [facility] .5 mL 00:00:00 [facility] Influenza Virus 2020-07-08 Completed [facility] .5 mL 00:00:00 [facility] Influenza Virus 2020-07-08 Completed [facility] .5 mL 00:00:00 [facility] Influenza Virus 2020-07-08 Completed [facility] .5 mL 00:00:00 [facility] Influenza Virus 2020-07-08 Completed [facility] .5 mL 00:00:00 [facility] Influenza Virus 2020-07-08 Completed [facility] .5 mL 00:00:00 [facility] Influenza Virus 2020-07-08 Completed [facility] .5 mL 00:00:00 [facility] Influenza Virus 2020-07-08 Completed [facility] .5 mL 00:00:00 [facility] Influenza Virus 2020-07-08 Completed [facility] .5 mL 00:00:00 [facility] Influenza Virus 2020-07-08 Completed [facility] .5 mL 00:00:00 [facility] Influenza Virus 2020-07-08 Completed [facility] .5 mL 00:00:00 [facility] Influenza Virus 2020-07-08 Completed [facility] .5 mL 00:00:00 [facility] Influenza Virus 2020-07-08 Completed [facility] .5 mL 00:00:00 [facility] Influenza Virus 2020-07-08 Completed [facility] .5 mL 00:00:00 [facility] Influenza Virus 2020-07-08 Completed [facility] .5 mL 00:00:00 [facility] Influenza Virus 2020-07-08 Completed [facility] .5 mL 00:00:00 [facility] Influenza Virus 2020-07-08 Completed [facility] .5 mL 00:00:00 [facility] Influenza Virus 2020-07-08 Completed [facility] .5 mL 00:00:00 [facility] Influenza Virus 2020-07-08 Completed [facility] .5 mL 00:00:00 [facility] Influenza Virus 2020-07-08 Completed [facility] .5 mL 00:00:00 [facility] Influenza Virus 2020-07-08 Completed [facility] .5 mL 00:00:00 [facility] Influenza Virus 2020-07-08 Completed [facility] .5 mL 00:00:00 [facility] Influenza Virus 2020-07-08 Completed [facility] .5 mL 00:00:00 [facility] Influenza Virus 2020-07-08 Completed [facility] .5 mL 00:00:00 [facility] Influenza Virus 2020-07-08 Completed [facility] .5 mL 00:00:00 [facility] Influenza Virus 2020-07-08 Completed [facility] .5 mL 00:00:00 [facility] Influenza Virus 2020-07-08 Completed [facility] .5 mL 00:00:00 [facility] Influenza Virus 2020-07-08 Completed [facility] .5 mL 00:00:00 [facility] Influenza Virus 2020-07-08 Completed [facility] .5 mL 00:00:00 [facility] Influenza Virus 2020-07-08 Completed [facility] .5 mL 00:00:00 [facility] Influenza Virus 2020-07-08 Completed [facility] .5 mL 00:00:00 [facility] Influenza Virus 2020-07-08 Completed [facility] .5 mL 00:00:00 [facility] Influenza Virus 2020-07-08 Completed [facility] .5 mL 00:00:00 [facility] Influenza Virus 2020-07-08 Completed [facility] .5 mL 00:00:00 [facility] Influenza Virus 2020-07-08 Completed [facility] .5 mL 00:00:00 [facility] Influenza Virus 2020-07-08 Completed [facility] .5 mL 00:00:00 [facility] Influenza Virus 2020-07-08 Completed [facility] .5 mL 00:00:00 [facility] Influenza Virus 2020-07-08 Completed [facility] .5 mL 00:00:00 [facility] Influenza Virus 2020-07-08 Completed [facility] .5 mL 00:00:00 [facility] Influenza Virus 2020-07-08 Completed [facility] .5 mL 00:00:00 [facility] Influenza Virus 2020-07-08 Completed [facility] .5 mL 00:00:00 [facility] Influenza Virus 2020-07-08 Completed [facility] .5 mL 00:00:00 [facility] Influenza Virus 2020-07-08 Completed [facility] .5 mL 00:00:00 [facility] Influenza Virus 2020-07-08 Completed [facility] .5 mL 00:00:00 [facility] Influenza Virus 2020-07-08 Completed [facility] .5 mL 00:00:00 [facility] Influenza Virus 2020-07-08 Completed [facility] .5 mL 00:00:00 [facility] Influenza Virus 2020-07-08 Completed [facility] .5 mL 00:00:00 [facility] Influenza Virus 2020-07-08 Completed [facility] .5 mL 00:00:00 [facility] Influenza Virus 2020-07-08 Completed [facility] .5 mL 00:00:00 [facility] Influenza Virus 2020-07-08 Completed [facility] .5 mL 00:00:00 [facility] Influenza Virus 2020-07-08 Completed [facility] .5 mL 00:00:00 [facility] Influenza Virus 2020-07-08 Completed [facility] .5 mL 00:00:00 [facility] Influenza Virus 2020-07-08 Completed [facility] .5 mL 00:00:00 [facility] Influenza Virus 2020-07-08 Completed [facility] .5 mL 00:00:00 [facility] Influenza Virus 2020-07-08 Completed [facility] .5 mL 00:00:00 [facility] Influenza Virus 2020-07-08 Completed [facility] .5 mL 00:00:00 [facility] Influenza Virus 2020-07-08 Completed [facility] .5 mL 00:00:00 [facility] Influenza Virus 2020-07-08 Completed [facility] .5 mL 00:00:00 [facility] Influenza Virus 2020-07-08 Completed [facility] .5 mL 00:00:00 [facility] Influenza Virus 2020-07-08 Completed [facility] .5 mL 00:00:00 [facility] Influenza Virus 2020-07-08 Completed [facility] .5 mL 00:00:00 [facility] Influenza Virus 2020-07-08 Completed [facility] .5 mL 00:00:00 [facility] Influenza Virus 2020-07-08 Completed [facility] .5 mL 00:00:00 [facility] Influenza Virus 2020-07-08 Completed [facility] .5 mL 00:00:00 [facility] Influenza Virus 2020-07-08 Completed [facility] .5 mL 00:00:00 [facility] Influenza Virus 2020-07-08 Completed [facility] .5 mL 00:00:00 [facility] Influenza Virus 2020-07-08 Completed [facility] .5 mL 00:00:00 [facility] Influenza Virus 2020-07-08 Completed [facility] .5 mL 00:00:00 [facility] Influenza Virus 2020-07-08 Completed [facility] .5 mL 00:00:00 [facility] Influenza Virus 2020-07-08 Completed [facility] .5 mL 00:00:00 [facility] Influenza Virus 2020-07-08 Completed [facility] .5 mL 00:00:00 [facility] Influenza Virus 2020-07-08 Completed [facility] .5 mL 00:00:00 [facility] Influenza Virus 2020-07-08 Completed [facility] .5 mL 00:00:00 [facility] Influenza Virus 2020-07-08 Completed [facility] .5 mL 00:00:00 [facility] Influenza Virus 2020-07-08 Completed [facility] .5 mL 00:00:00 [facility] [facility] Influenza Virus 2020-07-08 Completed [facility] .[facility] 00:00:00 [facility] 6[facility] MO [facility] Influenza Virus 2020-07-08 Completed [facility] .5 mL 00:00:00 [facility] 6[facility] MO [facility] Influenza Virus 2020-07-08 Completed [facility] .5 mL 00:00:00 [facility] 6[facility] MO [facility] Influenza Virus 2020-07-08 Completed [facility] .5 mL 00:00:00 [facility] 6[facility] MO [facility] Influenza Virus 2020-07-08 Completed [facility] .5 mL 00:00:00 [facility] 6[facility] MO [facility] Influenza Virus 2020-07-08 Completed [facility] .5 mL 00:00:00 [facility] 6[facility] MO [facility] Influenza Virus 2020-07-08 Completed [facility] .5 mL 00:00:00 [facility] 6[facility] MO [facility] Influenza Virus 2020-07-08 Completed [facility] .5 mL 00:00:00 [facility] 6[facility] MO [facility] Influenza Virus 2020-07-08 Completed [facility] .5 mL 00:00:00 [facility] 6[facility] MO [facility] Influenza Virus 2020-07-08 Completed [facility] .5 mL 00:00:00 [facility] 6[facility] MO [facility] Influenza Virus 2020-07-08 Completed [facility] .5 mL 00:00:00 [facility] 6[facility] MO [facility] Influenza Virus 2020-07-08 Completed [facility] .5 mL 00:00:00 [facility] 6[facility] MO [facility] Influenza Virus 2020-07-08 Completed [facility] .5 mL 00:00:00 [facility] 6+ MO Branch Influenza Virus 2020-07-08 Completed [facility] .5 mL 00:00:00 [facility] 6+ MO Branch Influenza Virus 2020-07-08 Completed [facility] .5 mL 00:00:00 [facility] 6+ MO Branch (FLUZONE/FLULAVAL/FL UARIX) Influenza Virus 2020-07-08 Completed [facility] .5 mL 00:00:00 [facility] 6+ MO Branch (FLUZONE/FLULAVAL/FL UARIX) Influenza Virus 2020-07-08 Completed [facility] .5 mL 00:00:00 [facility] 6+ MO Branch (FLUZONE/FLULAVAL/FL UARIX) Influenza Virus 2020-07-08 Completed [facility] .5 mL 00:00:00 [facility] 6[facility] MO [facility] (FLUZONE/FLULAVAL/FL UARIX) Influenza Virus 2020-07-08 Completed [facility] .5 mL 00:00:00 [facility] 6+ MO [facility] (FLUZONE/FLULAVAL/FL UARIX) Influenza Virus 2020-07-08 Completed [facility] .5 mL 00:00:00 [facility] 6+ MO [facility] (FLUZONE/FLULAVAL/FL UARIX) Influenza Virus 2020-07-08 Completed [facility] .5 mL 00:00:00 [facility] 6+ MO [facility] (FLUZONE/FLULAVAL/FL UARIX) Influenza Virus 2020-07-08 Completed [facility] .5 mL 00:00:00 [facility] 6[facility] MO [facility] (FLUZONE/FLULAVAL/FL UARIX) Influenza Virus 2020-07-08 Completed [facility] .5 mL 00:00:00 [facility] 6+ MO [facility] (FLUZONE/FLULAVAL/FL UARIX) Meningococcal B, OMV 2018-10-31 Completed [facility] [...] OMV 2018-10-31 Completed [facility] 00:00:00 [facility] Meningococcal B, OMV 2018-10-31 Completed [facility] 00:00:00 [facility] Meningococcal B, OMV 2018-10-31 Completed [facility] 00:00:00 [facility] Meningococcal B, OMV 2018-10-31 Completed [facility] 00:00:00 [facility] Meningococcal B, OMV 2018-10-31 Completed [facility] 00:00:00 [facility] Influenza Virus 2018-08-29 Completed [facility] .5 mL 00:00:00 [facility] 6[facility] MO [facility] Meningococcal B, OMV 2018-08-29 Completed [facility] 00:00:00 [facility] Influenza Virus 2018-08-29 Completed [facility] .5 mL 00:00:00 [facility] 6+ MO [facility] Meningococcal B, OMV 2018-08-29 Completed [facility] 00:00:00 [facility] Influenza Virus 2018-08-29 Completed [facility] .5 mL 00:00:00 [facility] 6+ MO [facility] Meningococcal B, OMV 2018-08-29 Completed [facility] 00:00:00 [facility] Influenza Virus 2018-08-29 Completed [facility] .5 mL 00:00:00 [facility] 6+ MO [facility] Meningococcal B, OMV 2018-08-29 Completed [facility] 00:00:00 [facility] Influenza Virus 2018-08-29 Completed [facility] .5 mL 00:00:00 [facility] 6+ MO [facility] Meningococcal B, OMV 2018-08-29 Completed [facility] 00:00:00 [facility] Influenza Virus 2018-08-29 Completed [facility] .5 mL 00:00:00 [facility] 6+ MO [facility] Meningococcal B, OMV 2018-08-29 Completed [facility] 00:00:00 [facility] Influenza Virus 2018-08-29 Completed [facility] .5 mL 00:00:00 [facility] 6+ MO [facility] Meningococcal B, OMV 2018-08-29 Completed [facility] 00[facility]00:00 [facility] Influenza Virus 2018-08-29 Completed [facility] .5 mL 00:00:00 [facility] 6[facility] MO [facility] Meningococcal B, OMV 2018-08-29 Completed [facility] 00:00:00 [facility] Influenza Virus 2018-08-29 Completed [facility] .5 mL 00:00:00 [facility] 6+ MO [facility] Meningococcal B, OMV 2018-08-29 Completed [facility] 00:00:00 [facility] Influenza Virus 2018-08-29 Completed [facility] .5 mL 00:00:00 [facility] 6+ MO [facility] Meningococcal B, OMV 2018-08-29 Completed [facility] 00:00:00 [facility] Influenza Virus 2018-08-29 Completed [facility] .5 mL 00:00:00 [facility] 6+ MO [facility] Meningococcal B, OMV 2018-08-29 Completed [facility] 00:00:00 [facility] Influenza Virus 2018-08-29 Completed [facility] .5 mL 00:00:00 [facility] 6[facility] MO [facility] Meningococcal B, OMV 2018-08-29 Completed [facility] 00:00:00 [facility] Influenza Virus 2018-08-29 Completed [facility] .5 mL 00:00:00 [facility] 6+ MO [facility] Meningococcal B, OMV 2018-08-29 Completed [facility] 00:00:00 [facility] Influenza Virus 2018-08-29 Completed [facility] .5 mL 00:00:00 [facility] 6[facility] MO [facility] Meningococcal B, OMV 2018-08-29 Completed [facility] 00:00:00 [facility] Influenza Virus 2018-08-29 Completed [facility] .5 mL 00:00:00 [facility] 6[facility] MO [facility] Meningococcal B, OMV 2018-08-29 Completed [facility] 00:00:00 [facility] Influenza Virus 2018-08-29 Completed [facility] .5 mL 00:00:00 [facility] 6[facility] MO [facility] Meningococcal B, OMV 2018-08-29 Completed [facility] 00:00:00 [facility] Influenza Virus 2018-08-29 Completed [facility] .5 mL 00:00:00 [facility] 6[facility] MO [facility] Meningococcal B, OMV 2018-08-29 Completed [facility] 00:00:00 [facility] Influenza Virus 2018-08-29 Completed [facility] .5 mL 00:00:00 [facility] 6+ MO [facility] Meningococcal B, OMV 2018-08-29 Completed [facility] 00:00:00 [facility] Influenza Virus 2018-08-29 Completed [facility] .5 mL 00:00:00 [facility] 6+ MO [facility] Meningococcal B, OMV 2018-08-29 Completed [facility] 00:00:00 [facility] Influenza Virus 2018-08-29 Completed [facility] .5 mL 00:00:00 [facility] 6+ MO [facility] Meningococcal B, OMV 2018-08-29 Completed [facility] 00:00:00 [facility] Influenza Virus 2018-08-29 Completed [facility] .5 mL 00:00:00 [facility] 6+ MO [facility] Meningococcal B, OMV 2018-08-29 Completed [facility] 00:00:00 [facility] Influenza Virus 2018-08-29 Completed [facility] .5 mL 00:00:00 [facility] 6+ MO [facility] Meningococcal B, OMV 2018-08-29 Completed [facility] 00:00:00 [facility] Influenza Virus 2018-08-29 Completed [facility] .5 mL 00:00:00 [facility] 6+ MO [facility] Meningococcal B, OMV 2018-08-29 Completed [facility] 00:00:00 [facility] Influenza Virus 2018-08-29 Completed [facility] .5 mL 00:00:00 [facility] 6+ MO [facility] Meningococcal B, OMV 2018-08-29 Completed [facility] 00:00:00 [facility] Influenza Virus 2018-08-29 Completed [facility] .5 mL 00:00:00 [facility] 6+ MO [facility] Meningococcal B, OMV 2018-08-29 Completed [facility] 00:00:00 [facility] Influenza Virus 2018-08-29 Completed [facility] .5 mL 00:00:00 [facility] 6+ MO [facility] Meningococcal B, OMV 2018-08-29 Completed [facility] 00:00:00 [facility] Influenza Virus 2018-08-29 Completed [facility] .5 mL 00:00:00 [facility] 6[facility] MO [facility] Meningococcal B, OMV 2018-08-29 Completed [facility] 00:00:00 [facility] Influenza Virus 2018-08-29 Completed [facility] .5 mL 00:00:00 [facility] 6+ MO [facility] Meningococcal B, OMV 2018-08-29 Completed [facility] 00:00:00 [facility] Influenza Virus 2018-08-29 Completed [facility] .5 mL 00:00:00 [facility] 6[facility] MO [facility] Meningococcal B, OMV 2018-08-29 Completed [facility] 00:00:00 [facility] Influenza Virus 2018-08-29 Completed [facility] .5 mL 00:00:00 [facility] 6+ MO [facility] Meningococcal B, OMV 2018-08-29 Completed [facility] 00:00:00 [facility] Influenza Virus 2018-08-29 Completed [facility] .5 mL 00:00:00 [facility] 6+ MO [facility] Meningococcal B, OMV 2018-08-29 Completed [facility] 00:00:00 [facility] Influenza Virus 2018-08-29 Completed [facility] .5 mL 00:00:00 [facility] 6+ MO [facility] Meningococcal B, OMV 2018-08-29 Completed [facility] 00:00:00 [facility] Influenza Virus 2018-08-29 Completed [facility] .5 mL 00:00:00 [facility] 6+ MO [facility] Meningococcal B, OMV 2018-08-29 Completed [facility] 00:00:00 [facility] Influenza Virus 2018-08-29 Completed [facility] .5 mL 00:00:00 [facility] 6+ MO [facility] Meningococcal B, OMV 2018-08-29 Completed [facility] 00:00:00 [facility] Influenza Virus 2018-08-29 Completed [facility] .5 mL 00:00:00 [facility] 6+ MO [facility] Meningococcal B, OMV 2018-08-29 Completed [facility] 00:00:00 [facility] Influenza Virus 2018-08-29 Completed [facility] .5 mL 00:00:00 [facility] 6+ MO [facility] Meningococcal B, OMV 2018-08-29 Completed [facility] 00:00:00 [facility] Influenza Virus 2018-08-29 Completed [facility] .5 mL 00:00:00 [facility] 6+ MO [facility] Meningococcal B, OMV 2018-08-29 Completed [facility] 00:00:00 [facility] Influenza Virus 2018-08-29 Completed [facility] .5 mL 00:00:00 [facility] 6+ MO [facility] Meningococcal B, OMV 2018-08-29 Completed [facility] 00:00:00 [facility] Influenza Virus 2018-08-29 Completed [facility] .5 mL 00:00:00 [facility] 6+ MO [facility] Meningococcal B, OMV 2018-08-29 Completed [facility] 00:00:00 [facility] Influenza Virus 2018-08-29 Completed [facility] .5 mL 00:00:00 [facility] 6+ MO [facility] Meningococcal B, OMV 2018-08-29 Completed [facility] 00:00:00 [facility] Influenza Virus 2018-08-29 Completed [facility] .5 mL 00:00:00 [facility] 6+ MO [facility] Meningococcal B, OMV 2018-08-29 Completed [facility] 00:00:00 [facility] Influenza Virus 2018-08-29 Completed [facility] .5 mL 00:00:00 [facility] 6+ MO [facility] Meningococcal B, OMV 2018-08-29 Completed [facility] 00:00:00 [facility] Influenza Virus 2018-08-29 Completed [facility] .5 mL 00:00:00 [facility] 6+ MO [facility] Meningococcal B, OMV 2018-08-29 Completed [facility] 00:00:00 [facility] Influenza Virus 2018-08-29 Completed [facility] .5 mL 00:00:00 [facility] 6+ MO [facility] Meningococcal B, OMV 2018-08-29 Completed [facility] 00[facility]00:00 [facility] Influenza Virus 2018-08-29 Completed [facility] .5 mL 00:00:00 [facility] 6+ MO [facility] Meningococcal B, OMV 2018-08-29 Completed [facility] 00:00:00 [facility] Influenza Virus 2018-08-29 Completed [facility] .5 mL 00:00:00 [facility] 6+ MO [facility] Meningococcal B, OMV 2018-08-29 Completed [facility] 00:00:00 [facility] Influenza Virus 2018-08-29 Completed [facility] .5 mL 00:00:00 [facility] 6+ MO [facility] Meningococcal B, OMV 2018-08-29 Completed [facility] 00:00:00 [facility] Influenza Virus 2018-08-29 Completed [facility] .5 mL 00:00:00 [facility] 6+ MO [facility] Meningococcal B, OMV 2018-08-29 Completed [facility] 00:00:00 [facility] Influenza Virus 2018-08-29 Completed [facility] .5 mL 00:00:00 [facility] 6+ MO [facility] Meningococcal B, OMV 2018-08-29 Completed [facility] 00:00:00 [facility] Influenza Virus 2018-08-29 Completed [facility] .5 mL 00:00:00 [facility] 6+ MO [facility] Meningococcal B, OMV 2018-08-29 Completed [facility] 00:00:00 [facility] Influenza Virus 2018-08-29 Completed [facility] .5 mL 00:00:00 [facility] 6+ MO [facility] Meningococcal B, OMV 2018-08-29 Completed [facility] 00:00:00 [facility] Influenza Virus 2018-08-29 Completed [facility] .5 mL 00:00:00 [facility] 6[facility] MO [facility] Meningococcal B, OMV 2018-08-29 Completed [facility] 00:00:00 [facility] Influenza Virus 2018-08-29 Completed [facility] .5 mL 00:00:00 [facility] 6+ MO [facility] Meningococcal B, OMV 2018-08-29 Completed [facility] 00:00:00 [facility] Influenza Virus 2018-08-29 Completed [facility] .5 mL 00:00:00 [facility] 6+ MO [facility] Meningococcal B, OMV 2018-08-29 Completed [facility] 00:00:00 [facility] Influenza Virus 2018-08-29 Completed [facility] .5 mL 00:00:00 [facility] 6+ MO [facility] Meningococcal B, OMV 2018-08-29 Completed [facility] 00:00:00 [facility] Influenza Virus 2018-08-29 Completed [facility] .5 mL 00:00:00 [facility] 6+ MO [facility] Meningococcal B, OMV 2018-08-29 Completed [facility] 00:00:00 [facility] Influenza Virus 2018-08-29 Completed [facility] .5 mL 00:00:00 [facility] 6+ MO [facility] Meningococcal B, OMV 2018-08-29 Completed [facility] 00:00:00 [facility] Influenza Virus 2018-08-29 Completed [facility] .5 mL 00:00:00 [facility] 6+ MO [facility] Meningococcal B, OMV 2018-08-29 Completed [facility] 00:00:00 [facility] Influenza Virus 2018-08-29 Completed [facility] .5 mL 00:00:00 [facility] 6+ MO [facility] Meningococcal B, OMV 2018-08-29 Completed [facility] 00:00:00 [facility] Influenza Virus 2018-08-29 Completed [facility] .5 mL 00:00:00 [facility] 6+ MO [facility] Meningococcal B, OMV 2018-08-29 Completed [facility] 00:00:00 [facility] Influenza Virus 2018-08-29 Completed [facility] .5 mL 00:00:00 [facility] 6+ MO [facility] Meningococcal B, OMV 2018-08-29 Completed [facility] 00:00:00 [facility] Influenza Virus 2018-08-29 Completed [facility] .5 mL 00:00:00 [facility] 6+ MO [facility] Meningococcal B, OMV 2018-08-29 Completed [facility] 00:00:00 [facility] Influenza Virus 2018-08-29 Completed [facility] .5 mL 00:00:00 [facility] 6+ MO [facility] Meningococcal B, OMV 2018-08-29 Completed [facility] 00[facility]00:00 [facility] Influenza Virus 2018-08-29 Completed [facility] .5 mL 00:00:00 [facility] 6[facility] MO [facility] Meningococcal B, OMV 2018-08-29 Completed [facility] 00:00:00 [facility] Influenza Virus 2018-08-29 Completed [facility] .5 mL 00:00:00 [facility] 6+ MO [facility] Meningococcal B, OMV 2018-08-29 Completed [facility] 00:00:00 [facility] Influenza Virus 2018-08-29 Completed [facility] .5 mL 00:00:00 [facility] 6[facility] MO [facility] Meningococcal B, OMV 2018-08-29 Completed [facility] 00[facility]00:00 [facility] Influenza Virus 2018-08-29 Completed [facility] .5 mL 00:00:00 [facility] 6+ MO [facility] Meningococcal B, OMV 2018-08-29 Completed [facility] 00:00:00 [facility] Influenza Virus 2018-08-29 Completed [facility] .5 mL 00:00:00 [facility] 6[facility] MO [facility] Meningococcal B, OMV 2018-08-29 Completed [facility] 00:00:00 [facility] Influenza Virus 2018-08-29 Completed [facility] .5 mL 00:00:00 [facility] 6[facility] MO [facility] Meningococcal B, OMV 2018-08-29 Completed [facility] 00:00:00 [facility] Influenza Virus 2018-08-29 Completed [facility] .5 mL 00:00:00 [facility] 6[facility] MO [facility] Meningococcal B, OMV 2018-08-29 Completed [facility] 00[facility]00:00 [facility] Influenza Virus 2018-08-29 Completed [facility] .5 mL 00:00:00 [facility] 6[facility] MO [facility] Meningococcal B, OMV 2018-08-29 Completed [facility] 00:00:00 [facility] Influenza Virus 2018-08-29 Completed [facility] .5 mL 00:00:00 [facility] 6[facility] MO [facility] Meningococcal B, OMV 2018-08-29 Completed [facility] 00:00:00 [facility] Influenza Virus 2018-08-29 Completed [facility] .5 mL 00:00:00 [facility] 6[facility] MO [facility] Meningococcal B, OMV 2018-08-29 Completed [facility] 00:00:00 [facility] Influenza Virus 2018-08-29 Completed [facility] .5 mL 00:00:00 [facility] 6[facility] MO [facility] Meningococcal B, OMV 2018-08-29 Completed [facility] 00:00:00 [facility] Influenza Virus 2018-08-29 Completed [facility] .5 mL 00:00:00 [facility] 6[facility] MO [facility] Meningococcal B, OMV 2018-08-29 Completed [facility] 00:00:00 [facility] Influenza Virus 2018-08-29 Completed [facility] .5 mL 00:00:00 [facility] 6[facility] MO [facility] Meningococcal B, OMV 2018-08-29 Completed [facility] 00:00:00 [facility] Influenza Virus 2018-08-29 Completed [facility] .5 mL 00:00:00 [facility] 6[facility] MO [facility] Meningococcal B, OMV 2018-08-29 Completed [facility] 00:00:00 [facility] Influenza Virus 2018-08-29 Completed [facility] .5 mL 00:00:00 [facility] 6[facility] MO [facility] Meningococcal B, OMV 2018-08-29 Completed [facility] 00:00:00 [facility] Influenza Virus 2018-08-29 Completed [facility] .5 mL 00:00:00 [facility] 6[facility] MO [facility] Meningococcal B, OMV 2018-08-29 Completed [facility] 00:00:00 [facility] Influenza Virus 2018-08-29 Completed [facility] .5 mL 00:00:00 [facility] 6[facility] MO [facility] Meningococcal B, OMV 2018-08-29 Completed [facility] 00[facility]00:00 [facility] Influenza Virus 2018-08-29 Completed [facility] .5 mL 00:00:00 [facility] 6[facility] MO [facility] Meningococcal B, OMV 2018-08-29 Completed [facility] 00:00:00 [facility] Influenza Virus 2018-08-29 Completed [facility] .5 mL 00:00:00 [facility] 6[facility] MO [facility] Meningococcal B, OMV 2018-08-29 Completed [facility] 00[facility]00:00 [facility] Influenza Virus 2018-08-29 Completed [facility] .5 mL 00:00:00 [facility] 6[facility] MO [facility] Meningococcal B, OMV 2018-08-29 Completed [facility] 00:00:00 [facility] Influenza Virus 2018-08-29 Completed [facility] .5 mL 00:00:00 [facility] 6[facility] MO [facility] Meningococcal B, OMV 2018-08-29 Completed [facility] 00:00:00 [facility] Influenza Virus 2018-08-29 Completed [facility] .5 mL 00:00:00 [facility] 6[facility] MO [facility] Meningococcal B, OMV 2018-08-29 Completed [facility] 00:00:00 [facility] Influenza Virus 2018-08-29 Completed [facility] .5 mL 00:00:00 [facility] 6[facility] MO [facility] Meningococcal B, OMV 2018-08-29 Completed [facility] 00:00:00 [facility] Influenza Virus 2018-08-29 Completed [facility] .5 mL 00:00:00 [facility] 6[facility] MO [facility] Meningococcal B, OMV 2018-08-29 Completed [facility] 00:00:00 [facility] Influenza Virus 2018-08-29 Completed [facility] .5 mL 00:00:00 [facility] 6[facility] MO [facility] Meningococcal B, OMV 2018-08-29 Completed [facility] 00:00:00 [facility] Influenza Virus 2018-08-29 Completed [facility] .5 mL 00:00:00 [facility] 6[facility] MO [facility] Meningococcal B, OMV 2018-08-29 Completed [facility] 00:00:00 [facility] Influenza Virus 2018-08-29 Completed [facility] .5 mL 00:00:00 [facility] 6[facility] MO [facility] Meningococcal B, OMV 2018-08-29 Completed [facility] 00:00:00 [facility] Influenza Virus 2018-08-29 Completed [facility] .5 mL 00:00:00 [facility] 6[facility] MO [facility] Meningococcal B, OMV 2018-08-29 Completed [facility] 00:00:00 [facility] Influenza Virus 2018-08-29 Completed [facility] .5 mL 00:00:00 [facility] 6[facility] MO [facility] Meningococcal B, OMV 2018-08-29 Completed [facility] 00:00:00 [facility] Influenza Virus 2018-08-29 Completed [facility] .5 mL 00:00:00 [facility] 6+ MO [facility] Meningococcal B, OMV 2018-08-29 Completed [facility] 00:00:00 [facility] Influenza Virus 2018-08-29 Completed [facility] .5 mL 00:00:00 [facility] 6+ MO [facility] Meningococcal B, OMV 2018-08-29 Completed [facility] 00:00:00 [facility] Influenza Virus 2018-08-29 Completed [facility] .5 mL 00:00:00 [facility] 6+ MO Branch Meningococcal B, OMV 2018-08-29 Completed [facility] 00:00:00 [facility] Influenza Virus 2018-08-29 Completed [facility] .5 mL 00:00:00 [facility] 6+ MO Branch Meningococcal B, OMV 2018-08-29 Completed [facility] 00:00:00 [facility] Influenza Virus 2018-08-29 Completed [facility] .5 mL 00:00:00 [facility] 6+ MO Branch (FLUZONE/FLULAVAL/FL UARIX) Meningococcal B, OMV 2018-08-29 Completed [facility] 00:00:00 [facility] Influenza Virus 2018-08-29 Completed [facility] .5 mL 00:00:00 [facility] 6+ MO Branch (FLUZONE/FLULAVAL/FL UARIX) Meningococcal B, OMV 2018-08-29 Completed [facility] 00:00:00 [facility] Influenza Virus 2018-08-29 Completed [facility] .5 mL 00:00:00 [facility] 6+ MO Branch (FLUZONE/FLULAVAL/FL UARIX) Meningococcal B, OMV 2018-08-29 Completed [facility] 00:00:00 [facility] Influenza Virus 2018-08-29 Completed [facility] .5 mL 00:00:00 [facility] 6+ MO Branch (FLUZONE/FLULAVAL/FL UARIX) Meningococcal B, OMV 2018-08-29 Completed [facility] 00:00[facility]00 [facility] [place] Influenza Virus 2018-08-29 Completed [facility] Vaccine Quad .5 mL 00:00:00 [facility] 6+ MO Branch (FLUZONE/FLULAVAL/FL UARIX) Meningococcal B, OMV 2018-08-29 Completed [facility] ersity of 00:00:00 [facility] [place] Influenza Virus 2018-08-29 Completed [facility] Vaccine Quad .5 mL 00:00:00 [facility] 6+ MO Branch (FLUZONE/FLULAVAL/FL UARIX) Meningococcal B, OMV 2018-08-29 Completed [facility] ersity of 00:00:00 [facility] [place] Influenza Virus 2018-08-29 Completed [facility] Vaccine Quad .5 mL 00:00:00 [facility] 6+ MO Branch (FLUZONE/FLULAVAL/FL UARIX) Meningococcal B, OMV 2018-08-29 Completed [facility] ersity of 00:00:00 [facility] [place] Influenza Virus 2018-08-29 Completed [facility] Vaccine Quad .5 mL 00:00:00 [facility] 6+ MO Branch (FLUZONE/FLULAVAL/FL UARIX) Meningococcal B, OMV 2018-08-29 Completed [facility] ersity of 00:00:00 [facility] [place] Influenza Virus 2018-08-29 Completed [facility] Vaccine Quad .5 mL 00:00:00 [facility] 6+ MO Branch (FLUZONE/FLULAVAL/FL UARIX) Meningococcal B, OMV 2018-08-29 Completed [facility] ersity of 00:00:00 [facility] [place] Meningococcal 2018-01-17 Completed [facility] Polysaccharide 00:00:00 [place] [facility] (groups A, C, Y and Branc h W-135) conjugate vaccine (MCV4P) Meningococcal 2018-01-17 Completed [facility] Polysaccharide 00:00:00 [facility] (groups A, C, Y and Branc h W-135) conjugate vaccine (MCV4P) Meningococcal 2018-01-17 Completed [facility] Polysaccharide 00:00:00 [facility] (groups A, C, Y and Branc h W-135) conjugate vaccine (MCV4P) Meningococcal 2018-01-17 Completed [facility] Polysaccharide 00:00:00 [facility] (groups A, C, Y and Branc h W-135) conjugate vaccine (MCV4P) Meningococcal 2018-01-17 Completed [facility] Polysaccharide 00:00:00 [facility] (groups A, C, Y and [...] Completed [facility] Polysaccharide 00:00:00 [facility] (groups A, C, Y and Branc h [...] Completed [facility] Polysaccharide 00:00:00 [place] [facility] (groups A, C, Y and Branc h [...] y of Vaccine Quad IM 3+ 00:00:00 [facility] Influenza Virus 2017-04-12 Completed [facility] of Vaccine Quad IM 3+ 00:00:00 [facility] Influenza Virus 2017-04-12 Completed [facility] Vaccine Quad IM 3+ 00:00:00 [facility] Influenza Virus 2017-04-12 Completed [facility] Vaccine Quad IM 3+ 00:00:00 [facility] Influenza Virus 2017-04-12 Completed [facility] of Vaccine Quad IM 3+ 00:00:00 [facility] Influenza Virus 2017-04-12 Completed [facility] Vaccine Quad IM 3+ 00:00:00 [facility] Influenza Virus 2017-04-12 Completed [facility] of Vaccine Quad IM 3+ 00:00:00 [facility] Influenza Virus 2017-04-12 Completed [facility] Vaccine Quad IM 3+ 00:00:00 [facility] Influenza Virus 2017-04-12 Completed [facility] Vaccine Quad IM 3+ 00:00:00 [facility] Influenza Virus 2017-04-12 Completed [facility] Vaccine Quad IM 3+ 00:00:00 [facility] Influenza Virus 2017-04-12 Completed [facility] Vaccine Quad IM 3+ 00:00:00 [facility] Influenza Virus 2017-04-12 Completed [facility] Vaccine Quad IM 3+ 00:00:00 [facility] Influenza Virus 2017-04-12 Completed [facility] Vaccine Quad IM 3+ 00:00:00 [facility] Influenza Virus 2017-04-12 Completed [facility] of Vaccine Quad IM 3+ 00:00:00 [facility] Influenza Virus 2017-04-12 Completed [facility] Vaccine Quad IM 3+ 00:00:00 [facility] Influenza Virus 2017-04-12 Completed [facility] of Vaccine Quad IM 3+ 00:00:00 [facility] Influenza Virus 2017-04-12 Completed [facility] of Vaccine Quad IM 3+ 00:00:00 [facility] Influenza Virus 2017-04-12 Completed [facility] of Vaccine Quad IM 3+ 00:00:00 [facility] Influenza Virus 2017-04-12 Completed [facility] Vaccine Quad IM 3+ 00:00:00 [facility] Influenza Virus 2017-04-12 Completed [facility] Vaccine Quad IM 3+ 00:00:00 [facility] Influenza Virus 2017-04-12 Completed [facility] Vaccine Quad IM 3+ 00:00:00 [facility] Influenza Virus 2017-04-12 Completed [facility] Vaccine Quad IM 3+ 00:00:00 [facility] Influenza Virus 2017-04-12 Completed [facility] Vaccine Quad IM 3+ 00:00:00 [facility] Influenza Virus 2017-04-12 Completed [facility] Vaccine Quad IM 3+ 00:00:00 [facility] Influenza Virus 2017-04-12 Completed [facility] Vaccine Quad IM 3+ 00:00:00 [facility] Influenza Virus 2017-04-12 Completed [facility] Vaccine Quad IM 3+ 00:00:00 [facility] Influenza Virus 2017-04-12 Completed [facility] Vaccine Quad IM 3+ 00:00:00 [facility] Influenza Virus 2017-04-12 Completed [facility] Vaccine Quad IM 3+ 00:00:00 [facility] Influenza Virus 2017-04-12 Completed [facility] Vaccine Quad IM 3+ 00:00:00 [facility] Influenza Virus 2017-04-12 Completed [facility] Vaccine Quad IM 3+ 00:00:00 [facility] Influenza Virus 2017-04-12 Completed [facility] Vaccine Quad IM 3+ 00:00:00 [facility] Influenza Virus 2017-04-12 Completed [facility] Vaccine Quad IM 3+ 00:00:00 [facility] Influenza Virus 2017-04-12 Completed [facility] Vaccine Quad IM 3+ 00:00:00 [facility] Influenza Virus 2017-04-12 Completed [facility] Vaccine Quad IM 3+ 00:00:00 [facility] Influenza Virus 2017-04-12 Completed [facility] Vaccine Quad IM 3+ 00:00:00 [facility] Influenza Virus 2017-04-12 Completed [facility] Vaccine Quad IM 3+ 00:00:00 [facility] Influenza Virus 2017-04-12 Completed [facility] Vaccine Quad IM 3+ 00:00:00 [facility] Influenza Virus 2017-04-12 Completed [facility] Vaccine Quad IM 3+ 00:00:00 [facility] Influenza Virus 2017-04-12 Completed [facility] Vaccine Quad IM 3+ 00:00:00 [facility] Influenza Virus 2017-04-12 Completed [facility] Vaccine Quad IM 3+ 00:00:00 [facility] Influenza Virus 2017-04-12 Completed [facility] Vaccine Quad IM 3+ 00:00:00 [facility] Influenza Virus 2017-04-12 Completed [facility] Vaccine Quad IM 3+ 00:00:00 [facility] Influenza Virus 2017-04-12 Completed [facility] Vaccine Quad IM 3+ 00:00:00 [facility] Influenza Virus 2017-04-12 Completed [facility] Vaccine Quad IM 3+ 00:00:00 [facility] Influenza Virus 2017-04-12 Completed [facility] of Vaccine Quad IM 3+ 00:00:00 [facility] Influenza Virus 2017-04-12 Completed [facility] Vaccine Quad IM 3+ 00:00:00 [facility] Influenza Virus 2017-04-12 Completed [facility] Vaccine Quad IM 3+ 00:00:00 [facility] Influenza Virus 2017-04-12 Completed [facility] Vaccine Quad IM 3+ 00:00:00 [facility] Influenza Virus 2017-04-12 Completed [facility] Vaccine Quad IM 3+ 00:00:00 [facility] Influenza Virus 2017-04-12 Completed [facility] Vaccine Quad IM 3+ 00:00:00 [facility] Influenza Virus 2017-04-12 Completed [facility] Vaccine Quad IM 3+ 00:00:00 [facility] Influenza Virus 2017-04-12 Completed [facility] Vaccine Quad IM 3+ 00:00:00 [facility] Influenza Virus 2017-04-12 Completed [facility] Vaccine Quad IM 3+ 00:00:00 [facility] Influenza Virus 2017-04-12 Completed [facility] of Vaccine Quad IM 3+ 00:00:00 [facility] Influenza Virus 2017-04-12 Completed [facility] Vaccine Quad IM 3+ 00:00:00 [facility] Influenza Virus 2017-04-12 Completed [facility] Vaccine Quad IM 3+ 00:00:00 [facility] Influenza Virus 2017-04-12 Completed [facility] Vaccine Quad IM 3+ 00:00:00 [facility] Influenza Virus 2017-04-12 Completed [facility] Vaccine Quad IM 3+ 00:00:00 [facility] Influenza Virus 2017-04-12 Completed [facility] Vaccine Quad IM 3+ 00:00:00 [facility] Influenza Virus 2017-04-12 Completed [facility] Vaccine Quad IM 3+ 00:00:00 [facility] Influenza Virus 2017-04-12 Completed [facility] Vaccine Quad IM 3+ 00:00:00 [facility] Influenza Virus 2017-04-12 Completed [facility] Vaccine Quad IM 3+ 00:00:00 [facility] Influenza Virus 2017-04-12 Completed [facility] of Vaccine Quad IM 3+ 00:00:00 [facility] Influenza Virus 2017-04-12 Completed [facility] of Vaccine Quad IM 3+ 00:00:00 [facility] Influenza Virus 2017-04-12 Completed [facility] of Vaccine Quad IM 3+ 00:00:00 [facility] Influenza Virus 2017-04-12 Completed [facility] of Vaccine Quad IM 3+ 00:00:00 [facility] Influenza Virus 2017-04-12 Completed [facility] Vaccine Quad IM 3+ 00:00:00 [facility] Influenza Virus 2017-04-12 Completed [facility] Vaccine Quad IM 3+ 00:00:00 [facility] Influenza Virus 2017-04-12 Completed [facility] Vaccine Quad IM 3+ 00:00:00 [facility] Influenza Virus 2017-04-12 Completed [facility] Vaccine Quad IM 3+ 00:00:00 [facility] Influenza Virus 2017-04-12 Completed [facility] Vaccine Quad IM 3+ 00:00:00 [facility] Influenza Virus 2017-04-12 Completed [facility] of Vaccine Quad IM 3+ 00:00:00 [facility] Influenza Virus 2017-04-12 Completed [facility] of Vaccine Quad IM 3+ 00:00:00 [facility] Influenza Virus 2017-04-12 Completed [facility] Vaccine Quad IM 3+ 00:00:00 [facility] Influenza Virus 2017-04-12 Completed [facility] of Vaccine Quad IM 3+ 00:00:00 [facility] Influenza Virus 2017-04-12 Completed [facility] of Vaccine Quad IM 3+ 00:00:00 [facility] Influenza Virus 2017-04-12 Completed [facility] Vaccine Quad IM 3+ 00:00:00 [facility] Influenza Virus 2017-04-12 Completed [facility] Vaccine Quad IM 3+ 00:00:00 [facility] Influenza Virus 2017-04-12 Completed [facility] Vaccine Quad IM 3+ 00:00:00 [facility] Influenza Virus 2017-04-12 Completed [facility] Vaccine Quad IM 3+ 00:00:00 [facility] Influenza Virus 2017-04-12 Completed [facility] Vaccine Quad IM 3+ 00:00:00 [facility] Influenza Virus 2017-04-12 Completed [facility] Vaccine Quad IM 3+ 00:00:00 [facility] Influenza Virus 2017-04-12 Completed [facility] Vaccine Quad IM 3+ 00:00:00 [facility] Influenza Virus 2017-04-12 Completed [facility] Vaccine Quad IM 3+ 00:00:00 [facility] Influenza Virus 2017-04-12 Completed [facility] Vaccine Quad IM 3+ 00:00:00 [facility] Influenza Virus 2017-04-12 Completed [facility] Vaccine Quad IM 3+ 00:00:00 [facility] Influenza Virus 2017-04-12 Completed [facility] Vaccine Quad IM 3+ 00:00:00 [facility] Influenza Virus 2017-04-12 Completed [facility] Vaccine Quad IM 3+ 00:00:00 [facility] Influenza Virus 2017-04-12 Completed [facility] Vaccine Quad IM 3+ 00:00:00 [facility] Influenza Virus 2017-04-12 Completed [facility] Vaccine Quad IM 3+ 00:00:00 [facility] Influenza Virus 2017-04-12 Completed [facility] Vaccine Quad IM 3+ 00:00:00 [facility] Influenza Virus 2017-04-12 Completed [facility] Vaccine Quad IM 3+ 00:00:00 [facility] Influenza Virus 2017-04-12 Completed [facility] Vaccine Quad IM 3+ 00:00:00 [facility] Influenza Virus 2017-04-12 Completed [facility] of Vaccine Quad IM 3+ 00:00:00 [facility] Influenza Virus 2017-04-12 Completed [facility] Vaccine Quad IM 3+ 00:00:00 [facility] Influenza Virus 2017-04-12 Completed [facility] Vaccine Quad IM 3+ 00:00:00 [facility] Influenza Virus 2017-04-12 Completed [facility] Vaccine Quad IM 3+ 00:00:00 [facility] Influenza Virus 2017-04-12 Completed [facility] Vaccine Quad IM 3+ 00:00:00 [facility] Influenza Virus 2017-04-12 Completed [facility] Vaccine Quad IM 3+ 00:00:00 [facility] Influenza Virus 2017-04-12 Completed [facility] Vaccine Quad IM 3+ 00:00:00 [facility] Influenza Virus 2017-04-12 Completed [facility] of Vaccine Quad IM 3+ 00:00:00 [facility] Influenza Virus 2017-04-12 Completed [facility] of Vaccine Quad IM 3+ 00:00:00 [facility] Influenza Virus 2017-04-12 Completed [facility] of Vaccine Quad IM 3+ 00:00:00 [facility] Influenza Virus 2017-04-12 Completed [facility] of Vaccine Quad IM 3+ 00:00:00 [facility] Influenza Virus 2017-04-12 Completed [facility] Vaccine Quad IM 3+ 00:00:00 [facility] HPV9 2017-02-01 Completed [facility] 00:00:00 [facility] HPV9 2017-02-01 Completed [facility] 00:00:00 [facility] HPV9 2017-02-01 Completed [facility] of 00:00:00 [facility] HPV9 2017-02-01 Completed [facility] of 00:00:00 [facility] HPV9 2017-02-01 Completed [facility] of 00:00:00 [facility] HPV9 2017-02-01 Completed [facility] of 00:00:00 [facility] HPV9 2017-02-01 Completed [facility] of 00:00:00 [facility] HPV9 2017-02-01 Completed [facility] of 00:00:00 [facility] HPV9 2017-02-01 Completed [facility] of 00:00:00 [facility] HPV9 2017-02-01 Completed [facility] of 00:00:00 [facility] HPV9 2017-02-01 Completed [facility] of 00:00:00 [facility] HPV9 2017-02-01 Completed [facility] of 00:00:00 [facility] HPV9 2017-02-01 Completed [facility] of 00:00:00 [facility] HPV9 2017-02-01 Completed [facility] of 00:00:00 [facility] HPV9 2017-02-01 Completed [facility] 00:00:00 [facility] HPV9 2017-02-01 Completed [facility] 00:00:00 [facility] HPV9 2017-02-01 Completed [facility] 00:00:00 [facility] HPV9 2017-02-01 Completed [facility] 00:00:00 [facility] HPV9 2017-02-01 Completed [facility] 00:00:00 [facility] HPV9 2017-02-01 Completed [facility] 00:00:00 [facility] HPV9 2017-02-01 Completed [facility] 00:00:00 [facility] HPV9 2017-02-01 Completed [facility] 00:00:00 [facility] HPV9 2017-02-01 Completed [facility] 00:00:00 [facility] HPV9 2017-02-01 Completed [facility] 00:00:00 [facility] HPV9 2017-02-01 Completed [facility] 00:00:00 [facility] HPV9 2017-02-01 Completed [facility] 00:00:00 [facility] HPV9 2017-02-01 Completed [facility] 00:00:00 [facility] HPV9 2017-02-01 Completed [facility] 00:00:00 [facility] HPV9 2017-02-01 Completed [facility] 00:00:00 [facility] HPV9 2017-02-01 Completed [facility] 00:00:00 [facility] HPV9 2017-02-01 Completed [facility] 00:00:00 [facility] HPV9 2017-02-01 Completed [facility] 00:00:00 [facility] HPV9 2017-02-01 Completed [facility] 00:00:00 [facility] HPV9 2017-02-01 Completed [facility] 00:00:00 [facility] HPV9 2017-02-01 Completed [facility] 00:00:00 [facility] HPV9 2017-02-01 Completed [facility] 00:00:00 [facility] HPV9 2017-02-01 Completed [facility] 00:00:00 [facility] HPV9 2017-02-01 Completed [facility] 00:00:00 [facility] HPV9 2017-02-01 Completed [facility] 00:00:00 [facility] HPV9 2017-02-01 Completed [facility] 00:00:00 [facility] HPV9 2017-02-01 Completed [facility] 00:00:00 [facility] HPV9 2017-02-01 Completed [facility] 00:00:00 [facility] HPV9 2017-02-01 Completed [facility] 00:00:00 [facility] HPV9 2017-02-01 Completed [facility] 00:00:00 [facility] HPV9 2017-02-01 Completed [facility] 00:00:00 [facility] HPV9 2017-02-01 Completed [facility] 00:00:00 [facility] HPV9 2017-02-01 Completed [facility] 00:00:00 [facility] HPV9 2017-02-01 Completed [facility] 00:00:00 [facility] HPV9 2017-02-01 Completed [facility] 00:00:00 [facility] HPV9 2017-02-01 Completed [facility] 00:00:00 [facility] HPV9 2017-02-01 Completed [facility] 00:00:00 [facility] HPV9 2017-02-01 Completed [facility] 00:00:00 [facility] HPV9 2017-02-01 Completed [facility] 00:00:00 [facility] HPV9 2017-02-01 Completed [facility] 00:00:00 [facility] HPV9 2017-02-01 Completed [facility] 00:00:00 [facility] HPV9 2017-02-01 Completed [facility] 00:00:00 [facility] HPV9 2017-02-01 Completed [facility] 00:00:00 [facility] HPV9 2017-02-01 Completed [facility] 00:00:00 [facility] HPV9 2017-02-01 Completed [facility] 00:00:00 [facility] HPV9 2017-02-01 Completed [facility] 00:00:00 [facility] HPV9 2017-02-01 Completed [facility] 00:00:00 [facility] HPV9 2017-02-01 Completed [facility] 00:00:00 [facility] HPV9 2017-02-01 Completed [facility] 00:00:00 [facility] HPV9 2017-02-01 Completed [facility] 00:00:00 [facility] HPV9 2017-02-01 Completed [facility] 00:00:00 [facility] HPV9 2017-02-01 Completed [facility] 00:00:00 [facility] HPV9 2017-02-01 Completed [facility] 00:00:00 [facility] HPV9 2017-02-01 Completed [facility] 00:00:00 [facility] HPV9 2017-02-01 Completed [facility] 00:00:00 [facility] HPV9 2017-02-01 Completed [facility] 00:00:00 [facility] HPV9 2017-02-01 Completed [facility] 00:00:00 [facility] HPV9 2017-02-01 Completed [facility] 00:00:00 [facility] HPV9 2017-02-01 Completed [facility] 00:00:00 [facility] HPV9 2017-02-01 Completed [facility] 00:00:00 [facility] HPV9 2017-02-01 Completed [facility] 00:00:00 [facility] HPV9 2017-02-01 Completed [facility] 00:00:00 [facility] HPV9 2017-02-01 Completed [facility] 00:00:00 [facility] HPV9 2017-02-01 Completed [facility] 00:00:00 [facility] HPV9 2017-02-01 Completed [facility] 00:00:00 [facility] HPV9 2017-02-01 Completed [facility] 00:00:00 [facility] HPV9 2017-02-01 Completed [facility] 00:00:00 [facility] HPV9 2017-02-01 Completed [facility] 00:00:00 [facility] HPV9 2017-02-01 Completed [facility] 00:00:00 [facility] HPV9 2017-02-01 Completed [facility] 00:00:00 [facility] HPV9 2017-02-01 Completed [facility] 00:00:00 [facility] HPV9 2017-02-01 Completed [facility] 00:00:00 [facility] HPV9 2017-02-01 Completed [facility] 00:00:00 [facility] HPV9 2017-02-01 Completed [facility] 00:00:00 [facility] HPV9 2017-02-01 Completed [facility] 00:00:00 [facility] HPV9 2017-02-01 Completed [facility] 00:00:00 [facility] HPV9 2017-02-01 Completed [facility] 00:00:00 [facility] HPV9 2017-02-01 Completed [facility] 00:00:00 [facility] HPV9 2017-02-01 Completed [facility] 00:00:00 [facility] HPV9 2017-02-01 Completed [facility] 00:00:00 [facility] HPV9 2017-02-01 Completed [facility] 00:00:00 [facility] HPV9 2017-02-01 Completed [facility] 00:00:00 [facility] HPV9 2017-02-01 Completed [facility] 00:00:00 [facility] HPV9 2017-02-01 Completed [facility] 00:00:00 [facility] HPV9 2017-02-01 Completed [facility] 00:00:00 [facility] HPV9 2017-02-01 Completed [facility] 00:00:00 [facility] HPV9 2017-02-01 Completed [facility] 00:00:00 [facility] HPV9 2017-02-01 Completed [facility] 00:00:00 [facility] HPV9 2017-02-01 Completed [facility] 00:00:00 [facility] HPV9 2017-02-01 Completed [facility] 00:00:00 [facility] HPV9 2017-02-01 Completed [facility] 00:00:00 [facility] HPV 2016-01-20 Completed [facility] 00:00:00 [facility] HPV 2016-01-20 Completed [facility] 00:00:00 [facility] HPV 2016-01-20 Completed [facility] 00:00:00 [facility] HPV 2016-01-20 Completed [facility] 00:00:00 [facility] HPV 2016-01-20 Completed [facility] 00:00:00 [facility] HPV 2016-01-20 Completed [facility] 00:00:00 [facility] HPV 2016-01-20 Completed [facility] 00:00:00 [facility] HPV 2016-01-20 Completed [facility] [...] HPV 2016-01-20 Completed [facility] 00:00:00 [facility] HPV 2016-01-20 Completed [facility] 00:00:00 [facility] HPV 2016-01-20 Completed [facility] 00:00:00 [facility] HPV 2016-01-20 Completed [facility] 00:00:00 [facility] HPV 2016-01-20 Completed [facility] 00:00:00 [facility] HPV 2016-01-20 Completed [facility] 00:00:00 [facility] HPV 2016-01-20 Completed [facility] 00:00:00 [facility] HPV 2016-01-20 Completed [facility] 00:00:00 [facility] HPV 2016-01-20 Completed [facility] 00:00:00 [facility] HPV 2016-01-20 Completed [facility] 00:00:00 [facility] HPV 2016-01-20 Completed [facility] 00:00:00 [facility] HPV 2016-01-20 Completed [facility] 00:00:00 [facility] HPV 2016-01-20 Completed [facility] 00:00:00 [facility] HPV 2016-01-20 Completed [facility] 00:00:00 [facility] HPV 2016-01-20 Completed [facility] 00:00:00 [facility] HPV 2016-01-20 Completed [facility] 00:00:00 [facility] HPV 2016-01-20 Completed [facility] 00:00:00 [facility] HPV 2016-01-20 Completed [facility] 00:00:00 [facility] HPV 2016-01-20 Completed [facility] 00:00:00 [facility] HPV 2016-01-20 Completed [facility] 00:00:00 [facility] HPV 2016-01-20 Completed [facility] 00:00:00 [facility] HPV 2016-01-20 Completed [facility] 00:00:00 [facility] HPV 2016-01-20 Completed [facility] 00:00:00 [facility] HPV 2016-01-20 Completed [facility] 00:00:00 [facility] HPV 2016-01-20 Completed [facility] 00:00:00 [facility] HPV 2016-01-20 Completed [facility] 00:00:00 [facility] HPV 2016-01-20 Completed [facility] 00:00:00 [facility] HPV 2016-01-20 Completed [facility] 00:00:00 [facility] HPV 2016-01-20 Completed [facility] 00:00:00 [facility] HPV 2016-01-20 Completed [facility] 00:00:00 [facility] HPV 2016-01-20 Completed [facility] 00:00:00 [facility] HPV 2016-01-20 Completed [facility] 00:00:00 [facility] HPV 2016-01-20 Completed [facility] 00:00:00 [facility] HPV 2016-01-20 Completed [facility] 00:00:00 [facility] HPV 2016-01-20 Completed [facility] 00:00:00 [facility] HPV 2016-01-20 Completed [facility] 00[facility]00 [facility] [facility] HPV 2016-01-20 Completed [facility] 00[facility]:00 [facility] HPV 2016-01-20 Completed [facility] 00:00:00 [facility] HPV 2016-01-20 Completed [facility] 00[facility]00:00 [facility] HPV 2016-01-20 Completed [facility] 00:00:00 [facility] HPV 2016-01-20 Completed [facility] 00:00:00 [facility] HPV 2016-01-20 Completed [facility] 00:00:00 [facility] HPV 2016-01-20 Completed [facility] 00:00:00 [facility] HPV 2016-01-20 Completed [facility] 00[facility]00:00 [facility] HPV 2016-01-20 Completed [facility] 00[facility]00:00 [facility] HPV 2016-01-20 Completed [facility] 00:00:00 [facility] HPV 2016-01-20 Completed [facility] 00:00:00 [facility] HPV 2016-01-20 Completed [facility] 00:00:00 [facility] HPV 2016-01-20 Completed [facility] 00[facility]00:00 [facility] HPV 2016-01-20 Completed [facility] 00:00:00 [facility] HPV 2016-01-20 Completed [facility] 00:00:00 [facility] HPV 2016-01-20 Completed [facility] 00[facility]00:00 [facility] HPV 2016-01-20 Completed [facility] 00:00:00 [facility] HPV 2016-01-20 Completed [facility] 00:00:00 [facility] HPV 2016-01-20 Completed [facility] 00[facility]00:00 [facility] HPV 2016-01-20 Completed [facility] 00:00:00 [facility] HPV 2016-01-20 Completed [facility] 00:00:00 [facility] HPV 2016-01-20 Completed [facility] 00:00:00 [facility] HPV 2016-01-20 Completed [facility] 00:00:00 [facility] HPV 2016-01-20 Completed [facility] 00:00:00 [facility] HPV 2016-01-20 Completed [facility] 00[facility]00:00 [facility] HPV 2016-01-20 Completed [facility] 00:00:00 [facility] HPV 2016-01-20 Completed [facility] 00:00:00 [facility] HPV 2016-01-20 Completed [facility] 00:00:00 [facility] HPV 2016-01-20 Completed [facility] 00:00:00 [facility] HPV 2016-01-20 Completed [facility] 00:00:00 [facility] HPV 2016-01-20 Completed [facility] 00[facility]00:00 [facility] HPV 2016-01-20 Completed [facility] 00:00:00 [facility] HPV 2016-01-20 Completed [facility] 00:00:00 [facility] HPV 2016-01-20 Completed [facility] 00:00:00 [facility] HPV 2016-01-20 Completed [facility] 00:00:00 [facility] HPV 2016-01-20 Completed [facility] 00:00:00 [facility] HPV 2016-01-20 Completed [facility] 00:00:00 [facility] HPV 2016-01-20 Completed [facility] 00:00:00 [facility] HPV 2016-01-20 Completed [facility] 00:00:00 [facility] HPV 2016-01-20 Completed [facility] 00:00:00 [facility] HPV 2016-01-20 Completed [facility] 00:00:00 [facility] HPV 2016-01-20 Completed [facility] 00:00:00 [facility] HPV 2016-01-20 Completed [facility] 00:00:00 [facility] HPV 2016-01-20 Completed [facility] 00:00:00 [facility] HPV 2016-01-20 Completed [facility] 00:00:00 [facility] HPV 2016-01-20 Completed [facility] 00:00:00 [facility] HPV 2016-01-20 Completed [facility] 00:00:00 [facility] HPV 2016-01-20 Completed [facility] 00:00:00 [facility] Influenza Virus 2015-07-08 Completed [facility] y [facility] Vaccine [facility] IM 3+ 00:00:00 [facility] HPV9 2015-07-08 Completed [facility] 00:00:00 [facility] Influenza Virus 2015-07-08 Completed [facility]ine [facility] IM 3+ 00:00:00 [facility] HPV9 2015-07-08 Completed [facility] 00:00:00 [facility] Influenza Virus 2015-07-08 Completed [facility] IM 3+ 00:00:00 [facility] HPV9 2015-07-08 Completed [facility] 00:00:00 [facility] Influenza Virus 2015-07-08 Completed [facility] IM 3+ 00:00:00 [facility] HPV9 2015-07-08 Completed [facility] 00:00:00 [facility] Influenza Virus 2015-07-08 Completed [facility] IM 3+ 00:00:00 [facility] HPV9 2015-07-08 Completed [facility] 00:00:00 [facility] Influenza Virus 2015-07-08 Completed [facility] IM 3+ 00:00:00 [facility] HPV9 2015-07-08 Completed [facility] 00:00:00 [facility] Influenza Virus 2015-07-08 Completed [facility] IM 3+ 00:00:00 [facility] HPV9 2015-07-08 Completed [facility] 00:00:00 [facility] Influenza Virus 2015-07-08 Completed [facility] IM 3+ 00:00:00 [facility] HPV9 2015-07-08 Completed [facility] 00:00:00 [facility] Influenza Virus 2015-07-08 Completed [facility] IM 3+ 00:00:00 [facility] HPV9 2015-07-08 Completed [facility] 00:00:00 [facility] Influenza Virus 2015-07-08 Completed [facility] IM 3+ 00:00:00 [facility] HPV9 2015-07-08 Completed [facility] 00:00:00 [facility] Influenza Virus 2015-07-08 Completed [facility] IM 3+ 00:00:00 [facility] HPV9 2015-07-08 Completed [facility] 00:00:00 [facility] Influenza Virus 2015-07-08 Completed [facility] IM 3+ 00:00:00 [facility] HPV9 2015-07-08 Completed [facility] 00:00:00 [facility] Influenza Virus 2015-07-08 Completed [facility] IM 3+ 00:00:00 [facility] HPV9 2015-07-08 Completed [facility] 00:00:00 [facility] Influenza Virus 2015-07-08 Completed [facility] IM 3+ 00:00:00 [facility] HPV9 2015-07-08 Completed [facility] 00:00:00 [facility] Influenza Virus 2015-07-08 Completed [facility] IM 3+ 00:00:00 [facility] HPV9 2015-07-08 Completed [facility] 00:00:00 [facility] Influenza Virus 2015-07-08 Completed [facility] IM 3+ 00:00:00 [facility] HPV9 2015-07-08 Completed [facility] 00:00:00 [facility] Influenza Virus 2015-07-08 Completed [facility] IM 3+ 00:00:00 [facility] HPV9 2015-07-08 Completed [facility] 00:00:00 [facility] Influenza Virus 2015-07-08 Completed [facility] IM 3+ 00:00:00 [facility] HPV9 2015-07-08 Completed [facility] 00:00:00 [facility] Influenza Virus 2015-07-08 Completed [facility] IM 3+ 00:00:00 [facility] HPV9 2015-07-08 Completed [facility] 00:00:00 [facility] Influenza Virus 2015-07-08 Completed [facility] IM 3+ 00:00:00 [facility] HPV9 2015-07-08 Completed [facility] 00:00:00 [facility] Influenza Virus 2015-07-08 Completed [facility] IM 3+ 00:00:00 [facility] HPV9 2015-07-08 Completed [facility] 00:00:00 [facility] Influenza Virus 2015-07-08 Completed [facility] IM 3+ 00:00:00 [facility] HPV9 2015-07-08 Completed [facility] 00:00:00 [facility] Influenza Virus 2015-07-08 Completed [facility] Vaccine [facility] IM 3+ 00:00:00 [facility] HPV9 2015-07-08 Completed [facility] 00:00:00 [facility] Influenza Virus 2015-07-08 Completed [facility] IM 3+ 00:00:00 [facility] HPV9 2015-07-08 Completed [facility] 00:00:00 [facility] Influenza Virus 2015-07-08 Completed [facility] Vaccine Quad IM 3+ 00:00:00 [facility] HPV9 2015-07-08 Completed [facility] 00:00:00 [facility] Influenza Virus 2015-07-08 Completed [facility] y [facility] Vaccine Quad IM 3+ 00:00:00 [facility] HPV9 2015-07-08 Completed [facility] 00:00:00 [facility] Influenza Virus 2015-07-08 Completed [facility] Vaccine [facility] IM 3+ 00:00:00 [facility] HPV9 2015-07-08 Completed [facility] 00:00:00 [facility] Influenza Virus 2015-07-08 Completed [facility] IM 3+ 00:00:00 [facility] HPV9 2015-07-08 Completed [facility] 00:00:00 [facility] Influenza Virus 2015-07-08 Completed [facility] IM 3+ 00:00:00 [facility] HPV9 2015-07-08 Completed [facility] 00:00:00 [facility] Influenza Virus 2015-07-08 Completed [facility] Vaccine Quad IM 3+ 00:00:00 [facility] HPV9 2015-07-08 Completed [facility] 00:00:00 [facility] Influenza Virus 2015-07-08 Completed [facility] Vaccine [facility] IM 3+ 00:00:00 [facility] HPV9 2015-07-08 Completed [facility] 00:00:00 [facility] Influenza Virus 2015-07-08 Completed [facility] IM 3+ 00:00:00 [facility] HPV9 2015-07-08 Completed [facility] 00:00:00 [facility] Influenza Virus 2015-07-08 Completed [facility] Vaccine [facility] IM 3+ 00:00:00 [facility] HPV9 2015-07-08 Completed [facility] 00:00:00 [facility] Influenza Virus 2015-07-08 Completed [facility] y [facility] Vaccine Quad IM 3+ 00:00:00 [facility] HPV9 2015-07-08 Completed [facility] 00:00:00 [facility] Influenza Virus 2015-07-08 Completed [facility] Vaccine [facility] IM 3+ 00:00:00 [facility] HPV9 2015-07-08 Completed [facility] 00:00:00 [facility] Influenza Virus 2015-07-08 Completed [facility] y [facility] Vaccine Quad IM 3+ 00:00:00 [facility] HPV9 2015-07-08 Completed [facility] 00:00:00 [facility] Influenza Virus 2015-07-08 Completed [facility] y [facility] Vaccine [facility] IM 3+ 00:00:00 [facility] HPV9 2015-07-08 Completed [facility] 00:00:00 [facility] Influenza Virus 2015-07-08 Completed [facility] y [facility] Vaccine Quad IM 3+ 00:00:00 [facility] HPV9 2015-07-08 Completed [facility] 00:00:00 [facility] Influenza Virus 2015-07-08 Completed [facility] Vaccine [facility] IM 3+ 00:00:00 [facility] HPV9 2015-07-08 Completed [facility] 00:00:00 [facility] Influenza Virus 2015-07-08 Completed [facility] y [facility] Vaccine [facility] IM 3+ 00:00:00 [facility] HPV9 2015-07-08 Completed [facility] 00:00:00 [facility] Influenza Virus 2015-07-08 Completed [facility] y [facility] Vaccine Quad IM 3+ 00:00:00 [facility] HPV9 2015-07-08 Completed [facility] 00:00:00 [facility] Influenza Virus 2015-07-08 Completed [facility] y [facility] Vaccine Quad IM 3+ 00:00:00 [facility] HPV9 2015-07-08 Completed [facility] 00:00:00 [facility] Influenza Virus 2015-07-08 Completed [facility] y [facility] Vaccine Quad IM 3+ 00:00:00 [facility] HPV9 2015-07-08 Completed [facility] 00:00:00 [facility] Influenza Virus 2015-07-08 Completed [facility] y [facility] Vaccine Quad IM 3+ 00:00:00 [facility] HPV9 2015-07-08 Completed [facility] 00:00:00 [facility] Influenza Virus 2015-07-08 Completed [facility] y [facility] Vaccine Quad IM 3+ 00:00:00 [facility] HPV9 2015-07-08 Completed [facility] 00:00:00 [facility] Influenza Virus 2015-07-08 Completed [facility] y [facility] Vaccine Quad IM 3+ 00:00:00 [facility] HPV9 2015-07-08 Completed [facility] 00:00:00 [facility] Influenza Virus 2015-07-08 Completed [facility] y [facility] Vaccine Quad IM 3+ 00:00:00 [facility] HPV9 2015-07-08 Completed [facility] 00:00:00 [facility] Influenza Virus 2015-07-08 Completed [facility] y [facility] Vaccine Quad IM 3+ 00:00:00 [facility] HPV9 2015-07-08 Completed [facility] 00:00:00 [facility] Influenza Virus 2015-07-08 Completed [facility] y [facility] Vaccine Quad IM 3+ 00:00:00 [facility] HPV9 2015-07-08 Completed [facility] 00:00:00 [facility] Influenza Virus 2015-07-08 Completed [facility] y [facility] Vaccine Quad IM 3+ 00:00:00 [facility] HPV9 2015-07-08 Completed [facility] 00:00:00 [facility] Influenza Virus 2015-07-08 Completed [facility] y [facility] Vaccine Quad IM 3+ 00:00:00 [facility] HPV9 2015-07-08 Completed [facility] 00:00:00 [facility] Influenza Virus 2015-07-08 Completed [facility] y [facility] Vaccine Quad IM 3+ 00:00:00 [facility] HPV9 2015-07-08 Completed [facility] 00:00:00 [facility] Influenza Virus 2015-07-08 Completed [facility] Vaccine Quad IM 3+ 00:00:00 [facility] HPV9 2015-07-08 Completed [facility] 00:00:00 [facility] Influenza Virus 2015-07-08 Completed [facility] Vaccine Quad IM 3+ 00:00:00 [facility] HPV9 2015-07-08 Completed [facility] 00:00:00 [facility] Influenza Virus 2015-07-08 Completed [facility] IM 3+ 00:00:00 [facility] HPV9 2015-07-08 Completed [facility] 00:00:00 [facility] Influenza Virus 2015-07-08 Completed [facility] y [facility] Vaccine Quad IM 3+ 00:00:00 [facility] HPV9 2015-07-08 Completed [facility] 00:00:00 [facility] Influenza Virus 2015-07-08 Completed [facility] y [facility] Vaccine Quad IM 3+ 00:00:00 [facility] HPV9 2015-07-08 Completed [facility] 00:00:00 [facility] Influenza Virus 2015-07-08 Completed [facility] y [facility] Vaccine Quad IM 3+ 00:00:00 [facility] HPV9 2015-07-08 Completed [facility] 00:00:00 [facility] Influenza Virus 2015-07-08 Completed [facility] Vaccine Quad IM 3+ 00:00:00 [facility] HPV9 2015-07-08 Completed [facility] 00:00:00 [facility] Influenza Virus 2015-07-08 Completed [facility] IM 3+ 00:00:00 [facility] HPV9 2015-07-08 Completed [facility] 00:00:00 [facility] Influenza Virus 2015-07-08 Completed [facility] y [facility] Vaccine Quad IM 3+ 00:00:00 [facility] HPV9 2015-07-08 Completed [facility] 00:00:00 [facility] Influenza Virus 2015-07-08 Completed [facility] IM 3+ 00:00:00 [facility] HPV9 2015-07-08 Completed [facility] 00:00:00 [facility] Influenza Virus 2015-07-08 Completed [facility] IM 3+ 00:00:00 [facility] HPV9 2015-07-08 Completed [facility] 00:00:00 [facility] Influenza Virus 2015-07-08 Completed [facility] IM 3+ 00:00:00 [facility] HPV9 2015-07-08 Completed [facility] 00:00:00 [facility] Influenza Virus 2015-07-08 Completed [facility] IM 3+ 00:00:00 [facility] HPV9 2015-07-08 Completed [facility] 00:00:00 [facility] Influenza Virus 2015-07-08 Completed [facility] IM 3+ 00:00:00 [facility] HPV9 2015-07-08 Completed [facility] 00:00:00 [facility] Influenza Virus 2015-07-08 Completed [facility] IM 3+ 00:00:00 [facility] HPV9 2015-07-08 Completed [facility] 00:00:00 [facility] Influenza Virus 2015-07-08 Completed [facility] IM 3+ 00:00:00 [facility] HPV9 2015-07-08 Completed [facility] 00:00:00 [facility] Influenza Virus 2015-07-08 Completed [facility] IM 3+ 00:00:00 [facility] HPV9 2015-07-08 Completed [facility] 00:00:00 [facility] Influenza Virus 2015-07-08 Completed [facility] IM 3+ 00:00:00 [facility] HPV9 2015-07-08 Completed [facility] 00:00:00 [facility] Influenza Virus 2015-07-08 Completed [facility] IM 3+ 00:00:00 [facility] HPV9 2015-07-08 Completed [facility] 00:00:00 [facility] Influenza Virus 2015-07-08 Completed [facility] IM 3+ 00:00:00 [facility] HPV9 2015-07-08 Completed [facility] 00:00:00 [facility] Influenza Virus 2015-07-08 Completed [facility] IM 3+ 00:00:00 [facility] HPV9 2015-07-08 Completed [facility] 00:00:00 [facility] Influenza Virus 2015-07-08 Completed [facility] IM 3+ 00:00:00 [facility] HPV9 2015-07-08 Completed [facility] 00:00:00 [facility] Influenza Virus 2015-07-08 Completed [facility] IM 3+ 00:00:00 [facility] HPV9 2015-07-08 Completed [facility] 00:00:00 [facility] Influenza Virus 2015-07-08 Completed [facility] IM 3+ 00:00:00 [facility] HPV9 2015-07-08 Completed [facility] 00:00:00 [facility] Influenza Virus 2015-07-08 Completed [facility] IM 3+ 00:00:00 [facility] HPV9 2015-07-08 Completed [facility] 00:00:00 [facility] Influenza Virus 2015-07-08 Completed [facility] IM 3+ 00:00:00 [facility] HPV9 2015-07-08 Completed [facility] 00:00:00 [facility] Influenza Virus 2015-07-08 Completed [facility] IM 3+ 00:00:00 [facility] HPV9 2015-07-08 Completed [facility] 00:00:00 [facility] Influenza Virus 2015-07-08 Completed [facility] IM 3+ 00:00:00 [facility] HPV9 2015-07-08 Completed [facility] 00:00:00 [facility] Influenza Virus 2015-07-08 Completed [facility] IM 3+ 00:00:00 [facility] HPV9 2015-07-08 Completed [facility] 00:00:00 [facility] Influenza Virus 2015-07-08 Completed [facility] IM 3+ 00:00:00 [facility] HPV9 2015-07-08 Completed [facility] 00:00:00 [facility] Influenza Virus 2015-07-08 Completed [facility] IM 3+ 00:00:00 [facility] HPV9 2015-07-08 Completed [facility] 00:00:00 [facility] Influenza Virus 2015-07-08 Completed [facility] IM 3+ 00:00:00 [facility] HPV9 2015-07-08 Completed [facility] 00:00:00 [facility] Influenza Virus 2015-07-08 Completed [facility] IM 3+ 00:00:00 [facility] HPV9 2015-07-08 Completed [facility] 00:00:00 [facility] Influenza Virus 2015-07-08 Completed [facility] IM 3+ 00:00:00 [facility] HPV9 2015-07-08 Completed [facility] 00:00:00 [facility] Influenza Virus 2015-07-08 Completed [facility] IM 3+ 00:00:00 [facility] HPV9 2015-07-08 Completed [facility] 00:00:00 [facility] Influenza Virus 2015-07-08 Completed [facility] IM 3+ 00:00:00 [facility] HPV9 2015-07-08 Completed [facility] 00:00:00 [facility] Influenza Virus 2015-07-08 Completed [facility] IM 3+ 00:00:00 [facility] HPV9 2015-07-08 Completed [facility] 00:00:00 [facility] Influenza Virus 2015-07-08 Completed [facility] IM 3+ 00:00:00 [facility] HPV9 2015-07-08 Completed [facility] 00:00:00 [facility] Influenza Virus 2015-07-08 Completed [facility] IM 3+ 00:00:00 [facility] HPV9 2015-07-08 Completed [facility] 00:00:00 [facility] Influenza Virus 2015-07-08 Completed [facility] IM 3+ 00:00:00 [facility] HPV9 2015-07-08 Completed [facility] 00:00:00 [facility] Influenza Virus 2015-07-08 Completed [facility] IM 3+ 00:00:00 [facility] HPV9 2015-07-08 Completed [facility] 00:00:00 [facility] Influenza Virus 2015-07-08 Completed [facility] IM 3+ 00:00:00 [facility] HPV9 2015-07-08 Completed [facility] 00:00:00 [facility] Influenza Virus 2015-07-08 Completed [facility] IM 3+ 00:00:00 [facility] HPV9 2015-07-08 Completed [facility] 00:00:00 [facility] Influenza Virus 2015-07-08 Completed [facility] IM 3+ 00:00:00 [facility] HPV9 2015-07-08 Completed [facility] 00:00:00 [facility] Influenza Virus 2015-07-08 Completed [facility] IM 3+ 00:00:00 [facility] HPV9 2015-07-08 Completed [facility] 00:00:00 [facility] Influenza Virus 2015-07-08 Completed [facility] IM 3+ 00:00:00 [facility] HPV9 2015-07-08 Completed [facility] 00:00:00 [facility] Influenza Virus 2015-07-08 Completed [facility] IM 3+ 00:00:00 [facility] HPV9 2015-07-08 Completed [facility] 00:00:00 [facility] Influenza Virus 2015-07-08 Completed [facility] IM 3+ 00:00:00 [facility] HPV9 2015-07-08 Completed [facility] 00:00:00 [facility] Influenza Virus 2015-07-08 Completed [facility] IM 3+ 00:00:00 [facility] HPV9 2015-07-08 Completed [facility] 00:00:00 [facility] Influenza Virus 2015-07-08 Completed [facility] IM 3+ 00:00:00 [facility] HPV9 2015-07-08 Completed [facility] 00:00:00 [facility] Influenza Virus 2015-07-08 Completed [facility] IM 3+ 00:00:00 [facility] HPV9 2015-07-08 Completed [facility] 00:00:00 [facility] Influenza Virus 2015-07-08 Completed [facility] IM 3+ 00:00:00 [facility] HPV9 2015-07-08 Completed [facility] 00:00:00 [facility] Influenza Virus 2015-07-08 Completed [facility] IM 3+ 00:00:00 [facility] HPV9 2015-07-08 Completed [facility] 00:00:00 [facility] Influenza Virus 2014-04-02 Completed [facility] y of Vaccine (3+ yrs) 00:00:00 [facility] Influenza Virus 2014-04-02 Completed [facility] y of Vaccine (3+ yrs) 00:00:00 [facility] Influenza Virus 2014-04-02 Completed [facility] y of Vaccine (3+ yrs) 00:00:00 [facility] Influenza Virus 2014-04-02 Completed [facility] y of Vaccine (3+ yrs) 00:00:00 [facility] Influenza Virus 2014-04-02 Completed [facility] y of Vaccine (3+ yrs) 00:00:00 [facility] Influenza Virus 2014-04-02 Completed [facility] y of Vaccine (3+ yrs) 00:00:00 [facility] Influenza Virus 2014-04-02 Completed [facility] y of Vaccine (3+ yrs) 00:00:00 [facility] Influenza Virus 2014-04-02 Completed [facility] y of Vaccine (3+ yrs) 00:00:00 [facility] Influenza Virus 2014-04-02 Completed [facility] y of Vaccine (3+ yrs) 00:00:00 [facility] Influenza Virus 2014-04-02 Completed [facility] y of Vaccine (3+ yrs) 00:00:00 [facility] Influenza Virus 2014-04-02 Completed [facility] y of Vaccine (3+ yrs) 00:00:00 [facility] Influenza Virus 2014-04-02 Completed [facility] y of Vaccine (3+ yrs) 00:00:00 [facility] Influenza Virus 2014-04-02 Completed [facility] y of Vaccine (3+ yrs) 00:00:00 [facility] Influenza Virus 2014-04-02 Completed [facility] y of Vaccine (3+ yrs) 00:00:00 [facility] Influenza Virus 2014-04-02 Completed [facility] of Vaccine (3+ yrs) 00:00:00 [facility] Influenza Virus 2014-04-02 Completed [facility] y of Vaccine (3+ yrs) 00:00:00 [facility] Influenza Virus 2014-04-02 Completed [facility] Vaccine (3+ yrs) 00:00:00 [facility] Influenza Virus 2014-04-02 Completed [facility] Vaccine (3+ yrs) 00:00:00 [facility] Influenza Virus 2014-04-02 Completed [facility] Vaccine (3+ yrs) 00:00:00 [facility] Influenza Virus 2014-04-02 Completed [facility] Vaccine (3+ yrs) 00:00:00 [facility] Influenza Virus 2014-04-02 Completed [facility] Vaccine (3+ yrs) 00:00:00 [facility] Influenza Virus 2014-04-02 Completed [facility] Vaccine (3+ yrs) 00:00:00 [facility] Influenza Virus 2014-04-02 Completed [facility] Vaccine (3+ yrs) 00:00:00 [facility] Influenza Virus 2014-04-02 Completed [facility] Vaccine (3+ yrs) 00:00:00 [facility] Influenza Virus 2014-04-02 Completed [facility] Vaccine (3+ yrs) 00:00:00 [facility] Influenza Virus 2014-04-02 Completed [facility] Vaccine (3+ yrs) 00:00:00 [facility] Influenza Virus 2014-04-02 Completed [facility] Vaccine (3+ yrs) 00:00:00 [facility] Influenza Virus 2014-04-02 Completed [facility] Vaccine (3+ yrs) 00:00:00 [facility] Influenza Virus 2014-04-02 Completed [facility] Vaccine (3+ yrs) 00:00:00 [facility] Influenza Virus 2014-04-02 Completed [facility] Vaccine (3+ yrs) 00:00:00 [facility] Influenza Virus 2014-04-02 Completed [facility] Vaccine (3+ yrs) 00:00:00 [facility] Influenza Virus 2014-04-02 Completed [facility] Vaccine (3+ yrs) 00:00:00 [facility] Influenza Virus 2014-04-02 Completed [facility] Vaccine (3+ yrs) 00:00:00 [facility] Influenza Virus 2014-04-02 Completed [facility] Vaccine (3+ yrs) 00:00:00 [facility] Influenza Virus 2014-04-02 Completed [facility] Vaccine (3+ yrs) 00:00:00 [facility] Influenza Virus 2014-04-02 Completed [facility] Vaccine (3+ yrs) 00:00:00 [facility] Influenza Virus 2014-04-02 Completed [facility] Vaccine (3+ yrs) 00:00:00 [facility] Influenza Virus 2014-04-02 Completed [facility] Vaccine (3+ yrs) 00:00:00 [facility] Influenza Virus 2014-04-02 Completed [facility] Vaccine (3+ yrs) 00:00:00 [facility] Influenza Virus 2014-04-02 Completed [facility] Vaccine (3+ yrs) 00:00:00 [facility] Influenza Virus 2014-04-02 Completed [facility] Vaccine (3+ yrs) 00:00:00 [facility] Influenza Virus 2014-04-02 Completed [facility] Vaccine (3+ yrs) 00:00:00 [facility] Influenza Virus 2014-04-02 Completed [facility] Vaccine (3+ yrs) 00:00:00 [facility] Influenza Virus 2014-04-02 Completed [facility] Vaccine (3+ yrs) 00:00:00 [facility] Influenza Virus 2014-04-02 Completed [facility] Vaccine (3+ yrs) 00:00:00 [facility] Influenza Virus 2014-04-02 Completed [facility] Vaccine (3+ yrs) 00:00:00 [facility] Influenza Virus 2014-04-02 Completed [facility] Vaccine (3+ yrs) 00:00:00 [facility] Influenza Virus 2014-04-02 Completed [facility] Vaccine (3+ yrs) 00:00:00 [facility] Influenza Virus 2014-04-02 Completed [facility] Vaccine (3+ yrs) 00:00:00 [facility] Influenza Virus 2014-04-02 Completed [facility] Vaccine (3+ yrs) 00:00:00 [facility] Influenza Virus 2014-04-02 Completed [facility] Vaccine (3+ yrs) 00:00:00 [facility] Influenza Virus 2014-04-02 Completed [facility] Vaccine (3+ yrs) 00:00:00 [facility] Influenza Virus 2014-04-02 Completed [facility] Vaccine (3+ yrs) 00:00:00 [facility] Influenza Virus 2014-04-02 Completed [facility] Vaccine (3+ yrs) 00:00:00 [facility] Influenza Virus 2014-04-02 Completed [facility] Vaccine (3+ yrs) 00:00:00 [facility] Influenza Virus 2014-04-02 Completed [facility] Vaccine (3+ yrs) 00:00:00 [facility] Influenza Virus 2014-04-02 Completed [facility] Vaccine (3+ yrs) 00:00:00 [facility] Influenza Virus 2014-04-02 Completed [facility] Vaccine (3+ yrs) 00:00:00 [facility] Influenza Virus 2014-04-02 Completed [facility] Vaccine (3+ yrs) 00:00:00 [facility] Influenza Virus 2014-04-02 Completed [facility] Vaccine (3+ yrs) 00:00:00 [facility] Influenza Virus 2014-04-02 Completed [facility] Vaccine (3+ yrs) 00:00:00 [facility] Influenza Virus 2014-04-02 Completed [facility] Vaccine (3+ yrs) 00:00:00 [facility] Influenza Virus 2014-04-02 Completed [facility] Vaccine (3+ yrs) 00:00:00 [facility] Influenza Virus 2014-04-02 Completed [facility] Vaccine (3+ yrs) 00:00:00 [facility] Influenza Virus 2014-04-02 Completed [facility] Vaccine (3+ yrs) 00:00:00 [facility] Influenza Virus 2014-04-02 Completed [facility] Vaccine (3+ yrs) 00:00:00 [facility] Influenza Virus 2014-04-02 Completed [facility] Vaccine (3+ yrs) 00:00:00 [facility] Influenza Virus 2014-04-02 Completed [facility] Vaccine (3+ yrs) 00:00:00 [facility] Influenza Virus 2014-04-02 Completed [facility] Vaccine (3+ yrs) 00:00:00 [facility] Influenza Virus 2014-04-02 Completed [facility] Vaccine (3+ yrs) 00:00:00 [facility] Influenza Virus 2014-04-02 Completed [facility] Vaccine (3+ yrs) 00:00:00 [facility] Influenza Virus 2014-04-02 Completed [facility] Vaccine (3+ yrs) 00:00:00 [facility] Influenza Virus 2014-04-02 Completed [facility] Vaccine (3+ yrs) 00:00:00 [facility] Influenza Virus 2014-04-02 Completed [facility] Vaccine (3+ yrs) 00:00:00 [facility] Influenza Virus 2014-04-02 Completed [facility] Vaccine (3+ yrs) 00:00:00 [facility] Influenza Virus 2014-04-02 Completed [facility] Vaccine (3+ yrs) 00:00:00 [facility] Influenza Virus 2014-04-02 Completed [facility] Vaccine (3+ yrs) 00:00:00 [facility] Influenza Virus 2014-04-02 Completed [facility] Vaccine (3+ yrs) 00:00:00 [facility] Influenza Virus 2014-04-02 Completed [facility] Vaccine (3+ yrs) 00:00:00 [facility] Influenza Virus 2014-04-02 Completed [facility] Vaccine (3+ yrs) 00:00:00 [facility] Influenza Virus 2014-04-02 Completed [facility] Vaccine (3+ yrs) 00:00:00 [facility] Influenza Virus 2014-04-02 Completed [facility] Vaccine (3+ yrs) 00:00:00 [facility] Influenza Virus 2014-04-02 Completed [facility] Vaccine (3+ yrs) 00:00:00 [facility] Influenza Virus 2014-04-02 Completed [facility] Vaccine (3+ yrs) 00:00:00 [facility] Influenza Virus 2014-04-02 Completed [facility] Vaccine (3+ yrs) 00:00:00 [facility] Influenza Virus 2014-04-02 Completed [facility] Vaccine (3+ yrs) 00:00:00 [facility] Influenza Virus 2014-04-02 Completed [facility] Vaccine (3+ yrs) 00:00:00 [facility] Influenza Virus 2014-04-02 Completed [facility] Vaccine (3+ yrs) 00:00:00 [facility] Influenza Virus 2014-04-02 Completed [facility] Vaccine (3+ yrs) 00:00:00 [facility] Influenza Virus 2014-04-02 Completed [facility] Vaccine (3+ yrs) 00:00:00 [facility] Influenza Virus 2014-04-02 Completed [facility] Vaccine (3+ yrs) 00:00:00 [facility] Influenza Virus 2014-04-02 Completed [facility] Vaccine (3+ yrs) 00:00:00 [facility] Influenza Virus 2014-04-02 Completed [facility] Vaccine (3+ yrs) 00:00:00 [facility] Influenza Virus 2014-04-02 Completed [facility] Vaccine (3+ yrs) 00:00:00 [facility] Influenza Virus 2014-04-02 Completed [facility] Vaccine (3+ yrs) 00:00:00 [facility] Influenza Virus 2014-04-02 Completed [facility] Vaccine (3+ yrs) 00:00:00 [facility] Influenza Virus 2014-04-02 Completed [facility] Vaccine (3+ yrs) 00:00:00 [facility] Influenza Virus 2014-04-02 Completed [facility] Vaccine (3+ yrs) 00:00:00 [facility] Influenza Virus 2014-04-02 Completed [facility] Vaccine (3+ yrs) 00:00:00 [facility] Influenza Virus 2014-04-02 Completed [facility] Vaccine (3+ yrs) 00:00:00 [facility] Influenza Virus 2014-04-02 Completed [facility] Vaccine (3+ yrs) 00:00:00 [facility] Influenza Virus 2014-04-02 Completed [facility] Vaccine (3+ yrs) 00:00:00 [facility] Influenza Virus 2014-04-02 Completed [facility] Vaccine (3+ yrs) 00:00:00 [facility] Influenza Virus 2014-04-02 Completed [facility] Vaccine (3+ yrs) 00:00:00 [facility] Influenza Virus 2014-04-02 Completed [facility] Vaccine (3+ yrs) 00:00:00 [facility] Influenza Virus 2013-05-22 Completed [facility] Vaccine (3+ yrs) 00:00:00 [facility] Meningococcal 2013-05-22 Completed [facility] Polysaccharide 00:00:00 [place] [facility] (groups A, C, Y and Branc h W-135) conjugate vaccine (MCV4P) TDAP 2013-05-22 Completed [facility] 00:00:00 [facility] Influenza Virus 2013-05-22 Completed [facility] Vaccine (3+ yrs) 00:00:00 [facility] Meningococcal 2013-05-22 Completed [facility] Polysaccharide 00:00:00 [facility] (groups A, C, Y and Branc h W-135) conjugate vaccine (MCV4P) TDAP 2013-05-22 Completed [facility] 00:00:00 [facility] Influenza Virus 2013-05-22 Completed [facility] Vaccine (3+ yrs) 00:00:00 [facility] Meningococcal 2013-05-22 Completed [facility] Polysaccharide 00:00:00 [facility] (groups A, C, Y and Branc h W-135) conjugate vaccine (MCV4P) TDAP 2013-05-22 Completed [facility] 00:00:00 [facility] Influenza Virus 2013-05-22 Completed [facility] Vaccine (3+ yrs) 00:00:00 [facility] Meningococcal 2013-05-22 Completed [facility] Polysaccharide 00:00:00 [facility] (groups A, C, Y and Branc h W-135) conjugate vaccine (MCV4P) TDAP 2013-05-22 Completed [facility] 00:00:00 [facility] Influenza Virus 2013-05-22 Completed [facility] Vaccine (3+ yrs) 00:00:00 [facility] Meningococcal 2013-05-22 Completed [facility] Polysaccharide 00:00:00 [facility] (groups A, C, Y and Branc h W-135) conjugate vaccine (MCV4P) TDAP 2013-05-22 Completed [facility] 00:00:00 [facility] Influenza Virus 2013-05-22 Completed [facility] Vaccine (3+ yrs) 00:00:00 [facility] Meningococcal 2013-05-22 Completed [facility] Polysaccharide 00:00:00 [facility] (groups A, C, Y and Branc h W-135) conjugate vaccine (MCV4P) TDAP 2013-05-22 Completed [facility] 00:00:00 [facility] Influenza Virus 2013-05-22 Completed [facility] Vaccine (3+ yrs) 00:00:00 [facility] Meningococcal 2013-05-22 Completed [facility] Polysaccharide 00:00:00 [facility] (groups A, C, Y and Branc h W-135) conjugate vaccine (MCV4P) TDAP 2013-05-22 Completed [facility] 00:00:00 [facility] Influenza Virus 2013-05-22 Completed [facility] Vaccine (3+ yrs) 00:00:00 [facility] Meningococcal 2013-05-22 Completed [facility] Polysaccharide 00:00:00 [facility] (groups A, C, Y and Branc h W-135) conjugate vaccine (MCV4P) TDAP 2013-05-22 Completed [facility] 00:00:00 [facility] Influenza Virus 2013-05-22 Completed [facility] Vaccine (3+ yrs) 00:00:00 [facility] Meningococcal 2013-05-22 Completed [facility] Polysaccharide 00:00:00 [facility] (groups A, C, Y and Branc h W-135) conjugate vaccine (MCV4P) TDAP 2013-05-22 Completed [facility] 00:00:00 [facility] Influenza Virus 2013-05-22 Completed [facility] Vaccine (3+ yrs) 00:00:00 [facility] Meningococcal 2013-05-22 Completed [facility] Polysaccharide 00:00:00 [facility] (groups A, C, Y and Branc h W-135) conjugate vaccine (MCV4P) TDAP 2013-05-22 Completed [facility] 00:00:00 [facility] Influenza Virus 2013-05-22 Completed [facility] Vaccine (3+ yrs) 00:00:00 [facility] Meningococcal 2013-05-22 Completed [facility] Polysaccharide 00:00:00 [facility] (groups A, C, Y and Branc h W-135) conjugate vaccine (MCV4P) TDAP 2013-05-22 Completed [facility] 00:00:00 [facility] Influenza Virus 2013-05-22 Completed [facility] Vaccine (3+ yrs) 00:00:00 [facility] Meningococcal 2013-05-22 Completed [facility] Polysaccharide 00:00:00 [facility] (groups A, C, Y and Branc h W-135) conjugate vaccine (MCV4P) TDAP 2013-05-22 Completed [facility] 00:00:00 [facility] Influenza Virus 2013-05-22 Completed [facility] Vaccine (3+ yrs) 00:00:00 [facility] Meningococcal 2013-05-22 Completed [facility] Polysaccharide 00:00:00 [facility] (groups A, C, Y and Branc h W-135) conjugate vaccine (MCV4P) TDAP 2013-05-22 Completed [facility] 00:00:00 [facility] Influenza Virus 2013-05-22 Completed [facility] Vaccine (3+ yrs) 00:00:00 [facility] Meningococcal 2013-05-22 Completed [facility] Polysaccharide 00:00:00 [place] [facility] (groups A, C, Y and Branc h W-135) conjugate vaccine (MCV4P) TDAP 2013-05-22 Completed [facility] 00:00:00 [facility] Influenza Virus 2013-05-22 Completed [facility] Vaccine (3+ yrs) 00:00:00 [facility] Meningococcal 2013-05-22 Completed [facility] Polysaccharide 00:00:00 [place] [facility] (groups A, C, Y and Branc h W-135) conjugate vaccine (MCV4P) TDAP 2013-05-22 Completed [facility] 00:00:00 [facility] Influenza Virus 2013-05-22 Completed [facility] Vaccine (3+ yrs) 00:00:00 [facility] Meningococcal 2013-05-22 Completed [facility] Polysaccharide 00:00:00 [facility] (groups A, C, Y and Branc h W-135) conjugate vaccine (MCV4P) TDAP 2013-05-22 Completed [facility] 00:00:00 [facility] Influenza Virus 2013-05-22 Completed [facility] Vaccine (3+ yrs) 00:00:00 [facility] Meningococcal 2013-05-22 Completed [facility] Polysaccharide 00:00:00 [place] [facility] (groups A, C, Y and Branc h W-135) conjugate vaccine (MCV4P) TDAP 2013-05-22 Completed [facility] 00:00:00 [facility] Influenza Virus 2013-05-22 Completed [facility] Vaccine (3+ yrs) 00:00:00 [facility] Meningococcal 2013-05-22 Completed [facility] Polysaccharide 00:00:00 [facility] (groups A, C, Y and Branc h W-135) conjugate vaccine (MCV4P) TDAP 2013-05-22 Completed [facility] 00:00:00 [facility] Influenza Virus 2013-05-22 Completed [facility] Vaccine (3+ yrs) 00:00:00 [facility] Meningococcal 2013-05-22 Completed [facility] Polysaccharide 00:00:00 [place] [facility] (groups A, C, Y and Branc h W-135) conjugate vaccine (MCV4P) TDAP 2013-05-22 Completed [facility] 00:00:00 [facility] Influenza Virus 2013-05-22 Completed [facility] Vaccine (3+ yrs) 00:00:00 [facility] Meningococcal 2013-05-22 Completed [facility] Polysaccharide 00:00:00 [place] [facility] (groups A, C, Y and Branc h W-135) conjugate vaccine (MCV4P) TDAP 2013-05-22 Completed [facility] 00:00:00 [facility] Influenza Virus 2013-05-22 Completed [facility] Vaccine (3+ yrs) 00:00:00 [facility] Meningococcal 2013-05-22 Completed [facility] Polysaccharide 00:00:00 [place] [facility] (groups A, C, Y and Branc h W-135) conjugate vaccine (MCV4P) TDAP 2013-05-22 Completed [facility] 00:00:00 [facility] Influenza Virus 2013-05-22 Completed [facility] Vaccine (3+ yrs) 00:00:00 [facility] Meningococcal 2013-05-22 Completed [facility] Polysaccharide 00:00:00 [place] [facility] (groups A, C, Y and Branc h W-135) conjugate vaccine (MCV4P) TDAP 2013-05-22 Completed [facility] 00:00:00 [facility] Influenza Virus 2013-05-22 Completed [facility] Vaccine (3+ yrs) 00:00:00 [facility] Meningococcal 2013-05-22 Completed [facility] Polysaccharide 00:00:00 [place] [facility] (groups A, C, Y and Branc h W-135) conjugate vaccine (MCV4P) TDAP 2013-05-22 Completed [facility] 00:00:00 [facility] Influenza Virus 2013-05-22 Completed [facility] Vaccine (3+ yrs) 00:00:00 [facility] Meningococcal 2013-05-22 Completed [facility] Polysaccharide 00:00:00 [place] [facility] (groups A, C, Y and Branc h W-135) conjugate vaccine (MCV4P) TDAP 2013-05-22 Completed [facility] 00:00:00 [facility] Influenza Virus 2013-05-22 Completed [facility] Vaccine (3+ yrs) 00:00:00 [facility] Meningococcal 2013-05-22 Completed [facility] Polysaccharide 00:00:00 [place] [facility] (groups A, C, Y and Branc h W-135) conjugate vaccine (MCV4P) TDAP 2013-05-22 Completed [facility] 00:00:00 [facility] Influenza Virus 2013-05-22 Completed [facility] Vaccine (3+ yrs) 00:00:00 [facility] Meningococcal 2013-05-22 Completed [facility] Polysaccharide 00:00:00 [place] [facility] (groups A, C, Y and Branc h W-135) conjugate vaccine (MCV4P) TDAP 2013-05-22 Completed [facility] 00:00:00 [facility] Influenza Virus 2013-05-22 Completed [facility] Vaccine (3+ yrs) 00:00:00 [facility] Meningococcal 2013-05-22 Completed [facility] Polysaccharide 00:00:00 [facility] (groups A, C, Y and Branc h W-135) conjugate vaccine (MCV4P) TDAP 2013-05-22 Completed [facility] 00:00:00 [facility] Influenza Virus 2013-05-22 Completed [facility] Vaccine (3+ yrs) 00:00:00 [facility] Meningococcal 2013-05-22 Completed [facility] Polysaccharide 00:00:00 [place] [facility] (groups A, C, Y and Branc h W-135) conjugate vaccine (MCV4P) TDAP 2013-05-22 Completed [facility] 00:00:00 [facility] Influenza Virus 2013-05-22 Completed [facility] Vaccine (3+ yrs) 00:00:00 [facility] Meningococcal 2013-05-22 Completed [facility] Polysaccharide 00:00:00 [place] [facility] (groups A, C, Y and Branc h W-135) conjugate vaccine (MCV4P) TDAP 2013-05-22 Completed [facility] 00:00:00 [facility] Influenza Virus 2013-05-22 Completed [facility] Vaccine (3+ yrs) 00:00:00 [facility] Meningococcal 2013-05-22 Completed [facility] Polysaccharide 00:00:00 [place] [facility] (groups A, C, Y and Branc h W-135) conjugate vaccine (MCV4P) TDAP 2013-05-22 Completed [facility] 00:00:00 [facility] Influenza Virus 2013-05-22 Completed [facility] Vaccine (3+ yrs) 00:00:00 [facility] Meningococcal 2013-05-22 Completed [facility] Polysaccharide 00:00:00 [place] [facility] (groups A, C, Y and Branc h W-135) conjugate vaccine (MCV4P) TDAP 2013-05-22 Completed [facility] 00:00:00 [facility] Influenza Virus 2013-05-22 Completed [facility] Vaccine (3+ yrs) 00:00:00 [facility] Meningococcal 2013-05-22 Completed [facility] Polysaccharide 00:00:00 [place] [facility] (groups A, C, Y and Branc h W-135) conjugate vaccine (MCV4P) TDAP 2013-05-22 Completed [facility] 00:00:00 [facility] Influenza Virus 2013-05-22 Completed [facility] Vaccine (3+ yrs) 00:00:00 [facility] Meningococcal 2013-05-22 Completed [facility] Polysaccharide 00:00:00 [place] [facility] (groups A, C, Y and Branc h W-135) conjugate vaccine (MCV4P) TDAP 2013-05-22 Completed [facility] 00:00:00 [facility] Influenza Virus 2013-05-22 Completed [facility] Vaccine (3+ yrs) 00:00:00 [facility] Meningococcal 2013-05-22 Completed [facility] Polysaccharide 00:00:00 [place] [facility] (groups A, C, Y and Branc h W-135) conjugate vaccine (MCV4P) TDAP 2013-05-22 Completed [facility] 00:00:00 [facility] Influenza Virus 2013-05-22 Completed [facility] Vaccine (3+ yrs) 00:00:00 [facility] Meningococcal 2013-05-22 Completed [facility] Polysaccharide 00:00:00 [place] [facility] (groups A, C, Y and Branc h W-135) conjugate vaccine (MCV4P) TDAP 2013-05-22 Completed [facility] 00:00:00 [facility] Influenza Virus 2013-05-22 Completed [facility] Vaccine (3+ yrs) 00:00:00 [facility] Meningococcal 2013-05-22 Completed [facility] Polysaccharide 00:00:00 [place] [facility] (groups A, C, Y and Branc h W-135) conjugate vaccine (MCV4P) TDAP 2013-05-22 Completed [facility] 00:00:00 [facility] Influenza Virus 2013-05-22 Completed [facility] Vaccine (3+ yrs) 00:00:00 [facility] Meningococcal 2013-05-22 Completed [facility] Polysaccharide 00:00:00 [facility] (groups A, C, Y and Branc h W-135) conjugate vaccine (MCV4P) TDAP 2013-05-22 Completed [facility] 00:00:00 [facility] Influenza Virus 2013-05-22 Completed [facility] Vaccine (3+ yrs) 00:00:00 [facility] Meningococcal 2013-05-22 Completed [facility] Polysaccharide 00:00:00 [facility] (groups A, C, Y and Branc h W-135) conjugate vaccine (MCV4P) TDAP 2013-05-22 Completed [facility] 00:00:00 [facility] Influenza Virus 2013-05-22 Completed [facility] Vaccine (3+ yrs) 00:00:00 [facility] Meningococcal 2013-05-22 Completed [facility] Polysaccharide 00:00:00 [facility] (groups A, C, Y and Branc h W-135) conjugate vaccine (MCV4P) TDAP 2013-05-22 Completed [facility] 00:00:00 [facility] Influenza Virus 2013-05-22 Completed [facility] Vaccine (3+ yrs) 00:00:00 [facility] Meningococcal 2013-05-22 Completed [facility] Polysaccharide 00:00:00 [facility] (groups A, C, Y and Branc h W-135) conjugate vaccine (MCV4P) TDAP 2013-05-22 Completed [facility] 00:00:00 [facility] Influenza Virus 2013-05-22 Completed [facility] Vaccine (3+ yrs) 00:00:00 [facility] Meningococcal 2013-05-22 Completed [facility] Polysaccharide 00:00:00 [facility] (groups A, C, Y and Branc h W-135) conjugate vaccine (MCV4P) TDAP 2013-05-22 Completed [facility] 00:00:00 [facility] Influenza Virus 2013-05-22 Completed [facility] Vaccine (3+ yrs) 00:00:00 [facility] Meningococcal 2013-05-22 Completed [facility] Polysaccharide 00:00:00 [facility] (groups A, C, Y and Branc h W-135) conjugate vaccine (MCV4P) TDAP 2013-05-22 Completed [facility] 00:00:00 [facility] Influenza Virus 2013-05-22 Completed [facility] Vaccine (3+ yrs) 00:00:00 [facility] Meningococcal 2013-05-22 Completed [facility] Polysaccharide 00:00:00 [facility] (groups A, C, Y and Branc h W-135) conjugate vaccine (MCV4P) TDAP 2013-05-22 Completed [facility] 00:00:00 [facility] Influenza Virus 2013-05-22 Completed [facility] Vaccine (3+ yrs) 00:00:00 [facility] Meningococcal 2013-05-22 Completed [facility] Polysaccharide 00:00:00 [facility] (groups A, C, Y and Branc h W-135) conjugate vaccine (MCV4P) TDAP 2013-05-22 Completed [facility] 00:00:00 [facility] Influenza Virus 2013-05-22 Completed [facility] Vaccine (3+ yrs) 00:00:00 [facility] Meningococcal 2013-05-22 Completed [facility] Polysaccharide 00:00:00 [facility] (groups A, C, Y and Branc h W-135) conjugate vaccine (MCV4P) TDAP 2013-05-22 Completed [facility] 00:00:00 [facility] Influenza Virus 2013-05-22 Completed [facility] Vaccine (3+ yrs) 00:00:00 [facility] Meningococcal 2013-05-22 Completed [facility] Polysaccharide 00:00:00 [facility] (groups A, C, Y and Branc h W-135) conjugate vaccine (MCV4P) TDAP 2013-05-22 Completed [facility] 00:00:00 [facility] Influenza Virus 2013-05-22 Completed [facility] Vaccine (3+ yrs) 00:00:00 [facility] Meningococcal 2013-05-22 Completed [facility] Polysaccharide 00:00:00 [facility] (groups A, C, Y and Branc h W-135) conjugate vaccine (MCV4P) TDAP 2013-05-22 Completed [facility] 00:00:00 [facility] Influenza Virus 2013-05-22 Completed [facility] Vaccine (3+ yrs) 00:00:00 [facility] Meningococcal 2013-05-22 Completed [facility] Polysaccharide 00:00:00 [facility] (groups A, C, Y and Branc h W-135) conjugate vaccine (MCV4P) TDAP 2013-05-22 Completed [facility] 00:00:00 [facility] Influenza Virus 2013-05-22 Completed [facility] Vaccine (3+ yrs) 00:00:00 [facility] Meningococcal 2013-05-22 Completed [facility] Polysaccharide 00:00:00 [facility] (groups A, C, Y and Branc h W-135) conjugate vaccine (MCV4P) TDAP 2013-05-22 Completed [facility] 00:00:00 [facility] Influenza Virus 2013-05-22 Completed [facility] Vaccine (3+ yrs) 00:00:00 [facility] Meningococcal 2013-05-22 Completed [facility] Polysaccharide 00:00:00 [facility] (groups A, C, Y and Branc h W-135) conjugate vaccine (MCV4P) TDAP 2013-05-22 Completed [facility] 00:00:00 [facility] Influenza Virus 2013-05-22 Completed [facility] Vaccine (3+ yrs) 00:00:00 [facility] Meningococcal 2013-05-22 Completed [facility] Polysaccharide 00:00:00 [facility] (groups A, C, Y and Branc h W-135) conjugate vaccine (MCV4P) TDAP 2013-05-22 Completed [facility] 00:00:00 [facility] Influenza Virus 2013-05-22 Completed [facility] Vaccine (3+ yrs) 00:00:00 [facility] Meningococcal 2013-05-22 Completed [facility] Polysaccharide 00:00:00 [facility] (groups A, C, Y and Branc h W-135) conjugate vaccine (MCV4P) TDAP 2013-05-22 Completed [facility] 00:00:00 [facility] Influenza Virus 2013-05-22 Completed [facility] Vaccine (3+ yrs) 00:00:00 [facility] Meningococcal 2013-05-22 Completed [facility] Polysaccharide 00:00:00 [facility] (groups A, C, Y and Branc h W-135) conjugate vaccine (MCV4P) TDAP 2013-05-22 Completed [facility] 00:00:00 [facility] Influenza Virus 2013-05-22 Completed [facility] Vaccine (3+ yrs) 00:00:00 [facility] Meningococcal 2013-05-22 Completed [facility] Polysaccharide 00:00:00 [facility] (groups A, C, Y and Branc h W-135) conjugate vaccine (MCV4P) TDAP 2013-05-22 Completed [facility] 00:00:00 [facility] Influenza Virus 2013-05-22 Completed [facility] Vaccine (3+ yrs) 00:00:00 [facility] Meningococcal 2013-05-22 Completed [facility] Polysaccharide 00:00:00 [facility] (groups A, C, Y and Branc h W-135) conjugate vaccine (MCV4P) TDAP 2013-05-22 Completed [facility] 00:00:00 [facility] Influenza Virus 2013-05-22 Completed [facility] Vaccine (3+ yrs) 00:00:00 [facility] Meningococcal 2013-05-22 Completed [facility] Polysaccharide 00:00:00 [facility] (groups A, C, Y and Branc h W-135) conjugate vaccine (MCV4P) TDAP 2013-05-22 Completed [facility] 00:00:00 [facility] Influenza Virus 2013-05-22 Completed [facility] Vaccine (3+ yrs) 00:00:00 [facility] Meningococcal 2013-05-22 Completed [facility] Polysaccharide 00:00:00 [facility] (groups A, C, Y and Branc h W-135) conjugate vaccine (MCV4P) TDAP 2013-05-22 Completed [facility] 00:00:00 [facility] Influenza Virus 2013-05-22 Completed [facility] Vaccine (3+ yrs) 00:00:00 [facility] Meningococcal 2013-05-22 Completed [facility] Polysaccharide 00:00:00 [facility] (groups A, C, Y and Branc h W-135) conjugate vaccine (MCV4P) TDAP 2013-05-22 Completed [facility] 00:00:00 [facility] Influenza Virus 2013-05-22 Completed [facility] Vaccine (3+ yrs) 00:00:00 [facility] Meningococcal 2013-05-22 Completed [facility] Polysaccharide 00:00:00 [facility] (groups A, C, Y and Branc h W-135) conjugate vaccine (MCV4P) TDAP 2013-05-22 Completed [facility] 00:00:00 [facility] Influenza Virus 2013-05-22 Completed [facility] Vaccine (3+ yrs) 00:00:00 [facility] Meningococcal 2013-05-22 Completed [facility] Polysaccharide 00:00:00 [facility] (groups A, C, Y and Branc h W-135) conjugate vaccine (MCV4P) TDAP 2013-05-22 Completed [facility] 00:00:00 [facility] Influenza Virus 2013-05-22 Completed [facility] Vaccine (3+ yrs) 00:00:00 [facility] Meningococcal 2013-05-22 Completed [facility] Polysaccharide 00:00:00 [facility] (groups A, C, Y and Branc h W-135) conjugate vaccine (MCV4P) TDAP 2013-05-22 Completed [facility] 00:00:00 [facility] Influenza Virus 2013-05-22 Completed [facility] Vaccine (3+ yrs) 00:00:00 [facility] Meningococcal 2013-05-22 Completed [facility] Polysaccharide 00:00:00 [facility] (groups A, C, Y and Branc h W-135) conjugate vaccine (MCV4P) TDAP 2013-05-22 Completed [facility] 00:00:00 [facility] Influenza Virus 2013-05-22 Completed [facility] Vaccine (3+ yrs) 00:00:00 [facility] Meningococcal 2013-05-22 Completed [facility] Polysaccharide 00:00:00 [facility] (groups A, C, Y and Branc h W-135) conjugate vaccine (MCV4P) TDAP 2013-05-22 Completed [facility] 00:00:00 [facility] Influenza Virus 2013-05-22 Completed [facility] Vaccine (3+ yrs) 00:00:00 [facility] Meningococcal 2013-05-22 Completed [facility] Polysaccharide 00:00:00 [facility] (groups A, C, Y and Branc h W-135) conjugate vaccine (MCV4P) TDAP 2013-05-22 Completed [facility] 00:00:00 [facility] Influenza Virus 2013-05-22 Completed [facility] Vaccine (3+ yrs) 00:00:00 [facility] Meningococcal 2013-05-22 Completed [facility] Polysaccharide 00:00:00 [facility] (groups A, C, Y and Branc h W-135) conjugate vaccine (MCV4P) TDAP 2013-05-22 Completed [facility] 00:00:00 [facility] Influenza Virus 2013-05-22 Completed [facility] Vaccine (3+ yrs) 00:00:00 [facility] Meningococcal 2013-05-22 Completed [facility] Polysaccharide 00:00:00 [facility] (groups A, C, Y and Branc h W-135) conjugate vaccine (MCV4P) TDAP 2013-05-22 Completed [facility] 00:00:00 [facility] Influenza Virus 2013-05-22 Completed [facility] Vaccine (3+ yrs) 00:00:00 [facility] Meningococcal 2013-05-22 Completed [facility] Polysaccharide 00:00:00 [facility] (groups A, C, Y and Branc h W-135) conjugate vaccine (MCV4P) TDAP 2013-05-22 Completed [facility] 00:00:00 [facility] Influenza Virus 2013-05-22 Completed [facility] Vaccine (3+ yrs) 00:00:00 [facility] Meningococcal 2013-05-22 Completed [facility] Polysaccharide 00:00:00 [facility] (groups A, C, Y and Branc h W-135) conjugate vaccine (MCV4P) TDAP 2013-05-22 Completed [facility] 00:00:00 [facility] Influenza Virus 2013-05-22 Completed [facility] Vaccine (3+ yrs) 00:00:00 [facility] Meningococcal 2013-05-22 Completed [facility] Polysaccharide 00:00:00 [facility] (groups A, C, Y and Branc h W-135) conjugate vaccine (MCV4P) TDAP 2013-05-22 Completed [facility] 00:00:00 [facility] Influenza Virus 2013-05-22 Completed [facility] Vaccine (3+ yrs) 00:00:00 [facility] Meningococcal 2013-05-22 Completed [facility] Polysaccharide 00:00:00 [facility] (groups A, C, Y and Branc h W-135) conjugate vaccine (MCV4P) TDAP 2013-05-22 Completed [facility] 00:00:00 [facility] Influenza Virus 2013-05-22 Completed [facility] Vaccine (3+ yrs) 00:00:00 [facility] Meningococcal 2013-05-22 Completed [facility] Polysaccharide 00:00:00 [facility] (groups A, C, Y and Branc h W-135) conjugate vaccine (MCV4P) TDAP 2013-05-22 Completed [facility] 00:00:00 [facility] Influenza Virus 2013-05-22 Completed [facility] Vaccine (3+ yrs) 00:00:00 [facility] Meningococcal 2013-05-22 Completed [facility] Polysaccharide 00:00:00 [facility] (groups A, C, Y and Branc h W-135) conjugate vaccine (MCV4P) TDAP 2013-05-22 Completed [facility] 00:00:00 [facility] Influenza Virus 2013-05-22 Completed [facility] Vaccine (3+ yrs) 00:00:00 [facility] Meningococcal 2013-05-22 Completed [facility] Polysaccharide 00:00:00 [facility] (groups A, C, Y and Branc h W-135) conjugate vaccine (MCV4P) TDAP 2013-05-22 Completed [facility] 00:00:00 [facility] Influenza Virus 2013-05-22 Completed [facility] Vaccine (3+ yrs) 00:00:00 [facility] Meningococcal 2013-05-22 Completed [facility] Polysaccharide 00:00:00 [facility] (groups A, C, Y and Branc h W-135) conjugate vaccine (MCV4P) TDAP 2013-05-22 Completed [facility] 00:00:00 [facility] Influenza Virus 2013-05-22 Completed [facility] Vaccine (3+ yrs) 00:00:00 [facility] Meningococcal 2013-05-22 Completed [facility] Polysaccharide 00:00:00 [facility] (groups A, C, Y and Branc h W-135) conjugate vaccine (MCV4P) TDAP 2013-05-22 Completed [facility] 00:00:00 [facility] Influenza Virus 2013-05-22 Completed [facility] Vaccine (3+ yrs) 00:00:00 [facility] Meningococcal 2013-05-22 Completed [facility] Polysaccharide 00:00:00 [facility] (groups A, C, Y and Branc h W-135) conjugate vaccine (MCV4P) TDAP 2013-05-22 Completed [facility] 00:00:00 [facility] Influenza Virus 2013-05-22 Completed [facility] Vaccine (3+ yrs) 00:00:00 [facility] Meningococcal 2013-05-22 Completed [facility] Polysaccharide 00:00:00 [facility] (groups A, C, Y and Branc h W-135) conjugate vaccine (MCV4P) TDAP 2013-05-22 Completed [facility] 00:00:00 [facility] Influenza Virus 2013-05-22 Completed [facility] Vaccine (3+ yrs) 00:00:00 [facility] Meningococcal 2013-05-22 Completed [facility] Polysaccharide 00:00:00 [facility] (groups A, C, Y and Branc h W-135) conjugate vaccine (MCV4P) TDAP 2013-05-22 Completed [facility] 00:00:00 [facility] Influenza Virus 2013-05-22 Completed [facility] Vaccine (3+ yrs) 00:00:00 [facility] Meningococcal 2013-05-22 Completed [facility] Polysaccharide 00:00:00 [facility] (groups A, C, Y and Branc h W-135) conjugate vaccine (MCV4P) TDAP 2013-05-22 Completed [facility] 00:00:00 [facility] Influenza Virus 2013-05-22 Completed [facility] Vaccine (3+ yrs) 00:00:00 [facility] Meningococcal 2013-05-22 Completed [facility] Polysaccharide 00:00:00 [facility] (groups A, C, Y and Branc h W-135) conjugate vaccine (MCV4P) TDAP 2013-05-22 Completed [facility] 00:00:00 [facility] Influenza Virus 2013-05-22 Completed [facility] Vaccine (3+ yrs) 00:00:00 [facility] Meningococcal 2013-05-22 Completed [facility] Polysaccharide 00:00:00 [facility] (groups A, C, Y and Branc h W-135) conjugate vaccine (MCV4P) TDAP 2013-05-22 Completed [facility] 00:00:00 [facility] Influenza Virus 2013-05-22 Completed [facility] Vaccine (3+ yrs) 00:00:00 [facility] Meningococcal 2013-05-22 Completed [facility] Polysaccharide 00:00:00 [facility] (groups A, C, Y and Branc h W-135) conjugate vaccine (MCV4P) TDAP 2013-05-22 Completed [facility] 00:00:00 [facility] Influenza Virus 2013-05-22 Completed [facility] Vaccine (3+ yrs) 00:00:00 [facility] Meningococcal 2013-05-22 Completed [facility] Polysaccharide 00:00:00 [facility] (groups A, C, Y and Branc h W-135) conjugate vaccine (MCV4P) TDAP 2013-05-22 Completed [facility] 00:00:00 [facility] Influenza Virus 2013-05-22 Completed [facility] Vaccine (3+ yrs) 00:00:00 [facility] Meningococcal 2013-05-22 Completed [facility] Polysaccharide 00:00:00 [facility] (groups A, C, Y and Branc h W-135) conjugate vaccine (MCV4P) TDAP 2013-05-22 Completed [facility] 00:00:00 [facility] Influenza Virus 2013-05-22 Completed [facility] Vaccine (3+ yrs) 00:00:00 [facility] Meningococcal 2013-05-22 Completed [facility] Polysaccharide 00:00:00 [facility] (groups A, C, Y and Branc h W-135) conjugate vaccine (MCV4P) TDAP 2013-05-22 Completed [facility] 00:00:00 [facility] Influenza Virus 2013-05-22 Completed [facility] Vaccine (3+ yrs) 00:00:00 [facility] Meningococcal 2013-05-22 Completed [facility] Polysaccharide 00:00:00 [facility] (groups A, C, Y and Branc h W-135) conjugate vaccine (MCV4P) TDAP 2013-05-22 Completed [facility] 00:00:00 [facility] Influenza Virus 2013-05-22 Completed [facility] Vaccine (3+ yrs) 00:00:00 [facility] Meningococcal 2013-05-22 Completed [facility] Polysaccharide 00:00:00 [facility] (groups A, C, Y and Branc h W-135) conjugate vaccine (MCV4P) TDAP 2013-05-22 Completed [facility] 00:00:00 [facility] Influenza Virus 2013-05-22 Completed [facility] Vaccine (3+ yrs) 00:00:00 [facility] Meningococcal 2013-05-22 Completed [facility] Polysaccharide 00:00:00 [facility] (groups A, C, Y and Branc h W-135) conjugate vaccine (MCV4P) TDAP 2013-05-22 Completed [facility] 00:00:00 [facility] Influenza Virus 2013-05-22 Completed [facility] Vaccine (3+ yrs) 00:00:00 [facility] Meningococcal 2013-05-22 Completed [facility] Polysaccharide 00:00:00 [facility] (groups A, C, Y and Branc h W-135) conjugate vaccine (MCV4P) TDAP 2013-05-22 Completed [facility] 00:00:00 [facility] Influenza Virus 2013-05-22 Completed [facility] Vaccine (3+ yrs) 00:00:00 [facility] Meningococcal 2013-05-22 Completed [facility] Polysaccharide 00:00:00 [facility] (groups A, C, Y and Branc h W-135) conjugate vaccine (MCV4P) TDAP 2013-05-22 Completed [facility] 00:00:00 [facility] Influenza Virus 2013-05-22 Completed [facility] Vaccine (3+ yrs) 00:00:00 [facility] Meningococcal 2013-05-22 Completed [facility] Polysaccharide 00:00:00 [facility] (groups A, C, Y and Branc h W-135) conjugate vaccine (MCV4P) TDAP 2013-05-22 Completed [facility] 00:00:00 [facility] Influenza Virus 2013-05-22 Completed [facility] Vaccine (3+ yrs) 00:00:00 [facility] Meningococcal 2013-05-22 Completed [facility] Polysaccharide 00:00:00 [facility] (groups A, C, Y and Branc h W-135) conjugate vaccine (MCV4P) TDAP 2013-05-22 Completed [facility] 00:00:00 [facility] Influenza Virus 2013-05-22 Completed [facility] Vaccine (3+ yrs) 00:00:00 [facility] Meningococcal 2013-05-22 Completed [facility] Polysaccharide 00:00:00 [facility] (groups A, C, Y and Branc h W-135) conjugate vaccine (MCV4P) TDAP 2013-05-22 Completed [facility] 00:00:00 [facility] Influenza Virus 2013-05-22 Completed [facility] Vaccine (3+ yrs) 00:00:00 [facility] Meningococcal 2013-05-22 Completed [facility] Polysaccharide 00:00:00 [facility] (groups A, C, Y and Branc h W-135) conjugate vaccine (MCV4P) TDAP 2013-05-22 Completed [facility] 00:00:00 [facility] Influenza Virus 2013-05-22 Completed [facility] Vaccine (3+ yrs) 00:00:00 [facility] Meningococcal 2013-05-22 Completed [facility] Polysaccharide 00:00:00 [facility] (groups A, C, Y and Branc h W-135) conjugate vaccine (MCV4P) TDAP 2013-05-22 Completed [facility] 00:00:00 [facility] Influenza Virus 2013-05-22 Completed [facility] Vaccine (3+ yrs) 00:00:00 [facility] Meningococcal 2013-05-22 Completed [facility] Polysaccharide 00:00:00 [facility] (groups A, C, Y and Branc h W-135) conjugate vaccine (MCV4P) TDAP 2013-05-22 Completed [facility] 00:00:00 [facility] Influenza Virus 2013-05-22 Completed [facility] Vaccine (3+ yrs) 00:00:00 [facility] Meningococcal 2013-05-22 Completed [facility] Polysaccharide 00:00:00 [facility] (groups A, C, Y and Branc h W-135) conjugate vaccine (MCV4P) TDAP 2013-05-22 Completed [facility] 00:00:00 [facility] Influenza Virus 2013-05-22 Completed [facility] Vaccine (3+ yrs) 00:00:00 [facility] Meningococcal 2013-05-22 Completed [facility] Polysaccharide 00:00:00 [facility] (groups A, C, Y and Branc h W-135) conjugate vaccine (MCV4P) TDAP 2013-05-22 Completed [facility] 00:00:00 [facility] Influenza Virus 2013-05-22 Completed [facility] Vaccine (3+ yrs) 00:00:00 [facility] Meningococcal 2013-05-22 Completed [facility] Polysaccharide 00:00:00 [facility] (groups A, C, Y and Branc h W-135) conjugate vaccine (MCV4P) TDAP 2013-05-22 Completed [facility] 00:00:00 [facility] Influenza Virus 2013-05-22 Completed [facility] Vaccine (3+ yrs) 00:00:00 [facility] Meningococcal 2013-05-22 Completed [facility] Polysaccharide 00:00:00 [facility] (groups A, C, Y and Branc h W-135) conjugate vaccine (MCV4P) TDAP 2013-05-22 Completed [facility] 00:00:00 [facility] Influenza Virus 2013-05-22 Completed [facility] Vaccine (3+ yrs) 00:00:00 [facility] Meningococcal 2013-05-22 Completed [facility] Polysaccharide 00:00:00 [facility] (groups A, C, Y and Branc h W-135) conjugate vaccine (MCV4P) TDAP 2013-05-22 Completed [facility] 00:00:00 [facility] Influenza Virus 2013-05-22 Completed [facility] Vaccine (3+ yrs) 00:00:00 [facility] Meningococcal 2013-05-22 Completed [facility] Polysaccharide 00:00:00 [facility] (groups A, C, Y and Branc h W-135) conjugate vaccine (MCV4P) TDAP 2013-05-22 Completed [facility] 00:00:00 [facility] Influenza Virus 2013-05-22 Completed [facility] Vaccine (3+ yrs) 00:00:00 [facility] Meningococcal 2013-05-22 Completed [facility] Polysaccharide 00:00:00 [facility] (groups A, C, Y and Branc h W-135) conjugate vaccine (MCV4P) TDAP 2013-05-22 Completed [facility] 00:00:00 [facility] Influenza Virus 2013-05-22 Completed [facility] Vaccine (3+ yrs) 00:[facility]00 [facility] [facility] Meningococcal 2013-05-22 Completed [facility] Polysaccharide 00:00:00 [facility] (groups A, C, Y and Branc h W-135) conjugate vaccine (MCV4P) TDAP 2013-05-22 Completed [facility] 00:00:00 [facility] Influenza Virus 2013-05-22 Completed [facility] Vaccine (3+ yrs) 00:00:00 [facility] Meningococcal 2013-05-22 Completed [facility] Polysaccharide 00:00:00 [facility] (groups A, C, Y and Branc h W-135) conjugate vaccine (MCV4P) TDAP 2013-05-22 Completed [facility] 00:00:00 [facility] Influenza Virus 2012-06-13 Completed [facility] Vaccine 00:00:00 [facility] Influenza Virus 2012-06-13 Completed [facility] Vaccine 00:00:00 [facility] Influenza Virus 2012-06-13 Completed [facility] Vaccine 00:00:00 [facility] Influenza Virus 2012-06-13 Completed [facility] Vaccine 00:00:00 [facility] Influenza Virus 2012-06-13 Completed [facility] Vaccine 00:00:00 [facility] Influenza Virus 2012-06-13 Completed [facility] Vaccine 00:00:00 [facility] Influenza Virus 2012-06-13 Completed [facility] Vaccine 00:00:00 [facility] Influenza Virus 2012-06-13 Completed [facility] Vaccine 00:00:00 [facility] Influenza Virus 2012-06-13 Completed [facility] Vaccine 00:00:00 [facility] Influenza Virus 2012-06-13 Completed [facility] Vaccine 00:00:00 [facility] Influenza Virus 2012-06-13 Completed [facility] Vaccine 00:00:00 [facility] Influenza Virus 2012-06-13 Completed [facility] Vaccine 00:00:00 [facility] Influenza Virus 2012-06-13 Completed [facility] Vaccine 00:00:00 [facility] Influenza Virus 2012-06-13 Completed [facility] Vaccine 00:00:00 [facility] Influenza Virus 2012-06-13 Completed [facility] Vaccine 00:00:00 [facility] Influenza Virus 2012-06-13 Completed [facility] Vaccine 00:00:00 [facility] Influenza Virus 2012-06-13 Completed [facility] Vaccine 00:00:00 [facility] Influenza Virus 2012-06-13 Completed [facility] Vaccine 00:00:00 [facility] Influenza Virus 2012-06-13 Completed [facility] Vaccine 00:00:00 [facility] Influenza Virus 2012-06-13 Completed [facility] Vaccine 00:00:00 [facility] Influenza Virus 2012-06-13 Completed [facility] Vaccine 00:00:00 [facility] Influenza Virus 2012-06-13 Completed [facility] Vaccine 00:00:00 [facility] Influenza Virus 2012-06-13 Completed [facility] Vaccine 00:00:00 [facility] Influenza Virus 2012-06-13 Completed [facility] Vaccine 00:00:00 [facility] Influenza Virus 2012-06-13 Completed [facility] Vaccine 00:00:00 [facility] Influenza Virus 2012-06-13 Completed [facility] Vaccine 00:00:00 [facility] Influenza Virus 2012-06-13 Completed [facility] Vaccine 00:00:00 [facility] Influenza Virus 2012-06-13 Completed [facility] Vaccine 00:00:00 [facility] Influenza Virus 2012-06-13 Completed [facility] Vaccine 00:00:00 [facility] Influenza Virus 2012-06-13 Completed [facility] Vaccine 00:00:00 [facility] Influenza Virus 2012-06-13 Completed [facility] Vaccine 00:00:00 [facility] Influenza Virus 2012-06-13 Completed [facility] Vaccine 00:00:00 [facility] Influenza Virus 2012-06-13 Completed [facility] Vaccine 00:00:00 [facility] Influenza Virus 2012-06-13 Completed [facility] Vaccine 00:00:00 [facility] Influenza Virus 2012-06-13 Completed [facility] Vaccine 00:00:00 [facility] Influenza Virus 2012-06-13 Completed [facility] Vaccine 00:00:00 [facility] Influenza Virus 2012-06-13 Completed [facility] Vaccine 00:00:00 [facility] Influenza Virus 2012-06-13 Completed [facility] Vaccine 00:00:00 [facility] Influenza Virus 2012-06-13 Completed [facility] of Vaccine 00:00:00 [facility] Influenza Virus 2012-06-13 Completed [facility] Vaccine 00:00:00 [facility] Influenza Virus 2012-06-13 Completed [facility] Vaccine 00:00:00 [facility] Influenza Virus 2012-06-13 Completed [facility] Vaccine 00:00:00 [facility] Influenza Virus 2012-06-13 Completed [facility] of Vaccine 00:00:00 [facility] Influenza Virus 2012-06-13 Completed [facility] Vaccine 00:00:00 [facility] Influenza Virus 2012-06-13 Completed [facility] Vaccine 00:00:00 [facility] Influenza Virus 2012-06-13 Completed [facility] Vaccine 00:00:00 [facility] Influenza Virus 2012-06-13 Completed [facility] Vaccine 00:00:00 [facility] Influenza Virus 2012-06-13 Completed [facility] Vaccine 00:00:00 [facility] Influenza Virus 2012-06-13 Completed [facility] Vaccine 00:00:00 [facility] Influenza Virus 2012-06-13 Completed [facility] of Vaccine 00:00:00 [facility] Influenza Virus 2012-06-13 Completed [facility] Vaccine 00:00:00 [facility] Influenza Virus 2012-06-13 Completed [facility] Vaccine 00:00:00 [facility] Influenza Virus 2012-06-13 Completed [facility] of Vaccine 00:00:00 [facility] Influenza Virus 2012-06-13 Completed [facility] Vaccine 00:00:00 [facility] Influenza Virus 2012-06-13 Completed [facility] Vaccine 00:00:00 [facility] Influenza Virus 2012-06-13 Completed [facility] Vaccine 00:00:00 [facility] Influenza Virus 2012-06-13 Completed [facility] Vaccine 00:00:00 [facility] Influenza Virus 2012-06-13 Completed [facility] of Vaccine 00:00:00 [facility] Influenza Virus 2012-06-13 Completed [facility] Vaccine 00:00:00 [facility] Influenza Virus 2012-06-13 Completed [facility] Vaccine 00:00:00 [facility] Influenza Virus 2012-06-13 Completed [facility] Vaccine 00:00:00 [facility] Influenza Virus 2012-06-13 Completed [facility] Vaccine 00:00:00 [facility] Influenza Virus 2012-06-13 Completed [facility] Vaccine 00:00:00 [facility] Influenza Virus 2012-06-13 Completed [facility] Vaccine 00:00:00 [facility] Influenza Virus 2012-06-13 Completed [facility] Vaccine 00:00:00 [facility] Influenza Virus 2012-06-13 Completed [facility] Vaccine 00:00:00 [facility] Influenza Virus 2012-06-13 Completed [facility] of Vaccine 00:00:00 [facility] Influenza Virus 2012-06-13 Completed [facility] of Vaccine 00:00:00 [facility] Influenza Virus 2012-06-13 Completed [facility] of Vaccine 00:00:00 [facility] Influenza Virus 2012-06-13 Completed [facility] Vaccine 00:00:00 [facility] Influenza Virus 2012-06-13 Completed [facility] Vaccine 00:00:00 [facility] Influenza Virus 2012-06-13 Completed [facility] Vaccine 00:00:00 [facility] Influenza Virus 2012-06-13 Completed [facility] of Vaccine 00:00:00 [facility] Influenza Virus 2012-06-13 Completed [facility] of Vaccine 00:00:00 [facility] Influenza Virus 2012-06-13 Completed [facility] Vaccine 00:00:00 [facility] Influenza Virus 2012-06-13 Completed [facility] of Vaccine 00:00:00 [facility] Influenza Virus 2012-06-13 Completed [facility] of Vaccine 00:00:00 [facility] Influenza Virus 2012-06-13 Completed [facility] Vaccine 00:00:00 [facility] Influenza Virus 2012-06-13 Completed [facility] of Vaccine 00:00:00 [facility] Influenza Virus 2012-06-13 Completed [facility] Vaccine 00:00:00 [facility] Influenza Virus 2012-06-13 Completed [facility] of Vaccine 00:00:00 [facility] Influenza Virus 2012-06-13 Completed [facility] Vaccine 00:00:00 [facility] Influenza Virus 2012-06-13 Completed [facility] of Vaccine 00:00:00 [facility] Influenza Virus 2012-06-13 Completed [facility] of Vaccine 00:00:00 [facility] Influenza Virus 2012-06-13 Completed [facility] Vaccine 00:00:00 [facility] Influenza Virus 2012-06-13 Completed [facility] Vaccine 00:00:00 [facility] Influenza Virus 2012-06-13 Completed [facility] of Vaccine 00:00:00 [facility] Influenza Virus 2012-06-13 Completed [facility] of Vaccine 00:00:00 [facility] Influenza Virus 2012-06-13 Completed [facility] of Vaccine 00:00:00 [facility] Influenza Virus 2012-06-13 Completed [facility] Vaccine 00:00:00 [facility] Influenza Virus 2012-06-13 Completed [facility] of Vaccine 00:00:00 [facility] Influenza Virus 2012-06-13 Completed [facility] of Vaccine 00:00:00 [facility] Influenza Virus 2012-06-13 Completed [facility] of Vaccine 00:00:00 [facility] Influenza Virus 2012-06-13 Completed [facility] of Vaccine 00:00:00 [facility] Influenza Virus 2012-06-13 Completed [facility] of Vaccine 00:00:00 [facility] Influenza Virus 2012-06-13 Completed [facility] Vaccine 00:00:00 [facility] Influenza Virus 2012-06-13 Completed [facility] Vaccine 00:00:00 [facility] Influenza Virus 2012-06-13 Completed [facility] of Vaccine 00:00:00 [facility] Influenza Virus 2012-06-13 Completed [facility] of Vaccine 00:00:00 [facility] Influenza Virus 2012-06-13 Completed [facility] of Vaccine 00:00:00 [facility] Influenza Virus 2012-06-13 Completed [facility] Vaccine 00:00:00 [facility] Influenza Virus 2012-06-13 Completed [facility] of Vaccine 00:00:00 [facility] Influenza Virus 2012-06-13 Completed [facility] of Vaccine 00:00:00 [facility] Influenza Virus 2012-06-13 Completed [facility] of Vaccine 00:00:00 [facility] Influenza Virus 2012-06-13 Completed [facility] of Vaccine 00:00:00 [facility] Influenza Virus 2011-05-18 Completed [facility] Vaccine 00:00:00 [facility] Influenza Virus 2011-05-18 Completed [facility] Vaccine 00:00:00 [facility] Influenza Virus 2011-05-18 Completed [facility] Vaccine 00:00:00 [facility] Influenza Virus 2011-05-18 Completed [facility] of Vaccine 00:00:00 [facility] Influenza Virus 2011-05-18 Completed [facility] Vaccine 00:00:00 [facility] Influenza Virus 2011-05-18 Completed [facility] Vaccine 00:00:00 [facility] Influenza Virus 2011-05-18 Completed [facility] of Vaccine 00:00:00 [facility] Influenza Virus 2011-05-18 Completed [facility] Vaccine 00:00:00 [facility] Influenza Virus 2011-05-18 Completed [facility] Vaccine 00:00:00 [facility] Influenza Virus 2011-05-18 Completed [facility] of Vaccine 00:00:00 [facility] Influenza Virus 2011-05-18 Completed [facility] Vaccine 00:00:00 [facility] Influenza Virus 2011-05-18 Completed [facility] Vaccine 00:00:00 [facility] Influenza Virus 2011-05-18 Completed [facility] Vaccine 00:00:00 [facility] Influenza Virus 2011-05-18 Completed [facility] Vaccine 00:00:00 [facility] Influenza Virus 2011-05-18 Completed [facility] Vaccine 00:00:00 [facility] Influenza Virus 2011-05-18 Completed [facility] Vaccine 00:00:00 [facility] Influenza Virus 2011-05-18 Completed [facility] of Vaccine 00:00:00 [facility] Influenza Virus 2011-05-18 Completed [facility] Vaccine 00:00:00 [facility] Influenza Virus 2011-05-18 Completed [facility] Vaccine 00:00:00 [facility] Influenza Virus 2011-05-18 Completed [facility] Vaccine 00:00:00 [facility] Influenza Virus 2011-05-18 Completed [facility] Vaccine 00:00:00 [facility] Influenza Virus 2011-05-18 Completed [facility] Vaccine 00:00:00 [facility] Influenza Virus 2011-05-18 Completed [facility] Vaccine 00:00:00 [facility] Influenza Virus 2011-05-18 Completed [facility] Vaccine 00:00:00 [facility] Influenza Virus 2011-05-18 Completed [facility] Vaccine 00:00:00 [facility] Influenza Virus 2011-05-18 Completed [facility] Vaccine 00:00:00 [facility] Influenza Virus 2011-05-18 Completed [facility] Vaccine 00:00:00 [facility] Influenza Virus 2011-05-18 Completed [facility] Vaccine 00:00:00 [facility] Influenza Virus 2011-05-18 Completed [facility] Vaccine 00:00:00 [facility] Influenza Virus 2011-05-18 Completed [facility] Vaccine 00:00:00 [facility] Influenza Virus 2011-05-18 Completed [facility] Vaccine 00:00:00 [facility] Influenza Virus 2011-05-18 Completed [facility] Vaccine 00:00:00 [facility] Influenza Virus 2011-05-18 Completed [facility] Vaccine 00:00:00 [facility] Influenza Virus 2011-05-18 Completed [facility] Vaccine 00:00:00 [facility] Influenza Virus 2011-05-18 Completed [facility] Vaccine 00:00:00 [facility] Influenza Virus 2011-05-18 Completed [facility] Vaccine 00:00:00 [facility] Influenza Virus 2011-05-18 Completed [facility] Vaccine 00:00:00 [facility] Influenza Virus 2011-05-18 Completed [facility] Vaccine 00:00:00 [facility] Influenza Virus 2011-05-18 Completed [facility] Vaccine 00:00:00 [facility] Influenza Virus 2011-05-18 Completed [facility] Vaccine 00:00:00 [facility] Influenza Virus 2011-05-18 Completed [facility] Vaccine 00:00:00 [facility] Influenza Virus 2011-05-18 Completed [facility] Vaccine 00:00:00 [facility] Influenza Virus 2011-05-18 Completed [facility] Vaccine 00:00:00 [facility] Influenza Virus 2011-05-18 Completed [facility] Vaccine 00:00:00 [facility] Influenza Virus 2011-05-18 Completed [facility] Vaccine 00:00:00 [facility] Influenza Virus 2011-05-18 Completed [facility] Vaccine 00:00:00 [facility] Influenza Virus 2011-05-18 Completed [facility] Vaccine 00:00:00 [facility] Influenza Virus 2011-05-18 Completed [facility] Vaccine 00:00:00 [facility] Influenza Virus 2011-05-18 Completed [facility] Vaccine 00:00:00 [facility] Influenza Virus 2011-05-18 Completed [facility] Vaccine 00:00:00 [facility] Influenza Virus 2011-05-18 Completed [facility] Vaccine 00:00:00 [facility] Influenza Virus 2011-05-18 Completed [facility] Vaccine 00:00:00 [facility] Influenza Virus 2011-05-18 Completed [facility] Vaccine 00:00:00 [facility] Influenza Virus 2011-05-18 Completed [facility] Vaccine 00:00:00 [facility] Influenza Virus 2011-05-18 Completed [facility] Vaccine 00:00:00 [facility] Influenza Virus 2011-05-18 Completed [facility] Vaccine 00:00:00 [facility] Influenza Virus 2011-05-18 Completed [facility] Vaccine 00:00:00 [facility] Influenza Virus 2011-05-18 Completed [facility] Vaccine 00:00:00 [facility] Influenza Virus 2011-05-18 Completed [facility] Vaccine 00:00:00 [facility] Influenza Virus 2011-05-18 Completed [facility] Vaccine 00:00:00 [facility] Influenza Virus 2011-05-18 Completed [facility] Vaccine 00:00:00 [facility] Influenza Virus 2011-05-18 Completed [facility] Vaccine 00:00:00 [facility] Influenza Virus 2011-05-18 Completed [facility] Vaccine 00:00:00 [facility] Influenza Virus 2011-05-18 Completed [facility] Vaccine 00:00:00 [facility] Influenza Virus 2011-05-18 Completed [facility] Vaccine 00:00:00 [facility] Influenza Virus 2011-05-18 Completed [facility] Vaccine 00:00:00 [facility] Influenza Virus 2011-05-18 Completed [facility] Vaccine 00:00:00 [facility] Influenza Virus 2011-05-18 Completed [facility] Vaccine 00:00:00 [facility] Influenza Virus 2011-05-18 Completed [facility] Vaccine 00:00:00 [facility] Influenza Virus 2011-05-18 Completed [facility] Vaccine 00:00:00 [facility] Influenza Virus 2011-05-18 Completed [facility] Vaccine 00:00:00 [facility] Influenza Virus 2011-05-18 Completed [facility] Vaccine 00:00:00 [facility] Influenza Virus 2011-05-18 Completed [facility] Vaccine 00:00:00 [facility] Influenza Virus 2011-05-18 Completed [facility] Vaccine 00:00:00 [facility] Influenza Virus 2011-05-18 Completed [facility] Vaccine 00:00:00 [facility] Influenza Virus 2011-05-18 Completed [facility] Vaccine 00:00:00 [facility] Influenza Virus 2011-05-18 Completed [facility] Vaccine 00:00:00 [facility] Influenza Virus 2011-05-18 Completed [facility] Vaccine 00:00:00 [facility] Influenza Virus 2011-05-18 Completed [facility] Vaccine 00:00:00 [facility] Influenza Virus 2011-05-18 Completed [facility] Vaccine 00:00:00 [facility] Influenza Virus 2011-05-18 Completed [facility] Vaccine 00:00:00 [facility] Influenza Virus 2011-05-18 Completed [facility] Vaccine 00:00:00 [facility] Influenza Virus 2011-05-18 Completed [facility] Vaccine 00:00:00 [facility] Influenza Virus 2011-05-18 Completed [facility] Vaccine 00:00:00 [facility] Influenza Virus 2011-05-18 Completed [facility] Vaccine 00:00:00 [facility] Influenza Virus 2011-05-18 Completed [facility] Vaccine 00:00:00 [facility] Influenza Virus 2011-05-18 Completed [facility] Vaccine 00:00:00 [facility] Influenza Virus 2011-05-18 Completed [facility] Vaccine 00:00:00 [facility] Influenza Virus 2011-05-18 Completed [facility] Vaccine 00:00:00 [facility] Influenza Virus 2011-05-18 Completed [facility] Vaccine 00:00:00 [facility] Influenza Virus 2011-05-18 Completed [facility] Vaccine 00:00:00 [facility] Influenza Virus 2011-05-18 Completed [facility] Vaccine 00:00:00 [facility] Influenza Virus 2011-05-18 Completed [facility] Vaccine 00:00:00 [facility] Influenza Virus 2011-05-18 Completed [facility] Vaccine 00:00:00 [facility] Influenza Virus 2011-05-18 Completed [facility] Vaccine 00:00:00 [facility] Influenza Virus 2011-05-18 Completed [facility] Vaccine 00:00:00 [facility] Influenza Virus 2011-05-18 Completed [facility] Vaccine 00:00:00 [facility] Influenza Virus 2011-05-18 Completed [facility] Vaccine 00:00:00 [facility] Influenza Virus 2011-05-18 Completed [facility] Vaccine 00:00:00 [facility] Influenza Virus 2011-05-18 Completed [facility] Vaccine 00:00:00 [facility] Influenza Virus 2011-05-18 Completed [facility] Vaccine 00:00:00 [facility] Influenza Virus 2011-05-18 Completed [facility] Vaccine 00:00:00 [facility] Influenza Virus 2011-05-18 Completed [facility] Vaccine 00:00:00 [facility] Influenza Virus 2011-05-18 Completed [facility] Vaccine 00:00:00 [facility] Influenza Virus 2011-05-18 Completed [facility] Vaccine 00:00:00 [facility] Influenza Virus 2010-05-26 Completed [facility] Vaccine 00:00:00 [facility] Influenza Virus 2010-05-26 Completed [facility] Vaccine 00:00:00 [facility] Influenza Virus 2010-05-26 Completed [facility] Vaccine 00:00:00 [facility] Influenza Virus 2010-05-26 Completed [facility] Vaccine 00:00:00 [facility] Influenza Virus 2010-05-26 Completed [facility] Vaccine 00:00:00 [facility] Influenza Virus 2010-05-26 Completed [facility] Vaccine 00:00:00 [facility] Influenza Virus 2010-05-26 Completed [facility] Vaccine 00:00:00 [facility] Influenza Virus 2010-05-26 Completed [facility] Vaccine 00:00:00 [facility] Influenza Virus 2010-05-26 Completed [facility] Vaccine 00:00:00 [facility] Influenza Virus 2010-05-26 Completed [facility] Vaccine 00:00:00 [facility] Influenza Virus 2010-05-26 Completed [facility] Vaccine 00:00:00 [facility] Influenza Virus 2010-05-26 Completed [facility] Vaccine 00:00:00 [facility] Influenza Virus 2010-05-26 Completed [facility] Vaccine 00:00:00 [facility] Influenza Virus 2010-05-26 Completed [facility] Vaccine 00:00:00 [facility] Influenza Virus 2010-05-26 Completed [facility] Vaccine 00:00:00 [facility] Influenza Virus 2010-05-26 Completed [facility] Vaccine 00:00:00 [facility] Influenza Virus 2010-05-26 Completed [facility] Vaccine 00:00:00 [facility] Influenza Virus 2010-05-26 Completed [facility] Vaccine 00:00:00 [facility] Influenza Virus 2010-05-26 Completed [facility] Vaccine 00:00:00 [facility] Influenza Virus 2010-05-26 Completed [facility] Vaccine 00:00:00 [facility] Influenza Virus 2010-05-26 Completed [facility] Vaccine 00:00:00 [facility] Influenza Virus 2010-05-26 Completed [facility] Vaccine 00:00:00 [facility] Influenza Virus 2010-05-26 Completed [facility] Vaccine 00:00:00 [facility] Influenza Virus 2010-05-26 Completed [facility] Vaccine 00:00:00 [facility] Influenza Virus 2010-05-26 Completed [facility] Vaccine 00:00:00 [facility] Influenza Virus 2010-05-26 Completed [facility] Vaccine 00:00:00 [facility] Influenza Virus 2010-05-26 Completed [facility] Vaccine 00:00:00 [facility] Influenza Virus 2010-05-26 Completed [facility] Vaccine 00:00:00 [facility] Influenza Virus 2010-05-26 Completed [facility] Vaccine 00:00:00 [facility] Influenza Virus 2010-05-26 Completed [facility] Vaccine 00:00:00 [facility] Influenza Virus 2010-05-26 Completed [facility] Vaccine 00:00:00 [facility] Influenza Virus 2010-05-26 Completed [facility] Vaccine 00:00:00 [facility] Influenza Virus 2010-05-26 Completed [facility] Vaccine 00:00:00 [facility] Influenza Virus 2010-05-26 Completed [facility] Vaccine 00:00:00 [facility] Influenza Virus 2010-05-26 Completed [facility] Vaccine 00:00:00 [facility] Influenza Virus 2010-05-26 Completed [facility] Vaccine 00:00:00 [facility] Influenza Virus 2010-05-26 Completed [facility] Vaccine 00:00:00 [facility] Influenza Virus 2010-05-26 Completed [facility]00 [facility] Influenza Virus 2010-05-26 Completed [facility] 00:00:00 [facility] Influenza Virus 2010-05-26 Completed [facility] 00[facility]00:00 [facility] Influenza Virus 2010-05-26 Completed [facility] 00:00:00 [facility] Influenza Virus 2010-05-26 Completed [facility] 00:00:00 [facility] Influenza Virus 2010-05-26 Completed [facility] 00:00:00 [facility] Influenza Virus 2010-05-26 Completed [facility] 00:00:00 [facility] Influenza Virus 2010-05-26 Completed [facility] 00[facility]00:00 [facility] Influenza Virus 2010-05-26 Completed [facility]ine 00:00:00 [facility] Influenza Virus 2010-05-26 Completed [facility] 00:00:00 [facility] Influenza Virus 2010-05-26 Completed [facility] 00:00:00 [facility] Influenza Virus 2010-05-26 Completed [facility]ine 00:00:00 [facility] Influenza Virus 2010-05-26 Completed [facility] 00:00:00 [facility] Influenza Virus 2010-05-26 Completed [facility] 00:00:00 [facility] Influenza Virus 2010-05-26 Completed [facility] 00:00:00 [facility] Influenza Virus 2010-05-26 Completed [facility] 00:00:00 [facility] Influenza Virus 2010-05-26 Completed [facility] 00:00:00 [facility] Influenza Virus 2010-05-26 Completed [facility]ine 00:00:00 [facility] Influenza Virus 2010-05-26 Completed [facility]ine 00:00:00 [facility] Influenza Virus 2010-05-26 Completed [facility]ine 00:00:00 [facility] Influenza Virus 2010-05-26 Completed [facility] 00:00:00 [facility] Influenza Virus 2010-05-26 Completed [facility]ine 00:00:00 [facility] Influenza Virus 2010-05-26 Completed [facility] 00:00:00 [facility] Influenza Virus 2010-05-26 Completed [facility] 00:00:00 [facility] Influenza Virus 2010-05-26 Completed [facility] 00:00:00 [facility] Influenza Virus 2010-05-26 Completed [facility]ine 00:00:00 [facility] Influenza Virus 2010-05-26 Completed [facility]ine 00:00:00 [facility] Influenza Virus 2010-05-26 Completed [facility]ine 00:00:00 [facility] Influenza Virus 2010-05-26 Completed [facility]ine 00:00:00 [facility] Influenza Virus 2010-05-26 Completed [facility]ine 00:00:00 [facility] Influenza Virus 2010-05-26 Completed [facility] 00:00:00 [facility] Influenza Virus 2010-05-26 Completed [facility]ine 00:00:00 [facility] Influenza Virus 2010-05-26 Completed [facility] 00:00:00 [facility] Influenza Virus 2010-05-26 Completed [facility] 00:00:00 [facility] Influenza Virus 2010-05-26 Completed [facility]ine 00:00:00 [facility] Influenza Virus 2010-05-26 Completed [facility]ine 00:00:00 [facility] Influenza Virus 2010-05-26 Completed [facility]ine 00:00:00 [facility] Influenza Virus 2010-05-26 Completed [facility]ine 00:00:00 [facility] Influenza Virus 2010-05-26 Completed [facility]ine 00:00:00 [facility] Influenza Virus 2010-05-26 Completed [facility]ine 00:00:00 [facility] Influenza Virus 2010-05-26 Completed [facility]ine 00:00:00 [facility] Influenza Virus 2010-05-26 Completed [facility] 00:00:00 [facility] Influenza Virus 2010-05-26 Completed [facility]ine 00:00:00 [facility] Influenza Virus 2010-05-26 Completed [facility] 00:00:00 [facility] Influenza Virus 2010-05-26 Completed [facility] 00:00:00 [facility] Influenza Virus 2010-05-26 Completed [facility] 00:00:00 [facility] Influenza Virus 2010-05-26 Completed [facility] 00:00:00 [facility] Influenza Virus 2010-05-26 Completed [facility]ine 00:00:00 [facility] Influenza Virus 2010-05-26 Completed [facility] 00:00:00 [facility] Influenza Virus 2010-05-26 Completed [facility]ine 00:00:00 [facility] Influenza Virus 2010-05-26 Completed [facility]ine 00:00:00 [facility] Influenza Virus 2010-05-26 Completed [facility] 00:00:00 [facility] Influenza Virus 2010-05-26 Completed [facility] 00:00:00 [facility] Influenza Virus 2010-05-26 Completed [facility] 00:00:00 [facility] Influenza Virus 2010-05-26 Completed [facility]ine 00:00:00 [facility] Influenza Virus 2010-05-26 Completed [facility]ine 00:00:00 [facility] Influenza Virus 2010-05-26 Completed [facility]ine 00:00:00 [facility] Influenza Virus 2010-05-26 Completed [facility]ine 00:00:00 [facility] Influenza Virus 2010-05-26 Completed [facility]ine 00:00:00 [facility] Influenza Virus 2010-05-26 Completed [facility]ine 00:00:00 [facility] Influenza Virus 2010-05-26 Completed [facility]ine 00:00:00 [facility] Influenza Virus 2010-05-26 Completed [facility]ine 00:00:00 [facility] Influenza Virus 2010-05-26 Completed [facility]ine 00:00:00 [facility] Influenza Virus 2010-05-26 Completed [facility]ine 00:00:00 [facility] Influenza Virus 2010-05-26 Completed [facility]ine 00:00:00 [facility] Influenza Virus 2010-05-26 Completed [facility]ine 00:00:00 [facility] Influenza Virus 2010-05-26 Completed [facility]ine 00:00:00 [facility] Influenza Virus 2010-05-26 Completed [facility]ine 00:00:00 [facility] Influenza Virus 2009-06-23 Completed [facility]ine 00:00:00 [facility] Influenza Virus 2009-06-23 Completed [facility]ine 00:00:00 [facility] Influenza Virus 2009-06-23 Completed [facility]ine 00:00:00 [facility] Influenza Virus 2009-06-23 Completed [facility]ine 00:00:00 [facility] Influenza Virus 2009-06-23 Completed [facility] 00:00:00 [facility] Influenza Virus 2009-06-23 Completed [facility]ine 00:00:00 [facility] Influenza Virus 2009-06-23 Completed [facility]ine 00:00:00 [facility] Influenza Virus 2009-06-23 Completed [facility] 00:00:00 [facility] Influenza Virus 2009-06-23 Completed [facility] 00:00:00 [facility] Influenza Virus 2009-06-23 Completed [facility]ine 00:00:00 [facility] Influenza Virus 2009-06-23 Completed [facility]ine 00:00:00 [facility] Influenza Virus 2009-06-23 Completed [facility]ine 00:00:00 [facility] Influenza Virus 2009-06-23 Completed [facility]ine 00:00:00 [facility] Influenza Virus 2009-06-23 Completed [facility]ine 00:00:00 [facility] Influenza Virus 2009-06-23 Completed [facility] 00:00:00 [facility] Influenza Virus 2009-06-23 Completed [facility]ine 00:00:00 [facility] Influenza Virus 2009-06-23 Completed [facility]ine 00:00:00 [facility] Influenza Virus 2009-06-23 Completed [facility]ine 00:00:00 [facility] Influenza Virus 2009-06-23 Completed [facility]ine 00:00:00 [facility] Influenza Virus 2009-06-23 Completed [facility]ine 00:00:00 [facility] Influenza Virus 2009-06-23 Completed [facility]ine 00:00:00 [facility] Influenza Virus 2009-06-23 Completed [facility]ine 00:00:00 [facility] Influenza Virus 2009-06-23 Completed [facility] 00:00:00 [facility] Influenza Virus 2009-06-23 Completed [facility]ine 00:00:00 [facility] Influenza Virus 2009-06-23 Completed [facility]ine 00:00:00 [facility] Influenza Virus 2009-06-23 Completed [facility]ine 00:00:00 [facility] Influenza Virus 2009-06-23 Completed [facility]ine 00:00:00 [facility] Influenza Virus 2009-06-23 Completed [facility]ine 00:00:00 [facility] Influenza Virus 2009-06-23 Completed [facility]ine 00:00:00 [facility] Influenza Virus 2009-06-23 Completed [facility] 00:00:00 [facility] Influenza Virus 2009-06-23 Completed [facility] 00:00:00 [facility] Influenza Virus 2009-06-23 Completed [facility]ine 00:00:00 [facility] Influenza Virus 2009-06-23 Completed [facility]ine 00:00:00 [facility] Influenza Virus 2009-06-23 Completed [facility]ine 00:00:00 [facility] Influenza Virus 2009-06-23 Completed [facility]ine 00:00:00 [facility] Influenza Virus 2009-06-23 Completed [facility]ine 00:00:00 [facility] Influenza Virus 2009-06-23 Completed [facility]ine 00:00:00 [facility] Influenza Virus 2009-06-23 Completed [facility]ine 00:00:00 [facility] Influenza Virus 2009-06-23 Completed [facility]ine 00:00:00 [facility] Influenza Virus 2009-06-23 Completed [facility]ine 00:00:00 [facility] Influenza Virus 2009-06-23 Completed [facility]ine 00:00:00 [facility] Influenza Virus 2009-06-23 Completed [facility]ine 00:00:00 [facility] Influenza Virus 2009-06-23 Completed [facility]ine 00:00:00 [facility] Influenza Virus 2009-06-23 Completed [facility] Vaccine 00:00:00 [facility] Influenza Virus 2009-06-23 Completed [facility] Vaccine 00:00:00 [facility] Influenza Virus 2009-06-23 Completed [facility]ine 00:00:00 [facility] Influenza Virus 2009-06-23 Completed [facility]ine 00:00:00 [facility] Influenza Virus 2009-06-23 Completed [facility] Vaccine 00:00:00 [facility] Influenza Virus 2009-06-23 Completed [facility]ine 00:00:00 [facility] Influenza Virus 2009-06-23 Completed [facility]ine 00:00:00 [facility] Influenza Virus 2009-06-23 Completed [facility]ine 00:00:00 [facility] Influenza Virus 2009-06-23 Completed [facility] Vaccine 00:00:00 [facility] Influenza Virus 2009-06-23 Completed [facility]ine 00:00:00 [facility] Influenza Virus 2009-06-23 Completed [facility]ine 00:00:00 [facility] Influenza Virus 2009-06-23 Completed [facility]ine 00:00:00 [facility] Influenza Virus 2009-06-23 Completed [facility]ine 00:00:00 [facility] Influenza Virus 2009-06-23 Completed [facility]ine 00:00:00 [facility] Influenza Virus 2009-06-23 Completed [facility]ine 00:00:00 [facility] Influenza Virus 2009-06-23 Completed [facility]ine 00:00:00 [facility] Influenza Virus 2009-06-23 Completed [facility]ine 00:00:00 [facility] Influenza Virus 2009-06-23 Completed [facility]ine 00:00:00 [facility] Influenza Virus 2009-06-23 Completed [facility] Vaccine 00:00:00 [facility] Influenza Virus 2009-06-23 Completed [facility]ine 00:00:00 [facility] Influenza Virus 2009-06-23 Completed [facility]ine 00:00:00 [facility] Influenza Virus 2009-06-23 Completed [facility]ine 00:00:00 [facility] Influenza Virus 2009-06-23 Completed [facility] 00:00:00 [facility] Influenza Virus 2009-06-23 Completed [facility] 00:00:00 [facility] Influenza Virus 2009-06-23 Completed [facility] 00:00:00 [facility] Influenza Virus 2009-06-23 Completed [facility] Vaccine 00:00:00 [facility] Influenza Virus 2009-06-23 Completed [facility]ine 00:00:00 [facility] Influenza Virus 2009-06-23 Completed [facility] Vaccine 00:00:00 [facility] Influenza Virus 2009-06-23 Completed [facility] Vaccine 00:00:00 [facility] Influenza Virus 2009-06-23 Completed [facility]ine 00:00:00 [facility] Influenza Virus 2009-06-23 Completed [facility] 00:00:00 [facility] Influenza Virus 2009-06-23 Completed [facility]ine 00:00:00 [facility] Influenza Virus 2009-06-23 Completed [facility]ine 00:00:00 [facility] Influenza Virus 2009-06-23 Completed [facility] 00:00:00 [facility] Influenza Virus 2009-06-23 Completed [facility] 00[facility]00:00 [facility] Influenza Virus 2009-06-23 Completed [facility] 00:00:00 [facility] Influenza Virus 2009-06-23 Completed [facility] 00:00:00 [facility] Influenza Virus 2009-06-23 Completed [facility] 00:00:00 [facility] Influenza Virus 2009-06-23 Completed [facility] 00:00:00 [facility] Influenza Virus 2009-06-23 Completed [facility]ine 00:00:00 [facility] Influenza Virus 2009-06-23 Completed [facility]ine 00[facility]00:00 [facility] Influenza Virus 2009-06-23 Completed [facility]ine 00:00:00 [facility] Influenza Virus 2009-06-23 Completed [facility]ine 00:00:00 [facility] Influenza Virus 2009-06-23 Completed [facility]ine 00:00:00 [facility] Influenza Virus 2009-06-23 Completed [facility] 00:00:00 [facility] Influenza Virus 2009-06-23 Completed [facility] 00:00:00 [facility] Influenza Virus 2009-06-23 Completed [facility] 00:00:00 [facility] Influenza Virus 2009-06-23 Completed [facility] 00:00:00 [facility] Influenza Virus 2009-06-23 Completed [facility]ine 00:00:00 [facility] Influenza Virus 2009-06-23 Completed [facility] 00:00:00 [facility] Influenza Virus 2009-06-23 Completed [facility] 00:00:00 [facility] Influenza Virus 2009-06-23 Completed [facility] 00:00:00 [facility] Influenza Virus 2009-06-23 Completed [facility]ine 00:00:00 [facility] Influenza Virus 2009-06-23 Completed [facility]ine 00:00:00 [facility] Influenza Virus 2009-06-23 Completed [facility] 00:00:00 [facility] Influenza Virus 2009-06-23 Completed [facility] 00:00:00 [facility] Influenza Virus 2009-06-23 Completed [facility]ine 00:00:00 [facility] Influenza Virus 2009-06-23 Completed [facility] 00:00:00 [facility] Influenza Virus 2009-06-23 Completed [facility]ine 00:00:00 [facility] Influenza Virus 2009-06-23 Completed [facility]ine 00:00:00 [facility] Influenza Virus 2009-06-23 Completed [facility] 00:00:00 [facility] Influenza Virus 2009-06-23 Completed [facility]ine 00:00:00 [facility] Influenza Virus 2009-05-20 Completed [facility]ine 00:00:00 [facility] Influenza Virus 2009-05-20 Completed [facility]ine 00:00:00 [facility] Influenza Virus 2009-05-20 Completed [facility] 00:00:00 [facility] Influenza Virus 2009-05-20 Completed [facility] 00:00:00 [facility] Influenza Virus 2009-05-20 Completed [facility] 00:00:00 [facility] Influenza Virus 2009-05-20 Completed [facility]ine 00:00:00 [facility] Influenza Virus 2009-05-20 Completed [facility]ine 00:00:00 [facility] Influenza Virus 2009-05-20 Completed [facility]ine 00:00:00 [facility] Influenza Virus 2009-05-20 Completed [facility]ine 00:00:00 [facility] Influenza Virus 2009-05-20 Completed [facility]ine 00:00:00 [facility] Influenza Virus 2009-05-20 Completed [facility] 00:00:00 [facility] Influenza Virus 2009-05-20 Completed [facility]ine 00:00:00 [facility] Influenza Virus 2009-05-20 Completed [facility] 00:00:00 [facility] Influenza Virus 2009-05-20 Completed [facility] 00:00:00 [facility] Influenza Virus 2009-05-20 Completed [facility]ine 00:00:00 [facility] Influenza Virus 2009-05-20 Completed [facility]ine 00:00:00 [facility] Influenza Virus 2009-05-20 Completed [facility]ine 00:00:00 [facility] Influenza Virus 2009-05-20 Completed [facility]ine 00:00:00 [facility] Influenza Virus 2009-05-20 Completed [facility]ine 00:00:00 [facility] Influenza Virus 2009-05-20 Completed [facility] 00:00:00 [facility] Influenza Virus 2009-05-20 Completed [facility] 00:00:00 [facility] Influenza Virus 2009-05-20 Completed [facility]ine 00:00:00 [facility] Influenza Virus 2009-05-20 Completed [facility]ine 00:00:00 [facility] Influenza Virus 2009-05-20 Completed [facility] 00:00:00 [facility] Influenza Virus 2009-05-20 Completed [facility] 00:00:00 [facility] Influenza Virus 2009-05-20 Completed [facility]ine 00:00:00 [facility] Influenza Virus 2009-05-20 Completed [facility] 00:00:00 [facility] Influenza Virus 2009-05-20 Completed [facility]ine 00:00:00 [facility] Influenza Virus 2009-05-20 Completed [facility]ine 00:00:00 [facility] Influenza Virus 2009-05-20 Completed [facility] 00:00:00 [facility] Influenza Virus 2009-05-20 Completed [facility] 00:00:00 [facility] Influenza Virus 2009-05-20 Completed [facility] 00:00:00 [facility] Influenza Virus 2009-05-20 Completed [facility] 00:00:00 [facility] Influenza Virus 2009-05-20 Completed [facility] 00:00:00 [facility] Influenza Virus 2009-05-20 Completed [facility] 00:00:00 [facility] Influenza Virus 2009-05-20 Completed [facility]ine 00:00:00 [facility] Influenza Virus 2009-05-20 Completed [facility] 00:00:00 [facility] Influenza Virus 2009-05-20 Completed [facility] 00:00:00 [facility] Influenza Virus 2009-05-20 Completed [facility] 00:00:00 [facility] Influenza Virus 2009-05-20 Completed [facility] 00:00:00 [facility] Influenza Virus 2009-05-20 Completed [facility] 00:00:00 [facility] Influenza Virus 2009-05-20 Completed [facility] 00:00:00 [facility] Influenza Virus 2009-05-20 Completed [facility] 00:00:00 [facility] Influenza Virus 2009-05-20 Completed [facility] 00:00:00 [facility] Influenza Virus 2009-05-20 Completed [facility] 00:00:00 [facility] Influenza Virus 2009-05-20 Completed [facility] 00:00:00 [facility] Influenza Virus 2009-05-20 Completed [facility] 00:00:00 [facility] Influenza Virus 2009-05-20 Completed [facility] 00:00:00 [facility] Influenza Virus 2009-05-20 Completed [facility] 00:00:00 [facility] Influenza Virus 2009-05-20 Completed [facility] 00:00:00 [facility] Influenza Virus 2009-05-20 Completed [facility] 00:00:00 [facility] Influenza Virus 2009-05-20 Completed [facility] 00:00:00 [facility] Influenza Virus 2009-05-20 Completed [facility] 00:00:00 [facility] Influenza Virus 2009-05-20 Completed [facility] 00:00:00 [facility] Influenza Virus 2009-05-20 Completed [facility] 00:00:00 [facility] Influenza Virus 2009-05-20 Completed [facility] 00:00:00 [facility] Influenza Virus 2009-05-20 Completed [facility] 00:00:00 [facility] Influenza Virus 2009-05-20 Completed [facility] 00:00:00 [facility] Influenza Virus 2009-05-20 Completed [facility] 00:00:00 [facility] Influenza Virus 2009-05-20 Completed [facility] 00:00:00 [facility] Influenza Virus 2009-05-20 Completed [facility] 00:00:00 [facility] Influenza Virus 2009-05-20 Completed [facility] 00:00:00 [facility] Influenza Virus 2009-05-20 Completed [facility] 00:00:00 [facility] Influenza Virus 2009-05-20 Completed [facility] 00:00:00 [facility] Influenza Virus 2009-05-20 Completed [facility] 00:00:00 [facility] Influenza Virus 2009-05-20 Completed [facility] 00:00:00 [facility] Influenza Virus 2009-05-20 Completed [facility] 00[facility]00:00 [facility] Influenza Virus 2009-05-20 Completed [facility]ine 00:00:00 [facility] Influenza Virus 2009-05-20 Completed [facility] 00:00:00 [facility] Influenza Virus 2009-05-20 Completed [facility] 00:00:00 [facility] Influenza Virus 2009-05-20 Completed [facility] 00:00:00 [facility] Influenza Virus 2009-05-20 Completed [facility] 00:00:00 [facility] Influenza Virus 2009-05-20 Completed [facility] 00:00:00 [facility] Influenza Virus 2009-05-20 Completed [facility]ine 00:00:00 [facility] Influenza Virus 2009-05-20 Completed [facility] 00:00:00 [facility] Influenza Virus 2009-05-20 Completed [facility] 00:00:00 [facility] Influenza Virus 2009-05-20 Completed [facility] 00:00:00 [facility] Influenza Virus 2009-05-20 Completed [facility] 00:00:00 [facility] Influenza Virus 2009-05-20 Completed [facility]00 [facility] [facility] Influenza Virus 2009-05-20 Completed [facility] Vaccine 00:00:00 [facility] Influenza Virus 2009-05-20 Completed [facility] Vaccine 00:00:00 [facility] Influenza Virus 2009-05-20 Completed [facility] Vaccine 00:00:00 [facility] Influenza Virus 2009-05-20 Completed [facility] Vaccine 00:00:00 [facility] Influenza Virus 2009-05-20 Completed [facility] Vaccine 00:00:00 [facility] Influenza Virus 2009-05-20 Completed [facility] Vaccine 00:00:00 [facility] Influenza Virus 2009-05-20 Completed [facility] Vaccine 00:00:00 [facility] Influenza Virus 2009-05-20 Completed [facility] Vaccine 00:00:00 [facility] Influenza Virus 2009-05-20 Completed [facility] Vaccine 00:00:00 [facility] Influenza Virus 2009-05-20 Completed [facility] Vaccine 00:00:00 [facility] Influenza Virus 2009-05-20 Completed [facility] Vaccine 00:00:00 [facility] Influenza Virus 2009-05-20 Completed [facility] Vaccine 00:00:00 [facility] Influenza Virus 2009-05-20 Completed [facility] Vaccine 00:00:00 [facility] Influenza Virus 2009-05-20 Completed [facility] Vaccine 00:00:00 [facility] Influenza Virus 2009-05-20 Completed [facility] Vaccine 00:00:00 [facility] Influenza Virus 2009-05-20 Completed [facility] Vaccine 00:00:00 [facility] Influenza Virus 2009-05-20 Completed [facility] Vaccine 00:00:00 [facility] Influenza Virus 2009-05-20 Completed [facility] Vaccine 00:00:00 [facility] Influenza Virus 2009-05-20 Completed [facility] Vaccine 00:00:00 [facility] Influenza Virus 2009-05-20 Completed [facility] Vaccine 00:00:00 [facility] Influenza Virus 2009-05-20 Completed [facility] Vaccine 00:00:00 [facility] Influenza Virus 2009-05-20 Completed [facility] Vaccine 00:00:00 [facility] Influenza Virus 2009-05-20 Completed [facility] Vaccine 00:00:00 [facility] Influenza Virus 2009-05-20 Completed [facility] Vaccine 00:00:00 [facility] Influenza Virus 2009-05-20 Completed [facility] Vaccine 00:00:00 [facility] Influenza Virus 2009-05-20 Completed [facility] Vaccine 00:00:00 [facility] Influenza Virus 2007-06-01 Completed [facility] Vaccine 00:00:00 [facility] Influenza Virus 2007-06-01 Completed [facility] Vaccine 00:00:00 [facility] Influenza Virus 2007-06-01 Completed [facility] Vaccine 00:00:00 [facility] Influenza Virus 2007-06-01 Completed [facility] Vaccine 00:00:00 [facility] Influenza Virus 2007-06-01 Completed [facility] Vaccine 00:00:00 [facility] Influenza Virus 2007-06-01 Completed [facility] Vaccine 00:00:00 [facility] Influenza Virus 2007-06-01 Completed [facility] Vaccine 00:00:00 [facility] Influenza Virus 2007-06-01 Completed [facility] Vaccine 00:00:00 [facility] Influenza Virus 2007-06-01 Completed [facility] Vaccine 00:00:00 [facility] Influenza Virus 2007-06-01 Completed [facility] Vaccine 00:00:00 [facility] Influenza Virus 2007-06-01 Completed [facility] Vaccine 00:00:00 [facility] Influenza Virus 2007-06-01 Completed [facility] Vaccine 00:00:00 [facility] Influenza Virus 2007-06-01 Completed [facility] Vaccine 00:00:00 [facility] Influenza Virus 2007-06-01 Completed [facility] Vaccine 00:00:00 [facility] Influenza Virus 2007-06-01 Completed [facility] Vaccine 00:00:00 [facility] Influenza Virus 2007-06-01 Completed [facility] Vaccine 00:00:00 [facility] Influenza Virus 2007-06-01 Completed [facility] Vaccine 00:00:00 [facility] Influenza Virus 2007-06-01 Completed [facility] Vaccine 00:00:00 [facility] Influenza Virus 2007-06-01 Completed [facility] Vaccine 00:00:00 [facility] Influenza Virus 2007-06-01 Completed [facility] Vaccine 00:00:00 [facility] Influenza Virus 2007-06-01 Completed [facility] Vaccine 00:00:00 [facility] Influenza Virus 2007-06-01 Completed [facility] Vaccine 00:00:00 [facility] Influenza Virus 2007-06-01 Completed [facility] Vaccine 00:00:00 [facility] Influenza Virus 2007-06-01 Completed [facility] Vaccine 00:00:00 [facility] Influenza Virus 2007-06-01 Completed [facility] Vaccine 00:00:00 [facility] Influenza Virus 2007-06-01 Completed [facility] Vaccine 00:00:00 [facility] Influenza Virus 2007-06-01 Completed [facility] Vaccine 00:00:00 [facility] Influenza Virus 2007-06-01 Completed [facility] Vaccine 00:00:00 [facility] Influenza Virus 2007-06-01 Completed [facility] Vaccine 00:00:00 [facility] Influenza Virus 2007-06-01 Completed [facility] Vaccine 00:00:00 [facility] Influenza Virus 2007-06-01 Completed [facility] Vaccine 00:00:00 [facility] Influenza Virus 2007-06-01 Completed [facility] Vaccine 00:00:00 [facility] Influenza Virus 2007-06-01 Completed [facility] Vaccine 00:00:00 [facility] Influenza Virus 2007-06-01 Completed [facility] Vaccine 00:00:00 [facility] Influenza Virus 2007-06-01 Completed [facility] Vaccine 00:00:00 [facility] Influenza Virus 2007-06-01 Completed [facility] Vaccine 00:00:00 [facility] Influenza Virus 2007-06-01 Completed [facility] Vaccine 00:00:00 [facility] Influenza Virus 2007-06-01 Completed [facility] Vaccine 00:00:00 [facility] Influenza Virus 2007-06-01 Completed [facility] Vaccine 00:00:00 [facility] Influenza Virus 2007-06-01 Completed [facility] Vaccine 00:00:00 [facility] Influenza Virus 2007-06-01 Completed [facility] Vaccine 00:00:00 [facility] Influenza Virus 2007-06-01 Completed [facility] Vaccine 00:00:00 [facility] Influenza Virus 2007-06-01 Completed [facility] Vaccine 00:00:00 [facility] Influenza Virus 2007-06-01 Completed [facility] Vaccine 00:00:00 [facility] Influenza Virus 2007-06-01 Completed [facility] Vaccine 00:00:00 [facility] Influenza Virus 2007-06-01 Completed [facility] Vaccine 00:00:00 [facility] Influenza Virus 2007-06-01 Completed [facility] Vaccine 00:00:00 [facility] Influenza Virus 2007-06-01 Completed [facility] Vaccine 00:00:00 [facility] Influenza Virus 2007-06-01 Completed [facility] Vaccine 00:00:00 [facility] Influenza Virus 2007-06-01 Completed [facility] Vaccine 00:00:00 [facility] Influenza Virus 2007-06-01 Completed [facility] Vaccine 00:00:00 [facility] Influenza Virus 2007-06-01 Completed [facility] Vaccine 00:00:00 [facility] Influenza Virus 2007-06-01 Completed [facility] Vaccine 00:00:00 [facility] Influenza Virus 2007-06-01 Completed [facility] Vaccine 00:00:00 [facility] Influenza Virus 2007-06-01 Completed [facility] Vaccine 00:00:00 [facility] Influenza Virus 2007-06-01 Completed [facility] Vaccine 00:00:00 [facility] Influenza Virus 2007-06-01 Completed [facility] Vaccine 00:00:00 [facility] Influenza Virus 2007-06-01 Completed [facility] Vaccine 00:00:00 [facility] Influenza Virus 2007-06-01 Completed [facility] Vaccine 00:00:00 [facility] Influenza Virus 2007-06-01 Completed [facility] Vaccine 00:00:00 [facility] Influenza Virus 2007-06-01 Completed [facility] Vaccine 00:00:00 [facility] Influenza Virus 2007-06-01 Completed [facility] Vaccine 00:00:00 [facility] Influenza Virus 2007-06-01 Completed [facility] Vaccine 00:00:00 [facility] Influenza Virus 2007-06-01 Completed [facility] Vaccine 00:00:00 [facility] Influenza Virus 2007-06-01 Completed [facility] Vaccine 00:00:00 [facility] Influenza Virus 2007-06-01 Completed [facility] Vaccine 00:00:00 [facility] Influenza Virus 2007-06-01 Completed [facility] Vaccine 00:00:00 [facility] Influenza Virus 2007-06-01 Completed [facility] Vaccine 00:00:00 [facility] Influenza Virus 2007-06-01 Completed [facility] Vaccine 00:00:00 [facility] Influenza Virus 2007-06-01 Completed [facility] Vaccine 00:00:00 [facility] Influenza Virus 2007-06-01 Completed [facility] Vaccine 00:00:00 [facility] Influenza Virus 2007-06-01 Completed [facility] Vaccine 00:00:00 [facility] Influenza Virus 2007-06-01 Completed [facility] Vaccine 00:00:00 [facility] Influenza Virus 2007-06-01 Completed [facility] Vaccine 00:00:00 [facility] Influenza Virus 2007-06-01 Completed [facility] Vaccine 00:00:00 [facility] Influenza Virus 2007-06-01 Completed [facility] Vaccine 00:00:00 [facility] Influenza Virus 2007-06-01 Completed [facility] Vaccine 00:00:00 [facility] Influenza Virus 2007-06-01 Completed [facility] Vaccine 00:00:00 [facility] Influenza Virus 2007-06-01 Completed [facility] Vaccine 00:00:00 [facility] Influenza Virus 2007-06-01 Completed [facility] Vaccine 00:00:00 [facility] Influenza Virus 2007-06-01 Completed [facility] Vaccine 00:00:00 [facility] Influenza Virus 2007-06-01 Completed [facility] Vaccine 00:00:00 [facility] Influenza Virus 2007-06-01 Completed [facility] Vaccine 00:00:00 [facility] Influenza Virus 2007-06-01 Completed [facility] Vaccine 00:00:00 [facility] Influenza Virus 2007-06-01 Completed [facility] Vaccine 00:00:00 [facility] Influenza Virus 2007-06-01 Completed [facility] Vaccine 00:00:00 [facility] Influenza Virus 2007-06-01 Completed [facility] Vaccine 00:00:00 [facility] Influenza Virus 2007-06-01 Completed [facility] Vaccine 00:00:00 [facility] Influenza Virus 2007-06-01 Completed [facility] Vaccine 00:00:00 [facility] Influenza Virus 2007-06-01 Completed [facility] Vaccine 00:00:00 [facility] Influenza Virus 2007-06-01 Completed [facility] Vaccine 00:00:00 [facility] Influenza Virus 2007-06-01 Completed [facility] Vaccine 00:00:00 [facility] Influenza Virus 2007-06-01 Completed [facility] Vaccine 00:00:00 [facility] Influenza Virus 2007-06-01 Completed [facility] Vaccine 00:00:00 [facility] Influenza Virus 2007-06-01 Completed [facility] Vaccine 00:00:00 [facility] Influenza Virus 2007-06-01 Completed [facility] Vaccine 00:00:00 [facility] Influenza Virus 2007-06-01 Completed [facility] Vaccine 00:00:00 [facility] Influenza Virus 2007-06-01 Completed [facility] Vaccine 00:00:00 [facility] Influenza Virus 2007-06-01 Completed [facility] Vaccine 00:00:00 [facility] Influenza Virus 2007-06-01 Completed [facility] Vaccine 00:00:00 [facility] Influenza Virus 2007-06-01 Completed [facility] Vaccine 00:00:00 [facility] Influenza Virus 2007-06-01 Completed [facility] Vaccine 00:00:00 [facility] Influenza Virus 2007-06-01 Completed [facility] Vaccine 00:00:00 [facility] Influenza Virus 2007-06-01 Completed [facility] Vaccine 00:00:00 [facility] Influenza Virus 2007-06-01 Completed [facility] Vaccine 00:00:00 [facility] DTAP 2006-05-24 Completed [facility] 00:00:00 [facility] Proquad 2006-05-24 Completed [facility] of (MMR/VARICELLA) 00:00:00 [facility] Polio (IPV/OPV) 2006-05-24 Completed [facility] 00:00:00 [facility] DTAP 2006-05-24 Completed [facility] 00:00:00 [facility] Proquad 2006-05-24 Completed [facility] (MMR/VARICELLA) 00:00:00 [facility] Polio (IPV/OPV) 2006-05-24 Completed [facility] 00:00:00 [facility] DTAP 2006-05-24 Completed [facility] 00:00:00 [facility] Proquad 2006-05-24 Completed [facility] (MMR/VARICELLA) 00:00:00 [facility] Polio (IPV/OPV) 2006-05-24 Completed [facility] 00:00:00 [facility] DTAP 2006-05-24 Completed [facility] 00:00:00 [facility] Proquad 2006-05-24 Completed [facility] (MMR/VARICELLA) 00:00:00 [facility] Polio (IPV/OPV) 2006-05-24 Completed [facility] 00:00:00 [facility] DTAP 2006-05-24 Completed [facility] 00:00:00 [facility] Proquad 2006-05-24 Completed [facility] (MMR/VARICELLA) 00:00:00 [facility] Polio (IPV/OPV) 2006-05-24 Completed [facility] 00:00:00 [facility] DTAP 2006-05-24 Completed [facility] 00:00:00 [facility] Proquad 2006-05-24 Completed [facility] (MMR/VARICELLA) 00:00:00 [facility] Polio (IPV/OPV) 2006-05-24 Completed [facility] 00:00:00 [facility] DTAP 2006-05-24 Completed [facility] 00:00:00 [facility] Proquad 2006-05-24 Completed [facility] (MMR/VARICELLA) 00:00:00 [facility] Polio (IPV/OPV) 2006-05-24 Completed [facility] 00:00:00 [facility] DTAP 2006-05-24 Completed [facility] 00:00:00 [facility] Proquad 2006-05-24 Completed [facility] (MMR/VARICELLA) 00:00:00 [facility] Polio (IPV/OPV) 2006-05-24 Completed [facility] 00:00:00 [facility] DTAP 2006-05-24 Completed [facility] 00:00:00 [facility] Proquad 2006-05-24 Completed [facility] (MMR/VARICELLA) 00:00:00 [facility] Polio (IPV/OPV) 2006-05-24 Completed [facility] 00:00:00 [facility] DTAP 2006-05-24 Completed [facility] 00:00:00 [facility] Proquad 2006-05-24 Completed [facility] (MMR/VARICELLA) 00:00:00 [facility] Polio (IPV/OPV) 2006-05-24 Completed [facility] 00:00:00 [facility] DTAP 2006-05-24 Completed [facility] 00:00:00 [facility] Proquad 2006-05-24 Completed [facility] (MMR/VARICELLA) 00:00:00 [facility] Polio (IPV/OPV) 2006-05-24 Completed [facility] 00:00:00 [facility] DTAP 2006-05-24 Completed [facility] 00:00:00 [facility] Proquad 2006-05-24 Completed [facility] (MMR/VARICELLA) 00:00:00 [facility] Polio (IPV/OPV) 2006-05-24 Completed [facility] 00:00:00 [facility] DTAP 2006-05-24 Completed [facility] 00:00:00 [facility] Proquad 2006-05-24 Completed [facility] (MMR/VARICELLA) 00:00:00 [facility] Polio (IPV/OPV) 2006-05-24 Completed [facility] 00:00:00 [facility] DTAP 2006-05-24 Completed [facility] 00:00:00 [facility] Proquad 2006-05-24 Completed [facility] (MMR/VARICELLA) 00:00:00 [facility] Polio (IPV/OPV) 2006-05-24 Completed [facility] 00:00:00 [facility] DTAP 2006-05-24 Completed [facility] 00:00:00 [facility] Proquad 2006-05-24 Completed [facility] (MMR/VARICELLA) 00:00:00 [facility] Polio (IPV/OPV) 2006-05-24 Completed [facility] 00:00:00 [facility] DTAP 2006-05-24 Completed [facility] 00:00:00 [facility] Proquad 2006-05-24 Completed [facility] (MMR/VARICELLA) 00:00:00 [facility] Polio (IPV/OPV) 2006-05-24 Completed [facility] 00:00:00 [facility] DTAP 2006-05-24 Completed [facility] 00:00:00 [facility] Proquad 2006-05-24 Completed [facility] (MMR/VARICELLA) 00:00:00 [facility] Polio (IPV/OPV) 2006-05-24 Completed [facility] 00:00:00 [facility] DTAP 2006-05-24 Completed [facility] 00:00:00 [facility] Proquad 2006-05-24 Completed [facility] (MMR/VARICELLA) 00:00:00 [facility] Polio (IPV/OPV) 2006-05-24 Completed [facility] 00:00:00 [facility] DTAP 2006-05-24 Completed [facility] 00:00:00 [facility] Proquad 2006-05-24 Completed [facility] (MMR/VARICELLA) 00:00:00 [facility] Polio (IPV/OPV) 2006-05-24 Completed [facility] 00:00:00 [facility] DTAP 2006-05-24 Completed [facility] 00:00:00 [facility] Proquad 2006-05-24 Completed [facility] (MMR/VARICELLA) 00:00:00 [facility] Polio (IPV/OPV) 2006-05-24 Completed [facility] 00:00:00 [facility] DTAP 2006-05-24 Completed [facility] 00:00:00 [facility] Proquad 2006-05-24 Completed [facility] (MMR/VARICELLA) 00:00:00 [facility] Polio (IPV/OPV) 2006-05-24 Completed [facility] 00:00:00 [facility] DTAP 2006-05-24 Completed [facility] 00:00:00 [facility] Proquad 2006-05-24 Completed [facility] (MMR/VARICELLA) 00:00:00 [facility] Polio (IPV/OPV) 2006-05-24 Completed [facility] 00:00:00 [facility] DTAP 2006-05-24 Completed [facility] 00:00:00 [facility] Proquad 2006-05-24 Completed [facility] (MMR/VARICELLA) 00:00:00 [facility] Polio (IPV/OPV) 2006-05-24 Completed [facility] 00:00:00 [facility] DTAP 2006-05-24 Completed [facility] 00:00:00 [facility] Proquad 2006-05-24 Completed [facility] (MMR/VARICELLA) 00:00:00 [facility] Polio (IPV/OPV) 2006-05-24 Completed [facility] 00:00:00 [facility] DTAP 2006-05-24 Completed [facility] 00:00:00 [facility] Proquad 2006-05-24 Completed [facility] (MMR/VARICELLA) 00:00:00 [facility] Polio (IPV/OPV) 2006-05-24 Completed [facility] 00:00:00 [facility] DTAP 2006-05-24 Completed [facility] 00:00:00 [facility] Proquad 2006-05-24 Completed [facility] (MMR/VARICELLA) 00:00:00 [facility] Polio (IPV/OPV) 2006-05-24 Completed [facility] 00:00:00 [facility] DTAP 2006-05-24 Completed [facility] 00:00:00 [facility] Proquad 2006-05-24 Completed [facility] (MMR/VARICELLA) 00:00:00 [facility] Polio (IPV/OPV) 2006-05-24 Completed [facility] 00:00:00 [facility] DTAP 2006-05-24 Completed [facility] 00:00:00 [facility] Proquad 2006-05-24 Completed [facility] (MMR/VARICELLA) 00:00:00 [facility] Polio (IPV/OPV) 2006-05-24 Completed [facility] 00:00:00 [facility] DTAP 2006-05-24 Completed [facility] 00:00:00 [facility] Proquad 2006-05-24 Completed [facility] (MMR/VARICELLA) 00:00:00 [facility] Polio (IPV/OPV) 2006-05-24 Completed [facility] 00:00:00 [facility] DTAP 2006-05-24 Completed [facility] 00:00:00 [facility] Proquad 2006-05-24 Completed [facility] (MMR/VARICELLA) 00:00:00 [facility] Polio (IPV/OPV) 2006-05-24 Completed [facility] 00:00:00 [facility] DTAP 2006-05-24 Completed [facility] 00:00:00 [facility] Proquad 2006-05-24 Completed [facility] (MMR/VARICELLA) 00:00:00 [facility] Polio (IPV/OPV) 2006-05-24 Completed [facility] 00:00:00 [facility] DTAP 2006-05-24 Completed [facility] 00:00:00 [facility] Proquad 2006-05-24 Completed [facility] (MMR/VARICELLA) 00:00:00 [facility] Polio (IPV/OPV) 2006-05-24 Completed [facility] 00:00:00 [facility] DTAP 2006-05-24 Completed [facility] 00:00:00 [facility] Proquad 2006-05-24 Completed [facility] (MMR/VARICELLA) 00:00:00 [facility] Polio (IPV/OPV) 2006-05-24 Completed [facility] 00:00:00 [facility] DTAP 2006-05-24 Completed [facility] 00:00:00 [facility] Proquad 2006-05-24 Completed [facility] (MMR/VARICELLA) 00:00:00 [facility] Polio (IPV/OPV) 2006-05-24 Completed [facility] 00:00:00 [facility] DTAP 2006-05-24 Completed [facility] 00:00:00 [facility] Proquad 2006-05-24 Completed [facility] (MMR/VARICELLA) 00:00:00 [facility] Polio (IPV/OPV) 2006-05-24 Completed [facility] 00:00:00 [facility] DTAP 2006-05-24 Completed [facility] 00:00:00 [facility] Proquad 2006-05-24 Completed [facility] (MMR/VARICELLA) 00:00:00 [facility] Polio (IPV/OPV) 2006-05-24 Completed [facility] 00:00:00 [facility] DTAP 2006-05-24 Completed [facility] 00:00:00 [facility] Proquad 2006-05-24 Completed [facility] of (MMR/VARICELLA) 00:00:00 [facility] Polio (IPV/OPV) 2006-05-24 Completed [facility] 00:00:00 [facility] DTAP 2006-05-24 Completed [facility] 00:00:00 [facility] Proquad 2006-05-24 Completed [facility] of (MMR/VARICELLA) 00:00:00 [facility] Polio (IPV/OPV) 2006-05-24 Completed [facility] 00:00:00 [facility] DTAP 2006-05-24 Completed [facility] 00:00:00 [facility] Proquad 2006-05-24 Completed [facility] (MMR/VARICELLA) 00:00:00 [facility] Polio (IPV/OPV) 2006-05-24 Completed [facility] 00:00:00 [facility] DTAP 2006-05-24 Completed [facility] 00:00:00 [facility] Proquad 2006-05-24 Completed [facility] (MMR/VARICELLA) 00:00:00 [facility] Polio (IPV/OPV) 2006-05-24 Completed [facility] 00:00:00 [facility] DTAP 2006-05-24 Completed [facility] 00:00:00 [facility] Proquad 2006-05-24 Completed [facility] (MMR/VARICELLA) 00:00:00 [facility] Polio (IPV/OPV) 2006-05-24 Completed [facility] 00:00:00 [facility] DTAP 2006-05-24 Completed [facility] 00:00:00 [facility] Proquad 2006-05-24 Completed [facility] (MMR/VARICELLA) 00:00:00 [facility] Polio (IPV/OPV) 2006-05-24 Completed [facility] 00:00:00 [facility] DTAP 2006-05-24 Completed [facility] 00:00:00 [facility] Proquad 2006-05-24 Completed [facility] (MMR/VARICELLA) 00:00:00 [facility] Polio (IPV/OPV) 2006-05-24 Completed [facility] 00:00:00 [facility] DTAP 2006-05-24 Completed [facility] 00:00:00 [facility] Proquad 2006-05-24 Completed [facility] (MMR/VARICELLA) 00:00:00 [facility] Polio (IPV/OPV) 2006-05-24 Completed [facility] 00:00:00 [facility] DTAP 2006-05-24 Completed [facility] 00:00:00 [facility] Proquad 2006-05-24 Completed [facility] (MMR/VARICELLA) 00:00:00 [facility] Polio (IPV/OPV) 2006-05-24 Completed [facility] 00:00:00 [facility] DTAP 2006-05-24 Completed [facility] 00:00:00 [facility] Proquad 2006-05-24 Completed [facility] (MMR/VARICELLA) 00:00:00 [facility] Polio (IPV/OPV) 2006-05-24 Completed [facility] 00:00:00 [facility] DTAP 2006-05-24 Completed [facility] 00:00:00 [facility] Proquad 2006-05-24 Completed [facility] (MMR/VARICELLA) 00:00:00 [facility] Polio (IPV/OPV) 2006-05-24 Completed [facility] 00:00:00 [facility] DTAP 2006-05-24 Completed [facility] 00:00:00 [facility] Proquad 2006-05-24 Completed [facility] (MMR/VARICELLA) 00:00:00 [facility] Polio (IPV/OPV) 2006-05-24 Completed [facility] 00:00:00 [facility] DTAP 2006-05-24 Completed [facility] 00:00:00 [facility] Proquad 2006-05-24 Completed [facility] (MMR/VARICELLA) 00:00:00 [facility] Polio (IPV/OPV) 2006-05-24 Completed [facility] 00:00:00 [facility] DTAP 2006-05-24 Completed [facility] 00:00:00 [facility] Proquad 2006-05-24 Completed [facility] (MMR/VARICELLA) 00:00:00 [facility] Polio (IPV/OPV) 2006-05-24 Completed [facility] 00:00:00 [facility] DTAP 2006-05-24 Completed [facility] 00:00:00 [facility] Proquad 2006-05-24 Completed [facility] (MMR/VARICELLA) 00:00:00 [facility] Polio (IPV/OPV) 2006-05-24 Completed [facility] 00:00:00 [facility] DTAP 2006-05-24 Completed [facility] 00:00:00 [facility] Proquad 2006-05-24 Completed [facility] (MMR/VARICELLA) 00:00:00 [facility] Polio (IPV/OPV) 2006-05-24 Completed [facility] 00:00:00 [facility] DTAP 2006-05-24 Completed [facility] 00:00:00 [facility] Proquad 2006-05-24 Completed [facility] (MMR/VARICELLA) 00:00:00 [facility] Polio (IPV/OPV) 2006-05-24 Completed [facility] 00:00:00 [facility] DTAP 2006-05-24 Completed [facility] 00:00:00 [facility] Proquad 2006-05-24 Completed [facility] (MMR/VARICELLA) 00:00:00 [facility] Polio (IPV/OPV) 2006-05-24 Completed [facility] 00:00:00 [facility] DTAP 2006-05-24 Completed [facility] 00:00:00 [facility] Proquad 2006-05-24 Completed [facility] (MMR/VARICELLA) 00:00:00 [facility] Polio (IPV/OPV) 2006-05-24 Completed [facility] 00:00:00 [facility] DTAP 2006-05-24 Completed [facility] 00:00:00 [facility] Proquad 2006-05-24 Completed [facility] (MMR/VARICELLA) 00:00:00 [facility] Polio (IPV/OPV) 2006-05-24 Completed [facility] 00:00:00 [facility] DTAP 2006-05-24 Completed [facility] 00:00:00 [facility] Proquad 2006-05-24 Completed [facility] (MMR/VARICELLA) 00:00:00 [facility] Polio (IPV/OPV) 2006-05-24 Completed [facility] 00:00:00 [facility] DTAP 2006-05-24 Completed [facility] 00:00:00 [facility] Proquad 2006-05-24 Completed [facility] (MMR/VARICELLA) 00:00:00 [facility] Polio (IPV/OPV) 2006-05-24 Completed [facility] 00:00:00 [facility] DTAP 2006-05-24 Completed [facility] 00:00:00 [facility] Proquad 2006-05-24 Completed [facility] (MMR/VARICELLA) 00:00:00 [facility] Polio (IPV/OPV) 2006-05-24 Completed [facility] 00:00:00 [facility] DTAP 2006-05-24 Completed [facility] 00:00:00 [facility] Proquad 2006-05-24 Completed [facility] (MMR/VARICELLA) 00:00:00 [facility] Polio (IPV/OPV) 2006-05-24 Completed [facility] 00:00:00 [facility] DTAP 2006-05-24 Completed [facility] 00:00:00 [facility] Proquad 2006-05-24 Completed [facility] (MMR/VARICELLA) 00:00:00 [facility] Polio (IPV/OPV) 2006-05-24 Completed [facility] 00:00:00 [facility] DTAP 2006-05-24 Completed [facility] 00:00:00 [facility] Proquad 2006-05-24 Completed [facility] (MMR/VARICELLA) 00:00:00 [facility] Polio (IPV/OPV) 2006-05-24 Completed [facility] 00:00:00 [facility] DTAP 2006-05-24 Completed [facility] 00:00:00 [facility] Proquad 2006-05-24 Completed [facility] (MMR/VARICELLA) 00:00:00 [facility] Polio (IPV/OPV) 2006-05-24 Completed [facility] 00:00:00 [facility] DTAP 2006-05-24 Completed [facility] 00:00:00 [facility] Proquad 2006-05-24 Completed [facility] (MMR/VARICELLA) 00:00:00 [facility] Polio (IPV/OPV) 2006-05-24 Completed [facility] 00:00:00 [facility] DTAP 2006-05-24 Completed [facility] 00:00:00 [facility] Proquad 2006-05-24 Completed [facility] (MMR/VARICELLA) 00:00:00 [facility] Polio (IPV/OPV) 2006-05-24 Completed [facility] 00:00:00 [facility] DTAP 2006-05-24 Completed [facility] 00:00:00 [facility] Proquad 2006-05-24 Completed [facility] (MMR/VARICELLA) 00:00:00 [facility] Polio (IPV/OPV) 2006-05-24 Completed [facility] 00:00:00 [facility] DTAP 2006-05-24 Completed [facility] 00:00:00 [facility] Proquad 2006-05-24 Completed [facility] (MMR/VARICELLA) 00:00:00 [facility] Polio (IPV/OPV) 2006-05-24 Completed [facility] 00:00:00 [facility] DTAP 2006-05-24 Completed [facility] 00:00:00 [facility] Proquad 2006-05-24 Completed [facility] (MMR/VARICELLA) 00:00:00 [facility] Polio (IPV/OPV) 2006-05-24 Completed [facility] 00:00:00 [facility] DTAP 2006-05-24 Completed [facility] 00:00:00 [facility] Proquad 2006-05-24 Completed [facility] (MMR/VARICELLA) 00:00:00 [facility] Polio (IPV/OPV) 2006-05-24 Completed [facility] 00:00:00 [facility] DTAP 2006-05-24 Completed [facility] 00:00:00 [facility] Proquad 2006-05-24 Completed [facility] (MMR/VARICELLA) 00:00:00 [facility] Polio (IPV/OPV) 2006-05-24 Completed [facility] 00:00:00 [facility] DTAP 2006-05-24 Completed [facility] 00:00:00 [facility] Proquad 2006-05-24 Completed [facility] (MMR/VARICELLA) 00:00:00 [facility] Polio (IPV/OPV) 2006-05-24 Completed [facility] 00:00:00 [facility] DTAP 2006-05-24 Completed [facility] 00:00:00 [facility] Proquad 2006-05-24 Completed [facility] (MMR/VARICELLA) 00:00:00 [facility] Polio (IPV/OPV) 2006-05-24 Completed [facility] 00:00:00 [facility] DTAP 2006-05-24 Completed [facility] 00:00:00 [facility] Proquad 2006-05-24 Completed [facility] (MMR/VARICELLA) 00:00:00 [facility] Polio (IPV/OPV) 2006-05-24 Completed [facility] 00:00:00 [facility] DTAP 2006-05-24 Completed [facility] 00:00:00 [facility] Proquad 2006-05-24 Completed [facility] (MMR/VARICELLA) 00:00:00 [facility] Polio (IPV/OPV) 2006-05-24 Completed [facility] 00:00:00 [facility] DTAP 2006-05-24 Completed [facility] 00:00:00 [facility] Proquad 2006-05-24 Completed [facility] (MMR/VARICELLA) 00:00:00 [facility] Polio (IPV/OPV) 2006-05-24 Completed [facility] 00:00:00 [facility] DTAP 2006-05-24 Completed [facility] 00:00:00 [facility] Proquad 2006-05-24 Completed [facility] (MMR/VARICELLA) 00:00:00 [facility] Polio (IPV/OPV) 2006-05-24 Completed [facility] 00:00:00 [facility] DTAP 2006-05-24 Completed [facility] 00:00:00 [facility] Proquad 2006-05-24 Completed [facility] (MMR/VARICELLA) 00:00:00 [facility] Polio (IPV/OPV) 2006-05-24 Completed [facility] 00:00:00 [facility] DTAP 2006-05-24 Completed [facility] 00:00:00 [facility] Proquad 2006-05-24 Completed [facility] (MMR/VARICELLA) 00:00:00 [facility] Polio (IPV/OPV) 2006-05-24 Completed [facility] 00:00:00 [facility] DTAP 2006-05-24 Completed [facility] 00:00:00 [facility] Proquad 2006-05-24 Completed [facility] (MMR/VARICELLA) 00:00:00 [facility] Polio (IPV/OPV) 2006-05-24 Completed [facility] 00:00:00 [facility] DTAP 2006-05-24 Completed [facility] 00:00:00 [facility] Proquad 2006-05-24 Completed [facility] (MMR/VARICELLA) 00:00:00 [facility] Polio (IPV/OPV) 2006-05-24 Completed [facility] 00:00:00 [facility] DTAP 2006-05-24 Completed [facility] 00:00:00 [facility] Proquad 2006-05-24 Completed [facility] (MMR/VARICELLA) 00:00:00 [facility] Polio (IPV/OPV) 2006-05-24 Completed [facility] 00:00:00 [facility] DTAP 2006-05-24 Completed [facility] 00:00:00 [facility] Proquad 2006-05-24 Completed [facility] (MMR/VARICELLA) 00:00:00 [facility] Polio (IPV/OPV) 2006-05-24 Completed [facility] 00:00:00 [facility] DTAP 2006-05-24 Completed [facility] 00:00:00 [facility] Proquad 2006-05-24 Completed [facility] (MMR/VARICELLA) 00:00:00 [facility] Polio (IPV/OPV) 2006-05-24 Completed [facility] 00:00:00 [facility] DTAP 2006-05-24 Completed [facility] 00:00:00 [facility] Proquad 2006-05-24 Completed [facility] (MMR/VARICELLA) 00:00:00 [facility] Polio (IPV/OPV) 2006-05-24 Completed [facility] 00:00:00 [facility] DTAP 2006-05-24 Completed [facility] 00:00:00 [facility] Proquad 2006-05-24 Completed [facility] (MMR/VARICELLA) 00:00:00 [facility] Polio (IPV/OPV) 2006-05-24 Completed [facility] 00:00:00 [facility] DTAP 2006-05-24 Completed [facility] 00:00:00 [facility] Proquad 2006-05-24 Completed [facility] (MMR/VARICELLA) 00:00:00 [facility] Polio (IPV/OPV) 2006-05-24 Completed [facility] 00:00:00 [facility] DTAP 2006-05-24 Completed [facility] 00:00:00 [facility] Proquad 2006-05-24 Completed [facility] (MMR/VARICELLA) 00:00:00 [facility] Polio (IPV/OPV) 2006-05-24 Completed [facility] 00:00:00 [facility] DTAP 2006-05-24 Completed [facility] 00:00:00 [facility] Proquad 2006-05-24 Completed [facility] (MMR/VARICELLA) 00:00:00 [facility] Polio (IPV/OPV) 2006-05-24 Completed [facility] 00:00:00 [facility] DTAP 2006-05-24 Completed [facility] 00:00:00 [facility] Proquad 2006-05-24 Completed [facility] (MMR/VARICELLA) 00:00:00 [facility] Polio (IPV/OPV) 2006-05-24 Completed [facility] 00:00:00 [facility] DTAP 2006-05-24 Completed [facility] 00:00:00 [facility] Proquad 2006-05-24 Completed [facility] (MMR/VARICELLA) 00:00:00 [facility] Polio (IPV/OPV) 2006-05-24 Completed [facility] 00:00:00 [facility] DTAP 2006-05-24 Completed [facility] 00:00:00 [facility] Proquad 2006-05-24 Completed [facility] (MMR/VARICELLA) 00:00:00 [facility] Polio (IPV/OPV) 2006-05-24 Completed [facility] 00:00:00 [facility] DTAP 2006-05-24 Completed [facility] 00:00:00 [facility] Proquad 2006-05-24 Completed [facility] (MMR/VARICELLA) 00:00:00 [facility] Polio (IPV/OPV) 2006-05-24 Completed [facility] 00:00:00 [facility] DTAP 2006-05-24 Completed [facility] 00:00:00 [facility] Proquad 2006-05-24 Completed [facility] (MMR/VARICELLA) 00:00:00 [facility] Polio (IPV/OPV) 2006-05-24 Completed [facility] 00:00:00 [facility] DTAP 2006-05-24 Completed [facility] 00:00:00 [facility] Proquad 2006-05-24 Completed [facility] (MMR/VARICELLA) 00:00:00 [facility] Polio (IPV/OPV) 2006-05-24 Completed [facility] 00:00:00 [facility] DTAP 2006-05-24 Completed [facility] 00:00:00 [facility] Proquad 2006-05-24 Completed [facility] (MMR/VARICELLA) 00:00:00 [facility] Polio (IPV/OPV) 2006-05-24 Completed [facility] 00:00:00 [facility] DTAP 2006-05-24 Completed [facility] 00:00:00 [facility] Proquad 2006-05-24 Completed [facility] (MMR/VARICELLA) 00:00:00 [facility] Polio (IPV/OPV) 2006-05-24 Completed [facility] 00:00:00 [facility] DTAP 2006-05-24 Completed [facility] 00:00:00 [facility] Proquad 2006-05-24 Completed [facility] (MMR/VARICELLA) 00:00:00 [facility] Polio (IPV/OPV) 2006-05-24 Completed [facility] 00:00:00 [facility] DTAP 2006-05-24 Completed [facility] 00:00:00 [facility] Proquad 2006-05-24 Completed [facility] (MMR/VARICELLA) 00:00:00 [facility] Polio (IPV/OPV) 2006-05-24 Completed [facility] 00:00:00 [facility] DTAP 2006-05-24 Completed [facility] 00:00:00 [facility] Proquad 2006-05-24 Completed [facility] (MMR/VARICELLA) 00:00:00 [facility] Polio (IPV/OPV) 2006-05-24 Completed [facility] 00:00:00 [facility] DTAP 2006-05-24 Completed [facility] 00:00:00 [facility] Proquad 2006-05-24 Completed [facility] (MMR/VARICELLA) 00:00:00 [facility] Polio (IPV/OPV) 2006-05-24 Completed [facility] 00:00:00 [facility] DTAP 2006-05-24 Completed [facility] 00:00:00 [facility] Proquad 2006-05-24 Completed [facility] (MMR/VARICELLA) 00:00:00 [facility] Polio (IPV/OPV) 2006-05-24 Completed [facility] 00:00:00 [facility] DTAP 2006-05-24 Completed [facility] 00:00:00 [facility] Proquad 2006-05-24 Completed [facility] (MMR/VARICELLA) 00:00:00 [facility] Polio (IPV/OPV) 2006-05-24 Completed [facility] 00:00:00 [facility] DTAP 2006-05-24 Completed [facility] 00:00:00 [facility] Proquad 2006-05-24 Completed [facility] (MMR/VARICELLA) 00:00:00 [facility] Polio (IPV/OPV) 2006-05-24 Completed [facility] 00:00:00 [facility] DTAP 2006-05-24 Completed [facility] 00:00:00 [facility] Proquad 2006-05-24 Completed [facility] (MMR/VARICELLA) 00:00:00 [facility] Polio (IPV/OPV) 2006-05-24 Completed [facility] 00:00:00 [facility] DTAP 2006-05-24 Completed [facility] 00:00:00 [facility] Proquad 2006-05-24 Completed [facility] (MMR/VARICELLA) 00:00:00 [facility] Polio (IPV/OPV) 2006-05-24 Completed [facility] 00:00:00 [facility] HEPATITIS A 2005-05-19 Completed [facility] 00:00:00 [facility] Influenza Virus 2005-05-19 Completed [facility] Vaccine 00:00:00 [facility] HEPATITIS A 2005-05-19 Completed [facility] 00:00:00 [facility] Influenza Virus 2005-05-19 Completed [facility] Vaccine 00:00:00 [facility] HEPATITIS A 2005-05-19 Completed [facility] 00:00:00 [facility] Influenza Virus 2005-05-19 Completed [facility] Vaccine 00:00:00 [facility] HEPATITIS A 2005-05-19 Completed [facility] 00:00:00 [facility] Influenza Virus 2005-05-19 Completed [facility] Vaccine 00:00:00 [facility] HEPATITIS A 2005-05-19 Completed [facility] 00:00:00 [facility] Influenza Virus 2005-05-19 Completed [facility] Vaccine 00:00:00 [facility] HEPATITIS A 2005-05-19 Completed [facility] 00:00:00 [facility] Influenza Virus 2005-05-19 Completed [facility] Vaccine 00:00:00 [facility] HEPATITIS A 2005-05-19 Completed [facility] 00:00:00 [facility] Influenza Virus 2005-05-19 Completed [facility] Vaccine 00:00:00 [facility] HEPATITIS A 2005-05-19 Completed [facility] 00:00:00 [facility] Influenza Virus 2005-05-19 Completed [facility] Vaccine 00:00:00 [facility] HEPATITIS A 2005-05-19 Completed [facility] 00:00:00 [facility] Influenza Virus 2005-05-19 Completed [facility] Vaccine 00:00:00 [facility] HEPATITIS A 2005-05-19 Completed [facility] 00:00:00 [facility] Influenza Virus 2005-05-19 Completed [facility] Vaccine 00:00:00 [facility] HEPATITIS A 2005-05-19 Completed [facility] 00:00:00 [facility] Influenza Virus 2005-05-19 Completed [facility] Vaccine 00:00:00 [facility] HEPATITIS A 2005-05-19 Completed [facility] 00:00:00 [facility] Influenza Virus 2005-05-19 Completed [facility] Vaccine 00:00:00 [facility] HEPATITIS A 2005-05-19 Completed [facility] 00:00:00 [facility] Influenza Virus 2005-05-19 Completed [facility] Vaccine 00:00:00 [facility] HEPATITIS A 2005-05-19 Completed [facility] 00:00:00 [facility] Influenza Virus 2005-05-19 Completed [facility] Vaccine 00:00:00 [facility] HEPATITIS A 2005-05-19 Completed [facility] 00:00:00 [facility] Influenza Virus 2005-05-19 Completed [facility] Vaccine 00:00:00 [facility] HEPATITIS A 2005-05-19 Completed [facility] 00:00:00 [facility] Influenza Virus 2005-05-19 Completed [facility] Vaccine 00:00:00 [facility] HEPATITIS A 2005-05-19 Completed [facility] 00:00:00 [facility] Influenza Virus 2005-05-19 Completed [facility] Vaccine 00:00:00 [facility] HEPATITIS A 2005-05-19 Completed [facility] 00:00:00 [facility] Influenza Virus 2005-05-19 Completed [facility] Vaccine 00:00:00 [facility] HEPATITIS A 2005-05-19 Completed [facility] 00:00:00 [facility] Influenza Virus 2005-05-19 Completed [facility] Vaccine 00:00:00 [facility] HEPATITIS A 2005-05-19 Completed [facility] 00:00:00 [facility] Influenza Virus 2005-05-19 Completed [facility] Vaccine 00:00:00 [facility] HEPATITIS A 2005-05-19 Completed [facility] 00:00:00 [facility] Influenza Virus 2005-05-19 Completed [facility] Vaccine 00:00:00 [facility] HEPATITIS A 2005-05-19 Completed [facility] 00:00:00 [facility] Influenza Virus 2005-05-19 Completed [facility] Vaccine 00:00:00 [facility] HEPATITIS A 2005-05-19 Completed [facility] 00:00:00 [facility] Influenza Virus 2005-05-19 Completed [facility] Vaccine 00:00:00 [facility] HEPATITIS A 2005-05-19 Completed [facility] 00:00:00 [facility] Influenza Virus 2005-05-19 Completed [facility] Vaccine 00:00:00 [facility] HEPATITIS A 2005-05-19 Completed [facility] 00:00:00 [facility] Influenza Virus 2005-05-19 Completed [facility] Vaccine 00:00:00 [facility] HEPATITIS A 2005-05-19 Completed [facility] 00:00:00 [facility] Influenza Virus 2005-05-19 Completed [facility] Vaccine 00:00:00 [facility] HEPATITIS A 2005-05-19 Completed [facility] 00:00:00 [facility] Influenza Virus 2005-05-19 Completed [facility] Vaccine 00:00:00 [facility] HEPATITIS A 2005-05-19 Completed [facility] 00:00:00 [facility] Influenza Virus 2005-05-19 Completed [facility] Vaccine 00:00:00 [facility] HEPATITIS A 2005-05-19 Completed [facility] 00:00:00 [facility] Influenza Virus 2005-05-19 Completed [facility] Vaccine 00:00:00 [facility] HEPATITIS A 2005-05-19 Completed [facility] 00:00:00 [facility] Influenza Virus 2005-05-19 Completed [facility] Vaccine 00:00:00 [facility] HEPATITIS A 2005-05-19 Completed [facility] 00:00:00 [facility] Influenza Virus 2005-05-19 Completed [facility] Vaccine 00:00:00 [facility] HEPATITIS A 2005-05-19 Completed [facility] 00:00:00 [facility] Influenza Virus 2005-05-19 Completed [facility] Vaccine 00:00:00 [facility] HEPATITIS A 2005-05-19 Completed [facility] 00:00:00 [facility] Influenza Virus 2005-05-19 Completed [facility] Vaccine 00:00:00 [facility] HEPATITIS A 2005-05-19 Completed [facility] 00:00:00 [facility] Influenza Virus 2005-05-19 Completed [facility] Vaccine 00:00:00 [facility] HEPATITIS A 2005-05-19 Completed [facility] 00:00:00 [facility] Influenza Virus 2005-05-19 Completed [facility] Vaccine 00:00:00 [facility] HEPATITIS A 2005-05-19 Completed [facility]00 [facility] Influenza Virus 2005-05-19 Completed [facility] Vaccine 00:00:00 [facility] HEPATITIS A 2005-05-19 Completed [facility] 00:00:00 [facility] Influenza Virus 2005-05-19 Completed [facility] Vaccine 00:00:00 [facility] HEPATITIS A 2005-05-19 Completed [facility] 00:00:00 [facility] Influenza Virus 2005-05-19 Completed [facility] Vaccine 00:00:00 [facility] HEPATITIS A 2005-05-19 Completed [facility] 00:00:00 [facility] Influenza Virus 2005-05-19 Completed [facility] Vaccine 00:00:00 [facility] HEPATITIS A 2005-05-19 Completed [facility] 00:00:00 [facility] Influenza Virus 2005-05-19 Completed [facility] Vaccine 00:00:00 [facility] HEPATITIS A 2005-05-19 Completed [facility] 00:00:00 [facility] Influenza Virus 2005-05-19 Completed [facility] Vaccine 00:00:00 [facility] HEPATITIS A 2005-05-19 Completed [facility] 00:00:00 [facility] Influenza Virus 2005-05-19 Completed [facility] Vaccine 00:00:00 [facility] HEPATITIS A 2005-05-19 Completed [facility] 00:00:00 [facility] Influenza Virus 2005-05-19 Completed [facility] Vaccine 00:00:00 [facility] HEPATITIS A 2005-05-19 Completed [facility] 00:00:00 [facility] Influenza Virus 2005-05-19 Completed [facility] Vaccine 00:00:00 [facility] HEPATITIS A 2005-05-19 Completed [facility] 00:00:00 [facility] Influenza Virus 2005-05-19 Completed [facility] Vaccine 00:00:00 [facility] HEPATITIS A 2005-05-19 Completed [facility] 00:00:00 [facility] Influenza Virus 2005-05-19 Completed [facility] Vaccine 00:00:00 [facility] HEPATITIS A 2005-05-19 Completed [facility] 00:00:00 [facility] Influenza Virus 2005-05-19 Completed [facility] Vaccine 00:00:00 [facility] HEPATITIS A 2005-05-19 Completed [facility] 00:00:00 [facility] Influenza Virus 2005-05-19 Completed [facility] Vaccine 00:00:00 [facility] HEPATITIS A 2005-05-19 Completed [facility] 00:00:00 [facility] Influenza Virus 2005-05-19 Completed [facility] Vaccine 00:00:00 [facility] HEPATITIS A 2005-05-19 Completed [facility] 00:00:00 [facility] Influenza Virus 2005-05-19 Completed [facility] Vaccine 00:00:00 [facility] HEPATITIS A 2005-05-19 Completed [facility] 00:00:00 [facility] Influenza Virus 2005-05-19 Completed [facility] Vaccine 00:00:00 [facility] HEPATITIS A 2005-05-19 Completed [facility] 00:00:00 [facility] Influenza Virus 2005-05-19 Completed [facility] Vaccine 00:00:00 [facility] HEPATITIS A 2005-05-19 Completed [facility] 00:00:00 [facility] Influenza Virus 2005-05-19 Completed [facility] Vaccine 00:00:00 [facility] HEPATITIS A 2005-05-19 Completed [facility] 00:00:00 [facility] Influenza Virus 2005-05-19 Completed [facility] Vaccine 00:00:00 [facility] HEPATITIS A 2005-05-19 Completed [facility] 00:00:00 [facility] Influenza Virus 2005-05-19 Completed [facility] Vaccine 00:00:00 [facility] HEPATITIS A 2005-05-19 Completed [facility] 00:00:00 [facility] Influenza Virus 2005-05-19 Completed [facility] Vaccine 00:00:00 [facility] HEPATITIS A 2005-05-19 Completed [facility] 00:00:00 [facility] Influenza Virus 2005-05-19 Completed [facility] Vaccine 00:00:00 [facility] HEPATITIS A 2005-05-19 Completed [facility] 00:00:00 [facility] Influenza Virus 2005-05-19 Completed [facility] Vaccine 00:00:00 [facility] HEPATITIS A 2005-05-19 Completed [facility] 00:00:00 [facility] Influenza Virus 2005-05-19 Completed [facility] Vaccine 00:00:00 [facility] HEPATITIS A 2005-05-19 Completed [facility] 00:00:00 [facility] Influenza Virus 2005-05-19 Completed [facility] Vaccine 00:00:00 [facility] HEPATITIS A 2005-05-19 Completed [facility] 00:00:00 [facility] Influenza Virus 2005-05-19 Completed [facility] Vaccine 00:00:00 [facility] HEPATITIS A 2005-05-19 Completed [facility] 00:00:00 [facility] Influenza Virus 2005-05-19 Completed [facility] Vaccine 00:00:00 [facility] HEPATITIS A 2005-05-19 Completed [facility] 00:00:00 [facility] Influenza Virus 2005-05-19 Completed [facility] Vaccine 00:00:00 [facility] HEPATITIS A 2005-05-19 Completed [facility] 00:00:00 [facility] Influenza Virus 2005-05-19 Completed [facility] Vaccine 00:00:00 [facility] HEPATITIS A 2005-05-19 Completed [facility] 00:00:00 [facility] Influenza Virus 2005-05-19 Completed [facility] Vaccine 00:00:00 [facility] HEPATITIS A 2005-05-19 Completed [facility] 00:00:00 [facility] Influenza Virus 2005-05-19 Completed [facility] Vaccine 00:00:00 [facility] HEPATITIS A 2005-05-19 Completed [facility] 00:00:00 [facility] Influenza Virus 2005-05-19 Completed [facility] Vaccine 00:00:00 [facility] HEPATITIS A 2005-05-19 Completed [facility] 00:00:00 [facility] Influenza Virus 2005-05-19 Completed [facility] Vaccine 00:00:00 [facility] HEPATITIS A 2005-05-19 Completed [facility] 00:00:00 [facility] Influenza Virus 2005-05-19 Completed [facility] Vaccine 00:00:00 [facility] HEPATITIS A 2005-05-19 Completed [facility] 00:00:00 [facility] Influenza Virus 2005-05-19 Completed [facility] Vaccine 00:00:00 [facility] HEPATITIS A 2005-05-19 Completed [facility] 00:00:00 [facility] Influenza Virus 2005-05-19 Completed [facility] Vaccine 00:00:00 [facility] HEPATITIS A 2005-05-19 Completed [facility] 00:00:00 [facility] Influenza Virus 2005-05-19 Completed [facility] Vaccine 00:00:00 [facility] HEPATITIS A 2005-05-19 Completed [facility] 00:00:00 [facility] Influenza Virus 2005-05-19 Completed [facility] Vaccine 00:00:00 [facility] HEPATITIS A 2005-05-19 Completed [facility] 00:00:00 [facility] Influenza Virus 2005-05-19 Completed [facility] Vaccine 00:00:00 [facility] HEPATITIS A 2005-05-19 Completed [facility] 00:00:00 [facility] Influenza Virus 2005-05-19 Completed [facility] Vaccine 00:00:00 [facility] HEPATITIS A 2005-05-19 Completed [facility] 00:00:00 [facility] Influenza Virus 2005-05-19 Completed [facility] Vaccine 00:00:00 [facility] HEPATITIS A 2005-05-19 Completed [facility] 00:00:00 [facility] Influenza Virus 2005-05-19 Completed [facility] Vaccine 00:00:00 [facility] HEPATITIS A 2005-05-19 Completed [facility] 00:00:00 [facility] Influenza Virus 2005-05-19 Completed [facility] Vaccine 00:00:00 [facility] HEPATITIS A 2005-05-19 Completed [facility] 00:00:00 [facility] Influenza Virus 2005-05-19 Completed [facility] Vaccine 00:00:00 [facility] HEPATITIS A 2005-05-19 Completed [facility] 00:00:00 [facility] Influenza Virus 2005-05-19 Completed [facility] Vaccine 00:00:00 [facility] HEPATITIS A 2005-05-19 Completed [facility] 00:00:00 [facility] Influenza Virus 2005-05-19 Completed [facility] Vaccine 00:00:00 [facility] HEPATITIS A 2005-05-19 Completed [facility] 00:00:00 [facility] Influenza Virus 2005-05-19 Completed [facility] Vaccine 00:00:00 [facility] HEPATITIS A 2005-05-19 Completed [facility] 00:00:00 [facility] Influenza Virus 2005-05-19 Completed [facility] Vaccine 00:00:00 [facility] HEPATITIS A 2005-05-19 Completed [facility] 00:00:00 [facility] Influenza Virus 2005-05-19 Completed [facility] Vaccine 00:00:00 [facility] HEPATITIS A 2005-05-19 Completed [facility] 00:00:00 [facility] Influenza Virus 2005-05-19 Completed [facility] Vaccine 00:00:00 [facility] HEPATITIS A 2005-05-19 Completed [facility] 00:00:00 [facility] Influenza Virus 2005-05-19 Completed [facility] Vaccine 00:00:00 [facility] HEPATITIS A 2005-05-19 Completed [facility] 00:00:00 [facility] Influenza Virus 2005-05-19 Completed [facility] Vaccine 00:00:00 [facility] HEPATITIS A 2005-05-19 Completed [facility] 00:00:00 [facility] Influenza Virus 2005-05-19 Completed [facility] Vaccine 00:00:00 [facility] HEPATITIS A 2005-05-19 Completed [facility] 00:00:00 [facility] Influenza Virus 2005-05-19 Completed [facility] Vaccine 00:00:00 [facility] HEPATITIS A 2005-05-19 Completed [facility] 00:00:00 [facility] Influenza Virus 2005-05-19 Completed [facility] Vaccine 00:00:00 [facility] HEPATITIS A 2005-05-19 Completed [facility] 00:00:00 [facility] Influenza Virus 2005-05-19 Completed [facility] Vaccine 00:00:00 [facility] HEPATITIS A 2005-05-19 Completed [facility] 00:00:00 [facility] Influenza Virus 2005-05-19 Completed [facility] Vaccine 00:00:00 [facility] HEPATITIS A 2005-05-19 Completed [facility] 00:00:00 [facility] Influenza Virus 2005-05-19 Completed [facility] Vaccine 00:00:00 [facility] HEPATITIS A 2005-05-19 Completed [facility] 00:00:00 [facility] Influenza Virus 2005-05-19 Completed [facility] Vaccine 00:00:00 [facility] HEPATITIS A 2005-05-19 Completed [facility] 00:00:00 [facility] Influenza Virus 2005-05-19 Completed [facility] Vaccine 00:00:00 [facility] HEPATITIS A 2005-05-19 Completed [facility] 00:00:00 [facility] Influenza Virus 2005-05-19 Completed [facility] Vaccine 00:00:00 [facility] HEPATITIS A 2005-05-19 Completed [facility] 00:00:00 [facility] Influenza Virus 2005-05-19 Completed [facility] Vaccine 00:00:00 [facility] HEPATITIS A 2005-05-19 Completed [facility] 00:00:00 [facility] Influenza Virus 2005-05-19 Completed [facility] Vaccine 00:00:00 [facility] HEPATITIS A 2005-05-19 Completed [facility] 00:00:00 [facility] Influenza Virus 2005-05-19 Completed [facility] Vaccine 00:00:00 [facility] HEPATITIS A 2005-05-19 Completed [facility] 00:00:00 [facility] Influenza Virus 2005-05-19 Completed [facility] Vaccine 00:00:00 [facility] HEPATITIS A 2005-05-19 Completed [facility] 00:00:00 [facility] Influenza Virus 2005-05-19 Completed [facility] Vaccine 00:00:00 [facility] HEPATITIS A 2005-05-19 Completed [facility] 00:00:00 [facility] Influenza Virus 2005-05-19 Completed [facility] Vaccine 00:00:00 [facility] HEPATITIS A 2005-05-19 Completed [facility] 00:00:00 [facility] Influenza Virus 2005-05-19 Completed [facility] Vaccine 00:00:00 [facility] HEPATITIS A 2005-05-19 Completed [facility] 00:00:00 [facility] Influenza Virus 2005-05-19 Completed [facility] Vaccine 00:00:00 [facility] HEPATITIS A 2005-05-19 Completed [facility] 00:00:00 [facility] Influenza Virus 2005-05-19 Completed [facility] Vaccine 00:00:00 [facility] HEPATITIS A 2004-05-17 Completed [facility] 00:00:00 [facility] HEPATITIS A 2004-05-17 Completed [facility] 00:00:00 [facility] HEPATITIS A 2004-05-17 Completed [facility] 00:00:00 [facility] HEPATITIS A 2004-05-17 Completed [facility] 00:00:00 [facility] HEPATITIS A 2004-05-17 Completed [facility] 00:00:00 [facility] HEPATITIS A 2004-05-17 Completed [facility] 00:00:00 [facility] HEPATITIS A 2004-05-17 Completed [facility] 00:00:00 [facility] HEPATITIS A 2004-05-17 Completed [facility] 00:00:00 [facility] HEPATITIS A 2004-05-17 Completed [facility] 00:00:00 [facility] HEPATITIS A 2004-05-17 Completed [facility] 00:00:00 [facility] HEPATITIS A 2004-05-17 Completed [facility] 00:00:00 [facility] HEPATITIS A 2004-05-17 Completed [facility] 00:00:00 [facility] HEPATITIS A 2004-05-17 Completed [facility] 00:00:00 [facility] HEPATITIS A 2004-05-17 Completed [facility] 00:00:00 [facility] HEPATITIS A 2004-05-17 Completed [facility] 00:00:00 [facility] HEPATITIS A 2004-05-17 Completed [facility] 00:00:00 [facility] HEPATITIS A 2004-05-17 Completed [facility] 00:00:00 [facility] HEPATITIS A 2004-05-17 Completed [facility] 00:00:00 [facility] HEPATITIS A 2004-05-17 Completed [facility] 00:00:00 [facility] HEPATITIS A 2004-05-17 Completed [facility] 00:00:00 [facility] HEPATITIS A 2004-05-17 Completed [facility] 00:00:00 [facility] HEPATITIS A 2004-05-17 Completed [facility] 00:00:00 [facility] HEPATITIS A 2004-05-17 Completed [facility] 00:00:00 [facility] HEPATITIS A 2004-05-17 Completed [facility] 00:00:00 [facility] HEPATITIS A 2004-05-17 Completed [facility] 00:00:00 [facility] HEPATITIS A 2004-05-17 Completed [facility] 00:00:00 [facility] HEPATITIS A 2004-05-17 Completed [facility] 00:00:00 [facility] HEPATITIS A 2004-05-17 Completed [facility] 00:00:00 [facility] HEPATITIS A 2004-05-17 Completed [facility] 00:00:00 [facility] HEPATITIS A 2004-05-17 Completed [facility] 00:00:00 [facility] HEPATITIS A 2004-05-17 Completed [facility] 00:00:00 [facility] HEPATITIS A 2004-05-17 Completed [facility] 00:00:00 [facility] HEPATITIS A 2004-05-17 Completed [facility] 00:00:00 [facility] HEPATITIS A 2004-05-17 Completed [facility] 00:00:00 [facility] HEPATITIS A 2004-05-17 Completed [facility] 00:00:00 [facility] HEPATITIS A 2004-05-17 Completed [facility] 00:00:00 [facility] HEPATITIS A 2004-05-17 Completed [facility] 00:00:00 [facility] HEPATITIS A 2004-05-17 Completed [facility] 00:00:00 [facility] HEPATITIS A 2004-05-17 Completed [facility] 00:00:00 [facility] HEPATITIS A 2004-05-17 Completed [facility] 00:00:00 [facility] HEPATITIS A 2004-05-17 Completed [facility] 00:00:00 [facility] HEPATITIS A 2004-05-17 Completed [facility] 00:00:00 [facility] HEPATITIS A 2004-05-17 Completed [facility] 00:00:00 [facility] HEPATITIS A 2004-05-17 Completed [facility] 00:00:00 [facility] HEPATITIS A 2004-05-17 Completed [facility] 00:00:00 [facility] HEPATITIS A 2004-05-17 Completed [facility] 00:00:00 [facility] HEPATITIS A 2004-05-17 Completed [facility] 00:00:00 [facility] HEPATITIS A 2004-05-17 Completed [facility] 00:00:00 [facility] HEPATITIS A 2004-05-17 Completed [facility] 00:00:00 [facility] HEPATITIS A 2004-05-17 Completed [facility] 00:00:00 [facility] HEPATITIS A 2004-05-17 Completed [facility] 00:00:00 [facility] HEPATITIS A 2004-05-17 Completed [facility] 00:00:00 [facility] HEPATITIS A 2004-05-17 Completed [facility] 00:00:00 [facility] HEPATITIS A 2004-05-17 Completed [facility] 00:00:00 [facility] HEPATITIS A 2004-05-17 Completed [facility] 00:00:00 [facility] HEPATITIS A 2004-05-17 Completed [facility] 00:00:00 [facility] HEPATITIS A 2004-05-17 Completed [facility] 00:00:00 [facility] HEPATITIS A 2004-05-17 Completed [facility] 00:00:00 [facility] HEPATITIS A 2004-05-17 Completed [facility] 00:00:00 [facility] HEPATITIS A 2004-05-17 Completed [facility] 00:00:00 [facility] HEPATITIS A 2004-05-17 Completed [facility] 00:00:00 [facility] HEPATITIS A 2004-05-17 Completed [facility] 00:00:00 [facility] HEPATITIS A 2004-05-17 Completed [facility] 00:00:00 [facility] HEPATITIS A 2004-05-17 Completed [facility] 00:00:00 [facility] HEPATITIS A 2004-05-17 Completed [facility] 00:00:00 [facility] HEPATITIS A 2004-05-17 Completed [facility] 00:00:00 [facility] HEPATITIS A 2004-05-17 Completed [facility] 00:00:00 [facility] HEPATITIS A 2004-05-17 Completed [facility] 00:00:00 [facility] HEPATITIS A 2004-05-17 Completed [facility] 00:00:00 [facility] HEPATITIS A 2004-05-17 Completed [facility] 00:00:00 [facility] HEPATITIS A 2004-05-17 Completed [facility] 00:00:00 [facility] HEPATITIS A 2004-05-17 Completed [facility] 00:00:00 [facility] HEPATITIS A 2004-05-17 Completed [facility] 00:00:00 [facility] HEPATITIS A 2004-05-17 Completed [facility] 00:00:00 [facility] HEPATITIS A 2004-05-17 Completed [facility] 00:00:00 [facility] HEPATITIS A 2004-05-17 Completed [facility] 00:00:00 [facility] HEPATITIS A 2004-05-17 Completed [facility] 00:00:00 [facility] HEPATITIS A 2004-05-17 Completed [facility] 00:00:00 [facility] HEPATITIS A 2004-05-17 Completed [facility] 00:00:00 [facility] HEPATITIS A 2004-05-17 Completed [facility] 00:00:00 [facility] HEPATITIS A 2004-05-17 Completed [facility] 00:00:00 [facility] HEPATITIS A 2004-05-17 Completed [facility] 00:00:00 [facility] HEPATITIS A 2004-05-17 Completed [facility] 00:00:00 [facility] HEPATITIS A 2004-05-17 Completed [facility] 00:00:00 [facility] HEPATITIS A 2004-05-17 Completed [facility] 00:00:00 [facility] HEPATITIS A 2004-05-17 Completed [facility] 00:00:00 [facility] HEPATITIS A 2004-05-17 Completed [facility] 00:00:00 [facility] HEPATITIS A 2004-05-17 Completed [facility] 00:00:00 [facility] HEPATITIS A 2004-05-17 Completed [facility] 00:00:00 [facility] HEPATITIS A 2004-05-17 Completed [facility] 00:00:00 [facility] HEPATITIS A 2004-05-17 Completed [facility] 00:00:00 [facility] HEPATITIS A 2004-05-17 Completed [facility] 00:00:00 [facility] HEPATITIS A 2004-05-17 Completed [facility] 00:00:00 [facility] HEPATITIS A 2004-05-17 Completed [facility] 00:00:00 [facility] HEPATITIS A 2004-05-17 Completed [facility] 00:00:00 [facility] HEPATITIS A 2004-05-17 Completed [facility] 00:00:00 [facility] HEPATITIS A 2004-05-17 Completed [facility] 00:00:00 [facility] HEPATITIS A 2004-05-17 Completed [facility] 00:00:00 [facility] HEPATITIS A 2004-05-17 Completed [facility] 00:00:00 [facility] HEPATITIS A 2004-05-17 Completed [facility] 00:00:00 [facility] HEPATITIS A 2004-05-17 Completed [facility] 00:00:00 [facility] HEPATITIS A 2004-05-17 Completed [facility] 00:00:00 [facility] HEPATITIS A 2004-05-17 Completed [facility] 00:00:00 [facility] HEPATITIS A 2004-05-17 Completed [facility] 00:00:00 [facility] HEPATITIS A 2004-05-17 Completed [facility] 00:00:00 [facility] Polio (IPV/OPV) 2003-08-21 Completed [facility] 00:00:00 [facility] Polio (IPV/OPV) 2003-08-21 Completed [facility] 00:00:00 [facility] Polio (IPV/OPV) 2003-08-21 Completed [facility] 00:00:00 [facility] Polio (IPV/OPV) 2003-08-21 Completed [facility] 00:00:00 [facility] Polio (IPV/OPV) 2003-08-21 Completed [facility] 00:00:00 [facility] Polio (IPV/OPV) 2003-08-21 Completed [facility] 00:00:00 [facility] Polio (IPV/OPV) 2003-08-21 Completed [facility] 00:00:00 [facility] Polio (IPV/OPV) 2003-08-21 Completed [facility] 00:00:00 [facility] Polio (IPV/OPV) 2003-08-21 Completed [facility] 00:00:00 [facility] Polio (IPV/OPV) 2003-08-21 Completed [facility] 00:00:00 [facility] Polio (IPV/OPV) 2003-08-21 Completed [facility] 00:00:00 [facility] Polio (IPV/OPV) 2003-08-21 Completed [facility] 00:00:00 [facility] Polio (IPV/OPV) 2003-08-21 Completed [facility] 00:00:00 [facility] Polio (IPV/OPV) 2003-08-21 Completed [facility] 00:00:00 [facility] Polio (IPV/OPV) 2003-08-21 Completed [facility] 00[facility]00:00 [facility] Polio (IPV/OPV) 2003-08-21 Completed [facility] 00:00:00 [facility] Polio (IPV/OPV) 2003-08-21 Completed [facility] [...] (IPV/OPV) 2003-08-21 Completed [facility] 00:00:00 [facility] Polio (IPV/OPV) 2003-08-21 Completed [facility] [...] (IPV/OPV) 2003-08-21 Completed [facility] 00:00:00 [facility] Polio (IPV/OPV) 2003-08-21 Completed [facility] 00:00:00 [facility] Polio (IPV/OPV) 2003-08-21 Completed [facility] 00:00:00 [facility] Polio (IPV/OPV) 2003-08-21 Completed [facility] 00:00:00 [facility] Polio (IPV/OPV) 2003-08-21 Completed [facility] 00:00:00 [facility] Polio (IPV/OPV) 2003-08-21 Completed [facility] 00:00:00 [facility] Polio (IPV/OPV) 2003-08-21 Completed [facility] 00:00:00 [facility] Polio (IPV/OPV) 2003-08-21 Completed [facility] 00:00:00 [facility] Polio (IPV/OPV) 2003-08-21 Completed [facility] 00:00:00 [facility] Polio (IPV/OPV) 2003-08-21 Completed [facility] 00:00:00 [facility] Polio (IPV/OPV) 2003-08-21 Completed [facility] 00:00:00 [facility] Polio (IPV/OPV) 2003-08-21 Completed [facility] 00:00:00 [facility] Polio (IPV/OPV) 2003-08-21 Completed [facility]00 [facility] Polio (IPV/OPV) 2003-08-21 Completed [facility] 00[facility]00 [facility] Polio (IPV/OPV) 2003-08-21 Completed [facility] 00:00:00 [facility] Polio (IPV/OPV) 2003-08-21 Completed [facility] 00:00:00 [facility] HIB 4 Dose Schedule 2003-05-22 Completed [facility] 00:00:00 [facility] MMR 2003-05-22 Completed [facility] 00:00:00 [facility] Pneumococcal 7 2003-05-22 Completed [facility] Conjugate, PCV7 00:00:00 [facility] (Prevnar7) [facility] Varicella 2003-05-22 Completed [facility] of (varivax)(chicken 00:00:00 [facility] [place] edical pox) Branch HIB 4 Dose Schedule 2003-05-22 Completed [facility] 00:00:00 [facility] MMR 2003-05-22 Completed [facility] 00:00:00 [facility] Pneumococcal 7 2003-05-22 Completed [facility] Conjugate, PCV7 00:00:00 [facility] (Prevnar7) [facility] Varicella 2003-05-22 Completed [facility] (varivax)(chicken 00:00:00 [facility] [place] edical pox) Branch HIB 4 Dose Schedule 2003-05-22 Completed [facility] 00:00:00 [facility] MMR 2003-05-22 Completed [facility] 00:00:00 [facility] Pneumococcal 7 2003-05-22 Completed [facility] Conjugate, PCV7 00:00:00 [facility] (Prevnar7) [facility] Varicella 2003-05-22 Completed [facility] (varivax)(chicken 00:00:00 [facility] [place] edical pox) Branch HIB 4 Dose Schedule 2003-05-22 Completed [facility] 00:00:00 [facility] MMR 2003-05-22 Completed [facility] 00:00:00 [facility] Pneumococcal 7 2003-05-22 Completed [facility] Conjugate, PCV7 00:00:00 [facility] (Prevnar7) [facility] Varicella 2003-05-22 Completed [facility] (varivax)(chicken 00:00:00 [facility] [place] ed[facility] pox) Branch HIB 4 Dose Schedule 2003-05-22 Completed [facility] 00:00:00 [facility] MMR 2003-05-22 Completed [facility] 00:00:00 [facility] Pneumococcal 7 2003-05-22 Completed [facility] Conjugate, PCV7 00:00:00 [facility] (Prevnar7) [facility] Varicella 2003-05-22 Completed [facility] (varivax)(chicken 00:00:00 [place] [facility] pox) [facility] HIB 4 Dose Schedule 2003-05-22 Completed [facility] 00:00:00 [facility] MMR 2003-05-22 Completed [facility] 00:00:00 [facility] Pneumococcal 7 2003-05-22 Completed [facility] Conjugate, PCV7 00:00:00 [facility] (Prevnar7) [facility] Varicella 2003-05-22 Completed [facility] (varivax)(chicken 00:00:00 [place] [facility] pox) [facility] HIB 4 Dose Schedule 2003-05-22 Completed [facility] 00:00:00 [facility] MMR 2003-05-22 Completed [facility] 00:00:00 [facility] Pneumococcal 7 2003-05-22 Completed [facility] Conjugate, PCV7 00:00:00 [facility] (Prevnar7) [facility] Varicella 2003-05-22 Completed [facility] (varivax)(chicken 00:00:00 [facility] [place] ed[facility] pox) Branch HIB 4 Dose Schedule 2003-05-22 Completed [facility] 00:00:00 [facility] MMR 2003-05-22 Completed [facility] 00:00:00 [facility] Pneumococcal 7 2003-05-22 Completed [facility] Conjugate, PCV7 00:00:00 [facility] (Prevnar7) [facility] Varicella 2003-05-22 Completed [facility] (varivax)(chicken 00:00:00 [place] [facility] pox) [facility] HIB 4 Dose Schedule 2003-05-22 Completed [facility] 00:00:00 [facility] MMR 2003-05-22 Completed [facility] 00:00:00 [facility] Pneumococcal 7 2003-05-22 Completed [facility] Conjugate, PCV7 00:00:00 [facility] (Prevnar7) [facility] Varicella 2003-05-22 Completed [facility] (varivax)(chicken 00:00:00 [place] [facility] pox) [facility] HIB 4 Dose Schedule 2003-05-22 Completed [facility] 00:00:00 [facility] MMR 2003-05-22 Completed [facility] 00:00:00 [facility] Pneumococcal 7 2003-05-22 Completed [facility] Conjugate, PCV7 00:00:00 [place] [facility] (Prevnar7) [facility] Varicella 2003-05-22 Completed [facility] (varivax)(chicken 00:00:00 [place] [facility] pox) [facility] HIB 4 Dose Schedule 2003-05-22 Completed [facility] 00:00:00 [facility] MMR 2003-05-22 Completed [facility] 00:00:00 [facility] Pneumococcal 7 2003-05-22 Completed [facility] Conjugate, PCV7 00:00:00 [place] [facility] (Prevnar7) [facility] Varicella 2003-05-22 Completed [facility] (varivax)(chicken 00:00:00 [place] [facility] pox) [facility] HIB 4 Dose Schedule 2003-05-22 Completed [facility] 00:00:00 [facility] MMR 2003-05-22 Completed [facility] 00:00:00 [facility] Pneumococcal 7 2003-05-22 Completed [facility] Conjugate, PCV7 00:00:00 [place] [facility] (Prevnar7) [facility] Varicella 2003-05-22 Completed [facility] (varivax)(chicken 00:00:00 [place] [facility] pox) [facility] HIB 4 Dose Schedule 2003-05-22 Completed [facility] 00:00:00 [facility] MMR 2003-05-22 Completed [facility] 00:00:00 [facility] Pneumococcal 7 2003-05-22 Completed [facility] Conjugate, PCV7 00:00:00 [place] [facility] (Prevnar7) [facility] Varicella 2003-05-22 Completed [facility] (varivax)(chicken 00:00:00 [place] [facility] pox) [facility] HIB 4 Dose Schedule 2003-05-22 Completed [facility] 00:00:00 [facility] MMR 2003-05-22 Completed [facility] 00:00:00 [facility] Pneumococcal 7 2003-05-22 Completed [facility] Conjugate, PCV7 00:00:00 [place] [facility] (Prevnar7) [facility] Varicella 2003-05-22 Completed [facility] (varivax)(chicken 00:00:00 [place] [facility] pox) [facility] HIB 4 Dose Schedule 2003-05-22 Completed [facility] 00:00:00 [facility] MMR 2003-05-22 Completed [facility] 00:00:00 [facility] Pneumococcal 7 2003-05-22 Completed [facility] Conjugate, PCV7 00:00:00 [place] [facility] (Prevnar7) [facility] Varicella 2003-05-22 Completed [facility] (varivax)(chicken 00:00:00 [place] [facility] pox) [facility] HIB 4 Dose Schedule 2003-05-22 Completed [facility] 00:00:00 [facility] MMR 2003-05-22 Completed [facility] 00:00:00 [facility] Pneumococcal 7 2003-05-22 Completed [facility] Conjugate, PCV7 00:00:00 [place] [facility] (Prevnar7) [facility] Varicella 2003-05-22 Completed [facility] (varivax)(chicken 00:00:00 [place] [facility] pox) [facility] HIB 4 Dose Schedule 2003-05-22 Completed [facility] 00:00:00 [facility] MMR 2003-05-22 Completed [facility] 00:00:00 [facility] Pneumococcal 7 2003-05-22 Completed [facility] Conjugate, PCV7 00:00:00 [facility] (Prevnar7) [facility] Varicella 2003-05-22 Completed [facility] (varivax)(chicken 00:00:00 [place] [facility] pox) [facility] HIB 4 Dose Schedule 2003-05-22 Completed [facility] 00:00:00 [facility] MMR 2003-05-22 Completed [facility] 00:00:00 [facility] Pneumococcal 7 2003-05-22 Completed [facility] Conjugate, PCV7 00:00:00 [facility] (Prevnar7) [facility] Varicella 2003-05-22 Completed [facility] (varivax)(chicken 00:00:00 [place] [facility] pox) [facility] HIB 4 Dose Schedule 2003-05-22 Completed [facility] 00:00:00 [facility] MMR 2003-05-22 Completed [facility] 00:00:00 [facility] Pneumococcal 7 2003-05-22 Completed [facility] Conjugate, PCV7 00:00:00 [facility] (Prevnar7) [facility] Varicella 2003-05-22 Completed [facility] (varivax)(chicken 00:00:00 [place] [facility] pox) [facility] HIB 4 Dose Schedule 2003-05-22 Completed [facility] 00:00:00 [facility] MMR 2003-05-22 Completed [facility] 00:00:00 [facility] Pneumococcal 7 2003-05-22 Completed [facility] Conjugate, PCV7 00:00:00 [place] [facility] (Prevnar7) [facility] Varicella 2003-05-22 Completed [facility] (varivax)(chicken 00:00:00 [place] [facility] pox) [facility] HIB 4 Dose Schedule 2003-05-22 Completed [facility] 00:00:00 [facility] MMR 2003-05-22 Completed [facility] 00:00:00 [facility] Pneumococcal 7 2003-05-22 Completed [facility] Conjugate, PCV7 00:00:00 [facility] (Prevnar7) [facility] Varicella 2003-05-22 Completed [facility] (varivax)(chicken 00:00:00 [place] [facility] pox) [facility] HIB 4 Dose Schedule 2003-05-22 Completed [facility] 00:00:00 [facility] MMR 2003-05-22 Completed [facility] 00:00:00 [facility] Pneumococcal 7 2003-05-22 Completed [facility] Conjugate, PCV7 00:00:00 [facility] (Prevnar7) [facility] Varicella 2003-05-22 Completed [facility] (varivax)(chicken 00:00:00 [place] [facility] pox) [facility] HIB 4 Dose Schedule 2003-05-22 Completed [facility] 00:00:00 [facility] MMR 2003-05-22 Completed [facility] 00:00:00 [facility] Pneumococcal 7 2003-05-22 Completed [facility] Conjugate, PCV7 00:00:00 [facility] (Prevnar7) [facility] Varicella 2003-05-22 Completed [facility] (varivax)(chicken 00:00:00 [place] [facility] pox) [facility] HIB 4 Dose Schedule 2003-05-22 Completed [facility] 00:00:00 [facility] MMR 2003-05-22 Completed [facility] 00:00:00 [facility] Pneumococcal 7 2003-05-22 Completed [facility] Conjugate, PCV7 00:00:00 [facility] (Prevnar7) [facility] Varicella 2003-05-22 Completed [facility] (varivax)(chicken 00:00:00 [place] [facility] pox) [facility] HIB 4 Dose Schedule 2003-05-22 Completed [facility] 00:00:00 [facility] MMR 2003-05-22 Completed [facility] 00:00:00 [facility] Pneumococcal 7 2003-05-22 Completed [facility] Conjugate, PCV7 00:00:00 [place] [facility] (Prevnar7) [facility] Varicella 2003-05-22 Completed [facility] (varivax)(chicken 00:00:00 [place] [facility] pox) [facility] HIB 4 Dose Schedule 2003-05-22 Completed [facility] 00:00:00 [facility] MMR 2003-05-22 Completed [facility] 00:00:00 [facility] Pneumococcal 7 2003-05-22 Completed [facility] Conjugate, PCV7 00:00:00 [place] [facility] (Prevnar7) [facility] Varicella 2003-05-22 Completed [facility] (varivax)(chicken 00:00:00 [place] [facility] pox) [facility] HIB 4 Dose Schedule 2003-05-22 Completed [facility] 00:00:00 [facility] MMR 2003-05-22 Completed [facility] 00:00:00 [facility] Pneumococcal 7 2003-05-22 Completed [facility] Conjugate, PCV7 00:00:00 [place] [facility] (Prevnar7) [facility] Varicella 2003-05-22 Completed [facility] (varivax)(chicken 00:00:00 [facility] [place] ed[facility] pox) Branch HIB 4 Dose Schedule 2003-05-22 Completed [facility] 00:00:00 [facility] MMR 2003-05-22 Completed [facility] 00:00:00 [facility] Pneumococcal 7 2003-05-22 Completed [facility] Conjugate, PCV7 00:00:00 [place] [facility] (Prevnar7) [facility] Varicella 2003-05-22 Completed [facility] (varivax)(chicken 00:00:00 [facility] [place] ed[facility] pox) Branch HIB 4 Dose Schedule 2003-05-22 Completed [facility] 00:00:00 [facility] MMR 2003-05-22 Completed [facility] 00:00:00 [facility] Pneumococcal 7 2003-05-22 Completed [facility] Conjugate, PCV7 00:00:00 [place] [facility] (Prevnar7) [facility] Varicella 2003-05-22 Completed [facility] (varivax)(chicken 00:00:00 [facility] [place] [facility] pox) Branch HIB 4 Dose Schedule 2003-05-22 Completed [facility] 00:00:00 [facility] MMR 2003-05-22 Completed [facility] 00:00:00 [facility] Pneumococcal 7 2003-05-22 Completed [facility] Conjugate, PCV7 00:00:00 [facility] (Prevnar7) [facility] Varicella 2003-05-22 Completed [facility] (varivax)(chicken 00:00:00 [place] [facility] pox) [facility] HIB 4 Dose Schedule 2003-05-22 Completed [facility] 00:00:00 [facility] MMR 2003-05-22 Completed [facility] 00:00:00 [facility] Pneumococcal 7 2003-05-22 Completed [facility] Conjugate, PCV7 00:00:00 [facility] (Prevnar7) [facility] Varicella 2003-05-22 Completed [facility] (varivax)(chicken 00:00:00 [place] [facility] pox) [facility] HIB 4 Dose Schedule 2003-05-22 Completed [facility] 00:00:00 [facility] MMR 2003-05-22 Completed [facility] 00:00:00 [facility] Pneumococcal 7 2003-05-22 Completed [facility] Conjugate, PCV7 00:00:00 [place] [facility] (Prevnar7) [facility] Varicella 2003-05-22 Completed [facility] (varivax)(chicken 00:00:00 [place] [facility] pox) Branch HIB 4 Dose Schedule 2003-05-22 Completed [facility] 00:00:00 [facility] MMR 2003-05-22 Completed [facility] 00:00:00 [facility] Pneumococcal 7 2003-05-22 Completed [facility] Conjugate, PCV7 00:00:00 [facility] (Prevnar7) [facility] Varicella 2003-05-22 Completed [facility] (varivax)(chicken 00:00:00 [place] [facility] pox) Branch HIB 4 Dose Schedule 2003-05-22 Completed [facility] 00:00:00 [facility] MMR 2003-05-22 Completed [facility] 00:00:00 [facility] Pneumococcal 7 2003-05-22 Completed [facility] Conjugate, PCV7 00:00:00 [place] [facility] (Prevnar7) [facility] Varicella 2003-05-22 Completed [facility] (varivax)(chicken 00:00:00 [place] [facility] pox) [facility] HIB 4 Dose Schedule 2003-05-22 Completed [facility] 00:00:00 [facility] MMR 2003-05-22 Completed [facility] 00:00:00 [facility] Pneumococcal 7 2003-05-22 Completed [facility] Conjugate, PCV7 00:00:00 [facility] (Prevnar7) [facility] Varicella 2003-05-22 Completed [facility] (varivax)(chicken 00:00:00 [place] [facility] pox) Branch HIB 4 Dose Schedule 2003-05-22 Completed [facility] 00:00:00 [facility] MMR 2003-05-22 Completed [facility] 00:00:00 [facility] Pneumococcal 7 2003-05-22 Completed [facility] Conjugate, PCV7 00:00:00 [place] [facility] (Prevnar7) [facility] Varicella 2003-05-22 Completed [facility] (varivax)(chicken 00:00:00 [facility] [place] [facility] pox) Branch HIB 4 Dose Schedule 2003-05-22 Completed [facility] 00:00:00 [facility] MMR 2003-05-22 Completed [facility] 00:00:00 [facility] Pneumococcal 7 2003-05-22 Completed [facility] Conjugate, PCV7 00:00:00 [place] [facility] (Prevnar7) [facility] Varicella 2003-05-22 Completed [facility] (varivax)(chicken 00:00:00 [facility] [place] [facility] pox) Branch HIB 4 Dose Schedule 2003-05-22 Completed [facility] 00:00:00 [facility] MMR 2003-05-22 Completed [facility] 00:00:00 [facility] Pneumococcal 7 2003-05-22 Completed [facility] Conjugate, PCV7 00:00:00 [place] [facility] (Prevnar7) [facility] Varicella 2003-05-22 Completed [facility] (varivax)(chicken 00:00:00 [facility] [place] ed[facility] pox) Branch HIB 4 Dose Schedule 2003-05-22 Completed [facility] 00:00:00 [facility] MMR 2003-05-22 Completed [facility] 00:00:00 [facility] Pneumococcal 7 2003-05-22 Completed [facility] Conjugate, PCV7 00:00:00 [place] [facility] (Prevnar7) [facility] Varicella 2003-05-22 Completed [facility] (varivax)(chicken 00:00:00 [facility] [place] [facility] pox) Branch HIB 4 Dose Schedule 2003-05-22 Completed [facility] 00:00:00 [facility] MMR 2003-05-22 Completed [facility] 00:00:00 [facility] Pneumococcal 7 2003-05-22 Completed [facility] Conjugate, PCV7 00:00:00 [place] [facility] (Prevnar7) [facility] Varicella 2003-05-22 Completed [facility] (varivax)(chicken 00:00:00 [facility] [place] [facility] pox) Branch HIB 4 Dose Schedule 2003-05-22 Completed [facility] 00:00:00 [facility] MMR 2003-05-22 Completed [facility] 00:00:00 [facility] Pneumococcal 7 2003-05-22 Completed [facility] Conjugate, PCV7 00:00:00 [place] [facility] (Prevnar7) [facility] Varicella 2003-05-22 Completed [facility] (varivax)(chicken 00:00:00 [place] [facility] pox) [facility] HIB 4 Dose Schedule 2003-05-22 Completed [facility] 00:00:00 [facility] MMR 2003-05-22 Completed [facility] 00:00:00 [facility] Pneumococcal 7 2003-05-22 Completed [facility] Conjugate, PCV7 00:00:00 [place] [facility] (Prevnar7) Branch Varicella 2003-05-22 Completed [facility] (varivax)(chicken 00:00:00 [place] [facility] pox) Branch HIB 4 Dose Schedule 2003-05-22 Completed [facility] 00:00:00 [facility] MMR 2003-05-22 Completed [facility] 00:00:00 [facility] Pneumococcal 7 2003-05-22 Completed [facility] Conjugate, PCV7 00:00:00 [place] [facility] (Prevnar7) Branch Varicella 2003-05-22 Completed [facility] (varivax)(chicken 00:00:00 [place] [facility] pox) Branch HIB 4 Dose Schedule 2003-05-22 Completed [facility] 00:00:00 [facility] MMR 2003-05-22 Completed [facility] 00:00:00 [facility] Pneumococcal 7 2003-05-22 Completed [facility] Conjugate, PCV7 00:00:00 [facility] (Prevnar7) [facility] Varicella 2003-05-22 Completed [facility] (varivax)(chicken 00:00:00 [place] [facility] pox) Branch HIB 4 Dose Schedule 2003-05-22 Completed [facility] 00:00:00 [facility] MMR 2003-05-22 Completed [facility] 00:00:00 [facility] Pneumococcal 7 2003-05-22 Completed [facility] Conjugate, PCV7 00:00:00 [place] [facility] (Prevnar7) [facility] Varicella 2003-05-22 Completed [facility] (varivax)(chicken 00:00:00 [facility] [place] [facility] pox) Branch HIB 4 Dose Schedule 2003-05-22 Completed [facility] 00:00:00 [facility] MMR 2003-05-22 Completed [facility] 00:00:00 [facility] Pneumococcal 7 2003-05-22 Completed [facility] Conjugate, PCV7 00:00:00 [place] [facility] (Prevnar7) [facility] Varicella 2003-05-22 Completed [facility] (varivax)(chicken 00:00:00 [place] [facility] pox) [facility] HIB 4 Dose Schedule 2003-05-22 Completed [facility] 00:00:00 [facility] MMR 2003-05-22 Completed [facility] 00:00:00 [facility] Pneumococcal 7 2003-05-22 Completed [facility] Conjugate, PCV7 00:00:00 [place] [facility] (Prevnar7) [facility] Varicella 2003-05-22 Completed [facility] (varivax)(chicken 00:00:00 [place] [facility] pox) [facility] HIB 4 Dose Schedule 2003-05-22 Completed [facility] 00:00:00 [facility] MMR 2003-05-22 Completed [facility] 00:00:00 [facility] Pneumococcal 7 2003-05-22 Completed [facility] Conjugate, PCV7 00:00:00 [place] [facility] (Prevnar7) [facility] Varicella 2003-05-22 Completed [facility] (varivax)(chicken 00:00:00 [facility] [place] [facility] pox) Branch HIB 4 Dose Schedule 2003-05-22 Completed [facility] 00:00:00 [facility] MMR 2003-05-22 Completed [facility] 00:00:00 [facility] Pneumococcal 7 2003-05-22 Completed [facility] Conjugate, PCV7 00:00:00 [place] [facility] (Prevnar7) [facility] Varicella 2003-05-22 Completed [facility] (varivax)(chicken 00:00:00 [place] [facility] pox) [facility] HIB 4 Dose Schedule 2003-05-22 Completed [facility] 00:00:00 [facility] MMR 2003-05-22 Completed [facility] 00:00:00 [facility] Pneumococcal 7 2003-05-22 Completed [facility] Conjugate, PCV7 00:00:00 [place] [facility] (Prevnar7) [facility] Varicella 2003-05-22 Completed [facility] (varivax)(chicken 00:00:00 [facility] [place] [facility] pox) Branch HIB 4 Dose Schedule 2003-05-22 Completed [facility] 00:00:00 [facility] MMR 2003-05-22 Completed [facility] 00:00:00 [facility] Pneumococcal 7 2003-05-22 Completed [facility] Conjugate, PCV7 00:00:00 [place] [facility] (Prevnar7) [facility] Varicella 2003-05-22 Completed [facility] (varivax)(chicken 00:00:00 [place] [facility] pox) [facility] HIB 4 Dose Schedule 2003-05-22 Completed [facility] 00:00:00 [facility] MMR 2003-05-22 Completed [facility] 00:00:00 [facility] Pneumococcal 7 2003-05-22 Completed [facility] Conjugate, PCV7 00:00:00 [place] [facility] (Prevnar7) [facility] Varicella 2003-05-22 Completed [facility] (varivax)(chicken 00:00:00 [place] [facility] pox) [facility] HIB 4 Dose Schedule 2003-05-22 Completed [facility] 00:00:00 [facility] MMR 2003-05-22 Completed [facility] 00:00:00 [facility] Pneumococcal 7 2003-05-22 Completed [facility] Conjugate, PCV7 00:00:00 [place] [facility] (Prevnar7) [facility] Varicella 2003-05-22 Completed [facility] (varivax)(chicken 00:00:00 [place] [facility] pox) [facility] HIB 4 Dose Schedule 2003-05-22 Completed [facility] 00:00:00 [facility] MMR 2003-05-22 Completed [facility] 00:00:00 [facility] Pneumococcal 7 2003-05-22 Completed [facility] Conjugate, PCV7 00:00:00 [place] [facility] (Prevnar7) [facility] Varicella 2003-05-22 Completed [facility] (varivax)(chicken 00:00:00 [place] [facility] pox) [facility] HIB 4 Dose Schedule 2003-05-22 Completed [facility] 00:00:00 [facility] MMR 2003-05-22 Completed [facility] 00:00:00 [facility] Pneumococcal 7 2003-05-22 Completed [facility] Conjugate, PCV7 00:00:00 [place] [facility] (Prevnar7) [facility] Varicella 2003-05-22 Completed [facility] (varivax)(chicken 00:00:00 [place] [facility] pox) [facility] HIB 4 Dose Schedule 2003-05-22 Completed [facility] 00:00:00 [facility] MMR 2003-05-22 Completed [facility] 00:00:00 [facility] Pneumococcal 7 2003-05-22 Completed [facility] Conjugate, PCV7 00:00:00 [place] [facility] (Prevnar7) [facility] Varicella 2003-05-22 Completed [facility] (varivax)(chicken 00:00:00 [place] [facility] pox) [facility] HIB 4 Dose Schedule 2003-05-22 Completed [facility] 00:00:00 [facility] MMR 2003-05-22 Completed [facility] 00:00:00 [facility] Pneumococcal 7 2003-05-22 Completed [facility] Conjugate, PCV7 00:00:00 [place] [facility] (Prevnar7) [facility] Varicella 2003-05-22 Completed [facility] (varivax)(chicken 00:00:00 [place] [facility] pox) [facility] HIB 4 Dose Schedule 2003-05-22 Completed [facility] 00:00:00 [facility] MMR 2003-05-22 Completed [facility] 00:00:00 [facility] Pneumococcal 7 2003-05-22 Completed [facility] Conjugate, PCV7 00:00:00 [place] [facility] (Prevnar7) [facility] Varicella 2003-05-22 Completed [facility] (varivax)(chicken 00:00:00 [facility] [place] [facility] pox) Branch HIB 4 Dose Schedule 2003-05-22 Completed [facility] 00:00:00 [facility] MMR 2003-05-22 Completed [facility] 00:00:00 [facility] Pneumococcal 7 2003-05-22 Completed [facility] Conjugate, PCV7 00:00:00 [place] [facility] (Prevnar7) [facility] Varicella 2003-05-22 Completed [facility] (varivax)(chicken 00:00:00 [facility] [place] [facility] pox) Branch HIB 4 Dose Schedule 2003-05-22 Completed [facility] 00:00:00 [facility] MMR 2003-05-22 Completed [facility] 00:00:00 [facility] Pneumococcal 7 2003-05-22 Completed [facility] Conjugate, PCV7 00:00:00 [place] [facility] (Prevnar7) [facility] Varicella 2003-05-22 Completed [facility] (varivax)(chicken 00:00:00 [place] [facility] pox) [facility] HIB 4 Dose Schedule 2003-05-22 Completed [facility] 00:00:00 [facility] MMR 2003-05-22 Completed [facility] 00:00:00 [facility] Pneumococcal 7 2003-05-22 Completed [facility] Conjugate, PCV7 00:00:00 [place] [facility] (Prevnar7) [facility] Varicella 2003-05-22 Completed [facility] (varivax)(chicken 00:00:00 [place] [facility] pox) [facility] HIB 4 Dose Schedule 2003-05-22 Completed [facility] 00:00:00 [facility] MMR 2003-05-22 Completed [facility] 00:00:00 [facility] Pneumococcal 7 2003-05-22 Completed [facility] Conjugate, PCV7 00:00:00 [place] [facility] (Prevnar7) [facility] Varicella 2003-05-22 Completed [facility] (varivax)(chicken 00:00:00 [place] [facility] pox[facility] HIB 4 Dose Schedule 2003-05-22 Completed [facility] 00:00:00 [facility] MMR 2003-05-22 Completed [facility] 00:00:00 [facility] Pneumococcal 7 2003-05-22 Completed [facility] Conjugate, PCV7 00:00:00 [place] [facility] (Prevnar7) [facility] Varicella 2003-05-22 Completed [facility] (varivax)(chicken 00:00:00 [place] [facility] pox) [facility] HIB 4 Dose Schedule 2003-05-22 Completed [facility] 00:00:00 [facility] MMR 2003-05-22 Completed [facility] 00:00:00 [facility] Pneumococcal 7 2003-05-22 Completed [facility] Conjugate, PCV7 00:00:00 [place] [facility] (Prevnar7) [facility] Varicella 2003-05-22 Completed [facility] (varivax)(chicken 00:00:00 [place] [facility] pox) [facility] HIB 4 Dose Schedule 2003-05-22 Completed [facility] 00:00:00 [facility] MMR 2003-05-22 Completed [facility] 00:00:00 [facility] Pneumococcal 7 2003-05-22 Completed [facility] Conjugate, PCV7 00:00:00 [place] [facility] (Prevnar7) [facility] Varicella 2003-05-22 Completed [facility] (varivax)(chicken 00:00:00 [place] [facility] pox) [facility] HIB 4 Dose Schedule 2003-05-22 Completed [facility] of 00:00:00 [facility] MMR 2003-05-22 Completed [facility] 00:00:00 [facility] Pneumococcal 7 2003-05-22 Completed [facility] Conjugate, PCV7 00:00:00 [place] [facility] (Prevnar7) [facility] Varicella 2003-05-22 Completed [facility] (varivax)(chicken 00:00:00 [place] [facility] pox) [facility] HIB 4 Dose Schedule 2003-05-22 Completed [facility] 00:00:00 [facility] MMR 2003-05-22 Completed [facility] 00:00:00 [facility] Pneumococcal 7 2003-05-22 Completed [facility] Conjugate, PCV7 00:00:00 [place] [facility] (Prevnar7) [facility] Varicella 2003-05-22 Completed [facility] (varivax)(chicken 00:00:00 [facility] [place] ed[facility] pox) Branch HIB 4 Dose Schedule 2003-05-22 Completed [facility]ive [facility] of 00:00:00 [facility] MMR 2003-05-22 Completed [facility] 00:00:00 [facility] Pneumococcal 7 2003-05-22 Completed [facility] Conjugate, PCV7 00:00:00 [place] [facility] (Prevnar7) [facility] Varicella 2003-05-22 Completed [facility] (varivax)(chicken 00:00:00 [facility] [place] [facility] pox) Branch HIB 4 Dose Schedule 2003-05-22 Completed [facility]ive rs[facility] of 00:00:00 [facility] MMR 2003-05-22 Completed [facility] 00:00:00 [facility] Pneumococcal 7 2003-05-22 Completed [facility] Conjugate, PCV7 00:00:00 [place] [facility] (Prevnar7) [facility] Varicella 2003-05-22 Completed [facility] (varivax)(chicken 00:00:00 [facility] [place] [facility] pox) Branch HIB 4 Dose Schedule 2003-05-22 Completed [facility] of 00:00:00 [facility] MMR 2003-05-22 Completed [facility] of 00:00:00 [facility] Pneumococcal 7 2003-05-22 Completed [facility] Conjugate, PCV7 00:00:00 [place] [facility] (Prevnar7) [facility] Varicella 2003-05-22 Completed [facility] (varivax)(chicken 00:00:00 [facility] [place] [facility] pox) Branch HIB 4 Dose Schedule 2003-05-22 Completed [facility] of 00:00:00 [facility] MMR 2003-05-22 Completed [facility] of 00:00:00 [facility] Pneumococcal 7 2003-05-22 Completed [facility] Conjugate, PCV7 00:00:00 [place] [facility] (Prevnar7) [facility] Varicella 2003-05-22 Completed [facility] (varivax)(chicken 00:00:00 [place] [facility] pox) [facility] HIB 4 Dose Schedule 2003-05-22 Completed [facility] of 00:00:00 [facility] MMR 2003-05-22 Completed [facility] of 00:00:00 [facility] Pneumococcal 7 2003-05-22 Completed [facility] Conjugate, PCV7 00:00:00 [place] [facility] (Prevnar7) [facility] Varicella 2003-05-22 Completed [facility] (varivax)(chicken 00:00:00 [place] [facility] pox) [facility] HIB 4 Dose Schedule 2003-05-22 Completed [facility] 00:00:00 [facility] MMR 2003-05-22 Completed [facility] 00:00:00 [facility] Pneumococcal 7 2003-05-22 Completed [facility] Conjugate, PCV7 00:00:00 [place] [facility] (Prevnar7) [facility] Varicella 2003-05-22 Completed [facility] (varivax)(chicken 00:00:00 [facility] [place] [facility] pox) Branch HIB 4 Dose Schedule 2003-05-22 Completed [facility] of 00:00:00 [facility] MMR 2003-05-22 Completed [facility] of 00:00:00 [facility] Pneumococcal 7 2003-05-22 Completed [facility] Conjugate, PCV7 00:00:00 [place] [facility] (Prevnar7) [facility] Varicella 2003-05-22 Completed [facility] (varivax)(chicken 00:00:00 [facility] [place] [facility] pox) Branch HIB 4 Dose Schedule 2003-05-22 Completed [facility] of 00:00:00 [facility] MMR 2003-05-22 Completed [facility] of 00:00:00 [facility] Pneumococcal 7 2003-05-22 Completed [facility] Conjugate, PCV7 00:00:00 [place] [facility] (Prevnar7) [facility] Varicella 2003-05-22 Completed [facility] (varivax)(chicken 00:00:00 [place] [facility] pox) [facility] HIB 4 Dose Schedule 2003-05-22 Completed [facility] of 00:00:00 [facility] MMR 2003-05-22 Completed [facility] of 00:00:00 [facility] Pneumococcal 7 2003-05-22 Completed [facility] Conjugate, PCV7 00:00:00 [place] [facility] (Prevnar7) [facility] Varicella 2003-05-22 Completed [facility] (varivax)(chicken 00:00:00 [facility] [place] [facility] pox) Branch HIB 4 Dose Schedule 2003-05-22 Completed [facility] of 00:00:00 [facility] MMR 2003-05-22 Completed [facility] of 00:00:00 [facility] Pneumococcal 7 2003-05-22 Completed [facility] Conjugate, PCV7 00:00:00 [place] [facility] (Prevnar7) [facility] Varicella 2003-05-22 Completed [facility] (varivax)(chicken 00:00:00 [place] [facility] pox) [facility] DTAP 2003-01-01 Completed [facility] 00:00:00 [facility] HIB 4 Dose Schedule 2003-01-01 Completed [facility] of 00:00:00 [facility] Hep B, Adol or Pedi 2003-01-01 Completed [facility]ive [facility] of Dosage 00:00:00 [facility] Pneumococcal 7 2003-01-01 Completed [facility] Conjugate, PCV7 00:00:00 [place] [facility] (Prevnar7) [facility] DTAP 2003-01-01 Completed [facility] 00:00:00 [facility] HIB 4 Dose Schedule 2003-01-01 Completed [facility] of 00:00:00 [facility] Hep B, Adol or Pedi 2003-01-01 Completed [facility] of Dosage 00:00:00 [facility] Pneumococcal 7 2003-01-01 Completed [facility] Conjugate, PCV7 00:00:00 [place] [facility] (Prevnar7) [facility] DTAP 2003-01-01 Completed [facility] 00:00:00 [facility] HIB 4 Dose Schedule 2003-01-01 Completed [facility] of 00:00:00 [facility] Hep B, Adol or Pedi 2003-01-01 Completed [facility]ive [facility] of Dosage 00:00:00 [facility] Pneumococcal 7 2003-01-01 Completed [facility] Conjugate, PCV7 00:00:00 [place] [facility] (Prevnar7) [facility] DTAP 2003-01-01 Completed [facility] 00:00:00 [facility] HIB 4 Dose Schedule 2003-01-01 Completed [facility] of 00:00:00 [facility] Hep B, Adol or Pedi 2003-01-01 Completed [facility] of Dosage 00:00:00 [facility] Pneumococcal 7 2003-01-01 Completed [facility] Conjugate, PCV7 00:00:00 [place] [facility] (Prevnar7) [facility] DTAP 2003-01-01 Completed [facility] 00:00:00 [facility] HIB 4 Dose Schedule 2003-01-01 Completed [facility] of 00:00:00 [facility] Hep B, Adol or Pedi 2003-01-01 Completed [facility] of Dosage 00:00:00 [facility] Pneumococcal 7 2003-01-01 Completed [facility] Conjugate, PCV7 00:00:00 [place] [facility] (Prevnar7) [facility] DTAP 2003-01-01 Completed [facility] 00:00:00 [facility] HIB 4 Dose Schedule 2003-01-01 Completed [facility] of 00:00:00 [facility] Hep B, Adol or Pedi 2003-01-01 Completed [facility] of Dosage 00:00:00 [facility] Pneumococcal 7 2003-01-01 Completed [facility] Conjugate, PCV7 00:00:00 [place] [facility] (Prevnar7) [facility] DTAP 2003-01-01 Completed [facility] 00:00:00 [facility] HIB 4 Dose Schedule 2003-01-01 Completed [facility] of 00:00:00 [facility] Hep B, Adol or Pedi 2003-01-01 Completed [facility] of Dosage 00:00:00 [facility] Pneumococcal 7 2003-01-01 Completed [facility] Conjugate, PCV7 00:00:00 [place] [facility] (Prevnar7) [facility] DTAP 2003-01-01 Completed [facility] 00:00:00 [facility] HIB 4 Dose Schedule 2003-01-01 Completed [facility] of 00:00:00 [facility] Hep B, Adol or Pedi 2003-01-01 Completed [facility] of Dosage 00:00:00 [facility] Pneumococcal 7 2003-01-01 Completed [facility] Conjugate, PCV7 00:00:00 [place] [facility] (Prevnar7) [facility] DTAP 2003-01-01 Completed [facility] 00:00:00 [facility] HIB 4 Dose Schedule 2003-01-01 Completed [facility] of 00:00:00 [facility] Hep B, Adol or Pedi 2003-01-01 Completed [facility] of Dosage 00:00:00 [facility] Pneumococcal 7 2003-01-01 Completed [facility] Conjugate, PCV7 00:00:00 [place] [facility] (Prevnar7) [facility] DTAP 2003-01-01 Completed [facility] 00:00:00 [facility] HIB 4 Dose Schedule 2003-01-01 Completed [facility] of 00:00:00 [facility] Hep B, Adol or Pedi 2003-01-01 Completed [facility] of Dosage 00:00:00 [facility] Pneumococcal 7 2003-01-01 Completed [facility] Conjugate, PCV7 00:00:00 [place] [facility] (Prevnar7) [facility] DTAP 2003-01-01 Completed [facility] 00:00:00 [facility] HIB 4 Dose Schedule 2003-01-01 Completed [facility] of 00:00:00 [facility] Hep B, Adol or Pedi 2003-01-01 Completed [facility] of Dosage 00:00:00 [facility] Pneumococcal 7 2003-01-01 Completed [facility] Conjugate, PCV7 00:00:00 [place] [facility] (Prevnar7) [facility] DTAP 2003-01-01 Completed [facility] 00:00:00 [facility] HIB 4 Dose Schedule 2003-01-01 Completed [facility] of 00:00:00 [facility] Hep B, Adol or Pedi 2003-01-01 Completed [facility] of Dosage 00:00:00 [facility] Pneumococcal 7 2003-01-01 Completed [facility] Conjugate, PCV7 00:00:00 [place] [facility] (Prevnar7) [facility] DTAP 2003-01-01 Completed [facility] 00:00:00 [facility] HIB 4 Dose Schedule 2003-01-01 Completed [facility] of 00:00:00 [facility] Hep B, Adol or Pedi 2003-01-01 Completed [facility] of Dosage 00:00:00 [facility] Pneumococcal 7 2003-01-01 Completed [facility] Conjugate, PCV7 00:00:00 [place] [facility] (Prevnar7) [facility] DTAP 2003-01-01 Completed [facility] 00:00:00 [facility] HIB 4 Dose Schedule 2003-01-01 Completed [facility] of 00:00:00 [facility] Hep B, Adol or Pedi 2003-01-01 Completed [facility] of Dosage 00:00:00 [facility] Pneumococcal 7 2003-01-01 Completed [facility] Conjugate, PCV7 00:00:00 [place] [facility] (Prevnar7) [facility] DTAP 2003-01-01 Completed [facility] 00:00:00 [facility] HIB 4 Dose Schedule 2003-01-01 Completed [facility] of 00:00:00 [facility] Hep B, Adol or Pedi 2003-01-01 Completed [facility] of Dosage 00:00:00 [facility] Pneumococcal 7 2003-01-01 Completed [facility] Conjugate, PCV7 00:00:00 [place] [facility] (Prevnar7) [facility] DTAP 2003-01-01 Completed [facility] 00:00:00 [facility] HIB 4 Dose Schedule 2003-01-01 Completed [facility] of 00:00:00 [facility] Hep B, Adol or Pedi 2003-01-01 Completed [facility] of Dosage 00:00:00 [facility] Pneumococcal 7 2003-01-01 Completed [facility] Conjugate, PCV7 00:00:00 [place] [facility] (Prevnar7) [facility] DTAP 2003-01-01 Completed [facility] 00:00:00 [facility] HIB 4 Dose Schedule 2003-01-01 Completed [facility] of 00:00:00 [facility] Hep B, Adol or Pedi 2003-01-01 Completed [facility] of Dosage 00:00:00 [facility] Pneumococcal 7 2003-01-01 Completed [facility] Conjugate, PCV7 00:00:00 [place] [facility] (Prevnar7) [facility] DTAP 2003-01-01 Completed [facility] 00:00:00 [facility] HIB 4 Dose Schedule 2003-01-01 Completed [facility] of 00:00:00 [facility] Hep B, Adol or Pedi 2003-01-01 Completed [facility] of Dosage 00:00:00 [facility] Pneumococcal 7 2003-01-01 Completed [facility] Conjugate, PCV7 00:00:00 [place] [facility] (Prevnar7) [facility] DTAP 2003-01-01 Completed [facility] 00:00:00 [facility] HIB 4 Dose Schedule 2003-01-01 Completed [facility] of 00:00:00 [facility] Hep B, Adol or Pedi 2003-01-01 Completed [facility] of Dosage 00:00:00 [facility] Pneumococcal 7 2003-01-01 Completed [facility] Conjugate, PCV7 00:00:00 [place] [facility] (Prevnar7) [facility] DTAP 2003-01-01 Completed [facility] 00:00:00 [facility] HIB 4 Dose Schedule 2003-01-01 Completed [facility] of 00:00:00 [facility] Hep B, Adol or Pedi 2003-01-01 Completed [facility] of Dosage 00:00:00 [facility] Pneumococcal 7 2003-01-01 Completed [facility] Conjugate, PCV7 00:00:00 [place] [facility] (Prevnar7) [facility] DTAP 2003-01-01 Completed [facility] 00:00:00 [facility] HIB 4 Dose Schedule 2003-01-01 Completed [facility] of 00:00:00 [facility] Hep B, Adol or Pedi 2003-01-01 Completed [facility] of Dosage 00:00:00 [facility] Pneumococcal 7 2003-01-01 Completed [facility] Conjugate, PCV7 00:00:00 [place] [facility] (Prevnar7) [facility] DTAP 2003-01-01 Completed [facility] 00:00:00 [facility] HIB 4 Dose Schedule 2003-01-01 Completed [facility] of 00:00:00 [facility] Hep B, Adol or Pedi 2003-01-01 Completed [facility] of Dosage 00:00:00 [facility] Pneumococcal 7 2003-01-01 Completed [facility] Conjugate, PCV7 00:00:00 [place] [facility] (Prevnar7) [facility] DTAP 2003-01-01 Completed [facility] 00:00:00 [facility] HIB 4 Dose Schedule 2003-01-01 Completed [facility] of 00:00:00 [facility] Hep B, Adol or Pedi 2003-01-01 Completed [facility] of Dosage 00:00:00 [facility] Pneumococcal 7 2003-01-01 Completed [facility] Conjugate, PCV7 00:00:00 [place] [facility] (Prevnar7) [facility] DTAP 2003-01-01 Completed [facility] 00:00:00 [facility] HIB 4 Dose Schedule 2003-01-01 Completed [facility] of 00:00:00 [facility] Hep B, Adol or Pedi 2003-01-01 Completed [facility] of Dosage 00:00:00 [facility] Pneumococcal 7 2003-01-01 Completed [facility] Conjugate, PCV7 00:00:00 [place] [facility] (Prevnar7) [facility] DTAP 2003-01-01 Completed [facility] 00:00:00 [facility] HIB 4 Dose Schedule 2003-01-01 Completed [facility] of 00:00:00 [facility] Hep B, Adol or Pedi 2003-01-01 Completed [facility] of Dosage 00:00:00 [facility] Pneumococcal 7 2003-01-01 Completed [facility] Conjugate, PCV7 00:00:00 [place] [facility] (Prevnar7) [facility] DTAP 2003-01-01 Completed [facility] 00:00:00 [facility] HIB 4 Dose Schedule 2003-01-01 Completed [facility] of 00:00:00 [facility] Hep B, Adol or Pedi 2003-01-01 Completed [facility] of Dosage 00:00:00 [facility] Pneumococcal 7 2003-01-01 Completed [facility] Conjugate, PCV7 00:00:00 [place] [facility] (Prevnar7) [facility] DTAP 2003-01-01 Completed [facility] 00:00:00 [facility] HIB 4 Dose Schedule 2003-01-01 Completed [facility] of 00:00:00 [facility] Hep B, Adol or Pedi 2003-01-01 Completed [facility] of Dosage 00:00:00 [facility] Pneumococcal 7 2003-01-01 Completed [facility] Conjugate, PCV7 00:00:00 [place] [facility] (Prevnar7) [facility] DTAP 2003-01-01 Completed [facility] 00:00:00 [facility] HIB 4 Dose Schedule 2003-01-01 Completed [facility] of 00:00:00 [facility] Hep B, Adol or Pedi 2003-01-01 Completed [facility] of Dosage 00:00:00 [facility] Pneumococcal 7 2003-01-01 Completed [facility] Conjugate, PCV7 00:00:00 [place] [facility] (Prevnar7) [facility] DTAP 2003-01-01 Completed [facility] 00:00:00 [facility] HIB 4 Dose Schedule 2003-01-01 Completed [facility] of 00:00:00 [facility] Hep B, Adol or Pedi 2003-01-01 Completed [facility] of Dosage 00:00:00 [facility] Pneumococcal 7 2003-01-01 Completed [facility] Conjugate, PCV7 00:00:00 [place] [facility] (Prevnar7) [facility] DTAP 2003-01-01 Completed [facility] 00:00:00 [facility] HIB 4 Dose Schedule 2003-01-01 Completed [facility] of 00:00:00 [facility] Hep B, Adol or Pedi 2003-01-01 Completed [facility] of Dosage 00:00:00 [facility] Pneumococcal 7 2003-01-01 Completed [facility] Conjugate, PCV7 00:00:00 [place] [facility] (Prevnar7) [facility] DTAP 2003-01-01 Completed [facility] 00:00:00 [facility] HIB 4 Dose Schedule 2003-01-01 Completed [facility] of 00:00:00 [facility] Hep B, Adol or Pedi 2003-01-01 Completed [facility] of Dosage 00:00:00 [facility] Pneumococcal 7 2003-01-01 Completed [facility] Conjugate, PCV7 00:00:00 [place] [facility] (Prevnar7) [facility] DTAP 2003-01-01 Completed [facility] 00:00:00 [facility] HIB 4 Dose Schedule 2003-01-01 Completed [facility] of 00:00:00 [facility] Hep B, Adol or Pedi 2003-01-01 Completed [facility] of Dosage 00:00:00 [facility] Pneumococcal 7 2003-01-01 Completed [facility] Conjugate, PCV7 00:00:00 [place] [facility] (Prevnar7) [facility] DTAP 2003-01-01 Completed [facility] 00:00:00 [facility] HIB 4 Dose Schedule 2003-01-01 Completed [facility] of 00:00:00 [facility] Hep B, Adol or Pedi 2003-01-01 Completed [facility] of Dosage 00:00:00 [facility] Pneumococcal 7 2003-01-01 Completed [facility] Conjugate, PCV7 00:00:00 [place] [facility] (Prevnar7) [facility] DTAP 2003-01-01 Completed [facility] 00:00:00 [facility] HIB 4 Dose Schedule 2003-01-01 Completed [facility] of 00:00:00 [facility] Hep B, Adol or Pedi 2003-01-01 Completed [facility] of Dosage 00:00:00 [facility] Pneumococcal 7 2003-01-01 Completed [facility] Conjugate, PCV7 00:00:00 [place] [facility] (Prevnar7) [facility] DTAP 2003-01-01 Completed [facility] 00:00:00 [facility] HIB 4 Dose Schedule 2003-01-01 Completed [facility] of 00:00:00 [facility] Hep B, Adol or Pedi 2003-01-01 Completed [facility] of Dosage 00:00:00 [facility] Pneumococcal 7 2003-01-01 Completed [facility] Conjugate, PCV7 00:00:00 [place] [facility] (Prevnar7) [facility] DTAP 2003-01-01 Completed [facility] 00:00:00 [facility] HIB 4 Dose Schedule 2003-01-01 Completed [facility] of 00:00:00 [facility] Hep B, Adol or Pedi 2003-01-01 Completed [facility] of Dosage 00:00:00 [facility] Pneumococcal 7 2003-01-01 Completed [facility] Conjugate, PCV7 00:00:00 [place] [facility] (Prevnar7) [facility] DTAP 2003-01-01 Completed [facility] 00:00:00 [facility] HIB 4 Dose Schedule 2003-01-01 Completed [facility] of 00:00:00 [facility] Hep B, Adol or Pedi 2003-01-01 Completed [facility] of Dosage 00:00:00 [facility] Pneumococcal 7 2003-01-01 Completed [facility] Conjugate, PCV7 00:00:00 [place] [facility] (Prevnar7) [facility] DTAP 2003-01-01 Completed [facility] 00:00:00 [facility] HIB 4 Dose Schedule 2003-01-01 Completed [facility] of 00:00:00 [facility] Hep B, Adol or Pedi 2003-01-01 Completed [facility] of Dosage 00:00:00 [facility] Pneumococcal 7 2003-01-01 Completed [facility] Conjugate, PCV7 00:00:00 [place] [facility] (Prevnar7) [facility] DTAP 2003-01-01 Completed [facility] 00:00:00 [facility] HIB 4 Dose Schedule 2003-01-01 Completed [facility] of 00:00:00 [facility] Hep B, Adol or Pedi 2003-01-01 Completed [facility] of Dosage 00:00:00 [facility] Pneumococcal 7 2003-01-01 Completed [facility] Conjugate, PCV7 00:00:00 [place] [facility] (Prevnar7) [facility] DTAP 2003-01-01 Completed [facility] 00:00:00 [facility] HIB 4 Dose Schedule 2003-01-01 Completed [facility] of 00:00:00 [facility] Hep B, Adol or Pedi 2003-01-01 Completed [facility] of Dosage 00:00:00 [facility] Pneumococcal 7 2003-01-01 Completed [facility] Conjugate, PCV7 00:00:00 [place] [facility] (Prevnar7) [facility] DTAP 2003-01-01 Completed [facility] 00:00:00 [facility] HIB 4 Dose Schedule 2003-01-01 Completed [facility] of 00:00:00 [facility] Hep B, Adol or Pedi 2003-01-01 Completed [facility] of Dosage 00:00:00 [facility] Pneumococcal 7 2003-01-01 Completed [facility] Conjugate, PCV7 00:00:00 [place] [facility] (Prevnar7) [facility] DTAP 2003-01-01 Completed [facility] 00:00:00 [facility] HIB 4 Dose Schedule 2003-01-01 Completed [facility] 00:00:00 [facility] Hep B, Adol or Pedi 2003-01-01 Completed [facility] of Dosage 00:00:00 [facility] Pneumococcal 7 2003-01-01 Completed [facility] Conjugate, PCV7 00:00:00 [place] [facility] (Prevnar7) [facility] DTAP 2003-01-01 Completed [facility] 00:00:00 [facility] HIB 4 Dose Schedule 2003-01-01 Completed [facility] of 00:00:00 [facility] Hep B, Adol or Pedi 2003-01-01 Completed [facility] of Dosage 00:00:00 [facility] Pneumococcal 7 2003-01-01 Completed [facility] Conjugate, PCV7 00:00:00 [place] [facility] (Prevnar7) [facility] DTAP 2003-01-01 Completed [facility] 00:00:00 [facility] HIB 4 Dose Schedule 2003-01-01 Completed [facility] of 00:00:00 [facility] Hep B, Adol or Pedi 2003-01-01 Completed [facility] of Dosage 00:00:00 [facility] Pneumococcal 7 2003-01-01 Completed [facility] Conjugate, PCV7 00:00:00 [place] [facility] (Prevnar7) [facility] DTAP 2003-01-01 Completed [facility] 00:00:00 [facility] HIB 4 Dose Schedule 2003-01-01 Completed [facility] of 00:00:00 [facility] Hep B, Adol or Pedi 2003-01-01 Completed [facility] of Dosage 00:00:00 [facility] Pneumococcal 7 2003-01-01 Completed [facility] Conjugate, PCV7 00:00:00 [place] [facility] (Prevnar7) [facility] DTAP 2003-01-01 Completed [facility] 00:00:00 [facility] HIB 4 Dose Schedule 2003-01-01 Completed [facility] of 00:00:00 [facility] Hep B, Adol or Pedi 2003-01-01 Completed [facility] of Dosage 00:00:00 [facility] Pneumococcal 7 2003-01-01 Completed [facility] Conjugate, PCV7 00:00:00 [place] [facility] (Prevnar7) [facility] DTAP 2003-01-01 Completed [facility] 00:00:00 [facility] HIB 4 Dose Schedule 2003-01-01 Completed [facility] 00:00:00 [facility] Hep B, Adol or Pedi 2003-01-01 Completed [facility] of Dosage 00:00:00 [facility] Pneumococcal 7 2003-01-01 Completed [facility] Conjugate, PCV7 00:00:00 [place] [facility] (Prevnar7) [facility] DTAP 2003-01-01 Completed [facility] 00:00:00 [facility] HIB 4 Dose Schedule 2003-01-01 Completed [facility] 00:00:00 [facility] Hep B, Adol or Pedi 2003-01-01 Completed [facility] of Dosage 00:00:00 [facility] Pneumococcal 7 2003-01-01 Completed [facility] Conjugate, PCV7 00:00:00 [place] [facility] (Prevnar7) [facility] DTAP 2003-01-01 Completed [facility] 00:00:00 [facility] HIB 4 Dose Schedule 2003-01-01 Completed [facility] 00:00:00 [facility] Hep B, Adol or Pedi 2003-01-01 Completed [facility] of Dosage 00:00:00 [facility] Pneumococcal 7 2003-01-01 Completed [facility] Conjugate, PCV7 00:00:00 [place] [facility] (Prevnar7) [facility] DTAP 2003-01-01 Completed [facility] 00:00:00 [facility] HIB 4 Dose Schedule 2003-01-01 Completed [facility] 00:00:00 [facility] Hep B, Adol or Pedi 2003-01-01 Completed [facility] of Dosage 00:00:00 [facility] Pneumococcal 7 2003-01-01 Completed [facility] Conjugate, PCV7 00:00:00 [facility] (Pre[facility]ar[facility] DTAP 2003-01-01 Completed [facility] of 00:00:00 [facility] HIB 4 Dose Schedule 2003-01-01 Completed [facility] 00:00:00 [facility] Hep B, Adol or Pedi 2003-01-01 Completed [facility] Dosage 00:00:00 [facility] Pneumococcal 7 2003-01-01 Completed [facility] Conjugate, PCV7 00:00:00 [facility] (Pre[facility]ar[facility] DTAP 2003-01-01 Completed [facility] 00:00:00 [facility] HIB 4 Dose Schedule 2003-01-01 Completed [facility] 00:00:00 [facility] Hep B, Adol or Pedi 2003-01-01 Completed [facility] Dosage 00:00:00 [facility] Pneumococcal 7 2003-01-01 Completed [facility] Conjugate, PCV7 00:00:00 [facility] (Prevnar[facility] DTAP 2003-01-01 Completed [facility] 00:00:00 [facility] HIB 4 Dose Schedule 2003-01-01 Completed [facility] of 00:00:00 [facility] Hep B, Adol or Pedi 2003-01-01 Completed [facility] Dosage 00:00:00 [facility] Pneumococcal 7 2003-01-01 Completed [facility] Conjugate, PCV7 00:00:00 [facility] (Pre[facility]ar[facility] DTAP 2003-01-01 Completed [facility] 00:00:00 [facility] HIB 4 Dose Schedule 2003-01-01 Completed [facility] 00:00:00 [facility] Hep B, Adol or Pedi 2003-01-01 Completed [facility] Dosage 00:00:00 [facility] Pneumococcal 7 2003-01-01 Completed [facility] Conjugate, PCV7 00:00:00 [facility] (Pre[facility]ar[facility] DTAP 2003-01-01 Completed [facility] 00:00:00 [facility] HIB 4 Dose Schedule 2003-01-01 Completed [facility] 00:00:00 [facility] Hep B, Adol or Pedi 2003-01-01 Completed [facility] Dosage 00:00:00 [facility] Pneumococcal 7 2003-01-01 Completed [facility] Conjugate, PCV7 00:00:00 [facility] (Prevnar[facility] DTAP 2003-01-01 Completed [facility] 00:00:00 [facility] HIB 4 Dose Schedule 2003-01-01 Completed [facility] of 00:00:00 [facility] Hep B, Adol or Pedi 2003-01-01 Completed [facility] Dosage 00:00:00 [facility] Pneumococcal 7 2003-01-01 Completed [facility] Conjugate, PCV7 00:00:00 [facility] (Prevnar[facility] DTAP 2003-01-01 Completed [facility] 00:00:00 [facility] HIB 4 Dose Schedule 2003-01-01 Completed [facility] 00:00:00 [facility] Hep B, Adol or Pedi 2003-01-01 Completed [facility] Dosage 00:00:00 [facility] Pneumococcal 7 2003-01-01 Completed [facility] Conjugate, PCV7 00:00:00 [facility] (Prevnar7[facility] DTAP 2003-01-01 Completed [facility] 00:00:00 [facility] HIB 4 Dose Schedule 2003-01-01 Completed [facility] of 00:00:00 [facility] Hep B, Adol or Pedi 2003-01-01 Completed [facility] of Dosage 00:00:00 [facility] Pneumococcal 7 2003-01-01 Completed [facility] Conjugate, PCV7 00:00:00 [facility] (Prevnar7[facility] DTAP 2003-01-01 Completed [facility] 00:00:00 [facility] HIB 4 Dose Schedule 2003-01-01 Completed [facility] of 00:00:00 [facility] Hep B, Adol or Pedi 2003-01-01 Completed [facility] Dosage 00:00:00 [facility] Pneumococcal 7 2003-01-01 Completed [facility] Conjugate, PCV7 00:00:00 [facility] (Prevnar[facility] DTAP 2003-01-01 Completed [facility] 00:00:00 [facility] HIB 4 Dose Schedule 2003-01-01 Completed [facility] 00:00:00 [facility] Hep B, Adol or Pedi 2003-01-01 Completed [facility] Dosage 00:00:00 [facility] Pneumococcal 7 2003-01-01 Completed [facility] Conjugate, PCV7 00:00:00 [facility] (Prevnar[facility] DTAP 2003-01-01 Completed [facility] 00:00:00 [facility] HIB 4 Dose Schedule 2003-01-01 Completed [facility] of 00:00:00 [facility] Hep B, Adol or Pedi 2003-01-01 Completed [facility] of Dosage 00:00:00 [facility] Pneumococcal 7 2003-01-01 Completed [facility] Conjugate, PCV7 00:00:00 [facility] (Prevnar7[facility] DTAP 2003-01-01 Completed [facility] 00:00:00 [facility] HIB 4 Dose Schedule 2003-01-01 Completed [facility] of 00:00:00 [facility] Hep B, Adol or Pedi 2003-01-01 Completed [facility] Dosage 00:00:00 [facility] Pneumococcal 7 2003-01-01 Completed [facility] Conjugate, PCV7 00:00:00 [facility] (Prevnar[facility] DTAP 2003-01-01 Completed [facility] 00:00:00 [facility] HIB 4 Dose Schedule 2003-01-01 Completed [facility] of 00:00:00 [facility] Hep B, Adol or Pedi 2003-01-01 Completed [facility] Dosage 00:00:00 [facility] Pneumococcal 7 2003-01-01 Completed [facility] Conjugate, PCV7 00:00:00 [facility] (Prevnar7[facility] DTAP 2003-01-01 Completed [facility] 00:00:00 [facility] HIB 4 Dose Schedule 2003-01-01 Completed [facility] of 00:00:00 [facility] Hep B, Adol or Pedi 2003-01-01 Completed [facility] of Dosage 00:00:00 [facility] Pneumococcal 7 2003-01-01 Completed [facility] Conjugate, PCV7 00:00:00 [facility] (Prevnar7[facility] DTAP 2003-01-01 Completed [facility] 00:00:00 [facility] HIB 4 Dose Schedule 2003-01-01 Completed [facility] 00:00:00 [facility] Hep B, Adol or Pedi 2003-01-01 Completed [facility] of Dosage 00:00:00 [facility] Pneumococcal 7 2003-01-01 Completed [facility] Conjugate, PCV7 00:00:00 [facility] (Prevnar7[facility] DTAP 2003-01-01 Completed [facility] 00:00:00 [facility] HIB 4 Dose Schedule 2003-01-01 Completed [facility] of 00:00:00 [facility] Hep B, Adol or Pedi 2003-01-01 Completed [facility] Dosage 00:00:00 [facility] Pneumococcal 7 2003-01-01 Completed [facility] Conjugate, PCV7 00:00:00 [facility] (Prevnar[facility] DTAP 2003-01-01 Completed [facility] 00:00:00 [facility] HIB 4 Dose Schedule 2003-01-01 Completed [facility] 00:00:00 [facility] Hep B, Adol or Pedi 2003-01-01 Completed [facility] of Dosage 00:00:00 [facility] Pneumococcal 7 2003-01-01 Completed [facility] Conjugate, PCV7 00:00:00 [facility] (Prevnar7[facility] DTAP 2003-01-01 Completed [facility] 00:00:00 [facility] HIB 4 Dose Schedule 2003-01-01 Completed [facility] 00:00:00 [facility] Hep B, Adol or Pedi 2003-01-01 Completed [facility] of Dosage 00:00:00 [facility] Pneumococcal 7 2003-01-01 Completed [facility] Conjugate, PCV7 00:00:00 [facility] (Prevnar7[facility] DTAP 2003-01-01 Completed [facility] 00:00:00 [facility] HIB 4 Dose Schedule 2003-01-01 Completed [facility] of 00:00:00 [facility] Hep B, Adol or Pedi 2003-01-01 Completed [facility] of Dosage 00:00:00 [facility] Pneumococcal 7 2003-01-01 Completed [facility] Conjugate, PCV7 00:00:00 [facility] (Prevnar7) [facility] DTAP 2003-01-01 Completed [facility] 00:00:00 [facility] HIB 4 Dose Schedule 2003-01-01 Completed [facility] of 00:00:00 [facility] Hep B, Adol or Pedi 2003-01-01 Completed [facility] of Dosage 00:00:00 [facility] Pneumococcal 7 2003-01-01 Completed [facility] Conjugate, PCV7 00:00:00 [facility] (Prevnar7[facility] DTAP 2003-01-01 Completed [facility] 00:00:00 [facility] HIB 4 Dose Schedule 2003-01-01 Completed [facility] of 00:00:00 [facility] Hep B, Adol or Pedi 2003-01-01 Completed [facility] of Dosage 00:00:00 [facility] Pneumococcal 7 2003-01-01 Completed [facility] Conjugate, PCV7 00:00:00 [facility] (Prevnar7) [facility] DTAP 2003-01-01 Completed [facility] 00:00:00 [facility] HIB 4 Dose Schedule 2003-01-01 Completed [facility] of 00:00:00 [facility] Hep B, Adol or Pedi 2003-01-01 Completed [facility] of Dosage 00:00:00 [facility] Pneumococcal 7 2003-01-01 Completed [facility] Conjugate, PCV7 00:00:00 [facility] (Prevnar7) [facility] DTAP 2003-01-01 Completed [facility] 00:00:00 [facility] HIB 4 Dose Schedule 2003-01-01 Completed [facility] of 00:00:00 [facility] Hep B, Adol or Pedi 2003-01-01 Completed [facility] of Dosage 00:00:00 [facility] Pneumococcal 7 2003-01-01 Completed [facility] Conjugate, PCV7 00:00:00 [facility] (Prevnar7[facility] DTAP 2003-01-01 Completed [facility] 00:00:00 [facility] HIB 4 Dose Schedule 2003-01-01 Completed [facility] of 00:00:00 [facility] Hep B, Adol or Pedi 2003-01-01 Completed [facility] of Dosage 00:00:00 [facility] Pneumococcal 7 2003-01-01 Completed [facility] Conjugate, PCV7 00:00:00 [facility] (Prevnar7) [facility] DTAP 2003-01-01 Completed [facility] 00:00:00 [facility] HIB 4 Dose Schedule 2003-01-01 Completed [facility] of 00:00:00 [facility] Hep B, Adol or Pedi 2003-01-01 Completed [facility] of Dosage 00:00:00 [facility] Pneumococcal 7 2003-01-01 Completed [facility] Conjugate, PCV7 00:00:00 [facility] (Prevnar7) [facility] DTAP 2003-01-01 Completed [facility] 00:00:00 [facility] HIB 4 Dose Schedule 2003-01-01 Completed [facility] 00:00:00 [facility] Hep B, Adol or Pedi 2003-01-01 Completed [facility] Dosage 00:00:00 [facility] Pneumococcal 7 2003-01-01 Completed [facility] Conjugate, PCV7 00:00:00 [facility] (Prevnar7) [facility] DTAP 2003-01-01 Completed [facility] 00:00:00 [facility] HIB 4 Dose Schedule 2003-01-01 Completed [facility] 00:00:00 [facility] Hep B, Adol or Pedi 2003-01-01 Completed [facility] Dosage 00:00:00 [facility] Pneumococcal 7 2003-01-01 Completed [facility] Conjugate, PCV7 00:00:00 [facility] (Prevnar7[facility] DTAP 2002 Completed [facility] 00:00:00 [facility] HIB 4 Dose Schedule 2002 Completed [facility] 00:00:00 [facility] Pneumococcal 7 2002 Completed [facility] Conjugate, PCV7 00:00:00 [facility] (Prevnar7[facility] Polio (IPV/OPV) 2002 Completed [facility] 00:00:00 [facility] DTAP 2002 Completed [facility] 00:00:00 [facility] HIB 4 Dose Schedule 2002 Completed [facility] 00:00:00 [facility] Pneumococcal 7 2002 Completed [facility] Conjugate, PCV7 00:00:00 [facility] (Prevnar7) [facility] Polio (IPV/OPV) 2002 Completed [facility] 00:00:00 [facility] DTAP 2002 Completed [facility] 00:00:00 [facility] HIB 4 Dose Schedule 2002 Completed [facility] of 00:00:00 [facility] Pneumococcal 7 2002 Completed [facility] Conjugate, PCV7 00:00:00 [facility] (Prevnar7) [facility] Polio (IPV/OPV) 2002 Completed [facility] 00:00:00 [facility] DTAP 2002 Completed [facility] 00:00:00 [facility] HIB 4 Dose Schedule 2002 Completed [facility] 00:00:00 [facility] Pneumococcal 7 2002 Completed [facility] Conjugate, PCV7 00:00:00 [facility] (Prevnar7) [facility] Polio (IPV/OPV) 2002 Completed [facility] 00:00:00 [facility] DTAP 2002 Completed [facility] 00:00:00 [facility] HIB 4 Dose Schedule 2002 Completed [facility] 00:00:00 [facility] Pneumococcal 7 2002 Completed [facility] Conjugate, PCV7 00:00:00 [facility] (Prevnar7) [facility] Polio (IPV/OPV) 2002 Completed [facility] 00:00:00 [facility] DTAP 2002 Completed [facility] 00:00:00 [facility] HIB 4 Dose Schedule 2002 Completed [facility] of 00:00:00 [facility] Pneumococcal 7 2002 Completed [facility] Conjugate, PCV7 00:00:00 [facility] (Prevnar7) [facility] Polio (IPV/OPV) 2002 Completed [facility] 00:00:00 [facility] DTAP 2002 Completed [facility] 00:00:00 [facility] HIB 4 Dose Schedule 2002 Completed [facility] of 00:00:00 [facility] Pneumococcal 7 2002 Completed [facility] Conjugate, PCV7 00:00:00 [facility] (Prevnar7) [facility] Polio (IPV/OPV) 2002 Completed [facility] 00:00:00 [facility] DTAP 2002 Completed [facility] 00:00:00 [facility] HIB 4 Dose Schedule 2002 Completed [facility] of 00:00:00 [facility] Pneumococcal 7 2002 Completed [facility] Conjugate, PCV7 00:00:00 [facility] (Prevnar7) [facility] Polio (IPV/OPV) 2002 Completed [facility] 00:00:00 [facility] DTAP 2002 Completed [facility] 00:00:00 [facility] HIB 4 Dose Schedule 2002 Completed [facility] of 00:00:00 [facility] Pneumococcal 7 2002 Completed [facility] Conjugate, PCV7 00:00:00 [facility] (Prevnar7) [facility] Polio (IPV/OPV) 2002 Completed [facility] 00:00:00 [facility] DTAP 2002 Completed [facility] 00:00:00 [facility] HIB 4 Dose Schedule 2002 Completed [facility] 00:00:00 [facility] Pneumococcal 7 2002 Completed [facility] Conjugate, PCV7 00:00:00 [facility] (Prevnar7) [facility] Polio (IPV/OPV) 2002 Completed [facility] 00:00:00 [facility] DTAP 2002 Completed [facility] 00:00:00 [facility] HIB 4 Dose Schedule 2002 Completed [facility] of 00:00:00 [facility] Pneumococcal 7 2002 Completed [facility] Conjugate, PCV7 00:00:00 [facility] (Prevnar7) [facility] Polio (IPV/OPV) 2002 Completed [facility] 00:00:00 [facility] DTAP 2002 Completed [facility] 00:00:00 [facility] HIB 4 Dose Schedule 2002 Completed [facility] of 00:00:00 [facility] Pneumococcal 7 2002 Completed [facility] Conjugate, PCV7 00:00:00 [facility] (Prevnar7) [facility] Polio (IPV/OPV) 2002 Completed [facility] 00:00:00 [facility] DTAP 2002 Completed [facility] 00:00:00 [facility] HIB 4 Dose Schedule 2002 Completed [facility] of 00:00:00 [facility] Pneumococcal 7 2002 Completed [facility] Conjugate, PCV7 00:00:00 [facility] (Prevnar7) [facility] Polio (IPV/OPV) 2002 Completed [facility] 00:00:00 [facility] DTAP 2002 Completed [facility] 00:00:00 [facility] HIB 4 Dose Schedule 2002 Completed [facility] 00:00:00 [facility] Pneumococcal 7 2002 Completed [facility] Conjugate, PCV7 00:00:00 [facility] (Prevnar7) [facility] Polio (IPV/OPV) 2002 Completed [facility] 00:00:00 [facility] DTAP 2002 Completed [facility] 00:00:00 [facility] HIB 4 Dose Schedule 2002 Completed [facility] of 00:00:00 [facility] Pneumococcal 7 2002 Completed [facility] Conjugate, PCV7 00:00:00 [facility] (Prevnar7) [facility] Polio (IPV/OPV) 2002 Completed [facility] 00:00:00 [facility] DTAP 2002 Completed [facility] 00:00:00 [facility] HIB 4 Dose Schedule 2002 Completed [facility] of 00:00:00 [facility] Pneumococcal 7 2002 Completed [facility] Conjugate, PCV7 00:00:00 [facility] (Prevnar7) [facility] Polio (IPV/OPV) 2002 Completed [facility] 00:00:00 [facility] DTAP 2002 Completed [facility] 00:00:00 [facility] HIB 4 Dose Schedule 2002 Completed [facility] of 00:00:00 [facility] Pneumococcal 7 2002 Completed [facility] Conjugate, PCV7 00:00:00 [facility] (Prevnar7) [facility] Polio (IPV/OPV) 2002 Completed [facility] 00:00:00 [facility] DTAP 2002 Completed [facility] 00:00:00 [facility] HIB 4 Dose Schedule 2002 Completed [facility] of 00:00:00 [facility] Pneumococcal 7 2002 Completed [facility] Conjugate, PCV7 00:00:00 [facility] (Prevnar7) [facility] Polio (IPV/OPV) 2002 Completed [facility] 00:00:00 [facility] DTAP 2002 Completed [facility] 00:00:00 [facility] HIB 4 Dose Schedule 2002 Completed [facility] of 00:00:00 [facility] Pneumococcal 7 2002 Completed [facility] Conjugate, PCV7 00:00:00 [facility] (Prevnar7) [facility] Polio (IPV/OPV) 2002 Completed [facility] 00:00:00 [facility] DTAP 2002 Completed [facility] 00:00:00 [facility] HIB 4 Dose Schedule 2002 Completed [facility] 00:00:00 [facility] Pneumococcal 7 2002 Completed [facility] Conjugate, PCV7 00:00:00 [facility] (Prevnar7) [facility] Polio (IPV/OPV) 2002 Completed [facility] 00:00:00 [facility] DTAP 2002 Completed [facility] 00:00:00 [facility] HIB 4 Dose Schedule 2002 Completed [facility] of 00:00:00 [facility] Pneumococcal 7 2002 Completed [facility] Conjugate, PCV7 00:00:00 [facility] (Prevnar7) [facility] Polio (IPV/OPV) 2002 Completed [facility] 00:00:00 [facility] DTAP 2002 Completed [facility] 00:00:00 [facility] HIB 4 Dose Schedule 2002 Completed [facility] 00:00:00 [facility] Pneumococcal 7 2002 Completed [facility] Conjugate, PCV7 00:00:00 [facility] (Prevnar7) [facility] Polio (IPV/OPV) 2002 Completed [facility] 00:00:00 [facility] DTAP 2002 Completed [facility] 00:00:00 [facility] HIB 4 Dose Schedule 2002 Completed [facility] 00:00:00 [facility] Pneumococcal 7 2002 Completed [facility] Conjugate, PCV7 00:00:00 [facility] (Prevnar7) [facility] Polio (IPV/OPV) 2002 Completed [facility] 00:00:00 [facility] DTAP 2002 Completed [facility] 00:00:00 [facility] HIB 4 Dose Schedule 2002 Completed [facility] 00:00:00 [facility] Pneumococcal 7 2002 Completed [facility] Conjugate, PCV7 00:00:00 [facility] (Prevnar7) [facility] Polio (IPV/OPV) 2002 Completed [facility] 00:00:00 [facility] DTAP 2002 Completed [facility] 00:00:00 [facility] HIB 4 Dose Schedule 2002 Completed [facility] 00:00:00 [facility] Pneumococcal 7 2002 Completed [facility] Conjugate, PCV7 00:00:00 [facility] (Prevnar7) [facility] Polio (IPV/OPV) 2002 Completed [facility] 00:00:00 [facility] DTAP 2002 Completed [facility] 00:00:00 [facility] HIB 4 Dose Schedule 2002 Completed [facility] 00:00:00 [facility] Pneumococcal 7 2002 Completed [facility] Conjugate, PCV7 00:00:00 [facility] (Prevnar7[facility] Polio (IPV/OPV) 2002 Completed [facility] 00:00:00 [facility] DTAP 2002 Completed [facility] 00:00:00 [facility] HIB 4 Dose Schedule 2002 Completed [facility] 00:00:00 [facility] Pneumococcal 7 2002 Completed [facility] Conjugate, PCV7 00:00:00 [facility] (Prevnar7) [facility] Polio (IPV/OPV) 2002 Completed [facility] 00:00:00 [facility] DTAP 2002 Completed [facility] 00:00:00 [facility] HIB 4 Dose Schedule 2002 Completed [facility] 00:00:00 [facility] Pneumococcal 7 2002 Completed [facility] Conjugate, PCV7 00:00:00 [facility] (Prevnar7) [facility] Polio (IPV/OPV) 2002 Completed [facility] 00:00:00 [facility] DTAP 2002 Completed [facility] 00:00:00 [facility] HIB 4 Dose Schedule 2002 Completed [facility] 00:00:00 [facility] Pneumococcal 7 2002 Completed [facility] Conjugate, PCV7 00:00:00 [facility] (Prevnar7) [facility] Polio (IPV/OPV) 2002 Completed [facility] 00:00:00 [facility] DTAP 2002 Completed [facility] 00:00:00 [facility] HIB 4 Dose Schedule 2002 Completed [facility] 00:00:00 [facility] Pneumococcal 7 2002 Completed [facility] Conjugate, PCV7 00:00:00 [facility] (Prevnar7) [facility] Polio (IPV/OPV) 2002 Completed [facility] 00:00:00 [facility] DTAP 2002 Completed [facility] 00:00:00 [facility] HIB 4 Dose Schedule 2002 Completed [facility] 00:00:00 [facility] Pneumococcal 7 2002 Completed [facility] Conjugate, PCV7 00:00:00 [facility] (Prevnar7) [facility] Polio (IPV/OPV) 2002 Completed [facility] 00:00:00 [facility] DTAP 2002 Completed [facility] 00:00:00 [facility] HIB 4 Dose Schedule 2002 Completed [facility] 00:00:00 [facility] Pneumococcal 7 2002 Completed [facility] Conjugate, PCV7 00:00:00 [facility] (Prevnar7) [facility] Polio (IPV/OPV) 2002 Completed [facility] 00:00:00 [facility] DTAP 2002 Completed [facility] 00:00:00 [facility] HIB 4 Dose Schedule 2002 Completed [facility] 00:00:00 [facility] Pneumococcal 7 2002 Completed [facility] Conjugate, PCV7 00:00:00 [facility] (Prevnar7) [facility] Polio (IPV/OPV) 2002 Completed [facility] 00:00:00 [facility] DTAP 2002 Completed [facility] 00:00:00 [facility] HIB 4 Dose Schedule 2002 Completed [facility] 00:00:00 [facility] Pneumococcal 7 2002 Completed [facility] Conjugate, PCV7 00:00:00 [facility] (Prevnar7) [facility] Polio (IPV/OPV) 2002 Completed [facility] 00:00:00 [facility] DTAP 2002 Completed [facility] 00:00:00 [facility] HIB 4 Dose Schedule 2002 Completed [facility] 00:00:00 [facility] Pneumococcal 7 2002 Completed [facility] Conjugate, PCV7 00:00:00 [facility] (Prevnar[facility]) [facility] Polio (IPV/OPV) 2002 Completed [facility] 00:00:00 [facility] DTAP 2002 Completed [facility] 00:00:00 [facility] HIB 4 Dose Schedule 2002 Completed [facility] 00:00:00 [facility] Pneumococcal 7 2002 Completed [facility] Conjugate, PCV7 00:00:00 [facility] (Prevnar7) [facility] Polio (IPV/OPV) 2002 Completed [facility] 00:00:00 [facility] DTAP 2002 Completed [facility] 00:00:00 [facility] HIB 4 Dose Schedule 2002 Completed [facility] 00:00:00 [facility] Pneumococcal 7 2002 Completed [facility] Conjugate, PCV7 00:00:00 [facility] (Prevnar7) [facility] Polio (IPV/OPV) 2002 Completed [facility] 00:00:00 [facility] DTAP 2002 Completed [facility] 00:00:00 [facility] HIB 4 Dose Schedule 2002 Completed [facility] 00:00:00 [facility] Pneumococcal 7 2002 Completed [facility] Conjugate, PCV7 00:00:00 [facility] (Prevnar[facility]) [facility] Polio (IPV/OPV) 2002 Completed [facility] 00:00:00 [facility] DTAP 2002 Completed [facility] 00:00:00 [facility] HIB 4 Dose Schedule 2002 Completed [facility] 00:00:00 [facility] Pneumococcal 7 2002 Completed [facility] Conjugate, PCV7 00:00:00 [facility] (Prevnar[facility] Polio (IPV/OPV) 2002 Completed [facility] 00:00:00 [facility] DTAP 2002 Completed [facility] 00:00:00 [facility] HIB 4 Dose Schedule 2002 Completed [facility] 00:00:00 [facility] Pneumococcal 7 2002 Completed [facility] Conjugate, PCV7 00:00:00 [facility] (Prevnar[facility] Polio (IPV/OPV) 2002 Completed [facility] 00:00:00 [facility] DTAP 2002 Completed [facility] 00:00:00 [facility] HIB 4 Dose Schedule 2002 Completed [facility] 00:00:00 [facility] Pneumococcal 7 2002 Completed [facility] Conjugate, PCV7 00:00:00 [facility]Pre[facility]ar[facility] Polio (IPV/OPV) 2002 Completed [facility] 00:00:00 [facility] DTAP 2002 Completed [facility] 00:00:00 [facility] [facility] HIB 4 Dose Schedule 2002 Completed [facility] 00:00:00 [facility] Pneumococcal 7 2002 Completed [facility] Conjugate, PCV7 00:00:00 [facility] ([facility] Polio (IPV/OPV) 2002 Completed [facility] 00:00:00 [facility] DTAP 2002 Completed [facility] 00:00:00 [facility] HIB 4 Dose Schedule 2002 Completed [facility] 00:00:00 [facility] Pneumococcal 7 2002 Completed [facility] Conjugate, PCV7 00:00:00 [facility] (Pre[facility] Polio (IPV/OPV) 2002 Completed [facility] 00:00:00 [facility] DTAP 2002 Completed [facility] 00:00:00 [facility] HIB 4 Dose Schedule 2002 Completed [facility] 00:00:00 [facility] Pneumococcal 7 2002 Completed [facility] Conjugate, PCV7 00:00:00 [facility] (Pre[facility] Polio (IPV/OPV) 2002 Completed [facility] 00:00:00 [facility] DTAP 2002 Completed [facility] 00:00:00 [facility] HIB 4 Dose Schedule 2002 Completed [facility] 00:00:00 [facility] Pneumococcal 7 2002 Completed [facility] Conjugate, PCV7 00:00:00 [facility] (Pre[facility] Polio (IPV/OPV) 2002 Completed [facility] 00:00:00 [facility] DTAP 2002 Completed [facility] 00:00:00 [facility] HIB 4 Dose Schedule 2002 Completed [facility] 00:00:00 [facility] Pneumococcal 7 2002 Completed [facility] Conjugate, PCV7 00:00:00 [facility] (Pre[facility] Polio (IPV/OPV) 2002 Completed [facility] 00:00:00 [facility] DTAP 2002 Completed [facility] 00:00:00 [facility] HIB 4 Dose Schedule 2002 Completed [facility] 00:00:00 [facility] Pneumococcal 7 2002 Completed [facility] Conjugate, PCV7 00:00:00 [facility] (Pre[facility] Polio (IPV/OPV) 2002 Completed [facility] 00:00:00 [facility] DTAP 2002 Completed [facility] 00:00:00 [facility] HIB 4 Dose Schedule 2002 Completed [facility] 00:00:00 [facility] Pneumococcal 7 2002 Completed [facility] Conjugate, PCV7 00:00:00 [facility] (Pre[facility]ar[facility] Polio (IPV/OPV) 2002 Completed [facility] 00:00:00 [facility] DTAP 2002 Completed [facility] 00:00:00 [facility] HIB 4 Dose Schedule 2002 Completed [facility] 00:00:00 [facility] Pneumococcal 7 2002 Completed [facility] Conjugate, PCV7 00:00:00 [facility] (Pre[facility]ar[facility] Polio (IPV/OPV) 2002 Completed [facility] 00:00:00 [facility] DTAP 2002 Completed [facility] 00:00:00 [facility] HIB 4 Dose Schedule 2002 Completed [facility] 00:00:00 [facility] Pneumococcal 7 2002 Completed [facility] Conjugate, PCV7 00:00:00 [facility] (Pre[facility]ar[facility] Polio (IPV/OPV) 2002 Completed [facility] 00:00:00 [facility] DTAP 2002 Completed [facility] 00:00:00 [facility] HIB 4 Dose Schedule 2002 Completed [facility] 00:00:00 [facility] Pneumococcal 7 2002 Completed [facility] Conjugate, PCV7 00:00:00 [facility] (Pre[facility]ar[facility] Polio (IPV/OPV) 2002 Completed [facility] 00:00:00 [facility] DTAP 2002 Completed [facility] 00:00:00 [facility] HIB 4 Dose Schedule 2002 Completed [facility] 00:00:00 [facility] Pneumococcal 7 2002 Completed [facility] Conjugate, PCV7 00:00:00 [facility] (Prevnar[facility] Polio (IPV/OPV) 2002 Completed [facility] 00:00:00 [facility] DTAP 2002 Completed [facility] 00:00:00 [facility] HIB 4 Dose Schedule 2002 Completed [facility] 00:00:00 [facility] Pneumococcal 7 2002 Completed [facility] Conjugate, PCV7 00:00:00 [facility] (Prevnar[facility] Polio (IPV/OPV) 2002 Completed [facility] 00:00:00 [facility] DTAP 2002 Completed [facility] 00:00:00 [facility] HIB 4 Dose Schedule 2002 Completed [facility] 00:00:00 [facility] Pneumococcal 7 2002 Completed [facility] Conjugate, PCV7 00:00:00 [facility] (Prevnar[facility] Polio (IPV/OPV) 2002 Completed [facility] 00:00:00 [facility] DTAP 2002 Completed [facility] 00:00:00 [facility] HIB 4 Dose Schedule 2002 Completed [facility] 00:00:00 [facility] Pneumococcal 7 2002 Completed [facility] Conjugate, PCV7 00:00:00 [facility] (Prevnar[facility] Polio (IPV/OPV) 2002 Completed [facility] 00:00:00 [facility] DTAP 2002 Completed [facility] 00:00:00 [facility] HIB 4 Dose Schedule 2002 Completed [facility] 00:00:00 [facility] Pneumococcal 7 2002 Completed [facility] Conjugate, PCV7 00:00:00 [facility] (Prevnar[facility] Polio (IPV/OPV) 2002 Completed [facility] 00:00:00 [facility] DTAP 2002 Completed [facility] 00:00:00 [facility] HIB 4 Dose Schedule 2002 Completed [facility] 00:00:00 [facility] Pneumococcal 7 2002 Completed [facility] Conjugate, PCV7 00:00:00 [facility] (Prevnar[facility] Polio (IPV/OPV) 2002 Completed [facility] 00:00:00 [facility] DTAP 2002 Completed [facility] 00:00:00 [facility] HIB 4 Dose Schedule 2002 Completed [facility] 00:00:00 [facility] Pneumococcal 7 2002 Completed [facility] Conjugate, PCV7 00:00:00 [facility] (Prevnar[facility] Polio (IPV/OPV) 2002 Completed [facility] 00:00:00 [facility] DTAP 2002 Completed [facility] 00:00:00 [facility] HIB 4 Dose Schedule 2002 Completed [facility] 00:00:00 [facility] Pneumococcal 7 2002 Completed [facility] Conjugate, PCV7 00:00:00 [facility] (Prevnar[facility] Polio (IPV/OPV) 2002 Completed [facility] 00:00:00 [facility] DTAP 2002 Completed [facility] 00:00:00 [facility] HIB 4 Dose Schedule 2002 Completed [facility] 00:00:00 [facility] Pneumococcal 7 2002 Completed [facility] Conjugate, PCV7 00:00:00 [facility] (Prevnar7[facility] Polio (IPV/OPV) 2002 Completed [facility] 00:00:00 [facility] DTAP 2002 Completed [facility] 00:00:00 [facility] HIB 4 Dose Schedule 2002 Completed [facility] 00:00:00 [facility] Pneumococcal 7 2002 Completed [facility] Conjugate, PCV7 00:00:00 [facility] (Prevnar[facility] Polio (IPV/OPV) 2002 Completed [facility] 00:00:00 [facility] DTAP 2002 Completed [facility] 00:00:00 [facility] HIB 4 Dose Schedule 2002 Completed [facility] 00:00:00 [facility] Pneumococcal 7 2002 Completed [facility] Conjugate, PCV7 00:00:00 [facility] (Prevnar[facility] Polio (IPV/OPV) 2002 Completed [facility] 00:00:00 [facility] DTAP 2002 Completed [facility] 00:00:00 [facility] HIB 4 Dose Schedule 2002 Completed [facility] 00:00:00 [facility] Pneumococcal 7 2002 Completed [facility] Conjugate, PCV7 00:00:00 [facility] (Prevnar[facility] Polio (IPV/OPV) 2002 Completed [facility] 00:00:00 [facility] DTAP 2002 Completed [facility] 00:00:00 [facility] HIB 4 Dose Schedule 2002 Completed [facility] 00:00:00 [facility] Pneumococcal 7 2002 Completed [facility] Conjugate, PCV7 00:00:00 [facility] (Prevnar[facility] Polio (IPV/OPV) 2002 Completed [facility] 00:00:00 [facility] DTAP 2002 Completed [facility] 00:00:00 [facility] HIB 4 Dose Schedule 2002 Completed [facility] 00:00:00 [facility] Pneumococcal 7 2002 Completed [facility] Conjugate, PCV7 00:00:00 [facility] (Prevnar7[facility] Polio (IPV/OPV) 2002 Completed [facility] 00:00:00 [facility] DTAP 2002 Completed [facility] 00:00:00 [facility] HIB 4 Dose Schedule 2002 Completed [facility] 00:00:00 [facility] Pneumococcal 7 2002 Completed [facility] Conjugate, PCV7 00:00:00 [facility] (Prevnar[facility] Polio (IPV/OPV) 2002 Completed [facility] 00:00:00 [facility] DTAP 2002 Completed [facility] 00:00:00 [facility] HIB 4 Dose Schedule 2002 Completed [facility] 00:00:00 [facility] Pneumococcal 7 2002 Completed [facility] Conjugate, PCV7 00:00:00 [facility] (Prevnar[facility] Polio (IPV/OPV) 2002 Completed [facility] 00:00:00 [facility] DTAP 2002 Completed [facility] 00:00:00 [facility] HIB 4 Dose Schedule 2002 Completed [facility] 00:00:00 [facility] Pneumococcal 7 2002 Completed [facility] Conjugate, PCV7 00:00:00 [facility] (Pre[facility]ar[facility] Polio (IPV/OPV) 2002 Completed [facility] 00:00:00 [facility] DTAP 2002 Completed [facility] 00:00:00 [facility] HIB 4 Dose Schedule 2002 Completed [facility] 00:00:00 [facility] Pneumococcal 7 2002 Completed [facility] Conjugate, PCV7 00:00:00 [facility] (Prevnar7[facility] Polio (IPV/OPV) 2002 Completed [facility] 00:00:00 [facility] DTAP 2002 Completed [facility] 00:00:00 [facility] HIB 4 Dose Schedule 2002 Completed [facility] 00:00:00 [facility] Pneumococcal 7 2002 Completed [facility] Conjugate, PCV7 00:00:00 [facility] (Prevnar7[facility] Polio (IPV/OPV) 2002 Completed [facility] 00:00:00 [facility] DTAP 2002 Completed [facility] 00:00:00 [facility] HIB 4 Dose Schedule 2002 Completed [facility] 00:00:00 [facility] Pneumococcal 7 2002 Completed [facility] Conjugate, PCV7 00:00:00 [facility] (Prevnar7[facility] Polio (IPV/OPV) 2002 Completed [facility] 00:00:00 [facility] DTAP 2002 Completed [facility] 00:00:00 [facility] HIB 4 Dose Schedule 2002 Completed [facility] 00:00:00 [facility] Pneumococcal 7 2002 Completed [facility] Conjugate, PCV7 00:00:00 [facility] (Prevnar7[facility] Polio (IPV/OPV) 2002 Completed [facility] 00:00:00 [facility] DTAP 2002 Completed [facility] 00:00:00 [facility] HIB 4 Dose Schedule 2002 Completed [facility] 00:00:00 [facility] Pneumococcal 7 2002 Completed [facility] Conjugate, PCV7 00:00:00 [facility] (Prevnar7[facility] Polio (IPV/OPV) 2002 Completed [facility] 00:00:00 [facility] DTAP 2002 Completed [facility] 00:00:00 [facility] HIB 4 Dose Schedule 2002 Completed [facility] 00:00:00 [facility] Pneumococcal 7 2002 Completed [facility] Conjugate, PCV7 00:00:00 [facility] (Prevnar[facility] Polio (IPV/OPV) 2002 Completed [facility] 00:00:00 [facility] DTAP 2002 Completed [facility] 00:00:00 [facility] HIB 4 Dose Schedule 2002 Completed [facility] 00:00:00 [facility] Pneumococcal 7 2002 Completed [facility] Conjugate, PCV7 00:00:00 [facility] (Prevnar7[facility] Polio (IPV/OPV) 2002 Completed [facility] 00:00:00 [facility] DTAP 2002 Completed [facility] 00:00:00 [facility] HIB 4 Dose Schedule 2002 Completed [facility] 00:00:00 [facility] Pneumococcal 7 2002 Completed [facility] Conjugate, PCV7 00:00:00 [facility] (Pre[facility]ar[facility] Polio (IPV/OPV) 2002 Completed [facility] 00:00:00 [facility] DTAP 2002 Completed [facility] 00:00:00 [facility] HIB 4 Dose Schedule 2002 Completed [facility] 00:00:00 [facility] Pneumococcal 7 2002 Completed [facility] Conjugate, PCV7 00:00:00 [facility] (Prevnar7[facility] Polio (IPV/OPV) 2002 Completed [facility] 00:00:00 [facility] DTAP 2002 Completed [facility] 00:00:00 [facility] HIB 4 Dose Schedule 2002 Completed [facility] 00:00:00 [facility] Hep B, Adol or Pedi 2002 Completed [facility] Dosage 00:00:00 [facility] Polio (IPV/OPV) 2002 Completed [facility] 00:00:00 [facility] DTAP 2002 Completed [facility] 00:00:00 [facility] HIB 4 Dose Schedule 2002 Completed [facility] 00:00:00 [facility] Hep B, Adol or Pedi 2002 Completed [facility] Dosage 00:00:00 [facility] Polio (IPV/OPV) 2002 Completed [facility] 00:00:00 [facility] DTAP 2002 Completed [facility] 00:00:00 [facility] HIB 4 Dose Schedule 2002 Completed [facility] 00:00:00 [facility] Hep B, Adol or Pedi 2002 Completed [facility] Dosage 00:00:00 [facility] Polio (IPV/OPV) 2002 Completed [facility] 00:00:00 [facility] DTAP 2002 Completed [facility] 00:00:00 [facility] HIB 4 Dose Schedule 2002 Completed [facility] 00:00:00 [facility] Hep B, Adol or Pedi 2002 Completed [facility] Dosage 00:00:00 [facility] Polio (IPV/OPV) 2002 Completed [facility] 00[facility]00:00 [facility] DTAP 2002 Completed [facility] 00:00:00 [facility] HIB 4 Dose Schedule 2002 Completed [facility] 00:00:00 [facility] Hep B, Adol or Pedi 2002 Completed [facility] Dosage 00:00:00 [facility] Polio (IPV/OPV) 2002 Completed [facility] 00:00:00 [facility] DTAP 2002 Completed [facility] 00:00:00 [facility] HIB 4 Dose Schedule 2002 Completed [facility] 00:00:00 [facility] Hep B, Adol or Pedi 2002 Completed [facility] Dosage 00:00:00 [facility] Polio (IPV/OPV) 2002 Completed [facility] 00:00:00 [facility] DTAP 2002 Completed [facility] 00:00:00 [facility] HIB 4 Dose Schedule 2002 Completed [facility] 00:00:00 [facility] Hep B, Adol or Pedi 2002 Completed [facility] Dosage 00:00:00 [facility] Polio (IPV/OPV) 2002 Completed [facility] 00:00:00 [facility] DTAP 2002 Completed [facility] 00:00:00 [facility] HIB 4 Dose Schedule 2002 Completed [facility] 00:00:00 [facility] Hep B, Adol or Pedi 2002 Completed [facility] Dosage 00:00:00 [facility] Polio (IPV/OPV) 2002 Completed [facility] 00:00:00 [facility] DTAP 2002 Completed [facility] 00:00:00 [facility] HIB 4 Dose Schedule 2002 Completed [facility] 00:00:00 [facility] Hep B, Adol or Pedi 2002 Completed [facility] Dosage 00:00:00 [facility] Polio (IPV/OPV) 2002 Completed [facility] 00:00:00 [facility] DTAP 2002 Completed [facility] 00:00:00 [facility] HIB 4 Dose Schedule 2002 Completed [facility] 00:00:00 [facility] Hep B, Adol or Pedi 2002 Completed [facility] Dosage 00:00:00 [facility] Polio (IPV/OPV) 2002 Completed [facility] 00:00:00 [facility] DTAP 2002 Completed [facility] 00:00:00 [facility] HIB 4 Dose Schedule 2002 Completed [facility] 00:00:00 [facility] Hep B, Adol or Pedi 2002 Completed [facility] Dosage 00:00:00 [facility] Polio (IPV/OPV) 2002 Completed [facility] 00:00:00 [facility] DTAP 2002 Completed [facility] 00:00:00 [facility] HIB 4 Dose Schedule 2002 Completed [facility] 00:00:00 [facility] Hep B, Adol or Pedi 2002 Completed [facility] Dosage 00:00:00 [facility] Polio (IPV/OPV) 2002 Completed [facility] 00:00:00 [facility] DTAP 2002 Completed [facility] 00:00:00 [facility] HIB 4 Dose Schedule 2002 Completed [facility] 00:00:00 [facility] Hep B, Adol or Pedi 2002 Completed [facility] Dosage 00:00:00 [facility] Polio (IPV/OPV) 2002 Completed [facility] 00:00:00 [facility] DTAP 2002 Completed [facility] 00:00:00 [facility] HIB 4 Dose Schedule 2002 Completed [facility] 00:00:00 [facility] Hep B, Adol or Pedi 2002 Completed [facility] Dosage 00:00:00 [facility] Polio (IPV/OPV) 2002 Completed [facility] 00:00:00 [facility] DTAP 2002 Completed [facility] 00:00:00 [facility] HIB 4 Dose Schedule 2002 Completed [facility] 00:00:00 [facility] Hep B, Adol or Pedi 2002 Completed [facility] Dosage 00:00:00 [facility] Polio (IPV/OPV) 2002 Completed [facility] 00:00:00 [facility] DTAP 2002 Completed [facility] 00:00:00 [facility] HIB 4 Dose Schedule 2002 Completed [facility] 00:00:00 [facility] Hep B, Adol or Pedi 2002 Completed [facility] Dosage 00:00:00 [facility] Polio (IPV/OPV) 2002 Completed [facility] 00:00:00 [facility] DTAP 2002 Completed [facility] 00:00:00 [facility] [place] HIB 4 Dose Schedule 2002 Completed [facility] 00:00:00 [facility] Hep B, Adol or Pedi 2002 Completed [facility] Dosage 00:00:00 [facility] Polio (IPV/OPV) 2002 Completed [facility] 00:00:00 [facility] DTAP 2002 Completed [facility] 00:00:00 [facility] HIB 4 Dose Schedule 2002 Completed [facility] 00:00:00 [facility] Hep B, Adol or Pedi 2002 Completed [facility] Dosage 00:00:00 [facility] Polio (IPV/OPV) 2002 Completed [facility] 00:00:00 [facility] DTAP 2002 Completed [facility] 00:00:00 [facility] HIB 4 Dose Schedule 2002 Completed [facility] 00:00:00 [facility] Hep B, Adol or Pedi 2002 Completed [facility] Dosage 00:00:00 [facility] Polio (IPV/OPV) 2002 Completed [facility] 00:00:00 [facility] DTAP 2002 Completed [facility] 00:00:00 [facility] HIB 4 Dose Schedule 2002 Completed [facility] 00:00:00 [facility] Hep B, Adol or Pedi 2002 Completed [facility] Dosage 00:00:00 [facility] Polio (IPV/OPV) 2002 Completed [facility] 00:00:00 [facility] DTAP 2002 Completed [facility] 00:00:00 [facility] HIB 4 Dose Schedule 2002 Completed [facility] 00:00:00 [facility] Hep B, Adol or Pedi 2002 Completed [facility] Dosage 00:00:00 [facility] Polio (IPV/OPV) 2002 Completed [facility] 00:00:00 [facility] DTAP 2002 Completed [facility] 00:00:00 [facility] HIB 4 Dose Schedule 2002 Completed [facility] 00:00:00 [facility] Hep B, Adol or Pedi 2002 Completed [facility] Dosage 00:00:00 [facility] Polio (IPV/OPV) 2002 Completed [facility] 00:00:00 [facility] DTAP 2002 Completed [facility] 00:00:00 [facility] HIB 4 Dose Schedule 2002 Completed [facility] 00:00:00 [facility] Hep B, Adol or Pedi 2002 Completed [facility] Dosage 00:00:00 [facility] Polio (IPV/OPV) 2002 Completed [facility] 00:00:00 [facility] DTAP 2002 Completed [facility] 00:00:00 [facility] HIB 4 Dose Schedule 2002 Completed [facility] 00:00:00 [facility] Hep B, Adol or Pedi 2002 Completed [facility] Dosage 00:00:00 [facility] Polio (IPV/OPV) 2002 Completed [facility] 00:00:00 [facility] DTAP 2002 Completed [facility] 00:00:00 [facility] HIB 4 Dose Schedule 2002 Completed [facility] 00:00:00 [facility] Hep B, Adol or Pedi 2002 Completed [facility] Dosage 00:00:00 [facility] Polio (IPV/OPV) 2002 Completed [facility] 00:00:00 [facility] DTAP 2002 Completed [facility] 00:00:00 [facility] HIB 4 Dose Schedule 2002 Completed [facility] 00:00:00 [facility] Hep B, Adol or Pedi 2002 Completed [facility] Dosage 00:00:00 [facility] Polio (IPV/OPV) 2002 Completed [facility] 00:00:00 [facility] DTAP 2002 Completed [facility] 00:00:00 [facility] HIB 4 Dose Schedule 2002 Completed [facility] 00:00:00 [facility] Hep B, Adol or Pedi 2002 Completed [facility] Dosage 00:00:00 [facility] Polio (IPV/OPV) 2002 Completed [facility] 00:00:00 [facility] DTAP 2002 Completed [facility] 00:00:00 [facility] HIB 4 Dose Schedule 2002 Completed [facility] 00:00:00 [facility] Hep B, Adol or Pedi 2002 Completed [facility] Dosage 00:00:00 [facility] Polio (IPV/OPV) 2002 Completed [facility] 00:00:00 [facility] DTAP 2002 Completed [facility] 00:00:00 [facility] HIB 4 Dose Schedule 2002 Completed [facility] 00:00:00 [facility] Hep B, Adol or Pedi 2002 Completed [facility] Dosage 00:00:00 [facility] Polio (IPV/OPV) 2002 Completed [facility] 00:00:00 [facility] DTAP 2002 Completed [facility] 00:00:00 [facility] HIB 4 Dose Schedule 2002 Completed [facility] 00:00:00 [facility] Hep B, Adol or Pedi 2002 Completed [facility] Dosage 00:00:00 [facility] Polio (IPV/OPV) 2002 Completed [facility] 00:00:00 [facility] DTAP 2002 Completed [facility] 00:00:00 [facility] HIB 4 Dose Schedule 2002 Completed [facility] 00:00:00 [facility] Hep B, Adol or Pedi 2002 Completed [facility] Dosage 00:00:00 [facility] Polio (IPV/OPV) 2002 Completed [facility] 00:00:00 [facility] DTAP 2002 Completed [facility] 00:00:00 [facility] HIB 4 Dose Schedule 2002 Completed [facility] 00:00:00 [facility] Hep B, Adol or Pedi 2002 Completed [facility] Dosage 00:00:00 [facility] Polio (IPV/OPV) 2002 Completed [facility] 00:00:00 [facility] DTAP 2002 Completed [facility] 00:00:00 [facility] HIB 4 Dose Schedule 2002 Completed [facility] 00:00:00 [facility] Hep B, Adol or Pedi 2002 Completed [facility] Dosage 00:00:00 [facility] Polio (IPV/OPV) 2002 Completed [facility] 00:00:00 [facility] DTAP 2002 Completed [facility] 00:00:00 [facility] HIB 4 Dose Schedule 2002 Completed [facility] 00:00:00 [facility] Hep B, Adol or Pedi 2002 Completed [facility] Dosage 00:00:00 [facility] Polio (IPV/OPV) 2002 Completed [facility] 00:00:00 [facility] DTAP 2002 Completed [facility] 00:00:00 [facility] HIB 4 Dose Schedule 2002 Completed [facility] 00:00:00 [facility] Hep B, Adol or Pedi 2002 Completed [facility] Dosage 00:00:00 [facility] Polio (IPV/OPV) 2002 Completed [facility] 00:00:00 [facility] DTAP 2002 Completed [facility] 00:00:00 [facility] HIB 4 Dose Schedule 2002 Completed [facility] 00:00:00 [facility] Hep B, Adol or Pedi 2002 Completed [facility] Dosage 00:00:00 [facility] Polio (IPV/OPV) 2002 Completed [facility] 00:00:00 [facility] DTAP 2002 Completed [facility] 00:00:00 [facility] HIB 4 Dose Schedule 2002 Completed [facility] 00:00:00 [facility] Hep B, Adol or Pedi 2002 Completed [facility] Dosage 00:00:00 [facility] Polio (IPV/OPV) 2002 Completed [facility] 00:00:00 [facility] DTAP 2002 Completed [facility] 00:00:00 [facility] HIB 4 Dose Schedule 2002 Completed [facility] 00:00:00 [facility] Hep B, Adol or Pedi 2002 Completed [facility] Dosage 00:00:00 [facility] Polio (IPV/OPV) 2002 Completed [facility] 00:00:00 [facility] DTAP 2002 Completed [facility] 00:00:00 [facility] HIB 4 Dose Schedule 2002 Completed [facility] 00:00:00 [facility] Hep B, Adol or Pedi 2002 Completed [facility] Dosage 00:00:00 [facility] Polio (IPV/OPV) 2002 Completed [facility] 00:00:00 [facility] DTAP 2002 Completed [facility] 00:00:00 [facility] HIB 4 Dose Schedule 2002 Completed [facility] 00:00:00 [facility] Hep B, Adol or Pedi 2002 Completed [facility] Dosage 00:00:00 [facility] Polio (IPV/OPV) 2002 Completed [facility] 00:00:00 [facility] DTAP 2002 Completed [facility] 00:00:00 [facility] HIB 4 Dose Schedule 2002 Completed [facility] 00:00:00 [facility] Hep B, Adol or Pedi 2002 Completed [facility] Dosage 00:00:00 [facility] Polio (IPV/OPV) 2002 Completed [facility] 00:00:00 [facility] DTAP 2002 Completed [facility] 00:00:00 [facility] HIB 4 Dose Schedule 2002 Completed [facility] 00:00:00 [facility] Hep B, Adol or Pedi 2002 Completed [facility] Dosage 00:00:00 [facility] Polio (IPV/OPV) 2002 Completed [facility] 00:00:00 [facility] DTAP 2002 Completed [facility] 00:00:00 [facility] HIB 4 Dose Schedule 2002 Completed [facility] 00:00:00 [facility] Hep B, Adol or Pedi 2002 Completed [facility] Dosage 00:00:00 [facility] Polio (IPV/OPV) 2002 Completed [facility] 00:00:00 [facility] DTAP 2002 Completed [facility] 00:00:00 [facility] HIB 4 Dose Schedule 2002 Completed [facility] 00:00:00 [facility] Hep B, Adol or Pedi 2002 Completed [facility] Dosage 00:00:00 [facility] Polio (IPV/OPV) 2002 Completed [facility] 00:00:00 [facility] DTAP 2002 Completed [facility] 00:00:00 [facility] HIB 4 Dose Schedule 2002 Completed [facility] 00:00:00 [facility] Hep B, Adol or Pedi 2002 Completed [facility] Dosage 00:00:00 [facility] Polio (IPV/OPV) 2002 Completed [facility] 00:00:00 [facility] DTAP 2002 Completed [facility] 00:00:00 [facility] HIB 4 Dose Schedule 2002 Completed [facility] 00:00:00 [facility] Hep B, Adol or Pedi 2002 Completed [facility] Dosage 00:00:00 [facility] Polio (IPV/OPV) 2002 Completed [facility] 00:00:00 [facility] DTAP 2002 Completed [facility] 00:00:00 [facility] HIB 4 Dose Schedule 2002 Completed [facility] 00:00:00 [facility] Hep B, Adol or Pedi 2002 Completed [facility] Dosage 00:00:00 [facility] Polio (IPV/OPV) 2002 Completed [facility] 00:00:00 [facility] DTAP 2002 Completed [facility] 00:00:00 [facility] HIB 4 Dose Schedule 2002 Completed [facility] 00:00:00 [facility] Hep B, Adol or Pedi 2002 Completed [facility] Dosage 00:00:00 [facility] Polio (IPV/OPV) 2002 Completed [facility] 00:00:00 [facility] DTAP 2002 Completed [facility] 00:00:00 [facility] HIB 4 Dose Schedule 2002 Completed [facility] 00:00:00 [facility] Hep B, Adol or Pedi 2002 Completed [facility] Dosage 00:00:00 [facility] Polio (IPV/OPV) 2002 Completed [facility] 00:00:00 [facility] DTAP 2002 Completed [facility] 00:00:00 [facility] HIB 4 Dose Schedule 2002 Completed [facility] 00:00:00 [facility] Hep B, Adol or Pedi 2002 Completed [facility] Dosage 00:00:00 [facility] Polio (IPV/OPV) 2002 Completed [facility] 00:00:00 [facility] DTAP 2002 Completed [facility] 00:00:00 [facility] HIB 4 Dose Schedule 2002 Completed [facility] 00:00:00 [facility] Hep B, Adol or Pedi 2002 Completed [facility] Dosage 00:00:00 [facility] Polio (IPV/OPV) 2002 Completed [facility] 00:00:00 [facility] DTAP 2002 Completed [facility] 00:00:00 [facility] HIB 4 Dose Schedule 2002 Completed [facility] 00:00:00 [facility] Hep B, Adol or Pedi 2002 Completed [facility] Dosage 00:00:00 [facility] Polio (IPV/OPV) 2002 Completed [facility] 00:00:00 [facility] DTAP 2002 Completed [facility] 00:00:00 [facility] HIB 4 Dose Schedule 2002 Completed [facility] 00:00:00 [facility] Hep B, Adol or Pedi 2002 Completed [facility] Dosage 00:00:00 [facility] Polio (IPV/OPV) 2002 Completed [facility] 00:00:00 [facility] DTAP 2002 Completed [facility] 00:00:00 [facility] HIB 4 Dose Schedule 2002 Completed [facility] 00:00:00 [facility] Hep B, Adol or Pedi 2002 Completed [facility] Dosage 00:00:00 [facility] Polio (IPV/OPV) 2002 Completed [facility] 00:00:00 [facility] DTAP 2002 Completed [facility] 00:00:00 [facility] HIB 4 Dose Schedule 2002 Completed [facility] 00:00:00 [facility] Hep B, Adol or Pedi 2002 Completed [facility] Dosage 00:00:00 [facility] Polio (IPV/OPV) 2002 Completed [facility] 00:00:00 [facility] DTAP 2002 Completed [facility] 00:00:00 [facility] HIB 4 Dose Schedule 2002 Completed [facility] 00:00:00 [facility] Hep B, Adol or Pedi 2002 Completed [facility] Dosage 00:00:00 [facility] Polio (IPV/OPV) 2002 Completed [facility] 00:00:00 [facility] DTAP 2002 Completed [facility] 00:00:00 [facility] HIB 4 Dose Schedule 2002 Completed [facility] 00:00:00 [facility] Hep B, Adol or Pedi 2002 Completed [facility] Dosage 00:00:00 [facility] Polio (IPV/OPV) 2002 Completed [facility] 00:00:00 [facility] DTAP 2002 Completed [facility] 00:00:00 [facility] HIB 4 Dose Schedule 2002 Completed [facility] 00:00:00 [facility] Hep B, Adol or Pedi 2002 Completed [facility] Dosage 00:00:00 [facility] Polio (IPV/OPV) 2002 Completed [facility] 00:00:00 [facility] DTAP 2002 Completed [facility] 00:00:00 [facility] HIB 4 Dose Schedule 2002 Completed [facility] 00:00:00 [facility] Hep B, Adol or Pedi 2002 Completed [facility] Dosage 00:00:00 [facility] Polio (IPV/OPV) 2002 Completed [facility] 00:00:00 [facility] DTAP 2002 Completed [facility] 00:00:00 [facility] HIB 4 Dose Schedule 2002 Completed [facility] 00:00:00 [facility] Hep B, Adol or Pedi 2002 Completed [facility] Dosage 00:00:00 [facility] Polio (IPV/OPV) 2002 Completed [facility] 00:00:00 [facility] DTAP 2002 Completed [facility] 00:00:00 [facility] HIB 4 Dose Schedule 2002 Completed [facility] 00:00:00 [facility] Hep B, Adol or Pedi 2002 Completed [facility] Dosage 00:00:00 [facility] Polio (IPV/OPV) 2002 Completed [facility] 00:00:00 [facility] DTAP 2002 Completed [facility] 00:00:00 [facility] HIB 4 Dose Schedule 2002 Completed [facility] 00:00:00 [facility] Hep B, Adol or Pedi 2002 Completed [facility] Dosage 00:00:00 [facility] Polio (IPV/OPV) 2002 Completed [facility] 00:00:00 [facility] DTAP 2002 Completed [facility] 00:00:00 [facility] HIB 4 Dose Schedule 2002 Completed [facility] 00:00:00 [facility] Hep B, Adol or Pedi 2002 Completed [facility] Dosage 00:00:00 [facility] Polio (IPV/OPV) 2002 Completed [facility] 00:00:00 [facility] DTAP 2002 Completed [facility] 00:00:00 [facility] HIB 4 Dose Schedule 2002 Completed [facility] 00:00:00 [facility] Hep B, Adol or Pedi 2002 Completed [facility] Dosage 00:00:00 [facility] Polio (IPV/OPV) 2002 Completed [facility] 00:00:00 [facility] DTAP 2002 Completed [facility] 00:00:00 [facility] HIB 4 Dose Schedule 2002 Completed [facility] 00:00:00 [facility] Hep B, Adol or Pedi 2002 Completed [facility] Dosage 00:00:00 [facility] Polio (IPV/OPV) 2002 Completed [facility] 00:00:00 [facility] DTAP 2002 Completed [facility] 00:00:00 [facility] HIB 4 Dose Schedule 2002 Completed [facility] 00:00:00 [facility] Hep B, Adol or Pedi 2002 Completed [facility] Dosage 00:00:00 [facility] Polio (IPV/OPV) 2002 Completed [facility] 00:00:00 [facility] DTAP 2002 Completed [facility] 00:00:00 [facility] HIB 4 Dose Schedule 2002 Completed [facility] 00:00:00 [facility] Hep B, Adol or Pedi 2002 Completed [facility] Dosage 00:00:00 [facility] Polio (IPV/OPV) 2002 Completed [facility] 00:00:00 [facility] DTAP 2002 Completed [facility] 00:00:00 [facility] HIB 4 Dose Schedule 2002 Completed [facility] 00:00:00 [facility] Hep B, Adol or Pedi 2002 Completed [facility] Dosage 00:00:00 [facility] Polio (IPV/OPV) 2002 Completed [facility] 00:00:00 [facility] DTAP 2002 Completed [facility] 00:00:00 [facility] HIB 4 Dose Schedule 2002 Completed [facility] 00:00:00 [facility] Hep B, Adol or Pedi 2002 Completed [facility] Dosage 00:00:00 [facility] Polio (IPV/OPV) 2002 Completed [facility] 00:00:00 [facility] DTAP 2002 Completed [facility] 00:00:00 [facility] HIB 4 Dose Schedule 2002 Completed [facility] 00:00:00 [facility] Hep B, Adol or Pedi 2002 Completed [facility] Dosage 00:00:00 [facility] Polio (IPV/OPV) 2002 Completed [facility] 00:00:00 [facility] DTAP 2002 Completed [facility] 00:00:00 [facility] HIB 4 Dose Schedule 2002 Completed [facility] 00:00:00 [facility] Hep B, Adol or Pedi 2002 Completed [facility] Dosage 00:00:00 [facility] Polio (IPV/OPV) 2002 Completed [facility] 00:00:00 [facility] DTAP 2002 Completed [facility] 00:00:00 [facility] HIB 4 Dose Schedule 2002 Completed [facility] 00:00:00 [facility] Hep B, Adol or Pedi 2002 Completed [facility] Dosage 00:00:00 [facility] Polio (IPV/OPV) 2002 Completed [facility] 00:00:00 [facility] DTAP 2002 Completed [facility] 00:00:00 [facility] HIB 4 Dose Schedule 2002 Completed [facility] 00:00:00 [facility] Hep B, Adol or Pedi 2002 Completed [facility] Dosage 00:00:00 [facility] Polio (IPV/OPV) 2002 Completed [facility] 00:00:00 [facility] DTAP 2002 Completed [facility] 00:00:00 [facility] HIB 4 Dose Schedule 2002 Completed [facility] 00:00:00 [facility] Hep B, Adol or Pedi 2002 Completed [facility] Dosage 00:00:00 [facility] Polio (IPV/OPV) 2002 Completed [facility] 00:00:00 [facility] DTAP 2002 Completed [facility] 00:00:00 [facility] HIB 4 Dose Schedule 2002 Completed [facility] 00:00:00 [facility] Hep B, Adol or Pedi 2002 Completed [facility] Dosage 00:00:00 [facility] Polio (IPV/OPV) 2002 Completed [facility] 00:00:00 [facility] DTAP 2002 Completed [facility] 00:00:00 [facility] HIB 4 Dose Schedule 2002 Completed [facility] 00:00:00 [facility] Hep B, Adol or Pedi 2002 Completed [facility] Dosage 00:00:00 [facility] Polio (IPV/OPV) 2002 Completed [facility] 00:00:00 [facility] DTAP 2002 Completed [facility] 00:00:00 [facility] HIB 4 Dose Schedule 2002 Completed [facility] 00:00:00 [facility] Hep B, Adol or Pedi 2002 Completed [facility] Dosage 00:00:00 [facility] Polio (IPV/OPV) 2002 Completed [facility] 00:00:00 [facility] Hep B, Adol or Pedi 2002 Completed [facility] Dosage 00:00:00 [facility] Hep B, Adol or Pedi [...] 2002 Completed [facility] Dosage 00:00:00 [facility] Hep B, Adol or Pedi 2002 Completed [facility] Dosage 00:00:00 [facility] Hep B, Adol or Pedi 2002 Completed [facility] Dosage 00:00:00 [facility] Hep B, Adol or Pedi 2002 Completed [facility] Dosage 00:00:00 [facility] Hep B, Adol or Pedi 2002 Completed [facility] Dosage 00:00:00 [facility] Hep B, Adol or Pedi 2002 Completed [facility] Dosage 00:00:00 [facility] Hep B, Adol or Pedi 2002 Completed [facility] Dosage 00:00:00 [facility] Hep B, Adol or Pedi 2002 Completed [facility] Dosage 00:00:00 [facility] Hep B, Adol or Pedi 2002 Completed [facility] Dosage 00:00:00 [facility] HEPATITIS A Unknown Completed [facility] Influenza Virus Unknown Completed [facility] Vaccine [facility] HEPATITIS A Unknown Completed [facility] DTAP Unknown Completed [facility] Proquad Unknown Completed University (MMR/VARICELLA) [facility] Polio (IPV/OPV) Unknown Completed [facility] Influenza Virus Unknown Completed [facility] Vaccine [facility] Influenza Virus Unknown Completed [facility] Vaccine [facility] Influenza Virus Unknown Completed [facility] Vaccine [facility] Influenza Virus Unknown Completed [facility] Vaccine [facility] Influenza Virus Unknown Completed [facility] Vaccine [facility] Influenza Virus Unknown Completed [facility] Vaccine [facility] Influenza Virus Unknown Completed [facility] of Vaccine (3+ yrs) [facility] Meningococcal Unknown Completed [facility] (groups A, C, Y and Branc h W-135) conjugate vaccine (MCV4P) TDAP Unknown Completed [facility] Influenza Virus Unknown Completed Universit y of Vaccine (3+ yrs) [facility] Influenza Virus Unknown Completed [facility] y of Vaccine Quad IM 3+ [facility] HPV9 Unknown Completed [facility] HPV Unknown Completed [facility] HPV9 Unknown Completed [facility] Influenza Virus Unknown Completed [facility] y of Vaccine Quad IM 3+ [facility] YRS Branch Meningococcal Unknown Completed University of Polysaccharide [facility] (groups A, C, Y and Branc h W-135) conjugate vaccine (MCV4P) Influenza Virus Unknown Completed Universit [facility] of Vaccine Quad .5 mL [facility] IM 6+ MO Branch (FLUZONE/FLULAVAL/FL UARIX) Meningococcal B, OMV Unknown [facility] Pedi [facility] Completed [facility] Dosage [facility] Meningococcal B, OMV Unknown Completed Univ ersity [facility] Influenza Virus Unknown Completed [facility] of Vaccine Quad .5 mL [facility] IM 6+ [place] Branch (FLUZONE/FLULAVAL/FL UARIX) SARS-COV-2 COVID-19 Unknown Completed [facility]ive [facility] of PFIZER VACCINE [facility] Branch SARS-COV-2 COVID-19 Unknown Completed [facility] PFIZER VACCINE [facility] SARS-COV-2 COVID-19 Unknown Completed [facility] PFIZER VACCINE [facility] SARS-COV-2 COVID-19 Unknown Completed Unive rsity of MIKE-SUCROSE VACCINE [facility] 12 YRS+, BIVALENT Branch 0.3ML, IM, (PFIZER ARITA TOP) DTAP Unknown Completed [facility] DTAP Unknown Completed [facility] DTAP Unknown Completed [facility] HIB 4 Dose Schedule Unknown Completed Unive rsity [facility] HIB 4 Dose Schedule Unknown [facility], Adol or Pedi Unknown Completed [facility] Dosage [facility] Hep B, Adol or Pedi Unknown Completed [facility] Dosage [facility] Pneumococcal 7 Unknown Completed [place] Conjugate, PCV7 [facility] ical (Prevnar7) Branch Pneumococcal 7 Unknown Completed University of Conjugate, PCV7 [facility] ical (Prevnar7) Branch Polio (IPV/OPV) Unknown Completed Universit y [facility] Polio (IPV/OPV) Unknown Completed [facility] y [facility] HIB 4 Dose Schedule Unknown Completed Unive rsity [facility] MMR Unknown Completed [facility] Pneumococcal 7 Unknown Completed [facility] of Conjugate, PCV7 [facility] ical (Prevnar7) Branch Polio (IPV/OPV) Unknown Completed [facility] of [facility] Varicella Unknown Completed University (varivax)([facility] [place] [facility] pox) Branch HEPATITIS A Unknown Completed [facility] Influenza Virus Unknown Completed [facility] of Vaccine [facility] HEPATITIS A Unknown Completed [facility] DTAP Unknown Completed [facility] Proquad Unknown Completed University (MMR/VARICELLA) [facility] ica Branch Polio (IPV/OPV) Unknown Completed [facility] of [facility] Influenza Virus Unknown Completed [facility] Vaccine [facility] Influenza Virus Unknown Completed [facility] Vaccine [facility] Influenza Virus Unknown Completed [facility] Vaccine [facility] Influenza Virus Unknown Completed [facility] Vaccine [facility] Influenza Virus Unknown Completed [facility] Vaccine [facility] Influenza Virus Unknown Completed [facility] Vaccine [facility] Influenza Virus Unknown Completed [facility] Vaccine (3+ yrs) [facility] Meningococcal Unknown Completed [facility] (groups A, C, Y and Branc h W-135) conjugate vaccine (MCV4P) TDAP Unknown Completed [facility] Influenza Virus Unknown Completed Universit y of Vaccine (3+ yrs) [facility] Influenza Virus Unknown Completed [facility] of Vaccine Quad IM 3+ [facility] HPV9 Unknown Completed [facility] HPV Unknown Completed [facility] HPV9 Unknown Completed [facility] Influenza Virus Unknown Completed [facility] of Vaccine Quad IM 3+ [facility] Meningococcal Unknown Completed [facility] (groups A, C, Y and Branc h W-135) conjugate vaccine (MCV4P) Influenza Virus Unknown Completed [facility] of Vaccine Quad .5 mL [facility] IM 6+ MO Branch (FLUZONE/FLULAVAL/FL UARIX) Meningococcal B, OMV Unknown Completed Univ ersity [facility] Hep B, Adol or Pedi Unknown Completed [facility] of Dosage [facility] Meningococcal B, OMV Unknown Completed Univ ersity [facility] Influenza Virus Unknown Completed [facility] of Vaccine Quad .5 mL [facility] IM 6+ MO Branch (FLUZONE/FLULAVAL/FL UARIX) SARS-COV-2 COVID-19 Unknown Completed [facility] of PFIZER VACCINE [facility] Branch SARS-COV-2 COVID-19 Unknown Completed [facility] PFIZER VACCINE [facility] SARS-COV-2 COVID-19 Unknown Completed [facility] of PFIZER VACCINE [facility] SARS-COV-2 COVID-19 Unknown Completed Unive rsity of MIKE-SUCROSE VACCINE [facility] 12 YRS+, BIVALENT Branch 0.3ML, IM, (PFIZER ARITA TOP) DTAP Unknown Completed [facility] DTAP Unknown Completed [facility] DTAP Unknown Completed [facility] HIB 4 Dose Schedule Unknown Completed Un[facility]ity of [facility] HIB 4 Dose Schedule Unknown Completed [facility] HIB 4 Dose Schedule Unknown Completed [facility] Hep B, Adol or Pedi Unknown Completed [facility] Dosage [facility] Hep B, Adol or Pedi Unknown Completed [facility] of Dosage [facility] Pneumococcal 7 Unknown Completed [facility] of Conjugate, PCV7 [facility] (Prevnar7) Branch Pneumococcal 7 Unknown Completed University Conjugate, PCV7 [facility] (Prevnar7) Branch Polio (IPV/OPV) Unknown Completed [facility] y [facility] Polio (IPV/OPV) Unknown Completed [facility] HIB 4 Dose Schedule [facility] Completed [facility] Pneumococcal 7 Unknown Completed [facility] of Conjugate, PCV7 [facility] (Prevnar7) Branch Polio (IPV/OPV) Unknown Completed [facility] Varicella Unknown Completed [facility] (varivax)([facility] [place] [facility] pox) Branch HEPATITIS A Unknown Completed [facility] Influenza Virus Unknown Completed Univers[facility] of [facility] HEPATITIS A Unknown Completed [facility] DTAP Unknown Completed [facility] Proquad Unknown Completed University of (MMR/VARICELLA) [facility] Polio (IPV/OPV) Unknown Completed [facility] Influenza Virus Unknown Completed [facility] of Vaccine [facility] Influenza Virus Unknown Completed [facility] of Vaccine [facility] Influenza Virus Unknown Completed [facility] Vaccine [facility] Influenza Virus Unknown Completed [facility] Vaccine [facility] Influenza Virus Unknown Completed [facility] Vaccine [facility] Influenza Virus Unknown Completed [facility] Vaccine [facility] Influenza Virus Unknown Completed Universit y of Vaccine (3+ yrs) [facility] dical Branch Meningococcal Unknown Completed [facility] of Polysaccharide [facility] (groups A, C, Y and Branc h W-135) conjugate vaccine (MCV4P) TDAP Unknown Completed [facility] Influenza Virus Unknown Completed Universit y of Vaccine (3+ yrs) [facility] dical [place] Influenza Virus Unknown Completed Universit y of Vaccine Quad IM 3+ [facility] HPV9 Unknown Completed [facility] HPV Unknown Completed [facility] HPV9 Unknown Completed [facility] Influenza Virus Unknown Completed Universit y of Vaccine Quad IM 3+ [facility] Meningococcal Unknown Completed [facility] Polysaccharide [facility] (groups A, C, Y and Branc h W-135) conjugate vaccine (MCV4P) Influenza Virus Unknown Completed Universit y of Vaccine Quad .5 mL [facility] 6+ MO Branch (FLUZONE/FLULAVAL/FL UARIX) Meningococcal B, OMV Unknown [facility], Adol or Pedi Unknown Completed Unive rsity of Dosage [facility] Meningococcal B, OMV Unknown [facility] Influ[facility] Virus Unknown Completed [facility]it y of Vaccine Quad .5 mL [facility] 6+ MO Branch (FLUZONE/FLULAVAL/FL UARIX) SARS-COV-2 COVID-19 Unknown Completed Unive rsity of PFIZER VACCINE [facility] SARS-COV-2 COVID-19 Unknown Completed Unive rsity of PFIZER VACCINE [facility] SARS-COV-2 COVID-19 Unknown Completed Unive rsity of PFIZER VACCINE [facility] SARS-COV-2 COVID-19 Unknown Completed Unive rsity of MIKE-SUCROSE VACCINE [facility] 12 YRS+, BIVALENT Branch 0.3ML, IM, (PFIZER ARITA TOP) HEPATITIS A Unknown Completed [facility] Influenza Virus Unknown Completed Universit y of Vaccine [facility] HEPATITIS A Unknown Completed [facility] DTAP Unknown Completed [facility] Proquad Unknown Completed University (MMR/VARICELLA) [facility] Polio (IPV/OPV) Unknown Completed Universit y [facility] Influenza Virus Unknown Completed [facility]it y of Vaccine [facility] Influenza Virus Unknown Completed [facility] y of Vaccine [facility] Influenza Virus Unknown Completed [facility] of Vaccine [facility] Influenza Virus Unknown Completed [facility] y of Vaccine [facility] Influenza Virus Unknown Completed [facility] of Vaccine [facility] Influenza Virus Unknown Completed [facility] of Vaccine [facility] Influenza Virus Unknown Completed [facility] y of Vaccine (3+ yrs) [facility] M[facility]ococcal Unknown Completed [facility] Polysaccharide [facility] (groups A, C, Y and Branc h W-135) conjugate vaccine (MCV4P) TDAP Unknown Completed [facility] Influenza Virus Unknown Completed [facility]it y of Vaccine (3+ yrs) [facility] Influenza Virus Unknown Completed [facility]it y of Vaccine Quad IM 3+ [facility] HPV9 Unknown Completed [facility] HPV Unknown Completed [facility] HPV9 Unknown Completed [facility] Influenza Virus Unknown Completed [facility]it y of Vaccine Quad IM 3+ [facility] Meningococcal Unknown Completed [facility] Polysaccharide [facility] (groups A, C, Y and Branc h W-135) conjugate vaccine (MCV4P) Influenza Virus Unknown Completed Universit y of Vaccine Quad .5 mL [facility] IM 6+ MO Branch (FLUZONE/FLULAVAL/FL UARIX) Meningococcal B, OMV Unknown Completed Univ ersity [facility] Hep B, Adol or Pedi Unknown Completed Unive rsity of Dosage [facility] Meningococcal B, OMV Unknown [facility] Unknown Completed [facility] y of Vaccine Quad .5 mL [facility] 6+ MO Branch (FLUZONE/FLULAVAL/FL UARIX) SARS-COV-2 COVID-19 Unknown Completed Unive rsity of PFIZER VACCINE [facility] SARS-COV-2 COVID-19 Unknown Completed Unive rsity of PFIZER VACCINE [facility] SARS-COV-2 COVID-19 Unknown Completed Unive rsity of PFIZER VACCINE [facility] SARS-COV-2 COVID-19 Unknown Completed Unive rsity of MIKE-SUCROSE VACCINE [facility] 12 YRS+, BIVALENT Branch 0.3ML, IM, (PFIZER ARITA TOP) DTAP Unknown Completed [facility] DTAP Unknown Completed [facility] DTAP Unknown Completed [facility] HIB 4 Dose Schedule Unknown Completed Unive rsity of [facility] HIB 4 Dose Schedule Unknown Completed Unive rsity of [facility] HIB 4 Dose Schedule Unknown Completed Unive rsity of [facility] Hep B, Adol or Pedi Unknown Completed Unive rsity of Dosage [facility] Hep B, Adol or Pedi Unknown Completed Unive rsity of Dosage [facility] Pneumococcal 7 Unknown Completed University of Conjugate, PCV7 [facility] (Prevnar7) Branch Pneumococcal 7 Unknown Completed [facility] of Conjugate, PCV7 [facility] (Prevnar7) Branch Polio (IPV/OPV) Unknown Completed Universit y [facility] Polio (IPV/OPV) Unknown Completed Universit y [facility] HIB 4 Dose Schedule Unknown Completed Unive rsity [facility] MMR Unknown Completed [facility] Pneumococcal 7 Unknown Completed [facility] of Conjugate, PCV7 [facility] (Prevnar7) Branch Polio (IPV/OPV) Unknown Completed Universit y [facility] Varicella Unknown Completed [facility] of (varivax)([facility] [place] [facility] pox) Branch HEPATITIS A Unknown Completed [facility] Influenza Virus Unknown Completed [facility]it y of Vaccine [facility] HEPATITIS A Unknown Completed [facility] DTAP Unknown Completed [facility] Proquad Unknown Completed [facility] of (MMR/VARICELLA) [facility] Branch Polio (IPV/OPV) Unknown Completed Universit y [facility] Influenza Virus Unknown Completed [facility]it y of Vaccine [facility] Influenza Virus Unknown Completed [facility] of Vaccine [facility] Influenza Virus Unknown Completed [facility] y of Vaccine [facility] Influenza Virus Unknown Completed [facility] y of Vaccine [facility] Influenza Virus Unknown Completed [facility] y of Vaccine [facility] Influenza Virus Unknown Completed [facility] y of Vaccine [facility] Influenza Virus Unknown Completed [facility]it y of Vaccine (3+ yrs) [facility] Meningococcal Unknown Completed [place] Polysaccharide [facility] [place] (groups A, C, Y and Branc h W-135) conjugate vaccine (MCV4P) TDAP Unknown Completed [facility] Influenza Virus Unknown Completed [facility]it y of Vaccine (3+ yrs) [facility] Influenza Virus Unknown Completed [facility] y of Vaccine Quad IM 3+ [facility] HPV9 Unknown Completed [facility] HPV Unknown Completed [facility] HPV9 Unknown Completed [facility] Influenza Virus Unknown Completed [facility]it y of Vaccine Quad IM 3+ [facility] Branch Meningococcal Unknown Completed [facility] Polys[facility] [place] [facility] (groups A, C, Y and Branc h W-135) conjugate vaccine (MCV4P) Influenza Virus Unknown Completed [facility] of Vaccine Quad .5 mL [facility] 6+ [facility] Branch (FLUZONE/FLULAVAL/FL UARIX) Meningococcal B, OMV Unknown Completed Univ ersity [facility] Hep B, Adol or Pedi Unknown Completed Unive rsity of Dosage [facility] Meningococcal B, OMV Unknown Completed Univ ersity [facility] Influenza Virus Unknown Completed Universit y of Vaccine Quad .5 mL [facility] IM 6+ MO Branch (FLUZONE/FLULAVAL/FL UARIX) SARS-COV-2 COVID-19 Unknown Completed Unive rsity of PFIZER VACCINE [facility] Branch SARS-COV-2 COVID-19 Unknown Completed Unive rsity of PFIZER VACCINE [facility] Branch SARS-COV-2 COVID-19 Unknown Completed Unive rsity of PFIZER VACCINE [facility] Branch SARS-COV-2 COVID-19 Unknown Completed Unive rsity of MIKE-SUCROSE VACCINE [facility] 12 YRS+, BIVALENT Branch 0.3ML, IM, (PFIZER ARITA TOP) HEPATITIS A Unknown Completed [facility] Influenza Virus Unknown Completed [facility]it y of Vaccine [facility] HEPATITIS A Unknown Completed [facility] DTAP Unknown Completed [facility] Proquad Unknown Completed [facility] of (MMR/VARICELLA) [facility] Polio (IPV/OPV) Unknown Completed Universit y of [facility] Influenza Virus Unknown Completed [facility] y of Vaccine [facility] Influenza Virus Unknown Completed [facility] y of Vaccine [facility] Influenza Virus Unknown Completed [facility] y of Vaccine [facility] Influenza Virus Unknown Completed [facility] y of Vaccine [facility] Influenza Virus Unknown Completed [facility] y of Vaccine [facility] Influenza Virus Unknown Completed [facility]it y of Vaccine [facility] Influenza Virus Unknown Completed Universit y of Vaccine (3+ yrs) [facility] Meningococcal Unknown Completed [facility] (groups A, C, Y and Branc h W-135) conjugate vaccine (MCV4P) TDAP Unknown Completed [facility] Influenza Virus Unknown Completed Universit y of Vaccine (3+ yrs) [facility] Influenza Virus Unknown Completed Universit y of Vaccine Quad IM 3+ [facility] HPV9 Unknown Completed [facility] HPV Unknown Completed [facility] HPV9 Unknown Completed [facility] Influenza Virus Unknown Completed [facility] y of Vaccine Quad IM 3+ [facility] YRS Branch Meningococcal Unknown Completed [facility] Polysaccharide [facility] [place] (groups A, C, Y and Branc h W-135) conjugate vaccine (MCV4P) Influenza Virus Unknown Completed Universit y of Vaccine Quad .5 mL [facility] IM 6+ MO Branch (FLUZONE/FLULAVAL/FL UARIX) Meningococcal B, OMV Unknown Completed Univ ersity [facility] Hep B, Adol or Pedi Unknown Completed Unive rsity of Dosage [facility] Meningococcal B, OMV Unknown Completed Univ ersity of [facility] Influenza Virus Unknown Completed Universit y of Vaccine Quad .5 mL [facility] IM 6+ MO Branch (FLUZONE/FLULAVAL/FL UARIX) SARS-COV-2 COVID-19 Unknown Completed Unive rsity of PFIZER VACCINE [facility] Branch SARS-COV-2 COVID-19 Unknown Completed Unive rsity of PFIZER VACCINE [facility] Branch SARS-COV-2 COVID-19 Unknown Completed Unive rsity of PFIZER VACCINE [facility] Branch SARS-COV-2 COVID-19 Unknown Completed Unive rsity of MIKE-SUCROSE VACCINE [facility] 12 YRS+, BIVALENT Branch 0.3ML, IM, (PFIZER ARITA TOP) HEPATITIS A Unknown Completed [facility] Influenza Virus Unknown Completed [facility]it y of Vaccine [facility] HEPATITIS A Unknown Completed [facility] DTAP Unknown Completed [facility] Proquad Unknown Completed University of (MMR/VARICELLA) [facility] Polio (IPV/OPV) Unknown Completed Universit y of [facility] Influenza Virus Unknown Completed [facility]it y of Vaccine [facility] Influenza Virus Unknown Completed [facility] y of Vaccine [facility] Influenza Virus Unknown Completed [facility] y of Vaccine [facility] Influenza Virus Unknown Completed [facility] y of Vaccine [facility] Influenza Virus Unknown Completed [facility] y of Vaccine [facility] Influenza Virus Unknown Completed [facility]it y of Vaccine [facility] Influenza Virus Unknown Completed Universit y of Vaccine (3+ yrs) [facility] dical [place] Meningococcal Unknown Completed University Polysaccharide [facility] (groups A, C, Y and Branc h W-135) conjugate vaccine (MCV4P) TDAP Unknown Completed [facility] Influenza Virus Unknown Completed Universit y of Vaccine (3+ yrs) [facility] Influenza Virus Unknown Completed Universit y of Vaccine Quad IM 3+ [facility] Branch HPV9 Unknown Completed [facility] HPV Unknown Completed [facility] HPV9 Unknown Completed [facility] Influenza Virus Unknown Completed Universit y of Vaccine Quad IM 3+ [facility] YRS Branch Meningococcal Unknown Completed [facility] (groups A, C, Y and Branc h W-135) conjugate vaccine (MCV4P) Influenza Virus Unknown Completed Universit y of Vaccine Quad .5 mL [facility] IM 6+ MO Branch (FLUZONE/FLULAVAL/FL UARIX) Meningococcal B, OMV Unknown Completed Univ ersity [facility] Hep B, Adol or Pedi Unknown Completed Unive rsity of Dosage [facility] Meningococcal B, OMV Unknown Completed Univ ersity [facility] Influenza Virus Unknown Completed Universit y of Vaccine Quad .5 mL [facility] IM 6+ MO Branch (FLUZONE/FLULAVAL/FL UARIX) SARS-COV-2 COVID-19 Unknown Completed Unive rsity of PFIZER VACCINE [facility] Branch SARS-COV-2 COVID-19 Unknown Completed Unive rsity of PFIZER VACCINE [facility] Branch SARS-COV-2 COVID-19 Unknown Completed Unive rsity of PFIZER VACCINE [facility] Branch SARS-COV-2 COVID-19 Unknown Completed Unive rsity of MIKE-SUCROSE VACCINE [facility] 12 YRS+, BIVALENT Branch 0.3ML, IM, (PFIZER ARITA TOP) DTAP Unknown Completed [facility] DTAP Unknown Completed [facility] DTAP Unknown Completed [facility] HIB 4 Dose Schedule Unknown Completed Unive rsity [facility] HIB 4 Dose Schedule Unknown [facility] Dose Schedule Unknown Completed Unive rsity [facility] Hep B, Adol or Pedi Unknown Completed Unive rsity of Dosage [facility] Hep B, Adol or Pedi Unknown Completed Unive rsity of Dosage [facility] Pneumococcal [address] [facility] Conjugate, PCV7 [facility] ical (Prevnar7) Branch Pneumococcal [address] [facility] Conjugate, PCV7 [facility] ical (Prevnar7) Branch Polio (IPV/OPV) Unknown Completed Universit y [facility] Polio (IPV/OPV) Unknown Completed Universit y [facility] HIB 4 Dose Schedule Unknown [facility] M[facility] Completed [facility] Pneumococcal 7 Unknown Completed University Conjugate, PCV7 [facility] (Prevnar7) Branch Polio (IPV/OPV) Unknown Completed Universit y [facility] Varicella Unknown Completed University (varivax)(chicken [place] [facility] ed[facility] pox) Branch HEPATITIS A Unknown Completed [facility] Influenza Virus Unknown Completed Universit y of Vaccine [facility] HEPATITIS A Unknown Completed [facility] DTAP Unknown Completed [facility] Proquad Unknown Completed University of (MMR/VARICELLA) [facility] Branch Polio (IPV/OPV) Unknown Completed Universit y of [facility] Influenza Virus Unknown Completed Universit y of Vaccine [facility] Influenza Virus Unknown Completed [facility] y of Vaccine [facility] Influenza Virus Unknown Completed [facility] y of Vaccine [facility] Influenza Virus Unknown Completed [facility] y of Vaccine [facility] Influenza Virus Unknown Completed [facility] y of Vaccine [facility] Influenza Virus Unknown Completed [facility] y of Vaccine [facility] Influenza Virus Unknown Completed Universit y of Vaccine (3+ yrs) [facility] Meningococcal Unknown Completed [facility] (groups A, C, Y and Branc h W-135) conjugate vaccine (MCV4P) TDAP Unknown Completed [facility] Influenza Virus Unknown Completed Universit y of Vaccine (3+ yrs) [facility] Influenza Virus Unknown Completed Universit y of Vaccine Quad IM 3+ [facility] Branch HPV9 Unknown Completed [facility] HPV Unknown Completed [facility] HPV9 Unknown Completed [facility] Influenza Virus Unknown Completed Universit y of Vaccine Quad IM 3+ [facility] Branch Meningococcal Unknown Completed [facility] (groups A, C, Y and Branc h W-135) conjugate vaccine (MCV4P) Influenza Virus Unknown Completed Universit y of Vaccine Quad .5 mL [facility] IM 6+ MO Branch (FLUZONE/FLULAVAL/FL UARIX) Meningococcal B, OMV Unknown Completed Univ ersity [facility] Hep B, Adol or Pedi Unknown Completed Unive rsity of Dosage [facility] Meningococcal B, OMV Unknown Completed Univ ersity [facility] Influenza Virus Unknown Completed Universit y of Vaccine Quad .5 mL [facility] IM 6+ MO Branch (FLUZONE/FLULAVAL/FL UARIX) SARS-COV-2 COVID-19 Unknown Completed Unive rsity of PFIZER VACCINE [facility] SARS-COV-2 COVID-19 Unknown Completed Unive rsity of PFIZER VACCINE [facility] SARS-COV-2 COVID-19 Unknown Completed Unive rsity of PFIZER VACCINE [facility] SARS-COV-2 COVID-19 Unknown Completed Unive rsity of MIKE-SUCROSE VACCINE Michelle lopez [facility] 12 YRS+, BIVALENT Branch 0.3ML, IM, (PFIZER ARITA TOP) DTAP Unknown Completed [facility] DTAP Unknown Completed [facility] DTAP Unknown Completed [facility] HIB 4 Dose Schedule Unknown Completed Unive rsity of [facility] HIB 4 Dose Schedule Unknown Completed Unive rsity of [facility] HIB 4 Dose Schedule Unknown Completed Unive rsity [facility] Hep B, Adol or Pedi Unknown Completed Unive rsity of Dosage [facility] Hep B, Adol or Pedi Unknown Completed Unive rsity of Dosage [facility] Pneumococcal 7 Unknown Completed [place] Conjugate, PCV7 [facility] (Prevn[facility]7) Branch Pneumococcal 7 Unknown Completed University Conjugate, PCV7 [facility] (Prevnar7) Branch Polio (IPV/OPV) Unknown Completed Universit y [facility] Polio (IPV/OPV) [facility] HIB 4 Dose Schedule Unknown Completed Unive [facility] MMR Unknown Completed [facility] Pneumococcal 7 Unknown Completed University of Conjugate, PCV7 [facility] (Prevnar7) Branch Polio (IPV/OPV) Unknown Completed Universit y [facility] Varicella Unknown Completed [facility] of (varivax)(chicken [place] [facility] ed[facility] pox) Branch HEPATITIS A Unknown Completed [facility] Influenza Virus Unknown Completed Universit y of [facility] HEPATITIS A Unknown Completed [facility] DTAP Unknown Completed [facility] Proquad Unknown Completed University of (MMR/VARICELLA) [facility] Branch Polio (IPV/OPV) Unknown Completed Universit y [facility] Influenza Virus Unknown Completed Universit y of Vaccine [facility] Influenza Virus Unknown Completed Universit y of [facility] Influenza Virus Unknown Completed Universit y of [facility] Influenza Virus Unknown Completed Universit y of Vaccine [facility] Influenza Virus Unknown Completed Universit y of Vaccine [facility] Influenza Virus Unknown Completed [facility]it y of Vaccine [facility] Influenza Virus Unknown Completed Universit y of Vaccine (3+ yrs) [facility] Meningococcal Unknown Completed [facility] Polysaccharide [facility] (groups A, C, Y and Branc h W-135) conjugate vaccine (MCV4P) TDAP Unknown Completed [facility] Influenza Virus Unknown Completed Universit y of Vaccine (3+ yrs) [facility] Influenza Virus Unknown Completed Universit y of Vaccine Quad IM 3+ [facility] HPV9 Unknown Completed [facility] HPV Unknown Completed [facility] HPV9 Unknown Completed [facility] Influenza Virus Unknown Completed Universit y of Vaccine Quad IM 3+ [facility] Meningococcal Unknown Completed [facility] Polysaccharide [facility] (groups A, C, Y and Branc h W-135) conjugate vaccine (MCV4P) Influenza Virus Unknown Completed Universit y of Vaccine Quad .5 mL [facility] IM 6+ MO Branch (FLUZONE/FLULAVAL/FL UARIX) Meningococcal B, OMV Unknown [facility], Adol or Pedi Unknown Completed Unive rsity of Dosage [facility] Meningococcal B, OMV Unknown Com[facility] Influenza Virus Unknown Completed Universit y of Vaccine Quad .5 mL [facility] IM 6+ MO Branch (FLUZONE/FLULAVAL/FL UARIX) SARS-COV-2 COVID-19 Unknown Completed Unive rsity of PFIZER VACCINE [facility] SARS-COV-2 COVID-19 Unknown Completed Unive rsity of PFIZER VACCINE [facility] SARS-COV-2 COVID-19 Unknown Completed Unive rsity of PFIZER VACCINE [facility] SARS-COV-2 COVID-19 Unknown Completed Unive rsity of MIKE-SUCROSE VACCINE [facility] 12 YRS+, BIVALENT Branch 0.3ML, IM, (PFIZER ARITA TOP) DTAP Unknown Completed [facility] DTAP Unknown Completed [facility] DTAP Unknown Completed [facility] HIB 4 Dose Schedule Unknown Completed Unive rsity [facility] HIB 4 Dose Schedule Unknown Com[facility] HIB 4 Dose Schedule Unknown Completed Unive rsity [facility] Hep B, Adol or Pedi Unknown Completed Unive rsity of [facility] [place] Hep B, Adol or Pedi Unknown Completed Unive rsity of Dosage [facility] [place] Pneumococcal 7 Unknown Completed University of Conjugate, PCV7 [facility] (Prevnar7) Branch Pneumococcal 7 Unknown Completed University of Conjugate, PCV7 [facility] (Prevnar7) Branch Polio (IPV/OPV) Unknown Completed Universit y [facility] Polio (IPV/OPV) Unknown Completed Universit [facility] HIB 4 Dose Schedule Unknown Completed Unive rsity [facility] MMR Unknown Completed [facility] Pneumococcal 7 Unknown Completed University of Conjugate, PCV7 [facility] (Prevnar7) Branch Polio (IPV/OPV) Unknown Completed Universit y [facility] Varicella Unknown Completed University (varivax)(chicken [place] [facility] pox) Branch HEPATITIS A Unknown Completed [facility] Influenza Virus Unknown Completed Universit y of Vaccine [facility] [place] HEPATITIS A Unknown Completed [facility] DTAP Unknown Completed [facility] Proquad Unknown Completed University of (MMR/VARICELLA) [facility] Branch Polio (IPV/OPV) Unknown Completed Universit y [facility] Influenza Virus Unknown Completed Universit y of Vaccine [facility] [place] Influenza Virus Unknown Completed Universit y of Vaccine [facility] [place] Influenza Virus Unknown Completed Universit y of Vaccine [facility] [place] Influenza Virus Unknown Completed Universit y of Vaccine [facility] [place] Influenza Virus Unknown Completed Universit y of Vaccine [facility] [place] Influenza Virus Unknown Completed Universit y of Vaccine [facility] [place] Influenza Virus Unknown Completed Universit y of Vaccine (3+ yrs) [facility] dical [place] Meningococcal Unknown Completed [facility] Polysaccharide [facility] torito (groups A, C, Y and Branc h W-135) conjugate vaccine (MCV4P) TDAP Unknown Completed [facility] Influenza Virus Unknown Completed Universit y of Vaccine (3+ yrs) [facility] Virus Unknown Completed Universit y of Vaccine Quad IM 3+ [facility] HPV9 Unknown Completed [facility] HPV Unknown Completed [facility] HPV9 Unknown Completed [facility] Influenza Virus Unknown Completed Universit y of Vaccine Quad IM 3+ [facility] Meningococcal Unknown Completed University Polysaccharide [facility] torito (groups A, C, Y and Branc h W-135) conjugate vaccine (MCV4P) Influenza Virus Unknown Completed Universit y of Vaccine Quad .5 mL [facility] 6+ MO Branch (FLUZONE/FLULAVAL/FL UARIX) Meningococcal B, OMV Unknown Completed Univ ersity [facility] Hep B, Adol or Pedi Unknown Completed Unive rsity of Dosage [facility] [place] Meningococcal B, OMV Unknown Completed Univ ersity of [facility] [place] Influenza Virus Unknown Completed Universit y of Vaccine Quad .5 mL [facility] IM 6+ [place] Branch (FLUZONE/FLULAVAL/FL UARIX) SARS-COV-2 COVID-19 Unknown Completed Unive rsity of PFIZER VACCINE [facility] torito Branch SARS-COV-2 COVID-19 Unknown Completed Unive rsity of PFIZER VACCINE [facility] Branch SARS-COV-2 COVID-19 Unknown Completed Unive rsity of PFIZER VACCINE [facility] Branch SARS-COV-2 COVID-19 Unknown Completed Unive rsity of MIKE-SUCROSE VACCINE [facility] 12 YRS+, BIVALENT Branch 0.3ML, IM, (PFIZER ARITA TOP) DTAP Unknown Completed [facility] DTAP Unknown Completed [facility] DTAP Unknown Completed [facility] HIB 4 Dose Schedule Unknown Completed Unive rsity of [facility] [place] HIB 4 Dose Schedule Unknown Completed Unive rsity of [facility] [place] HIB 4 Dose Schedule Unknown [facility], Ad[facility] or Pedi Unknown Completed Unive rsity of Dosage [facility] [place] Hep B, Adol or Pedi Unknown Completed Unive rsity of Dosage [facility] [place] Pneumococcal 7 Unknown Completed University of Conjugate, PCV7 [facility] (Prevnar7) Branch Pneumococcal 7 Unknown Completed [place] Conjugate, PCV7 [facility] (Prevnar7) Branch Polio (IPV/OPV) [facility] Polio (IPV/OPV) Unknown Completed [facility] HIB 4 Dose Schedule Unknown Completed Unive [facility] MMR Unknown Completed [facility] Pneumococcal 7 Unknown Completed University of Conjugate, PCV7 [facility] (Prevnar7) Branch Polio (IPV/OPV) Unknown Completed [facility] y [facility] Varicella Unknown Completed University of (varivax)(chicken [place] [facility] pox) Branch HEPATITIS A Unknown Completed [facility] Influenza Virus Unknown Completed Universit y of Vaccine [facility] [place] HEPATITIS A Unknown Completed [facility] DTAP Unknown Completed [facility] Proquad Unknown Completed University of (MMR/VARICELLA) [facility] Polio (IPV/OPV) Unknown Completed Universit y of [facility] [place] Influenza Virus Unknown Completed Universit y of Vaccine [facility] [place] Influenza Virus Unknown Completed Universit y of Vaccine [facility] [place] Influenza Virus Unknown Completed Universit y of Vaccine [facility] [place] Influenza Virus Unknown Completed Universit y of Vaccine [facility] [place] Influenza Virus Unknown Completed Universit y of Vaccine [facility] [place] Influenza Virus Unknown Completed Universit y of Vaccine [facility] [place] Influenza Virus Unknown Completed Universit y of Vaccine (3+ yrs) [facility] Meningococcal Unknown Completed [facility] Polysaccharide [facility] (groups A, C, Y and Branc h W-135) conjugate vaccine (MCV4P) TDAP Unknown Completed [facility] Influenza Virus Unknown Completed Universit y of Vaccine (3+ yrs) [facility] Influenza Virus Unknown Completed Universit y of Vaccine Quad IM 3+ [facility] HPV9 Unknown Completed [facility] HPV Unknown Completed [facility] HPV9 Unknown Completed [facility] Influenza Virus Unknown Completed Universit y of Vaccine Quad IM 3+ [facility] Meningococcal Unknown Completed [facility] Polysaccharide [facility] (groups A, C, Y and Branc h W-135) conjugate vaccine (MCV4P) Influenza Virus Unknown Completed Universit y of Vaccine Quad .5 mL [facility] IM 6+ [place] Branch (FLUZONE/FLULAVAL/FL UARIX) Meningococcal B, OMV Unknown [facility], Adol or Pedi Unknown Completed Unive rsity of Dosage [facility] [place] Meningococcal B, OMV Unknown Completed Univ ersity [facility] Influenza Virus Unknown Completed Universit y of Vaccine Quad .5 mL [facility] IM 6+ [place] Branch (FLUZONE/FLULAVAL/FL UARIX) SARS-COV-2 COVID-19 Unknown Completed Unive rsity of PFIZER VACCINE [facility] SARS-COV-2 COVID-19 Unknown Completed Unive rsity of PFIZER VACCINE [facility] SARS-COV-2 COVID-19 Unknown Completed Unive rsity of PFIZER VACCINE [facility] SARS-COV-2 COVID-19 Unknown Completed Unive rsity of MIKE-SUCROSE VACCINE [facility] 12 YRS+, BIVALENT Branch 0.3ML, IM, (PFIZER ARITA TOP) Vital Signs Vital Name Observation Time Observation Value Comments Source Body temperature 2022-12-15 36.44 [place] University of 15:53:00 [facility] [place] Body weight 2022-12-15 52.39 kg University of 15:53:00 [facility] [place] Systolic blood 2022-11-25 109 mm[Hg] University of pressure 13:50:00 [facility] [place] Diastolic blood 2022-11-25 76 mm[Hg] University o f pressure 13:50:00 [facility] [place] Heart rate 2022-11-25 89 /min University of 13:50:00 [facility] [place] Respiratory rate 2022-11-25 18 /min University of 13:50:00 [facility] [place] Body height 2022-11-25 160 cm University of 13:50:00 [facility] [place] Body weight 2022-11-25 53.071 kg University of 13:50:00 [facility] [place] BMI 2022-11-25 20.73 kg/m2 University of 13:50:00 [facility] [place] Body temperature 2022-06-16 35.83 [place] University of 17:18:00 [facility] [place] Body height 2022-06-16 160 cm University of 17:18:00 [facility] [place] Body weight 2022-06-16 50.44 kg University of 17:18:00 [facility] [place] BMI 2022-06-16 19.70 kg/m2 University of 17:18:00 [facility] [place] Systolic blood 2022-06-01 94 mm[Hg] erp informed, University o f pressure 05:18:00 asymptomatic [facility] [place] Diastolic blood 2022-06-01 71 mm[Hg] erp informed, University of pressure 05:18:00 asymptomatic [facility] [place] Heart rate 2022-06-01 85 /min University of 05:18:00 [facility] [place] Respiratory rate 2022-06-01 18 /min University of 05:18:00 [facility] [place] Oxygen saturation 2022-06-01 100 /min [facility] in Arterial blood 05:18:00 [facility] by Pulse oximetry [place] Body temperature 2022-06-01 36.5 [place] of 04:31:00 [facility] [place] Body height 2022-06-01 160 cm University of 04:31:00 [facility] [place] Body weight 2022-06-01 51.256 kg University of :31:00 [facility] [place] BMI 2022-06-01 20.02 kg/m2 University of :31:00 [facility] [place] Body temperature 2022-05-19 36.28 [place] University of 18:10:00 [facility] [place] Body weight 2022-05-19 51.256 kg University of 18:10:00 [facility] [place] BMI 2022-05-19 20.02 kg/m2 University of 18:10:00 [facility] [place] Body temperature 2022-04-21 36.22 [place] University of 20:32:00 [facility] [place] Body height 2022-04-21 160 cm University of 20:32:00 [facility] [place] Body weight 2022-04-21 50.349 kg University of 20:32:00 [facility] [place] BMI 2022-04-21 19.66 kg/m2 University of 20:32:00 [facility] [place] Systolic blood 2022-04-11 110 mm[Hg] University of pressure 03:10:00 [facility] [place] Diastolic blood 2022-04-11 73 mm[Hg] University o f pressure 03:10:00 [facility] [place] Heart rate 2022-04-11 88 /min University of 03:10:00 [facility] [place] Respiratory rate 2022-04-11 18 /min University of 03:10:00 [facility] [place] Oxygen saturation 2022-04-11 100 /min [facility] in Arterial blood 03:10:00 [facility] by Pulse oximetry [place] Body temperature 2022-04-10 36.28 [place] University of 22:10:00 [facility] [place] Body weight 2022-04-10 49.896 kg University of 22:10:00 [facility] [place] BMI 2022-04-10 19.80 kg/m2 University of 22:10:00 [facility] [place] Systolic blood 2022-04-10 108 mm[Hg] University of pressure 21:48:00 [facility] [place] Diastolic blood 2022-04-10 75 mm[Hg] University o f pressure 21:48:00 [facility] [place] Heart rate 2022-04-10 127 /min University of 21:48:00 [facility] [place] Body temperature 2022-04-10 36.61 [place] University of 21:48:00 [facility] [place] Respiratory rate 2022-04-10 17 /min University of 21:48:00 [facility] [place] Body height 2022-04-10 158.8 cm University of 21:48:00 [facility] [place] Body weight 2022-04-10 49.896 kg University of 21:48:00 [facility] [place] BMI 2022-04-10 19.80 kg/m2 University of 21:48:00 [facility] Branch Oxygen saturation 2022-04-10 98 /min University of in Arterial blood 21:48:00 [place] [facility] by Pulse oximetry Branch Systolic blood 2022-04-07 104 mm[Hg] University of pressure 18:00:00 [facility] Diastolic blood 2022-04-07 58 mm[Hg] University o f pressure 18:00:00 [facility] Heart rate 2022-04-07 64 /min University of 18:00:00 [facility] [place] Body temperature 2022-04-07 36.39 [place] [facility] of 18:00:00 [facility] Respiratory rate 2022-04-07 18 /min University of 18:00:00 [facility] Oxygen saturation 2022-04-07 96 /min University of in Arterial blood 18:00:00 [facility] torito by Pulse oximetry Branch Body height 2022-04-04 161.3 cm University of 23:00:18 [facility] [place] Body weight 2022-04-04 50.349 kg University of 23:00:18 [facility] [place] BMI 2022-04-04 19.35 kg/m2 University of 23:00:18 [facility] [place] Heart rate 2022-04-04 109 /min University of 21:03:00 [facility] [place] Body temperature 2022-04-04 37.72 [place] University of 21:03:00 [facility] [place] Respiratory rate 2022-04-04 18 /min University of 21:03:00 [facility] [place] Oxygen saturation 2022-04-04 95 /min University of in Arterial blood 21:03:00 [facility] tor[place] by Pulse oximetry Branch Systolic blood 2022-04-04 98 mm[Hg] University of pressure 21:00:00 [facility] Diastolic blood 2022-04-04 64 mm[Hg] University o f pressure 21:00:00 [facility] [place] Body height 2022-04-04 162.6 cm University of 17:44:00 [facility] [place] Body weight 2022-04-04 50.349 kg University of 17:44:00 [facility] [place] BMI 2022-04-04 19.05 kg/m2 University of 17:44:00 [facility] [place] Systolic blood 2022-04-01 118 mm[Hg] University of pressure 06:00:00 [facility] Diastolic blood 2022-04-01 92 mm[Hg] University o f pressure 06:00:00 [facility] [place] Heart rate 2022-04-01 78 /min University of 06:00:00 [facility] [place] Respiratory rate 2022-04-01 16 /min University of 06:00:00 [facility] [place] Oxygen saturation 2022-04-01 98 /min [facility] in Arterial blood 06:00:00 [facility] by Pulse oximetry [place] Body height 2022-04-01 160 cm [place] of 03:48:00 [facility] [place] Body weight 2022-04-01 56.7 kg University of 03:48:00 [facility] [place] BMI 2022-04-01 22.14 kg/m2 University of 03:48:00 [facility] [place] Height 2020-09-25 165.1 CM 23:56:00 Weight 2020-09-25 2.69 KG 23:56:00 Systolic blood 2023-04-18 117 mm[Hg] University of pressure 19:50:00 [facility] [place] Diastolic blood 2023-04-18 79 mm[Hg] University o f pressure 19:50:00 [facility] [place] Heart rate 2023-04-18 104 /min University of 19:50:00 [facility] [place] Respiratory rate 2023-04-18 18 /min University of 19:50:00 [facility] [place] Body height 2023-04-18 160 cm University of 19:50:00 [facility] [place] Body weight 2023-04-18 57.335 kg University of 19:50:00 [facility] [place] BMI 2023-04-18 22.39 kg/m2 University of 19:50:00 [facility] [place] Systolic blood 2023-03-30 107 mm[Hg] University of pressure 19:30:00 [facility] [place] Diastolic blood 2023-03-30 75 mm[Hg] University o f pressure 19:30:00 [facility] [place] Heart rate 2023-03-30 109 /min University of 19:30:00 [facility] [place] Respiratory rate 2023-03-30 18 /min University of 19:30:00 [facility] [place] Body height 2023-03-30 160 cm University of 19:30:00 [facility] [place] Body weight 2023-03-30 55.43 kg University of 19:30:00 [facility] [place] BMI 2023-03-30 21.65 kg/m2 University of 19:30:00 [facility] Systolic blood 2023-03-16 108 mm[Hg] University of pressure 19:30:00 [facility] Diastolic blood 2023-03-16 76 mm[Hg] University o f pressure 19:30:00 [facility] Heart rate 2023-03-16 92 /min University of 19:30:00 [facility] Respiratory rate 2023-03-16 18 /min University of 19:30:00 [facility] [place] Body height 2023-03-16 160 cm University of 19:30:00 [facility] Body weight 2023-03-16 54.341 kg University of 19:30:00 [facility] BMI 2023-03-16 21.22 kg/m2 University of 19:30:00 [facility] [place] Body temperature 2022-12-15 36.44 [place] University of 15:53:00 [facility] [place] Body weight 2022-12-15 52.39 kg University of 15:53:00 [facility] [place] Systolic blood 2022-12-05 120 mm[Hg] University of pressure 13:53:00 [facility] [place] Diastolic blood 2022-12-05 79 mm[Hg] University o f pressure 13:53:00 [facility] Heart rate 2022-12-05 95 /min University of 13:53:00 [facility] Respiratory rate 2022-12-05 18 /min University of 13:53:00 [facility] Body height 2022-12-05 160 cm University of 13:53:00 [facility] [place] Body weight 2022-12-05 53.434 kg University of 13:53:00 [facility] [place] BMI 2022-12-05 20.87 kg/m2 University of 13:53:00 [facility] [place] Systolic blood 2022-11-25 109 mm[Hg] University of pressure 13:50:00 [facility] Diastolic blood 2022-11-25 76 mm[Hg] University o f pressure 13:50:00 [facility] [place] Heart rate 2022-11-25 89 /min University of 13:50:00 [facility] Respiratory rate 2022-11-25 18 /min University of 13:50:00 [facility] Body height 2022-11-25 160 cm University of 13:50:00 [facility] [place] Body weight 2022-11-25 53.071 kg University of 13:50:00 [facility] BMI 2022-11-25 20.73 kg/m2 University of 13:50:00 [facility] Systolic blood 2022-10-31 126 mm[Hg] University of pressure 14:07:00 [facility] Diastolic blood 2022-10-31 79 mm[Hg] University o f pressure 14:07:00 [facility] Heart rate 2022-10-31 93 /min University of 14:07:00 [facility] Respiratory rate 2022-10-31 18 /min University of 14:07:00 [facility] Body height 2022-10-31 160 cm University of 14:07:00 [facility] Body weight 2022-10-31 51.256 kg University of 14:07:00 [facility] BMI 2022-10-31 20.02 kg/m2 University of 14:07:00 [facility] Systolic blood 2022-09-19 108 mm[Hg] University of pressure 13:00:00 [facility] Diastolic blood 2022-09-19 83 mm[Hg] University o f pressure 13:00:00 [facility] Heart rate 2022-09-19 88 /min University of 13:00:00 [facility] Respiratory rate 2022-09-19 18 /min University of 13:00:00 [facility] Body height 2022-09-19 160 cm University of 13:00:00 [facility] Body weight 2022-09-19 51.256 kg University of 13:00:00 [facility] [place] BMI 2022-09-19 20.02 kg/m2 University of 13:00:00 [facility] Systolic blood 2022-08-22 117 mm[Hg] University of pressure 15:53:00 [facility] Diastolic blood 2022-08-22 80 mm[Hg] University o f pressure 15:53:00 [facility] Heart rate 2022-08-22 88 /min University of 15:53:00 [facility] Respiratory rate 2022-08-22 18 /min University of 15:53:00 [facility] Body height 2022-08-22 160 cm University of 15:53:00 [facility] Body weight 2022-08-22 50.803 kg University of 15:53:00 [facility] BMI 2022-08-22 19.84 kg/m2 University of 15:53:00 [facility] Systolic blood 2022-07-25 100 mm[Hg] University of pressure 14:23:00 [facility] Diastolic blood 2022-07-25 78 mm[Hg] University o f pressure 14:23:00 [facility] [place] Heart rate 2022-07-25 107 /min University of 14:23:00 [facility] Respiratory rate 2022-07-25 18 /min University of 14:23:00 [facility] [place] Body height 2022-07-25 160 cm University of 14:23:00 [facility] [place] Body weight 2022-07-25 50.803 kg University of 14:23:00 [facility] [place] BMI 2022-07-25 19.84 kg/m2 University of 14:23:00 [facility] [place] Body temperature 2022-06-16 35.83 [place] University of 17:18:00 [facility] [place] Body height 2022-06-16 160 cm University of 17:18:00 [facility] [place] Body weight 2022-06-16 50.44 kg University of 17:18:00 [facility] [place] BMI 2022-06-16 19.70 kg/m2 University of 17:18:00 [facility] [place] Systolic blood 2022-06-16 113 mm[Hg] University of pressure 16:33:00 [facility] [place] Diastolic blood 2022-06-16 79 mm[Hg] University o f pressure 16:33:00 [facility] [place] Heart rate 2022-06-16 112 /min University of 16:33:00 [facility] [place] Respiratory rate 2022-06-16 18 /min University of 16:33:00 [facility] [place] Body height 2022-06-16 160 cm University of 16:33:00 [facility] [place] Body weight 2022-06-16 51.256 kg University of 16:33:00 [facility] [place] BMI 2022-06-16 20.02 kg/m2 University of 16:33:00 [facility] [place] Systolic blood 2022-06-13 117 mm[Hg] University of pressure 16:37:00 [facility] [place] Diastolic blood 2022-06-13 85 mm[Hg] University o f pressure 16:37:00 [facility] [place] Heart rate 2022-06-13 118 /min University of 16:37:00 [facility] [place] Respiratory rate 2022-06-13 18 /min University of 16:37:00 [facility] [place] Body height 2022-06-13 160 cm University of 16:37:00 [facility] [place] Body weight 2022-06-13 50.803 kg University of 16:37:00 [facility] [place] BMI 2022-06-13 19.84 kg/m2 University of 16:37:00 [facility] [place] Oxygen saturation 2022-06-01 100 /min [facility] in Arterial blood 05:18:00 [facility] by Pulse oximetry [place] Body temperature 2022-06-01 36.5 [place] University of 04:31:00 [facility] [place] Systolic blood 2022-05-19 124 mm[Hg] University of pressure 16:06:00 [facility] [place] Diastolic blood 2022-05-19 85 mm[Hg] University o f pressure 16:06:00 [facility] [place] Heart rate 2022-05-19 103 /min University of 16:06:00 [facility] [place] Respiratory rate 2022-05-19 18 /min University of 16:06:00 [facility] [place] Body height 2022-05-19 160 cm University of 16:06:00 [facility] [place] Body weight 2022-05-19 51.256 kg University of 16:06:00 [facility] [place] BMI 2022-05-19 20.02 kg/m2 University of 16:06:00 [facility] [place] Systolic blood 2022-05-02 115 mm[Hg] University of pressure 13:53:00 [facility] [place] Diastolic blood 2022-05-02 80 mm[Hg] University o f pressure 13:53:00 [facility] [place] Heart rate 2022-05-02 103 /min University of 13:53:00 [facility] [place] Respiratory rate 2022-05-02 18 /min University of 13:53:00 [facility] [place] Body height 2022-05-02 160 cm University of 13:53:00 [facility] [place] Body weight 2022-05-02 51.256 kg University of 13:53:00 [facility] [place] BMI 2022-05-02 20.02 kg/m2 University of 13:53:00 [facility] [place] Body temperature 2022-04-21 36.22 [place] University of 20:32:00 [facility] [place] Body height 2022-04-21 160 cm University of 20:32:00 [facility] [place] Body weight 2022-04-21 50.349 kg University of 20:32:00 [facility] [place] BMI 2022-04-21 19.66 kg/m2 University of 20:32:00 [facility] [place] Systolic blood 2022-04-21 104 mm[Hg] [facility] of pressure 15:04:00 [facility] Diastolic blood 2022-04-21 71 mm[Hg] University o f pressure 15:04:00 [facility] Heart rate 2022-04-21 110 /min University of 15:04:00 [facility] Respiratory rate 2022-04-21 18 /min University of 15:04:00 [facility] Body height 2022-04-21 157.5 cm University of 15:04:00 [facility] Body weight 2022-04-21 49.896 kg University of 15:04:00 [facility] BMI 2022-04-21 20.12 kg/m2 University of 15:04:00 [facility] Systolic blood 2022-04-11 110 mm[Hg] [facility] pressure 03:10:00 [facility] Diastolic blood 2022-04-11 73 mm[Hg] University o f pressure 03:10:00 [facility] Heart rate 2022-04-11 88 /min University of 03:10:00 [facility] Respiratory rate 2022-04-11 18 /min University of 03:10:00 [facility] Oxygen saturation 2022-04-11 100 /min University of in Arterial blood 03:10:00 [facility] torito by Pulse oximetry [place] Body temperature 2022-04-10 36.28 Linda University of 22:10:00 [facility] Body weight 2022-04-10 49.896 kg University of 22:10:00 [facility] BMI 2022-04-10 19.80 kg/m2 University of 22:10:00 [facility] Body height 2022-04-10 158.8 cm University of 21:48:00 [facility] Systolic blood 2022-04-06 114 mm[Hg] [facility] pressure 13:00:00 [facility] Diastolic blood 2022-04-06 71 mm[Hg] University o f pressure 13:00:00 [facility] Heart rate 2022-04-06 92 /min University of 13:00:00 [facility] Body temperature 2022-04-06 36.78 [place] University of 13:00:00 [facility] Respiratory rate 2022-04-06 20 /min University of 13:00:00 [facility] Oxygen saturation 2022-04-06 96 /min University of in Arterial blood 13:00:00 [place] [facility] torito by Pulse oximetry Branch Body height 2022-04-04 161.3 cm University of 23:00:18 [facility] Body weight 2022-04-04 50.349 kg University of 23:00:18 [facility] BMI 2022-04-04 19.35 kg/m2 University of 23:00:18 [facility] Systolic blood 2022-03-28 116 mm[Hg] [facility] of pressure 14:54:00 [facility] Diastolic blood 2022-03-28 87 mm[Hg] University o f pressure 14:54:00 [facility] Heart rate 2022-03-28 113 /min University of 14:54:00 [facility] Respiratory rate 2022-03-28 18 /min University of 14:54:00 [facility] Body height 2022-03-28 160 cm University of 14:54:00 [facility] Body weight 2022-03-28 51.71 kg University of 14:54:00 [facility] BMI 2022-03-28 20.19 kg/m2 University of 14:54:00 [facility] Body temperature 2022-02-24 37 [place] University of 18:37:00 [facility] Body weight 2022-02-24 51.801 kg University of 18:37:00 [facility] BMI 2022-02-24 20.23 kg/m2 University of 18:37:00 [facility] Systolic blood 2022-02-21 133 mm[Hg] University of pressure 12:51:00 [facility] Diastolic blood 2022-02-21 49 mm[Hg] University o f pressure 12:51:00 [facility] Heart rate 2022-02-21 108 /min University of 12:51:00 [facility] Respiratory rate 2022-02-21 18 /min University of 12:51:00 [facility] Body height 2022-02-21 160 cm University of 12:51:00 [facility] Oxygen saturation 2022-01-24 98 /min [facility] in Arterial blood 00:45:00 [facility] torito by Pulse oximetry Branch Head 2009-07-[address] [facility] Occipital-frontal 18:51:00 [facility] circumference by [place] Tape measure Procedures Procedure Date / Time Performing Clinician Source Performed TEST, URINE 2023-03-16 20:47:00 Susan Valverde [facility] of [facility] AUTHORIZATION FOR RELEASE 2023-03-16 05:01:00 Doctor Fidel [facility] [place] [facility] AUTHORIZATION FOR RELEASE 2023-03-16 05:01:00 Doctor Fidel, [facility] [place] [facility] XR PELVIS 3+ VW 2022-12-15 15:31:00 Arnaldo [facility] XR PELVIS 3+ VW 2022-12-15 15:31:00 Arnaldo [facility] [place] EXPLOSIVES DETONATOR CLINIC ULTRASOUND 2022-11-25 05:01:00 Doctor Fidel [facility] [place] [facility] EXPLOSIVES DETONATOR CLINIC ULTRASOUND 2022-11-25 05:01:00 Doctor Rosamariasslanette, [facility] [place] [facility] PATIENT FINANCIAL 2022-10-31 14:21:09 Doctor Fidel, [facility] POLICY [place] [facility] PATIENT FINANCIAL 2022-10-31 14:21:09 Doctor Fidel, [facility] POLICY [place] [facility] AUTHORIZATION FOR RELEASE 2022-10-07 05:01:00 Doctor Fidel [facility] [place] [facility] AUTHORIZATION FOR RELEASE 2022-10-07 05:01:00 Doctor Fidel, [facility] [place] [facility] AUTHORIZATION FOR RELEASE 2022-09-06 06:01:00 Doctor Fidel [facility] [place] [facility] AUTHORIZATION FOR RELEASE 2022-09-06 06:01:00 Doctor Fidel [facility] [place] [facility] XR PELVIS 3+ VW 2022-06-16 17:07:12 Arnaldo [facility] XR PELVIS 3+ VW 2022-06-16 17:07:12 Arnaldo [facility] CONSENT/REFUSAL FOR 2022-06-01 04:17:40 Doctor Fidel [facility] DIAGNOSIS AND TREATMENT [place] [facility] CONSENT/REFUSAL FOR 2022-06-01 04:17:40 Doctor Fidel [facility] DIAGNOSIS AND TREATMENT [place] [facility] EMERGENCY SERVICES 2022-05-31 06:01:00 Doctor Fidel [facility] AGREEMENTS AND [place] [facility] AUTHORIZATIONS XR PELVIS 3+ VW 2022-05-19 16:43:54 Arnaldo [facility] XR PELVIS 3+ VW 2022-05-19 16:43:54 Arnaldo [facility] XR PELVIS 3+ VW 2022-04-21 20:26:51 Arnaldo, [facility] XR HIPS 3 VW RIGHT 2022-04-11 02:02:47 Venkat [facility] XR PELVIS <3 VW 2022-04-11 02:02:47 Venkat [facility] XR PELVIS <3 VW 2022-04-11 02:02:47 Venkat [facility] XR HIPS 3 VW RIGHT 2022-04-11 02:02:47 Venkat [facility] POCT TEST 2022-04-11 01:46:00 [facility] 2022-04-11 01:46:00 Venkat [facility] URINALYSIS 2022-04-11 01:45:00 Venkat [facility] URINALYSIS 2022-04-11 01:45:00 Veknat [facility] COMP. METABOLIC PANEL 2022-04-10 23:02:00 Irasema Robledo [facility] ([id number]) [facility] CBC WITH DIFF 2022-04-10 23:02:00 Venkat [facility] CBC WITH DIFF 2022-04-10 23:02:00 Venkat [facility] COMP. METABOLIC PANEL 2022-04-10 23:02:00 Irasema Robledo [facility] ([id number]) Medical Branch EMERGENCY SERVICES 2022-04-10 05:01:00 Doctor Unassigned, [facility] AGREEMENTS AND [place] [facility] AUTHORIZATIONS EMERGENCY DEPARTMENT 2022-04-10 05:01:00 Doctor Unassigned, [facility] DOCUMENTS [place] [facility] XR CLAVICLE COMP 2022-04-05 19:40:00 Lobo Castano [facility] BILATERAL Medical Branch XR CLAVICLE COMP 2022-04-05 19:40:00 Lobo Castano [facility] BILATERAL [facility] URINALYSIS 2022-04-05 11:07:00 Pillo Garza [facility] URINALYSIS 2022-04-05 11:07:00 Pillo Garza [facility] CBC WITH DIFF 2022-04-05 10:24:00 Jimena Ny [facility] BASIC METABOLIC PANEL 2022-04-05 10:24:00 AnantJimena lopez [facility] (NA, K, CL, CO2, GLUCOSE, [facility] BUN, CREATININE, CA) BASIC METABOLIC PANEL 2022-04-05 10:24:00 Jimena Ny [facility] (NA, K, CL, CO2, GLUCOSE, [facility] BUN, CREATININE, CA) CBC WITH DIFF 2022-04-05 10:24:00 Jimena Ny [facility] COVID-19 (ID NOW RAPID 2022-04-05 00:38:00 AnantJimena lopez [facility] TESTING) [facility] LAB ONLY COVID 2022-04-05 00:38:00 Jimena Ny [facility] INTERPRETATION [employer] [employer] [facility] COVID-19 (ID NOW RAPID 2022-04-05 00:38:00 AnantJimena lopez [facility] TESTING) [facility] LAB ONLY COVID 2022-04-05 00:38:00 Jimena Ny [facility] INTERPRETATION [employer] TROPONIN I 2022-04-05 00:25:00 Chou [facility] Andrea TROPONIN I 2022-04-05 00:25:00 Chou [facility] Andrea XR SHOULDER 2+ VW RIGHT 2022-04-05 00:11:[address] [facility] Andrea XR KNEE 3 VW LEFT 2022-04-05 00:11:00 Chou de [facility] Andrea XR FOOT 3+ VW LEFT 2022-04-05 00:11:00 Chou [facility] Andrea XR PELVIS 3+ VW 2022-04-05 00:11:00 Flo [facility] Medical [place] XR KNEE <3 VW RIGHT 2022-04-05 00:11:00 Flo [facility] Medical [place] XR FOOT 3+ VW LEFT 2022-04-05 00:11:00 Chou [facility] Andrea XR KNEE <3 VW RIGHT 2022-04-05 00:11:00 Flo [facility] XR KNEE 3 VW LEFT 2022-04-05 00:11:00 Chou [facility] Andrea XR PELVIS 3+ VW 2022-04-05 00:11:00 Flo [facility] XR SHOULDER 2+ VW RIGHT 2022-04-05 00:11:00 Chou [facility] Andrea HB ECG ROUTINE & RHYTHM 2022-04-04 [facility] & RHYTHM 2022-04-04 23:08:36 Chou [facility] Andrea HB ABO GROUPING 2022-04-04 19:55:00 Nolvia Husain [facility] HB ABO GROUPING 2022-04-04 19:55:00 Nolvia Husain [facility] CT TRAUMA HEAD WO 2022-04-04 19:10:01 Nolvia Husain [facility] CONTRAST [facility] CT TRAUMA CERVICAL SPINE 2022-04-04 19:10:01 Nolvia Husain [facility] CONTRAST Medical Branch CT TRAUMA THORACIC SPINE 2022-04-04 19:10:01 Nolvia Husain [facility] CONTRAST Medical [place] CT TRAUMA LUMBAR SPINE WO 2022-04-04 19:10:01 Nolvia Husain [facility] CONTRAST Medical Branch CT TRAUMA HEAD WO 2022-04-04 19:10:01 Nolvia Husain [facility] CONTRAST Medical Branch CT TRAUMA CERVICAL SPINE 2022-04-04 19:10:01 Nolvia Husain [facility] CONTRAST Medical Branch CT TRAUMA THORACIC SPINE 2022-04-04 19:10:01 Nolvia Husain [facility] CONTRAST Medical Branch CT TRAUMA LUMBAR SPINE WO 2022-04-04 19:10:01 Nolvia Husain [facility] CONTRAST Medical Branch CT TRAUMA THORAX W 2022-04-04 19:08:26 Nolvia Husain [facility] CONTRAST Medical Branch CT TRAUMA ABDOMEN PELVIS 2022-04-04 19:08:26 Nolvia Husain [facility] CONTRAST Medical Branch CT TRAUMA THORAX W 2022-04-04 19:08:26 Nolvia Husain [facility] CONTRAST Medical Branch CT TRAUMA ABDOMEN PELVIS 2022-04-04 19:08:26 Nolvia Husain [facility] CONTRAST Medical Branch ABORH CONFIRMATION (LAB 2022-04-04 19:02:00 Nolvia Husain [facility] ONLY) Medical Branch ABORH CONFIRMATION (LAB 2022-04-04 19:02:00 Nolvia Husain [facility] ONLY) Medical Branch LIPASE 2022-04-04 18:35:00 Nolvia Husain [facility] TEST, SERUM 2022-04-04 18:35:00 Nolvia Husain [facility] COMP. METABOLIC PANEL 2022-04-04 18:35:00 Nolvia Husain [facility] ([id number]) Medical Branch COMP. METABOLIC PANEL 2022-04-04 18:35:00 Nolvia Husain [facility] ([id number]) Medical Branch LIPASE 2022-04-04 18:35:00 Nolvia Husain [facility] TEST, SERUM 2022-04-04 18:35:00 Nolvia Husain [facility] CBC WITH DIFF 2022-04-04 18:20:00 Nolvia Husain [facility] CBC WITH DIFF 2022-04-04 18:20:00 Nolvia Husain [facility] EMERGENCY SERVICES 2022-04-04 05:01:00 Doctor Unassigned, [facility] AGREEMENTS AND [place] [facility] AUTHORIZATIONS EMERGENCY DEPARTMENT 2022-04-04 05:01:00 Doctor Rosamariasslanette, [facility] DOCUMENTS [place] [facility] EMERGENCY SERVICES 2022-04-04 05:01:00 Doctor Rosamariasslanette, [facility] AGREEMENTS AND [place] [facility] AUTHORIZATIONS EMERGENCY DEPARTMENT 2022-04-04 05:01:00 Doctor Fidel, [facility] DOCUMENTS [place] [facility] POCT TEST 2022-04-01 04:37:00 Deonna Melendrez [facility] POCT TEST 2022-04-01 04:37:00 Deonna Melendrez [facility] Medical Branch LIPASE 2022-04-01 04:36:00 Deonna Melendrez [facility] COMP. METABOLIC PANEL 2022-04-01 04:36:00 Deonna Melendrez [facility] ([id number]) Medical Branch CBC WITH DIFF 2022-04-01 04:36:00 Deonna Melendrez [facility] Medical Branch URINALYSIS 2022-04-01 04:36:00 Deonna Melendrez [facility] CBC WITH DIFF 2022-04-01 04:36:00 Deonna Melendrez [facility] COMP. METABOLIC PANEL 2022-04-01 04:36:00 Deonna Melendrez [facility] ([id number]) Medical Branch URINALYSIS 2022-04-01 04:36:00 Deonna Melendrez [facility] Medical Branch LIPASE 2022-04-01 04:36:00 Deonna Melendrez [facility] NOTICE OF PRIVACY 2022-04-01 03:37:12 Doctor Fidel [facility] PRACTICES [place] [facility] NOTICE OF PRIVACY 2022-04-01 03:37:12 Doctor Fidel, [facility] PRACTICES [place] [facility] CONSENT/REFUSAL FOR 2022-04-01 03:36:55 Doctor Fidel [facility] DIAGNOSIS AND TREATMENT [place] [facility] CONSENT/REFUSAL FOR 2022-04-01 03:36:55 Doctor Fidel [facility] DIAGNOSIS AND TREATMENT [place] [facility] EMERGENCY SERVICES 2022-03-31 05:01:00 Doctor Fidel, [facility] AGREEMENTS AND [place] [facility] AUTHORIZATIONS SARS-COV-2 COVID-19 2022-03-17 16:49:14 Doctor Fidel [facility] MIKE-SUCROSE VACCINE 12 [place] [facility] YRS+, BIVALENT 0.3ML, IM, (PFIZER ARITA TOP BOOSTER) SARS-COV-2 COVID-19 2022-03-17 16:49:14 Doctor UnassignedRama [facility] [place] MIKE-SUCROSE VACCINE 12 [place] [facility] [place] YRS+, BIVALENT 0.3ML, IM, (PFIZER ARITA TOP BOOSTER) XR PELVIS 3+ VW 2022-02-24 18:13:00 Arnaldo [facility] EXTERNAL PROVIDER RECORDS 2022-02-22 05:01:00 Doctor Parra [facility] Name Medical [place] EMERGENCY SERVICES 2022-01-23 05:01:00 Doctor Parra [facility] AGREEMENTS AND [place] [facility] AUTHORIZATIONS EMERGENCY DEPARTMENT 2022-01-23 05:01:00 Doctor Fidel [facility] DOCUMENTS [place] [facility] Encounters Start End Encounter Admission Attending Care Care Encounter Source Date/Time Date/Time Type Type Clinicians Facility Department ID 2022-09-[address] [facility] [id number] [place] 17:53:01 [id number] Critical access hospital 2022-09-[address] [facility] [id number] [facility] 17:49:01 [id number] Critical access hospital 2021-11-02 Outpatient [facility] [id number] [place] 11:00:33 [id number] [facility] 2021-07-09 Inpatient [facility] [id number] [facility] 12:46:00 14 2021-05-25 Inpatient [facility] [id number] [facility] 23:19:00 94 2021-04-30 Emergency [facility] [id number] Univers 23:08:18 [facility] 2023-05-18 2023-05-18 Outpatient R ALEJANDRA MORROW [facility] U [facility] [id number] [facility] 08:30:00 08:30:00 ALEJANDRA MORROW ity of [facility] 2023-04-18 2023-04-18 Outpatient R NICOLLE [facility] [id number] Univers 14:45:00 15:22:10 SUSAN ity o f [facility] 2023-04-18 2023-04-18 Travel 1.2.840.1 1.2.290.501 [id number] Univers 00:00:00 00:00:00 05146.1.1 350.1.13.10 ity of 3.104.2.7 [place].3.698 [place] .3.063509 084.8 Medica l .8 [place] 2023-04-14 2023-04-14 Travel 1.2.840.1 1.2.983.211 [id number] Univers 00:00:00 00:00:00 24033.1.1 350.1.13.10 ity of 3.104.2.7 4.[place].7.3.698 [place] .3.557552 084.8 Medica l .8 [place] 2023-04-03 2023-04-03 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 Handy 1.2.840.1 [id number] Univers 14:15:00 14:15:00 Visit Lab, [place] 19395.1.1 ity of 3.104.2.7 [place] .3.164311 Medica l .8 [place] 2023-04-03 2023-04-03 Outpatient Escobar HANDY [facility] [id number] Univers 14:15:00 11:18:40 GODWIN ity of [facility] 2023-04-03 2023-04-03 Travel 1.2.840.1 1.2.316.843 [id number] Univers 00:00:00 00:00:00 87717.1.1 350.1.13.10 ity of 3.104.2.7 4.[place].7.3.698 [place] .3.530188 084.8 Medica l .8 [place] 2023-03-30 2023-03-30 Outpatient R NICOLLE [facility] [id number] Univers 14:45:00 15:21:13 SUSAN bernaly o f [facility] 2023-03-30 2023-03-30 Travel 1.2.840.1 1.2.681.077 [id number] Univers 00:00:00 00:00:00 06802.1.1 350.1.13.10 ity of 3.104.2.7 4.[place].7.3.698 [place] .3.830905 084.8 Medica l .8 [place] 2023-03-16 2023-03-16 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 Susan Valverde 1.2.840.1 [id number] Univers 15:45:00 16:00:00 Visit Pcp-Lab 90207.1.1 ity of 3.104.2.7 [place] .3.994994 Medica l .8 [place] 2023-03-16 2023-03-16 Outpatient R NICOLLE [facility] [id number] [facility] 14:45:00 15:29:18 SUSAN gabeadrian o f [facility] 2023-03-16 2023-03-16 Travel 1.2.840.1 1.2.255.966 [id number] Univers 00:00:00 00:00:00 41654.1.1 350.1.13.10 ity of 3.104.2.7 4.[place].7.3.698 [place] .3.867053 084.8 Medica l .8 [place] 2023-03-16 2023-03-16 Orders Doctor 1.2.840.6 [id number] Univers 00:00:00 00:00:00 Only Unassigned, 79529.1.1 ity of [place] 3.104.2.7 [place] .3.416673 Medica l .8 Branch 2022-12-29 2022-12-29 Patient PcpBOUCHRA 1.2.840.114 [id number] Univers 00:00:00 00:00:00 Secure Msg Patient EDITH 350.1.13.10 ity of Does Not HOSPITAL 4[place].2.686 [place] [id number] [place] [id number] [place] 2022-12-15 2022-12-15 Hospital Arnaldo, 1.2.840.1 [id number] Univers 10:07:57 23:59:00 Encounter Bouchra 56885.1.1 it y of 3.104.2.7 [place] .3.815049 Medica l .8 [place] 2022-12-15 2022-12-15 [facility] [id number] Univers 10:30:00 11:21:10 BOUCHRA ity of [facility] 2022-12-15 2022-12-15 Office Arnaldo, 1.2.840.0 [id number] Univers 10:30:00 11:21:10 Visit Bouchra 29348.1.1 ity of 3.104.2.7 [place] .3.665985 Medica l .8 [place] 2022-12-15 2022-12-15 Travel 1.2.840.1 1.2.239.669 [id number] Univers 00:00:00 00:00:00 59553.1.1 350.1.13.10 ity of 3.104.2.7 [place]7.3.698 [place] .3.535116 084.8 Medica l .8 [place] 2022-12-05 2022-12-05 Outpatient R REYNALDO, [facility] [id number] Univers 08:45:00 10:19:40 JAMES ity o f [facility] 2022-12-05 2022-12-05 Travel 1.2.840.1 1.2.777.377 [id number] Univers 00:00:00 00:00:00 31569.1.1 350.1.13.10 ity of 3.104.2.7 4.[place].7.3.698 [place] .3.205189 084.8 Medica l .8 [place] 2022-12-02 2022-12-02 Outpatient R [facility] [id number] Univers 10:45:00 10:45:00 ity of [facility] 2022-11-25 2022-11-25 Outpatient R ALEJANDRA MORROW [facility] U [facility] [id number] Univers 08:30:00 09:09:48 ALEJANDRA MORROW ity of [facility] 2022-11-25 2022-11-25 Office Rosalinda 1.2.840.4 [id number] Univers 08:30:00 09:09:48 Visit Alejandra lopez 41124.1.1 i ty of 3.104.2.7 [place] .3.241067 Medica l .8 [place] 2022-11-25 2022-11-25 Travel 1.2.840.1 1.2.933.798 [id number] Univers 00:00:00 00:00:00 28825.1.1 350.1.13.10 ity of 3.104.2.7 4.2.7.3.698 [place] .3.760174 084.8 Medica l .8 [place] 2022-11-25 2022-11-25 Orders Doctor 1.2.840.1 [id number] Univers 00:00:00 00:00:00 Only Unassigned, 11558.1.1 ity of [place] 3.104.2.7 [place] .3.400618 Medica l .8 [place] 2022-10-31 2022-10-31 Outpatient Escobar FORD [facility] [id number] Univers 09:30:00 10:46:48 TEJAL ity of [facility] 2022-10-31 2022-10-31 Orders Doctor 1.2.840.7 [id number] Univers 00:00:00 00:00:00 Only Unassigned, 02034.1.1 ity of [place] 3.104.2.7 [place] .3.793092 Medica l .8 Branch 2022-10-31 2022-10-31 Travel 1.2.840.1 1.2.928.459 [id number] Univers 00:00:00 00:00:00 39040.1.1 350.1.13.10 ity of 3.104.2.7 4.2.7.3.698 [place] .3.934179 084.8 Medica l .8 Branch 2022-10-07 2022-10-07 Orders Doctor 1.2.840.8 [id number] Univers 00:00:00 00:00:00 Only Unassigned, 52782.1.1 ity of [place] 3.104.2.7 [place] .3.847298 Medica l .8 [place] 2022-09-19 2022-09-19 [facility] [id number] Univers 08:00:00 09:02:03 TEJAL ity of [facility] 2022-09-19 2022-09-19 Travel 1.2.840.1 1.2.074.461 [id number] Univers 00:00:00 00:00:00 48752.1.1 350.1.13.10 ity of 3.104.2.7 4.2.7.3.698 [place] .3.301555 084.8 Medica l .8 [place] 2022-09-09 2022-09-09 Patient Doctor BOUCHRA 1.2.840.114 [id number] Univers 00:00:00 00:00:00 Secure Msg Unassigned, EDITH 350.1.13.10 ity of [place] [facility] 4.2.7.2.686 Harley as [id number] [address] 2022-09-06 2022-09-06 Orders Doctor 1.2.840.7 [id number] Univers 00:00:00 00:00:00 Only Unassigned, 52127.1.1 ity of [place] 3.104.2.7 [place] .3.918973 Medica l .8 [place] 2022-08-22 2022-08-22 Outpatient R REYNALDO, [facility] [id number] Univers 10:15:00 12:05:25 JAMES ity o f [facility] 2022-08-22 2022-08-22 Travel 1.2.840.1 1.2.120.095 [id number] Univers 00:00:00 00:00:00 12324.1.1 350.1.13.10 ity of 3.104.2.7 4.2.7.3.698 [place] .3.669219 084.8 Medica l .8 [place] 2022-07-25 2022-07-25 Outpatient R REYNALDO [facility] [id number] Univers 08:45:00 10:27:30 JAMES ity o f [facility] 2022-07-25 2022-07-25 Travel 1.2.840.1 1.2.603.616 [id number] Univers 00:00:00 00:00:00 07535.1.1 350.1.13.10 ity of 3.104.2.7 4.[place].7.3.698 [place] .3.033254 084.8 Medica l .8 [place] 2022-07-15 2022-07-15 Emergency EM Ramirez KRISSTB EO3 [id number] [facility] 19:20:00 21:08:00 Jose Moncada [facility] [place] 2022-07-04 2022-07-04 Emergency EM Eric Moore HCAPM GAYLA LA00 [id number] [facility] 16:22:00 17:00:00 83 [facility] 2022-06-16 2022-06-16 [facility], 1.2.840.2 [id number] Univers 10:58:02 23:59:00 Encounter Bouchra 50942.1.1 it y of 3.104.2.7 [place] .3.773680 Medica l .8 [place] 2022-06-16 2022-06-16 [facility] [id number] Univers 10:20:00 11:48:13 BOUCHRA erickson of [facility] 2022-06-16 2022-06-16 Office Arnaldo, 1.2.840.5 [id number] Univers 10:20:00 11:48:13 Visit Bouchra 26643.1.1 ity of 3.104.2.7 [place] .3.461746 Medica l .8 [place] 2022-06-16 2022-06-16 Travel 1.2.840.1 1.2.270.682 [id number] Univers 00:00:00 00:00:00 71039.1.1 350.1.13.10 ity of 3.104.2.7 4.2.7.3.698 [place] .3.744057 084.8 Medica l .8 [place] 2022-06-13 2022-06-13 Outpatient R SELF, [facility] [id number] Univers 11:00:00 11:34:17 JAMES ity o f [facility] 2022-06-13 2022-06-13 Travel 1.2.840.1 1.2.280.991 [id number] Univers 00:00:00 00:00:00 01125.1.1 350.1.13.10 ity of 3.104.2.7 [place].3.698 [place] 2022-05-31 2022-06-01 [facility] [id number] Univers 22:37:00 00:11:00 DEONNA ity of [facility] 2022-05-31 2022-06-01 Emergency Parvin, 1.2.840.1 [id number] [id number] Univers 22:37:00 00:11:00 Deonna Lopez 41845.1.1 ity of 3.104.2.7 [place] .3.397213 Med[place] .8 [place] 2022-05-31 2022-05-31 Travel 1.2.840.1 1.2.939.566 6422 8684 Univers 00:00:00 00:00:00 05903.1.1 350.1.13.10 ity of 3.104.2.7 [place].3.698 [place].946[place] 084.8 [place] .8 [place] 2022-05-23 2022-05-23 Outpatient R SELF, [facility] [id number] Univers 10:15:00 10:15:00 JAMES erickson o f [facility] 2022-05-19 2022-05-19 Hospital Arnaldo, 1.2.840.1 [id number] Univers 10:33:33 23:59:00 Tej Montesinos 57338.1.1 it y of 3.104.2.7 [place] .3.763223 Med[place] .[place] 2022-05-19 2022-05-19 Office [facility], 1.2.840.1 [id number] [id number] [facility] 12:50:00 12:50:00 Visit Bouchra 60036.1.1 ity of 3.104.2.7 [place] .3.828239 Medica [place] .8 [place] 2022-05-19 2022-05-19 Outpatient R [facility] [id number] Univers 12:50:00 12:42:46 BOUCHRA ity of [facility] 2022-05-19 2022-05-19 Travel 1.2.840.1 1.2.764.244 4447 6719 Univers 00:00:00 00:00:00 23265.1.1 350.1.13.10 ity of 3.104.2.[place].3.698 [place].6520[place] 084.8 [place] .[place] 2022-05-02 2022-05-02 [facility] [id number] Univers 08:45:00 09:32:43 JAMES ity o f [facility] 2022-05-02 2022-05-02 Travel 1.2.840.1 1.2.226.029 2161 1874 Univers 00:00:00 00:00:00 09859.1.1 350.1.13.10 ity of 3.104.2.7 [place].3.698 [place].29[place] 0[place].8 [place] .[place] 2022-04-21 2022-04-21 Outpatient R [facility] [id number] Univers 15:08:38 23:59:00 BOUCHRA ity of [facility] 2022-04-21 2022-04-21 [facility], 1.2.840.1 [id number] Univers 15:08:38 23:59:00 Encounter Bouchra 15364.1.1 it y of 3.104.2.7 [place] .3.873668 Medica [place] .8 [place] 2022-04-21 2022-04-21 [facility], 1.2.840.7 [id number] [id number] Univers 15:20:00 16:19:45 Visit Bouchra 47837.1.1 ity of 3.104.2.7 [place] .3.903129 Medica [place] .8 [place] 2022-04-21 2022-04-21 Travel 1.2.840.1 1.2.068.873 5897 0847 Univers 00:00:00 00:00:00 05809.1.1 350.1.13.10 ity of 3.104.2.7 [place]7.3.698 [place]3.2155[place] 084.8 [place] .[place] 2022-04-10 2022-04-10 [facility] [id number] Univers 17:11:00 22:14:00 IRASEMA ity of [facility] 2022-04-10 2022-04-10 Emergency Robledo, 1.2.840.4 [id number] Univers 17:11:00 22:14:00 Irasema 17079.1.1 ity of 3.104.2.7 [place] .3.655260 Medica [place] .8 [place] 2022-04-10 2022-04-10 Urgent MariShivani gardner 1.2.840.1 [id number] [id number] Univers 16:40:00 18:22:07 Care Nurse, [facility] 61955.1.1 ity of 3.104.2.7 [place] .3.883708 Medica [place] .8 [place] 2022-04-10 2022-04-10 Outpatient R MARI [facility] [id number] Univers 16:40:00 16:40:00 SHIVANI anderson [facility] 2022-04-10 2022-04-10 Travel 1.2.840.1 1.2.033.357 5984 4834 Univers 00:00:00 00:00:00 75482.1.1 350.1.13.10 ity of 3.104.2.7 [place]7.3.698 [place] .3.058[place] 084.8 [facility] .8 [place] 2022-04-08 2022-04-08 Transition Moise, 1.2.840.3 [id number] Univers 00:00:00 00:00:00 of Care Negrita 91797.1.1 i ty of 3.104.2.7 [place] .3.802304 Medica [place] .8 [place] 2022-04-04 2022-04-07 Hospital Person, 1.2.840.2 [id number] Univers 17:33:00 17:00:00 Encounter Keagan 13723.1.1 it y of 3.104.2.7 [place] .3.391117 Medica [place] .8 [place] 2022-04-06 2022-04-06 [facility], 1.2.840.3 [id number] Univers 00:00:00 00:00:00 Management Care 60313.1.1 i ty of Transition 3.104.2.7 Harley as .3.121947 Medica l .8 [place] 2022-04-04 2022-04-04 [facility] [id number] Univers 12:41:00 16:56:00 NOLVIA bernaly [facility] 2022-04-04 2022-04-04 Emergency [facility] [id number] Univers 12:41:00 16:56:00 NOLVIA bernaly [facility] 2022-04-04 2022-04-04 Emergency Rodrigue, 1.2.840.9 [id number] 971 [id number] Univers 12:41:00 16:56:00 Nolvia 99717.1.1 ity of 3.104.2.7 [place] .3.913658 Medica [place] .8 [place] 2022-04-04 2022-04-04 Travel 1.2.840.1 1.2.481.876 1788 3840 Univers 00:00:00 00:00:00 91377.1.1 350.1.13.10 ity of 3.104.2.7 [place]7.3.698 [place]3.281588 084.8 Med[place] .8 [place] 2022-03-31 2022-04-01 Emergency X PARVIN [facility] ERT [id number] Univers 22:46:00 01:29:00 DEONNA ity of [facility] 2022-03-31 2022-04-01 Emergency Melendrez, 1.2.840.0 [id number] 970 [id number] Univers 22:46:00 01:29:00 Deonna S 71956.1.1 ity of 3.104.2.7 [place] .3.883300 Medica [place] .[place] 2022-03-31 2022-03-31 Orders Doctor 1.2.840.3 [id number] [id number] Univers 00:00:00 00:00:00 Only Unassigned, 55657.1.1 ity of [place] 3.104.2.7 [place] .3.848624 Medica l .8 [place] 2022-03-31 2022-03-31 Travel 1.2.840.1 1.2.661.350 7462 0137 Univers 00:00:00 00:00:00 41522.1.1 350.1.13.10 ity of 3.104.2.7 4.[place]7.3.698 [place]3.9475[place] 084.8 [place] .8 [place] 2022-03-28 2022-03-28 Outpatient R REYNALDO, [facility] [id number] Univers 10:15:00 12:05:24 JAMES bernaly o f [facility] 2022-03-28 2022-03-28 Travel 1.2.840.1 1.2.125.279 1939 9783 Univers 00:00:00 00:00:00 50534.1.1 350.1.13.10 ity of 3.104.2.7 [place]7.3.698 [place]3.6832[place] 084.8 Med[place] l .8 [place] 2022-03-17 2022-03-17 Imm/Inj Vignesh Mack 1.2.840.1 [id number] Univers 11:30:00 12:25:54 Visit Janice Orosco 92373.1.1 ity of 3.104.2.7 [place] .3.453365 Medica l .8 [place] 2022-03-17 2022-03-17 Outpatient R FREDERICK [facility] [id number] Univers 10:30:00 11:13:04 VIGNESH erickson of [facility] 2022-03-17 2022-03-17 Travel 1.2.840.1 1.2.539.357 4831 0034 Univers 00:00:00 00:00:00 44486.1.1 350.1.13.10 ity of 3.104.2.7 [place]7.3.698 [place]3.912[place] 084.8 [place] .8 [place] 2022-02-24 2022-02-24 [facility], 1.2.840.4 [id number] Univers 13:02:19 23:59:00 Encounter Bouchra 67982.1.1 it y of 3.104.2.7 [place] .3.729788 Medica l .8 [place] 2022-02-24 2022-02-24 [facility], 1.2.840.1 [id number] 96 [id number] Univers 13:02:19 23:59:00 Encounter Bouchra 12164.1.1 it y of 3.104.2.7 [place] .3.223163 Medica l .8 [place] 2022-02-24 2022-02-24 [facility] [id number] Univers 13:00:00 14:33:28 BOUCHRA erickson of [facility] 2022-02-24 2022-02-24 [facility], 1.2.840.1 [id number] 915 [id number] Univers 13:00:00 14:33:28 Visit Bouchra 66621.1.1 ity of 3.104.2.7 [place] .3.756468 Medica l .8 [place] 2022-02-24 2022-02-24 [facility] [id number] Univers 13:00:00 13:00:00 BOUCHRA erickson of [facility] 2022-02-24 2022-02-24 Travel 1.2.840.1 1.2.850.575 5033 4498 Univers 00:00:00 00:00:00 57668.1.1 350.1.13.10 ity of 3.104.2.7 [place]7.3.698 [place] .3.055449 084.8 [facility] .8 [place] 2022-02-22 2022-02-22 Orders Doctor 1.2.840.1 [id number] Univers 00:00:00 00:00:00 Only Unassigned, 31409.1.1 ity of [place] 3.104.2.7 [place] .3.258863 Medica [facility] .8 [place] 2022-02-22 2022-02-22 Orders Doctor 1.2.840.1 [id number] Univers 00:00:00 00:00:00 Only Unassigned, 13313.1.1 ity of [place] 3.104.2.7 [place] .3.320850 Medica l .8 [place] 2022-02-21 2022-02-21 Outpatient R REYNALDO, [facility] [id number] Univers 08:00:00 08:48:33 JAMES erickson o f [facility] 2022-02-21 2022-02-21 Travel 1.2.840.1 1.2.212.186 0016 9562 Univers 00:00:00 00:00:00 15558.1.1 350.1.13.10 ity of 3.104.2.7 4.[place].7.3.698 [place]3.381075 084.8 Medica l .8 [place] 2022-02-21 2022-02-21 Travel 1.2.840.1 1.2.835.204 9798 9562 Univers 00:00:00 00:00:00 03311.1.1 350.1.13.10 ity of 3.104.2.7 4.2.7.3.698 [place] .3.074754 084.8 Med[place] l .8 [place] 2022-01-23 2022-01-23 Emergency X Kitty [facility] ERT [id number] Univers 19:42:00 21:04:00 ity of [facility] 2022-01-23 2022-01-23 Emergency [place], K 1.2.840.6 [id number] Univers 19:42:00 21:04:00 Bree 45380.1.1 ity of 3.104.2.7 [place] .3.283769 Medica l .8 [place] 2022-01-23 2022-01-23 Emergency [place], K 1.2.840.5 [id number] Univers 19:42:00 21:04:00 Bree 16111.1.1 ity of 3.104.2.7 [place] .3.145897 Medica l .8 [place] 2022-01-23 2022-01-23 Travel 1.2.840.1 1.2.310.828 9354 2965 Univers 00:00:00 00:00:00 52334.1.1 350.1.13.10 ity of 3.104.2.7 4.2.7.3.698 [place] .3.001442 084.8 Med[place] l .8 [place] 2022-01-23 2022-01-23 Travel 1.2.840.1 1.2.268.264 2040 2965 Univers 00:00:00 00:00:00 72201.1.1 350.1.13.10 ity of 3.104.2.7 4.2.7.3.698 [place] .3.735395 084.8 [place] l .8 [place] 2022-01-17 2022-01-17 Outpatient R SELF, [facility] [id number] Univers 10:15:00 11:23:04 JAMES bernaladrian o f [facility] 2022-01-17 2022-01-17 Outpatient R SELF, [facility] [id number] Univers 10:15:00 11:23:04 JAMES erickson o f [facility] 2022-01-17 2022-01-17 Travel 1.2.840.1 1.2.906.089 3695 6960 Univers 00:00:00 00:00:00 83658.1.1 350.1.13.10 ity of 3.104.2.7 4.2.7.3.698 [place] .3.362646 084.8 Medica l .8 [place] 2022-01-17 2022-01-17 Travel 1.2.840.1 1.2.806.938 1155 6960 Univers 00:00:00 00:00:00 61700.1.1 350.1.13.10 ity of 3.104.2.7 4.2.7.3.698 [place] .3.589921 084.8 Med[place] l .8 [place] 2021-12-31 2021-12-31 Outpatient R FISHASH [facility] [id number] [facility] 16:00:00 17:22:54 ity of [facility] 2021-12-31 2021-12-31 Office Fish[place] 1.2.840.9 [id number] Univers 16:00:00 17:22:54 Visit Maggie Brooks 82583.1.1 ity of 3.104.2.7 [place] .3.430771 Medica l .8 [place] 2021-12-31 2021-12-31 Office [place] 1.2.840.6 [id number] Univers 16:00:00 17:22:54 Visit Maggie Brooks 04029.1.1 ity of 3.104.2.7 [place] .3.488335 Medica l .8 [place] 2021-12-31 2021-12-31 Outpatient R ASH RAMIREZ [facility] [id number] Univers 16:00:00 16:00:00 ity of [facility] 2021-12-31 2021-12-31 Travel 1.2.840.1 1.2.762.215 0206 7179 [facility] 00:00:00 00:00:00 54900.1.1 350.1.13.10 ity of 3.104.2.7 4.2.7.3.698 [place] .3.527775 084.8 Medica l .8 [place] 2021-12-31 2021-12-31 Travel 1.2.840.1 1.2.911.358 8853 7179 Univers 00:00:00 00:00:00 54867.1.1 350.1.13.10 ity of 3.104.2.7 4.2.7.3.698 [place] .3.924170 084.8 Medica l .8 [place] 2021-12-20 2021-12-20 Outpatient R REYNALDO, [facility] [id number] Univers 10:30:00 11:58:18 JAMES erickson o f [facility] 2021-12-20 2021-12-20 Travel 1.2.840.1 1.2.489.027 3177 9777 Univers 00:00:00 00:00:00 58558.1.1 350.1.13.10 ity of 3.104.2.7 4.2.7.3.698 [place] .3.182742 084.8 Medica l .8 [place] 2021-12-20 2021-12-20 Travel 1.2.840.1 1.2.901.185 6664 9777 Univers 00:00:00 00:00:00 98249.1.1 350.1.13.10 ity of 3.104.2.7 4.2.7.3.698 [place] .3.148118 084.8 Medica l .8 [place] 2021-12-20 2021-12-20 Travel 1.2.840.1 1.2.340.450 3988 9777 Univers 00:00:00 00:00:00 22102.1.1 350.1.13.10 ity of 3.104.2.7 4.2.7.3.698 [place] .3.536936 084.8 Medica l .8 [place] 2021-12-13 2021-12-13 Outpatient R ANGELICA, [facility] [id number] Univers 08:00:00 08:00:00 HANDY erickson of [facility] 2021-12-06 2021-12-06 Shivani Patel 1.2.840.1 [id number] Univers 12:00:00 12:16:45 Akiko Gonzalez 80745.1.1 ity of 3.104.2.7 [place] .3.268680 Medica l .8 [place] 2021-12-06 2021-12-06 Urgent Shivani Guerra 1.2.840.1 [id number] [facility] 12:00:00 12:16:45 Akiko Gonzalez 25044.1.1 ity of 3.104.2.7 [place] .3.957095 Medica l .8 [place] 2021-12-06 2021-12-06 Outpatient MARINA [facility] [id number] [facility] 12:00:00 12:16:45 AKIKO ity of [facility] 2021-12-06 2021-12-06 Urgent Shivani Guerra 1.2.840.1 97428 34382 [id number] [facility] 12:00:00 12:16:45 Akiko Gonzalez 86928.1.1 ity of 3.104.2.7 [place] .3.318552 Medica l .8 [place] 2021-12-06 2021-12-06 Travel 1.2.840.1 1.2.557.031 5920 2730 Univers 00:00:00 00:00:00 52587.1.1 350.1.13.10 ity of 3.104.2.7 4.2.7.3.698 [place] .3.495960 084.8 Medica l .8 [place] 2021-12-06 2021-12-06 Travel 1.2.840.1 1.2.638.858 8692 2730 Univers 00:00:00 00:00:00 70021.1.1 350.1.13.10 ity of 3.104.2.7 4.2.7.3.698 [place] .3.372956 084.8 Medica l .8 [place] 2021-12-06 2021-12-06 Travel 1.2.840.1 1.2.734.561 4522 2730 Univers 00:00:00 00:00:00 92291.1.1 350.1.13.10 ity of 3.104.2.7 4.2.7.3.698 [place] .3.163707 084.8 Medica l .8 [place] 2021-11-26 2021-11-26 Office [place] 1.2.840.5 [id number] [facility] 15:00:00 15:40:48 Visit 38078.1.1 ity of 3.104.2.7 [place] .3.611013 Medica l .8 [place] 2021-11-26 2021-11-26 Outpatient R ASH RAMIREZ [facility] [id number] [facility] 15:00:00 15:40:48 ity of [facility] 2021-11-26 2021-11-26 Office [place] 1.2.840.6 [id number] [facility] 15:00:00 15:40:48 Visit 75999.1.1 ity of 3.104.2.7 [place] .3.246523 Medica l .8 [place] 2021-11-26 2021-11-26 Outpatient R ASH RAMIREZ [facility] [id number] [id number] Univers 15:00:00 15:00:00 ity of [facility] 2021-11-26 2021-11-26 Travel 1.2.840.1 1.2.549.469 1754 4215 Univers 00:00:00 00:00:00 99262.1.1 350.1.13.10 ity of 3.104.2.7 4.2.7.3.698 [place] .3.011327 084.8 Medica l .8 [place] 2021-11-26 2021-11-26 Travel 1.2.840.1 1.2.776.593 3762 4215 Univers 00:00:00 00:00:00 65722.1.1 350.1.13.10 ity of 3.104.2.7 4.2.7.3.698 [place] .3.451371 084.8 Medica l .8 [place] 2021-11-23 2021-11-23 Outpatient R ASH RAMIREZ [facility] [id number] Univers 14:00:00 14:00:00 ity of [facility] 2021-11-19 2021-11-19 [facility], 1.2.840.6 [id number] [id number] Univers 17:58:13 23:59:00 Encounter Rania 88772.1.1 it y of 3.104.2.7 [place] .3.437918 Medica l .8 [place] 2021-11-19 2021-11-19 [facility] [id number] Univers 17:58:13 23:59:00 RANIA ity of [facility] 2021-11-19 2021-11-19 [facility] 1.2.380.141 7689 4616 Univers 17:58:13 23:59:00 Encounter Rania HEALTH 350.1.13.10 ity of [place] 4.2.7.2.686 Harley as OLIVIA?BLEA [id number] [facility] [address] [place] MEDICAL OFFICE [facility] 2021-11-19 2021-11-19 [facility], 1.2.840.0 [id number] [id number] Univers 17:58:13 23:59:00 Encounter Rania 84586.1.1 it y of 3.104.2.7 [place] .3.188262 Medica l .8 [place] 2021-11-19 2021-11-19 Urgent Ebrahim, 1.2.840.2 [id number] [id number] Univers 17:20:00 18:04:46 Care Rania 64105.1.1 ity of 3.104.2.7 [place] .3.210504 Medica l .8 [place] 2021-11-19 2021-11-19 [facility] 1.2.840.114 59849 [id number] Univers 17:20:00 18:04:46 Care Rania HEALTH 350.1.13.10 it y of [place] 4.2.7.2.686 Harley as OLIVIA?BLEA [id number] [facility] [address] [place] MEDICAL OFFICE [facility] 2021-11-19 2021-11-19 Urgent Ebrahim, 1.2.840.4 [id number] [id number] Univers 17:20:00 18:04:46 Care Rania 47970.1.1 ity of 3.104.2.7 [place] .3.276266 Medica l .8 [place] 2021-11-19 2021-11-19 Travel 1.2.840.1 1.2.506.626 8784 4086 Univers 00:00:00 00:00:00 33982.1.1 350.1.13.10 ity of 3.104.2.7 4.2[place]7.3.698 [place] .3.417508 084.8 Medica l .8 [place] 2021-11-19 2021-11-19 Travel 1.2.840.1 1.2.462.393 7443 4086 Univers 00:00:00 00:00:00 54006.1.1 350.1.13.10 ity of 3.104.2.7 4.2.7.3.698 [place] .3.597154 084.8 Medica l .8 [place] 2021-11-17 2021-11-17 Outpatient R LUCINDA WILLS [facility] [id number] Univers 14:45:00 14:45:00 ity of [facility] 2021-11-17 2021-11-17 Outpatient R LUCINDA WILLS [facility] [id number] [id number] Univers 14:45:00 14:45:00 ity of [facility] 2021-11-16 2021-11-16 Telephone Lucinda Wills 1.2.840.0 [id number] Univers 00:00:00 00:00:00 Cam 81206.1.1 ity of 3.104.2.7 [place] .3.978874 Medica l .8 [place] 2021-11-16 2021-11-16 Telephone Lucinda Wills 1.2.840.4 [id number] Univers 00:00:00 00:00:00 Cam 85107.1.1 ity of 3.104.2.7 [place] .3.692157 Medica l .8 [place] 2021-11-16 2021-11-16 Telephone Lucinda Wills 1.2.840.9 [id number] Univers 00:00:00 00:00:00 Cam 22599.1.1 ity of 3.104.2.7 [place] .3.596956 [facility]ica l .8 [place] 2021-11-08 2021-11-08 Outpatient R REYNALDO, [facility] [id number] Univers 11:15:00 11:40:32 JAMES ity o f [facility] 2021-11-08 2021-11-08 Travel 1.2.840.1 1.2.841.171 6907 9142 Univers 00:00:00 00:00:00 85643.1.1 350.1.13.10 ity of 3.104.2.7 4.2.7.3.698 [place] .3.221404 084.8 Medica l .8 [place] 2021-11-08 2021-11-08 Travel 1.2.840.1 1.2.092.494 5676 9142 Univers 00:00:00 00:00:00 63734.1.1 350.1.13.10 ity of 3.104.2.7 4.2.7.3.698 [place] .3.378228 084.8 Medica l .8 [place] 2021-11-08 2021-11-08 Travel 1.2.840.1 1.2.783.876 8927 9142 Univers 00:00:00 00:00:00 62047.1.1 350.1.13.10 ity of 3.104.2.7 4.2.7.3.698 [place] .3.787225 084.8 Medica l .8 [place] 2021-10-29 2021-10-29 Office Lucinda Wills 1.2.840.3 [id number] Univers 13:00:00 13:28:21 Visit Cam 96450.1.1 ity of 3.104.2.7 [place] .3.013025 Medica l .8 [facility] 2021-10-29 2021-10-29 Office Lucinda Wills 1.2.840.8 [id number] 03544 Univers 13:00:00 13:28:21 Visit Cam 56108.1.1 ity of 3.104.2.7 [place] .3.350354 Medica [facility] .8 [place] 2021-10-29 2021-10-29 Outpatient R LUCINDA WILLS [facility] [id number] Univers 13:00:00 13:28:21 ity of [facility] 2021-10-29 2021-10-29 Office Lucinda Wills 1.2.840.2 [id number] [id number] Univers 13:00:00 13:28:21 Visit Cam 01654.1.1 ity of 3.104.2.7 [place] .3.006774 Medica l .8 [place] 2021-10-29 2021-10-29 Outpatient R LUCINDA WILLS [facility] [id number] Univers 13:00:00 13:00:00 ity of [facility] 2021-10-29 2021-10-29 Outpatient R LUCINDA WILLS [facility] [id number] Univers 13:00:00 13:00:00 ity of [facility] 2021-10-29 2021-10-29 Travel 1.2.840.1 1.2.549.600 4512 6547 [facility] 00:00:00 00:00:00 02501.1.1 350.1.13.10 ity of 3.104.2.7 4.[place].3.698 [place] .3.[place]14138 084.8 [place] .8 [place] 2021-10-29 2021-10-29 Travel 1.2.840.1 1.2.614.744 0296 6547 [facility] 00:00:00 00:00:00 99845.1.1 350.1.13.10 ity of 3.104.2.7 4.[place]7.3.698 [place] .3.538707 084.8 [place] l .8 [place] 2021-10-29 2021-10-29 Travel 1.2.840.1 1.2.103.564 4022 6547 [facility] 00:00:00 00:00:00 48011.1.1 350.1.13.10 ity of 3.104.2.7 4.[place].7.3.698 [place] .3.126791 084.8 [place]ica l .8 [place] 2021-10-27 2021-10-27 Outpatient R SHIVANI VAUGHN [facility] [id number] Univers 14:30:00 15:05:35 SHIVANI VAUGHN adrian [facility] 2021-10-27 2021-10-27 Outpatient R SHIVANI VAUGHN [facility] [id number] Univers 14:30:00 14:30:00 SHIVANI VAUGHN [facility] 2021-10-27 2021-10-27 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 Pat Patel 1.2.840.1 [id number] [facility] 12:30:00 12:45:00 Visit Pcp-Lab 97168.1.1 ity of 3.104.2.7 [place] .3.248501 Medica l .8 [place] 2021-10-27 2021-10-27 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 Pat Patel 1.2.840.1 [id number] [facility] 12:30:00 12:45:00 Visit Pcp-Lab 03498.1.1 ity of 3.104.2.7 [place] .3.799149 Medica l .8 [place] 2021-10-27 2021-10-27 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 Pat Patel 1.2.840.1 [id number] [facility] 12:30:00 12:45:00 Visit Pcp-Lab 39539.1.1 ity of 3.104.2.7 [place] .3.509221 Medica l .8 [place] 2021-10-27 2021-10-27 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 Pat Patel 1.2.840.1 [id number] [facility] 12:30:00 12:45:00 Visit Pcp-Lab 82521.1.1 ity of 3.104.2.7 [place] .3.919052 Medica l .8 [place] 2021-10-27 2021-10-27 Travel 1.2.840.1 1.2.185.681 0434 7104 [facility] 00:00:00 00:00:00 29862.1.1 350.1.13.10 ity of 3.104.2.7 4.2.7.3.698 [place] .3.293031 084.8 Medica l .8 [place] 2021-10-27 2021-10-27 Travel 1.2.840.1 1.2.915.267 3326 7104 [facility] 00:00:00 00:00:00 29507.1.1 350.1.13.10 ity of 3.104.2.7 4.2.7.3.698 [place] .3.431323 084.8 Medica l .8 [place] 2021-10-27 2021-10-27 Travel 1.2.840.1 1.2.518.[address] [place] [address] 00:00:00 00:00:00 71478.1.1 350.1.13.10 ity of 3.104.2.7 4.2.7.3.698 [place] .3.625965 084.8 Medica l .8 [place] 2021-10-27 2021-10-27 Travel 1.2.840.1 1.2.314.[address] [place] [address] 00:00:00 00:00:00 05531.1.1 350.1.13.10 ity of 3.104.2.7 4.2.7.3.698 [place] .3.630668 084.8 Medica l .8 [place] 2021-10-06 2021-10-06 SHIVANI Hamm [facility] [id number] Univers 15:15:00 16:31:02 SHIVANI VAUGHN ity of [facility] 2021-10-06 2021-10-06 Travel 1.2.840.1 1.2.459.415 9065 3199 [facility] 00:00:00 00:00:00 40370.1.1 350.1.13.10 ity of 3.104.2.7 4.2.7.3.698 [place] .3.915804 084.8 Medica l .8 [place] 2021-10-06 2021-10-06 Travel 1.2.840.1 1.2.981.371 3674 3199 [facility] 00:00:00 00:00:00 59824.1.1 350.1.13.10 ity of 3.104.2.7 4.2.7.3.698 [place] .3.246297 084.8 [place] .8 [place] 2021-10-06 2021-10-06 Travel 1.2.840.1 1.2.447.562 1896 3199 [facility] 00:00:00 00:00:00 03162.1.1 350.1.13.10 ity of 3.104.2.7 4.2.7.3.698 [place] .3.099908 084.8 [place]ica l .8 [place] 2021-09-13 2021-09-13 Outpatient R SELF, [facility] [id number] Univers 11:00:00 11:00:00 JAMES ity o f [facility] 2021-09-02 2021-09-02 [facility] [id number] [facility] 13:00:00 13:00:00 HONORIO ity [facility] 2021-09-02 2021-09-02 [facility] [id number] [facility] 13:00:00 13:00:00 HONORIO ity [facility] 2021-09-02 2021-09-02 Travel 1.2.840.1 1.2.635.[address] [place] [address] 00:00:00 00:00:00 79225.1.1 350.1.13.10 ity of 3.104.2.7 4.2[place]7.3.698 [place] .3.550696 084.8 [place] l .8 [place] 2021-09-02 2021-09-02 Travel 1.2.840.1 1.2.936.826 1199 3611 [facility] 00:00:00 00:00:00 02056.1.1 350.1.13.10 ity of 3.104.2.7 4.2.7.3.698 [place] .3.662181 084.8 Medica l .8 [place] 2021-09-02 2021-09-02 Travel 1.2.840.1 1.2.808.615 2233 3611 [facility] 00:00:00 00:00:00 75526.1.1 350.1.13.10 ity of 3.104.2.[address] [facility] .3.622255 084.8 Medica l .8 [place] 2021-08-26 2021-08-26 Outpatient R [facility] [id number] Univers 12:59:32 23:59:00 BOUCHRA ity of [facility] 2021-08-26 2021-08-26 [facility], 1.2.840.9 [id number] Univers 12:59:32 23:59:00 Encounter Bouchra 17171.1.1 it y of 3.104.2.7 [place] .3.281721 Medica l .8 [place] 2021-08-26 2021-08-26 [facility], 1.2.840.8 [id number] Univers 12:59:32 23:59:00 Encounter Bouchra 11580.1.1 it y of 3.104.2.7 [place] .3.542611 Medica l .8 [place] 2021-08-26 2021-08-26 [facility], 1.2.840.0 [id number] [facility] 12:59:32 23:59:00 Encounter Bouchra 32143.1.1 it y of 3.104.2.7 [place] .3.903447 Medica l .8 [place] 2021-08-26 2021-08-26 Outpatient R ARNALDOHUGH [facility] [id number] [facility] 13:00:00 13:47:55 BOUCHRA ity [facility] 2021-08-26 2021-08-26 [facility], 1.2.840.8 [id number] [facility] 13:00:00 13:47:55 Visit Bouchra 09619.1.1 ity of 3.104.2.7 [place] .3.729039 Medica l .8 [place] 2021-08-26 2021-08-26 Outpatient R ARNALDOHUGH [facility] [id number] Univers 13:00:00 13:47:55 BOUCHRA ity of [facility] 2021-08-26 2021-08-26 Office Arnaldo, 1.2.840.3 [id number] [id number] Univers 13:00:00 13:47:55 Visit Bouchra 86667.1.1 ity of 3.104.2.7 [place] .3.364109 Medica l .8 [place] 2021-08-26 2021-08-26 Travel 1.2.840.1 1.2.111.173 4442 73 Univers 00:00:00 00:00:00 38434.1.1 350.1.13.10 ity of 3.104.2.7 4.[place]7.3.698 [place] .3.642875 084.8 Medica l .8 [place] 2021-08-26 2021-08-26 Travel 1.2.840.1 1.2.696.232 0470 73 Univers 00:00:00 00:00:00 23758.1.1 350.1.13.10 ity of 3.104.2.7 4.[place].7.3.698 [place] .3.623019 084.8 Medica l .8 [place] 2021-08-26 2021-08-26 Travel 1.2.840.1 1.2.314.312 6776 73 Univers 00:00:00 00:00:00 21150.1.1 350.1.13.10 ity of 3.104.2.7 4.[place].7.3.698 [place] .3.826504 084.8 Med[place] l .8 [place] 2021-08-03 2021-08-03 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 Sharita, Tasha Lab Main [facility] 1.2.8 40.114 [id number] Univers 17:15:00 17:30:00 Visit Shivani Vaughn 350.1.13.10 ity of [place] 4.2.7.2.686 Michelle NARVAEZIO [id number] Pr dical NAL 353 [facility] 2021-08-03 2021-08-03 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 Shivani Vaughn 1.2.840.3 [id number] Univers 17:15:00 17:30:00 Visit [facility] Lab Main 85476.1.1 ity of 3.104.2.7 [place] .3.773865 Medica l .8 [place] 2021-08-03 2021-08-03 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 LamarThu blackmonberly 1.2.840.1 [id number] [id number] Univers 17:15:00 17:30:00 Visit [facility] Lab Main 59780.1.1 ity of 3.104.2.7 [place] .3.131875 Medica l .8 [place] 2021-08-03 2021-08-03 Outpatient R SHIVANI VAUGHN [facility] [id number] Univers 17:15:00 17:15:00 SHIVANI VAUGHN ity [facility] 2021-08-02 2021-08-02 Outpatient R REYNALDO, [facility] [id number] Univers 10:15:00 11:07:50 JAMES erickson o f [facility] 2021-08-02 2021-08-02 Travel 1.2.840.1 1.2.865.183 6750 6890 [facility] 00:00:00 00:00:00 25926.1.1 350.1.13.10 ity of 3.104.2.7 4.[place].7.3.698 [place] .3.014421 084.8 Medica l .8 [place] 2021-08-02 2021-08-02 Travel 1.2.840.1 1.2.069.709 1541 6890 Univers 00:00:00 00:00:00 73799.1.1 350.1.13.10 ity of 3.104.2.7 4.2.7.3.698 [place] .3.063687 084.8 Medica l .8 [place] 2021-08-02 2021-08-02 Travel 1.2.840.1 1.2.514.837 6304 6890 Univers 00:00:00 00:00:00 08863.1.1 350.1.13.10 ity of 3.104.2.7 4.[place].7.3.698 [place] .3.569990 084.8 Med[place] l .8 [place] 2021-07-29 2021-07-29 Outpatient R [facility]RNALDOHUGH [facility] [id number] Univers 13:26:56 23:59:00 BOUCHRA erickson of [facility] 2021-07-29 2021-07-29 [facility], 1.2.840.6 [id number] Univers 13:26:56 23:59:00 Encounter Bouchra 35591.1.1 it y of 3.104.2.7 [place] .3.746640 Medica l .8 [place] 2021-07-29 2021-07-29 [facility], 1.2.840.5 [id number] Univers 13:26:56 23:59:00 Encounter Bouchra 30440.1.1 it y of 3.104.2.7 [place] .3.284587 Medica l .8 [place] 2021-07-29 2021-07-29 [facility], 1.2.840.9 [id number] Univers 13:26:56 23:59:00 Encounter Bouchra 33004.1.1 it y of 3.104.2.7 [place] .3.879995 Medica l .8 [place] 2021-07-29 2021-07-29 [facility] 1.2.334.045 0451 4919 Univers 13:20:00 15:16:49 Visit Bouchra ARELLANO 350.1.13.10 it y of CARE 4.2.7.2.686 Michelle VALDES [id number] Pr dical 198 [place] 2021-07-29 2021-07-29 Outpatient R [facility]RNALDOHUGH [facility] [id number] Univers 13:20:00 15:16:49 BOUCHRA erickson [facility] 2021-07-29 2021-07-29 Office Arnaldo, 1.2.840.5 [id number] 906 [id number] Univers 13:20:00 15:16:49 Visit Bouchra 68135.1.1 ity of 3.104.2.7 [place] .3.467277 Medica l .8 [place] 2021-07-29 2021-07-29 Office Arnaldo, 1.2.840.5 [id number] 906 [id number] Univers 13:20:00 15:16:49 Visit Bouchra 90021.1.1 ity of 3.104.2.7 [place] .3.645831 Medica l .8 [place] 2021-07-29 2021-07-29 Dustin Mcintosh, 1.2.840.7 [id number] [id number] Univers 00:00:00 00:00:00 (Out) Bouchra 38805.1.1 ity of 3.104.2.7 [place] .3.869739 Medica l .8 [place] 2021-07-29 2021-07-29 Travel 1.2.840.1 1.2.472.878 1796 9351 Univers 00:00:00 00:00:00 38681.1.1 350.1.13.10 ity of 3.104.2.7 4.2.7.3.698 [place] .3.751335 084.8 Medica l .8 [place] 2021-07-29 2021-07-29 Dustin Mcintosh, 1.2.840.4 [id number] 908 [id number] Univers 00:00:00 00:00:00 (Out) Bouchra 05174.1.1 ity of 3.104.2.7 [place] .3.026885 Medica l .8 [place] 2021-07-29 2021-07-29 Travel 1.2.840.1 1.2.291.029 9386 9351 Univers 00:00:00 00:00:00 74461.1.1 350.1.13.10 ity of 3.104.2.7 4.2.7.3.698 [place] .3.071345 084.8 Medica l .8 [place] 2021-07-29 2021-07-29 Dustin Mcintosh, 1.2.840.3 [id number] [id number] Univers 00:00:00 00:00:00 (Out) Bouchra 32918.1.1 ity of 3.104.2.7 [place] .3.092988 Medica l .8 [place] 2021-07-29 2021-07-29 Travel 1.2.840.1 1.2.250.830 2405 9351 Univers 00:00:00 00:00:00 38158.1.1 350.1.13.10 ity of 3.104.2.7 4.2.7.3.698 [place] .3.409296 084.8 Medica l .8 [place] 2021-07-22 2021-07-22 [facility] 1.2.840.114 9 [id number] Univers 14:00:00 23:59:00 Encounter , Ryan COLMENARES 350.1.13.10 ity of [place] 4.2.7.2.686 [facility] [id number] [facility] torito 801 [place] 2021-07-22 2021-07-22 [facility] 1.2.840.2 [id number] Univers 14:00:00 23:59:00 Encounter , Ryan 43197.1.1 it y of 3.104.2.7 [place] .3.416753 Medica l .8 [place] 2021-07-22 2021-07-22 [facility] 1.2.840.5 [id number] Univers 14:00:00 23:59:00 Encounter , Ryan 12211.1.1 it y of 3.104.2.7 [place] .3.959785 Medica l .8 [place] 2021-07-22 2021-07-22 [facility] 1.2.840.1 [id number] Univers 14:00:00 23:59:00 Encounter , Ryan 60956.1.1 it y of 3.104.2.7 [place] .3.704369 Medica l .8 [place] 2021-07-22 2021-07-22 [facility] 1.2.840.114 9 [id number] Univers 10:46:11 13:59:00 Encounter , Ryan SPECIALTY 350.1.13.10 ity of CARE 4.2.7.2.686 [facility] AT [id number] Pr aidee ROSALESAdrian 809 [facility] 2021-07-22 2021-07-22 [facility] 1.2.840.6 [id number] Univers 10:46:11 13:59:00 Encounter , Ryan 75800.1.1 it y of 3.104.2.7 [place] .3.390454 Medica l .8 [place] 2021-07-22 2021-07-22 [facility] 1.2.840.5 [id number] Univers 10:46:11 13:59:00 Encounter , Ryan 24095.1.1 it y of 3.104.2.7 [place] .3.736007 Medica l .8 [place] 2021-07-22 2021-07-22 [facility] 1.2.840.8 [id number] Univers 10:46:11 13:59:00 Encounter , Ryan 43156.1.1 it y of 3.104.2.7 [place] .3.086116 Medica l .8 [place] 2021-07-22 2021-07-22 Outpatient R GALARZA, [facility] [id number] Univers 13:00:00 13:45:02 HONORIO ity [facility] 2021-07-22 2021-07-22 Outpatient R GALARZA, [facility] [id number] Univers 13:00:00 13:45:02 HONORIO ity [facility] 2021-07-22 2021-07-22 Outpatient R GALARZA, [facility] [id number] Univers 13:00:00 13:00:00 HONORIO ity [facility] 2021-07-22 2021-07-22 Office Alijanipantonieta 1.2.840.5 [id number] Univers 10:15:00 11:55:28 Visit , Ryan 85481.1.1 ity of 3.104.2.7 [place] .3.885891 Medica l [address] [place] [address] 2021-07-22 2021-07-22 Outpatient R ALIJANIPOUR [facility] [id number] Univers 10:15:00 11:55:28 , RYAN ity [facility] 2021-07-22 2021-07-22 Office Alijanipour 1.2.840.7 [id number] Univers 10:15:00 11:55:28 Visit , Ryan 79019.1.1 ity of 3.104.2.7 [place] .3.865577 Medica l .8 [place] 2021-07-22 2021-07-22 Office Alijanipour 1.2.840.6 [id number] Univers 10:15:00 11:55:28 Visit , Ryan 36430.1.1 ity of 3.104.2.7 [place] .3.415641 Medica l .8 [place] 2021-07-22 2021-07-22 Outpatient [facility] [id number] Univers 10:46:11 10:46:11 , RYAN ity of [facility] 2021-07-22 2021-07-22 [id number] [id number] Univers 10:15:00 10:15:00 , RYAN ity of [facility] 2021-07-22 2021-07-22 Outpatient R [facility] [id number] [id number] Univers 10:15:00 10:15:00 , RYAN ity of [facility] 2021-07-22 2021-07-22 Abstract Alijanipour 1.2.840.3 [id number] Univers 00:00:00 00:00:00 , Ryan 73780.1.1 ity of 3.104.2.7 [place] .3.914953 Medica l .8 [place] 2021-07-22 2021-07-22 Travel 1.2.840.1 1.2.010.343 6254 8425 Univers 00:00:00 00:00:00 49762.1.1 350.1.13.10 ity of 3.104.2.7 4.2.7.3.698 [place] .3.874806 084.8 Medica l .8 [place] 2021-07-22 2021-07-22 Letter Alijanipour 1.2.840.4 [id number] Univers 00:00:00 00:00:00 (Out) , Ryan 66738.1.1 ity of 3.104.2.7 [place] .3.837858 Medica l .8 [place] 2021-07-22 2021-07-22 Letter Alijanipour 1.2.840.1 [id number] Univers 00:00:00 00:00:00 (Out) , Ryan 62449.1.1 ity of 3.104.2.7 [place] .3.153358 Medica l .8 [place] 2021-07-22 2021-07-22 Travel 1.2.840.1 1.2.231.310 3459 8425 Univers 00:00:00 00:00:00 49561.1.1 350.1.13.10 ity of 3.104.2.7 4.2.7.3.698 [place] .3.862555 084.8 Medica l .8 [place] 2021-07-22 2021-07-22 Abstract Alijanipour 1.2.840.9 [id number] Univers 00:00:00 00:00:00 , Ryan 52403.1.1 ity of 3.104.2.7 [place] .3.854005 Medica l .8 [place] 2021-07-22 2021-07-22 Letter Alijanipour 1.2.840.5 [id number] Univers 00:00:00 00:00:00 (Out) , Ryan 89459.1.1 ity of 3.104.2.7 [place] .3.610682 Medica l .8 [place] 2021-07-22 2021-07-22 Travel 1.2.840.1 1.2.356.277 7477 8425 Univers 00:00:00 00:00:00 93856.1.1 350.1.13.10 ity of 3.104.2.7 4.2.7.3.698 [place] .3.013315 084.8 Medica l .8 [place] 2021-07-22 2021-07-22 Abstract Alijanipour 1.2.840.2 [id number] Univers 00:00:00 00:00:00 , Ryan 48457.1.1 ity of 3.104.2.7 [place] .3.203356 Medica l .8 [place] 2021-07-22 2021-07-22 Letter Alijanipour 1.2.840.4 [id number] Univers 00:00:00 00:00:00 (Out) , Ryan 03357.1.1 ity of 3.104.2.7 [place] .3.475653 Medica l .8 [place] 2021-07-22 2021-07-22 Travel 1.2.840.1 1.2.387.018 6641 8425 Univers 00:00:00 00:00:00 97672.1.1 350.1.13.10 ity of 3.104.2.7 4.2.7.3.698 [place] .3.641999 084.8 Medica l .8 [place] 2021-07-22 2021-07-22 Abstract Alivictorinaipantonieta 1.2.840.4 [id number] Univers 00:00:00 00:00:00 , Ryan 91924.1.1 ity of 3.104.2.7 [place] .3.513793 Medica l .8 [place] 2021-07-21 2021-07-21 Outpatient R RODERICK [facility] [id number] Univers 14:30:00 15:30:35 [facility] 2021-07-21 Outpatient R RODERICK [facility] [id number] Univers 14:30:00 15:30:35 [facility] 2021-07-21 Outpatient R RODERICK [facility] [id number] Univers 14:30:00 14:30:00 [facility] 2021-07-15 2021-07-15 Orders Doctor 1.2.840.9 [id number] Univers 00:00:00 00:00:00 Only Unassigned, 50328.1.1 ity of [place] 3.104.2.7 [place] .3.107263 Medica l .8 [place] 2021-07-15 2021-07-15 Orders Doctor 1.2.840.7 [id number] Univers 00:00:00 00:00:00 Only Unassigned, 25321.1.1 ity of [place] 3.104.2.7 [place] .3.490709 Medica l .8 [place] 2021-07-15 2021-07-15 Orders Doctor 1.2.840.9 [id number] Univers 00:00:00 00:00:00 Only Unassigned, 09456.1.1 ity of [place] 3.104.2.7 [place] .3.776769 Medica l .8 [place] 2021-07-15 2021-07-15 Orders Doctor 1.2.840.1 [id number] Univers 00:00:00 00:00:00 Only Unassigned, 93365.1.1 ity of [place] 3.104.2.7 [place] .3.323682 Medica l .8 [place] 2021-07-09 2021-07-09 Emergency [facility] [id number] [facility] 12:46:00 12:46:00 14 2021-07-08 2021-07-08 [facility] [id number] Univers 13:00:00 13:00:00 HONORIO ity of [facility] 2021-07-08 2021-07-08 Outpatient R GEOVANNI, [facility] [id number] Univers 13:00:00 13:00:00 HONORIO ity [facility] 2021-06-30 2021-06-30 Telephone Nalaurencer, 1.2.840.3 [id number] 900 [id number] Univers 00:00:00 00:00:00 Jerry 10367.1.1 ity of 3.104.2.7 [place] .3.867752 Medica l .8 [place] 2021-06-30 2021-06-30 Telephone Nazeer, 1.2.840.2 [id number] 900 [id number] Univers 00:00:00 00:00:00 Jerry 40062.1.1 ity of 3.104.2.7 [place] .3.719261 Medica l .8 [place] 2021-06-30 2021-06-30 Telephone Nazeer, 1.2.840.5 [id number] 900 [id number] Univers 00:00:00 00:00:00 Jerry 47824.1.1 ity of 3.104.2.7 [place] .3.189446 Medica l .8 [place] 2021-06-30 2021-06-30 Telephone Nazeer, 1.2.840.3 [id number] 900 [id number] Univers 00:00:00 00:00:00 Jerry 89012.1.1 ity of 3.104.2.7 [place] .3.685477 Medica l .8 [place] 2021-06-24 2021-06-24 Imm/Inj Nurse, Pcp Immunization [facility] 1. 2.840.114 [id number] Univers 16:30:00 16:40:00 Visit Gideon Montez PRIMARY 350.1.13. 10 ity of CARE 4.2.7.2.686 Michelle VALDES [id number] Pr dical 421 [place] 2021-06-24 2021-06-24 Imm/Inj Gideon Montez 1.2.840.9 [id number] Univers 16:30:00 16:40:00 Visit Nurse, Pcp Immunization 36696.1.1 ity of 3.104.2.7 [place] .3.658333 Medica l .8 [place] 2021-06-24 2021-06-24 Imm/Inj Gideon Montez 1.2.840.6 [id number] [id number] Univers 16:30:00 16:40:00 Visit Nurse, Pcp Immunization 88546.1.1 ity of 3.104.2.7 [place] .3.315024 Medica l .8 [place] 2021-06-24 2021-06-24 Imm/Inj Gideon Montez 1.2.840.5 [id number] Univers 16:30:00 16:40:00 Visit Nurse, Pcp Immunization 14239.1.1 ity of 3.104.2.7 [place] .3.034095 Medica l .8 [place] 2021-06-24 2021-06-24 Imm/Inj Gideon Montez 1.2.840.5 [id number] Univers 16:30:00 16:40:00 Visit Nurse, Pcp Immunization 70509.1.1 ity of 3.104.2.7 [place] .3.314818 Medica l .8 [place] 2021-06-24 2021-06-24 Outpatient Escobar MONTEZ, [facility] [id number] Univers 16:30:00 16:30:00 GIDEON itadrian of [facility] 2021-06-24 2021-06-24 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 Pcp-Lab [facility] 1.2.840.114 899 77557 Univers 16:15:00 16:30:00 Visit Bethel Isaacs PRIMARY 350.1.13.10 ity of CARE 4.2.7.2.686 Harleymustapha lopez KEISHA [id number] Pr dical 366 [place] 2021-06-24 2021-06-24 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 Bethel Isaacs 1.2.840.3 056 [id number] Univers 16:15:00 16:30:00 Visit Pcp-Lab 04485.1.1 ity of 3.104.2.7 [place] .3.637698 Medica l .8 [place] 2021-06-24 2021-06-24 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 Bethel Isaacs 1.2.840.0 [id number] Univers 16:15:00 16:30:00 Visit Pcp-Lab 97798.1.1 ity of 3.104.2.7 [place] .3.103111 Medica l .8 [place] 2021-06-24 2021-06-24 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 Bethel Isaacs 1.2.840.5 948 [id number] Univers 16:15:00 16:30:00 Visit Pcp-Lab 59639.1.1 ity of 3.104.2.7 [place] .3.088516 Medica l .8 [place] 2021-06-24 2021-06-24 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 Bethel Isaacs 1.2.840.5 966 [id number] Univers 16:15:00 16:30:00 Visit Pcp-Lab 21324.1.1 ity of 3.104.2.7 [place] .3.300170 Medica l .8 [place] 2021-06-24 2021-06-24 Outpatient R KOURTNEY, [facility] [id number] Univers 16:15:00 16:15:00 BETHEL erickson [facility] 2021-06-24 2021-06-24 Outpatient R KOURTNEY, [facility] [id number] Univers 14:40:00 16:08:00 BETHEL dre [facility] 2021-06-24 2021-06-24 Office Bethel Isaacs 1.2.840.5 [id number] Univers 14:40:00 16:08:00 Visit Health, Tg Hormone 00021.1.1 ity of 3.104.2.7 [place] .3.131691 Medica l .8 [place] 2021-06-24 2021-06-24 [facility] [id number] Univers 14:40:00 16:08:00 BETHEL erickson [facility] 2021-06-24 2021-06-24 Office Bethel Isaacs 1.2.840.5 [id number] [id number] Univers 14:40:00 16:08:00 Visit Health, Tg Hormone 07210.1.1 ity of 3.104.2.7 [place] .3.391657 Medica l [address] [place] [address] 2021-06-24 2021-06-24 Office Bethel Isaacs 1.2.840.2 475124 5339 [id number] Univers 14:40:00 16:08:00 Visit Health, Tg Hormone 05486.1.1 ity of 3.104.2.7 [place] .3.627014 Medica l .8 [place] 2021-06-24 2021-06-24 Office Bethel Isaacs 1.2.840.6 378128 3225 [id number] Univers 14:40:00 16:08:00 Visit Health, Tg Hormone 81892.1.1 ity of 3.104.2.7 [place] .3.775441 Medica l .8 [place] 2021-06-24 2021-06-24 [facility] [id number] [facility] 14:40:00 14:40:00 BETHEL ity of [facility] 2021-06-24 2021-06-24 Travel 1.2.840.1 1.2.699.195 2983 0448 [facility] 00:00:00 00:00:00 59839.1.1 350.1.13.10 ity of 3.104.2.7 4.2.7.3.698 [place] .3.840483 084.8 Medica l .8 [place] 2021-06-24 2021-06-24 Travel 1.2.840.1 1.2.310.569 5165 0448 Univers 00:00:00 00:00:00 62140.1.1 350.1.13.10 ity of 3.104.2.7 4.2.7.3.698 [place] .3.795933 084.8 Medica l .8 [place] 2021-06-24 2021-06-24 Travel 1.2.840.1 1.2.693.309 9905 0448 Univers 00:00:00 00:00:00 43861.1.1 350.1.13.10 ity of 3.104.2.7 4.2.7.3.698 [place] .3.669246 084.8 Medica l .8 [place] 2021-06-24 2021-06-24 Travel 1.2.840.1 1.2.724.199 6434 0448 Univers 00:00:00 00:00:00 61762.1.1 350.1.13.10 ity of 3.104.2.7 4.2.7.3.698 [place] .3.104634 084.8 Medica l .8 [place] 2021-06-17 2021-06-17 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 James Jacobs 1.2.840.4 [id number] [facility] 16:00:00 16:15:00 Visit Pcp-Lab 78175.1.1 ity of 3.104.2.7 [place] .3.630003 Medica l .8 [place] 2021-06-17 2021-06-17 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 Self, James 1.2.840.9 771613 5051 [id number] Univers 16:00:00 16:15:00 Visit Pcp-Lab 79322.1.1 ity of 3.104.2.7 [place] .3.826737 Medica l .8 [place] 2021-06-17 2021-06-17 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 Self, James 1.2.840.0 004445 [id number] Univers 16:00:00 16:15:00 Visit Pcp-Lab 60724.1.1 ity of 3.104.2.7 [place] .3.030545 Medica l .8 [place] 2021-06-17 2021-06-17 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 Self, James 1.2.840.6 [id number] 6126 [id number] Univers 16:00:00 16:15:00 Visit Pcp-Lab 28577.1.1 ity of 3.104.2.7 [place] .3.540468 Medica l .8 [place] 2021-06-17 2021-06-17 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 Self, James 1.2.840.6 [id number] 0871 [id number] Univers 16:00:00 16:15:00 Visit Pcp-Lab 19051.1.1 ity of 3.104.2.7 [place] .3.144476 Medica l .8 [place] 2021-06-17 2021-06-17 [facility] [id number] Univers 14:00:00 14:00:00 HONORIO ity [facility] 2021-06-17 2021-06-[address] [facility] [id number] Univers 14:00:00 14:00:00 HONORIO ity [facility] 2021-06-17 2021-06-17 Travel 1.2.840.1 1.2.533.022 4989 3149 Univers 00:00:00 00:00:00 85339.1.1 350.1.13.10 ity of 3.104.2.7 4.2.7.3.698 [place] .3.174259 084.8 Medica l .8 [place] 2021-06-17 2021-06-17 Travel 1.2.840.1 1.2.154.576 3237 3149 Univers 00:00:00 00:00:00 14394.1.1 350.1.13.10 ity of 3.104.2.7 4.2.7.3.698 [place] .3.599994 084.8 Medica l .8 [place] 2021-06-17 2021-06-17 Travel 1.2.840.1 1.2.362.242 2785 3149 Univers 00:00:00 00:00:00 26531.1.1 350.1.13.10 ity of 3.104.2.7 4.2.7.3.698 [place] .3.801517 084.8 [facility]ica l .8 [facility] 2021-06-17 2021-06-17 Travel 1.2.840.1 1.2.311.783 5563 3149 [facility] 00:00:00 00:00:00 70653.1.1 350.1.13.10 ity of 3.104.2.7 4.2.7.3.698 [place] .3.182396 084.8 Medica l .8 [facility] 2021-06-17 2021-06-17 Travel 1.2.840.1 1.2.430.970 7860 3149 [facility] 00:00:00 00:00:00 28413.1.1 350.1.13.10 ity of 3.104.2.7 4.2.7.3.698 [place] .3.314548 084.8 Medica l .8 [facility] 2021-06-14 2021-06-14 Outpatient R SELF, [facility] [id number] [facility] 11:00:00 12:13:42 JAMES erickson o f [facility] 2021-06-14 2021-06-14 Travel 1.2.840.1 1.2.208.409 8820 7514 [facility] 00:00:00 00:00:00 41850.1.1 350.1.13.10 ity of 3.104.2.7 4.2.7.3.698 [place] .3.037741 084.8 Medica l .8 [place] 2021-06-14 2021-06-14 Travel 1.2.840.1 1.2.718.222 2057 7514 [facility] 00:00:00 00:00:00 37017.1.1 350.1.13.10 ity of 3.104.2.7 4.2.7.3.698 [place] .3.071998 084.8 Medica l .8 [place] 2021-06-14 2021-06-14 Travel 1.2.840.1 1.2.216.279 9432 7514 [facility] 00:00:00 00:00:00 50906.1.1 350.1.13.10 ity of 3.104.2.7 4.2.7.3.698 [place] .3.357363 084.8 Medica l .8 [place] 2021-06-14 2021-06-14 Travel 1.2.840.1 1.2.270.679 8335 7514 [facility] 00:00:00 00:00:00 34309.1.1 350.1.13.10 ity of 3.104.2.7 4.2.7.3.698 [place] .3.865532 084.8 Medica l .8 [place] 2021-06-10 2021-06-10 Patient Burton, 1.2.840.4 [id number] 075 [facility] 00:00:00 00:00:00 Outreach Britt J 90035.1.1 ity of 3.104.2.7 [place] .3.293725 Medica l .8 [place] 2021-06-10 2021-06-10 Patient Burton, 1.2.840.7 [id number] 075 [facility] 00:00:00 00:00:00 Outreach Britt J 87694.1.1 ity of 3.104.2.7 [place] .3.922559 Medica l .8 [place] 2021-06-10 2021-06-10 Patient Burton, 1.2.840.3 [id number] 075 [facility] 00:00:00 00:00:00 Outreach Britt J 52280.1.1 ity of 3.104.2.7 [place] .3.171797 Medica l .8 [place] 2021-06-10 2021-06-10 Patient Burton, 1.2.840.3 [id number] 075 [facility] 00:00:00 00:00:00 Outreach Britt Rm 56898.1.1 ity of 3.104.2.7 [place] .3.508978 Medica l .8 [place] 2021-06-03 2021-06-03 Outpatient Escobar GALARZA, [facility] [id number] [facility] 14:00:00 14:22:42 HONORIO ity of [facility] 2021-06-03 2021-06-03 Travel 1.2.840.1 1.2.416.302 7625 4897 [facility] 00:00:00 00:00:00 92233.1.1 350.1.13.10 ity of 3.104.2.7 4.2.7.3.698 [place] .3.825425 084.8 Medica l .8 [place] 2021-06-03 2021-06-03 Travel 1.2.840.1 1.2.742.937 5868 4897 [facility] 00:00:00 00:00:00 72020.1.1 350.1.13.10 ity of 3.104.2.7 4.2.7.3.698 [place] .3.555417 084.8 Medica l .8 [place] 2021-06-03 2021-06-03 Travel 1.2.840.1 1.2.790.685 5973 4897 [facility] 00:00:00 00:00:00 33359.1.1 350.1.13.10 ity of 3.104.2.7 4.2.7.3.698 [place] .3.647075 084.8 Medica l .8 [place] 2021-06-03 2021-06-03 Travel 1.2.840.1 1.2.869.127 1958 4897 [facility] 00:00:00 00:00:00 23840.1.1 350.1.13.10 ity of 3.104.2.7 4.2.7.3.698 [place] .3.270463 084.8 Medica l .8 [facility] 2021-05-26 2021-05-26 [facility], 1.2.840.0 [id number] 9138 [facility] 09:40:00 23:59:00 Encounter Bukre De [place] 40635.1.1 ity of 3.104.2.7 [place] .3.855647 Medica l .8 [facility] 2021-05-26 2021-05-26 [facility], 1.2.840.9 [id number] 9138 [facility] 09:40:00 23:59:00 Encounter Burke De [place] 63525.1.1 ity of 3.104.2.7 [place] .3.576104 Medica l .8 [place] 2021-05-26 2021-05-26 [facility], 1.2.840.5 [id number] 9138 [facility] 09:40:00 23:59:00 Encounter Burke [place] 48406.1.1 ity of 3.104.2.7 [place] .3.721129 Medica l .8 [place] 2021-05-26 2021-05-26 Outpatient R STONE, [facility] N[facility] [id number] [facility] 00:00:00 00:00:00 BURKE erickson of [facility] 2021-05-25 2021-05-25 Emergency [facility] [id number] [facility] 23:19:00 23:19:00 94 2021-05-24 2021-05-24 Outpatient R SELF, [facility] [id number] [facility] 11:00:00 11:31:18 JAMES erickson o f [facility] 2021-05-24 2021-05-24 Travel 1.2.840.1 1.2.177.171 1924 1167 [facility] 00:00:00 00:00:00 11271.1.1 350.1.13.10 ity of 3.104.2.7 4.2.7.3.698 [place] .3.905837 084.8 Medica l .8 [place] 2021-05-24 2021-05-24 Travel 1.2.840.1 1.2.744.567 7003 1167 [facility] 00:00:00 00:00:00 58619.1.1 350.1.13.10 ity of 3.104.2.7 4.2.7.3.698 [place] .3.257388 084.8 Medica l .8 [facility] 2021-05-24 2021-05-24 Travel 1.2.840.1 1.2.988.577 9467 1167 [facility] 00:00:00 00:00:00 57450.1.1 350.1.13.10 ity of 3.104.2.7 4.2.7.3.698 [place] .3.847374 084.8 Medica l .8 [place] 2021-05-10 2021-05-10 Outpatient R REYNALDO, [facility] [id number] Univers 08:45:00 08:45:00 JAMES erickson o f [facility] 2021-04-29 2021-04-29 Outpatient R GEOVANNI [facility] [id number] Univers 13:00:00 13:33:16 HONORIO ity [facility] 2021-04-29 2021-04-29 Outpatient R GEOVANNI [facility] [id number] Univers 13:00:00 13:00:00 PATERSON ity [facility] 2021-04-29 2021-04-29 Travel 1.2.840.1 1.2.202.063 [id number] Univers 00:00:00 00:00:00 32143.1.1 350.1.13.10 ity of 3.104.2.7 [place].698 [place] .3.[place] 084.8 [place] .8 [place] 2021-04-29 2021-04-29 Travel 1.2.840.1 1.2.295.993 9618 6843 Univers 00:00:00 00:00:00 65359.1.1 350.1.13.10 ity of 3.104.2.[place].698 [place].006[place] 084.8 [place] .8 [place] 2021-03-182021-03-18 Outpatient R GEOVANNI, [facility] [id number] Univers 15:00:00 15:00:00 HONORIO itadrian [facility] 2021-03-18 2021-03-18 Travel 1.2.840.1 1.2.746.313 [id number] Univers 00:00:00 00:00:00 62913.1.1 350.1.13.10 ity of 3.104.2.[place].698 [place]3.2566[place] 084.8 [place] .8 [place] 2021-03-15 2021-03-15 Outpatient R SELF, [facility] [id number] Univers 10:15:00 10:15:00 JAMES erickson o [facility] 2021-02-25 2021-02-25 Outpatient R GEOVANNI, [facility] [id number] Univers 09:00:00 09:00:00 HONORIO itadrian [facility] 2021-02-25 2021-02-25 Travel 1.2.840.1 1.2.662.809 [id number] Univers 00:00:00 00:00:00 90544.1.1 350.1.13.10 ity of 3.104.2.[place]3.8749[place] 084.8 [place] .8 [place] 2021-02-15 2021-02-15 Outpatient R SELF, [facility] [id number] Univers 11:00:00 11:00:00 JAMES erickson o [facility] 2021-02-15 2021-02-15 Travel 1.2.840.1 1.2.124.001 [id number] [id number] Univers 00:00:00 00:00:00 07630.1.1 350.1.13.10 ity of 3.104.2.[place]3.974[place] 084.8 [place] .8 [place] 2021-02-11 2021-02-11 Outpatient R GEOVANNI, [facility] [id number] Univers 11:00:00 11:00:00 HONORIO ity [facility] 2021-02-11 2021-02-11 Travel 1.2.840.1 1.2.227.944 [id number] Univers 00:00:00 00:00:00 59375.1.1 350.1.13.10 ity of 3.104.2.7 [place].698 [place]3.042251 084.8 [place] .8 [place] 2021-01-28 2021-01-28 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 Paolo Rivera 1.2.840.3 [id number] Univers 13:53:29 14:08:29 Visit Pcp-Lab 24957.1.1 ity of 3.104.2.7 [place] .3.243689 Medica l .8 [place] 2021-01-28 2021-01-28 Outpatient R GEOVANNI, [facility] [id number] Univers 13:00:00 13:00:00 [facility] 2021-01-28 2021-01-28 Travel 1.2.840.1 1.2.402.739 [id number] [id number] Univers 00:00:00 00:00:00 59083.1.1 350.1.13.10 ity of 3.104.2.[place].3.698 [place]3.029926 084.8 Medica l .8 [place] 2021-01-25 2021-01-25 Outpatient R SELF, [facility] [id number] Univers 09:30:00 09:30:00 JAMES erickson o f [facility] 2021-01-25 2021-01-25 Travel 1.2.840.1 1.2.379.872 0684 [id number] Univers 00:00:00 00:00:00 11090.1.1 350.1.13.10 ity of 3.104.2.7 [place]7.3.698 [place]3.305123 084.8 [place]ica l .8 [place] 2021-01-13 2021-01-13 Outpatient R SELF, [facility] [id number] Univers 16:00:00 16:00:00 JAMES braxton f [facility] 2021-01-13 2021-01-13 Travel 1.2.840.1 1.2.739.836 0446 8345 Univers 00:00:00 00:00:00 44322.1.1 350.1.13.10 ity of 3.104.2.7 [place]7.3.698 [place] .3.207602 084.8 [place]ica l .8 [place] 2020-12-31 2020-12-31 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 Tim Holguin 1.2.840.5 [id number] Univers 16:38:39 16:54:09 Visit Pcp-Lab 96082.1.1 ity of 3.104.2.7 [place] .3.306460 Medica l .8 [place] 2020-12-31 2020-12-31 Outpatient Escobar GALARZA [facility] [id number] Univers 16:00:00 16:00:00 HONORIO ity [facility] 2020-12-31 2020-12-31 Travel 1.2.840.1 1.2.342.397 [id number] [id number] Univers 00:00:00 00:00:00 55652.1.1 350.1.13.10 ity of 3.104.2.7 [place].698 [place]3.435622 084.8 Medica l .8 [place] 2020-12-28 2020-12-28 Orders Doctor 1.2.840.3 [id number] Univers 00:00:00 00:00:00 Only Unassigned, 95471.1.1 ity of [place] 3.104.2.7 [place] .3.550409 Medica l .8 [place] 2020-12-24 2020-12-24 Outpatient Escobar HOLGUIN [facility] [id number] Univers 11:00:00 11:00:00 TIM it y [facility] 2020-12-24 2020-12-24 Travel 1.2.840.1 1.2.798.599 [id number] [id number] Univers 00:00:00 00:00:00 49558.1.1 350.1.13.10 ity of 3.104.2.7 [place]7.3.698 [place]3.278914 084.8 Medica l .8 [place] 2020-12-17 2020-12-17 Outpatient Escobar GALARZA [facility] [id number] Univers 11:00:00 11:00:00 [facility] 2020-11-26 2020-11-26 Outpatient Escobar GALARZA [facility] [id number] Univers 16:00:00 16:00:00 [facility] 2020-11-26 2020-11-26 Travel 1.2.840.1 1.2.707.438 [id number] [id number] Univers 00:00:00 00:00:00 76253.1.1 350.1.13.10 ity of 3.104.2.7 [place]7.3.698 [place] .3.307666 084.8 Medica l .8 [place] 2020-11-26 2020-11-26 Travel 1.2.840.1 1.2.503.726 8385 0854 Univers 00:00:00 00:00:00 77102.1.1 350.1.13.10 ity of 3.104.2.7 4.[place]7.3.698 [place] .3.865380 084.8 Medica l .8 [place] 2020-11-21 2020-11-21 Imm/Inj Gideon Montez 1.2.840.2 [id number] Univers 10:04:35 10:09:35 Visit Immunization, Doe Hill [facility] [employer] 90055.1.1 ity of 3.104.2.7 [place] .3.941024 Medica l .8 [place] 2020-11-21 2020-11-21 Outpatient Escobar MONTEZ [facility] [id number] Univers 10:05:00 10:05:00 GIDEON erickson [facility] 2020-11-17 2020-11-17 Outpatient R CHELSY ROMO [facility] [id number] Univers 15:45:00 15:45:00 ity [facility] 2020-11-17 2020-11-17 Travel 1.2.840.1 1.2.214.236 0905 [id number] Univers 00:00:00 00:00:00 80699.1.1 350.1.13.10 ity of 3.104.2.7 [place].3.698 [place]3.421873 084.8 Medica l .8 [place] 2020-11-16 2020-11-16 Orders Doctor 1.2.840.8 [id number] Univers 00:00:00 00:00:00 Only Unassigned, 80099.1.1 ity of [place] 3.104.2.7 [place] .3.026974 Medica l .8 [place] 2020-11-12 2020-11-12 Outpatient R GEOVANNI [facility] [id number] Univers 08:00:00 08:00:00 HONORIO ity of [facility] 2020-11-12 2020-11-12 Travel 1.2.840.1 1.2.998.014 [id number] [id number] Univers 00:00:00 00:00:00 45096.1.1 350.1.13.10 ity of 3.104.2.7 [place]7.3.698 [place] .3.827296 084.8 Medica l .8 [place] 2020-10-29 2020-10-29 Outpatient Escobar HOLGUIN [facility] [id number] Univers 09:30:00 09:30:00 TIM bernal y of [facility] 2020-10-24 2020-10-24 Imm/Inj Gio Martinez 1.2.840.1 [id number] Univers 09:54:36 10:09:56 Visit Immunization, Doe [place] [facility] [employer] 17718.1.1 ity of 3.104.2.7 [place] .3.743271 Medica l .8 [place] 2020-10-24 2020-10-24 Outpatient Escobar MARTINEZ [facility] [id number] Univers 10:00:00 10:00:00 GIO ity of [facility] 2020-10-24 2020-10-24 Travel 1.2.840.1 1.2.823.398 9979 [id number] Univers 00:00:00 00:00:00 15145.1.1 350.1.13.10 ity of 3.104.2.7 [place].3.698 [place] .3.815193 084.8 Medica [facility] [place] 2020-09-25 2020-09-26 Emergency E PARRY, [facility] [id number] [facility] 23:49:00 10:04:00 [facility] 2020-09-17 2020-09-17 Telephone Simon, 1.2.840.8 [id number] Univers 00:00:00 00:00:00 Nilton Mustapha 50148.1.1 i ty of 3.104.2.7 [place] .3.371222 Medica [address] 2020-08-18 2020-08-18 Outpatient R CHELSY ORMO [facility] [id number] Univers 15:00:00 15:00:00 ity of [facility] 2020-07-08 2020-07-08 Office Simon, 1.2.840.6 [id number] Univers 12:55:33 15:36:41 Visit Nilton Luciano 34426.1.1 i ty of 3.104.2.7 [place] .3.805274 Medica [address] 2020-07-08 2020-07-08 Outpatient R NILTON MONTES [facility] [id number] Univers 13:30:00 13:30:00 NILTON MONTES ity of [facility] 2020-07-08 2020-07-08 Orders Doctor 1.2.840.9 [id number] Univers 00:00:00 00:00:00 Only Unassigned, 86836.1.1 ity of [place] 3.104.2.7 [place] .3.700542 Medica [facility] [place] 2020-07-08 2020-07-08 Letter Simon 1.2.840.0 [id number] Univers 00:00:00 00:00:00 (Out) Nilton Luciano 72750.1.1 i ty of 3.104.2.7 [place] .3.723430 Medica [place] .8 [place] 2020-05-21 2020-05-21 Outpatient R NICOLE [facility] [id number] Univers 10:15:00 10:15:00 DENA ity of [facility] 2020-05-21 2020-05-21 Orders Doctor 1.2.840.1 [id number] Univers 00:00:00 00:00:00 Only Unassigned, 83769.1.1 ity of [place] 3.104.2.7 [place] .3.162543 Medica l .8 [place] 2020-04-24 2020-04-24 Outpatient R ANTONIO RAMIREZN [facility] [id number] Univers 16:00:00 16:00:00 ity of [facility] 2020-04-22 2020-04-22 Telephone Fish, Ash 1.2.840.5 [id number] Univers 00:00:00 00:00:00 33957.1.1 ity of 3.104.2.7 [place] .3.559754 Medica l .8 [place] 2020-04-21 2020-04-21 Case Fish, Ash 1.2.840.7 [id number] Univers 00:00:00 00:00:00 Management 71251.1.1 i ty of 3.104.2.7 [place] .3.210696 Medica l .8 [place] 2020-04-20 2020-04-20 Office Fish, Ash 1.2.840.3 [id number] Univers 15:09:50 16:30:58 Visit 47193.1.1 ity of 3.104.2.7 [place] .3.831385 Medica l .8 [place] 2020-04-20 2020-04-20 Outpatient R ANTONIO RAMIREZN [facility] [id number] Univers 15:30:00 15:30:00 ity of [facility] 2020-04-20 2020-04-20 Travel 1.2.840.1 1.2.339.250 [id number] [id number] Univers 00:00:00 00:00:00 84708.1.1 350.1.13.10 ity of 3.104.2.7 4.[place]7.3.698 [place] .3.906196 084.8 Medica l .8 [place] 2020-04-16 2020-04-16 Emergency Kitty Kessler 1.2.840.6 [id number] Univers 11:02:00 13:56:00 Bree 65247.1.1 ity of 3.104.2.7 [place] .3.263032 Medica l .8 [place] 2020-04-16 2020-04-16 Travel 1.2.840.1 1.2.377.193 6523 [id number] Univers 00:00:00 00:00:00 47072.1.1 350.1.13.10 ity of 3.104.2.7 4.2.7.3.698 [place] .3.096705 084.8 Medica l .8 [place] 2020-04-07 2020-04-07 Outpatient R CHELSY ROMO [facility] [id number] Univers 13:30:00 13:30:00 ity of [facility] 2020-04-07 2020-04-07 Travel 1.2.840.1 1.2.434.953 [id number] Univers 00:00:00 00:00:00 40488.1.1 350.1.13.10 ity of 3.104.2.7 4.2.7.3.698 [place] .3.940829 084.8 Medica l .8 [place] 2020-01-30 2020-01-30 Outpatient R MAHENDRA, [facility] [id number] Univers 15:45:00 15:45:00 TRUNG ity of [facility] 2020-01-30 2020-01-30 Travel 1.2.840.1 1.2.547.321 [id number] [id number] Univers 00:00:00 00:00:00 57047.1.1 350.1.13.10 ity of 3.104.2.7 4.2.7.3.698 [place] .3.604863 084.8 Medica l .8 [place] 2020-01-01 2020-01-01 Orders Doctor 1.2.840.6 [id number] Univers 00:00:00 00:00:00 Only Unassigned, 50082.1.1 ity of [place] 3.104.2.7 [place] .3.910882 Medica l .8 [place] 2019-10-22 2019-10-22 Outpatient R CHELSY ROMO [facility] [id number] Univers 15:45:00 15:45:00 ity of [facility] 2019-09-12 2019-09-12 Urgent Unknown, Attending 1.2.840.1 [id number] Univers 17:51:35 19:25:20 Care Ruchi Matt 36912.1.1 ity of 3.104.2.7 [place] .3.473059 Medica l .8 [place] 2019-09-12 2019-09-12 Outpatient R UNKNOWN, [facility] [id number] Univers 18:00:00 18:00:00 ATTENDING ity of [facility] 2019-07-04 2019-07-04 Orders Doctor 1.2.840.7 [id number] Univers 00:00:00 00:00:00 Only Unassigned, 56760.1.1 ity of [place] 3.104.2.7 [place] .3.860852 Medica l .8 [place] 2019-04-02 2019-04-02 Orders Doctor 1.2.840.2 [id number] Univers 00:00:00 00:00:00 Only Unassigned, 45389.1.1 ity of [place] 3.104.2.7 [place] .3.656419 Medica l .8 [place] 2018-10-31 2018-10-31 Nurse Nilton Montes 1.2.840.1 [id number] Univers 14:59:26 16:42:50 Visit NurseHan 47913.1.1 ity of 3.104.2.7 [place] .3.128235 Medica l .8 [place] Results Test Description Test Time Test Comments Results Result Comments Source AG STREP GROUP A (THROAT) POC 2022-07-15 20:12:00 Test Item Value Reference Range Interpretation Comme nts AG STREP GROUP A (THROAT) POC (test code = STREPAPOC) negative NEGATIVE POCT [id number] 01:46:00 Test Item Value Reference Range Interpretation Comments POCT PREG (test code = 1605) Negative On board controls acceptable with Present C Line (test code = 3574) POCT PREG LOT # (test code = HCG 20110903) POCT PREG TEST DATE (test 07/02/2023 code = 3576) Lab Interpretation (test code = Normal 34338-3) [facility] [id number] 01:46:00 Test Item Value Reference Range Interpretation Comments POCT PREG (test code = 1605) Negative On board controls acceptable with Present C Line (test code = 3574) POCT PREG LOT # (test code = HCG 20110903) POCT PREG TEST DATE (test 07/02/2023 code = 3576) Lab Interpretation (test code = Normal 57216-1) [facility] [id number] 01:46:00 Test Item Value Reference Range Interpretation Comments POCT PREG (test code = 1605) Negative On board controls acceptable with Present C Line (test code = 3574) POCT PREG LOT # (test code = HCG 20110903) POCT PREG TEST DATE (test 07/02/2023 code = 3576) Lab Interpretation (test code = Normal 77186-3) [facility] [id number] 01:46:00 Test Item Value Reference Range Interpretation Comments POCT PREG (test code = 1605) Negative On board controls acceptable with Present C Line (test code = 3574) POCT PREG LOT # (test code = HCG 20110903) POCT PREG TEST DATE (test 07/02/2023 code = 3576) Lab Interpretation (test code = Normal 37412-0) [facility] [id number] 01:46:00 Test Item Value Reference Range Interpretation Comments POCT PREG (test code = 1605) Negative On board controls acceptable with Present C Line (test code = 3574) POCT PREG LOT # (test code = HCG 20110903) POCT PREG TEST DATE (test 07/02/2023 code = 3576) Lab Interpretation (test code = Normal 51264-7) [facility] [id number] 01:46:00 Test Item Value Reference Range Interpretation Comments POCT PREG (test code = 1605) Negative On board controls acceptable with Present C Line (test code = 3574) POCT PREG LOT # (test code = HCG 20110903) POCT PREG TEST DATE (test 07/02/2023 code = 3576) Lab Interpretation (test code = Normal 53945-4) [facility] [id number] 01:46:00 Test Item Value Reference Range Interpretation Comments POCT PREG (test code = 1605) Negative On board controls acceptable with Present C Line (test code = 3574) POCT PREG LOT # (test code = HCG 20110903) POCT PREG TEST DATE (test 07/02/2023 code = 3576) Lab Interpretation (test code = Normal 53798-6) [facility] [id number] 01:46:00 Test Item Value Reference Range Interpretation Comments POCT PREG (test code = 1605) Negative On board controls acceptable with Present C Line (test code = 3574) POCT PREG LOT # (test code = HCG 20110903) POCT PREG TEST DATE (test 07/02/2023 code = 3576) Lab Interpretation (test code = Normal 97535-0) [facility] [id number] 01:46:00 Test Item Value Reference Range Interpretation Comments POCT PREG (test code = 1605) Negative On board controls acceptable with Present C Line (test code = 3574) POCT PREG LOT # (test code = HCG 20110903) POCT PREG TEST DATE (test 07/02/2023 code = 3576) Lab Interpretation (test code = Normal 78889-2) [facility] [id number] 01:46:00 Test Item Value Reference Range Interpretation Comments POCT PREG (test code = 1605) Negative On board controls acceptable with Present C Line (test code = 3574) POCT PREG LOT # (test code = HCG 20110903) POCT PREG TEST DATE (test 07/02/2023 code = 3576) Lab Interpretation (test code = Normal 05773-0) [facility] [id number] 01:46:00 Test Item Value Reference Range Interpretation Comments POCT PREG (test code = 1605) Negative On board controls acceptable with Present C Line (test code = 3574) POCT PREG LOT # (test code = HCG 20110903) POCT PREG TEST DATE (test 07/02/2023 code = 3576) Lab Interpretation (test code = Normal 41178-8) [facility] [id number] 01:46:00 Test Item Value Reference Range Interpretation Comments POCT PREG (test code = 1605) Negative On board controls acceptable with Present C Line (test code = 3574) POCT PREG LOT # (test code = HCG 20110903) POCT PREG TEST DATE (test 07/02/2023 code = 3576) Lab Interpretation (test code = Normal 06530-9) [facility] [id number] 01:46:00 Test Item Value Reference Range Interpretation Comments POCT PREG (test code = 1605) Negative On board controls acceptable with Present C Line (test code = 3574) POCT PREG LOT # (test code = HCG 20110903) POCT PREG TEST DATE (test 07/02/2023 code = 3576) Lab Interpretation (test code = Normal 32460-8) [facility] [id number] 01:46:00 Test Item Value Reference Range Interpretation Comments POCT PREG (test code = 1605) Negative On board controls acceptable with Present C Line (test code = 3574) POCT PREG LOT # (test code = HCG 20110903) POCT PREG TEST DATE (test 07/02/2023 code = 3576) Lab Interpretation (test code = Normal 90849-3) [facility] [id number] 01:46:00 Test Item Value Reference Range Interpretation Comments POCT PREG (test code = 1605) Negative On board controls acceptable with Present C Line (test code = 3574) POCT PREG LOT # (test code = HCG 20110903) POCT PREG TEST DATE (test 07/02/2023 code = 3576) Lab Interpretation (test code = Normal 58274-5) [facility] [id number] 01:46:00 Test Item Value Reference Range Interpretation Comments POCT PREG (test code = 1605) Negative On board controls acceptable with Present C Line (test code = 3574) POCT PREG LOT # (test code = HCG 20110903) POCT PREG TEST DATE (test 07/02/2023 code = 3576) Lab Interpretation (test code = Normal 05019-6) [facility] [id number] 01:46:00 Test Item Value Reference Range Interpretation Comments POCT PREG (test code = 1605) Negative On board controls acceptable with Present C Line (test code = 3574) POCT PREG LOT # (test code = HCG 20110903) POCT PREG TEST DATE (test 07/02/2023 code = 3576) Lab Interpretation (test code = Normal 66268-6) [facility] [id number] 01:46:00 Test Item Value Reference Range Interpretation Comments POCT PREG (test code = 1605) Negative On board controls acceptable with Present C Line (test code = 3574) POCT PREG LOT # (test code = HCG 20110903) POCT PREG TEST DATE (test 07/02/2023 code = 3576) Lab Interpretation (test code = Normal 10671-2) [facility] [id number] 01:46:00 Test Item Value Reference Range Interpretation Comments POCT PREG (test code = 1605) Negative On board controls acceptable with Present C Line (test code = 3574) POCT PREG LOT # (test code = HCG 20110903) POCT PREG TEST DATE (test 07/02/2023 code = 3576) Lab Interpretation (test code = Normal 66911-5) [facility] [id number] 01:46:00 Test Item Value Reference Range Interpretation Comments POCT PREG (test code = 1605) Negative On board controls acceptable with Present C Line (test code = 3574) POCT PREG LOT # (test code = HCG 20110903) POCT PREG TEST DATE (test 07/02/2023 code = 3576) Lab Interpretation (test code = Normal 35927-3) [facility] [id number] 01:46:00 Test Item Value Reference Range Interpretation Comments POCT PREG (test code = 1605) Negative On board controls acceptable with Present C Line (test code = 3574) POCT PREG LOT # (test code = HCG 1944005 3575) POCT PREG TEST DATE (test 07/02/2023 code = 3576) Lab Interpretation (test code = Normal 45754-0) [facility] [id number] 01:46:00 Test Item Value Reference Range Interpretation Comments POCT PREG (test code = 1605) Negative On board controls acceptable with Present C Line (test code = 3574) POCT PREG LOT # (test code = HCG 6026132 3575) POCT PREG TEST DATE (test 07/02/2023 code = 3576) Lab Interpretation (test code = Normal 50495-8) [facility] [id number] 01:46:00 Test Item Value Reference Range Interpretation Comments POCT PREG (test code = 1605) Negative On board controls acceptable with Present C Line (test code = 3574) POCT PREG LOT # (test code = HCG 20110903 3575) POCT PREG TEST DATE (test 07/02/2023 code = 3576) Lab Interpretation (test code = Normal 67209-3) [facility] METABOLIC PANEL (NA, K, CL, CO2, GLUCOSE, BUN, CREATININE, CA)2022-04-05 11:08:28 Test Item Value Reference Range Interpretation Comments NA (test code = 137 mmol/L 135-145 9828975146) K (test code = 3.8 mmol/L 3.5-5 5079580990) CL (test code = 104 mmol/L 98-108 5497167955) CO2 TOTAL (test code 27 mmol/L 23-31 = 6136256377) AGAP (test code = 2-16 0397589665) BUN (test code = 13 mg/dL 7-23 1713056960) GLUCOSE (test code = 106 mg/dL 70-110 0139630349) CREATININE (test code 0.58 mg/dL 0.5-1.04 = 7299535624) CALCIUM (test code = 8.6 mg/dL 8.6-10.6 2027246817) eGFR (test code = mL/min/1.73m2 4552362135) MEDHAT (test code = MEDHAT) Association of [...] or urine or abnormalities in imaging tests). [facility] METABOLIC PANEL (NA, K, CL, CO2, GLUCOSE, BUN, CREATININE, CA)2022-04-05 11:08:28 Test Item Value Reference Range Interpretation Comments NA (test code = 137 mmol/L 135-145 8207190233) K (test code = 3.8 mmol/L 3.5-5 4154903761) CL (test code = 104 mmol/L 98-108 6638247269) CO2 TOTAL (test code 27 mmol/L 23-31 = 9595431142) AGAP (test code = 2-16 6626556782) BUN (test code = 13 mg/dL 7-23 7578871879) GLUCOSE (test code = 106 mg/dL 70-110 6173413778) CREATININE (test code 0.58 mg/dL 0.5-1.04 = 0824262944) CALCIUM (test code = 8.6 mg/dL 8.6-10.6 2699854305) eGFR (test code = mL/min/1.73m2 0765450094) MEDHAT (test code = MEDHAT) Association of [...] or urine or abnormalities in imaging tests). [facility] METABOLIC PANEL (NA, K, CL, CO2, GLUCOSE, BUN, CREATININE, CA)2022-04-05 11:08:28 Test Item Value Reference Range Interpretation Comments NA (test code = 137 mmol/L 135-145 [id number]) K (test code = 3.8 mmol/L 3.5-5.0 9988128869) CL (test code = 104 mmol/L 98-108 6139060139) CO2 TOTAL (test code 27 mmol/L 23-31 = 1398651556) AGAP (test code = 2-16 5451787199) BUN (test code = 13 mg/dL 7-23 9237398376) GLUCOSE (test code = 106 mg/dL 70-110 2725308271) CREATININE (test code 0.58 mg/dL 0.50-1.04 = 2415552416) CALCIUM (test code = 8.6 mg/dL 8.6-10.6 2673870481) eGFR (test code = mL/min/1.73m2 9904555321) MEDHAT (test code = MEDHAT) Association of [...] or urine or abnormalities in imaging tests). [facility] METABOLIC PANEL (NA, K, CL, CO2, GLUCOSE, BUN, CREATININE, CA)2022-04-05 11:08:28 Test Item Value Reference Range Interpretation Comments NA (test code = 137 mmol/L 135-145 [id number]) K (test code = 3.8 mmol/L 3.5-5.0 7964333406) CL (test code = 104 mmol/L 98-108 6078814639) CO2 TOTAL (test code 27 mmol/L 23-31 = 8302871446) AGAP (test code = 2-16 4947382177) BUN (test code = 13 mg/dL 7-23 0987332936) GLUCOSE (test code = 106 mg/dL 70-110 2170351714) CREATININE (test code 0.58 mg/dL 0.50-1.04 = 2453471607) CALCIUM (test code = 8.6 mg/dL 8.6-10.6 8267764280) eGFR (test code = mL/min/1.73m2 9046875600) MEDHAT (test code = MEDHAT) Association of [...] or urine or abnormalities in imaging tests). [facility] METABOLIC PANEL (NA, K, CL, CO2, GLUCOSE, BUN, CREATININE, CA)2022-04-05 11:08:28 Test Item Value Reference Range Interpretation Comments NA (test code = 137 mmol/L 135-145 [id number]) K (test code = 3.8 mmol/L 3.5-5.0 1049059553) CL (test code = 104 mmol/L 98-108 5564038642) CO2 TOTAL (test code 27 mmol/L 23-31 = 3685630950) AGAP (test code = 2-16 4352297379) BUN (test code = 13 mg/dL 7-23 4044981108) GLUCOSE (test code = 106 mg/dL 70-110 4502813601) CREATININE (test code 0.58 mg/dL 0.50-1.04 = 8815389594) CALCIUM (test code = 8.6 mg/dL 8.6-10.6 5423570495) eGFR (test code = mL/min/1.73m2 4667570243) MEDHAT (test code = MEDHAT) Association of [...] or urine or abnormalities in imaging tests). [facility] METABOLIC PANEL (NA, K, CL, CO2, GLUCOSE, BUN, CREATININE, CA)2022-04-05 11:08:28 Test Item Value Reference Range Interpretation Comments NA (test code = 137 mmol/L 135-145 2695947500) K (test code = 3.8 mmol/L 3.5-5.0 2686643891) CL (test code = 104 mmol/L 98-108 8443518236) CO2 TOTAL (test code 27 mmol/L 23-31 = 4364547301) AGAP (test code = 2-16 6930331015) BUN (test code = 13 mg/dL 7-23 6586244781) GLUCOSE (test code = 106 mg/dL 70-110 2407795423) CREATININE (test code 0.58 mg/dL 0.50-1.04 = 6811510661) CALCIUM (test code = 8.6 mg/dL 8.6-10.6 0994664052) eGFR (test code = mL/min/1.73m2 9701667373) MEDHAT (test code = MEDHAT) Association of [...] or urine or abnormalities in imaging tests). [facility] METABOLIC PANEL (NA, K, CL, CO2, GLUCOSE, BUN, CREATININE, CA)2022-04-05 11:08:28 Test Item Value Reference Range Interpretation Comments NA (test code = 137 mmol/L 135-145 1948558708) K (test code = 3.8 mmol/L 3.5-5.0 7497588151) CL (test code = 104 mmol/L 98-108 1892947750) CO2 TOTAL (test code 27 mmol/L 23-31 = 2664629132) AGAP (test code = 2-16 9551870108) BUN (test code = 13 mg/dL 7-23 7025378597) GLUCOSE (test code = 106 mg/dL 70-110 5024189383) CREATININE (test code 0.58 mg/dL 0.50-1.04 = 0368826008) CALCIUM (test code = 8.6 mg/dL 8.6-10.6 6318417705) eGFR (test code = mL/min/1.73m2 4240712174) MEDHAT (test code = MEDHAT) Association of [...] or urine or abnormalities in imaging tests). [facility] METABOLIC PANEL (NA, K, CL, CO2, GLUCOSE, BUN, CREATININE, CA)2022-04-05 11:08:28 Test Item Value Reference Range Interpretation Comments NA (test code = 137 mmol/L 135-145 8404595331) K (test code = 3.8 mmol/L 3.5-5.0 8018216829) CL (test code = 104 mmol/L 98-108 6628218064) CO2 TOTAL (test code 27 mmol/L 23-31 = 2960959312) AGAP (test code = 2-16 7385953583) BUN (test code = 13 mg/dL 7-23 5052882018) GLUCOSE (test code = 106 mg/dL 70-110 4781447460) CREATININE (test code 0.58 mg/dL 0.50-1.04 = 1978472116) CALCIUM (test code = 8.6 mg/dL 8.6-10.6 2166836366) eGFR (test code = mL/min/1.73m2 2445951914) MEDHAT (test code = MEDHAT) Association of [...] or urine or abnormalities in imaging tests). [facility] METABOLIC PANEL (NA, K, CL, CO2, GLUCOSE, BUN, CREATININE, CA)2022-04-05 11:08:28 Test Item Value Reference Range Interpretation Comments NA (test code = 137 mmol/L 135-145 0342503860) K (test code = 3.8 mmol/L 3.5-5.0 4785531225) CL (test code = 104 mmol/L 98-108 3692627663) CO2 TOTAL (test code 27 mmol/L 23-31 = 2133502190) AGAP (test code = 2-16 8326414029) BUN (test code = 13 mg/dL 7-23 7410336441) GLUCOSE (test code = 106 mg/dL 70-110 2641517070) CREATININE (test code 0.58 mg/dL 0.50-1.04 = 9475892845) CALCIUM (test code = 8.6 mg/dL 8.6-10.6 3683221436) eGFR (test code = mL/min/1.73m2 7815358664) MEDHAT (test code = MEDHAT) Association of [...] or urine or abnormalities in imaging tests). [facility] METABOLIC PANEL (NA, K, CL, CO2, GLUCOSE, BUN, CREATININE, CA)2022-04-05 11:08:28 Test Item Value Reference Range Interpretation Comments NA (test code = 137 mmol/L 135-145 2667240306) K (test code = 3.8 mmol/L 3.5-5.0 5886132149) CL (test code = 104 mmol/L 98-108 9366294376) CO2 TOTAL (test code 27 mmol/L 23-31 = 5447305014) AGAP (test code = 2-16 8056104888) BUN (test code = 13 mg/dL 7-23 0736094637) GLUCOSE (test code = 106 mg/dL 70-110 3073740837) CREATININE (test code 0.58 mg/dL 0.50-1.04 = 1363727746) CALCIUM (test code = 8.6 mg/dL 8.6-10.6 1082159131) eGFR (test code = mL/min/1.73m2 6139217820) MEDHAT (test code = MEDHAT) Association of [...] or urine or abnormalities in imaging tests). [facility] (NA, K, CL, CO2, GLUCOSE, BUN, CREATININE, CA)2022-04-05 11:08:28 Test Item Value Reference Range Interpretation Comments NA (test code = 137 mmol/L 135-145 2073070605) K (test code = 3.8 mmol/L 3.5-5.0 2699756656) CL (test code = 104 mmol/L 98-108 7092253038) CO2 TOTAL (test code 27 mmol/L 23-31 = 6727776013) AGAP (test code = 2-16 2936270800) BUN (test code = 13 mg/dL 7-23 6203230867) GLUCOSE (test code = 106 mg/dL 70-110 6752700886) CREATININE (test code 0.58 mg/dL 0.50-1.04 = 9633859509) CALCIUM (test code = 8.6 mg/dL 8.6-10.6 8011362032) eGFR (test code = mL/min/1.73m2 6929401920) MEDHAT (test code = MEDHAT) Association of [...] or urine or abnormalities in imaging tests). [facility] METABOLIC PANEL (NA, K, CL, CO2, GLUCOSE, BUN, CREATININE, CA)2022-04-05 11:08:28 Test Item Value Reference Range Interpretation Comments NA (test code = 137 mmol/L 135-145 2062503851) K (test code = 3.8 mmol/L 3.5-5 3491232191) CL (test code = 104 mmol/L 98-108 2655318761) CO2 TOTAL (test code 27 mmol/L 23-31 = 0592698095) AGAP (test code = 2-16 0086873677) BUN (test code = 13 mg/dL 7-23 2756748434) GLUCOSE (test code = 106 mg/dL 70-110 5416541804) CREATININE (test code 0.58 mg/dL 0.5-1.04 = 7737169035) CALCIUM (test code = 8.6 mg/dL 8.6-10.6 8656020806) eGFR (test code = mL/min/1.73m2 9323885033) MEDHAT (test code = MEDHAT) Association of [...] or urine or abnormalities in imaging tests). [facility] METABOLIC PANEL (NA, K, CL, CO2, GLUCOSE, BUN, CREATININE, CA)2022-04-05 11:08:28 Test Item Value Reference Range Interpretation Comments NA (test code = 137 mmol/L 135-145 2440457369) K (test code = 3.8 mmol/L 3.5-5 9145098271) CL (test code = 104 mmol/L 98-108 8514417075) CO2 TOTAL (test code 27 mmol/L 23-31 = 9502043655) AGAP (test code = 2-16 7098511694) BUN (test code = 13 mg/dL 7-23 5685179237) GLUCOSE (test code = 106 mg/dL 70-110 6117699646) CREATININE (test code 0.58 mg/dL 0.5-1.04 = 7409425319) CALCIUM (test code = 8.6 mg/dL 8.6-10.6 4258049699) eGFR (test code = mL/min/1.73m2 8857872726) MEDHAT (test code = MEDHAT) Association of [...] or urine or abnormalities in imaging tests). [facility] METABOLIC PANEL (NA, K, CL, CO2, GLUCOSE, BUN, CREATININE, CA)2022-04-05 11:08:28 Test Item Value Reference Range Interpretation Comments NA (test code = 137 mmol/L 135-145 8842618962) K (test code = 3.8 mmol/L 3.5-5 1254702417) CL (test code = 104 mmol/L 98-108 9133107494) CO2 TOTAL (test code 27 mmol/L 23-31 = 3409758755) AGAP (test code = 2-16 6238535132) BUN (test code = 13 mg/dL 7-23 1875352614) GLUCOSE (test code = 106 mg/dL 70-110 4718092967) CREATININE (test code 0.58 mg/dL 0.5-1.04 = 2157790648) CALCIUM (test code = 8.6 mg/dL 8.6-10.6 1397108504) eGFR (test code = mL/min/1.73m2 4657547643) MEDHAT (test code = MEDHAT) Association of [...] or urine or abnormalities in imaging tests). [facility] METABOLIC PANEL (NA, K, CL, CO2, GLUCOSE, BUN, CREATININE, CA)2022-04-05 11:08:28 Test Item Value Reference Range Interpretation Comments NA (test code = 137 mmol/L 135-145 1300933157) K (test code = 3.8 mmol/L 3.5-5 4781400993) CL (test code = 104 mmol/L 98-108 3624203447) CO2 TOTAL (test code 27 mmol/L 23-31 = 3771913832) AGAP (test code = 2-16 0497633520) BUN (test code = 13 mg/dL 7-23 6395871700) GLUCOSE (test code = 106 mg/dL 70-110 5451325870) CREATININE (test code 0.58 mg/dL 0.5-1.04 = 3507948643) CALCIUM (test code = 8.6 mg/dL 8.6-10.6 8378598453) eGFR (test code = mL/min/1.73m2 8657821369) MEDHAT (test code = MEDHAT) Association of [...] or urine or abnormalities in imaging tests). [facility] METABOLIC PANEL (NA, K, CL, CO2, GLUCOSE, BUN, CREATININE, CA)2022-04-05 11:08:28 Test Item Value Reference Range Interpretation Comments NA (test code = 137 mmol/L 135-145 3550122917) K (test code = 3.8 mmol/L 3.5-5 1562634498) CL (test code = 104 mmol/L 98-108 0318767302) CO2 TOTAL (test code 27 mmol/L 23-31 = 4436313247) AGAP (test code = 2-16 1324723859) BUN (test code = 13 mg/dL 7-23 3024388720) GLUCOSE (test code = 106 mg/dL 70-110 9332839862) CREATININE (test code 0.58 mg/dL 0.5-1.04 = 8631217490) CALCIUM (test code = 8.6 mg/dL 8.6-10.6 1748090404) eGFR (test code = mL/min/1.73m2 0099777004) MEDHAT (test code = MEDHAT) Association of [...] or urine or abnormalities in imaging tests). [facility] METABOLIC PANEL (NA, K, CL, CO2, GLUCOSE, BUN, CREATININE, CA)2022-04-05 11:08:28 Test Item Value Reference Range Interpretation Comments NA (test code = 137 mmol/L 135-145 1260723791) K (test code = 3.8 mmol/L 3.5-5 5845603747) CL (test code = 104 mmol/L 98-108 4022581631) CO2 TOTAL (test code 27 mmol/L 23-31 = 1701825438) AGAP (test code = 2-16 1880146179) BUN (test code = 13 mg/dL 7-23 3407500685) GLUCOSE (test code = 106 mg/dL 70-110 1591696528) CREATININE (test code 0.58 mg/dL 0.5-1.04 = 3281273523) CALCIUM (test code = 8.6 mg/dL 8.6-10.6 9367716925) eGFR (test code = mL/min/1.73m2 0559775661) MEDHAT (test code = MEDHAT) Association of [...] or urine or abnormalities in imaging tests). [facility] METABOLIC PANEL (NA, K, CL, CO2, GLUCOSE, BUN, CREATININE, CA)2022-04-05 11:08:28 Test Item Value Reference Range Interpretation Comments NA (test code = 137 mmol/L 135-145 1991199654) K (test code = 3.8 mmol/L 3.5-5 3553964664) CL (test code = 104 mmol/L 98-108 4066117300) CO2 TOTAL (test code 27 mmol/L 23-31 = 8761160468) AGAP (test code = 2-16 7858326622) BUN (test code = 13 mg/dL 7-23 9636572237) GLUCOSE (test code = 106 mg/dL 70-110 9351947890) CREATININE (test code 0.58 mg/dL 0.5-1.04 = 8240109492) CALCIUM (test code = 8.6 mg/dL 8.6-10.6 3868985262) eGFR (test code = mL/min/1.73m2 4240665798) MEDHAT (test code = MEDHAT) Association of [...] or urine or abnormalities in imaging tests). [facility] METABOLIC PANEL (NA, K, CL, CO2, GLUCOSE, BUN, CREATININE, CA)2022-04-05 11:08:28 Test Item Value Reference Range Interpretation Comments NA (test code = 137 mmol/L 135-145 7437466313) K (test code = 3.8 mmol/L 3.5-5 1120554197) CL (test code = 104 mmol/L 98-108 8469643136) CO2 TOTAL (test code 27 mmol/L 23-31 = 8898399294) AGAP (test code = 2-16 8804148952) BUN (test code = 13 mg/dL 7-23 4373799992) GLUCOSE (test code = 106 mg/dL 70-110 2227445907) CREATININE (test code 0.58 mg/dL 0.5-1.04 = 0233320335) CALCIUM (test code = 8.6 mg/dL 8.6-10.6 9119268840) eGFR (test code = mL/min/1.73m2 7476821059) MEDHAT (test code = MEDHAT) Association of [...] or urine or abnormalities in imaging tests). [facility] METABOLIC PANEL (NA, K, CL, CO2, GLUCOSE, BUN, CREATININE, CA)2022-04-05 11:08:28 Test Item Value Reference Range Interpretation Comments NA (test code = 137 mmol/L 135-145 1174007101) K (test code = 3.8 mmol/L 3.5-5 9335042838) CL (test code = 104 mmol/L 98-108 4449911904) CO2 TOTAL (test code 27 mmol/L 23-31 = 3904087270) AGAP (test code = 2-16 3897734904) BUN (test code = 13 mg/dL 7-23 1796598777) GLUCOSE (test code = 106 mg/dL 70-110 4734443945) CREATININE (test code 0.58 mg/dL 0.5-1.04 = 7303291597) CALCIUM (test code = 8.6 mg/dL 8.6-10.6 1344965503) eGFR (test code = mL/min/1.73m2 5128431562) MEDHAT (test code = MEDHAT) Association of [...] or urine or abnormalities in imaging tests). [facility] METABOLIC PANEL (NA, K, CL, CO2, GLUCOSE, BUN, CREATININE, CA)2022-04-05 11:08:28 Test Item Value Reference Range Interpretation Comments NA (test code = 137 mmol/L 135-145 5363196180) K (test code = 3.8 mmol/L 3.5-5 3123344308) CL (test code = 104 mmol/L 98-108 7296054578) CO2 TOTAL (test code 27 mmol/L 23-31 = 9532537184) AGAP (test code = 2-16 3033699587) BUN (test code = 13 mg/dL 7-23 8153185562) GLUCOSE (test code = 106 mg/dL 70-110 5811338511) CREATININE (test code 0.58 mg/dL 0.5-1.04 = 8804890137) CALCIUM (test code = 8.6 mg/dL 8.6-10.6 1850299925) eGFR (test code = mL/min/1.73m2 5921908047) MEDHAT (test code = MEDHAT) Association of [...] or urine or abnormalities in imaging tests). [facility] METABOLIC PANEL (NA, K, CL, CO2, GLUCOSE, BUN, CREATININE, CA)2022-04-05 11:08:28 Test Item Value Reference Range Interpretation Comments NA (test code = 137 mmol/L 135-145 1175320083) K (test code = 3.8 mmol/L 3.5-5 7518230357) CL (test code = 104 mmol/L 98-108 3695535819) CO2 TOTAL (test code 27 mmol/L 23-31 = 9926201985) AGAP (test code = 2-16 6479953222) BUN (test code = 13 mg/dL 7-23 2006164059) GLUCOSE (test code = 106 mg/dL 70-110 4996396695) CREATININE (test code 0.58 mg/dL 0.5-1.04 = 1640014521) CALCIUM (test code = 8.6 mg/dL 8.6-10.6 3274219124) eGFR (test code = mL/min/1.73m2 5378329474) MEDHAT (test code = MEDHAT) Association of [...] or urine or abnormalities in imaging tests). [facility] (NA, K, CL, CO2, GLUCOSE, BUN, CREATININE, CA)2022-04-05 11:08:28 Test Item Value Reference Range Interpretation Comments NA (test code = 137 mmol/L 135-145 3265480258) K (test code = 3.8 mmol/L 3.5-5 9376890639) CL (test code = 104 mmol/L 98-108 9351703833) CO2 TOTAL (test code 27 mmol/L 23-31 = 9130814349) AGAP (test code = 2-16 2223785624) BUN (test code = 13 mg/dL 7-23 6165785892) GLUCOSE (test code = 106 mg/dL 70-110 8485217957) CREATININE (test code 0.58 mg/dL 0.5-1.04 = 9172765407) CALCIUM (test code = 8.6 mg/dL 8.6-10.6 3362971969) eGFR (test code = mL/min/1.73m2 2200582488) MEDHAT (test code = MEDHAT) Association of [...] or urine or abnormalities in imaging tests). [facility] METABOLIC PANEL (NA, K, CL, CO2, GLUCOSE, BUN, CREATININE, CA)2022-04-05 11:08:28 Test Item Value Reference Range Interpretation Comments NA (test code = 137 mmol/L 135-145 0855899690) K (test code = 3.8 mmol/L 3.5-5 9206581500) CL (test code = 104 mmol/L 98-108 4771092220) CO2 TOTAL (test code 27 mmol/L 23-31 = 7255059481) AGAP (test code = 2-16 8784862837) BUN (test code = 13 mg/dL 7-23 5416174295) GLUCOSE (test code = 106 mg/dL 70-110 5611725974) CREATININE (test code 0.58 mg/dL 0.5-1.04 = 2293957964) CALCIUM (test code = 8.6 mg/dL 8.6-10.6 3060737188) eGFR (test code = mL/min/1.73m2 3484531050) MEDHAT (test code = MEDHAT) Association of [...] or urine or abnormalities in imaging tests). [facility] with [id number] 10:50:28 Test Item Value Reference Range Interpretation Comments WBC (test code = See_Comment [Automated 8860-2) message] The sy stem which generated this result transmitted reference range : 4.30 - 11.10 10*3/?L. The reference range was not used to interpret this result as normal/abnormal . RBC (test code = See_Comment [Automated 553-2) message] The sy stem which generated this [...] RDW-SD (test code = 43.6 fL 39-49.9 99423-8) RDW-CV (test code = 13.6 % 12-15.5 788-0) PLT (test code = See_Comment [Automated 777-3) message] The sy stem which generated this result transmitted reference range : 166 - 358 10*3/ ?L. The reference r mann was not used to interpret this result as normal/abnormal . MPV (test code = 9.9 fL 9.5-12.9 50002-6) NRBC/100 WBC (test See_Comment [Automat ed code = 7182174060) message] The system which generated this result transmitted reference range : 0.0 - 10.0 /100 WBCs. The refer ence range was not u sed to interpret th is result as normal/abnormal . NRBC x10^3 (test code See_Comment [Auto mated = 2225246324) message] The s ystem which generated this result transmitted reference range : 10*3/?L. The reference range was not used to interpret this result as normal/abnormal . GRAN MAT (NEUT) % 65.5 % (test code = 770-8) IMM GRAN % (test code 0.30 % = 4350654877) LYMPH % (test code = 25.3 % 736-9) MONO % (test code = 8.4 % 5905-5) EOS % (test code = 0.0 % 713-8) BASO % (test code = 0.5 % 706-2) GRAN MAT x10^3(ANC) 6.56 10*3/uL 1.88-7.09 (test code = 8058340507) IMM GRAN x10^3 (test 0.03 10*3/uL 0-0.06 code = 9555145788) LYMPH x10^3 (test code 2.53 10*3/uL 1.32-3.29 = 731-0) MONO x10^3 (test code 0.84 10*3/uL 0.33-0.92 = 742-7) EOS x10^3 (test code = 0.03-0.39 L 711-2) BASO x10^3 (test code 0.05 10*3/uL 0.01-0.07 = 704-7) Lab Interpretation Abnormal (test code = 85168-4) [facility] with [id number] 10:50:28 Test Item Value Reference Range Interpretation Comments WBC (test code = See_Comment [Automated 4090-2) message] The sy stem which generated this [...] RDW-SD (test code = 43.6 fL 39-49.9 20703-9) RDW-CV (test code = 13.6 % 12-15.5 788-0) PLT (test code = See_Comment [Automated 777-3) message] The sy stem which generated this result transmitted reference range : 166 - 358 10*3/ ?L. The reference r mann was not used to interpret this result as normal/abnormal . MPV (test code = 9.9 fL 9.5-12.9 43454-6) NRBC/100 WBC (test See_Comment [Automat ed code = 8521309221) message] The system which generated this result transmitted reference range : 0.0 - 10.0 /100 WBCs. The refer ence range was not u sed to interpret th is result as normal/abnormal . NRBC x10^3 (test code See_Comment [Auto mated = 9585977617) message] The s ystem which generated this result transmitted reference range : 10*3/?L. The reference range was not used to interpret this result as normal/abnormal . GRAN MAT (NEUT) % 65.5 % (test code = 770-8) IMM GRAN % (test code 0.30 % = 8968921145) LYMPH % (test code = 25.3 % 736-9) MONO % (test code = 8.4 % 5905-5) EOS % (test code = 0.0 % 713-8) BASO % (test code = 0.5 % 706-2) GRAN MAT x10^3(ANC) 6.56 10*3/uL 1.88-7.09 (test code = 7267434890) IMM GRAN x10^3 (test 0.03 10*3/uL 0-0.06 code = 9156854488) LYMPH x10^3 (test code 2.53 10*3/uL 1.32-3.29 = 731-0) MONO x10^3 (test code 0.84 10*3/uL 0.33-0.92 = 742-7) EOS x10^3 (test code = 0.03-0.39 L 711-2) BASO x10^3 (test code 0.05 10*3/uL 0.01-0.07 = 704-7) Lab Interpretation Abnormal (test code = 08297-8) [id number] Test Item Value Reference Interpretation Comments Range TROPONIN I (test 0.001 ng/mL See_Comment [Automated code = 0145218917) message] The system which generated this result [...] biotin. Lab Interpretation Normal (test code = 05957-0) [facility] [id number] 01:03:38 Test Item Value Reference Interpretation Comments Range TROPONIN I (test 0.001 ng/mL See_Comment [Automated code = 3246963148) message] The system which generated this result [...] biotin. Lab Interpretation Normal (test code = 78484-2) [facility] [id number] 01:03:38 Test Item Value Reference Interpretation Comments Range TROPONIN I (test 0.001 ng/mL See_Comment [Automated code = 0691649631) message] The system which generated this result [...] biotin. Lab Interpretation Normal (test code = 28686-9) [facility] [id number] 01:03:38 Test Item Value Reference Interpretation Comments Range TROPONIN I (test 0.001 ng/mL See_Comment [Automated code = 2034336083) message] The system which generated this result [...] biotin. Lab Interpretation Normal (test code = 58340-3) [facility] [id number] 01:03:38 Test Item Value Reference Interpretation Comments Range TROPONIN I (test 0.001 ng/mL See_Comment [Automated code = 7660410045) message] The system which generated this result [...] biotin. Lab Interpretation Normal (test code = 57580-8) [facility] [id number] 01:03:38 Test Item Value Reference Interpretation Comments Range TROPONIN I (test 0.001 ng/mL See_Comment [Automated code = 5867100426) message] The system which generated this result [...] biotin. Lab Interpretation Normal (test code = 76567-2) [facility] [id number] 01:03:38 Test Item Value Reference Interpretation Comments Range TROPONIN I (test 0.001 ng/mL See_Comment [Automated code = 9440455921) message] The system which generated this result [...] biotin. Lab Interpretation Normal (test code = 12779-2) [facility] [id number] 01:03:38 Test Item Value Reference Interpretation Comments Range TROPONIN I (test 0.001 ng/mL See_Comment [Automated code = 3882505593) message] The system which generated this result [...] biotin. Lab Interpretation Normal (test code = 85826-1) [facility] [id number] 01:03:38 Test Item Value Reference Interpretation Comments Range TROPONIN I (test 0.001 ng/mL See_Comment [Automated code = 4575930819) message] The system which generated this result [...] biotin. Lab Interpretation Normal (test code = 17999-0) [facility] [id number] 01:03:38 Test Item Value Reference Interpretation Comments Range TROPONIN I (test 0.001 ng/mL See_Comment [Automated code = 2555286825) message] The system which generated this result [...] biotin. Lab Interpretation Normal (test code = 92296-8) [facility] [id number] 01:03:38 Test Item Value Reference Interpretation Comments Range TROPONIN I (test 0.001 ng/mL See_Comment [Automated code = 7917927864) message] The system which generated this result [...] biotin. Lab Interpretation Normal (test code = 71626-6) [facility] [id number] 01:03:38 Test Item Value Reference Interpretation Comments Range TROPONIN I (test 0.001 ng/mL See_Comment [Automated code = 5726185021) message] The system which generated this result [...] biotin. Lab Interpretation Normal (test code = 30271-9) [facility] [id number] 01:03:38 Test Item Value Reference Interpretation Comments Range TROPONIN I (test 0.001 ng/mL See_Comment [Automated code = 4092602500) message] The system which generated this result [...] biotin. Lab Interpretation Normal (test code = 04287-0) [facility] [id number] 01:03:38 Test Item Value Reference Interpretation Comments Range TROPONIN I (test 0.001 ng/mL See_Comment [Automated code = 0885446539) message] The system which generated this result [...] biotin. Lab Interpretation Normal (test code = 26449-9) [facility] [id number] 01:03:38 Test Item Value Reference Interpretation Comments Range TROPONIN I (test 0.001 ng/mL See_Comment [Automated code = 8320393561) message] The system which generated this result [...] biotin. Lab Interpretation Normal (test code = 88142-6) [facility] [id number] 01:03:38 Test Item Value Reference Interpretation Comments Range TROPONIN I (test 0.001 ng/mL See_Comment [Automated code = 3314018241) message] The system which generated this result [...] biotin. Lab Interpretation Normal (test code = 78443-1) [facility] [id number] 01:03:38 Test Item Value Reference Interpretation Comments Range TROPONIN I (test 0.001 ng/mL See_Comment [Automated code = 6626387381) message] The system which generated this result [...] biotin. Lab Interpretation Normal (test code = 87208-8) [facility] [id number] 01:03:38 Test Item Value Reference Interpretation Comments Range TROPONIN I (test 0.001 ng/mL See_Comment [Automated code = [id number]) message] The system which generated this result [...] biotin. Lab Interpretation Normal (test code = 18089-4) [facility] [id number] 01:03:38 Test Item Value Reference Interpretation Comments Range TROPONIN I (test 0.001 ng/mL See_Comment [Automated code = [id number]) message] The system which generated this result [...] biotin. Lab Interpretation Normal (test code = 59287-9) [facility] [id number] 01:03:38 Test Item Value Reference Interpretation Comments Range TROPONIN I (test 0.001 ng/mL See_Comment [Automated code = [id number]) message] The system which generated this result [...] biotin. Lab Interpretation Normal (test code = 76418-8) [facility] [id number] 01:03:38 Test Item Value Reference Interpretation Comments Range TROPONIN I (test 0.001 ng/mL See_Comment [Automated code = [id number]) message] The system which generated this result [...] biotin. Lab Interpretation Normal (test code = 61735-7) [facility] [id number] 01:03:38 Test Item Value Reference Interpretation Comments Range TROPONIN I (test 0.001 ng/mL See_Comment [Automated code = [id number]) message] The system which generated this result [...] biotin. Lab Interpretation Normal (test code = 81542-5) [facility] [id number] 01:03:38 Test Item Value Reference Interpretation Comments Range TROPONIN I (test 0.001 ng/mL See_Comment [Automated code = 1316797919) message] The system which generated this result [...] biotin. Lab Interpretation Normal (test code = 77162-6) [facility] [id number] 01:03:38 Test Item Value Reference Interpretation Comments Range TROPONIN I (test 0.001 ng/mL See_Comment [Automated code = 8382367150) message] The system which generated this result [...] biotin. Lab Interpretation Normal (test code = 21136-0) [facility] [id number] 21:06:03 Test Item Value Reference Range Interpretation Comments ABO & RH (test code A Positive Performe d at [facility] = 20) Laboratory Serv ices - [facility] [address] [place], [place] [address]Toll Free: [phone] A No. [id number] IAT (test code = Negative Performed a t [facility] 1185) Laboratory [facility] Blood [place] [address]Toll Free: [phone] A No. [id number] [facility] [id number] 21:06:03 Test Item Value Reference Range Interpretation Comments ABO & RH (test code A Positive Performe d at [facility] = 20) Laboratory [facility] Blood [place] [address]Toll Free: [phone] A No. [id number] IAT (test code = Negative Performed a t [facility] 1185) Laboratory [facility] Blood [place] [address]Toll Free: [phone] A No. [id number] [facility] [id number] 21:06:03 Test Item Value Reference Range Interpretation Comments ABO & RH (test code A Positive Performe d at [facility] = 20) Laboratory [facility] Blood [place] [address]Toll Free: [phone] A No. [id number] IAT (test code = Negative Performed a t [facility] 1185) Laboratory [facility] Blood [address] [place], [place] [address]Toll Free: [phone] A No. [id number] [facility] [id number] 21:06:03 Test Item Value Reference Range Interpretation Comments ABO & RH (test code A Positive Performe d at [facility] = 20) Laboratory [facility] Blood [address] [address]Vowe Free: [phone] A No. [id number] IAT (test code = Negative Performed a t [facility] 1185) Laboratory [facility] Blood [address] [place], [place] [address]Toll Free: [phone] A No. [id number] [facility] and Screen - ONCE [id number] 21:06:03 Test Item Value Reference Range Interpretation Comments ABO & RH (test code A Positive Performe d at [facility] = 20) Laboratory [facility] [address] [place], [place] [address]Toll Free: [phone] A No. [id number] IAT (test code = Negative Performed a t [facility] 1185) Laboratory [facility] [address] [place], [place] [address]Toll Free: [phone] A No. [id number] [facility] and Screen - ONCE [id number] 21:06:03 Test Item Value Reference Range Interpretation Comments ABO & RH (test code A Positive Performe d at [facility] = 20) Laboratory [facility] Blood [address] [place], [place] [address]Toll Free: [phone] A No. [id number] IAT (test code = Negative Performed a t [facility] 1185) Laboratory [facility] [address] [place], [place] [address]Toll Free: [phone] A No. [id number] [facility] and Screen - ONCE [id number] 21:06:03 Test Item Value Reference Range Interpretation Comments ABO & RH (test code A Positive Performe d at [facility] = 20) Laboratory [facility] Blood [address] [place] [address]Mbcl Free: [phone] A No. [id number] IAT (test code = Negative Performed a t [facility] 1185) Laboratory [facility] [address] [place], [place] [address]Toll Free: [phone] A No. [id number] [facility] and Screen - ONCE [id number] 21:06:03 Test Item Value Reference Range Interpretation Comments ABO & RH (test code A Positive Performe d at [facility] = 20) Laboratory [facility] Blood [place] [address]Toll Free: [phone] A No. [id number] IAT (test code = Negative Performed a t [facility] 1185) Laboratory [facility] Blood [place] [address]Toll Free: [phone] A No. [id number] [facility] and Screen - ONCE [id number] 21:06:03 Test Item Value Reference Range Interpretation Comments ABO & RH (test code A Positive Performe d at [facility] = 20) Laboratory [facility] Blood [place] [address]Toll Free: [phone] A No. [id number] IAT (test code = Negative Performed a t [facility] 1185) Laboratory [facility] Blood [place] [address]Toll Free: [phone] A No. [id number] [facility] and Screen - ONCE [id number] 21:06:03 Test Item Value Reference Range Interpretation Comments ABO & RH (test code A Positive Performe d at [facility] = 20) Laboratory [facility] [address] [place], [place] [address]Toll Free: [phone] A No. [id number] IAT (test code = Negative Performed a t [facility] 1185) Laboratory [facility] [address] [place], [place] [address]Toll Free: [phone] A No. [id number] [facility] and Screen - ONCE [id number] 21:06:03 Test Item Value Reference Range Interpretation Comments ABO & RH (test code A Positive Performe d at [facility] = 20) Laboratory [facility] [address] [place], [place] [address]Toll Free: [phone] A No. [id number] IAT (test code = Negative Performed a t [facility] 1185) Laboratory [facility] [address] [place], [place] [address]Toll Free: [phone] A No. [id number] [facility] [id number] 21:06:03 Test Item Value Reference Range Interpretation Comments ABO & RH (test code A Positive Performe d at [facility] = 20) Laboratory [facility] [address] [place], [place] [address]Toll Free: [phone] A No. [id number] IAT (test code = Negative Performed a t [facility] 1185) Laboratory [facility] Blood [place] [address]Toll Free: [phone] A No. [id number] [facility] [id number] 21:06:03 Test Item Value Reference Range Interpretation Comments ABO & RH (test code A Positive Performe d at [facility] = 20) Laboratory [facility] Blood [place] [address]Toll Free: [phone] A No. [id number] IAT (test code = Negative Performed a t [facility] 1185) Laboratory [facility] [address] [place], [place] [address]Toll Free: [phone] A No. [id number] [facility] [id number] 21:06:03 Test Item Value Reference Range Interpretation Comments ABO & RH (test code A Positive Performe d at [facility] = 20) Laboratory [facility] Blood [place] [address]Toll Free: [phone] A No. [id number] IAT (test code = Negative Performed a t [facility] 1185) Laboratory [facility] Blood [address] [place] [address]Toll Free: [phone] A No. [id number] [facility] [id number] 21:06:03 Test Item Value Reference Range Interpretation Comments ABO & RH (test code A Positive Performe d at [facility] = 20) Laboratory [facility] [address] [place], [place] [address]Toll Free: [phone] A No. [id number] IAT (test code = Negative Performed a t [facility] 1185) Laboratory [facility] Blood [place] [address]Toll Free: [phone] A No. [id number] [facility] and Screen - ONCE [id number] 21:06:03 Test Item Value Reference Range Interpretation Comments ABO & RH (test code A Positive Performe d at [facility] = 20) Laboratory [facility] Blood [place] [address]Toll Free: [phone] A No. [id number] IAT (test code = Negative Performed a t [facility] 1185) Laboratory [facility] Blood [place] [address]Toll Free: [phone] A No. [id number] [facility] and Screen - ONCE [id number] 21:06:03 Test Item Value Reference Range Interpretation Comments ABO & RH (test code A Positive Performe d at [facility] = 20) Laboratory [facility] [address] [place], [place] [address]Toll Free: [phone] A No. [id number] IAT (test code = Negative Performed a t [facility] 1185) Laboratory [facility] Blood [place] [address]Toll Free: [phone] A No. [id number] [facility] and Screen - ONCE [id number] 21:06:03 Test Item Value Reference Range Interpretation Comments ABO & RH (test code A Positive Performe d at [facility] = 20) Laboratory [facility] [address] [place], [place] [address]Toll Free: [phone] A No. [id number] IAT (test code = Negative Performed a t [facility] 1185) Laboratory [facility] Blood [place] [address]Toll Free: [phone] A No. [id number] [facility] and Screen - ONCE [id number] 21:06:03 Test Item Value Reference Range Interpretation Comments ABO & RH (test code A Positive Performe d at [facility] = 20) Laboratory [facility] Blood [place] [address]Toll Free: [phone] A No. [id number] IAT (test code = Negative Performed a t [facility] 1185) Laboratory [facility] Blood [place] [address]Toll Free: [phone] A No. [id number] [facility] and Screen - ONCE [id number] 21:06:03 Test Item Value Reference Range Interpretation Comments ABO & RH (test code A Positive Performe d at [facility] = 20) Laboratory [facility] Blood [place] [address]Toll Free: [phone] A No. [id number] IAT (test code = Negative Performed a t [facility] 1185) Laboratory [facility] [address] [place] [address]Mefx Free: [phone] A No. [id number] [facility] and Screen - ONCE [id number] 21:06:03 Test Item Value Reference Range Interpretation Comments ABO & RH (test code A Positive Performe d at [facility] = 20) Laboratory [facility] [address] [place], [place] [address]Toll Free: [phone] A No. [id number] IAT (test code = Negative Performed a t [facility] 1185) Laboratory [facility] [address] [place], [place] [address]Toll Free: [phone] A No. [id number] [facility] and Screen - ONCE [id number] 21:06:03 Test Item Value Reference Range Interpretation Comments ABO & RH (test code A Positive Performe d at [facility] = 20) Laboratory [facility] [address] [place], [place] [address]Toll Free: [phone] A No. [id number] IAT (test code = Negative Performed a t [facility] 1185) Laboratory [facility] Blood [place] [address]Toll Free: [phone] A No. [id number] [facility] and Screen - ONCE [id number] 21:06:03 Test Item Value Reference Range Interpretation Comments ABO & RH (test code A Positive Performe d at [facility] = 20) Laboratory [facility] Blood [place] [address]Toll Free: [phone] A No. [id number] IAT (test code = Negative Performed a t [facility] 1185) Laboratory [facility] Blood [place] [address]Toll Free: [phone] A No. [id number] [facility] and Screen - ONCE [id number] 21:06:03 Test Item Value Reference Range Interpretation Comments ABO & RH (test code A Positive Performe d at [facility] = 20) Laboratory [facility] [address] [place], [place] [address]Toll Free: [phone] A No. [id number] IAT (test code = Negative Performed a t [facility] 1185) Laboratory [facility] [address] [place], [place] [address]Toll Free: [phone] A No. [id number] [facility] Confirmation (Lab Only)2022-04-04 20:58:06 Test Item Value Reference Range Interpretation Comments ABO & RH (test code A Positive Performe d at [facility] = 20) Laboratory [facility] Blood [place] [address]Toll Free: [phone] A No. [id number] [facility] Confirmation (Lab Only)2022-04-04 20:58:06 Test Item Value Reference Range Interpretation Comments ABO & RH (test code A Positive Performe d at [facility] = 20) Laboratory [facility] Blood [place] [address]Toll Free: [phone] A No. [id number] [facility] Confirmation (Lab Only)2022-04-04 20:58:06 Test Item Value Reference Range Interpretation Comments ABO & RH (test code A Positive Performe d at [facility] = 20) Laboratory [facility] Blood [place] [address]Toll Free: [phone] A No. [id number] [facility] Confirmation (Lab Only)2022-04-04 20:58:06 Test Item Value Reference Range Interpretation Comments ABO & RH (test code A Positive Performe d at [facility] = 20) Laboratory [facility] Blood [place] [address]Toll Free: [phone] A No. [id number] [facility] Confirmation (Lab Only)2022-04-04 20:58:06 Test Item Value Reference Range Interpretation Comments ABO & RH (test code A Positive Performe d at [facility] = 20) Laboratory [facility] Blood [address]Toll Free: [phone] A No. [id number] [facility] Confirmation (Lab Only)2022-04-04 20:58:06 Test Item Value Reference Range Interpretation Comments ABO & RH (test code A Positive Performe d at [facility] = 20) Laboratory [facility] [address] [place], [place] [address]Toll Free: [phone] A No. [id number] [facility] Confirmation (Lab Only)2022-04-04 20:58:06 Test Item Value Reference Range Interpretation Comments ABO & RH (test code A Positive Performe d at [facility] = 20) Laboratory [facility] Blood [place] [address]Toll Free: [phone] A No. [id number] [facility] Confirmation (Lab Only)2022-04-04 20:58:06 Test Item Value Reference Range Interpretation Comments ABO & RH (test code A Positive Performe d at [facility] = 20) Laboratory [facility] Blood [place] [address]Toll Free: [phone] A No. [id number] [facility] Confirmation (Lab Only)2022-04-04 20:58:06 Test Item Value Reference Range Interpretation Comments ABO & RH (test code A Positive Performe d at [facility] = 20) Laboratory [facility] Blood [place] [address]Toll Free: [phone] A No. [id number] [facility] Confirmation (Lab Only)2022-04-04 20:58:06 Test Item Value Reference Range Interpretation Comments ABO & RH (test code A Positive Performe d at [facility] = 20) Laboratory [facility] [address] [place], [place] [address]Toll Free: [phone] A No. [id number] [facility] Confirmation (Lab Only)2022-04-04 20:58:06 Test Item Value Reference Range Interpretation Comments ABO & RH (test code A Positive Performe d at [facility] = 20) Laboratory [facility] [address] [place], [place] [address]Toll Free: [phone] A No. [id number] [facility] Confirmation (Lab Only)2022-04-04 20:58:06 Test Item Value Reference Range Interpretation Comments ABO & RH (test code A Positive Performe d at [facility] = 20) Laboratory [facility] Blood [place] [address]Toll Free: [phone] A No. [id number] [facility] Confirmation (Lab Only)2022-04-04 20:58:06 Test Item Value Reference Range Interpretation Comments ABO & RH (test code A Positive Performe d at [facility] = 20) Laboratory [facility] Blood [place] [address]Toll Free: [phone] A No. [id number] [facility] Confirmation (Lab Only)2022-04-04 20:58:06 Test Item Value Reference Range Interpretation Comments ABO & RH (test code A Positive Performe d at [facility] = 20) Laboratory [facility] Blood [place] [address]Toll Free: [phone] A No. [id number] [facility] Confirmation (Lab Only)2022-04-04 20:58:06 Test Item Value Reference Range Interpretation Comments ABO & RH (test code A Positive Performe d at [facility] = 20) Laboratory [facility] Blood [place] [address]Toll Free: [phone] A No. [id number] [facility] Confirmation (Lab Only)2022-04-04 20:58:06 Test Item Value Reference Range Interpretation Comments ABO & RH (test code A Positive Performe d at [facility] = 20) Laboratory [facility] Blood [place] [address]Toll Free: [phone] A No. [id number] [facility] Confirmation (Lab Only)2022-04-04 20:58:06 Test Item Value Reference Range Interpretation Comments ABO & RH (test code A Positive Performe d at [facility] = 20) Laboratory [facility] [address] [place], [place] [address]Toll Free: [phone] A No. [id number] [facility] Confirmation (Lab Only)2022-04-04 20:58:06 Test Item Value Reference Range Interpretation Comments ABO & RH (test code A Positive Performe d at [facility] = 20) Laboratory [facility] Blood [place] [address]Toll Free: [phone] A No. [id number] [facility] Confirmation (Lab Only)2022-04-04 20:58:06 Test Item Value Reference Range Interpretation Comments ABO & RH (test code A Positive Performe d at [facility] = 20) Laboratory [facility] Blood [address] Free: [phone] A No. [id number] [facility] Confirmation (Lab Only)2022-04-04 20:58:06 Test Item Value Reference Range Interpretation Comments ABO & RH (test code A Positive Performe d at [facility] = 20) Laboratory [facility] Blood [address] Free: [phone] A No. [id number] [facility] Confirmation (Lab Only)2022-04-04 20:58:06 Test Item Value Reference Range Interpretation Comments ABO & RH (test code A Positive Performe d at [facility] = 20) Laboratory [facility] [address] [place], [place] [address]Toll Free: [phone] A No. [id number] [facility] Confirmation (Lab Only)2022-04-04 20:58:06 Test Item Value Reference Range Interpretation Comments ABO & RH (test code A Positive Performe d at [facility] = 20) Laboratory [facility] [address] [place], [place] [address]Toll Free: [phone] A No. [id number] [facility]2022-04-04 20:58:06 Test Item Value Reference Range Interpretation Comments ABO & RH (test code A Positive Performe d at [facility] = 20) Laboratory Serv [facility] Blood Bank[address] [place], [place] [address]Toll Free: [phone] A No. [id number] [facility])2022-04-04 20:58:06 Test Item Value Reference Range Interpretation Comments ABO & RH (test code A Positive Performe d at [facility] = 20) Laboratory Serv [facility] Blood [facility] [place], [place] [address]Toll Free: [phone] A No. [id number] [facility], [id number] 19:40:46 Test Item Value Reference Range Interpretation Comments PREG SERUM (test code Negative = 6291032639) MEDHAT (test code = MEDHAT) Less than 10 IU/L. ?If low titer or ectopic is suspected, resubmit specimen in 48-72 hours. [facility], [id number] 19:40:46 Test Item Value Reference Range Interpretation Comments PREG SERUM (test code Negative = 0585921594) MEDHAT (test code = MEDHAT) Less than 10 IU/L. ?If low titer or ectopic is suspected, resubmit specimen in 48-72 hours. [facility], [id number] 19:40:46 Test Item Value Reference Range Interpretation Comments PREG SERUM (test code Negative = 9112701548) MEDHAT (test code = MEDHAT) Less than 10 IU/L. ?If low titer or ectopic is suspected, resubmit specimen in 48-72 hours. [facility], [id number] 19:40:46 Test Item Value Reference Range Interpretation Comments PREG SERUM (test code Negative = 3645397064) MEDHAT (test code = MEDHAT) Less than 10 IU/L. ?If low titer or ectopic is suspected, resubmit specimen in 48-72 hours. [facility], [id number] 19:40:46 Test Item Value Reference Range Interpretation Comments PREG SERUM (test code Negative = 8480492495) MEDHAT (test code = MEDHAT) Less than 10 IU/L. ?If low titer or ectopic is suspected, resubmit specimen in 48-72 hours. [facility], [id number] 19:40:46 Test Item Value Reference Range Interpretation Comments PREG SERUM (test code Negative = 7505900536) MEDHAT (test code = MEDHAT) Less than 10 IU/L. ?If low titer or ectopic is suspected, resubmit specimen in 48-72 hours. [facility], [id number] 19:40:46 Test Item Value Reference Range Interpretation Comments PREG SERUM (test code Negative = 7803933087) MEDHAT (test code = MEDHAT) Less than 10 IU/L. ?If low titer or ectopic is suspected, resubmit specimen in 48-72 hours. [facility], [id number] 19:40:46 Test Item Value Reference Range Interpretation Comments PREG SERUM (test code Negative = 4544961058) MEDHAT (test code = MEDHAT) Less than 10 IU/L. ?If low titer or ectopic is suspected, resubmit specimen in 48-72 hours. [facility], [id number] 19:40:46 Test Item Value Reference Range Interpretation Comments PREG SERUM (test code Negative = 9783920354) MEDHAT (test code = MEDHAT) Less than 10 IU/L. ?If low titer or ectopic is suspected, resubmit specimen in 48-72 hours. [facility], [id number] 19:40:46 Test Item Value Reference Range Interpretation Comments PREG SERUM (test code Negative = 3813007047) MEDHAT (test code = MEDHAT) Less than 10 IU/L. ?If low titer or ectopic is suspected, resubmit specimen in 48-72 hours. [facility], [id number] 19:40:46 Test Item Value Reference Range Interpretation Comments PREG SERUM (test code Negative = 9340333171) MEDHAT (test code = MEDHAT) Less than 10 IU/L. ?If low titer or ectopic is suspected, resubmit specimen in 48-72 hours. [facility], [id number] 19:40:46 Test Item Value Reference Range Interpretation Comments PREG SERUM (test code Negative = 8330272297) MEDHAT (test code = MEDHAT) Less than 10 IU/L. ?If low titer or ectopic is suspected, resubmit specimen in 48-72 hours. [facility], [id number] 19:40:46 Test Item Value Reference Range Interpretation Comments PREG SERUM (test code Negative = 2173892101) MEDHAT (test code = MEDHAT) Less than 10 IU/L. ?If low titer or ectopic is suspected, resubmit specimen in 48-72 hours. [facility], [id number] 19:40:46 Test Item Value Reference Range Interpretation Comments PREG SERUM (test code Negative = 8302801291) MEDHAT (test code = MEDHAT) Less than 10 IU/L. ?If low titer or ectopic is suspected, resubmit specimen in 48-72 hours. [facility], [id number] 19:40:46 Test Item Value Reference Range Interpretation Comments PREG SERUM (test code Negative = 3421962987) MEDHAT (test code = MEDHAT) Less than 10 IU/L. ?If low titer or ectopic is suspected, resubmit specimen in 48-72 hours. [facility], [id number] 19:40:46 Test Item Value Reference Range Interpretation Comments PREG SERUM (test code Negative = 9000942947) MEDHAT (test code = MEDHAT) Less than 10 IU/L. ?If low titer or ectopic is suspected, resubmit specimen in 48-72 hours. [facility], [id number] 19:40:46 Test Item Value Reference Range Interpretation Comments PREG SERUM (test code Negative = 5997481654) MEDHAT (test code = MEDHAT) Less than 10 IU/L. ?If low titer or ectopic is suspected, resubmit specimen in 48-72 hours. [facility] [facility], [id number] 19:40:46 Test Item Value Reference Range Interpretation Comments PREG SERUM (test code Negative = 2972663777) MEDHAT (test code = MEDHAT) Less than 10 IU/L. ?If low titer or ectopic is suspected, resubmit specimen in 48-72 hours. [facility] [id number] 19:40:46 Test Item Value Reference Range Interpretation Comments PREG SERUM (test code Negative = 3373416897) MEDHAT (test code = MEDHAT) Less than 10 IU/L. ?If low titer or ectopic is suspected, resubmit specimen in 48-72 hours. [facility] [id number] 19:40:46 Test Item Value Reference Range Interpretation Comments PREG SERUM (test code Negative = 2052938784) MEDHAT (test code = MEDHAT) Less than 10 IU/L. ?If low titer or ectopic is suspected, resubmit specimen in 48-72 hours. [facility] [id number] 19:40:46 Test Item Value Reference Range Interpretation Comments PREG SERUM (test code Negative = 4580715121) MEDHAT (test code = MEDHAT) Less than 10 IU/L. ?If low titer or ectopic is suspected, resubmit specimen in 48-72 hours. [facility] [id number] 19:40:46 Test Item Value Reference Range Interpretation Comments PREG SERUM (test code Negative = 9167664382) MEDHAT (test code = MEDHAT) Less than 10 IU/L. ?If low titer or ectopic is suspected, resubmit specimen in 48-72 hours. [facility] [id number] 19:40:46 Test Item Value Reference Range Interpretation Comments PREG SERUM (test code Negative = 8419486632) MEDHAT (test code = MEDHAT) Less than 10 IU/L. ?If low titer or ectopic is suspected, resubmit specimen in 48-72 hours. [facility] [id number] 19:40:46 Test Item Value Reference Range Interpretation Comments PREG SERUM (test code Negative = 0357476248) MEDHAT (test code = MEDHAT) Less than 10 IU/L. ?If low titer or ectopic is suspected, resubmit specimen in 48-72 hours. [facility] WITH [id number] 18:55:21 Test Item Value Reference Range Interpretation [...] RDW-SD (test code = 43.0 fL 39-49.9 31211-8) RDW-CV (test code = 13.2 % 12-15.5 788-0) PLT (test code = See_Comment [Automated 777-3) message] The system which generated this result transmit gómez reference range : 166 - 358 10*3/ ?L. The reference range was not u sed to interpret th is result as normal/abnormal . MPV (test code = 10.8 fL 9.5-12.9 10176-7) NRBC/100 WBC (test See_Comment [Automat ed code = 7974274435) message] The system which generated this result transmit gómez reference range : 0.0 - 10.0 /100 WBCs. The reference range was not used to interpret this result as normal/abnormal . NRBC x10^3 (test code See_Comment [Auto mated = 4722397778) message] The system which generated this result transmit gómez reference range : 10*3/?L. The reference range was not used to interpret this result as normal/abnormal . GRAN MAT (NEUT) % 82.1 % (test code = 770-8) IMM GRAN % (test code 0.60 % = 3128410778) LYMPH % (test code = 12.4 % 736-9) MONO % (test code = 4.3 % 5905-5) EOS % (test code = 0.1 % 713-8) BASO % (test code = 0.5 % 706-2) GRAN MAT x10^3(ANC) 10.62 10*3/uL 1.88-7.09 H (test code = 8291789535) IMM GRAN x10^3 (test 0.08 10*3/uL 0-0.06 H code = 6285998640) LYMPH x10^3 (test code 1.60 10*3/uL 1.32-3.29 = 731-0) MONO x10^3 (test code 0.56 10*3/uL 0.33-0.92 = 742-7) EOS x10^3 (test code = 0.03-0.39 L 711-2) BASO x10^3 (test code 0.06 10*3/uL 0.01-0.07 = 704-7) Lab Interpretation Abnormal (test code = 58189-8) [facility] ([id number])2022-04-04 18:55:21 Test Item Value Reference Range Interpretation Comments NA (test code = 141 mmol/L 135-145 3997748778) K (test code = 4.5 mmol/L 3.5-5 8539387071) CL (test code = 103 mmol/L 98-108 3932049928) CO2 TOTAL (test code = 27 mmol/L 23-31 2461184683) AGAP (test code = 2-16 4993876756) BUN (test code = 14 mg/dL 7-23 5860375442) GLUCOSE (test code = 115 mg/dL 70-110 H 6149312054) CREATININE (test code = 0.62 mg/dL 0.5-1.04 7648562021) TOTAL BILI (test code = 0.7 mg/dL 0.1-1.6 3509899793) CALCIUM (test code = 9.5 mg/dL 8.6-10.6 3498643008) T PROTEIN (test code = 7.3 g/dL 6.3-8.2 5134005798) ALBUMIN (test code = 4.7 g/dL 3.5-5 6313064485) ALK PHOS (test code = 65 U/L 34-122 6787593108) ALTv (test code = 22 U/L 5-35 1742-6) AST(SGOT) (test code = 39 U/L 13-40 2657085661) eGFR (test code = mL/min/1.73m2 8353590901) MEDHAT (test code = MEDHAT) Association of [...] tests). Lab Interpretation Abnormal (test code = 23316-3) [facility] 18:55:21 Test Item Value Reference Range Interpretation Comments LIPASE (test code = 1555579853) 70 U/L 0-220 Lab Interpretation (test code = Normal 18963-4) [facility] 18:55:21 Test Item Value Reference Range Interpretation Comments LIPASE (test code = 4312306895) 70 U/L 0-220 Lab Interpretation (test code = Normal 21603-4) [facility] ([id number])2022-04-04 18:55:21 Test Item Value Reference Range Interpretation Comments NA (test code = 141 mmol/L 135-145 4811585782) K (test code = 4.5 mmol/L 3.5-5 1406517805) CL (test code = 103 mmol/L 98-108 1911830979) CO2 TOTAL (test code = 27 mmol/L 23-31 5112958334) AGAP (test code = 2-16 9211660754) BUN (test code = 14 mg/dL 7-23 2394343767) GLUCOSE (test code = 115 mg/dL 70-110 H 2321683126) CREATININE (test code = 0.62 mg/dL 0.5-1.04 2744106401) TOTAL BILI (test code = 0.7 mg/dL 0.1-1.2 1645103007) CALCIUM (test code = 9.5 mg/dL 8.6-10.6 2094798817) T PROTEIN (test code = 7.3 g/dL 6.3-8.2 0817207256) ALBUMIN (test code = 4.7 g/dL 3.5-5 6702880252) ALK PHOS (test code = 65 U/L 34-122 6698660893) ALTv (test code = 22 U/L 5-35 1742-6) AST(SGOT) (test code = 39 U/L 13-40 0354007568) eGFR (test code = mL/min/1.73m2 4870140313) MEDHAT (test code = MEDHAT) Association of [...] tests). Lab Interpretation Abnormal (test code = 44619-7) [address]10-03 18:55:21 Test Item Value Reference Range Interpretation Comments LIPASE (test code = 9746964119) 70 U/L 0-220 Lab Interpretation (test code = Normal 33995-2) [address]10-03 18:55:21 Test Item Value Reference Range Interpretation Comments LIPASE (test code = 2299992443) 70 U/L 0-220 Lab Interpretation (test code = Normal 84517-1) [address]10-03 18:55:21 Test Item Value Reference Range Interpretation Comments LIPASE (test code = 9850488645) 70 U/L 0-220 Lab Interpretation (test code = Normal 99101-8) [address]10-03 18:55:21 Test Item Value Reference Range Interpretation Comments LIPASE (test code = 6128268990) 70 U/L 0-220 Lab Interpretation (test code = Normal 32607-0) [address]10-03 18:55:21 Test Item Value Reference Range Interpretation Comments LIPASE (test code = 6467437847) 70 U/L 0-220 Lab Interpretation (test code = Normal 52773-2) [address]10-03 18:55:21 Test Item Value Reference Range Interpretation Comments LIPASE (test code = 2814401107) 70 U/L 0-220 Lab Interpretation (test code = Normal 63579-4) [address]10-03 18:55:21 Test Item Value Reference Range Interpretation Comments LIPASE (test code = 2184526071) 70 U/L 0-220 Lab Interpretation (test code = Normal 93330-5) [address]10-03 18:55:21 Test Item Value Reference Range Interpretation Comments LIPASE (test code = 4800575647) 70 U/L 0-220 Lab Interpretation (test code = Normal 22294-8) [address]10-03 18:55:21 Test Item Value Reference Range Interpretation Comments LIPASE (test code = 2371179276) 70 U/L 0-220 Lab Interpretation (test code = Normal 46597-6) [address]10-03 18:55:21 Test Item Value Reference Range Interpretation Comments LIPASE (test code = 2979730069) 70 U/L 0-220 Lab Interpretation (test code = Normal 14324-1) [address]10-03 18:55:21 Test Item Value Reference Range Interpretation Comments LIPASE (test code = 1016619428) 70 U/L 0-220 Lab Interpretation (test code = Normal 90834-5) [address]10-03 18:55:21 Test Item Value Reference Range Interpretation Comments LIPASE (test code = 1833039600) 70 U/L 0-220 Lab Interpretation (test code = Normal 57978-9) [address]10-03 18:55:21 Test Item Value Reference Range Interpretation Comments LIPASE (test code = 2309365211) 70 U/L 0-220 Lab Interpretation (test code = Normal 51162-4) [address]10-03 18:55:21 Test Item Value Reference Range Interpretation Comments LIPASE (test code = 1159726426) 70 U/L 0-220 Lab Interpretation (test code = Normal 26166-2) [address]10-03 18:55:21 Test Item Value Reference Range Interpretation Comments LIPASE (test code = 5619713298) 70 U/L 0-220 Lab Interpretation (test code = Normal 22244-5) [address]10-03 18:55:21 Test Item Value Reference Range Interpretation Comments LIPASE (test code = 7447593931) 70 U/L 0-220 Lab Interpretation (test code = Normal 62356-0) [facility] 18:55:21 Test Item Value Reference Range Interpretation Comments LIPASE (test code = 0316504450) 70 U/L 0-220 Lab Interpretation (test code = Normal 39395-1) [facility] 18:55:21 Test Item Value Reference Range Interpretation Comments LIPASE (test code = 9054168367) 70 U/L 0-220 Lab Interpretation (test code = Normal 72878-0) [facility] 18:55:21 Test Item Value Reference Range Interpretation Comments LIPASE (test code = 8356336794) 70 U/L 0-220 Lab Interpretation (test code = Normal 03313-6) [facility] 18:55:21 Test Item Value Reference Range Interpretation Comments LIPASE (test code = 5366944294) 70 U/L 0-220 Lab Interpretation (test code = Normal 64542-6) [facility] 18:55:21 Test Item Value Reference Range Interpretation Comments LIPASE (test code = 4106525809) 70 U/L 0-220 Lab Interpretation (test code = Normal 96891-7) [facility] 18:55:21 Test Item Value Reference Range Interpretation Comments LIPASE (test code = 1726810856) 70 U/L 0-220 Lab Interpretation (test code = Normal 18077-6) [facility] ([id number])2022-04-01 04:58:46 Test Item Value Reference Range Interpretation Comments NA (test code = 139 mmol/L 135-145 6847552666) K (test code = 5.0 mmol/L 3.5-5 7323902373) CL (test code = 102 mmol/L 98-108 7390914513) CO2 TOTAL (test code 27 mmol/L 23-31 = 3794130880) AGAP (test code = 2-16 9428462295) BUN (test code = 13 mg/dL 7-23 8082587767) GLUCOSE (test code = 104 mg/dL 70-110 9694056160) CREATININE (test code 0.69 mg/dL 0.5-1.04 = 0996874735) TOTAL BILI (test code 0.5 mg/dL 0.1-1.1 = 7502296405) CALCIUM (test code = 9.6 mg/dL 8.6-10.6 9196496806) T PROTEIN (test code 7.2 g/dL 6.3-8.2 = 0930357223) ALBUMIN (test code = 4.6 g/dL 3.5-5 8810802570) ALK PHOS (test code = 60 U/L 34-122 6535845826) ALTv (test code = 15 U/L 5-35 2-6) AST(SGOT) (test code 26 U/L 13-40 = 2753558398) eGFR (test code = mL/min/1.73m2 9614475620) MEDHAT (test code = MEDHAT) Association of [...] or urine or abnormalities in imaging tests). [facility] 04:58:25 Test Item Value Reference Range Interpretation Comments LIPASE (test code = 0251931351) 71 U/L 0-220 Lab Interpretation (test code = Normal 82955-4) [facility] WITH [id number] 04:46:42 Test Item Value Reference Range Interpretation Comments WBC (test code = See_Comment [Automated message] 6690-2) The system [employer] generated this result transmitted ref erence range: 4.30 - 1 1.10 10*3/?L. The re ference range was not u sed to interpret this result as normal/abnor mal. RBC (test code = See_Comment [Automated message] 789-8) The system [employer] generated this result transmitted ref erence range: [...] RDW-SD (test code 42.5 fL 39-49.9 = 09817-4) RDW-CV (test code 13.2 % 12-15.5 = 788-0) PLT (test code = See_Comment [Automated message] 777-3) The system [employer] generated this result transmitted ref erence range: 166 - 35 8 10*3/?L. The re ference range was not u sed to interpret this result as normal/abnor mal. MPV (test code = 10.4 fL 9.5-12.9 17238-0) NRBC/100 WBC (test See_Comment [Automat ed message] code = 9181349515) The syste m which generated this result transmitted ref erence range: 0.0 - 10 .0 /100 WBCs. The refer ence range was not u sed to interpret this result as normal/abnor mal. NRBC x10^3 (test See_Comment [Automated message] code = 2496524284) The syste m which generated this result transmitted ref erence range: 10*3/?L. The reference range was not used to interpr et this result as normal/abnormal . GRAN MAT (NEUT) % 69.5 % (test code = 770-8) IMM GRAN % (test 0.40 % code = 9040113996) LYMPH % (test code 23.3 % = 736-9) MONO % (test code 5.3 % = 5905-5) EOS % (test code = 0.7 % 713-8) BASO % (test code 0.8 % = 706-2) GRAN MAT 5.73 10*3/uL 1.88-7.09 x10^3(ANC) (test code = 7149518504) IMM GRAN x10^3 0.03 10*3/uL 0-0.06 (test code = 4298942657) LYMPH x10^3 (test 1.92 10*3/uL 1.32-3.29 code = 731-0) MONO x10^3 (test 0.44 10*3/uL 0.33-0.92 code = 742-7) EOS x10^3 (test 0.06 10*3/uL 0.03-0.39 code = 711-2) BASO x10^3 (test 0.07 10*3/uL 0.01-0.07 code = 704-7) [facility] [id number] 04:37:00 Test Item Value Reference Range Interpretation Comments POCT PREG (test code = 1605) negative Lab Interpretation (test code = Normal 55662-2) [facility] [id number] 04:37:00 Test Item Value Reference Range Interpretation Comments POCT PREG (test code = 1605) negative Lab Interpretation (test code = Normal 13660-7) [facility] [id number] 14:05:00 Test Item Value Reference Range Interpretation Comments Coronavirus NAAT, COVD19 SARS results, (test code = including Patient [id number]) Name, or MRN, were Coronavirus NAAT, COVD19 ical-devices/emergenc (test code = x-veo-jqckajygexnjze. VKZCDEB0HQBV4.1) SARS-CoV-2 NAAT Result: Positive by RT-PCR A (test code = SARS-CoV-2 NAAT Result:) COVID-19 Status: AsymptomaticHCG, Urine Qual (LAB)2021-07-09 14:05:00 Test Item Value Reference Range Interpretation Comments HCG, Urine, Qual (test code = HCGU) Negative Negative Drug Screen,[id number] 14:05:00 Test Item Value Reference Range Interpretation [...] Negative code = UPROP) UA, Urinalysis w [id number] 14:05:00 Test Item Value Reference Range Interpretation Comments Color,Urine (test code = Yellow Yellow UCOL) Clarity,Urine (test code = Clear Clear UCLAR) Ph, Urine (test code = UPH) 8.5 5.0-8.0 H Specific [place],Urine 1.020 1.005-1.030 N (test code = USG) [...] Seen A UBACT) Complete Blood Count Auto [id number] 13:20:00 Test Item Value Reference Range Interpretation [...] code = NRBCP) 0 % Comprehensive Metabolic [id number] 13:20:00 Test Item Value Reference Range Interpretation [...] 72 U/L 46-116 N = ALP) Ethanol [id number] 13:20:00 Test Item Value Reference Range Interpretation [...] = HCGU) Negative Negative UA, Urinalysis Rflx Cult/[id number] 00:20:00 Test Item Value Reference Range Interpretation Comments Color,Urine (test code = Yellow Yellow UCOL) Clarity,Urine (test code = Clear Clear UCLAR) PH,Urine (test code = 7.5 5.5-8.5 UPH.XX) Specific [place],Urine 1.020 1.005-1.030 N (test code = USG) [...] cells/uL Negative (test code = ULEU) Urine [id number] 00:20:00 Test Item Value Reference Range Interpretation Comments RBC,Urine (test code = URBC.XX) 0-5 /HPF None Seen WBC,Urine (test code = UWBC.XX) 6-10 /HPF None Seen A Squamous Epithelial Cell,Urine 74-200 /HPF None Seen A (test code = USQEPI.XX) Bacteria,Urine (test code = Moderate /HPF None Seen A UBACT) Drug Screen,[id number] 00:20:00 Test Item Value Reference Range Interpretation [...] code = UPROP) Complete Blood Count Auto [id number] 00:09:00 Test Item Value Reference Range Interpretation [...] code = NRBCP) 0 % Comprehensive Metabolic [id number] 00:09:00 Test Item Value Reference Range Interpretation [...] 83 U/L 46-116 N = ALP) Ethanol [id number] 00:09:00 Test Item Value Reference Range Interpretation Comments Ethanol (test code < 3 mg/dL The pharm acological = ETOH) response to blo od alcohol levels mayvary from individual to i ndividual. The fatal ezio ntrationhas been reported t o be >400mg/dL. Coronavirus PCR, COVID19 [id number] 00:08:00 Test Item Value Reference Range Interpretation Comments Coronavirus PCR, For use under Emergency COVID19 Rapid (test Use Authorization (EUA) code = SARSCOV2) only. Coronavirus PCR, Reference Range: COVID19 Rapid (test Negative code = NZTEWWK71.1) SARS-CoV-2 PCR Result: Negative by RT-PCR (test code = SARS-CoV-2 PCR Result:) COVID-19 Status: AsymptomaticCARBAMAZEPHINE (TEGRETOL)2020-09-26 08:42:00 Test Item Value Reference Range Interpretation Comments CARBAMAZPN (test code = 98A) 19.3 ug/mL 4.0-12.0 HH CARBAMAZEPHINE (TEGRETOL)2020-09-26 05:04:00 Test Item Value Reference Range Interpretation Comments CARBAMAZPN (test code = 98A) 20.1 ug/mL 4.0-12.0 HH URINALYSIS WITH [id number] 02:45:00 Test Item Value Reference Range Interpretation [...] code = USPERM) /HPF NONE DRUGS OF [id number] 02:43:00 Test Item Value Reference Range Interpretation [...] the FDA and the [employer] (CAP) are more stringent than those required for this test. Therefore, the result should be interpreted with caution and close attention to other clinical and epidemiological data PRO TIME AND [id number] 00:51:00 Test Item Value Reference Range Interpretation [...] Heparin. Order Code is ANTI-XA COMPREHENSIVE METABOLIC [id number] 00:47:00 Test Item Value Reference Range Interpretation [...] as normal/abnormal . GFR 154 See_Comment [Automated LAO (test mL/min/1.73m\\S\\2 message] The code = GFRAA) [...] to interpret this result as normal/abnormal . [id number] 00:47:00 Test Item Value Reference Range Interpretation Comments ACETAMINPH (test code = 94M) 3.6 ug/mL 10.0-30.0 L CARDIAC [id number] 00:47:00 Test Item Value Reference Range Interpretation [...] interpret th is result as normal/abnormal . [id number] 00:42:00 Test Item Value Reference Range Interpretation Comments SALICYLATE (test code = 94B) <1.7 mg/dL 2.8-20.0 L SERUM [id number] 00:38:00 Test Item Value Reference Range Interpretation [...]
[2023-04-25] MEDS ORDERED: ONDANSETRON 4 MG/2 ML VIAL ONE (11:32)
[2023-04-25] MEDS ORDERED: MORPHINE 4 MG/ML SYR ONE (11:32)
--- NOTE | 2023-04-25 12:24 | RAD REPORT ---
EXAM DESCRIPTION: US - Transvaginal Study Probe - 04/25/2023 11:47 am CLINICAL HISTORY: Pelvic pain/vaginal bleeding COMPARISON: none FINDINGS: The uterus measures 5 x 3 x 4 cm. A fibroid is not seen. The endometrial stripe is normal thickness. An IUD is present within the endometrium of uterine fundus. Right ovary is normal in size and echotexture. 4.4 centimeter left ovarian cyst is present. Blood flow is present the left ovary. The right and left adnexa unremarkable No significant free fluid is seen. IMPRESSION: 4.4 centimeter left ovarian cyst most likely benign. Follow-up ultrasound in 1 year shari mmended
[2023-04-25 13:19] LABS: Absolute Lymphocytes (CBC) 2.2 K/uL (0.7-4.9); Hematocrit 45.4 % (36.0-45.0); Lymphocytes % 27.7 % (15.3-44.8); MPV 8.2 fL (7.6-11.3); Platelets 311 thou/uL (152-406); RBC Red Blood Cell Count 5.22 M/uL (3.86-4.86)
[2023-04-25 13:37] LABS: Potassium 3.5 mEq/L (3.5-5.1)
[2023-04-25 14:12] LABS: Urine Bacteria None Seen /HPF (<20); Urine Bilirubin NEGATIVE (Negative); Urine Blood Negative (Negative); Urine Clarity Turbid (Clear); Urine Color Light-Yellow (Yellow); Urine Glucose NEGATIVE (Negative); Urine Mucus Slight /HPF (None Seen); Urine Protein NEGATIVE (Negative); Urine Urobilinogen Normal (Normal)
--- NOTE | 2023-04-25 14:17 | EDPHYS ---
Physician Documentation [facility] Name: Vanda Pompa Age: 22 yrs Sex: Female : 2000 Arrival Date: 04/25/2023 Time: 10:53 Bed 19 Private MD: ED Physician Henri Moreno HPI: 04/25 11:51 This 22 yrs old Female presents to ER via Ambulatory with complaints of Abdominal jh7 Cramping, Vaginal Bleeding, dysuria. 11:51 22-year-old female presents with abdominal cramping, vaginal spotting, and difficulty jh7 sleeping for the past month. Reports that she has been on testosterone for the past 2 months. Also reports recent burning with urination. Denies any fever or back pain.. 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 - Social history:: Smoking status: Reported history of juuling and/or vaping. ROS: 11:51 Constitutional: Negative for fever, chills, and weight loss, Eyes: Negative for injury, jh7 pain, redness, and discharge, Neck: Negative for injury, pain, and swelling, Cardiovascular: Negative for chest pain, palpitations, and edema, Respiratory: Negative for shortness of breath, cough, wheezing, and pleuritic chest pain, Back: Negative for injury and pain, MS/Extremity: Negative for injury and deformity, Skin: Negative for injury, rash, and discoloration, Neuro: Negative for headache, weakness, numbness, tingling, and seizure, 11:51 Abdomen/GI: Positive for abdominal cramps, Negative for nausea, vomiting, and diarrhea, 11:51 : Positive for burning with urination, vaginal bleeding, 11:51 All other systems are negative, Exam: 11:51 Constitutional: This is a well developed, well nourished patient who is awake, alert, jh7 and in no acute distress. Head/Face: Normocephalic, atraumatic. Neck: Trachea midline, no thyromegaly or masses palpated, and no cervical lymphadenopathy. Supple, full range of motion without nuchal rigidity, or vertebral point tenderness. No Meningismus. Cardiovascular: Regular rate and rhythm with a normal S1 and S2. No gallops, murmurs, or rubs. Normal PMI, no JVD. No pulse deficits. Respiratory: Lungs have equal breath sounds bilaterally, clear to auscultation and percussion. No rales, rhonchi or wheezes noted. No increased work of breathing, no retractions or nasal flaring. Abdomen/GI: Soft, non-tender, with normal bowel sounds. No distension or tympany. No guarding or rebound. No evidence of tenderness throughout. Skin: Warm, dry with normal turgor. Normal color with no rashes, no lesions, and no evidence of cellulitis. MS/ Extremity: Pulses equal, no cyanosis. Neurovascular intact. Full, normal range of motion. Neuro: Awake and alert, GCS 15, oriented to person, place, time, and situation. Normal gait. 11:51 Abdomen/GI: Inspection: abdomen appears normal, Bowel sounds: normal, Palpation: abdomen is soft and non-tender, Vital Signs: 11:50 BP 116 / 74; Pulse 106; Resp 16 S; Temp 98.1; Pulse Ox 100% on R/A; Weight 57.61 kg cm10 (R); Height 5 ft. 3 in. (R); Pain 8/10; 13:30 BP 108 / 64; Pulse 89; Resp 16; Pulse Ox 100% on R/A; db 14:30 BP 123 / 78; Pulse 93; Resp 18; Pulse Ox 100% on R/A; db 11:50 Body Mass Index 22.50 (57.61 kg, 160.02 cm) cm10 11:50 Pain Scale: Adult cm10 MDM: 11:01 Patient medically screened. [facility] 14:16 Differential diagnosis: UTI, ovarian cyst, ovarian torsion, menorrhagia. Data reviewed: [facility] vital signs, nurses notes, lab test result(s), radiologic studies, ultrasound. Historians other than the Patient: Spouse/Significant Other: . Counseling: I had a detailed discussion with the patient and/or guardian regarding the historical points, exam findings, and any diagnostic results supporting the discharge/admit diagnosis, the need for outpatient follow up, an OB/Gyne specialist, to return to the emergency department if symptoms worsen or persist or if there are any questions or concerns that arise at home. 04/25 11:17 Order name: Basic Metabolic Panel; Complete Time: 14:05 [facility] 04/25 11:17 Order name: CBC with Diff; Complete Time: 13:21 [facility] 04/25 11:17 Order name: Test, Urine; Complete Time: 14:14 [facility] 04/25 11:17 Order name: Urinalysis w/ reflexes; Complete Time: 14:14 [facility] 04/25 14:15 Order name: Urine Culture [facility] 04/25 11:17 Order name: Transvaginal Study (probe); Complete Time: 12:27 [facility] 04/25 11:17 Order name: IV Saline Lock; Complete Time: 13:34 [facility] 04/25 11:17 Order name: Labs collected and sent; Complete Time: 13:34 [facility] 04/25 11:17 Order name: NPO; Complete Time: 13:34 [facility] Administered Medications: No medications were administered Disposition Summary: 04/25/23 14:17 Discharge Ordered Notes: Location: Home [facility] Problem: new [facility] Symptoms: are unchanged [facility] Condition: Stable [facility] Diagnosis - Other ovarian cysts [facility] - UTI/ Urinary tract infection, site not specified [facility] Followup: [facility] - With: Private Physician - When: 2 - 3 days - Reason: Recheck today's complaints Discharge Instructions: - Discharge Summary Sheet [facility] - Ovarian Cyst [facility] - Urinary Tract Infection, Adult [facility] Forms: - Medication Reconciliation Form [facility] - Thank You Letter [facility] - Antibiotic Education [facility] - Patient Portal Instructions [facility] - Leadership Thank You Letter [facility] Prescriptions: - Macrobid 100 mg Oral Capsule - take 1 capsule ORAL route every 12 hours for 7 days; 14 capsule; Refills: 0, 7 Product Selection Permitted Addendum: 04/26/2023 18:18 Co-signature as Attending Physician, Henri Moreno MD. e c2 Signatures: Dispatcher [employer] Ruchi Flor, NIYAH DISABILITY RATER 7 Helene Diop, OLGA RN cm10 Henri Moreno MD MD ec2
--- NOTE | 2023-04-25 14:17 | ER ---
Nurse's Notes [facility] Name: Vanda Pompa Age: 22 yrs Sex: Female : 2000 Arrival Date: 04/25/2023 Time: 10:53 Bed 19 Private MD: Diagnosis: Other ovarian cysts;UTI/ Urinary tract infection, site not specified Presentation: 04/25 11:50 Chief complaint: Patient states: vaginal bleeding, cramping, and "weird smell" X1 cm10 month. Coronavirus screen: Vaccine status: Patient reports receiving the 2nd dose of the covid vaccine. Client denies travel out of the [place] in the last 14 days. Ebola Screen: Patient denies travel to an Ebola-affected area in the 21 days before illness onset. No symptoms or risks identified at this time. Initial Sepsis Screen: Does the patient meet any 2 criteria? No. Patient's initial sepsis screen is negative. Does the patient have a suspected source of infection? No. Patient's initial sepsis screen is negative. Risk Assessment: Do you want to hurt yourself or someone else? Patient reports no desire to harm self or others. Onset of symptoms was April 25, 2023. 11:50 Method Of Arrival: Ambulatory cm10 11:50 Acuity: FREDY 3 cm10 Triage Assessment: 11:51 General: Appears in no apparent distress. comfortable, Behavior is calm, cooperative. cm10 Neuro: No deficits noted. Level of Consciousness is awake, alert, obeys commands, Oriented to person, place, time, situation. 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 - Social history:: Smoking status: Reported history of juuling and/or vaping. Screenin:35 [facility] ED Fall Risk Assessment (Adult) History of falling in the last 3 months, db including since admission No falls in past 3 months (0 pts) Confusion or Disorientation No (0 pts) Intoxicated or Sedated No (0 pts) Impaired Gait No (0 pts) Mobility Assist Device Used No (0 pt) Altered Elimination No (0 pt) Score/Fall Risk Level 0 - 2 = Low Risk Oriented to surroundings, Maintained a safe environment. Abuse screen: Denies threats or abuse. Denies injuries from another. Nutritional screening: No deficits noted. Tuberculosis screening: No symptoms or risk factors identified. Assessment: 13:05 Reassessment: Patient appears in no apparent distress at this time. Patient and/or db family updated on plan of care and expected duration. Pain level reassessed. Patient is alert, oriented x 3, equal unlabored respirations, skin warm/dry/pink. ABD PAIN AND CRAMPING WITH VAGINAL BLEEDING X 1 MONTH. General: Appears in no apparent distress. comfortable, Behavior is calm, cooperative. Pain: Complains of pain in abdomen. GI: Bowel sounds Abd is soft. 14:30 Reassessment: Patient appears in no apparent distress at this time. Patient and/or db family updated on plan of care and expected duration. Pain level reassessed. Patient states feeling better. Patient states symptoms have improved. Neuro: Level of Consciousness is awake, alert, obeys commands, Oriented to person, place, time, situation. Vital Signs: 11:50 BP 116 / 74; Pulse 106; Resp 16 S; Temp 98.1; Pulse Ox 100% on R/A; Weight 57.61 kg cm10 (R); Height 5 ft. 3 in. (R); Pain 8/10; 13:30 BP 108 / 64; Pulse 89; Resp 16; Pulse Ox 100% on R/A; db 14:30 BP 123 / 78; Pulse 93; Resp 18; Pulse Ox 100% on R/A; db 11:50 Body Mass Index 22.50 (57.61 kg, 160.02 cm) cm10 11:50 Pain Scale: Adult cm10 ED Course: 10:59 Patient arrived in ED. im 11:01 Ruchi Still FNP is [facility]. jh7 11:01 Henri Moreno MD is Attending Physician. jh7 11:49 Transvaginal Study (probe) In Process Unspecified. EDMS 11:51 Triage completed. cm10 11:52 Arm band placed on Patient placed in waiting room. cm10 12:31 April Stokes, OLGA is Primary Nurse. db 13:10 Inserted saline lock: 22 gauge in left antecubital area, using aseptic technique. Blood db collected. 13:35 No provider procedures requiring assistance completed. db 14:00 Test, Urine Sent. mb9 14:00 Urinalysis w/ reflexes Sent. 9 14:39 Patient has correct armband on for positive identification. Bed in low position. Call db light in reach. Side rails up X 1. Provided Education on: DISCHARGE. 14:39 Pulse ox on. NIBP on. Warm blanket given. db 14:39 IV discontinued, intact, bleeding controlled, No redness/swelling at site. db Administered Medications: No medications were administered Medication: 14:39 VIS not applicable for this client. db Outcome: 14:17 Discharge ordered by . arelis 14:39 Discharged to home ambulatory, with friend, db 14:39 Condition: stable 14:39 Discharge instructions given to patient, friend, Instructed on discharge instructions, follow up and referral plans. Prescriptions given X 1, 14:41 Patient left the ED. db Signatures: Dispatcher [employer] EDMS Ruchi Still, WEB SITE ADMINISTRATOR WEB SITE ADMINISTRATOR 7 April Stokes, RN RN Purnima Figueroa, RN RN mb9 Sindi Samuels Clarissa, RN RN cm10
== END 2023-04-25 14:41 | disposition home or self-care (01) ==
LOC: ER 10:53
DX: N39.0 Urinary tract infection, site not specified (principal); N83.299 Other ovarian cyst, unspecified side
CPT/HCPCS: 87088; 85025; 81001; 87086; 80048; 36415; 81025; 76830; J2405

== ENCOUNTER 2023-04-27 23:05 | Emergency (ER) | payer OTHER ==
--- OUTSIDE RECORDS SUMMARY | 2023-04-27 23:44 | XMS REPORT | Continuity of Care Document ---
:2000 Author Organization [facility] t Address [address] [facility]. [address] [place] [address] Support Name Relationship Address Phone NONE, NO ONE UN [address] [place] [address] NONE, NO ONE UN [address] [place] [address] Dona Sanford Aunt [address] [place] [address] Elvin Pompa Grandmother [address] [facility] [place] [address] UN Unavailable Unavailable Unavailable Unavailable Unavailable Unavailable Unavailable NONE, NONE SA [address] [phone] [place] [address] ELVIN POMPA Grandparent [address] + [place] [address] ELVIN POMPA Grandparent [address] [facility] [place] [address] Elvin Pompa Grandparent [address] [facility] [address] [place] [address] ELVIN POMPA Grandparent [address] [facility] [id number] [place] [address] Elvin Pompa Grandparent [id number] + [place] [address] Vicenta Lynn Emergency Contact [address] [place] [address] Care Team Providers Name Role Phone Pcp, Patient Does Not Have A Primary Care Physician [phone] 00-0000 SHEA-AVILA, ALEJANDRA Attending Clinician Unavailable ALEJANDRA MORROW Attending Clinician Unavailable SUSAN VALVERDE Attending Clinician Unavailable DEONNA MELENDREZ Attending Clinician Unavailable Deonna Ferrell Attending Clinician Ole SALES FORCE DEVELOPERGodwin Ureña Attending Clinician Lab, Ang - Db Attending Clinician Unavailable GODWIN HANDY Attending Clinician Unavailable Susan Valverde MD Attending Clinician Pcp-Lab Attending Clinician Unavailable Doctor Unassigned, [place] Attending Clinician Unavailable LUCINDA WILLS Attending Clinician Unavailable Pcp, Patient Does Not Have A Attending Clinician [phone] Bouchra Mcintosh MD Attending Clinician BOUCHRA MCINTOSH Attending Clinician Unavailable JAMES JACOBS Attending Clinician Unavailable TEJAL FORD Attending Clinician Unavailable ELENITA SHARMA Attending Clinician Unavailable Jose Guzmán Attending Clinician Unavailable Eric Moore Attending Clinician Unavailable HANDY DOMINGUEZ Attending Clinician Unavailable IRASEMA ROBLEDO Attending Clinician Unavailable Venkat SALES FORCE DEVELOPERIrasema Ureña Attending Clinician Shivani Castaneda Attending Clinician Nurse, [facility] Attending Clinician Unavailable SHIVANI GUERRA Attending Clinician Unavailable Negrita Moise LVN Attending Clinician Keagan Luo MD Attending Clinician Clinic-Stv, Care Transition Attending Clinician Unavailable NOLVIA HUSAIN Attending Clinician Unavailable Nolvia Husain MD Attending Clinician Vignesh Mack MD Attending Clinician Vaccine, [facility] Attending Clinician Unavailable VIGNESH MACK Attending [...] Unavailable James Jacobs MD Attending Clinician Josephine LB, Britt Rm Attending Clinician Unavailable Burke Beckett MD Attending Clinician BURKE BECKETT Attending Clinician Unavailable Paolo Rivera MD Attending Clinician Tim Holguin MD Attending Clinician TIM HOLGUIN Attending Clinician Unavailable Immunization, [facility] Attending Clin ician Unavailable FALLS, CHELSY MCKEON [...] Date Ex[place] Date [place] [id number] [facility] MEDICAID [place] [id number] 2021 00:00:00 [facility] [id number] 2016 [facility] MEDICAID 00:00:00 Problems Condition Condition Condition Status Onset Resolution Last Treating Co mments Source Name Details Category Date Date Treatment Clinician Date Drug abuse Drug abuse Disease Active 2022-07 U nivers 0-26 ity of 00:00: [place] 00 Medical Branch Trauma Trauma Disease Active 2021-07 Univers 0-03 ity of 00:00: [place] [facility] Menorrhagi Menorrhagi Disease Active U [...] 0-20 ity of bleeding bleeding 00:00: [place] (AUB) (AUB) 00 Medical Branch SANDRA SANDRA Disease Active Univers (generaliz (generaliz 1-11 it y of ed [place] disorder[place] disorder[place] 00 [facility] Attention Attention Disease Active 2008-07 Overview: Univers deficit deficit 2-22 Formatt[place] ity o f hyperactiv hyperactiv 00:00: g of this [place] ity ity 00 note Medical disorder disorder might be Bran ch (ADHD) (ADHD) different from the original. 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 Allergies, Adverse Reactions, Alerts Allergy Allergy Status Severity Reaction(s) Onset Inactive Treating Comm ents Source Name Type Date Date Clinician No Known DA Active U [facility] 07-15 [place] [facility] 00:[facility]: [facility] 00 are [place] No Known DA Active U [facility] 07-04 [place] [facility] No Known DA Active U [facility] 07-09 Allergie 00:00: s 00 No Known DA [facility]ergie 00:00: s 00 Unable DA [facility] 2020[facility] Assess 00:00: 00 NO KNOWN Drug Active Univers ALLERGIE Class ity of S [facility] No Known DA Active [facility] s Family History Family Member Diagnosis Comments Start Date Stop Date Source Natural brother Psychiatry [facility] Natural father Alcohol abuse Univers [facility] Natural father Substance abuse Unive [facility] Natural mother Psychiatry [facility] Social History Social Habit Start Date Stop Date Quantity Comments Source Gender identity [facility] SDMA University o f Alcohol Comment [place] Med ical Branch Alcohol intake 2023-04-27 2023-04-27 Lifetime University of 00:00:00 00:00:00 non-drinker [facility] (finding) Branch History of Social 2023-04-18 2023-04-18 Univers ity of function 00:00:00 00:00:00 [facility] Exposure to 2022-11-15 2022-11-25 Not sure [facility] SARS-CoV-2 (event) 00:00:00 08:41:00 [facility] Tobacco use and 2022-01-17 2022-01-17 Smokeless Universit y of exposure 00:00:00 00:00:00 tobacco non-user [place] Me dical Branch History SDOH 2020-04-20 2020-04-20 1 University o f Alcohol Frequency 00:00:00 00:00:00 [place] M edical Branch History SDOH 2020-04-20 2020-04-20 99 University o f Alcohol Std Drinks 00:00:00 00:00:00 [place] Medical [facility] History SDOH 2020-04-20 2020-04-20 1 University o f Alcohol Binge 00:00:00 00:00:00 [facility] al Branch Sex Assigned At [birth year] Universit y of 00:00:00 00:00:00 [facility] Smoking Status Start Date Stop Date Source Never smoked tobacco [facility] Medications Ordered Filled Start Stop Current Ordering Indication Dosage Frequency Signature Comments Components Source Medication Medication Date Date Medication? Clinician (SIG) Name Name ketorolac 2022-07 No 60mg 60 mg, Unive rs (TORADOL) 0-25 10-25 Intramuscu ity of injection 00:00: 00:12 [place], ONCE, [place] 60 mg 00 :00 1 dose, On Medical Tue Branch 04/25/23 at 1900, ARLEN ketorolac 2022-07 Yes [id number] 10mg Take 1 Univers 10 mg 0-24 [id number] tablet by ity of tablet 00:00: mouth [place] 00 every 6 Medical (six) Branch hours as needed for Pain (scale 4-6). ketorolac 2022-07 Yes [id number] 10mg Take 1 Univers 10 mg 0-24 [id number] tablet by ity of tablet 00:00: mouth [place] 00 every 6 Medical (six) Branch hours as needed for Pain (scale 4-6). ketorolac 2022-07 Yes [id number] 10mg Take 1 Univers 10 mg 0-24 [id number] tablet by ity of tablet 00:00: mouth [place] 00 every 6 Medical (six) Branch hours as needed for Pain (scale 4-6). ketorolac 2022-07 Yes [id number] 10mg Take 1 Univers 10 mg 0-24 [id number] tablet by ity of tablet 00:00: mouth [place] 00 every 6 Medical (six) Branch hours as needed for Pain (scale 4-6). ARIPiprazol 2022-07 Yes [id number] 15mg Take 1 Un kayleen e 15 mg 0-17 tablet by ity of tablet 00:00: mouth in [place] 00 the Medical morning. Branch atomoxetine 2022-07 Yes [id number] 80mg Take 1 Univers 80 mg 0-17 capsule by ity of capsule 00:00: mouth in [place] 00 the Medical morning. Branch naltrexone 2022-07 Yes [id number] 50mg Take 1 U nivers 50 mg 0-17 tablet by ity of tablet 00:00: mouth in [place] 00 the Medical morning. Branch ARIPiprazol 2022-07 Yes [id number] 15mg Take 1 Un kayleen e 15 mg 0-17 tablet by ity of tablet 00:00: mouth in [place] 00 the Medical morning. Branch atomoxetine 2022-07 Yes [id number] 80mg Take 1 Univers 80 mg 0-17 capsule by ity of capsule 00:00: mouth in [place] the Medical morning. Branch naltrexone 2022-07 Yes [id number] 50mg Take 1 U nivers 50 mg 0-17 tablet by ity of tablet 00:00: mouth in [place] the Medical morning. Branch ARIPiprazol 2022-07 Yes [id number] 15mg Take 1 Un kayleen e 15 mg 0-17 tablet by ity of tablet 00:00: mouth in [place] 00 the Medical morning. Branch atomoxetine 2022-07 Yes [id number] 80mg Take 1 Univers 80 mg 0-17 capsule by ity of capsule 00:00: mouth in [place] the Medical morning. Branch naltrexone 2022-07 Yes [id number] 50mg Take 1 U nivers 50 mg 0-17 tablet by ity of tablet 00:00: mouth in [place] the Medical morning. Branch ARIPiprazol 2022-07 Yes [id number] 15mg Take 1 Un kayleen e 15 mg 0-17 tablet by ity of tablet 00:00: mouth in [place] the Medical morning. Branch atomoxetine 2022-07 Yes [id number] 80mg Take 1 Univers 80 mg 0-17 capsule by ity of capsule 00:00: mouth in [place] the Medical morning. Branch naltrexone 2022-07 Yes [id number] 50mg Take 1 U nivers 50 mg 0-17 tablet by ity of tablet 00:00: mouth in [place] the Medical morning. Branch ARIPiprazol 2022-07 Yes [id number] 15mg Take 1 Un kayleen e 15 mg 0-17 tablet by ity of tablet 00:00: mouth in [place] 00 the Medical morning. Branch atomoxetine 2022-07 Yes [id number] 80mg Take 1 Univers 80 mg 0-17 capsule by ity of capsule 00:00: mouth in [place] 00 the Medical morning. Branch naltrexone 2022-07 Yes [id number] 50mg Take 1 U nivers 50 mg 0-17 tablet by ity of tablet 00:00: mouth in [place] 00 the Medical morning. Branch ARIPiprazol 2022-07 Yes [id number] 15mg Take 1 Un kayleen e 15 mg 0-17 tablet by ity of tablet 00:00: mouth in [place] 00 the Medical morning. Branch atomoxetine 2022-07 Yes [id number] 80mg Take 1 Univers 80 mg 0-17 capsule by ity of capsule 00:00: mouth in [place] 00 the Medical morning. Branch naltrexone 2022-07 Yes [id number] 50mg Take 1 U nivers 50 mg 0-17 tablet by ity of tablet 00:00: mouth in [place] 00 the Medical morning. Branch ARIPiprazol 2022-07 Yes [id number] 15mg Take 1 Un kayleen e 15 mg 0-17 tablet by ity of tablet 00:00: mouth in [place] 00 the Medical morning. Branch atomoxetine 2022-07 Yes [id number] 80mg Take 1 Univers 80 mg 0-17 capsule by ity of capsule 00:00: mouth in [place] 00 the morning. Branch naltrexone 2022-07 Yes [id number] 50mg Take 1 U nivers 50 mg 0-17 tablet by ity of tablet 00:00: mouth in [place] 00 the morning. Branch Lamotrigine 2022-07- Yes [id number] 50mg Take 1 Univers 50 mg 0-17 01-16 tablet by ity of tablet 00:00: 05:59 mouth in [place] 00 :00 the Medical morning Branch for 90 days. Lamotrigine 2022-07- Yes [id number] 50mg Take 1 Univers 50 mg 0-17 01-16 tablet by ity of tablet 00:00: 05:59 mouth in [place] 00 :00 the Medical morning Branch for 90 days. Lamotrigine 2022-07- Yes [id number] 50mg Take 1 Univers 50 mg 0-17 01-16 tablet by ity of tablet 00:00: 05:59 mouth in [place] 00 :00 the Medical morning Branch for 90 days. Lamotrigine 2022-07- Yes [id number] 50mg Take 1 Univers 50 mg 0-17 01-16 tablet by ity of tablet 00:00: 05:59 mouth in [place] 00 :00 the Medical morning Branch for 90 days. Lamotrigine 2022-07- Yes [id number] 50mg Take 1 Univers 50 mg 0-17 01-16 tablet by ity of tablet 00:00: 05:59 mouth in [place] 00 :00 the Medical morning Branch for 90 days. Lamotrigine 3-4- Yes [id number] 50mg Take 1 Univers 50 mg 0-17 01-16 tablet by ity of tablet 00:00: 05:59 mouth in [place] 00 :00 the Medical morning Branch for 90 days. Lamotrigine 3-4- Yes [id number] 50mg Take 1 Univers 50 mg 0-17 01-16 tablet by ity of tablet 00:00: 05:59 mouth in [place] 00 :00 the Medical morning Branch for 90 days. hydrOXYzine 2023-0 Yes [id number] 25mg Take 1 Univers 25 mg 7-25 tablet by ity of tablet 00:00: mouth [place] 00 every 6 Medical (six) Branch hours as needed for Anxiety. hydrOXYzine 2023-0 Yes [id number] 25mg Take 1 Univers 25 mg 7-25 tablet by ity of tablet 00:00: mouth [place] 00 every 6 Medical (six) Branch hours as needed for Anxiety. hydrOXYzine 2023-0 Yes [id number] 25mg Take 1 Univers 25 mg 7-25 tablet by ity of tablet 00:00: mouth [place] 00 every 6 Medical (six) Branch hours as needed for Anxiety. hydrOXYzine 2023-0 Yes [id number] 25mg Take 1 Univers 25 mg 7-25 tablet by ity of tablet 00:00: mouth [place] 00 every 6 Medical (six) Branch hours as needed for Anxiety. hydrOXYzine 2023-0 Yes [id number] 25mg Take 1 Univers 25 mg 7-25 tablet by ity of tablet 00:00: mouth [place] 00 every 6 Medical (six) Branch hours as needed for Anxiety. hydrOXYzine 2023-0 Yes [id number] 25mg Take 1 Univers 25 mg 7-25 tablet by ity of tablet 00:00: mouth [place] 00 every 6 Medical (six) Branch hours as needed for Anxiety. hydrOXYzine 2023-0 Yes [id number] 25mg Take 1 Univers 25 mg 7-25 tablet by ity of tablet 00:00: mouth [place] 00 every 6 Medical (six) Branch hours as needed for Anxiety. hydrOXYzine 2023-0 Yes [id number] 25mg Take 1 Univers 25 mg 7-25 tablet by ity of tablet 00:00: mouth [place] 00 every 6 Medical (six) Branch hours as needed for Anxiety. hydrOXYzine 2023-0 Yes [id number] 25mg Take 1 Univers 25 mg 7-25 tablet by ity of tablet 00:00: mouth [place] 00 every 6 Medical (six) Branch hours as needed for Anxiety. hydrOXYzine 2023-0 Yes [id number] 25mg Take 1 Univers 25 mg 7-25 tablet by ity of tablet 00:00: mouth [place] 00 every 6 Medical (six) Branch hours as needed for Anxiety. hydrOXYzine 2023-0 Yes [id number] 25mg Take 1 Univers 25 mg 7-25 tablet by ity of tablet 00:00: mouth [place] 00 every 6 Medical (six) Branch hours as needed for Anxiety. hydrOXYzine 2023-0 Yes [id number] 25mg Take 1 Univers 25 mg 7-25 tablet by ity of tablet 00:00: mouth [place] 00 every 6 Medical (six) Branch hours as needed for Anxiety. hydrOXYzine 2023-0 Yes [id number] 25mg Take 1 Univers 25 mg 7-25 tablet by ity of tablet 00:00: mouth [place] 00 every 6 Medical (six) Branch hours as needed for Anxiety. hydrOXYzine 2023-0 Yes [id number] 25mg Take 1 Univers 25 mg 7-25 tablet by ity of tablet 00:00: mouth [place] 00 every 6 Medical (six) Branch hours as needed for Anxiety. hydrOXYzine 2023-0 Yes [id number] 25mg Take 1 Univers 25 mg 7-25 tablet by ity of tablet 00:00: mouth [place] 00 every 6 Medical (six) Branch hours as needed for Anxiety. hydrOXYzine 2023-0 Yes [id number] 25mg Take 1 Univers 25 mg 7-25 tablet by ity of tablet 00:00: mouth [place] 00 every 6 Medical (six) Branch hours as needed for Anxiety. hydrOXYzine 2023-0 Yes [id number] 25mg Take 1 Univers 25 mg 7-25 tablet by ity of tablet 00:00: mouth [place] 00 every 6 Medical (six) Branch hours as needed for Anxiety. hydrOXYzine 2023-0 Yes [id number] 25mg Take 1 Univers 25 mg 7-25 tablet by ity of tablet 00:00: mouth [place] 00 every 6 Medical (six) Branch hours as needed for Anxiety. hydrOXYzine 2023-0 Yes [id number] 25mg Take 1 Univers 25 mg 7-25 tablet by ity of tablet 00:00: mouth [place] 00 every 6 Medical (six) Branch hours as needed for Anxiety. hydrOXYzine 2023-0 Yes [id number] 25mg Take 1 Univers 25 mg 7-25 tablet by ity of tablet 00:00: mouth [place] 00 every 6 Medical (six) Branch hours as needed for Anxiety. hydrOXYzine 3-0 Yes [id number] 25mg Take 1 Univers 25 mg 7-25 tablet by ity of tablet 00:00: mouth [place] 00 every 6 Medical (six) Branch hours as needed for Anxiety. hydrOXYzine 3-0 Yes [id number] 25mg Take 1 Univers 25 mg 7-25 tablet by ity of tablet 00:00: mouth [place] 00 every 6 Medical (six) Branch hours as needed for Anxiety. hydrOXYzine 3-0 Yes [id number] 25mg Take 1 Univers 25 mg 7-25 tablet by ity of tablet 00:00: mouth [place] 00 every 6 Medical (six) Branch hours as needed for Anxiety. hydrOXYzine 3-0 Yes [id number] 25mg Take 1 Univers 25 mg 7-25 tablet by ity of tablet 00:00: mouth [place] 00 every 6 Medical (six) Branch hours as needed for Anxiety. hydrOXYzine 2022-0 Yes [id number] 25mg Take 1 Univers 25 mg 7-25 tablet by ity of tablet 00:00: mouth [place] 00 every 6 Medical (six) Branch hours as needed for Anxiety. atomoxetine 2022-0 Yes [id number] 80mg Take 1 Univers 80 mg 7-19 capsule by ity of capsule 00:00: mouth in [place] 00 the Medical morning. Branch ARIPiprazol 2022-0 Yes [id number] 15mg Take 1 Un kayleen e 15 mg 7-19 tablet by ity of tablet 00:00: mouth in [place] 00 the Medical morning. Branch lamoTRIgine 3-0 Yes [id number] 25mg Take 1 Univers 25 mg 7-19 tablet by ity of tablet 00:00: mouth in [place] 00 the Medical morning. Branch naltrexone 2023-0 Yes [id number] 50mg Take 1 Uni vers 50 mg 7-19 tablet by ity of tablet 00:00: mouth in [place] 00 the Medical morning. Branch atomoxetine 3-0 Yes [id number] 80mg Take 1 Univers 80 mg 7-19 capsule by ity of capsule 00:00: mouth in [place] 00 the Medical morning. Branch ARIPiprazol 3-0 Yes [id number] 15mg Take 1 Un kayleen e 15 mg 7-19 tablet by ity of tablet 00:00: mouth in [place] 00 the Medical morning. Branch lamoTRIgine 2022-0 Yes [id number] 25mg Take 1 Univers 25 mg 7-19 tablet by ity of tablet 00:00: mouth in [place] 00 the Medical morning. Branch naltrexone 3-0 Yes [id number] 50mg Take 1 Uni vers 50 mg 7-19 tablet by ity of tablet 00:00: mouth in [place] 00 the Medical morning. Branch atomoxetine 3-0 Yes [id number] 80mg Take 1 Univers 80 mg 7-19 capsule by ity of capsule 00:00: mouth in [place] 00 the Medical morning. Branch ARIPiprazol 2022-0 Yes [id number] 15mg Take 1 Un kayleen e 15 mg 7-19 tablet by ity of tablet 00:00: mouth in [place] 00 the Medical morning. Branch lamoTRIgine 2022-0 Yes [id number] 25mg Take 1 Univers 25 mg 7-19 tablet by ity of tablet 00:00: mouth in [place] the Medical morning. Branch naltrexone 2022-0 Yes [id number] 50mg Take 1 Uni vers 50 mg 7-19 tablet by ity of tablet 00:00: mouth in [place] the Medical morning. Branch atomoxetine 2022-0 Yes [id number] 80mg Take 1 Univers 80 mg 7-19 capsule by ity of capsule 00:00: mouth in [place] the Medical morning. Branch ARIPiprazol 2022-0 Yes [id number] 15mg Take 1 Un kayleen e 15 mg 7-19 tablet by ity of tablet 00:00: mouth in [place] 00 the Medical morning. Branch lamoTRIgine 2022-0 Yes [id number] 25mg Take 1 Univers 25 mg 7-19 tablet by ity of tablet 00:00: mouth in [place] 00 the Medical morning. Branch naltrexone 3-0 Yes [id number] 50mg Take 1 Uni vers 50 mg 7-19 tablet by ity of tablet 00:00: mouth in [place] 00 the Medical morning. Branch atomoxetine 3-0 Yes [id number] 80mg Take 1 Univers 80 mg 7-19 capsule by ity of capsule 00:00: mouth in [place] 00 the Medical morning. Branch ARIPiprazol 3-0 Yes [id number] 15mg Take 1 Un kayleen e 15 mg 7-19 tablet by ity of tablet 00:00: mouth in [place] 00 the Medical morning. Branch lamoTRIgine 2022-0 Yes [id number] 25mg Take 1 Univers 25 mg 7-19 tablet by ity of tablet 00:00: mouth in [place] 00 the Medical morning. Branch naltrexone 3-0 Yes [id number] 50mg Take 1 Uni vers 50 mg 7-19 tablet by ity of tablet 00:00: mouth in [place] 00 the Medical morning. Branch atomoxetine 2022-0 Yes [id number] 80mg Take 1 Univers 80 mg 7-19 capsule by ity of capsule 00:00: mouth in [place] 00 the Medical morning. Branch ARIPiprazol 2022-0 Yes [id number] 15mg Take 1 Un kayleen e 15 mg 7-19 tablet by ity of tablet 00:00: mouth in [place] 00 the Medical morning. Branch lamoTRIgine 2022-0 Yes [id number] 25mg Take 1 Univers 25 mg 7-19 tablet by ity of tablet 00:00: mouth in [place] 00 the Medical morning. Branch naltrexone 2022-0 Yes [id number] 50mg Take 1 Uni vers 50 mg 7-19 tablet by ity of tablet 00:00: mouth in [place] the Medical morning. Branch atomoxetine 2022-0 Yes [id number] 80mg Take 1 Univers 80 mg 7-19 capsule by ity of capsule 00:00: mouth in [place] 00 the Medical morning. Branch ARIPiprazol 2022-0 Yes [id number] 15mg Take 1 Un kayleen e 15 mg 7-19 tablet by ity of tablet 00:00: mouth in [place] 00 the Medical morning. Branch lamoTRIgine 2022-0 Yes [id number] 25mg Take 1 Univers 25 mg 7-19 tablet by ity of tablet 00:00: mouth in [place] 00 the Medical morning. Branch naltrexone 3-0 Yes [id number] 50mg Take 1 Uni vers 50 mg 7-19 tablet by ity of tablet 00:00: mouth in [place] 00 the Medical morning. Branch atomoxetine 3-0 Yes [id number] 80mg Take 1 Univers 80 mg 7-19 capsule by ity of capsule 00:00: mouth in [place] 00 the Medical morning. Branch ARIPiprazol 3-0 Yes [id number] 15mg Take 1 Un kayleen e 15 mg 7-19 tablet by ity of tablet 00:00: mouth in [place] 00 the Medical morning. Branch lamoTRIgine 3-0 Yes [id number] 25mg Take 1 Univers 25 mg 7-19 tablet by ity of tablet 00:00: mouth in [place] the Medical morning. Branch naltrexone 3-0 Yes [id number] 50mg Take 1 Uni vers 50 mg 7-19 tablet by ity of tablet 00:00: mouth in [place] the Medical morning. Branch atomoxetine 2022-0 Yes [id number] 80mg Take 1 Univers 80 mg 7-19 capsule by ity of capsule 00:00: mouth in [place] the Medical morning. Branch ARIPiprazol 2022-0 Yes [id number] 15mg Take 1 Un kayleen e 15 mg 7-19 tablet by ity of tablet 00:00: mouth in [place] the Medical morning. Branch lamoTRIgine 2022-0 Yes [id number] 25mg Take 1 Univers 25 mg 7-19 tablet by ity of tablet 00:00: mouth in [place] the Medical morning. Branch naltrexone 2022-0 Yes [id number] 50mg Take 1 Uni vers 50 mg 7-19 tablet by ity of tablet 00:00: mouth in [place] the Medical morning. Branch atomoxetine 2022-0 Yes [id number] 80mg Take 1 Univers 80 mg 7-19 capsule by ity of capsule 00:00: mouth in [place] the Medical morning. Branch ARIPiprazol 2022-0 Yes [id number] 15mg Take 1 Un kayleen e 15 mg 7-19 tablet by ity of tablet 00:00: mouth in [place] the Medical morning. Branch lamoTRIgine 2022-0 Yes [id number] 25mg Take 1 Univers 25 mg 7-19 tablet by ity of tablet 00:00: mouth in [place] the Medical morning. Branch naltrexone 3-0 Yes [id number] 50mg Take 1 Uni vers 50 mg 7-19 tablet by ity of tablet 00:00: mouth in [place] 00 the Medical morning. Branch atomoxetine 3-0 Yes [id number] 80mg Take 1 Univers 80 mg 7-19 capsule by ity of capsule 00:00: mouth in [place] 00 the Medical morning. Branch ARIPiprazol 3-0 Yes [id number] 15mg Take 1 Un kayleen e 15 mg 7-19 tablet by ity of tablet 00:00: mouth in [place] the Medical morning. Branch lamoTRIgine 2022-0 Yes [id number] 25mg Take 1 Univers 25 mg 7-19 tablet by ity of tablet 00:00: mouth in [place] the Medical morning. Branch naltrexone 2022-0 Yes [id number] 50mg Take 1 Uni vers 50 mg 7-19 tablet by ity of tablet 00:00: mouth in [place] the Medical morning. Branch atomoxetine 2022-0 Yes [id number] 80mg Take 1 Univers 80 mg 7-19 capsule by ity of capsule 00:00: mouth in [place] the Medical morning. Branch ARIPiprazol 2022-0 Yes [id number] 15mg Take 1 Un kayleen e 15 mg 7-19 tablet by ity of tablet 00:00: mouth in [place] the Medical morning. Branch lamoTRIgine 2022-0 Yes [id number] 25mg Take 1 Univers 25 mg 7-19 tablet by ity of tablet 00:00: mouth in [place] the Medical morning. Branch naltrexone 2022-0 Yes [id number] 50mg Take 1 Uni vers 50 mg 7-19 tablet by ity of tablet 00:00: mouth in [place] the Medical morning. Branch atomoxetine 2022-0 Yes [id number] 80mg Take 1 Univers 80 mg 7-19 capsule by ity of capsule 00:00: mouth in [place] the Medical morning. Branch ARIPiprazol 2022-0 Yes [id number] 15mg Take 1 Un kayleen e 15 mg 7-19 tablet by ity of tablet 00:00: mouth in [place] the Medical morning. Branch lamoTRIgine 2022-0 Yes [id number] 25mg Take 1 Univers 25 mg 7-19 tablet by ity of tablet 00:00: mouth in [place] the Medical morning. Branch naltrexone 3-0 Yes [id number] 50mg Take 1 Uni vers 50 mg 7-19 tablet by ity of tablet 00:00: mouth in [place] 00 the Medical morning. Branch atomoxetine 3-0 Yes [id number] 80mg Take 1 Univers 80 mg 7-19 capsule by ity of capsule 00:00: mouth in [place] 00 the Medical morning. Branch ARIPiprazol 3-0 Yes [id number] 15mg Take 1 [facility] kayleen e 15 mg 7-19 tablet by [facility] tablet 00:00: mouth in [place] 00 the Medical morning. Branch lamoTRIgine 2022-0 Yes [id number] 25mg Take 1 [facility] 25 mg 7-19 tablet by [facility] tablet 00:00: mouth in [place] the Medical morning. Branch naltrexone 2022-0 Yes [id number] 50mg Take 1 [facility] vers 50 mg 7-19 tablet by [facility] tablet 00:00: mouth in [place] the Medical morning. Branch atomoxetine 2022-0 Yes [id number] 80mg Take 1 [facility] 80 mg 7-19 capsule by [facility] capsule 00:00: mouth in [place] the Medical morning. Branch ARIPiprazol 2022-0 Yes [id number] 15mg Take 1 [facility] 15 mg 7-19 tablet by [facility] tablet 00:00: mouth in [place] the Medical morning. Branch lamoTRIgine 2022-0 Yes [id number] 25mg Take 1 [facility] 25 mg 7-19 tablet by [facility] tablet 00:00: mouth in [place] the Medical morning. Branch naltrexone 2022-0 Yes [id number] 50mg Take 1 [facility] vers 50 mg 7-19 tablet by [facility] tablet 00:00: mouth in [place] the Medical morning. Branch atomoxetine 2022-0 Yes [id number] 80mg Take 1 [facility] 80 mg 7-19 capsule by [facility] capsule 00:00: mouth in [place] the Medical morning. Branch ARIPiprazol 2022-0 Yes [id number] 15mg Take 1 [facility] 15 mg 7-19 tablet by [facility] tablet 00:00: mouth in [place] the Medical morning. Branch lamoTRIgine 2022-0 Yes [id number] 25mg Take 1 [facility] 25 mg 7-19 tablet by [facility] tablet 00:00: mouth in [place] the Medical morning. Branch naltrexone 3-0 Yes [id number] 50mg Take 1 [facility] vers 50 mg 7-19 tablet by [facility] tablet 00:00: mouth in [place] 00 the Medical morning. Branch atomoxetine 3-0 Yes [id number] 80mg Take 1 [facility] 80 mg 7-19 capsule by [facility] capsule 00:00: mouth in [place] 00 the Medical morning. Branch ARIPiprazol 3-0 Yes [id number] 15mg Take 1 [facility] 15 mg 7-19 tablet by [facility] tablet 00:00: mouth in [place] 00 the Medical morning. Branch lamoTRIgine 3-0 Yes [id number] 25mg Take 1 [facility] 25 mg 7-19 tablet by [facility] tablet 00:00: mouth in [place] the Medical morning. Branch naltrexone 3-0 Yes [id number] 50mg Take 1 [facility] vers 50 mg 7-19 tablet by [facility] tablet 00:00: mouth in [place] the Medical morning. Branch atomoxetine 3-0 Yes [id number] 80mg Take 1 [facility] 80 mg 7-19 capsule by [facility] capsule 00:00: mouth in [place] the Medical morning. Branch ARIPiprazol 3-0 Yes [id number] 15mg Take 1 [facility] 15 mg 7-19 tablet by [facility] tablet 00:00: mouth in [place] the Medical morning. Branch lamoTRIgine 2022-0 Yes [id number] 25mg Take 1 [facility] 25 mg 7-19 tablet by [facility] tablet 00:00: mouth in [place] the Medical morning. Branch naltrexone 3-0 Yes [id number] 50mg Take 1 [facility] vers 50 mg 7-19 tablet by [facility] tablet 00:00: mouth in [place] the Medical morning. Branch atomoxetine 3-0 Yes [id number] 80mg Take 1 [facility] 80 mg 7-19 capsule by [facility] capsule 00:00: mouth in [place] the Medical morning. Branch ARIPiprazol 3-0 Yes [id number] 15mg Take 1 [facility] 15 mg 7-19 tablet by [facility] tablet 00:00: mouth in [place] the Medical morning. Branch lamoTRIgine 3-0 Yes [id number] 25mg Take 1 [facility] 25 mg 7-19 tablet by [facility] tablet 00:00: mouth in [place] the Medical morning. Branch naltrexone 3-0 Yes [id number] 50mg Take 1 [facility] vers 50 mg 7-19 tablet by [facility] tablet 00:00: mouth in [place] the Medical morning. Branch atomoxetine 3-0 Yes [id number] 80mg Take 1 [facility] 80 mg 7-19 capsule by [facility] capsule 00:00: mouth in [place] 00 the Medical morning. Branch ARIPiprazol 3-0 Yes [id number] 15mg Take 1 [facility] 15 mg 7-19 tablet by [facility] tablet 00:00: mouth in [place] 00 the Medical morning. Branch lamoTRIgine 2022-0 Yes [id number] 25mg Take 1 [facility] 25 mg 7-19 tablet by [facility] tablet 00:00: mouth in [place] 00 the Medical morning. Branch naltrexone 2022-0 Yes [id number] 50mg Take 1 [facility] vers 50 mg 7-19 tablet by [facility] tablet 00:00: mouth in [place] 00 the Medical morning. Branch atomoxetine 2022-0 2022- No [id number] 80mg Take 1 [facility] 80 mg 7-19 10-17 capsule by [facility] capsule 00:00: 00:00 mouth in [place] 00 :00 the Medical morning. Branch ARIPiprazol 2022-0 2022- No [id number] 15mg Take 1 [facility] e 15 mg 7-19 10-17 tablet by [facility] tablet 00:00: 00:00 mouth in [place] 00 :00 the Medical morning. Branch lamoTRIgine 2022-0 2022- No [id number] 25mg Take 1 [facility] 25 mg 7-19 10-17 tablet by [facility] tablet 00:00: 00:00 mouth in [place] 00 :00 the Medical morning. Branch naltrexone 2022-0 2022- No [id number] 50mg Take 1 [facility] 50 mg 7-19 10-17 tablet by [facility] tablet 00:00: 00:00 mouth in [place] 00 :00 the Medical morning. Branch atomoxetine 2022-0 2022- No [id number] 80mg Take 1 [facility] 80 mg 7-19 10-17 capsule by [facility] capsule 00:00: 00:00 mouth in [place] 00 :00 the Medical morning. Branch ARIPiprazol 2022-0 2022- No [id number] 15mg Take 1 [facility] n[facility] e 15 mg 7-19 10-17 tablet by [facility] tablet 00:00: 00:00 mouth in [place] 00 :00 the Medical morning. Branch lamoTRIgine 2022-0 2022- No [id number] 25mg Take 1 [facility] 25 mg 7-19 10-17 tablet by [facility] tablet 00:00: 00:00 mouth in [place] 00 :00 the Medical morning. Branch naltrexone 2022-0 2022- No [id number] 50mg Take 1 [facility] 50 mg 7-19 10-17 tablet by [facility] tablet 00:00: 00:00 mouth in [place] 00 :00 the Medical morning. Branch ARIPiprazol 2022-0 Yes [id number] 15mg Take 1 [facility] e 15 mg 5-01 tablet by [facility] tablet 00:00: mouth in [place] 00 the Medical morning. Branch lamoTRIgine 2022-0 Yes [id number] 25mg Take 1 [facility] 25 mg 5-01 tablet by [facility] tablet 00:00: mouth in [place] 00 the Medical morning. Branch naltrexone 2022-0 Yes [id number] 50mg Take 1 [facility] vers 50 mg 5-01 tablet by [facility] tablet 00:00: mouth in [place] 00 the Medical morning. Branch ARIPiprazol 2022-0 Yes [id number] 15mg Take 1 [facility] 15 mg 5-01 tablet by [facility] tablet 00:00: mouth in [place] 00 the Medical morning. Branch lamoTRIgine 2022-0 Yes [id number] 25mg Take 1 [facility] 25 mg 5-01 tablet by [facility] tablet 00:00: mouth in [place] 00 the Medical morning. Branch naltrexone 2022-0 Yes [id number] 50mg Take 1 [facility] vers 50 mg 5-01 tablet by [facility] tablet 00:00: mouth in [place] 00 the Medical morning. Branch ARIPiprazol 2022-0 Yes [id number] 15mg Take 1 [facility] 15 mg 5-01 tablet by [facility] tablet 00:00: mouth in [place] 00 the Medical morning. Branch lamoTRIgine 2022-0 Yes [id number] 25mg Take 1 [facility] 25 mg 5-01 tablet by [facility] tablet 00:00: mouth in [place] 00 the Medical morning. Branch naltrexone 2022-0 Yes [id number] 50mg Take 1 [facility] vers 50 mg 5-01 tablet by [facility] tablet 00:00: mouth in [place] 00 the Medical morning. Branch ARIPiprazol 2022-0 Yes [id number] 15mg Take 1 [facility] e 15 mg 5-01 tablet by [facility] tablet 00:00: mouth in [place] 00 the Medical morning. Branch lamoTRIgine 2022-0 Yes [id number] 25mg Take 1 [facility] 25 mg 5-01 tablet by [facility] tablet 00:00: mouth in [place] 00 the Medical morning. Branch naltrexone 2022-0 Yes [id number] 50mg Take 1 [facility] vers 50 mg 5-01 tablet by [facility] tablet 00:00: mouth in [place] 00 the Medical morning. Branch ARIPiprazol 2022-0 Yes [id number] 15mg Take 1 [facility] 15 mg 5-01 tablet by [facility] tablet 00:00: mouth in [place] 00 the Medical morning. Branch lamoTRIgine 2022-0 Yes [id number] 25mg Take 1 [facility] 25 mg 5-01 tablet by [facility] tablet 00:00: mouth in [place] 00 the Medical morning. Branch naltrexone 2022-0 Yes [id number] 50mg Take 1 [facility] vers 50 mg 5-01 tablet by [facility] tablet 00:00: mouth in [place] 00 the Medical morning. Branch ARIPiprazol 2022-0 Yes [id number] 15mg Take 1 [facility] 15 mg 5-01 tablet by [facility] tablet 00:00: mouth in [place] 00 the Medical morning. Branch lamoTRIgine 2022-0 Yes [id number] 25mg Take 1 [facility] 25 mg 5-01 tablet by [facility] tablet 00:00: mouth in [place] the Medical morning. Branch naltrexone 2022-0 Yes [id number] 50mg Take 1 [facility] 50 mg 5-01 tablet by [facility] tablet 00:00: mouth in [place] 00 the Medical morning. Branch ARIPiprazol 2022-0 Yes [id number] 15mg Take 1 [facility] 15 mg 5-01 tablet by [facility] tablet 00:00: mouth in [place] 00 the Medical morning. Branch lamoTRIgine 2022-0 Yes [id number] 25mg Take 1 [facility] 25 mg 5-01 tablet by [facility] tablet 00:00: mouth in [place] the Medical morning. Branch naltrexone 2022-0 Yes [id number] 50mg Take 1 [facility] vers 50 mg 5-01 tablet by [facility] tablet 00:00: mouth in [place] 00 the Medical morning. Branch ARIPiprazol 2022-0 Yes [id number] 15mg Take 1 [facility] 15 mg 5-01 tablet by [facility] tablet 00:00: mouth in [place] 00 the Medical morning. Branch lamoTRIgine 2022-0 Yes [id number] 25mg Take 1 [facility] 25 mg 5-01 tablet by [facility] tablet 00:00: mouth in [place] 00 the Medical morning. Branch naltrexone 2022-0 Yes [id number] 50mg Take 1 [facility] 50 mg 5-01 tablet by [facility] tablet 00:00: mouth in [place] 00 the Medical morning. Branch ARIPiprazol 2022-0 Yes [id number] 15mg Take 1 [facility] 15 mg 5-01 tablet by [facility] tablet 00:00: mouth in [place] 00 the Medical morning. Branch lamoTRIgine 2022-0 Yes [id number] 25mg Take 1 [facility] 25 mg 5-01 tablet by [facility] tablet 00:00: mouth in [place] 00 the Medical morning. Branch naltrexone 2022-0 Yes [id number] 50mg Take 1 [facility] vers 50 mg 5-01 tablet by [facility] tablet 00:00: mouth in [place] 00 the Medical morning. Branch ARIPiprazol 2022-0 Yes [id number] 15mg Take 1 [facility] 15 mg 5-01 tablet by [facility] tablet 00:00: mouth in [place] 00 the Medical morning. Branch lamoTRIgine 2022-0 Yes [id number] 25mg Take 1 [facility] 25 mg 5-01 tablet by [facility] tablet 00:00: mouth in [place] the Medical morning. Branch naltrexone 2022-0 Yes [id number] 50mg Take 1 [facility] vers 50 mg 5-01 tablet by [facility] tablet 00:00: mouth in [place] the Medical morning. Branch ARIPiprazol 2022-0 Yes [id number] 15mg Take 1 [facility] e 15 mg 5-01 tablet by [facility] tablet 00:00: mouth in [place] the Medical morning. Branch lamoTRIgine 2022-0 Yes [id number] 25mg Take 1 [facility] 25 mg 5-01 tablet by [facility] tablet 00:00: mouth in [place] the Medical morning. Branch naltrexone 2022-0 Yes [id number] 50mg Take 1 [facility] vers 50 mg 5-01 tablet by [facility] tablet 00:00: mouth in [place] 00 the Medical morning. Branch ARIPiprazol 2022-0 Yes [id number] 15mg Take 1 [facility] e 15 mg 5-01 tablet by [facility] tablet 00:00: mouth in [place] 00 the Medical morning. Branch lamoTRIgine 2022-0 Yes [id number] 25mg Take 1 [facility] 25 mg 5-01 tablet by [facility] tablet 00:00: mouth in [place] 00 the Medical morning. Branch naltrexone 2022-0 Yes [id number] 50mg Take 1 [facility] vers 50 mg 5-01 tablet by [facility] tablet 00:00: mouth in [place] 00 the Medical morning. Branch ARIPiprazol 2022-0 Yes [id number] 15mg Take 1 [facility] e 15 mg 5-01 tablet by [facility] tablet 00:00: mouth in [place] 00 the Medical morning. Branch lamoTRIgine 2022-0 Yes [id number] 25mg Take 1 [facility] 25 mg 5-01 tablet by [facility] tablet 00:00: mouth in [place] 00 the Medical morning. Branch naltrexone 2022-0 Yes [id number] 50mg Take 1 [facility] vers 50 mg 5-01 tablet by [facility] tablet 00:00: mouth in [place] 00 the Medical morning. Branch ARIPiprazol 2022-0 Yes [id number] 15mg Take 1 [facility] e 15 mg 5-01 tablet by [facility] tablet 00:00: mouth in [place] 00 the Medical morning. Branch lamoTRIgine 2022-0 Yes [id number] 25mg Take 1 [facility] 25 mg 5-01 tablet by [facility] tablet 00:00: mouth in [place] the Medical morning. Branch naltrexone 2022-0 Yes [id number] 50mg Take 1 [facility] vers 50 mg 5-01 tablet by [facility] tablet 00:00: mouth in [place] the Medical morning. Branch ARIPiprazol 2022-0 Yes [id number] 15mg Take 1 [facility] e 15 mg 5-01 tablet by [facility] tablet 00:00: mouth in [place] 00 the Medical morning. Branch lamoTRIgine 2022-0 Yes [id number] 25mg Take 1 [facility] 25 mg 5-01 tablet by [facility] tablet 00:00: mouth in [place] the Medical morning. Branch naltrexone 2022-0 Yes [id number] 50mg Take 1 [facility] vers 50 mg 5-01 tablet by [facility] tablet 00:00: mouth in [place] 00 the Medical morning. Branch ARIPiprazol 2022-0 Yes [id number] 15mg Take 1 [facility] e 15 mg 5-01 tablet by [facility] tablet 00:00: mouth in [place] 00 the Medical morning. Branch lamoTRIgine 2022-0 Yes [id number] 25mg Take 1 [facility] 25 mg 5-01 tablet by [facility] tablet 00:00: mouth in [place] 00 the Medical morning. Branch naltrexone 2022-0 Yes [id number] 50mg Take 1 [facility] vers 50 mg 5-01 tablet by [facility] tablet 00:00: mouth in [place] 00 the Medical morning. Branch ARIPiprazol 2022-0 Yes [id number] 15mg Take 1 [facility] e 15 mg 5-01 tablet by [facility] tablet 00:00: mouth in [place] 00 the Medical morning. Branch lamoTRIgine 2022-0 Yes [id number] 25mg Take 1 [facility] 25 mg 5-01 tablet by [facility] tablet 00:00: mouth in [place] 00 the Medical morning. Branch naltrexone 2022-0 Yes [id number] 50mg Take 1 [facility] vers 50 mg 5-01 tablet by [facility] tablet 00:00: mouth in [place] 00 the Medical morning. Branch ARIPiprazol 2022-0 Yes [id number] 15mg Take 1 [facility] e 15 mg 5-01 tablet by [facility] tablet 00:00: mouth in [place] 00 the Medical morning. Branch lamoTRIgine 2022-0 Yes [id number] 25mg Take 1 [facility] 25 mg 5-01 tablet by [facility] tablet 00:00: mouth in [place] the Medical morning. Branch naltrexone 2022-0 Yes [id number] 50mg Take 1 [facility] vers 50 mg 5-01 tablet by [facility] tablet 00:00: mouth in [place] the Medical morning. Branch ARIPiprazol 2022-0 Yes [id number] 15mg Take 1 [facility] e 15 mg 5-01 tablet by [facility] tablet 00:00: mouth in [place] 00 the Medical morning. Branch lamoTRIgine 2022-0 Yes [id number] 25mg Take 1 [facility] 25 mg 5-01 tablet by [facility] tablet 00:00: mouth in [place] 00 the Medical morning. Branch naltrexone 2022-0 Yes [id number] 50mg Take 1 [facility] vers 50 mg 5-01 tablet by [facility] tablet 00:00: mouth in [place] 00 the Medical morning. Branch ARIPiprazol 2022-0 Yes [id number] 15mg Take 1 [facility] e 15 mg 5-01 tablet by [facility] tablet 00:00: mouth in [place] 00 the Medical morning. Branch lamoTRIgine 2022-0 Yes [id number] 25mg Take 1 [facility] 25 mg 5-01 tablet by [facility] tablet 00:00: mouth in [place] 00 the Medical morning. Branch naltrexone 2022-0 Yes [id number] 50mg Take 1 [facility] vers 50 mg 5-01 tablet by [facility] tablet 00:00: mouth in [place] 00 the Medical morning. Branch ARIPiprazol 2022-0 Yes [id number] 15mg Take 1 [facility] e 15 mg 5-01 tablet by [facility] tablet 00:00: mouth in [place] 00 the Medical morning. Branch lamoTRIgine 2022-0 Yes [id number] 25mg Take 1 [facility] 25 mg 5-01 tablet by [facility] tablet 00:00: mouth in [place] 00 the Medical morning. Branch naltrexone 2022-0 Yes [id number] 50mg Take 1 [facility] vers 50 mg 5-01 tablet by [facility] tablet 00:00: mouth in [place] 00 the Medical morning. Branch ARIPiprazol 2022-0 Yes [id number] 15mg Take 1 [facility] e 15 mg 5-01 tablet by [facility] tablet 00:00: mouth in [place] 00 the Medical morning. Branch lamoTRIgine 2022-0 Yes [id number] 25mg Take 1 [facility] 25 mg 5-01 tablet by [facility] tablet 00:00: mouth in [place] 00 the Medical morning. Branch naltrexone 2022-0 Yes [id number] 50mg Take 1 [facility] vers 50 mg 5-01 tablet by [facility] tablet 00:00: mouth in [place] 00 the Medical morning. Branch ARIPiprazol 2022-0 Yes [id number] 15mg Take 1 [facility] e 15 mg 5-01 tablet by [facility] tablet 00:00: mouth in [place] 00 the Medical morning. Branch lamoTRIgine 2022-0 Yes [id number] 25mg Take 1 [facility] 25 mg 5-01 tablet by [facility] tablet 00:00: mouth in [place] 00 the Medical morning. Branch naltrexone 2022-0 Yes [id number] 50mg Take 1 [facility] vers 50 mg 5-01 tablet by [facility] tablet 00:00: mouth in [place] 00 the Medical morning. Branch atomoxetine 2022-0 2022- No [id number] 80mg Take 1 [facility] 80 mg 5-01 - capsule by [facility] capsule 00:00: 04:59 mouth in [place] 00 :00 the Medical morning Branch for 90 days. atomoxetine 2022-0 2022- No [id number] 80mg Take 1 [facility] 80 mg 5-01 -31 capsule by [facility] capsule 00:00: 04:59 mouth in [place] 00 :00 the Medical morning Branch for 90 days. atomoxetine 3-0 2023- No [id number] 80mg Take 1 [facility] 80 mg 5-07 09-31 capsule by [facility] capsule 00:00: 04:59 mouth in [place] 00 :00 the Medical morning Branch for 90 days. atomoxetine 2022-0 3- No [id number] 80mg Take 1 [facility] 80 mg 5-07 09-31 capsule by [facility] capsule 00:00: 04:59 mouth in [place] 00 :00 the Medical morning Branch for 90 days. atomoxetine 2022-0 2023- No [id number] 80mg Take 1 [facility] 80 mg 5-07 09-31 capsule by [facility] of capsule 00:00: 04:59 mouth in [place] 00 :00 the Medical morning Branch for 90 days. atomoxetine 2022-0 3- No [id number] 80mg Take 1 [facility] 80 mg 5-07 09-31 capsule by [facility] of capsule 00:00: 04:59 mouth in [place] 00 :00 the [facility] morning Branch for 90 days. atomoxetine 2022-0 3- No [id number] 80mg Take 1 [facility] 80 mg 5-07 09-31 capsule by [facility] of capsule 00:00: 04:59 mouth in [place] 00 :00 the [facility] morning Branch for 90 days. atomoxetine 3-0 3- No [id number] 80mg Take 1 [facility] 80 mg 5-07 09-31 capsule by [facility] of capsule 00:00: 04:59 mouth in [place] 00 :00 the [facility] morning Branch for 90 days. atomoxetine 3-0 3- No [id number] 80mg Take 1 [facility] 80 mg 5-07 09-31 capsule by [facility] of capsule 00:00: 04:59 mouth in [place] 00 :00 the [facility] morning Branch for 90 days. atomoxetine 2023-0 2023- No [id number] 80mg Take 1 [facility] 80 mg 5-01 -31 capsule by [facility] of capsule 00:00: 04:59 mouth in [place] 00 :00 the Medical morning Branch for 90 days. atomoxetine 2023-0 2023- No [id number] 80mg Take 1 [facility] 80 mg 5-01 -31 capsule by [facility] of capsule 00:00: 04:59 mouth in [place] 00 :00 the [facility] morning Branch for 90 days. atomoxetine 2023-0 2023- No [id number] 80mg Take 1 [facility] 80 mg 5-07 09-31 capsule by [facility] of capsule 00:00: 04:59 mouth in [place] 00 :00 the Medical morning Branch for 90 days. atomoxetine 2022-0 3- No [id number] 80mg Take 1 [facility] 80 mg 5-07 09-31 capsule by [facility] of capsule 00:00: 04:59 mouth in [place] 00 :00 the Medical morning Branch for 90 days. atomoxetine 2022-0 3- No [id number] 80mg Take 1 [facility] 80 mg 5-07 09-31 capsule by [facility] of capsule 00:00: 04:59 mouth in [place] 00 :00 the Medical morning Branch for 90 days. atomoxetine 2022-0 3- No [id number] 80mg Take 1 [facility] 80 mg 5-07 09-31 capsule by [facility] of capsule 00:00: 04:59 mouth in [place] 00 :00 the Medical morning Branch for 90 days. atomoxetine 2022-0 2022- No [id number] 80mg Take 1 [facility] 80 mg 5-07 09-31 capsule by [facility] of capsule 00:00: 04:59 mouth in [place] 00 :00 the [facility] morning Branch for 90 days. atomoxetine 2022-0 3- No [id number] 80mg Take 1 [facility] 80 mg 5-07 09- capsule by [facility] of capsule 00:00: 04:59 mouth in [place] 00 :00 the [facility] morning Branch for 90 days. atomoxetine 2022-0 3- No [id number] 80mg Take 1 [facility] 80 mg 5-07 09-31 capsule by [facility] of capsule 00:00: 04:59 mouth in [place] 00 :00 the [facility] morning Branch for 90 days. atomoxetine 2022-0 3- No [id number] 80mg Take 1 [facility] 80 mg 5-01 -31 capsule by [facility] of capsule 00:00: 04:59 mouth in [place] 00 :00 the Medical morning Branch for 90 days. atomoxetine 3-0 2023- No [id number] 80mg Take 1 [facility] 80 mg 5-01 -31 capsule by [facility] of capsule 00:00: 04:59 mouth in [place] 00 :00 the Medical morning Branch for 90 days. atomoxetine 3-0 3- No [id number] 80mg Take 1 [facility] 80 mg 5-01 -31 capsule by [facility] of capsule 00:00: 04:59 mouth in [place] 00 :00 the Medical morning Branch for 90 days. atomoxetine 2022-0 2022- No [id number] 80mg Take 1 [facility] 80 mg 5-07 09- capsule by [facility] of capsule 00:00: 04:59 mouth in [place] 00 :00 the Medical morning Branch for 90 days. atomoxetine 2022-0 3- No [id number] 80mg Take 1 [facility] 80 mg 5-07 09- capsule by [facility] of capsule 00:00: 04:59 mouth in [place] 00 :00 the Medical morning Branch for 90 days. atomoxetine 2022-0 3- No [id number] 80mg Take 1 [facility] 80 mg 5-07 09- capsule by [facility] of capsule 00:00: 00:00 mouth in [place] 00 :00 the Medical morning Branch for 90 days. ARIPiprazol 2022-0 3- No [id number] 15mg Take 1 [facility] nivers e 15 mg 5-07 09-19 tablet by [facility] of tablet 00:00: 00:00 mouth in [place] 00 :00 the Medical morning. Branch lamoTRIgine 2022-0 3- No [id number] 25mg Take 1 [facility] 25 mg 5-07 09- tablet by [facility] of tablet 00:00: 00:00 mouth in [place] 00 :00 the Medical morning. Branch naltrexone 2022-0 2022- No [id number] 50mg Take 1 [facility] kayleen 50 mg -07 09- tablet by [facility] of tablet 00:00: 00:00 mouth in [place] 00 :00 the Medical morning. Branch atomoxetine 2022-0 2022- No [id number] 80mg Take 1 [facility] 80 mg 5-07 09- capsule by [facility] of capsule 00:00: 00:00 mouth in [place] 00 :00 the Medical morning Branch for 90 days. ARIPiprazol 2022-0 2022- No [id number] 15mg Take 1 [facility] nivers e 15 mg 5-07 09-19 tablet by [facility] of tablet 00:00: 00:00 mouth in [place] 00 :00 the Medical morning. Branch lamoTRIgine 2022-0 3- No [id number] 25mg Take 1 [facility] 25 mg 5-07 09-19 tablet by [facility] of tablet 00:00: 00:00 mouth in [place] 00 :00 the Medical morning. Branch naltrexone 2022-2022- No [id number] 50mg Take 1 [facility] kayleen 50 mg -07 09- tablet by [facility] of tablet 00:00: 00:00 mouth in [place] 00 :00 the Medical morning. Branch atomoxetine 2022- No [id number] 80mg Take 1 [facility] 80 mg 5-07 09- capsule by [facility] of capsule 00:00: 00:00 mouth in [place] 00 :00 the Medical morning Branch for 90 days. ARIPiprazol 2022-2022- No [id number] 15mg Take 1 [facility] nivers e 15 mg 5-01-18 tablet by [facility] of tablet 00:00: 00:00 mouth in [place] 00 :00 the Medical morning. Branch lamoTRIgine 2022-2022- No [id number] 25mg Take 1 [facility] 25 mg -01-18 tablet by [facility] of tablet 00:00: 00:00 mouth in [place] 00 :00 the Medical morning. Branch naltrexone 2022-2022- No [id number] 50mg Take 1 [facility] kayleen 50 mg -01-18 tablet by [facility] of tablet 00:00: 00:00 mouth in [place] 00 :00 the Medical morning. Branch atomoxetine 2022-2022- No [id number] 80mg Take 1 [facility] 80 mg -01-18 capsule by [facility] of capsule 00:00: 00:00 mouth in [place] 00 :00 the Medical morning Branch for 90 days. ARIPiprazol 2022-2022- No [id number] 15mg Take 1 [facility] nivers e 15 mg -01-18 tablet by [facility] of tablet 00:00: 00:00 mouth in [place] 00 :00 the Medical morning. Branch lamoTRIgine 2022-2022- No [id number] 25mg Take 1 [facility] 25 mg 5-07 09- tablet by [facility]y of tablet 00:00: 00:00 mouth in [place] 00 :00 the Medical morning. Branch naltrexone 2022-0 2022- No [id number] 50mg Take 1 [facility] kayleen 50 mg 5-07 09- tablet by [facility] of tablet 00:00: 00:00 mouth in [place] 00 :00 the Medical morning. Branch testosteron 2022-0 Yes INJECT 0.3 [facility] e [...] 200 mg/mL 00:00: EVERY 1 [place] injection , Medical SUBCUTANEO Branch US, 49 DAYS. SAFE FOR SUBCUTANEO US USE testosteron 0 Yes INJECT 0.3 [facility] e cypionate 4-27 ML (60MG) ity of 200 mg/mL 00:00: EVERY 1 [place] injection , [facility] SUBCUTANEO Branch US, 49 DAYS. SAFE FOR SUBCUTANEO US USE testosteron 0 Yes INJECT 0.3 [facility] e cypionate 4-27 ML (60MG) ity of 200 mg/mL 00:00: EVERY 1 [place] injection , Medical SUBCUTANEO Branch US, 49 DAYS. SAFE FOR SUBCUTANEO US USE testosteron 0 Yes INJECT 0.3 [facility] e cypionate 4-27 ML (60MG) ity of 200 mg/mL 00:00: EVERY 1 [place] injection , Medical SUBCUTANEO Branch US, 49 DAYS. SAFE [...] DAYS. SAFE FOR SUBCUTANEO US USE testosteron 2023-0 Yes INJECT 0.3 [facility] e cypionate 4-27 [...] mg/mL 00:00: EVERY 1 [place] injection WEEK, [facility] SUBCUTANEO Branch , 49 DAYS. SAFE FOR [...] DAYS. SAFE FOR SUBCUTANEO US USE atomoxetine 2022-0 Yes [id number] 80mg Take 1 [facility] 80 mg 4-18 capsule by [facility] of capsule 00:00: mouth in [place] 00 the Medical morning. Branch atomoxetine 2022-0 Yes [id number] 80mg Take 1 [facility] 80 mg 4-18 capsule by [facility]y of capsule 00:00: mouth in [place] 00 the Medical morning. Branch atomoxetine 2022-0 3- No [id number] 80mg Take 1 [facility] 80 mg 4-18 05-01 capsule by [facility]y of capsule 00:00: 00:00 mouth in [place] 00 :00 the Medical morning. Branch atomoxetine 3-0 3- No [id number] 80mg Take 1 [facility] 80 mg 4-18 05-01 capsule by [facility]y of capsule 00:00: 00:00 mouth in [place] 00 :00 the Medical morning. Branch atomoxetine 3-0 3- No [id number] 80mg Take 1 [facility] 80 mg 4-18 05-01 capsule by [facility]y of capsule 00:00: 00:00 mouth in [place] 00 :00 the Medical morning. Branch atomoxetine 3-0 3- No [id number] 80mg Take 1 [facility] 80 mg 4-18 05-01 capsule by [facility]y of capsule 00:00: 00:00 mouth in [place] 00 :00 the Medical morning. Branch atomoxetine 2022-0 3- No [id number] 80mg Take 1 [facility] 80 mg 4-18 05-01 capsule by [facility]y of capsule 00:00: 00:00 mouth in [place] 00 :00 the Medical morning. Branch atomoxetine 3-0 3- No [id number] 80mg Take 1 [facility] 80 mg 4-18 05-01 capsule by [facility]y of capsule 00:00: 00:00 mouth in [place] 00 :00 the Medical morning. Branch atomoxetine 3-0 3- No [id number] 80mg Take 1 [facility] 80 mg 4-18 05-01 capsule by [facility]y of capsule 00:00: 00:00 mouth in [place] 00 :00 the Medical morning. Branch atomoxetine 3-0 3- No [id number] 80mg Take 1 [facility] 80 mg 4-18 05-01 capsule by [facility] capsule 00:00: 00:00 mouth in [place] 00 :00 the Medical morning. Branch atomoxetine 2023-0 3- No [id number] 80mg Take 1 [facility] 80 mg 4-18 05-01 capsule by [facility] capsule 00:00: 00:00 mouth in [place] 00 :00 the Medical morning. Branch atomoxetine 3-0 3- No [id number] 80mg Take 1 [facility] 80 mg 4-18 05-01 capsule by [facility] capsule 00:00: 00:00 mouth in [place] 00 :00 the Medical morning. Branch atomoxetine 2023-0 3- No [id number] 80mg Take 1 [facility] 80 mg 4-18 - capsule by [facility] capsule 00:00: 00:00 mouth in [place] 00 :00 the Medical morning. Branch ARIPiprazol 2022-0 Yes [id number] 15mg Take 1 [facility] 15 mg 2-20 tablet by [facility] tablet 00:00: mouth in [place] 00 the Medical morning. Branch lamoTRIgine 2022-0 Yes [id number] 25mg Take 1 [facility] 25 mg 2-20 tablet by [facility] tablet 00:00: mouth in [place] 00 the Medical morning. Branch ARIPiprazol 2022-0 Yes [id number] 15mg Take 1 [facility] 15 mg 2-20 tablet by [facility] tablet 00:00: mouth in [place] 00 the Medical morning. Branch lamoTRIgine 2022-0 Yes [id number] 25mg Take 1 [facility] 25 mg 2-20 tablet by [facility] tablet 00:00: mouth in [place] 00 the Medical morning. Branch ARIPiprazol 2022-0 Yes [id number] 15mg Take 1 [facility] 15 mg 2-20 tablet by [facility] tablet 00:00: mouth in [place] 00 the Medical morning. Branch lamoTRIgine 2022-0 Yes [id number] 25mg Take 1 [facility] 25 mg 2-20 tablet by [facility] tablet 00:00: mouth in [place] 00 the Medical morning. Branch ARIPiprazol 2022-0 Yes [id number] 15mg Take 1 [facility] 15 mg 2-20 tablet by [facility] tablet 00:00: mouth in [place] 00 the Medical morning. Branch lamoTRIgine 2022-0 Yes [id number] 25mg Take 1 [facility] 25 mg 2-20 tablet by [facility] tablet 00:00: mouth in [place] 00 the Medical morning. Branch ARIPiprazol 2022-0 Yes [id number] 15mg Take 1 [facility] 15 mg 2-20 tablet by [facility] tablet 00:00: mouth in [place] 00 the Medical morning. Branch lamoTRIgine 2022-0 Yes [id number] 25mg Take 1 [facility] 25 mg 2-20 tablet by [facility] tablet 00:00: mouth in [place] 00 the Medical morning. Branch ARIPiprazol 2022-0 Yes [id number] 15mg Take 1 [facility] 15 mg 2-20 tablet by [facility] tablet 00:00: mouth in [place] 00 the Medical morning. Branch lamoTRIgine 3-0 Yes [id number] 25mg Take 1 [facility] 25 mg 2-20 tablet by [facility] tablet 00:00: mouth in [place] 00 the Medical morning. Branch ARIPiprazol 3-0 Yes [id number] 15mg Take 1 [facility] 15 mg 2-20 tablet by [facility] tablet 00:00: mouth in [place] 00 the Medical morning. Branch lamoTRIgine 3-0 Yes [id number] 25mg Take 1 [facility] 25 mg 2-20 tablet by [facility] tablet 00:00: mouth in [place] 00 the Medical morning. Branch ARIPiprazol 3-0 Yes [id number] 15mg Take 1 [facility] 15 mg 2-20 tablet by [facility] tablet 00:00: mouth in [place] 00 the Medical morning. Branch lamoTRIgine 3-0 Yes [id number] 25mg Take 1 [facility] 25 mg 2-20 tablet by [facility] tablet 00:00: mouth in [place] 00 the Medical morning. Branch ARIPiprazol 3-0 Yes [id number] 15mg Take 1 [facility] 15 mg 2-20 tablet by [facility] tablet 00:00: mouth in [place] 00 the Medical morning. Branch lamoTRIgine 3-0 Yes [id number] 25mg Take 1 [facility] 25 mg 2-20 tablet by [facility] tablet 00:00: mouth in [place] 00 the Medical morning. Branch ARIPiprazol 3-0 Yes [id number] 15mg Take 1 [facility] 15 mg 2-20 tablet by [facility] tablet 00:00: mouth in [place] 00 the Medical morning. Branch lamoTRIgine 3-0 Yes [id number] 25mg Take 1 [facility] 25 mg 2-20 tablet by [facility] tablet 00:00: mouth in [place] 00 the Medical morning. Branch ARIPiprazol 3-0 Yes [id number] 15mg Take 1 [facility] 15 mg 2-20 tablet by [facility] tablet 00:00: mouth in [place] 00 the Medical morning. Branch lamoTRIgine 3-0 Yes [id number] 25mg Take 1 [facility] 25 mg 2-20 tablet by [facility] tablet 00:00: mouth in [place] 00 the Medical morning. Branch ARIPiprazol 2023-0 Yes [id number] 15mg Take 1 [facility] 15 mg 2-20 tablet by [facility] tablet 00:00: mouth in [place] 00 the Medical morning. Branch lamoTRIgine 3-0 Yes [id number] 25mg Take 1 [facility] 25 mg 2-20 tablet by [facility] tablet 00:00: mouth in [place] 00 the Medical morning. Branch ARIPiprazol 3-0 Yes [id number] 15mg Take 1 [facility] 15 mg 2-20 tablet by [facility] tablet 00:00: mouth in [place] 00 the Medical morning. Branch lamoTRIgine 3-0 Yes [id number] 25mg Take 1 [facility] 25 mg 2-20 tablet by [facility] tablet 00:00: mouth in [place] 00 the Medical morning. Branch ARIPiprazol 3-0 Yes [id number] 15mg Take 1 [facility] 15 mg 2-20 tablet by [facility] tablet 00:00: mouth in [place] 00 the Medical morning. Branch lamoTRIgine 3-0 Yes [id number] 25mg Take 1 [facility] 25 mg 2-20 tablet by [facility] tablet 00:00: mouth in [place] 00 the Medical morning. Branch ARIPiprazol 2022-0 Yes [id number] 15mg Take 1 [facility] 15 mg 2-20 tablet by [facility] tablet 00:00: mouth in [place] 00 the Medical morning. Branch lamoTRIgine 2022-0 Yes [id number] 25mg Take 1 [facility] 25 mg 2-20 tablet by [facility] tablet 00:00: mouth in [place] 00 the Medical morning. Branch naltrexone 2022-0 2022- No [id number] 50mg Take 1 [facility] 50 mg 2-20 05-22 tablet by [facility] tablet 00:00: 04:59 mouth in [place] 00 :00 the Medical morning Branch for 90 days. naltrexone 2022-0 2022- No [id number] 50mg Take 1 [facility] 50 mg 2-20 05-22 tablet by [facility] tablet 00:00: 04:59 mouth in [place] 00 :00 the Medical morning Branch for 90 days. naltrexone 2022-0 2022- No [id number] 50mg Take 1 [facility] 50 mg 2-20 05-22 tablet by [facility] tablet 00:00: 04:59 mouth in [place] 00 :00 the Medical morning Branch for 90 days. naltrexone 2022-0 2022- No [id number] 50mg Take 1 [facility] 50 mg 2-20 05-22 tablet by [facility] tablet 00:00: 04:59 mouth in [place] 00 :00 the Medical morning Branch for 90 days. naltrexone 2022-0 2022- No [id number] 50mg Take 1 [facility] 50 mg 2-20 05-22 tablet by [facility] tablet 00:00: 04:59 mouth in [place] 00 :00 the Medical morning Branch for 90 days. naltrexone 2022-0 2022- No [id number] 50mg Take 1 [facility] 50 mg 2-20 05-22 tablet by [facility] tablet 00:00: 04:59 mouth in [place] 00 :00 the Medical morning Branch for 90 days. naltrexone 2022-0 2022- No [id number] 50mg Take 1 [facility] 50 mg 2-20 05-22 tablet by [facility] tablet 00:00: 04:59 mouth in [place] 00 :00 the [facility] morning Branch for 90 days. naltrexone 2022-0 2022- No [id number] 50mg Take 1 [facility] 50 mg 2-20 05-22 tablet by [facility] of tablet 00:00: 04:59 mouth in [place] 00 :00 the [facility] for 90 days. naltrexone 2022-0 2022- No [id number] 50mg Take 1 [facility] 50 mg 2-20 05-22 tablet by [facility] of tablet 00:00: 04:59 mouth in [place] 00 :00 the [facility] for 90 days. naltrexone 2022-0 2022- No [id number] 50mg Take 1 [facility] 50 mg 2-20 05-22 tablet by [facility] of tablet 00:00: 04:59 mouth in [place] 00 :00 the [facility] Branch for 90 days. naltrexone 2022-0 2022- No [id number] 50mg Take 1 [facility] 50 mg 2-20 05-22 tablet by [facility] of tablet 00:00: 04:59 mouth in [place] 00 :00 the [facility] morning Branch for 90 days. naltrexone 202-0 3- No [id number] 50mg Take 1 [facility] 50 mg 2-20 05-22 tablet by [facility] of tablet 00:00: 04:59 mouth in [place] 00 :00 the [facility] morning Branch for 90 days. naltrexone 2022-0 2022- No [id number] 50mg Take 1 [facility] 50 mg 2-20 05-22 tablet by [facility] tablet 00:00: 04:59 mouth in [place] 00 :00 the Medical morning Branch for 90 days. naltrexone 2022-0 2022- No [id number] 50mg Take 1 [facility] 50 mg 2-20 05-22 tablet by [facility] tablet 00:00: 04:59 mouth in [place] 00 :00 the Medical morning Branch for 90 days. naltrexone 2022-0 2022- No [id number] 50mg Take 1 [facility] 50 mg 2-20 05-22 tablet by [facility] tablet 00:00: 04:59 mouth in [place] 00 :00 the Medical morning Branch for 90 days. ARIPiprazol 2022-2022- No [id number] 15mg Take 1 [facility] 15 mg 2-20 05-01 tablet by [facility] tablet 00:00: 00:00 mouth in [place] 00 :00 the Medical morning. Branch lamoTRIgine 2022-2022- No [id number] 25mg Take 1 [facility] 25 mg 2-20 05-01 tablet by [facility] tablet 00:00: 00:00 mouth in [place] 00 :00 the Medical morning. Branch naltrexone 2022-0 2022- No [id number] 50mg Take 1 [facility] 50 mg 2-20 05-01 tablet by [facility] tablet 00:00: 00:00 mouth in [place] 00 :00 the Medical morning Branch for 90 days. ARIPiprazol 2022-2022- No [id number] 15mg Take 1 [facility] 15 mg 2-20 05-01 tablet by [facility] tablet 00:00: 00:00 mouth in [place] 00 :00 the Medical morning. Branch lamoTRIgine 2022-0 2022- No [id number] 25mg Take 1 [facility] 25 mg 2-20 05-01 tablet by [facility] tablet 00:00: 00:00 mouth in [place] 00 :00 the Medical morning. Branch naltrexone 2022-0 2022- No [id number] 50mg Take 1 [facility] 50 mg 2-20 05-01 tablet by [facility] tablet 00:00: 00:00 mouth in [place] 00 :00 the Medical morning Branch for 90 days. ARIPiprazol 2022-2022- No [id number] 15mg Take 1 [facility] e 15 mg 2-20 05-01 tablet by [facility] of tablet 00:00: 00:00 mouth in [place] 00 :00 the Medical morning. Branch lamoTRIgine 2022-2022- No [id number] 25mg Take 1 [facility] 25 mg 2-20 05-01 tablet by [facility] of tablet 00:00: 00:00 mouth in [place] 00 :00 the Medical morning. Branch naltrexone 2022-2022- No [id number] 50mg Take 1 [facility] 50 mg 2-20 05-01 tablet by [facility] of tablet 00:00: 00:00 mouth in [place] 00 :00 the Medical morning Branch for 90 days. ARIPiprazol 2022-0 2022- No [id number] 15mg Take 1 [facility] e 15 mg 2-20 05-01 tablet by [facility] of tablet 00:00: 00:00 mouth in [place] 00 :00 the Medical morning. Branch lamoTRIgine 2022-2022- No [id number] 25mg Take 1 [facility] 25 mg 2-20 05-01 tablet by [facility] of tablet 00:00: 00:00 mouth in [place] 00 :00 the Medical morning. Branch naltrexone 2022-2022- No [id number] 50mg Take 1 [facility] 50 mg 2-20 05-01 tablet by [facility] of tablet 00:00: 00:00 mouth in [place] 00 :00 the Medical morning Branch for 90 days. ARIPiprazol 2022-2022- No [id number] 15mg Take 1 [facility] e 15 mg 2-20 05-01 tablet by [facility] of tablet 00:00: 00:00 mouth in [place] 00 :00 the Medical morning. Branch lamoTRIgine 2022-0 2022- No [id number] 25mg Take 1 [facility] 25 mg 2-20 05-01 tablet by [facility] of tablet 00:00: 00:00 mouth in [place] 00 :00 the Medical morning. Branch naltrexone 2022-0 2022- No [id number] 50mg Take 1 [facility] 50 mg 2-20 05-01 tablet by [facility] of tablet 00:00: 00:00 mouth in [place] 00 :00 the Medical morning Branch for 90 days. ARIPiprazol 2022-0 2022- No [id number] 15mg Take 1 [facility] e 15 mg 2-20 05-01 tablet by [facility] of tablet 00:00: 00:00 mouth in [place] 00 :00 the Medical morning. Branch lamoTRIgine 2022-0 2022- No [id number] 25mg Take 1 [facility] 25 mg 2-20 05-01 tablet by [facility] of tablet 00:00: 00:00 mouth in [place] 00 :00 the Medical morning. Branch naltrexone 2022-0 2022- No [id number] 50mg Take 1 [facility] 50 mg 2-20 05-01 tablet by [facility] of tablet 00:00: 00:00 mouth in [place] 00 :00 the Medical morning Branch for 90 days. ARIPiprazol 2022-0 2022- No [id number] 15mg Take 1 [facility] e 15 mg 2-20 05-01 tablet by [facility] of tablet 00:00: 00:00 mouth in [place] 00 :00 the Medical morning. Branch lamoTRIgine 2022-0 2022- No [id number] 25mg Take 1 [facility] 25 mg 2-20 05-01 tablet by [facility] of tablet 00:00: 00:00 mouth in [place] 00 :00 the Medical morning. Branch naltrexone 2022-2022- No [id number] 50mg Take 1 [facility] 50 mg 2-20 05-01 tablet by [facility] of tablet 00:00: 00:00 mouth in [place] 00 :00 the Medical morning Branch for 90 days. ARIPiprazol 2022-0 2022- No [id number] 15mg Take 1 [facility] e 15 mg 2-20 05-01 tablet by [facility] of tablet 00:00: 00:00 mouth in [place] 00 :00 the Medical morning. Branch lamoTRIgine 2022-0 2022- No [id number] 25mg Take 1 [facility] 25 mg 2-20 05-01 tablet by [facility] of tablet 00:00: 00:00 mouth in [place] 00 :00 the Medical morning. Branch naltrexone 2022-0 2022- No [id number] 50mg Take 1 [facility] 50 mg 2-20 05-01 tablet by [facility] of tablet 00:00: 00:00 mouth in [place] 00 :00 the Medical morning Branch for 90 days. ARIPiprazol 2022-0 2022- No [id number] 15mg Take 1 [facility] e 15 mg 2-20 05-01 tablet by [facility] of tablet 00:00: 00:00 mouth in [place] 00 :00 the Medical morning. Branch lamoTRIgine 2022-0 2022- No [id number] 25mg Take 1 [facility] 25 mg 2-20 05-01 tablet by [facility] of tablet 00:00: 00:00 mouth in [place] 00 :00 the Medical morning. Branch naltrexone 2022-0 2022- No [id number] 50mg Take 1 [facility] 50 mg 2-20 05-01 tablet by [facility] of tablet 00:00: 00:00 mouth in [place] 00 :00 the Medical morning Branch for 90 days. ARIPiprazol 2022-0 2022- No [id number] 15mg Take 1 [facility] e 15 mg 2-20 05-01 tablet by [facility] of tablet 00:00: 00:00 mouth in [place] 00 :00 the Medical morning. Branch lamoTRIgine 2022-0 2022- No [id number] 25mg Take 1 [facility] 25 mg 2-20 05-01 tablet by [facility] of tablet 00:00: 00:00 mouth in [place] 00 :00 the Medical morning. Branch naltrexone 2022-0 2022- No [id number] 50mg Take 1 [facility] 50 mg 2-20 05-01 tablet by [facility] of tablet 00:00: 00:00 mouth in [place] 00 :00 the Medical morning Branch for 90 days. ARIPiprazol 2022-2022- No [id number] 15mg Take 1 [facility] e 15 mg 2-20 05-01 tablet by [facility] of tablet 00:00: 00:00 mouth in [place] 00 :00 the Medical morning. Branch lamoTRIgine 2022-0 2022- No [id number] 25mg Take 1 [facility] 25 mg 2-20 05-01 tablet by [facility] of tablet 00:00: 00:00 mouth in [place] 00 :00 the Medical morning. Branch naltrexone 2022-0 2022- No [id number] 50mg Take 1 [facility] 50 mg 2-20 05-01 tablet by [facility] of tablet 00:00: 00:00 mouth in [place] 00 :00 the Medical morning Branch for 90 days. atomoxetine 2022-0 3- No [id number] 80mg Take 1 [facility] 80 mg 2-20 04-22 capsule by [facility] of capsule 00:00: 04:59 mouth in [place] 00 :00 the Medical morning Branch for 60 days. atomoxetine 2023-0 2022- No [id number] 80mg Take 1 [facility] 80 mg 2-20 04-22 capsule by [facility] of capsule 00:00: 04:59 mouth in [place] 00 :00 the Medical morning Branch for 60 days. atomoxetine 2023-0 2022- No [id number] 80mg Take 1 [facility] 80 mg 2-20 04-22 capsule by [facility] of capsule 00:00: 04:59 mouth in [place] 00 :00 the Medical morning Branch for 60 days. atomoxetine 2022-0 2022- No [id number] 80mg Take 1 [facility] 80 mg 2-20 04-22 capsule by [facility] of capsule 00:00: 04:59 mouth in [place] 00 :00 the Medical morning Branch for 60 days. atomoxetine 2022-0 3- No [id number] 80mg Take 1 [facility] 80 mg 2-20 04-22 capsule by [facility] of capsule 00:00: 04:59 mouth in [place] 00 :00 the Medical morning Branch for 60 days. atomoxetine 2022-0 3- No [id number] 80mg Take 1 [facility] 80 mg 2-20 04-22 capsule by [facility] of capsule 00:00: 04:59 mouth in [place] 00 :00 the Medical morning Branch for 60 days. atomoxetine 2022-2022- No [id number] 80mg Take 1 [facility] 80 mg 2-20 04-22 capsule by [facility] of capsule 00:00: 04:59 mouth in [place] 00 :00 the Medical morning Branch for 60 days. atomoxetine 2022-0 2022- No [id number] 80mg Take 1 [facility] 80 mg 2-20 04-22 capsule by [facility] of capsule 00:00: 04:59 mouth in [place] 00 :00 the Medical morning Branch for 60 days. atomoxetine 2022-0 2022- No [id number] 80mg Take 1 [facility] 80 mg 2-20 04-22 capsule by [facility] of capsule 00:00: 04:59 mouth in [place] 00 :00 the Medical morning Branch for 60 days. atomoxetine 2022-0 3- No [id number] 80mg Take 1 [facility] 80 mg 2-20 04-22 capsule by [facility] of capsule 00:00: 04:59 mouth in [place] 00 :00 the Medical morning Branch for 60 days. atomoxetine 3-0 3- No [id number] 80mg Take 1 [facility] 80 mg 2-20 04-22 capsule by [facility] of capsule 00:00: 04:59 mouth in [place] 00 :00 the Medical morning Branch for 60 days. atomoxetine 2022-0 3- No [id number] 80mg Take 1 [facility] 80 mg 2-20 04-22 capsule by [facility] of capsule 00:00: 04:59 mouth in [place] 00 :00 the Medical morning Branch for 60 days. atomoxetine 3-0 3- No [id number] 80mg Take 1 [facility] 80 mg 2-20 04-18 capsule by [facility] of capsule 00:00: 00:00 mouth in [place] 00 :00 the [facility] morning Branch for 60 days. atomoxetine 2022-0 3- No [id number] 80mg Take 1 [facility] 80 mg 2-20 04-18 capsule by [facility] of capsule 00:00: 00:00 mouth in [place] 00 :00 the [facility] morning Branch for 60 days. atomoxetine 2022-0 3- No [id number] 80mg Take 1 [facility] 80 mg 2-20 04-18 capsule by [facility] of capsule 00:00: 00:00 mouth in [place] 00 :00 the [facility] morning Branch for 60 days. atomoxetine 2022-0 3- No [id number] 80mg Take 1 [facility] 80 mg 2-20 04-18 capsule by [facility] of capsule 00:00: 00:00 mouth in [place] 00 :00 the [facility] for 60 days. atomoxetine 2022-0 3- No [id number] 80mg Take 1 [facility] 80 mg 2-20 04-18 capsule by [facility] of capsule 00:00: 00:00 mouth in [place] 00 :00 the [facility] morning [place] for 60 days. atomoxetine 2022-0 3- No [id number] 80mg Take 1 [facility] 80 mg 2-20 04-18 capsule by [facility] of capsule 00:00: 00:00 mouth in [place] 00 :00 the [facility] Branch for 60 days. atomoxetine 2022-0 3- No [id number] 80mg Take 1 [facility] 80 mg 2-20 04-18 capsule by [facility] of capsule 00:00: 00:00 mouth in [place] 00 :00 the [facility] morning [place] for 60 days. atomoxetine 2023-0 3- No [id number] 80mg Take 1 [facility] 80 mg 2-20 04-18 capsule by [facility] of capsule 00:00: 00:00 mouth in [place] 00 :00 the [facility] morning Branch for 60 days. atomoxetine 2023-0 3- No [id number] 80mg Take 1 [facility] 80 mg 2-20 04-18 capsule by [facility] of capsule 00:00: 00:00 mouth in [place] 00 :00 the [facility] for 60 days. atomoxetine 2023-0 3- No [id number] 80mg Take 1 [facility] 80 mg 2-20 04-18 capsule by [facility] of capsule 00:00: 00:00 mouth in [place] 00 :00 the Medical morning Branch for 60 days. atomoxetine 2023-0 3- No [id number] 80mg Take 1 [facility] 80 mg 2-20 04-18 capsule by [facility] of capsule 00:00: 00:00 mouth in [place] 00 :00 the Medical morning Branch for 60 days. atomoxetine 2023-0 3- No [id number] 80mg Take 1 [facility] 80 mg 2-20 04-18 capsule by [facility] of capsule 00:00: 00:00 mouth in [place] 00 :00 the Medical morning Branch for 60 days. hydrOXYzine 2023-0 Yes [id number] 25mg Take 1 [facility] 25 mg 1-23 tablet by [facility] of tablet 00:00: mouth [place] 00 every 6 Medical (six) Branch hours as needed for Anxiety. hydrOXYzine 2023-0 Yes [id number] 25mg Take 1 [facility] 25 mg 1-23 tablet by [facility] of tablet 00:00: mouth [place] 00 every 6 Medical (six) Branch hours as needed for Anxiety. hydrOXYzine 3-0 Yes [id number] 25mg Take 1 [facility] 25 mg 1-23 tablet by [facility] of tablet 00:00: mouth [place] 00 every 6 Medical (six) Branch hours as needed for Anxiety. hydrOXYzine 2023-0 Yes [id number] 25mg Take 1 [facility] 25 mg 1-23 tablet by [facility] of tablet 00:00: mouth [place] 00 every 6 Medical (six) Branch hours as needed for Anxiety. hydrOXYzine 2023-0 Yes [id number] 25mg Take 1 [facility] 25 mg 1-23 tablet by [facility] of tablet 00:00: mouth [place] 00 every 6 Medical (six) Branch hours as needed for Anxiety. hydrOXYzine 2023-0 Yes [id number] 25mg Take 1 [facility] 25 mg 1-23 tablet by [facility] of tablet 00:00: mouth [place] 00 every 6 Medical (six) Branch hours as needed for Anxiety. hydrOXYzine 2023-0 Yes [id number] 25mg Take 1 [facility] 25 mg 1-23 tablet by [facility] of tablet 00:00: mouth [place] 00 every 6 Medical (six) Branch hours as needed for Anxiety. hydrOXYzine 2023-0 Yes [id number] 25mg Take 1 [facility] 25 mg 1-23 tablet by [facility] of tablet 00:00: mouth [place] 00 every 6 Medical (six) Branch hours as needed for Anxiety. hydrOXYzine 2023-0 Yes [id number] 25mg Take 1 [facility] 25 mg 1-23 tablet by [facility] of tablet 00:00: mouth [place] 00 every 6 Medical (six) Branch hours as needed for Anxiety. hydrOXYzine 2023-0 Yes [id number] 25mg Take 1 [facility] 25 mg 1-23 tablet by [facility] of tablet 00:00: mouth [place] 00 every 6 Medical (six) Branch hours as needed for Anxiety. hydrOXYzine 2023-0 Yes [id number] 25mg Take 1 [facility] 25 mg 1-23 tablet by [facility] of tablet 00:00: mouth [place] 00 every 6 Medical (six) Branch hours as needed for Anxiety. hydrOXYzine 2023-0 Yes [id number] 25mg Take 1 [facility] 25 mg 1-23 tablet by [facility] of tablet 00:00: mouth [place] 00 every 6 Medical (six) Branch hours as needed for Anxiety. hydrOXYzine 2023-0 Yes [id number] 25mg Take 1 [facility] 25 mg 1-23 tablet by [facility] of tablet 00:00: mouth [place] 00 every 6 Medical (six) Branch hours as needed for Anxiety. hydrOXYzine 2023-0 Yes [id number] 25mg Take 1 [facility] 25 mg 1-23 tablet by [facility] of tablet 00:00: mouth [place] 00 every 6 Medical (six) Branch hours as needed for Anxiety. hydrOXYzine 2023-0 Yes [id number] 25mg Take 1 [facility] 25 mg 1-23 tablet by [facility] of tablet 00:00: mouth [place] 00 every 6 Medical (six) Branch hours as needed for Anxiety. hydrOXYzine 2023-0 Yes [id number] 25mg Take 1 [facility] 25 mg 1-23 tablet by [facility] of tablet 00:00: mouth [place] 00 every 6 Medical (six) Branch hours as needed for Anxiety. hydrOXYzine 2023-0 Yes [id number] 25mg Take 1 [facility] 25 mg 1-23 tablet by [facility] of tablet 00:00: mouth [place] 00 every 6 Medical (six) Branch hours as needed for Anxiety. hydrOXYzine 2023-0 Yes [id number] 25mg Take 1 [facility] 25 mg 1-23 tablet by [facility] of tablet 00:00: mouth [place] 00 every 6 Medical (six) Branch hours as needed for Anxiety. hydrOXYzine 2023-0 Yes [id number] 25mg Take 1 [facility] 25 mg 1-23 tablet by [facility] of tablet 00:00: mouth [place] 00 every 6 Medical (six) Branch hours as needed for Anxiety. hydrOXYzine 2023-0 Yes [id number] 25mg Take 1 [facility] 25 mg 1-23 tablet by [facility] of tablet 00:00: mouth [place] 00 every 6 Medical (six) Branch hours as needed for Anxiety. hydrOXYzine 2023-0 Yes [id number] 25mg Take 1 [facility] 25 mg 1-23 tablet by [facility] of tablet 00:00: mouth [place] 00 every 6 Medical (six) Branch hours as needed for Anxiety. hydrOXYzine 2023-0 Yes [id number] 25mg Take 1 [facility] 25 mg 1-23 tablet by [facility] of tablet 00:00: mouth [place] 00 every 6 Medical (six) Branch hours as needed for Anxiety. hydrOXYzine 2023-0 Yes [id number] 25mg Take 1 [facility] 25 mg 1-23 tablet by [facility] of tablet 00:00: mouth [place] 00 every 6 Medical (six) Branch hours as needed for Anxiety. hydrOXYzine 2023-0 Yes [id number] 25mg Take 1 [facility] 25 mg 1-23 tablet by [facility] of tablet 00:00: mouth [place] 00 every 6 Medical (six) Branch hours as needed for Anxiety. hydrOXYzine 2023-0 Yes [id number] 25mg Take 1 [facility] 25 mg 1-23 tablet by [facility] of tablet 00:00: mouth [place] 00 every 6 Medical (six) Branch hours as needed for Anxiety. hydrOXYzine 2023-0 Yes [id number] 25mg Take 1 [facility] 25 mg 1-23 tablet by [facility] of tablet 00:00: mouth [place] 00 every 6 Medical (six) Branch hours as needed for Anxiety. hydrOXYzine 2023-0 Yes [id number] 25mg Take 1 [facility] 25 mg 1-23 tablet by [facility] of tablet 00:00: mouth [place] 00 every 6 Medical (six) Branch hours as needed for Anxiety. hydrOXYzine 2023-0 Yes [id number] 25mg Take 1 [facility] 25 mg 1-23 tablet by [facility] of tablet 00:00: mouth [place] 00 every 6 Medical (six) Branch hours as needed for Anxiety. hydrOXYzine 2023-0 Yes [id number] 25mg Take 1 [facility] 25 mg 1-23 tablet by [facility] of tablet 00:00: mouth [place] 00 every 6 Medical (six) Branch hours as needed for Anxiety. hydrOXYzine 2023-0 Yes [id number] 25mg Take 1 [facility] 25 mg 1-23 tablet by [facility] of tablet 00:00: mouth [place] 00 every 6 Medical (six) Branch hours as needed for Anxiety. hydrOXYzine 2023-0 Yes [id number] 25mg Take 1 [facility] 25 mg 1-23 tablet by [facility] of tablet 00:00: mouth [place] 00 every 6 Medical (six) Branch hours as needed for Anxiety. hydrOXYzine 2023-0 Yes [id number] 25mg Take 1 [facility] 25 mg 1-23 tablet by [facility] of tablet 00:00: mouth [place] 00 every 6 Medical (six) Branch hours as needed for Anxiety. hydrOXYzine 2023-0 Yes [id number] 25mg Take 1 [facility] 25 mg 1-23 tablet by [facility] of tablet 00:00: mouth [place] 00 every 6 Medical (six) Branch hours as needed for Anxiety. hydrOXYzine 2023-0 Yes [id number] 25mg Take 1 [facility] 25 mg 1-23 tablet by [facility] of tablet 00:00: mouth [place] 00 every 6 Medical (six) Branch hours as needed for Anxiety. hydrOXYzine 2023-0 Yes [id number] 25mg Take 1 [facility] 25 mg 1-23 tablet by [facility] of tablet 00:00: mouth [place] 00 every 6 Medical (six) Branch hours as needed for Anxiety. hydrOXYzine 2023-0 Yes [id number] 25mg Take 1 [facility] 25 mg 1-23 tablet by [facility] of tablet 00:00: mouth [place] 00 every 6 Medical (six) Branch hours as needed for Anxiety. hydrOXYzine 2023-0 Yes [id number] 25mg Take 1 [facility] 25 mg 1-23 tablet by [facility] of tablet 00:00: mouth [place] 00 every 6 Medical (six) Branch hours as needed for Anxiety. hydrOXYzine 2023-0 Yes [id number] 25mg Take 1 [facility] 25 mg 1-23 tablet by [facility] of tablet 00:00: mouth [place] 00 every 6 Medical (six) Branch hours as needed for Anxiety. hydrOXYzine 2023-0 Yes [id number] 25mg Take 1 [facility] 25 mg 1-23 tablet by [facility] of tablet 00:00: mouth [place] 00 every 6 Medical (six) Branch hours as needed for Anxiety. hydrOXYzine 2023-0 Yes [id number] 25mg Take 1 [facility] 25 mg 1-23 tablet by [facility]y of tablet 00:00: mouth [place] 00 every 6 Medical (six) Branch hours as needed for Anxiety. hydrOXYzine 2023-0 Yes [id number] 25mg Take 1 [facility] 25 mg 1-23 tablet by it[facility] of tablet 00:00: mouth [place] 00 every 6 Medical (six) Branch hours as needed for Anxiety. hydrOXYzine 2023-0 Yes [id number] 25mg Take 1 [facility] 25 mg 1-23 tablet by ity of tablet 00:00: mouth [place] 00 every 6 Medical (six) Branch hours as needed for Anxiety. hydrOXYzine 2023-0 Yes [id number] 25mg Take 1 [facility] 25 mg 1-23 tablet by ity of tablet 00:00: mouth [place] 00 every 6 Medical (six) Branch hours as needed for Anxiety. hydrOXYzine 3-0 Yes [id number] 25mg Take 1 [facility] 25 mg 1-23 tablet by ity of tablet 00:00: mouth [place] 00 every 6 Medical (six) Branch hours as needed for Anxiety. hydrOXYzine 3-0 2023- No [id number] 25mg Take 1 [facility] 25 mg 1-23 07-22 tablet by ity of tablet 00:00: 00:00 mouth [place] 00 :00 every 6 Medical (six) Branch hours as needed for Anxiety. hydrOXYzine 3-0 2023- No [id number] 25mg Take 1 [facility] 25 mg 1-23 07-22 tablet by ity of tablet 00:00: 00:00 mouth [place] 00 :00 every 6 Medical (six) Branch hours as needed for Anxiety. lamoTRIgine 2023-0 Yes [id number] 25mg Take 1 [facility] 25 mg 1-11 tablet by ity of tablet 00:00: mouth in [place] 00 the Medical morning. Branch lamoTRIgine 2023-0 Yes [id number] 25mg Take 1 [facility] 25 mg 1-11 tablet by it[facility] of tablet 00:00: mouth in [place] 00 the Medical morning. Branch lamoTRIgine 2023-0 Yes [id number] 25mg Take 1 [facility] 25 mg 1-11 tablet by ity of tablet 00:00: mouth in [place] 00 the Medical morning. Branch lamoTRIgine 2023-0 Yes [id number] 25mg Take 1 [facility] 25 mg 1-11 tablet by ity of tablet 00:00: mouth in [place] 00 the Medical morning. Branch lamoTRIgine 2022-0 Yes [id number] 25mg Take 1 [facility] 25 mg 1-11 tablet by ity of tablet 00:00: mouth in [place] 00 the Medical morning. Branch lamoTRIgine 2022-0 2022- No [id number] 25mg Take 1 [facility] 25 mg 1-11 02-20 tablet by ity of tablet 00:00: 00:00 mouth in [place] 00 :00 the Medical morning. Branch lamoTRIgine 2022-0 2022- No [id number] 25mg Take 1 [facility] 25 mg 1-11 02-20 tablet by ity of tablet 00:00: 00:00 mouth in [place] 00 :00 the Medical morning. [place] lamoTRIgine 2022-0 2022- No [id number] 25mg Take 1 [facility] 25 mg 1-11 02-20 tablet by ity of tablet 00:00: 00:00 mouth in [place] 00 :00 the Medical morning. [place] lamoTRIgine 2022-0 2022- No [id number] 25mg Take 1 [facility] 25 mg 1-11 02-20 tablet by ity of tablet 00:00: 00:00 mouth in [place] 00 :00 the Medical morning. [place] lamoTRIgine 2022-0 2022- No [id number] 25mg Take 1 [facility] 25 mg 1-11 02-20 tablet by ity of tablet 00:00: 00:00 mouth in [place] 00 :00 the Medical morning. [place] lamoTRIgine 2022-0 2022- No [id number] 25mg Take 1 [facility] 25 mg 1-11 02-20 tablet by ity of tablet 00:00: 00:00 mouth in [place] 00 :00 the Medical morning. [place] lamoTRIgine 2022-0 2022- No [id number] 25mg Take 1 [facility] 25 mg 1-11 02-20 tablet by ity of tablet 00:00: 00:00 mouth in [place] 00 :00 the Medical morning. [place] ARIPiprazol 2022-0 2022- No [id number] 15mg Take 1 [facility] e 15 mg -04 05-11 tablet by ity of tablet 00:00: 04:59 mouth in [place] 00 :00 the Medical morning Branch for 90 days. ARIPiprazol 2022-0 2022- No [id number] 15mg Take 1 [facility] e 15 mg 1-10 04-11 tablet by ity of tablet 00:00: 04:59 mouth in [place] 00 :00 the Medical morning Branch for 90 days. ARIPiprazol 2022-2022- No [id number] 15mg Take 1 [facility] e 15 mg 1-10 04-11 tablet by ity of tablet 00:00: 04:59 mouth in [place] 00 :00 the Medical morning Branch for 90 days. ARIPiprazol 2022-2022- No [id number] 15mg Take 1 [facility] e 15 mg 1-10 04-11 tablet by ity of tablet 00:00: 04:59 mouth in [place] 00 :00 the Medical morning Branch for 90 days. ARIPiprazol 2022-2022- No [id number] 15mg Take 1 [facility] e 15 mg 1-10 04-11 tablet by ity of tablet 00:00: 04:59 mouth in [place] 00 :00 the Medical morning Branch for 90 days. ARIPiprazol 2022-2022- No [id number] 15mg Take 1 [facility] e 15 mg 1-10 04-11 tablet by ity of tablet 00:00: 04:59 mouth in [place] 00 :00 the Medical morning Branch for 90 days. ARIPiprazol 2022-2022- No [id number] 15mg Take 1 [facility] e 15 mg 1-10 02-20 tablet by ity of tablet 00:00: 00:00 mouth in [place] 00 :00 the Medical morning Branch for 90 days. ARIPiprazol 2022-2022- No [id number] 15mg Take 1 [facility] e 15 mg 1-10 02-20 tablet by ity of tablet 00:00: 00:00 mouth in [place] 00 :00 the Medical morning Branch for 90 days. ARIPiprazol 2022-2022- No [id number] 15mg Take 1 [facility] e 15 mg 1-10 02-20 tablet by ity of tablet 00:00: 00:00 mouth in [place] 00 :00 the Medical morning Branch for 90 days. ARIPiprazol 2022-2022- No [id number] 15mg Take 1 [facility] e 15 mg 1-10 02-20 tablet by ity of tablet 00:00: 00:00 mouth in [place] 00 :00 the Medical morning Branch for 90 days. ARIPiprazol 2022- No [id number] 15mg Take 1 [facility] e 15 mg 1-10 02-20 tablet by ity of tablet 00:00: 00:00 mouth in [place] 00 :00 the Medical [facility] Branch for 90 days. ARIPiprazol 2022- No [id number] 15mg Take 1 [facility] e 15 mg 1-10 02-20 tablet by ity of tablet 00:00: 00:00 mouth in [place] 00 :00 the [facility] Branch for 90 days. ARIPiprazol 2022- No [id number] 15mg Take 1 [facility] e 15 mg 1-10 -20 tablet by ity of tablet 00:00: 00:00 mouth in [place] 00 :00 the [facility] Branch for 90 days. ARIPiprazol 2021-07- No [id number] 300mg [facility] e (ABILIFY 2-15 12-15 ity of MAINTENA) 17:45: 16:48 [place] injection 00 :00 Medical SSRR 300 mg Branch ARIPiprazol 2021-07- No [id number] 300mg [facility] e (ABILIFY 2-15 12-15 ity of MAINTENA) 17:45: 16:48 [place] injection 00 :00 Medical SSRR 300 mg Branch ARIPiprazol 2021-07- No [id number] 300mg [facility] e (ABILIFY 2-15 12-15 ity of MAINTENA) 17:45: 16:48 [place] injection 00 :00 Medical SSRR 300 mg Branch ARIPiprazol 2021-07- No [id number] 300mg [facility] e (ABILIFY 2-15 12-15 ity of MAINTENA) 17:45: 16:48 [place] injection 00 :00 Medical SSRR 300 mg Branch hydrOXYzine 2021-07 Yes [id number] 25mg Take 1 [facility] 25 mg 2-12 tablet by ity of tablet 00:00: mouth [place] 00 every 6 Medical (six) Branch hours as needed for Anxiety. lamoTRIgine 2021-07 Yes [id number] 25mg Take 1 [facility] 25 mg 2-12 tablet by ity of tablet 00:00: mouth in [place] 00 the Medical morning. Branch naltrexone 2021-07 Yes [id number] 50mg Take 1 [facility] vers 50 mg 2-12 tablet by ity of tablet 00:00: mouth in [place] 00 the Medical morning. Branch hydrOXYzine 2021-07 Yes [id number] 25mg Take 1 [facility] 25 mg 2-12 tablet by ity of tablet 00:00: mouth [place] 00 every 6 Medical (six) Branch hours as needed for Anxiety. lamoTRIgine 2021-07 Yes [id number] 25mg Take 1 [facility] 25 mg 2-12 tablet by ity of tablet 00:00: mouth in [place] 00 the Medical morning. Branch naltrexone 2021-07 Yes [id number] 50mg Take 1 [facility] vers 50 mg 2-12 tablet by ity of tablet 00:00: mouth in [place] 00 the Medical morning. Branch hydrOXYzine 2021-07 Yes [id number] 25mg Take 1 [facility] 25 mg 2-12 tablet by ity of tablet 00:00: mouth [place] 00 every 6 Medical (six) Branch hours as needed for Anxiety. lamoTRIgine 2021-07 Yes [id number] 25mg Take 1 [facility] 25 mg 2-12 tablet by ity of tablet 00:00: mouth in [place] 00 the Medical morning. Branch naltrexone 2021-07 Yes [id number] 50mg Take 1 [facility] vers 50 mg 2-12 tablet by ity of tablet 00:00: mouth in [place] 00 the Medical morning. Branch hydrOXYzine 2021-07 Yes [id number] 25mg Take 1 [facility] 25 mg 2-12 tablet by ity of tablet 00:00: mouth [place] 00 every 6 Medical (six) Branch hours as needed for Anxiety. lamoTRIgine 2021-07 Yes [id number] 25mg Take 1 [facility] 25 mg 2-12 tablet by ity of tablet 00:00: mouth in [place] 00 the Medical morning. Branch naltrexone 2021-07 Yes [id number] 50mg Take 1 [facility] vers 50 mg 2-12 tablet by ity of tablet 00:00: mouth in [place] 00 the Medical morning. Branch hydrOXYzine 2021-07 Yes [id number] 25mg Take 1 [facility] 25 mg 2-12 tablet by ity of tablet 00:00: mouth [place] 00 every 6 Medical (six) Branch hours as needed for Anxiety. lamoTRIgine 2021-07 Yes [id number] 25mg Take 1 [facility] 25 mg 2-12 tablet by ity of tablet 00:00: mouth in [place] 00 the Medical morning. Branch naltrexone 2021-07 Yes [id number] 50mg Take 1 [facility] vers 50 mg 2-12 tablet by ity of tablet 00:00: mouth in [place] 00 the Medical morning. Branch hydrOXYzine 2021-07 Yes [id number] 25mg Take 1 [facility] 25 mg 2-12 tablet by ity of tablet 00:00: mouth [place] 00 every 6 Medical (six) Branch hours as needed for Anxiety. lamoTRIgine 2021-07 Yes [id number] 25mg Take 1 [facility] 25 mg 2-12 tablet by ity of tablet 00:00: mouth in [place] 00 the Medical morning. Branch naltrexone 2021-07 Yes [id number] 50mg Take 1 [facility] vers 50 mg 2-12 tablet by ity of tablet 00:00: mouth in [place] 00 the Medical morning. Branch hydrOXYzine 2021-07 Yes [id number] 25mg Take 1 [facility] 25 mg 2-12 tablet by ity of tablet 00:00: mouth [place] 00 every 6 Medical (six) Branch hours as needed for Anxiety. lamoTRIgine 2021-07 Yes [id number] 25mg Take 1 [facility] 25 mg 2-12 tablet by ity of tablet 00:00: mouth in [place] 00 the Medical morning. Branch naltrexone 2021-07 Yes [id number] 50mg Take 1 [facility] vers 50 mg 2-12 tablet by ity of tablet 00:00: mouth in [place] 00 the Medical morning. Branch hydrOXYzine 2021-07 Yes [id number] 25mg Take 1 [facility] 25 mg 2-12 tablet by ity of tablet 00:00: mouth [place] 00 every 6 Medical (six) Branch hours as needed for Anxiety. lamoTRIgine 2021-07 Yes [id number] 25mg Take 1 [facility] 25 mg 2-12 tablet by ity of tablet 00:00: mouth in [place] 00 the Medical morning. Branch naltrexone 2021-07 Yes [id number] 50mg Take 1 [facility] vers 50 mg 2-12 tablet by ity of tablet 00:00: mouth in [place] 00 the Medical morning. Branch hydrOXYzine 2021-07 Yes [id number] 25mg Take 1 [facility] 25 mg 2-12 tablet by ity of tablet 00:00: mouth [place] 00 every 6 Medical (six) Branch hours as needed for Anxiety. lamoTRIgine 2021-07 Yes [id number] 25mg Take 1 [facility] 25 mg 2-12 tablet by ity of tablet 00:00: mouth in [place] 00 the Medical morning. Branch naltrexone 2021-07 Yes [id number] 50mg Take 1 [facility] vers 50 mg 2-12 tablet by ity of tablet 00:00: mouth in [place] 00 the Medical morning. Branch hydrOXYzine 2021-07 Yes [id number] 25mg Take 1 [facility] 25 mg 2-12 tablet by ity of tablet 00:00: mouth [place] 00 every 6 Medical (six) Branch hours as needed for Anxiety. naltrexone 2021-07 Yes [id number] 50mg Take 1 [facility] vers 50 mg 2-12 tablet by ity of tablet 00:00: mouth in [place] 00 the Medical morning. Branch naltrexone 2021-07 Yes [id number] 50mg Take 1 [facility] vers 50 mg 2-12 tablet by ity of tablet 00:00: mouth in [place] 00 the Medical morning. Branch naltrexone 2021-07 Yes [id number] 50mg Take 1 [facility] vers 50 mg 2-12 tablet by ity of tablet 00:00: mouth in [place] 00 the Medical morning. Branch naltrexone 2021-07 Yes [id number] 50mg Take 1 [facility] vers 50 mg 2-12 tablet by ity of tablet 00:00: mouth in [place] 00 the Medical morning. Branch naltrexone 2021-07 Yes [id number] 50mg Take 1 [facility] vers 50 mg 2-12 tablet by ity of tablet 00:00: mouth in [place] 00 the Medical morning. Branch atomoxetine 2021-07- No [id number] 60mg Take 1 [facility] (STRATTERA) 209-12 capsule by i ty of 60 mg 00:00: 04:59 mouth in [place] capsule 00 :00 the Medical morning Branch for 90 days. atomoxetine 2021-07- No [id number] 60mg Take 1 [facility] (STRATTERA) 209-12 capsule by i ty of 60 mg 00:00: 04:59 mouth in [place] capsule 00 :00 the Medical morning Branch for 90 days. atomoxetine 2021-07- No [id number] 60mg Take 1 [facility] (STRATTERA) 209-12 capsule by i ty of 60 mg 00:00: 04:59 mouth in [place] capsule 00 :00 the Medical morning Branch for 90 days. atomoxetine 2021-07- No [id number] 60mg Take 1 [facility] (STRATTERA) 209-12 capsule by i ty of 60 mg 00:00: 04:59 mouth in [place] capsule 00 :00 the Medical morning Branch for 90 days. atomoxetine 2021-07- No [id number] 60mg Take 1 [facility] (STRATTERA) 08-14 capsule by i ty of 60 mg 00:00: 04:59 mouth in [place] capsule 00 :00 the Medical morning Branch for 90 days. atomoxetine 2021-07- No [id number] 60mg Take 1 [facility] (STRATTERA) 08-14 capsule by i ty of 60 mg 00:00: 04:59 mouth in [place] capsule 00 :00 the Medical morning Branch for 90 days. atomoxetine 2021-07- No [id number] 60mg Take 1 [facility] (STRATTERA) 08-14 capsule by i ty of 60 mg 00:00: 04:59 mouth in [place] capsule 00 :00 the Medical morning Branch for 90 days. atomoxetine 2021-07- No [id number] 60mg Take 1 [facility] (STRATTERA) 08-14 capsule by i ty of 60 mg 00:00: 04:59 mouth in [place] capsule 00 :00 the Medical morning Branch for 90 days. atomoxetine 2021-07- No [id number] 60mg Take 1 [facility] (STRATTERA) 08-14 capsule by i ty of 60 mg 00:00: 04:59 mouth in [place] capsule 00 :00 the Medical morning Branch for 90 days. atomoxetine 2021-07- No [id number] 60mg Take 1 [facility] (STRATTERA) 08-14 capsule by i ty of 60 mg 00:00: 04:59 mouth in [place] capsule 00 :00 the Medical morning Branch for 90 days. atomoxetine 2021-073- No [id number] 60mg Take 1 [facility] (STRATTERA) 08-14 capsule by i ty of 60 mg 00:00: 04:59 mouth in [place] capsule 00 :00 the Medical morning Branch for 90 days. atomoxetine 2021-073- No [id number] 60mg Take 1 [facility] (STRATTERA) 08-14 capsule by i ty of 60 mg 00:00: 04:59 mouth in [place] capsule 00 :00 the Medical morning Branch for 90 days. atomoxetine 2021-073- No [id number] 60mg Take 1 [facility] (STRATTERA) 08-14- capsule by i ty of 60 mg 00:00: 04:59 mouth in [place] capsule 00 :00 the Medical morning Branch for 90 days. atomoxetine 2021-07- No [id number] 60mg Take 1 [facility] (STRATTERA) 08-14 capsule by i ty of 60 mg 00:00: 04:59 mouth in [place] capsule 00 :00 the Medical morning Branch for 90 days. atomoxetine 2021-07- No [id number] 60mg Take 1 [facility] (STRATTERA) 08-14-20 capsule by i ty of 60 mg 00:00: 00:00 mouth in [place] capsule 00 :00 the Medical morning Branch for 90 days. naltrexone 2021-07- No [id number] 50mg Take 1 Un [place] 50 mg 08-14-20 tablet by ity of tablet 00:00: 00:00 mouth in [place] 00 :00 the Medical morning. Branch atomoxetine 2021-07- No [id number] 60mg Take 1 [facility] (STRATTERA) 08-14-20 capsule by i ty of 60 mg 00:00: 00:00 mouth in [place] capsule 00 :00 the Medical morning Branch for 90 days. naltrexone 2021-07- No [id number] 50mg Take 1 Un [place] 50 mg 08-14-20 tablet by ity of tablet 00:00: 00:00 mouth in [place] 00 :00 the Medical morning. Branch atomoxetine 2021-07- No [id number] 60mg Take 1 [facility] (STRATTERA) 08-14-20 capsule by i ty of 60 mg 00:00: 00:00 mouth in [place] capsule 00 :00 the Medical morning Branch for 90 days. naltrexone 2021-07- No [id number] 50mg Take 1 Un [place] 50 mg 08-14-20 tablet by ity of tablet 00:00: 00:00 mouth in [place] 00 :00 the Medical morning. Branch atomoxetine 2021-07- No [id number] 60mg Take 1 [facility] (STRATTERA) 2-20 capsule by i ty of 60 mg 00:00: 00:00 mouth in [place] capsule 00 :00 the Medical morning Branch for 90 days. naltrexone 2021-07- No [id number] 50mg Take 1 Un [place] 50 mg 2-06 03-20 tablet by ity of tablet 00:00: 00:00 mouth in [place] 00 :00 the Medical morning. Branch atomoxetine 2021-07- No [id number] 60mg Take 1 [facility] (STRATTERA) 2-12 -20 capsule by i ty of 60 mg 00:00: 00:00 mouth in [place] capsule 00 :00 the Medical morning Branch for 90 days. naltrexone 2021-07- No [id number] 50mg Take 1 Un [place] 50 mg 2-06 03-20 tablet by ity of tablet 00:00: 00:00 mouth in [place] 00 :00 the Medical morning. Branch atomoxetine 2021-07- No [id number] 60mg Take 1 [facility] (STRATTERA) 2-06 03-20 capsule by i ty of 60 mg 00:00: 00:00 mouth in [place] capsule 00 :00 the Medical morning Branch for 90 days. naltrexone 2021-07- No [id number] 50mg Take 1 Un [place] 50 mg 2-20 tablet by ity of tablet 00:00: 00:00 mouth in [place] 00 :00 the Medical morning. Branch atomoxetine 2021-07- No [id number] 60mg Take 1 [facility] (STRATTERA) 2-20 capsule by i ty of 60 mg 00:00: 00:00 mouth in [place] capsule 00 :00 the Medical morning Branch for 90 days. naltrexone 2021-07- No [id number] 50mg Take 1 Un [place] 50 mg 08-14-20 tablet by ity of tablet 00:00: 00:00 mouth in [place] 00 :00 the Medical morning. Branch hydrOXYzine 2021-07- No [id number] 25mg Take 1 [facility] 25 mg 08-14 tablet by ity of tablet 00:00: 00:00 mouth [place] 00 :00 every 6 Medical (six) Branch hours as needed for Anxiety. hydrOXYzine 2021-07- No [id number] 25mg Take 1 [facility] 25 mg 2-07-25 tablet by ity of tablet 00:00: 00:00 mouth [place] 00 :00 every 6 Medical (six) Branch hours as needed for Anxiety. hydrOXYzine 2021-07- No [id number] 25mg Take 1 [facility] 25 mg 2-12 -23 tablet by ity of tablet 00:00: 00:00 mouth [place] 00 :00 every 6 Medical (six) Branch hours as needed for Anxiety. hydrOXYzine 2021-07- No [id number] 25mg Take 1 [facility] 25 mg 2-12 -23 tablet by ity of tablet 00:00: 00:00 mouth [place] 00 :00 every 6 Medical (six) Branch hours as needed for Anxiety. hydrOXYzine 2021-07- No [id number] 25mg Take 1 [facility] 25 mg 2-12 - tablet by ity of tablet 00:00: 00:00 mouth [place] 00 :00 every 6 Medical (six) Branch hours as needed for Anxiety. hydrOXYzine 2021-07- No [id number] 25mg Take 1 [facility] 25 mg 2-07-25 tablet by ity of tablet 00:00: 00:00 mouth [place] 00 :00 every 6 Medical (six) Branch hours as needed for Anxiety. hydrOXYzine 2021-07- No [id number] 25mg Take 1 [facility] 25 mg 2-07-25 tablet by ity of tablet 00:00: 00:00 mouth [place] 00 :00 every 6 Medical (six) Branch hours as needed for Anxiety. lamoTRIgine 2021-2022- No [id number] 25mg Take 1 [facility] 25 mg 2-12 -10 tablet by ity of tablet 00:00: 00:00 mouth in [place] 00 :00 the Medical morning. [place] lamoTRIgine 2021-2022- No [id number] 25mg Take 1 [facility] 25 mg 2-12 -10 tablet by ity of tablet 00:00: 00:00 mouth in [place] 00 :00 the Medical morning. [place] lamoTRIgine 2021-2022- No [id number] 25mg Take 1 [facility] 25 mg 2-12 -10 tablet by ity of tablet 00:00: 00:00 mouth in [place] 00 :00 the Medical morning. [place] lamoTRIgine 2021-2022- No [id number] 25mg Take 1 [facility] 25 mg 2-12 -10 tablet by ity of tablet 00:00: 00:00 mouth in [place] 00 :00 the Medical morning. [place] lamoTRIgine 2021-2022- No [id number] 25mg Take 1 [facility] 25 mg 2-12 01-10 tablet by ity of tablet 00:00: 00:00 mouth in [place] 00 :00 the Medical morning. Branch hydrOXYzine 2021-07- No 25mg 25 mg, [facility] vers (ATARAX) 30 -30 Oral, ity of tablet 25 05:00: 05:14 ONCE, 1 [place] mg 00 :00 dose, On Medical Tue Branch 05/31/22 at 2300, [place] hydrOXYzine 2021-07 Yes [id number] 25mg Take 1 [facility] 25 mg 1-29 tablet by ity of tablet 00:00: mouth [place] 00 every 6 Medical (six) Branch hours as needed for Anxiety. hydrOXYzine 2021-07- No [id number] 25mg Take 1 [facility] 25 mg 1-29 12-12 tablet by ity of tablet 00:00: 00:00 mouth [place] 00 :00 every 6 Medical (six) Branch hours as needed for Anxiety. hydrOXYzine 2021-07- No [id number] 25mg Take 1 [facility] 25 mg 1-29 12-12 tablet by ity of tablet 00:00: 00:00 mouth [place] 00 :00 every 6 Medical (six) Branch hours as needed for Anxiety. hydrOXYzine 2021-07- No [id number] 25mg Take 1 [facility] 25 mg 1-29 12-12 tablet by ity of tablet 00:00: 00:00 mouth [place] 00 :00 every 6 Medical (six) Branch hours as needed for Anxiety. hydrOXYzine 2021-07- No [id number] 25mg Take 1 [facility] 25 mg 1-29 12-12 tablet by ity of tablet 00:00: 00:00 mouth [place] 00 :00 every 6 Medical (six) Branch hours as needed for Anxiety. hydrOXYzine 2021-07- No [id number] 25mg Take 1 [facility] 25 mg 1-29 12-12 tablet by ity of tablet 00:00: 00:00 mouth [place] 00 :00 every 6 Medical (six) Branch hours as needed for Anxiety. ARIPiprazol 2021-07- No [id number] 300mg [facility] e (ABILIFY -17 -17 ity of MAINTENA) 17:00: 16:17 [place] injection 00 :00 Medical SSRR 300 mg Branch ARIPiprazol 2021-07- No [id number] 300mg [facility] e (ABILIFY 1-17 11-17 ity of MAINTENA) 17:00: 16:17 [place] injection 00 :00 Medical SSRR 300 mg Branch ARIPiprazol 2021-07- No [id number] 300mg [facility] e (ABILIFY -17 11-17 ity of MAINTENA) 17:00: 16:17 [place] injection 00 :00 Medical SSRR 300 mg Branch ARIPiprazol 2021-07- No [id number] 300mg [facility] e (ABILIFY -17 11-17 ity of MAINTENA) 17:00: 16:17 [place] injection 00 :00 Medical SSRR 300 mg Branch ARIPiprazol 2021-07- No [id number] 300mg [facility] e (ABILIFY 17 11-17 ity of MAINTENA) 17:00: 16:17 [place] injection 00 :00 Medical SSRR 300 mg Branch [facility] 2021-07 Yes [facility] MAINTENA 1-15 ity of 300 mg sers 00:00: [place] [facility] Branch [facility] 2021-07 Yes [facility] MAINTENA 1-15 ity of 300 mg sers 00:00: Medical Branch Y 2021-07 Yes [facility] MAINTENA 1-15 ity of 300 mg sers 00:00: [place] [facility] Branch [facility]07 Yes [facility] MAINTENA 1-15 ity of 300 mg sers 00:00: Medical Branch Y 2021-07 Yes [facility] MAINTENA 1-15 ity of 300 mg sers 00:00: Medical [place] [facility] 2021-07 Yes [facility] MAINTENA 1-15 ity of 300 mg sers 00:00: [place] [facility] Branch [facility] 2021-07 Yes [facility] MAINTENA 1-15 ity of 300 mg sers 00:00: Medical [place] [facility] 2021-07 Yes [facility] MAINTENA 1-15 ity of 300 mg sers 00:00: Medical [place] [facility] 2021-07 Yes [facility] MAINTENA 1-15 ity of 300 mg sers 00:00: [place] [facility] 2021-2022- No Univers MAINTENA -15 07-12 ity of 300 mg sers 00:00: 00:00 [place] 00 :00 Medical Branch ABILIFY 2021-2022- No [facility] MAINTENA -15 07-12 ity of 300 mg sers 00:00: 00:00 [place] 00 :00 Medical Branch ABILIFY 2021-2022- No [facility] MAINTENA 07-17 ity of 300 mg sers 00:00: 00:00 [place] 00 :00 Medical Branch ABILIFY 2021-2022- No [facility] MAINTENA 07-17 ity of 300 mg sers 00:00: 00:00 [place] 00 :00 Medical Branch ABILIFY 2021-2022- No [facility] MAINTENA 15 07-12 ity of 300 mg sers 00:00: 00:00 [place] 00 :00 Medical Branch ABILIFY 2021-2022- No [facility] MAINTENA 07-17 ity of 300 mg sers 00:00: 00:00 [place] 00 :00 Medical Branch atomoxetine 2021-07 Yes [id number] 40mg Take 1 [facility] 40 mg 0-31 capsule by ity of capsule 00:00: mouth in [place] 00 the Medical morning. Branch lamoTRIgine 2021-07 Yes [id number] 25mg Take 1 [facility] 25 mg 0-31 tablet by ity of tablet 00:00: mouth in [place] 00 the Medical morning. Branch atomoxetine 2021-07 Yes [id number] 40mg Take 1 [facility] 40 mg 0-31 capsule by ity of capsule 00:00: mouth in [place] 00 the Medical morning. Branch lamoTRIgine 2021-07 Yes [id number] 25mg Take 1 [facility] 25 mg 0-31 tablet by ity of tablet 00:00: mouth in [place] 00 the Medical morning. Branch atomoxetine 2021-07 Yes [id number] 40mg Take 1 [facility] 40 mg 0-31 capsule by ity of capsule 00:00: mouth in [place] 00 the Medical morning. Branch lamoTRIgine 2021-07 Yes [id number] 25mg Take 1 [facility] 25 mg 0-31 tablet by ity of tablet 00:00: mouth in [place] 00 the Medical morning. Branch atomoxetine 2022-1 Yes [id number] 40mg Take 1 [facility] 40 mg 0-31 capsule by ity of capsule 00:00: mouth in [place] 00 the Medical morning. Branch lamoTRIgine 2021-07 Yes [id number] 25mg Take 1 [facility] 25 mg 0-31 tablet by ity of tablet 00:00: mouth in [place] the Medical morning. Branch atomoxetine 2021-07 Yes [id number] 40mg Take 1 [facility] 40 mg 0-31 capsule by ity of capsule 00:00: mouth in [place] the Medical morning. Branch lamoTRIgine 2021-07 Yes [id number] 25mg Take 1 [facility] 25 mg 0-31 tablet by ity of tablet 00:00: mouth in [place] 00 the Medical morning. Branch atomoxetine 2021-07 Yes [id number] 40mg Take 1 [facility] 40 mg 0-31 capsule by ity of capsule 00:00: mouth in [place] 00 the Medical morning. Branch lamoTRIgine 2021-07 Yes [id number] 25mg Take 1 [facility] 25 mg 0-31 tablet by ity of tablet 00:00: mouth in [place] the Medical morning. Branch atomoxetine 2021-07 Yes [id number] 40mg Take 1 [facility] 40 mg 0-31 capsule by ity of capsule 00:00: mouth in [place] the Medical morning. Branch lamoTRIgine 2021-07 Yes [id number] 25mg Take 1 [facility] 25 mg 0-31 tablet by ity of tablet 00:00: mouth in [place] the Medical morning. Branch atomoxetine 2021-07 Yes [id number] 40mg Take 1 [facility] 40 mg 0-31 capsule by ity of capsule 00:00: mouth in [place] the Medical morning. Branch lamoTRIgine 2021-07 Yes [id number] 25mg Take 1 [facility] 25 mg 0-31 tablet by ity of tablet 00:00: mouth in [place] 00 the Medical morning. Branch atomoxetine 2021-07 Yes [id number] 40mg Take 1 [facility] 40 mg 0-31 capsule by ity of capsule 00:00: mouth in [place] 00 the Medical morning. Branch lamoTRIgine 2021-07 Yes [id number] 25mg Take 1 [facility] 25 mg 0-31 tablet by [facility] of tablet 00:00: mouth in [place] 00 the Medical morning. Branch naltrexone 2021-073- No [id number] 50mg Take 1 [facility] 50 mg 0-31 01-30 tablet by ity of tablet 00:00: 05:59 mouth in [place] 00 :00 the Medical morning Branch for 90 days. naltrexone 2021-07- No [id number] 50mg Take 1 [facility] 50 mg 0-31 01-30 tablet by ity of tablet 00:00: 05:59 mouth in [place] 00 :00 the Medical morning Branch for 90 days. naltrexone 2021-07- No [id number] 50mg Take 1 [facility] 50 mg 0-31 01-30 tablet by ity of tablet 00:00: 05:59 mouth in [place] 00 :00 the Medical morning Branch for 90 days. naltrexone 2021-07- No [id number] 50mg Take 1 [facility] 50 mg 0-31 01-30 tablet by ity of tablet 00:00: 05:59 mouth in [place] 00 :00 the Medical morning Branch for 90 days. naltrexone 2021-07- No [id number] 50mg Take 1 [facility] 50 mg 0-31 01-30 tablet by ity of tablet 00:00: 05:59 mouth in [place] 00 :00 the [facility] morning Branch for 90 days. naltrexone 2021-07- No [id number] 50mg Take 1 [facility] 50 mg 0-31 01-30 tablet by ity of tablet 00:00: 05:59 mouth in [place] 00 :00 the [facility] morning Branch for 90 days. naltrexone 2021-07- No [id number] 50mg Take 1 [facility] 50 mg 0-31 01-30 tablet by ity of tablet 00:00: 05:59 mouth in [place] 00 :00 the Medical morning Branch for 90 days. naltrexone 2021-07- No [id number] 50mg Take 1 [facility] 50 mg 0-31 01-30 tablet by ity of tablet 00:00: 05:59 mouth in [place] 00 :00 the [facility] morning Branch for 90 days. naltrexone 2021-07- No [id number] 50mg Take 1 [facility] 50 mg 0-31 01-30 tablet by ity of tablet 00:00: 05:59 mouth in [place] 00 :00 the [facility] morning Branch for 90 days. naltrexone 2021-07- No [id number] 50mg Take 1 [facility] 50 mg 0-31 12-12 tablet by ity of tablet 00:00: 00:00 mouth in [place] 00 :00 the [facility] morning Branch for 90 days. atomoxetine 2021-07- No [id number] 40mg Take 1 [facility] 40 mg 0-31 12-12 capsule by ity of capsule 00:00: 00:00 mouth in [place] 00 :00 the Medical morning. Branch lamoTRIgine 2021-07- No [id number] 25mg Take 1 [facility] 25 mg 0-31 12-12 tablet by ity of tablet 00:00: 00:00 mouth in [place] 00 :00 the Medical morning. Branch naltrexone 2021-2021- No [id number] 50mg Take 1 [facility] 50 mg 0-31 12-12 tablet by ity of tablet 00:00: 00:00 mouth in [place] 00 :00 the Medical morning Branch for 90 days. atomoxetine 2021-07- No [id number] 40mg Take 1 [facility] 40 mg 0-31 12-12 capsule by ity of capsule 00:00: 00:00 mouth in [place] 00 :00 the Medical morning. Branch lamoTRIgine 2021-07- No [id number] 25mg Take 1 [facility] 25 mg 0-31 12-12 tablet by ity of tablet 00:00: 00:00 mouth in [place] 00 :00 the Medical morning. Branch naltrexone 2021-07- No [id number] 50mg Take 1 [facility] 50 mg 0-31 12-12 tablet by ity of tablet 00:00: 00:00 mouth in [place] 00 :00 the Medical morning Branch for 90 days. atomoxetine 2021-07- No [id number] 40mg Take 1 [facility] 40 mg 0-31 12-12 capsule by ity of capsule 00:00: 00:00 mouth in [place] 00 :00 the Medical morning. Branch lamoTRIgine 2021-07- No [id number] 25mg Take 1 [facility] 25 mg 0-31 12-12 tablet by ity of tablet 00:00: 00:00 mouth in [place] 00 :00 the Medical morning. Branch naltrexone 2021-07- No [id number] 50mg Take 1 [facility] 50 mg 0-31 12-12 tablet by ity of tablet 00:00: 00:00 mouth in [place] 00 :00 the Medical morning Branch for 90 days. atomoxetine 2021-07- No [id number] 40mg Take 1 [facility] 40 mg 0-31 12-12 capsule by ity of capsule 00:00: 00:00 mouth in [place] 00 :00 the Medical morning. Branch lamoTRIgine 2021-07- No [id number] 25mg Take 1 [facility] 25 mg 0-31 12-12 tablet by ity of tablet 00:00: 00:00 mouth in [place] 00 :00 the Medical morning. Branch naltrexone 2021-072- No [id number] 50mg Take 1 [facility] 50 mg 0-31 12-12 tablet by ity of tablet 00:00: 00:00 mouth in [place] 00 :00 the Medical morning Branch for 90 days. atomoxetine 2021-07- No [id number] 40mg Take 1 [facility] 40 mg 0-31 12-12 capsule by ity of capsule 00:00: 00:00 mouth in [place] 00 :00 the Medical morning. Branch lamoTRIgine 2021-07- No [id number] 25mg Take 1 [facility] 25 mg 0-31 12-12 tablet by ity of tablet 00:00: 00:00 mouth in [place] 00 :00 the Medical morning. Branch ARIPiprazol 2021-07- No [id number] 300mg [facility] e (ABILIFY 0-20 10-20 ity of MAINTENA) 15:15: 15:46 [place] injection 00 :00 Medical SSRR 300 mg Branch ARIPiprazol 2021-07- No [id number] 300mg [facility] e (ABILIFY 0-20 10-20 ity of MAINTENA) 15:15: 15:46 [place] injection 00 :00 Medical SSRR 300 mg Branch ARIPiprazol 2021-07- No [id number] 300mg [facility] e (ABILIFY 0-20 10-20 ity of MAINTENA) 15:15: 15:46 [place] injection 00 :00 Medical SSRR 300 mg Branch ARIPiprazol 2021-07- No [id number] 300mg [facility] e (ABILIFY 0-20 10-20 ity of MAINTENA) 15:15: 15:46 [place] injection 00 :00 Medical SSRR 300 mg Branch ARIPiprazol 2021-07- No [id number] 300mg [facility] e (ABILIFY 0-20 10-20 ity of MAINTENA) 15:15: 15:46 [place] injection 00 :00 Medical SSRR 300 mg Branch ARIPiprazol 2021-2021- No [id number] 300mg [facility] e (ABILIFY 0-20 10-20 ity of MAINTENA) 15:15: 15:46 [place] injection 00 :00 Medical SSRR 300 mg Branch ARIPiprazol 2021-2- No [id number] 300mg [facility] e (ABILIFY 0-19 10-20 ity of MAINTENA) 15:45: 03:44 [place] injection 00 :00 Medical SSRR 300 mg Branch lamoTRIgine 2021- Yes 25mg Take 1 [facility] ers 25 mg 0-18 tablet by ity of tablet 00:00: mouth in [place] 00 the Medical morning. Branch lamoTRIgine 2021- Yes 25mg Take 1 [facility] ers 25 mg 0-18 tablet by ity of tablet 00:00: mouth in [place] the Medical morning. Branch lamoTRIgine 2021-1 Yes 25mg Take 1 [facility] ers 25 mg 0-18 tablet by ity of tablet 00:00: mouth in [place] the Medical morning. Branch lamoTRIgine 2021-1 Yes 25mg Take 1 [facility] ers 25 mg 0-18 tablet by ity of tablet 00:00: mouth in [place] the Medical morning. Branch lamoTRIgine 2- Yes 25mg Take 1 [facility] ers 25 mg 0-18 tablet by ity of tablet 00:00: mouth in [place] the Medical morning. Branch lamoTRIgine 2-1 Yes 25mg Take 1 [facility] ers 25 mg 0-18 tablet by ity of tablet 00:00: mouth in [place] the Medical morning. Branch lamoTRIgine 2-1 Yes [...] [place] 00 the Medical morning. Branch lamoTRIgine 2021- Yes 25mg Take 1 [facility] ers 25 mg 0-18 tablet by ity of tablet 00:00: mouth in [place] 00 the Medical morning. Branch lamoTRIgine 2021- Yes 25mg Take 1 [facility] ers 25 mg 0-18 tablet by ity of tablet 00:00: mouth in [place] 00 the Medical morning. Branch lamoTRIgine 2021-2- No [...] the Medical morning. Branch atomoxetine 2021-07 Yes [id number] 40mg Take 1 [facility] 40 mg 0-13 capsule by ity of capsule 00:00: mouth in [place] 00 the Medical morning. Branch atomoxetine 2021- Yes [id number] 40mg Take 1 [facility] 40 mg 0-13 capsule by ity of capsule 00:00: mouth in [place] 00 the Medical morning. Branch atomoxetine 2021- Yes [id number] 40mg Take 1 [facility] 40 mg 0-13 capsule by ity of capsule 00:00: mouth in [place] 00 the Medical morning. Branch atomoxetine 2021- Yes [id number] 40mg Take 1 [facility] 40 mg 0-13 capsule by ity of capsule 00:00: mouth in [place] 00 the Medical morning. Branch atomoxetine 2021- Yes [id number] 40mg Take 1 [facility] 40 mg 0-13 capsule by ity of capsule 00:00: mouth in [place] 00 the Medical morning. Branch atomoxetine 2021-07 Yes [id number] 40mg Take 1 [facility] 40 mg 0-13 capsule by ity of capsule 00:00: mouth in [place] the Medical morning. Branch atomoxetine 2021-07 Yes [id number] 40mg Take 1 [facility] 40 mg 0-13 capsule by ity of capsule 00:00: mouth in [place] the Medical morning. Branch atomoxetine 2021-07 Yes [id number] 40mg Take 1 [facility] 40 mg 0-13 capsule by ity of capsule 00:00: mouth in [place] the Medical morning. Branch atomoxetine 2021-07 Yes [id number] 40mg Take 1 [facility] 40 mg 0-13 capsule by ity of capsule 00:00: mouth in [place] the Medical morning. Branch atomoxetine 2021-07 Yes [id number] 40mg Take 1 [facility] 40 mg 0-13 capsule by ity of capsule 00:00: mouth in [place] the Medical morning. Branch atomoxetine 2021-07 Yes [id number] 40mg Take 1 [facility] 40 mg 0-13 capsule by ity of capsule 00:00: mouth in [place] the Medical morning. Branch atomoxetine 2021-07 Yes [id number] 40mg Take 1 [facility] 40 mg 0-13 capsule by ity of capsule 00:00: mouth in [place] the Medical morning. Branch atomoxetine 2021-07 Yes [id number] 40mg Take 1 [facility] 40 mg 0-13 capsule by ity of capsule 00:00: mouth in [place] the Medical morning. Branch atomoxetine 2021-07 Yes [id number] 40mg Take 1 [facility] 40 mg 0-13 capsule by ity of capsule 00:00: mouth in [place] the Medical morning. Branch atomoxetine 2021-07 Yes [id number] 40mg Take 1 [facility] 40 mg 0-13 capsule by ity of capsule 00:00: mouth in [place] the Medical morning. Branch atomoxetine 2021-07 Yes [id number] 40mg Take 1 [facility] 40 mg 0-13 capsule by ity of capsule 00:00: mouth in [place] the Medical morning. Branch atomoxetine 2021-07 Yes [id number] 40mg Take 1 [facility] 40 mg 0-13 capsule by ity of capsule 00:00: mouth in [place] the Medical morning. Branch atomoxetine 2021- Yes [id number] 40mg Take 1 [facility] 40 mg 0-13 capsule by ity of capsule 00:00: mouth in [place] 00 the Medical morning. Branch atomoxetine 2021-07- No [id number] 40mg Take 1 [facility] 40 mg 0-13 10-31 capsule by ity of capsule 00:00: 00:00 mouth in [place] 00 :00 the Medical morning. Branch atomoxetine 2021-07- No [id number] 40mg Take 1 [facility] 40 mg 0-13 10-31 capsule by ity of capsule 00:00: 00:00 mouth in [place] 00 :00 the Medical morning. Branch atomoxetine 2021-07- No [id number] 40mg Take 1 [facility] 40 mg 0-13 10-31 capsule by ity of capsule 00:00: 00:00 mouth in [place] 00 :00 the Medical morning. Branch atomoxetine 2021-07- No [id number] 40mg Take 1 [facility] 40 mg 0-13 10-31 capsule by ity of capsule 00:00: 00:00 mouth in [place] 00 :00 the Medical morning. [place] NaCl 0.9% 2021-07 No 1000mL at 999 [...] [place] 00 the Medical morning. Branch lamoTRIgine 2021- Yes 25mg Take 1 [facility] ers 25 mg 0-07 tablet by ity of tablet 00:00: mouth in [place] 00 the Medical morning. Branch atomoxetine 2021-07 Yes 40mg Take 1 [facility] ers 40 mg 0-07 capsule by ity of capsule 00:00: mouth in [place] 00 the Medical morning. Branch lamoTRIgine 2021- Yes 25mg Take 1 [facility] ers 25 mg 0-07 tablet by ity of tablet 00:00: mouth in [place] the Medical morning. Branch atomoxetine 2021- Yes 40mg Take 1 [facility] ers 40 mg 0-07 capsule by ity of capsule 00:00: mouth in [place] the morning. Branch lamoTRIgine 2021- Yes 25mg Take 1 [facility] ers 25 mg 0-07 tablet by ity of tablet 00:00: mouth in [place] the morning. Branch lamoTRIgine 2021- Yes 25mg Take 1 [facility] ers 25 mg 0-07 tablet by ity of tablet 00:00: mouth in [place] the Medical morning. Branch lamoTRIgine 2021- Yes 25mg Take 1 [facility] ers 25 mg 0-07 tablet by ity of tablet 00:00: mouth in [place] the morning. Branch lamoTRIgine 2021- Yes 25mg Take 1 [facility] ers 25 mg 0-07 tablet by ity of tablet 00:00: mouth in [place] the morning. Branch lamoTRIgine 2021- Yes 25mg Take 1 [facility] ers 25 mg 0-07 tablet by ity of tablet 00:00: mouth in [place] the morning. Branch lamoTRIgine 2021- Yes 25mg Take 1 [facility] ers 25 mg 0-07 tablet by ity of tablet 00:00: mouth in [place] the morning. Branch lamoTRIgine 2021- Yes 25mg Take 1 [facility] ers 25 mg 0-07 tablet by ity of tablet 00:00: mouth in [place] the morning. Branch polyethylen 2021-07- No [id number] 17g Take 1 [facility] e glycol 0-07 11-07 Packet by ity o f 3350 17 00:00: 05:59 mouth in [place] gram powder 00 :00 the morning Branch for 30 days. polyethylen 2021-07- No [id number] 17g Take 1 [facility] e glycol 0-07 11-07 Packet by ity o f 3350 17 00:00: 05:59 mouth in [place] gram powder 00 :00 the morning Branch for 30 days. polyethylen 2021-07- No [id number] 17g Take 1 [facility] e glycol 0-07 11-07 Packet by ity o f 3350 17 00:00: 05:59 mouth in [place] gram powder 00 :00 the morning Branch for 30 days. polyethylen 2021-07- No [id number] 17g Take 1 [facility] e glycol 0-07 11-07 Packet by ity o f 3350 17 00:00: 05:59 mouth in [place] gram powder 00 :00 the [facility] morning Branch for 30 days. polyethylen 2021-07- No [id number] 17g Take 1 [facility] e glycol 0-07 11-07 Packet by ity o f 3350 17 00:00: 05:59 mouth in [place] gram powder 00 :00 the [facility] morning Branch for 30 days. polyethylen 2021-07- No [id number] 17g Take 1 [facility] e glycol 0-07 11-07 Packet by ity o f 3350 17 00:00: 05:59 mouth in [place] gram powder 00 :00 the [facility] morning Branch for 30 days. polyethylen 2021-07- No [id number] 17g Take 1 [facility] e glycol 0-07 11-07 Packet by ity o f 3350 17 00:00: 05:59 mouth in [place] gram powder 00 :00 the [facility] morning Branch for 30 days. polyethylen 2021-07- No [id number] 17g Take 1 [facility] e glycol 0-07 11-07 Packet by ity o f 3350 17 00:00: 05:59 mouth in [place] gram powder 00 :00 the [facility] morning Branch for 30 days. polyethylen 2021-07- No [id number] 17g Take 1 [facility] e glycol 0-07 11-07 Packet by ity o f 3350 17 00:00: 05:59 mouth in [place] gram powder 00 :00 the [facility] morning Branch for 30 days. polyethylen 2021-07- No [id number] 17g Take 1 [facility] e glycol 0-07 11-07 Packet by ity o f 3350 17 00:00: 05:59 mouth in [place] gram powder 00 :00 the [facility] morning Branch for 30 days. polyethylen 2021-07- No [id number] 17g Take 1 [facility] e glycol 0-07 11-07 Packet by ity o f 3350 17 00:00: 05:59 mouth in [place] gram powder 00 :00 the [facility] morning Branch for 30 days. polyethylen 2021-07- No [id number] 17g Take 1 [facility] e glycol 0-07 11-07 Packet by ity o f 3350 17 00:00: 05:59 mouth in [place] gram powder 00 :00 the Medical morning Branch for 30 days. polyethylen 2021-07- No [id number] 17g Take 1 [facility] e glycol 0-07 11-07 Packet by ity o f 3350 17 00:00: 05:59 mouth in [place] gram powder 00 :00 the Medical morning Branch for 30 days. polyethylen 2021-07- No [id number] 17g Take 1 [facility] e glycol 0-07 11-07 Packet by ity o f 3350 17 00:00: 05:59 mouth in [place] gram powder 00 :00 the Medical morning Branch for 30 days. polyethylen 2021-07- No [id number] 17g Take 1 [facility] e glycol 0-07 11-07 Packet by ity o f 3350 17 00:00: 05:59 mouth in [place] gram powder 00 :00 the Medical morning Branch for 30 days. polyethylen 2021-07- No [id number] 17g Take 1 [facility] e glycol 0-07 11-07 Packet by ity o f 3350 17 00:00: 05:59 mouth in [place] gram powder 00 :00 the Medical morning Branch for 30 days. polyethylen 2021-07- No [id number] 17g Take 1 [facility] e glycol 0-07 11-07 Packet by ity o f 3350 17 00:00: 05:59 mouth in [place] gram powder 00 :00 the Medical morning Branch for 30 days. polyethylen 2021-07- No [id number] 17g Take 1 [facility] e glycol 0-07 11-07 Packet by ity o f 3350 17 00:00: 05:59 mouth in [place] gram powder 00 :00 the Medical morning Branch for 30 days. polyethylen 2021-07- No [id number] 17g Take 1 [facility] e glycol 0-07 11-07 Packet by ity o f 3350 17 00:00: 05:59 mouth in [place] gram powder 00 :00 the Medical morning Branch for 30 days. polyethylen 2021-07- No [id number] 17g Take 1 [facility] e glycol 0-07 11-07 Packet by ity o f 3350 17 00:00: 05:59 mouth in [place] gram powder 00 :00 the Medical morning Branch for 30 days. polyethylen 2021-07- No [id number] 17g Take 1 [facility] e glycol 0-07 11-07 Packet by ity o f 3350 17 00:00: 05:59 mouth in [place] gram powder 00 :00 the Medical morning Branch for 30 days. polyethylen 2021-07- No [id number] 17g Take 1 [facility] e glycol 0-07 11-07 Packet by ity o f 3350 17 00:00: 05:59 mouth in [place] gram powder 00 :00 the Medical morning Branch for 30 days. polyethylen 2021-07- No [id number] 17g Take 1 [facility] e glycol 0-07 11-07 Packet by ity o f 3350 17 00:00: 05:59 mouth in [place] gram powder 00 :00 the Medical morning Branch for 30 days. polyethylen 2021-07- No [id number] 17g Take 1 [facility] e glycol 0-07 11-07 Packet by ity o f 3350 17 00:00: 05:59 mouth in [place] gram powder 00 :00 the Medical morning Branch for 30 days. polyethylen 2021-07- No [id number] 17g Take 1 [facility] e glycol 0-07 11-07 Packet by ity o f 3350 17 00:00: 05:59 mouth in [place] gram powder 00 :00 the Medical morning Branch for 30 days. polyethylen 2021-07- No [id number] 17g Take 1 [facility] e glycol 0-07 11-07 Packet by ity o f 3350 17 00:00: 05:59 mouth in [place] gram powder 00 :00 the Medical morning Branch for 30 days. lamoTRIgine 2021-07- No 25mg Take 1 Uni [...] [place] 00 :00 the Medical morning. [place] lamoTRIgine 2021-2021- No 25mg Take 1 Uni vers 25 mg 0-07 10-18 tablet by ity of tablet 00:00: 00:00 mouth in [place] 00 :00 the Medical morning. [place] lamoTRIgine 2021-2021- No 25mg Take 1 [facility] vers 25 mg 0-07 10-18 tablet by ity of tablet 00:00: 00:00 mouth in [place] 00 :00 the Medical morning. [place] lamoTRIgine 2021-2021- No 25mg Take 1 [facility] vers 25 mg 0-07 10-18 tablet by ity of tablet 00:00: 00:00 mouth in [place] 00 :00 the Medical morning. [place] lamoTRIgine 2021-2021- No 25mg Take 1 [facility] vers 25 mg 0-07 10-18 tablet by ity of tablet 00:00: 00:00 mouth in [place] 00 :00 the Medical morning. [place] lamoTRIgine 2021-2021- No 25mg Take 1 [facility] vers 25 mg 0-07 10-18 tablet by ity of tablet 00:00: 00:00 mouth in [place] 00 :00 the Medical morning. [place] lamoTRIgine 2021-2021- No 25mg Take 1 [facility] vers 25 mg 0-07 10-18 tablet by ity of tablet 00:00: 00:00 mouth in [place] 00 :00 the Medical morning. [place] lamoTRIgine 2021-2021- No 25mg Take 1 [facility] vers 25 mg 0-07 10-18 tablet by ity of tablet 00:00: 00:00 mouth in [place] 00 :00 the Medical morning. [place] lamoTRIgine 2021-2021- No 25mg Take 1 [facility] vers 25 mg 0-07 10-18 tablet by ity of tablet 00:00: 00:00 mouth in [place] 00 :00 the Medical morning. [place] tamsulosin 2021-2021- No [id number] .4mg Take 1 [facility] 0.4 mg 24 0-07 10-15 capsule by ity of hr capsule 00:00: 04:59 mouth in [facility] 00 :00 the Medical morning Branch for 7 days. tamsulosin 2021-07- No [id number] .4mg Take 1 [facility] 0.4 mg 24 0-07 10-15 capsule by ity of hr capsule 00:00: 04:59 mouth in [place] 00 :00 the [facility] morning Branch for 7 days. tamsulosin 2021-07- No [id number] .4mg Take 1 [facility] 0.4 mg 24 0-07 10-15 capsule by ity of hr capsule 00:00: 04:59 mouth in [place] 00 :00 the [facility] morning Branch for 7 days. tamsulosin 2021-07- No [id number] .4mg Take 1 [facility] 0.4 mg 24 0-07 10-15 capsule by ity of hr capsule 00:00: 04:59 mouth in [place] 00 :00 the [facility] morning Branch for 7 days. tamsulosin 2021-07- No [id number] .4mg Take 1 [facility] 0.4 mg 24 0-07 10-15 capsule by ity of hr capsule 00:00: 04:59 mouth in [place] 00 :00 the [facility] morning Branch for 7 days. tamsulosin 2021-07- No [id number] .4mg Take 1 [facility] 0.4 mg 24 0-07 10-15 capsule by ity of hr capsule 00:00: 04:59 mouth in [place] 00 :00 the [facility] morning Branch for 7 days. tamsulosin 2021-07- No [id number] .4mg Take 1 [facility] 0.4 mg 24 0-07 10-15 capsule by ity of hr capsule 00:00: 04:59 mouth in [place] 00 :00 the [facility] morning Branch for 7 days. tamsulosin 2021-07 No [id number] .4mg Take 1 [facility] 0.4 mg 24 0-07 10-15 capsule by ity of hr capsule 00:00: 04:59 mouth in [place] 00 :00 the [facility] morning Branch for 7 days. tamsulosin 2021-07- No [id number] .4mg Take 1 [facility] 0.4 mg 24 0-07 10-15 capsule by ity of hr capsule 00:00: 04:59 mouth in [place] 00 :00 the [facility] morning Branch for 7 days. tamsulosin 2021-07- No [id number] .4mg Take 1 [facility] 0.4 mg 24 0-07 10-15 capsule by ity of hr capsule 00:00: 04:59 mouth in [place] 00 :00 the Medical morning Branch for 7 days. tamsulosin 2021-07- No [id number] .4mg Take 1 [facility] 0.4 mg 24 0-07 10-15 capsule by ity of hr capsule 00:00: 04:59 mouth in [place] 00 :00 the [facility] morning Branch for 7 days. tamsulosin 2021-07- No [id number] .4mg Take 1 [facility] 0.4 mg 24 0-07 10-15 capsule by ity of hr capsule 00:00: 04:59 mouth in [place] 00 :00 the [facility] morning Branch for 7 days. tamsulosin 2021-07- No [id number] .4mg Take 1 [facility] 0.4 mg 24 0-07 10-15 capsule by ity of hr capsule 00:00: 04:59 mouth in [place] 00 :00 the [facility] morning Branch for 7 days. tamsulosin 2021-07- No [id number] .4mg Take 1 [facility] 0.4 mg 24 0-07 10-15 capsule by ity of hr capsule 00:00: 04:59 mouth in [place] 00 :00 the [facility] morning Branch for 7 days. tamsulosin 2021-07- No [id number] .4mg Take 1 [facility] 0.4 mg 24 0-07 10-15 capsule by ity of hr capsule 00:00: 04:59 mouth in [place] 00 :00 the [facility] morning Branch for 7 days. tamsulosin 2021-07 No [id number] .4mg Take 1 [facility] 0.4 mg 24 0-07 10-15 capsule by ity of hr capsule 00:00: 04:59 mouth in [place] 00 :00 the [facility] morning Branch for 7 days. tamsulosin 2021-07 No [id number] .4mg Take 1 [facility] 0.4 mg 24 0-07 10-15 capsule by ity of hr capsule 00:00: 04:59 mouth in [place] 00 :00 the [facility] morning Branch for 7 days. tamsulosin 2021-07- No [id number] .4mg Take 1 [facility] 0.4 mg 24 0-07 10-15 capsule by ity of hr capsule 00:00: 04:59 mouth in [place] 00 :00 the Medical morning Branch for 7 days. tamsulosin 2021-2021- No [id number] .4mg Take 1 [facility] 0.4 mg 24 0-07 10-15 capsule by ity of hr capsule 00:00: 04:59 mouth in [place] 00 :00 the Medical morning Branch for 7 days. tamsulosin 2021-07- No [id number] .4mg Take 1 [facility] 0.4 mg 24 0-07 10-15 capsule by ity of hr capsule 00:00: 04:59 mouth in [place] 00 :00 the Medical morning Branch for 7 days. tamsulosin 2021-07- No [id number] .4mg Take 1 [facility] 0.4 mg 24 [...] :00 the Medical morning. Branch atomoxetine 2021-07- 40mg Take 1 [facility] vers 40 mg 0-07 10-13 capsule by ity of capsule 00:00: 00:00 mouth in [place] 00 :00 the Medical morning. Branch traZODone 2021-07 Yes 50mg 50 mg, Univer s (DESYREL) 0-06 Oral, QHS, ity of tablet 50 02:00: First dose [place] mg 00 on Mon04/06/22 at Branch 2100, Until Discontinu ed, Routine acetaminoph 2021-07 Yes [id number] 1000mg Take 2 [facility] en 500 mg 0-06 tablets by ity of tablet 00:00: mouth [place] 00 every 8 Medical (eight) Branch hours as needed for Pain. traZODone 2021-07 Yes 50mg Take 1 [facility] s 50 mg 0-06 tablet by ity of tablet 00:00: mouth at [place] 00 bedtime. Medical Branch methocarbam 2021-07 Yes [id number] 500mg Take 1 [facility] oL 500 mg 0-06 tablet by ity o f tablet 00:00: mouth 4 [place] 00 (four) Medical times Branch daily as needed (muscle spasms). ibuprofen 2021-07 Yes [id number] 600mg Take 1 [facility] 600 mg 0-06 tablet by ity of tablet 00:00: mouth [place] 00 every 6 Medical (six) Branch hours as needed for Pain (scale 4-6). acetaminoph 2021-07 Yes [id number] 1000mg Take 2 [facility] en 500 mg 0-06 tablets by ity of tablet 00:00: mouth [place] 00 every 8 Medical (eight) Branch hours as needed for Pain. traZODone 2021-07 Yes 50mg Take 1 [facility] s 50 mg 0-06 tablet by ity of tablet 00:00: mouth at [place] 00 bedtime. Medical Branch methocarbam 2021-07 Yes [id number] 500mg Take 1 [facility] oL 500 mg 0-06 tablet by ity o f tablet 00:00: mouth 4 [place] 00 (four) Medical times Branch daily as needed (muscle spasms). ibuprofen 2021-07 Yes [id number] 600mg Take 1 [facility] 600 mg 0-06 tablet by ity of tablet 00:00: mouth [place] 00 every 6 Medical (six) Branch hours as needed for Pain (scale 4-6). acetaminoph 2021-07 Yes [id number] 1000mg Take 2 [facility] en 500 mg 0-06 tablets by ity of tablet 00:00: mouth [place] 00 every 8 Medical (eight) Branch hours as needed for Pain. traZODone 2021-07 Yes 50mg Take 1 [facility] s 50 mg 0-06 tablet by ity of tablet 00:00: mouth at [place] 00 bedtime. Medical Branch methocarbam 2021-07 Yes [id number] 500mg Take 1 [facility] oL 500 mg 0-06 tablet by ity o f tablet 00:00: mouth 4 [place] 00 (four) Medical times Branch daily as needed (muscle spasms). ibuprofen 2021-07 Yes [id number] 600mg Take 1 [facility] 600 mg 0-06 tablet by ity of tablet 00:00: mouth [place] 00 every 6 Medical (six) Branch hours as needed for Pain (scale 4-6). acetaminoph 2021-07 Yes [id number] 1000mg Take 2 [facility] en 500 mg 0-06 tablets by ity of tablet 00:00: mouth [place] 00 every 8 Medical (eight) Branch hours as needed for Pain. traZODone 2021-07 Yes 50mg Take 1 [facility] s 50 mg 0-06 tablet by ity of tablet 00:00: mouth at [place] 00 bedtime. [facility] Branch methocarbam 2021-07 Yes [id number] 500mg Take 1 [facility] oL 500 mg 0-06 tablet by [facility] o f tablet 00:00: mouth 4 00 (four) Medical times Branch daily as needed (muscle spasms). ibuprofen 2021-07 Yes [id number] 600mg Take 1 [facility] 600 mg 0-06 tablet by [facility] of tablet 00:00: mouth [place] 00 every 6 Medical (six) Branch hours as needed for Pain (scale 4-6). acetaminoph 2021-07 Yes [id number] 1000mg Take 2 [facility] en 500 mg 0-06 tablets by [facility] of tablet 00:00: mouth [place] 00 every 8 Medical (eight) Branch hours as needed for Pain. traZODone 2021-07 Yes 50mg Take 1 [facility] 50 mg 0-06 tablet by [facility] of tablet 00:00: mouth at [place] 00 bedtime. [facility] Branch methocarbam 2021-07 Yes [id number] 500mg Take 1 [facility] oL 500 mg 0-06 tablet by [facility] o f tablet 00:00: mouth 4 00 (four) Medical times Branch daily as needed (muscle spasms). ibuprofen 2021-07 Yes [id number] 600mg Take 1 [facility] 600 mg 0-06 tablet by [facility] of tablet 00:00: mouth [place] 00 every 6 Medical (six) Branch hours as needed for Pain (scale 4-6). acetaminoph 2021-07 Yes [id number] 1000mg Take 2 [facility] en 500 mg 0-06 tablets by [facility] of tablet 00:00: mouth [place] 00 every 8 Medical (eight) Branch hours as needed for Pain. traZODone 2021-07 Yes 50mg Take 1 [facility] 50 mg 0-06 tablet by [facility] of tablet 00:00: mouth at [place] 00 bedtime. [facility] methocarbam 2021-07 Yes [id number] 500mg Take 1 [facility] oL 500 mg 0-06 tablet by [facility] o f tablet 00:00: mouth (four) Medical times Branch daily as needed (muscle spasms). ibuprofen 2021-07 Yes [id number] 600mg Take 1 [facility] 600 mg 0-06 tablet by [facility] of tablet 00:00: mouth [place] 00 every 6 Medical (six) Branch hours as needed for Pain (scale 4-6). acetaminoph 2021-07 Yes [id number] 1000mg Take 2 [facility] en 500 mg 0-06 tablets by [facility] of tablet 00:00: mouth [place] 00 every 8 Medical (eight) Branch hours as needed for Pain. traZODone 2021-07 Yes 50mg Take 1 [facility] 50 mg 0-06 tablet by [facility] of tablet 00:00: mouth at [place] 00 bedtime. [facility] methocarbam 2021-07 Yes [id number] 500mg Take 1 [facility] oL 500 mg 0-06 tablet by [facility] o f tablet 00:00: mouth 4 00 (four) Medical times Branch daily as needed (muscle spasms). ibuprofen 2021-07 Yes [id number] 600mg Take 1 [facility] 600 mg 0-06 tablet by [facility] of tablet 00:00: mouth [place] 00 every 6 Medical (six) Branch hours as needed for Pain (scale 4-6). acetaminoph 2021-07 Yes [id number] 1000mg Take 2 [facility] en 500 mg 0-06 tablets by [facility] of tablet 00:00: mouth [place] 00 every 8 Medical (eight) Branch hours as needed for Pain. traZODone 2021-07 Yes 50mg Take 1 [facility] 50 mg 0-06 tablet by [facility] of tablet 00:00: mouth at [place] 00 bedtime. [facility] methocarbam 2021-07 Yes [id number] 500mg Take 1 [facility] oL 500 mg 0-06 tablet by [facility] o f tablet 00:00: mouth (four) Medical times Branch daily as needed (muscle spasms). ibuprofen 2021-07 Yes [id number] 600mg Take 1 [facility] 600 mg 0-06 tablet by [facility] of tablet 00:00: mouth 00 every 6 Medical (six) Branch hours as needed for Pain (scale 4-6). acetaminoph 2021-07 Yes [id number] 1000mg Take 2 [facility] en 500 mg 0-06 tablets by [facility] of tablet 00:00: mouth 00 every 8 Medical (eight) Branch hours as needed for Pain. traZODone 2021-07 Yes 50mg Take 1 [facility] 50 mg 0-06 tablet by [facility] of tablet 00:00: mouth at 00 bedtime. [facility] methocarbam 2021-07 Yes [id number] 500mg Take 1 [facility] oL 500 mg 0-06 tablet by [facility] o f tablet 00:00: mouth (four) Medical times Branch daily as needed (muscle spasms). ibuprofen 2021-07 Yes [id number] 600mg Take 1 [facility] 600 mg 0-06 tablet by [facility] of tablet 00:00: mouth 00 every 6 Medical (six) Branch hours as needed for Pain (scale 4-6). acetaminoph 2021-07 Yes [id number] 1000mg Take 2 [facility] en 500 mg 0-06 tablets by [facility] of tablet 00:00: mouth [place] 00 every 8 Medical (eight) Branch hours as needed for Pain. traZODone 2021-07 Yes 50mg Take 1 [facility] 50 mg 0-06 tablet by [facility] of tablet 00:00: mouth at [place] 00 bedtime. [facility] methocarbam 2021-07 Yes [id number] 500mg Take 1 [facility] oL 500 mg 0-06 tablet by [facility] o f tablet 00:00: mouth (four) Medical times Branch daily as needed (muscle spasms). ibuprofen 2021-07 Yes [id number] 600mg Take 1 [facility] 600 mg 0-06 tablet by [facility] of tablet 00:00: mouth [place] 00 every 6 Medical (six) Branch hours as needed for Pain (scale 4-6). acetaminoph 2021-07 Yes [id number] 1000mg Take 2 [facility] en 500 mg 0-06 tablets by [facility] of tablet 00:00: mouth [place] 00 every 8 Medical (eight) Branch hours as needed for Pain. traZODone 2021-07 Yes 50mg Take 1 [facility] 50 mg 0-06 tablet by [facility] of tablet 00:00: mouth at [place] 00 bedtime. [facility] methocarbam 2021-07 Yes [id number] 500mg Take 1 [facility] oL 500 mg 0-06 tablet by [facility] o f tablet 00:00: mouth 4 [place] 00 (four) Medical times Branch daily as needed (muscle spasms). ibuprofen 2021-07 Yes [id number] 600mg Take 1 [facility] 600 mg 0-06 tablet by [facility] of tablet 00:00: mouth [place] 00 every 6 Medical (six) Branch hours as needed for Pain (scale 4-6). acetaminoph 2021-07 Yes [id number] 1000mg Take 2 [facility] en 500 mg 0-06 tablets by [facility] of tablet 00:00: mouth [place] 00 every 8 Medical (eight) Branch hours as needed for Pain. traZODone 2021-07 Yes 50mg Take 1 [facility] 50 mg 0-06 tablet by [facility] of tablet 00:00: mouth at [place] 00 bedtime. [facility] methocarbam 2021-07 Yes [id number] 500mg Take 1 [facility] oL 500 mg 0-06 tablet by [facility] o f tablet 00:00: mouth 4 [place] 00 (four) Medical times Branch daily as needed (muscle spasms). ibuprofen 2021-07 Yes [id number] 600mg Take 1 [facility] 600 mg 0-06 tablet by [facility] of tablet 00:00: mouth [place] 00 every 6 Medical (six) Branch hours as needed for Pain (scale 4-6). acetaminoph 2021-07 Yes [id number] 1000mg Take 2 [facility] en 500 mg 0-06 tablets by [facility] of tablet 00:00: mouth [place] 00 every 8 Medical (eight) Branch hours as needed for Pain. traZODone 2021-07 Yes 50mg Take 1 [facility] 50 mg 0-06 tablet by [facility] of tablet 00:00: mouth at [place] 00 bedtime. [facility] methocarbam 2021-07 Yes [id number] 500mg Take 1 [facility] oL 500 mg 0-06 tablet by [facility] o f tablet 00:00: mouth 4 00 (four) Medical times Branch daily as needed (muscle spasms). ibuprofen 2021-07 Yes [id number] 600mg Take 1 [facility] 600 mg 0-06 tablet by [facility] of tablet 00:00: mouth [place] 00 every 6 Medical (six) Branch hours as needed for Pain (scale 4-6). acetaminoph 2021-07 Yes [id number] 1000mg Take 2 [facility] en 500 mg 0-06 tablets by [facility] of tablet 00:00: mouth 00 every 8 Medical (eight) Branch hours as needed for Pain. traZODone 2021-07 Yes 50mg Take 1 [facility] 50 mg 0-06 tablet by [facility] of tablet 00:00: mouth at 00 bedtime. [facility] methocarbam 2021-07 Yes [id number] 500mg Take 1 [facility] oL 500 mg 0-06 tablet by [facility] o f tablet 00:00: mouth (four) Medical times Branch daily as needed (muscle spasms). ibuprofen 2021-07 Yes [id number] 600mg Take 1 [facility] 600 mg 0-06 tablet by [facility] of tablet 00:00: mouth [place] 00 every 6 Medical (six) Branch hours as needed for Pain (scale 4-6). acetaminoph 2021-07 Yes [id number] 1000mg Take 2 [facility] en 500 mg 0-06 tablets by [facility] of tablet 00:00: mouth [place] 00 every 8 Medical (eight) Branch hours as needed for Pain. traZODone 2021-07 Yes 50mg Take 1 [facility] 50 mg 0-06 tablet by [facility] of tablet 00:00: mouth at [place] 00 bedtime. [facility] methocarbam 2021-07 Yes [id number] 500mg Take 1 [facility] oL 500 mg 0-06 tablet by [facility] o f tablet 00:00: mouth 4 00 (four) Medical times Branch daily as needed (muscle spasms). ibuprofen 2021-07 Yes [id number] 600mg Take 1 [facility] 600 mg 0-06 tablet by [facility] of tablet 00:00: mouth [place] 00 every 6 Medical (six) Branch hours as needed for Pain (scale 4-6). acetaminoph 2021-07 Yes [id number] 1000mg Take 2 [facility] en 500 mg 0-06 tablets by [facility] of tablet 00:00: mouth [place] 00 every 8 Medical (eight) Branch hours as needed for Pain. traZODone 2021-07 Yes 50mg Take 1 [facility] 50 mg 0-06 tablet by [facility] of tablet 00:00: mouth at [place] 00 bedtime. [facility] methocarbam 2021-07 Yes [id number] 500mg Take 1 [facility] o[facility] 500 mg 0-06 tablet by [facility] o f tablet 00:00: mouth (four) Medical times Branch daily as needed (muscle spasms). ibuprofen 2021-07 Yes [id number] 600mg Take 1 [facility] 600 mg 0-06 tablet by [facility] of tablet 00:00: mouth [place] 00 every 6 Medical (six) Branch hours as needed for Pain (scale 4-6). acetaminoph 2021-07 Yes [id number] 1000mg Take 2 [facility] en 500 mg 0-06 tablets by [facility] of tablet 00:00: mouth 00 every 8 Medical (eight) Branch hours as needed for Pain. traZODone 2021-07 Yes 50mg Take 1 [facility] 50 mg 0-06 tablet by [facility] of tablet 00:00: mouth at [place] 00 bedtime. [facility] methocarbam 2021-07 Yes [id number] 500mg Take 1 [facility] o[facility] 500 mg 0-06 tablet by [facility] o f tablet 00:00: mouth (four) Medical times Branch daily as needed (muscle spasms). ibuprofen 2021-07 Yes [id number] 600mg Take 1 [facility] 600 mg 0-06 tablet by [facility] of tablet 00:00: mouth [place] 00 every 6 Medical (six) Branch hours as needed for Pain (scale 4-6). acetaminoph 2021-07 Yes [id number] 1000mg Take 2 [facility] en 500 mg 0-06 tablets by [facility] of tablet 00:00: mouth [place] 00 every 8 Medical (eight) Branch hours as needed for Pain. traZODone 2021-07 Yes 50mg Take 1 [facility] 50 mg 0-06 tablet by [facility] of tablet 00:00: mouth at [place] 00 bedtime. [facility] methocarbam 2021-07 Yes [id number] 500mg Take 1 [facility] oL 500 mg 0-06 tablet by [facility] o f tablet 00:00: mouth 4 (four) Medical times Branch daily as needed (muscle spasms). ibuprofen 2021-07 Yes [id number] 600mg Take 1 [facility] 600 mg 0-06 tablet by [facility] of tablet 00:00: mouth [place] 00 every 6 Medical (six) Branch hours as needed for Pain (scale 4-6). acetaminoph 2021-07 Yes [id number] 1000mg Take 2 [facility] en 500 mg 0-06 tablets by [facility] of tablet 00:00: mouth [place] 00 every 8 Medical (eight) Branch hours as needed for Pain. traZODone 2021-07 Yes 50mg Take 1 [facility] 50 mg 0-06 tablet by [facility] of tablet 00:00: mouth at [place] 00 bedtime. [facility] methocarbam 2021-07 Yes [id number] 500mg Take 1 [facility] oL 500 mg 0-06 tablet by [facility] o f tablet 00:00: mouth (four) Medical times Branch daily as needed (muscle spasms). ibuprofen 2021-07 Yes [id number] 600mg Take 1 [facility] 600 mg 0-06 tablet by [facility] of tablet 00:00: mouth [place] 00 every 6 Medical (six) Branch hours as needed for Pain (scale 4-6). acetaminoph 2021-07 Yes [id number] 1000mg Take 2 [facility] en 500 mg 0-06 tablets by [facility] of tablet 00:00: mouth [place] 00 every 8 Medical (eight) Branch hours as needed for Pain. traZODone 2021-07 Yes 50mg Take 1 [facility] 50 mg 0-06 tablet by [facility] of tablet 00:00: mouth at [place] 00 bedtime. Medical Branch methocarbam 2021-07 Yes [id number] 500mg Take 1 [facility] oL 500 mg 0-06 tablet by [facility] o f tablet 00:00: mouth (four) Medical times Branch daily as needed (muscle spasms). ibuprofen 2021-07 Yes [id number] 600mg Take 1 [facility] 600 mg 0-06 tablet by [facility] of tablet 00:00: mouth [place] 00 every 6 Medical (six) Branch hours as needed for Pain (scale 4-6). acetaminoph 2021-07 Yes [id number] 1000mg Take 2 [facility] en 500 mg 0-06 tablets by [facility] of tablet 00:00: mouth [place] 00 every 8 Medical (eight) Branch hours as needed for Pain. traZODone 2021-07 Yes 50mg Take 1 [facility] 50 mg 0-06 tablet by [facility] of tablet 00:00: mouth at [place] 00 bedtime. [facility] methocarbam 2021-07 Yes [id number] 500mg Take 1 [facility] oL 500 mg 0-06 tablet by [facility] o f tablet 00:00: mouth 4 [place] 00 (four) Medical times Branch daily as needed (muscle spasms). ibuprofen 2021-07 Yes [id number] 600mg Take 1 [facility] 600 mg 0-06 tablet by [facility] of tablet 00:00: mouth [place] 00 every 6 Medical (six) Branch hours as needed for Pain (scale 4-6). acetaminoph 2021-07 Yes [id number] 1000mg Take 2 [facility] en 500 mg 0-06 tablets by [facility] of tablet 00:00: mouth [place] 00 every 8 Medical (eight) Branch hours as needed for Pain. traZODone 2021-07 Yes 50mg Take 1 [facility] 50 mg 0-06 tablet by [facility] of tablet 00:00: mouth at [place] 00 bedtime. [facility] methocarbam 2021-07 Yes [id number] 500mg Take 1 [facility] oL 500 mg 0-06 tablet by [facility] o f tablet 00:00: mouth 4 00 (four) Medical times Branch daily as needed (muscle spasms). ibuprofen 2021-07 Yes [id number] 600mg Take 1 [facility] 600 mg 0-06 tablet by [facility] of tablet 00:00: mouth [place] 00 every 6 Medical (six) Branch hours as needed for Pain (scale 4-6). acetaminoph 2021-07 Yes [id number] 1000mg Take 2 [facility] en 500 mg 0-06 tablets by [facility] of tablet 00:00: mouth [place] 00 every 8 Medical (eight) Branch hours as needed for Pain. traZODone 2021-07 Yes 50mg Take 1 [facility] 50 mg 0-06 tablet by [facility] of tablet 00:00: mouth at [place] 00 bedtime. Medical Branch methocarbam 2021-07 Yes [id number] 500mg Take 1 [facility] oL 500 mg 0-06 tablet by [facility] o f tablet 00:00: mouth 4 00 (four) Medical times Branch daily as needed (muscle spasms). ibuprofen 2021-07 Yes [id number] 600mg Take 1 [facility] 600 mg 0-06 tablet by [facility] of tablet 00:00: mouth [place] 00 every 6 Medical (six) Branch hours as needed for Pain (scale 4-6). acetaminoph 2021-07 Yes [id number] 1000mg Take 2 [facility] en 500 mg 0-06 tablets by [facility] of tablet 00:00: mouth [place] 00 every 8 Medical (eight) Branch hours as needed for Pain. traZODone 2021-07 Yes 50mg Take 1 [facility] 50 mg 0-06 tablet by [facility] of tablet 00:00: mouth at [place] 00 bedtime. Medical Branch methocarbam 2021-07 Yes [id number] 500mg Take 1 [facility] oL 500 mg 0-06 tablet by [facility] o f tablet 00:00: mouth 4 (four) Medical times Branch daily as needed (muscle spasms). ibuprofen 2021-07 Yes [id number] 600mg Take 1 [facility] 600 mg 0-06 tablet by [facility] of tablet 00:00: mouth [place] 00 every 6 Medical (six) Branch hours as needed for Pain (scale 4-6). acetaminoph 2021-07 Yes [id number] 1000mg Take 2 [facility] en 500 mg 0-06 tablets by [facility] of tablet 00:00: mouth [place] 00 every 8 Medical (eight) Branch hours as needed for Pain. traZODone 2021-07 Yes 50mg Take 1 [facility] 50 mg 0-06 tablet by [facility] of tablet 00:00: mouth at [place] 00 bedtime. Medical [facility] methocarbam 2021-07 Yes [id number] 500mg Take 1 [facility] oL 500 mg 0-06 tablet by [facility] o f tablet 00:00: mouth 4 00 (four) Medical times Branch daily as needed (muscle spasms). ibuprofen 2021-07 Yes [id number] 600mg Take 1 [facility] 600 mg 0-06 tablet by [facility] of tablet 00:00: mouth [place] 00 every 6 Medical (six) Branch hours as needed for Pain (scale 4-6). acetaminoph 2021-07 Yes [id number] 1000mg Take 2 [facility] en 500 mg 0-06 tablets by [facility] of tablet 00:00: mouth [place] 00 every 8 Medical (eight) Branch hours as needed for Pain. traZODone 2021-07 Yes 50mg Take 1 [facility] 50 mg 0-06 tablet by [facility] of tablet 00:00: mouth at [place] 00 bedtime. [facility] methocarbam 2021-07 Yes [id number] 500mg Take 1 [facility] oL 500 mg 0-06 tablet by [facility] o f tablet 00:00: mouth 4 (four) Medical times Branch daily as needed (muscle spasms). ibuprofen 2021-07 Yes [id number] 600mg Take 1 [facility] 600 mg 0-06 tablet by [facility] of tablet 00:00: mouth [place] 00 every 6 Medical (six) Branch hours as needed for Pain (scale 4-6). acetaminoph 2021-07 Yes [id number] 1000mg Take 2 [facility] en 500 mg 0-06 tablets by [facility] of tablet 00:00: mouth 00 every 8 Medical (eight) Branch hours as needed for Pain. traZODone 2021-07 Yes 50mg Take 1 [facility] 50 mg 0-06 tablet by [facility] of tablet 00:00: mouth at 00 bedtime. Medical Branch methocarbam 2021-07 Yes [id number] 500mg Take 1 [facility] oL 500 mg 0-06 tablet by [facility] o f tablet 00:00: mouth (four) Medical times Branch daily as needed (muscle spasms). ibuprofen 2021-07 Yes [id number] 600mg Take 1 [facility] 600 mg 0-06 tablet by [facility] of tablet 00:00: mouth 00 every 6 Medical (six) Branch hours as needed for Pain (scale 4-6). acetaminoph 2021-07 Yes [id number] 1000mg Take 2 [facility] en 500 mg 0-06 tablets by [facility] of tablet 00:00: mouth [place] 00 every 8 Medical (eight) Branch hours as needed for Pain. traZODone 2021-07 Yes 50mg Take 1 [facility] 50 mg 0-06 tablet by [facility] of tablet 00:00: mouth at [place] 00 bedtime. [facility] methocarbam 2021-07 Yes [id number] 500mg Take 1 [facility] oL 500 mg 0-06 tablet by [facility] o f tablet 00:00: mouth 4 (four) Medical times Branch daily as needed (muscle spasms). ibuprofen 2021-07 Yes [id number] 600mg Take 1 [facility] 600 mg 0-06 tablet by [facility] of tablet 00:00: mouth [place] 00 every 6 Medical (six) Branch hours as needed for Pain (scale 4-6). acetaminoph 2021-07 Yes [id number] 1000mg Take 2 [facility] en 500 mg 0-06 tablets by [facility] of tablet 00:00: mouth [place] 00 every 8 Medical (eight) Branch hours as needed for Pain. traZODone 2021-07 Yes 50mg Take 1 [facility] 50 mg 0-06 tablet by [facility] of tablet 00:00: mouth at [place] 00 bedtime. Medical Branch methocarbam 2021-07 Yes [id number] 500mg Take 1 [facility] oL 500 mg 0-06 tablet by [facility] o f tablet 00:00: mouth 4 [place] 00 (four) Medical times Branch daily as needed (muscle spasms). ibuprofen 2021-07 Yes [id number] 600mg Take 1 [facility] 600 mg 0-06 tablet by [facility] of tablet 00:00: mouth [place] 00 every 6 Medical (six) Branch hours as needed for Pain (scale 4-6). acetaminoph 2021-07- No [id number] 1000mg Take 2 [facility] en 500 mg 0-06 11-29 tablets by [facility] of tablet 00:00: 00:00 mouth [place] 00 :00 every 8 Medical (eight) Branch hours as needed for Pain. traZODone 2021-07- No 50mg Take 1 [facility] 50 mg 0-06 11-29 tablet by [facility] of tablet 00:00: 00:00 mouth at [place] 00 :00 bedtime. Medical Branch methocarbam 2021-07- No [id number] 500mg Take 1 [facility] oL 500 mg 0-06 11-29 tablet by [facility] of tablet 00:00: 00:00 mouth 4 [place] 00 :00 (four) Medical times Branch daily as needed (muscle spasms). ibuprofen 2021-07- No [id number] 600mg Take 1 [facility] 600 mg 0-06 11-29 tablet by [facility] of tablet 00:00: 00:00 mouth [place] 00 :00 every 6 Medical (six) Branch hours as needed for Pain (scale 4-6). acetaminoph 2021-07- No [id number] 1000mg Take 2 [facility] en 500 mg 0-06 11-29 tablets by [facility] of tablet 00:00: 00:00 mouth [place] 00 :00 every 8 Medical (eight) Branch hours as needed for Pain. traZODone 2021-07- No 50mg Take 1 [facility] rs 50 mg 0-06 -29 tablet by [facility] of tablet 00:00: 00:00 mouth at [place] 00 :00 bedtime. Medical Branch methocarbam 2021-07- No [id number] 500mg Take 1 [facility] oL 500 mg 0-06 -29 tablet by [facility] of tablet 00:00: 00:00 mouth 4 [place] 00 :00 (four) Medical times Branch daily as needed (muscle spasms). ibuprofen 2021-07- No [id number] 600mg Take 1 [facility] 600 mg 0-06 11-29 tablet by [facility] of tablet 00:00: 00:00 mouth [place] 00 :00 every 6 Medical (six) Branch hours as needed for Pain (scale 4-6). acetaminoph 2021-07- No [id number] 1000mg Take 2 [facility] en 500 mg 0-06 -29 tablets by [facility]y of tablet 00:00: 00:00 mouth [place] 00 :00 every 8 Medical (eight) Branch hours as needed for Pain. traZODone 2021-07 No 50mg Take 1 [facility] rs 50 mg 0-12 11-29 tablet by [facility] of tablet 00:00: 00:00 mouth at [place] 00 :00 bedtime. Medical Branch methocarbam 2021-07- No [id number] 500mg Take 1 [facility] oL 500 mg 0-12 11-29 tablet by ity of tablet 00:00: 00:00 mouth 4 [place] 00 :00 (four) Medical times Branch daily as needed (muscle spasms). ibuprofen 2021-07- No [id number] 600mg Take 1 [facility] 600 mg 0-06 11-29 tablet by ity of tablet 00:00: 00:00 mouth [place] 00 :00 every 6 Medical (six) Branch hours as needed for Pain (scale 4-6). acetaminoph 2021-07- No [id number] 1000mg Take 2 [facility] en 500 mg 0-06 11-29 tablets by ity of tablet 00:00: 00:00 mouth [place] 00 :00 every 8 Medical (eight) Branch hours as needed for Pain. traZODone 2021-07- No 50mg Take 1 [facility] rs 50 mg 0-06 11-29 tablet by [facility] of tablet 00:00: 00:00 mouth at [place] 00 :00 bedtime. Medical Branch methocarbam 2021-07- No [id number] 500mg Take 1 [facility] oL 500 mg 0-06 11-29 tablet by [facility] of tablet 00:00: 00:00 mouth 4 [place] 00 :00 (four) Medical times Branch daily as needed (muscle spasms). ibuprofen 2021-07- No [id number] 600mg Take 1 [facility] 600 mg 0-06 11-29 tablet by [facility] of tablet 00:00: 00:00 mouth [place] 00 :00 every 6 Medical (six) Branch hours as needed for Pain (scale 4-6). acetaminoph 2021-07 No [id number] 1000mg Take 2 [facility] en 500 mg 0-06 11-29 tablets by ity of tablet 00:00: 00:00 mouth [place] 00 :00 every 8 Medical (eight) Branch hours as needed for Pain. traZODone 2021-07 No 50mg Take 1 [facility] 50 mg 0-06 11-29 tablet by [facility] of tablet 00:00: 00:00 mouth at [place] 00 :00 bedtime. Medical Branch methocarbam 2021-07- No [id number] 500mg Take 1 [facility] oL 500 mg 0-06 -29 tablet by ity of tablet 00:00: 00:00 mouth 4 [place] 00 :00 (four) Medical times Branch daily as needed (muscle spasms). ibuprofen 2021-07- No [id number] 600mg Take 1 [facility] 600 mg 0-06 11-29 tablet by ity of tablet 00:00: 00:00 mouth [place] 00 :00 every 6 Medical (six) Branch hours as needed for Pain (scale 4-6). acetaminoph 2021-07- No [id number] 1000mg Take 2 [facility] en 500 mg 0-06 11-29 tablets by ity of tablet 00:00: 00:00 mouth [place] 00 :00 every 8 Medical (eight) Branch hours as needed for Pain. traZODone 2021-07- No 50mg Take 1 [facility] rs 50 mg 05-31 tablet by [facility]y of tablet 00:00: 00:00 mouth at [place] 00 :00 bedtime. Medical Branch methocarbam 2021-07- No [id number] 500mg Take 1 [facility] oL 500 mg 005-31 tablet by ity of tablet 00:00: 00:00 mouth 4 [place] 00 :00 (four) Medical times Branch daily as needed (muscle spasms). ibuprofen 2021-07- No [id number] 600mg Take 1 [facility] 600 mg 005-31 tablet by it[facility] of tablet 00:00: 00:00 mouth [place] 00 :00 every 6 Medical (six) Branch hours as needed for Pain (scale 4-6). atomoxetine 2021-07 Yes 40mg 40 mg, Univ ers (STRATTERA) 0-05 Oral, ity of capsule 40 16:45: DAILY, [place] mg 00 First dose Medical on Mon Branch 04/06/22 at 1145, Until Discontinu ed, Routine
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
Reason for non-formul freddie use: PATIENT CURRENTLY TAKING NONFORMULA RY PRODUCT lamoTRIgine 2021-07 Yes 25mg 25 mg, Univ ers (LAMICTAL) 0-05 Oral, ity of tablet 25 16:45: DAILY, [place] mg 00 First dose Medical on [facility] Branch 04/06/22 at 1145, Until Discontinu ed, Routine traMADoL 2021-07 Yes 50mg 50 mg, Univers (ULTRAM) 0-05 Oral, Q8H, ity o f tablet 50 16:45: First dose [place] mg 00 on [facility] Medical 04/06/22 at Branch 1145, Until Discontinu ed, Routine oxyCODONE 2021-07 Yes 5mg 5 mg, [facility] immediate 0-05 Oral, ity of release 16:31: Q4HPRN, [place] tablet 5 mg 53 Starting Medi torito on Mon Branch 04/06/22 at 1131, Until Discontinu ed, Routine, Pain (scale 7-10)<b r>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 Restricted medication : KEAGAN LUO celecoxib 2021-07 Yes 100mg 100 mg, Univ ers (CELEBREX) 0-05 Oral, BID ity of capsule 100 15:15: MEALS, [place] mg 00 First dose Medical on Mon [place] 04/06/22 at 1015, Until Discontinu ed, Routine acetaminoph 2021-07 Yes 1000mg 1,000 mg, [facility] en 0-05 Oral, Q8H, ity of (TYLENOL) 15:15: First dose [place] tablet 00 on Mon Medical 1,000 mg 04/06/22 at [facility] h 1015, Until Discontinu ed, Routine [...] on Mon Medical 1,000 mg 04/06/22 at [facility] h 0800, Until Discontinu ed, Routine enoxaparin 2021-07 Yes 30mg 30 mg, Unive rs (LOVENOX) 0-05 Subcutaneo ity of injection 01:00: us, Q12H, [place] as 30 mg 00 First dose Medical on Mon [place] 04/05/22 at 2000, Until Discontinu ed, Routine methocarbam 2021-07- No 1000mg 1,000 mg, [facility] oL 0-04 10-05 Intravenou ity of (ROBAXIN) 19:00: 11:05 s, Q8H, [place] injection 00 :13 First dose Medi [place] 1,000 mg on Mon [place] 04/05/22 at 1400, Until Discontinu ed, Routine [...] 17 g 00 First dose Medical on [facility] [place] 04/05/22 at 0915, Until Discontinu ed, Routine ibuprofen 2021-07 No 600mg 600 mg, Uni vers (IBU) 0-04 10-04 Oral, TID ity of tablet 600 13:00: 14:14 MEALS, [place] mg 00 :08 First dose Medical on [facility] [place] 04/05/22 at 0800, Until Discontinu ed, Routine acetaminoph 2021-07 No 650mg 650 mg, U nivers en 0-04 10-04 Oral, Q6H, ity of (TYLENOL) 05:00: 15:12 First dose [place] tablet 650 00 :14 on [facility] Medical mg 04/05/22 at Branch 0000, Until Discontinu ed, Routine methocarbam 2021-07 No 500mg 500 mg, U nivers oL 0-04 10-04 Oral, QID, ity of (ROBAXIN) 01:00: 15:09 First dose [place] tablet 500 00 :36 on [facility] Medical mg 04/04/22 at Branch 2000, Until Discontinu ed, Routine morpHINE (2 2021-07 No 2mg 2 mg, Slow [facility] mg/mL) 0-03 10-04 IV Push, ity of injection 2 23:22: 14:14 Q4HPRN, [place] mg 51 :08 Starting Medical on [facility] 04/04/22 at 1822, Until Mon04/05/22 at 0914, Routine, Pain (scale 7-10) HYDROcodone 2021-07 No 1{tbl} 1 tablet, Univers -acetaminop 0-03 10-04 Oral, ity of hen (NORCO 23:22: 14:14 Q6HPRN, [place] 5) 5-325 mg 51 :08 Starting Medi torito tablet 1 on [facility] tablet 04/04/22 at 1822, Until Mon04/05/22 at 0914, Routine, Pain (scale 4-6) FENTanyl PF 2021-07- No 50ug 50 mcg, Un [place] (SUBLIMAZE 0-03 10-03 Slow IV ity o f (PF)) 22:00: 21:05 Push, [place] injection 00 :00 ONCE, 1 Medical 50 mcg dose, On Branch [facility] 04/04/22 at 1700, Routine FENTanyl PF 2021-07- No 50ug 50 mcg, Un [place] (SUBLIMAZE 0-03 10-03 Slow IV ity o f (PF)) 20:30: 19:32 Push, [place] injection 00 :00 ONCE, 1 Medical 50 mcg dose, On Branch [facility] 04/04/22 at 1530, Routine ondansetron 2021-07 No 4mg 4 mg, Slow Univers (ZOFRAN 004-04 IV Push, ity of (PF)) 19:45: 19:32 ONCE, 1 [place] injection 4 00 :00 dose, On Medi torito mg [facility] 04/04/22 at 1445, ARLEN iopamidol 2021-07 No [id number] 80mL 80 mL, Univers (ISOVUE 004-04 Intravenou ity o f 370-500 mL) 19:00: 18:49 s, ONCE, 1 [place] injection 00 :00 dose, On Medica l 80 mL [facility] 04/04/22 at 1400, Routine NaCl 0.9% [...] :00 dose, On Medi torito mg [facility] [place] 03/31/22 at 2315, ARLEN ARIPiprazol Yes [id number] 300mg 300 mg by Univers e (ABILIFY 9-15 Intramuscu ity of [place]) 00:00: lar route [place] 300 mg sers 00 once every In dical month. [place] ARIPiprazol 2022-0 Yes 300mg 300 mg by Univers e (ABILIFY 9-15 Intramuscu ity of [place]) 00:00: lar route [place] 300 mg sers 00 once every Me dical month. Branch ARIPiprazol 2-0 Yes [id number] 300mg 300 mg by Univers e (ABILIFY 9-15 Intramuscu ity of [place]) 00:00: lar route [place] 300 mg sers 00 once every Me dical month. Branch ARIPiprazol 2-0 Yes 300mg 300 mg by Univers e (ABILIFY 9-15 Intramuscu ity of [place]) 00:00: lar route [place] 300 mg sers 00 once every Me dical month. Branch ARIPiprazol 2-0 Yes [id number] 300mg 300 mg by Univers e (ABILIFY 9-15 Intramuscu ity of [place]) 00:00: lar route [place] 300 mg sers 00 once every Me dical month. Branch ARIPiprazol 2021-0 Yes 300mg 300 mg by Univers e (ABILIFY 9-15 Intramuscu ity of [place]) 00:00: lar route [place] 300 mg sers 00 once every Me dical month. Branch ARIPiprazol 2-0 Yes [id number] 300mg 300 mg by Univers e (ABILIFY 9-15 Intramuscu ity of [place]) 00:00: lar route [place] 300 mg sers 00 once every Me dical month. Branch ARIPiprazol 2-0 Yes 300mg 300 mg by Univers e (ABILIFY 9-15 Intramuscu ity of [place]) 00:00: lar route [place] 300 mg sers 00 once every Me dical month. Branch ARIPiprazol 2-0 Yes [id number] 300mg 300 mg by Univers e (ABILIFY 9-15 Intramuscu ity of [place]) 00:00: lar route [place] 300 mg sers 00 once every Me dical month. Branch ARIPiprazol 2-0 Yes 300mg 300 mg by Univers e (ABILIFY 9-15 Intramuscu ity of [place]) 00:00: lar route [place] 300 mg sers 00 once every Me dical month. Branch ARIPiprazol 2022-0 Yes [id number] 300mg 300 mg by Univers e (ABILIFY 9-15 Intramuscu ity of [place]) 00:00: lar route [place] 300 mg sers 00 once every Me dical month. Branch ARIPiprazol 2-0 Yes 300mg 300 mg by Univers e (ABILIFY 9-15 Intramuscu ity of [place]) 00:00: lar route [place] 300 mg sers 00 once every Me dical month. Branch ARIPiprazol 2-0 Yes [id number] 300mg 300 mg by Univers e (ABILIFY 9-15 Intramuscu ity of [place]) 00:00: lar route [place] 300 mg sers 00 once every Me dical month. Branch ARIPiprazol 2-0 Yes 300mg 300 mg by Univers e (ABILIFY 9-15 Intramuscu ity of [place]) 00:00: lar route [place] 300 mg sers 00 once every Me dical month. Branch ARIPiprazol 2-0 Yes [id number] 300mg 300 mg by Univers e (ABILIFY 9-15 Intramuscu ity of [place]) 00:00: lar route [place] 300 mg sers 00 once every Me dical month. Branch ARIPiprazol 2-0 Yes [id number] 300mg 300 mg by Univers e (ABILIFY 9-15 Intramuscu ity of [place]) 00:00: lar route [place] 300 mg sers 00 once every Me dical month. Branch ARIPiprazol 2-0 Yes [id number] 300mg 300 mg by Univers e (ABILIFY 9-15 Intramuscu ity of [place]) 00:00: lar route [place] 300 mg sers 00 once every Me dical month. Branch ARIPiprazol 2022-0 Yes [id number] 300mg 300 mg by Univers e (ABILIFY 9-15 Intramuscu ity of [place]) 00:00: lar route [place] 300 mg sers 00 once every Me dical month. Branch ARIPiprazol 2-0 Yes [id number] 300mg 300 mg by Univers e (ABILIFY 9-15 Intramuscu ity of [place]) 00:00: lar route [place] 300 mg sers 00 once every Me dical month. Branch ARIPiprazol 2021-0 Yes [id number] 300mg 300 mg by Univers e (ABILIFY 03-17 Intramuscu ity [facility]) 00:00: lar route [place] 300 mg sers 00 once every Me dical month. Branch ARIPiprazol 2021-0 2022- No 300mg 300 mg by Univers e (LIFY 03-17 Intramuscu it y [facility]) 00:00: 00:00 lar route [place] 300 mg sers 00 :00 once every Me dical month. Branch ARIPiprazol 2021-0 2- No 300mg 300 mg by Univers e (LI03-17 Intramuscu it y [facility]) 00:00: 00:00 lar route [place] 300 mg sers 00 :00 once every Me dical month. Branch ARIPiprazol 2021-0 2- No 300mg 300 mg by Univers e (LIY 03-17 Intramuscu it y [facility]) 00:00: 00:00 lar route [place] 300 mg sers 00 :00 once every Me dical month. Branch ARIPiprazol 2021-0 2022- No 300mg 300 mg by Univers e (03-17 Intramuscu it y [facility]) 00:00: 00:00 lar route [place] 300 mg sers 00 :00 once every Me dical month. Branch ARIPiprazol 2021-0 2022- No 300mg 300 mg by Univers e (LIFY 03-17 Intramuscu it y [facility]) 00:00: 00:00 lar route [place] 300 mg sers 00 :00 once every Me dical month. Branch ARIPiprazol 2-0 2022- No 300mg 300 mg by Univers e (LI03-17 Intramuscu it y [facility]) 00:00: 00:00 lar route [place] 300 [...] Univers e (ABILIFY 03-17 Intramuscu it y [facility]) 00:00: 00:00 lar route [place] 300 mg sers 00 :00 once every Me dical month. Branch ARIPiprazol 2021- No 300mg 300 mg by Univers e (LIFY 03-17 Intramuscu it y [facility]) 00:00: 00:00 lar route [place] 300 mg sers 00 :00 once every Me dical month. Branch ARIPiprazol 2021-2021- No 300mg 300 mg by Univers e (LIFY 03-17 Intramuscu it y [facility]) 00:00: 00:00 lar route [place] 300 mg sers 00 :00 once every Me dical month. Branch ARIPiprazol 2021-2021- No 300mg 300 mg by Univers e (ABILIFY 03-17 Intramuscu it y [facility]) 00:00: 00:00 lar route [place] 300 mg sers 00 :00 once every Me dical month. Branch ARIPiprazol 2021-2021- No [id number] 10mg Take 1 U nivers e 10 mg 9-08 10-09 tablet by ity of tablet 00:00: 04:59 mouth in [place] 00 :00 the Medical morning [place] for 30 days. ARIPiprazol 2021-2- No [id number] 10mg Take 1 U nivers e 10 mg 9-08 10-09 tablet by ity of tablet 00:00: 04:59 mouth in [place] 00 :00 the Medical morning Branch for 30 days. ARIPiprazol 2021-0 2021- No [id number] 10mg Take 1 U nivers e 10 mg 9-08 10-09 tablet by ity of tablet 00:00: 04:59 mouth in [place] 00 :00 the [facility] morning Branch for 30 days. ARIPiprazol 2021-2021- No [id number] 10mg Take 1 U nivers e 10 mg 9-08 10-09 tablet by ity of tablet 00:00: 04:59 mouth in [place] 00 :00 [facility] for 30 days. ARIPiprazol 2021-0 2- No [id number] 10mg Take 1 U nivers e 10 mg 9-08 10-09 tablet by ity of tablet 00:00: 04:59 mouth in [place] 00 :00 the [facility] for 30 days. ARIPiprazol 2021-0 2- No [id number] 10mg Take 1 U nivers e 10 mg 9-08 10-09 tablet by ity of tablet 00:00: 04:59 mouth in [place] 00 :00 the [facility] for 30 days. ARIPiprazol 2021-0 2- No [id number] 10mg Take 1 U nivers e 10 mg 9-08 10-09 tablet by ity of tablet 00:00: 04:59 mouth in [place] 00 :00 the [facility] for 30 days. ARIPiprazol 2021-2- No [id number] 10mg Take 1 U nivers e 10 mg 9-08 10-09 tablet by ity of tablet 00:00: 04:59 mouth in [place] 00 :00 [facility] for 30 days. ARIPiprazol 2021-2- No [id number] 10mg Take 1 U nivers e 10 mg 9-08 10-09 tablet by ity of tablet 00:00: 04:59 mouth in [place] 00 :00 [facility] for 30 days. ARIPiprazol 2021-2- No [id number] 10mg Take 1 U nivers e 10 mg 9-08 10-09 tablet by ity of tablet 00:00: 04:59 mouth in [place] 00 :00 [facility] for 30 days. ARIPiprazol 2021-0 2- No [id number] 10mg Take 1 U nivers e 10 mg 9-08 10-09 tablet by ity of tablet 00:00: 04:59 mouth in [place] 00 :00 [facility] for 30 days. ARIPiprazol 2021-0 2- No [id number] 10mg Take 1 U nivers e 10 mg 9-08 10-09 tablet by ity of tablet 00:00: 04:59 mouth in [place] 00 :00 [facility] for 30 days. ARIPiprazol 2021-0 No [id number] 10mg Take 1 U nivers e 10 mg 9-08 10-09 tablet by ity of tablet 00:00: 04:59 mouth in [place] 00 :00 the [facility] morning [place] for 30 days. ARIPiprazol 2021- No [id number] 10mg Take 1 U nivers e 10 mg 9-08 10-09 tablet by ity of tablet 00:00: 04:59 mouth in [place] 00 :00 the [facility] morning Branch for 30 days. ARIPiprazol 2021- No [id number] 10mg Take 1 U nivers e 10 mg 9-08 10-09 tablet by ity of tablet 00:00: 04:59 mouth in [place] 00 :00 the [facility] for 30 days. ARIPiprazol 2021- No [id number] 10mg Take 1 U nivers e 10 mg 9-08 10-09 tablet by ity of tablet 00:00: 04:59 mouth in [place] 00 :00 the [facility] for 30 days. ARIPiprazol 2021- No [id number] 10mg Take 1 U nivers e 10 mg 9-08 10-09 tablet by ity of tablet 00:00: 04:59 mouth in [place] 00 :00 the [facility] for 30 days. ARIPiprazol 2021- No [id number] 10mg Take 1 U nivers e 10 mg 9-08 10-09 tablet by ity of tablet 00:00: 04:59 mouth in [place] 00 :00 the [facility] for 30 days. ARIPiprazol 2021- No [id number] 10mg Take 1 U nivers e 10 mg 9-08 10-09 tablet by ity of tablet 00:00: 04:59 mouth in [place] 00 :00 the [facility] for 30 days. ARIPiprazol 2021-2021- No [id number] 10mg Take 1 U nivers e 10 mg 9-08 10-09 tablet by ity of tablet 00:00: 04:59 mouth in [place] 00 :00 the [facility] for 30 days. ARIPiprazol 2021- No [id number] 10mg Take 1 U nivers e 10 mg 9-08 10-09 tablet by ity of tablet 00:00: 04:59 mouth in [place] 00 :00 [facility] for 30 days. ARIPiprazol 2021-2021- No [id number] 10mg Take 1 U nivers e 10 mg 9-08 10-09 tablet by ity of tablet 00:00: 04:59 mouth in [place] 00 :00 [facility] for 30 days. ARIPiprazol 2021-2021- No [id number] 10mg Take 1 U nivers e 10 mg 9-08 10-09 tablet by ity of tablet 00:00: 04:59 mouth in [place] 00 :00 [facility] for 30 days. ARIPiprazol 2021-2021- No [id number] 10mg Take 1 U nivers e 10 mg 9-08 10-09 tablet by ity of tablet 00:00: 04:59 mouth in [place] 00 :00 [facility] for 30 days. ARIPiprazol 2021-2021- No [id number] 10mg Take 1 U nivers e 10 mg 9-08 10-09 tablet by ity of tablet 00:00: 04:59 mouth in [place] 00 :00 [facility] for 30 days. ARIPiprazol 2021-2021- No [id number] 10mg Take 1 U nivers e 10 mg 9-08 10-09 tablet by ity of tablet 00:00: 04:59 mouth in [place] 00 :00 [facility] for 30 days. ARIPiprazol 2021-2021- No [id number] 10mg Take 1 U nivers e 10 mg 9-08 10-09 tablet by ity of tablet 00:00: 04:59 mouth in [place] 00 :00 [facility] for 30 days. ARIPiprazol 2021- No [id number] 10mg Take 1 U nivers e 10 mg 9-08 10-09 tablet by ity of tablet 00:00: 04:59 mouth in [place] 00 :00 [facility] for 30 days. ARIPiprazol 2021- No [id number] 300mg 300 mg by Univers e (ABILIFY 03-09 Intramuscu it y of [facility]) 00:00: 05:59 lar route [place] 300 mg sers 00 :00 once every Me dical month for Branch 90 days. ARIPiprazol 2021-2021- No [id number] 300mg 300 mg by Univers e (ABILIY 03-09 Intramuscu it y of [facility]) 00:00: 00:00 lar route [place] 300 mg sers 00 :00 once every Me dical month for Branch 90 days. ARIPiprazol 2021-2021- No [id number] 300mg 300 mg by Univers e (ABILI 03-09 Intramuscu it y of [facility]) 00:00: 00:00 lar route [place] 300 mg sers 00 :00 once every Me dical month for Branch 90 days. ARIPiprazol 2021-2021- No [id number] 300mg 300 mg by Univers e (ABILI 03-09 Intramuscu it y of [facility]) 00:00: 00:00 lar route [place] 300 mg sers 00 :00 once every Me dical month for Branch 90 days. ARIPiprazol 2021-2021- No [id number] 300mg 300 mg by Univers e (ABILI 03-09 Intramuscu it y of [facility]) 00:00: 00:00 lar route [place] 300 mg sers 00 :00 once every Me dical month for Branch 90 days. ARIPiprazol 2021-2021- No [id number] 300mg 300 mg by Univers e (ABILI 03-09 Intramuscu it y of [facility]) 00:00: 00:00 lar route [place] 300 mg sers 00 :00 once every Me dical month for Branch 90 days. QUEtiapine 2021-2021- No [id number] 50mg Take 1 Un [place] 50 mg 01-17- tablet by ity of tablet 00:00: 00:00 mouth in [place] 00 :00 the Medical morning Branch and 1 tablet in the evening. Do all this for 60 days. QUEtiapine 2021-0 2021- No [id number] 50mg Take 1 Un [place] 50 mg 01-17- tablet by ity of tablet 00:00: 00:00 mouth in [place] 00 :00 the Medical morning Branch and 1 tablet in the evening. Do all this for 60 days. QUEtiapine 2021- No [id number] 50mg Take 1 Un [place] 50 mg 18 -08 tablet by ity of tablet 00:00: 00:00 mouth in [place] 00 :00 the Medical morning Branch and 1 tablet in the evening. Do all this for 60 days. QUEtiapine 2021- No [id number] 50mg Take 1 Un [place] 50 mg 18 -08 tablet by ity of tablet 00:00: 00:00 mouth in [place] 00 :00 the Medical morning Branch and 1 tablet in the evening. Do all this for 60 days. QUEtiapine 2021- No [id number] 50mg Take 1 Un [place] 50 mg 18 -08 tablet by ity of tablet 00:00: 00:00 mouth in [place] 00 :00 the Medical morning Branch and 1 tablet in the evening. Do all this for 60 days. lithium 2021- No [id number] 300mg Take 1 U nivers carbonate 12-07 tablet by ity of CR 300 mg 00:00: 04:59 mouth at [place] SR tablet 00 :00 bedtime Medical for 90 Branch days. lithium 2021- No [id number] 450mg Take 1 U nivers carbonate 12-07- tablet by ity of CR 450 mg 00:00: 04:59 mouth [place] SR tablet 00 :00 every Medical morning Branch for 90 days. lithium 2021- No [id number] 300mg Take 1 U nivers carbonate 12-07- tablet by ity of CR 300 mg 00:00: 04:59 mouth at [place] SR tablet 00 :00 bedtime Medical for 90 Branch days. lithium No [id number] 450mg Take 1 U nivers carbonate 12-07- tablet by ity of CR 450 mg 00:00: 04:59 mouth [place] SR tablet 00 :00 every Medical morning Branch for 90 days. lithium 2021- No [id number] 300mg Take 1 U nivers carbonate 12-07- tablet by ity of CR 300 mg 00:00: 04:59 mouth at [place] SR tablet 00 :00 bedtime Medical for 90 Branch days. lithium 2021- No [id number] 450mg Take 1 U nivers carbonate 12-07 tablet by ity of CR 450 mg 00:00: 04:59 mouth [place] SR tablet 00 :00 every Medical morning Branch for 90 days. lithium No [id number] 300mg Take 1 U nivers carbonate 12-07 tablet by ity of CR 300 mg 00:00: 04:59 mouth at [place] SR tablet 00 :00 bedtime Medical for 90 Branch days. lithium 2021- No [id number] 450mg Take 1 U nivers carbonate 12-07 tablet by ity of CR 450 mg 00:00: 04:59 mouth [place] SR tablet 00 :00 every Medical morning Branch for 90 days. lithium 2021- No [id number] 300mg Take 1 U nivers carbonate 12-07 tablet by ity of CR 300 mg 00:00: 04:59 mouth at [place] SR tablet 00 :00 bedtime Medical for 90 Branch days. lithium No [id number] 450mg Take 1 U nivers carbonate 12-07 tablet by ity of CR 450 mg 00:00: 04:59 mouth [place] SR tablet 00 :00 every Medical morning Branch for 90 days. miSOPROStoL Yes [id number] 200ug Take 1 Univers 200 mcg 4-29 tablet by ity of tablet 00:00: mouth SEE-INSTRU Medical CTIONS. Branch Take one tab the night before and one tab the morning of procedure miSOPROStoL Yes [id number] 200ug Take 1 Univers 200 mcg 4-29 tablet by ity of tablet 00:00: mouth SEE-INSTRU Medical CTIONS. Branch Take one tab the night before and one tab the morning of procedure miSOPROStoL Yes [id number] 200ug Take 1 Univers 200 mcg 4-29 tablet by ity of tablet 00:00: mouth SEE-INSTRU Medical CTIONS. Branch Take one tab the night before and one tab the morning of procedure miSOPROStoL Yes [id number] 200ug Take 1 Univers 200 mcg 4-29 tablet by ity of tablet 00:00: mouth SEE-INSTRU Medical CTIONS. Branch Take one tab the night before and one tab the morning of procedure miSOPROStoL Yes [id number] 200ug Take 1 Univers 200 mcg 4-29 tablet by ity of tablet 00:00: mouth [place] 00 SEE-INSTRU Medical CTIONS. Branch Take one tab the night before and one tab the morning of procedure miSOPROStoL Yes [id number] 200ug Take 1 Univers 200 mcg 4-29 tablet by ity of tablet 00:00: mouth [place] 00 SEE-INSTRU Medical CTIONS. Branch Take one tab the night before and one tab the morning of procedure miSOPROStoL Yes [id number] 200ug Take 1 Univers 200 mcg 4-29 tablet by ity of tablet 00:00: mouth [place] 00 SEE-INSTRU Medical CTIONS. Branch Take one tab the night before and one tab the morning of procedure miSOPROStoL Yes [id number] 200ug Take 1 Univers 200 mcg 4-29 tablet by ity of tablet 00:00: mouth [place] SEE-INSTR Medical CTIONS. Branch Take one tab the night before and one tab the morning of procedure miSOPROStoL Yes [id number] 200ug Take 1 Univers 200 mcg 4-29 tablet by ity of tablet 00:00: mouth [place] SEE-INSTRU Medical CTIONS. Branch Take one tab the night before and one tab the morning of procedure miSOPROStoL 2021- No [id number] 200ug Take 1 Univers 200 mcg 4-29 10-06 tablet by ity of tablet 00:00: 00:00 [facility] [place] 00 :00 SEE-INSTRU Medical CTIONS. Branch Take one tab the night before and one tab the morning of procedure miSOPROStoL 2021- No [id number] 200ug Take 1 Univers 200 mcg 4-29 10-06 tablet by ity of tablet 00:00: 00:00 [facility] [place] 00 :00 SEE-INSTRU Medical CTIONS. Branch Take one tab the night before and one tab the morning of procedure miSOPROStoL 2021- No [id number] 200ug Take 1 Univers 200 mcg 4-29 10-06 tablet by ity of tablet 00:00: 00:00 [facility] [place] 00 :00 SEE-INSTRU Medical CTIONS. Branch Take one tab the night before and one tab the morning of procedure miSOPROStoL 2021- No [id number] 200ug Take 1 Univers 200 mcg 4-29 10-06 tablet by ity of tablet 00:00: 00:00 [facility] 00 :00 SEE-INSTRU Medical CTIONS. Branch Take one tab the night before and one tab the morning of procedure miSOPROStoL 2021- No [id number] 200ug Take 1 Univers 200 mcg 4-29 10-06 tablet by ity of tablet 00:00: 00:00 [facility] 00 :00 SEE-INSTRU Medical CTIONS. Branch Take one tab the night before and one tab the morning of procedure miSOPROStoL 2021- No [id number] 200ug Take 1 Univers 200 mcg 4-29 10-06 tablet by ity of tablet 00:00: 00:00 [facility] 00 :00 SEE-INSTRU Medical CTIONS. Branch Take one tab the night before and one tab the morning of procedure miSOPROStoL 2021- No [id number] 200ug Take 1 Univers 200 mcg 4-29 10-06 tablet by ity of tablet 00:00: 00:00 [facility] 00 :00 SEE-INSTRU Medical CTIONS. Branch Take one tab the night before and one tab the morning of procedure miSOPROStoL 2021- No [id number] 200ug Take 1 Univers 200 mcg 4-29 10-06 tablet by ity of tablet 00:00: 00:00 [facility] 00 :00 SEE-INSTRU Medical CTIONS. Branch Take one tab the night before and one tab the morning of procedure miSOPROStoL 2021- No [id number] 200ug Take 1 Univers 200 mcg 4-29 10-06 tablet by ity of tablet 00:00: 00:00 [facility] 00 :00 SEE-INSTRU Medical CTIONS. Branch Take one tab the night before and one tab the morning of procedure miSOPROStoL 2021- No [id number] 200ug Take 1 Univers 200 mcg 4-29 10-06 tablet by ity of tablet 00:00: 00:00 [facility] 00 :00 SEE-INSTRU Medical CTIONS. Branch Take one tab the night before and one tab the morning of procedure miSOPROStoL 2021- No [id number] 200ug Take 1 Univers 200 mcg 4-29 10-06 tablet by ity of tablet 00:00: 00:00 [facility] 00 :00 SEE-INSTRU Medical CTIONS. Branch Take one tab the night before and one tab the morning of procedure miSOPROStoL 2021-2021- No [id number] 200ug Take 1 Univers 200 mcg 4-29 10-06 tablet by ity of tablet 00:00: 00:00 [facility] 00 :00 SEE-INSTRU Medical CTIONS. Branch Take one tab the night before and one tab the morning of procedure miSOPROStoL 2021-2021- No [id number] 200ug Take 1 Univers 200 mcg 4-29 10-06 tablet by ity of tablet 00:00: 00:00 [facility] 00 :00 SEE-INSTRU Medical CTIONS. Branch Take one tab the night before and one tab the morning of procedure miSOPROStoL 2021- No [id number] 200ug Take 1 Univers 200 mcg 4-29 10-06 tablet by ity of tablet 00:00: 00:00 [facility] 00 :00 SEE-INSTRU Medical CTIONS. Branch Take one tab the night before and one tab the morning of procedure miSOPROStoL 2021- No [id number] 200ug Take 1 Univers 200 mcg 4-29 10-06 tablet by ity of tablet 00:00: 00:00 [facility] 00 :00 SEE-INSTRU Medical CTIONS. Branch Take one tab the night before and one tab the morning of procedure miSOPROStoL 2021-2021- No [id number] 200ug Take 1 Univers 200 mcg 4-29 10-06 tablet by ity of tablet 00:00: 00:00 [facility] 00 :00 SEE-INSTRU Medical CTIONS. Branch Take one tab the night before and one tab the morning of procedure miSOPROStoL 2021-2021- No [id number] 200ug Take 1 Univers 200 mcg 4-29 10-06 tablet by ity of tablet 00:00: 00:00 [facility] 00 :00 SEE-INSTRU Medical CTIONS. Branch Take one tab the night before and one tab the morning of procedure miSOPROStoL 2021-2021- No [id number] 200ug Take 1 Univers 200 mcg 4-29 10-06 tablet by ity of tablet 00:00: 00:00 [facility] 00 :00 SEE-INSTRU Medical CTIONS. Branch Take one tab the night before and one tab the morning of procedure Immunizations Ordered Immunization Filled Date Status Comments Sour ce Name Immunization Name SARS-COV-2 COVID-19 2022-03-17 Completed Unive rsity of MIKE-SUCROSE VACCINE 00:00:00 [facility] 12 YRS+, BIVALENT Branch 0.3ML, IM, (PFIZER ARITA TOP BOOSTER) SARS-COV-2 COVID-19 2022-03-17 Completed Unive rsity of MIKE-SUCROSE VACCINE 00:00:00 [facility] 12 YRS+, BIVALENT Branch 0.3ML, IM, (PFIZER ARITA TOP BOOSTER) SARS-COV-2 COVID-19 2022-03-17 Completed Unive rsity of MIKE-SUCROSE VACCINE 00:00:00 [facility] 12 YRS+, BIVALENT Branch 0.3ML, IM, (PFIZER ARITA TOP BOOSTER) SARS-COV-2 COVID-19 2022-03-17 Completed Unive rsity of MIKE-SUCROSE VACCINE 00:00:00 [facility] 12 YRS+, BIVALENT Branch 0.3ML, IM, (PFIZER ARITA TOP BOOSTER) SARS-COV-2 COVID-19 2022-03-17 Completed Unive rsity of MIKE-SUCROSE VACCINE 00:00:00 [facility] 12 YRS+, BIVALENT Branch 0.3ML, IM, (PFIZER ARITA TOP BOOSTER) SARS-COV-2 COVID-19 2022-03-17 Completed Unive rsity of MIKE-SUCROSE VACCINE 00:00:00 [facility] 12 YRS+, BIVALENT Branch 0.3ML, IM, (PFIZER ARITA TOP BOOSTER) SARS-COV-2 COVID-19 2022-03-17 Completed Unive rsity of MIKE-SUCROSE VACCINE 00:00:00 [facility] 12 YRS+, BIVALENT Branch 0.3ML, IM, (PFIZER ARITA TOP BOOSTER) SARS-COV-2 COVID-19 2022-03-17 Completed Unive rsity of MIKE-SUCROSE VACCINE 00:00:00 [facility] 12 YRS+, BIVALENT Branch 0.3ML, IM, (PFIZER ARITA TOP BOOSTER) SARS-COV-2 COVID-19 2022-03-17 Completed Unive rsity of MIKE-SUCROSE VACCINE 00:00:00 [facility] 12 YRS+, BIVALENT Branch 0.3ML, IM, (PFIZER ARITA TOP BOOSTER) SARS-COV-2 COVID-19 2022-03-17 Completed Unive rsity of MIKE-SUCROSE VACCINE 00:00:00 [facility] 12 YRS+, BIVALENT Branch 0.3ML, IM, (PFIZER ARITA TOP BOOSTER) SARS-COV-2 COVID-19 2022-03-17 Completed Unive rsity of MIKE-SUCROSE VACCINE 00:00:00 [facility] 12 YRS+, BIVALENT Branch 0.3ML, IM, (PFIZER ARITA TOP BOOSTER) SARS-COV-2 COVID-19 2022-03-17 Completed Unive rsity of MIKE-SUCROSE VACCINE 00:00:00 [facility] 14 YRS+, BIVALENT Branch 0.3ML, IM, (PFIZER ARITA TOP BOOSTER) SARS-COV-2 COVID-19 2022-03-17 Completed [facility] of MIKE-SUCROSE VACCINE 00:00:00 [facility] 12 YRS+, BIVALENT Branch 0.3ML, IM, (PFIZER ARITA TOP BOOSTER) SARS-COV-2 COVID-19 2022-03-17 Completed [facility] of MIKE-SUCROSE VACCINE 00:00:00 [facility] 12 YRS+, BIVALENT Branch 0.3ML, IM, (PFIZER ARITA TOP BOOSTER) SARS-COV-2 COVID-19 2022-03-17 Completed [facility] of MIKE-SUCROSE VACCINE 00:00:00 [facility] 12 YRS+, BIVALENT Branch 0.3ML, IM, (PFIZER ARITA TOP BOOSTER) SARS-COV-2 COVID-19 2022-03-17 Completed [facility] of MIKE-SUCROSE VACCINE 00:00:00 [facility] 12 YRS+, BIVALENT Branch 0.3ML, IM, (PFIZER ARITA TOP BOOSTER) SARS-COV-2 COVID-19 2022-03-17 Completed [facility] of MIKE-SUCROSE VACCINE 00:00:00 [facility] 12 YRS+, BIVALENT Branch 0.3ML, IM, (PFIZER ARITA TOP BOOSTER) SARS-COV-2 COVID-19 2022-03-17 Completed [facility] of MIKE-SUCROSE VACCINE 00:00:00 [facility] 12 YRS+, BIVALENT Branch 0.3ML, IM, (PFIZER ARITA TOP BOOSTER) SARS-COV-2 COVID-19 2022-03-17 Completed [facility] of MIKE-SUCROSE VACCINE 00:00:00 [facility] 12 YRS+, BIVALENT Branch 0.3ML, IM, (PFIZER ARITA TOP BOOSTER) SARS-COV-2 COVID-19 2022-03-17 Completed [facility] of MIKE-SUCROSE VACCINE 00:00:00 [facility] 12 YRS+, BIVALENT Branch 0.3ML, IM, (PFIZER ARITA TOP BOOSTER) SARS-COV-2 COVID-19 2022-03-17 Completed [facility] of MIKE-SUCROSE VACCINE 00:00:00 [facility] 12 YRS+, BIVALENT Branch 0.3ML, IM, (PFIZER ARITA TOP BOOSTER) SARS-COV-2 COVID-19 2022-03-17 Completed [facility] of MIKE-SUCROSE VACCINE 00:00:00 [facility] 12 YRS+, BIVALENT Branch 0.3ML, IM, (PFIZER ARITA TOP BOOSTER) SARS-COV-2 COVID-19 2022-03-17 Completed [facility] of MIKE-SUCROSE VACCINE 00:00:00 [facility] 12 YRS+, BIVALENT Branch 0.3ML, IM, (PFIZER ARITA TOP BOOSTER) SARS-COV-2 COVID-19 2022-03-17 Completed [facility] of MIKE-SUCROSE VACCINE 00:00:00 [facility] 12 YRS+, BIVALENT Branch 0.3ML, IM, (PFIZER ARITA TOP BOOSTER) SARS-COV-2 COVID-19 2022-03-17 Completed [facility] of MIKE-SUCROSE VACCINE 00:00:00 [facility] 12 YRS+, BIVALENT Branch 0.3ML, IM, (PFIZER ARITA TOP BOOSTER) SARS-COV-2 COVID-19 2022-03-17 Completed [facility] of MIKE-SUCROSE VACCINE 00:00:00 [facility] 12 YRS+, BIVALENT Branch 0.3ML, IM, (PFIZER ARITA TOP BOOSTER) SARS-COV-2 COVID-19 2022-03-17 Completed [facility] of MIKE-SUCROSE VACCINE 00:00:00 [facility] 12 YRS+, BIVALENT Branch 0.3ML, IM, (PFIZER ARITA TOP BOOSTER) SARS-COV-2 COVID-19 2022-03-17 Completed [facility] of MIKE-SUCROSE VACCINE 00:00:00 [facility] 12 YRS+, BIVALENT Branch 0.3ML, IM, (PFIZER ARITA TOP BOOSTER) SARS-COV-2 COVID-19 2022-03-17 Completed [facility] of MIKE-SUCROSE VACCINE 00:00:00 [facility] 12 YRS+, BIVALENT Branch 0.3ML, IM, (PFIZER ARITA TOP BOOSTER) SARS-COV-2 COVID-19 2022-03-17 Completed [facility] of MIKE-SUCROSE VACCINE 00:00:00 [facility] 12 YRS+, BIVALENT Branch 0.3ML, IM, (PFIZER ARITA TOP BOOSTER) SARS-COV-2 COVID-19 2022-03-17 Completed [facility] of MIKE-SUCROSE VACCINE 00:00:00 [facility] 12 YRS+, BIVALENT Branch 0.3ML, IM, (PFIZER ARITA TOP BOOSTER) SARS-COV-2 COVID-19 2022-03-17 Completed [facility] of MIKE-SUCROSE VACCINE 00:00:00 [facility] 12 YRS+, BIVALENT Branch 0.3ML, IM, (PFIZER ARITA TOP BOOSTER) SARS-COV-2 COVID-19 2022-03-17 Completed [facility] of MIKE-SUCROSE VACCINE 00:00:00 [facility] 12 YRS+, BIVALENT Branch 0.3ML, IM, (PFIZER ARITA TOP BOOSTER) SARS-COV-2 COVID-19 2022-03-17 Completed [facility] of MIKE-SUCROSE VACCINE 00:00:00 [facility] 12 YRS+, BIVALENT Branch 0.3ML, IM, (PFIZER ARITA TOP BOOSTER) SARS-COV-2 COVID-19 2022-03-17 Completed [facility] of MIKE-SUCROSE VACCINE 00:00:00 [facility] 12 YRS+, BIVALENT Branch 0.3ML, IM, (PFIZER ARITA TOP BOOSTER) SARS-COV-2 COVID-19 2022-03-17 Completed [facility] of MIKE-SUCROSE VACCINE 00:00:00 [facility] 12 YRS+, BIVALENT Branch 0.3ML, IM, (PFIZER ARITA TOP BOOSTER) SARS-COV-2 COVID-19 2022-03-17 Completed [facility] of MIKE-SUCROSE VACCINE 00:00:00 [facility] 12 YRS+, BIVALENT Branch 0.3ML, IM, (PFIZER ARITA TOP BOOSTER) SARS-COV-2 COVID-19 2022-03-17 Completed [facility] of MIKE-SUCROSE VACCINE 00:00:00 [facility] 12 YRS+, BIVALENT Branch 0.3ML, IM, (PFIZER ARITA TOP BOOSTER) SARS-COV-2 COVID-19 2022-03-17 Completed [facility] of MIKE-SUCROSE VACCINE 00:00:00 [facility] 12 YRS+, BIVALENT Branch 0.3ML, IM, (PFIZER ARITA TOP BOOSTER) SARS-COV-2 COVID-19 2022-03-17 Completed [facility] of MIKE-SUCROSE VACCINE 00:00:00 [facility] 12 YRS+, BIVALENT Branch 0.3ML, IM, (PFIZER ARITA TOP BOOSTER) SARS-COV-2 COVID-19 2022-03-17 Completed [facility] of MIKE-SUCROSE VACCINE 00:00:00 [facility] 12 YRS+, BIVALENT Branch 0.3ML, IM, (PFIZER ARITA TOP BOOSTER) SARS-COV-2 COVID-19 2022-03-17 Completed [facility] of MIKE-SUCROSE VACCINE 00:00:00 [facility] 12 YRS+, BIVALENT Branch 0.3ML, IM, (PFIZER ARITA TOP BOOSTER) SARS-COV-2 COVID-19 2022-03-17 Completed [facility] of MIKE-SUCROSE VACCINE 00:00:00 [facility] 12 YRS+, BIVALENT Branch 0.3ML, IM, (PFIZER ARITA TOP BOOSTER) SARS-COV-2 COVID-19 2022-03-17 Completed [facility] of MIKE-SUCROSE VACCINE 00:00:00 [facility] 12 YRS+, BIVALENT Branch 0.3ML, IM, (PFIZER ARITA TOP BOOSTER) SARS-COV-2 COVID-19 2022-03-17 Completed [facility] of MIKE-SUCROSE VACCINE 00:00:00 [facility] 12 YRS+, BIVALENT Branch 0.3ML, IM, (PFIZER ARITA TOP BOOSTER) SARS-COV-2 COVID-19 2022-03-17 Completed [facility] of MIKE-SUCROSE VACCINE 00:00:00 [facility] 12 YRS+, BIVALENT Branch 0.3ML, IM, (PFIZER ARITA TOP BOOSTER) SARS-COV-2 COVID-19 2022-03-17 Completed [facility] of MIKE-SUCROSE VACCINE 00:00:00 [facility] 12 YRS+, BIVALENT Branch 0.3ML, IM, (PFIZER ARITA TOP BOOSTER) SARS-COV-2 COVID-19 2022-03-17 Completed [facility] of MIKE-SUCROSE VACCINE 00:00:00 [facility] 12 YRS+, BIVALENT Branch 0.3ML, IM, (PFIZER ARITA TOP BOOSTER) SARS-COV-2 COVID-19 2022-03-17 Completed [facility] of MIKE-SUCROSE VACCINE 00:00:00 [facility] 12 YRS+, BIVALENT Branch 0.3ML, IM, (PFIZER ARITA TOP BOOSTER) SARS-COV-2 COVID-19 2022-03-17 Completed [facility] of MIKE-SUCROSE VACCINE 00:00:00 [facility] 12 YRS+, BIVALENT Branch 0.3ML, IM, (PFIZER ARITA TOP BOOSTER) SARS-COV-2 COVID-19 2022-03-17 Completed [facility] of IMKE-SUCROSE VACCINE 00:00:00 [facility] 12 YRS+, BIVALENT Branch 0.3ML, IM, (PFIZER ARITA TOP BOOSTER) SARS-COV-2 COVID-19 2022-03-17 Completed [facility] of MIKE-SUCROSE VACCINE 00:00:00 [facility] 12 YRS+, BIVALENT Branch 0.3ML, IM, (PFIZER ARITA TOP BOOSTER) SARS-COV-2 COVID-19 2022-03-17 Completed [facility] of MIKE-SUCROSE VACCINE 00:00:00 [facility] 12 YRS+, BIVALENT Branch 0.3ML, IM, (PFIZER ARITA TOP BOOSTER) SARS-COV-2 COVID-19 2022-03-17 Completed [facility] of MIKE-SUCROSE VACCINE 00:00:00 [facility] 12 YRS+, BIVALENT Branch 0.3ML, IM, (PFIZER ARITA TOP BOOSTER) SARS-COV-2 COVID-19 2022-03-17 Completed [facility] of MIKE-SUCROSE VACCINE 00:00:00 [facility] 12 YRS+, BIVALENT Branch 0.3ML, IM, (PFIZER ARITA TOP BOOSTER) SARS-COV-2 COVID-19 2022-03-17 Completed [facility] of MIKE-SUCROSE VACCINE 00:00:00 [facility] 12 YRS+, BIVALENT Branch 0.3ML, IM, (PFIZER ARITA TOP BOOSTER) SARS-COV-2 COVID-19 2022-03-17 Completed [facility] of MIKE-SUCROSE VACCINE 00:00:00 [facility] 12 YRS+, BIVALENT Branch 0.3ML, IM, (PFIZER ARITA TOP BOOSTER) SARS-COV-2 COVID-19 2022-03-17 Completed [facility] of MIKE-SUCROSE VACCINE 00:00:00 [facility] 12 YRS+, BIVALENT Branch 0.3ML, IM, (PFIZER ARITA TOP BOOSTER) SARS-COV-2 COVID-19 2022-03-17 Completed [facility] of MIKE-SUCROSE VACCINE 00:00:00 [facility] 12 YRS+, BIVALENT Branch 0.3ML, IM, (PFIZER ARITA TOP BOOSTER) SARS-COV-2 COVID-19 2022-03-17 Completed [facility] of MIKE-SUCROSE VACCINE 00:00:00 [facility] 12 YRS+, BIVALENT Branch 0.3ML, IM, (PFIZER ARITA TOP BOOSTER) SARS-COV-2 COVID-19 2022-03-17 Completed [facility] of MIKE-SUCROSE VACCINE 00:00:00 [facility] 12 YRS+, BIVALENT Branch 0.3ML, IM, (PFIZER ARITA TOP BOOSTER) SARS-COV-2 COVID-19 2022-03-17 Completed [facility] of MIKE-SUCROSE VACCINE 00:00:00 [facility] 12 YRS+, BIVALENT Branch 0.3ML, IM, (PFIZER ARITA TOP BOOSTER) SARS-COV-2 COVID-19 2022-03-17 Completed [facility] of MIKE-SUCROSE VACCINE 00:00:00 [facility] 12 YRS+, BIVALENT Branch 0.3ML, IM, (PFIZER ARITA TOP BOOSTER) SARS-COV-2 COVID-19 2022-03-17 Completed [facility]ity of MIKE-SUCROSE VACCINE 00:00:00 [facility] 12 YRS+, BIVALENT Branch 0.3ML, IM, (PFIZER ARITA TOP BOOSTER) SARS-COV-2 COVID-19 2022-03-17 Completed [facility]ity of MIKE-SUCROSE VACCINE 00:00:00 [facility] 12 YRS+, BIVALENT Branch 0.3ML, IM, (PFIZER ARITA TOP BOOSTER) SARS-COV-2 COVID-19 2022-03-17 Completed [facility]ity of MIKE-SUCROSE VACCINE 00:00:00 [facility] 12 YRS+, BIVALENT Branch 0.3ML, IM, (PFIZER ARITA TOP BOOSTER) SARS-COV-2 COVID-19 2022-03-17 Completed [facility]ity of MIKE-SUCROSE VACCINE 00:00:00 [facility] 12 YRS+, BIVALENT Branch 0.3ML, IM, (PFIZER ARITA TOP) SARS-COV-2 COVID-19 2022-03-17 Completed [facility]ity of MIKE-SUCROSE VACCINE 00:00:00 [facility] 12 YRS+, BIVALENT Branch 0.3ML, IM, (PFIZER ARITA TOP) SARS-COV-2 COVID-19 2022-03-17 Completed [facility]ity of MIKE-SUCROSE VACCINE 00:00:00 [facility] 12 YRS+, BIVALENT Branch 0.3ML, IM, (PFIZER ARITA TOP) SARS-COV-2 COVID-19 2022-03-17 Completed [facility]ity of MIKE-SUCROSE VACCINE 00:00:00 [facility] 12 YRS+, BIVALENT Branch 0.3ML, IM, (PFIZER ARITA TOP) SARS-COV-2 COVID-19 2022-03-17 Completed [facility] of MIKE-SUCROSE VACCINE 00:00:00 [facility] 12 YRS+, BIVALENT Branch 0.3ML, IM, (PFIZER ARITA TOP) SARS-COV-2 COVID-19 2022-03-17 Completed [facility]ity of MIKE-SUCROSE VACCINE 00:00:00 [facility] 12 YRS+, BIVALENT Branch 0.3ML, IM, (PFIZER ARITA TOP) SARS-COV-2 COVID-19 2022-03-17 Completed [facility]ity of MIKE-SUCROSE VACCINE 00:00:00 [facility] 12 YRS+, BIVALENT Branch 0.3ML, IM, (PFIZER ARITA TOP) SARS-COV-2 COVID-19 2022-03-17 Completed [facility]ity of MIKE-SUCROSE VACCINE 00:00:00 [facility] 12 YRS+, BIVALENT Branch 0.3ML, IM, (PFIZER ARITA TOP) SARS-COV-2 COVID-19 2022-03-17 Completed [facility]ity of MIKE-SUCROSE VACCINE 00:00:00 [facility] 12 YRS+, BIVALENT Branch 0.3ML, IM, (PFIZER ARITA TOP) SARS-COV-2 COVID-19 2022-03-17 Completed [facility] rsity of MIKE-SUCROSE VACCINE 00:00:00 [facility] 12 YRS+, BIVALENT Branch 0.3ML, IM, (PFIZER ARITA TOP) SARS-COV-2 COVID-19 2022-03-17 Completed [facility]ive rsity of MIKE-SUCROSE VACCINE 00:00:00 [facility] 12 YRS+, BIVALENT Branch 0.3ML, IM, (PFIZER ARITA TOP) SARS-COV-2 COVID-19 2022-03-17 Completed [facility]ity of MIKE-SUCROSE VACCINE 00:00:00 [facility] 12 YRS+, BIVALENT Branch 0.3ML, IM, (PFIZER ARITA TOP) SARS-COV-2 COVID-19 2022-03-17 Completed [facility] of MIKE-SUCROSE VACCINE 00:00:00 [facility] 12 YRS+, BIVALENT Branch 0.3ML, IM, (PFIZER ARITA TOP) SARS-COV-2 COVID-19 2022-03-17 Completed [facility] rsity of MIKE-SUCROSE VACCINE 00:00:00 [facility] 12 YRS+, BIVALENT Branch 0.3ML, IM, (PFIZER ARITA TOP) SARS-COV-2 COVID-19 2022-03-17 Completed [facility]ity of MIKE-SUCROSE VACCINE 00:00:00 [facility] 12 YRS+, BIVALENT Branch 0.3ML, IM, (PFIZER ARITA TOP) SARS-COV-2 COVID-19 2022-03-17 Completed [facility]ity of MIKE-SUCROSE VACCINE 00:00:00 [facility] 12 YRS+, BIVALENT Branch 0.3ML, IM, (PFIZER ARITA TOP) SARS-COV-2 COVID-19 2022-03-17 Completed [facility] of MIKE-SUCROSE VACCINE 00:00:00 [facility] 12 YRS+, BIVALENT Branch 0.3ML, IM, (PFIZER ARITA TOP) SARS-COV-2 COVID-19 2022-03-17 Completed [facility] rsity of MIKE-SUCROSE VACCINE 00:00:00 [facility] 12 YRS+, BIVALENT Branch 0.3ML, IM, (PFIZER ARITA TOP) SARS-COV-2 COVID-19 2022-03-17 Completed [facility] of MIKE-SUCROSE VACCINE 00:00:00 [facility] 12 YRS+, BIVALENT Branch 0.3ML, IM, (PFIZER ARITA TOP) SARS-COV-2 COVID-19 2022-03-17 Completed [facility] rsity of MIKE-SUCROSE VACCINE 00:00:00 [facility] 12 YRS+, BIVALENT Branch 0.3ML, IM, (PFIZER ARITA TOP) SARS-COV-2 COVID-19 2022-03-17 Completed [facility] of MIKE-SUCROSE VACCINE 00:00:00 [facility] 12 YRS+, BIVALENT Branch 0.3ML, IM, (PFIZER ARITA TOP) SARS-COV-2 COVID-19 2022-03-17 Completed [facility] rsity of MIKE-SUCROSE VACCINE 00:00:00 [facility] 12 YRS+, BIVALENT Branch 0.3ML, IM, (PFIZER ARITA TOP) SARS-COV-2 COVID-19 2022-03-17 Completed [facility] rsity of MIKE-SUCROSE VACCINE 00:00:00 [facility] 12 YRS+, BIVALENT Branch 0.3ML, IM, (PFIZER ARITA TOP) SARS-COV-2 COVID-19 2022-03-17 Completed [facility]ity of MIKE-SUCROSE VACCINE 00:00:00 [facility] 12 YRS+, BIVALENT Branch 0.3ML, IM, (PFIZER ARITA TOP) SARS-COV-2 COVID-19 2022-03-17 Completed [facility] of MIKE-SUCROSE VACCINE 00:00:00 [facility] 12 YRS+, BIVALENT Branch 0.3ML, IM, (PFIZER ARITA TOP) SARS-COV-2 COVID-19 2022-03-17 Completed [facility]ity of MIKE-SUCROSE VACCINE 00:00:00 [facility] 12 YRS+, BIVALENT Branch 0.3ML, IM, (PFIZER ARITA TOP) SARS-COV-2 COVID-19 2022-03-17 Completed [facility]ity of MIKE-SUCROSE VACCINE 00:00:00 [facility] 12 YRS+, BIVALENT Branch 0.3ML, IM, (PFIZER ARITA TOP) SARS-COV-2 COVID-19 2022-03-17 Completed [facility] of MIKE-SUCROSE VACCINE 00:00:00 [facility] 12 YRS+, BIVALENT Branch 0.3ML, IM, (PFIZER ARITA TOP) SARS-COV-2 COVID-19 2022-03-17 Completed [facility] of MIKE-SUCROSE VACCINE 00:00:00 [facility] 12 YRS+, BIVALENT Branch 0.3ML, IM, (PFIZER ARITA TOP) SARS-COV-2 COVID-19 2022-03-17 Completed [facility]ity of MIKE-SUCROSE VACCINE 00:00:00 [facility] 12 YRS+, BIVALENT Branch 0.3ML, IM, (PFIZER ARITA TOP) SARS-COV-2 COVID-19 2022-03-17 Completed [facility]ity of MIKE-SUCROSE VACCINE 00:00:00 [facility] 12 YRS+, BIVALENT Branch 0.3ML, IM, (PFIZER ARITA TOP) SARS-COV-2 COVID-19 2022-03-17 Completed [facility] of MIKE-SUCROSE VACCINE 00:00:00 [facility] 12 YRS+, BIVALENT Branch 0.3ML, IM, (PFIZER ARITA TOP) SARS-COV-2 COVID-19 2022-03-17 Completed [facility] of MIKE-SUCROSE VACCINE 00:00:00 [facility] 12 YRS+, BIVALENT Branch 0.3ML, IM, (PFIZER ARITA TOP) SARS-COV-2 COVID-19 2022-03-17 Completed [facility] of MIKE-SUCROSE VACCINE 00:00:00 [facility] 12 YRS+, BIVALENT Branch 0.3ML, IM, (PFIZER ARITA TOP) SARS-COV-2 COVID-19 2022-03-17 Completed [facility]ity of MIKE-SUCROSE VACCINE 00:00:00 [facility] 12 YRS+, BIVALENT Branch 0.3ML, IM, (PFIZER ARITA TOP) SARS-COV-2 COVID-19 2022-03-17 Completed [facility] of MIKE-SUCROSE VACCINE 00:00:00 [facility] 12 YRS+, BIVALENT Branch 0.3ML, IM, (PFIZER ARITA TOP) SARS-COV-2 COVID-19 2022-03-17 Completed [facility] of MIKE-SUCROSE VACCINE 00:00:00 [facility] 12 YRS+, BIVALENT Branch 0.3ML, IM, (PFIZER ARITA TOP) SARS-COV-2 COVID-19 2022-03-17 Completed [facility] of MIKE-SUCROSE VACCINE 00:00:00 [facility] 12 YRS+, BIVALENT Branch 0.3ML, IM, (PFIZER ARITA TOP) SARS-COV-2 COVID-19 2021-06-24 Completed [facility] of PFIZER VACCINE 00:00:00 [facility] SARS-COV-2 COVID-19 2021-06-24 Completed Unive rsity of PFIZER VACCINE 00:00:00 [facility] SARS-COV-2 COVID-19 2021-06-24 Completed [facility]ive rsity of PFIZER VACCINE 00:00:00 [facility] SARS-COV-2 COVID-19 2021-06-24 Completed [facility] rsity of PFIZER VACCINE 00:00:00 [facility] SARS-COV-2 COVID-19 2021-06-24 Completed [facility] of PFIZER VACCINE 00:00:00 [facility] SARS-COV-2 COVID-19 2021-06-24 Completed [facility] of PFIZER VACCINE 00:00:00 [facility] SARS-COV-2 COVID-19 2021-06-24 Completed [facility]ive rsity of PFIZER VACCINE 00:00:00 [facility] SARS-COV-2 COVID-19 2021-06-24 Completed [facility] rsity of PFIZER VACCINE 00:00:00 [facility] SARS-COV-2 COVID-19 2021-06-24 Completed [facility] of PFIZER VACCINE 00:00:00 [facility] SARS-COV-2 COVID-19 2021-06-24 Completed [facility] of PFIZER VACCINE 00:00:00 [facility] SARS-COV-2 COVID-19 2021-06-24 Completed [facility] rsity of PFIZER VACCINE 00:00:00 [facility] SARS-COV-2 COVID-19 2021-06-24 Completed [facility] of PFIZER VACCINE 00:00:00 [facility] SARS-COV-2 COVID-19 2021-06-24 Completed [facility] of PFIZER VACCINE 00:00:00 [facility] SARS-COV-2 COVID-19 2021-06-24 Completed [facility] of PFIZER VACCINE 00:00:00 [facility] SARS-COV-2 COVID-19 2021-06-24 Completed [facility] of PFIZER VACCINE 00:00:00 [facility] SARS-COV-2 COVID-19 2021-06-24 Completed [facility] of PFIZER VACCINE 00:00:00 [facility] SARS-COV-2 COVID-19 2021-06-24 Completed [facility] of PFIZER VACCINE 00:00:00 [facility] SARS-COV-2 COVID-19 2021-06-24 Completed [facility] of PFIZER VACCINE 00:00:00 [facility] SARS-COV-2 COVID-19 2021-06-24 Completed [facility] of PFIZER VACCINE 00:00:00 [facility] SARS-COV-2 COVID-19 2021-06-24 Completed [facility] of PFIZER VACCINE 00:00:00 [facility] SARS-COV-2 COVID-19 2021-06-24 Completed [facility] of PFIZER VACCINE 00:00:00 [facility] SARS-COV-2 COVID-19 2021-06-24 Completed [facility] of PFIZER VACCINE 00:00:00 [facility] SARS-COV-2 COVID-19 2021-06-24 Completed [facility] of PFIZER VACCINE 00:00:00 [facility] SARS-COV-2 COVID-19 2021-06-24 Completed [facility] of PFIZER VACCINE 00:00:00 [facility] SARS-COV-2 COVID-19 2021-06-24 Completed [facility] of PFIZER VACCINE 00:00:00 [facility] SARS-COV-2 COVID-19 2021-06-24 Completed [facility] of PFIZER VACCINE 00:00:00 [facility] SARS-COV-2 COVID-19 2021-06-24 Completed [facility] of PFIZER VACCINE 00:00:00 [facility] SARS-COV-2 COVID-19 2021-06-24 Completed [facility] of PFIZER VACCINE 00:00:00 [facility] SARS-COV-2 COVID-19 2021-06-24 Completed [facility] of PFIZER VACCINE 00:00:00 [facility] SARS-COV-2 COVID-19 2021-06-24 Completed [facility] of PFIZER VACCINE 00:00:00 [facility] SARS-COV-2 COVID-19 2021-06-24 Completed [facility] of PFIZER VACCINE 00:00:00 [facility] SARS-COV-2 COVID-19 2021-06-24 Completed [facility] of PFIZER VACCINE 00:00:00 [facility] SARS-COV-2 COVID-19 2021-06-24 Completed [facility]ive rsity of PFIZER VACCINE 00:00:00 [facility] SARS-COV-2 COVID-19 2021-06-24 Completed [facility]ity of PFIZER VACCINE 00:00:00 [facility] SARS-COV-2 COVID-19 2021-06-24 Completed [facility] of PFIZER VACCINE 00:00:00 [facility] SARS-COV-2 COVID-19 2021-06-24 Completed [facility] of PFIZER VACCINE 00:00:00 [facility] SARS-COV-2 COVID-19 2021-06-24 Completed [facility] of PFIZER VACCINE 00:00:00 [facility] SARS-COV-2 COVID-19 2021-06-24 Completed [facility]ity of PFIZER VACCINE 00:00:00 [facility] SARS-COV-2 COVID-19 2021-06-24 Completed [facility]ive [facility]ity of PFIZER VACCINE 00:00:00 [facility] SARS-COV-2 COVID-19 2021-06-24 Completed [facility] of PFIZER VACCINE 00:00:00 [facility] SARS-COV-2 COVID-19 2021-06-24 Completed [facility] of PFIZER VACCINE 00:00:00 [facility] SARS-COV-2 COVID-19 2021-06-24 Completed [facility] of PFIZER VACCINE 00:00:00 [facility] SARS-COV-2 COVID-19 2021-06-24 Completed [facility] of PFIZER VACCINE 00:00:00 [facility] SARS-COV-2 COVID-19 2021-06-24 Completed [facility] of PFIZER VACCINE 00:00:00 [facility] SARS-COV-2 COVID-19 2021-06-24 Completed [facility] of PFIZER VACCINE 00:00:00 [facility] SARS-COV-2 COVID-19 2021-06-24 Completed [facility] PFIZER VACCINE 00:00:00 [facility] SARS-COV-2 COVID-19 2021-06-24 Completed [facility] PFIZER VACCINE 00:00:00 [facility] SARS-COV-2 COVID-19 2021-06-24 Completed [facility] of PFIZER VACCINE 00:00:00 [facility] SARS-COV-2 COVID-19 2021-06-24 Completed [facility] of PFIZER VACCINE 00:00:00 [facility] SARS-COV-2 COVID-19 2021-06-24 Completed [facility] PFIZER VACCINE 00:00:00 [facility] SARS-COV-2 COVID-19 2021-06-24 Completed [facility] of PFIZER VACCINE 00:00:00 [facility] SARS-COV-2 COVID-19 2021-06-24 Completed [facility] PFIZER VACCINE 00:00:00 [facility] SARS-COV-2 COVID-19 2021-06-24 Completed [facility] PFIZER VACCINE 00:00:00 [facility] SARS-COV-2 COVID-19 2021-06-24 Completed [facility] PFIZER VACCINE 00:00:00 [facility] SARS-COV-2 COVID-19 2021-06-24 Completed [facility] PFIZER VACCINE 00:00:00 [facility] SARS-COV-2 COVID-19 2021-06-24 Completed [facility] PFIZER VACCINE 00:00:00 [facility] SARS-COV-2 COVID-19 2021-06-24 Completed [facility] PFIZER VACCINE 00:00:00 [facility] SARS-COV-2 COVID-19 2021-06-24 Completed [facility] PFIZER VACCINE 00:00:00 [facility] SARS-COV-2 COVID-19 2021-06-24 Completed [facility] PFIZER VACCINE 00:00:00 [facility] SARS-COV-2 COVID-19 2021-06-24 Completed Unive [facility] PFIZER VACCINE 00:00:00 [facility] SARS-COV-2 COVID-19 2021-06-24 Completed [facility] PFIZER VACCINE 00:00:00 [facility] SARS-COV-2 COVID-19 2021-06-24 Completed [facility] PFIZER VACCINE 00:00:00 [facility] SARS-COV-2 COVID-19 2021-06-24 Completed [facility] PFIZER VACCINE 00:00:00 [facility] SARS-COV-2 COVID-19 2021-06-24 Completed [facility] PFIZER VACCINE 00:00:00 [facility] SARS-COV-2 COVID-19 2021-06-24 Completed [facility] PFIZER VACCINE 00:00:00 [facility] SARS-COV-2 COVID-19 2021-06-24 Completed [facility] PFIZER VACCINE 00:00:00 [facility] SARS-COV-2 COVID-19 2021-06-24 Completed [facility] PFIZER VACCINE 00:00:00 [facility] SARS-COV-2 COVID-19 2021-06-24 Completed [facility] PFIZER VACCINE 00:00:00 [facility] SARS-COV-2 COVID-19 2021-06-24 Completed [facility] PFIZER VACCINE 00:00:00 [facility] SARS-COV-2 COVID-19 2021-06-24 Completed [facility] PFIZER VACCINE 00:00:00 [facility] SARS-COV-2 COVID-19 2021-06-24 Completed [facility] PFIZER VACCINE 00:00:00 [facility] SARS-COV-2 COVID-19 2021-06-24 Completed [facility] PFIZER VACCINE 00:00:00 [facility] SARS-COV-2 COVID-19 2021-06-24 Completed [facility] PFIZER VACCINE 00:00:00 [facility] SARS-COV-2 COVID-19 2021-06-24 Completed [facility] PFIZER VACCINE 00:00:00 [facility] SARS-COV-2 COVID-19 2021-06-24 Completed [facility] PFIZER VACCINE 00:00:00 [facility] SARS-COV-2 COVID-19 2021-06-24 Completed [facility] PFIZER VACCINE 00:00:00 [facility] SARS-COV-2 COVID-19 2021-06-24 Completed [facility] PFIZER VACCINE 00:00:00 [facility] SARS-COV-2 COVID-19 2021-06-24 Completed [facility] PFIZER VACCINE 00:00:00 [facility] SARS-COV-2 COVID-19 2021-06-24 Completed [facility] PFIZER VACCINE 00:00:00 [facility] SARS-COV-2 COVID-19 2021-06-24 Completed [facility] PFIZER VACCINE 00:00:00 [facility] SARS-COV-2 COVID-19 2021-06-24 Completed [facility] PFIZER VACCINE 00:00:00 [facility] SARS-COV-2 COVID-19 2021-06-24 Completed [facility] PFIZER VACCINE 00:00:00 [facility] SARS-COV-2 COVID-19 2021-06-24 Completed [facility] PFIZER VACCINE 00:00:00 [facility] SARS-COV-2 COVID-19 2021-06-24 Completed [facility] PFIZER VACCINE 00:00:00 [facility] SARS-COV-2 COVID-19 2021-06-24 Completed [facility] PFIZER VACCINE 00:00:00 [facility] SARS-COV-2 COVID-19 2021-06-24 Completed [facility] PFIZER VACCINE 00:00:00 [facility] SARS-COV-2 COVID-19 2021-06-24 Completed [facility] PFIZER VACCINE 00:00:00 [facility] SARS-COV-2 COVID-19 2021-06-24 Completed [facility] PFIZER VACCINE 00:00:00 [facility] SARS-COV-2 COVID-19 2021-06-24 Completed [facility] PFIZER VACCINE 00:00:00 [facility] SARS-COV-2 COVID-19 2021-06-24 Completed [facility] PFIZER VACCINE 00:00:00 [facility] SARS-COV-2 COVID-19 2021-06-24 Completed [facility] PFIZER VACCINE 00:00:00 [facility] SARS-COV-2 COVID-19 2021-06-24 Completed [facility] PFIZER VACCINE 00:00:00 [facility] SARS-COV-2 COVID-19 2021-06-24 Completed [facility] PFIZER VACCINE 00:00:00 [facility] SARS-COV-2 COVID-19 2021-06-24 Completed [facility] PFIZER VACCINE 00:00:00 [facility] SARS-COV-2 COVID-19 2021-06-24 Completed [facility] PFIZER VACCINE 00:00:00 [facility] SARS-COV-2 COVID-19 2021-06-24 Completed [facility] PFIZER VACCINE 00:00:00 [facility] SARS-COV-2 COVID-19 2021-06-24 Completed [facility] PFIZER VACCINE 00:00:00 [facility] SARS-COV-2 COVID-19 2021-06-24 Completed [facility] PFIZER VACCINE 00:00:00 [facility] SARS-COV-2 COVID-19 2021-06-24 Completed [facility] PFIZER VACCINE 00:00:00 [facility] SARS-COV-2 COVID-19 2021-06-24 Completed [facility] PFIZER VACCINE 00:00:00 [facility] SARS-COV-2 COVID-19 2021-06-24 Completed [facility] PFIZER VACCINE 00:00:00 [facility] SARS-COV-2 COVID-19 2021-06-24 Completed [facility] PFIZER VACCINE 00:00:00 [facility] SARS-COV-2 COVID-19 2021-06-24 Completed [facility] PFIZER VACCINE 00:00:00 [facility] SARS-COV-2 COVID-19 2021-06-24 Completed [facility] PFIZER VACCINE 00:00:00 [facility] SARS-COV-2 COVID-19 2021-06-24 Completed [facility] PFIZER VACCINE 00:00:00 [facility] SARS-COV-2 COVID-19 2020-11-21 Completed [facility] PFIZER VACCINE 00:00:00 [facility] SARS-COV-2 COVID-19 2020-11-21 Completed [facility] PFIZER VACCINE 00:00:00 [facility] SARS-COV-2 COVID-19 2020-11-21 Completed [facility] PFIZER VACCINE 00:00:00 [facility] SARS-COV-2 COVID-19 2020-11-21 Completed [facility] PFIZER VACCINE 00:00:00 [facility] SARS-COV-2 COVID-19 2020-11-21 Completed [facility] PFIZER VACCINE 00:00:00 [facility] SARS-COV-2 COVID-19 2020-11-21 Completed [facility] PFIZER VACCINE 00:00:00 [facility] SARS-COV-2 COVID-19 2020-11-21 Completed [facility] PFIZER VACCINE 00:00:00 [facility] SARS-COV-2 COVID-19 2020-11-21 Completed [facility] PFIZER VACCINE 00:00:00 [facility] SARS-COV-2 COVID-19 2020-11-21 Completed [facility] PFIZER VACCINE 00:00:00 [facility] SARS-COV-2 COVID-19 2020-11-21 Completed [facility] PFIZER VACCINE 00:00:00 [facility] SARS-COV-2 COVID-19 2020-11-21 Completed [facility] PFIZER VACCINE 00:00:00 [facility] SARS-COV-2 COVID-19 2020-11-21 Completed [facility] PFIZER VACCINE 00:00:00 [facility] SARS-COV-2 COVID-19 2020-11-21 Completed [facility] PFIZER VACCINE 00:00:00 [facility] SARS-COV-2 COVID-19 2020-11-21 Completed [facility] PFIZER VACCINE 00:00:00 [facility] SARS-COV-2 COVID-19 2020-11-21 Completed [facility] PFIZER VACCINE 00:00:00 [facility] SARS-COV-2 COVID-19 2020-11-21 Completed [facility] PFIZER VACCINE 00:00:00 [facility] SARS-COV-2 COVID-19 2020-11-21 Completed [facility] PFIZER VACCINE 00:00:00 [facility] SARS-COV-2 COVID-19 2020-11-21 Completed [facility] PFIZER VACCINE 00:00:00 [facility] SARS-COV-2 COVID-19 2020-11-21 Completed [facility] PFIZER VACCINE 00:00:00 [facility] SARS-COV-2 COVID-19 2020-11-21 Completed [facility] PFIZER VACCINE 00:00:00 [facility] SARS-COV-2 COVID-19 2020-11-21 Completed [facility] PFIZER VACCINE 00:00:00 [facility] SARS-COV-2 COVID-19 2020-11-21 Completed [facility] PFIZER VACCINE 00:00:00 [facility] SARS-COV-2 COVID-19 2020-11-21 Completed [facility] PFIZER VACCINE 00:00:00 [facility] SARS-COV-2 COVID-19 2020-11-21 Completed [facility] PFIZER VACCINE 00:00:00 [facility] SARS-COV-2 COVID-19 2020-11-21 Completed [facility] PFIZER VACCINE 00:00:00 [facility] SARS-COV-2 COVID-19 2020-11-21 Completed [facility] PFIZER VACCINE 00:00:00 [facility] SARS-COV-2 COVID-19 2020-11-21 Completed [facility] PFIZER VACCINE 00:00:00 [facility] SARS-COV-2 COVID-19 2020-11-21 Completed [facility] PFIZER VACCINE 00:00:00 [facility] SARS-COV-2 COVID-19 2020-11-21 Completed [facility] PFIZER VACCINE 00:00:00 [facility] SARS-COV-2 COVID-19 2020-11-21 Completed [facility] PFIZER VACCINE 00:00:00 [facility] SARS-COV-2 COVID-19 2020-11-21 Completed [facility] PFIZER VACCINE 00:00:00 [facility] SARS-COV-2 COVID-19 2020-11-21 Completed [facility] PFIZER VACCINE 00:00:00 [facility] SARS-COV-2 COVID-19 2020-11-21 Completed [facility] PFIZER VACCINE 00:00:00 [facility] SARS-COV-2 COVID-19 2020-11-21 Completed [facility] PFIZER VACCINE 00:00:00 [facility] SARS-COV-2 COVID-19 2020-11-21 Completed [facility] PFIZER VACCINE 00:00:00 [facility] SARS-COV-2 COVID-19 2020-11-21 Completed [facility] PFIZER VACCINE 00:00:00 [facility] SARS-COV-2 COVID-19 2020-11-21 Completed [facility] PFIZER VACCINE 00:00:00 [facility] SARS-COV-2 COVID-19 2020-11-21 Completed [facility] PFIZER VACCINE 00:00:00 [facility] SARS-COV-2 COVID-19 2020-11-21 Completed [facility] PFIZER VACCINE 00:00:00 [facility] SARS-COV-2 COVID-19 2020-11-21 Completed [facility] PFIZER VACCINE 00:00:00 [facility] SARS-COV-2 COVID-19 2020-11-21 Completed [facility] PFIZER VACCINE 00:00:00 [facility] SARS-COV-2 COVID-19 2020-11-21 Completed [facility] PFIZER VACCINE 00:00:00 [facility] SARS-COV-2 COVID-19 2020-11-21 Completed [facility] PFIZER VACCINE 00:00:00 [facility] SARS-COV-2 COVID-19 2020-11-21 Completed [facility] PFIZER VACCINE 00:00:00 [facility] SARS-COV-2 COVID-19 2020-11-21 Completed [facility] PFIZER VACCINE 00:00:00 [facility] SARS-COV-2 COVID-19 2020-11-21 Completed [facility] PFIZER VACCINE 00:00:00 [facility] SARS-COV-2 COVID-19 2020-11-21 Completed [facility] PFIZER VACCINE 00:00:00 [facility] SARS-COV-2 COVID-19 2020-11-21 Completed [facility] PFIZER VACCINE 00:00:00 [facility] SARS-COV-2 COVID-19 2020-11-21 Completed [facility] PFIZER VACCINE 00:00:00 [facility] SARS-COV-2 COVID-19 2020-11-21 Completed [facility] PFIZER VACCINE 00:00:00 [facility] SARS-COV-2 COVID-19 2020-11-21 Completed [facility] PFIZER VACCINE 00:00:00 [facility] SARS-COV-2 COVID-19 2020-11-21 Completed [facility] PFIZER VACCINE 00:00:00 [facility] SARS-COV-2 COVID-19 2020-11-21 Completed [facility] PFIZER VACCINE 00:00:00 [facility] SARS-COV-2 COVID-19 2020-11-21 Completed [facility] PFIZER VACCINE 00:00:00 [facility] SARS-COV-2 COVID-19 2020-11-21 Completed [facility] PFIZER VACCINE 00:00:00 [facility] SARS-COV-2 COVID-19 2020-11-21 Completed [facility] PFIZER VACCINE 00:00:00 [facility] SARS-COV-2 COVID-19 2020-11-21 Completed [facility] PFIZER VACCINE 00:00:00 [facility] SARS-COV-2 COVID-19 2020-11-21 Completed [facility] PFIZER VACCINE 00:00:00 [facility] SARS-COV-2 COVID-19 2020-11-21 Completed [facility] PFIZER VACCINE 00:00:00 [facility] SARS-COV-2 COVID-19 2020-11-21 Completed [facility] PFIZER VACCINE 00:00:00 [facility] SARS-COV-2 COVID-19 2020-11-21 Completed [facility] PFIZER VACCINE 00:00:00 [facility] SARS-COV-2 COVID-19 2020-11-21 Completed [facility] PFIZER VACCINE 00:00:00 [facility] SARS-COV-2 COVID-19 2020-11-21 Completed [facility] PFIZER VACCINE 00:00:00 [facility] SARS-COV-2 COVID-19 2020-11-21 Completed [facility] PFIZER VACCINE 00:00:00 [facility] SARS-COV-2 COVID-19 2020-11-21 Completed [facility] PFIZER VACCINE 00:00:00 [facility] SARS-COV-2 COVID-19 2020-11-21 Completed [facility] PFIZER VACCINE 00:00:00 [facility] SARS-COV-2 COVID-19 2020-11-21 Completed [facility] PFIZER VACCINE 00:00:00 [facility] SARS-COV-2 COVID-19 2020-11-21 Completed [facility] PFIZER VACCINE 00:00:00 [facility] SARS-COV-2 COVID-19 2020-11-21 Completed [facility] PFIZER VACCINE 00:00:00 [facility] SARS-COV-2 COVID-19 2020-11-21 Completed [facility] PFIZER VACCINE 00:00:00 [facility] SARS-COV-2 COVID-19 2020-11-21 Completed [facility] PFIZER VACCINE 00:00:00 [facility] SARS-COV-2 COVID-19 2020-11-21 Completed [facility] PFIZER VACCINE 00:00:00 [facility] SARS-COV-2 COVID-19 2020-11-21 Completed [facility] PFIZER VACCINE 00:00:00 [facility] SARS-COV-2 COVID-19 2020-11-21 Completed [facility] PFIZER VACCINE 00:00:00 [facility] SARS-COV-2 COVID-19 2020-11-21 Completed [facility] PFIZER VACCINE 00:00:00 [facility] SARS-COV-2 COVID-19 2020-11-21 Completed [facility] PFIZER VACCINE 00:00:00 [facility] SARS-COV-2 COVID-19 2020-11-21 Completed [facility] PFIZER VACCINE 00:00:00 [facility] SARS-COV-2 COVID-19 2020-11-21 Completed [facility] PFIZER VACCINE 00:00:00 [facility] SARS-COV-2 COVID-19 2020-11-21 Completed [facility] PFIZER VACCINE 00:00:00 [facility] SARS-COV-2 COVID-19 2020-11-21 Completed [facility] PFIZER VACCINE 00:00:00 [facility] SARS-COV-2 COVID-19 2020-11-21 Completed [facility] PFIZER VACCINE 00:00:00 [facility] SARS-COV-2 COVID-19 2020-11-21 Completed [facility] PFIZER VACCINE 00:00:00 [facility] SARS-COV-2 COVID-19 2020-11-21 Completed [facility] PFIZER VACCINE 00:00:00 [facility] SARS-COV-2 COVID-19 2020-11-21 Completed [facility] PFIZER VACCINE 00:00:00 [facility] SARS-COV-2 COVID-19 2020-11-21 Completed [facility] PFIZER VACCINE 00:00:00 [facility] SARS-COV-2 COVID-19 2020-11-21 Completed [facility] PFIZER VACCINE 00:00:00 [facility] SARS-COV-2 COVID-19 2020-11-21 Completed [facility] PFIZER VACCINE 00:00:00 [facility] SARS-COV-2 COVID-19 2020-11-21 Completed [facility] PFIZER VACCINE 00:00:00 [facility] SARS-COV-2 COVID-19 2020-11-21 Completed [facility] PFIZER VACCINE 00:00:00 [facility] SARS-COV-2 COVID-19 2020-11-21 Completed [facility] PFIZER VACCINE 00:00:00 [facility] SARS-COV-2 COVID-19 2020-11-21 Completed [facility] PFIZER VACCINE 00:00:00 [facility] SARS-COV-2 COVID-19 2020-11-21 Completed [facility] PFIZER VACCINE 00:00:00 [facility] SARS-COV-2 COVID-19 2020-11-21 Completed [facility] PFIZER VACCINE 00:00:00 [facility] SARS-COV-2 COVID-19 2020-11-21 Completed [facility] PFIZER VACCINE 00:00:00 [facility] SARS-COV-2 COVID-19 2020-11-21 Completed [facility] PFIZER VACCINE 00:00:00 [facility] SARS-COV-2 COVID-19 2020-11-21 Completed [facility] PFIZER VACCINE 00:00:00 [facility] SARS-COV-2 COVID-19 2020-11-21 Completed [facility] PFIZER VACCINE 00:00:00 [facility] SARS-COV-2 COVID-19 2020-11-21 Completed [facility] PFIZER VACCINE 00:00:00 [facility] SARS-COV-2 COVID-19 2020-11-21 Completed [facility] PFIZER VACCINE 00:00:00 [facility] SARS-COV-2 COVID-19 2020-11-21 Completed [facility] PFIZER VACCINE 00:00:00 [facility] SARS-COV-2 COVID-19 2020-11-21 Completed [facility] PFIZER VACCINE 00:00:00 [facility] SARS-COV-2 COVID-19 2020-11-21 Completed [facility] PFIZER VACCINE 00:00:00 [facility] SARS-COV-2 COVID-19 2020-11-21 Completed [facility] PFIZER VACCINE 00:00:00 [facility] SARS-COV-2 COVID-19 2020-11-21 Completed [facility] PFIZER VACCINE 00:00:00 [facility] SARS-COV-2 COVID-19 2020-11-21 Completed [facility] PFIZER VACCINE 00:00:00 [facility] SARS-COV-2 COVID-19 2020-10-24 Completed [facility] PFIZER VACCINE 00:00:00 [facility] SARS-COV-2 COVID-19 2020-10-24 Completed [facility] PFIZER VACCINE 00:00:00 [facility] SARS-COV-2 COVID-19 2020-10-24 Completed [facility] PFIZER VACCINE 00:00:00 [facility] SARS-COV-2 COVID-19 2020-10-24 Completed [facility] PFIZER VACCINE 00:00:00 [facility] SARS-COV-2 COVID-19 2020-10-24 Completed [facility] PFIZER VACCINE 00:00:00 [facility] SARS-COV-2 COVID-19 2020-10-24 Completed [facility] PFIZER VACCINE 00:00:00 [facility] SARS-COV-2 COVID-19 2020-10-24 Completed [facility] PFIZER VACCINE 00:00:00 [facility] SARS-COV-2 COVID-19 2020-10-24 Completed [facility] PFIZER VACCINE 00:00:00 [facility] SARS-COV-2 COVID-19 2020-10-24 Completed [facility] PFIZER VACCINE 00:00:00 [facility] SARS-COV-2 COVID-19 2020-10-24 Completed [facility] PFIZER VACCINE 00:00:00 [facility] SARS-COV-2 COVID-19 2020-10-24 Completed [facility] PFIZER VACCINE 00:00:00 [facility] SARS-COV-2 COVID-19 2020-10-24 Completed [facility] PFIZER VACCINE 00:00:00 [facility] SARS-COV-2 COVID-19 2020-10-24 Completed [facility] PFIZER VACCINE 00:00:00 [facility] SARS-COV-2 COVID-19 2020-10-24 Completed [facility] PFIZER VACCINE 00:00:00 [facility] SARS-COV-2 COVID-19 2020-10-24 Completed [facility] PFIZER VACCINE 00:00:00 [facility] SARS-COV-2 COVID-19 2020-10-24 Completed [facility] PFIZER VACCINE 00:00:00 [facility] SARS-COV-2 COVID-19 2020-10-24 Completed [facility] PFIZER VACCINE 00:00:00 [facility] SARS-COV-2 COVID-19 2020-10-24 Completed [facility] PFIZER VACCINE 00:00:00 [facility] SARS-COV-2 COVID-19 2020-10-24 Completed [facility] PFIZER VACCINE 00:00:00 [facility] SARS-COV-2 COVID-19 2020-10-24 Completed [facility] PFIZER VACCINE 00:00:00 [facility] SARS-COV-2 COVID-19 2020-10-24 Completed [facility] PFIZER VACCINE 00:00:00 [facility] SARS-COV-2 COVID-19 2020-10-24 Completed [facility] PFIZER VACCINE 00:00:00 [facility] SARS-COV-2 COVID-19 2020-10-24 Completed [facility] PFIZER VACCINE 00:00:00 [facility] SARS-COV-2 COVID-19 2020-10-24 Completed [facility] PFIZER VACCINE 00:00:00 [facility] SARS-COV-2 COVID-19 2020-10-24 Completed [facility] PFIZER VACCINE 00:00:00 [facility] SARS-COV-2 COVID-19 2020-10-24 Completed [facility] PFIZER VACCINE 00:00:00 [facility] SARS-COV-2 COVID-19 2020-10-24 Completed [facility] PFIZER VACCINE 00:00:00 [facility] SARS-COV-2 COVID-19 2020-10-24 Completed [facility] PFIZER VACCINE 00:00:00 [facility] SARS-COV-2 COVID-19 2020-10-24 Completed [facility] PFIZER VACCINE 00:00:00 [facility] SARS-COV-2 COVID-19 2020-10-24 Completed [facility] PFIZER VACCINE 00:00:00 [facility] SARS-COV-2 COVID-19 2020-10-24 Completed [facility] PFIZER VACCINE 00:00:00 [facility] SARS-COV-2 COVID-19 2020-10-24 Completed [facility] PFIZER VACCINE 00:00:00 [facility] SARS-COV-2 COVID-19 2020-10-24 Completed [facility] PFIZER VACCINE 00:00:00 [facility] SARS-COV-2 COVID-19 2020-10-24 Completed [facility] PFIZER VACCINE 00:00:00 [facility] SARS-COV-2 COVID-19 2020-10-24 Completed [facility] PFIZER VACCINE 00:00:00 [facility] SARS-COV-2 COVID-19 2020-10-24 Completed [facility] PFIZER VACCINE 00:00:00 [facility] SARS-COV-2 COVID-19 2020-10-24 Completed [facility] PFIZER VACCINE 00:00:00 [facility] SARS-COV-2 COVID-19 2020-10-24 Completed [facility] PFIZER VACCINE 00:00:00 [facility] SARS-COV-2 COVID-19 2020-10-24 Completed [facility] PFIZER VACCINE 00:00:00 [facility] SARS-COV-2 COVID-19 2020-10-24 Completed [facility] PFIZER VACCINE 00:00:00 [facility] SARS-COV-2 COVID-19 2020-10-24 Completed [facility] PFIZER VACCINE 00:00:00 [facility] SARS-COV-2 COVID-19 2020-10-24 Completed [facility] PFIZER VACCINE 00:00:00 [facility] SARS-COV-2 COVID-19 2020-10-24 Completed [facility] PFIZER VACCINE 00:00:00 [facility] SARS-COV-2 COVID-19 2020-10-24 Completed [facility] PFIZER VACCINE 00:00:00 [facility] SARS-COV-2 COVID-19 2020-10-24 Completed [facility] PFIZER VACCINE 00:00:00 [facility] SARS-COV-2 COVID-19 2020-10-24 Completed [facility] PFIZER VACCINE 00:00:00 [facility] SARS-COV-2 COVID-19 2020-10-24 Completed [facility] PFIZER VACCINE 00:00:00 [facility] SARS-COV-2 COVID-19 2020-10-24 Completed [facility] PFIZER VACCINE 00:00:00 [facility] SARS-COV-2 COVID-19 2020-10-24 Completed [facility] PFIZER VACCINE 00:00:00 [facility] SARS-COV-2 COVID-19 2020-10-24 Completed [facility] PFIZER VACCINE 00:00:00 [facility] SARS-COV-2 COVID-19 2020-10-24 Completed [facility] PFIZER VACCINE 00:00:00 [facility] SARS-COV-2 COVID-19 2020-10-24 Completed [facility] PFIZER VACCINE 00:00:00 [facility] SARS-COV-2 COVID-19 2020-10-24 Completed [facility] PFIZER VACCINE 00:00:00 [facility] SARS-COV-2 COVID-19 2020-10-24 Completed [facility] PFIZER VACCINE 00:00:00 [facility] SARS-COV-2 COVID-19 2020-10-24 Completed [facility] PFIZER VACCINE 00:00:00 [facility] SARS-COV-2 COVID-19 2020-10-24 Completed [facility] PFIZER VACCINE 00:00:00 [facility] SARS-COV-2 COVID-19 2020-10-24 Completed [facility] PFIZER VACCINE 00:00:00 [facility] SARS-COV-2 COVID-19 2020-10-24 Completed [facility] PFIZER VACCINE 00:00:00 [facility] SARS-COV-2 COVID-19 2020-10-24 Completed [facility] PFIZER VACCINE 00:00:00 [facility] SARS-COV-2 COVID-19 2020-10-24 Completed [facility] PFIZER VACCINE 00:00:00 [facility] SARS-COV-2 COVID-19 2020-10-24 Completed [facility] PFIZER VACCINE 00:00:00 [facility] SARS-COV-2 COVID-19 2020-10-24 Completed [facility] PFIZER VACCINE 00:00:00 [facility] SARS-COV-2 COVID-19 2020-10-24 Completed [facility] PFIZER VACCINE 00:00:00 [facility] SARS-COV-2 COVID-19 2020-10-24 Completed [facility] PFIZER VACCINE 00:00:00 [facility] SARS-COV-2 COVID-19 2020-10-24 Completed [facility] PFIZER VACCINE 00:00:00 [facility] SARS-COV-2 COVID-19 2020-10-24 Completed [facility] PFIZER VACCINE 00:00:00 [facility] SARS-COV-2 COVID-19 2020-10-24 Completed [facility] PFIZER VACCINE 00:00:00 [facility] SARS-COV-2 COVID-19 2020-10-24 Completed [facility] PFIZER VACCINE 00:00:00 [facility] SARS-COV-2 COVID-19 2020-10-24 Completed [facility] PFIZER VACCINE 00:00:00 [facility] SARS-COV-2 COVID-19 2020-10-24 Completed [facility] PFIZER VACCINE 00:00:00 [facility] SARS-COV-2 COVID-19 2020-10-24 Completed [facility] PFIZER VACCINE 00:00:00 [facility] SARS-COV-2 COVID-19 2020-10-24 Completed [facility] PFIZER VACCINE 00:00:00 [facility] SARS-COV-2 COVID-19 2020-10-24 Completed [facility] PFIZER VACCINE 00:00:00 [facility] SARS-COV-2 COVID-19 2020-10-24 Completed [facility] PFIZER VACCINE 00:00:00 [facility] SARS-COV-2 COVID-19 2020-10-24 Completed [facility] PFIZER VACCINE 00:00:00 [facility] SARS-COV-2 COVID-19 2020-10-24 Completed [facility] PFIZER VACCINE 00:00:00 [facility] SARS-COV-2 COVID-19 2020-10-24 Completed [facility] PFIZER VACCINE 00:00:00 [facility] SARS-COV-2 COVID-19 2020-10-24 Completed [facility] PFIZER VACCINE 00:00:00 [facility] SARS-COV-2 COVID-19 2020-10-24 Completed [facility] PFIZER VACCINE 00:00:00 [facility] SARS-COV-2 COVID-19 2020-10-24 Completed [facility] PFIZER VACCINE 00:00:00 [facility] SARS-COV-2 COVID-19 2020-10-24 Completed [facility] PFIZER VACCINE 00:00:00 [facility] SARS-COV-2 COVID-19 2020-10-24 Completed [facility] PFIZER VACCINE 00:00:00 [facility] SARS-COV-2 COVID-19 2020-10-24 Completed [facility] PFIZER VACCINE 00:00:00 [facility] SARS-COV-2 COVID-19 2020-10-24 Completed [facility] PFIZER VACCINE 00:00:00 [facility] SARS-COV-2 COVID-19 2020-10-24 Completed [facility] PFIZER VACCINE 00:00:00 [facility] SARS-COV-2 COVID-19 2020-10-24 Completed [facility] PFIZER VACCINE 00:00:00 [facility] SARS-COV-2 COVID-19 2020-10-24 Completed [facility] PFIZER VACCINE 00:00:00 [facility] SARS-COV-2 COVID-19 2020-10-24 Completed [facility] PFIZER VACCINE 00:00:00 [facility] SARS-COV-2 COVID-19 2020-10-24 Completed [facility] PFIZER VACCINE 00:00:00 [facility] SARS-COV-2 COVID-19 2020-10-24 Completed [facility] PFIZER VACCINE 00:00:00 [facility] SARS-COV-2 COVID-19 2020-10-24 Completed [facility] PFIZER VACCINE 00:00:00 [facility] SARS-COV-2 COVID-19 2020-10-24 Completed [facility] PFIZER VACCINE 00:00:00 [facility] SARS-COV-2 COVID-19 2020-10-24 Completed [facility] PFIZER VACCINE 00:00:00 [facility] SARS-COV-2 COVID-19 2020-10-24 Completed [facility] PFIZER VACCINE 00:00:00 [facility] SARS-COV-2 COVID-19 2020-10-24 Completed [facility] PFIZER VACCINE 00:00:00 [facility] SARS-COV-2 COVID-19 2020-10-24 Completed [facility] PFIZER VACCINE 00:00:00 [facility] SARS-COV-2 COVID-19 2020-10-24 Completed [facility] PFIZER VACCINE 00:00:00 [facility] SARS-COV-2 COVID-19 2020-10-24 Completed [facility] PFIZER VACCINE 00:00:00 [facility] SARS-COV-2 COVID-19 2020-10-24 Completed [facility] PFIZER VACCINE 00:00:00 [facility] SARS-COV-2 COVID-19 2020-10-24 Completed [facility] PFIZER VACCINE 00:00:00 [facility] SARS-COV-2 COVID-19 2020-10-24 Completed [facility] PFIZER VACCINE 00:00:00 [facility] SARS-COV-2 COVID-19 2020-10-24 Completed [facility] PFIZER VACCINE 00:00:00 [facility] SARS-COV-2 COVID-19 2020-10-24 Completed [facility] PFIZER VACCINE 00:00:00 [facility] SARS-COV-2 COVID-19 2020-10-24 Completed [facility] PFIZER VACCINE 00:00:00 [facility] SARS-COV-2 COVID-19 2020-10-24 Completed [facility] PFIZER VACCINE 00:00:00 [facility] Influenza Virus 2020-07-08 Completed [facility] of [...] y of Vaccine Quad .5 mL 00:00:00 [facility] Influenza Virus [...] y of Vaccine Quad .5 mL 00:00:00 [facility] Influenza Virus 2020-07-08 Completed [facility] Vaccine Quad .5 mL 00:00:00 [facility] Influenza Virus 2020-07-08 Completed [facility] Vaccine Quad .5 mL 00:00:00 [facility] Influenza Virus 2020-07-08 Completed [facility] Vaccine Quad .5 mL 00:00:00 [facility] Influenza Virus 2020-07-08 Completed [facility] Vaccine Quad .5 mL 00:00:00 [facility] Influenza Virus 2020-07-08 Completed [facility] Vaccine Quad .5 mL 00:00:00 [facility] Influenza Virus 2020-07-08 Completed [facility] Vaccine Quad .5 mL 00:00:00 [facility] 6+ MO [facility] Influenza Virus 2020-07-08 Completed [facility] Vaccine Quad .5 mL 00:00:00 [facility] Influenza Virus 2020-07-08 Completed [facility] Vaccine Quad .5 mL 00:00:00 [facility] 6+ MO [facility] Influenza Virus 2020-07-08 Completed [facility] Vaccine Quad .5 mL 00:00:00 [facility] Influenza Virus 2020-07-08 Completed [facility] Vaccine Quad .5 mL 00:00:00 [facility] Influenza Virus 2020-07-08 Completed [facility] Vaccine Quad .5 mL 00:00:00 [facility] Influenza Virus 2020-07-08 Completed [facility] Vaccine Quad .5 mL 00:00:00 [facility] Influenza Virus 2020-07-08 Completed [facility] Vaccine Quad .5 mL 00:00:00 [facility] Influenza Virus 2020-07-08 Completed [facility] Vaccine Quad .5 mL 00:00:00 [facility] Influenza Virus 2020-07-08 Completed [facility] Vaccine Quad .5 mL 00:00:00 [facility] Influenza Virus 2020-07-08 Completed [facility] Vaccine Quad .5 mL 00:00:00 [facility] (FLUZONE/FLULAVAL/FL UARIX) Influenza [...] y of Vaccine Quad .5 mL 00:00:00 [facility] (FLUZONE/FLULAVAL/FL UARIX) Influenza Virus 2020-07-08 Completed [facility] Vaccine Quad .5 mL 00:00:00 [facility] (FLUZONE/FLULAVAL/FL UARIX) Influenza Virus 2020-07-08 Completed [facility] Vaccine Quad .5 mL 00:00:00 [facility] (FLUZONE/FLULAVAL/FL UARIX) Influenza Virus 2020-07-08 Completed [facility] Vaccine Quad .5 mL 00:00:00 [facility] 6+ MO [facility] (FLUZONE/FLULAVAL/FL UARIX) Meningococcal B, OMV 2018-10-31 Completed [facility] ers[facility] of 00:00:00 [facility] Meningococcal B, OMV 2018-10-31 Completed [facility] ers[facility] of 00:00:00 [facility] Meningococcal B, OMV 2018-10-31 Completed [facility] of 00:00:00 [facility] Meningococcal B, OMV 2018-10-31 Completed [facility] of 00:00:00 [facility] Meningococcal B, OMV 2018-10-31 Completed [facility] of 00:00:00 [facility] Meningococcal B, OMV 2018-10-31 Completed Univ ersity [...] 2018-10-31 Completed [facility] of 00:00:00 [facility] Influenza Virus 2018-08-29 Completed [facility] of Vaccine Quad .5 mL 00:00:00 [facility] IM 6+ MO [facility] Meningococcal B, OMV 2018-08-29 Completed [facility] of 00:00:00 [facility] Influenza Virus 2018-08-29 Completed [facility] Vaccine Quad .5 mL 00:00:00 [facility] Meningococcal B, OMV 2018-08-29 Completed [facility] of 00:00:00 [facility] Influenza Virus 2018-08-29 Completed [facility] Vaccine Quad .5 mL 00:00:00 [facility] Meningococcal B, OMV 2018-08-29 Completed [facility] of 00:00:00 [facility] Influenza Virus 2018-08-29 Completed [facility] Vaccine Quad .5 mL 00:00:00 [facility] Meningococcal B, OMV 2018-08-29 Completed [facility] of 00:00:00 [facility] Influenza Virus 2018-08-29 Completed [facility] Vaccine Quad .5 mL 00:00:00 [facility] Meningococcal B, OMV 2018-08-29 Completed [facility] of 00:00:00 [facility] Influenza Virus 2018-08-29 Completed [facility] Vaccine Quad .5 mL 00:00:00 [facility] Meningococcal B, OMV 2018-08-29 Completed [facility] of 00:00:00 [facility] Influenza Virus 2018-08-29 Completed [facility] Vaccine Quad .5 mL 00:00:00 [facility] Meningococcal B, OMV 2018-08-29 Completed [facility] of 00:00:00 [facility] Influenza Virus 2018-08-29 Completed [facility] Vaccine Quad .5 mL 00:00:00 [facility] Meningococcal B, OMV 2018-08-29 Completed [facility] of 00:00:00 [facility] Influenza Virus 2018-08-29 Completed [facility] Vaccine Quad .5 mL 00:00:00 [facility] Meningococcal B, OMV 2018-08-29 Completed [facility] of 00:00:00 [facility] Influenza Virus 2018-08-29 Completed [facility] Vaccine Quad .5 mL 00:00:00 [facility] Meningococcal B, OMV 2018-08-29 Completed [facility] of 00:00:00 [facility] Influenza Virus 2018-08-29 Completed [facility] Vaccine Quad .5 mL 00:00:00 [facility] Meningococcal B, OMV 2018-08-29 Completed [facility] of 00:00:00 [facility] Influenza Virus 2018-08-29 Completed [facility] Vaccine Quad .5 mL 00:00:00 [facility] Meningococcal B, OMV 2018-08-29 Completed [facility] of 00:00:00 [facility] Influenza Virus 2018-08-29 Completed [facility] Vaccine Quad .5 mL 00:00:00 [facility] Meningococcal B, OMV 2018-08-29 Completed [facility] of 00:00:00 [facility] Influenza Virus 2018-08-29 Completed [facility] of Vaccine Quad .5 mL 00:00:00 [facility] Meningococcal B, OMV 2018-08-29 Completed [facility] of 00:00:00 [facility] Influenza Virus 2018-08-29 Completed [facility] Vaccine Quad .5 mL 00:00:00 [facility] Meningococcal B, OMV 2018-08-29 Completed [facility] of 00:00:00 [facility] Influenza Virus 2018-08-29 Completed [facility] of Vaccine Quad .5 mL 00:00:00 [facility] Meningococcal B, OMV 2018-08-29 Completed [facility] of 00:00:00 [facility] Influenza Virus 2018-08-29 Completed [facility] of Vaccine Quad .5 mL 00:00:00 [facility] Meningococcal B, OMV 2018-08-29 Completed [facility] of 00:00:00 [facility] Influenza Virus 2018-08-29 Completed [facility] of Vaccine Quad .5 mL 00:00:00 [facility] Meningococcal B, OMV 2018-08-29 Completed [facility] of 00:00:00 [facility] Influenza Virus 2018-08-29 Completed [facility] Vaccine Quad .5 mL 00:00:00 [facility] Meningococcal B, OMV 2018-08-29 Completed [facility] of 00:00:00 [facility] Influenza Virus 2018-08-29 Completed [facility] of Vaccine Quad .5 mL 00:00:00 [facility] Meningococcal B, OMV 2018-08-29 Completed [facility] of 00:00:00 [facility] Influenza Virus 2018-08-29 Completed [facility] Vaccine Quad .5 mL 00:00:00 [facility] Meningococcal B, OMV 2018-08-29 Completed [facility] of 00:00:00 [facility] Influenza Virus 2018-08-29 Completed [facility] of Vaccine Quad .5 mL 00:00:00 [facility] Meningococcal B, OMV 2018-08-29 Completed [facility] of 00:00:00 [facility] Influenza Virus 2018-08-29 Completed [facility] Vaccine Quad .5 mL 00:00:00 [facility] Meningococcal B, OMV 2018-08-29 Completed [facility] of 00:00:00 [facility] Influenza Virus 2018-08-29 Completed [facility] Vaccine Quad .5 mL 00:00:00 [facility] Meningococcal B, OMV 2018-08-29 Completed [facility] of 00:00:00 [facility] Influenza Virus 2018-08-29 Completed [facility] of Vaccine Quad .5 mL 00:00:00 [facility] Meningococcal B, OMV 2018-08-29 Completed [facility] of 00:00:00 [facility] Influenza Virus 2018-08-29 Completed [facility] of Vaccine Quad .5 mL 00:00:00 [facility] Meningococcal B, OMV 2018-08-29 Completed [facility] of 00:00:00 [facility] Influenza Virus 2018-08-29 Completed [facility] of Vaccine Quad .5 mL 00:00:00 [facility] Meningococcal B, OMV 2018-08-29 Completed [facility] of 00:00:00 [facility] Influenza Virus 2018-08-29 Completed [facility] of Vaccine Quad .5 mL 00:00:00 [facility] Meningococcal B, OMV 2018-08-29 Completed [facility] of 00:00:00 [facility] Influenza Virus 2018-08-29 Completed [facility] of Vaccine Quad .5 mL 00:00:00 [facility] Meningococcal B, OMV 2018-08-29 Completed [facility] of 00:00:00 [facility] Influenza Virus 2018-08-29 Completed [facility] of Vaccine Quad .5 mL 00:00:00 [facility] Meningococcal B, OMV 2018-08-29 Completed [facility] of 00:00:00 [facility] Influenza Virus 2018-08-29 Completed [facility] of Vaccine Quad .5 mL 00:00:00 [facility] Meningococcal B, OMV 2018-08-29 Completed [facility] of 00:00:00 [facility] Influenza Virus 2018-08-29 Completed [facility] Vaccine Quad .5 mL 00:00:00 [facility] Meningococcal B, OMV 2018-08-29 Completed [facility] of 00:00:00 [facility] Influenza Virus 2018-08-29 Completed [facility] Vaccine Quad .5 mL 00:00:00 [facility] Meningococcal B, OMV 2018-08-29 Completed [facility] of 00:00:00 [facility] Influenza Virus 2018-08-29 Completed [facility] Vaccine Quad .5 mL 00:00:00 [facility] Meningococcal B, OMV 2018-08-29 Completed [facility] of 00:00:00 [facility] Influenza Virus 2018-08-29 Completed [facility] Vaccine Quad .5 mL 00:00:00 [facility] Meningococcal B, OMV 2018-08-29 Completed [facility] of 00:00:00 [facility] Influenza Virus 2018-08-29 Completed [facility] Vaccine Quad .5 mL 00:00:00 [facility] Meningococcal B, OMV 2018-08-29 Completed [facility] of 00:00:00 [facility] Influenza Virus 2018-08-29 Completed [facility] of Vaccine Quad .5 mL 00:00:00 [facility] Meningococcal B, OMV 2018-08-29 Completed [facility] of 00:00:00 [facility] Influenza Virus 2018-08-29 Completed [facility] Vaccine Quad .5 mL 00:00:00 [facility] Meningococcal B, OMV 2018-08-29 Completed [facility] of 00:00:00 [facility] Influenza Virus 2018-08-29 Completed [facility] of Vaccine Quad .5 mL 00:00:00 [facility] Meningococcal B, OMV 2018-08-29 Completed [facility] of 00:00:00 [facility] Influenza Virus 2018-08-29 Completed [facility] of Vaccine Quad .5 mL 00:00:00 [facility] Meningococcal B, OMV 2018-08-29 Completed [facility] of 00:00:00 [facility] Influenza Virus 2018-08-29 Completed [facility] of Vaccine Quad .5 mL 00:00:00 [facility] Meningococcal B, OMV 2018-08-29 Completed [facility] of 00:00:00 [facility] Influenza Virus 2018-08-29 Completed [facility] of Vaccine Quad .5 mL 00:00:00 [facility] Meningococcal B, OMV 2018-08-29 Completed [facility] of 00:00:00 [facility] Influenza Virus 2018-08-29 Completed [facility] Vaccine Quad .5 mL 00:00:00 [facility] Meningococcal B, OMV 2018-08-29 Completed [facility] of 00:00:00 [facility] Influenza Virus 2018-08-29 Completed [facility] of Vaccine Quad .5 mL 00:00:00 [facility] Meningococcal B, OMV 2018-08-29 Completed [facility] of 00:00:00 [facility] Influenza Virus 2018-08-29 Completed [facility] of Vaccine Quad .5 mL 00:00:00 [facility] Meningococcal B, OMV 2018-08-29 Completed [facility] of 00:00:00 [facility] Influenza Virus 2018-08-29 Completed [facility] of Vaccine Quad .5 mL 00:00:00 [facility] Meningococcal B, OMV 2018-08-29 Completed [facility] of 00:00:00 [facility] Influenza Virus 2018-08-29 Completed [facility] of Vaccine Quad .5 mL 00:00:00 [facility] Meningococcal B, OMV 2018-08-29 Completed [facility] of 00:00:00 [facility] Influenza Virus 2018-08-29 Completed [facility] of Vaccine Quad .5 mL 00:00:00 [facility] Meningococcal B, OMV 2018-08-29 Completed [facility] of 00:00:00 [facility] Influenza Virus 2018-08-29 Completed [facility] of Vaccine Quad .5 mL 00:00:00 [facility] Meningococcal B, OMV 2018-08-29 Completed [facility] of 00:00:00 [facility] Influenza Virus 2018-08-29 Completed [facility] of Vaccine Quad .5 mL 00:00:00 [facility] Meningococcal B, OMV 2018-08-29 Completed [facility] of 00:00:00 [facility] Influenza Virus 2018-08-29 Completed [facility] of Vaccine Quad .5 mL 00:00:00 [facility] Meningococcal B, OMV 2018-08-29 Completed [facility] of 00:00:00 [facility] Influenza Virus 2018-08-29 Completed [facility] of Vaccine Quad .5 mL 00:00:00 [facility] Meningococcal B, OMV 2018-08-29 Completed [facility] of 00:00:00 [facility] Influenza Virus 2018-08-29 Completed [facility] of Vaccine Quad .5 mL 00:00:00 [facility] Meningococcal B, OMV 2018-08-29 Completed [facility] of 00:00:00 [facility] Influenza Virus 2018-08-29 Completed [facility] of Vaccine Quad .5 mL 00:00:00 [facility] Meningococcal B, OMV 2018-08-29 Completed [facility] of 00:00:00 [facility] Influenza Virus 2018-08-29 Completed [facility] of Vaccine Quad .5 mL 00:00:00 [facility] Meningococcal B, OMV 2018-08-29 Completed [facility] of 00:00:00 [facility] Influenza Virus 2018-08-29 Completed [facility] of Vaccine Quad .5 mL 00:00:00 [facility] Meningococcal B, OMV 2018-08-29 Completed [facility] of 00:00:00 [facility] Influenza Virus 2018-08-29 Completed [facility] of Vaccine Quad .5 mL 00:00:00 [facility] Meningococcal B, OMV 2018-08-29 Completed [facility] of 00:00:00 [facility] Influenza Virus 2018-08-29 Completed [facility] Vaccine Quad .5 mL 00:00:00 [facility] Meningococcal B, OMV 2018-08-29 Completed [facility] 00:00:00 [facility] Influenza Virus 2018-08-29 Completed [facility] Vaccine Quad .5 mL 00:00:00 [facility] Meningococcal B, OMV 2018-08-29 Completed [facility] 00:00:00 [facility] Influenza Virus 2018-08-29 Completed [facility] Vaccine Quad .5 mL 00:00:00 [facility] Meningococcal B, OMV 2018-08-29 Completed [facility] 00:00:00 [facility] Influenza Virus 2018-08-29 Completed [facility] Vaccine Quad .5 mL 00:00:00 [facility] 6[facility] Meningococcal B, OMV 2018-08-29 Completed [facility] 00:00:00 [facility] Influenza Virus 2018-08-29 Completed [facility] Vaccine Quad .5 mL 00:00:00 [facility] 6[facility] Meningococcal B, OMV 2018-08-29 Completed [facility] 00:00:00 [facility] Influenza Virus 2018-08-29 Completed [facility] Vaccine Quad .5 mL 00:00:00 [facility] 6[facility] Meningococcal B, OMV 2018-08-29 Completed [facility] 00:00:00 [facility] Influenza Virus 2018-08-29 Completed [facility] Vaccine Quad .5 mL 00:00:00 [facility] Meningococcal B, OMV 2018-08-29 Completed [facility] 00:00:00 [facility] Influenza Virus 2018-08-29 Completed [facility] Vaccine Quad .5 mL 00:00:00 [facility] 6[facility] Meningococcal B, OMV 2018-08-29 Completed [facility] 00:00:00 [facility] Influenza Virus 2018-08-29 Completed [facility] Vaccine Quad .5 mL 00:00:00 [facility] 6[facility] Meningococcal B, OMV 2018-08-29 Completed [facility] 00:00:00 [facility] Influenza Virus 2018-08-29 Completed [facility] Vaccine Quad .5 mL 00:00:00 [facility] 6[facility] Meningococcal B, OMV 2018-08-29 Completed [facility] 00:00:00 [facility] Influenza Virus 2018-08-29 Completed [facility] Vaccine Quad .5 mL 00:00:00 [facility] Meningococcal B, OMV 2018-08-29 Completed [facility] 00:00:00 [facility] Influenza Virus 2018-08-29 Completed [facility] Vaccine Quad .5 mL 00:00:00 [facility] 6[facility] Meningococcal B, OMV 2018-08-29 Completed [facility] 00:00:00 [facility] Influenza Virus 2018-08-29 Completed [facility] Vaccine Quad .5 mL 00:00:00 [facility] Meningococcal B, OMV 2018-08-29 Completed [facility] 00:00:00 [facility] Influenza Virus 2018-08-29 Completed [facility] Vaccine Quad .5 mL 00:00:00 [facility] Meningococcal B, OMV 2018-08-29 Completed [facility] 00:00:00 [facility] Influenza Virus 2018-08-29 Completed [facility] Vaccine Quad .5 mL 00:00:00 [facility] Meningococcal B, OMV 2018-08-29 Completed [facility] 00:00:00 [facility] Influenza Virus 2018-08-29 Completed [facility] Vaccine Quad .5 mL 00:00:00 [facility] 6[facility] Meningococcal B, OMV 2018-08-29 Completed [facility] 00:00:00 [facility] Influenza Virus 2018-08-29 Completed [facility] Vaccine Quad .5 mL 00:00:00 [facility] 6[facility] Meningococcal B, OMV 2018-08-29 Completed [facility] 00:00:00 [facility] Influenza Virus 2018-08-29 Completed [facility] Vaccine Quad .5 mL 00:00:00 [facility] 6[facility] Meningococcal B, OMV 2018-08-29 Completed [facility] 00:00:00 [facility] Influenza Virus 2018-08-29 Completed [facility] Vaccine Quad .5 mL 00:00:00 [facility] 6[facility] Meningococcal B, OMV 2018-08-29 Completed [facility] 00:00:00 [facility] Influenza Virus 2018-08-29 Completed [facility] Vaccine Quad .5 mL 00:00:00 [facility] 6[facility] Meningococcal B, OMV 2018-08-29 Completed [facility] 00:00:00 [facility] Influenza Virus 2018-08-29 Completed [facility] Vaccine Quad .5 mL 00:00:00 [facility] Meningococcal B, OMV 2018-08-29 Completed [facility] 00:00:00 [facility] Influenza Virus 2018-08-29 Completed [facility] Vaccine Quad .5 mL 00:00:00 [facility] 6[facility] Meningococcal B, OMV 2018-08-29 Completed [facility] 00:00:00 [facility] Influenza Virus 2018-08-29 Completed [facility] Vaccine Quad .5 mL 00:00:00 [facility] Meningococcal B, OMV 2018-08-29 Completed [facility] 00:00:00 [facility] Influenza Virus 2018-08-29 Completed [facility] Vaccine Quad .5 mL 00:00:00 [facility] Meningococcal B, OMV 2018-08-29 Completed [facility] 00:00:00 [facility] Influenza Virus 2018-08-29 Completed [facility] Vaccine Quad .5 mL 00:00:00 [facility] 6[facility] Meningococcal B, OMV 2018-08-29 Completed [facility] 00:00:00 [facility] Influenza Virus 2018-08-29 Completed [facility] Vaccine Quad .5 mL 00:00:00 [facility] Meningococcal B, OMV 2018-08-29 Completed [facility] 00:00:00 [facility] Influenza Virus 2018-08-29 Completed [facility] Vaccine Quad .5 mL 00:00:00 [facility] 6[facility] Meningococcal B, OMV 2018-08-29 Completed [facility] 00:00:00 [facility] Influenza Virus 2018-08-29 Completed [facility] Vaccine Quad .5 mL 00:00:00 [facility] Meningococcal B, OMV 2018-08-29 Completed [facility] 00:00:00 [facility] Influenza Virus 2018-08-29 Completed [facility] Vaccine Quad .5 mL 00:00:00 [facility] 6[facility] Meningococcal B, OMV 2018-08-29 Completed [facility] 00:00:00 [facility] Influenza Virus 2018-08-29 Completed [facility] Vaccine Quad .5 mL 00:00:00 [facility] 6[facility] Meningococcal B, OMV 2018-08-29 Completed [facility] 00:00:00 [facility] Influenza Virus 2018-08-29 Completed [facility] Vaccine Quad .5 mL 00:00:00 [facility] 6[facility] Meningococcal B, OMV 2018-08-29 Completed [facility] 00:00:00 [facility] Influenza Virus 2018-08-29 Completed [facility] Vaccine Quad .5 mL 00:00:00 [facility] 6[facility] Meningococcal B, OMV 2018-08-29 Completed [facility] 00:00:00 [facility] Influenza Virus 2018-08-29 Completed [facility] Vaccine Quad .5 mL 00:00:00 [facility] 6[facility] Meningococcal B, OMV 2018-08-29 Completed [facility] 00:00:00 [facility] Influenza Virus 2018-08-29 Completed [facility] Vaccine Quad .5 mL 00:00:00 [facility] 6[facility] Meningococcal B, OMV 2018-08-29 Completed [facility] 00:00:00 [facility] Influenza Virus 2018-08-29 Completed [facility] Vaccine Quad .5 mL 00:00:00 [facility] 6[facility] Meningococcal B, OMV 2018-08-29 Completed [facility] 00:00:00 [facility] Influenza Virus 2018-08-29 Completed [facility] Vaccine Quad .5 mL 00:00:00 [facility] 6[facility] Meningococcal B, OMV 2018-08-29 Completed [facility] 00:00:00 [facility] Influenza Virus 2018-08-29 Completed [facility] Vaccine Quad .5 mL 00:00:00 [facility] 6[facility] Meningococcal B, OMV 2018-08-29 Completed [facility] 00:00:00 [facility] Influenza Virus 2018-08-29 Completed [facility] Vaccine Quad .5 mL 00:00:00 [facility] 6[facility] Meningococcal B, OMV 2018-08-29 Completed [facility] 00:00:00 [facility] Influenza Virus 2018-08-29 Completed [facility] Vaccine Quad .5 mL 00:00:00 [facility] 6[facility] Meningococcal B, OMV 2018-08-29 Completed [facility] 00:00:00 [facility] Influenza Virus 2018-08-29 Completed [facility] Vaccine Quad .5 mL 00:00:00 [facility] (FLUZONE/FLULAVAL/FL UARIX) Meningococcal B, OMV 2018-08-29 Completed [facility] 00:00:00 [facility] Influenza Virus 2018-08-29 Completed [facility] Vaccine Quad .5 mL 00:00:00 [facility] 6[facility] (FLUZONE/FLULAVAL/FL UARIX) Meningococcal B, OMV 2018-08-29 Completed [facility] 00:00:00 [facility] Influenza Virus 2018-08-29 Completed [facility] of Vaccine Quad .5 mL 00:00:00 [facility] 6+ MO Branch (FLUZONE/FLULAVAL/FL UARIX) Meningococcal B, OMV 2018-08-29 Completed [facility] 00:00:00 [facility] Influenza Virus 2018-08-29 Completed [facility] of Vaccine Quad .5 mL 00:00:00 [facility] 6+ MO Branch (FLUZONE/FLULAVAL/FL UARIX) Meningococcal B, OMV 2018-08-29 Completed [facility] 00:00:00 [facility] Influenza Virus 2018-08-29 Completed [facility] of Vaccine Quad .5 mL 00:00:00 [facility] 6+ MO Branch (FLUZONE/FLULAVAL/FL UARIX) Meningococcal B, OMV 2018-08-29 Completed [facility] 00:00:00 [facility] Influenza Virus 2018-08-29 Completed [facility] of Vaccine Quad .5 mL 00:00:00 [facility] 6+ MO Branch (FLUZONE/FLULAVAL/FL UARIX) Meningococcal B, OMV 2018-08-29 Completed [facility] 00:00:00 [facility] Influenza Virus 2018-08-29 Completed [facility] of Vaccine Quad .5 mL 00:00:00 [facility] 6+ MO Branch (FLUZONE/FLULAVAL/FL UARIX) Meningococcal B, OMV 2018-08-29 Completed [facility] 00:00:00 [facility] Influenza Virus 2018-08-29 Completed [facility] Vaccine Quad .5 mL 00:00:00 [facility] 6+ MO Branch (FLUZONE/FLULAVAL/FL UARIX) Meningococcal B, OMV 2018-08-29 Completed [facility] 00:00:00 [facility] Influenza Virus 2018-08-29 Completed [facility] of Vaccine Quad .5 mL 00:00:00 [facility] 6+ MO Branch (FLUZONE/FLULAVAL/FL UARIX) Meningococcal B, OMV 2018-08-29 Completed [facility] 00:00:00 [facility] Meningococcal 2018-01-17 Completed [facility] of Polysaccharide 00:00:00 [...] y of Vaccine Quad IM 3+ 00:00:00 [facility] Influenza Virus 2017-04-12 Completed [facility]it y of Vaccine Quad IM 3+ 00:00:00 [facility] Influenza Virus 2017-04-12 Completed [facility] y of Vaccine Quad IM 3+ 00:00:00 [facility] Influenza Virus 2017-04-12 Completed [facility] y of Vaccine Quad IM 3+ 00:00:00 [facility] Influenza Virus 2017-04-12 Completed [facility] y of Vaccine Quad IM 3+ 00:00:00 [facility] Influenza Virus 2017-04-12 Completed [facility] of Vaccine Quad IM 3+ 00:00:00 [facility] Influenza Virus 2017-04-12 Completed [facility] y of Vaccine Quad IM 3+ 00:00:00 [facility] Influenza Virus 2017-04-12 Completed [facility] y of Vaccine Quad IM 3+ 00:00:00 [facility] Influenza Virus 2017-04-12 Completed [facility] y of Vaccine Quad IM 3+ 00:00:00 [facility] Influenza Virus 2017-04-12 Completed [facility] of Vaccine Quad IM 3+ 00:00:00 [facility] Influenza Virus 2017-04-12 Completed [facility] of Vaccine Quad IM 3+ 00:00:00 [facility] Influenza Virus 2017-04-12 Completed [facility] y of Vaccine Quad IM 3+ 00:00:00 [facility] Influenza Virus 2017-04-12 Completed [facility] y of Vaccine Quad IM 3+ 00:00:00 [facility] Influenza Virus 2017-04-12 Completed [facility] y of Vaccine Quad IM 3+ 00:00:00 [facility] Influenza Virus 2017-04-12 Completed [facility] y of Vaccine Quad IM 3+ 00:00:00 [facility] Influenza Virus 2017-04-12 Completed [facility] y of Vaccine Quad IM 3+ 00:00:00 [facility] Influenza Virus 2017-04-12 Completed [facility] y of Vaccine Quad IM 3+ 00:00:00 [facility] Influenza Virus 2017-04-12 Completed [facility] y of Vaccine Quad IM 3+ 00:00:00 [facility] Influenza Virus 2017-04-12 Completed [facility] y of Vaccine Quad IM 3+ 00:00:00 [facility] Influenza Virus 2017-04-12 Completed [facility] y of Vaccine Quad IM 3+ 00:00:00 [facility] Influenza Virus 2017-04-12 Completed [facility] y of Vaccine Quad IM 3+ 00:00:00 [facility] Influenza Virus 2017-04-12 Completed [facility] y of Vaccine Quad IM 3+ 00:00:00 [facility] Influenza Virus 2017-04-12 Completed [facility] y of Vaccine Quad IM 3+ 00:00:00 [facility] Influenza Virus 2017-04-12 Completed [facility] y of Vaccine Quad IM 3+ 00:00:00 [facility] Influenza Virus 2017-04-12 Completed [facility] y of Vaccine Quad IM 3+ 00:00:00 [facility] Influenza Virus 2017-04-12 Completed [facility] y of Vaccine Quad IM 3+ 00:00:00 [facility] Influenza Virus 2017-04-12 Completed [facility] y of Vaccine Quad IM 3+ 00:00:00 [facility] Influenza Virus 2017-04-12 Completed [facility] y of Vaccine Quad IM 3+ 00:00:00 [facility] Influenza Virus 2017-04-12 Completed [facility] y of Vaccine Quad IM 3+ 00:00:00 [facility] Influenza Virus 2017-04-12 Completed [facility] y of Vaccine Quad IM 3+ 00:00:00 [facility] Influenza Virus 2017-04-12 Completed [facility] of Vaccine Quad IM 3+ 00:00:00 [facility] Influenza Virus 2017-04-12 Completed [facility] y of Vaccine Quad IM 3+ 00:00:00 [facility] Influenza Virus 2017-04-12 Completed [facility] y of Vaccine Quad IM 3+ 00:00:00 [facility] Influenza Virus 2017-04-12 Completed [facility] y of Vaccine Quad IM 3+ 00:00:00 [facility] Influenza Virus 2017-04-12 Completed [facility] y of Vaccine Quad IM 3+ 00:00:00 [facility] Influenza Virus 2017-04-12 Completed [facility] y of Vaccine Quad IM 3+ 00:00:00 [facility] Influenza Virus 2017-04-12 Completed [facility] y of Vaccine Quad IM 3+ 00:00:00 [facility] Influenza Virus 2017-04-12 Completed [facility] y of Vaccine Quad IM 3+ 00:00:00 [facility] Influenza Virus 2017-04-12 Completed [facility] of Vaccine Quad IM 3+ 00:00:00 [facility] Influenza Virus 2017-04-12 Completed [facility] of Vaccine Quad IM 3+ 00:00:00 [facility] Influenza Virus 2017-04-12 Completed [facility] y of Vaccine Quad IM 3+ 00:00:00 [facility] Influenza Virus 2017-04-12 Completed [facility] y of Vaccine Quad IM 3+ 00:00:00 [facility] Influenza Virus 2017-04-12 Completed [facility] y of Vaccine Quad IM 3+ 00:00:00 [facility] Influenza Virus 2017-04-12 Completed [facility] y of Vaccine Quad IM 3+ 00:00:00 [facility] Influenza Virus 2017-04-12 Completed [facility] y of Vaccine Quad IM 3+ 00:00:00 [facility] Influenza Virus 2017-04-12 Completed [facility] y of Vaccine Quad IM 3+ 00:00:00 [facility] Influenza Virus 2017-04-12 Completed [facility] y of Vaccine Quad IM 3+ 00:00:00 [facility] Influenza Virus 2017-04-12 Completed [facility] y of Vaccine Quad IM 3+ 00:00:00 [facility] Influenza Virus 2017-04-12 Completed [facility] y of Vaccine Quad IM 3+ 00:00:00 [facility] Influenza Virus 2017-04-12 Completed [facility] y of Vaccine Quad IM 3+ 00:00:00 [facility] Influenza Virus 2017-04-12 Completed [facility] y of Vaccine Quad IM 3+ 00:00:00 [facility] Influenza Virus 2017-04-12 Completed [facility] y of Vaccine Quad IM 3+ 00:00:00 [facility] Influenza Virus 2017-04-12 Completed [facility] y of Vaccine Quad IM 3+ 00:00:00 [facility] Influenza Virus 2017-04-12 Completed [facility] y of Vaccine Quad IM 3+ 00:00:00 [facility] Influenza Virus 2017-04-12 Completed [facility] y of Vaccine Quad IM 3+ 00:00:00 [facility] Influenza Virus 2017-04-12 Completed [facility] y of Vaccine Quad IM 3+ 00:00:00 [facility] Influenza Virus 2017-04-12 Completed [facility] y of Vaccine Quad IM 3+ 00:00:00 [facility] Influenza Virus 2017-04-12 Completed [facility] y of Vaccine Quad IM 3+ 00:00:00 [facility] Influenza Virus 2017-04-12 Completed [facility] y of Vaccine Quad IM 3+ 00:00:00 [facility] Influenza Virus 2017-04-12 Completed [facility] y of Vaccine Quad IM 3+ 00:00:00 [facility] Influenza Virus 2017-04-12 Completed [facility] y of Vaccine Quad IM 3+ 00:00:00 [facility] Influenza Virus 2017-04-12 Completed [facility] y of Vaccine Quad IM 3+ 00:00:00 [facility] Influenza Virus 2017-04-12 Completed [facility] y of Vaccine Quad IM 3+ 00:00:00 [facility] Influenza Virus 2017-04-12 Completed [facility] y of Vaccine Quad IM 3+ 00:00:00 [facility] Influenza Virus 2017-04-12 Completed [facility] y of Vaccine Quad IM 3+ 00:00:00 [facility] Influenza Virus 2017-04-12 Completed [facility] y of Vaccine Quad IM 3+ 00:00:00 [facility] Influenza Virus 2017-04-12 Completed [facility] y of Vaccine Quad IM 3+ 00:00:00 [facility] Influenza Virus 2017-04-12 Completed [facility] y of Vaccine Quad IM 3+ 00:00:00 [facility] Influenza Virus 2017-04-12 Completed [facility] y of Vaccine Quad IM 3+ 00:00:00 [facility] Influenza Virus 2017-04-12 Completed [facility] y of Vaccine Quad IM 3+ 00:00:00 [facility] Influenza Virus 2017-04-12 Completed [facility] y of Vaccine Quad IM 3+ 00:00:00 [facility] Influenza Virus 2017-04-12 Completed [facility] y of Vaccine Quad IM 3+ 00:00:00 [facility] Influenza Virus 2017-04-12 Completed [facility] y of Vaccine Quad IM 3+ 00:00:00 [facility] Influenza Virus 2017-04-12 Completed [facility] y of Vaccine Quad IM 3+ 00:00:00 [facility] Influenza Virus 2017-04-12 Completed [facility] y of Vaccine Quad IM 3+ 00:00:00 [facility] Influenza Virus 2017-04-12 Completed [facility] y of Vaccine Quad IM 3+ 00:00:00 [facility] Influenza Virus 2017-04-12 Completed [facility] y of Vaccine Quad IM 3+ 00:00:00 [facility] Influenza Virus 2017-04-12 Completed [facility] y of Vaccine Quad IM 3+ 00:00:00 [facility] Influenza Virus 2017-04-12 Completed [facility] y of Vaccine Quad IM 3+ 00:00:00 [facility] Influenza Virus 2017-04-12 Completed [facility] y of Vaccine Quad IM 3+ 00:00:00 [facility] Influenza Virus 2017-04-12 Completed [facility] y of Vaccine Quad IM 3+ 00:00:00 [facility] Influenza Virus 2017-04-12 Completed [facility] y of Vaccine Quad IM 3+ 00:00:00 [facility] Influenza Virus 2017-04-12 Completed [facility] y of Vaccine Quad IM 3+ 00:00:00 [facility] Influenza Virus 2017-04-12 Completed [facility] y of Vaccine Quad IM 3+ 00:00:00 [facility] Influenza Virus 2017-04-12 Completed [facility] y of Vaccine Quad IM 3+ 00:00:00 [facility] Influenza Virus 2017-04-12 Completed [facility] y of Vaccine Quad IM 3+ 00:00:00 [facility] Influenza Virus 2017-04-12 Completed [facility] of Vaccine Quad IM 3+ 00:00:00 [facility] Influenza Virus 2017-04-12 Completed [facility] y of Vaccine Quad IM 3+ 00:00:00 [facility] Influenza Virus 2017-04-12 Completed [facility] y of Vaccine Quad IM 3+ 00:00:00 [facility] Influenza Virus 2017-04-12 Completed [facility] y of Vaccine Quad IM 3+ 00:00:00 [facility] Influenza Virus 2017-04-12 Completed [facility] y of Vaccine Quad IM 3+ 00:00:00 [facility] Influenza Virus 2017-04-12 Completed [facility] y of Vaccine Quad IM 3+ 00:00:00 [facility] Influenza Virus 2017-04-12 Completed [facility] y of Vaccine Quad IM 3+ 00:00:00 [facility] Influenza Virus 2017-04-12 Completed [facility] y of Vaccine Quad IM 3+ 00:00:00 [facility] Influenza Virus 2017-04-12 Completed [facility] y of Vaccine Quad IM 3+ 00:00:00 [facility] Influenza Virus 2017-04-12 Completed [facility] y of Vaccine Quad IM 3+ 00:00:00 [facility] Influenza Virus 2017-04-12 Completed [facility] y of Vaccine Quad IM 3+ 00:00:00 [facility] Influenza Virus 2017-04-12 Completed [facility] y of Vaccine Quad IM 3+ 00:00:00 [facility] Influenza Virus 2017-04-12 Completed [facility] y of Vaccine Quad IM 3+ 00:00:00 [facility] Influenza Virus 2017-04-12 Completed [facility] y of Vaccine Quad IM 3+ 00:00:00 [facility] Influenza Virus 2017-04-12 Completed [facility] y of Vaccine Quad IM 3+ 00:00:00 [facility] Influenza Virus 2017-04-12 Completed [facility] y of Vaccine Quad IM 3+ 00:00:00 [facility] Influenza Virus 2017-04-12 Completed [facility] y of Vaccine Quad IM 3+ 00:00:00 [facility] Influenza Virus 2017-04-12 Completed [facility] y of Vaccine Quad IM 3+ 00:00:00 [facility] Influenza Virus 2017-04-12 Completed [facility] y of Vaccine Quad IM 3+ 00:00:00 [facility] HPV9 2017-02-01 Completed [facility] 00:00:00 [place] [...] HPV9 2017-02-01 Completed [facility] 00:00:00 [facility] HPV9 2017-02-01 Completed [facility] 00:00:00 [...] HPV 2016-01-20 Completed [facility] 00:00:00 [facility] HPV 2016-01-20 Completed [facility] 00:00:00 [facility] HPV 2016-01-20 Completed [facility] 00:00:00 [facility] HPV 2016-01-20 Completed [facility] 00:00:00 [facility] HPV 2016-01-20 Completed [facility] 00:00:00 [facility] HPV 2016-01-20 Completed [facility] 00:00:00 [facility] HPV 2016-01-20 Completed [facility] 00[facility]00:00 [facility] HPV 2016-01-20 Completed [facility] 00[facility]00:00 [facility] HPV 2016-01-20 Completed [facility] 00:00:00 [facility] HPV 2016-01-20 Completed [facility] 00:00:00 [facility] HPV 2016-01-20 Completed [facility] 00[facility]00:00 [facility] HPV 2016-01-20 Completed [facility] 00:00:00 [facility] HPV 2016-01-20 Completed [facility] 00:00:00 [facility] HPV 2016-01-20 Completed [facility] 00[facility]00:00 [facility] HPV 2016-01-20 Completed [facility] 00[facility]00:00 [facility] HPV 2016-01-20 Completed [facility] 00[facility]00:00 [facility] HPV 2016-01-20 Completed [facility] 00:00:00 [facility] HPV 2016-01-20 Completed [facility] 00[facility]00:00 [facility] HPV 2016-01-20 Completed [facility] 00:00:00 [facility] HPV 2016-01-20 Completed [facility] 00:00:00 [facility] HPV 2016-01-20 Completed [facility] 00:00:00 [...] HPV 2016-01-20 Completed [facility] 00:00:00 [facility] HPV 2016-01-20 Completed [facility] 00:00:00 [facility] HPV 2016-01-20 Completed [facility] 00:00:00 [...] HPV 2016-01-20 Completed [facility] 00:00:00 [facility] HPV 2016-01-20 Completed [facility] 00:00:00 [facility] HPV 2016-01-20 Completed [facility] 00:00:00 [facility] HPV 2016-01-20 Completed [facility] 00:00:00 [facility] HPV 2016-01-20 Completed [facility] 00[facility]00:00 [facility] HPV 2016-01-20 Completed [facility] 00:00:00 [facility] HPV 2016-01-20 Completed [facility] 00:00:00 [facility] HPV 2016-01-20 Completed [facility] 00[facility]00:00 [facility] HPV 2016-01-20 Completed [facility] 00:00:00 [facility] HPV 2016-01-20 Completed [facility] 00:00:00 [...] [facility] HPV 2016-01-20 Completed [facility] 00:00:00 [facility] HPV 2016-01-20 Completed [facility] 00[facility]00:00 [facility] HPV 2016-01-20 Completed [facility] 00[facility]00:00 [facility] HPV 2016-01-20 Completed [facility] 00[facility]00:00 [facility] HPV 2016-01-20 Completed [facility] 00:00:00 [facility] HPV 2016-01-20 Completed [facility] 00[facility]00:00 [facility] HPV 2016-01-20 Completed [facility] 00[facility]00:00 [facility] HPV 2016-01-20 Completed [facility] 00[facility]00:00 [facility] HPV 2016-01-20 Completed [facility] 00:00:00 [facility] Influenza Virus 2015-07-08 Completed [facility] IM 3+ 00[facility]00:00 [facility] HPV9 2015-07-08 Completed [facility] 00:00:00 [facility] Influenza Virus 2015-07-08 Completed [facility] IM 3+ 00[facility]00:00 [facility] HPV9 2015-07-08 Completed [facility] 00:00:00 [facility] Influenza Virus 2015-07-08 Completed [facility] IM 3+ 00:00:00 [facility] HPV9 2015-07-08 Completed [facility] 00:00:00 [facility] Influenza Virus 2015-07-08 Completed [facility] IM 3+ 00:00:00 [facility] HPV9 2015-07-08 Completed [facility] 00:00:00 [facility] Influenza Virus 2015-07-08 Completed [facility] IM 3+ 00:00:00 [facility] HPV9 2015-07-08 Completed [facility] 00:00:00 [facility] Influenza Virus 2015-07-08 Completed [facility] IM 3+ 00:00:00 [facility] HPV9 2015-07-08 Completed [facility] 00:00:00 [facility] Influenza Virus 2015-07-08 Completed [facility] IM 3+ 00:00:00 [facility] HPV9 2015-07-08 Completed [facility] 00:00:00 [facility] Influenza Virus 2015-07-08 Completed [facility] IM 3+ 00:00:00 [facility] HPV9 2015-07-08 Completed [facility] 00:00:00 [facility] Influenza Virus 2015-07-08 Completed [facility] IM 3+ 00:00:00 [facility] HPV9 2015-07-08 Completed [facility] 00:00:00 [facility] Influenza Virus 2015-07-08 Completed [facility] IM 3+ 00:00:00 [facility] HPV9 2015-07-08 Completed [facility] 00:00:00 [facility] Influenza Virus 2015-07-08 Completed [facility] IM 3+ 00:00:00 [facility] HPV9 2015-07-08 Completed [facility] 00:00:00 [facility] Influenza Virus 2015-07-08 Completed [facility] IM 3+ 00:00:00 [facility] HPV9 2015-07-08 Completed [facility] 00:00:00 [facility] Influenza Virus 2015-07-08 Completed [facility] IM 3+ 00:00:00 [facility] HPV9 2015-07-08 Completed [facility] 00:00:00 [facility] Influenza Virus 2015-07-08 Completed [facility] IM 3+ 00:00:00 [facility] HPV9 2015-07-08 Completed [facility] 00:00:00 [facility] Influenza Virus 2015-07-08 Completed [facility] IM 3+ 00:00:00 [facility] HPV9 2015-07-08 Completed [facility] 00:00:00 [facility] Influenza Virus 2015-07-08 Completed [facility] IM 3+ 00:00:00 [facility] HPV9 2015-07-08 Completed [facility] 00:00:00 [facility] Influenza Virus 2015-07-08 Completed [facility] IM 3+ 00:00:00 [facility] HPV9 2015-07-08 Completed [facility] 00:00:00 [facility] Influenza Virus 2015-07-08 Completed [facility] IM 3+ 00:00:00 [facility] HPV9 2015-07-08 Completed [facility] 00:00:00 [facility] Influenza Virus 2015-07-08 Completed [facility] IM 3+ 00:00:00 [facility] HPV9 2015-07-08 Completed [facility] 00:00:00 [facility] Influenza Virus 2015-07-08 Completed [facility] IM 3+ 00:00:00 [facility] HPV9 2015-07-08 Completed [facility] 00:00:00 [facility] Influenza Virus 2015-07-08 Completed [facility] IM 3+ 00:00:00 [facility] HPV9 2015-07-08 Completed [facility] 00:00:00 [facility] Influenza Virus 2015-07-08 Completed [facility] IM 3+ 00:00:00 [facility] HPV9 2015-07-08 Completed [facility] 00:00:00 [facility] Influenza Virus 2015-07-08 Completed [facility] IM 3+ 00:00:00 [facility] HPV9 2015-07-08 Completed [facility] 00:00:00 [facility] Influenza Virus 2015-07-08 Completed [facility] IM 3+ 00:00:00 [facility] HPV9 2015-07-08 Completed [facility] 00:00:00 [facility] Influenza Virus 2015-07-08 Completed [facility] IM 3+ 00:00:00 [facility] HPV9 2015-07-08 Completed [facility] 00:00:00 [facility] Influenza Virus 2015-07-08 Completed [facility] Vacc[facility] IM 3+ 00:00:00 [facility] HPV9 2015-07-08 Completed [facility] 00:00:00 [facility] Influenza Virus 2015-07-08 Completed [facility] Vacc[facility] IM 3+ 00:00:00 [facility] HPV9 2015-07-08 Completed [facility] 00:00:00 [facility] Influenza Virus 2015-07-08 Completed [facility] IM 3+ 00:00:00 [facility] HPV9 2015-07-08 Completed [facility] 00:00:00 [facility] Influenza Virus 2015-07-08 Completed [facility] Vacc[facility] IM 3+ 00:00:00 [facility] HPV9 2015-07-08 Completed [facility] 00:00:00 [facility] Influenza Virus 2015-07-08 Completed [facility] Vacc[facility] IM 3+ 00:00:00 [facility] HPV9 2015-07-08 Completed [facility] 00:00:00 [facility] Influenza Virus 2015-07-08 Completed [facility] Vaccine [facility] IM 3+ 00:00:00 [facility] HPV9 2015-07-08 Completed [facility] 00:00:00 [facility] Influenza Virus 2015-07-08 Completed [facility] Vaccine Quad IM 3+ 00:00:00 [facility] HPV9 2015-07-08 Completed [facility] 00:00:00 [facility] Influenza Virus 2015-07-08 Completed [facility] Vaccine Quad IM 3+ 00:00:00 [facility] HPV9 2015-07-08 Completed [facility] 00:00:00 [facility] Influenza Virus 2015-07-08 Completed [facility] Vacc[facility] IM 3+ 00:00:00 [facility] HPV9 2015-07-08 Completed [facility] 00:00:00 [facility] Influenza Virus 2015-07-08 Completed [facility] Vaccine Quad IM 3+ 00:00:00 [facility] HPV9 2015-07-08 Completed [facility] 00:00:00 [facility] Influenza Virus 2015-07-08 Completed [facility] Vaccine Quad IM 3+ 00:00:00 [facility] HPV9 2015-07-08 Completed [facility] 00:00:00 [facility] Influenza Virus 2015-07-08 Completed [facility] Vaccine Quad IM 3+ 00:00:00 [facility] HPV9 2015-07-08 Completed [facility] 00:00:00 [facility] Influenza Virus 2015-07-08 Completed [facility] Vaccine Quad IM 3+ 00:00:00 [facility] HPV9 2015-07-08 Completed [facility] 00:00:00 [facility] Influenza Virus 2015-07-08 Completed [facility] Vaccine Quad IM 3+ 00:00:00 [facility] HPV9 2015-07-08 Completed [facility] 00:00:00 [facility] Influenza Virus 2015-07-08 Completed [facility] Vaccine Quad IM 3+ 00:00:00 [facility] HPV9 2015-07-08 Completed [facility] 00:00:00 [facility] Influenza Virus 2015-07-08 Completed [facility] Vaccine Quad IM 3+ 00:00:00 [facility] HPV9 2015-07-08 Completed [facility] 00:00:00 [facility] Influenza Virus 2015-07-08 Completed [facility] Vaccine Quad IM 3+ 00:00:00 [facility] HPV9 2015-07-08 Completed [facility] 00:00:00 [facility] Influenza Virus 2015-07-08 Completed [facility] Vaccine Quad IM 3+ 00:00:00 [facility] HPV9 2015-07-08 Completed [facility] 00:00:00 [facility] Influenza Virus 2015-07-08 Completed [facility] Vaccine Quad IM 3+ 00:00:00 [facility] HPV9 2015-07-08 Completed [facility] 00:00:00 [facility] Influenza Virus 2015-07-08 Completed [facility] Vaccine Quad IM 3+ 00:00:00 [facility] HPV9 2015-07-08 Completed [facility] 00:00:00 [facility] Influenza Virus 2015-07-08 Completed [facility] Vaccine Quad IM 3+ 00:00:00 [facility] HPV9 2015-07-08 Completed [facility] 00:00:00 [facility] Influenza Virus 2015-07-08 Completed [facility] Vaccine Quad IM 3+ 00:00:00 [facility] HPV9 2015-07-08 Completed [facility] 00:00:00 [facility] Influenza Virus 2015-07-08 Completed [facility] Vaccine Quad IM 3+ 00:00:00 [facility] HPV9 2015-07-08 Completed [facility] 00:00:00 [facility] Influenza Virus 2015-07-08 Completed [facility] Vaccine Quad IM 3+ 00:00:00 [facility] HPV9 2015-07-08 Completed [facility] 00:00:00 [facility] Influenza Virus 2015-07-08 Completed [facility] Vaccine Quad IM 3+ 00:00:00 [facility] HPV9 2015-07-08 Completed [facility] 00:00:00 [facility] Influenza Virus 2015-07-08 Completed [facility] Vaccine Quad IM 3+ 00:00:00 [facility] HPV9 2015-07-08 Completed [facility] 00:00:00 [facility] Influenza Virus 2015-07-08 Completed [facility] Vacc[facility] IM 3+ 00:00:00 [facility] HPV9 2015-07-08 Completed [facility] 00:00:00 [facility] Influenza Virus 2015-07-08 Completed [facility] Vaccine [facility] IM 3+ 00:00:00 [facility] HPV9 2015-07-08 Completed [facility] 00:00:00 [facility] Influenza Virus 2015-07-08 Completed [facility] Vacc[facility] IM 3+ 00:00:00 [facility] HPV9 2015-07-08 Completed [facility] 00:00:00 [facility] Influenza Virus 2015-07-08 Completed [facility] Vacc[facility] IM 3+ 00:00:00 [facility] HPV9 2015-07-08 Completed [facility] 00:00:00 [facility] Influenza Virus 2015-07-08 Completed [facility] Vacc[facility] Quad IM 3+ 00:00:00 [facility] HPV9 2015-07-08 Completed [facility] 00:00:00 [facility] Influenza Virus 2015-07-08 Completed [facility] Vacc[facility] IM 3+ 00:00:00 [facility] HPV9 2015-07-08 Completed [facility] 00:00:00 [facility] Influenza Virus 2015-07-08 Completed [facility] Vacc[facility] IM 3+ 00:00:00 [facility] HPV9 2015-07-08 Completed [facility] 00:00:00 [facility] Influenza Virus 2015-07-08 Completed [facility] Vaccine Quad IM 3+ 00:00:00 [facility] HPV9 2015-07-08 Completed [facility] 00:00:00 [facility] Influenza Virus 2015-07-08 Completed [facility] Vacc[facility] IM 3+ 00:00:00 [facility] HPV9 2015-07-08 Completed [facility] 00:00:00 [facility] Influenza Virus 2015-07-08 Completed [facility] Vaccine Quad IM 3+ 00:00:00 [facility] HPV9 2015-07-08 Completed [facility] 00:00:00 [facility] Influenza Virus 2015-07-08 Completed [facility] Vaccine Quad IM 3+ 00:00:00 [facility] HPV9 2015-07-08 Completed [facility] 00:00:00 [facility] Influenza Virus 2015-07-08 Completed [facility] Vaccine Quad IM 3+ 00:00:00 [facility] HPV9 2015-07-08 Completed [facility] 00:00:00 [facility] Influenza Virus 2015-07-08 Completed [facility] Vaccine Quad IM 3+ 00:00:00 [facility] HPV9 2015-07-08 Completed [facility] 00:00:00 [facility] Influenza Virus 2015-07-08 Completed [facility] Vaccine Quad IM 3+ 00:00:00 [facility] HPV9 2015-07-08 Completed [facility] 00:00:00 [facility] Influenza Virus 2015-07-08 Completed [facility] Vaccine [facility] IM 3+ 00:00:00 [facility] HPV9 2015-07-08 Completed [facility] 00:00:00 [facility] Influenza Virus 2015-07-08 Completed [facility] Vacc[facility] IM 3+ 00:00:00 [facility] HPV9 2015-07-08 Completed [facility] 00:00:00 [facility] Influenza Virus 2015-07-08 Completed [facility] Vacc[facility] Quad IM 3+ 00:00:00 [facility] HPV9 2015-07-08 Completed [facility] 00:00:00 [facility] Influenza Virus 2015-07-08 Completed [facility] Vacc[facility] IM 3+ 00:00:00 [facility] HPV9 2015-07-08 Completed [facility] 00:00:00 [facility] Influenza Virus 2015-07-08 Completed [facility] Vaccine Quad IM 3+ 00:00:00 [facility] HPV9 2015-07-08 Completed [facility] 00:00:00 [facility] Influenza Virus 2015-07-08 Completed [facility] Vaccine Quad IM 3+ 00:00:00 [facility] HPV9 2015-07-08 Completed [facility] 00:00:00 [facility] Influenza Virus 2015-07-08 Completed [facility] Vaccine Quad IM 3+ 00:00:00 [facility] HPV9 2015-07-08 Completed [facility] 00:00:00 [facility] Influenza Virus 2015-07-08 Completed [facility] Vaccine Quad IM 3+ 00:00:00 [facility] HPV9 2015-07-08 Completed [facility] 00:00:00 [facility] Influenza Virus 2015-07-08 Completed [facility] Vaccine Quad IM 3+ 00:00:00 [facility] HPV9 2015-07-08 Completed [facility] 00:00:00 [facility] Influenza Virus 2015-07-08 Completed [facility] Vaccine Quad IM 3+ 00:00:00 [facility] HPV9 2015-07-08 Completed [facility] 00:00:00 [facility] Influenza Virus 2015-07-08 Completed [facility] Vacc[facility] IM 3+ 00:00:00 [facility] HPV9 2015-07-08 Completed [facility] 00:00:00 [facility] Influenza Virus 2015-07-08 Completed [facility] Vacc[facility] IM 3+ 00:00:00 [facility] HPV9 2015-07-08 Completed [facility] 00:00:00 [facility] Influenza Virus 2015-07-08 Completed [facility] Vacc[facility] IM 3+ 00:00:00 [facility] HPV9 2015-07-08 Completed [facility] 00:00:00 [facility] Influenza Virus 2015-07-08 Completed [facility] Vacc[facility] IM 3+ 00:00:00 [facility] HPV9 2015-07-08 Completed [facility] 00:00:00 [facility] Influenza Virus 2015-07-08 Completed [facility] Vacc[facility] IM 3+ 00:00:00 [facility] HPV9 2015-07-08 Completed [facility] 00:00:00 [facility] Influenza Virus 2015-07-08 Completed [facility] IM 3+ 00:00:00 [facility] HPV9 2015-07-08 Completed [facility] 00:00:00 [facility] Influenza Virus 2015-07-08 Completed [facility] Vacc[facility] IM 3+ 00:00:00 [facility] HPV9 2015-07-08 Completed [facility] 00:00:00 [facility] Influenza Virus 2015-07-08 Completed [facility] Vaccine Quad IM 3+ 00:00:00 [facility] HPV9 2015-07-08 Completed [facility] 00:00:00 [facility] Influenza Virus 2015-07-08 Completed [facility] Vaccine [facility] IM 3+ 00:00:00 [facility] HPV9 2015-07-08 Completed [facility] 00:00:00 [facility] Influenza Virus 2015-07-08 Completed [facility] Vaccine [facility] IM 3+ 00:00:00 [facility] HPV9 2015-07-08 Completed [facility] 00:00:00 [facility] Influenza Virus 2015-07-08 Completed [facility] Vaccine Quad IM 3+ 00:00:00 [facility] HPV9 2015-07-08 Completed [facility] 00:00:00 [facility] Influenza Virus 2015-07-08 Completed [facility] Vaccine Quad IM 3+ 00:00:00 [facility] HPV9 2015-07-08 Completed [facility] 00:00:00 [facility] Influenza Virus 2015-07-08 Completed [facility] Vaccine Quad IM 3+ 00:00:00 [facility] HPV9 2015-07-08 Completed [facility] 00:00:00 [facility] Influenza Virus 2015-07-08 Completed [facility] Vaccine Quad IM 3+ 00:00:00 [facility] HPV9 2015-07-08 Completed [facility] 00:00:00 [facility] Influenza Virus 2015-07-08 Completed [facility] Vaccine Quad IM 3+ 00:00:00 [facility] HPV9 2015-07-08 Completed [facility] 00:00:00 [facility] Influenza Virus 2015-07-08 Completed [facility] Vaccine Quad IM 3+ 00:00:00 [facility] HPV9 2015-07-08 Completed [facility] 00:00:00 [facility] Influenza Virus 2015-07-08 Completed [facility] Vaccine Quad IM 3+ 00:00:00 [facility] HPV9 2015-07-08 Completed [facility] 00:00:00 [facility] Influenza Virus 2015-07-08 Completed [facility] Vaccine Quad IM 3+ 00:00:00 [facility] HPV9 2015-07-08 Completed [facility] 00:00:00 [facility] Influenza Virus 2015-07-08 Completed [facility] Vaccine Quad IM 3+ 00:00:00 [facility] HPV9 2015-07-08 Completed [facility] 00:00:00 [facility] Influenza Virus 2015-07-08 Completed [facility] Vaccine Quad IM 3+ 00:00:00 [facility] HPV9 2015-07-08 Completed [facility] 00:00:00 [facility] Influenza Virus 2015-07-08 Completed [facility] Vaccine Quad IM 3+ 00:00:00 [facility] HPV9 2015-07-08 Completed [facility] 00:00:00 [facility] Influenza Virus 2015-07-08 Completed [facility] Vaccine Quad IM 3+ 00:00:00 [facility] HPV9 2015-07-08 Completed [facility] 00:00:00 [facility] Influenza Virus 2015-07-08 Completed [facility] Vaccine Quad IM 3+ 00:00:00 [facility] HPV9 2015-07-08 Completed [facility] 00:00:00 [facility] Influenza Virus 2015-07-08 Completed [facility] Vaccine Quad IM 3+ 00:00:00 [facility] HPV9 2015-07-08 Completed [facility] 00:00:00 [facility] Influenza Virus 2015-07-08 Completed [facility] Vaccine Quad IM 3+ 00:00:00 [facility] HPV9 2015-07-08 Completed [facility] 00:00:00 [facility] Influenza Virus 2015-07-08 Completed [facility] Vaccine Quad IM 3+ 00:00:00 [facility] HPV9 2015-07-08 Completed [facility] 00:00:00 [facility] Influenza Virus 2015-07-08 Completed [facility] Vaccine Quad IM 3+ 00:00:00 [facility] HPV9 2015-07-08 Completed [facility] 00:00:00 [facility] Influenza Virus 2015-07-08 Completed [facility] of Vaccine Quad IM 3+ 00:00:00 [facility] HPV9 2015-07-08 Completed [facility] 00:00:00 [facility] Influenza Virus 2015-07-08 Completed [facility] Vaccine Quad IM 3+ 00:00:00 [facility] HPV9 2015-07-08 Completed [facility] 00:00:00 [facility] Influenza Virus 2015-07-08 Completed [facility] of Vaccine Quad IM 3+ 00:00:00 [facility] HPV9 2015-07-08 Completed [facility] 00:00:00 [facility] Influenza Virus 2014-04-02 Completed [facility] Vaccine (3+ yrs) 00:00:00 [facility] Influenza Virus 2014-04-02 Completed [facility] of Vaccine (3+ yrs) 00:00:00 [facility] Influenza Virus 2014-04-02 Completed [facility] of Vaccine (3+ yrs) 00:00:00 [facility] Influenza Virus 2014-04-02 Completed [facility] of Vaccine (3+ yrs) 00:00:00 [facility] Influenza Virus 2014-04-02 Completed [facility] Vaccine (3+ yrs) 00:00:00 [facility] Influenza Virus 2014-04-02 Completed [facility] Vaccine (3+ yrs) 00:00:00 [facility] Influenza Virus 2014-04-02 Completed [facility] Vaccine (3+ yrs) 00:00:00 [facility] Influenza Virus 2014-04-02 Completed [facility] Vaccine (3+ yrs) 00:00:00 [facility] Influenza Virus 2014-04-02 Completed [facility] Vaccine (3+ yrs) 00:00:00 [facility] Influenza Virus 2014-04-02 Completed [facility] of Vaccine (3+ yrs) 00:00:00 [facility] Influenza Virus 2014-04-02 Completed [facility] Vaccine (3+ yrs) 00:00:00 [facility] Influenza Virus 2014-04-02 Completed [facility] Vaccine (3+ yrs) 00:00:00 [facility] Influenza Virus 2014-04-02 Completed [facility] Vaccine (3+ yrs) 00:00:00 [facility] Influenza Virus 2014-04-02 Completed [facility] Vaccine (3+ yrs) 00:00:00 [facility] Influenza Virus 2014-04-02 Completed [facility] Vaccine (3+ yrs) 00:00:00 [facility] Influenza Virus 2014-04-02 Completed [facility] Vaccine (3+ yrs) 00:00:00 [facility] Influenza Virus 2014-04-02 Completed [facility] Vaccine (3+ yrs) 00:00:00 [facility] Influenza Virus 2014-04-02 Completed [facility] of Vaccine (3+ yrs) 00:00:00 [facility] Influenza Virus 2014-04-02 Completed [facility] Vaccine (3+ yrs) 00:00:00 [facility] Influenza Virus 2014-04-02 Completed [facility] Vaccine (3+ yrs) 00:00:00 [facility] Influenza Virus 2014-04-02 Completed [facility] Vaccine (3+ yrs) 00:00:00 [facility] Influenza Virus 2014-04-02 Completed [facility] Vaccine (3+ yrs) 00:00:00 [facility] Influenza Virus 2014-04-02 Completed [facility] Vaccine (3+ yrs) 00:00:00 [facility] Influenza Virus 2014-04-02 Completed [facility] Vaccine (3+ yrs) 00:00:00 [facility] Influenza Virus 2014-04-02 Completed [facility] Vaccine (3+ yrs) 00:00:00 [facility] Influenza Virus 2014-04-02 Completed [facility] Vaccine (3+ yrs) 00:00:00 [facility] Influenza Virus 2014-04-02 Completed [facility] Vaccine (3+ yrs) 00:00:00 [facility] Influenza Virus 2014-04-02 Completed [facility] Vaccine (3+ yrs) 00:00:00 [facility] Influenza Virus 2014-04-02 Completed [facility] Vaccine (3+ yrs) 00:00:00 [facility] Influenza Virus 2014-04-02 Completed [facility] Vaccine (3+ yrs) 00:00:00 [facility] Influenza Virus 2014-04-02 Completed [facility] of Vaccine (3+ yrs) 00:00:00 [facility] Influenza Virus 2014-04-02 Completed [facility] Vaccine (3+ yrs) 00:00:00 [facility] Influenza Virus 2014-04-02 Completed [facility] Vaccine (3+ yrs) 00:00:00 [facility] Influenza Virus 2014-04-02 Completed [facility] of Vaccine (3+ yrs) 00:00:00 [facility] Influenza Virus 2014-04-02 Completed [facility] Vaccine (3+ yrs) 00:00:00 [facility] Influenza Virus 2014-04-02 Completed [facility] Vaccine (3+ yrs) 00:00:00 [facility] Influenza Virus 2014-04-02 Completed [facility] Vaccine (3+ yrs) 00:00:00 [facility] Influenza Virus 2014-04-02 Completed [facility] Vaccine (3+ yrs) 00:00:00 [facility] Influenza Virus 2014-04-02 Completed [facility] Vaccine (3+ yrs) 00:00:00 [facility] Influenza Virus 2014-04-02 Completed [facility] Vaccine (3+ yrs) 00:00:00 [facility] Influenza Virus 2014-04-02 Completed [facility] Vaccine (3+ yrs) 00:00:00 [facility] Influenza Virus 2014-04-02 Completed [facility] Vaccine (3+ yrs) 00:00:00 [facility] Influenza Virus 2014-04-02 Completed [facility] Vaccine (3+ yrs) 00:00:00 [facility] Influenza Virus 2014-04-02 Completed [facility] Vaccine (3+ yrs) 00:00:00 [facility] Influenza Virus 2014-04-02 Completed [facility] of Vaccine (3+ yrs) 00:00:00 [facility] Influenza Virus 2014-04-02 Completed [facility] Vaccine (3+ yrs) 00:00:00 [facility] Influenza Virus 2014-04-02 Completed [facility] Vaccine (3+ yrs) 00:00:00 [facility] Influenza Virus 2014-04-02 Completed [facility] of Vaccine (3+ yrs) 00:00:00 [facility] Influenza Virus 2014-04-02 Completed [facility] Vaccine (3+ yrs) 00:00:00 [facility] Influenza Virus 2014-04-02 Completed [facility] Vaccine (3+ yrs) 00:00:00 [facility] Influenza Virus 2014-04-02 Completed [facility] of Vaccine (3+ yrs) 00:00:00 [facility] Influenza Virus 2014-04-02 Completed [facility] Vaccine (3+ yrs) 00:00:00 [facility] Influenza Virus 2014-04-02 Completed [facility] Vaccine (3+ yrs) 00:00:00 [facility] Influenza Virus 2014-04-02 Completed [facility] of Vaccine (3+ yrs) 00:00:00 [facility] Influenza Virus 2014-04-02 Completed [facility] Vaccine (3+ yrs) 00:00:00 [facility] Influenza Virus 2014-04-02 Completed [facility] Vaccine (3+ yrs) 00:00:00 [facility] Influenza Virus 2014-04-02 Completed [facility] Vaccine (3+ yrs) 00:00:00 [facility] Influenza Virus 2014-04-02 Completed [facility] Vaccine (3+ yrs) 00:00:00 [facility] Influenza Virus 2014-04-02 Completed [facility] Vaccine (3+ yrs) 00:00:00 [facility] Influenza Virus 2014-04-02 Completed [facility] Vaccine (3+ yrs) 00:00:00 [facility] Influenza Virus 2014-04-02 Completed [facility] Vaccine (3+ yrs) 00:00:00 [facility] Influenza Virus 2014-04-02 Completed [facility] Vaccine (3+ yrs) 00:00:00 [facility] Influenza Virus 2014-04-02 Completed [facility] Vaccine (3+ yrs) 00:00:00 [facility] Influenza Virus 2014-04-02 Completed [facility] Vaccine (3+ yrs) 00:00:00 [facility] Influenza Virus 2014-04-02 Completed [facility] of Vaccine (3+ yrs) 00:00:00 [facility] Influenza Virus 2014-04-02 Completed [facility] Vaccine (3+ yrs) 00:00:00 [facility] Influenza Virus 2014-04-02 Completed [facility] Vaccine (3+ yrs) 00:00:00 [facility] Influenza Virus 2014-04-02 Completed [facility] Vaccine (3+ yrs) 00:00:00 [facility] Influenza Virus 2014-04-02 Completed [facility] Vaccine (3+ yrs) 00:00:00 [facility] Influenza Virus 2014-04-02 Completed [facility] Vaccine (3+ yrs) 00:00:00 [facility] Influenza Virus 2014-04-02 Completed [facility] Vaccine (3+ yrs) 00:00:00 [facility] Influenza Virus 2014-04-02 Completed [facility] Vaccine (3+ yrs) 00:00:00 [facility] Influenza Virus 2014-04-02 Completed [facility] Vaccine (3+ yrs) 00:00:00 [facility] Influenza Virus 2014-04-02 Completed [facility] Vaccine (3+ yrs) 00:00:00 [facility] Influenza Virus 2014-04-02 Completed [facility] Vaccine (3+ yrs) 00:00:00 [facility] Influenza Virus 2014-04-02 Completed [facility] Vaccine (3+ yrs) 00:00:00 [facility] Influenza Virus 2014-04-02 Completed [facility] Vaccine (3+ yrs) 00:00:00 [facility] Influenza Virus 2014-04-02 Completed [facility] Vaccine (3+ yrs) 00:00:00 [facility] Influenza Virus 2014-04-02 Completed [facility] Vaccine (3+ yrs) 00:00:00 [facility] Influenza Virus 2014-04-02 Completed [facility] Vaccine (3+ yrs) 00:00:00 [facility] Influenza Virus 2014-04-02 Completed [facility] Vaccine (3+ yrs) 00:00:00 [facility] Influenza Virus 2014-04-02 Completed [facility] Vaccine (3+ yrs) 00:00:00 [facility] Influenza Virus 2014-04-02 Completed [facility] Vaccine (3+ yrs) 00:00:00 [facility] Influenza Virus 2014-04-02 Completed [facility] Vaccine (3+ yrs) 00:00:00 [facility] Influenza Virus 2014-04-02 Completed [facility] Vaccine (3+ yrs) 00:00:00 [facility] Influenza Virus 2014-04-02 Completed [facility] Vaccine (3+ yrs) 00:00:00 [facility] Influenza Virus 2014-04-02 Completed [facility] Vaccine (3+ yrs) 00:00:00 [facility] Influenza Virus 2014-04-02 Completed [facility] Vaccine (3+ yrs) 00:00:00 [facility] Influenza Virus 2014-04-02 Completed [facility] Vaccine (3+ yrs) 00:00:00 [facility] Influenza Virus 2014-04-02 Completed [facility] Vaccine (3+ yrs) 00:00:00 [facility] Influenza Virus 2014-04-02 Completed [facility] Vaccine (3+ yrs) 00:00:00 [facility] Influenza Virus 2014-04-02 Completed [facility] Vaccine (3+ yrs) 00:00:00 [facility] Influenza Virus 2014-04-02 Completed [facility] Vaccine (3+ yrs) 00:00:00 [facility] Influenza Virus 2014-04-02 Completed [facility] Vaccine (3+ yrs) 00:00:00 [facility] Influenza Virus 2014-04-02 Completed [facility] Vaccine (3+ yrs) 00:00:00 [facility] Influenza Virus 2014-04-02 Completed [facility] Vaccine (3+ yrs) 00:00:00 [facility] Influenza Virus 2014-04-02 Completed [facility] Vaccine (3+ yrs) 00:00:00 [facility] Influenza Virus 2014-04-02 Completed [facility] Vaccine (3+ yrs) 00:00:00 [facility] Influenza Virus 2014-04-02 Completed [facility] Vaccine (3+ yrs) 00:00:00 [facility] Influenza Virus 2014-04-02 Completed [facility] Vaccine (3+ yrs) 00:00:00 [facility] Influenza Virus 2014-04-02 Completed [facility] Vaccine (3+ yrs) 00:00:00 [facility] Influenza Virus 2014-04-02 Completed [facility] Vaccine (3+ yrs) 00:00:00 [facility] Influenza Virus 2014-04-02 Completed [facility] Vaccine (3+ yrs) 00:00:00 [facility] Influenza Virus 2014-04-02 Completed [facility] Vaccine (3+ yrs) 00:00:00 [facility] Influenza Virus 2014-04-02 Completed [facility] Vaccine (3+ yrs) 00:00:00 [facility] Influenza Virus 2013-05-22 Completed [facility] Vaccine (3+ yrs) 00:00:00 [facility] Meningococcal 2013-05-22 Completed [facility] Polysaccharide 00:00:00 [place] [facility] (groups A, C, Y and Branc h W-135) conjugate vaccine (MCV4P) TDAP 2013-05-22 Completed [facility] 00:00:00 [facility] Influenza Virus 2013-05-22 Completed [facility] of Vaccine (3+ yrs) 00:00:00 [facility] Meningococcal 2013-05-22 Completed [facility] Polysaccharide 00:00:00 [place] [facility] (groups A, C, Y and Branc h W-135) conjugate vaccine (MCV4P) TDAP 2013-05-22 Completed [facility] 00:00:00 [facility] Influenza Virus 2013-05-22 Completed [facility] Vaccine (3+ yrs) 00:00:00 [facility] Meningococcal 2013-05-22 Completed [facility] Polysaccharide 00:00:00 [place] [facility] (groups A, C, Y and Branc h W-135) conjugate vaccine (MCV4P) TDAP 2013-05-22 Completed [facility] 00:00:00 [facility] Influenza Virus 2013-05-22 Completed [facility] Vaccine (3+ yrs) 00:00:00 [facility] Meningococcal 2013-05-22 Completed [facility] Polysaccharide 00:00:00 [place] [facility] (groups A, C, Y and Branc h W-135) conjugate vaccine (MCV4P) TDAP 2013-05-22 Completed [facility] 00:00:00 [facility] Influenza Virus 2013-05-22 Completed [facility] Vaccine (3+ yrs) 00:00:00 [facility] Meningococcal 2013-05-22 Completed [facility] Polysaccharide 00:00:00 [place] [facility] (groups A, C, Y and Branc h W-135) conjugate vaccine (MCV4P) TDAP 2013-05-22 Completed [facility] 00:00:00 [facility] Influenza Virus 2013-05-22 Completed [facility] Vaccine (3+ yrs) 00:00:00 [facility] Meningococcal 2013-05-22 Completed [facility] Polysaccharide 00:00:00 [place] [facility] (groups A, C, Y and Branc h W-135) conjugate vaccine (MCV4P) TDAP 2013-05-22 Completed [facility] 00:00:00 [facility] Influenza Virus 2013-05-22 Completed [facility] Vaccine (3+ yrs) 00:00:00 [facility] Meningococcal 2013-05-22 Completed [facility] Polysaccharide 00:00:00 [place] [facility] (groups A, C, Y and Branc h W-135) conjugate vaccine (MCV4P) TDAP 2013-05-22 Completed [facility] 00:00:00 [facility] Influenza Virus 2013-05-22 Completed [facility] Vaccine (3+ yrs) 00:00:00 [facility] Meningococcal 2013-05-22 Completed [facility] Polysaccharide 00:00:00 [place] [facility] (groups A, C, Y and Branc h W-135) conjugate vaccine (MCV4P) TDAP 2013-05-22 Completed [facility] 00:00:00 [facility] Influenza Virus 2013-05-22 Completed [facility] Vaccine (3+ yrs) 00:00:00 [facility] Meningococcal 2013-05-22 Completed [facility] Polysaccharide 00:00:00 [place] [facility] (groups A, C, Y and Branc h W-135) conjugate vaccine (MCV4P) TDAP 2013-05-22 Completed [facility] 00:00:00 [facility] Influenza Virus 2013-05-22 Completed [facility] Vaccine (3+ yrs) 00:00:00 [facility] Meningococcal 2013-05-22 Completed [facility] Polysaccharide 00:00:00 [place] [facility] (groups A, C, Y and Branc h W-135) conjugate vaccine (MCV4P) TDAP 2013-05-22 Completed [facility] 00:00:00 [facility] Influenza Virus 2013-05-22 Completed [facility] of Vaccine (3+ yrs) 00:00:00 [facility] Meningococcal 2013-05-22 Completed [facility] Polysaccharide 00:00:00 [place] [facility] (groups A, C, Y and Branc h W-135) conjugate vaccine (MCV4P) TDAP 2013-05-22 Completed [facility] 00:00:00 [facility] Influenza Virus 2013-05-22 Completed [facility] Vaccine (3+ yrs) 00:00:00 [facility] Meningococcal 2013-05-22 Completed [facility] Polysaccharide 00:00:00 [place] [facility] (groups A, C, Y and Branc h W-135) conjugate vaccine (MCV4P) TDAP 2013-05-22 Completed [facility] 00:00:00 [facility] Influenza Virus 2013-05-22 Completed [facility] Vaccine (3+ yrs) 00:00:00 [facility] Meningococcal 2013-05-22 Completed [facility] Polysaccharide 00:00:00 [place] [facility] (groups A, C, Y and Branc h W-135) conjugate vaccine (MCV4P) TDAP 2013-05-22 Completed [facility] 00:00:00 [facility] Influenza Virus 2013-05-22 Completed [facility] of Vaccine (3+ yrs) 00:00:00 [facility] Meningococcal 2013-05-22 Completed [facility] Polysaccharide 00:00:00 [place] [facility] (groups A, C, Y and Branc h W-135) conjugate vaccine (MCV4P) TDAP 2013-05-22 Completed [facility] 00:00:00 [facility] Influenza Virus 2013-05-22 Completed [facility] Vaccine (3+ yrs) 00:00:00 [facility] Meningococcal 2013-05-22 Completed [facility] Polysaccharide 00:00:00 [place] [facility] (groups A, C, Y and Branc h W-135) conjugate vaccine (MCV4P) TDAP 2013-05-22 Completed [facility] 00:00:00 [facility] Influenza Virus 2013-05-22 Completed [facility] of Vaccine (3+ yrs) 00:00:00 [facility] Meningococcal 2013-05-22 Completed [facility] Polysaccharide 00:00:00 [place] [facility] (groups A, C, Y and Branc h W-135) conjugate vaccine (MCV4P) TDAP 2013-05-22 Completed [facility] 00:00:00 [facility] Influenza Virus 2013-05-22 Completed [facility] of Vaccine (3+ yrs) 00:00:00 [facility] Meningococcal 2013-05-22 Completed [facility] Polysaccharide 00:00:00 [place] [facility] (groups A, C, Y and Branc h W-135) conjugate vaccine (MCV4P) TDAP 2013-05-22 Completed [facility] 00:00:00 [facility] Influenza Virus 2013-05-22 Completed [facility] of Vaccine (3+ yrs) 00:00:00 [facility] Meningococcal 2013-05-22 Completed [facility] Polysaccharide 00:00:00 [place] [facility] (groups A, C, Y and Branc h W-135) conjugate vaccine (MCV4P) TDAP 2013-05-22 Completed [facility] 00:00:00 [facility] Influenza Virus 2013-05-22 Completed [facility] of Vaccine (3+ yrs) 00:00:00 [facility] Meningococcal 2013-05-22 Completed [facility] Polysaccharide 00:00:00 [place] [facility] (groups A, C, Y and Branc h W-135) conjugate vaccine (MCV4P) TDAP 2013-05-22 Completed [facility] 00:00:00 [facility] Influenza Virus 2013-05-22 Completed [facility] Vaccine (3+ yrs) 00:00:00 [facility] Meningococcal 2013-05-22 Completed [facility] Polysaccharide 00:00:00 [place] [facility] (groups A, C, Y and Branc h W-135) conjugate vaccine (MCV4P) TDAP 2013-05-22 Completed [facility] 00:00:00 [facility] Influenza Virus 2013-05-22 Completed [facility] Vaccine (3+ yrs) 00:00:00 [facility] Meningococcal 2013-05-22 Completed [facility] Polysaccharide 00:00:00 [place] [facility] (groups A, C, Y and Branc h W-135) conjugate vaccine (MCV4P) TDAP 2013-05-22 Completed [facility] 00:00:00 [facility] Influenza Virus 2013-05-22 Completed [facility] Vaccine (3+ yrs) 00:00:00 [facility] Meningococcal 2013-05-22 Completed [facility] Polysaccharide 00:00:00 [place] [facility] (groups A, C, Y and Branc h W-135) conjugate vaccine (MCV4P) TDAP 2013-05-22 Completed [facility] 00:00:00 [facility] Influenza Virus 2013-05-22 Completed [facility] Vaccine (3+ yrs) 00:00:00 [facility] Meningococcal 2013-05-22 Completed [facility] Polysaccharide 00:00:00 [place] [facility] (groups A, C, Y and Branc h W-135) conjugate vaccine (MCV4P) TDAP 2013-05-22 Completed [facility] 00:00:00 [facility] Influenza Virus 2013-05-22 Completed [facility] of Vaccine (3+ yrs) 00:00:00 [facility] Meningococcal 2013-05-22 Completed [facility] Polysaccharide 00:00:00 [place] [facility] (groups A, C, Y and Branc h W-135) conjugate vaccine (MCV4P) TDAP 2013-05-22 Completed [facility] 00:00:00 [facility] Influenza Virus 2013-05-22 Completed [facility] Vaccine (3+ yrs) 00:00:00 [facility] Meningococcal 2013-05-22 Completed [facility] Polysaccharide 00:00:00 [place] [facility] (groups A, C, Y and Branc h W-135) conjugate vaccine (MCV4P) TDAP 2013-05-22 Completed [facility] 00:00:00 [facility] Influenza Virus 2013-05-22 Completed [facility] of Vaccine (3+ yrs) 00:00:00 [facility] Meningococcal 2013-05-22 Completed [facility] Polysaccharide 00:00:00 [place] [facility] (groups A, C, Y and Branc h W-135) conjugate vaccine (MCV4P) TDAP 2013-05-22 Completed [facility] 00:00:00 [facility] Influenza Virus 2013-05-22 Completed [facility] Vaccine (3+ yrs) 00:00:00 [facility] Meningococcal 2013-05-22 Completed [facility] Polysaccharide 00:00:00 [place] [facility] (groups A, C, Y and Branc h W-135) conjugate vaccine (MCV4P) TDAP 2013-05-22 Completed [facility] 00:00:00 [facility] Influenza Virus 2013-05-22 Completed [facility] Vaccine (3+ yrs) 00:00:00 [facility] Meningococcal 2013-05-22 Completed [facility] Polysaccharide 00:00:00 [place] [facility] (groups A, C, Y and Branc h W-135) conjugate vaccine (MCV4P) TDAP 2013-05-22 Completed [facility] 00:00:00 [facility] Influenza Virus 2013-05-22 Completed [facility] Vaccine (3+ yrs) 00:00:00 [facility] Meningococcal 2013-05-22 Completed [facility] Polysaccharide 00:00:00 [place] [facility] (groups A, C, Y and Branc h W-135) conjugate vaccine (MCV4P) TDAP 2013-05-22 Completed [facility] 00:00:00 [facility] Influenza Virus 2013-05-22 Completed [facility] Vaccine (3+ yrs) 00:00:00 [facility] Meningococcal 2013-05-22 Completed [facility] Polysaccharide 00:00:00 [place] [facility] (groups A, C, Y and Branc h W-135) conjugate vaccine (MCV4P) TDAP 2013-05-22 Completed [facility] 00:00:00 [facility] Influenza Virus 2013-05-22 Completed [facility] Vaccine (3+ yrs) 00:00:00 [facility] Meningococcal 2013-05-22 Completed [facility] Polysaccharide 00:00:00 [place] [facility] (groups A, C, Y and Branc h W-135) conjugate vaccine (MCV4P) TDAP 2013-05-22 Completed [facility] 00:00:00 [facility] Influenza Virus 2013-05-22 Completed [facility] Vaccine (3+ yrs) 00:00:00 [facility] Meningococcal 2013-05-22 Completed [facility] Polysaccharide 00:00:00 [place] [facility] (groups A, C, Y and Branc h W-135) conjugate vaccine (MCV4P) TDAP 2013-05-22 Completed [facility] 00:00:00 [facility] Influenza Virus 2013-05-22 Completed [facility] Vaccine (3+ yrs) 00:00:00 [facility] Meningococcal 2013-05-22 Completed [facility] Polysaccharide 00:00:00 [place] [facility] (groups A, C, Y and Branc h W-135) conjugate vaccine (MCV4P) TDAP 2013-05-22 Completed [facility] 00:00:00 [facility] Influenza Virus 2013-05-22 Completed [facility] Vaccine (3+ yrs) 00:00:00 [facility] Meningococcal 2013-05-22 Completed [facility] Polysaccharide 00:00:00 [place] [facility] (groups A, C, Y and Branc h W-135) conjugate vaccine (MCV4P) TDAP 2013-05-22 Completed [facility] 00:00:00 [facility] Influenza Virus 2013-05-22 Completed [facility] Vaccine (3+ yrs) 00:00:00 [facility] Meningococcal 2013-05-22 Completed [facility] Polysaccharide 00:00:00 [place] [facility] (groups A, C, Y and Branc h W-135) conjugate vaccine (MCV4P) TDAP 2013-05-22 Completed [facility] 00:00:00 [facility] Influenza Virus 2013-05-22 Completed [facility] Vaccine (3+ yrs) 00:00:00 [facility] Meningococcal 2013-05-22 Completed [facility] Polysaccharide 00:00:00 [place] [facility] (groups A, C, Y and Branc h W-135) conjugate vaccine (MCV4P) TDAP 2013-05-22 Completed [facility] 00:00:00 [facility] Influenza Virus 2013-05-22 Completed [facility] Vaccine (3+ yrs) 00:00:00 [facility] Meningococcal 2013-05-22 Completed [facility] Polysaccharide 00:00:00 [place] [facility] (groups A, C, Y and Branc h W-135) conjugate vaccine (MCV4P) TDAP 2013-05-22 Completed [facility] 00:00:00 [facility] Influenza Virus 2013-05-22 Completed [facility] Vaccine (3+ yrs) 00:00:00 [facility] Meningococcal 2013-05-22 Completed [facility] Polysaccharide 00:00:00 [place] [facility] (groups A, C, Y and Branc h W-135) conjugate vaccine (MCV4P) TDAP 2013-05-22 Completed [facility] 00:00:00 [facility] Influenza Virus 2013-05-22 Completed [facility] of Vaccine (3+ yrs) 00:00:00 [facility] Meningococcal 2013-05-22 Completed [facility] Polysaccharide 00:00:00 [place] [facility] (groups A, C, Y and Branc h W-135) conjugate vaccine (MCV4P) TDAP 2013-05-22 Completed [facility] 00:00:00 [facility] Influenza Virus 2013-05-22 Completed [facility] Vaccine (3+ yrs) 00:00:00 [facility] Meningococcal 2013-05-22 Completed [facility] Polysaccharide 00:00:00 [place] [facility] (groups A, C, Y and Branc h W-135) conjugate vaccine (MCV4P) TDAP 2013-05-22 Completed [facility] 00:00:00 [facility] Influenza Virus 2013-05-22 Completed [facility] Vaccine (3+ yrs) 00:00:00 [facility] Meningococcal 2013-05-22 Completed [facility] Polysaccharide 00:00:00 [place] [facility] (groups A, C, Y and Branc h W-135) conjugate vaccine (MCV4P) TDAP 2013-05-22 Completed [facility] 00:00:00 [facility] Influenza Virus 2013-05-22 Completed [facility] Vaccine (3+ yrs) 00:00:00 [facility] Meningococcal 2013-05-22 Completed [facility] Polysaccharide 00:00:00 [place] [facility] (groups A, C, Y and Branc h W-135) conjugate vaccine (MCV4P) TDAP 2013-05-22 Completed [facility] 00:00:00 [facility] Influenza Virus 2013-05-22 Completed [facility] of Vaccine (3+ yrs) 00:00:00 [facility] Meningococcal 2013-05-22 Completed [facility] Polysaccharide 00:00:00 [place] [facility] (groups A, C, Y and Branc h W-135) conjugate vaccine (MCV4P) TDAP 2013-05-22 Completed [facility] 00:00:00 [facility] Influenza Virus 2013-05-22 Completed [facility] of Vaccine (3+ yrs) 00:00:00 [facility] Meningococcal 2013-05-22 Completed [facility] Polysaccharide 00:00:00 [place] [facility] (groups A, C, Y and Branc h W-135) conjugate vaccine (MCV4P) TDAP 2013-05-22 Completed [facility] 00:00:00 [facility] Influenza Virus 2013-05-22 Completed [facility] Vaccine (3+ yrs) 00:00:00 [facility] Meningococcal 2013-05-22 Completed [facility] Polysaccharide 00:00:00 [place] [facility] (groups A, C, Y and Branc h W-135) conjugate vaccine (MCV4P) TDAP 2013-05-22 Completed [facility] 00:00:00 [facility] Influenza Virus 2013-05-22 Completed [facility] of Vaccine (3+ yrs) 00:00:00 [facility] Meningococcal 2013-05-22 Completed [facility] Polysaccharide 00:00:00 [place] [facility] (groups A, C, Y and Branc h W-135) conjugate vaccine (MCV4P) TDAP 2013-05-22 Completed [facility] 00:00:00 [facility] Influenza Virus 2013-05-22 Completed [facility] Vaccine (3+ yrs) 00:00:00 [facility] Meningococcal 2013-05-22 Completed [facility] Polysaccharide 00:00:00 [place] [facility] (groups A, C, Y and Branc h W-135) conjugate vaccine (MCV4P) TDAP 2013-05-22 Completed [facility] 00:00:00 [facility] Influenza Virus 2013-05-22 Completed [facility] Vaccine (3+ yrs) 00:00:00 [facility] Meningococcal 2013-05-22 Completed [facility] Polysaccharide 00:00:00 [place] [facility] (groups A, C, Y and Branc h W-135) conjugate vaccine (MCV4P) TDAP 2013-05-22 Completed [facility] 00:00:00 [facility] Influenza Virus 2013-05-22 Completed [facility] of Vaccine (3+ yrs) 00:00:00 [facility] Meningococcal 2013-05-22 Completed [facility] Polysaccharide 00:00:00 [place] [facility] (groups A, C, Y and Branc h W-135) conjugate vaccine (MCV4P) TDAP 2013-05-22 Completed [facility] 00:00:00 [facility] Influenza Virus 2013-05-22 Completed [facility] of Vaccine (3+ yrs) 00:00:00 [facility] Meningococcal 2013-05-22 Completed [facility] Polysaccharide 00:00:00 [place] [facility] (groups A, C, Y and Branc h W-135) conjugate vaccine (MCV4P) TDAP 2013-05-22 Completed [facility] 00:00:00 [facility] Influenza Virus 2013-05-22 Completed [facility] of Vaccine (3+ yrs) 00:00:00 [facility] Meningococcal 2013-05-22 Completed [facility] Polysaccharide 00:00:00 [place] [facility] (groups A, C, Y and Branc h W-135) conjugate vaccine (MCV4P) TDAP 2013-05-22 Completed [facility] 00:00:00 [facility] Influenza Virus 2013-05-22 Completed [facility] of Vaccine (3+ yrs) 00:00:00 [facility] Meningococcal 2013-05-22 Completed [facility] Polysaccharide 00:00:00 [place] [facility] (groups A, C, Y and Branc h W-135) conjugate vaccine (MCV4P) TDAP 2013-05-22 Completed [facility] 00:00:00 [facility] Influenza Virus 2013-05-22 Completed [facility] of Vaccine (3+ yrs) 00:00:00 [facility] Meningococcal 2013-05-22 Completed [facility] Polysaccharide 00:00:00 [place] [facility] (groups A, C, Y and Branc h W-135) conjugate vaccine (MCV4P) TDAP 2013-05-22 Completed [facility] 00:00:00 [facility] Influenza Virus 2013-05-22 Completed [facility] of Vaccine (3+ yrs) 00:00:00 [facility] Meningococcal 2013-05-22 Completed [facility] Polysaccharide 00:00:00 [place] [facility] (groups A, C, Y and Branc h W-135) conjugate vaccine (MCV4P) TDAP 2013-05-22 Completed [facility] 00:00:00 [facility] Influenza Virus 2013-05-22 Completed [facility] of Vaccine (3+ yrs) 00:00:00 [facility] Meningococcal 2013-05-22 Completed [facility] Polysaccharide 00:00:00 [place] [facility] (groups A, C, Y and Branc h W-135) conjugate vaccine (MCV4P) TDAP 2013-05-22 Completed [facility] 00:00:00 [facility] Influenza Virus 2013-05-22 Completed [facility] of Vaccine (3+ yrs) 00:00:00 [facility] Meningococcal 2013-05-22 Completed [facility] Polysaccharide 00:00:00 [place] [facility] (groups A, C, Y and Branc h W-135) conjugate vaccine (MCV4P) TDAP 2013-05-22 Completed [facility] 00:00:00 [facility] Influenza Virus 2013-05-22 Completed [facility] Vaccine (3+ yrs) 00:00:00 [facility] Meningococcal 2013-05-22 Completed [facility] Polysaccharide 00:00:00 [place] [facility] (groups A, C, Y and Branc h W-135) conjugate vaccine (MCV4P) TDAP 2013-05-22 Completed [facility] 00:00:00 [facility] Influenza Virus 2013-05-22 Completed [facility] of Vaccine (3+ yrs) 00:00:00 [facility] Meningococcal 2013-05-22 Completed [facility] Polysaccharide 00:00:00 [place] [facility] (groups A, C, Y and Branc h W-135) conjugate vaccine (MCV4P) TDAP 2013-05-22 Completed [facility] 00:00:00 [facility] Influenza Virus 2013-05-22 Completed [facility] Vaccine (3+ yrs) 00:00:00 [facility] Meningococcal 2013-05-22 Completed [facility] Polysaccharide 00:00:00 [place] [facility] (groups A, C, Y and Branc h W-135) conjugate vaccine (MCV4P) TDAP 2013-05-22 Completed [facility] 00:00:00 [facility] Influenza Virus 2013-05-22 Completed [facility] Vaccine (3+ yrs) 00:00:00 [facility] Meningococcal 2013-05-22 Completed [facility] Polysaccharide 00:00:00 [place] [facility] (groups A, C, Y and Branc h W-135) conjugate vaccine (MCV4P) TDAP 2013-05-22 Completed [facility] 00:00:00 [facility] Influenza Virus 2013-05-22 Completed [facility] Vaccine (3+ yrs) 00:00:00 [facility] Meningococcal 2013-05-22 Completed [facility] Polysaccharide 00:00:00 [place] [facility] (groups A, C, Y and Branc h W-135) conjugate vaccine (MCV4P) TDAP 2013-05-22 Completed [facility] 00:00:00 [facility] Influenza Virus 2013-05-22 Completed [facility] Vaccine (3+ yrs) 00:00:00 [facility] Meningococcal 2013-05-22 Completed [facility] Polysaccharide 00:00:00 [place] [facility] (groups A, C, Y and Branc h W-135) conjugate vaccine (MCV4P) TDAP 2013-05-22 Completed [facility] 00:00:00 [facility] Influenza Virus 2013-05-22 Completed [facility] of Vaccine (3+ yrs) 00:00:00 [facility] Meningococcal 2013-05-22 Completed [facility] Polysaccharide 00:00:00 [place] [facility] (groups A, C, Y and Branc h W-135) conjugate vaccine (MCV4P) TDAP 2013-05-22 Completed [facility] 00:00:00 [facility] Influenza Virus 2013-05-22 Completed [facility] of Vaccine (3+ yrs) 00:00:00 [facility] Meningococcal 2013-05-22 Completed [facility] Polysaccharide 00:00:00 [place] [facility] (groups A, C, Y and Branc h W-135) conjugate vaccine (MCV4P) TDAP 2013-05-22 Completed [facility] 00:00:00 [facility] Influenza Virus 2013-05-22 Completed [facility] Vaccine (3+ yrs) 00:00:00 [facility] Meningococcal 2013-05-22 Completed [facility] Polysaccharide 00:00:00 [place] [facility] (groups A, C, Y and Branc h W-135) conjugate vaccine (MCV4P) TDAP 2013-05-22 Completed [facility] 00:00:00 [facility] Influenza Virus 2013-05-22 Completed [facility] of Vaccine (3+ yrs) 00:00:00 [facility] Meningococcal 2013-05-22 Completed [facility] Polysaccharide 00:00:00 [place] [facility] (groups A, C, Y and Branc h W-135) conjugate vaccine (MCV4P) TDAP 2013-05-22 Completed [facility] 00:00:00 [facility] Influenza Virus 2013-05-22 Completed [facility] Vaccine (3+ yrs) 00:00:00 [facility] Meningococcal 2013-05-22 Completed [facility] Polysaccharide 00:00:00 [place] [facility] (groups A, C, Y and Branc h W-135) conjugate vaccine (MCV4P) TDAP 2013-05-22 Completed [facility] 00:00:00 [facility] Influenza Virus 2013-05-22 Completed [facility] of Vaccine (3+ yrs) 00:00:00 [facility] Meningococcal 2013-05-22 Completed [facility] Polysaccharide 00:00:00 [place] [facility] (groups A, C, Y and Branc h W-135) conjugate vaccine (MCV4P) TDAP 2013-05-22 Completed [facility] 00:00:00 [facility] Influenza Virus 2013-05-22 Completed [facility] of Vaccine (3+ yrs) 00:00:00 [facility] Meningococcal 2013-05-22 Completed [facility] Polysaccharide 00:00:00 [place] [facility] (groups A, C, Y and Branc h W-135) conjugate vaccine (MCV4P) TDAP 2013-05-22 Completed [facility] 00:00:00 [facility] Influenza Virus 2013-05-22 Completed [facility] Vaccine (3+ yrs) 00:00:00 [facility] Meningococcal 2013-05-22 Completed [facility] Polysaccharide 00:00:00 [place] [facility] (groups A, C, Y and Branc h W-135) conjugate vaccine (MCV4P) TDAP 2013-05-22 Completed [facility] 00:00:00 [facility] Influenza Virus 2013-05-22 Completed [facility] Vaccine (3+ yrs) 00:00:00 [facility] Meningococcal 2013-05-22 Completed [facility] Polysaccharide 00:00:00 [place] [facility] (groups A, C, Y and Branc h W-135) conjugate vaccine (MCV4P) TDAP 2013-05-22 Completed [facility] 00:00:00 [facility] Influenza Virus 2013-05-22 Completed [facility] Vaccine (3+ yrs) 00:00:00 [facility] Meningococcal 2013-05-22 Completed [facility] Polysaccharide 00:00:00 [place] [facility] (groups A, C, Y and Branc h W-135) conjugate vaccine (MCV4P) TDAP 2013-05-22 Completed [facility] 00:00:00 [facility] Influenza Virus 2013-05-22 Completed [facility] Vaccine (3+ yrs) 00:00:00 [facility] Meningococcal 2013-05-22 Completed [facility] Polysaccharide 00:00:00 [place] [facility] (groups A, C, Y and Branc h W-135) conjugate vaccine (MCV4P) TDAP 2013-05-22 Completed [facility] 00:00:00 [facility] Influenza Virus 2013-05-22 Completed [facility] Vaccine (3+ yrs) 00:00:00 [facility] Meningococcal 2013-05-22 Completed [facility] Polysaccharide 00:00:00 [place] [facility] (groups A, C, Y and Branc h W-135) conjugate vaccine (MCV4P) TDAP 2013-05-22 Completed [facility] 00:00:00 [facility] Influenza Virus 2013-05-22 Completed [facility] of Vaccine (3+ yrs) 00:00:00 [facility] Meningococcal 2013-05-22 Completed [facility] Polysaccharide 00:00:00 [place] [facility] (groups A, C, Y and Branc h W-135) conjugate vaccine (MCV4P) TDAP 2013-05-22 Completed [facility] 00:00:00 [facility] Influenza Virus 2013-05-22 Completed [facility] Vaccine (3+ yrs) 00:00:00 [facility] Meningococcal 2013-05-22 Completed [facility] Polysaccharide 00:00:00 [place] [facility] (groups A, C, Y and Branc h W-135) conjugate vaccine (MCV4P) TDAP 2013-05-22 Completed [facility] 00:00:00 [facility] Influenza Virus 2013-05-22 Completed [facility] Vaccine (3+ yrs) 00:00:00 [facility] Meningococcal 2013-05-22 Completed [facility] Polysaccharide 00:00:00 [place] [facility] (groups A, C, Y and Branc h W-135) conjugate vaccine (MCV4P) TDAP 2013-05-22 Completed [facility] 00:00:00 [facility] Influenza Virus 2013-05-22 Completed [facility] Vaccine (3+ yrs) 00:00:00 [facility] Meningococcal 2013-05-22 Completed [facility] Polysaccharide 00:00:00 [place] [facility] (groups A, C, Y and Branc h W-135) conjugate vaccine (MCV4P) TDAP 2013-05-22 Completed [facility] 00:00:00 [facility] Influenza Virus 2013-05-22 Completed [facility] Vaccine (3+ yrs) 00:00:00 [facility] Meningococcal 2013-05-22 Completed [facility] Polysaccharide 00:00:00 [place] [facility] (groups A, C, Y and Branc h W-135) conjugate vaccine (MCV4P) TDAP 2013-05-22 Completed [facility] 00:00:00 [facility] Influenza Virus 2013-05-22 Completed [facility] Vaccine (3+ yrs) 00:00:00 [facility] Meningococcal 2013-05-22 Completed [facility] Polysaccharide 00:00:00 [place] [facility] (groups A, C, Y and Branc h W-135) conjugate vaccine (MCV4P) TDAP 2013-05-22 Completed [facility] 00:00:00 [facility] Influenza Virus 2013-05-22 Completed [facility] Vaccine (3+ yrs) 00:00:00 [facility] Meningococcal 2013-05-22 Completed [facility] Polysaccharide 00:00:00 [place] [facility] (groups A, C, Y and Branc h W-135) conjugate vaccine (MCV4P) TDAP 2013-05-22 Completed [facility] 00:00:00 [facility] Influenza Virus 2013-05-22 Completed [facility] Vaccine (3+ yrs) 00:00:00 [facility] Meningococcal 2013-05-22 Completed [facility] Polysaccharide 00:00:00 [place] [facility] (groups A, C, Y and Branc h W-135) conjugate vaccine (MCV4P) TDAP 2013-05-22 Completed [facility] 00:00:00 [facility] Influenza Virus 2013-05-22 Completed [facility] Vaccine (3+ yrs) 00:00:00 [facility] Meningococcal 2013-05-22 Completed [facility] Polysaccharide 00:00:00 [place] [facility] (groups A, C, Y and Branc h W-135) conjugate vaccine (MCV4P) TDAP 2013-05-22 Completed [facility] 00:00:00 [facility] Influenza Virus 2013-05-22 Completed [facility] Vaccine (3+ yrs) 00:00:00 [facility] Meningococcal 2013-05-22 Completed [facility] Polysaccharide 00:00:00 [place] [facility] (groups A, C, Y and Branc h W-135) conjugate vaccine (MCV4P) TDAP 2013-05-22 Completed [facility] 00:00:00 [facility] Influenza Virus 2013-05-22 Completed [facility] Vaccine (3+ yrs) 00:00:00 [facility] Meningococcal 2013-05-22 Completed [facility] Polysaccharide 00:00:00 [place] [facility] (groups A, C, Y and Branc h W-135) conjugate vaccine (MCV4P) TDAP 2013-05-22 Completed [facility] 00:00:00 [facility] Influenza Virus 2013-05-22 Completed [facility] Vaccine (3+ yrs) 00:00:00 [facility] Meningococcal 2013-05-22 Completed [facility] Polysaccharide 00:00:00 [place] [facility] (groups A, C, Y and Branc h W-135) conjugate vaccine (MCV4P) TDAP 2013-05-22 Completed [facility] 00:00:00 [facility] Influenza Virus 2013-05-22 Completed [facility] Vaccine (3+ yrs) 00:00:00 [facility] Meningococcal 2013-05-22 Completed [facility] Polysaccharide 00:00:00 [place] [facility] (groups A, C, Y and Branc h W-135) conjugate vaccine (MCV4P) TDAP 2013-05-22 Completed [facility] 00:00:00 [facility] Influenza Virus 2013-05-22 Completed [facility] Vaccine (3+ yrs) 00:00:00 [facility] Meningococcal 2013-05-22 Completed [facility] Polysaccharide 00:00:00 [place] [facility] (groups A, C, Y and Branc h W-135) conjugate vaccine (MCV4P) TDAP 2013-05-22 Completed [facility] 00:00:00 [facility] Influenza Virus 2013-05-22 Completed [facility] Vaccine (3+ yrs) 00:00:00 [facility] Meningococcal 2013-05-22 Completed [facility] Polysaccharide 00:00:00 [place] [facility] (groups A, C, Y and Branc h W-135) conjugate vaccine (MCV4P) TDAP 2013-05-22 Completed [facility] 00:00:00 [facility] Influenza Virus 2013-05-22 Completed [facility] Vaccine (3+ yrs) 00:00:00 [facility] Meningococcal 2013-05-22 Completed [facility] Polysaccharide 00:00:00 [place] [facility] (groups A, C, Y and Branc h W-135) conjugate vaccine (MCV4P) TDAP 2013-05-22 Completed [facility] 00:00:00 [facility] Influenza Virus 2013-05-22 Completed [facility] Vaccine (3+ yrs) 00:00:00 [facility] Meningococcal 2013-05-22 Completed [facility] Polysaccharide 00:00:00 [place] [facility] (groups A, C, Y and Branc h W-135) conjugate vaccine (MCV4P) TDAP 2013-05-22 Completed [facility] 00:00:00 [facility] Influenza Virus 2013-05-22 Completed [facility] Vaccine (3+ yrs) 00:00:00 [facility] Meningococcal 2013-05-22 Completed [facility] Polysaccharide 00:00:00 [place] [facility] (groups A, C, Y and Branc h W-135) conjugate vaccine (MCV4P) TDAP 2013-05-22 Completed [facility] 00:00:00 [facility] Influenza Virus 2013-05-22 Completed [facility] Vaccine (3+ yrs) 00:00:00 [facility] Meningococcal 2013-05-22 Completed [facility] Polysaccharide 00:00:00 [place] [facility] (groups A, C, Y and Branc h W-135) conjugate vaccine (MCV4P) TDAP 2013-05-22 Completed [facility] 00:00:00 [facility] Influenza Virus 2013-05-22 Completed [facility] Vaccine (3+ yrs) 00:00:00 [facility] Meningococcal 2013-05-22 Completed [facility] Polysaccharide 00:00:00 [place] [facility] (groups A, C, Y and Branc h W-135) conjugate vaccine (MCV4P) TDAP 2013-05-22 Completed [facility] 00:00:00 [facility] Influenza Virus 2013-05-22 Completed [facility] Vaccine (3+ yrs) 00:00:00 [facility] Meningococcal 2013-05-22 Completed [facility] Polysaccharide 00:00:00 [place] [facility] (groups A, C, Y and Branc h W-135) conjugate vaccine (MCV4P) TDAP 2013-05-22 Completed [facility] 00:00:00 [facility] Influenza Virus 2013-05-22 Completed [facility] Vaccine (3+ yrs) 00:00:00 [facility] Meningococcal 2013-05-22 Completed [facility] Polysaccharide 00:00:00 [place] [facility] (groups A, C, Y and Branc h W-135) conjugate vaccine (MCV4P) TDAP 2013-05-22 Completed [facility] 00:00:00 [facility] Influenza Virus 2013-05-22 Completed [facility] Vaccine (3+ yrs) 00:00:00 [facility] Meningococcal 2013-05-22 Completed [facility] Polysaccharide 00:00:00 [place] [facility] (groups A, C, Y and Branc h W-135) conjugate vaccine (MCV4P) TDAP 2013-05-22 Completed [facility] 00:00:00 [facility] Influenza Virus 2013-05-22 Completed [facility] Vaccine (3+ yrs) 00:00:00 [facility] Meningococcal 2013-05-22 Completed [facility] Polysaccharide 00:00:00 [place] [facility] (groups A, C, Y and Branc h W-135) conjugate vaccine (MCV4P) TDAP 2013-05-22 Completed [facility] 00:00:00 [facility] Influenza Virus 2013-05-22 Completed [facility] Vaccine (3+ yrs) 00:00:00 [facility] Meningococcal 2013-05-22 Completed [facility] Polysaccharide 00:00:00 [place] [facility] (groups A, C, Y and Branc h W-135) conjugate vaccine (MCV4P) TDAP 2013-05-22 Completed [facility] 00:00:00 [facility] Influenza Virus 2013-05-22 Completed [facility] Vaccine (3+ yrs) 00:00:00 [facility] Meningococcal 2013-05-22 Completed [facility] Polysaccharide 00:00:00 [place] [facility] (groups A, C, Y and Branc h W-135) conjugate vaccine (MCV4P) TDAP 2013-05-22 Completed [facility] 00:00:00 [facility] Influenza Virus 2013-05-22 Completed [facility] Vaccine (3+ yrs) 00:00:00 [facility] Meningococcal 2013-05-22 Completed [facility] Polysaccharide 00:00:00 [place] [facility] (groups A, C, Y and Branc h W-135) conjugate vaccine (MCV4P) TDAP 2013-05-22 Completed [facility] 00:00:00 [facility] Influenza Virus 2013-05-22 Completed [facility] Vaccine (3+ yrs) 00:00:00 [facility] Meningococcal 2013-05-22 Completed [facility] Polysaccharide 00:00:00 [place] [facility] (groups A, C, Y and Branc h W-135) conjugate vaccine (MCV4P) TDAP 2013-05-22 Completed [facility] 00:00:00 [facility] Influenza Virus 2013-05-22 Completed [facility] Vaccine (3+ yrs) 00:00:00 [facility] Meningococcal 2013-05-22 Completed [facility] Polysaccharide 00:00:00 [place] [facility] (groups A, C, Y and Branc h W-135) conjugate vaccine (MCV4P) TDAP 2013-05-22 Completed [facility] 00:00:00 [facility] Influenza Virus 2013-05-22 Completed [facility] Vaccine (3+ yrs) 00:00:00 [facility] Meningococcal 2013-05-22 Completed [facility] Polysaccharide 00:00:00 [place] [facility] (groups A, C, Y and Branc h W-135) conjugate vaccine (MCV4P) TDAP 2013-05-22 Completed [facility] 00:00:00 [facility] Influenza Virus 2013-05-22 Completed [facility] Vaccine (3+ yrs) 00:00:00 [facility] Meningococcal 2013-05-22 Completed [facility] Polysaccharide 00:00:00 [place] [facility] (groups A, C, Y and Branc h W-135) conjugate vaccine (MCV4P) TDAP 2013-05-22 Completed [facility] 00:00:00 [facility] Influenza Virus 2012-06-13 Completed [facility] Vaccine 00:00:00 [facility] Influenza Virus 2012-06-13 Completed [facility] Vaccine 00:00:00 [facility] Influenza Virus 2012-06-13 Completed [facility] Vaccine 00:00:00 [facility] Influenza Virus 2012-06-13 Completed [facility] Vaccine 00:00:00 [facility] Influenza Virus 2012-06-13 Completed [facility] Vaccine 00:00:00 [facility] Influenza Virus 2012-06-13 Completed [facility] Vaccine 00:00:00 [facility] Influenza Virus 2012-06-13 Completed [facility] Vaccine 00:00:00 [facility] Influenza Virus 2012-06-13 Completed [facility] Vaccine 00:00:00 [facility] Influenza Virus 2012-06-13 Completed [facility] Vaccine 00:00:00 [facility] Influenza Virus 2012-06-13 Completed [facility] Vaccine 00:00:00 [facility] Influenza Virus 2012-06-13 Completed [facility] Vaccine 00:00:00 [facility] Influenza Virus 2012-06-13 Completed [facility] Vaccine 00:00:00 [facility] Influenza Virus 2012-06-13 Completed [facility] Vaccine 00:00:00 [facility] Influenza Virus 2012-06-13 Completed [facility] Vaccine 00:00:00 [facility] Influenza Virus 2012-06-13 Completed [facility] Vaccine 00:00:00 [facility] Influenza Virus 2012-06-13 Completed [facility] Vaccine 00:00:00 [facility] Influenza Virus 2012-06-13 Completed [facility] Vaccine 00:00:00 [facility] Influenza Virus 2012-06-13 Completed [facility] Vaccine 00:00:00 [facility] Influenza Virus 2012-06-13 Completed [facility] Vaccine 00:00:00 [facility] Influenza Virus 2012-06-13 Completed [facility] Vaccine 00:00:00 [facility] Influenza Virus 2012-06-13 Completed [facility] Vaccine 00:00:00 [facility] Influenza Virus 2012-06-13 Completed [facility] Vaccine 00:00:00 [facility] Influenza Virus 2012-06-13 Completed [facility] Vaccine 00:00:00 [facility] Influenza Virus 2012-06-13 Completed [facility] Vaccine 00:00:00 [facility] Influenza Virus 2012-06-13 Completed [facility] Vaccine 00:00:00 [facility] Influenza Virus 2012-06-13 Completed [facility] Vaccine 00:00:00 [facility] Influenza Virus 2012-06-13 Completed [facility] Vaccine 00:00:00 [facility] Influenza Virus 2012-06-13 Completed [facility] Vaccine 00:00:00 [facility] Influenza Virus 2012-06-13 Completed [facility] Vaccine 00:00:00 [facility] Influenza Virus 2012-06-13 Completed [facility] Vaccine 00:00:00 [facility] Influenza Virus 2012-06-13 Completed [facility] Vaccine 00:00:00 [facility] Influenza Virus 2012-06-13 Completed [facility] Vaccine 00:00:00 [facility] Influenza Virus 2012-06-13 Completed [facility] Vaccine 00:00:00 [facility] Influenza Virus 2012-06-13 Completed [facility] Vaccine 00:00:00 [facility] Influenza Virus 2012-06-13 Completed [facility] Vaccine 00:00:00 [facility] Influenza Virus 2012-06-13 Completed [facility] Vaccine 00:00:00 [facility] Influenza Virus 2012-06-13 Completed [facility] Vaccine 00:00:00 [facility] Influenza Virus 2012-06-13 Completed [facility] Vaccine 00:00:00 [facility] Influenza Virus 2012-06-13 Completed [facility] Vaccine 00:00:00 [facility] Influenza Virus 2012-06-13 Completed [facility] Vaccine 00:00:00 [facility] Influenza Virus 2012-06-13 Completed [facility] Vaccine 00:00:00 [facility] Influenza Virus 2012-06-13 Completed [facility] Vaccine 00:00:00 [facility] Influenza Virus 2012-06-13 Completed [facility] Vaccine 00:00:00 [facility] Influenza Virus 2012-06-13 Completed [facility] Vaccine 00:00:00 [facility] Influenza Virus 2012-06-13 Completed [facility] Vaccine 00:00:00 [facility] Influenza Virus 2012-06-13 Completed [facility] Vaccine 00:00:00 [facility] Influenza Virus 2012-06-13 Completed [facility] Vaccine 00:00:00 [facility] Influenza Virus 2012-06-13 Completed [facility] Vaccine 00:00:00 [facility] Influenza Virus 2012-06-13 Completed [facility] Vaccine 00:00:00 [facility] Influenza Virus 2012-06-13 Completed [facility] Vaccine 00:00:00 [facility] Influenza Virus 2012-06-13 Completed [facility] Vaccine 00:00:00 [facility] Influenza Virus 2012-06-13 Completed [facility] Vaccine 00:00:00 [facility] Influenza Virus 2012-06-13 Completed [facility] Vaccine 00:00:00 [facility] Influenza Virus 2012-06-13 Completed [facility] Vaccine 00:00:00 [facility] Influenza Virus 2012-06-13 Completed [facility] Vaccine 00:00:00 [facility] Influenza Virus 2012-06-13 Completed [facility] Vaccine 00:00:00 [facility] Influenza Virus 2012-06-13 Completed [facility] Vaccine 00:00:00 [facility] Influenza Virus 2012-06-13 Completed [facility] Vaccine 00:00:00 [facility] Influenza Virus 2012-06-13 Completed [facility] Vaccine 00:00:00 [facility] Influenza Virus 2012-06-13 Completed [facility] Vaccine 00:00:00 [facility] Influenza Virus 2012-06-13 Completed [facility] Vaccine 00:00:00 [facility] Influenza Virus 2012-06-13 Completed [facility] Vaccine 00:00:00 [facility] Influenza Virus 2012-06-13 Completed [facility] Vaccine 00:00:00 [facility] Influenza Virus 2012-06-13 Completed [facility] Vaccine 00:00:00 [facility] Influenza Virus 2012-06-13 Completed [facility] Vaccine 00:00:00 [facility] Influenza Virus 2012-06-13 Completed [facility] Vaccine 00:00:00 [facility] Influenza Virus 2012-06-13 Completed [facility] Vaccine 00:00:00 [facility] Influenza Virus 2012-06-13 Completed [facility] Vaccine 00:00:00 [facility] Influenza Virus 2012-06-13 Completed [facility] Vaccine 00:00:00 [facility] Influenza Virus 2012-06-13 Completed [facility] Vaccine 00:00:00 [facility] Influenza Virus 2012-06-13 Completed [facility] Vaccine 00:00:00 [facility] Influenza Virus 2012-06-13 Completed [facility] Vaccine 00:00:00 [facility] Influenza Virus 2012-06-13 Completed [facility] Vaccine 00:00:00 [facility] Influenza Virus 2012-06-13 Completed [facility] Vaccine 00:00:00 [facility] Influenza Virus 2012-06-13 Completed [facility] Vaccine 00:00:00 [facility] Influenza Virus 2012-06-13 Completed [facility] Vaccine 00:00:00 [facility] Influenza Virus 2012-06-13 Completed [facility] Vaccine 00:00:00 [facility] Influenza Virus 2012-06-13 Completed [facility] Vaccine 00:00:00 [facility] Influenza Virus 2012-06-13 Completed [facility] Vaccine 00:00:00 [facility] Influenza Virus 2012-06-13 Completed [facility] Vaccine 00:00:00 [facility] Influenza Virus 2012-06-13 Completed [facility] Vaccine 00:00:00 [facility] Influenza Virus 2012-06-13 Completed [facility] Vaccine 00:00:00 [facility] Influenza Virus 2012-06-13 Completed [facility] Vaccine 00:00:00 [facility] Influenza Virus 2012-06-13 Completed [facility] Vaccine 00:00:00 [facility] Influenza Virus 2012-06-13 Completed [facility] Vaccine 00:00:00 [facility] Influenza Virus 2012-06-13 Completed [facility] Vaccine 00:00:00 [facility] Influenza Virus 2012-06-13 Completed [facility] Vaccine 00:00:00 [facility] Influenza Virus 2012-06-13 Completed [facility] Vaccine 00:00:00 [facility] Influenza Virus 2012-06-13 Completed [facility] Vaccine 00:00:00 [facility] Influenza Virus 2012-06-13 Completed [facility] Vaccine 00:00:00 [facility] Influenza Virus 2012-06-13 Completed [facility] Vaccine 00:00:00 [facility] Influenza Virus 2012-06-13 Completed [facility] Vaccine 00:00:00 [facility] Influenza Virus 2012-06-13 Completed [facility] Vaccine 00:00:00 [facility] Influenza Virus 2012-06-13 Completed [facility] Vaccine 00:00:00 [facility] Influenza Virus 2012-06-13 Completed [facility] Vaccine 00:00:00 [facility] Influenza Virus 2012-06-13 Completed [facility] Vaccine 00:00:00 [facility] Influenza Virus 2012-06-13 Completed [facility] Vaccine 00:00:00 [facility] Influenza Virus 2012-06-13 Completed [facility] Vaccine 00:00:00 [facility] Influenza Virus 2012-06-13 Completed [facility] Vaccine 00:00:00 [facility] Influenza Virus 2012-06-13 Completed [facility] Vaccine 00:00:00 [facility] Influenza Virus 2012-06-13 Completed [facility] Vaccine 00:00:00 [facility] Influenza Virus 2012-06-13 Completed [facility] Vaccine 00:00:00 [facility] Influenza Virus 2012-06-13 Completed [facility] Vaccine 00:00:00 [facility] Influenza Virus 2012-06-13 Completed [facility] Vaccine 00:00:00 [facility] Influenza Virus 2012-06-13 Completed [facility] Vaccine 00:00:00 [facility] Influenza Virus 2011-05-18 Completed [facility] Vaccine 00:00:00 [facility] Influenza Virus 2011-05-18 Completed [facility] Vaccine 00:00:00 [facility] Influenza Virus 2011-05-18 Completed [facility] Vaccine 00:00:00 [facility] Influenza Virus 2011-05-18 Completed [facility] Vaccine 00:00:00 [facility] Influenza Virus 2011-05-18 Completed [facility] Vaccine 00:00:00 [facility] Influenza Virus 2011-05-18 Completed [facility] Vaccine 00:00:00 [facility] Influenza Virus 2011-05-18 Completed [facility] Vaccine 00:00:00 [facility] Influenza Virus 2011-05-18 Completed [facility] Vaccine 00:00:00 [facility] Influenza Virus 2011-05-18 Completed [facility] Vaccine 00:00:00 [facility] Influenza Virus 2011-05-18 Completed [facility] Vaccine 00:00:00 [facility] Influenza Virus 2011-05-18 Completed [facility] Vaccine 00:00:00 [facility] Influenza Virus 2011-05-18 Completed [facility] Vaccine 00:00:00 [facility] Influenza Virus 2011-05-18 Completed [facility] Vaccine 00[facility]00:00 [facility] Influenza Virus 2011-05-18 Completed [facility] Vaccine 00:00:00 [facility] Influenza Virus 2011-05-18 Completed [facility] Vaccine 00:00:00 [facility] Influenza Virus 2011-05-18 Completed [facility] Vaccine 00:00:00 [facility] Influenza Virus 2011-05-18 Completed [facility] Vaccine 00:00:00 [facility] Influenza Virus 2011-05-18 Completed [facility] Vaccine 00:00:00 [facility] Influenza Virus 2011-05-18 Completed [facility] Vaccine 00:00:00 [facility] Influenza Virus 2011-05-18 Completed [facility] Vaccine 00:00:00 [facility] Influenza Virus 2011-05-18 Completed [facility] Vaccine 00:00:00 [facility] Influenza Virus 2011-05-18 Completed [facility] Vaccine 00:00:00 [facility] Influenza Virus 2011-05-18 Completed [facility] Vaccine 00:00:00 [facility] Influenza Virus 2011-05-18 Completed [facility] Vaccine 00:00:00 [facility] Influenza Virus 2011-05-18 Completed [facility] Vaccine 00:00:00 [facility] Influenza Virus 2011-05-18 Completed [facility] Vaccine 00:00:00 [facility] Influenza Virus 2011-05-18 Completed [facility] Vaccine 00:00:00 [facility] Influenza Virus 2011-05-18 Completed [facility] Vaccine 00:00:00 [facility] Influenza Virus 2011-05-18 Completed [facility] Vaccine 00:00:00 [facility] Influenza Virus 2011-05-18 Completed [facility] Vaccine 00:00:00 [facility] Influenza Virus 2011-05-18 Completed [facility] Vaccine 00:00:00 [facility] Influenza Virus 2011-05-18 Completed [facility] Vaccine 00:00:00 [facility] Influenza Virus 2011-05-18 Completed [facility] Vaccine 00:00:00 [facility] Influenza Virus 2011-05-18 Completed [facility] Vaccine 00:00:00 [facility] Influenza Virus 2011-05-18 Completed [facility] Vaccine 00:00:00 [facility] Influenza Virus 2011-05-18 Completed [facility] Vaccine 00:00:00 [facility] Influenza Virus 2011-05-18 Completed [facility] Vaccine 00:00:00 [facility] Influenza Virus 2011-05-18 Completed [facility] Vaccine 00:00:00 [facility] Influenza Virus 2011-05-18 Completed [facility] Vaccine 00:00:00 [facility] Influenza Virus 2011-05-18 Completed [facility] Vaccine 00:00:00 [facility] Influenza Virus 2011-05-18 Completed [facility] Vaccine 00:00:00 [facility] Influenza Virus 2011-05-18 Completed [facility] Vaccine 00:00:00 [facility] Influenza Virus 2011-05-18 Completed [facility] Vaccine 00:00:00 [facility] Influenza Virus 2011-05-18 Completed [facility] Vaccine 00:00:00 [facility] Influenza Virus 2011-05-18 Completed [facility] Vaccine 00:00:00 [facility] Influenza Virus 2011-05-18 Completed [facility] Vaccine 00:00:00 [facility] Influenza Virus 2011-05-18 Completed [facility] Vaccine 00:00:00 [facility] Influenza Virus 2011-05-18 Completed [facility] Vaccine 00:00:00 [facility] Influenza Virus 2011-05-18 Completed [facility] Vaccine 00:00:00 [facility] Influenza Virus 2011-05-18 Completed [facility] Vaccine 00:00:00 [facility] Influenza Virus 2011-05-18 Completed [facility] Vaccine 00:00:00 [facility] Influenza Virus 2011-05-18 Completed [facility] Vaccine 00:00:00 [facility] Influenza Virus 2011-05-18 Completed [facility] Vaccine 00:00:00 [facility] Influenza Virus 2011-05-18 Completed [facility] Vaccine 00:00:00 [facility] Influenza Virus 2011-05-18 Completed [facility] Vaccine 00:00:00 [facility] Influenza Virus 2011-05-18 Completed [facility] Vaccine 00:00:00 [facility] Influenza Virus 2011-05-18 Completed [facility] Vaccine 00:00:00 [facility] Influenza Virus 2011-05-18 Completed [facility] Vaccine 00:00:00 [facility] Influenza Virus 2011-05-18 Completed [facility] Vaccine 00:00:00 [facility] Influenza Virus 2011-05-18 Completed [facility] Vaccine 00:00:00 [facility] Influenza Virus 2011-05-18 Completed [facility] Vaccine 00:00:00 [facility] Influenza Virus 2011-05-18 Completed [facility] Vaccine 00:00:00 [facility] Influenza Virus 2011-05-18 Completed [facility] Vaccine 00:00:00 [facility] Influenza Virus 2011-05-18 Completed [facility] Vaccine 00:00:00 [facility] Influenza Virus 2011-05-18 Completed [facility] Vaccine 00:00:00 [facility] Influenza Virus 2011-05-18 Completed [facility] Vaccine 00:00:00 [facility] Influenza Virus 2011-05-18 Completed [facility]00[facility]00 [facility] Influenza Virus 2011-05-18 Completed [facility] Vaccine 00[facility]00:00 [facility] Influenza Virus 2011-05-18 Completed [facility] Vaccine 00[facility]00:00 [facility] Influenza Virus 2011-05-18 Completed [facility] Vaccine 00:00:00 [facility] Influenza Virus 2011-05-18 Completed [facility] Vaccine 00:00:00 [facility] Influenza Virus 2011-05-18 Completed [facility] Vaccine 00:00:00 [facility] Influenza Virus 2011-05-18 Completed [facility] Vaccine 00:00:00 [facility] Influenza Virus 2011-05-18 Completed [facility] Vaccine 00:00:00 [facility] Influenza Virus 2011-05-18 Completed [facility] Vaccine 00:00:00 [facility] Influenza Virus 2011-05-18 Completed [facility] Vaccine 00:00:00 [facility] Influenza Virus 2011-05-18 Completed [facility] Vaccine 00:00:00 [facility] Influenza Virus 2011-05-18 Completed [facility] Vaccine 00:00:00 [facility] Influenza Virus 2011-05-18 Completed [facility] Vaccine 00:00:00 [facility] Influenza Virus 2011-05-18 Completed [facility] Vaccine 00:00:00 [facility] Influenza Virus 2011-05-18 Completed [facility] Vaccine 00:00:00 [facility] Influenza Virus 2011-05-18 Completed [facility] Vaccine 00:00:00 [facility] Influenza Virus 2011-05-18 Completed [facility] Vaccine 00:00:00 [facility] Influenza Virus 2011-05-18 Completed [facility] Vaccine 00:00:00 [facility] Influenza Virus 2011-05-18 Completed [facility] Vaccine 00:00:00 [facility] Influenza Virus 2011-05-18 Completed [facility] Vaccine 00:00:00 [facility] Influenza Virus 2011-05-18 Completed [facility] Vaccine 00:00:00 [facility] Influenza Virus 2011-05-18 Completed [facility] Vaccine 00:00:00 [facility] Influenza Virus 2011-05-18 Completed [facility] Vaccine 00:00:00 [facility] Influenza Virus 2011-05-18 Completed [facility] Vaccine 00:00:00 [facility] Influenza Virus 2011-05-18 Completed [facility] Vaccine 00:00:00 [facility] Influenza Virus 2011-05-18 Completed [facility] Vaccine 00:00:00 [facility] Influenza Virus 2011-05-18 Completed [facility] Vaccine 00:00:00 [facility] Influenza Virus 2011-05-18 Completed [facility] Vaccine 00:00:00 [facility] Influenza Virus 2011-05-18 Completed [facility] Vaccine 00:00:00 [facility] Influenza Virus 2011-05-18 Completed [facility] Vaccine 00:00:00 [facility] Influenza Virus 2011-05-18 Completed [facility] Vaccine 00:00:00 [facility] Influenza Virus 2011-05-18 Completed [facility] Vaccine 00:00:00 [facility] Influenza Virus 2011-05-18 Completed [facility] Vaccine 00:00:00 [facility] Influenza Virus 2011-05-18 Completed [facility] Vaccine 00:00:00 [facility] Influenza Virus 2011-05-18 Completed [facility] Vaccine 00:00:00 [facility] Influenza Virus 2011-05-18 Completed [facility] Vaccine 00:00:00 [facility] Influenza Virus 2011-05-18 Completed [facility] Vaccine 00:00:00 [facility] Influenza Virus 2011-05-18 Completed [facility] Vaccine 00:00:00 [facility] Influenza Virus 2011-05-18 Completed [facility] Vaccine 00:00:00 [facility] Influenza Virus 2010-05-26 Completed [facility] Vaccine 00:00:00 [facility] Influenza Virus 2010-05-26 Completed [facility] Vaccine 00:00:00 [facility] Influenza Virus 2010-05-26 Completed [facility] Vaccine 00:00:00 [facility] Influenza Virus 2010-05-26 Completed [facility] Vaccine 00:00:00 [facility] Influenza Virus 2010-05-26 Completed [facility] Vaccine 00:00:00 [facility] Influenza Virus 2010-05-26 Completed [facility] Vaccine 00:00:00 [facility] Influenza Virus 2010-05-26 Completed [facility] Vaccine 00:00:00 [facility] Influenza Virus 2010-05-26 Completed [facility] Vaccine 00:00:00 [facility] Influenza Virus 2010-05-26 Completed [facility] Vaccine 00:00:00 [facility] Influenza Virus 2010-05-26 Completed [facility] Vaccine 00:00:00 [facility] Influenza Virus 2010-05-26 Completed [facility] Vaccine 00:00:00 [facility] Influenza Virus 2010-05-26 Completed [facility] Vaccine 00:00:00 [facility] Influenza Virus 2010-05-26 Completed [facility] Vaccine 00:00:00 [facility] Influenza Virus 2010-05-26 Completed [facility] Vaccine 00:00:00 [facility] Influenza Virus 2010-05-26 Completed [facility] Vaccine 00:00:00 [facility] Influenza Virus 2010-05-26 Completed [facility] Vaccine 00:00:00 [facility] Influenza Virus 2010-05-26 Completed [facility] Vaccine 00:00:00 [facility] Influenza Virus 2010-05-26 Completed [facility] Vaccine 00:00:00 [facility] Influenza Virus 2010-05-26 Completed [facility] Vaccine 00:00:00 [facility] Influenza Virus 2010-05-26 Completed [facility] Vaccine 00:00:00 [facility] Influenza Virus 2010-05-26 Completed [facility] Vaccine 00:00:00 [facility] Influenza Virus 2010-05-26 Completed [facility] Vaccine 00:00:00 [facility] Influenza Virus 2010-05-26 Completed [facility] Vaccine 00:00:00 [facility] Influenza Virus 2010-05-26 Completed [facility] Vaccine 00:00:00 [facility] Influenza Virus 2010-05-26 Completed [facility] Vaccine 00:00:00 [facility] Influenza Virus 2010-05-26 Completed [facility] Vaccine 00:00:00 [facility] Influenza Virus 2010-05-26 Completed [facility] Vaccine 00:00:00 [facility] Influenza Virus 2010-05-26 Completed [facility] Vaccine 00:00:00 [facility] Influenza Virus 2010-05-26 Completed [facility] Vaccine 00:00:00 [facility] Influenza Virus 2010-05-26 Completed [facility] Vaccine 00:00:00 [facility] Influenza Virus 2010-05-26 Completed [facility] Vaccine 00:00:00 [facility] Influenza Virus 2010-05-26 Completed [facility] Vaccine 00:00:00 [facility] Influenza Virus 2010-05-26 Completed [facility] Vaccine 00:00:00 [facility] Influenza Virus 2010-05-26 Completed [facility] Vaccine 00:00:00 [facility] Influenza Virus 2010-05-26 Completed [facility] Vaccine 00:00:00 [facility] Influenza Virus 2010-05-26 Completed [facility] Vaccine 00:00:00 [facility] Influenza Virus 2010-05-26 Completed [facility] Vaccine 00:00:00 [facility] Influenza Virus 2010-05-26 Completed [facility] Vaccine 00:00:00 [facility] Influenza Virus 2010-05-26 Completed [facility] Vaccine 00:00:00 [facility] Influenza Virus 2010-05-26 Completed [facility] Vaccine 00:00:00 [facility] Influenza Virus 2010-05-26 Completed [facility] Vaccine 00:00:00 [facility] Influenza Virus 2010-05-26 Completed [facility] Vaccine 00:00:00 [facility] Influenza Virus 2010-05-26 Completed [facility] Vaccine 00:00:00 [facility] Influenza Virus 2010-05-26 Completed [facility] Vaccine 00:00:00 [facility] Influenza Virus 2010-05-26 Completed [facility] Vaccine 00:00:00 [facility] Influenza Virus 2010-05-26 Completed [facility] Vaccine 00:00:00 [facility] Influenza Virus 2010-05-26 Completed [facility] Vaccine 00:00:00 [facility] Influenza Virus 2010-05-26 Completed [facility] Vaccine 00:00:00 [facility] Influenza Virus 2010-05-26 Completed [facility] Vaccine 00:00:00 [facility] Influenza Virus 2010-05-26 Completed [facility] Vaccine 00:00:00 [facility] Influenza Virus 2010-05-26 Completed [facility] Vaccine 00:00:00 [facility] Influenza Virus 2010-05-26 Completed [facility] Vaccine 00:00:00 [facility] Influenza Virus 2010-05-26 Completed [facility] Vaccine 00:00:00 [facility] Influenza Virus 2010-05-26 Completed [facility] Vaccine 00:00:00 [facility] Influenza Virus 2010-05-26 Completed [facility] Vaccine 00:00:00 [facility] Influenza Virus 2010-05-26 Completed [facility] Vaccine 00:00:00 [facility] Influenza Virus 2010-05-26 Completed [facility] Vaccine 00:00:00 [facility] Influenza Virus 2010-05-26 Completed [facility] Vaccine 00:00:00 [facility] Influenza Virus 2010-05-26 Completed [facility] Vaccine 00:00:00 [facility] Influenza Virus 2010-05-26 Completed [facility] Vaccine 00:00:00 [facility] Influenza Virus 2010-05-26 Completed [facility] Vaccine 00:00:00 [facility] Influenza Virus 2010-05-26 Completed [facility] Vaccine 00:00:00 [facility] Influenza Virus 2010-05-26 Completed [facility] Vaccine 00:00:00 [facility] Influenza Virus 2010-05-26 Completed [facility] Vaccine 00:00:00 [facility] Influenza Virus 2010-05-26 Completed [facility] Vaccine 00:00:00 [facility] Influenza Virus 2010-05-26 Completed [facility] Vaccine 00:00:00 [facility] Influenza Virus 2010-05-26 Completed [facility] Vaccine 00:00:00 [facility] Influenza Virus 2010-05-26 Completed [facility] Vaccine 00:00:00 [facility] Influenza Virus 2010-05-26 Completed [facility] Vaccine 00:00:00 [facility] Influenza Virus 2010-05-26 Completed [facility] Vaccine 00:00:00 [facility] Influenza Virus 2010-05-26 Completed [facility] Vaccine 00:00:00 [facility] Influenza Virus 2010-05-26 Completed [facility] Vaccine 00:00:00 [facility] Influenza Virus 2010-05-26 Completed [facility] Vaccine 00:00:00 [facility] Influenza Virus 2010-05-26 Completed [facility] Vaccine 00:00:00 [facility] Influenza Virus 2010-05-26 Completed [facility] Vaccine 00:00:00 [facility] Influenza Virus 2010-05-26 Completed [facility] Vaccine 00:00:00 [facility] Influenza Virus 2010-05-26 Completed [facility] Vaccine 00:00:00 [facility] Influenza Virus 2010-05-26 Completed [facility] Vaccine 00:00:00 [facility] Influenza Virus 2010-05-26 Completed [facility] Vaccine 00:00:00 [facility] Influenza Virus 2010-05-26 Completed [facility] Vaccine 00:00:00 [facility] Influenza Virus 2010-05-26 Completed [facility] Vaccine 00:00:00 [facility] Influenza Virus 2010-05-26 Completed [facility] Vaccine 00:00:00 [facility] Influenza Virus 2010-05-26 Completed [facility] Vaccine 00:00:00 [facility] Influenza Virus 2010-05-26 Completed [facility] Vaccine 00:00:00 [facility] Influenza Virus 2010-05-26 Completed [facility] Vaccine 00:00:00 [facility] Influenza Virus 2010-05-26 Completed [facility] Vaccine 00:00:00 [facility] Influenza Virus 2010-05-26 Completed [facility] Vaccine 00:00:00 [facility] Influenza Virus 2010-05-26 Completed [facility] Vaccine 00:00:00 [facility] Influenza Virus 2010-05-26 Completed [facility] Vaccine 00:00:00 [facility] Influenza Virus 2010-05-26 Completed [facility] Vaccine 00:00:00 [facility] Influenza Virus 2010-05-26 Completed [facility] Vaccine 00:00:00 [facility] Influenza Virus 2010-05-26 Completed [facility] Vaccine 00:00:00 [facility] Influenza Virus 2010-05-26 Completed [facility] Vaccine 00:00:00 [facility] Influenza Virus 2010-05-26 Completed [facility] Vaccine 00:00:00 [facility] Influenza Virus 2010-05-26 Completed [facility] Vaccine 00:00:00 [facility] Influenza Virus 2010-05-26 Completed [facility] Vaccine 00:00:00 [facility] Influenza Virus 2010-05-26 Completed [facility] Vaccine 00:00:00 [facility] Influenza Virus 2010-05-26 Completed [facility] Vaccine 00:00:00 [facility] Influenza Virus 2010-05-26 Completed [facility] Vaccine 00:00:00 [facility] Influenza Virus 2010-05-26 Completed [facility] Vaccine 00:00:00 [facility] Influenza Virus 2010-05-26 Completed [facility] Vaccine 00:00:00 [facility] Influenza Virus 2010-05-26 Completed [facility] Vaccine 00:00:00 [facility] Influenza Virus 2010-05-26 Completed [facility] Vaccine 00:00:00 [facility] Influenza Virus 2010-05-26 Completed [facility] Vaccine 00:00:00 [facility] Influenza Virus 2010-05-26 Completed [facility] Vaccine 00:00:00 [facility] Influenza Virus 2009-06-23 Completed [facility] Vaccine 00:00:00 [facility] Influenza Virus 2009-06-23 Completed [facility] Vaccine 00:00:00 [facility] Influenza Virus 2009-06-23 Completed [facility] Vaccine 00:00:00 [facility] Influenza Virus 2009-06-23 Completed [facility] Vaccine 00:00:00 [facility] Influenza Virus 2009-06-23 Completed [facility] Vaccine 00:00:00 [facility] Influenza Virus 2009-06-23 Completed [facility] Vaccine 00:00:00 [facility] Influenza Virus 2009-06-23 Completed [facility] Vaccine 00:00:00 [facility] Influenza Virus 2009-06-23 Completed [facility] Vaccine 00:00:00 [facility] Influenza Virus 2009-06-23 Completed [facility] Vaccine 00:00:00 [facility] Influenza Virus 2009-06-23 Completed [facility] Vaccine 00:00:00 [facility] Influenza Virus 2009-06-23 Completed [facility] Vaccine 00:00:00 [facility] Influenza Virus 2009-06-23 Completed [facility] Vaccine 00:00:00 [facility] Influenza Virus 2009-06-23 Completed [facility] Vaccine 00:00:00 [facility] Influenza Virus 2009-06-23 Completed [facility] Vaccine 00:00:00 [facility] Influenza Virus 2009-06-23 Completed [facility] Vaccine 00:00:00 [facility] Influenza Virus 2009-06-23 Completed [facility] Vaccine 00:00:00 [facility] Influenza Virus 2009-06-23 Completed [facility] Vaccine 00:00:00 [facility] Influenza Virus 2009-06-23 Completed [facility] Vaccine 00:00:00 [facility] Influenza Virus 2009-06-23 Completed [facility] Vaccine 00:00:00 [facility] Influenza Virus 2009-06-23 Completed [facility] Vaccine 00:00:00 [facility] Influenza Virus 2009-06-23 Completed [facility] Vaccine 00:00:00 [facility] Influenza Virus 2009-06-23 Completed [facility] Vaccine 00:00:00 [facility] Influenza Virus 2009-06-23 Completed [facility] Vaccine 00:00:00 [facility] Influenza Virus 2009-06-23 Completed [facility] Vaccine 00:00:00 [facility] Influenza Virus 2009-06-23 Completed [facility] Vaccine 00:00:00 [facility] Influenza Virus 2009-06-23 Completed [facility] Vaccine 00:00:00 [facility] Influenza Virus 2009-06-23 Completed [facility] Vaccine 00:00:00 [facility] Influenza Virus 2009-06-23 Completed [facility] Vaccine 00:00:00 [facility] Influenza Virus 2009-06-23 Completed [facility] Vaccine 00:00:00 [facility] Influenza Virus 2009-06-23 Completed [facility] Vaccine 00:00:00 [facility] Influenza Virus 2009-06-23 Completed [facility] Vaccine 00:00:00 [facility] Influenza Virus 2009-06-23 Completed [facility] Vaccine 00:00:00 [facility] Influenza Virus 2009-06-23 Completed [facility] Vaccine 00:00:00 [facility] Influenza Virus 2009-06-23 Completed [facility] Vaccine 00:00:00 [facility] Influenza Virus 2009-06-23 Completed [facility] Vaccine 00:00:00 [facility] Influenza Virus 2009-06-23 Completed [facility] Vaccine 00:00:00 [facility] Influenza Virus 2009-06-23 Completed [facility] Vaccine 00:00:00 [facility] Influenza Virus 2009-06-23 Completed [facility] Vaccine 00:00:00 [facility] Influenza Virus 2009-06-23 Completed [facility] Vaccine 00:00:00 [facility] Influenza Virus 2009-06-23 Completed [facility] Vaccine 00:00:00 [facility] Influenza Virus 2009-06-23 Completed [facility] Vaccine 00:00:00 [facility] Influenza Virus 2009-06-23 Completed [facility] Vaccine 00:00:00 [facility] Influenza Virus 2009-06-23 Completed [facility] Vaccine 00:00:00 [facility] Influenza Virus 2009-06-23 Completed [facility] Vaccine 00:00:00 [facility] Influenza Virus 2009-06-23 Completed [facility] Vaccine 00:00:00 [facility] Influenza Virus 2009-06-23 Completed [facility] Vaccine 00:00:00 [facility] Influenza Virus 2009-06-23 Completed [facility] Vaccine 00:00:00 [facility] Influenza Virus 2009-06-23 Completed [facility] Vaccine 00:00:00 [facility] Influenza Virus 2009-06-23 Completed [facility] Vaccine 00:00:00 [facility] Influenza Virus 2009-06-23 Completed [facility] Vaccine 00:00:00 [facility] Influenza Virus 2009-06-23 Completed [facility] Vaccine 00:00:00 [facility] Influenza Virus 2009-06-23 Completed [facility] Vaccine 00:00:00 [facility] Influenza Virus 2009-06-23 Completed [facility] Vaccine 00:00:00 [facility] Influenza Virus 2009-06-23 Completed [facility] Vaccine 00:00:00 [facility] Influenza Virus 2009-06-23 Completed [facility] Vaccine 00:00:00 [facility] Influenza Virus 2009-06-23 Completed [facility] Vaccine 00[facility]00:00 [facility] Influenza Virus 2009-06-23 Completed [facility] Vaccine 00:00:00 [facility] Influenza Virus 2009-06-23 Completed [facility] Vaccine 00[facility]00:00 [facility] Influenza Virus 2009-06-23 Completed [facility] Vaccine 00:00:00 [facility] Influenza Virus 2009-06-23 Completed [facility] Vaccine 00:00:00 [facility] [facility] Influenza Virus 2009-06-23 Completed [facility] 00[facility]00:00 [facility] Influenza Virus 2009-06-23 Completed [facility] Vaccine 00[facility]00:00 [facility] Influenza Virus 2009-06-23 Completed [facility] Vaccine 00:00:00 [facility] Influenza Virus 2009-06-23 Completed [facility] Vaccine 00:00:00 [facility] Influenza Virus 2009-06-23 Completed [facility] Vaccine 00:00:00 [facility] Influenza Virus 2009-06-23 Completed [facility] Vaccine 00:00:00 [facility] Influenza Virus 2009-06-23 Completed [facility] Vaccine 00[facility]00:00 [facility] Influenza Virus 2009-06-23 Completed [facility] Vaccine 00:00:00 [facility] Influenza Virus 2009-06-23 Completed [facility] Vaccine 00:00:00 [facility] Influenza Virus 2009-06-23 Completed [facility] Vaccine 00:00:00 [facility] Influenza Virus 2009-06-23 Completed [facility] Vaccine 00:00:00 [facility] Influenza Virus 2009-06-23 Completed [facility] Vaccine 00:00:00 [facility] Influenza Virus 2009-06-23 Completed [facility] Vaccine 00:00:00 [facility] Influenza Virus 2009-06-23 Completed [facility] Vaccine 00:00:00 [facility] Influenza Virus 2009-06-23 Completed [facility] Vaccine 00[facility]00:00 [facility] Influenza Virus 2009-06-23 Completed [facility] Vaccine 00:00:00 [facility] Influenza Virus 2009-06-23 Completed [facility] Vaccine 00:00:00 [facility] Influenza Virus 2009-06-23 Completed [facility] Vaccine 00:00:00 [facility] Influenza Virus 2009-06-23 Completed [facility] Vaccine 00:00:00 [facility] Influenza Virus 2009-06-23 Completed [facility] Vaccine 00:00:00 [facility] Influenza Virus 2009-06-23 Completed [facility] Vaccine 00:00:00 [facility] Influenza Virus 2009-06-23 Completed [facility] Vaccine 00:00:00 [facility] Influenza Virus 2009-06-23 Completed [facility] Vaccine 00:00:00 [facility] Influenza Virus 2009-06-23 Completed [facility] Vaccine 00:00:00 [facility] Influenza Virus 2009-06-23 Completed [facility] Vaccine 00:00:00 [facility] Influenza Virus 2009-06-23 Completed [facility] Vaccine 00:00:00 [facility] Influenza Virus 2009-06-23 Completed [facility] Vaccine 00:00:00 [facility] Influenza Virus 2009-06-23 Completed [facility] Vaccine 00:00:00 [facility] Influenza Virus 2009-06-23 Completed [facility] Vaccine 00:00:00 [facility] Influenza Virus 2009-06-23 Completed [facility] Vaccine 00:00:00 [facility] Influenza Virus 2009-06-23 Completed [facility] Vaccine 00:00:00 [facility] Influenza Virus 2009-06-23 Completed [facility] Vaccine 00:00:00 [facility] Influenza Virus 2009-06-23 Completed [facility] Vaccine 00:00:00 [facility] Influenza Virus 2009-06-23 Completed [facility] Vaccine 00:00:00 [facility] Influenza Virus 2009-06-23 Completed [facility] Vaccine 00:00:00 [facility] Influenza Virus 2009-06-23 Completed [facility] Vaccine 00:00:00 [facility] Influenza Virus 2009-06-23 Completed [facility] Vaccine 00:00:00 [facility] Influenza Virus 2009-06-23 Completed [facility] Vaccine 00:00:00 [facility] Influenza Virus 2009-06-23 Completed [facility] Vaccine 00:00:00 [facility] Influenza Virus 2009-06-23 Completed [facility] Vaccine 00:00:00 [facility] Influenza Virus 2009-06-23 Completed [facility]ine 00:00:00 [facility] Influenza Virus 2009-06-23 Completed [facility] Vaccine 00:00:00 [facility] Influenza Virus 2009-06-23 Completed [facility] Vaccine 00:00:00 [facility] Influenza Virus 2009-06-23 Completed [facility] Vaccine 00:00:00 [facility] Influenza Virus 2009-06-23 Completed [facility] Vaccine 00:00:00 [facility] Influenza Virus 2009-05-20 Completed [facility] Vaccine 00:00:00 [facility] Influenza Virus 2009-05-20 Completed [facility] Vaccine 00:00:00 [facility] Influenza Virus 2009-05-20 Completed [facility] Vaccine 00:00:00 [facility] Influenza Virus 2009-05-20 Completed [facility] Vaccine 00:00:00 [facility] Influenza Virus 2009-05-20 Completed [facility] Vaccine 00:00:00 [facility] Influenza Virus 2009-05-20 Completed [facility] Vaccine 00:00:00 [facility] Influenza Virus 2009-05-20 Completed [facility] Vaccine 00:00:00 [facility] Influenza Virus 2009-05-20 Completed [facility] Vaccine 00:00:00 [facility] Influenza Virus 2009-05-20 Completed [facility] Vaccine 00:00:00 [facility] Influenza Virus 2009-05-20 Completed [facility] Vaccine 00:00:00 [facility] Influenza Virus 2009-05-20 Completed [facility] Vaccine 00:00:00 [facility] Influenza Virus 2009-05-20 Completed [facility] Vaccine 00:00:00 [facility] Influenza Virus 2009-05-20 Completed [facility] Vaccine 00:00:00 [facility] Influenza Virus 2009-05-20 Completed [facility] Vaccine 00:00:00 [facility] Influenza Virus 2009-05-20 Completed [facility] Vaccine 00:00:00 [facility] Influenza Virus 2009-05-20 Completed [facility] Vaccine 00:00:00 [facility] Influenza Virus 2009-05-20 Completed [facility] Vaccine 00:00:00 [facility] Influenza Virus 2009-05-20 Completed [facility] Vaccine 00:00:00 [facility] Influenza Virus 2009-05-20 Completed [facility] Vaccine 00:00:00 [facility] Influenza Virus 2009-05-20 Completed [facility] Vaccine 00:00:00 [facility] Influenza Virus 2009-05-20 Completed [facility] Vaccine 00:00:00 [facility] Influenza Virus 2009-05-20 Completed [facility] Vaccine 00:00:00 [facility] Influenza Virus 2009-05-20 Completed [facility] Vaccine 00:00:00 [facility] Influenza Virus 2009-05-20 Completed [facility] Vaccine 00:00:00 [facility] Influenza Virus 2009-05-20 Completed [facility] Vaccine 00:00:00 [facility] Influenza Virus 2009-05-20 Completed [facility] Vaccine 00:00:00 [facility] Influenza Virus 2009-05-20 Completed [facility] Vaccine 00:00:00 [facility] Influenza Virus 2009-05-20 Completed [facility] Vaccine 00:00:00 [facility] Influenza Virus 2009-05-20 Completed [facility] Vaccine 00:00:00 [facility] Influenza Virus 2009-05-20 Completed [facility] Vaccine 00:00:00 [facility] Influenza Virus 2009-05-20 Completed [facility] Vaccine 00:00:00 [facility] Influenza Virus 2009-05-20 Completed [facility] Vaccine 00:00:00 [facility] Influenza Virus 2009-05-20 Completed [facility] Vaccine 00:00:00 [facility] Influenza Virus 2009-05-20 Completed [facility] Vaccine 00:00:00 [facility] Influenza Virus 2009-05-20 Completed [facility] Vaccine 00:00:00 [facility] Influenza Virus 2009-05-20 Completed [facility] Vaccine 00:00:00 [facility] Influenza Virus 2009-05-20 Completed [facility] Vaccine 00:00:00 [facility] Influenza Virus 2009-05-20 Completed [facility] Vaccine 00:00:00 [facility] Influenza Virus 2009-05-20 Completed [facility] Vaccine 00:00:00 [facility] Influenza Virus 2009-05-20 Completed [facility] Vaccine 00:00:00 [facility] Influenza Virus 2009-05-20 Completed [facility] Vaccine 00:00:00 [facility] Influenza Virus 2009-05-20 Completed [facility] Vaccine 00:00:00 [facility] Influenza Virus 2009-05-20 Completed [facility] Vaccine 00:00:00 [facility] Influenza Virus 2009-05-20 Completed [facility] Vaccine 00:00:00 [facility] Influenza Virus 2009-05-20 Completed [facility] Vaccine 00:00:00 [facility] Influenza Virus 2009-05-20 Completed [facility] Vaccine 00[facility]00:00 [facility] Influenza Virus 2009-05-20 Completed [facility] Vaccine 00:00:00 [facility] Influenza Virus 2009-05-20 Completed [facility] Vaccine 00:00:00 [facility] Influenza Virus 2009-05-20 Completed [facility] Vaccine 00:00:00 [facility] Influenza Virus 2009-05-20 Completed [facility] Vaccine 00:00:00 [facility] Influenza Virus 2009-05-20 Completed [facility] Vaccine 00:00:00 [facility] Influenza Virus 2009-05-20 Completed [facility] Vaccine 00:00:00 [facility] Influenza Virus 2009-05-20 Completed [facility] Vaccine 00:00:00 [facility] Influenza Virus 2009-05-20 Completed [facility] Vaccine 00:00:00 [facility] Influenza Virus 2009-05-20 Completed [facility] Vaccine 00:00:00 [facility] Influenza Virus 2009-05-20 Completed [facility] Vaccine 00:00:00 [facility] Influenza Virus 2009-05-20 Completed [facility] Vaccine 00:00:00 [facility] Influenza Virus 2009-05-20 Completed [facility] Vaccine 00:00:00 [facility] Influenza Virus 2009-05-20 Completed [facility] Vaccine 00:00:00 [facility] Influenza Virus 2009-05-20 Completed [facility] Vaccine 00:00:00 [facility] Influenza Virus 2009-05-20 Completed [facility] Vaccine 00:00:00 [facility] Influenza Virus 2009-05-20 Completed [facility] Vaccine 00:00:00 [facility] Influenza Virus 2009-05-20 Completed [facility] Vaccine 00:00:00 [facility] Influenza Virus 2009-05-20 Completed [facility] Vaccine 00:00:00 [facility] Influenza Virus 2009-05-20 Completed [facility] Vaccine 00:00:00 [facility] Influenza Virus 2009-05-20 Completed [facility] Vaccine 00:00:00 [facility] Influenza Virus 2009-05-20 Completed [facility] Vaccine 00:00:00 [facility] Influenza Virus 2009-05-20 Completed [facility] Vaccine 00:00:00 [facility] Influenza Virus 2009-05-20 Completed [facility] Vaccine 00:00:00 [facility] Influenza Virus 2009-05-20 Completed [facility] Vaccine 00:00:00 [facility] Influenza Virus 2009-05-20 Completed [facility] Vaccine 00:00:00 [facility] Influenza Virus 2009-05-20 Completed [facility] Vaccine 00:00:00 [facility] Influenza Virus 2009-05-20 Completed [facility] Vaccine 00:00:00 [facility] Influenza Virus 2009-05-20 Completed [facility] Vaccine 00:00:00 [facility] Influenza Virus 2009-05-20 Completed [facility] Vaccine 00:00:00 [facility] Influenza Virus 2009-05-20 Completed [facility] Vaccine 00:00:00 [facility] Influenza Virus 2009-05-20 Completed [facility] Vaccine 00:00:00 [facility] Influenza Virus 2009-05-20 Completed [facility] Vaccine 00:00:00 [facility] Influenza Virus 2009-05-20 Completed [facility] Vaccine 00:00:00 [facility] Influenza Virus 2009-05-20 Completed [facility] Vaccine 00:00:00 [facility] Influenza Virus 2009-05-20 Completed [facility] Vaccine 00:00:00 [facility] Influenza Virus 2009-05-20 Completed [facility] Vaccine 00:00:00 [facility] Influenza Virus 2009-05-20 Completed [facility] Vaccine 00:00:00 [facility] Influenza Virus 2009-05-20 Completed [facility] Vaccine 00:00:00 [facility] Influenza Virus 2009-05-20 Completed [facility] Vaccine 00[facility]00:00 [facility] Influenza Virus 2009-05-20 Completed [facility] Vaccine 00:00:00 [facility] Influenza Virus 2009-05-20 Completed [facility] Vaccine 00:00:00 [facility] Influenza Virus 2009-05-20 Completed [facility] Vaccine 00:00:00 [facility] Influenza Virus 2009-05-20 Completed [facility] Vaccine 00:00:00 [facility] Influenza Virus 2009-05-20 Completed [facility] Vaccine 00:00:00 [facility] Influenza Virus 2009-05-20 Completed [facility] Vaccine 00[facility]00:00 [facility] Influenza Virus 2009-05-20 Completed [facility] Vaccine 00:00:00 [facility] Influenza Virus 2009-05-20 Completed [facility] Vaccine 00:00:00 [facility] Influenza Virus 2009-05-20 Completed [facility] Vaccine 00:00:00 [facility] Influenza Virus 2009-05-20 Completed [facility] Vaccine 00:00:00 [facility] Influenza Virus 2009-05-20 Completed [facility] Vaccine 00:00:00 [facility] Influenza Virus 2009-05-20 Completed [facility] Vaccine 00:00:00 [facility] Influenza Virus 2009-05-20 Completed [facility] Vaccine 00:00:00 [facility] Influenza Virus 2009-05-20 Completed [facility] Vaccine 00:00:00 [facility] Influenza Virus 2009-05-20 Completed [facility] Vaccine 00:00:00 [facility] Influenza Virus 2009-05-20 Completed [facility] Vaccine 00:00:00 [facility] Influenza Virus 2009-05-20 Completed [facility] Vaccine 00:00:00 [facility] Influenza Virus 2009-05-20 Completed [facility] Vaccine 00:00:00 [facility] Influenza Virus 2009-05-20 Completed [facility] Vaccine 00:00:00 [facility] Influenza Virus 2009-05-20 Completed [facility] Vaccine 00:00:00 [facility] Influenza Virus 2007-06-01 Completed [facility] Vaccine 00:00:00 [facility] Influenza Virus 2007-06-01 Completed [facility] Vaccine 00:00:00 [facility] Influenza Virus 2007-06-01 Completed [facility] Vaccine 00:00:00 [facility] Influenza Virus 2007-06-01 Completed [facility] Vaccine 00:00:00 [facility] Influenza Virus 2007-06-01 Completed [facility] Vaccine 00:00:00 [facility] Influenza Virus 2007-06-01 Completed [facility] Vaccine 00:00:00 [facility] Influenza Virus 2007-06-01 Completed [facility] Vaccine 00:00:00 [facility] Influenza Virus 2007-06-01 Completed [facility] Vaccine 00:00:00 [facility] Influenza Virus 2007-06-01 Completed [facility] Vaccine 00:00:00 [facility] Influenza Virus 2007-06-01 Completed [facility] Vaccine 00:00:00 [facility] Influenza Virus 2007-06-01 Completed [facility] Vaccine 00:00:00 [facility] Influenza Virus 2007-06-01 Completed [facility] Vaccine 00:00:00 [facility] Influenza Virus 2007-06-01 Completed [facility] Vaccine 00:00:00 [facility] Influenza Virus 2007-06-01 Completed [facility] Vaccine 00:00:00 [facility] Influenza Virus 2007-06-01 Completed [facility] Vaccine 00:00:00 [facility] Influenza Virus 2007-06-01 Completed [facility] Vaccine 00:00:00 [facility] Influenza Virus 2007-06-01 Completed [facility] Vaccine 00:00:00 [facility] Influenza Virus 2007-06-01 Completed [facility] Vaccine 00:00:00 [facility] Influenza Virus 2007-06-01 Completed [facility] Vaccine 00:00:00 [facility] Influenza Virus 2007-06-01 Completed [facility] Vaccine 00:00:00 [facility] Influenza Virus 2007-06-01 Completed [facility] Vaccine 00:00:00 [facility] Influenza Virus 2007-06-01 Completed [facility] Vaccine 00:00:00 [facility] Influenza Virus 2007-06-01 Completed [facility] Vaccine 00:00:00 [facility] Influenza Virus 2007-06-01 Completed [facility] Vaccine 00:00:00 [facility] Influenza Virus 2007-06-01 Completed [facility] Vaccine 00:00:00 [facility] Influenza Virus 2007-06-01 Completed [facility] Vaccine 00:00:00 [facility] Influenza Virus 2007-06-01 Completed [facility] Vaccine 00:00:00 [facility] Influenza Virus 2007-06-01 Completed [facility] Vaccine 00:00:00 [facility] Influenza Virus 2007-06-01 Completed [facility] Vaccine 00:00:00 [facility] Influenza Virus 2007-06-01 Completed [facility] Vaccine 00:00:00 [facility] Influenza Virus 2007-06-01 Completed [facility] Vaccine 00:00:00 [facility] Influenza Virus 2007-06-01 Completed [facility] Vaccine 00:00:00 [facility] Influenza Virus 2007-06-01 Completed [facility] Vaccine 00:00:00 [facility] Influenza Virus 2007-06-01 Completed [facility] Vaccine 00:00:00 [facility] Influenza Virus 2007-06-01 Completed [facility] Vaccine 00:00:00 [facility] Influenza Virus 2007-06-01 Completed [facility] Vaccine 00:00:00 [facility] Influenza Virus 2007-06-01 Completed [facility] Vaccine 00:00:00 [facility] Influenza Virus 2007-06-01 Completed [facility] Vaccine 00:00:00 [facility] Influenza Virus 2007-06-01 Completed [facility] Vaccine 00:00:00 [facility] Influenza Virus 2007-06-01 Completed [facility] Vaccine 00:00:00 [facility] Influenza Virus 2007-06-01 Completed [facility] Vaccine 00:00:00 [facility] Influenza Virus 2007-06-01 Completed [facility] Vaccine 00:00:00 [facility] Influenza Virus 2007-06-01 Completed [facility] Vaccine 00:00:00 [facility] Influenza Virus 2007-06-01 Completed [facility] Vaccine 00:00:00 [facility] Influenza Virus 2007-06-01 Completed [facility] Vaccine 00:00:00 [facility] Influenza Virus 2007-06-01 Completed [facility] Vaccine 00:00:00 [facility] Influenza Virus 2007-06-01 Completed [facility] Vaccine 00:00:00 [facility] Influenza Virus 2007-06-01 Completed [facility] Vaccine 00:00:00 [facility] Influenza Virus 2007-06-01 Completed [facility] Vaccine 00:00:00 [facility] Influenza Virus 2007-06-01 Completed [facility] Vaccine 00:00:00 [facility] Influenza Virus 2007-06-01 Completed [facility] Vaccine 00:00:00 [facility] Influenza Virus 2007-06-01 Completed [facility] Vaccine 00:00:00 [facility] Influenza Virus 2007-06-01 Completed [facility] Vaccine 00:00:00 [facility] Influenza Virus 2007-06-01 Completed [facility] Vaccine 00:00:00 [facility] Influenza Virus 2007-06-01 Completed [facility] Vaccine 00:00:00 [facility] Influenza Virus 2007-06-01 Completed [facility] Vaccine 00:00:00 [facility] Influenza Virus 2007-06-01 Completed [facility] Vaccine 00:00:00 [facility] Influenza Virus 2007-06-01 Completed [facility] Vaccine 00:00:00 [facility] Influenza Virus 2007-06-01 Completed [facility] Vaccine 00:00:00 [facility] Influenza Virus 2007-06-01 Completed [facility] Vaccine 00:00:00 [facility] Influenza Virus 2007-06-01 Completed [facility] Vaccine 00:00:00 [facility] Influenza Virus 2007-06-01 Completed [facility] Vaccine 00:00:00 [facility] Influenza Virus 2007-06-01 Completed [facility] Vaccine 00:00:00 [facility] Influenza Virus 2007-06-01 Completed [facility] Vaccine 00:00:00 [facility] Influenza Virus 2007-06-01 Completed [facility] Vaccine 00:00:00 [facility] Influenza Virus 2007-06-01 Completed [facility] Vaccine 00:00:00 [facility] Influenza Virus 2007-06-01 Completed [facility] Vaccine 00:00:00 [facility] Influenza Virus 2007-06-01 Completed [facility] Vaccine 00:00:00 [facility] Influenza Virus 2007-06-01 Completed [facility] Vaccine 00:00:00 [facility] Influenza Virus 2007-06-01 Completed [facility] Vaccine 00:00:00 [facility] Influenza Virus 2007-06-01 Completed [facility] Vaccine 00:00:00 [facility] Influenza Virus 2007-06-01 Completed [facility] Vaccine 00:00:00 [facility] Influenza Virus 2007-06-01 Completed [facility] Vaccine 00:00:00 [facility] Influenza Virus 2007-06-01 Completed [facility] Vaccine 00:00:00 [facility] Influenza Virus 2007-06-01 Completed [facility] Vaccine 00:00:00 [facility] Influenza Virus 2007-06-01 Completed [facility] Vaccine 00:00:00 [facility] Influenza Virus 2007-06-01 Completed [facility] Vaccine 00:00:00 [facility] Influenza Virus 2007-06-01 Completed [facility] Vaccine 00:00:00 [facility] Influenza Virus 2007-06-01 Completed [facility] Vaccine 00:00:00 [facility] Influenza Virus 2007-06-01 Completed [facility] Vaccine 00:00:00 [facility] Influenza Virus 2007-06-01 Completed [facility] Vaccine 00:00:00 [facility] Influenza Virus 2007-06-01 Completed [facility] Vaccine 00:00:00 [facility] Influenza Virus 2007-06-01 Completed [facility] Vaccine 00:00:00 [facility] Influenza Virus 2007-06-01 Completed [facility] Vaccine 00:00:00 [facility] Influenza Virus 2007-06-01 Completed [facility] Vaccine 00:00:00 [facility] Influenza Virus 2007-06-01 Completed [facility] Vaccine 00:00:00 [facility] Influenza Virus 2007-06-01 Completed [facility] Vaccine 00:00:00 [facility] Influenza Virus 2007-06-01 Completed [facility] Vaccine 00:00:00 [facility] Influenza Virus 2007-06-01 Completed [facility] Vaccine 00:00:00 [facility] Influenza Virus 2007-06-01 Completed [facility] Vaccine 00:00:00 [facility] Influenza Virus 2007-06-01 Completed [facility] Vaccine 00:00:00 [facility] Influenza Virus 2007-06-01 Completed [facility] Vaccine 00:00:00 [facility] Influenza Virus 2007-06-01 Completed [facility] Vaccine 00:00:00 [facility] Influenza Virus 2007-06-01 Completed [facility] Vaccine 00:00:00 [facility] Influenza Virus 2007-06-01 Completed [facility] Vaccine 00:00:00 [facility] Influenza Virus 2007-06-01 Completed [facility] Vaccine 00:00:00 [facility] Influenza Virus 2007-06-01 Completed [facility] Vaccine 00:00:00 [facility] Influenza Virus 2007-06-01 Completed [facility] Vaccine 00:00:00 [facility] Influenza Virus 2007-06-01 Completed [facility] Vaccine 00:00:00 [facility] Influenza Virus 2007-06-01 Completed [facility] Vaccine 00:00:00 [facility] Influenza Virus 2007-06-01 Completed [facility] Vaccine 00:00:00 [facility] Influenza Virus 2007-06-01 Completed [facility] Vaccine 00:00:00 [facility] Influenza Virus 2007-06-01 Completed [facility] Vaccine 00:00:00 [facility] Influenza Virus 2007-06-01 Completed [facility] Vaccine 00:00:00 [facility] Influenza Virus 2007-06-01 Completed [facility] Vaccine 00:00:00 [facility] DTAP 2006-05-24 Completed [facility] of 00:00:00 [facility] Proquad 2006-05-24 Completed [facility] of (MMR/VARICELLA) 00:00:00 [facility] Polio (IPV/OPV) 2006-05-24 Completed [facility] 00:00:00 [facility] DTAP 2006-05-24 Completed [facility] of 00:00:00 [facility] Proquad 2006-05-24 Completed [facility] of (MMR/VARICELLA) 00:00:00 [facility] Polio (IPV/OPV) 2006-05-24 Completed [facility] 00:00:00 [facility] DTAP 2006-05-24 Completed [facility] of 00:00:00 [facility] Proquad 2006-05-24 Completed [facility] (MMR/VARICELLA) 00:00:00 [facility] Polio (IPV/OPV) 2006-05-24 Completed [facility] 00:00:00 [facility] DTAP 2006-05-24 Completed [facility] of 00:00:00 [facility] Proquad 2006-05-24 Completed [facility] (MMR/VARICELLA) 00:00:00 [facility] Polio (IPV/OPV) 2006-05-24 Completed [facility] 00:00:00 [facility] DTAP 2006-05-24 Completed [facility] of 00:00:00 [facility] Proquad 2006-05-24 Completed [facility] (MMR/VARICELLA) 00:00:00 [facility] Polio (IPV/OPV) 2006-05-24 Completed [facility] 00:00:00 [facility] DTAP 2006-05-24 Completed [facility] of 00:00:00 [facility] Proquad 2006-05-24 Completed [facility] of (MMR/VARICELLA) 00:00:00 [facility] Polio (IPV/OPV) 2006-05-24 Completed [facility] 00:00:00 [facility] DTAP 2006-05-24 Completed [facility] 00:00:00 [facility] Proquad 2006-05-24 Completed [facility] of (MMR/VARICELLA) 00:00:00 [facility] Polio (IPV/OPV) 2006-05-24 Completed [facility] 00:00:00 [facility] DTAP 2006-05-24 Completed [facility] of 00:00:00 [facility] Proquad 2006-05-24 Completed [facility] of (MMR/VARICELLA) 00:00:00 [facility] [place] Polio (IPV/OPV) 2006-05-24 Completed [facility] 00:00:00 [facility] DTAP 2006-05-24 Completed [facility] of 00:00:00 [facility] Proquad 2006-05-24 Completed [facility] of (MMR/VARICELLA) 00:00:00 [facility] Polio (IPV/OPV) 2006-05-24 Completed [facility] 00:00:00 [facility] DTAP 2006-05-24 Completed [facility] of 00:00:00 [facility] Proquad 2006-05-24 Completed [facility] of (MMR/VARICELLA) 00:00:00 [facility] Polio (IPV/OPV) 2006-05-24 Completed [facility] 00:00:00 [facility] DTAP 2006-05-24 Completed [facility] of 00:00:00 [facility] Proquad 2006-05-24 Completed [facility] of (MMR/VARICELLA) 00:00:00 [facility] Polio (IPV/OPV) 2006-05-24 Completed [facility] 00:00:00 [facility] DTAP 2006-05-24 Completed [facility] of 00:00:00 [facility] Proquad 2006-05-24 Completed [facility] of (MMR/VARICELLA) 00:00:00 [facility] Polio (IPV/OPV) 2006-05-24 Completed [facility] 00:00:00 [facility] DTAP 2006-05-24 Completed [facility] of 00:00:00 [facility] Proquad 2006-05-24 Completed [facility] of (MMR/VARICELLA) 00:00:00 [facility] Polio (IPV/OPV) 2006-05-24 Completed [facility] 00:00:00 [facility] DTAP 2006-05-24 Completed [facility] of 00:00:00 [facility] Proquad 2006-05-24 Completed [facility] of (MMR/VARICELLA) 00:00:00 [facility] Polio (IPV/OPV) 2006-05-24 Completed [facility] 00:00:00 [facility] DTAP 2006-05-24 Completed [facility] of 00:00:00 [facility] Proquad 2006-05-24 Completed [facility] (MMR/VARICELLA) 00:00:00 [facility] Polio (IPV/OPV) 2006-05-24 Completed [facility] 00:00:00 [facility] DTAP 2006-05-24 Completed [facility] of 00:00:00 [facility] Proquad 2006-05-24 Completed [facility] of (MMR/VARICELLA) 00:00:00 [facility] Polio (IPV/OPV) 2006-05-24 Completed [facility] 00:00:00 [facility] DTAP 2006-05-24 Completed [facility] of 00:00:00 [facility] Proquad 2006-05-24 Completed [facility] of (MMR/VARICELLA) 00:00:00 [facility] Polio (IPV/OPV) 2006-05-24 Completed [facility] 00:00:00 [facility] DTAP 2006-05-24 Completed [facility] of 00:00:00 [facility] Proquad 2006-05-24 Completed [facility] of (MMR/VARICELLA) 00:00:00 [facility] Polio (IPV/OPV) 2006-05-24 Completed [facility] 00:00:00 [facility] DTAP 2006-05-24 Completed [facility] of 00:00:00 [facility] Proquad 2006-05-24 Completed [facility] of (MMR/VARICELLA) 00:00:00 [facility] Polio (IPV/OPV) 2006-05-24 Completed [facility] 00:00:00 [facility] DTAP 2006-05-24 Completed [facility] of 00:00:00 [facility] Proquad 2006-05-24 Completed [facility] of (MMR/VARICELLA) 00:00:00 [facility] Polio (IPV/OPV) 2006-05-24 Completed [facility] 00:00:00 [facility] DTAP 2006-05-24 Completed [facility] of 00:00:00 [facility] Proquad 2006-05-24 Completed [facility] of (MMR/VARICELLA) 00:00:00 [facility] Polio (IPV/OPV) 2006-05-24 Completed [facility] 00:00:00 [facility] DTAP 2006-05-24 Completed [facility] of 00:00:00 [facility] Proquad 2006-05-24 Completed [facility] (MMR/VARICELLA) 00:00:00 [facility] Polio (IPV/OPV) 2006-05-24 Completed [facility] 00:00:00 [facility] DTAP 2006-05-24 Completed [facility] of 00:00:00 [facility] Proquad 2006-05-24 Completed [facility] of (MMR/VARICELLA) 00:00:00 [facility] Polio (IPV/OPV) 2006-05-24 Completed [facility] 00:00:00 [facility] DTAP 2006-05-24 Completed [facility] of 00:00:00 [facility] Proquad 2006-05-24 Completed [facility] of (MMR/VARICELLA) 00:00:00 [facility] Polio (IPV/OPV) 2006-05-24 Completed [facility] 00:00:00 [facility] DTAP 2006-05-24 Completed [facility] of 00:00:00 [facility] Proquad 2006-05-24 Completed [facility] of (MMR/VARICELLA) 00:00:00 [facility] Polio (IPV/OPV) 2006-05-24 Completed [facility] 00:00:00 [facility] DTAP 2006-05-24 Completed [facility] of 00:00:00 [facility] Proquad 2006-05-24 Completed [facility] of (MMR/VARICELLA) 00:00:00 [facility] Polio (IPV/OPV) 2006-05-24 Completed [facility] 00:00:00 [facility] DTAP 2006-05-24 Completed [facility] of 00:00:00 [facility] Proquad 2006-05-24 Completed [facility] of (MMR/VARICELLA) 00:00:00 [facility] Polio (IPV/OPV) 2006-05-24 Completed [facility] 00:00:00 [facility] DTAP 2006-05-24 Completed [facility] of 00:00:00 [facility] Proquad 2006-05-24 Completed [facility] of (MMR/VARICELLA) 00:00:00 [facility] Polio (IPV/OPV) 2006-05-24 Completed [facility] 00:00:00 [facility] DTAP 2006-05-24 Completed [facility] of 00:00:00 [facility] Proquad 2006-05-24 Completed [facility] of (MMR/VARICELLA) 00:00:00 [facility] Polio (IPV/OPV) 2006-05-24 Completed [facility] 00:00:00 [facility] DTAP 2006-05-24 Completed [facility] of 00:00:00 [facility] Proquad 2006-05-24 Completed [facility] of (MMR/VARICELLA) 00:00:00 [facility] Polio (IPV/OPV) 2006-05-24 Completed [facility] 00:00:00 [facility] DTAP 2006-05-24 Completed [facility] of 00:00:00 [facility] Proquad 2006-05-24 Completed [facility] of (MMR/VARICELLA) 00:00:00 [facility] Polio (IPV/OPV) 2006-05-24 Completed [facility] 00:00:00 [facility] DTAP 2006-05-24 Completed [facility] of 00:00:00 [facility] Proquad 2006-05-24 Completed [facility] of (MMR/VARICELLA) 00:00:00 [facility] Polio (IPV/OPV) 2006-05-24 Completed [facility] 00:00:00 [facility] DTAP 2006-05-24 Completed [facility] of 00:00:00 [facility] Proquad 2006-05-24 Completed [facility] of (MMR/VARICELLA) 00:00:00 [facility] Polio (IPV/OPV) 2006-05-24 Completed [facility] 00:00:00 [facility] DTAP 2006-05-24 Completed [facility] of 00:00:00 [facility] Proquad 2006-05-24 Completed [facility] of (MMR/VARICELLA) 00:00:00 [facility] Polio (IPV/OPV) 2006-05-24 Completed [facility] 00:00:00 [facility] DTAP 2006-05-24 Completed [facility] of 00:00:00 [facility] Proquad 2006-05-24 Completed [facility] of (MMR/VARICELLA) 00:00:00 [facility] Polio (IPV/OPV) 2006-05-24 Completed [facility] 00:00:00 [facility] DTAP 2006-05-24 Completed [facility] of 00:00:00 [facility] Proquad 2006-05-24 Completed [facility] of (MMR/VARICELLA) 00:00:00 [facility] Polio (IPV/OPV) 2006-05-24 Completed [facility] 00:00:00 [facility] DTAP 2006-05-24 Completed [facility] of 00:00:00 [facility] Proquad 2006-05-24 Completed [facility] of (MMR/VARICELLA) 00:00:00 [facility] Polio (IPV/OPV) 2006-05-24 Completed [facility] 00:00:00 [facility] DTAP 2006-05-24 Completed [facility] of 00:00:00 [facility] Proquad 2006-05-24 Completed [facility] of (MMR/VARICELLA) 00:00:00 [facility] Polio (IPV/OPV) 2006-05-24 Completed [facility] 00:00:00 [facility] DTAP 2006-05-24 Completed [facility] of 00:00:00 [facility] Proquad 2006-05-24 Completed [facility] of (MMR/VARICELLA) 00:00:00 [facility] Polio (IPV/OPV) 2006-05-24 Completed [facility] 00:00:00 [facility] DTAP 2006-05-24 Completed [facility] of 00:00:00 [facility] Proquad 2006-05-24 Completed [facility] of (MMR/VARICELLA) 00:00:00 [facility] Polio (IPV/OPV) 2006-05-24 Completed [facility] 00:00:00 [facility] DTAP 2006-05-24 Completed [facility] of 00:00:00 [facility] Proquad 2006-05-24 Completed [facility] of (MMR/VARICELLA) 00:00:00 [facility] Polio (IPV/OPV) 2006-05-24 Completed [facility] 00:00:00 [facility] DTAP 2006-05-24 Completed [facility] of 00:00:00 [facility] Proquad 2006-05-24 Completed [facility] of (MMR/VARICELLA) 00:00:00 [facility] Polio (IPV/OPV) 2006-05-24 Completed [facility] 00:00:00 [facility] DTAP 2006-05-24 Completed [facility] of 00:00:00 [facility] Proquad 2006-05-24 Completed [facility] of (MMR/VARICELLA) 00:00:00 [facility] Polio (IPV/OPV) 2006-05-24 Completed [facility] 00:00:00 [facility] DTAP 2006-05-24 Completed [facility] of 00:00:00 [facility] Proquad 2006-05-24 Completed [facility] of (MMR/VARICELLA) 00:00:00 [facility] Polio (IPV/OPV) 2006-05-24 Completed [facility] 00:00:00 [facility] DTAP 2006-05-24 Completed [facility] of 00:00:00 [facility] Proquad 2006-05-24 Completed [facility] of (MMR/VARICELLA) 00:00:00 [facility] Polio (IPV/OPV) 2006-05-24 Completed [facility] 00:00:00 [facility] DTAP 2006-05-24 Completed [facility] of 00:00:00 [facility] Proquad 2006-05-24 Completed [facility] of (MMR/VARICELLA) 00:00:00 [facility] Polio (IPV/OPV) 2006-05-24 Completed [facility] 00:00:00 [facility] DTAP 2006-05-24 Completed [facility] of 00:00:00 [facility] Proquad 2006-05-24 Completed [facility] of (MMR/VARICELLA) 00:00:00 [facility] Polio (IPV/OPV) 2006-05-24 Completed [facility] 00:00:00 [facility] DTAP 2006-05-24 Completed [facility] of 00:00:00 [facility] Proquad 2006-05-24 Completed [facility] of (MMR/VARICELLA) 00:00:00 [facility] Polio (IPV/OPV) 2006-05-24 Completed [facility] 00:00:00 [facility] DTAP 2006-05-24 Completed [facility] of 00:00:00 [facility] Proquad 2006-05-24 Completed [facility] of (MMR/VARICELLA) 00:00:00 [facility] Polio (IPV/OPV) 2006-05-24 Completed [facility] 00:00:00 [facility] DTAP 2006-05-24 Completed [facility] of 00:00:00 [facility] Proquad 2006-05-24 Completed [facility] of (MMR/VARICELLA) 00:00:00 [facility] Polio (IPV/OPV) 2006-05-24 Completed [facility] 00:00:00 [facility] DTAP 2006-05-24 Completed [facility] of 00:00:00 [facility] Proquad 2006-05-24 Completed [facility] of (MMR/VARICELLA) 00:00:00 [facility] Polio (IPV/OPV) 2006-05-24 Completed [facility] 00:00:00 [facility] DTAP 2006-05-24 Completed [facility] of 00:00:00 [facility] Proquad 2006-05-24 Completed [facility] of (MMR/VARICELLA) 00:00:00 [facility] Polio (IPV/OPV) 2006-05-24 Completed [facility] 00:00:00 [facility] DTAP 2006-05-24 Completed [facility] of 00:00:00 [facility] Proquad 2006-05-24 Completed [facility] of (MMR/VARICELLA) 00:00:00 [facility] Polio (IPV/OPV) 2006-05-24 Completed [facility] 00:00:00 [facility] DTAP 2006-05-24 Completed [facility] of 00:00:00 [facility] Proquad 2006-05-24 Completed [facility] of (MMR/VARICELLA) 00:00:00 [facility] Polio (IPV/OPV) 2006-05-24 Completed [facility] 00:00:00 [facility] DTAP 2006-05-24 Completed [facility] of 00:00:00 [facility] Proquad 2006-05-24 Completed [facility] of (MMR/VARICELLA) 00:00:00 [facility] Polio (IPV/OPV) 2006-05-24 Completed [facility] 00:00:00 [facility] DTAP 2006-05-24 Completed [facility] of 00:00:00 [facility] Proquad 2006-05-24 Completed [facility] of (MMR/VARICELLA) 00:00:00 [facility] Polio (IPV/OPV) 2006-05-24 Completed [facility] 00:00:00 [facility] DTAP 2006-05-24 Completed [facility] 00:00:00 [facility] Proquad 2006-05-24 Completed [facility] of (MMR/VARICELLA) 00:00:00 [facility] Polio (IPV/OPV) 2006-05-24 Completed [facility] 00:00:00 [facility] DTAP 2006-05-24 Completed [facility] 00:00:00 [facility] Proquad 2006-05-24 Completed [facility] of (MMR/VARICELLA) 00:00:00 [facility] [place] Polio (IPV/OPV) 2006-05-24 Completed [facility] 00:00:00 [facility] DTAP 2006-05-24 Completed [facility] 00:00:00 [facility] Proquad 2006-05-24 Completed [facility] (MMR/VARICELLA) 00:00:00 [facility] Polio (IPV/OPV) 2006-05-24 Completed [facility] 00:00:00 [facility] DTAP 2006-05-24 Completed [facility] 00:00:00 [facility] Proquad 2006-05-24 Completed [facility] of (MMR/VARICELLA) 00:00:00 [facility] Polio (IPV/OPV) 2006-05-24 Completed [facility] 00:00:00 [facility] DTAP 2006-05-24 Completed [facility] of 00:00:00 [facility] Proquad 2006-05-24 Completed [facility] of (MMR/VARICELLA) 00:00:00 [facility] Polio (IPV/OPV) 2006-05-24 Completed [facility] 00:00:00 [facility] DTAP 2006-05-24 Completed [facility] 00:00:00 [facility] Proquad 2006-05-24 Completed [facility] of (MMR/VARICELLA) 00:00:00 [facility] Polio (IPV/OPV) 2006-05-24 Completed [facility] 00:00:00 [facility] DTAP 2006-05-24 Completed [facility] 00:00:00 [facility] Proquad 2006-05-24 Completed [facility] of (MMR/VARICELLA) 00:00:00 [facility] Polio (IPV/OPV) 2006-05-24 Completed [facility] 00:00:00 [facility] DTAP 2006-05-24 Completed [facility] of 00:00:00 [facility] Proquad 2006-05-24 Completed [facility] of (MMR/VARICELLA) 00:00:00 [facility] Polio (IPV/OPV) 2006-05-24 Completed [facility] 00:00:00 [facility] DTAP 2006-05-24 Completed [facility] 00:00:00 [facility] Proquad 2006-05-24 Completed [facility] (MMR/VARICELLA) 00:00:00 [facility] Polio (IPV/OPV) 2006-05-24 Completed [facility] 00:00:00 [facility] DTAP 2006-05-24 Completed [facility] 00:00:00 [facility] Proquad 2006-05-24 Completed [facility] of (MMR/VARICELLA) 00:00:00 [facility] Polio (IPV/OPV) 2006-05-24 Completed [facility] 00:00:00 [facility] DTAP 2006-05-24 Completed [facility] of 00:00:00 [facility] Proquad 2006-05-24 Completed [facility] of (MMR/VARICELLA) 00:00:00 [facility] Polio (IPV/OPV) 2006-05-24 Completed [facility] 00:00:00 [facility] DTAP 2006-05-24 Completed [facility] of 00:00:00 [facility] Proquad 2006-05-24 Completed [facility] of (MMR/VARICELLA) 00:00:00 [facility] Polio (IPV/OPV) 2006-05-24 Completed [facility] 00:00:00 [facility] DTAP 2006-05-24 Completed [facility] of 00:00:00 [facility] Proquad 2006-05-24 Completed [facility] of (MMR/VARICELLA) 00:00:00 [facility] Polio (IPV/OPV) 2006-05-24 Completed [facility] 00:00:00 [facility] DTAP 2006-05-24 Completed [facility] of 00:00:00 [facility] Proquad 2006-05-24 Completed [facility] of (MMR/VARICELLA) 00:00:00 [facility] Polio (IPV/OPV) 2006-05-24 Completed [facility] 00:00:00 [facility] DTAP 2006-05-24 Completed [facility] of 00:00:00 [facility] Proquad 2006-05-24 Completed [facility] of (MMR/VARICELLA) 00:00:00 [facility] Polio (IPV/OPV) 2006-05-24 Completed [facility] 00:00:00 [facility] DTAP 2006-05-24 Completed [facility] of 00:00:00 [facility] Proquad 2006-05-24 Completed [facility] (MMR/VARICELLA) 00:00:00 [facility] Polio (IPV/OPV) 2006-05-24 Completed [facility] 00:00:00 [facility] DTAP 2006-05-24 Completed [facility] of 00:00:00 [facility] Proquad 2006-05-24 Completed [facility] (MMR/VARICELLA) 00:00:00 [facility] Polio (IPV/OPV) 2006-05-24 Completed [facility] 00:00:00 [facility] DTAP 2006-05-24 Completed [facility] of 00:00:00 [facility] Proquad 2006-05-24 Completed [facility] of (MMR/VARICELLA) 00:00:00 [facility] Polio (IPV/OPV) 2006-05-24 Completed [facility] 00:00:00 [facility] DTAP 2006-05-24 Completed [facility] of 00:00:00 [facility] Proquad 2006-05-24 Completed [facility] of (MMR/VARICELLA) 00:00:00 [facility] Polio (IPV/OPV) 2006-05-24 Completed [facility] 00:00:00 [facility] DTAP 2006-05-24 Completed [facility] of 00:00:00 [facility] Proquad 2006-05-24 Completed [facility] of (MMR/VARICELLA) 00:00:00 [facility] Polio (IPV/OPV) 2006-05-24 Completed [facility] 00:00:00 [facility] DTAP 2006-05-24 Completed [facility] of 00:00:00 [facility] Proquad 2006-05-24 Completed [facility] of (MMR/VARICELLA) 00:00:00 [facility] Polio (IPV/OPV) 2006-05-24 Completed [facility] 00:00:00 [facility] DTAP 2006-05-24 Completed [facility] of 00:00:00 [facility] Proquad 2006-05-24 Completed [facility] of (MMR/VARICELLA) 00:00:00 [facility] Polio (IPV/OPV) 2006-05-24 Completed [facility] 00:00:00 [facility] DTAP 2006-05-24 Completed [facility] of 00:00:00 [facility] Proquad 2006-05-24 Completed [facility] of (MMR/VARICELLA) 00:00:00 [facility] Polio (IPV/OPV) 2006-05-24 Completed [facility] 00:00:00 [facility] DTAP 2006-05-24 Completed [facility] of 00:00:00 [facility] Proquad 2006-05-24 Completed [facility] of (MMR/VARICELLA) 00:00:00 [facility] Polio (IPV/OPV) 2006-05-24 Completed [facility] 00:00:00 [facility] DTAP 2006-05-24 Completed [facility] of 00:00:00 [facility] Proquad 2006-05-24 Completed [facility] of (MMR/VARICELLA) 00:00:00 [facility] Polio (IPV/OPV) 2006-05-24 Completed [facility] 00:00:00 [facility] DTAP 2006-05-24 Completed [facility] of 00:00:00 [facility] Proquad 2006-05-24 Completed [facility] of (MMR/VARICELLA) 00:00:00 [facility] Polio (IPV/OPV) 2006-05-24 Completed [facility] 00:00:00 [facility] DTAP 2006-05-24 Completed [facility] of 00:00:00 [facility] Proquad 2006-05-24 Completed [facility] of (MMR/VARICELLA) 00:00:00 [facility] Polio (IPV/OPV) 2006-05-24 Completed [facility] 00:00:00 [facility] DTAP 2006-05-24 Completed [facility] 00:00:00 [facility] Proquad 2006-05-24 Completed [facility] of (MMR/VARICELLA) 00:00:00 [facility] Polio (IPV/OPV) 2006-05-24 Completed [facility] 00:00:00 [facility] DTAP 2006-05-24 Completed [facility] of 00:00:00 [facility] Proquad 2006-05-24 Completed [facility] of (MMR/VARICELLA) 00:00:00 [facility] Polio (IPV/OPV) 2006-05-24 Completed [facility] 00:00:00 [facility] DTAP 2006-05-24 Completed [facility] of 00:00:00 [facility] Proquad 2006-05-24 Completed [facility] of (MMR/VARICELLA) 00:00:00 [facility] Polio (IPV/OPV) 2006-05-24 Completed [facility] 00:00:00 [facility] DTAP 2006-05-24 Completed [facility] 00:00:00 [facility] Proquad 2006-05-24 Completed [facility] of (MMR/VARICELLA) 00:00:00 [facility] Polio (IPV/OPV) 2006-05-24 Completed [facility] 00:00:00 [facility] DTAP 2006-05-24 Completed [facility] of 00:00:00 [facility] Proquad 2006-05-24 Completed [facility] of (MMR/VARICELLA) 00:00:00 [facility] Polio (IPV/OPV) 2006-05-24 Completed [facility] 00:00:00 [facility] DTAP 2006-05-24 Completed [facility] of 00:00:00 [facility] Proquad 2006-05-24 Completed [facility] (MMR/VARICELLA) 00:00:00 [facility] Polio (IPV/OPV) 2006-05-24 Completed [facility] 00:00:00 [facility] DTAP 2006-05-24 Completed [facility] 00:00:00 [facility] Proquad 2006-05-24 Completed [facility] of (MMR/VARICELLA) 00:00:00 [facility] Polio (IPV/OPV) 2006-05-24 Completed [facility] 00:00:00 [facility] DTAP 2006-05-24 Completed [facility] 00:00:00 [facility] Proquad 2006-05-24 Completed [facility] of (MMR/VARICELLA) 00:00:00 [facility] Polio (IPV/OPV) 2006-05-24 Completed [facility] 00:00:00 [facility] DTAP 2006-05-24 Completed [facility] 00:00:00 [facility] Proquad 2006-05-24 Completed [facility] of (MMR/VARICELLA) 00:00:00 [facility] Polio (IPV/OPV) 2006-05-24 Completed [facility] 00:00:00 [facility] DTAP 2006-05-24 Completed [facility] of 00:00:00 [facility] Proquad 2006-05-24 Completed [facility] of (MMR/VARICELLA) 00:00:00 [facility] Polio (IPV/OPV) 2006-05-24 Completed [facility] 00:00:00 [facility] DTAP 2006-05-24 Completed [facility] of 00:00:00 [facility] Proquad 2006-05-24 Completed [facility] of (MMR/VARICELLA) 00:00:00 [facility] Polio (IPV/OPV) 2006-05-24 Completed [facility] 00:00:00 [facility] DTAP 2006-05-24 Completed [facility] 00:00:00 [facility] Proquad 2006-05-24 Completed [facility] (MMR/VARICELLA) 00:00:00 [facility] Polio (IPV/OPV) 2006-05-24 Completed [facility] 00:00:00 [facility] DTAP 2006-05-24 Completed [facility] 00:00:00 [facility] Proquad 2006-05-24 Completed [facility] of (MMR/VARICELLA) 00:00:00 [facility] Polio (IPV/OPV) 2006-05-24 Completed [facility] 00:00:00 [facility] DTAP 2006-05-24 Completed [facility] of 00:00:00 [facility] Proquad 2006-05-24 Completed [facility] of (MMR/VARICELLA) 00:00:00 [facility] Polio (IPV/OPV) 2006-05-24 Completed [facility] 00:00:00 [facility] DTAP 2006-05-24 Completed [facility] of 00:00:00 [facility] Proquad 2006-05-24 Completed [facility] of (MMR/VARICELLA) 00:00:00 [facility] Polio (IPV/OPV) 2006-05-24 Completed [facility] 00:00:00 [facility] DTAP 2006-05-24 Completed [facility] of 00:00:00 [facility] Proquad 2006-05-24 Completed [facility] of (MMR/VARICELLA) 00:00:00 [facility] Polio (IPV/OPV) 2006-05-24 Completed [facility] 00:00:00 [facility] DTAP 2006-05-24 Completed [facility] 00:00:00 [facility] Proquad 2006-05-24 Completed [facility] (MMR/VARICELLA) 00:00:00 [facility] Polio (IPV/OPV) 2006-05-24 Completed [facility] 00:00:00 [facility] DTAP 2006-05-24 Completed [facility] of 00:00:00 [facility] Proquad 2006-05-24 Completed [facility] of (MMR/VARICELLA) 00:00:00 [facility] Polio (IPV/OPV) 2006-05-24 Completed [facility] 00:00:00 [facility] DTAP 2006-05-24 Completed [facility] of 00:00:00 [facility] Proquad 2006-05-24 Completed [facility] of (MMR/VARICELLA) 00:00:00 [facility] Polio (IPV/OPV) 2006-05-24 Completed [facility] 00:00:00 [facility] DTAP 2006-05-24 Completed [facility] of 00:00:00 [facility] Proquad 2006-05-24 Completed [facility] of (MMR/VARICELLA) 00:00:00 [facility] Polio (IPV/OPV) 2006-05-24 Completed [facility] 00:00:00 [facility] DTAP 2006-05-24 Completed [facility] of 00:00:00 [facility] Proquad 2006-05-24 Completed [facility] of (MMR/VARICELLA) 00:00:00 [facility] Polio (IPV/OPV) 2006-05-24 Completed [facility] 00:00:00 [facility] DTAP 2006-05-24 Completed [facility] of 00:00:00 [facility] Proquad 2006-05-24 Completed [facility] of (MMR/VARICELLA) 00:00:00 [facility] Polio (IPV/OPV) 2006-05-24 Completed [facility] 00:00:00 [facility] HEPATITIS A 2005-05-19 Completed [facility] of 00:00:00 [facility] Influenza Virus 2005-05-19 Completed [facility] y of Vaccine 00:00:00 [facility] HEPATITIS A 2005-05-19 Completed [facility] 00:00:00 [facility] Influenza Virus 2005-05-19 Completed [facility] Vaccine 00:00:00 [facility] HEPATITIS A 2005-05-19 Completed [facility] 00:00:00 [facility] Influenza Virus 2005-05-19 Completed [facility] Vaccine 00:00:00 [facility] HEPATITIS A 2005-05-19 Completed [facility] 00:00:00 [facility] Influenza Virus 2005-05-19 Completed [facility] of Vaccine 00:00:00 [facility] HEPATITIS A 2005-05-19 Completed [facility] of 00:00:00 [facility] Influenza Virus 2005-05-19 Completed [facility] of Vaccine 00:00:00 [facility] HEPATITIS A 2005-05-19 Completed [facility] of 00:00:00 [facility] Influenza Virus 2005-05-19 Completed [facility] of Vaccine 00:00:00 [facility] HEPATITIS A 2005-05-19 Completed [facility] of 00:00:00 [facility] Influenza Virus 2005-05-19 Completed [facility] of Vaccine 00:00:00 [facility] HEPATITIS A 2005-05-19 Completed [facility] 00:00:00 [facility] Influenza Virus 2005-05-19 Completed [facility] of Vaccine 00:00:00 [facility] HEPATITIS A 2005-05-19 Completed [facility] 00:00:00 [facility] Influenza Virus 2005-05-19 Completed [facility] of Vaccine 00:00:00 [facility] HEPATITIS A 2005-05-19 Completed [facility] 00:00:00 [facility] Influenza Virus 2005-05-19 Completed [facility] of Vaccine 00:00:00 [facility] HEPATITIS A 2005-05-19 Completed [facility] 00:00:00 [facility] Influenza Virus 2005-05-19 Completed [facility] of Vaccine 00:00:00 [facility] HEPATITIS A 2005-05-19 Completed [facility] 00:00:00 [facility] Influenza Virus 2005-05-19 Completed [facility] of Vaccine 00:00:00 [facility] HEPATITIS A 2005-05-19 Completed [facility] 00:00:00 [facility] Influenza Virus 2005-05-19 Completed [facility] y of Vaccine 00:00:00 [facility] HEPATITIS A 2005-05-19 Completed [facility] 00:00:00 [facility] Influenza Virus 2005-05-19 Completed [facility] of Vaccine 00:00:00 [facility] HEPATITIS A 2005-05-19 Completed [facility] 00:00:00 [facility] Influenza Virus 2005-05-19 Completed [facility] of Vaccine 00:00:00 [facility] HEPATITIS A 2005-05-19 Completed [facility] 00:00:00 [facility] Influenza Virus 2005-05-19 Completed [facility] of Vaccine 00:00:00 [facility] HEPATITIS A 2005-05-19 Completed [facility] 00:00:00 [facility] Influenza Virus 2005-05-19 Completed [facility] of Vaccine 00:00:00 [facility] HEPATITIS A 2005-05-19 Completed [facility] 00:00:00 [facility] Influenza Virus 2005-05-19 Completed [facility] y of Vaccine 00:00:00 [facility] HEPATITIS A 2005-05-19 Completed [facility] of 00:00:00 [facility] Influenza Virus 2005-05-19 Completed [facility] y of Vaccine 00:00:00 [facility] HEPATITIS A 2005-05-19 Completed [facility] 00:00:00 [facility] Influenza Virus 2005-05-19 Completed [facility] of Vaccine 00:00:00 [facility] HEPATITIS A 2005-05-19 Completed [facility] 00:00:00 [facility] Influenza Virus 2005-05-19 Completed [facility] of Vaccine 00:00:00 [facility] HEPATITIS A 2005-05-19 Completed [facility] 00:00:00 [facility] Influenza Virus 2005-05-19 Completed [facility] of Vaccine 00:00:00 [facility] HEPATITIS A 2005-05-19 Completed [facility] 00:00:00 [facility] Influenza Virus 2005-05-19 Completed [facility] of Vaccine 00:00:00 [facility] HEPATITIS A 2005-05-19 Completed [facility] 00:00:00 [facility] Influenza Virus 2005-05-19 Completed [facility] of Vaccine 00:00:00 [facility] HEPATITIS A 2005-05-19 Completed [facility] 00:00:00 [facility] Influenza Virus 2005-05-19 Completed [facility] of Vaccine 00:00:00 [facility] HEPATITIS A 2005-05-19 Completed [facility] 00:00:00 [facility] Influenza Virus 2005-05-19 Completed [facility] of Vaccine 00:00:00 [facility] HEPATITIS A 2005-05-19 Completed [facility] 00:00:00 [facility] Influenza Virus 2005-05-19 Completed [facility] of Vaccine 00:00:00 [facility] HEPATITIS A 2005-05-19 Completed [facility] 00:00:00 [facility] Influenza Virus 2005-05-19 Completed [facility] of Vaccine 00:00:00 [facility] HEPATITIS A 2005-05-19 Completed [facility] 00:00:00 [facility] Influenza Virus 2005-05-19 Completed [facility] of Vaccine 00:00:00 [facility] HEPATITIS A 2005-05-19 Completed [facility] 00:00:00 [facility] Influenza Virus 2005-05-19 Completed [facility] of Vaccine 00:00:00 [facility] HEPATITIS A 2005-05-19 Completed [facility] 00:00:00 [facility] Influenza Virus 2005-05-19 Completed [facility] of Vaccine 00:00:00 [facility] HEPATITIS A 2005-05-19 Completed [facility] 00:00:00 [facility] Influenza Virus 2005-05-19 Completed [facility] of Vaccine 00:00:00 [facility] HEPATITIS A 2005-05-19 Completed [facility] 00:00:00 [facility] Influenza Virus 2005-05-19 Completed [facility] of Vaccine 00:00:00 [facility] HEPATITIS A 2005-05-19 Completed [facility] 00:00:00 [facility] Influenza Virus 2005-05-19 Completed [facility] of Vaccine 00:00:00 [facility] HEPATITIS A 2005-05-19 Completed [facility] 00:00:00 [facility] Influenza Virus 2005-05-19 Completed [facility] of Vaccine 00:00:00 [facility] HEPATITIS A 2005-05-19 Completed [facility] 00:00:00 [facility] Influenza Virus 2005-05-19 Completed [facility] of Vaccine 00:00:00 [facility] HEPATITIS A 2005-05-19 Completed [facility] 00:00:00 [facility] Influenza Virus 2005-05-19 Completed [facility] of Vaccine 00:00:00 [facility] HEPATITIS A 2005-05-19 Completed [facility] 00:00:00 [facility] Influenza Virus 2005-05-19 Completed [facility] of Vaccine 00:00:00 [facility] HEPATITIS A 2005-05-19 Completed [facility] 00:00:00 [facility] Influenza Virus 2005-05-19 Completed [facility] Vaccine 00:00:00 [facility] HEPATITIS A 2005-05-19 Completed [facility] 00:[facility]00 [facility] [facility] Influenza Virus 2005-05-19 Completed [facility] Vaccine 00:00:00 [facility] HEPATITIS A 2005-05-19 Completed [facility] 00:00:00 [facility] Influenza Virus 2005-05-19 Completed [facility] Vaccine 00:00:00 [facility] HEPATITIS A 2005-05-19 Completed [facility] 00:00:00 [facility] Influenza Virus 2005-05-19 Completed [facility] Vaccine 00:00:00 [facility] HEPATITIS A 2005-05-19 Completed [facility] 00:00:00 [facility] Influenza Virus 2005-05-19 Completed [facility] Vaccine 00:00:00 [facility] HEPATITIS A 2005-05-19 Completed [facility] 00:00:00 [facility] Influenza Virus 2005-05-19 Completed [facility] Vaccine 00:00:00 [facility] HEPATITIS A 2005-05-19 Completed [facility] 00:00:00 [facility] Influenza Virus 2005-05-19 Completed [facility] Vaccine 00:00:00 [facility] HEPATITIS A 2005-05-19 Completed [facility] 00:00:00 [facility] Influenza Virus 2005-05-19 Completed [facility] Vaccine 00:00:00 [facility] HEPATITIS A 2005-05-19 Completed [facility] 00:00:00 [facility] Influenza Virus 2005-05-19 Completed [facility] Vaccine 00:00:00 [facility] HEPATITIS A 2005-05-19 Completed [facility] 00:00:00 [facility] Influenza Virus 2005-05-19 Completed [facility] Vaccine 00:00:00 [facility] HEPATITIS A 2005-05-19 Completed [facility] 00:00:00 [facility] Influenza Virus 2005-05-19 Completed [facility] Vaccine 00:00:00 [facility] HEPATITIS A 2005-05-19 Completed [facility] 00:00:00 [facility] Influenza Virus 2005-05-19 Completed [facility] Vaccine 00:00:00 [facility] HEPATITIS A 2005-05-19 Completed [facility] 00:00:00 [facility] Influenza Virus 2005-05-19 Completed [facility] Vaccine 00:00:00 [facility] HEPATITIS A 2005-05-19 Completed [facility] 00:00:00 [facility] Influenza Virus 2005-05-19 Completed [facility] Vaccine 00:00:00 [facility] HEPATITIS A 2005-05-19 Completed [facility] 00:00:00 [facility] Influenza Virus 2005-05-19 Completed [facility] Vaccine 00:00:00 [facility] HEPATITIS A 2005-05-19 Completed [facility] 00:00:00 [facility] Influenza Virus 2005-05-19 Completed [facility] Vaccine 00:00:00 [facility] HEPATITIS A 2005-05-19 Completed [facility] 00:00:00 [facility] Influenza Virus 2005-05-19 Completed [facility] Vaccine 00:00:00 [facility] HEPATITIS A 2005-05-19 Completed [facility] 00:00:00 [facility] Influenza Virus 2005-05-19 Completed [facility] Vaccine 00:00:00 [facility] HEPATITIS A 2005-05-19 Completed [facility] 00:00:00 [facility] Influenza Virus 2005-05-19 Completed [facility] Vaccine 00:00:00 [facility] HEPATITIS A 2005-05-19 Completed [facility] 00:00:00 [facility] Influenza Virus 2005-05-19 Completed [facility] Vaccine 00:00:00 [facility] HEPATITIS A 2005-05-19 Completed [facility] 00:00:00 [facility] Influenza Virus 2005-05-19 Completed [facility] Vaccine 00:00:00 [facility] HEPATITIS A 2005-05-19 Completed [facility] 00:00:00 [facility] Influenza Virus 2005-05-19 Completed [facility] Vaccine 00:00:00 [facility] HEPATITIS A 2005-05-19 Completed [facility] 00:00:00 [facility] Influenza Virus 2005-05-19 Completed [facility] Vaccine 00:00:00 [facility] HEPATITIS A 2005-05-19 Completed [facility] 00:00:00 [facility] Influenza Virus 2005-05-19 Completed [facility] Vaccine 00:00:00 [facility] HEPATITIS A 2005-05-19 Completed [facility] 00:00:00 [facility] Influenza Virus 2005-05-19 Completed [facility] Vaccine 00:00:00 [facility] HEPATITIS A 2005-05-19 Completed [facility] 00:00:00 [facility] Influenza Virus 2005-05-19 Completed [facility] Vaccine 00:00:00 [facility] HEPATITIS A 2005-05-19 Completed [facility] 00:00:00 [facility] Influenza Virus 2005-05-19 Completed [facility] Vaccine 00:00:00 [facility] HEPATITIS A 2005-05-19 Completed [facility] 00:00:00 [facility] Influenza Virus 2005-05-19 Completed [facility] Vaccine 00:00:00 [facility] HEPATITIS A 2005-05-19 Completed [facility] 00:00:00 [facility] Influenza Virus 2005-05-19 Completed [facility] Vaccine 00:00:00 [facility] HEPATITIS A 2005-05-19 Completed [facility] 00:00:00 [facility] Influenza Virus 2005-05-19 Completed [facility] Vaccine 00:00:00 [facility] HEPATITIS A 2005-05-19 Completed [facility] 00:00:00 [facility] Influenza Virus 2005-05-19 Completed [facility] Vaccine 00:00:00 [facility] HEPATITIS A 2005-05-19 Completed [facility] 00:00:00 [facility] Influenza Virus 2005-05-19 Completed [facility] Vaccine 00:00:00 [facility] HEPATITIS A 2005-05-19 Completed [facility] 00:00:00 [facility] Influenza Virus 2005-05-19 Completed [facility] Vaccine 00:00:00 [facility] HEPATITIS A 2005-05-19 Completed [facility] 00:00:00 [facility] Influenza Virus 2005-05-19 Completed [facility] Vaccine 00:00:00 [facility] HEPATITIS A 2005-05-19 Completed [facility] 00:00:00 [facility] Influenza Virus 2005-05-19 Completed [facility] Vaccine 00:00:00 [facility] HEPATITIS A 2005-05-19 Completed [facility] 00:00:00 [facility] Influenza Virus 2005-05-19 Completed [facility] Vaccine 00:00:00 [facility] HEPATITIS A 2005-05-19 Completed [facility] 00:00:00 [facility] Influenza Virus 2005-05-19 Completed [facility] Vaccine 00:00:00 [facility] HEPATITIS A 2005-05-19 Completed [facility] 00:00:00 [facility] Influenza Virus 2005-05-19 Completed [facility] Vaccine 00:00:00 [facility] HEPATITIS A 2005-05-19 Completed [facility] 00:00:00 [facility] Influenza Virus 2005-05-19 Completed [facility] Vaccine 00:00:00 [facility] HEPATITIS A 2005-05-19 Completed [facility] 00:00:00 [facility] Influenza Virus 2005-05-19 Completed [facility] Vaccine 00:00:00 [facility] HEPATITIS A 2005-05-19 Completed [facility] 00:00:00 [facility] Influenza Virus 2005-05-19 Completed [facility] Vaccine 00:00:00 [facility] HEPATITIS A 2005-05-19 Completed [facility] 00:00:00 [facility] Influenza Virus 2005-05-19 Completed [facility] Vaccine 00:00:00 [facility] HEPATITIS A 2005-05-19 Completed [facility] 00:00:00 [facility] Influenza Virus 2005-05-19 Completed [facility] Vaccine 00:00:00 [facility] HEPATITIS A 2005-05-19 Completed [facility] 00:00:00 [facility] Influenza Virus 2005-05-19 Completed [facility] Vaccine 00:00:00 [facility] HEPATITIS A 2005-05-19 Completed [facility] 00:00:00 [facility] Influenza Virus 2005-05-19 Completed [facility] Vaccine 00:00:00 [facility] HEPATITIS A 2005-05-19 Completed [facility] 00:00:00 [facility] Influenza Virus 2005-05-19 Completed [facility] Vaccine 00:00:00 [facility] HEPATITIS A 2005-05-19 Completed [facility] 00:00:00 [facility] Influenza Virus 2005-05-19 Completed [facility] Vaccine 00:00:00 [facility] HEPATITIS A 2005-05-19 Completed [facility] 00:00:00 [facility] Influenza Virus 2005-05-19 Completed [facility] Vaccine 00:00:00 [facility] HEPATITIS A 2005-05-19 Completed [facility] 00:00:00 [facility] Influenza Virus 2005-05-19 Completed [facility] Vaccine 00:00:00 [facility] HEPATITIS A 2005-05-19 Completed [facility] 00:00:00 [facility] Influenza Virus 2005-05-19 Completed [facility] Vaccine 00:00:00 [facility] HEPATITIS A 2005-05-19 Completed [facility] 00:00:00 [facility] Influenza Virus 2005-05-19 Completed [facility] Vaccine 00:00:00 [facility] HEPATITIS A 2005-05-19 Completed [facility] 00:00:00 [facility] Influenza Virus 2005-05-19 Completed [facility] Vaccine 00:00:00 [facility] HEPATITIS A 2005-05-19 Completed [facility] 00:00:00 [facility] Influenza Virus 2005-05-19 Completed [facility] Vaccine 00:00:00 [facility] HEPATITIS A 2005-05-19 Completed [facility] 00:00:00 [facility] Influenza Virus 2005-05-19 Completed [facility] Vaccine 00:00:00 [facility] HEPATITIS A 2005-05-19 Completed [facility] 00:00:00 [facility] Influenza Virus 2005-05-19 Completed [facility] Vaccine 00:00:00 [facility] HEPATITIS A 2005-05-19 Completed [facility] 00:00:00 [facility] Influenza Virus 2005-05-19 Completed [facility] Vaccine 00:00:00 [facility] HEPATITIS A 2005-05-19 Completed [facility] 00:00:00 [facility] Influenza Virus 2005-05-19 Completed [facility] Vaccine 00:00:00 [facility] HEPATITIS A 2005-05-19 Completed [facility] 00:00:00 [facility] Influenza Virus 2005-05-19 Completed [facility] Vaccine 00:00:00 [facility] HEPATITIS A 2005-05-19 Completed [facility] 00:00:00 [facility] Influenza Virus 2005-05-19 Completed [facility] Vaccine 00:00:00 [facility] HEPATITIS A 2005-05-19 Completed [facility] 00:00:00 [facility] Influenza Virus 2005-05-19 Completed [facility] Vaccine 00:00:00 [facility] HEPATITIS A 2005-05-19 Completed [facility] 00:00:00 [facility] Influenza Virus 2005-05-19 Completed [facility] Vaccine 00:00:00 [facility] HEPATITIS A 2005-05-19 Completed [facility] 00:00:00 [facility] Influenza Virus 2005-05-19 Completed [facility] Vaccine 00:00:00 [facility] HEPATITIS A 2005-05-19 Completed [facility] 00:00:00 [facility] Influenza Virus 2005-05-19 Completed [facility] Vaccine 00:00:00 [facility] HEPATITIS A 2005-05-19 Completed [facility] 00:00:00 [facility] Influenza Virus 2005-05-19 Completed [facility] Vaccine 00:00:00 [facility] HEPATITIS A 2005-05-19 Completed [facility] 00:00:00 [facility] Influenza Virus 2005-05-19 Completed [facility] Vaccine 00:00:00 [facility] HEPATITIS A 2005-05-19 Completed [facility] 00:00:00 [facility] Influenza Virus 2005-05-19 Completed [facility] Vaccine 00:00:00 [facility] HEPATITIS A 2005-05-19 Completed [facility] 00:00:00 [facility] Influenza Virus 2005-05-19 Completed [facility] Vaccine 00:00:00 [facility] HEPATITIS A 2004-05-17 Completed [facility] 00:00:00 [facility] HEPATITIS A 2004-05-17 Completed [facility] 00:00:00 [facility] HEPATITIS A 2004-05-17 Completed [facility] 00:00:00 [facility] HEPATITIS A 2004-05-17 Completed [facility] 00:00:00 [facility] HEPATITIS A 2004-05-17 Completed [facility] 00:00:00 [facility] HEPATITIS A 2004-05-17 Completed [facility] 00:00:00 [facility] HEPATITIS A 2004-05-17 Completed [facility] 00:00:00 [facility] HEPATITIS A 2004-05-17 Completed [facility] 00:00:00 [facility] HEPATITIS A 2004-05-17 Completed [facility] 00:00:00 [facility] HEPATITIS A 2004-05-17 Completed [facility] 00:00:00 [facility] HEPATITIS A 2004-05-17 Completed [facility] 00:00:00 [facility] HEPATITIS A 2004-05-17 Completed [facility] 00:00:00 [facility] HEPATITIS A 2004-05-17 Completed [facility] 00:00:00 [facility] HEPATITIS A 2004-05-17 Completed [facility] 00:00:00 [facility] HEPATITIS A 2004-05-17 Completed [facility] 00:00:00 [facility] HEPATITIS A 2004-05-17 Completed [facility] 00:00:00 [facility] HEPATITIS A 2004-05-17 Completed [facility] 00:00:00 [facility] HEPATITIS A 2004-05-17 Completed [facility] 00:00:00 [facility] HEPATITIS A 2004-05-17 Completed [facility] 00:00:00 [facility] HEPATITIS A 2004-05-17 Completed [facility] 00:00:00 [facility] HEPATITIS A 2004-05-17 Completed [facility] 00:00:00 [facility] HEPATITIS A 2004-05-17 Completed [facility] 00:00:00 [facility] HEPATITIS A 2004-05-17 Completed [facility] 00:00:00 [facility] HEPATITIS A 2004-05-17 Completed [facility] 00:00:00 [facility] HEPATITIS A 2004-05-17 Completed [facility] 00:00:00 [facility] HEPATITIS A 2004-05-17 Completed [facility] 00:00:00 [facility] HEPATITIS A 2004-05-17 Completed [facility] [...] A 2004-05-17 Completed [facility] 00:00:00 [facility] HEPATITIS A 2004-05-17 Completed [facility] 00:00:00 [facility] HEPATITIS A 2004-05-17 Completed [facility] 00:00:00 [facility] HEPATITIS A 2004-05-17 Completed [facility] 00:00:00 [facility] HEPATITIS A 2004-05-17 Completed [facility] 00:00:00 [facility] HEPATITIS A 2004-05-17 Completed [facility] 00:00:00 [facility] HEPATITIS A 2004-05-17 Completed [facility] 00:00:00 [facility] HEPATITIS A 2004-05-17 Completed [facility] 00:00:00 [facility] HEPATITIS A 2004-05-17 Completed [facility] 00:00:00 [facility] HEPATITIS A 2004-05-17 Completed [facility] 00:00:00 [facility] HEPATITIS A 2004-05-17 Completed [facility] 00:00:00 [facility] HEPATITIS A 2004-05-17 Completed [facility] 00:00:00 [facility] HEPATITIS A 2004-05-17 Completed [facility] 00:00:00 [facility] HEPATITIS A 2004-05-17 Completed [facility] [...] A 2004-05-17 Completed [facility] 00:00:00 [facility] HEPATITIS A 2004-05-17 Completed [facility] 00:00:00 [facility] HEPATITIS A 2004-05-17 Completed [facility] 00:00:00 [facility] HEPATITIS A 2004-05-17 Completed [facility] 00:00:00 [facility] HEPATITIS A 2004-05-17 Completed [facility] 00:00:00 [facility] HEPATITIS A 2004-05-17 Completed [facility] 00:00:00 [facility] HEPATITIS A 2004-05-17 Completed [facility] 00:00:00 [facility] HEPATITIS A 2004-05-17 Completed [facility] 00:00:00 [facility] HEPATITIS A 2004-05-17 Completed [facility] 00:00:00 [facility] HEPATITIS A 2004-05-17 Completed [facility] 00:00:00 [facility] HEPATITIS A 2004-05-17 Completed [facility] 00:00:00 [facility] HEPATITIS A 2004-05-17 Completed [facility] 00:00:00 [facility] HEPATITIS A 2004-05-17 Completed [facility] 00:00:00 [facility] HEPATITIS A 2004-05-17 Completed [facility] 00:00:00 [facility] HEPATITIS A 2004-05-17 Completed [facility] 00:00:00 [facility] HEPATITIS A 2004-05-17 Completed [facility] 00:00:00 [facility] HEPATITIS A 2004-05-17 Completed [facility] 00:00:00 [facility] HEPATITIS A 2004-05-17 Completed [facility] 00:00:00 [facility] HEPATITIS A 2004-05-17 Completed [facility] 00:00:00 [facility] HEPATITIS A 2004-05-17 Completed [facility] 00:00:00 [facility] HEPATITIS A 2004-05-17 Completed [facility] 00:00:00 [facility] HEPATITIS A 2004-05-17 Completed [facility] 00:00:00 [facility] HEPATITIS A 2004-05-17 Completed [facility] 00:00:00 [facility] HEPATITIS A 2004-05-17 Completed [facility] 00:00:00 [facility] HEPATITIS A 2004-05-17 Completed [facility] 00:00:00 [facility] HEPATITIS A 2004-05-17 Completed [facility] 00:00:00 [facility] HEPATITIS A 2004-05-17 Completed [facility] 00:00:00 [facility] HEPATITIS A 2004-05-17 Completed [facility] 00:00:00 [facility] HEPATITIS A 2004-05-17 Completed [facility] [...] [facility] Polio (IPV/OPV) 2003-08-21 Completed [facility] 00:00:00 [facility] Polio (IPV/OPV) 2003-08-21 Completed [facility] 00:00:00 [facility] Polio (IPV/OPV) 2003-08-21 Completed [facility] 00:00:00 [facility] Polio (IPV/OPV) 2003-08-21 Completed [facility] 00:00:00 [facility] Polio (IPV/OPV) 2003-08-21 Completed [facility] 00:00:00 [facility] Polio (IPV/OPV) 2003-08-21 Completed [facility] 00:00:00 [facility] Polio (IPV/OPV) 2003-08-21 Completed [facility] [...] [facility] Polio (IPV/OPV) 2003-08-21 Completed [facility] 00:00:00 [facility] Polio (IPV/OPV) 2003-08-21 Completed [facility] 00:00:00 [facility] Polio (IPV/OPV) 2003-08-21 Completed [facility] 00:00:00 [facility] Polio (IPV/OPV) 2003-08-21 Completed [facility] 00:00:00 [facility] Polio (IPV/OPV) 2003-08-21 Completed [facility] 00:00:00 [facility] Polio (IPV/OPV) 2003-08-21 Completed [facility] 00:00:00 [facility] Polio (IPV/OPV) 2003-08-21 Completed [facility] 00:00:00 [facility] Polio (IPV/OPV) 2003-08-21 Completed [facility] 00:00:00 [facility] Polio (IPV/OPV) 2003-08-21 Completed [facility] 00:00:00 [facility] Polio (IPV/OPV) 2003-08-21 Completed [facility] 00:00:00 [facility] Polio (IPV/OPV) 2003-08-21 Completed [facility] 00:00:00 [facility] Polio (IPV/OPV) 2003-08-21 Completed [facility] 00:00:00 [facility] HIB 4 Dose Schedule 2003-05-22 Completed [facility]ive rs[facility] 00[facility]00:00 [facility] MMR 2003-05-22 Completed [facility] 00:00:00 [facility] Pneumococcal 7 2003-05-22 Completed [facility] of Conjugate, PCV7 00:00:00 [place] [facility]ar[facility] Varicella 2003-05-22 Completed [facility] (varivax)(chicken 00:00:00 [place] [facility] pox) [facility] HIB 4 Dose Schedule 2003-05-22 Completed [facility] of 00:00:00 [facility] MMR 2003-05-22 Completed [facility] 00:00:00 [facility] Pneumococcal 7 2003-05-22 Completed [facility] of Conjugate, PCV7 00:00:00 [place] [facility] (Prevnar7) Branch Varicella 2003-05-22 Completed [facility] (varivax)(chicken 00:00:00 [place] [facility] pox) [facility] HIB 4 Dose Schedule 2003-05-22 Completed [facility] 00:00:00 [facility] MMR 2003-05-22 Completed [facility] 00:00:00 [facility] Pneumococcal 7 2003-05-22 Completed [facility] Conjugate, PCV7 00:00:00 [place] [facility] (Prevnar7) Branch Varicella 2003-05-22 Completed [facility] (varivax)(chicken 00:00:00 [place] [facility] pox) [facility] HIB 4 Dose Schedule 2003-05-22 Completed [facility] 00:00:00 [facility] MMR 2003-05-22 Completed [facility] 00:00:00 [facility] Pneumococcal 7 2003-05-22 Completed [facility] Conjugate, PCV7 00:00:00 [place] [facility] (Prevnar7) Branch Varicella 2003-05-22 Completed [facility] (varivax)(chicken 00:00:00 [place] [facility] pox) [facility] HIB 4 Dose Schedule 2003-05-22 Completed [facility] 00:00:00 [facility] MMR 2003-05-22 Completed [facility] 00:00:00 [facility] Pneumococcal 7 2003-05-22 Completed [facility] Conjugate, PCV7 00:00:00 [place] [facility] (Prevnar7) Branch Varicella 2003-05-22 Completed [facility] (varivax)(chicken 00:00:00 [place] [facility] pox) [facility] HIB 4 Dose Schedule 2003-05-22 Completed [facility] 00:00:00 [facility] MMR 2003-05-22 Completed [facility] 00:00:00 [facility] Pneumococcal 7 2003-05-22 Completed [facility] Conjugate, PCV7 00:00:00 [place] [facility] (Prevnar7) Branch Varicella 2003-05-22 Completed [facility] (varivax)(chicken 00:00:00 [place] [facility] pox) Branch HIB 4 Dose Schedule 2003-05-22 Completed [facility] 00:00:00 [facility] MMR 2003-05-22 Completed [facility] 00:00:00 [facility] Pneumococcal 7 2003-05-22 Completed [facility] Conjugate, PCV7 00:00:00 [place] [facility] (Prevnar7) Branch Varicella 2003-05-22 Completed [facility] (varivax)(chicken 00:00:00 [place] [facility] pox) [facility] HIB 4 Dose Schedule 2003-05-22 Completed [facility] 00:00:00 [facility] MMR 2003-05-22 Completed [facility] 00:00:00 [facility] Pneumococcal 7 2003-05-22 Completed [facility] Conjugate, PCV7 00:00:00 [place] [facility] (Prevnar7) Branch Varicella 2003-05-22 Completed [facility] (varivax)(chicken 00:00:00 [place] [facility] pox) Branch HIB 4 Dose Schedule 2003-05-22 Completed [facility] 00:00:00 [facility] MMR 2003-05-22 Completed [facility] 00:00:00 [facility] Pneumococcal 7 2003-05-22 Completed [facility] Conjugate, PCV7 00:00:00 [place] [facility] (Prevnar7) Branch Varicella 2003-05-22 Completed [facility] (varivax)(chicken 00:00:00 [facility] [place] [facility] pox) Branch HIB 4 Dose Schedule 2003-05-22 Completed [facility]ive rsity of 00:00:00 [facility] MMR 2003-05-22 Completed [facility] 00:00:00 [facility] Pneumococcal 7 2003-05-22 Completed [facility] Conjugate, PCV7 00:00:00 [place] [facility] (Prevnar7) Branch Varicella 2003-05-22 Completed [facility] (varivax)(chicken 00:00:00 [facility] [place] [facility] pox) Branch HIB 4 Dose Schedule 2003-05-22 Completed [facility] rs[facility] of 00:00:00 [facility] MMR 2003-05-22 Completed [facility] 00:00:00 [facility] Pneumococcal 7 2003-05-22 Completed [facility] Conjugate, PCV7 00:00:00 [place] [facility] (Prevnar7) Branch Varicella 2003-05-22 Completed [facility] (varivax)(chicken 00:00:00 [place] [facility] pox) Branch HIB 4 Dose Schedule 2003-05-22 Completed [facility] of 00:00:00 [facility] MMR 2003-05-22 Completed [facility] 00:00:00 [facility] Pneumococcal 7 2003-05-22 Completed [facility] Conjugate, PCV7 00:00:00 [place] [facility] (Prevnar7) Branch Varicella 2003-05-22 Completed [facility] (varivax)(chicken 00:00:00 [place] [facility] pox) Branch HIB 4 Dose Schedule 2003-05-22 Completed [facility] of 00:00:00 [facility] MMR 2003-05-22 Completed [facility] of 00:00:00 [facility] Pneumococcal 7 2003-05-22 Completed [facility] Conjugate, PCV7 00:00:00 [place] [facility] (Prevnar7) Branch Varicella 2003-05-22 Completed [facility] (varivax)(chicken 00:00:00 [place] [facility] pox) [facility] HIB 4 Dose Schedule 2003-05-22 Completed [facility]ive rsity of 00:00:00 [facility] MMR 2003-05-22 Completed [facility] 00:00:00 [facility] Pneumococcal 7 2003-05-22 Completed [facility] Conjugate, PCV7 00:00:00 [place] [facility] (Prevnar7) Branch Varicella 2003-05-22 Completed [facility] (varivax)(chicken 00:00:00 [facility] pox) Branch HIB 4 Dose Schedule 2003-05-22 Completed [facility] rs[facility] of 00:00:00 [facility] MMR 2003-05-22 Completed [facility] of 00:00:00 [facility] Pneumococcal 7 2003-05-22 Completed [facility] Conjugate, PCV7 00:00:00 [place] [facility] (Prevnar7) Branch Varicella 2003-05-22 Completed [facility] (varivax)(chicken 00:00:00 [place] [facility] pox) Branch HIB 4 Dose Schedule 2003-05-22 Completed [facility] of 00:00:00 [facility] MMR 2003-05-22 Completed [facility] of 00:00:00 [facility] Pneumococcal 7 2003-05-22 Completed [facility] Conjugate, PCV7 00:00:00 [place] [facility] (Prevnar7) Branch Varicella 2003-05-22 Completed [facility] (varivax)(chicken 00:00:00 [place] [facility] pox) Branch HIB 4 Dose Schedule 2003-05-22 Completed [facility] 00:00:00 [facility] MMR 2003-05-22 Completed [facility] 00:00:00 [facility] Pneumococcal 7 2003-05-22 Completed [facility] Conjugate, PCV7 00:00:00 [place] [facility] (Prevnar7) Branch Varicella 2003-05-22 Completed [facility] (varivax)(chicken 00:00:00 [place] [facility] pox) Branch HIB 4 Dose Schedule 2003-05-22 Completed [facility] of 00:00:00 [facility] MMR 2003-05-22 Completed [facility] 00:00:00 [facility] Pneumococcal 7 2003-05-22 Completed [facility] Conjugate, PCV7 00:00:00 [place] [facility] (Prevnar7) Branch Varicella 2003-05-22 Completed [facility] (varivax)(chicken 00:00:00 [facility] pox) Branch HIB 4 Dose Schedule 2003-05-22 Completed [facility]ive rsity of 00:00:00 [facility] MMR 2003-05-22 Completed [facility] of 00:00:00 [facility] Pneumococcal 7 2003-05-22 Completed [facility] Conjugate, PCV7 00:00:00 [place] [facility] (Prevnar7) Branch Varicella 2003-05-22 Completed [facility] (varivax)(chicken 00:00:00 [facility] [place] [facility] pox) Branch HIB 4 Dose Schedule 2003-05-22 Completed [facility] rs[facility] of 00:00:00 [facility] MMR 2003-05-22 Completed [facility] 00:00:00 [facility] Pneumococcal 7 2003-05-22 Completed [facility] Conjugate, PCV7 00:00:00 [place] [facility] (Prevnar7) Branch Varicella 2003-05-22 Completed [facility] (varivax)(chicken 00:00:00 [facility] [place] [facility] pox) Branch HIB 4 Dose Schedule 2003-05-22 Completed [facility] rs[facility] of 00:00:00 [facility] MMR 2003-05-22 Completed [facility] of 00:00:00 [facility] Pneumococcal 7 2003-05-22 Completed [facility] Conjugate, PCV7 00:00:00 [place] [facility] (Prevnar7) Branch Varicella 2003-05-22 Completed [facility] (varivax)(chicken 00:00:00 [facility] [place] [facility] pox) Branch HIB 4 Dose Schedule 2003-05-22 Completed [facility] of 00:00:00 [facility] MMR 2003-05-22 Completed [facility] 00:00:00 [facility] Pneumococcal 7 2003-05-22 Completed [facility] Conjugate, PCV7 00:00:00 [place] [facility] (Prevnar7) Branch Varicella 2003-05-22 Completed [facility] (varivax)(chicken 00:00:00 [place] [facility] pox) Branch HIB 4 Dose Schedule 2003-05-22 Completed [facility] of 00:00:00 [facility] MMR 2003-05-22 Completed [facility] 00:00:00 [facility] Pneumococcal 7 2003-05-22 Completed [facility] Conjugate, PCV7 00:00:00 [place] [facility] (Prevnar7) Branch Varicella 2003-05-22 Completed [facility] (varivax)(chicken 00:00:00 [place] [facility] pox) Branch HIB 4 Dose Schedule 2003-05-22 Completed [facility] 00:00:00 [facility] MMR 2003-05-22 Completed [facility] 00:00:00 [facility] Pneumococcal 7 2003-05-22 Completed [facility] Conjugate, PCV7 00:00:00 [place] [facility] (Prevnar7) Branch Varicella 2003-05-22 Completed [facility] (varivax)(chicken 00:00:00 [facility] [place] [facility] pox) Branch HIB 4 Dose Schedule 2003-05-22 Completed [facility] 00:00:00 [facility] MMR 2003-05-22 Completed [facility] 00:00:00 [facility] Pneumococcal 7 2003-05-22 Completed [facility] Conjugate, PCV7 00:00:00 [place] [facility] (Prevnar7) Branch Varicella 2003-05-22 Completed [facility] (varivax)(chicken 00:00:00 [facility] [place] [facility] pox) Branch HIB 4 Dose Schedule 2003-05-22 Completed [facility] 00:00:00 [facility] MMR 2003-05-22 Completed [facility] 00:00:00 [facility] Pneumococcal 7 2003-05-22 Completed [facility] Conjugate, PCV7 00:00:00 [place] [facility] (Prevnar7) Branch Varicella 2003-05-22 Completed [facility] (varivax)(chicken 00:00:00 [place] [facility] pox) Branch HIB 4 Dose Schedule 2003-05-22 Completed [facility] of 00:00:00 [facility] MMR 2003-05-22 Completed [facility] 00:00:00 [facility] Pneumococcal 7 2003-05-22 Completed [facility] Conjugate, PCV7 00:00:00 [place] [facility] (Prevnar7) Branch Varicella 2003-05-22 Completed [facility] (varivax)(chicken 00:00:00 [facility] [place] [facility] pox) Branch HIB 4 Dose Schedule 2003-05-22 Completed [facility]ive [facility] of 00:00:00 [facility] MMR 2003-05-22 Completed [facility] 00:00:00 [facility] Pneumococcal 7 2003-05-22 Completed [facility] Conjugate, PCV7 00:00:00 [place] [facility] (Prevnar7) Branch Varicella 2003-05-22 Completed [facility] (varivax)(chicken 00:00:00 [place] [facility] pox) Branch HIB 4 Dose Schedule 2003-05-22 Completed [facility] 00:00:00 [facility] MMR 2003-05-22 Completed [facility] 00:00:00 [facility] Pneumococcal 7 2003-05-22 Completed [facility] Conjugate, PCV7 00:00:00 [place] [facility] (Prevnar7) Branch Varicella 2003-05-22 Completed [facility] (varivax)(chicken 00:00:00 [place] [facility] pox) Branch HIB 4 Dose Schedule 2003-05-22 Completed [facility] of 00:00:00 [facility] MMR 2003-05-22 Completed [facility] 00:00:00 [facility] Pneumococcal 7 2003-05-22 Completed [facility] Conjugate, PCV7 00:00:00 [place] [facility] (Prevnar7) Branch Varicella 2003-05-22 Completed [facility] (varivax)(chicken 00:00:00 [place] [facility] pox) Branch HIB 4 Dose Schedule 2003-05-22 Completed [facility] 00:00:00 [facility] MMR 2003-05-22 Completed [facility] 00:00:00 [facility] Pneumococcal 7 2003-05-22 Completed [facility] Conjugate, PCV7 00:00:00 [place] [facility] (Prevnar7) Branch Varicella 2003-05-22 Completed [facility] (varivax)(chicken 00:00:00 [place] [facility] pox) Branch HIB 4 Dose Schedule 2003-05-22 Completed [facility]ive [facility] of 00:00:00 [facility] MMR 2003-05-22 Completed [facility] of 00:00:00 [facility] Pneumococcal 7 2003-05-22 Completed [facility] Conjugate, PCV7 00:00:00 [place] [facility] (Prevnar7) Branch Varicella 2003-05-22 Completed [facility] (varivax)(chicken 00:00:00 [place] [facility] pox) Branch HIB 4 Dose Schedule 2003-05-22 Completed [facility] of 00:00:00 [facility] MMR 2003-05-22 Completed [facility] 00:00:00 [facility] Pneumococcal 7 2003-05-22 Completed [facility] Conjugate, PCV7 00:00:00 [place] [facility] (Prevnar7) Branch Varicella 2003-05-22 Completed [facility] (varivax)(chicken 00:00:00 [place] [facility] pox) Branch HIB 4 Dose Schedule 2003-05-22 Completed [facility]ive rsity of 00:00:00 [facility] MMR 2003-05-22 Completed [facility] of 00:00:00 [facility] Pneumococcal 7 2003-05-22 Completed [facility] Conjugate, PCV7 00:00:00 [place] [facility] (Prevnar7) Branch Varicella 2003-05-22 Completed [facility] (varivax)(chicken 00:00:00 [place] [facility] pox) Branch HIB 4 Dose Schedule 2003-05-22 Completed [facility] 00:00:00 [facility] MMR 2003-05-22 Completed [facility] 00:00:00 [facility] Pneumococcal 7 2003-05-22 Completed [facility] Conjugate, PCV7 00:00:00 [place] [facility] (Prevnar7) Branch Varicella 2003-05-22 Completed [facility] (varivax)(chicken 00:00:00 [facility] [place] [facility] pox) Branch HIB 4 Dose Schedule 2003-05-22 Completed Unive rsity of 00:00:00 [facility] MMR 2003-05-22 Completed [facility] of 00:00:00 [facility] Pneumococcal 7 2003-05-22 Completed [facility] Conjugate, PCV7 00:00:00 [place] [facility] (Prevnar7) Branch Varicella 2003-05-22 Completed [facility] (varivax)(chicken 00:00:00 [place] [facility] pox) Branch HIB 4 Dose Schedule 2003-05-22 Completed [facility] of 00:00:00 [facility] MMR 2003-05-22 Completed [facility] 00:00:00 [facility] Pneumococcal 7 2003-05-22 Completed [facility] of Conjugate, PCV7 00:00:00 [place] [facility] (Prevnar7) Branch Varicella 2003-05-22 Completed [facility] (varivax)(chicken 00:00:00 [facility] [place] [facility] pox) Branch HIB 4 Dose Schedule 2003-05-22 Completed [facility] rs[facility] of 00:00:00 [facility] MMR 2003-05-22 Completed [facility] 00:00:00 [facility] Pneumococcal 7 2003-05-22 Completed [facility] Conjugate, PCV7 00:00:00 [place] [facility] (Prevnar7) Branch Varicella 2003-05-22 Completed [facility] (varivax)(chicken 00:00:00 [place] [facility] pox) Branch HIB 4 Dose Schedule 2003-05-22 Completed [facility] of 00:00:00 [facility] MMR 2003-05-22 Completed [facility] 00:00:00 [facility] Pneumococcal 7 2003-05-22 Completed [facility] Conjugate, PCV7 00:00:00 [place] [facility] (Prevnar7) Branch Varicella 2003-05-22 Completed [facility] (varivax)(chicken 00:00:00 [place] [facility] pox) Branch HIB 4 Dose Schedule 2003-05-22 Completed [facility] of 00:00:00 [facility] MMR 2003-05-22 Completed [facility] of 00:00:00 [facility] Pneumococcal 7 2003-05-22 Completed [facility] of Conjugate, PCV7 00:00:00 [place] [facility] (Prevnar7) Branch Varicella 2003-05-22 Completed [facility] (varivax)(chicken 00:00:00 [place] [facility] pox) Branch HIB 4 Dose Schedule 2003-05-22 Completed [facility] of 00:00:00 [facility] MMR 2003-05-22 Completed [facility] of 00:00:00 [facility] Pneumococcal 7 2003-05-22 Completed [facility] of Conjugate, PCV7 00:00:00 [place] [facility] (Prevnar7) Branch Varicella 2003-05-22 Completed [facility] (varivax)(chicken 00:00:00 [place] [facility] pox) Branch HIB 4 Dose Schedule 2003-05-22 Completed [facility] of 00:00:00 [facility] MMR 2003-05-22 Completed [facility] of 00:00:00 [facility] Pneumococcal 7 2003-05-22 Completed [facility] of Conjugate, PCV7 00:00:00 [place] [facility] (Prevnar7) Branch Varicella 2003-05-22 Completed [facility] (varivax)(chicken 00:00:00 [place] [facility] pox) Branch HIB 4 Dose Schedule 2003-05-22 Completed [facility] of 00:00:00 [facility] MMR 2003-05-22 Completed [facility] 00:00:00 [facility] Pneumococcal 7 2003-05-22 Completed [facility] of Conjugate, PCV7 00:00:00 [place] [facility] (Prevnar7) Branch Varicella 2003-05-22 Completed [facility] (varivax)(chicken 00:00:00 [place] [facility] pox) Branch HIB 4 Dose Schedule 2003-05-22 Completed [facility]ive rs[facility] of 00:00:00 [facility] MMR 2003-05-22 Completed [facility] of 00:00:00 [facility] Pneumococcal 7 2003-05-22 Completed [facility] of Conjugate, PCV7 00:00:00 [place] [facility] (Prevnar7) Branch Varicella 2003-05-22 Completed [facility] (varivax)(chicken 00:00:00 [place] [facility] pox) Branch HIB 4 Dose Schedule 2003-05-22 Completed [facility]ive rs[facility] of 00:00:00 [facility] MMR 2003-05-22 Completed [facility] of 00:00:00 [facility] Pneumococcal 7 2003-05-22 Completed [facility] of Conjugate, PCV7 00:00:00 [place] [facility] (Prevnar7) Branch Varicella 2003-05-22 Completed [facility] (varivax)(chicken 00:00:00 [facility] [place] ed[facility] pox) Branch HIB 4 Dose Schedule 2003-05-22 Completed Unive rsity of 00:00:00 [facility] MMR 2003-05-22 Completed [facility] of 00:00:00 [facility] Pneumococcal 7 2003-05-22 Completed [facility] of Conjugate, PCV7 00:00:00 [place] [facility] (Prevnar7) Branch Varicella 2003-05-22 Completed [facility] (varivax)(chicken 00:00:00 [facility] [place] [facility] pox) Branch HIB 4 Dose Schedule 2003-05-22 Completed Unive rs[facility] of 00:00:00 [facility] MMR 2003-05-22 Completed [facility] of 00:00:00 [facility] Pneumococcal 7 2003-05-22 Completed [facility] of Conjugate, PCV7 00:00:00 [place] [facility] (Prevnar7) Branch Varicella 2003-05-22 Completed [facility] (varivax)(chicken 00:00:00 [facility] [place] [facility] pox) Branch HIB 4 Dose Schedule 2003-05-22 Completed [facility]ive [facility] of 00:00:00 [facility] MMR 2003-05-22 Completed [facility] 00:00:00 [facility] Pneumococcal 7 2003-05-22 Completed [facility] of Conjugate, PCV7 00:00:00 [place] [facility] (Prevnar7) Branch Varicella 2003-05-22 Completed [facility] (varivax)(chicken 00:00:00 [facility] [place] [facility] pox) Branch HIB 4 Dose Schedule 2003-05-22 Completed [facility] of 00:00:00 [facility] MMR 2003-05-22 Completed [facility] 00:00:00 [facility] Pneumococcal 7 2003-05-22 Completed [facility] Conjugate, PCV7 00:00:00 [place] [facility] (Prevnar7) Branch Varicella 2003-05-22 Completed [facility] (varivax)(chicken 00:00:00 [place] [facility] pox) Branch HIB 4 Dose Schedule 2003-05-22 Completed [facility] rs[facility] of 00:00:00 [facility] MMR 2003-05-22 Completed [facility] 00:00:00 [facility] Pneumococcal 7 2003-05-22 Completed [facility] of Conjugate, PCV7 00:00:00 [place] [facility] (Prevnar7) Branch Varicella 2003-05-22 Completed [facility] (varivax)(chicken 00:00:00 [facility] [place] [facility] pox) Branch HIB 4 Dose Schedule 2003-05-22 Completed [facility] of 00:00:00 [facility] MMR 2003-05-22 Completed [facility] 00:00:00 [facility] Pneumococcal 7 2003-05-22 Completed [facility] of Conjugate, PCV7 00:00:00 [place] [facility] (Prevnar7) Branch Varicella 2003-05-22 Completed [facility] (varivax)(chicken 00:00:00 [facility] [place] [facility] pox) Branch HIB 4 Dose Schedule 2003-05-22 Completed [facility] rs[facility] of 00:00:00 [facility] MMR 2003-05-22 Completed [facility] of 00:00:00 [facility] Pneumococcal 7 2003-05-22 Completed [facility] of Conjugate, PCV7 00:00:00 [place] [facility] (Prevnar7) Branch Varicella 2003-05-22 Completed [facility] (varivax)(chicken 00:00:00 [place] [facility] pox) [facility] HIB 4 Dose Schedule 2003-05-22 Completed [facility] 00:00:00 [facility] MMR 2003-05-22 Completed [facility] 00:00:00 [facility] Pneumococcal 7 2003-05-22 Completed [facility] of Conjugate, PCV7 00:00:00 [place] [facility] (Prevnar7) Branch Varicella 2003-05-22 Completed [facility] (varivax)(chicken 00:00:00 [place] [facility] pox) Branch HIB 4 Dose Schedule 2003-05-22 Completed [facility] 00:00:00 [facility] MMR 2003-05-22 Completed [facility] 00:00:00 [facility] Pneumococcal 7 2003-05-22 Completed [facility] of Conjugate, PCV7 00:00:00 [place] [facility] (Prevnar7) Branch Varicella 2003-05-22 Completed [facility] (varivax)(chicken 00:00:00 [place] [facility] pox) Branch HIB 4 Dose Schedule 2003-05-22 Completed [facility] 00:00:00 [facility] MMR 2003-05-22 Completed [facility] 00:00:00 [facility] Pneumococcal 7 2003-05-22 Completed [facility] of Conjugate, PCV7 00:00:00 [place] [facility] (Prevnar7) Branch Varicella 2003-05-22 Completed [facility] (varivax)(chicken 00:00:00 [facility] [place] [facility] pox) Branch HIB 4 Dose Schedule 2003-05-22 Completed [facility] rs[facility] of 00:00:00 [facility] MMR 2003-05-22 Completed [facility] of 00:00:00 [facility] Pneumococcal 7 2003-05-22 Completed [facility] of Conjugate, PCV7 00:00:00 [place] [facility] (Prevnar7) Branch Varicella 2003-05-22 Completed [facility] (varivax)(chicken 00:00:00 [facility] [place] [facility] pox) Branch HIB 4 Dose Schedule 2003-05-22 Completed [facility]ive rs[facility] of 00:00:00 [facility] MMR 2003-05-22 Completed [facility] 00:00:00 [facility] Pneumococcal 7 2003-05-22 Completed [facility] of Conjugate, PCV7 00:00:00 [place] [facility] (Prevnar7) Branch Varicella 2003-05-22 Completed [facility] (varivax)(chicken 00:00:00 [place] [facility] pox) [facility] HIB 4 Dose Schedule 2003-05-22 Completed [facility] 00:00:00 [facility] MMR 2003-05-22 Completed [facility] 00:00:00 [facility] Pneumococcal 7 2003-05-22 Completed University of Conjugate, PCV7 00:00:00 [place] [facility] (Prevnar7) Branch Varicella 2003-05-22 Completed University of (varivax)(chicken 00:00:00 [facility] edical pox) Branch HIB 4 Dose Schedule 2003-05-22 Completed [facility] 00:00:00 [facility] MMR 2003-05-22 Completed [facility] 00:00:00 [place] [facility] Pneumococcal 7 2003-05-22 Completed University of Conjugate, PCV7 00:00:00 [place] [facility] (Prevnar7) Branch Varicella 2003-05-22 Completed [facility] of (varivax)(chicken 00:00:00 [place] [facility] pox) [facility] HIB 4 Dose Schedule 2003-05-22 Completed [facility] 00:00:00 [facility] MMR 2003-05-22 Completed [facility] 00:00:00 [facility] Pneumococcal 7 2003-05-22 Completed [facility] of Conjugate, PCV7 00:00:00 [place] [facility] (Prevnar7) [facility] Varicella 2003-05-22 Completed [facility] of (varivax)(chicken 00:00:00 [place] [facility] pox) [facility] HIB 4 Dose Schedule 2003-05-22 Completed [facility] 00:00:00 [facility] MMR 2003-05-22 Completed [facility] of 00:00:00 [facility] Pneumococcal 7 2003-05-22 Completed [facility] of Conjugate, PCV7 00:00:00 [place] [facility] (Prevnar7) Branch Varicella 2003-05-22 Completed [facility] (varivax)(chicken 00:00:00 [place] [facility] pox) [facility] HIB 4 Dose Schedule 2003-05-22 Completed [facility] 00:00:00 [facility] MMR 2003-05-22 Completed [facility] of 00:00:00 [facility] Pneumococcal 7 2003-05-22 Completed [facility] of Conjugate, PCV7 00:00:00 [place] [facility] (Prevnar7) [facility] Varicella 2003-05-22 Completed [facility] (varivax)(chicken 00:00:00 [place] [facility] pox) [facility] HIB 4 Dose Schedule 2003-05-22 Completed [facility] 00:00:00 [facility] MMR 2003-05-22 Completed [facility] of 00:00:00 [facility] Pneumococcal 7 2003-05-22 Completed [facility] of Conjugate, PCV7 00:00:00 [place] [facility] (Prevnar7) Branch Varicella 2003-05-22 Completed [facility] (varivax)(chicken 00:00:00 [place] [facility] pox) [facility] HIB 4 Dose Schedule 2003-05-22 Completed [facility] 00:00:00 [facility] MMR 2003-05-22 Completed [facility] of 00:00:00 [facility] Pneumococcal 7 2003-05-22 Completed [facility] of Conjugate, PCV7 00:00:00 [place] [facility] (Prevnar7) [facility] Varicella 2003-05-22 Completed [facility] (varivax)(chicken 00:00:00 [place] [facility] pox) [facility] HIB 4 Dose Schedule 2003-05-22 Completed [facility] 00:00:00 [facility] MMR 2003-05-22 Completed [facility] of 00:00:00 [facility] Pneumococcal 7 2003-05-22 Completed [facility] of Conjugate, PCV7 00:00:00 [place] [facility] (Prevnar7) Branch Varicella 2003-05-22 Completed [facility] of (varivax)(chicken 00:00:00 [facility] ed[facility] pox) Branch HIB 4 Dose Schedule 2003-05-22 Completed [facility] 00:00:00 [facility] MMR 2003-05-22 Completed [facility] of 00:00:00 [facility] Pneumococcal 7 2003-05-22 Completed [facility] of Conjugate, PCV7 00:00:00 [place] [facility] (Prevnar7) [facility] Varicella 2003-05-22 Completed [facility] of (varivax)(chicken 00:00:00 [facility] pox) Branch HIB 4 Dose Schedule 2003-05-22 Completed [facility] 00:00:00 [facility] MMR 2003-05-22 Completed [facility] of 00:00:00 [facility] Pneumococcal 7 2003-05-22 Completed [facility] of Conjugate, PCV7 00:00:00 [place] [facility] (Prevnar7) Branch Varicella 2003-05-22 Completed [facility] (varivax)(chicken 00:00:00 [place] [facility] pox) [facility] HIB 4 Dose Schedule 2003-05-22 Completed [facility] 00:00:00 [facility] MMR 2003-05-22 Completed [facility] of 00:00:00 [facility] Pneumococcal 7 2003-05-22 Completed [facility] of Conjugate, PCV7 00:00:00 [place] [facility] (Prevnar7) Branch Varicella 2003-05-22 Completed [facility] (varivax)(chicken 00:00:00 [place] [facility] pox) [facility] HIB 4 Dose Schedule 2003-05-22 Completed [facility] 00:00:00 [facility] MMR 2003-05-22 Completed [facility] of 00:00:00 [facility] Pneumococcal 7 2003-05-22 Completed [facility] of Conjugate, PCV7 00:00:00 [place] [facility] (Prevnar7) Branch Varicella 2003-05-22 Completed [facility] (varivax)(chicken 00:00:00 [place] [facility] pox) [facility] HIB 4 Dose Schedule 2003-05-22 Completed [facility] 00:00:00 [facility] MMR 2003-05-22 Completed [facility] of 00:00:00 [facility] Pneumococcal 7 2003-05-22 Completed [facility] of Conjugate, PCV7 00:00:00 [place] [facility] (Prevnar7) Branch Varicella 2003-05-22 Completed [facility] (varivax)(chicken 00:00:00 [place] [facility] pox) [facility] HIB 4 Dose Schedule 2003-05-22 Completed [facility] 00:00:00 [facility] MMR 2003-05-22 Completed [facility] of 00:00:00 [facility] Pneumococcal 7 2003-05-22 Completed [facility] of Conjugate, PCV7 00:00:00 [place] [facility] (Prevnar7) Branch Varicella 2003-05-22 Completed [facility] (varivax)(chicken 00:00:00 [place] [facility] pox) [facility] HIB 4 Dose Schedule 2003-05-22 Completed [facility] 00:00:00 [facility] MMR 2003-05-22 Completed [facility] of 00:00:00 [facility] Pneumococcal 7 2003-05-22 Completed [facility] of Conjugate, PCV7 00:00:00 [place] [facility] (Prevnar7) Branch Varicella 2003-05-22 Completed [facility] (varivax)(chicken 00:00:00 [place] [facility] pox) [facility] HIB 4 Dose Schedule 2003-05-22 Completed [facility] 00:00:00 [facility] MMR 2003-05-22 Completed [facility] of 00:00:00 [facility] Pneumococcal 7 2003-05-22 Completed [facility] of Conjugate, PCV7 00:00:00 [place] [facility] (Prevnar7) Branch Varicella 2003-05-22 Completed [facility] (varivax)(chicken 00:00:00 [place] [facility] pox) [facility] HIB 4 Dose Schedule 2003-05-22 Completed [facility] 00:00:00 [facility] MMR 2003-05-22 Completed [facility] 00:00:00 [facility] Pneumococcal 7 2003-05-22 Completed [facility] of Conjugate, PCV7 00:00:00 [place] [facility] (Prevnar7) Branch Varicella 2003-05-22 Completed [facility] (varivax)(chicken 00:00:00 [place] [facility] pox) [facility] HIB 4 Dose Schedule 2003-05-22 Completed [facility] 00:00:00 [facility] MMR 2003-05-22 Completed [facility] of 00:00:00 [facility] Pneumococcal 7 2003-05-22 Completed [facility] of Conjugate, PCV7 00:00:00 [place] [facility] (Prevnar7) Branch Varicella 2003-05-22 Completed [facility] (varivax)(chicken 00:00:00 [facility] pox) Branch HIB 4 Dose Schedule 2003-05-22 Completed [facility] 00:00:00 [facility] MMR 2003-05-22 Completed [facility] of 00:00:00 [facility] Pneumococcal 7 2003-05-22 Completed [facility] of Conjugate, PCV7 00:00:00 [place] [facility] (Prevnar7) Branch Varicella 2003-05-22 Completed [facility] (varivax)(chicken 00:00:00 [facility] pox) Branch HIB 4 Dose Schedule 2003-05-22 Completed [facility] 00:00:00 [facility] MMR 2003-05-22 Completed [facility] of 00:00:00 [facility] Pneumococcal 7 2003-05-22 Completed [facility] of Conjugate, PCV7 00:00:00 [place] [facility] (Prevnar7) Branch Varicella 2003-05-22 Completed [facility] of (varivax)(chicken 00:00:00 [facility] pox) Branch DTAP 2003-01-01 Completed [facility] 00:00:00 [facility] HIB 4 Dose Schedule 2003-01-01 Completed [facility] 00:00:00 [facility] Hep B, Adol or Pedi 2003-01-01 Completed [facility]ive [facility] of Dosage 00:00:00 [facility] Pneumococcal 7 2003-01-01 Completed University of Conjugate, PCV7 00:00:00 [place] [facility] (Prevnar7) Branch DTAP 2003-01-01 Completed [facility] 00:00:00 [facility] HIB 4 Dose Schedule 2003-01-01 Completed [facility] 00:00:00 [facility] Hep B, Adol or Pedi 2003-01-01 Completed [facility]ive [facility] of Dosage 00:00:00 [facility] Pneumococcal 7 2003-01-01 Completed University of Conjugate, PCV7 00:00:00 [place] [facility] (Prevnar7) Branch DTAP 2003-01-01 Completed [facility] 00:00:00 [facility] HIB 4 Dose Schedule 2003-01-01 Completed [facility] 00:00:00 [facility] Hep B, Adol or Pedi 2003-01-01 Completed [facility] of Dosage 00:00:00 [facility] Pneumococcal 7 2003-01-01 Completed University of Conjugate, PCV7 00:00:00 [place] [facility] (Prevnar7) Branch DTAP 2003-01-01 Completed [facility] 00:00:00 [facility] HIB 4 Dose Schedule 2003-01-01 Completed [facility] 00:00:00 [facility] Hep B, Adol or Pedi 2003-01-01 Completed [facility] of Dosage 00:00:00 [facility] Pneumococcal 7 2003-01-01 Completed [facility] of Conjugate, PCV7 00:00:00 [place] [facility] (Prevnar7) Branch DTAP 2003-01-01 Completed [facility] 00:00:00 [facility] HIB 4 Dose Schedule 2003-01-01 Completed [facility] 00:00:00 [facility] Hep B, Adol or Pedi 2003-01-01 Completed [facility] of Dosage 00:00:00 [facility] Pneumococcal 7 2003-01-01 Completed [facility] of Conjugate, PCV7 00:00:00 [place] [facility] (Prevnar7) Branch DTAP 2003-01-01 Completed [facility] 00:00:00 [facility] HIB 4 Dose Schedule 2003-01-01 Completed [facility] 00:00:00 [facility] Hep B, Adol or Pedi 2003-01-01 Completed [facility] of Dosage 00:00:00 [facility] Pneumococcal 7 2003-01-01 Completed University of Conjugate, PCV7 00:00:00 [place] [facility] (Prevnar7) Branch DTAP 2003-01-01 Completed [facility] 00:00:00 [facility] HIB 4 Dose Schedule 2003-01-01 Completed [facility] 00:00:00 [facility] Hep B, Adol or Pedi 2003-01-01 Completed [facility] of Dosage 00:00:00 [facility] Pneumococcal 7 2003-01-01 Completed University of Conjugate, PCV7 00:00:00 [place] [facility] (Prevnar7) Branch DTAP 2003-01-01 Completed [facility] 00:00:00 [facility] HIB 4 Dose Schedule 2003-01-01 Completed [facility] 00:00:00 [facility] Hep B, Adol or Pedi 2003-01-01 Completed [facility] of Dosage 00:00:00 [facility] Pneumococcal 7 2003-01-01 Completed [facility] of Conjugate, PCV7 00:00:00 [place] [facility] (Prevnar7) Branch DTAP 2003-01-01 Completed [facility] 00:00:00 [facility] HIB 4 Dose Schedule 2003-01-01 Completed [facility] 00:00:00 [facility] Hep B, Adol or Pedi 2003-01-01 Completed [facility] of Dosage 00:00:00 [facility] Pneumococcal 7 2003-01-01 Completed University of Conjugate, PCV7 00:00:00 [place] [facility] (Prevnar7) Branch DTAP 2003-01-01 Completed [facility] 00:00:00 [facility] HIB 4 Dose Schedule 2003-01-01 Completed [facility] 00:00:00 [facility] Hep B, Adol or Pedi 2003-01-01 Completed [facility]ive [facility] of Dosage 00:00:00 [facility] Pneumococcal 7 2003-01-01 Completed University of Conjugate, PCV7 00:00:00 [place] [facility] (Prevnar7) Branch DTAP 2003-01-01 Completed [facility] 00:00:00 [facility] HIB 4 Dose Schedule 2003-01-01 Completed [facility] 00:00:00 [facility] Hep B, Adol or Pedi 2003-01-01 Completed [facility] of Dosage 00:00:00 [facility] Pneumococcal 7 2003-01-01 Completed [facility] Conjugate, PCV7 00:00:00 [place] [facility] (Prevnar7) Branch DTAP 2003-01-01 Completed [facility] 00:00:00 [facility] HIB 4 Dose Schedule 2003-01-01 Completed [facility] 00:00:00 [facility] Hep B, Adol or Pedi 2003-01-01 Completed [facility] of Dosage 00:00:00 [facility] Pneumococcal 7 2003-01-01 Completed [facility] of Conjugate, PCV7 00:00:00 [place] [facility] (Prevnar7) Branch DTAP 2003-01-01 Completed [facility] 00:00:00 [facility] HIB 4 Dose Schedule 2003-01-01 Completed [facility] 00:00:00 [facility] Hep B, Adol or Pedi 2003-01-01 Completed [facility] of Dosage 00:00:00 [facility] Pneumococcal 7 2003-01-01 Completed [facility] of Conjugate, PCV7 00:00:00 [place] [facility] (Prevnar7) Branch DTAP 2003-01-01 Completed [facility] 00:00:00 [facility] HIB 4 Dose Schedule 2003-01-01 Completed [facility] of 00:00:00 [facility] Hep B, Adol or Pedi 2003-01-01 Completed [facility] of Dosage 00:00:00 [facility] Pneumococcal 7 2003-01-01 Completed [facility] of Conjugate, PCV7 00:00:00 [place] [facility] (Prevnar7) Branch DTAP 2003-01-01 Completed [facility] 00:00:00 [facility] HIB 4 Dose Schedule 2003-01-01 Completed [facility] 00:00:00 [facility] Hep B, Adol or Pedi 2003-01-01 Completed [facility] of Dosage 00:00:00 [facility] Pneumococcal 7 2003-01-01 Completed [facility] of Conjugate, PCV7 00:00:00 [place] [facility] (Prevnar7) Branch DTAP 2003-01-01 Completed [facility] 00:00:00 [facility] HIB 4 Dose Schedule 2003-01-01 Completed [facility] 00:00:00 [facility] Hep B, Adol or Pedi 2003-01-01 Completed [facility] of Dosage 00:00:00 [facility] Pneumococcal 7 2003-01-01 Completed [facility] of Conjugate, PCV7 00:00:00 [place] [facility] (Prevnar7) Branch DTAP 2003-01-01 Completed [facility] 00:00:00 [facility] HIB 4 Dose Schedule 2003-01-01 Completed [facility] 00:00:00 [facility] Hep B, Adol or Pedi 2003-01-01 Completed [facility] of Dosage 00:00:00 [facility] Pneumococcal 7 2003-01-01 Completed [facility] of Conjugate, PCV7 00:00:00 [place] [facility] (Prevnar7) Branch DTAP 2003-01-01 Completed [facility] 00:00:00 [facility] HIB 4 Dose Schedule 2003-01-01 Completed [facility] of 00:00:00 [facility] Hep B, Adol or Pedi 2003-01-01 Completed [facility]ive [facility] of Dosage 00:00:00 [facility] Pneumococcal 7 2003-01-01 Completed University of Conjugate, PCV7 00:00:00 [place] [facility] (Prevnar7) Branch DTAP 2003-01-01 Completed [facility] 00:00:00 [facility] HIB 4 Dose Schedule 2003-01-01 Completed [facility] 00:00:00 [facility] Hep B, Adol or Pedi 2003-01-01 Completed [facility] of Dosage 00:00:00 [facility] Pneumococcal 7 2003-01-01 Completed [facility] of Conjugate, PCV7 00:00:00 [place] [facility] (Prevnar7) Branch DTAP 2003-01-01 Completed [facility] 00:00:00 [facility] HIB 4 Dose Schedule 2003-01-01 Completed [facility] 00:00:00 [facility] Hep B, Adol or Pedi 2003-01-01 Completed [facility] of Dosage 00:00:00 [facility] Pneumococcal 7 2003-01-01 Completed [facility] of Conjugate, PCV7 00:00:00 [place] [facility] (Prevnar7) Branch DTAP 2003-01-01 Completed [facility] 00:00:00 [facility] HIB 4 Dose Schedule 2003-01-01 Completed [facility] 00:00:00 [facility] Hep B, Adol or Pedi 2003-01-01 Completed [facility] of Dosage 00:00:00 [facility] Pneumococcal 7 2003-01-01 Completed [facility] of Conjugate, PCV7 00:00:00 [place] [facility] (Prevnar7) Branch DTAP 2003-01-01 Completed [facility] 00:00:00 [facility] HIB 4 Dose Schedule 2003-01-01 Completed [facility] 00:00:00 [facility] Hep B, Adol or Pedi 2003-01-01 Completed [facility] of Dosage 00:00:00 [facility] Pneumococcal 7 2003-01-01 Completed [facility] of Conjugate, PCV7 00:00:00 [place] [facility] (Prevnar7) Branch DTAP 2003-01-01 Completed [facility] 00:00:00 [facility] HIB 4 Dose Schedule 2003-01-01 Completed [facility] 00:00:00 [place] [facility] Hep B, Adol or Pedi 2003-01-01 Completed [facility]ive [facility] of Dosage 00:00:00 [facility] Pneumococcal 7 2003-01-01 Completed [facility] of Conjugate, PCV7 00:00:00 [place] [facility] (Prevnar7) Branch DTAP 2003-01-01 Completed [facility] 00:00:00 [facility] HIB 4 Dose Schedule 2003-01-01 Completed [facility] of 00:00:00 [facility] Hep B, Adol or Pedi 2003-01-01 Completed [facility] of Dosage 00:00:00 [facility] Pneumococcal 7 2003-01-01 Completed [facility] of Conjugate, PCV7 00:00:00 [place] [facility] (Prevnar7) Branch DTAP 2003-01-01 Completed [facility] 00:00:00 [facility] HIB 4 Dose Schedule 2003-01-01 Completed [facility] of 00:00:00 [facility] Hep B, Adol or Pedi 2003-01-01 Completed [facility] of Dosage 00:00:00 [facility] Pneumococcal 7 2003-01-01 Completed [facility] of Conjugate, PCV7 00:00:00 [place] [facility] (Prevnar7) Branch DTAP 2003-01-01 Completed [facility] 00:00:00 [facility] HIB 4 Dose Schedule 2003-01-01 Completed [facility] of 00:00:00 [facility] Hep B, Adol or Pedi 2003-01-01 Completed [facility] of Dosage 00:00:00 [facility] Pneumococcal 7 2003-01-01 Completed [facility] of Conjugate, PCV7 00:00:00 [place] [facility] (Prevnar7) Branch DTAP 2003-01-01 Completed [facility] 00:00:00 [facility] HIB 4 Dose Schedule 2003-01-01 Completed [facility] of 00:00:00 [facility] Hep B, Adol or Pedi 2003-01-01 Completed [facility] of Dosage 00:00:00 [facility] Pneumococcal 7 2003-01-01 Completed [facility] of Conjugate, PCV7 00:00:00 [place] [facility] (Prevnar7) Branch DTAP 2003-01-01 Completed [facility] 00:00:00 [facility] HIB 4 Dose Schedule 2003-01-01 Completed [facility] of 00:00:00 [facility] Hep B, Adol or Pedi 2003-01-01 Completed [facility] of Dosage 00:00:00 [facility] Pneumococcal 7 2003-01-01 Completed [facility] of Conjugate, PCV7 00:00:00 [place] [facility] (Prevnar7) Branch DTAP 2003-01-01 Completed [facility] 00:00:00 [facility] HIB 4 Dose Schedule 2003-01-01 Completed [facility] 00:00:00 [facility] Hep B, Adol or Pedi 2003-01-01 Completed [facility] of Dosage 00:00:00 [facility] Pneumococcal 7 2003-01-01 Completed [facility] of Conjugate, PCV7 00:00:00 [place] [facility] (Prevnar7) Branch DTAP 2003-01-01 Completed [facility] 00:00:00 [facility] HIB 4 Dose Schedule 2003-01-01 Completed [facility] 00:00:00 [facility] Hep B, Adol or Pedi 2003-01-01 Completed [facility] of Dosage 00:00:00 [facility] Pneumococcal 7 2003-01-01 Completed [facility] of Conjugate, PCV7 00:00:00 [place] [facility] (Prevnar7) Branch DTAP 2003-01-01 Completed [facility] 00:00:00 [facility] HIB 4 Dose Schedule 2003-01-01 Completed [facility] of 00:00:00 [facility] Hep B, Adol or Pedi 2003-01-01 Completed [facility] of Dosage 00:00:00 [facility] Pneumococcal 7 2003-01-01 Completed [facility] of Conjugate, PCV7 00:00:00 [place] [facility] (Prevnar7) Branch DTAP 2003-01-01 Completed [facility] 00:00:00 [facility] HIB 4 Dose Schedule 2003-01-01 Completed [facility] of 00:00:00 [facility] Hep B, Adol or Pedi 2003-01-01 Completed [facility] of Dosage 00:00:00 [facility] Pneumococcal 7 2003-01-01 Completed [facility] of Conjugate, PCV7 00:00:00 [place] [facility] (Prevnar7) Branch DTAP 2003-01-01 Completed [facility] 00:00:00 [facility] HIB 4 Dose Schedule 2003-01-01 Completed [facility] of 00:00:00 [facility] Hep B, Adol or Pedi 2003-01-01 Completed [facility] of Dosage 00:00:00 [facility] Pneumococcal 7 2003-01-01 Completed [facility] Conjugate, PCV7 00:00:00 [place] [facility] (Prevnar7) Branch DTAP 2003-01-01 Completed [facility] 00:00:00 [facility] HIB 4 Dose Schedule 2003-01-01 Completed [facility] of 00:00:00 [facility] Hep B, Adol or Pedi 2003-01-01 Completed [facility] of Dosage 00:00:00 [facility] Pneumococcal 7 2003-01-01 Completed [facility] of Conjugate, PCV7 00:00:00 [place] [facility] (Prevnar7) Branch DTAP 2003-01-01 Completed [facility] 00:00:00 [facility] HIB 4 Dose Schedule 2003-01-01 Completed [facility] of 00:00:00 [facility] Hep B, Adol or Pedi 2003-01-01 Completed [facility] of Dosage 00:00:00 [facility] Pneumococcal 7 2003-01-01 Completed [facility] Conjugate, PCV7 00:00:00 [place] [facility] ical (Prevnar7) Branch DTAP 2003-01-01 Completed [facility] 00:00:00 [facility] HIB 4 Dose Schedule 2003-01-01 Completed [facility] of 00:00:00 [facility] Hep B, Adol or Pedi 2003-01-01 Completed [facility] Dosage 00:00:00 [facility] Pneumococcal 7 2003-01-01 Completed University of Conjugate, PCV7 00:00:00 [place] [facility] (Prevnar7) Branch DTAP 2003-01-01 Completed [facility] 00:00:00 [facility] HIB 4 Dose Schedule 2003-01-01 Completed [facility] of 00:00:00 [facility] Hep B, Adol or Pedi 2003-01-01 Completed [facility] of Dosage 00:00:00 [facility] Pneumococcal 7 2003-01-01 Completed [facility] of Conjugate, PCV7 00:00:00 [place] [facility] (Prevnar7) Branch DTAP 2003-01-01 Completed [facility] 00:00:00 [facility] HIB 4 Dose Schedule 2003-01-01 Completed [facility] of 00:00:00 [facility] Hep B, Adol or Pedi 2003-01-01 Completed [facility] of Dosage 00:00:00 [facility] Pneumococcal 7 2003-01-01 Completed [facility] of Conjugate, PCV7 00:00:00 [place] [facility] (Prevnar7) Branch DTAP 2003-01-01 Completed [facility] 00:00:00 [facility] HIB 4 Dose Schedule 2003-01-01 Completed [facility] of 00:00:00 [facility] Hep B, Adol or Pedi 2003-01-01 Completed [facility] Dosage 00:00:00 [facility] Pneumococcal 7 2003-01-01 Completed [facility] of Conjugate, PCV7 00:00:00 [place] [facility] (Prevnar7) Branch DTAP 2003-01-01 Completed [facility] 00:00:00 [facility] HIB 4 Dose Schedule 2003-01-01 Completed [facility] of 00:00:00 [facility] Hep B, Adol or Pedi 2003-01-01 Completed [facility] of Dosage 00:00:00 [facility] Pneumococcal 7 2003-01-01 Completed [facility] of Conjugate, PCV7 00:00:00 [place] [facility] (Prevnar7) Branch DTAP 2003-01-01 Completed [facility] 00:00:00 [facility] HIB 4 Dose Schedule 2003-01-01 Completed [facility] of 00:00:00 [facility] Hep B, Adol or Pedi 2003-01-01 Completed [facility] of Dosage 00:00:00 [facility] Pneumococcal 7 2003-01-01 Completed [facility] of Conjugate, PCV7 00:00:00 [place] [facility] (Prevnar7) Branch DTAP 2003-01-01 Completed [facility] 00:00:00 [facility] HIB 4 Dose Schedule 2003-01-01 Completed [facility] of 00:00:00 [facility] Hep B, Adol or Pedi 2003-01-01 Completed [facility] of Dosage 00:00:00 [facility] Pneumococcal 7 2003-01-01 Completed [facility] of Conjugate, PCV7 00:00:00 [place] [facility] (Prevnar7) Branch DTAP 2003-01-01 Completed [facility] 00:00:00 [facility] HIB 4 Dose Schedule 2003-01-01 Completed [facility] 00:00:00 [facility] Hep B, Adol or Pedi 2003-01-01 Completed [facility] of Dosage 00:00:00 [facility] Pneumococcal 7 2003-01-01 Completed [facility] of Conjugate, PCV7 00:00:00 [place] [facility] (Prevnar7) Branch DTAP 2003-01-01 Completed [facility] 00:00:00 [facility] HIB 4 Dose Schedule 2003-01-01 Completed [facility] of 00:00:00 [facility] Hep B, Adol or Pedi 2003-01-01 Completed [facility] of Dosage 00:00:00 [facility] Pneumococcal 7 2003-01-01 Completed [facility] of Conjugate, PCV7 00:00:00 [place] [facility] (Prevnar7) Branch DTAP 2003-01-01 Completed [facility] 00:00:00 [facility] HIB 4 Dose Schedule 2003-01-01 Completed [facility] of 00:00:00 [facility] Hep B, Adol or Pedi 2003-01-01 Completed [facility] of Dosage 00:00:00 [facility] Pneumococcal 7 2003-01-01 Completed [facility] of Conjugate, PCV7 00:00:00 [place] [facility] (Prevnar7) Branch DTAP 2003-01-01 Completed [facility] 00:00:00 [facility] HIB 4 Dose Schedule 2003-01-01 Completed [facility] of 00:00:00 [facility] Hep B, Adol or Pedi 2003-01-01 Completed [facility] of Dosage 00:00:00 [facility] Pneumococcal 7 2003-01-01 Completed [facility] of Conjugate, PCV7 00:00:00 [place] [facility] (Prevnar7) Branch DTAP 2003-01-01 Completed [facility] 00:00:00 [facility] HIB 4 Dose Schedule 2003-01-01 Completed [facility] of 00:00:00 [facility] Hep B, Adol or Pedi 2003-01-01 Completed [facility] of Dosage 00:00:00 [facility] Pneumococcal 7 2003-01-01 Completed [facility] of Conjugate, PCV7 00:00:00 [place] [facility] (Prevnar7) Branch DTAP 2003-01-01 Completed [facility] 00:00:00 [facility] HIB 4 Dose Schedule 2003-01-01 Completed [facility] of 00:00:00 [facility] Hep B, Adol or Pedi 2003-01-01 Completed [facility] of Dosage 00:00:00 [facility] Pneumococcal 7 2003-01-01 Completed [facility] of Conjugate, PCV7 00:00:00 [place] [facility] (Prevnar7) Branch DTAP 2003-01-01 Completed [facility] 00:00:00 [facility] HIB 4 Dose Schedule 2003-01-01 Completed [facility] of 00:00:00 [facility] Hep B, Adol or Pedi 2003-01-01 Completed [facility] of Dosage 00:00:00 [facility] Pneumococcal 7 2003-01-01 Completed [facility] of Conjugate, PCV7 00:00:00 [place] [facility] (Prevnar7) Branch DTAP 2003-01-01 Completed [facility] 00:00:00 [facility] HIB 4 Dose Schedule 2003-01-01 Completed [facility] 00:00:00 [facility] Hep B, Adol or Pedi 2003-01-01 Completed [facility] of Dosage 00:00:00 [facility] Pneumococcal 7 2003-01-01 Completed [facility] of Conjugate, PCV7 00:00:00 [place] [facility] (Prevnar7) Branch DTAP 2003-01-01 Completed [facility] 00:00:00 [facility] HIB 4 Dose Schedule 2003-01-01 Completed [facility] of 00:00:00 [facility] Hep B, Adol or Pedi 2003-01-01 Completed [facility] of Dosage 00:00:00 [facility] Pneumococcal 7 2003-01-01 Completed [facility] of Conjugate, PCV7 00:00:00 [place] [facility] (Prevnar7) Branch DTAP 2003-01-01 Completed [facility] 00:00:00 [facility] HIB 4 Dose Schedule 2003-01-01 Completed [facility] of 00:00:00 [facility] Hep B, Adol or Pedi 2003-01-01 Completed [facility] of Dosage 00:00:00 [facility] Pneumococcal 7 2003-01-01 Completed [facility] of Conjugate, PCV7 00:00:00 [place] [facility] (Prevnar7) Branch DTAP 2003-01-01 Completed [facility] 00:00:00 [facility] HIB 4 Dose Schedule 2003-01-01 Completed [facility] of 00:00:00 [facility] Hep B, Adol or Pedi 2003-01-01 Completed [facility] of Dosage 00:00:00 [facility] Pneumococcal 7 2003-01-01 Completed [facility] of Conjugate, PCV7 00:00:00 [place] [facility] (Prevnar7) Branch DTAP 2003-01-01 Completed [facility] 00:00:00 [facility] HIB 4 Dose Schedule 2003-01-01 Completed [facility] of 00:00:00 [facility] Hep B, Adol or Pedi 2003-01-01 Completed [facility] of Dosage 00:00:00 [facility] Pneumococcal 7 2003-01-01 Completed [facility] of Conjugate, PCV7 00:00:00 [place] [facility] (Prevnar7) Branch DTAP 2003-01-01 Completed [facility] 00:00:00 [facility] HIB 4 Dose Schedule 2003-01-01 Completed [facility] of 00:00:00 [facility] Hep B, Adol or Pedi 2003-01-01 Completed [facility] of Dosage 00:00:00 [facility] Pneumococcal 7 2003-01-01 Completed [facility] of Conjugate, PCV7 00:00:00 [place] [facility] (Prevnar7) Branch DTAP 2003-01-01 Completed [facility] 00:00:00 [facility] HIB 4 Dose Schedule 2003-01-01 Completed [facility] of 00:00:00 [facility] Hep B, Adol or Pedi 2003-01-01 Completed [facility] of Dosage 00:00:00 [facility] Pneumococcal 7 2003-01-01 Completed [facility] of Conjugate, PCV7 00:00:00 [place] [facility] (Prevnar7) Branch DTAP 2003-01-01 Completed [facility] 00:00:00 [facility] HIB 4 Dose Schedule 2003-01-01 Completed [facility] of 00:00:00 [facility] Hep B, Adol or Pedi 2003-01-01 Completed [facility] of Dosage 00:00:00 [facility] Pneumococcal 7 2003-01-01 Completed [facility] Conjugate, PCV7 00:00:00 [place] [facility] (Prevnar7) Branch DTAP 2003-01-01 Completed [facility] 00:00:00 [facility] HIB 4 Dose Schedule 2003-01-01 Completed [facility] 00:00:00 [facility] Hep B, Adol or Pedi 2003-01-01 Completed [facility] of Dosage 00:00:00 [facility] Pneumococcal 7 2003-01-01 Completed [facility] Conjugate, PCV7 00:00:00 [place] [facility] (Prevnar7) Branch DTAP 2003-01-01 Completed [facility] 00:00:00 [facility] HIB 4 Dose Schedule 2003-01-01 Completed [facility] 00:00:00 [facility] Hep B, Adol or Pedi 2003-01-01 Completed [facility] of Dosage 00:00:00 [facility] Pneumococcal 7 2003-01-01 Completed [facility] Conjugate, PCV7 00:00:00 [place] [facility] (Prevnar7) Branch DTAP 2003-01-01 Completed [facility] 00:00:00 [facility] HIB 4 Dose Schedule 2003-01-01 Completed [facility] 00:00:00 [facility] Hep B, Adol or Pedi 2003-01-01 Completed [facility] of Dosage 00:00:00 [facility] Pneumococcal 7 2003-01-01 Completed [facility] of Conjugate, PCV7 00:00:00 [place] [facility] (Prevnar7) Branch DTAP 2003-01-01 Completed [facility] 00:00:00 [facility] HIB 4 Dose Schedule 2003-01-01 Completed [facility] of 00:00:00 [facility] Hep B, Adol or Pedi 2003-01-01 Completed [facility] of Dosage 00:00:00 [facility] Pneumococcal 7 2003-01-01 Completed [facility] of Conjugate, PCV7 00:00:00 [place] [facility] (Prevnar7) Branch DTAP 2003-01-01 Completed [facility] 00:00:00 [facility] HIB 4 Dose Schedule 2003-01-01 Completed [facility] 00:00:00 [facility] Hep B, Adol or Pedi 2003-01-01 Completed [facility] of Dosage 00:00:00 [facility] Pneumococcal 7 2003-01-01 Completed [facility] Conjugate, PCV7 00:00:00 [place] [facility] (Prevnar7) Branch DTAP 2003-01-01 Completed [facility] 00:00:00 [facility] HIB 4 Dose Schedule 2003-01-01 Completed [facility] of 00:00:00 [facility] Hep B, Adol or Pedi 2003-01-01 Completed [facility] of Dosage 00:00:00 [facility] Pneumococcal 7 2003-01-01 Completed [facility] Conjugate, PCV7 00:00:00 [place] [facility] (Prevnar7) Branch DTAP 2003-01-01 Completed [facility] 00:00:00 [facility] HIB 4 Dose Schedule 2003-01-01 Completed [facility] 00:00:00 [facility] Hep B, Adol or Pedi 2003-01-01 Completed [facility] of Dosage 00:00:00 [facility] Pneumococcal 7 2003-01-01 Completed [facility] of Conjugate, PCV7 00:00:00 [place] [facility] (Prevnar7) Branch DTAP 2003-01-01 Completed [facility] 00:00:00 [facility] HIB 4 Dose Schedule 2003-01-01 Completed [facility] 00:00:00 [facility] Hep B, Adol or Pedi 2003-01-01 Completed [facility] of Dosage 00:00:00 [facility] Pneumococcal 7 2003-01-01 Completed [facility] Conjugate, PCV7 00:00:00 [place] [facility] (Prevnar7) Branch DTAP 2003-01-01 Completed [facility] 00:00:00 [facility] HIB 4 Dose Schedule 2003-01-01 Completed [facility] of 00:00:00 [facility] Hep B, Adol or Pedi 2003-01-01 Completed [facility] of Dosage 00:00:00 [facility] Pneumococcal 7 2003-01-01 Completed [facility] Conjugate, PCV7 00:00:00 [place] [facility] (Prevnar7) Branch DTAP 2003-01-01 Completed [facility] 00:00:00 [facility] HIB 4 Dose Schedule 2003-01-01 Completed [facility] 00:00:00 [facility] Hep B, Adol or Pedi 2003-01-01 Completed [facility] of Dosage 00:00:00 [facility] Pneumococcal 7 2003-01-01 Completed [facility] Conjugate, PCV7 00:00:00 [place] [facility] (Prevnar7) Branch DTAP 2003-01-01 Completed [facility] 00:00:00 [facility] HIB 4 Dose Schedule 2003-01-01 Completed [facility] 00:00:00 [facility] Hep B, Adol or Pedi 2003-01-01 Completed [facility] of Dosage 00:00:00 [facility] Pneumococcal 7 2003-01-01 Completed [facility] Conjugate, PCV7 00:00:00 [place] [facility] (Prevnar7) Branch DTAP 2003-01-01 Completed [facility] 00:00:00 [facility] HIB 4 Dose Schedule 2003-01-01 Completed [facility] 00:00:00 [facility] Hep B, Adol or Pedi 2003-01-01 Completed [facility] of Dosage 00:00:00 [facility] Pneumococcal 7 2003-01-01 Completed [facility] of Conjugate, PCV7 00:00:00 [place] [facility] (Prevnar7) Branch DTAP 2003-01-01 Completed [facility] 00:00:00 [facility] HIB 4 Dose Schedule 2003-01-01 Completed [facility] 00:00:00 [facility] Hep B, Adol or Pedi 2003-01-01 Completed [facility] of Dosage 00:00:00 [facility] Pneumococcal 7 2003-01-01 Completed [facility] of Conjugate, PCV7 00:00:00 [place] [facility] (Prevnar7) Branch DTAP 2003-01-01 Completed [facility] 00:00:00 [facility] HIB 4 Dose Schedule 2003-01-01 Completed [facility] 00:00:00 [facility] Hep B, Adol or Pedi 2003-01-01 Completed [facility] of Dosage 00:00:00 [facility] Pneumococcal 7 2003-01-01 Completed [facility] of Conjugate, PCV7 00:00:00 [place] [facility] (Prevnar7) Branch DTAP 2003-01-01 Completed [facility] 00:00:00 [facility] HIB 4 Dose Schedule 2003-01-01 Completed [facility] of 00:00:00 [facility] Hep B, Adol or Pedi 2003-01-01 Completed [facility] of Dosage 00:00:00 [facility] Pneumococcal 7 2003-01-01 Completed [facility] Conjugate, PCV7 00:00:00 [place] [facility] (Prevnar7) Branch DTAP 2003-01-01 Completed [facility] 00:00:00 [facility] HIB 4 Dose Schedule 2003-01-01 Completed [facility] 00:00:00 [facility] Hep B, Adol or Pedi 2003-01-01 Completed [facility] of Dosage 00:00:00 [facility] Pneumococcal 7 2003-01-01 Completed [facility] of Conjugate, PCV7 00:00:00 [place] [facility] (Prevnar7) Branch DTAP 2003-01-01 Completed [facility] 00:00:00 [facility] HIB 4 Dose Schedule 2003-01-01 Completed [facility] of 00:00:00 [facility] Hep B, Adol or Pedi 2003-01-01 Completed [facility] of Dosage 00:00:00 [facility] Pneumococcal 7 2003-01-01 Completed [facility] Conjugate, PCV7 00:00:00 [place] [facility] (Prevnar7) Branch DTAP 2003-01-01 Completed [facility] 00:00:00 [facility] HIB 4 Dose Schedule 2003-01-01 Completed [facility] 00:00:00 [facility] Hep B, Adol or Pedi 2003-01-01 Completed [facility] of Dosage 00:00:00 [facility] Pneumococcal 7 2003-01-01 Completed [facility] of Conjugate, PCV7 00:00:00 [place] [facility] (Prevnar7) Branch DTAP 2003-01-01 Completed [facility] 00:00:00 [facility] HIB 4 Dose Schedule 2003-01-01 Completed [facility] 00:00:00 [facility] Hep B, Adol or Pedi 2003-01-01 Completed [facility] of Dosage 00:00:00 [facility] Pneumococcal 7 2003-01-01 Completed [facility] Conjugate, PCV7 00:00:00 [place] [facility] (Prevnar7) Branch DTAP 2003-01-01 Completed [facility] 00:00:00 [facility] HIB 4 Dose Schedule 2003-01-01 Completed [facility] 00:00:00 [facility] Hep B, Adol or Pedi 2003-01-01 Completed [facility] of Dosage 00:00:00 [facility] Pneumococcal 7 2003-01-01 Completed [facility] of Conjugate, PCV7 00:00:00 [place] [facility] (Prevnar7) Branch DTAP 2002 Completed [facility] 00:00:00 [facility] HIB 4 Dose Schedule 2002 Completed [facility] 00:00:00 [facility] Pneumococcal 7 2002 Completed [facility] Conjugate, PCV7 00:00:00 [place] [facility] (Prevnar7) Branch Polio (IPV/OPV) 2002 Completed [facility] 00:00:00 [facility] DTAP 2002 Completed [facility] 00:00:00 [facility] HIB 4 Dose Schedule 2002 Completed [facility] 00:00:00 [facility] Pneumococcal 7 2002 Completed [facility] Conjugate, PCV7 00:00:00 [place] [facility] (Prevnar7) Branch Polio (IPV/OPV) 2002 Completed [facility] 00:00:00 [facility] DTAP 2002 Completed [facility] 00:00:00 [facility] HIB 4 Dose Schedule 2002 Completed [facility] 00:00:00 [facility] Pneumococcal 7 2002 Completed [facility] of Conjugate, PCV7 00:00:00 [place] [facility] (Prevnar7) Branch Polio (IPV/OPV) 2002 Completed [facility] 00:00:00 [facility] DTAP 2002 Completed [facility] 00:00:00 [facility] HIB 4 Dose Schedule 2002 Completed [facility] 00:00:00 [facility] Pneumococcal 7 2002 Completed [facility] Conjugate, PCV7 00:00:00 [place] [facility] (Prevnar7) Branch Polio (IPV/OPV) 2002 Completed [facility] 00:00:00 [facility] DTAP 2002 Completed [facility] 00:00:00 [facility] HIB 4 Dose Schedule 2002 Completed [facility] 00:00:00 [facility] Pneumococcal 7 2002 Completed [facility] Conjugate, PCV7 00:00:00 [place] [facility] (Prevnar7) Branch Polio (IPV/OPV) 2002 Completed [facility] 00:00:00 [facility] DTAP 2002 Completed [facility] 00:00:00 [facility] HIB 4 Dose Schedule 2002 Completed [facility] 00:00:00 [facility] Pneumococcal 7 2002 Completed [facility] Conjugate, PCV7 00:00:00 [place] [facility] (Prevnar7) Branch Polio (IPV/OPV) 2002 Completed [facility] 00:00:00 [facility] DTAP 2002 Completed [facility] 00:00:00 [facility] HIB 4 Dose Schedule 2002 Completed [facility] 00:00:00 [facility] Pneumococcal 7 2002 Completed [facility] Conjugate, PCV7 00:00:00 [place] [facility] (Prevnar7) Branch Polio (IPV/OPV) 2002 Completed [facility] 00:00:00 [facility] DTAP 2002 Completed [facility] 00:00:00 [facility] HIB 4 Dose Schedule 2002 Completed [facility] 00:00:00 [facility] Pneumococcal 7 2002 Completed [facility] Conjugate, PCV7 00:00:00 [place] [facility] (Prevnar7) Branch Polio (IPV/OPV) 2002 Completed [facility] 00:00:00 [facility] DTAP 2002 Completed [facility] 00:00:00 [facility] HIB 4 Dose Schedule 2002 Completed [facility] 00:00:00 [facility] Pneumococcal 7 2002 Completed [facility] Conjugate, PCV7 00:00:00 [place] [facility] (Prevnar7) Branch Polio (IPV/OPV) 2002 Completed [facility] 00:00:00 [facility] DTAP 2002 Completed [facility] 00:00:00 [facility] HIB 4 Dose Schedule 2002 Completed [facility] 00:00:00 [facility] Pneumococcal 7 2002 Completed [facility] Conjugate, PCV7 00:00:00 [place] [facility] (Prevnar7) Branch Polio (IPV/OPV) 2002 Completed [facility] 00:00:00 [facility] DTAP 2002 Completed [facility] 00:00:00 [facility] HIB 4 Dose Schedule 2002 Completed [facility] 00:00:00 [facility] Pneumococcal 7 2002 Completed [facility] Conjugate, PCV7 00:00:00 [place] [facility] (Prevnar7) Branch Polio (IPV/OPV) 2002 Completed [facility] 00:00:00 [facility] DTAP 2002 Completed [facility] 00:00:00 [facility] HIB 4 Dose Schedule 2002 Completed [facility] 00:00:00 [facility] Pneumococcal 7 2002 Completed [facility] Conjugate, PCV7 00:00:00 [place] [facility] (Prevnar7) Branch Polio (IPV/OPV) 2002 Completed [facility] 00:00:00 [facility] DTAP 2002 Completed [facility] 00:00:00 [facility] HIB 4 Dose Schedule 2002 Completed [facility] 00:00:00 [facility] Pneumococcal 7 2002 Completed [facility] Conjugate, PCV7 00:00:00 [place] [facility] (Prevnar7) Branch Polio (IPV/OPV) 2002 Completed [facility] 00:00:00 [facility] DTAP 2002 Completed [facility] [facility] HIB 4 Dose Schedule 2002 Completed [facility] 00:00:00 [facility] Pneumococcal 7 2002 Completed [facility] of Conjugate, PCV7 00:00:00 [place] [facility] (Prevnar7) Branch Polio (IPV/OPV) 2002 Completed [facility] 00:00:00 [facility] DTAP 2002 Completed [facility] 00[facility]00:00 [facility] HIB 4 Dose Schedule 2002 Completed [facility] 00[facility]00:00 [facility] Pneumococcal 7 2002 Completed [facility] of Conjugate, PCV7 00:00:00 [place] [facility] (Prevnar7) Branch Polio (IPV/OPV) 2002 Completed [facility] 00:00:00 [facility] DTAP 2002 Completed [facility] 00:00:00 [facility] HIB 4 Dose Schedule 2002 Completed [facility] 00:00:00 [facility] Pneumococcal 7 2002 Completed [facility] Conjugate, PCV7 00:00:00 [place] [facility] (Prevnar7) Branch Polio (IPV/OPV) 2002 Completed [facility] 00:00:00 [facility] DTAP 2002 Completed [facility] 00:00:00 [facility] HIB 4 Dose Schedule 2002 Completed [facility] 00:00:00 [facility] Pneumococcal 7 2002 Completed [facility] Conjugate, PCV7 00:00:00 [place] [facility] (Prevnar7) Branch Polio (IPV/OPV) 2002 Completed [facility] 00:00:00 [facility] DTAP 2002 Completed [facility] 00:00:00 [facility] HIB 4 Dose Schedule 2002 Completed [facility] 00:00:00 [facility] Pneumococcal 7 2002 Completed [facility] Conjugate, PCV7 00:00:00 [place] [facility] (Prevnar7) Branch Polio (IPV/OPV) 2002 Completed [facility] 00:00:00 [facility] DTAP 2002 Completed [facility] 00:00:00 [facility] HIB 4 Dose Schedule 2002 Completed [facility] 00:00:00 [facility] Pneumococcal 7 2002 Completed [facility] Conjugate, PCV7 00:00:00 [place] [facility] (Prevnar7) Branch Polio (IPV/OPV) 2002 Completed [facility] 00:00:00 [facility] DTAP 2002 Completed [facility] 00:00:00 [facility] HIB 4 Dose Schedule 2002 Completed [facility] 00:00:00 [facility] Pneumococcal 7 2002 Completed [facility] Conjugate, PCV7 00:00:00 [place] [facility] (Prevnar7) Branch Polio (IPV/OPV) 2002 Completed [facility] 00:00:00 [facility] DTAP 2002 Completed [facility] 00:00:00 [facility] HIB 4 Dose Schedule 2002 Completed [facility] 00:00:00 [facility] Pneumococcal 7 2002 Completed [facility] Conjugate, PCV7 00:00:00 [place] [facility] (Prevnar7) Branch Polio (IPV/OPV) 2002 Completed [facility] 00:00:00 [facility] DTAP 2002 Completed [facility] 00:00:00 [facility] HIB 4 Dose Schedule 2002 Completed [facility] 00:00:00 [facility] Pneumococcal 7 2002 Completed [facility] Conjugate, PCV7 00:00:00 [place] [facility] (Prevnar7) Branch Polio (IPV/OPV) 2002 Completed [facility] 00:00:00 [facility] DTAP 2002 Completed [facility] 00:00:00 [facility] HIB 4 Dose Schedule 2002 Completed [facility] 00:00:00 [facility] Pneumococcal 7 2002 Completed [facility] Conjugate, PCV7 00:00:00 [place] [facility] (Prevnar7) Branch Polio (IPV/OPV) 2002 Completed [facility] 00:00:00 [facility] DTAP 2002 Completed [facility] 00:00:00 [facility] HIB 4 Dose Schedule 2002 Completed [facility] 00:00:00 [facility] Pneumococcal 7 2002 Completed [facility] Conjugate, PCV7 00:00:00 [place] [facility] (Prevnar7) Branch Polio (IPV/OPV) 2002 Completed [facility] 00:00:00 [facility] DTAP 2002 Completed [facility] 00:00:00 [facility] HIB 4 Dose Schedule 2002 Completed [facility] 00:00:00 [facility] Pneumococcal 7 2002 Completed [facility] Conjugate, PCV7 00:00:00 [place] [facility] (Prevnar7) Branch Polio (IPV/OPV) 2002 Completed [facility] 00:00:00 [facility] DTAP 2002 Completed [facility] 00:00:00 [facility] HIB 4 Dose Schedule 2002 Completed [facility] 00:00:00 [facility] Pneumococcal 7 2002 Completed [facility] Conjugate, PCV7 00:00:00 [place] [facility] (Prevnar7) Branch Polio (IPV/OPV) 2002 Completed [facility] 00:00:00 [facility] DTAP 2002 Completed [facility] 00:00:00 [facility] HIB 4 Dose Schedule 2002 Completed [facility] 00:00:00 [facility] Pneumococcal 7 2002 Completed [facility] Conjugate, PCV7 00:00:00 [place] [facility] (Prevnar7) Branch Polio (IPV/OPV) 2002 Completed [facility] 00:00:00 [facility] DTAP 2002 Completed [facility] 00:00:00 [facility] HIB 4 Dose Schedule 2002 Completed [facility] 00:00:00 [facility] Pneumococcal 7 2002 Completed [facility] Conjugate, PCV7 00:00:00 [place] [facility] (Prevnar7) Branch Polio (IPV/OPV) 2002 Completed [facility] 00:00:00 [facility] DTAP 2002 Completed [facility] 00:00:00 [facility] HIB 4 Dose Schedule 2002 Completed [facility] 00:00:00 [facility] Pneumococcal 7 2002 Completed [facility] Conjugate, PCV7 00:00:00 [place] [facility] (Prevnar7) Branch Polio (IPV/OPV) 2002 Completed [facility] 00:00:00 [facility] DTAP 2002 Completed [facility] 00:00:00 [facility] HIB 4 Dose Schedule 2002 Completed [facility] 00:00:00 [facility] Pneumococcal 7 2002 Completed [facility] Conjugate, PCV7 00:00:00 [place] [facility] (Prevnar7) Branch Polio (IPV/OPV) 2002 Completed [facility] 00:00:00 [facility] DTAP 2002 Completed [facility] 00:00:00 [facility] HIB 4 Dose Schedule 2002 Completed [facility] 00:00:00 [facility] Pneumococcal 7 2002 Completed [facility] Conjugate, PCV7 00:00:00 [place] [facility] (Prevnar7) Branch Polio (IPV/OPV) 2002 Completed [facility] 00:00:00 [facility] DTAP 2002 Completed [facility] 00:00:00 [facility] HIB 4 Dose Schedule 2002 Completed [facility] 00:00:00 [facility] Pneumococcal 7 2002 Completed [facility] Conjugate, PCV7 00:00:00 [place] [facility] (Prevnar7) Branch Polio (IPV/OPV) 2002 Completed [facility] 00:00:00 [facility] DTAP 2002 Completed [facility] 00:00:00 [facility] HIB 4 Dose Schedule 2002 Completed [facility] 00:00:00 [facility] Pneumococcal 7 2002 Completed [facility] Conjugate, PCV7 00:00:00 [place] [facility] (Prevnar7) Branch Polio (IPV/OPV) 2002 Completed [facility] 00:00:00 [facility] DTAP 2002 Completed [facility] 00:00:00 [facility] HIB 4 Dose Schedule 2002 Completed [facility] 00:00:00 [facility] Pneumococcal 7 2002 Completed [facility] Conjugate, PCV7 00:00:00 [place] [facility] (Prevnar7) Branch Polio (IPV/OPV) 2002 Completed [facility] 00:00:00 [facility] DTAP 2002 Completed [facility] 00:00:00 [facility] HIB 4 Dose Schedule 2002 Completed [facility] 00:00:00 [facility] Pneumococcal 7 2002 Completed [facility] Conjugate, PCV7 00:00:00 [place] [facility] (Prevnar7) Branch Polio (IPV/OPV) 2002 Completed [facility] 00:00:00 [facility] DTAP 2002 Completed [facility] 00:00:00 [facility] HIB 4 Dose Schedule 2002 Completed [facility] 00:00:00 [facility] Pneumococcal 7 2002 Completed [facility] Conjugate, PCV7 00:00:00 [place] [facility] (Prevnar7) Branch Polio (IPV/OPV) 2002 Completed [facility] 00:00:00 [facility] DTAP 2002 Completed [facility] 00:00:00 [facility] HIB 4 Dose Schedule 2002 Completed [facility] 00:00:00 [facility] Pneumococcal 7 2002 Completed [facility] Conjugate, PCV7 00:00:00 [place] [facility] (Prevnar7) Branch Polio (IPV/OPV) 2002 Completed [facility] 00:00:00 [facility] DTAP 2002 Completed [facility] 00:00:00 [facility] HIB 4 Dose Schedule 2002 Completed [facility] 00:00:00 [facility] Pneumococcal 7 2002 Completed [facility] Conjugate, PCV7 00:00:00 [place] [facility] (Prevnar7) Branch Polio (IPV/OPV) 2002 Completed [facility] 00:00:00 [facility] DTAP 2002 Completed [facility] 00:00:00 [facility] HIB 4 Dose Schedule 2002 Completed [facility] 00:00:00 [facility] Pneumococcal 7 2002 Completed [facility] Conjugate, PCV7 00:00:00 [place] [facility] (Prevnar7) Branch Polio (IPV/OPV) 2002 Completed [facility] 00:00:00 [facility] DTAP 2002 Completed [facility] 00:00:00 [facility] HIB 4 Dose Schedule 2002 Completed [facility] 00:00:00 [facility] Pneumococcal 7 2002 Completed [facility] Conjugate, PCV7 00:00:00 [place] [facility] (Prevnar7) Branch Polio (IPV/OPV) 2002 Completed [facility] 00:00:00 [facility] DTAP 2002 Completed [facility] 00:00:00 [facility] HIB 4 Dose Schedule 2002 Completed [facility] 00:00:00 [facility] Pneumococcal 7 2002 Completed [facility] Conjugate, PCV7 00:00:00 [place] [facility] (Prevnar7) Branch Polio (IPV/OPV) 2002 Completed [facility] 00:00:00 [facility] DTAP 2002 Completed [facility] 00:00:00 [facility] HIB 4 Dose Schedule 2002 Completed [facility] 00:00:00 [facility] Pneumococcal 7 2002 Completed [facility] Conjugate, PCV7 00:00:00 [place] [facility] (Prevnar7) Branch Polio (IPV/OPV) 2002 Completed [facility] 00:00:00 [facility] DTAP 2002 Completed [facility] 00:00:00 [facility] HIB 4 Dose Schedule 2002 Completed [facility] 00:00:00 [facility] Pneumococcal 7 2002 Completed [facility] Conjugate, PCV7 00:00:00 [place] [facility] (Prevnar7) Branch Polio (IPV/OPV) 2002 Completed [facility] 00:00:00 [facility] DTAP 2002 Completed [facility] 00:00:00 [facility] HIB 4 Dose Schedule 2002 Completed [facility] 00:00:00 [facility] Pneumococcal 7 2002 Completed [facility] Conjugate, PCV7 00:00:00 [place] [facility] (Prevnar7) Branch Polio (IPV/OPV) 2002 Completed [facility] 00:00:00 [facility] DTAP 2002 Completed [facility] 00:00:00 [facility] HIB 4 Dose Schedule 2002 Completed [facility] 00:00:00 [facility] Pneumococcal 7 2002 Completed [facility] Conjugate, PCV7 00:00:00 [place] [facility] (Prevnar7) Branch Polio (IPV/OPV) 2002 Completed [facility] 00:00:00 [facility] DTAP 2002 Completed [facility] 00:00:00 [facility] HIB 4 Dose Schedule 2002 Completed [facility] 00:00:00 [facility] Pneumococcal 7 2002 Completed [facility] Conjugate, PCV7 00:00:00 [place] [facility] (Prevnar7) Branch Polio (IPV/OPV) 2002 Completed [facility] 00:00:00 [facility] DTAP 2002 Completed [facility] 00:00:00 [facility] HIB 4 Dose Schedule 2002 Completed [facility] 00:00:00 [facility] Pneumococcal 7 2002 Completed [facility] Conjugate, PCV7 00:00:00 [place] [facility] (Prevnar7) Branch Polio (IPV/OPV) 2002 Completed [facility] 00:00:00 [facility] DTAP 2002 Completed [facility] 00:00:00 [facility] HIB 4 Dose Schedule 2002 Completed [facility] 00:00:00 [facility] Pneumococcal 7 2002 Completed [facility] Conjugate, PCV7 00:00:00 [place] [facility] (Prevnar7) Branch Polio (IPV/OPV) 2002 Completed [facility] 00:00:00 [facility] DTAP 2002 Completed [facility] 00:00:00 [facility] HIB 4 Dose Schedule 2002 Completed [facility] 00:00:00 [facility] Pneumococcal 7 2002 Completed [facility] Conjugate, PCV7 00:00:00 [place] [facility] (Prevnar7) Branch Polio (IPV/OPV) 2002 Completed [facility] 00:00:00 [facility] DTAP 2002 Completed [facility] 00:00:00 [facility] HIB 4 Dose Schedule 2002 Completed [facility] 00:00:00 [facility] Pneumococcal 7 2002 Completed [facility] Conjugate, PCV7 00:00:00 [place] [facility] (Prevnar7) Branch Polio (IPV/OPV) 2002 Completed [facility] 00:00:00 [facility] DTAP 2002 Completed [facility] 00:00:00 [facility] HIB 4 Dose Schedule 2002 Completed [facility] 00:00:00 [facility] Pneumococcal 7 2002 Completed [facility] Conjugate, PCV7 00:00:00 [place] [facility] (Prevnar7) Branch Polio (IPV/OPV) 2002 Completed [facility] 00:00:00 [facility] DTAP 2002 Completed [facility] 00:00:00 [facility] HIB 4 Dose Schedule 2002 Completed [facility] 00:00:00 [facility] Pneumococcal 7 2002 Completed [facility] Conjugate, PCV7 00:00:00 [place] [facility] (Prevnar7) Branch Polio (IPV/OPV) 2002 Completed [facility] 00:00:00 [facility] DTAP 2002 Completed [facility] 00:00:00 [facility] HIB 4 Dose Schedule 2002 Completed [facility] 00:00:00 [facility] Pneumococcal 7 2002 Completed [facility] Conjugate, PCV7 00:00:00 [place] [facility] (Prevnar7) Branch Polio (IPV/OPV) 2002 Completed [facility] 00:00:00 [facility] DTAP 2002 Completed [facility] 00:00:00 [facility] HIB 4 Dose Schedule 2002 Completed [facility] 00:00:00 [facility] Pneumococcal 7 2002 Completed [facility] Conjugate, PCV7 00:00:00 [place] [facility] (Prevnar7) Branch Polio (IPV/OPV) 2002 Completed [facility] 00:00:00 [facility] DTAP 2002 Completed [facility] 00:00:00 [facility] HIB 4 Dose Schedule 2002 Completed [facility] 00:00:00 [facility] Pneumococcal 7 2002 Completed [facility] Conjugate, PCV7 00:00:00 [place] [facility] (Prevnar7) Branch Polio (IPV/OPV) 2002 Completed [facility] 00:00:00 [facility] DTAP 2002 Completed [facility] 00:00:00 [facility] HIB 4 Dose Schedule 2002 Completed [facility] 00:00:00 [facility] Pneumococcal 7 2002 Completed [facility] Conjugate, PCV7 00:00:00 [place] [facility] (Prevnar7) Branch Polio (IPV/OPV) 2002 Completed [facility] 00:00:00 [facility] DTAP 2002 Completed [facility] 00:00:00 [facility] HIB 4 Dose Schedule 2002 Completed [facility] 00:00:00 [facility] Pneumococcal 7 2002 Completed [facility] Conjugate, PCV7 00:00:00 [place] [facility] (Prevnar7) Branch Polio (IPV/OPV) 2002 Completed [facility] 00:00:00 [facility] DTAP 2002 Completed [facility] 00:00:00 [facility] HIB 4 Dose Schedule 2002 Completed [facility] 00:00:00 [facility] Pneumococcal 7 2002 Completed [facility] Conjugate, PCV7 00:00:00 [place] [facility] (Prevnar7) Branch Polio (IPV/OPV) 2002 Completed [facility] 00:00:00 [facility] DTAP 2002 Completed [facility] 00:00:00 [facility] HIB 4 Dose Schedule 2002 Completed [facility] 00:00:00 [facility] Pneumococcal 7 2002 Completed [facility] Conjugate, PCV7 00:00:00 [place] [facility] (Prevnar7) Branch Polio (IPV/OPV) 2002 Completed [facility] 00:00:00 [facility] DTAP 2002 Completed [facility] 00:00:00 [facility] HIB 4 Dose Schedule 2002 Completed [facility] 00:00:00 [facility] Pneumococcal 7 2002 Completed [facility] Conjugate, PCV7 00:00:00 [place] [facility] (Prevnar7) Branch Polio (IPV/OPV) 2002 Completed [facility] 00:00:00 [facility] DTAP 2002 Completed [facility] 00:00:00 [facility] HIB 4 Dose Schedule 2002 Completed [facility] 00:00:00 [facility] Pneumococcal 7 2002 Completed [facility] Conjugate, PCV7 00:00:00 [place] [facility] (Prevnar7) Branch Polio (IPV/OPV) 2002 Completed [facility] 00:00:00 [facility] DTAP 2002 Completed [facility] 00:00:00 [facility] HIB 4 Dose Schedule 2002 Completed [facility] 00:00:00 [facility] Pneumococcal 7 2002 Completed [facility] Conjugate, PCV7 00:00:00 [place] [facility] (Prevnar7) Branch Polio (IPV/OPV) 2002 Completed [facility] 00:00:00 [facility] DTAP 2002 Completed [facility] 00:00:00 [facility] HIB 4 Dose Schedule 2002 Completed [facility] 00:00:00 [facility] Pneumococcal 7 2002 Completed [facility] Conjugate, PCV7 00:00:00 [place] [facility] (Prevnar7) Branch Polio (IPV/OPV) 2002 Completed [facility] 00:00:00 [facility] DTAP 2002 Completed [facility] 00:00:00 [facility] HIB 4 Dose Schedule 2002 Completed [facility] 00:00:00 [facility] Pneumococcal 7 2002 Completed [facility] Conjugate, PCV7 00:00:00 [place] [facility] (Prevnar7) Branch Polio (IPV/OPV) 2002 Completed [facility] 00:00:00 [facility] DTAP 2002 Completed [facility] 00:00:00 [facility] HIB 4 Dose Schedule 2002 Completed [facility] 00:00:00 [facility] Pneumococcal 7 2002 Completed [facility] Conjugate, PCV7 00:00:00 [place] [facility] (Prevnar7) Branch Polio (IPV/OPV) 2002 Completed [facility] 00:00:00 [facility] DTAP 2002 Completed [facility] 00:00:00 [facility] HIB 4 Dose Schedule 2002 Completed [facility] 00:00:00 [facility] Pneumococcal 7 2002 Completed [facility] Conjugate, PCV7 00:00:00 [place] [facility] (Prevnar7) Branch Polio (IPV/OPV) 2002 Completed [facility] 00:00:00 [facility] DTAP 2002 Completed [facility] 00:00:00 [facility] HIB 4 Dose Schedule 2002 Completed [facility] 00:00:00 [facility] Pneumococcal 7 2002 Completed [facility] Conjugate, PCV7 00:00:00 [place] [facility] (Prevnar7) Branch Polio (IPV/OPV) 2002 Completed [facility] 00:00:00 [facility] DTAP 2002 Completed [facility] 00:00:00 [facility] HIB 4 Dose Schedule 2002 Completed [facility] 00:00:00 [facility] Pneumococcal 7 2002 Completed [facility] Conjugate, PCV7 00:00:00 [place] [facility] (Prevnar7) Branch Polio (IPV/OPV) 2002 Completed [facility] 00:00:00 [facility] DTAP 2002 Completed [facility] 00:00:00 [facility] HIB 4 Dose Schedule 2002 Completed [facility] 00:00:00 [facility] Pneumococcal 7 2002 Completed [facility] Conjugate, PCV7 00:00:00 [place] [facility] (Prevnar7) Branch Polio (IPV/OPV) 2002 Completed [facility] 00:00:00 [facility] DTAP 2002 Completed [facility] 00:00:00 [facility] HIB 4 Dose Schedule 2002 Completed [facility] 00:00:00 [facility] Pneumococcal 7 2002 Completed [facility] Conjugate, PCV7 00:00:00 [place] [facility] (Prevnar7) Branch Polio (IPV/OPV) 2002 Completed [facility] 00:00:00 [facility] DTAP 2002 Completed [facility] 00:00:00 [facility] HIB 4 Dose Schedule 2002 Completed [facility] 00:00:00 [facility] Pneumococcal 7 2002 Completed [facility] Conjugate, PCV7 00:00:00 [place] [facility] (Prevnar7) Branch Polio (IPV/OPV) 2002 Completed [facility] 00:00:00 [facility] DTAP 2002 Completed [facility] 00:00:00 [facility] HIB 4 Dose Schedule 2002 Completed [facility] 00:00:00 [facility] Pneumococcal 7 2002 Completed [facility] Conjugate, PCV7 00:00:00 [place] [facility] (Prevnar7) Branch Polio (IPV/OPV) 2002 Completed [facility] [facility] DTAP 2002 Completed [facility] 00:00:00 [facility] HIB 4 Dose Schedule 2002 Completed [facility] 00[facility]00:00 [facility] Pneumococcal 7 2002 Completed [facility] Conjugate, PCV7 00:00:00 [place] [facility] (Prevnar7) [facility] Polio (IPV/OPV) 2002 Completed [facility] 00:00:00 [facility] DTAP 2002 Completed [facility] 00:00:00 [facility] HIB 4 Dose Schedule 2002 Completed [facility] 00:00:00 [facility] Pneumococcal 7 2002 Completed [facility] Conjugate, PCV7 00:00:00 [place] [facility] (Prevnar7) [facility] Polio (IPV/OPV) 2002 Completed [facility] 00:00:00 [facility] DTAP 2002 Completed [facility] 00:00:00 [facility] HIB 4 Dose Schedule 2002 Completed [facility] 00:00:00 [facility] Pneumococcal 7 2002 Completed [facility] Conjugate, PCV7 00:00:00 [place] [facility] (Prevnar7) [facility] Polio (IPV/OPV) 2002 Completed [facility] 00:00:00 [facility] DTAP 2002 Completed [facility] 00:00:00 [facility] HIB 4 Dose Schedule 2002 Completed [facility] 00:00:00 [facility] Pneumococcal 7 2002 Completed [facility] Conjugate, PCV7 00:00:00 [place] [facility] (Prevnar7) [facility] Polio (IPV/OPV) 2002 Completed [facility] 00:00:00 [facility] DTAP 2002 Completed [facility] 00:00:00 [facility] HIB 4 Dose Schedule 2002 Completed [facility] 00:00:00 [facility] Pneumococcal 7 2002 Completed [facility] Conjugate, PCV7 00:00:00 [place] [facility] (Prevnar7) [facility] Polio (IPV/OPV) 2002 Completed [facility] 00:00:00 [facility] DTAP 2002 Completed [facility] 00:00:00 [facility] HIB 4 Dose Schedule 2002 Completed [facility] 00:00:00 [facility] Hep B, Adol or Pedi 2002 Completed [facility] Dosage 00:00:00 [facility] Polio (IPV/OPV) 2002 Completed [facility] 00:00:00 [facility] DTAP 2002 Completed [facility] 00:00:00 [facility] HIB 4 Dose Schedule 2002 Completed [facility] 00:00:00 [facility] Hep B, Adol or Pedi 2002 Completed [facility] Dosage 00:00:00 [facility] Polio (IPV/OPV) 2002 Completed [facility] 00:00:00 [facility] DTAP 2002 Completed [facility] 00:00:00 [facility] HIB 4 Dose Schedule 2002 Completed [facility] 00:00:00 [facility] Hep B, Adol or Pedi 2002 Completed [facility] Dosage 00:00:00 [facility] Polio (IPV/OPV) 2002 Completed [facility] 00:00:00 [facility] DTAP 2002 Completed [facility] 00:00:00 [facility] HIB 4 Dose Schedule 2002 Completed [facility] 00:00:00 [facility] Hep B, Adol or Pedi 2002 Completed [facility] Dosage 00:00:00 [facility] Polio (IPV/OPV) 2002 Completed [facility] 00:00:00 [facility] DTAP 2002 Completed [facility] 00:00:00 [facility] HIB 4 Dose Schedule 2002 Completed [facility] 00:00:00 [facility] Hep B, Adol or Pedi 2002 Completed [facility] Dosage 00:00:00 [facility] Polio (IPV/OPV) 2002 Completed [facility] 00:00:00 [facility] DTAP 2002 Completed [facility] 00:00:00 [facility] HIB 4 Dose Schedule 2002 Completed [facility] 00:00:00 [facility] Hep B, Adol or Pedi 2002 Completed [facility] Dosage 00:00:00 [facility] Polio (IPV/OPV) 2002 Completed [facility] 00:00:00 [facility] DTAP 2002 Completed [facility] 00:00:00 [facility] HIB 4 Dose Schedule 2002 Completed [facility] 00:00:00 [facility] Hep B, Adol or Pedi 2002 Completed [facility] Dosage 00:00:00 [facility] Polio (IPV/OPV) 2002 Completed [facility] 00:00:00 [facility] DTAP 2002 Completed [facility] 00:00:00 [facility] HIB 4 Dose Schedule 2002 Completed [facility] 00:00:00 [facility] Hep B, Adol or Pedi 2002 Completed [facility] Dosage 00:00:00 [facility] Polio (IPV/OPV) 2002 Completed [facility] 00:00:00 [facility] DTAP 2002 Completed [facility] 00:00:00 [facility] HIB 4 Dose Schedule 2002 Completed [facility] 00:00:00 [facility] Hep B, Adol or Pedi 2002 Completed [facility] Dosage 00:00:00 [facility] Polio (IPV/OPV) 2002 Completed [facility] 00:00:00 [facility] DTAP 2002 Completed [facility] 00:00:00 [facility] HIB 4 Dose Schedule 2002 Completed [facility] 00:00:00 [facility] Hep B, Adol or Pedi 2002 Completed [facility] Dosage 00:00:00 [facility] Polio (IPV/OPV) 2002 Completed [facility] 00:00:00 [facility] DTAP 2002 Completed [facility] 00:00:00 [facility] HIB 4 Dose Schedule 2002 Completed [facility] 00:00:00 [facility] Hep B, Adol or Pedi 2002 Completed [facility] Dosage 00:00:00 [facility] Polio (IPV/OPV) 2002 Completed [facility] 00:00:00 [facility] DTAP 2002 Completed [facility] 00:00:00 [facility] HIB 4 Dose Schedule 2002 Completed [facility] 00:00:00 [facility] Hep B, Adol or Pedi 2002 Completed [facility] Dosage 00:00:00 [facility] Polio (IPV/OPV) 2002 Completed [facility] 00:00:00 [facility] DTAP 2002 Completed [facility] 00:00:00 [facility] HIB 4 Dose Schedule 2002 Completed [facility] 00[facility]00:00 [facility] Hep B, Adol or Pedi 2002 Completed [facility] Dosage 00:00:00 [facility] Polio (IPV/OPV) 2002 Completed [facility] 00:00:00 [facility] DTAP 2002 Completed [facility] 00:00:00 [facility] HIB 4 Dose Schedule 2002 Completed [facility] 00:00:00 [facility] Hep B, Adol or Pedi 2002 Completed [facility] Dosage 00:00:00 [facility] Polio (IPV/OPV) 2002 Completed [facility] 00:00:00 [facility] DTAP 2002 Completed [facility] 00:00:00 [facility] HIB 4 Dose Schedule 2002 Completed [facility] 00:00:00 [facility] Hep B, Adol or Pedi 2002 Completed [facility] Dosage 00:00:00 [facility] Polio (IPV/OPV) 2002 Completed [facility] 00:00:00 [facility] DTAP 2002 Completed [facility] 00:00:00 [facility] HIB 4 Dose Schedule 2002 Completed [facility] 00:00:00 [facility] Hep B, Adol or Pedi 2002 Completed [facility] Dosage 00:00:00 [facility] Polio (IPV/OPV) 2002 Completed [facility] 00:00:00 [facility] DTAP 2002 Completed [facility] 00:00:00 [facility] HIB 4 Dose Schedule 2002 Completed [facility] 00:00:00 [facility] Hep B, Adol or Pedi 2002 Completed [facility] Dosage 00:00:00 [facility] Polio (IPV/OPV) 2002 Completed [facility] 00:00:00 [facility] DTAP 2002 Completed [facility] 00:00:00 [facility] HIB 4 Dose Schedule 2002 Completed [facility] 00:00:00 [facility] Hep B, Adol or Pedi 2002 Completed [facility] Dosage 00:00:00 [facility] Polio (IPV/OPV) 2002 Completed [facility] 00:00:00 [facility] DTAP 2002 Completed [facility] 00:00:00 [facility] HIB 4 Dose Schedule 2002 Completed [facility] 00:00:00 [facility] Hep B, Adol or Pedi 2002 Completed [facility] Dosage 00:00:00 [facility] Polio (IPV/OPV) 2002 Completed [facility] 00:00:00 [facility] DTAP 2002 Completed [facility] 00:00:00 [facility] HIB 4 Dose Schedule 2002 Completed [facility] 00:00:00 [facility] Hep B, Adol or Pedi 2002 Completed [facility] Dosage 00:00:00 [facility] Polio (IPV/OPV) 2002 Completed [facility] 00:00:00 [facility] DTAP 2002 Completed [facility] 00:00:00 [facility] HIB 4 Dose Schedule 2002 Completed [facility] 00:00:00 [facility] Hep B, Adol or Pedi 2002 Completed [facility] Dosage 00:00:00 [facility] Polio (IPV/OPV) 2002 Completed [facility] 00:00:00 [facility] DTAP 2002 Completed [facility] 00:00:00 [facility] HIB 4 Dose Schedule 2002 Completed [facility] 00:00:00 [facility] Hep B, Adol or Pedi 2002 Completed [facility] Dosage 00:00:00 [facility] Polio (IPV/OPV) 2002 Completed [facility] 00:00:00 [facility] DTAP 2002 Completed [facility] 00:00:00 [facility] HIB 4 Dose Schedule 2002 Completed [facility] 00:00:00 [facility] Hep B, Adol or Pedi 2002 Completed [facility] Dosage 00:00:00 [facility] Polio (IPV/OPV) 2002 Completed [facility] 00:00:00 [facility] DTAP 2002 Completed [facility] 00:00:00 [facility] HIB 4 Dose Schedule 2002 Completed [facility] 00:00:00 [facility] Hep B, Adol or Pedi 2002 Completed [facility] Dosage 00:00:00 [facility] Polio (IPV/OPV) 2002 Completed [facility] 00:00:00 [facility] DTAP 2002 Completed [facility] 00:00:00 [facility] HIB 4 Dose Schedule 2002 Completed [facility] 00:00:00 [facility] Hep B, Adol or Pedi 2002 Completed [facility] Dosage 00:00:00 [facility] Polio (IPV/OPV) 2002 Completed [facility] 00:00:00 [facility] DTAP 2002 Completed [facility] 00:00:00 [facility] HIB 4 Dose Schedule 2002 Completed [facility] 00:00:00 [facility] Hep B, Adol or Pedi 2002 Completed [facility] Dosage 00:00:00 [facility] Polio (IPV/OPV) 2002 Completed [facility] 00:00:00 [facility] DTAP 2002 Completed [facility] 00:00:00 [facility] HIB 4 Dose Schedule 2002 Completed [facility] 00:00:00 [facility] Hep B, Adol or Pedi 2002 Completed [facility] Dosage 00:00:00 [facility] Polio (IPV/OPV) 2002 Completed [facility] 00:00:00 [facility] DTAP 2002 Completed [facility] 00:00:00 [facility] HIB 4 Dose Schedule 2002 Completed [facility] 00:00:00 [facility] Hep B, Adol or Pedi 2002 Completed [facility] Dosage 00:00:00 [facility] Polio (IPV/OPV) 2002 Completed [facility] 00:00:00 [facility] DTAP 2002 Completed [facility] 00:00:00 [facility] HIB 4 Dose Schedule 2002 Completed [facility] 00:00:00 [facility] Hep B, Adol or Pedi 2002 Completed [facility] Dosage 00:00:00 [facility] Polio (IPV/OPV) 2002 Completed [facility] 00:00:00 [facility] DTAP 2002 Completed [facility] 00:00:00 [facility] HIB 4 Dose Schedule 2002 Completed [facility] 00:00:00 [facility] Hep B, Adol or Pedi 2002 Completed [facility] Dosage 00:00:00 [facility] Polio (IPV/OPV) 2002 Completed [facility] 00:00:00 [facility] DTAP 2002 Completed [facility] 00:00:00 [facility] HIB 4 Dose Schedule 2002 Completed [facility] 00:00:00 [facility] Hep B, Adol or Pedi 2002 Completed [facility] Dosage 00:00:00 [facility] Polio (IPV/OPV) 2002 Completed [facility] 00:00:00 [facility] DTAP 2002 Completed [facility] 00:00:00 [facility] HIB 4 Dose Schedule 2002 Completed [facility] 00:00:00 [facility] Hep B, Adol or Pedi 2002 Completed [facility] Dosage 00:00:00 [facility] Polio (IPV/OPV) 2002 Completed [facility] 00:00:00 [facility] DTAP 2002 Completed [facility] 00:00:00 [facility] HIB 4 Dose Schedule 2002 Completed [facility] 00:00:00 [facility] Hep B, Adol or Pedi 2002 Completed [facility] Dosage 00:00:00 [facility] Polio (IPV/OPV) 2002 Completed [facility] 00:00:00 [facility] DTAP 2002 Completed [facility] 00:00:00 [facility] HIB 4 Dose Schedule 2002 Completed [facility] 00:00:00 [facility] Hep B, Adol or Pedi 2002 Completed [facility] Dosage 00:00:00 [facility] Polio (IPV/OPV) 2002 Completed [facility] 00:00:00 [facility] DTAP 2002 Completed [facility] 00:00:00 [facility] HIB 4 Dose Schedule 2002 Completed [facility] 00:00:00 [facility] Hep B, Adol or Pedi 2002 Completed [facility] Dosage 00:00:00 [facility] Polio (IPV/OPV) 2002 Completed [facility] 00:00:00 [facility] DTAP 2002 Completed [facility] 00:00:00 [facility] HIB 4 Dose Schedule 2002 Completed [facility] 00:00:00 [facility] Hep B, Adol or Pedi 2002 Completed [facility] Dosage 00:00:00 [facility] Polio (IPV/OPV) 2002 Completed [facility] 00:00:00 [facility] DTAP 2002 Completed [facility] 00:00:00 [facility] HIB 4 Dose Schedule 2002 Completed [facility] 00:00:00 [facility] Hep B, Adol or Pedi 2002 Completed [facility] Dosage 00:00:00 [facility] Polio (IPV/OPV) 2002 Completed [facility] 00:00:00 [facility] DTAP 2002 Completed [facility] 00:00:00 [facility] HIB 4 Dose Schedule 2002 Completed [facility] 00:00:00 [facility] Hep B, Adol or Pedi 2002 Completed [facility] Dosage 00:00:00 [facility] Polio (IPV/OPV) 2002 Completed [facility] 00:00:00 [facility] DTAP 2002 Completed [facility] 00:00:00 [facility] HIB 4 Dose Schedule 2002 Completed [facility] 00:00:00 [facility] Hep B, Adol or Pedi 2002 Completed [facility] Dosage 00:00:00 [facility] Polio (IPV/OPV) 2002 Completed [facility] 00:00:00 [facility] DTAP 2002 Completed [facility] 00:00:00 [facility] HIB 4 Dose Schedule 2002 Completed [facility] 00:00:00 [facility] Hep B, Adol or Pedi 2002 Completed [facility] Dosage 00:00:00 [facility] Polio (IPV/OPV) 2002 Completed [facility] 00:00:00 [facility] DTAP 2002 Completed [facility] 00:00:00 [facility] HIB 4 Dose Schedule 2002 Completed [facility] 00:00:00 [facility] Hep B, Adol or Pedi 2002 Completed [facility] Dosage 00:00:00 [facility] Polio (IPV/OPV) 2002 Completed [facility] 00:00:00 [facility] DTAP 2002 Completed [facility] 00:00:00 [facility] HIB 4 Dose Schedule 2002 Completed [facility] 00:00:00 [facility] Hep B, Adol or Pedi 2002 Completed [facility] Dosage 00:00:00 [facility] Polio (IPV/OPV) 2002 Completed [facility] 00:00:00 [facility] DTAP 2002 Completed [facility] 00:00:00 [facility] HIB 4 Dose Schedule 2002 Completed [facility] 00:00:00 [facility] Hep B, Adol or Pedi 2002 Completed [facility] Dosage 00:00:00 [facility] Polio (IPV/OPV) 2002 Completed [facility] 00:00:00 [facility] DTAP 2002 Completed [facility] 00:00:00 [facility] HIB 4 Dose Schedule 2002 Completed [facility] 00:00:00 [facility] Hep B, Adol or Pedi 2002 Completed [facility] Dosage 00:00:00 [facility] Polio (IPV/OPV) 2002 Completed [facility] 00:00:00 [facility] DTAP 2002 Completed [facility] 00:00:00 [facility] HIB 4 Dose Schedule 2002 Completed [facility] 00:00:00 [facility] Hep B, Adol or Pedi 2002 Completed [facility] Dosage 00:00:00 [facility] Polio (IPV/OPV) 2002 Completed [facility] 00:00:00 [facility] DTAP 2002 Completed [facility] 00:00:00 [facility] HIB 4 Dose Schedule 2002 Completed [facility] 00:00:00 [facility] Hep B, Adol or Pedi 2002 Completed [facility] Dosage 00:00:00 [facility] Polio (IPV/OPV) 2002 Completed [facility] 00:00:00 [facility] DTAP 2002 Completed [facility] 00[facility]00:00 [facility] HIB 4 Dose Schedule 2002 Completed [facility] 00:00:00 [facility] Hep B, Adol or Pedi 2002 Completed [facility] Dosage 00:00:00 [facility] Polio (IPV/OPV) 2002 Completed [facility] 00:00:00 [facility] DTAP 2002 Completed [facility] 00:00:00 [facility] HIB 4 Dose Schedule 2002 Completed [facility] 00:00:00 [facility] Hep B, Adol or Pedi 2002 Completed [facility] Dosage 00:00:00 [facility] Polio (IPV/OPV) 2002 Completed [facility] 00:00:00 [facility] DTAP 2002 Completed [facility] 00:00:00 [facility] HIB 4 Dose Schedule 2002 Completed [facility] 00:00:00 [facility] Hep B, Adol or Pedi 2002 Completed [facility] Dosage 00:00:00 [facility] Polio (IPV/OPV) 2002 Completed [facility] 00:00:00 [facility] DTAP 2002 Completed [facility] 00[facility]00:00 [facility] HIB 4 Dose Schedule 2002 Completed [facility] 00:00:00 [facility] Hep B, Adol or Pedi 2002 Completed [facility] Dosage 00:00:00 [facility] Polio (IPV/OPV) 2002 Completed [facility] 00:00:00 [facility] DTAP 2002 Completed [facility] 00[facility]00:00 [facility] HIB 4 Dose Schedule 2002 Completed [facility] 00:00:00 [facility] Hep B, Adol or Pedi 2002 Completed [facility] Dosage 00:00:00 [facility] Polio (IPV/OPV) 2002 Completed [facility] 00:00:00 [facility] DTAP 2002 Completed [facility] 00:00:00 [facility] HIB 4 Dose Schedule 2002 Completed [facility] 00:00:00 [facility] Hep B, Adol or Pedi 2002 Completed [facility] Dosage 00:00:00 [facility] Polio (IPV/OPV) 2002 Completed [facility] 00:00:00 [facility] DTAP 2002 Completed [facility] 00:00:00 [facility] HIB 4 Dose Schedule 2002 Completed [facility] 00:00:00 [facility] Hep B, Adol or Pedi 2002 Completed [facility] Dosage 00:00:00 [facility] Polio (IPV/OPV) 2002 Completed [facility] 00:00:00 [facility] DTAP 2002 Completed [facility] 00:00:00 [facility] HIB 4 Dose Schedule 2002 Completed [facility] 00:00:00 [facility] Hep B, Adol or Pedi 2002 Completed [facility] Dosage 00:00:00 [facility] Polio (IPV/OPV) 2002 Completed [facility] 00:00:00 [facility] DTAP 2002 Completed [facility] 00:00:00 [facility] HIB 4 Dose Schedule 2002 Completed [facility]ity of 00:00:00 [facility] Hep B, Adol or Pedi 2002 Completed [facility]ive rsity of Dosage 00:00:00 [facility] Polio (IPV/OPV) 2002 Completed [facility] 00:00:00 [facility] DTAP 2002 Completed [facility] 00:00:00 [facility] HIB 4 Dose Schedule 2002 Completed [facility] rsity of 00:00:00 [facility] Hep B, Adol or Pedi 2002 Completed [facility]ive rsity of Dosage 00:00:00 [facility] Polio (IPV/OPV) 2002 Completed [facility] 00:00:00 [facility] DTAP 2002 Completed [facility] 00:00:00 [facility] HIB 4 Dose Schedule 2002 Completed [facility]ive rsity of 00:00:00 [facility] Hep B, Adol or Pedi 2002 Completed [facility]ive rsity of Dosage 00:00:00 [facility] Polio (IPV/OPV) 2002 Completed [facility] 00:00:00 [facility] DTAP 2002 Completed [facility] 00:00:00 [facility] HIB 4 Dose Schedule 2002 Completed [facility] of 00:00:00 [facility] Hep B, Adol or Pedi 2002 Completed [facility]ive [facility]ity of Dosage 00:00:00 [facility] Polio (IPV/OPV) 2002 Completed [facility] 00:00:00 [facility] DTAP 2002 Completed [facility] 00:00:00 [facility] HIB 4 Dose Schedule 2002 Completed [facility] 00:00:00 [facility] Hep B, Adol or Pedi 2002 Completed [facility] of Dosage 00:00:00 [facility] Polio (IPV/OPV) 2002 Completed [facility] 00:00:00 [facility] DTAP 2002 Completed [facility] 00:00:00 [facility] HIB 4 Dose Schedule 2002 Completed [facility] 00:00:00 [facility] Hep B, Adol or Pedi 2002 Completed [facility] rsity of Dosage 00:00:00 [facility] Polio (IPV/OPV) 2002 Completed [facility] 00:00:00 [facility] DTAP 2002 Completed [facility] 00:00:00 [facility] HIB 4 Dose Schedule 2002 Completed [facility] 00:00:00 [facility] Hep B, Adol or Pedi 2002 Completed [facility]ive [facility]ity of Dosage 00:00:00 [facility] Polio (IPV/OPV) 2002 Completed [facility] 00:00:00 [facility] DTAP 2002 Completed [facility] 00:00:00 [facility] HIB 4 Dose Schedule 2002 Completed [facility] of 00:00:00 [facility] Hep B, Adol or Pedi 2002 Completed [facility] of Dosage 00:00:00 [facility] Polio (IPV/OPV) 2002 Completed [facility] 00:00:00 [facility] DTAP 2002 Completed [facility] 00:00:00 [facility] HIB 4 Dose Schedule 2002 Completed [facility] 00:00:00 [facility] Hep B, Adol or Pedi 2002 Completed [facility] of Dosage 00:00:00 [facility] Polio (IPV/OPV) 2002 Completed [facility] 00:00:00 [facility] DTAP 2002 Completed [facility] 00:00:00 [facility] HIB 4 Dose Schedule 2002 Completed [facility] 00:00:00 [facility] Hep B, Adol or Pedi 2002 Completed [facility] of Dosage 00:00:00 [facility] Polio (IPV/OPV) 2002 Completed [facility] 00:00:00 [facility] DTAP 2002 Completed [facility] 00:00:00 [facility] HIB 4 Dose Schedule 2002 Completed [facility] 00:00:00 [facility] Hep B, Adol or Pedi 2002 Completed [facility] of Dosage 00:00:00 [facility] Polio (IPV/OPV) 2002 Completed [facility] 00:00:00 [facility] DTAP 2002 Completed [facility] 00:00:00 [facility] HIB 4 Dose Schedule 2002 Completed [facility] of 00:00:00 [facility] Hep B, Adol or Pedi 2002 Completed [facility] rsity of Dosage 00:00:00 [facility] Polio (IPV/OPV) 2002 Completed [facility] 00:00:00 [facility] DTAP 2002 Completed [facility] 00:00:00 [facility] HIB 4 Dose Schedule 2002 Completed [facility] of 00:00:00 [facility] Hep B, Adol or Pedi 2002 Completed [facility] of Dosage 00:00:00 [facility] Polio (IPV/OPV) 2002 Completed [facility] 00:00:00 [facility] DTAP 2002 Completed [facility] 00:00:00 [facility] HIB 4 Dose Schedule 2002 Completed [facility] 00:00:00 [facility] Hep B, Adol or Pedi 2002 Completed [facility] of Dosage 00:00:00 [facility] Polio (IPV/OPV) 2002 Completed [facility] 00:00:00 [facility] DTAP 2002 Completed [facility] 00:00:00 [facility] HIB 4 Dose Schedule 2002 Completed [facility] of 00:00:00 [facility] Hep B, Adol or Pedi 2002 Completed [facility] of Dosage 00:00:00 [facility] Polio (IPV/OPV) 2002 Completed [facility] 00:00:00 [facility] DTAP 2002 Completed [facility] 00:00:00 [facility] HIB 4 Dose Schedule 2002 Completed [facility] of 00:00:00 [facility] Hep B, Adol or Pedi 2002 Completed [facility] of Dosage 00:00:00 [facility] Polio (IPV/OPV) 2002 Completed [facility] 00:00:00 [facility] DTAP 2002 Completed [facility] 00:00:00 [facility] HIB 4 Dose Schedule 2002 Completed [facility] of 00:00:00 [facility] Hep B, Adol or Pedi 2002 Completed [facility]ity of Dosage 00:00:00 [facility] Polio (IPV/OPV) 2002 Completed [facility] 00:00:00 [facility] DTAP 2002 Completed [facility] 00:00:00 [facility] HIB 4 Dose Schedule 2002 Completed [facility]ive rsity of 00:00:00 [facility] Hep B, Adol or Pedi 2002 Completed [facility]ity of Dosage 00:00:00 [facility] Polio (IPV/OPV) 2002 Completed [facility] 00:00:00 [facility] DTAP 2002 Completed [facility] 00:00:00 [facility] HIB 4 Dose Schedule 2002 Completed [facility]ive [facility]ity of 00:00:00 [facility] Hep B, Adol or Pedi 2002 Completed [facility]ity of Dosage 00:00:00 [facility] Polio (IPV/OPV) 2002 Completed [facility] 00:00:00 [facility] DTAP 2002 Completed [facility] 00:00:00 [facility] HIB 4 Dose Schedule 2002 Completed [facility]ity of 00:00:00 [facility] Hep B, Adol or Pedi 2002 Completed [facility] of Dosage 00:00:00 [facility] Polio (IPV/OPV) 2002 Completed [facility] 00:00:00 [facility] DTAP 2002 Completed [facility] 00:00:00 [facility] HIB 4 Dose Schedule 2002 Completed [facility]ity of 00:00:00 [facility] Hep B, Adol or Pedi 2002 Completed [facility]ive [facility]ity of Dosage 00:00:00 [facility] Polio (IPV/OPV) 2002 Completed [facility] 00:00:00 [facility] DTAP 2002 Completed [facility] 00:00:00 [facility] HIB 4 Dose Schedule 2002 Completed [facility]ive [facility]ity of 00:00:00 [facility] Hep B, Adol or Pedi 2002 Completed [facility]ive rsity of Dosage 00:00:00 [facility] Polio (IPV/OPV) 2002 Completed [facility] 00:00:00 [facility] DTAP 2002 Completed [facility] 00:00:00 [facility] HIB 4 Dose Schedule 2002 Completed [facility]ity of 00:00:00 [facility] Hep B, Adol or Pedi 2002 Completed [facility]ive rsity of Dosage 00:00:00 [facility] Polio (IPV/OPV) 2002 Completed [facility] Unknown Completed [facility] Influenza Virus Unknown Completed [facility] Vaccine [facility] HEPATITIS A Unknown Completed [facility] DTAP Unknown Completed [facility] Proquad Unknown Completed [facility] (MMR/VARICELLA) [facility] Polio (IPV/OPV) Unknown Completed [facility] Influenza Virus Unknown Completed [facility] Vaccine [facility] Influenza Virus Unknown Completed [facility] Vaccine [facility] Influenza Virus Unknown Completed [facility] Vaccine [facility] Influenza Virus Unknown Completed [facility] Vaccine [facility] Influenza Virus Unknown Completed [facility] Vaccine [facility] Influenza Virus Unknown Completed [facility] Vaccine [facility] Influenza Virus Unknown Completed Universit y of Vaccine (3+ yrs) [facility] Meningococcal Unknown Completed [facility] Polysaccharide [facility] (groups A, C, Y and Branc h W-135) conjugate vaccine (MCV4P) TDAP Unknown Completed [facility] Influenza Virus Unknown Completed Universit y of Vaccine (3+ yrs) [facility] Influenza Virus Unknown Completed Univers[facility] of Vaccine Quad IM 3+ [facility] HPV9 Unknown Completed [facility] HPV Unknown Completed [facility] HPV9 Unknown Completed [facility] Influenza Virus Unknown Completed [facility] of Vaccine Quad IM 3+ [facility] Meningococcal Unknown Completed [facility] Polysaccharide [facility] (groups A, C, Y and Branc h W-135) conjugate vaccine (MCV4P) Influenza Virus Unknown Completed Universit y of Vaccine Quad .5 mL [facility] 6+ MO Branch (FLUZONE/FLULAVAL/FL UARIX) Meningococcal B, OMV Unknown [facility], Adol or Pedi Unknown Completed Unive rsity of Dosage [facility] Meningococcal B, OMV Unknown Completed Univ ersity [facility] Influenza Virus Unknown Completed Universit y of Vaccine Quad .5 mL [facility] 6+ MO Branch (FLUZONE/FLULAVAL/FL UARIX) SARS-COV-2 COVID-19 Unknown Completed Unive rsity of PFIZER VACCINE [facility] SARS-COV-2 COVID-19 Unknown Completed Unive rsity of PFIZER VACCINE [facility] SARS-COV-2 COVID-19 Unknown Completed Unive rsity of PFIZER VACCINE [facility] SARS-COV-2 COVID-19 Unknown Completed [facility]ive rsity [facility] MIKE-SUCROSE [facility] BIVALENT Branch 0.3ML, IM, (PFIZER ARITA TOP) DTAP Unknown Completed [facility] DTAP Unknown Completed [facility] DTAP Unknown Completed [facility] HIB 4 Dose Schedule Unknown Completed Unive rsity [facility] HIB 4 Dose Schedule Unknown Completed Unive rsity [facility] HIB 4 Dose Schedule Unknown Completed Unive rsity of [facility] Hep B, Adol or Pedi Unknown Completed Unive rsity of Dosage [facility] Hep B, Adol or Pedi Unknown Completed Unive rsity of Dosage [facility] Pneumococcal 7 Unknown Completed [facility] Conjugate, PCV7 [facility] (Prevnar7) Branch Pneumococcal 7 Unknown Completed [facility] Conjugate, PCV7 [facility] (Prevnar7) Branch Polio (IPV/OPV) Unknown Completed Universit y [facility] Polio (IPV/OPV) Unknown Completed Univers[facility] y [facility] HIB 4 Dose Schedule Unknown [facility] Completed [facility] Pneumococcal 7 Unknown Completed University of Conjugate, PCV7 [facility] (Prevnar7) Branch Polio (IPV/OPV) Unknown Completed Univers[facility] y [facility] Varicella Unknown Completed [facility] (varivax)(chicken [place] [facility]) [facility] HEPATITIS A Unknown Completed [facility] Influenza Virus Unknown Completed [facility] HEPATITIS A Unknown Completed [facility] DTAP Unknown Completed [facility] Proquad Unknown Completed University of (MMR/VARICELLA) [facility] Polio (IPV/OPV) Unknown Completed [facility] of [facility] Influenza Virus Unknown Completed [facility] of Vaccine [facility] Influenza Virus Unknown Completed [facility] Vaccine [facility] Influenza Virus Unknown Completed [facility] Vaccine [facility] Influenza Virus Unknown Completed [facility] of Vaccine [facility] Influenza Virus Unknown Completed [facility] of Vaccine [facility] Influenza Virus Unknown Completed [facility] of Vaccine [facility] Influenza Virus Unknown Completed Universit y of Vaccine (3+ yrs) [facility] dical Branch Meningococcal Unknown Completed [facility] (groups A, C, Y and Branc h W-135) conjugate vaccine (MCV4P) TDAP Unknown Completed [facility] Influenza Virus Unknown Completed Universit y of Vaccine (3+ yrs) [facility] dical Branch Influenza Virus Unknown Completed Universit y of Vaccine Quad IM 3+ [facility] HPV9 Unknown Completed [facility] HPV Unknown Completed [facility] HPV9 Unknown Completed [facility] Influenza Virus Unknown Completed Universit y of Vaccine Quad IM 3+ [facility] Meningococcal Unknown Completed [facility] (groups A, C, Y and Branc h W-135) conjugate vaccine (MCV4P) Influenza Virus Unknown Completed Universit y of Vaccine Quad .5 mL [facility] 6+ [place] Branch (FLUZONE/FLULAVAL/FL UARIX) Meningococcal B, OMV Unknown Completed Univ ersity [facility] Hep B, Adol or Pedi Unknown Completed Unive rsity of Dosage [facility] Meningococcal B, OMV Unknown Completed Univ ersity [facility] Influenza Virus Unknown Completed Universit y of Vaccine Quad .5 mL [facility] 6+ MO Branch (FLUZONE/FLULAVAL/FL UARIX) SARS-COV-2 COVID-19 Unknown Completed Unive rsity of PFIZER VACCINE [facility] Branch SARS-COV-2 COVID-19 Unknown Completed Unive rsity of PFIZER VACCINE [facility] Branch SARS-COV-2 COVID-19 Unknown Completed Unive rsity of PFIZER VACCINE [facility] SARS-COV-2 COVID-19 Unknown Completed Unive rsity of MIKE-SUCROSE VACCINE [facility] 12 YRS+, BIVALENT Branch 0.3ML, IM, (PFIZER ARITA TOP) DTAP Unknown Completed [facility] DTAP Unknown Completed [facility] DTAP Unknown Completed [facility] HIB 4 Dose Schedule Unknown Completed Unive rsity of [facility] HIB 4 Dose Schedule Unknown Completed Unive rsity [facility] HIB 4 Dose Schedule Unknown Completed Unive rsity [facility] Hep B, Adol or Pedi Unknown Completed Unive rsity of Dosage [facility] Hep B, Adol or Pedi Unknown Completed Unive rsity of Dosage [facility] Pneumococcal 7 Unknown Completed [facility] Conjugate, PCV7 [facility] ical (Prevnar7) Branch Pneumococcal 7 Unknown Completed [facility] Conjugate, PCV7 [facility] ical (Prevnar7) Branch Polio (IPV/OPV) Unknown Completed Universit y [facility] Polio (IPV/OPV) Unknown Completed Universit y of [facility] HIB 4 Dose Schedule Unknown Completed Unive rsity [facility] MMR Unknown Completed [facility] Pneumococcal 7 Unknown Completed [facility] Conjugate, PCV7 [facility] (Prevnar7) Branch Polio (IPV/OPV) Unknown Completed [facility] of [facility] Varicella Unknown Completed University (varivax)(chicken [place] [facility] pox) [facility] HEPATITIS A Unknown Completed [facility] Influenza Virus Unknown Completed [facility] of Vaccine [facility] HEPATITIS A Unknown Completed [facility] DTAP Unknown Completed [facility] Proquad Unknown Completed University of (MMR/VARICELLA) [facility] Polio (IPV/OPV) Unknown Completed Universit y [facility] Influenza Virus Unknown Completed [facility] y of Vaccine [facility] Influenza Virus Unknown Completed [facility] of Vaccine [facility] Influenza Virus Unknown Completed [facility] of Vaccine [facility] Influenza Virus Unknown Completed [facility] of Vaccine [facility] Influenza Virus Unknown Completed [facility] y of Vaccine [facility] Influenza Virus Unknown Completed [facility] of Vaccine [facility] Influenza Virus Unknown Completed [facility]it y of Vaccine (3+ yrs) [facility] Com[facility] Polysaccharide [place] [facility] (groups A, C, Y and Branc h W-135) conjugate vaccine (MCV4P) TDAP Unknown Completed [facility] Influenza Virus Unknown Completed Universit y of Vaccine (3+ yrs) [facility] Influenza Virus Unknown Completed Universit y of Vaccine Quad IM 3+ [facility] HPV9 Unknown Completed [facility] HPV Unknown Completed [facility] HPV9 Unknown Completed [facility] Influenza Virus Unknown Completed Universit y of Vaccine Quad IM 3+ [facility] Meningococcal Unknown Completed University Polysaccharide [facility] (groups A, C, Y and Branc h W-135) conjugate vaccine (MCV4P) Influenza Virus Unknown Completed Universit y of Vaccine Quad .5 mL [facility] 6+ MO Branch (FLUZONE/FLULAVAL/FL UARIX) Meningococcal B, OMV Unknown [facility] B, Adol or Pedi Unknown Completed Unive rsity of Dosage [facility] Meningococcal B, OMV Unknown Completed Univ ersity [facility] Influenza Virus Unknown Completed [facility] Vaccine Quad .5 mL [facility] 6[facility] (FLUZONE/FLULAVAL/FL UARIX) SARS-COV-2 COVID-19 Unknown Completed Unive rsity of PFIZER VACCINE [facility] Branch SARS-COV-2 COVID-19 Unknown Completed Unive rsity of PFIZER VACCINE [facility] SARS-COV-2 COVID-19 Unknown Completed Unive rsity of PFIZER VACCINE [facility] SARS-COV-2 COVID-19 Unknown Completed Unive rsity [facility] MIKE-SUCROSE [facility] 12 Y[facility]+, BIVALENT Branch 0.3ML, IM, (PFIZER ARITA TOP) HEPATITIS A Unknown Completed [facility] Influenza Virus Unknown Completed [facility]it [facility] of Vaccine [facility] HEPATITIS A Unknown Completed [facility] DTAP Unknown Completed [facility] Proquad Unknown Completed University (MMR/VARICELLA) [facility] Polio (IPV/OPV) Unknown Completed Universit y of [facility] Influenza Virus Unknown Completed [facility]it y of Vaccine [facility] Influenza Virus Unknown Completed [facility] y of Vaccine [facility] Influenza Virus Unknown Completed [facility] of Vaccine [facility] Influenza Virus Unknown Completed [facility] of Vaccine [facility] Influenza Virus Unknown Completed [facility] y of Vaccine [facility] Influenza Virus Unknown Completed [facility] of Vaccine [facility] Influenza Virus Unknown Completed Universit y of Vaccine (3+ yrs) [facility] Meningococcal Unknown Completed [facility] (groups A, C, Y and Branc h W-135) conjugate vaccine (MCV4P) TDAP Unknown Completed [facility] Influenza Virus Unknown Completed Universit y of Vaccine (3+ yrs) [facility] Influenza Virus Unknown Completed Universit y of Vaccine Quad IM 3+ [facility] HPV9 Unknown Completed [facility] HPV Unknown Completed [facility] HPV9 Unknown Completed [facility] Influenza Virus Unknown Completed Universit y of Vaccine Quad IM 3+ [facility] Meningococcal Unknown Completed [facility] (groups A, C, Y and Branc h W-135) conjugate vaccine (MCV4P) Influenza Virus Unknown Completed Universit y of Vaccine Quad .5 mL [facility] IM 6+ MO Branch (FLUZONE/FLULAVAL/FL UARIX) Meningococcal B, OMV Unknown Completed Univ ersity of [facility] Hep B, Adol or Pedi Unknown Completed Unive rsity of Dosage [facility] Meningococcal B, OMV Unknown Completed Univ ersity of [facility] Influenza Virus Unknown Completed Universit y of Vaccine Quad .5 mL [facility] IM 6+ MO Branch (FLUZONE/FLULAVAL/FL UARIX) SARS-COV-2 COVID-19 Unknown Completed Unive rsity of PFIZER VACCINE [facility] Branch SARS-COV-2 COVID-19 Unknown Completed Unive rsity of PFIZER VACCINE [facility] Branch SARS-COV-2 COVID-19 Unknown Completed Unive rsity of PFIZER VACCINE [facility] Branch SARS-COV-2 COVID-19 Unknown Completed Unive rsity of MIKE-SUCROSE VACCINE [facility] 12 YRS+, BIVALENT Branch 0.3ML, IM, (PFIZER ARITA TOP) DTAP Unknown Completed [facility] DTAP Unknown Completed [facility] DTAP Unknown Completed [facility] HIB 4 Dose Schedule Unknown Completed Unive rsity of [facility] HIB 4 Dose Schedule Unknown Completed Unive rsity of [facility] HIB 4 Dose Schedule Unknown Completed Unive rsity of [facility] Hep B, Adol or Pedi Unknown Completed Unive rsity of Dosage [facility] Hep B, Adol or Pedi Unknown Completed Unive rsity of Dosage [facility] Pneumococcal 7 Unknown Completed University of Conjugate, PCV7 [facility] (Prevnar7) Branch Pneumococcal 7 Unknown Completed University of Conjugate, PCV7 [facility] (Prevnar7) Branch Polio (IPV/OPV) [facility] Polio (IPV/OPV) [facility] HIB 4 Dose Schedule Unknown [facility] Completed [facility] Pneumococcal 7 Unknown Completed University of Conjugate, PCV7 [facility] (Prevnar7) Branch Polio (IPV/OPV) Unknown Completed Universit y [facility] Varicella Unknown Completed University of (varivax)(chicken [place] [facility] pox) Branch HEPATITIS A Unknown Completed [facility] Influenza Virus Unknown Completed Universit y of Vaccine [facility] HEPATITIS A Unknown Completed [facility] DTAP Unknown Completed [facility] Proquad Unknown Completed University of (MMR/VARICELLA) [facility] Branch Polio (IPV/OPV) Unknown Completed [facility] y [facility] Influenza Virus Unknown Completed [facility]it y of Vaccine [facility] Influenza Virus Unknown Completed [facility]it y of Vaccine [facility] Influenza Virus Unknown Completed [facility] Vaccine [facility] Influenza Virus Unknown Completed [facility] Vaccine [facility] Influenza Virus Unknown Completed [facility]it y of Vaccine [facility] Influenza Virus Unknown Completed [facility] y of Vaccine [facility] Influenza Virus Unknown Completed Universit y of Vaccine (3+ yrs) [facility] dical [place] Meningococcal Unknown Completed [facility] Polysaccharide [facility] (groups A, C, Y and Branc h W-135) conjugate vaccine (MCV4P) TDAP Unknown Completed [facility] Influenza Virus Unknown Completed Universit y of Vaccine (3+ yrs) [facility] Unknown Completed [facility]it y of Vaccine Quad IM 3+ [facility] HPV9 Unknown Completed [facility] HPV Unknown Completed [facility] HPV9 Unknown Completed [facility] Influenza Virus Unknown Completed [facility]it y of Vaccine Quad IM 3+ [facility] Meningococcal Unknown Completed [facility] Polysaccharide [facility] (groups A, C, Y and Branc h W-135) conjugate vaccine (MCV4P) Influenza Virus Unknown Completed Universit y of Vaccine Quad .5 mL [facility] IM 6+ MO Branch (FLUZONE/FLULAVAL/FL UARIX) Meningococcal B, OMV Unknown [facility] B, Adol or Pedi Unknown Completed Unive rsity of Dosage [facility] Meningococcal B, OMV Unknown [facility] Influenza Virus Unknown Completed [facility] y of Vaccine Quad .5 mL [facility] IM 6+ MO Branch (FLUZONE/FLULAVAL/FL UARIX) SARS-COV-2 COVID-19 Unknown Completed Unive rsity of PFIZER VACCINE [facility] SARS-COV-2 COVID-19 Unknown Completed Unive rsity of PFIZER VACCINE [facility] SARS-COV-2 COVID-19 Unknown Completed Unive rsity of PFIZER VACCINE [facility] SARS-COV-2 COVID-19 Unknown Completed Unive rsity of MIKE-SUCROSE VACCINE [facility] 12 YRS+, BIVALENT Branch 0.3ML, IM, (PFIZER ARITA TOP) HEPATITIS A Unknown Completed [facility] Influenza Virus Unknown Completed Universit y of Vaccine [facility] HEPATITIS A Unknown Completed [facility] DTAP Unknown Completed [facility] Proquad Unknown Completed University of (MMR/VARICELLA) [facility] Polio (IPV/OPV) Unknown Completed [facility]it y of [facility] Influenza Virus Unknown Completed [facility] y of Vaccine [facility] Influenza Virus Unknown Completed [facility] y of Vaccine [facility] Influenza Virus Unknown Completed [facility] y of Vaccine [facility] Influenza Virus Unknown Completed [facility]it y of Vaccine [facility] Influenza Virus Unknown Completed [facility]it y of Vaccine [facility] Influenza Virus Unknown Completed [facility]it y of Vaccine [facility] Influenza Virus Unknown Completed Universit y of Vaccine (3+ yrs) [facility] Meningococcal Unknown Completed [facility] Polysaccharide [facility] (groups A, C, Y and Branc h W-135) conjugate vaccine (MCV4P) TDAP Unknown Completed [facility] Influenza Virus Unknown Completed Universit y of Vaccine (3+ yrs) [facility] Influenza Virus Unknown Completed Universit y of Vaccine Quad IM 3+ [facility] HPV9 Unknown Completed [facility] HPV Unknown Completed [facility] HPV9 Unknown Completed [facility] Influenza Virus Unknown Completed [facility]it y of Vaccine Quad IM 3+ [facility] Meningococcal Unknown Completed [facility] Polysaccharide [facility] (groups A, C, Y and Branc h W-135) conjugate vaccine (MCV4P) Influenza Virus Unknown Completed Universit y of Vaccine Quad .5 mL [facility] 6+ MO Branch (FLUZONE/FLULAVAL/FL UARIX) Meningococcal B, OMV Unknown [facility] B, Adol or Pedi Unknown Completed Unive rsity of Dosage [facility] Meningococcal B, OMV Unknown [facility] Influenza Virus Unknown Completed [facility] y of Vaccine Quad .5 mL [facility] 6+ MO Branch (FLUZONE/FLULAVAL/FL UARIX) SARS-COV-2 COVID-19 Unknown Completed Unive rsity of PFIZER VACCINE [facility] SARS-COV-2 COVID-19 Unknown Completed Unive rsity of PFIZER VACCINE [facility] SARS-COV-2 COVID-19 Unknown Completed Unive rsity of PFIZER VACCINE [facility] SARS-COV-2 COVID-19 Unknown Completed Unive rsity of MIKE-SUCROSE VACCINE [facility] 12 YRS+, BIVALENT Branch 0.3ML, IM, (PFIZER ARITA TOP) HEPATITIS A Unknown Completed [facility] Influenza Virus Unknown Completed Universit y of Vaccine [facility] HEPATITIS A Unknown Completed [facility] DTAP Unknown Completed [facility] Proquad Unknown Completed [facility] (MMR/VARICELLA) [facility] Polio (IPV/OPV) Unknown Completed [facility]it y of [facility] Influenza Virus Unknown Completed [facility]it y of Vaccine [facility] Influenza Virus Unknown Completed [facility] y of Vaccine [facility] Influenza Virus Unknown Completed [facility]it y of Vaccine [facility] Influenza Virus Unknown Completed [facility]it y of Vaccine [facility] Influenza Virus Unknown Completed [facility]it y of Vaccine [facility] Influenza Virus Unknown Completed [facility]it y of Vaccine [facility] Influenza Virus Unknown Completed Universit y of Vaccine (3+ yrs) [facility] Meningococcal Unknown Completed [facility] (groups A, C, Y and Branc h W-135) conjugate vaccine (MCV4P) TDAP Unknown Completed [facility] Influenza Virus Unknown Completed Universit y of Vaccine (3+ yrs) [facility] Influenza Virus Unknown Completed Universit y of Vaccine Quad IM 3+ [facility] HPV9 Unknown Completed [facility] HPV Unknown Completed [facility] HPV9 Unknown Completed [facility] Influenza Virus Unknown Completed Universit y of Vaccine Quad IM 3+ [facility] Meningococcal Unknown Completed [facility] (groups A, C, Y and Branc h W-135) conjugate vaccine (MCV4P) Influenza Virus Unknown Completed Universit y of Vaccine Quad .5 mL [facility] 6+ MO Branch (FLUZONE/FLULAVAL/FL UARIX) Meningococcal B, OMV Unknown Completed Univ ersity [facility] Hep B, Adol or Pedi Unknown Completed Unive rsity of Dosage [facility] Meningococcal B, OMV Unknown [facility] Influ[facility] Virus Unknown Completed [facility] y of Vaccine Quad .5 mL [facility] 6+ MO Branch (FLUZONE/FLULAVAL/FL UARIX) SARS-COV-2 COVID-19 Unknown Completed Unive rsity of PFIZER VACCINE [facility] SARS-COV-2 COVID-19 Unknown Completed Unive rsity of PFIZER VACCINE [facility] SARS-COV-2 COVID-19 Unknown Completed [facility] SARS-COV-2 COVID-19 Unknown Completed Unive rsity of MIKE-SUCROSE VACCINE [facility] 12 YRS+, BIVALENT Branch 0.3ML, IM, (PFIZER ARITA TOP) DTAP Unknown Completed [facility] DTAP Unknown Completed [facility] DTAP Unknown Completed [facility] HIB 4 Dose Schedule Unknown Completed Unive rsity [facility] HIB 4 Dose Schedule Unknown Completed Unive rsity of [facility] HIB 4 Dose Schedule Unknown Completed Unive rsity [facility] Hep B, Adol or Pedi Unknown Completed Unive rsity of Dosage [facility] Hep B, Adol or Pedi Unknown Completed Unive rsity of Dosage [facility] Pneumococcal 7 Unknown Completed [facility] Conjugate, PCV7 [facility] (Prevn[facility]) Branch Pneumococcal 7 Unknown Completed [facility] Conjugate, PCV7 [facility] (Prevnar7) Branch Polio (IPV/OPV) Unknown Completed Universit y [facility] Polio (IPV/OPV) Unknown Completed [facility] y [facility] HIB 4 Dose Schedule Unknown [facility] Completed [facility] Pneumococcal 7 Unknown Completed University of Conjugate, PCV7 [facility] (Prevnar7) Branch Polio (IPV/OPV) Unknown Completed [facility] y [facility] Varicella Unknown Completed [facility] of (varivax)(chicken [place] [facility] pox) Branch HEPATITIS A Unknown Completed [facility] Influenza Virus Unknown Completed [facility] of [facility] HEPATITIS A Unknown Completed [facility] DTAP Unknown Completed [facility] Proquad Unknown Completed University of (MMR/VARICELLA) [facility] Branch Polio (IPV/OPV) Unknown Completed [facility] y [facility] Influenza Virus Unknown Completed [facility] y of [facility] Influenza Virus Unknown Completed Universit y of Vaccine [facility] Influenza Virus Unknown Completed Universit y of Vaccine [facility] Influenza Virus Unknown Completed [facility]it y of Vaccine [facility] Influenza Virus Unknown Completed [facility]it y of Vaccine [facility] Influenza Virus Unknown Completed [facility] y of [facility] Influenza Virus Unknown Completed Universit y of Vaccine (3+ yrs) [facility] dical Branch Meningococcal Unknown Completed University of Polysaccharide [facility] (groups A, C, Y and Branc h W-135) conjugate vaccine (MCV4P) TDAP Unknown Completed [facility] Influenza Virus Unknown Completed Universit y of Vaccine (3+ yrs) [facility] dical Branch Influenza Virus Unknown Completed Universit y of Vaccine Quad IM 3+ [facility] Branch HPV9 Unknown Completed [facility] HPV Unknown Completed [facility] HPV9 Unknown Completed [facility] Influenza Virus Unknown Completed Universit y of Vaccine Quad IM 3+ [facility] Branch Meningococcal Unknown Completed [facility] (groups A, C, Y and Branc h W-135) conjugate vaccine (MCV4P) Influenza Virus Unknown Completed Universit y of Vaccine Quad .5 mL [facility] IM 6+ MO Branch (FLUZONE/FLULAVAL/FL UARIX) Meningococcal B, OMV Unknown Completed Univ ersity [facility] Hep B, Adol or Pedi Unknown Completed Unive rsity of Dosage [facility] Meningococcal B, OMV Unknown Completed Univ ersity [facility] Influenza Virus Unknown Completed Universit y of Vaccine Quad .5 mL [facility] IM 6+ MO Branch (FLUZONE/FLULAVAL/FL UARIX) SARS-COV-2 COVID-19 Unknown Completed Unive rsity of PFIZER VACCINE [facility] Branch SARS-COV-2 COVID-19 Unknown Completed Unive rsity of PFIZER VACCINE [facility] SARS-COV-2 COVID-19 Unknown Completed Unive rsity of PFIZER VACCINE [facility] SARS-COV-2 COVID-19 Unknown Completed Unive rsity of MIKE-SUCROSE VACCINE [facility] 12 YRS+, BIVALENT Branch 0.3ML, IM, (PFIZER ARITA TOP) DTAP Unknown Completed [facility] DTAP Unknown Completed [facility] DTAP Unknown Completed [facility] HIB 4 Dose Schedule Unknown Completed Unive rsity of [facility] HIB 4 Dose Schedule Unknown Completed Unive rsity [facility] HIB 4 Dose Schedule Unknown Completed Unive rsity [facility] Hep B, Adol or Pedi Unknown Completed Unive rsity of Dosage [facility] Hep B, Adol or Pedi Unknown Completed Unive rsity of Dosage [facility] Pneumococcal 7 Unknown Completed [facility] Conjugate, PCV7 [facility] ical (Prevnar7) Branch Pneumococcal 7 Unknown Completed [facility] Conjugate, PCV7 [facility] (Prevnar7) Branch Polio (IPV/OPV) Unknown Completed Universit y [facility] Polio (IPV/OPV) Unknown Completed [facility] y [facility] HIB 4 Dose Schedule Unknown [facility] Completed [facility] Pneumococcal 7 Unknown Completed [facility] Conjugate, PCV7 [facility] (Prevnar7) Branch Polio (IPV/OPV) Unknown Completed Universit y [facility] Varicella Unknown Completed University (varivax)(chicken [place] [facility] pox) Branch HEPATITIS A Unknown Completed [facility] Influenza Virus Unknown Completed Universit y of Vaccine [facility] HEPATITIS A Unknown Completed [facility] DTAP Unknown Completed [facility] Proquad Unknown Completed University (MMR/VARICELLA) [facility] Branch Polio (IPV/OPV) Unknown Completed Universit y of [facility] Influenza Virus Unknown Completed Universit y of Vaccine [facility] Influenza Virus Unknown Completed Universit y of Vaccine [facility] Influenza Virus Unknown Completed [facility]it y of Vaccine [facility] Influenza Virus Unknown Completed Universit y of Vaccine [facility] Influenza Virus Unknown Completed Universit y of Vaccine [facility] Influenza Virus Unknown Completed Universit y of Vaccine [facility] Influenza Virus Unknown Completed Universit y of Vaccine (3+ yrs) [facility] M[facility] Completed [facility] Polysaccharide [facility] (groups A, C, Y and Branc h W-135) conjugate vaccine (MCV4P) TDAP Unknown Completed [facility] Influenza Virus Unknown Completed Universit y of Vaccine (3+ yrs) [facility] Influenza Virus Unknown Completed Universit y of Vaccine Quad IM 3+ [facility] HPV9 Unknown Completed [facility] HPV Unknown Completed [facility] HPV9 Unknown Completed [facility] Influenza Virus Unknown Completed Universit y of Vaccine Quad IM 3+ [facility] Branch Meningococcal Unknown Completed University of Polysaccharide [facility] (groups A, C, Y and Branc h W-135) conjugate vaccine (MCV4P) Influenza Virus Unknown Completed Universit y of Vaccine Quad .5 mL [facility] 6+ MO Branch (FLUZONE/FLULAVAL/FL UARIX) Meningococcal B, OMV Unknown [facility] B, Adol or Pedi Unknown Completed Unive rsity of Dosage [facility] Meningococcal B, OMV Unknown Completed Univ ersity [facility] Influenza Virus Unknown Completed Universit y of Vaccine Quad .5 mL [facility] IM 6+ MO Branch (FLUZONE/FLULAVAL/FL UARIX) SARS-COV-2 COVID-19 Unknown Completed Unive rsity of PFIZER VACCINE [facility] SARS-COV-2 COVID-19 Unknown Completed Unive rsity of PFIZER VACCINE [facility] SARS-COV-2 COVID-19 Unknown Completed Unive rsity of PFIZER VACCINE [facility] SARS-COV-2 COVID-19 Unknown Completed Unive rsity of MIKE-SUCROSE VACCINE [facility] 12 YRS+, BIVALENT Branch 0.3ML, IM, (PFIZER ARITA TOP) DTAP Unknown Completed [facility] DTAP Unknown Completed [facility] DTAP Unknown Completed [facility] HIB 4 Dose Schedule Unknown Completed Unive rsity of [facility] HIB 4 Dose Schedule Unknown Completed Unive rsity of [facility] HIB 4 Dose Schedule Unknown Completed Unive rsity [facility] Hep B, Adol or Pedi Unknown Completed Unive rsity of Dosage [facility] Hep B, Adol or Pedi Unknown Completed Unive rsity of Dosage [facility] Pneumococcal 7 Unknown Completed University of Conjugate, PCV7 [facility] (Prevnar7) Branch Pneumococcal 7 Unknown Completed University of Conjugate, PCV7 [facility] (Prevnar7) Branch Polio (IPV/OPV) Unknown Completed Universit y [facility] Polio (IPV/OPV) Unknown Completed [facility] y [facility] HIB 4 Dose Schedule Unknown [facility] Completed [facility] Pneumococcal 7 Unknown Completed University of Conjugate, PCV7 [facility] (Prevnar7) Branch Polio (IPV/OPV) Unknown Completed [facility] y [facility] Varicella Unknown Completed [facility] of (varivax)(chicken [place] [facility] pox) Branch HEPATITIS A Unknown Completed [facility] Influenza Virus Unknown Completed Universit y of Vaccine [facility] HEPATITIS A Unknown Completed [facility] DTAP Unknown Completed [facility] Proquad Unknown Completed University of (MMR/VARICELLA) [facility] Branch Polio (IPV/OPV) Unknown Completed [facility] y [facility] Influenza Virus Unknown Completed Universit y of Vaccine [facility] Influenza Virus Unknown Completed Universit y of Vaccine [facility] Influenza Virus Unknown Completed [facility] Vaccine [facility] Influenza Virus Unknown Completed [facility] Vaccine [facility] Influenza Virus Unknown Completed [facility] Vaccine [facility] Influenza Virus Unknown Completed [facility] of Vaccine [facility] Influenza Virus Unknown Completed Universit y of Vaccine (3+ yrs) [facility] Meningococcal Unknown Completed [facility] Polysaccharide [facility] (groups A, C, Y and Branc h W-135) conjugate vaccine (MCV4P) TDAP Unknown Completed [facility] Influenza Virus Unknown Completed Universit y of Vaccine (3+ yrs) [facility] Unknown Completed [facility]it y of Vaccine Quad IM 3+ [facility] HPV9 Unknown Completed [facility] HPV Unknown Completed [facility] HPV9 Unknown Completed [facility] Influenza Virus Unknown Completed Universit y of Vaccine Quad IM 3+ [facility] Meningococcal Unknown Completed [facility] (groups A, C, Y and Branc h W-135) conjugate vaccine (MCV4P) Influenza Virus Unknown Completed Universit y of Vaccine Quad .5 mL [facility] 6+ MO Branch (FLUZONE/FLULAVAL/FL UARIX) Meningococcal B, OMV Unknown [facility], Adol or Pedi Unknown Completed Unive rsity of Dosage [facility] Meningococcal B, OMV Unknown Com[facility] Virus Unknown Completed [facility]it y of Vaccine Quad .5 mL [facility] 6+ MO Branch (FLUZONE/FLULAVAL/FL UARIX) SARS-COV-2 COVID-19 Unknown Completed Unive rsity of PFIZER VACCINE [facility] SARS-COV-2 COVID-19 Unknown Completed Unive rsity of PFIZER VACCINE [facility] SARS-COV-2 COVID-19 Unknown Completed Unive rsity of PFIZER VACCINE [facility] SARS-COV-2 COVID-19 Unknown Completed Unive rsity of MIKE-SUCROSE VACCINE [facility] 12 YRS+, BIVALENT Branch 0.3ML, IM, (PFIZER ARITA TOP) DTAP Unknown Completed [facility] DTAP Unknown Completed [facility] DTAP Unknown Completed [facility] HIB 4 Dose Schedule Unknown Completed Unive rsity of [facility] HIB 4 Dose Schedule Unknown Completed Unive rsity [facility] HIB 4 Dose Schedule Unknown Completed [facility] Hep B, Adol or Pedi Unknown Completed Unive rsity of Dosage [facility] Hep B, Adol or Pedi Unknown Completed Unive rsity of Dosage [facility] Pneumococcal 7 Unknown Completed University of Conjugate, PCV7 [facility] ical (Prevnar7) Branch Pneumococcal 7 Unknown Completed [facility] Conjugate, PCV7 [facility] (Prevnar7) Branch Polio (IPV/OPV) Unknown Completed Universit y [facility] Polio (IPV/OPV) Unknown Completed [facility]it y [facility] HIB 4 Dose Schedule Unknown [facility] Completed [facility] Pneumococcal 7 Unknown Completed University of Conjugate, PCV7 [facility] (Prevnar7) Branch Polio (IPV/OPV) Unknown Completed Universit y [facility] Varicella Unknown Completed University (varivax)(chicken [place] [facility] pox) Branch HEPATITIS A Unknown Completed [facility] Influenza Virus Unknown Completed Universit y of Vaccine [facility] HEPATITIS A Unknown Completed [facility] DTAP Unknown Completed [facility] Proquad Unknown Completed University of (MMR/VARICELLA) [facility] Branch Polio (IPV/OPV) Unknown Completed Universit y [facility] Influenza Virus Unknown Completed [facility]it y of Vaccine [facility] Influenza Virus Unknown Completed [facility]it y of Vaccine [facility] Influenza Virus Unknown Completed [facility] of Vaccine [facility] Influenza Virus Unknown Completed [facility] of Vaccine [facility] Influenza Virus Unknown Completed [facility] y of Vaccine [facility] Influenza Virus Unknown Completed [facility] y of Vaccine [facility] Influenza Virus Unknown Completed Universit y of Vaccine (3+ yrs) [facility] Meningococcal Unknown Completed [facility] Polysaccharide [place] [facility] (groups A, C, Y and Branc h W-135) conjugate vaccine (MCV4P) TDAP Unknown Completed [facility] Influenza Virus Unknown Completed Universit y of Vaccine (3+ yrs) [facility] Influenza Virus Unknown Completed Universit y of Vaccine Quad IM 3+ [facility] HPV9 Unknown Completed [facility] HPV Unknown Completed [facility] HPV9 Unknown Completed [facility] Influenza Virus Unknown Completed Universit y of Vaccine Quad IM 3+ [facility] Meningococcal Unknown Completed [facility] of Polysaccharide [place] [facility] (groups A, C, Y and Branc h W-135) conjugate vaccine (MCV4P) Influenza Virus Unknown Completed Universit y of Vaccine Quad .5 mL [facility] IM 6+ MO Branch (FLUZONE/FLULAVAL/FL UARIX) Meningococcal B, OMV Unknown Completed Univ ersity of [facility] Hep B, Adol or Pedi Unknown Completed Unive rsity of Dosage [facility] Meningococcal B, OMV Unknown Completed Univ ersity of [facility] Influenza Virus Unknown Completed Universit y of Vaccine Quad .5 mL [facility] IM 6+ MO Branch (FLUZONE/FLULAVAL/FL UARIX) SARS-COV-2 COVID-19 Unknown Completed Unive rsity of PFIZER VACCINE [facility] Branch SARS-COV-2 COVID-19 Unknown Completed Unive rsity of PFIZER VACCINE [facility] Branch SARS-COV-2 COVID-19 Unknown Completed Unive rsity of PFIZER VACCINE [facility] Branch SARS-COV-2 COVID-19 Unknown Completed Unive rsity of MIKE-SUCROSE VACCINE [facility] 12 YRS+, BIVALENT Branch 0.3ML, IM, (PFIZER ARITA TOP) HEPATITIS A Unknown Completed [facility] Influenza Virus Unknown Completed [facility]it y of Vaccine [facility] HEPATITIS A Unknown Completed [facility] DTAP Unknown Completed [facility] Proquad Unknown Completed University of (MMR/VARICELLA) [facility] Polio (IPV/OPV) Unknown Completed Universit y of [facility] Influenza Virus Unknown Completed [facility]it y of Vaccine [facility] Influenza Virus Unknown Completed [facility] y of Vaccine [facility] Influenza Virus Unknown Completed [facility] y of Vaccine [facility] Influenza Virus Unknown Completed [facility] y of Vaccine [facility] Influenza Virus Unknown Completed [facility]it y of Vaccine [facility] Influenza Virus Unknown Completed [facility]it y of Vaccine [facility] Influenza Virus Unknown Completed Universit y of Vaccine (3+ yrs) [facility] dical Branch Meningococcal Unknown Completed [facility] of [facility] (groups A, C, Y and Branc h W-135) conjugate vaccine (MCV4P) TDAP Unknown Completed [facility] Influenza Virus Unknown Completed Universit y of Vaccine (3+ yrs) [facility] dical [place] Influenza Virus Unknown Completed Universit y of Vaccine Quad IM 3+ [facility] Branch HPV9 Unknown Completed [facility] HPV Unknown Completed [facility] HPV9 Unknown Completed [facility] Influenza Virus Unknown Completed [facility] y of Vaccine Quad IM 3+ [facility] [place] [facility] Meningococcal Unknown Completed University of Polysaccharide [facility] (groups A, C, Y and Branc h W-135) conjugate vaccine (MCV4P) Influenza Virus Unknown Completed Universit y of Vaccine Quad .5 mL [facility] IM 6+ MO Branch (FLUZONE/FLULAVAL/FL UARIX) Meningococcal B, OMV Unknown Completed Univ ersity [facility] Hep B, Adol or Pedi Unknown Completed Unive rsity of Dosage [facility] Meningococcal B, OMV Unknown Completed Univ ersity of [facility] Influenza Virus Unknown Completed Universit y of Vaccine Quad .5 mL [facility] IM 6+ MO Branch (FLUZONE/FLULAVAL/FL UARIX) SARS-COV-2 COVID-19 Unknown Completed Unive rsity of PFIZER VACCINE [facility] Branch SARS-COV-2 COVID-19 Unknown Completed Unive rsity of PFIZER VACCINE [facility] Branch SARS-COV-2 COVID-19 Unknown Completed Unive rsity of PFIZER VACCINE [facility] SARS-COV-2 COVID-19 Unknown Completed Unive rsity of MIKE-SUCROSE VACCINE [facility] 12 YRS+, BIVALENT Branch 0.3ML, IM, (PFIZER ARITA TOP) HEPATITIS A Unknown Completed [facility] Influenza Virus Unknown Completed Universit y of Vaccine [facility] HEPATITIS A Unknown Completed [facility] DTAP Unknown Completed [facility] Proquad Unknown Completed University of (MMR/VARICELLA) [facility] Polio (IPV/OPV) Unknown Completed Universit y of [facility] Influenza Virus Unknown Completed [facility]it y of Vaccine [facility] Influenza Virus Unknown Completed [facility] y of Vaccine [facility] Influenza Virus Unknown Completed [facility] y of Vaccine [facility] Influenza Virus Unknown Completed [facility] y of Vaccine [facility] Influenza Virus Unknown Completed [facility]it y of Vaccine [facility] Influenza Virus Unknown Completed [facility]it y of Vaccine [facility] Influenza Virus Unknown Completed Universit y of Vaccine (3+ yrs) [facility] dical Branch Meningococcal Unknown Completed University of Polysaccharide [facility] (groups A, C, Y and Branc h W-135) conjugate vaccine (MCV4P) TDAP Unknown Completed [facility] Influenza Virus Unknown Completed Universit y of Vaccine (3+ yrs) [facility] Influenza Virus Unknown Completed [facility]it y of Vaccine Quad IM 3+ [facility] Branch HPV9 Unknown Completed [facility] HPV Unknown Completed [facility] HPV9 Unknown Completed [facility] Influenza Virus Unknown Completed Universit y of Vaccine Quad IM 3+ [facility] Meningococcal Unknown Completed [facility] Polysaccharide [facility] (groups A, C, Y and Branc h W-135) conjugate vaccine (MCV4P) Influenza Virus Unknown Completed Universit y of Vaccine Quad .5 mL [facility] IM 6+ MO Branch (FLUZONE/FLULAVAL/FL UARIX) Meningococcal B, OMV Unknown Completed Univ ersity [facility] Hep B, Adol or Pedi Unknown Completed Unive rsity of Dosage [facility] Meningococcal B, OMV Unknown Completed Univ ersity [facility] Influenza Virus Unknown Completed Universit y of Vaccine Quad .5 mL [facility] IM 6+ MO Branch (FLUZONE/FLULAVAL/FL UARIX) SARS-COV-2 COVID-19 Unknown Completed Unive rsity of PFIZER VACCINE [facility] SARS-COV-2 COVID-19 Unknown Completed Unive rsity of PFIZER VACCINE [facility] SARS-COV-2 COVID-19 Unknown Completed Unive rsity of PFIZER VACCINE [facility] SARS-COV-2 COVID-19 Unknown Completed Unive rsity of MIKE-SUCROSE VACCINE [facility] 12 YRS+, BIVALENT Branch 0.3ML, IM, (PFIZER ARITA TOP) HEPATITIS A Unknown Completed [facility] Influenza Virus Unknown Completed Universit y of [facility] HEPATITIS A Unknown Completed [facility] DTAP Unknown Completed [facility] Proquad Unknown Completed University (MMR/VARICELLA) [facility] Polio (IPV/OPV) Unknown Completed Universit y of [facility] Influenza Virus Unknown Completed Universit y of Vaccine [facility] Influenza Virus Unknown Completed [facility]it y of Vaccine [facility] Influenza Virus Unknown Completed Universit y of Vaccine [facility] Influenza Virus Unknown Completed Universit y of Vaccine [facility] Influenza Virus Unknown Completed [facility]it y of Vaccine [facility] Influenza Virus Unknown Completed Universit y of Vaccine [facility] Influenza Virus Unknown Completed Universit y of Vaccine (3+ yrs) [facility] dical [place] Meningococcal Unknown Completed [facility] Polysaccharide [facility] (groups A, C, Y and Branc h W-135) conjugate vaccine (MCV4P) TDAP Unknown Completed [facility] Influenza Virus Unknown Completed Universit y of Vaccine (3+ yrs) [facility] dical Branch Influenza Virus Unknown Completed Universit y of Vaccine Quad IM 3+ [facility] HPV9 Unknown Completed [facility] HPV Unknown Completed [facility] HPV9 Unknown Completed [facility] Influenza Virus Unknown Completed Universit y of Vaccine Quad IM 3+ [facility] Meningococcal Unknown Completed [facility] (groups A, C, Y and Branc h W-135) conjugate vaccine (MCV4P) Influenza Virus Unknown Completed Universit y of Vaccine Quad .5 mL [facility] IM 6+ MO Branch (FLUZONE/FLULAVAL/FL UARIX) Meningococcal B, OMV Unknown Completed Univ ersity of [facility] Hep B, Adol or Pedi Unknown Completed Unive rsity of Dosage [facility] Meningococcal B, OMV Unknown Completed Univ ersity [facility] Influenza Virus Unknown Completed Universit y of Vaccine Quad .5 mL [facility] 6+ MO Branch (FLUZONE/FLULAVAL/FL UARIX) SARS-COV-2 COVID-19 Unknown Completed Unive rsity of PFIZER VACCINE [facility] Branch SARS-COV-2 COVID-19 Unknown Completed Unive rsity of PFIZER VACCINE [facility] SARS-COV-2 COVID-19 Unknown Completed Unive rsity of PFIZER VACCINE [facility] SARS-COV-2 COVID-19 Unknown Completed Unive rsity of MIKE-SUCROSE VACCINE [facility] 12 YRS+, BIVALENT Branch 0.3ML, IM, (PFIZER ARITA TOP) HEPATITIS A Unknown Completed [facility] Influenza Virus Unknown Completed Universit y of Vaccine [facility] HEPATITIS A Unknown Completed [facility] DTAP Unknown Completed [facility] Proquad Unknown Completed University of (MMR/VARICELLA) [facility] Polio (IPV/OPV) Unknown Completed Universit y of [facility] Influenza Virus Unknown Completed [facility]it y of Vaccine [facility] Influenza Virus Unknown Completed Universit y of Vaccine [facility] Influenza Virus Unknown Completed Universit y of Vaccine [facility] Influenza Virus Unknown Completed Universit y of Vaccine [facility] Influenza Virus Unknown Completed Universit y of Vaccine [facility] Influenza Virus Unknown Completed Universit y of Vaccine [facility] Influenza Virus Unknown Completed Universit y of Vaccine (3+ yrs) [facility] Meningococcal Unknown Completed [facility] Polysaccharide [facility] (groups A, C, Y and Branc h W-135) conjugate vaccine (MCV4P) TDAP Unknown Completed [facility] Influenza Virus Unknown Completed Universit y of Vaccine (3+ yrs) [facility] Influenza Virus Unknown Completed Universit y of Vaccine Quad IM 3+ [facility] HPV9 Unknown Completed [facility] HPV Unknown Completed [facility] HPV9 Unknown Completed [facility] Influenza Virus Unknown Completed Universit y of Vaccine Quad IM 3+ [facility] Meningococcal Unknown Completed [facility] Polysaccharide [facility] (groups A, C, Y and Branc h W-135) conjugate vaccine (MCV4P) Influenza Virus Unknown Completed Universit y of Vaccine Quad .5 mL [facility] IM 6+ MO Branch (FLUZONE/FLULAVAL/FL UARIX) Meningococcal B, OMV Unknown [facility] B, Adol or Pedi Unknown Completed Unive rsity of Dosage [facility] Meningococcal B, OMV Unknown Completed [facility] Influenza Virus Unknown Completed Universit y of Vaccine Quad .5 mL [facility] 6+ MO Branch (FLUZONE/FLULAVAL/FL UARIX) SARS-COV-2 COVID-19 Unknown Completed Unive rsity of PFIZER VACCINE [facility] SARS-COV-2 COVID-19 Unknown Completed Unive rsity of PFIZER VACCINE [facility] SARS-COV-2 COVID-19 Unknown Completed Unive rsity of PFIZER VACCINE [facility] SARS-COV-2 COVID-19 Unknown Completed Unive rsity of MIKE-SUCROSE VACCINE [facility] 12 YRS+, BIVALENT Branch 0.3ML, IM, (PFIZER ARITA TOP) HEPATITIS A Unknown Completed [facility] Influenza Virus Unknown Completed Universit y of Vaccine [facility] HEPATITIS A Unknown Completed [facility] DTAP Unknown Completed [facility] Proquad Unknown Completed University (MMR/VARICELLA) [facility] Polio (IPV/OPV) Unknown Completed Universit y [facility] Influenza Virus Unknown Completed Universit y of Vaccine [facility] Influenza Virus Unknown Completed Universit y of Vaccine [facility] Influenza Virus Unknown Completed Universit y of Vaccine [facility] Influenza Virus Unknown Completed Universit y of Vaccine [facility] Influenza Virus Unknown Completed Universit y of Vaccine [facility] Influenza Virus Unknown Completed Universit y of Vaccine [facility] Influenza Virus Unknown Completed Universit y of Vaccine (3+ yrs) [facility] Meningococcal Unknown Completed [facility] Polysaccharide [facility] (groups A, C, Y and Branc h W-135) conjugate vaccine (MCV4P) TDAP Unknown Completed [facility] Influenza Virus Unknown Completed Universit y of Vaccine (3+ yrs) [facility] Influenza Virus Unknown Completed Universit y of Vaccine Quad IM 3+ [facility] HPV9 Unknown Completed [facility] HPV Unknown Completed [facility] HPV9 Unknown Completed [facility] Influenza Virus Unknown Completed Universit y of Vaccine Quad IM 3+ [facility] Meningococcal Unknown Completed [facility] (groups A, C, Y and Branc h W-135) conjugate vaccine (MCV4P) Influenza Virus Unknown Completed Universit y of Vaccine Quad .5 mL [facility] 6+ MO Branch (FLUZONE/FLULAVAL/FL UARIX) Meningococcal B, OMV Unknown Completed Univ ersity [facility] Hep B, Adol or Pedi Unknown Completed Unive rsity of Dosage [facility] Meningococcal B, OMV Unknown Completed [facility] Influenza Virus Unknown Completed Universit y of Vaccine Quad .5 mL [facility] 6+ MO Branch (FLUZONE/FLULAVAL/FL UARIX) SARS-COV-2 COVID-19 Unknown Completed Unive rsity of PFIZER VACCINE [facility] SARS-COV-2 COVID-19 Unknown Completed Unive rsity of PFIZER VACCINE [facility] SARS-COV-2 COVID-19 Unknown Completed Unive rsity of PFIZER VACCINE [facility] SARS-COV-2 COVID-19 Unknown Completed Unive rsity of MIKE-SUCROSE VACCINE [facility] 12 YRS+, BIVALENT Branch 0.3ML, IM, (PFIZER ARITA TOP) Vital Signs Vital Name Observation Time Observation Value Comments Source Systolic blood 2023-04-27 117 mm[Hg] University of pressure 15:01:00 [facility] Diastolic blood 2023-04-27 78 mm[Hg] University o f pressure 15:01:00 [facility] Heart rate 2023-04-27 126 /min University of 15:01:00 [place] [facility] Body temperature 2023-04-27 36.83 [place] University of :00 [facility] Respiratory rate 2023-04-27 16 /min University of 15::00 [facility] Body height 2023-04-27 160 cm University of : [facility] Body weight 2023-04-27 56.337 kg University of : [facility] BMI 2023-04-27 22.00 kg/m2 University of :00 [facility] Oxygen saturation 2023-04-27 98 /min University of in Arterial blood 15::00 [facility] [place] by Pulse oximetry Branch Systolic blood 2023-04-25 115 mm[Hg] University of pressure 22:01:00 [facility] Diastolic blood 2023-04-25 84 mm[Hg] University o f pressure 22:01:00 [facility] Heart rate 2023-04-25 108 /min University of :00 [facility] Body temperature 2023-04-25 36.61 [place] University of ::00 [facility] Respiratory rate 2023-04-25 19 /min University of ::00 [facility] Body height 2023-04-25 160 cm University of :00 [facility] Body weight 2023-04-25 57.607 kg University of :00 [facility] BMI 2023-04-25 22.50 kg/m2 University of ::00 [facility] Oxygen saturation 2023-04-25 100 /min University of in Arterial blood 22::00 [facility] [place] by Pulse oximetry Branch Body temperature 2022-12-15 36.44 Linda University of :53:00 [facility] Body weight 2022-12-15 52.39 kg University of 15:53:00 [facility] Systolic blood 2022-11-25 109 mm[Hg] University of pressure 13:50:00 [facility] Diastolic blood 2022-11-25 76 mm[Hg] University o f pressure 13:50:00 [facility] Heart rate 2022-11-25 89 /min University of 13:50:00 [facility] Respiratory rate 2022-11-25 18 /min University of 13:50:00 [facility] Body height 2022-11-25 160 cm University of 13:50:00 [facility] Body weight 2022-11-25 53.071 kg University of 13:50:00 [facility] BMI 2022-11-25 20.73 kg/m2 University of 13:50:00 [facility] Body temperature 2022-06-16 35.83 [place] University of 17:18:00 [facility] Body height 2022-06-16 160 cm University of 17:18:00 [facility] Body weight 2022-06-16 50.44 kg University of 17:18:00 [facility] BMI 2022-06-16 19.70 kg/m2 University of 17:18:00 [facility] Systolic blood 2022-06-01 94 mm[Hg] erp informed, [place] o f pressure 05:18:00 asymptomatic [facility] Diastolic blood 2022-06-01 71 mm[Hg] erp informed, University of pressure 05:18:00 asymptomatic [facility] Heart rate 2022-06-01 85 /min University of 05:18:00 [facility] Respiratory rate 2022-06-01 18 /min University of 05:18:00 [facility] Oxygen saturation 2022-06-01 100 /min [facility] in Arterial blood 05:18:00 [facility] by Pulse oximetry [place] Body temperature 2022-06-01 36.5 Linda University of 04:31:00 [facility] Body height 2022-06-01 160 cm University of 04:31:00 [facility] Body weight 2022-06-01 51.256 kg University of 04:31:00 [facility] BMI 2022-06-01 20.02 kg/m2 University of 04:31:00 [facility] Body temperature 2022-05-19 36.28 [place] University of 18:10:00 [facility] Body weight 2022-05-19 51.256 kg University of 18:10:00 [facility] BMI 2022-05-19 20.02 kg/m2 University of 18:10:00 [facility] Body temperature 2022-04-21 36.22 [place] University of 20:32:00 [facility] Body height 2022-04-21 160 cm University of 20:32:00 [facility] Body weight 2022-04-21 50.349 kg University of 20:32:00 [facility] BMI 2022-04-21 19.66 kg/m2 University of 20:32:00 [facility] Systolic blood 2022-04-11 110 mm[Hg] University of pressure 03:10:00 [facility] [place] [facility] Diastolic blood 2022-04-11 73 mm[Hg] University o f pressure 03:10:00 [facility] Heart rate 2022-04-11 88 /min University of 03:10:00 [facility] Respiratory rate 2022-04-11 18 /min University of 03:10:00 [facility] Oxygen saturation 2022-04-11 100 /min University of in Arterial blood 03:10:00 [facility] [place] by Pulse oximetry Branch Body temperature 2022-04-10 36.28 [place] University of 22:10:00 [facility] Body weight 2022-04-10 49.896 kg University of 22:10:00 [facility] BMI 2022-04-10 19.80 kg/m2 University of 22:10:00 [facility] Systolic blood 2022-04-10 108 mm[Hg] University of pressure 21:48:00 [facility] Diastolic blood 2022-04-10 75 mm[Hg] University o f pressure 21:48:00 [facility] Heart rate 2022-04-10 127 /min University of 21:48:00 [facility] Body temperature 2022-04-10 36.61 [place] University of 21:48:00 [facility] Respiratory rate 2022-04-10 17 /min University of 21:48:00 [facility] Body height 2022-04-10 158.8 cm University of 21:48:00 [facility] Body weight 2022-04-10 49.896 kg University of 21:48:00 [facility] BMI 2022-04-10 19.80 kg/m2 University of 21:48:00 [facility] Oxygen saturation 2022-04-10 98 /min University of in Arterial blood 21:48:00 [place] [facility] Pulse oximetry [facility] Systolic blood 2022-04-07 104 mm[Hg] University of pressure 18:00:00 [facility] Diastolic blood 2022-04-07 58 mm[Hg] University o f pressure 18:00:00 [facility] Heart rate 2022-04-07 64 /min University of 18:00:00 [facility] Body temperature 2022-04-07 36.39 [place] University of 18:00:00 [facility] Respiratory rate 2022-04-07 18 /min University of 18:00:00 [facility] Oxygen saturation 2022-04-07 96 /min University of in Arterial blood 18:00:00 [place] [facility] Pulse oximetry [facility] Body height 2022-04-04 161.3 cm University of 23:00:18 [facility] Body weight 2022-04-04 50.349 kg University of 23:00:18 [facility] BMI 2022-04-04 19.35 kg/m2 University of 23:00:18 [facility] Heart rate 2022-04-04 109 /min University of 21:03:00 [facility] Body temperature 2022-04-04 37.72 [place] University of 21:03:00 [facility] Respiratory rate 2022-04-04 18 /min University of :03:00 [facility] Oxygen saturation 2022-04-04 95 /min University of in Arterial blood 21:03:00 [facility] by Pulse oximetry Branch Systolic blood 2022-04-04 98 mm[Hg] University of pressure 21:00:00 [facility] Diastolic blood 2022-04-04 64 mm[Hg] University o f pressure 21:00:00 [facility] Body height 2022-04-04 162.6 cm University of 17:44:00 [facility] Body weight 2022-04-04 50.349 kg University of 17:44:00 [facility] BMI 2022-04-04 19.05 kg/m2 University of 17:44:00 [facility] Systolic blood 2022-04-01 118 mm[Hg] University of pressure 06:00:00 [facility] Diastolic blood 2022-04-01 92 mm[Hg] University o f pressure 06:00:00 [facility] Heart rate 2022-04-01 78 /min University of 06:00:00 [facility] Respiratory rate 2022-04-01 16 /min University of 06:00:00 [facility] Oxygen saturation 2022-04-01 98 /min University of in Arterial blood 06:00:00 [facility] [place] by Pulse oximetry [facility] Body height 2022-04-01 160 cm University of 03:48:00 [facility] Body weight 2022-04-01 56.7 kg University of 03:48:00 [facility] BMI 2022-04-01 22.14 kg/m2 University of 03:48:00 [facility] Height 2020-09-25 165.1 CM 23:56:00 Weight 2020-09-25 2.69 KG 23:56:00 Systolic blood 2023-04-18 117 mm[Hg] University of pressure 19:50:00 [facility] Diastolic blood 2023-04-18 79 mm[Hg] University o f pressure 19:50:00 [facility] Heart rate 2023-04-18 104 /min University of 19:50:00 [facility] Respiratory rate 2023-04-18 18 /min University of 19:50:00 [facility] Body height 2023-04-18 160 cm University of 19:50:00 [facility] Body weight 2023-04-18 57.335 kg University of 19:50:00 [facility] BMI 2023-04-18 22.39 kg/m2 University of 19:50:00 [facility] Systolic blood 2023-03-30 107 mm[Hg] University of pressure 19:30:00 [facility] Diastolic blood 2023-03-30 75 mm[Hg] University o f pressure 19:30:00 [facility] Heart rate 2023-03-30 109 /min University of 19:30:00 [facility] Respiratory rate 2023-03-30 18 /min University of 19:30:00 [facility] Body height 2023-03-30 160 cm University of 19:30:00 [facility] Body weight 2023-03-30 55.43 kg University of 19:30:00 [facility] BMI 2023-03-30 21.65 kg/m2 University of 19:30:00 [facility] Systolic blood 2023-03-16 108 mm[Hg] University of pressure 19:30:00 [facility] Diastolic blood 2023-03-16 76 mm[Hg] University o f pressure 19:30:00 [facility] Heart rate 2023-03-16 92 /min University of 19:30:00 [facility] Respiratory rate 2023-03-16 18 /min University of 19:30:00 [facility] Body height 2023-03-16 160 cm University of 19:30:00 [facility] Body weight 2023-03-16 54.341 kg University of 19:30:00 [facility] BMI 2023-03-16 21.22 kg/m2 University of 19:30:00 [facility] Body temperature 2022-12-15 36.44 [place] University of 15:53:00 [facility] Body weight 2022-12-15 52.39 kg University of 15:53:00 [facility] Systolic blood 2022-12-05 120 mm[Hg] University of pressure 13:53:00 [facility] Diastolic blood 2022-12-05 79 mm[Hg] University o f pressure 13:53:00 [facility] Heart rate 2022-12-05 95 /min University of 13:53:00 [facility] Respiratory rate 2022-12-05 18 /min University of 13:53:00 [facility] Body height 2022-12-05 160 cm University of 13:53:00 [facility] Body weight 2022-12-05 53.434 kg University of 13:53:00 [facility] BMI 2022-12-05 20.87 kg/m2 University of 13:53:00 [facility] Systolic blood 2022-11-25 109 mm[Hg] University of pressure 13:50:00 [facility] Diastolic blood 2022-11-25 76 mm[Hg] University o f pressure 13:50:00 [facility] Heart rate 2022-11-25 89 /min University of 13:50:00 [facility] Respiratory rate 2022-11-25 18 /min University of 13:50:00 [facility] Body height 2022-11-25 160 cm University of 13:50:00 [facility] Body weight 2022-11-25 53.071 kg University of 13:50:00 [facility] BMI 2022-11-25 20.73 kg/m2 University of 13:50:00 [facility] Systolic blood 2022-10-31 126 mm[Hg] University of pressure 14:07:00 [facility] Diastolic blood 2022-10-31 79 mm[Hg] University o f pressure 14:07:00 [facility] Heart rate 2022-10-31 93 /min University of 14:07:00 [facility] Respiratory rate 2022-10-31 18 /min University of 14:07:00 [facility] Body height 2022-10-31 160 cm University of 14:07:00 [facility] Body weight 2022-10-31 51.256 kg University of 14:07:00 [facility] BMI 2022-10-31 20.02 kg/m2 University of 14:07:00 [facility] Systolic blood 2022-09-19 108 mm[Hg] University of pressure 13:00:00 [facility] Diastolic blood 2022-09-19 83 mm[Hg] University o f pressure 13:00:00 [facility] Heart rate 2022-09-19 88 /min University of 13:00:00 [facility] Respiratory rate 2022-09-19 18 /min University of 13:00:00 [facility] Body height 2022-09-19 160 cm University of 13:00:00 [facility] Body weight 2022-09-19 51.256 kg University of 13:00:00 [facility] BMI 2022-09-19 20.02 kg/m2 University of 13:00:00 [facility] Systolic blood 2022-08-22 117 mm[Hg] University of pressure 15:53:00 [facility] Diastolic blood 2022-08-22 80 mm[Hg] University o f pressure 15:53:00 [facility] Heart rate 2022-08-22 88 /min University of 15:53:00 [facility] Respiratory rate 2022-08-22 18 /min University of 15:53:00 [facility] Body height 2022-08-22 160 cm University of 15:53:00 [facility] Body weight 2022-08-22 50.803 kg University of 15:53:00 [facility] BMI 2022-08-22 19.84 kg/m2 University of 15:53:00 [facility] Systolic blood 2022-07-25 100 mm[Hg] University of pressure 14:23:00 [facility] Diastolic blood 2022-07-25 78 mm[Hg] University o f pressure 14:23:00 [facility] Heart rate 2022-07-25 107 /min University of 14:23:00 [facility] Respiratory rate 2022-07-25 18 /min University of 14:23:00 [facility] Body height 2022-07-25 160 cm University of 14:23:00 [facility] Body weight 2022-07-25 50.803 kg University of 14:23:00 [facility] BMI 2022-07-25 19.84 kg/m2 University of 14:23:00 [facility] Body temperature 2022-06-16 35.83 [place] University of 17:18:00 [facility] Body height 2022-06-16 160 cm University of 17:18:00 [facility] Body weight 2022-06-16 50.44 kg University of 17:18:00 [facility] BMI 2022-06-16 19.70 kg/m2 University of 17:18:00 [facility] Systolic blood 2022-06-16 113 mm[Hg] University of pressure 16:33:00 [facility] Diastolic blood 2022-06-16 79 mm[Hg] University o f pressure 16:33:00 [facility] Heart rate 2022-06-16 112 /min University of 16:33:00 [facility] Respiratory rate 2022-06-16 18 /min University of 16:33:00 [facility] Body height 2022-06-16 160 cm University of 16:33:00 [facility] Body weight 2022-06-16 51.256 kg University of 16:33:00 [facility] BMI 2022-06-16 20.02 kg/m2 University of 16:33:00 [facility] Systolic blood 2022-06-13 117 mm[Hg] University of pressure 16:37:00 [facility] Diastolic blood 2022-06-13 85 mm[Hg] University o f pressure 16:37:00 [facility] Heart rate 2022-06-13 118 /min University of 16:37:00 [facility] Respiratory rate 2022-06-13 18 /min University of 16:37:00 [facility] Body height 2022-06-13 160 cm University of 16:37:00 [facility] Body weight 2022-06-13 50.803 kg University of 16:37:00 [facility] BMI 2022-06-13 19.84 kg/m2 University of 16:37:00 [facility] Oxygen saturation 2022-06-01 100 /min [facility] in Arterial blood 05:18:00 [facility] by Pulse oximetry [place] Body temperature 2022-06-01 36.5 [place] University of 04:31:00 [facility] Systolic blood 2022-05-19 124 mm[Hg] University of pressure 16:06:00 [facility] Diastolic blood 2022-05-19 85 mm[Hg] University o f pressure 16:06:00 [facility] Heart rate 2022-05-19 103 /min University of 16:06:00 [facility] Respiratory rate 2022-05-19 18 /min University of 16:06:00 [facility] Body height 2022-05-19 160 cm University of 16:06:00 [facility] Body weight 2022-05-19 51.256 kg University of 16:06:00 [facility] BMI 2022-05-19 20.02 kg/m2 University of 16:06:00 [facility] Systolic blood 2022-05-02 115 mm[Hg] University of pressure 13:53:00 [facility] Diastolic blood 2022-05-02 80 mm[Hg] University o f pressure 13:53:00 [facility] Heart rate 2022-05-02 103 /min University of 13:53:00 [facility] Respiratory rate 2022-05-02 18 /min University of 13:53:00 [facility] Body height 2022-05-02 160 cm University of 13:53:00 [facility] Body weight 2022-05-02 51.256 kg University of 13:53:00 [facility] BMI 2022-05-02 20.02 kg/m2 University of 13:53:00 [facility] Body temperature 2022-04-21 36.22 [place] University of 20:32:00 [facility] Body height 2022-04-21 160 cm University of 20:32:00 [facility] Body weight 2022-04-21 50.349 kg University of 20:32:00 [facility] BMI 2022-04-21 19.66 kg/m2 University of 20:32:00 [facility] Systolic blood 2022-04-21 104 mm[Hg] University of pressure 15:04:00 [facility] Diastolic blood 2022-04-21 71 mm[Hg] University o f pressure 15:04:00 [facility] Heart rate 2022-04-21 110 /min University of 15:04:00 [facility] Respiratory rate 2022-04-21 18 /min University of 15:04:00 [facility] Body height 2022-04-21 157.5 cm University of 15:04:00 [facility] Body weight 2022-04-21 49.896 kg University of 15:04:00 [facility] BMI 2022-04-21 20.12 kg/m2 University of 15:04:00 [facility] Systolic blood 2022-04-11 110 mm[Hg] University of pressure 03:10:00 [facility] Diastolic blood 2022-04-11 73 mm[Hg] University o f pressure 03:10:00 [facility] Heart rate 2022-04-11 88 /min University of 03:10:00 [facility] Respiratory rate 2022-04-11 18 /min University of 03:10:00 [facility] Oxygen saturation 2022-04-11 100 /min University of in Arterial blood 03:10:00 [facility] by Pulse oximetry Branch Body temperature 2022-04-10 36.28 [place] University of 22:10:00 [facility] Body weight 2022-04-10 49.896 kg University of 22:10:00 [facility] BMI 2022-04-10 19.80 kg/m2 University of 22:10:00 [facility] Body height 2022-04-10 158.8 cm University of 21:48:00 [facility] Systolic blood 2022-04-06 114 mm[Hg] University of pressure 13:00:00 [facility] Diastolic blood 2022-04-06 71 mm[Hg] University o f pressure 13:00:00 [facility] Heart rate 2022-04-06 92 /min University of 13:00:00 [facility] Body temperature 2022-04-06 36.78 [place] University of 13:00:00 [facility] Respiratory rate 2022-04-06 20 /min University of 13:00:00 [facility] Oxygen saturation 2022-04-06 96 /min University of in Arterial blood 13:00:00 [facility] by Pulse oximetry Branch Body height 2022-04-04 161.3 cm University of 23:00:18 [facility] Body weight 2022-04-04 50.349 kg University of 23:00:18 [facility] BMI 2022-04-04 19.35 kg/m2 University of 23:00:18 [facility] Systolic blood 2022-03-28 116 mm[Hg] University of pressure 14:54:00 [facility] Diastolic blood 2022-03-28 87 mm[Hg] University o f pressure 14:54:00 [facility] Heart rate 2022-03-28 113 /min University of 14:54:00 [facility] Respiratory rate 2022-03-28 18 /min [facility] 14:54:00 [facility] Body height 2022-03-28 160 cm [facility] 14:54:00 [facility] Body weight 2022-03-28 51.71 kg [facility] 14:54:00 [facility] BMI 2022-03-28 20.19 kg/m2 [facility] 14:54:00 [facility] Body temperature 2022-02-24 37 Linda [facility] 18:37:00 [facility] Body weight 2022-02-24 51.801 kg [facility] 18:37:00 [facility] BMI 2022-02-24 20.23 kg/m2 [facility] 18:37:00 [facility] Systolic blood 2022-02-21 133 mm[Hg] [facility] pressure 12:51:00 [facility] Diastolic blood 2022-02-21 49 mm[Hg] [facility] pressure 12:51:00 [facility] Heart rate 2022-02-21 108 /min [facility] 12:51:00 [facility] Respiratory rate 2022-02-21 18 /min [facility] 12:51:00 [facility] Body height 2022-02-21 160 cm [facility] 12:51:00 [facility] Oxygen saturation 2022-01-24 98 /min [facility] in Arterial blood 00:45:00 [place] [facility] by Pulse oximetry [place] Head 2009-07-13 51 cm [facility] Occipital-frontal 18:51:00 [facility] torito circumference by [place] Tape measure Procedures Procedure Date / Time Performing Clinician Source Performed CONSENT/REFUSAL FOR 2023-04-25 21:52:57 Doctor Fidel [facility] DIAGNOSIS AND TREATMENT [place] [facility] TEST, URINE 2023-03-16 20:47:00 Susan Valverde [facility] AUTHORIZATION FOR RELEASE 2023-03-16 05:01:00 Doctor Jadeigned, [facility] [place] [facility] AUTHORIZATION FOR RELEASE 2023-03-16 05:01:00 Doctor Rosamariassigned, [facility] [place] [facility] [place] XR PELVIS 3+ VW 2022-12-15 15:31:00 Arnaldo, [facility] XR PELVIS 3+ VW 2022-12-15 15:31:00 Arnaldo [facility] SOAKING PITS SUPERVISOR CLINIC ULTRASOUND 2022-11-25 05:01:00 Doctor Fidel, [facility] [place] [facility] SOAKING PITS SUPERVISOR CLINIC ULTRASOUND 2022-11-25 05:01:00 Doctor Rosamariassigned, [facility] [place] [facility] PATIENT FINANCIAL 2022-10-31 14:21:09 Doctor Rosamariassigned, [facility] POLICY [place] [facility] PATIENT FINANCIAL 2022-10-31 14:21:09 Doctor Fidel, [facility] POLICY [place] [facility] AUTHORIZATION FOR RELEASE 2022-10-07 05:01:00 Doctor Fidel, [facility] [place] [facility] AUTHORIZATION FOR RELEASE 2022-10-07 05:01:00 Doctor Fidel, [facility] [place] [facility] AUTHORIZATION FOR RELEASE 2022-09-06 06:01:00 Doctor Fidel [facility] [place] [facility] AUTHORIZATION FOR RELEASE 2022-09-06 06:01:00 Doctor Parra [facility] [place] [facility] XR PELVIS 3+ VW 2022-06-16 17:07:12 [facility]R PELVIS 3+ VW 2022-06-16 17:07:12 [facility] CONSENT/REFUSAL FOR 2022-06-01 04:17:40 Doctor Fidel, [facility] DIAGNOSIS AND TREATMENT [place] [facility] CONSENT/REFUSAL FOR 2022-06-01 04:17:40 Doctor Parra, [facility] DIAGNOSIS AND TREATMENT [place] [facility] [place] EMERGENCY SERVICES 2022-05-31 06:01:00 Doctor Fidel, [facility] AGREEMENTS AND [place] [facility] AUTHORIZATIONS XR PELVIS 3+ VW 2022-05-19 16:43:54 [facility] XR PELVIS 3+ VW 2022-05-19 16:43:54 Arnaldo [facility] Medical Branch XR PELVIS 3+ VW 2022-04-21 20:26:51 Arnaldo [facility] Medical Branch XR HIPS 3 VW RIGHT 2022-04-11 02:02:47 Irasema Robledo [facility] Medical Branch XR PELVIS <3 VW 2022-04-11 02:02:47 [facility]EL[facility] <3 VW 2022-04-11 02:02:47 [facility] HIPS 3 VW RIGHT 2022-04-11 02:02:47 Irasema Robledo [facility] POCT TEST 2022-04-11 01:46:00 Irasema Robledo [facility] POCT TEST 2022-04-11 01:46:00 Irasema Robledo [facility] URINALYSIS 2022-04-11 01:45:00 Venkat [facility] URINALYSIS 2022-04-11 01:45:00 Venkat [facility] COMP. METABOLIC PANEL 2022-04-10 23:02:00 [id number] CBC WITH DIFF 2022-04-10 23:02:00 Venkat [facility] CBC WITH DIFF 2022-04-10 23:02:00 Venkat [facility] COMP. METABOLIC PANEL 2022-04-10 23:02:00 [id number] Medical [place] EMERGENCY SERVICES 2022-04-10 05:01:00 Doctor Unassigned, [facility] AGREEMENTS AND [place] [facility] AUTHORIZATIONS EMERGENCY DEPARTMENT 2022-04-10 05:01:00 Doctor Unassigned, [facility] DOCUMENTS [place] [facility] XR CLAVICLE COMP 2022-04-05 19:40:00 Lobo Castano [facility] BILATERAL Medical Branch XR CLAVICLE COMP 2022-04-05 19:40:00 Lobo Castano [facility] BILATERAL [facility] Branch URINALYSIS 2022-04-05 11:07:00 Greg [facility] URINALYSIS 2022-04-05 11:07:00 Greg [facility] CBC WITH DIFF 2022-04-05 10:24:00 Jiemna Ny [facility] BASIC METABOLIC PANEL 2022-04-05 10:24:00 Jimena Ny [facility] (NA, K, CL, CO2, GLUCOSE, [facility] BUN, CREATININE, CA) BASIC METABOLIC PANEL 2022-04-05 10:24:00 Jimena Ny [facility] (NA, K, CL, CO2, GLUCOSE, [facility] BUN, CREATININE, CA) CBC WITH DIFF 2022-04-05 10:24:00 Anant Jimena [facility] COVID-19 (ID NOW RAPID 2022-04-05 00:38:00 AnantJimena lopez [facility] TESTING) [facility] LAB ONLY COVID 2022-04-05 00:38:00 Anant Jimena [facility] INTERPRETATION [facility] COVID-19 (ID NOW RAPID 2022-04-05 00:38:00 Anant, Jimena [facility] TESTING) [facility] LAB ONLY COVID 2022-04-05 00:38:00 Anant Jimena [facility] INTERPRETATION [facility] TROPONIN I 2022-04-05 00:25:00 Chou [facility] Andrea TROPONIN I 2022-04-05 00:25:00 Chou [facility] Andrea XR SHOULDER 2+ VW RIGHT 2022-04-05 00:11:00 Chou de [facility] Andrea XR KNEE 3 VW LEFT 2022-04-05 00:11:00 Chou de [facility] Andrea XR FOOT 3+ VW LEFT 2022-04-05 00:11:00 Chou [facility] Andrea XR PELVIS 3+ VW 2022-04-05 00:11:00 Violetta [facility] XR KNEE <3 VW RIGHT 2022-04-05 00:11:00 Flo [facility] Medical [place] XR FOOT 3+ VW LEFT 2022-04-05 00:11:00 Chou [facility] Andrea XR KNEE <3 VW RIGHT 2022-04-05 00:11:00 Flo [facility] XR KNEE 3 VW LEFT 2022-04-05 00:11:00 Chou de [facility] Andrea XR PELVIS 3+ VW 2022-04-05 00:11:00 Flo [facility] o f [facility] XR SHOULDER 2+ VW RIGHT 2022-04-05 00:11:00 Chou [facility] Andrea HB ECG ROUTINE & RHYTHM 2022-04-04 23:08:36 Chou [facility] Andrea HB ECG ROUTINE & RHYTHM 2022-04-04 23:08:36 Chou [facility] Andrea HB ABO GROUPING 2022-04-04 19:55:[address] [facility] HB ABO GROUPING 2022-04-04 19:55:[address] [facility] CT TRAUMA HEAD WO 2022-04-04 19:10:01 Nolvia Husain [facility] CONTRAST [facility] CT TRAUMA CERVICAL SPINE 2022-04-04 19:10:01 Nolvia Husain [facility] CONTRAST Medical Branch CT TRAUMA THORACIC SPINE 2022-04-04 19:10:01 Nolvia Husain [facility] CONTRAST Medical Branch CT TRAUMA LUMBAR SPINE WO 2022-04-04 19:10:01 [facility] [place] CT TRAUMA HEAD WO 2022-04-04 19:10:01 Nolvia Husain [facility] CONTRAST Medical Branch CT TRAUMA CERVICAL SPINE 2022-04-04 19:10:01 Nolvia Husain [facility] CONTRAST Medical Branch CT TRAUMA THORACIC SPINE 2022-04-04 19:10:01 Nolvia Husain [facility] CONTRAST Medical Branch CT TRAUMA LUMBAR SPINE WO 2022-04-04 19:10:01 [facility] TRAUMA THORAX W 2022-04-04 19:08:26 Nolvia Husain [facility] CONTRAST Medical Branch CT TRAUMA ABDOMEN PELVIS 2022-04-04 19:08:26 Nolvia Husain [facility] CONTRAST Medical Branch CT TRAUMA THORAX W 2022-04-04 19:08:26 Nolvia Husani [facility] CONTRAST Medical Branch CT TRAUMA ABDOMEN PELVIS 2022-04-04 19:08:26 Nolvia Husain [facility] CONTRAST Medical Branch ABORH CONFIRMATION (LAB 2022-04-04 19:02:00 Nolvia Husain [facility] ONLY) Medical Branch ABORH CONFIRMATION (LAB 2022-04-04 19:02:00 Nolvia Husain [facility] ONLY) Medical Branch LIPASE 2022-04-04 18:35:[address] [facility] TEST, SERUM 2022-04-04 18:35:00 Nolvia Husain [facility] COMP. METABOLIC PANEL 2022-04-04 18:35:00 Nolvia Husain [facility] ([id number]) Medical Branch COMP. METABOLIC PANEL 2022-04-04 18:35:00 Nolvia Husain [facility] ([id number]) Medical Branch LIPASE 2022-04-04 18:35:[address] [facility] TEST, SERUM 2022-04-04 18:35:00 Nolvia Husain [facility] CBC WITH DIFF 2022-04-04 18:20:[address] [facility] CBC WITH DIFF 2022-04-04 18:20:[address] [facility] EMERGENCY SERVICES 2022-04-04 05:01:00 Doctor Unassigned, [facility] AGREEMENTS AND [place] [facility] AUTHORIZATIONS EMERGENCY DEPARTMENT 2022-04-04 05:01:00 Doctor Unassigned, [facility] DOCUMENTS [place] [facility] EMERGENCY SERVICES 2022-04-04 05:01:00 Doctor Unassigned, [facility] AGREEMENTS AND [place] [facility] AUTHORIZATIONS EMERGENCY DEPARTMENT 2022-04-04 05:01:00 Doctor Unasslanette, [facility] DOCUMENTS [place] [facility] POCT TEST 2022-04-01 04:37:00 Deonna Melendrez [facility] POCT TEST 2022-04-01 04:37:00 Deonna Melendrez [facility] LIPASE 2022-04-01 04:36:[address] [facility] COMP. METABOLIC PANEL 2022-04-01 04:36:00 Deonna Melendrez [facility] ([id number]) [facility] CBC WITH DIFF 2022-04-01 04:36:00 Deonna Melendrez [facility] URINALYSIS 2022-04-01 04:36:00 Parvin [facility] CBC WITH DIFF 2022-04-01 04:36:00 Deonna Melendrez [facility] COMP. METABOLIC PANEL 2022-04-01 04:36:00 Deonna Melendrez [facility] ([id number]) [facility] URINALYSIS 2022-04-01 04:36:[address] [facility] LIPASE 2022-04-01 04:36:[address] [facility] NOTICE OF PRIVACY 2022-04-01 03:37:12 Doctor Unassigned, [facility] PRACTICES [place] [facility] [place] NOTICE OF PRIVACY 2022-04-01 03:37:12 Doctor Unassigned, [facility] [place] [facility] [place] CONSENT/REFUSAL FOR 2022-04-01 03:36:55 Doctor Fidel [facility] DIAGNOSIS AND TREATMENT [place] [facility] [place] CONSENT/REFUSAL FOR 2022-04-01 03:36:55 Doctor Fidel [facility] DIAGNOSIS AND TREATMENT [place] [facility] EMERGENCY SERVICES 2022-03-31 05:01:00 Doctor Fdiel [facility] AGREEMENTS AND [place] [facility] AUTHORIZATIONS SARS-COV-2 COVID-19 2022-03-17 16:49:14 [facility] MIKE-SUCROSE VACCINE 12 [place] [facility] YRS+, BIVALENT 0.3ML, IM, (PFIZER ARITA TOP BOOSTER) SARS-COV-2 COVID-19 2022-03-17 16:49:14 Doctor Fidel [facility] MIKE-SUCROSE VACCINE 12 [place] [facility] YRS+, BIVALENT 0.3ML, IM, (PFIZER ARITA TOP BOOSTER) XR PELVIS 3+ VW 2022-02-24 18:13:00 Arnaldo [facility] o f [facility] EXTERNAL PROVIDER RECORDS 2022-02-22 05:01:00 Doctor Fidel, [facility] [place] [facility] EMERGENCY SERVICES 2022-01-23 05:01:00 Doctor Fidel [facility] AGREEMENTS AND [place] [facility] AUTHORIZATIONS EMERGENCY DEPARTMENT 2022-01-23 05:01:00 Doctor Fidel [facility] DOCUMENTS [place] [facility] Encounters Start End Encounter Admission Attending Care Care Encounter Source Date/Time Date/Time Type Type Clinicians Facility Department ID 2022-09-19 Outpatient [facility] [id number] [facility] 17:53:01 [id number] [facility] 2022-09-19 Outpatient [facility] [id number] [facility] 17:49:01 [id number] [facility] 2021-11-02 Outpatient [facility] [id number] [place] 11:00:[id number] [place] [address] 2021-07-09 Inpatient [facility] [id number] [facility] 12:46:00 14 2021-05-25 Inpatient [facility] [id number] [facility] 23:19:00 94 2021-04-30 Emergency [facility] [id number] Univers 23:08:18 [facility] 2023-05-18 2023-05-18 Outpatient R ALEJANDRA MORROW [facility] [id number] [facility] 08:30:00 08:30:00 HUMBERTO MORROWSOL [facility] 2023-04-27 2023-04-27 Outpatient R ALEJANDRA MORROW [facility] [id number] [facility] 10:00:00 10:13:12 HUMBERTO MORROWSOL [facility] 2023-04-27 2023-04-[address] [facility] 1.2.840.114 [id number] [facility] 10:00:00 10:13:12 Visit Alejandra lopez 350.1.13.10 it[place] [id number] [address] 2023-04-27 2023-04-27 Telephone [facility] 1.2.840.11 [id number] Univers 00:00:00 00:00:00 Alejandra lopez 350.1.13.10 [place] [facility] [id number] [address] 2023-04-25 2023-04-25 Emergency [facility] [id number] Univers 17:02:00 19:29:00 DEONNA ity of [facility] 2023-04-25 2023-04-25 [facility] 1.2.153.746 [id number] Univers 17:02:00 19:29:00 Deonna S DEDRA 350.1.13.10 i ty of [place] 4.2.7.2.686 [facility] [place] [id number] [address] 2023-04-25 2023-04-25 Telephone [facility] 1.2.840.114 [id number] Univers 00:00:00 00:00:00 Alejandra lopez 350.1.13.10 ity [facility] [place] [id number] In dical [address] 2023-04-18 2023-04-18 Outpatient R NICOLLE [facility] [id number] Univers 14:45:00 15:22:10 SUSAN erickson o f [facility] 2023-04-18 2023-04-18 Travel 1.2.840.1 1.2.534.452 [id number] Univers 00:00:00 00:00:00 02277.1.1 350.1.13.10 ity of 3.104.2.7 [place].698 [place] .3.903549 084.8 Medica l .8 [place] 2023-04-14 2023-04-14 Travel 1.2.840.1 1.2.883.207 [id number] Univers 00:00:00 00:00:00 97113.1.1 350.1.13.10 ity of 3.104.2.7 [place].3.698 [place] .3.785913 084.8 Medica l .8 [place] 2023-04-03 2023-04-03 Soaping Department Supervisor Godwin Handy 1.2.840.1 [id number] [facility] 14:15:00 14:15:00 Visit [place] [address].1.1 ity of 3.104.2.7 [place] .3.783087 Medica l .8 [place] 2023-04-03 2023-04-03 Outpatient R OLE [facility] [id number] [facility] 14:15:00 11:18:40 GODWIN ity of [facility] 2023-04-03 2023-04-03 Travel 1.2.840.1 1.2.193.731 [id number] Univers 00:00:00 00:00:00 68039.1.1 350.1.13.10 ity of 3.104.2.7 [place].3.698 [place] .3.467844 084.8 Medica l .8 [place] 2023-03-30 2023-03-30 Outpatient R NICOLLE [facility] [id number] Univers 14:45:00 15:21:13 SUSAN ity o f [facility] 2023-03-30 2023-03-30 Travel 1.2.840.1 1.2.836.723 [id number] Univers 00:00:00 00:00:00 37162.1.1 350.1.13.10 ity of 3.104.2.7 4.[place]7.3.698 [place] .3.045534 084.8 Medica l .8 [place] 2023-03-16 2023-03-16 Soaping Department Supervisor Susan Valverde 1.2.840.1 [id number] Univers 15:45:00 16:00:00 Visit Pcp-Lab 59865.1.1 ity of 3.104.2.7 [place] .3.503143 Medica l .8 [place] 2023-03-16 2023-03-16 Outpatient R NICOLLE [facility] [id number] Univers 14:45:00 15:29:18 SUSAN ity o f [facility] 2023-03-16 2023-03-16 Travel 1.2.840.1 1.2.134.995 [id number] Univers 00:00:00 00:00:00 69949.1.1 350.1.13.10 ity of 3.104.2.7 [place].3.698 [place] .3.330821 084.8 Medica l .8 [place] 2023-03-16 2023-03-16 Orders Doctor 1.2.840.6 [id number] Univers 00:00:00 00:00:00 Only Unassigned, 64287.1.1 ity of [place] 3.104.2.7 [place] .3.893059 Medica l .8 [place] 2022-12-29 2022-12-29 Patient Pcp, BOUCHRA 1.2.840.114 [id number] Univers 00:00:00 00:00:00 Secure Msg Patient EDITH 350.1.13.10 ity of Does Not HOSPITAL [place].2.686 [place] Have A [id number] [address] 2022-12-15 2022-12-15 Hospital Arnaldo, 1.2.840.5 [id number] Univers 10:07:57 23:59:00 Encounter Bouchra 03503.1.1 it y of 3.104.2.7 [place] .3.231462 Medica l .8 [place] 2022-12-15 2022-12-15 Outpatient Escobar MCINTOSH [facility] [id number] Univers 10:30:00 11:21:10 BOUCHRA ity of [facility] 2022-12-15 2022-12-15 Office Arnaldo, 1.2.840.3 [id number] Univers 10:30:00 11:21:10 Visit Bouchra 18312.1.1 ity of 3.104.2.7 [place] .3.164426 Medica l .8 [place] 2022-12-15 2022-12-15 Travel 1.2.840.1 1.2.526.509 [id number] Univers 00:00:00 00:00:00 14425.1.1 350.1.13.10 ity of 3.104.2.7 [place]7.3.698 [place] .3.574615 084.8 Medica l .8 [place] 2022-12-05 2022-12-05 Outpatient R SELF, [facility] [id number] Univers 08:45:00 10:19:40 JAMES ity o f [facility] 2022-12-05 2022-12-05 Travel 1.2.840.1 1.2.175.403 [id number] Univers 00:00:00 00:00:00 76943.1.1 350.1.13.10 ity of 3.104.2.7 4.[place]7.3.698 [place] .3.282563 084.8 Medica l .8 [place] 2022-12-02 2022-12-02 Outpatient R [facility] [id number] Univers 10:45:00 10:45:00 ity of [facility] 2022-11-25 2022-11-25 Outpatient R ALEJANDRA MORROW [facility] U TMB [id number] Univers 08:30:00 09:09:48 ALEJANDRA MORROW ity of [facility] 2022-11-25 2022-11-25 Office Nessa-Lashell 1.2.840.7 [id number] Univers 08:30:00 09:09:48 Visit john Alejandra 96169.1.1 i ty of 3.104.2.7 [place] .3.526661 Medica l .8 [place] 2022-11-25 2022-11-25 Travel 1.2.840.1 1.2.147.513 [id number] Univers 00:00:00 00:00:00 30220.1.1 350.1.13.10 ity of 3.104.2.7 4.[place]7.3.698 [place] .3.922208 084.8 Medica l .8 [place] 2022-11-25 2022-11-25 Orders Doctor 1.2.840.3 [id number] Univers 00:00:00 00:00:00 Only Unassigned, 52013.1.1 ity of [place] 3.104.2.7 [place] .3.261036 Medica l .8 [place] 2022-10-31 2022-10-31 [facility] [id number] Univers 09:30:00 10:46:48 [facility] 2022-10-31 2022-10-31 Orders Doctor 1.2.840.5 [id number] Univers 00:00:00 00:00:00 Only Unassigned, 63871.1.1 ity of [place] 3.104.2.7 [place] .3.682945 Medica l .8 [place] 2022-10-31 2022-10-31 Travel 1.2.840.1 1.2.007.938 [id number] Univers 00:00:00 00:00:00 65545.1.1 350.1.13.10 ity of 3.104.2.7 4.[place].7.3.698 [place] .3.217906 084.8 Medica l .8 [place] 2022-10-07 2022-10-07 Orders Doctor 1.2.840.3 [id number] Univers 00:00:00 00:00:00 Only Unassigned, 59732.1.1 ity of [place] 3.104.2.7 [place] .3.488926 Medica l .8 [place] 2022-09-19 2022-09-19 [facility]patient [facility] [id number] Univers 08:00:00 09:02:03 TEJAL ity [facility] 2022-09-19 2022-09-19 Travel 1.2.840.1 1.2.106.746 [id number] Univers 00:00:00 00:00:00 28214.1.1 350.1.13.10 ity of 3.104.2.7 [place].3.698 [place] .3.568107 084.8 Medica l .8 [place] 2022-09-09 2022-09-09 Patient Doctor BOUCHRA 1.2.840.114 [id number] Univers 00:00:00 00:00:00 Secure Msg Unassigned, EDITH 350.1.13.10 ity of [place] [facility] 4.2.7.2.686 Harley as [id number] Medi torito 019 [place] 2022-09-06 2022-09-06 Orders Doctor 1.2.840.6 [id number] Univers 00:00:00 00:00:00 Only Unassigned, 33639.1.1 ity of [place] 3.104.2.7 [place] .3.578628 Medica l .8 [place] 2022-08-22 2022-08-22 Outpatient R SELF, [facility] [id number] Univers 10:15:00 12:05:25 JAMES erickson o f [facility] 2022-08-22 2022-08-22 Travel 1.2.840.1 1.2.737.175 [id number] Univers 00:00:00 00:00:00 54387.1.1 350.1.13.10 ity of 3.104.2.7 4.[place].3.698 [place] .3.699795 084.8 Medica l .8 [place] 2022-07-25 2022-07-25 Outpatient R SELF, [facility] [id number] Univers 08:45:00 10:27:30 JAMES ity o f [facility] 2022-07-25 2022-07-25 Travel 1.2.840.1 1.2.788.029 [id number] Univers 00:00:00 00:00:00 54486.1.1 350.1.13.10 ity of 3.104.2.7 4.[place]7.3.698 [place] .3.083885 084.8 Medica l .8 [place] 2022-07-15 2022-07-15 Emergency EM Ramirez HCATB EO3 [id number] [facility] 19:20:00 21:08:00 Jose Antwan [facility] Jyoti 2022-07-04 2022-07-04 Emergency EM Eric Moore HCAPM GAYLA LA00 [id number] [facility] 16:22:00 17:00:00 83 [facility] 2022-06-16 2022-06-16 [facility], 1.2.840.3 [id number] [facility] 10:58:02 23:59:00 Encounter Bouchra 39986.1.1 it y of 3.104.2.7 [place] .3.129805 Medica l .8 [place] 2022-06-16 2022-06-16 [facility] [id number] Univers 10:20:00 11:48:13 BOUCHRA itadrian of [facility] 2022-06-16 2022-06-16 Office Arnaldo, 1.2.840.9 [id number] [facility] 10:20:00 11:48:13 Visit Bouchra 55600.1.1 ity of 3.104.2.7 [place] .3.564275 Medica l .8 [place] 2022-06-16 2022-06-16 Travel 1.2.840.1 1.2.566.647 [id number] Univers 00:00:00 00:00:00 02896.1.1 350.1.13.10 ity of 3.104.2.[place] .3.887886 084.8 Medica l .8 [place] 2022-06-13 2022-06-13 Outpatient R REYNALDO, [facility] [id number] Univers 11:00:00 11:34:17 JAMES erickson o f [facility] 2022-06-13 2022-06-13 Travel 1.2.840.1 1.2.454.647 [id number] Univers 00:00:00 00:00:00 21348.1.1 350.1.13.10 ity of 3.104.2.7 [place] .3.741618 084.8 Medica l .8 [place] 2022-05-31 2022-06-01 Emergency X PARVIN [facility] ERT [id number] Univers 22:37:00 00:11:00 DEONNA ity of [facility] 2022-05-31 2022-06-01 Emergency Melendrez, 1.2.840.4 [id number] Univers 22:37:00 00:11:00 Deonna Lopez 47927.1.1 ity of 3.104.2.7 [place] .3.766579 Medica l .8 [place] 2022-05-31 2022-05-31 Travel 1.2.840.1 1.2.910.941 [id number] Univers 00:00:00 00:00:00 41769.1.1 350.1.13.10 ity of 3.104.2.[place]3.[place] .3.118505 084.8 Medica l .8 [place] 2022-05-23 2022-05-23 Outpatient R [facility] [id number] Univers 10:15:00 10:15:00 JAMES erickson o f [facility] 2022-05-19 2022-05-19 [facility], 1.2.840.0 [id number] Univers 10:33:33 23:59:00 Encounter Bouchra 24650.1.1 it y of 3.104.2.7 [place] .3.701845 Medica l .8 [place] 2022-05-19 2022-05-19 [facility], 1.2.840.5 [id number] Univers 12:50:00 12:50:00 Visit Bouchra 81392.1.1 ity of 3.104.2.7 [place] .3.217332 Medica l .8 [place] 2022-05-19 2022-05-19 [facility] [id number] Univers 12:50:00 12:42:46 BOUCHRA erickson [facility] 2022-05-19 2022-05-19 Travel 1.2.840.1 1.2.245.162 2746 [id number] Univers 00:00:00 00:00:00 92813.1.1 350.1.13.10 ity of 3.104.2.[place].698 [place] .[place] 084.8 Med[place] .8 [place] 2022-05-02 2022-05-02 Outpatient R REYNALDO, [facility] [id number] Univers 08:45:00 09:32:43 JAMES ity o f [facility] 2022-05-02 2022-05-02 Travel 1.2.840.1 1.2.065.036 3359 1874 Univers 00:00:00 00:00:00 04733.1.1 350.1.13.10 ity of 3.104.2.[place].698 [place] .3.440[place] 084.8 Medica l .8 [place] 2022-04-21 2022-04-21 [facility] [id number] Univers 15:08:38 23:59:00 BOUCHRA ity of [facility] 2022-04-21 2022-04-21 [facility], 1.2.840.1 [id number] Univers 15:08:38 23:59:00 Encounter Bouchra 67878.1.1 it y of 3.104.2.7 [place] .3.446769 Medica l .8 [place] 2022-04-21 2022-04-21 [facility], 1.2.840.3 [id number] [id number] Univers 15:20:00 16:19:45 Visit Bouchra 45972.1.1 ity of 3.104.2.7 [place] .3.303446 Medica l .8 [place] 2022-04-21 2022-04-21 Travel 1.2.840.1 1.2.987.344 0077 0847 Univers 00:00:00 00:00:00 63126.1.1 350.1.13.10 ity of 3.104.2.[place].698 [place].9335[place] 084.8 Medica l .8 [place] 2022-04-10 2022-04-10 Emergency X ROBLEDO, [facility] ERT [id number] Univers 17:11:00 22:14:00 IRASEMA ity of [facility] 2022-04-10 2022-04-10 Emergency Robledo, 1.2.840.6 [id number] Univers 17:11:00 22:14:00 Irasema 41828.1.1 ity of 3.104.2.7 [place] .3.558315 Medica l .8 [place] 2022-04-10 2022-04-10 Urgent MariShivani 1.2.840.1 51973 [id number] Univers 16:40:00 18:22:07 Care [facility] 05672.1.1 ity of 3.104.2.7 [place] .3.178959 Medica l .8 [place] 2022-04-10 2022-04-10 Outpatient R MARI, [facility] [id number] Univers 16:40:00 16:40:00 SHIVANI ity o f [facility] 2022-04-10 2022-04-10 Travel 1.2.840.1 1.2.361.095 3382 4834 Univers 00:00:00 00:00:00 74839.1.1 350.1.13.10 ity of 3.104.2.[place].698 [place].3348[place] 084.8 Medica l .8 [place] 2022-04-08 2022-04-08 Transition Moise, 1.2.840.7 [id number] Univers 00:00:00 00:00:00 of Care Negrita 08498.1.1 i ty of 3.104.2.7 [place] .3.052742 Medica l .8 [place] 2022-04-04 2022-04-07 Hospital Person, 1.2.840.9 [id number] [id number] Univers 17:33:00 17:00:00 Encounter Keagan 81223.1.1 it y of 3.104.2.7 [place] .3.414526 Medica l .8 [place] 2022-04-06 2022-04-06 [facility], 1.2.840.4 [id number] Univers 00:00:00 00:00:00 Management Care 07670.1.1 i ty of Transition 3.104.2.7 Harley as .3.895859 Medica l .8 [place] 2022-04-04 2022-04-04 Emergency X [facility] ERT [id number] Univers 12:41:00 16:56:00 NOLVIA ity [facility] 2022-04-04 2022-04-04 Emergency X [facility] ERT [id number] Univers 12:41:00 16:56:00 NOLVIA ity [facility] 2022-04-04 2022-04-04 Emergency Husain, 1.2.840.6 [id number] [id number] Univers 12:41:00 16:56:00 Nolvia 35680.1.1 ity of 3.104.2.7 [place] .3.277674 Medica l .8 [place] 2022-04-04 2022-04-04 Travel 1.2.840.1 1.2.778.646 7728 3840 Univers 00:00:00 00:00:00 90465.1.1 350.1.13.10 ity of 3.104.2.[place].698 [place].2275[place] 084.8 Medica l .8 [place] 2022-03-31 2022-04-01 Emergency [facility] [id number] Univers 22:46:00 01:29:00 DEONNA ity of [facility] 2022-03-31 2022-04-01 Emergency Melendrez, 1.2.840.6 [id number] [id number] Univers 22:46:00 01:29:00 Deonna Lopez 56366.1.1 ity of 3.104.2.7 [place] .3.592031 Medica l .8 [place] 2022-03-31 2022-03-31 Orders Doctor 1.2.840.7 [id number] Univers 00:00:00 00:00:00 Only Unassigned, 42203.1.1 ity of [place] 3.104.2.7 [place] .3.465534 Medica l .8 [place] 2022-03-31 2022-03-31 Travel 1.2.840.1 1.2.142.303 8760 0137 Univers 00:00:00 00:00:00 96982.1.1 350.1.13.10 ity of 3.104.2.7 [place]7.3.698 [place] .3.326833 084.8 Medica l .8 [place] 2022-03-28 2022-03-28 Outpatient R REYNALDO, [facility] [id number] Univers 10:15:00 12:05:24 JAMES ity o f [facility] 2022-03-28 2022-03-28 Travel 1.2.840.1 1.2.265.605 4102 9783 Univers 00:00:00 00:00:00 98526.1.1 350.1.13.10 ity of 3.104.2.7 [place]3.698 [place] .3.844249 084.8 Medica l .8 [place] 2022-03-17 2022-03-17 Imm/Inj Vignesh Mack P 1.2.840.1 [id number] Univers 11:30:00 12:25:54 [facility] 82152.1.1 ity of 3.104.2.7 [place] .3.627187 Medica l .8 [place] 2022-03-17 2022-03-17 [facility] [id number] Univers 10:30:00 11:13:04 VIGNESH ity of [facility] 2022-03-17 2022-03-17 Travel 1.2.840.1 1.2.176.905 5474 0034 Univers 00:00:00 00:00:00 70627.1.1 350.1.13.10 ity of 3.104.2.7 [place].3.698 [place] .3.042840 084.8 Medica l .8 [place] 2022-02-24 2022-02-24 [facility], 1.2.840.4 [id number] Univers 13:02:19 23:59:00 Encounter Bouchra 15264.1.1 it y of 3.104.2.7 [place] .3.163615 Medica l .8 [place] 2022-02-24 2022-02-24 [facility], 1.2.840.7 [id number] Univers 13:02:19 23:59:00 Encounter Bouchra 05779.1.1 it y of 3.104.2.7 [place] .3.376310 Medica l .8 [place] 2022-02-24 2022-02-24 Outpatient Escobar MCINTOSH [facility] [id number] Univers 13:00:00 14:33:28 BOUCHRA ity of [facility] 2022-02-24 2022-02-24 [facility], 1.2.840.1 [id number] [id number] Univers 13:00:00 14:33:28 Visit Bouchra 59262.1.1 ity of 3.104.2.7 [place] .3.777599 Medica l .8 [place] 2022-02-24 2022-02-24 Outpatient R ARNALDO [facility] [id number] Univers 13:00:00 13:00:00 BOUCHRA ity of [facility] 2022-02-24 2022-02-24 Travel 1.2.840.1 1.2.243.119 7315 4498 Univers 00:00:00 00:00:00 25246.1.1 350.1.13.10 ity of 3.104.2.7 [place]7.3.698 [place] .3.878233 084.8 Medica l .8 [place] 2022-02-22 2022-02-22 Orders Doctor 1.2.840.9 [id number] Univers 00:00:00 00:00:00 Only Unassigned, 84878.1.1 ity of [place] 3.104.2.7 [place] .3.234266 Medica l .8 [place] 2022-02-22 2022-02-22 Orders Doctor 1.2.840.2 [id number] [id number] Univers 00:00:00 00:00:00 Only Unassigned, 07698.1.1 ity of [place] 3.104.2.7 [place] .3.411268 Medica l .8 [place] 2022-02-21 2022-02-21 Outpatient R SELF, [facility] [id number] Univers 08:00:00 08:48:33 JAMES ity o f [facility] 2022-02-21 2022-02-21 Travel 1.2.840.1 1.2.194.516 1737 9562 Univers 00:00:00 00:00:00 75674.1.1 350.1.13.10 ity of 3.104.2.7 [place]7.3.698 [place] .3.185396 084.8 Medica l .8 [place] 2022-02-21 2022-02-21 Travel 1.2.840.1 1.2.116.376 3416 9562 Univers 00:00:00 00:00:00 30398.1.1 350.1.13.10 ity of 3.104.2.7 [place]7.3.698 [place] .3.836691 084.8 Medica l .8 [place] 2022-01-23 2022-01-23 Emergency X Kitty CONTE [facility] ERT [id number] Univers 19:42:00 21:04:00 ity of [facility] 2022-01-23 2022-01-23 Emergency Checo, K 1.2.840.7 [id number] Univers 19:42:00 21:04:00 Bree 27326.1.1 ity of 3.104.2.7 [place] .3.523978 Medica l .8 [place] 2022-01-23 2022-01-23 Emergency [place], K 1.2.840.5 [id number] Univers 19:42:00 21:04:00 Bree 48474.1.1 ity of 3.104.2.7 [place] .3.125396 Medica l .8 [place] 2022-01-23 2022-01-23 Travel 1.2.840.1 1.2.923.999 0181 2965 Univers 00:00:00 00:00:00 51536.1.1 350.1.13.10 ity of 3.104.2.7 [place]7.3.698 [place] .3.638218 084.8 Medica l .8 [place] 2022-01-23 2022-01-23 Travel 1.2.840.1 1.2.060.094 0798 2965 Univers 00:00:00 00:00:00 56333.1.1 350.1.13.10 ity of 3.104.2.7 [place]7.3.698 [place] .3.892889 084.8 Medica l .8 [place] 2022-01-17 2022-01-17 Outpatient R SELF, [facility] [id number] Univers 10:15:00 11:23:04 JAMES dre [facility] 2022-01-17 2022-01-17 Outpatient R SELF, [facility] [id number] Univers 10:15:00 11:23:04 JAMES dre [facility] 2022-01-17 2022-01-17 Travel 1.2.840.1 1.2.295.202 7739 6960 [facility] 00:00:00 00:00:00 81975.1.1 350.1.13.10 ity of 3.104.2.7 4.[place]7.3.698 [place] .3.359430 084.8 Medica l .8 [place] 2022-01-17 2022-01-17 Travel 1.2.840.1 1.2.811.558 6259 6960 Univers 00:00:00 00:00:00 70319.1.1 350.1.13.10 ity of 3.104.2.7 4.[place].7.3.698 [place] .3.358488 084.8 Medica l .8 [place] 2021-12-31 2021-12-31 Outpatient R ASH RAMIREZ [facility] [id number] Univers 16:00:00 17:22:54 ity of [facility] 2021-12-31 2021-12-31 Office Ash Ramirez 1.2.840.7 [id number] Univers 16:00:00 17:22:54 Visit Maggie Brooks 18152.1.1 ity of 3.104.2.7 [place] .3.003209 Medica l .8 [place] 2021-12-31 2021-12-31 Office Ash Ramirez 1.2.840.0 [id number] Univers 16:00:00 17:22:54 Visit Maggie Brooks 28062.1.1 ity of 3.104.2.7 [place] .3.376045 Medica l .8 [place] 2021-12-31 2021-12-31 Outpatient R ASH RAMIREZ [facility] [id number] Univers 16:00:00 16:00:00 ity of [facility] 2021-12-31 2021-12-31 Travel 1.2.840.1 1.2.765.145 2293 7179 Univers 00:00:00 00:00:00 72899.1.1 350.1.13.10 ity of 3.104.2.7 4.[place].7.3.698 [place] .3.088707 084.8 Medica l .8 [place] 2021-12-31 2021-12-31 Travel 1.2.840.1 1.2.402.117 0005 7179 Univers 00:00:00 00:00:00 16545.1.1 350.1.13.10 ity of 3.104.2.7 4.[place].7.3.698 [place] .3.148133 084.8 Medica l .8 [place] 2021-12-20 2021-12-20 Outpatient R SELF, [facility] [id number] Univers 10:30:00 11:58:18 JAMES ity o f [facility] 2021-12-20 2021-12-20 Travel 1.2.840.1 1.2.389.858 8988 9777 Univers 00:00:00 00:00:00 20519.1.1 350.1.13.10 ity of 3.104.2.7 [place]7.3.698 [place] .3.013037 084.8 Medica l .8 [place] 2021-12-20 2021-12-20 Travel 1.2.840.1 1.2.632.860 8037 9777 Univers 00:00:00 00:00:00 99217.1.1 350.1.13.10 ity of 3.104.2.7 4.2.7.3.698 [place] .3.260728 084.8 Medica l .8 [place] 2021-12-20 2021-12-20 Travel 1.2.840.1 1.2.516.391 6893 9777 Univers 00:00:00 00:00:00 45532.1.1 350.1.13.10 ity of 3.104.2.7 4.2.7.3.698 [place] .3.469349 084.8 Medica l .8 [place] 2021-12-13 2021-12-13 [facility] [id number] Univers 08:00:00 08:00:00 HANDY [facility] 2021-12-06 2021-12-06 Urgent Shivani Guerra 1.2.840.1 44752 [id number] Univers 12:00:00 12:16:45 Akiko Gonzalez 36368.1.1 ity of 3.104.2.7 [place] .3.607507 Medica l .8 [place] 2021-12-06 2021-12-06 Urgent Shivani Guerra 1.2.840.1 12041 [id number] [id number] Univers 12:00:00 12:16:45 Akiko Gonzalez 34915.1.1 ity of 3.104.2.7 [place] .3.727228 Medica l .8 [place] 2021-12-06 2021-12-06 [facility] [id number] Univers 12:00:00 12:16:45 AKIKO [facility] 2021-12-06 2021-12-06 Urgent Shivani Guerra 1.2.840.1 69984 [id number] [facility] 12:00:00 12:16:45 Eros Akiko Voss 00254.1.1 ity of 3.104.2.7 [place] .3.372129 Medica l .8 [place] 2021-12-06 2021-12-06 Travel 1.2.840.1 1.2.832.153 4914 2730 Univers 00:00:00 00:00:00 46421.1.1 350.1.13.10 ity of 3.104.2.7 4.[place].7.3.698 [place] .3.488082 084.8 Medica l .8 [place] 2021-12-06 2021-12-06 Travel 1.2.840.1 1.2.774.697 3957 2730 Univers 00:00:00 00:00:00 36797.1.1 350.1.13.10 ity of 3.104.2.7 4.2.7.3.698 [place] .3.317268 084.8 Medica l .8 [place] 2021-12-06 2021-12-06 Travel 1.2.840.1 1.2.466.030 6248 2730 Univers 00:00:00 00:00:00 46276.1.1 350.1.13.10 ity of 3.104.2.7 4.2.7.3.698 [place] .3.175767 084.8 Medica l .8 [place] 2021-11-26 2021-11-26 Office Fish, Ash 1.2.840.0 [id number] Univers 15:00:00 15:40:48 Visit 45999.1.1 ity of 3.104.2.7 [place] .3.242956 Medica l .8 [place] 2021-11-26 2021-11-26 Outpatient R FISH, ASH [facility] [id number] Univers 15:00:00 15:40:48 ity of [facility] 2021-11-26 2021-11-26 Office Fish, Ash 1.2.840.9 [id number] Univers 15:00:00 15:40:48 Visit 16336.1.1 ity of 3.104.2.7 [place] .3.425874 Medica l .8 [place] 2021-11-26 2021-11-26 Outpatient ASH ROWLEY [facility] [id number] Univers 15:00:00 15:00:00 ity of [facility] 2021-11-26 2021-11-26 Travel 1.2.840.1 1.2.079.350 9877 4215 Univers 00:00:00 00:00:00 37454.1.1 350.1.13.10 ity of 3.104.2.7 4.2.7.3.698 [place] .3.545850 084.8 Medica l .8 [place] 2021-11-26 2021-11-26 Travel 1.2.840.1 1.2.704.100 5286 4215 Univers 00:00:00 00:00:00 15984.1.1 350.1.13.10 ity of 3.104.2.7 4.[place].7.3.698 [place] .3.664240 084.8 Medica l .8 [place] 2021-11-23 2021-11-23 Outpatient ASH ROWLEY [facility] [id number] Univers 14:00:00 14:00:00 ity of [facility] 2021-11-19 2021-11-19 [place] 12636.2.840.1 [id number] Univers 17:58:13 23:59:00 Encounter Vania 23482.1.1 it y of 3.104.2.7 [place] .3.777847 Medica l .8 [place] 2021-11-19 2021-11-19 Outpatient R LOGAN [facility] [id number] Univers 17:58:13 23:59:00 RANIA ity of [facility] 2021-11-19 2021-11-19 [facility] 1.2.523.052 6055 4616 Univers 17:58:13 23:59:00 Encounter Vania HEALTH 350.1.13.10 ity of [place] 4.2.7.2.686 Harley as OLIVIA?BLEA [id number] Me dical KENZIEEY [address] [place] MEDICAL OFFICE [facility]ILD[facility] 2021-11-19 2021-11-19 [facility] 1.2.840.9 [id number] [id number] Univers 17:58:13 23:59:00 Encounter Vania 12672.1.1 it y of 3.104.2.7 [place] .3.478037 Medica l .8 [place] 2021-11-19 2021-11-19 Urgent Ebrahim, 1.2.840.0 [id number] [id number] Univers 17:20:00 18:04:46 Care Vania 89656.1.1 ity of 3.104.2.7 [place] .3.677146 Medica l .8 [place] 2021-11-19 2021-11-19 Urgent Ebrahim, [facility] 1.2.840.114 15377 [id number] Univers 17:20:00 18:04:46 Care [employer] 350.1.13.10 it y of [place] 4.2.7.2.686 Harley as OLIVIA?BLEA [id number] In dical SUDHAKAR [address] [place] MEDICAL [facility]ILD[facility] 2021-11-19 2021-11-19 Urgent Ebrahim, 1.2.840.9 [id number] 9366 [id number] Univers 17:20:00 18:04:46 Care Vania 18383.1.1 ity of 3.104.2.7 [place] .3.481130 Medica l .8 [place] 2021-11-19 2021-11-19 Travel 1.2.840.1 1.2.767.166 3801 4086 Univers 00:00:00 00:00:00 79345.1.1 350.1.13.10 ity of 3.104.2.7 4.[place]7.3.698 [place] .3.907730 084.8 Medica l .8 [place] 2021-11-19 2021-11-19 Travel 1.2.840.1 1.2.664.178 7026 4086 Univers 00:00:00 00:00:00 84292.1.1 350.1.13.10 ity of 3.104.2.7 4.2.7.3.698 [place] .3.703494 084.8 Medica l .8 [place] 2021-11-17 2021-11-17 Outpatient R LUCINDA WILLS [facility] [id number] Univers 14:45:00 14:45:00 ity of [facility] 2021-11-17 2021-11-17 Outpatient R LUCINDA WILLS [facility] [id number] Univers 14:45:00 14:45:00 ity of [facility] 2021-11-16 2021-11-16 Telephone Lucinda Wills 1.2.840.6 [id number] Univers 00:00:00 00:00:00 Cam 88140.1.1 ity of 3.104.2.7 [place] .3.018696 Medica l .8 [place] 2021-11-16 2021-11-16 Telephone Lucinda Wills 1.2.840.1 [id number] Univers 00:00:00 00:00:00 Cam 97248.1.1 ity of 3.104.2.7 [place] .3.109313 Medica l .8 [place] 2021-11-16 2021-11-16 Telephone Wills Lucinda 1.2.840.1 [id number] Univers 00:00:00 00:00:00 Cam 72452.1.1 ity of 3.104.2.7 [place] .3.808779 Medica l .8 [place] 2021-11-08 2021-11-08 Outpatient R REYNALDO [facility] [id number] Univers 11:15:00 11:40:32 JAMES ity o f [facility] 2021-11-08 2021-11-08 Travel 1.2.840.1 1.2.391.838 5399 9142 Univers 00:00:00 00:00:00 05078.1.1 350.1.13.10 ity of 3.104.2.7 4.2.7.3.698 [place] .3.237729 084.8 Medica l .8 [place] 2021-11-08 2021-11-08 Travel 1.2.840.1 1.2.302.690 4368 9142 Univers 00:00:00 00:00:00 71953.1.1 350.1.13.10 ity of 3.104.2.7 4.2.7.3.698 [place] .3.874767 084.8 Medica l .8 [place] 2021-11-08 2021-11-08 Travel 1.2.840.1 1.2.379.674 0377 9142 Univers 00:00:00 00:00:00 45935.1.1 350.1.13.10 ity of 3.104.2.7 4.2.7.3.698 [place] .3.270986 084.8 Medica l .8 [place] 2021-10-29 2021-10-29 Office Lucinda Wills 1.2.840.3 [id number] Univers 13:00:00 13:28:21 Visit Cam 16837.1.1 ity of 3.104.2.7 [place] .3.138301 Medica l .8 [place] 2021-10-29 2021-10-29 Office Lucinda Wills 1.2.840.4 [id number] Univers 13:00:00 13:28:21 Visit Cam 88624.1.1 ity of 3.104.2.7 [place] .3.119586 Medica l .8 [place] 2021-10-29 2021-10-29 Outpatient R LUCINDA WILLS [facility] [id number] Univers 13:00:00 13:28:21 ity of [facility] 2021-10-29 2021-10-29 Office Lucinda Wills 1.2.840.6 [id number] Univers 13:00:00 13:28:21 Visit Cam 91804.1.1 ity of 3.104.2.7 [place] .3.973132 Medica l .8 [place] 2021-10-29 2021-10-29 Outpatient R LUCINDA WILLS [facility] [id number] Univers 13:00:00 13:00:00 ity of [facility] 2021-10-29 2021-10-29 Outpatient Escobar LUCINDA WILLS [facility] [id number] Univers 13:00:00 13:00:00 ity of [facility] 2021-10-29 2021-10-29 Travel 1.2.840.1 1.2.413.844 1884 6547 Univers 00:00:00 00:00:00 12192.1.1 350.1.13.10 ity of 3.104.2.7 4.[place]7.3.698 [place] .3.955252 084.8 Medica l .8 [place] 2021-10-29 2021-10-29 Travel 1.2.840.1 1.2.285.364 6268 6547 Univers 00:00:00 00:00:00 62334.1.1 350.1.13.10 ity of 3.104.2.7 4.2.7.3.698 [place] .3.182205 084.8 Medica l .8 [place] 2021-10-29 2021-10-29 Travel 1.2.840.1 1.2.275.312 2905 6547 Univers 00:00:00 00:00:00 42774.1.1 350.1.13.10 ity of 3.104.2.7 4.2.7.3.698 [place] .3.376818 084.8 Medica l .8 [place] 2021-10-27 2021-10-27 Outpatient SHIVANI HARDING [facility] [id number] Univers 14:30:00 15:05:35 SHIVANI VAUGHN [facility] 2021-10-27 2021-10-27 Outpatient SHIVANI HARDING [facility] [id number] Univers 14:30:00 14:30:00 SHIVANI VAUGHN [facility] 2021-10-27 2021-10-27 Soaping Department Supervisor Pat Patel 1.2.840.1 [id number] Univers 12:30:00 12:45:00 Visit Pcp-Lab 93780.1.1 ity of 3.104.2.7 [place] .3.011428 Medica l .8 [place] 2021-10-27 2021-10-27 Soaping Department Supervisor Pat Patel 1.2.840.1 [id number] [facility] 12:30:00 12:45:00 Visit Pcp-Lab 04647.1.1 ity of 3.104.2.7 [place] .3.641035 Medica l .8 [place] 2021-10-27 2021-10-27 Soaping Department Supervisor Pat Patel 1.2.840.1 [id number] [facility] 12:30:00 12:45:00 Visit Pcp-Lab 50234.1.1 ity of 3.104.2.7 [place] .3.986865 Medica l .8 [place] 2021-10-27 2021-10-27 Soaping Department Supervisor Pat Patel 1.2.840.1 [id number] [facility] 12:30:00 12:45:00 Visit Pcp-Lab 28016.1.1 ity of 3.104.2.7 [place] .3.130809 Medica l .8 [place] 2021-10-27 2021-10-27 Travel 1.2.840.1 1.2.966.760 5698 7104 [facility] 00:00:00 00:00:00 97664.1.1 350.1.13.10 ity of 3.104.2.7 [place].3.698 [place] 084.8 Medica l .8 [place] 2021-10-27 2021-10-27 Travel 1.2.840.1 1.2.155.298 8833 7104 [facility] 00:00:00 00:00:00 56694.1.1 350.1.13.10 ity of 3.104.2.7 4.[place].7.3.698 [place] .3.472543 084.8 Medica l .8 [place] 2021-10-27 2021-10-27 Travel 1.2.840.1 1.2.896.329 2717 7104 [facility] 00:00:00 00:00:00 74602.1.1 350.1.13.10 ity of 3.104.2.7 4.2.7.3.698 [place] .3.741176 084.8 Medica l .8 [place] 2021-10-27 2021-10-27 Travel 1.2.840.1 1.2.832.521 3191 7104 [facility] 00:00:00 00:00:00 92284.1.1 350.1.13.10 ity of 3.104.2.7 4.2.7.3.698 [place] .3.200386 084.8 Medica l .8 [place] 2021-10-06 2021-10-06 Outpatient R SHIVANI VAUGHN [facility] [id number] [facility] 15:15:00 16:31:02 SHIVANI VAUGHN ity of [facility] 2021-10-06 2021-10-06 Travel 1.2.840.1 1.2.690.510 2656 3199 [facility] 00:00:00 00:00:00 80374.1.1 350.1.13.10 ity of 3.104.2.7 4.[place].7.3.698 [place] .3.394403 084.8 Medica l .8 [place] 2021-10-06 2021-10-06 Travel 1.2.840.1 1.2.620.319 5198 3199 [facility] 00:00:00 00:00:00 54465.1.1 350.1.13.10 ity of 3.104.2.7 4.2.7.3.698 [place] .3.647564 084.8 Medica l .8 [place] 2021-10-06 2021-10-06 Travel 1.2.840.1 1.2.890.178 7249 3199 [facility] 00:00:00 00:00:00 39606.1.1 350.1.13.10 ity of 3.104.2.7 4.2.7.3.698 [place] .3.841025 084.8 Medica l .8 [place] 2021-09-13 2021-09-13 Outpatient R REYNALDO, [facility] [id number] [facility] 11:00:00 11:00:00 JAMES erickson o f [facility] 2021-09-02 2021-09-02 Outpatient R GEOVANNI, [facility] [id number] [facility] 13:00:00 13:00:00 HONORIO ity [facility] 2021-09-02 2021-09-02 Outpatient R GEOVANNI, [facility] [id number] [facility] 13:00:00 13:00:00 HONORIO ity [facility] 2021-09-02 2021-09-02 Travel 1.2.840.1 1.2.397.307 0820 361 [facility] 00:00:00 00:00:00 32170.1.1 350.1.13.10 ity of 3.104.2.7 4.2[place]7.3.698 [place] .3.713444 084.8 Medica l .8 [place] 2021-09-02 2021-09-02 Travel 1.2.840.1 1.2.063.839 6959 361 [facility] 00:00:00 00:00:00 03273.1.1 350.1.13.10 ity of 3.104.2.7 4.2[place]7.3.698 [place] .3.567162 084.8 Medica l .8 [place] 2021-09-02 2021-09-02 Travel 1.2.840.1 1.2.764.782 6005 361 [facility] 00:00:00 00:00:00 98183.1.1 350.1.13.10 ity of 3.104.2.7 4.2.7.3.698 [place] .3.391477 084.8 Medica l .8 [place] 2021-08-26 2021-08-26 [facility] [id number] [facility] 12:59:32 23:59:00 BOUCHRA erickson [facility] 2021-08-26 2021-08-26 [facility] Arnaldo, 1.2.840.8 [id number] [facility] 12:59:32 23:59:00 [facility] Bouchra 32163.1.1 it y of 3.104.2.7 [place] .3.398125 Medica l .8 [place] 2021-08-26 2021-08-26 [facility], 1.2.840.4 [id number] [facility] 12:59:32 23:59:00 Encounter Bouchra 07546.1.1 it y of 3.104.2.7 [place] .3.411224 Medica l .8 [place] 2021-08-26 2021-08-26 [facility], 1.2.840.9 [id number] [facility] 12:59:32 23:59:00 Encounter Bouchra 13212.1.1 it y of 3.104.2.7 [place] .3.255230 Medica l [address] [place] [address] 2021-08-26 2021-08-26 [facility] [id number] [facility] 13:00:00 13:47:55 BOUCHRA ity of [facility] 2021-08-26 2021-08-26 Office [facility], 1.2.840.8 [id number] [facility] 13:00:00 13:47:55 Visit Bouchra 59487.1.1 ity of 3.104.2.7 [place] .3.315056 Medica l [address] [place] [address] 2021-08-26 2021-08-26 [facility] [id number] [facility] 13:00:00 13:47:55 BOUCHRA ity of [facility] 2021-08-26 2021-08-26 Office [facility], 1.2.840.9 [id number] [id number] [facility] 13:00:00 13:47:55 Visit Bouchra 23139.1.1 ity of 3.104.2.7 [place] .3.837436 Medica l .8 [place] 2021-08-26 2021-08-26 Travel 1.2.840.1 1.2.650.637 5800 7347 [facility] 00:00:00 00:00:00 65375.1.1 350.1.13.10 ity of 3.104.2.7 4.[place]7.3.698 [place] .3.[place]295 084.8 Medica l .8 [place] 2021-08-26 2021-08-26 Travel 1.2.840.1 1.2.069.481 6188 7347 [facility] 00:00:00 00:00:00 63111.1.1 350.1.13.10 ity of 3.104.2.7 4.2.7.3.698 [place] .3.126489 084.8 Medica l .8 [place] 2021-08-26 2021-08-26 Travel 1.2.840.1 1.2.780.728 6391 7347 [facility] 00:00:00 00:00:00 90583.1.1 350.1.13.10 ity of 3.104.2.7 4.2.7.3.698 [place] .3.510295 084.8 Medica l .8 [place] 2021-08-03 2021-08-03 Soaping Department Supervisor Tasha Sheriff [facility] 1.2.8 40.114 [id number] [facility] 17:15:00 17:30:00 Visit Shivani Vaughn 350.1.13.10 [facility] [place].2.686 [place] [phone] In dical NAL 353 [facility] 2021-08-03 2021-08-03 Soaping Department Supervisor Shivani Vaughn 1.2.840.0 [id number] Univers 17:15:00 17:30:00 Visit Tasha Sheriff [facility] Main 62771.1.1 ity of 3.104.2.7 [place] .3.811159 Medica l .8 [place] 2021-08-03 2021-08-03 Soaping Department Supervisor Shivani Vaughn 1.2.840.3 [id number] Univers 17:15:00 17:30:00 Visit Tasha Sheriff Lab Main 27290.1.1 ity of 3.104.2.7 [place] .3.049164 Medica l .8 [place] 2021-08-03 2021-08-03 SHIVANI Hamm [facility] [id number] Univers 17:15:00 17:15:00 SHIVANI VAUGHN ity of [facility] 2021-08-02 2021-08-02 Outpatient R REYNALDO, [facility] [id number] Univers 10:15:00 11:07:50 JAMES ity o f [facility] 2021-08-02 2021-08-02 Travel 1.2.840.1 1.2.327.650 2956 6890 Univers 00:00:00 00:00:00 55399.1.1 350.1.13.10 ity of 3.104.2.7 [place]7.3.698 [place] .[place] 084.8 Med[place] l .8 [place] 2021-08-02 2021-08-02 Travel 1.2.840.1 1.2.850.503 8941 6890 Univers 00:00:00 00:00:00 45095.1.1 350.1.13.10 ity of 3.104.2.7 4.2.7.3.698 [place] .3.268649 084.8 Med[place] l .8 [place] 2021-08-02 2021-08-02 Travel 1.2.840.1 1.2.709.354 3071 6890 Univers 00:00:00 00:00:00 72012.1.1 350.1.13.10 ity of 3.104.2.7 4.2.7.3.698 [place] .3.901581 084.8 Medica l .8 [place] 2021-07-29 2021-07-29 [facility] [id number] Univers 13:26:56 23:59:00 BOUCHRA ity of [facility] 2021-07-29 2021-07-29 [facility], 1.2.840.5 [id number] Univers 13:26:56 23:59:00 Encounter Bouchra 97274.1.1 it y of 3.104.2.7 [place] .3.504796 Medica l .8 [place] 2021-07-29 2021-07-29 [facility]3 [id number] Univers 13:26:56 23:59:00 Encounter Bouchra 05210.1.1 it y of 3.104.2.7 [place] .3.984214 Medica l .8 [place] 2021-07-29 2021-07-29 [facility], 1.2.840.1 [id number] Univers 13:26:56 23:59:00 Encounter Bouchra 16091.1.1 it y of 3.104.2.7 [place] .3.456849 Medica l .8 [place] 2021-07-29 2021-07-29 Office [facility] 1.2.779.936 7641 [id number] Univers 13:20:00 15:16:49 Visit Bouchra ARELLANO 350.1.13.10 it y of CARE 4.2.7.2.686 Michelle VALDES [phone] In dical 198 [place] 2021-07-29 2021-07-29 [facility] 31034 [id number] Univers 13:20:00 15:16:49 BOUCHRA ity of [facility] 2021-07-29 2021-07-29 Office [facility], 1.2.840.4 [id number] [id number] Univers 13:20:00 15:16:49 Visit Bouchra 87261.1.1 ity of 3.104.2.7 [place] .3.759514 Medica l .8 [place] 2021-07-29 2021-07-29 Office [facility], 1.2.840.3 [id number] [id number] Univers 13:20:00 15:16:49 Visit Bouchra 55505.1.1 ity of 3.104.2.7 [place] .3.340558 Medica l .8 [place] 2021-07-29 2021-07-29 Letter [facility], 1.2.840.6 [id number] [id number] Univers 00:00:00 00:00:00 (Out) Bouchra 49134.1.1 ity of 3.104.2.7 [place] .3.250564 Medica l .8 [place] 2021-07-29 2021-07-29 Travel 1.2.840.1 1.2.277.201 3734 9351 Univers 00:00:00 00:00:00 62777.1.1 350.1.13.10 ity of 3.104.2.7 4.2.7.3.698 [place]3.9976[place] 084.8 Medica l .8 [place] 2021-07-29 2021-07-29 Dustin Mcintosh, 1.2.840.8 [id number] [id number] Univers 00:00:00 00:00:00 (Out) Bouchra 35785.1.1 ity of 3.104.2.7 [place] .3.988219 Medica l .8 [place] 2021-07-29 2021-07-29 Travel 1.2.840.1 1.2.829.887 1232 9351 Univers 00:00:00 00:00:00 98306.1.1 350.1.13.10 ity of 3.104.2.7 4.2.7.3.698 [place]3.699423 084.8 Medica l .8 [place] 2021-07-29 2021-07-29 Dustin Mcintosh, 1.2.840.6 [id number] [id number] Univers 00:00:00 00:00:00 (Out) Bouchra 74558.1.1 ity of 3.104.2.7 [place] .3.362613 Medica l .8 [place] 2021-07-29 2021-07-29 Travel 1.2.840.1 1.2.338.728 8244 9351 Univers 00:00:00 00:00:00 06832.1.1 350.1.13.10 ity of 3.104.2.7 4.2.7.3.698 [place]3.868558 084.8 Medica l .8 [place] 2021-07-22 2021-07-22 [facility] 1.2.840.114 9 [id number] Univers 14:00:00 23:59:00 Ryan Burnham 350.1.13.10 ity of LI[place] 4.2.7.2.686 [facility] [phone] [facility] 801 [place] 2021-07-22 2021-07-22 [facility] 1.2.840.3 [id number] Univers 14:00:00 23:59:00 Encounter , Ryan 19764.1.1 it y of 3.104.2.7 [place] .3.682537 Medica l .8 [place] 2021-07-22 2021-07-22 [facility] 1.2.840.7 [id number] Univers 14:00:00 23:59:00 Encounter , Ryan 86097.1.1 it y of 3.104.2.7 [place] .3.392132 Medica l .8 [place] 2021-07-22 2021-07-22 [facility] 1.2.840.9 [id number] Univers 14:00:00 23:59:00 Encounter , Ryan 12932.1.1 it y of 3.104.2.7 [place] .3.222521 Medica l .8 [place] 2021-07-22 2021-07-22 [facility] 1.2.840.114 9 [id number] Univers 10:46:11 13:59:00 Encounter , Ryan SPECIALTY 350.1.13.10 ity of CARE 4.2.7.2.686 [facility] AT [phone] [facility] BOBBY [address] [facility] 2021-07-22 2021-07-22 [facility] 1.2.840.1 [id number] Univers 10:46:11 13:59:00 Encounter , Ryan 33696.1.1 it y of 3.104.2.7 [place] .3.790159 Medica l .8 [place] 2021-07-22 2021-07-22 [facility] 1.2.840.1 [id number] Univers 10:46:11 13:59:00 Encounter , Ryan 86050.1.1 it y of 3.104.2.7 [place] .3.084812 Medica l .8 [place] 2021-07-22 2021-07-22 [facility] 1.2.840.6 [id number] Univers 10:46:11 13:59:00 Encounter , Ryan 17047.1.1 it y of 3.104.2.7 [place] .3.531362 Medica l .8 [place] 2021-07-22 2021-07-22 Outpatient R GEOVANNI, [facility] [id number] Univers 13:00:00 13:45:02 HONORIO ity [facility] 2021-07-22 2021-07-22 Outpatient R GALARZA, [facility] [id number] Univers 13:00:00 13:45:02 HONORIO ity [facility] 2021-07-22 2021-07-22 Outpatient R GALARZA, [facility] [id number] Univers 13:00:00 13:00:00 [place] ity [facility] 2021-07-22 2021-07-22 Office Alijanipour 1.2.840.9 [id number] Univers 10:15:00 11:55:28 Visit , Ryan 54256.1.1 ity of 3.104.2.7 [place] .3.826116 Medica l .8 [place] 2021-07-22 2021-07-22 Outpatient R ALIJANIPOUR [facility] [id number] Univers 10:15:00 11:55:28 , [facility] [place] [facility] 2021-07-22 2021-07-22 Office Alijanipour 1.2.840.5 [id number] Univers 10:15:00 11:55:28 Visit , Ryan 66101.1.1 ity of 3.104.2.7 [place] .3.269510 Medica l .8 [place] 2021-07-22 2021-07-22 Office Alijanipour 1.2.840.5 [id number] Univers 10:15:00 11:55:28 Visit , Ryan 28380.1.1 ity of 3.104.2.7 [place] .3.260706 Medica l .8 [place] 2021-07-22 2021-07-22 Outpatient R ALIJANIPOUR [facility] [id number] Univers 10:46:11 10:46:11 , RYAN ity of [facility] 2021-07-22 2021-07-22 Outpatient R ALIBRANDI [facility] [id number] Univers 10:15:00 10:15:00 , RYAN ity of [facility] 2021-07-22 2021-07-22 Outpatient R ALIBRANDI [facility] [id number] Univers 10:15:00 10:15:00 , RYAN ity of [facility] 2021-07-22 2021-07-22 Abstract Zitaantonieta 1.2.840.7 [id number] Univers 00:00:00 00:00:00 , Ryan 49122.1.1 ity of 3.104.2.7 [place] .3.593437 Medica l .8 [place] 2021-07-22 2021-07-22 Travel 1.2.840.1 1.2.750.844 6389 8425 Univers 00:00:00 00:00:00 72977.1.1 350.1.13.10 ity of 3.104.2.7 4.2.7.3.698 [place]3.804628 084.8 Medica l .8 [place] 2021-07-22 2021-07-22 Letter Alijanipour 1.2.840.4 [id number] Univers 00:00:00 00:00:00 (Out) , Ryan 20414.1.1 ity of 3.104.2.7 [place] .3.326573 Medica l .8 [place] 2021-07-22 2021-07-22 Letter Alijanipour 1.2.840.6 [id number] Univers 00:00:00 00:00:00 (Out) , Ryan 83183.1.1 ity of 3.104.2.7 [place] .3.843284 Medica l .8 [place] 2021-07-22 2021-07-22 Travel 1.2.840.1 1.2.160.381 5400 8425 Univers 00:00:00 00:00:00 11723.1.1 350.1.13.10 ity of 3.104.2.7 4.2.7.3.698 [place] .3.400593 084.8 Medica l .8 [place] 2021-07-22 2021-07-22 Abstract Alijanipour 1.2.840.6 [id number] Univers 00:00:00 00:00:00 , Ryan 66951.1.1 ity of 3.104.2.7 [place] .3.222195 Medica l .8 [place] 2021-07-22 2021-07-22 Letter Alijanipour 1.2.840.1 [id number] Univers 00:00:00 00:00:00 (Out) , Ryan 08778.1.1 ity of 3.104.2.7 [place] .3.245761 Medica l .8 [place] 2021-07-22 2021-07-22 Travel 1.2.840.1 1.2.921.878 5944 8425 Univers 00:00:00 00:00:00 40106.1.1 350.1.13.10 ity of 3.104.2.7 4.2.7.3.698 [place] .3.921690 084.8 Medica l .8 [place] 2021-07-22 2021-07-22 Abstract Alijanipour 1.2.840.5 [id number] Univers 00:00:00 00:00:00 , Ryan 01436.1.1 ity of 3.104.2.7 [place] .3.988816 Medica l .8 [place] 2021-07-22 2021-07-22 Letter Alijanipour 1.2.840.0 [id number] Univers 00:00:00 00:00:00 (Out) , Ryan 17201.1.1 ity of 3.104.2.7 [place] .3.357216 Medica l .8 [place] 2021-07-22 2021-07-22 Travel 1.2.840.1 1.2.251.637 0587 8425 Univers 00:00:00 00:00:00 11073.1.1 350.1.13.10 ity of 3.104.2.7 4.2.7.3.698 [place] .3.530653 084.8 Medica l .8 [place] 2021-07-22 2021-07-22 Abstract Benjamín 1.2.840.2 [id number] Univers 00:00:00 00:00:00 , Ryan 00262.1.1 ity of 3.104.2.7 [place] .3.723358 Medica l .8 [place] 2021-07-21 2021-07-21 Outpatient R RODERICK [facility] [id number] Univers 14:30:00 15:30:35 RODERICK [facility] 2021-07-21 2021-07-21 Outpatient R RODERICK [facility] [id number] Univers 14:30:00 15:30:35 [facility]ICK [facility] 2021-07-21 2021-07-21 Outpatient R [facility]ICK [facility] [id number] Univers 14:30:00 14:30:00 [facility]ICK [facility] 2021-07-15 2021-07-15 Orders Doctor 1.2.840.1 [id number] Univers 00:00:00 00:00:00 Only Unassigned, 93111.1.1 ity of [place] 3.104.2.7 [place] .3.298482 Medica l .8 [place] 2021-07-15 2021-07-15 Orders Doctor 1.2.840.0 [id number] Univers 00:00:00 00:00:00 Only Unassigned, 84557.1.1 ity of [place] 3.104.2.7 [place] .3.375928 Medica l .8 [place] 2021-07-15 2021-07-15 Orders Doctor 1.2.840.4 [id number] Univers 00:00:00 00:00:00 Only Unassigned, 68273.1.1 ity of [place] 3.104.2.7 [place] .3.812164 Medica l .8 [place] 2021-07-15 2021-07-15 Orders Doctor 1.2.840.7 [id number] Univers 00:00:00 00:00:00 Only Unassigned, 29088.1.1 ity of [place] 3.104.2.7 [place] .3.365014 Medica l .8 [place] 2021-07-09 2021-07-09 Emergency [facility] [id number] [facility] 12:46:00 12:46:00 14 2021-07-08 2021-07-08 Outpatient Escobar GALARZA, [facility] [id number] Univers 13:00:00 13:00:00 HONORIO ity [facility] 2021-07-08 2021-07-08 [facility]patient [facility] [id number] Univers 13:00:00 13:00:00 [place] ity [facility] 2021-06-30 2021-06-30 Telephone Nazeer, 1.2.840.3 [id number] Univers 00:00:00 00:00:00 Jerry 72436.1.1 ity of 3.104.2.7 [place] .3.307329 Medica l .8 [place] 2021-06-30 2021-06-30 Telephone Nazeer, 1.2.840.0 [id number] 900 [id number] Univers 00:00:00 00:00:00 Jerry 37182.1.1 ity of 3.104.2.7 [place] .3.547312 Medica l .8 [place] 2021-06-30 2021-06-30 Telephone Nazeer, 1.2.840.7 [id number] 900 [id number] Univers 00:00:00 00:00:00 Jerry 03530.1.1 ity of 3.104.2.7 [place] .3.427233 Medica l .8 [place] 2021-06-30 2021-06-30 Telephone Nazeer, 1.2.840.6 [id number] 900 [id number] Univers 00:00:00 00:00:00 Jerry 96505.1.1 ity of 3.104.2.7 [place] .3.108332 Medica l .8 [place] 2021-06-24 2021-06-24 Imm/Inj Nurse, Pcp Immunization [facility] 1. 2.840.114 [id number] Univers 16:30:00 16:40:00 Visit Gideon Montez PRIMARY 350.1.13. 10 ity of CARE 4.2.7.2.686 Michelle VALDES [id number] In dical 421 [place] 2021-06-24 2021-06-24 Imm/Inj Gideon Montez 1.2.840.5 [id number] [id number] Univers 16:30:00 16:40:00 Visit Nurse, Pcp Immunization 46724.1.1 ity of 3.104.2.7 [place] .3.137882 Medica l .8 [place] 2021-06-24 2021-06-24 Imm/Inj Gideon Montez 1.2.840.9 [id number] Univers 16:30:00 16:40:00 Visit Nurse, Pcp Immunization 26364.1.1 ity of 3.104.2.7 [place] .3.254063 Medica l .8 [place] 2021-06-24 2021-06-24 Imm/Inj Gideon Montez 1.2.840.5 020 [id number] Univers 16:30:00 16:40:00 Visit Nurse, Pcp Immunization 42512.1.1 ity of 3.104.2.7 [place] .3.738884 Medica l .8 [place] 2021-06-24 2021-06-24 Imm/Inj Gideon Montez 1.2.840.6 756 [id number] Univers 16:30:00 16:40:00 Visit Nurse, Pcp Immunization 84175.1.1 ity of 3.104.2.7 [place] .3.006319 Medica l .8 [place] 2021-06-24 2021-06-24 Outpatient R CARLOS MANUEL [facility] [id number] Univers 16:30:00 16:30:00 GIDEON erickson of [facility] 2021-06-24 2021-06-24 Soaping Department Supervisor Pcp-Lab [facility] 1.2.840.114 [id number] [id number] Univers 16:15:00 16:30:00 Visit Bethel Isaacs PRIMARY 350.1.13.10 ity of CARE 4.2.7.2.686 Michelle VALDES [id number] In dical 366 [place] 2021-06-24 2021-06-24 Soaping Department Supervisor Bethel Isaacs 1.2.840.8 [id number] Univers 16:15:00 16:30:00 Visit Pcp-Lab 96192.1.1 ity of 3.104.2.7 [place] .3.768645 Medica l .8 [place] 2021-06-24 2021-06-24 Soaping Department Supervisor Bethel Isaacs 1.2.840.4 [id number] Univers 16:15:00 16:30:00 Visit Pcp-Lab 37271.1.1 ity of 3.104.2.7 [place] .3.906572 Medica l .8 [place] 2021-06-24 2021-06-24 Soaping Department Supervisor Bethel Isaacs 1.2.840.4 [id number] Univers 16:15:00 16:30:00 Visit Pcp-Lab 76598.1.1 ity of 3.104.2.7 [place] .3.598374 Medica l .8 [place] 2021-06-24 2021-06-24 Soaping Department Supervisor Bethel Isaacs 1.2.840.2 [id number] Univers 16:15:00 16:30:00 Visit Pcp-Lab 58298.1.1 ity of 3.104.2.7 [place] .3.852195 Medica l .8 [place] 2021-06-24 2021-06-24 Outpatient R KOURTNEY [facility] [id number] Univers 16:15:00 16:15:00 BETHEL erickson [facility] 2021-06-24 2021-06-24 Outpatient R KOURTENY [facility] [id number] Univers 14:40:00 16:08:00 BETHEL erickson [facility] 2021-06-24 2021-06-24 Office Bethel Isaacs 1.2.840.4 [id number] Univers 14:40:00 16:08:00 Visit Health, Tg Hormone 50095.1.1 ity of 3.104.2.7 [place] .3.694565 Medica l .8 [place] 2021-06-24 2021-06-24 Outpatient R KOURTNEY [facility] [id number] Univers 14:40:00 16:08:00 BETHEL itadrian of [facility] 2021-06-24 2021-06-24 Office Bethel Isaacs 1.2.840.8 [id number] Univers 14:40:00 16:08:00 Visit Health, Tg Hormone 81751.1.1 ity of 3.104.2.7 [place] .3.354309 Medica l .8 [place] 2021-06-24 2021-06-24 Office Bethel Isaacs 1.2.840.4 [id number] Univers 14:40:00 16:08:00 Visit Health, Tg Hormone 48593.1.1 ity of 3.104.2.7 [place] .3.714822 Medica l .8 [place] 2021-06-24 2021-06-24 Office Bethel Isaacs 1.2.840.6 [id number] Univers 14:40:00 16:08:00 Visit Health, Tg Hormone 52094.1.1 ity of 3.104.2.7 [place] .3.268303 Medica l .8 [place] 2021-06-24 2021-06-24 Outpatient R KOURTNEY [facility] [id number] Univers 14:40:00 14:40:00 BETHEL ity of [facility] 2021-06-24 2021-06-24 Travel 1.2.840.1 1.2.199.901 0657 0448 Univers 00:00:00 00:00:00 97887.1.1 350.1.13.10 ity of 3.104.2.7 4.2.7.3.698 [place] .3.536265 084.8 Medica l .8 [place] 2021-06-24 2021-06-24 Travel 1.2.840.1 1.2.856.352 9199 0448 Univers 00:00:00 00:00:00 51208.1.1 350.1.13.10 ity of 3.104.2.7 4.2.7.3.698 [place] .3.190861 084.8 Medica l .8 [place] 2021-06-24 2021-06-24 Travel 1.2.840.1 1.2.439.989 9989 0448 [facility] 00:00:00 00:00:00 69533.1.1 350.1.13.10 ity of 3.104.2.7 4.2.7.3.698 [place] .3.254999 084.8 Medica l .8 [place] 2021-06-24 2021-06-24 Travel 1.2.840.1 1.2.261.090 1376 0448 [facility] 00:00:00 00:00:00 09077.1.1 350.1.13.10 ity of 3.104.2.7 4.2.7.3.698 [place] .3.679734 084.8 Medica l .8 [place] 2021-06-17 2021-06-17 Soaping Department Supervisor James Jacobs 1.2.840.8 [id number] [facility] 16:00:00 16:15:00 Visit Pcp-Lab 08627.1.1 ity of 3.104.2.7 [place] .3.009028 Medica l .8 [place] 2021-06-17 2021-06-17 Soaping Department Supervisor James Jacobs 1.2.840.0 [id number] [facility] 16:00:00 16:15:00 Visit Pcp-Lab 55016.1.1 ity of 3.104.2.7 [place] .3.764340 Medica l .8 [place] 2021-06-17 2021-06-17 Soaping Department Supervisor James Jacobs 1.2.840.2 [id number] [facility] 16:00:00 16:15:00 Visit Pcp-Lab 78026.1.1 ity of 3.104.2.7 [place] .3.374595 Medica l .8 [place] 2021-06-17 2021-06-17 Soaping Department Supervisor James Jacobs 1.2.840.1 [id number] Univers 16:00:00 16:15:00 Visit Pcp-Lab 61616.1.1 ity of 3.104.2.7 [place] .3.256493 Medica l .8 [place] 2021-06-17 2021-06-17 Soaping Department Supervisor James Jacobs 1.2.840.7 [id number] Univers 16:00:00 16:15:00 Visit Pcp-Lab 03956.1.1 ity of 3.104.2.7 [place] .3.181976 Medica l .8 [place] 2021-06-17 2021-06-17 [facility] [id number] Univers 14:00:00 14:00:00 [facility] [place] [facility] 2021-06-17 2021-06-17 [facility] [id number] Univers 14:00:00 14:00:00 [facility] [place] [facility] 2021-06-17 2021-06-17 Travel 1.2.840.1 1.2.217.899 3084 3149 Univers 00:00:00 00:00:00 74891.1.1 350.1.13.10 ity of 3.104.2.7 4.2.7.3.698 [place] .3.004213 084.8 Medica l .8 [place] 2021-06-17 2021-06-17 Travel 1.2.840.1 1.2.055.484 4007 3149 Univers 00:00:00 00:00:00 53410.1.1 350.1.13.10 ity of 3.104.2.7 4.2.7.3.698 [place] .3.266321 084.8 Medica l .8 [place] 2021-06-17 2021-06-17 Travel 1.2.840.1 1.2.858.960 0881 3149 Univers 00:00:00 00:00:00 29808.1.1 350.1.13.10 ity of 3.104.2.7 4.2.7.3.698 [place] .3.694009 084.8 Medica l .8 [place] 2021-06-17 2021-06-17 Travel 1.2.840.1 1.2.149.678 2174 3149 Univers 00:00:00 00:00:00 63879.1.1 350.1.13.10 ity of 3.104.2.7 4.2.7.3.698 [place] .3.979821 084.8 Medica l .8 [place] 2021-06-17 2021-06-17 Travel 1.2.840.1 1.2.300.721 0799 3149 Univers 00:00:00 00:00:00 62696.1.1 350.1.13.10 ity of 3.104.2.7 4.2.7.3.698 [place] .3.993759 084.8 Medica l .8 [place] 2021-06-14 2021-06-14 Outpatient R REYNALDO, [facility] [id number] Univers 11:00:00 12:13:42 JAMES braxton f [facility] 2021-06-14 2021-06-14 Travel 1.2.840.1 1.2.695.917 7377 7514 Univers 00:00:00 00:00:00 45662.1.1 350.1.13.10 ity of 3.104.2.7 4.2.7.3.698 [place] .3.801872 084.8 Medica l .8 [place] 2021-06-14 2021-06-14 Travel 1.2.840.1 1.2.300.513 3602 7514 Univers 00:00:00 00:00:00 87268.1.1 350.1.13.10 ity of 3.104.2.7 4.2.7.3.698 [place] .3.124040 084.8 Medica l .8 [place] 2021-06-14 2021-06-14 Travel 1.2.840.1 1.2.459.734 7776 7514 Univers 00:00:00 00:00:00 38814.1.1 350.1.13.10 ity of 3.104.2.7 4.2.7.3.698 [place] .3.598859 084.8 Medica l .8 [place] 2021-06-14 2021-06-14 Travel 1.2.840.1 1.2.986.749 3785 7514 Univers 00:00:00 00:00:00 13445.1.1 350.1.13.10 ity of 3.104.2.7 4.2.7.3.[place] .3.462044 084.8 Medica l .8 [place] 2021-06-10 2021-06-10 Patient Burton, 1.2.840.9 [id number] [facility] 00:00:00 00:00:00 Outreach Britt J 62874.1.1 ity of 3.104.2.7 [place] .3.826635 Medica l .8 [place] 2021-06-10 2021-06-10 Patient Burton, 1.2.840.6 [id number] [facility] 00:00:00 00:00:00 Outreach Britt J 63706.1.1 ity of 3.104.2.7 [place] .3.081827 Medica l .8 [place] 2021-06-10 2021-06-10 Patient Burton, 1.2.840.1 [id number] [facility] 00:00:00 00:00:00 Outreach Britt J 40772.1.1 ity of 3.104.2.7 [place] .3.565574 Medica l .8 [place] 2021-06-10 2021-06-10 Patient Burton, 1.2.840.8 [id number] [facility] 00:00:00 00:00:00 Outreach Britt J 76829.1.1 ity of 3.104.2.7 [place] .3.352588 Medica l .8 [place] 2021-06-03 2021-06-03 Outpatient Escobar GALARZA [facility] [id number] [facility] 14:00:00 14:22:42 HONORIO ity of [facility] 2021-06-032021-06-03 Travel 1.2.840.1 1.2.842.748 [id number] [id number] [facility] 00:00:00 00:00:00 29130.1.1 350.1.13.10 ity of 3.104.2.7 4.[place]7.3.698 [place] .3.378462 084.8 Medica l .8 [place] 2021-06-03 2021-06-03 Travel 1.2.840.1 1.2.441.646 6136 [id number] [facility] 00:00:00 00:00:00 90433.1.1 350.1.13.10 ity of 3.104.2.7 4.2.7.3.698 [place] .3.123473 084.8 Medica l .8 [place] 2021-06-03 2021-06-03 Travel 1.2.840.1 1.2.664.749 1633 [id number] [facility] 00:00:00 00:00:00 39226.1.1 350.1.13.10 ity of 3.104.2.7 4.2.7.3.698 [place] .3.102814 084.8 Medica l .8 [place] 2021-06-03 2021-06-03 Travel 1.2.840.1 1.2.509.305 1780 4897 [facility] 00:00:00 00:00:00 25128.1.1 350.1.13.10 ity of 3.104.2.7 4.[place].7.3.698 [place] .3.852671 084.8 Medica l .8 [place] 2021-05-26 2021-05-26 [facility], 1.2.840.8 [id number] [facility] 09:40:00 23:59:00 Encounter Burke De La Cruz 15896.1.1 ity of 3.104.2.7 [place] .3.257121 Medica l .8 [place] 2021-05-26 2021-05-26 [facility], 1.2.840.0 [id number] [facility] 09:40:00 23:59:00 Encounter Burke De La Cruz 60288.1.1 ity of 3.104.2.7 [place] .3.309903 Medica l .8 [place] 2021-05-26 2021-05-26 [facility], 1.2.840.3 [id number] [facility] 09:40:00 23:59:00 Encounter Burke De La Cruz 22693.1.1 ity of 3.104.2.7 [place] .3.232943 Medica l .8 [place] 2021-05-26 2021-05-26 [id number] [facility] 00:00:00 00:00:00 BURKE ity of [facility] 2021-05-25 2021-05-25 Emergency [facility] [id number] [facility] 23:19:00 23:19:00 2021-05-24 2021-05-24 [facility] [id number] [facility] 11:00:00 11:31:18 JAMES bernaly o f [facility] 2021-05-24 2021-05-24 Travel 1.2.840.1 1.2.074.813 [id number] [facility] 00:00:00 00:00:00 03163.1.1 350.1.13.10 ity of 3.104.2.7 4.[place]7.3.698 [place] .3.915400 084.8 Medica l .8 [place] 2021-05-24 2021-05-24 Travel 1.2.840.1 1.2.774.109 9751 [id number] [facility] 00:00:00 00:00:00 37399.1.1 350.1.13.10 ity of 3.104.2.7 4.2.7.3.698 [place] .3.448735 084.8 Medica l .8 [place] 2021-05-24 2021-05-24 Travel 1.2.840.1 1.2.968.954 5211 1167 [facility] 00:00:00 00:00:00 35865.1.1 350.1.13.10 ity of 3.104.2.7 4.[place]7.3.698 [place] .3.276829 084.8 Medica l .8 [place] 2021-05-10 2021-05-10 Outpatient R SELF, [facility] [id number] [facility] 08:45:00 08:45:00 JAMES erickson o f [facility] 2021-04-29 2021-04-29 Outpatient R GEOVANNI, [facility] [id number] [facility] 13:00:00 13:33:16 HONORIO ity [facility] 2021-04-29 2021-04-29 Outpatient R GEOVANNI, [facility] [id number] [facility] 13:00:00 13:00:00 HONROIO ity [facility] 2021-04-29 2021-04-29 Travel 1.2.840.1 1.2.650.032 [id number] [facility] 00:00:00 00:00:00 31406.1.1 350.1.13.10 ity of 3.104.2.7 4.[place]7.3.698 [place] .3.600572 084.8 Medica l .8 [place] 2021-04-29 2021-04-29 Travel 1.2.840.1 1.2.969.749 2485 [id number] [facility] 00:00:00 00:00:00 05800.1.1 350.1.13.10 ity of 3.104.2.7 4.2[place]7.3.698 [place] .3.680895 084.8 Medica l .8 [place] 2021-03-18 2021-03-18 Outpatient R GALARZA, [facility] [id number] [facility] 15:00:00 15:00:00 HONORIO ity [facility] 2021-03-18 2021-03-18 Travel 1.2.840.1 1.2.455.725 [id number] [facility] 00:00:00 00:00:00 42304.1.1 350.1.13.10 ity of 3.104.2.7 4.[place]7.3.698 [place] .3.926314 084.8 Medica l .8 [place] 2021-03-15 2021-03-15 Outpatient R SELF, [facility] [id number] Univers 10:15:00 10:15:00 JAMES erickson o f [facility] 2021-02-25 2021-02-25 [facility] [id number] Univers 09:00:00 09:00:00 HONORIO adrian [facility] 2021-02-25 2021-02-25 Travel 1.2.840.1 1.2.120.034 [id number] Univers 00:00:00 00:00:00 47510.1.1 350.1.13.10 ity of 3.104.2.[place].698 [place] .3.832[place] 084.8 Medica l .8 [place] 2021-02-15 2021-02-15 Outpatient R REYNALDO, [facility] [id number] Univers 11:00:00 11:00:00 JAMES braxton [facility] 2021-02-15 2021-02-15 Travel 1.2.840.1 1.2.439.984 [id number] Univers 00:00:00 00:00:00 92577.1.1 350.1.13.10 ity of 3.104.2.[place].698 [place] .3.413[place] 084.8 Medica l .8 [place] 2021-02-11 2021-02-11 Outpatient [facility] [id number] Univers 11:00:00 11:00:00 HONORIO adrian [facility] 2021-02-11 2021-02-11 Travel 1.2.840.1 1.2.516.939 [id number] Univers 00:00:00 00:00:00 58471.1.1 350.1.13.10 ity of 3.104.2.[place].698 [place]3.433346 084.8 Medica l .8 [place] 2021-01-28 2021-01-28 Soaping Department Supervisor Paolo Rivera 1.2.840.8 [id number] Univers 13:53:29 14:08:29 Visit Pcp-Lab 70612.1.1 ity of 3.104.2.7 [place] .3.448179 Medica l .8 [place] 2021-01-28 2021-01-28 Outpatient R GALARZA, [facility] [id number] Univers 13:00:00 13:00:00 HONORIO ity of [facility] 2021-01-28 2021-01-28 Travel 1.2.840.1 1.2.330.037 [id number] Univers 00:00:00 00:00:00 60521.1.1 350.1.13.10 ity of 3.104.2.[place].6829[place] 084.8 Medica l .8 [place] 2021-01-25 2021-01-25 Outpatient R REYNALDO, [facility] [id number] Univers 09:30:00 09:30:00 JAMES gabeadrian o [facility] 2021-01-25 2021-01-25 Travel 1.2.840.1 1.2.623.381 [id number] [id number] Univers 00:00:00 00:00:00 64227.1.1 350.1.13.10 ity of 3.104.2.[place]3.9826[place] 084.8 Medica l .8 [place] 2021-01-13 2021-01-13 Outpatient R REYNALDO, [facility] [id number] Univers 16:00:00 16:00:00 JAMES braxton [facility] 2021-01-13 2021-01-13 Travel 1.2.840.1 1.2.478.348 [id number] [id number] Univers 00:00:00 00:00:00 80199.1.1 350.1.13.10 ity of 3.104.2.7 [place].3.698 [place] .3.890893 084.8 Medica l .8 [place] 2020-12-31 2020-12-31 Soaping Department Supervisor Tim Holguin 1.2.840.3 [id number] Univers 16:38:39 16:54:09 Visit Pcp-Lab 83911.1.1 ity of 3.104.2.7 [place] .3.590372 Medica l .8 [place] 2020-12-31 2020-12-31 Outpatient Escobar GALARZA [facility] [id number] Univers 16:00:00 16:00:00 HONORIO erickson [facility] 2020-12-31 2020-12-31 Travel 1.2.840.1 1.2.788.441 [id number] [id number] Univers 00:00:00 00:00:00 46508.1.1 350.1.13.10 ity of 3.104.2.[place].698 [place]3.238533 084.8 Medica l .8 [place] 2020-12-28 2020-12-28 Orders Doctor 1.2.840.8 [id number] Univers 00:00:00 00:00:00 Only Unassigned, 95480.1.1 ity of [place] 3.104.2.7 [place] .3.280953 Medica l .8 [place] 2020-12-24 2020-12-24 Outpatient Escobar EZIO [facility] [id number] Univers 11:00:00 11:00:00 TIM gabe y [facility] 2020-12-24 2020-12-24 Travel 1.2.840.1 1.2.174.089 [id number] Univers 00:00:00 00:00:00 32433.1.1 350.1.13.10 ity of 3.104.2.7 [place].3.698 [place]3.586701 084.8 Medica l .8 [place] 2020-12-17 2020-12-17 Outpatient Escobar GALARZA [facility] [id number] Univers 11:00:00 11:00:00 HONORIO itadrian [facility] 2020-11-26 2020-11-26 Outpatient Escobar GALARZA [facility] [id number] Univers 16:00:00 16:00:00 HONORIO erickson [facility] 2020-11-26 2020-11-26 Travel 1.2.840.1 1.2.812.777 [id number] [id number] Univers 00:00:00 00:00:00 08488.1.1 350.1.13.10 ity of 3.104.2.7 [place].3.698 [place] .3.7425[place] 084.8 Medica l .8 [place] 2020-11-26 2020-11-26 Travel 1.2.840.1 1.2.896.522 7019 0854 Univers 00:00:00 00:00:00 92642.1.1 350.1.13.10 ity of 3.104.2.7 [place].3.698 [place] .3.838059 084.8 Medica l .8 [place] 2020-11-21 2020-11-21 Imm/Inj Gideon Montez 1.2.840.7 [id number] Univers 10:04:35 10:09:35 Visit [facility], [facility] 28801.1.1 ity of 3.104.2.7 [place] .3.393897 Medica l .8 [place] 2020-11-21 2020-11-21 Outpatient R CARLOS MANUEL [facility] [id number] Univers 10:05:00 10:05:00 GIDEON erickson [facility] 2020-11-17 2020-11-17 Outpatient R CHELSY ROMO [facility] [id number] Univers 15:45:00 15:45:00 ity of [facility] 2020-11-17 2020-11-17 Travel 1.2.840.1 1.2.201.289 [id number] [id number] Univers 00:00:00 00:00:00 23510.1.1 350.1.13.10 ity of 3.104.2.7 [place]7.3.698 [place] .3.180077 084.8 Medica l .8 [place] 2020-11-16 2020-11-16 Orders Doctor 1.2.840.5 [id number] Univers 00:00:00 00:00:00 Only Unassigned, 92079.1.1 ity of [place] 3.104.2.7 [place] .3.338949 Medica l .8 [place] 2020-11-12 2020-11-12 Outpatient R GALARZA, [facility] [id number] Univers 08:00:00 08:00:00 HONORIO ity of [facility] 2020-11-12 2020-11-12 Travel 1.2.840.1 1.2.790.133 [id number] Univers 00:00:00 00:00:00 07381.1.1 350.1.13.10 ity of 3.104.2.7 4.[place]7.3.698 [place] .3.875058 084.8 Medica l .8 [place] 2020-10-29 2020-10-29 Outpatient R EZIO, [facility] [id number] Univers 09:30:00 09:30:00 TIM bernal y [facility] 2020-10-24 2020-10-24 Imm/Inj Gio Martinez 1.2.840.1 [id number] Univers 09:54:36 10:09:56 Visit Immunization, [place] 19375.1.1 ity of 3.104.2.7 [place] .3.675866 Medica l .8 [place] 2020-10-24 2020-10-24 Outpatient Escobar MARTINEZ, [facility] [id number] Univers 10:00:00 10:00:00 GIO ity [facility] 2020-10-24 2020-10-24 Travel 1.2.840.1 1.2.449.405 [id number] Univers 00:00:00 00:00:00 98819.1.1 350.1.13.10 ity of 3.104.2.7 [place].3.698 [place] .3.915846 084.8 Medica l .8 [place] 2020-09-25 2020-09-26 Emergency E BRINDA, [facility] [id number] [facility] 23:49:00 10:04:00 ALAINA Medica [facility] 2020-09-17 2020-09-17 Telephone Jenni Montes.2.840.3 [id number] Univers 00:00:00 00:00:00 Nilton Mustapha 47370.1.1 i ty of 3.104.2.7 [place] .3.193020 Medica l .8 [place] 2020-08-18 2020-08-18 Outpatient R CHELSY ROMO [facility] [id number] Univers 15:00:00 15:00:00 ity of [facility] 2020-07-08 2020-07-08 Office Simon 1.2.840.1 [id number] Univers 12:55:33 15:36:41 Visit Nilton A 20834.1.1 i ty of 3.104.2.7 [place] .3.988388 Medica l .8 [place] 2020-07-08 2020-07-08 Outpatient R MONTESNILTON [facility] [id number] Univers 13:30:00 13:30:00 NILTON MONTES ity [facility] 2020-07-08 2020-07-08 Orders Doctor 1.2.840.5 [id number] Univers 00:00:00 00:00:00 Only Unassigned, 81703.1.1 ity of [place] 3.104.2.7 [place] .3.656048 Medica l .[address] [place] [address] 2020-07-08 2020-07-08 Letter Simon 1.2.840.3 [id number] Univers 00:00:00 00:00:00 (Out) Nilton A 45666.1.1 i ty of 3.104.2.7 [place] .3.487336 Medica l .8 [place] 2020-05-21 2020-05-21 Outpatient R NICOLE [facility] [id number] Univers 10:15:00 10:15:00 DENA ity [facility] 2020-05-21 2020-05-21 Orders Doctor 1.2.840.1 [id number] Univers 00:00:00 00:00:00 Only Unassigned, 55340.1.1 ity of [place] 3.104.2.7 [place] .3.070380 Medica l .8 [place] 2020-04-24 2020-04-24 Outpatient R FISHASH [facility] [id number] Univers 16:00:00 16:00:00 ity of [facility] 2020-04-22 2020-04-22 Telephone FishAsh 1.2.840.7 [id number] Univers 00:00:00 00:00:00 98778.1.1 ity of 3.104.2.7 [place] .3.008900 Medica l .8 [place] 2020-04-21 2020-04-21 Case FishAsh 1.2.840.8 [id number] Univers 00:00:00 00:00:00 Management 39675.1.1 i ty of 3.104.2.7 [place] .3.087111 Medica l .8 [place] 2020-04-20 2020-04-20 Office FishAsh 1.2.840.8 [id number] Univers 15:09:50 16:30:58 Visit 15791.1.1 ity of 3.104.2.7 [place] .3.926507 Medica l .8 [place] 2020-04-20 2020-04-20 Outpatient R ASH RAMIREZ [facility] [id number] Univers 15:30:00 15:30:00 ity of [facility] 2020-04-20 2020-04-20 Travel 1.2.840.1 1.2.489.501 [id number] Univers 00:00:00 00:00:00 26252.1.1 350.1.13.10 ity of 3.104.2.7 4.[place]7.3.698 [place] .3.486431 084.8 Medica l .8 [place] 2020-04-16 2020-04-16 Emergency [place], K 1.2.840.3 [id number] Univers 11:02:00 13:56:00 Bree 68824.1.1 ity of 3.104.2.7 [place] .3.654537 Medica l .8 [place] 2020-04-16 2020-04-16 Travel 1.2.840.1 1.2.936.382 6195 [id number] Univers 00:00:00 00:00:00 11607.1.1 350.1.13.10 ity of 3.104.2.7 4.[place].7.3.698 [place] .3.831093 084.8 Medica l .8 [place] 2020-04-07 2020-04-07 Outpatient R CHELSY ROMO [facility] [id number] Univers 13:30:00 13:30:00 ity of [facility] 2020-04-07 2020-04-07 Travel 1.2.840.1 1.2.537.033 6217 [id number] Univers 00:00:00 00:00:00 71197.1.1 350.1.13.10 ity of 3.104.2.7 4.[place]7.3.698 [place] .3.170706 084.8 Medica l .8 [place] 2020-01-30 2020-01-30 Outpatient R MAHENDRA, [facility] [id number] Univers 15:45:00 15:45:00 TRUNG ity of [facility] 2020-01-30 2020-01-30 Travel 1.2.840.1 1.2.704.142 [id number] [id number] Univers 00:00:00 00:00:00 02135.1.1 350.1.13.10 ity of 3.104.2.7 4.[place]7.3.698 [place] .3.680269 084.8 Medica l .8 [place] 2020-01-01 2020-01-01 Orders Doctor 1.2.840.7 [id number] Univers 00:00:00 00:00:00 Only Unassigned, 27281.1.1 ity of [place] 3.104.2.7 [place] .3.956762 Medica l .8 [place] 2019-10-22 2019-10-22 Outpatient R CHELSY ROMO [facility] [id number] Univers 15:45:00 15:45:00 ity of [facility] 2019-09-12 2019-09-12 Urgent Unknown, Attending 1.2.840.1 [id number] Univers 17:51:35 19:25:20 Care Matt, Ruchi 78322.1.1 ity of 3.104.2.7 [place] .3.765582 Medica l .8 [place] 2019-09-12 2019-09-12 Outpatient R UNKNOWN, [facility] [id number] Univers 18:00:00 18:00:00 ATTENDING ity of [facility] 2019-07-04 2019-07-04 Orders Doctor 1.2.840.1 [id number] Univers 00:00:00 00:00:00 Only Unassigned, 18192.1.1 ity of [place] 3.104.2.7 [place] .3.463114 Medica l .8 [place] 2019-04-02 2019-04-02 Orders Doctor 1.2.840.6 [id number] Univers 00:00:00 00:00:00 Only Unassigned, 51739.1.1 ity of [place] 3.104.2.7 [place] .3.782550 Medica l .8 [place] 2018-10-31 2018-10-31 Nurse Nilton Montes 1.2.840.1 [id number] [facility] 14:59:26 16:42:50 Visit NurseHan 30158.1.1 ity of 3.104.2.7 [place] .3.482970 Medica l .8 [place] Results Test Description Test Time Test Comments Results Result Comments Source AG STREP GROUP A (THROAT) POC 2022-07-15 20:12:00 Test Item Value Reference Range Interpretation Comme nts AG STREP GROUP A (THROAT) POC (test code = STREPAPOC) negative NEGATIVE POCT [id number] 01:46:00 Test Item Value Reference Range Interpretation Comments POCT PREG (test code = 1605) Negative On board controls acceptable with Present C Line (test code = 3574) POCT PREG LOT # (test code = HCG 20110903) POCT PREG TEST DATE (test 07/02/2023 code = 3576) Lab Interpretation (test code = Normal 29583-3) [id number] 01:46:00 Test Item Value Reference Range Interpretation Comments POCT PREG (test code = 1605) Negative On board controls acceptable with Present C Line (test code = 3574) POCT PREG LOT # (test code = HCG 20110903) POCT PREG TEST DATE (test 07/02/2023 code = 3576) Lab Interpretation (test code = Normal 64567-2) [facility] [id number] 01:46:00 Test Item Value Reference Range Interpretation Comments POCT PREG (test code = 1605) Negative On board controls acceptable with Present C Line (test code = 3574) POCT PREG LOT # (test code = HCG 20110903) POCT PREG TEST DATE (test 07/02/2023 code = 3576) Lab Interpretation (test code = Normal 59899-4) [facility] [id number] 01:46:00 Test Item Value Reference Range Interpretation Comments POCT PREG (test code = 1605) Negative On board controls acceptable with Present C Line (test code = 3574) POCT PREG LOT # (test code = HCG 20110903) POCT PREG TEST DATE (test 07/02/2023 code = 3576) Lab Interpretation (test code = Normal 09808-4) [facility] [id number] 01:46:00 Test Item Value Reference Range Interpretation Comments POCT PREG (test code = 1605) Negative On board controls acceptable with Present C Line (test code = 3574) POCT PREG LOT # (test code = HCG 20110903) POCT PREG TEST DATE (test 07/02/2023 code = 3576) Lab Interpretation (test code = Normal 58542-3) [facility] [id number] 01:46:00 Test Item Value Reference Range Interpretation Comments POCT PREG (test code = 1605) Negative On board controls acceptable with Present C Line (test code = 3574) POCT PREG LOT # (test code = HCG 20110903) POCT PREG TEST DATE (test 07/02/2023 code = 3576) Lab Interpretation (test code = Normal 05996-4) [facility] [id number] 01:46:00 Test Item Value Reference Range Interpretation Comments POCT PREG (test code = 1605) Negative On board controls acceptable with Present C Line (test code = 3574) POCT PREG LOT # (test code = HCG 20110903) POCT PREG TEST DATE (test 07/02/2023 code = 3576) Lab Interpretation (test code = Normal 16568-8) [facility] [id number] 01:46:00 Test Item Value Reference Range Interpretation Comments POCT PREG (test code = 1605) Negative On board controls acceptable with Present C Line (test code = 3574) POCT PREG LOT # (test code = HCG 20110903) POCT PREG TEST DATE (test 07/02/2023 code = 3576) Lab Interpretation (test code = Normal 50326-2) [facility] [id number] 01:46:00 Test Item Value Reference Range Interpretation Comments POCT PREG (test code = 1605) Negative On board controls acceptable with Present C Line (test code = 3574) POCT PREG LOT # (test code = HCG 20110903) POCT PREG TEST DATE (test 07/02/2023 code = 3576) Lab Interpretation (test code = Normal 32499-5) [facility] [id number] 01:46:00 Test Item Value Reference Range Interpretation Comments POCT PREG (test code = 1605) Negative On board controls acceptable with Present C Line (test code = 3574) POCT PREG LOT # (test code = HCG 20110903) POCT PREG TEST DATE (test 07/02/2023 code = 3576) Lab Interpretation (test code = Normal 76637-1) [facility] [id number] 01:46:00 Test Item Value Reference Range Interpretation Comments POCT PREG (test code = 1605) Negative On board controls acceptable with Present C Line (test code = 3574) POCT PREG LOT # (test code = HCG 20110903) POCT PREG TEST DATE (test 07/02/2023 code = 3576) Lab Interpretation (test code = Normal 22351-0) [facility] [id number] 01:46:00 Test Item Value Reference Range Interpretation Comments POCT PREG (test code = 1605) Negative On board controls acceptable with Present C Line (test code = 3574) POCT PREG LOT # (test code = HCG 20110903) POCT PREG TEST DATE (test 07/02/2023 code = 3576) Lab Interpretation (test code = Normal 16284-3) [facility] [id number] 01:46:00 Test Item Value Reference Range Interpretation Comments POCT PREG (test code = 1605) Negative On board controls acceptable with Present C Line (test code = 3574) POCT PREG LOT # (test code = HCG 20110903) POCT PREG TEST DATE (test 07/02/2023 code = 3576) Lab Interpretation (test code = Normal 91539-9) [facility] [id number] 01:46:00 Test Item Value Reference Range Interpretation Comments POCT PREG (test code = 1605) Negative On board controls acceptable with Present C Line (test code = 3574) POCT PREG LOT # (test code = HCG 20110903) POCT PREG TEST DATE (test 07/02/2023 code = 3576) Lab Interpretation (test code = Normal 25455-3) [facility] [id number] 01:46:00 Test Item Value Reference Range Interpretation Comments POCT PREG (test code = 1605) Negative On board controls acceptable with Present C Line (test code = 3574) POCT PREG LOT # (test code = HCG 20110903) POCT PREG TEST DATE (test 07/02/2023 code = 3576) Lab Interpretation (test code = Normal 98855-0) [facility] [id number] 01:46:00 Test Item Value Reference Range Interpretation Comments POCT PREG (test code = 1605) Negative On board controls acceptable with Present C Line (test code = 3574) POCT PREG LOT # (test code = HCG 20110903) POCT PREG TEST DATE (test 07/02/2023 code = 3576) Lab Interpretation (test code = Normal 16091-8) [facility] [id number] 01:46:00 Test Item Value Reference Range Interpretation Comments POCT PREG (test code = 1605) Negative On board controls acceptable with Present C Line (test code = 3574) POCT PREG LOT # (test code = HCG 20110903) POCT PREG TEST DATE (test 07/02/2023 code = 3576) Lab Interpretation (test code = Normal 99908-8) [facility] [id number] 01:46:00 Test Item Value Reference Range Interpretation Comments POCT PREG (test code = 1605) Negative On board controls acceptable with Present C Line (test code = 3574) POCT PREG LOT # (test code = HCG 20110903) POCT PREG TEST DATE (test 07/02/2023 code = 3576) Lab Interpretation (test code = Normal 37773-2) [facility] [id number] 01:46:00 Test Item Value Reference Range Interpretation Comments POCT PREG (test code = 1605) Negative On board controls acceptable with Present C Line (test code = 3574) POCT PREG LOT # (test code = HCG 20110903) POCT PREG TEST DATE (test 07/02/2023 code = 3576) Lab Interpretation (test code = Normal 35966-3) [facility] [id number] 01:46:00 Test Item Value Reference Range Interpretation Comments POCT PREG (test code = 1605) Negative On board controls acceptable with Present C Line (test code = 3574) POCT PREG LOT # (test code = HCG 20110903) POCT PREG TEST DATE (test 07/02/2023 code = 3576) Lab Interpretation (test code = Normal 05167-0) [facility] [id number] 01:46:00 Test Item Value Reference Range Interpretation Comments POCT PREG (test code = 1605) Negative On board controls acceptable with Present C Line (test code = 3574) POCT PREG LOT # (test code = HCG 20110903) POCT PREG TEST DATE (test 07/02/2023 code = 3576) Lab Interpretation (test code = Normal 83440-6) [facility] [id number] 01:46:00 Test Item Value Reference Range Interpretation Comments POCT PREG (test code = 1605) Negative On board controls acceptable with Present C Line (test code = 3574) POCT PREG LOT # (test code = HCG 20110903) POCT PREG TEST DATE (test 07/02/2023 code = 3576) Lab Interpretation (test code = Normal 17682-8) [facility] [id number] 01:46:00 Test Item Value Reference Range Interpretation Comments POCT PREG (test code = 1605) Negative On board controls acceptable with Present C Line (test code = 3574) POCT PREG LOT # (test code = HCG 8898533 3575) POCT PREG TEST DATE (test 07/02/2023 code = 3576) Lab Interpretation (test code = Normal 53902-9) [facility] METABOLIC PANEL (NA, K, CL, CO2, GLUCOSE, BUN, CREATININE, CA)2022-04-05 11:08:28 Test Item Value Reference Range Interpretation Comments NA (test code = 137 mmol/L 135-145 0269131365) K (test code = 3.8 mmol/L 3.5-5 9433052713) CL (test code = 104 mmol/L 98-108 7651780406) CO2 TOTAL (test code 27 mmol/L 23-31 = 8536577975) AGAP (test code = 2-16 6708572347) BUN (test code = 13 mg/dL 7-23 4283885253) GLUCOSE (test code = 106 mg/dL 70-110 5811594732) CREATININE (test code 0.58 mg/dL 0.5-1.04 = 4067848893) CALCIUM (test code = 8.6 mg/dL 8.6-10.6 4237310222) eGFR (test code = mL/min/1.73m2 8721553301) MEDHAT (test code = MEDHAT) Association of [...] or urine or abnormalities in imaging tests). [facility] METABOLIC PANEL (NA, K, CL, CO2, GLUCOSE, BUN, CREATININE, CA)2022-04-05 11:08:28 Test Item Value Reference Range Interpretation Comments NA (test code = 137 mmol/L 135-145 6285731564) K (test code = 3.8 mmol/L 3.5-5 2799882327) CL (test code = 104 mmol/L 98-108 0924710935) CO2 TOTAL (test code 27 mmol/L 23-31 = 3387405003) AGAP (test code = 2-16 6654545376) BUN (test code = 13 mg/dL 7-23 5457426005) GLUCOSE (test code = 106 mg/dL 70-110 5854881986) CREATININE (test code 0.58 mg/dL 0.5-1.04 = 6649117727) CALCIUM (test code = 8.6 mg/dL 8.6-10.6 3406242429) eGFR (test code = mL/min/1.73m2 4940149571) MEDHAT (test code = MEDHAT) Association of [...] urine or abnormalities in imaging tests). [facility] (NA, K, CL, CO2, GLUCOSE, BUN, CREATININE, CA)2022-04-05 11:08:28 Test Item Value Reference Range Interpretation Comments NA (test code = 137 mmol/L 135-145 5262415054) K (test code = 3.8 mmol/L 3.5-5 3950914499) CL (test code = 104 mmol/L 98-108 7824753158) CO2 TOTAL (test code 27 mmol/L 23-31 = 8023573781) AGAP (test code = 2-16 4239027721) BUN (test code = 13 mg/dL 7-23 0392417546) GLUCOSE (test code = 106 mg/dL 70-110 3673114559) CREATININE (test code 0.58 mg/dL 0.5-1.04 = 0190169461) CALCIUM (test code = 8.6 mg/dL 8.6-10.6 7399541525) eGFR (test code = mL/min/1.73m2 0229240068) MEDHAT (test code = MEDHAT) Association of [...] urine or abnormalities in imaging tests). [facility]OLIC [facility] (NA, K, CL, CO2, GLUCOSE, BUN, CREATININE, CA)2022-04-05 11:08:28 Test Item Value Reference Range Interpretation Comments NA (test code = 137 mmol/L 135-145 5090623275) K (test code = 3.8 mmol/L 3.5-5 0973190946) CL (test code = 104 mmol/L 98-108 6098347630) CO2 TOTAL (test code 27 mmol/L 23-31 = 0973125654) AGAP (test code = 2-16 8535956579) BUN (test code = 13 mg/dL 7-23 4089056308) GLUCOSE (test code = 106 mg/dL 70-110 9136284419) CREATININE (test code 0.58 mg/dL 0.5-1.04 = 0434312383) CALCIUM (test code = 8.6 mg/dL 8.6-10.6 5616361749) eGFR (test code = mL/min/1.73m2 3579777997) MEHDAT (test code = MEDHAT) Association of Glomerular [...] or urine or abnormalities in imaging tests). [facility] METABOLIC PANEL (NA, K, CL, CO2, GLUCOSE, BUN, CREATININE, CA)2022-04-05 11:08:28 Test Item Value Reference Range Interpretation Comments NA (test code = 137 mmol/L 135-145 [id number]) K (test code = 3.8 mmol/L 3.5-5 7541247877) CL (test code = 104 mmol/L 98-108 9959133775) CO2 TOTAL (test code 27 mmol/L 23-31 = 4838036758) AGAP (test code = 2-16 0990727553) BUN (test code = 13 mg/dL 7-23 6887500230) GLUCOSE (test code = 106 mg/dL 70-110 2551542835) CREATININE (test code 0.58 mg/dL 0.5-1.04 = 6242550647) CALCIUM (test code = 8.6 mg/dL 8.6-10.6 1928234385) eGFR (test code = mL/min/1.73m2 9121371629) MEDHAT (test code = MEDHAT) Association of [...] urine or abnormalities in imaging tests). [facility] (NA, K, CL, CO2, GLUCOSE, BUN, CREATININE, CA)2022-04-05 11:08:28 Test Item Value Reference Range Interpretation Comments NA (test code = 137 mmol/L 135-145 [id number]) K (test code = 3.8 mmol/L 3.5-5 5905253829) CL (test code = 104 mmol/L 98-108 5738697361) CO2 TOTAL (test code 27 mmol/L 23-31 = 0503930472) AGAP (test code = 2-16 5406631259) BUN (test code = 13 mg/dL 7-23 1435240168) GLUCOSE (test code = 106 mg/dL 70-110 4339772870) CREATININE (test code 0.58 mg/dL 0.5-1.04 = 7025142563) CALCIUM (test code = 8.6 mg/dL 8.6-10.6 2652282650) eGFR (test code = mL/min/1.73m2 8601398992) MEDHAT (test code = MEDHAT) Association of [...] or urine or abnormalities in imaging tests). [facility] METABOLIC PANEL (NA, K, CL, CO2, GLUCOSE, BUN, CREATININE, CA)2022-04-05 11:08:28 Test Item Value Reference Range Interpretation Comments NA (test code = 137 mmol/L 135-145 5571405749) K (test code = 3.8 mmol/L 3.5-5 0514622800) CL (test code = 104 mmol/L 98-108 8415064166) CO2 TOTAL (test code 27 mmol/L 23-31 = 2206648887) AGAP (test code = 2-16 5095123166) BUN (test code = 13 mg/dL 7-23 3005575129) GLUCOSE (test code = 106 mg/dL 70-110 8555321776) CREATININE (test code 0.58 mg/dL 0.5-1.04 = 9983522804) CALCIUM (test code = 8.6 mg/dL 8.6-10.6 6160476848) eGFR (test code = mL/min/1.73m2 2707179682) MEDHAT (test code = MEDHAT) Association of [...] or urine or abnormalities in imaging tests). [facility] METABOLIC PANEL (NA, K, CL, CO2, GLUCOSE, BUN, CREATININE, CA)2022-04-05 11:08:28 Test Item Value Reference Range Interpretation Comments NA (test code = 137 mmol/L 135-145 3132213296) K (test code = 3.8 mmol/L 3.5-5 7017003885) CL (test code = 104 mmol/L 98-108 4006574851) CO2 TOTAL (test code 27 mmol/L 23-31 = 9289757012) AGAP (test code = 2-16 5552755548) BUN (test code = 13 mg/dL 7-23 6899908920) GLUCOSE (test code = 106 mg/dL 70-110 9283512429) CREATININE (test code 0.58 mg/dL 0.5-1.04 = 6642255810) CALCIUM (test code = 8.6 mg/dL 8.6-10.6 5189563843) eGFR (test code = mL/min/1.73m2 8684261131) MEDHAT (test code = MEDHAT) Association of [...] or urine or abnormalities in imaging tests). [facility] METABOLIC PANEL (NA, K, CL, CO2, GLUCOSE, BUN, CREATININE, CA)2022-04-05 11:08:28 Test Item Value Reference Range Interpretation Comments NA (test code = 137 mmol/L 135-145 1338030758) K (test code = 3.8 mmol/L 3.5-5 6316299444) CL (test code = 104 mmol/L 98-108 0549298028) CO2 TOTAL (test code 27 mmol/L 23-31 = 4710240343) AGAP (test code = 2-16 9199631978) BUN (test code = 13 mg/dL 7-23 0224286251) GLUCOSE (test code = 106 mg/dL 70-110 1607209985) CREATININE (test code 0.58 mg/dL 0.5-1.04 = 3321484632) CALCIUM (test code = 8.6 mg/dL 8.6-10.6 7938612688) eGFR (test code = mL/min/1.73m2 0423738831) MEDHAT (test code = MEDHAT) Association of [...] or urine or abnormalities in imaging tests). [facility] METABOLIC PANEL (NA, K, CL, CO2, GLUCOSE, BUN, CREATININE, CA)2022-04-05 11:08:28 Test Item Value Reference Range Interpretation Comments NA (test code = 137 mmol/L 135-145 4181636473) K (test code = 3.8 mmol/L 3.5-5 4716817189) CL (test code = 104 mmol/L 98-108 9715711163) CO2 TOTAL (test code 27 mmol/L 23-31 = 5089264543) AGAP (test code = 2-16 4015856583) BUN (test code = 13 mg/dL 7-23 1308333060) GLUCOSE (test code = 106 mg/dL 70-110 0852016196) CREATININE (test code 0.58 mg/dL 0.5-1.04 = 1175074935) CALCIUM (test code = 8.6 mg/dL 8.6-10.6 2104696953) eGFR (test code = mL/min/1.73m2 3097415412) MEDHAT (test code = MEDHAT) Association of [...] or urine or abnormalities in imaging tests). [facility] METABOLIC PANEL (NA, K, CL, CO2, GLUCOSE, BUN, CREATININE, CA)2022-04-05 11:08:28 Test Item Value Reference Range Interpretation Comments NA (test code = 137 mmol/L 135-145 0155847275) K (test code = 3.8 mmol/L 3.5-5 9171550228) CL (test code = 104 mmol/L 98-108 1655120732) CO2 TOTAL (test code 27 mmol/L 23-31 = 8805132516) AGAP (test code = 2-16 8114921527) BUN (test code = 13 mg/dL 7-23 9975916803) GLUCOSE (test code = 106 mg/dL 70-110 3401571360) CREATININE (test code 0.58 mg/dL 0.5-1.04 = 9030108061) CALCIUM (test code = 8.6 mg/dL 8.6-10.6 3026008110) eGFR (test code = mL/min/1.73m2 1886558494) MEDHAT (test code = MEDHAT) Association of [...] or urine or abnormalities in imaging tests). [facility] METABOLIC PANEL (NA, K, CL, CO2, GLUCOSE, BUN, CREATININE, CA)2022-04-05 11:08:28 Test Item Value Reference Range Interpretation Comments NA (test code = 137 mmol/L 135-145 1644063487) K (test code = 3.8 mmol/L 3.5-5 0349624061) CL (test code = 104 mmol/L 98-108 6672193762) CO2 TOTAL (test code 27 mmol/L 23-31 = 4620404944) AGAP (test code = 2-16 9244595274) BUN (test code = 13 mg/dL 7-23 8714135730) GLUCOSE (test code = 106 mg/dL 70-110 0788003500) CREATININE (test code 0.58 mg/dL 0.5-1.04 = 6161190356) CALCIUM (test code = 8.6 mg/dL 8.6-10.6 6281366462) eGFR (test code = mL/min/1.73m2 2230241114) MEDHAT (test code = MEDHAT) Association of [...] urine or abnormalities in imaging tests). [facility] (NA, K, CL, CO2, GLUCOSE, BUN, CREATININE, CA)2022-04-05 11:08:28 Test Item Value Reference Range Interpretation Comments NA (test code = 137 mmol/L 135-145 5354645192) K (test code = 3.8 mmol/L 3.5-5 6461682566) CL (test code = 104 mmol/L 98-108 0496114699) CO2 TOTAL (test code 27 mmol/L 23-31 = 8323452922) AGAP (test code = 2-16 7566583434) BUN (test code = 13 mg/dL 7-23 5080432052) GLUCOSE (test code = 106 mg/dL 70-110 6169234884) CREATININE (test code 0.58 mg/dL 0.5-1.04 = 4811463242) CALCIUM (test code = 8.6 mg/dL 8.6-10.6 2305997057) eGFR (test code = mL/min/1.73m2 4772703022) MEDHAT (test code = MEDHAT) Association of [...] or urine or abnormalities in imaging tests). [facility] METABOLIC PANEL (NA, K, CL, CO2, GLUCOSE, BUN, CREATININE, CA)2022-04-05 11:08:28 Test Item Value Reference Range Interpretation Comments NA (test code = 137 mmol/L 135-145 2107273714) K (test code = 3.8 mmol/L 3.5-5 0993826567) CL (test code = 104 mmol/L 98-108 6938335412) CO2 TOTAL (test code 27 mmol/L 23-31 = 8846017249) AGAP (test code = 2-16 4523622101) BUN (test code = 13 mg/dL 7-23 4780491138) GLUCOSE (test code = 106 mg/dL 70-110 6564370235) CREATININE (test code 0.58 mg/dL 0.5-1.04 = 5172640441) CALCIUM (test code = 8.6 mg/dL 8.6-10.6 4200895809) eGFR (test code = mL/min/1.73m2 1559352507) MEDHAT (test code = MEDHAT) Association of [...] or urine or abnormalities in imaging tests). [facility] METABOLIC PANEL (NA, K, CL, CO2, GLUCOSE, BUN, CREATININE, CA)2022-04-05 11:08:28 Test Item Value Reference Range Interpretation Comments NA (test code = 137 mmol/L 135-145 4569312554) K (test code = 3.8 mmol/L 3.5-5.0 1064092062) CL (test code = 104 mmol/L 98-108 2573300696) CO2 TOTAL (test code 27 mmol/L 23-31 = 2688636960) AGAP (test code = 2-16 5321396119) BUN (test code = 13 mg/dL 7-23 3540275511) GLUCOSE (test code = 106 mg/dL 70-110 9255126933) CREATININE (test code 0.58 mg/dL 0.50-1.04 = 3994998480) CALCIUM (test code = 8.6 mg/dL 8.6-10.6 8696172493) eGFR (test code = mL/min/1.73m2 7198389532) MEDHAT (test code = MEDHAT) Association of [...] or urine or abnormalities in imaging tests). [facility] METABOLIC PANEL (NA, K, CL, CO2, GLUCOSE, BUN, CREATININE, CA)2022-04-05 11:08:28 Test Item Value Reference Range Interpretation Comments NA (test code = 137 mmol/L 135-145 4489061020) K (test code = 3.8 mmol/L 3.5-5.0 5714228063) CL (test code = 104 mmol/L 98-108 4073349003) CO2 TOTAL (test code 27 mmol/L 23-31 = 7649989854) AGAP (test code = 2-16 7598520939) BUN (test code = 13 mg/dL 7-23 0800477525) GLUCOSE (test code = 106 mg/dL 70-110 1917430211) CREATININE (test code 0.58 mg/dL 0.50-1.04 = 5132321687) CALCIUM (test code = 8.6 mg/dL 8.6-10.6 9186259289) eGFR (test code = mL/min/1.73m2 9972341704) MEDHAT (test code = MEDHAT) Association of [...] or urine or abnormalities in imaging tests). [facility] METABOLIC PANEL (NA, K, CL, CO2, GLUCOSE, BUN, CREATININE, CA)2022-04-05 11:08:28 Test Item Value Reference Range Interpretation Comments NA (test code = 137 mmol/L 135-145 1402164270) K (test code = 3.8 mmol/L 3.5-5.0 1289445052) CL (test code = 104 mmol/L 98-108 5856066292) CO2 TOTAL (test code 27 mmol/L 23-31 = 0283947557) AGAP (test code = 2-16 4659624102) BUN (test code = 13 mg/dL 7-23 0025745597) GLUCOSE (test code = 106 mg/dL 70-110 2459456688) CREATININE (test code 0.58 mg/dL 0.50-1.04 = 7226002678) CALCIUM (test code = 8.6 mg/dL 8.6-10.6 8515879446) eGFR (test code = mL/min/1.73m2 3010836143) MEDHAT (test code = MEDHAT) Association of [...] or urine or abnormalities in imaging tests). [facility] METABOLIC PANEL (NA, K, CL, CO2, GLUCOSE, BUN, CREATININE, CA)2022-04-05 11:08:28 Test Item Value Reference Range Interpretation Comments NA (test code = 137 mmol/L 135-145 3156298762) K (test code = 3.8 mmol/L 3.5-5.0 7802518550) CL (test code = 104 mmol/L 98-108 7158871534) CO2 TOTAL (test code 27 mmol/L 23-31 = 4804660555) AGAP (test code = 2-16 8918223767) BUN (test code = 13 mg/dL 7-23 2405058438) GLUCOSE (test code = 106 mg/dL 70-110 9829407000) CREATININE (test code 0.58 mg/dL 0.50-1.04 = 8051417466) CALCIUM (test code = 8.6 mg/dL 8.6-10.6 2141083545) eGFR (test code = mL/min/1.73m2 8641103744) MEDHAT (test code = MEDHAT) Association of [...] or urine or abnormalities in imaging tests). [facility] METABOLIC PANEL (NA, K, CL, CO2, GLUCOSE, BUN, CREATININE, CA)2022-04-05 11:08:28 Test Item Value Reference Range Interpretation Comments NA (test code = 137 mmol/L 135-145 8714568386) K (test code = 3.8 mmol/L 3.5-5.0 6384538658) CL (test code = 104 mmol/L 98-108 6006749362) CO2 TOTAL (test code 27 mmol/L 23-31 = 8066025834) AGAP (test code = 2-16 1229906550) BUN (test code = 13 mg/dL 7-23 3487288995) GLUCOSE (test code = 106 mg/dL 70-110 2391631313) CREATININE (test code 0.58 mg/dL 0.50-1.04 = 0381620282) CALCIUM (test code = 8.6 mg/dL 8.6-10.6 1496132545) eGFR (test code = mL/min/1.73m2 3041324043) MEDHAT (test code = MEDHAT) Association of [...] or urine or abnormalities in imaging tests). [facility] METABOLIC PANEL (NA, K, CL, CO2, GLUCOSE, BUN, CREATININE, CA)2022-04-05 11:08:28 Test Item Value Reference Range Interpretation Comments NA (test code = 137 mmol/L 135-145 3398786665) K (test code = 3.8 mmol/L 3.5-5.0 5016331798) CL (test code = 104 mmol/L 98-108 6952398377) CO2 TOTAL (test code 27 mmol/L 23-31 = 6639062147) AGAP (test code = 2-16 4061415970) BUN (test code = 13 mg/dL 7-23 1773477258) GLUCOSE (test code = 106 mg/dL 70-110 3287103526) CREATININE (test code 0.58 mg/dL 0.50-1.04 = 0287237864) CALCIUM (test code = 8.6 mg/dL 8.6-10.6 3205207754) eGFR (test code = mL/min/1.73m2 0053174080) MEDHAT (test code = MEDHAT) Association of [...] or urine or abnormalities in imaging tests). [facility] METABOLIC PANEL (NA, K, CL, CO2, GLUCOSE, BUN, CREATININE, CA)2022-04-05 11:08:28 Test Item Value Reference Range Interpretation Comments NA (test code = 137 mmol/L 135-145 7574639907) K (test code = 3.8 mmol/L 3.5-5.0 8383721178) CL (test code = 104 mmol/L 98-108 3038378789) CO2 TOTAL (test code 27 mmol/L 23-31 = 5702951807) AGAP (test code = 2-16 6621555713) BUN (test code = 13 mg/dL 7-23 4418743698) GLUCOSE (test code = 106 mg/dL 70-110 1099321454) CREATININE (test code 0.58 mg/dL 0.50-1.04 = 7515426618) CALCIUM (test code = 8.6 mg/dL 8.6-10.6 7215262543) eGFR (test code = mL/min/1.73m2 7529353070) MEDHAT (test code = MEDHAT) Association of [...] or urine or abnormalities in imaging tests). [facility] METABOLIC PANEL (NA, K, CL, CO2, GLUCOSE, BUN, CREATININE, CA)2022-04-05 11:08:28 Test Item Value Reference Range Interpretation Comments NA (test code = 137 mmol/L 135-145 6827523278) K (test code = 3.8 mmol/L 3.5-5.0 6405318895) CL (test code = 104 mmol/L 98-108 1600828468) CO2 TOTAL (test code 27 mmol/L 23-31 = 9957758743) AGAP (test code = 2-16 2991006957) BUN (test code = 13 mg/dL 7-23 6170635079) GLUCOSE (test code = 106 mg/dL 70-110 6291109042) CREATININE (test code 0.58 mg/dL 0.50-1.04 = 8849388760) CALCIUM (test code = 8.6 mg/dL 8.6-10.6 3961930052) eGFR (test code = mL/min/1.73m2 8247285363) MEDHAT (test code = MEDHAT) Association of [...] urine or abnormalities in imaging tests). [facility] (NA, K, CL, CO2, GLUCOSE, BUN, CREATININE, CA)2022-04-05 11:08:28 Test Item Value Reference Range Interpretation Comments NA (test code = 137 mmol/L 135-145 9583645036) K (test code = 3.8 mmol/L 3.5-5.0 3801649865) CL (test code = 104 mmol/L 98-108 3084968288) CO2 TOTAL (test code 27 mmol/L 23-31 = 3786485047) AGAP (test code = 2-16 0596359901) BUN (test code = 13 mg/dL 7-23 6653096869) GLUCOSE (test code = 106 mg/dL 70-110 4240177105) CREATININE (test code 0.58 mg/dL 0.50-1.04 = 1825780612) CALCIUM (test code = 8.6 mg/dL 8.6-10.6 6329910113) eGFR (test code = mL/min/1.73m2 2490980247) MEDHAT (test code = MEDHAT) Association of [...] or urine or abnormalities in imaging tests). [facility] METABOLIC PANEL (NA, K, CL, CO2, GLUCOSE, BUN, CREATININE, CA)2022-04-05 11:08:28 Test Item Value Reference Range Interpretation Comments NA (test code = 137 mmol/L 135-145 0957116455) K (test code = 3.8 mmol/L 3.5-5 2525388918) CL (test code = 104 mmol/L 98-108 1069404620) CO2 TOTAL (test code 27 mmol/L 23-31 = 7718144960) AGAP (test code = 2-16 6406201673) BUN (test code = 13 mg/dL 7-23 9535254677) GLUCOSE (test code = 106 mg/dL 70-110 5388529201) CREATININE (test code 0.58 mg/dL 0.5-1.04 = 7482086599) CALCIUM (test code = 8.6 mg/dL 8.6-10.6 2040100483) eGFR (test code = mL/min/1.73m2 4045865152) MEDHAT (test code = MEDHAT) Association of [...] or urine or abnormalities in imaging tests). [facility] with Ukwhxuvzhtib9431-08-30 10:50:28 Test Item Value Reference Range Interpretation Comments WBC (test code = See_Comment [Automated 2758-2) message] The sy stem which generated this result transmitted reference range : 4.30 - 11.10 10*3/?L. The reference range was not used to interpret this result as normal/abnormal . RBC (test code = See_Comment [Automated 654-8) message] The sy stem which generated this [...] RDW-SD (test code = 43.6 fL 39-49.9 02968-1) RDW-CV (test code = 13.6 % 12-15.5 788-0) PLT (test code = See_Comment [Automated 687-3) message] The sy stem which generated this result transmitted reference range : 166 - 358 10*3/ ?L. The reference r mann was not used to interpret this result as normal/abnormal . MPV (test code = 9.9 fL 9.5-12.9 26832-9) NRBC/100 WBC (test See_Comment [Automat ed code = 5111518838) message] The system which generated this result transmitted reference range : 0.0 - 10.0 /100 WBCs. The refer ence range was not u sed to interpret th is result as normal/abnormal . NRBC x10^3 (test code See_Comment [Auto mated = 8460882548) message] The s ystem which generated this result transmitted reference range : 10*3/?L. The reference range was not used to interpret this result as normal/abnormal . GRAN MAT (NEUT) % 65.5 % (test code = 770-8) IMM GRAN % (test code 0.30 % = 8381547144) LYMPH % (test code = 25.3 % 736-9) MONO % (test code = 8.4 % 5905-5) EOS % (test code = 0.0 % 713-8) BASO % (test code = 0.5 % 706-2) GRAN MAT x10^3(ANC) 6.56 10*3/uL 1.88-7.09 (test code = 0665864577) IMM GRAN x10^3 (test 0.03 10*3/uL 0-0.06 code = 9180917682) LYMPH x10^3 (test code 2.53 10*3/uL 1.32-3.29 = 731-0) MONO x10^3 (test code 0.84 10*3/uL 0.33-0.92 = 742-7) EOS x10^3 (test code = 0.03-0.39 L 711-2) BASO x10^3 (test code 0.05 10*3/uL 0.01-0.07 = 704-7) Lab Interpretation Abnormal (test code = 20988-5) [facility] with Hlxoxgriadnj4770-86-81 10:50:28 Test Item Value Reference Range Interpretation [...] RDW-SD (test code = 43.6 fL 39-49.9 58177-5) RDW-CV (test code = 13.6 % 12-15.5 788-0) PLT (test code = See_Comment [Automated 777-3) message] The sy stem which generated this result transmitted reference range : 166 - 358 10*3/ ?L. The reference r mann was not used to interpret this result as normal/abnormal . MPV (test code = 9.9 fL 9.5-12.9 52549-3) NRBC/100 WBC (test See_Comment [Automat ed code = 5493706125) message] The system which generated this result transmitted reference range : 0.0 - 10.0 /100 WBCs. The refer ence range was not u sed to interpret th is result as normal/abnormal . NRBC x10^3 (test code See_Comment [Auto mated = 8211122135) message] The s ystem which generated this result transmitted reference range : 10*3/?L. The reference range was not used to interpret this result as normal/abnormal . GRAN MAT (NEUT) % 65.5 % (test code = 770-8) IMM GRAN % (test code 0.30 % = 8230416440) LYMPH % (test code = 25.3 % 736-9) MONO % (test code = 8.4 % 5905-5) EOS % (test code = 0.0 % 713-8) BASO % (test code = 0.5 % 706-2) GRAN MAT x10^3(ANC) 6.56 10*3/uL 1.88-7.09 (test code = 9948511645) IMM GRAN x10^3 (test 0.03 10*3/uL 0-0.06 code = 9615805773) LYMPH x10^3 (test code 2.53 10*3/uL 1.32-3.29 = 731-0) MONO x10^3 (test code 0.84 10*3/uL 0.33-0.92 = 742-7) EOS x10^3 (test code = 0.03-0.39 L 711-2) BASO x10^3 (test code 0.05 10*3/uL 0.01-0.07 = 704-7) Lab Interpretation Abnormal (test code = 09210-8) [facility] [id number] 01:03:38 Test Item Value Reference Interpretation Comments Range TROPONIN I (test 0.001 ng/mL See_Comment [Automated code = 1591143791) message] The system which generated this result [...] biotin. Lab Interpretation Normal (test code = 50711-0) [facility] [id number] 01:03:38 Test Item Value Reference Interpretation Comments Range TROPONIN I (test 0.001 ng/mL See_Comment [Automated code = 8288586368) message] The system which generated this result [...] biotin. Lab Interpretation Normal (test code = 21188-2) [facility] [id number] 01:03:38 Test Item Value Reference Interpretation Comments Range TROPONIN I (test 0.001 ng/mL See_Comment [Automated code = 4458798304) message] The system which generated this result [...] biotin. Lab Interpretation Normal (test code = 94786-4) [facility] [id number] 01:03:38 Test Item Value Reference Interpretation Comments Range TROPONIN I (test 0.001 ng/mL See_Comment [Automated code = 5827425416) message] The system which generated this result [...] biotin. Lab Interpretation Normal (test code = 33334-6) [facility] [id number] 01:03:38 Test Item Value Reference Interpretation Comments Range TROPONIN I (test 0.001 ng/mL See_Comment [Automated code = 4285728728) message] The system which generated this result [...] biotin. Lab Interpretation Normal (test code = 68270-1) [facility] [id number] 01:03:38 Test Item Value Reference Interpretation Comments Range TROPONIN I (test 0.001 ng/mL See_Comment [Automated code = 4592828299) message] The system which generated this result [...] biotin. Lab Interpretation Normal (test code = 77258-6) [facility] [id number] 01:03:38 Test Item Value Reference Interpretation Comments Range TROPONIN I (test 0.001 ng/mL See_Comment [Automated code = 5526945812) message] The system which generated this result [...] biotin. Lab Interpretation Normal (test code = 46661-5) [facility] [id number] 01:03:38 Test Item Value Reference Interpretation Comments Range TROPONIN I (test 0.001 ng/mL See_Comment [Automated code = 5261486797) message] The system which generated this result [...] biotin. Lab Interpretation Normal (test code = 15354-2) [facility] [id number] 01:03:38 Test Item Value Reference Interpretation Comments Range TROPONIN I (test 0.001 ng/mL See_Comment [Automated code = 1060232690) message] The system which generated this result [...] biotin. Lab Interpretation Normal (test code = 98503-3) [facility] [id number] 01:03:38 Test Item Value Reference Interpretation Comments Range TROPONIN I (test 0.001 ng/mL See_Comment [Automated code = 6075069437) message] The system which generated this result [...] biotin. Lab Interpretation Normal (test code = 02091-7) [facility] [id number] 01:03:38 Test Item Value Reference Interpretation Comments Range TROPONIN I (test 0.001 ng/mL See_Comment [Automated code = 6164119755) message] The system which generated this result [...] biotin. Lab Interpretation Normal (test code = 18677-3) [facility] [id number] 01:03:38 Test Item Value Reference Interpretation Comments Range TROPONIN I (test 0.001 ng/mL See_Comment [Automated code = 6906732327) message] The system which generated this result [...] biotin. Lab Interpretation Normal (test code = 08804-5) [facility] [id number] 01:03:38 Test Item Value Reference Interpretation Comments Range TROPONIN I (test 0.001 ng/mL See_Comment [Automated code = 2681569969) message] The system which generated this result [...] biotin. Lab Interpretation Normal (test code = 45275-1) [facility] [id number] 01:03:38 Test Item Value Reference Interpretation Comments Range TROPONIN I (test 0.001 ng/mL See_Comment [Automated code = 0182028773) message] The system which generated this result [...] biotin. Lab Interpretation Normal (test code = 62977-6) [facility] [id number] 01:03:38 Test Item Value Reference Interpretation Comments Range TROPONIN I (test 0.001 ng/mL See_Comment [Automated code = 2772696176) message] The system which generated this result [...] biotin. Lab Interpretation Normal (test code = 16170-8) [facility] [id number] 01:03:38 Test Item Value Reference Interpretation Comments Range TROPONIN I (test 0.001 ng/mL See_Comment [Automated code = 8288063089) message] The system which generated this result [...] biotin. Lab Interpretation Normal (test code = 30974-2) [facility] [id number] 01:03:38 Test Item Value Reference Interpretation Comments Range TROPONIN I (test 0.001 ng/mL See_Comment [Automated code = 4133179742) message] The system which generated this result [...] biotin. Lab Interpretation Normal (test code = 71850-5) [facility] [id number] 01:03:38 Test Item Value Reference Interpretation Comments Range TROPONIN I (test 0.001 ng/mL See_Comment [Automated code = 3892217798) message] The system which generated this result [...] biotin. Lab Interpretation Normal (test code = 00227-0) [facility] [id number] 01:03:38 Test Item Value Reference Interpretation Comments Range TROPONIN I (test 0.001 ng/mL See_Comment [Automated code = 6476696391) message] The system which generated this result [...] biotin. Lab Interpretation Normal (test code = 38228-3) [facility] [id number] 01:03:38 Test Item Value Reference Interpretation Comments Range TROPONIN I (test 0.001 ng/mL See_Comment [Automated code = 9967889787) message] The system which generated this result [...] biotin. Lab Interpretation Normal (test code = 47285-3) [facility] [id number] 01:03:38 Test Item Value Reference Interpretation Comments Range TROPONIN I (test 0.001 ng/mL See_Comment [Automated code = 2764064110) message] The system which generated this result [...] biotin. Lab Interpretation Normal (test code = 08129-8) [facility] [id number] 01:03:38 Test Item Value Reference Interpretation Comments Range TROPONIN I (test 0.001 ng/mL See_Comment [Automated code = 5009703578) message] The system which generated this result [...] biotin. Lab Interpretation Normal (test code = 02299-7) [facility] [id number] 01:03:38 Test Item Value Reference Interpretation Comments Range TROPONIN I (test 0.001 ng/mL See_Comment [Automated code = [id number]) message] The system which generated this result [...] biotin. Lab Interpretation Normal (test code = 01437-4) [facility] [id number] 01:03:38 Test Item Value Reference Interpretation Comments Range TROPONIN I (test 0.001 ng/mL See_Comment [Automated code = [id number]) message] The system which generated this result [...] biotin. Lab Interpretation Normal (test code = 14720-2) [facility] - [facility]CE [id number] 21:06:03 Test Item Value Reference Range Interpretation Comments ABO & RH (test code A Positive Performe d at [facility] = 20) Laboratory [facility] [address] [place], [place] [id number] Free: [phone] A No. [id number] IAT (test code = Negative Performed a t [place] 118[facility]) Laboratory [facility] Blood Bank[address] [place], [place] [address]Toll Free: [phone] A No. [id number] [facility] - [facility] [id number] 21:06:03 Test Item Value Reference Range Interpretation Comments ABO & RH (test code A Positive Performe d at [facility] = 20) Laboratory [facility] Blood [address] [place], [place] [address]Toll Free: [phone] A No. [id number] IAT (test code = Negative Performed a t [facility] 1185) Laboratory [facility] Blood [place] [address]Toll Free: [phone] A No. [id number] [facility] - ONCE [id number] 21:06:03 Test Item Value Reference Range Interpretation Comments ABO & RH (test code A Positive Performe d at [facility] = 20) Laboratory [facility] Blood [place] [address]Toll Free: [phone] A No. [id number] IAT (test code = Negative Performed a t [facility] 1185) Laboratory [facility] Blood [place] [address]Toll Free: [phone] A No. [id number] [facility]Type [facility] Screen - ONCE [id number] 21:06:03 Test Item Value Reference Range Interpretation Comments ABO & RH (test code A Positive Performe d at [facility] = 20) Laboratory [facility] Blood [place] [address]Toll Free: [phone] A No. [id number] IAT (test code = Negative Performed a t [facility] 1185) Laboratory [facility] Blood [place] [id number] Free: [phone] A No. [id number] [facility]Type [facility] Screen - ONCE [id number] 21:06:03 Test Item Value Reference Range Interpretation Comments ABO & RH (test code A Positive Performe d at [facility] = 20) Laboratory [facility] Blood [address] [address]Dbjx Free: [phone] A No. [id number] IAT (test code = Negative Performed a t [facility] 1185) Laboratory [facility] Blood [address] [place], [place] [address]Toll Free: [phone] A No. [id number] [facility]Type [facility] Screen - ONCE [id number] 21:06:03 Test Item Value Reference Range Interpretation Comments ABO & RH (test code A Positive Performe d at [facility] = 20) Laboratory [facility] Blood [place] [address]Toll Free: [phone] A No. [id number] IAT (test code = Negative Performed a t [facility] 1185) Laboratory [facility] Blood [place] [address]Toll Free: [phone] A No. [id number] [facility] and Screen - ONCE [id number] 21:06:03 Test Item Value Reference Range Interpretation Comments ABO & RH (test code A Positive Performe d at [facility] = 20) Laboratory [facility] Blood [place] [address]Toll Free: [phone] A No. [id number] IAT (test code = Negative Performed a t [facility] 1185) Laboratory [facility] Blood [place] [address]Toll Free: [phone] A No. [id number] [facility] and Screen - ONCE [id number] 21:06:03 Test Item Value Reference Range Interpretation Comments ABO & RH (test code A Positive Performe d at [facility] = 20) Laboratory [facility] Blood [address] [place] [address]Pjpf Free: [phone] A No. [id number] IAT (test code = Negative Performed a t [facility] 1185) Laboratory [facility] Blood [address] [place] [address]Csnu Free: [phone] A No. [id number] [facility] and Screen - ONCE [id number] 21:06:03 Test Item Value Reference Range Interpretation Comments ABO & RH (test code A Positive Performe d at [facility] = 20) Laboratory [facility] Blood [address] [place], [place] [address]Toll Free: [phone] A No. [id number] IAT (test code = Negative Performed a t [facility] 1185) Laboratory [facility] Blood [place] [address]Toll Free: [phone] A No. [id number] [facility]Type [facility] - ONCE [id number] 21:06:03 Test Item Value Reference Range Interpretation Comments ABO & RH (test code A Positive Performe d at [facility] = 20) Laboratory [facility] Blood [place] [address]Toll Free: [phone] A No. [id number] IAT (test code = Negative Performed a t [facility] 1185) Laboratory [facility] [address] [place], [place] [address]Toll Free: [phone] A No. [id number] [facility] and Screen - ONCE [id number] 21:06:03 Test Item Value Reference Range Interpretation Comments ABO & RH (test code A Positive Performe d at [facility] = 20) Laboratory [facility] Blood [address] [place] [address]Kraj Free: [phone] A No. [id number] IAT (test code = Negative Performed a t [facility] 1185) Laboratory [facility] Blood [address] [place] [address]Kkzw Free: [phone] A No. [id number] [facility] and Screen - ONCE [id number] 21:06:03 Test Item Value Reference Range Interpretation Comments ABO & RH (test code A Positive Performe d at [facility] = 20) Laboratory [facility] [address] [place], [place] [address]Toll Free: [phone] A No. [id number] IAT (test code = Negative Performed a t [facility] 1185) Laboratory [facility] Blood [place] [address]Toll Free: [phone] A No. [id number] [facility] and Screen - ONCE [id number] 21:06:03 Test Item Value Reference Range Interpretation Comments ABO & RH (test code A Positive Performe d at [facility] = 20) Laboratory [facility] Blood [place] [address]Toll Free: [phone] A No. [id number] IAT (test code = Negative Performed a t [facility] 1185) Laboratory [facility] Blood [address] [address]Oyvv Free: [phone] A No. [id number] [facility] and Screen - ONCE [id number] 21:06:03 Test Item Value Reference Range Interpretation Comments ABO & RH (test code A Positive Performe d at [facility] = 20) Laboratory [facility] Blood [place] [address]Toll Free: [phone] A No. [id number] IAT (test code = Negative Performed a t [facility] 1185) Laboratory [facility] Blood [address] [address]Kcoe Free: [phone] A No. [id number] [facility] and Screen - ONCE [id number] 21:06:03 Test Item Value Reference Range Interpretation Comments ABO & RH (test code A Positive Performe d at [facility] = 20) Laboratory [facility] Blood [address] [address]Obqo Free: [phone] A No. [id number] IAT (test code = Negative Performed a t [facility] 1185) Laboratory [facility] Blood [place] [id number] Free: [phone] A No. [id number] [facility]Type [facility] - ONCE [id number] 21:06:03 Test Item Value Reference Range Interpretation Comments ABO & RH (test code A Positive Performe d at [facility] = 20) Laboratory [facility] Blood [address] [place], [place] [address]Toll Free: [phone] A No. [id number] IAT (test code = Negative Performed a t [facility] 1185) Laboratory [facility] Blood [place] [address]Toll Free: [phone] A No. [id number] [facility] and Screen - ONCE [id number] 21:06:03 Test Item Value Reference Range Interpretation Comments ABO & RH (test code A Positive Performe d at [facility] = 20) Laboratory [facility] Blood [place] [address]Toll Free: [phone] A No. [id number] IAT (test code = Negative Performed a t [facility] 1185) Laboratory [facility] Blood [place] [address]Toll Free: [phone] A No. [id number] [facility] and Screen - ONCE [id number] 21:06:03 Test Item Value Reference Range Interpretation Comments ABO & RH (test code A Positive Performe d at [facility] = 20) Laboratory [facility] Blood [address] [place], [place] [address]Toll Free: [phone] A No. [id number] IAT (test code = Negative Performed a t [facility] 1185) Laboratory [facility] Blood [address] [address]Pofc Free: [phone] A No. [id number] [facility] and Screen - ONCE [id number] 21:06:03 Test Item Value Reference Range Interpretation Comments ABO & RH (test code A Positive Performe d at [facility] = 20) Laboratory [facility] Blood [address] [place], [place] [address]Toll Free: [phone] A No. [id number] IAT (test code = Negative Performed a t [facility] 1185) Laboratory [facility] Blood [address]Toll Free: [phone] A No. [id number] [facility] - [facility] [id number] 21:06:03 Test Item Value Reference Range Interpretation Comments ABO & RH (test code A Positive Performe d at [facility] = 20) Laboratory [facility] Blood [place] [address]Toll Free: [phone] A No. [id number] IAT (test code = Negative Performed a t [facility] 1185) Laboratory [facility] Blood [place] [address]Toll Free: [phone] A No. [id number] [facility] - ON[facility] [id number] 21:06:03 Test Item Value Reference Range Interpretation Comments ABO & RH (test code A Positive Performe d at [facility] = 20) Laboratory [facility] Blood [place] [address]Toll Free: [phone] A No. [id number] IAT (test code = Negative Performed a t [facility] 1185) Laboratory [facility] [address] [place], [place] [address]Toll Free: [phone] A No. [id number] [facility]Type [facility] - ONCE [id number] 21:06:03 Test Item Value Reference Range Interpretation Comments ABO & RH (test code A Positive Performe d at [facility] = 20) Laboratory [facility] [address] [place], [place] [address]Toll Free: [phone] A No. [id number] IAT (test code = Negative Performed a t [facility] 1185) Laboratory [facility] Blood [place] [address]Toll Free: [phone] A No. [id number] [facility] - [facility] [id number] 21:06:03 Test Item Value Reference Range Interpretation Comments ABO & RH (test code A Positive Performe d at [facility] = 20) Laboratory [facility] Blood [place] [address]Toll Free: [phone] A No. [id number] IAT (test code = Negative Performed a t [facility] 1185) Laboratory [facility] Blood [place] [address]Toll Free: [phone] A No. [id number] [facility] and Screen - ONCE [id number] 21:06:03 Test Item Value Reference Range Interpretation Comments ABO & RH (test code A Positive Performe d at [facility] = 20) Laboratory [facility] Blood [place] [address]Toll Free: [phone] A No. [id number] IAT (test code = Negative Performed a t [facility] 1185) Laboratory [facility] Blood [place] [address]Toll Free: [phone] A No. [id number] [facility] Only)2022-04-04 20:58:06 Test Item Value Reference Range Interpretation Comments ABO & RH (test code A Positive Performe d at [facility] = 20) Laboratory [facility] Blood [place] [address]Toll Free: [phone] A No. [id number] [facility] Confirm[facility] (Lab Only)2022-04-04 20:58:06 Test Item Value Reference Range Interpretation Comments ABO & RH (test code A Positive Performe d at [facility] = 20) Laboratory [facility] [address] [place], [place] [address]Toll Free: [phone] A No. [id number] [facility] Confirmation (Lab Only)2022-04-04 20:58:06 Test Item Value Reference Range Interpretation Comments ABO & RH (test code A Positive Performe d at [facility] = 20) Laboratory [facility] [address] [place], [place] [address]Toll Free: [phone] A No. [id number] [facility] Confirmation (Lab Only)2022-04-04 20:58:06 Test Item Value Reference Range Interpretation Comments ABO & RH (test code A Positive Performe d at [facility] = 20) Laboratory [facility] [address] [place], [place] [address]Toll Free: [phone] A No. [id number] [facility] Confirmation (Lab Only)2022-04-04 20:58:06 Test Item Value Reference Range Interpretation Comments ABO & RH (test code A Positive Performe d at [facility] = 20) Laboratory [facility] [address] [place], [place] [address]Toll Free: [phone] A No. [id number] [facility] Confirmation (Lab Only)2022-04-04 20:58:06 Test Item Value Reference Range Interpretation Comments ABO & RH (test code A Positive Performe d at [facility] = 20) Laboratory [facility] [address] [place], [place] [address]Toll Free: [phone] A No. [id number] [facility] Confirmation (Lab Only)2022-04-04 20:58:06 Test Item Value Reference Range Interpretation Comments ABO & RH (test code A Positive Performe d at [facility] = 20) Laboratory [facility] [address] [place], [place] [address]Toll Free: [phone] A No. [id number] [facility] Confirmation (Lab Only)2022-04-04 20:58:06 Test Item Value Reference Range Interpretation Comments ABO & RH (test code A Positive Performe d at [facility] = 20) Laboratory [facility] [address] [place], [place] [address]Toll Free: [phone] A No. [id number] [facility] Confirmation (Lab Only)2022-04-04 20:58:06 Test Item Value Reference Range Interpretation Comments ABO & RH (test code A Positive Performe d at [facility] = 20) Laboratory [facility] Blood [place] [address]Toll Free: [phone] A No. [id number] [facility] Confirmation (Lab Only)2022-04-04 20:58:06 Test Item Value Reference Range Interpretation Comments ABO & RH (test code A Positive Performe d at [facility] = 20) Laboratory [facility] Blood [place] [address]Toll Free: [phone] A No. [id number] [facility] Confirmation (Lab Only)2022-04-04 20:58:06 Test Item Value Reference Range Interpretation Comments ABO & RH (test code A Positive Performe d at [facility] = 20) Laboratory [facility] Blood [place] [address]Toll Free: [phone] A No. [id number] [facility] Confirmation (Lab Only)2022-04-04 20:58:06 Test Item Value Reference Range Interpretation Comments ABO & RH (test code A Positive Performe d at [facility] = 20) Laboratory [facility] [address] [place], [place] [address]Toll Free: [phone] A No. [id number] [facility] Confirmation (Lab Only)2022-04-04 20:58:06 Test Item Value Reference Range Interpretation Comments ABO & RH (test code A Positive Performe d at [facility] = 20) Laboratory [facility] [address] [place], [place] [address]Toll Free: [phone] A No. [id number] [facility] Confirmation (Lab Only)2022-04-04 20:58:06 Test Item Value Reference Range Interpretation Comments ABO & RH (test code A Positive Performe d at [facility] = 20) Laboratory [facility] [address] [place], [place] [address]Toll Free: [phone] A No. [id number] [facility] Confirmation (Lab Only)2022-04-04 20:58:06 Test Item Value Reference Range Interpretation Comments ABO & RH (test code A Positive Performe d at [facility] = 20) Laboratory [facility] [address] [place], [place] [address]Toll Free: [phone] A No. [id number] [facility] Confirmation (Lab Only)2022-04-04 20:58:06 Test Item Value Reference Range Interpretation Comments ABO & RH (test code A Positive Performe d at [facility] = 20) Laboratory [facility] [address] [place], [place] [address]Toll Free: [phone] A No. [id number] [facility] Confirmation (Lab Only)2022-04-04 20:58:06 Test Item Value Reference Range Interpretation Comments ABO & RH (test code A Positive Performe d at [facility] = 20) Laboratory [facility] [address] [place], [place] [address]Toll Free: [phone] A No. [id number] [facility] Confirmation (Lab Only)2022-04-04 20:58:06 Test Item Value Reference Range Interpretation Comments ABO & RH (test code A Positive Performe d at [facility] = 20) Laboratory [facility] [address] [place], [place] [address]Toll Free: [phone] A No. [id number] [facility] Confirmation (Lab Only)2022-04-04 20:58:06 Test Item Value Reference Range Interpretation Comments ABO & RH (test code A Positive Performe d at [facility] = 20) Laboratory [facility] [address] [place], [place] [address]Toll Free: [phone] A No. [id number] [facility] Confirmation (Lab Only)2022-04-04 20:58:06 Test Item Value Reference Range Interpretation Comments ABO & RH (test code A Positive Performe d at [facility] = 20) Laboratory [facility] [address] [place], [place] [address]Toll Free: [phone] A No. [id number] [facility] Confirmation (Lab Only)2022-04-04 20:58:06 Test Item Value Reference Range Interpretation Comments ABO & RH (test code A Positive Performe d at [facility] = 20) Laboratory [facility] Blood [place] [address]Toll Free: [phone] A No. [id number] [facility] Confirmation (Lab Only)2022-04-04 20:58:06 Test Item Value Reference Range Interpretation Comments ABO & RH (test code A Positive Performe d at [facility] = 20) Laboratory [facility] Blood [place] [address]Toll Free: [phone] A No. [id number] [facility] Confirmation (Lab Only)2022-04-04 20:58:06 Test Item Value Reference Range Interpretation Comments ABO & RH (test code A Positive Performe d at [facility] = 20) Laboratory [facility] [address] [place], [place] [address]Toll Free: [phone] A No. [id number] [facility] Confirmation (Lab Only)2022-04-04 20:58:06 Test Item Value Reference Range Interpretation Comments ABO & RH (test code A Positive Performe d at [facility] = 20) Laboratory [facility] Blood [address] [place] [address]Apyy Free: [phone] A No. [id number] [facility], [id number] 19:40:46 Test Item Value Reference Range Interpretation Comments PREG SERUM (test code Negative = [id number]) MEDHAT (test code = MEDHAT) Less than 10 IU/L. ?If low titer or ectopic is suspected, resubmit specimen in 48-72 hours. [facility], [id number] 19:40:46 Test Item Value Reference Range Interpretation Comments PREG SERUM (test code Negative = [id number]) MEDHAT (test code = MEDHAT) Less than 10 IU/L. ?If low titer or ectopic is suspected, resubmit specimen in 48-72 hours. [facility], [id number] 19:40:46 Test Item Value Reference Range Interpretation Comments PREG SERUM (test code Negative = 0364133866) MEDHAT (test code = MEDHAT) Less than 10 IU/L. ?If low titer or ectopic is suspected, resubmit specimen in 48-72 hours. [facility], [id number] 19:40:46 Test Item Value Reference Range Interpretation Comments PREG SERUM (test code Negative = 1565254411) MEDHAT (test code = MEDHAT) Less than 10 IU/L. ?If low titer or ectopic is suspected, resubmit specimen in 48-72 hours. [facility], [id number] 19:40:46 Test Item Value Reference Range Interpretation Comments PREG SERUM (test code Negative = 1075118159) MEDHAT (test code = MEDHAT) Less than 10 IU/L. ?If low titer or ectopic is suspected, resubmit specimen in 48-72 hours. [facility], [id number] 19:40:46 Test Item Value Reference Range Interpretation Comments PREG SERUM (test code Negative = 3143713506) MEDHAT (test code = MEDHAT) Less than 10 IU/L. ?If low titer or ectopic is suspected, resubmit specimen in 48-72 hours. [facility], [id number] 19:40:46 Test Item Value Reference Range Interpretation Comments PREG SERUM (test code Negative = 4260643605) MEDHAT (test code = MEDHAT) Less than 10 IU/L. ?If low titer or ectopic is suspected, resubmit specimen in 48-72 hours. [facility], [id number] 19:40:46 Test Item Value Reference Range Interpretation Comments PREG SERUM (test code Negative = 1281155470) MEDHAT (test code = MEDHAT) Less than 10 IU/L. ?If low titer or ectopic is suspected, resubmit specimen in 48-72 hours. [facility], [id number] 19:40:46 Test Item Value Reference Range Interpretation Comments PREG SERUM (test code Negative = 7778674900) MEDHAT (test code = MEDHAT) Less than 10 IU/L. ?If low titer or ectopic is suspected, resubmit specimen in 48-72 hours. [facility], [id number] 19:40:46 Test Item Value Reference Range Interpretation Comments PREG SERUM (test code Negative = 6266180246) MEDHAT (test code = MEDHAT) Less than 10 IU/L. ?If low titer or ectopic is suspected, resubmit specimen in 48-72 hours. [facility], [id number] 19:40:46 Test Item Value Reference Range Interpretation Comments PREG SERUM (test code Negative = [id number]) MEDHAT (test code = MEDHAT) Less than 10 IU/L. ?If low titer or ectopic is suspected, resubmit specimen in 48-72 hours. [facility], [id number] 19:40:46 Test Item Value Reference Range Interpretation Comments PREG SERUM (test code Negative = 9128433057) MEDHAT (test code = MEDHAT) Less than 10 IU/L. ?If low titer or ectopic is suspected, resubmit specimen in 48-72 hours. [facility], [id number] 19:40:46 Test Item Value Reference Range Interpretation Comments PREG SERUM (test code Negative = 7872333606) MEDHAT (test code = MEDHAT) Less than 10 IU/L. ?If low titer or ectopic is suspected, resubmit specimen in 48-72 hours. [facility], [id number] 19:40:46 Test Item Value Reference Range Interpretation Comments PREG SERUM (test code Negative = 3341561354) MEDHAT (test code = MEDHAT) Less than 10 IU/L. ?If low titer or ectopic is suspected, resubmit specimen in 48-72 hours. [facility] [id number] 19:40:46 Test Item Value Reference Range Interpretation Comments PREG SERUM (test code Negative = 0238689437) MEDHAT (test code = MEDHAT) Less than 10 IU/L. ?If low titer or ectopic is suspected, resubmit specimen in 48-72 hours. [facility], [id number] 19:40:46 Test Item Value Reference Range Interpretation Comments PREG SERUM (test code Negative = 9859035625) MEDHAT (test code = MEDHAT) Less than 10 IU/L. ?If low titer or ectopic is suspected, resubmit specimen in 48-72 hours. [facility] [id number] 19:40:46 Test Item Value Reference Range Interpretation Comments PREG SERUM (test code Negative = 3726484558) MEDHAT (test code = MEDHAT) Less than 10 IU/L. ?If low titer or ectopic is suspected, resubmit specimen in 48-72 hours. [facility], [id number] 19:40:46 Test Item Value Reference Range Interpretation Comments PREG SERUM (test code Negative = 3957349603) MEDHAT (test code = MEDHAT) Less than 10 IU/L. ?If low titer or ectopic is suspected, resubmit specimen in 48-72 hours. [facility], [id number] 19:40:46 Test Item Value Reference Range Interpretation Comments PREG SERUM (test code Negative = 1277033942) MEDHAT (test code = MEDHAT) Less than 10 IU/L. ?If low titer or ectopic is suspected, resubmit specimen in 48-72 hours. [facility], [id number] 19:40:46 Test Item Value Reference Range Interpretation Comments PREG SERUM (test code Negative = 3310726784) MEDHAT (test code = MEDHAT) Less than 10 IU/L. ?If low titer or ectopic is suspected, resubmit specimen in 48-72 hours. [facility] [id number] 19:40:46 Test Item Value Reference Range Interpretation Comments PREG SERUM (test code Negative = 2845944830) MEDHAT (test code = MEDHAT) Less than 10 IU/L. ?If low titer or ectopic is suspected, resubmit specimen in 48-72 hours. [facility], [id number] 19:40:46 Test Item Value Reference Range Interpretation Comments PREG SERUM (test code Negative = 1491516749) MEDHAT (test code = MEDHAT) Less than 10 IU/L. ?If low titer or ectopic is suspected, resubmit specimen in 48-72 hours. [facility] [id number] 19:40:46 Test Item Value Reference Range Interpretation Comments PREG SERUM (test code Negative = 0489500834) MEDHAT (test code = MEDHAT) Less than 10 IU/L. ?If low titer or ectopic is suspected, resubmit specimen in 48-72 hours. [facility], [id number] 19:40:46 Test Item Value Reference Range Interpretation Comments PREG SERUM (test code Negative = 2912142963) MEDHAT (test code = MEDHAT) Less than 10 IU/L. ?If low titer or ectopic is suspected, resubmit specimen in 48-72 hours. [facility] [id number] 18:55:21 Test Item Value Reference Range Interpretation Comments WBC (test code = See_Comment H [Automated 7158-2) message] The system which generated this result transmit gómez reference range : 4.30 - 11.10 10*3/?L. The reference range was not used to interpret this result as normal/abnormal . RBC (test code = See_Comment [Automated 918-8) message] The system which generated this result [...] RDW-SD (test code = 43.0 fL 39-49.9 85148-1) RDW-CV (test code = 13.2 % 12-15.5 788-0) PLT (test code = See_Comment [Automated 777-3) message] The system which generated this result transmit gómez reference range : 166 - 358 10*3/ ?L. The reference range was not u sed to interpret th is result as normal/abnormal . MPV (test code = 10.8 fL 9.5-12.9 63499-6) NRBC/100 WBC (test See_Comment [Automat ed code = 7158014761) message] The system which generated this result transmit gómez reference range : 0.0 - 10.0 /100 WBCs. The reference range was not used to interpret this result as normal/abnormal . NRBC x10^3 (test code See_Comment [Auto mated = 2482731747) message] The system which generated this result transmit gómez reference range : 10*3/?L. The reference range was not used to interpret this result as normal/abnormal . GRAN MAT (NEUT) % 82.1 % (test code = 770-8) IMM GRAN % (test code 0.60 % = 0660450774) LYMPH % (test code = 12.4 % 736-9) MONO % (test code = 4.3 % 5905-5) EOS % (test code = 0.1 % 713-8) BASO % (test code = 0.5 % 706-2) GRAN MAT x10^3(ANC) 10.62 10*3/uL 1.88-7.09 H (test code = 0791908039) IMM GRAN x10^3 (test 0.08 10*3/uL 0-0.06 H code = 0985759705) LYMPH x10^3 (test code 1.60 10*3/uL 1.32-3.29 = 731-0) MONO x10^3 (test code 0.56 10*3/uL 0.33-0.92 = 742-7) EOS x10^3 (test code = 0.03-0.39 L 711-2) BASO x10^3 (test code 0.06 10*3/uL 0.01-0.07 = 704-7) Lab Interpretation Abnormal (test code = 23842-7) [facility]. METABOLIC PANEL ([id number])2022-04-04 18:55:21 Test Item Value Reference Range Interpretation Comments NA (test code = 141 mmol/L 135-145 9893129913) K (test code = 4.5 mmol/L 3.5-5 8145723425) CL (test code = 103 mmol/L 98-108 6081756578) CO2 TOTAL (test code = 27 mmol/L 23-31 7914578703) AGAP (test code = 2-16 5932002427) BUN (test code = 14 mg/dL 7-23 9186165649) GLUCOSE (test code = 115 mg/dL 70-110 H 0890546252) CREATININE (test code = 0.62 mg/dL 0.5-1.04 1419410253) TOTAL BILI (test code = 0.7 mg/dL 0.1-1.8 6779613975) CALCIUM (test code = 9.5 mg/dL 8.6-10.6 3887312984) T PROTEIN (test code = 7.3 g/dL 6.3-8.2 9179113385) ALBUMIN (test code = 4.7 g/dL 3.5-5 3347561228) ALK PHOS (test code = 65 U/L 34-122 0301148451) ALTv (test code = 22 U/L 5-35 1742-6) AST(SGOT) (test code = 39 U/L 13-40 7215996553) eGFR (test code = mL/min/1.73m2 1105151787) MEDHAT (test code = MEDHAT) Association of [...] tests). Lab Interpretation Abnormal (test code = 08812-3) [facility] 18:55:21 Test Item Value Reference Range Interpretation Comments LIPASE (test code = 4617200681) 70 U/L 0-220 Lab Interpretation (test code = Normal 28360-1) [facility] 18:55:21 Test Item Value Reference Range Interpretation Comments LIPASE (test code = 7216385692) 70 U/L 0-220 Lab Interpretation (test code = Normal 23210-8) [facility] MET[facility]OLIC PANEL ([id number])2022-04-04 18:55:21 Test Item Value Reference Range Interpretation Comments NA (test code = 141 mmol/L 135-145 8146339251) K (test code = 4.5 mmol/L 3.5-5 1725757726) CL (test code = 103 mmol/L 98-108 2153927662) CO2 TOTAL (test code = 27 mmol/L 23-31 9792154507) AGAP (test code = 2-16 4531015910) BUN (test code = 14 mg/dL 7-23 8424336750) GLUCOSE (test code = 115 mg/dL 70-110 H 4649166491) CREATININE (test code = 0.62 mg/dL 0.5-1.04 0142444752) TOTAL BILI (test code = 0.7 mg/dL 0.1-1.9 6737475146) CALCIUM (test code = 9.5 mg/dL 8.6-10.6 2985445124) T PROTEIN (test code = 7.3 g/dL 6.3-8.2 2000521457) ALBUMIN (test code = 4.7 g/dL 3.5-5 4506743625) ALK PHOS (test code = 65 U/L 34-122 8029617347) ALTv (test code = 22 U/L 5-35 1742-6) AST(SGOT) (test code = 39 U/L 13-40 4046859177) eGFR (test code = mL/min/1.73m2 4112137224) MEDHAT (test code = MEDHAT) Association of [...] tests). Lab Interpretation Abnormal (test code = 29169-6) [address] 18:55:21 Test Item Value Reference Range Interpretation Comments LIPASE (test code = 4252522587) 70 U/L 0-220 Lab Interpretation (test code = Normal 94611-4) [address] 18:55:21 Test Item Value Reference Range Interpretation Comments LIPASE (test code = 6959427251) 70 U/L 0-220 Lab Interpretation (test code = Normal 36613-5) [address]10-03 18:55:21 Test Item Value Reference Range Interpretation Comments LIPASE (test code = 5074844955) 70 U/L 0-220 Lab Interpretation (test code = Normal 02437-3) [address] 18:55:21 Test Item Value Reference Range Interpretation Comments LIPASE (test code = 6860247164) 70 U/L 0-220 Lab Interpretation (test code = Normal 58689-9) [address]10-03 18:55:21 Test Item Value Reference Range Interpretation Comments LIPASE (test code = 6861770840) 70 U/L 0-220 Lab Interpretation (test code = Normal 58775-6) [address]10-03 18:55:21 Test Item Value Reference Range Interpretation Comments LIPASE (test code = 5371512133) 70 U/L 0-220 Lab Interpretation (test code = Normal 49966-6) [address] 18:55:21 Test Item Value Reference Range Interpretation Comments LIPASE (test code = 4518935551) 70 U/L 0-220 Lab Interpretation (test code = Normal 73144-8) [address] 18:55:21 Test Item Value Reference Range Interpretation Comments LIPASE (test code = 7956187767) 70 U/L 0-220 Lab Interpretation (test code = Normal 36338-8) [address] 18:55:21 Test Item Value Reference Range Interpretation Comments LIPASE (test code = 7563423522) 70 U/L 0-220 Lab Interpretation (test code = Normal 16305-8) [facility]2022-10-03 18:55:21 Test Item Value Reference Range Interpretation Comments LIPASE (test code = 7385081097) 70 U/L 0-220 Lab Interpretation (test code = Normal 26582-3) [address]-03 18:55:21 Test Item Value Reference Range Interpretation Comments LIPASE (test code = 5636734815) 70 U/L 0-220 Lab Interpretation (test code = Normal 87942-8) [address]-03 18:55:21 Test Item Value Reference Range Interpretation Comments LIPASE (test code = 4395319736) 70 U/L 0-220 Lab Interpretation (test code = Normal 72609-6) [address]-03 18:55:21 Test Item Value Reference Range Interpretation Comments LIPASE (test code = 0158909660) 70 U/L 0-220 Lab Interpretation (test code = Normal 67411-5) [address]-03 18:55:21 Test Item Value Reference Range Interpretation Comments LIPASE (test code = 8517699507) 70 U/L 0-220 Lab Interpretation (test code = Normal 94937-9) [place] 8[address]22-10-03 18:55:21 Test Item Value Reference Range Interpretation Comments LIPASE (test code = 0734153668) 70 U/L 0-220 Lab Interpretation (test code = Normal 95816-1) [place] 833922-10-03 18:55:21 Test Item Value Reference Range Interpretation Comments LIPASE (test code = 1961071672) 70 U/L 0-220 Lab Interpretation (test code = Normal 06906-7) [address]03 18:55:21 Test Item Value Reference Range Interpretation Comments LIPASE (test code = 0236683704) 70 U/L 0-220 Lab Interpretation (test code = Normal 39556-5) [address]-03 18:55:21 Test Item Value Reference Range Interpretation Comments LIPASE (test code = 2336836266) 70 U/L 0-220 Lab Interpretation (test code = Normal 17064-7) [place] 833922-10-03 18:55:21 Test Item Value Reference Range Interpretation Comments LIPASE (test code = 7318619826) 70 U/L 0-220 Lab Interpretation (test code = Normal 19375-0) [facility] 18:55:21 Test Item Value Reference Range Interpretation Comments LIPASE (test code = 3597816329) 70 U/L 0-220 Lab Interpretation (test code = Normal 40046-1) [facility] 18:55:21 Test Item Value Reference Range Interpretation Comments LIPASE (test code = 0880487012) 70 U/L 0-220 Lab Interpretation (test code = Normal 06697-1) [facility]2022-10-03 18:55:21 Test Item Value Reference Range Interpretation Comments LIPASE (test code = 2703127579) 70 U/L 0-220 Lab Interpretation (test code = Normal 07615-2) [facility] (78661)2022-04-01 04:58:46 Test Item Value Reference Range Interpretation Comments NA (test code = 139 mmol/L 135-145 3821056283) K (test code = 5.0 mmol/L 3.5-5 7513348197) CL (test code = 102 mmol/L 98-108 2330488521) CO2 TOTAL (test code 27 mmol/L 23-31 = 3155188730) AGAP (test code = 2-16 4849226540) BUN (test code = 13 mg/dL 7-23 6033431753) GLUCOSE (test code = 104 mg/dL 70-110 7505038559) CREATININE (test code 0.69 mg/dL 0.5-1.04 = 9926715718) TOTAL BILI (test code 0.5 mg/dL 0.1-1.1 = 5150087975) CALCIUM (test code = 9.6 mg/dL 8.6-10.6 8529191813) T PROTEIN (test code 7.2 g/dL 6.3-8.2 = 4791627551) ALBUMIN (test code = 4.6 g/dL 3.5-5 9087277543) ALK PHOS (test code = 60 U/L 34-122 3102236769) ALTv (test code = 15 U/L 5-35 1742-6) AST(SGOT) (test code 26 U/L 13-40 = 4548672661) eGFR (test code = mL/min/1.73m2 6855953163) MEDHAT (test code = MEDHAT) Association of [...] urine or abnormalities in imaging tests). [facility] 04:58:25 Test Item Value Reference Range Interpretation Comments LIPASE (test code = 9224760374) 71 U/L 0-220 Lab Interpretation (test code = Normal 35824-9) [facility] [id number] 04:46:42 Test Item Value Reference Range Interpretation Comments WBC (test code = See_Comment [Automated message] 6690-2) The system [employer] generated this result transmitted ref erence range: 4.30 - 1 1.10 10*3/?L. The re ference range was not u sed to interpret this result as normal/abnor mal. RBC (test code = See_Comment [Automated message] 789-8) The system [employer] generated this result transmitted ref erence range: [...] RDW-SD (test code 42.5 fL 39-49.9 = 58379-8) RDW-CV (test code 13.2 % 12-15.5 = 788-0) PLT (test code = See_Comment [Automated message] 777-3) The system [employer] generated this result transmitted ref erence range: 166 - 35 8 10*3/?L. The re ference range was not u sed to interpret this result as normal/abnor mal. MPV (test code = 10.4 fL 9.5-12.9 15248-1) NRBC/100 WBC (test See_Comment [Automat ed message] code = 3623109066) The syste m which generated this result transmitted ref erence range: 0.0 - 10 .0 /100 WBCs. The refer ence range was not u sed to interpret this result as normal/abnor mal. NRBC x10^3 (test See_Comment [Automated message] code = 5625885481) The syste m which generated this result transmitted ref erence range: 10*3/?L. The reference range was not used to interpr et this result as normal/abnormal . GRAN MAT (NEUT) % 69.5 % (test code = 770-8) IMM GRAN % (test 0.40 % code = 2822803865) LYMPH % (test code 23.3 % = 736-9) MONO % (test code 5.3 % = 5905-5) EOS % (test code = 0.7 % 713-8) BASO % (test code 0.8 % = 706-2) GRAN MAT 5.73 10*3/uL 1.88-7.09 x10^3(ANC) (test code = 6500781642) IMM GRAN x10^3 0.03 10*3/uL 0-0.06 (test code = 2336153542) LYMPH x10^3 (test 1.92 10*3/uL 1.32-3.29 code = 731-0) MONO x10^3 (test 0.44 10*3/uL 0.33-0.92 code = 742-7) EOS x10^3 (test 0.06 10*3/uL 0.03-0.39 code = 711-2) BASO x10^3 (test 0.07 10*3/uL 0.01-0.07 code = 704-7) [facility] [id number] 04:37:00 Test Item Value Reference Range Interpretation Comments POCT PREG (test code = 1605) negative Lab Interpretation (test code = Normal 41113-9) [facility] [id number] 04:37:00 Test Item Value Reference Range Interpretation Comments POCT PREG (test code = 1605) negative Lab Interpretation (test code = Normal 85451-5) [facility], [id number] 14:05:00 Test Item Value Reference Range Interpretation Comments Coronavirus NAAT, COVD19 SARS results, (test code = including Patient [id number]) Name, or MRN, were Coronavirus NAAT, COVD19 ical-devices/emergenc (test code = p-alh-chqicjdtgmrtcd. XIAMAHV3YLUS4.1) SARS-CoV-2 NAAT Result: Positive by RT-PCR A (test code = SARS-CoV-2 NAAT Result:) COVID-19 Status: AsymptomaticHCG, Urine Qual (LAB)2021-07-09 14:05:00 Test Item Value Reference Range Interpretation Comments HCG, Urine, Qual (test code = HCGU) Negative Negative Drug Screen,[id number] 14:05:00 Test Item Value Reference Range Interpretation [...] Negative code = UPROP) UA, Urinalysis w [id number] 14:05:00 Test Item Value Reference Range Interpretation Comments Color,Urine (test code = Yellow Yellow UCOL) Clarity,Urine (test code = Clear Clear UCLAR) Ph, Urine (test code = UPH) 8.5 5.0-8.0 H Specific [place],Urine 1.020 1.005-1.030 N (test code = USG) [...] Seen A UBACT) Complete Blood Count Auto [id number] 13:20:00 Test Item Value Reference Range Interpretation [...] code = NRBCP) 0 % Comprehensive Metabolic [id number] 13:20:00 Test Item Value Reference Range Interpretation [...] 72 U/L 46-116 N = ALP) Ethanol [id number] 13:20:00 Test Item Value Reference Range Interpretation [...] = HCGU) Negative Negative UA, Urinalysis Rflx Cult/[id number] 00:20:00 Test Item Value Reference Range Interpretation Comments Color,Urine (test code = Yellow Yellow UCOL) Clarity,Urine (test code = Clear Clear UCLAR) PH,Urine (test code = 7.5 5.5-8.5 UPH.XX) Specific [place],Urine 1.020 1.005-1.030 N (test code = USG) [...] cells/uL Negative (test code = ULEU) Urine [id number] 00:20:00 Test Item Value Reference Range Interpretation Comments RBC,Urine (test code = URBC.XX) 0-5 /HPF None Seen WBC,Urine (test code = UWBC.XX) 6-10 /HPF None Seen A Squamous Epithelial Cell,Urine 74-200 /HPF None Seen A (test code = USQEPI.XX) Bacteria,Urine (test code = Moderate /HPF None Seen A UBACT) Drug Screen,[id number] 00:20:00 Test Item Value Reference Range Interpretation [...] code = UPROP) Complete Blood Count Auto [id number] 00:09:00 Test Item Value Reference Range Interpretation [...] code = NRBCP) 0 % Comprehensive Metabolic [id number] 00:09:00 Test Item Value Reference Range Interpretation [...] 83 U/L 46-116 N = ALP) Ethanol [id number] 00:09:00 Test Item Value Reference Range Interpretation Comments Ethanol (test code < 3 mg/dL The pharm acological = ETOH) response to blo od alcohol levels mayvary from individual to i ndividual. The fatal ezio ntrationhas been reported t o be >400mg/dL. Coronavirus PCR, COVID19 [id number] 00:08:00 Test Item Value Reference Range Interpretation Comments Coronavirus PCR, For use under Emergency COVID19 Rapid (test Use Authorization (EUA) code = SARSCOV2) only. Coronavirus PCR, Reference Range: COVID19 Rapid (test Negative code = QLKDQFB46.1) SARS-CoV-2 PCR Result: Negative by RT-PCR (test code = SARS-CoV-2 PCR Result:) COVID-19 Status: AsymptomaticCARBAMAZEPHINE (TEGRETOL)2020-09-26 08:42:00 Test Item Value Reference Range Interpretation Comments CARBAMAZPN (test code = 98A) 19.3 ug/mL 4.0-12.0 HH CARBAMAZEPHINE (TEGRETOL)2020-09-26 05:04:00 Test Item Value Reference Range Interpretation Comments CARBAMAZPN (test code = 98A) 20.1 ug/mL 4.0-12.0 HH URINALYSIS WITH [id number] 02:45:00 Test Item Value Reference Range Interpretation [...] HPF NONE AMORPH UR (test code = GREMÁN) FEW / HPF NONE A TRICH UR (test code = UTRICH) /HPF NONE YEAST UR (test code = UY) /HPF NONE SPERM UR (test code = USPERM) /HPF NONE DRUGS OF [id number] 02:43:00 Test Item Value Reference Range Interpretation [...] clinical and epidemiological data PRO TIME AND [id number] 00:51:00 Test Item Value Reference Range Interpretation [...] Heparin. Order Code is ANTI-XA COMPREHENSIVE METABOLIC [id number] 00:47:00 Test Item Value Reference Range Interpretation [...] as normal/abnormal . GFR 154 See_Comment [Automated SWAZI (test mL/min/1.73m\\S\\2 message] The code = GFRAA) [...] to interpret this result as normal/abnormal . [id number] 00:47:00 Test Item Value Reference Range Interpretation Comments ACETAMINPH (test code = 94M) 3.6 ug/mL 10.0-30.0 L CARDIAC [id number] 00:47:00 Test Item Value Reference Range Interpretation Comments TROPONIN I (test code = A84) <0.015 ng/mL 0.000-0.045 ALCOHOL BLOOD (ETOH)2020-09-26 00:44:00 Test Item Value Reference Range Interpretation Comments ETOH (test code = ETHANOL HALC) The result is to be used only for medical purposes ALCOHOL (test <10 mg/dL See_Comment [Automated me ssage] code = 56A) The system [employer] generated this result transmit gómez reference range : <=10. The refer ence range was not u sed to interpret th is result as normal/abnormal . [id number] 00:42:00 Test Item Value Reference Range Interpretation Comments SALICYLATE (test code = 94B) <1.7 mg/dL 2.8-20.0 L SERUM [id number] 00:38:00 Test Item Value Reference Range Interpretation [...]
[2023-04-28 00:14] LABS: Absolute Lymphocytes (CBC) 2.6 K/uL (0.7-4.9); Hematocrit 39.2 % (36.0-45.0); Lymphocytes % 35.4 % (15.3-44.8); MCV 86.6 fL (80-100); MPV 8.1 fL (7.6-11.3); Platelets 272 thou/uL (152-406); RBC Red Blood Cell Count 4.52 M/uL (3.86-4.86)
[2023-04-28 00:32] LABS: Albumin 3.4 g/dL (3.4-5.0); Bilirubin Total 0.3 mg/dL (0.2-1.0); Potassium 3.9 mEq/L (3.5-5.1); Protein, Total 6.3 g/dL (6.4-8.2)
[2023-04-28 00:54] LABS: Urine Bacteria None Seen /HPF (<20); Urine Bilirubin NEGATIVE (Negative); Urine Blood Trace (Negative); Urine Clarity Clear (Clear); Urine Color Colorless (Yellow); Urine Crystals Unidentified Few /HPF (None Seen); Urine Glucose NEGATIVE (Negative); Urine Protein NEGATIVE (Negative); Urine RBC <5 /HPF (None Seen); Urine Urobilinogen Normal (Normal); Urine pH 6.5 (5.0-7.0)
--- NOTE | 2023-04-28 02:43 | ER ---
Nurse's Notes [facility] Name: Vanda Pompa Age: 22 yrs Sex: Female : 2000 Arrival Date: 04/27/2023 Time: 23:05 Bed 2 Private MD: Diagnosis: Other and unspecified ovarian cysts Presentation: 04/27 23:18 Chief complaint: Patient states: left pelvic pain of 10 with vaginal bleeding,onset 2 pf1 months.Patient stated the pelvic pain is worse today. Patient stated was diagnosed with UTI 2 days ago here. Patient stated is currently taking antibiotics for UTI, does not the name. Patient stated followed up with an ADMITTING OFFICE ESCORT with [facility] today. Patient stated used 3 feminine pads throughout today. Coronavirus screen: Vaccine status: Patient reports receiving the 2nd dose of the covid vaccine. 4 doses of pfizer Client denies travel out of the [place] in the last 14 days. At this time, the client does not indicate any symptoms associated with coronavirus-19. Ebola Screen: Patient negative for fever greater than or equal to 101.5 degrees Fahrenheit, and additional compatible Ebola Virus Disease symptoms. Initial Sepsis Screen: Does the patient meet any 2 criteria? No. Patient's initial sepsis screen is negative. Does the patient have a suspected source of infection? No. Patient's initial sepsis screen is negative. Risk Assessment: Do you want to hurt yourself or someone else? Patient reports no desire to harm self or others. 23:18 Method Of Arrival: Ambulatory pf1 23:18 Acuity: FREDY 3 pf1 04/28 00:11 Onset of symptoms is unknown. [facility] ADMITTING OFFICE ESCORT: 00:11 LMP 02/19/2023, unknown [facility] Historical: - Allergies: 04/27 23:27 No Known Allergies; pf1 - Home Meds: 04/28 00:12 Abilify Oral [Active]; Lamictal Oral [Active]; Strattera Oral [Active]; km8 - PMHx: 04/27 23:27 adhd; Anxiety; Asthma; Bipolar disorder; depressive disorder; pf1 23:27 ovarian cyst; pf1 - PSHx: 23:27 ear surgery; pf1 - Immunization history:: Adult Immunizations up to date, Last tetanus immunization: < 10 years ago Flu vaccine is up to date. - Social history:: Smoking status: Reported history of juuling and/or vaping. Patient/guardian denies using alcohol, street drugs. Screenin/27 00:08 [facility] ED Fall Risk Assessment (Adult) History of falling in the last 3 months, km8 including since admission No falls in past 3 months (0 pts) Confusion or Disorientation No (0 pts) Intoxicated or Sedated No (0 pts) Impaired Gait No (0 pts) Mobility Assist Device Used No (0 pt) Altered Elimination No (0 pt) Score/Fall Risk Level 0 - 2 = Low Risk Oriented to surroundings, Maintained a safe environment, Educated pt \T\ family on fall prevention, incl call for assistance when getting out of bed, Assessed \T\ reinforced patient's understanding of fall precautions. Abuse screen: Denies threats or abuse. Denies injuries from another. Nutritional screening: No deficits noted. Tuberculosis screening: No symptoms or risk factors identified. Assessment: 00:08 General: Appears in no apparent distress. comfortable, Behavior is calm, cooperative, km8 appropriate for age. Pain: Complains of pain in suprapubic area Pain currently is 10 out of 10 on a pain scale. Neuro: No deficits noted. Perez Agitation-Sedation Scale (RASS): 0 - Alert and Calm Level of Consciousness is awake, alert, obeys commands, Oriented to person, place, time, situation. Cardiovascular: No deficits noted. Denies chest pain, shortness of breath, Capillary refill < 3 seconds Patient's skin is warm and dry. Respiratory: No deficits noted. Airway is patent Respiratory effort is even, unlabored, Respiratory pattern is regular, symmetrical. GI: No deficits noted. No signs and/or symptoms were reported involving the gastrointestinal system. : Reports pain in left in suprapubic area Pain is 10 out of 10 on a pain scale. vaginal bleeding that is since 2 months. EENT: No deficits noted. No signs and/or symptoms were reported regarding the EENT system. Derm: No deficits noted. No signs and/or symptoms reported regarding the dermatologic system. Skin is intact, is healthy with good turgor, Skin is dry, Skin is normal, Skin temperature is warm. Musculoskeletal: No deficits noted. No signs and/or symptoms reported regarding the musculoskeletal system. Circulation, motion, and sensation intact. Range of motion: intact in all extremities. 01:07 Reassessment: Patient appears in no apparent distress at this time. No changes from km8 previously documented assessment. Patient and/or family updated on plan of care and expected duration. Pain level reassessed. Patient is alert, oriented x 3, equal unlabored respirations, skin warm/dry/pink. 02:15 Reassessment: Patient appears in no apparent distress at this time. No changes from km8 previously documented assessment. Patient and/or family updated on plan of care and expected duration. Pain level reassessed. pt resting comfortably in bed with eyes closed at this time. Vital Signs: 04/27 23:18 BP 115 / 74; Pulse 83; Resp 16; Temp 98.5; Pulse Ox 100% on R/A; Weight 56.25 kg; pf1 Height 5 ft. 3 in. ; Pain 04/11; 04/28 00:05 BP 103 / 65; Pulse 73; Resp 16 S; Pulse Ox 98% on R/A; km8 01:00 BP 90 / 62; Pulse 67; Resp 16; Pulse Ox 97% on R/A; km8 02:13 BP 96 / 60; Pulse 65; Resp 16 S; Pulse Ox 96% on R/A; km8 03:08 BP 101 / 65; Pulse 70; Resp 16; Pulse Ox 98% on R/A; km8 04/27 23:18 Body Mass Index 21.97 (56.25 kg, 160.02 cm) pf1 04/27 23:18 Pain Scale: Adult pf1 ED Course: 04/27 23:09 Patient arrived in ED. gm2 23:09 Dick Nathan PA is PHCP. cp 23:09 Rubén Doss MD is Attending Physician. cp 23:27 Triage completed. pf1 04/28 00:07 Lakeisha Chacon, RN is Primary Nurse. 8 00: CBC with Diff Sent. 00: CMP Sent. 00: Lipase Sent. 00:07 Inserted saline lock: 22 gauge in right antecubital area, using aseptic technique. km8 Blood collected. 00:08 Patient maintains SpO2 saturation greater than 95% on room air. km8 00:08 Patient has correct armband on for positive identification. Placed in gown. Bed in low km8 position. Call light in reach. Side rails up X 1. Client placed on continuous cardiac and pulse oximetry monitoring. NIBP monitoring applied. 00:11 Arm band placed on right wrist. km8 00:45 Test, Urine Sent. km8 00:45 Urinalysis w/ reflexes Sent. km8 01:32 CT Abd/Pelvis - IV Contrast Only In Process Unspecified. EDMS 03:08 No provider procedures requiring assistance completed. IV discontinued, intact, km8 bleeding controlled, No redness/swelling at site. Pressure dressing applied. 03:08 Provided Education on: d/c teaching. km8 Administered Medications: 03:04 Drug: Ketorolac IVP 15 mg IVP once Route: IVP; Site: right antecubital; km8 03:11 Follow up: Response: No adverse reaction km8 Medication: 03:08 VIS not applicable for this client. km8 Outcome: 02:43 Discharge ordered by MD. mariano 03:10 Discharged to home ambulatory, km8 03:10 Condition: good 03:10 Discharge instructions given to patient, Instructed on discharge instructions, follow up and referral plans. medication usage, Demonstrated understanding of instructions, follow-up care, medications, Prescriptions given X 1, 03:11 Patient left the ED. km8 Signatures: Dispatcher [employer] EDMS Dick Nathan PA PA cp Finley, Pamala RN RN pf1 Kaye Hutchison 2 Lakeisha Chacon RN RN km8 Corrections: (The following items were deleted from the chart) 04/27 23:28 23:27 PMHx: ovarian cyst (ear surgery); pf1 pf1 04/28 00:11 00:08 : Reports pain vaginal bleeding that is km8 km8
--- NOTE | 2023-04-28 02:43 | EDPHYS ---
Physician Documentation [facility] Name: Vanda Pompa Age: 22 yrs Sex: Female : 2000 Arrival Date: 04/27/2023 Time: 23:05 Bed 2 Private MD: ED Physician Rubén Doss HPI: 04/27 23:40 This 22 yrs old Female presents to ER via Ambulatory with complaints of Pelvic Pain. cp 23:40 The patient presents with abdominal pain in the left lower quadrant. cp 23:40 The symptoms do not radiate. cp 23:40 Associated signs and symptoms: Pertinent negatives: constipation, diarrhea, fever, cp vomiting. Severity of pain: in the emergency department the pain is unchanged despite home interventions. Patient reports being seen in this ED 2 days ago and diagnosed with left ovarian cyst. Reports continued pain and concerned she will not be able to f/u due to losing insurance next month. 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 - Social history:: Smoking status: Reported history of juuling and/or vaping. Patient/guardian denies using alcohol, street drugs. ROS: 23:45 Constitutional: Negative for body aches, chills, fever, poor PO intake, cp 23:45 Eyes: Negative for injury, pain, redness, and discharge, cp 23:45 ENT: Negative for drainage from ear(s), ear pain, sore throat, difficulty swallowing, difficulty handling secretions, 23:45 Cardiovascular: Negative for chest pain, palpitations, 23:45 Respiratory: Negative for cough, shortness of breath, wheezing, 23:45 Abdomen/GI: Positive for abdominal pain, of the left lower quadrant, Negative for vomiting, diarrhea, constipation, 23:45 : Negative for urinary symptoms, vaginal bleeding, vaginal discharge, 23:45 Neuro: Negative for altered mental status, dizziness, headache, weakness, 23:45 All other systems are negative, Exam: 23:48 Constitutional: The patient appears in no acute distress, alert, awake, non-toxic, well cp developed, well nourished, 23:48 Head/Face: Normocephalic, atraumatic. cp 23:48 Eyes: Periorbital structures: appear normal, Conjunctiva: normal, no exudate, no injection, Sclera: no appreciated abnormality, Lids and lashes: appear normal, bilaterally, 23:48 ENT: External ear(s): are unremarkable, Nose: is normal, Mouth: Lips: moist, Oral mucosa: moist, Posterior pharynx: is normal, airway is patent, no erythema, no exudate, 23:48 Chest/axilla: Inspection: normal, 23:48 Cardiovascular: Rate: normal, Rhythm: regular, 23:48 Respiratory: the patient does not display signs of respiratory distress, Respirations: normal, no use of accessory muscles, no retractions, labored breathing, is not present, Breath sounds: are clear throughout, no decreased breath sounds, no stridor, no wheezing, 23:48 Abdomen/GI: Inspection: abdomen appears normal, Bowel sounds: active, all quadrants, Palpation: soft, in all quadrants, mild abdominal tenderness, in the left lower quadrant, rebound tenderness, is not appreciated, voluntary guarding, is not appreciated, involuntary guarding, is not appreciated, 23:48 Back: pain, is absent, ROM is normal, 23:48 Neuro: Orientation: to person, place \T\ time. Mentation: is normal, Motor: moves all fours, strength is normal, Sensation: is normal, Vital Signs: 23:18 BP 115 / 74; Pulse 83; Resp 16; Temp 98.5; Pulse Ox 100% on R/A; Weight 56.25 kg; pf1 Height 5 ft. 3 in. ; Pain 04/11; 04/28 00:05 BP 103 / 65; Pulse 73; Resp 16 S; Pulse Ox 98% on R/A; km8 01:00 BP 90 / 62; Pulse 67; Resp 16; Pulse Ox 97% on R/A; km8 02:13 BP 96 / 60; Pulse 65; Resp 16 S; Pulse Ox 96% on R/A; [facility] 03:08 BP 101 / 65; Pulse 70; Resp 16; Pulse Ox 98% on R/A; [facility] 04/27 23:18 Body Mass Index 21.97 (56.25 kg, 160.02 cm) pf1 04/27 23:18 Pain Scale: Adult pf1 MDM: 04/27 23:33 Patient medically screened. 04/28 00:00 Differential diagnosis: appendicitis, non-specific abd pain, Ovarian Torsion, cp Peritonitis, Pelvic Inflammatory Disease, Pyelonephritis, Ureterolithiasis, urinary tract infection. 02:37 Data reviewed: vital signs, nurses notes, radiologic studies, CT scan. ED course: cp Patient sleeping in exam room, appears comfortable. Discussed results of today's testing. 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 Will discharge to home to f/u in clinic with DR Barba. 04/27 23:48 Order name: CBC with Diff; Complete Time: 00:40 cp 04/27 23:48 Order name: CMP; Complete Time: 00:40 cp 04/28 00:40 Interpretation: Normal except: CL 110; ANION GAP 4.9; AST 14; TP 6.3. cp 04/27 23:48 Order name: Lipase; Complete Time: 00:40 cp 04/27 23:48 Order name: Test, Urine; Complete Time: 01:01 cp 04/27 23:48 Order name: Urinalysis w/ reflexes; Complete Time: 01:01 cp 04/28 01:01 Interpretation: Normal except: UBLD Trace; UESTR 75. 04/27 23:48 Order name: CT Abd/Pelvis - IV Contrast Only cp 04/27 23:48 Order name: IV Saline Lock; Complete Time: 00:07 cp 04/27 23:48 Order name: Labs collected and sent; Complete Time: 00:07 cp Administered Medications: 03:04 Drug: Ketorolac IVP 15 mg IVP once Route: IVP; Site: right antecubital; 8 03:11 Follow up: Response: No adverse reaction 8 Disposition: 04:50 Co-signature as Attending Physician, Rubén Doss MD I reviewed the patient's care rn provided by the Advanced Practice Provider and agree with the diagnosis and treatment plan. Disposition Summary: 04/28/23 02:43 Discharge Ordered Notes: Location: Home cp Problem: an ongoing problem cp Symptoms: have improved cp Condition: Stable cp Diagnosis - Other and unspecified ovarian cysts cp Followup: cp - With: Private Physician - When: 1 week - Reason: Recheck today's complaints Discharge Instructions: - Discharge Summary Sheet cp - Ovarian Cyst cp Forms: - Medication Reconciliation Form cp - Thank You Letter cp - Antibiotic Education cp - Prescription Opioid Use cp - Patient Portal Instructions cp - Leadership Thank You Letter cp Prescriptions: - Diclofenac Sodium 75 mg Oral Tablet Sustained Release - take 1 tablet ORAL route 2 times per day; 30 tablet; Refills: 0, Product cp Selection Permitted Signatures: Dispatcher [employer] EDMS Rubén Doss MD MD rn Page, Corey, PA PA cp Elisabeth Roger RN RN pf1 Lakeisha Chacon RN RN km8 Corrections: (The following items were deleted from the chart) 04/27 23:28 23:27 PMHx: ovarian cyst (ear surgery); pf1 pf1 04/28 02:39 02:37 ED course: Patient sleeping in exam room, appears comfortable. cp cp
[2023-04-28] MEDS ORDERED: KETOROLAC 30 MG/ML INJ ONE (03:09)
[2023-04-28 03:22] VITALS: TEMP 98.5
[2023-04-28 03:29] VITALS: BP 101/65; O2SAT 98
--- NOTE | 2023-04-28 20:22 | RAD REPORT ---
EXAM DESCRIPTION: Abdomen Pelvis W Contrast CLINICAL HISTORY: Left lower abdomen pain TECHNIQUE: Contiguous axial images obtained through the abdomen and pelvis following the uneventful administration of IV contrast. Coronal and sagittal reformatted images were provided. This exam was performed according to our departmental dose-optimization program, which includes autom ated exposure control, adjustment of the mA and/or kV according to patient size and/or use of iterati ve reconstruction technique. COMPARISON: Correlation is made with prior transvaginal pelvic ultrasound from April 25 FINDINGS: Lung bases: Clear Liver: The dome of the liver is not included on the images obtained. Gallbladder and biliary system: Unremarkable Pancreas: Unremarkable Spleen: Unremarkable Adrenals: Unremarkable Kidneys: Normal renal cortical enhancement. No calculi. No hydronephrosis. GI: No obstruction. No appreciable mucosal thickening. Appendix: No findings to suggest acute appendicitis. Urinary bladder: Unremarkable Reproductive: 4.5 cm cyst in the left adnexa, also identified on prior ultrasound examination. Lymph nodes: No pathologically enlarged lymph nodes. Peritoneum: No focal fluid collection. No free air. Vessels: No abdominal aortic aneurysm. Abdominal wall: Unremarkable Bones: Old healed pelvic fractures. IMPRESSION: 1. 4.5 cm cyst in the left adnexa, also identified on prior ultrasound examination. 2. No evidence of acute intra-abdominal or pelvic pathology.. Electronically signed by: Duke Britt MD 04/28/2023 1:54 AM CDT Due to temporary technical issues with the PACS/Fluency reporting system, reports are being signed by the in house radiologists without review as a courtesy to insure prompt reporting. The interpreting radiologist is fully responsible for the content of the report.
== END 2023-04-28 03:11 | disposition home or self-care (01) ==
LOC: ER 23:05
DX: N83.292 Other ovarian cyst, left side (principal); R10.32 Left lower quadrant pain; R10.2 Pelvic and perineal pain; F41.9 Anxiety disorder, unspecified; J45.909 Unspecified asthma, uncomplicated; F31.9 Bipolar disorder, unspecified
CPT/HCPCS: 85025; 81001; 36415; 81025; 83690; 80053; 74177; 96374; 99285; Q9967

== ENCOUNTER 2023-05-03 11:51 | Emergency (ER) | payer OTHER ==
--- OUTSIDE RECORDS SUMMARY | 2023-05-03 12:28 | XMS REPORT | Continuity of Care Document ---
:2000 Author Organization [facility] t Address [address] [facility]. [address] [place] [address] Support Name Relationship Address Phone NONE, NO ONE UN [phone] [place] [address] NONE, NO ONE UN [address] [place] [address] Dona Sanford Aunt [address] [place] [address] ELVIN POMPA Mother Unavailable Unavailable Elvin Pompa Grandmother [address] [place] [address] UN Unavailable Unavailable Unavailable Unavailable Unavailable Unavailable Unavailable NONE, NONE SA [address] [phone] [place] [address] ELVIN POMPA Grandparent [address] + [place] [address] ELVIN POMPA Grandparent [address] [facility] [place] [address] Elvin Pompa Grandparent [address] [facility]t [address] [place] [address] ELVIN POMPA Grandparent [address] [facility] [id number] [place] [address] Elvin Pompa Grandparent [phone] + [place] [address] Vicenta Lynn Emergency Contact [address] [place] [address] Care Team Providers Name Role Phone Pcp, Patient Does Not Have A Primary Care Physician [phone] ALEJANDRA MORROW Attending Clinician Unavailable ALEJANDRA MORROW Attending Clinician Unavailable SUSAN VALVERDE Attending Clinician Unavailable DEONNA MELEDNREZ Attending Clinician Unavailable Deonna Ferrell Attending Clinician Ole AIR CARRIER OPERATIONS INSPECTORGodwin Ureña Attending Clinician Lab, Ang - Db Attending Clinician Unavailable GODWIN HANDY Attending Clinician Unavailable Susan Valverde MD Attending Clinician Pcp-Lab Attending Clinician Unavailable Doctor Unassigned, [place] Attending Clinician Unavailable LUCINDA WILLS Attending Clinician [...] Unavailable IRASEMA ROBLEDO Attending Clinician Unavailable Venkat AIR CARRIER OPERATIONS INSPECTORIrasema Attending Clinician Shivani Castaneda Attending Clinician Nurse, [facility] Attending Clinician Unavailable SHIVANI GUERRA Attending Clinician Unavailable Negrita Moise LVN Attending Clinician Keagan Luo MD Attending Clinician Clinic-Stv, Care Transition Attending Clinician Unavailable NOLVIA HUSAIN Attending Clinician Unavailable Nolvia Husain MD Attending Clinician Vignesh Mack MD Attending Clinician Vaccine, [facility] Attending Clinician Unavailable VIGNESH MACK Attending [...] Clinician TIM HOLGUIN Attending Clinician Unavailable Immunization, [facility] Attending Clin ician Unavailable [place], CHELSY MCKEON [...] Date Expiration Date [place] [id number] [facility] [place]ID [place] [id number] 2021 00:00:00 [facility] [id number] 2016 CHOICE MEDICAID 00:00:00 Problems Condition Condition Condition Status Onset Resolution Last Treating Co mments Source Name Details Category Date Date Treatment Clinician Date Drug abuse Drug abuse Disease Active 2022-07 U nivers 0-26 ity of 00:00: [place] 00 Medical Branch Trauma Trauma Disease Active 2021-07 Univers 0-03 ity of 00:00: [place] [facility] Menorrhagi Menorrhagi Disease Active U nivers a with a with 4-29 ity of regular regular 00:00: [place] cycle cycle 00 Medical Branch 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-01 [place] depressive [place] disorder disorder 00 Medica [place] Bipolar Bipolar Disease Active Overview: Univ ers disorder, disorder, 5-19 Formattin i ty of in partial in partial 00:00: g of this [place] remission, remission, 00 note Me dical most [...] anxiety [place] disorder[place] disorder[place] 00 [facility] Branch Attention Attention Disease Active 2008-07 Overview: Univers deficit deficit 2-22 Formattin ity o f hyperactiv hyperactiv 00:00: g of this [place] ity ity 00 note Medical disorder disorder might be Bran ch (ADHD) (ADHD) different from the original. 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 Utility Allergies, Adverse Reactions, Alerts Allergy Allergy Status Severity Reaction(s) Onset Inactive Treating Comm ents Source Name Type Date Date Clinician No Known DA Active U [facility] 07-15 [facility] 00:00: Health 00 are [place] No Known DA Active U [facility] 07-04 [facility] No Known DA Active U [facility] 07-09 Allergie 00:00: s 00 No Known DA Active U 2020-07 [facility] 07-25 Allergie 00:00: s 00 Unable DA Active U 2020-07 [facility] to 07-25 Assess 00:00: 00 No Known DA Active [facility] s NO KNOWN Drug Active Univers ALLERGIE Class ity of S [facility] Family History Family Member Diagnosis Comments Start Date Stop Date Source [facility] Natural father Alcohol abuse [facility] Natural father Substance abuse Unive [facility] Natural mother Psychiatry [facility] Social History Social Habit Start Date Stop Date Quantity Comments Source Gender identity [facility] SDOH University o f Alcohol Comment [place] Med ical Branch Alcohol intake 2023-04-27 2023-04-27 Lifetime University of 00:00:00 00:00:[address] non-[address] [facility] (finding) Branch History of Social 2023-04-18 2023-04-18 Univers ity of function 00:00:00 00:00:00 [facility] Exposure to 2022-11-15 2022-11-25 Not sure University of SARS-CoV-2 (event) 00:00:00 08:41:00 [facility] Branch Tobacco use and 2022-01-17 2022-01-17 Smokeless Universit y of exposure 00:00:00 00:00:00 tobacco non-user [place] Me dical Branch History SDOH 2020-04-20 2020-04-20 1 University o f Alcohol Frequency 00:00:00 00:00:00 [place] M edical Branch History SDOH 2020-04-20 2020-04-20 99 University o f Alcohol Std Drinks 00:00:00 00:00:00 [place] [facility] History SDOH 2020-04-20 2020-04-20 1 University o f Alcohol Binge 00:00:00 00:00:00 [facility] al Branch Sex Assigned At [birth year] Universit y of 00:00:00 00:00:00 [facility] Smoking Status Start Date Stop Date Source Never smoked tobacco [facility] Medications Ordered Filled Start Stop Current Ordering Indication Dosage Frequency Signature Comments Components Source Medication Medication Date Date Medication? Clinician (SIG) Name Name ketorolac 2022-07- No 60mg 60 mg, Unive rs (TORADOL) 0-25 10-25 Intramuscu ity of injection 00:00: 00:12 lar, ONCE, [place] 60 mg 00 :00 1 dose, On Medical Tue Branch 04/25/23 at 1900, ARLEN ketorolac 2022-07 Yes [id number] 10mg Take 1 Univers 10 mg 0-24 [id number] tablet by ity of tablet 00:00: mouth [place] 00 every 6 Medical (six) Branch hours as needed for Pain (scale 4-6). ketorolac 2022-07 Yes [id number] 10mg Take 1 Univers 10 mg 0-24 [id number] tablet by ity of tablet 00:00: mouth [place] 00 every 6 Medical (six) Branch hours as needed for Pain (scale 4-6). ketorolac 2022-07 Yes [id number] 10mg Take 1 Univers 10 mg 0-24 [id number] tablet by ity of tablet 00:00: mouth [place] 00 every 6 Medical (six) Branch hours as needed for Pain (scale 4-6). ketorolac 2022-07 Yes [id number] 10mg Take 1 Univers 10 mg 0-24 [id number] tablet by ity of tablet 00:00: mouth [place] 00 every 6 Medical (six) Branch hours as needed for Pain (scale 4-6). ketorolac 2022-07 Yes [id number] 10mg Take 1 Univers 10 mg 0-24 [id number] tablet by ity of tablet 00:00: mouth [place] 00 every 6 Medical (six) Branch hours as needed for Pain (scale 4-6). ARIPiprazol 2022-07 Yes [id number] 15mg Take 1 Un kayleen e 15 mg 0-17 tablet by ity of tablet 00:00: mouth in [place] 00 the Medical morning. Branch atomoxetine 2022-07 Yes [id number] 80mg Take 1 Univers 80 mg 0-17 capsule by ity of capsule 00:00: mouth in [place] the Medical morning. Branch naltrexone 2022-07 Yes [id number] 50mg Take 1 U nivers 50 mg 0-17 tablet by ity of tablet 00:00: mouth in [place] the Medical morning. Branch ARIPiprazol 2022-07 Yes [id number] 15mg Take 1 Un kayleen e 15 mg 0-17 tablet by ity of tablet 00:00: mouth in [place] the Medical morning. Branch atomoxetine 2022-07 Yes [id number] 80mg Take 1 Univers 80 mg 0-17 capsule by ity of capsule 00:00: mouth in [place] the Medical morning. Branch naltrexone 2022-07 Yes [id number] 50mg Take 1 U nivers 50 mg 0-17 tablet by ity of tablet 00:00: mouth in [place] the Medical morning. Branch ARIPiprazol 2022-07 Yes [id number] 15mg Take 1 Un kayleen e 15 mg 0-17 tablet by ity of tablet 00:00: mouth in [place] the Medical morning. Branch atomoxetine 2022-07 Yes [id number] 80mg Take 1 Univers 80 mg 0-17 capsule by ity of capsule 00:00: mouth in [place] the Medical morning. Branch naltrexone 2022-07 Yes [id number] 50mg Take 1 U nivers 50 mg 0-17 tablet by ity of tablet 00:00: mouth in [place] the Medical morning. Branch ARIPiprazol 2022-07 Yes [id number] 15mg Take 1 Un kayleen e 15 mg 0-17 tablet by ity of tablet 00:00: mouth in [place] the Medical morning. Branch atomoxetine 2022-07 Yes [id number] 80mg Take 1 Univers 80 mg 0-17 capsule by ity of capsule 00:00: mouth in [place] the Medical morning. Branch naltrexone 2022-07 Yes [id number] 50mg Take 1 U nivers 50 mg 0-17 tablet by ity of tablet 00:00: mouth in [place] the Medical morning. Branch ARIPiprazol 2022-07 Yes [id number] 15mg Take 1 Un kayleen e 15 mg 0-17 tablet by ity of tablet 00:00: mouth in [place] the Medical morning. Branch atomoxetine 2022-07 Yes [id number] 80mg Take 1 Univers 80 mg 0-17 capsule by ity of capsule 00:00: mouth in [place] 00 the Medical morning. Branch naltrexone 2022-07 Yes [id number] 50mg Take 1 U nivers 50 mg 0-17 tablet by ity of tablet 00:00: mouth in [place] 00 the Medical morning. Branch ARIPiprazol 2022-07 Yes [id number] 15mg Take 1 Un kayleen e 15 mg 0-17 tablet by ity of tablet 00:00: mouth in [place] 00 the Medical morning. Branch atomoxetine 2022-07 Yes [id number] 80mg Take 1 Univers 80 mg 0-17 capsule by ity of capsule 00:00: mouth in [place] 00 the Medical morning. Branch naltrexone 2022-07 Yes [id number] 50mg Take 1 U nivers 50 mg 0-17 tablet by ity of tablet 00:00: mouth in [place] 00 the Medical morning. Branch ARIPiprazol 2022-07 Yes [id number] 15mg Take 1 Un kayleen e 15 mg 0-17 tablet by ity of tablet 00:00: mouth in [place] 00 the Medical morning. Branch atomoxetine 2022-07 Yes [id number] 80mg Take 1 Univers 80 mg 0-17 capsule by ity of capsule 00:00: mouth in [place] the Medical morning. Branch naltrexone 2022-07 Yes [id number] 50mg Take 1 U nivers 50 mg 0-17 tablet by ity of tablet 00:00: mouth in [place] the Medical morning. Branch ARIPiprazol 2022-07 Yes [id number] 15mg Take 1 Un kayleen e 15 mg 0-17 tablet by ity of tablet 00:00: mouth in [place] the Medical morning. Branch atomoxetine 2022-07 Yes [id number] 80mg Take 1 Univers 80 mg 0-17 capsule by ity of capsule 00:00: mouth in [place] the Medical morning. Branch naltrexone 2022-07 Yes [id number] 50mg Take 1 U nivers 50 mg 0-17 tablet by ity of tablet 00:00: mouth in [place] 00 the Medical morning. Branch Lamotrigine 2022-07- Yes [id number] 50mg Take 1 Univers 50 mg 0-17 01-16 tablet by ity of tablet 00:00: 05:59 mouth in [place] 00 :00 the Medical morning Branch for 90 days. Lamotrigine 2022-07- Yes [id number] 50mg Take 1 Univers 50 mg 0-17 01-16 tablet by ity of tablet 00:00: 05:59 mouth in [place] 00 :00 the Medical morning Branch for 90 days. Lamotrigine 2022-07- Yes [id number] 50mg Take 1 Univers 50 mg 0-17 01-16 tablet by ity of tablet 00:00: 05:59 mouth in [place] 00 :00 the Medical morning Branch for 90 days. Lamotrigine 2022-07- Yes [id number] 50mg Take 1 Univers 50 mg 0-17 01-16 tablet by ity of tablet 00:00: 05:59 mouth in [place] 00 :00 the Medical morning Branch for 90 days. Lamotrigine 2022-07- Yes [id number] 50mg Take 1 Univers 50 mg 0-17 01-16 tablet by ity of tablet 00:00: 05:59 mouth in [place] 00 :00 the Medical morning Branch for 90 days. Lamotrigine 2022-07- Yes [id number] 50mg Take 1 Univers 50 mg 0-17 01-16 tablet by ity of tablet 00:00: 05:59 mouth in [place] 00 :00 the [facility] morning Branch for 90 days. Lamotrigine 2022-07- Yes [id number] 50mg Take 1 Univers 50 mg 0-17 01-16 tablet by ity of tablet 00:00: 05:59 mouth in [place] 00 :00 the Medical morning Branch for 90 days. Lamotrigine 2022-07- Yes [id number] 50mg Take 1 Univers 50 mg 0-17 01-16 tablet by ity of tablet 00:00: 05:59 mouth in [place] 00 :00 the Medical morning Branch for 90 days. hydrOXYzine 2023-0 Yes [id number] 25mg Take 1 Univers 25 mg 7-25 tablet by ity of tablet 00:00: mouth [place] 00 every 6 Medical (six) Branch hours as needed for Anxiety. hydrOXYzine 2023-0 Yes [id number] 25mg Take 1 Univers 25 mg 7-25 tablet by ity of tablet 00:00: mouth [place] 00 every 6 Medical (six) Branch hours as needed for Anxiety. hydrOXYzine 2023-0 Yes [id number] 25mg Take 1 Univers 25 mg 7-25 tablet by ity of tablet 00:00: mouth [place] 00 every 6 Medical (six) Branch hours as needed for Anxiety. hydrOXYzine 2023-0 Yes [id number] 25mg Take 1 Univers 25 mg 7-25 tablet by ity of tablet 00:00: mouth [place] 00 every 6 Medical (six) Branch hours as needed for Anxiety. hydrOXYzine 2023-0 Yes [id number] 25mg Take 1 Univers 25 mg 7-25 tablet by ity of tablet 00:00: mouth [place] 00 every 6 Medical (six) Branch hours as needed for Anxiety. hydrOXYzine 2023-0 Yes [id number] 25mg Take 1 Univers 25 mg 7-25 tablet by ity of tablet 00:00: mouth [place] 00 every 6 Medical (six) Branch hours as needed for Anxiety. hydrOXYzine 2023-0 Yes [id number] 25mg Take 1 Univers 25 mg 7-25 tablet by ity of tablet 00:00: mouth [place] 00 every 6 Medical (six) Branch hours as needed for Anxiety. hydrOXYzine 2023-0 Yes [id number] 25mg Take 1 Univers 25 mg 7-25 tablet by ity of tablet 00:00: mouth [place] 00 every 6 Medical (six) Branch hours as needed for Anxiety. hydrOXYzine 2023-0 Yes [id number] 25mg Take 1 Univers 25 mg 7-25 tablet by ity of tablet 00:00: mouth [place] 00 every 6 Medical (six) Branch hours as needed for Anxiety. hydrOXYzine 2023-0 Yes [id number] 25mg Take 1 Univers 25 mg 7-25 tablet by ity of tablet 00:00: mouth [place] 00 every 6 Medical (six) Branch hours as needed for Anxiety. hydrOXYzine 2023-0 Yes [id number] 25mg Take 1 Univers 25 mg 7-25 tablet by ity of tablet 00:00: mouth [place] 00 every 6 Medical (six) Branch hours as needed for Anxiety. hydrOXYzine 2023-0 Yes [id number] 25mg Take 1 Univers 25 mg 7-25 tablet by ity of tablet 00:00: mouth [place] 00 every 6 Medical (six) Branch hours as needed for Anxiety. hydrOXYzine 2023-0 Yes [id number] 25mg Take 1 Univers 25 mg 7-25 tablet by ity of tablet 00:00: mouth [place] 00 every 6 Medical (six) Branch hours as needed for Anxiety. hydrOXYzine 2023-0 Yes [id number] 25mg Take 1 Univers 25 mg 7-25 tablet by ity of tablet 00:00: mouth [place] 00 every 6 Medical (six) Branch hours as needed for Anxiety. hydrOXYzine 2023-0 Yes [id number] 25mg Take 1 Univers 25 mg 7-25 tablet by ity of tablet 00:00: mouth [place] 00 every 6 Medical (six) Branch hours as needed for Anxiety. hydrOXYzine 2023-0 Yes [id number] 25mg Take 1 Univers 25 mg 7-25 tablet by ity of tablet 00:00: mouth [place] 00 every 6 Medical (six) Branch hours as needed for Anxiety. hydrOXYzine 2023-0 Yes [id number] 25mg Take 1 Univers 25 mg 7-25 tablet by ity of tablet 00:00: mouth [place] 00 every 6 Medical (six) Branch hours as needed for Anxiety. hydrOXYzine 2023-0 Yes [id number] 25mg Take 1 Univers 25 mg 7-25 tablet by ity of tablet 00:00: mouth [place] 00 every 6 Medical (six) Branch hours as needed for Anxiety. hydrOXYzine 2023-0 Yes [id number] 25mg Take 1 Univers 25 mg 7-25 tablet by ity of tablet 00:00: mouth [place] 00 every 6 Medical (six) Branch hours as needed for Anxiety. hydrOXYzine 2023-0 Yes [id number] 25mg Take 1 Univers 25 mg 7-25 tablet by ity of tablet 00:00: mouth [place] 00 every 6 Medical (six) Branch hours as needed for Anxiety. hydrOXYzine 2023-0 Yes [id number] 25mg Take 1 Univers 25 mg 7-25 tablet by ity of tablet 00:00: mouth [place] 00 every 6 Medical (six) Branch hours as needed for Anxiety. hydrOXYzine 2023-0 Yes [id number] 25mg Take 1 Univers 25 mg 7-25 tablet by ity of tablet 00:00: mouth [place] 00 every 6 Medical (six) Branch hours as needed for Anxiety. hydrOXYzine 2023-0 Yes [id number] 25mg Take 1 Univers 25 mg 7-25 tablet by ity of tablet 00:00: mouth [place] 00 every 6 Medical (six) Branch hours as needed for Anxiety. hydrOXYzine 2023-0 Yes [id number] 25mg Take 1 Univers 25 mg 7-25 tablet by ity of tablet 00:00: mouth [place] 00 every 6 Medical (six) Branch hours as needed for Anxiety. hydrOXYzine 2023-0 Yes [id number] 25mg Take 1 Univers 25 mg 7-25 tablet by ity of tablet 00:00: mouth [place] 00 every 6 Medical (six) Branch hours as needed for Anxiety. hydrOXYzine 3-0 Yes [id number] 25mg Take 1 Univers 25 mg 7-25 tablet by ity of tablet 00:00: mouth [place] 00 every 6 Medical (six) Branch hours as needed for Anxiety. atomoxetine 2022-0 Yes [id number] 80mg Take 1 Univers 80 mg 7-19 capsule by ity of capsule 00:00: mouth in [place] 00 the Medical morning. Branch ARIPiprazol 2022-0 Yes [id number] 15mg Take 1 Un kayleen e 15 mg 7-19 tablet by ity of tablet 00:00: mouth in [place] 00 the Medical morning. Branch lamoTRIgine 2022-0 Yes [id number] 25mg Take 1 Univers 25 mg 7-19 tablet by ity of tablet 00:00: mouth in [place] 00 the Medical morning. Branch naltrexone 2022-0 Yes [id number] 50mg Take 1 Uni vers 50 mg 7-19 tablet by ity of tablet 00:00: mouth in [place] 00 the Medical morning. Branch atomoxetine 2022-0 Yes [id number] 80mg Take 1 Univers 80 mg 7-19 capsule by ity of capsule 00:00: mouth in [place] 00 the Medical morning. Branch ARIPiprazol 2022-0 Yes [id number] 15mg Take 1 Un kayleen e 15 mg 7-19 tablet by ity of tablet 00:00: mouth in [place] 00 the Medical morning. Branch lamoTRIgine 2022-0 Yes [id number] 25mg Take 1 Univers 25 mg 7-19 tablet by ity of tablet 00:00: mouth in [place] 00 the Medical morning. Branch naltrexone 3-0 Yes [id number] 50mg Take 1 Uni vers 50 mg 7-19 tablet by ity of tablet 00:00: mouth in [place] 00 the Medical morning. Branch atomoxetine 3-0 Yes [id number] 80mg Take 1 Univers 80 mg 7-19 capsule by ity of capsule 00:00: mouth in [place] 00 the Medical morning. Branch ARIPiprazol 3-0 Yes [id number] 15mg Take 1 Un kayleen e 15 mg 7-19 tablet by ity of tablet 00:00: mouth in [place] 00 the Medical morning. Branch lamoTRIgine 3-0 Yes [id number] 25mg Take 1 Univers 25 mg 7-19 tablet by ity of tablet 00:00: mouth in [place] 00 the Medical morning. Branch naltrexone 3-0 Yes [id number] 50mg Take 1 Uni vers 50 mg 7-19 tablet by ity of tablet 00:00: mouth in [place] 00 the Medical morning. Branch atomoxetine 3-0 Yes [id number] 80mg Take 1 Univers 80 mg 7-19 capsule by ity of capsule 00:00: mouth in [place] 00 the Medical morning. Branch ARIPiprazol 3-0 Yes [id number] 15mg Take 1 Un kayleen e 15 mg 7-19 tablet by ity of tablet 00:00: mouth in [place] 00 the Medical morning. Branch lamoTRIgine 2022-0 Yes [id number] 25mg Take 1 Univers 25 mg 7-19 tablet by ity of tablet 00:00: mouth in [place] 00 the Medical morning. Branch naltrexone 3-0 Yes [id number] 50mg Take 1 Uni vers 50 mg 7-19 tablet by ity of tablet 00:00: mouth in [place] 00 the Medical morning. Branch atomoxetine 2022-0 Yes [id number] 80mg Take 1 Univers 80 mg 7-19 capsule by ity of capsule 00:00: mouth in [place] 00 the Medical morning. Branch ARIPiprazol 3-0 Yes [id number] 15mg Take 1 Un kayleen e 15 mg 7-19 tablet by ity of tablet 00:00: mouth in [place] 00 the Medical morning. Branch lamoTRIgine 2022-0 Yes [id number] 25mg Take 1 Univers 25 mg 7-19 tablet by ity of tablet 00:00: mouth in [place] 00 the Medical morning. Branch naltrexone 3-0 Yes [id number] 50mg Take 1 Uni vers 50 mg 7-19 tablet by ity of tablet 00:00: mouth in [place] 00 the Medical morning. Branch atomoxetine 3-0 Yes [id number] 80mg Take 1 Univers 80 mg 7-19 capsule by ity of capsule 00:00: mouth in [place] 00 the Medical morning. Branch ARIPiprazol 3-0 Yes [id number] 15mg Take 1 Un kayleen e 15 mg 7-19 tablet by ity of tablet 00:00: mouth in [place] 00 the Medical morning. Branch lamoTRIgine 3-0 Yes [id number] 25mg Take 1 Univers 25 mg 7-19 tablet by ity of tablet 00:00: mouth in [place] 00 the Medical morning. Branch naltrexone 3-0 Yes [id number] 50mg Take 1 Uni vers 50 mg 7-19 tablet by ity of tablet 00:00: mouth in [place] the Medical morning. Branch atomoxetine 3-0 Yes [id number] 80mg Take 1 Univers 80 mg 7-19 capsule by ity of capsule 00:00: mouth in [place] 00 the Medical morning. Branch ARIPiprazol 2022-0 Yes [id number] 15mg Take 1 Un kayleen e 15 mg 7-19 tablet by ity of tablet 00:00: mouth in [place] the Medical morning. Branch lamoTRIgine 2022-0 Yes [id number] 25mg Take 1 Univers 25 mg 7-19 tablet by ity of tablet 00:00: mouth in [place] the Medical morning. Branch naltrexone 2022-0 Yes [id number] 50mg Take 1 Uni vers 50 mg 7-19 tablet by ity of tablet 00:00: mouth in [place] the Medical morning. Branch atomoxetine 2022-0 Yes [id number] 80mg Take 1 Univers 80 mg 7-19 capsule by ity of capsule 00:00: mouth in [place] the Medical morning. Branch ARIPiprazol 2022-0 Yes [id number] 15mg Take 1 Un kayleen e 15 mg 7-19 tablet by ity of tablet 00:00: mouth in [place] the Medical morning. Branch lamoTRIgine 2022-0 Yes [id number] 25mg Take 1 Univers 25 mg 7-19 tablet by ity of tablet 00:00: mouth in [place] the Medical morning. Branch naltrexone 3-0 Yes [id number] 50mg Take 1 Uni vers 50 mg 7-19 tablet by ity of tablet 00:00: mouth in [place] 00 the Medical morning. Branch atomoxetine 3-0 Yes [id number] 80mg Take 1 Univers 80 mg 7-19 capsule by ity of capsule 00:00: mouth in [place] 00 the Medical morning. Branch ARIPiprazol 3-0 Yes [id number] 15mg Take 1 Un kayleen e 15 mg 7-19 tablet by ity of tablet 00:00: mouth in [place] 00 the Medical morning. Branch lamoTRIgine 3-0 Yes [id number] 25mg Take 1 Univers 25 mg 7-19 tablet by ity of tablet 00:00: mouth in [place] the Medical morning. Branch naltrexone 2022-0 Yes [id number] 50mg Take 1 Uni vers 50 mg 7-19 tablet by ity of tablet 00:00: mouth in [place] the Medical morning. Branch atomoxetine 2022-0 Yes [id number] 80mg Take 1 Univers 80 mg 7-19 capsule by ity of capsule 00:00: mouth in [place] the Medical morning. Branch ARIPiprazol 2022-0 Yes [id number] 15mg Take 1 Un kayleen e 15 mg 7-19 tablet by ity of tablet 00:00: mouth in [place] the Medical morning. Branch lamoTRIgine 2022-0 Yes [id number] 25mg Take 1 Univers 25 mg 7-19 tablet by ity of tablet 00:00: mouth in [place] the Medical morning. Branch naltrexone 2022-0 Yes [id number] 50mg Take 1 Uni vers 50 mg 7-19 tablet by ity of tablet 00:00: mouth in [place] the Medical morning. Branch atomoxetine 2022-0 Yes [id number] 80mg Take 1 Univers 80 mg 7-19 capsule by ity of capsule 00:00: mouth in [place] the Medical morning. Branch ARIPiprazol 2022-0 Yes [id number] 15mg Take 1 Un kayleen e 15 mg 7-19 tablet by ity of tablet 00:00: mouth in [place] the Medical morning. Branch lamoTRIgine 2022-0 Yes [id number] 25mg Take 1 Univers 25 mg 7-19 tablet by ity of tablet 00:00: mouth in [place] the Medical morning. Branch naltrexone 2022-0 Yes [id number] 50mg Take 1 Uni vers 50 mg 7-19 tablet by ity of tablet 00:00: mouth in [place] the Medical morning. Branch atomoxetine 3-0 Yes [id number] 80mg Take 1 Univers 80 mg 7-19 capsule by ity of capsule 00:00: mouth in [place] 00 the Medical morning. Branch ARIPiprazol 3-0 Yes [id number] 15mg Take 1 Un kayleen e 15 mg 7-19 tablet by ity of tablet 00:00: mouth in [place] 00 the Medical morning. Branch lamoTRIgine 3-0 Yes [id number] 25mg Take 1 Univers 25 mg 7-19 tablet by ity of tablet 00:00: mouth in [place] 00 the Medical morning. Branch naltrexone 3-0 Yes [id number] 50mg Take 1 Uni vers 50 mg 7-19 tablet by ity of tablet 00:00: mouth in [place] 00 the Medical morning. Branch atomoxetine 2022-0 Yes [id number] 80mg Take 1 Univers 80 mg 7-19 capsule by ity of capsule 00:00: mouth in [place] 00 the Medical morning. Branch ARIPiprazol 2022-0 Yes [id number] 15mg Take 1 [facility] e 15 mg 7-19 tablet by [facility] tablet 00:00: mouth in [place] 00 the Medical morning. Branch lamoTRIgine 2022-0 Yes [id number] 25mg Take 1 [facility] 25 mg 7-19 tablet by [facility] tablet 00:00: mouth in [place] the Medical morning. Branch naltrexone 2022-0 Yes [id number] 50mg Take 1 [facility] vers 50 mg 7-19 tablet by [facility] tablet 00:00: mouth in [place] the Medical morning. Branch atomoxetine 2022-0 Yes [id number] 80mg Take 1 [facility] 80 mg 7-19 capsule by [facility] capsule 00:00: mouth in [place] the Medical morning. Branch ARIPiprazol 2022-0 Yes [id number] 15mg Take 1 [facility] 15 mg 7-19 tablet by [facility] tablet 00:00: mouth in [place] the Medical morning. Branch lamoTRIgine 2022-0 Yes [id number] 25mg Take 1 [facility] 25 mg 7-19 tablet by [facility] tablet 00:00: mouth in [place] the Medical morning. Branch naltrexone 2022-0 Yes [id number] 50mg Take 1 [facility] vers 50 mg 7-19 tablet by [facility] tablet 00:00: mouth in [place] 00 the Medical morning. Branch atomoxetine 2022-0 Yes [id number] 80mg Take 1 [facility] 80 mg 7-19 capsule by [facility] capsule 00:00: mouth in [place] 00 the Medical morning. Branch ARIPiprazol 3-0 Yes [id number] 15mg Take 1 [facility] 15 mg 7-19 tablet by [facility] tablet 00:00: mouth in [place] 00 the Medical morning. Branch lamoTRIgine 3-0 Yes [id number] 25mg Take 1 [facility] 25 mg 7-19 tablet by [facility] tablet 00:00: mouth in [place] 00 the Medical morning. Branch naltrexone 3-0 Yes [id number] 50mg Take 1 [facility] vers 50 mg 7-19 tablet by [facility] tablet 00:00: mouth in [place] 00 the Medical morning. Branch atomoxetine 3-0 Yes [id number] 80mg Take 1 [facility] 80 mg 7-19 capsule by [facility] capsule 00:00: mouth in [place] 00 the Medical morning. Branch ARIPiprazol 3-0 Yes [id number] 15mg Take 1 [facility] 15 mg 7-19 tablet by [facility] tablet 00:00: mouth in [place] 00 the Medical morning. Branch lamoTRIgine 3-0 Yes [id number] 25mg Take 1 [facility] 25 mg 7-19 tablet by [facility] tablet 00:00: mouth in [place] the Medical morning. Branch naltrexone 3-0 Yes [id number] 50mg Take 1 [facility] vers 50 mg 7-19 tablet by [facility] tablet 00:00: mouth in [place] the Medical morning. Branch atomoxetine 3-0 Yes [id number] 80mg Take 1 [facility] 80 mg 7-19 capsule by [facility] capsule 00:00: mouth in [place] the Medical morning. Branch ARIPiprazol 3-0 Yes [id number] 15mg Take 1 [facility] 15 mg 7-19 tablet by [facility] tablet 00:00: mouth in [place] the Medical morning. Branch lamoTRIgine 3-0 Yes [id number] 25mg Take 1 [facility] 25 mg 7-19 tablet by [facility] tablet 00:00: mouth in [place] the Medical morning. Branch naltrexone 3-0 Yes [id number] 50mg Take 1 [facility] vers 50 mg 7-19 tablet by [facility] tablet 00:00: mouth in [place] the Medical morning. Branch atomoxetine 3-0 Yes [id number] 80mg Take 1 [facility] 80 mg 7-19 capsule by [facility] capsule 00:00: mouth in [place] 00 the Medical morning. Branch ARIPiprazol 3-0 Yes [id number] 15mg Take 1 [facility] 15 mg 7-19 tablet by [facility] tablet 00:00: mouth in [place] 00 the Medical morning. Branch lamoTRIgine 3-0 Yes [id number] 25mg Take 1 [facility] 25 mg 7-19 tablet by [facility] tablet 00:00: mouth in [place] 00 the Medical morning. Branch naltrexone 3-0 Yes [id number] 50mg Take 1 [facility] vers 50 mg 7-19 tablet by [facility] tablet 00:00: mouth in [place] 00 the Medical morning. Branch atomoxetine 2022-0 Yes [id number] 80mg Take 1 [facility] 80 mg 7-19 capsule by [facility] capsule 00:00: mouth in [place] 00 the Medical morning. Branch ARIPiprazol 2022-0 Yes [id number] 15mg Take 1 [facility] 15 mg 7-19 tablet by [facility] tablet 00:00: mouth in [place] 00 the Medical morning. Branch lamoTRIgine 2022-0 Yes [id number] 25mg Take 1 [facility] 25 mg 7-19 tablet by [facility] tablet 00:00: mouth in [place] 00 the Medical morning. Branch naltrexone 2022-0 Yes [id number] 50mg Take 1 [facility] vers 50 mg 7-19 tablet by [facility] tablet 00:00: mouth in [place] 00 the Medical morning. Branch atomoxetine 2022-0 Yes [id number] 80mg Take 1 [facility] 80 mg 7-19 capsule by [facility] capsule 00:00: mouth in [place] 00 the Medical morning. Branch ARIPiprazol 2022-0 Yes [id number] 15mg Take 1 [facility] 15 mg 7-19 tablet by [facility] tablet 00:00: mouth in [place] 00 the Medical morning. Branch lamoTRIgine 2022-0 Yes [id number] 25mg Take 1 [facility] 25 mg 7-19 tablet by [facility] tablet 00:00: mouth in [place] 00 the Medical morning. Branch naltrexone 2022-0 Yes [id number] 50mg Take 1 [facility] vers 50 mg 7-19 tablet by [facility] tablet 00:00: mouth in [place] 00 the Medical morning. Branch atomoxetine 2022-0 3- No [id number] 80mg Take 1 [facility] 80 mg 7-19 10-17 capsule by [facility] capsule 00:00: 00:00 mouth in [place] 00 :00 the Medical morning. Branch ARIPiprazol 2022-0 3- No [id number] 15mg Take 1 [facility] nivers e 15 mg 7-19 10-17 tablet by [facility] tablet 00:00: 00:00 mouth in [place] 00 :00 the Medical morning. Branch lamoTRIgine 2022-0 2023- No [id number] 25mg Take 1 [facility] 25 mg 7-19 10-17 tablet by [facility] tablet 00:00: 00:00 mouth in [place] 00 :00 the Medical morning. Branch naltrexone 2022-2022- No [id number] 50mg Take 1 [facility] 50 mg 7-19 10-17 tablet by [facility] tablet 00:00: 00:00 mouth in [place] 00 :00 the Medical morning. Branch atomoxetine 2022-0 2022- No [id number] 80mg Take 1 [facility] 80 mg 7-19 10-17 capsule by [facility] capsule 00:00: 00:00 mouth in [place] 00 :00 the Medical morning. Branch ARIPiprazol 2022-2022- No [id number] 15mg Take 1 [facility] nivers e 15 mg 7-19 10-17 tablet by [facility] tablet 00:00: 00:00 mouth in [place] 00 :00 the Medical morning. Branch lamoTRIgine 2022-2022- No [id number] 25mg Take 1 [facility] 25 mg 7-19 10-17 tablet by [facility] tablet 00:00: 00:00 mouth in [place] 00 :00 the Medical morning. Branch naltrexone 2022-0 2022- No [id number] 50mg Take 1 [facility] 50 mg 7-19 10-17 tablet by [facility] tablet 00:00: 00:00 mouth in [place] 00 :00 the Medical morning. Branch atomoxetine 2022-2022- No [id number] 80mg Take 1 [facility] 80 mg 7-19 10-17 capsule by [facility] capsule 00:00: 00:00 mouth in [place] 00 :00 the Medical morning. Branch ARIPiprazol 2022-2022- No [id number] 15mg Take 1 [facility] nivers e 15 mg 7-19 10-17 tablet by [facility] tablet 00:00: 00:00 mouth in [place] 00 :00 the Medical morning. Branch lamoTRIgine 2022-0 2022- No [id number] 25mg Take 1 [facility] 25 mg 7-19 10-17 tablet by [facility] tablet 00:00: 00:00 mouth in [place] 00 :00 the Medical morning. Branch naltrexone 2022-0 2022- No [id number] 50mg Take 1 [facility] 50 mg 7-19 10-17 tablet by [facility] tablet 00:00: 00:00 mouth in [place] 00 :00 the Medical morning. Branch ARIPiprazol 2022-0 Yes [id number] 15mg Take 1 [facility] e 15 mg 5-01 tablet by [facility] tablet 00:00: mouth in [place] 00 the Medical morning. Branch lamoTRIgine 2022-0 Yes [id number] 25mg Take 1 [facility] 25 mg 5-01 tablet by [facility] tablet 00:00: mouth in [place] 00 the Medical morning. Branch naltrexone 2022-0 Yes [id number] 50mg Take 1 [facility] vers 50 mg 5-01 tablet by [facility] tablet 00:00: mouth in [place] 00 the Medical morning. Branch ARIPiprazol 2022-0 Yes [id number] 15mg Take 1 [facility] e 15 mg 5-01 tablet by [facility] tablet 00:00: mouth in [place] 00 the Medical morning. Branch lamoTRIgine 2022-0 Yes [id number] 25mg Take 1 [facility] 25 mg 5-01 tablet by [facility] tablet 00:00: mouth in [place] 00 the Medical morning. Branch naltrexone 2022-0 Yes [id number] 50mg Take 1 [facility] vers 50 mg 5-01 tablet by [facility] tablet 00:00: mouth in [place] 00 the Medical morning. Branch ARIPiprazol 2022-0 Yes [id number] 15mg Take 1 [facility] 15 mg 5-01 tablet by [facility] tablet 00:00: mouth in [place] 00 the Medical morning. Branch lamoTRIgine 2022-0 Yes [id number] 25mg Take 1 [facility] 25 mg 5-01 tablet by [facility] tablet 00:00: mouth in [place] 00 the Medical morning. Branch naltrexone 2022-0 Yes [id number] 50mg Take 1 [facility] vers 50 mg 5-01 tablet by [facility] tablet 00:00: mouth in [place] 00 the Medical morning. Branch ARIPiprazol 2022-0 Yes [id number] 15mg Take 1 [facility] e 15 mg 5-01 tablet by [facility] tablet 00:00: mouth in [place] 00 the Medical morning. Branch lamoTRIgine 2022-0 Yes [id number] 25mg Take 1 [facility] 25 mg 5-01 tablet by [facility] tablet 00:00: mouth in [place] 00 the Medical morning. Branch naltrexone 2022-0 Yes [id number] 50mg Take 1 [facility] vers 50 mg 5-01 tablet by [facility] tablet 00:00: mouth in [place] 00 the Medical morning. Branch ARIPiprazol 2022-0 Yes [id number] 15mg Take 1 [facility] 15 mg 5-01 tablet by [facility] tablet 00:00: mouth in [place] 00 the Medical morning. Branch lamoTRIgine 2022-0 Yes [id number] 25mg Take 1 [facility] 25 mg 5-01 tablet by [facility] tablet 00:00: mouth in [place] 00 the Medical morning. Branch naltrexone 2022-0 Yes [id number] 50mg Take 1 [facility] vers 50 mg 5-01 tablet by [facility] tablet 00:00: mouth in [place] 00 the Medical morning. Branch ARIPiprazol 2022-0 Yes [id number] 15mg Take 1 [facility] 15 mg 5-01 tablet by [facility] tablet 00:00: mouth in [place] 00 the Medical morning. Branch lamoTRIgine 2022-0 Yes [id number] 25mg Take 1 [facility] 25 mg 5-01 tablet by [facility] tablet 00:00: mouth in [place] 00 the Medical morning. Branch naltrexone 2022-0 Yes [id number] 50mg Take 1 [facility] vers 50 mg 5-01 tablet by [facility] tablet 00:00: mouth in [place] 00 the Medical morning. Branch ARIPiprazol 2022-0 Yes [id number] 15mg Take 1 [facility] e 15 mg 5-01 tablet by [facility] tablet 00:00: mouth in [place] 00 the Medical morning. Branch lamoTRIgine 2022-0 Yes [id number] 25mg Take 1 [facility] 25 mg 5-01 tablet by [facility] tablet 00:00: mouth in [place] 00 the Medical morning. Branch naltrexone 2022-0 Yes [id number] 50mg Take 1 [facility] vers 50 mg 5-01 tablet by [facility] tablet 00:00: mouth in [place] 00 the Medical morning. Branch ARIPiprazol 2022-0 Yes [id number] 15mg Take 1 [facility] 15 mg 5-01 tablet by [facility] tablet 00:00: mouth in [place] 00 the Medical morning. Branch lamoTRIgine 2022-0 Yes [id number] 25mg Take 1 [facility] 25 mg 5-01 tablet by [facility] tablet 00:00: mouth in [place] 00 the Medical morning. Branch naltrexone 2022-0 Yes [id number] 50mg Take 1 [facility] vers 50 mg 5-01 tablet by [facility] tablet 00:00: mouth in [place] 00 the Medical morning. Branch ARIPiprazol 2022-0 Yes [id number] 15mg Take 1 [facility] 15 mg 5-01 tablet by [facility] tablet 00:00: mouth in [place] 00 the Medical morning. Branch lamoTRIgine 2022-0 Yes [id number] 25mg Take 1 [facility] 25 mg 5-01 tablet by [facility] tablet 00:00: mouth in [place] 00 the Medical morning. Branch naltrexone 2022-0 Yes [id number] 50mg Take 1 [facility] vers 50 mg 5-01 tablet by [facility] tablet 00:00: mouth in [place] 00 the Medical morning. Branch ARIPiprazol 2022-0 Yes [id number] 15mg Take 1 [facility] 15 mg 5-01 tablet by [facility] tablet 00:00: mouth in [place] 00 the Medical morning. Branch lamoTRIgine 2022-0 Yes [id number] 25mg Take 1 [facility] 25 mg 5-01 tablet by [facility] of tablet 00:00: mouth in [place] the Medical morning. Branch naltrexone 2022-0 Yes [id number] 50mg Take 1 [facility] vers 50 mg 5-01 tablet by [facility] tablet 00:00: mouth in [place] the Medical morning. Branch ARIPiprazol 2022-0 Yes [id number] 15mg Take 1 [facility] 15 mg 5-01 tablet by [facility] tablet 00:00: mouth in [place] 00 the Medical morning. Branch lamoTRIgine 2022-0 Yes [id number] 25mg Take 1 [facility] 25 mg 5-01 tablet by [facility] tablet 00:00: mouth in [place] the Medical morning. Branch naltrexone 2022-0 Yes [id number] 50mg Take 1 [facility] vers 50 mg 5-01 tablet by [facility] tablet 00:00: mouth in [place] 00 the Medical morning. Branch ARIPiprazol 2022-0 Yes [id number] 15mg Take 1 [facility] e 15 mg 5-01 tablet by [facility] tablet 00:00: mouth in [place] 00 the Medical morning. Branch lamoTRIgine 2022-0 Yes [id number] 25mg Take 1 [facility] 25 mg 5-01 tablet by [facility] tablet 00:00: mouth in [place] 00 the Medical morning. Branch naltrexone 2022-0 Yes [id number] 50mg Take 1 [facility] vers 50 mg 5-01 tablet by [facility] tablet 00:00: mouth in [place] 00 the Medical morning. Branch ARIPiprazol 2022-0 Yes [id number] 15mg Take 1 [facility] e 15 mg 5-01 tablet by [facility] tablet 00:00: mouth in [place] 00 the Medical morning. Branch lamoTRIgine 2022-0 Yes [id number] 25mg Take 1 [facility] 25 mg 5-01 tablet by [facility] tablet 00:00: mouth in [place] 00 the Medical morning. Branch naltrexone 2022-0 Yes [id number] 50mg Take 1 [facility] vers 50 mg 5-01 tablet by [facility] of tablet 00:00: mouth in [place] 00 the Medical morning. Branch ARIPiprazol 2022-0 Yes [id number] 15mg Take 1 [facility] e 15 mg 5-01 tablet by [facility] tablet 00:00: mouth in [place] 00 the Medical morning. Branch lamoTRIgine 2022-0 Yes [id number] 25mg Take 1 [facility] 25 mg 5-01 tablet by [facility] of tablet 00:00: mouth in [place] the Medical morning. Branch naltrexone 2022-0 Yes [id number] 50mg Take 1 [facility] vers 50 mg 5-01 tablet by [facility] tablet 00:00: mouth in [place] the Medical morning. Branch ARIPiprazol 2022-0 Yes [id number] 15mg Take 1 [facility] e 15 mg 5-01 tablet by [facility] tablet 00:00: mouth in [place] 00 the Medical morning. Branch lamoTRIgine 2022-0 Yes [id number] 25mg Take 1 [facility] 25 mg 5-01 tablet by [facility] of tablet 00:00: mouth in [place] 00 the Medical morning. Branch naltrexone 2022-0 Yes [id number] 50mg Take 1 [facility] vers 50 mg 5-01 tablet by [facility] tablet 00:00: mouth in [place] 00 the Medical morning. Branch ARIPiprazol 2022-0 Yes [id number] 15mg Take 1 [facility] e 15 mg 5-01 tablet by [facility] tablet 00:00: mouth in [place] 00 the Medical morning. Branch lamoTRIgine 2022-0 Yes [id number] 25mg Take 1 [facility] 25 mg 5-01 tablet by [facility] tablet 00:00: mouth in [place] 00 the Medical morning. Branch naltrexone 2022-0 Yes [id number] 50mg Take 1 [facility] vers 50 mg 5-01 tablet by [facility] tablet 00:00: mouth in [place] 00 the Medical morning. Branch ARIPiprazol 2022-0 Yes [id number] 15mg Take 1 [facility] e 15 mg 5-01 tablet by [facility] tablet 00:00: mouth in [place] 00 the Medical morning. Branch lamoTRIgine 2022-0 Yes [id number] 25mg Take 1 [facility] 25 mg 5-01 tablet by [facility] tablet 00:00: mouth in [place] 00 the Medical morning. Branch naltrexone 2022-0 Yes [id number] 50mg Take 1 [facility] vers 50 mg 5-01 tablet by [facility] tablet 00:00: mouth in [place] 00 the Medical morning. Branch ARIPiprazol 2022-0 Yes [id number] 15mg Take 1 [facility] e 15 mg 5-01 tablet by [facility] tablet 00:00: mouth in [place] 00 the Medical morning. Branch lamoTRIgine 2022-0 Yes [id number] 25mg Take 1 [facility] 25 mg 5-01 tablet by [facility] tablet 00:00: mouth in [place] 00 the Medical morning. Branch naltrexone 2022-0 Yes [id number] 50mg Take 1 [facility] vers 50 mg 5-01 tablet by [facility] of tablet 00:00: mouth in [place] the Medical morning. Branch ARIPiprazol 2022-0 Yes [id number] 15mg Take 1 [facility] e 15 mg 5-01 tablet by [facility] tablet 00:00: mouth in [place] 00 the Medical morning. Branch lamoTRIgine 2022-0 Yes [id number] 25mg Take 1 [facility] 25 mg 5-01 tablet by [facility] of tablet 00:00: mouth in [place] 00 the Medical morning. Branch naltrexone 2022-0 Yes [id number] 50mg Take 1 [facility] vers 50 mg 5-01 tablet by [facility] of tablet 00:00: mouth in [place] 00 the Medical morning. Branch ARIPiprazol 2022-0 Yes [id number] 15mg Take 1 [facility] e 15 mg 5-01 tablet by [facility] tablet 00:00: mouth in [place] 00 the Medical morning. Branch lamoTRIgine 2022-0 Yes [id number] 25mg Take 1 [facility] 25 mg 5-01 tablet by [facility] tablet 00:00: mouth in [place] 00 the Medical morning. Branch naltrexone 2022-0 Yes [id number] 50mg Take 1 [facility] vers 50 mg 5-01 tablet by [facility] tablet 00:00: mouth in [place] 00 the Medical morning. Branch ARIPiprazol 2022-0 Yes [id number] 15mg Take 1 [facility] e 15 mg 5-01 tablet by [facility] tablet 00:00: mouth in [place] 00 the Medical morning. Branch lamoTRIgine 2022-0 Yes [id number] 25mg Take 1 [facility] 25 mg 5-01 tablet by [facility] of tablet 00:00: mouth in [place] 00 the Medical morning. Branch naltrexone 2022-0 Yes [id number] 50mg Take 1 [facility] vers 50 mg 5-01 tablet by [facility] of tablet 00:00: mouth in [place] 00 the Medical morning. Branch ARIPiprazol 2022-0 Yes [id number] 15mg Take 1 [facility] e 15 mg 5-01 tablet by [facility] tablet 00:00: mouth in [place] 00 the Medical morning. Branch lamoTRIgine 2022-0 Yes [id number] 25mg Take 1 [facility] 25 mg 5-01 tablet by [facility] of tablet 00:00: mouth in [place] 00 the Medical morning. Branch naltrexone 2022-0 Yes [id number] 50mg Take 1 [facility] vers 50 mg 5-01 tablet by [facility] of tablet 00:00: mouth in [place] 00 the Medical morning. Branch ARIPiprazol 2022-0 Yes [id number] 15mg Take 1 [facility] e 15 mg 5-01 tablet by [facility] tablet 00:00: mouth in [place] 00 the Medical morning. Branch lamoTRIgine 2022-0 Yes [id number] 25mg Take 1 [facility] 25 mg 5-01 tablet by [facility] of tablet 00:00: mouth in [place] 00 the Medical morning. Branch naltrexone 2022-0 Yes [id number] 50mg Take 1 [facility] vers 50 mg 5-01 tablet by [facility] of tablet 00:00: mouth in [place] 00 the Medical morning. Branch atomoxetine 2022-0 2022- No [id number] 80mg Take 1 [facility] 80 mg 5-01 - capsule by [facility] capsule 00:00: 04:59 mouth in [place] 00 :00 the Medical morning Branch for 90 days. atomoxetine 2022-0 2022- No [id number] 80mg Take 1 [facility] 80 mg 5-01 - capsule by [facility] capsule 00:00: 04:59 mouth in [place] 00 :00 the Medical morning Branch for 90 days. atomoxetine 3-0 2023- No [id number] 80mg Take 1 [facility] 80 mg 5-07 09-31 capsule by [facility] of capsule 00:00: 04:59 mouth in [place] 00 :00 the Medical morning Branch for 90 days. atomoxetine 3-0 3- No [id number] 80mg Take 1 [facility] 80 mg 5-07 09-31 capsule by [facility] of capsule 00:00: 04:59 mouth in [place] 00 :00 the Medical morning Branch for 90 days. atomoxetine 2022-0 2023- No [id number] 80mg Take 1 [facility] 80 mg 5-07 09-31 capsule by [facility] of capsule 00:00: 04:59 mouth in [place] 00 :00 the Medical morning Branch for 90 days. atomoxetine 2022-0 3- No [id number] 80mg Take 1 [facility] 80 mg 5-07 09-31 capsule by [facility] of capsule 00:00: 04:59 mouth in [place] 00 :00 the [facility] morning Branch for 90 days. atomoxetine 2022-0 3- No [id number] 80mg Take 1 [facility] 80 mg 5-07 09-31 capsule by [facility] of capsule 00:00: 04:59 mouth in [place] 00 :00 the Medical morning Branch for 90 days. atomoxetine 3-0 3- No [id number] 80mg Take 1 [facility] 80 mg 5-07 09-31 capsule by [facility] of capsule 00:00: 04:59 mouth in [place] 00 :00 the Medical morning Branch for 90 days. atomoxetine 3-0 3- No [id number] 80mg Take 1 [facility] 80 mg 5-07 09-31 capsule by [facility] of capsule 00:00: 04:59 mouth in [place] 00 :00 the Medical morning Branch for 90 days. atomoxetine 2023-0 2023- No [id number] 80mg Take 1 [facility] 80 mg 5-01 07-31 capsule by [facility] of capsule 00:00: 04:59 mouth in [place] 00 :00 the Medical morning Branch for 90 days. atomoxetine 2023-0 2023- No [id number] 80mg Take 1 [facility] 80 mg 5-01 -31 capsule by [facility] of capsule 00:00: 04:59 mouth in [place] 00 :00 the Medical morning Branch for 90 days. atomoxetine 2023-0 2023- No [id number] 80mg Take 1 [facility] 80 mg 5-07 09-31 capsule by [facility] of capsule 00:00: 04:59 mouth in [place] 00 :00 the Medical morning Branch for 90 days. atomoxetine 2022-0 3- No [id number] 80mg Take 1 [facility] 80 mg 5-07 09-31 capsule by [facility] of capsule 00:00: 04:59 mouth in [place] 00 :00 the Medical morning Branch for 90 days. atomoxetine 2022-0 3- No [id number] 80mg Take 1 [facility] 80 mg 5-07 09- capsule by [facility] of capsule 00:00: 04:59 mouth in [place] 00 :00 the Medical morning Branch for 90 days. atomoxetine 2022-0 3- No [id number] 80mg Take 1 [facility] 80 mg 5-07 09-31 capsule by [facility] of capsule 00:00: 04:59 mouth in [place] 00 :00 the Medical morning Branch for 90 days. atomoxetine 2022-0 2022- No [id number] 80mg Take 1 [facility] 80 mg 5-07 09-31 capsule by [facility] of capsule 00:00: 04:59 mouth in [place] 00 :00 the [facility] morning Branch for 90 days. atomoxetine 2022-0 3- No [id number] 80mg Take 1 [facility] 80 mg 5-07 09- capsule by [facility] of capsule 00:00: 04:59 mouth in [place] 00 :00 the [facility] morning Branch for 90 days. atomoxetine 2022-0 3- No [id number] 80mg Take 1 [facility] 80 mg 5-07 09-31 capsule by [facility]y of capsule 00:00: 04:59 mouth in [place] 00 :00 the [facility] morning Branch for 90 days. atomoxetine 2022-0 3- No [id number] 80mg Take 1 [facility] 80 mg 5-07 09-31 capsule by [facility] of capsule 00:00: 04:59 mouth in [place] 00 :00 the Medical morning Branch for 90 days. atomoxetine 2023-0 2023- No [id number] 80mg Take 1 [facility] 80 mg 5-01 -31 capsule by [facility] of capsule 00:00: 04:59 mouth in [place] 00 :00 the Medical morning Branch for 90 days. atomoxetine 2022-0 3- No [id number] 80mg Take 1 [facility] 80 mg 5-01 -31 capsule by [facility] of capsule 00:00: 04:59 mouth in [place] 00 :00 the Medical morning Branch for 90 days. atomoxetine 2022-0 3- No [id number] 80mg Take 1 [facility] 80 mg 5-01-30 capsule by [facility] of capsule 00:00: 04:59 mouth in [place] 00 :00 the Medical morning Branch for 90 days. atomoxetine 2022-0 3- No [id number] 80mg Take 1 [facility] 80 mg 5-01-30 capsule by [facility] of capsule 00:00: 04:59 mouth in [place] 00 :00 the Medical morning Branch for 90 days. atomoxetine 2022-0 3- No [id number] 80mg Take 1 [facility] 80 mg 5-07 09- capsule by [facility] of capsule 00:00: 00:00 mouth in [place] 00 :00 the Medical morning Branch for 90 days. ARIPiprazol 2022-0 3- No [id number] 15mg Take 1 [facility] nivers e 15 mg 5-01-18 tablet by [facility] of tablet 00:00: 00:00 mouth in [place] 00 :00 the Medical morning. Branch lamoTRIgine 2022-0 3- No [id number] 25mg Take 1 [facility] 25 mg 5-07 09- tablet by [facility] of tablet 00:00: 00:00 mouth in [place] 00 :00 the Medical morning. Branch naltrexone 2022-0 3- No [id number] 50mg Take 1 [facility] kayleen 50 mg 5-07 09- tablet by [facility] of tablet 00:00: 00:00 mouth in [place] 00 :00 the Medical morning. Branch atomoxetine 2022-0 3- No [id number] 80mg Take 1 [facility] 80 mg 5-01-18 capsule by [facility] of capsule 00:00: 00:00 mouth in [place] 00 :00 the Medical morning Branch for 90 days. ARIPiprazol 2022-0 3- No [id number] 15mg Take 1 [facility] nivers e 15 mg 5-07 09-19 tablet by [facility] of tablet 00:00: 00:00 mouth in [place] 00 :00 the Medical morning. Branch lamoTRIgine 2022-0 3- No [id number] 25mg Take 1 [facility] 25 mg 5-07 09-19 tablet by [facility] of tablet 00:00: 00:00 mouth in [place] 00 :00 the Medical morning. Branch naltrexone 2022- No [id number] 50mg Take 1 [facility] kayleen 50 mg -01-18 tablet by [facility] of tablet 00:00: 00:00 mouth in [place] 00 :00 the Medical morning. Branch atomoxetine 2022- No [id number] 80mg Take 1 [facility] 80 mg 5-01-18 capsule by ity of capsule 00:00: 00:00 mouth in [place] 00 :00 the Medical morning Branch for 90 days. ARIPiprazol 2022- No [id number] 15mg Take 1 [facility] nivers e 15 mg -01-18 tablet by [facility] of tablet 00:00: 00:00 mouth in [place] 00 :00 the Medical morning. Branch lamoTRIgine 2022-2022- No [id number] 25mg Take 1 [facility] 25 mg -01-18 tablet by ity of tablet 00:00: 00:00 mouth in [place] 00 :00 the Medical morning. Branch naltrexone 2022-2022- No [id number] 50mg Take 1 [facility] kayleen 50 mg 10-31 tablet by [facility] of tablet 00:00: 00:00 mouth in [place] 00 :00 the Medical morning. Branch atomoxetine 2022-2022- No [id number] 80mg Take 1 [facility] 80 mg 10-31 capsule by [facility] of capsule 00:00: 00:00 mouth in [place] 00 :00 the Medical morning Branch for 90 days. ARIPiprazol 2022-2022- No [id number] 15mg Take 1 [facility] nivers e 15 mg 10-31 tablet by it[facility] of tablet 00:00: 00:00 mouth in [place] 00 :00 the Medical morning. Branch lamoTRIgine 2022-2022- No [id number] 25mg Take 1 [facility] 25 mg -07 09- tablet by ity of tablet 00:00: 00:00 mouth in [place] 00 :00 the Medical morning. Branch naltrexone 2022-0 2022- No [id number] 50mg Take 1 [facility] kayleen 50 mg 5-01-18 tablet by [facility]y of tablet 00:00: 00:00 mouth in [place] 00 :00 the Medical morning. Branch testosteron [...] 1 [place] injection , Medical SUBCUTANEO Branch , 49 DAYS. SAFE FOR SUBCUTANEO US USE testosteron 0 Yes INJECT 0.3 [facility] e cypionate 4-27 ML (60MG) ity of 200 mg/mL 00:00: EVERY 1 [place] injection , [facility] SUBCUTANEO Branch , 49 DAYS. SAFE FOR SUBCUTANEO US USE testosteron 0 Yes INJECT 0.3 [facility] e cypionate 4-27 ML (60MG) ity of 200 mg/mL 00:00: EVERY 1 [place] injection , Medical SUBCUTANEO Branch , 49 DAYS. SAFE FOR SUBCUTANEO US USE testosteron 0 Yes INJECT 0.3 [facility] e cypionate 4-27 ML (60MG) ity of 200 mg/mL 00:00: EVERY 1 [place] injection , [facility] SUBCUTANEO Branch US, 49 DAYS. SAFE FOR [...] mg/mL 00:00: EVERY 1 [place] [facility]. SAFE FOR SUBCUTANEO [...] SAFE FOR SUBCUTANEO US USE atomoxetine Yes [id number] 80mg Take 1 [facility] 80 mg 4-18 capsule by ity of capsule 00:00: mouth in [place] 00 the Medical morning. Branch atomoxetine 3-0 Yes [id number] 80mg Take 1 [facility] 80 [facility] 4-18 capsule by [facility] 00:00: mouth in [place] 00 the Medical morning. Branch atomoxetine 2022-0 3- No [id number] 80mg Take 1 [facility] 80 mg 4-18 05-01 capsule by [facility] capsule 00:00: 00:00 mouth in [place] 00 :00 the Medical morning. Branch atomoxetine 3-0 3- No [id number] 80mg Take 1 [facility] 80 mg 4-18 05-01 capsule by [facility] capsule 00:00: 00:00 mouth in [place] 00 :00 the Medical morning. Branch atomoxetine 3-0 3- No [id number] 80mg Take 1 [facility] 80 mg 4-18 05-01 capsule by [facility] capsule 00:00: 00:00 mouth in [place] 00 :00 the Medical morning. Branch atomoxetine 2022-0 3- No [id number] 80mg Take 1 [facility] 80 mg 4-18 05-01 capsule by [facility] capsule 00:00: 00:00 mouth in [place] 00 :00 the Medical morning. Branch atomoxetine 2022-0 3- No [id number] 80mg Take 1 [facility] 80 mg 4-18 05-01 capsule by [facility] capsule 00:00: 00:00 mouth in [place] 00 :00 the Medical morning. Branch atomoxetine 3-0 3- No [id number] 80mg Take 1 [facility] 80 mg 4-18 05-01 capsule by [facility] capsule 00:00: 00:00 mouth in [place] 00 :00 the Medical morning. Branch atomoxetine 3-0 3- No [id number] 80mg Take 1 [facility] 80 mg 4-18 05-01 capsule by [facility] capsule 00:00: 00:00 mouth in [place] 00 :00 the Medical morning. Branch atomoxetine 2023-0 3- No [id number] 80mg Take 1 [facility] 80 mg 4-18 05-01 capsule by [facility] capsule 00:00: 00:00 mouth in [place] 00 :00 the Medical morning. Branch atomoxetine 3-0 3- No [id number] 80mg Take 1 [facility] 80 mg 4-18 05-01 capsule by [facility] capsule 00:00: 00:00 mouth in [place] 00 :00 the Medical morning. Branch atomoxetine 3-0 3- No [id number] 80mg Take 1 [facility] 80 mg 4-18 05-01 capsule by [facility] capsule 00:00: 00:00 mouth in [place] 00 :00 the Medical morning. Branch atomoxetine 3-0 3- No [id number] 80mg Take 1 [facility] 80 mg 4-18 05-01 capsule by [facility] capsule 00:00: 00:00 mouth in [place] 00 :00 the Medical morning. Branch ARIPiprazol 2022-0 Yes [id number] 15mg Take 1 [facility] e 15 mg 2-20 tablet by [facility] tablet 00:00: mouth in [place] 00 the Medical morning. Branch lamoTRIgine 2022-0 Yes [id number] 25mg Take 1 [facility] 25 mg 2-20 tablet by [facility] tablet 00:00: mouth in [place] 00 the Medical morning. Branch ARIPiprazol 2022-0 Yes [id number] 15mg Take 1 [facility] e 15 mg 2-20 tablet by [facility] tablet 00:00: mouth in [place] 00 the Medical morning. Branch lamoTRIgine 2022-0 Yes [id number] 25mg Take 1 [facility] 25 mg 2-20 tablet by [facility] tablet 00:00: mouth in [place] 00 the Medical morning. Branch ARIPiprazol 2022-0 Yes [id number] 15mg Take 1 [facility] 15 mg 2-20 tablet by [facility] tablet 00:00: mouth in [place] 00 the Medical morning. Branch lamoTRIgine 2022-0 Yes [id number] 25mg Take 1 [facility] 25 mg 2-20 tablet by [facility] tablet 00:00: mouth in [place] 00 the Medical morning. Branch ARIPiprazol 2022-0 Yes [id number] 15mg Take 1 [facility] 15 mg 2-20 tablet by [facility] tablet 00:00: mouth in [place] 00 the Medical morning. Branch lamoTRIgine 3-0 Yes [id number] 25mg Take 1 [facility] 25 mg 2-20 tablet by [facility] tablet 00:00: mouth in [place] 00 the Medical morning. Branch ARIPiprazol 3-0 Yes [id number] 15mg Take 1 [facility] e 15 mg 2-20 tablet by [facility] tablet 00:00: mouth in [place] 00 the Medical morning. Branch lamoTRIgine 3-0 Yes [id number] 25mg Take 1 [facility] 25 mg 2-20 tablet by [facility] tablet 00:00: mouth in [place] 00 the Medical morning. Branch ARIPiprazol 3-0 Yes [id number] 15mg Take 1 [facility] e 15 mg 2-20 tablet by [facility] tablet 00:00: mouth in [place] 00 the Medical morning. Branch lamoTRIgine 3-0 Yes [id number] 25mg Take 1 [facility] 25 mg 2-20 tablet by [facility] tablet 00:00: mouth in [place] 00 the Medical morning. Branch ARIPiprazol 3-0 Yes [id number] 15mg Take 1 [facility] e 15 mg 2-20 tablet by [facility] tablet 00:00: mouth in [place] 00 the Medical morning. Branch lamoTRIgine 3-0 Yes [id number] 25mg Take 1 [facility] 25 mg 2-20 tablet by [facility] tablet 00:00: mouth in [place] 00 the Medical morning. Branch ARIPiprazol 3-0 Yes [id number] 15mg Take 1 [facility] e 15 mg 2-20 tablet by [facility] tablet 00:00: mouth in [place] 00 the Medical morning. Branch lamoTRIgine 3-0 Yes [id number] 25mg Take 1 [facility] 25 mg 2-20 tablet by [facility] tablet 00:00: mouth in [place] 00 the Medical morning. Branch ARIPiprazol 3-0 Yes [id number] 15mg Take 1 [facility] e 15 mg 2-20 tablet by [facility] tablet 00:00: mouth in [place] 00 the Medical morning. Branch lamoTRIgine 3-0 Yes [id number] 25mg Take 1 [facility] 25 mg 2-20 tablet by [facility] tablet 00:00: mouth in [place] 00 the Medical morning. Branch ARIPiprazol 3-0 Yes [id number] 15mg Take 1 [facility] e 15 mg 2-20 tablet by [facility] tablet 00:00: mouth in [place] 00 the Medical morning. Branch lamoTRIgine 3-0 Yes [id number] 25mg Take 1 [facility] 25 mg 2-20 tablet by [facility] tablet 00:00: mouth in [place] 00 the Medical morning. Branch ARIPiprazol 3-0 Yes [id number] 15mg Take 1 [facility] e 15 mg 2-20 tablet by [facility] tablet 00:00: mouth in [place] 00 the Medical morning. Branch lamoTRIgine 3-0 Yes [id number] 25mg Take 1 [facility] 25 mg 2-20 tablet by [facility] tablet 00:00: mouth in [place] 00 the Medical morning. Branch ARIPiprazol 3-0 Yes [id number] 15mg Take 1 [facility] e 15 mg 2-20 tablet by [facility] tablet 00:00: mouth in [place] 00 the Medical morning. Branch lamoTRIgine 3-0 Yes [id number] 25mg Take 1 [facility] 25 mg 2-20 tablet by [facility] tablet 00:00: mouth in [place] 00 the Medical morning. Branch ARIPiprazol 3-0 Yes [id number] 15mg Take 1 [facility] e 15 mg 2-20 tablet by [facility] tablet 00:00: mouth in [place] 00 the Medical morning. Branch lamoTRIgine 3-0 Yes [id number] 25mg Take 1 [facility] 25 mg 2-20 tablet by [facility] tablet 00:00: mouth in [place] 00 the Medical morning. Branch ARIPiprazol 3-0 Yes [id number] 15mg Take 1 [facility] e 15 mg 2-20 tablet by [facility] tablet 00:00: mouth in [place] 00 the Medical morning. Branch lamoTRIgine 3-0 Yes [id number] 25mg Take 1 [facility] 25 mg 2-20 tablet by [facility] tablet 00:00: mouth in [place] 00 the Medical morning. Branch ARIPiprazol 3-0 Yes [id number] 15mg Take 1 [facility] e 15 mg 2-20 tablet by [facility] tablet 00:00: mouth in [place] 00 the Medical morning. Branch lamoTRIgine 3-0 Yes [id number] 25mg Take 1 [facility] 25 mg 2-20 tablet by [facility] tablet 00:00: mouth in [place] 00 the Medical morning. Branch naltrexone 3-0 3- No [id number] 50mg Take 1 [facility] 50 mg 2-20 05-22 tablet by [facility] tablet 00:00: 04:59 mouth in [place] 00 :00 the Medical morning Branch for 90 days. naltrexone 3-0 3- No [id number] 50mg Take 1 [facility] 50 mg 2-20 05-22 tablet by [facility] tablet 00:00: 04:59 mouth in [place] 00 :00 the Medical morning Branch for 90 days. naltrexone 202-0 3- No [id number] 50mg Take 1 [facility] 50 mg 2-20 05-22 tablet by [facility] tablet 00:00: 04:59 mouth in [place] 00 :00 the Medical morning Branch for 90 days. naltrexone 202-0 2022- No [id number] 50mg Take 1 [facility] 50 mg 2-20 05-22 tablet by [facility] tablet 00:00: 04:59 mouth in [place] 00 :00 the [facility] morning Branch for 90 days. naltrexone 2022-0 2022- No [id number] 50mg Take 1 [facility] 50 mg 2-20 05-22 tablet by [facility] of tablet 00:00: 04:59 mouth in [place] 00 :00 the [facility] morning Branch for 90 days. naltrexone 2022-0 2022- No [id number] 50mg Take 1 [facility] 50 mg 2-20 05-22 tablet by [facility] of tablet 00:00: 04:59 mouth in [place] 00 :00 the [facility] morning Branch for 90 days. naltrexone 2022-0 2022- No [id number] 50mg Take 1 [facility] 50 mg 2-20 05-22 tablet by [facility] of tablet 00:00: 04:59 mouth in [place] 00 :00 the [facility] morning Branch for 90 days. naltrexone 2022-0 3- No [id number] 50mg Take 1 [facility] 50 mg 2-20 05-22 tablet by [facility] of tablet 00:00: 04:59 mouth in [place] 00 :00 the [facility] morning Branch for 90 days. naltrexone 2022-0 3- No [id number] 50mg Take 1 [facility] 50 mg 2-20 05-22 tablet by [facility] of tablet 00:00: 04:59 mouth in [place] 00 :00 the [facility] morning Branch for 90 days. naltrexone 2022-0 3- No [id number] 50mg Take 1 [facility] 50 mg 2-20 05-22 tablet by [facility] of tablet 00:00: 04:59 mouth in [place] 00 :00 the [facility] morning Branch for 90 days. naltrexone 2023-0 3- No [id number] 50mg Take 1 [facility] 50 mg 2-20 05-22 tablet by [facility] of tablet 00:00: 04:59 mouth in [place] 00 :00 the [facility] morning Branch for 90 days. naltrexone 2023-0 2023- No [id number] 50mg Take 1 [facility] 50 mg 2-20 05-22 tablet by [facility] of tablet 00:00: 04:59 mouth in [place] 00 :00 the Medical morning Branch for 90 days. naltrexone 2022-0 2022- No [id number] 50mg Take 1 [facility] 50 mg 2-20 05-22 tablet by [facility] of tablet 00:00: 04:59 mouth in [place] 00 :00 the Medical morning Branch for 90 days. naltrexone 2022-0 2022- No [id number] 50mg Take 1 [facility] 50 mg 2-20 05-22 tablet by [facility] of tablet 00:00: 04:59 mouth in [place] 00 :00 the Medical morning Branch for 90 days. naltrexone 2022-0 2022- No [id number] 50mg Take 1 [facility] 50 mg 2-20 05-22 tablet by [facility] of tablet 00:00: 04:59 mouth in [place] 00 :00 the Medical morning Branch for 90 days. ARIPiprazol 2022-2022- No [id number] 15mg Take 1 [facility] e 15 mg 2-20 05-01 tablet by [facility] of tablet 00:00: 00:00 mouth in [place] 00 :00 the Medical morning. Branch lamoTRIgine 2022-0 2022- No [id number] 25mg Take 1 [facility] 25 mg 2-20 05-01 tablet by [facility] of tablet 00:00: 00:00 mouth in [place] 00 :00 the Medical morning. Branch naltrexone 2022-0 2022- No [id number] 50mg Take 1 [facility] 50 mg 2-20 05-01 tablet by [facility] of tablet 00:00: 00:00 mouth in [place] 00 :00 the Medical morning Branch for 90 days. ARIPiprazol 2022-0 2022- No [id number] 15mg Take 1 [facility] e 15 mg 2-20 05-01 tablet by [facility] of tablet 00:00: 00:00 mouth in [place] 00 :00 the Medical morning. Branch lamoTRIgine 2022-0 2022- No [id number] 25mg Take 1 [facility] 25 mg 2-20 05-01 tablet by [facility] of tablet 00:00: 00:00 mouth in [place] 00 :00 the Medical morning. Branch naltrexone 2022-0 2022- No [id number] 50mg Take 1 [facility] 50 mg 2-20 05-01 tablet by [facility] of tablet 00:00: 00:00 mouth in [place] 00 :00 the Medical morning Branch for 90 days. ARIPiprazol 2022-2022- No [id number] 15mg Take 1 [facility] e 15 mg 2-20 05-01 tablet by [facility] of tablet 00:00: 00:00 mouth in [place] 00 :00 the Medical morning. Branch lamoTRIgine 2022-2022- No [id number] 25mg Take 1 [facility] 25 mg 2-20 05-01 tablet by [facility] of tablet 00:00: 00:00 mouth in [place] 00 :00 the Medical morning. Branch naltrexone 2022-2022- No [id number] 50mg Take 1 [facility] 50 mg 2-20 05-01 tablet by [facility] of tablet 00:00: 00:00 mouth in [place] 00 :00 the Medical morning Branch for 90 days. ARIPiprazol 2022-2022- No [id number] 15mg Take 1 [facility] e 15 mg 2-20 05-01 tablet by [facility] of tablet 00:00: 00:00 mouth in [place] 00 :00 the Medical morning. Branch lamoTRIgine 2022- No [id number] 25mg Take 1 [facility] 25 mg 2-20 05-01 tablet by [facility] of tablet 00:00: 00:00 mouth in [place] 00 :00 the Medical morning. Branch naltrexone 2022-2022- No [id number] 50mg Take 1 [facility] 50 mg 2-20 05-01 tablet by [facility] of tablet 00:00: 00:00 mouth in [place] 00 :00 the Medical morning Branch for 90 days. ARIPiprazol 2022-2022- No [id number] 15mg Take 1 [facility] e 15 mg 2-20 05-01 tablet by [facility] of tablet 00:00: 00:00 mouth in [place] 00 :00 the Medical morning. Branch lamoTRIgine 2022-0 2022- No [id number] 25mg Take 1 [facility] 25 mg 2-20 05-01 tablet by [facility] of tablet 00:00: 00:00 mouth in [place] 00 :00 the Medical morning. Branch naltrexone 2022-2022- No [id number] 50mg Take 1 [facility] 50 mg 2-20 05-01 tablet by [facility] of tablet 00:00: 00:00 mouth in [place] 00 :00 the Medical morning Branch for 90 days. ARIPiprazol 2022-2022- No [id number] 15mg Take 1 [facility] e 15 mg 2-20 05-01 tablet by [facility] of tablet 00:00: 00:00 mouth in [place] 00 :00 the Medical morning. Branch lamoTRIgine 2022-0 2022- No [id number] 25mg Take 1 [facility] 25 mg 2-20 05-01 tablet by [facility] of tablet 00:00: 00:00 mouth in [place] 00 :00 the Medical morning. Branch naltrexone 2022-0 2022- No [id number] 50mg Take 1 [facility] 50 mg 2-20 05-01 tablet by [facility] of tablet 00:00: 00:00 mouth in [place] 00 :00 the Medical morning Branch for 90 days. ARIPiprazol 2022-2022- No [id number] 15mg Take 1 [facility] e 15 mg 2-20 05-01 tablet by [facility] of tablet 00:00: 00:00 mouth in [place] 00 :00 the Medical morning. Branch lamoTRIgine 2022-2022- No [id number] 25mg Take 1 [facility] 25 mg 2-20 05-01 tablet by [facility] of tablet 00:00: 00:00 mouth in [place] 00 :00 the Medical morning. Branch naltrexone 2022-0 2022- No [id number] 50mg Take 1 [facility] 50 mg 2-20 05-01 tablet by [facility] of tablet 00:00: 00:00 mouth in [place] 00 :00 the Medical morning Branch for 90 days. ARIPiprazol 2022-2022- No [id number] 15mg Take 1 [facility] e 15 mg 2-20 05-01 tablet by [facility] of tablet 00:00: 00:00 mouth in [place] 00 :00 the Medical morning. Branch lamoTRIgine 2022-0 2022- No [id number] 25mg Take 1 [facility] 25 mg 2-20 05-01 tablet by [facility] of tablet 00:00: 00:00 mouth in [place] 00 :00 the Medical morning. Branch naltrexone 2022-0 2022- No [id number] 50mg Take 1 [facility] 50 mg 2-20 05-01 tablet by [facility] of tablet 00:00: 00:00 mouth in [place] 00 :00 the Medical morning Branch for 90 days. ARIPiprazol 2022-0 2022- No [id number] 15mg Take 1 [facility] e 15 mg 2-20 05-01 tablet by [facility] of tablet 00:00: 00:00 mouth in [place] 00 :00 the Medical morning. Branch lamoTRIgine 2022-2022- No [id number] 25mg Take 1 [facility] 25 mg 2-20 05-01 tablet by [facility] of tablet 00:00: 00:00 mouth in [place] 00 :00 the Medical morning. Branch naltrexone 2022-2022- No [id number] 50mg Take 1 [facility] 50 mg 2-20 05-01 tablet by [facility] of tablet 00:00: 00:00 mouth in [place] 00 :00 the Medical morning Branch for 90 days. ARIPiprazol 2022-2022- No [id number] 15mg Take 1 [facility] e 15 mg 2-20 05-01 tablet by [facility] of tablet 00:00: 00:00 mouth in [place] 00 :00 the Medical morning. Branch lamoTRIgine 2022-2022- No [id number] 25mg Take 1 [facility] 25 mg 2-20 05-01 tablet by [facility] of tablet 00:00: 00:00 mouth in [place] 00 :00 the Medical morning. Branch naltrexone 2022-2022- No [id number] 50mg Take 1 [facility] 50 mg 2-20 05-01 tablet by [facility] of tablet 00:00: 00:00 mouth in [place] 00 :00 the Medical morning Branch for 90 days. ARIPiprazol 2022-2022- No [id number] 15mg Take 1 [facility] e 15 mg 2-20 05-01 tablet by [facility] of tablet 00:00: 00:00 mouth in [place] 00 :00 the Medical morning. Branch lamoTRIgine 2022-2022- No [id number] 25mg Take 1 [facility] 25 mg 2-20 05-01 tablet by [facility] of tablet 00:00: 00:00 mouth in [place] 00 :00 the Medical morning. Branch naltrexone 2022-2022- No [id number] 50mg Take 1 [facility] 50 mg 2-20 05-01 tablet by [facility] of tablet 00:00: 00:00 mouth in [place] 00 :00 the Medical morning Branch for 90 days. atomoxetine 2022-2022- No [id number] 80mg Take 1 [facility] 80 mg 2-20 -22 capsule by [facility] of capsule 00:00: 04:59 mouth in [place] 00 :00 the Medical morning Branch for 60 days. atomoxetine 2022-3- No [id number] 80mg Take 1 [facility] 80 mg 2-20 04-22 capsule by [facility] of capsule 00:00: 04:59 mouth in [place] 00 :00 the Medical morning Branch for 60 days. atomoxetine 2022-0 2022- No [id number] 80mg Take 1 [facility] 80 mg 2-20 04-22 capsule by [facility] of capsule 00:00: 04:59 mouth in [place] 00 :00 the Medical morning Branch for 60 days. atomoxetine 2022-0 2022- No [id number] 80mg Take 1 [facility] 80 mg 2-20 04-22 capsule by [facility] of capsule 00:00: 04:59 mouth in [place] 00 :00 the Medical morning Branch for 60 days. atomoxetine 2022-0 2022- No [id number] 80mg Take 1 [facility] 80 mg 2-20 04-22 capsule by [facility] of capsule 00:00: 04:59 mouth in [place] 00 :00 the Medical morning Branch for 60 days. atomoxetine 2022-2022- No [id number] 80mg Take 1 [facility] 80 mg 2-20 04-22 capsule by [facility] of capsule 00:00: 04:59 mouth in [place] 00 :00 the Medical morning Branch for 60 days. atomoxetine 2022-0 2022- No [id number] 80mg Take 1 [facility] 80 mg 2-20 04-22 capsule by [facility] of capsule 00:00: 04:59 mouth in [place] 00 :00 the Medical morning Branch for 60 days. atomoxetine 2022-0 2022- No [id number] 80mg Take 1 [facility] 80 mg 2-20 04-22 capsule by [facility] of capsule 00:00: 04:59 mouth in [place] 00 :00 the Medical morning Branch for 60 days. atomoxetine 2022-0 3- No [id number] 80mg Take 1 [facility] 80 mg 2-20 04-22 capsule by [facility] of capsule 00:00: 04:59 mouth in [place] 00 :00 the Medical morning Branch for 60 days. atomoxetine 2022-0 3- No [id number] 80mg Take 1 [facility] 80 mg 2-20 04-22 capsule by [facility] of capsule 00:00: 04:59 mouth in [place] 00 :00 the Medical morning Branch for 60 days. atomoxetine 2022-0 3- No [id number] 80mg Take 1 [facility] 80 mg 2-20 04-22 capsule by [facility] of capsule 00:00: 04:59 mouth in [place] 00 :00 the Medical morning Branch for 60 days. atomoxetine 3-0 2023- No [id number] 80mg Take 1 [facility] 80 mg 2-20 04-22 capsule by [facility] of capsule 00:00: 04:59 mouth in [place] 00 :00 the Medical morning Branch for 60 days. atomoxetine 2023-0 2023- No [id number] 80mg Take 1 [facility] 80 mg 2-20 04-18 capsule by [facility] of capsule 00:00: 00:00 mouth in [place] 00 :00 the Medical morning Branch for 60 days. atomoxetine 3-0 2023- No [id number] 80mg Take 1 [facility] 80 mg 2-20 04-18 capsule by [facility] of capsule 00:00: 00:00 mouth in [place] 00 :00 the Medical morning Branch for 60 days. atomoxetine 3-0 3- No [id number] 80mg Take 1 [facility] 80 mg 2-20 04-18 capsule by [facility] of capsule 00:00: 00:00 mouth in [place] 00 :00 the [facility] morning Branch for 60 days. atomoxetine 3-0 3- No [id number] 80mg Take 1 [facility] 80 mg 2-20 04-18 capsule by [facility] of capsule 00:00: 00:00 mouth in [place] 00 :00 the [facility] morning Branch for 60 days. atomoxetine 3-0 3- No [id number] 80mg Take 1 [facility] 80 mg 2-20 04-18 capsule by [facility] of capsule 00:00: 00:00 mouth in [place] 00 :00 the [facility] morning Branch for 60 days. atomoxetine 3-0 2023- No [id number] 80mg Take 1 [facility] 80 mg 2-20 04-18 capsule by [facility] of capsule 00:00: 00:00 mouth in [place] 00 :00 the Medical morning Branch for 60 days. atomoxetine 2023-0 2023- No [id number] 80mg Take 1 [facility] 80 mg 2-20 04-18 capsule by [facility] of capsule 00:00: 00:00 mouth in [place] 00 :00 the Medical morning Branch for 60 days. atomoxetine 2023-0 2023- No [id number] 80mg Take 1 [facility] 80 mg 2-20 04-18 capsule by [facility] of capsule 00:00: 00:00 mouth in [place] 00 :00 the Medical morning Branch for 60 days. atomoxetine 2023-0 2023- No [id number] 80mg Take 1 [facility] 80 mg 2-20 04-18 capsule by [facility] of capsule 00:00: 00:00 mouth in [place] 00 :00 the Medical morning Branch for 60 days. atomoxetine 2023-0 2023- No [id number] 80mg Take 1 [facility] 80 mg 2-20 04-18 capsule by [facility] of capsule 00:00: 00:00 mouth in [place] 00 :00 the Medical morning Branch for 60 days. atomoxetine 2023-0 2023- No [id number] 80mg Take 1 [facility] 80 mg 2-20 04-18 capsule by [facility] of capsule 00:00: 00:00 mouth in [place] 00 :00 the Medical morning Branch for 60 days. atomoxetine 2023-0 2023- No [id number] 80mg Take 1 [facility] 80 mg 2-20 04-18 capsule by [facility] of capsule 00:00: 00:00 mouth in [place] 00 :00 the Medical morning Branch for 60 days. hydrOXYzine 2023-0 Yes [id number] 25mg Take 1 [facility] 25 mg 1-23 tablet by [facility] of tablet 00:00: mouth [place] 00 every 6 Medical (six) Branch hours as needed for Anxiety. hydrOXYzine 2023-0 Yes [id number] 25mg Take 1 [facility] 25 mg 1-23 tablet by [facility] of tablet 00:00: mouth [place] 00 every 6 Medical (six) Branch hours as needed for Anxiety. hydrOXYzine 2023-0 Yes [id number] 25mg Take 1 [facility] 25 mg 1-23 tablet by [facility] of tablet 00:00: mouth [place] 00 every 6 Medical (six) Branch hours as needed for Anxiety. hydrOXYzine 2023-0 Yes [id number] 25mg Take 1 [facility] 25 mg 1-23 tablet by [facility] of tablet 00:00: mouth [place] 00 every 6 Medical (six) Branch hours as needed for Anxiety. hydrOXYzine 2023-0 Yes [id number] 25mg Take 1 [facility] 25 mg 1-23 tablet by [facility] of tablet 00:00: mouth [place] 00 every 6 Medical (six) Branch hours as needed for Anxiety. hydrOXYzine 2023-0 Yes [id number] 25mg Take 1 [facility] 25 mg 1-23 tablet by [facility] of tablet 00:00: mouth [place] 00 every 6 Medical (six) Branch hours as needed for Anxiety. hydrOXYzine 2023-0 Yes [id number] 25mg Take 1 [facility] 25 mg 1-23 tablet by [facility] of tablet 00:00: mouth [place] 00 every 6 Medical (six) Branch hours as needed for Anxiety. hydrOXYzine 2023-0 Yes [id number] 25mg Take 1 [facility] 25 mg 1-23 tablet by [facility] of tablet 00:00: mouth [place] 00 every 6 Medical (six) Branch hours as needed for Anxiety. hydrOXYzine 2023-0 Yes [id number] 25mg Take 1 [facility] 25 mg 1-23 tablet by [facility] of tablet 00:00: mouth [place] 00 every 6 Medical (six) Branch hours as needed for Anxiety. hydrOXYzine 2023-0 Yes [id number] 25mg Take 1 [facility] 25 mg 1-23 tablet by [facility] of tablet 00:00: mouth [place] 00 every 6 Medical (six) Branch hours as needed for Anxiety. hydrOXYzine 2023-0 Yes [id number] 25mg Take 1 [facility] 25 mg 1-23 tablet by [facility] of tablet 00:00: mouth [place] 00 every 6 Medical (six) Branch hours as needed for Anxiety. hydrOXYzine 2023-0 Yes [id number] 25mg Take 1 [facility] 25 mg 1-23 tablet by [facility] of tablet 00:00: mouth [place] 00 every 6 Medical (six) Branch hours as needed for Anxiety. hydrOXYzine 2023-0 Yes [id number] 25mg Take 1 [facility] 25 mg 1-23 tablet by [facility] of tablet 00:00: mouth [place] 00 every 6 Medical (six) Branch hours as needed for Anxiety. hydrOXYzine 2023-0 Yes [id number] 25mg Take 1 [facility] 25 mg 1-23 tablet by [facility] of tablet 00:00: mouth [place] 00 every 6 Medical (six) Branch hours as needed for Anxiety. hydrOXYzine 2023-0 Yes [id number] 25mg Take 1 [facility] 25 mg 1-23 tablet by [facility] of tablet 00:00: mouth [place] 00 every 6 Medical (six) Branch hours as needed for Anxiety. hydrOXYzine 2023-0 Yes [id number] 25mg Take 1 [facility] 25 mg 1-23 tablet by [facility] of tablet 00:00: mouth [place] 00 every 6 Medical (six) Branch hours as needed for Anxiety. hydrOXYzine 2023-0 Yes [id number] 25mg Take 1 [facility] 25 mg 1-23 tablet by [facility] of tablet 00:00: mouth [place] 00 every 6 Medical (six) Branch hours as needed for Anxiety. hydrOXYzine 2023-0 Yes [id number] 25mg Take 1 [facility] 25 mg 1-23 tablet by [facility] of tablet 00:00: mouth [place] 00 every 6 Medical (six) Branch hours as needed for Anxiety. hydrOXYzine 2023-0 Yes [id number] 25mg Take 1 [facility] 25 mg 1-23 tablet by [facility] of tablet 00:00: mouth [place] 00 every 6 Medical (six) Branch hours as needed for Anxiety. hydrOXYzine 2023-0 Yes [id number] 25mg Take 1 [facility] 25 mg 1-23 tablet by [facility] of tablet 00:00: mouth [place] 00 every 6 Medical (six) Branch hours as needed for Anxiety. hydrOXYzine 2023-0 Yes [id number] 25mg Take 1 [facility] 25 mg 1-23 tablet by [facility] of tablet 00:00: mouth [place] 00 every 6 Medical (six) Branch hours as needed for Anxiety. hydrOXYzine 2023-0 Yes [id number] 25mg Take 1 [facility] 25 mg 1-23 tablet by [facility] of tablet 00:00: mouth [place] 00 every 6 Medical (six) Branch hours as needed for Anxiety. hydrOXYzine 2023-0 Yes [id number] 25mg Take 1 [facility] 25 mg 1-23 tablet by [facility] of tablet 00:00: mouth [place] 00 every 6 Medical (six) Branch hours as needed for Anxiety. hydrOXYzine 2023-0 Yes [id number] 25mg Take 1 [facility] 25 mg 1-23 tablet by [facility] of tablet 00:00: mouth [place] 00 every 6 Medical (six) Branch hours as needed for Anxiety. hydrOXYzine 2023-0 Yes [id number] 25mg Take 1 [facility] 25 mg 1-23 tablet by [facility] of tablet 00:00: mouth [place] 00 every 6 Medical (six) Branch hours as needed for Anxiety. hydrOXYzine 2023-0 Yes [id number] 25mg Take 1 [facility] 25 mg 1-23 tablet by [facility] of tablet 00:00: mouth [place] 00 every 6 Medical (six) Branch hours as needed for Anxiety. hydrOXYzine 2023-0 Yes [id number] 25mg Take 1 [facility] 25 mg 1-23 tablet by [facility] of tablet 00:00: mouth [place] 00 every 6 Medical (six) Branch hours as needed for Anxiety. hydrOXYzine 2023-0 Yes [id number] 25mg Take 1 [facility] 25 mg 1-23 tablet by [facility] of tablet 00:00: mouth [place] 00 every 6 Medical (six) Branch hours as needed for Anxiety. hydrOXYzine 2023-0 Yes [id number] 25mg Take 1 [facility] 25 mg 1-23 tablet by [facility] of tablet 00:00: mouth [place] 00 every 6 Medical (six) Branch hours as needed for Anxiety. hydrOXYzine 2023-0 Yes [id number] 25mg Take 1 [facility] 25 mg 1-23 tablet by [facility] of tablet 00:00: mouth [place] 00 every 6 Medical (six) Branch hours as needed for Anxiety. hydrOXYzine 2023-0 Yes [id number] 25mg Take 1 [facility] 25 mg 1-23 tablet by [facility] of tablet 00:00: mouth [place] 00 every 6 Medical (six) Branch hours as needed for Anxiety. hydrOXYzine 2023-0 Yes [id number] 25mg Take 1 [facility] 25 mg 1-23 tablet by [facility] of tablet 00:00: mouth [place] 00 every 6 Medical (six) Branch hours as needed for Anxiety. hydrOXYzine 2023-0 Yes [id number] 25mg Take 1 [facility] 25 mg 1-23 tablet by [facility] tablet 00:00: mouth [place] 00 every 6 Medical (six) Branch hours as needed for Anxiety. hydrOXYzine 2023-0 Yes [id number] 25mg Take 1 [facility] 25 mg 1-23 tablet by [facility] of tablet 00:00: mouth [place] 00 every 6 Medical (six) Branch hours as needed for Anxiety. hydrOXYzine 2023-0 Yes [id number] 25mg Take 1 [facility] 25 mg 1-23 tablet by [facility] of tablet 00:00: mouth [place] 00 every 6 Medical (six) Branch hours as needed for Anxiety. hydrOXYzine 2023-0 Yes [id number] 25mg Take 1 [facility] 25 mg 1-23 tablet by [facility] of tablet 00:00: mouth [place] 00 every 6 Medical (six) Branch hours as needed for Anxiety. hydrOXYzine 2023-0 Yes [id number] 25mg Take 1 [facility] 25 mg 1-23 tablet by [facility] of tablet 00:00: mouth [place] 00 every 6 Medical (six) Branch hours as needed for Anxiety. hydrOXYzine 2023-0 Yes [id number] 25mg Take 1 [facility] 25 mg 1-23 tablet by [facility] of tablet 00:00: mouth [place] 00 every 6 Medical (six) Branch hours as needed for Anxiety. hydrOXYzine 2023-0 Yes [id number] 25mg Take 1 [facility] 25 mg 1-23 tablet by [facility] of tablet 00:00: mouth [place] 00 every 6 Medical (six) Branch hours as needed for Anxiety. hydrOXYzine 2023-0 Yes [id number] 25mg Take 1 [facility] 25 mg 1-23 tablet by [facility] of tablet 00:00: mouth [place] 00 every 6 Medical (six) Branch hours as needed for Anxiety. hydrOXYzine 2023-0 Yes [id number] 25mg Take 1 [facility] 25 mg 1-23 tablet by [facility] of tablet 00:00: mouth [place] 00 every 6 Medical (six) Branch hours as needed for Anxiety. hydrOXYzine 2023-0 Yes [id number] 25mg Take 1 [facility] 25 mg 1-23 tablet by [facility] of tablet 00:00: mouth [place] 00 every 6 Medical (six) Branch hours as needed for Anxiety. hydrOXYzine 2023-0 Yes [id number] 25mg Take 1 [facility] 25 mg 1-23 tablet by [facility] of tablet 00:00: mouth [place] 00 every 6 Medical (six) Branch hours as needed for Anxiety. hydrOXYzine 2023-0 Yes [id number] 25mg Take 1 [facility] 25 mg 1-23 tablet by [facility] of tablet 00:00: mouth [place] 00 every 6 Medical (six) Branch hours as needed for Anxiety. hydrOXYzine 2023-0 2023- No [id number] 25mg Take 1 [facility] 25 mg 1-23 07-22 tablet by [facility] of tablet 00:00: 00:00 mouth [place] 00 :00 every 6 Medical (six) Branch hours as needed for Anxiety. hydrOXYzine 2023-0 2023- No [id number] 25mg Take 1 [facility] 25 mg 1-23 07-22 tablet by [facility] of tablet 00:00: 00:00 mouth [place] 00 :00 every 6 Medical (six) Branch hours as needed for Anxiety. lamoTRIgine 2023-0 Yes [id number] 25mg Take 1 [facility] 25 mg 1-11 tablet by [facility] of tablet 00:00: mouth in [place] 00 the Medical morning. Branch lamoTRIgine 2023-0 Yes [id number] 25mg Take 1 [facility] 25 mg 1-11 tablet by [facility] of tablet 00:00: mouth in [place] 00 the Medical morning. Branch lamoTRIgine 2023-0 Yes [id number] 25mg Take 1 [facility] 25 mg 1-11 tablet by [facility] of tablet 00:00: mouth in [place] 00 the Medical morning. Branch lamoTRIgine 3-0 Yes [id number] 25mg Take 1 [facility] 25 mg 1-11 tablet by [facility] of tablet 00:00: mouth in [place] 00 the Medical morning. Branch lamoTRIgine 2022-0 Yes [id number] 25mg Take 1 [facility] 25 mg 1-11 tablet by [facility] of tablet 00:00: mouth in [place] 00 the Medical morning. Branch lamoTRIgine 2022-0 2022- No [id number] 25mg Take 1 [facility] 25 mg 1-11 02-20 tablet by [facility] of tablet 00:00: 00:00 mouth in [place] 00 :00 the Medical morning. Branch lamoTRIgine 2022-0 2022- No [id number] 25mg Take 1 [facility] 25 mg 1-11 02-20 tablet by [facility] of tablet 00:00: 00:00 mouth in [place] 00 :00 the Medical morning. Branch lamoTRIgine 2022-0 2022- No [id number] 25mg Take 1 [facility] 25 mg 1-11 02-20 tablet by [facility] of tablet 00:00: 00:00 mouth in [place] 00 :00 the Medical morning. Branch lamoTRIgine 2022-0 2022- No [id number] 25mg Take 1 [facility] 25 mg 1-11 02-20 tablet by [facility] of tablet 00:00: 00:00 mouth in [place] 00 :00 the Medical morning. Branch lamoTRIgine 2022-0 2022- No [id number] 25mg Take 1 [facility] 25 mg 1-11 02-20 tablet by [facility] of tablet 00:00: 00:00 mouth in [place] 00 :00 the Medical morning. Branch lamoTRIgine 2022-0 2022- No [id number] 25mg Take 1 [facility] 25 mg 1-11 02-20 tablet by [facility] of tablet 00:00: 00:00 mouth in [place] 00 :00 the Medical morning. Branch lamoTRIgine 2022-0 2022- No [id number] 25mg Take 1 [facility] 25 mg 1-11 02-20 tablet by [facility] of tablet 00:00: 00:00 mouth in [place] 00 :00 the Medical morning. Branch ARIPiprazol 2022-0 2022- No [id number] 15mg Take 1 [facility] e 15 mg 1-10 04-11 tablet by it[facility] of tablet 00:00: 04:59 mouth in [place] 00 :00 the Medical morning Branch for 90 days. ARIPiprazol 2022-2022- No [id number] 15mg Take 1 [facility] e 15 mg 1-10 04-11 tablet by ity of tablet 00:00: 04:59 mouth in [place] 00 :00 the Medical morning Branch for 90 days. ARIPiprazol 2022- No [id number] 15mg Take 1 [facility] e 15 mg 1-10 04-11 tablet by ity of tablet 00:00: 04:59 mouth in [place] 00 :00 the Medical morning Branch for 90 days. ARIPiprazol 2022- No [id number] 15mg Take 1 [facility] e 15 mg 1-10 04-11 tablet by it[facility] of tablet 00:00: 04:59 mouth in [place] 00 :00 the Medical morning Branch for 90 days. ARIPiprazol 2022- No [id number] 15mg Take 1 [facility] e 15 mg 1-10 04-11 tablet by it[facility] of tablet 00:00: 04:59 mouth in [place] 00 :00 the Medical morning Branch for 90 days. ARIPiprazol 2022- No [id number] 15mg Take 1 [facility] e 15 mg 1-10 04-11 tablet by it[facility] of tablet 00:00: 04:59 mouth in [place] 00 :00 the Medical morning Branch for 90 days. ARIPiprazol 2022- No [id number] 15mg Take 1 [facility] e 15 mg 1-10 02-20 tablet by it[facility] of tablet 00:00: 00:00 mouth in [place] 00 :00 the Medical morning Branch for 90 days. ARIPiprazol 2022-2022- No [id number] 15mg Take 1 [facility] e 15 mg 1-10 02-20 tablet by [facility] of tablet 00:00: 00:00 mouth in [place] 00 :00 the Medical morning Branch for 90 days. ARIPiprazol 2022-2022- No [id number] 15mg Take 1 [facility] e 15 mg 1-10 02-20 tablet by it[facility] of tablet 00:00: 00:00 mouth in [place] 00 :00 the Medical morning Branch for 90 days. ARIPiprazol 2022- No [id number] 15mg Take 1 [facility] e 15 mg 1-10 02-20 tablet by it[facility] of tablet 00:00: 00:00 mouth in [place] 00 :00 the [facility] Branch for 90 days. ARIPiprazol 2022- No [id number] 15mg Take 1 [facility] e 15 mg 1-10 02-20 tablet by ity of tablet 00:00: 00:00 mouth in [place] 00 :00 the [facility] Branch for 90 days. ARIPiprazol 2022- No [id number] 15mg Take 1 [facility] e 15 mg 1-10 02-20 tablet by ity of tablet 00:00: 00:00 mouth in [place] 00 :00 the [facility] Branch for 90 days. ARIPiprazol 2022- No [id number] 15mg Take 1 [facility] e 15 mg 1-10 02-20 tablet by ity of tablet 00:00: 00:00 mouth in [place] 00 :00 the [facility] for 90 days. ARIPiprazol 2021-07- No [id number] 300mg [facility] e (ABILIFY 2-15 12-15 ity of MAINTENA) 17:45: 16:48 [place] injection 00 :00 Medical SSRR 300 mg Branch ARIPiprazol 2021-07- No [id number] 300mg [facility] e (ABILIFY 2-15 12-15 ity of MAINTENA) 17:45: 16:48 [place] injection 00 :00 Medical SSRR 300 mg Branch ARIPiprazol 2021-07- No [id number] 300mg [facility] e (ABILIFY 2-15 12-15 ity of MAINTENA) 17:45: 16:48 [place] injection 00 :00 Medical SSRR 300 mg Branch ARIPiprazol 2021-07- No [id number] 300mg [facility] e (ABILIFY 2-15 12-15 ity of MAINTENA) 17:45: 16:48 [place] injection 00 :00 Medical SSRR 300 mg Branch hydrOXYzine 2021-07 Yes [id number] 25mg Take 1 [facility] 25 mg 2-12 tablet by ity of tablet 00:00: mouth [place] 00 every 6 Medical (six) Branch hours as needed for Anxiety. lamoTRIgine 2021-07 Yes [id number] 25mg Take 1 [facility] 25 mg 2-12 tablet by ity of tablet 00:00: mouth in [place] 00 the Medical morning. Branch naltrexone 2021-07 Yes [id number] 50mg Take 1 [facility] vers 50 mg 2-12 tablet by ity of tablet 00:00: mouth in [place] 00 the Medical morning. Branch hydrOXYzine 2021- Yes [id number] 25mg Take 1 [facility] 25 mg 2-12 tablet by ity of tablet 00:00: mouth [place] 00 every 6 Medical (six) Branch hours as needed for Anxiety. lamoTRIgine 2021-07 Yes [id number] 25mg Take 1 [facility] 25 mg 2-12 tablet by ity of tablet 00:00: mouth in [place] 00 the Medical morning. Branch naltrexone 2021-07 Yes [id number] 50mg Take 1 [facility] vers 50 mg 2-12 tablet by ity of tablet 00:00: mouth in [place] 00 the Medical morning. Branch hydrOXYzine 2021-07 Yes [id number] 25mg Take 1 [facility] 25 mg 2-12 tablet by ity of tablet 00:00: mouth [place] 00 every 6 Medical (six) Branch hours as needed for Anxiety. lamoTRIgine 2021-07 Yes [id number] 25mg Take 1 [facility] 25 mg 2-12 tablet by ity of tablet 00:00: mouth in [place] 00 the Medical morning. Branch naltrexone 2021- Yes [id number] 50mg Take 1 [facility] vers 50 mg 2-12 tablet by ity of tablet 00:00: mouth in [place] 00 the Medical morning. Branch hydrOXYzine 2021- Yes [id number] 25mg Take 1 [facility] 25 mg 2-12 tablet by ity of tablet 00:00: mouth [place] 00 every 6 Medical (six) Branch hours as needed for Anxiety. lamoTRIgine 2021-07 Yes [id number] 25mg Take 1 [facility] 25 mg 2-12 tablet by ity of tablet 00:00: mouth in [place] 00 the Medical morning. Branch naltrexone 2021- Yes [id number] 50mg Take 1 [facility] vers 50 mg 2-12 tablet by ity of tablet 00:00: mouth in [place] 00 the Medical morning. Branch hydrOXYzine 2021- Yes [id number] 25mg Take 1 [facility] 25 mg 2-12 tablet by ity of tablet 00:00: mouth [place] 00 every 6 Medical (six) Branch hours as needed for Anxiety. lamoTRIgine 2021-07 Yes [id number] 25mg Take 1 [facility] 25 mg 2-12 tablet by ity of tablet 00:00: mouth in [place] 00 the Medical morning. Branch naltrexone 2021-07 Yes [id number] 50mg Take 1 [facility] vers 50 mg 2-12 tablet by ity of tablet 00:00: mouth in [place] 00 the Medical morning. Branch hydrOXYzine 2021-07 Yes [id number] 25mg Take 1 [facility] 25 mg 2-12 tablet by ity of tablet 00:00: mouth [place] 00 every 6 Medical (six) Branch hours as needed for Anxiety. lamoTRIgine 2021-07 Yes [id number] 25mg Take 1 [facility] 25 mg 2-12 tablet by ity of tablet 00:00: mouth in [place] 00 the Medical morning. Branch naltrexone 2021-07 Yes [id number] 50mg Take 1 [facility] vers 50 mg 2-12 tablet by ity of tablet 00:00: mouth in [place] 00 the Medical morning. Branch hydrOXYzine 2021-07 Yes [id number] 25mg Take 1 [facility] 25 mg 2-12 tablet by ity of tablet 00:00: mouth [place] 00 every 6 Medical (six) Branch hours as needed for Anxiety. lamoTRIgine 2021-07 Yes [id number] 25mg Take 1 [facility] 25 mg 2-12 tablet by ity of tablet 00:00: mouth in [place] 00 the Medical morning. Branch naltrexone 2021- Yes [id number] 50mg Take 1 [facility] vers 50 mg 2-12 tablet by ity of tablet 00:00: mouth in [place] 00 the Medical morning. Branch hydrOXYzine 2021- Yes [id number] 25mg Take 1 [facility] 25 mg 2-12 tablet by ity of tablet 00:00: mouth [place] 00 every 6 Medical (six) Branch hours as needed for Anxiety. lamoTRIgine 2021- Yes [id number] 25mg Take 1 [facility] 25 mg 2-12 tablet by ity of tablet 00:00: mouth in [place] 00 the Medical morning. Branch naltrexone 2021- Yes [id number] 50mg Take 1 [facility] vers 50 mg 2-12 tablet by ity of tablet 00:00: mouth in [place] 00 the Medical morning. Branch hydrOXYzine 2021- Yes [id number] 25mg Take 1 [facility] 25 mg 2-12 tablet by ity of tablet 00:00: mouth [place] 00 every 6 Medical (six) Branch hours as needed for Anxiety. lamoTRIgine 2021-07 Yes [id number] 25mg Take 1 [facility] 25 mg 2-12 tablet by ity of tablet 00:00: mouth in [place] 00 the Medical morning. Branch naltrexone 2021-07 Yes [id number] 50mg Take 1 [facility] vers 50 mg 2-12 tablet by ity of tablet 00:00: mouth in [place] 00 the Medical morning. Branch hydrOXYzine 2021-07 Yes [id number] 25mg Take 1 [facility] 25 mg 2-12 tablet by ity of tablet 00:00: mouth [place] 00 every 6 Medical (six) Branch hours as needed for Anxiety. naltrexone 2021-07 Yes [id number] 50mg Take 1 [facility] vers 50 mg 2-12 tablet by ity of tablet 00:00: mouth in [place] 00 the Medical morning. Branch naltrexone 2021-07 Yes [id number] 50mg Take 1 [facility] vers 50 mg 2-12 tablet by ity of tablet 00:00: mouth in [place] 00 the Medical morning. Branch naltrexone 2021-07 Yes [id number] 50mg Take 1 [facility] vers 50 mg 2-12 tablet by ity of tablet 00:00: mouth in [place] 00 the Medical morning. Branch naltrexone 2021-07 Yes [id number] 50mg Take 1 [facility] vers 50 mg 2-12 tablet by ity of tablet 00:00: mouth in [place] 00 the Medical morning. Branch naltrexone 2021-07 Yes [id number] 50mg Take 1 [facility] vers 50 mg 2-12 tablet by ity of tablet 00:00: mouth in [place] 00 the Medical morning. Branch atomoxetine 2021-07- No [id number] 60mg Take 1 [facility] (STRATTERA) 209-12 capsule by i ty of 60 mg 00:00: 04:59 mouth in [place] capsule 00 :00 the Medical morning Branch for 90 days. atomoxetine 2021-07- No [id number] 60mg Take 1 [facility] (STRATTERA) 2-09-12 capsule by i ty of 60 mg 00:00: 04:59 mouth in [place] capsule 00 :00 the Medical morning Branch for 90 days. atomoxetine 2021-07- No [id number] 60mg Take 1 [facility] (STRATTERA) 209-12 capsule by i ty of 60 mg 00:00: 04:59 mouth in [place] capsule 00 :00 the Medical morning Branch for 90 days. atomoxetine 2021-07- No [id number] 60mg Take 1 [facility] (STRATTERA) 08-14 capsule by i ty of 60 mg 00:00: 04:59 mouth in [place] capsule 00 :00 the Medical morning Branch for 90 days. atomoxetine 2021-07- No [id number] 60mg Take 1 [facility] (STRATTERA) 08-14 capsule by i ty of 60 mg 00:00: 04:59 mouth in [place] capsule 00 :00 the Medical morning Branch for 90 days. atomoxetine 2021-07- No [id number] 60mg Take 1 [facility] (STRATTERA) 08-14 capsule by i ty of 60 mg 00:00: 04:59 mouth in [place] capsule 00 :00 the Medical morning Branch for 90 days. atomoxetine 2021-07- No [id number] 60mg Take 1 [facility] (STRATTERA) 08-14 capsule by i ty of 60 mg 00:00: 04:59 mouth in [place] capsule 00 :00 the Medical morning Branch for 90 days. atomoxetine 2021-07- No [id number] 60mg Take 1 [facility] (STRATTERA) 08-14 capsule by i ty of 60 mg 00:00: 04:59 mouth in [place] capsule 00 :00 the Medical morning Branch for 90 days. atomoxetine 2021-07- No [id number] 60mg Take 1 [facility] (STRATTERA) 08-14 capsule by i ty of 60 mg 00:00: 04:59 mouth in [place] capsule 00 :00 the Medical morning Branch for 90 days. atomoxetine 2021-073- No [id number] 60mg Take 1 [facility] (STRATTERA) 08-14 capsule by i ty of 60 mg 00:00: 04:59 mouth in [place] capsule 00 :00 the Medical morning Branch for 90 days. atomoxetine 2021-073- No [id number] 60mg Take 1 [facility] (STRATTERA) 08-14 capsule by i ty of 60 mg 00:00: 04:59 mouth in [place] capsule 00 :00 the Medical morning Branch for 90 days. atomoxetine 2021-073- No [id number] 60mg Take 1 [facility] (STRATTERA) 08-14 capsule by i ty of 60 mg 00:00: 04:59 mouth in [place] capsule 00 :00 the Medical morning Branch for 90 days. atomoxetine 2021-07- No [id number] 60mg Take 1 [facility] (STRATTERA) 08-14 capsule by i ty of 60 mg 00:00: 04:59 mouth in [place] capsule 00 :00 the Medical morning Branch for 90 days. atomoxetine 2021-07- No [id number] 60mg Take 1 [facility] (STRATTERA) 08-14 capsule by i ty of 60 mg 00:00: 04:59 mouth in [place] capsule 00 :00 the Medical morning Branch for 90 days. atomoxetine 2021-07- No [id number] 60mg Take 1 [facility] (STRATTERA) 08-14 capsule by i ty of 60 mg 00:00: 00:00 mouth in [place] capsule 00 :00 the Medical morning Branch for 90 days. naltrexone 2021-07- No [id number] 50mg Take 1 [facility] [place] 50 mg 08-14-20 tablet by ity of tablet 00:00: 00:00 mouth in [place] 00 :00 the Medical morning. Branch atomoxetine 2021-07- No [id number] 60mg Take 1 [facility] (STRATTERA) 08-14 capsule by i ty of 60 mg 00:00: 00:00 mouth in [place] capsule 00 :00 the Medical morning Branch for 90 days. naltrexone 2021-07- No [id number] 50mg Take 1 [facility] [place] 50 mg 08-14-20 tablet by ity of tablet 00:00: 00:00 mouth in [place] 00 :00 the Medical morning. Branch atomoxetine 2021-07- No [id number] 60mg Take 1 [facility] (STRATTERA) 08-14-20 capsule by i ty of 60 mg 00:00: 00:00 mouth in [place] capsule 00 :00 the Medical morning Branch for 90 days. naltrexone 2021-07- No [id number] 50mg Take 1 Un [place] 50 mg 08-14-20 tablet by ity of tablet 00:00: 00:00 mouth in [place] 00 :00 the Medical morning. Branch atomoxetine 2021-07- No [id number] 60mg Take 1 [facility] (STRATTERA) 2-06 03-20 capsule by i ty of 60 mg 00:00: 00:00 mouth in [place] capsule 00 :00 the Medical morning Branch for 90 days. naltrexone 2021-07- No [id number] 50mg Take 1 Un [place] 50 mg 2-06 03-20 tablet by ity of tablet 00:00: 00:00 mouth in [place] 00 :00 the Medical morning. Branch atomoxetine 2021-07- No [id number] 60mg Take 1 [facility] (STRATTERA) 2-06 03-20 capsule by i ty of 60 mg 00:00: 00:00 mouth in [place] capsule 00 :00 the Medical morning Branch for 90 days. naltrexone 2021-07- No [id number] 50mg Take 1 Un [place] 50 mg 2-06 03-20 tablet by ity of tablet 00:00: 00:00 mouth in [place] 00 :00 the Medical morning. Branch atomoxetine 2021-07- No [id number] 60mg Take 1 [facility] (STRATTERA) 2-06 03-20 capsule by i ty of 60 mg 00:00: 00:00 mouth in [place] capsule 00 :00 the Medical morning Branch for 90 days. naltrexone 2021-07- No [id number] 50mg Take 1 Un [place] 50 mg 2-20 tablet by ity of tablet 00:00: 00:00 mouth in [place] 00 :00 the Medical morning. Branch atomoxetine 2021-07- No [id number] 60mg Take 1 [facility] (STRATTERA) 2-06 03-20 capsule by i ty of 60 mg 00:00: 00:00 mouth in [place] capsule 00 :00 the Medical morning Branch for 90 days. naltrexone 2021-07- No [id number] 50mg Take 1 [facility] [place] 50 mg 2-06 03-20 tablet by ity of tablet 00:00: 00:00 mouth in [place] 00 :00 the Medical morning. Branch hydrOXYzine 2021-07- No [id number] 25mg Take 1 [facility] 25 mg 08-14 tablet by ity of tablet 00:00: 00:00 mouth [place] 00 :00 every 6 Medical (six) Branch hours as needed for Anxiety. hydrOXYzine 2021-07- No [id number] 25mg Take 1 [facility] 25 mg 2-12 -23 tablet by ity of tablet 00:00: 00:00 mouth [place] 00 :00 every 6 Medical (six) Branch hours as needed for Anxiety. hydrOXYzine 2021-07- No [id number] 25mg Take 1 [facility] 25 mg 2-12 -23 tablet by ity of tablet 00:00: 00:00 mouth [place] 00 :00 every 6 Medical (six) Branch hours as needed for Anxiety. hydrOXYzine 2021-07- No [id number] 25mg Take 1 [facility] 25 mg 2-12 -23 tablet by ity of tablet 00:00: 00:00 mouth [place] 00 :00 every 6 Medical (six) Branch hours as needed for Anxiety. hydrOXYzine 2021-07- No [id number] 25mg Take 1 [facility] 25 mg 2-06 02- tablet by ity of tablet 00:00: 00:00 mouth [place] 00 :00 every 6 Medical (six) Branch hours as needed for Anxiety. hydrOXYzine 2021-07- No [id number] 25mg Take 1 [facility] 25 mg 2-06 02-23 tablet by ity of tablet 00:00: 00:00 mouth [place] 00 :00 every 6 Medical (six) Branch hours as needed for Anxiety. hydrOXYzine 2021-07- No [id number] 25mg Take 1 [facility] 25 mg 2-12 - tablet by ity of tablet 00:00: 00:00 mouth [place] 00 :00 every 6 Medical (six) Branch hours as needed for Anxiety. lamoTRIgine 2021-07- No [id number] 25mg Take 1 [facility] 25 mg 2-12 -10 tablet by ity of tablet 00:00: 00:00 mouth in [place] 00 :00 the Medical morning. Branch lamoTRIgine 2021-2022- No [id number] 25mg Take 1 [facility] 25 mg 2-12 -10 tablet by ity of tablet 00:00: 00:00 mouth in [place] 00 :00 the Medical morning. [place] lamoTRIgine 2021-2022- No [id number] 25mg Take 1 [facility] 25 mg 2-12 -10 tablet by ity of tablet 00:00: 00:00 mouth in [place] 00 :00 the Medical morning. Branch lamoTRIgine 2021-07- No [id number] 25mg Take 1 [facility] 25 mg 2-12 -10 tablet by ity of tablet 00:00: 00:00 mouth in [place] 00 :00 the Medical morning. Branch lamoTRIgine 2021-07- No [id number] 25mg Take 1 [facility] 25 mg 2-12 -10 tablet by ity of tablet 00:00: 00:00 mouth in [place] 00 :00 the Medical morning. Branch hydrOXYzine 2021-07- No 25mg 25 mg, [facility] vers (ATARAX) -30 -30 Oral, ity of tablet 25 05:00: 05:14 ONCE, 1 [place] mg 00 :00 dose, On Medical Tue Branch 05/31/22 at 2300, [place] hydrOXYzine 2021-07 Yes [id number] 25mg Take 1 [facility] 25 mg 1-29 tablet by ity of tablet 00:00: mouth [place] 00 every 6 Medical (six) Branch hours as needed for Anxiety. hydrOXYzine 2021-07- No [id number] 25mg Take 1 [facility] 25 mg 1-29 12-12 tablet by ity of tablet 00:00: 00:00 mouth [place] 00 :00 every 6 Medical (six) Branch hours as needed for Anxiety. hydrOXYzine 2021-07- No [id number] 25mg Take 1 [facility] 25 mg 1-29 12-12 tablet by ity of tablet 00:00: 00:00 mouth [place] 00 :00 every 6 Medical (six) Branch hours as needed for Anxiety. hydrOXYzine 2021-07- No [id number] 25mg Take 1 [facility] 25 mg 1-29 12-12 tablet by ity of tablet 00:00: 00:00 mouth [place] 00 :00 every 6 Medical (six) Branch hours as needed for Anxiety. hydrOXYzine 2021-07- No [id number] 25mg Take 1 [facility] 25 mg 1-29 12-12 tablet by ity of tablet 00:00: 00:00 mouth [place] 00 :00 every 6 Medical (six) Branch hours as needed for Anxiety. hydrOXYzine 2021-07- No [id number] 25mg Take 1 [facility] 25 mg 1-29 12-12 tablet by ity of tablet 00:00: 00:00 mouth [place] 00 :00 every 6 Medical (six) Branch hours as needed for Anxiety. ARIPiprazol 2021-07- No [id number] 300mg [facility] e (ABILIFY -17 11-17 ity of MAINTENA) 17:00: 16:17 [place] injection 00 :00 Medical SSRR 300 mg Branch ARIPiprazol 2021-07- No [id number] 300mg [facility] e (ABILIFY 17 11-17 ity of MAINTENA) 17:00: 16:17 [place] injection 00 :00 Medical SSRR 300 mg Branch ARIPiprazol 2021-07- No [id number] 300mg [facility] e (ABILIFY 17 11-17 ity of MAINTENA) 17:00: 16:17 [place] injection 00 :00 Medical SSRR 300 mg Branch ARIPiprazol 2021-07- No [id number] 300mg [facility] e (ABILIFY 17 11-17 ity of MAINTENA) 17:00: 16:17 [place] injection 00 :00 Medical SSRR 300 mg Branch ARIPiprazol 2021-07- No [id number] 300mg [facility] e (ABILIFY 17 11-17 ity of MAINTENA) 17:00: 16:17 [place] injection 00 :00 Medical SSRR 300 mg Branch [facility] Yes [facility] 1-15 ity of 300 mg sers 00:00: [facility] 2021-07 Yes [facility] MA[facility]TE[facility] 1-15 ity of 300 mg sers 00:00: [facility]07 Yes [facility] MA[facility] 1-15 ity of 300 mg sers 00:00: [facility] 2021-07 Yes [facility] MA[facility]TE[facility] 1-15 ity of 300 mg sers 00:00: [facility] 2021-07 Yes [facility] MAINTENA 1-15 ity of 300 mg sers 00:00: [facility] 2021-07 Yes [facility] MAINTENA 1-15 ity of 300 mg sers 00:00: [facility] 2021-07 Yes [facility] MAINTENA 1-15 ity of 300 mg sers 00:00: [place] [facility] Branch ABIFY 2021-07 Yes [facility] MAINTENA 1-15 ity of 300 mg sers 00:00: [place] 00 Medical Branch ABILIFY 2021-07 Yes [facility] MAINTENA 1-15 ity of 300 mg sers 00:00: [place] 00 Medical Branch ABILIFY 2021-2022- No [facility] MAINTENA 1-15 -10 ity of 300 mg sers 00:00: 00:00 [place] 00 :00 Medical Branch ABILIFY 2021-2022- No [facility] MAINTENA 1-15 -10 ity of 300 mg sers 00:00: 00:00 [place] 00 :00 Medical Branch ABILIFY 2021-07- No [facility] MAINTENA 1-15 -10 ity of 300 mg sers 00:00: 00:00 [place] 00 :00 Medical Branch ABILIFY 2021-2022- No [facility] MAINTENA 1-15 -10 ity of 300 mg sers 00:00: 00:00 [place] 00 :00 Medical Branch ABILIFY 2021-2022- No [facility] MAINTENA 1-15 -10 ity of 300 mg sers 00:00: 00:00 [place] 00 :00 Medical Branch ABILIFY 2021-07- No [facility] MAINTENA 1-15 -10 ity of 300 mg sers 00:00: 00:00 [place] 00 :00 Medical Branch atomoxetine 2021-07 Yes [id number] 40mg Take 1 [facility] 40 mg 0-31 capsule by ity of capsule 00:00: mouth in [place] 00 the Medical morning. Branch lamoTRIgine 2021-07 Yes [id number] 25mg Take 1 [facility] 25 mg 0-31 tablet by ity of tablet 00:00: mouth in [place] 00 the Medical morning. Branch atomoxetine 2021-07 Yes [id number] 40mg Take 1 [facility] 40 mg 0-31 capsule by ity of capsule 00:00: mouth in [place] 00 the Medical morning. Branch lamoTRIgine 2021-07 Yes [id number] 25mg Take 1 [facility] 25 mg 0-31 tablet by ity of tablet 00:00: mouth in [place] 00 the Medical morning. Branch atomoxetine 2021-07 Yes [id number] 40mg Take 1 [facility] 40 mg 0-31 capsule by ity of capsule 00:00: mouth in [place] 00 the Medical morning. Branch lamoTRIgine 2021-07 Yes [id number] 25mg Take 1 [facility] 25 mg 0-31 tablet by ity of tablet 00:00: mouth in [place] the Medical morning. Branch atomoxetine 2021-07 Yes [id number] 40mg Take 1 [facility] 40 mg 0-31 capsule by ity of capsule 00:00: mouth in [place] the Medical morning. Branch lamoTRIgine 2021-07 Yes [id number] 25mg Take 1 [facility] 25 mg 0-31 tablet by ity of tablet 00:00: mouth in [place] the Medical morning. Branch atomoxetine 2021-07 Yes [id number] 40mg Take 1 [facility] 40 mg 0-31 capsule by ity of capsule 00:00: mouth in [place] the Medical morning. Branch lamoTRIgine 2021-07 Yes [id number] 25mg Take 1 [facility] 25 mg 0-31 tablet by [facility] of tablet 00:00: mouth in [place] the Medical morning. Branch atomoxetine 2021-07 Yes [id number] 40mg Take 1 [facility] 40 mg 0-31 capsule by [facility] of capsule 00:00: mouth in [place] the Medical morning. Branch lamoTRIgine 2021-07 Yes [id number] 25mg Take 1 [facility] 25 mg 0-31 tablet by [facility] of tablet 00:00: mouth in [place] the Medical morning. Branch atomoxetine 2021-07 Yes [id number] 40mg Take 1 [facility] 40 mg 0-31 capsule by [facility] of capsule 00:00: mouth in [place] the Medical morning. Branch lamoTRIgine 2021-07 Yes [id number] 25mg Take 1 [facility] 25 mg 0-31 tablet by [facility] of tablet 00:00: mouth in [place] the Medical morning. Branch atomoxetine 2021-07 Yes [id number] 40mg Take 1 [facility] 40 mg 0-31 capsule by ity of capsule 00:00: mouth in [place] the Medical morning. Branch lamoTRIgine 2021-07 Yes [id number] 25mg Take 1 [facility] 25 mg 0-31 tablet by ity of tablet 00:00: mouth in [place] 00 the Medical morning. Branch atomoxetine 2021-07 Yes [id number] 40mg Take 1 [facility] 40 mg 0-31 capsule by [facility] of capsule 00:00: mouth in [place] 00 the Medical morning. Branch lamoTRIgine 2021-07 Yes [id number] 25mg Take 1 [facility] 25 mg 0-31 tablet by it[facility] of tablet 00:00: mouth in [place] 00 the Medical morning. Branch naltrexone 2021-07- No [id number] 50mg Take 1 [facility] 50 mg 0-31 01-30 tablet by ity of tablet 00:00: 05:59 mouth in [place] 00 :00 the Medical morning Branch for 90 days. naltrexone 2021-07- No [id number] 50mg Take 1 [facility] 50 mg 0-31 01-30 tablet by ity of tablet 00:00: 05:59 mouth in [place] 00 :00 the Medical morning Branch for 90 days. naltrexone 2021-07- No [id number] 50mg Take 1 [facility] 50 mg 0-31 01-30 tablet by ity of tablet 00:00: 05:59 mouth in [place] 00 :00 the [facility] morning [place] for 90 days. naltrexone 2021-07- No [id number] 50mg Take 1 [facility] 50 mg 0-31 01-30 tablet by ity of tablet 00:00: 05:59 mouth in [place] 00 :00 the [facility] for 90 days. naltrexone 2021-07- No [id number] 50mg Take 1 [facility] 50 mg 0-31 01-30 tablet by ity of tablet 00:00: 05:59 mouth in [place] 00 :00 the [facility] for 90 days. naltrexone 2021-07- No [id number] 50mg Take 1 [facility] 50 mg 0-31 01-30 tablet by ity of tablet 00:00: 05:59 mouth in [place] 00 :00 the [facility] for 90 days. naltrexone 2021-07- No [id number] 50mg Take 1 [facility] 50 mg 0-31 01-30 tablet by ity of tablet 00:00: 05:59 mouth in [place] 00 :00 the [facility] morning [place] for 90 days. naltrexone 2021-2022- No [id number] 50mg Take 1 [facility] 50 mg 0-31 01-30 tablet by ity of tablet 00:00: 05:59 mouth in [place] 00 :00 the [facility] for 90 days. naltrexone 2021-2022- No [id number] 50mg Take 1 [facility] 50 mg 0-31 01-30 tablet by ity of tablet 00:00: 05:59 mouth in [place] 00 :00 the Medical morning Branch for 90 days. naltrexone 2021-07- No [id number] 50mg Take 1 [facility] 50 mg 0-31 12-12 tablet by ity of tablet 00:00: 00:00 mouth in [place] 00 :00 the Medical morning Branch for 90 days. atomoxetine 2021-07- No [id number] 40mg Take 1 [facility] 40 mg 0-31 12-12 capsule by ity of capsule 00:00: 00:00 mouth in [place] 00 :00 the Medical morning. Branch lamoTRIgine 2021-07- No [id number] 25mg Take 1 [facility] 25 mg 0-31 12-12 tablet by ity of tablet 00:00: 00:00 mouth in [place] 00 :00 the Medical morning. Branch naltrexone 2021-07- No [id number] 50mg Take 1 [facility] 50 mg 0-31 12-12 tablet by ity of tablet 00:00: 00:00 mouth in [place] 00 :00 the Medical morning Branch for 90 days. atomoxetine 2021-07- No [id number] 40mg Take 1 [facility] 40 mg 0-31 12-12 capsule by ity of capsule 00:00: 00:00 mouth in [place] 00 :00 the Medical morning. Branch lamoTRIgine 2021-07- No [id number] 25mg Take 1 [facility] 25 mg 0-31 12-12 tablet by ity of tablet 00:00: 00:00 mouth in [place] 00 :00 the Medical morning. Branch naltrexone 2021-07- No [id number] 50mg Take 1 [facility] 50 mg 0-31 12-12 tablet by ity of tablet 00:00: 00:00 mouth in [place] 00 :00 the Medical morning Branch for 90 days. atomoxetine 2021-07- No [id number] 40mg Take 1 [facility] 40 mg 0-31 12-12 capsule by ity of capsule 00:00: 00:00 mouth in [place] 00 :00 the Medical morning. Branch lamoTRIgine 2021-07- No [id number] 25mg Take 1 [facility] 25 mg 0-31 12-12 tablet by ity of tablet 00:00: 00:00 mouth in [place] 00 :00 the Medical morning. Branch naltrexone 2021-07- No [id number] 50mg Take 1 [facility] 50 mg 0-31 12-12 tablet by ity of tablet 00:00: 00:00 mouth in [place] 00 :00 the Medical morning Branch for 90 days. atomoxetine 2021-07- No [id number] 40mg Take 1 [facility] 40 mg 0-31 12-12 capsule by ity of capsule 00:00: 00:00 mouth in [place] 00 :00 the Medical morning. Branch lamoTRIgine 2021-07- No [id number] 25mg Take 1 [facility] 25 mg 0-31 12-12 tablet by ity of tablet 00:00: 00:00 mouth in [place] 00 :00 the Medical morning. Branch naltrexone 2021-07- No [id number] 50mg Take 1 [facility] 50 mg 0-31 12-12 tablet by ity of tablet 00:00: 00:00 mouth in [place] 00 :00 the Medical morning Branch for 90 days. atomoxetine 2021-07- No [id number] 40mg Take 1 [facility] 40 mg 0-31 12-12 capsule by ity of capsule 00:00: 00:00 mouth in [place] 00 :00 the Medical morning. Branch lamoTRIgine 2021-07- No [id number] 25mg Take 1 [facility] 25 mg 0-31 12-12 tablet by ity of tablet 00:00: 00:00 mouth in [place] 00 :00 the Medical morning. Branch ARIPiprazol 2021-07- No [id number] 300mg [facility] e (ABILIFY 0-20 10-20 ity of MAINTENA) 15:15: 15:46 [place] injection 00 :00 Medical SSRR 300 mg Branch ARIPiprazol 2021-07- No [id number] 300mg [facility] e (ABILIFY 0-20 10-20 ity of MAINTENA) 15:15: 15:46 [place] injection 00 :00 Medical SSRR 300 mg Branch ARIPiprazol 2021-07- No [id number] 300mg [facility] e (ABILIFY 0-20 10-20 ity of MAINTENA) 15:15: 15:46 [place] injection 00 :00 Medical SSRR 300 mg [place] ARIPiprazol 2021-07- No [id number] 300mg [facility] e (ABILIFY 0-20 10-20 ity of MAINTENA) 15:15: 15:46 [place] injection 00 :00 Medical SSRR 300 mg Branch ARIPiprazol 2021-072- No [id number] 300mg [facility] e (ABILIFY 0-20 10-20 ity of MAINTENA) 15:15: 15:46 [place] injection 00 :00 Medical SSRR 300 mg Branch ARIPiprazol 2021-072- No [id number] 300mg [facility] e (ABILIFY 0-20 10-20 ity of MAINTENA) 15:15: 15:46 [place] injection 00 :00 Medical SSRR 300 mg Branch ARIPiprazol 2021-07- No [id number] 300mg [facility] e (ABILIFY 0-19 10-20 ity of MAINTENA) 15:45: 03:44 [place] injection 00 :00 Medical SSRR 300 mg Branch lamoTRIgine 2021-1 Yes 25mg Take 1 [facility] ers 25 mg 0-18 tablet by ity of tablet 00:00: mouth in [place] the Medical morning. Branch lamoTRIgine 2021-1 Yes 25mg Take 1 [facility] ers 25 mg 0-18 tablet by ity of tablet 00:00: mouth in [place] the Medical morning. Branch lamoTRIgine 2021-1 Yes 25mg Take 1 [facility] ers 25 mg 0-18 tablet by ity of tablet 00:00: mouth in [place] the Medical morning. Branch lamoTRIgine 2021-1 Yes 25mg Take 1 [facility] ers 25 mg 0-18 tablet by ity of tablet 00:00: mouth in [place] the Medical morning. Branch lamoTRIgine 2-1 Yes 25mg Take 1 [facility] ers 25 mg 0-18 tablet by ity of tablet 00:00: mouth in [place] the Medical morning. Branch lamoTRIgine 2-1 Yes 25mg Take 1 [facility] ers 25 mg 0-18 tablet by ity of tablet 00:00: mouth in [place] the Medical morning. Branch lamoTRIgine 2-1 Yes 25mg Take 1 [facility] ers 25 mg 0-18 tablet by ity of tablet 00:00: mouth in [place] 00 the Medical morning. Branch lamoTRIgine 2-1 Yes 25mg Take 1 [facility] ers 25 mg 0-18 tablet by ity of tablet 00:00: mouth in [place] 00 the Medical morning. Branch lamoTRIgine 2021-1 Yes 25mg Take 1 [facility] ers 25 mg 0-18 tablet by ity of tablet 00:00: mouth in [place] 00 the Medical morning. Branch lamoTRIgine 2-1 Yes 25mg Take 1 [facility] ers 25 mg 0-18 tablet by ity of tablet 00:00: mouth in [place] 00 the Medical morning. Branch lamoTRIgine 2-1 Yes 25mg Take 1 [facility] ers 25 mg 0-18 tablet by ity of tablet 00:00: mouth in [place] 00 the Medical morning. Branch lamoTRIgine 2-1 Yes 25mg Take 1 [facility] ers 25 mg 0-18 tablet by ity of tablet 00:00: mouth in [place] 00 the Medical morning. Branch lamoTRIgine 2021-2- No 25mg Take 1 [facility] vers 25 mg 0-18 10-31 tablet by ity of tablet 00:00: 00:00 mouth in [place] 00 :00 the Medical morning. Branch lamoTRIgine 2021- 2022- No 25mg Take 1 [facility] vers 25 mg 0-18 10-31 tablet by ity of tablet 00:00: 00:00 mouth in [place] 00 :00 the Medical morning. Branch lamoTRIgine 2021- 2022- No 25mg Take 1 [facility] vers 25 mg 0-18 10-31 tablet by ity of tablet 00:00: 00:00 mouth in [place] 00 :00 the Medical morning. Branch lamoTRIgine 2021-2- No 25mg Take 1 [facility] vers 25 mg 0-18 10-31 tablet by ity of tablet 00:00: 00:00 mouth in [place] 00 :00 the Medical morning. Branch atomoxetine 2021- Yes [id number] 40mg Take 1 [facility] 40 mg 0-13 capsule by ity of capsule 00:00: mouth in [place] 00 the Medical morning. Branch atomoxetine 2021-1 Yes [id number] 40mg Take 1 [facility] 40 mg 0-13 capsule by ity of capsule 00:00: mouth in [place] 00 the Medical morning. Branch atomoxetine 2021-1 Yes [id number] 40mg Take 1 [facility] 40 mg 0-13 capsule by ity of capsule 00:00: mouth in [place] 00 the Medical morning. Branch atomoxetine 2021- Yes [id number] 40mg Take 1 [facility] 40 mg 0-13 capsule by ity of capsule 00:00: mouth in [place] 00 the Medical morning. Branch atomoxetine 2021-07 Yes [id number] 40mg Take 1 [facility] 40 mg 0-13 capsule by ity of capsule 00:00: mouth in [place] the Medical morning. Branch atomoxetine 2021-07 Yes [id number] 40mg Take 1 [facility] 40 mg 0-13 capsule by ity of capsule 00:00: mouth in [place] the Medical morning. Branch atomoxetine 2021-07 Yes [id number] 40mg Take 1 [facility] 40 mg 0-13 capsule by ity of capsule 00:00: mouth in [place] the Medical morning. Branch atomoxetine 2021-07 Yes [id number] 40mg Take 1 [facility] 40 mg 0-13 capsule by ity of capsule 00:00: mouth in [place] the Medical morning. Branch atomoxetine 2021-07 Yes [id number] 40mg Take 1 [facility] 40 mg 0-13 capsule by ity of capsule 00:00: mouth in [place] the Medical morning. Branch atomoxetine 2021-07 Yes [id number] 40mg Take 1 [facility] 40 mg 0-13 capsule by ity of capsule 00:00: mouth in [place] the Medical morning. Branch atomoxetine 2021-07 Yes [id number] 40mg Take 1 [facility] 40 mg 0-13 capsule by ity of capsule 00:00: mouth in [place] the Medical morning. Branch atomoxetine 2021-07 Yes [id number] 40mg Take 1 [facility] 40 mg 0-13 capsule by ity of capsule 00:00: mouth in [place] the Medical morning. Branch atomoxetine 2021-07 Yes [id number] 40mg Take 1 [facility] 40 mg 0-13 capsule by ity of capsule 00:00: mouth in [place] the Medical morning. Branch atomoxetine 2021-07 Yes [id number] 40mg Take 1 [facility] 40 mg 0-13 capsule by ity of capsule 00:00: mouth in [place] the Medical morning. Branch atomoxetine 2021- Yes [id number] 40mg Take 1 [facility] 40 mg 0-13 capsule by ity of capsule 00:00: mouth in [place] the Medical morning. Branch atomoxetine 2021- Yes [id number] 40mg Take 1 [facility] 40 mg 0-13 capsule by ity of capsule 00:00: mouth in [place] 00 the Medical morning. Branch atomoxetine 2021- Yes [id number] 40mg Take 1 [facility] 40 mg 0-13 capsule by ity of capsule 00:00: mouth in [place] 00 the Medical morning. Branch atomoxetine 2021-07 Yes [id number] 40mg Take 1 [facility] 40 mg 0-13 capsule by ity of capsule 00:00: mouth in [place] 00 the Medical morning. Branch atomoxetine 2021-07- No [id number] 40mg Take 1 [facility] 40 mg 0-13 10-31 capsule by ity of capsule 00:00: 00:00 mouth in [place] 00 :00 the Medical morning. Branch atomoxetine 2021-07- No [id number] 40mg Take 1 [facility] 40 mg 0-13 10-31 capsule by ity of capsule 00:00: 00:00 mouth in [place] 00 :00 the Medical morning. Branch atomoxetine 2021-07- No [id number] 40mg Take 1 [facility] 40 mg 0-13 10-31 capsule by ity of capsule 00:00: 00:00 mouth in [place] 00 :00 the Medical morning. Branch atomoxetine 2021-07- No [id number] 40mg Take 1 [facility] 40 mg 0-13 10-31 capsule by ity of capsule 00:00: 00:00 mouth in [place] 00 :00 the Medical morning. Branch NaCl [...] by ity of capsule 00:00: mouth in [place] 00 the Medical morning. Branch lamoTRIgine 2021- Yes 25mg Take 1 [facility] ers 25 mg 0-07 tablet by ity of tablet 00:00: mouth in [place] 00 the Medical morning. Branch atomoxetine 2021-07 Yes 40mg Take 1 [facility] ers 40 mg 0-07 capsule by ity of capsule 00:00: mouth in [place] 00 the Medical morning. Branch lamoTRIgine 2021- Yes 25mg Take 1 [facility] ers 25 mg 0-07 tablet by ity of tablet 00:00: mouth in [place] 00 the Medical morning. Branch atomoxetine 2021-07 Yes 40mg Take 1 [facility] ers 40 mg 0-07 capsule by ity of capsule 00:00: mouth in [place] the Medical morning. Branch lamoTRIgine 2021-07 Yes 25mg Take 1 [facility] ers 25 mg 0-07 tablet by ity of tablet 00:00: mouth in [place] the Medical morning. Branch atomoxetine 2021- Yes 40mg Take 1 [facility] ers 40 mg 0-07 capsule by ity of capsule 00:00: mouth in [place] the Medical morning. Branch lamoTRIgine 2021- Yes 25mg Take 1 [facility] ers 25 mg 0-07 tablet by ity of tablet 00:00: mouth in [place] the Medical morning. Branch lamoTRIgine 2021- Yes 25mg Take 1 [facility] ers 25 mg 0-07 tablet by ity of tablet 00:00: mouth in [place] the Medical morning. Branch lamoTRIgine 2021- Yes 25mg Take 1 [facility] ers 25 mg 0-07 tablet by ity of tablet 00:00: mouth in [place] the Medical morning. Branch lamoTRIgine 2021- Yes 25mg Take 1 [facility] ers 25 mg 0-07 tablet by ity of tablet 00:00: mouth in [place] the Medical morning. Branch lamoTRIgine 2021- Yes 25mg Take 1 [facility] ers 25 mg 0-07 tablet by ity of tablet 00:00: mouth in [place] the Medical morning. Branch lamoTRIgine 2021- Yes 25mg Take 1 [facility] ers 25 mg 0-07 tablet by ity of tablet 00:00: mouth in [place] the Medical morning. Branch lamoTRIgine 2021- Yes 25mg Take 1 [facility] ers 25 mg 0-07 tablet by ity of tablet 00:00: mouth in [place] the Medical morning. Branch polyethylen 2021-07- No [id number] 17g Take 1 [facility] e glycol 0-07 11-07 Packet by ity o f 3350 17 00:00: 05:59 mouth in [place] gram powder 00 :00 the Medical morning Branch for 30 days. polyethylen 2021-2021- No [id number] 17g Take 1 [facility] e glycol 0-07 11-07 Packet by ity o f 3350 17 00:00: 05:59 mouth in [place] gram powder 00 :00 the Medical morning Branch for 30 days. polyethylen 2021-07- No [id number] 17g Take 1 [facility] e glycol 0-07 11-07 Packet by ity o f 3350 17 00:00: 05:59 mouth in [place] gram powder 00 :00 the [facility] morning Branch for 30 days. polyethylen 2021-07- No [id number] 17g Take 1 [facility] e glycol 0-07 11-07 Packet by ity o f 3350 17 00:00: 05:59 mouth in [place] gram powder 00 :00 the [facility] morning Branch for 30 days. polyethylen 2021-07- No [id number] 17g Take 1 [facility] e glycol 0-07 11-07 Packet by ity o f 3350 17 00:00: 05:59 mouth in [place] gram powder 00 :00 the [facility] morning Branch for 30 days. polyethylen 2021-07- No [id number] 17g Take 1 [facility] e glycol 0-07 11-07 Packet by ity o f 3350 17 00:00: 05:59 mouth in [place] gram powder 00 :00 the [facility] morning Branch for 30 days. polyethylen 2021-07- No [id number] 17g Take 1 [facility] e glycol 0-07 11-07 Packet by ity o f 3350 17 00:00: 05:59 mouth in [place] gram powder 00 :00 the [facility] morning Branch for 30 days. polyethylen 2021-07- No [id number] 17g Take 1 [facility] e glycol 0-07 11-07 Packet by ity o f 3350 17 00:00: 05:59 mouth in [place] gram powder 00 :00 the [facility] morning Branch for 30 days. polyethylen 2021-07- No [id number] 17g Take 1 [facility] e glycol 0-07 11-07 Packet by ity o f 3350 17 00:00: 05:59 mouth in [place] gram powder 00 :00 the Medical morning Branch for 30 days. polyethylen 2021-07- No [id number] 17g Take 1 [facility] e glycol 0-07 11-07 Packet by ity o f 3350 17 00:00: 05:59 mouth in [place] gram powder 00 :00 the Medical morning Branch for 30 days. polyethylen 2021-07- No [id number] 17g Take 1 [facility] e glycol 0-07 11-07 Packet by ity o f 3350 17 00:00: 05:59 mouth in [place] gram powder 00 :00 the Medical morning Branch for 30 days. polyethylen 2021-07- No [id number] 17g Take 1 [facility] e glycol 0-07 11-07 Packet by ity o f 3350 17 00:00: 05:59 mouth in [place] gram powder 00 :00 the Medical morning Branch for 30 days. polyethylen 2021-07- No [id number] 17g Take 1 [facility] e glycol 0-07 11-07 Packet by ity o f 3350 17 00:00: 05:59 mouth in [place] gram powder 00 :00 the Medical morning Branch for 30 days. polyethylen 2021-07- No [id number] 17g Take 1 [facility] e glycol 0-07 11-07 Packet by ity o f 3350 17 00:00: 05:59 mouth in [place] gram powder 00 :00 the Medical morning Branch for 30 days. polyethylen 2021-07- No [id number] 17g Take 1 [facility] e glycol 0-07 11-07 Packet by ity o f 3350 17 00:00: 05:59 mouth in [place] gram powder 00 :00 the Medical morning Branch for 30 days. polyethylen 2021-07- No [id number] 17g Take 1 [facility] e glycol 0-07 11-07 Packet by ity o f 3350 17 00:00: 05:59 mouth in [place] gram powder 00 :00 the Medical morning Branch for 30 days. polyethylen 2021-07- No [id number] 17g Take 1 [facility] e glycol 0-07 11-07 Packet by ity o f 3350 17 00:00: 05:59 mouth in [place] gram powder 00 :00 the Medical morning Branch for 30 days. polyethylen 2021-07- No [id number] 17g Take 1 [facility] e glycol 0-07 11-07 Packet by ity o f 3350 17 00:00: 05:59 mouth in [place] gram powder 00 :00 the Medical morning Branch for 30 days. polyethylen 2021-07- No [id number] 17g Take 1 [facility] e glycol 0-07 11-07 Packet by ity o f 3350 17 00:00: 05:59 mouth in [place] gram powder 00 :00 the [facility] for 30 days. polyethylen 2021-07- No [id number] 17g Take 1 [facility] e glycol 0-07 11-07 Packet by ity o f 3350 17 00:00: 05:59 mouth in [place] gram powder 00 :00 the [facility] for 30 days. polyethylen 2021-07- No [id number] 17g Take 1 [facility] e glycol 0-07 11-07 Packet by ity o f 3350 17 00:00: 05:59 mouth in [place] gram powder 00 :00 the [facility] for 30 days. polyethylen 2021-07- No [id number] 17g Take 1 [facility] e glycol 0-07 11-07 Packet by ity o f 3350 17 00:00: 05:59 mouth in [place] gram powder 00 :00 the [facility] for 30 days. polyethylen 2021-07- No [id number] 17g Take 1 [facility] e glycol 0-07 11-07 Packet by ity o f 3350 17 00:00: 05:59 mouth in [place] gram powder 00 :00 the [facility] for 30 days. polyethylen 2021-07- No [id number] 17g Take 1 [facility] e glycol 0-07 11-07 Packet by ity o f 3350 17 00:00: 05:59 mouth in [place] gram powder 00 :00 the [facility] for 30 days. polyethylen 2021-07- No [id number] 17g Take 1 [facility] e glycol 0-07 11-07 Packet by ity o f 3350 17 00:00: 05:59 mouth in [place] gram powder 00 :00 the [facility] for 30 days. polyethylen 2021-07- No [id number] 17g Take 1 [facility] e glycol 0-07 11-07 Packet by ity o f 3350 17 00:00: 05:59 mouth in [place] gram powder 00 :00 the [facility] for 30 days. lamoTRIgine 2021-07- No 25mg Take 1 [facility] vers 25 mg 0-07 10-18 tablet by ity of tablet 00:00: 00:00 mouth in [place] 00 :00 the [facility]. Branch lamoTRIgine 2021-07- No 25mg Take 1 [facility] vers 25 mg 0-07 10-18 tablet by ity of tablet 00:00: 00:00 mouth in [place] 00 :00 the Medical morning. Branch lamoTRIgine 2021-2021- No 25mg Take 1 [facility] vers 25 mg 0-07 10-18 tablet by ity of tablet 00:00: 00:00 mouth in [place] 00 :00 the Medical morning. Branch lamoTRIgine 2021-2021- No 25mg Take 1 [facility] vers 25 mg 0-07 10-18 tablet by ity of tablet 00:00: 00:00 mouth in [place] 00 :00 the Medical morning. Branch lamoTRIgine 2021-2021- No 25mg Take 1 [facility] vers 25 mg 0-07 10-18 tablet by ity of tablet 00:00: 00:00 mouth in [place] 00 :00 the Medical morning. Branch lamoTRIgine 2021-2021- No 25mg Take 1 [facility] vers 25 mg 0-07 10-18 tablet by ity of tablet 00:00: 00:00 mouth in [place] 00 :00 the Medical morning. Branch lamoTRIgine 2021-2021- No 25mg Take 1 [facility] vers 25 mg 0-07 10-18 tablet by ity of tablet 00:00: 00:00 mouth in [place] 00 :00 the Medical morning. Branch lamoTRIgine 2021-2021- No 25mg Take 1 [facility] vers 25 mg 0-07 10-18 tablet by ity of tablet 00:00: 00:00 mouth in [place] 00 :00 the Medical morning. Branch lamoTRIgine 2021-2021- No 25mg Take 1 [facility] vers 25 mg 0-07 10-18 tablet by ity of tablet 00:00: 00:00 mouth in [place] 00 :00 the Medical morning. Branch lamoTRIgine 2021-2- No 25mg Take 1 [facility] vers 25 mg 0-07 10-18 tablet by ity of tablet 00:00: 00:00 mouth in [place] 00 :00 the Medical morning. Branch lamoTRIgine 2021-2021- No 25mg Take 1 [facility] vers 25 mg 0-07 10-18 tablet by ity of tablet 00:00: 00:00 mouth in [place] 00 :00 the Medical morning. Branch tamsulosin 2021-07- No [id number] .4mg Take 1 [facility] 0.4 mg 24 0-07 10-15 capsule by ity of hr capsule 00:00: 04:59 mouth in [place] 00 :00 the [facility] morning Branch for 7 days. tamsulosin 2021-07- No [id number] .4mg Take 1 [facility] 0.4 mg 24 0-07 10-15 capsule by ity of hr capsule 00:00: 04:59 mouth in [place] 00 :00 the [facility] morning Branch for 7 days. tamsulosin 2021-07- No [id number] .4mg Take 1 [facility] 0.4 mg 24 0-07 10-15 capsule by ity of hr capsule 00:00: 04:59 mouth in [place] 00 :00 the [facility] morning Branch for 7 days. tamsulosin 2021-07- No [id number] .4mg Take 1 [facility] 0.4 mg 24 0-07 10-15 capsule by ity of hr capsule 00:00: 04:59 mouth in [place] 00 :00 the [facility] morning Branch for 7 days. tamsulosin 2021-07- No [id number] .4mg Take 1 [facility] 0.4 mg 24 0-07 10-15 capsule by ity of hr capsule 00:00: 04:59 mouth in [place] 00 :00 the [facility] morning Branch for 7 days. tamsulosin 2021-07- No [id number] .4mg Take 1 [facility] 0.4 mg 24 0-07 10-15 capsule by ity of hr capsule 00:00: 04:59 mouth in [place] 00 :00 the [facility] morning Branch for 7 days. tamsulosin 2021-07 No [id number] .4mg Take 1 [facility] 0.4 mg 24 0-07 10-15 capsule by ity of hr capsule 00:00: 04:59 mouth in [place] 00 :00 the [facility] morning Branch for 7 days. tamsulosin 2021-07- No [id number] .4mg Take 1 [facility] 0.4 mg 24 0-07 10-15 capsule by ity of hr capsule 00:00: 04:59 mouth in [place] 00 :00 the [facility] morning Branch for 7 days. tamsulosin 2021-07- No [id number] .4mg Take 1 [facility] 0.4 mg 24 0-07 10-15 capsule by ity of hr capsule 00:00: 04:59 mouth in [place] 00 :00 the Medical morning Branch for 7 days. tamsulosin 2021-07- No [id number] .4mg Take 1 [facility] 0.4 mg 24 0-07 10-15 capsule by ity of hr capsule 00:00: 04:59 mouth in [place] 00 :00 the [facility] morning Branch for 7 days. tamsulosin 2021-07- No [id number] .4mg Take 1 [facility] 0.4 mg 24 0-07 10-15 capsule by ity of hr capsule 00:00: 04:59 mouth in [place] 00 :00 the [facility] morning Branch for 7 days. tamsulosin 2021-07- No [id number] .4mg Take 1 [facility] 0.4 mg 24 0-07 10-15 capsule by ity of hr capsule 00:00: 04:59 mouth in [place] 00 :00 the [facility] morning Branch for 7 days. tamsulosin 2021-07- No [id number] .4mg Take 1 [facility] 0.4 mg 24 0-07 10-15 capsule by ity of hr capsule 00:00: 04:59 mouth in [place] 00 :00 the [facility] morning Branch for 7 days. tamsulosin 2021-07- No [id number] .4mg Take 1 [facility] 0.4 mg 24 0-07 10-15 capsule by ity of hr capsule 00:00: 04:59 mouth in [place] 00 :00 the [facility] morning Branch for 7 days. tamsulosin 2021-07 No [id number] .4mg Take 1 [facility] 0.4 mg 24 0-07 10-15 capsule by ity of hr capsule 00:00: 04:59 mouth in [place] 00 :00 the [facility] morning Branch for 7 days. tamsulosin 2021-07 No [id number] .4mg Take 1 [facility] 0.4 mg 24 0-07 10-15 capsule by ity of hr capsule 00:00: 04:59 mouth in [place] 00 :00 the [facility] morning Branch for 7 days. tamsulosin 2021-07- No [id number] .4mg Take 1 [facility] 0.4 mg 24 0-07 10-15 capsule by ity of hr capsule 00:00: 04:59 mouth in [place] 00 :00 the Medical morning Branch for 7 days. tamsulosin 2021-07- No [id number] .4mg Take 1 [facility] 0[facility]4 mg 24 0-07 10-15 capsule by [facility] capsule 00:00: 04:59 mouth in [place] 00 :00 the Medical morning Branch for 7 days. tamsulosin 2021-07- No [id number] .4mg Take 1 [facility] 0.4 mg 24 0-07 10-15 capsule by [facility] capsule 00:00: 04:59 mouth in [place] 00 :00 the Medical morning Branch for 7 days. tamsulosin 2021-07- No [id number] .4mg Take 1 [facility] 0.4 mg 24 0-07 10-15 capsule by [facility] capsule 00:00: 04:59 mouth in [place] 00 :00 the Medical morning Branch for 7 days. tamsulosin 2021-07- No [id number] .4mg Take 1 [facility] 0.4 mg 24 0-07 10-15 capsule by [facility] capsule 00:00: 04:59 mouth in [place] 00 :00 the Medical morning Branch for 7 days. atomoxetine 2021-07- No 40mg Take 1 [facility] vers 40 mg 0-07 10-13 capsule by [facility] capsule 00:00: 00:00 mouth in [place] 00 :00 the Medical morning. Branch atomoxetine 2021-07- No 40mg Take 1 [facility] vers 40 mg 0-07 10-13 capsule by [facility] capsule 00:00: 00:00 mouth in [place] 00 :00 the Medical morning. Branch atomoxetine 2021-07- No 40mg Take 1 [facility] vers 40 mg 0-07 10-13 capsule by [facility] capsule 00:00: 00:00 mouth in [place] 00 :00 the Medical morning. Branch atomoxetine 2021-07- No 40mg Take 1 [facility] vers 40 mg 0-07 10-13 capsule by [facility] capsule 00:00: 00:00 mouth in [place] 00 :00 the Medical morning. Branch atomoxetine 2021-07- No 40mg Take 1 [facility] vers 40 mg 0-07 10-13 capsule by [facility] capsule 00:00: 00:00 mouth in [place] 00 :00 the Medical morning. Branch atomoxetine 2021-2- No 40mg Take 1 [facility] vers 40 mg 0-07 10-13 capsule by [facility] capsule 00:00: 00:00 mouth in [place] 00 :00 the Medical morning. Branch atomoxetine 2021-2- No 40mg Take 1 [facility] vers 40 mg 0-07 10-13 capsule by [facility] capsule 00:00: 00:00 mouth in [place] 00 :00 the Medical morning. Branch atomoxetine 2021-2- No 40mg Take 1 [facility] vers 40 mg 0-07 10-13 capsule by [facility] capsule 00:00: 00:00 mouth in [place] 00 :00 the Medical morning. Branch atomoxetine 2021-2021- No 40mg Take 1 [facility] vers 40 mg 0-07 10-13 capsule by [facility] capsule 00:00: 00:00 mouth in [place] 00 :00 the Medical morning. Branch atomoxetine 2021-2021- No 40mg Take 1 [facility] vers 40 mg 0-07 10-13 capsule by [facility] capsule 00:00: 00:00 mouth in [place] 00 :00 the Medical morning. Branch atomoxetine 2021-2- No 40mg Take 1 [facility] vers 40 mg 0-07 10-13 capsule by [facility] capsule 00:00: 00:00 mouth in [place] 00 :00 the Medical morning. Branch atomoxetine 2021-2- No 40mg Take 1 [facility] vers 40 mg 0-07 10-13 capsule by [facility] capsule 00:00: 00:00 mouth in [place] 00 :00 the Medical morning. Branch atomoxetine 2021-2- No 40mg Take 1 [facility] vers 40 mg 0-07 10-13 capsule by [facility] capsule 00:00: 00:00 mouth in [place] 00 :00 the Medical morning. Branch atomoxetine 2-2- No 40mg Take 1 [facility] vers 40 mg 0-07 10-13 capsule by [facility] capsule 00:00: 00:00 mouth in [place] 00 :00 the Medical morning. Branch atomoxetine 2-2- No 40mg Take 1 [facility] vers 40 mg 0-07 10-13 capsule by [facility] capsule 00:00: 00:00 mouth in [place] 00 :00 the Medical morning. Branch atomoxetine 2021-07- No 40mg Take 1 [facility] vers 40 mg 0-07 10-13 capsule by [facility] capsule 00:00: 00:00 mouth in [place] 00 :00 the Medical morning. Branch atomoxetine 2021-07- No 40mg Take 1 [facility] vers 40 mg 0-07 10-13 capsule by [facility] capsule 00:00: 00:00 mouth in [place] 00 :00 the Medical morning. Branch traZODone 2021-07 Yes 50mg 50 mg, [facility] (DESYREL) 0-06 Oral, QHS, [facility] of tablet 50 02:00: First dose [place] mg 00 on Mon04/06/22 at [place] 2100, Until Discontinu ed, Routine acetaminoph 2021-07 Yes [id number] 1000mg Take 2 [facility] en 500 mg 0-06 tablets by [facility] tablet 00:00: mouth [place] 00 every 8 Medical (eight) Branch hours as needed for Pain. traZODone 2021-07 Yes 50mg Take 1 [facility] 50 mg 0-06 tablet by [facility] tablet 00:00: mouth at [place] 00 bedtime. Medical Branch methocarbam 2021-07 Yes [id number] 500mg Take 1 [facility] oL 500 mg 0-06 tablet by [facility] o f tablet 00:00: mouth 4 [place] [address] (four) Medical times Branch daily as needed (muscle spasms). ibuprofen 2021-07 Yes [id number] 600mg Take 1 [facility] 600 mg 0-06 tablet by [facility] tablet 00:00: mouth [place] 00 every 6 Medical (six) Branch hours as needed for Pain (scale 4-6). acetaminoph 2021-07 Yes [id number] 1000mg Take 2 [facility] en 500 mg 0-06 tablets by [facility] tablet 00:00: mouth [place] 00 every 8 Medical (eight) Branch hours as needed for Pain. traZODone 2021-07 Yes 50mg Take 1 [facility] 50 mg 0-06 tablet by [facility] tablet 00:00: mouth at [place] [address] bedtime. Medical Branch methocarbam 2021-07 Yes [id number] 500mg Take 1 [facility] oL 500 mg 0-06 tablet by [facility] o f tablet 00:00: mouth 4 [place] 00 (four) Medical times Branch daily as needed (muscle spasms). ibuprofen 2021-07 Yes [id number] 600mg Take 1 [facility] 600 mg 0-06 tablet by [facility] tablet 00:00: mouth [place] 00 every 6 Medical (six) Branch hours as needed for Pain (scale 4-6). acetaminoph 2021-07 Yes [id number] 1000mg Take 2 [facility] en 500 mg 0-06 tablets by [facility] tablet 00:00: mouth [place] 00 every 8 Medical (eight) Branch hours as needed for Pain. traZODone 2021-07 Yes 50mg Take 1 [facility] 50 mg 0-06 tablet by [facility] tablet 00:00: mouth at [place] 00 bedtime. Medical Branch methocarbam 2021-07 Yes [id number] 500mg Take 1 [facility] oL 500 mg 0-06 tablet by [facility] o f tablet 00:00: mouth 4 00 (four) Medical times Branch daily as needed (muscle spasms). ibuprofen 2021-07 Yes [id number] 600mg Take 1 [facility] 600 mg 0-06 tablet by [facility] tablet 00:00: mouth [place] 00 every 6 Medical (six) Branch hours as needed for Pain (scale 4-6). acetaminoph 2021-07 Yes [id number] 1000mg Take 2 [facility] en 500 mg 0-06 tablets by [facility] tablet 00:00: mouth [place] 00 every 8 Medical (eight) Branch hours as needed for Pain. traZODone 2021-07 Yes 50mg Take 1 [facility] 50 mg 0-06 tablet by [facility] tablet 00:00: mouth at [place] 00 bedtime. Medical Branch methocarbam 2021-07 Yes [id number] 500mg Take 1 [facility] oL 500 mg 0-06 tablet by [facility] o f tablet 00:00: mouth 4 [place] 00 (four) Medical times Branch daily as needed (muscle spasms). ibuprofen 2021-07 Yes [id number] 600mg Take 1 [facility] 600 mg 0-06 tablet by [facility] tablet 00:00: mouth [place] 00 every 6 Medical (six) Branch hours as needed for Pain (scale 4-6). acetaminoph 2021-07 Yes [id number] 1000mg Take 2 [facility] en 500 mg 0-06 tablets by [facility] tablet 00:00: mouth [place] 00 every 8 Medical (eight) Branch hours as needed for Pain. traZODone 2021-07 Yes 50mg Take 1 [facility] 50 mg 0-06 tablet by [facility] tablet 00:00: mouth at [place] 00 bedtime. Medical Branch methocarbam 2021-07 Yes [id number] 500mg Take 1 [facility] oL 500 mg 0-06 tablet by [facility] o f tablet 00:00: mouth 4 [place] 00 (four) Medical times Branch daily as needed (muscle spasms). ibuprofen 2021-07 Yes [id number] 600mg Take 1 [facility] 600 mg 0-06 tablet by [facility] tablet 00:00: mouth [place] 00 every 6 Medical (six) Branch hours as needed for Pain (scale 4-6). acetaminoph 2021-07 Yes [id number] 1000mg Take 2 [facility] en 500 mg 0-06 tablets by [facility] tablet 00:00: mouth [place] 00 every 8 Medical (eight) Branch hours as needed for Pain. traZODone 2021-07 Yes 50mg Take 1 [facility] 50 mg 0-06 tablet by [facility] tablet 00:00: mouth at [place] 00 bedtime. Medical Branch methocarbam 2021-07 Yes [id number] 500mg Take 1 [facility] oL 500 mg 0-06 tablet by [facility] o f tablet 00:00: mouth 00 (four) Medical times Branch daily as needed (muscle spasms). ibuprofen 2021-07 Yes [id number] 600mg Take 1 [facility] 600 mg 0-06 tablet by [facility] tablet 00:00: mouth [place] 00 every 6 Medical (six) Branch hours as needed for Pain (scale 4-6). acetaminoph 2021-07 Yes [id number] 1000mg Take 2 [facility] en 500 mg 0-06 tablets by [facility] tablet 00:00: mouth [place] 00 every 8 Medical (eight) Branch hours as needed for Pain. traZODone 2021-07 Yes 50mg Take 1 [facility] 50 mg 0-06 tablet by [facility] tablet 00:00: mouth at [place] 00 bedtime. Medical Branch methocarbam 2021-07 Yes [id number] 500mg Take 1 [facility] oL 500 mg 0-06 tablet by [facility] o f tablet 00:00: mouth 4 00 (four) Medical times Branch daily as needed (muscle spasms). ibuprofen 2021-07 Yes [id number] 600mg Take 1 [facility] 600 mg 0-06 tablet by [facility] tablet 00:00: mouth [place] 00 every 6 Medical (six) Branch hours as needed for Pain (scale 4-6). acetaminoph 2021-07 Yes [id number] 1000mg Take 2 [facility] en 500 mg 0-06 tablets by [facility] tablet 00:00: mouth [place] 00 every 8 Medical (eight) Branch hours as needed for Pain. traZODone 2021-07 Yes 50mg Take 1 [facility] 50 mg 0-06 tablet by [facility] tablet 00:00: mouth at [place] 00 bedtime. Medical Branch methocarbam 2021-07 Yes [id number] 500mg Take 1 [facility] oL 500 mg 0-06 tablet by [facility] o f tablet 00:00: mouth (four) Medical times Branch daily as needed (muscle spasms). ibuprofen 2021-07 Yes [id number] 600mg Take 1 [facility] 600 mg 0-06 tablet by [facility] tablet 00:00: mouth 00 every 6 Medical (six) Branch hours as needed for Pain (scale 4-6). acetaminoph 2021-07 Yes [id number] 1000mg Take 2 [facility] en 500 mg 0-06 tablets by [facility] of tablet 00:00: mouth [place] 00 every 8 Medical (eight) Branch hours as needed for Pain. traZODone 2021-07 Yes 50mg Take 1 [facility] 50 mg 0-06 tablet by [facility] tablet 00:00: mouth at 00 bedtime. Medical Branch methocarbam 2021-07 Yes [id number] 500mg Take 1 [facility] oL 500 mg 0-06 tablet by [facility] o f tablet 00:00: mouth (four) Medical times Branch daily as needed (muscle spasms). ibuprofen 2021-07 Yes [id number] 600mg Take 1 [facility] 600 mg 0-06 tablet by [facility] tablet 00:00: mouth [place] 00 every 6 Medical (six) Branch hours as needed for Pain (scale 4-6). acetaminoph 2021-07 Yes [id number] 1000mg Take 2 [facility] en 500 mg 0-06 tablets by [facility] tablet 00:00: mouth [place] 00 every 8 Medical (eight) Branch hours as needed for Pain. traZODone 2021-07 Yes 50mg Take 1 [facility] 50 mg 0-06 tablet by [facility] tablet 00:00: mouth at [place] 00 bedtime. Medical Branch methocarbam 2021-07 Yes [id number] 500mg Take 1 [facility] oL 500 mg 0-06 tablet by [facility] o f tablet 00:00: mouth (four) Medical times Branch daily as needed (muscle spasms). ibuprofen 2021-07 Yes [id number] 600mg Take 1 [facility] 600 mg 0-06 tablet by [facility] tablet 00:00: mouth [place] 00 every 6 Medical (six) Branch hours as needed for Pain (scale 4-6). acetaminoph 2021-07 Yes [id number] 1000mg Take 2 [facility] en 500 mg 0-06 tablets by [facility] of tablet 00:00: mouth 00 every 8 Medical (eight) Branch hours as needed for Pain. traZODone 2021-07 Yes 50mg Take 1 [facility] 50 mg 0-06 tablet by [facility] tablet 00:00: mouth at [place] 00 bedtime. Medical Branch methocarbam 2021-07 Yes [id number] 500mg Take 1 [facility] oL 500 mg 0-06 tablet by [facility] o f tablet 00:00: mouth (four) Medical times Branch daily as needed (muscle spasms). ibuprofen 2021-07 Yes [id number] 600mg Take 1 [facility] 600 mg 0-06 tablet by [facility] of tablet 00:00: mouth [place] 00 every 6 Medical (six) Branch hours as needed for Pain (scale 4-6). acetaminoph 2021-07 Yes [id number] 1000mg Take 2 [facility] en 500 mg 0-06 tablets by [facility] of tablet 00:00: mouth [place] 00 every 8 Medical (eight) Branch hours as needed for Pain. traZODone 2021-07 Yes 50mg Take 1 [facility] 50 mg 0-06 tablet by [facility] of tablet 00:00: mouth at [place] 00 bedtime. Medical Branch methocarbam 2021-07 Yes [id number] 500mg Take 1 [facility] oL 500 mg 0-06 tablet by [facility] o f tablet 00:00: mouth 00 (four) Medical times Branch daily as needed (muscle spasms). ibuprofen 2021-07 Yes [id number] 600mg Take 1 [facility] 600 mg 0-06 tablet by [facility] of tablet 00:00: mouth [place] 00 every 6 Medical (six) Branch hours as needed for Pain (scale 4-6). acetaminoph 2021-07 Yes [id number] 1000mg Take 2 [facility] en 500 mg 0-06 tablets by [facility] of tablet 00:00: mouth [place] 00 every 8 Medical (eight) Branch hours as needed for Pain. traZODone 2021-07 Yes 50mg Take 1 [facility] 50 mg 0-06 tablet by [facility] of tablet 00:00: mouth at [place] 00 bedtime. Medical Branch methocarbam 2021-07 Yes [id number] 500mg Take 1 [facility] oL 500 mg 0-06 tablet by [facility] o f tablet 00:00: mouth 4 [place] 00 (four) Medical times Branch daily as needed (muscle spasms). ibuprofen 2021-07 Yes [id number] 600mg Take 1 [facility] 600 mg 0-06 tablet by [facility] tablet 00:00: mouth [place] 00 every 6 Medical (six) Branch hours as needed for Pain (scale 4-6). acetaminoph 2021-07 Yes [id number] 1000mg Take 2 [facility] en 500 mg 0-06 tablets by [facility] of tablet 00:00: mouth [place] 00 every 8 Medical (eight) Branch hours as needed for Pain. traZODone 2021-07 Yes 50mg Take 1 [facility] 50 mg 0-06 tablet by [facility] tablet 00:00: mouth at [place] 00 bedtime. Medical Branch methocarbam 2021-07 Yes [id number] 500mg Take 1 [facility] oL 500 mg 0-06 tablet by [facility] o f tablet 00:00: mouth 4 00 (four) Medical times Branch daily as needed (muscle spasms). ibuprofen 2021-07 Yes [id number] 600mg Take 1 [facility] 600 mg 0-06 tablet by [facility] of tablet 00:00: mouth [place] 00 every 6 Medical (six) Branch hours as needed for Pain (scale 4-6). acetaminoph 2021-07 Yes [id number] 1000mg Take 2 [facility] en 500 mg 0-06 tablets by [facility] of tablet 00:00: mouth [place] 00 every 8 Medical (eight) Branch hours as needed for Pain. traZODone 2021-07 Yes 50mg Take 1 [facility] 50 mg 0-06 tablet by [facility] tablet 00:00: mouth at [place] 00 bedtime. Medical Branch methocarbam 2021-07 Yes [id number] 500mg Take 1 [facility] oL 500 mg 0-06 tablet by [facility] o f tablet 00:00: mouth 4 [place] 00 (four) Medical times Branch daily as needed (muscle spasms). ibuprofen 2021-07 Yes [id number] 600mg Take 1 [facility] 600 mg 0-06 tablet by [facility] tablet 00:00: mouth [place] 00 every 6 Medical (six) Branch hours as needed for Pain (scale 4-6). acetaminoph 2021-07 Yes [id number] 1000mg Take 2 [facility] en 500 mg 0-06 tablets by [facility] of tablet 00:00: mouth [place] 00 every 8 Medical (eight) Branch hours as needed for Pain. traZODone 2021-07 Yes 50mg Take 1 [facility] 50 mg 0-06 tablet by [facility] tablet 00:00: mouth at [place] 00 bedtime. Medical Branch methocarbam 2021-07 Yes [id number] 500mg Take 1 [facility] oL 500 mg 0-06 tablet by [facility] o f tablet 00:00: mouth (four) Medical times Branch daily as needed (muscle spasms). ibuprofen 2021-07 Yes [id number] 600mg Take 1 [facility] 600 mg 0-06 tablet by [facility] tablet 00:00: mouth [place] 00 every 6 Medical (six) Branch hours as needed for Pain (scale 4-6). acetaminoph 2021-07 Yes [id number] 1000mg Take 2 [facility] en 500 mg 0-06 tablets by [facility] tablet 00:00: mouth [place] 00 every 8 Medical (eight) Branch hours as needed for Pain. traZODone 2021-07 Yes 50mg Take 1 [facility] 50 mg 0-06 tablet by [facility] tablet 00:00: mouth at [place] 00 bedtime. Medical Branch methocarbam 2021-07 Yes [id number] 500mg Take 1 [facility] oL 500 mg 0-06 tablet by [facility] o f tablet 00:00: mouth 4 00 (four) Medical times Branch daily as needed (muscle spasms). ibuprofen 2021-07 Yes [id number] 600mg Take 1 [facility] 600 mg 0-06 tablet by [facility] tablet 00:00: mouth [place] 00 every 6 Medical (six) Branch hours as needed for Pain (scale 4-6). acetaminoph 2021-07 Yes [id number] 1000mg Take 2 [facility] en 500 mg 0-06 tablets by [facility] of tablet 00:00: mouth [place] 00 every 8 Medical (eight) Branch hours as needed for Pain. traZODone 2021-07 Yes 50mg Take 1 [facility] 50 mg 0-06 tablet by [facility] of tablet 00:00: mouth at [place] 00 bedtime. Medical Branch methocarbam 2021-07 Yes [id number] 500mg Take 1 [facility] oL 500 mg 0-06 tablet by [facility] o f tablet 00:00: mouth (four) Medical times Branch daily as needed (muscle spasms). ibuprofen 2021-07 Yes [id number] 600mg Take 1 [facility] 600 mg 0-06 tablet by [facility] of tablet 00:00: mouth [place] 00 every 6 Medical (six) Branch hours as needed for Pain (scale 4-6). acetaminoph 2021-07 Yes [id number] 1000mg Take 2 [facility] en 500 mg 0-06 tablets by [facility] of tablet 00:00: mouth 00 every 8 Medical (eight) Branch hours as needed for Pain. traZODone 2021-07 Yes 50mg Take 1 [facility] 50 mg 0-06 tablet by [facility] tablet 00:00: mouth at 00 bedtime. Medical Branch methocarbam 2021-07 Yes [id number] 500mg Take 1 [facility] oL 500 mg 0-06 tablet by [facility] o f tablet 00:00: mouth (four) Medical times Branch daily as needed (muscle spasms). ibuprofen 2021-07 Yes [id number] 600mg Take 1 [facility] 600 mg 0-06 tablet by [facility] tablet 00:00: mouth 00 every 6 Medical (six) Branch hours as needed for Pain (scale 4-6). acetaminoph 2021-07 Yes [id number] 1000mg Take 2 [facility] en 500 mg 0-06 tablets by [facility] of tablet 00:00: mouth [place] 00 every 8 Medical (eight) Branch hours as needed for Pain. traZODone 2021-07 Yes 50mg Take 1 [facility] 50 mg 0-06 tablet by [facility] tablet 00:00: mouth at [place] 00 bedtime. Medical Branch methocarbam 2021-07 Yes [id number] 500mg Take 1 [facility] oL 500 mg 0-06 tablet by [facility] o f tablet 00:00: mouth (four) Medical times Branch daily as needed (muscle spasms). ibuprofen 2021-07 Yes [id number] 600mg Take 1 [facility] 600 mg 0-06 tablet by [facility] of tablet 00:00: mouth [place] 00 every 6 Medical (six) Branch hours as needed for Pain (scale 4-6). acetaminoph 2021-07 Yes [id number] 1000mg Take 2 [facility] 500 mg 0-06 tablets by [facility] of tablet 00:00: mouth [place] 00 every 8 Medical (eight) Branch hours as needed for Pain. traZODone 2021-07 Yes 50mg Take 1 [facility] 50 mg 0-06 tablet by [facility] of tablet 00:00: mouth at [place] 00 bedtime. Medical Branch methocarbam 2021-07 Yes [id number] 500mg Take 1 [facility] oL 500 mg 0-06 tablet by [facility] o f tablet 00:00: mouth 4 [place] 00 (four) Medical times Branch daily as needed (muscle spasms). ibuprofen 2021-07 Yes [id number] 600mg Take 1 [facility] 600 mg 0-06 tablet by [facility] of tablet 00:00: mouth [place] 00 every 6 Medical (six) Branch hours as needed for Pain (scale 4-6). acetaminoph 2021-07 Yes [id number] 1000mg Take 2 [facility] en 500 mg 0-06 tablets by [facility] of tablet 00:00: mouth [place] 00 every 8 Medical (eight) Branch hours as needed for Pain. traZODone 2021-07 Yes 50mg Take 1 [facility] 50 mg 0-06 tablet by [facility] tablet 00:00: mouth at [place] 00 bedtime. Medical Branch methocarbam 2021-07 Yes [id number] 500mg Take 1 [facility] oL 500 mg 0-06 tablet by [facility] o f tablet 00:00: mouth 4 [place] 00 (four) Medical times Branch daily as needed (muscle spasms). ibuprofen 2021-07 Yes [id number] 600mg Take 1 [facility] 600 mg 0-06 tablet by [facility] of tablet 00:00: mouth [place] 00 every 6 Medical (six) Branch hours as needed for Pain (scale 4-6). acetaminoph 2021-07 Yes [id number] 1000mg Take 2 [facility] en 500 mg 0-06 tablets by [facility] of tablet 00:00: mouth [place] 00 every 8 Medical (eight) Branch hours as needed for Pain. traZODone 2021-07 Yes 50mg Take 1 [facility] 50 mg 0-06 tablet by [facility] of tablet 00:00: mouth at [place] 00 bedtime. Medical Branch methocarbam 2021-07 Yes [id number] 500mg Take 1 [facility] oL 500 mg 0-06 tablet by [facility] o f tablet 00:00: mouth 4 [place] 00 (four) Medical times Branch daily as needed (muscle spasms). ibuprofen 2021-07 Yes [id number] 600mg Take 1 [facility] 600 mg 0-06 tablet by [facility] of tablet 00:00: mouth [place] 00 every 6 Medical (six) Branch hours as needed for Pain (scale 4-6). acetaminoph 2021-07 Yes [id number] 1000mg Take 2 [facility] en 500 mg 0-06 tablets by [facility] of tablet 00:00: mouth [place] 00 every 8 Medical (eight) Branch hours as needed for Pain. traZODone 2021-07 Yes 50mg Take 1 [facility] 50 mg 0-06 tablet by [facility] of tablet 00:00: mouth at [place] 00 bedtime. Medical Branch methocarbam 2021-07 Yes [id number] 500mg Take 1 [facility] oL 500 mg 0-06 tablet by [facility] o f tablet 00:00: mouth 4 (four) Medical times Branch daily as needed (muscle spasms). ibuprofen 2021-07 Yes [id number] 600mg Take 1 [facility] 600 mg 0-06 tablet by [facility] of tablet 00:00: mouth [place] 00 every 6 Medical (six) Branch hours as needed for Pain (scale 4-6). acetaminoph 2021-07 Yes [id number] 1000mg Take 2 [facility] en 500 mg 0-06 tablets by [facility] of tablet 00:00: mouth [place] 00 every 8 Medical (eight) Branch hours as needed for Pain. traZODone 2021-07 Yes 50mg Take 1 [facility] 50 mg 0-06 tablet by [facility] of tablet 00:00: mouth at [place] 00 bedtime. Medical Branch methocarbam 2021-07 Yes [id number] 500mg Take 1 [facility] oL 500 mg 0-06 tablet by [facility] o f tablet 00:00: mouth 4 00 (four) Medical times Branch daily as needed (muscle spasms). ibuprofen 2021-07 Yes [id number] 600mg Take 1 [facility] 600 mg 0-06 tablet by [facility] of tablet 00:00: mouth [place] 00 every 6 Medical (six) Branch hours as needed for Pain (scale 4-6). acetaminoph 2021-07 Yes [id number] 1000mg Take 2 [facility] en 500 mg 0-06 tablets by [facility] of tablet 00:00: mouth [place] 00 every 8 Medical (eight) Branch hours as needed for Pain. traZODone 2021-07 Yes 50mg Take 1 [facility] 50 mg 0-06 tablet by [facility] of tablet 00:00: mouth at [place] 00 bedtime. Medical Branch methocarbam 2021-07 Yes [id number] 500mg Take 1 [facility] oL 500 mg 0-06 tablet by [facility] o f tablet 00:00: mouth (four) Medical times Branch daily as needed (muscle spasms). ibuprofen 2021-07 Yes [id number] 600mg Take 1 [facility] 600 mg 0-06 tablet by [facility] of tablet 00:00: mouth [place] 00 every 6 Medical (six) Branch hours as needed for Pain (scale 4-6). acetaminoph 2021-07 Yes [id number] 1000mg Take 2 [facility] en 500 mg 0-06 tablets by [facility] of tablet 00:00: mouth 00 every 8 Medical (eight) Branch hours as needed for Pain. traZODone 2021-07 Yes 50mg Take 1 [facility] 50 mg 0-06 tablet by [facility] of tablet 00:00: mouth at 00 bedtime. Medical Branch methocarbam 2021-07 Yes [id number] 500mg Take 1 [facility] oL 500 mg 0-06 tablet by [facility] o f tablet 00:00: mouth (four) Medical times Branch daily as needed (muscle spasms). ibuprofen 2021-07 Yes [id number] 600mg Take 1 [facility] 600 mg 0-06 tablet by [facility] of tablet 00:00: mouth [place] 00 every 6 Medical (six) Branch hours as needed for Pain (scale 4-6). acetaminoph 2021-07 Yes [id number] 1000mg Take 2 [facility] 500 mg 0-06 tablets by [facility] of tablet 00:00: mouth [place] 00 every 8 Medical (eight) Branch hours as needed for Pain. traZODone 2021-07 Yes 50mg Take 1 [facility] 50 mg 0-06 tablet by [facility] of tablet 00:00: mouth at [place] 00 bedtime. Medical Branch methocarbam 2021-07 Yes [id number] 500mg Take 1 [facility] oL 500 mg 0-06 tablet by [facility] o f tablet 00:00: mouth 4 [place] 00 (four) Medical times Branch daily as needed (muscle spasms). ibuprofen 2021-07 Yes [id number] 600mg Take 1 [facility] 600 mg 0-06 tablet by [facility] of tablet 00:00: mouth [place] 00 every 6 Medical (six) Branch hours as needed for Pain (scale 4-6). acetaminoph 2021-07 Yes [id number] 1000mg Take 2 [facility] en 500 mg 0-06 tablets by [facility] of tablet 00:00: mouth [place] 00 every 8 Medical (eight) Branch hours as needed for Pain. traZODone 2021-07 Yes 50mg Take 1 [facility] 50 mg 0-06 tablet by [facility] of tablet 00:00: mouth at [place] 00 bedtime. Medical Branch methocarbam 2021-07 Yes [id number] 500mg Take 1 [facility] oL 500 mg 0-06 tablet by [facility] o f tablet 00:00: mouth 4 [place] 00 (four) Medical times Branch daily as needed (muscle spasms). ibuprofen 2021-07 Yes [id number] 600mg Take 1 [facility] 600 mg 0-06 tablet by [facility] of tablet 00:00: mouth [place] 00 every 6 Medical (six) Branch hours as needed for Pain (scale 4-6). acetaminoph 2021-07- No [id number] 1000mg Take 2 [facility] en 500 mg 0-06 11-29 tablets by [facility] of tablet 00:00: 00:00 mouth [place] 00 :00 every 8 Medical (eight) Branch hours as needed for Pain. traZODone 2021-07- No 50mg Take 1 [facility] 50 mg 0-06 11-29 tablet by [facility] of tablet 00:00: 00:00 mouth at [place] 00 :00 bedtime. Medical Branch methocarbam 2021-07- No [id number] 500mg Take 1 [facility] oL 500 mg 0-06 11-29 tablet by [facility] of tablet 00:00: 00:00 mouth 4 [place] 00 :00 (four) Medical times Branch daily as needed (muscle spasms). ibuprofen 2021-07- No [id number] 600mg Take 1 [facility] 600 mg 0-06 11-29 tablet by [facility] tablet 00:00: 00:00 mouth [place] 00 :00 every 6 Medical (six) Branch hours as needed for Pain (scale 4-6). acetaminoph 2021-07- No [id number] 1000mg Take 2 [facility] en 500 mg 0-12 11-29 tablets by [facility] of tablet 00:00: 00:00 mouth [place] 00 :00 every 8 Medical (eight) Branch hours as needed for Pain. traZODone 2021-07- No 50mg Take 1 [facility] 50 mg 0-05-31 tablet by [facility] tablet 00:00: 00:00 mouth at [place] 00 :00 bedtime. Medical Branch methocarbam 2021-07- No [id number] 500mg Take 1 [facility] oL 500 mg 0-05-31 tablet by [facility] tablet 00:00: 00:00 mouth 4 [place] 00 :00 (four) Medical times Branch daily as needed (muscle spasms). ibuprofen 2021-07- No [id number] 600mg Take 1 [facility] 600 mg 0-05-31 tablet by [facility] tablet 00:00: 00:00 mouth [place] 00 :00 every 6 Medical (six) Branch hours as needed for Pain (scale 4-6). acetaminoph 2021-07- No [id number] 1000mg Take 2 [facility] en 500 mg 0-12 11- tablets by ity of tablet 00:00: 00:00 mouth [place] 00 :00 every 8 Medical (eight) Branch hours as needed for Pain. traZODone 2021-07- No 50mg Take 1 Unive rs 50 mg 0-05-31 tablet by ity of tablet 00:00: 00:00 mouth at [place] 00 :00 bedtime. Medical Branch methocarbam 2021-07- No [id number] 500mg Take 1 [facility] oL 500 mg 0-05-31 tablet by ity of tablet 00:00: 00:00 mouth 4 [place] 00 :00 (four) Medical times Branch daily as needed (muscle spasms). ibuprofen 2021-07- No [id number] 600mg Take 1 [facility] 600 mg 0-12 11- tablet by ity of tablet 00:00: 00:00 mouth [place] 00 :00 every 6 Medical (six) Branch hours as needed for Pain (scale 4-6). acetaminoph 2021-07- No [id number] 1000mg Take 2 [facility] en 500 mg 0-06 -29 tablets by ity of tablet 00:00: 00:00 mouth [place] 00 :00 every 8 Medical (eight) Branch hours as needed for Pain. traZODone 2021-07- No 50mg Take 1 Un[facility] rs 50 mg 0-12 11-29 tablet by ity of tablet 00:00: 00:00 mouth at [place] 00 :00 bedtime. Medical Branch methocarbam 2021-07- No [id number] 500mg Take 1 [facility] oL 500 mg 0-12 11-29 tablet by ity of tablet 00:00: 00:00 mouth 4 [place] 00 :00 (four) Medical times Branch daily as needed (muscle spasms). ibuprofen 2021-07- No [id number] 600mg Take 1 [facility] 600 mg 0-12 11-29 tablet by ity of tablet 00:00: 00:00 mouth [place] 00 :00 every 6 Medical (six) Branch hours as needed for Pain (scale 4-6). acetaminoph 2021-07- No [id number] 1000mg Take 2 [facility] en 500 mg 0-12 11-29 tablets by ity of tablet 00:00: 00:00 mouth [place] 00 :00 every 8 Medical (eight) Branch hours as needed for Pain. traZODone 2021-07- No 50mg Take 1 Unive rs 50 mg 0-12 11-29 tablet by ity of tablet 00:00: 00:00 mouth at [place] 00 :00 bedtime. Medical Branch methocarbam 2021-07- No [id number] 500mg Take 1 [facility] oL 500 mg 0-12 11-29 tablet by ity of tablet 00:00: 00:00 mouth 4 [place] 00 :00 (four) Medical times Branch daily as needed (muscle spasms). ibuprofen 2021-07- No [id number] 600mg Take 1 [facility] 600 mg 0-12 11-29 tablet by ity of tablet 00:00: 00:00 mouth [place] 00 :00 every 6 Medical (six) Branch hours as needed for Pain (scale 4-6). acetaminoph 2021-07- No [id number] 1000mg Take 2 [facility] en 500 mg 005-31 tablets by ity of tablet 00:00: 00:00 mouth [place] 00 :00 every 8 Medical (eight) Branch hours as needed for Pain. traZODone 2021-07 No 50mg Take 1 Unive rs 50 mg 005-31 tablet by ity of tablet 00:00: 00:00 mouth at [place] 00 :00 bedtime. Medical Branch methocarbam 2021-07- No [id number] 500mg Take 1 [facility] oL 500 mg 005-31 tablet by ity of tablet 00:00: 00:00 mouth 4 [place] 00 :00 (four) Medical times Branch daily as needed (muscle spasms). ibuprofen 2021-07 No [id number] 600mg Take 1 [facility] 600 mg 005-31 tablet by ity of tablet 00:00: 00:00 mouth [place] 00 :00 every 6 Medical (six) Branch hours as needed for Pain (scale 4-6). atomoxetine 2021-07 Yes 40mg 40 mg, Univ ers (STRATTERA) 0-05 Oral, ity of capsule 40 16:45: DAILY, [place] mg 00 First dose Medical on Mon [place] 04/06/22 at 1145, Until Discontinu ed, Routine
presentation team member approving Non-formul freddie medication : KEAGAN LUO
Reason for non-formul freddie use: PATIENT CURRENTLY TAKING NONFORMULA RY PRODUCT lamoTRIgine 2021-07 Yes 25mg 25 mg, Univ ers (LAMICTAL) 0-05 Oral, ity of tablet 25 16:45: DAILY, [place] mg 00 First dose Medical on [facility] 04/06/22 at 1145, Until Discontinu ed, Routine traMADoL 2021-07 Yes 50mg 50 mg, Univers (ULTRAM) 0-05 Oral, Q8H, ity o f tablet 50 16:45: First dose [place] mg 00 on Mon [facility] 04/06/22 at Branch 1145, Until Discontinu ed, Routine oxyCODONE 2021-07 Yes 5mg 5 mg, Univers immediate 0-05 Oral, ity of release 16:31: Q4HPRN, [place] tablet 5 mg 53 Starting Medi torito on Mon [place] 04/06/22 at 1131, Until Discontinu ed, Routine, Pain (scale 7-10)<b r>presentation team member approving Restricted medication : KEAGAN LUO celecoxib 2021-07 Yes 100mg 100 mg, Univ ers (CELEBREX) 0-05 Oral, BID ity of capsule 100 15:15: [place]ALS, [place] mg 00 First dose Medical on Mon [place] 04/06/22 at 1015, Until Discontinu ed, Routine acetaminoph 2021-07 Yes 1000mg 1,000 mg, Univers en 0-05 Oral, Q8H, ity of (TYLENOL) 15:15: First dose [place] tablet 00 on Mon Medical 1,000 mg 04/06/22 at [facility] h 1015, Until Discontinu ed, Routine tamsulosin 2021-07 Yes .4mg 0.4 mg, Univ ers (FLOMAX) 0-05 Oral, ity of capsule 0.4 14:00: DAILY, [place] 00 First dose Medical on Mon [place] 04/06/22 at 0900, Until Discontinu ed, Routine methocarbam 2021-07 Yes 1000mg 1,000 mg, Univers oL 0-05 Oral, QID, ity of (ROBAXIN) 13:00: First dose [place] tablet 00 on Mon Medical 1,000 mg 04/06/22 at [facility] h 0800, Until Discontinu ed, Routine enoxaparin 2021-07 Yes 30mg 30 mg, Unive rs (LOVENOX) 0-05 Subcutaneo ity of injection 01:00: us, Q12H, [place] as 30 mg 00 First dose Medical on [facility] 04/05/22 at 2000, Until Discontinu ed, Routine methocarbam 2021-07- No 1000mg 1,000 mg, Univers oL 0-04 10-05 Intravenou ity of (ROBAXIN) 19:00: 11:05 s, Q8H, [place] injection 00 :13 First dose Medi [place] 1,000 mg on [facility] 04/05/22 at 1400, Until Discontinu ed, Routine acetaminoph 2021-07- No 1000mg 1,000 mg, Univers en ADULT 0-04 10-05 IV ity of (OFIRMEV) 19:00: 14:37 Infusion, [place] injection 00 :00 at 400 Medical 1,000 mg mL/hr [place] Administer over 15 Minutes, Q8H, 3 doses, First dose on Mon04/05/22 at 1400, Last dose on Mon04/06/22 at 0600, Routine
Indicatio n: Perioperat janna Patient polyethylen 2021-07 Yes 17g 17 g, Unive rs e glycol 0-04 Oral, ity of 3350 powder 14:15: DAILY, [place] 17 g 00 First dose Medical on Mon [place] 04/05/22 at 0915, Until Discontinu ed, Routine ibuprofen 2021-07 No 600mg 600 mg, Uni vers (IBU) 0-04 10-04 Oral, TID ity of tablet 600 13:00: 14:14 MEALS, [place] mg 00 :08 First dose Medical on [place] 04/05/22 at 0800, Until Discontinu ed, Routine [...] [place] tablet 500 00 :36 on [facility] Medical mg 04/04/22 at Branch 2000, Until Discontinu ed, Routine morpHINE (2 2021-07 No 2mg 2 mg, Slow Univers mg/mL) 0-03 10-04 IV Push, ity of injection 2 23:22: 14:14 Q4HPRN, [place] mg 51 :08 Starting Medical on Mon [place] 04/04/22 at 1822, Until Mon04/05/22 at 0914, [...] 50 mcg dose, On Branch 04/04/22 at 1700, Routine FENTanyl PF 2021-07 No 50ug 50 mcg, Un [place] (SUBLIMAZE 0-03 10-03 Slow IV ity o f (PF)) 20:30: 19:32 Push, [place] injection 00 :00 ONCE, 1 Medical 50 mcg dose, On Branch 04/04/22 at 1530, Routine ondansetron 2021-07 No 4mg 4 mg, Slow Univers (ZOFRAN 004-04 IV Push, ity of (PF)) 19:45: 19:32 ONCE, 1 [place] injection 4 00 :00 dose, On Medi torito mg [facility] Branch 04/04/22 at 1445, ARLEN iopamidol 2021-07- No [id number] 80mL 80 mL, Univers (ISOVUE 004-04 Intravenou ity o f 370-500 mL) 19:00: 18:49 s, ONCE, 1 [place] injection 00 :00 dose, On Medica l 80 mL [facility] Branch 04/04/22 at 1400, Routine NaCl 0.9% [...] [place] Branch 03/31/22 at 2315, ARLEN ARIPiprazol 2022-0 Yes [id number] 300mg 300 mg by Univers e (ABILIFY 9-15 Intramuscu ity of MAINTENA) 00:00: lar route [place] 300 mg sers 00 once every Me dical month. Branch ARIPiprazol 2-0 Yes 300mg 300 mg by Univers e (ABILIFY 9-15 Intramuscu ity of MAINTENA) 00:00: lar route [place] 300 mg sers 00 once every Me dical month. Branch ARIPiprazol 2022-0 Yes [id number] 300mg 300 mg by Univers e (ABILIFY 9-15 Intramuscu ity of MAINTENA) 00:00: lar route [place] 300 mg sers 00 once every Me dical month. Branch ARIPiprazol 2-0 Yes 300mg 300 mg by Univers e (ABILIFY 9-15 Intramuscu ity of MAINTENA) 00:00: lar route [place] 300 mg sers 00 once every Me dical month. Branch ARIPiprazol 2-0 Yes [id number] 300mg 300 mg by Univers e (ABILIFY 9-15 Intramuscu ity of MAINTENA) 00:00: lar route [place] 300 mg sers 00 once every Me dical month. Branch ARIPiprazol 2-0 Yes 300mg 300 mg by Univers e (ABILIFY 9-15 Intramuscu ity of MAINTENA) 00:00: lar route [place] 300 mg sers 00 once every Me dical month. Branch ARIPiprazol 2022-0 Yes [id number] 300mg 300 mg by Univers e (ABILIFY 9-15 Intramuscu ity of MAINTENA) 00:00: lar route [place] 300 mg sers 00 once every Me dical month. Branch ARIPiprazol 2-0 Yes 300mg 300 mg by Univers e (ABILIFY 9-15 Intramuscu ity of MAINTENA) 00:00: lar route [place] 300 mg sers 00 once every Me dical month. Branch ARIPiprazol 2022-0 Yes [id number] 300mg 300 mg by Univers e (ABILIFY 9-15 Intramuscu ity of MAINTENA) 00:00: lar route [place] 300 mg sers 00 once every Me dical month. Branch ARIPiprazol 2022-0 Yes 300mg 300 mg by Univers e (ABILIFY 9-15 Intramuscu ity of MAINTENA) 00:00: lar route [place] 300 mg sers 00 once every Me dical month. Branch ARIPiprazol 2022-0 Yes [id number] 300mg 300 mg by Univers e (ABILIFY 9-15 Intramuscu ity of MAINTENA) 00:00: lar route [place] 300 mg sers 00 once every Me dical month. Branch ARIPiprazol 2022-0 Yes 300mg 300 mg by Univers e (ABILIFY 9-15 Intramuscu ity of MAINTENA) 00:00: lar route [place] 300 mg sers 00 once every Me dical month. Branch ARIPiprazol 2022-0 Yes [id number] 300mg 300 mg by Univers e (ABILIFY 9-15 Intramuscu ity of MAINTENA) 00:00: lar route [place] 300 mg sers 00 once every Me dical month. Branch ARIPiprazol 2-0 Yes 300mg 300 mg by Univers e (ABILIFY 9-15 Intramuscu ity of MAINTENA) 00:00: lar route [place] 300 mg sers 00 once every Me dical month. Branch ARIPiprazol 2-0 Yes [id number] 300mg 300 mg by Univers e (ABILIFY 9-15 Intramuscu ity of MAINTENA) 00:00: lar route [place] 300 mg sers 00 once every Me dical month. Branch ARIPiprazol 2022-0 Yes [id number] 300mg 300 mg by Univers e (ABILIFY 9-15 Intramuscu ity of MAINTENA) 00:00: lar route [place] 300 mg sers 00 once every Me dical month. Branch ARIPiprazol 2022-0 Yes [id number] 300mg 300 mg by Univers e (ABILIFY 9-15 Intramuscu ity of MA[facility]TENA) 00:00: lar route [place] 300 mg sers 00 once every Me dical month. Branch ARIPiprazol 2022-0 Yes [id number] 300mg 300 mg by Univers e (ABILIFY 9-15 Intramuscu ity of MAINTENA) 00:00: lar route [place] 300 mg sers 00 once every Me dical month. Branch ARIPiprazol 2021-0 Yes [id number] 300mg 300 mg by Univers e (ABILIFY 03-17 Intramuscu ity [facility]) 00:00: lar route [place] 300 mg sers 00 once every Me dical month. Branch ARIPiprazol 2021-0 Yes [id number] 300mg 300 mg by Univers e (ABILIFY 03-17 Intramuscu ity [facility]) 00:00: lar route [place] 300 mg sers 00 once every Me dical month. Branch ARIPiprazol 2021-0 2- No 300mg 300 mg by Univers e (ABILIF03-17 Intramuscu it y [facility]) 00:00: 00:00 lar route [place] 300 mg sers 00 :00 once every Me dical month. Branch ARIPiprazol 2021-0 2- No 300mg 300 mg by Univers e (ABILIFY 03-17 Intramuscu it y [facility]) 00:00: 00:00 lar route [place] 300 mg sers 00 :00 once every Me dical month. Branch ARIPiprazol 2021-0 2- No 300mg 300 mg by Univers e (ABILIFY 03-17 Intramuscu it y [facility]) 00:00: 00:00 lar route [place] 300 mg sers 00 :00 once every Me dical month. Branch ARIPiprazol 2021-0 2022- No 300mg 300 mg by Univers e (ABILIFY 03-17 Intramuscu it y [facility]) 00:00: 00:00 lar route [place] 300 mg sers 00 :00 once every Me dical month. Branch ARIPiprazol 2021-0 2022- No 300mg 300 mg by Univers e (ABILIFY 03-17 Intramuscu it y [facility]) 00:00: 00:00 lar route [place] 300 [...] e (ABILIFY 03-17 Intramuscu it y of [facility]) 00:00: 00:00 lar route [place] 300 mg sers 00 :00 once every Me dical month. Branch ARIPiprazol 2021-0 2021- No 300mg 300 mg by Univers e (ABILIFY 03-17 Intramuscu it y [facility]) 00:00: 00:00 lar route [place] 300 mg sers 00 :00 once every Me dical month. Branch ARIPiprazol 2021-2021- No 300mg 300 mg by Univers e (ABILIFY 03-17 Intramuscu it y [facility]) 00:00: 00:00 lar route [place] 300 mg sers 00 :00 once every Me dical month. Branch ARIPiprazol 2021-2021- No 300mg 300 mg by Univers e (ABILIFY 03-17 Intramuscu it y [facility]) 00:00: 00:00 lar route [place] 300 mg sers 00 :00 once every Me dical month. Branch ARIPiprazol 2021-0 2021- No 300mg 300 mg by Univers e (ABILIFY 03-17 Intramuscu it y [facility]) 00:00: 00:00 lar route [place] 300 mg sers 00 :00 once every Me dical month. Branch ARIPiprazol 2021-0 2021- No [id number] 10mg Take 1 U nivers e 10 mg 9-08 10-09 tablet by ity of tablet 00:00: 04:59 mouth in [place] 00 :00 the Medical morning Branch for 30 days. ARIPiprazol 2021-0 2021- No [id number] 10mg Take 1 U nivers e 10 mg 9-08 10-09 tablet by ity of tablet 00:00: 04:59 mouth in [place] 00 :00 the Medical morning Branch for 30 days. ARIPiprazol 2021-0 2021- No [id number] 10mg Take 1 U nivers e 10 mg 9-08 10-09 tablet by ity of tablet 00:00: 04:59 mouth in [place] 00 :00 [facility] for 30 days. ARIPiprazol 2021-2- No [id number] 10mg Take 1 U nivers e 10 mg 9-08 10-09 tablet by ity of tablet 00:00: 04:59 mouth in [place] 00 :00 [facility] for 30 days. ARIPiprazol 2021-2- No [id number] 10mg Take 1 U nivers e 10 mg 9-08 10-09 tablet by ity of tablet 00:00: 04:59 mouth in [place] 00 :00 [facility] for 30 days. ARIPiprazol 2021-2- No [id number] 10mg Take 1 U nivers e 10 mg 9-08 10-09 tablet by ity of tablet 00:00: 04:59 mouth in [place] 00 :00 [facility] for 30 days. ARIPiprazol 2021-2- No [id number] 10mg Take 1 U nivers e 10 mg 9-08 10-09 tablet by ity of tablet 00:00: 04:59 mouth in [place] 00 :00 [facility] for 30 days. ARIPiprazol 2021-2021- No [id number] 10mg Take 1 U nivers e 10 mg 9-08 10-09 tablet by ity of tablet 00:00: 04:59 mouth in [place] 00 :00 [facility] for 30 days. ARIPiprazol 2021-2- No [id number] 10mg Take 1 U nivers e 10 mg 9-08 10-09 tablet by ity of tablet 00:00: 04:59 mouth in [place] 00 :00 [facility] for 30 days. ARIPiprazol 2021-2- No [id number] 10mg Take 1 U nivers e 10 mg 9-08 10-09 tablet by ity of tablet 00:00: 04:59 mouth in [place] 00 :00 [facility] for 30 days. ARIPiprazol 2021-0 2- No [id number] 10mg Take 1 U nivers e 10 mg 9-08 10-09 tablet by ity of tablet 00:00: 04:59 mouth in [place] 00 :00 [facility] for 30 days. ARIPiprazol 2022021- No [id number] 10mg Take 1 U nivers e 10 mg 9-08 10-09 tablet by ity of tablet 00:00: 04:59 mouth in [place] 00 :00 the [facility] morning [place] for 30 days. ARIPiprazol 2021- No [id number] 10mg Take 1 U nivers e 10 mg 9-08 10-09 tablet by ity of tablet 00:00: 04:59 mouth in [place] 00 :00 the [facility] for 30 days. ARIPiprazol 2021- No [id number] 10mg Take 1 U nivers e 10 mg 9-08 10-09 tablet by ity of tablet 00:00: 04:59 mouth in [place] 00 :00 the [facility] for 30 days. ARIPiprazol 2021- No [id number] 10mg Take 1 U nivers e 10 mg 9-08 10-09 tablet by ity of tablet 00:00: 04:59 mouth in [place] 00 :00 the [facility] for 30 days. ARIPiprazol 2021- No [id number] 10mg Take 1 U nivers e 10 mg 9-08 10-09 tablet by ity of tablet 00:00: 04:59 mouth in [place] 00 :00 the [facility] for 30 days. ARIPiprazol 2021- No [id number] 10mg Take 1 U nivers e 10 mg 9-08 10-09 tablet by ity of tablet 00:00: 04:59 mouth in [place] 00 :00 the [facility] morning [place] for 30 days. ARIPiprazol 2021- No [id number] 10mg Take 1 U nivers e 10 mg 9-08 10-09 tablet by ity of tablet 00:00: 04:59 mouth in [place] 00 :00 the [facility] for 30 days. ARIPiprazol 2021-2021- No [id number] 10mg Take 1 U nivers e 10 mg 9-08 10-09 tablet by ity of tablet 00:00: 04:59 mouth in [place] 00 :00 the [facility] for 30 days. ARIPiprazol 2021- No [id number] 10mg Take 1 U nivers e 10 mg 9-08 10-09 tablet by ity of tablet 00:00: 04:59 mouth in [place] 00 :00 [facility] for 30 days. ARIPiprazol 2021-2021- No [id number] 10mg Take 1 U nivers e 10 mg 9-08 10-09 tablet by ity of tablet 00:00: 04:59 mouth in [place] 00 :00 the [facility] for 30 days. ARIPiprazol 2021-2021- No [id number] 10mg Take 1 U nivers e 10 mg 9-08 10-09 tablet by ity of tablet 00:00: 04:59 mouth in [place] 00 :00 [facility] for 30 days. ARIPiprazol 2021-2021- No [id number] 10mg Take 1 U nivers e 10 mg 9-08 10-09 tablet by ity of tablet 00:00: 04:59 mouth in [place] 00 :00 [facility] for 30 days. ARIPiprazol 2021-2021- No [id number] 10mg Take 1 U nivers e 10 mg 9-08 10-09 tablet by ity of tablet 00:00: 04:59 mouth in [place] 00 :00 [facility] for 30 days. ARIPiprazol 2021-2021- No [id number] 10mg Take 1 U nivers e 10 mg 9-08 10-09 tablet by ity of tablet 00:00: 04:59 mouth in [place] 00 :00 [facility] for 30 days. ARIPiprazol 2021-2021- No [id number] 10mg Take 1 U nivers e 10 mg 9-08 10-09 tablet by ity of tablet 00:00: 04:59 mouth in [place] 00 :00 [facility] for 30 days. ARIPiprazol 2021-2021- No [id number] 10mg Take 1 U nivers e 10 mg 9-08 10-09 tablet by ity of tablet 00:00: 04:59 mouth in [place] 00 :00 [facility] for 30 days. ARIPiprazol 2021-2021- No [id number] 10mg Take 1 U nivers e 10 mg 9-08 10-09 tablet by ity of tablet 00:00: 04:59 mouth in [place] 00 :00 [facility] for 30 days. ARIPiprazol 2021- No [id number] 300mg 300 mg by Univers e (ABILIY 03-09 Intr[facility]cu it y of [facility]) 00:00: 05:59 lar route [place] 300 mg sers 00 :00 once every Me dical month for Branch 90 days. ARIPiprazol 2021- No [id number] 300mg 300 mg by Univers e ([facility] 03-09 [facility] it y of [facility]) 00:00: 00:00 lar route [place] 300 mg sers 00 :00 once every Me dical month for Branch 90 days. ARIPiprazol 2021- No [id number] 300mg 300 mg by Univers e ([facility] 03-09 Intramuscu it y of [facility]) 00:00: 00:00 lar route [place] 300 mg sers 00 :00 once every Me dical month for Branch 90 days. ARIPiprazol 2021- No [id number] 300mg 300 mg by Univers e ([facility] 03-09 [facility] y of [facility]) 00:00: 00:00 lar route [place] 300 mg sers 00 :00 once every Me dical month for Branch 90 days. ARIPiprazol 2021- No [id number] 300mg 300 mg by Univers e ([facility] 03-09 Intr[facility] it y of [facility]) 00:00: 00:00 lar route [place] 300 mg sers 00 :00 once every Me dical month for Branch 90 days. ARIPiprazol 2021- No [id number] 300mg 300 mg by Univers e ([facility] 03-09 [facility] it y of [facility]) 00:00: 00:00 lar route [place] 300 mg sers 00 :00 once every Me dical month for Branch 90 days. QUEtiapine 2021- No [id number] 50mg Take 1 Un [place] 50 mg 01-17-08 tablet by ity of tablet 00:00: 00:00 mouth in [place] 00 :00 the Medical morning Branch and 1 tablet in the evening. Do all this for 60 days. QUEtiapine 2021- No [id number] 50mg Take 1 Un [place] 50 mg 7-18 09-08 tablet by ity of tablet 00:00: 00:00 mouth in [place] 00 :00 the Medical morning Branch and 1 tablet in the evening. Do all this for 60 days. QUEtiapine 2021- No [id number] 50mg Take 1 Un [place] 50 mg 7-18 09-08 tablet by ity of tablet 00:00: 00:00 mouth in [place] 00 :00 the Medical morning Branch and 1 tablet in the evening. Do all this for 60 days. QUEtiapine 2021- No [id number] 50mg Take 1 [facility] [place] 50 mg 7-18 09-08 tablet by ity of tablet 00:00: 00:00 mouth in [place] 00 :00 the Medical morning Branch and 1 tablet in the evening. Do all this for 60 days. QUEtiapine No [id number] 50mg Take 1 Un [place] 50 mg 7-18 -08 tablet by ity of tablet 00:00: 00:00 mouth in [place] 00 :00 the Medical morning Branch and 1 tablet in the evening. Do all this for 60 days. lithium No [id number] 300mg Take 1 U nivers carbonate 12-07- tablet by ity of CR 300 mg 00:00: 04:59 mouth at [place] tablet 00 :00 bedtime Medical for 90 Branch days. lithium No [id number] 450mg Take 1 U nivers carbonate 12-07- tablet by ity of CR 450 mg 00:00: 04:59 mouth [place] SR tablet 00 :00 every Medical morning Branch for 90 days. lithium No [id number] 300mg Take 1 U nivers carbonate 12-07- tablet by ity of CR 300 mg 00:00: 04:59 mouth at [place] SR tablet 00 :00 bedtime Medical for 90 Branch days. lithium No [id number] 450mg Take 1 U nivers carbonate 12-07- tablet by ity of CR 450 mg 00:00: 04:59 mouth [place] SR tablet 00 :00 every Medical morning Branch for 90 days. lithium No [id number] 300mg Take 1 U nivers carbonate 12-07 tablet by ity of CR 300 mg 00:00: 04:59 mouth at [place] SR tablet 00 :00 bedtime Medical for 90 Branch days. lithium No [id number] 450mg Take 1 U nivers carbonate 12-07 tablet by ity of CR 450 mg 00:00: 04:59 mouth [place] SR tablet 00 :00 every Medical morning Branch for 90 days. lithium No [id number] 300mg Take 1 U nivers carbonate 12-07 tablet by ity of CR 300 mg 00:00: 04:59 mouth at [place] SR tablet 00 :00 bedtime Medical for 90 Branch days. lithium No [id number] 450mg Take 1 U nivers carbonate 12-07 tablet by ity of CR 450 mg 00:00: 04:59 mouth [place] SR tablet 00 :00 every Medical morning Branch for 90 days. lithium No [id number] 300mg Take 1 U nivers carbonate 12-07 tablet by ity of CR 300 mg 00:00: 04:59 mouth at [place] SR tablet 00 :00 bedtime Medical for 90 Branch days. lithium No [id number] 450mg Take 1 U nivers carbonate 12-07 tablet by ity of CR 450 mg 00:00: 04:59 mouth [place] SR tablet 00 :00 every Medical morning Branch for 90 days. miSOPROStoL Yes [id number] 200ug Take 1 Univers 200 mcg 4-29 tablet by ity of tablet 00:00: mouth [place] 00 SEE-INSTRU Medical CTIONS. Branch Take one tab the night before and one tab the morning of procedure miSOPROStoL Yes [id number] 200ug Take 1 Univers 200 mcg 4-29 tablet by ity of tablet 00:00: mouth [place] 00 SEE-INSTRU Medical CTIONS. Branch Take one tab the night before and one tab the morning of procedure miSOPROStoL Yes [id number] 200ug Take 1 Univers 200 mcg 4-29 tablet by ity of tablet 00:00: mouth [place] SEE-INSTRU Medical CTIONS. Branch Take one tab the night before and one tab the morning of procedure miSOPROStoL 0 Yes [id number] 200ug Take 1 Univers 200 mcg 4-29 tablet by ity of tablet 00:00: mouth [place] 00 SEE-INSTRU Medical CTIONS. Branch Take one tab the night before and one tab the morning of procedure miSOPROStoL 0 Yes [id number] 200ug Take 1 Univers 200 mcg 4-29 tablet by ity of tablet 00:00: mouth [place] 00 SEE-INSTRU Medical CTIONS. Branch Take one tab the night before and one tab the morning of procedure miSOPROStoL 0 Yes [id number] 200ug Take 1 [facility] 200 mcg 4-29 tablet by ity of tablet 00:00: mouth [place] 00 SEE-INSTRU Medical CTIONS. Branch Take one tab the night before and one tab the morning of procedure miSOPROStoL Yes [id number] 200ug Take 1 Univers 200 mcg 4-29 tablet by ity of tablet 00:00: mouth 00 SEE-INSTRU Medical CTIONS. Branch Take one tab the night before and one tab the morning of procedure miSOPROStoL 0 Yes [id number] 200ug Take 1 [facility] 200 mcg 4-29 tablet by ity of tablet 00:00: mouth 00 SEE-INSTRU Medical CTIONS. Branch Take one tab the night before and one tab the morning of procedure miSOPROStoL 0 Yes [id number] 200ug Take 1 [facility] 200 mcg 4-29 tablet by ity of tablet 00:00: mouth [place] 00 SEE-INSTRU Medical CTIONS. Branch Take one tab the night before and one tab the morning of procedure miSOPROStoL 2021-0 2021- No [id number] 200ug Take 1 [facility] 200 mcg 4-29 10-06 tablet by ity of tablet 00:00: 00:00 mouth [place] 00 :00 SEE-INSTRU Medical CTIONS. Branch Take one tab the night before and one tab the morning of procedure miSOPROStoL 2021-0 2021- No [id number] 200ug Take 1 Univers 200 mcg 4-29 10-06 tablet by ity of tablet 00:00: 00:00 mouth [place] 00 :00 SEE-INSTRU Medical CTIONS. Branch Take one tab the night before and one tab the morning of procedure miSOPROStoL 2021-0 2021- No [id number] 200ug Take 1 [facility] 200 mcg 4-29 10-06 tablet by ity of tablet 00:00: 00:00 [facility] 00 :00 SEE-INSTRU Medical CTIONS. Branch Take one tab the night before and one tab the morning of procedure miSOPROStoL 2021- No [id number] 200ug Take 1 [facility] 200 mcg 4-29 10-06 tablet by ity of tablet 00:00: 00:00 [facility] 00 :00 SEE-INSTRU Medical CTIONS. Branch Take one tab the night before and one tab the morning of procedure miSOPROStoL 2021- No [id number] 200ug Take 1 [facility] 200 mcg 4-29 10-06 tablet by ity of tablet 00:00: 00:00 [facility] 00 :00 SEE-INSTRU Medical CTIONS. Branch Take one tab the night before and one tab the morning of procedure miSOPROStoL 2021- No [id number] 200ug Take 1 [facility] 200 mcg 4-29 10-06 tablet by ity of tablet 00:00: 00:00 [facility] 00 :00 SEE-INSTRU Medical CTIONS. Branch Take one tab the night before and one tab the morning of procedure miSOPROStoL 2021- No [id number] 200ug Take 1 [facility] 200 mcg 4-29 10-06 tablet by ity of tablet 00:00: 00:00 [facility] 00 :00 SEE-INSTRU Medical CTIONS. Branch Take one tab the night before and one tab the morning of procedure miSOPROStoL 2021- No [id number] 200ug Take 1 [facility] 200 mcg 4-29 10-06 tablet by ity of tablet 00:00: 00:00 [facility] 00 :00 SEE-INSTRU Medical CTIONS. Branch Take one tab the night before and one tab the morning of procedure miSOPROStoL 2021- No [id number] 200ug Take 1 [facility] 200 mcg 4-29 10-06 tablet by ity of tablet 00:00: 00:00 [facility] 00 :00 SEE-INSTRU Medical CTIONS. Branch Take one tab the night before and one tab the morning of procedure miSOPROStoL 2021- No [id number] 200ug Take 1 [facility] 200 mcg 4-29 10-06 tablet by ity of tablet 00:00: 00:00 [facility] 00 :00 SEE-INSTRU Medical CTIONS. Branch Take one tab the night before and one tab the morning of procedure miSOPROStoL 2021-2021- No [id number] 200ug Take 1 [facility] 200 mcg 4-29 10-06 tablet by ity of tablet 00:00: 00:00 [facility] 00 :00 SEE-INSTRU Medical CTIONS. Branch Take one tab the night before and one tab the morning of procedure miSOPROStoL 2021-2021- No [id number] 200ug Take 1 [facility] 200 mcg 4-29 10-06 tablet by ity of tablet 00:00: 00:00 [facility] 00 :00 SEE-INSTRU Medical CTIONS. Branch Take one tab the night before and one tab the morning of procedure miSOPROStoL 2021-2021- No [id number] 200ug Take 1 [facility] 200 mcg 4-29 10-06 tablet by ity of tablet 00:00: 00:00 [facility] 00 :00 SEE-INSTRU Medical CTIONS. Branch Take one tab the night before and one tab the morning of procedure miSOPROStoL 2021-2021- No [id number] 200ug Take 1 [facility] 200 mcg 4-29 10-06 tablet by ity of tablet 00:00: 00:00 [facility] 00 :00 SEE-INSTRU Medical CTIONS. Branch Take one tab the night before and one tab the morning of procedure miSOPROStoL 2021-2021- No [id number] 200ug Take 1 [facility] 200 mcg 4-29 10-06 tablet by ity of tablet 00:00: 00:00 [facility] 00 :00 SEE-INSTRU Medical CTIONS. Branch Take one tab the night before and one tab the morning of procedure miSOPROStoL 2021-2021- No [id number] 200ug Take 1 [facility] 200 mcg 4-29 10-06 tablet by ity of tablet 00:00: 00:00 [facility] 00 :00 SEE-INSTRU Medical CTIONS. Branch Take one tab the night before and one tab the morning of procedure miSOPROStoL 2021-2021- No [id number] 200ug Take 1 [facility] 200 mcg 4-29 10-06 tablet by ity of tablet 00:00: 00:00 [facility] 00 :00 SEE-INSTRU Medical CTIONS. Branch Take one tab the night before and one tab the morning of procedure miSOPROStoL 2021- No [id number] 200ug Take 1 [facility] 200 mcg 10-29 tablet by ity of tablet 00:00: 00:00 [facility] [place] 00 :00 [facility] Medical CTIONS. Branch Take one tab the night before and one tab the morning of procedure Immunizations Ordered Immunization Filled Date Status Comments Sour ce Name Immunization Name SARS-COV-2 COVID-19 2022-03-17 Completed Unive rsity of MIKE-SUCROSE VACCINE 00:00:00 [facility] 12 YRS+, BIVALENT Branch 0.3ML, IM, (PFIZER ARITA TOP BOOSTER) SARS-COV-2 COVID-19 2022-03-17 Completed Unive rsity of MIKE-SUCROSE VACCINE 00:00:00 [facility] 12 YRS+, BIVALENT Branch 0.3ML, IM, (PFIZER ARITA TOP BOOSTER) SARS-COV-2 COVID-19 2022-03-17 Completed Unive rsity of MIKE-SUCROSE VACCINE 00:00:00 [facility] 12 YRS+, BIVALENT Branch 0.3ML, IM, (PFIZER ARITA TOP BOOSTER) SARS-COV-2 COVID-19 2022-03-17 Completed Unive rsity of MIKE-SUCROSE VACCINE 00:00:00 [facility] 12 YRS+, BIVALENT Branch 0.3ML, IM, (PFIZER ARITA TOP BOOSTER) SARS-COV-2 COVID-19 2022-03-17 Completed Unive rsity of MIKE-SUCROSE VACCINE 00:00:00 [facility] 12 YRS+, BIVALENT Branch 0.3ML, IM, (PFIZER ARITA TOP BOOSTER) SARS-COV-2 COVID-19 2022-03-17 Completed Unive rsity of MIKE-SUCROSE VACCINE 00:00:00 [facility] 12 YRS+, BIVALENT Branch 0.3ML, IM, (PFIZER ARITA TOP BOOSTER) SARS-COV-2 COVID-19 2022-03-17 Completed Unive rsity of MIKE-SUCROSE VACCINE 00:00:00 [facility] 12 YRS+, BIVALENT Branch 0.3ML, IM, (PFIZER ARITA TOP BOOSTER) SARS-COV-2 COVID-19 2022-03-17 Completed Unive rsity of MIKE-SUCROSE VACCINE 00:00:00 [facility] 12 YRS+, BIVALENT Branch 0.3ML, IM, (PFIZER ARITA TOP BOOSTER) SARS-COV-2 COVID-19 2022-03-17 Completed Unive rsity of MIKE-SUCROSE VACCINE 00:00:00 [facility] 12 YRS+, BIVALENT Branch 0.3ML, IM, (PFIZER ARITA TOP BOOSTER) SARS-COV-2 COVID-19 2022-03-17 Completed Unive rsity of MIKE-SUCROSE VACCINE 00:00:00 [facility] 12 YRS+, BIVALENT Branch 0.3ML, IM, (PFIZER ARITA TOP BOOSTER) SARS-COV-2 COVID-19 2022-03-17 Completed Unive rsity of MIKE-SUCROSE VACCINE 00:00:00 [facility] 12 YRS+, BIVALENT Branch 0.3ML, IM, (PFIZER ARITA TOP BOOSTER) SARS-COV-2 COVID-19 2022-03-17 Completed Unive rsity of MIKE-SUCROSE VACCINE 00:00:00 [facility] 12 YRS+, BIVALENT Branch 0.3ML, IM, (PFIZER ARITA TOP BOOSTER) SARS-COV-2 COVID-19 2022-03-17 Completed Unive rsity of MIKE-SUCROSE VACCINE 00:00:00 [facility] 12 YRS+, BIVALENT Branch 0.3ML, IM, (PFIZER ARITA TOP BOOSTER) SARS-COV-2 COVID-19 2022-03-17 Completed Unive rsity of MIKE-SUCROSE VACCINE 00:00:00 [facility] 12 YRS+, BIVALENT Branch 0.3ML, IM, (PFIZER ARITA TOP BOOSTER) SARS-COV-2 COVID-19 2022-03-17 Completed Unive rsity of MIKE-SUCROSE VACCINE 00:00:00 [facility] 12 YRS+, BIVALENT Branch 0.3ML, IM, (PFIZER ARITA TOP BOOSTER) SARS-COV-2 COVID-19 2022-03-17 Completed Unive rsity of MIKE-SUCROSE VACCINE 00:00:00 [facility] 12 YRS+, BIVALENT Branch 0.3ML, IM, (PFIZER ARITA TOP BOOSTER) SARS-COV-2 COVID-19 2022-03-17 Completed Unive rsity of MIKE-SUCROSE VACCINE 00:00:00 [facility] 12 YRS+, BIVALENT Branch 0.3ML, IM, (PFIZER ARITA TOP BOOSTER) SARS-COV-2 COVID-19 2022-03-17 Completed Unive rsity of MIKE-SUCROSE VACCINE 00:00:00 [facility] 12 YRS+, BIVALENT Branch 0.3ML, IM, (PFIZER ARITA TOP BOOSTER) SARS-COV-2 COVID-19 2022-03-17 Completed Unive rsity of MIKE-SUCROSE VACCINE 00:00:00 [facility] 12 YRS+, BIVALENT Branch 0.3ML, IM, (PFIZER ARITA TOP BOOSTER) SARS-COV-2 COVID-19 2022-03-17 Completed Unive rsity of MIKE-SUCROSE VACCINE 00:00:00 [facility] 12 YRS+, BIVALENT Branch 0.3ML, IM, (PFIZER ARITA TOP BOOSTER) SARS-COV-2 COVID-19 2022-03-17 Completed Unive rsity of MIKE-SUCROSE VACCINE 00:00:00 [facility] 12 YRS+, BIVALENT Branch 0.3ML, IM, (PFIZER ARITA TOP BOOSTER) SARS-COV-2 COVID-19 2022-03-17 Completed Unive rsity of MIKE-SUCROSE VACCINE 00:00:00 [facility] 12 YRS+, BIVALENT Branch 0.3ML, IM, (PFIZER ARITA TOP BOOSTER) SARS-COV-2 COVID-19 2022-03-17 Completed Unive rsity of MIKE-SUCROSE VACCINE 00:00:00 [facility] 12 YRS+, BIVALENT Branch 0.3ML, IM, (PFIZER ARITA TOP BOOSTER) SARS-COV-2 COVID-19 2022-03-17 Completed Unive rsity of MIKE-SUCROSE VACCINE 00:00:00 [facility] 12 YRS+, BIVALENT Branch 0.3ML, IM, (PFIZER ARITA TOP BOOSTER) SARS-COV-2 COVID-19 2022-03-17 Completed Unive rsity of MIKE-SUCROSE VACCINE 00:00:00 [facility] 12 YRS+, BIVALENT Branch 0.3ML, IM, (PFIZER ARITA TOP BOOSTER) SARS-COV-2 COVID-19 2022-03-17 Completed Unive rsity of MIKE-SUCROSE VACCINE 00:00:00 [facility] 12 YRS+, BIVALENT Branch 0.3ML, IM, (PFIZER ARITA TOP BOOSTER) SARS-COV-2 COVID-19 2022-03-17 Completed Unive rsity of MIKE-SUCROSE VACCINE 00:00:00 [facility] 12 YRS+, BIVALENT Branch 0.3ML, IM, (PFIZER ARITA TOP BOOSTER) SARS-COV-2 COVID-19 2022-03-17 Completed Unive rsity of MIKE-SUCROSE VACCINE 00:00:00 [facility] 12 YRS+, BIVALENT Branch 0.3ML, IM, (PFIZER ARITA TOP BOOSTER) SARS-COV-2 COVID-19 2022-03-17 Completed Unive rsity of MIKE-SUCROSE VACCINE 00:00:00 [facility] 12 YRS+, BIVALENT Branch 0.3ML, IM, (PFIZER ARITA TOP BOOSTER) SARS-COV-2 COVID-19 2022-03-17 Completed Unive rsity of MIKE-SUCROSE VACCINE 00:00:00 [facility] 12 YRS+, BIVALENT Branch 0.3ML, IM, (PFIZER ARITA TOP BOOSTER) SARS-COV-2 COVID-19 2022-03-17 Completed Unive rsity of MIKE-SUCROSE VACCINE 00:00:00 [facility] 12 YRS+, BIVALENT Branch 0.3ML, IM, (PFIZER ARITA TOP BOOSTER) SARS-COV-2 COVID-19 2022-03-17 Completed Unive rsity of MIKE-SUCROSE VACCINE 00:00:00 [facility] 12 YRS+, BIVALENT Branch 0.3ML, IM, (PFIZER ARITA TOP BOOSTER) SARS-COV-2 COVID-19 2022-03-17 Completed Unive rsity of MIKE-SUCROSE VACCINE 00:00:00 [facility] 12 YRS+, BIVALENT Branch 0.3ML, IM, (PFIZER ARITA TOP BOOSTER) SARS-COV-2 COVID-19 2022-03-17 Completed Unive rsity of MIKE-SUCROSE VACCINE 00:00:00 [facility] 12 YRS+, BIVALENT Branch 0.3ML, IM, (PFIZER ARITA TOP BOOSTER) SARS-COV-2 COVID-19 2022-03-17 Completed Unive rsity of MIKE-SUCROSE VACCINE 00:00:00 [facility] 12 YRS+, BIVALENT Branch 0.3ML, IM, (PFIZER ARITA TOP BOOSTER) SARS-COV-2 COVID-19 2022-03-17 Completed Unive rsity of MIKE-SUCROSE VACCINE 00:00:00 [facility] 12 YRS+, BIVALENT Branch 0.3ML, IM, (PFIZER ARITA TOP BOOSTER) SARS-COV-2 COVID-19 2022-03-17 Completed Unive rsity of MIKE-SUCROSE VACCINE 00:00:00 [facility] 12 YRS+, BIVALENT Branch 0.3ML, IM, (PFIZER ARITA TOP BOOSTER) SARS-COV-2 COVID-19 2022-03-17 Completed Unive rsity of MIKE-SUCROSE VACCINE 00:00:00 [facility] 12 YRS+, BIVALENT Branch 0.3ML, IM, (PFIZER ARITA TOP BOOSTER) SARS-COV-2 COVID-19 2022-03-17 Completed Unive rsity of MIKE-SUCROSE VACCINE 00:00:00 [facility] 12 YRS+, BIVALENT Branch 0.3ML, IM, (PFIZER ARITA TOP BOOSTER) SARS-COV-2 COVID-19 2022-03-17 Completed Unive rsity of MIKE-SUCROSE VACCINE 00:00:00 [facility] 12 YRS+, BIVALENT Branch 0.3ML, IM, (PFIZER ARITA TOP BOOSTER) SARS-COV-2 COVID-19 2022-03-17 Completed Unive rsity of MIKE-SUCROSE VACCINE 00:00:00 [facility] 12 YRS+, BIVALENT Branch 0.3ML, IM, (PFIZER ARITA TOP BOOSTER) SARS-COV-2 COVID-19 2022-03-17 Completed Unive rsity of MIKE-SUCROSE VACCINE 00:00:00 [facility] 12 YRS+, BIVALENT Branch 0.3ML, IM, (PFIZER ARITA TOP BOOSTER) SARS-COV-2 COVID-19 2022-03-17 Completed Unive rsity of MIKE-SUCROSE VACCINE 00:00:00 [facility] 12 YRS+, BIVALENT Branch 0.3ML, IM, (PFIZER ARITA TOP BOOSTER) SARS-COV-2 COVID-19 2022-03-17 Completed Unive rsity of MIKE-SUCROSE VACCINE 00:00:00 [facility] 12 YRS+, BIVALENT Branch 0.3ML, IM, (PFIZER ARITA TOP BOOSTER) SARS-COV-2 COVID-19 2022-03-17 Completed Unive rsity of MIKE-SUCROSE VACCINE 00:00:00 [facility] 12 YRS+, BIVALENT Branch 0.3ML, IM, (PFIZER ARITA TOP BOOSTER) SARS-COV-2 COVID-19 2022-03-17 Completed Unive rsity of MIKE-SUCROSE VACCINE 00:00:00 [facility] 12 YRS+, BIVALENT Branch 0.3ML, IM, (PFIZER ARITA TOP BOOSTER) SARS-COV-2 COVID-19 2022-03-17 Completed Unive rsity of MIKE-SUCROSE VACCINE 00:00:00 [facility] 12 YRS+, BIVALENT Branch 0.3ML, IM, (PFIZER ARITA TOP BOOSTER) SARS-COV-2 COVID-19 2022-03-17 Completed Unive rsity of MIKE-SUCROSE VACCINE 00:00:00 [facility] 12 YRS+, BIVALENT Branch 0.3ML, IM, (PFIZER ARITA TOP BOOSTER) SARS-COV-2 COVID-19 2022-03-17 Completed Unive rsity of MIKE-SUCROSE VACCINE 00:00:00 [facility] 12 YRS+, BIVALENT Branch 0.3ML, IM, (PFIZER ARITA TOP BOOSTER) SARS-COV-2 COVID-19 2022-03-17 Completed Unive rsity of MIKE-SUCROSE VACCINE 00:00:00 [facility] 12 YRS+, BIVALENT Branch 0.3ML, IM, (PFIZER ARITA TOP BOOSTER) SARS-COV-2 COVID-19 2022-03-17 Completed Unive rsity of MIKE-SUCROSE VACCINE 00:00:00 [facility] 12 YRS+, BIVALENT Branch 0.3ML, IM, (PFIZER ARITA TOP BOOSTER) SARS-COV-2 COVID-19 2022-03-17 Completed Unive rsity of MIKE-SUCROSE VACCINE 00:00:00 [facility] 12 YRS+, BIVALENT Branch 0.3ML, IM, (PFIZER ARITA TOP BOOSTER) SARS-COV-2 COVID-19 2022-03-17 Completed Unive rsity of MIKE-SUCROSE VACCINE 00:00:00 [facility] 12 YRS+, BIVALENT Branch 0.3ML, IM, (PFIZER ARITA TOP BOOSTER) SARS-COV-2 COVID-19 2022-03-17 Completed Unive rsity of MIKE-SUCROSE VACCINE 00:00:00 [facility] 12 YRS+, BIVALENT Branch 0.3ML, IM, (PFIZER ARITA TOP BOOSTER) SARS-COV-2 COVID-19 2022-03-17 Completed Unive rsity of MIKE-SUCROSE VACCINE 00:00:00 [facility] 12 YRS+, BIVALENT Branch 0.3ML, IM, (PFIZER ARITA TOP BOOSTER) SARS-COV-2 COVID-19 2022-03-17 Completed Unive rsity of MIKE-SUCROSE VACCINE 00:00:00 [facility] 12 YRS+, BIVALENT Branch 0.3ML, IM, (PFIZER ARITA TOP BOOSTER) SARS-COV-2 COVID-19 2022-03-17 Completed Unive rsity of MIKE-SUCROSE VACCINE 00:00:00 [facility] 12 YRS+, BIVALENT Branch 0.3ML, IM, (PFIZER ARITA TOP BOOSTER) SARS-COV-2 COVID-19 2022-03-17 Completed Unive rsity of MIKE-SUCROSE VACCINE 00:00:00 [facility] 12 YRS+, BIVALENT Branch 0.3ML, IM, (PFIZER ARITA TOP BOOSTER) SARS-COV-2 COVID-19 2022-03-17 Completed Unive rsity of MIKE-SUCROSE VACCINE 00:00:00 [facility] 12 YRS+, BIVALENT Branch 0.3ML, IM, (PFIZER ARITA TOP BOOSTER) SARS-COV-2 COVID-19 2022-03-17 Completed Unive rsity of MIKE-SUCROSE VACCINE 00:00:00 [facility] 12 YRS+, BIVALENT Branch 0.3ML, IM, (PFIZER ARITA TOP BOOSTER) SARS-COV-2 COVID-19 2022-03-17 Completed Unive rsity of MIKE-SUCROSE VACCINE 00:00:00 [facility] 12 YRS+, BIVALENT Branch 0.3ML, IM, (PFIZER ARITA TOP BOOSTER) SARS-COV-2 COVID-19 2022-03-17 Completed Unive rsity of MIKE-SUCROSE VACCINE 00:00:00 [facility] 12 YRS+, BIVALENT Branch 0.3ML, IM, (PFIZER ARITA TOP BOOSTER) SARS-COV-2 COVID-19 2022-03-17 Completed Unive rsity of MIKE-SUCROSE VACCINE 00:00:00 [facility] 12 YRS+, BIVALENT Branch 0.3ML, IM, (PFIZER ARITA TOP BOOSTER) SARS-COV-2 COVID-19 2022-03-17 Completed Unive rsity of MIKE-SUCROSE VACCINE 00:00:00 [facility] 12 YRS+, BIVALENT Branch 0.3ML, IM, (PFIZER ARITA TOP BOOSTER) SARS-COV-2 COVID-19 2022-03-17 Completed Unive rsity of MIKE-SUCROSE VACCINE 00:00:00 [facility] 12 YRS+, BIVALENT Branch 0.3ML, IM, (PFIZER ARITA TOP BOOSTER) SARS-COV-2 COVID-19 2022-03-17 Completed Unive rsity of MIKE-SUCROSE VACCINE 00:00:00 [facility] 12 YRS+, BIVALENT Branch 0.3ML, IM, (PFIZER ARITA TOP BOOSTER) SARS-COV-2 COVID-19 2022-03-17 Completed Unive rsity of MIKE-SUCROSE VACCINE 00:00:00 [facility] 12 YRS+, BIVALENT Branch 0.3ML, IM, (PFIZER ARITA TOP) SARS-COV-2 COVID-19 2022-03-17 Completed Unive rsity of MIKE-SUCROSE VACCINE 00:00:00 [facility] 12 YRS+, BIVALENT Branch 0.3ML, IM, (PFIZER ARITA TOP) SARS-COV-2 COVID-19 2022-03-17 Completed Unive rsity of MIKE-SUCROSE VACCINE 00:00:00 [facility] 12 YRS+, BIVALENT Branch 0.3ML, IM, (PFIZER ARITA TOP) SARS-COV-2 COVID-19 2022-03-17 Completed Unive rsity of MIKE-SUCROSE VACCINE 00:00:00 [facility] 12 YRS+, BIVALENT Branch 0.3ML, IM, (PFIZER ARITA TOP) SARS-COV-2 COVID-19 2022-03-17 Completed Unive rsity of MIKE-SUCROSE VACCINE 00:00:00 [facility] 12 YRS+, BIVALENT Branch 0.3ML, IM, (PFIZER ARITA TOP) SARS-COV-2 COVID-19 2022-03-17 Completed Unive rsity of MIKE-SUCROSE VACCINE 00:00:00 [facility] 12 YRS+, BIVALENT Branch 0.3ML, IM, (PFIZER ARITA TOP) SARS-COV-2 COVID-19 2022-03-17 Completed Unive rsity of MIKE-SUCROSE VACCINE 00:00:00 [facility] 12 YRS+, BIVALENT Branch 0.3ML, IM, (PFIZER ARITA TOP) SARS-COV-2 COVID-19 2022-03-17 Completed Unive rsity of MIKE-SUCROSE VACCINE 00:00:00 [facility] 12 YRS+, BIVALENT Branch 0.3ML, IM, (PFIZER ARITA TOP) SARS-COV-2 COVID-19 2022-03-17 Completed Unive rsity of MIKE-SUCROSE VACCINE 00:00:00 [facility] 12 YRS+, BIVALENT Branch 0.3ML, IM, (PFIZER ARITA TOP) SARS-COV-2 COVID-19 2022-03-17 Completed Unive rsity of MIKE-SUCROSE VACCINE 00:00:00 [facility] 12 YRS+, BIVALENT Branch 0.3ML, IM, (PFIZER ARITA TOP) SARS-COV-2 COVID-19 2022-03-17 Completed Unive rsity of MIKE-SUCROSE VACCINE 00:00:00 [facility] 12 YRS+, BIVALENT Branch 0.3ML, IM, (PFIZER ARITA TOP) SARS-COV-2 COVID-19 2022-03-17 Completed Unive rsity of MIKE-SUCROSE VACCINE 00:00:00 [facility] 12 YRS+, BIVALENT Branch 0.3ML, IM, (PFIZER ARITA TOP) SARS-COV-2 COVID-19 2022-03-17 Completed Unive rsity of MIKE-SUCROSE VACCINE 00:00:00 [facility] 12 YRS+, BIVALENT Branch 0.3ML, IM, (PFIZER ARITA TOP) SARS-COV-2 COVID-19 2022-03-17 Completed Unive rsity of MIKE-SUCROSE VACCINE 00:00:00 [facility] 12 YRS+, BIVALENT Branch 0.3ML, IM, (PFIZER ARITA TOP) SARS-COV-2 COVID-19 2022-03-17 Completed Unive rsity of MIKE-SUCROSE VACCINE 00:00:00 [facility] 12 YRS+, BIVALENT Branch 0.3ML, IM, (PFIZER ARITA TOP) SARS-COV-2 COVID-19 2022-03-17 Completed Unive rsity of MIKE-SUCROSE VACCINE 00:00:00 [facility] 12 YRS+, BIVALENT Branch 0.3ML, IM, (PFIZER ARITA TOP) SARS-COV-2 COVID-19 2022-03-17 Completed Unive rsity of MIKE-SUCROSE VACCINE 00:00:00 [facility] 12 YRS+, BIVALENT Branch 0.3ML, IM, (PFIZER ARITA TOP) SARS-COV-2 COVID-19 2022-03-17 Completed Unive rsity of MIKE-SUCROSE VACCINE 00:00:00 [facility] 12 YRS+, BIVALENT Branch 0.3ML, IM, (PFIZER ARITA TOP) SARS-COV-2 COVID-19 2022-03-17 Completed Unive rsity of MIKE-SUCROSE VACCINE 00:00:00 [facility] 12 YRS+, BIVALENT Branch 0.3ML, IM, (PFIZER ARITA TOP) SARS-COV-2 COVID-19 2022-03-17 Completed Unive rsity of MIKE-SUCROSE VACCINE 00:00:00 [facility] 12 YRS+, BIVALENT Branch 0.3ML, IM, (PFIZER ARITA TOP) SARS-COV-2 COVID-19 2022-03-17 Completed Unive rsity of MIKE-SUCROSE VACCINE 00:00:00 [facility] 12 YRS+, BIVALENT Branch 0.3ML, IM, (PFIZER ARITA TOP) SARS-COV-2 COVID-19 2022-03-17 Completed Unive rsity of MIKE-SUCROSE VACCINE 00:00:00 [facility] [place] 12 YRS+, BIVALENT Branch 0.3ML, IM, (PFIZER ARITA TOP) SARS-COV-2 COVID-19 2022-03-17 Completed Unive rsity of MIKE-SUCROSE VACCINE 00:00:00 [facility] 12 YRS+, BIVALENT Branch 0.3ML, IM, (PFIZER ARITA TOP) SARS-COV-2 COVID-19 2022-03-17 Completed Unive rsity of MIKE-SUCROSE VACCINE 00:00:00 [facility] 12 YRS+, BIVALENT Branch 0.3ML, IM, (PFIZER ARITA TOP) SARS-COV-2 COVID-19 2022-03-17 Completed Unive rsity of MIKE-SUCROSE VACCINE 00:00:00 [facility] [place] 12 YRS+, BIVALENT Branch 0.3ML, IM, (PFIZER ARITA TOP) SARS-COV-2 COVID-19 2022-03-17 Completed Unive rsity of MIKE-SUCROSE VACCINE 00:00:00 [facility] [place] 12 YRS+, BIVALENT Branch 0.3ML, IM, (PFIZER ARITA TOP) SARS-COV-2 COVID-19 2022-03-17 Completed Unive rsity of MIKE-SUCROSE VACCINE 00:00:00 [facility] [place] 12 YRS+, BIVALENT Branch 0.3ML, IM, (PFIZER ARITA TOP) SARS-COV-2 COVID-19 2022-03-17 Completed Unive rsity of MIKE-SUCROSE VACCINE 00:00:00 [facility] [place] 12 YRS+, BIVALENT Branch 0.3ML, IM, (PFIZER ARITA TOP) SARS-COV-2 COVID-19 2022-03-17 Completed Unive rsity of MIKE-SUCROSE VACCINE 00:00:00 [facility] [place] 12 YRS+, BIVALENT Branch 0.3ML, IM, (PFIZER ARITA TOP) SARS-COV-2 COVID-19 2022-03-17 Completed Unive rsity of MIKE-SUCROSE VACCINE 00:00:00 [facility] [place] 12 YRS+, BIVALENT Branch 0.3ML, IM, (PFIZER ARITA TOP) SARS-COV-2 COVID-19 2022-03-17 Completed Unive rsity of MIKE-SUCROSE VACCINE 00:00:00 [facility] [place] 14 YRS+, BIVALENT Branch 0.3ML, IM, (PFIZER ARITA TOP) SARS-COV-2 COVID-19 2022-03-17 Completed Unive rsity of MIKE-SUCROSE VACCINE 00:00:00 [facility] [place] 14 YRS+, BIVALENT Branch 0.3ML, IM, (PFIZER ARITA TOP) SARS-COV-2 COVID-19 2022-03-17 Completed Unive rsity of MIKE-SUCROSE VACCINE 00:00:00 [facility] [place] 14 YRS+, BIVALENT Branch 0.3ML, IM, (PFIZER ARITA TOP) SARS-COV-2 COVID-19 2022-03-17 Completed Unive rsity of MIKE-SUCROSE VACCINE 00:00:00 [facility] [place] 14 YRS+, BIVALENT Branch 0.3ML, IM, (PFIZER ARITA TOP) SARS-COV-2 COVID-19 2022-03-17 Completed Unive rsity of MIKE-SUCROSE VACCINE 00:00:00 [facility] [place] 14 YRS+, BIVALENT Branch 0.3ML, IM, (PFIZER ARITA TOP) SARS-COV-2 COVID-19 2022-03-17 Completed Unive rsity of MIKE-SUCROSE VACCINE 00:00:00 [facility] [place] 14 YRS+, BIVALENT Branch 0.3ML, IM, (PFIZER ARITA TOP) SARS-COV-2 COVID-19 2022-03-17 Completed Unive rsity of MIKE-SUCROSE VACCINE 00:00:00 [facility] [place] 14 YRS+, BIVALENT Branch 0.3ML, IM, (PFIZER ARITA TOP) SARS-COV-2 COVID-19 2022-03-17 Completed Unive rsity of MIKE-SUCROSE VACCINE 00:00:00 Michelle lopez [facility] 14 YRS+, BIVALENT Branch 0.3ML, IM, (PFIZER ARITA TOP) SARS-COV-2 COVID-19 2021-06-24 Completed Unive rsity of PFIZER VACCINE 00:00:00 [facility] [place] Branch SARS-COV-2 COVID-19 2021-06-24 Completed Unive rsity of PFIZER VACCINE 00:00:00 [facility] [place] Branch SARS-COV-2 COVID-19 2021-06-24 Completed Unive rsity of PFIZER VACCINE 00:00:00 [facility] [place] Branch SARS-COV-2 COVID-19 2021-06-24 Completed Unive rsity of PFIZER VACCINE 00:00:00 [facility] SARS-COV-2 COVID-19 2021-06-24 Completed [facility] PFIZER VACCINE 00:00:00 [facility] SARS-COV-2 COVID-19 2021-06-24 Completed [facility] PFIZER VACCINE 00:00:00 [facility] SARS-COV-2 COVID-19 2021-06-24 Completed [facility] PFIZER VACCINE 00:00:00 [facility] SARS-COV-2 COVID-19 2021-06-24 Completed [facility] PFIZER VACCINE 00:00:00 [facility] SARS-COV-2 COVID-19 2021-06-24 Completed [facility] PFIZER VACCINE 00:00:00 [facility] SARS-COV-2 COVID-19 2021-06-24 Completed [facility] PFIZER VACCINE 00:00:00 [facility] SARS-COV-2 COVID-19 2021-06-24 Completed [facility] PFIZER VACCINE 00:00:00 [facility] SARS-COV-2 COVID-19 2021-06-24 Completed [facility] PFIZER VACCINE 00:00:00 [facility] SARS-COV-2 COVID-19 2021-06-24 Completed [facility] PFIZER VACCINE 00:00:00 [facility] SARS-COV-2 COVID-19 2021-06-24 Completed [facility] PFIZER VACCINE 00:00:00 [facility] SARS-COV-2 COVID-19 2021-06-24 Completed [facility] PFIZER VACCINE 00:00:00 [facility] SARS-COV-2 COVID-19 2021-06-24 Completed [facility] PFIZER VACCINE 00:00:00 [facility] SARS-COV-2 COVID-19 2021-06-24 Completed [facility] PFIZER VACCINE 00:00:00 [facility] SARS-COV-2 COVID-19 2021-06-24 Completed [facility] PFIZER VACCINE 00:00:00 [facility] SARS-COV-2 COVID-19 2021-06-24 Completed [facility] PFIZER VACCINE 00:00:00 [facility] SARS-COV-2 COVID-19 2021-06-24 Completed [facility] PFIZER VACCINE 00:00:00 [facility] SARS-COV-2 COVID-19 2021-06-24 Completed [facility] PFIZER VACCINE 00:00:00 [facility] SARS-COV-2 COVID-19 2021-06-24 Completed [facility] PFIZER VACCINE 00:00:00 [facility] SARS-COV-2 COVID-19 2021-06-24 Completed [facility] PFIZER VACCINE 00:00:00 [facility] SARS-COV-2 COVID-19 2021-06-24 Completed [facility] PFIZER VACCINE 00:00:00 [facility] SARS-COV-2 COVID-19 2021-06-24 Completed [facility] PFIZER VACCINE 00:00:00 [facility] SARS-COV-2 COVID-19 2021-06-24 Completed [facility] PFIZER VACCINE 00:00:00 [facility] SARS-COV-2 COVID-19 2021-06-24 Completed [facility] PFIZER VACCINE 00:00:00 [facility] SARS-COV-2 COVID-19 2021-06-24 Completed [facility] PFIZER VACCINE 00:00:00 [facility] SARS-COV-2 COVID-19 2021-06-24 Completed [facility] PFIZER VACCINE 00:00:00 [facility] SARS-COV-2 COVID-19 2021-06-24 Completed [facility] PFIZER VACCINE 00:00:00 [facility] SARS-COV-2 COVID-19 2021-06-24 Completed [facility] PFIZER VACCINE 00:00:00 [facility] SARS-COV-2 COVID-19 2021-06-24 Completed [facility] PFIZER VACCINE 00:00:00 [facility] SARS-COV-2 COVID-19 2021-06-24 Completed [facility] PFIZER VACCINE 00:00:00 [facility] SARS-COV-2 COVID-19 2021-06-24 Completed [facility] PFIZER VACCINE 00:00:00 [facility] SARS-COV-2 COVID-19 2021-06-24 Completed [facility] PFIZER VACCINE 00:00:00 [facility] SARS-COV-2 COVID-19 2021-06-24 Completed [facility] PFIZER VACCINE 00:00:00 [facility] SARS-COV-2 COVID-19 2021-06-24 Completed [facility] PFIZER VACCINE 00:00:00 [facility] SARS-COV-2 COVID-19 2021-06-24 Completed [facility] PFIZER VACCINE 00:00:00 [facility] SARS-COV-2 COVID-19 2021-06-24 Completed [facility] PFIZER VACCINE 00:00:00 [facility] SARS-COV-2 COVID-19 2021-06-24 Completed [facility] PFIZER VACCINE 00:00:00 [facility] SARS-COV-2 COVID-19 2021-06-24 Completed [facility] PFIZER VACCINE 00:00:00 [facility] SARS-COV-2 COVID-19 2021-06-24 Completed [facility] PFIZER VACCINE 00:00:00 [facility] SARS-COV-2 COVID-19 2021-06-24 Completed [facility] PFIZER VACCINE 00:00:00 [facility] SARS-COV-2 COVID-19 2021-06-24 Completed [facility] PFIZER VACCINE 00:00:00 [facility] SARS-COV-2 COVID-19 2021-06-24 Completed [facility] PFIZER VACCINE 00:00:00 [facility] SARS-COV-2 COVID-19 2021-06-24 Completed [facility] PFIZER VACCINE 00:00:00 [facility] SARS-COV-2 COVID-19 2021-06-24 Completed [facility] PFIZER VACCINE 00:00:00 [facility] SARS-COV-2 COVID-19 2021-06-24 Completed [facility] PFIZER VACCINE 00:00:00 [facility] SARS-COV-2 COVID-19 2021-06-24 Completed [facility] PFIZER VACCINE 00:00:00 [facility] SARS-COV-2 COVID-19 2021-06-24 Completed [facility] PFIZER VACCINE 00:00:00 [facility] SARS-COV-2 COVID-19 2021-06-24 Completed [facility] PFIZER VACCINE 00:00:00 [facility] SARS-COV-2 COVID-19 2021-06-24 Completed [facility] PFIZER VACCINE 00:00:00 [facility] SARS-COV-2 COVID-19 2021-06-24 Completed [facility] PFIZER VACCINE 00:00:00 [facility] SARS-COV-2 COVID-19 2021-06-24 Completed [facility] PFIZER VACCINE 00:00:00 [facility] SARS-COV-2 COVID-19 2021-06-24 Completed [facility] PFIZER VACCINE 00:00:00 [facility] SARS-COV-2 COVID-19 2021-06-24 Completed [facility] PFIZER VACCINE 00:00:00 [facility] SARS-COV-2 COVID-19 2021-06-24 Completed [facility] PFIZER VACCINE 00:00:00 [facility] SARS-COV-2 COVID-19 2021-06-24 Completed [facility] PFIZER VACCINE 00:00:00 [facility] SARS-COV-2 COVID-19 2021-06-24 Completed [facility] PFIZER VACCINE 00:00:00 [facility] SARS-COV-2 COVID-19 2021-06-24 Completed [facility] PFIZER VACCINE 00:00:00 [facility] SARS-COV-2 COVID-19 2021-06-24 Completed [facility] PFIZER VACCINE 00:00:00 [facility] SARS-COV-2 COVID-19 2021-06-24 Completed [facility] PFIZER VACCINE 00:00:00 [facility] SARS-COV-2 COVID-19 2021-06-24 Completed [facility] PFIZER VACCINE 00:00:00 [facility] SARS-COV-2 COVID-19 2021-06-24 Completed [facility] PFIZER VACCINE 00:00:00 [facility] SARS-COV-2 COVID-19 2021-06-24 Completed [facility] PFIZER VACCINE 00:00:00 [facility] SARS-COV-2 COVID-19 2021-06-24 Completed [facility] PFIZER VACCINE 00:00:00 [facility] SARS-COV-2 COVID-19 2021-06-24 Completed [facility] PFIZER VACCINE 00:00:00 [facility] SARS-COV-2 COVID-19 2021-06-24 Completed [facility] PFIZER VACCINE 00:00:00 [facility] SARS-COV-2 COVID-19 2021-06-24 Completed [facility] PFIZER VACCINE 00:00:00 [facility] SARS-COV-2 COVID-19 2021-06-24 Completed [facility] PFIZER VACCINE 00:00:00 [facility] SARS-COV-2 COVID-19 2021-06-24 Completed [facility] PFIZER VACCINE 00:00:00 [facility] SARS-COV-2 COVID-19 2021-06-24 Completed [facility] PFIZER VACCINE 00:00:00 [facility] SARS-COV-2 COVID-19 2021-06-24 Completed [facility] PFIZER VACCINE 00:00:00 [facility] SARS-COV-2 COVID-19 2021-06-24 Completed [facility] PFIZER VACCINE 00:00:00 [facility] SARS-COV-2 COVID-19 2021-06-24 Completed [facility] PFIZER VACCINE 00:00:00 [facility] SARS-COV-2 COVID-19 2021-06-24 Completed [facility] PFIZER VACCINE 00:00:00 [facility] SARS-COV-2 COVID-19 2021-06-24 Completed [facility] PFIZER VACCINE 00:00:00 [facility] SARS-COV-2 COVID-19 2021-06-24 Completed [facility] PFIZER VACCINE 00:00:00 [facility] SARS-COV-2 COVID-19 2021-06-24 Completed [facility] PFIZER VACCINE 00:00:00 [facility] SARS-COV-2 COVID-19 2021-06-24 Completed [facility] PFIZER VACCINE 00:00:00 [facility] SARS-COV-2 COVID-19 2021-06-24 Completed [facility] PFIZER VACCINE 00:00:00 [facility] SARS-COV-2 COVID-19 2021-06-24 Completed [facility] PFIZER VACCINE 00:00:00 [facility] SARS-COV-2 COVID-19 2021-06-24 Completed [facility] PFIZER VACCINE 00:00:00 [facility] SARS-COV-2 COVID-19 2021-06-24 Completed [facility] PFIZER VACCINE 00:00:00 [facility] SARS-COV-2 COVID-19 2021-06-24 Completed [facility] PFIZER VACCINE 00:00:00 [facility] SARS-COV-2 COVID-19 2021-06-24 Completed [facility] PFIZER VACCINE 00:00:00 [facility] SARS-COV-2 COVID-19 2021-06-24 Completed [facility] PFIZER VACCINE 00:00:00 [facility] SARS-COV-2 COVID-19 2021-06-24 Completed [facility] PFIZER VACCINE 00:00:00 [facility] SARS-COV-2 COVID-19 2021-06-24 Completed [facility] PFIZER VACCINE 00:00:00 [facility] SARS-COV-2 COVID-19 2021-06-24 Completed [facility] PFIZER VACCINE 00:00:00 [facility] SARS-COV-2 COVID-19 2021-06-24 Completed [facility] PFIZER VACCINE 00:00:00 [facility] SARS-COV-2 COVID-19 2021-06-24 Completed [facility] PFIZER VACCINE 00:00:00 [facility] SARS-COV-2 COVID-19 2021-06-24 Completed [facility] PFIZER VACCINE 00:00:00 [facility] SARS-COV-2 COVID-19 2021-06-24 Completed [facility] PFIZER VACCINE 00:00:00 [facility] SARS-COV-2 COVID-19 2021-06-24 Completed [facility] PFIZER VACCINE 00:00:00 [facility] SARS-COV-2 COVID-19 2021-06-24 Completed [facility] PFIZER VACCINE 00:00:00 [facility] SARS-COV-2 COVID-19 2021-06-24 Completed [facility] PFIZER VACCINE 00:00:00 [facility] SARS-COV-2 COVID-19 2021-06-24 Completed [facility] PFIZER VACCINE 00:00:00 [facility] SARS-COV-2 COVID-19 2021-06-24 Completed [facility] PFIZER VACCINE 00:00:00 [facility] SARS-COV-2 COVID-19 2021-06-24 Completed [facility] PFIZER VACCINE 00:00:00 [facility] SARS-COV-2 COVID-19 2021-06-24 Completed [facility] PFIZER VACCINE 00:00:00 [facility] SARS-COV-2 COVID-19 2021-06-24 Completed [facility] PFIZER VACCINE 00:00:00 [facility] SARS-COV-2 COVID-19 2021-06-24 Completed [facility] PFIZER VACCINE 00:00:00 [facility] SARS-COV-2 COVID-19 2021-06-24 Completed [facility] PFIZER VACCINE 00:00:00 [facility] SARS-COV-2 COVID-19 2021-06-24 Completed [facility] PFIZER VACCINE 00:00:00 [facility] SARS-COV-2 COVID-19 2020-11-21 Completed [facility] PFIZER VACCINE 00:00:00 [facility] SARS-COV-2 COVID-19 2020-11-21 Completed [facility] PFIZER VACCINE 00:00:00 [facility] SARS-COV-2 COVID-19 2020-11-21 Completed [facility] PFIZER VACCINE 00:00:00 [facility] SARS-COV-2 COVID-19 2020-11-21 Completed [facility] PFIZER VACCINE 00:00:00 [facility] SARS-COV-2 COVID-19 2020-11-21 Completed [facility] PFIZER VACCINE 00:00:00 [facility] SARS-COV-2 COVID-19 2020-11-21 Completed [facility] PFIZER VACCINE 00:00:00 [facility] SARS-COV-2 COVID-19 2020-11-21 Completed [facility] PFIZER VACCINE 00:00:00 [facility] SARS-COV-2 COVID-19 2020-11-21 Completed [facility] PFIZER VACCINE 00:00:00 [facility] SARS-COV-2 COVID-19 2020-11-21 Completed [facility] PFIZER VACCINE 00:00:00 [facility] SARS-COV-2 COVID-19 2020-11-21 Completed [facility] PFIZER VACCINE 00:00:00 [facility] SARS-COV-2 COVID-19 2020-11-21 Completed [facility] PFIZER VACCINE 00:00:00 [facility] SARS-COV-2 COVID-19 2020-11-21 Completed [facility] PFIZER VACCINE 00:00:00 [facility] SARS-COV-2 COVID-19 2020-11-21 Completed [facility] PFIZER VACCINE 00:00:00 [facility] SARS-COV-2 COVID-19 2020-11-21 Completed [facility] PFIZER VACCINE 00:00:00 [facility] SARS-COV-2 COVID-19 2020-11-21 Completed [facility] PFIZER VACCINE 00:00:00 [facility] SARS-COV-2 COVID-19 2020-11-21 Completed [facility] PFIZER VACCINE 00:00:00 [facility] SARS-COV-2 COVID-19 2020-11-21 Completed [facility] PFIZER VACCINE 00:00:00 [facility] SARS-COV-2 COVID-19 2020-11-21 Completed [facility] PFIZER VACCINE 00:00:00 [facility] SARS-COV-2 COVID-19 2020-11-21 Completed [facility] PFIZER VACCINE 00:00:00 [facility] SARS-COV-2 COVID-19 2020-11-21 Completed [facility] PFIZER VACCINE 00:00:00 [facility] SARS-COV-2 COVID-19 2020-11-21 Completed [facility] PFIZER VACCINE 00:00:00 [facility] SARS-COV-2 COVID-19 2020-11-21 Completed [facility] PFIZER VACCINE 00:00:00 [facility] SARS-COV-2 COVID-19 2020-11-21 Completed [facility] PFIZER VACCINE 00:00:00 [facility] SARS-COV-2 COVID-19 2020-11-21 Completed [facility] PFIZER VACCINE 00:00:00 [facility] SARS-COV-2 COVID-19 2020-11-21 Completed [facility] PFIZER VACCINE 00:00:00 [facility] SARS-COV-2 COVID-19 2020-11-21 Completed [facility] PFIZER VACCINE 00:00:00 [facility] SARS-COV-2 COVID-19 2020-11-21 Completed [facility] PFIZER VACCINE 00:00:00 [facility] SARS-COV-2 COVID-19 2020-11-21 Completed [facility] PFIZER VACCINE 00:00:00 [facility] SARS-COV-2 COVID-19 2020-11-21 Completed [facility] PFIZER VACCINE 00:00:00 [facility] SARS-COV-2 COVID-19 2020-11-21 Completed [facility] PFIZER VACCINE 00:00:00 [facility] SARS-COV-2 COVID-19 2020-11-21 Completed [facility] PFIZER VACCINE 00:00:00 [facility] SARS-COV-2 COVID-19 2020-11-21 Completed [facility] PFIZER VACCINE 00:00:00 [facility] SARS-COV-2 COVID-19 2020-11-21 Completed [facility] PFIZER VACCINE 00:00:00 [facility] SARS-COV-2 COVID-19 2020-11-21 Completed [facility] PFIZER VACCINE 00:00:00 [facility] SARS-COV-2 COVID-19 2020-11-21 Completed [facility] PFIZER VACCINE 00:00:00 [facility] SARS-COV-2 COVID-19 2020-11-21 Completed [facility] PFIZER VACCINE 00:00:00 [facility] SARS-COV-2 COVID-19 2020-11-21 Completed [facility] PFIZER VACCINE 00:00:00 [facility] SARS-COV-2 COVID-19 2020-11-21 Completed [facility] PFIZER VACCINE 00:00:00 [facility] SARS-COV-2 COVID-19 2020-11-21 Completed [facility] PFIZER VACCINE 00:00:00 [facility] SARS-COV-2 COVID-19 2020-11-21 Completed [facility] PFIZER VACCINE 00:00:00 [facility] SARS-COV-2 COVID-19 2020-11-21 Completed [facility] PFIZER VACCINE 00:00:00 [facility] SARS-COV-2 COVID-19 2020-11-21 Completed [facility] PFIZER VACCINE 00:00:00 [facility] SARS-COV-2 COVID-19 2020-11-21 Completed [facility] PFIZER VACCINE 00:00:00 [facility] SARS-COV-2 COVID-19 2020-11-21 Completed [facility] PFIZER VACCINE 00:00:00 [facility] SARS-COV-2 COVID-19 2020-11-21 Completed [facility] PFIZER VACCINE 00:00:00 [facility] SARS-COV-2 COVID-19 2020-11-21 Completed [facility] PFIZER VACCINE 00:00:00 [facility] SARS-COV-2 COVID-19 2020-11-21 Completed [facility] PFIZER VACCINE 00:00:00 [facility] SARS-COV-2 COVID-19 2020-11-21 Completed [facility] PFIZER VACCINE 00:00:00 [facility] SARS-COV-2 COVID-19 2020-11-21 Completed [facility] PFIZER VACCINE 00:00:00 [facility] SARS-COV-2 COVID-19 2020-11-21 Completed [facility] PFIZER VACCINE 00:00:00 [facility] SARS-COV-2 COVID-19 2020-11-21 Completed [facility] PFIZER VACCINE 00:00:00 [facility] SARS-COV-2 COVID-19 2020-11-21 Completed [facility] PFIZER VACCINE 00:00:00 [facility] SARS-COV-2 COVID-19 2020-11-21 Completed [facility] PFIZER VACCINE 00:00:00 [facility] SARS-COV-2 COVID-19 2020-11-21 Completed [facility] PFIZER VACCINE 00:00:00 [facility] SARS-COV-2 COVID-19 2020-11-21 Completed [facility] PFIZER VACCINE 00:00:00 [facility] SARS-COV-2 COVID-19 2020-11-21 Completed [facility] PFIZER VACCINE 00:00:00 [facility] SARS-COV-2 COVID-19 2020-11-21 Completed [facility] PFIZER VACCINE 00:00:00 [facility] SARS-COV-2 COVID-19 2020-11-21 Completed [facility] PFIZER VACCINE 00:00:00 [facility] SARS-COV-2 COVID-19 2020-11-21 Completed [facility] PFIZER VACCINE 00:00:00 [facility] SARS-COV-2 COVID-19 2020-11-21 Completed [facility] PFIZER VACCINE 00:00:00 [facility] SARS-COV-2 COVID-19 2020-11-21 Completed [facility] PFIZER VACCINE 00:00:00 [facility] SARS-COV-2 COVID-19 2020-11-21 Completed [facility] PFIZER VACCINE 00:00:00 [facility] SARS-COV-2 COVID-19 2020-11-21 Completed [facility] PFIZER VACCINE 00:00:00 [facility] SARS-COV-2 COVID-19 2020-11-21 Completed [facility] PFIZER VACCINE 00:00:00 [facility] SARS-COV-2 COVID-19 2020-11-21 Completed [facility] PFIZER VACCINE 00:00:00 [facility] SARS-COV-2 COVID-19 2020-11-21 Completed [facility] PFIZER VACCINE 00:00:00 [facility] SARS-COV-2 COVID-19 2020-11-21 Completed [facility] PFIZER VACCINE 00:00:00 [facility] SARS-COV-2 COVID-19 2020-11-21 Completed [facility] PFIZER VACCINE 00:00:00 [facility] SARS-COV-2 COVID-19 2020-11-21 Completed [facility] PFIZER VACCINE 00:00:00 [facility] SARS-COV-2 COVID-19 2020-11-21 Completed [facility] PFIZER VACCINE 00:00:00 [facility] SARS-COV-2 COVID-19 2020-11-21 Completed [facility] PFIZER VACCINE 00:00:00 [facility] SARS-COV-2 COVID-19 2020-11-21 Completed [facility] PFIZER VACCINE 00:00:00 [facility] SARS-COV-2 COVID-19 2020-11-21 Completed [facility] PFIZER VACCINE 00:00:00 [facility] SARS-COV-2 COVID-19 2020-11-21 Completed [facility] PFIZER VACCINE 00:00:00 [facility] SARS-COV-2 COVID-19 2020-11-21 Completed [facility] PFIZER VACCINE 00:00:00 [facility] SARS-COV-2 COVID-19 2020-11-21 Completed [facility] PFIZER VACCINE 00:00:00 [facility] SARS-COV-2 COVID-19 2020-11-21 Completed [facility] PFIZER VACCINE 00:00:00 [facility] SARS-COV-2 COVID-19 2020-11-21 Completed [facility] PFIZER VACCINE 00:00:00 [facility] SARS-COV-2 COVID-19 2020-11-21 Completed [facility] PFIZER VACCINE 00:00:00 [facility] SARS-COV-2 COVID-19 2020-11-21 Completed [facility] PFIZER VACCINE 00:00:00 [facility] SARS-COV-2 COVID-19 2020-11-21 Completed [facility] PFIZER VACCINE 00:00:00 [facility] SARS-COV-2 COVID-19 2020-11-21 Completed [facility] PFIZER VACCINE 00:00:00 [facility] SARS-COV-2 COVID-19 2020-11-21 Completed [facility] PFIZER VACCINE 00:00:00 [facility] SARS-COV-2 COVID-19 2020-11-21 Completed [facility] PFIZER VACCINE 00:00:00 [facility] SARS-COV-2 COVID-19 2020-11-21 Completed [facility] PFIZER VACCINE 00:00:00 [facility] SARS-COV-2 COVID-19 2020-11-21 Completed [facility] PFIZER VACCINE 00:00:00 [facility] SARS-COV-2 COVID-19 2020-11-21 Completed [facility] PFIZER VACCINE 00:00:00 [facility] SARS-COV-2 COVID-19 2020-11-21 Completed [facility] PFIZER VACCINE 00:00:00 [facility] SARS-COV-2 COVID-19 2020-11-21 Completed [facility] PFIZER VACCINE 00:00:00 [facility] SARS-COV-2 COVID-19 2020-11-21 Completed [facility] PFIZER VACCINE 00:00:00 [facility] SARS-COV-2 COVID-19 2020-11-21 Completed [facility] PFIZER VACCINE 00:00:00 [facility] SARS-COV-2 COVID-19 2020-11-21 Completed [facility] PFIZER VACCINE 00:00:00 [facility] SARS-COV-2 COVID-19 2020-11-21 Completed [facility] PFIZER VACCINE 00:00:00 [facility] SARS-COV-2 COVID-19 2020-11-21 Completed [facility] PFIZER VACCINE 00:00:00 [facility] SARS-COV-2 COVID-19 2020-11-21 Completed [facility] PFIZER VACCINE 00:00:00 [facility] SARS-COV-2 COVID-19 2020-11-21 Completed [facility] PFIZER VACCINE 00:00:00 [facility] SARS-COV-2 COVID-19 2020-11-21 Completed [facility] PFIZER VACCINE 00:00:00 [facility] SARS-COV-2 COVID-19 2020-11-21 Completed [facility] PFIZER VACCINE 00:00:00 [facility] SARS-COV-2 COVID-19 2020-11-21 Completed [facility] PFIZER VACCINE 00:00:00 [facility] SARS-COV-2 COVID-19 2020-11-21 Completed [facility] PFIZER VACCINE 00:00:00 [facility] SARS-COV-2 COVID-19 2020-11-21 Completed [facility] PFIZER VACCINE 00:00:00 [facility] SARS-COV-2 COVID-19 2020-11-21 Completed [facility] PFIZER VACCINE 00:00:00 [facility] SARS-COV-2 COVID-19 2020-11-21 Completed [facility] PFIZER VACCINE 00:00:00 [facility] SARS-COV-2 COVID-19 2020-11-21 Completed [facility] PFIZER VACCINE 00:00:00 [facility] SARS-COV-2 COVID-19 2020-11-21 Completed [facility] PFIZER VACCINE 00:00:00 [facility] SARS-COV-2 COVID-19 2020-10-24 Completed [facility] PFIZER VACCINE 00:00:00 [facility] SARS-COV-2 COVID-19 2020-10-24 Completed [facility] PFIZER VACCINE 00:00:00 [facility] SARS-COV-2 COVID-19 2020-10-24 Completed [facility] PFIZER VACCINE 00:00:00 [facility] SARS-COV-2 COVID-19 2020-10-24 Completed [facility] PFIZER VACCINE 00:00:00 [facility] SARS-COV-2 COVID-19 2020-10-24 Completed [facility] PFIZER VACCINE 00:00:00 [facility] SARS-COV-2 COVID-19 2020-10-24 Completed [facility] PFIZER VACCINE 00:00:00 [facility] SARS-COV-2 COVID-19 2020-10-24 Completed [facility] PFIZER VACCINE 00:00:00 [facility] SARS-COV-2 COVID-19 2020-10-24 Completed [facility] PFIZER VACCINE 00:00:00 [facility] SARS-COV-2 COVID-19 2020-10-24 Completed [facility] PFIZER VACCINE 00:00:00 [facility] SARS-COV-2 COVID-19 2020-10-24 Completed [facility] PFIZER VACCINE 00:00:00 [facility] SARS-COV-2 COVID-19 2020-10-24 Completed [facility] PFIZER VACCINE 00:00:00 [facility] SARS-COV-2 COVID-19 2020-10-24 Completed [facility] PFIZER VACCINE 00:00:00 [facility] SARS-COV-2 COVID-19 2020-10-24 Completed [facility] PFIZER VACCINE 00:00:00 [facility] SARS-COV-2 COVID-19 2020-10-24 Completed [facility] PFIZER VACCINE 00:00:00 [facility] SARS-COV-2 COVID-19 2020-10-24 Completed [facility] PFIZER VACCINE 00:00:00 [facility] SARS-COV-2 COVID-19 2020-10-24 Completed [facility] PFIZER VACCINE 00:00:00 [facility] SARS-COV-2 COVID-19 2020-10-24 Completed [facility] PFIZER VACCINE 00:00:00 [facility] SARS-COV-2 COVID-19 2020-10-24 Completed [facility] PFIZER VACCINE 00:00:00 [facility] SARS-COV-2 COVID-19 2020-10-24 Completed [facility] PFIZER VACCINE 00:00:00 [facility] SARS-COV-2 COVID-19 2020-10-24 Completed [facility] PFIZER VACCINE 00:00:00 [facility] SARS-COV-2 COVID-19 2020-10-24 Completed [facility] PFIZER VACCINE 00:00:00 [facility] SARS-COV-2 COVID-19 2020-10-24 Completed [facility] PFIZER VACCINE 00:00:00 [facility] SARS-COV-2 COVID-19 2020-10-24 Completed [facility] PFIZER VACCINE 00:00:00 [facility] SARS-COV-2 COVID-19 2020-10-24 Completed [facility] PFIZER VACCINE 00:00:00 [facility] SARS-COV-2 COVID-19 2020-10-24 Completed [facility] PFIZER VACCINE 00:00:00 [facility] SARS-COV-2 COVID-19 2020-10-24 Completed [facility] PFIZER VACCINE 00:00:00 [facility] SARS-COV-2 COVID-19 2020-10-24 Completed [facility] PFIZER VACCINE 00:00:00 [facility] SARS-COV-2 COVID-19 2020-10-24 Completed [facility] PFIZER VACCINE 00:00:00 [facility] SARS-COV-2 COVID-19 2020-10-24 Completed [facility] PFIZER VACCINE 00:00:00 [facility] SARS-COV-2 COVID-19 2020-10-24 Completed [facility] PFIZER VACCINE 00:00:00 [facility] SARS-COV-2 COVID-19 2020-10-24 Completed [facility] PFIZER VACCINE 00:00:00 [facility] SARS-COV-2 COVID-19 2020-10-24 Completed [facility] PFIZER VACCINE 00:00:00 [facility] SARS-COV-2 COVID-19 2020-10-24 Completed [facility] PFIZER VACCINE 00:00:00 [facility] SARS-COV-2 COVID-19 2020-10-24 Completed [facility] PFIZER VACCINE 00:00:00 [facility] SARS-COV-2 COVID-19 2020-10-24 Completed [facility] PFIZER VACCINE 00:00:00 [facility] SARS-COV-2 COVID-19 2020-10-24 Completed [facility] PFIZER VACCINE 00:00:00 [facility] SARS-COV-2 COVID-19 2020-10-24 Completed [facility] PFIZER VACCINE 00:00:00 [facility] SARS-COV-2 COVID-19 2020-10-24 Completed [facility] PFIZER VACCINE 00:00:00 [facility] SARS-COV-2 COVID-19 2020-10-24 Completed [facility] PFIZER VACCINE 00:00:00 [facility] SARS-COV-2 COVID-19 2020-10-24 Completed [facility] PFIZER VACCINE 00:00:00 [facility] SARS-COV-2 COVID-19 2020-10-24 Completed [facility] PFIZER VACCINE 00:00:00 [facility] SARS-COV-2 COVID-19 2020-10-24 Completed [facility] PFIZER VACCINE 00:00:00 [facility] SARS-COV-2 COVID-19 2020-10-24 Completed [facility] PFIZER VACCINE 00:00:00 [facility] SARS-COV-2 COVID-19 2020-10-24 Completed [facility] PFIZER VACCINE 00:00:00 [facility] SARS-COV-2 COVID-19 2020-10-24 Completed [facility] PFIZER VACCINE 00:00:00 [facility] SARS-COV-2 COVID-19 2020-10-24 Completed [facility] PFIZER VACCINE 00:00:00 [facility] SARS-COV-2 COVID-19 2020-10-24 Completed [facility] PFIZER VACCINE 00:00:00 [facility] SARS-COV-2 COVID-19 2020-10-24 Completed [facility] PFIZER VACCINE 00:00:00 [facility] SARS-COV-2 COVID-19 2020-10-24 Completed [facility] PFIZER VACCINE 00:00:00 [facility] SARS-COV-2 COVID-19 2020-10-24 Completed [facility] PFIZER VACCINE 00:00:00 [facility] SARS-COV-2 COVID-19 2020-10-24 Completed [facility] PFIZER VACCINE 00:00:00 [facility] SARS-COV-2 COVID-19 2020-10-24 Completed [facility] PFIZER VACCINE 00:00:00 [facility] SARS-COV-2 COVID-19 2020-10-24 Completed [facility] PFIZER VACCINE 00:00:00 [facility] SARS-COV-2 COVID-19 2020-10-24 Completed [facility] PFIZER VACCINE 00:00:00 [facility] SARS-COV-2 COVID-19 2020-10-24 Completed [facility] PFIZER VACCINE 00:00:00 [facility] SARS-COV-2 COVID-19 2020-10-24 Completed [facility] PFIZER VACCINE 00:00:00 [facility] SARS-COV-2 COVID-19 2020-10-24 Completed [facility] PFIZER VACCINE 00:00:00 [facility] SARS-COV-2 COVID-19 2020-10-24 Completed [facility] PFIZER VACCINE 00:00:00 [facility] SARS-COV-2 COVID-19 2020-10-24 Completed [facility] PFIZER VACCINE 00:00:00 [facility] SARS-COV-2 COVID-19 2020-10-24 Completed [facility] PFIZER VACCINE 00:00:00 [facility] SARS-COV-2 COVID-19 2020-10-24 Completed [facility] PFIZER VACCINE 00:00:00 [facility] SARS-COV-2 COVID-19 2020-10-24 Completed [facility] PFIZER VACCINE 00:00:00 [facility] SARS-COV-2 COVID-19 2020-10-24 Completed [facility] PFIZER VACCINE 00:00:00 [facility] SARS-COV-2 COVID-19 2020-10-24 Completed [facility] PFIZER VACCINE 00:00:00 [facility] SARS-COV-2 COVID-19 2020-10-24 Completed [facility] PFIZER VACCINE 00:00:00 [facility] SARS-COV-2 COVID-19 2020-10-24 Completed [facility] PFIZER VACCINE 00:00:00 [facility] SARS-COV-2 COVID-19 2020-10-24 Completed [facility] PFIZER VACCINE 00:00:00 [facility] SARS-COV-2 COVID-19 2020-10-24 Completed [facility] PFIZER VACCINE 00:00:00 [facility] SARS-COV-2 COVID-19 2020-10-24 Completed [facility] PFIZER VACCINE 00:00:00 [facility] SARS-COV-2 COVID-19 2020-10-24 Completed [facility] PFIZER VACCINE 00:00:00 [facility] SARS-COV-2 COVID-19 2020-10-24 Completed [facility] PFIZER VACCINE 00:00:00 [facility] SARS-COV-2 COVID-19 2020-10-24 Completed [facility] PFIZER VACCINE 00:00:00 [facility] SARS-COV-2 COVID-19 2020-10-24 Completed [facility] PFIZER VACCINE 00:00:00 [facility] SARS-COV-2 COVID-19 2020-10-24 Completed [facility] PFIZER VACCINE 00:00:00 [facility] SARS-COV-2 COVID-19 2020-10-24 Completed [facility] PFIZER VACCINE 00:00:00 [facility] SARS-COV-2 COVID-19 2020-10-24 Completed [facility] PFIZER VACCINE 00:00:00 [facility] SARS-COV-2 COVID-19 2020-10-24 Completed [facility] PFIZER VACCINE 00:00:00 [facility] SARS-COV-2 COVID-19 2020-10-24 Completed [facility] PFIZER VACCINE 00:00:00 [facility] SARS-COV-2 COVID-19 2020-10-24 Completed [facility] PFIZER VACCINE 00:00:00 [facility] SARS-COV-2 COVID-19 2020-10-24 Completed [facility] PFIZER VACCINE 00:00:00 [facility] SARS-COV-2 COVID-19 2020-10-24 Completed [facility] PFIZER VACCINE 00:00:00 [facility] SARS-COV-2 COVID-19 2020-10-24 Completed [facility] PFIZER VACCINE 00:00:00 [facility] SARS-COV-2 COVID-19 2020-10-24 Completed [facility] PFIZER VACCINE 00:00:00 [facility] SARS-COV-2 COVID-19 2020-10-24 Completed [facility] PFIZER VACCINE 00:00:00 [facility] SARS-COV-2 COVID-19 2020-10-24 Completed [facility] PFIZER VACCINE 00:00:00 [facility] SARS-COV-2 COVID-19 2020-10-24 Completed [facility] PFIZER VACCINE 00:00:00 [facility] SARS-COV-2 COVID-19 2020-10-24 Completed [facility] PFIZER VACCINE 00:00:00 [facility] SARS-COV-2 COVID-19 2020-10-24 Completed [facility] PFIZER VACCINE 00:00:00 [facility] SARS-COV-2 COVID-19 2020-10-24 Completed [facility] PFIZER VACCINE 00:00:00 [facility] SARS-COV-2 COVID-19 2020-10-24 Completed [facility] PFIZER VACCINE 00:00:00 [facility] SARS-COV-2 COVID-19 2020-10-24 Completed [facility] PFIZER VACCINE 00:00:00 [facility] SARS-COV-2 COVID-19 2020-10-24 Completed [facility] PFIZER VACCINE 00:00:00 [facility] SARS-COV-2 COVID-19 2020-10-24 Completed [facility] PFIZER VACCINE 00:00:00 [facility] SARS-COV-2 COVID-19 2020-10-24 Completed [facility] PFIZER VACCINE 00:00:00 [facility] SARS-COV-2 COVID-19 2020-10-24 Completed [facility] PFIZER VACCINE 00:00:00 [facility] SARS-COV-2 COVID-19 2020-10-24 Completed [facility] PFIZER VACCINE 00:00:00 [facility] SARS-COV-2 COVID-19 2020-10-24 Completed [facility] PFIZER VACCINE 00:00:00 [facility] SARS-COV-2 COVID-19 2020-10-24 Completed [facility] PFIZER VACCINE 00:00:00 [facility] SARS-COV-2 COVID-19 2020-10-24 Completed [facility] PFIZER VACCINE 00:00:00 [facility] SARS-COV-2 COVID-19 2020-10-24 Completed [facility] PFIZER VACCINE 00:00:00 [facility] SARS-COV-2 COVID-19 2020-10-24 Completed [facility] PFIZER VACCINE 00:00:00 [facility] SARS-COV-2 COVID-19 2020-10-24 Completed [facility] PFIZER VACCINE 00:00:00 [facility] SARS-COV-2 COVID-19 2020-10-24 Completed [facility] PFIZER VACCINE 00:00:00 [facility] SARS-COV-2 COVID-19 2020-10-24 Completed [facility] PFIZER VACCINE 00:00:00 [facility] SARS-COV-2 COVID-19 2020-10-24 Completed [facility] PFIZER VACCINE 00:00:00 [facility] Influenza Virus 2020-07-08 Completed [facility] .5 mL 00:00:00 [facility] Influenza Virus 2020-07-08 Completed [facility] .5 mL 00:00:00 [facility] Influenza Virus 2020-07-08 Completed [facility] .5 mL 00:00:00 [facility] Influenza Virus 2020-07-08 Completed [facility] .5 mL 00:00:00 [facility] Influenza Virus [...] y of Vaccine [facility] .5 mL 00:00:00 [facility] Influenza Virus [...] y of Vaccine [facility] .5 mL 00:00:00 [facility] (FLUZONE/FLULAVAL/FL UARIX) Influenza Virus 2020-07-08 Completed [facility] .5 mL 00:00:00 [facility] (FLUZONE/FLULAVAL/FL UARIX) Influenza Virus 2020-07-08 Completed [facility] .5 mL 00:00:00 [facility] (FLUZONE/FLULAVAL/FL UARIX) Influenza Virus 2020-07-08 Completed [facility] .5 mL 00:00:00 [facility] (FLUZONE/FLULAVAL/FL UARIX) Influenza Virus 2020-07-08 Completed [facility] .5 mL 00:00:00 [facility] (FLUZONE/FLULAVAL/FL UARIX) Influenza Virus 2020-07-08 Completed [facility] .5 mL 00:00:00 [facility] (FLUZONE/FLULAVAL/FL UARIX) Influenza Virus 2020-07-08 Completed [facility] .5 mL 00:00:00 [facility] (FLUZONE/FLULAVAL/FL UARIX) Influenza Virus 2020-07-08 Completed [facility] .5 mL 00:00:00 [facility] 6+ MO [facility] (FLUZONE/FLULAVAL/FL UARIX) Influenza Virus 2020-07-08 Completed [facility] Vaccine Quad .5 mL 00:00:[address] [facility] 6+ MO [facility] (FLUZONE/FLULAVAL/FL UARIX) Meningococcal B, OMV 2018-10-31 Completed [facility] of 00:00:00 [facility] Meningococcal B, OMV 2018-10-31 Completed [facility] of 00:00:00 [facility] Meningococcal B, OMV 2018-10-31 Completed [facility] of 00:00:00 [facility] Meningococcal B, OMV 2018-10-31 Completed [facility] ersity [...] OMV 2018-10-31 Completed [facility] of 00:00:00 [facility] Influenza Virus 2018-08-29 Completed [facility] Vaccine [facility] .5 mL 00:00:00 [facility] 6+ MO [facility] Meningococcal B, OMV 2018-08-29 Completed [facility] of 00:00:00 [facility] Influenza Virus 2018-08-29 Completed [facility] .5 mL 00:00:00 [facility] Meningococcal B, OMV 2018-08-29 Completed [facility] of 00:00:00 [facility] Influenza Virus 2018-08-29 Completed [facility] Vaccine [facility] .5 mL 00:00:00 [facility] Meningococcal B, OMV 2018-08-29 Completed [facility] of 00:00:00 [facility] Influenza Virus 2018-08-29 Completed [facility] .5 mL 00:00:00 [facility] Meningococcal B, OMV 2018-08-29 Completed [facility] of 00:00:00 [facility] Influenza Virus 2018-08-29 Completed [facility] .5 mL 00:00:00 [facility] Meningococcal B, OMV 2018-08-29 Completed [facility] of 00:00:00 [facility] Influenza Virus 2018-08-29 Completed [facility] .5 mL 00:00:00 [facility] Meningococcal B, OMV 2018-08-29 Completed [facility] of 00:00:00 [facility] Influenza Virus 2018-08-29 Completed [facility] Vaccine [facility] .5 mL 00:00:00 [facility] Meningococcal B, OMV 2018-08-29 Completed [facility] of 00:00:00 [facility] Influenza Virus 2018-08-29 Completed [facility] .5 mL 00:00:00 [facility] Meningococcal B, OMV 2018-08-29 Completed [facility] of 00:00:00 [facility] Influenza Virus 2018-08-29 Completed [facility] .5 mL 00:00:00 [facility] Meningococcal B, OMV 2018-08-29 Completed [facility] 00:00:00 [facility] Influenza Virus 2018-08-29 Completed [facility] .5 mL 00:00:00 [facility] Meningococcal B, OMV 2018-08-29 Completed [facility] of 00:00:00 [facility] Influenza Virus 2018-08-29 Completed [facility] .5 mL 00:00:00 [facility] Meningococcal B, OMV 2018-08-29 Completed [facility] of 00:00:00 [facility] Influenza Virus 2018-08-29 Completed [facility] .5 mL 00:00:00 [facility] Meningococcal B, OMV 2018-08-29 Completed [facility] of 00:00:00 [facility] Influenza Virus 2018-08-29 Completed [facility] .5 mL 00:00:00 [facility] Meningococcal B, OMV 2018-08-29 Completed [facility] 00:00:00 [facility] Influenza Virus 2018-08-29 Completed [facility] .5 mL 00:00:00 [facility] Meningococcal B, OMV 2018-08-29 Completed [facility] 00:00:00 [facility] Influenza Virus 2018-08-29 Completed [facility] Vaccine [facility] .5 mL 00:00:00 [facility] Meningococcal B, OMV 2018-08-29 Completed [facility] 00:00:00 [facility] Influenza Virus 2018-08-29 Completed [facility] .5 mL 00:00:00 [facility] Meningococcal B, OMV 2018-08-29 Completed [facility] of 00:00:00 [facility] Influenza Virus 2018-08-29 Completed [facility] Vaccine [facility] .5 mL 00:00:00 [facility] Meningococcal B, OMV 2018-08-29 Completed [facility] of 00:00:00 [facility] Influenza Virus 2018-08-29 Completed [facility] Vaccine [facility] .5 mL 00:00:00 [facility] Meningococcal B, OMV 2018-08-29 Completed [facility] of 00:00:00 [facility] Influenza Virus 2018-08-29 Completed [facility] .5 mL 00:00:00 [facility] Meningococcal B, OMV 2018-08-29 Completed [facility] of 00:00:00 [facility] Influenza Virus 2018-08-29 Completed [facility] Vacc[facility] .5 mL 00:00:00 [facility] Meningococcal B, OMV 2018-08-29 Completed [facility] 00:00:00 [facility] Influenza Virus 2018-08-29 Completed [facility] Vacc[facility] .5 mL 00:00:00 [facility] Meningococcal B, OMV 2018-08-29 Completed [facility] 00:00:00 [facility] Influenza Virus 2018-08-29 Completed [facility] .5 mL 00:00:00 [facility] Meningococcal B, OMV 2018-08-29 Completed [facility] 00:00:00 [facility] Influenza Virus 2018-08-29 Completed [facility] Vaccine [facility] .5 mL 00:00:00 [facility] Meningococcal B, OMV 2018-08-29 Completed [facility] of 00:00:00 [facility] Influenza Virus 2018-08-29 Completed [facility] .5 mL 00:00:00 [facility] Meningococcal B, OMV 2018-08-29 Completed [facility] 00:00:00 [facility] Influenza Virus 2018-08-29 Completed [facility] .5 mL 00:00:00 [facility] Meningococcal B, OMV 2018-08-29 Completed [facility] 00:00:00 [facility] Influenza Virus 2018-08-29 Completed [facility] .5 mL 00:00:00 [facility] Meningococcal B, OMV 2018-08-29 Completed [facility] 00:00:00 [facility] Influenza Virus 2018-08-29 Completed [facility] .5 mL 00:00:00 [facility] Meningococcal B, OMV 2018-08-29 Completed [facility] 00:00:00 [facility] Influenza Virus 2018-08-29 Completed [facility] .5 mL 00:00:00 [facility] Meningococcal B, OMV 2018-08-29 Completed [facility] 00:00:00 [facility] Influenza Virus 2018-08-29 Completed [facility] .5 mL 00:00:00 [facility] Meningococcal B, OMV 2018-08-29 Completed [facility] 00:00:00 [facility] Influenza Virus 2018-08-29 Completed [facility] .5 mL 00:00:00 [facility] Meningococcal B, OMV 2018-08-29 Completed [facility] 00:00:00 [facility] Influenza Virus 2018-08-29 Completed [facility] .5 mL 00:00:00 [facility] Meningococcal B, OMV 2018-08-29 Completed [facility] 00:00:00 [facility] Influenza Virus 2018-08-29 Completed [facility] .5 mL 00:00:00 [facility] Meningococcal B, OMV 2018-08-29 Completed [facility] 00:00:00 [facility] Influenza Virus 2018-08-29 Completed [facility] .5 mL 00:00:00 [facility] Meningococcal B, OMV 2018-08-29 Completed [facility] 00:00:00 [facility] Influenza Virus 2018-08-29 Completed [facility] Vaccine Quad .5 mL 00:00:00 [facility] 6[facility] MO [facility] Meningococcal B, OMV 2018-08-29 Completed [facility] 00:00:00 [facility] Influenza Virus 2018-08-29 Completed [facility] Vaccine Quad .5 mL 00:00:00 [facility] 6[facility] MO [facility] Meningococcal B, OMV 2018-08-29 Completed [facility] 00:00:00 [facility] Influenza Virus 2018-08-29 Completed [facility] Vaccine Quad .5 mL 00:00:00 [facility] 6+ MO [facility] Meningococcal B, OMV 2018-08-29 Completed [facility] 00:00:00 [facility] Influenza Virus 2018-08-29 Completed [facility] Vaccine Quad .5 mL 00:00:00 [facility] 6+ MO [facility] Meningococcal B, OMV 2018-08-29 Completed [facility] 00:00:00 [facility] Influenza Virus 2018-08-29 Completed [facility] Vaccine Quad .5 mL 00:00:00 [facility] 6[facility] MO [facility] Meningococcal B, OMV 2018-08-29 Completed [facility] 00:00:00 [facility] Influenza Virus 2018-08-29 Completed [facility] Vaccine Quad .5 mL 00:00:00 [facility] 6[facility] MO [facility] Meningococcal B, OMV 2018-08-29 Completed [facility] 00:00:00 [facility] Influenza Virus 2018-08-29 Completed [facility] Vaccine Quad .5 mL 00:00:00 [facility] 6[facility] MO [facility] Meningococcal B, OMV 2018-08-29 Completed [facility] 00:00:00 [facility] Influenza Virus 2018-08-29 Completed [facility] Vaccine Quad .5 mL 00:00:00 [facility] 6[facility] MO [facility] Meningococcal B, OMV 2018-08-29 Completed [facility] 00:00:00 [facility] Influenza Virus 2018-08-29 Completed [facility] Vaccine Quad .5 mL 00:00:00 [facility] 6[facility] MO [facility] Meningococcal B, OMV 2018-08-29 Completed [facility] 00:00:00 [facility] Influenza Virus 2018-08-29 Completed [facility] Vaccine Quad .5 mL 00:00:00 [facility] 6[facility] MO [facility] Meningococcal B, OMV 2018-08-29 Completed [facility] 00:00:00 [facility] Influenza Virus 2018-08-29 Completed [facility] Vaccine Quad .5 mL 00:00:00 [facility] 6[facility] MO [facility] Meningococcal B, OMV 2018-08-29 Completed [facility] 00:00:00 [facility] Influenza Virus 2018-08-29 Completed [facility] Vaccine Quad .5 mL 00:00:00 [facility] 6[facility] MO [facility] Meningococcal B, OMV 2018-08-29 Completed [facility] 00:00:00 [facility] Influenza Virus 2018-08-29 Completed [facility] Vaccine Quad .5 mL 00:00:00 [facility] 6[facility] MO [facility] Meningococcal B, OMV 2018-08-29 Completed [facility] 00:00:00 [facility] Influenza Virus 2018-08-29 Completed [facility] Vaccine Quad .5 mL 00:00:00 [facility] 6[facility] MO [facility] Meningococcal B, OMV 2018-08-29 Completed [facility] 00:00:00 [facility] Influenza Virus 2018-08-29 Completed [facility] Vaccine Quad .5 mL 00:00:00 [facility] 6[facility] MO [facility] Meningococcal B, OMV 2018-08-29 Completed [facility] 00:00:00 [facility] Influenza Virus 2018-08-29 Completed [facility] Vaccine Quad .5 mL 00:00:00 [facility] 6[facility] MO [facility] Meningococcal B, OMV 2018-08-29 Completed [facility] 00:00:00 [facility] Influenza Virus 2018-08-29 Completed [facility] Vaccine Quad .5 mL 00:00:00 [facility] 6[facility] MO [facility] Meningococcal B, OMV 2018-08-29 Completed [facility] 00:00:00 [facility] Influenza Virus 2018-08-29 Completed [facility] Vaccine Quad .5 mL 00:00:00 [facility] 6[facility] MO [facility] Meningococcal B, OMV 2018-08-29 Completed [facility] 00:00:00 [facility] Influenza Virus 2018-08-29 Completed [facility] Vaccine Quad .5 mL 00:00:00 [facility] 6[facility] MO [facility] Meningococcal B, OMV 2018-08-29 Completed [facility] 00:00:00 [facility] Influenza Virus 2018-08-29 Completed [facility] Vaccine Quad .5 mL 00:00:00 [facility] 6[facility] MO [facility] Meningococcal B, OMV 2018-08-29 Completed [facility] 00:00:00 [facility] Influenza Virus 2018-08-29 Completed [facility] Vaccine Quad .5 mL 00:00:00 [facility] 6[facility] MO [facility] Meningococcal B, OMV 2018-08-29 Completed [facility] 00:00:00 [facility] Influenza Virus 2018-08-29 Completed [facility] Vaccine Quad .5 mL 00:00:00 [facility] 6[facility] MO [facility] Meningococcal B, OMV 2018-08-29 Completed [facility] 00:00:00 [facility] Influenza Virus 2018-08-29 Completed [facility] Vaccine Quad .5 mL 00:00:00 [facility] 6[facility] MO [facility] Meningococcal B, OMV 2018-08-29 Completed [facility] 00:00:00 [facility] Influenza Virus 2018-08-29 Completed [facility] Vaccine Quad .5 mL 00:00:00 [facility] 6[facility] MO [facility] Meningococcal B, OMV 2018-08-29 Completed [facility] 00:00:00 [facility] Influenza Virus 2018-08-29 Completed [facility] Vaccine Quad .5 mL 00:00:00 [facility] 6[facility] MO [facility] Meningococcal B, OMV 2018-08-29 Completed [facility] 00:00:00 [facility] Influenza Virus 2018-08-29 Completed [facility] Vaccine Quad .5 mL 00:00:00 [facility] 6[facility] MO [facility] Meningococcal B, OMV 2018-08-29 Completed [facility] 00:00:00 [facility] Influenza Virus 2018-08-29 Completed [facility] Vaccine Quad .5 mL 00:00:00 [facility] 6[facility] MO [facility] Meningococcal B, OMV 2018-08-29 Completed [facility] 00:00:00 [facility] Influenza Virus 2018-08-29 Completed [facility] Vaccine Quad .5 mL 00:00:00 [facility] 6[facility] MO [facility] Meningococcal B, OMV 2018-08-29 Completed [facility] 00:00:00 [facility] Influenza Virus 2018-08-29 Completed [facility] Vaccine Quad .5 mL 00:00:00 [facility] 6[facility] MO [facility] Meningococcal B, OMV 2018-08-29 Completed [facility] 00:00:00 [facility] Influenza Virus 2018-08-29 Completed [facility] Vaccine Quad .5 mL 00:00:00 [facility] 6[facility] MO [facility] Meningococcal B, OMV 2018-08-29 Completed [facility] 00:00:00 [facility] Influenza Virus 2018-08-29 Completed [facility] Vaccine Quad .5 mL 00:00:00 [facility] 6[facility] MO [facility] Meningococcal B, OMV 2018-08-29 Completed [facility] 00:00:00 [facility] Influenza Virus 2018-08-29 Completed [facility] Vaccine Quad .5 mL 00:00:00 [facility] 6[facility] MO [facility] Meningococcal B, OMV 2018-08-29 Completed [facility] 00:00:00 [facility] Influenza Virus 2018-08-29 Completed [facility] Vaccine Quad .5 mL 00:00:00 [facility] 6[facility] MO [facility] Meningococcal B, OMV 2018-08-29 Completed [facility] 00:00:00 [facility] Influenza Virus 2018-08-29 Completed [facility] Vaccine Quad .5 mL 00:00:00 [facility] 6[facility] MO [facility] Meningococcal B, OMV 2018-08-29 Completed [facility] 00:00:00 [facility] Influenza Virus 2018-08-29 Completed [facility] Vaccine Quad .5 mL 00:00:00 [facility] 6[facility] MO [facility] Meningococcal B, OMV 2018-08-29 Completed [facility] 00:00:00 [facility] Influenza Virus 2018-08-29 Completed [facility] Vaccine Quad .5 mL 00:00:00 [facility] 6[facility] MO [facility] Meningococcal B, OMV 2018-08-29 Completed [facility] 00:00:00 [facility] Influenza Virus 2018-08-29 Completed [facility] Vaccine Quad .5 mL 00:00:00 [facility] 6[facility] MO [facility] Meningococcal B, OMV 2018-08-29 Completed [facility] 00:00:00 [facility] Influenza Virus 2018-08-29 Completed [facility] Vaccine Quad .5 mL 00:00:00 [facility] 6[facility] MO [facility] Meningococcal B, OMV 2018-08-29 Completed [facility] 00:00:00 [facility] Influenza Virus 2018-08-29 Completed [facility] Vaccine Quad .5 mL 00:00:00 [facility] 6[facility] MO [facility] Meningococcal B, OMV 2018-08-29 Completed [facility] 00:00:00 [facility] Influenza Virus 2018-08-29 Completed [facility] Vaccine Quad .5 mL 00:00:00 [facility] 6[facility] MO [facility] Meningococcal B, OMV 2018-08-29 Completed [facility] 00:00:00 [facility] Influenza Virus 2018-08-29 Completed [facility] Vaccine Quad .5 mL 00:00:00 [facility] 6[facility] MO [facility] Meningococcal B, OMV 2018-08-29 Completed [facility] 00:00:00 [facility] Influenza Virus 2018-08-29 Completed [facility] Vaccine Quad .5 mL 00:00:00 [facility] 6[facility] MO [facility] Meningococcal B, OMV 2018-08-29 Completed [facility] 00:00:00 [facility] Influenza Virus 2018-08-29 Completed [facility] Vaccine Quad .5 mL 00:00:00 [facility] 6[facility] MO [facility] Meningococcal B, OMV 2018-08-29 Completed [facility] 00:00:00 [facility] Influenza Virus 2018-08-29 Completed [facility] Vaccine Quad .5 mL 00:00:00 [facility] 6+ MO [facility] Meningococcal B, OMV 2018-08-29 Completed [facility] 00:00:00 [facility] Influenza Virus 2018-08-29 Completed [facility] Vaccine Quad .5 mL 00:00:00 [facility] 6[facility] MO [facility] Meningococcal B, OMV 2018-08-29 Completed [facility] 00:00:00 [facility] Influenza Virus 2018-08-29 Completed [facility] Vaccine Quad .5 mL 00:00:00 [facility] 6+ MO [facility] Meningococcal B, OMV 2018-08-29 Completed [facility] 00:00:00 [facility] Influenza Virus 2018-08-29 Completed [facility] Vaccine Quad .5 mL 00:00:00 [facility] 6[facility] MO [facility] Meningococcal B, OMV 2018-08-29 Completed [facility] 00:00:00 [facility] Influenza Virus 2018-08-29 Completed [facility] Vaccine Quad .5 mL 00:00:00 [facility] 6[facility] MO [facility] Meningococcal B, OMV 2018-08-29 Completed [facility] 00:00:00 [facility] Influenza Virus 2018-08-29 Completed [facility] Vaccine Quad .5 mL 00:00:00 [facility] 6+ MO [facility] Meningococcal B, OMV 2018-08-29 Completed [facility] 00:00:00 [facility] Influenza Virus 2018-08-29 Completed [facility] Vaccine Quad .5 mL 00:00:00 [facility] 6+ MO [facility] Meningococcal B, OMV 2018-08-29 Completed [facility] 00:00:00 [facility] Influenza Virus 2018-08-29 Completed [facility] Vaccine Quad .5 mL 00:00:00 [facility] 6[facility] MO [facility] Meningococcal B, OMV 2018-08-29 Completed [facility] 00:00:00 [facility] Influenza Virus 2018-08-29 Completed [facility] Vaccine Quad .5 mL 00:00:00 [facility] 6+ MO [facility] Meningococcal B, OMV 2018-08-29 Completed [facility] 00:00:00 [facility] Influenza Virus 2018-08-29 Completed [facility] Vaccine Quad .5 mL 00:00:00 [facility] 6+ MO [facility] Meningococcal B, OMV 2018-08-29 Completed [facility] 00:00:00 [facility] Influenza Virus 2018-08-29 Completed [facility] Vaccine Quad .5 mL 00:00:00 [facility] 6+ MO [facility] Meningococcal B, OMV 2018-08-29 Completed [facility] 00:00:00 [facility] Influenza Virus 2018-08-29 Completed [facility] Vaccine Quad .5 mL 00:00:00 [facility] 6+ MO [facility] Meningococcal B, OMV 2018-08-29 Completed [facility] 00:00:00 [facility] Influenza Virus 2018-08-29 Completed [facility] Vaccine Quad .5 mL 00:00:00 [facility] 6+ MO [facility] Meningococcal B, OMV 2018-08-29 Completed [facility] 00:00:00 [facility] Influenza Virus 2018-08-29 Completed [facility] Vaccine Quad .5 mL 00:00:00 [facility] 6+ MO [facility] Meningococcal B, OMV 2018-08-29 Completed [facility] 00:00:00 [facility] Influenza Virus 2018-08-29 Completed [facility] Vaccine Quad .5 mL 00:00:00 [facility] 6+ MO [facility] Meningococcal B, OMV 2018-08-29 Completed [facility] 00:00:00 [facility] Influenza Virus 2018-08-29 Completed [facility] Vaccine Quad .5 mL 00:00:00 [facility] 6+ MO [facility] Meningococcal B, OMV 2018-08-29 Completed [facility] 00:00:00 [facility] Influenza Virus 2018-08-29 Completed [facility] Vaccine Quad .5 mL 00:00:00 [facility] 6[facility] MO [facility] Meningococcal B, OMV 2018-08-29 Completed [facility] 00:00:00 [facility] Influenza Virus 2018-08-29 Completed [facility] Vaccine Quad .5 mL 00:00:00 [facility] 6+ MO [facility] Meningococcal B, OMV 2018-08-29 Completed [facility] 00:00:00 [facility] Influenza Virus 2018-08-29 Completed [facility] Vaccine Quad .5 mL 00:00:00 [facility] 6+ MO [facility] Meningococcal B, OMV 2018-08-29 Completed [facility] 00:00:00 [facility] Influenza Virus 2018-08-29 Completed [facility] Vaccine Quad .5 mL 00:00:00 [facility] 6+ MO [facility] Meningococcal B, OMV 2018-08-29 Completed [facility] 00:00:00 [facility] Influenza Virus 2018-08-29 Completed [facility] Vaccine Quad .5 mL 00:00:00 [facility] 6+ MO [facility] (FLUZONE/FLULAVAL/FL UARIX) Meningococcal B, OMV 2018-08-29 Completed [facility] 00:00:00 [facility] Influenza Virus 2018-08-29 Completed [facility] Vaccine Quad .5 mL 00:00:00 [facility] 6+ MO [facility] (FLUZONE/FLULAVAL/FL UARIX) Meningococcal B, OMV 2018-08-29 Completed [facility] 00:00:00 [facility] Influenza Virus 2018-08-29 Completed [facility] Vaccine Quad .5 mL 00:00:[address] [facility] 6+ MO Branch (FLUZONE/FLULAVAL/FL UARIX) Meningococcal B, OMV 2018-08-29 Completed [facility] 00:00:00 [facility] Influenza Virus 2018-08-29 Completed [facility] Vaccine Quad .5 mL 00:00:[address] [facility] 6+ MO Branch (FLUZONE/FLULAVAL/FL UARIX) Meningococcal B, OMV 2018-08-29 Completed [facility] 00:00:00 [facility] Influenza Virus 2018-08-29 Completed [facility] Vaccine Quad .5 mL 00:00:[address] [facility] 6+ MO Branch (FLUZONE/FLULAVAL/FL UARIX) Meningococcal B, OMV 2018-08-29 Completed [facility] 00:00:00 [facility] Influenza Virus 2018-08-29 Completed [facility] Vaccine Quad .5 mL 00:00:[address] [facility] 6+ MO Branch (FLUZONE/FLULAVAL/FL UARIX) Meningococcal B, OMV 2018-08-29 Completed [facility] 00:00:00 [facility] Influenza Virus 2018-08-29 Completed [facility] Vaccine Quad .5 mL 00:00:[address] [facility] 6+ MO Branch (FLUZONE/FLULAVAL/FL UARIX) Meningococcal B, OMV 2018-08-29 Completed [facility] 00:00:00 [facility] Influenza Virus 2018-08-29 Completed [facility] Vaccine Quad .5 mL 00:00:00 [facility] IM 6+ MO Branch (FLUZONE/FLULAVAL/FL UARIX) Meningococcal B, OMV 2018-08-29 Completed [facility] 00:00:00 [facility] Influenza Virus 2018-08-29 Completed [facility] Vaccine Quad .5 mL 00:00:00 [facility] IM 6+ MO Branch (FLUZONE/FLULAVAL/FL UARIX) Meningococcal B, OMV 2018-08-29 Completed [facility] 00:00:00 [facility] Meningococcal 2018-01-17 Completed [facility] Polysaccharide 00:00:00 [facility] (groups A, C, Y and Branc h W-135) conjugate vaccine (MCV4P) Meningococcal 2018-01-17 Completed [facility] Polysaccharide 00:00:00 [facility] (groups A, C, Y and Branc h W-135) conjugate vaccine (MCV4P) Meningococcal 2018-01-17 Completed [facility] Polysaccharide 00:00:00 [facility] (groups A, C, Y and Branc h W-135) conjugate vaccine (MCV4P) Meningococcal 2018-01-17 Completed [facility] Polysaccharide 00:00:00 [facility] (groups A, C, Y and Branc h W-135) conjugate vaccine (MCV4P) Meningococcal 2018-01-17 Completed [facility] Polysaccharide 00:00:00 [facility] (groups A, C, Y and [...] Vaccine Quad IM 3+ 00:00:00 [facility] Influenza Virus 2017-04-12 Completed [facility] Vaccine Quad IM 3+ 00:00:00 [facility] Influenza Virus 2017-04-12 Completed [facility] of Vaccine Quad IM 3+ 00:00:00 [facility] Influenza Virus 2017-04-12 Completed [facility] of Vaccine Quad IM 3+ 00:00:00 [facility] Influenza Virus 2017-04-12 Completed [facility] of Vaccine Quad IM 3+ 00:00:00 [facility] Influenza Virus 2017-04-12 Completed [facility] of Vaccine Quad IM 3+ 00:00:00 [facility] Influenza Virus 2017-04-12 Completed [facility] of Vaccine Quad IM 3+ 00:00:00 [facility] Influenza Virus 2017-04-12 Completed [facility] Vaccine Quad IM 3+ 00:00:00 [facility] Influenza Virus 2017-04-12 Completed [facility] of Vaccine Quad IM 3+ 00:00:00 [facility] Influenza Virus 2017-04-12 Completed [facility] of Vaccine Quad IM 3+ 00:00:00 [facility] Influenza Virus 2017-04-12 Completed [facility] of Vaccine Quad IM 3+ 00:00:00 [facility] Influenza Virus 2017-04-12 Completed [facility] of Vaccine Quad IM 3+ 00:00:00 [facility] Influenza Virus 2017-04-12 Completed [facility] of Vaccine Quad IM 3+ 00:00:00 [facility] Influenza Virus 2017-04-12 Completed [facility] of Vaccine Quad IM 3+ 00:00:00 [facility] Influenza Virus 2017-04-12 Completed [facility] of Vaccine Quad IM 3+ 00:00:00 [facility] Influenza Virus 2017-04-12 Completed [facility] of Vaccine Quad IM 3+ 00:00:00 [facility] Influenza Virus 2017-04-12 Completed [facility] of Vaccine Quad IM 3+ 00:00:00 [facility] Influenza Virus 2017-04-12 Completed [facility] of Vaccine Quad IM 3+ 00:00:00 [facility] Influenza Virus 2017-04-12 Completed [facility] of Vaccine Quad IM 3+ 00:00:00 [facility] Influenza Virus 2017-04-12 Completed [facility] Vaccine Quad IM 3+ 00:00:00 [facility] Influenza Virus 2017-04-12 Completed [facility] of Vaccine Quad IM 3+ 00:00:00 [facility] Influenza Virus 2017-04-12 Completed [facility] of Vaccine Quad IM 3+ 00:00:00 [facility] Influenza Virus 2017-04-12 Completed [facility] of Vaccine Quad IM 3+ 00:00:00 [facility] Influenza Virus 2017-04-12 Completed [facility] of Vaccine Quad IM 3+ 00:00:00 [facility] Influenza Virus 2017-04-12 Completed [facility] of Vaccine Quad IM 3+ 00:00:00 [facility] Influenza Virus 2017-04-12 Completed [facility] of Vaccine Quad IM 3+ 00:00:00 [facility] Influenza Virus 2017-04-12 Completed [facility] of Vaccine Quad IM 3+ 00:00:00 [facility] Influenza Virus 2017-04-12 Completed [facility] of Vaccine Quad IM 3+ 00:00:00 [facility] Influenza Virus 2017-04-12 Completed [facility] of Vaccine Quad IM 3+ 00:00:00 [facility] Influenza Virus 2017-04-12 Completed [facility] of Vaccine Quad IM 3+ 00:00:00 [facility] Influenza Virus 2017-04-12 Completed [facility] of Vaccine Quad IM 3+ 00:00:00 [facility] Influenza Virus 2017-04-12 Completed [facility] of Vaccine Quad IM 3+ 00:00:00 [facility] Influenza Virus 2017-04-12 Completed [facility] of Vaccine Quad IM 3+ 00:00:00 [facility] Influenza Virus 2017-04-12 Completed [facility] of Vaccine Quad IM 3+ 00:00:00 [facility] Influenza Virus 2017-04-12 Completed [facility] of Vaccine Quad IM 3+ 00:00:00 [facility] Influenza Virus 2017-04-12 Completed [facility] of Vaccine Quad IM 3+ 00:00:00 [facility] Influenza Virus 2017-04-12 Completed [facility] of Vaccine Quad IM 3+ 00:00:00 [facility] Influenza Virus 2017-04-12 Completed [facility] of Vaccine Quad IM 3+ 00:00:00 [facility] Influenza Virus 2017-04-12 Completed [facility] of Vaccine Quad IM 3+ 00:00:00 [facility] Influenza Virus 2017-04-12 Completed [facility] of Vaccine Quad IM 3+ 00:00:00 [facility] Influenza Virus 2017-04-12 Completed [facility] of Vaccine Quad IM 3+ 00:00:00 [facility] Influenza Virus 2017-04-12 Completed [facility] of Vaccine Quad IM 3+ 00:00:00 [facility] Influenza Virus 2017-04-12 Completed [facility] of Vaccine Quad IM 3+ 00:00:00 [facility] Influenza Virus 2017-04-12 Completed [facility] of Vaccine Quad IM 3+ 00:00:00 [facility] Influenza Virus 2017-04-12 Completed [facility] of Vaccine Quad IM 3+ 00:00:00 [facility] Influenza Virus 2017-04-12 Completed [facility] of Vaccine Quad IM 3+ 00:00:00 [facility] Influenza Virus 2017-04-12 Completed [facility] of Vaccine Quad IM 3+ 00:00:00 [facility] Influenza Virus 2017-04-12 Completed [facility] of Vaccine Quad IM 3+ 00:00:00 [facility] Influenza Virus 2017-04-12 Completed [facility] of Vaccine Quad IM 3+ 00:00:00 [facility] Influenza Virus 2017-04-12 Completed [facility] of Vaccine Quad IM 3+ 00:00:00 [facility] Influenza Virus 2017-04-12 Completed [facility] of Vaccine Quad IM 3+ 00:00:00 [facility] Influenza Virus 2017-04-12 Completed [facility] of Vaccine Quad IM 3+ 00:00:00 [facility] Influenza Virus 2017-04-12 Completed [facility] of Vaccine Quad IM 3+ 00:00:00 [facility] Influenza Virus 2017-04-12 Completed [facility] of Vaccine Quad IM 3+ 00:00:00 [facility] Influenza Virus 2017-04-12 Completed [facility] of Vaccine Quad IM 3+ 00:00:00 [facility] Influenza Virus 2017-04-12 Completed [facility] of Vaccine Quad IM 3+ 00:00:00 [facility] Influenza Virus 2017-04-12 Completed [facility] of Vaccine Quad IM 3+ 00:00:00 [facility] Influenza Virus 2017-04-12 Completed [facility] of Vaccine Quad IM 3+ 00:00:00 [facility] Influenza Virus 2017-04-12 Completed [facility] of Vaccine Quad IM 3+ 00:00:00 [facility] Influenza Virus 2017-04-12 Completed [facility] 3+ 00:00:00 [facility] Influenza Virus 2017-04-12 Completed [facility] 3+ 00:00:00 [facility] Influenza Virus 2017-04-12 Completed [facility] IM 3+ 00:00:00 [facility] Influenza Virus 2017-04-12 Completed [facility] 3+ 00:00:00 [facility] Influenza Virus 2017-04-12 Completed [facility] 3+ 00:00:00 [facility] Influenza Virus 2017-04-12 Completed [facility] 3+ 00:00:00 [facility] Influenza Virus 2017-04-12 Completed [facility] 3+ 00:00:00 [facility] Influenza Virus 2017-04-12 Completed [facility] IM 3+ 00:00:00 [facility] Influenza Virus 2017-04-12 Completed [facility] 3+ 00:00:00 [facility] Influenza Virus 2017-04-12 Completed [facility] 3+ 00:00:00 [facility] Influenza Virus 2017-04-12 Completed [facility] 3+ 00:00:00 [facility] Influenza Virus 2017-04-12 Completed [facility] IM 3+ 00:00:00 [facility] Influenza Virus 2017-04-12 Completed [facility] 3+ 00:00:00 [facility] Influenza Virus 2017-04-12 Completed [facility] IM 3+ 00:00:00 [facility] Influenza Virus 2017-04-12 Completed [facility] 3+ 00:00:00 [facility] Influenza Virus 2017-04-12 Completed [facility] 3+ 00:00:00 [facility] Influenza Virus 2017-04-12 Completed [facility] IM 3+ 00:00:00 [facility] Influenza Virus 2017-04-12 Completed [facility] IM 3+ 00:00:00 [facility] Influenza Virus 2017-04-12 Completed [facility] 3+ 00:00:00 [facility] Influenza Virus 2017-04-12 Completed [facility] 3+ 00:00:00 [facility] Influenza Virus 2017-04-12 Completed [facility] 3+ 00:00:00 [facility] Influenza Virus 2017-04-12 Completed [facility] 3+ 00:00:00 [facility] Influenza Virus 2017-04-12 Completed [facility] 3+ 00:00:00 [facility] Influenza Virus 2017-04-12 Completed [facility] 3+ 00:00:00 [facility] Influenza Virus 2017-04-12 Completed [facility] 3+ 00:00:00 [facility] Influenza Virus 2017-04-12 Completed [facility] IM 3+ 00:00:00 [facility] Influenza Virus 2017-04-12 Completed [facility] 3+ 00:00:00 [facility] Influenza Virus 2017-04-12 Completed [facility] 3+ 00:00:00 [facility] Influenza Virus 2017-04-12 Completed [facility] 3+ 00:00:00 [facility] Influenza Virus 2017-04-12 Completed [facility] 3+ 00:00:00 [facility] Influenza Virus 2017-04-12 Completed [facility] 3+ 00:00:00 [facility] Influenza Virus 2017-04-12 Completed [facility] IM 3+ 00:00:00 [facility] Influenza Virus 2017-04-12 Completed [facility] 3+ 00:00:00 [facility] Influenza Virus 2017-04-12 Completed [facility] 3+ 00:00:00 [facility] Influenza Virus 2017-04-12 Completed [facility] 3+ 00:00:00 [facility] Influenza Virus 2017-04-12 Completed [facility] IM 3+ 00:00:00 [facility] Influenza Virus 2017-04-12 Completed [facility] IM 3+ 00:00:00 [facility] Influenza Virus 2017-04-12 Completed [facility] IM 3+ 00:00:00 [facility] Influenza Virus 2017-04-12 Completed [facility] IM 3+ 00:00:00 [facility] Influenza Virus 2017-04-12 Completed [facility] IM 3+ 00:00:00 [facility] Influenza Virus 2017-04-12 Completed [facility] 3+ 00:00:00 [facility] Influenza Virus 2017-04-12 Completed [facility] IM 3+ 00:00:00 [facility] Influenza Virus 2017-04-12 Completed [facility] IM 3+ 00:00:00 [facility] Influenza Virus 2017-04-12 Completed [facility] 3+ 00:00:00 [facility] Influenza Virus 2017-04-12 Completed [facility] 3+ 00:00:00 [facility] Influenza Virus 2017-04-12 Completed [facility] 3+ 00:00:00 [facility] HPV9 2017-02-01 Completed [facility] 00:00:00 [facility] HPV9 2017-02-01 Completed [facility] 00:00:00 [facility] HPV9 2017-02-01 Completed [facility] 00:00:00 [facility] HPV9 2017-02-01 Completed [facility] 00:00:00 [facility] HPV9 2017-02-01 Completed [facility] 00:00:00 [facility] HPV9 2017-02-01 Completed [facility] 00:00:00 [facility] HPV9 2017-02-01 Completed [facility] 00:00:00 [facility] HPV9 2017-02-01 Completed [facility] 00:00:00 [facility] HPV9 2017-02-01 Completed [facility] 00:00:00 [facility] HPV9 2017-02-01 Completed [facility] 00:00:00 [facility] HPV9 2017-02-01 Completed [facility] 00:00:00 [facility] HPV9 2017-02-01 Completed [facility] 00:00:00 [facility] HPV9 2017-02-01 Completed [facility] 00:00:00 [facility] HPV9 2017-02-01 Completed [facility] 00:00:00 [facility] HPV9 2017-02-01 Completed [facility] 00:00:00 [facility] HPV9 2017-02-01 Completed [facility] 00:00:00 [facility] HPV9 2017-02-01 Completed [facility] 00:00:00 [facility] HPV9 2017-02-01 Completed [facility] 00:00:00 [facility] HPV9 2017-02-01 Completed [facility] 00:00:00 [facility] HPV9 2017-02-01 Completed [facility] 00:00:00 [facility] HPV9 2017-02-01 Completed [facility] 00:00:00 [facility] HPV9 2017-02-01 Completed [facility] 00:00:00 [facility] HPV9 2017-02-01 Completed [facility] 00:00:00 [facility] HPV9 2017-02-01 Completed [facility] 00:00:00 [facility] HPV9 2017-02-01 Completed [facility] 00:00:00 [facility] HPV9 2017-02-01 Completed [facility] 00:00:00 [facility] HPV9 2017-02-01 Completed [facility] 00:00:00 [facility] HPV9 2017-02-01 Completed [facility] 00:00:00 [facility] HPV9 2017-02-01 Completed [facility] 00:00:00 [facility] HPV9 2017-02-01 Completed [facility] 00:00:00 [facility] HPV9 2017-02-01 Completed [facility] 00:00:00 [facility] HPV9 2017-02-01 Completed [facility] 00:00:00 [facility] HPV9 2017-02-01 Completed [facility] 00:00:00 [facility] HPV9 2017-02-01 Completed [facility] 00:00:00 [facility] HPV9 2017-02-01 Completed [facility] 00:00:00 [facility] HPV9 2017-02-01 Completed [facility] 00:00:00 [facility] HPV9 2017-02-01 Completed [facility] 00:00:00 [facility] HPV9 2017-02-01 Completed [facility] 00:00:00 [facility] HPV9 2017-02-01 Completed [facility] 00:00:00 [facility] HPV9 2017-02-01 Completed [facility] 00:00:00 [facility] HPV9 2017-02-01 Completed [facility] 00:00:00 [facility] HPV9 2017-02-01 Completed [facility] 00:00:00 [facility] HPV9 2017-02-01 Completed [facility] 00:00:00 [facility] HPV9 2017-02-01 Completed [facility] 00:00:00 [facility] HPV9 2017-02-01 Completed [facility] 00:00:00 [facility] HPV9 2017-02-01 Completed [facility] 00:00:00 [facility] HPV9 2017-02-01 Completed [facility] 00:00:00 [facility] HPV9 2017-02-01 Completed [facility] 00:00:00 [facility] HPV9 2017-02-01 Completed [facility] 00:00:00 [facility] HPV9 2017-02-01 Completed [facility] 00:00:00 [facility] HPV9 2017-02-01 Completed [facility] 00:00:00 [facility] HPV9 2017-02-01 Completed [facility] 00:00:00 [facility] HPV9 2017-02-01 Completed [facility] 00:00:00 [facility] HPV9 2017-02-01 Completed [facility] 00:00:00 [facility] HPV9 2017-02-01 Completed [facility] 00:00:00 [facility] HPV9 2017-02-01 Completed [facility] 00:00:00 [facility] HPV9 2017-02-01 Completed [facility] 00:00:00 [facility] HPV9 2017-02-01 Completed [facility] 00:00:00 [facility] HPV9 2017-02-01 Completed [facility] 00:00:00 [facility] HPV9 2017-02-01 Completed [facility] 00:00:00 [facility] HPV9 2017-02-01 Completed [facility] 00:00:00 [facility] HPV9 2017-02-01 Completed [facility] 00:00:00 [facility] HPV9 2017-02-01 Completed [facility] 00:00:00 [facility] HPV9 2017-02-01 Completed [facility] 00:00:00 [facility] HPV9 2017-02-01 Completed [facility] 00:00:00 [facility] HPV9 2017-02-01 Completed [facility] 00:00:00 [facility] HPV9 2017-02-01 Completed [facility] 00:00:00 [facility] HPV9 2017-02-01 Completed [facility] 00:00:00 [facility] HPV9 2017-02-01 Completed [facility] 00:00:00 [facility] HPV9 2017-02-01 Completed [facility] 00:00:00 [facility] HPV9 2017-02-01 Completed [facility] 00:00:00 [facility] HPV9 2017-02-01 Completed [facility] 00:00:00 [facility] HPV9 2017-02-01 Completed [facility] 00:00:00 [facility] HPV9 2017-02-01 Completed [facility] 00:00:00 [facility] HPV9 2017-02-01 Completed [facility] 00:00:00 [facility] HPV9 2017-02-01 Completed [facility] 00:00:00 [facility] HPV9 2017-02-01 Completed [facility] 00:00:00 [facility] HPV9 2017-02-01 Completed [facility] 00:00:00 [facility] HPV9 2017-02-01 Completed [facility] 00:00:00 [facility] HPV9 2017-02-01 Completed [facility] 00:00:00 [facility] HPV9 2017-02-01 Completed [facility] 00:00:00 [facility] HPV9 2017-02-01 Completed [facility] 00:00:00 [facility] HPV9 2017-02-01 Completed [facility] 00:00:00 [facility] HPV9 2017-02-01 Completed [facility] 00:00:00 [facility] HPV9 2017-02-01 Completed [facility] 00:00:00 [facility] HPV9 2017-02-01 Completed [facility] 00:00:00 [facility] HPV9 2017-02-01 Completed [facility] 00:00:00 [facility] HPV9 2017-02-01 Completed [facility] 00:00:00 [facility] HPV9 2017-02-01 Completed [facility] 00:00:00 [facility] HPV9 2017-02-01 Completed [facility] 00:00:00 [facility] HPV9 2017-02-01 Completed [facility] 00:00:00 [facility] HPV9 2017-02-01 Completed [facility] 00:00:00 [facility] HPV9 2017-02-01 Completed [facility] [...] Branch HPV 2016-01-20 Completed [facility] 00:00:00 [facility] HPV 2016-01-20 Completed [facility] 00:00:00 [facility] HPV 2016-01-20 Completed [facility] 00:00:00 [facility] HPV 2016-01-20 Completed [facility] 00:00:00 [facility] HPV 2016-01-20 Completed [facility] 00:00:00 [facility] HPV 2016-01-20 Completed [facility] 00:00:00 [facility] HPV 2016-01-20 Completed [facility] 00:00:00 [facility] HPV 2016-01-20 Completed [facility] 00:00:00 [facility] HPV 2016-01-20 Completed [facility] 00:00:00 [facility] HPV 2016-01-20 Completed [facility] 00:00:00 [facility] HPV 2016-01-20 Completed [facility] 00:00:00 [facility] HPV 2016-01-20 Completed [facility] 00:00:00 [facility] HPV 2016-01-20 Completed [facility] 00:00:00 [facility] HPV 2016-01-20 Completed [facility] 00:00:00 [facility] HPV 2016-01-20 Completed [facility] 00:00:00 [facility] HPV 2016-01-20 Completed [facility] 00:00:00 [facility] HPV 2016-01-20 Completed [facility] 00:00:00 [facility] HPV 2016-01-20 Completed [facility] 00:00:00 [facility] HPV 2016-01-20 Completed [facility] 00:00:00 [facility] HPV 2016-01-20 Completed [facility] 00:00:00 [facility] HPV 2016-01-20 Completed [facility] 00:00:00 [facility] HPV 2016-01-20 Completed [facility] 00:00:00 [facility] HPV 2016-01-20 Completed [facility] 00:00:00 [facility] HPV 2016-01-20 Completed [facility] 00:00:00 [facility] HPV 2016-01-20 Completed [facility] 00:00:00 [facility] HPV 2016-01-20 Completed [facility] 00:00:00 [facility] HPV 2016-01-20 Completed [facility] 00:00:00 [facility] HPV 2016-01-20 Completed [facility] 00:00:00 [facility] HPV 2016-01-20 Completed [facility] 00:00:00 [facility] HPV 2016-01-20 Completed [facility] 00:00:00 [facility] HPV 2016-01-20 Completed [facility] 00:00:00 [facility] HPV 2016-01-20 Completed [facility] 00:00:00 [facility] HPV 2016-01-20 Completed [facility] 00:00:00 [facility] HPV 2016-01-20 Completed [facility] 00:00:00 [facility] HPV 2016-01-20 Completed [facility] 00[facility]00:00 [facility] HPV 2016-01-20 Completed [facility] 00[facility]00:00 [facility] HPV 2016-01-20 Completed [facility] 00[facility]00:00 [facility] HPV 2016-01-20 Completed [facility] 00[facility]00:00 [facility] HPV 2016-01-20 Completed [facility] 00[facility]00:00 [facility] HPV 2016-01-20 Completed [facility] 00[facility]00:00 [facility] HPV 2016-01-20 Completed [facility] 00[facility]00:00 [facility] HPV 2016-01-20 Completed [facility] 00[facility]00:00 [facility] HPV 2016-01-20 Completed [facility] 00[facility]00:00 [facility] HPV 2016-01-20 Completed [facility] 00[facility]00:00 [facility] HPV 2016-01-20 Completed [facility] 00[facility]00:00 [facility] HPV 2016-01-20 Completed [facility] 00[facility]00:00 [facility] HPV 2016-01-20 Completed [facility] 00[facility]00:00 [facility] HPV 2016-01-20 Completed [facility] 00[facility]00:00 [facility] HPV 2016-01-20 Completed [facility] 00[facility]00:00 [facility] HPV 2016-01-20 Completed [facility] 00[facility]00:00 [facility] HPV 2016-01-20 Completed [facility] 00[facility]00:00 [facility] HPV 2016-01-20 Completed [facility] 00[facility]00:00 [facility] HPV 2016-01-20 Completed [facility] 00[facility]00:00 [facility] HPV 2016-01-20 Completed [facility] 00[facility]00:00 [facility] HPV 2016-01-20 Completed [facility] 00[facility]00:00 [facility] HPV 2016-01-20 Completed [facility] 00[facility]00:00 [facility] HPV 2016-01-20 Completed [facility] 00:00:00 [facility] HPV 2016-01-20 Completed [facility] 00[facility]00:00 [facility] HPV 2016-01-20 Completed [facility] 00[facility]00:00 [facility] HPV 2016-01-20 Completed [facility] 00:00:00 [facility] HPV 2016-01-20 Completed [facility] 00:00:00 [facility] HPV 2016-01-20 Completed [facility] 00:00:00 [facility] HPV 2016-01-20 Completed [facility] 00:00:00 [facility] HPV 2016-01-20 Completed [facility] 00:00:00 [facility] HPV 2016-01-20 Completed [facility] 00:00:00 [facility] HPV 2016-01-20 Completed [facility] 00:00:00 [facility] HPV 2016-01-20 Completed [facility] 00:00:00 [facility] HPV 2016-01-20 Completed [facility] 00:00:00 [facility] HPV 2016-01-20 Completed [facility] 00:00:00 [facility] HPV 2016-01-20 Completed [facility] 00:00:00 [facility] HPV 2016-01-20 Completed [facility] 00:00:00 [facility] HPV 2016-01-20 Completed [facility] 00:00:00 [facility] HPV 2016-01-20 Completed [facility] 00:00:00 [facility] HPV 2016-01-20 Completed [facility] 00:00:00 [facility] HPV 2016-01-20 Completed [facility] 00:00:00 [facility] HPV 2016-01-20 Completed [facility] 00:00:00 [facility] HPV 2016-01-20 Completed [facility] 00:00:00 [facility] HPV 2016-01-20 Completed [facility] 00:00:00 [facility] HPV 2016-01-20 Completed [facility] 00:00:00 [facility] HPV 2016-01-20 Completed [facility] 00:00:00 [facility] HPV 2016-01-20 Completed [facility] 00:00:00 [facility] HPV 2016-01-20 Completed [facility] 00:00:00 [facility] HPV 2016-01-20 Completed [facility] 00:00:00 [facility] HPV 2016-01-20 Completed [facility] 00:00:00 [facility] HPV 2016-01-20 Completed [facility] 00:00:00 [facility] HPV 2016-01-20 Completed [facility] 00:00:00 [facility] HPV 2016-01-20 Completed [facility] 00:00:00 [facility] HPV 2016-01-20 Completed [facility] 00:00:00 [facility] HPV 2016-01-20 Completed [facility] 00:00:00 [facility] HPV 2016-01-20 Completed [facility] 00:00:00 [facility] HPV 2016-01-20 Completed [facility] 00:00:00 [facility] HPV 2016-01-20 Completed [facility] 00:00:00 [facility] HPV 2016-01-20 Completed [facility] 00:00:00 [facility] HPV 2016-01-20 Completed [facility] 00:00:00 [facility] HPV 2016-01-20 Completed [facility] 00:00:00 [facility] HPV 2016-01-20 Completed [facility] 00:00:00 [facility] HPV 2016-01-20 Completed [facility] 00:00:00 [facility] HPV 2016-01-20 Completed [facility] 00:00:00 [facility] HPV 2016-01-20 Completed [facility] 00:00:00 [facility] HPV 2016-01-20 Completed [facility] 00:00:00 [facility] HPV 2016-01-20 Completed [facility] 00:00:00 [facility] HPV 2016-01-20 Completed [facility] 00:00:00 [facility] Influenza Virus 2015-07-08 Completed [facility] IM 3+ 00:00:00 [facility] HPV9 2015-07-08 Completed [facility] 00:00:00 [facility] Influenza Virus 2015-07-08 Completed [facility] IM 3+ 00:00:00 [facility] HPV9 2015-07-08 Completed [facility] 00:00:00 [facility] Influenza Virus 2015-07-08 Completed [facility] IM 3+ 00:00:00 [facility] HPV9 2015-07-08 Completed [facility] 00:00:00 [facility] Influenza Virus 2015-07-08 Completed [facility] IM 3+ 00:00:00 [facility] HPV9 2015-07-08 Completed [facility] 00:00:00 [facility] Influenza Virus 2015-07-08 Completed [facility] IM 3+ 00:00:00 [facility] HPV9 2015-07-08 Completed [facility] 00:00:00 [facility] Influenza Virus 2015-07-08 Completed [facility] IM 3+ 00:00:00 [facility] HPV9 2015-07-08 Completed [facility] 00:00:00 [facility] Influenza Virus 2015-07-08 Completed [facility] IM 3+ 00:00:00 [facility] HPV9 2015-07-08 Completed [facility] 00:00:00 [facility] Influenza Virus 2015-07-08 Completed [facility] IM 3+ 00:00:00 [facility] HPV9 2015-07-08 Completed [facility] 00:00:00 [facility] Influenza Virus 2015-07-08 Completed [facility] IM 3+ 00:00:00 [facility] HPV9 2015-07-08 Completed [facility] 00:00:00 [facility] Influenza Virus 2015-07-08 Completed [facility] IM 3+ 00:00:00 [facility] HPV9 2015-07-08 Completed [facility] 00:00:00 [facility] Influenza Virus 2015-07-08 Completed [facility] IM 3+ 00:00:00 [facility] HPV9 2015-07-08 Completed [facility] 00:00:00 [facility] Influenza Virus 2015-07-08 Completed [facility] IM 3+ 00:00:00 [facility] HPV9 2015-07-08 Completed [facility] 00:00:00 [facility] Influenza Virus 2015-07-08 Completed [facility] IM 3+ 00:00:00 [facility] HPV9 2015-07-08 Completed [facility] 00:00:00 [facility] Influenza Virus 2015-07-08 Completed [facility] IM 3+ 00:00:00 [facility] HPV9 2015-07-08 Completed [facility] 00[facility]00:00 [facility] Influenza Virus 2015-07-08 Completed [facility] Vaccine Quad IM 3+ 00:00:00 [facility] HPV9 2015-07-08 Completed [facility] 00:00:00 [facility] Influenza Virus 2015-07-08 Completed [facility] Vaccine Quad IM 3+ 00:00:00 [facility] HPV9 2015-07-08 Completed [facility] 00:00:00 [facility] Influenza Virus 2015-07-08 Completed [facility] Vaccine Quad IM 3+ 00:00:00 [facility] HPV9 2015-07-08 Completed [facility] 00:00:00 [facility] Influenza Virus 2015-07-08 Completed [facility] Vaccine Quad IM 3+ 00:00:00 [facility] HPV9 2015-07-08 Completed [facility] 00:00:00 [facility] Influenza Virus 2015-07-08 Completed [facility] Vaccine Quad IM 3+ 00:00:00 [facility] HPV9 2015-07-08 Completed [facility] 00:00:00 [facility] Influenza Virus 2015-07-08 Completed [facility] Vaccine Quad IM 3+ 00:00:00 [facility] HPV9 2015-07-08 Completed [facility] 00:00:00 [facility] Influenza Virus 2015-07-08 Completed [facility] Vaccine Quad IM 3+ 00:00:00 [facility] HPV9 2015-07-08 Completed [facility] 00:00:00 [facility] Influenza Virus 2015-07-08 Completed [facility] Vaccine Quad IM 3+ 00:00:00 [facility] HPV9 2015-07-08 Completed [facility] 00:00:00 [facility] Influenza Virus 2015-07-08 Completed [facility] Vaccine Quad IM 3+ 00:00:00 [facility] HPV9 2015-07-08 Completed [facility] 00:00:00 [facility] Influenza Virus 2015-07-08 Completed [facility] Vaccine Quad IM 3+ 00:00:00 [facility] HPV9 2015-07-08 Completed [facility] 00:00:00 [facility] Influenza Virus 2015-07-08 Completed [facility] Vaccine Quad IM 3+ 00:00:00 [facility] HPV9 2015-07-08 Completed [facility] 00:00:00 [facility] Influenza Virus 2015-07-08 Completed [facility] Vaccine Quad IM 3+ 00:00:00 [facility] HPV9 2015-07-08 Completed [facility] 00:00:00 [facility] Influenza Virus 2015-07-08 Completed [facility] Vaccine Quad IM 3+ 00:00:00 [facility] HPV9 2015-07-08 Completed [facility] 00:00:00 [facility] Influenza Virus 2015-07-08 Completed [facility] Vaccine Quad IM 3+ 00:00:00 [facility] HPV9 2015-07-08 Completed [facility] 00:00:00 [facility] Influenza Virus 2015-07-08 Completed [facility] Vaccine Quad IM 3+ 00:00:00 [facility] HPV9 2015-07-08 Completed [facility] 00:00:00 [facility] Influenza Virus 2015-07-08 Completed [facility] Vaccine Quad IM 3+ 00:00:00 [facility] HPV9 2015-07-08 Completed [facility] 00:00:00 [facility] Influenza Virus 2015-07-08 Completed [facility] Vaccine Quad IM 3+ 00:00:00 [facility] HPV9 2015-07-08 Completed [facility] 00:00:00 [facility] Influenza Virus 2015-07-08 Completed [facility] Vaccine Quad IM 3+ 00:00:00 [facility] HPV9 2015-07-08 Completed [facility] 00:00:00 [facility] Influenza Virus 2015-07-08 Completed [facility] Vaccine Quad IM 3+ 00:00:00 [facility] HPV9 2015-07-08 Completed [facility] 00:00:00 [facility] Influenza Virus 2015-07-08 Completed [facility] Vaccine Quad IM 3+ 00:00:00 [facility] HPV9 2015-07-08 Completed [facility] 00:00:00 [facility] Influenza Virus 2015-07-08 Completed [facility] Vaccine Quad IM 3+ 00:00:00 [facility] HPV9 2015-07-08 Completed [facility] 00:00:00 [facility] Influenza Virus 2015-07-08 Completed [facility] Vaccine Quad IM 3+ 00:00:00 [facility] HPV9 2015-07-08 Completed [facility] 00:00:00 [facility] Influenza Virus 2015-07-08 Completed [facility] Vaccine Quad IM 3+ 00:00:00 [facility] HPV9 2015-07-08 Completed [facility] 00:00:00 [facility] Influenza Virus 2015-07-08 Completed [facility] Vaccine Quad IM 3+ 00:00:00 [facility] HPV9 2015-07-08 Completed [facility] 00:00:00 [facility] Influenza Virus 2015-07-08 Completed [facility] Vaccine Quad IM 3+ 00:00:00 [facility] HPV9 2015-07-08 Completed [facility] 00:00:00 [facility] Influenza Virus 2015-07-08 Completed [facility] Vaccine Quad IM 3+ 00:00:00 [facility] HPV9 2015-07-08 Completed [facility] 00:00:00 [facility] Influenza Virus 2015-07-08 Completed [facility] Vaccine Quad IM 3+ 00:00:00 [facility] HPV9 2015-07-08 Completed [facility] 00:00:00 [facility] Influenza Virus 2015-07-08 Completed [facility] Vaccine Quad IM 3+ 00:00:00 [facility] HPV9 2015-07-08 Completed [facility] 00:00:00 [facility] Influenza Virus 2015-07-08 Completed [facility] Vaccine Quad IM 3+ 00:00:00 [facility] HPV9 2015-07-08 Completed [facility] 00:00:00 [facility] Influenza Virus 2015-07-08 Completed [facility] Vaccine Quad IM 3+ 00:00:00 [facility] HPV9 2015-07-08 Completed [facility] 00:00:00 [facility] Influenza Virus 2015-07-08 Completed [facility] Vaccine Quad IM 3+ 00:00:00 [facility] HPV9 2015-07-08 Completed [facility] 00:00:00 [facility] Influenza Virus 2015-07-08 Completed [facility] Vaccine Quad IM 3+ 00:00:00 [facility] HPV9 2015-07-08 Completed [facility] 00:00:00 [facility] Influenza Virus 2015-07-08 Completed [facility] Vaccine Quad IM 3+ 00:00:00 [facility] HPV9 2015-07-08 Completed [facility] 00:00:00 [facility] Influenza Virus 2015-07-08 Completed [facility] Vaccine Quad IM 3+ 00:00:00 [facility] HPV9 2015-07-08 Completed [facility] 00:00:00 [facility] Influenza Virus 2015-07-08 Completed [facility] Vaccine Quad IM 3+ 00:00:00 [facility] HPV9 2015-07-08 Completed [facility] 00:00:00 [facility] Influenza Virus 2015-07-08 Completed [facility] Vaccine Quad IM 3+ 00:00:00 [facility] HPV9 2015-07-08 Completed [facility] 00:00:00 [facility] Influenza Virus 2015-07-08 Completed [facility] Vaccine Quad IM 3+ 00:00:00 [facility] HPV9 2015-07-08 Completed [facility] 00:00:00 [facility] Influenza Virus 2015-07-08 Completed [facility] Vaccine Quad IM 3+ 00:00:00 [facility] HPV9 2015-07-08 Completed [facility] 00:00:00 [facility] Influenza Virus 2015-07-08 Completed [facility] Vaccine Quad IM 3+ 00:00:00 [facility] HPV9 2015-07-08 Completed [facility] 00:00:00 [facility] Influenza Virus 2015-07-08 Completed [facility] Vaccine Quad IM 3+ 00:00:00 [facility] HPV9 2015-07-08 Completed [facility] 00:00:00 [facility] Influenza Virus 2015-07-08 Completed [facility] Vaccine Quad IM 3+ 00:00:00 [facility] HPV9 2015-07-08 Completed [facility] 00:00:00 [facility] Influenza Virus 2015-07-08 Completed [facility] Vaccine Quad IM 3+ 00:00:00 [facility] HPV9 2015-07-08 Completed [facility] 00:00:00 [facility] Influenza Virus 2015-07-08 Completed [facility] Vaccine Quad IM 3+ 00:00:00 [facility] HPV9 2015-07-08 Completed [facility] 00:00:00 [facility] Influenza Virus 2015-07-08 Completed [facility] Vaccine Quad IM 3+ 00:00:00 [facility] HPV9 2015-07-08 Completed [facility] 00:00:00 [facility] Influenza Virus 2015-07-08 Completed [facility] Vaccine Quad IM 3+ 00:00:00 [facility] HPV9 2015-07-08 Completed [facility] 00:00:00 [facility] Influenza Virus 2015-07-08 Completed [facility] Vaccine Quad IM 3+ 00:00:00 [facility] HPV9 2015-07-08 Completed [facility] 00:00:00 [facility] Influenza Virus 2015-07-08 Completed [facility] Vaccine Quad IM 3+ 00:00:00 [facility] HPV9 2015-07-08 Completed [facility] 00:00:00 [facility] Influenza Virus 2015-07-08 Completed [facility] Vaccine Quad IM 3+ 00:00:00 [facility] HPV9 2015-07-08 Completed [facility] 00:00:00 [facility] Influenza Virus 2015-07-08 Completed [facility] Vaccine Quad IM 3+ 00:00:00 [facility] HPV9 2015-07-08 Completed [facility] 00:00:00 [facility] Influenza Virus 2015-07-08 Completed [facility] Vaccine Quad IM 3+ 00:00:00 [facility] HPV9 2015-07-08 Completed [facility] 00:00:00 [facility] Influenza Virus 2015-07-08 Completed [facility] Vaccine Quad IM 3+ 00:00:00 [facility] HPV9 2015-07-08 Completed [facility] 00:00:00 [facility] Influenza Virus 2015-07-08 Completed [facility] Vaccine Quad IM 3+ 00:00:00 [facility] HPV9 2015-07-08 Completed [facility] 00:00:00 [facility] Influenza Virus 2015-07-08 Completed [facility] Vaccine Quad IM 3+ 00:00:00 [facility] HPV9 2015-07-08 Completed [facility] 00:00:00 [facility] Influenza Virus 2015-07-08 Completed [facility] Vaccine Quad IM 3+ 00:00:00 [facility] HPV9 2015-07-08 Completed [facility] 00:00:00 [facility] Influenza Virus 2015-07-08 Completed [facility] Vaccine Quad IM 3+ 00:00:00 [facility] HPV9 2015-07-08 Completed [facility] 00:00:00 [facility] Influenza Virus 2015-07-08 Completed [facility] Vaccine Quad IM 3+ 00:00:00 [facility] HPV9 2015-07-08 Completed [facility] 00:00:00 [facility] Influenza Virus 2015-07-08 Completed [facility] Vaccine Quad IM 3+ 00:00:00 [facility] HPV9 2015-07-08 Completed [facility] 00:00:00 [facility] Influenza Virus 2015-07-08 Completed [facility] Vaccine Quad IM 3+ 00:00:00 [facility] HPV9 2015-07-08 Completed [facility] 00:00:00 [facility] Influenza Virus 2015-07-08 Completed [facility] Vaccine Quad IM 3+ 00:00:00 [facility] HPV9 2015-07-08 Completed [facility] 00:00:00 [facility] Influenza Virus 2015-07-08 Completed [facility] Vaccine Quad IM 3+ 00:00:00 [facility] HPV9 2015-07-08 Completed [facility] 00:00:00 [facility] Influenza Virus 2015-07-08 Completed [facility] Vaccine Quad IM 3+ 00:00:00 [facility] HPV9 2015-07-08 Completed [facility] 00:00:00 [facility] Influenza Virus 2015-07-08 Completed [facility] Vaccine Quad IM 3+ 00:00:00 [facility] HPV9 2015-07-08 Completed [facility] 00:00:00 [facility] Influenza Virus 2015-07-08 Completed [facility] Vaccine Quad IM 3+ 00:00:00 [facility] HPV9 2015-07-08 Completed [facility] 00:00:00 [facility] Influenza Virus 2015-07-08 Completed [facility] Vaccine Quad IM 3+ 00:00:00 [facility] HPV9 2015-07-08 Completed [facility] 00:00:00 [facility] Influenza Virus 2015-07-08 Completed [facility] Vaccine Quad IM 3+ 00:00:00 [facility] HPV9 2015-07-08 Completed [facility] 00:00:00 [facility] Influenza Virus 2015-07-08 Completed [facility] Vaccine Quad IM 3+ 00:00:00 [facility] HPV9 2015-07-08 Completed [facility] 00:00:00 [facility] Influenza Virus 2015-07-08 Completed [facility] Vaccine Quad IM 3+ 00:00:00 [facility] HPV9 2015-07-08 Completed [facility] 00:00:00 [facility] Influenza Virus 2015-07-08 Completed [facility] Vaccine Quad IM 3+ 00:00:00 [facility] HPV9 2015-07-08 Completed [facility] 00:00:00 [facility] Influenza Virus 2015-07-08 Completed [facility] Vaccine Quad IM 3+ 00:00:00 [facility] HPV9 2015-07-08 Completed [facility] 00:00:00 [facility] Influenza Virus 2015-07-08 Completed [facility] Vaccine Quad IM 3+ 00:00:00 [facility] HPV9 2015-07-08 Completed [facility] 00:00:00 [facility] Influenza Virus 2015-07-08 Completed [facility] Vaccine Quad IM 3+ 00:00:00 [facility] HPV9 2015-07-08 Completed [facility] 00:00:00 [facility] Influenza Virus 2015-07-08 Completed [facility] of Vaccine Quad IM 3+ 00:00:00 [facility] HPV9 2015-07-08 Completed [facility] 00:00:00 [facility] Influenza Virus 2015-07-08 Completed [facility] Vaccine Quad IM 3+ 00:00:00 [facility] HPV9 2015-07-08 Completed [facility] 00:00:00 [facility] Influenza Virus 2015-07-08 Completed [facility] Vaccine Quad IM 3+ 00:00:00 [facility] HPV9 2015-07-08 Completed [facility] 00:00:00 [facility] Influenza Virus 2015-07-08 Completed [facility] Vaccine Quad IM 3+ 00:00:00 [facility] HPV9 2015-07-08 Completed [facility] 00:00:00 [facility] Influenza Virus 2015-07-08 Completed [facility] Vaccine Quad IM 3+ 00:00:00 [facility] HPV9 2015-07-08 Completed [facility] 00:00:00 [facility] Influenza Virus 2015-07-08 Completed [facility] Vaccine Quad IM 3+ 00:00:00 [facility] HPV9 2015-07-08 Completed [facility] 00:00:00 [facility] Influenza Virus 2015-07-08 Completed [facility] Vaccine Quad IM 3+ 00:00:00 [facility] HPV9 2015-07-08 Completed [facility] 00:00:00 [facility] Influenza Virus 2015-07-08 Completed [facility] Vaccine Quad IM 3+ 00:00:00 [facility] HPV9 2015-07-08 Completed [facility] 00:00:00 [facility] Influenza Virus 2015-07-08 Completed [facility] Vaccine Quad IM 3+ 00:00:00 [facility] HPV9 2015-07-08 Completed [facility] 00:00:00 [facility] Influenza Virus 2015-07-08 Completed [facility] Vaccine Quad IM 3+ 00:00:00 [facility] HPV9 2015-07-08 Completed [facility] 00:00:00 [facility] Influenza Virus 2015-07-08 Completed [facility] Vaccine Quad IM 3+ 00:00:00 [facility] HPV9 2015-07-08 Completed [facility] 00:00:00 [facility] Influenza Virus 2015-07-08 Completed [facility] Vaccine Quad IM 3+ 00:00:00 [facility] HPV9 2015-07-08 Completed [facility] 00:00:00 [facility] Influenza Virus 2015-07-08 Completed [facility] Vaccine Quad IM 3+ 00:00:00 [facility] HPV9 2015-07-08 Completed [facility] 00:00:00 [facility] Influenza Virus 2015-07-08 Completed [facility] of Vaccine Quad IM 3+ 00:00:00 [facility] HPV9 2015-07-08 Completed [facility] 00:00:00 [facility] Influenza Virus 2015-07-08 Completed [facility] of Vaccine Quad IM 3+ 00:00:00 [facility] HPV9 2015-07-08 Completed [facility] 00:00:00 [facility] Influenza Virus 2015-07-08 Completed [facility] of Vaccine Quad IM 3+ 00:00:00 [facility] HPV9 2015-07-08 Completed [facility] 00:00:00 [facility] Influenza Virus 2015-07-08 Completed [facility] Vaccine Quad IM 3+ 00:00:00 [facility] HPV9 2015-07-08 Completed [facility] 00:00:00 [facility] Influenza Virus 2015-07-08 Completed [facility] of Vaccine Quad IM 3+ 00:00:00 [facility] HPV9 2015-07-08 Completed [facility] 00:00:00 [facility] Influenza Virus 2015-07-08 Completed [facility] Vaccine Quad IM 3+ 00:00:00 [facility] HPV9 2015-07-08 Completed [facility] 00:00:00 [facility] Influenza Virus 2015-07-08 Completed [facility] of Vaccine Quad IM 3+ 00:00:00 [facility] HPV9 2015-07-08 Completed [facility] 00:00:00 [facility] Influenza Virus 2014-04-02 Completed [facility] Vaccine (3+ yrs) 00:00:00 [facility] Influenza Virus 2014-04-02 Completed [facility] of Vaccine (3+ yrs) 00:00:00 [facility] Influenza Virus 2014-04-02 Completed [facility] Vaccine (3+ yrs) 00:00:00 [facility] Influenza Virus 2014-04-02 Completed [facility] Vaccine (3+ yrs) 00:00:00 [facility] Influenza Virus 2014-04-02 Completed [facility] Vaccine (3+ yrs) 00:00:00 [facility] Influenza Virus 2014-04-02 Completed [facility] Vaccine (3+ yrs) 00:00:00 [facility] Influenza Virus 2014-04-02 Completed [facility] of Vaccine (3+ yrs) 00:00:00 [facility] Influenza Virus 2014-04-02 Completed [facility] Vaccine (3+ yrs) 00:00:00 [facility] Influenza Virus 2014-04-02 Completed [facility] Vaccine (3+ yrs) 00:00:00 [facility] Influenza Virus 2014-04-02 Completed [facility] Vaccine (3+ yrs) 00:00:00 [facility] Influenza Virus 2014-04-02 Completed [facility] Vaccine (3+ yrs) 00:00:00 [facility] Influenza Virus 2014-04-02 Completed [facility] Vaccine (3+ yrs) 00:00:00 [facility] Influenza Virus 2014-04-02 Completed [facility] Vaccine (3+ yrs) 00:00:00 [facility] Influenza Virus 2014-04-02 Completed [facility] Vaccine (3+ yrs) 00:00:00 [facility] Influenza Virus 2014-04-02 Completed [facility] Vaccine (3+ yrs) 00:00:00 [facility] Influenza Virus 2014-04-02 Completed [facility] Vaccine (3+ yrs) 00:00:00 [facility] Influenza Virus 2014-04-02 Completed [facility] Vaccine (3+ yrs) 00:00:00 [facility] Influenza Virus 2014-04-02 Completed [facility] Vaccine (3+ yrs) 00:00:00 [facility] Influenza Virus 2014-04-02 Completed [facility] Vaccine (3+ yrs) 00:00:00 [facility] Influenza Virus 2014-04-02 Completed [facility] Vaccine (3+ yrs) 00:00:00 [facility] Influenza Virus 2014-04-02 Completed [facility] Vaccine (3+ yrs) 00:00:00 [facility] Influenza Virus 2014-04-02 Completed [facility] Vaccine (3+ yrs) 00:00:00 [facility] Influenza Virus 2014-04-02 Completed [facility] Vaccine (3+ yrs) 00:00:00 [facility] Influenza Virus 2014-04-02 Completed [facility] Vaccine (3+ yrs) 00:00:00 [facility] Influenza Virus 2014-04-02 Completed [facility] Vaccine (3+ yrs) 00:00:00 [facility] Influenza Virus 2014-04-02 Completed [facility] Vaccine (3+ yrs) 00:00:00 [facility] Influenza Virus 2014-04-02 Completed [facility] Vaccine (3+ yrs) 00:00:00 [facility] Influenza Virus 2014-04-02 Completed [facility] Vaccine (3+ yrs) 00:00:00 [facility] Influenza Virus 2014-04-02 Completed [facility] Vaccine (3+ yrs) 00:00:00 [facility] Influenza Virus 2014-04-02 Completed [facility] Vaccine (3+ yrs) 00:00:00 [facility] Influenza Virus 2014-04-02 Completed [facility] Vaccine (3+ yrs) 00:00:00 [facility] Influenza Virus 2014-04-02 Completed [facility] Vaccine (3+ yrs) 00:00:00 [facility] Influenza Virus 2014-04-02 Completed [facility] Vaccine (3+ yrs) 00:00:00 [facility] Influenza Virus 2014-04-02 Completed [facility] Vaccine (3+ yrs) 00:00:00 [facility] Influenza Virus 2014-04-02 Completed [facility] Vaccine (3+ yrs) 00:00:00 [facility] Influenza Virus 2014-04-02 Completed [facility] Vaccine (3+ yrs) 00:00:00 [facility] Influenza Virus 2014-04-02 Completed [facility] Vaccine (3+ yrs) 00:00:00 [facility] Influenza Virus 2014-04-02 Completed [facility] Vaccine (3+ yrs) 00:00:00 [facility] Influenza Virus 2014-04-02 Completed [facility] Vaccine (3+ yrs) 00:00:00 [facility] Influenza Virus 2014-04-02 Completed [facility] Vaccine (3+ yrs) 00:00:00 [facility] Influenza Virus 2014-04-02 Completed [facility] Vaccine (3+ yrs) 00:00:00 [facility] Influenza Virus 2014-04-02 Completed [facility] Vaccine (3+ yrs) 00:00:00 [facility] Influenza Virus 2014-04-02 Completed [facility] Vaccine (3+ yrs) 00:00:00 [facility] Influenza Virus 2014-04-02 Completed [facility] (3[facility]) 00:00:00 [facility] Influenza Virus 2014-04-02 Completed [facility]ine (3+ yrs) 00:00:00 [facility] Influenza Virus 2014-04-02 Completed [facility] Vaccine (3+ yrs) 00:00:00 [facility] Influenza Virus 2014-04-02 Completed [facility] Vaccine (3+ yrs) 00:00:00 [facility] Influenza Virus 2014-04-02 Completed [facility] Vaccine (3+ yrs) 00:00:00 [facility] Influenza Virus 2014-04-02 Completed [facility] Vaccine (3+ yrs) 00:00:00 [facility] Influenza Virus 2014-04-02 Completed [facility] Vaccine (3+ yrs) 00:00:00 [facility] Influenza Virus 2014-04-02 Completed [facility] Vaccine (3+ yrs) 00:00:00 [facility] Influenza Virus 2014-04-02 Completed [facility] Vaccine (3+ yrs) 00:00:00 [facility] Influenza Virus 2014-04-02 Completed [facility] Vaccine (3+ yrs) 00:00:00 [facility] Influenza Virus 2014-04-02 Completed [facility] Vaccine (3+ yrs) 00:00:00 [facility] Influenza Virus 2014-04-02 Completed [facility] Vaccine (3+ yrs) 00:00:00 [facility] Influenza Virus 2014-04-02 Completed [facility] Vaccine (3+ yrs) 00:00:00 [facility] Influenza Virus 2014-04-02 Completed [facility] Vaccine (3+ yrs) 00:00:00 [facility] Influenza Virus 2014-04-02 Completed [facility] Vaccine (3+ yrs) 00:00:00 [facility] Influenza Virus 2014-04-02 Completed [facility] Vaccine (3+ yrs) 00:00:00 [facility] Influenza Virus 2014-04-02 Completed [facility] Vaccine (3+ yrs) 00:00:00 [facility] Influenza Virus 2014-04-02 Completed [facility] Vaccine (3+ yrs) 00:00:00 [facility] Influenza Virus 2014-04-02 Completed [facility] Vaccine (3+ yrs) 00:00:00 [facility] Influenza Virus 2014-04-02 Completed [facility] Vaccine (3+ yrs) 00:00:00 [facility] Influenza Virus 2014-04-02 Completed [facility] Vaccine (3+ yrs) 00:00:00 [facility] Influenza Virus 2014-04-02 Completed [facility] Vaccine (3+ yrs) 00:00:00 [facility] Influenza Virus 2014-04-02 Completed [facility] Vaccine (3+ yrs) 00:00:00 [facility] Influenza Virus 2014-04-02 Completed [facility] Vaccine (3+ yrs) 00:00:00 [facility] Influenza Virus 2014-04-02 Completed [facility] Vaccine (3+ yrs) 00:00:00 [facility] Influenza Virus 2014-04-02 Completed [facility] Vaccine (3+ yrs) 00:00:00 [facility] Influenza Virus 2014-04-02 Completed [facility] Vaccine (3+ yrs) 00:00:00 [facility] Influenza Virus 2014-04-02 Completed [facility] Vaccine (3+ yrs) 00:00:00 [facility] Influenza Virus 2014-04-02 Completed [facility] Vaccine (3+ yrs) 00:00:00 [facility] Influenza Virus 2014-04-02 Completed [facility] Vaccine (3+ yrs) 00:00:00 [facility] Influenza Virus 2014-04-02 Completed [facility] Vaccine (3+ yrs) 00:00:00 [facility] Influenza Virus 2014-04-02 Completed [facility] Vaccine (3+ yrs) 00:00:00 [facility] Influenza Virus 2014-04-02 Completed [facility] Vaccine (3+ yrs) 00:00:00 [facility] Influenza Virus 2014-04-02 Completed [facility] Vaccine (3+ yrs) 00:00:00 [facility] Influenza Virus 2014-04-02 Completed [facility] Vaccine (3+ yrs) 00:00:00 [facility] Influenza Virus 2014-04-02 Completed [facility] Vaccine (3+ yrs) 00:00:00 [facility] Influenza Virus 2014-04-02 Completed [facility] Vaccine (3+ yrs) 00:00:00 [facility] Influenza Virus 2014-04-02 Completed [facility] Vaccine (3+ yrs) 00:00:00 [facility] Influenza Virus 2014-04-02 Completed [facility] Vaccine (3+ yrs) 00:00:00 [facility] Influenza Virus 2014-04-02 Completed [facility] Vaccine (3+ yrs) 00:00:00 [facility] Influenza Virus 2014-04-02 Completed [facility] Vaccine (3+ yrs) 00:00:00 [facility] Influenza Virus 2014-04-02 Completed [facility] Vaccine (3+ yrs) 00:00:00 [facility] Influenza Virus 2014-04-02 Completed [facility] Vaccine (3+ yrs) 00:00:00 [facility] Influenza Virus 2014-04-02 Completed [facility] Vaccine (3+ yrs) 00:00:00 [facility] Influenza Virus 2014-04-02 Completed [facility] Vaccine (3+ yrs) 00:00:00 [facility] Influenza Virus 2014-04-02 Completed [facility] Vaccine (3+ yrs) 00:00:00 [facility] Influenza Virus 2014-04-02 Completed [facility] Vaccine (3+ yrs) 00:00:00 [facility] Influenza Virus 2014-04-02 Completed [facility] Vaccine (3+ yrs) 00:00:00 [facility] Influenza Virus 2014-04-02 Completed [facility] Vaccine (3+ yrs) 00:00:00 [facility] Influenza Virus 2014-04-02 Completed [facility] Vaccine (3+ yrs) 00:00:00 [facility] Influenza Virus 2014-04-02 Completed [facility] Vaccine (3+ yrs) 00:00:00 [facility] Influenza Virus 2014-04-02 Completed [facility] Vaccine (3+ yrs) 00:00:00 [facility] Influenza Virus 2014-04-02 Completed [facility] Vaccine (3+ yrs) 00:00:00 [facility] Influenza Virus 2014-04-02 Completed [facility] Vaccine (3+ yrs) 00:00:00 [facility] Influenza Virus 2014-04-02 Completed [facility] Vaccine (3+ yrs) 00:00:00 [facility] Influenza Virus 2014-04-02 Completed [facility] Vaccine (3+ yrs) 00:00:00 [facility] Influenza Virus 2014-04-02 Completed [facility] Vaccine (3+ yrs) 00:00:00 [facility] Influenza Virus 2014-04-02 Completed [facility] Vaccine (3+ yrs) 00:00:00 [facility] Influenza Virus 2014-04-02 Completed [facility] Vaccine (3+ yrs) 00:00:00 [facility] Influenza Virus 2014-04-02 Completed [facility] Vaccine (3+ yrs) 00:00:00 [facility] Influenza Virus 2014-04-02 Completed [facility] Vaccine (3+ yrs) 00:00:00 [facility] Influenza Virus 2014-04-02 Completed [facility] Vaccine (3+ yrs) 00:00:00 [facility] Influenza Virus 2013-05-22 Completed [facility] Vaccine (3+ yrs) 00:00:00 [facility] Meningococcal 2013-05-22 Completed [facility] Polysaccharide 00:00:00 [facility] (groups A, C, Y and Branc h W-135) conjugate vaccine (MCV4P) TDAP 2013-05-22 Completed [facility] 00:00:00 [facility] Influenza Virus 2013-05-22 Completed [facility] Vaccine (3+ yrs) 00:00:00 [facility] Meningococcal 2013-05-22 Completed [facility] Polysaccharide 00:00:00 [facility] (groups A, C, Y and Branc h W-135) conjugate vaccine (MCV4P) TDAP 2013-05-22 Completed [facility] 00:00:00 [facility] Influenza Virus 2013-05-22 Completed [facility] Vaccine (3+ yrs) 00:00:00 [facility] Meningococcal 2013-05-22 Completed [facility] Polysaccharide 00:00:00 [facility] (groups A, C, Y and Branc h W-135) conjugate vaccine (MCV4P) TDAP 2013-05-22 Completed [facility] 00:00:00 [facility] Influenza Virus 2013-05-22 Completed [facility] Vaccine (3+ yrs) 00:00:00 [facility] Meningococcal 2013-05-22 Completed [facility] Polysaccharide 00:00:00 [facility] (groups A, C, Y and Branc h W-135) conjugate vaccine (MCV4P) TDAP 2013-05-22 Completed [facility] 00:00:00 [facility] Influenza Virus 2013-05-22 Completed [facility] Vaccine (3+ yrs) 00:00:00 [facility] Meningococcal 2013-05-22 Completed [facility] Polysaccharide 00:00:00 [facility] (groups A, C, Y and Branc h W-135) conjugate vaccine (MCV4P) TDAP 2013-05-22 Completed [facility] 00:00:00 [facility] Influenza Virus 2013-05-22 Completed [facility] Vaccine (3+ yrs) 00:00:00 [facility] Meningococcal 2013-05-22 Completed [facility] Polysaccharide 00:00:00 [facility] (groups A, C, Y and Branc h W-135) conjugate vaccine (MCV4P) TDAP 2013-05-22 Completed [facility] 00:00:00 [facility] Influenza Virus 2013-05-22 Completed [facility] Vaccine (3+ yrs) 00:00:00 [facility] Meningococcal 2013-05-22 Completed [facility] Polysaccharide 00:00:00 [facility] (groups A, C, Y and Branc h W-135) conjugate vaccine (MCV4P) TDAP 2013-05-22 Completed [facility] 00:00:00 [facility] Influenza Virus 2013-05-22 Completed [facility] Vaccine (3+ yrs) 00:00:00 [facility] Meningococcal 2013-05-22 Completed [facility] Polysaccharide 00:00:00 [facility] (groups A, C, Y and Branc h W-135) conjugate vaccine (MCV4P) TDAP 2013-05-22 Completed [facility] 00:00:00 [facility] Influenza Virus 2013-05-22 Completed [facility] Vaccine (3+ yrs) 00:00:00 [facility] Meningococcal 2013-05-22 Completed [facility] Polysaccharide 00:00:00 [facility] (groups A, C, Y and Branc h W-135) conjugate vaccine (MCV4P) TDAP 2013-05-22 Completed [facility] 00:00:00 [facility] Influenza Virus 2013-05-22 Completed [facility] Vaccine (3+ yrs) 00:00:00 [facility] Meningococcal 2013-05-22 Completed [facility] Polysaccharide 00:00:00 [facility] (groups A, C, Y and Branc h W-135) conjugate vaccine (MCV4P) TDAP 2013-05-22 Completed [facility] 00:00:00 [facility] Influenza Virus 2013-05-22 Completed [facility] Vaccine (3+ yrs) 00:00:00 [facility] Meningococcal 2013-05-22 Completed [facility] Polysaccharide 00:00:00 [facility] (groups A, C, Y and Branc h W-135) conjugate vaccine (MCV4P) TDAP 2013-05-22 Completed [facility] 00:00:00 [facility] Influenza Virus 2013-05-22 Completed [facility] Vaccine (3+ yrs) 00:00:00 [facility] Meningococcal 2013-05-22 Completed [facility] Polysaccharide 00:00:00 [facility] (groups A, C, Y and Branc h W-135) conjugate vaccine (MCV4P) TDAP 2013-05-22 Completed [facility] 00:00:00 [facility] Influenza Virus 2013-05-22 Completed [facility] Vaccine (3+ yrs) 00:00:00 [facility] Meningococcal 2013-05-22 Completed [facility] Polysaccharide 00:00:00 [facility] (groups A, C, Y and Branc h W-135) conjugate vaccine (MCV4P) TDAP 2013-05-22 Completed [facility] 00:00:00 [facility] Influenza Virus 2013-05-22 Completed [facility] Vaccine (3+ yrs) 00:00:00 [facility] Meningococcal 2013-05-22 Completed [facility] Polysaccharide 00:00:00 [facility] (groups A, C, Y and Branc h W-135) conjugate vaccine (MCV4P) TDAP 2013-05-22 Completed [facility] 00:00:00 [facility] Influenza Virus 2013-05-22 Completed [facility] Vaccine (3+ yrs) 00:00:00 [facility] Meningococcal 2013-05-22 Completed [facility] Polysaccharide 00:00:00 [facility] (groups A, C, Y and Branc h W-135) conjugate vaccine (MCV4P) TDAP 2013-05-22 Completed [facility] 00:00:00 [facility] Influenza Virus 2013-05-22 Completed [facility] Vaccine (3+ yrs) 00:00:00 [facility] Meningococcal 2013-05-22 Completed [facility] Polysaccharide 00:00:00 [facility] (groups A, C, Y and Branc h W-135) conjugate vaccine (MCV4P) TDAP 2013-05-22 Completed [facility] 00:00:00 [facility] Influenza Virus 2013-05-22 Completed [facility] Vaccine (3+ yrs) 00:00:00 [facility] Meningococcal 2013-05-22 Completed [facility] Polysaccharide 00:00:00 [facility] (groups A, C, Y and Branc h W-135) conjugate vaccine (MCV4P) TDAP 2013-05-22 Completed [facility] 00:00:00 [facility] Influenza Virus 2013-05-22 Completed [facility] Vaccine (3+ yrs) 00:00:00 [facility] Meningococcal 2013-05-22 Completed [facility] Polysaccharide 00:00:00 [facility] (groups A, C, Y and Branc h W-135) conjugate vaccine (MCV4P) TDAP 2013-05-22 Completed [facility] 00:00:00 [facility] Influenza Virus 2013-05-22 Completed [facility] Vaccine (3+ yrs) 00:00:00 [facility] Meningococcal 2013-05-22 Completed [facility] Polysaccharide 00:00:00 [facility] (groups A, C, Y and Branc h W-135) conjugate vaccine (MCV4P) TDAP 2013-05-22 Completed [facility] 00:00:00 [facility] Influenza Virus 2013-05-22 Completed [facility] Vaccine (3+ yrs) 00:00:00 [facility] Meningococcal 2013-05-22 Completed [facility] Polysaccharide 00:00:00 [facility] (groups A, C, Y and Branc h W-135) conjugate vaccine (MCV4P) TDAP 2013-05-22 Completed [facility] 00:00:00 [facility] Influenza Virus 2013-05-22 Completed [facility] Vaccine (3+ yrs) 00:00:00 [facility] Meningococcal 2013-05-22 Completed [facility] Polysaccharide 00:00:00 [facility] (groups A, C, Y and Branc h W-135) conjugate vaccine (MCV4P) TDAP 2013-05-22 Completed [facility] 00:00:00 [facility] Influenza Virus 2013-05-22 Completed [facility] Vaccine (3+ yrs) 00:00:00 [facility] Meningococcal 2013-05-22 Completed [facility] Polysaccharide 00:00:00 [facility] (groups A, C, Y and Branc h W-135) conjugate vaccine (MCV4P) TDAP 2013-05-22 Completed [facility] 00:00:00 [facility] Influenza Virus 2013-05-22 Completed [facility] Vaccine (3+ yrs) 00:00:00 [facility] Meningococcal 2013-05-22 Completed [facility] Polysaccharide 00:00:00 [facility] (groups A, C, Y and Branc h W-135) conjugate vaccine (MCV4P) TDAP 2013-05-22 Completed [facility] 00:00:00 [facility] Influenza Virus 2013-05-22 Completed [facility] Vaccine (3+ yrs) 00:00:00 [facility] Meningococcal 2013-05-22 Completed [facility] Polysaccharide 00:00:00 [facility] (groups A, C, Y and Branc h W-135) conjugate vaccine (MCV4P) TDAP 2013-05-22 Completed [facility] 00:00:00 [facility] Influenza Virus 2013-05-22 Completed [facility] Vaccine (3+ yrs) 00:00:00 [facility] Meningococcal 2013-05-22 Completed [facility] Polysaccharide 00:00:00 [facility] (groups A, C, Y and Branc h W-135) conjugate vaccine (MCV4P) TDAP 2013-05-22 Completed [facility] 00:00:00 [facility] Influenza Virus 2013-05-22 Completed [facility] Vaccine (3+ yrs) 00:00:00 [facility] Meningococcal 2013-05-22 Completed [facility] Polysaccharide 00:00:00 [facility] (groups A, C, Y and Branc h W-135) conjugate vaccine (MCV4P) TDAP 2013-05-22 Completed [facility] 00:00:00 [facility] Influenza Virus 2013-05-22 Completed [facility] Vaccine (3+ yrs) 00:00:00 [facility] Meningococcal 2013-05-22 Completed [facility] Polysaccharide 00:00:00 [facility] (groups A, C, Y and Branc h W-135) conjugate vaccine (MCV4P) TDAP 2013-05-22 Completed [facility] 00:00:00 [facility] Influenza Virus 2013-05-22 Completed [facility] Vaccine (3+ yrs) 00:00:00 [facility] Meningococcal 2013-05-22 Completed [facility] Polysaccharide 00:00:00 [facility] (groups A, C, Y and Branc h W-135) conjugate vaccine (MCV4P) TDAP 2013-05-22 Completed [facility] 00:00:00 [facility] Influenza Virus 2013-05-22 Completed [facility] Vaccine (3+ yrs) 00:00:00 [facility] Meningococcal 2013-05-22 Completed [facility] Polysaccharide 00:00:00 [place] [facility] (groups A, C, Y and Branc h W-135) conjugate vaccine (MCV4P) TDAP 2013-05-22 Completed [facility] 00:00:00 [facility] Influenza Virus 2013-05-22 Completed [facility] Vaccine (3+ yrs) 00:00:00 [facility] Meningococcal 2013-05-22 Completed [facility] Polysaccharide 00:00:00 [facility] (groups A, C, Y and Branc h W-135) conjugate vaccine (MCV4P) TDAP 2013-05-22 Completed [facility] 00:00:00 [facility] Influenza Virus 2013-05-22 Completed [facility] Vaccine (3+ yrs) 00:00:00 [facility] Meningococcal 2013-05-22 Completed [facility] Polysaccharide 00:00:00 [facility] (groups A, C, Y and Branc h W-135) conjugate vaccine (MCV4P) TDAP 2013-05-22 Completed [facility] 00:00:00 [facility] Influenza Virus 2013-05-22 Completed [facility] Vaccine (3+ yrs) 00:00:00 [facility] Meningococcal 2013-05-22 Completed [facility] Polysaccharide 00:00:00 [place] [facility] (groups A, C, Y and Branc h W-135) conjugate vaccine (MCV4P) TDAP 2013-05-22 Completed [facility] 00:00:00 [facility] Influenza Virus 2013-05-22 Completed [facility] Vaccine (3+ yrs) 00:00:00 [facility] Meningococcal 2013-05-22 Completed [facility] Polysaccharide 00:00:00 [facility] (groups A, C, Y and Branc h W-135) conjugate vaccine (MCV4P) TDAP 2013-05-22 Completed [facility] 00:00:00 [facility] Influenza Virus 2013-05-22 Completed [facility] Vaccine (3+ yrs) 00:00:00 [facility] Meningococcal 2013-05-22 Completed [facility] Polysaccharide 00:00:00 [facility] (groups A, C, Y and Branc h W-135) conjugate vaccine (MCV4P) TDAP 2013-05-22 Completed [facility] 00:00:00 [facility] Influenza Virus 2013-05-22 Completed [facility] Vaccine (3+ yrs) 00:00:00 [facility] Meningococcal 2013-05-22 Completed [facility] Polysaccharide 00:00:00 [facility] (groups A, C, Y and Branc h W-135) conjugate vaccine (MCV4P) TDAP 2013-05-22 Completed [facility] 00:00:00 [facility] Influenza Virus 2013-05-22 Completed [facility] Vaccine (3+ yrs) 00:00:00 [facility] Meningococcal 2013-05-22 Completed [facility] Polysaccharide 00:00:00 [facility] (groups A, C, Y and Branc h W-135) conjugate vaccine (MCV4P) TDAP 2013-05-22 Completed [facility] 00:00:00 [facility] Influenza Virus 2013-05-22 Completed [facility] Vaccine (3+ yrs) 00:00:00 [facility] Meningococcal 2013-05-22 Completed [facility] Polysaccharide 00:00:00 [place] [facility] (groups A, C, Y and Branc h W-135) conjugate vaccine (MCV4P) TDAP 2013-05-22 Completed [facility] 00:00:00 [facility] Influenza Virus 2013-05-22 Completed [facility] Vaccine (3+ yrs) 00:00:00 [facility] Meningococcal 2013-05-22 Completed [facility] Polysaccharide 00:00:00 [place] [facility] (groups A, C, Y and Branc h W-135) conjugate vaccine (MCV4P) TDAP 2013-05-22 Completed [facility] 00:00:00 [facility] Influenza Virus 2013-05-22 Completed [facility] Vaccine (3+ yrs) 00:00:00 [facility] Meningococcal 2013-05-22 Completed [facility] Polysaccharide 00:00:00 [place] [facility] (groups A, C, Y and Branc h W-135) conjugate vaccine (MCV4P) TDAP 2013-05-22 Completed [facility] 00:00:00 [facility] Influenza Virus 2013-05-22 Completed [facility] Vaccine (3+ yrs) 00:00:00 [facility] Meningococcal 2013-05-22 Completed [facility] Polysaccharide 00:00:00 [place] [facility] (groups A, C, Y and Branc h W-135) conjugate vaccine (MCV4P) TDAP 2013-05-22 Completed [facility] 00:00:00 [facility] Influenza Virus 2013-05-22 Completed [facility] Vaccine (3+ yrs) 00:00:00 [facility] Meningococcal 2013-05-22 Completed [facility] Polysaccharide 00:00:00 [place] [facility] (groups A, C, Y and Branc h W-135) conjugate vaccine (MCV4P) TDAP 2013-05-22 Completed [facility] 00:00:00 [facility] Influenza Virus 2013-05-22 Completed [facility] Vaccine (3+ yrs) 00:00:00 [facility] Meningococcal 2013-05-22 Completed [facility] Polysaccharide 00:00:00 [place] [facility] (groups A, C, Y and Branc h W-135) conjugate vaccine (MCV4P) TDAP 2013-05-22 Completed [facility] 00:00:00 [facility] Influenza Virus 2013-05-22 Completed [facility] Vaccine (3+ yrs) 00:00:00 [facility] Meningococcal 2013-05-22 Completed [facility] Polysaccharide 00:00:00 [place] [facility] (groups A, C, Y and Branc h W-135) conjugate vaccine (MCV4P) TDAP 2013-05-22 Completed [facility] 00:00:00 [facility] Influenza Virus 2013-05-22 Completed [facility] Vaccine (3+ yrs) 00:00:00 [facility] Meningococcal 2013-05-22 Completed [facility] Polysaccharide 00:00:00 [place] [facility] (groups A, C, Y and Branc h W-135) conjugate vaccine (MCV4P) TDAP 2013-05-22 Completed [facility] 00:00:00 [facility] Influenza Virus 2013-05-22 Completed [facility] Vaccine (3+ yrs) 00:00:00 [facility] Meningococcal 2013-05-22 Completed [facility] Polysaccharide 00:00:00 [place] [facility] (groups A, C, Y and Branc h W-135) conjugate vaccine (MCV4P) TDAP 2013-05-22 Completed [facility] 00:00:00 [facility] Influenza Virus 2013-05-22 Completed [facility] Vaccine (3+ yrs) 00:00:00 [facility] Meningococcal 2013-05-22 Completed [facility] Polysaccharide 00:00:00 [place] [facility] (groups A, C, Y and Branc h W-135) conjugate vaccine (MCV4P) TDAP 2013-05-22 Completed [facility] 00:00:00 [facility] Influenza Virus 2013-05-22 Completed [facility] Vaccine (3+ yrs) 00:00:00 [facility] Meningococcal 2013-05-22 Completed [facility] Polysaccharide 00:00:00 [facility] (groups A, C, Y and Branc h W-135) conjugate vaccine (MCV4P) TDAP 2013-05-22 Completed [facility] 00:00:00 [facility] Influenza Virus 2013-05-22 Completed [facility] Vaccine (3+ yrs) 00:00:00 [facility] Meningococcal 2013-05-22 Completed [facility] Polysaccharide 00:00:00 [facility] (groups A, C, Y and Branc h W-135) conjugate vaccine (MCV4P) TDAP 2013-05-22 Completed [facility] 00:00:00 [facility] Influenza Virus 2013-05-22 Completed [facility] Vaccine (3+ yrs) 00:00:00 [facility] Meningococcal 2013-05-22 Completed [facility] Polysaccharide 00:00:00 [facility] (groups A, C, Y and Branc h W-135) conjugate vaccine (MCV4P) TDAP 2013-05-22 Completed [facility] 00:00:00 [facility] Influenza Virus 2013-05-22 Completed [facility] Vaccine (3+ yrs) 00:00:00 [facility] Meningococcal 2013-05-22 Completed [facility] Polysaccharide 00:00:00 [facility] (groups A, C, Y and Branc h W-135) conjugate vaccine (MCV4P) TDAP 2013-05-22 Completed [facility] 00:00:00 [facility] Influenza Virus 2013-05-22 Completed [facility] Vaccine (3+ yrs) 00:00:00 [facility] Meningococcal 2013-05-22 Completed [facility] Polysaccharide 00:00:00 [facility] (groups A, C, Y and Branc h W-135) conjugate vaccine (MCV4P) TDAP 2013-05-22 Completed [facility] 00:00:00 [facility] Influenza Virus 2013-05-22 Completed [facility] Vaccine (3+ yrs) 00:00:00 [facility] Meningococcal 2013-05-22 Completed [facility] Polysaccharide 00:00:00 [facility] (groups A, C, Y and Branc h W-135) conjugate vaccine (MCV4P) TDAP 2013-05-22 Completed [facility] 00:00:00 [facility] Influenza Virus 2013-05-22 Completed [facility] Vaccine (3+ yrs) 00:00:00 [facility] Meningococcal 2013-05-22 Completed [facility] Polysaccharide 00:00:00 [facility] (groups A, C, Y and Branc h W-135) conjugate vaccine (MCV4P) TDAP 2013-05-22 Completed [facility] 00:00:00 [facility] Influenza Virus 2013-05-22 Completed [facility] Vaccine (3+ yrs) 00:00:00 [facility] Meningococcal 2013-05-22 Completed [facility] Polysaccharide 00:00:00 [facility] (groups A, C, Y and Branc h W-135) conjugate vaccine (MCV4P) TDAP 2013-05-22 Completed [facility] 00:00:00 [facility] Influenza Virus 2013-05-22 Completed [facility] Vaccine (3+ yrs) 00:00:00 [facility] Meningococcal 2013-05-22 Completed [facility] Polysaccharide 00:00:00 [facility] (groups A, C, Y and Branc h W-135) conjugate vaccine (MCV4P) TDAP 2013-05-22 Completed [facility] 00:00:00 [facility] Influenza Virus 2013-05-22 Completed [facility] Vaccine (3+ yrs) 00:00:00 [facility] Meningococcal 2013-05-22 Completed [facility] Polysaccharide 00:00:00 [facility] (groups A, C, Y and Branc h W-135) conjugate vaccine (MCV4P) TDAP 2013-05-22 Completed [facility] 00:00:00 [facility] Influenza Virus 2013-05-22 Completed [facility] Vaccine (3+ yrs) 00:00:00 [facility] Meningococcal 2013-05-22 Completed [facility] Polysaccharide 00:00:00 [facility] (groups A, C, Y and Branc h W-135) conjugate vaccine (MCV4P) TDAP 2013-05-22 Completed [facility] 00:00:00 [facility] Influenza Virus 2013-05-22 Completed [facility] Vaccine (3+ yrs) 00:00:00 [facility] Meningococcal 2013-05-22 Completed [facility] Polysaccharide 00:00:00 [facility] (groups A, C, Y and Branc h W-135) conjugate vaccine (MCV4P) TDAP 2013-05-22 Completed [facility] 00:00:00 [facility] Influenza Virus 2013-05-22 Completed [facility] Vaccine (3+ yrs) 00:00:00 [facility] Meningococcal 2013-05-22 Completed [facility] Polysaccharide 00:00:00 [facility] (groups A, C, Y and Branc h W-135) conjugate vaccine (MCV4P) TDAP 2013-05-22 Completed [facility] 00:00:00 [facility] Influenza Virus 2013-05-22 Completed [facility] Vaccine (3+ yrs) 00:00:00 [facility] Meningococcal 2013-05-22 Completed [facility] Polysaccharide 00:00:00 [facility] (groups A, C, Y and Branc h W-135) conjugate vaccine (MCV4P) TDAP 2013-05-22 Completed [facility] 00:00:00 [facility] Influenza Virus 2013-05-22 Completed [facility] Vaccine (3+ yrs) 00:00:00 [facility] Meningococcal 2013-05-22 Completed [facility] Polysaccharide 00:00:00 [facility] (groups A, C, Y and Branc h W-135) conjugate vaccine (MCV4P) TDAP 2013-05-22 Completed [facility] 00:00:00 [facility] Influenza Virus 2013-05-22 Completed [facility] Vaccine (3+ yrs) 00:00:00 [facility] Meningococcal 2013-05-22 Completed [facility] Polysaccharide 00:00:00 [facility] (groups A, C, Y and Branc h W-135) conjugate vaccine (MCV4P) TDAP 2013-05-22 Completed [facility] 00:00:00 [facility] Influenza Virus 2013-05-22 Completed [facility] Vaccine (3+ yrs) 00:00:00 [facility] Meningococcal 2013-05-22 Completed [facility] Polysaccharide 00:00:00 [facility] (groups A, C, Y and Branc h W-135) conjugate vaccine (MCV4P) TDAP 2013-05-22 Completed [facility] 00:00:00 [facility] Influenza Virus 2013-05-22 Completed [facility] Vaccine (3+ yrs) 00:00:00 [facility] Meningococcal 2013-05-22 Completed [facility] Polysaccharide 00:00:00 [facility] (groups A, C, Y and Branc h W-135) conjugate vaccine (MCV4P) TDAP 2013-05-22 Completed [facility] 00:00:00 [facility] Influenza Virus 2013-05-22 Completed [facility] Vaccine (3+ yrs) 00:00:00 [facility] Meningococcal 2013-05-22 Completed [facility] Polysaccharide 00:00:00 [facility] (groups A, C, Y and Branc h W-135) conjugate vaccine (MCV4P) TDAP 2013-05-22 Completed [facility] 00:00:00 [facility] Influenza Virus 2013-05-22 Completed [facility] Vaccine (3+ yrs) 00:00:00 [facility] Meningococcal 2013-05-22 Completed [facility] Polysaccharide 00:00:00 [facility] (groups A, C, Y and Branc h W-135) conjugate vaccine (MCV4P) TDAP 2013-05-22 Completed [facility] 00:00:00 [facility] Influenza Virus 2013-05-22 Completed [facility] Vaccine (3+ yrs) 00:00:00 [facility] Meningococcal 2013-05-22 Completed [facility] Polysaccharide 00:00:00 [facility] (groups A, C, Y and Branc h W-135) conjugate vaccine (MCV4P) TDAP 2013-05-22 Completed [facility] 00:00:00 [facility] Influenza Virus 2013-05-22 Completed [facility] Vaccine (3+ yrs) 00:00:00 [facility] Meningococcal 2013-05-22 Completed [facility] Polysaccharide 00:00:00 [facility] (groups A, C, Y and Branc h W-135) conjugate vaccine (MCV4P) TDAP 2013-05-22 Completed [facility] 00:00:00 [facility] Influenza Virus 2013-05-22 Completed [facility] Vaccine (3+ yrs) 00:00:00 [facility] Meningococcal 2013-05-22 Completed [facility] Polysaccharide 00:00:00 [facility] (groups A, C, Y and Branc h W-135) conjugate vaccine (MCV4P) TDAP 2013-05-22 Completed [facility] 00:00:00 [facility] Influenza Virus 2013-05-22 Completed [facility] Vaccine (3+ yrs) 00:00:00 [facility] Meningococcal 2013-05-22 Completed [facility] Polysaccharide 00:00:00 [facility] (groups A, C, Y and Branc h W-135) conjugate vaccine (MCV4P) TDAP 2013-05-22 Completed [facility] 00:00:00 [facility] Influenza Virus 2013-05-22 Completed [facility] Vaccine (3+ yrs) 00:00:00 [facility] Meningococcal 2013-05-22 Completed [facility] Polysaccharide 00:00:00 [facility] (groups A, C, Y and Branc h W-135) conjugate vaccine (MCV4P) TDAP 2013-05-22 Completed [facility] 00:00:00 [facility] Influenza Virus 2013-05-22 Completed [facility] Vaccine (3+ yrs) 00:00:00 [facility] Meningococcal 2013-05-22 Completed [facility] Polysaccharide 00:00:00 [facility] (groups A, C, Y and Branc h W-135) conjugate vaccine (MCV4P) TDAP 2013-05-22 Completed [facility] 00:00:00 [facility] Influenza Virus 2013-05-22 Completed [facility] Vaccine (3+ yrs) 00:00:00 [facility] Meningococcal 2013-05-22 Completed [facility] Polysaccharide 00:00:00 [facility] (groups A, C, Y and Branc h W-135) conjugate vaccine (MCV4P) TDAP 2013-05-22 Completed [facility] 00:00:00 [facility] Influenza Virus 2013-05-22 Completed [facility] Vaccine (3+ yrs) 00:00:00 [facility] Meningococcal 2013-05-22 Completed [facility] Polysaccharide 00:00:00 [facility] (groups A, C, Y and Branc h W-135) conjugate vaccine (MCV4P) TDAP 2013-05-22 Completed [facility] 00:00:00 [facility] Influenza Virus 2013-05-22 Completed [facility] Vaccine (3+ yrs) 00:00:00 [facility] Meningococcal 2013-05-22 Completed [facility] Polysaccharide 00:00:00 [facility] (groups A, C, Y and Branc h W-135) conjugate vaccine (MCV4P) TDAP 2013-05-22 Completed [facility] 00:00:00 [facility] Influenza Virus 2013-05-22 Completed [facility] Vaccine (3+ yrs) 00:00:00 [facility] Meningococcal 2013-05-22 Completed [facility] Polysaccharide 00:00:00 [facility] (groups A, C, Y and Branc h W-135) conjugate vaccine (MCV4P) TDAP 2013-05-22 Completed [facility] 00:00:00 [facility] Influenza Virus 2013-05-22 Completed [facility] Vaccine (3+ yrs) 00:00:00 [facility] Meningococcal 2013-05-22 Completed [facility] Polysaccharide 00:00:00 [facility] (groups A, C, Y and Branc h W-135) conjugate vaccine (MCV4P) TDAP 2013-05-22 Completed [facility] 00:00:00 [facility] Influenza Virus 2013-05-22 Completed [facility] Vaccine (3+ yrs) 00:00:00 [facility] Meningococcal 2013-05-22 Completed [facility] Polysaccharide 00:00:00 [facility] (groups A, C, Y and Branc h W-135) conjugate vaccine (MCV4P) TDAP 2013-05-22 Completed [facility] 00:00:00 [facility] Influenza Virus 2013-05-22 Completed [facility] Vaccine (3+ yrs) 00:00:00 [facility] Meningococcal 2013-05-22 Completed [facility] Polysaccharide 00:00:00 [facility] (groups A, C, Y and Branc h W-135) conjugate vaccine (MCV4P) TDAP 2013-05-22 Completed [facility] 00:00:00 [facility] Influenza Virus 2013-05-22 Completed [facility] Vaccine (3+ yrs) 00:00:00 [facility] Meningococcal 2013-05-22 Completed [facility] Polysaccharide 00:00:00 [facility] (groups A, C, Y and Branc h W-135) conjugate vaccine (MCV4P) TDAP 2013-05-22 Completed [facility] 00:00:00 [facility] Influenza Virus 2013-05-22 Completed [facility] Vaccine (3+ yrs) 00:00:00 [facility] Meningococcal 2013-05-22 Completed [facility] Polysaccharide 00:00:00 [facility] (groups A, C, Y and Branc h W-135) conjugate vaccine (MCV4P) TDAP 2013-05-22 Completed [facility] 00:00:00 [facility] Influenza Virus 2013-05-22 Completed [facility] Vaccine (3+ yrs) 00:00:00 [facility] Meningococcal 2013-05-22 Completed [facility] Polysaccharide 00:00:00 [facility] (groups A, C, Y and Branc h W-135) conjugate vaccine (MCV4P) TDAP 2013-05-22 Completed [facility] 00:00:00 [facility] Influenza Virus 2013-05-22 Completed [facility] Vaccine (3+ yrs) 00:00:00 [facility] Meningococcal 2013-05-22 Completed [facility] Polysaccharide 00:00:00 [facility] (groups A, C, Y and Branc h W-135) conjugate vaccine (MCV4P) TDAP 2013-05-22 Completed [facility] 00:00:00 [facility] Influenza Virus 2013-05-22 Completed [facility] Vaccine (3+ yrs) 00:00:00 [facility] Meningococcal 2013-05-22 Completed [facility] Polysaccharide 00:00:00 [facility] (groups A, C, Y and Branc h W-135) conjugate vaccine (MCV4P) TDAP 2013-05-22 Completed [facility] 00:00:00 [facility] Influenza Virus 2013-05-22 Completed [facility] Vaccine (3+ yrs) 00:00:00 [facility] Meningococcal 2013-05-22 Completed [facility] Polysaccharide 00:00:00 [facility] (groups A, C, Y and Branc h W-135) conjugate vaccine (MCV4P) TDAP 2013-05-22 Completed [facility] 00:00:00 [facility] Influenza Virus 2013-05-22 Completed [facility] Vaccine (3+ yrs) 00:00:00 [facility] Meningococcal 2013-05-22 Completed [facility] Polysaccharide 00:00:00 [facility] (groups A, C, Y and Branc h W-135) conjugate vaccine (MCV4P) TDAP 2013-05-22 Completed [facility] 00:00:00 [facility] Influenza Virus 2013-05-22 Completed [facility] Vaccine (3+ yrs) 00:00:00 [facility] Meningococcal 2013-05-22 Completed [facility] Polysaccharide 00:00:00 [facility] (groups A, C, Y and Branc h W-135) conjugate vaccine (MCV4P) TDAP 2013-05-22 Completed [facility] 00:00:00 [facility] Influenza Virus 2013-05-22 Completed [facility] Vaccine (3+ yrs) 00:00:00 [facility] Meningococcal 2013-05-22 Completed [facility] Polysaccharide 00:00:00 [facility] (groups A, C, Y and Branc h W-135) conjugate vaccine (MCV4P) TDAP 2013-05-22 Completed [facility] 00:00:00 [facility] Influenza Virus 2013-05-22 Completed [facility] Vaccine (3+ yrs) 00:00:00 [facility] Meningococcal 2013-05-22 Completed [facility] Polysaccharide 00:00:00 [facility] (groups A, C, Y and Branc h W-135) conjugate vaccine (MCV4P) TDAP 2013-05-22 Completed [facility] 00:00:00 [facility] Influenza Virus 2013-05-22 Completed [facility] Vaccine (3+ yrs) 00:00:00 [facility] Meningococcal 2013-05-22 Completed [facility] Polysaccharide 00:00:00 [facility] (groups A, C, Y and Branc h W-135) conjugate vaccine (MCV4P) TDAP 2013-05-22 Completed [facility] 00:00:00 [facility] Influenza Virus 2013-05-22 Completed [facility] Vaccine (3+ yrs) 00:00:00 [facility] Meningococcal 2013-05-22 Completed [facility] Polysaccharide 00:00:00 [facility] (groups A, C, Y and Branc h W-135) conjugate vaccine (MCV4P) TDAP 2013-05-22 Completed [facility] 00:00:00 [facility] Influenza Virus 2013-05-22 Completed [facility] Vaccine (3+ yrs) 00:00:00 [facility] Meningococcal 2013-05-22 Completed [facility] Polysaccharide 00:00:00 [facility] (groups A, C, Y and Branc h W-135) conjugate vaccine (MCV4P) TDAP 2013-05-22 Completed [facility] 00:00:00 [facility] Influenza Virus 2013-05-22 Completed [facility] Vaccine (3+ yrs) 00:00:00 [facility] Meningococcal 2013-05-22 Completed [facility] Polysaccharide 00:00:00 [facility] (groups A, C, Y and Branc h W-135) conjugate vaccine (MCV4P) TDAP 2013-05-22 Completed [facility] 00:00:00 [facility] Influenza Virus 2013-05-22 Completed [facility] Vaccine (3+ yrs) 00:00:00 [facility] Meningococcal 2013-05-22 Completed [facility] Polysaccharide 00:00:00 [facility] (groups A, C, Y and Branc h W-135) conjugate vaccine (MCV4P) TDAP 2013-05-22 Completed [facility] 00:00:00 [facility] Influenza Virus 2013-05-22 Completed [facility] Vaccine (3+ yrs) 00:00:00 [facility] Meningococcal 2013-05-22 Completed [facility] Polysaccharide 00:00:00 [facility] (groups A, C, Y and Branc h W-135) conjugate vaccine (MCV4P) TDAP 2013-05-22 Completed [facility] 00:00:00 [facility] Influenza Virus 2013-05-22 Completed [facility] Vaccine (3+ yrs) 00:00:00 [facility] Meningococcal 2013-05-22 Completed [facility] Polysaccharide 00:00:00 [facility] (groups A, C, Y and Branc h W-135) conjugate vaccine (MCV4P) TDAP 2013-05-22 Completed [facility] 00:00:00 [facility] Influenza Virus 2013-05-22 Completed [facility] Vaccine (3+ yrs) 00:00:00 [facility] Meningococcal 2013-05-22 Completed [facility] Polysaccharide 00:00:00 [facility] (groups A, C, Y and Branc h W-135) conjugate vaccine (MCV4P) TDAP 2013-05-22 Completed [facility] 00:00:00 [facility] Influenza Virus 2013-05-22 Completed [facility] Vaccine (3+ yrs) 00:00:00 [facility] Meningococcal 2013-05-22 Completed [facility] Polysaccharide 00:00:00 [facility] (groups A, C, Y and Branc h W-135) conjugate vaccine (MCV4P) TDAP 2013-05-22 Completed [facility] 00:00:00 [facility] Influenza Virus 2013-05-22 Completed [facility] Vaccine (3+ yrs) 00:00:00 [facility] Meningococcal 2013-05-22 Completed [facility] Polysaccharide 00:00:00 [facility] (groups A, C, Y and Branc h W-135) conjugate vaccine (MCV4P) TDAP 2013-05-22 Completed [facility] 00:00:00 [facility] Influenza Virus 2013-05-22 Completed [facility] Vaccine (3+ yrs) 00:00:00 [facility] Meningococcal 2013-05-22 Completed [facility] Polysaccharide 00:00:00 [facility] (groups A, C, Y and Branc h W-135) conjugate vaccine (MCV4P) TDAP 2013-05-22 Completed [facility] 00:00:00 [facility] Influenza Virus 2013-05-22 Completed [facility] Vaccine (3+ yrs) 00:00:00 [facility] Meningococcal 2013-05-22 Completed [facility] Polysaccharide 00:00:00 [facility] (groups A, C, Y and Branc h W-135) conjugate vaccine (MCV4P) TDAP 2013-05-22 Completed [facility] 00:00:00 [facility] Influenza Virus 2013-05-22 Completed [facility] Vaccine (3+ yrs) 00:00:00 [facility] Meningococcal 2013-05-22 Completed [facility] Polysaccharide 00:00:00 [facility] (groups A, C, Y and Branc h W-135) conjugate vaccine (MCV4P) TDAP 2013-05-22 Completed [facility] 00:00:00 [facility] Influenza Virus 2013-05-22 Completed [facility] Vaccine (3+ yrs) 00:00:00 [facility] Meningococcal 2013-05-22 Completed [facility] Polysaccharide 00:00:00 [place] [facility] (groups A, C, Y and Branc h W-135) conjugate vaccine (MCV4P) TDAP 2013-05-22 Completed [facility] 00:00:00 [facility] Influenza Virus 2013-05-22 Completed [facility] Vaccine (3+ yrs) 00:00:00 [facility] Meningococcal 2013-05-22 Completed [facility] Polysaccharide 00:00:00 [facility] (groups A, C, Y and Branc h W-135) conjugate vaccine (MCV4P) TDAP 2013-05-22 Completed [facility] 00:00:00 [facility] Influenza Virus 2013-05-22 Completed [facility] Vaccine (3+ yrs) 00:00:00 [facility] Meningococcal 2013-05-22 Completed [facility] Polysaccharide 00:00:00 [place] [facility] (groups A, C, Y and Branc h W-135) conjugate vaccine (MCV4P) TDAP 2013-05-22 Completed [facility] 00:00:00 [facility] Influenza Virus 2012-06-13 Completed [facility] Vaccine 00:00:00 [facility] Influenza Virus 2012-06-13 Completed [facility] Vaccine 00:00:00 [facility] Influenza Virus 2012-06-13 Completed [facility] Vaccine 00:00:00 [facility] Influenza Virus 2012-06-13 Completed [facility] Vaccine 00:00:00 [facility] Influenza Virus 2012-06-13 Completed [facility] Vaccine 00:00:00 [facility] Influenza Virus 2012-06-13 Completed [facility] Vaccine 00:00:00 [facility] Influenza Virus 2012-06-13 Completed [facility] Vaccine 00:00:00 [facility] Influenza Virus 2012-06-13 Completed [facility] Vaccine 00:00:00 [facility] Influenza Virus 2012-06-13 Completed [facility] Vaccine 00:00:00 [facility] Influenza Virus 2012-06-13 Completed [facility] Vaccine 00:00:00 [facility] Influenza Virus 2012-06-13 Completed [facility] Vaccine 00:00:00 [facility] Influenza Virus 2012-06-13 Completed [facility] Vaccine 00:00:00 [facility] Influenza Virus 2012-06-13 Completed [facility] Vaccine 00:00:00 [facility] Influenza Virus 2012-06-13 Completed [facility] Vaccine 00:00:00 [facility] Influenza Virus 2012-06-13 Completed [facility] Vaccine 00:00:00 [facility] Influenza Virus 2012-06-13 Completed [facility] Vaccine 00:00:00 [facility] Influenza Virus 2012-06-13 Completed [facility] Vaccine 00:00:00 [facility] Influenza Virus 2012-06-13 Completed [facility] Vaccine 00:00:00 [facility] Influenza Virus 2012-06-13 Completed [facility] Vaccine 00:00:00 [facility] Influenza Virus 2012-06-13 Completed [facility]00 [facility] Influenza Virus 2012-06-13 Completed [facility] 00:00:00 [facility] Influenza Virus 2012-06-13 Completed [facility] 00[facility]00:00 [facility] Influenza Virus 2012-06-13 Completed [facility] 00:00:00 [facility] Influenza Virus 2012-06-13 Completed [facility] 00:00:00 [facility] Influenza Virus 2012-06-13 Completed [facility] 00:00:00 [facility] Influenza Virus 2012-06-13 Completed [facility] 00:00:00 [facility] Influenza Virus 2012-06-13 Completed [facility] 00:00:00 [facility] Influenza Virus 2012-06-13 Completed [facility] 00:00:00 [facility] Influenza Virus 2012-06-13 Completed [facility] 00:00:00 [facility] Influenza Virus 2012-06-13 Completed [facility] 00:00:00 [facility] Influenza Virus 2012-06-13 Completed [facility] 00:00:00 [facility] Influenza Virus 2012-06-13 Completed [facility] 00:00:00 [facility] Influenza Virus 2012-06-13 Completed [facility] 00:00:00 [facility] Influenza Virus 2012-06-13 Completed [facility] 00:00:00 [facility] Influenza Virus 2012-06-13 Completed [facility] 00:00:00 [facility] Influenza Virus 2012-06-13 Completed [facility] 00:00:00 [facility] Influenza Virus 2012-06-13 Completed [facility] 00:00:00 [facility] Influenza Virus 2012-06-13 Completed [facility] 00:00:00 [facility] Influenza Virus 2012-06-13 Completed [facility] 00:00:00 [facility] Influenza Virus 2012-06-13 Completed [facility] 00:00:00 [facility] Influenza Virus 2012-06-13 Completed [facility] 00:00:00 [facility] Influenza Virus 2012-06-13 Completed [facility] 00:00:00 [facility] Influenza Virus 2012-06-13 Completed [facility] 00:00:00 [facility] Influenza Virus 2012-06-13 Completed [facility] 00:00:00 [facility] Influenza Virus 2012-06-13 Completed [facility] 00:00:00 [facility] Influenza Virus 2012-06-13 Completed [facility] 00:00:00 [facility] Influenza Virus 2012-06-13 Completed [facility] 00:00:00 [facility] Influenza Virus 2012-06-13 Completed [facility] 00:00:00 [facility] Influenza Virus 2012-06-13 Completed [facility] 00:00:00 [facility] Influenza Virus 2012-06-13 Completed [facility] 00:00:00 [facility] Influenza Virus 2012-06-13 Completed [facility] 00:00:00 [facility] Influenza Virus 2012-06-13 Completed [facility] 00:00:00 [facility] Influenza Virus 2012-06-13 Completed [facility] 00:00:00 [facility] Influenza Virus 2012-06-13 Completed [facility]ine 00:00:00 [facility] Influenza Virus 2012-06-13 Completed [facility] 00:00:00 [facility] Influenza Virus 2012-06-13 Completed [facility] 00:00:00 [facility] Influenza Virus 2012-06-13 Completed [facility] 00:00:00 [facility] Influenza Virus 2012-06-13 Completed [facility] 00:00:00 [facility] Influenza Virus 2012-06-13 Completed [facility] 00:00:00 [facility] Influenza Virus 2012-06-13 Completed [facility] 00:00:00 [facility] Influenza Virus 2012-06-13 Completed [facility] 00:00:00 [facility] Influenza Virus 2012-06-13 Completed [facility] 00:00:00 [facility] Influenza Virus 2012-06-13 Completed [facility] 00:00:00 [facility] Influenza Virus 2012-06-13 Completed [facility] 00:00:00 [facility] Influenza Virus 2012-06-13 Completed [facility] 00:00:00 [facility] Influenza Virus 2012-06-13 Completed [facility] 00:00:00 [facility] Influenza Virus 2012-06-13 Completed [facility] 00:00:00 [facility] Influenza Virus 2012-06-13 Completed [facility] 00:00:00 [facility] Influenza Virus 2012-06-13 Completed [facility] 00:00:00 [facility] Influenza Virus 2012-06-13 Completed [facility] 00:00:00 [facility] Influenza Virus 2012-06-13 Completed [facility] 00:00:00 [facility] Influenza Virus 2012-06-13 Completed [facility] 00:00:00 [facility] Influenza Virus 2012-06-13 Completed [facility] 00:00:00 [facility] Influenza Virus 2012-06-13 Completed [facility] 00:00:00 [facility] Influenza Virus 2012-06-13 Completed [facility] 00:00:00 [facility] Influenza Virus 2012-06-13 Completed [facility] 00:00:00 [facility] Influenza Virus 2012-06-13 Completed [facility] 00:00:00 [facility] Influenza Virus 2012-06-13 Completed [facility] 00:00:00 [facility] Influenza Virus 2012-06-13 Completed [facility] 00:00:00 [facility] Influenza Virus 2012-06-13 Completed [facility] 00:00:00 [facility] Influenza Virus 2012-06-13 Completed [facility] 00:00:00 [facility] Influenza Virus 2012-06-13 Completed [facility] 00:00:00 [facility] Influenza Virus 2012-06-13 Completed [facility] 00:00:00 [facility] Influenza Virus 2012-06-13 Completed [facility] 00:00:00 [facility] Influenza Virus 2012-06-13 Completed [facility] 00:00:00 [facility] Influenza Virus 2012-06-13 Completed [facility] 00:00:00 [facility] Influenza Virus 2012-06-13 Completed [facility] 00:00:00 [facility] Influenza Virus 2012-06-13 Completed [facility] 00:00:00 [facility] Influenza Virus 2012-06-13 Completed [facility] 00:00:00 [facility] Influenza Virus 2012-06-13 Completed [facility] 00:00:00 [facility] Influenza Virus 2012-06-13 Completed [facility] 00:00:00 [facility] Influenza Virus 2012-06-13 Completed [facility]ine 00:00:00 [facility] Influenza Virus 2012-06-13 Completed [facility]ine 00:00:00 [facility] Influenza Virus 2012-06-13 Completed [facility] 00:00:00 [facility] Influenza Virus 2012-06-13 Completed [facility] 00:00:00 [facility] Influenza Virus 2012-06-13 Completed [facility] 00:00:00 [facility] Influenza Virus 2012-06-13 Completed [facility] 00:00:00 [facility] Influenza Virus 2012-06-13 Completed [facility] 00:00:00 [facility] Influenza Virus 2012-06-13 Completed [facility] 00:00:00 [facility] Influenza Virus 2012-06-13 Completed [facility] 00:00:00 [facility] Influenza Virus 2012-06-13 Completed [facility] 00:00:00 [facility] Influenza Virus 2012-06-13 Completed [facility] 00:00:00 [facility] Influenza Virus 2012-06-13 Completed [facility] 00:00:00 [facility] Influenza Virus 2012-06-13 Completed [facility] 00:00:00 [facility] Influenza Virus 2012-06-13 Completed [facility] 00:00:00 [facility] Influenza Virus 2011-05-18 Completed [facility] 00:00:00 [facility] Influenza Virus 2011-05-18 Completed [facility] 00:00:00 [facility] Influenza Virus 2011-05-18 Completed [facility] 00:00:00 [facility] Influenza Virus 2011-05-18 Completed [facility] 00:00:00 [facility] Influenza Virus 2011-05-18 Completed [facility]ine 00:00:00 [facility] Influenza Virus 2011-05-18 Completed [facility] 00:00:00 [facility] Influenza Virus 2011-05-18 Completed [facility] 00:00:00 [facility] Influenza Virus 2011-05-18 Completed [facility]ine 00:00:00 [facility] Influenza Virus 2011-05-18 Completed [facility]ine 00:00:00 [facility] Influenza Virus 2011-05-18 Completed [facility] 00:00:00 [facility] Influenza Virus 2011-05-18 Completed [facility] 00:00:00 [facility] Influenza Virus 2011-05-18 Completed [facility] 00:00:00 [facility] Influenza Virus 2011-05-18 Completed [facility] 00:00:00 [facility] Influenza Virus 2011-05-18 Completed [facility]ine 00:00:00 [facility] Influenza Virus 2011-05-18 Completed [facility] 00:00:00 [facility] Influenza Virus 2011-05-18 Completed [facility] 00:00:00 [facility] Influenza Virus 2011-05-18 Completed [facility]ine 00:00:00 [facility] Influenza Virus 2011-05-18 Completed [facility] 00:00:00 [facility] Influenza Virus 2011-05-18 Completed [facility]ine 00:00:00 [facility] Influenza Virus 2011-05-18 Completed [facility] 00:00:00 [facility] Influenza Virus 2011-05-18 Completed [facility] 00:00:00 [facility] Influenza Virus 2011-05-18 Completed [facility]ine 00:00:00 [facility] Influenza Virus 2011-05-18 Completed [facility] Vaccine 00:00:00 [facility] Influenza Virus 2011-05-18 Completed [facility] 00:00:00 [facility] Influenza Virus 2011-05-18 Completed [facility]ine 00:00:00 [facility] Influenza Virus 2011-05-18 Completed [facility] 00:00:00 [facility] Influenza Virus 2011-05-18 Completed [facility]ine 00:00:00 [facility] Influenza Virus 2011-05-18 Completed [facility] 00:00:00 [facility] Influenza Virus 2011-05-18 Completed [facility] 00:00:00 [facility] Influenza Virus 2011-05-18 Completed [facility] 00:00:00 [facility] Influenza Virus 2011-05-18 Completed [facility]ine 00:00:00 [facility] Influenza Virus 2011-05-18 Completed [facility] 00:00:00 [facility] Influenza Virus 2011-05-18 Completed [facility] 00:00:00 [facility] Influenza Virus 2011-05-18 Completed [facility] 00:00:00 [facility] Influenza Virus 2011-05-18 Completed [facility] Vaccine 00:00:00 [facility] Influenza Virus 2011-05-18 Completed [facility] 00:00:00 [facility] Influenza Virus 2011-05-18 Completed [facility] 00:00:00 [facility] Influenza Virus 2011-05-18 Completed [facility] 00:00:00 [facility] Influenza Virus 2011-05-18 Completed [facility] 00:00:00 [facility] Influenza Virus 2011-05-18 Completed [facility] 00:00:00 [facility] Influenza Virus 2011-05-18 Completed [facility]ine 00:00:00 [facility] Influenza Virus 2011-05-18 Completed [facility] 00[facility]00:00 [facility] Influenza Virus 2011-05-18 Completed [facility] Vaccine 00:00:00 [facility] Influenza Virus 2011-05-18 Completed [facility]ine 00:00:00 [facility] Influenza Virus 2011-05-18 Completed [facility]ine 00:00:00 [facility] Influenza Virus 2011-05-18 Completed [facility]ine 00:00:00 [facility] Influenza Virus 2011-05-18 Completed [facility] 00:00:00 [facility] Influenza Virus 2011-05-18 Completed [facility]ine 00:00:00 [facility] Influenza Virus 2011-05-18 Completed [facility]ine 00:00:00 [facility] Influenza Virus 2011-05-18 Completed [facility] 00:00:00 [facility] Influenza Virus 2011-05-18 Completed [facility] 00:00:00 [facility] Influenza Virus 2011-05-18 Completed [facility] 00:00:00 [facility] Influenza Virus 2011-05-18 Completed [facility] 00:00:00 [facility] Influenza Virus 2011-05-18 Completed [facility] 00:00:00 [facility] Influenza Virus 2011-05-18 Completed [facility] 00:00:00 [facility] Influenza Virus 2011-05-18 Completed [facility]ine 00:00:00 [facility] Influenza Virus 2011-05-18 Completed [facility] 00:00:00 [facility] Influenza Virus 2011-05-18 Completed [facility] 00:00:00 [facility] Influenza Virus 2011-05-18 Completed [facility] 00:00:00 [facility] Influenza Virus 2011-05-18 Completed [facility]ine 00:00:00 [facility] Influenza Virus 2011-05-18 Completed [facility] Vaccine 00:00:00 [facility] Influenza Virus 2011-05-18 Completed [facility]ine 00:00:00 [facility] Influenza Virus 2011-05-18 Completed [facility] 00:00:00 [facility] Influenza Virus 2011-05-18 Completed [facility]ine 00:00:00 [facility] Influenza Virus 2011-05-18 Completed [facility]ine 00:00:00 [facility] Influenza Virus 2011-05-18 Completed [facility] Vaccine 00:00:00 [facility] Influenza Virus 2011-05-18 Completed [facility]ine 00:00:00 [facility] Influenza Virus 2011-05-18 Completed [facility]ine 00:00:00 [facility] Influenza Virus 2011-05-18 Completed [facility] 00:00:00 [facility] Influenza Virus 2011-05-18 Completed [facility]ine 00:00:00 [facility] Influenza Virus 2011-05-18 Completed [facility] Vaccine 00:00:00 [facility] Influenza Virus 2011-05-18 Completed [facility]ine 00:00:00 [facility] Influenza Virus 2011-05-18 Completed [facility] Vaccine 00:00:00 [facility] Influenza Virus 2011-05-18 Completed [facility] Vaccine 00:00:00 [facility] Influenza Virus 2011-05-18 Completed [facility]ine 00:00:00 [facility] Influenza Virus 2011-05-18 Completed [facility]ine 00:00:00 [facility] Influenza Virus 2011-05-18 Completed [facility]ine 00:00:00 [facility] Influenza Virus 2011-05-18 Completed [facility] Vaccine 00:00:00 [facility] Influenza Virus 2011-05-18 Completed [facility] Vaccine 00:00:00 [facility] Influenza Virus 2011-05-18 Completed [facility]ine 00:00:00 [facility] Influenza Virus 2011-05-18 Completed [facility]ine 00:00:00 [facility] Influenza Virus 2011-05-18 Completed [facility]ine 00:00:00 [facility] Influenza Virus 2011-05-18 Completed [facility] Vaccine 00:00:00 [facility] Influenza Virus 2011-05-18 Completed [facility] Vaccine 00:00:00 [facility] Influenza Virus 2011-05-18 Completed [facility] Vaccine 00:00:00 [facility] Influenza Virus 2011-05-18 Completed [facility]ine 00:00:00 [facility] Influenza Virus 2011-05-18 Completed [facility] Vaccine 00:00:00 [facility] Influenza Virus 2011-05-18 Completed [facility] Vaccine 00:00:00 [facility] Influenza Virus 2011-05-18 Completed [facility]ine 00:00:00 [facility] Influenza Virus 2011-05-18 Completed [facility]ine 00:00:00 [facility] Influenza Virus 2011-05-18 Completed [facility] Vaccine 00:00:00 [facility] Influenza Virus 2011-05-18 Completed [facility]ine 00:00:00 [facility] Influenza Virus 2011-05-18 Completed [facility]ine 00:00:00 [facility] Influenza Virus 2011-05-18 Completed [facility] 00:00:00 [facility] Influenza Virus 2011-05-18 Completed [facility]ine 00:00:00 [facility] Influenza Virus 2011-05-18 Completed [facility]ine 00:00:00 [facility] Influenza Virus 2011-05-18 Completed [facility]ine 00:00:00 [facility] Influenza Virus 2011-05-18 Completed [facility] 00:00:00 [facility] Influenza Virus 2011-05-18 Completed [facility]ine 00:00:00 [facility] Influenza Virus 2011-05-18 Completed [facility] Vaccine 00:00:00 [facility] Influenza Virus 2011-05-18 Completed [facility] Vaccine 00:00:00 [facility] Influenza Virus 2011-05-18 Completed [facility] 00:00:00 [facility] Influenza Virus 2011-05-18 Completed [facility]ine 00:00:00 [facility] Influenza Virus 2011-05-18 Completed [facility] 00:00:00 [facility] Influenza Virus 2011-05-18 Completed [facility]ine 00:00:00 [facility] Influenza Virus 2010-05-26 Completed [facility] 00:00:00 [facility] Influenza Virus 2010-05-26 Completed [facility] 00:00:00 [facility] Influenza Virus 2010-05-26 Completed [facility] 00:00:00 [facility] Influenza Virus 2010-05-26 Completed [facility] 00:00:00 [facility] Influenza Virus 2010-05-26 Completed [facility] 00:00:00 [facility] Influenza Virus 2010-05-26 Completed [facility]ine 00:00:00 [facility] Influenza Virus 2010-05-26 Completed [facility] 00:00:00 [facility] Influenza Virus 2010-05-26 Completed [facility] 00:00:00 [facility] Influenza Virus 2010-05-26 Completed [facility] 00:00:00 [facility] Influenza Virus 2010-05-26 Completed [facility] 00:00:00 [facility] Influenza Virus 2010-05-26 Completed [facility] 00:00:00 [facility] Influenza Virus 2010-05-26 Completed [facility] 00:00:00 [facility] Influenza Virus 2010-05-26 Completed [facility] 00:00:00 [facility] Influenza Virus 2010-05-26 [facility]pleted [facility]00 [facility] Influenza Virus 2010-05-26 Completed [facility] 00:00:00 [facility] Influenza Virus 2010-05-26 Completed [facility] 00[facility]00:00 [facility] Influenza Virus 2010-05-26 Completed [facility] 00:00:00 [facility] Influenza Virus 2010-05-26 Completed [facility] 00[facility]00:00 [facility] Influenza Virus 2010-05-26 Completed [facility] 00:00:00 [facility] Influenza Virus 2010-05-26 Completed [facility] 00:00:00 [facility] Influenza Virus 2010-05-26 Completed [facility] 00:00:00 [facility] Influenza Virus 2010-05-26 Completed [facility] 00:00:00 [facility] Influenza Virus 2010-05-26 Completed [facility] 00:00:00 [facility] Influenza Virus 2010-05-26 Completed [facility] 00:00:00 [facility] Influenza Virus 2010-05-26 Completed [facility] 00:00:00 [facility] Influenza Virus 2010-05-26 Completed [facility] 00:00:00 [facility] Influenza Virus 2010-05-26 Completed [facility] 00:00:00 [facility] Influenza Virus 2010-05-26 Completed [facility] 00:00:00 [facility] Influenza Virus 2010-05-26 Completed [facility] 00:00:00 [facility] Influenza Virus 2010-05-26 Completed [facility] 00:00:00 [facility] Influenza Virus 2010-05-26 Completed [facility] 00:00:00 [facility] Influenza Virus 2010-05-26 Completed [facility] 00:00:00 [facility] Influenza Virus 2010-05-26 Completed [facility] 00:00:00 [facility] Influenza Virus 2010-05-26 Completed [facility] 00:00:00 [facility] Influenza Virus 2010-05-26 Completed [facility] 00:00:00 [facility] Influenza Virus 2010-05-26 Completed [facility] 00:00:00 [facility] Influenza Virus 2010-05-26 Completed [facility] 00:00:00 [facility] Influenza Virus 2010-05-26 Completed [facility] 00:00:00 [facility] Influenza Virus 2010-05-26 Completed [facility] 00:00:00 [facility] Influenza Virus 2010-05-26 Completed [facility] 00:00:00 [facility] Influenza Virus 2010-05-26 Completed [facility] 00:00:00 [facility] Influenza Virus 2010-05-26 Completed [facility] 00:00:00 [facility] Influenza Virus 2010-05-26 Completed [facility] 00:00:00 [facility] Influenza Virus 2010-05-26 Completed [facility] 00:00:00 [facility] Influenza Virus 2010-05-26 Completed [facility] 00:00:00 [facility] Influenza Virus 2010-05-26 Completed [facility] Vaccine 00:00:00 [facility] Influenza Virus 2010-05-26 Completed [facility] 00:00:00 [facility] Influenza Virus 2010-05-26 Completed [facility] 00:00:00 [facility] Influenza Virus 2010-05-26 Completed [facility] 00:00:00 [facility] Influenza Virus 2010-05-26 Completed [facility] 00:00:00 [facility] Influenza Virus 2010-05-26 Completed [facility] 00:00:00 [facility] Influenza Virus 2010-05-26 Completed [facility] 00:00:00 [facility] Influenza Virus 2010-05-26 Completed [facility] 00:00:00 [facility] Influenza Virus 2010-05-26 Completed [facility] 00:00:00 [facility] Influenza Virus 2010-05-26 Completed [facility] 00:00:00 [facility] Influenza Virus 2010-05-26 Completed [facility] 00[facility]00:00 [facility] Influenza Virus 2010-05-26 Completed [facility] 00:00:00 [facility] Influenza Virus 2010-05-26 Completed [facility] 00[facility]00:00 [facility] Influenza Virus 2010-05-26 Completed [facility] 00:00:00 [facility] Influenza Virus 2010-05-26 Completed [facility] 00:00:00 [facility] Influenza Virus 2010-05-26 Completed [facility] 00:00:00 [facility] Influenza Virus 2010-05-26 Completed [facility] 00[facility]00:00 [facility] Influenza Virus 2010-05-26 Completed [facility] 00:00:00 [facility] Influenza Virus 2010-05-26 Completed [facility] 00:00:00 [facility] Influenza Virus 2010-05-26 Completed [facility] 00[facility]00:00 [facility] Influenza Virus 2010-05-26 Completed [facility] 00:00:00 [facility] Influenza Virus 2010-05-26 Completed [facility] 00[facility]00:00 [facility] Influenza Virus 2010-05-26 Completed [facility] 00:00:00 [facility] Influenza Virus 2010-05-26 Completed [facility] 00:00:00 [facility] Influenza Virus 2010-05-26 Completed [facility] 00:00:00 [facility] Influenza Virus 2010-05-26 Completed [facility] 00:00:00 [facility] Influenza Virus 2010-05-26 Completed [facility] 00:00:00 [facility] Influenza Virus 2010-05-26 Completed [facility] 00:00:00 [facility] Influenza Virus 2010-05-26 Completed [facility] 00:00:00 [facility] Influenza Virus 2010-05-26 Completed [facility] 00:00:00 [facility] Influenza Virus 2010-05-26 Completed [facility] 00:00:00 [facility] Influenza Virus 2010-05-26 Completed [facility] 00:00:00 [facility] Influenza Virus 2010-05-26 Completed [facility] 00:00:00 [facility] Influenza Virus 2010-05-26 Completed [facility] 00[facility]00:00 [facility] Influenza Virus 2010-05-26 Completed [facility] 00:00:00 [facility] Influenza Virus 2010-05-26 Completed [facility] 00:00:00 [facility] Influenza Virus 2010-05-26 Completed [facility] 00:00:00 [facility] Influenza Virus 2010-05-26 Completed [facility] 00:00:00 [facility] Influenza Virus 2010-05-26 Completed [facility] 00:00:00 [facility] Influenza Virus 2010-05-26 Completed [facility] 00:00:00 [facility] Influenza Virus 2010-05-26 Completed [facility] 00:00:00 [facility] Influenza Virus 2010-05-26 Completed [facility] 00:00:00 [facility] Influenza Virus 2010-05-26 Completed [facility] 00:00:00 [facility] Influenza Virus 2010-05-26 Completed [facility] 00:00:00 [facility] Influenza Virus 2010-05-26 Completed [facility] 00:00:00 [facility] Influenza Virus 2010-05-26 Completed [facility] 00:00:00 [facility] Influenza Virus 2010-05-26 Completed [facility] 00:00:00 [facility] Influenza Virus 2010-05-26 Completed [facility] 00:00:00 [facility] Influenza Virus 2010-05-26 Completed [facility] 00:00:00 [facility] Influenza Virus 2010-05-26 Completed [facility] 00:00:00 [facility] Influenza Virus 2010-05-26 Completed [facility] 00:00:00 [facility] Influenza Virus 2010-05-26 Completed [facility] 00:00:00 [facility] Influenza Virus 2010-05-26 Completed [facility] 00:00:00 [facility] Influenza Virus 2010-05-26 Completed [facility] 00:00:00 [facility] Influenza Virus 2010-05-26 Completed [facility] 00:00:00 [facility] Influenza Virus 2010-05-26 Completed [facility] 00:00:00 [facility] Influenza Virus 2010-05-26 Completed [facility] 00:00:00 [facility] Influenza Virus 2010-05-26 Completed [facility] 00:00:00 [facility] Influenza Virus 2010-05-26 Completed [facility] 00:00:00 [facility] Influenza Virus 2010-05-26 Completed [facility] 00:00:00 [facility] Influenza Virus 2009-06-23 Completed [facility] 00:00:00 [facility] Influenza Virus 2009-06-23 Completed [facility] 00:00:00 [facility] Influenza Virus 2009-06-23 Completed [facility] 00:00:00 [facility] Influenza Virus 2009-06-23 Completed [facility] 00:00:00 [facility] Influenza Virus 2009-06-23 Completed [facility] 00:00:00 [facility] Influenza Virus 2009-06-23 Completed [facility] 00:00:00 [facility] Influenza Virus 2009-06-23 Completed [facility] 00:00:00 [facility] Influenza Virus 2009-06-23 Completed [facility] 00:00:00 [facility] Influenza Virus 2009-06-23 Completed [facility] 00:00:00 [facility] Influenza Virus 2009-06-23 Completed [facility] 00:00:00 [facility] Influenza Virus 2009-06-23 Completed [facility] 00:00:00 [facility] Influenza Virus 2009-06-23 Completed [facility] 00:00:00 [facility] Influenza Virus 2009-06-23 Completed [facility] 00:00:00 [facility] Influenza Virus 2009-06-23 Completed [facility] 00:00:00 [facility] Influenza Virus 2009-06-23 Completed [facility] 00:00:00 [facility] Influenza Virus 2009-06-23 Completed [facility] 00:00:00 [facility] Influenza Virus 2009-06-23 Completed [facility] 00:00:00 [facility] Influenza Virus 2009-06-23 Completed [facility] 00:00:00 [facility] Influenza Virus 2009-06-23 Completed [facility] 00:00:00 [facility] Influenza Virus 2009-06-23 Completed [facility] 00:00:00 [facility] Influenza Virus 2009-06-23 Completed [facility] 00:00:00 [facility] Influenza Virus 2009-06-23 Completed [facility] 00:00:00 [facility] Influenza Virus 2009-06-23 Completed [facility] 00:00:00 [facility] Influenza Virus 2009-06-23 Completed [facility] 00:00:00 [facility] Influenza Virus 2009-06-23 Completed [facility] 00:00:00 [facility] Influenza Virus 2009-06-23 Completed [facility] 00:00:00 [facility] Influenza Virus 2009-06-23 Completed [facility] 00:00:00 [facility] Influenza Virus 2009-06-23 Completed [facility] 00:00:00 [facility] Influenza Virus 2009-06-23 Completed [facility] 00:00:00 [facility] Influenza Virus 2009-06-23 Completed [facility] 00:00:00 [facility] Influenza Virus 2009-06-23 Completed [facility] 00:00:00 [facility] Influenza Virus 2009-06-23 Completed [facility] 00:00:00 [facility] Influenza Virus 2009-06-23 Completed [facility] 00:00:00 [facility] Influenza Virus 2009-06-23 Completed [facility] 00:00:00 [facility] Influenza Virus 2009-06-23 Completed [facility] 00:00:00 [facility] Influenza Virus 2009-06-23 Completed [facility] 00:00:00 [facility] Influenza Virus 2009-06-23 Completed [facility] 00:00:00 [facility] Influenza Virus 2009-06-23 Completed [facility] 00:00:00 [facility] Influenza Virus 2009-06-23 Completed [facility] 00:00:00 [facility] Influenza Virus 2009-06-23 Completed [facility] 00:00:00 [facility] Influenza Virus 2009-06-23 Completed [facility] 00:00:00 [facility] Influenza Virus 2009-06-23 Completed [facility] 00:00:00 [facility] Influenza Virus 2009-06-23 Completed [facility] 00:00:00 [facility] Influenza Virus 2009-06-23 Completed [facility] 00:00:00 [facility] Influenza Virus 2009-06-23 Completed [facility] 00:00:00 [facility] Influenza Virus 2009-06-23 Completed [facility] 00:00:00 [facility] Influenza Virus 2009-06-23 Completed [facility] 00:00:00 [facility] Influenza Virus 2009-06-23 Completed [facility] 00:00:00 [facility] Influenza Virus 2009-06-23 Completed [facility] 00:00:00 [facility] Influenza Virus 2009-06-23 Completed [facility] 00:00:00 [facility] Influenza Virus 2009-06-23 Completed [facility] 00:00:00 [facility] Influenza Virus 2009-06-23 Completed [facility] 00:00:00 [facility] Influenza Virus 2009-06-23 Completed [facility] 00:00:00 [facility] Influenza Virus 2009-06-23 Completed [facility] 00:00:00 [facility] Influenza Virus 2009-06-23 Completed [facility] 00:00:00 [facility] Influenza Virus 2009-06-23 Completed [facility] 00:00:00 [facility] Influenza Virus 2009-06-23 Completed [facility] 00[facility]00:00 [facility] Influenza Virus 2009-06-23 Completed [facility] 00:00:00 [facility] Influenza Virus 2009-06-23 Completed [facility] 00:00:00 [facility] Influenza Virus 2009-06-23 Completed [facility] 00:00:00 [facility] Influenza Virus 2009-06-23 Completed [facility] 00:00:00 [facility] Influenza Virus 2009-06-23 Completed [facility] 00:00:00 [facility] Influenza Virus 2009-06-23 Completed [facility] 00:00:00 [facility] Influenza Virus 2009-06-23 Completed [facility] 00:00:00 [facility] Influenza Virus 2009-06-23 Completed [facility] 00:00:00 [facility] Influenza Virus 2009-06-23 Completed [facility] 00:00:00 [facility] Influenza Virus 2009-06-23 Completed [facility] 00[facility]00:00 [facility] Influenza Virus 2009-06-23 Completed [facility] 00:00:00 [facility] Influenza Virus 2009-06-23 Completed [facility] 00:00:00 [facility] Influenza Virus 2009-06-23 Completed [facility] 00:00:00 [facility] Influenza Virus 2009-06-23 Completed [facility] 00:00:00 [facility] Influenza Virus 2009-06-23 Completed [facility] 00[facility]00:00 [facility] Influenza Virus 2009-06-23 Completed [facility] 00:00:00 [facility] Influenza Virus 2009-06-23 Completed [facility] 00:00:00 [facility] Influenza Virus 2009-06-23 Completed [facility] Vaccine 00:00:00 [facility] Influenza Virus 2009-06-23 Completed [facility] 00:00:00 [facility] Influenza Virus 2009-06-23 Completed [facility] 00:00:00 [facility] Influenza Virus 2009-06-23 Completed [facility] 00:00:00 [facility] Influenza Virus 2009-06-23 Completed [facility] 00:00:00 [facility] Influenza Virus 2009-06-23 Completed [facility] 00:00:00 [facility] Influenza Virus 2009-06-23 Completed [facility] 00:00:00 [facility] Influenza Virus 2009-06-23 Completed [facility] 00:00:00 [facility] Influenza Virus 2009-06-23 Completed [facility] 00:00:00 [facility] Influenza Virus 2009-06-23 Completed [facility] 00:00:00 [facility] Influenza Virus 2009-06-23 Completed [facility] 00:00:00 [facility] Influenza Virus 2009-06-23 Completed [facility] 00:00:00 [facility] Influenza Virus 2009-06-23 Completed [facility] 00:00:00 [facility] Influenza Virus 2009-06-23 Completed [facility] 00:00:00 [facility] Influenza Virus 2009-06-23 Completed [facility] 00:00:00 [facility] Influenza Virus 2009-06-23 Completed [facility] 00:00:00 [facility] Influenza Virus 2009-06-23 Completed [facility] 00:00:00 [facility] Influenza Virus 2009-06-23 Completed [facility] 00:00:00 [facility] Influenza Virus 2009-06-23 Completed [facility] 00:00:00 [facility] Influenza Virus 2009-06-23 Completed [facility] 00:00:00 [facility] Influenza Virus 2009-06-23 Completed [facility] 00:00:00 [facility] Influenza Virus 2009-06-23 Completed [facility] 00:00:00 [facility] Influenza Virus 2009-06-23 Completed [facility] 00:00:00 [facility] Influenza Virus 2009-06-23 Completed [facility] 00:00:00 [facility] Influenza Virus 2009-06-23 Completed [facility] 00:00:00 [facility] Influenza Virus 2009-06-23 Completed [facility] 00:00:00 [facility] Influenza Virus 2009-06-23 Completed [facility] 00:00:00 [facility] Influenza Virus 2009-06-23 Completed [facility] 00:00:00 [facility] Influenza Virus 2009-06-23 Completed [facility] 00:00:00 [facility] Influenza Virus 2009-06-23 Completed [facility] 00:00:00 [facility] Influenza Virus 2009-06-23 Completed [facility] 00:00:00 [facility] Influenza Virus 2009-05-20 Completed [facility] 00:00:00 [facility] Influenza Virus 2009-05-20 Completed [facility] 00:00:00 [facility] Influenza Virus 2009-05-20 Completed [facility] 00:00:00 [facility] Influenza Virus 2009-05-20 Completed [facility] 00:00:00 [facility] Influenza Virus 2009-05-20 Completed [facility] 00:00:00 [facility] Influenza Virus 2009-05-20 Completed [facility] 00:00:00 [facility] Influenza Virus 2009-05-20 Completed [facility] 00:00:00 [facility] Influenza Virus 2009-05-20 [facility] 00:00:00 [facility] Influenza Virus 2009-05-20 Completed [facility] Vaccine 00:00:00 [facility] Influenza Virus 2009-05-20 Completed [facility] Vaccine 00[facility]00:00 [facility] Influenza Virus 2009-05-20 Completed [facility] Vaccine 00:00:00 [facility] Influenza Virus 2009-05-20 Completed [facility] Vaccine 00:00:00 [facility] Influenza Virus 2009-05-20 Completed [facility] Vaccine 00:00:00 [facility] Influenza Virus 2009-05-20 Completed [facility] Vaccine 00:00:00 [facility] Influenza Virus 2009-05-20 Completed [facility] Vaccine 00:00:00 [facility] Influenza Virus 2009-05-20 Completed [facility] Vaccine 00:00:00 [facility] Influenza Virus 2009-05-20 Completed [facility] Vaccine 00:00:00 [facility] Influenza Virus 2009-05-20 Completed [facility] Vaccine 00:00:00 [facility] Influenza Virus 2009-05-20 Completed [facility] Vaccine 00:00:00 [facility] Influenza Virus 2009-05-20 Completed [facility] Vaccine 00:00:00 [facility] Influenza Virus 2009-05-20 Completed [facility] Vaccine 00:00:00 [facility] Influenza Virus 2009-05-20 Completed [facility] Vaccine 00:00:00 [facility] Influenza Virus 2009-05-20 Completed [facility] Vaccine 00:00:00 [facility] Influenza Virus 2009-05-20 Completed [facility] Vaccine 00:00:00 [facility] Influenza Virus 2009-05-20 Completed [facility] Vaccine 00:00:00 [facility] Influenza Virus 2009-05-20 Completed [facility] Vaccine 00:00:00 [facility] Influenza Virus 2009-05-20 Completed [facility] Vaccine 00:00:00 [facility] Influenza Virus 2009-05-20 Completed [facility] Vaccine 00:00:00 [facility] Influenza Virus 2009-05-20 Completed [facility] Vaccine 00:00:00 [facility] Influenza Virus 2009-05-20 Completed [facility] Vaccine 00:00:00 [facility] Influenza Virus 2009-05-20 Completed [facility] Vaccine 00:00:00 [facility] Influenza Virus 2009-05-20 Completed [facility] Vaccine 00:00:00 [facility] Influenza Virus 2009-05-20 Completed [facility] Vaccine 00:00:00 [facility] Influenza Virus 2009-05-20 Completed [facility] Vaccine 00:00:00 [facility] Influenza Virus 2009-05-20 Completed [facility] Vaccine 00:00:00 [facility] Influenza Virus 2009-05-20 Completed [facility] Vaccine 00:00:00 [facility] Influenza Virus 2009-05-20 Completed [facility] Vaccine 00:00:00 [facility] Influenza Virus 2009-05-20 Completed [facility] Vaccine 00:00:00 [facility] Influenza Virus 2009-05-20 Completed [facility] Vaccine 00:00:00 [facility] Influenza Virus 2009-05-20 Completed [facility] Vaccine 00:00:00 [facility] Influenza Virus 2009-05-20 Completed [facility] Vaccine 00:00:00 [facility] Influenza Virus 2009-05-20 Completed [facility] Vaccine 00:00:00 [facility] Influenza Virus 2009-05-20 Completed [facility] Vaccine 00:00:00 [facility] Influenza Virus 2009-05-20 Completed [facility] Vaccine 00:00:00 [facility] Influenza Virus 2009-05-20 Completed [facility] Vaccine 00:00:00 [facility] Influenza Virus 2009-05-20 Completed [facility] Vaccine 00:00:00 [facility] Influenza Virus 2009-05-20 Completed [facility] Vaccine 00:00:00 [facility] Influenza Virus 2009-05-20 Completed [facility] Vaccine 00:00:00 [facility] Influenza Virus 2009-05-20 Completed [facility] Vaccine 00:00:00 [facility] Influenza Virus 2009-05-20 Completed [facility] Vaccine 00:00:00 [facility] Influenza Virus 2009-05-20 Completed [facility] Vaccine 00:00:00 [facility] Influenza Virus 2009-05-20 Completed [facility] Vaccine 00:00:00 [facility] Influenza Virus 2009-05-20 Completed [facility] Vaccine 00:00:00 [facility] Influenza Virus 2009-05-20 Completed [facility] Vaccine 00:00:00 [facility] Influenza Virus 2009-05-20 Completed [facility] Vaccine 00:00:00 [facility] Influenza Virus 2009-05-20 Completed [facility] Vaccine 00:00:00 [facility] Influenza Virus 2009-05-20 Completed [facility] Vaccine 00:00:00 [facility] Influenza Virus 2009-05-20 Completed [facility] Vaccine 00:00:00 [facility] Influenza Virus 2009-05-20 Completed [facility] Vaccine 00:00:00 [facility] Influenza Virus 2009-05-20 Completed [facility] Vaccine 00:00:00 [facility] Influenza Virus 2009-05-20 Completed [facility] Vaccine 00:00:00 [facility] Influenza Virus 2009-05-20 Completed [facility] Vaccine 00:00:00 [facility] Influenza Virus 2009-05-20 Completed [facility] Vaccine 00:00:00 [facility] Influenza Virus 2009-05-20 Completed [facility] Vaccine 00:00:00 [facility] Influenza Virus 2009-05-20 Completed [facility] Vaccine 00:00:00 [facility] Influenza Virus 2009-05-20 Completed [facility] Vaccine 00:00:00 [facility] Influenza Virus 2009-05-20 Completed [facility] Vaccine 00[facility]00:00 [facility] Influenza Virus 2009-05-20 Completed [facility] Vaccine 00:00:00 [facility] Influenza Virus 2009-05-20 Completed [facility]ine 00:00:00 [facility] Influenza Virus 2009-05-20 Completed [facility] Vaccine 00:00:00 [facility] Influenza Virus 2009-05-20 Completed [facility] Vaccine 00:00:00 [facility] Influenza Virus 2009-05-20 Completed [facility] Vaccine 00:00:00 [facility] Influenza Virus 2009-05-20 Completed [facility] Vaccine 00:00:00 [facility] Influenza Virus 2009-05-20 Completed [facility] Vaccine 00:00:00 [facility] Influenza Virus 2009-05-20 Completed [facility] Vaccine 00:00:00 [facility] Influenza Virus 2009-05-20 Completed [facility] Vaccine 00:00:00 [facility] Influenza Virus 2009-05-20 Completed [facility] Vaccine 00:00:00 [facility] Influenza Virus 2009-05-20 Completed [facility] Vaccine 00:00:00 [facility] Influenza Virus 2009-05-20 Completed [facility] Vaccine 00:00:00 [facility] Influenza Virus 2009-05-20 Completed [facility] Vaccine 00:00:00 [facility] Influenza Virus 2009-05-20 Completed [facility] Vaccine 00:00:00 [facility] Influenza Virus 2009-05-20 Completed [facility] Vaccine 00:00:00 [facility] Influenza Virus 2009-05-20 Completed [facility] Vaccine 00:00:00 [facility] Influenza Virus 2009-05-20 Completed [facility] Vaccine 00:00:00 [facility] Influenza Virus 2009-05-20 Completed [facility] Vaccine 00:00:00 [facility] Influenza Virus 2009-05-20 Completed [facility]ine 00:00:00 [facility] Influenza Virus 2009-05-20 Completed [facility]ine 00:00:00 [facility] Influenza Virus 2009-05-20 Completed [facility] Vaccine 00:00:00 [facility] Influenza Virus 2009-05-20 Completed [facility] Vaccine 00[facility]00:00 [facility] Influenza Virus 2009-05-20 Completed [facility] Vaccine 00[facility]00:00 [facility] Influenza Virus 2009-05-20 Completed [facility] Vaccine 00:00:00 [facility] Influenza Virus 2009-05-20 Completed [facility] Vaccine 00:00:00 [facility] Influenza Virus 2009-05-20 Completed [facility] Vaccine 00[facility]00:00 [facility] Influenza Virus 2009-05-20 Completed [facility] Vaccine 00:00:00 [facility] Influenza Virus 2009-05-20 Completed [facility] Vaccine 00:00:00 [facility] Influenza Virus 2009-05-20 Completed [facility] Vaccine 00:00:00 [facility] Influenza Virus 2009-05-20 Completed [facility] Vaccine 00:00:00 [facility] Influenza Virus 2009-05-20 Completed [facility] Vaccine 00[facility]00:00 [facility] Influenza Virus 2009-05-20 Completed [facility] Vaccine 00:00:00 [facility] Influenza Virus 2009-05-20 Completed [facility] Vaccine 00:00:00 [facility] Influenza Virus 2009-05-20 Completed [facility] Vaccine 00:00:00 [facility] Influenza Virus 2009-05-20 Completed [facility] Vaccine 00:00:00 [facility] Influenza Virus 2009-05-20 Completed [facility] Vaccine 00:00:00 [facility] Influenza Virus 2009-05-20 Completed [facility] Vaccine 00:00:00 [facility] Influenza Virus 2009-05-20 Completed [facility] Vaccine 00:00:00 [facility] Influenza Virus 2007-06-01 Completed [facility] Vaccine 00:00:00 [facility] Influenza Virus 2007-06-01 Completed [facility] Vaccine 00:00:00 [facility] Influenza Virus 2007-06-01 Completed [facility] Vaccine 00:00:00 [facility] Influenza Virus 2007-06-01 Completed [facility] Vaccine 00:00:00 [facility] Influenza Virus 2007-06-01 Completed [facility] Vaccine 00:00:00 [facility] Influenza Virus 2007-06-01 Completed [facility] Vaccine 00:00:00 [facility] Influenza Virus 2007-06-01 Completed [facility] Vaccine 00:00:00 [facility] Influenza Virus 2007-06-01 Completed [facility] Vaccine 00:00:00 [facility] Influenza Virus 2007-06-01 Completed [facility] Vaccine 00:00:00 [facility] Influenza Virus 2007-06-01 Completed [facility] Vaccine 00:00:00 [facility] Influenza Virus 2007-06-01 Completed [facility] Vaccine 00:00:00 [facility] Influenza Virus 2007-06-01 Completed [facility] Vaccine 00:00:00 [facility] Influenza Virus 2007-06-01 Completed [facility] Vaccine 00:00:00 [facility] Influenza Virus 2007-06-01 Completed [facility] Vaccine 00:00:00 [facility] Influenza Virus 2007-06-01 Completed [facility] Vaccine 00:00:00 [facility] Influenza Virus 2007-06-01 Completed [facility] Vaccine 00:00:00 [facility] Influenza Virus 2007-06-01 Completed [facility] Vaccine 00:00:00 [facility] Influenza Virus 2007-06-01 Completed [facility] Vaccine 00:00:00 [facility] Influenza Virus 2007-06-01 Completed [facility] Vaccine 00:00:00 [facility] Influenza Virus 2007-06-01 Completed [facility] Vaccine 00:00:00 [facility] Influenza Virus 2007-06-01 Completed [facility] Vaccine 00:00:00 [facility] Influenza Virus 2007-06-01 Completed [facility] Vaccine 00:00:00 [facility] Influenza Virus 2007-06-01 Completed [facility] Vaccine 00:00:00 [facility] Influenza Virus 2007-06-01 Completed [facility] Vaccine 00:00:00 [facility] Influenza Virus 2007-06-01 Completed [facility] Vaccine 00:00:00 [facility] Influenza Virus 2007-06-01 Completed [facility] Vaccine 00:00:00 [facility] Influenza Virus 2007-06-01 Completed [facility] Vaccine 00:00:00 [facility] Influenza Virus 2007-06-01 Completed [facility] Vaccine 00:00:00 [facility] Influenza Virus 2007-06-01 Completed [facility] Vaccine 00:00:00 [facility] Influenza Virus 2007-06-01 Completed [facility] Vaccine 00:00:00 [facility] Influenza Virus 2007-06-01 Completed [facility] Vaccine 00:00:00 [facility] Influenza Virus 2007-06-01 Completed [facility] Vaccine 00:00:00 [facility] Influenza Virus 2007-06-01 Completed [facility] Vaccine 00:00:00 [facility] Influenza Virus 2007-06-01 Completed [facility] Vaccine 00:00:00 [facility] Influenza Virus 2007-06-01 Completed [facility] Vaccine 00:00:00 [facility] Influenza Virus 2007-06-01 Completed [facility] Vaccine 00:00:00 [facility] Influenza Virus 2007-06-01 Completed [facility] Vaccine 00:00:00 [facility] Influenza Virus 2007-06-01 Completed [facility] Vaccine 00:00:00 [facility] Influenza Virus 2007-06-01 Completed [facility] Vaccine 00:00:00 [facility] Influenza Virus 2007-06-01 Completed [facility] Vaccine 00:00:00 [facility] Influenza Virus 2007-06-01 Completed [facility] Vaccine 00:00:00 [facility] Influenza Virus 2007-06-01 Completed [facility] Vaccine 00:00:00 [facility] Influenza Virus 2007-06-01 Completed [facility] Vaccine 00:00:00 [facility] Influenza Virus 2007-06-01 Completed [facility] Vaccine 00:00:00 [facility] Influenza Virus 2007-06-01 Completed [facility] Vaccine 00:00:00 [facility] Influenza Virus 2007-06-01 Completed [facility] Vaccine 00:00:00 [facility] Influenza Virus 2007-06-01 Completed [facility] Vaccine 00:00:00 [facility] Influenza Virus 2007-06-01 Completed [facility] Vaccine 00:00:00 [facility] Influenza Virus 2007-06-01 Completed [facility] Vaccine 00:00:00 [facility] Influenza Virus 2007-06-01 Completed [facility] Vaccine 00:00:00 [facility] Influenza Virus 2007-06-01 Completed [facility] Vaccine 00:00:00 [facility] Influenza Virus 2007-06-01 Completed [facility] Vaccine 00:00:00 [facility] Influenza Virus 2007-06-01 Completed [facility] Vaccine 00:00:00 [facility] Influenza Virus 2007-06-01 Completed [facility] Vaccine 00:00:00 [facility] Influenza Virus 2007-06-01 Completed [facility] Vaccine 00:00:00 [facility] Influenza Virus 2007-06-01 Completed [facility] Vaccine 00:00:00 [facility] Influenza Virus 2007-06-01 Completed [facility] Vaccine 00:00:00 [facility] Influenza Virus 2007-06-01 Completed [facility] Vaccine 00:00:00 [facility] Influenza Virus 2007-06-01 Completed [facility] Vaccine 00:00:00 [facility] Influenza Virus 2007-06-01 Completed [facility] Vaccine 00:00:00 [facility] Influenza Virus 2007-06-01 Completed [facility] Vaccine 00:00:00 [facility] Influenza Virus 2007-06-01 Completed [facility] Vaccine 00:00:00 [facility] Influenza Virus 2007-06-01 Completed [facility] Vaccine 00:00:00 [facility] Influenza Virus 2007-06-01 Completed [facility] Vaccine 00:00:00 [facility] Influenza Virus 2007-06-01 Completed [facility] Vaccine 00:00:00 [facility] Influenza Virus 2007-06-01 Completed [facility] Vaccine 00:00:00 [facility] Influenza Virus 2007-06-01 Completed [facility] Vaccine 00:00:00 [facility] Influenza Virus 2007-06-01 Completed [facility] Vaccine 00:00:00 [facility] Influenza Virus 2007-06-01 Completed [facility] Vaccine 00:00:00 [facility] Influenza Virus 2007-06-01 Completed [facility] Vaccine 00:00:00 [facility] Influenza Virus 2007-06-01 Completed [facility] Vaccine 00:00:00 [facility] Influenza Virus 2007-06-01 Completed [facility] Vaccine 00:00:00 [facility] Influenza Virus 2007-06-01 Completed [facility] Vaccine 00:00:00 [facility] Influenza Virus 2007-06-01 Completed [facility] Vaccine 00:00:00 [facility] Influenza Virus 2007-06-01 Completed [facility] Vaccine 00:00:00 [facility] Influenza Virus 2007-06-01 Completed [facility] Vaccine 00:00:00 [facility] Influenza Virus 2007-06-01 Completed [facility] Vaccine 00:00:00 [facility] Influenza Virus 2007-06-01 Completed [facility] Vaccine 00:00:00 [facility] Influenza Virus 2007-06-01 Completed [facility] Vaccine 00:00:00 [facility] Influenza Virus 2007-06-01 Completed [facility] Vaccine 00:00:00 [facility] Influenza Virus 2007-06-01 Completed [facility] Vaccine 00:00:00 [facility] Influenza Virus 2007-06-01 Completed [facility] Vaccine 00:00:00 [facility] Influenza Virus 2007-06-01 Completed [facility] Vaccine 00:00:00 [facility] Influenza Virus 2007-06-01 Completed [facility] Vaccine 00:00:00 [facility] Influenza Virus 2007-06-01 Completed [facility] Vaccine 00:00:00 [facility] Influenza Virus 2007-06-01 Completed [facility] Vaccine 00:00:00 [facility] Influenza Virus 2007-06-01 Completed [facility] Vaccine 00:00:00 [facility] Influenza Virus 2007-06-01 Completed [facility] Vaccine 00:00:00 [facility] Influenza Virus 2007-06-01 Completed [facility] Vaccine 00:00:00 [facility] Influenza Virus 2007-06-01 Completed [facility] Vaccine 00:00:00 [facility] Influenza Virus 2007-06-01 Completed [facility] Vaccine 00:00:00 [facility] Influenza Virus 2007-06-01 Completed [facility] Vaccine 00:00:00 [facility] Influenza Virus 2007-06-01 Completed [facility] Vaccine 00:00:00 [facility] Influenza Virus 2007-06-01 Completed [facility] Vaccine 00:00:00 [facility] Influenza Virus 2007-06-01 Completed [facility] Vaccine 00:00:00 [facility] Influenza Virus 2007-06-01 Completed [facility]ine 00:00:00 [facility] Influenza Virus 2007-06-01 Completed [facility] Vaccine 00:00:00 [facility] Influenza Virus 2007-06-01 Completed [facility] Vaccine 00:00:00 [facility] Influenza Virus 2007-06-01 Completed [facility] Vaccine 00:00:00 [facility] Influenza Virus 2007-06-01 Completed [facility] Vaccine 00:00:00 [facility] Influenza Virus 2007-06-01 Completed [facility] Vaccine 00:00:00 [facility] Influenza Virus 2007-06-01 Completed [facility]ine 00:00:00 [facility] Influenza Virus 2007-06-01 Completed [facility]ine 00:00:00 [facility] Influenza Virus 2007-06-01 Completed [facility] Vaccine 00:00:00 [facility] Influenza Virus 2007-06-01 Completed [facility]ine 00:00:00 [facility] DTAP 2006-05-24 Completed [facility] 00[facility]00:00 [facility] Proquad 2006-05-24 Completed [facility] (MMR/VARICELLA) 00:00:00 [facility] Polio (IPV/OPV) 2006-05-24 Completed [facility] 00:00:00 [facility] DTAP 2006-05-24 Completed [facility] 00:00:00 [facility] Proquad 2006-05-24 Completed [facility] (MMR/VARICELLA) 00:00:00 [facility] Polio (IPV/OPV) 2006-05-24 Completed [facility] 00:00:00 [facility] DTAP 2006-05-24 Completed [facility] 00:00:00 [facility] Proquad 2006-05-24 Completed [facility] (MMR/VARICELLA) 00:00:00 [facility] Polio (IPV/OPV) 2006-05-24 Completed [facility] 00:00:00 [facility] DTAP 2006-05-24 Completed [facility] 00:00:00 [facility] Proquad 2006-05-24 Completed [facility] (MMR/VARICELLA) 00:00:00 [facility] Polio (IPV/OPV) 2006-05-24 Completed [facility] 00:00:00 [facility] DTAP 2006-05-24 Completed [facility] 00:00:00 [facility] Proquad 2006-05-24 Completed [facility] (MMR/VARICELLA) 00:00:00 [facility] Polio (IPV/OPV) 2006-05-24 Completed [facility] 00:00:00 [facility] DTAP 2006-05-24 Completed [facility] 00:00:00 [facility] Proquad 2006-05-24 Completed [facility] (MMR/VARICELLA) 00:00:00 [facility] Polio (IPV/OPV) 2006-05-24 Completed [facility] 00:00:00 [facility] DTAP 2006-05-24 Completed [facility] 00:00:00 [facility] Proquad 2006-05-24 Completed [facility] (MMR/VARICELLA) 00:00:00 [facility] Polio (IPV/OPV) 2006-05-24 Completed [facility] 00:00:00 [facility] DTAP 2006-05-24 Completed [facility] 00:00:00 [facility] Proquad 2006-05-24 Completed [facility] (MMR/VARICELLA) 00:00:00 [facility] Polio (IPV/OPV) 2006-05-24 Completed [facility] 00:00:00 [facility] DTAP 2006-05-24 Completed [facility] 00:00:00 [facility] Proquad 2006-05-24 Completed [facility] (MMR/VARICELLA) 00:00:00 [facility] Polio (IPV/OPV) 2006-05-24 Completed [facility] 00:00:00 [facility] DTAP 2006-05-24 Completed [facility] 00:00:00 [facility] Proquad 2006-05-24 Completed [facility] (MMR/VARICELLA) 00:00:00 [facility] Polio (IPV/OPV) 2006-05-24 Completed [facility] 00:00:00 [facility] DTAP 2006-05-24 Completed [facility] 00:00:00 [facility] Proquad 2006-05-24 Completed [facility] (MMR/VARICELLA) 00:00:00 [facility] Polio (IPV/OPV) 2006-05-24 Completed [facility] 00:00:00 [facility] DTAP 2006-05-24 Completed [facility] 00:00:00 [facility] Proquad 2006-05-24 Completed [facility] (MMR/VARICELLA) 00:00:00 [facility] Polio (IPV/OPV) 2006-05-24 Completed [facility] 00:00:00 [facility] DTAP 2006-05-24 Completed [facility] 00:00:00 [facility] Proquad 2006-05-24 Completed [facility] (MMR/VARICELLA) 00:00:00 [facility] Polio (IPV/OPV) 2006-05-24 Completed [facility] 00:00:00 [facility] DTAP 2006-05-24 Completed [facility] 00:00:00 [facility] Proquad 2006-05-24 Completed [facility] (MMR/VARICELLA) 00:00:00 [facility] Pol[facility] (IPV/OPV) 2006-05-24 Completed [facility] 00:00:00 [facility] DTAP 2006-05-24 Completed [facility] 00:00:00 [facility] Proquad 2006-05-24 Completed [facility] (MMR/VARICELLA) 00:00:00 [facility] Polio (IPV/OPV) 2006-05-24 Completed [facility] 00:00:00 [facility] DTAP 2006-05-24 Completed [facility] 00:00:00 [facility] Proquad 2006-05-24 Completed [facility] (MMR/VARICELLA) 00:00:00 [facility] Polio (IPV/OPV) 2006-05-24 Completed [facility] 00:00:00 [facility] DTAP 2006-05-24 Completed [facility] 00:00:00 [facility] Proquad 2006-05-24 Completed [facility] (MMR/VARICELLA) 00:00:00 [facility] Polio (IPV/OPV) 2006-05-24 Completed [facility] 00:00:00 [facility] DTAP 2006-05-24 Completed [facility] 00:00:00 [facility] Proquad 2006-05-24 Completed [facility] (MMR/VARICELLA) 00:00:00 [facility] Polio (IPV/OPV) 2006-05-24 Completed [facility] 00:00:00 [facility] DTAP 2006-05-24 Completed [facility] 00:00:00 [facility] Proquad 2006-05-24 Completed [facility] (MMR/VARICELLA) 00:00:00 [facility] Polio (IPV/OPV) 2006-05-24 Completed [facility] 00:00:00 [facility] DTAP 2006-05-24 Completed [facility] 00:00:00 [facility] Proquad 2006-05-24 Completed [facility] (MMR/VARICELLA) 00:00:00 [facility] Polio (IPV/OPV) 2006-05-24 Completed [facility] 00:00:00 [facility] DTAP 2006-05-24 Completed [facility] 00:00:00 [facility] Proquad 2006-05-24 Completed [facility] (MMR/VARICELLA) 00:00:00 [facility] Polio (IPV/OPV) 2006-05-24 Completed [facility] 00:00:00 [facility] DTAP 2006-05-24 Completed [facility] 00:00:00 [facility] Proquad 2006-05-24 Completed [facility] (MMR/VARICELLA) 00:00:00 [facility] Polio (IPV/OPV) 2006-05-24 Completed [facility] 00:00:00 [facility] DTAP 2006-05-24 Completed [facility] 00:00:00 [facility] Proquad 2006-05-24 Completed [facility] (MMR/VARICELLA) 00:00:00 [facility] Polio (IPV/OPV) 2006-05-24 Completed [facility] 00:00:00 [facility] DTAP 2006-05-24 Completed [facility] 00:00:00 [facility] Proquad 2006-05-24 Completed [facility] (MMR/VARICELLA) 00:00:00 [facility] Polio (IPV/OPV) 2006-05-24 Completed [facility] 00:00:00 [facility] DTAP 2006-05-24 Completed [facility] 00:00:00 [facility] Proquad 2006-05-24 Completed [facility] (MMR/VARICELLA) 00:00:00 [facility] Polio (IPV/OPV) 2006-05-24 Completed [facility] 00:00:00 [facility] DTAP 2006-05-24 Completed [facility] 00:00:00 [facility] Proquad 2006-05-24 Completed [facility] (MMR/VARICELLA) 00:00:00 [facility] Polio (IPV/OPV) 2006-05-24 Completed [facility] 00:00:00 [facility] DTAP 2006-05-24 Completed [facility] 00:00:00 [facility] Proquad 2006-05-24 Completed [facility] (MMR/VARICELLA) 00:00:00 [facility] Polio (IPV/OPV) 2006-05-24 Completed [facility] 00:00:00 [facility] DTAP 2006-05-24 Completed [facility] 00:00:00 [facility] Proquad 2006-05-24 Completed [facility] (MMR/VARICELLA) 00:00:00 [facility] Polio (IPV/OPV) 2006-05-24 Completed [facility] 00:00:00 [facility] DTAP 2006-05-24 Completed [facility] 00:00:00 [facility] Proquad 2006-05-24 Completed [facility] (MMR/VARICELLA) 00:00:00 [facility] Polio (IPV/OPV) 2006-05-24 Completed [facility] 00:00:00 [facility] DTAP 2006-05-24 Completed [facility] 00:00:00 [facility] Proquad 2006-05-24 Completed [facility] (MMR/VARICELLA) 00:00:00 [facility] Polio (IPV/OPV) 2006-05-24 Completed [facility] 00:00:00 [facility] DTAP 2006-05-24 Completed [facility] 00:00:00 [facility] Proquad 2006-05-24 Completed [facility] (MMR/VARICELLA) 00:00:00 [facility] Polio (IPV/OPV) 2006-05-24 Completed [facility] 00:00:00 [facility] DTAP 2006-05-24 Completed [facility] 00:00:00 [facility] Proquad 2006-05-24 Completed [facility] (MMR/VARICELLA) 00:00:00 [facility] Polio (IPV/OPV) 2006-05-24 Completed [facility] 00:00:00 [facility] DTAP 2006-05-24 Completed [facility] 00:00:00 [facility] Proquad 2006-05-24 Completed [facility] (MMR/VARICELLA) 00:00:00 [facility] Polio (IPV/OPV) 2006-05-24 Completed [facility] 00:00:00 [facility] DTAP 2006-05-24 Completed [facility] 00:00:00 [facility] Proquad 2006-05-24 Completed [facility] (MMR/VARICELLA) 00:00:00 [facility] Polio (IPV/OPV) 2006-05-24 Completed [facility] 00:00:00 [facility] DTAP 2006-05-24 Completed [facility] 00:00:00 [facility] Proquad 2006-05-24 Completed [facility] (MMR/VARICELLA) 00:00:00 [facility] Polio (IPV/OPV) 2006-05-24 Completed [facility] 00:00:00 [facility] DTAP 2006-05-24 Completed [facility] 00:00:00 [facility] Proquad 2006-05-24 Completed [facility] (MMR/VARICELLA) 00:00:00 [facility] Polio (IPV/OPV) 2006-05-24 Completed [facility] 00:00:00 [facility] DTAP 2006-05-24 Completed [facility] 00:00:00 [facility] Proquad 2006-05-24 Completed [facility] (MMR/VARICELLA) 00:00:00 [facility] Polio (IPV/OPV) 2006-05-24 Completed [facility] 00:00:00 [facility] DTAP 2006-05-24 Completed [facility] 00:00:00 [facility] Proquad 2006-05-24 Completed [facility] (MMR/VARICELLA) 00:00:00 [facility] Polio (IPV/OPV) 2006-05-24 Completed [facility] 00:00:00 [facility] DTAP 2006-05-24 Completed [facility] 00:00:00 [facility] Proquad 2006-05-24 Completed [facility] (MMR/VARICELLA) 00:00:00 [facility] Polio (IPV/OPV) 2006-05-24 Completed [facility] 00:00:00 [facility] DTAP 2006-05-24 Completed [facility] 00:00:00 [facility] Proquad 2006-05-24 Completed [facility] (MMR/VARICELLA) 00:00:00 [facility] Polio (IPV/OPV) 2006-05-24 Completed [facility] 00:00:00 [facility] DTAP 2006-05-24 Completed [facility] 00:00:00 [facility] Proquad 2006-05-24 Completed [facility] (MMR/VARICELLA) 00:00:00 [facility] Polio (IPV/OPV) 2006-05-24 Completed [facility] 00:00:00 [facility] DTAP 2006-05-24 Completed [facility] 00:00:00 [facility] Proquad 2006-05-24 Completed [facility] (MMR/VARICELLA) 00:00:00 [facility] Polio (IPV/OPV) 2006-05-24 Completed [facility] 00:00:00 [facility] DTAP 2006-05-24 Completed [facility] 00:00:00 [facility] Proquad 2006-05-24 Completed [facility] (MMR/VARICELLA) 00:00:00 [facility] Polio (IPV/OPV) 2006-05-24 Completed [facility] 00:00:00 [facility] DTAP 2006-05-24 Completed [facility] 00:00:00 [facility] Proquad 2006-05-24 Completed [facility] (MMR/VARICELLA) 00:00:00 [facility] Polio (IPV/OPV) 2006-05-24 Completed [facility] 00:00:00 [facility] DTAP 2006-05-24 Completed [facility] 00:00:00 [facility] Proquad 2006-05-24 Completed [facility] (MMR/VARICELLA) 00:00:00 [facility] Polio (IPV/OPV) 2006-05-24 Completed [facility] 00:00:00 [facility] DTAP 2006-05-24 Completed [facility] 00:00:00 [facility] Proquad 2006-05-24 Completed [facility] (MMR/VARICELLA) 00:00:00 [facility] Polio (IPV/OPV) 2006-05-24 Completed [facility] 00:00:00 [facility] DTAP 2006-05-24 Completed [facility] 00:00:00 [facility] Proquad 2006-05-24 Completed [facility] (MMR/VARICELLA) 00:00:00 [facility] Polio (IPV/OPV) 2006-05-24 Completed [facility] 00:00:00 [facility] DTAP 2006-05-24 Completed [facility] 00:00:00 [facility] Proquad 2006-05-24 Completed [facility] (MMR/VARICELLA) 00:00:00 [facility] Polio (IPV/OPV) 2006-05-24 Completed [facility] 00:00:00 [facility] DTAP 2006-05-24 Completed [facility] 00:00:00 [facility] Proquad 2006-05-24 Completed [facility] (MMR/VARICELLA) 00:00:00 [facility] Polio (IPV/OPV) 2006-05-24 Completed [facility] 00:00:00 [facility] DTAP 2006-05-24 Completed [facility] 00:00:00 [facility] Proquad 2006-05-24 Completed [facility] (MMR/VARICELLA) 00:00:00 [facility] Polio (IPV/OPV) 2006-05-24 Completed [facility] 00:00:00 [facility] DTAP 2006-05-24 Completed [facility] 00:00:00 [facility] Proquad 2006-05-24 Completed [facility] (MMR/VARICELLA) 00:00:00 [facility] Polio (IPV/OPV) 2006-05-24 Completed [facility] 00:00:00 [facility] DTAP 2006-05-24 Completed [facility] 00:00:00 [facility] Proquad 2006-05-24 Completed [facility] (MMR/VARICELLA) 00:00:00 [facility] Polio (IPV/OPV) 2006-05-24 Completed [facility] 00:00:00 [facility] DTAP 2006-05-24 Completed [facility] 00:00:00 [facility] Proquad 2006-05-24 Completed [facility] (MMR/VARICELLA) 00:00:00 [facility] Polio (IPV/OPV) 2006-05-24 Completed [facility] 00:00:00 [facility] DTAP 2006-05-24 Completed [facility] 00:00:00 [facility] Proquad 2006-05-24 Completed [facility] (MMR/VARICELLA) 00:00:00 [facility] Polio (IPV/OPV) 2006-05-24 Completed [facility] 00:00:00 [facility] DTAP 2006-05-24 Completed [facility] 00:00:00 [facility] Proquad 2006-05-24 Completed [facility] (MMR/VARICELLA) 00:00:00 [facility] Polio (IPV/OPV) 2006-05-24 Completed [facility] 00:00:00 [facility] DTAP 2006-05-24 Completed [facility] 00:00:00 [facility] Proquad 2006-05-24 Completed [facility] (MMR/VARICELLA) 00:00:00 [facility] Polio (IPV/OPV) 2006-05-24 Completed [facility] 00:00:00 [facility] DTAP 2006-05-24 Completed [facility] 00:00:00 [facility] Proquad 2006-05-24 Completed [facility] (MMR/VARICELLA) 00:00:00 [facility] Polio (IPV/OPV) 2006-05-24 Completed [facility] 00:00:00 [facility] DTAP 2006-05-24 Completed [facility] 00:00:00 [facility] Proquad 2006-05-24 Completed [facility] (MMR/VARICELLA) 00:00:00 [facility] Polio (IPV/OPV) 2006-05-24 Completed [facility] 00:00:00 [facility] DTAP 2006-05-24 Completed [facility] 00:00:00 [facility] Proquad 2006-05-24 Completed [facility] (MMR/VARICELLA) 00:00:00 [facility] Polio (IPV/OPV) 2006-05-24 Completed [facility] 00:00:00 [facility] DTAP 2006-05-24 Completed [facility] 00:00:00 [facility] Proquad 2006-05-24 Completed [facility] (MMR/VARICELLA) 00:00:00 [facility] Polio (IPV/OPV) 2006-05-24 Completed [facility] 00:00:00 [facility] DTAP 2006-05-24 Completed [facility] 00:00:00 [facility] Proquad 2006-05-24 Completed [facility] (MMR/VARICELLA) 00:00:00 [facility] Polio (IPV/OPV) 2006-05-24 Completed [facility] 00:00:00 [facility] DTAP 2006-05-24 Completed [facility] 00:00:00 [facility] Proquad 2006-05-24 Completed [facility] (MMR/VARICELLA) 00:00:00 [facility] Polio (IPV/OPV) 2006-05-24 Completed [facility] 00:00:00 [facility] DTAP 2006-05-24 Completed [facility] 00:00:00 [facility] Proquad 2006-05-24 Completed [facility] (MMR/VARICELLA) 00:00:00 [facility] Polio (IPV/OPV) 2006-05-24 Completed [facility] 00:00:00 [facility] DTAP 2006-05-24 Completed [facility] 00:00:00 [facility] Proquad 2006-05-24 Completed [facility] (MMR/VARICELLA) 00:00:00 [facility] Polio (IPV/OPV) 2006-05-24 Completed [facility] 00:00:00 [facility] DTAP 2006-05-24 Completed [facility] 00:00:00 [facility] Proquad 2006-05-24 Completed [facility] (MMR/VARICELLA) 00:00:00 [facility] Polio (IPV/OPV) 2006-05-24 Completed [facility] 00:00:00 [facility] DTAP 2006-05-24 Completed [facility] 00:00:00 [facility] Proquad 2006-05-24 Completed [facility] (MMR/VARICELLA) 00:00:00 [facility] Polio (IPV/OPV) 2006-05-24 Completed [facility] 00:00:00 [facility] DTAP 2006-05-24 Completed [facility] 00:00:00 [facility] Proquad 2006-05-24 Completed [facility] (MMR/VARICELLA) 00:00:00 [facility] Polio (IPV/OPV) 2006-05-24 Completed [facility] 00:00:00 [facility] DTAP 2006-05-24 Completed [facility] 00:00:00 [facility] Proquad 2006-05-24 Completed [facility] (MMR/VARICELLA) 00:00:00 [facility] Polio (IPV/OPV) 2006-05-24 Completed [facility] 00:00:00 [facility] DTAP 2006-05-24 Completed [facility] 00:00:00 [facility] Proquad 2006-05-24 Completed [facility] (MMR/VARICELLA) 00:00:00 [facility] Polio (IPV/OPV) 2006-05-24 Completed [facility] 00:00:00 [facility] DTAP 2006-05-24 Completed [facility] 00:00:00 [facility] Proquad 2006-05-24 Completed [facility] (MMR/VARICELLA) 00:00:00 [facility] Polio (IPV/OPV) 2006-05-24 Completed [facility] 00:00:00 [facility] DTAP 2006-05-24 Completed [facility] 00:00:00 [facility] Proquad 2006-05-24 Completed [facility] (MMR/VARICELLA) 00:00:00 [facility] Polio (IPV/OPV) 2006-05-24 Completed [facility] 00:00:00 [facility] DTAP 2006-05-24 Completed [facility] 00:00:00 [facility] Proquad 2006-05-24 Completed [facility] (MMR/VARICELLA) 00:00:00 [facility] Polio (IPV/OPV) 2006-05-24 Completed [facility] 00:00:00 [facility] DTAP 2006-05-24 Completed [facility] 00:00:00 [facility] Proquad 2006-05-24 Completed [facility] (MMR/VARICELLA) 00:00:00 [facility] Polio (IPV/OPV) 2006-05-24 Completed [facility] 00:00:00 [facility] DTAP 2006-05-24 Completed [facility] 00:00:00 [facility] Proquad 2006-05-24 Completed [facility] (MMR/VARICELLA) 00:00:00 [facility] Polio (IPV/OPV) 2006-05-24 Completed [facility] 00:00:00 [facility] DTAP 2006-05-24 Completed [facility] 00:00:00 [facility] Proquad 2006-05-24 Completed [facility] (MMR/VARICELLA) 00:00:00 [facility] Polio (IPV/OPV) 2006-05-24 Completed [facility] 00:00:00 [facility] DTAP 2006-05-24 Completed [facility] 00:00:00 [facility] Proquad 2006-05-24 Completed [facility] (MMR/VARICELLA) 00:00:00 [facility] Polio (IPV/OPV) 2006-05-24 Completed [facility] 00:00:00 [facility] DTAP 2006-05-24 Completed [facility] 00:00:00 [facility] Proquad 2006-05-24 Completed [facility] (MMR/VARICELLA) 00:00:00 [facility] Polio (IPV/OPV) 2006-05-24 Completed [facility] 00:00:00 [facility] DTAP 2006-05-24 Completed [facility] 00:00:00 [facility] Proquad 2006-05-24 Completed [facility] (MMR/VARICELLA) 00:00:00 [facility] [facility] Polio (IPV/OPV) 2006-05-24 Completed [facility] 00:00:00 [facility] DTAP 2006-05-24 Completed [facility] 00:00:00 [facility] Proquad 2006-05-24 Completed [facility] of (MMR/VARICELLA) 00:00:00 [facility] ical Branch Polio (IPV/OPV) 2006-05-24 Completed [facility] 00:00:00 [facility] DTAP 2006-05-24 Completed [facility] 00:00:00 [facility] Proquad 2006-05-24 Completed [facility] (MMR/VARICELLA) 00:00:00 [facility] ([facility]OPV[facility] 2006-05-24 Completed [facility] 00:00:00 [facility] DTAP 2006-05-24 Completed [facility] 00:00:00 [facility] Proquad 2006-05-24 Completed [facility] (MMR/VARICELLA) 00:00:00 [facility] Polio (IPV/OPV) 2006-05-24 Completed [facility] 00:00:00 [facility] DTAP 2006-05-24 Completed [facility] 00:00:00 [facility] Proquad 2006-05-24 Completed [facility] of (MMR/VARICELLA) 00:00:00 [facility] Polio (IPV/OPV) 2006-05-24 Completed [facility] 00:00:00 [facility] DTAP 2006-05-24 Completed [facility] 00:00:00 [facility] Proquad 2006-05-24 Completed [facility] of (MMR/VARICELLA) 00:00:00 [facility] Polio (IPV/OPV) 2006-05-24 Completed [facility] 00:00:00 [facility] DTAP 2006-05-24 Completed [facility] 00:00:00 [facility] Proquad 2006-05-24 Completed [facility] (MMR/VARICELLA) 00:00:00 [facility] ([facility]/OPV) 2006-05-24 Completed [facility] 00:00:00 [facility] DTAP 2006-05-24 Completed [facility] 00:00:00 [facility] Proquad 2006-05-24 Completed [facility] of (MMR/VARICELLA) 00:00:00 [facility] Polio (IPV/OPV) 2006-05-24 Completed [facility] 00:00:00 [facility] DTAP 2006-05-24 Completed [facility] 00:00:00 [facility] Proquad 2006-05-24 Completed [facility] (MMR/VARICELLA) 00:00:00 [facility] (IPV/OPV) 2006-05-24 Completed [facility] 00:00:00 [facility] DTAP 2006-05-24 Completed [facility] 00:00:00 [facility] Proquad 2006-05-24 Completed [facility] (MMR/VARICELLA) 00:00:00 [facility] Polio (IPV/OPV) 2006-05-24 Completed [facility] 00:00:00 [facility] DTAP 2006-05-24 Completed [facility] 00:00:00 [facility] Proquad 2006-05-24 Completed [facility] of (MMR/VARICELLA) 00:00:00 [facility] Polio (IPV/OPV) 2006-05-24 Completed [facility] 00:00:00 [facility] DTAP 2006-05-24 Completed [facility] 00:00:00 [facility] Proquad 2006-05-24 Completed [facility] of (MMR/VARICELLA) 00:00:00 [facility] Polio (IPV/OPV) 2006-05-24 Completed [facility] 00:00:00 [facility] DTAP 2006-05-24 Completed [facility] 00:00:00 [facility] Proquad 2006-05-24 Completed [facility] (MMR/VARICELLA) 00:00:00 [facility] Polio (IPV/OPV) 2006-05-24 Completed [facility] 00:00:00 [facility] DTAP 2006-05-24 Completed [facility] 00:00:00 [facility] Proquad 2006-05-24 Completed [facility] (MMR/VARICELLA) 00:00:00 [facility] Polio (IPV/OPV) 2006-05-24 Completed [facility] 00:00:00 [facility] DTAP 2006-05-24 Completed [facility] 00:00:00 [facility] Proquad 2006-05-24 Completed [facility] (MMR/VARICELLA) 00:00:00 [facility] ([facility]/OPV) 2006-05-24 Completed [facility] 00:00:00 [facility] DTAP 2006-05-24 Completed [facility] 00:00:00 [facility] Proquad 2006-05-24 Completed [facility] of (MMR/VARICELLA) 00:00:00 [facility] Polio (IPV/OPV) 2006-05-24 Completed [facility] 00:00:00 [facility] DTAP 2006-05-24 Completed [facility] 00:00:00 [facility] Proquad 2006-05-24 Completed [facility] of (MMR/VARICELLA) 00:00:00 [facility] Polio (IPV/OPV) 2006-05-24 Completed [facility] 00:00:00 [facility] DTAP 2006-05-24 Completed [facility] 00:00:00 [facility] Proquad 2006-05-24 Completed [facility] of (MMR/VARICELLA) 00:00:00 [facility] Polio (IPV/OPV) 2006-05-24 Completed [facility] 00:00:00 [facility] DTAP 2006-05-24 Completed [facility] 00:00:00 [facility] Proquad 2006-05-24 Completed [facility] of (MMR/VARICELLA) 00:00:00 [facility] Polio (IPV/OPV) 2006-05-24 Completed [facility] 00:00:00 [facility] DTAP 2006-05-24 Completed [facility] 00:00:00 [facility] Proquad 2006-05-24 Completed [facility] (MMR/VARICELLA) 00:00:00 [facility] Polio (IPV/OPV) 2006-05-24 Completed [facility] 00:00:00 [facility] DTAP 2006-05-24 Completed [facility] of 00:00:00 [facility] Proquad 2006-05-24 Completed [facility] of (MMR/VARICELLA) 00:00:00 [facility] Polio (IPV/OPV) 2006-05-24 Completed [facility] 00:00:00 [facility] DTAP 2006-05-24 Completed [facility] 00:00:00 [facility] Proquad 2006-05-24 Completed [facility] of (MMR/VARICELLA) 00:00:00 [facility] Polio (IPV/OPV) 2006-05-24 Completed [facility] 00:00:00 [facility] DTAP 2006-05-24 Completed [facility] 00:00:00 [facility] Proquad 2006-05-24 Completed [facility] of (MMR/VARICELLA) 00:00:00 [facility] Polio (IPV/OPV) 2006-05-24 Completed [facility] 00:00:00 [facility] DTAP 2006-05-24 Completed [facility] 00:00:00 [facility] Proquad 2006-05-24 Completed [facility] of (MMR/VARICELLA) 00:00:00 [facility] Polio (IPV/OPV) 2006-05-24 Completed [facility] 00:00:00 [facility] DTAP 2006-05-24 Completed [facility] 00:00:00 [facility] Proquad 2006-05-24 Completed [facility] of (MMR/VARICELLA) 00:00:00 [facility] Polio (IPV/OPV) 2006-05-24 Completed [facility] 00:00:00 [facility] DTAP 2006-05-24 Completed [facility] 00:00:00 [facility] Proquad 2006-05-24 Completed [facility] of (MMR/VARICELLA) 00:00:00 [facility] Polio (IPV/OPV) 2006-05-24 Completed [facility] 00:00:00 [facility] DTAP 2006-05-24 Completed [facility] 00:00:00 [facility] Proquad 2006-05-24 Completed [facility] of (MMR/VARICELLA) 00:00:00 [facility] Polio (IPV/OPV) 2006-05-24 Completed [facility] 00:00:00 [facility] DTAP 2006-05-24 Completed [facility] 00:00:00 [facility] Proquad 2006-05-24 Completed [facility] of (MMR/VARICELLA) 00:00:00 [facility] Polio (IPV/OPV) 2006-05-24 Completed [facility] 00:00:00 [facility] HEPATITIS A 2005-05-19 Completed [facility] 00:00:00 [facility] Influenza Virus 2005-05-19 Completed [facility] Vaccine 00:00:00 [facility] HEPATITIS A 2005-05-19 Completed [facility] 00:00:00 [facility] Influenza Virus 2005-05-19 Completed [facility] Vaccine 00:00:00 [facility] HEPATITIS A 2005-05-19 Completed [facility] 00:00:00 [facility] Influenza Virus 2005-05-19 Completed [facility] Vaccine 00:00:00 [facility] HEPATITIS A 2005-05-19 Completed [facility] 00:00:00 [facility] Influenza Virus 2005-05-19 Completed [facility] Vaccine 00:00:00 [facility] HEPATITIS A 2005-05-19 Completed [facility] 00:00:00 [facility] Influenza Virus 2005-05-19 Completed [facility] Vaccine 00:00:00 [facility] HEPATITIS A 2005-05-19 Completed [facility] 00:00:00 [facility] Influenza Virus 2005-05-19 Completed [facility] Vaccine 00:00:00 [facility] HEPATITIS A 2005-05-19 Completed [facility] 00:00:00 [facility] Influenza Virus 2005-05-19 Completed [facility] Vaccine 00:00:00 [facility] HEPATITIS A 2005-05-19 Completed [facility] 00:00:00 [facility] Influenza Virus 2005-05-19 Completed [facility] Vaccine 00:00:00 [facility] HEPATITIS A 2005-05-19 Completed [facility] 00:00:00 [facility] Influenza Virus 2005-05-19 Completed [facility] Vaccine 00:00:00 [facility] HEPATITIS A 2005-05-19 Completed [facility] 00:00:00 [facility] Influenza Virus 2005-05-19 Completed [facility] Vaccine 00:00:00 [facility] HEPATITIS A 2005-05-19 Completed [facility] 00:00:00 [facility] Influenza Virus 2005-05-19 Completed [facility] Vaccine 00:00:00 [facility] HEPATITIS A 2005-05-19 Completed [facility] 00:00:00 [facility] Influenza Virus 2005-05-19 Completed [facility] Vaccine 00:00:00 [facility] HEPATITIS A 2005-05-19 Completed [facility] 00:00:00 [facility] Influenza Virus 2005-05-19 Completed [facility] Vaccine 00:00:00 [facility] HEPATITIS A 2005-05-19 Completed [facility] 00:00:00 [facility] Influenza Virus 2005-05-19 Completed [facility] Vaccine 00:00:00 [facility] HEPATITIS A 2005-05-19 Completed [facility] 00:00:00 [facility] Influenza Virus 2005-05-19 Completed [facility] Vaccine 00:00:00 [facility] HEPATITIS A 2005-05-19 Completed [facility] 00:00:00 [facility] Influenza Virus 2005-05-19 Completed [facility] Vaccine 00:00:00 [facility] HEPATITIS A 2005-05-19 Completed [facility] 00:00:00 [facility] Influenza Virus 2005-05-19 Completed [facility] Vaccine 00:00:00 [facility] HEPATITIS A 2005-05-19 Completed [facility] 00:00:00 [facility] Influenza Virus 2005-05-19 Completed [facility] Vaccine 00:00:00 [facility] HEPATITIS A 2005-05-19 Completed [facility] 00:00:00 [facility] Influenza Virus 2005-05-19 Completed [facility] Vaccine 00:00:00 [facility] HEPATITIS A 2005-05-19 Completed [facility] 00:00:00 [facility] Influenza Virus 2005-05-19 Completed [facility] Vaccine 00:00:00 [facility] HEPATITIS A 2005-05-19 Completed [facility] 00:00:00 [facility] Influenza Virus 2005-05-19 Completed [facility] Vaccine 00:00:00 [facility] HEPATITIS A 2005-05-19 Completed [facility] 00:00:00 [facility] Influenza Virus 2005-05-19 Completed [facility] Vaccine 00:00:00 [facility] HEPATITIS A 2005-05-19 Completed [facility] 00:00:00 [facility] Influenza Virus 2005-05-19 Completed [facility] Vaccine 00:00:00 [facility] HEPATITIS A 2005-05-19 Completed [facility] 00:00:00 [facility] Influenza Virus 2005-05-19 Completed [facility] Vaccine 00:00:00 [facility] HEPATITIS A 2005-05-19 Completed [facility] 00:00:00 [facility] Influenza Virus 2005-05-19 Completed [facility] Vaccine 00:00:00 [facility] HEPATITIS A 2005-05-19 Completed [facility] 00:00:00 [facility] Influenza Virus 2005-05-19 Completed [facility] Vaccine 00:00:00 [facility] HEPATITIS A 2005-05-19 Completed [facility] 00:00:00 [facility] Influenza Virus 2005-05-19 Completed [facility] Vaccine 00:00:00 [facility] HEPATITIS A 2005-05-19 Completed [facility] 00:00:00 [facility] Influenza Virus 2005-05-19 Completed [facility] Vaccine 00:00:00 [facility] HEPATITIS A 2005-05-19 Completed [facility] 00:00:00 [facility] Influenza Virus 2005-05-19 Completed [facility] Vaccine 00:00:00 [facility] HEPATITIS A 2005-05-19 Completed [facility] 00:00:00 [facility] Influenza Virus 2005-05-19 Completed [facility] Vaccine 00:00:00 [facility] HEPATITIS A 2005-05-19 Completed [facility] 00:00:00 [facility] Influenza Virus 2005-05-19 Completed [facility] Vaccine 00:00:00 [facility] HEPATITIS A 2005-05-19 Completed [facility] 00:00:00 [facility] Influenza Virus 2005-05-19 Completed [facility] Vaccine 00:00:00 [facility] HEPATITIS A 2005-05-19 Completed [facility] 00:00:00 [facility] Influenza Virus 2005-05-19 Completed [facility] Vaccine 00:00:00 [facility] HEPATITIS A 2005-05-19 Completed [facility] 00:00:00 [facility] Influenza Virus 2005-05-19 Completed [facility] Vaccine 00:00:00 [facility] HEPATITIS A 2005-05-19 Completed [facility] 00:00:00 [facility] Influenza Virus 2005-05-19 Completed [facility] Vaccine 00:00:00 [facility] HEPATITIS A 2005-05-19 Completed [facility] 00:00:00 [facility] Influenza Virus 2005-05-19 Completed [facility] Vaccine 00:00:00 [facility] HEPATITIS A 2005-05-19 Completed [facility] 00:00:00 [facility] Influenza Virus 2005-05-19 Completed [facility] Vaccine 00:00:00 [facility] HEPATITIS A 2005-05-19 Completed [facility] 00:00:00 [facility] Influenza Virus 2005-05-19 Completed [facility] Vaccine 00:00:00 [facility] HEPATITIS A 2005-05-19 Completed [facility] 00:00:00 [facility] Influenza Virus 2005-05-19 Completed [facility] Vaccine 00:00:00 [facility] HEPATITIS A 2005-05-19 Completed [facility] 00:00:00 [facility] Influenza Virus 2005-05-19 Completed [facility] Vaccine 00:00:00 [facility] HEPATITIS A 2005-05-19 Completed [facility] 00:00:00 [facility] Influenza Virus 2005-05-19 Completed [facility] Vaccine 00:00:00 [facility] HEPATITIS A 2005-05-19 Completed [facility] 00:00:00 [facility] Influenza Virus 2005-05-19 Completed [facility] Vaccine 00:00:00 [facility] HEPATITIS A 2005-05-19 Completed [facility] 00:00:00 [facility] Influenza Virus 2005-05-19 Completed [facility] Vaccine 00:00:00 [facility] HEPATITIS A 2005-05-19 Completed [facility] 00:00:00 [facility] Influenza Virus 2005-05-19 Completed [facility] Vaccine 00:00:00 [facility] HEPATITIS A 2005-05-19 Completed [facility] 00:00:00 [facility] Influenza Virus 2005-05-19 Completed [facility] Vaccine 00:00:00 [facility] HEPATITIS A 2005-05-19 Completed [facility] 00:00:00 [facility] Influenza Virus 2005-05-19 Completed [facility] Vaccine 00:00:00 [facility] HEPATITIS A 2005-05-19 Completed [facility] 00:00:00 [facility] Influenza Virus 2005-05-19 Completed [facility] Vaccine 00:00:00 [facility] HEPATITIS A 2005-05-19 Completed [facility] 00:00:00 [facility] Influenza Virus 2005-05-19 Completed [facility] Vaccine 00:00:00 [facility] HEPATITIS A 2005-05-19 Completed [facility] 00:00:00 [facility] Influenza Virus 2005-05-19 Completed [facility] Vaccine 00:00:00 [facility] HEPATITIS A 2005-05-19 Completed [facility] 00:00:00 [facility] Influenza Virus 2005-05-19 Completed [facility] Vaccine 00:00:00 [facility] HEPATITIS A 2005-05-19 Completed [facility] 00:00:00 [facility] Influenza Virus 2005-05-19 Completed [facility] Vaccine 00:00:00 [facility] HEPATITIS A 2005-05-19 Completed [facility] 00:00:00 [facility] Influenza Virus 2005-05-19 Completed [facility] Vaccine 00:00:00 [facility] HEPATITIS A 2005-05-19 Completed [facility] 00:00:00 [facility] Influenza Virus 2005-05-19 Completed [facility] Vaccine 00:00:00 [facility] HEPATITIS A 2005-05-19 Completed [facility] 00:00:00 [facility] Influenza Virus 2005-05-19 Completed [facility] Vaccine 00:00:00 [facility] HEPATITIS A 2005-05-19 Completed [facility] 00:00:00 [facility] Influenza Virus 2005-05-19 Completed [facility] Vaccine 00:00:00 [facility] HEPATITIS A 2005-05-19 Completed [facility] 00:00:00 [facility] Influenza Virus 2005-05-19 Completed [facility] Vaccine 00:00:00 [facility] HEPATITIS A 2005-05-19 Completed [facility] 00:00:00 [facility] Influenza Virus 2005-05-19 Completed [facility] Vaccine 00:00:00 [facility] HEPATITIS A 2005-05-19 Completed [facility] 00:00:00 [facility] Influenza Virus 2005-05-19 Completed [facility] Vaccine 00:00:00 [facility] HEPATITIS A 2005-05-19 Completed [facility] 00:00:00 [facility] Influenza Virus 2005-05-19 Completed [facility] Vaccine 00:00:00 [facility] HEPATITIS A 2005-05-19 Completed [facility] 00:00:00 [facility] Influenza Virus 2005-05-19 Completed [facility] Vaccine 00:00:00 [facility] HEPATITIS A 2005-05-19 Completed [facility] 00:00:00 [facility] Influenza Virus 2005-05-19 Completed [facility] Vaccine 00:00:00 [facility] HEPATITIS A 2005-05-19 Completed [facility] 00:00:00 [facility] Influenza Virus 2005-05-19 Completed [facility] Vaccine 00:00:00 [facility] HEPATITIS A 2005-05-19 Completed [facility] 00:00:00 [facility] Influenza Virus 2005-05-19 Completed [facility] Vaccine 00:00:00 [facility] HEPATITIS A 2005-05-19 Completed [facility] 00:00:00 [facility] Influenza Virus 2005-05-19 Completed [facility] Vaccine 00:00:00 [facility] HEPATITIS A 2005-05-19 Completed [facility] 00:00:00 [facility] Influenza Virus 2005-05-19 Completed [facility] Vaccine 00:00:00 [facility] HEPATITIS A 2005-05-19 Completed [facility] 00:00:00 [facility] Influenza Virus 2005-05-19 Completed [facility] Vaccine 00:00:00 [facility] HEPATITIS A 2005-05-19 Completed [facility] 00:00:00 [facility] Influenza Virus 2005-05-19 Completed [facility] Vaccine 00:00:00 [facility] HEPATITIS A 2005-05-19 Completed [facility] 00:00:00 [facility] Influenza Virus 2005-05-19 Completed [facility] Vaccine 00:00:00 [facility] HEPATITIS A 2005-05-19 Completed [facility] 00:00:00 [facility] Influenza Virus 2005-05-19 Completed [facility] Vaccine 00:00:00 [facility] HEPATITIS A 2005-05-19 Completed [facility] of 00:00:00 [facility] Influenza Virus 2005-05-19 Completed [facility] Vaccine 00:00:00 [facility] HEPATITIS A 2005-05-19 Completed [facility] 00:00:00 [facility] Influenza Virus 2005-05-19 Completed [facility] Vaccine 00:00:00 [facility] HEPATITIS A 2005-05-19 Completed [facility] 00:00:00 [facility] Influenza Virus 2005-05-19 Completed [facility] Vaccine 00:00:00 [facility] HEPATITIS A 2005-05-19 Completed [facility] 00:00:00 [facility] Influenza Virus 2005-05-19 Completed [facility] Vaccine 00:00:00 [facility] HEPATITIS A 2005-05-19 Completed [facility] 00:00:00 [facility] Influenza Virus 2005-05-19 Completed [facility] Vaccine 00:00:00 [facility] HEPATITIS A 2005-05-19 Completed [facility] 00:00:00 [facility] Influenza Virus 2005-05-19 Completed [facility] Vaccine 00:00:00 [facility] HEPATITIS A 2005-05-19 Completed [facility] 00:00:00 [facility] Influenza Virus 2005-05-19 Completed [facility] Vaccine 00:00:00 [facility] HEPATITIS A 2005-05-19 Completed [facility] 00:00:00 [facility] Influenza Virus 2005-05-19 Completed [facility] Vaccine 00:00:00 [facility] HEPATITIS A 2005-05-19 Completed [facility] 00:00:00 [facility] Influenza Virus 2005-05-19 Completed [facility] Vaccine 00:00:00 [facility] HEPATITIS A 2005-05-19 Completed [facility] 00:00:00 [facility] Influenza Virus 2005-05-19 Completed [facility] Vaccine 00:00:00 [facility] HEPATITIS A 2005-05-19 Completed [facility] 00:00:00 [facility] Influenza Virus 2005-05-19 Completed [facility] Vaccine 00:00:00 [facility] HEPATITIS A 2005-05-19 Completed [facility] 00:00:00 [facility] Influenza Virus 2005-05-19 Completed [facility] Vaccine 00:00:00 [facility] HEPATITIS A 2005-05-19 Completed [facility] 00:00:00 [facility] Influenza Virus 2005-05-19 Completed [facility] Vaccine 00:00:00 [facility] HEPATITIS A 2005-05-19 Completed [facility] 00:00:00 [facility] Influenza Virus 2005-05-19 Completed [facility] Vaccine 00:00:00 [facility] HEPATITIS A 2005-05-19 Completed [facility] 00:00:00 [facility] Influenza Virus 2005-05-19 Completed [facility] Vaccine 00:00:00 [facility] HEPATITIS A 2005-05-19 Completed [facility] 00:00:00 [facility] Influenza Virus 2005-05-19 Completed [facility] Vaccine 00:00:00 [facility] HEPATITIS A 2005-05-19 Completed [facility] 00:00:00 [facility] Influenza Virus 2005-05-19 Completed [facility] Vaccine 00:00:00 [facility] HEPATITIS A 2005-05-19 Completed [facility] 00:00:00 [facility] Influenza Virus 2005-05-19 Completed [facility] Vaccine 00:00:00 [facility] HEPATITIS A 2005-05-19 Completed [facility] 00:00:00 [facility] Influenza Virus 2005-05-19 Completed [facility] Vaccine 00:00:00 [facility] HEPATITIS A 2005-05-19 Completed [facility] 00:00:00 [facility] Influenza Virus 2005-05-19 Completed [facility] Vaccine 00:00:00 [facility] HEPATITIS A 2005-05-19 Completed [facility] 00:00:00 [facility] Influenza Virus 2005-05-19 Completed [facility] Vaccine 00:00:00 [facility] HEPATITIS A 2005-05-19 Completed [facility] 00:00:00 [facility] Influenza Virus 2005-05-19 Completed [facility] Vaccine 00:00:00 [facility] HEPATITIS A 2005-05-19 Completed [facility] 00:00:00 [facility] Influenza Virus 2005-05-19 Completed [facility] Vaccine 00:00:00 [facility] HEPATITIS A 2005-05-19 Completed [facility] 00:00:00 [facility] Influenza Virus 2005-05-19 Completed [facility] Vaccine 00:00:00 [facility] HEPATITIS A 2005-05-19 Completed [facility] 00:00:00 [facility] Influenza Virus 2005-05-19 Completed [facility] Vaccine 00:00:00 [facility] HEPATITIS A 2005-05-19 Completed [facility] 00:00:00 [facility] Influenza Virus 2005-05-19 Completed [facility] Vaccine 00:00:00 [facility] HEPATITIS A 2005-05-19 Completed [facility] 00:00:00 [facility] Influenza Virus 2005-05-19 Completed [facility] Vaccine 00:00:00 [facility] HEPATITIS A 2005-05-19 Completed [facility] 00:00:00 [facility] Influenza Virus 2005-05-19 Completed [facility] Vaccine 00:00:00 [facility] HEPATITIS A 2005-05-19 Completed [facility] 00:00:00 [facility] Influenza Virus 2005-05-19 Completed [facility] Vaccine 00:00:00 [facility] HEPATITIS A 2005-05-19 Completed [facility] 00:00:00 [facility] Influenza Virus 2005-05-19 Completed [facility] Vaccine 00:00:00 [facility] HEPATITIS A 2005-05-19 Completed [facility] 00:00:00 [facility] Influenza Virus 2005-05-19 Completed [facility] Vaccine 00:00:00 [facility] HEPATITIS A 2005-05-19 Completed [facility] 00:00:00 [facility] Influenza Virus 2005-05-19 Completed [facility] Vaccine 00:00:00 [facility] HEPATITIS A 2005-05-19 Completed [facility] 00:00:00 [facility] Influenza Virus 2005-05-19 Completed [facility] Vaccine 00:00:00 [facility] HEPATITIS A 2005-05-19 Completed [facility] 00:00:00 [facility] Influenza Virus 2005-05-19 Completed [facility] Vaccine 00:00:00 [facility] HEPATITIS A 2005-05-19 Completed [facility] 00:00:00 [facility] Influenza Virus 2005-05-19 Completed [facility] Vaccine 00:00:00 [facility] HEPATITIS A 2005-05-19 Completed [facility] 00:00:00 [facility] Influenza Virus 2005-05-19 Completed [facility] Vaccine 00:00:00 [facility] HEPATITIS A 2004-05-17 Completed [facility] 00:00:00 [facility] HEPATITIS A 2004-05-17 Completed [facility] 00:00:00 [facility] HEPATITIS A 2004-05-17 Completed [facility] 00:00:00 [facility] HEPATITIS A 2004-05-17 Completed [facility] 00:00:00 [facility] HEPATITIS A 2004-05-17 Completed [facility] 00:00:00 [facility] HEPATITIS A 2004-05-17 Completed [facility] 00:00:00 [facility] HEPATITIS A 2004-05-17 Completed [facility] 00:00:00 [facility] HEPATITIS A 2004-05-17 Completed [facility] 00:00:00 [facility] HEPATITIS A 2004-05-17 Completed [facility] 00:00:00 [facility] HEPATITIS A 2004-05-17 Completed [facility] 00:00:00 [facility] HEPATITIS A 2004-05-17 Completed [facility] 00:00:00 [facility] HEPATITIS A 2004-05-17 Completed [facility] 00:00:00 [facility] HEPATITIS A 2004-05-17 Completed [facility] 00:00:00 [facility] HEPATITIS A 2004-05-17 Completed [facility] 00:00:00 [facility] HEPATITIS A 2004-05-17 Completed [facility] 00:00:00 [facility] HEPATITIS A 2004-05-17 Completed [facility] 00:00:00 [facility] HEPATITIS A 2004-05-17 Completed [facility] 00:00:00 [facility] HEPATITIS A 2004-05-17 Completed [facility] 00:00:00 [facility] HEPATITIS A 2004-05-17 Completed [facility] 00:00:00 [facility] HEPATITIS A 2004-05-17 Completed [facility] 00:00:00 [facility] HEPATITIS A 2004-05-17 Completed [facility] 00:00:00 [facility] HEPATITIS A 2004-05-17 Completed [facility] 00:00:00 [facility] HEPATITIS A 2004-05-17 Completed [facility] 00:00:00 [facility] HEPATITIS A 2004-05-17 Completed [facility] 00:00:00 [facility] HEPATITIS A 2004-05-17 Completed [facility] 00:00:00 [facility] HEPATITIS A 2004-05-17 Completed [facility] 00:00:00 [facility] HEPATITIS A 2004-05-17 Completed [facility] 00:00:00 [facility] HEPATITIS A 2004-05-17 Completed [facility] 00:00:00 [facility] HEPATITIS A 2004-05-17 Completed [facility] 00:00:00 [facility] HEPATITIS A 2004-05-17 Completed [facility] 00:00:00 [facility] HEPATITIS A 2004-05-17 Completed [facility] 00:00:00 [facility] HEPATITIS A 2004-05-17 Completed [facility] 00:00:00 [facility] HEPATITIS A 2004-05-17 Completed [facility] 00:00:00 [facility] HEPATITIS A 2004-05-17 Completed [facility] 00:00:00 [facility] HEPATITIS A 2004-05-17 Completed [facility] 00:00:00 [facility] HEPATITIS A 2004-05-17 Completed [facility] 00:00:00 [facility] HEPATITIS A 2004-05-17 Completed [facility] 00:00:00 [facility] HEPATITIS A 2004-05-17 Completed [facility] 00:00:00 [facility] HEPATITIS A 2004-05-17 Completed [facility] 00:00:00 [facility] HEPATITIS A 2004-05-17 Completed [facility] 00:00:00 [facility] HEPATITIS A 2004-05-17 Completed [facility] 00:00:00 [facility] HEPATITIS A 2004-05-17 Completed [facility] 00:00:00 [facility] HEPATITIS A 2004-05-17 Completed [facility] 00:00:00 [facility] HEPATITIS A 2004-05-17 Completed [facility] 00:00:00 [facility] HEPATITIS A 2004-05-17 Completed [facility] 00:00:00 [facility] HEPATITIS A 2004-05-17 Completed [facility] 00:00:00 [facility] HEPATITIS A 2004-05-17 Completed [facility] 00:00:00 [facility] HEPATITIS A 2004-05-17 Completed [facility] 00:00:00 [facility] HEPATITIS A 2004-05-17 Completed [facility] 00:00:00 [facility] HEPATITIS A 2004-05-17 Completed [facility] 00:00:00 [facility] HEPATITIS A 2004-05-17 Completed [facility] 00:00:00 [facility] HEPATITIS A 2004-05-17 Completed [facility] 00:00:00 [facility] HEPATITIS A 2004-05-17 Completed [facility] 00:00:00 [facility] HEPATITIS A 2004-05-17 Completed [facility] 00:00:00 [facility] HEPATITIS A 2004-05-17 Completed [facility] 00:00:00 [facility] HEPATITIS A 2004-05-17 Completed [facility] 00:00:00 [facility] HEPATITIS A 2004-05-17 Completed [facility] 00:00:00 [facility] HEPATITIS A 2004-05-17 Completed [facility] 00:00:00 [facility] HEPATITIS A 2004-05-17 Completed [facility] 00:00:00 [facility] HEPATITIS A 2004-05-17 Completed [facility] 00:00:00 [facility] HEPATITIS A 2004-05-17 Completed [facility] 00:00:00 [facility] HEPATITIS A 2004-05-17 Completed [facility] 00:00:00 [facility] HEPATITIS A 2004-05-17 Completed [facility] 00:00:00 [facility] HEPATITIS A 2004-05-17 Completed [facility] 00:00:00 [facility] HEPATITIS A 2004-05-17 Completed [facility] 00:00:00 [facility] HEPATITIS A 2004-05-17 Completed [facility] 00:00:00 [facility] HEPATITIS A 2004-05-17 Completed [facility] 00:00:00 [facility] HEPATITIS A 2004-05-17 Completed [facility] 00:00:00 [facility] HEPATITIS A 2004-05-17 Completed [facility] 00:00:00 [facility] HEPATITIS A 2004-05-17 Completed [facility] 00:00:00 [facility] HEPATITIS A 2004-05-17 Completed [facility] 00:00:00 [facility] HEPATITIS A 2004-05-17 Completed [facility] 00:00:00 [facility] HEPATITIS A 2004-05-17 Completed [facility] 00:00:00 [facility] HEPATITIS A 2004-05-17 Completed [facility] 00:00:00 [facility] HEPATITIS A 2004-05-17 Completed [facility] 00:00:00 [facility] HEPATITIS A 2004-05-17 Completed [facility] 00:00:00 [facility] HEPATITIS A 2004-05-17 Completed [facility] 00:00:00 [facility] HEPATITIS A 2004-05-17 Completed [facility] 00:00:00 [facility] HEPATITIS A 2004-05-17 Completed [facility] 00:00:00 [facility] HEPATITIS A 2004-05-17 Completed [facility] 00:00:00 [facility] HEPATITIS A 2004-05-17 Completed [facility] 00:00:00 [facility] HEPATITIS A 2004-05-17 Completed [facility] 00:00:00 [facility] HEPATITIS A 2004-05-17 Completed [facility] 00:00:00 [facility] HEPATITIS A 2004-05-17 Completed [facility] 00:00:00 [facility] HEPATITIS A 2004-05-17 Completed [facility] 00:00:00 [facility] HEPATITIS A 2004-05-17 Completed [facility] 00:00:00 [facility] HEPATITIS A 2004-05-17 Completed [facility] 00:00:00 [facility] HEPATITIS A 2004-05-17 Completed [facility] 00:00:00 [facility] HEPATITIS A 2004-05-17 Completed [facility] 00:00:00 [facility] HEPATITIS A 2004-05-17 Completed [facility] 00:00:00 [facility] HEPATITIS A 2004-05-17 Completed [facility] 00:00:00 [facility] HEPATITIS A 2004-05-17 Completed [facility] 00:00:00 [facility] HEPATITIS A 2004-05-17 Completed [facility] 00:00:00 [facility] HEPATITIS A 2004-05-17 Completed [facility] 00:00:00 [facility] HEPATITIS A 2004-05-17 Completed [facility] 00:00:00 [facility] HEPATITIS A 2004-05-17 Completed [facility] 00:00:00 [facility] HEPATITIS A 2004-05-17 Completed [facility] 00:00:00 [facility] HEPATITIS A 2004-05-17 Completed [facility] 00:00:00 [facility] HEPATITIS A 2004-05-17 Completed [facility] 00:00:00 [facility] HEPATITIS A 2004-05-17 Completed [facility] 00:00:00 [facility] HEPATITIS A 2004-05-17 Completed [facility] 00:00:00 [facility] HEPATITIS A 2004-05-17 Completed [facility] 00:00:00 [facility] HEPATITIS A 2004-05-17 Completed [facility] 00:00:00 [facility] HEPATITIS A 2004-05-17 Completed [facility] 00:00:00 [facility] HEPATITIS A 2004-05-17 Completed [facility] 00:00:00 [facility] Polio (IPV/OPV) 2003-08-21 Completed [facility] 00:00:00 [facility] Polio (IPV/OPV) 2003-08-21 Completed [facility] 00:00:00 [facility] Polio (IPV/OPV) 2003-08-21 Completed [facility] 00:00:00 [facility] Polio (IPV/OPV) 2003-08-21 Completed [facility] 00:00:00 [facility] Polio (IPV/OPV) 2003-08-21 Completed [facility] of [...] (IPV/OPV) 2003-08-21 Completed [facility] 00:00:00 [facility] Polio (IPV/OPV) 2003-08-21 Completed [facility]it [...] 2003-08-21 Completed [facility] 00:00:00 [facility] Polio (IPV/OPV) 2003-08-21 Completed [facility] 00:00:00 [facility] Polio (IPV/OPV) 2003-08-21 Completed [facility] 00:00:00 [facility] Polio (IPV/OPV) 2003-08-21 Completed [facility] 00:00:00 [facility] Polio (IPV/OPV) 2003-08-21 Completed [facility] 00:00:00 [facility] Polio (IPV/OPV) 2003-08-21 Completed [facility] 00:00:00 [facility] Polio (IPV/OPV) 2003-08-21 Completed [facility] 00:00:00 [facility] Polio (IPV/OPV) 2003-08-21 Completed [facility] 00:00:00 [facility] Polio (IPV/OPV) 2003-08-21 Completed [facility] 00:00:00 [facility] Polio (IPV/OPV) 2003-08-21 Completed [facility] 00:00:00 [facility] Polio (IPV/OPV) 2003-08-21 Completed [facility] 00:00:00 [facility] Polio (IPV/OPV) 2003-08-21 Completed [facility] 00:00:00 [facility] Polio (IPV/OPV) 2003-08-21 Completed [facility] 00:00:00 [facility] Polio (IPV/OPV) 2003-08-21 Completed [facility] 00:00:00 [facility] Polio (IPV/OPV) 2003-08-21 Completed [facility] 00:00:00 [facility] HIB 4 Dose Schedule 2003-05-22 Completed Unive rsity of 00:00:00 [facility] MMR 2003-05-22 Completed [facility] 00:00:00 [facility] Pneumococcal 7 2003-05-22 Completed [facility] of Conjugate, PCV7 00:00:00 [place] [facility] (Prevnar7) [facility] Varicella 2003-05-22 Completed [facility] of (varivax)(chicken 00:00:00 [place] [facility] pox) [facility] HIB 4 Dose Schedule 2003-05-22 Completed Unive rsity of 00:00:00 [facility] MMR 2003-05-22 Completed [facility] 00:00:00 [facility] Pneumococcal 7 2003-05-22 Completed [facility] of Conjugate, PCV7 00:00:00 [place] [facility] (Prevnar7) [facility] Varicella 2003-05-22 Completed [facility] (varivax)(chicken 00:00:00 [place] [facility] pox) [facility] HIB 4 Dose Schedule 2003-05-22 Completed Unive rsity of 00:00:00 [facility] MMR 2003-05-22 Completed [facility] of 00:00:00 [facility] Pneumococcal 7 2003-05-22 Completed [facility] of Conjugate, PCV7 00:00:00 [place] [facility] (Prevnar7) [facility] Varicella 2003-05-22 Completed [facility] (varivax)(chicken 00:00:00 [place] [facility] pox) [facility] HIB 4 Dose Schedule 2003-05-22 Completed Unive rsity of 00:00:00 [facility] MMR 2003-05-22 Completed [facility] of 00:00:00 [facility] Pneumococcal 7 2003-05-22 Completed [facility] of Conjugate, PCV7 00:00:00 [place] [facility] (Prevnar7) [facility] Varicella 2003-05-22 Completed [facility] (varivax)(chicken 00:00:00 [place] [facility] pox) [facility] HIB 4 Dose Schedule 2003-05-22 Completed Unive rsity of 00:00:00 [facility] MMR 2003-05-22 Completed [facility] of 00:00:00 [facility] Pneumococcal 7 2003-05-22 Completed [facility] of Conjugate, PCV7 00:00:00 [place] [facility] (Prevnar7) [facility] Varicella 2003-05-22 Completed [facility] (varivax)(chicken 00:00:00 [place] [facility] pox) [facility] HIB 4 Dose Schedule 2003-05-22 Completed Unive rsity of 00:00:00 [facility] MMR 2003-05-22 Completed [facility] of 00:00:00 [facility] Pneumococcal 7 2003-05-22 Completed [facility] of Conjugate, PCV7 00:00:00 [place] [facility] (Prevnar7) [facility] Varicella 2003-05-22 Completed [facility] (varivax)(chicken 00:00:00 [place] [facility] pox) [facility] HIB 4 Dose Schedule 2003-05-22 Completed Unive rsity of 00:00:00 [facility] MMR 2003-05-22 Completed [facility] of 00:00:00 [facility] Pneumococcal 7 2003-05-22 Completed [facility] of Conjugate, PCV7 00:00:00 [place] [facility] (Prevnar7) [facility] Varicella 2003-05-22 Completed [facility] of (varivax)(chicken 00:00:00 [facility] edical pox) Branch HIB 4 Dose Schedule 2003-05-22 Completed Unive rsity of 00:00:00 [facility] MMR 2003-05-22 Completed [facility] of 00:00:00 [facility] Pneumococcal 7 2003-05-22 Completed [facility] of Conjugate, PCV7 00:00:00 [place] [facility] (Prevnar7) [facility] Varicella 2003-05-22 Completed [facility] of (varivax)(chicken 00:00:00 [facility] edical pox) Branch HIB 4 Dose Schedule 2003-05-22 Completed [facility] rs[facility] 00:00:00 [facility] [facility] [place] [facility] 2003-05-22 Completed [facility] 00:00:00 [facility] Pneumococcal 7 2003-05-22 Completed University of Conjugate, PCV7 00:00:00 [place] [facility] (Prevnar7) Branch Varicella 2003-05-22 Completed University of (varivax)(chicken 00:00:00 [facility] edical pox) Branch HIB 4 Dose Schedule 2003-05-22 Completed Unive rsity of 00:00:00 [facility] MMR 2003-05-22 Completed [facility] 00:00:00 [facility] Pneumococcal 7 2003-05-22 Completed [facility] Conjugate, PCV7 00:00:00 [place] [facility] (Prevnar7) [facility] Varicella 2003-05-22 Completed [facility] (varivax)(chicken 00:00:00 [facility] [place] edical pox) Branch HIB 4 Dose Schedule 2003-05-22 Completed Unive rsity of 00:00:00 [facility] MMR 2003-05-22 Completed [facility] 00:00:00 [facility] Pneumococcal 7 2003-05-22 Completed [facility] Conjugate, PCV7 00:00:00 [place] [facility] (Prevnar7) Branch Varicella 2003-05-22 Completed [facility] (varivax)(chicken 00:00:00 [facility] [place] edical pox) Branch HIB 4 Dose Schedule 2003-05-22 Completed Unive rsity of 00:00:00 [facility] MMR 2003-05-22 Completed [facility] 00:00:00 [facility] Pneumococcal 7 2003-05-22 Completed [facility] Conjugate, PCV7 00:00:00 [place] [facility] (Prevnar7) [facility] Varicella 2003-05-22 Completed [facility] (varivax)(chicken 00:00:00 [place] [facility] pox) [facility] HIB 4 Dose Schedule 2003-05-22 Completed Unive rsity of 00:00:00 [facility] MMR 2003-05-22 Completed [facility] 00:00:00 [facility] Pneumococcal 7 2003-05-22 Completed [facility] Conjugate, PCV7 00:00:00 [place] [facility] (Prevnar7) Branch Varicella 2003-05-22 Completed [facility] (varivax)(chicken 00:00:00 [place] [facility] pox) [facility] HIB 4 Dose Schedule 2003-05-22 Completed Unive rsity of 00:00:00 [facility] MMR 2003-05-22 Completed [facility] 00:00:00 [facility] Pneumococcal 7 2003-05-22 Completed [facility] Conjugate, PCV7 00:00:00 [place] [facility] (Prevnar7) [facility] Varicella 2003-05-22 Completed [facility] (varivax)(chicken 00:00:00 [place] [facility] pox) [facility] HIB 4 Dose Schedule 2003-05-22 Completed Unive rsity of 00:00:00 [facility] MMR 2003-05-22 Completed [facility] 00:00:00 [facility] Pneumococcal 7 2003-05-22 Completed [facility] Conjugate, PCV7 00:00:00 [place] [facility] (Prevnar7) [facility] Varicella 2003-05-22 Completed [facility] (varivax)(chicken 00:00:00 [place] [facility] pox) [facility] HIB 4 Dose Schedule 2003-05-22 Completed Unive rsity of 00:00:00 [facility] MMR 2003-05-22 Completed [facility] 00:00:00 [facility] Pneumococcal 7 2003-05-22 Completed [facility] of Conjugate, PCV7 00:00:00 [place] [facility] (Prevnar7) Branch Varicella 2003-05-22 Completed [facility] of (varivax)(chicken 00:00:00 [facility] [place] edical pox) Branch HIB 4 Dose Schedule 2003-05-22 Completed Unive rsity of 00:00:00 [facility] MMR 2003-05-22 Completed [facility] 00:00:00 [facility] Pneumococcal 7 2003-05-22 Completed [facility] Conjugate, PCV7 00:00:00 [place] [facility] (Prevnar7) Branch Varicella 2003-05-22 Completed [facility] (varivax)(chicken 00:00:00 [place] [facility] pox) [facility] HIB 4 Dose Schedule 2003-05-22 Completed Unive rsity of 00:00:00 [facility] MMR 2003-05-22 Completed [facility] 00:00:00 [facility] Pneumococcal 7 2003-05-22 Completed [facility] Conjugate, PCV7 00:00:00 [place] [facility] (Prevnar7) Branch Varicella 2003-05-22 Completed [facility] (varivax)(chicken 00:00:00 [place] [facility] pox) Branch HIB 4 Dose Schedule 2003-05-22 Completed Unive rsity of 00:00:00 [facility] MMR 2003-05-22 Completed [facility] 00:00:00 [facility] Pneumococcal 7 2003-05-22 Completed [facility] Conjugate, PCV7 00:00:00 [place] [facility] (Prevnar7) Branch Varicella 2003-05-22 Completed [facility] (varivax)(chicken 00:00:00 [facility] [place] edical pox) Branch HIB 4 Dose Schedule 2003-05-22 Completed Unive rsity of 00:00:00 [facility] MMR 2003-05-22 Completed [facility] of 00:00:00 [facility] Pneumococcal 7 2003-05-22 Completed [facility] of Conjugate, PCV7 00:00:00 [place] [facility] (Prevnar7) Branch Varicella 2003-05-22 Completed [facility] (varivax)(chicken 00:00:00 [place] [facility] pox) Branch HIB 4 Dose Schedule 2003-05-22 Completed Unive rsity of 00:00:00 [facility] MMR 2003-05-22 Completed [facility] 00:00:00 [facility] Pneumococcal 7 2003-05-22 Completed [facility] of Conjugate, PCV7 00:00:00 [place] [facility] (Prevnar7) Branch Varicella 2003-05-22 Completed [facility] (varivax)(chicken 00:00:00 [facility] [place] edical pox) Branch HIB 4 Dose Schedule 2003-05-22 Completed Unive rsity of 00:00:00 [facility] MMR 2003-05-22 Completed [facility] 00:00:00 [facility] Pneumococcal 7 2003-05-22 Completed [facility] of Conjugate, PCV7 00:00:00 [place] [facility] (Prevnar7) Branch Varicella 2003-05-22 Completed [facility] (varivax)(chicken 00:00:00 [place] [facility] pox) [facility] HIB 4 Dose Schedule 2003-05-22 Completed Unive rsity of 00:00:00 [facility] [place] MMR 2003-05-22 Completed [facility] 00:00:00 [facility] Pneumococcal 7 2003-05-22 Completed [facility] Conjugate, PCV7 00:00:00 [place] [facility] (Prevnar7) Branch Varicella 2003-05-22 Completed [facility] (varivax)(chicken 00:00:00 [place] [facility] pox) Branch HIB 4 Dose Schedule 2003-05-22 Completed Unive rsity of 00:00:00 [facility] MMR 2003-05-22 Completed [facility] 00:00:00 [facility] Pneumococcal 7 2003-05-22 Completed [facility] of Conjugate, PCV7 00:00:00 [place] [facility] (Prevnar7) Branch Varicella 2003-05-22 Completed [facility] (varivax)(chicken 00:00:00 [place] [facility] pox) Branch HIB 4 Dose Schedule 2003-05-22 Completed Unive rsity of 00:00:00 [facility] MMR 2003-05-22 Completed [facility] 00:00:00 [facility] Pneumococcal 7 2003-05-22 Completed [facility] of Conjugate, PCV7 00:00:00 [place] [facility] (Prevnar7) Branch Varicella 2003-05-22 Completed [facility] (varivax)(chicken 00:00:00 [place] [facility] pox) Branch HIB 4 Dose Schedule 2003-05-22 Completed Unive rsity of 00:00:00 [facility] MMR 2003-05-22 Completed [facility] of 00:00:00 [facility] Pneumococcal 7 2003-05-22 Completed [facility] of Conjugate, PCV7 00:00:00 [place] [facility] (Prevnar7) Branch Varicella 2003-05-22 Completed [facility] (varivax)(chicken 00:00:00 [place] [facility] pox) [facility] HIB 4 Dose Schedule 2003-05-22 Completed Unive rsity of 00:00:00 [facility] MMR 2003-05-22 Completed [facility] 00:00:00 [facility] Pneumococcal 7 2003-05-22 Completed [facility] Conjugate, PCV7 00:00:00 [place] [facility] (Prevnar7) Branch Varicella 2003-05-22 Completed [facility] (varivax)(chicken 00:00:00 [place] [facility] pox) Branch HIB 4 Dose Schedule 2003-05-22 Completed Unive rsity of 00:00:00 [facility] MMR 2003-05-22 Completed [facility] 00:00:00 [facility] Pneumococcal 7 2003-05-22 Completed [facility] of Conjugate, PCV7 00:00:00 [place] [facility] (Prevnar7) Branch Varicella 2003-05-22 Completed [facility] (varivax)(chicken 00:00:00 [place] [facility] pox) Branch HIB 4 Dose Schedule 2003-05-22 Completed Unive rsity of 00:00:00 [facility] MMR 2003-05-22 Completed [facility] 00:00:00 [facility] Pneumococcal 7 2003-05-22 Completed [facility] of Conjugate, PCV7 00:00:00 [place] [facility] (Prevnar7) Branch Varicella 2003-05-22 Completed [facility] of (varivax)(chicken 00:00:00 [facility] [place] edical pox) Branch HIB 4 Dose Schedule 2003-05-22 Completed Unive rsity of 00:00:00 [facility] MMR 2003-05-22 Completed [facility] 00:00:00 [facility] Pneumococcal 7 2003-05-22 Completed [facility] of Conjugate, PCV7 00:00:00 [place] [facility] (Prevnar7) Branch Varicella 2003-05-22 Completed [facility] (varivax)(chicken 00:00:00 [facility] [place] edical pox) Branch HIB 4 Dose Schedule 2003-05-22 Completed Unive rsity of 00:00:00 [facility] MMR 2003-05-22 Completed [facility] 00:00:00 [facility] Pneumococcal 7 2003-05-22 Completed [facility] Conjugate, PCV7 00:00:00 [place] [facility] (Prevnar7) Branch Varicella 2003-05-22 Completed [facility] (varivax)(chicken 00:00:00 [place] [facility] pox) Branch HIB 4 Dose Schedule 2003-05-22 Completed Unive rsity of 00:00:00 [facility] MMR 2003-05-22 Completed [facility] 00:00:00 [facility] Pneumococcal 7 2003-05-22 Completed [facility] of Conjugate, PCV7 00:00:00 [place] [facility] (Prevnar7) Branch Varicella 2003-05-22 Completed [facility] (varivax)(chicken 00:00:00 [place] [facility] pox) Branch HIB 4 Dose Schedule 2003-05-22 Completed Unive rsity of 00:00:00 [facility] [place] MMR 2003-05-22 Completed [facility] 00:00:00 [facility] [place] Pneumococcal 7 2003-05-22 Completed [facility] of Conjugate, PCV7 00:00:00 [place] [facility] (Prevnar7) Branch Varicella 2003-05-22 Completed [facility] (varivax)(chicken 00:00:00 [place] [facility] pox) Branch HIB 4 Dose Schedule 2003-05-22 Completed Unive rsity of 00:00:00 [facility] [place] MMR 2003-05-22 Completed [facility] 00:00:00 [facility] Pneumococcal 7 2003-05-22 Completed [facility] of Conjugate, PCV7 00:00:00 [place] [facility] (Prevnar7) Branch Varicella 2003-05-22 Completed [facility] (varivax)(chicken 00:00:00 [place] [facility] pox) Branch HIB 4 Dose Schedule 2003-05-22 Completed Unive rsity of 00:00:00 [facility] [place] MMR 2003-05-22 Completed [facility] 00:00:00 [facility] Pneumococcal 7 2003-05-22 Completed [facility] of Conjugate, PCV7 00:00:00 [place] [facility] (Prevnar7) Branch Varicella 2003-05-22 Completed [facility] (varivax)(chicken 00:00:00 [place] [facility] pox) Branch HIB 4 Dose Schedule 2003-05-22 Completed [facility]ive rsity of 00:00:00 [facility] [place] MMR 2003-05-22 Completed [facility] 00:00:00 [facility] Pneumococcal 7 2003-05-22 Completed [facility] Conjugate, PCV7 00:00:00 [place] [facility] (Prevnar7) Branch Varicella 2003-05-22 Completed [facility] (varivax)(chicken 00:00:00 [place] [facility] pox) Branch HIB 4 Dose Schedule 2003-05-22 Completed Unive rsity of 00:00:00 [facility] MMR 2003-05-22 Completed [facility] 00:00:00 [facility] Pneumococcal 7 2003-05-22 Completed [facility] Conjugate, PCV7 00:00:00 [place] [facility] (Prevnar7) Branch Varicella 2003-05-22 Completed [facility] (varivax)(chicken 00:00:00 [place] [facility] pox) Branch HIB 4 Dose Schedule 2003-05-22 Completed Unive rsity of 00:00:00 [facility] [place] MMR 2003-05-22 Completed [facility] 00:00:00 [facility] [place] Pneumococcal 7 2003-05-22 Completed [facility] Conjugate, PCV7 00:00:00 [place] [facility] (Prevnar7) Branch Varicella 2003-05-22 Completed [facility] (varivax)(chicken 00:00:00 [facility] [place] edical pox) Branch HIB 4 Dose Schedule 2003-05-22 Completed Unive rsity of 00:00:00 [facility] MMR 2003-05-22 Completed [facility] 00:00:00 [facility] Pneumococcal 7 2003-05-22 Completed [facility] Conjugate, PCV7 00:00:00 [place] [facility] (Prevnar7) Branch Varicella 2003-05-22 Completed [facility] of (varivax)(chicken 00:00:00 [facility] [place] edical pox) Branch HIB 4 Dose Schedule 2003-05-22 Completed Unive rsity of 00:00:00 [facility] MMR 2003-05-22 Completed [facility] 00:00:00 [facility] [place] Pneumococcal 7 2003-05-22 Completed [facility] of Conjugate, PCV7 00:00:00 [place] [facility] (Prevnar7) Branch Varicella 2003-05-22 Completed [facility] (varivax)(chicken 00:00:00 [facility] [place] edical pox) Branch HIB 4 Dose Schedule 2003-05-22 Completed Unive rsity of 00:00:00 [facility] [place] MMR 2003-05-22 Completed [facility] 00:00:00 [facility] [place] Pneumococcal 7 2003-05-22 Completed [facility] Conjugate, PCV7 00:00:00 [place] [facility] (Prevnar7) Branch Varicella 2003-05-22 Completed [facility] (varivax)(chicken 00:00:00 [facility] [place] edical pox) Branch HIB 4 Dose Schedule 2003-05-22 Completed Unive rsity of 00:00:00 [facility] MMR 2003-05-22 Completed [facility] 00:00:00 [facility] [place] Pneumococcal 7 2003-05-22 Completed [facility] of Conjugate, PCV7 00:00:00 [place] [facility] (Prevnar7) Branch Varicella 2003-05-22 Completed [facility] (varivax)(chicken 00:00:00 [place] [facility] pox) Branch HIB 4 Dose Schedule 2003-05-22 Completed Unive rsity of 00:00:00 [facility] [place] MMR 2003-05-22 Completed [facility] 00:00:00 [facility] [place] Pneumococcal 7 2003-05-22 Completed [facility] Conjugate, PCV7 00:00:00 [place] [facility] (Prevnar7) Branch Varicella 2003-05-22 Completed [facility] (varivax)(chicken 00:00:00 [place] [facility] pox) Branch HIB 4 Dose Schedule 2003-05-22 Completed Unive rsity of 00:00:00 [facility] [place] MMR 2003-05-22 Completed [facility] 00:00:00 [facility] Pneumococcal 7 2003-05-22 Completed [facility] of Conjugate, PCV7 00:00:00 [place] [facility] (Prevnar7) Branch Varicella 2003-05-22 Completed [facility] of (varivax)(chicken 00:00:00 [facility] [place] edical pox) Branch HIB 4 Dose Schedule 2003-05-22 Completed Unive rsity of 00:00:00 [facility] MMR 2003-05-22 Completed [facility] 00:00:00 [facility] [place] Pneumococcal 7 2003-05-22 Completed [facility] of Conjugate, PCV7 00:00:00 [place] [facility] (Prevnar7) Branch Varicella 2003-05-22 Completed [facility] of (varivax)(chicken 00:00:00 [facility] [place] edical pox) Branch HIB 4 Dose Schedule 2003-05-22 Completed Unive rsity of 00:00:00 [facility] MMR 2003-05-22 Completed [facility] 00:00:00 [facility] [place] Pneumococcal 7 2003-05-22 Completed [facility] of Conjugate, PCV7 00:00:00 [place] [facility] (Prevnar7) Branch Varicella 2003-05-22 Completed [facility] (varivax)(chicken 00:00:00 [place] [facility] pox) Branch HIB 4 Dose Schedule 2003-05-22 Completed Unive rsity of 00:00:00 [facility] MMR 2003-05-22 Completed [facility] 00:00:00 [facility] Pneumococcal 7 2003-05-22 Completed [facility] of Conjugate, PCV7 00:00:00 [place] [facility] (Prevnar7) Branch Varicella 2003-05-22 Completed [facility] of (varivax)(chicken 00:00:00 [facility] [place] edical pox) Branch HIB 4 Dose Schedule 2003-05-22 Completed Unive rsity of 00:00:00 [facility] MMR 2003-05-22 Completed [facility] 00:00:00 [facility] Pneumococcal 7 2003-05-22 Completed [facility] of Conjugate, PCV7 00:00:00 [place] [facility] (Prevnar7) Branch Varicella 2003-05-22 Completed [facility] (varivax)(chicken 00:00:00 [place] [facility] pox) Branch HIB 4 Dose Schedule 2003-05-22 Completed Unive rsity of 00:00:00 [facility] [place] MMR 2003-05-22 Completed [facility] 00:00:00 [facility] [place] [facility] Pneumococcal 7 2003-05-22 Completed [facility] of Conjugate, PCV7 00:00:00 [place] [facility] (Prevnar7) Branch Varicella 2003-05-22 Completed [facility] of (varivax)(chicken 00:00:00 [place] [facility] pox) Branch HIB 4 Dose Schedule 2003-05-22 Completed [facility]ive rsity of 00:00:00 [facility] [place] [facility] MMR 2003-05-22 Completed [facility] 00:00:00 [facility] [place] [facility] Pneumococcal 7 2003-05-22 Completed [facility] of Conjugate, PCV7 00:00:00 [place] [facility] (Prevnar7) Branch Varicella 2003-05-22 Completed [facility] of (varivax)(chicken 00:00:00 [place] [facility] pox) Branch HIB 4 Dose Schedule 2003-05-22 Completed Unive rsity of 00:00:00 [facility] [place] MMR 2003-05-22 Completed [facility] 00:00:00 [facility] Pneumococcal 7 2003-05-22 Completed [facility] of Conjugate, PCV7 00:00:00 [place] [facility] (Prevnar7) Branch Varicella 2003-05-22 Completed [facility] (varivax)(chicken 00:00:00 [place] [facility] pox) Branch HIB 4 Dose Schedule 2003-05-22 Completed Unive rsity of 00:00:00 [facility] [place] MMR 2003-05-22 Completed [facility] 00:00:00 [facility] Pneumococcal 7 2003-05-22 Completed [facility] of Conjugate, PCV7 00:00:00 [place] [facility] (Prevnar7) Branch Varicella 2003-05-22 Completed [facility] (varivax)(chicken 00:00:00 [place] [facility] pox) Branch HIB 4 Dose Schedule 2003-05-22 Completed Unive rsity of 00:00:00 [facility] [place] MMR 2003-05-22 Completed [facility] 00:00:00 [facility] Pneumococcal 7 2003-05-22 Completed [facility] of Conjugate, PCV7 00:00:00 [place] [facility] (Prevnar7) Branch Varicella 2003-05-22 Completed [facility] (varivax)(chicken 00:00:00 [place] [facility] pox) Branch HIB 4 Dose Schedule 2003-05-22 Completed Unive rsity of 00:00:00 [facility] [place] MMR 2003-05-22 Completed [facility] 00:00:00 [facility] Pneumococcal 7 2003-05-22 Completed [facility] of Conjugate, PCV7 00:00:00 [place] [facility] (Prevnar7) Branch Varicella 2003-05-22 Completed [facility] (varivax)(chicken 00:00:00 [place] [facility] pox) Branch HIB 4 Dose Schedule 2003-05-22 Completed [facility]ive rsity of 00:00:00 [facility] [place] MMR 2003-05-22 Completed [facility] 00:00:00 [facility] Pneumococcal 7 2003-05-22 Completed [facility] of Conjugate, PCV7 00:00:00 [place] [facility] (Prevnar7) Branch Varicella 2003-05-22 Completed [facility] (varivax)(chicken 00:00:00 [place] [facility] pox) Branch HIB 4 Dose Schedule 2003-05-22 Completed Unive rsity of 00:00:00 [facility] MMR 2003-05-22 Completed [facility] 00:00:00 [facility] Pneumococcal 7 2003-05-22 Completed [facility] of Conjugate, PCV7 00:00:00 [place] [facility] (Prevnar7) Branch Varicella 2003-05-22 Completed [facility] of (varivax)(chicken 00:00:00 [place] [facility] pox) Branch HIB 4 Dose Schedule 2003-05-22 Completed Unive rsity of 00:00:00 [facility] [place] MMR 2003-05-22 Completed [facility] of 00:00:00 [facility] Pneumococcal 7 2003-05-22 Completed [facility] of Conjugate, PCV7 00:00:00 [place] [facility] (Prevnar7) Branch Varicella 2003-05-22 Completed [facility] of (varivax)(chicken 00:00:00 [place] [facility] pox) Branch HIB 4 Dose Schedule 2003-05-22 Completed [facility]ive rsity of 00:00:00 [facility] [place] MMR 2003-05-22 Completed [facility] 00:00:00 [facility] [place] Pneumococcal 7 2003-05-22 Completed [facility] of Conjugate, PCV7 00:00:00 [place] [facility] (Prevnar7) Branch Varicella 2003-05-22 Completed [facility] (varivax)(chicken 00:00:00 [place] [facility] pox) Branch HIB 4 Dose Schedule 2003-05-22 Completed [facility]ive rsity of 00:00:00 [facility] [place] MMR 2003-05-22 Completed [facility] 00:00:00 [facility] Pneumococcal 7 2003-05-22 Completed [facility] of Conjugate, PCV7 00:00:00 [place] [facility] (Prevnar7) Branch Varicella 2003-05-22 Completed [facility] of (varivax)(chicken 00:00:00 [place] [facility] pox) Branch HIB 4 Dose Schedule 2003-05-22 Completed [facility] rsity of 00:00:00 [facility] [place] MMR 2003-05-22 Completed [facility] 00:00:00 [facility] [place] Pneumococcal 7 2003-05-22 Completed [facility] of Conjugate, PCV7 00:00:00 [place] [facility] (Prevnar7) Branch Varicella 2003-05-22 Completed [facility] of (varivax)(chicken 00:00:00 [place] [facility] pox) Branch HIB 4 Dose Schedule 2003-05-22 Completed [facility] rsity of 00:00:00 [facility] [place] MMR 2003-05-22 Completed [facility] 00:00:00 [facility] [place] Pneumococcal 7 2003-05-22 Completed [facility] of Conjugate, PCV7 00:00:00 [place] [facility] (Prevnar7) Branch Varicella 2003-05-22 Completed [facility] of (varivax)(chicken 00:00:00 [place] [facility] pox) Branch HIB 4 Dose Schedule 2003-05-22 Completed [facility] rsity of 00:00:00 [facility] [place] MMR 2003-05-22 Completed [facility] 00:00:00 [facility] [place] Pneumococcal 7 2003-05-22 Completed [facility] of Conjugate, PCV7 00:00:00 [place] [facility] (Prevnar7) Branch Varicella 2003-05-22 Completed [facility] of (varivax)(chicken 00:00:00 [place] [facility] pox) Branch HIB 4 Dose Schedule 2003-05-22 Completed [facility] rsity of 00:00:00 [facility] [place] MMR 2003-05-22 Completed [facility] 00:00:00 [facility] [place] Pneumococcal 7 2003-05-22 Completed [facility] of Conjugate, PCV7 00:00:00 [place] [facility] (Prevnar7) Branch Varicella 2003-05-22 Completed [facility] of (varivax)(chicken 00:00:00 [place] [facility] pox) Branch HIB 4 Dose Schedule 2003-05-22 Completed [facility] 00:00:00 [facility] [place] MMR 2003-05-22 Completed [facility] 00:00:00 [facility] [place] Pneumococcal 7 2003-05-22 Completed [facility] Conjugate, PCV7 00:00:00 [place] [facility] (Prevnar7) Branch Varicella 2003-05-22 Completed [facility] (varivax)(chicken 00:00:00 [place] [facility] pox) Branch HIB 4 Dose Schedule 2003-05-22 Completed [facility] 00:00:00 [facility] [place] MMR 2003-05-22 Completed [facility] 00[facility]00 [facility] [facility] Pneumococcal 7 2003-05-22 Completed [facility] of Conjugate, PCV7 00:00:00 [place] [facility] (Prevnar7) Branch Varicella 2003-05-22 Completed University of (varivax)(chicken 00:00:00 [facility] edical pox) Branch HIB 4 Dose Schedule 2003-05-22 Completed Unive rsity of 00:00:00 [facility] MMR 2003-05-22 Completed [facility] of 00:00:00 [facility] Pneumococcal 7 2003-05-22 Completed [facility] of Conjugate, PCV7 00:00:00 [place] [facility] (Prevnar7) Branch Varicella 2003-05-22 Completed [facility] of (varivax)(chicken 00:00:00 [facility] edical pox) Branch HIB 4 Dose Schedule 2003-05-22 Completed Unive rsity of 00:00:00 [facility] MMR 2003-05-22 Completed [facility] of 00:00:00 [facility] Pneumococcal 7 2003-05-22 Completed [facility] Conjugate, PCV7 00:00:00 [place] [facility] (Prevnar7) [facility] Varicella 2003-05-22 Completed [facility] of (varivax)(chicken 00:00:00 [facility] edical pox) Branch HIB 4 Dose Schedule 2003-05-22 Completed Unive rsity of 00:00:00 [facility] MMR 2003-05-22 Completed [facility] of 00:00:00 [facility] Pneumococcal 7 2003-05-22 Completed [facility] Conjugate, PCV7 00:00:00 [place] [facility] (Prevnar7) [facility] Varicella 2003-05-22 Completed [facility] (varivax)(chicken 00:00:00 [place] [facility] pox) [facility] HIB 4 Dose Schedule 2003-05-22 Completed Unive rsity of 00:00:00 [facility] MMR 2003-05-22 Completed [facility] of 00:00:00 [facility] Pneumococcal 7 2003-05-22 Completed [facility] Conjugate, PCV7 00:00:00 [place] [facility] (Prevnar7) Branch Varicella 2003-05-22 Completed [facility] (varivax)(chicken 00:00:00 [place] [facility] pox) [facility] HIB 4 Dose Schedule 2003-05-22 Completed Unive rsity of 00:00:00 [facility] MMR 2003-05-22 Completed [facility] of 00:00:00 [facility] Pneumococcal 7 2003-05-22 Completed [facility] Conjugate, PCV7 00:00:00 [place] [facility] (Prevnar7) Branch Varicella 2003-05-22 Completed [facility] (varivax)(chicken 00:00:00 [place] [facility] pox) [facility] HIB 4 Dose Schedule 2003-05-22 Completed Unive rsity of 00:00:00 [facility] MMR 2003-05-22 Completed [facility] of 00:00:00 [facility] Pneumococcal 7 2003-05-22 Completed [facility] Conjugate, PCV7 00:00:00 [place] [facility] (Prevnar7) Branch Varicella 2003-05-22 Completed [facility] (varivax)(chicken 00:00:00 [place] [facility] pox) [facility] HIB 4 Dose Schedule 2003-05-22 Completed Unive rsity of 00:00:00 [facility] MMR 2003-05-22 Completed [facility] of 00:00:00 [facility] Pneumococcal 7 2003-05-22 Completed [facility] Conjugate, PCV7 00:00:00 [place] [facility] (Prevnar7) Branch Varicella 2003-05-22 Completed [facility] (varivax)(chicken 00:00:00 [place] [facility] pox) [facility] HIB 4 Dose Schedule 2003-05-22 Completed Unive rsity of 00:00:00 [facility] MMR 2003-05-22 Completed [facility] of 00:00:00 [facility] Pneumococcal 7 2003-05-22 Completed [facility] Conjugate, PCV7 00:00:00 [place] [facility] (Prevnar7) Branch Varicella 2003-05-22 Completed [facility] (varivax)(chicken 00:00:00 [place] [facility] pox) [facility] HIB 4 Dose Schedule 2003-05-22 Completed Unive rsity of 00:00:00 [facility] MMR 2003-05-22 Completed [facility] of 00:00:00 [facility] Pneumococcal 7 2003-05-22 Completed [facility] Conjugate, PCV7 00:00:00 [place] [facility] (Prevnar7) Branch Varicella 2003-05-22 Completed [facility] of (varivax)(chicken 00:00:00 [facility] edical pox) Branch HIB 4 Dose Schedule 2003-05-22 Completed Unive rsity of 00:00:00 [facility] MMR 2003-05-22 Completed University of 00:00:00 [facility] Pneumococcal 7 2003-05-22 Completed [facility] of Conjugate, PCV7 00:00:00 [place] [facility] (Prevnar7) Branch Varicella 2003-05-22 Completed [facility] (varivax)(chicken 00:00:00 [facility] edical pox) Branch HIB 4 Dose Schedule 2003-05-22 Completed Unive rsity of 00:00:00 [facility] MMR 2003-05-22 Completed University of 00:00:00 [facility] Pneumococcal 7 2003-05-22 Completed [facility] of Conjugate, PCV7 00:00:00 [place] [facility] (Prevnar7) Branch Varicella 2003-05-22 Completed [facility] of (varivax)(chicken 00:00:00 [facility] edical pox) Branch HIB 4 Dose Schedule 2003-05-22 Completed Unive rsity of 00:00:00 [facility] MMR 2003-05-22 Completed University of 00:00:00 [facility] Pneumococcal 7 2003-05-22 Completed [facility] of Conjugate, PCV7 00:00:00 [place] [facility] (Prevnar7) Branch Varicella 2003-05-22 Completed [facility] of (varivax)(chicken 00:00:00 [facility] edical pox) Branch DTAP 2003-01-01 Completed [facility] of 00:00:00 [facility] HIB 4 Dose Schedule 2003-01-01 Completed Unive rsity of 00:00:00 [facility] Hep B, Adol or Pedi 2003-01-01 Completed Unive rsity of Dosage 00:00:00 [facility] Pneumococcal 7 2003-01-01 Completed [facility] of Conjugate, PCV7 00:00:00 [place] [facility] (Prevnar7) Branch DTAP 2003-01-01 Completed [facility] of 00:00:00 [facility] HIB 4 Dose Schedule 2003-01-01 Completed Unive rsity of 00:00:00 [facility] Hep B, Adol or Pedi 2003-01-01 Completed Unive rsity of Dosage 00:00:00 [facility] Pneumococcal 7 2003-01-01 Completed [facility] of Conjugate, PCV7 00:00:00 [place] [facility] (Prevnar7) Branch DTAP 2003-01-01 Completed [facility] of 00:00:00 [facility] HIB 4 Dose Schedule 2003-01-01 Completed Unive rsity of 00:00:00 [facility] Hep B, Adol or Pedi 2003-01-01 Completed Unive rsity of Dosage 00:00:00 [facility] Pneumococcal 7 2003-01-01 Completed [facility] of Conjugate, PCV7 00:00:00 [place] [facility] (Prevnar7) Branch DTAP 2003-01-01 Completed [facility] of 00:00:00 [facility] HIB 4 Dose Schedule 2003-01-01 Completed Unive rsity of 00:00:00 [facility] Hep B, Adol or Pedi 2003-01-01 Completed Unive rsity of Dosage 00:00:00 [facility] Pneumococcal 7 2003-01-01 Completed [facility] of Conjugate, PCV7 00:00:00 [place] [facility] (Prevnar7) Branch DTAP 2003-01-01 Completed [facility] of 00:00:00 [facility] HIB 4 Dose Schedule 2003-01-01 Completed Unive rsity of 00:00:00 [facility] Hep B, Adol or Pedi 2003-01-01 Completed Unive rsity of Dosage 00:00:00 [facility] Pneumococcal 7 2003-01-01 Completed [facility] Conjugate, PCV7 00:00:00 [place] [facility] (Prevnar7) Branch DTAP 2003-01-01 Completed [facility] of 00:00:00 [facility] HIB 4 Dose Schedule 2003-01-01 Completed Unive rsity of 00:00:00 [facility] Hep B, Adol or Pedi 2003-01-01 Completed Unive rsity of Dosage 00:00:00 [facility] Pneumococcal 7 2003-01-01 Completed [facility] of Conjugate, PCV7 00:00:00 [place] [facility] (Prevnar7) Branch DTAP 2003-01-01 Completed [facility] of 00:00:00 [facility] HIB 4 Dose Schedule 2003-01-01 Completed Unive rsity of 00:00:00 [facility] Hep B, Adol or Pedi 2003-01-01 Completed Unive rsity of Dosage 00:00:00 [facility] Pneumococcal 7 2003-01-01 Completed [facility] Conjugate, PCV7 00:00:00 [place] [facility] (Prevnar7) Branch DTAP 2003-01-01 Completed [facility] of 00:00:00 [facility] HIB 4 Dose Schedule 2003-01-01 Completed Unive rsity of 00:00:00 [facility] Hep B, Adol or Pedi 2003-01-01 Completed Unive rsity of Dosage 00:00:00 [facility] Pneumococcal 7 2003-01-01 Completed [facility] of Conjugate, PCV7 00:00:00 [place] [facility] (Prevnar7) Branch DTAP 2003-01-01 Completed [facility] of 00:00:00 [facility] HIB 4 Dose Schedule 2003-01-01 Completed Unive rsity of 00:00:00 [facility] Hep B, Adol or Pedi 2003-01-01 Completed Unive rsity of Dosage 00:00:00 [facility] Pneumococcal 7 2003-01-01 Completed [facility] Conjugate, PCV7 00:00:00 [place] [facility] (Prevnar7) Branch DTAP 2003-01-01 Completed [facility] of 00:00:00 [facility] HIB 4 Dose Schedule 2003-01-01 Completed Unive rsity of 00:00:00 [facility] Hep B, Adol or Pedi 2003-01-01 Completed Unive rsity of Dosage 00:00:00 [facility] Pneumococcal 7 2003-01-01 Completed [facility] Conjugate, PCV7 00:00:00 [place] [facility] (Prevnar7) Branch DTAP 2003-01-01 Completed [facility] of 00:00:00 [facility] HIB 4 Dose Schedule 2003-01-01 Completed Unive rsity of 00:00:00 [facility] Hep B, Adol or Pedi 2003-01-01 Completed Unive rsity of Dosage 00:00:00 [facility] Pneumococcal 7 2003-01-01 Completed [facility] of Conjugate, PCV7 00:00:00 [place] [facility] (Prevnar7) Branch DTAP 2003-01-01 Completed [facility] of 00:00:00 [facility] HIB 4 Dose Schedule 2003-01-01 Completed Unive rsity of 00:00:00 [facility] Hep B, Adol or Pedi 2003-01-01 Completed Unive rsity of Dosage 00:00:00 [facility] Pneumococcal 7 2003-01-01 Completed [facility] Conjugate, PCV7 00:00:00 [place] [facility] (Prevnar7) Branch DTAP 2003-01-01 Completed [facility] of 00:00:00 [facility] HIB 4 Dose Schedule 2003-01-01 Completed Unive rsity of 00:00:00 [facility] Hep B, Adol or Pedi 2003-01-01 Completed Unive rsity of Dosage 00:00:00 [facility] Pneumococcal 7 2003-01-01 Completed [facility] of Conjugate, PCV7 00:00:00 [place] [facility] (Prevnar7) Branch DTAP 2003-01-01 Completed [facility] of 00:00:00 [facility] HIB 4 Dose Schedule 2003-01-01 Completed Unive rsity of 00:00:00 [facility] Hep B, Adol or Pedi 2003-01-01 Completed Unive rsity of Dosage 00:00:00 [facility] Pneumococcal 7 2003-01-01 Completed [facility] of Conjugate, PCV7 00:00:00 [place] [facility] (Prevnar7) Branch DTAP 2003-01-01 Completed [facility] of 00:00:00 [facility] HIB 4 Dose Schedule 2003-01-01 Completed Unive rsity of 00:00:00 [facility] Hep B, Adol or Pedi 2003-01-01 Completed Unive rsity of Dosage 00:00:00 [facility] Pneumococcal 7 2003-01-01 Completed [facility] of Conjugate, PCV7 00:00:00 [place] [facility] (Prevnar7) Branch DTAP 2003-01-01 Completed [facility] of 00:00:00 [facility] HIB 4 Dose Schedule 2003-01-01 Completed Unive rsity of 00:00:00 [facility] Hep B, Adol or Pedi 2003-01-01 Completed Unive rsity of Dosage 00:00:00 [facility] Pneumococcal 7 2003-01-01 Completed [facility] of Conjugate, PCV7 00:00:00 [place] [facility] (Prevnar7) Branch DTAP 2003-01-01 Completed [facility] of 00:00:00 [facility] HIB 4 Dose Schedule 2003-01-01 Completed Unive rsity of 00:00:00 [facility] Hep B, Adol or Pedi 2003-01-01 Completed Unive rsity of Dosage 00:00:00 [facility] Pneumococcal 7 2003-01-01 Completed [facility] of Conjugate, PCV7 00:00:00 [place] [facility] (Prevnar7) Branch DTAP 2003-01-01 Completed [facility] of 00:00:00 [facility] HIB 4 Dose Schedule 2003-01-01 Completed Unive rsity of 00:00:00 [facility] Hep B, Adol or Pedi 2003-01-01 Completed Unive rsity of Dosage 00:00:00 [facility] Pneumococcal 7 2003-01-01 Completed [facility] of Conjugate, PCV7 00:00:00 [place] [facility] (Prevnar7) Branch DTAP 2003-01-01 Completed [facility] of 00:00:00 [facility] HIB 4 Dose Schedule 2003-01-01 Completed Unive rsity of 00:00:00 [facility] Hep B, Adol or Pedi 2003-01-01 Completed Unive rsity of Dosage 00:00:00 [facility] Pneumococcal 7 2003-01-01 Completed [facility] of Conjugate, PCV7 00:00:00 [place] [facility] (Prevnar7) Branch DTAP 2003-01-01 Completed [facility] of 00:00:00 [facility] HIB 4 Dose Schedule 2003-01-01 Completed Unive rsity of 00:00:00 [facility] Hep B, Adol or Pedi 2003-01-01 Completed Unive rsity of Dosage 00:00:00 [facility] Pneumococcal 7 2003-01-01 Completed [facility] of Conjugate, PCV7 00:00:00 [place] [facility] (Prevnar7) Branch DTAP 2003-01-01 Completed [facility] of 00:00:00 [facility] HIB 4 Dose Schedule 2003-01-01 Completed Unive rsity of 00:00:00 [facility] Hep B, Adol or Pedi 2003-01-01 Completed Unive rsity of Dosage 00:00:00 [facility] Pneumococcal 7 2003-01-01 Completed [facility] Conjugate, PCV7 00:00:00 [place] [facility] (Prevnar7) Branch DTAP 2003-01-01 Completed [facility] of 00:00:00 [facility] HIB 4 Dose Schedule 2003-01-01 Completed Unive rsity of 00:00:00 [facility] Hep B, Adol or Pedi 2003-01-01 Completed Unive rsity of Dosage 00:00:00 [facility] Pneumococcal 7 2003-01-01 Completed [facility] of Conjugate, PCV7 00:00:00 [place] [facility] (Prevnar7) Branch DTAP 2003-01-01 Completed [facility] of 00:00:00 [facility] HIB 4 Dose Schedule 2003-01-01 Completed Unive rsity of 00:00:00 [facility] Hep B, Adol or Pedi 2003-01-01 Completed Unive rsity of Dosage 00:00:00 [facility] Pneumococcal 7 2003-01-01 Completed [facility] of Conjugate, PCV7 00:00:00 [place] [facility] (Prevnar7) Branch DTAP 2003-01-01 Completed [facility] of 00:00:00 [facility] HIB 4 Dose Schedule 2003-01-01 Completed Unive rsity of 00:00:00 [facility] Hep B, Adol or Pedi 2003-01-01 Completed Unive rsity of Dosage 00:00:00 [facility] Pneumococcal 7 2003-01-01 Completed [facility] of Conjugate, PCV7 00:00:00 [place] [facility] (Prevnar7) Branch DTAP 2003-01-01 Completed [facility] of 00:00:00 [facility] HIB 4 Dose Schedule 2003-01-01 Completed Unive rsity of 00:00:00 [facility] Hep B, Adol or Pedi 2003-01-01 Completed Unive rsity of Dosage 00:00:00 [facility] Pneumococcal 7 2003-01-01 Completed [facility] of Conjugate, PCV7 00:00:00 [place] [facility] (Prevnar7) Branch DTAP 2003-01-01 Completed [facility] of 00:00:00 [facility] HIB 4 Dose Schedule 2003-01-01 Completed Unive rsity of 00:00:00 [facility] Hep B, Adol or Pedi 2003-01-01 Completed Unive rsity of Dosage 00:00:00 [facility] Pneumococcal 7 2003-01-01 Completed [facility] of Conjugate, PCV7 00:00:00 [place] [facility] (Prevnar7) Branch DTAP 2003-01-01 Completed [facility] of 00:00:00 [facility] HIB 4 Dose Schedule 2003-01-01 Completed Unive rsity of 00:00:00 [facility] Hep B, Adol or Pedi 2003-01-01 Completed [facility]ive rsity of Dosage 00:00:00 [facility] Pneumococcal 7 2003-01-01 Completed [facility] of Conjugate, PCV7 00:00:00 [place] [facility] (Prevnar7) Branch DTAP 2003-01-01 Completed [facility] of 00:00:00 [facility] HIB 4 Dose Schedule 2003-01-01 Completed Unive rsity of 00:00:00 [facility] Hep B, Adol or Pedi 2003-01-01 Completed Unive rsity of Dosage 00:00:00 [facility] Pneumococcal 7 2003-01-01 Completed [facility] of Conjugate, PCV7 00:00:00 [place] [facility] (Prevnar7) Branch DTAP 2003-01-01 Completed [facility] of 00:00:00 [facility] HIB 4 Dose Schedule 2003-01-01 Completed Unive rsity of 00:00:00 [facility] Hep B, Adol or Pedi 2003-01-01 Completed Unive rsity of Dosage 00:00:00 [facility] Pneumococcal 7 2003-01-01 Completed [facility] of Conjugate, PCV7 00:00:00 [place] [facility] (Prevnar7) Branch DTAP 2003-01-01 Completed [facility] of 00:00:00 [facility] HIB 4 Dose Schedule 2003-01-01 Completed Unive rsity of 00:00:00 [facility] Hep B, Adol or Pedi 2003-01-01 Completed Unive rsity of Dosage 00:00:00 [facility] Pneumococcal 7 2003-01-01 Completed [facility] of Conjugate, PCV7 00:00:00 [place] [facility] (Prevnar7) Branch DTAP 2003-01-01 Completed [facility] of 00:00:00 [facility] HIB 4 Dose Schedule 2003-01-01 Completed Unive rsity of 00:00:00 [facility] Hep B, Adol or Pedi 2003-01-01 Completed Unive rsity of Dosage 00:00:00 [facility] Pneumococcal 7 2003-01-01 Completed [facility] of Conjugate, PCV7 00:00:00 [place] [facility] (Prevnar7) Branch DTAP 2003-01-01 Completed [facility] of 00:00:00 [facility] HIB 4 Dose Schedule 2003-01-01 Completed Unive rsity of 00:00:00 [facility] Hep B, Adol or Pedi 2003-01-01 Completed Unive rsity of Dosage 00:00:00 [facility] Pneumococcal 7 2003-01-01 Completed [facility] of Conjugate, PCV7 00:00:00 [place] [facility] (Prevnar7) Branch DTAP 2003-01-01 Completed [facility] of 00:00:00 [facility] HIB 4 Dose Schedule 2003-01-01 Completed Unive rsity of 00:00:00 [facility] Hep B, Adol or Pedi 2003-01-01 Completed [facility]ive rsity of Dosage 00:00:00 [facility] Pneumococcal 7 2003-01-01 Completed [facility] of Conjugate, PCV7 00:00:00 [place] [facility] (Prevnar7) Branch DTAP 2003-01-01 Completed [facility] of 00:00:00 [facility] HIB 4 Dose Schedule 2003-01-01 Completed Unive rsity of 00:00:00 [facility] Hep B, Adol or Pedi 2003-01-01 Completed Unive rsity of Dosage 00:00:00 [facility] Pneumococcal 7 2003-01-01 Completed [facility] of Conjugate, PCV7 00:00:00 [place] [facility] (Prevnar7) Branch DTAP 2003-01-01 Completed [facility] of 00:00:00 [facility] HIB 4 Dose Schedule 2003-01-01 Completed Unive rsity of 00:00:00 [facility] Hep B, Adol or Pedi 2003-01-01 Completed [facility]ive rsity of Dosage 00:00:00 [facility] Pneumococcal 7 2003-01-01 Completed [facility] of Conjugate, PCV7 00:00:00 [place] [facility] (Prevnar7) Branch DTAP 2003-01-01 Completed [facility] of 00:00:00 [facility] HIB 4 Dose Schedule 2003-01-01 Completed Unive rsity of 00:00:00 [facility] Hep B, Adol or Pedi 2003-01-01 Completed [facility]ive [facility] of Dosage 00:00:00 [facility] Pneumococcal 7 2003-01-01 Completed [facility] of Conjugate, PCV7 00:00:00 [place] [facility] (Prevnar7) Branch DTAP 2003-01-01 Completed [facility] of 00:00:00 [facility] HIB 4 Dose Schedule 2003-01-01 Completed Unive rsity of 00:00:00 [facility] Hep B, Adol or Pedi 2003-01-01 Completed [facility]ive [facility] of Dosage 00:00:00 [facility] Pneumococcal 7 2003-01-01 Completed [facility] of Conjugate, PCV7 00:00:00 [place] [facility] (Prevnar7) Branch DTAP 2003-01-01 Completed [facility] of 00:00:00 [facility] HIB 4 Dose Schedule 2003-01-01 Completed [facility]ive rs[facility] of 00:00:00 [facility] Hep B, Adol or Pedi 2003-01-01 Completed [facility]ive rs[facility] of Dosage 00:00:00 [facility] Pneumococcal 7 2003-01-01 Completed [facility] of Conjugate, PCV7 00:00:00 [place] [facility] (Prevnar7) Branch DTAP 2003-01-01 Completed [facility] of 00:00:00 [facility] HIB 4 Dose Schedule 2003-01-01 Completed [facility]ive rs[facility] of 00:00:00 [facility] Hep B, Adol or Pedi 2003-01-01 Completed [facility] of Dosage 00:00:00 [facility] Pneumococcal 7 2003-01-01 Completed [facility] of Conjugate, PCV7 00:00:00 [place] [facility] (Prevnar7) Branch DTAP 2003-01-01 Completed [facility] of 00:00:00 [facility] HIB 4 Dose Schedule 2003-01-01 Completed [facility] of 00:00:00 [facility] Hep B, Adol or Pedi 2003-01-01 Completed [facility]ive [facility] of Dosage 00:00:00 [facility] Pneumococcal 7 2003-01-01 Completed [facility] of Conjugate, PCV7 00:00:00 [place] [facility] (Prevnar7) Branch DTAP 2003-01-01 Completed [facility] 00:00:00 [facility] HIB 4 Dose Schedule 2003-01-01 Completed [facility]ive rsity of 00:00:00 [facility] Hep B, Adol or Pedi 2003-01-01 Completed [facility] of Dosage 00:00:00 [facility] Pneumococcal 7 2003-01-01 Completed [facility] of Conjugate, PCV7 00:00:00 [place] [facility] (Prevnar7) Branch DTAP 2003-01-01 Completed [facility] of 00:00:00 [facility] HIB 4 Dose Schedule 2003-01-01 Completed [facility] of 00:00:00 [facility] Hep B, Adol or Pedi 2003-01-01 Completed [facility] Dosage 00[facility]00:00 [facility] [facility] [place] Pneumococcal 7 2003-01-01 Completed [facility] Conjugate, PCV7 00:00:00 [place] [facility] (Pre[facility] DTAP 2003-01-01 Completed [facility] 00:00:00 [facility] HIB 4 Dose Schedule 2003-01-01 Completed [facility] 00:00:00 [facility] [place] Hep B, Adol or Pedi 2003-01-01 Completed [facility] Dosage 00:00:00 [facility] [place] Pneumococcal 7 2003-01-01 Completed [facility] Conjugate, PCV7 00:00:00 [place] [facility] (Prevnar7) [facility] DTAP 2003-01-01 Completed [facility] 00:00:00 [facility] [place] HIB 4 Dose Schedule 2003-01-01 Completed [facility] of 00:00:00 [facility] [place] Hep B, Adol or Pedi 2003-01-01 Completed [facility] Dosage 00:00:00 [facility] [place] Pneumococcal 7 2003-01-01 Completed [facility] Conjugate, PCV7 00:00:00 [place] [facility] (Prevnar7) [facility] DTAP 2003-01-01 Completed [facility] 00:00:00 [facility] [place] HIB 4 Dose Schedule 2003-01-01 Completed [facility] 00:00:00 [facility] [place] Hep B, Adol or Pedi 2003-01-01 Completed [facility] Dosage 00:00:00 [facility] [place] Pneumococcal 7 2003-01-01 Completed [facility] Conjugate, PCV7 00:00:00 [place] [facility] (Prevnar7) [facility] DTAP 2003-01-01 Completed [facility] 00:00:00 [facility] [place] HIB 4 Dose Schedule 2003-01-01 Completed [facility] 00:00:00 [facility] [place] Hep B, Adol or Pedi 2003-01-01 Completed [facility] Dosage 00:00:00 [facility] [place] Pneumococcal 7 2003-01-01 Completed [facility] Conjugate, PCV7 00:00:00 [place] [facility] (Prevnar7) [facility] DTAP 2003-01-01 Completed [facility] 00:00:00 [facility] [place] HIB 4 Dose Schedule 2003-01-01 Completed [facility] 00:00:00 [facility] [place] Hep B, Adol or Pedi 2003-01-01 Completed [facility] Dosage 00:00:00 [facility] [place] Pneumococcal 7 2003-01-01 Completed [facility] Conjugate, PCV7 00:00:00 [place] [facility] (Prevnar7) [facility] DTAP 2003-01-01 Completed [facility] 00:00:00 [facility] [place] HIB 4 Dose Schedule 2003-01-01 Completed [facility] of 00:00:00 [facility] [place] Hep B, Adol or Pedi 2003-01-01 Completed [facility] Dosage 00:00:00 [facility] [place] Pneumococcal 7 2003-01-01 Completed [facility] Conjugate, PCV7 00:00:00 [place] [facility] (Prevnar7) [facility] DTAP 2003-01-01 Completed [facility] 00:00:00 [facility] [place] HIB 4 Dose Schedule 2003-01-01 Completed [facility]ive rs[facility] of 00:00:00 [facility] Hep B, Adol or Pedi 2003-01-01 Completed [facility] of Dosage 00:00:00 [facility] [place] Pneumococcal 7 2003-01-01 Completed [facility] Conjugate, PCV7 00:00:00 [place] [facility] (Prevnar7) [facility] DTAP 2003-01-01 Completed [facility] 00:00:00 [facility] [place] HIB 4 Dose Schedule 2003-01-01 Completed [facility] of 00:00:00 [facility] [place] Hep B, Adol or Pedi 2003-01-01 Completed [facility] of Dosage 00:00:00 [facility] [place] Pneumococcal 7 2003-01-01 Completed [facility] Conjugate, PCV7 00:00:00 [place] [facility] (Prevnar7) [facility] DTAP 2003-01-01 Completed [facility] 00:00:00 [facility] [place] HIB 4 Dose Schedule 2003-01-01 Completed [facility] of 00:00:00 [facility] [place] Hep B, Adol or Pedi 2003-01-01 Completed [facility] Dosage 00:00:00 [facility] [place] Pneumococcal 7 2003-01-01 Completed [facility] Conjugate, PCV7 00:00:00 [place] [facility] (Prevnar7) [facility] DTAP 2003-01-01 Completed [facility] 00:00:00 [facility] [place] HIB 4 Dose Schedule 2003-01-01 Completed [facility] of 00:00:00 [facility] [place] Hep B, Adol or Pedi 2003-01-01 Completed [facility] of Dosage 00:00:00 [facility] [place] Pneumococcal 7 2003-01-01 Completed [facility] Conjugate, PCV7 00:00:00 [place] [facility] (Prevnar7) [facility] DTAP 2003-01-01 Completed [facility] 00:00:00 [facility] [place] HIB 4 Dose Schedule 2003-01-01 Completed [facility] of 00:00:00 [facility] [place] Hep B, Adol or Pedi 2003-01-01 Completed [facility] of Dosage 00:00:00 [facility] [place] Pneumococcal 7 2003-01-01 Completed [facility] Conjugate, PCV7 00:00:00 [place] [facility] (Prevnar7) [facility] DTAP 2003-01-01 Completed [facility] 00:00:00 [facility] [place] HIB 4 Dose Schedule 2003-01-01 Completed [facility] of 00:00:00 [facility] [place] Hep B, Adol or Pedi 2003-01-01 Completed [facility] of Dosage 00:00:00 [facility] [place] Pneumococcal 7 2003-01-01 Completed [facility] Conjugate, PCV7 00:00:00 [place] [facility] (Prevnar7) [facility] DTAP 2003-01-01 Completed [facility] 00:00:00 [facility] [place] HIB 4 Dose Schedule 2003-01-01 Completed [facility] of 00:00:00 [facility] [place] Hep B, Adol or Pedi 2003-01-01 Completed [facility] of Dosage 00:00:00 [facility] [place] Pneumococcal 7 2003-01-01 Completed [facility] Conjugate, PCV7 00:00:00 [place] [facility] (Prevnar7) [facility] DTAP 2003-01-01 Completed [facility] 00:00:00 [facility] [place] HIB 4 Dose Schedule 2003-01-01 Completed [facility] of 00:00:00 [facility] [place] Hep B, Adol or Pedi 2003-01-01 Completed [facility] of Dosage 00:00:00 [facility] [place] Pneumococcal 7 2003-01-01 Completed [facility] Conjugate, PCV7 00:00:00 [place] [facility] (Prevnar7) [facility] DTAP 2003-01-01 Completed [facility] 00:00:00 [facility] [place] HIB 4 Dose Schedule 2003-01-01 Completed [facility] of 00:00:00 [facility] [place] Hep B, Adol or Pedi 2003-01-01 Completed [facility] of Dosage 00:00:00 [facility] [place] Pneumococcal 7 2003-01-01 Completed [facility] Conjugate, PCV7 00:00:00 [place] [facility] (Prevnar7) [facility] DTAP 2003-01-01 Completed [facility] 00:00:00 [facility] [place] HIB 4 Dose Schedule 2003-01-01 Completed [facility] of 00:00:00 [facility] [place] Hep B, Adol or Pedi 2003-01-01 Completed [facility] of Dosage 00:00:00 [facility] [place] Pneumococcal 7 2003-01-01 Completed [facility] Conjugate, PCV7 00:00:00 [place] [facility] (Prevnar7) [facility] DTAP 2003-01-01 Completed [facility] 00:00:00 [facility] [place] HIB 4 Dose Schedule 2003-01-01 Completed [facility] of 00:00:00 [facility] [place] Hep B, Adol or Pedi 2003-01-01 Completed [facility] of Dosage 00:00:00 [facility] [place] Pneumococcal 7 2003-01-01 Completed [facility] Conjugate, PCV7 00:00:00 [place] [facility] (Prevnar7) [facility] DTAP 2003-01-01 Completed [facility] 00:00:00 [facility] [place] HIB 4 Dose Schedule 2003-01-01 Completed [facility] of 00:00:00 [facility] [place] Hep B, Adol or Pedi 2003-01-01 Completed [facility] of Dosage 00:00:00 [facility] [place] Pneumococcal 7 2003-01-01 Completed [facility] Conjugate, PCV7 00:00:00 [place] [facility] (Prevnar7) [facility] DTAP 2003-01-01 Completed [facility] 00:00:00 [facility] [place] HIB 4 Dose Schedule 2003-01-01 Completed [facility] of 00:00:00 [facility] [place] Hep B, Adol or Pedi 2003-01-01 Completed [facility] of Dosage 00:00:00 [facility] [place] Pneumococcal 7 2003-01-01 Completed [facility] Conjugate, PCV7 00:00:00 [place] [facility] (Prevnar7) [facility] DTAP 2003-01-01 Completed [facility] 00:00:00 [facility] [place] HIB 4 Dose Schedule 2003-01-01 Completed [facility] of 00:00:00 [facility] [place] Hep B, Adol or Pedi 2003-01-01 Completed [facility] of Dosage 00:00:00 [facility] [place] Pneumococcal 7 2003-01-01 Completed [facility] Conjugate, PCV7 00:00:00 [place] [facility] (Prevnar7) [facility] DTAP 2003-01-01 Completed [facility] 00:00:00 [facility] [place] HIB 4 Dose Schedule 2003-01-01 Completed [facility] of 00:00:00 [facility] [place] Hep B, Adol or Pedi 2003-01-01 Completed [facility] of Dosage 00:00:00 [facility] [place] Pneumococcal 7 2003-01-01 Completed [facility] Conjugate, PCV7 00:00:00 [place] [facility] (Prevnar7) [facility] DTAP 2003-01-01 Completed [facility] 00:00:00 [facility] [place] HIB 4 Dose Schedule 2003-01-01 Completed [facility] of 00:00:00 [facility] [place] Hep B, Adol or Pedi 2003-01-01 Completed [facility] of Dosage 00:00:00 [facility] [place] Pneumococcal 7 2003-01-01 Completed [facility] Conjugate, PCV7 00:00:00 [place] [facility] (Prevnar7) [facility] DTAP 2003-01-01 Completed [facility] 00:00:00 [facility] [place] HIB 4 Dose Schedule 2003-01-01 Completed [facility] of 00:00:00 [facility] [place] Hep B, Adol or Pedi 2003-01-01 Completed [facility] of Dosage 00:00:00 [facility] [place] Pneumococcal 7 2003-01-01 Completed [facility] Conjugate, PCV7 00:00:00 [place] [facility] (Prevnar7) [facility] DTAP 2003-01-01 Completed [facility] 00:00:00 [facility] [place] HIB 4 Dose Schedule 2003-01-01 Completed [facility] of 00:00:00 [facility] [place] Hep B, Adol or Pedi 2003-01-01 Completed [facility] of Dosage 00:00:00 [facility] [place] Pneumococcal 7 2003-01-01 Completed [facility] Conjugate, PCV7 00:00:00 [place] [facility] (Prevnar7) [facility] DTAP 2003-01-01 Completed [facility] 00:00:00 [facility] [place] HIB 4 Dose Schedule 2003-01-01 Completed [facility] of 00:00:00 [facility] [place] Hep B, Adol or Pedi 2003-01-01 Completed [facility] of Dosage 00:00:00 [facility] [place] Pneumococcal 7 2003-01-01 Completed [facility] Conjugate, PCV7 00:00:00 [place] [facility] (Prevnar7) [facility] DTAP 2003-01-01 Completed [facility] 00:00:00 [facility] [place] HIB 4 Dose Schedule 2003-01-01 Completed [facility] of 00:00:00 [facility] [place] Hep B, Adol or Pedi 2003-01-01 Completed [facility] of Dosage 00:00:00 [facility] [place] Pneumococcal 7 2003-01-01 Completed [facility] Conjugate, PCV7 00:00:00 [place] [facility] (Prevnar7) [facility] DTAP 2003-01-01 Completed [facility] 00:00:00 [facility] [place] HIB 4 Dose Schedule 2003-01-01 Completed [facility] of 00:00:00 [facility] [place] Hep B, Adol or Pedi 2003-01-01 Completed [facility] of Dosage 00:00:00 [facility] [place] Pneumococcal 7 2003-01-01 Completed [facility] Conjugate, PCV7 00:00:00 [place] [facility] (Prevnar7) [facility] DTAP 2003-01-01 Completed [facility] 00:00:00 [facility] [place] HIB 4 Dose Schedule 2003-01-01 Completed [facility] of 00:00:00 [facility] [place] Hep B, Adol or Pedi 2003-01-01 Completed [facility] of Dosage 00:00:00 [facility] [place] Pneumococcal 7 2003-01-01 Completed [facility] Conjugate, PCV7 00:00:00 [place] [facility] (Prevnar7) [facility] DTAP 2003-01-01 Completed [facility] 00:00:00 [facility] [place] HIB 4 Dose Schedule 2003-01-01 Completed [facility] of 00:00:00 [facility] [place] Hep B, Adol or Pedi 2003-01-01 Completed [facility] of Dosage 00:00:00 [facility] [place] Pneumococcal 7 2003-01-01 Completed [facility] Conjugate, PCV7 00:00:00 [place] [facility] (Prevnar7) [facility] DTAP 2003-01-01 Completed [facility] 00:00:00 [facility] [place] HIB 4 Dose Schedule 2003-01-01 Completed [facility] of 00:00:00 [facility] [place] Hep B, Adol or Pedi 2003-01-01 Completed [facility] of Dosage 00:00:00 [facility] [place] Pneumococcal 7 2003-01-01 Completed [facility] Conjugate, PCV7 00:00:00 [place] [facility] (Prevnar7) [facility] DTAP 2003-01-01 Completed [facility] 00:00:00 [facility] [place] HIB 4 Dose Schedule 2003-01-01 Completed [facility] of 00:00:00 [facility] [place] Hep B, Adol or Pedi 2003-01-01 Completed [facility] of Dosage 00:00:00 [facility] [place] Pneumococcal 7 2003-01-01 Completed [facility] Conjugate, PCV7 00:00:00 [place] [facility] (Prevnar7) [facility] DTAP 2003-01-01 Completed [facility] 00:00:00 [facility] [place] HIB 4 Dose Schedule 2003-01-01 Completed [facility] of 00:00:00 [facility] [place] Hep B, Adol or Pedi 2003-01-01 Completed [facility] of Dosage 00:00:00 [facility] [place] Pneumococcal 7 2003-01-01 Completed [facility] Conjugate, PCV7 00:00:00 [place] [facility] (Prevnar7) [facility] DTAP 2003-01-01 Completed [facility] 00:00:00 [facility] [place] HIB 4 Dose Schedule 2003-01-01 Completed [facility] of 00:00:00 [facility] [place] Hep B, Adol or Pedi 2003-01-01 Completed [facility] of Dosage 00:00:00 [facility] [place] Pneumococcal 7 2003-01-01 Completed [facility] Conjugate, PCV7 00:00:00 [place] [facility] (Prevnar7) [facility] DTAP 2003-01-01 Completed [facility] 00:00:00 [facility] [place] HIB 4 Dose Schedule 2003-01-01 Completed [facility] of 00:00:00 [facility] [place] Hep B, Adol or Pedi 2003-01-01 Completed [facility] of Dosage 00:00:00 [facility] [place] Pneumococcal 7 2003-01-01 Completed [facility] Conjugate, PCV7 00:00:00 [place] [facility] (Prevnar7) [facility] DTAP 2003-01-01 Completed [facility] 00:00:00 [facility] [place] HIB 4 Dose Schedule 2003-01-01 Completed [facility] of 00:00:00 [facility] [place] Hep B, Adol or Pedi 2003-01-01 Completed [facility] of Dosage 00:00:00 [facility] [place] Pneumococcal 7 2003-01-01 Completed [facility] Conjugate, PCV7 00:00:00 [place] [facility] (Prevnar7) [facility] DTAP 2002 Completed [facility] 00:00:00 [facility] [place] HIB 4 Dose Schedule 2002 Completed [facility] of 00:00:00 [facility] [place] Pneumococcal 7 2002 Completed [facility] of Conjugate, PCV7 00:00:00 [place] [facility] (Prevnar7) [facility] Polio (IPV/OPV) 2002 Completed [facility] 00:00:00 [facility] [place] DTAP 2002 Completed [facility] 00:00:00 [facility] [place] HIB 4 Dose Schedule 2002 Completed [facility] 00:00:00 [facility] [place] Pneumococcal 7 2002 Completed [facility] Conjugate, PCV7 00:00:00 [place] [facility] (Prevnar7) [facility] Polio (IPV/OPV) 2002 Completed [facility] 00:00:00 [facility] [place] DTAP 2002 Completed [facility] 00:00:00 [facility] [place] HIB 4 Dose Schedule 2002 Completed [facility] of 00:00:00 [facility] [place] Pneumococcal 7 2002 Completed [facility] Conjugate, PCV7 00:00:00 [place] [facility] (Prevnar7) [facility] Polio (IPV/OPV) 2002 Completed [facility] 00:00:00 [facility] [place] DTAP 2002 Completed [facility] 00:00:00 [facility] [place] HIB 4 Dose Schedule 2002 Completed [facility] of 00:00:00 [facility] [place] Pneumococcal 7 2002 Completed [facility] Conjugate, PCV7 00:00:00 [place] [facility] (Prevnar7) [facility] Polio (IPV/OPV) 2002 Completed [facility] 00:00:00 [facility] [place] DTAP 2002 Completed [facility] 00:00:00 [facility] [place] HIB 4 Dose Schedule 2002 Completed [facility] of 00:00:00 [facility] [place] Pneumococcal 7 2002 Completed [facility] Conjugate, PCV7 00:00:00 [place] [facility] (Prevnar7) [facility] Polio (IPV/OPV) 2002 Completed [facility] 00:00:00 [facility] [place] DTAP 2002 Completed [facility] 00:00:00 [facility] [place] HIB 4 Dose Schedule 2002 Completed [facility] of 00:00:00 [facility] [place] Pneumococcal 7 2002 Completed [facility] of Conjugate, PCV7 00:00:00 [place] [facility] (Prevnar7) [facility] Polio (IPV/OPV) 2002 Completed [facility] 00:00:00 [facility] [place] DTAP 2002 Completed [facility] 00:00:00 [facility] [place] HIB 4 Dose Schedule 2002 Completed [facility] of 00:00:00 [facility] [place] Pneumococcal 7 2002 Completed [facility] Conjugate, PCV7 00:00:00 [place] [facility] (Prevnar7) [facility] Polio (IPV/OPV) 2002 Completed [facility] 00:00:00 [facility] [place] DTAP 2002 Completed [facility] 00:00:00 [facility] [place] HIB 4 Dose Schedule 2002 Completed [facility] of 00:00:00 [facility] [place] Pneumococcal 7 2002 Completed [facility] Conjugate, PCV7 00:00:00 [place] [facility] (Prevnar7) [facility] Polio (IPV/OPV) 2002 Completed [facility] 00:00:00 [facility] [place] DTAP 2002 Completed [facility] 00:00:00 [facility] [place] HIB 4 Dose Schedule 2002 Completed [facility] of 00:00:00 [facility] [place] Pneumococcal 7 2002 Completed [facility] Conjugate, PCV7 00:00:00 [place] [facility] (Prevnar7) [facility] Polio (IPV/OPV) 2002 Completed [facility] 00:00:00 [facility] [place] DTAP 2002 Completed [facility] 00:00:00 [facility] [place] HIB 4 Dose Schedule 2002 Completed [facility] of 00:00:00 [facility] [place] Pneumococcal 7 2002 Completed [facility] Conjugate, PCV7 00:00:00 [place] [facility] (Prevnar7) [facility] Polio (IPV/OPV) 2002 Completed [facility] 00:00:00 [facility] [place] DTAP 2002 Completed [facility] 00:00:00 [facility] [place] HIB 4 Dose Schedule 2002 Completed [facility] of 00:00:00 [facility] [place] Pneumococcal 7 2002 Completed [facility] Conjugate, PCV7 00:00:00 [place] [facility] (Prevnar7) [facility] Polio (IPV/OPV) 2002 Completed [facility] 00:00:00 [facility] [place] DTAP 2002 Completed [facility] 00:00:00 [facility] [place] HIB 4 Dose Schedule 2002 Completed [facility] 00:00:00 [facility] [place] Pneumococcal 7 2002 Completed [facility] Conjugate, PCV7 00:00:00 [place] [facility] (Prevnar7) [facility] Polio (IPV/OPV) 2002 Completed [facility] 00:00:00 [facility] [place] DTAP 2002 Completed [facility] 00:00:00 [facility] [place] HIB 4 Dose Schedule 2002 Completed [facility] 00:00:00 [facility] [place] Pneumococcal 7 2002 Completed [facility] Conjugate, PCV7 00:00:00 [place] [facility] (Prevnar7) [facility] Polio (IPV/OPV) 2002 Completed [facility] 00:00:00 [facility] [place] DTAP 2002 Completed [facility] 00:00:00 [facility] [place] HIB 4 Dose Schedule 2002 Completed [facility] of 00:00:00 [facility] [place] Pneumococcal 7 2002 Completed [facility] of Conjugate, PCV7 00:00:00 [facility] ical (Prevnar7) Branch Polio (IPV/OPV) 2002 Completed [facility] 00:00:00 [facility] [place] DTAP 2002 Completed [facility] 00:00:00 [facility] [place] HIB 4 Dose Schedule 2002 Completed [facility] of 00:00:00 [facility] [place] Pneumococcal 7 2002 Completed [facility] of Conjugate, PCV7 00:00:00 [facility] ical (Prevnar7) Branch Polio (IPV/OPV) 2002 Completed [facility] 00:00:00 [facility] [place] DTAP 2002 Completed [facility] 00:00:00 [facility] [place] HIB 4 Dose Schedule 2002 Completed [facility] of 00:00:00 [facility] [place] Pneumococcal 7 2002 Completed [facility] Conjugate, PCV7 00:00:00 [place] [facility] (Prevnar7) [facility] Polio (IPV/OPV) 2002 Completed [facility] 00:00:00 [facility] [place] DTAP 2002 Completed [facility] 00:00:00 [facility] [place] HIB 4 Dose Schedule 2002 Completed [facility] 00:00:00 [facility] [place] Pneumococcal 7 2002 Completed [facility] Conjugate, PCV7 00:00:00 [place] [facility] (Prevnar7) [facility] Polio (IPV/OPV) 2002 Completed [facility] 00:00:00 [facility] [place] DTAP 2002 Completed [facility] 00:00:00 [facility] [place] HIB 4 Dose Schedule 2002 Completed [facility] of 00:00:00 [facility] [place] Pneumococcal 7 2002 Completed [facility] Conjugate, PCV7 00:00:00 [place] [facility] (Prevnar7) [facility] Polio (IPV/OPV) 2002 Completed [facility] 00:00:00 [facility] [place] DTAP 2002 Completed [facility] 00:00:00 [facility] [place] HIB 4 Dose Schedule 2002 Completed [facility] of 00:00:00 [facility] [place] Pneumococcal 7 2002 Completed [facility] Conjugate, PCV7 00:00:00 [place] [facility] (Prevnar7) [facility] Polio (IPV/OPV) 2002 Completed [facility] 00:00:00 [facility] [place] DTAP 2002 Completed [facility] 00:00:00 [facility] [place] HIB 4 Dose Schedule 2002 Completed [facility] 00:00:00 [facility] [place] Pneumococcal 7 2002 Completed [facility] Conjugate, PCV7 00:00:00 [place] [facility] (Prevnar7) [facility] Polio (IPV/OPV) 2002 Completed [facility] 00:00:00 [facility] [place] DTAP 2002 Completed [facility] 00:00:00 [facility] [place] HIB 4 Dose Schedule 2002 Completed [facility] 00:00:00 [facility] Pneumococcal 7 2002 Completed [facility] of Conjugate, PCV7 00:00:00 [place] [facility] (Prevnar7) Branch Polio (IPV/OPV) 2002 Completed [facility] 00:00:00 [facility] DTAP 2002 Completed [facility] 00:00:00 [facility] HIB 4 Dose Schedule 2002 Completed [facility] 00:00:00 [facility] Pneumococcal 7 2002 Completed [facility] Conjugate, PCV7 00:00:00 [place] [facility] (Pre[facility]ar7) [facility] Polio (IPV/OPV) 2002 Completed [facility] 00:00:00 [facility] DTAP 2002 Completed [facility] 00:00:00 [facility] HIB 4 Dose Schedule 2002 Completed [facility] 00:00:00 [facility] Pneumococcal 7 2002 Completed [facility] Conjugate, PCV7 00:00:00 [place] [facility] (Prevnar7) Branch Polio (IPV/OPV) 2002 Completed [facility] 00:00:00 [facility] DTAP 2002 Completed [facility] 00:00:00 [facility] HIB 4 Dose Schedule 2002 Completed [facility] 00:00:00 [facility] Pneumococcal 7 2002 Completed [facility] Conjugate, PCV7 00:00:00 [place] [facility] (Prevnar7) Branch Polio (IPV/OPV) 2002 Completed [facility] 00:00:00 [facility] DTAP 2002 Completed [facility] 00:00:00 [facility] HIB 4 Dose Schedule 2002 Completed [facility] 00:00:00 [facility] Pneumococcal 7 2002 Completed [facility] Conjugate, PCV7 00:00:00 [place] [facility] (Prevnar7) Branch Polio (IPV/OPV) 2002 Completed [facility] 00:00:00 [facility] DTAP 2002 Completed [facility] 00:00:00 [facility] HIB 4 Dose Schedule 2002 Completed [facility] 00:00:00 [facility] Pneumococcal 7 2002 Completed [facility] Conjugate, PCV7 00:00:00 [place] [facility] (Prevnar7) Branch Polio (IPV/OPV) 2002 Completed [facility] 00:00:00 [facility] DTAP 2002 Completed [facility] 00:00:00 [facility] HIB 4 Dose Schedule 2002 Completed [facility] 00:00:00 [facility] Pneumococcal 7 2002 Completed [facility] Conjugate, PCV7 00:00:00 [place] [facility] (Prevnar7) Branch Polio (IPV/OPV) 2002 Completed [facility] 00:00:00 [facility] DTAP 2002 Completed [facility] 00:00:00 [facility] HIB 4 Dose Schedule 2002 Completed [facility] 00:00:00 [facility] Pneumococcal 7 2002 Completed [facility] Conjugate, PCV7 00:00:00 [place] [facility] (Prevnar7) Branch Polio (IPV/OPV) 2002 Completed [facility] 00:00:00 [facility] DTAP 2002 Completed [facility] 00:00:00 [facility] HIB 4 Dose Schedule 2002 Completed [facility] 00:00:00 [facility] Pneumococcal 7 2002 Completed [facility] Conjugate, PCV7 00:00:00 [place] [facility] (Prevnar7) Branch Polio (IPV/OPV) 2002 Completed [facility] 00:00:00 [facility] DTAP 2002 Completed [facility] 00:00:00 [facility] HIB 4 Dose Schedule 2002 Completed [facility] 00:00:00 [facility] Pneumococcal 7 2002 Completed [facility] Conjugate, PCV7 00:00:00 [place] [facility] (Prevnar7) Branch Polio (IPV/OPV) 2002 Completed [facility] 00:00:00 [facility] DTAP 2002 Completed [facility] 00:00:00 [facility] HIB 4 Dose Schedule 2002 Completed [facility] 00:00:00 [facility] Pneumococcal 7 2002 Completed [facility] Conjugate, PCV7 00:00:00 [place] [facility] (Prevnar7) Branch Polio (IPV/OPV) 2002 Completed [facility] 00:00:00 [facility] DTAP 2002 Completed [facility] 00:00:00 [facility] HIB 4 Dose Schedule 2002 Completed [facility] 00:00:00 [facility] Pneumococcal 7 2002 Completed [facility] Conjugate, PCV7 00:00:00 [place] [facility] (Prevnar7) Branch Polio (IPV/OPV) 2002 Completed [facility] 00:00:00 [facility] DTAP 2002 Completed [facility] 00:00:00 [facility] HIB 4 Dose Schedule 2002 Completed [facility] 00:00:00 [facility] Pneumococcal 7 2002 Completed [facility] Conjugate, PCV7 00:00:00 [place] [facility] (Prevnar7) Branch Polio (IPV/OPV) 2002 Completed [facility] 00:00:00 [facility] DTAP 2002 Completed [facility] 00:00:00 [facility] HIB 4 Dose Schedule 2002 Completed [facility] 00:00:00 [facility] Pneumococcal 7 2002 Completed [facility] Conjugate, PCV7 00:00:00 [place] [facility] (Prevnar7) Branch Polio (IPV/OPV) 2002 Completed [facility] 00:00:00 [facility] DTAP 2002 Completed [facility] 00:00:00 [facility] HIB 4 Dose Schedule 2002 Completed [facility] 00:00:00 [facility] Pneumococcal 7 2002 Completed [facility] Conjugate, PCV7 00:00:00 [place] [facility] (Prevnar7) Branch Polio (IPV/OPV) 2002 Completed [facility] 00:00:00 [facility] DTAP 2002 Completed [facility] 00:00:00 [facility] HIB 4 Dose Schedule 2002 Completed [facility] 00:00:00 [facility] Pneumococcal 7 2002 Completed [facility] Conjugate, PCV7 00:00:00 [place] [facility] (Prevnar7) Branch Polio (IPV/OPV) 2002 Completed [facility] 00:00:00 [facility] DTAP 2002 Completed [facility] 00:00:00 [facility] HIB 4 Dose Schedule 2002 Completed [facility] 00:00:00 [facility] Pneumococcal 7 2002 Completed [facility] Conjugate, PCV7 00:00:00 [place] [facility] (Prevnar7) Branch Polio (IPV/OPV) 2002 Completed [facility] 00:00:00 [facility] DTAP 2002 Completed [facility] 00:00:00 [facility] HIB 4 Dose Schedule 2002 Completed [facility] 00:00:00 [facility] Pneumococcal 7 2002 Completed [facility] Conjugate, PCV7 00:00:00 [place] [facility] (Prevnar7) Branch Polio (IPV/OPV) 2002 Completed [facility] 00:00:00 [facility] DTAP 2002 Completed [facility] 00:00:00 [facility] HIB 4 Dose Schedule 2002 Completed [facility] 00:00:00 [facility] Pneumococcal 7 2002 Completed [facility] Conjugate, PCV7 00:00:00 [place] [facility] (Prevnar7) Branch Polio (IPV/OPV) 2002 Completed [facility] 00:00:00 [facility] DTAP 2002 Completed [facility] 00:00:00 [facility] HIB 4 Dose Schedule 2002 Completed [facility] 00:00:00 [facility] Pneumococcal 7 2002 Completed [facility] Conjugate, PCV7 00:00:00 [place] [facility] (Prevnar7) Branch Polio (IPV/OPV) 2002 Completed [facility] 00:00:00 [facility] DTAP 2002 Completed [facility] 00:00:00 [facility] HIB 4 Dose Schedule 2002 Completed [facility] 00:00:00 [facility] Pneumococcal 7 2002 Completed [facility] Conjugate, PCV7 00:00:00 [place] [facility] (Prevnar7) Branch Polio (IPV/OPV) 2002 Completed [facility] 00:00:00 [facility] DTAP 2002 Completed [facility] 00:00:00 [facility] HIB 4 Dose Schedule 2002 Completed [facility] 00:00:00 [facility] Pneumococcal 7 2002 Completed [facility] Conjugate, PCV7 00:00:00 [place] [facility] (Prevnar7) Branch Polio (IPV/OPV) 2002 Completed [facility] 00:00:00 [facility] DTAP 2002 Completed [facility] 00:00:00 [facility] HIB 4 Dose Schedule 2002 Completed [facility] 00:00:00 [facility] Pneumococcal 7 2002 Completed [facility] Conjugate, PCV7 00:00:00 [place] [facility] (Prevnar7) Branch Polio (IPV/OPV) 2002 Completed [facility] 00:00:00 [facility] DTAP 2002 Completed [facility] 00:00:00 [facility] HIB 4 Dose Schedule 2002 Completed [facility] 00:00:00 [facility] Pneumococcal 7 2002 Completed [facility] Conjugate, PCV7 00:00:00 [place] [facility] (Prevnar7) Branch Polio (IPV/OPV) 2002 Completed [facility] 00:00:00 [facility] DTAP 2002 Completed [facility] 00:00:00 [facility] HIB 4 Dose Schedule 2002 Completed [facility] 00:00:00 [facility] Pneumococcal 7 2002 Completed [facility] Conjugate, PCV7 00:00:00 [place] [facility] (Prevnar7) Branch Polio (IPV/OPV) 2002 Completed [facility] 00:00:00 [facility] DTAP 2002 Completed [facility] 00:00:00 [facility] HIB 4 Dose Schedule 2002 Completed [facility] 00:00:00 [facility] Pneumococcal 7 2002 Completed [facility] Conjugate, PCV7 00:00:00 [place] [facility] (Prevnar7) Branch Polio (IPV/OPV) 2002 Completed [facility] 00:00:00 [facility] DTAP 2002 Completed [facility] 00:00:00 [facility] HIB 4 Dose Schedule 2002 Completed [facility] 00:00:00 [facility] Pneumococcal 7 2002 Completed [facility] Conjugate, PCV7 00:00:00 [place] [facility] (Prevnar7) Branch Polio (IPV/OPV) 2002 Completed [facility] 00:00:00 [facility] DTAP 2002 Completed [facility] 00:00:00 [facility] HIB 4 Dose Schedule 2002 Completed [facility] 00:00:00 [facility] Pneumococcal 7 2002 Completed [facility] Conjugate, PCV7 00:00:00 [place] [facility] (Prevnar7) Branch Polio (IPV/OPV) 2002 Completed [facility] 00:00:00 [facility] DTAP 2002 Completed [facility] 00:00:00 [facility] HIB 4 Dose Schedule 2002 Completed [facility] 00:00:00 [facility] Pneumococcal 7 2002 Completed [facility] Conjugate, PCV7 00:00:00 [place] [facility] (Prevnar7) Branch Polio (IPV/OPV) 2002 Completed [facility] 00:00:00 [facility] DTAP 2002 Completed [facility] 00:00:00 [facility] HIB 4 Dose Schedule 2002 Completed [facility] 00:00:00 [facility] Pneumococcal 7 2002 Completed [facility] Conjugate, PCV7 00:00:00 [place] [facility] (Prevnar7) Branch Polio (IPV/OPV) 2002 Completed [facility] 00:00:00 [facility] DTAP 2002 Completed [facility] 00:00:00 [facility] HIB 4 Dose Schedule 2002 Completed [facility] 00:00:00 [facility] Pneumococcal 7 2002 Completed [facility] Conjugate, PCV7 00:00:00 [place] [facility] (Prevnar7) Branch Polio (IPV/OPV) 2002 Completed [facility] 00:00:00 [facility] DTAP 2002 Completed [facility] 00:00:00 [facility] HIB 4 Dose Schedule 2002 Completed [facility] 00:00:00 [facility] Pneumococcal 7 2002 Completed [facility] Conjugate, PCV7 00:00:00 [place] [facility] (Prevnar7) Branch Polio (IPV/OPV) 2002 Completed [facility] 00:00:00 [facility] DTAP 2002 Completed [facility] 00:00:00 [facility] HIB 4 Dose Schedule 2002 Completed [facility] 00:00:00 [facility] Pneumococcal 7 2002 Completed [facility] Conjugate, PCV7 00:00:00 [place] [facility] (Prevnar7) Branch Polio (IPV/OPV) 2002 Completed [facility] 00:00:00 [facility] DTAP 2002 Completed [facility] 00:00:00 [facility] HIB 4 Dose Schedule 2002 Completed [facility] 00:00:00 [facility] Pneumococcal 7 2002 Completed [facility] Conjugate, PCV7 00:00:00 [place] [facility] (Prevnar7) Branch Polio (IPV/OPV) 2002 Completed [facility] 00:00:00 [facility] DTAP 2002 Completed [facility] 00:00:00 [facility] HIB 4 Dose Schedule 2002 Completed [facility] 00:00:00 [facility] Pneumococcal 7 2002 Completed [facility] Conjugate, PCV7 00:00:00 [place] [facility] (Prevnar7) Branch Polio (IPV/OPV) 2002 Completed [facility] 00:00:00 [facility] DTAP 2002 Completed [facility] 00:00:00 [facility] HIB 4 Dose Schedule 2002 Completed [facility] 00:00:00 [facility] Pneumococcal 7 2002 Completed [facility] Conjugate, PCV7 00:00:00 [place] [facility] (Prevnar7) Branch Polio (IPV/OPV) 2002 Completed [facility] 00:00:00 [facility] DTAP 2002 Completed [facility] 00:00:00 [facility] HIB 4 Dose Schedule 2002 Completed [facility] 00:00:00 [facility] Pneumococcal 7 2002 Completed [facility] Conjugate, PCV7 00:00:00 [place] [facility] (Prevnar7) Branch Polio (IPV/OPV) 2002 Completed [facility] 00:00:00 [facility] DTAP 2002 Completed [facility] 00:00:00 [facility] HIB 4 Dose Schedule 2002 Completed [facility] 00:00:00 [facility] Pneumococcal 7 2002 Completed [facility] Conjugate, PCV7 00:00:00 [place] [facility] (Prevnar7) Branch Polio (IPV/OPV) 2002 Completed [facility] 00:00:00 [facility] DTAP 2002 Completed [facility] 00:00:00 [facility] HIB 4 Dose Schedule 2002 Completed [facility] 00:00:00 [facility] Pneumococcal 7 2002 Completed [facility] Conjugate, PCV7 00:00:00 [place] [facility] (Prevnar7) Branch Polio (IPV/OPV) 2002 Completed [facility] 00:00:00 [facility] DTAP 2002 Completed [facility] 00:00:00 [facility] HIB 4 Dose Schedule 2002 Completed [facility] 00:00:00 [facility] Pneumococcal 7 2002 Completed [facility] Conjugate, PCV7 00:00:00 [place] [facility] (Prevnar7) Branch Polio (IPV/OPV) 2002 Completed [facility] 00:00:00 [facility] DTAP 2002 Completed [facility] 00:00:00 [facility] HIB 4 Dose Schedule 2002 Completed [facility] 00:00:00 [facility] Pneumococcal 7 2002 Completed [facility] Conjugate, PCV7 00:00:00 [place] [facility] (Prevnar7) Branch Polio (IPV/OPV) 2002 Completed [facility] 00:00:00 [facility] DTAP 2002 Completed [facility] 00:00:00 [facility] HIB 4 Dose Schedule 2002 Completed [facility] 00:00:00 [facility] Pneumococcal 7 2002 Completed [facility] Conjugate, PCV7 00:00:00 [place] [facility] (Prevnar7) Branch Polio (IPV/OPV) 2002 Completed [facility] 00:00:00 [facility] DTAP 2002 Completed [facility] 00:00:00 [facility] HIB 4 Dose Schedule 2002 Completed [facility] 00:00:00 [facility] Pneumococcal 7 2002 Completed [facility] Conjugate, PCV7 00:00:00 [place] [facility] (Prevnar7) Branch Polio (IPV/OPV) 2002 Completed [facility] 00:00:00 [facility] DTAP 2002 Completed [facility] 00:00:00 [facility] HIB 4 Dose Schedule 2002 Completed [facility] 00:00:00 [facility] Pneumococcal 7 2002 Completed [facility] Conjugate, PCV7 00:00:00 [place] [facility] (Prevnar7) Branch Polio (IPV/OPV) 2002 Completed [facility] 00:00:00 [facility] DTAP 2002 Completed [facility] 00:00:00 [facility] HIB 4 Dose Schedule 2002 Completed [facility] 00:00:00 [facility] Pneumococcal 7 2002 Completed [facility] Conjugate, PCV7 00:00:00 [place] [facility] (Prevnar7) Branch Polio (IPV/OPV) 2002 Completed [facility] 00:00:00 [facility] DTAP 2002 Completed [facility] 00:00:00 [facility] HIB 4 Dose Schedule 2002 Completed [facility] 00:00:00 [facility] Pneumococcal 7 2002 Completed [facility] Conjugate, PCV7 00:00:00 [place] [facility] (Prevnar7) Branch Polio (IPV/OPV) 2002 Completed [facility] 00:00:00 [facility] DTAP 2002 Completed [facility] 00:00:00 [facility] HIB 4 Dose Schedule 2002 Completed [facility] 00:00:00 [facility] Pneumococcal 7 2002 Completed [facility] Conjugate, PCV7 00:00:00 [place] [facility] (Prevnar7) Branch Polio (IPV/OPV) 2002 Completed [facility] 00:00:00 [facility] DTAP 2002 Completed [facility] 00:00:00 [facility] HIB 4 Dose Schedule 2002 Completed [facility] 00:00:00 [facility] Pneumococcal 7 2002 Completed [facility] Conjugate, PCV7 00:00:00 [place] [facility] (Prevnar7) Branch Polio (IPV/OPV) 2002 Completed [facility] 00:00:00 [facility] DTAP 2002 Completed [facility] 00:00:00 [facility] HIB 4 Dose Schedule 2002 Completed [facility] 00:00:00 [facility] Pneumococcal 7 2002 Completed [facility] Conjugate, PCV7 00:00:00 [place] [facility] (Prevnar7) Branch Polio (IPV/OPV) 2002 Completed [facility] 00:00:00 [facility] DTAP 2002 Completed [facility] 00:00:00 [facility] HIB 4 Dose Schedule 2002 Completed [facility] 00:00:00 [facility] Pneumococcal 7 2002 Completed [facility] Conjugate, PCV7 00:00:00 [place] [facility] (Prevnar7) Branch Polio (IPV/OPV) 2002 Completed [facility] 00:00:00 [facility] DTAP 2002 Completed [facility] 00:00:00 [facility] HIB 4 Dose Schedule 2002 Completed [facility] 00:00:00 [facility] Pneumococcal 7 2002 Completed [facility] Conjugate, PCV7 00:00:00 [place] [facility] (Prevnar7) Branch Polio (IPV/OPV) 2002 Completed [facility] 00:00:00 [facility] DTAP 2002 Completed [facility] 00:00:00 [facility] HIB 4 Dose Schedule 2002 Completed [facility] 00:00:00 [facility] Pneumococcal 7 2002 Completed [facility] Conjugate, PCV7 00:00:00 [place] [facility] (Prevnar7) Branch Polio (IPV/OPV) 2002 Completed [facility] 00:00:00 [facility] DTAP 2002 Completed [facility] 00:00:00 [facility] HIB 4 Dose Schedule 2002 Completed [facility] 00:00:00 [facility] Pneumococcal 7 2002 Completed [facility] Conjugate, PCV7 00:00:00 [place] [facility] (Prevnar7) Branch Polio (IPV/OPV) 2002 Completed [facility] 00:00:00 [facility] DTAP 2002 Completed [facility] 00:00:00 [facility] HIB 4 Dose Schedule 2002 Completed [facility] 00:00:00 [facility] Pneumococcal 7 2002 Completed [facility] Conjugate, PCV7 00:00:00 [place] [facility] (Prevnar7) Branch Polio (IPV/OPV) 2002 Completed [facility] 00:00:00 [facility] DTAP 2002 Completed [facility] 00:00:00 [facility] HIB 4 Dose Schedule 2002 Completed [facility] 00:00:00 [facility] Pneumococcal 7 2002 Completed [facility] Conjugate, PCV7 00:00:00 [facility] ical (Prevnar7) Branch Polio (IPV/OPV) 2002 Completed [facility] 00:00:00 [facility] DTAP 2002 Completed [facility] 00:00:00 [facility] HIB 4 Dose Schedule 2002 Completed [facility] 00:00:00 [facility] Pneumococcal 7 2002 Completed [facility] Conjugate, PCV7 00:00:00 [facility] ical (Prevnar7) Branch Polio (IPV/OPV) 2002 Completed [facility] 00:00:00 [facility] DTAP 2002 Completed [facility] 00:00:00 [facility] HIB 4 Dose Schedule 2002 Completed [facility] 00:00:00 [facility] Pneumococcal 7 2002 Completed [facility] Conjugate, PCV7 00:00:00 [facility] ical (Prevnar7) Branch Polio (IPV/OPV) 2002 Completed [facility] 00:00:00 [facility] DTAP 2002 Completed [facility] 00:00:00 [facility] HIB 4 Dose Schedule 2002 Completed [facility] 00:00:00 [facility] Hep B, Adol or Pedi 2002 Completed [facility] Dosage 00:00:00 [facility] Polio (IPV/OPV) 2002 Completed [facility] 00:00:00 [facility] DTAP 2002 Completed [facility] 00:00:00 [facility] HIB 4 Dose Schedule 2002 Completed [facility] 00[facility]00 [facility] [facility] [place] Hep B, Adol or Pedi 2002 Completed [facility] Dosage 00:00:00 [facility] Polio (IPV/OPV) 2002 Completed [facility]00 [facility] DTAP 2002 Completed [facility] 00:00:00 [facility] HIB 4 Dose Schedule 2002 Completed [facility] 00:00:00 [facility] Hep B, Adol or Pedi 2002 Completed [facility] Dosage 00:00:00 [facility] Polio (IPV/OPV) 2002 Completed [facility] 00:00:00 [facility] DTAP 2002 Completed [facility] 00:00:00 [facility] HIB 4 Dose Schedule 2002 Completed [facility] 00:00:00 [facility] Hep B, Adol or Pedi 2002 Completed [facility] Dosage 00:00:00 [facility] Polio (IPV/OPV) 2002 Completed [facility] 00[facility]00:00 [facility] DTAP 2002 Completed [facility] 00:00:00 [facility] HIB 4 Dose Schedule 2002 Completed [facility] 00:[facility]:00 [facility] Hep B, Adol or Pedi 2002 Completed [facility] Dosage 00:00:00 [facility] Polio (IPV/OPV) 2002 Completed [facility] 00[facility]00:00 [facility] DTAP 2002 Completed [facility] 00:00:00 [facility] HIB 4 Dose Schedule 2002 Completed [facility] 00:00:00 [facility] Hep B, Adol or Pedi 2002 Completed [facility] Dosage 00:00:00 [facility] Polio (IPV/OPV) 2002 Completed [facility] 00:00:00 [facility] DTAP 2002 Completed [facility] 00[facility]00:00 [facility] HIB 4 Dose Schedule 2002 Completed [facility] 00:00:00 [facility] Hep B, Adol or Pedi 2002 Completed [facility] Dosage 00:00:00 [facility] Polio (IPV/OPV) 2002 Completed [facility] 00[facility]00:00 [facility] DTAP 2002 Completed [facility] 00:00:00 [facility] HIB 4 Dose Schedule 2002 Completed [facility] 00:00:00 [facility] Hep B, Adol or Pedi 2002 Completed [facility] Dosage 00:00:00 [facility] Polio (IPV/OPV) 2002 Completed [facility] 00:00:00 [facility] DTAP 2002 Completed [facility] 00:00:00 [facility] HIB 4 Dose Schedule 2002 Completed [facility] 00:00:00 [facility] Hep B, Adol or Pedi 2002 Completed [facility] Dosage 00:00:00 [facility] Polio (IPV/OPV) 2002 Completed [facility] 00:00:00 [facility] DTAP 2002 Completed [facility] 00:00:00 [facility] HIB 4 Dose Schedule 2002 Completed [facility] 00:00:00 [facility] Hep B, Adol or Pedi 2002 Completed [facility] Dosage 00:00:00 [facility] Polio (IPV/OPV) 2002 Completed [facility] 00:00:00 [facility] DTAP 2002 Completed [facility] 00:00:00 [facility] HIB 4 Dose Schedule 2002 Completed [facility] 00:00:00 [facility] Hep B, Adol or Pedi 2002 Completed [facility] Dosage 00:00:00 [facility] Polio (IPV/OPV) 2002 Completed [facility] 00:00:00 [facility] DTAP 2002 Completed [facility] 00:00:00 [facility] HIB 4 Dose Schedule 2002 Completed [facility] 00:00:00 [facility] Hep B, Adol or Pedi 2002 Completed [facility] Dosage 00:00:00 [facility] Polio (IPV/OPV) 2002 Completed [facility] 00:00:00 [facility] DTAP 2002 Completed [facility] 00:00:00 [facility] HIB 4 Dose Schedule 2002 Completed [facility] 00:00:00 [facility] Hep B, Adol or Pedi 2002 Completed [facility] Dosage 00:00:00 [facility] Polio (IPV/OPV) 2002 Completed [facility] 00:00:00 [facility] DTAP 2002 Completed [facility] 00:00:00 [facility] HIB 4 Dose Schedule 2002 Completed [facility] 00:00:00 [facility] Hep B, Adol or Pedi 2002 Completed [facility] Dosage 00:00:00 [facility] Polio (IPV/OPV) 2002 Completed [facility] 00[facility]00:00 [facility] DTAP 2002 Completed [facility] 00:00:00 [facility] HIB 4 Dose Schedule 2002 Completed [facility] 00:00:00 [facility] Hep B, Adol or Pedi 2002 Completed [facility] Dosage 00:00:00 [facility] Polio (IPV/OPV) 2002 Completed [facility] 00[facility]00:00 [facility] DTAP 2002 Completed [facility] 00:00:00 [facility] HIB 4 Dose Schedule 2002 Completed [facility] 00[facility]00:00 [facility] Hep B, Adol or Pedi 2002 Completed [facility] Dosage 00:00:00 [facility] Polio (IPV/OPV) 2002 Completed [facility] 00:00:00 [facility] DTAP 2002 Completed [facility] 00:00:00 [facility] HIB 4 Dose Schedule 2002 Completed [facility] 00:00:00 [facility] Hep B, Adol or Pedi 2002 Completed [facility] Dosage 00:00:00 [facility] Polio (IPV/OPV) 2002 Completed [facility] 00:00:00 [facility] DTAP 2002 Completed [facility] 00:00:00 [facility] HIB 4 Dose Schedule 2002 Completed [facility] 00:00:00 [facility] Hep B, Adol or Pedi 2002 Completed [facility] Dosage 00:00:00 [facility] Polio (IPV/OPV) 2002 Completed [facility] 00:00:00 [facility] DTAP 2002 Completed [facility] 00:00:00 [facility] HIB 4 Dose Schedule 2002 Completed [facility] 00:00:00 [facility] Hep B, Adol or Pedi 2002 Completed [facility] Dosage 00:00:00 [facility] Polio (IPV/OPV) 2002 Completed [facility] 00:[facility]:00 [facility] DTAP 2002 Completed [facility] 00:00:00 [facility] HIB 4 Dose Schedule 2002 Completed [facility] 00:00:00 [facility] Hep B, Adol or Pedi 2002 Completed [facility] Dosage 00:00:00 [facility] Polio (IPV/OPV) 2002 Completed [facility] 00:00:00 [facility] DTAP 2002 Completed [facility] 00[facility]00:00 [facility] HIB 4 Dose Schedule 2002 Completed [facility] 00:00:00 [facility] Hep B, Adol or Pedi 2002 Completed [facility] Dosage 00:00:00 [facility] Polio (IPV/OPV) 2002 Completed [facility] 00:00:00 [facility] DTAP 2002 Completed [facility] 00:00:00 [facility] HIB 4 Dose Schedule 2002 Completed [facility] 00:00:00 [facility] Hep B, Adol or Pedi 2002 Completed [facility] Dosage 00:00:00 [facility] Polio (IPV/OPV) 2002 Completed [facility] 00:[facility]:00 [facility] DTAP 2002 Completed [facility] 00:00:00 [facility] HIB 4 Dose Schedule 2002 Completed [facility] 00:00:00 [facility] Hep B, Adol or Pedi 2002 Completed [facility] Dosage 00:00:00 [facility] Polio (IPV/OPV) 2002 Completed [facility] 00:00:00 [facility] DTAP 2002 Completed [facility] 00:00:00 [facility] HIB 4 Dose Schedule 2002 Completed [facility] 00:00:00 [facility] Hep B, Adol or Pedi 2002 Completed [facility] Dosage 00:00:00 [facility] Polio (IPV/OPV) 2002 Completed [facility] 00:00:00 [facility] DTAP 2002 Completed [facility] 00:00:00 [facility] HIB 4 Dose Schedule 2002 Completed [facility] 00:00:00 [facility] Hep B, Adol or Pedi 2002 Completed [facility] Dosage 00:00:00 [facility] Polio (IPV/OPV) 2002 Completed [facility] 00:00:00 [facility] DTAP 2002 Completed [facility] 00:00:00 [facility] HIB 4 Dose Schedule 2002 Completed [facility] 00[facility]:00 [facility] Hep B, Adol or Pedi 2002 Completed [facility] Dosage 00:00:00 [facility] Polio (IPV/OPV) 2002 Completed [facility] 00[facility]00:00 [facility] DTAP 2002 Completed [facility] 00:00:00 [facility] HIB 4 Dose Schedule 2002 Completed [facility] 00[facility]:00 [facility] Hep B, Adol or Pedi 2002 Completed [facility] Dosage 00:00:00 [facility] Polio (IPV/OPV) 2002 Completed [facility] 00:00:00 [facility] DTAP 2002 Completed [facility] 00[facility]00:00 [facility] HIB 4 Dose Schedule 2002 Completed [facility] 00:00:00 [facility] Hep B, Adol or Pedi 2002 Completed [facility] Dosage 00:00:00 [facility] Polio (IPV/OPV) 2002 Completed [facility] 00:00:00 [facility] DTAP 2002 Completed [facility] 00:00:00 [facility] HIB 4 Dose Schedule 2002 Completed [facility] 00:00:00 [facility] Hep B, Adol or Pedi 2002 Completed [facility] Dosage 00:00:00 [facility] Polio (IPV/OPV) 2002 Completed [facility] 00:00:00 [facility] DTAP 2002 Completed [facility] 00:00:00 [facility] HIB 4 Dose Schedule 2002 Completed [facility] 00:00:00 [facility] Hep B, Adol or Pedi 2002 Completed [facility] Dosage 00:00:00 [facility] Polio (IPV/OPV) 2002 Completed [facility] 00:00:00 [facility] DTAP 2002 Completed [facility] 00:00:00 [facility] HIB 4 Dose Schedule 2002 Completed [facility] 00:00:00 [facility] Hep B, Adol or Pedi 2002 Completed [facility] Dosage 00:00:00 [facility] Polio (IPV/OPV) 2002 Completed [facility] 00[facility]00:00 [facility] DTAP 2002 Completed [facility] 00:00:00 [facility] HIB 4 Dose Schedule 2002 Completed [facility] 00[facility]00:00 [facility] Hep B, Adol or Pedi 2002 Completed [facility] Dosage 00:00:00 [facility] Polio (IPV/OPV) 2002 Completed [facility] 00[facility]00:00 [facility] DTAP 2002 Completed [facility] 00:00:00 [facility] HIB 4 Dose Schedule 2002 Completed [facility] 00[facility]:00 [facility] Hep B, Adol or Pedi 2002 Completed [facility] Dosage 00:00:00 [facility] Polio (IPV/OPV) 2002 Completed [facility] 00:00:00 [facility] DTAP 2002 Completed [facility] 00:00:00 [facility] HIB 4 Dose Schedule 2002 Completed [facility] 00:00:00 [facility] Hep B, Adol or Pedi 2002 Completed [facility] Dosage 00:00:00 [facility] Polio (IPV/OPV) 2002 Completed [facility] 00:00:00 [facility] DTAP 2002 Completed [facility] 00:00:00 [facility] HIB 4 Dose Schedule 2002 Completed [facility] 00:00:00 [facility] Hep B, Adol or Pedi 2002 Completed [facility] Dosage 00:00:00 [facility] Polio (IPV/OPV) 2002 Completed [facility] 00:00:00 [facility] DTAP 2002 Completed [facility] 00:00:00 [facility] HIB 4 Dose Schedule 2002 Completed [facility] 00:00:00 [facility] Hep B, Adol or Pedi 2002 Completed [facility] Dosage 00:00:00 [facility] Polio (IPV/OPV) 2002 Completed [facility] 00:00:00 [facility] DTAP 2002 Completed [facility] 00:00:00 [facility] HIB 4 Dose Schedule 2002 Completed [facility] 00:00:00 [facility] Hep B, Adol or Pedi 2002 Completed [facility] Dosage 00:00:00 [facility] Polio (IPV/OPV) 2002 Completed [facility] 00[facility]00:00 [facility] DTAP 2002 Completed [facility] 00:00:00 [facility] HIB 4 Dose Schedule 2002 Completed [facility] 00:00:00 [facility] Hep B, Adol or Pedi 2002 Completed [facility] Dosage 00:00:00 [facility] Polio (IPV/OPV) 2002 Completed [facility] 00:00:00 [facility] DTAP 2002 Completed [facility] 00:00:00 [facility] HIB 4 Dose Schedule 2002 Completed [facility] 00[facility]00:00 [facility] Hep B, Adol or Pedi 2002 Completed [facility] Dosage 00:00:00 [facility] Polio (IPV/OPV) 2002 Completed [facility] 00:00:00 [facility] DTAP 2002 Completed [facility] 00:00:00 [facility] HIB 4 Dose Schedule 2002 Completed [facility] 00:00:00 [facility] Hep B, Adol or Pedi 2002 Completed [facility] Dosage 00:00:00 [facility] Polio (IPV/OPV) 2002 Completed [facility] 00:00:00 [facility] DTAP 2002 Completed [facility] 00:00:00 [facility] HIB 4 Dose Schedule 2002 Completed [facility] 00:00:00 [facility] Hep B, Adol or Pedi 2002 Completed [facility] Dosage 00:00:00 [facility] Polio (IPV/OPV) 2002 Completed [facility] 00:00:00 [facility] DTAP 2002 Completed [facility] 00:00:00 [facility] HIB 4 Dose Schedule 2002 Completed [facility] 00:00:00 [facility] Hep B, Adol or Pedi 2002 Completed [facility] Dosage 00:00:00 [facility] Polio (IPV/OPV) 2002 Completed [facility] 00:00:00 [facility] DTAP 2002 Completed [facility] 00:00:00 [facility] HIB 4 Dose Schedule 2002 Completed [facility] 00:00:00 [facility] Hep B, Adol or Pedi 2002 Completed [facility] Dosage 00:00:00 [facility] Polio (IPV/OPV) 2002 Completed [facility] 00:00:00 [facility] DTAP 2002 Completed [facility] 00:00:00 [facility] HIB 4 Dose Schedule 2002 Completed [facility] 00:00:00 [facility] Hep B, Adol or Pedi 2002 Completed [facility] Dosage 00:00:00 [facility] Polio (IPV/OPV) 2002 Completed [facility] 00:00:00 [facility] DTAP 2002 Completed [facility] 00:00:00 [facility] HIB 4 Dose Schedule 2002 Completed [facility] 00:00:00 [facility] Hep B, Adol or Pedi 2002 Completed [facility] Dosage 00:00:00 [facility] Polio (IPV/OPV) 2002 Completed [facility] 00:00:00 [facility] DTAP 2002 Completed [facility] 00:00:00 [facility] HIB 4 Dose Schedule 2002 Completed [facility] 00:00:00 [facility] Hep B, Adol or Pedi 2002 Completed [facility] Dosage 00:00:00 [facility] Polio (IPV/OPV) 2002 Completed [facility] 00:00:00 [facility] DTAP 2002 Completed [facility] 00:00:00 [facility] HIB 4 Dose Schedule 2002 Completed [facility] 00:00:00 [facility] Hep B, Adol or Pedi 2002 Completed [facility] Dosage 00:00:00 [facility] Polio (IPV/OPV) 2002 Completed [facility] 00:00:00 [facility] DTAP 2002 Completed [facility] 00:00:00 [facility] HIB 4 Dose Schedule 2002 Completed [facility] 00[facility]00:00 [facility] Hep B, Adol or Pedi 2002 Completed [facility] Dosage 00:00:00 [facility] Polio (IPV/OPV) 2002 Completed [facility] 00:00:00 [facility] DTAP 2002 Completed [facility] 00:00:00 [facility] HIB 4 Dose Schedule 2002 Completed [facility] 00:00:00 [facility] Hep B, Adol or Pedi 2002 Completed [facility] Dosage 00:00:00 [facility] Polio (IPV/OPV) 2002 Completed [facility] 00:00:00 [facility] DTAP 2002 Completed [facility] 00:00:00 [facility] HIB 4 Dose Schedule 2002 Completed [facility] 00:00:00 [facility] Hep B, Adol or Pedi 2002 Completed [facility] Dosage 00:00:00 [facility] Polio (IPV/OPV) 2002 Completed [facility] 00:00:00 [facility] DTAP 2002 Completed [facility] 00:00:00 [facility] HIB 4 Dose Schedule 2002 Completed [facility] 00[facility]00:00 [facility] Hep B, Adol or Pedi 2002 Completed [facility] Dosage 00:00:00 [facility] Polio (IPV/OPV) 2002 Completed [facility] 00:00:00 [facility] DTAP 2002 Completed [facility] 00:00:00 [facility] HIB 4 Dose Schedule 2002 Completed [facility] 00:00:00 [facility] Hep B, Adol or Pedi 2002 Completed [facility] Dosage 00:00:00 [facility] Polio (IPV/OPV) 2002 Completed [facility] 00:00:00 [facility] DTAP 2002 Completed [facility] 00:00:00 [facility] HIB 4 Dose Schedule 2002 Completed [facility] 00[facility]00:00 [facility] Hep B, Adol or Pedi 2002 Completed [facility] Dosage 00:00:00 [facility] Polio (IPV/OPV) 2002 Completed [facility] 00[facility]00:00 [facility] DTAP 2002 Completed [facility] 00:00:00 [facility] HIB 4 Dose Schedule 2002 Completed [facility] 00[facility]00:00 [facility] Hep B, Adol or Pedi 2002 Completed [facility] Dosage 00:00:00 [facility] Polio (IPV/OPV) 2002 Completed [facility] 00[facility]00:00 [facility] DTAP 2002 Completed [facility] 00:00:00 [facility] HIB 4 Dose Schedule 2002 Completed [facility] 00:00:00 [facility] Hep B, Adol or Pedi 2002 Completed [facility] Dosage 00:00:00 [facility] Polio (IPV/OPV) 2002 Completed [facility] 00:00:00 [facility] DTAP 2002 Completed [facility] 00:00:00 [facility] HIB 4 Dose Schedule 2002 Completed [facility] 00:00:00 [facility] Hep B, Adol or Pedi 2002 Completed [facility] Dosage 00:00:00 [facility] Polio (IPV/OPV) 2002 Completed [facility] 00[facility]00:00 [facility] DTAP 2002 Completed [facility] 00:00:00 [facility] HIB 4 Dose Schedule 2002 Completed [facility] 00[facility]00:00 [facility] Hep B, Adol or Pedi 2002 Completed [facility] Dosage 00:00:00 [facility] Polio (IPV/OPV) 2002 Completed [facility] 00[facility]00:00 [facility] DTAP 2002 Completed [facility] 00:00:00 [facility] HIB 4 Dose Schedule 2002 Completed [facility] 00:[facility]:00 [facility] Hep B, Adol or Pedi 2002 Completed [facility] Dosage 00:00:00 [facility] Polio (IPV/OPV) 2002 Completed [facility] 00:00:00 [facility] DTAP 2002 Completed [facility] 00:00:00 [facility] HIB 4 Dose Schedule 2002 Completed [facility] 00:00:00 [facility] Hep B, Adol or Pedi 2002 Completed [facility] Dosage 00:00:00 [facility] Polio (IPV/OPV) 2002 Completed [facility] 00[facility]00:00 [facility] DTAP 2002 Completed [facility] 00:00:00 [facility] HIB 4 Dose Schedule 2002 Completed [facility] 00[facility]:00 [facility] Hep B, Adol or Pedi 2002 Completed [facility] Dosage 00:00:00 [facility] Polio (IPV/OPV) 2002 Completed [facility] 00:00:00 [facility] DTAP 2002 Completed [facility] 00:00:00 [facility] HIB 4 Dose Schedule 2002 Completed [facility] 00:00:00 [facility] Hep B, Adol or Pedi 2002 Completed [facility] Dosage 00:00:00 [facility] [place] Polio (IPV/OPV) 2002 Completed [facility] 00:00:00 [facility] [place] DTAP 2002 Completed [facility] 00:00:00 [facility] [place] HIB 4 Dose Schedule 2002 Completed Unive [facility]ity of 00:00:00 [facility] Hep B, Adol or Pedi 2002 Completed [facility]ive rsity of Dosage 00:00:00 [facility] [place] Polio (IPV/OPV) 2002 Completed [facility] 00:00:00 [facility] [place] DTAP 2002 Completed [facility] 00:00:00 [facility] [place] HIB 4 Dose Schedule 2002 Completed [facility]ive rsity of 00:00:00 [facility] Hep B, Adol or Pedi 2002 Completed [facility]ive rsity of Dosage 00:00:00 [facility] [place] Polio (IPV/OPV) 2002 Completed [facility] 00:00:00 [facility] [place] DTAP 2002 Completed [facility] 00:00:00 [facility] [place] HIB 4 Dose Schedule 2002 Completed [facility]ive [facility]ity of 00:00:00 [facility] Hep B, Adol or Pedi 2002 Completed [facility]ive rsity of Dosage 00:00:00 [facility] [place] Polio (IPV/OPV) 2002 Completed [facility] 00:00:00 [facility] [place] DTAP 2002 Completed [facility] 00:00:00 [facility] HIB 4 Dose Schedule 2002 Completed [facility]ive [facility]ity of 00:00:00 [facility] Hep B, Adol or Pedi 2002 Completed [facility]ive rsity of Dosage 00:00:00 [facility] [place] Polio (IPV/OPV) 2002 Completed [facility] 00:00:00 [facility] DTAP 2002 Completed [facility] 00:00:00 [facility] [place] HIB 4 Dose Schedule 2002 Completed [facility]ive rsity of 00:00:00 [facility] Hep B, Adol or Pedi 2002 Completed [facility]ive rsity of Dosage 00:00:00 [facility] [place] Polio (IPV/OPV) 2002 Completed [facility] 00:00:00 [facility] [place] DTAP 2002 Completed [facility] 00:00:00 [facility] [place] HIB 4 Dose Schedule 2002 Completed [facility] of 00:00:00 [facility] Hep B, Adol or Pedi 2002 Completed [facility]ive rsity of Dosage 00:00:00 [facility] [place] Polio (IPV/OPV) 2002 Completed [facility] 00:00:00 [facility] [place] DTAP 2002 Completed [facility] 00:00:00 [facility] [place] HIB 4 Dose Schedule 2002 Completed [facility] 00:00:00 [facility] [place] Hep B, Adol or Pedi 2002 Completed [facility]ive [facility]ity of Dosage 00:00:00 [facility] [place] Polio (IPV/OPV) 2002 Completed [facility] 00:00:00 [facility] [place] DTAP 2002 Completed [facility] 00:00:00 [facility] [place] HIB 4 Dose Schedule 2002 Completed [facility] of 00:00:00 [facility] Hep B, Adol or Pedi 2002 Completed [facility]ive rsity of Dosage 00:00:00 [facility] [place] Polio (IPV/OPV) 2002 Completed [facility] 00:00:00 [facility] [place] DTAP 2002 Completed [facility] 00:00:00 [facility] [place] HIB 4 Dose Schedule 2002 Completed [facility] of 00:00:00 [facility] Hep B, Adol or Pedi 2002 Completed [facility]ive rsity of Dosage 00:00:00 [facility] [place] Polio (IPV/OPV) 2002 Completed [facility] 00:00:00 [facility] [place] DTAP 2002 Completed [facility] 00:00:00 [facility] [place] HIB 4 Dose Schedule 2002 Completed [facility] 00:00:00 [facility] Hep B, Adol or Pedi 2002 Completed [facility]ive rsity of Dosage 00:00:00 [facility] Polio (IPV/OPV) 2002 Completed [facility] 00:00:00 [facility] DTAP 2002 Completed [facility] 00:00:00 [facility] [place] HIB 4 Dose Schedule 2002 Completed [facility]ive [facility]ity of 00:00:00 [facility] Hep B, Adol or Pedi 2002 Completed [facility]ive [facility]ity of Dosage 00:00:00 [facility] [place] Polio (IPV/OPV) 2002 Completed [facility] 00:00:00 [facility] [place] DTAP 2002 Completed [facility] 00:00:00 [facility] [place] HIB 4 Dose Schedule 2002 Completed [facility] rsity of 00:00:00 [facility] Hep B, Adol or Pedi 2002 Completed [facility]ive rsity of Dosage 00:00:00 [facility] [place] Polio (IPV/OPV) 2002 Completed [facility] 00:00:00 [facility] [place] DTAP 2002 Completed [facility] 00:00:00 [facility] [place] HIB 4 Dose Schedule 2002 Completed [facility]ity of 00:00:00 [facility] Hep B, Adol or Pedi 2002 Completed [facility]ive rsity of Dosage 00:00:00 [facility] [place] Polio (IPV/OPV) 2002 Completed [facility] 00:00:00 [facility] [place] DTAP 2002 Completed [facility] 00:00:00 [facility] [place] HIB 4 Dose Schedule 2002 Completed [facility] of 00:00:00 [facility] Hep B, Adol or Pedi 2002 Completed [facility]ive rsity of Dosage 00:00:00 [facility] Polio (IPV/OPV) 2002 Completed [facility] 00:00:00 [facility] [place] DTAP 2002 Completed [facility] 00:00:00 [facility] HIB 4 Dose Schedule 2002 Completed [facility] of 00:00:00 [facility] Hep B, Adol or Pedi 2002 Completed [facility]ive rsity of Dosage 00:00:00 [facility] [place] Polio (IPV/OPV) 2002 Completed [facility] 00:00:00 [facility] DTAP 2002 Completed [facility] 00:00:00 [facility] HIB 4 Dose Schedule 2002 Completed [facility]ive rs[facility] of 00:00:00 [facility] Hep B, Adol or Pedi 2002 Completed [facility]ive [facility]ity of Dosage 00:00:00 [facility] [place] Polio (IPV/OPV) 2002 Completed [facility] 00:00:00 [facility] Hep B, Adol or Pedi 2002 Completed [facility]ive rsity of Dosage 00:00:00 [facility] Hep B, Adol or Pedi 2002 Completed [facility]ive [facility]ity of Dosage 00:00:00 [facility] Hep B, Adol or Pedi 2002 Completed [facility]ive [facility]ity of Dosage 00:00:00 [facility] Hep B, Adol or Pedi 2002 Completed [facility]ity of Dosage 00:00:00 [facility] Hep B, Adol or Pedi 2002 Completed [facility]ive rsity of Dosage 00:00:00 [facility] Hep B, Adol or Pedi 2002 Completed [facility]ive [facility]ity of Dosage 00:00:00 [facility] Hep B, Adol or Pedi 2002 Completed [facility]ive rsity of Dosage 00:00:00 [facility] Hep B, Adol or Pedi 2002 Completed [facility]ive rsity of Dosage 00:00:00 [facility] Hep B, Adol or Pedi 2002 Completed [facility]ive rsity of Dosage 00:00:00 [facility] Hep B, Adol or Pedi 2002 Completed [facility]ive rsity of Dosage 00:00:00 [facility] Hep B, Adol or Pedi 2002 Completed [facility]ive rsity of Dosage 00:00:00 [facility] Hep B, Adol or Pedi 2002 Completed [facility]ive rsity of Dosage 00:00:00 [facility] Hep B, Adol or Pedi 2002 Completed [facility]ive [facility]ity of Dosage 00:00:00 [facility] Hep B, Adol or Pedi [...] Completed Unive rsity of Dosage 00:00:00 [facility] [place] Hep B, Adol or Pedi 2002 Completed [facility]ive rsity of Dosage 00:00:00 [facility] [place] HEPATITIS A Unknown Completed [facility] Influenza Virus Unknown Completed [facility] Vaccine [facility] [place] HEPATITIS A Unknown Completed [facility] DTAP Unknown Completed [facility] Proquad Unknown Completed University (MMR/VARICELLA) [facility] Polio (IPV/OPV) Unknown Completed [facility] of [facility] [place] Influenza Virus Unknown Completed [facility] Vaccine [facility] [place] Influenza Virus Unknown Completed [facility] Vaccine [facility] [place] Influenza Virus Unknown Completed [facility] Vaccine [facility] [place] Influenza Virus Unknown Completed [facility] Vaccine [facility] [place] Influenza Virus Unknown Completed [facility] Vaccine [facility] [place] Influenza Virus Unknown Completed [facility] Vaccine [facility] [place] Influenza Virus Unknown Completed [facility] of Vaccine (3+ yrs) [facility] Meningococcal Unknown Completed [facility] [place] (groups A, C, Y and Branc h W-135) conjugate vaccine (MCV4P) TDAP Unknown Completed [facility] Influenza Virus Unknown Completed Universit [facility] of Vaccine (3+ yrs) [facility] Influenza Virus Unknown Completed Universit y of Vaccine Quad IM 3+ [facility] HPV9 Unknown Completed [facility] HPV Unknown Completed [facility] HPV9 Unknown Completed [facility] Influenza Virus Unknown Completed [facility] of Vaccine Quad IM 3+ [facility] Meningococcal Unknown Completed [facility] [place] (groups A, C, Y and Branc h W-135) conjugate vaccine (MCV4P) Influenza Virus Unknown Completed Universit [facility] of Vaccine Quad .[address] [facility] IM 6+ MO Branch (FLUZONE/FLULAVAL/FL UARIX) Meningococcal B, OMV Unknown Completed Univ ersity [facility] Hep B, Adol or Pedi Unknown Completed Unive rsity of Dosage [facility] [place] Meningococcal B, OMV Unknown Completed Univ ersity [facility] Influenza Virus Unknown Completed Universit [facility] of Vaccine Quad .[address] [facility] IM 6+ MO Branch (FLUZONE/FLULAVAL/FL UARIX) SARS-COV-2 COVID-19 Unknown Completed Unive rsity of PFIZER VACCINE [facility] SARS-COV-2 COVID-19 Unknown Completed Unive rsity of PFIZER VACCINE [facility] SARS-COV-2 COVID-19 Unknown Completed Unive rsity of PFIZER VACCINE [facility] SARS-COV-2 COVID-19 Unknown Completed Unive rsity of MIKE-SUCROSE VACCINE [facility] 12 YRS+, BIVALENT Branch 0.3ML, IM, (PFIZER ARITA TOP) DTAP Unknown Completed [facility] DTAP Unknown Completed [facility] DTAP Unknown Completed [facility] HIB 4 Dose Schedule Unknown Completed Unive rsity of [facility] HIB 4 Dose Schedule Unknown Completed Unive rsity [facility] HIB 4 Dose Schedule Unknown Completed Unive rsity [facility] Hep B, Adol or Pedi Unknown Completed Unive rsity of Dosage [facility] [place] Hep B, Adol or Pedi Unknown Completed Unive [facility]ity of [facility] Pneumococcal 7 Unknown Completed [place] Conjugate, PCV7 [facility] (Prevnar7) Branch Pneumococcal 7 Unknown Completed [place] of Conjugate, PCV7 [facility] (Prevnar7) Branch Polio (IPV/OPV) Unknown Completed Universit y [facility] Polio (IPV/OPV) Unknown [facility] HIB 4 Dose Schedule Unknown Completed Unive [facility] MMR Unknown Completed [facility] Pneumococcal 7 Unknown Completed University of Conjugate, PCV7 [facility] (Prevnar7) Branch Polio (IPV/OPV) Unknown Completed Universit y [facility] Varicella Unknown Completed [facility] of (varivax)(chicken [place] [facility] pox) [facility] HEPATITIS A Unknown Completed [facility] Influenza Virus Unknown Completed [facility] HEPATITIS A Unknown Completed [facility] DTAP Unknown Completed [facility] Proquad Unknown Completed University of (MMR/VARICELLA) [facility] Polio (IPV/OPV) Unknown Completed Universit y [facility] Influenza Virus Unknown Completed [facility] Influenza Virus Unknown Completed [facility] Influenza Virus Unknown Completed [facility] Influenza Virus Unknown Completed [facility] Influenza Virus Unknown Completed [facility] Influenza Virus Unknown Completed [facility] Influenza Virus Unknown Completed [facility]it y of Vaccine (3+ yrs) [facility] Meningococcal Unknown Completed [facility] Polysaccharide [facility] (groups A, C, Y and Branc h W-135) conjugate vaccine (MCV4P) TDAP Unknown Completed [facility] Influenza Virus Unknown Completed Universit y of Vaccine (3+ yrs) [facility] Influenza Virus Unknown Completed [facility] of Vaccine Quad IM 3+ [facility] HPV9 Unknown Completed [facility] HPV Unknown Completed [facility] HPV9 Unknown Completed [facility] Influenza Virus Unknown Completed [facility]it y of Vaccine Quad IM 3+ [facility] Meningococcal Unknown Completed [facility] (groups A, C, Y and Branc h W-135) conjugate vaccine (MCV4P) Influenza Virus Unknown Completed [facility]it [facility] of Vaccine Quad .[address] [facility] IM 6+ MO Branch (FLUZONE/FLULAVAL/FL UARIX) Meningococcal B, OMV Unknown [facility], Adol or Pedi Unknown Completed Unive rsity of Dosage [facility] Meningococcal B, OMV Unknown [facility] Completed [facility] of Vaccine Quad .[address] [facility] IM 6+ MO Branch (FLUZONE/FLULAVAL/FL UARIX) SARS-COV-2 COVID-19 Unknown Completed Unive rsity of PFIZER VACCINE [facility] SARS-COV-2 COVID-19 Unknown Completed Unive rsity of PFIZER VACCINE [facility] SARS-COV-2 COVID-19 Unknown Completed Unive rsity of PFIZER VACCINE [facility] SARS-COV-2 COVID-19 Unknown Completed Unive rsity of MIKE-SUCROSE VACCINE [facility] 12 YRS+, BIVALENT Branch 0.3ML, IM, (PFIZER ARITA TOP) DTAP Unknown Completed [facility] DTAP Unknown Completed [facility] DTAP Unknown Completed [facility] HIB 4 Dose Schedule Unknown Completed Unive rsity [facility] HIB 4 Dose Schedule Unknown Completed Unive rsity [facility] HIB 4 Dose Schedule Unknown Completed Unive rsity [facility] Hep B, Adol or Pedi Unknown Completed Unive rsity of Dosage [facility] [place] Hep B, Adol or Pedi Unknown Completed Unive rsity of Dosage [facility] [place] Pneumococcal 7 Unknown Completed University of Conjugate, PCV7 [facility] (Prevnar7) Branch Pneumococcal 7 Unknown Completed University of Conjugate, PCV7 [facility] (Prevnar7) Branch Polio (IPV/OPV) Unknown Completed [facility] of [facility] [place] Polio (IPV/OPV) Unknown Completed Universit y [facility] HIB 4 Dose Schedule Unknown Completed [facility] MMR Unknown Completed [facility] Pneumococcal 7 Unknown Completed University of Conjugate, PCV7 [facility] (Prevnar7) Branch Polio (IPV/OPV) Unknown Completed Universit y [facility] Varicella Unknown Completed University (varivax)(chicken [place] [facility] pox) Branch HEPATITIS A Unknown Completed [facility] Influenza Virus Unknown Completed [facility] of Vaccine [facility] [place] HEPATITIS A Unknown Completed [facility] DTAP Unknown Completed [facility] Proquad Unknown Completed University of (MMR/VARICELLA) [facility] Polio (IPV/OPV) Unknown Completed Universit y [facility] Influenza Virus Unknown Completed [facility] y of Vaccine [facility] Influenza Virus Unknown Completed [facility] of Vaccine [facility] Influenza Virus Unknown Completed [facility] of Vaccine [facility] [place] Influenza Virus Unknown Completed [facility] of Vaccine [facility] Influenza Virus Unknown Completed [facility] y of Vaccine [facility] Influenza Virus Unknown Completed [facility] y of Vaccine [facility] Influenza Virus Unknown Completed Universit y of Vaccine (3+ yrs) [facility] Meningococcal Unknown Completed [facility] Polysaccharide [facility] [place] (groups A, C, Y and Branc h W-135) conjugate vaccine (MCV4P) TDAP Unknown Completed [facility] Influenza Virus Unknown Completed Universit y of Vaccine (3+ yrs) [facility] Influenza Virus Unknown Completed [facility] y of Vaccine Quad IM 3+ [facility] HPV9 Unknown Completed [facility] HPV Unknown Completed [facility] HPV9 Unknown Completed [facility] Influenza Virus Unknown Completed Universit y of Vaccine Quad IM 3+ [facility] Meningococcal Unknown Completed [facility] Polysaccharide [facility] [place] (groups A, C, Y and Branc h W-135) conjugate vaccine (MCV4P) Influenza Virus Unknown Completed Universit y of Vaccine Quad .[address] [facility] 6+ MO Branch (FLUZONE/FLULAVAL/FL UARIX) Meningococcal B, OMV Unknown Completed Univ ersity [facility] Hep B, Adol or Pedi Unknown Completed Unive rsity of Dosage [facility] Meningococcal B, OMV Unknown Completed Univ ersity of [facility] Influenza Virus Unknown Completed Universit y of Vaccine Quad .[address] [facility] 6+ MO Branch (FLUZONE/FLULAVAL/FL UARIX) SARS-COV-2 COVID-19 Unknown Completed Unive rsity of PFIZER VACCINE [facility] SARS-COV-2 COVID-19 Unknown Completed Unive rsity of PFIZER VACCINE [facility] SARS-COV-2 COVID-19 Unknown Completed Unive rsity of PFIZER VACCINE [facility] SARS-COV-2 COVID-19 Unknown Completed Unive rsity of MIKE-SUCROSE VACCINE [facility] 12 YRS+, BIVALENT Branch 0.3ML, IM, (PFIZER ARITA TOP) HEPATITIS A Unknown Completed [facility] Influenza Virus Unknown Completed [facility] of Vaccine [facility] HEPATITIS A Unknown Completed [facility] DTAP Unknown Completed [facility] Proquad Unknown Completed University of (MMR/VARICELLA) [facility] Polio (IPV/OPV) Unknown Completed Universit [facility] of [facility] Influenza Virus Unknown Completed [facility] of Vaccine [facility] Influenza Virus Unknown Completed [facility] of Vaccine [facility] [place] Influenza Virus Unknown Completed [facility] of Vaccine [facility] [place] Influenza Virus Unknown Completed [facility] of Vaccine [facility] Influenza Virus Unknown Completed [facility] of Vaccine [facility] Influenza Virus Unknown Completed [facility] of Vaccine [facility] Influenza Virus Unknown Completed Universit y of Vaccine (3+ yrs) [facility] Branch Meningococcal Unknown Completed University of Polysaccharide [facility] [place] (groups A, C, Y and Branc h W-135) conjugate vaccine (MCV4P) TDAP Unknown Completed [facility] Influenza Virus Unknown Completed Universit y of Vaccine (3+ yrs) [facility] Influenza Virus Unknown Completed [facility] y of Vaccine Quad IM 3+ [facility] HPV9 Unknown Completed [facility] HPV Unknown Completed [facility] HPV9 Unknown Completed [facility] Influenza Virus Unknown Completed Universit y of Vaccine Quad IM 3+ [facility] Meningococcal Unknown Completed University Polysaccharide [facility] [place] (groups A, C, Y and Branc h W-135) conjugate vaccine (MCV4P) Influenza Virus Unknown Completed Universit y of Vaccine Quad .[address] [facility] IM 6+ MO Branch (FLUZONE/FLULAVAL/FL UARIX) Meningococcal B, OMV Unknown Completed Univ ersity [facility] Hep B, Adol or Pedi Unknown Completed Unive rsity of Dosage [facility] Meningococcal B, OMV Unknown Completed Univ ersity of [facility] Influenza Virus Unknown Completed Universit y of Vaccine Quad .[address] [facility] IM 6+ MO Branch (FLUZONE/FLULAVAL/FL UARIX) SARS-COV-2 COVID-19 Unknown Completed Unive rsity of PFIZER VACCINE [facility] SARS-COV-2 COVID-19 Unknown Completed Unive rsity of PFIZER VACCINE [facility] SARS-COV-2 COVID-19 Unknown Completed Unive rsity of PFIZER VACCINE [facility] SARS-COV-2 COVID-19 Unknown Completed Unive rsity of MIKE-SUCROSE VACCINE [facility] 12 YRS+, BIVALENT Branch 0.3ML, IM, (PFIZER ARITA TOP) DTAP Unknown Completed [facility] DTAP Unknown Completed [facility] DTAP Unknown Completed [facility] HIB 4 Dose Schedule Unknown Completed Unive rsity of [facility] HIB 4 Dose Schedule Unknown Completed Unive rsity [facility] HIB 4 Dose Schedule Unknown Completed Unive rsity [facility] Hep B, Adol or Pedi Unknown Completed Unive rsity of Dosage [facility] [place] Hep B, Adol or Pedi Unknown Completed Unive rsity of Dosage [facility] [place] Pneumococcal 7 Unknown Completed University of Conjugate, PCV7 [facility] ical (Prevnar7) Branch Pneumococcal 7 Unknown Completed University of Conjugate, PCV7 [facility] ical (Prevnar7) Branch Polio (IPV/OPV) Unknown [facility] Polio (IPV/OPV) Unknown Completed [facility] y [facility] HIB 4 Dose Schedule Unknown [facility] Completed [facility] Pneumococcal 7 Unknown Completed University of Conjugate, PCV7 [facility] ical (Prevnar7) Branch Polio (IPV/OPV) Unknown Completed Universit y [facility] Varicella Unknown Completed University (varivax)([facility]icken [place] [facility] pox) Branch HEPATITIS A Unknown Completed [facility] Influenza Virus Unknown Completed Universit y of Vaccine [facility] HEPATITIS A Unknown Completed [facility] DTAP Unknown Completed [facility] Proquad Unknown Completed [facility] (MMR/VARICELLA) [facility] Polio (IPV/OPV) Unknown Completed Universit y of [facility] Influenza Virus Unknown Completed Universit y of Vaccine [facility] Influenza Virus Unknown Completed Universit y of Vaccine [facility] Influenza Virus Unknown Completed Universit y of Vaccine [facility] Influenza Virus Unknown Completed Universit y of Vaccine [facility] Influenza Virus Unknown Completed Universit y of Vaccine [facility] Influenza Virus Unknown Completed Universit y of Vaccine [facility] Influenza Virus Unknown Completed Universit y of Vaccine (3+ yrs) [facility] Meningococcal Unknown Completed [facility] Polysaccharide [facility] (groups A, C, Y and Branc h W-135) conjugate vaccine (MCV4P) TDAP Unknown Completed [facility] Influenza Virus Unknown Completed Universit y of Vaccine (3+ yrs) [facility] Influenza Virus Unknown Completed Universit y of Vaccine Quad IM 3+ [facility] HPV9 Unknown Completed [facility] HPV Unknown Completed [facility] HPV9 Unknown Completed [facility] Influenza Virus Unknown Completed Universit y of Vaccine Quad IM 3+ [facility] Meningococcal Unknown Completed [facility] Polysaccharide [facility] (groups A, C, Y and Branc h W-135) conjugate vaccine (MCV4P) Influenza Virus Unknown Completed Universit y of Vaccine Quad .[address] [facility] 6+ MO Branch (FLUZONE/FLULAVAL/FL UARIX) Meningococcal B, OMV Unknown [facility] B, Adol or Pedi Unknown Completed Unive rsity of Dosage [facility] Meningococcal B, OMV Unknown Completed Univ ersity [facility] Influenza Virus Unknown Completed Universit y of Vaccine Quad .[address] [facility] 6+ MO Branch (FLUZONE/FLULAVAL/FL UARIX) SARS-COV-2 COVID-19 Unknown Completed Unive rsity of PFIZER VACCINE [facility] SARS-COV-2 COVID-19 Unknown Completed Unive rsity of PFIZER VACCINE [facility] SARS-COV-2 COVID-19 Unknown Completed Unive rsity of PFIZER VACCINE [facility] SARS-COV-2 COVID-19 Unknown Completed Unive rsity of MIKE-SUCROSE VACCINE [facility] 12 YRS+, BIVALENT Branch 0.3ML, IM, (PFIZER ARITA TOP) HEPATITIS A Unknown Completed [facility] Influenza Virus Unknown Completed Universit y of Vaccine [facility] HEPATITIS A Unknown Completed [facility] DTAP Unknown Completed [facility] Proquad Unknown Completed University (MMR/VARICELLA) [facility] Polio (IPV/OPV) Unknown Completed Universit y of [facility] Influenza Virus Unknown Completed Universit y of Vaccine [facility] Influenza Virus Unknown Completed Universit y of Vaccine [facility] Influenza Virus Unknown Completed Universit y of Vaccine [facility] Influenza Virus Unknown Completed Universit y of Vaccine [facility] Influenza Virus Unknown Completed Universit y of Vaccine [facility] Influenza Virus Unknown Completed Universit y of Vaccine [facility] Influenza Virus Unknown Completed Universit y of Vaccine (3+ yrs) [facility] Meningococcal Unknown Completed [facility] (groups A, C, Y and Branc h W-135) conjugate vaccine (MCV4P) TDAP Unknown Completed [facility] Influenza Virus Unknown Completed Universit y of Vaccine (3+ yrs) [facility] Influenza Virus Unknown Completed Universit y of Vaccine Quad IM 3+ [facility] HPV9 Unknown Completed [facility] HPV Unknown Completed [facility] HPV9 Unknown Completed [facility] Influenza Virus Unknown Completed Universit y of Vaccine Quad IM 3+ [facility] Meningococcal Unknown Completed [facility] (groups A, C, Y and Branc h W-135) conjugate vaccine (MCV4P) Influenza Virus Unknown Completed Universit y of Vaccine Quad .[address] [facility] IM 6+ MO Branch (FLUZONE/FLULAVAL/FL UARIX) Meningococcal B, OMV Unknown [facility], Adol or Pedi Unknown Completed Unive rsity of Dosage [facility] Meningococcal B, OMV Unknown [facility] Influenza Virus Unknown Completed Universit y of Vaccine Quad .[address] [facility] IM 6+ MO Branch (FLUZONE/FLULAVAL/FL UARIX) SARS-COV-2 COVID-19 Unknown Completed Unive rsity of PFIZER VACCINE [facility] SARS-COV-2 COVID-19 Unknown Completed Unive rsity of PFIZER VACCINE [facility] SARS-COV-2 COVID-19 Unknown Completed Unive rsity of PFIZER VACCINE [facility] Branch SARS-COV-2 COVID-19 Unknown Completed Unive rsity of MIKE-SUCROSE VACCINE [facility] 12 YRS+, BIVALENT Branch 0.3ML, IM, (PFIZER ARITA TOP) HEPATITIS A Unknown Completed [facility] Influenza Virus Unknown Completed Universit y of Vaccine [facility] HEPATITIS A Unknown Completed [facility] DTAP Unknown Completed [facility] Proquad Unknown Completed University (MMR/VARICELLA) [facility] Polio (IPV/OPV) Unknown Completed Universit y of [facility] Influenza Virus Unknown Completed Universit y of Vaccine [facility] Influenza Virus Unknown Completed Universit y of Vaccine [facility] Influenza Virus Unknown Completed Universit y of Vaccine [facility] Influenza Virus Unknown Completed Universit y of Vaccine [facility] Influenza Virus Unknown Completed Universit y of Vaccine [facility] Influenza Virus Unknown Completed Universit y of Vaccine [facility] Influenza Virus Unknown Completed Universit y of Vaccine (3+ yrs) [facility] Meningococcal Unknown Completed University Polysaccharide [facility] (groups A, C, Y and Branc h W-135) conjugate vaccine (MCV4P) TDAP Unknown Completed [facility] Influenza Virus Unknown Completed Universit y of Vaccine (3+ yrs) [facility] Influenza Virus Unknown Completed Universit y of Vaccine Quad IM 3+ [facility] HPV9 Unknown Completed [facility] HPV Unknown Completed [facility] HPV9 Unknown Completed [facility] Influenza Virus Unknown Completed Universit y of Vaccine Quad IM 3+ [facility] Meningococcal Unknown Completed [facility] (groups A, C, Y and Branc h W-135) conjugate vaccine (MCV4P) Influenza Virus Unknown Completed Universit y of Vaccine Quad .[address] [facility] IM 6+ MO Branch (FLUZONE/FLULAVAL/FL UARIX) Meningococcal B, OMV Unknown Completed Univ ersity of [facility] Hep B, Adol or Pedi Unknown Completed Unive rsity of Dosage [facility] Meningococcal B, OMV Unknown Completed Univ ersity [facility] Influenza Virus Unknown Completed Universit y of Vaccine Quad .[address] [facility] IM 6+ MO Branch (FLUZONE/FLULAVAL/FL UARIX) SARS-COV-2 COVID-19 Unknown Completed Unive rsity of PFIZER VACCINE [facility] Branch SARS-COV-2 COVID-19 Unknown Completed Unive rsity of PFIZER VACCINE [facility] Branch SARS-COV-2 COVID-19 Unknown Completed Unive rsity of PFIZER VACCINE [facility] Branch SARS-COV-2 COVID-19 Unknown Completed Unive rsity of MIKE-SUCROSE VACCINE [facility] 12 YRS+, BIVALENT Branch 0.3ML, IM, (PFIZER ARITA TOP) DTAP Unknown Completed [facility] DTAP Unknown Completed [facility] DTAP Unknown Completed [facility] HIB 4 Dose Schedule Unknown Completed Unive rsity of [facility] HIB 4 Dose Schedule Unknown Completed Unive rsity [facility] HIB 4 Dose Schedule Unknown Completed Unive rsity [facility] Hep B, Adol or Pedi Unknown Completed Unive rsity of Dosage [facility] Hep B, Adol or Pedi Unknown Completed Unive rsity of Dosage [facility] Pneumococcal 7 Unknown Completed [place] of Conjugate, PCV7 [facility] (Prevnar7) Branch Pneumococcal 7 Unknown Completed University of Conjugate, PCV7 [facility] (Prevnar7) Branch Polio (IPV/OPV) Unknown Completed Universit y [facility] Polio (IPV/OPV) Unknown Completed [facility] HIB 4 Dose Schedule Unknown Completed Unive [facility] MMR Unknown Completed [facility] Pneumococcal 7 Unknown Completed University of Conjugate, PCV7 [facility] (Prevnar7) Branch Polio (IPV/OPV) Unknown Completed Universit y [facility] Varicella Unknown Completed University of (varivax)([place]icken [place] [facility] pox) Branch HEPATITIS A Unknown Completed [facility] Influenza Virus Unknown Completed Universit y of [facility] HEPATITIS A Unknown Completed [facility] DTAP Unknown Completed [facility] Proquad Unknown Completed University of (MMR/VARICELLA) [facility] Branch Polio (IPV/OPV) Unknown Completed Universit y [facility] Influenza Virus Unknown Completed Universit y of [facility] Influenza Virus Unknown Completed Universit y of [facility] Influenza Virus Unknown Completed [facility]it [facility] of [facility] Influenza Virus Unknown Completed Universit y of Vaccine [facility] Influenza Virus Unknown Completed [facility]it [facility] of [facility] Influenza Virus Unknown Completed Universit y of Vaccine [facility] Influenza Virus Unknown Completed Universit y of Vaccine (3+ yrs) [facility] M[facility] Completed [facility] Polysaccharide [facility] (groups A, C, Y and Branc h W-135) conjugate vaccine (MCV4P) TDAP Unknown Completed [facility] Influenza Virus Unknown Completed Universit y of Vaccine (3+ yrs) [facility] Influ[facility] Virus Unknown Completed Universit y of Vaccine Quad IM 3+ [facility] HPV9 Unknown Completed [facility] HPV Unknown Completed [facility] HPV9 Unknown Completed [facility] Influenza Virus Unknown Completed Universit y of Vaccine Quad IM 3+ [facility] Meningococcal Unknown Completed [facility] Polysaccharide [facility] (groups A, C, Y and Branc h W-135) conjugate vaccine (MCV4P) Influenza Virus Unknown Completed Universit y of Vaccine Quad .[address] [facility] IM 6+ MO Branch (FLUZONE/FLULAVAL/FL UARIX) Meningococcal B, OMV Unknown [facility] B, Adol or Pedi Unknown Completed Unive rsity of Dosage [facility] Meningococcal B, OMV Unknown [facility] Influenza Virus Unknown Completed Universit y of Vaccine Quad .[address] [facility] 6+ MO Branch (FLUZONE/FLULAVAL/FL UARIX) SARS-COV-2 COVID-19 Unknown Completed Unive rsity of PFIZER VACCINE [facility] Branch SARS-COV-2 COVID-19 Unknown Completed Unive rsity of PFIZER VACCINE [facility] SARS-COV-2 COVID-19 Unknown Completed Unive rsity of PFIZER VACCINE [facility] SARS-COV-2 COVID-19 Unknown Completed Unive rsity of MIKE[facility]SUCROSE [facility] 12 Y[facility]+, BIVALENT Branch 0.3ML, IM, (PFIZER ARITA TOP) DTAP Unknown Completed [facility] DTAP Unknown Completed [facility] DTAP Unknown Completed [facility] HIB 4 Dose Schedule Unknown Completed Unive rsity of [facility] HIB 4 Dose Schedule Unknown Completed Unive rsity of [facility] HIB 4 Dose Schedule Unknown Completed Unive rsity of [facility] Hep B, Adol or Pedi Unknown Completed Unive rsity of Dosage [facility] Hep B, Adol or Pedi Unknown Completed Unive rsity of Dosage [facility] Pneumococcal 7 Unknown Completed University of Conjugate, PCV7 [facility] ical (Prevnar7) Branch Pneumococcal 7 Unknown Completed University [facility], [facility]7 [facility] Branch Polio (IPV/OPV) Unknown Completed Universit y [facility] Polio (IPV/OPV) Unknown Completed Universit y [facility] HIB 4 Dose Schedule Unknown Completed Unive rsity [facility] MMR Unknown Completed [facility] Pneumococcal 7 Unknown Completed University of Conjugate, PCV7 [facility] (Prevnar7) Branch Polio (IPV/OPV) Unknown Completed Universit y [facility] Varicella Unknown Completed [facility] (varivax)([facility]icken [place] [facility] pox) Branch HEPATITIS A Unknown Completed [facility] Influenza Virus Unknown Completed Universit y of Vaccine [facility] HEPATITIS A Unknown Completed [facility] DTAP Unknown Completed [facility] Proquad Unknown Completed University of (MMR/VARICELLA) [facility] Branch Polio (IPV/OPV) Unknown Completed Universit y [facility] Influenza Virus Unknown Completed Universit y of Vaccine [facility] Influenza Virus Unknown Completed Universit y of Vaccine [facility] Influenza Virus Unknown Completed Universit y of Vaccine [facility] Influenza Virus Unknown Completed Universit y of Vaccine [facility] Influenza Virus Unknown Completed Universit y of Vaccine [facility] Influenza Virus Unknown Completed Universit y of Vaccine [facility] Influenza Virus Unknown Completed Universit y of Vaccine (3+ yrs) [facility] Branch Meningococcal Unknown Completed University of Polysaccharide [facility] (groups A, C, Y and Branc h W-135) conjugate vaccine (MCV4P) TDAP Unknown Completed [facility] Influenza Virus Unknown Completed Universit y of Vaccine (3+ yrs) [facility] Influenza Virus Unknown Completed Universit y of Vaccine Quad IM 3+ [facility] HPV9 Unknown Completed [facility] HPV Unknown Completed [facility] HPV9 Unknown Completed [facility] Influenza Virus Unknown Completed Universit y of Vaccine Quad IM 3+ [facility] Branch Meningococcal Unknown Completed University Polysaccharide [facility] (groups A, C, Y and Branc h W-135) conjugate vaccine (MCV4P) Influenza Virus Unknown Completed Universit y of Vaccine Quad .[address] [facility] 6+ MO Branch (FLUZONE/FLULAVAL/FL UARIX) Meningococcal B, OMV Unknown Completed Univ ersity [facility] Hep B, Adol or Pedi Unknown Completed Unive rsity of Dosage [facility] Meningococcal B, OMV Unknown Completed Univ ersity [facility] Influenza Virus Unknown Completed Universit y of Vaccine Quad .[address] [facility] IM 6+ MO Branch (FLUZONE/FLULAVAL/FL UARIX) SARS-COV-2 COVID-19 Unknown Completed Unive rsity of PFIZER VACCINE [facility] Branch SARS-COV-2 COVID-19 Unknown Completed Unive rsity of PFIZER VACCINE [facility] Branch SARS-COV-2 COVID-19 Unknown Completed Unive rsity of PFIZER VACCINE [facility] SARS-COV-2 COVID-19 Unknown Completed Unive rsity of MIKE-SUCROSE VACCINE [facility] 12 YRS+, BIVALENT Branch 0.3ML, IM, (PFIZER ARITA TOP) DTAP Unknown Completed [facility] DTAP Unknown Completed [facility] DTAP Unknown Completed [facility] HIB 4 Dose Schedule Unknown Completed Unive rsity of [facility] HIB 4 Dose Schedule Unknown Completed Unive rsity [facility] HIB 4 Dose Schedule Unknown [facility], Adol or Pedi Unknown Completed Unive rsity of Dosage [facility] Hep B, Adol or Pedi Unknown Completed Unive rsity of [facility] Pneumococcal 7 Unknown Completed [facility] Conjugate, PCV7 [facility] (Prevnar7) Branch Pneumococcal 7 Unknown Completed [facility] Conjugate, PCV7 [facility] (Prevnar7) Branch Polio (IPV/OPV) Unknown [facility] Polio (IPV/OPV) Unknown Completed [facility] HIB 4 Dose Schedule Unknown Completed Unive [facility] MMR Unknown Completed [facility] Pneumococcal 7 Unknown Completed [facility] Conjugate, PCV7 [facility] (Prevnar7) Branch Polio (IPV/OPV) Unknown Completed [facility] Varicella Unknown Completed University (varivax)(chicken [place] [facility] pox) Branch HEPATITIS A Unknown Completed [facility] Influenza Virus Unknown Completed Universit y of Vaccine [facility] HEPATITIS A Unknown Completed [facility] DTAP Unknown Completed [facility] Proquad Unknown Completed University (MMR/VARICELLA) [facility] Polio (IPV/OPV) Unknown Completed Universit y of [facility] Influenza Virus Unknown Completed Universit y of Vaccine [facility] Influenza Virus Unknown Completed Universit y of Vaccine [facility] Influenza Virus Unknown Completed Universit y of Vaccine [facility] Influenza Virus Unknown Completed Universit y of Vaccine [facility] Influenza Virus Unknown Completed Universit y of Vaccine [facility] Influenza Virus Unknown Completed Universit y of Vaccine [facility] Influenza Virus Unknown Completed Universit y of Vaccine (3+ yrs) [facility] Meningococcal Unknown Completed University Polysaccharide [facility] (groups A, C, Y and Branc h W-135) conjugate vaccine (MCV4P) TDAP Unknown Completed [facility] Influenza Virus Unknown Completed Universit y of Vaccine (3+ yrs) [facility] Influenza Virus Unknown Completed Universit y of Vaccine Quad IM 3+ [facility] HPV9 Unknown Completed [facility] HPV Unknown Completed [facility] HPV9 Unknown Completed [facility] Influenza Virus Unknown Completed Universit y of Vaccine Quad IM 3+ [facility] Meningococcal Unknown Completed University Polysaccharide [facility] (groups A, C, Y and Branc h W-135) conjugate vaccine (MCV4P) Influenza Virus Unknown Completed Universit y of Vaccine Quad .[address] [facility] IM 6+ MO Branch (FLUZONE/FLULAVAL/FL UARIX) Meningococcal B, OMV Unknown [facility] B, Adol or Pedi Unknown Completed Unive rsity of Dosage [facility] Meningococcal B, OMV Unknown [facility] Influenza Virus Unknown Completed Universit y of Vaccine Quad .[address] [facility] IM 6+ MO Branch (FLUZONE/FLULAVAL/FL UARIX) SARS-COV-2 COVID-19 Unknown Completed Unive rsity of PFIZER VACCINE [facility] SARS-COV-2 COVID-19 Unknown Completed Unive rsity of PFIZER VACCINE [facility] SARS-COV-2 COVID-19 Unknown Completed Unive rsity of PFIZER VACCINE [facility] SARS-COV-2 COVID-19 Unknown Completed Unive rsity of MIKE-SUCROSE VACCINE [facility] 12 YRS+, BIVALENT Branch 0.3ML, IM, (PFIZER ARITA TOP) DTAP Unknown Completed [facility] DTAP Unknown Completed [facility] DTAP Unknown Completed [facility] HIB 4 Dose Schedule Unknown [facility] 4 Dose Schedule Unknown [facility] HIB 4 Dose Schedule Unknown [facility] Hep B, Adol or Pedi Unknown Completed Unive rsity of Dosage [facility] Hep B, Adol or Pedi Unknown Completed Unive rsity of Dosage [facility] Pneumococcal 7 Unknown Completed [place] of Conjugate, PCV7 [facility] (Prevnar7) Branch Pneumococcal 7 Unknown Completed [facility] Conjugate, PCV7 [facility] (Prevnar7) Branch Polio (IPV/OPV) Unknown Completed [facility] Polio (IPV/OPV) [facility] HIB 4 Dose Schedule Unknown Completed Unive [facility] MMR Unknown Completed [facility] Pneumococcal 7 Unknown Completed [facility] Conjugate, PCV7 [facility] (Prevnar7) Branch Polio (IPV/OPV) Unknown Completed Univers[facility] y [facility] Varicella Unknown Completed University (varivax)(chicken [place] [facility] pox) Branch HEPATITIS A Unknown Completed [facility] Influenza Virus Unknown Completed Universit y of Vaccine [facility] HEPATITIS A Unknown Completed [facility] DTAP Unknown Completed [facility] Proquad Unknown Completed University of (MMR/VARICELLA) [facility] Branch Polio (IPV/OPV) Unknown Completed [facility] y [facility] Influenza Virus Unknown Completed Universit y of Vaccine [facility] Influenza Virus Unknown Completed [facility]it y of Vaccine [facility] Influenza Virus Unknown Completed [facility] y of Vaccine [facility] Influenza Virus Unknown Completed [facility] y of Vaccine [facility] Influenza Virus Unknown Completed Universit y of Vaccine [facility] Influenza Virus Unknown Completed Universit y of Vaccine [facility] Influenza Virus Unknown Completed Universit y of Vaccine (3+ yrs) [facility] [place] Meningococcal Unknown Completed [facility] (groups A, C, Y and Branc h W-135) conjugate vaccine (MCV4P) TDAP Unknown Completed [facility] Influenza Virus Unknown Completed Universit y of Vaccine (3+ yrs) [facility] Influenza [facility] Unknown Completed [facility] y of Vaccine Quad IM 3+ [facility] HPV9 Unknown Completed [facility] HPV Unknown Completed [facility] HPV9 Unknown Completed [facility] Influenza Virus Unknown Completed Universit y of Vaccine Quad IM 3+ [facility] Meningococcal Unknown Completed [facility] Polysaccharide [facility] [place] (groups A, C, Y and Branc h W-135) conjugate vaccine (MCV4P) Influenza Virus Unknown Completed Universit y of Vaccine Quad .[address] [facility] IM 6+ MO Branch (FLUZONE/FLULAVAL/FL UARIX) Meningococcal B, OMV Unknown Completed Univ ersity [facility] Hep B, Adol or Pedi Unknown Completed Unive rsity of Dosage [facility] Meningococcal B, OMV Unknown Completed Univ ersity [facility] Influenza Virus Unknown Completed Universit y of Vaccine Quad .[address] [facility] IM 6+ MO Branch (FLUZONE/FLULAVAL/FL UARIX) SARS-COV-2 COVID-19 Unknown Completed Unive rsity of PFIZER VACCINE [facility] Branch SARS-COV-2 COVID-19 Unknown Completed Unive rsity of PFIZER VACCINE [facility] Branch SARS-COV-2 COVID-19 Unknown Completed Unive rsity of PFIZER VACCINE [facility] SARS-COV-2 COVID-19 Unknown Completed Unive rsity of MIKE-SUCROSE VACCINE [facility] 12 YRS+, BIVALENT Branch 0.3ML, IM, (PFIZER ARITA TOP) HEPATITIS A Unknown Completed [facility] Influenza Virus Unknown Completed [facility]it y of [facility] HEPATITIS A Unknown Completed [facility] DTAP Unknown Completed [facility] Proquad Unknown Completed University of (MMR/VARICELLA) [facility] Polio (IPV/OPV) Unknown Completed Universit y of [facility] Influenza Virus Unknown Completed Universit y of Vaccine [facility] Influenza Virus Unknown Completed Univers[facility] y of Vaccine [facility] Influenza Virus Unknown Completed Universit y of Vaccine [facility] Influenza Virus Unknown Completed [facility]it y of Vaccine [facility] Influenza Virus Unknown Completed Universit y of Vaccine [facility] Influenza Virus Unknown Completed Universit y of Vaccine [facility] Influenza Virus Unknown Completed Universit y of Vaccine (3+ yrs) [facility] Branch Meningococcal Unknown Completed University Polysaccharide [facility] (groups A, C, Y and Branc h W-135) conjugate vaccine (MCV4P) TDAP Unknown Completed [facility] Influenza Virus Unknown Completed Universit y of Vaccine (3+ yrs) [facility] [place] Influenza Virus Unknown Completed Universit y of Vaccine Quad IM 3+ [facility] HPV9 Unknown Completed [facility] HPV Unknown Completed [facility] HPV9 Unknown Completed [facility] Influenza Virus Unknown Completed Universit y of Vaccine Quad IM 3+ [facility] Branch Meningococcal Unknown Completed [facility] (groups A, C, Y and Branc h W-135) conjugate vaccine (MCV4P) Influenza Virus Unknown Completed Universit y of Vaccine Quad .[address] [facility] IM 6+ MO Branch (FLUZONE/FLULAVAL/FL UARIX) Meningococcal B, OMV Unknown Completed Univ ersity [facility] Hep B, Adol or Pedi Unknown Completed Unive rsity of Dosage [facility] Meningococcal B, OMV Unknown Completed Univ ersity [facility] Influenza Virus Unknown Completed Universit y of Vaccine Quad .[address] [facility] IM 6+ MO Branch (FLUZONE/FLULAVAL/FL UARIX) SARS-COV-2 COVID-19 Unknown Completed Unive rsity of PFIZER VACCINE [facility] Branch SARS-COV-2 COVID-19 Unknown Completed Unive rsity of PFIZER VACCINE [facility] SARS-COV-2 COVID-19 Unknown Completed Unive rsity of PFIZER VACCINE [facility] SARS-COV-2 COVID-19 Unknown Completed Unive rsity of MIKE-SUCROSE VACCINE [facility] 12 YRS+, BIVALENT Branch 0.3ML, IM, (PFIZER ARITA TOP) HEPATITIS A Unknown Completed [facility] Influenza Virus Unknown Completed [facility]it y of [facility] HEPATITIS A Unknown Completed [facility] DTAP Unknown Completed [facility] Proquad Unknown Completed University of (MMR/VARICELLA) [facility] Polio (IPV/OPV) Unknown Completed Universit y of [facility] Influenza Virus Unknown Completed Universit y of Vaccine [facility] Influenza Virus Unknown Completed Universit y of Vaccine [facility] Influenza Virus Unknown Completed Universit y of Vaccine [facility] Influenza Virus Unknown Completed Universit y of Vaccine [facility] Influenza Virus Unknown Completed Universit y of Vaccine [facility] Influenza Virus Unknown Completed Universit y of Vaccine [facility] Influenza Virus Unknown Completed Universit y of Vaccine (3+ yrs) [facility] Meningococcal Unknown Completed University of Polysaccharide [facility] (groups A, C, Y and Branc h W-135) conjugate vaccine (MCV4P) TDAP Unknown Completed [facility] Influenza Virus Unknown Completed Universit y of Vaccine (3+ yrs) [facility] [place] Influenza Virus Unknown Completed Universit y of Vaccine Quad IM 3+ [facility] HPV9 Unknown Completed [facility] HPV Unknown Completed [facility] HPV9 Unknown Completed [facility] Influenza Virus Unknown Completed Universit y of Vaccine Quad IM 3+ [facility] Meningococcal Unknown Completed [facility] Polysaccharide [facility] (groups A, C, Y and Branc h W-135) conjugate vaccine (MCV4P) Influenza Virus Unknown Completed Universit y of Vaccine Quad .[address] [facility] IM 6+ MO Branch (FLUZONE/FLULAVAL/FL UARIX) Meningococcal B, OMV Unknown [facility], Adol or Pedi Unknown Completed Unive rsity of Dosage [facility] Meningococcal B, OMV Unknown [facility] Influ[facility] Virus Unknown Completed Universit y of Vaccine Quad .[address] [facility] IM 6+ MO Branch (FLUZONE/FLULAVAL/FL UARIX) SARS-COV-2 COVID-19 Unknown Completed Unive rsity of PFIZER VACCINE [facility] SARS-COV-2 COVID-19 Unknown Completed Unive rsity of PFIZER VACCINE [facility] SARS-COV-2 COVID-19 Unknown Completed Unive rsity of PFIZER VACCINE [facility] SARS-COV-2 COVID-19 Unknown Completed Unive rsity of MIKE-SUCROSE VACCINE [facility] 12 YRS+, BIVALENT Branch 0.3ML, IM, (PFIZER ARITA TOP) HEPATITIS A Unknown Completed [facility] Influenza Virus Unknown Completed Universit y of Vaccine [facility] HEPATITIS A Unknown Completed [facility] DTAP Unknown Completed [facility] Proquad Unknown Completed University (MMR/VARICELLA) [facility] Polio (IPV/OPV) Unknown Completed Universit y [facility] Influenza Virus Unknown Completed Universit y of Vaccine [facility] Influenza Virus Unknown Completed [facility]it y of Vaccine [facility] Influenza Virus Unknown Completed Universit y of Vaccine [facility] Influenza Virus Unknown Completed [facility] Vaccine [facility] Influenza Virus Unknown Completed Universit y of Vaccine [facility] Influenza Virus Unknown Completed Universit y of Vaccine [facility] Influenza Virus Unknown Completed Universit y of Vaccine (3+ yrs) [facility] Meningococcal Unknown Completed University of Polysaccharide [facility] (groups A, C, Y and Branc h W-135) conjugate vaccine (MCV4P) TDAP Unknown Completed [facility] Influenza Virus Unknown Completed Universit y of Vaccine (3+ yrs) [facility] Influenza Virus Unknown Completed Universit y of Vaccine Quad IM 3+ [facility] HPV9 Unknown Completed [facility] HPV Unknown Completed [facility] HPV9 Unknown Completed [facility] Influenza Virus Unknown Completed Universit y of Vaccine Quad IM 3+ [facility] Meningococcal Unknown Completed [facility] Polysaccharide [facility] (groups A, C, Y and Branc h W-135) conjugate vaccine (MCV4P) Influenza Virus Unknown Completed Universit y of Vaccine Quad .[address] [facility] IM 6+ MO Branch (FLUZONE/FLULAVAL/FL UARIX) Meningococcal B, OMV Unknown Completed Univ ersity [facility] Hep B, Adol or Pedi Unknown Completed Unive rsity of Dosage [facility] Meningococcal B, OMV Unknown [facility] Completed Universit y of Vaccine Quad .[address] [facility] 6+ MO Branch (FLUZONE/FLULAVAL/FL UARIX) SARS-COV-2 COVID-19 Unknown Completed Unive rsity of PFIZER VACCINE [facility] SARS-COV-2 COVID-19 Unknown Completed Unive rsity of PFIZER VACCINE [facility] SARS-COV-2 COVID-19 Unknown Completed Unive rsity of PFIZER VACCINE [facility] SARS-COV-2 COVID-19 Unknown Completed Unive rsity of MIKE-SUCROSE VACCINE [facility] 12 YRS+, BIVALENT Branch 0.3ML, IM, (PFIZER ARITA TOP) HEPATITIS A Unknown Completed [facility] Influenza Virus Unknown Completed Universit y of Vaccine [facility] HEPATITIS A Unknown Completed [facility] DTAP Unknown Completed [facility] Proquad Unknown Completed University of (MMR/VARICELLA) [facility] Polio (IPV/OPV) Unknown Completed Universit y of [facility] Influenza Virus Unknown Completed Universit y of Vaccine [facility] Influenza Virus Unknown Completed Universit y of Vaccine [facility] Influenza Virus Unknown Completed Universit y of Vaccine [facility] Influenza Virus Unknown Completed Universit y of Vaccine [facility] Influenza Virus Unknown Completed Universit y of Vaccine [facility] Influenza Virus Unknown Completed Universit y of Vaccine [facility] Influenza Virus Unknown Completed Universit y of Vaccine (3+ yrs) [facility] [place] Meningococcal Unknown Completed [facility] Polysaccharide [facility] (groups A, C, Y and Branc h W-135) conjugate vaccine (MCV4P) TDAP Unknown Completed [facility] Influenza Virus Unknown Completed Universit y of Vaccine (3+ yrs) [facility] Influenza Virus Unknown Completed Universit y of Vaccine Quad IM 3+ [facility] HPV9 Unknown Completed [facility] HPV Unknown Completed [facility] HPV9 Unknown Completed [facility] Influenza Virus Unknown Completed Universit y of Vaccine Quad IM 3+ [facility] Meningococcal Unknown Completed [facility] Polysaccharide [facility] (groups A, C, Y and Branc h W-135) conjugate vaccine (MCV4P) Influenza Virus Unknown Completed Universit y of Vaccine Quad .[address] [facility] IM 6+ MO Branch (FLUZONE/FLULAVAL/FL UARIX) Meningococcal B, OMV Unknown [facility], Adol or Pedi Unknown Completed Unive rsity of Dosage [facility] Meningococcal B, OMV Unknown [facility] Influ[facility] Virus Unknown Completed Universit y of Vaccine Quad .[address] [facility] IM 6+ MO Branch (FLUZONE/FLULAVAL/FL UARIX) SARS-COV-2 COVID-19 Unknown Completed Unive rsity of PFIZER VACCINE [facility] SARS-COV-2 COVID-19 Unknown Completed Unive rsity of PFIZER VACCINE [facility] SARS-COV-2 COVID-19 Unknown Completed Unive rsity of PFIZER VACCINE [facility] SARS-COV-2 COVID-19 Unknown Completed Unive rsity of MIKE-SUCROSE VACCINE [facility] 12 YRS+, BIVALENT Branch 0.3ML, IM, (PFIZER ARITA TOP) HEPATITIS A Unknown Completed [facility] Influenza Virus Unknown Completed Universit y of Vaccine [facility] HEPATITIS A Unknown Completed [facility] DTAP Unknown Completed [facility] Proquad Unknown Completed University of (MMR/VARICELLA) [facility] Polio (IPV/OPV) Unknown Completed Universit y of [facility] Influenza Virus Unknown Completed Universit y of Vaccine [facility] Influenza Virus Unknown Completed Universit y of Vaccine [facility] Influenza Virus Unknown Completed Universit y of Vaccine [facility] Influenza Virus Unknown Completed Universit y of Vaccine [facility] Influenza Virus Unknown Completed Universit y of Vaccine [facility] Influenza Virus Unknown Completed Universit y of Vaccine [facility] Influenza Virus Unknown Completed Universit y of Vaccine (3+ yrs) [facility] Meningococcal Unknown Completed [facility] Polysaccharide [facility] (groups A, C, Y and Branc h W-135) conjugate vaccine (MCV4P) TDAP Unknown Completed [facility] Influenza Virus Unknown Completed Universit y of Vaccine (3+ yrs) [facility] Influenza Virus Unknown Completed Universit y of Vaccine Quad IM 3+ [facility] HPV9 Unknown Completed [facility] HPV Unknown Completed [facility] HPV9 Unknown Completed [facility] Influenza Virus Unknown Completed Universit y of Vaccine Quad IM 3+ [facility] Meningococcal Unknown Completed [facility] Polysaccharide [facility] (groups A, C, Y and Branc h W-135) conjugate vaccine (MCV4P) Influenza Virus Unknown Completed Universit y of Vaccine Quad .[address] [facility] IM 6+ MO Branch (FLUZONE/FLULAVAL/FL UARIX) Meningococcal B, OMV Unknown [facility], Adol or Pedi Unknown Completed Unive rsity of Dosage [facility] Meningococcal B, OMV Unknown [facility] Influenza Virus Unknown Completed Universit y of Vaccine Quad .[address] [facility] IM 6+ MO Branch (FLUZONE/FLULAVAL/FL UARIX) SARS-COV-2 COVID-19 Unknown Completed Unive rsity of PFIZER VACCINE [facility] SARS-COV-2 COVID-19 Unknown Completed Unive rsity of PFIZER VACCINE [facility] SARS-COV-2 COVID-19 Unknown Completed Unive rsity of PFIZER VACCINE [facility] SARS-COV-2 COVID-19 Unknown Completed Unive rsity of MIKE-SUCROSE VACCINE [facility] 12 YRS+, BIVALENT Branch 0.3ML, IM, (PFIZER ARITA TOP) DTAP Unknown Completed [facility] DTAP Unknown Completed [facility] DTAP Unknown Completed [facility] HIB 4 Dose Schedule Unknown Completed Unive rsity [facility] HIB 4 Dose Schedule Unknown [facility] Dose Schedule Unknown [facility] B, Adol or Pedi Unknown Completed Unive rsity of Dosage [facility] Hep B, Adol or Pedi Unknown Completed Unive rsity of Dosage [facility] Pneumococcal 7 Unknown Completed University of Conjugate, PCV7 [facility] (Prevnar7) Branch Pneumococcal 7 Unknown Completed University Conjugate, PCV7 [facility] (Prevnar7) Branch Polio (IPV/OPV) Unknown Completed Universit y [facility] Polio (IPV/OPV) Unknown [facility] HIB 4 Dose Schedule Unknown Completed Unive [facility] MMR Unknown Completed [facility] Pneumococcal 7 Unknown Completed [facility] Conjugate, PCV7 [facility] (Prevnar7) Branch Polio (IPV/OPV) Unknown Completed Universit y [facility] Varicella Unknown Completed [facility] (varivax)(chicken [place] [facility] pox) Branch HEPATITIS A Unknown Completed [facility] Influenza Virus Unknown Completed Universit y of Vaccine [facility] HEPATITIS A Unknown Completed [facility] DTAP Unknown Completed [facility] Proquad Unknown Completed University of (MMR/VARICELLA) [facility] Branch Polio (IPV/OPV) Unknown Completed Universit y [facility] Influenza Virus Unknown Completed Universit y of Vaccine [facility] Influenza Virus Unknown Completed Universit y of Vaccine [facility] Influenza Virus Unknown Completed Universit y of Vaccine [facility] Influenza Virus Unknown Completed Universit y of Vaccine [facility] Influenza Virus Unknown Completed Universit y of Vaccine [facility] Influenza Virus Unknown Completed Universit y of Vaccine [facility] Influenza Virus Unknown Completed Universit y of Vaccine (3+ yrs) [facility] [place] Meningococcal Unknown Completed [facility] [place] (groups A, C, Y and Branc h W-135) conjugate vaccine (MCV4P) TDAP Unknown Completed [facility] Influenza Virus Unknown Completed Universit y of Vaccine (3+ yrs) [facility] Influenza Virus Unknown Completed Universit y of Vaccine Quad IM 3+ [facility] Branch HPV9 Unknown Completed [facility] HPV Unknown Completed [facility] HPV9 Unknown Completed [facility] Influenza Virus Unknown Completed Universit y of Vaccine Quad IM 3+ [facility] YRS Branch Meningococcal Unknown Completed [facility] Polysaccharide [facility] (groups A, C, Y and Branc h W-135) conjugate vaccine (MCV4P) Influenza Virus Unknown Completed Universit y of Vaccine Quad .[address] [facility] IM 6+ MO Branch (FLUZONE/FLULAVAL/FL UARIX) Meningococcal B, OMV Unknown Completed Univ ersity [facility] Hep B, Adol or Pedi Unknown Completed Unive rsity of Dosage [facility] Meningococcal B, OMV Unknown [facility] Influenza Virus Unknown Completed Universit y of Vaccine Quad .[address] [facility] IM 6+ MO Branch (FLUZONE/FLULAVAL/FL UARIX) SARS-COV-2 COVID-19 Unknown Completed Unive rsity of PFIZER VACCINE [facility] Branch SARS-COV-2 COVID-19 Unknown Completed Unive rsity of PFIZER VACCINE [facility] Branch SARS-COV-2 COVID-19 Unknown Completed Unive rsity of PFIZER VACCINE [facility] Branch SARS-COV-2 COVID-19 Unknown Completed Unive rsity of MIKE-SUCROSE VACCINE [facility] 12 YRS+, BIVALENT Branch 0.3ML, IM, (PFIZER ARITA TOP) Vital Signs Vital Name Observation Time Observation Value Comments Source Systolic blood 2023-04-27 117 mm[Hg] [place] of pressure 15:01:00 [facility] Diastolic blood 2023-04-27 78 mm[Hg] [place] o f pressure 15:: [facility] Heart rate 2023-04-27 126 /min University of 15:: [facility] Body temperature 2023-04-27 36.83 [place] University of 15:01:00 [facility] Respiratory rate 2023-04-27 16 /min University :: [facility] Body height 2023-04-27 160 cm University of ::00 [facility] Body weight 2023-04-27 56.337 kg University of 15:01: [facility] BMI 2023-04-27 22.00 kg/m2 University of 15:01:00 [facility] Oxygen saturation 2023-04-27 98 /min [facility] in Arterial blood 15:01: [facility] by Pulse oximetry Branch Systolic blood 2023-04-25 115 mm[Hg] University of pressure 22:01:00 [facility] Diastolic blood 2023-04-25 84 mm[Hg] University o f pressure 22:01:00 [facility] Heart rate 2023-04-25 108 /min University of 22::00 [facility] Body temperature 2023-04-25 36.61 [place] University of 22:01:00 [facility] Respiratory rate 2023-04-25 19 /min University of 22:01:00 [facility] Body height 2023-04-25 160 cm University of 22:01:00 [facility] Body weight 2023-04-25 57.607 kg University of 22::00 [facility] BMI 2023-04-25 22.50 kg/m2 University of 22::00 [facility] Oxygen saturation 2023-04-25 100 /min University in Arterial blood 22:01:00 [facility] by Pulse oximetry Branch Body temperature 2022-12-15 36.44 [place] University of 15:53:00 [facility] Body weight 2022-12-15 52.39 kg University of 15:53:00 [facility] Systolic blood 2022-11-25 109 mm[Hg] University of pressure 13:50:00 [facility] Diastolic blood 2022-11-25 76 mm[Hg] University o f pressure 13:50:00 [facility] Heart rate 2022-11-25 89 /min University of 13:50:00 [facility] Respiratory rate 2022-11-25 18 /min University of 13:50:00 [facility] Body height 2022-11-25 160 cm University of 13:50:00 [facility] Body weight 2022-11-25 53.071 kg University of 13:50:00 [facility] BMI 2022-11-25 20.73 kg/m2 University of 13:50:00 [facility] Body temperature 2022-06-16 35.83 [place] University of 17:18:00 [facility] Body height 2022-06-16 160 cm University of 17:18:00 [facility] Body weight 2022-06-16 50.44 kg University of 17:18:00 [facility] BMI 2022-06-16 19.70 kg/m2 University of 17:18:00 [facility] Systolic blood 2022-06-01 94 mm[Hg] erp informed, University o f pressure 05:18:00 asymptomatic [facility] Diastolic blood 2022-06-01 71 mm[Hg] erp informed, University of pressure 05:18:00 asymptomatic [facility] Heart rate 2022-06-01 85 /min University of 05:18:00 [facility] Respiratory rate 2022-06-01 18 /min University of 05:18:00 [facility] Oxygen saturation 2022-06-01 100 /min [facility] in Arterial blood 05:18:00 [facility] [place] by Pulse oximetry Branch Body temperature 2022-06-01 36.5 [place] University of 04:31:00 [facility] Body height 2022-06-01 160 cm University of 04:31:00 [facility] Body weight 2022-06-01 51.256 kg University of 04:31:00 [facility] BMI 2022-06-01 20.02 kg/m2 University of 04:31:00 [facility] Body temperature 2022-05-19 36.28 [place] University of 18:10:00 [facility] Body weight 2022-05-19 51.256 kg University of 18:10:00 [facility] BMI 2022-05-19 20.02 kg/m2 University of 18:10:00 [facility] Body temperature 2022-04-21 36.22 [place] University of 20:32:00 [facility] Body height 2022-04-21 160 cm University of 20:32:00 [facility] Body weight 2022-04-21 50.349 kg University of 20:32:00 [facility] BMI 2022-04-21 19.66 kg/m2 University of 20:32:00 [facility] Systolic blood 2022-04-11 110 mm[Hg] University of pressure 03:10:00 [facility] Diastolic blood 2022-04-11 73 mm[Hg] University o f pressure 03:10:00 [facility] Heart rate 2022-04-11 88 /min University of 03:10:00 [facility] Respiratory rate 2022-04-11 18 /min University of 03:10:00 [facility] Oxygen saturation 2022-04-11 100 /min [facility] in Arterial blood 03:10:00 [facility] [place] by Pulse oximetry Branch Body temperature 2022-04-10 36.28 [place] University of 22:10:00 [facility] Body weight 2022-04-10 49.896 kg University of 22:10:00 [facility] BMI 2022-04-10 19.80 kg/m2 University of 22:10:00 [facility] Systolic blood 2022-04-10 108 mm[Hg] University of pressure 21:48:00 [facility] Diastolic blood 2022-04-10 75 mm[Hg] University o f pressure 21:48:00 [facility] Heart rate 2022-04-10 127 /min University of 21:48:00 [facility] Body temperature 2022-04-10 36.61 [place] University of 21:48:00 [facility] Respiratory rate 2022-04-10 17 /min University of 21:48:00 [facility] Body height 2022-04-10 158.8 cm University of 21:48:00 [facility] Body weight 2022-04-10 49.896 kg University of :48:00 [facility] BMI 2022-04-10 19.80 kg/m2 University of 21:48:00 [facility] Oxygen saturation 2022-04-10 98 /min University of in Arterial blood 21:48:00 [facility] by Pulse oximetry Branch Systolic blood 2022-04-07 104 mm[Hg] University of pressure 18:00:00 [facility] Diastolic blood 2022-04-07 58 mm[Hg] University o f pressure 18:00:00 [facility] Heart rate 2022-04-07 64 /min University of 18:00:00 [facility] Body temperature 2022-04-07 36.39 [place] University of 18:00:00 [facility] Respiratory rate 2022-04-07 18 /min University of 18:00:00 [facility] Oxygen saturation 2022-04-07 96 /min University of in Arterial blood 18:00:00 [place] [facility] Pulse oxim[facility] Body height 2022-04-04 161.3 cm University of 23:00:18 [facility] Body weight 2022-04-04 50.349 kg University of 23:00:18 [facility] BMI 2022-04-04 19.35 kg/m2 University of 23:00:18 [facility] Heart rate 2022-04-04 109 /min University of 21:03:00 [facility] Body temperature 2022-04-04 37.72 [place] University of 21:03:00 [facility] Respiratory rate 2022-04-04 18 /min University of 21:03:00 [facility] Oxygen saturation 2022-04-04 95 /min [facility] in Arterial blood 21:03:00 [facility] by Pulse oximetry Branch Systolic blood 2022-04-04 98 mm[Hg] University of pressure 21:00:00 [facility] Diastolic blood 2022-04-04 64 mm[Hg] University o f pressure 21:00:00 [facility] Body height 2022-04-04 162.6 cm University of 17:44:00 [facility] Body weight 2022-04-04 50.349 kg University of 17:44:00 [facility] BMI 2022-04-04 19.05 kg/m2 University of 17:44:00 [facility] Systolic blood 2022-04-01 118 mm[Hg] University of pressure 06:00:00 [facility] Diastolic blood 2022-04-01 92 mm[Hg] University o f pressure 06:00:00 [facility] Heart rate 2022-04-01 78 /min University of 06:00:00 [facility] Respiratory rate 2022-04-01 16 /min University 06:00:00 [facility] Oxygen saturation 2022-04-01 98 /min [facility] in Arterial blood 06:00:00 [facility] by Pulse oximetry [place] Body height 2022-04-01 160 cm University of 03:48:00 [facility] Body weight 2022-04-01 56.7 kg University of 03:48:00 [facility] BMI 2022-04-01 22.14 kg/m2 University of 03:48:00 [facility] Height 2020-09-25 165.1 CM 23:56:00 Weight 2020-09-25 2.69 KG 23:56:00 Systolic blood 2023-04-27 117 mm[Hg] University of pressure 15:01:00 [facility] Diastolic blood 2023-04-27 78 mm[Hg] University o f pressure 15:01:00 [facility] Heart rate 2023-04-27 126 /min University of 15:01:00 [facility] Body temperature 2023-04-27 36.83 [place] University of 15:01:00 [facility] Respiratory rate 2023-04-27 16 /min University of 15:01:00 [facility] Body height 2023-04-27 160 cm University of 15:01:00 [facility] Body weight 2023-04-27 56.337 kg University of 15:01:00 [facility] BMI 2023-04-27 22.00 kg/m2 University of 15:01:00 [facility] Oxygen saturation 2023-04-27 98 /min University in Arterial blood 15:01:00 [facility] Pulse oximetry Branch Systolic blood 2023-04-18 117 mm[Hg] University of pressure 19:50:00 [facility] Diastolic blood 2023-04-18 79 mm[Hg] University o f pressure 19:50:00 [facility] Heart rate 2023-04-18 104 /min University of 19:50:00 [facility] Respiratory rate 2023-04-18 18 /min University of 19:50:00 [facility] Body height 2023-04-18 160 cm University of 19:50:00 [facility] Body weight 2023-04-18 57.335 kg University of 19:50:00 [facility] BMI 2023-04-18 22.39 kg/m2 University of 19:50:00 [facility] Systolic blood 2023-03-30 107 mm[Hg] University of pressure 19:30:00 [facility] Diastolic blood 2023-03-30 75 mm[Hg] University o f pressure 19:30:00 [facility] Heart rate 2023-03-30 109 /min University of 19:30:00 [facility] Respiratory rate 2023-03-30 18 /min University of 19:30:00 [facility] Body height 2023-03-30 160 cm University of 19:30:00 [facility] Body weight 2023-03-30 55.43 kg University of 19:30:00 [facility] BMI 2023-03-30 21.65 kg/m2 University of 19:30:00 [facility] Systolic blood 2023-03-16 108 mm[Hg] University of pressure 19:30:00 [facility] Diastolic blood 2023-03-16 76 mm[Hg] University o f pressure 19:30:00 [facility] Heart rate 2023-03-16 92 /min University of 19:30:00 [facility] Respiratory rate 2023-03-16 18 /min University of 19:30:00 [facility] Body height 2023-03-16 160 cm University of 19:30:00 [facility] Body weight 2023-03-16 54.341 kg University of 19:30:00 [facility] BMI 2023-03-16 21.22 kg/m2 University of 19:30:00 [facility] Body temperature 2022-12-15 36.44 [place] University of 15:53:00 [facility] Body weight 2022-12-15 52.39 kg University of 15:53:00 [facility] Systolic blood 2022-12-05 120 mm[Hg] University of pressure 13:53:00 [facility] Diastolic blood 2022-12-05 79 mm[Hg] University o f pressure 13:53:00 [facility] Heart rate 2022-12-05 95 /min University of 13:53:00 [facility] Respiratory rate 2022-12-05 18 /min University of 13:53:00 [facility] Body height 2022-12-05 160 cm University of 13:53:00 [facility] Body weight 2022-12-05 53.434 kg University of 13:53:00 [facility] BMI 2022-12-05 20.87 kg/m2 University of 13:53:00 [facility] Systolic blood 2022-11-25 109 mm[Hg] University of pressure 13:50:00 [facility] Diastolic blood 2022-11-25 76 mm[Hg] University o f pressure 13:50:00 [facility] Heart rate 2022-11-25 89 /min University of 13:50:00 [facility] Respiratory rate 2022-11-25 18 /min University of 13:50:00 [facility] Body height 2022-11-25 160 cm University of 13:50:00 [facility] Body weight 2022-11-25 53.071 kg University of 13:50:00 [facility] BMI 2022-11-25 20.73 kg/m2 University of 13:50:00 [facility] Systolic blood 2022-10-31 126 mm[Hg] University of pressure 14:07:00 [facility] Diastolic blood 2022-10-31 79 mm[Hg] University o f pressure 14:07:00 [facility] Heart rate 2022-10-31 93 /min University of 14:07:00 [facility] Respiratory rate 2022-10-31 18 /min University of 14:07:00 [facility] Body height 2022-10-31 160 cm University of 14:07:00 [facility] Body weight 2022-10-31 51.256 kg University of 14:07:00 [facility] BMI 2022-10-31 20.02 kg/m2 University of 14:07:00 [facility] Systolic blood 2022-09-19 108 mm[Hg] University of pressure 13:00:00 [facility] Diastolic blood 2022-09-19 83 mm[Hg] University o f pressure 13:00:00 [facility] Heart rate 2022-09-19 88 /min University of 13:00:00 [facility] Respiratory rate 2022-09-19 18 /min University of 13:00:00 [facility] Body height 2022-09-19 160 cm University of 13:00:00 [facility] Body weight 2022-09-19 51.256 kg University of 13:00:00 [facility] BMI 2022-09-19 20.02 kg/m2 University of 13:00:00 [facility] Systolic blood 2022-08-22 117 mm[Hg] University of pressure 15:53:00 [facility] Diastolic blood 2022-08-22 80 mm[Hg] University o f pressure 15:53:00 [facility] Heart rate 2022-08-22 88 /min University of 15:53:00 [facility] Respiratory rate 2022-08-22 18 /min University of 15:53:00 [facility] Body height 2022-08-22 160 cm University of 15:53:00 [facility] Body weight 2022-08-22 50.803 kg University of 15:53:00 [facility] BMI 2022-08-22 19.84 kg/m2 University of 15:53:00 [facility] Systolic blood 2022-07-25 100 mm[Hg] University of pressure 14:23:00 [facility] Diastolic blood 2022-07-25 78 mm[Hg] University o f pressure 14:23:00 [facility] Heart rate 2022-07-25 107 /min University of 14:23:00 [facility] Respiratory rate 2022-07-25 18 /min University of 14:23:00 [facility] Body height 2022-07-25 160 cm University of 14:23:00 [facility] Body weight 2022-07-25 50.803 kg University of 14:23:00 [facility] BMI 2022-07-25 19.84 kg/m2 University of 14:23:00 [facility] Body temperature 2022-06-16 35.83 [place] University of 17:18:00 [facility] Body height 2022-06-16 160 cm University of 17:18:00 [facility] Body weight 2022-06-16 50.44 kg University of 17:18:00 [facility] BMI 2022-06-16 19.70 kg/m2 University of 17:18:00 [facility] Systolic blood 2022-06-16 113 mm[Hg] University of pressure 16:33:00 [facility] Diastolic blood 2022-06-16 79 mm[Hg] University o f pressure 16:33:00 [facility] Heart rate 2022-06-16 112 /min University of 16:33:00 [facility] Respiratory rate 2022-06-16 18 /min University of 16:33:00 [facility] Body height 2022-06-16 160 cm University of 16:33:00 [facility] Body weight 2022-06-16 51.256 kg University of 16:33:00 [facility] BMI 2022-06-16 20.02 kg/m2 University of 16:33:00 [facility] Systolic blood 2022-06-13 117 mm[Hg] University of pressure 16:37:00 [facility] Diastolic blood 2022-06-13 85 mm[Hg] University o f pressure 16:37:00 [facility] Heart rate 2022-06-13 118 /min University of 16:37:00 [facility] Respiratory rate 2022-06-13 18 /min University of 16:37:00 [facility] Body height 2022-06-13 160 cm University of 16:37:00 [facility] Body weight 2022-06-13 50.803 kg University of 16:37:00 [facility] BMI 2022-06-13 19.84 kg/m2 University of 16:37:00 [facility] Oxygen saturation 2022-06-01 100 /min [facility] in Arterial blood 05:18:00 [facility] Pulse oximetry [place] Body temperature 2022-06-01 36.5 [place] University of 04:31:00 [facility] Systolic blood 2022-05-19 124 mm[Hg] University of pressure 16:06:00 [facility] Diastolic blood 2022-05-19 85 mm[Hg] University o f pressure 16:06:00 [facility] Heart rate 2022-05-19 103 /min University of 16:06:00 [facility] Respiratory rate 2022-05-19 18 /min University of 16:06:00 [facility] Body height 2022-05-19 160 cm University of 16:06:00 [facility] Body weight 2022-05-19 51.256 kg University of 16:06:00 [facility] BMI 2022-05-19 20.02 kg/m2 University of 16:06:00 [facility] Systolic blood 2022-05-02 115 mm[Hg] University of pressure 13:53:00 [facility] Diastolic blood 2022-05-02 80 mm[Hg] University o f pressure 13:53:00 [facility] Heart rate 2022-05-02 103 /min University of 13:53:00 [facility] Respiratory rate 2022-05-02 18 /min University of 13:53:00 [facility] Body height 2022-05-02 160 cm University of 13:53:00 [facility] Body weight 2022-05-02 51.256 kg University of 13:53:00 [facility] BMI 2022-05-02 20.02 kg/m2 University of 13:53:00 [facility] Body temperature 2022-04-21 36.22 [place] University of 20:32:00 [facility] Body height 2022-04-21 160 cm University of 20:32:00 [facility] Body weight 2022-04-21 50.349 kg University of 20:32:00 [facility] BMI 2022-04-21 19.66 kg/m2 University of 20:32:00 [facility] Systolic blood 2022-04-21 104 mm[Hg] University of pressure 15:04:00 [facility] Diastolic blood 2022-04-21 71 mm[Hg] University o f pressure 15:04:00 [facility] Heart rate 2022-04-21 110 /min University of 15:04:00 [facility] Respiratory rate 2022-04-21 18 /min University of 15:04:00 [facility] Body height 2022-04-21 157.5 cm University of 15:04:00 [facility] Body weight 2022-04-21 49.896 kg University of 15:04:00 [facility] BMI 2022-04-21 20.12 kg/m2 University of 15:04:00 [facility] Systolic blood 2022-04-11 110 mm[Hg] University of pressure 03:10:00 [facility] Diastolic blood 2022-04-11 73 mm[Hg] University o f pressure 03:10:00 [facility] Heart rate 2022-04-11 88 /min University of 03:10:00 [facility] Respiratory rate 2022-04-11 18 /min University of 03:10:00 [facility] Oxygen saturation 2022-04-11 100 /min [place] of in Arterial blood 03:10:00 [facility] by Pulse oximetry Branch Body temperature 2022-04-10 36.28 [place] University of 22:10:00 [facility] Body weight 2022-04-10 49.896 kg University of 22:10:00 [facility] BMI 2022-04-10 19.80 kg/m2 University of 22:10:00 [facility] Body height 2022-04-10 158.8 cm University of 21:48:00 [facility] Systolic blood 2022-04-06 114 mm[Hg] University of pressure 13:00:00 [facility] Diastolic blood 2022-04-06 71 mm[Hg] University o f pressure 13:00:00 [facility] Heart rate 2022-04-06 92 /min University of 13:00:00 [facility] Body temperature 2022-04-06 36.78 Linda University of 13:00:00 [facility] Respiratory rate 2022-04-06 20 /min University of 13:00:00 [facility] Oxygen saturation 2022-04-06 96 /min University of in Arterial blood 13:00:00 [facility] torito by Pulse oximetry Branch Body height 2022-04-04 161.3 cm University of 23:00:18 [facility] Body weight 2022-04-04 50.349 kg University of 23:00:18 [facility] BMI 2022-04-04 19.35 kg/m2 University of 23:00:18 [facility] Systolic blood 2022-03-28 116 mm[Hg] University of pressure 14:54:00 [facility] Diastolic blood 2022-03-28 87 mm[Hg] University o f pressure 14:54:00 [facility] Heart rate 2022-03-28 113 /min University of 14:54:00 [facility] Respiratory rate 2022-03-28 18 /min University 14:54:00 [facility] Body height 2022-03-28 160 cm University of 14:54:00 [facility] Body weight 2022-03-28 51.71 kg University of 14:54:00 [facility] BMI 2022-03-28 20.19 kg/m2 University of 14:54:00 [facility] Body temperature 2022-02-24 37 Linda University of 18:37:00 [facility] Body weight 2022-02-24 51.801 kg University of 18:37:00 [facility] BMI 2022-02-24 20.23 kg/m2 University 18:37:00 [facility] Systolic blood 2022-02-21 133 mm[Hg] University of pressure 12:51:00 [facility] Diastolic blood 2022-02-21 49 mm[Hg] University o f pressure 12:51:00 [facility] Heart rate 2022-02-21 108 /min University 12:51:00 [facility] Respiratory rate 2022-02-21 18 /min University 12:51:00 [facility] Body height 2022-02-21 160 cm [facility] 12:51:00 [facility] Oxygen saturation 2022-01-24 98 /min [facility] in Arterial blood 00:45:00 [place] [facility] [place] by Pulse oximetry Branch Head 2009-07-13 51 cm [facility] Occipital-frontal 18:51:00 [facility] torito circumference by [place] Tape measure Procedures Procedure Date / Time Performing Clinician Source Performed EXTERNAL PROVIDER RECORDS 2023-04-28 05:01:00 Doctor Parra [facility] [place] [facility] AUTHORIZATION TO RELEASE 2023-04-27 05:01:00 Doctor Parra [facility] PHI TO [facility] [place] [facility] CONSENT/REFUSAL FOR 2023-04-25 21:52:57 Rama Alexander [facility] DIAGNOSIS AND TREATMENT [place] [facility] CONSENT/REFUSAL FOR 2023-04-25 21:52:[address] [facility] DIAGNOSIS AND TREATMENT [place] [facility] [place] EMERGENCY SERVICES 2023-04-25 05:01:00 Doctor Fidel [facility] AGREEMENTS AND [place] [facility] AUTHORIZATIONS TEST, URINE 2023-03-16 20:47:[address] [facility] [place] AUTHORIZATION FOR RELEASE 2023-03-16 05:01:00 Doctor Parra [facility] [place] [facility] AUTHORIZATION FOR RELEASE 2023-03-16 05:01:00 Doctor Parra [facility] [place] [facility] XR PELVIS 3+ VW 2022-12-15 15:31:00 Arnaldo [facility] XR PELVIS 3+ VW 2022-12-15 15:31:00 Ar[facility] SESSIONS CLERK CLINIC ULTRASOUND 2022-11-25 05:01:00 Doctor Parra [facility] Name Medical [place] SESSIONS CLERK CLINIC ULTRASOUND 2022-11-25 05:01:00 Doctor Fidel [facility] [place] [facility] PATIENT FINANCIAL 2022-10-31 14:21:09 Doctor Fidel, Un [facility] POLICY [place] [facility] PATIENT FINANCIAL 2022-10-31 14:21:09 Doctor Fidel, [facility] POLICY [place] [facility] AUTHORIZATION FOR RELEASE 2022-10-07 05:01:00 Doctor Parra [facility] [place] [facility] AUTHORIZATION FOR RELEASE 2022-10-07 05:01:00 Doctor Parra [facility] [place] [facility] AUTHORIZATION FOR RELEASE 2022-09-06 06:01:00 Doctor Parra [facility] [place] [facility] AUTHORIZATION FOR RELEASE 2022-09-06 06:01:00 Doctor Parra [facility] [place] [facility] XR PELVIS 3+ VW 2022-06-16 17:07:12 Arnaldo [facility] [place] XR PELVIS 3+ VW 2022-06-16 17:07:12 [facility] CONSENT/REFUSAL FOR 2022-06-01 04:17:40 Doctor [facility] DIAGNOSIS AND TREATMENT [place] [facility] [place] CONSENT/REFUSAL FOR 2022-06-01 04:17:[address] [facility] 2022-05-31 06:01:00 Doctor Fidel, [facility] AGREEMENTS AND [place] [facility] AUTHORIZATIONS XR PELVIS 3+ VW 2022-05-19 16:43:54 [facility] XR PELVIS 3+ VW 2022-05-19 16:43:54 [facility] XR PELVIS 3+ VW 2022-04-21 20:26:51 [facility] XR HIPS 3 VW RIGHT 2022-04-11 02:02:47 [facility] PEL[facility] <3 VW 2022-04-11 02:02:47 [facility] XR PELVIS <3 VW 2022-04-11 02:02:47 [facility] XR HIPS 3 VW RIGHT 2022-04-11 02:02:47 Irasema Robledo [facility] POCT TEST 2022-04-11 01:46:00 Irasema Robledo [facility] POCT TEST 2022-04-11 01:46:00 Irasema Robledo [facility] URINALYSIS 2022-04-11 01:45:00 [facility] URINALYSIS 2022-04-11 01:45:00 [facility] COMP. METABOLIC PANEL 2022-04-10 23:02:[address] [facility] ([id number]) [facility] CBC WITH DIFF 2022-04-10 23:02:00 [facility] CBC WITH DIFF 2022-04-10 23:02:00 [facility] COMP. METABOLIC PANEL 2022-04-10 23:02:[address] [facility] ([id number]) [facility] [place] EMERGENCY SERVICES 2022-04-10 05:01:00 Doctor Unassigned, [facility] AGREEMENTS AND [place] [facility] AUTHORIZATIONS EMERGENCY DEPARTMENT 2022-04-10 05:01:00 Doctor Unassigned, [facility] DOCUMENTS [place] [facility] XR CLAVICLE COMP 2022-04-05 19:40:00 Eyad [facility] BILATERAL Medical Branch XR CLAVICLE COMP 2022-04-05 19:40:00 Lobo Castano [facility] BILATERAL [facility] URINALYSIS 2022-04-05 11:07:00 Greg [facility] URINALYSIS 2022-04-05 11:07:00 Greg [facility] CBC WITH DIFF 2022-04-05 10:24:00 Jimena [facility] BASIC METABOLIC PANEL 2022-04-05 10:24:00 [facility], K, CL, CO2, GLUCOSE, [place] [facility] BUN, CREATININE, CA) BASIC METABOLIC PANEL 2022-04-05 10:24:00 Anant Jimena [facility] (NA, K, CL, CO2, GLUCOSE, [facility] BUN, CREATININE, CA) CBC WITH DIFF 2022-04-05 10:24:00 Jimena [facility] COVID-19 (ID NOW RAPID 2022-04-05 00:38:[address] [facility] TESTING) [facility] ONLY COVID 2022-04-05 00:38:00 Jimena Ny [facility] INTERPRETATION [facility] COVID-19 (ID NOW RAPID 2022-04-05 00:38:[address] [facility] TESTING) [facility] LAB ONLY COVID 2022-04-05 00:38:00 Jimena Ny [facility] INTERPRETATION [facility] TROPONIN I 2022-04-05 00:25:00 Chou [facility] Andrea TROPONIN I 2022-04-05 00:25:00 Chou [facility] Andrea XR SHOULDER 2+ VW RIGHT 2022-04-05 00:11:00 Chou [facility] Andrea XR KNEE 3 VW LEFT 2022-04-05 00:11:00 Chou de [facility] Andrea XR FOOT 3+ VW LEFT 2022-04-05 00:11:00 Chou [facility] [place] Andrea XR PELVIS 3+ VW 2022-04-05 00:11:00 Flo [facility] XR KNEE <3 VW RIGHT 2022-04-05 00:11:00 Flo [facility] XR FOOT 3+ VW LEFT 2022-04-05 00:11:00 Chou [facility] Andrea XR KNEE <3 VW RIGHT 2022-04-05 00:11:00 Flo [facility] XR KNEE 3 VW LEFT 2022-04-05 00:11:00 Chou de [facility] Andrea XR PELVIS 3+ VW 2022-04-05 00:11:00 Flo [facility] XR SHOULDER 2+ VW RIGHT 2022-04-05 00:11:00 Chou [facility] Andrea HB ECG ROUTINE & RHYTHM 2022-04-04 23:08:36 Chou [facility] Andrea HB ECG ROUTINE & RHYTHM 2022-04-04 23:08:36 Chou [facility] Andrea HB ABO GROUPING 2022-04-04 19:55:00 Rodrigue Nolvia [facility] HB ABO GROUPING 2022-04-04 19:55:00 Rodrigue Nolvia [facility] CT TRAUMA HEAD WO 2022-04-04 19:10:01 Nolvia Husain [facility] CT TRAUMA CERVICAL SPINE 2022-04-04 19:10:01 Nolvia Husain Uni versity [facility] CONTRAST Medical Branch CT TRAUMA THORACIC SPINE 2022-04-04 19:10:01 Nolvia Husain Uni versity [facility] CONTRAST Medical Branch CT TRAUMA LUMBAR SPINE WO 2022-04-04 19:10:01 [facility] CT TRAUMA HEAD WO 2022-04-04 19:10:01 Nolvia Husain [facility] CONTRAST Medical Branch CT TRAUMA CERVICAL SPINE 2022-04-04 19:10:01 Nolvia Husain [facility] CT TRAUMA THORACIC SPINE 2022-04-04 19:10:01 Nolvia Husain Uni versity [facility] CONTRAST Medical Branch CT TRAUMA LUMBAR SPINE WO 2022-04-04 19:10:01 [facility] CT TRAUMA THORAX W 2022-04-04 19:08:26 Nolvia Husain [facility] CONTRAST Medical Branch CT TRAUMA ABDOMEN PELVIS 2022-04-04 19:08:26 Nolvia Husain [facility] CONTRAST Medical Branch CT TRAUMA THORAX W 2022-04-04 19:08:26 Nolvia Husain [facility] CONTRAST Medical Branch CT TRAUMA ABDOMEN PELVIS 2022-04-04 19:08:26 Nolvia Husain [facility] CONTRAST Medical Branch ABORH CONFIRMATION (LAB 2022-04-04 19:02:00 Nolvia Husain [facility] ONLY) Medical Branch ABORH CONFIRMATION (LAB 2022-04-04 19:02:00 Nolvia Husain [facility] ONLY) Medical Branch LIPASE 2022-04-04 18:35:00 Nolvia Husain [facility] Branch TEST, SERUM 2022-04-04 18:35:00 Nolvia Husain [facility] [place] COMP. METABOLIC PANEL 2022-04-04 18:35:00 Nolvia Husain [facility] ([id number]) Medical Branch COMP. METABOLIC PANEL 2022-04-04 18:35:00 Nolvia Husain [facility] ([id number]) Medical Branch LIPASE 2022-04-04 18:35:00 Nolvia Husain [facility] TEST, SERUM 2022-04-04 18:35:00 Nolvia Husain [facility] CBC WITH DIFF 2022-04-04 18:20:00 Nolvia Husain [facility] CBC WITH DIFF 2022-04-04 18:20:00 Nolvia Husain [facility] EMERGENCY SERVICES 2022-04-04 05:01:00 Doctor Fidel, [facility] AGREEMENTS AND [place] [facility] AUTHORIZATIONS EMERGENCY DEPARTMENT 2022-04-04 05:01:00 Doctor Rosamariasslanette, [facility] DOCUMENTS [place] [facility] [place] EMERGENCY SERVICES 2022-04-04 05:01:00 Doctor Rosamariasslanette, [facility] AGREEMENTS AND [place] [facility] AUTHORIZATIONS EMERGENCY DEPARTMENT 2022-04-04 05:01:00 Doctor Fidel, [facility] DOCUMENTS [place] [facility] [place] POCT TEST 2022-04-01 04:37:00 Deonna Melendrez [facility] POCT TEST 2022-04-01 04:37:00 Deonna Melendrez [facility] LIPASE 2022-04-01 04:36:00 Deonna Melendrez [facility] COMP. METABOLIC PANEL 2022-04-01 04:36:00 Deonna Melendrez [facility] ([id number]) [facility] [place] CBC WITH DIFF 2022-04-01 04:36:00 Deonna Melendrez [facility] URINALYSIS 2022-04-01 04:36:00 Deonna Melendrez [facility] CBC WITH DIFF 2022-04-01 04:36:00 Deonna Melendrez [facility] COMP. METABOLIC PANEL 2022-04-01 04:36:00 Deonna Melendrez [facility] ([id number]) Medical Branch URINALYSIS 2022-04-01 04:36:00 Deonna Melendrez [facility] LIPASE 2022-04-01 04:36:00 Deonna Melendrez [facility] NOTICE OF PRIVACY 2022-04-01 03:37:12 Doctor Fidel, [facility] PRACTICES [place] [facility] NOTICE OF PRIVACY 2022-04-01 03:37:12 Doctor Fidel, [facility] PRACTICES [place] [facility] CONSENT/REFUSAL FOR 2022-04-01 03:36:[address] [facility] DIAGNOSIS AND TREATMENT [place] [facility] CONSENT/REFUSAL FOR 2022-04-01 03:36:[address] [facility] DIAGNOSIS AND TREATMENT [place] [facility] [place] EMERGENCY SERVICES 2022-03-31 05:01:00 Doctor Fidel [facility] AGREEMENTS AND [place] [facility] AUTHORIZATIONS SARS-COV-2 COVID-19 2022-03-17 16:49:[address] [facility] MIKE-SUCROSE VACCINE 12 [place] [facility] YRS+, BIVALENT 0.3ML, IM, (PFIZER ARITA TOP BOOSTER) SARS-COV-2 COVID-19 2022-03-17 16:49:[address] [facility] MIKE-SUCROSE VACCINE 12 [place] [facility] YRS+, BIVALENT 0.3ML, IM, (PFIZER ARITA TOP BOOSTER) XR PELVIS 3+ VW 2022-02-24 18:13:00 Arnaldo [facility] [place] [facility] Medical Branch EXTERNAL PROVIDER RECORDS 2022-02-22 05:01:00 Doctor Parra [facility] [place] [facility] EMERGENCY SERVICES 2022-01-23 05:01:00 Doctor Parra [facility] AGREEMENTS AND [place] [facility] AUTHORIZATIONS EMERGENCY DEPARTMENT 2022-01-23 05:01:00 Doctor Fidel [facility] DOCUMENTS [place] [facility] Encounters Start End Encounter Admission Attending Care Care Encounter Source Date/Time Date/Time Type Type Clinicians Facility Department ID 2022-09-19 Outpatient [facility] [id number] [place] 17:53:01 [id number] [facility] 2022-09-19 Outpatient [facility] [id number] [place] 17:49:01 [id number] [facility] 2021-11-02 Outpatient [facility] [id number] [place] 11:00:33 [id number] [facility] 2021-07-09 Inpatient [facility] [id number] [facility] 12:46:00 14 2021-05-25 Inpatient [facility] [id number] [facility] 23:19:00 94 2021-04-30 Emergency [facility] [id number] Univers 23:08:18 ity of [facility] 2023-05-18 2023-05-18 Outpatient R ALEJANDRA MORROW [facility] U [facility] [id number] Univers 08:30:00 08:30:00 SHABBIR-HUMBERTO AVILASOL ity [facility] 2023-04-27 2023-04-27 Outpatient R HUMBERTO MROROWSOL [facility] U [facility] [id number] Univers 10:00:00 10:13:12 SHEA-HUMBERTO AVILASOL ity [facility] 2023-04-27 2023-04-27 Office Shabbir-Lashell 1.2.840.4 [id number] Univers 10:00:00 10:13:12 Visit sHumbertoAlejandra 27226.1.1 i ty of 3.104.2.7 [place] .3.365574 Medica l .8 [place] 2023-04-27 2023-04-27 Telephone Shabbir-Lashell 1.2.840.6 [id number] Univers 00:00:00 00:00:00 s, Alejandra 63425.1.1 i ty of 3.104.2.7 [place] .3.700281 Medica l .8 [place] 2023-04-27 2023-04-27 Travel 1.2.840.1 1.2.486.346 [id number] Univers 00:00:00 00:00:00 39627.1.1 350.1.13.10 ity of 3.104.2.7 4.[place].7.3.698 [place] .3.631274 084.8 Medica l .8 Branch 2023-04-25 2023-04-25 Emergency X PARVIN MSFIDE ERT [id number] Univers 17:02:00 19:29:00 DEONNA ity of [facility] 2023-04-25 2023-04-25 Emergency Parvin, 1.2.840.3 [id number] Univers 17:02:00 19:29:00 Deonna S 24443.1.1 ity of 3.104.2.7 [place] .3.008630 Medica l .8 Branch 2023-04-25 2023-04-25 Telephone Rosalinda 1.2.840.4 [id number] Univers 00:00:00 00:00:00 s, Alejandra 71330.1.1 i ty of 3.104.2.7 [place] .3.441032 Medica l .8 Branch 2023-04-25 2023-04-25 Travel 1.2.840.1 1.2.467.263 [id number] Univers 00:00:00 00:00:00 07533.1.1 350.1.13.10 ity of 3.104.2.7 4.[place].7.3.698 [place] .3.968077 084.8 Medica l .8 [place] 2023-04-18 2023-04-18 Outpatient Escobar VALVERDE [facility] [id number] Univers 14:45:00 15:22:10 SUSAN ity o f [facility] 2023-04-18 2023-04-18 Travel 1.2.840.1 1.2.262.400 [id number] Univers 00:00:00 00:00:00 22901.1.1 350.1.13.10 ity of 3.104.2.7 4.[place].7.3.698 [place] .3.987288 084.8 Medica l .8 [place] 2023-04-14 2023-04-14 Travel 1.2.840.1 1.2.501.863 [id number] Univers 00:00:00 00:00:00 74788.1.1 350.1.13.10 ity of 3.104.2.7 4.[place].7.3.698 [place] .3.464930 084.8 Medica l .8 Branch 2023-04-03 2023-04-03 Funeral Greeter Godwin Handy 1.2.840.1 [id number] Univers 14:15:00 14:15:00 Visit Lab, Gino - Vikas 56629.1.1 ity of 3.104.2.7 [place] .3.225570 Medica l .8 [place] 2023-04-03 2023-04-03 Outpatient R OLE [facility] [id number] Univers 14:15:00 11:18:40 GODWIN ity of [facility] 2023-04-03 2023-04-03 Travel 1.2.840.1 1.2.753.473 [id number] Univers 00:00:00 00:00:00 46486.1.1 350.1.13.10 ity of 3.104.2.7 4.[place].7.3.698 [place] .3.669848 084.8 Medica l .8 [place] 2023-03-30 2023-03-30 Outpatient R NICOLLE [facility] [id number] Univers 14:45:00 15:21:13 SUSAN erickson o [facility] 2023-03-30 2023-03-30 Travel 1.2.840.1 1.2.184.827 [id number] [facility] 00:00:00 00:00:00 02296.1.1 350.1.13.10 ity of 3.104.2.7 4.[place]7.3.698 [place] .3.471393 084.8 Medica l .8 [place] 2023-03-16 2023-03-16 Funeral Greeter Susan Valverde 1.2.840.1 [id number] Univers 15:45:00 16:00:00 Visit Pcp-Lab 86515.1.1 ity of 3.104.2.7 [place] .3.525018 Medica l .[facility] [place] 2023-03-16 2023-03-16 Outpatient R NICOLLE [facility] [id number] Univers 14:45:00 15:29:18 SUSAN erickson o [facility] 2023-03-16 2023-03-16 Travel 1.2.840.1 1.2.797.373 [id number] [facility] 00:00:00 00:00:00 03647.1.1 350.1.13.10 ity of 3.104.2.7 [place].7.3.698 [place] .3.962265 084.8 Medica l .8 [place] 2023-03-16 2023-03-16 Orders Doctor 1.2.840.8 [id number] Univers 00:00:00 00:00:00 Only Unassigned, 14049.1.1 ity of [place] 3.104.2.7 [place] .3.091280 Medica l .[facility] [place] 2022-12-29 2022-12-29 Patient Pcp, BOUCHRA 1.2.840.114 [id number] Univers 00:00:00 00:00:00 Secure Msg Patient EDITH 350.1.13.10 ity of Does Not HOSPITAL [place].2.686 [place] Have A [id number] [address] 2022-12-15 2022-12-15 Hospital [facility], 1.2.840.1 [id number] Univers 10:07:57 23:59:00 Encounter Bouchra 37316.1.1 it y of 3.104.2.7 [place] .3.595453 Medica l .[place] 2022-12-15 2022-12-15 [facility] [id number] Univers 10:30:00 11:21:10 BOUCHRA ity of [facility] 2022-12-15 2022-12-15 Office [facility], 1.2.840.9 [id number] Univers 10:30:00 11:21:10 Visit Bouchra 39682.1.1 ity of 3.104.2.7 [place] .3.124388 Medica l .8 [place] 2022-12-15 2022-12-15 Travel 1.2.840.1 1.2.064.691 [id number] Univers 00:00:00 00:00:00 28118.1.1 350.1.13.10 ity of 3.104.2.7 4.[place].7.3.698 [place] .3.060879 084.8 Medica l .8 [place] 2022-12-05 2022-12-05 Outpatient R SELF, [facility] [id number] Univers 08:45:00 10:19:40 JAMES ity o f [facility] 2022-12-05 2022-12-05 Travel 1.2.840.1 1.2.043.852 [id number] Univers 00:00:00 00:00:00 93673.1.1 350.1.13.10 ity of 3.104.2.7 4.[place].7.3.698 [place] .3.029189 084.8 Medica l .8 [place] 2022-12-02 2022-12-02 Outpatient R [facility] [id number] Univers 10:45:00 10:45:00 ity of [facility] 2022-11-25 2022-11-25 Outpatient R ALEJANDRA MORROW [facility] U [facility] [id number] Univers 08:30:00 09:09:48 ALEJANDRA MORROW ity of [facility] 2022-11-25 2022-11-25 Office Rosalinda 1.2.840.2 [id number] Univers 08:30:00 09:09:48 Visit s Alejandra 50439.1.1 i ty of 3.104.2.7 [place] .3.028221 Medica l .8 [place] 2022-11-25 2022-11-25 Travel 1.2.840.1 1.2.010.144 [id number] Univers 00:00:00 00:00:00 64508.1.1 350.1.13.10 ity of 3.104.2.7 4.[place].7.3.698 [place] .3.109903 084.8 Medica l .8 [place] 2022-11-25 2022-11-25 Orders Doctor 1.2.840.8 [id number] Univers 00:00:00 00:00:00 Only Unassigned, 92269.1.1 ity of [place] 3.104.2.7 [place] .3.964766 Medica l .[facility] [place] 2022-10-31 2022-10-31 Outpatient R LILIANA [facility] [id number] Univers 09:30:00 10:46:48 [employer] ity [facility] 2022-10-31 2022-10-31 Orders Doctor 1.2.840.3 [id number] Univers 00:00:00 00:00:00 Only Unassigned, 53353.1.1 ity of [place] 3.104.2.7 [place] .3.581313 Medica l .8 [place] 2022-10-31 2022-10-31 Travel 1.2.840.1 1.2.027.201 [id number] Univers 00:00:00 00:00:00 38320.1.1 350.1.13.10 ity of 3.104.2.7 4.[place].7.3.698 [place] .3.578888 084.8 Medica l .8 [place] 2022-10-07 2022-10-07 Orders Doctor 1.2.840.5 [id number] Univers 00:00:00 00:00:00 Only Unassigned, 21101.1.1 ity of [place] 3.104.2.7 [place] .3.782543 Medica l .8 [place] 2022-09-19 2022-09-19 Outpatient Escobar FORD [facility] [id number] Univers 08:00:00 09:02:03 [facility] 2022-09-19 2022-09-19 Travel 1.2.840.1 1.2.233.827 [id number] Univers 00:00:00 00:00:00 55079.1.1 350.1.13.10 ity of 3.104.2.7 4.[place].7.3.698 [place] .3.573034 084.8 Medica l .8 [place] 2022-09-09 2022-09-09 Patient Doctor BOUCHRA 1.2.840.114 [id number] Univers 00:00:00 00:00:00 Secure Msg Unassigned, EDITH 350.1.13.10 ity of [place] [facility] 4.2.7.2.686 Harley as [id number] [address] 2022-09-062022-09-06 Orders Doctor 1.2.840.2 [id number] Univers 00:00:00 00:00:00 Only Unassigned, 50487.1.1 ity of [place] 3.104.2.7 [place] .3.912833 Medica l .[facility] [place] 2022-08-22 2022-08-22 Outpatient R SELF, [facility] [id number] Univers 10:15:00 12:05:25 JAMES braxton f [facility] 2022-08-22 2022-08-22 Travel 1.2.840.1 1.2.791.827 [id number] Univers 00:00:00 00:00:00 88014.1.1 350.1.13.10 ity of 3[place]104.2.[place] 4.[place] .3.072955 084.8 Medica l .8 [place] 2022-07-25 2022-07-25 Outpatient R SELF, [facility] [id number] Univers 08:45:00 10:27:30 JAMES anderson [facility] 2022-07-25 2022-07-25 Travel 1.2.840.1 1.2.574.943 [id number] Univers 00:00:00 00:00:00 95875.1.1 350.1.13.10 ity of 3[place]104.2[place] .3.526034 084.8 Medica l .8 [place] 2022-07-15 2022-07-15 Emergency EM KRISS GuzmánTB EO3 [id number] [facility] 19:20:00 21:08:00 Jose Moncada [facility] [place] 2022-07-04 2022-07-04 Emergency EM Eric Moore HCAP[facility] GAYLA LA00 [id number] [facility] 16:22:00 17:00:00 83 [facility] 2022-06-16 2022-06-16 [facility], 1.2.840.1 [id number] Univers 10:58:02 23:59:00 Encounter Bouchra 88499.1.1 it y of 3.104.2.7 [place] .3.106673 [facility] [place] 2022-06-16 2022-06-16 [facility] [id number] Univers 10:20:00 11:48:13 BOUCHRA ity of [facility] 2022-06-16 2022-06-16 Office Arnaldo, 1.2.840.4 [id number] Univers 10:20:00 11:48:13 Visit Bouchra 27710.1.1 ity of 3.104.2.7 [place] .3.482304 [facility] [place] 2022-06-16 2022-06-16 Travel 1.2.840.1 1.2.868.994 0690 3210 Univers 00:00:00 00:00:00 60574.1.1 350.1.13.10 ity of 3.104.2.[place].698 [place].00[place] 084.8 [facility] [facility] [place] 2022-06-13 2022-06-13 Outpatient R SELF, [facility] [id number] Univers 11:00:00 11:34:17 JAMES ity o f [facility] 2022-06-13 2022-06-13 Travel 1.2.840.1 1.2.832.473 3336 2526 Univers 00:00:00 00:00:00 75273.1.1 350.1.13.10 ity of 3.104.2.7 [place]3.698 [place].416[place] 084.8 [facility] [facility] [place] 2022-05-31 2022-06-01 Emergency X PARVIN [facility] ERT [id number] Univers 22:37:00 00:11:00 DEONNA ity of [facility] 2022-05-31 2022-06-01 Emergency Parvin, 1.2.840.2 [id number] [id number] Univers 22:37:00 00:11:00 Deonna Lopez 25004.1.1 ity of 3.104.2.7 [place] .3.660370 [facility] [place] 2022-05-31 2022-05-31 Travel 1.2.840.1 1.2.316.982 1360 8684 Univers 00:00:00 00:00:00 40552.1.1 350.1.13.10 ity of 3.104.2.[place].698 [place] 084.8 [facility] [facility] [place] 2022-05-23 2022-05-[address] [facility] [id number] Univers 10:15:00 10:15:00 JAMES ity o [facility] 2022-05-19 2022-05-19 [facility], 1.2.840.3 [id number] [facility] 10:33:33 23:59:00 Encounter Bouchra 79652.1.1 it y of 3.104.2.7 [place] .3.600136 [facility] [place] 2022-05-19 2022-05-19 [facility], 1.2.840.6 [id number] [id number] Univers 12:50:00 12:50:00 Visit Bouchra 70009.1.1 ity of 3.104.2.7 [place] .3.100149 [facility] [place] 2022-05-19 2022-05-19 Outpatient [facility] [id number] [facility] 12:50:00 12:42:46 BOUCHRA itadrian of [facility] 2022-05-19 2022-05-19 Travel 1.2.840.1 1.2.534.527 3370 6719 Univers 00:00:00 00:00:00 86725.1.1 350.1.13.10 ity of 3.104.2.7 [place].3.698 [place].265[place] 084.8 [facility] [facility] [place] 2022-05-02 2022-05-02 Outpatient R SELF, [facility] [id number] Univers 08:45:00 09:32:43 JAMES bernaladrian o [facility] 2022-05-02 2022-05-02 Travel 1.2.840.1 1.2.210.457 6086 1874 Univers 00:00:00 00:00:00 55441.1.1 350.1.13.10 ity of 3.104.2.7 [place]7.3.698 [place]3.4494[place] 084.8 [facility] [place] 2022-04-21 2022-04-21 Outpatient [facility] [id number] Univers 15:08:38 23:59:00 BOUCHRA ity of [facility] 2022-04-21 2022-04-21 [facility], 1.2.840.2 [id number] Univers 15:08:38 23:59:00 Encounter Bouchra 48495.1.1 it y of 3.104.2.7 [place] .3.450705 [facility] [place] 2022-04-21 2022-04-21 [facility], 1.2.840.5 [id number] [id number] Univers 15:20:00 16:19:45 Visit Bouchra 76740.1.1 ity of 3.104.2.7 [place] .3.514248 [facility] [place] 2022-04-21 2022-04-21 Travel 1.2.840.1 1.2.426.950 9787 0847 Univers 00:00:00 00:00:00 61357.1.1 350.1.13.10 ity of 3.104.2.7 [place]7.3.698 [place]3.2194[place] 084.8 [facility] [place] 2022-04-10 2022-04-10 Emergency X VENKAT, [facility] ERT [id number] Univers 17:11:00 22:14:00 RIASEMA ity of [facility] 2022-04-10 2022-04-10 Emergency Robledo, 1.2.840.4 [id number] Univers 17:11:00 22:14:00 Irasema 63654.1.1 ity of 3.104.2.7 [place] .3.733088 [facility] [place] 2022-04-10 2022-04-10 Urgent MariShivani 1.2.840.1 94901 [id number] Univers 16:40:00 18:22:07 Care Nurse, [facility] 22304.1.1 ity of 3.104.2.7 [place] .3.399330 [facility] [place] 2022-04-10 2022-04-10 [facility] [id number] Univers 16:40:00 16:40:00 SHIVANI erickson o f [facility] 2022-04-10 2022-04-10 Travel 1.2.840.1 1.2.649.377 5234 4834 Univers 00:00:00 00:00:00 00476.1.1 350.1.13.10 ity of 3.104.2.7 [place].3.698 [place]3.828155 084.8 [facility] [place] 2022-04-08 2022-04-08 Transition Moise, 1.2.840.5 [id number] Univers 00:00:00 00:00:00 of Care Negrita 84343.1.1 i ty of 3.104.2.7 [place] .3.888913 [facility] [place] 2022-04-04 2022-04-07 Hospital Person, 1.2.840.8 [id number] [id number] Univers 17:33:00 17:00:00 Encounter Keagan 40671.1.1 it y of 3.104.2.7 [place] .3.144436 [facility] [place] 2022-04-06 2022-04-06 [facility], 1.2.840.0 [id number] Univers 00:00:00 00:00:00 Management Care 42802.1.1 i ty of Transition 3.104.2.7 Harley as .3.092339 [facility] [place] 2022-04-04 2022-04-04 [facility] [id number] Univers 12:41:00 16:56:00 NOLVIA ity of [facility] 2022-04-04 2022-04-04 [facility] [id number] Univers 12:41:00 16:56:00 NOLVIA ity of [facility] 2022-04-04 2022-04-04 Emergency Husain, 1.2.840.3 [id number] [id number] Univers 12:41:00 16:56:00 Nolvia 51008.1.1 ity of 3.104.2.7 [place] .3.797507 [facility] [place] 2022-04-04 2022-04-04 Travel 1.2.840.1 1.2.485.899 5273 3840 Univers 00:00:00 00:00:00 76182.1.1 350.1.13.10 ity of 3.104.2.7 [place].3.698 [place]3.5585[place] 084.8 [facility] [place] 2022-03-31 2022-04-01 Emergency X PARVIN, [facility] ERT [id number] Univers 22:46:00 01:29:00 DEONNA ity of [facility] 2022-03-31 2022-04-01 Emergency Melendrez, 1.2.840.6 [id number] Univers 22:46:00 01:29:00 Deonna Chidi 96038.1.1 ity of 3.104.2.7 [place] .3.381025 [facility] [place] 2022-03-31 2022-03-31 Orders Doctor 1.2.840.8 [id number] Univers 00:00:00 00:00:00 Only Unassigned, 66100.1.1 ity of [place] 3.104.2.7 [place] .3.341593 [facility] [place] 2022-03-31 2022-03-31 Travel 1.2.840.1 1.2.319.319 0707 0137 Univers 00:00:00 00:00:00 25406.1.1 350.1.13.10 ity of 3.104.2.7 [place]7.3.698 [place]3.528375 084.8 [facility] [place] 2022-03-28 2022-03-28 Outpatient R SELF, [facility] [id number] Univers 10:15:00 12:05:24 JAMES ity o f [facility] 2022-03-28 2022-03-28 Travel 1.2.840.1 1.2.352.933 9786 9783 Univers 00:00:00 00:00:00 84315.1.1 350.1.13.10 ity of 3.104.2.7 4.[place]7.3.698 [place] .3.445542 084.8 [facility] [place] 2022-03-17 2022-03-17 Imm/Inj Vignesh Mack P 1.2.840.1 [id number] Univers 11:30:00 12:25:54 Visit Janice Orosco 13015.1.1 ity of 3.104.2.7 [place] .3.178395 [facility] [place] 2022-03-17 2022-03-17 Outpatient R FREDERICK [facility] [id number] [facility] 10:30:00 11:13:04 VIGNESH ity of [facility] 2022-03-17 2022-03-17 Travel 1.2.840.1 1.2.629.915 1121 0034 Univers 00:00:00 00:00:00 53505.1.1 350.1.13.10 ity of 3.104.2.7 [place]7.3.698 [place] .3.749613 084.8 [facility] [place] 2022-02-24 2022-02-24 [facility], 1.2.840.6 [id number] Univers 13:02:19 23:59:00 Encounter Bouchra 05165.1.1 it y of 3.104.2.7 [place] .3.969218 [facility] [place] 2022-02-24 2022-02-24 [facility], 1.2.840.8 [id number] Univers 13:02:19 23:59:00 Encounter Bouchra 94664.1.1 it y of 3.104.2.7 [place] .3.138061 [facility] [place] 2022-02-24 2022-02-24 [facility] [id number] Univers 13:00:00 14:33:28 BOUCHRA itadrian of [facility] 2022-02-24 2022-02-24 Office Arnaldo, 1.2.840.2 [id number] 915 [id number] Univers 13:00:00 14:33:28 Visit Bouchra 97521.1.1 ity of 3.104.2.7 [place] .3.178679 [facility] [place] 2022-02-24 2022-02-24 [facility] [id number] Univers 13:00:00 13:00:00 BOUCHRA ity of [facility] 2022-02-24 2022-02-24 Travel 1.2.840.1 1.2.914.652 5271 4498 Univers 00:00:00 00:00:00 52451.1.1 350.1.13.10 ity of 3.104.2.7 [place]7.3.698 [place] .3.969097 084.8 [facility] [place] 2022-02-22 2022-02-22 Orders Doctor 1.2.840.1 [id number] Univers 00:00:00 00:00:00 Only Unassigned, 35927.1.1 ity of [place] 3.104.2.7 [place] .3.756152 [facility] [place] 2022-02-22 2022-02-22 Orders Doctor 1.2.840.9 [id number] Univers 00:00:00 00:00:00 Only Unassigned, 61171.1.1 ity of [place] 3.104.2.7 [place] .3.991693 [facility] [place] 2022-02-21 2022-02-21 Outpatient R REYNALDO, [facility] [id number] Univers 08:00:00 08:48:33 JMAES ity o f [facility] 2022-02-21 2022-02-21 Travel 1.2.840.1 1.2.310.918 4223 9562 Univers 00:00:00 00:00:00 86304.1.1 350.1.13.10 ity of 3.104.2.7 4.2.7.3.698 [place] .3.268582 084.8 [facility] [place] 2022-02-21 2022-02-21 Travel 1.2.840.1 1.2.435.338 8095 9562 Univers 00:00:00 00:00:00 07308.1.1 350.1.13.10 ity of 3.104.2.7 4.2.7.3.698 [place] .3.191860 084.8 [facility] [place] 2022-01-23 2022-01-23 Emergency X CHECO, K [facility] ERT [id number] Univers 19:42:00 21:04:00 ity of [facility] 2022-01-23 2022-01-23 Emergency Checo, K 1.2.840.4 [id number] Univers 19:42:00 21:04:00 Bree 61249.1.1 ity of 3.104.2.7 [place] .3.915438 [facility] [place] 2022-01-23 2022-01-23 Emergency Checo, K 1.2.840.1 [id number] Univers 19:42:00 21:04:00 Bree 33049.1.1 ity of 3.104.2.7 [place] .3.231329 [facility] [place] 2022-01-23 2022-01-23 Travel 1.2.840.1 1.2.393.363 8300 2965 Univers 00:00:00 00:00:00 30583.1.1 350.1.13.10 ity of 3.104.2.7 4.2.7.3.698 [place] .3.877147 084.8 [facility] [place] 2022-01-23 2022-01-23 Travel 1.2.840.1 1.2.610.870 7468 2965 Univers 00:00:00 00:00:00 37928.1.1 350.1.13.10 ity of 3.104.2.7 4.2.7.3.698 [place] .3.002062 084.8 [facility] [place] 2022-01-17 2022-01-17 Outpatient R SELF, [facility] [id number] Univers 10:15:00 11:23:04 JAMES erickson o f [facility] 2022-01-17 2022-01-17 Outpatient R SELF, [facility] [id number] Univers 10:15:00 11:23:04 JAMES erickson o f [facility] 2022-01-17 2022-01-17 Travel 1.2.840.1 1.2.194.963 9537 6960 Univers 00:00:00 00:00:00 61625.1.1 350.1.13.10 ity of 3.104.2.7 4.[place].7.3.698 [place] .3.460317 084.8 [facility] [place] 2022-01-17 2022-01-17 Travel 1.2.840.1 1.2.187.598 6515 6960 Univers 00:00:00 00:00:00 76106.1.1 350.1.13.10 ity of 3.104.2.7 4.2.7.3.698 [place] .3.387408 084.8 [facility] [place] 2021-12-31 2021-12-31 Outpatient R FISH, ASH [facility] [id number] Univers 16:00:00 17:22:54 ity of [facility] 2021-12-31 2021-12-31 Office Fish, Ash 1.2.840.1 [id number] Univers 16:00:00 17:22:54 Visit Adum, Maggie L 43857.1.1 ity of 3.104.2.7 [place] .3.835926 [facility] [place] 2021-12-31 2021-12-31 Office Fish, Ash 1.2.840.2 [id number] Univers 16:00:00 17:22:54 Visit Adum, Maggie L 06381.1.1 ity of 3.104.2.7 [place] .3.974297 [facility] [place] 2021-12-31 2021-12-31 Outpatient R ASH RAMIREZ [facility] [id number] Univers 16:00:00 16:00:00 ity of [facility] 2021-12-31 2021-12-31 Travel 1.2.840.1 1.2.566.145 7121 7179 Univers 00:00:00 00:00:00 73255.1.1 350.1.13.10 ity of 3.104.2.7 4.2.7.3.698 [place] .3.877339 084.8 [facility] [place] 2021-12-31 2021-12-31 Travel 1.2.840.1 1.2.491.372 7255 7179 Univers 00:00:00 00:00:00 30244.1.1 350.1.13.10 ity of 3.104.2.7 4.2.7.3.698 [place] .3.431677 084.8 [facility] [place] 2021-12-20 2021-12-20 Outpatient R REYNALDO, [facility] [id number] Univers 10:30:00 11:58:18 JAMES ity o f [facility] 2021-12-20 2021-12-20 Travel 1.2.840.1 1.2.998.030 8666 9777 Univers 00:00:00 00:00:00 51384.1.1 350.1.13.10 ity of 3.104.2.7 4.2.7.3.698 [place] .3.005196 084.8 [facility] [place] 2021-12-20 2021-12-20 Travel 1.2.840.1 1.2.685.374 9679 9777 Univers 00:00:00 00:00:00 15921.1.1 350.1.13.10 ity of 3.104.2.7 4.2.7.3.698 [place] .3.491138 084.8 [facility] [place] 2021-12-20 2021-12-20 Travel 1.2.840.1 1.2.857.850 2703 9777 Univers 00:00:00 00:00:00 98264.1.1 350.1.13.10 ity of 3.104.2.7 4.2.7.3.698 [place] .3.457004 084.8 [facility] [place] 2021-12-13 2021-12-13 [facility] [id number] Univers 08:00:00 08:00:00 HANDY ity [facility] 2021-12-06 2021-12-06 Urgent Shivani Guerra 1.2.840.1 02696 [id number] [id number] Univers 12:00:00 12:16:45 Akiko Gonzalez 49554.1.1 ity of 3.104.2.7 [place] .3.613988 [facility] [place] 2021-12-06 2021-12-06 Urgent Shivani Guerra 1.2.840.1 75133 02503 [id number] Univers 12:00:00 12:16:45 Akiko Gonzalez 44677.1.1 ity of 3.104.2.7 [place] .3.946132 [facility] [place] 2021-12-06 2021-12-06 [facility] [id number] Univers 12:00:00 12:16:45 AKIKO ity [facility] 2021-12-06 2021-12-06 Urgent Shivani Guerra 1.2.840.1 24914 06429 [id number] Univers 12:00:00 12:16:45 Akiko Gonzalez 34789.1.1 ity of 3.104.2.7 [place] .3.043616 [facility] [place] 2021-12-06 2021-12-06 Travel 1.2.840.1 1.2.922.583 0769 2730 Univers 00:00:00 00:00:00 12093.1.1 350.1.13.10 ity of 3.104.2.7 4.2.7.3.698 [place] .3.592444 084.8 [facility] [place] 2021-12-06 2021-12-06 Travel 1.2.840.1 1.2.735.135 6660 2730 Univers 00:00:00 00:00:00 20882.1.1 350.1.13.10 ity of 3.104.2.7 4.2.7.3.698 [place] .3.028458 084.8 [facility] [place] 2021-12-06 2021-12-06 Travel 1.2.840.1 1.2.693.563 3511 2730 Univers 00:00:00 00:00:00 21605.1.1 350.1.13.10 ity of 3.104.2.7 4.2.7.3.698 [place] .3.930006 084.8 [facility] [place] 2021-11-26 2021-11-26 Office Fish, Ash 1.2.840.2 [id number] Univers 15:00:00 15:40:48 Visit 55152.1.1 ity of 3.104.2.7 [place] .3.902063 [facility] [place] 2021-11-26 2021-11-26 Outpatient R FISHANTONION [facility] [id number] Univers 15:00:00 15:40:48 ity of [facility] 2021-11-26 2021-11-26 Office Fish, Ash 1.2.840.8 [id number] Univers 15:00:00 15:40:48 Visit 05015.1.1 ity of 3.104.2.7 [place] .3.001563 [facility] [place] 2021-11-26 2021-11-26 Outpatient R FISHANTONION [facility] [id number] Univers 15:00:00 15:00:00 ity of [facility] 2021-11-26 2021-11-26 Travel 1.2.840.1 1.2.527.999 4488 4215 Univers 00:00:00 00:00:00 62770.1.1 350.1.13.10 ity of 3.104.2.7 4.2.7.3.698 [place] .3.711895 084.8 [facility] [place] 2021-11-26 2021-11-26 Travel 1.2.840.1 1.2.592.928 1657 4215 Univers 00:00:00 00:00:00 50826.1.1 350.1.13.10 ity of 3.104.2.7 4.2.7.3.698 [place] .3.117709 084.8 [facility] [place] 2021-11-23 2021-11-23 Outpatient R ASH RAMIREZ [facility] [id number] Univers 14:00:00 14:00:00 ity of [facility] 2021-11-19 2021-11-19 [facility], 1.2.840.3 [id number] [id number] Univers 17:58:13 23:59:00 Encounter Vania 82311.1.1 it y of 3.104.2.7 [place] .3.050506 [facility] [place] 2021-11-19 2021-11-19 Outpatient R LOGAN [facility] [id number] Univers 17:58:13 23:59:00 RANIA ity of [facility] 2021-11-19 2021-11-19 [facility] 1.2.246.356 2457 4616 Univers 17:58:13 23:59:00 Encounter IS Decisions 350.1.13.10 ity of [place] 4.2.7.2.686 Harley as OLIVIA?BLEA [phone] Me aidee [place] [address] [place] [facility] 2021-11-19 2021-11-19 [facility], 1.2.840.7 [id number] Univers 17:58:13 23:59:00 Encounter Vania 93942.1.1 it y of 3.104.2.7 [place] .3.098709 [facility] [place] 2021-11-19 2021-11-[address] [facility], 1.2.840.8 [id number] Univers 17:20:00 18:04:46 Care Vania 86182.1.1 ity of 3.104.2.7 [place] .3.849137 [facility] [place] 2021-11-19 2021-11-19 Urgent Ebrahim, [facility] 1.2.840.114 11192 [id number] Univers 17:20:00 18:04:46 Care Vania HEALTH 350.1.13.10 it y of [place] 4.2.7.2.686 Harley as OLIVIA?BLEA [id number] Va dical [facility] [address] [place] [facility] 2021-11-19 2021-11-19 Urgent Ebrahim, 1.2.840.4 [id number] Univers 17:20:00 18:04:46 Care Vania 47467.1.1 ity of 3.104.2.7 [place] .3.017899 [facility] [place] 2021-11-19 2021-11-19 Travel 1.2.840.1 1.2.552.782 4976 4086 Univers 00:00:00 00:00:00 06828.1.1 350.1.13.10 ity of 3.104.2.7 4.2.7.3.698 [place] .3.439464 084.8 [facility] [place] 2021-11-19 2021-11-19 Travel 1.2.840.1 1.2.209.773 1226 4086 Univers 00:00:00 00:00:00 85171.1.1 350.1.13.10 ity of 3.104.2.7 4.2.7.3.698 [place] .3.402869 084.8 [facility] [place] 2021-11-17 2021-11-17 Outpatient LUCINDA PHAN [facility] [id number] Univers 14:45:00 14:45:00 ity of [facility] 2021-11-17 2021-11-17 Outpatient LUCINDA PHAN [facility] [id number] Univers 14:45:00 14:45:00 ity of [facility] 2021-11-16 2021-11-16 Telephone Lucinda Wills 1.2.840.5 [id number] Univers 00:00:00 00:00:00 Cam 79602.1.1 ity of 3.104.2.7 [place] .3.115859 [facility] 2021-11-16 2021-11-16 Telephone Lucinda Wills 1.2.840.7 [id number] Univers 00:00:00 00:00:00 Cam 30833.1.1 ity of 3.104.2.7 [place] .3.347258 [facility] 2021-11-16 2021-11-16 Telephone Lucinda Wills 1.2.840.6 [id number] Univers 00:00:00 00:00:00 Cam 10748.1.1 ity of 3.104.2.7 [place] .3.010083 [facility] [place] 2021-11-08 2021-11-08 Outpatient R REYNALDO, [facility] [id number] Univers 11:15:00 11:40:32 JAMES anderson [facility] 2021-11-08 2021-11-08 Travel 1.2.840.1 1.2.504.821 2493 9142 Univers 00:00:00 00:00:00 33187.1.1 350.1.13.10 ity of 3.104.2.7 4.2.7.3.698 [place] .3.024590 084.8 [facility] [place] 2021-11-08 2021-11-08 Travel 1.2.840.1 1.2.583.765 3548 9142 Univers 00:00:00 00:00:00 36486.1.1 350.1.13.10 ity of 3.104.2.7 4.2.7.3.698 [place] .3.830116 084.8 [facility] [place] 2021-11-08 2021-11-08 Travel 1.2.840.1 1.2.899.561 3677 9142 Univers 00:00:00 00:00:00 95728.1.1 350.1.13.10 ity of 3.104.2.7 4.2.7.3.698 [place] .3.907103 084.8 [facility] [place] 2021-10-29 2021-10-29 Office Lucinda Wills 1.2.840.6 [id number] Univers 13:00:00 13:28:21 Visit Cam 57122.1.1 ity of 3.104.2.7 [place] .3.725230 [facility] [place] 2021-10-29 2021-10-29 Office Lucinda Wills 1.2.840.1 [id number] Univers 13:00:00 13:28:21 Visit Cam 47392.1.1 ity of 3.104.2.7 [place] .3.422347 [facility]ica [facility] .[facility] [place] 2021-10-29 2021-10-29 Outpatient R LUCINDA WILLS [facility] [id number] Univers 13:00:00 13:28:21 ity of [facility] 2021-10-29 2021-10-29 Office Lucinda Wills 1.2.840.5 [id number] Univers 13:00:00 13:28:21 Visit Cam 56187.1.1 ity of 3.104.2.7 [place] .3.570865 [facility] .8 [place] 2021-10-29 2021-10-29 Outpatient R LUCINDA WILLS [facility] [id number] Univers 13:00:00 13:00:00 ity of [facility] 2021-10-29 2021-10-29 Outpatient R LUCINDA WILLS [facility] [id number] Univers 13:00:00 13:00:00 ity of [facility] 2021-10-29 2021-10-29 Travel 1.2.840.1 1.2.809.086 [id number] [id number] Univers 00:00:00 00:00:00 69655.1.1 350.1.13.10 ity of 3.104.2.7 4.[place].7.3.698 [place] .3.831977 084.8 [facility] .8 [place] 2021-10-29 2021-10-29 Travel 1.2.840.1 1.2.748.521 [id number] [id number] Univers 00:00:00 00:00:00 93220.1.1 350.1.13.10 ity of 3.104.2.7 4.[place].7.3.698 [place] .3.420703 084.8 [facility] l .8 [place] 2021-10-29 2021-10-29 Travel 1.2.840.1 1.2.054.658 6705 6547 [facility] 00:00:00 00:00:00 38780.1.1 350.1.13.10 ity of 3.104.2.7 4.2.7.3.698 [place] .3.768736 084.8 [facility] .[facility] [place] 2021-10-27 2021-10-27 Outpatient R SHIVANI VAUGHN [facility] [id number] Univers 14:30:00 15:05:35 SHIVANI VAUGHN [facility] 2021-10-27 2021-10-27 [facility] [id number] Univers 14:30:00 14:30:00 SHIVANI VAUGHN [facility] 2021-10-27 2021-10-27 Funeral Greeter Pat Patel 1.2.840.1 [id number] [facility] 12:30:00 12:45:00 Visit Pcp-Lab 31412.1.1 ity of 3.104.2.7 [place] .3.993519 [facility] .[facility] [place] 2021-10-27 2021-10-27 Funeral Greeter Pat Patel 1.2.840.1 [id number] [facility] 12:30:00 12:45:00 Visit Pcp-Lab 63923.1.1 ity of 3.104.2.7 [place] .3.626254 [facility] .[facility] [place] 2021-10-27 2021-10-27 Funeral Greeter Pat Patel 1.2.840.1 [id number] [facility] 12:30:00 12:45:00 Visit Pcp-Lab 24024.1.1 ity of 3.104.2.7 [place] .3.328481 [facility] .[facility] [place] 2021-10-27 2021-10-27 Funeral Greeter Jorge Pat 1.2.840.1 [id number] [facility] 12:30:00 12:45:00 Visit Pcp-Lab 88392.1.1 ity of 3.104.2.7 [place] .3.645635 [facility] .[facility] [place] 2021-10-27 2021-10-27 Travel 1.2.840.[address] [place] [address] 00:00:00 00:00:00 52999.1.1 350.1.13.10 ity of 3.104.2.7 4.2.7.3.698 [place] .3.049950 084.8 [facility] l .8 [place] 2021-10-27 2021-10-27 Travel 1.2.840.[address] [place] [address] 00:00:00 00:00:00 27146.1.1 350.1.13.10 ity of 3.104.2.7 4.2.7.3.698 [place] .3.790754 084.8 [facility] l .[facility] [place] 2021-10-27 2021-10-27 Travel 1.2.840.1 1.2.458.272 3502 [id number] [facility] 00:00:00 00:00:00 80369.1.1 350.1.13.10 ity of 3.104.2.7 4.2.7.3.698 [place] .3.659592 084.8 [facility] l .8 [place] 2021-10-27 2021-10-27 Travel 1.2.840.1 1.2.589.566 0210 7104 [facility] 00:00:00 00:00:00 84764.1.1 350.1.13.10 ity of 3.104.2.7 4.2.7.3.698 [place] .3.906285 084.8 [facility] .[facility] [place] 2021-10-06 2021-10-06 Outpatient R SHIVANI VAUGHN [facility] [id number] Univers 15:15:00 16:31:02 SHIVNAI VAUGHN ity [facility] 2021-10-06 2021-10-06 Travel 1.2.840.1 1.2.323.275 [id number] 3199 [facility] 00:00:00 00:00:00 84918.1.1 350.1.13.10 ity of 3.104.2.7 4.2.7.3.698 [place] .3.808047 084.8 [facility] l .[facility] [place] 2021-10-06 2021-10-06 Travel 1.2.840.1 1.2.009.621 9287 3199 [facility] 00:00:00 00:00:00 45653.1.1 350.1.13.10 ity of 3.104.2.7 4.2.7.3.698 [place] .3.572928 084.8 [facility] l .[facility] [place] 2021-10-06 2021-10-06 Travel 1.2.840.1 1.2.883.153 3610 3199 [facility] 00:00:00 00:00:00 56545.1.1 350.1.13.10 ity of 3.104.2.7 4.2.7.3.698 [place] .3.325906 084.8 [facility] .[facility] [place] 2021-09-13 2021-09-13 Outpatient R SELF, [facility] [id number] Univers 11:00:00 11:00:00 JAMES erickson o f [facility] 2021-09-02 2021-09-02 Outpatient R GEOVANNI, [facility] [id number] Univers 13:00:00 13:00:00 HONORIO ity [facility] 2021-09-02 2021-09-02 Outpatient R GALARZA, [facility] [id number] Univers 13:00:00 13:00:00 HONORIO ity [facility] 2021-09-02 2021-09-02 Travel 1.2.840.1 1.2.718.446 2522 3611 [facility] 00:00:00 00:00:00 79171.1.1 350.1.13.10 ity of 3.104.2.7 4.2.7.3.698 [place] .3.771603 084.8 [facility] l .[facility] [place] 2021-09-02 2021-09-02 Travel 1.2.840.1 1.2.037.310 2981 3611 [facility] 00:00:00 00:00:00 24761.1.1 350.1.13.10 ity of 3.104.2.7 4.2.7.3.698 [place] .3.363826 084.8 [facility] l .[facility] [place] 2021-09-02 2021-09-02 Travel 1.2.840.1 1.2.796.425 9100 3611 [facility] 00:00:00 00:00:00 88398.1.1 350.1.13.10 ity of 3.104.2.7 4.2.7.3.698 [place] .3.212251 084.8 [facility] .[facility] [place] 2021-08-26 2021-08-26 Outpatient R ARNALDO, [facility] [id number] Univers 12:59:32 23:59:00 BOUCHRA erickson of [facility] 2021-08-26 2021-08-26 [facility], 1.2.840.5 [id number] Univers 12:59:32 23:59:00 Encounter Bouchra Pizano50.1.1 it y of 3.104.2.7 [place] .3.305595 [facility] [place] 2021-08-26 2021-08-26 [facility], 1.2.840.3 [id number] 91 [id number] Univers 12:59:32 23:59:00 Encounter Bouchra 64092.1.1 it y of 3.104.2.7 [place] .3.932395 [facility] [place] 2021-08-26 2021-08-26 [facility], 1.2.840.3 [id number] Univers 12:59:32 23:59:00 Encounter Bouchra 89144.1.1 it y of 3.104.2.7 [place] .3.912595 [facility] [place] 2021-08-26 2021-08-26 Outpatient R ARNALDO [facility] [id number] Univers 13:00:00 13:47:55 BOUCHRA ity of [facility] 2021-08-26 2021-08-26 Office Arnaldo, 1.2.840.5 [id number] [id number] Univers 13:00:00 13:47:55 Visit Bouchra 27479.1.1 ity of 3.104.2.7 [place] .3.101730 [facility] [place] 2021-08-26 2021-08-26 Outpatient Escobar MCINTOSH [facility] [id number] Univers 13:00:00 13:47:55 BOUCHRA ity of [facility] 2021-08-26 2021-08-26 Office Arnaldo, 1.2.840.0 [id number] [id number] Univers 13:00:00 13:47:55 Visit Bouchra 32661.1.1 ity of 3.104.2.7 [place] .3.888366 [facility] [place] 2021-08-26 2021-08-26 Travel 1.2.840.1 1.2.449.020 7124 73 Univers 00:00:00 00:00:00 91859.1.1 350.1.13.10 ity of 3.104.2.7 [place].3.698 [place]3.2986[place] 084.8 [facility] .[facility] [place] 2021-08-26 2021-08-26 Travel 1.2.840.1 1.2.071.761 4068 7347 Univers 00:00:00 00:00:00 87393.1.1 350.1.13.10 ity of 3.104.2.7 [place].3.698 [place] .3.914[place] 084.8 [facility] [facility] [place] 2021-08-26 2021-08-26 Travel 1.2.840.1 1.2.451.693 6604 73 Univers 00:00:00 00:00:00 31235.1.1 350.1.13.10 ity of 3.104.2.7 [place].3.698 [place] .[place].535[place] 084.8 [facility] [facility] [place] 2021-08-03 2021-08-03 Funeral Greeter Sharita, [facility] 1.2.8 40.114 [id number] Univers 17:15:00 17:30:00 Visit Shivani Vaughn [place] 350.1.13.10 ity of [place] [phone] [place]ical NAL 353 [facility] 2021-08-03 2021-08-03 Funeral Greeter Shivani Vaughn 1.2.840.2 [id number] Univers 17:15:00 17:30:00 Visit Sharita, [facility] 72818.1.1 ity of 3.104.2.7 [place] .3.243872 [facility] .[facility] [place] 2021-08-03 2021-08-03 Funeral Greeter Shivani Vaughn 1.2.840.8 [id number] Univers 17:15:00 17:30:00 Visit Moshe, [facility] 52653.1.1 ity of 3.104.2.7 [place] .3.875461 [facility] [place] 2021-08-03 2021-08-03 Outpatient R SHIVANI VAUGHN [facility] [id number] Univers 17:15:00 17:15:00 SHIVANI VAUGHN ity of [facility] 2021-08-02 2021-08-02 Outpatient R SELF, [facility] [id number] Univers 10:15:00 11:07:50 JAMES ity o f [facility] 2021-08-02 2021-08-02 Travel 1.2.840.1 1.2.546.913 3341 6890 Univers 00:00:00 00:00:00 98342.1.1 350.1.13.10 ity of 3.104.2.7 4.[place].3.698 [place] .3.286464 084.8 [facility] .[facility] [place] 2021-08-02 2021-08-02 Travel 1.2.840.1 1.2.201.049 7098 6890 Univers 00:00:00 00:00:00 18667.1.1 350.1.13.10 ity of 3.104.2.7 4.[place]7.3.698 [place] .3.507546 084.8 [facility] .[facility] [place] 2021-08-02 2021-08-02 Travel 1.2.840.1 1.2.527.112 0581 6890 Univers 00:00:00 00:00:00 50105.1.1 350.1.13.10 ity of 3.104.2.7 4.[place]7.3.698 [place] .3.789883 084.8 [facility] [facility] [place] 2021-07-29 2021-07-29 [facility] [id number] Univers 13:26:56 23:59:00 BOUCHRA ity of [facility] 2021-07-29 2021-07-29 [facility], 1.2.840.8 [id number] Univers 13:26:56 23:59:00 Encounter Bouchra 97965.1.1 it y of 3.104.2.7 [place] .3.598157 [facility] .[facility] [place] 2021-07-29 2021-07-29 [facility], 1.2.840.4 [id number] 90 [id number] Univers 13:26:56 23:59:00 Encounter Bouchra 84089.1.1 it y of 3.104.2.7 [place] .3.818807 [facility] .[facility] [place] 2021-07-29 2021-07-29 [facility], 1.2.840.8 [id number] 90 [id number] Univers 13:26:56 23:59:00 Encounter Bouchra 85247.1.1 it y of 3.104.2.7 [place] .3.966770 [facility] .[facility] [place] 2021-07-29 2021-07-29 [facility] 1.2.173.623 4248 4919 Univers 13:20:00 15:16:49 Visit Bouchra ARELLANO 350.1.13.10 it y of C[place] 4.2.7.2.686 Michelle VALDES [id number] [place] 198 [place] 2021-07-29 2021-07-29 Outpatient R ARNALDO, [facility] [id number] Univers 13:20:00 15:16:49 BOUCHRA ity of [facility] 2021-07-29 2021-07-29 Office Arnaldo, 1.2.840.9 [id number] [id number] Univers 13:20:00 15:16:49 Visit Bouchra 74849.1.1 ity of 3.104.2.7 [place] .3.522886 [facility] [place] 2021-07-29 2021-07-29 Office Arnaldo, 1.2.840.0 [id number] [id number] Univers 13:20:00 15:16:49 Visit Bouchra Pizano50.1.1 ity of 3.104.2.7 [place] .3.783228 [facility] .[facility] [place] 2021-07-29 2021-07-29 Letter Arnaldo, 1.2.840.8 [id number] 908 [id number] Univers 00:00:00 00:00:00 (Out) Bouchra 97615.1.1 ity of 3.104.2.7 [place] .3.182441 [facility] .[facility] [place] 2021-07-29 2021-07-29 Travel 1.2.840.1 1.2.843.198 3326 9351 Univers 00:00:00 00:00:00 89977.1.1 350.1.13.10 ity of 3.104.2.7 4.[place]7.3.698 [place] .3.958608 084.8 [facility] [facility] [place] 2021-07-29 2021-07-29 Letter Arnaldo, 1.2.840.1 [id number] 908 [id number] Univers 00:00:00 00:00:00 (Out) Bouchra 11325.1.1 ity of 3.104.2.7 [place] .3.511591 [facility] [place] 2021-07-29 2021-07-29 Travel 1.2.840.1 1.2.001.355 8804 9351 Univers 00:00:00 00:00:00 37001.1.1 350.1.13.10 ity of 3.104.2.7 4.2.7.3.698 [place] .3.464158 084.8 [facility] [place] 2021-07-29 2021-07-29 Dustin Mcintosh, 1.2.840.6 [id number] 908 [id number] Univers 00:00:00 00:00:00 (Out) Bouchra 72583.1.1 ity of 3.104.2.7 [place] .3.818438 [facility] [place] 2021-07-29 2021-07-29 Travel 1.2.840.1 1.2.977.904 8245 9351 Univers 00:00:00 00:00:00 44424.1.1 350.1.13.10 ity of 3.104.2.7 4.[place].7.3.698 [place] .3.074[place] 084.8 [facility] .[facility] [place] 2021-07-22 2021-07-22 [facility] 1.2.840.114 9 [id number] Univers 14:00:00 23:59:00 Encounter , Ryan COLMENARES 350.1.13.10 ity of [place] 4.2.7.2.686 [facility] [id number] [facility] torito 801 [place] 2021-07-22 2021-07-22 [facility] 1.2.840.3 [id number] Univers 14:00:00 23:59:00 Encounter , Ryan 35403.1.1 it y of 3.104.2.7 [place] .3.077539 [facility] .[facility] [place] 2021-07-22 2021-07-22 [facility] 1.2.840.9 [id number] Univers 14:00:00 23:59:00 Encounter , Ryan 78525.1.1 it y of 3.104.2.7 [place] .3.242476 [facility] [place] 2021-07-22 2021-07-22 [facility] 1.2.840.2 [id number] Univers 14:00:00 23:59:00 Encounter , Ryan 43131.1.1 it y of 3.104.2.7 [place] .3.695284 [facility] [place] 2021-07-22 2021-07-22 [facility] 1.2.840.114 9 [id number] Univers 10:46:11 13:59:00 Encounter , Ryan SPECIALTY 350.1.13.10 ity of CARE 4.2.7.2.686 [facility] [phone] [place] janesbill CAL[place]N 809 [facility] 2021-07-22 2021-07-22 [facility] 1.2.840.0 [id number] Univers 10:46:11 13:59:00 Encounter , Ryan 04710.1.1 it y of 3.104.2.7 [place] .3.023748 Medica l [address] [place] [address] 2021-07-22 2021-07-22 [facility] 1.2.840.4 [id number] Univers 10:46:11 13:59:00 Encounter , Ryan 24349.1.1 it y of 3.104.2.7 [place] .3.024079 [facility] [place] 2021-07-22 2021-07-22 [facility] 1.2.840.2 [id number] Univers 10:46:11 13:59:00 Encounter , Ryan 41385.1.1 it y of 3.104.2.7 [place] .3.618893 [facility] [place] 2021-07-22 2021-07-22 Outpatient R GEOVANNI [facility] [id number] Univers 13:00:00 13:45:02 HONORIO erickson [facility] 2021-07-22 2021-07-22 Outpatient R GEOVANNI [facility] [id number] Univers 13:00:00 13:45:02 HONORIO erickson [facility] 2021-07-22 2021-07-22 Outpatient R GEOVANNI, [facility] [id number] Univers 13:00:00 13:00:00 HONORIO ity [facility] 2021-07-22 2021-07-22 Office Alijanipour 1.2.840.3 [id number] Univers 10:15:00 11:55:28 Visit , Ryan 76924.1.1 ity of 3.104.2.7 [place] .3.862413 [facility] .[facility] [place] 2021-07-22 2021-07-22 Outpatient R ALIBRANDI [facility] [id number] Univers 10:15:00 11:55:28 , RYAN ity [facility] 2021-07-22 2021-07-22 Office Alijanipour 1.2.840.5 [id number] Univers 10:15:00 11:55:28 Visit , Ryan 14320.1.1 ity of 3.104.2.7 [place] .3.066475 Medica l [address] [place] [address] 2021-07-22 2021-07-22 Office Alijanipour 1.2.840.3 [id number] Univers 10:15:00 11:55:28 Visit , Ryan 22805.1.1 ity of 3.104.2.7 [place] .3.062686 Medica l [address] [place] [address] 2021-07-22 2021-07-22 Outpatient R ALIBRANDI [facility] [id number] Univers 10:46:11 10:46:11 , RYAN ity [facility] 2021-07-22 2021-07-22 Outpatient R ALIBRANDI [facility] [id number] Univers 10:15:00 10:15:00 , RYAN ity [facility] 2021-07-22 2021-07-22 Outpatient R ALIALEXISIPDENA [facility] [id number] Univers 10:15:00 10:15:00 , RYAN ity [facility] 2021-07-22 2021-07-22 Abstract Alijanipour 1.2.840.6 [id number] Univers 00:00:00 00:00:00 , Ryan 49282.1.1 ity of 3.104.2.7 [place] .3.350958 [facility] [place] 2021-07-22 2021-07-22 Travel 1.2.840.1 1.2.843.548 3705 8425 Univers 00:00:00 00:00:00 52001.1.1 350.1.13.10 ity of 3.104.2.7 4.[place].7.3.698 [place] .3.330929 084.8 [facility] .[facility] [place] 2021-07-22 2021-07-22 Letter Alijanipour 1.2.840.1 [id number] Univers 00:00:00 00:00:00 (Out) , Ryan 07084.1.1 ity of 3.104.2.7 [place] .3.882079 [facility] [place] 2021-07-22 2021-07-22 Letter Alijanipour 1.2.840.8 [id number] Univers 00:00:00 00:00:00 (Out) , Ryan 06380.1.1 ity of 3.104.2.7 [place] .3.622614 [facility] .[facility] [place] 2021-07-22 2021-07-22 Travel 1.2.840.1 1.2.201.036 7677 8425 Univers 00:00:00 00:00:00 44763.1.1 350.1.13.10 ity of 3.104.2.7 4.2.7.3.698 [place] .3.371819 084.8 [facility] .[facility] [place] 2021-07-22 2021-07-22 Abstract Alijanipour 1.2.840.8 [id number] Univers 00:00:00 00:00:00 , Ryan 46168.1.1 ity of 3.104.2.7 [place] .3.029650 [facility] [place] 2021-07-22 2021-07-22 Letter Alijanipour 1.2.840.1 [id number] Univers 00:00:00 00:00:00 (Out) , Ryan 78656.1.1 ity of 3.104.2.7 [place] .3.268547 [facility] .[facility] [place] 2021-07-22 2021-07-22 Travel 1.2.840.1 1.2.075.002 8255 8425 Univers 00:00:00 00:00:00 59315.1.1 350.1.13.10 ity of 3.104.2.7 4.2.7.3.698 [place] .3.148714 084.8 [facility] l .[facility] [place] 2021-07-22 2021-07-22 Abstract Alijanipour 1.2.840.9 [id number] Univers 00:00:00 00:00:00 , Ryan 03452.1.1 ity of 3.104.2.7 [place] .3.995475 [facility] .[facility] [place] 2021-07-22 2021-07-22 Letter Alijanipour 1.2.840.9 [id number] Univers 00:00:00 00:00:00 (Out) , Ryan 89640.1.1 ity of 3.104.2.7 [place] .3.319454 [facility] .[facility] [place] 2021-07-22 2021-07-22 Travel 1.2.840.1 1.2.616.773 6022 8425 Univers 00:00:00 00:00:00 45452.1.1 350.1.13.10 ity of 3.104.2.7 4.2.7.3.698 [place] .3.597523 084.8 [facility] l .8 [place] 2021-07-22 2021-07-22 Abstract Alijanipour 1.2.840.5 [id number] Univers 00:00:00 00:00:00 , Ryan 10968.1.1 ity of 3.104.2.7 [place] .3.465425 [facility] .[facility] [place] 2021-07-21 2021-07-21 Outpatient R SHIVANI VAUGHN [facility] [id number] Univers 14:30:00 15:30:35 SHIVANI VAUGHN ity [facility] 2021-07-21 2021-07-21 Outpatient R SHIVANI VAUGHN [facility] [id number] Univers 14:30:00 15:30:35 SHIVANI VAUGHN ity [facility] 2021-07-21 2021-07-21 Outpatient R SHIVANI VAUGHN [facility] [id number] Univers 14:30:00 14:30:00 SHIVANI VAUGHN itadrian [facility] 2021-07-15 2021-07-15 Orders Doctor 1.2.840.1 [id number] Univers 00:00:00 00:00:00 Only Unassigned, 80336.1.1 ity of [place] 3.104.2.7 [place] .3.675934 [facility] .[facility] [place] 2021-07-15 2021-07-15 Orders Doctor 1.2.840.6 [id number] Univers 00:00:00 00:00:00 Only Unassigned, 04559.1.1 ity of [place] 3.104.2.7 [place] .3.283534 [facility] .[facility] [place] 2021-07-15 2021-07-15 Orders Doctor 1.2.840.6 [id number] Univers 00:00:00 00:00:00 Only Unassigned, 38524.1.1 ity of [place] 3.104.2.7 [place] .3.432241 [facility] .[facility] [place] 2021-07-15 2021-07-15 Orders Doctor 1.2.840.0 [id number] Univers 00:00:00 00:00:00 Only Unassigned, 36950.1.1 ity of [place] 3.104.2.7 [place] .3.633250 [facility] .[facility] [place] 2021-07-09 2021-07-09 Emergency [facility] [id number] [facility] 12:46:00 12:46:00 14 2021-07-08 2021-07-08 Outpatient Escobar GALARZA [facility] [id number] Univers 13:00:00 13:00:00 HONORIO ity [facility] 2021-07-08 2021-07-08 Outpatient R GALARZA, [facility] [id number] Univers 13:00:00 13:00:00 HONORIO ity of [facility] 2021-06-30 2021-06-30 Telephone Nazeer, 1.2.840.9 [id number] Univers 00:00:00 00:00:00 Jerry 13357.1.1 ity of 3.104.2.7 [place] .3.959432 [facility] .[facility] [place] 2021-06-30 2021-06-30 Telephone Nazeer, 1.2.840.9 [id number] 900 [id number] Univers 00:00:00 00:00:00 Jerry 78818.1.1 ity of 3.104.2.7 [place] .3.903193 [facility] .[facility] [place] 2021-06-30 2021-06-30 Telephone Nazeer, 1.2.840.3 [id number] 900 [id number] Univers 00:00:00 00:00:00 Jerry 66957.1.1 ity of 3.104.2.7 [place] .3.208580 [facility] [place] 2021-06-30 2021-06-30 Telephone Nazeer, 1.2.840.4 [id number] 900 [id number] Univers 00:00:00 00:00:00 Jerry 18848.1.1 ity of 3.104.2.7 [place] .3.088353 [facility] [place] 2021-06-24 2021-06-24 Imm/Inj Nurse, Pcp Immunization [facility] 1. 2.840.114 [id number] Univers 16:30:00 16:40:00 Visit Gideon Montez PRIMARY 350.1.13. 10 ity of CARE 4.2.7.2.686 Michelle VALDES [id number] Va dical [address] [place] 2021-06-24 2021-06-24 Imm/Inj Gideon Montez 1.2.840.3 [id number] Univers 16:30:00 16:40:00 Visit Nurse, Pcp Immunization 20571.1.1 ity of 3.104.2.7 [place] .3.990026 [facility] [place] 2021-06-24 2021-06-24 Imm/Inj Gideon Montez 1.2.840.1 [id number] Univers 16:30:00 16:40:00 Visit Nurse, Pcp Immunization 10463.1.1 ity of 3.104.2.7 [place] .3.026652 [facility] [place] 2021-06-24 2021-06-24 Imm/Inj Gideon Montez 1.2.840.0 087 [id number] Univers 16:30:00 16:40:00 Visit Nurse, Pcp Immunization 31371.1.1 ity of 3.104.2.7 [place] .3.645925 [facility] .[facility] [place] 2021-06-24 2021-06-24 Imm/Inj Gideon Montez 1.2.840.6 754 [id number] Univers 16:30:00 16:40:00 Visit Nurse, Pcp Immunization 10658.1.1 ity of 3.104.2.7 [place] .3.421249 [facility] .[facility] [place] 2021-06-24 2021-06-24 Outpatient R TC [facility] [id number] Univers 16:30:00 16:30:00 GIDEON erickson [facility] 2021-06-24 2021-06-24 Funeral Greeter Pcp-Lab [facility] 1.2.840.114 [id number] [id number] Univers 16:15:00 16:30:00 Visit Bethel Isaacs PRIMARY 350.1.13.10 ity of CARE 4.2.7.2.686 Michelle VALDES [id number] Va dical 366 [place] 2021-06-24 2021-06-24 Funeral Greeter Bethel Isaacs 1.2.840.4 [id number] Univers 16:15:00 16:30:00 Visit Pcp-Lab 11366.1.1 ity of 3.104.2.7 [place] .3.331187 [facility] .[facility] [place] 2021-06-24 2021-06-24 Funeral Greeter Bethel Isaacs 1.2.840.6 [id number] Univers 16:15:00 16:30:00 Visit Pcp-Lab 24684.1.1 ity of 3.104.2.7 [place] .3.484665 [facility] .[facility] [place] 2021-06-24 2021-06-24 Funeral Greeter Bethel Isaacs 1.2.840.4 [id number] Univers 16:15:00 16:30:00 Visit Pcp-Lab 32968.1.1 ity of 3.104.2.7 [place] .3.748909 [facility] .[facility] [place] 2021-06-24 2021-06-24 Funeral Greeter Bethel Isaacs 1.2.840.6 [id number] Univers 16:15:00 16:30:00 Visit Pcp-Lab 47439.1.1 ity of 3.104.2.7 [place] .3.941584 [facility] [place] 2021-06-24 2021-06-24 [facility] [id number] Univers 16:15:00 16:15:00 BETHEL erickson [facility] 2021-06-24 2021-06-24 [facility] [id number] Univers 14:40:00 16:08:00 BETHEL dre [facility] 2021-06-24 2021-06-24 Office Bethel Isaacs 1.2.840.1 [id number] Univers 14:40:00 16:08:00 Visit Health, Tg Hormone 47514.1.1 ity of 3.104.2.7 [place] .3.984663 Medica l [address] [place] [address] 2021-06-24 2021-06-24 [facility] [id number] Univers 14:40:00 16:08:00 BETHEL dre [facility] 2021-06-24 2021-06-24 Office Bethel Isaacs 1.2.840.8 [id number] Univers 14:40:00 16:08:00 Visit Health, Tg Hormone 49710.1.1 ity of 3.104.2.7 [place] .3.455621 [facility] .[facility] [place] 2021-06-24 2021-06-24 Office Bethel Isaacs 1.2.840.2 [id number] [facility] 14:40:00 16:08:00 Visit Health, Tg Hormone 36207.1.1 ity of 3.104.2.7 [place] .3.147828 Med[facility] l .8 [place] 2021-06-24 2021-06-24 Office Bethel Isaacs 1.2.840.4 [id number] [id number] [facility] 14:40:00 16:08:00 Visit Health, Tg Hormone 67094.1.1 ity of 3.104.2.7 [place] .3.215422 [facility] .[facility] [place] 2021-06-24 2021-06-24 Outpatient R KOURTNEY, [facility] [id number] [facility] 14:40:00 14:40:00 BETHEL reickson of [facility] 2021-06-24 2021-06-24 Travel 1.2.840.1 1.2.862.915 6703 0448 Univers 00:00:00 00:00:00 39021.1.1 350.1.13.10 ity of 3.104.2.7 4.2.7.3.698 [place] .3.278965 084.8 [facility] l .8 [place] 2021-06-24 2021-06-24 Travel 1.2.840.1 1.2.404.598 4570 0448 Univers 00:00:00 00:00:00 09518.1.1 350.1.13.10 ity of 3.104.2.7 4.2.7.3.698 [place] .3.665357 084.8 [facility] [place] .[place] 2021-06-24 2021-06-24 Travel 1.2.840.1 1.2.380.774 5284 0448 Univers 00:00:00 00:00:00 93751.1.1 350.1.13.10 ity of 3.104.2.7 4.2.7.3.698 [place] .3.388749 084.8 [facility] l .[place] 2021-06-24 2021-06-24 Travel 1.2.840.1 1.2.055.305 5648 0448 Univers 00:00:00 00:00:00 23026.1.1 350.1.13.10 ity of 3.104.2.7 4.2.7.3.698 [place] .3.027257 084.8 [facility] .[place] 2021-06-17 2021-06-17 Funeral Greeter Self, James 1.2.840.5 747884 [id number] Univers 16:00:00 16:15:00 Visit Pcp-Lab 16600.1.1 ity of 3.104.2.7 [place] .3.572526 [facility] .[facility] [place] 2021-06-17 2021-06-17 Funeral Greeter Self, James 1.2.840.0 [id number] [id number] Univers 16:00:00 16:15:00 Visit Pcp-Lab 63945.1.1 ity of 3.104.2.7 [place] .3.093834 [facility] .[facility] [place] 2021-06-17 2021-06-17 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 Self, James 1.2.840.6 [id number] Univers 16:00:00 16:15:00 Visit Pcp-Lab 49407.1.1 ity of 3.104.2.7 [place] .3.932131 [facility] [place] 2021-06-17 2021-06-17 Funeral Greeter Self, James 1.2.840.1 [id number] Univers 16:00:00 16:15:00 Visit Pcp-Lab 45638.1.1 ity of 3.104.2.7 [place] .3.622612 [facility] [place] 2021-06-17 2021-06-17 Funeral Greeter Self, James 1.2.840.4 [id number] [id number] Univers 16:00:00 16:15:00 Visit Pcp-Lab 78384.1.1 ity of 3.104.2.7 [place] .3.944895 [facility] [place] 2021-06-17 2021-06-17 Outpatient Escobar GALARZA, [facility] [id number] Univers 14:00:00 14:00:00 HONORIO ity of [facility] 2021-06-17 2021-06-17 Outpatient R GEOVANNI, [facility] [id number] Univers 14:00:00 14:00:00 HONORIO ity [facility] 2021-06-17 2021-06-17 Travel 1.2.840.1 1.2.459.143 1142 3149 Univers 00:00:00 00:00:00 16440.1.1 350.1.13.10 ity of 3.104.2.7 4.2.7.3.698 [place] .3.232429 084.8 [facility] l .[place] 2021-06-17 2021-06-17 Travel 1.2.840.1 1.2.107.341 2806 3149 Univers 00:00:00 00:00:00 75843.1.1 350.1.13.10 ity of 3.104.2.7 4.2.7.3.698 [place] .3.145476 084.8 [facility] l .[place] 2021-06-17 2021-06-17 Travel 1.2.840.1 1.2.707.330 6978 3149 [facility] 00:00:00 00:00:00 15051.1.1 350.1.13.10 ity of 3.104.2.7 4.2.7.3.698 [place] .3.188633 084.8 [facility] .8 [place] 2021-06-17 2021-06-17 Travel 1.2.840.1 1.2.500.912 8897 3149 [facility] 00:00:00 00:00:00 44263.1.1 350.1.13.10 ity of 3.104.2.7 4.2.7.3.698 [place] .3.807860 084.8 [facility] .8 [place] 2021-06-17 2021-06-17 Travel 1.2.840.1 1.2.479.463 9834 3149 [facility] 00:00:00 00:00:00 43185.1.1 350.1.13.10 ity of 3.104.2.7 4.2.7.3.698 [place] .3.479513 084.8 [facility] .8 [place] 2021-06-14 2021-06-14 Outpatient R REYNALDO, [facility] [id number] [facility] 11:00:00 12:13:42 JAMES ity o f [facility] 2021-06-14 2021-06-14 Travel 1.2.840.1 1.2.664.245 4544 7514 [facility] 00:00:00 00:00:00 17272.1.1 350.1.13.10 ity of 3.104.2.7 4.2.7.3.698 [place] .3.367222 084.8 Med[facility] .8 [place] 2021-06-14 2021-06-14 Travel 1.2.840.1 1.2.021.847 4679 7514 [facility] 00:00:00 00:00:00 63570.1.1 350.1.13.10 ity of 3.104.2.7 4.2.7.3.698 [place] .3.805122 084.8 [facility]ica l .8 [facility] 2021-06-14 2021-06-14 Travel 1.2.840.1 1.2.156.730 0664 7514 [facility] 00:00:00 00:00:00 66944.1.1 350.1.13.10 ity of 3.104.2.7 4.2.7.3.698 [place] .3.512334 084.8 Med[facility] .8 [facility] 2021-06-14 2021-06-14 Travel 1.2.840.1 1.2.113.401 5993 7514 [facility] 00:00:00 00:00:00 13613.1.1 350.1.13.10 ity of 3.104.2.7 4.2.7.3.698 [place] .3.392598 084.8 Medica l .8 [facility] 2021-06-102021-06-10 Patient Burton, 1.2.840.4 [id number] 075 [facility] 00:00:00 00:00:00 Outreach Britt Rm 12455.1.1 ity of 3.104.2.7 [place] .3.678863 [facility]ica [facility] .8 [place] 2021-06-10 2021-06-10 Patient Burton, 1.2.840.6 [id number] 075 [facility] 00:00:00 00:00:00 Outreach Britt J 06138.1.1 ity of 3.104.2.7 [place] .3.132716 Medica l .8 [place] 2021-06-10 2021-06-10 Patient Burton, 1.2.840.3 [id number] 075 [facility] 00:00:00 00:00:00 Outreach Britt Rm 02060.1.1 ity of 3.104.2.7 [place] .3.586873 Medica l .8 [place] 2021-06-10 2021-06-10 Patient Burton, 1.2.840.2 [id number] 075 [facility] 00:00:00 00:00:00 Outreach Britt Rm 11110.1.1 ity of 3.104.2.7 [place] .3.286093 [facility] .[facility] [place] 2021-06-03 2021-06-03 Outpatient Escobar GALARZA [facility] [id number] [facility] 14:00:00 14:22:42 HONORIO ity of [facility] 2021-06-03 2021-06-03 Travel 1.2.840.1 1.2.966.240 7601 4897 [facility] 00:00:00 00:00:00 05875.1.1 350.1.13.10 ity of 3.104.2.7 4.2.7.3.698 [place] .3.281549 084.8 Med[facility] l .8 [place] 2021-06-03 2021-06-03 Travel 1.2.840.1 1.2.327.068 3649 4897 [facility] 00:00:00 00:00:00 34763.1.1 350.1.13.10 ity of 3.104.2.7 4.2.7.3.698 [place] .3.410535 084.8 Medica l .8 [facility] 2021-06-03 2021-06-03 Travel 1.2.840.1 1.2.945.422 5948 4897 [facility] 00:00:00 00:00:00 81871.1.1 350.1.13.10 ity of 3.104.2.7 4.2.7.3.698 [place] .3.053703 084.8 Medica l .8 [place] 2021-06-03 2021-06-03 Travel 1.2.840.1 1.2.187.770 8283 4897 [facility] 00:00:00 00:00:00 47921.1.1 350.1.13.10 ity of 3.104.2.7 4.2.7.3.698 [place] .3.821232 084.8 Med[facility] l .8 [place] 2021-05-26 2021-05-26 [facility], 1.2.840.7 [id number] 9138 [facility] 09:40:00 23:59:00 Encounter Burke De La Cruz 23447.1.1 ity of 3.104.2.7 [place] .3.130888 Medica [facility] .8 [place] 2021-05-26 2021-05-26 [facility], 1.2.840.0 [id number] 9138 [facility] 09:40:00 23:59:00 Encounter Burke De La Cruz 69017.1.1 ity of 3.104.2.7 [place] .3.160997 Medica l .8 [place] 2021-05-26 2021-05-26 [facility], 1.2.840.1 [id number] 9138 [facility] 09:40:00 23:59:00 Encounter Burke De La Cruz 47944.1.1 ity of 3.104.2.7 [place] .3.892980 Medica l .8 [place] 2021-05-26 2021-05-26 Outpatient R ASHLEE, [facility] [id number] [facility] 00:00:00 00:00:00 BURKE ericksno of [facility] 2021-05-25 2021-05-25 Emergency [facility] [id number] [facility] 23:19:00 23:19:00 94 2021-05-24 2021-05-24 Outpatient R SELF, [facility] [id number] [facility] 11:00:00 11:31:18 JAMES anderson [facility] 2021-05-24 2021-05-24 Travel 1.2.840.1 1.2.366.241 5157 1167 [facility] 00:00:00 00:00:00 23059.1.1 350.1.13.10 ity of 3.104.2.7 4.2.7.3.698 [place] .3.823678 084.8 Med[facility] l .8 [place] 2021-05-24 2021-05-24 Travel 1.2.840.1 1.2.829.444 5730 1167 [facility] 00:00:00 00:00:00 14899.1.1 350.1.13.10 ity of 3.104.2.7 4.2.7.3.698 [place] .3.263889 084.8 Med[facility] l .8 [place] 2021-05-24 2021-05-24 Travel 1.2.840.1 1.2.339.848 6994 1167 [facility] 00:00:00 00:00:00 94480.1.1 350.1.13.10 ity of 3.104.2.7 4.2.7.3.698 [place] .3.882424 084.8 Med[facility] l .8 [place] 2021-05-10 2021-05-10 Outpatient R SELF, [facility] [id number] Univers 08:45:00 08:45:00 JAMES gabeadrian anderson [facility] 2021-04-29 2021-04-29 Outpatient R GALARZA, [facility] [id number] Univers 13:00:00 13:33:16 HONORIO erickson [facility] 2021-04-29 2021-04-29 Outpatient R GALARZA, [facility] [id number] Univers 13:00:00 13:00:00 HONORIO erickson [facility] 2021-04-29 2021-04-29 Travel 1.2.840.1 1.2.393.861 [id number] Univers 00:00:00 00:00:00 81949.1.1 350.1.13.10 ity of 3[place]104.2.[place] 084.8 [facility] [facility] [place] 2021-04-29 2021-04-29 Travel 1.2.840.1 1.2.461.317 [id number] [id number] Univers 00:00:00 00:00:00 43121.1.1 350.1.13.10 it[place] of [place]104.2.[place].275[place] 084.8 [facility] [facility] [place] 2021-03-18 2021-03-18 Outpatient R GEOVANNI [facility] [id number] Univers 15:00:00 15:00:00 HONORIO ity [facility] 2021-03-18 2021-03-18 Travel 1.2.840.1 1.2.149.478 [id number] [id number] Univers 00:00:00 00:00:00 43441.1.1 350.1.13.10 it[place] of [place]104.2.[place]3.832824 084.8 [facility] [place] [facility] [place] 2021-03-15 2021-03-15 Outpatient R REYNALDO [facility] [id number] Univers 10:15:00 10:15:00 JAMES ity o f [facility] 2021-02-25 2021-02-25 Outpatient R GEOVANNI [facility] [id number] Univers 09:00:00 09:00:00 HONORIO ity [facility] 2021-02-25 2021-02-25 Travel 1.2.840.1 1.2.088.441 [id number] Univers 00:00:00 00:00:00 90530.1.1 350.1.13.10 ity of [place].104.2.[place]3.033[place] 084.8 [facility] [facility] [place] 2021-02-15 2021-02-15 Outpatient R REYNALDO, [facility] [id number] Univers 11:00:00 11:00:00 JAMES erickson o f [facility] 2021-02-15 2021-02-15 Travel 1.2.840.1 1.2.175.448 [id number] [id number] Univers 00:00:00 00:00:00 88181.1.1 350.1.13.10 ity of 3.104.2.[place]3.7515[place] 084.8 [facility] [facility] 2021-02-11 2021-02-11 [facility] [id number] Univers 11:00:00 11:00:00 HONORIO itadrian [facility] 2021-02-11 2021-02-11 Travel 1.2.840.1 1.2.833.870 [id number] [id number] Univers 00:00:00 00:00:00 21350.1.1 350.1.13.10 ity of 3.104.2.[place]3.454807 4.8 [facility] [place] 2021-01-28 2021-01-28 Funeral Greeter Paolo Rivera 1.2.840.2 [id number] Univers 13:53:29 14:08:29 Visit Pcp-Lab 68978.1.1 ity of 3.104.2.7 [place] .3.998457 [facility] [place] 2021-01-28 2021-01-28 Outpatient R GEOVANNI, [facility] [id number] Univers 13:00:00 13:00:00 [facility] 2021-01-28 Travel 1.2.840.1 1.2.304.216 [id number] [id number] Univers 00:00:00 00:00:00 12567.1.1 350.1.13.10 ity of 3.104.2.[place] .3.028653 084.8 [facility] [facility] 2021-01-25 2021-01-25 Outpatient R REYNALDO, [facility] [id number] Univers 09:30:00 09:30:00 JAMES anderson [facility] 2021-01-25 2021-01-25 Travel 1.2.840.1 1.2.996.579 [id number] [id number] Univers 00:00:00 00:00:00 76626.1.1 350.1.13.10 ity of 3.104.2.7 [place].698 [place]3.261453 084.8 [facility] [facility] 2021-01-13 2021-01-13 Outpatient R REYNALDO, [facility] [id number] Univers 16:00:00 16:00:00 JAMES anderson [facility] 2021-01-13 2021-01-13 Travel 1.2.840.1 1.2.890.017 [id number] [id number] Univers 00:00:00 00:00:00 85891.1.1 350.1.13.10 ity of 3.104.2.7 [place].3.698 [place] .3.870597 084.8 [facility] [place] 2020-12-31 2020-12-31 Funeral Greeter Tim Holguin 1.2.840.7 [id number] Univers 16:38:39 16:54:09 Visit Pcp-Lab 24032.1.1 ity of 3.104.2.7 [place] .3.328701 [facility] [place] 2020-12-31 2020-12-31 Outpatient R GEOVANNI, [facility] [id number] Univers 16:00:00 16:00:00 HONORIO erickson [facility] 2020-12-31 2020-12-31 Travel 1.2.840.1 1.2.976.525 [id number] [id number] Univers 00:00:00 00:00:00 48611.1.1 350.1.13.10 ity of 3.104.2.[place] .3.475996 084.8 [facility] [place] 2020-12-28 2020-12-28 Orders Doctor 1.2.840.5 [id number] Univers 00:00:00 00:00:00 Only Unassigned, 34279.1.1 ity of [place] 3.104.2.7 [place] .3.002323 [facility] [place] 2020-12-24 2020-12-24 Outpatient Escobar EZIO [facility] [id number] Univers 11:00:00 11:00:00 YAHIRBABAK campbell [facility] 2020-12-24 2020-12-24 Travel 1.2.840.1 1.2.325.382 [id number] [id number] Univers 00:00:00 00:00:00 00446.1.1 350.1.13.10 ity of 3.104.2.7 [place].698 [place] .3.972665 084.8 [facility] 2020-12-17 2020-12-17 Outpatient Escobar GEOVANNI [facility] [id number] Univers 11:00:00 11:00:00 HONORIO erikcson [facility] 2020-11-26 2020-11-26 [facility] [id number] Univers 16:00:00 16:00:00 HONORIO adrian [facility] 2020-11-26 2020-11-26 Travel 1.2.840.1 1.2.318.568 [id number] [id number] Univers 00:00:00 00:00:00 65055.1.1 350.1.13.10 ity of 3.104.2.7 [place].3.698 [place] .3.941610 084.8 [facility] [place] 2020-11-26 2020-11-26 Travel 1.2.840.1 1.2.809.258 [id number] 0854 Univers 00:00:00 00:00:00 91542.1.1 350.1.13.10 ity of 3.104.2.7 [place]7.3.698 [place] .3.514788 084.8 [facility] [place] 2020-11-21 2020-11-21 Imm/Inj TcGideon 1.2.840.2 [id number] Univers 10:04:35 10:09:35 Visit Immunization, [facility] 20226.1.1 ity of 3.104.2.7 [place] .3.146111 [facility] [place] 2020-11-21 2020-11-21 Outpatient R TC [facility] [id number] Univers 10:05:00 10:05:00 GIDEON itadrian [facility] 2020-11-17 2020-11-17 Outpatient R CHELSY ROMO [facility] [id number] Univers 15:45:00 15:45:00 ity of [facility] 2020-11-17 2020-11-17 Travel 1.2.840.1 1.2.915.745 [id number] [id number] Univers 00:00:00 00:00:00 62169.1.1 350.1.13.10 ity of 3.104.2.7 [place].3.698 [place] .3.631934 084.8 [facility] [place] 2020-11-16 2020-11-16 Orders Doctor 1.2.840.6 [id number] Univers 00:00:00 00:00:00 Only Unassigned, 03226.1.1 ity of [place] 3.104.2.7 [place] .3.525857 [facility] [place] 2020-11-12 2020-11-12 Outpatient R GEOVANNI [facility] [id number] Univers 08:00:00 08:00:00 HONORIO ity [facility] 2020-11-12 2020-11-12 Travel 1.2.840.1 1.2.984.108 [id number] [id number] Univers 00:00:00 00:00:00 82894.1.1 350.1.13.10 ity of 3.104.2.7 [place].3.698 [place] .3.889236 084.8 [facility] [place] 2020-10-29 2020-10-29 Outpatient R EZIO [facility] [id number] Univers 09:30:00 09:30:00 CHRISTOPHER it y of [facility] 2020-10-24 2020-10-24 Imm/Inj Gio Martinez 1.2.840.1 [id number] Univers 09:54:36 10:09:56 [facility] 67814.1.1 ity of 3.104.2.7 [place] .3.291241 [facility] [place] 2020-10-24 2020-10-24 Outpatient R MAHESH [facility] [id number] Univers 10:00:00 10:00:00 GIO ity of [facility] 2020-10-24 2020-10-24 Travel 1.2.840.1 1.2.308.070 [id number] 3748 Univers 00:00:00 00:00:00 07886.1.1 350.1.13.10 ity of 3.104.2.7 [place].3.698 [place] .3.790187 084.8 Medica l [address] [place] [address] 2020-09-25 2020-09-26 Emergency E BRINDA, [facility] [id number] [facility] 23:49:00 10:04:00 ALAINA [facility]ica [facility] [place] 2020-09-17 2020-09-17 Telephone Simon, 1.2.840.5 [id number] Univers 00:00:00 00:00:00 Nilton A 86479.1.1 i ty of 3.104.2.7 [place] .3.461892 [facility] [place] 2020-08-18 2020-08-18 Outpatient R CHELSY ROMO [facility] [id number] Univers 15:00:00 15:00:00 ity of [facility] 2020-07-08 2020-07-08 Office Montes, 1.2.840.0 [id number] Univers 12:55:33 15:36:41 Visit Nilton Mustapha 31462.1.1 i ty of 3.104.2.7 [place] .3.178548 [facility] [place] 2020-07-08 2020-07-08 Outpatient R NILTON MNOTES [facility] [id number] Univers 13:30:00 13:30:00 NILTON MONTES ity of [facility] 2020-07-08 2020-07-08 Orders Doctor 1.2.840.6 [id number] Univers 00:00:00 00:00:00 Only Unassigned, 53698.1.1 ity of [place] 3.104.2.7 [place] .3.172411 [facility] [place] 2020-07-08 2020-07-08 Letter Montes 1.2.840.1 [id number] Univers 00:00:00 00:00:00 (Out) Nilton Mustapha 26803.1.1 i ty of 3.104.2.7 [place] .3.443838 [facility] [place] 2020-05-21 2020-05-21 Outpatient R NICOLE [facility] [id number] Univers 10:15:00 10:15:00 DENA ity of [facility] 2020-05-21 2020-05-21 Orders Doctor 1.2.840.0 [id number] Univers 00:00:00 00:00:00 Only Unassigned, 38434.1.1 ity of [place] 3.104.2.7 [place] .3.588866 [facility] [place] 2020-04-24 2020-04-24 Outpatient R ASH RAMIREZ [facility] [id number] Univers 16:00:00 16:00:00 ity of [facility] 2020-04-22 2020-04-22 Telephone Fish, Ash 1.2.840.5 [id number] Univers 00:00:00 00:00:00 35627.1.1 ity of 3.104.2.7 [place] .3.312771 [facility] [place] 2020-04-21 2020-04-21 Case Fish, Ash 1.2.840.3 [id number] Univers 00:00:00 00:00:00 Management 75372.1.1 i ty of 3.104.2.7 [place] .3.737666 [facility] [place] 2020-04-20 2020-04-20 Office Ash Ramirez 1.2.840.2 [id number] Univers 15:09:50 16:30:58 Visit 69276.1.1 ity of 3.104.2.7 [place] .3.955183 [facility] [place] 2020-04-20 2020-04-20 Outpatient R ASH RAMIREZ [facility] [id number] Univers 15:30:00 15:30:00 ity of [facility] 2020-04-20 2020-04-20 Travel 1.2.840.1 1.2.123.060 [id number] [id number] Univers 00:00:00 00:00:00 24104.1.1 350.1.13.10 ity of 3.104.2.7 [place]7.3.698 [place] .3.070590 084.8 [facility] .[facility] [place] 2020-04-16 2020-04-16 Emergency Checo, Kitty 1.2.840.8 [id number] Univers 11:02:00 13:56:00 Bree 85088.1.1 ity of 3.104.2.7 [place] .3.840135 [facility] [place] 2020-04-16 2020-04-16 Travel 1.2.840.1 1.2.814.227 5780 3692 Univers 00:00:00 00:00:00 63367.1.1 350.1.13.10 ity of 3.104.2.7 4.[place]7.3.698 [place] .3.222407 084.8 [facility] .[facility] [place] 2020-04-07 2020-04-07 Outpatient R CHELSY ROMO [facility] [id number] Univers 13:30:00 13:30:00 ity of [facility] 2020-04-07 2020-04-07 Travel 1.2.840.1 1.2.570.374 9725 [id number] Univers 00:00:00 00:00:00 45352.1.1 350.1.13.10 ity of 3.104.2.7 [place].3.698 [place] .3.144398 084.8 [facility] .[place] 2020-01-30 2020-01-30 Outpatient R DEFVARINDER, [facility] [id number] Univers 15:45:00 15:45:00 TRUNG ity of [facility] 2020-01-30 2020-01-30 Travel 1.2.840.1 1.2.030.640 5425 [id number] Univers 00:00:00 00:00:00 00188.1.1 350.1.13.10 ity of 3.104.2.7 [place]7.3.698 [place] .3.595002 084.8 [facility] .[facility] [place] 2020-01-01 2020-01-01 Orders Doctor 1.2.840.0 [id number] Univers 00:00:00 00:00:00 Only Unassigned, 26807.1.1 ity of [place] 3.104.2.7 [place] .3.885487 [facility] [place] 2019-10-22 2019-10-22 Outpatient R FALLS, CHELSY [facility] [id number] Univers 15:45:00 15:45:00 ity of [facility] 2019-09-12 2019-09-12 Urgent Unknown, Attending 1.2.840.1 [id number] Univers 17:51:35 19:25:20 Ruchi Camargo 56759.1.1 ity of 3.104.2.7 [place] .3.242743 [facility] [place] 2019-09-12 2019-09-12 Outpatient R UNKNOWN, [facility] [id number] Univers 18:00:00 18:00:00 ATTENDING ity of [facility] 2019-07-04 2019-07-04 Orders Doctor 1.2.840.2 [id number] Univers 00:00:00 00:00:00 Only Unassigned, 82828.1.1 ity of [place] 3.104.2.7 [place] .3.091837 [facility] [place] 2019-04-02 2019-04-02 Orders Doctor 1.2.840.6 [id number] Univers 00:00:00 00:00:00 Only Unassigned, 95304.1.1 ity of [place] 3.104.2.7 [place] .3.532279 [facility] [place] 2018-10-31 2018-10-31 Nurse Simon [place] Mustapha 1.2.840.1 [id number] [facility] 14:59:26 16:42:50 Visit Nurse, Han Rai 47233.1.1 ity [facility]104.2.7 [facility]20[facility] [place] Results Test Description Test Time Test Comments Results Result Comments Source AG STREP GROUP A (THROAT) POC 2022-07-15 20:12:00 Test Item Value Reference Range Interpretation Comme nts AG STREP GROUP A (THROAT) POC (test code = STREPAPOC) negative NEGATIVE POCT [id number] 01:46:00 Test Item Value Reference Range Interpretation Comments POCT PREG (test code = 1605) Negative On board controls acceptable with Present C Line (test code = 3574) POCT PREG LOT # (test code = HCG 20110903 357) POCT PREG TEST DATE (test 07/02/2023 code = 3576) Lab Interpretation (test code = Normal 80781-2) [facility] [id number] 01:46:00 Test Item Value Reference Range Interpretation Comments POCT PREG (test code = 1605) Negative On board controls acceptable with Present C Line (test code = 3574) POCT PREG LOT # (test code = HCG 20110903) POCT PREG TEST DATE (test 07/02/2023 code = 3576) Lab Interpretation (test code = Normal 36719-0) [facility] [id number] 01:46:00 Test Item Value Reference Range Interpretation Comments POCT PREG (test code = 1605) Negative On board controls acceptable with Present C Line (test code = 3574) POCT PREG LOT # (test code = HCG 20110903 357) POCT PREG TEST DATE (test 07/02/2023 code = 3576) Lab Interpretation (test code = Normal 65596-0) [facility] [id number] 01:46:00 Test Item Value Reference Range Interpretation Comments POCT PREG (test code = 1605) Negative On board controls acceptable with Present C Line (test code = 3574) POCT PREG LOT # (test code = HCG 20110903) POCT PREG TEST DATE (test 07/02/2023 code = 3576) Lab Interpretation (test code = Normal 56987-7) [facility] [id number] 01:46:00 Test Item Value Reference Range Interpretation Comments POCT PREG (test code = 1605) Negative On board controls acceptable with Present C Line (test code = 3574) POCT PREG LOT # (test code = HCG 20110903) POCT PREG TEST DATE (test 07/02/2023 code = 3576) Lab Interpretation (test code = Normal 53635-0) [facility] [id number] 01:46:00 Test Item Value Reference Range Interpretation Comments POCT PREG (test code = 1605) Negative On board controls acceptable with Present C Line (test code = 3574) POCT PREG LOT # (test code = HCG 20110903) POCT PREG TEST DATE (test 07/02/2023 code = 3576) Lab Interpretation (test code = Normal 62403-8) [facility] [id number] 01:46:00 Test Item Value Reference Range Interpretation Comments POCT PREG (test code = 1605) Negative On board controls acceptable with Present C Line (test code = 3574) POCT PREG LOT # (test code = HCG 20110903) POCT PREG TEST DATE (test 07/02/2023 code = 3576) Lab Interpretation (test code = Normal 37109-7) [facility] [id number] 01:46:00 Test Item Value Reference Range Interpretation Comments POCT PREG (test code = 1605) Negative On board controls acceptable with Present C Line (test code = 3574) POCT PREG LOT # (test code = HCG 20110903) POCT PREG TEST DATE (test 07/02/2023 code = 3576) Lab Interpretation (test code = Normal 44661-0) [facility] [id number] 01:46:00 Test Item Value Reference Range Interpretation Comments POCT PREG (test code = 1605) Negative On board controls acceptable with Present C Line (test code = 3574) POCT PREG LOT # (test code = HCG 20110903) POCT PREG TEST DATE (test 07/02/2023 code = 3576) Lab Interpretation (test code = Normal 16624-7) [facility] [id number] 01:46:00 Test Item Value Reference Range Interpretation Comments POCT PREG (test code = 1605) Negative On board controls acceptable with Present C Line (test code = 3574) POCT PREG LOT # (test code = HCG 20110903) POCT PREG TEST DATE (test 07/02/2023 code = 3576) Lab Interpretation (test code = Normal 61601-0) [facility] [id number] 01:46:00 Test Item Value Reference Range Interpretation Comments POCT PREG (test code = 1605) Negative On board controls acceptable with Present C Line (test code = 3574) POCT PREG LOT # (test code = HCG 20110903) POCT PREG TEST DATE (test 07/02/2023 code = 3576) Lab Interpretation (test code = Normal 66137-0) [facility] [id number] 01:46:00 Test Item Value Reference Range Interpretation Comments POCT PREG (test code = 1605) Negative On board controls acceptable with Present C Line (test code = 3574) POCT PREG LOT # (test code = HCG 20110903) POCT PREG TEST DATE (test 07/02/2023 code = 3576) Lab Interpretation (test code = Normal 75912-8) [facility] [id number] 01:46:00 Test Item Value Reference Range Interpretation Comments POCT PREG (test code = 1605) Negative On board controls acceptable with Present C Line (test code = 3574) POCT PREG LOT # (test code = HCG 20110903) POCT PREG TEST DATE (test 07/02/2023 code = 3576) Lab Interpretation (test code = Normal 27056-6) [facility] [id number] 01:46:00 Test Item Value Reference Range Interpretation Comments POCT PREG (test code = 1605) Negative On board controls acceptable with Present C Line (test code = 3574) POCT PREG LOT # (test code = HCG 20110903) POCT PREG TEST DATE (test 07/02/2023 code = 3576) Lab Interpretation (test code = Normal 65734-5) [facility] [id number] 01:46:00 Test Item Value Reference Range Interpretation Comments POCT PREG (test code = 1605) Negative On board controls acceptable with Present C Line (test code = 3574) POCT PREG LOT # (test code = HCG 20110903) POCT PREG TEST DATE (test 07/02/2023 code = 3576) Lab Interpretation (test code = Normal 72006-8) [facility] [id number] 01:46:00 Test Item Value Reference Range Interpretation Comments POCT PREG (test code = 1605) Negative On board controls acceptable with Present C Line (test code = 3574) POCT PREG LOT # (test code = HCG 20110903) POCT PREG TEST DATE (test 07/02/2023 code = 3576) Lab Interpretation (test code = Normal 67106-7) [facility] [id number] 01:46:00 Test Item Value Reference Range Interpretation Comments POCT PREG (test code = 1605) Negative On board controls acceptable with Present C Line (test code = 3574) POCT PREG LOT # (test code = HCG 20110903) POCT PREG TEST DATE (test 07/02/2023 code = 3576) Lab Interpretation (test code = Normal 79244-9) [facility] [id number] 01:46:00 Test Item Value Reference Range Interpretation Comments POCT PREG (test code = 1605) Negative On board controls acceptable with Present C Line (test code = 3574) POCT PREG LOT # (test code = HCG 20110903) POCT PREG TEST DATE (test 07/02/2023 code = 3576) Lab Interpretation (test code = Normal 24452-8) [facility] [id number] 01:46:00 Test Item Value Reference Range Interpretation Comments POCT PREG (test code = 1605) Negative On board controls acceptable with Present C Line (test code = 3574) POCT PREG LOT # (test code = HCG 20110903) POCT PREG TEST DATE (test 07/02/2023 code = 3576) Lab Interpretation (test code = Normal 90773-9) [facility] [id number] 01:46:00 Test Item Value Reference Range Interpretation Comments POCT PREG (test code = 1605) Negative On board controls acceptable with Present C Line (test code = 3574) POCT PREG LOT # (test code = HCG 20110903) POCT PREG TEST DATE (test 07/02/2023 code = 3576) Lab Interpretation (test code = Normal 96244-1) [facility] [id number] 01:46:00 Test Item Value Reference Range Interpretation Comments POCT PREG (test code = 1605) Negative On board controls acceptable with Present C Line (test code = 3574) POCT PREG LOT # (test code = HCG 20110903) POCT PREG TEST DATE (test 07/02/2023 code = 3576) Lab Interpretation (test code = Normal 06954-3) [facility] [id number] 01:46:00 Test Item Value Reference Range Interpretation Comments POCT PREG (test code = 1605) Negative On board controls acceptable with Present C Line (test code = 3574) POCT PREG LOT # (test code = HCG 20110903) POCT PREG TEST DATE (test 07/02/2023 code = 3576) Lab Interpretation (test code = Normal 53021-4) [facility] [id number] 01:46:00 Test Item Value Reference Range Interpretation Comments POCT PREG (test code = 1605) Negative On board controls acceptable with Present C Line (test code = 3574) POCT PREG LOT # (test code = HCG 20110903) POCT PREG TEST DATE (test 07/02/2023 code = 3576) Lab Interpretation (test code = Normal 74007-7) [facility] METABOLIC PANEL (NA, K, CL, CO2, GLUCOSE, BUN, CREATININE, CA)2022-04-05 11:08:28 Test Item Value Reference Range Interpretation Comments NA (test code = 137 mmol/L 135-145 4942076662) K (test code = 3.8 mmol/L 3.5-5 1060064973) CL (test code = 104 mmol/L 98-108 1628928696) CO2 TOTAL (test code 27 mmol/L 23-31 = 0814790589) AGAP (test code = 2-16 2890830605) BUN (test code = 13 mg/dL 7-23 7389671530) GLUCOSE (test code = 106 mg/dL 70-110 1966522807) CREATININE (test code 0.58 mg/dL 0.5-1.04 = 9311041237) CALCIUM (test code = 8.6 mg/dL 8.6-10.6 7132441501) eGFR (test code = mL/min/1.73m2 7773352735) MEDHAT (test code = MEDHAT) Association of [...] or urine or abnormalities in imaging tests). [facility] METABOLIC PANEL (NA, K, CL, CO2, GLUCOSE, BUN, CREATININE, CA)2022-04-05 11:08:28 Test Item Value Reference Range Interpretation Comments NA (test code = 137 mmol/L 135-145 3654520123) K (test code = 3.8 mmol/L 3.5-5 0532392770) CL (test code = 104 mmol/L 98-108 5894449751) CO2 TOTAL (test code 27 mmol/L 23-31 = 9068154306) AGAP (test code = 2-16 3680674212) BUN (test code = 13 mg/dL 7-23 9536492043) GLUCOSE (test code = 106 mg/dL 70-110 5396992687) CREATININE (test code 0.58 mg/dL 0.5-1.04 = 7720110790) CALCIUM (test code = 8.6 mg/dL 8.6-10.6 3792302710) eGFR (test code = mL/min/1.73m2 2593142679) MEDHAT (test code = MEDHAT) Association of [...] or urine or abnormalities in imaging tests). [facility] METABOLIC PANEL (NA, K, CL, CO2, GLUCOSE, BUN, CREATININE, CA)2022-04-05 11:08:28 Test Item Value Reference Range Interpretation Comments NA (test code = 137 mmol/L 135-145 6375072679) K (test code = 3.8 mmol/L 3.5-5 1331300036) CL (test code = 104 mmol/L 98-108 1051838653) CO2 TOTAL (test code 27 mmol/L 23-31 = 1628195586) AGAP (test code = 2-16 3853383961) BUN (test code = 13 mg/dL 7-23 7504768965) GLUCOSE (test code = 106 mg/dL 70-110 1962546584) CREATININE (test code 0.58 mg/dL 0.5-1.04 = 1795765462) CALCIUM (test code = 8.6 mg/dL 8.6-10.6 0026197490) eGFR (test code = mL/min/1.73m2 9623826176) MEDHAT (test code = MEDHAT) Association of [...] or urine or abnormalities in imaging tests). [facility] METABOLIC PANEL (NA, K, CL, CO2, GLUCOSE, BUN, CREATININE, CA)2022-04-05 11:08:28 Test Item Value Reference Range Interpretation Comments NA (test code = 137 mmol/L 135-145 8526363544) K (test code = 3.8 mmol/L 3.5-5 7955517429) CL (test code = 104 mmol/L 98-108 7332078809) CO2 TOTAL (test code 27 mmol/L 23-31 = 3773914211) AGAP (test code = 2-16 1462754044) BUN (test code = 13 mg/dL 7-23 9834369806) GLUCOSE (test code = 106 mg/dL 70-110 2069656878) CREATININE (test code 0.58 mg/dL 0.5-1.04 = 7589380342) CALCIUM (test code = 8.6 mg/dL 8.6-10.6 4048013150) eGFR (test code = mL/min/1.73m2 2822462078) MEDHAT (test code = MEDHAT) Association of [...] or urine or abnormalities in imaging tests). [facility] METABOLIC PANEL (NA, K, CL, CO2, GLUCOSE, BUN, CREATININE, CA)2022-04-05 11:08:28 Test Item Value Reference Range Interpretation Comments NA (test code = 137 mmol/L 135-145 7095247469) K (test code = 3.8 mmol/L 3.5-5 4066639256) CL (test code = 104 mmol/L 98-108 5111949687) CO2 TOTAL (test code 27 mmol/L 23-31 = 4053882784) AGAP (test code = 2-16 1123490123) BUN (test code = 13 mg/dL 7-23 3877037917) GLUCOSE (test code = 106 mg/dL 70-110 4550891240) CREATININE (test code 0.58 mg/dL 0.5-1.04 = 0919594153) CALCIUM (test code = 8.6 mg/dL 8.6-10.6 8822682256) eGFR (test code = mL/min/1.73m2 3311737600) MEDHAT (test code = MEDHAT) Association of [...] abnormalities in imaging tests). [facility] [facility] METABOLIC PANEL (NA, K, CL, CO2, GLUCOSE, BUN, CREATININE, CA)2022-04-05 11:08:28 Test Item Value Reference Range Interpretation Comments NA (test code = 137 mmol/L 135-145 3411445645) K (test code = 3.8 mmol/L 3.5-5 8781491148) CL (test code = 104 mmol/L 98-108 9074380841) CO2 TOTAL (test code 27 mmol/L 23-31 = 4970613644) AGAP (test code = 2-16 0232347616) BUN (test code = 13 mg/dL 7-23 8508609425) GLUCOSE (test code = 106 mg/dL 70-110 4629814752) CREATININE (test code 0.58 mg/dL 0.5-1.04 = 7840678413) CALCIUM (test code = 8.6 mg/dL 8.6-10.6 1180897946) eGFR (test code = mL/min/1.73m2 4799000179) MEDHAT (test code = MEDHAT) Association of [...] abnormalities in imaging tests). [facility] (NA, K, CL, CO2, GLUCOSE, BUN, CREATININE, CA)2022-04-05 11:08:28 Test Item Value Reference Range Interpretation Comments NA (test code = 137 mmol/L 135-145 4872542477) K (test code = 3.8 mmol/L 3.5-5 6614678678) CL (test code = 104 mmol/L 98-108 4583718801) CO2 TOTAL (test code 27 mmol/L 23-31 = 2257611398) AGAP (test code = 2-16 9606605187) BUN (test code = 13 mg/dL 7-23 9607762024) GLUCOSE (test code = 106 mg/dL 70-110 2813028274) CREATININE (test code 0.58 mg/dL 0.5-1.04 = 0039965679) CALCIUM (test code = 8.6 mg/dL 8.6-10.6 7378853940) eGFR (test code = mL/min/1.73m2 0482764943) MEDHAT (test code = MEDHAT) Association of [...] abnormalities in imaging tests). [facility] (NA, K, CL, CO2, GLUCOSE, BUN, CREATININE, CA)2022-04-05 11:08:28 Test Item Value Reference Range Interpretation Comments NA (test code = 137 mmol/L 135-145 3470768079) K (test code = 3.8 mmol/L 3.5-5 0437878804) CL (test code = 104 mmol/L 98-108 6290741789) CO2 TOTAL (test code 27 mmol/L 23-31 = 4491755601) AGAP (test code = 2-16 9167770920) BUN (test code = 13 mg/dL 7-23 2588066188) GLUCOSE (test code = 106 mg/dL 70-110 2379789471) CREATININE (test code 0.58 mg/dL 0.5-1.04 = 5661660639) CALCIUM (test code = 8.6 mg/dL 8.6-10.6 4523032830) eGFR (test code = mL/min/1.73m2 4280104713) MEDHAT (test code = MEDHAT) Association of [...] abnormalities in imaging tests). [facility] MET[facility]IC [facility] (NA, K, CL, CO2, GLUCOSE, BUN, CREATININE, CA)2022-04-05 11:08:28 Test Item Value Reference Range Interpretation Comments NA (test code = 137 mmol/L 135-145 4621299795) K (test code = 3.8 mmol/L 3.5-5 9834855207) CL (test code = 104 mmol/L 98-108 1034850649) CO2 TOTAL (test code 27 mmol/L 23-31 = 9290936481) AGAP (test code = 2-16 0261909576) BUN (test code = 13 mg/dL 7-23 1148354845) GLUCOSE (test code = 106 mg/dL 70-110 5984043035) CREATININE (test code 0.58 mg/dL 0.5-1.04 = 4875170781) CALCIUM (test code = 8.6 mg/dL 8.6-10.6 1057255524) eGFR (test code = mL/min/1.73m2 1472058790) MEDHAT (test code = MEDHAT) Association of [...] abnormalities in imaging tests). [facility] MET[facility]IC [facility] (NA, K, CL, CO2, GLUCOSE, BUN, CREATININE, CA)2022-04-05 11:08:28 Test Item Value Reference Range Interpretation Comments NA (test code = 137 mmol/L 135-145 0850926560) K (test code = 3.8 mmol/L 3.5-5 7059541630) CL (test code = 104 mmol/L 98-108 9407575379) CO2 TOTAL (test code 27 mmol/L 23-31 = 2782686390) AGAP (test code = 2-16 2137457612) BUN (test code = 13 mg/dL 7-23 6486974327) GLUCOSE (test code = 106 mg/dL 70-110 8430274447) CREATININE (test code 0.58 mg/dL 0.5-1.04 = 3017857031) CALCIUM (test code = 8.6 mg/dL 8.6-10.6 6534630934) eGFR (test code = mL/min/1.73m2 4301365940) MEDHAT (test code = MEDHAT) Association of [...] or urine or abnormalities in imaging tests). [facility] METABOLIC PANEL (NA, K, CL, CO2, GLUCOSE, BUN, CREATININE, CA)2022-04-05 11:08:28 Test Item Value Reference Range Interpretation Comments NA (test code = 137 mmol/L 135-145 0017362013) K (test code = 3.8 mmol/L 3.5-5 0569305077) CL (test code = 104 mmol/L 98-108 0802375424) CO2 TOTAL (test code 27 mmol/L 23-31 = 9583914535) AGAP (test code = 2-16 8408008456) BUN (test code = 13 mg/dL 7-23 0457852174) GLUCOSE (test code = 106 mg/dL 70-110 3242394929) CREATININE (test code 0.58 mg/dL 0.5-1.04 = 3391193489) CALCIUM (test code = 8.6 mg/dL 8.6-10.6 9693031779) eGFR (test code = mL/min/1.73m2 0955316180) MEDHAT (test code = MEDHAT) Association of [...] or urine or abnormalities in imaging tests). [facility] METABOLIC PANEL (NA, K, CL, CO2, GLUCOSE, BUN, CREATININE, CA)2022-04-05 11:08:28 Test Item Value Reference Range Interpretation Comments NA (test code = 137 mmol/L 135-145 5708801166) K (test code = 3.8 mmol/L 3.5-5 5266061203) CL (test code = 104 mmol/L 98-108 6007002123) CO2 TOTAL (test code 27 mmol/L 23-31 = 4483869661) AGAP (test code = 2-16 2982413836) BUN (test code = 13 mg/dL 7-23 2001570993) GLUCOSE (test code = 106 mg/dL 70-110 5418475753) CREATININE (test code 0.58 mg/dL 0.5-1.04 = 5409353013) CALCIUM (test code = 8.6 mg/dL 8.6-10.6 7686873475) eGFR (test code = mL/min/1.73m2 1414052350) MEDHAT (test code = MEDHAT) Association of [...] or urine or abnormalities in imaging tests). [facility] METABOLIC PANEL (NA, K, CL, CO2, GLUCOSE, BUN, CREATININE, CA)2022-04-05 11:08:28 Test Item Value Reference Range Interpretation Comments NA (test code = 137 mmol/L 135-145 3123176563) K (test code = 3.8 mmol/L 3.5-5 5726360946) CL (test code = 104 mmol/L 98-108 2591539531) CO2 TOTAL (test code 27 mmol/L 23-31 = 9627655459) AGAP (test code = 2-16 4802223709) BUN (test code = 13 mg/dL 7-23 1880070247) GLUCOSE (test code = 106 mg/dL 70-110 7574210324) CREATININE (test code 0.58 mg/dL 0.5-1.04 = 5394571093) CALCIUM (test code = 8.6 mg/dL 8.6-10.6 9307690019) eGFR (test code = mL/min/1.73m2 9064211195) MEDHAT (test code = MEDHAT) Association of [...] or urine or abnormalities in imaging tests). [facility] METABOLIC PANEL (NA, K, CL, CO2, GLUCOSE, BUN, CREATININE, CA)2022-04-05 11:08:28 Test Item Value Reference Range Interpretation Comments NA (test code = 137 mmol/L 135-145 8522234412) K (test code = 3.8 mmol/L 3.5-5 1439010127) CL (test code = 104 mmol/L 98-108 1890311706) CO2 TOTAL (test code 27 mmol/L 23-31 = 1972141333) AGAP (test code = 2-16 2619739007) BUN (test code = 13 mg/dL 7-23 1697858855) GLUCOSE (test code = 106 mg/dL 70-110 8634659331) CREATININE (test code 0.58 mg/dL 0.5-1.04 = 7723281901) CALCIUM (test code = 8.6 mg/dL 8.6-10.6 9792025470) eGFR (test code = mL/min/1.73m2 1976302796) MEDHAT (test code = MEDHAT) Association of [...] or urine or abnormalities in imaging tests). [facility] METABOLIC PANEL (NA, K, CL, CO2, GLUCOSE, BUN, CREATININE, CA)2022-04-05 11:08:28 Test Item Value Reference Range Interpretation Comments NA (test code = 137 mmol/L 135-145 8087116297) K (test code = 3.8 mmol/L 3.5-5.0 8134026655) CL (test code = 104 mmol/L 98-108 2638554425) CO2 TOTAL (test code 27 mmol/L 23-31 = 7686203799) AGAP (test code = 2-16 3982440314) BUN (test code = 13 mg/dL 7-23 4661983306) GLUCOSE (test code = 106 mg/dL 70-110 6743996810) CREATININE (test code 0.58 mg/dL 0.50-1.04 = 5475481494) CALCIUM (test code = 8.6 mg/dL 8.6-10.6 4265597701) eGFR (test code = mL/min/1.73m2 2662187656) MEDHAT (test code = MEDHAT) Association of [...] or urine or abnormalities in imaging tests). [facility] METABOLIC PANEL (NA, K, CL, CO2, GLUCOSE, BUN, CREATININE, CA)2022-04-05 11:08:28 Test Item Value Reference Range Interpretation Comments NA (test code = 137 mmol/L 135-145 5617553328) K (test code = 3.8 mmol/L 3.5-5.0 8165139668) CL (test code = 104 mmol/L 98-108 2282293210) CO2 TOTAL (test code 27 mmol/L 23-31 = 3532520748) AGAP (test code = 2-16 4976898254) BUN (test code = 13 mg/dL 7-23 7827613325) GLUCOSE (test code = 106 mg/dL 70-110 8492698974) CREATININE (test code 0.58 mg/dL 0.50-1.04 = 1165582921) CALCIUM (test code = 8.6 mg/dL 8.6-10.6 5798334867) eGFR (test code = mL/min/1.73m2 3498217088) MEDHAT (test code = MEDHAT) Association of [...] or urine or abnormalities in imaging tests). [facility] METABOLIC PANEL (NA, K, CL, CO2, GLUCOSE, BUN, CREATININE, CA)2022-04-05 11:08:28 Test Item Value Reference Range Interpretation Comments NA (test code = 137 mmol/L 135-145 2044774828) K (test code = 3.8 mmol/L 3.5-5.0 6798744317) CL (test code = 104 mmol/L 98-108 9583034585) CO2 TOTAL (test code 27 mmol/L 23-31 = 6621000974) AGAP (test code = 2-16 6827261643) BUN (test code = 13 mg/dL 7-23 5742710549) GLUCOSE (test code = 106 mg/dL 70-110 9979131451) CREATININE (test code 0.58 mg/dL 0.50-1.04 = 0421888332) CALCIUM (test code = 8.6 mg/dL 8.6-10.6 2548635642) eGFR (test code = mL/min/1.73m2 5968208751) MEDHAT (test code = MEDHAT) Association of [...] or urine or abnormalities in imaging tests). [facility] METABOLIC PANEL (NA, K, CL, CO2, GLUCOSE, BUN, CREATININE, CA)2022-04-05 11:08:28 Test Item Value Reference Range Interpretation Comments NA (test code = 137 mmol/L 135-145 3997444669) K (test code = 3.8 mmol/L 3.5-5.0 3903893785) CL (test code = 104 mmol/L 98-108 5710183829) CO2 TOTAL (test code 27 mmol/L 23-31 = 1205299724) AGAP (test code = 2-16 3116457507) BUN (test code = 13 mg/dL 7-23 3612781479) GLUCOSE (test code = 106 mg/dL 70-110 2569303666) CREATININE (test code 0.58 mg/dL 0.50-1.04 = 3772457594) CALCIUM (test code = 8.6 mg/dL 8.6-10.6 2940120122) eGFR (test code = mL/min/1.73m2 3201963203) MEDHAT (test code = MEDHAT) Association of [...] or urine or abnormalities in imaging tests). [facility] METABOLIC PANEL (NA, K, CL, CO2, GLUCOSE, BUN, CREATININE, CA)2022-04-05 11:08:28 Test Item Value Reference Range Interpretation Comments NA (test code = 137 mmol/L 135-145 2420739722) K (test code = 3.8 mmol/L 3.5-5.0 1891809754) CL (test code = 104 mmol/L 98-108 7748053489) CO2 TOTAL (test code 27 mmol/L 23-31 = 7450463778) AGAP (test code = 2-16 1313789218) BUN (test code = 13 mg/dL 7-23 1458896707) GLUCOSE (test code = 106 mg/dL 70-110 0091165739) CREATININE (test code 0.58 mg/dL 0.50-1.04 = 0723250242) CALCIUM (test code = 8.6 mg/dL 8.6-10.6 8150032659) eGFR (test code = mL/min/1.73m2 0234056446) MEDHAT (test code = MEDHAT) Association of [...] or urine or abnormalities in imaging tests). [facility] METABOLIC PANEL (NA, K, CL, CO2, GLUCOSE, BUN, CREATININE, CA)2022-04-05 11:08:28 Test Item Value Reference Range Interpretation Comments NA (test code = 137 mmol/L 135-145 4776711156) K (test code = 3.8 mmol/L 3.5-5.0 1885068790) CL (test code = 104 mmol/L 98-108 1850401951) CO2 TOTAL (test code 27 mmol/L 23-31 = 6365278193) AGAP (test code = 2-16 0145375439) BUN (test code = 13 mg/dL 7-23 8714776866) GLUCOSE (test code = 106 mg/dL 70-110 1258438627) CREATININE (test code 0.58 mg/dL 0.50-1.04 = 7069164934) CALCIUM (test code = 8.6 mg/dL 8.6-10.6 4990929614) eGFR (test code = mL/min/1.73m2 7975063069) MEDHAT (test code = MEDHAT) Association of [...] abnormalities in imaging tests). [facility] (NA, K, CL, CO2, GLUCOSE, BUN, CREATININE, CA)2022-04-05 11:08:28 Test Item Value Reference Range Interpretation Comments NA (test code = 137 mmol/L 135-145 1595719161) K (test code = 3.8 mmol/L 3.5-5.0 8681674476) CL (test code = 104 mmol/L 98-108 1460292995) CO2 TOTAL (test code 27 mmol/L 23-31 = 6641391835) AGAP (test code = 2-16 7335941883) BUN (test code = 13 mg/dL 7-23 0319980109) GLUCOSE (test code = 106 mg/dL 70-110 0073561597) CREATININE (test code 0.58 mg/dL 0.50-1.04 = 5740012660) CALCIUM (test code = 8.6 mg/dL 8.6-10.6 1712283009) eGFR (test code = mL/min/1.73m2 0186997662) MEDHAT (test code = MEDHAT) Association of [...] or urine or abnormalities in imaging tests). [facility] METABOLIC PANEL (NA, K, CL, CO2, GLUCOSE, BUN, CREATININE, CA)2022-04-05 11:08:28 Test Item Value Reference Range Interpretation Comments NA (test code = 137 mmol/L 135-145 8477815157) K (test code = 3.8 mmol/L 3.5-5.0 0123869455) CL (test code = 104 mmol/L 98-108 3364217107) CO2 TOTAL (test code 27 mmol/L 23-31 = 0571052142) AGAP (test code = 2-16 5411980599) BUN (test code = 13 mg/dL 7-23 1275939466) GLUCOSE (test code = 106 mg/dL 70-110 6496839800) CREATININE (test code 0.58 mg/dL 0.50-1.04 = 9108433803) CALCIUM (test code = 8.6 mg/dL 8.6-10.6 2377954931) eGFR (test code = mL/min/1.73m2 9822782988) MEDHAT (test code = MEDHAT) Association of [...] or urine or abnormalities in imaging tests). [facility] METABOLIC PANEL (NA, K, CL, CO2, GLUCOSE, BUN, CREATININE, CA)2022-04-05 11:08:28 Test Item Value Reference Range Interpretation Comments NA (test code = 137 mmol/L 135-145 3056913277) K (test code = 3.8 mmol/L 3.5-5.0 2458630607) CL (test code = 104 mmol/L 98-108 8797286319) CO2 TOTAL (test code 27 mmol/L 23-31 = 2793404649) AGAP (test code = 2-16 9541513282) BUN (test code = 13 mg/dL 7-23 1985866110) GLUCOSE (test code = 106 mg/dL 70-110 7658761854) CREATININE (test code 0.58 mg/dL 0.50-1.04 = 6040786331) CALCIUM (test code = 8.6 mg/dL 8.6-10.6 0244887839) eGFR (test code = mL/min/1.73m2 3219576732) MEDHAT (test code = MEDHAT) Association of [...] abnormalities in imaging tests). [facility] MET[facility]IC [facility] (NA, K, CL, CO2, GLUCOSE, BUN, CREATININE, CA)2022-04-05 11:08:28 Test Item Value Reference Range Interpretation Comments NA (test code = 137 mmol/L 135-145 0784994493) K (test code = 3.8 mmol/L 3.5-5 1083670671) CL (test code = 104 mmol/L 98-108 1857339520) CO2 TOTAL (test code 27 mmol/L 23-31 = 4881131355) AGAP (test code = 2-16 9393484983) BUN (test code = 13 mg/dL 7-23 9173229271) GLUCOSE (test code = 106 mg/dL 70-110 1424198268) CREATININE (test code 0.58 mg/dL 0.5-1.04 = 4405336158) CALCIUM (test code = 8.6 mg/dL 8.6-10.6 6764013886) eGFR (test code = mL/min/1.73m2 6821960629) MEDHAT (test code = MEDHAT) Association of [...] or urine or abnormalities in imaging tests). [facility] with [id number] 10:50:28 Test Item Value Reference Range Interpretation [...] RDW-SD (test code = 43.6 fL 39-49.9 77921-5) RDW-CV (test code = 13.6 % 12-15.5 788-0) PLT (test code = See_Comment [Automated 777-3) message] The sy stem which generated this result transmitted reference range : 166 - 358 10*3/ ?L. The reference r mann was not used to interpret this result as normal/abnormal . MPV (test code = 9.9 fL 9.5-12.9 15641-8) NRBC/100 WBC (test See_Comment [Automat ed code = 8512745144) message] The system which generated this result transmitted reference range : 0.0 - 10.0 /100 WBCs. The refer ence range was not u sed to interpret th is result as normal/abnormal . NRBC x10^3 (test code See_Comment [Auto mated = 5903684124) message] The s ystem which generated this result transmitted reference range : 10*3/?L. The reference range was not used to interpret this result as normal/abnormal . GRAN MAT (NEUT) % 65.5 % (test code = 770-8) IMM GRAN % (test code 0.30 % = 8946708996) LYMPH % (test code = 25.3 % 736-9) MONO % (test code = 8.4 % 5905-5) EOS % (test code = 0.0 % 713-8) BASO % (test code = 0.5 % 706-2) GRAN MAT x10^3(ANC) 6.56 10*3/uL 1.88-7.09 (test code = 3297085441) IMM GRAN x10^3 (test 0.03 10*3/uL 0-0.06 code = 8544486899) LYMPH x10^3 (test code 2.53 10*3/uL 1.32-3.29 = 731-0) MONO x10^3 (test code 0.84 10*3/uL 0.33-0.92 = 742-7) EOS x10^3 (test code = 0.03-0.39 L 711-2) BASO x10^3 (test code 0.05 10*3/uL 0.01-0.07 = 704-7) Lab Interpretation Abnormal (test code = 02138-8) [facility] with [id number] 10:50:28 Test Item Value Reference Range Interpretation Comments WBC (test code = See_Comment [Automated 3890-2) message] The sy stem which generated this result transmitted reference range : 4.30 - 11.10 10*3/?L. The reference range was not used to interpret this result as normal/abnormal . RBC (test code = See_Comment [Automated 624-8) message] The sy stem which generated this [...] RDW-SD (test code = 43.6 fL 39-49.9 18354-2) RDW-CV (test code = 13.6 % 12-15.5 788-0) PLT (test code = See_Comment [Automated 777-3) message] The sy stem which generated this result transmitted reference range : 166 - 358 10*3/ ?L. The reference r mann was not used to interpret this result as normal/abnormal . MPV (test code = 9.9 fL 9.5-12.9 63639-0) NRBC/100 WBC (test See_Comment [Automat ed code = 9463469463) message] The system which generated this result transmitted reference range : 0.0 - 10.0 /100 WBCs. The refer ence range was not u sed to interpret th is result as normal/abnormal . NRBC x10^3 (test code See_Comment [Auto mated = 6999248044) message] The s ystem which generated this result transmitted reference range : 10*3/?L. The reference range was not used to interpret this result as normal/abnormal . GRAN MAT (NEUT) % 65.5 % (test code = 770-8) IMM GRAN % (test code 0.30 % = 5394211994) LYMPH % (test code = 25.3 % 736-9) MONO % (test code = 8.4 % 5905-5) EOS % (test code = 0.0 % 713-8) BASO % (test code = 0.5 % 706-2) GRAN MAT x10^3(ANC) 6.56 10*3/uL 1.88-7.09 (test code = 8826351279) IMM GRAN x10^3 (test 0.03 10*3/uL 0-0.06 code = 3373913998) LYMPH x10^3 (test code 2.53 10*3/uL 1.32-3.29 = 731-0) MONO x10^3 (test code 0.84 10*3/uL 0.33-0.92 = 742-7) EOS x10^3 (test code = 0.03-0.39 L 711-2) BASO x10^3 (test code 0.05 10*3/uL 0.01-0.07 = 704-7) Lab Interpretation Abnormal (test code = 44156-8) [facility] [id number] 01:03:38 Test Item Value Reference Interpretation Comments Range TROPONIN I (test 0.001 ng/mL See_Comment [Automated code = 0397684373) message] The system which generated this result [...] biotin. Lab Interpretation Normal (test code = 57291-7) [facility] [id number] 01:03:38 Test Item Value Reference Interpretation Comments Range TROPONIN I (test 0.001 ng/mL See_Comment [Automated code = 1858652367) message] The system which generated this result [...] biotin. Lab Interpretation Normal (test code = 51897-7) [facility] [id number] 01:03:38 Test Item Value Reference Interpretation Comments Range TROPONIN I (test 0.001 ng/mL See_Comment [Automated code = 1894372389) message] The system which generated this result [...] biotin. Lab Interpretation Normal (test code = 20229-9) [facility] [id number] 01:03:38 Test Item Value Reference Interpretation Comments Range TROPONIN I (test 0.001 ng/mL See_Comment [Automated code = 9308100247) message] The system which generated this result [...] biotin. Lab Interpretation Normal (test code = 75041-0) [facility] [id number] 01:03:38 Test Item Value Reference Interpretation Comments Range TROPONIN I (test 0.001 ng/mL See_Comment [Automated code = 5185159314) message] The system which generated this result [...] biotin. Lab Interpretation Normal (test code = 43915-7) [facility] [id number] 01:03:38 Test Item Value Reference Interpretation Comments Range TROPONIN I (test 0.001 ng/mL See_Comment [Automated code = 0966946510) message] The system which generated this result [...] biotin. Lab Interpretation Normal (test code = 95534-0) [facility] [id number] 01:03:38 Test Item Value Reference Interpretation Comments Range TROPONIN I (test 0.001 ng/mL See_Comment [Automated code = 7423299869) message] The system which generated this result [...] biotin. Lab Interpretation Normal (test code = 66531-6) [facility] [id number] 01:03:38 Test Item Value Reference Interpretation Comments Range TROPONIN I (test 0.001 ng/mL See_Comment [Automated code = 0854146878) message] The system which generated this result [...] biotin. Lab Interpretation Normal (test code = 90524-7) [facility] [id number] 01:03:38 Test Item Value Reference Interpretation Comments Range TROPONIN I (test 0.001 ng/mL See_Comment [Automated code = 8665695246) message] The system which generated this result [...] biotin. Lab Interpretation Normal (test code = 35522-6) [facility] [id number] 01:03:38 Test Item Value Reference Interpretation Comments Range TROPONIN I (test 0.001 ng/mL See_Comment [Automated code = 9099169111) message] The system which generated this result [...] biotin. Lab Interpretation Normal (test code = 59124-6) [facility] [id number] 01:03:38 Test Item Value Reference Interpretation Comments Range TROPONIN I (test 0.001 ng/mL See_Comment [Automated code = 9113667305) message] The system which generated this result [...] biotin. Lab Interpretation Normal (test code = 50392-6) [facility] [id number] 01:03:38 Test Item Value Reference Interpretation Comments Range TROPONIN I (test 0.001 ng/mL See_Comment [Automated code = 3072251285) message] The system which generated this result [...] biotin. Lab Interpretation Normal (test code = 37440-9) [facility] [id number] 01:03:38 Test Item Value Reference Interpretation Comments Range TROPONIN I (test 0.001 ng/mL See_Comment [Automated code = 8764610231) message] The system which generated this result [...] biotin. Lab Interpretation Normal (test code = 31235-4) [facility] [id number] 01:03:38 Test Item Value Reference Interpretation Comments Range TROPONIN I (test 0.001 ng/mL See_Comment [Automated code = 8545920638) message] The system which generated this result [...] biotin. Lab Interpretation Normal (test code = 81823-3) [facility] [id number] 01:03:38 Test Item Value Reference Interpretation Comments Range TROPONIN I (test 0.001 ng/mL See_Comment [Automated code = 9998662911) message] The system which generated this result [...] biotin. Lab Interpretation Normal (test code = 22301-0) [facility] [id number] 01:03:38 Test Item Value Reference Interpretation Comments Range TROPONIN I (test 0.001 ng/mL See_Comment [Automated code = 3312394806) message] The system which generated this result [...] biotin. Lab Interpretation Normal (test code = 82491-3) [facility] [id number] 01:03:38 Test Item Value Reference Interpretation Comments Range TROPONIN I (test 0.001 ng/mL See_Comment [Automated code = 6163526168) message] The system which generated this result [...] biotin. Lab Interpretation Normal (test code = 84407-2) [facility] [id number] 01:03:38 Test Item Value Reference Interpretation Comments Range TROPONIN I (test 0.001 ng/mL See_Comment [Automated code = [id number]) message] The system which generated this result [...] biotin. Lab Interpretation Normal (test code = 92596-3) [facility] [id number] 01:03:38 Test Item Value Reference Interpretation Comments Range TROPONIN I (test 0.001 ng/mL See_Comment [Automated code = [id number]) message] The system which generated this result [...] biotin. Lab Interpretation Normal (test code = 75547-4) [facility] [id number] 01:03:38 Test Item Value Reference Interpretation Comments Range TROPONIN I (test 0.001 ng/mL See_Comment [Automated code = [id number]) message] The system which generated this result [...] biotin. Lab Interpretation Normal (test code = 50972-8) [facility] [id number] 01:03:38 Test Item Value Reference Interpretation Comments Range TROPONIN I (test 0.001 ng/mL See_Comment [Automated code = [id number]) message] The system which generated this result [...] biotin. Lab Interpretation Normal (test code = 94903-7) [facility] [facility] [id number] 01:03:38 Test Item Value Reference Interpretation Comments Range TROPONIN I (test 0.001 ng/mL See_Comment [Automated code = [id number]) message] The system which generated this result [...] biotin. Lab Interpretation Normal (test code = 58335-8) [facility] [id number] 01:03:38 Test Item Value Reference Interpretation Comments Range TROPONIN I (test 0.001 ng/mL See_Comment [Automated code = [id number]) message] The system which generated this result [...] biotin. Lab Interpretation Normal (test code = 90596-9) [facility] [id number] 01:03:38 Test Item Value Reference Interpretation Comments Range TROPONIN I (test 0.001 ng/mL See_Comment [Automated code = 8264607683) message] The system which generated this result [...] biotin. Lab Interpretation Normal (test code = 37895-2) [facility] [id number] 21:06:03 Test Item Value Reference Range Interpretation Comments ABO & RH (test code A Positive Performe d at [facility] = 20) Laboratory [facility] Blood Bank[address] [place] [address] Free: [phone] A No. [id number] IAT (test code = Negative Performed a t [facility] 1185) Laboratory [facility] Blood Bank[address] [place], [place] [address]Toll Free: [phone] A No. [id number] [facility] and Screen - ONCE [id number] 21:06:03 Test Item Value Reference Range Interpretation Comments ABO & RH (test code A Positive Performe d at [facility] = 20) Laboratory [facility] [place], [place] [address]Toll Free: [phone] A No. [id number] IAT (test code = Negative Performed a t [facility] 1185) Laboratory [facility] Blood [facility] [place], [place] [address]Toll Free: [phone] A No. [id number] [facility] and Screen - ONCE [id number] 21:06:03 Test Item Value Reference Range Interpretation Comments ABO & RH (test code A Positive Performe d at [facility] = 20) Laboratory [facility] Blood [facility] [place], [place] [address]Toll Free: [phone] A No. [id number] IAT (test code = Negative Performed a t [facility] 1185) Laboratory [facility] Blood [place] [address]Toll Free: [phone] A No. [id number] [facility] - [facility] [id number] 21:06:03 Test Item Value Reference Range Interpretation Comments ABO & RH (test code A Positive Performe d at [facility] = 20) Laboratory [facility] Blood [place] [address]Toll Free: [phone] A No. [id number] IAT (test code = Negative Performed a t [facility] 1185) Laboratory [facility] Blood [address]Toll Free: [phone] A No. [id number] [facility] and Screen - ONCE [id number] 21:06:03 Test Item Value Reference Range Interpretation Comments ABO & RH (test code A Positive Performe d at [facility] = 20) Laboratory [facility] Blood [place] [address]Toll Free: [phone] A No. [id number] IAT (test code = Negative Performed a t [facility] 1185) Laboratory [facility] Blood [address] [place], [place] [address]Toll Free: [phone] A No. [id number] [facility] and Screen - ONCE [id number] 21:06:03 Test Item Value Reference Range Interpretation Comments ABO & RH (test code A Positive Performe d at [facility] = 20) Laboratory [facility] Blood [address]Toll Free: [phone] A No. [id number] IAT (test code = Negative Performed a t [facility] 1185) Laboratory [facility] [address] [place], [place] [address]Toll Free: [phone] A No. [id number] [facility] - [facility] [id number] 21:06:03 Test Item Value Reference Range Interpretation Comments ABO & RH (test code A Positive Performe d at [facility] = 20) Laboratory [facility] Blood [place] [address]Toll Free: [phone] A No. [id number] IAT (test code = Negative Performed a t [facility] 1185) Laboratory [facility] Blood [place] [address]Toll Free: [phone] A No. [id number] [facility] and Screen - ONCE [id number] 21:06:03 Test Item Value Reference Range Interpretation Comments ABO & RH (test code A Positive Performe d at [facility] = 20) Laboratory [facility] Blood [place] [address]Toll Free: [phone] A No. [id number] IAT (test code = Negative Performed a t [facility] 1185) Laboratory [facility] Blood [place] [address]Toll Free: [phone] A No. [id number] [facility] and Screen - ONCE [id number] 21:06:03 Test Item Value Reference Range Interpretation Comments ABO & RH (test code A Positive Performe d at [facility] = 20) Laboratory [facility] [address] [place], [place] [address]Toll Free: [phone] A No. [id number] IAT (test code = Negative Performed a t [facility] 1185) Laboratory [facility] Blood [place] [address]Toll Free: [phone] A No. [id number] [facility] and Screen - ONCE [id number] 21:06:03 Test Item Value Reference Range Interpretation Comments ABO & RH (test code A Positive Performe d at [facility] = 20) Laboratory [facility] [address] [place], [place] [address]Toll Free: [phone] A No. [id number] IAT (test code = Negative Performed a t [facility] 1185) Laboratory [facility] Blood [address]Toll Free: [phone] A No. [id number] [facility] [id number] 21:06:03 Test Item Value Reference Range Interpretation Comments ABO & RH (test code A Positive Performe d at [facility] = 20) Laboratory [facility] Blood [place] [address]Toll Free: [phone] A No. [id number] IAT (test code = Negative Performed a t [facility] 1185) Laboratory [facility] [address] [place], [place] [address]Toll Free: [phone] A No. [id number] [facility] [id number] 21:06:03 Test Item Value Reference Range Interpretation Comments ABO & RH (test code A Positive Performe d at [facility] = 20) Laboratory [facility] Blood [address] [place], [place] [address]Toll Free: [phone] A No. [id number] IAT (test code = Negative Performed a t [facility] 1185) Laboratory [facility] Blood [address] [place] [address]Hwnx Free: [phone] A No. [id number] [facility] and Screen - ONCE [id number] 21:06:03 Test Item Value Reference Range Interpretation Comments ABO & RH (test code A Positive Performe d at [facility] = 20) Laboratory [facility] [address] [place], [place] [address]Toll Free: [phone] A No. [id number] IAT (test code = Negative Performed a t [facility] 1185) Laboratory [facility] [address] [place], [place] [address]Toll Free: [phone] A No. [id number] [facility] and Screen - ONCE [id number] 21:06:03 Test Item Value Reference Range Interpretation Comments ABO & RH (test code A Positive Performe d at [facility] = 20) Laboratory [facility] [address] [place], [place] [address]Toll Free: [phone] A No. [id number] IAT (test code = Negative Performed a t [facility] 1185) Laboratory [facility] Blood [address]Toll Free: [phone] A No. [id number] [facility] and Screen - ONCE [id number] 21:06:03 Test Item Value Reference Range Interpretation Comments ABO & RH (test code A Positive Performe d at [facility] = 20) Laboratory [facility] Blood [address]Toll Free: [phone] A No. [id number] IAT (test code = Negative Performed a t [facility] 1185) Laboratory [facility] Blood [place] [address]Toll Free: [phone] A No. [id number] [facility] and Screen - ONCE [id number] 21:06:03 Test Item Value Reference Range Interpretation Comments ABO & RH (test code A Positive Performe d at [facility] = 20) Laboratory [facility] Blood [address] [place] [address] Free: [phone] A No. [id number] IAT (test code = Negative Performed a t [facility] 1185) Laboratory [facility] [address] [place], [place] [address]Toll Free: [phone] A No. [id number] [facility] and Screen - ONCE [id number] 21:06:03 Test Item Value Reference Range Interpretation Comments ABO & RH (test code A Positive Performe d at [facility] = 20) Laboratory [facility] Blood [address] [address] Free: [phone] A No. [id number] IAT (test code = Negative Performed a t [facility] 1185) Laboratory [facility] Blood [address] [address]Dzxy Free: [phone] A No. [id number] [facility] and Screen - ONCE [id number] 21:06:03 Test Item Value Reference Range Interpretation Comments ABO & RH (test code A Positive Performe d at [facility] = 20) Laboratory [facility] Blood [place] [address]Toll Free: [phone] A No. [id number] IAT (test code = Negative Performed a t [facility] 1185) Laboratory [facility] Blood [address] [address] Free: [phone] A No. [id number] [facility] and Screen - ONCE [id number] 21:06:03 Test Item Value Reference Range Interpretation Comments ABO & RH (test code A Positive Performe d at [facility] = 20) Laboratory [facility] Blood [address] [address]ofe Free: [phone] A No. [id number] IAT (test code = Negative Performed a t [facility] 1185) Laboratory [facility] Blood [address] [place] [address]Ybqv Free: [phone] A No. [id number] [facility] and Screen - ONCE [id number] 21:06:03 Test Item Value Reference Range Interpretation Comments ABO & RH (test code A Positive Performe d at [facility] = 20) Laboratory [facility] [address] [place], [place] [address]Toll Free: [phone] A No. [id number] IAT (test code = Negative Performed a t [facility] 1185) Laboratory [facility] Blood [address]Toll Free: [phone] A No. [id number] [facility] [id number] 21:06:03 Test Item Value Reference Range Interpretation Comments ABO & RH (test code A Positive Performe d at [facility] = 20) Laboratory [facility] Blood [place] [address]Toll Free: [phone] A No. [id number] IAT (test code = Negative Performed a t [facility] 1185) Laboratory [facility] Blood [place] [address]Toll Free: [phone] A No. [id number] [facility] [id number] 21:06:03 Test Item Value Reference Range Interpretation Comments ABO & RH (test code A Positive Performe d at [facility] = 20) Laboratory [facility] Blood [place] [address]Toll Free: [phone] A No. [id number] IAT (test code = Negative Performed a t [facility] 1185) Laboratory [facility] [address] [place], [place] [address]Toll Free: [phone] A No. [id number] [facility] [id number] 21:06:03 Test Item Value Reference Range Interpretation Comments ABO & RH (test code A Positive Performe d at [facility] = 20) Laboratory [facility] [address] [place], [place] [address]Toll Free: [phone] A No. [id number] IAT (test code = Negative Performed a t [facility] 1185) Laboratory [facility] Blood [place] [address]Toll Free: [phone] A No. [id number] [facility] [id number] 21:06:03 Test Item Value Reference Range Interpretation Comments ABO & RH (test code A Positive Performe d at [facility] = 20) Laboratory [facility] Blood [place] [address]Toll Free: [phone] A No. [id number] IAT (test code = Negative Performed a t [facility] 1185) Laboratory [facility] Blood [place] [address]Toll Free: [phone] A No. [id number] [facility] (Lab Only)2022-04-04 20:58:06 Test Item Value Reference Range Interpretation Comments ABO & RH (test code A Positive Performe d at [facility] = 20) Laboratory [facility] Blood [place] [address]Toll Free: [phone] A No. [id number] [facility] (Lab Only)2022-04-04 20:58:06 Test Item Value Reference Range Interpretation Comments ABO & RH (test code A Positive Performe d at [facility] = 20) Laboratory [facility] Blood [place] [address]Toll Free: [phone] A No. [id number] [facility] (Lab Only)2022-04-04 20:58:06 Test Item Value Reference Range Interpretation Comments ABO & RH (test code A Positive Performe d at [facility] = 20) Laboratory [facility] Blood [place] [address]Toll Free: [phone] A No. [id number] [facility] (Lab Only)2022-04-04 20:58:06 Test Item Value Reference Range Interpretation Comments ABO & RH (test code A Positive Performe d at [facility] = 20) Laboratory [facility] [address] [place], [place] [address]Toll Free: [phone] A No. [id number] [facility] (Lab Only)2022-04-04 20:58:06 Test Item Value Reference Range Interpretation Comments ABO & RH (test code A Positive Performe d at [facility] = 20) Laboratory [facility] [address] [place], [place] [address]Toll Free: [phone] A No. [id number] [facility] (Lab Only)2022-04-04 20:58:06 Test Item Value Reference Range Interpretation Comments ABO & RH (test code A Positive Performe d at [facility] = 20) Laboratory [facility] Blood [place] [address]Toll Free: [phone] A No. [id number] [facility] (Lab Only)2022-04-04 20:58:06 Test Item Value Reference Range Interpretation Comments ABO & RH (test code A Positive Performe d at [facility] = 20) Laboratory [facility] Blood [place] [address]Toll Free: [phone] A No. [id number] [facility] (Lab Only)2022-04-04 20:58:06 Test Item Value Reference Range Interpretation Comments ABO & RH (test code A Positive Performe d at [facility] = 20) Laboratory [facility] [address] [place], [place] [address]Toll Free: [phone] A No. [id number] [facility] (Lab Only)2022-04-04 20:58:06 Test Item Value Reference Range Interpretation Comments ABO & RH (test code A Positive Performe d at [facility] = 20) Laboratory [facility] [address] [place], [place] [address]Toll Free: [phone] A No. [id number] [facility]2022-04-04 20:58:06 Test Item Value Reference Range Interpretation Comments ABO & RH (test code A Positive Performe d at [facility] = 20) Laboratory [facility] [address] [place], [place] [address]Toll Free: [phone] A No. [id number] [facility] (Lab Only)2022-04-04 20:58:06 Test Item Value Reference Range Interpretation Comments ABO & RH (test code A Positive Performe d at [facility] = 20) Laboratory [facility] Blood [place] [address]Toll Free: [phone] A No. [id number] [facility] (Lab Only)2022-04-04 20:58:06 Test Item Value Reference Range Interpretation Comments ABO & RH (test code A Positive Performe d at [facility] = 20) Laboratory [facility] [address] [place], [place] [address]Toll Free: [phone] A No. [id number] [facility] (Lab Only)2022-04-04 20:58:06 Test Item Value Reference Range Interpretation Comments ABO & RH (test code A Positive Performe d at [facility] = 20) Laboratory [facility] [address] [place], [place] [address]Toll Free: [phone] A No. [id number] [facility] (Lab Only)2022-04-04 20:58:06 Test Item Value Reference Range Interpretation Comments ABO & RH (test code A Positive Performe d at [facility] = 20) Laboratory [facility] Blood [address] [place], [place] [address]Toll Free: [phone] A No. [id number] [facility] (Lab Only)2022-04-04 20:58:06 Test Item Value Reference Range Interpretation Comments ABO & RH (test code A Positive Performe d at [facility] = 20) Laboratory [facility] [address] [place], [place] [address]Toll Free: [phone] A No. [id number] [facility] (Lab Only)2022-04-04 20:58:06 Test Item Value Reference Range Interpretation Comments ABO & RH (test code A Positive Performe d at [facility] = 20) Laboratory [facility] [address] [place], [place] [address]Toll Free: [phone] A No. [id number] [facility] (Lab Only)2022-04-04 20:58:06 Test Item Value Reference Range Interpretation Comments ABO & RH (test code A Positive Performe d at [facility] = 20) Laboratory [facility] Blood [place] [address]Toll Free: [phone] A No. [id number] [facility] (Lab Only)2022-04-04 20:58:06 Test Item Value Reference Range Interpretation Comments ABO & RH (test code A Positive Performe d at [facility] = 20) Laboratory [facility] Blood [place] [address]Toll Free: [phone] A No. [id number] [facility] (Lab Only)2022-04-04 20:58:06 Test Item Value Reference Range Interpretation Comments ABO & RH (test code A Positive Performe d at [facility] = 20) Laboratory [facility] [address] [place], [place] [address]Toll Free: [phone] A No. [id number] [facility] (Lab Only)2022-04-04 20:58:06 Test Item Value Reference Range Interpretation Comments ABO & RH (test code A Positive Performe d at [facility] = 20) Laboratory [facility] Blood [place] [address]Toll Free: [phone] A No. [id number] [facility] Conf[facility] (Lab Only)2022-04-04 20:58:06 Test Item Value Reference Range Interpretation Comments ABO & RH (test code A Positive Performe d at [facility] = 20) Laboratory [facility] [address] [place], [place] [address]Toll Free: [phone] A No. [id number] [facility] (Lab Only)2022-04-04 20:58:06 Test Item Value Reference Range Interpretation Comments ABO & RH (test code A Positive Performe d at [facility] = 20) Laboratory [facility] [address] [place], [place] [address]Toll Free: [phone] A No. [id number] [facility] (Lab Only)2022-04-04 20:58:06 Test Item Value Reference Range Interpretation Comments ABO & RH (test code A Positive Performe d at [facility] = 20) Laboratory [facility] [address] [place], [place] [address]Toll Free: [phone] A No. [id number] [facility] (Lab Only)2022-04-04 20:58:06 Test Item Value Reference Range Interpretation Comments ABO & RH (test code A Positive Performe d at [facility] = 20) Laboratory [facility] [address] [place], [place] [address]Toll Free: [phone] A No. [id number] [facility], [id number] 19:40:46 Test Item Value Reference Range Interpretation Comments PREG SERUM (test code Negative = 3749249172) MEDHAT (test code = MEDHAT) Less than 10 IU/L. ?If low titer or ectopic is suspected, resubmit specimen in 48-72 hours. [facility], [id number] 19:40:46 Test Item Value Reference Range Interpretation Comments PREG SERUM (test code Negative = 7495157749) MEDHAT (test code = MEDHAT) Less than 10 IU/L. ?If low titer or ectopic is suspected, resubmit specimen in 48-72 hours. [facility], [id number] 19:40:46 Test Item Value Reference Range Interpretation Comments PREG SERUM (test code Negative = 2515396672) MEDHAT (test code = MEDHAT) Less than 10 IU/L. ?If low titer or ectopic is suspected, resubmit specimen in 48-72 hours. [facility] [id number] 19:40:46 Test Item Value Reference Range Interpretation Comments PREG SERUM (test code Negative = 0351152921) MEDHAT (test code = MEDHAT) Less than 10 IU/L. ?If low titer or ectopic is suspected, resubmit specimen in 48-72 hours. [facility], [id number] 19:40:46 Test Item Value Reference Range Interpretation Comments PREG SERUM (test code Negative = 8503996391) MEDHAT (test code = MEDHAT) Less than 10 IU/L. ?If low titer or ectopic is suspected, resubmit specimen in 48-72 hours. [facility], [id number] 19:40:46 Test Item Value Reference Range Interpretation Comments PREG SERUM (test code Negative = 0280704766) MEDHAT (test code = MEDHAT) Less than 10 IU/L. ?If low titer or ectopic is suspected, resubmit specimen in 48-72 hours. [facility], [id number] 19:40:46 Test Item Value Reference Range Interpretation Comments PREG SERUM (test code Negative = 6423584143) MEDHAT (test code = MEDHAT) Less than 10 IU/L. ?If low titer or ectopic is suspected, resubmit specimen in 48-72 hours. [facility], [id number] 19:40:46 Test Item Value Reference Range Interpretation Comments PREG SERUM (test code Negative = 4806858541) MEDHAT (test code = MEDHAT) Less than 10 IU/L. ?If low titer or ectopic is suspected, resubmit specimen in 48-72 hours. [facility], [id number] 19:40:46 Test Item Value Reference Range Interpretation Comments PREG SERUM (test code Negative = 3533708557) MEDHAT (test code = MEDHAT) Less than 10 IU/L. ?If low titer or ectopic is suspected, resubmit specimen in 48-72 hours. [facility], [id number] 19:40:46 Test Item Value Reference Range Interpretation Comments PREG SERUM (test code Negative = 7609524510) MEDHAT (test code = MEDHAT) Less than 10 IU/L. ?If low titer or ectopic is suspected, resubmit specimen in 48-72 hours. [facility], [id number] 19:40:46 Test Item Value Reference Range Interpretation Comments PREG SERUM (test code Negative = 7845077782) MEDHAT (test code = MEDHAT) Less than 10 IU/L. ?If low titer or ectopic is suspected, resubmit specimen in 48-72 hours. [facility], [id number] 19:40:46 Test Item Value Reference Range Interpretation Comments PREG SERUM (test code Negative = 9121921163) MEDHAT (test code = MEDHAT) Less than 10 IU/L. ?If low titer or ectopic is suspected, resubmit specimen in 48-72 hours. [facility], [id number] 19:40:46 Test Item Value Reference Range Interpretation Comments PREG SERUM (test code Negative = 0623935910) MEDHAT (test code = MEDHAT) Less than 10 IU/L. ?If low titer or ectopic is suspected, resubmit specimen in 48-72 hours. [facility], [id number] 19:40:46 Test Item Value Reference Range Interpretation Comments PREG SERUM (test code Negative = 8332537849) MEDHAT (test code = MEDHAT) Less than 10 IU/L. ?If low titer or ectopic is suspected, resubmit specimen in 48-72 hours. [facility] [facility], [id number] 19:40:46 Test Item Value Reference Range Interpretation Comments PREG SERUM (test code Negative = 8634405079) MEDHAT (test code = MEDHAT) Less than 10 IU/L. ?If low titer or ectopic is suspected, resubmit specimen in 48-72 hours. [facility] [id number] 19:40:46 Test Item Value Reference Range Interpretation Comments PREG SERUM (test code Negative = 8763392862) MEDHAT (test code = MEDHAT) Less than 10 IU/L. ?If low titer or ectopic is suspected, resubmit specimen in 48-72 hours. [facility], [id number] 19:40:46 Test Item Value Reference Range Interpretation Comments PREG SERUM (test code Negative = 1733822028) MEDHAT (test code = MEDHAT) Less than 10 IU/L. ?If low titer or ectopic is suspected, resubmit specimen in 48-72 hours. [facility] [id number] 19:40:46 Test Item Value Reference Range Interpretation Comments PREG SERUM (test code Negative = 9348753807) MEDHAT (test code = MEDHAT) Less than 10 IU/L. ?If low titer or ectopic is suspected, resubmit specimen in 48-72 hours. [facility], [id number] 19:40:46 Test Item Value Reference Range Interpretation Comments PREG SERUM (test code Negative = 1602311483) MEDHAT (test code = MEDHAT) Less than 10 IU/L. ?If low titer or ectopic is suspected, resubmit specimen in 48-72 hours. [facility], [id number] 19:40:46 Test Item Value Reference Range Interpretation Comments PREG SERUM (test code Negative = 6728481420) MEDHAT (test code = MEDHAT) Less than 10 IU/L. ?If low titer or ectopic is suspected, resubmit specimen in 48-72 hours. [facility] [id number] 19:40:46 Test Item Value Reference Range Interpretation Comments PREG SERUM (test code Negative = 9819309621) MEDHAT (test code = MEDHAT) Less than 10 IU/L. ?If low titer or ectopic is suspected, resubmit specimen in 48-72 hours. [facility], [id number] 19:40:46 Test Item Value Reference Range Interpretation Comments PREG SERUM (test code Negative = 8460676179) MEDHAT (test code = MEDHAT) Less than 10 IU/L. ?If low titer or ectopic is suspected, resubmit specimen in 48-72 hours. [facility], [id number] 19:40:46 Test Item Value Reference Range Interpretation Comments PREG SERUM (test code Negative = 4412275131) MEDHAT (test code = MEDHAT) Less than 10 IU/L. ?If low titer or ectopic is suspected, resubmit specimen in 48-72 hours. [facility], [id number] 19:40:46 Test Item Value Reference Range Interpretation Comments PREG SERUM (test code Negative = 0453565161) MEDHAT (test code = MEDHAT) Less than 10 IU/L. ?If low titer or ectopic is suspected, resubmit specimen in 48-72 hours. [facility] WestCB WITH [id number] 18:55:21 Test Item Value Reference Range Interpretation Comments WBC (test code = See_Comment H [Automated 9890-2) message] The system which generated this result transmit gómez reference range : 4.30 - 11.10 10*3/?L. The reference range was not used to interpret this result as normal/abnormal . RBC (test code = See_Comment [Automated 969-8) message] The system which generated this result [...] RDW-SD (test code = 43.0 fL 39-49.9 04514-5) RDW-CV (test code = 13.2 % 12-15.5 788-0) PLT (test code = See_Comment [Automated 457-3) message] The system which generated this result transmit gómez reference range : 166 - 358 10*3/ ?L. The reference range was not u sed to interpret th is result as normal/abnormal . MPV (test code = 10.8 fL 9.5-12.9 71762-3) NRBC/100 WBC (test See_Comment [Automat ed code = 1442894979) message] The system which generated this result transmit gómez reference range : 0.0 - 10.0 /100 WBCs. The reference range was not used to interpret this result as normal/abnormal . NRBC x10^3 (test code See_Comment [Auto mated = 7522021644) message] The system which generated this result transmit gómez reference range : 10*3/?L. The reference range was not used to interpret this result as normal/abnormal . GRAN MAT (NEUT) % 82.1 % (test code = 770-8) IMM GRAN % (test code 0.60 % = 6263167356) LYMPH % (test code = 12.4 % 736-9) MONO % (test code = 4.3 % 5905-5) EOS % (test code = 0.1 % 713-8) BASO % (test code = 0.5 % 706-2) GRAN MAT x10^3(ANC) 10.62 10*3/uL 1.88-7.09 H (test code = 4492524102) IMM GRAN x10^3 (test 0.08 10*3/uL 0-0.06 H code = 2477099751) LYMPH x10^3 (test code 1.60 10*3/uL 1.32-3.29 = 731-0) MONO x10^3 (test code 0.56 10*3/uL 0.33-0.92 = 742-7) EOS x10^3 (test code = 0.03-0.39 L 711-2) BASO x10^3 (test code 0.06 10*3/uL 0.01-0.07 = 704-7) Lab Interpretation Abnormal (test code = 27062-3) [facility]. METABOLIC PANEL (98358)2022-04-04 18:55:21 Test Item Value Reference Range Interpretation Comments NA (test code = 141 mmol/L 135-145 4345488301) K (test code = 4.5 mmol/L 3.5-5 9480304384) CL (test code = 103 mmol/L 98-108 3263366983) CO2 TOTAL (test code = 27 mmol/L 23-31 5519367452) AGAP (test code = 2-16 5971063861) BUN (test code = 14 mg/dL 7-23 8804455234) GLUCOSE (test code = 115 mg/dL 70-110 H 7651900340) CREATININE (test code = 0.62 mg/dL 0.5-1.04 4411641316) TOTAL BILI (test code = 0.7 mg/dL 0.1-1.8 7242006719) CALCIUM (test code = 9.5 mg/dL 8.6-10.6 1626516082) T PROTEIN (test code = 7.3 g/dL 6.3-8.2 6278008922) ALBUMIN (test code = 4.7 g/dL 3.5-5 5299865606) ALK PHOS (test code = 65 U/L 34-122 4048742674) ALTv (test code = 22 U/L 5-35 2-6) AST(SGOT) (test code = 39 U/L 13-40 6980096194) eGFR (test code = mL/min/1.73m2 3239282448) MEDHAT (test code = MEDHAT) Association of [...] tests). Lab Interpretation Abnormal (test code = 12810-2) [facility] 18:55:21 Test Item Value Reference Range Interpretation Comments LIPASE (test code = 7055672629) 70 U/L 0-220 Lab Interpretation (test code = Normal 05211-7) [facility] 18:55:21 Test Item Value Reference Range Interpretation Comments LIPASE (test code = 1650687651) 70 U/L 0-220 Lab Interpretation (test code = Normal 75605-3) [facility] WestCOM. METABOLIC PANEL (81765)2022-04-04 18:55:21 Test Item Value Reference Range Interpretation Comments NA (test code = 141 mmol/L 135-145 7393100853) K (test code = 4.5 mmol/L 3.5-5 0665322771) CL (test code = 103 mmol/L 98-108 9979658780) CO2 TOTAL (test code = 27 mmol/L 23-31 5779293962) AGAP (test code = 2-16 9500544143) BUN (test code = 14 mg/dL 7-23 3548226800) GLUCOSE (test code = 115 mg/dL 70-110 H 5621224099) CREATININE (test code = 0.62 mg/dL 0.5-1.04 5654004397) TOTAL BILI (test code = 0.7 mg/dL 0.1-1.9 4435345765) CALCIUM (test code = 9.5 mg/dL 8.6-10.6 9182611480) T PROTEIN (test code = 7.3 g/dL 6.3-8.2 8026146428) ALBUMIN (test code = 4.7 g/dL 3.5-5 0726028220) ALK PHOS (test code = 65 U/L 34-122 4197390881) ALTv (test code = 22 U/L 5-35 1742-6) AST(SGOT) (test code = 39 U/L 13-40 6452485476) eGFR (test code = mL/min/1.73m2 2111776012) MEDHAT (test code = MEDHAT) Association of [...] tests). Lab Interpretation Abnormal (test code = 65444-4) [facility] 18:55:21 Test Item Value Reference Range Interpretation Comments LIPASE (test code = 9616378605) 70 U/L 0-220 Lab Interpretation (test code = Normal 37768-0) [facility]2022-10-03 18:55:21 Test Item Value Reference Range Interpretation Comments LIPASE (test code = 1988803870) 70 U/L 0-220 Lab Interpretation (test code = Normal 96578-9) [facility]2022-10-03 18:55:21 Test Item Value Reference Range Interpretation Comments LIPASE (test code = 0619004622) 70 U/L 0-220 Lab Interpretation (test code = Normal 76627-5) [address]10-03 18:55:21 Test Item Value Reference Range Interpretation Comments LIPASE (test code = 5177695110) 70 U/L 0-220 Lab Interpretation (test code = Normal 83346-1) [address]10-03 18:55:21 Test Item Value Reference Range Interpretation Comments LIPASE (test code = 8840680774) 70 U/L 0-220 Lab Interpretation (test code = Normal 23746-4) [address]10-03 18:55:21 Test Item Value Reference Range Interpretation Comments LIPASE (test code = 3955073885) 70 U/L 0-220 Lab Interpretation (test code = Normal 00350-9) [address]10-03 18:55:21 Test Item Value Reference Range Interpretation Comments LIPASE (test code = 1544378814) 70 U/L 0-220 Lab Interpretation (test code = Normal 00222-8) [address]10-03 18:55:21 Test Item Value Reference Range Interpretation Comments LIPASE (test code = 3070966910) 70 U/L 0-220 Lab Interpretation (test code = Normal 31854-3) [address]10-03 18:55:21 Test Item Value Reference Range Interpretation Comments LIPASE (test code = 5895713398) 70 U/L 0-220 Lab Interpretation (test code = Normal 31740-8) [address]10-03 18:55:21 Test Item Value Reference Range Interpretation Comments LIPASE (test code = 9871883783) 70 U/L 0-220 Lab Interpretation (test code = Normal 64240-5) [address] 18:55:21 Test Item Value Reference Range Interpretation Comments LIPASE (test code = 1478270186) 70 U/L 0-220 Lab Interpretation (test code = Normal 74037-2) [place] [address] 18:55:21 Test Item Value Reference Range Interpretation Comments LIPASE (test code = 9044600761) 70 U/L 0-220 Lab Interpretation (test code = Normal 13450-2) [address]03 18:55:21 Test Item Value Reference Range Interpretation Comments LIPASE (test code = 0668628641) 70 U/L 0-220 Lab Interpretation (test code = Normal 88443-5) [address]03 18:55:21 Test Item Value Reference Range Interpretation Comments LIPASE (test code = 3969966893) 70 U/L 0-220 Lab Interpretation (test code = Normal 60915-9) [address]-03 18:55:21 Test Item Value Reference Range Interpretation Comments LIPASE (test code = 5969868148) 70 U/L 0-220 Lab Interpretation (test code = Normal 60473-0) [address]03 18:55:21 Test Item Value Reference Range Interpretation Comments LIPASE (test code = 3018560462) 70 U/L 0-220 Lab Interpretation (test code = Normal 17568-6) [address]03 18:55:21 Test Item Value Reference Range Interpretation Comments LIPASE (test code = 5497919033) 70 U/L 0-220 Lab Interpretation (test code = Normal 71649-5) [address]03 18:55:21 Test Item Value Reference Range Interpretation Comments LIPASE (test code = 9785305189) 70 U/L 0-220 Lab Interpretation (test code = Normal 11666-7) [address]03 18:55:21 Test Item Value Reference Range Interpretation Comments LIPASE (test code = 8012708650) 70 U/L 0-220 Lab Interpretation (test code = Normal 31454-7) [address]03 18:55:21 Test Item Value Reference Range Interpretation Comments LIPASE (test code = 5629815983) 70 U/L 0-220 Lab Interpretation (test code = Normal 53485-5) [address]03 18:55:21 Test Item Value Reference Range Interpretation Comments LIPASE (test code = 8951413132) 70 U/L 0-220 Lab Interpretation (test code = Normal 61017-1) [facility] 18[facility]55:21 Test Item Value Reference Range Interpretation Comments LIPASE (test code = 9818881647) 70 U/L 0-220 Lab Interpretation (test code = Normal 34830-2) [facility]COMP. METABOLIC PANEL (62388)2022-04-01 04:58:46 Test Item Value Reference Range Interpretation Comments NA (test code = 139 mmol/L 135-145 4284541870) K (test code = 5.0 mmol/L 3.5-5 1614847366) CL (test code = 102 mmol/L 98-108 4440669912) CO2 TOTAL (test code 27 mmol/L 23-31 = 1556063955) AGAP (test code = 2-16 2700092788) BUN (test code = 13 mg/dL 7-23 7680047513) GLUCOSE (test code = 104 mg/dL 70-110 4453552748) CREATININE (test code 0.69 mg/dL 0.5-1.04 = 5976085104) TOTAL BILI (test code 0.5 mg/dL 0.1-1.1 = 7666133370) CALCIUM (test code = 9.6 mg/dL 8.6-10.6 7055920554) T PROTEIN (test code 7.2 g/dL 6.3-8.2 = 7462949156) ALBUMIN (test code = 4.6 g/dL 3.5-5 4261733899) ALK PHOS (test code = 60 U/L 34-122 2353221844) ALTv (test code = 15 U/L 5-35 1742-6) AST(SGOT) (test code 26 U/L 13-40 = 7274444449) eGFR (test code = mL/min/1.73m2 4246356373) MEDHAT (test code = MEDHAT) Association of [...] abnormalities in imaging tests). [facility] 04:58:25 Test Item Value Reference Range Interpretation Comments LIPASE (test code = 6215995407) 71 U/L 0-220 Lab Interpretation (test code = Normal 54356-4) [facility] WITH [id number] 04:46:42 Test Item Value Reference Range Interpretation Comments WBC (test code = See_Comment [Automated message] 6690-2) The system [employer] generated this result transmitted ref erence range: 4.30 - 1 1.10 10*3/?L. The re ference range was not u sed to interpret this result as normal/abnor mal. RBC (test code = See_Comment [Automated message] 789-8) The system [employer] generated this result transmitted ref erence range: [...] RDW-SD (test code 42.5 fL 39-49.9 = 89601-7) RDW-CV (test code 13.2 % 12-15.5 = 788-0) PLT (test code = See_Comment [Automated message] 777-3) The system whic h generated this result transmitted ref erence range: 166 - 35 8 10*3/?L. The re ference range was not u sed to interpret this result as normal/abnor mal. MPV (test code = 10.4 fL 9.5-12.9 10736-3) NRBC/100 WBC (test See_Comment [Automat ed message] code = 1261405514) The syste m which generated this result transmitted ref erence range: 0.0 - 10 .0 /100 WBCs. The refer ence range was not u sed to interpret this result as normal/abnor mal. NRBC x10^3 (test See_Comment [Automated message] code = 6167800845) The syste m which generated this result transmitted ref erence range: 10*3/?L. The reference range was not used to interpr et this result as normal/abnormal . GRAN MAT (NEUT) % 69.5 % (test code = 770-8) IMM GRAN % (test 0.40 % code = 5089766900) LYMPH % (test code 23.3 % = 736-9) MONO % (test code 5.3 % = 5905-5) EOS % (test code = 0.7 % 713-8) BASO % (test code 0.8 % = 706-2) GRAN MAT 5.73 10*3/uL 1.88-7.09 x10^3(ANC) (test code = 6915157740) IMM GRAN x10^3 0.03 10*3/uL 0-0.06 (test code = 2204749423) LYMPH x10^3 (test 1.92 10*3/uL 1.32-3.29 code = 731-0) MONO x10^3 (test 0.44 10*3/uL 0.33-0.92 code = 742-7) EOS x10^3 (test 0.06 10*3/uL 0.03-0.39 code = 711-2) BASO x10^3 (test 0.07 10*3/uL 0.01-0.07 code = 704-7) [facility] [id number] 04:37:00 Test Item Value Reference Range Interpretation Comments POCT PREG (test code = 1605) negative Lab Interpretation (test code = Normal 84565-6) [facility] [id number] 04:37:00 Test Item Value Reference Range Interpretation Comments POCT PREG (test code = 1605) negative Lab Interpretation (test code = Normal 24997-1) [facility], [id number] 14:05:00 Test Item Value Reference Range Interpretation Comments Coronavirus NAAT, COVD19 SARS results, (test code = including Patient [id number]) Name, or MRN, were Coronavirus NAAT, COVD19 ical-devices/emergenc (test code = u-gsq-vhnyfuyaipoelb. BUAZQDQ7PGOX1.1) SARS-CoV-2 NAAT Result: Positive by RT-PCR A (test code = SARS-CoV-2 NAAT Result:) COVID-19 Status: AsymptomaticHCG, Urine Qual (LAB)2021-07-09 14:05:00 Test Item Value Reference Range Interpretation Comments HCG, Urine, Qual (test code = HCGU) Negative Negative Drug Screen,[id number] 14:05:00 Test Item Value Reference Range Interpretation [...] Negative code = UPROP) UA, Urinalysis w [id number] 14:05:00 Test Item Value Reference Range Interpretation Comments Color,Urine (test code = Yellow Yellow UCOL) Clarity,Urine (test code = Clear Clear UCLAR) Ph, Urine (test code = UPH) 8.5 5.0-8.0 H Specific [place],Urine 1.020 1.005-1.030 N (test code = USG) [...] Seen A UBACT) Complete Blood Count Auto [id number] 13:20:00 Test Item Value Reference Range Interpretation [...] code = NRBCP) 0 % Comprehensive Metabolic [id number] 13:20:00 Test Item Value Reference Range Interpretation [...] 72 U/L 46-116 N = ALP) Ethanol [id number] 13:20:00 Test Item Value Reference Range Interpretation [...] = HCGU) Negative Negative UA, Urinalysis Rflx Cult/[id number] 00:20:00 Test Item Value Reference Range Interpretation Comments Color,Urine (test code = Yellow Yellow UCOL) Clarity,Urine (test code = Clear Clear UCLAR) PH,Urine (test code = 7.5 5.5-8.5 UPH.XX) Specific [place],Urine 1.020 1.005-1.030 N (test code = USG) [...] cells/uL Negative (test code = ULEU) Urine [id number] 00:20:00 Test Item Value Reference Range Interpretation Comments RBC,Urine (test code = URBC.XX) 0-5 /HPF None Seen WBC,Urine (test code = UWBC.XX) 6-10 /HPF None Seen A Squamous Epithelial Cell,Urine 74-200 /HPF None Seen A (test code = USQEPI.XX) Bacteria,Urine (test code = Moderate /HPF None Seen A UBACT) Drug Screen,[id number] 00:20:00 Test Item Value Reference Range Interpretation [...] code = UPROP) Complete Blood Count Auto [id number] 00:09:00 Test Item Value Reference Range Interpretation [...] code = NRBCP) 0 % Comprehensive Metabolic [id number] 00:09:00 Test Item Value Reference Range Interpretation [...] 83 U/L 46-116 N = ALP) Ethanol [id number] 00:09:00 Test Item Value Reference Range Interpretation Comments Ethanol (test code < 3 mg/dL The pharm acological = ETOH) response to blo od alcohol levels mayvary from individual to i ndividual. The fatal ezio ntrationhas been reported t o be >400mg/dL. Coronavirus PCR, COVID19 [id number] 00:08:00 Test Item Value Reference Range Interpretation Comments Coronavirus PCR, For use under Emergency COVID19 Rapid (test Use Authorization (EUA) code = SARSCOV2) only. Coronavirus PCR, Reference Range: COVID19 Rapid (test Negative code = XVDTRZK00.1) SARS-CoV-2 PCR Result: Negative by RT-PCR (test code = SARS-CoV-2 PCR Result:) COVID-19 Status: AsymptomaticCARBAMAZEPHINE (TEGRETOL)2020-09-26 08:42:00 Test Item Value Reference Range Interpretation Comments CARBAMAZPN (test code = 98A) 19.3 ug/mL 4.0-12.0 HH CARBAMAZEPHINE (TEGRETOL)2020-09-26 05:04:00 Test Item Value Reference Range Interpretation Comments CARBAMAZPN (test code = 98A) 20.1 ug/mL 4.0-12.0 HH URINALYSIS WITH [id number] 02:45:00 Test Item Value Reference Range Interpretation [...] code = USPERM) /HPF NONE DRUGS OF [id number] 02:43:00 Test Item Value Reference Range Interpretation [...] the FDA and the [employer] ([employer]) are more stringent than those required for this test. Therefore, the result should be interpreted with caution and close attention to other clinical and epidemiological data PRO TIME AND [id number] 00:51:00 Test Item Value Reference Range Interpretation [...] Heparin. Order Code is ANTI-XA COMPREHENSIVE METABOLIC [id number] 00:47:00 Test Item Value Reference Range Interpretation [...] . GFR 154 See_Comment [Automated SAMMARINESE (test mL/min/1.73m\\S\\2 message] The code = GFRAA) [...] to interpret this result as normal/abnormal . [id number] 00:47:00 Test Item Value Reference Range Interpretation Comments ACETAMINPH (test code = 94M) 3.6 ug/mL 10.0-30.0 L CARDIAC [id number] 00:47:00 Test Item Value Reference Range Interpretation [...] interpret th is result as normal/abnormal . [id number] 00:42:00 Test Item Value Reference Range Interpretation Comments SALICYLATE (test code = 94B) <1.7 mg/dL 2.8-20.0 L SERUM [id number] 00:38:00 Test Item Value Reference Range Interpretation [...]
[2023-05-03] MEDS ORDERED: KETOROLAC 30 MG/ML INJ ONE (12:51)
[2023-05-03] MEDS ORDERED: ACETAMINOPHEN 500 MG TAB ONE (12:59)
[2023-05-03] MEDS ORDERED: IBUPROFEN 200 MG TAB PO ONE (12:59)
[2023-05-03 13:00] LABS: Absolute Lymphocytes (CBC) 1.8 K/uL (0.7-4.9); Hematocrit 46.6 % (36.0-45.0); Lymphocytes % 26.5 % (15.3-44.8); MCV 87.2 fL (80-100); MPV 8.3 fL (7.6-11.3); Platelets 344 thou/uL (152-406); RBC Red Blood Cell Count 5.34 M/uL (3.86-4.86)
[2023-05-03 13:10] LABS: Potassium 3.9 mEq/L (3.5-5.1)
--- NOTE | 2023-05-03 15:14 | RAD REPORT ---
EXAM DESCRIPTION: US - Transvaginal Study Probe - 05/03/2023 2:13 pm CLINICAL HISTORY: ABD PAIN COMPARISON: Transvaginal Study Probe dated 04/25/2023 TECHNIQUE: Sonographic grayscale and color flow images of the pelvis were obtained. Patient experi enced mild bleeding/spotting following the exam. FINDINGS: The uterus is normal in size, shape and echotexture. The uterus measures 4.9 cm in length. The endometrial stripe is ill-defined and could not be accurately measured, however without suspiciou s endometrial lesions. Both ovaries are normal in size, shape and echotexture. The right ovary measures 3.7x1.4x1.9 cm. Th e left ovary measures 3.9x2.6x2.9 cm. 3.3 cm anechoic thin walled left ovarian dominant cyst or folli shauna. No adnexal masses. Normal Doppler blood flow was demonstrated to both ovaries. No significant pelvic ascites. IMPRESSION: Satisfactory IUD positioning. Dominant left ovarian cyst/polyp.
--- NOTE | 2023-05-03 15:20 | ER ---
Nurse's Notes [facility] Name: Vanda Pompa Age: 22 yrs Sex: Female : 2000 Arrival Date: 05/03/2023 Time: 11:51 Bed 12 Private MD: Diagnosis: Other ovarian cysts Presentation: 05/03 11:53 Chief complaint: EMS states: "toned out for pevic/LLQ abdominal pain. Pt states she has mb9 a ovarian cyst and current UTI. Taking unknown pain medication that isn't working.". Coronavirus screen: Vaccine status: Patient reports being unvaccinated. Ebola Screen: No symptoms or risks identified at this time. Initial Sepsis Screen: Does the patient meet any 2 criteria? No. Patient's initial sepsis screen is negative. Does the patient have a suspected source of infection? No. Patient's initial sepsis screen is negative. Risk Assessment: Do you want to hurt yourself or someone else? Patient reports no desire to harm self or others. Onset of symptoms was May 03, 2023. 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 - Social history:: Smoking status: Reported history of juuling and/or vaping. Screenin:25 [facility] ED Fall Risk Assessment (Adult) History of falling in the last 3 months, ap3 including since admission No falls in past 3 months (0 pts). Abuse screen: Denies threats or abuse. Nutritional screening: No deficits noted. Tuberculosis screening: No symptoms or risk factors identified. Assessment: 12:24 General: Appears in no apparent distress. Behavior is calm, cooperative, appropriate ap3 for age. Pain: Complains of pain in abdomen. Neuro: Level of Consciousness is awake, alert, obeys commands, Oriented to person, place, time, situation. Cardiovascular: Patient's skin is warm and dry. Respiratory: Airway is patent Respiratory effort is even, unlabored, Respiratory pattern is regular, symmetrical. GI: Reports lower abdominal pain. Vital Signs: 11:53 BP 132 / 91; Pulse 92; Resp 16; Temp 97.7(O); Pulse Ox 100% on R/A; Weight 56 kg; mb9 Height 5 ft. 3 in. ; 11:53 Body Mass Index 21.87 (56.00 kg, 160.02 cm) 9 ED Course: 11:52 Patient arrived in ED. ap3 11:52 Nanci Alvarado PA-C is PHCP. sb4 11:52 Henri Moreno MD is Attending Physician. sb4 11:52 Arm band placed on. mb9 11:54 Triage completed. mb9 12:06 Akiko Padilla, RN is Primary Nurse. ap3 12:25 Patient has correct armband on for positive identification. Call light in reach. Side ap3 rails up X 1. Pulse ox on. NIBP on. 14:15 US Transvaginal Study (Probe) In Process Unspecified. EDMS 15:32 No provider procedures requiring assistance completed. Patient did not have IV access ap3 during this emergency room visit. 15:33 Provided Education on: discharge instructions. ap3 Administered Medications: 12:42 Not Given (Physician Discretion): [id number] mg IVP once sb4 12:48 Drug: Acetaminophen PO 1000 mg PO once Route: PO; ap3 15:33 Follow up: Response: No adverse reaction ap3 12:48 Drug: Ibuprofen PO 600 mg PO once Route: PO; ap3 15:33 Follow up: Response: No adverse reaction ap3 Medication: 12:25 VIS not applicable for this client. ap3 Outcome: 15:20 Discharge ordered by . sb4 15:32 Discharged to home ambulatory, ap3 15:32 Condition: good 15:32 Discharge instructions given to patient, Instructed on discharge instructions, follow up and referral plans. Demonstrated understanding of instructions, follow-up care, 15:33 Patient left the ED. ap3 Signatures: Dispatcher [employer] EDMS Akiko Padilla, OLGA RN ap3 Nanci Alvarado PA-C PA-C sb4 Breneman, Mohini, RN RN mb9
--- NOTE | 2023-05-03 15:20 | EDPHYS ---
Physician Documentation [facility] Name: Vanda Pompa Age: 22 yrs Sex: Female : 2000 Arrival Date: 05/03/2023 Time: 11:51 Bed 12 Private MD: ED Physician Henri Moreno HPI: 05/03 12:17 This 22 yrs old Female presents to ER via EMS with complaints of Abdominal Pain, Flank sb4 Pain. 12:17 The patient presents with abdominal pain in the left lower quadrant. Onset: The sb4 symptoms/episode began/occurred 3 month(s) ago. The symptoms do not radiate. Associated signs and symptoms: Pertinent positives: vaginal bleeding. Modifying factors: The symptoms are alleviated by remaining still. Severity of pain: At its worst the pain was a 10 / 10 in the emergency department the pain is a 8 / 10. The patient has experienced similar episodes in the past, multiple times. The patient has been recently seen at the [facility] Emergency Department, this week, for similar complaints labs were performed, CT scan was performed. 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 - Social history:: Smoking status: Reported history of juuling and/or vaping. ROS: 12:17 Constitutional: Negative for fever, chills, and weight loss, sb4 12:17 Abdomen/GI: Positive for abdominal pain, 12:17 : Positive for menstrual abnormality, 12:17 All other systems are negative, Exam: 12:17 Constitutional: This is a well developed, well nourished patient who is awake, alert, sb4 and in no acute distress. Head/Face: Normocephalic, atraumatic. Eyes: Extra-ocular motions intact. Periorbital areas with no swelling, redness, or edema. ENT: Mucous membranes moist. Cardiovascular: Regular rate and rhythm with a normal S1 and S2. Respiratory: Lungs have equal breath sounds bilaterally, clear to auscultation and percussion. No rales, rhonchi or wheezes noted. No increased work of breathing, no retractions or nasal flaring. Abdomen/GI: Soft, non-tender, no distension. Skin: Warm, dry with normal turgor. Normal color with no rashes, no lesions, and no evidence of cellulitis. MS/ Extremity: Pulses equal, no cyanosis. Neurovascular intact. Full, normal range of motion. Neuro: Awake and alert, GCS 15, oriented to person, place, time, and situation. Motor strength 5/5 in all extremities. Sensory grossly intact. Vital Signs: 11:53 BP 132 / 91; Pulse 92; Resp 16; Temp 97.7(O); Pulse Ox 100% on R/A; Weight 56 kg; mb9 Height 5 ft. 3 in. ; 11:53 Body Mass Index 21.87 (56.00 kg, 160.02 cm) 9 MDM: 11:54 Patient medically screened. sb4 12:17 Differential diagnosis: Dysmenorrhea, Endometriosis, non-specific abd pain, ovarian sb4 cyst. 15:19 Data reviewed: vital signs, nurses notes, lab test result(s), radiologic studies, and sb4 as a result, I will discharge patient. Consideration of Admission/Observation Escalation of care including admission/observation considered. Counseling: I had a detailed discussion with the patient and/or guardian regarding the historical points, exam findings, and any diagnostic results supporting the discharge/admit diagnosis, lab results, radiology results, the need for outpatient follow up, an OB/Gyne specialist, to return to the emergency department if symptoms worsen or persist or if there are any questions or concerns that arise at home. 05/03 12:51 Order name: Basic Metabolic Panel; Complete Time: 13:14 EDMS 05/03 12:51 Order name: CBC with Automated Diff; Complete Time: 13:07 EDMS 05/03 12:17 Order name: US Transvaginal Study (Probe); Complete Time: 15:15 sb4 05/03 12:17 Order name: Labs collected and sent; Complete Time: 12:43 sb4 Administered Medications: 12:42 Not Given (Physician Discretion): [id number] mg IVP once sb4 12:48 Drug: Acetaminophen PO 1000 mg PO once Route: PO; ap3 15:33 Follow up: Response: No adverse reaction ap3 12:48 Drug: Ibuprofen PO 600 mg PO once Route: PO; ap3 15:33 Follow up: Response: No adverse reaction ap3 Disposition Summary: 05/03/23 15:20 Discharge Ordered Notes: Location: Home sb4 Problem: an ongoing problem sb4 Symptoms: are unchanged sb4 Condition: Stable sb4 Diagnosis - Other ovarian cysts sb4 Followup: sb4 - With: Emergency Department - When: As needed - Reason: Trouble breathing, Worsening of condition Discharge Instructions: - Discharge Summary Sheet sb4 - Ovarian Cyst, [id number] sb4 Forms: - Medication Reconciliation Form sb4 - Thank You Letter sb4 - Antibiotic Education sb4 - Prescription Opioid Use sb4 - Patient Portal Instructions sb4 - Leadership Thank You Letter sb4 Addendum: 05/08/2023 10:04 I was immediately available for consultation during this patient's visit. I did not e c2 personally see the patient or guide the patient's care.. Signatures: Dispatcher [employer] Akiko Zepeda RN RN ap3 Nanci Alvarado PADominic PADominic sb4 Purnima Goodson RN RN mb9 Henri Moreno MD MD ec2 Corrections: (The following items were deleted from the chart) 05/03 12:43 12:17 IV Saline Lock ordered. sb4 ap3
[2023-05-03 15:42] VITALS: BP 132/91; TEMP 97.7; O2SAT 100
== END 2023-05-03 15:33 | disposition home or self-care (01) ==
LOC: ER 11:51
DX: N83.299 Other ovarian cyst, unspecified side (principal); F31.9 Bipolar disorder, unspecified
CPT/HCPCS: 36415; 76830; 80048; 85025; 99284

== ENCOUNTER → 2023-07-11 | Emergency (ER) | payer OTHER ==
--- OUTSIDE RECORDS SUMMARY | 2023-07-11 15:08 | XMS REPORT | Continuity of Care Document ---
Author Name Unknown Address [address] [place] [address] [facility] thconnect Address [address] [place] [address] Care Team Providers Care Sole Dyer Name Role Phone DR ALAINA PARRY Attending Clinician Unavailable DR ALAINA PARRY Admitting Clinician Unavailable Payers Payer Name Policy Type Policy Number Effective Date Expirati on Date Source MEDICAID Traditional P [id number] [facility] MEDICAID STAR [id number] 2021 00:00:00 Allergies, Adverse Reactions, Alerts Allergy Name Allergy Type Status Severity Reaction(s) Onset Date Inactive Date Treating Clinician Comments Source No Known Drug Allergie s DA Active U 07-09 00:00: 00 [facility] No Known Drug Allergie s DA Active U 2020-07 00:00: 00 [facility] Unable to Assess DA Active U 2020-07 00:00: 00 [facility] No Known Drug Allergie s DA Active [facility] Vital Signs Vital Name Observation Time Observation Value Comments S ource Height 2020-09-25 23:56:00 165.1 CM Weight 2020-09-25 23:56:00 2.69 KG Encounters Start Date/Time End Date/Time Encounter Type Admission Type Attending Clinicians Care Facility Care Department Encounter ID Source 2022-09-19 17:53:01 Outpatient [facility] [id number] [facility] 2022-09-19 17:49:01 Outpatient [facility] [id number] [facility] 2021-11-02 11:00:33 Outpatient [facility] [id number] [facility] 2021-07-09 12:46:00 Inpatient [facility] [id number] [facility] 2021-05-25 23:19:00 Inpatient [facility] [id number] [facility] 2021-07-09 12:46:00 2021-07-09 12:46:00 Emergency [facility] [id number] [facility] 2021-05-25 23:19:00 2021-05-25 23:19:00 Emergency [facility] [id number] [facility] 2020-09-25 23:49:00 2020-09-26 10:04:00 Emergency ALAINA MOTA [facility] [id number] [facility] Results Test Description Test Time Test Comments Results Result Co mments Source COVID-19 Status: AsymptomaticHCG, Urine Qual (LAB)2021-07-09 14:05:00* Test Item Value Reference Range Interpretation Comme nts HCG, Urine, Qual (test code = HCGU) Negative Negative Drug Screen,[id number] 14:05:00* Test Item Value Reference Range Interpretation Comme nts PCP Phencyclidine Screen,Uri ne (test code = PCPU) Negative Negative Amphetamine Screen,Urine (te st code = AMPU) Negative Negative Methadone Screen,Urine (test code = METHU) Negative Negative Opiate Screen,Urine (test co de = UOPIS) Negative Negative Barbituates Screen,Urine (te st code = BARBU) Negative Negative Benzodiazepines Screen,Urine (test code = UBENZS) Negative Negative Cocaine Screen,Urine (test c ode = UCOCS) Negative Negative Cannabinoid Screen,Urine (te st code = UTHCS) Negative Negative Propoxyphene Screen, Urine ( test code = UPROP) Negative Negative UA, Urinalysis w [id number] 14:05:00* Test Item Value Reference Range Interpretation Comme nts Color,Urine (test code = UCOL) Yellow Yellow Clarity,Urine (test code = UCLAR) Clear Clear Ph, Urine (test code = UPH) 8.5 5.0-8.0 H Specific Big Arm,Urine (test code = USG) 1.020 1.005-1.030 N Blood,Urine (test code = UBLD) Negative cells/uL Negative Protein,Urine (test code = UPRO) 100 mg/dL Negative A Glucose,Urine (UA) (test code = UGLU) Negative mg/dL Negative Ketones,Urine (test code = UKET) Trace mg/dL Negative A Nitrate,Urine (test code = UNIT) Negative Negative Bilirubin,Urine (test code = UBIL) Negative mg/dL Negative Urobilinogen,Urine (test code = UURO) 0.2 mg/dL Negative Leukocyte Esterase,Urine (test code = ULEU) Negative cells/uL Negative RBC,Urine (test code = URBC.XX) None Seen /HPF None Seen WBC,Urine (test code = UWBC.XX) 0-2 /HPF None Seen Squamous Epithelial Cell,Urine (test code = USQEPI.XX) 0-2 /HPF None Seen Bacteria,Urine (test code = UBACT) Few /HPF None Seen A Complete Blood Count Auto [id number] 13:20:00* Test Item Value Reference Range Interpretation Comme nts White Blood Count (test code = WBCT) 9.9 x10 3/uL 4.4-10.5 N Red Blood Count (test code = RBC) 4.48 x10 6/uL 3.75-5.20 N Hemoglobin (test code = HGBT) 13.0 g/dL 12.2-14.8 N Hematocrit (test code = HCTT) 41.6 % 36.5-44.4 N Mean Corpuscular Volume (ofe t code = MCV) 92.90 fL 80.00-100.00 N Mean Corpuscular Hemoglobin (test code = MCH) 29.0 pg 27.0-32.5 N Mean Corpuscular HGB Conc (test code = MCHC) 31.30 g/dL 32.00-37.50 L RDW Coefficient of Variation (test code = RDWCV) 12.2 % 11.5-14.5 N Platelet Count (test code = PLTT) 389.0 x10 3/uL 140.0-440.0 N Mean Platelet Volume (test code = MPV) 10.4 fL Immature Granulocytes % (Aut o) (test code = IMMGRAN%) 0.2 % 0.0-5.0 N Neutrophils % (Auto) (test code = NE%) 69.6 % 36.0-70.0 N Lymphocytes % (Auto) (test code = LY%) 24.2 % 12.0-44.0 N Monocytes % (Auto) (test cod e = MO%) 5.3 % 0.0-11.0 N Eosinophils % (Auto) (test code = EO%) 0.0 % 0.0-7.0 N Basophils % (Auto) (test cod e = BA%) 0.7 % 0.0-2.0 N Immature Granulocytes # (Aut o) (test code = IMMGRAN#) 0.02 x10 3/uL Neutrophils # (Auto) (test code = NE#) 6.9 x10 3/uL 1.6-7.4 N Lymphocytes # (Auto) (test code = LY#) 2.39 x10 3/uL 0.50-4.60 N Monocytes # (Auto) (test cod e = MO#) 0.52 x10 3/uL 0.00-1.20 N Eosinophils # (Auto) (test code = EO#) 0.00 x10 3/uL 0.00-0.74 N Basophils # (Auto) (test cod e = BA#) 0.07 x10 3/uL 0.00-0.21 N nRBC Abs (test code = NRBCA) 0 nRBC Pct (test code = NRBCP) 0 % Comprehensive Metabolic [id number] 13:20:00* Test Item Value Reference Range Interpretation Comme nts SODIUM (test code = NA) 141.0 mmol/L 136.0-145.0 N Potassium,K (test code = K) 4.3 mmol/L 3.0-5.1 N Chloride (test code = CL) 107 mmol/L 98-107 N Carbon Dioxide (test code = CO2) 28 mmol/L 20-31 N Anion Gap (test code = GAP) 6 mmol/L 5-15 N Blood Urea Nitrogen (test co de = BUN) 14 mg/dL 9-23 N Creatinine (test code = CREATT) 0.67 mg/dL 0.55-1.02 N Creatinine Clr Calc Pharmacy (test code = CRCLPHA) 101.54 mL/min Estimated GFR ( Ameri ca (test code = EGFRAA) > 60 mL/min/1.73m2 Estimated GFR (Non Afr Ameri ca (test code = EGFRNAA) > 60 mL/min/1.73m2 BUN/Creatinine Ratio (test c ode = BCRATIO) 21 ratio 10-20 H Glucose (test code = GLU) 80 mg/dL 74-106 N Osmolality,Calculated (test code = OSMOC) 291.0 Calcium (test code = CA) 9.8 mg/dL 8.3-10.6 N Bilirubin,Total (test code = BILIT) 0.5 mg/dL 0.2-1.1 N Aspartate Amino Transferase (test code = AST) 30 U/L 0-34 N Alanine Aminotransferase (te st code = ALT) 19 U/L 10-49 N Total Protein (test code = TP) 6.8 g/dL 5.7-8.2 N Albumin Level (test code = ALB) 4.5 g/dL 3.2-4.8 N Globulin (test code = GLOB) 2.3 mg/dL 2.3-3.5 N Albumin/Globulin Ratio (test code = AGRATIO) 2.0 ratio 0.8-2.0 N Alkaline Phosphatase (test c ode = ALP) 72 U/L 46-116 N Ethanol [id number] 13:20:00* Test Item Value Reference Range Interpretation Comme nts Ethanol (test code = ETOH) < 3 mg/dL The pharmacologi torito response to blood alcohol levels mayvary from individual to individual. The fatal concentrationhas been reported to be >400mg/dL. HCG, Urine Qual (LAB)2021-05-26 00:20:00* Test Item Value Reference Range Interpretation Comme nts HCG, Urine, Qual (test code = HCGU) Negative Negative UA, Urinalysis Rflx Cult/[id number] 00:20:00* Test Item Value Reference Range Interpretation Comme nts Color,Urine (test code = UCOL) Yellow Yellow Clarity,Urine (test code = UCLAR) Clear Clear PH,Urine (test code = UPH.XX) 7.5 5.5-8.5 Specific Big Arm,Urine (test code = USG) 1.020 1.005-1.030 N Blood,Urine (test code = UBLD) Negative cells/uL Negative Protein,Urine (test code = UPRO) Negative mg/dL Negative Glucose,Urine (UA) (test code = UGLU) Negative mg/dL Negative Ketones,Urine (test code = UKET) Negative mg/dL Negative Nitrate,Urine (test code = UNIT) Negative Negative Bilirubin,Urine (test code = UBIL) Negative mg/dL Negative Urobilinogen,Urine (test code = UURO) 0.2 mg/dL Negative Leukocyte Esterase,Urine (test code = ULEU) Trace cells/uL Negative Urine [id number] 00:20:00* Test Item Value Reference Range Interpretation Comme nts RBC,Urine (test code = URBC.XX) 0-5 /HPF None Seen WBC,Urine (test code = UWBC.XX) 6-10 /HPF None Seen A Squamous Epithelial Cell,Uri ne (test code = USQEPI.XX) 74-200 /HPF None Seen A Bacteria,Urine (test code = UBACT) Moderate /HPF None Seen A Drug Screen,[id number] 00:20:00* Test Item Value Reference Range Interpretation Comme nts PCP Phencyclidine Screen,Uri ne (test code = PCPU) Negative Negative Amphetamine Screen,Urine (te st code = AMPU) Negative Negative Methadone Screen,Urine (test code = METHU) Negative Negative Opiate Screen,Urine (test co de = UOPIS) Negative Negative Barbituates Screen,Urine (te st code = BARBU) Negative Negative Benzodiazepines Screen,Urine (test code = UBENZS) Negative Negative Cocaine Screen,Urine (test c ode = UCOCS) Negative Negative Cannabinoid Screen,Urine (te st code = UTHCS) Negative Negative Propoxyphene Screen, Urine ( test code = UPROP) Negative Negative Complete Blood Count Auto [id number] 00:09:00* Test Item Value Reference Range Interpretation Comme nts White Blood Count (test code = WBCT) 9.7 x10 3/uL 4.4-10.5 N Red Blood Count (test code = RBC) 4.84 x10 6/uL 3.75-5.20 N Hemoglobin (test code = HGBT) 14.1 g/dL 12.2-14.8 N Hematocrit (test code = HCTT) 45.4 % 36.5-44.4 H Mean Corpuscular Volume (ofe t code = MCV) 93.80 fL 80.00-100.00 N Mean Corpuscular Hemoglobin (test code = MCH) 29.1 pg 27.0-32.5 N Mean Corpuscular HGB Conc (test code = MCHC) 31.10 g/dL 32.00-37.50 L RDW Coefficient of Variation (test code = RDWCV) 12.6 % 11.5-14.5 N Platelet Count (test code = PLTT) 412.0 x10 3/uL 140.0-440.0 N Mean Platelet Volume (test code = MPV) 10.2 fL Immature Granulocytes % (Aut o) (test code = IMMGRAN%) 0.1 % 0.0-5.0 N Neutrophils % (Auto) (test code = NE%) 64.7 % 36.0-70.0 N Lymphocytes % (Auto) (test code = LY%) 28.0 % 12.0-44.0 N Monocytes % (Auto) (test cod e = MO%) 6.0 % 0.0-11.0 N Eosinophils % (Auto) (test code = EO%) 0.2 % 0.0-7.0 N Basophils % (Auto) (test cod e = BA%) 1.0 % 0.0-2.0 N Immature Granulocytes # (Aut o) (test code = IMMGRAN#) 0.01 x10 3/uL Neutrophils # (Auto) (test code = NE#) 6.2 x10 3/uL 1.6-7.4 N Lymphocytes # (Auto) (test code = LY#) 2.70 x10 3/uL 0.50-4.60 N Monocytes # (Auto) (test cod e = MO#) 0.58 x10 3/uL 0.00-1.20 N Eosinophils # (Auto) (test code = EO#) 0.02 x10 3/uL 0.00-0.74 N Basophils # (Auto) (test cod e = BA#) 0.10 x10 3/uL 0.00-0.21 N nRBC Abs (test code = NRBCA) 0 nRBC Pct (test code = NRBCP) 0 % Comprehensive Metabolic [id number] 00:09:00* Test Item Value Reference Range Interpretation Comme nts SODIUM (test code = NA) 141.0 mmol/L 136.0-145.0 N Potassium,K (test code = K) 4.3 mmol/L 3.0-5.1 N Chloride (test code = CL) 105 mmol/L 98-107 N Carbon Dioxide (test code = CO2) 31 mmol/L 20-31 N Anion Gap (test code = GAP) 5 mmol/L 5-15 N Blood Urea Nitrogen (test co de = BUN) 12 mg/dL 9-23 N Creatinine (test code = CREATT) 0.73 mg/dL 0.55-1.02 N Creatinine Clr Calc Pharmacy (test code = CRCLPHA) 93.20 mL/min Estimated GFR ( Ameri ca (test code = EGFRAA) > 60 mL/min/1.73m2 Estimated GFR (Non Afr Ameri ca (test code = EGFRNAA) > 60 mL/min/1.73m2 BUN/Creatinine Ratio (test c ode = BCRATIO) 16 ratio 10-20 N Glucose (test code = GLU) 90 mg/dL 74-106 N Osmolality,Calculated (test code = OSMOC) 291.2 Calcium (test code = CA) 10.8 mg/dL 8.3-10.6 H Bilirubin,Total (test code = BILIT) 0.4 mg/dL 0.2-1.1 N Aspartate Amino Transferase (test code = AST) 18 U/L 0-34 N Alanine Aminotransferase (te st code = ALT) 21 U/L 10-49 N Total Protein (test code = TP) 7.4 g/dL 5.7-8.2 N Albumin Level (test code = ALB) 5.1 g/dL 3.2-4.8 H Globulin (test code = GLOB) 2.3 mg/dL 2.3-3.5 N Albumin/Globulin Ratio (test code = AGRATIO) 2.2 ratio 0.8-2.0 H Alkaline Phosphatase (test c ode = ALP) 83 U/L 46-116 N Ethanol [id number] 00:09:00* Test Item Value Reference Range Interpretation Comme nts Ethanol (test code = ETOH) < 3 mg/dL The pharmacologi torito response to blood alcohol levels mayvary from individual to individual. The fatal concentrationhas been reported to be >400mg/dL. Coronavirus PCR, COVID19 [id number] 00:08:00* Test Item Value Reference Range Interpretation Comme nts Coronavirus PCR, COVID19 Rapid (test code = SARSCOV2) For use under Emergency Use Authorization (EUA) only. Coronavirus PCR, COVID19 Rapid (test code = QALBVNU09.1) Reference Range: Negative SARS-CoV-2 PCR Result: (test code = SARS-CoV-2 PCR Result:) Negative by RT-PCR COVID-19 Status: AsymptomaticCARBAMAZEPHINE (TEGRETOL)2020-09-26 08:42:00* Test Item Value Reference Range Interpretation Comme nts CARBAMAZPN (test code = 98A) 19.3 ug/mL 4.0-12.0 HH CARBAMAZEPHINE (TEGRETOL)2020-09-26 05:04:00* Test Item Value Reference Range Interpretation Comme nts CARBAMAZPN (test code = 98A) 20.1 ug/mL 4.0-12.0 HH URINALYSIS WITH [id number] 02:45:00* Test Item Value Reference Range Interpretation Comme nts COLOR (test code = COLU) YELLOW YELLOW [...] code = USPERM) /HPF NONE DRUGS OF [id number] 02:43:00* Test Item Value Reference Range Interpretation Comme nts DRUG SCRN (test code = HDOA) URINE DRUG SCREEN This is an unconfirmed screening result and should not be used for non-medical purposes CANNABINOD (test code = 88C) Negative NEGATIVE AMPHETAMINE (test code = 84A) Negative NEGATIVE BENZODIAZP (test code = 86A) Negative NEGATIVE BARBITURAT (test code = 85A) Negative NEGATIVE OPIATES (test code = 92B) Negative NEGATIVE COCAINE (test code = 87A) Negative NEGATIVE PHENCYCLID (test code = 66A) Negative NEGATIVE METHADONE (test code = 64A) Negative NEGATIVE DOAH (test code = DOAH.) URINE DRUG SCREEN Cut-off values are as follows: Cannabinoids 50 ng/mL Cocaine 300 ng/mL Amphetamines 1000 ng/mL Phencyclidine 25 ng/mL Benzodiazepines 200 ng.mL Methadone 300 ng/mL Barbiturates 200 ng/mL Opiates 2000 ng/mL CARBAMAZEPHINE (TEGRETOL)2020-09-26 01:14:00* Test Item Value Reference Range Interpretation Comme nts CARBAMAZPN (test code = 98A) 22.4 ug/mL 4.0-12.0 HH SARS-CoV (RAPID ANTIGEN)2020-09-26 00:52:00* Test Item Value Reference Range Interpretation Comme nts SARS-CoV (ANTIGEN) (test code = COVAG) NEGATIVE NEGATIVE COVID AG (test code = COVAGC) This test has been marketed under the FDA Emergency Use Authorization (EUA) to meet challenges of the COVID-19 pandemic. The validation standards normally enforced by the FDA and the [employer] (CAP) are more stringent than those required for this test. Therefore, the result should be interpreted with caution and close attention to other clinical and epidemiological data PRO TIME AND [id number] 00:51:00* Test Item Value Reference Range Interpretation Comme nts PT (test code = TT) 11.6 s 9.8-13.6 INR (test code = INR) 1.0 INRH (test code = INRH) SUGGESTED THERAPEUTIC RANGE FOR INR: 2.5 - 3.5 For Patients with Prosthetic Valves or Patients with recurrent Thromboembolic Events 2.0 - 3.0 For Most Other Applications PTT (test code = PTT) 32.1 s 20.2-38.0 PTTH (test code = PTTH) To monitor the effectiveness of heparin, we offer the Anti-Xa (Heparin Assay). It can be used for either unfractionated or LMW Heparin. Order Code is ANTI-XA COMPREHENSIVE METABOLIC [id number] 00:47:00* Test Item Value Reference Range Interpretation Comme nts GLUCOSE (test code = 06D) 93 mg/dL 75-100 SODIUM (test code = 01A) 137 mmol/L 136-145 POTASSIUM (test code = 01B) 3.8 mmol/L 3.6-5.1 CHLORIDE (test code = 04A) 103 mmol/L 98-107 CO2 (test code = 02A) 30 mmol/L 22-32 ANION GAP (test code = ANG) 7.8 mmol/L BUN (test code = 05D) 13 mg/dL 7-18 CREATININE (test code = 03E) 0.6 mg/dL 0.4-1.1 GFR (test code = GFR) 133 mL/min/1.73m\S\2 See_Comment [Automated message] The system which generated this result transmitted reference range: >=90. The reference range was not used to interpret this result as normal/abnormal. GFR (test code = GFRAA) 154 mL/min/1.73m\S\2 See_Comment [Automated message] The system which generated this result transmitted reference range: >=90. The reference range was not used to interpret this result as normal/abnormal. EGFR (test code = EGFR) eGFR BY CKD-EPI CALCULATION IS NOT RECOMMENDED FOR PATIENTS UNDER 18 YEARS OF AGE. BUN/CREA (test code = BCR) 22 12-20 H CALCIUM (test code = 09D) 9.1 mg/dL 8.3-9.5 BILI TOTAL (test code = 11A) 0.2 mg/dL 0.2-1.0 PROTEIN (test code = 07D) 7.7 g/dL 6.4-8.2 ALBUMIN (test code = 08D) 4.1 g/dL 3.5-4.8 GLOBULIN (test code = GLB) 3.6 g/dL 1.5-3.8 ALB/GLOB (test code = AGRR) 1.1 1.0-2.6 ALK PHOS (test code = 35A) 82 IU/L 42-121 AST (test code = 30A) 14 IU/L See_Comment [Automated message] The system which generated this result transmitted reference range: <=42. The reference range was not used to interpret this result as normal/abnormal. ALT (test code = 31A) 30 IU/L See_Comment [Automated message] The system which generated this result transmitted reference range: <=78. The reference range was not used to interpret this result as normal/abnormal. [id number] 00:47:00* Test Item Value Reference Range Interpretation Comme nts ACETAMINPH (test code = 94M) 3.6 ug/mL 10.0-30.0 L CARDIAC [id number] 00:47:00* Test Item Value Reference Range Interpretation Comme nts TROPONIN I (test code = A84) <0.015 ng/mL 0.000-0.045 ALCOHOL BLOOD (ETOH)2020-09-26 00:44:00* Test Item Value Reference Range Interpretation Comme nts ETOH (test code = HALC) ETHANOL The result is to be used only for medical purposes ALCOHOL (test code = 56A) <10 mg/dL See_Comment [Automated messa ge] The system which generated this result transmitted reference range: <=10. The reference range was not used to interpret this result as normal/abnormal. [id number] 00:42:00* Test Item Value Reference Range Interpretation Comme nts SALICYLATE (test code = 94B) <1.7 mg/dL 2.8-20.0 L SERUM [id number] 00:38:00* Test Item Value Reference Range Interpretation Comme nts PREG SRM (test code = PGS) NEGATIVE NEGATIVE CBC (INCLUDES AUTOMATED DIFFERENTIAL)2020-09-26 00:36:00* Test Item Value Reference Range Interpretation Comme nts WBC (test code = WBC) 7.6 10\S\3/uL [...]
[2023-07-11 16:30] LABS: Specific Gravity 1.028 (1.005-1.030)
[2023-07-11 16:37] LABS: Absolute Lymphocytes (CBC) 2.1 K/uL (0.7-4.9); Hematocrit 45.1 % (36.0-45.0); Lymphocytes % 24.9 % (15.3-44.8); MPV 8.3 fL (7.6-11.3); Platelets 335 thou/uL (152-406); RBC Red Blood Cell Count 5.18 M/uL (3.86-4.86)
[2023-07-11 16:42] LABS: Potassium 3.6 mEq/L (3.5-5.1)
--- NOTE | 2023-07-11 16:46 | RAD REPORT ---
EXAM DESCRIPTION: CT - Soft Tissue Neck W/Contr CLINICAL HISTORY: Sore throat;Swelling COMPARISON: No comparisons TECHNIQUE All CT scans are performed using dose optimization technique as appropriate and may includ e automated exposure control or mA/KV adjustment according to patient size. FINDINGS: Nasopharyngeal tissues are normal in appearance. Fossa Rosenmller are normal. Tonsillar hypertrophy but no mass or fluid collection identified. Parapharyngeal fat triangles are symmetric. Tongue base structures are normal. Epiglottis and aryepiglottic folds are normal. Piriform sinuses are well aerated. The vocal cords are normal in appearance. Salivary glands are normal in appearance. Azygos fissure, a normal variant. Included intracranial contents are unremarkable. IMPRESSION: No acute soft tissue abnormality within the neck. No fluid collections.
--- NOTE | 2023-07-11 17:18 | ER ---
Nurse's Notes [facility] Name: Vanda Pompa Age: 23 yrs Sex: Female : 2000 Arrival Date: 07/11/2023 Time: 15:04 Bed DX1 Private MD: Diagnosis: Acute tonsillitis, unspecified Presentation: 07/11 15:11 Chief complaint: Patient states: has a lump in throat for a few days and now is iw coughing up some "weird stuff that looks meaty" , it does not feel like phlegm, it feels hard , it hurts to swallow. Coronavirus screen: At this time, the client does not indicate any symptoms associated with coronavirus-19. Ebola Screen: Patient negative for fever greater than or equal to 101.5 degrees Fahrenheit, and additional compatible Ebola Virus Disease symptoms Patient denies exposure to infectious person. Patient denies travel to an Ebola-affected area in the 21 days before illness onset. No symptoms or risks identified at this time. Initial Sepsis Screen: Does the patient meet any 2 criteria? No. Patient's initial sepsis screen is negative. Does the patient have a suspected source of infection? No. Patient's initial sepsis screen is negative. Risk Assessment: Do you want to hurt yourself or someone else? Patient reports no desire to harm self or others. Onset of symptoms was July 08, 2023. 15:11 Method Of Arrival: Ambulatory iw 15:11 Acuity: FREDY 3 iw Historical: - Allergies: 15:13 No Known Allergies; iw - Home Meds: 15:13 Abilify Oral [Active]; Strattera Oral [Active]; iw - PMHx: 15:13 adhd; Anxiety; Asthma; Bipolar disorder; depressive disorder; Ovarian cyst; iw - PSHx: 15:13 ear surgery; iw - Immunization history:: Adult Immunizations not up to date. - Social history:: Smoking status: Reported history of juuling and/or vaping. Screenin:06 [facility] ED Fall Risk Assessment (Adult) Score/Fall Risk Level 0 - 2 = Low Risk. Abuse iw screen: Denies threats or abuse. Denies injuries from another. Nutritional screening: No deficits noted. Tuberculosis screening: No symptoms or risk factors identified. Assessment: 17:06 Reassessment: Patient appears in no apparent distress at this time. Patient and/or iw family updated on plan of care and expected duration. Pain level reassessed. Patient is alert, oriented x 3, equal unlabored respirations, skin warm/dry/pink. Vital Signs: 15:11 BP 125 / 76; Pulse 97; Resp 16; Pulse Ox 100% on R/A; Weight 56.7 kg; Height 5 ft. 3 iw in. ; 15:11 Body Mass Index 22.14 (56.70 kg, 160.02 cm) iw ED Course: 15:07 Patient arrived in ED. im 15:13 Triage completed. iw 15:13 Arm band placed on. iw 15:19 Nidia Briones MD is Attending Physician. gb1 16:00 Initial lab(s) drawn, by me, sent to lab. Inserted saline lock: 22 gauge in right iw antecubital area, using aseptic technique. Blood collected. 16:22 Test, Urine Sent. iw 16:31 CT Soft Tissue Neck W/contr In Process Unspecified. EDMS 17:07 Staci Damico, RN is Primary Nurse. iw 17:07 Patient has correct armband on for positive identification. Provided Education on: . iw Administered Medications: No medications were administered Medication: 17:06 VIS not applicable for this client. iw Outcome: 17:18 Discharge ordered by . gb1 17:42 Patient left the ED. iw Signatures: Dispatcher [employer] Staci Driscoll, RN RN Sindi Samuels Nidia Briones MD MD gb1
--- NOTE | 2023-07-11 17:18 | EDPHYS ---
Physician Documentation [facility] Name: Vanda Pompa Age: 23 yrs Sex: Female : 2000 Arrival Date: 07/11/2023 Time: 15:04 Bed DX1 Private MD: ED Physician Nidia Briones HPI: 07/11 17:31 This 23 yrs old Female presents to ER via Ambulatory with complaints of Neck gb1 Swelling, Coughing up meat, Shortness Of Breath. 17:31 23-year-old female here with neck swelling after coughing up meat. She feels like it is gb1 difficult to swallow and painful when she does so. She denies any difficulty eating solids or liquids. She of note recently stopped taking testosterone about 4 months ago due to a scare.. Historical: - Allergies: 15:13 No Known Allergies; iw - Home Meds: 15:13 Abilify Oral [Active]; Strattera Oral [Active]; iw - PMHx: 15:13 adhd; Anxiety; Asthma; Bipolar disorder; depressive disorder; Ovarian cyst; iw - PSHx: 15:13 ear surgery; iw - Immunization history:: Adult Immunizations not up to date. - Social history:: Smoking status: Reported history of juuling and/or vaping. ROS: 17:31 Neck: Positive for mass, pain with movement, tenderness, gb1 17:31 All other systems are negative, gb1 Exam: 17:31 Constitutional: This is a well developed, well nourished patient who is awake, alert, gb1 and in no acute distress. Head/Face: Normocephalic, atraumatic. Eyes: Pupils equal round and reactive to light, extra-ocular motions intact. Lids and lashes normal. Conjunctiva and sclera are non-icteric and not injected. Cornea within normal limits. Periorbital areas with no swelling, redness, or edema. Chest/axilla: Normal chest wall appearance and motion. Nontender with no deformity. No lesions are appreciated. Cardiovascular: Regular rate and rhythm with a normal S1 and S2. No gallops, murmurs, or rubs. Normal PMI, no JVD. No pulse deficits. Respiratory: Lungs have equal breath sounds bilaterally, clear to auscultation and percussion. No rales, rhonchi or wheezes noted. No increased work of breathing, no retractions or nasal flaring. Abdomen/GI: Soft, non-tender, with normal bowel sounds. No distension or tympany. No guarding or rebound. No evidence of tenderness throughout. Back: No spinal tenderness. No costovertebral tenderness. Full range of motion. Skin: Warm, dry with normal turgor. Normal color with no rashes, no lesions, and no evidence of cellulitis. MS/ Extremity: Pulses equal, no cyanosis. Neurovascular intact. Full, normal range of motion. 17:31 ENT: Posterior pharynx: is normal, Tonsils: enlarged on the right, enlarged on the left, with erythema, erythema, Breath odor: smells like rotten eggs, Vital Signs: 15:11 BP 125 / 76; Pulse 97; Resp 16; Pulse Ox 100% on R/A; Weight 56.7 kg; Height 5 ft. 3 iw in. ; 15:11 Body Mass Index 22.14 (56.70 kg, 160.02 cm) iw MDM: 15:19 Patient medically screened. gb1 17:31 Differential diagnosis: Acute streptococcal pharyngitis, acute tonsillitis, doubt gb1 peritonsillar abscess. Doubt Zenker's diverticulum or foreign body in the esophagus. Doubt retropharyngeal abscess. Data reviewed: vital signs, lab test result(s), CBC, electrolytes, radiologic studies, CT scan. ED course: Patient here with signs symptoms consistent with a viral versus bacterial tonsillitis. Streptococcus rapid is negative today will be cultured. I will discharge her home with Augmentin and 5 days of prednisone. She is able to tolerate fluids by mouth and shows no signs of not being able to handle her secretions. Discharge home with explicit return precautions. Patient is compliant with this plan of care discharge.. 07/11 15:30 Order name: CBC with Diff; Complete Time: 17:07/11 15:30 Order name: BMP; Complete Time: 17:07/11 15:31 Order name: Rapid Strep gb1 07/11 15:31 Order name: Test, Urine; Complete Time: 17:07/11 17:06 Order name: Throat Culture EDMS 07/11 15:31 Order name: CT Soft Tissue Neck W/contr; Complete Time: 17:09 15:30 Order name: IV Saline Lock; Complete Time: 16:22 gb1 07/11 15:30 Order name: Labs collected and sent; Complete Time: 16: gb1 Administered Medications: No medications were administered Disposition: 17:34 Chart complete. gb1 Disposition Summary: 07/11/23 17:18 Discharge Ordered Notes: Location: Home gb1 Problem: new gb1 Symptoms: are unchanged gb1 Condition: Stable gb1 Diagnosis - Acute tonsillitis, unspecified gb1 Followup: gb1 - With: Private Physician - When: - Reason: Re-evaluation by your physician Discharge Instructions: - Discharge Summary Sheet gb1 - Tonsillitis, [id number] gb1 Forms: - Medication Reconciliation Form gb1 - Thank You Letter gb1 - Antibiotic Education gb1 - Prescription Opioid Use gb1 - Patient Portal Instructions gb1 - Leadership Thank You Letter gb1 Prescriptions: - Augmentin 875-125 mg Oral Tablet - take 1 tablet ORAL route every 12 hours for 10 days; 20 tablet; Refills: 0, gb1 Product Selection Permitted - Prednisone 20 mg Oral Tablet - take 2 tablets ORAL route once daily for 5 days; 10 tablet; Refills: 0, Product gb1 Selection Permitted Signatures: Dispatcher [employer] Staci Driscoll RN RN iw Blocker, Gina, MD MD gb1
[2023-07-11 20:41] VITALS: BP 125/76; O2SAT 100
== END ==
LOC: ER 15:04
DX: J03.90 Acute tonsillitis, unspecified (principal); F90.9 Attention-deficit hyperactivity disorder, unspecified type; F31.9 Bipolar disorder, unspecified; F41.9 Anxiety disorder, unspecified; F17.290 Nicotine dependence, other tobacco product, uncomplicated
CPT/HCPCS: 87070; 85025; 80048; 36415; 81025; 87081; 70491; 99283; Q9967

== ENCOUNTER → 2023-08-27 | Emergency (ER) | payer OTHER ==
--- OUTSIDE RECORDS SUMMARY | 2023-08-27 08:40 | XMS REPORT | Continuity of Care Document ---
Author Name Unknown Address [address] [facility] [address]. [address] [place] [address] [facility] thconnect Address [address] [facility]. [address] [place] [address] Care Team Providers Care Advertising Campaign Manager Name Role Phone Pcp, Patient Does Not Have A Primary Care Physic venancio SUSAN VALVERDE Attending Clinician Unavailable ALEJANDRA FLORES Attending Clinician ALEJANDRA Venegas Attending Clinician Abby Alonso Attending Clinician [phone] Doctor Unassigned, [place] Attending Clinician U HANDY Posada Attending Clinician Unavailable Unknown, Attending Attending Clinician Unavailab abby ESCOTOCHandy Attending Clinician + [phone] ABBY LUKE Attending Clinician Unavailable DEONNA MELENDREZ Attending Clinician Unavailable Denona Ferrell Attending Clinician [phone] Godwin Hand Attending Clinician [phone] Gino Iqbal Attending Clinician Unavailable GODWIN HANDY Attending Clinician Unavailable Susan Valverde MD Attending Clinician [phone] Pcp-Lab Attending Clinician Unavailable LUCINDA WILLS Attending Clinician Unavailable Pcp, Patient Does Not Have A Attending Clinician Bouchra Mcintosh MD Attending Clinician [phone] BOUCHRA MCINTOSH Attending Clinician Unavailable JAMES JACOBS Attending Clinician Unavailable TEJAL FORD Attending Clinician Unavailable ELENITA SHARMA Attending Clinician UnavailJose Clayton Attending Clinician Unavailable Eric Moore Attending Clinician Unavailable IRASEMA ROBLEDO Attending Clinician Unavailable Irasema Michel Attending Clinician [phone] Shivani Castaneda Attending Clinician + [phone] Nurse, [facility] Attending Clinician Un available SHIVANI GUERRA Attending Clinician Unavailab Negrita So LVN Attending Clinician + [phone] Keagan Luo MD Attending Clinician [phone] Clinic-Stv, Care Transition Attending Clinician Unavailable NOLVIA HUSAIN Attending Clinician Unavailable Nolvia Husain MD Attending Clinician [phone] Vignesh Mack MD Attending Clinician + Vaccine, Janice Attending Clinician VIGNESH Lafleur Attending Clinician Unavailable Kitty KESSLER Attending Clinician Unavailable Kitty Crews Attending Clinician [phone] ASH RAMIREZ Attending Clinician Unavailable James ROBERTS, Ash Attending Clinician [phone] Maggie Brooks MD Attending Clinician [phone] Bipin ROBERTS, Akiko Attending Clinician [phone] AKIKO GRAY Attending Clinician Unavailable Vania Rivera Attending Clinician [phone] VANIA EM Attending Clinician Unavailable Jameson ROBERTS, Lucinda Littlejohn Attending Clinician [phone] SHIVANI VAUGHN Attending Clinician Unavailabl SHIVANI Rush Attending Clinician Unavailfrancesca Patel MD, Pat Attending Clinician [phone] HONORIO GALARZA Attending Clinician Unavaila sharon Pob, [facility] Main Attending Clinician Unavailfrancesca Payton MD, Ryan Attending Clinician [phone] RYAN PAYTON Attending Clinician Unavailab Shea, Jerry Attending Clinician [phone] Nurse, Pcp Immunization Attending Clinician Unav ailGideon Golden DO Attending Clinician [phone] GIDEON MONTEZ Attending Clinician Unavail able Bethel Isaacs MD Attending Clinician [phone] BETHEL ISAACS Attending Clinician Unavailabl e Health, Tg Hormone Attending Clinician Unavailab James Serna MD Attending Clinician [phone] [facility] Burke Espinoza MD Attending Clinician + BURKE BECKETT Attending Clinician Unavailable Paolo Casillas MD Attending Clinician [phone] Tim Holguin MD Attending Clinician + [phone] TIM HOLGUIN Attending Clinician Yanely Andesron, [facility] Clinician Unavailable CHELSY ROMO Attending Clinician UnavailGio Hightower MD Attending Clinician [phone] GIO MARTINEZ Attending Clinician Unavailable DR ALAINA PARRY Attending Clinician Unavailable Nilton Montes MD Attending Clinician NILTON MONTES Attending Clinician Unavailab NILTON Gee Attending Clinician Unavailab DENA Gutierrez Attending Clinician Unavail TRUNG Bethea Attending Clinician Unav ailRuchi Mejias Attending Clinician [phone] UNKNOWN, ATTENDING Attending Clinician Unavailab Hna Booth Faculty Attending Clinician Unav NILTON Fitch Admitting Clinician Unavailab IRASEMA Nuñez Admitting Clinician Unavailable Person Keagan ROBERTS Admitting Clinician [phone] PERSONKEAGAN Admitting Clinician Unavailable DR ALAINA PARRY Admitting Clinician Unavailable Payers Payer Name Policy Type Policy Number Effective Date Expirati on Date Source MEDICAID Traditional P [id number] [facility] MEDICAID STAR [id number] 2021 00:00:00 [facility] MEDICAID [id number] 2016 00:00:00 Problems Condition Name Condition Details Condition Category Status Onset Date Resolution Date Last Treatment Date Treating Clinician Comments Source Drug abuse Drug abuse Disease Active 2022-07 0-26 00:00: 00 [facility] Trauma Trauma Disease Active 2021-07 0-03 00:00: 00 [facility] Menorrhagi a with regular cycle Menorrhagi a with regular cycle Disease Active 4- 00:00: 00 [facility] Recurrent major depressive disorder Recurrent major depressive disorder Disease Active 7- 00:00: 00 [facility] Bipolar disorder, in partial remission, most recent episode mixed Bipolar disorder, in partial remission, most recent episode mixed Disease Active 5-19 00:00: 00 Overview: Formattin g of this note might be different from the original. Diagnosis per recent hospitali stefania [facility] Abnormal uterine bleeding (AUB) Abnormal uterine bleeding (AUB) Disease Active 2019-07 0 00:00: 00 [facility] SANDRA (generaliz ed anxiety disorder) SANDRA (generaliz ed anxiety disorder) Disease Active 07-13 00:00: 00 [facility] Attention deficit hyperactiv ity disorder (ADHD) Attention deficit hyperactiv ity disorder (ADHD) Disease Active 2008-07 00:00: 00 Overview: Formattin g of this note might be different from the original. 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 Allergies, Adverse Reactions, Alerts Allergy Name Allergy Type Status Severity Reaction(s) Onset Date Inactive Date Treating Clinician Comments Source No Known Allergie s DA Active U 07-15 00:00: 00 [facility] No Known Allergie s DA Active U 07-04 00:00: 00 [facility] No Known Drug Allergie s DA Active U 07-09 00:00: 00 [facility] No Known Drug Allergie s DA Active U 2020-07 00:00: 00 [facility] Unable to Assess DA Active U 2020-07 00:00: 00 [facility] No Known Drug Allergie s DA Active [facility] NO KNOWN ALLERGIE S Drug Class Active [facility] Family History Family Member Diagnosis Comments Start Date Stop Date Sourc e Natural brother Psychiatry [facility] Natural father Alcohol abuse [facility] Natural father Substance abuse [facility] Natural mother Psychiatry [facility] Social History Social Habit Start Date Stop Date Quantity Comments Source Gender identity [facility] Sexual orientation [facility] History SDOH Alcohol Comment [place] [facility] Alcohol intake 2023-07-25 00:00:00 2023-07-25 00:00:00 Lifetime non-drinker (finding) [facility] History of Social function 2023-07-04 00:00:00 2023-07-04 00:00:00 [facility] Exposure to SARS-CoV-2 (event) 2022-11-15 00:00:00 2022-11-25 08:41:00 Not sure [facility] Tobacco use and exposure 2022-01-17 00:00:00 2022-01-17 00:00:00 Smokeless tobacco non-user [facility] History SDOH Alcohol Frequency 2020-04-20 00:00:00 2020-04-20 00:00:00 1 [facility] History SDOH Alcohol Std Drinks 2020-04-20 00:00:00 2020-04-20 00:00:00 99 [facility] History SDOH Alcohol Binge 2020-04-20 00:00:00 2020-04-20 00:00:00 1 [facility] Sex Assigned At 2002 00:00:00 2002 00:00:00 [facility] Smoking Status Start Date Stop Date Source Never smoked tobacco [facility] Medications Ordered Medication Name Filled Medication Name Start Date Stop Date Current Medication? Ordering Clinician Indication Dosage Frequency Signature (SIG) Comments Components Source ARIPiprazol e 15 mg tablet 08-12 00:00: 00 09-11 04:59 :00 Yes [id number] 15mg Take 1 tablet by mouth in the morning for [address] [facility] ARIPiprazol e 15 mg tablet 2023-0 08-12 00:00: 00 09-11 04:59 :00 Yes [id number] 15mg Take 1 tablet by mouth in the morning for [address] [facility] fluticasone propionate 50 mcg/actuati on nasal spray 08-11 00:00: 00 Yes [id number] SPRAY 2 SPRAYS INTO EACH NOSTRIL IN THE MORNING [facility] CETIRIZINE 10 mg tablet 0 08-11 00:00: 00 Yes [id number] 10mg TAKE 1 TABLET BY MOUTH EVERY DAY IN THE MORNING [facility] fluticasone propionate 50 mcg/actuati on nasal spray 08-11 00:00: 00 Yes [id number] SPRAY 2 SPRAYS INTO EACH NOSTRIL IN THE MORNING [facility] CETIRIZINE 10 mg tablet 2023-0 08-11 00:00: 00 Yes [id number] 10mg TAKE 1 TABLET BY MOUTH EVERY DAY IN THE MORNING [facility] fluticasone propionate 50 mcg/actuati on nasal spray 2- 00:00: 00 Yes [id number] SPRAY 2 SPRAYS INTO EACH NOSTRIL IN THE MORNING [facility] CETIRIZINE 10 mg tablet 2- 00:00: 00 Yes [id number] 10mg TAKE 1 TABLET BY MOUTH EVERY DAY IN THE MORNING [facility] azelastine 137 mcg (0.1 %) nasal spray 07-19 00:00: 00 Yes [id number] 1{spray } Use 1 Crum in each nostril in the morning and 1 Crum in the evening. Use in each nostril as directed [facility] azelastine 137 mcg (0.1 %) nasal spray 07-19 00:00: 00 Yes [id number] 1{spray } Use 1 Crum in each nostril in the morning and 1 Crum in the evening. Use in each nostril as directed [facility] azelastine 137 mcg (0.1 %) nasal spray 07-19 00:00: 00 Yes [id number] 1{spray } Use 1 Crum in each nostril in the morning and 1 Crum in the evening. Use in each nostril as directed [facility] azelastine 137 mcg (0.1 %) nasal spray 07-19 00:00: 00 Yes [id number] 1{spray } Use 1 Crum in each nostril in the morning and 1 Crum in the evening. Use in each nostril as directed [facility] azelastine 137 mcg (0.1 %) nasal spray 07-19 00:00: 00 Yes [id number] 1{spray } Use 1 Crum in each nostril in the morning and 1 Crum in the evening. Use in each nostril as directed [facility] atomoxetine (STRATTERA) 25 mg capsule 07-13 15:53: 46 Yes 25mg Take 1 capsule by mouth in the morning. [facility] atomoxetine (STRATTERA) 25 mg capsule 07-13 15:53: 46 Yes 25mg Take 1 capsule by mouth in the morning. [facility] atomoxetine (STRATTERA) 25 mg capsule 2023-0 07-13 15:53: 46 Yes 25mg Take 1 capsule by mouth in the morning. [facility] atomoxetine (STRATTERA) 25 mg capsule 2023-07-13 15:53: 46 Yes 25mg Take 1 capsule by mouth in the morning. [facility] atomoxetine (STRATTERA) 25 mg capsule 07-13 15:53: 46 Yes 25mg Take 1 capsule by mouth in the morning. [facility] atomoxetine (STRATTERA) 25 mg capsule 07-13 15:53: 46 Yes 25mg Take 1 capsule by mouth in the morning. [facility] atomoxetine (STRATTERA) 25 mg capsule 07-13 15:53: 46 Yes 25mg Take 1 capsule by mouth in the morning. [facility] cetirizine (ZYRTEC) 10 mg tablet 07-13 00:00: 00 Yes [id number] 10mg Take 1 tablet by mouth in the morning. [facility] fluticasone propionate 50 mcg/actuati on nasal spray 07-13 00:00: 00 Yes [id number] 2{spray } Use 2 Sprays in each nostril in the morning. [facility] cetirizine (ZYRTEC) 10 mg tablet 07-13 00:00: 00 Yes [id number] 10mg Take 1 tablet by mouth in the morning. [facility] fluticasone propionate 50 mcg/actuati on nasal spray 07-13 00:00: 00 Yes [id number] 2{spray } Use 2 Sprays in each nostril in the morning. [facility] cetirizine (ZYRTEC) 10 mg tablet 07-13 00:00: 00 Yes [id number] 10mg Take 1 tablet by mouth in the morning. [facility] fluticasone propionate 50 mcg/actuati on nasal spray 07-13 00:00: 00 Yes [id number] 2{spray } Use 2 Sprays in each nostril in the morning. [facility] cetirizine (ZYRTEC) 10 mg tablet -11 00:00: 00 Yes [id number] 10mg Take 1 tablet by mouth in the morning. [facility] fluticasone propionate 50 mcg/actuati on nasal spray - 00:00: 00 Yes [id number] 2{spray } Use 2 Sprays in each nostril in the morning. [facility] cetirizine (ZYRTEC) 10 mg tablet 07-13 00:00: 00 08-11 00:00 :00 No [id number] 10mg Take 1 tablet by mouth in the morning. [facility] fluticasone propionate 50 mcg/actuati on nasal spray 07-13 00:00: 00 08-11 00:00 :00 No [id number] 2{spray } Use 2 Sprays in each nostril in the morning. [facility] cetirizine (ZYRTEC) 10 mg tablet 07-13 00:00: 00 08-11 00:00 :00 No [id number] 10mg Take 1 tablet by mouth in the morning. [facility] fluticasone propionate 50 mcg/actuati on nasal spray 07-13 00:00: 00 08-11 00:00 :00 No [id number] 2{spray } Use 2 Sprays in each nostril in the morning. [facility] cetirizine (ZYRTEC) 10 mg tablet - 00:00: 00 08-11 00:00 :00 No [id number] 10mg Take 1 tablet by mouth in the morning. [facility] fluticasone propionate 50 mcg/actuati on nasal spray -11 00:00: 00 08-11 00:00 :00 No [id number] 2{spray } Use 2 Sprays in each nostril in the morning. [facility] Levonorgest rel (PLAN B ONE-STEP) 1.5 mg tablet 2023-05 00:00: 00 07-08 05:59 :00 Yes [id number] 1.5mg Take 1 tablet by mouth once now for [address] [facility] Levonorgest rel (PLAN B ONE-STEP) 1.5 mg tablet 07-07 00:00: 00 07-08 05:59 :00 Yes [id number] 1.5mg Take 1 tablet by mouth once now for [address] [facility] ARIPiprazol e 15 mg tablet 0 07-04 00:00: 00 Yes [id number] 15mg Take 1 tablet by mouth in the morning. [facility] atomoxetine 80 mg capsule 0 07-04 00:00: 00 Yes [id number] 80mg Take 1 capsule by mouth in the morning. [facility] ARIPiprazol e 15 mg tablet 0 07-04 00:00: 00 Yes [id number] 15mg Take 1 tablet by mouth in the morning. [facility] atomoxetine 80 mg capsule 0 07-04 00:00: 00 Yes [id number] 80mg Take 1 capsule by mouth in the morning. [facility] ARIPiprazol e 15 mg tablet 0 07-04 00:00: 00 Yes [id number] 15mg Take 1 tablet by mouth in the morning. [facility] atomoxetine 80 mg capsule 2023-0 07-04 00:00: 00 Yes [id number] 80mg Take 1 capsule by mouth in the morning. [facility] ARIPiprazol e 15 mg tablet 2023-0 07-04 00:00: 00 Yes [id number] 15mg Take 1 tablet by mouth in the morning. [facility] atomoxetine 80 mg capsule 0 07-04 00:00: 00 Yes [id number] 80mg Take 1 capsule by mouth in the morning. [facility] ARIPiprazol e 15 mg tablet 4-0 - 00:00: 00 Yes [id number] 15mg Take 1 tablet by mouth in the morning. [facility] ARIPiprazol e 15 mg tablet 07-04 00:00: 00 Yes [id number] 15mg Take 1 tablet by mouth in the morning. [facility] ARIPiprazol e 15 mg tablet 07-04 00:00: 00 Yes [id number] 15mg Take 1 tablet by mouth in the morning. [facility] ARIPiprazol e 15 mg tablet 07-04 00:00: 00 Yes [id number] 15mg Take 1 tablet by mouth in the morning. [facility] ARIPiprazol e 15 mg tablet 07-04 00:00: 00 Yes [id number] 15mg Take 1 tablet by mouth in the morning. [facility] ARIPiprazol e 15 mg tablet 07-04 00:00: 00 Yes [id number] 15mg Take 1 tablet by mouth in the morning. [facility] ARIPiprazol e 15 mg tablet 07-04 00:00: 00 08-11 00:00 :00 No [id number] 15mg Take 1 tablet by mouth in the morning. [facility] ARIPiprazol e 15 mg tablet 07-04 00:00: 00 08-11 00:00 :00 No [id number] 15mg Take 1 tablet by mouth in the morning. [facility] atomoxetine 80 mg capsule 07-04 00:00: 00 07-13 00:00 :00 No [id number] 80mg Take 1 capsule by mouth in the morning. [facility] atomoxetine 80 mg capsule 07-04 00:00: 00 07-13 00:00 :00 No [id number] 80mg Take 1 capsule by mouth in the morning. [facility] hydrOXYzine 50 mg capsule 2022-07 00:00: 00 Yes TAKE 1 CAPSULE BY MOUTH THREE TIMES A DAY NEEDED [facility] hydrOXYzine 50 mg capsule 2022-07 00:00: 00 Yes TAKE 1 CAPSULE BY MOUTH THREE TIMES A DAY NEEDED [facility] hydrOXYzine 50 mg capsule 2022-07 00:00: 00 Yes TAKE 1 CAPSULE BY MOUTH THREE TIMES A DAY NEEDED [facility] hydrOXYzine 50 mg capsule 2022-07 00:00: 00 Yes TAKE 1 CAPSULE BY MOUTH THREE TIMES A DAY NEEDED [facility] hydrOXYzine 50 mg capsule 2022-07 00:00: 00 Yes TAKE 1 CAPSULE BY MOUTH THREE TIMES A DAY NEEDED [facility] hydrOXYzine 50 mg capsule 2022-07 00:00: 00 Yes TAKE 1 CAPSULE BY MOUTH THREE TIMES A DAY NEEDED [facility] hydrOXYzine 50 mg capsule 2022-07 00:00: 00 Yes TAKE 1 CAPSULE BY MOUTH THREE TIMES A DAY NEEDED [facility] hydrOXYzine 50 mg capsule 2022-07 00:00: 00 Yes TAKE 1 CAPSULE BY MOUTH THREE TIMES A DAY NEEDED [facility] hydrOXYzine 50 mg capsule 2022-07 00:00: 00 Yes TAKE 1 CAPSULE BY MOUTH THREE TIMES A DAY NEEDED [facility] hydrOXYzine 50 mg capsule 2022-07 00:00: 00 Yes TAKE 1 CAPSULE BY MOUTH THREE TIMES A DAY NEEDED [facility] hydrOXYzine 50 mg capsule 2022-07 00:00: 00 Yes TAKE 1 CAPSULE BY MOUTH THREE TIMES A DAY NEEDED [facility] hydrOXYzine 50 mg capsule 2022-07 00:00: 00 Yes TAKE 1 CAPSULE BY MOUTH THREE TIMES A DAY NEEDED [facility] hydrOXYzine 50 mg capsule 2022-07 00:00: 00 Yes TAKE 1 CAPSULE BY MOUTH THREE TIMES A DAY NEEDED [facility] hydrOXYzine 50 mg capsule 2022-07 00:00: 00 07-13 00:00 :00 No TAKE 1 CAPSULE BY MOUTH THREE TIMES A DAY NEEDED [facility] hydrOXYzine 50 mg capsule 2022-07 00:00: 00 07-13 00:00 :00 No TAKE 1 CAPSULE BY MOUTH THREE TIMES A DAY NEEDED [facility] diclofenac 75 mg EC tablet 2022-07 00:00: 00 Yes TAKE 1 TABLET BY MOUTH EVERY 12 HOURS NEEDED FOR PAIN [facility] diclofenac 75 mg EC tablet 2022-07 00:00: 00 Yes TAKE 1 TABLET BY MOUTH EVERY 12 HOURS NEEDED FOR PAIN [facility] diclofenac 75 mg EC tablet 2022-07 00:00: 00 Yes TAKE 1 TABLET BY MOUTH EVERY 12 HOURS NEEDED FOR PAIN [facility] diclofenac 75 mg EC tablet 2022-07 00:00: 00 Yes TAKE 1 TABLET BY MOUTH EVERY 12 HOURS NEEDED FOR PAIN [facility] diclofenac 75 mg EC tablet 2022-07 00:00: 00 Yes TAKE 1 TABLET BY MOUTH EVERY 12 HOURS NEEDED FOR PAIN [facility] diclofenac 75 mg EC tablet 2022-07 00:00: 00 Yes TAKE 1 TABLET BY MOUTH EVERY 12 HOURS NEEDED FOR PAIN [facility] diclofenac 75 mg EC tablet 2022-07 00:00: 00 Yes TAKE 1 TABLET BY MOUTH EVERY 12 HOURS NEEDED FOR PAIN [facility] diclofenac 75 mg EC tablet 2022-07 00:00: 00 Yes TAKE 1 TABLET BY MOUTH EVERY 12 HOURS NEEDED FOR PAIN [facility] diclofenac 75 mg EC tablet 2022-07 00:00: 00 Yes TAKE 1 TABLET BY MOUTH EVERY 12 HOURS NEEDED FOR PAIN [facility] diclofenac 75 mg EC tablet 2022-07 00:00: 00 Yes TAKE 1 TABLET BY MOUTH EVERY 12 HOURS NEEDED FOR PAIN [facility] diclofenac 75 mg EC tablet 2022-07 00:00: 00 Yes TAKE 1 TABLET BY MOUTH EVERY 12 HOURS NEEDED FOR PAIN [facility] diclofenac 75 mg EC tablet 2022-07 00:00: 00 Yes TAKE 1 TABLET BY MOUTH EVERY 12 HOURS NEEDED FOR PAIN [facility] diclofenac 75 mg EC tablet 2022-07 00:00: 00 Yes TAKE 1 TABLET BY MOUTH EVERY 12 HOURS NEEDED FOR PAIN [facility] diclofenac 75 mg EC tablet 2022-07 00:00: 00 07-13 00:00 :00 No TAKE 1 TABLET BY MOUTH EVERY 12 HOURS NEEDED FOR PAIN [facility] diclofenac 75 mg EC tablet 2022-07 00:00: 00 07-13 00:00 :00 No TAKE 1 TABLET BY MOUTH EVERY 12 HOURS NEEDED FOR PAIN [facility] ketorolac (TORADOL) injection 60 mg 2022-07 00:00: 04-26 00:12 :00 No 60mg 60 mg, Intramuscu lar, ONCE, 1 dose, On Mon04/25/23 at 1900, ARLEN [facility] ketorolac 10 mg tablet 2022-07 00:00: 00 Yes [id number] 10mg Take 1 tablet by mouth every 6 (six) hours as needed for Pain (scale 4-6). [facility] ketorolac 10 mg tablet 2022-07 00:00: 00 Yes [id number] 10mg Take 1 tablet by mouth every 6 (six) hours as needed for Pain (scale 4-6). [facility] ketorolac 10 mg tablet 2022-07 00:00: 00 Yes [id number] 10mg Take 1 tablet by mouth every 6 (six) hours as needed for Pain (scale 4-6). [facility] ketorolac 10 mg tablet 2022-07 00:00: 00 Yes [id number] 10mg Take 1 tablet by mouth every 6 (six) hours as needed for Pain (scale 4-6). [facility] ketorolac 10 mg tablet 2022-07 0 00:00: 00 Yes [id number] 10mg Take 1 tablet by mouth every 6 (six) hours as needed for Pain (scale 4-6). [facility] ketorolac 10 mg tablet 2022-07 024 00:00: 00 Yes [id number] 10mg Take 1 tablet by mouth every 6 (six) hours as needed for Pain (scale 4-6). [facility] ketorolac 10 mg tablet 2022-07 0-24 00:00: 00 Yes [id number] 10mg Take 1 tablet by mouth every 6 (six) hours as needed for Pain (scale 4-6). [facility] ketorolac 10 mg tablet 2022- 0-24 00:00: 00 Yes [id number] 10mg Take 1 tablet by mouth every 6 (six) hours as needed for Pain (scale 4-6). [facility] ketorolac 10 mg tablet 2022-07 0-24 00:00: 00 Yes [id number] 10mg Take 1 tablet by mouth every 6 (six) hours as needed for Pain (scale 4-6). [facility] ketorolac 10 mg tablet 2022-07 024 00:00: 00 Yes [id number] 10mg Take 1 tablet by mouth every 6 (six) hours as needed for Pain (scale 4-6). [facility] ketorolac 10 mg tablet 2022-07 024 00:00: 00 Yes [id number] 10mg Take 1 tablet by mouth every 6 (six) hours as needed for Pain (scale 4-6). [facility] ketorolac 10 mg tablet 2022-07 024 00:00: 00 Yes [id number] 10mg Take 1 tablet by mouth every 6 (six) hours as needed for Pain (scale 4-6). [facility] ketorolac 10 mg tablet 2022-07 024 00:00: 00 Yes [id number] 10mg Take 1 tablet by mouth every 6 (six) hours as needed for Pain (scale 4-6). [facility] ketorolac 10 mg tablet 2022-07 0-24 00:00: 00 Yes [id number] 10mg Take 1 tablet by mouth every 6 (six) hours as needed for Pain (scale 4-6). [facility] ketorolac 10 mg tablet 2022- 0-24 00:00: 00 Yes [id number] 10mg Take 1 tablet by mouth every 6 (six) hours as needed for Pain (scale 4-6). [facility] ketorolac 10 mg tablet 2022-07 0-24 00:00: 00 Yes [id number] 10mg Take 1 tablet by mouth every 6 (six) hours as needed for Pain (scale 4-6). [facility] ketorolac 10 mg tablet 2022-07 0 00:00: 00 Yes [id number] 10mg Take 1 tablet by mouth every 6 (six) hours as needed for Pain (scale 4-6). [facility] ketorolac 10 mg tablet 2022-07 0 00:00: 00 Yes [id number] 10mg Take 1 tablet by mouth every 6 (six) hours as needed for Pain (scale 4-6). [facility] ketorolac 10 mg tablet 2022-07 0 00:00: 00 Yes [id number] 10mg Take 1 tablet by mouth every 6 (six) hours as needed for Pain (scale 4-6). [facility] ketorolac 10 mg tablet 2022-07 0 00:00: 00 Yes [id number] 10mg Take 1 tablet by mouth every 6 (six) hours as needed for Pain (scale 4-6). [facility] ketorolac 10 mg tablet 2022-07 0 00:00: 00 07-13 00:00 :00 No [id number] 10mg Take 1 tablet by mouth every 6 (six) hours as needed for Pain (scale 4-6). [facility] ketorolac 10 mg tablet 2022-07 0 00:00: 00 07-13 00:00 :00 No [id number] 10mg Take 1 tablet by mouth every 6 (six) hours as needed for Pain (scale 4-6). [facility] ARIPiprazol e 15 mg tablet 2022-07 00:00: 00 Yes [id number] 15mg Take 1 tablet by mouth in the morning. [facility] atomoxetine 80 mg capsule 2022-07 0 00:00: 00 Yes [id number] 80mg Take 1 capsule by mouth in the morning. [facility] naltrexone 50 mg tablet 2022-07 00:00: 00 Yes [id number] 50mg Take 1 tablet by mouth in the morning. [facility] ARIPiprazol e 15 mg tablet 2022-07 0- 00:00: 00 Yes [id number] 15mg Take 1 tablet by mouth in the morning. [facility] atomoxetine 80 mg capsule 2022-07 0 00:00: 00 Yes [id number] 80mg Take 1 capsule by mouth in the morning. [facility] naltrexone 50 mg tablet 2022-07 0 00:00: 00 Yes [id number] 50mg Take 1 tablet by mouth in the morning. [facility] ARIPiprazol e 15 mg tablet 2022-07 0 00:00: 00 Yes [id number] 15mg Take 1 tablet by mouth in the morning. [facility] atomoxetine 80 mg capsule 2022-07 0 00:00: 00 Yes [id number] 80mg Take 1 capsule by mouth in the morning. [facility] naltrexone 50 mg tablet 2022-07 0 00:00: 00 Yes [id number] 50mg Take 1 tablet by mouth in the morning. [facility] ARIPiprazol e 15 mg tablet 2022-07 0 00:00: 00 Yes [id number] 15mg Take 1 tablet by mouth in the morning. [facility] atomoxetine 80 mg capsule 2022-07 0 00:00: 00 Yes [id number] 80mg Take 1 capsule by mouth in the morning. [facility] naltrexone 50 mg tablet 2022-07 0 00:00: 00 Yes [id number] 50mg Take 1 tablet by mouth in the morning. [facility] ARIPiprazol e 15 mg tablet 2022-07 0 00:00: 00 Yes [id number] 15mg Take 1 tablet by mouth in the morning. [facility] atomoxetine 80 mg capsule 2022-07 0 00:00: 00 Yes [id number] 80mg Take 1 capsule by mouth in the morning. [facility] naltrexone 50 mg tablet 2022-07 0 00:00: 00 Yes [id number] 50mg Take 1 tablet by mouth in the morning. [facility] ARIPiprazol e 15 mg tablet 2022-07 017 00:00: 00 Yes [id number] 15mg Take 1 tablet by mouth in the morning. [facility] atomoxetine 80 mg capsule 2022-07 0 00:00: 00 Yes [id number] 80mg Take 1 capsule by mouth in the morning. [facility] naltrexone 50 mg tablet 2022-07 0 00:00: 00 Yes [id number] 50mg Take 1 tablet by mouth in the morning. [facility] ARIPiprazol e 15 mg tablet 2022-07 0 00:00: 00 Yes [id number] 15mg Take 1 tablet by mouth in the morning. [facility] atomoxetine 80 mg capsule 2022-07 0 00:00: 00 Yes [id number] 80mg Take 1 capsule by mouth in the morning. [facility] naltrexone 50 mg tablet 2022-07 0 00:00: 00 Yes [id number] 50mg Take 1 tablet by mouth in the morning. [facility] ARIPiprazol e 15 mg tablet 2022-07 0 00:00: 00 Yes [id number] 15mg Take 1 tablet by mouth in the morning. [facility] atomoxetine 80 mg capsule 2022-07 0 00:00: 00 Yes [id number] 80mg Take 1 capsule by mouth in the morning. [facility] naltrexone 50 mg tablet 2022-07 0 00:00: 00 Yes [id number] 50mg Take 1 tablet by mouth in the morning. [facility] ARIPiprazol e 15 mg tablet 2022-07 0 00:00: 00 Yes [id number] 15mg Take 1 tablet by mouth in the morning. [facility] atomoxetine 80 mg capsule 2022-07 0- 00:00: 00 Yes [id number] 80mg Take 1 capsule by mouth in the morning. [facility] naltrexone 50 mg tablet 2022-07 0 00:00: 00 Yes [id number] 50mg Take 1 tablet by mouth in the morning. [facility] ARIPiprazol e 15 mg tablet 2022-07 0 00:00: 00 Yes [id number] 15mg Take 1 tablet by mouth in the morning. [facility] atomoxetine 80 mg capsule 2022-07 0- 00:00: 00 Yes [id number] 80mg Take 1 capsule by mouth in the morning. [facility] naltrexone 50 mg tablet 2022-07 0 00:00: 00 Yes [id number] 50mg Take 1 tablet by mouth in the morning. [facility] ARIPiprazol e 15 mg tablet 2022-07 0 00:00: 00 Yes [id number] 15mg Take 1 tablet by mouth in the morning. [facility] atomoxetine 80 mg capsule 2022-07 0 00:00: 00 Yes [id number] 80mg Take 1 capsule by mouth in the morning. [facility] naltrexone 50 mg tablet 2022-07 0 00:00: 00 Yes [id number] 50mg Take 1 tablet by mouth in the morning. [facility] ARIPiprazol e 15 mg tablet 2022-07 0 00:00: 00 Yes [id number] 15mg Take 1 tablet by mouth in the morning. [facility] atomoxetine 80 mg capsule 2022-07 0 00:00: 00 Yes [id number] 80mg Take 1 capsule by mouth in the morning. [facility] naltrexone 50 mg tablet 2022-07 0 00:00: 00 Yes [id number] 50mg Take 1 tablet by mouth in the morning. [facility] ARIPiprazol e 15 mg tablet 2022-07 0 00:00: 00 Yes [id number] 15mg Take 1 tablet by mouth in the morning. [facility] atomoxetine 80 mg capsule 2022-07 0 00:00: 00 Yes [id number] 80mg Take 1 capsule by mouth in the morning. [facility] naltrexone 50 mg tablet 2022-07 0 00:00: 00 Yes [id number] 50mg Take 1 tablet by mouth in the morning. [facility] ARIPiprazol e 15 mg tablet 2022-07 0 00:00: 00 Yes [id number] 15mg Take 1 tablet by mouth in the morning. [facility] atomoxetine 80 mg capsule 2022-07 0-17 00:00: 00 Yes [id number] 80mg Take 1 capsule by mouth in the morning. [facility] naltrexone 50 mg tablet 2022-07 0- 00:00: 00 Yes [id number] 50mg Take 1 tablet by mouth in the morning. [facility] ARIPiprazol e 15 mg tablet 2022-07 0- 00:00: 00 Yes [id number] 15mg Take 1 tablet by mouth in the morning. [facility] atomoxetine 80 mg capsule 2022-07 0 00:00: 00 Yes [id number] 80mg Take 1 capsule by mouth in the morning. [facility] naltrexone 50 mg tablet 2022-07 0 00:00: 00 Yes [id number] 50mg Take 1 tablet by mouth in the morning. [facility] ARIPiprazol e 15 mg tablet 2022-07 0 00:00: 00 Yes [id number] 15mg Take 1 tablet by mouth in the morning. [facility] atomoxetine 80 mg capsule 2022-07 0 00:00: 00 Yes [id number] 80mg Take 1 capsule by mouth in the morning. [facility] naltrexone 50 mg tablet 2022-07 0 00:00: 00 Yes [id number] 50mg Take 1 tablet by mouth in the morning. [facility] ARIPiprazol e 15 mg tablet 2022-07 0 00:00: 00 Yes [id number] 15mg Take 1 tablet by mouth in the morning. [facility] atomoxetine 80 mg capsule 2022-07 0 00:00: 00 Yes [id number] 80mg Take 1 capsule by mouth in the morning. [facility] ARIPiprazol e 15 mg tablet 2022-07 0- 00:00: 00 Yes [id number] 15mg Take 1 tablet by mouth in the morning. [facility] atomoxetine 80 mg capsule 2022-07 0-17 00:00: 00 Yes [id number] 80mg Take 1 capsule by mouth in the morning. [facility] ARIPiprazol e 15 mg tablet 2022-07 0-17 00:00: 00 Yes [id number] 15mg Take 1 tablet by mouth in the morning. [facility] atomoxetine 80 mg capsule 2022-07 0-17 00:00: 00 Yes [id number] 80mg Take 1 capsule by mouth in the morning. [facility] Lamotrigine 50 mg tablet 2022-07 0-17 00:00: 00 07-18 05:59 :00 No [id number] 50mg Take 1 tablet by mouth in the morning for [address] [facility] Lamotrigine 50 mg tablet 2022-07 0-17 00:00: 00 07-18 05:59 :00 No [id number] 50mg Take 1 tablet by mouth in the morning for [address] [facility] Lamotrigine 50 mg tablet 2022-07 0-17 00:00: 00 07-18 05:59 :00 No [id number] 50mg Take 1 tablet by mouth in the morning for [address] [facility] Lamotrigine 50 mg tablet 2022-07 0-17 00:00: 00 07-18 05:59 :00 No [id number] 50mg Take 1 tablet by mouth in the morning for [address] [facility] Lamotrigine 50 mg tablet 2022-07 0-17 00:00: 00 07-18 05:59 :00 No [id number] 50mg Take 1 tablet by mouth in the morning for [address] [facility] Lamotrigine 50 mg tablet 2022-07 0-17 00:00: 00 07-18 05:59 :00 No [id number] 50mg Take 1 tablet by mouth in the morning for [address] [facility] Lamotrigine 50 mg tablet 2022-07 0-17 00:00: 00 07-18 05:59 :00 No [id number] 50mg Take 1 tablet by mouth in the morning for [address] [facility] Lamotrigine 50 mg tablet 2022-07 0-17 00:00: 00 07-18 05:59 :00 No [id number] 50mg Take 1 tablet by mouth in the morning for [address] [facility] Lamotrigine 50 mg tablet 2022- 0-17 00:00: 00 07-18 05:59 :00 No [id number] 50mg Take 1 tablet by mouth in the morning for [address] [facility] Lamotrigine 50 mg tablet 2022- 0-17 00:00: 00 07-18 05:59 :00 No [id number] 50mg Take 1 tablet by mouth in the morning for [address] [facility] Lamotrigine 50 mg tablet 2022- 0-17 00:00: 00 07-18 05:59 :00 No [id number] 50mg Take 1 tablet by mouth in the morning for [address] [facility] Lamotrigine 50 mg tablet 2022- 0-17 00:00: 00 07-18 05:59 :00 No [id number] 50mg Take 1 tablet by mouth in the morning for [address] [facility] Lamotrigine 50 mg tablet 2022- 0-17 00:00: 00 07-18 05:59 :00 No [id number] 50mg Take 1 tablet by mouth in the morning for [address] [facility] Lamotrigine 50 mg tablet 2022- 0-17 00:00: 00 07-18 05:59 :00 No [id number] 50mg Take 1 tablet by mouth in the morning for [address] [facility] Lamotrigine 50 mg tablet 2022- 0-17 00:00: 00 07-18 05:59 :00 No [id number] 50mg Take 1 tablet by mouth in the morning for [address] [facility] Lamotrigine 50 mg tablet 2022- 0-17 00:00: 00 07-18 05:59 :00 No [id number] 50mg Take 1 tablet by mouth in the morning for [address] [facility] ARIPiprazol e 15 mg tablet 2022-07 0-17 00:00: 00 07-04 00:00 :00 No [id number] 15mg Take 1 tablet by mouth in the morning. [facility] atomoxetine 80 mg capsule 2022-07 0-17 00:00: 00 07-04 00:00 :00 No [id number] 80mg Take 1 capsule by mouth in the morning. [facility] ARIPiprazol e 15 mg tablet 2022-07 0-17 00:00: 00 07-04 00:00 :00 No [id number] 15mg Take 1 tablet by mouth in the morning. [facility] atomoxetine 80 mg capsule 2022-07 0-17 00:00: 00 07-04 00:00 :00 No [id number] 80mg Take 1 capsule by mouth in the morning. [facility] Lamotrigine 50 mg tablet 2022-07 0-17 00:00: 00 06-20 00:00 :00 No [id number] 50mg Take 1 tablet by mouth in the morning for [address] [facility] naltrexone 50 mg tablet 2022-07 0-17 00:00: 00 06-20 00:00 :00 No [id number] 50mg Take 1 tablet by mouth in the morning. [facility] Lamotrigine 50 mg tablet 2022-07 0-17 00:00: 00 06-20 00:00 :00 No [id number] 50mg Take 1 tablet by mouth in the morning for [address] [facility] naltrexone 50 mg tablet 2022-07 0-17 00:00: 00 06-20 00:00 :00 No [id number] 50mg Take 1 tablet by mouth in the morning. [facility] Lamotrigine 50 mg tablet 2022-07 0-17 00:00: 00 06-20 00:00 :00 No [id number] 50mg Take 1 tablet by mouth in the morning for [address] [facility] naltrexone 50 mg tablet 2022-07 0-17 00:00: 00 06-20 00:00 :00 No [id number] 50mg Take 1 tablet by mouth in the morning. [facility] Lamotrigine 50 mg tablet 2022-07 0-17 00:00: 00 06-20 00:00 :00 No [id number] 50mg Take 1 tablet by mouth in the morning for [address] [facility] naltrexone 50 mg tablet 2022-1 0-17 00:00: 00 12- 00:00 :00 No [id number] 50mg Take 1 tablet by mouth in the morning. [facility] hydrOXYzine 25 mg tablet 3-0 7-25 00:00: 00 Yes [id number] 25mg Take 1 tablet by mouth every 6 (six) hours as needed for Anxiety. [facility] hydrOXYzine 25 mg tablet 3-0 7-25 00:00: 00 Yes [id number] 25mg Take 1 tablet by mouth every 6 (six) hours as needed for Anxiety. [facility] hydrOXYzine 25 mg tablet 3-0 7-25 00:00: 00 Yes [id number] 25mg Take 1 tablet by mouth every 6 (six) hours as needed for Anxiety. [facility] hydrOXYzine 25 mg tablet 3-0 7-25 00:00: 00 Yes [id number] 25mg Take 1 tablet by mouth every 6 (six) hours as needed for Anxiety. [facility] hydrOXYzine 25 mg tablet 3-0 7-25 00:00: 00 Yes [id number] 25mg Take 1 tablet by mouth every 6 (six) hours as needed for Anxiety. [facility] hydrOXYzine 25 mg tablet 3-0 7-25 00:00: 00 Yes [id number] 25mg Take 1 tablet by mouth every 6 (six) hours as needed for Anxiety. [facility] hydrOXYzine 25 mg tablet 3-0 7-25 00:00: 00 Yes [id number] 25mg Take 1 tablet by mouth every 6 (six) hours as needed for Anxiety. [facility] hydrOXYzine 25 mg tablet 3-0 7-25 00:00: 00 Yes [id number] 25mg Take 1 tablet by mouth every 6 (six) hours as needed for Anxiety. [facility] hydrOXYzine 25 mg tablet 3-0 7-25 00:00: 00 Yes [id number] 25mg Take 1 tablet by mouth every 6 (six) hours as needed for Anxiety. [facility] hydrOXYzine 25 mg tablet 2023-0 7-25 00:00: 00 Yes [id number] 25mg Take 1 tablet by mouth every 6 (six) hours as needed for Anxiety. [facility] hydrOXYzine 25 mg tablet 2023-0 7-25 00:00: 00 Yes [id number] 25mg Take 1 tablet by mouth every 6 (six) hours as needed for Anxiety. [facility] hydrOXYzine 25 mg tablet 2023-0 7-25 00:00: 00 Yes [id number] 25mg Take 1 tablet by mouth every 6 (six) hours as needed for Anxiety. [facility] hydrOXYzine 25 mg tablet 2023-0 7-25 00:00: 00 Yes [id number] 25mg Take 1 tablet by mouth every 6 (six) hours as needed for Anxiety. [facility] hydrOXYzine 25 mg tablet 2023-0 7-25 00:00: 00 Yes [id number] 25mg Take 1 tablet by mouth every 6 (six) hours as needed for Anxiety. [facility] hydrOXYzine 25 mg tablet 3-0 7-25 00:00: 00 Yes [id number] 25mg Take 1 tablet by mouth every 6 (six) hours as needed for Anxiety. [facility] hydrOXYzine 25 mg tablet 3-0 7-25 00:00: 00 Yes [id number] 25mg Take 1 tablet by mouth every 6 (six) hours as needed for Anxiety. [facility] hydrOXYzine 25 mg tablet 2023-0 7-25 00:00: 00 Yes [id number] 25mg Take 1 tablet by mouth every 6 (six) hours as needed for Anxiety. [facility] hydrOXYzine 25 mg tablet 2023-0 7-25 00:00: 00 Yes [id number] 25mg Take 1 tablet by mouth every 6 (six) hours as needed for Anxiety. [facility] hydrOXYzine 25 mg tablet 2023-0 7-25 00:00: 00 Yes [id number] 25mg Take 1 tablet by mouth every 6 (six) hours as needed for Anxiety. [facility] hydrOXYzine 25 mg tablet 2023-0 7-25 00:00: 00 Yes [id number] 25mg Take 1 tablet by mouth every 6 (six) hours as needed for Anxiety. [facility] hydrOXYzine 25 mg tablet 2023-0 7-25 00:00: 00 Yes [id number] 25mg Take 1 tablet by mouth every 6 (six) hours as needed for Anxiety. [facility] hydrOXYzine 25 mg tablet 2023-0 7-25 00:00: 00 Yes [id number] 25mg Take 1 tablet by mouth every 6 (six) hours as needed for Anxiety. [facility] hydrOXYzine 25 mg tablet 2023-0 7-25 00:00: 00 Yes [id number] 25mg Take 1 tablet by mouth every 6 (six) hours as needed for Anxiety. [facility] hydrOXYzine 25 mg tablet 3-0 7-25 00:00: 00 Yes [id number] 25mg Take 1 tablet by mouth every 6 (six) hours as needed for Anxiety. [facility] hydrOXYzine 25 mg tablet 2023-0 7-25 00:00: 00 Yes [id number] 25mg Take 1 tablet by mouth every 6 (six) hours as needed for Anxiety. [facility] hydrOXYzine 25 mg tablet 3-0 7-25 00:00: 00 Yes [id number] 25mg Take 1 tablet by mouth every 6 (six) hours as needed for Anxiety. [facility] hydrOXYzine 25 mg tablet 3-0 7-25 00:00: 00 Yes [id number] 25mg Take 1 tablet by mouth every 6 (six) hours as needed for Anxiety. [facility] hydrOXYzine 25 mg tablet 2023-0 7-25 00:00: 00 Yes [id number] 25mg Take 1 tablet by mouth every 6 (six) hours as needed for Anxiety. [facility] hydrOXYzine 25 mg tablet 2023-0 7-25 00:00: 00 Yes [id number] 25mg Take 1 tablet by mouth every 6 (six) hours as needed for Anxiety. [facility] hydrOXYzine 25 mg tablet 2023-0 7-25 00:00: 00 Yes [id number] 25mg Take 1 tablet by mouth every 6 (six) hours as needed for Anxiety. [facility] hydrOXYzine 25 mg tablet 2023-0 7-25 00:00: 00 Yes [id number] 25mg Take 1 tablet by mouth every 6 (six) hours as needed for Anxiety. [facility] hydrOXYzine 25 mg tablet 2023-0 7-25 00:00: 00 Yes [id number] 25mg Take 1 tablet by mouth every 6 (six) hours as needed for Anxiety. [facility] hydrOXYzine 25 mg tablet 2023-0 7-25 00:00: 00 Yes [id number] 25mg Take 1 tablet by mouth every 6 (six) hours as needed for Anxiety. [facility] hydrOXYzine 25 mg tablet 2023-0 7-25 00:00: 00 Yes [id number] 25mg Take 1 tablet by mouth every 6 (six) hours as needed for Anxiety. [facility] hydrOXYzine 25 mg tablet 3-0 7-25 00:00: 00 Yes [id number] 25mg Take 1 tablet by mouth every 6 (six) hours as needed for Anxiety. [facility] hydrOXYzine 25 mg tablet 2023-0 7-25 00:00: 00 Yes [id number] 25mg Take 1 tablet by mouth every 6 (six) hours as needed for Anxiety. [facility] hydrOXYzine 25 mg tablet 2023-0 7-25 00:00: 00 Yes [id number] 25mg Take 1 tablet by mouth every 6 (six) hours as needed for Anxiety. [facility] hydrOXYzine 25 mg tablet 2023-0 7-25 00:00: 00 Yes [id number] 25mg Take 1 tablet by mouth every 6 (six) hours as needed for Anxiety. [facility] hydrOXYzine 25 mg tablet 2023-0 7-25 00:00: 00 Yes [id number] 25mg Take 1 tablet by mouth every 6 (six) hours as needed for Anxiety. [facility] hydrOXYzine 25 mg tablet 2023-0 7-25 00:00: 00 Yes [id number] 25mg Take 1 tablet by mouth every 6 (six) hours as needed for Anxiety. [facility] hydrOXYzine 25 mg tablet 2023-0 7-25 00:00: 00 Yes [id number] 25mg Take 1 tablet by mouth every 6 (six) hours as needed for Anxiety. [facility] hydrOXYzine 25 mg tablet 0 01-24 00:00: 00 07-13 00:00 :00 No [id number] 25mg Take 1 tablet by mouth every 6 (six) hours as needed for Anxiety. [facility] hydrOXYzine 25 mg tablet 0 01-24 00:00: 00 07-13 00:00 :00 No [id number] 25mg Take 1 tablet by mouth every 6 (six) hours as needed for Anxiety. [facility] atomoxetine 80 mg capsule 01-18 00:00: 00 Yes [id number] 80mg Take 1 capsule by mouth in the morning. [facility] ARIPiprazol e 15 mg tablet 0 01-18 00:00: 00 Yes [id number] 15mg Take 1 tablet by mouth in the morning. [facility] lamoTRIgine 25 mg tablet 0 01-18 00:00: 00 Yes [id number] 25mg Take 1 tablet by mouth in the morning. [facility] naltrexone 50 mg tablet 0 01-18 00:00: 00 Yes [id number] 50mg Take 1 tablet by mouth in the morning. [facility] atomoxetine 80 mg capsule 0 01-18 00:00: 00 Yes [id number] 80mg Take 1 capsule by mouth in the morning. [facility] ARIPiprazol e 15 mg tablet 0 01-18 00:00: 00 Yes [id number] 15mg Take 1 tablet by mouth in the morning. [facility] lamoTRIgine 25 mg tablet 0 01-18 00:00: 00 Yes [id number] 25mg Take 1 tablet by mouth in the morning. [facility] naltrexone 50 mg tablet 0 01-18 00:00: 00 Yes [id number] 50mg Take 1 tablet by mouth in the morning. [facility] atomoxetine 80 mg capsule 0 01-18 00:00: 00 Yes [id number] 80mg Take 1 capsule by mouth in the morning. [facility] ARIPiprazol e 15 mg tablet 0 01-18 00:00: 00 Yes [id number] 15mg Take 1 tablet by mouth in the morning. [facility] lamoTRIgine 25 mg tablet 2022-0 01-18 00:00: 00 Yes [id number] 25mg Take 1 tablet by mouth in the morning. [facility] naltrexone 50 mg tablet 2022-0 01-18 00:00: 00 Yes [id number] 50mg Take 1 tablet by mouth in the morning. [facility] atomoxetine 80 mg capsule 2022-0 01-18 00:00: 00 Yes [id number] 80mg Take 1 capsule by mouth in the morning. [facility] ARIPiprazol e 15 mg tablet 2022-0 01-18 00:00: 00 Yes [id number] 15mg Take 1 tablet by mouth in the morning. [facility] lamoTRIgine 25 mg tablet 0 01-18 00:00: 00 Yes [id number] 25mg Take 1 tablet by mouth in the morning. [facility] naltrexone 50 mg tablet 0 01-18 00:00: 00 Yes [id number] 50mg Take 1 tablet by mouth in the morning. [facility] atomoxetine 80 mg capsule 0 01-18 00:00: 00 Yes [id number] 80mg Take 1 capsule by mouth in the morning. [facility] ARIPiprazol e 15 mg tablet 0 01-18 00:00: 00 Yes [id number] 15mg Take 1 tablet by mouth in the morning. [facility] lamoTRIgine 25 mg tablet 0 01-18 00:00: 00 Yes [id number] 25mg Take 1 tablet by mouth in the morning. [facility] naltrexone 50 mg tablet 2022-0 01-18 00:00: 00 Yes [id number] 50mg Take 1 tablet by mouth in the morning. [facility] atomoxetine 80 mg capsule 0 01-18 00:00: 00 Yes [id number] 80mg Take 1 capsule by mouth in the morning. [facility] ARIPiprazol e 15 mg tablet 2022-0 01-18 00:00: 00 Yes [id number] 15mg Take 1 tablet by mouth in the morning. [facility] lamoTRIgine 25 mg tablet 0 01-18 00:00: 00 Yes [id number] 25mg Take 1 tablet by mouth in the morning. [facility] naltrexone 50 mg tablet 0 01-18 00:00: 00 Yes [id number] 50mg Take 1 tablet by mouth in the morning. [facility] atomoxetine 80 mg capsule 0 01-18 00:00: 00 Yes [id number] 80mg Take 1 capsule by mouth in the morning. [facility] ARIPiprazol e 15 mg tablet 01-18 00:00: 00 Yes [id number] 15mg Take 1 tablet by mouth in the morning. [facility] lamoTRIgine 25 mg tablet 01-18 00:00: 00 Yes [id number] 25mg Take 1 tablet by mouth in the morning. [facility] naltrexone 50 mg tablet 01-18 00:00: 00 Yes [id number] 50mg Take 1 tablet by mouth in the morning. [facility] atomoxetine 80 mg capsule 01-18 00:00: 00 Yes [id number] 80mg Take 1 capsule by mouth in the morning. [facility] ARIPiprazol e 15 mg tablet 01-18 00:00: 00 Yes [id number] 15mg Take 1 tablet by mouth in the morning. [facility] lamoTRIgine 25 mg tablet 01-18 00:00: 00 Yes [id number] 25mg Take 1 tablet by mouth in the morning. [facility] naltrexone 50 mg tablet 0 01-18 00:00: 00 Yes [id number] 50mg Take 1 tablet by mouth in the morning. [facility] atomoxetine 80 mg capsule 0 01-18 00:00: 00 Yes [id number] 80mg Take 1 capsule by mouth in the morning. [facility] ARIPiprazol e 15 mg tablet 2022-0 01-18 00:00: 00 Yes [id number] 15mg Take 1 tablet by mouth in the morning. [facility] lamoTRIgine 25 mg tablet 0 01-18 00:00: 00 Yes [id number] 25mg Take 1 tablet by mouth in the morning. [facility] naltrexone 50 mg tablet 0 01-18 00:00: 00 Yes [id number] 50mg Take 1 tablet by mouth in the morning. [facility] atomoxetine 80 mg capsule 0 01-18 00:00: 00 Yes [id number] 80mg Take 1 capsule by mouth in the morning. [facility] ARIPiprazol e 15 mg tablet 0 01-18 00:00: 00 Yes [id number] 15mg Take 1 tablet by mouth in the morning. [facility] lamoTRIgine 25 mg tablet 0 01-18 00:00: 00 Yes [id number] 25mg Take 1 tablet by mouth in the morning. [facility] naltrexone 50 mg tablet 0 01-18 00:00: 00 Yes [id number] 50mg Take 1 tablet by mouth in the morning. [facility] atomoxetine 80 mg capsule 0 01-18 00:00: 00 Yes [id number] 80mg Take 1 capsule by mouth in the morning. [facility] ARIPiprazol e 15 mg tablet 0 01-18 00:00: 00 Yes [id number] 15mg Take 1 tablet by mouth in the morning. [facility] lamoTRIgine 25 mg tablet 0 01-18 00:00: 00 Yes [id number] 25mg Take 1 tablet by mouth in the morning. [facility] naltrexone 50 mg tablet 0 01-18 00:00: 00 Yes [id number] 50mg Take 1 tablet by mouth in the morning. [facility] atomoxetine 80 mg capsule 0 01-18 00:00: 00 Yes [id number] 80mg Take 1 capsule by mouth in the morning. [facility] ARIPiprazol e 15 mg tablet 2022-0 01-18 00:00: 00 Yes [id number] 15mg Take 1 tablet by mouth in the morning. [facility] lamoTRIgine 25 mg tablet 2022-0 01-18 00:00: 00 Yes [id number] 25mg Take 1 tablet by mouth in the morning. [facility] naltrexone 50 mg tablet 2022-0 01-18 00:00: 00 Yes [id number] 50mg Take 1 tablet by mouth in the morning. [facility] atomoxetine 80 mg capsule 2022-0 01-18 00:00: 00 Yes [id number] 80mg Take 1 capsule by mouth in the morning. [facility] ARIPiprazol e 15 mg tablet 2022-0 01-18 00:00: 00 Yes [id number] 15mg Take 1 tablet by mouth in the morning. [facility] lamoTRIgine 25 mg tablet 2022-0 01-18 00:00: 00 Yes [id number] 25mg Take 1 tablet by mouth in the morning. [facility] naltrexone 50 mg tablet 2022-0 01-18 00:00: 00 Yes [id number] 50mg Take 1 tablet by mouth in the morning. [facility] atomoxetine 80 mg capsule 2022-0 01-18 00:00: 00 Yes [id number] 80mg Take 1 capsule by mouth in the morning. [facility] ARIPiprazol e 15 mg tablet 2022-0 01-18 00:00: 00 Yes [id number] 15mg Take 1 tablet by mouth in the morning. [facility] lamoTRIgine 25 mg tablet 2022-0 01-18 00:00: 00 Yes [id number] 25mg Take 1 tablet by mouth in the morning. [facility] naltrexone 50 mg tablet 2022-0 01-18 00:00: 00 Yes [id number] 50mg Take 1 tablet by mouth in the morning. [facility] atomoxetine 80 mg capsule 2022-0 01-18 00:00: 00 Yes [id number] 80mg Take 1 capsule by mouth in the morning. [facility] ARIPiprazol e 15 mg tablet 2022-0 01-18 00:00: 00 Yes [id number] 15mg Take 1 tablet by mouth in the morning. [facility] lamoTRIgine 25 mg tablet 2022-0 01-18 00:00: 00 Yes [id number] 25mg Take 1 tablet by mouth in the morning. [facility] naltrexone 50 mg tablet 0 01-18 00:00: 00 Yes [id number] 50mg Take 1 tablet by mouth in the morning. [facility] atomoxetine 80 mg capsule 0 01-18 00:00: 00 Yes [id number] 80mg Take 1 capsule by mouth in the morning. [facility] ARIPiprazol e 15 mg tablet 2022-0 01-18 00:00: 00 Yes [id number] 15mg Take 1 tablet by mouth in the morning. [facility] lamoTRIgine 25 mg tablet 0 01-18 00:00: 00 Yes [id number] 25mg Take 1 tablet by mouth in the morning. [facility] naltrexone 50 mg tablet 0 01-18 00:00: 00 Yes [id number] 50mg Take 1 tablet by mouth in the morning. [facility] atomoxetine 80 mg capsule 0 01-18 00:00: 00 Yes [id number] 80mg Take 1 capsule by mouth in the morning. [facility] ARIPiprazol e 15 mg tablet 0 01-18 00:00: 00 Yes [id number] 15mg Take 1 tablet by mouth in the morning. [facility] lamoTRIgine 25 mg tablet 0 01-18 00:00: 00 Yes [id number] 25mg Take 1 tablet by mouth in the morning. [facility] naltrexone 50 mg tablet 0 01-18 00:00: 00 Yes [id number] 50mg Take 1 tablet by mouth in the morning. [facility] atomoxetine 80 mg capsule 0 01-18 00:00: 00 Yes [id number] 80mg Take 1 capsule by mouth in the morning. [facility] ARIPiprazol e 15 mg tablet 0 01-18 00:00: 00 Yes [id number] 15mg Take 1 tablet by mouth in the morning. [facility] lamoTRIgine 25 mg tablet 2022-0 01-18 00:00: 00 Yes [id number] 25mg Take 1 tablet by mouth in the morning. [facility] naltrexone 50 mg tablet 01-18 00:00: 00 Yes [id number] 50mg Take 1 tablet by mouth in the morning. [facility] atomoxetine 80 mg capsule 01-18 00:00: 00 Yes [id number] 80mg Take 1 capsule by mouth in the morning. [facility] ARIPiprazol e 15 mg tablet 01-18 00:00: 00 Yes [id number] 15mg Take 1 tablet by mouth in the morning. [facility] lamoTRIgine 25 mg tablet 01-18 00:00: 00 Yes [id number] 25mg Take 1 tablet by mouth in the morning. [facility] naltrexone 50 mg tablet 01-18 00:00: 00 Yes [id number] 50mg Take 1 tablet by mouth in the morning. [facility] atomoxetine 80 mg capsule 01-18 00:00: 00 Yes [id number] 80mg Take 1 capsule by mouth in the morning. [facility] ARIPiprazol e 15 mg tablet 01-18 00:00: 00 Yes [id number] 15mg Take 1 tablet by mouth in the morning. [facility] lamoTRIgine 25 mg tablet 01-18 00:00: 00 Yes [id number] 25mg Take 1 tablet by mouth in the morning. [facility] naltrexone 50 mg tablet 01-18 00:00: 00 Yes [id number] 50mg Take 1 tablet by mouth in the morning. [facility] atomoxetine 80 mg capsule 01-18 00:00: 00 04-18 00:00 :00 No [id number] 80mg Take 1 capsule by mouth in the morning. [facility] ARIPiprazol e 15 mg tablet 01-18 00:00: 00 04-18 00:00 :00 No [id number] 15mg Take 1 tablet by mouth in the morning. [facility] lamoTRIgine 25 mg tablet 0 01-18 00:00: 00 04-18 00:00 :00 No [id number] 25mg Take 1 tablet by mouth in the morning. [facility] naltrexone 50 mg tablet 2022-0 7-19 00:00: 00 04-18 00:00 :00 No [id number] 50mg Take 1 tablet by mouth in the morning. [facility] atomoxetine 80 mg capsule 2022-0 7-19 00:00: 00 04-18 00:00 :00 No [id number] 80mg Take 1 capsule by mouth in the morning. [facility] ARIPiprazol e 15 mg tablet 0 -19 00:00: 00 04-18 00:00 :00 No [id number] 15mg Take 1 tablet by mouth in the morning. [facility] lamoTRIgine 25 mg tablet 2022-0 - 00:00: 00 04-18 00:00 :00 No [id number] 25mg Take 1 tablet by mouth in the morning. [facility] naltrexone 50 mg tablet 2022-0 01-18 00:00: 00 04-18 00:00 :00 No [id number] 50mg Take 1 tablet by mouth in the morning. [facility] atomoxetine 80 mg capsule 0 01-18 00:00: 00 04-18 00:00 :00 No [id number] 80mg Take 1 capsule by mouth in the morning. [facility] ARIPiprazol e 15 mg tablet 2022-0 19 00:00: 00 04-18 00:00 :00 No [id number] 15mg Take 1 tablet by mouth in the morning. [facility] lamoTRIgine 25 mg tablet 2022-0 -19 00:00: 00 04-18 00:00 :00 No [id number] 25mg Take 1 tablet by mouth in the morning. [facility] naltrexone 50 mg tablet 2022-0 7-19 00:00: 00 04-18 00:00 :00 No [id number] 50mg Take 1 tablet by mouth in the morning. [facility] atomoxetine 80 mg capsule 2022-0 7-19 00:00: 00 04-18 00:00 :00 No [id number] 80mg Take 1 capsule by mouth in the morning. [facility] ARIPiprazol e 15 mg tablet 0 01-18 00:00: 00 04-18 00:00 :00 No [id number] 15mg Take 1 tablet by mouth in the morning. [facility] lamoTRIgine 25 mg tablet 0 01-18 00:00: 00 04-18 00:00 :00 No [id number] 25mg Take 1 tablet by mouth in the morning. [facility] naltrexone 50 mg tablet 01-18 00:00: 00 04-18 00:00 :00 No [id number] 50mg Take 1 tablet by mouth in the morning. [facility] atomoxetine 80 mg capsule 01-18 00:00: 00 04-18 00:00 :00 No [id number] 80mg Take 1 capsule by mouth in the morning. [facility] ARIPiprazol e 15 mg tablet 01-18 00:00: 00 04-18 00:00 :00 No [id number] 15mg Take 1 tablet by mouth in the morning. [facility] lamoTRIgine 25 mg tablet 01-18 00:00: 00 04-18 00:00 :00 No [id number] 25mg Take 1 tablet by mouth in the morning. [facility] naltrexone 50 mg tablet 0 01-18 00:00: 00 04-18 00:00 :00 No [id number] 50mg Take 1 tablet by mouth in the morning. [facility] ARIPiprazol e 15 mg tablet 5- 00:00: 00 Yes [id number] 15mg Take 1 tablet by mouth in the morning. [facility] lamoTRIgine 25 mg tablet 0 5- 00:00: 00 Yes [id number] 25mg Take 1 tablet by mouth in the morning. [facility] naltrexone 50 mg tablet 0 5- 00:00: 00 Yes [id number] 50mg Take 1 tablet by mouth in the morning. [facility] ARIPiprazol e 15 mg tablet 10-31 00:00: 00 Yes [id number] 15mg Take 1 tablet by mouth in the morning. [facility] lamoTRIgine 25 mg tablet 10-31 00:00: 00 Yes [id number] 25mg Take 1 tablet by mouth in the morning. [facility] naltrexone 50 mg tablet 10-31 00:00: 00 Yes [id number] 50mg Take 1 tablet by mouth in the morning. [facility] ARIPiprazol e 15 mg tablet 10-31 00:00: 00 Yes [id number] 15mg Take 1 tablet by mouth in the morning. [facility] lamoTRIgine 25 mg tablet 10-31 00:00: 00 Yes [id number] 25mg Take 1 tablet by mouth in the morning. [facility] naltrexone 50 mg tablet 10-31 00:00: 00 Yes [id number] 50mg Take 1 tablet by mouth in the morning. [facility] ARIPiprazol e 15 mg tablet 10-31 00:00: 00 Yes [id number] 15mg Take 1 tablet by mouth in the morning. [facility] lamoTRIgine 25 mg tablet 10-31 00:00: 00 Yes [id number] 25mg Take 1 tablet by mouth in the morning. [facility] naltrexone 50 mg tablet 10-31 00:00: 00 Yes [id number] 50mg Take 1 tablet by mouth in the morning. [facility] ARIPiprazol e 15 mg tablet 10-31 00:00: 00 Yes [id number] 15mg Take 1 tablet by mouth in the morning. [facility] lamoTRIgine 25 mg tablet 10-31 00:00: 00 Yes [id number] 25mg Take 1 tablet by mouth in the morning. [facility] naltrexone 50 mg tablet 10-31 00:00: 00 Yes [id number] 50mg Take 1 tablet by mouth in the morning. [facility] ARIPiprazol e 15 mg tablet 10-31 00:00: 00 Yes [id number] 15mg Take 1 tablet by mouth in the morning. [facility] lamoTRIgine 25 mg tablet 10-31 00:00: 00 Yes [id number] 25mg Take 1 tablet by mouth in the morning. [facility] naltrexone 50 mg tablet 10-31 00:00: 00 Yes [id number] 50mg Take 1 tablet by mouth in the morning. [facility] ARIPiprazol e 15 mg tablet 10-31 00:00: 00 Yes [id number] 15mg Take 1 tablet by mouth in the morning. [facility] lamoTRIgine 25 mg tablet 10-31 00:00: 00 Yes [id number] 25mg Take 1 tablet by mouth in the morning. [facility] naltrexone 50 mg tablet 10-31 00:00: 00 Yes [id number] 50mg Take 1 tablet by mouth in the morning. [facility] ARIPiprazol e 15 mg tablet 10-31 00:00: 00 Yes [id number] 15mg Take 1 tablet by mouth in the morning. [facility] lamoTRIgine 25 mg tablet 10-31 00:00: 00 Yes [id number] 25mg Take 1 tablet by mouth in the morning. [facility] naltrexone 50 mg tablet 10-31 00:00: 00 Yes [id number] 50mg Take 1 tablet by mouth in the morning. [facility] ARIPiprazol e 15 mg tablet 10-31 00:00: 00 Yes [id number] 15mg Take 1 tablet by mouth in the morning. [facility] lamoTRIgine 25 mg tablet 10-31 00:00: 00 Yes [id number] 25mg Take 1 tablet by mouth in the morning. [facility] naltrexone 50 mg tablet 10-31 00:00: 00 Yes [id number] 50mg Take 1 tablet by mouth in the morning. [facility] ARIPiprazol e 15 mg tablet 10-31 00:00: 00 Yes [id number] 15mg Take 1 tablet by mouth in the morning. [facility] lamoTRIgine 25 mg tablet 10-31 00:00: 00 Yes [id number] 25mg Take 1 tablet by mouth in the morning. [facility] naltrexone 50 mg tablet 10-31 00:00: 00 Yes [id number] 50mg Take 1 tablet by mouth in the morning. [facility] ARIPiprazol e 15 mg tablet 10-31 00:00: 00 Yes [id number] 15mg Take 1 tablet by mouth in the morning. [facility] lamoTRIgine 25 mg tablet 10-31 00:00: 00 Yes [id number] 25mg Take 1 tablet by mouth in the morning. [facility] naltrexone 50 mg tablet 10-31 00:00: 00 Yes [id number] 50mg Take 1 tablet by mouth in the morning. [facility] ARIPiprazol e 15 mg tablet 10-31 00:00: 00 Yes [id number] 15mg Take 1 tablet by mouth in the morning. [facility] lamoTRIgine 25 mg tablet 10-31 00:00: 00 Yes [id number] 25mg Take 1 tablet by mouth in the morning. [facility] naltrexone 50 mg tablet 10-31 00:00: 00 Yes [id number] 50mg Take 1 tablet by mouth in the morning. [facility] ARIPiprazol e 15 mg tablet 10-31 00:00: 00 Yes [id number] 15mg Take 1 tablet by mouth in the morning. [facility] lamoTRIgine 25 mg tablet 0 10-31 00:00: 00 Yes [id number] 25mg Take 1 tablet by mouth in the morning. [facility] naltrexone 50 mg tablet 10-31 00:00: 00 Yes [id number] 50mg Take 1 tablet by mouth in the morning. [facility] ARIPiprazol e 15 mg tablet 10-31 00:00: 00 Yes [id number] 15mg Take 1 tablet by mouth in the morning. [facility] lamoTRIgine 25 mg tablet 10-31 00:00: 00 Yes [id number] 25mg Take 1 tablet by mouth in the morning. [facility] naltrexone 50 mg tablet 10-31 00:00: 00 Yes [id number] 50mg Take 1 tablet by mouth in the morning. [facility] ARIPiprazol e 15 mg tablet 10-31 00:00: 00 Yes [id number] 15mg Take 1 tablet by mouth in the morning. [facility] lamoTRIgine 25 mg tablet 10-31 00:00: 00 Yes [id number] 25mg Take 1 tablet by mouth in the morning. [facility] naltrexone 50 mg tablet 10-31 00:00: 00 Yes [id number] 50mg Take 1 tablet by mouth in the morning. [facility] ARIPiprazol e 15 mg tablet 10-31 00:00: 00 Yes [id number] 15mg Take 1 tablet by mouth in the morning. [facility] lamoTRIgine 25 mg tablet 10-31 00:00: 00 Yes [id number] 25mg Take 1 tablet by mouth in the morning. [facility] naltrexone 50 mg tablet 10-31 00:00: 00 Yes [id number] 50mg Take 1 tablet by mouth in the morning. [facility] ARIPiprazol e 15 mg tablet 10-31 00:00: 00 Yes [id number] 15mg Take 1 tablet by mouth in the morning. [facility] lamoTRIgine 25 mg tablet 10-31 00:00: 00 Yes [id number] 25mg Take 1 tablet by mouth in the morning. [facility] naltrexone 50 mg tablet 10-31 00:00: 00 Yes [id number] 50mg Take 1 tablet by mouth in the morning. [facility] ARIPiprazol e 15 mg tablet 10-31 00:00: 00 Yes [id number] 15mg Take 1 tablet by mouth in the morning. [facility] lamoTRIgine 25 mg tablet 10-31 00:00: 00 Yes [id number] 25mg Take 1 tablet by mouth in the morning. [facility] naltrexone 50 mg tablet 10-31 00:00: 00 Yes [id number] 50mg Take 1 tablet by mouth in the morning. [facility] ARIPiprazol e 15 mg tablet 10-31 00:00: 00 Yes [id number] 15mg Take 1 tablet by mouth in the morning. [facility] lamoTRIgine 25 mg tablet 10-31 00:00: 00 Yes [id number] 25mg Take 1 tablet by mouth in the morning. [facility] naltrexone 50 mg tablet 10-31 00:00: 00 Yes [id number] 50mg Take 1 tablet by mouth in the morning. [facility] ARIPiprazol e 15 mg tablet 10-31 00:00: 00 Yes [id number] 15mg Take 1 tablet by mouth in the morning. [facility] lamoTRIgine 25 mg tablet 10-31 00:00: 00 Yes [id number] 25mg Take 1 tablet by mouth in the morning. [facility] naltrexone 50 mg tablet 10-31 00:00: 00 Yes [id number] 50mg Take 1 tablet by mouth in the morning. [facility] ARIPiprazol e 15 mg tablet 10-31 00:00: 00 Yes [id number] 15mg Take 1 tablet by mouth in the morning. [facility] lamoTRIgine 25 mg tablet 0 10-31 00:00: 00 Yes [id number] 25mg Take 1 tablet by mouth in the morning. [facility] naltrexone 50 mg tablet 10-31 00:00: 00 Yes [id number] 50mg Take 1 tablet by mouth in the morning. [facility] ARIPiprazol e 15 mg tablet 0 10-31 00:00: 00 Yes [id number] 15mg Take 1 tablet by mouth in the morning. [facility] lamoTRIgine 25 mg tablet 0 10-31 00:00: 00 Yes [id number] 25mg Take 1 tablet by mouth in the morning. [facility] naltrexone 50 mg tablet 10-31 00:00: 00 Yes [id number] 50mg Take 1 tablet by mouth in the morning. [facility] ARIPiprazol e 15 mg tablet 10-31 00:00: 00 Yes [id number] 15mg Take 1 tablet by mouth in the morning. [facility] lamoTRIgine 25 mg tablet 10-31 00:00: 00 Yes [id number] 25mg Take 1 tablet by mouth in the morning. [facility] naltrexone 50 mg tablet 10-31 00:00: 00 Yes [id number] 50mg Take 1 tablet by mouth in the morning. [facility] atomoxetine 80 mg capsule 0 10-31 00:00: 00 01-30 04:59 :00 No [id number] 80mg Take 1 capsule by mouth in the morning for [address] [facility] atomoxetine 80 mg capsule 0 10-31 00:00: 00 01-30 04:59 :00 No [id number] 80mg Take 1 capsule by mouth in the morning for [address] [facility] atomoxetine 80 mg capsule 2022-0 10-31 00:00: 00 01-30 04:59 :00 No [id number] 80mg Take 1 capsule by mouth in the morning for [address] [facility] atomoxetine 80 mg capsule 2022-0 10-31 00:00: 00 01-30 04:59 :00 No [id number] 80mg Take 1 capsule by mouth in the morning for [address] [facility] atomoxetine 80 mg capsule 2022-0 10-31 00:00: 00 01-30 04:59 :00 No [id number] 80mg Take 1 capsule by mouth in the morning for [address] [facility] atomoxetine 80 mg capsule 2022-0 10-31 00:00: 00 01-30 04:59 :00 No [id number] 80mg Take 1 capsule by mouth in the morning for 90 days. [facility] mg capsule 3-0 5-01 00:00: 00 01-30 04:59 :00 No [id number] 80mg Take 1 capsule by mouth in the morning for 90 days. [facility] 80 mg capsule 3-0 5- 00:00: 00 01-30 04:59 :00 No [id number] 80mg Take 1 capsule by mouth in the morning for 90 days. [facility] atom[facility] 80 mg capsule 2022-0 5- 00:00: 00 01-30 04:59 :00 No [id number] 80mg Take 1 capsule by mouth in the morning for [address] [facility] atomoxetine 80 mg capsule 2022-0 5- 00:00: 00 01-30 04:59 :00 No [id number] 80mg Take 1 capsule by mouth in the morning for 90 days. [facility] 80 mg capsule 3-0 5- 00:00: 00 01-30 04:59 :00 No [id number] 80mg Take 1 capsule by mouth in the morning for [address] [facility] atomoxetine 80 mg capsule 2022-0 5- 00:00: 00 01-30 04:59 :00 No [id number] 80mg Take 1 capsule by mouth in the morning for [address] [facility] atomoxetine 80 mg capsule 2022-0 5-01 00:00: 00 01-30 04:59 :00 No [id number] 80mg Take 1 capsule by mouth in the morning for [address] [facility] atomoxetine 80 mg capsule 3-0 5-01 00:00: 00 01-30 04:59 :00 No [id number] 80mg Take 1 capsule by mouth in the morning for 90 days. [facility] atomox[facility] 80 mg capsule 3-0 5-01 00:00: 00 01-30 04:59 :00 No [id number] 80mg Take 1 capsule by mouth in the morning for [address] [facility] atomoxetine 80 mg capsule 2022-0 5- 00:00: 00 01-30 04:59 :00 No [id number] 80mg Take 1 capsule by mouth in the morning for [address] [facility] atomoxetine 80 mg capsule 2022-0 5- 00:00: 00 01-30 04:59 :00 No [id number] 80mg Take 1 capsule by mouth in the morning for [address] [facility] atomoxetine 80 mg capsule 0 5- 00:00: 00 01-30 04:59 :00 No [id number] 80mg Take 1 capsule by mouth in the morning for [address] [facility] atomoxetine 80 mg capsule 0 5- 00:00: 00 01-30 04:59 :00 No [id number] 80mg Take 1 capsule by mouth in the morning for [address] [facility] atomoxetine 80 mg capsule 2022-0 5- 00:00: 00 01-30 04:59 :00 No [id number] 80mg Take 1 capsule by mouth in the morning for [address] [facility] atomoxetine 80 mg capsule 0 10-31 00:00: 00 01-30 04:59 :00 No [id number] 80mg Take 1 capsule by mouth in the morning for [address] [facility] atomoxetine 80 mg capsule 2022-0 5- 00:00: 00 01-30 04:59 :00 No [id number] 80mg Take 1 capsule by mouth in the morning for [address] [facility] atomoxetine 80 mg capsule 2022-0 5- 00:00: 00 01-30 04:59 :00 No [id number] 80mg Take 1 capsule by mouth in the morning for [address] [facility] atomoxetine 80 mg capsule 2022-0 5- 00:00: 00 01-18 00:00 :00 No [id number] 80mg Take 1 capsule by mouth in the morning for [address] [facility] ARIPiprazol e 15 mg tablet 2023-0 5- 00:00: 00 01-18 00:00 :00 No [id number] 15mg Take 1 tablet by mouth in the morning. [facility] lamoTRIgine 25 mg tablet 2022-0 5- 00:00: 00 01-18 00:00 :00 No [id number] 25mg Take 1 tablet by mouth in the morning. [facility] naltrexone 50 mg tablet 2022-0 5- 00:00: 00 01-18 00:00 :00 No [id number] 50mg Take 1 tablet by mouth in the morning. [facility] atomoxetine 80 mg capsule 2022-0 5- 00:00: 00 01-18 00:00 :00 No [id number] 80mg Take 1 capsule by mouth in the morning for [address] [facility] ARIPiprazol e 15 mg tablet 2022-0 5- 00:00: 00 01-18 00:00 :00 No [id number] 15mg Take 1 tablet by mouth in the morning. [facility] lamoTRIgine 25 mg tablet 2022-0 5- 00:00: 00 01-18 00:00 :00 No [id number] 25mg Take 1 tablet by mouth in the morning. [facility] naltrexone 50 mg tablet 2022-0 5- 00:00: 00 01-18 00:00 :00 No [id number] 50mg Take 1 tablet by mouth in the morning. [facility] atomoxetine 80 mg capsule 2022-0 5- 00:00: 00 01-18 00:00 :00 No [id number] 80mg Take 1 capsule by mouth in the morning for [address] [facility] ARIPiprazol e 15 mg tablet 2022-0 5- 00:00: 00 01-18 00:00 :00 No [id number] 15mg Take 1 tablet by mouth in the morning. [facility] lamoTRIgine 25 mg tablet 2022-0 5- 00:00: 00 01-18 00:00 :00 No [id number] 25mg Take 1 tablet by mouth in the morning. [facility] naltrexone 50 mg tablet 10-31 00:00: 00 01-18 00:00 :00 No [id number] 50mg Take 1 tablet by mouth in the morning. [facility] atomoxetine 80 mg capsule 10-31 00:00: 00 01-18 00:00 :00 No [id number] 80mg Take 1 capsule by mouth in the morning for [address] [facility] ARIPiprazol e 15 mg tablet 10-31 00:00: 00 01-18 00:00 :00 No [id number] 15mg Take 1 tablet by mouth in the morning. [facility] lamoTRIgine 25 mg tablet 10-31 00:00: 00 01-18 00:00 :00 No [id number] 25mg Take 1 tablet by mouth in the morning. [facility] naltrexone 50 mg tablet 10-31 00:00: 00 01-18 00:00 :00 No [id number] 50mg Take 1 tablet by mouth in the morning. [facility] testosteron e cypionate 200 mg/mL injection 10-27 00:00: 00 Yes INJECT 0.3 ML (60MG) EVERY 1 WEEK, SUBCUTANEO US, 49 DAYS. SAFE FOR SUBCUTANEO US USE [facility] testosteron e cypionate 200 mg/mL injection 10-27 00:00: 00 Yes INJECT 0.3 ML (60MG) EVERY 1 WEEK, SUBCUTANEO US, 49 DAYS. SAFE FOR SUBCUTANEO US USE [facility] testosteron e cypionate 200 mg/mL injection 0 10-27 00:00: 00 Yes INJECT 0.3 ML (60MG) EVERY 1 WEEK, SUBCUTANEO US, 49 DAYS. SAFE FOR SUBCUTANEO US USE [facility] testosteron e cypionate 200 mg/mL injection 10-27 00:00: 00 Yes INJECT 0.3 ML (60MG) EVERY 1 WEEK, SUBCUTANEO US, 49 DAYS. SAFE FOR SUBCUTANEO US USE [facility] testosteron e cypionate 200 mg/mL injection 10-27 00:00: 00 Yes INJECT 0.3 ML (60MG) EVERY 1 WEEK, SUBCUTANEO US, 49 DAYS. SAFE FOR SUBCUTANEO US USE [facility] testosteron e cypionate 200 mg/mL injection 10-27 00:00: 00 Yes INJECT 0.3 ML (60MG) EVERY 1 WEEK, SUBCUTANEO US, 49 DAYS. SAFE FOR SUBCUTANEO US USE [facility] testosteron e cypionate 200 mg/mL injection 10-27 00:00: 00 Yes INJECT 0.3 ML (60MG) EVERY 1 WEEK, SUBCUTANEO US, 49 DAYS. SAFE FOR SUBCUTANEO US USE [facility] testosteron e cypionate 200 mg/mL injection 10-27 00:00: 00 Yes INJECT 0.3 ML (60MG) EVERY 1 WEEK, SUBCUTANEO US, 49 DAYS. SAFE FOR SUBCUTANEO US USE [facility] testosteron e cypionate 200 mg/mL injection 10-27 00:00: 00 Yes INJECT 0.3 ML (60MG) EVERY 1 WEEK, SUBCUTANEO US, 49 DAYS. SAFE FOR SUBCUTANEO US USE [facility] testosteron e cypionate 200 mg/mL injection 10-27 00:00: 00 Yes INJECT 0.3 ML (60MG) EVERY 1 WEEK, SUBCUTANEO US, 49 DAYS. SAFE FOR SUBCUTANEO US USE [facility] testosteron e cypionate 200 mg/mL injection 10-27 00:00: 00 Yes INJECT 0.3 ML (60MG) EVERY 1 WEEK, SUBCUTANEO US, 49 DAYS. SAFE FOR SUBCUTANEO US USE [facility] testosteron e cypionate 200 mg/mL injection 10-27 00:00: 00 Yes INJECT 0.3 ML (60MG) EVERY 1 WEEK, SUBCUTANEO US, 49 DAYS. SAFE FOR SUBCUTANEO US USE [facility] testosteron e cypionate 200 mg/mL injection 10-27 00:00: 00 Yes INJECT 0.3 ML (60MG) EVERY 1 WEEK, SUBCUTANEO US, 49 DAYS. SAFE FOR SUBCUTANEO US USE [facility] testosteron e cypionate 200 mg/mL injection 10-27 00:00: 00 Yes INJECT 0.3 ML (60MG) EVERY 1 WEEK, SUBCUTANEO US, 49 DAYS. SAFE FOR SUBCUTANEO US USE [facility] testosteron e cypionate 200 mg/mL injection 10-27 00:00: 00 Yes INJECT 0.3 ML (60MG) EVERY 1 WEEK, SUBCUTANEO US, 49 DAYS. SAFE FOR SUBCUTANEO US USE [facility] testosteron e cypionate 200 mg/mL injection 10-27 00:00: 00 Yes INJECT 0.3 ML (60MG) EVERY 1 WEEK, SUBCUTANEO US, 49 DAYS. SAFE FOR SUBCUTANEO US USE [facility] testosteron e cypionate 200 mg/mL injection 10-27 00:00: 00 Yes INJECT 0.3 ML (60MG) EVERY 1 WEEK, SUBCUTANEO US, 49 DAYS. SAFE FOR SUBCUTANEO US USE [facility] testosteron e cypionate 200 mg/mL injection 10-27 00:00: 00 Yes INJECT 0.3 ML (60MG) EVERY 1 WEEK, SUBCUTANEO US, 49 DAYS. SAFE FOR SUBCUTANEO US USE [facility] testosteron e cypionate 200 mg/mL injection 10-27 00:00: 00 Yes INJECT 0.3 ML (60MG) EVERY 1 WEEK, SUBCUTANEO US, 49 DAYS. SAFE FOR SUBCUTANEO US USE [facility] testosteron e cypionate 200 mg/mL injection 10-27 00:00: 00 Yes INJECT 0.3 ML (60MG) EVERY 1 WEEK, SUBCUTANEO US, 49 DAYS. SAFE FOR SUBCUTANEO US USE [facility] testosteron e cypionate 200 mg/mL injection 10-27 00:00: 00 Yes INJECT 0.3 ML (60MG) EVERY 1 WEEK, SUBCUTANEO US, 49 DAYS. SAFE FOR SUBCUTANEO US USE [facility] testosteron e cypionate 200 mg/mL injection 10-27 00:00: 00 Yes INJECT 0.3 ML (60MG) EVERY 1 WEEK, SUBCUTANEO US, 49 DAYS. SAFE FOR SUBCUTANEO US USE [facility] testosteron e cypionate 200 mg/mL injection 10-27 00:00: 00 Yes INJECT 0.3 ML (60MG) EVERY 1 WEEK, SUBCUTANEO US, 49 DAYS. SAFE FOR SUBCUTANEO US USE [facility] testosteron e cypionate 200 mg/mL injection 10-27 00:00: 00 Yes INJECT 0.3 ML (60MG) EVERY 1 WEEK, SUBCUTANEO US, 49 DAYS. SAFE FOR SUBCUTANEO US USE [facility] testosteron e cypionate 200 mg/mL injection 10-27 00:00: 00 Yes INJECT 0.3 ML (60MG) EVERY 1 WEEK, SUBCUTANEO US, 49 DAYS. SAFE FOR SUBCUTANEO US USE [facility] testosteron e cypionate 200 mg/mL injection 10-27 00:00: 00 Yes INJECT 0.3 ML (60MG) EVERY 1 WEEK, SUBCUTANEO US, 49 DAYS. SAFE FOR SUBCUTANEO US USE [facility] testosteron e cypionate 200 mg/mL injection 10-27 00:00: 00 Yes INJECT 0.3 ML (60MG) EVERY 1 WEEK, SUBCUTANEO US, 49 DAYS. SAFE FOR SUBCUTANEO US USE [facility] testosteron e cypionate 200 mg/mL injection 10-27 00:00: 00 Yes INJECT 0.3 ML (60MG) EVERY 1 WEEK, SUBCUTANEO US, 49 DAYS. SAFE FOR SUBCUTANEO US USE [facility] testosteron e cypionate 200 mg/mL injection 10-27 00:00: 00 Yes INJECT 0.3 ML (60MG) EVERY 1 WEEK, SUBCUTANEO US, 49 DAYS. SAFE FOR SUBCUTANEO US USE [facility] testosteron e cypionate 200 mg/mL injection 10-27 00:00: 00 Yes INJECT 0.3 ML (60MG) EVERY 1 WEEK, SUBCUTANEO US, 49 DAYS. SAFE FOR SUBCUTANEO US USE [facility] testosteron e cypionate 200 mg/mL injection 10-27 00:00: 00 Yes INJECT 0.3 ML (60MG) EVERY 1 WEEK, SUBCUTANEO US, 49 DAYS. SAFE FOR SUBCUTANEO US USE [facility] testosteron e cypionate 200 mg/mL injection 10-27 00:00: 00 Yes INJECT 0.3 ML (60MG) EVERY 1 WEEK, SUBCUTANEO US, 49 DAYS. SAFE FOR SUBCUTANEO US USE [facility] testosteron e cypionate 200 mg/mL injection 10-27 00:00: 00 Yes INJECT 0.3 ML (60MG) EVERY 1 WEEK, SUBCUTANEO US, 49 DAYS. SAFE FOR SUBCUTANEO US USE [facility] testosteron e cypionate 200 mg/mL injection 10-27 00:00: 00 Yes INJECT 0.3 ML (60MG) EVERY 1 WEEK, SUBCUTANEO US, 49 DAYS. SAFE FOR SUBCUTANEO US USE [facility] testosteron e cypionate 200 mg/mL injection 10-27 00:00: 00 Yes INJECT 0.3 ML (60MG) EVERY 1 WEEK, SUBCUTANEO US, 49 DAYS. SAFE FOR SUBCUTANEO US USE [facility] testosteron e cypionate 200 mg/mL injection 10-27 00:00: 00 Yes INJECT 0.3 ML (60MG) EVERY 1 WEEK, SUBCUTANEO US, 49 DAYS. SAFE FOR SUBCUTANEO US USE [facility] testosteron e cypionate 200 mg/mL injection 10-27 00:00: 00 Yes INJECT 0.3 ML (60MG) EVERY 1 WEEK, SUBCUTANEO US, 49 DAYS. SAFE FOR SUBCUTANEO US USE [facility] testosteron e cypionate 200 mg/mL injection 10-27 00:00: 00 Yes INJECT 0.3 ML (60MG) EVERY 1 WEEK, SUBCUTANEO US, 49 DAYS. SAFE FOR SUBCUTANEO US USE [facility] testosteron e cypionate 200 mg/mL injection 10-27 00:00: 00 Yes INJECT 0.3 ML (60MG) EVERY 1 WEEK, SUBCUTANEO US, 49 DAYS. SAFE FOR SUBCUTANEO US USE [facility] testosteron e cypionate 200 mg/mL injection 10-27 00:00: 00 Yes INJECT 0.3 ML (60MG) EVERY 1 WEEK, SUBCUTANEO US, 49 DAYS. SAFE FOR SUBCUTANEO US USE [facility] testosteron e cypionate 200 mg/mL injection 10-27 00:00: 00 Yes INJECT 0.3 ML (60MG) EVERY 1 WEEK, SUBCUTANEO US, 49 DAYS. SAFE FOR SUBCUTANEO US USE [facility] testosteron e cypionate 200 mg/mL injection 10-27 00:00: 00 Yes INJECT 0.3 ML (60MG) EVERY 1 WEEK, SUBCUTANEO US, 49 DAYS. SAFE FOR SUBCUTANEO US USE [facility] testosteron e cypionate 200 mg/mL injection 10-27 00:00: 00 Yes INJECT 0.3 ML (60MG) EVERY 1 WEEK, SUBCUTANEO US, 49 DAYS. SAFE FOR SUBCUTANEO US USE [facility] testosteron e cypionate 200 mg/mL injection 10-27 00:00: 00 Yes INJECT 0.3 ML (60MG) EVERY 1 WEEK, SUBCUTANEO US, 49 DAYS. SAFE FOR SUBCUTANEO US USE [facility] testosteron e cypionate 200 mg/mL injection 10-27 00:00: 00 Yes INJECT 0.3 ML (60MG) EVERY 1 WEEK, SUBCUTANEO US, 49 DAYS. SAFE FOR SUBCUTANEO US USE [facility] testosteron e cypionate 200 mg/mL injection 0 10-27 00:00: 00 Yes INJECT 0.3 ML (60MG) EVERY 1 WEEK, SUBCUTANEO US, 49 DAYS. SAFE FOR SUBCUTANEO US USE [facility] testosteron e cypionate 200 mg/mL injection 0 10-27 00:00: 00 Yes INJECT 0.3 ML (60MG) EVERY 1 WEEK, SUBCUTANEO US, 49 DAYS. SAFE FOR SUBCUTANEO US USE [facility] testosteron e cypionate 200 mg/mL injection 0 10-27 00:00: 00 Yes INJECT 0.3 ML (60MG) EVERY 1 WEEK, SUBCUTANEO US, 49 DAYS. SAFE FOR SUBCUTANEO US USE [facility] testosteron e cypionate 200 mg/mL injection 0 10-27 00:00: 00 Yes INJECT 0.3 ML (60MG) EVERY 1 WEEK, SUBCUTANEO US, 49 DAYS. SAFE FOR SUBCUTANEO US USE [facility] testosteron e cypionate 200 mg/mL injection 0 10-27 00:00: 00 06-20 00:00 :00 No INJECT 0.3 ML (60MG) EVERY 1 WEEK, SUBCUTANEO US, 49 DAYS. SAFE FOR SUBCUTANEO US USE [facility] testosteron e cypionate 200 mg/mL injection 0 10-27 00:00: 00 06-20 00:00 :00 No INJECT 0.3 ML (60MG) EVERY 1 WEEK, SUBCUTANEO US, 49 DAYS. SAFE FOR SUBCUTANEO US USE [facility] testosteron e cypionate 200 mg/mL injection 0 10-27 00:00: 00 06-20 00:00 :00 No INJECT 0.3 ML (60MG) EVERY 1 WEEK, SUBCUTANEO US, 49 DAYS. SAFE FOR SUBCUTANEO US USE [facility] testosteron e cypionate 200 mg/mL injection 0 10-27 00:00: 00 06-20 00:00 :00 No INJECT 0.3 ML (60MG) EVERY 1 WEEK, SUBCUTANEO US, 49 DAYS. SAFE FOR SUBCUTANEO US USE [facility] atomoxetine 80 mg capsule 3-0 4-18 00:00: 00 Yes [id number] 80mg Take 1 capsule by mouth in the morning. [facility] atomoxetine 80 mg capsule 3-0 4-18 00:00: 00 Yes [id number] 80mg Take 1 capsule by mouth in the morning. [facility] atomoxetine 80 mg capsule 3-0 4-18 00:00: 00 10-31 00:00 :00 No [id number] 80mg Take 1 capsule by mouth in the morning. [facility] atomoxetine 80 mg capsule 3-0 4-18 00:00: 00 10-31 00:00 :00 No [id number] 80mg Take 1 capsule by mouth in the morning. [facility] atomoxetine 80 mg capsule 3-0 4-18 00:00: 00 10-31 00:00 :00 No [id number] 80mg Take 1 capsule by mouth in the morning. [facility] atomoxetine 80 mg capsule 3-0 4-18 00:00: 00 10-31 00:00 :00 No [id number] 80mg Take 1 capsule by mouth in the morning. [facility] atomoxetine 80 mg capsule 3-0 4-18 00:00: 00 10-31 00:00 :00 No [id number] 80mg Take 1 capsule by mouth in the morning. [facility] atomoxetine 80 mg capsule 3-0 4-18 00:00: 00 10-31 00:00 :00 No [id number] 80mg Take 1 capsule by mouth in the morning. [facility] atomoxetine 80 mg capsule 3-0 4-18 00:00: 00 10-31 00:00 :00 No [id number] 80mg Take 1 capsule by mouth in the morning. [facility] atomoxetine 80 mg capsule 3-0 4-18 00:00: 00 10-31 00:00 :00 No [id number] 80mg Take 1 capsule by mouth in the morning. [facility] atomoxetine 80 mg capsule 3-0 4-18 00:00: 00 10-31 00:00 :00 No [id number] 80mg Take 1 capsule by mouth in the morning. [facility] atomoxetine 80 mg capsule 3-0 4-18 00:00: 00 10-31 00:00 :00 No [id number] 80mg Take 1 capsule by mouth in the morning. [facility] atomoxetine 80 mg capsule 3-0 4-18 00:00: 00 10-31 00:00 :00 No [id number] 80mg Take 1 capsule by mouth in the morning. [facility] ARIPiprazol e 15 mg tablet 3-0 2-20 00:00: 00 Yes [id number] 15mg Take 1 tablet by mouth in the morning. [facility] lamoTRIgine 25 mg tablet 3-0 2-20 00:00: 00 Yes [id number] 25mg Take 1 tablet by mouth in the morning. [facility] ARIPiprazol e 15 mg tablet 3-0 2-20 00:00: 00 Yes [id number] 15mg Take 1 tablet by mouth in the morning. [facility] lamoTRIgine 25 mg tablet 3-0 2-20 00:00: 00 Yes [id number] 25mg Take 1 tablet by mouth in the morning. [facility] ARIPiprazol e 15 mg tablet 3-0 2-20 00:00: 00 Yes [id number] 15mg Take 1 tablet by mouth in the morning. [facility] lamoTRIgine 25 mg tablet 3-0 2-20 00:00: 00 Yes [id number] 25mg Take 1 tablet by mouth in the morning. [facility] ARIPiprazol e 15 mg tablet 3-0 2-20 00:00: 00 Yes [id number] 15mg Take 1 tablet by mouth in the morning. [facility] lamoTRIgine 25 mg tablet 3-0 2-20 00:00: 00 Yes [id number] 25mg Take 1 tablet by mouth in the morning. [facility] ARIPiprazol e 15 mg tablet 3-0 2-20 00:00: 00 Yes [id number] 15mg Take 1 tablet by mouth in the morning. [facility] lamoTRIgine 25 mg tablet 3-0 2-20 00:00: 00 Yes [id number] 25mg Take 1 tablet by mouth in the morning. [facility] ARIPiprazol e 15 mg tablet 3-0 2-20 00:00: 00 Yes [id number] 15mg Take 1 tablet by mouth in the morning. [facility] lamoTRIgine 25 mg tablet 3-0 2-20 00:00: 00 Yes [id number] 25mg Take 1 tablet by mouth in the morning. [facility] ARIPiprazol e 15 mg tablet 3-0 2-20 00:00: 00 Yes [id number] 15mg Take 1 tablet by mouth in the morning. [facility] lamoTRIgine 25 mg tablet 3-0 2-20 00:00: 00 Yes [id number] 25mg Take 1 tablet by mouth in the morning. [facility] ARIPiprazol e 15 mg tablet 3-0 2-20 00:00: 00 Yes [id number] 15mg Take 1 tablet by mouth in the morning. [facility] lamoTRIgine 25 mg tablet 3-0 2-20 00:00: 00 Yes [id number] 25mg Take 1 tablet by mouth in the morning. [facility] ARIPiprazol e 15 mg tablet 3-0 2-20 00:00: 00 Yes [id number] 15mg Take 1 tablet by mouth in the morning. [facility] lamoTRIgine 25 mg tablet 3-0 2-20 00:00: 00 Yes [id number] 25mg Take 1 tablet by mouth in the morning. [facility] ARIPiprazol e 15 mg tablet 3-0 2-20 00:00: 00 Yes [id number] 15mg Take 1 tablet by mouth in the morning. [facility] lamoTRIgine 25 mg tablet 3-0 2-20 00:00: 00 Yes [id number] 25mg Take 1 tablet by mouth in the morning. [facility] ARIPiprazol e 15 mg tablet 3-0 2-20 00:00: 00 Yes [id number] 15mg Take 1 tablet by mouth in the morning. [facility] lamoTRIgine 25 mg tablet 3-0 2-20 00:00: 00 Yes [id number] 25mg Take 1 tablet by mouth in the morning. [facility] ARIPiprazol e 15 mg tablet 3-0 2-20 00:00: 00 Yes [id number] 15mg Take 1 tablet by mouth in the morning. [facility] lamoTRIgine 25 mg tablet 3-0 2-20 00:00: 00 Yes [id number] 25mg Take 1 tablet by mouth in the morning. [facility] ARIPiprazol e 15 mg tablet 3-0 2-20 00:00: 00 Yes [id number] 15mg Take 1 tablet by mouth in the morning. [facility] lamoTRIgine 25 mg tablet 3-0 2-20 00:00: 00 Yes [id number] 25mg Take 1 tablet by mouth in the morning. [facility] ARIPiprazol e 15 mg tablet 3-0 2-20 00:00: 00 Yes [id number] 15mg Take 1 tablet by mouth in the morning. [facility] lamoTRIgine 25 mg tablet 3-0 2-20 00:00: 00 Yes [id number] 25mg Take 1 tablet by mouth in the morning. [facility] ARIPiprazol e 15 mg tablet 3-0 2-20 00:00: 00 Yes [id number] 15mg Take 1 tablet by mouth in the morning. [facility] lamoTRIgine 25 mg tablet 3-0 2-20 00:00: 00 Yes [id number] 25mg Take 1 tablet by mouth in the morning. [facility] naltrexone 50 mg tablet 3-0 2-20 00:00: 00 11-21 04:59 :00 No [id number] 50mg Take 1 tablet by mouth in the morning for 90 days. [facility] naltrexone 50 mg tablet 3-0 2-20 00:00: 00 11-21 04:59 :00 No [id number] 50mg Take 1 tablet by mouth in the morning for [address] [facility] naltrexone 50 mg tablet 3-0 2-20 00:00: 00 11-21 04:59 :00 No [id number] 50mg Take 1 tablet by mouth in the morning for 90 days. [facility] naltrexone 50 mg tablet 3-0 2-20 00:00: 00 11-21 04:59 :00 No [id number] 50mg Take 1 tablet by mouth in the morning for [address] [facility] naltrexone 50 mg tablet 2022-0 2-20 00:00: 00 11-21 04:59 :00 No [id number] 50mg Take 1 tablet by mouth in the morning for [address] [facility] naltrexone 50 mg tablet 2022-0 2-20 00:00: 00 11-21 04:59 :00 No [id number] 50mg Take 1 tablet by mouth in the morning for [address] [facility] naltrexone 50 mg tablet 2022-0 2-20 00:00: 00 11-21 04:59 :00 No [id number] 50mg Take 1 tablet by mouth in the morning for [address] [facility] naltrexone 50 mg tablet 3-0 2-20 00:00: 00 11-21 04:59 :00 No [id number] 50mg Take 1 tablet by mouth in the morning for [address] [facility] naltrexone 50 mg tablet 3-0 2-20 00:00: 00 11-21 04:59 :00 No [id number] 50mg Take 1 tablet by mouth in the morning for [address] [facility] naltrexone 50 mg tablet 3-0 2-20 00:00: 00 11-21 04:59 :00 No [id number] 50mg Take 1 tablet by mouth in the morning for [address] [facility] naltrexone 50 mg tablet 3-0 2-20 00:00: 00 11-21 04:59 :00 No [id number] 50mg Take 1 tablet by mouth in the morning for [address] [facility] naltrexone 50 mg tablet 3-0 2-20 00:00: 00 11-21 04:59 :00 No [id number] 50mg Take 1 tablet by mouth in the morning for [address] [facility] naltrexone 50 mg tablet 2022-0 2-20 00:00: 00 11-21 04:59 :00 No [id number] 50mg Take 1 tablet by mouth in the morning for [address] [facility] naltrexone 50 mg tablet 2022-0 2-20 00:00: 00 11-21 04:59 :00 No [id number] 50mg Take 1 tablet by mouth in the morning for [address] [facility] naltrexone 50 mg tablet 2022-0 2-20 00:00: 00 11-21 04:59 :00 No [id number] 50mg Take 1 tablet by mouth in the morning for [address] [facility] ARIPiprazol e 15 mg tablet 2022-0 2-20 00:00: 00 10-31 00:00 :00 No [id number] 15mg Take 1 tablet by mouth in the morning. [facility] lamoTRIgine 25 mg tablet 2022-0 2-20 00:00: 00 10-31 00:00 :00 No [id number] 25mg Take 1 tablet by mouth in the morning. [facility] naltrexone 50 mg tablet 2022-0 2-20 00:00: 00 10-31 00:00 :00 No [id number] 50mg Take 1 tablet by mouth in the morning for [address] [facility] ARIPiprazol e 15 mg tablet 3-0 2-20 00:00: 00 10-31 00:00 :00 No [id number] 15mg Take 1 tablet by mouth in the morning. [facility] lamoTRIgine 25 mg tablet 3-0 2-20 00:00: 00 10-31 00:00 :00 No [id number] 25mg Take 1 tablet by mouth in the morning. [facility] naltrexone 50 mg tablet 3-0 2-20 00:00: 00 10-31 00:00 :00 No [id number] 50mg Take 1 tablet by mouth in the morning for [address] [facility] ARIPiprazol e 15 mg tablet 3-0 2-20 00:00: 00 10-31 00:00 :00 No [id number] 15mg Take 1 tablet by mouth in the morning. [facility] lamoTRIgine 25 mg tablet 3-0 2-20 00:00: 00 10-31 00:00 :00 No [id number] 25mg Take 1 tablet by mouth in the morning. [facility] naltrexone 50 mg tablet 2022-0 2-20 00:00: 00 10-31 00:00 :00 No [id number] 50mg Take 1 tablet by mouth in the morning for [address] [facility] ARIPiprazol e 15 mg tablet 2022-0 2-20 00:00: 00 10-31 00:00 :00 No [id number] 15mg Take 1 tablet by mouth in the morning. [facility] lamoTRIgine 25 mg tablet 2022-0 2-20 00:00: 00 10-31 00:00 :00 No [id number] 25mg Take 1 tablet by mouth in the morning. [facility] naltrexone 50 mg tablet 2022-0 2-20 00:00: 00 10-31 00:00 :00 No [id number] 50mg Take 1 tablet by mouth in the morning for [address] [facility] ARIPiprazol e 15 mg tablet 3-0 2-20 00:00: 00 10-31 00:00 :00 No [id number] 15mg Take 1 tablet by mouth in the morning. [facility] lamoTRIgine 25 mg tablet 3-0 2-20 00:00: 00 10-31 00:00 :00 No [id number] 25mg Take 1 tablet by mouth in the morning. [facility] naltrexone 50 mg tablet 3-0 2-20 00:00: 00 10-31 00:00 :00 No [id number] 50mg Take 1 tablet by mouth in the morning for [address] [facility] ARIPiprazol e 15 mg tablet 3-0 2-20 00:00: 00 10-31 00:00 :00 No [id number] 15mg Take 1 tablet by mouth in the morning. [facility] lamoTRIgine 25 mg tablet 3-0 2-20 00:00: 00 10-31 00:00 :00 No [id number] 25mg Take 1 tablet by mouth in the morning. [facility] naltrexone 50 mg tablet 3-0 2-20 00:00: 00 10-31 00:00 :00 No [id number] 50mg Take 1 tablet by mouth in the morning for [address] [facility] ARIPiprazol e 15 mg tablet 2022-0 2-20 00:00: 00 10-31 00:00 :00 No [id number] 15mg Take 1 tablet by mouth in the morning. [facility] lamoTRIgine 25 mg tablet 3-0 2-20 00:00: 00 10-31 00:00 :00 No [id number] 25mg Take 1 tablet by mouth in the morning. [facility] naltrexone 50 mg tablet 3-0 2-20 00:00: 00 10-31 00:00 :00 No [id number] 50mg Take 1 tablet by mouth in the morning for [address] [facility] ARIPiprazol e 15 mg tablet 3-0 2-20 00:00: 00 10-31 00:00 :00 No [id number] 15mg Take 1 tablet by mouth in the morning. [facility] lamoTRIgine 25 mg tablet 3-0 2-20 00:00: 00 10-31 00:00 :00 No [id number] 25mg Take 1 tablet by mouth in the morning. [facility] naltrexone 50 mg tablet 3-0 2-20 00:00: 00 10-31 00:00 :00 No [id number] 50mg Take 1 tablet by mouth in the morning for [address] [facility] ARIPiprazol e 15 mg tablet 3-0 2-20 00:00: 00 10-31 00:00 :00 No [id number] 15mg Take 1 tablet by mouth in the morning. [facility] lamoTRIgine 25 mg tablet 3-0 2-20 00:00: 00 10-31 00:00 :00 No [id number] 25mg Take 1 tablet by mouth in the morning. [facility] naltrexone 50 mg tablet 2022-0 2-20 00:00: 00 10-31 00:00 :00 No [id number] 50mg Take 1 tablet by mouth in the morning for [address] [facility] ARIPiprazol e 15 mg tablet 2022-0 2-20 00:00: 00 10-31 00:00 :00 No [id number] 15mg Take 1 tablet by mouth in the morning. [facility] lamoTRIgine 25 mg tablet 2022-0 2-20 00:00: 00 10-31 00:00 :00 No [id number] 25mg Take 1 tablet by mouth in the morning. [facility] naltrexone 50 mg tablet 2022-0 2-20 00:00: 00 10-31 00:00 :00 No [id number] 50mg Take 1 tablet by mouth in the morning for [address] [facility] ARIPiprazol e 15 mg tablet 2022-0 2-20 00:00: 00 10-31 00:00 :00 No [id number] 15mg Take 1 tablet by mouth in the morning. [facility] lamoTRIgine 25 mg tablet 3-0 2-20 00:00: 00 10-31 00:00 :00 No [id number] 25mg Take 1 tablet by mouth in the morning. [facility] naltrexone 50 mg tablet 2022-0 2-20 00:00: 00 10-31 00:00 :00 No [id number] 50mg Take 1 tablet by mouth in the morning for 90 days. [facility] atomoxetine 80 mg capsule 2023-0 2-20 00:00: 00 10-22 04:59 :00 No [id number] 80mg Take 1 capsule by mouth in the morning for 60 days. [facility] atomoxetine 80 mg capsule 2023-0 2-20 00:00: 00 10-22 04:59 :00 No [id number] 80mg Take 1 capsule by mouth in the morning for 60 days. [facility] atomoxetine 80 mg capsule 3-0 2-20 00:00: 00 10-22 04:59 :00 No [id number] 80mg Take 1 capsule by mouth in the morning for 60 days. [facility] atomoxetine 80 mg capsule 3-0 2-20 00:00: 00 10-22 04:59 :00 No [id number] 80mg Take 1 capsule by mouth in the morning for 60 days. [facility] atomoxetine 80 mg capsule 3-0 2-20 00:00: 00 10-22 04:59 :00 No [id number] 80mg Take 1 capsule by mouth in the morning for 60 days. [facility] atomoxetine 80 mg capsule 3-0 2-20 00:00: 00 10-22 04:59 :00 No [id number] 80mg Take 1 capsule by mouth in the morning for 60 days. [facility] atomoxetine 80 mg capsule 3-0 2-20 00:00: 00 10-22 04:59 :00 No [id number] 80mg Take 1 capsule by mouth in the morning for 60 days. [facility] atomoxetine 80 mg capsule 3-0 2-20 00:00: 00 10-22 04:59 :00 No [id number] 80mg Take 1 capsule by mouth in the morning for 60 days. [facility] atomoxetine 80 mg capsule 3-0 2-20 00:00: 00 10-22 04:59 :00 No [id number] 80mg Take 1 capsule by mouth in the morning for 60 days. [facility] atomoxetine 80 mg capsule 3-0 2-20 00:00: 00 10-22 04:59 :00 No [id number] 80mg Take 1 capsule by mouth in the morning for 60 days. [facility] atomoxetine 80 mg capsule 3-0 2-20 00:00: 00 10-22 04:59 :00 No [id number] 80mg Take 1 capsule by mouth in the morning for 60 days. [facility] atomoxetine 80 mg capsule 3-0 2-20 00:00: 00 10-22 04:59 :00 No [id number] 80mg Take 1 capsule by mouth in the morning for 60 days. [facility] atomoxetine 80 mg capsule 3-0 2-20 00:00: 00 10-18 00:00 :00 No [id number] 80mg Take 1 capsule by mouth in the morning for 60 days. [facility] atomoxetine 80 mg capsule 3-0 2-20 00:00: 00 10-18 00:00 :00 No [id number] 80mg Take 1 capsule by mouth in the morning for 60 days. [facility] atomoxetine 80 mg capsule 3-0 2-20 00:00: 00 10-18 00:00 :00 No [id number] 80mg Take 1 capsule by mouth in the morning for 60 days. [facility] atomoxetine 80 mg capsule 3-0 2-20 00:00: 00 10-18 00:00 :00 No [id number] 80mg Take 1 capsule by mouth in the morning for 60 days. [facility] atomoxetine 80 mg capsule 3-0 2-20 00:00: 00 10-18 00:00 :00 No [id number] 80mg Take 1 capsule by mouth in the morning for 60 days. [facility] atomoxetine 80 mg capsule 3-0 2-20 00:00: 00 10-18 00:00 :00 No [id number] 80mg Take 1 capsule by mouth in the morning for 60 days. [facility] atomoxetine 80 mg capsule 3-0 2-20 00:00: 00 10-18 00:00 :00 No [id number] 80mg Take 1 capsule by mouth in the morning for [address] [facility] atomoxetine 80 mg capsule 3-0 2-20 00:00: 00 10-18 00:00 :00 No [id number] 80mg Take 1 capsule by mouth in the morning for [address] [facility] atomoxetine 80 mg capsule 3-0 2-20 00:00: 00 10-18 00:00 :00 No [id number] 80mg Take 1 capsule by mouth in the morning for [address] [facility] atomoxetine 80 mg capsule 3-0 2-20 00:00: 00 10-18 00:00 :00 No [id number] 80mg Take 1 capsule by mouth in the morning for [address] [facility] atomoxetine 80 mg capsule 3-0 2-20 00:00: 00 10-18 00:00 :00 No [id number] 80mg Take 1 capsule by mouth in the morning for [address] [facility] atomoxetine 80 mg capsule 3-0 2-20 00:00: 00 10-18 00:00 :00 No [id number] 80mg Take 1 capsule by mouth in the morning for [address] [facility] hydrOXYzine 25 mg tablet 3-0 1-23 00:00: 00 Yes [id number] 25mg Take 1 tablet by mouth every 6 (six) hours as needed for Anxiety. [facility] hydrOXYzine 25 mg tablet 3-0 1-23 00:00: 00 Yes [id number] 25mg Take 1 tablet by mouth every 6 (six) hours as needed for Anxiety. [facility] hydrOXYzine 25 mg tablet 3-0 1-23 00:00: 00 Yes [id number] 25mg Take 1 tablet by mouth every 6 (six) hours as needed for Anxiety. [facility] hydrOXYzine 25 mg tablet 3-0 1-23 00:00: 00 Yes [id number] 25mg Take 1 tablet by mouth every 6 (six) hours as needed for Anxiety. [facility] hydrOXYzine 25 mg tablet 2023-0 1-23 00:00: 00 Yes [id number] 25mg Take 1 tablet by mouth every 6 (six) hours as needed for Anxiety. [facility] [facility] hydrOXYzine 25 mg tablet 3-0 -23 00:00: 00 Yes [id number] 25mg Take 1 tablet by mouth every 6 (six) hours as needed for Anxiety. [facility] hydrOXYzine 25 mg tablet 3-0 -23 00:00: 00 Yes [id number] 25mg Take 1 tablet by mouth every 6 (six) hours as needed for Anxiety. [facility] hydrOXYzine 25 mg tablet 3-0 -23 00:00: 00 Yes [id number] 25mg Take 1 tablet by mouth every 6 (six) hours as needed for Anxiety. [facility] hydrOXYzine 25 mg tablet 3-0 -23 00:00: 00 Yes [id number] 25mg Take 1 tablet by mouth every 6 (six) hours as needed for Anxiety. [facility] hydrOXYzine 25 mg tablet 3-0 -23 00:00: 00 Yes [id number] 25mg Take 1 tablet by mouth every 6 (six) hours as needed for Anxiety. [facility] hydrOXYzine 25 mg tablet 3-0 23 00:00: 00 Yes [id number] 25mg Take 1 tablet by mouth every 6 (six) hours as needed for Anxiety. [facility] hydrOXYzine 25 mg tablet 3-0 23 00:00: 00 Yes [id number] 25mg Take 1 tablet by mouth every 6 (six) hours as needed for Anxiety. [facility] hydrOXYzine 25 mg tablet 3-0 23 00:00: 00 Yes [id number] 25mg Take 1 tablet by mouth every 6 (six) hours as needed for Anxiety. [facility] hydrOXYzine 25 mg tablet 3-0 -23 00:00: 00 Yes [id number] 25mg Take 1 tablet by mouth every 6 (six) hours as needed for Anxiety. [facility] hydrOXYzine 25 mg tablet 3-0 -23 00:00: 00 Yes [id number] 25mg Take 1 tablet by mouth every 6 (six) hours as needed for Anxiety. [facility] hydrOXYzine 25 mg tablet 3-0 -23 00:00: 00 Yes [id number] 25mg Take 1 tablet by mouth every 6 (six) hours as needed for Anxiety. [facility] hydrOXYzine 25 mg tablet 3-0 -23 00:00: 00 Yes [id number] 25mg Take 1 tablet by mouth every 6 (six) hours as needed for Anxiety. [facility] hydrOXYzine 25 mg tablet 3-0 -23 00:00: 00 Yes [id number] 25mg Take 1 tablet by mouth every 6 (six) hours as needed for Anxiety. [facility] hydrOXYzine 25 mg tablet 3-0 -23 00:00: 00 Yes [id number] 25mg Take 1 tablet by mouth every 6 (six) hours as needed for Anxiety. [facility] hydrOXYzine 25 mg tablet 3-0 23 00:00: 00 Yes [id number] 25mg Take 1 tablet by mouth every 6 (six) hours as needed for Anxiety. [facility] hydrOXYzine 25 mg tablet 3-0 -23 00:00: 00 Yes [id number] 25mg Take 1 tablet by mouth every 6 (six) hours as needed for Anxiety. [facility] hydrOXYzine 25 mg tablet 3-0 23 00:00: 00 Yes [id number] 25mg Take 1 tablet by mouth every 6 (six) hours as needed for Anxiety. [facility] hydrOXYzine 25 mg tablet 3-0 23 00:00: 00 Yes [id number] 25mg Take 1 tablet by mouth every 6 (six) hours as needed for Anxiety. [facility] hydrOXYzine 25 mg tablet 3-0 -23 00:00: 00 Yes [id number] 25mg Take 1 tablet by mouth every 6 (six) hours as needed for Anxiety. [facility] hydrOXYzine 25 mg tablet 3-0 -23 00:00: 00 Yes [id number] 25mg Take 1 tablet by mouth every 6 (six) hours as needed for Anxiety. [facility] hydrOXYzine 25 mg tablet 3-0 -23 00:00: 00 Yes [id number] 25mg Take 1 tablet by mouth every 6 (six) hours as needed for Anxiety. [facility] hydrOXYzine 25 mg tablet 2023-0 -23 00:00: 00 Yes [id number] 25mg Take 1 tablet by mouth every 6 (six) hours as needed for Anxiety. [facility] hydrOXYzine 25 mg tablet 2023-0 -23 00:00: 00 Yes [id number] 25mg Take 1 tablet by mouth every 6 (six) hours as needed for Anxiety. [facility] hydrOXYzine 25 mg tablet 2023-0 -23 00:00: 00 Yes [id number] 25mg Take 1 tablet by mouth every 6 (six) hours as needed for Anxiety. [facility] hydrOXYzine 25 mg tablet 2023-0 -23 00:00: 00 Yes [id number] 25mg Take 1 tablet by mouth every 6 (six) hours as needed for Anxiety. [facility] hydrOXYzine 25 mg tablet 2023-0 -23 00:00: 00 Yes [id number] 25mg Take 1 tablet by mouth every 6 (six) hours as needed for Anxiety. [facility] hydrOXYzine 25 mg tablet 3-0 -23 00:00: 00 Yes [id number] 25mg Take 1 tablet by mouth every 6 (six) hours as needed for Anxiety. [facility] hydrOXYzine 25 mg tablet 3-0 -23 00:00: 00 Yes [id number] 25mg Take 1 tablet by mouth every 6 (six) hours as needed for Anxiety. [facility] hydrOXYzine 25 mg tablet 2023-0 -23 00:00: 00 Yes [id number] 25mg Take 1 tablet by mouth every 6 (six) hours as needed for Anxiety. [facility] hydrOXYzine 25 mg tablet 2023-0 -23 00:00: 00 Yes [id number] 25mg Take 1 tablet by mouth every 6 (six) hours as needed for Anxiety. [facility] hydrOXYzine 25 mg tablet 2023-0 1-23 00:00: 00 Yes [id number] 25mg Take 1 tablet by mouth every 6 (six) hours as needed for Anxiety. [facility] hydrOXYzine 25 mg tablet 2023-0 -23 00:00: 00 Yes [id number] 25mg Take 1 tablet by mouth every 6 (six) hours as needed for Anxiety. [facility] hydrOXYzine 25 mg tablet 3-0 -23 00:00: 00 Yes [id number] 25mg Take 1 tablet by mouth every 6 (six) hours as needed for Anxiety. [facility] hydrOXYzine 25 mg tablet 3-0 -23 00:00: 00 Yes [id number] 25mg Take 1 tablet by mouth every 6 (six) hours as needed for Anxiety. [facility] hydrOXYzine 25 mg tablet 3-0 -23 00:00: 00 Yes [id number] 25mg Take 1 tablet by mouth every 6 (six) hours as needed for Anxiety. [facility] hydrOXYzine 25 mg tablet 3-0 -23 00:00: 00 Yes [id number] 25mg Take 1 tablet by mouth every 6 (six) hours as needed for Anxiety. [facility] hydrOXYzine 25 mg tablet 3-0 -23 00:00: 00 Yes [id number] 25mg Take 1 tablet by mouth every 6 (six) hours as needed for Anxiety. [facility] hydrOXYzine 25 mg tablet 3-0 23 00:00: 00 Yes [id number] 25mg Take 1 tablet by mouth every 6 (six) hours as needed for Anxiety. [facility] hydrOXYzine 25 mg tablet 3-0 23 00:00: 00 Yes [id number] 25mg Take 1 tablet by mouth every 6 (six) hours as needed for Anxiety. [facility] hydrOXYzine 25 mg tablet 3-0 23 00:00: 00 01-21 00:00 :00 No [id number] 25mg Take 1 tablet by mouth every 6 (six) hours as needed for Anxiety. [facility] hydrOXYzine 25 mg tablet 3-0 23 00:00: 00 01-21 00:00 :00 No [id number] 25mg Take 1 tablet by mouth every 6 (six) hours as needed for Anxiety. [facility] lamoTRIgine 25 mg tablet 3-0 1-11 00:00: 00 Yes [id number] 25mg Take 1 tablet by mouth in the morning. [facility] lamoTRIgine 25 mg tablet 3-0 1-11 00:00: 00 Yes [id number] 25mg Take 1 tablet by mouth in the morning. [facility] lamoTRIgine 25 mg tablet 2022-0 1- 00:00: 00 Yes [id number] 25mg Take 1 tablet by mouth in the morning. [facility] lamoTRIgine 25 mg tablet 2022-0 - 00:00: 00 Yes [id number] 25mg Take 1 tablet by mouth in the morning. [facility] lamoTRIgine 25 mg tablet 2022-0 07-13 00:00: 00 Yes [id number] 25mg Take 1 tablet by mouth in the morning. [facility] lamoTRIgine 25 mg tablet 2022-0 07-13 00:00: 00 08-22 00:00 :00 No [id number] 25mg Take 1 tablet by mouth in the morning. [facility] lamoTRIgine 25 mg tablet 2022-0 07-13 00:00: 00 08-22 00:00 :00 No [id number] 25mg Take 1 tablet by mouth in the morning. [facility] lamoTRIgine 25 mg tablet 2022-0 07-13 00:00: 00 08-22 00:00 :00 No [id number] 25mg Take 1 tablet by mouth in the morning. [facility] lamoTRIgine 25 mg tablet 2022-0 07-13 00:00: 00 08-22 00:00 :00 No [id number] 25mg Take 1 tablet by mouth in the morning. [facility] lamoTRIgine 25 mg tablet 2022-0 - 00:00: 00 08-22 00:00 :00 No [id number] 25mg Take 1 tablet by mouth in the morning. [facility] lamoTRIgine 25 mg tablet 2022-0 1-11 00:00: 00 08-22 00:00 :00 No [id number] 25mg Take 1 tablet by mouth in the morning. [facility] lamoTRIgine 25 mg tablet 2023-0 1-11 00:00: 00 08-22 00:00 :00 No [id number] 25mg Take 1 tablet by mouth in the morning. [facility] ARIPiprazol e 15 mg tablet 0 1-10 00:00: 00 10-11 04:59 :00 No [id number] 15mg Take 1 tablet by mouth in the morning for [address] [facility] ARIPiprazol e 15 mg tablet 2022-0 1-10 00:00: 00 10-11 04:59 :00 No [id number] 15mg Take 1 tablet by mouth in the morning for [address] [facility] ARIPiprazol e 15 mg tablet 2022-0 1- 00:00: 00 10-11 04:59 :00 No [id number] 15mg Take 1 tablet by mouth in the morning for [address] [facility] ARIPiprazol e 15 mg tablet 2022-0 - 00:00: 00 10-11 04:59 :00 No [id number] 15mg Take 1 tablet by mouth in the morning for [address] [facility] ARIPiprazol e 15 mg tablet 2022-0 1-10 00:00: 00 10-11 04:59 :00 No [id number] 15mg Take 1 tablet by mouth in the morning for [address] [facility] ARIPiprazol e 15 mg tablet 2022-0 1-10 00:00: 00 10-11 04:59 :00 No [id number] 15mg Take 1 tablet by mouth in the morning for [address] [facility] ARIPiprazol e 15 mg tablet 2022-0 1-10 00:00: 00 08-22 00:00 :00 No [id number] 15mg Take 1 tablet by mouth in the morning for [address] [facility] ARIPiprazol e 15 mg tablet 2022-0 1-10 00:00: 00 08-22 00:00 :00 No [id number] 15mg Take 1 tablet by mouth in the morning for [address] [facility] ARIPiprazol e 15 mg tablet 2022-0 1-10 00:00: 00 08-22 00:00 :00 No [id number] 15mg Take 1 tablet by mouth in the morning for [address] [facility] ARIPiprazol e 15 mg tablet 2022-0 1-10 00:00: 00 08-22 00:00 :00 No [id number] 15mg Take 1 tablet by mouth in the morning for [address] [facility] ARIPiprazol e 15 mg tablet 2022-0 1-10 00:00: 00 08-22 00:00 :00 No [id number] 15mg Take 1 tablet by mouth in the morning for [address] [facility] ARIPiprazol e 15 mg tablet 2022-0 1-10 00:00: 00 08-22 00:00 :00 No [id number] 15mg Take 1 tablet by mouth in the morning for [address] [facility] ARIPiprazol e 15 mg tablet 2022-0 1-10 00:00: 00 08-22 00:00 :00 No [id number] 15mg Take 1 tablet by mouth in the morning for [address] [facility] ARIPiprazol e (ABILIFY MAINTENA) injection SSRR 300 mg 2021-07 17:45: 00 06-16 16:48 :00 No [id number] 300mg [facility] ARIPiprazol e (ABILIFY MAINTENA) injection SSRR 300 mg 2021-07 17:45: 00 06-16 16:48 :00 No [id number] 300mg [facility] ARIPiprazol e (ABILIFY MAINTENA) injection SSRR 300 mg 2021-07 17:45: 00 06-16 16:48 :00 No [id number] 300mg [facility]iver [facility] ARIPiprazol e (ABILIFY MAINTENA) injection SSRR 300 mg 2021-07- 17:45: 00 06-16 16:48 :00 No [id number] 300mg [facility] hydrOXYzine 25 mg tablet 2021-07 00:00: 00 Yes [id number] 25mg Take 1 tablet by mouth every 6 (six) hours as needed for Anxiety. [facility] lamoTRIgine 25 mg tablet 2021-07 00:00: 00 Yes [id number] 25mg Take 1 tablet by mouth in the morning. [facility] naltrexone 50 mg tablet 2021-07 00:00: 00 Yes [id number] 50mg Take 1 tablet by mouth in the morning. [facility] hydrOXYzine 25 mg tablet 2021-07 00:00: 00 Yes [id number] 25mg Take 1 tablet by mouth every 6 (six) hours as needed for Anxiety. [facility] lamoTRIgine 25 mg tablet 2021-07 00:00: 00 Yes [id number] 25mg Take 1 tablet by mouth in the morning. [facility] naltrexone 50 mg tablet 2021-07 00:00: 00 Yes [id number] 50mg Take 1 tablet by mouth in the morning. [facility] hydrOXYzine 25 mg tablet 2021-07 00:00: 00 Yes [id number] 25mg Take 1 tablet by mouth every 6 (six) hours as needed for Anxiety. [facility] lamoTRIgine 25 mg tablet 2021-07 00:00: 00 Yes [id number] 25mg Take 1 tablet by mouth in the morning. [facility] naltrexone 50 mg tablet 2021-07 00:00: 00 Yes [id number] 50mg Take 1 tablet by mouth in the morning. [facility] hydrOXYzine 25 mg tablet 2021-07 00:00: 00 Yes [id number] 25mg Take 1 tablet by mouth every 6 (six) hours as needed for Anxiety. [facility] lamoTRIgine 25 mg tablet 2021-07 00:00: 00 Yes [id number] 25mg Take 1 tablet by mouth in the morning. [facility] naltrexone 50 mg tablet 2021-07 00:00: 00 Yes [id number] 50mg Take 1 tablet by mouth in the morning. [facility] hydrOXYzine 25 mg tablet 2021-07 00:00: 00 Yes [id number] 25mg Take 1 tablet by mouth every 6 (six) hours as needed for Anxiety. [facility] lamoTRIgine 25 mg tablet 2021-07 00:00: 00 Yes [id number] 25mg Take 1 tablet by mouth in the morning. [facility] naltrexone 50 mg tablet 2021-07 00:00: 00 Yes [id number] 50mg Take 1 tablet by mouth in the morning. [facility] hydrOXYzine 25 mg tablet 2021-07 00:00: 00 Yes [id number] 25mg Take 1 tablet by mouth every 6 (six) hours as needed for Anxiety. [facility] lamoTRIgine 25 mg tablet 2021-07 00:00: 00 Yes [id number] 25mg Take 1 tablet by mouth in the morning. [facility] naltrexone 50 mg tablet 2021-07 00:00: 00 Yes [id number] 50mg Take 1 tablet by mouth in the morning. [facility] hydrOXYzine 25 mg tablet 2021-07 00:00: 00 Yes [id number] 25mg Take 1 tablet by mouth every 6 (six) hours as needed for Anxiety. [facility] lamoTRIgine 25 mg tablet 2021-07 00:00: 00 Yes [id number] 25mg Take 1 tablet by mouth in the morning. [facility] naltrexone 50 mg tablet 2021-07 00:00: 00 Yes [id number] 50mg Take 1 tablet by mouth in the morning. [facility] hydrOXYzine 25 mg tablet 2021-07 00:00: 00 Yes [id number] 25mg Take 1 tablet by mouth every 6 (six) hours as needed for Anxiety. [facility] lamoTRIgine 25 mg tablet 2021-07- 00:00: 00 Yes [id number] 25mg Take 1 tablet by mouth in the morning. [facility] naltrexone 50 mg tablet 2021-07 00:00: 00 Yes [id number] 50mg Take 1 tablet by mouth in the morning. [facility] hydrOXYzine 25 mg tablet 2021-07 00:00: 00 Yes [id number] 25mg Take 1 tablet by mouth every 6 (six) hours as needed for Anxiety. [facility] lamoTRIgine 25 mg tablet 2021-07 00:00: 00 Yes [id number] 25mg Take 1 tablet by mouth in the morning. [facility] naltrexone 50 mg tablet 2021-07 00:00: 00 Yes [id number] 50mg Take 1 tablet by mouth in the morning. [facility] hydrOXYzine 25 mg tablet 2021-07 00:00: 00 Yes [id number] 25mg Take 1 tablet by mouth every 6 (six) hours as needed for Anxiety. [facility] naltrexone 50 mg tablet 2021-07 00:00: 00 Yes [id number] 50mg Take 1 tablet by mouth in the morning. [facility] naltrexone 50 mg tablet 2021-07 00:00: 00 Yes [id number] 50mg Take 1 tablet by mouth in the morning. [facility] naltrexone 50 mg tablet 2021-07 00:00: 00 Yes [id number] 50mg Take 1 tablet by mouth in the morning. [facility] naltrexone 50 mg tablet 2021-07 00:00: 00 Yes [id number] 50mg Take 1 tablet by mouth in the morning. [facility] naltrexone 50 mg tablet 2021-07 00:00: 00 Yes [id number] 50mg Take 1 tablet by mouth in the morning. [facility] atomoxetine (STRATTERA) 60 mg capsule 2021-07 00:00: 00 09-12 04:59 :00 No [id number] 60mg Take 1 capsule by mouth in the morning for [address] [facility] atomoxetine (STRATTERA) 60 mg capsule 2021-07 00:00: 00 09-12 04:59 :00 No [id number] 60mg Take 1 capsule by mouth in the morning for [address] [facility] atomoxetine (STRATTERA) 60 mg capsule 2021-07 2-12 00:00: 00 09-12 04:59 :00 No [id number] 60mg Take 1 capsule by mouth in the morning for [address] [facility] atomoxetine (STRATTERA) 60 mg capsule 2021-07 2-12 00:00: 00 09-12 04:59 :00 No [id number] 60mg Take 1 capsule by mouth in the morning for [address] [facility] atomoxetine (STRATTERA) 60 mg capsule 2021-07 2-12 00:00: 00 09-12 04:59 :00 No [id number] 60mg Take 1 capsule by mouth in the morning for [address] [facility] atomoxetine (STRATTERA) 60 mg capsule 2021-07 2-12 00:00: 00 09-12 04:59 :00 No [id number] 60mg Take 1 capsule by mouth in the morning for [address] [facility] atomoxetine (STRATTERA) 60 mg capsule 2021-07 2-12 00:00: 00 09-12 04:59 :00 No [id number] 60mg Take 1 capsule by mouth in the morning for [address] [facility] atomoxetine (STRATTERA) 60 mg capsule 2021-07 2-12 00:00: 00 09-12 04:59 :00 No [id number] 60mg Take 1 capsule by mouth in the morning for [address] [facility] atomoxetine (STRATTERA) 60 mg capsule 2021-07 2-12 00:00: 00 09-12 04:59 :00 No [id number] 60mg Take 1 capsule by mouth in the morning for [address] [facility] atomoxetine (STRATTERA) 60 mg capsule 2021-07 2-12 00:00: 00 09-12 04:59 :00 No [id number] 60mg Take 1 capsule by mouth in the morning for [address] [facility] atomoxetine (STRATTERA) 60 mg capsule 2021-07 2-12 00:00: 00 09-12 04:59 :00 No [id number] 60mg Take 1 capsule by mouth in the morning for [address] [facility] atomoxetine (STRATTERA) 60 mg capsule 2021-07 2-12 00:00: 00 09-12 04:59 :00 No [id number] 60mg Take 1 capsule by mouth in the morning for [address] [facility] atomoxetine (STRATTERA) 60 mg capsule 2021-07 2-12 00:00: 00 09-12 04:59 :00 No [id number] 60mg Take 1 capsule by mouth in the morning for [address] [facility] atomoxetine (STRATTERA) 60 mg capsule 2021-07 2 00:00: 00 09-12 04:59 :00 No [id number] 60mg Take 1 capsule by mouth in the morning for [address] [facility] atomoxetine (STRATTERA) 60 mg capsule 2021-07 2-12 00:00: 00 08-22 00:00 :00 No [id number] 60mg Take 1 capsule by mouth in the morning for [address] [facility] naltrexone 50 mg tablet 2021-07 2-12 00:00: 00 08-22 00:00 :00 No [id number] 50mg Take 1 tablet by mouth in the morning. [facility] atomoxetine (STRATTERA) 60 mg capsule 2021-07 2-12 00:00: 00 08-22 00:00 :00 No [id number] 60mg Take 1 capsule by mouth in the morning for [address] [facility] naltrexone 50 mg tablet 2021-07 2-12 00:00: 00 08-22 00:00 :00 No [id number] 50mg Take 1 tablet by mouth in the morning. [facility] atomoxetine (STRATTERA) 60 mg capsule 2021-07 2-12 00:00: 00 08-22 00:00 :00 No [id number] 60mg Take 1 capsule by mouth in the morning for [address] [facility] naltrexone 50 mg tablet 2021-07 2-12 00:00: 00 08-22 00:00 :00 No [id number] 50mg Take 1 tablet by mouth in the morning. [facility] atomoxetine (STRATTERA) 60 mg capsule 2021-07 2-12 00:00: 00 08-22 00:00 :00 No [id number] 60mg Take 1 capsule by mouth in the morning for [address] [facility] naltrexone 50 mg tablet 2021-07 2-12 00:00: 00 08-22 00:00 :00 No [id number] 50mg Take 1 tablet by mouth in the morning. [facility] atomoxetine (STRATTERA) 60 mg capsule 2021-07 2- 00:00: 00 08-22 00:00 :00 No [id number] 60mg Take 1 capsule by mouth in the morning for [address] [facility] naltrexone 50 mg tablet 2021-07 2- 00:00: 00 08-22 00:00 :00 No [id number] 50mg Take 1 tablet by mouth in the morning. [facility] atomoxetine (STRATTERA) 60 mg capsule 2021-07 2- 00:00: 00 08-22 00:00 :00 No [id number] 60mg Take 1 capsule by mouth in the morning for [address] [facility] naltrexone 50 mg tablet 2021-07 2-12 00:00: 00 08-22 00:00 :00 No [id number] 50mg Take 1 tablet by mouth in the morning. [facility] atomoxetine (STRATTERA) 60 mg capsule 2021-07 2-12 00:00: 00 08-22 00:00 :00 No [id number] 60mg Take 1 capsule by mouth in the morning for [address] [facility] naltrexone 50 mg tablet 2021-07 2-12 00:00: 00 08-22 00:00 :00 No [id number] 50mg Take 1 tablet by mouth in the morning. [facility] hydrOXYzine 25 mg tablet 2021-07 2-12 00:00: 00 07-25 00:00 :00 No [id number] 25mg Take 1 tablet by mouth every 6 (six) hours as needed for Anxiety. [facility] hydrOXYzine 25 mg tablet 2021- 2-12 00:00: 00 07-25 00:00 :00 No [id number] 25mg Take 1 tablet by mouth every 6 (six) hours as needed for Anxiety. [facility] hydrOXYzine 25 mg tablet 2021- 2-12 00:00: 00 07-25 00:00 :00 No [id number] 25mg Take 1 tablet by mouth every 6 (six) hours as needed for Anxiety. [facility] hydrOXYzine 25 mg tablet 2021- 2-12 00:00: 00 07-25 00:00 :00 No [id number] 25mg Take 1 tablet by mouth every 6 (six) hours as needed for Anxiety. [facility] hydrOXYzine 25 mg tablet 2021- 2-12 00:00: 00 07-25 00:00 :00 No [id number] 25mg Take 1 tablet by mouth every 6 (six) hours as needed for Anxiety. [facility] hydrOXYzine 25 mg tablet 2021- 2-12 00:00: 00 07-25 00:00 :00 No [id number] 25mg Take 1 tablet by mouth every 6 (six) hours as needed for Anxiety. [facility] hydrOXYzine 25 mg tablet 2021- 2-12 00:00: 00 07-25 00:00 :00 No [id number] 25mg Take 1 tablet by mouth every 6 (six) hours as needed for Anxiety. [facility] lamoTRIgine 25 mg tablet 2021- 2-12 00:00: 00 07-12 00:00 :00 No [id number] 25mg Take 1 tablet by mouth in the morning. [facility] lamoTRIgine 25 mg tablet 2021- 2-12 00:00: 00 07-12 00:00 :00 No [id number] 25mg Take 1 tablet by mouth in the morning. [facility] lamoTRIgine 25 mg tablet 2021 2-12 00:00: 00 07-12 00:00 :00 No [id number] 25mg Take 1 tablet by mouth in the morning. [facility] lamoTRIgine 25 mg tablet 2021-07 00:00: 00 07-12 00:00 :00 No [id number] 25mg Take 1 tablet by mouth in the morning. [facility] lamoTRIgine 25 mg tablet 2021-07 00:00: 00 07-12 00:00 :00 No [id number] 25mg Take 1 tablet by mouth in the morning. [facility] hydrOXYzine (ATARAX) tablet 25 mg 2021-07 05:00: 00 06-01 05:14 :00 No 25mg 25 mg, Oral, ONCE, 1 dose, On Mon05/31/22 at 2300, ARLEN [facility] hydrOXYzine 25 mg tablet 2021-07 00:00: 00 Yes [id number] 25mg Take 1 tablet by mouth every 6 (six) hours as needed for Anxiety. [facility] hydrOXYzine 25 mg tablet 2021-07 00:00: 00 06-13 00:00 :00 No [id number] 25mg Take 1 tablet by mouth every 6 (six) hours as needed for Anxiety. [facility] hydrOXYzine 25 mg tablet 2021-07 00:00: 00 06-13 00:00 :00 No [id number] 25mg Take 1 tablet by mouth every 6 (six) hours as needed for Anxiety. [facility] hydrOXYzine 25 mg tablet 2021-07 00:00: 00 06-13 00:00 :00 No [id number] 25mg Take 1 tablet by mouth every 6 (six) hours as needed for Anxiety. [facility] hydrOXYzine 25 mg tablet 2021-07 00:00: 00 06-13 00:00 :00 No [id number] 25mg Take 1 tablet by mouth every 6 (six) hours as needed for Anxiety. [facility] hydrOXYzine 25 mg tablet 2021-07 00:00: 00 06-13 00:00 :00 No [id number] 25mg Take 1 tablet by mouth every 6 (six) hours as needed for Anxiety. [facility] ARIPiprazol e (ABILIFY MAINTENA) injection SSRR 300 mg 2021-07 17:00: 00 05-19 16:17 :00 No [id number] [facility] ARIPiprazol e (ABILIFY MAINTENA) injection SSRR 300 mg 2021-07 17:00: 00 05-19 16:17 :00 No [id number] 300mg [facility] ARIPiprazol e (ABILIFY MAINTENA) injection SSRR 300 mg 2021-07 17:00: 00 05-19 16:17 :00 No [id number] [facility] ARIPiprazol e (ABILIFY MAINTENA) injection SSRR 300 mg 2021-07 17:00: 00 05-19 16:17 :00 No [id number] 300mg [facility] ARIPiprazol e (ABILIFY MAINTENA) injection SSRR 300 mg 2021-07 17:00: 00 05-19 16:17 :00 No [id number] [facility] 300 mg sers 2021-07 00:00: 00 Yes [facility] ABILIFY MAINTENA 300 mg sers 2021-07 00:00: 00 Yes [facility] ABILIFY MAINTENA 300 mg sers 2021-07 00:00: 00 Yes [facility] ABILIFY MAINTENA 300 mg sers 2021-07 00:00: 00 Yes [facility] ABILIFY MAINTENA 300 mg sers 2021-07 00:00: 00 Yes [facility] ABILIFY MAINTENA 300 mg sers 2021-07 00:00: 00 Yes [facility] ABILIFY MAINTENA 300 mg sers 2021-07 00:00: 00 Yes [facility] ABILIFY MAINTENA 300 mg sers 2021-07 00:00: 00 Yes [facility] ABILIFY MAINTENA 300 mg sers 2021-07 00:00: 00 Yes [facility] ABILIFY MAINTENA 300 mg sers 2021-07 00:00: 00 07-12 00:00 :00 No [facility] ABILIFY MAINTENA 300 mg sers 2021-07 00:00: 00 07-12 00:00 :00 No [facility] ABILIFY MAINTENA 300 mg sers 2021-07 00:00: 00 07-12 00:00 :00 No [facility] ABILIFY MAINTENA 300 mg sers 2021-07 00:00: 00 07-12 00:00 :00 No [facility] ABILIFY MAINTENA 300 mg sers 2021-07 00:00: 00 07-12 00:00 :00 No [facility] ABILIFY MAINTENA 300 mg sers 2021-07 00:00: 00 07-12 00:00 :00 No [facility] atomoxetine 40 mg capsule 2021-07 00:00: 00 Yes [id number] 40mg Take 1 capsule by mouth in the morning. [facility] lamoTRIgine 25 mg tablet 2021-07 00:00: 00 Yes [id number] 25mg Take 1 tablet by mouth in the morning. [facility] atomoxetine 40 mg capsule 2021-07 00:00: 00 Yes [id number] 40mg Take 1 capsule by mouth in the morning. [facility] lamoTRIgine 25 mg tablet 2021-07 00:00: 00 Yes [id number] 25mg Take 1 tablet by mouth in the morning. [facility] atomoxetine 40 mg capsule 2021-07 0 00:00: 00 Yes [id number] 40mg Take 1 capsule by mouth in the morning. [facility] lamoTRIgine 25 mg tablet 2021-07 0 00:00: 00 Yes [id number] 25mg Take 1 tablet by mouth in the morning. [facility] atomoxetine 40 mg capsule 2021-07 0 00:00: 00 Yes [id number] 40mg Take 1 capsule by mouth in the morning. [facility] lamoTRIgine 25 mg tablet 2021-07 0 00:00: 00 Yes [id number] 25mg Take 1 tablet by mouth in the morning. [facility] atomoxetine 40 mg capsule 2021-07 0 00:00: 00 Yes [id number] 40mg Take 1 capsule by mouth in the morning. [facility] lamoTRIgine 25 mg tablet 2021-07 0 00:00: 00 Yes [id number] 25mg Take 1 tablet by mouth in the morning. [facility] atomoxetine 40 mg capsule 2021-07 0 00:00: 00 Yes [id number] 40mg Take 1 capsule by mouth in the morning. [facility] lamoTRIgine 25 mg tablet 2021-07 0 00:00: 00 Yes [id number] 25mg Take 1 tablet by mouth in the morning. [facility] atomoxetine 40 mg capsule 2021-07 0 00:00: 00 Yes [id number] 40mg Take 1 capsule by mouth in the morning. [facility] lamoTRIgine 25 mg tablet 2021-07 0 00:00: 00 Yes [id number] 25mg Take 1 tablet by mouth in the morning. [facility] atomoxetine 40 mg capsule 2021-07 0 00:00: 00 Yes [id number] 40mg Take 1 capsule by mouth in the morning. [facility] lamoTRIgine 25 mg tablet 2021- 0 00:00: 00 Yes [id number] 25mg Take 1 tablet by mouth in the morning. [facility] atomoxetine 40 mg capsule 2021-07 0 00:00: 00 Yes [id number] 40mg Take 1 capsule by mouth in the morning. [facility] lamoTRIgine 25 mg tablet 2021-07 0 00:00: 00 Yes [id number] 25mg Take 1 tablet by mouth in the morning. [facility] naltrexone 50 mg tablet 2021-07 0 00:00: 00 08-01 05:59 :00 No [id number] 50mg Take 1 tablet by mouth in the morning for [address] [facility] naltrexone 50 mg tablet 2021-07 0 00:00: 00 08-01 05:59 :00 No [id number] 50mg Take 1 tablet by mouth in the morning for [address] [facility] naltrexone 50 mg tablet 2021-07 0 00:00: 00 08-01 05:59 :00 No [id number] 50mg Take 1 tablet by mouth in the morning for [address] [facility] naltrexone 50 mg tablet 2021-07 0 00:00: 00 08-01 05:59 :00 No [id number] 50mg Take 1 tablet by mouth in the morning for [address] [facility] naltrexone 50 mg tablet 2021-07 0 00:00: 00 08-01 05:59 :00 No [id number] 50mg Take 1 tablet by mouth in the morning for [address] [facility] naltrexone 50 mg tablet 2021-07 0 00:00: 00 08-01 05:59 :00 No [id number] 50mg Take 1 tablet by mouth in the morning for [address] [facility] naltrexone 50 mg tablet 2021-07 0 00:00: 00 08-01 05:59 :00 No [id number] 50mg Take 1 tablet by mouth in the morning for [address] [facility] naltrexone 50 mg tablet 2021-07 0 00:00: 00 08-01 05:59 :00 No [id number] 50mg Take 1 tablet by mouth in the morning for [address] [facility] naltrexone 50 mg tablet 2021-07 0-31 00:00: 00 08-01 05:59 :00 No [id number] 50mg Take 1 tablet by mouth in the morning for [address] [facility] naltrexone 50 mg tablet 2021-07 0-31 00:00: 00 06-13 00:00 :00 No [id number] 50mg Take 1 tablet by mouth in the morning for [address] [facility] atomoxetine 40 mg capsule 2021-07 0-31 00:00: 00 06-13 00:00 :00 No [id number] 40mg Take 1 capsule by mouth in the morning. [facility] lamoTRIgine 25 mg tablet 2021-07 0-31 00:00: 00 06-13 00:00 :00 No [id number] 25mg Take 1 tablet by mouth in the morning. [facility] naltrexone 50 mg tablet 2021-07 0-31 00:00: 00 06-13 00:00 :00 No [id number] 50mg Take 1 tablet by mouth in the morning for [address] [facility] atomoxetine 40 mg capsule 2021-07 0-31 00:00: 00 06-13 00:00 :00 No [id number] 40mg Take 1 capsule by mouth in the morning. [facility] lamoTRIgine 25 mg tablet 2021-07 0-31 00:00: 00 06-13 00:00 :00 No [id number] 25mg Take 1 tablet by mouth in the morning. [facility] naltrexone 50 mg tablet 2021-07 0-31 00:00: 00 06-13 00:00 :00 No [id number] 50mg Take 1 tablet by mouth in the morning for [address] [facility] atomoxetine 40 mg capsule 2021-07 0-31 00:00: 00 06-13 00:00 :00 No [id number] 40mg Take 1 capsule by mouth in the morning. [facility] lamoTRIgine 25 mg tablet 2021-07 0-31 00:00: 00 06-13 00:00 :00 No [id number] 25mg Take 1 tablet by mouth in the morning. [facility] naltrexone 50 mg tablet 2021-07 0-31 00:00: 00 06-13 00:00 :00 No [id number] 50mg Take 1 tablet by mouth in the morning for [address] [facility] atomoxetine 40 mg capsule 2021-07 0-31 00:00: 00 06-13 00:00 :00 No [id number] 40mg Take 1 capsule by mouth in the morning. [facility] lamoTRIgine 25 mg tablet 2021-07 0-31 00:00: 00 06-13 00:00 :00 No [id number] 25mg Take 1 tablet by mouth in the morning. [facility] naltrexone 50 mg tablet 2021-07 0-31 00:00: 00 06-13 00:00 :00 No [id number] 50mg Take 1 tablet by mouth in the morning for [address] [facility] atomoxetine 40 mg capsule 2021-07 0-31 00:00: 00 06-13 00:00 :00 No [id number] 40mg Take 1 capsule by mouth in the morning. [facility] lamoTRIgine 25 mg tablet 2021-07 0-31 00:00: 00 06-13 00:00 :00 No [id number] 25mg Take 1 tablet by mouth in the morning. [facility] ARIPiprazol e (ABILIFY MAINTENA) injection SSRR 300 mg 2021-07 0-20 15:15: 00 04-21 15:46 :00 [id number] [facility] ARIPiprazol e (ABILIFY MAINTENA) injection SSRR 300 mg 2021-07 0-20 15:15: 00 04-21 15:46 :00 No [id number] 300mg [facility] ARIPiprazol e (ABILIFY MAINTENA) injection SSRR 300 mg 2021-07 0-20 15:15: 04-21 15:46 :00 No [id number] 300mg [facility] ARIPiprazol e (ABILIFY MAINTENA) injection SSRR 300 mg 2021-07 15:15: 00 04-21 15:46 :00 No [id number] [facility] SSRR 300 mg 2021-07 15:15: 00 04-21 15:46 :00 No [id number] 300mg [facility] ARIPiprazol e (ABILIFY MAINTENA) injection SSRR 300 mg 2021-07 15:15: 00 04-21 15:46 :00 No [id number] [facility] ARIPiprazol e (ABILIFY MAINTENA) injection SSRR 300 mg 2021-07 15:45: 00 04-21 03:44 :00 No [id number] [facility] lamoTRIgine 25 mg tablet 2021-07 0-18 00:00: 00 Yes 25mg Take 1 tablet by mouth in the morning. [facility] lamoTRIgine 25 mg tablet 2021-07 0-18 00:00: 00 Yes 25mg Take 1 tablet by mouth in the morning. [facility] lamoTRIgine 25 mg tablet 2021-07 0-18 00:00: 00 Yes 25mg Take 1 tablet by mouth in the morning. [facility] lamoTRIgine 25 mg tablet 2021-07 0-18 00:00: 00 Yes 25mg Take 1 tablet by mouth in the morning. [facility] lamoTRIgine 25 mg tablet 2021-07 0-18 00:00: 00 Yes 25mg Take 1 tablet by mouth in the morning. [facility] lamoTRIgine 25 mg tablet 2021- 0-18 00:00: 00 Yes 25mg Take 1 tablet by mouth in the morning. [facility] lamoTRIgine 25 mg tablet 2021-07 0-18 00:00: 00 Yes 25mg Take 1 tablet by mouth in the morning. [facility] lamoTRIgine 25 mg tablet 2021-1 0-18 00:00: 00 Yes 25mg Take 1 tablet by mouth in the morning. [facility] lamoTRIgine 25 mg tablet 2-1 0-18 00:00: 00 Yes 25mg Take 1 tablet by mouth in the morning. [facility] lamoTRIgine 25 mg tablet 2-1 0-18 00:00: 00 Yes 25mg Take 1 tablet by mouth in the morning. [facility] lamoTRIgine 25 mg tablet 2021-1 0-18 00:00: 00 Yes 25mg Take 1 tablet by mouth in the morning. [facility] lamoTRIgine 25 mg tablet 2021- 0-18 00:00: 00 Yes 25mg Take 1 tablet by mouth in the morning. [facility] lamoTRIgine 25 mg tablet 2021- 0-18 00:00: 00 05-02 00:00 :00 No 25mg Take 1 tablet by mouth in the morning. [facility] lamoTRIgine 25 mg tablet 2021- 0-18 00:00: 00 05-02 00:00 :00 No 25mg Take 1 tablet by mouth in the morning. [facility] lamoTRIgine 25 mg tablet 2021- 0-18 00:00: 00 05-02 00:00 :00 No 25mg Take 1 tablet by mouth in the morning. [facility] lamoTRIgine 25 mg tablet 2021- 0-18 00:00: 00 05-02 00:00 :00 No 25mg Take 1 tablet by mouth in the morning. [facility] atomoxetine 40 mg capsule 2021- 0-13 00:00: 00 Yes [id number] 40mg Take 1 capsule by mouth in the morning. [facility] atomoxetine 40 mg capsule 2021- 0-13 00:00: 00 Yes [id number] 40mg Take 1 capsule by mouth in the morning. [facility] atomoxetine 40 mg capsule 2021- 0-13 00:00: 00 Yes [id number] 40mg Take 1 capsule by mouth in the morning. [facility] atomoxetine 40 mg capsule 2021- 0-13 00:00: 00 Yes [id number] 40mg Take 1 capsule by mouth in the morning. [facility] atomoxetine 40 mg capsule 2021- 0-13 00:00: 00 Yes [id number] 40mg Take 1 capsule by mouth in the morning. [facility] atomoxetine 40 mg capsule 2021- 0-13 00:00: 00 Yes [id number] 40mg Take 1 capsule by mouth in the morning. [facility] atomoxetine 40 mg capsule 2021- 0-13 00:00: 00 Yes [id number] 40mg Take 1 capsule by mouth in the morning. [facility] atomoxetine 40 mg capsule 2021- 0-13 00:00: 00 Yes [id number] 40mg Take 1 capsule by mouth in the morning. [facility] atomoxetine 40 mg capsule 2021- 0-13 00:00: 00 Yes [id number] 40mg Take 1 capsule by mouth in the morning. [facility] atomoxetine 40 mg capsule 2021- 0-13 00:00: 00 Yes [id number] 40mg Take 1 capsule by mouth in the morning. [facility] atomoxetine 40 mg capsule 2021- 0-13 00:00: 00 Yes [id number] 40mg Take 1 capsule by mouth in the morning. [facility] atomoxetine 40 mg capsule 2021- 0-13 00:00: 00 Yes [id number] 40mg Take 1 capsule by mouth in the morning. [facility] atomoxetine 40 mg capsule 2021- 0-13 00:00: 00 Yes [id number] 40mg Take 1 capsule by mouth in the morning. [facility] atomoxetine 40 mg capsule 2021- 0-13 00:00: 00 Yes [id number] 40mg Take 1 capsule by mouth in the morning. [facility] atomoxetine 40 mg capsule 2021- 0-13 00:00: 00 Yes [id number] 40mg Take 1 capsule by mouth in the morning. [facility] atomoxetine 40 mg capsule 2021-07 0-13 00:00: 00 Yes [id number] 40mg Take 1 capsule by mouth in the morning. [facility] atomoxetine 40 mg capsule 2021-07 0-13 00:00: 00 Yes [id number] 40mg Take 1 capsule by mouth in the morning. [facility] atomoxetine 40 mg capsule 2021-07 0-13 00:00: 00 Yes [id number] 40mg Take 1 capsule by mouth in the morning. [facility] atomoxetine 40 mg capsule 2021-07 0-13 00:00: 00 05-02 00:00 :00 No [id number] 40mg Take 1 capsule by mouth in the morning. [facility] atomoxetine 40 mg capsule 2021-07 0-13 00:00: 00 05-02 00:00 :00 No [id number] 40mg Take 1 capsule by mouth in the morning. [facility] atomoxetine 40 mg capsule 2021-07 0- 00:00: 00 05-02 00:00 :00 No [id number] 40mg Take 1 capsule by mouth in the morning. [facility] atomoxetine 40 mg capsule 2021-07 0- 00:00: 00 05-02 00:00 :00 No [id number] 40mg Take 1 capsule by mouth in the morning. [facility] NaCl 0.9% (NS) bolus infusion 1,000 mL 2021-07 0-09 23:45: 00 04-11 03:09 :00 No 1000mL at 999 mL/hr, 1,000 mL, IV Infusion, ONCE, 1 dose, On 04/10/22 at 1845, ARLEN [facility] atomoxetine 40 mg capsule 2021-07 0-07 00:00: 00 Yes 40mg Take 1 capsule by mouth in the morning. [facility] lamoTRIgine 25 mg tablet 2021-07 0-07 00:00: 00 Yes 25mg Take 1 tablet by mouth in the morning. [facility] atomoxetine 40 mg capsule 2021-07 0-07 00:00: 00 Yes 40mg Take 1 capsule by mouth in the morning. [facility] lamoTRIgine 25 mg tablet 2021-07 0- 00:00: 00 Yes 25mg Take 1 tablet by mouth in the morning. [facility] atomoxetine 40 mg capsule 2021-07 0 00:00: 00 Yes 40mg Take 1 capsule by mouth in the morning. [facility] lamoTRIgine 25 mg tablet 2021-07 0 00:00: 00 Yes 25mg Take 1 tablet by mouth in the morning. [facility] atomoxetine 40 mg capsule 2021-07 0 00:00: 00 Yes 40mg Take 1 capsule by mouth in the morning. [facility] lamoTRIgine 25 mg tablet 2021-07 0 00:00: 00 Yes 25mg Take 1 tablet by mouth in the morning. [facility] lamoTRIgine 25 mg tablet 2021-07 0 00:00: 00 Yes 25mg Take 1 tablet by mouth in the morning. [facility] lamoTRIgine 25 mg tablet 2021-07 0 00:00: 00 Yes 25mg Take 1 tablet by mouth in the morning. [facility] lamoTRIgine 25 mg tablet 2021-07 0 00:00: 00 Yes 25mg Take 1 tablet by mouth in the morning. [facility] lamoTRIgine 25 mg tablet 2021-07 0 00:00: 00 Yes 25mg Take 1 tablet by mouth in the morning. [facility] lamoTRIgine 25 mg tablet 2021-07 0 00:00: 00 Yes 25mg Take 1 tablet by mouth in the morning. [facility] lamoTRIgine 25 mg tablet 2021-07 0 00:00: 00 Yes 25mg Take 1 tablet by mouth in the morning. [facility] polyethylen e glycol 3350 17 gram powder 2021-07 0 00:00: 00 05-09 05:59 :00 No [id number] 17g Take 1 Packet by mouth in the morning for [address] [facility] polyethylen e glycol 3350 17 gram powder 2021-07 0- 00:00: 00 05-09 05:59 :00 No [id number] 17g Take 1 Packet by mouth in the morning for [address] [facility] polyethylen e glycol 3350 17 gram powder 2021-07 0-07 00:00: 00 05-09 05:59 :00 No [id number] 17g Take 1 Packet by mouth in the morning for [address] [facility] polyethylen e glycol 3350 17 gram powder 2021-07 0-07 00:00: 00 05-09 05:59 :00 No [id number] 17g Take 1 Packet by mouth in the morning for [address] [facility] polyethylen e glycol 3350 17 gram powder 2021-07 0-07 00:00: 00 05-09 05:59 :00 No [id number] 17g Take 1 Packet by mouth in the morning for [address] [facility] polyethylen e glycol 3350 17 gram powder 2021-07 0-07 00:00: 00 05-09 05:59 :00 No [id number] 17g Take 1 Packet by mouth in the morning for [address] [facility] polyethylen e glycol 3350 17 gram powder 2021-07 0-07 00:00: 00 05-09 05:59 :00 No [id number] 17g Take 1 Packet by mouth in the morning for [address] [facility] polyethylen e glycol 3350 17 gram powder 2021-07 0-07 00:00: 00 05-09 05:59 :00 No [id number] 17g Take 1 Packet by mouth in the morning for [address] [facility] polyethylen e glycol 3350 17 gram powder 2021-07 0-07 00:00: 00 05-09 05:59 :00 No [id number] 17g Take 1 Packet by mouth in the morning for [address] [facility] polyethylen e glycol 3350 17 gram powder 2021-07 0-07 00:00: 00 05-09 05:59 :00 No [id number] 17g Take 1 Packet by mouth in the morning for [address] [facility] polyethylen e glycol 3350 17 gram powder 2021-07 0-07 00:00: 00 05-09 05:59 :00 No [id number] 17g Take 1 Packet by mouth in the morning for [address] [facility] polyethylen e glycol 3350 17 gram powder 2021-07 0-07 00:00: 00 05-09 05:59 :00 No [id number] 17g Take 1 Packet by mouth in the morning for [address] [facility] polyethylen e glycol 3350 17 gram powder 2021-07 0-07 00:00: 00 05-09 05:59 :00 No [id number] 17g Take 1 Packet by mouth in the morning for [address] [facility] polyethylen e glycol 3350 17 gram powder 2021-07 0-07 00:00: 00 05-09 05:59 :00 No [id number] 17g Take 1 Packet by mouth in the morning for [address] [facility] polyethylen e glycol 3350 17 gram powder 2021-07 0-07 00:00: 00 05-09 05:59 :00 No [id number] 17g Take 1 Packet by mouth in the morning for [address] [facility] polyethylen e glycol 3350 17 gram powder 2021-07 0-07 00:00: 00 05-09 05:59 :00 No [id number] 17g Take 1 Packet by mouth in the morning for [address] [facility] polyethylen e glycol 3350 17 gram powder 2021-07 0-07 00:00: 00 05-09 05:59 :00 No [id number] 17g Take 1 Packet by mouth in the morning for [address] [facility] polyethylen e glycol 3350 17 gram powder 2021-07 0-07 00:00: 00 05-09 05:59 :00 No [id number] 17g Take 1 Packet by mouth in the morning for [address] [facility] polyethylen e glycol 3350 17 gram powder 2021-07 0-07 00:00: 00 05-09 05:59 :00 No [id number] 17g Take 1 Packet by mouth in the morning for [address] [facility] polyethylen e glycol 3350 17 gram powder 2021-07 0-07 00:00: 00 05-09 05:59 :00 No [id number] 17g Take 1 Packet by mouth in the morning for [address] [facility] polyethylen e glycol 3350 17 gram powder 2021-07 0-07 00:00: 00 05-09 05:59 :00 No [id number] 17g Take 1 Packet by mouth in the morning for [address] [facility] polyethylen e glycol 3350 17 gram powder 2021-07 0-07 00:00: 00 05-09 05:59 :00 No [id number] 17g Take 1 Packet by mouth in the morning for [address] [facility] polyethylen e glycol 3350 17 gram powder 2021-07 0-07 00:00: 00 05-09 05:59 :00 No [id number] 17g Take 1 Packet by mouth in the morning for [address] [facility] polyethylen e glycol 3350 17 gram powder 2021-07 0-07 00:00: 00 05-09 05:59 :00 No [id number] 17g Take 1 Packet by mouth in the morning for [address] [facility] polyethylen e glycol 3350 17 gram powder 2021-07 0-07 00:00: 00 05-09 05:59 :00 No [id number] 17g Take 1 Packet by mouth in the morning for [address] [facility] polyethylen e glycol 3350 17 gram powder 2021-07 0-07 00:00: 00 05-09 05:59 :00 No [id number] 17g Take 1 Packet by mouth in the morning for [address] [facility] lamoTRIgine 25 mg tablet 2021-07 0-07 00:00: 00 04-19 00:00 :00 No 25mg Take 1 tablet by mouth in the morning. [facility] lamoTRIgine 25 mg tablet 2021-1 0-07 00:00: 00 04-19 00:00 :00 No 25mg Take 1 tablet by mouth in the morning. [facility] lamoTRIgine 25 mg tablet 2021-1 0-07 00:00: 00 04-19 00:00 :00 No 25mg Take 1 tablet by mouth in the morning. [facility] lamoTRIgine 25 mg tablet 2021-1 0-07 00:00: 00 04-19 00:00 :00 No 25mg Take 1 tablet by mouth in the morning. [facility] lamoTRIgine 25 mg tablet 2021- 0-07 00:00: 00 04-19 00:00 :00 No 25mg Take 1 tablet by mouth in the morning. [facility] lamoTRIgine 25 mg tablet 2021- 0-07 00:00: 00 04-19 00:00 :00 No 25mg Take 1 tablet by mouth in the morning. [facility] lamoTRIgine 25 mg tablet 2021-1 0-07 00:00: 00 04-19 00:00 :00 No 25mg Take 1 tablet by mouth in the morning. [facility] lamoTRIgine 25 mg tablet 2021- 0-07 00:00: 00 04-19 00:00 :00 No 25mg Take 1 tablet by mouth in the morning. [facility] lamoTRIgine 25 mg tablet 2021-1 0-07 00:00: 00 04-19 00:00 :00 No 25mg Take 1 tablet by mouth in the morning. [facility] lamoTRIgine 25 mg tablet 2021-1 0-07 00:00: 00 04-19 00:00 :00 No 25mg Take 1 tablet by mouth in the morning. [facility] lamoTRIgine 25 mg tablet 2021-1 0-07 00:00: 00 04-19 00:00 :00 No 25mg Take 1 tablet by mouth in the morning. [facility] tamsulosin 0.4 mg 24 hr capsule 2021-1 0-07 00:00: 00 04-16 04:59 :00 No [id number] .4mg Take 1 capsule by mouth in the morning for [address] [facility] tamsulosin 0.4 mg 24 hr capsule 2021-07 0-07 00:00: 00 04-16 04:59 :00 No [id number] .4mg Take 1 capsule by mouth in the morning for [address] [facility] tamsulosin 0.4 mg 24 hr capsule 2021-07 0-07 00:00: 00 04-16 04:59 :00 No [id number] .4mg Take 1 capsule by mouth in the morning for [address] [facility] tamsulosin 0.4 mg 24 hr capsule 2021-07 0-07 00:00: 00 04-16 04:59 :00 No [id number] .4mg Take 1 capsule by mouth in the morning for [address] [facility] tamsulosin 0.4 mg 24 hr capsule 2021-07 0-07 00:00: 00 04-16 04:59 :00 No [id number] .4mg Take 1 capsule by mouth in the morning for [address] [facility] tamsulosin 0.4 mg 24 hr capsule 2021-07 0-07 00:00: 00 04-16 04:59 :00 No [id number] .4mg Take 1 capsule by mouth in the morning for [address] [facility] tamsulosin 0.4 mg 24 hr capsule 2021-07 0-07 00:00: 00 04-16 04:59 :00 No [id number] .4mg Take 1 capsule by mouth in the morning for [address] [facility] tamsulosin 0.4 mg 24 hr capsule 2021-07 0-07 00:00: 00 04-16 04:59 :00 No [id number] .4mg Take 1 capsule by mouth in the morning for [address] [facility] tamsulosin 0.4 mg 24 hr capsule 2021-07 0-07 00:00: 00 04-16 04:59 :00 No [id number] .4mg Take 1 capsule by mouth in the morning for [address] [facility] tamsulosin 0.4 mg 24 hr capsule 2021-07 0-07 00:00: 00 04-16 04:59 :00 No [id number] .4mg Take 1 capsule by mouth in the morning for [address] [facility] tamsulosin 0.4 mg 24 hr capsule 2021-07 0-07 00:00: 00 04-16 04:59 :00 No [id number] .4mg Take 1 capsule by mouth in the morning for [address] [facility] tamsulosin 0.4 mg 24 hr capsule 2021-07 0-07 00:00: 00 04-16 04:59 :00 No [id number] .4mg Take 1 capsule by mouth in the morning for [address] [facility] tamsulosin 0.4 mg 24 hr capsule 2021-07 0-07 00:00: 00 04-16 04:59 :00 No [id number] .4mg Take 1 capsule by mouth in the morning for [address] [facility] tamsulosin 0.4 mg 24 hr capsule 2021-07 0-07 00:00: 00 04-16 04:59 :00 No [id number] .4mg Take 1 capsule by mouth in the morning for [address] [facility] tamsulosin 0.4 mg 24 hr capsule 2021-07 0-07 00:00: 00 04-16 04:59 :00 No [id number] .4mg Take 1 capsule by mouth in the morning for [address] [facility] tamsulosin 0.4 mg 24 hr capsule 2021-07 0-07 00:00: 00 04-16 04:59 :00 No [id number] .4mg Take 1 capsule by mouth in the morning for [address] [facility] tamsulosin 0.4 mg 24 hr capsule 2021-07 0-07 00:00: 00 04-16 04:59 :00 No [id number] .4mg Take 1 capsule by mouth in the morning for [address] [facility] tamsulosin 0.4 mg 24 hr capsule 2021- 0-07 00:00: 00 04-16 04:59 :00 No [id number] .4mg Take 1 capsule by mouth in the morning for [address] [facility] tamsulosin 0.4 mg 24 hr capsule 2021- 0-07 00:00: 00 04-16 04:59 :00 No [id number] .4mg Take 1 capsule by mouth in the morning for [address] [facility] tamsulosin 0.4 mg 24 hr capsule 2021- 0-07 00:00: 00 04-16 04:59 :00 No [id number] .4mg Take 1 capsule by mouth in the morning for [address] [facility] tamsulosin 0.4 mg 24 hr capsule 2021-07 0-07 00:00: 00 04-16 04:59 :00 No [id number] .4mg Take 1 capsule by mouth in the morning for [address] [facility] atomoxetine 40 mg capsule 2021-07 0-07 00:00: 00 04-14 00:00 :00 No 40mg Take 1 capsule by mouth in the morning. [facility] atomoxetine 40 mg capsule 2021-07 0-07 00:00: 00 04-14 00:00 :00 No 40mg Take 1 capsule by mouth in the morning. [facility] atomoxetine 40 mg capsule 2021- 0-07 00:00: 00 04-14 00:00 :00 No 40mg Take 1 capsule by mouth in the morning. [facility] atomoxetine 40 mg capsule 2021- 0-07 00:00: 00 04-14 00:00 :00 No 40mg Take 1 capsule by mouth in the morning. [facility] atomoxetine 40 mg capsule 2021- 0-07 00:00: 00 04-14 00:00 :00 No 40mg Take 1 capsule by mouth in the morning. [facility] atomoxetine 40 mg capsule 2021- 0-07 00:00: 00 04-14 00:00 :00 No 40mg Take 1 capsule by mouth in the morning. [facility] 2021- 0-07 00:00: 00 04-14 00:00 :00 No 40mg Take 1 capsule by mouth in the morning. [facility] 2021- 0-07 00:00: 00 04-14 00:00 :00 No 40mg Take 1 capsule by mouth in the morning. [facility] 2021- 0-07 00:00: 00 04-14 00:00 :00 No 40mg Take 1 capsule by mouth in the morning. [facility] atomoxetine 40 mg capsule 2021- 0-07 00:00: 00 04-14 00:00 :00 No 40mg Take 1 capsule by mouth in the morning. [facility] atomoxetine 40 mg capsule 2021- 0-07 00:00: 00 04-14 00:00 :00 No 40mg Take 1 capsule by mouth in the morning. [facility] atomoxetine 40 mg capsule 2021-1 0-07 00:00: 00 04-14 00:00 :00 No 40mg Take 1 capsule by mouth in the morning. [facility] atomoxetine 40 mg capsule 2021-1 0-07 00:00: 00 04-14 00:00 :00 No 40mg Take 1 capsule by mouth in the morning. [facility] atomoxetine 40 mg capsule 2021-1 0-07 00:00: 00 04-14 00:00 :00 No 40mg Take 1 capsule by mouth in the morning. [facility] atomoxetine 40 mg capsule 2021-1 0-07 00:00: 00 04-14 00:00 :00 No 40mg Take 1 capsule by mouth in the morning. [facility] atomoxetine 40 mg capsule 2-1 0-07 00:00: 00 04-14 00:00 :00 No 40mg Take 1 capsule by mouth in the morning. [facility] atomoxetine 40 mg capsule 2021-07 0-07 00:00: 00 - 00:00 :00 No 40mg Take 1 capsule by mouth in the morning. [facility] traZODone (DESYREL) tablet 50 mg 2021-07 0-06 02:00: 00 Yes 50mg 50 mg, Oral, QHS, First dose on Mon04/06/22 at 2100, Until Discontinu ed, Routine [facility] acetaminoph en 500 mg tablet 2021-07 0-06 00:00: 00 Yes [id number] 1000mg Take 2 tablets by mouth every 8 (eight) hours as needed for Pain. [facility] traZODone 50 mg tablet 2021-07 0- 00:00: 00 Yes 50mg Take 1 tablet by mouth at bedtime. [facility] methocarbam oL 500 mg tablet 2021-07 0- 00:00: 00 Yes [id number] 500mg Take 1 tablet by mouth 4 (four) times daily as needed (muscle spasms). [facility] ibuprofen 600 mg tablet 2021-07 0 00:00: 00 Yes [id number] 600mg Take 1 tablet by mouth every 6 (six) hours as needed for Pain (scale 4-6). [facility] acetaminoph en 500 mg tablet 2021-07 0 00:00: 00 Yes [id number] 1000mg Take 2 tablets by mouth every 8 (eight) hours as needed for Pain. [facility] traZODone 50 mg tablet 2021-07 0-06 00:00: 00 Yes 50mg Take 1 tablet by mouth at bedtime. [facility] methocarbam oL 500 mg tablet 2021-07 0-06 00:00: 00 Yes [id number] 500mg Take 1 tablet by mouth 4 (four) times daily as needed (muscle spasms). [facility] ibuprofen 600 mg tablet 2021-07 0-06 00:00: 00 Yes [id number] 600mg Take 1 tablet by mouth every 6 (six) hours as needed for Pain (scale 4-6). [facility] acetaminoph en 500 mg tablet 2021-07 0-06 00:00: 00 Yes [id number] 1000mg Take 2 tablets by mouth every 8 (eight) hours as needed for Pain. [facility] traZODone 50 mg tablet 2021-07 0- 00:00: 00 Yes 50mg Take 1 tablet by mouth at bedtime. [facility] methocarbam oL 500 mg tablet 2021-07 0- 00:00: 00 Yes [id number] 500mg Take 1 tablet by mouth 4 (four) times daily as needed (muscle spasms). [facility] ibuprofen 600 mg tablet 2021-07 0 00:00: 00 Yes [id number] 600mg Take 1 tablet by mouth every 6 (six) hours as needed for Pain (scale 4-6). [facility] acetaminoph en 500 mg tablet 2021-07 0 00:00: 00 Yes [id number] 1000mg Take 2 tablets by mouth every 8 (eight) hours as needed for Pain. [facility] traZODone 50 mg tablet 2021-07 0 00:00: 00 Yes 50mg Take 1 tablet by mouth at bedtime. [facility] methocarbam oL 500 mg tablet 2021-07 0 00:00: 00 Yes [id number] 500mg Take 1 tablet by mouth 4 (four) times daily as needed (muscle spasms). [facility] ibuprofen 600 mg tablet 2021-07 0 00:00: 00 Yes [id number] 600mg Take 1 tablet by mouth every 6 (six) hours as needed for Pain (scale 4-6). [facility] acetaminoph en 500 mg tablet 2021-07 0 00:00: 00 Yes [id number] 1000mg Take 2 tablets by mouth every 8 (eight) hours as needed for Pain. [facility] traZODone 50 mg tablet 2021-07 0- 00:00: 00 Yes 50mg Take 1 tablet by mouth at bedtime. [facility] methocarbam oL 500 mg tablet 2021-07 0- 00:00: 00 Yes [id number] 500mg Take 1 tablet by mouth 4 (four) times daily as needed (muscle spasms). [facility] ibuprofen 600 mg tablet 2021-07 0-06 00:00: 00 Yes [id number] 600mg Take 1 tablet by mouth every 6 (six) hours as needed for Pain (scale 4-6). [facility] acetaminoph en 500 mg tablet 2021-07 0-06 00:00: 00 Yes [id number] 1000mg Take 2 tablets by mouth every 8 (eight) hours as needed for Pain. [facility] traZODone 50 mg tablet 2021-07 0-06 00:00: 00 Yes 50mg Take 1 tablet by mouth at bedtime. [facility] methocarbam oL 500 mg tablet 2021-07 0- 00:00: 00 Yes [id number] 500mg Take 1 tablet by mouth 4 (four) times daily as needed (muscle spasms). [facility] ibuprofen 600 mg tablet 2021-07 0 00:00: 00 Yes [id number] 600mg Take 1 tablet by mouth every 6 (six) hours as needed for Pain (scale 4-6). [facility] acetaminoph en 500 mg tablet 2021-07 0 00:00: 00 Yes [id number] 1000mg Take 2 tablets by mouth every 8 (eight) hours as needed for Pain. [facility] traZODone 50 mg tablet 2021-07 0 00:00: 00 Yes 50mg Take 1 tablet by mouth at bedtime. [facility] methocarbam oL 500 mg tablet 2021-07 0- 00:00: 00 Yes [id number] 500mg Take 1 tablet by mouth 4 (four) times daily as needed (muscle spasms). [facility] ibuprofen 600 mg tablet 2021-07 0-06 00:00: 00 Yes [id number] 600mg Take 1 tablet by mouth every 6 (six) hours as needed for Pain (scale 4-6). [facility] acetaminoph en 500 mg tablet 2021-07 0-06 00:00: 00 Yes [id number] 1000mg Take 2 tablets by mouth every 8 (eight) hours as needed for Pain. [facility] traZODone 50 mg tablet 2021-07 0- 00:00: 00 Yes 50mg Take 1 tablet by mouth at bedtime. [facility] methocarbam oL 500 mg tablet 2021-07 0- 00:00: 00 Yes [id number] 500mg Take 1 tablet by mouth 4 (four) times daily as needed (muscle spasms). [facility] ibuprofen 600 mg tablet 2021-07 0- 00:00: 00 Yes [id number] 600mg Take 1 tablet by mouth every 6 (six) hours as needed for Pain (scale 4-6). [facility] acetaminoph en 500 mg tablet 2021-07 0 00:00: 00 Yes [id number] 1000mg Take 2 tablets by mouth every 8 (eight) hours as needed for Pain. [facility] traZODone 50 mg tablet 2021-07 0 00:00: 00 Yes 50mg Take 1 tablet by mouth at bedtime. [facility] methocarbam oL 500 mg tablet 2021-07 0 00:00: 00 Yes [id number] 500mg Take 1 tablet by mouth 4 (four) times daily as needed (muscle spasms). [facility] ibuprofen 600 mg tablet 2021-07 0 00:00: 00 Yes [id number] 600mg Take 1 tablet by mouth every 6 (six) hours as needed for Pain (scale 4-6). [facility] acetaminoph en 500 mg tablet 2021-07 0- 00:00: 00 Yes [id number] 1000mg Take 2 tablets by mouth every 8 (eight) hours as needed for Pain. [facility] traZODone 50 mg tablet 2021-07 0- 00:00: 00 Yes 50mg Take 1 tablet by mouth at bedtime. [facility] methocarbam oL 500 mg tablet 2021-07 0- 00:00: 00 Yes [id number] 500mg Take 1 tablet by mouth 4 (four) times daily as needed (muscle spasms). [facility] ibuprofen 600 mg tablet 2021-07 0- 00:00: 00 Yes [id number] 600mg Take 1 tablet by mouth every 6 (six) hours as needed for Pain (scale 4-6). [facility] acetaminoph en 500 mg tablet 2021-07 0- 00:00: 00 Yes [id number] 1000mg Take 2 tablets by mouth every 8 (eight) hours as needed for Pain. [facility] traZODone 50 mg tablet 2021-07 0- 00:00: 00 Yes 50mg Take 1 tablet by mouth at bedtime. [facility] methocarbam oL 500 mg tablet 2021-07 0- 00:00: 00 Yes [id number] 500mg Take 1 tablet by mouth 4 (four) times daily as needed (muscle spasms). [facility] ibuprofen 600 mg tablet 2021-07 0 00:00: 00 Yes [id number] 600mg Take 1 tablet by mouth every 6 (six) hours as needed for Pain (scale 4-6). [facility] acetaminoph en 500 mg tablet 2021-07 0 00:00: 00 Yes [id number] 1000mg Take 2 tablets by mouth every 8 (eight) hours as needed for Pain. [facility] traZODone 50 mg tablet 2021-07 0 00:00: 00 Yes 50mg Take 1 tablet by mouth at bedtime. [facility] methocarbam oL 500 mg tablet 2021-07 0 00:00: 00 Yes [id number] 500mg Take 1 tablet by mouth 4 (four) times daily as needed (muscle spasms). [facility] ibuprofen 600 mg tablet 2021-07 0- 00:00: 00 Yes [id number] 600mg Take 1 tablet by mouth every 6 (six) hours as needed for Pain (scale 4-6). [facility] acetaminoph en 500 mg tablet 2021-07 0- 00:00: 00 Yes [id number] 1000mg Take 2 tablets by mouth every 8 (eight) hours as needed for Pain. [facility] traZODone 50 mg tablet 2021-07 0- 00:00: 00 Yes 50mg Take 1 tablet by mouth at bedtime. [facility] methocarbam oL 500 mg tablet 2021-07 0 00:00: 00 Yes [id number] 500mg Take 1 tablet by mouth 4 (four) times daily as needed (muscle spasms). [facility] ibuprofen 600 mg tablet 2021-07 0 00:00: 00 Yes [id number] 600mg Take 1 tablet by mouth every 6 (six) hours as needed for Pain (scale 4-6). [facility] acetaminoph en 500 mg tablet 2021-07 0 00:00: 00 Yes [id number] 1000mg Take 2 tablets by mouth every 8 (eight) hours as needed for Pain. [facility] traZODone 50 mg tablet 2021-07 0 00:00: 00 Yes 50mg Take 1 tablet by mouth at bedtime. [facility] methocarbam oL 500 mg tablet 2021-07 00:00: 00 Yes [id number] 500mg Take 1 tablet by mouth 4 (four) times daily as needed (muscle spasms). [facility] ibuprofen 600 mg tablet 2021-07 00:00: 00 Yes [id number] 600mg Take 1 tablet by mouth every 6 (six) hours as needed for Pain (scale 4-6). [facility] acetaminoph en 500 mg tablet 2021-07 0 00:00: 00 Yes [id number] 1000mg Take 2 tablets by mouth every 8 (eight) hours as needed for Pain. [facility] traZODone 50 mg tablet 2021-07 0 00:00: 00 Yes 50mg Take 1 tablet by mouth at bedtime. [facility] methocarbam oL 500 mg tablet 2021-07 0 00:00: 00 Yes [id number] 500mg Take 1 tablet by mouth 4 (four) times daily as needed (muscle spasms). [facility] ibuprofen 600 mg tablet 2021-07 0 00:00: 00 Yes [id number] 600mg Take 1 tablet by mouth every 6 (six) hours as needed for Pain (scale 4-6). [facility] acetaminoph en 500 mg tablet 2021-07 0 00:00: 00 Yes [id number] 1000mg Take 2 tablets by mouth every 8 (eight) hours as needed for Pain. [facility] traZODone 50 mg tablet 2021-07 0-06 00:00: 00 Yes 50mg Take 1 tablet by mouth at bedtime. [facility] methocarbam oL 500 mg tablet 2021-07 0-06 00:00: 00 Yes [id number] 500mg Take 1 tablet by mouth 4 (four) times daily as needed (muscle spasms). [facility] ibuprofen 600 mg tablet 2021-07 0- 00:00: 00 Yes [id number] 600mg Take 1 tablet by mouth every 6 (six) hours as needed for Pain (scale 4-6). [facility] acetaminoph en 500 mg tablet 2021-07 0- 00:00: 00 Yes [id number] 1000mg Take 2 tablets by mouth every 8 (eight) hours as needed for Pain. [facility] traZODone 50 mg tablet 2021-07 0- 00:00: 00 Yes 50mg Take 1 tablet by mouth at bedtime. [facility] methocarbam oL 500 mg tablet 2021-07 0- 00:00: 00 Yes [id number] 500mg Take 1 tablet by mouth 4 (four) times daily as needed (muscle spasms). [facility] ibuprofen 600 mg tablet 2021-07 0 00:00: 00 Yes [id number] 600mg Take 1 tablet by mouth every 6 (six) hours as needed for Pain (scale 4-6). [facility] acetaminoph en 500 mg tablet 2021-07 0-06 00:00: 00 Yes [id number] 1000mg Take 2 tablets by mouth every 8 (eight) hours as needed for Pain. [facility] traZODone 50 mg tablet 2021-07 0- 00:00: 00 Yes 50mg Take 1 tablet by mouth at bedtime. [facility] methocarbam oL 500 mg tablet 2021-07 0-06 00:00: 00 Yes [id number] 500mg Take 1 tablet by mouth 4 (four) times daily as needed (muscle spasms). [facility] ibuprofen 600 mg tablet 2021-07 0- 00:00: 00 Yes [id number] 600mg Take 1 tablet by mouth every 6 (six) hours as needed for Pain (scale 4-6). [facility] acetaminoph en 500 mg tablet 2021-07 0- 00:00: 00 Yes [id number] 1000mg Take 2 tablets by mouth every 8 (eight) hours as needed for Pain. [facility] traZODone 50 mg tablet 2021-07 0- 00:00: 00 Yes 50mg Take 1 tablet by mouth at bedtime. [facility] methocarbam oL 500 mg tablet 2021-07 0- 00:00: 00 Yes [id number] 500mg Take 1 tablet by mouth 4 (four) times daily as needed (muscle spasms). [facility] ibuprofen 600 mg tablet 2021-07 0 00:00: 00 Yes [id number] 600mg Take 1 tablet by mouth every 6 (six) hours as needed for Pain (scale 4-6). [facility] acetaminoph en 500 mg tablet 2021-07 0 00:00: 00 Yes [id number] 1000mg Take 2 tablets by mouth every 8 (eight) hours as needed for Pain. [facility] traZODone 50 mg tablet 2021-07 0 00:00: 00 Yes 50mg Take 1 tablet by mouth at bedtime. [facility] methocarbam oL 500 mg tablet 2021-07 0 00:00: 00 Yes [id number] 500mg Take 1 tablet by mouth 4 (four) times daily as needed (muscle spasms). [facility] ibuprofen 600 mg tablet 2021-07 0- 00:00: 00 Yes [id number] 600mg Take 1 tablet by mouth every 6 (six) hours as needed for Pain (scale 4-6). [facility] acetaminoph en 500 mg tablet 2021-07 0- 00:00: 00 Yes [id number] 1000mg Take 2 tablets by mouth every 8 (eight) hours as needed for Pain. [facility] traZODone 50 mg tablet 2021-07 0- 00:00: 00 Yes 50mg Take 1 tablet by mouth at bedtime. [facility] methocarbam oL 500 mg tablet 2021-07 0- 00:00: 00 Yes [id number] 500mg Take 1 tablet by mouth 4 (four) times daily as needed (muscle spasms). [facility] ibuprofen 600 mg tablet 2021-07 0 00:00: 00 Yes [id number] 600mg Take 1 tablet by mouth every 6 (six) hours as needed for Pain (scale 4-6). [facility] acetaminoph en 500 mg tablet 2021-07 0 00:00: 00 Yes [id number] 1000mg Take 2 tablets by mouth every 8 (eight) hours as needed for Pain. [facility] traZODone 50 mg tablet 2021-07 0 00:00: 00 Yes 50mg Take 1 tablet by mouth at bedtime. [facility] methocarbam oL 500 mg tablet 2021-07 0 00:00: 00 Yes [id number] 500mg Take 1 tablet by mouth 4 (four) times daily as needed (muscle spasms). [facility] ibuprofen 600 mg tablet 2021-07 0 00:00: 00 Yes [id number] 600mg Take 1 tablet by mouth every 6 (six) hours as needed for Pain (scale 4-6). [facility] acetaminoph en 500 mg tablet 2021-07 0 00:00: 00 Yes [id number] 1000mg Take 2 tablets by mouth every 8 (eight) hours as needed for Pain. [facility] traZODone 50 mg tablet 2021-07 0- 00:00: 00 Yes 50mg Take 1 tablet by mouth at bedtime. [facility] methocarbam oL 500 mg tablet 2021-07 0- 00:00: 00 Yes [id number] 500mg Take 1 tablet by mouth 4 (four) times daily as needed (muscle spasms). [facility] ibuprofen 600 mg tablet 2021-07 0- 00:00: 00 Yes [id number] 600mg Take 1 tablet by mouth every 6 (six) hours as needed for Pain (scale 4-6). [facility] acetaminoph en 500 mg tablet 2021-07 0 00:00: 00 Yes [id number] 1000mg Take 2 tablets by mouth every 8 (eight) hours as needed for Pain. [facility] traZODone 50 mg tablet 2021-07 0 00:00: 00 Yes 50mg Take 1 tablet by mouth at bedtime. [facility] methocarbam oL 500 mg tablet 2021-07 0- 00:00: 00 Yes [id number] 500mg Take 1 tablet by mouth 4 (four) times daily as needed (muscle spasms). [facility] ibuprofen 600 mg tablet 2021-07 0 00:00: 00 Yes [id number] 600mg Take 1 tablet by mouth every 6 (six) hours as needed for Pain (scale 4-6). [facility] acetaminoph en 500 mg tablet 2021-07 0 00:00: 00 Yes [id number] 1000mg Take 2 tablets by mouth every 8 (eight) hours as needed for Pain. [facility] traZODone 50 mg tablet 2021-07 0 00:00: 00 Yes 50mg Take 1 tablet by mouth at bedtime. [facility] methocarbam oL 500 mg tablet 2021-07 0 00:00: 00 Yes [id number] 500mg Take 1 tablet by mouth 4 (four) times daily as needed (muscle spasms). [facility] ibuprofen 600 mg tablet 2021-07 0 00:00: 00 Yes [id number] 600mg Take 1 tablet by mouth every 6 (six) hours as needed for Pain (scale 4-6). [facility] acetaminoph en 500 mg tablet 2021-07 0 00:00: 00 Yes [id number] 1000mg Take 2 tablets by mouth every 8 (eight) hours as needed for Pain. [facility] traZODone 50 mg tablet 2021-07 0- 00:00: 00 Yes 50mg Take 1 tablet by mouth at bedtime. [facility] methocarbam oL 500 mg tablet 2021-07 0- 00:00: 00 Yes [id number] 500mg Take 1 tablet by mouth 4 (four) times daily as needed (muscle spasms). [facility] ibuprofen 600 mg tablet 2021-07 0-06 00:00: 00 Yes [id number] 600mg Take 1 tablet by mouth every 6 (six) hours as needed for Pain (scale 4-6). [facility] acetaminoph en 500 mg tablet 2021-07 0- 00:00: 00 Yes [id number] 1000mg Take 2 tablets by mouth every 8 (eight) hours as needed for Pain. [facility] traZODone 50 mg tablet 2021-07 0- 00:00: 00 Yes 50mg Take 1 tablet by mouth at bedtime. [facility] methocarbam oL 500 mg tablet 2021-07 0 00:00: 00 Yes [id number] 500mg Take 1 tablet by mouth 4 (four) times daily as needed (muscle spasms). [facility] ibuprofen 600 mg tablet 2021-07 0 00:00: 00 Yes [id number] 600mg Take 1 tablet by mouth every 6 (six) hours as needed for Pain (scale 4-6). [facility] acetaminoph en 500 mg tablet 2021-07 0 00:00: 00 Yes [id number] 1000mg Take 2 tablets by mouth every 8 (eight) hours as needed for Pain. [facility] traZODone 50 mg tablet 2021-07 0 00:00: 00 Yes 50mg Take 1 tablet by mouth at bedtime. [facility] methocarbam oL 500 mg tablet 2021-07 0- 00:00: 00 Yes [id number] 500mg Take 1 tablet by mouth 4 (four) times daily as needed (muscle spasms). [facility] ibuprofen 600 mg tablet 2021-07 0- 00:00: 00 Yes [id number] 600mg Take 1 tablet by mouth every 6 (six) hours as needed for Pain (scale 4-6). [facility] acetaminoph en 500 mg tablet 2021-07 0-06 00:00: 00 Yes [id number] 1000mg Take 2 tablets by mouth every 8 (eight) hours as needed for Pain. [facility] traZODone 50 mg tablet 2021-07 0-06 00:00: 00 Yes 50mg Take 1 tablet by mouth at bedtime. [facility] methocarbam oL 500 mg tablet 2021-07 0-06 00:00: 00 Yes [id number] 500mg Take 1 tablet by mouth 4 (four) times daily as needed (muscle spasms). [facility] ibuprofen 600 mg tablet 2021-07 0-06 00:00: 00 Yes [id number] 600mg Take 1 tablet by mouth every 6 (six) hours as needed for Pain (scale 4-6). [facility] acetaminoph en 500 mg tablet 2021-07 0-06 00:00: 00 05-31 00:00 :00 No [id number] 1000mg Take 2 tablets by mouth every 8 (eight) hours as needed for Pain. [facility] traZODone 50 mg tablet 2021-07 0-06 00:00: 00 05-31 00:00 :00 No 50mg Take 1 tablet by mouth at bedtime. [facility] methocarbam oL 500 mg tablet 2021-07 0-06 00:00: 00 05-31 00:00 :00 No [id number] 500mg Take 1 tablet by mouth 4 (four) times daily as needed (muscle spasms). [facility] ibuprofen 600 mg tablet 2021-07 0-06 00:00: 00 05-31 00:00 :00 No [id number] 600mg Take 1 tablet by mouth every 6 (six) hours as needed for Pain (scale 4-6). [facility] acetaminoph en 500 mg tablet 2021-07 0-06 00:00: 00 05-31 00:00 :00 No [id number] 1000mg Take 2 tablets by mouth every 8 (eight) hours as needed for Pain. [facility] traZODone 50 mg tablet 2021-07 0-06 00:00: 00 05-31 00:00 :00 No 50mg Take 1 tablet by mouth at bedtime. [facility] methocarbam oL 500 mg tablet 2021-07 0-06 00:00: 05-31 00:00 :00 No [id number] 500mg Take 1 tablet by mouth 4 (four) times daily as needed (muscle spasms). [facility] ibuprofen 600 mg tablet 2021-07 0-06 00:00: 00 05-31 00:00 :00 No [id number] 600mg Take 1 tablet by mouth every 6 (six) hours as needed for Pain (scale 4-6). [facility] acetaminoph en 500 mg tablet 2021-07 0-06 00:00: 00 05-31 00:00 :00 No [id number] 1000mg Take 2 tablets by mouth every 8 (eight) hours as needed for Pain. [facility] traZODone 50 mg tablet 2021-07 0-06 00:00: 00 05-31 00:00 :00 No 50mg Take 1 tablet by mouth at bedtime. [facility] methocarbam oL 500 mg tablet 2021-07 0-06 00:00: 00 05-31 00:00 :00 No [id number] 500mg Take 1 tablet by mouth 4 (four) times daily as needed (muscle spasms). [facility] ibuprofen 600 mg tablet 2021-07 0-06 00:00: 00 05-31 00:00 :00 No [id number] 600mg Take 1 tablet by mouth every 6 (six) hours as needed for Pain (scale 4-6). [facility] acetaminoph en 500 mg tablet 2021-07 0-06 00:00: 00 05-31 00:00 :00 No [id number] 1000mg Take 2 tablets by mouth every 8 (eight) hours as needed for Pain. [facility] traZODone 50 mg tablet 2021-07 0-06 00:00: 00 05-31 00:00 :00 No 50mg Take 1 tablet by mouth at bedtime. [facility] methocarbam oL 500 mg tablet 2021-07 0-06 00:00: 00 05-31 00:00 :00 No [id number] 500mg Take 1 tablet by mouth 4 (four) times daily as needed (muscle spasms). [facility] ibuprofen 600 mg tablet 2021-07 0-06 00:00: 05-31 00:00 :00 No [id number] 600mg Take 1 tablet by mouth every 6 (six) hours as needed for Pain (scale 4-6). [facility] acetaminoph en 500 mg tablet 2021-07 0-06 00:00: 05-31 00:00 :00 No [id number] 1000mg Take 2 tablets by mouth every 8 (eight) hours as needed for Pain. [facility] traZODone 50 mg tablet 2021-07 0-06 00:00: 00 05-31 00:00 :00 No 50mg Take 1 tablet by mouth at bedtime. [facility] methocarbam oL 500 mg tablet 2021-07 0-06 00:00: 00 05-31 00:00 :00 No [id number] 500mg Take 1 tablet by mouth 4 (four) times daily as needed (muscle spasms). [facility] ibuprofen 600 mg tablet 2021-07 0-06 00:00: 00 05-31 00:00 :00 No [id number] 600mg Take 1 tablet by mouth every 6 (six) hours as needed for Pain (scale 4-6). [facility] acetaminoph en 500 mg tablet 2021-07 0-06 00:00: 00 05-31 00:00 :00 No [id number] 1000mg Take 2 tablets by mouth every 8 (eight) hours as needed for Pain. [facility] traZODone 50 mg tablet 2021-07 0-06 00:00: 00 05-31 00:00 :00 No 50mg Take 1 tablet by mouth at bedtime. [facility] methocarbam oL 500 mg tablet 2021-07 0-06 00:00: 00 05-31 00:00 :00 No [id number] 500mg Take 1 tablet by mouth 4 (four) times daily as needed (muscle spasms). [facility] ibuprofen 600 mg tablet 2021-07 00:00: 00 05-31 00:00 :00 No [id number] 600mg Take 1 tablet by mouth every 6 (six) hours as needed for Pain (scale 4-6). [facility] atomoxetine (STRATTERA) capsule 40 mg 2021-07 16:45: 00 Yes 40mg 40 mg, Oral, DAILY, First dose on Mon04/06/22 at 1145, Until Discontinu ed, Routine
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
Reason for non-formul freddie use: PATIENT CURRENTLY TAKING NONFORMULA RY PRODUCT [facility] lamoTRIgine (LAMICTAL) tablet 25 mg 2021-07 16:45: 00 Yes 25mg 25 mg, Oral, DAILY, First dose on Mon04/06/22 at 1145, Until Discontinu ed, Routine [facility] traMADoL (ULTRAM) tablet 50 mg 2021-07 16:45: 00 Yes 50mg 50 mg, Oral, Q8H, First dose on Mon04/06/22 at 1145, Until Discontinu ed, Routine [facility] oxyCODONE immediate release tablet 5 mg 2021-07 16:31: 53 Yes 5mg 5 mg, Oral, Q4HPRN, Starting on Mon04/06/22 at 1131, Until Discontinu ed, Routine, Pain (scale 7-10)
F aculty member approving Restricted medication : KEAGAN LUO [facility] celecoxib (CELEBREX) capsule 100 mg 2021-07 15:15: 00 Yes 100mg 100 mg, Oral, BID MEALS, First dose on Mon04/06/22 at 1015, Until Discontinu ed, Routine [facility] acetaminoph en (TYLENOL) tablet 1,000 mg 2021-07 15:15: 00 Yes 1000mg 1,000 mg, Oral, Q8H, First dose on Mon04/06/22 at 1015, Until Discontinu ed, Routine [facility] tamsulosin (FLOMAX) capsule 0.4 mg 2021-07 14:00: 00 Yes .4mg 0.4 mg, Oral, DAILY, First dose on Mon04/06/22 at 0900, Until Discontinu ed, Routine [facility] methocarbam oL (ROBAXIN) tablet 1,000 mg 2021-07 0 13:00: 00 Yes 1000mg 1,000 mg, Oral, QID, First dose on Mon04/06/22 at 0800, Until Discontinu ed, Routine [facility] enoxaparin (LOVENOX) injection 30 mg 2021-07 0 01:00: 00 Yes 30mg 30 mg, Subcutaneo us, Q12H, First dose on Mon04/05/22 at 2000, Until Discontinu ed, Routine [facility] methocarbam oL (ROBAXIN) injection 1,000 mg 2021-07 0 19:00: 00 04-06 11:05 :13 No 1000mg 1,000 mg, Intravenou s, Q8H, First dose on Mon04/05/22 at 1400, Until Discontinu ed, Routine [facility] acetaminoph en ADULT (OFIRMEV) injection 1,000 mg 2021-07 004 19:00: 00 04-06 14:37 :00 No 1000mg 1,000 mg, IV Infusion, at 400 mL/hr Administer over 15 Minutes, Q8H, 3 doses, First dose on Mon04/05/22 at 1400, Last dose on Mon04/06/22 at 0600, Routine
Indicatio n: Perioperat janna Patient [facility] polyethylen e glycol 3350 powder 17 g 2021-07 004 14:15: 00 Yes 17g 17 g, Oral, DAILY, First dose on Mon04/05/22 at 0915, Until Discontinu ed, Routine [facility] ibuprofen (IBU) tablet 600 mg 2021-07 0-04 13:00: 00 04-05 14:14 :08 No 600mg 600 mg, Oral, TID MEALS, First dose on Mon04/05/22 at 0800, Until Discontinu ed, Routine [facility] acetaminoph en (TYLENOL) tablet 650 mg 2021-07 0-04 05:00: 00 04-05 15:12 :14 No 650mg 650 mg, Oral, Q6H, First dose on Mon04/05/22 at 0000, Until Discontinu ed, Routine [facility] methocarbam oL (ROBAXIN) tablet 500 mg 2021-07 0-04 01:00: 00 04-05 15:09 :36 No 500mg 500 mg, Oral, QID, First dose on Mon04/04/22 at 2000, Until Discontinu ed, Routine [facility] morpHINE (2 mg/mL) injection 2 mg 2021-07 0-03 23:22: 51 04-05 14:14 :08 No 2mg 2 mg, Slow IV Push, Q4HPRN, Starting on Mon04/04/22 at 1822, Until Mon04/05/22 at 0914, Routine, Pain (scale 7-10) [facility] HYDROcodone -acetaminop hen (NORCO 5) 5-325 mg tablet 1 tablet 2021-07 003 23:22: 51 04-05 14:14 :08 No 1{tbl} 1 tablet, Oral, Q6HPRN, Starting on Mon04/04/22 at 1822, Until Mon04/05/22 at 0914, Routine, Pain (scale 4-6) [facility] FENTanyl PF (SUBLIMAZE (PF)) injection 50 mcg 2021-07 003 22:00: 00 04-04 21:05 :00 No 50ug 50 mcg, Slow IV Push, ONCE, 1 dose, On Mon04/04/22 at 1700, Routine [facility] FENTanyl PF (SUBLIMAZE (PF)) injection 50 mcg 2021-07 0- 20:30: 00 04-04 19:32 :00 No 50ug 50 mcg, Slow IV Push, ONCE, 1 dose, On Mon04/04/22 at 1530, Routine [facility] ondansetron (ZOFRAN (PF)) injection 4 mg 2021-07 0-03 19:45: 04-04 19:32 :00 No 4mg 4 mg, Slow IV Push, ONCE, 1 dose, On Mon04/04/22 at 1445, ARLEN [facility] iopamidol (ISOVUE 370-500 mL) injection 80 mL 2021-07 19:00: 00 04-04 18:49 :00 No [id number] 80mL 80 mL, Intravenou s, ONCE, 1 dose, On Mon04/04/22 at 1400, Routine [facility] NaCl 0.9% (NS) bolus infusion 1,000 mL 04-01 05:15: 00 04-01 06:27 :00 No 1000mL at 999 mL/hr, 1,000 mL, IV Infusion, ONCE, 1 dose, On Mon04/01/22 at 0015, STAT [facility] ondansetron (ZOFRAN (PF)) injection 4 mg 04-01 04:15: 04-01 04:36 :00 No 4mg 4 mg, Slow IV Push, ONCE, 1 dose, On Ronel 03/31/22 at 2315, [facility]RLEN [facility] ARIPiprazol e (ABILIFY MAINTENA) 300 mg sers 03-17 00:00: 00 Yes [id number] 300mg 300 mg by Intramuscu lar route once every month. [facility] ARIPiprazol e (ABILIFY MAINTENA) 300 mg sers 03-17 00:00: 00 Yes 300mg 300 mg by Intramuscu lar route once every month. [facility] ARIPiprazol e (ABILIFY MAINTENA) 300 mg sers 03-17 00:00: 00 Yes [id number] 300mg 300 mg by Intramuscu lar route once every month. [facility] ARIPiprazol e (ABILIFY MAINTENA) 300 mg sers 03-17 00:00: 00 Yes 300mg 300 mg by Intramuscu lar route once every month. [facility] ARIPiprazol e (ABILIFY MAINTENA) 300 mg sers 15 00:00: 00 Yes [id number] 300mg 300 mg by Intramuscu lar route once every month. [facility] (ABILIFY MAINTENA) 300 mg sers 15 00:00: 00 Yes 300mg 300 mg by Intramuscu lar route once every month. [facility] ARIPiprazol e (ABILIFY MAINTENA) 300 mg sers 15 00:00: 00 Yes [id number] 300mg 300 mg by Intramuscu lar route once every month. [facility] ARIPiprazol e (ABILIFY MAINTENA) 300 mg sers 03-17 00:00: 00 Yes 300mg 300 mg by Intramuscu lar route once every month. [facility] ARIPiprazol e (ABILIFY MAINTENA) 300 mg sers 03-17 00:00: 00 Yes [id number] 300mg 300 mg by Intramuscu lar route once every month. [facility] ARIPiprazol e (ABILIFY MAINTENA) 300 mg sers 15 00:00: 00 Yes 300mg 300 mg by Intramuscu lar route once every month. [facility] ARIPiprazol e (ABILIFY MAINTENA) 300 mg sers 15 00:00: 00 Yes [id number] 300mg 300 mg by Intramuscu lar route once every month. [facility] (ABILIFY MAINTENA) 300 mg sers 15 00:00: 00 Yes 300mg 300 mg by Intramuscu lar route once every month. [facility] ARIPiprazol e (ABILIFY MAINTENA) 300 mg sers -15 00:00: 00 Yes [id number] 300mg 300 mg by Intramuscu lar route once every month. [facility] ARIPiprazol e (ABILIFY MAINTENA) 300 mg sers -15 00:00: 00 Yes 300mg 300 mg by Intramuscu lar route once every month. [facility] ARIPiprazol e (ABILIFY MAINTENA) 300 mg sers -15 00:00: 00 Yes [id number] 300mg 300 mg by Intramuscu lar route once every month. [facility] ARIPiprazol e (ABILIFY MAINTENA) 300 mg sers - 00:00: 00 Yes [id number] 300mg 300 mg by Intramuscu lar route once every month. [facility] ARIPiprazol e (ABILIFY MAINTENA) 300 mg sers 03-17 00:00: 00 Yes [id number] 300mg 300 mg by Intramuscu lar route once every month. [facility] ARIPiprazol e (ABILIFY MAINTENA) 300 mg sers 03-17 00:00: 00 Yes [id number] 300mg 300 mg by Intramuscu lar route once every month. [facility] ARIPiprazol e (ABILIFY MAINTENA) 300 mg sers 15 00:00: 00 Yes [id number] 300mg 300 mg by Intramuscu lar route once every month. [facility] ARIPiprazol e (ABILIFY MAINTENA) 300 mg sers 03-17 00:00: 00 Yes [id number] 300mg 300 mg by Intramuscu lar route once every month. [facility] ARIPiprazol e (ABILIFY MAINTENA) 300 mg sers -15 00:00: 00 04-07 00:00 :00 No 300mg 300 mg by Intramuscu lar route once every month. [facility] ARIPiprazol e (ABILIFY MAINTENA) 300 mg sers -15 00:00: 00 04-07 00:00 :00 No 300mg 300 mg by Intramuscu lar route once every month. [facility] ARIPiprazol e (ABILIFY MAINTENA) 300 mg sers -15 00:00: 00 04-07 00:00 :00 No 300mg 300 mg by Intramuscu lar route once every month. [facility] ARIPiprazol e (ABILIFY MAINTENA) 300 mg sers 03-17 00:00: 00 04-07 00:00 :00 No 300mg 300 mg by Intramuscu lar route once every month. [facility] ARIPiprazol e (ABILIFY MAINTENA) 300 mg sers 03-17 00:00: 00 04-07 00:00 :00 No 300mg 300 mg by Intramuscu lar route once every month. [facility] ARIPiprazol e (ABILIFY MAINTENA) 300 mg sers 03-17 00:00: 00 04-07 00:00 :00 No 300mg 300 mg by Intramuscu lar route once every month. [facility] ARIPiprazol e (ABILIFY MAINTENA) 300 mg sers 03-17 00:00: 00 04-07 00:00 :00 No 300mg 300 mg by Intramuscu lar route once every month. [facility] ARIPiprazol e (ABILIFY MAINTENA) 300 mg sers 03-17 00:00: 00 04-07 00:00 :00 No 300mg 300 mg by Intramuscu lar route once every month. [facility] ARIPiprazol e (ABILIFY MAINTENA) 300 mg sers 03-17 00:00: 00 04-07 00:00 :00 No 300mg 300 mg by Intramuscu lar route once every month. [facility] ARIPiprazol e (ABILIFY MAINTENA) 300 mg sers 03-17 00:00: 00 04-07 00:00 :00 No 300mg 300 mg by Intramuscu lar route once every month. [facility] ARIPiprazol e (ABILIFY MAINTENA) 300 mg sers 2022-0 9-15 00:00: 00 04-07 00:00 :00 No 300mg 300 mg by Intramuscu lar route once every month. [facility] ARIPiprazol e (ABILIFY MAINTENA) 300 mg sers -15 00:00: 00 04-07 00:00 :00 No 300mg 300 mg by Intramuscu lar route once every month. [facility] ARIPiprazol e (ABILIFY MAINTENA) 300 mg sers 15 00:00: 00 04-07 00:00 :00 No 300mg 300 mg by Intramuscu lar route once every month. [facility] ARIPiprazol e (ABILIFY MAINTENA) 300 mg sers 03-17 00:00: 00 04-07 00:00 :00 No 300mg 300 mg by Intramuscu lar route once every month. [facility] ARIPiprazol e (ABILIFY MAINTENA) 300 mg sers 15 00:00: 00 04-07 00:00 :00 No 300mg 300 mg by Intramuscu lar route once every month. [facility] ARIPiprazol e (ABILIFY MAINTENA) 300 mg sers - 00:00: 00 04-07 00:00 :00 No 300mg 300 mg by Intramuscu lar route once every month. [facility] ARIPiprazol e (ABILIFY MAINTENA) 300 mg sers -15 00:00: 00 04-07 00:00 :00 No 300mg 300 mg by Intramuscu lar route once every month. [facility] ARIPiprazol e (ABILIFY MAINTENA) 300 mg sers 9-15 00:00: 00 04-07 00:00 :00 No 300mg 300 mg by Intramuscu lar route once every month. [facility] ARIPiprazol e 10 mg tablet 2022-0 9-08 00:00: 00 04-10 04:59 :00 No [id number] 10mg Take 1 tablet by mouth in the morning for [address] [facility] ARIPiprazol e 10 mg tablet 2-0 9-08 00:00: 00 04-10 04:59 :00 No [id number] 10mg Take 1 tablet by mouth in the morning for [address] [facility] ARIPiprazol e 10 mg tablet 2021-0 9-08 00:00: 00 04-10 04:59 :00 No [id number] 10mg Take 1 tablet by mouth in the morning for [address] [facility] ARIPiprazol e 10 mg tablet 2021-0 9-08 00:00: 00 04-10 04:59 :00 No [id number] 10mg Take 1 tablet by mouth in the morning for [address] [facility] ARIPiprazol e 10 mg tablet 2021-0 9-08 00:00: 00 04-10 04:59 :00 No [id number] 10mg Take 1 tablet by mouth in the morning for [address] [facility] ARIPiprazol e 10 mg tablet 2021-0 9-08 00:00: 00 04-10 04:59 :00 No [id number] 10mg Take 1 tablet by mouth in the morning for [address] [facility] ARIPiprazol e 10 mg tablet 2-0 9-08 00:00: 00 04-10 04:59 :00 No [id number] 10mg Take 1 tablet by mouth in the morning for [address] [facility] ARIPiprazol e 10 mg tablet 2-0 9-08 00:00: 00 04-10 04:59 :00 No [id number] 10mg Take 1 tablet by mouth in the morning for [address] [facility] ARIPiprazol e 10 mg tablet 2-0 9-08 00:00: 00 04-10 04:59 :00 No [id number] 10mg Take 1 tablet by mouth in the morning for [address] [facility] ARIPiprazol e 10 mg tablet 2-0 9-08 00:00: 00 04-10 04:59 :00 No [id number] 10mg Take 1 tablet by mouth in the morning for [address] [facility] ARIPiprazol e 10 mg tablet 2-0 9-08 00:00: 00 04-10 04:59 :00 No [id number] 10mg Take 1 tablet by mouth in the morning for [address] [facility] ARIPiprazol e 10 mg tablet 2021-0 9-08 00:00: 00 04-10 04:59 :00 No [id number] 10mg Take 1 tablet by mouth in the morning for [address] [facility] ARIPiprazol e 10 mg tablet 2021-0 9-08 00:00: 00 04-10 04:59 :00 No [id number] 10mg Take 1 tablet by mouth in the morning for [address] [facility] ARIPiprazol e 10 mg tablet 2021-0 9-08 00:00: 00 04-10 04:59 :00 No [id number] 10mg Take 1 tablet by mouth in the morning for [address] [facility] ARIPiprazol e 10 mg tablet 2021-0 908 00:00: 00 04-10 04:59 :00 No [id number] 10mg Take 1 tablet by mouth in the morning for [address] [facility] ARIPiprazol e 10 mg tablet 2021-0 9-08 00:00: 00 04-10 04:59 :00 No [id number] 10mg Take 1 tablet by mouth in the morning for [address] [facility] ARIPiprazol e 10 mg tablet 2-0 9-08 00:00: 00 04-10 04:59 :00 No [id number] 10mg Take 1 tablet by mouth in the morning for [address] [facility] ARIPiprazol e 10 mg tablet 2021-0 9-08 00:00: 00 04-10 04:59 :00 No [id number] 10mg Take 1 tablet by mouth in the morning for [address] [facility] ARIPiprazol e 10 mg tablet 2-0 9-08 00:00: 00 04-10 04:59 :00 No [id number] 10mg Take 1 tablet by mouth in the morning for [address] [facility] ARIPiprazol e 10 mg tablet 2-0 9-08 00:00: 00 04-10 04:59 :00 No [id number] 10mg Take 1 tablet by mouth in the morning for [address] [facility] ARIPiprazol e 10 mg tablet 2-0 9-08 00:00: 00 04-10 04:59 :00 No [id number] 10mg Take 1 tablet by mouth in the morning for [address] [facility] ARIPiprazol e 10 mg tablet 2-0 9-08 00:00: 00 04-10 04:59 :00 No [id number] 10mg Take 1 tablet by mouth in the morning for [address] [facility] ARIPiprazol e 10 mg tablet 2021-0 9-08 00:00: 00 04-10 04:59 :00 No [id number] 10mg Take 1 tablet by mouth in the morning for [address] [facility] ARIPiprazol e 10 mg tablet 2-0 9-08 00:00: 00 04-10 04:59 :00 No [id number] 10mg Take 1 tablet by mouth in the morning for [address] [facility] ARIPiprazol e 10 mg tablet 2-0 9-08 00:00: 00 04-10 04:59 :00 No [id number] 10mg Take 1 tablet by mouth in the morning for [address] [facility] ARIPiprazol e 10 mg tablet 2-0 9-08 00:00: 00 04-10 04:59 :00 No [id number] 10mg Take 1 tablet by mouth in the morning for [address] [facility] ARIPiprazol e 10 mg tablet 2-0 9-08 00:00: 00 04-10 04:59 :00 No [id number] 10mg Take 1 tablet by mouth in the morning for [address] [facility] ARIPiprazol e 10 mg tablet 03-10 00:00: 00 04-10 04:59 :00 No [id number] 10mg Take 1 tablet by mouth in the morning for [address] [facility] ARIPiprazol e (ABILIFY MAINTENA) 300 mg sers 03-09 00:00: 00 06-08 05:59 :00 No [id number] 300mg 300 mg by Intramuscu lar route once every month for [address] [facility] ARIPiprazol e (ABILIFY MAINTENA) 300 mg sers 03-09 00:00: 00 03-17 00:00 :00 No [id number] 300mg 300 mg by Intramuscu lar route once every month for [address] [facility] ARIPiprazol e (ABILIFY MAINTENA) 300 mg sers 03-09 00:00: 03-17 00:00 :00 No [id number] 300mg 300 mg by Intramuscu lar route once every month for [address] [facility] ARIPiprazol e (ABILIFY MAINTENA) 300 mg sers 03-09 00:00: 00 03-17 00:00 :00 No [id number] 300mg 300 mg by Intramuscu lar route once every month for [address] [facility] ARIPiprazol e (ABILIFY MAINTENA) 300 mg sers 03-09 00:00: 00 03-17 00:00 :00 No [id number] 300mg 300 mg by Intramuscu lar route once every month for [address] [facility] ARIPiprazol e (ABILIFY MAINTENA) 300 mg sers 03-09 00:00: 00 03-17 00:00 :00 No [id number] 300mg 300 mg by Intramuscu lar route once every month for [address] [facility] QUEtiapine 50 mg tablet 18 00:00: 00 03-10 00:00 :00 No [id number] 50mg Take 1 tablet by mouth in the morning and 1 tablet in the evening. Do all this for [address] [facility] QUEtiapine 50 mg tablet 2021-0 18 00:00: 00 03-10 00:00 :00 No [id number] 50mg Take 1 tablet by mouth in the morning and 1 tablet in the evening. Do all this for [address] [facility] QUEtiapine 50 mg tablet 2021-0 18 00:00: 00 03-10 00:00 :00 No [id number] 50mg Take 1 tablet by mouth in the morning and 1 tablet in the evening. Do all this for [address] [facility] QUEtiapine 50 mg tablet 0 18 00:00: 00 03-10 00:00 :00 No [id number] 50mg Take 1 tablet by mouth in the morning and 1 tablet in the evening. Do all this for [address] [facility] QUEtiapine 50 mg tablet 01-17 00:00: 00 03-10 00:00 :00 No [id number] 50mg Take 1 tablet by mouth in the morning and 1 tablet in the evening. Do all this for [address] [facility] lithium carbonate CR 300 mg SR tablet 0 12-07 00:00: 00 03-08 04:59 :00 No [id number] 300mg Take 1 tablet by mouth at bedtime for [address] [facility] lithium carbonate CR 450 mg SR tablet 2021-0 12-07 00:00: 00 03-08 04:59 :00 No [id number] 450mg Take 1 tablet by mouth every morning for [address] [facility] lithium carbonate CR 300 mg SR tablet 0 12-07 00:00: 00 03-08 04:59 :00 No [id number] 300mg Take 1 tablet by mouth at bedtime for [address] [facility] lithium carbonate CR 450 mg SR tablet 0 12-07 00:00: 00 03-08 04:59 :00 No [id number] 450mg Take 1 tablet by mouth every morning for [address] [facility] lithium carbonate CR 300 mg SR tablet 12-07 00:00: 00 03-08 04:59 :00 No [id number] 300mg Take 1 tablet by mouth at bedtime for [address] [facility] lithium carbonate CR 450 mg SR tablet 12-07 00:00: 00 03-08 04:59 :00 No [id number] 450mg Take 1 tablet by mouth every morning for [address] [facility] lithium carbonate CR 300 mg SR tablet 12-07 00:00: 00 03-08 04:59 :00 No [id number] 300mg Take 1 tablet by mouth at bedtime for [address] [facility] lithium carbonate CR 450 mg SR tablet 12-07 00:00: 00 03-08 04:59 :00 No [id number] 450mg Take 1 tablet by mouth every morning for [address] [facility] lithium carbonate CR 300 mg SR tablet 12-07 00:00: 00 03-08 04:59 :00 No [id number] 300mg Take 1 tablet by mouth at bedtime for [address] [facility] lithium carbonate CR 450 mg SR tablet 12-07 00:00: 00 03-08 04:59 :00 No [id number] 450mg Take 1 tablet by mouth every morning for [address] [facility] miSOPROStoL 200 mcg tablet 10-29 00:00: 00 Yes [id number] 200ug Take 1 tablet by mouth SEE-INSTRU CTIONS. Take one tab the night before and one tab the morning of procedure [facility] miSOPROStoL 200 mcg tablet 10-29 00:00: 00 Yes [id number] 200ug Take 1 tablet by mouth SEE-INSTRU CTIONS. Take one tab the night before and one tab the morning of procedure [facility] miSOPROStoL 200 mcg tablet 10-29 00:00: 00 Yes [id number] 200ug Take 1 tablet by mouth SEE-INSTRU CTIONS. Take one tab the night before and one tab the morning of procedure [facility] miSOPROStoL 200 mcg tablet 10-29 00:00: 00 Yes [id number] 200ug Take 1 tablet by mouth SEE-INSTRU CTIONS. Take one tab the night before and one tab the morning of procedure [facility] miSOPROStoL 200 mcg tablet 10-29 00:00: 00 Yes [id number] 200ug Take 1 tablet by mouth SEE-INSTRU CTIONS. Take one tab the night before and one tab the morning of procedure [facility] miSOPROStoL 200 mcg tablet 10-29 00:00: 00 Yes [id number] 200ug Take 1 tablet by mouth SEE-INSTRU CTIONS. Take one tab the night before and one tab the morning of procedure [facility] miSOPROStoL 200 mcg tablet 10-29 00:00: 00 Yes [id number] 200ug Take 1 tablet by mouth SEE-INSTRU CTIONS. Take one tab the night before and one tab the morning of procedure [facility] miSOPROStoL 200 mcg tablet 10-29 00:00: 00 Yes [id number] 200ug Take 1 tablet by mouth SEE-INSTRU CTIONS. Take one tab the night before and one tab the morning of procedure [facility] miSOPROStoL 200 mcg tablet 10-29 00:00: 00 Yes [id number] 200ug Take 1 tablet by mouth SEE-INSTRU CTIONS. Take one tab the night before and one tab the morning of procedure [facility] miSOPROStoL 200 mcg tablet 2021-0 10-29 00:00: 00 04-07 00:00 :00 No [id number] 200ug Take 1 tablet by mouth SEE-INSTRU CTIONS. Take one tab the night before and one tab the morning of procedure [facility] miSOPROStoL 200 mcg tablet 2021-0 10-29 00:00: 00 04-07 00:00 :00 No [id number] 200ug Take 1 tablet by mouth SEE-INSTRU CTIONS. Take one tab the night before and one tab the morning of procedure [facility] miSOPROStoL 200 mcg tablet 2021-0 10-29 00:00: 00 04-07 00:00 :00 No [id number] 200ug Take 1 tablet by mouth SEE-INSTRU CTIONS. Take one tab the night before and one tab the morning of procedure [facility] miSOPROStoL 200 mcg tablet 10-29 00:00: 00 04-07 00:00 :00 No [id number] 200ug Take 1 tablet by mouth SEE-INSTRU CTIONS. Take one tab the night before and one tab the morning of procedure [facility] miSOPROStoL 200 mcg tablet 10-29 00:00: 00 04-07 00:00 :00 No [id number] 200ug Take 1 tablet by mouth SEE-INSTRU CTIONS. Take one tab the night before and one tab the morning of procedure [facility] miSOPROStoL 200 mcg tablet 2021-0 10-29 00:00: 00 04-07 00:00 :00 No [id number] 200ug Take 1 tablet by mouth SEE-INSTRU CTIONS. Take one tab the night before and one tab the morning of procedure [facility] miSOPROStoL 200 mcg tablet 0 10-29 00:00: 00 04-07 00:00 :00 No [id number] 200ug Take 1 tablet by mouth SEE-INSTRU CTIONS. Take one tab the night before and one tab the morning of procedure [facility] miSOPROStoL 200 mcg tablet 2021-0 10-29 00:00: 00 04-07 00:00 :00 No [id number] 200ug Take 1 tablet by mouth SEE-INSTRU CTIONS. Take one tab the night before and one tab the morning of procedure [facility] miSOPROStoL 200 mcg tablet 2021-0 10-29 00:00: 00 04-07 00:00 :00 No [id number] 200ug Take 1 tablet by mouth SEE-INSTRU CTIONS. Take one tab the night before and one tab the morning of procedure [facility] miSOPROStoL 200 mcg tablet 2021-0 4-29 00:00: 00 04-07 00:00 :00 No [id number] 200ug Take 1 tablet by mouth SEE-INSTRU CTIONS. Take one tab the night before and one tab the morning of procedure [facility] miSOPROStoL 200 mcg tablet 2021-0 429 00:00: 00 04-07 00:00 :00 No [id number] 200ug Take 1 tablet by mouth SEE-INSTRU CTIONS. Take one tab the night before and one tab the morning of procedure [facility] miSOPROStoL 200 mcg tablet 2021-0 429 00:00: 00 04-07 00:00 :00 No [id number] 200ug Take 1 tablet by mouth SEE-INSTRU CTIONS. Take one tab the night before and one tab the morning of procedure [facility] miSOPROStoL 200 mcg tablet 2021-0 10-29 00:00: 00 04-07 00:00 :00 No [id number] 200ug Take 1 tablet by mouth SEE-INSTRU CTIONS. Take one tab the night before and one tab the morning of procedure [facility] miSOPROStoL 200 mcg tablet 2021-0 29 00:00: 00 04-07 00:00 :00 No [id number] 200ug Take 1 tablet by mouth SEE-INSTRU CTIONS. Take one tab the night before and one tab the morning of procedure [facility] miSOPROStoL 200 mcg tablet 2021-0 29 00:00: 00 04-07 00:00 :00 No [id number] 200ug Take 1 tablet by mouth SEE-INSTRU CTIONS. Take one tab the night before and one tab the morning of procedure [facility] miSOPROStoL 200 mcg tablet 2021-0 429 00:00: 00 04-07 00:00 :00 No [id number] 200ug Take 1 tablet by mouth SEE-INSTRU CTIONS. Take one tab the night before and one tab the morning of procedure [facility] miSOPROStoL 200 mcg tablet 2021-0 429 00:00: 00 04-07 00:00 :00 No [id number] 200ug Take 1 tablet by mouth SEE-INSTRU CTIONS. Take one tab the night before and one tab the morning of procedure [facility] miSOPROStoL 200 mcg tablet 10-29 00:00: 00 04-07 00:00 :00 No [id number] 200ug Take 1 tablet by mouth SEE-INSTRU CTIONS. Take one tab the night before and one tab the morning of procedure [facility] Immunizations Ordered Immunization Name Filled Immunization Name Date Status Comments Source SARS-COV-2 COVID-19 MIKE-SUCROSE VACCINE 12 YRS+, BIVALENT 0.3ML, IM, (PFIZER [employer]ITA [employer]) 2022-03-17 00:00:00 Completed [facility] SARS-COV-2 COVID-19 MIKE-SUCROSE VACCINE 12 YRS+, BIVALENT 0.3ML, IM, (PFIZER ARITA TOP BOOSTER) 2022-03-17 00:00:00 Completed [facility] SARS-COV-2 COVID-19 MIKE-SUCROSE VACCINE 12 YRS+, BIVALENT 0.3ML, IM, (PFIZER ARITA TOP BOOSTER) 2022-03-17 00:00:00 Completed [facility] SARS-COV-2 COVID-19 MIKE-SUCROSE VACCINE 12 YRS+, BIVALENT 0.3ML, IM, (PFIZER ARITA TOP BOOSTER) 2022-03-17 00:00:00 Completed [facility] SARS-COV-2 COVID-19 MIKE-SUCROSE VACCINE 12 YRS+, BIVALENT 0.3ML, IM, (PFIZER ARITA TOP BOOSTER) 2022-03-17 00:00:00 Completed [facility] SARS-COV-2 COVID-19 MIKE-SUCROSE VACCINE 12 YRS+, BIVALENT 0.3ML, IM, (PFIZER ARITA TOP BOOSTER) 2022-03-17 00:00:00 Completed [facility] SARS-COV-2 COVID-19 MIKE-SUCROSE VACCINE 12 YRS+, BIVALENT 0.3ML, IM, (PFIZER ARITA TOP BOOSTER) 2022-03-17 00:00:00 Completed [facility] SARS-COV-2 COVID-19 MIKE-SUCROSE VACCINE 12 YRS+, BIVALENT 0.3ML, IM, (PFIZER ARITA TOP BOOSTER) 2022-03-17 00:00:00 Completed [facility] SARS-COV-2 COVID-19 MIKE-SUCROSE VACCINE 12 YRS+, BIVALENT 0.3ML, IM, (PFIZER ARITA TOP BOOSTER) 2022-03-17 00:00:00 Completed [facility] SARS-COV-2 COVID-19 MIKE-SUCROSE VACCINE 12 YRS+, BIVALENT 0.3ML, IM, (PFIZER ARITA TOP BOOSTER) 2022-03-17 00:00:00 Completed [facility] SARS-COV-2 COVID-19 MIKE-SUCROSE VACCINE 12 YRS+, BIVALENT 0.3ML, IM, (PFIZER ARITA TOP BOOSTER) 2022-03-17 00:00:00 Completed [facility] SARS-COV-2 COVID-19 MIKE-SUCROSE VACCINE 12 YRS+, BIVALENT 0.3ML, IM, (PFIZER ARITA TOP BOOSTER) 2022-03-17 00:00:00 Completed [facility] SARS-COV-2 COVID-19 MIKE-SUCROSE VACCINE 12 YRS+, BIVALENT 0.3ML, IM, (PFIZER ARITA TOP BOOSTER) 2022-03-17 00:00:00 Completed [facility] SARS-COV-2 COVID-19 MIKE-SUCROSE VACCINE 12 YRS+, BIVALENT 0.3ML, IM, (PFIZER ARITA TOP BOOSTER) 2022-03-17 00:00:00 Completed [facility] SARS-COV-2 COVID-19 MIKE-SUCROSE VACCINE 12 YRS+, BIVALENT 0.3ML, IM, (PFIZER ARITA TOP BOOSTER) 2022-03-17 00:00:00 Completed [facility] SARS-COV-2 COVID-19 MIKE-SUCROSE VACCINE 12 YRS+, BIVALENT 0.3ML, IM, (PFIZER ARITA TOP BOOSTER) 2022-03-17 00:00:00 Completed [facility] SARS-COV-2 COVID-19 MIKE-SUCROSE VACCINE 12 YRS+, BIVALENT 0.3ML, IM, (PFIZER ARITA TOP BOOSTER) 2022-03-17 00:00:00 Completed [facility] SARS-COV-2 COVID-19 MIKE-SUCROSE VACCINE 12 YRS+, BIVALENT 0.3ML, IM, (PFIZER ARITA TOP BOOSTER) 2022-03-17 00:00:00 Completed [facility] SARS-COV-2 COVID-19 MIKE-SUCROSE VACCINE 12 YRS+, BIVALENT 0.3ML, IM, (PFIZER ARITA TOP BOOSTER) 2022-03-17 00:00:00 Completed [facility] SARS-COV-2 COVID-19 MIKE-SUCROSE VACCINE 12 YRS+, BIVALENT 0.3ML, IM, (PFIZER ARITA TOP BOOSTER) 2022-03-17 00:00:00 Completed [facility] SARS-COV-2 COVID-19 MIKE-SUCROSE VACCINE 12 YRS+, BIVALENT 0.3ML, IM, (PFIZER ARITA TOP BOOSTER) 2022-03-17 00:00:00 Completed [facility] SARS-COV-2 COVID-19 MIKE-SUCROSE VACCINE 12 YRS+, BIVALENT 0.3ML, IM, (PFIZER ARITA TOP BOOSTER) 2022-03-17 00:00:00 Completed [facility] SARS-COV-2 COVID-19 MIKE-SUCROSE VACCINE 12 YRS+, BIVALENT 0.3ML, IM, (PFIZER ARITA TOP BOOSTER) 2022-03-17 00:00:00 Completed [facility] SARS-COV-2 COVID-19 MIKE-SUCROSE VACCINE 12 YRS+, BIVALENT 0.3ML, IM, (PFIZER ARITA TOP BOOSTER) 2022-03-17 00:00:00 Completed [facility] SARS-COV-2 COVID-19 MIKE-SUCROSE VACCINE 12 YRS+, BIVALENT 0.3ML, IM, (PFIZER ARITA TOP BOOSTER) 2022-03-17 00:00:00 Completed [facility] SARS-COV-2 COVID-19 MIKE-SUCROSE VACCINE 12 YRS+, BIVALENT 0.3ML, IM, (PFIZER ARITA TOP BOOSTER) 2022-03-17 00:00:00 Completed [facility] SARS-COV-2 COVID-19 MIKE-SUCROSE VACCINE 12 YRS+, BIVALENT 0.3ML, IM, (PFIZER ARITA TOP BOOSTER) 2022-03-17 00:00:00 Completed [facility] SARS-COV-2 COVID-19 MIKE-SUCROSE VACCINE 12 YRS+, BIVALENT 0.3ML, IM, (PFIZER ARITA TOP BOOSTER) 2022-03-17 00:00:00 Completed [facility] SARS-COV-2 COVID-19 MIKE-SUCROSE VACCINE 12 YRS+, BIVALENT 0.3ML, IM, (PFIZER ARITA TOP BOOSTER) 2022-03-17 00:00:00 Completed [facility] SARS-COV-2 COVID-19 MIKE-SUCROSE VACCINE 12 YRS+, BIVALENT 0.3ML, IM, (PFIZER ARITA TOP BOOSTER) 2022-03-17 00:00:00 Completed [facility] SARS-COV-2 COVID-19 MIKE-SUCROSE VACCINE 12 YRS+, BIVALENT 0.3ML, IM, (PFIZER ARITA TOP BOOSTER) 2022-03-17 00:00:00 Completed [facility] SARS-COV-2 COVID-19 MIKE-SUCROSE VACCINE 12 YRS+, BIVALENT 0.3ML, IM, (PFIZER ARITA TOP BOOSTER) 2022-03-17 00:00:00 Completed [facility] SARS-COV-2 COVID-19 MIKE-SUCROSE VACCINE 12 YRS+, BIVALENT 0.3ML, IM, (PFIZER ARITA TOP BOOSTER) 2022-03-17 00:00:00 Completed [facility] SARS-COV-2 COVID-19 MIKE-SUCROSE VACCINE 12 YRS+, BIVALENT 0.3ML, IM, (PFIZER ARITA TOP BOOSTER) 2022-03-17 00:00:00 Completed [facility] SARS-COV-2 COVID-19 MIKE-SUCROSE VACCINE 12 YRS+, BIVALENT 0.3ML, IM, (PFIZER ARITA TOP BOOSTER) 2022-03-17 00:00:00 Completed [facility] SARS-COV-2 COVID-19 MIKE-SUCROSE VACCINE 12 YRS+, BIVALENT 0.3ML, IM, (PFIZER ARITA TOP BOOSTER) 2022-03-17 00:00:00 Completed [facility] SARS-COV-2 COVID-19 MIKE-SUCROSE VACCINE 12 YRS+, BIVALENT 0.3ML, IM, (PFIZER ARITA TOP BOOSTER) 2022-03-17 00:00:00 Completed [facility] SARS-COV-2 COVID-19 MIKE-SUCROSE VACCINE 12 YRS+, BIVALENT 0.3ML, IM, (PFIZER ARITA TOP BOOSTER) 2022-03-17 00:00:00 Completed [facility] SARS-COV-2 COVID-19 MIKE-SUCROSE VACCINE 12 YRS+, BIVALENT 0.3ML, IM, (PFIZER ARITA TOP BOOSTER) 2022-03-17 00:00:00 Completed [facility] SARS-COV-2 COVID-19 MIKE-SUCROSE VACCINE 12 YRS+, BIVALENT 0.3ML, IM, (PFIZER ARITA TOP BOOSTER) 2022-03-17 00:00:00 Completed [facility] SARS-COV-2 COVID-19 MIKE-SUCROSE VACCINE 12 YRS+, BIVALENT 0.3ML, IM, (PFIZER ARITA TOP BOOSTER) 2022-03-17 00:00:00 Completed [facility] SARS-COV-2 COVID-19 MIKE-SUCROSE VACCINE 12 YRS+, BIVALENT 0.3ML, IM, (PFIZER ARITA TOP BOOSTER) 2022-03-17 00:00:00 Completed [facility] SARS-COV-2 COVID-19 MIKE-SUCROSE VACCINE 12 YRS+, BIVALENT 0.3ML, IM, (PFIZER ARITA TOP BOOSTER) 2022-03-17 00:00:00 Completed [facility] SARS-COV-2 COVID-19 MIKE-SUCROSE VACCINE 12 YRS+, BIVALENT 0.3ML, IM, (PFIZER ARITA TOP BOOSTER) 2022-03-17 00:00:00 Completed [facility] SARS-COV-2 COVID-19 MIKE-SUCROSE VACCINE 12 YRS+, BIVALENT 0.3ML, IM, (PFIZER ARITA TOP BOOSTER) 2022-03-17 00:00:00 Completed [facility] SARS-COV-2 COVID-19 MIKE-SUCROSE VACCINE 12 YRS+, BIVALENT 0.3ML, IM, (PFIZER ARITA TOP BOOSTER) 2022-03-17 00:00:00 Completed [facility] SARS-COV-2 COVID-19 MIKE-SUCROSE VACCINE 12 YRS+, BIVALENT 0.3ML, IM, (PFIZER ARITA TOP BOOSTER) 2022-03-17 00:00:00 Completed [facility] SARS-COV-2 COVID-19 MIKE-SUCROSE VACCINE 12 YRS+, BIVALENT 0.3ML, IM, (PFIZER ARITA TOP BOOSTER) 2022-03-17 00:00:00 Completed [facility] SARS-COV-2 COVID-19 MIKE-SUCROSE VACCINE 12 YRS+, BIVALENT 0.3ML, IM, (PFIZER ARITA TOP BOOSTER) 2022-03-17 00:00:00 Completed [facility] SARS-COV-2 COVID-19 MIKE-SUCROSE VACCINE 12 YRS+, BIVALENT 0.3ML, IM, (PFIZER ARITA TOP BOOSTER) 2022-03-17 00:00:00 Completed [facility] SARS-COV-2 COVID-19 MIKE-SUCROSE VACCINE 12 YRS+, BIVALENT 0.3ML, IM, (PFIZER ARITA TOP BOOSTER) 2022-03-17 00:00:00 Completed [facility] SARS-COV-2 COVID-19 MIKE-SUCROSE VACCINE 12 YRS+, BIVALENT 0.3ML, IM, (PFIZER ARITA TOP BOOSTER) 2022-03-17 00:00:00 Completed [facility] SARS-COV-2 COVID-19 MIKE-SUCROSE VACCINE 12 YRS+, BIVALENT 0.3ML, IM, (PFIZER ARITA TOP BOOSTER) 2022-03-17 00:00:00 Completed [facility] SARS-COV-2 COVID-19 MIKE-SUCROSE VACCINE 12 YRS+, BIVALENT 0.3ML, IM, (PFIZER ARITA TOP BOOSTER) 2022-03-17 00:00:00 Completed [facility] SARS-COV-2 COVID-19 MIKE-SUCROSE VACCINE 12 YRS+, BIVALENT 0.3ML, IM, (PFIZER ARITA TOP BOOSTER) 2022-03-17 00:00:00 Completed [facility] SARS-COV-2 COVID-19 MIKE-SUCROSE VACCINE 12 YRS+, BIVALENT 0.3ML, IM, (PFIZER ARITA TOP BOOSTER) 2022-03-17 00:00:00 Completed [facility] SARS-COV-2 COVID-19 MIKE-SUCROSE VACCINE 12 YRS+, BIVALENT 0.3ML, IM, (PFIZER ARITA TOP BOOSTER) 2022-03-17 00:00:00 Completed [facility] SARS-COV-2 COVID-19 MIKE-SUCROSE VACCINE 12 YRS+, BIVALENT 0.3ML, IM, (PFIZER ARITA TOP BOOSTER) 2022-03-17 00:00:00 Completed [facility] SARS-COV-2 COVID-19 MIKE-SUCROSE VACCINE 12 YRS+, BIVALENT 0.3ML, IM, (PFIZER ARITA TOP BOOSTER) 2022-03-17 00:00:00 Completed [facility] SARS-COV-2 COVID-19 MIKE-SUCROSE VACCINE 12 YRS+, BIVALENT 0.3ML, IM, (PFIZER ARITA TOP BOOSTER) 2022-03-17 00:00:00 Completed [facility] SARS-COV-2 COVID-19 MIKE-SUCROSE VACCINE 12 YRS+, BIVALENT 0.3ML, IM, (PFIZER ARITA TOP BOOSTER) 2022-03-17 00:00:00 Completed [facility] SARS-COV-2 COVID-19 MIKE-SUCROSE VACCINE 12 YRS+, BIVALENT 0.3ML, IM, (PFIZER ARITA TOP BOOSTER) 2022-03-17 00:00:00 Completed [facility] SARS-COV-2 COVID-19 MIKE-SUCROSE VACCINE 12 YRS+, BIVALENT 0.3ML, IM, (PFIZER ARITA TOP BOOSTER) 2022-03-17 00:00:00 Completed [facility] SARS-COV-2 COVID-19 MIKE-SUCROSE VACCINE 12 YRS+, BIVALENT 0.3ML, IM, (PFIZER ARITA TOP BOOSTER) 2022-03-17 00:00:00 Completed [facility] SARS-COV-2 COVID-19 MIKE-SUCROSE VACCINE 12 YRS+, BIVALENT 0.3ML, IM, (PFIZER ARITA TOP BOOSTER) 2022-03-17 00:00:00 Completed [facility] SARS-COV-2 COVID-19 MIKE-SUCROSE VACCINE 12 YRS+, BIVALENT 0.3ML, IM, (PFIZER RAITA TOP BOOSTER) 2022-03-17 00:00:00 Completed [facility] SARS-COV-2 COVID-19 MIKE-SUCROSE VACCINE 12 YRS+, BIVALENT 0.3ML, IM, (PFIZER ARITA TOP) 2022-03-17 00:00:00 Completed [facility] SARS-COV-2 COVID-19 MIKE-SUCROSE VACCINE 12 YRS+, BIVALENT 0.3ML, IM, (PFIZER ARITA TOP) 2022-03-17 00:00:00 Completed [facility] SARS-COV-2 COVID-19 MIKE-SUCROSE VACCINE 12 YRS+, BIVALENT 0.3ML, IM, (PFIZER ARITA TOP) 2022-03-17 00:00:00 Completed [facility] SARS-COV-2 COVID-19 MIKE-SUCROSE VACCINE 12 YRS+, BIVALENT 0.3ML, IM, (PFIZER ARITA TOP) 2022-03-17 00:00:00 Completed [facility] SARS-COV-2 COVID-19 MIKE-SUCROSE VACCINE 12 YRS+, BIVALENT 0.3ML, IM, (PFIZER ARITA TOP) 2022-03-17 00:00:00 Completed [facility] SARS-COV-2 COVID-19 MIKE-SUCROSE VACCINE 12 YRS+, BIVALENT 0.3ML, IM, (PFIZER RAITA TOP) 2022-03-17 00:00:00 Completed [facility] SARS-COV-2 COVID-19 MIKE-SUCROSE VACCINE 12 YRS+, BIVALENT 0.3ML, IM, (PFIZER ARITA TOP) 2022-03-17 00:00:00 Completed [facility] SARS-COV-2 COVID-19 MIKE-SUCROSE VACCINE 12 YRS+, BIVALENT 0.3ML, IM, (PFIZER ARITA TOP) 2022-03-17 00:00:00 Completed [facility] SARS-COV-2 COVID-19 MIKE-SUCROSE VACCINE 12 YRS+, BIVALENT 0.3ML, IM, (PFIZER ARITA TOP) 2022-03-17 00:00:00 Completed [facility] SARS-COV-2 COVID-19 MIKE-SUCROSE VACCINE 12 YRS+, BIVALENT 0.3ML, IM, (PFIZER ARITA TOP) 2022-03-17 00:00:00 Completed [facility] SARS-COV-2 COVID-19 MKIE-SUCROSE VACCINE 12 YRS+, BIVALENT 0.3ML, IM, (PFIZER ARITA TOP) 2022-03-17 00:00:00 Completed [facility] SARS-COV-2 COVID-19 MIKE-SUCROSE VACCINE 12 YRS+, BIVALENT 0.3ML, IM, (PFIZER ARITA TOP) 2022-03-17 00:00:00 Completed [facility] SARS-COV-2 COVID-19 MIKE-SUCROSE VACCINE 12 YRS+, BIVALENT 0.3ML, IM, (PFIZER ARITA TOP) 2022-03-17 00:00:00 Completed [facility] SARS-COV-2 COVID-19 MIKE-SUCROSE VACCINE 12 YRS+, BIVALENT 0.3ML, IM, (PFIZER ARITA TOP) 2022-03-17 00:00:00 Completed [facility] SARS-COV-2 COVID-19 MIKE-SUCROSE VACCINE 12 YRS+, BIVALENT 0.3ML, IM, (PFIZER ARITA TOP) 2022-03-17 00:00:00 Completed [facility] SARS-COV-2 COVID-19 MIKE-SUCROSE VACCINE 12 YRS+, BIVALENT 0.3ML, IM, (PFIZER ARITA TOP) 2022-03-17 00:00:00 Completed [facility] SARS-COV-2 COVID-19 MIKE-SUCROSE VACCINE 12 YRS+, BIVALENT 0.3ML, IM, (PFIZER ARITA TOP) 2022-03-17 00:00:00 Completed [facility] SARS-COV-2 COVID-19 MIKE-SUCROSE VACCINE 12 YRS+, BIVALENT 0.3ML, IM, (PFIZER ARITA TOP) 2022-03-17 00:00:00 Completed [facility] SARS-COV-2 COVID-19 MIKE-SUCROSE VACCINE 12 YRS+, BIVALENT 0.3ML, IM, (PFIZER ARITA TOP) 2022-03-17 00:00:00 Completed [facility] SARS-COV-2 COVID-19 MIKE-SUCROSE VACCINE 12 YRS+, BIVALENT 0.3ML, IM, (PFIZER ARITA TOP) 2022-03-17 00:00:00 Completed [facility] SARS-COV-2 COVID-19 MIKE-SUCROSE VACCINE 12 YRS+, BIVALENT 0.3ML, IM, (PFIZER ARITA TOP) 2022-03-17 00:00:00 Completed [facility] SARS-COV-2 COVID-19 MIKE-SUCROSE VACCINE 12 YRS+, BIVALENT 0.3ML, IM, (PFIZER ARITA TOP) 2022-03-17 00:00:00 Completed [facility] SARS-COV-2 COVID-19 MIKE-SUCROSE VACCINE 12 YRS+, BIVALENT 0.3ML, IM, (PFIZER ARITA TOP) 2022-03-17 00:00:00 Completed [facility] SARS-COV-2 COVID-19 MIKE-SUCROSE VACCINE 12 YRS+, BIVALENT 0.3ML, IM, (PFIZER ARITA TOP) 2022-03-17 00:00:00 Completed [facility] SARS-COV-2 COVID-19 MIKE-SUCROSE VACCINE 12 YRS+, BIVALENT 0.3ML, IM, (PFIZER ARITA TOP) 2022-03-17 00:00:00 Completed [facility] SARS-COV-2 COVID-19 MIKE-SUCROSE VACCINE 12 YRS+, BIVALENT 0.3ML, IM, (PFIZER ARITA TOP) 2022-03-17 00:00:00 Completed [facility] SARS-COV-2 COVID-19 MIKE-SUCROSE VACCINE 12 YRS+, BIVALENT 0.3ML, IM, (PFIZER ARITA TOP) 2022-03-17 00:00:00 Completed [facility] SARS-COV-2 COVID-19 MIKE-SUCROSE VACCINE 12 YRS+, BIVALENT 0.3ML, IM, (PFIZER ARITA TOP) 2022-03-17 00:00:00 Completed [facility] SARS-COV-2 COVID-19 MIKE-SUCROSE VACCINE 12 YRS+, BIVALENT 0.3ML, IM, (PFIZER ARITA TOP) 2022-03-17 00:00:00 Completed [facility] SARS-COV-2 COVID-19 MIKE-SUCROSE VACCINE 12 YRS+, BIVALENT 0.3ML, IM, (PFIZER ARITA TOP) 2022-03-17 00:00:00 Completed [facility] SARS-COV-2 COVID-19 MIKE-SUCROSE VACCINE 12 YRS+, BIVALENT 0.3ML, IM, (PFIZER ARITA TOP) 2022-03-17 00:00:00 Completed [facility] SARS-COV-2 COVID-19 MIKE-SUCROSE VACCINE 12 YRS+, BIVALENT 0.3ML, IM, (PFIZER ARITA TOP) 2022-03-17 00:00:00 Completed [facility] SARS-COV-2 COVID-19 MIKE-SUCROSE VACCINE 12 YRS+, BIVALENT 0.3ML, IM, (PFIZER ARITA TOP) 2022-03-17 00:00:00 Completed [facility] SARS-COV-2 COVID-19 MIKE-SUCROSE VACCINE 12 YRS+, BIVALENT 0.3ML, IM, (PFIZER ARITA TOP) 2022-03-17 00:00:00 Completed [facility] SARS-COV-2 COVID-19 MIKE-SUCROSE VACCINE 12 YRS+, BIVALENT 0.3ML, IM, (PFIZER ARITA TOP) 2022-03-17 00:00:00 Completed [facility] SARS-COV-2 COVID-19 MIKE-SUCROSE VACCINE 12 YRS+, BIVALENT 0.3ML, IM, (PFIZER ARITA TOP) 2022-03-17 00:00:00 Completed [facility] SARS-COV-2 COVID-19 MIKE-SUCROSE VACCINE 12 YRS+, BIVALENT 0.3ML, IM, (PFIZER ARITA TOP) 2022-03-17 00:00:00 Completed [facility] SARS-COV-2 COVID-19 MIKE-SUCROSE VACCINE 12 YRS+, BIVALENT 0.3ML, IM, (PFIZER ARITA TOP) 2022-03-17 00:00:00 Completed [facility] SARS-COV-2 COVID-19 PFIZER VACCINE 2021-06-24 00:00:00 Completed [facility] SARS-COV-2 COVID-19 PFIZER VACCINE 2021-06-24 00:00:00 Completed [facility] SARS-COV-2 COVID-19 PFIZER VACCINE 2021-06-24 00:00:00 Completed [facility] SARS-COV-2 COVID-19 PFIZER VACCINE 2021-06-24 00:00:00 Completed [facility] SARS-COV-2 COVID-19 PFIZER VACCINE 2021-06-24 00:00:00 Completed [facility] SARS-COV-2 COVID-19 PFIZER VACCINE 2021-06-24 00:00:00 Completed [facility] SARS-COV-2 COVID-19 PFIZER VACCINE 2021-06-24 00:00:00 Completed [facility] SARS-COV-2 COVID-19 PFIZER VACCINE 2021-06-24 00:00:00 Completed [facility] SARS-COV-2 COVID-19 PFIZER VACCINE 2021-06-24 00:00:00 Completed [facility] SARS-COV-2 COVID-19 PFIZER VACCINE 2021-06-24 00:00:00 Completed [facility] SARS-COV-2 COVID-19 PFIZER VACCINE 2021-06-24 00:00:00 Completed [facility] SARS-COV-2 COVID-19 PFIZER VACCINE 2021-06-24 00:00:00 Completed [facility] SARS-COV-2 COVID-19 PFIZER VACCINE 2021-06-24 00:00:00 Completed [facility] SARS-COV-2 COVID-19 PFIZER VACCINE 2021-06-24 00:00:00 Completed [facility] SARS-COV-2 COVID-19 PFIZER VACCINE 2021-06-24 00:00:00 Completed [facility] SARS-COV-2 COVID-19 PFIZER VACCINE 2021-06-24 00:00:00 Completed [facility] SARS-COV-2 COVID-19 PFIZER VACCINE 2021-06-24 00:00:00 Completed [facility] SARS-COV-2 COVID-19 PFIZER VACCINE 2021-06-24 00:00:00 Completed [facility] SARS-COV-2 COVID-19 PFIZER VACCINE 2021-06-24 00:00:00 Completed [facility] SARS-COV-2 COVID-19 PFIZER VACCINE 2021-06-24 00:00:00 Completed [facility] SARS-COV-2 COVID-19 PFIZER VACCINE 2021-06-24 00:00:00 Completed [facility] SARS-COV-2 COVID-19 PFIZER VACCINE 2021-06-24 00:00:00 Completed [facility] SARS-COV-2 COVID-19 PFIZER VACCINE 2021-06-24 00:00:00 Completed [facility] SARS-COV-2 COVID-19 PFIZER VACCINE 2021-06-24 00:00:00 Completed [facility] SARS-COV-2 COVID-19 PFIZER VACCINE 2021-06-24 00:00:00 Completed [facility] SARS-COV-2 COVID-19 PFIZER VACCINE 2021-06-24 00:00:00 Completed [facility] SARS-COV-2 COVID-19 PFIZER VACCINE 2021-06-24 00:00:00 Completed [facility] SARS-COV-2 COVID-19 PFIZER VACCINE 2021-06-24 00:00:00 Completed [facility] SARS-COV-2 COVID-19 PFIZER VACCINE 2021-06-24 00:00:00 Completed [facility] SARS-COV-2 COVID-19 PFIZER VACCINE 2021-06-24 00:00:00 Completed [facility] SARS-COV-2 COVID-19 PFIZER VACCINE 2021-06-24 00:00:00 Completed [facility] SARS-COV-2 COVID-19 PFIZER VACCINE 2021-06-24 00:00:00 Completed [facility] SARS-COV-2 COVID-19 PFIZER VACCINE 2021-06-24 00:00:00 Completed [facility] SARS-COV-2 COVID-19 PFIZER VACCINE 2021-06-24 00:00:00 Completed [facility] SARS-COV-2 COVID-19 PFIZER VACCINE 2021-06-24 00:00:00 Completed [facility] SARS-COV-2 COVID-19 PFIZER VACCINE 2021-06-24 00:00:00 Completed [facility] SARS-COV-2 COVID-19 PFIZER VACCINE 2021-06-24 00:00:00 Completed [facility] SARS-COV-2 COVID-19 PFIZER VACCINE 2021-06-24 00:00:00 Completed [facility] SARS-COV-2 COVID-19 PFIZER VACCINE 2021-06-24 00:00:00 Completed [facility] SARS-COV-2 COVID-19 PFIZER VACCINE 2021-06-24 00:00:00 Completed [facility] SARS-COV-2 COVID-19 PFIZER VACCINE 2021-06-24 00:00:00 Completed [facility] SARS-COV-2 COVID-19 PFIZER VACCINE 2021-06-24 00:00:00 Completed [facility] SARS-COV-2 COVID-19 PFIZER VACCINE 2021-06-24 00:00:00 Completed [facility] SARS-COV-2 COVID-19 PFIZER VACCINE 2021-06-24 00:00:00 Completed [facility] SARS-COV-2 COVID-19 PFIZER VACCINE 2021-06-24 00:00:00 Completed [facility] SARS-COV-2 COVID-19 PFIZER VACCINE 2021-06-24 00:00:00 Completed [facility] SARS-COV-2 COVID-19 PFIZER VACCINE 2021-06-24 00:00:00 Completed [facility] SARS-COV-2 COVID-19 PFIZER VACCINE 2021-06-24 00:00:00 Completed [facility] SARS-COV-2 COVID-19 PFIZER VACCINE 2021-06-24 00:00:00 Completed [facility] SARS-COV-2 COVID-19 PFIZER VACCINE 2021-06-24 00:00:00 Completed [facility] SARS-COV-2 COVID-19 PFIZER VACCINE 2021-06-24 00:00:00 Completed [facility] SARS-COV-2 COVID-19 PFIZER VACCINE 2021-06-24 00:00:00 Completed [facility] SARS-COV-2 COVID-19 PFIZER VACCINE 2021-06-24 00:00:00 Completed [facility] SARS-COV-2 COVID-19 PFIZER VACCINE 2021-06-24 00:00:00 Completed [facility] SARS-COV-2 COVID-19 PFIZER VACCINE 2021-06-24 00:00:00 Completed [facility] SARS-COV-2 COVID-19 PFIZER VACCINE 2021-06-24 00:00:00 Completed [facility] SARS-COV-2 COVID-19 PFIZER VACCINE 2021-06-24 00:00:00 Completed [facility] SARS-COV-2 COVID-19 PFIZER VACCINE 2021-06-24 00:00:00 Completed [facility] SARS-COV-2 COVID-19 PFIZER VACCINE 2021-06-24 00:00:00 Completed [facility] SARS-COV-2 COVID-19 PFIZER VACCINE 2021-06-24 00:00:00 Completed [facility] SARS-COV-2 COVID-19 PFIZER VACCINE 2021-06-24 00:00:00 Completed [facility] SARS-COV-2 COVID-19 PFIZER VACCINE 2021-06-24 00:00:00 Completed [facility] SARS-COV-2 COVID-19 PFIZER VACCINE 2021-06-24 00:00:00 Completed [facility] SARS-COV-2 COVID-19 PFIZER VACCINE 2021-06-24 00:00:00 Completed [facility] SARS-COV-2 COVID-19 PFIZER VACCINE 2021-06-24 00:00:00 Completed [facility] SARS-COV-2 COVID-19 PFIZER VACCINE 2021-06-24 00:00:00 Completed [facility] SARS-COV-2 COVID-19 PFIZER VACCINE 2021-06-24 00:00:00 Completed [facility] SARS-COV-2 COVID-19 PFIZER VACCINE 2021-06-24 00:00:00 Completed [facility] SARS-COV-2 COVID-19 PFIZER VACCINE 2021-06-24 00:00:00 Completed [facility] SARS-COV-2 COVID-19 PFIZER VACCINE 2021-06-24 00:00:00 Completed [facility] SARS-COV-2 COVID-19 PFIZER VACCINE 2021-06-24 00:00:00 Completed [facility] SARS-COV-2 COVID-19 PFIZER VACCINE 2021-06-24 00:00:00 Completed [facility] SARS-COV-2 COVID-19 PFIZER VACCINE 2021-06-24 00:00:00 Completed [facility] SARS-COV-2 COVID-19 PFIZER VACCINE 2021-06-24 00:00:00 Completed [facility] SARS-COV-2 COVID-19 PFIZER VACCINE 2021-06-24 00:00:00 Completed [facility] SARS-COV-2 COVID-19 PFIZER VACCINE 2021-06-24 00:00:00 Completed [facility] SARS-COV-2 COVID-19 PFIZER VACCINE 2021-06-24 00:00:00 Completed [facility] SARS-COV-2 COVID-19 PFIZER VACCINE 2021-06-24 00:00:00 Completed [facility] SARS-COV-2 COVID-19 PFIZER VACCINE 2021-06-24 00:00:00 Completed [facility] SARS-COV-2 COVID-19 PFIZER VACCINE 2021-06-24 00:00:00 Completed [facility] SARS-COV-2 COVID-19 PFIZER VACCINE 2021-06-24 00:00:00 Completed [facility] SARS-COV-2 COVID-19 PFIZER VACCINE 2021-06-24 00:00:00 Completed [facility] SARS-COV-2 COVID-19 PFIZER VACCINE 2021-06-24 00:00:00 Completed [facility] SARS-COV-2 COVID-19 PFIZER VACCINE 2021-06-24 00:00:00 Completed [facility] SARS-COV-2 COVID-19 PFIZER VACCINE 2021-06-24 00:00:00 Completed [facility] SARS-COV-2 COVID-19 PFIZER VACCINE 2021-06-24 00:00:00 Completed [facility] SARS-COV-2 COVID-19 PFIZER VACCINE 2021-06-24 00:00:00 Completed [facility] SARS-COV-2 COVID-19 PFIZER VACCINE 2021-06-24 00:00:00 Completed [facility] SARS-COV-2 COVID-19 PFIZER VACCINE 2021-06-24 00:00:00 Completed [facility] SARS-COV-2 COVID-19 PFIZER VACCINE 2021-06-24 00:00:00 Completed [facility] SARS-COV-2 COVID-19 PFIZER VACCINE 2021-06-24 00:00:00 Completed [facility] SARS-COV-2 COVID-19 PFIZER VACCINE 2021-06-24 00:00:00 Completed [facility] SARS-COV-2 COVID-19 PFIZER VACCINE 2021-06-24 00:00:00 Completed [facility] SARS-COV-2 COVID-19 PFIZER VACCINE 2021-06-24 00:00:00 Completed [facility] SARS-COV-2 COVID-19 PFIZER VACCINE 2021-06-24 00:00:00 Completed [facility] SARS-COV-2 COVID-19 PFIZER VACCINE 2021-06-24 00:00:00 Completed [facility] SARS-COV-2 COVID-19 PFIZER VACCINE 2021-06-24 00:00:00 Completed [facility] SARS-COV-2 COVID-19 PFIZER VACCINE 2021-06-24 00:00:00 Completed [facility] SARS-COV-2 COVID-19 PFIZER VACCINE 2021-06-24 00:00:00 Completed [facility] SARS-COV-2 COVID-19 PFIZER VACCINE 2021-06-24 00:00:00 Completed [facility] SARS-COV-2 COVID-19 PFIZER VACCINE 2021-06-24 00:00:00 Completed [facility] SARS-COV-2 COVID-19 PFIZER VACCINE 2021-06-24 00:00:00 Completed [facility] SARS-COV-2 COVID-19 PFIZER VACCINE 2021-06-24 00:00:00 Completed [facility] SARS-COV-2 COVID-19 PFIZER VACCINE 2021-06-24 00:00:00 Completed [facility] SARS-COV-2 COVID-19 PFIZER VACCINE 2021-06-24 00:00:00 Completed [facility] SARS-COV-2 COVID-19 PFIZER VACCINE 2020-11-21 00:00:00 Completed [facility] SARS-COV-2 COVID-19 PFIZER VACCINE 2020-11-21 00:00:00 Completed [facility] SARS-COV-2 COVID-19 PFIZER VACCINE 2020-11-21 00:00:00 Completed [facility] SARS-COV-2 COVID-19 PFIZER VACCINE 2020-11-21 00:00:00 Completed [facility] SARS-COV-2 COVID-19 PFIZER VACCINE 2020-11-21 00:00:00 Completed [facility] SARS-COV-2 COVID-19 PFIZER VACCINE 2020-11-21 00:00:00 Completed [facility] SARS-COV-2 COVID-19 PFIZER VACCINE 2020-11-21 00:00:00 Completed [facility] SARS-COV-2 COVID-19 PFIZER VACCINE 2020-11-21 00:00:00 Completed [facility] SARS-COV-2 COVID-19 PFIZER VACCINE 2020-11-21 00:00:00 Completed [facility] SARS-COV-2 COVID-19 PFIZER VACCINE 2020-11-21 00:00:00 Completed [facility] SARS-COV-2 COVID-19 PFIZER VACCINE 2020-11-21 00:00:00 Completed [facility] SARS-COV-2 COVID-19 PFIZER VACCINE 2020-11-21 00:00:00 Completed [facility] SARS-COV-2 COVID-19 PFIZER VACCINE 2020-11-21 00:00:00 Completed [facility] SARS-COV-2 COVID-19 PFIZER VACCINE 2020-11-21 00:00:00 Completed [facility] SARS-COV-2 COVID-19 PFIZER VACCINE 2020-11-21 00:00:00 Completed [facility] SARS-COV-2 COVID-19 PFIZER VACCINE 2020-11-21 00:00:00 Completed [facility] SARS-COV-2 COVID-19 PFIZER VACCINE 2020-11-21 00:00:00 Completed [facility] SARS-COV-2 COVID-19 PFIZER VACCINE 2020-11-21 00:00:00 Completed [facility] SARS-COV-2 COVID-19 PFIZER VACCINE 2020-11-21 00:00:00 Completed [facility] SARS-COV-2 COVID-19 PFIZER VACCINE 2020-11-21 00:00:00 Completed [facility] SARS-COV-2 COVID-19 PFIZER VACCINE 2020-11-21 00:00:00 Completed [facility] SARS-COV-2 COVID-19 PFIZER VACCINE 2020-11-21 00:00:00 Completed [facility] SARS-COV-2 COVID-19 PFIZER VACCINE 2020-11-21 00:00:00 Completed [facility] SARS-COV-2 COVID-19 PFIZER VACCINE 2020-11-21 00:00:00 Completed [facility] SARS-COV-2 COVID-19 PFIZER VACCINE 2020-11-21 00:00:00 Completed [facility] SARS-COV-2 COVID-19 PFIZER VACCINE 2020-11-21 00:00:00 Completed [facility] SARS-COV-2 COVID-19 PFIZER VACCINE 2020-11-21 00:00:00 Completed [facility] SARS-COV-2 COVID-19 PFIZER VACCINE 2020-11-21 00:00:00 Completed [facility] SARS-COV-2 COVID-19 PFIZER VACCINE 2020-11-21 00:00:00 Completed [facility] SARS-COV-2 COVID-19 PFIZER VACCINE 2020-11-21 00:00:00 Completed [facility] SARS-COV-2 COVID-19 PFIZER VACCINE 2020-11-21 00:00:00 Completed [facility] SARS-COV-2 COVID-19 PFIZER VACCINE 2020-11-21 00:00:00 Completed [facility] SARS-COV-2 COVID-19 PFIZER VACCINE 2020-11-21 00:00:00 Completed [facility] SARS-COV-2 COVID-19 PFIZER VACCINE 2020-11-21 00:00:00 Completed [facility] SARS-COV-2 COVID-19 PFIZER VACCINE 2020-11-21 00:00:00 Completed [facility] SARS-COV-2 COVID-19 PFIZER VACCINE 2020-11-21 00:00:00 Completed [facility] SARS-COV-2 COVID-19 PFIZER VACCINE 2020-11-21 00:00:00 Completed [facility] SARS-COV-2 COVID-19 PFIZER VACCINE 2020-11-21 00:00:00 Completed [facility] SARS-COV-2 COVID-19 PFIZER VACCINE 2020-11-21 00:00:00 Completed [facility] SARS-COV-2 COVID-19 PFIZER VACCINE 2020-11-21 00:00:00 Completed [facility] SARS-COV-2 COVID-19 PFIZER VACCINE 2020-11-21 00:00:00 Completed [facility] SARS-COV-2 COVID-19 PFIZER VACCINE 2020-11-21 00:00:00 Completed [facility] SARS-COV-2 COVID-19 PFIZER VACCINE 2020-11-21 00:00:00 Completed [facility] SARS-COV-2 COVID-19 PFIZER VACCINE 2020-11-21 00:00:00 Completed [facility] SARS-COV-2 COVID-19 PFIZER VACCINE 2020-11-21 00:00:00 Completed [facility] SARS-COV-2 COVID-19 PFIZER VACCINE 2020-11-21 00:00:00 Completed [facility] SARS-COV-2 COVID-19 PFIZER VACCINE 2020-11-21 00:00:00 Completed [facility] SARS-COV-2 COVID-19 PFIZER VACCINE 2020-11-21 00:00:00 Completed [facility] SARS-COV-2 COVID-19 PFIZER VACCINE 2020-11-21 00:00:00 Completed [facility] SARS-COV-2 COVID-19 PFIZER VACCINE 2020-11-21 00:00:00 Completed [facility] SARS-COV-2 COVID-19 PFIZER VACCINE 2020-11-21 00:00:00 Completed [facility] SARS-COV-2 COVID-19 PFIZER VACCINE 2020-11-21 00:00:00 Completed [facility] SARS-COV-2 COVID-19 PFIZER VACCINE 2020-11-21 00:00:00 Completed [facility] SARS-COV-2 COVID-19 PFIZER VACCINE 2020-11-21 00:00:00 Completed [facility] SARS-COV-2 COVID-19 PFIZER VACCINE 2020-11-21 00:00:00 Completed [facility] SARS-COV-2 COVID-19 PFIZER VACCINE 2020-11-21 00:00:00 Completed [facility] SARS-COV-2 COVID-19 PFIZER VACCINE 2020-11-21 00:00:00 Completed [facility] SARS-COV-2 COVID-19 PFIZER VACCINE 2020-11-21 00:00:00 Completed [facility] SARS-COV-2 COVID-19 PFIZER VACCINE 2020-11-21 00:00:00 Completed [facility] SARS-COV-2 COVID-19 PFIZER VACCINE 2020-11-21 00:00:00 Completed [facility] SARS-COV-2 COVID-19 PFIZER VACCINE 2020-11-21 00:00:00 Completed [facility] SARS-COV-2 COVID-19 PFIZER VACCINE 2020-11-21 00:00:00 Completed [facility] SARS-COV-2 COVID-19 PFIZER VACCINE 2020-11-21 00:00:00 Completed [facility] SARS-COV-2 COVID-19 PFIZER VACCINE 2020-11-21 00:00:00 Completed [facility] SARS-COV-2 COVID-19 PFIZER VACCINE 2020-11-21 00:00:00 Completed [facility] SARS-COV-2 COVID-19 PFIZER VACCINE 2020-11-21 00:00:00 Completed [facility] SARS-COV-2 COVID-19 PFIZER VACCINE 2020-11-21 00:00:00 Completed [facility] SARS-COV-2 COVID-19 PFIZER VACCINE 2020-11-21 00:00:00 Completed [facility] SARS-COV-2 COVID-19 PFIZER VACCINE 2020-11-21 00:00:00 Completed [facility] SARS-COV-2 COVID-19 PFIZER VACCINE 2020-11-21 00:00:00 Completed [facility] SARS-COV-2 COVID-19 PFIZER VACCINE 2020-11-21 00:00:00 Completed [facility] SARS-COV-2 COVID-19 PFIZER VACCINE 2020-11-21 00:00:00 Completed [facility] SARS-COV-2 COVID-19 PFIZER VACCINE 2020-11-21 00:00:00 Completed [facility] SARS-COV-2 COVID-19 PFIZER VACCINE 2020-11-21 00:00:00 Completed [facility] SARS-COV-2 COVID-19 PFIZER VACCINE 2020-11-21 00:00:00 Completed [facility] SARS-COV-2 COVID-19 PFIZER VACCINE 2020-11-21 00:00:00 Completed [facility] SARS-COV-2 COVID-19 PFIZER VACCINE 2020-11-21 00:00:00 Completed [facility] SARS-COV-2 COVID-19 PFIZER VACCINE 2020-11-21 00:00:00 Completed [facility] SARS-COV-2 COVID-19 PFIZER VACCINE 2020-11-21 00:00:00 Completed [facility] SARS-COV-2 COVID-19 PFIZER VACCINE 2020-11-21 00:00:00 Completed [facility] SARS-COV-2 COVID-19 PFIZER VACCINE 2020-11-21 00:00:00 Completed [facility] SARS-COV-2 COVID-19 PFIZER VACCINE 2020-11-21 00:00:00 Completed [facility] SARS-COV-2 COVID-19 PFIZER VACCINE 2020-11-21 00:00:00 Completed [facility] SARS-COV-2 COVID-19 PFIZER VACCINE 2020-11-21 00:00:00 Completed [facility] SARS-COV-2 COVID-19 PFIZER VACCINE 2020-11-21 00:00:00 Completed [facility] SARS-COV-2 COVID-19 PFIZER VACCINE 2020-11-21 00:00:00 Completed [facility] SARS-COV-2 COVID-19 PFIZER VACCINE 2020-11-21 00:00:00 Completed [facility] SARS-COV-2 COVID-19 PFIZER VACCINE 2020-11-21 00:00:00 Completed [facility] SARS-COV-2 COVID-19 PFIZER VACCINE 2020-11-21 00:00:00 Completed [facility] SARS-COV-2 COVID-19 PFIZER VACCINE 2020-11-21 00:00:00 Completed [facility] SARS-COV-2 COVID-19 PFIZER VACCINE 2020-11-21 00:00:00 Completed [facility] SARS-COV-2 COVID-19 PFIZER VACCINE 2020-11-21 00:00:00 Completed [facility] SARS-COV-2 COVID-19 PFIZER VACCINE 2020-11-21 00:00:00 Completed [facility] SARS-COV-2 COVID-19 PFIZER VACCINE 2020-11-21 00:00:00 Completed [facility] SARS-COV-2 COVID-19 PFIZER VACCINE 2020-11-21 00:00:00 Completed [facility] SARS-COV-2 COVID-19 PFIZER VACCINE 2020-11-21 00:00:00 Completed [facility] SARS-COV-2 COVID-19 PFIZER VACCINE 2020-11-21 00:00:00 Completed [facility] SARS-COV-2 COVID-19 PFIZER VACCINE 2020-11-21 00:00:00 Completed [facility] SARS-COV-2 COVID-19 PFIZER VACCINE 2020-11-21 00:00:00 Completed [facility] SARS-COV-2 COVID-19 PFIZER VACCINE 2020-11-21 00:00:00 Completed [facility] SARS-COV-2 COVID-19 PFIZER VACCINE 2020-11-21 00:00:00 Completed [facility] SARS-COV-2 COVID-19 PFIZER VACCINE 2020-11-21 00:00:00 Completed [facility] SARS-COV-2 COVID-19 PFIZER VACCINE 2020-11-21 00:00:00 Completed [facility] SARS-COV-2 COVID-19 PFIZER VACCINE 2020-11-21 00:00:00 Completed [facility] SARS-COV-2 COVID-19 PFIZER VACCINE 2020-11-21 00:00:00 Completed [facility] SARS-COV-2 COVID-19 PFIZER VACCINE 2020-10-24 00:00:00 Completed [facility] SARS-COV-2 COVID-19 PFIZER VACCINE 2020-10-24 00:00:00 Completed [facility] SARS-COV-2 COVID-19 PFIZER VACCINE 2020-10-24 00:00:00 Completed [facility] SARS-COV-2 COVID-19 PFIZER VACCINE 2020-10-24 00:00:00 Completed [facility] SARS-COV-2 COVID-19 PFIZER VACCINE 2020-10-24 00:00:00 Completed [facility] SARS-COV-2 COVID-19 PFIZER VACCINE 2020-10-24 00:00:00 Completed [facility] SARS-COV-2 COVID-19 PFIZER VACCINE 2020-10-24 00:00:00 Completed [facility] SARS-COV-2 COVID-19 PFIZER VACCINE 2020-10-24 00:00:00 Completed [facility] SARS-COV-2 COVID-19 PFIZER VACCINE 2020-10-24 00:00:00 Completed [facility] SARS-COV-2 COVID-19 PFIZER VACCINE 2020-10-24 00:00:00 Completed [facility] SARS-COV-2 COVID-19 PFIZER VACCINE 2020-10-24 00:00:00 Completed [facility] SARS-COV-2 COVID-19 PFIZER VACCINE 2020-10-24 00:00:00 Completed [facility] SARS-COV-2 COVID-19 PFIZER VACCINE 2020-10-24 00:00:00 Completed [facility] SARS-COV-2 COVID-19 PFIZER VACCINE 2020-10-24 00:00:00 Completed [facility] SARS-COV-2 COVID-19 PFIZER VACCINE 2020-10-24 00:00:00 Completed [facility] SARS-COV-2 COVID-19 PFIZER VACCINE 2020-10-24 00:00:00 Completed [facility] SARS-COV-2 COVID-19 PFIZER VACCINE 2020-10-24 00:00:00 Completed [facility] SARS-COV-2 COVID-19 PFIZER VACCINE 2020-10-24 00:00:00 Completed [facility] SARS-COV-2 COVID-19 PFIZER VACCINE 2020-10-24 00:00:00 Completed [facility] SARS-COV-2 COVID-19 PFIZER VACCINE 2020-10-24 00:00:00 Completed [facility] SARS-COV-2 COVID-19 PFIZER VACCINE 2020-10-24 00:00:00 Completed [facility] SARS-COV-2 COVID-19 PFIZER VACCINE 2020-10-24 00:00:00 Completed [facility] SARS-COV-2 COVID-19 PFIZER VACCINE 2020-10-24 00:00:00 Completed [facility] SARS-COV-2 COVID-19 PFIZER VACCINE 2020-10-24 00:00:00 Completed [facility] SARS-COV-2 COVID-19 PFIZER VACCINE 2020-10-24 00:00:00 Completed [facility] SARS-COV-2 COVID-19 PFIZER VACCINE 2020-10-24 00:00:00 Completed [facility] SARS-COV-2 COVID-19 PFIZER VACCINE 2020-10-24 00:00:00 Completed [facility] SARS-COV-2 COVID-19 PFIZER VACCINE 2020-10-24 00:00:00 Completed [facility] SARS-COV-2 COVID-19 PFIZER VACCINE 2020-10-24 00:00:00 Completed [facility] SARS-COV-2 COVID-19 PFIZER VACCINE 2020-10-24 00:00:00 Completed [facility] SARS-COV-2 COVID-19 PFIZER VACCINE 2020-10-24 00:00:00 Completed [facility] SARS-COV-2 COVID-19 PFIZER VACCINE 2020-10-24 00:00:00 Completed [facility] SARS-COV-2 COVID-19 PFIZER VACCINE 2020-10-24 00:00:00 Completed [facility] SARS-COV-2 COVID-19 PFIZER VACCINE 2020-10-24 00:00:00 Completed [facility] SARS-COV-2 COVID-19 PFIZER VACCINE 2020-10-24 00:00:00 Completed [facility] SARS-COV-2 COVID-19 PFIZER VACCINE 2020-10-24 00:00:00 Completed [facility] SARS-COV-2 COVID-19 PFIZER VACCINE 2020-10-24 00:00:00 Completed [facility] SARS-COV-2 COVID-19 PFIZER VACCINE 2020-10-24 00:00:00 Completed [facility] SARS-COV-2 COVID-19 PFIZER VACCINE 2020-10-24 00:00:00 Completed [facility] SARS-COV-2 COVID-19 PFIZER VACCINE 2020-10-24 00:00:00 Completed [facility] SARS-COV-2 COVID-19 PFIZER VACCINE 2020-10-24 00:00:00 Completed [facility] SARS-COV-2 COVID-19 PFIZER VACCINE 2020-10-24 00:00:00 Completed [facility] SARS-COV-2 COVID-19 PFIZER VACCINE 2020-10-24 00:00:00 Completed [facility] SARS-COV-2 COVID-19 PFIZER VACCINE 2020-10-24 00:00:00 Completed [facility] SARS-COV-2 COVID-19 PFIZER VACCINE 2020-10-24 00:00:00 Completed [facility] SARS-COV-2 COVID-19 PFIZER VACCINE 2020-10-24 00:00:00 Completed [facility] SARS-COV-2 COVID-19 PFIZER VACCINE 2020-10-24 00:00:00 Completed [facility] SARS-COV-2 COVID-19 PFIZER VACCINE 2020-10-24 00:00:00 Completed [facility] SARS-COV-2 COVID-19 PFIZER VACCINE 2020-10-24 00:00:00 Completed [facility] SARS-COV-2 COVID-19 PFIZER VACCINE 2020-10-24 00:00:00 Completed [facility] SARS-COV-2 COVID-19 PFIZER VACCINE 2020-10-24 00:00:00 Completed [facility] SARS-COV-2 COVID-19 PFIZER VACCINE 2020-10-24 00:00:00 Completed [facility] SARS-COV-2 COVID-19 PFIZER VACCINE 2020-10-24 00:00:00 Completed [facility] SARS-COV-2 COVID-19 PFIZER VACCINE 2020-10-24 00:00:00 Completed [facility] SARS-COV-2 COVID-19 PFIZER VACCINE 2020-10-24 00:00:00 Completed [facility] SARS-COV-2 COVID-19 PFIZER VACCINE 2020-10-24 00:00:00 Completed [facility] SARS-COV-2 COVID-19 PFIZER VACCINE 2020-10-24 00:00:00 Completed [facility] SARS-COV-2 COVID-19 PFIZER VACCINE 2020-10-24 00:00:00 Completed [facility] SARS-COV-2 COVID-19 PFIZER VACCINE 2020-10-24 00:00:00 Completed [facility] SARS-COV-2 COVID-19 PFIZER VACCINE 2020-10-24 00:00:00 Completed [facility] SARS-COV-2 COVID-19 PFIZER VACCINE 2020-10-24 00:00:00 Completed [facility] SARS-COV-2 COVID-19 PFIZER VACCINE 2020-10-24 00:00:00 Completed [facility] SARS-COV-2 COVID-19 PFIZER VACCINE 2020-10-24 00:00:00 Completed [facility] SARS-COV-2 COVID-19 PFIZER VACCINE 2020-10-24 00:00:00 Completed [facility] SARS-COV-2 COVID-19 PFIZER VACCINE 2020-10-24 00:00:00 Completed [facility] SARS-COV-2 COVID-19 PFIZER VACCINE 2020-10-24 00:00:00 Completed [facility] SARS-COV-2 COVID-19 PFIZER VACCINE 2020-10-24 00:00:00 Completed [facility] SARS-COV-2 COVID-19 PFIZER VACCINE 2020-10-24 00:00:00 Completed [facility] SARS-COV-2 COVID-19 PFIZER VACCINE 2020-10-24 00:00:00 Completed [facility] SARS-COV-2 COVID-19 PFIZER VACCINE 2020-10-24 00:00:00 Completed [facility] SARS-COV-2 COVID-19 PFIZER VACCINE 2020-10-24 00:00:00 Completed [facility] SARS-COV-2 COVID-19 PFIZER VACCINE 2020-10-24 00:00:00 Completed [facility] SARS-COV-2 COVID-19 PFIZER VACCINE 2020-10-24 00:00:00 Completed [facility] SARS-COV-2 COVID-19 PFIZER VACCINE 2020-10-24 00:00:00 Completed [facility] SARS-COV-2 COVID-19 PFIZER VACCINE 2020-10-24 00:00:00 Completed [facility] SARS-COV-2 COVID-19 PFIZER VACCINE 2020-10-24 00:00:00 Completed [facility] SARS-COV-2 COVID-19 PFIZER VACCINE 2020-10-24 00:00:00 Completed [facility] SARS-COV-2 COVID-19 PFIZER VACCINE 2020-10-24 00:00:00 Completed [facility] SARS-COV-2 COVID-19 PFIZER VACCINE 2020-10-24 00:00:00 Completed [facility] SARS-COV-2 COVID-19 PFIZER VACCINE 2020-10-24 00:00:00 Completed [facility] SARS-COV-2 COVID-19 PFIZER VACCINE 2020-10-24 00:00:00 Completed [facility] SARS-COV-2 COVID-19 PFIZER VACCINE 2020-10-24 00:00:00 Completed [facility] SARS-COV-2 COVID-19 PFIZER VACCINE 2020-10-24 00:00:00 Completed [facility] SARS-COV-2 COVID-19 PFIZER VACCINE 2020-10-24 00:00:00 Completed [facility] SARS-COV-2 COVID-19 PFIZER VACCINE 2020-10-24 00:00:00 Completed [facility] SARS-COV-2 COVID-19 PFIZER VACCINE 2020-10-24 00:00:00 Completed [facility] SARS-COV-2 COVID-19 PFIZER VACCINE 2020-10-24 00:00:00 Completed [facility] SARS-COV-2 COVID-19 PFIZER VACCINE 2020-10-24 00:00:00 Completed [facility] SARS-COV-2 COVID-19 PFIZER VACCINE 2020-10-24 00:00:00 Completed [facility] SARS-COV-2 COVID-19 PFIZER VACCINE 2020-10-24 00:00:00 Completed [facility] SARS-COV-2 COVID-19 PFIZER VACCINE 2020-10-24 00:00:00 Completed [facility] SARS-COV-2 COVID-19 PFIZER VACCINE 2020-10-24 00:00:00 Completed [facility] SARS-COV-2 COVID-19 PFIZER VACCINE 2020-10-24 00:00:00 Completed [facility] SARS-COV-2 COVID-19 PFIZER VACCINE 2020-10-24 00:00:00 Completed [facility] SARS-COV-2 COVID-19 PFIZER VACCINE 2020-10-24 00:00:00 Completed [facility] SARS-COV-2 COVID-19 PFIZER VACCINE 2020-10-24 00:00:00 Completed [facility] SARS-COV-2 COVID-19 PFIZER VACCINE 2020-10-24 00:00:00 Completed [facility] SARS-COV-2 COVID-19 PFIZER VACCINE 2020-10-24 00:00:00 Completed [facility] SARS-COV-2 COVID-19 PFIZER VACCINE 2020-10-24 00:00:00 Completed [facility] SARS-COV-2 COVID-19 PFIZER VACCINE 2020-10-24 00:00:00 Completed [facility] SARS-COV-2 COVID-19 PFIZER VACCINE 2020-10-24 00:00:00 Completed [facility] SARS-COV-2 COVID-19 PFIZER VACCINE 2020-10-24 00:00:00 Completed [facility] SARS-COV-2 COVID-19 PFIZER VACCINE 2020-10-24 00:00:00 Completed [facility] SARS-COV-2 COVID-19 PFIZER VACCINE 2020-10-24 00:00:00 Completed [facility] SARS-COV-2 COVID-19 PFIZER VACCINE 2020-10-24 00:00:00 Completed [facility] Influenza Virus Vaccine Quad .5 mL IM 6+ MO 2020-07-08 00:00:00 Completed [facility] Influenza Virus Vaccine Quad .5 mL IM 6+ MO 2020-07-08 00:00:00 Completed [facility] Influenza Virus Vaccine Quad .5 mL IM 6+ MO 2020-07-08 00:00:00 Completed [facility] Influenza Virus Vaccine Quad .5 mL IM 6+ MO 2020-07-08 00:00:00 Completed [facility] Influenza Virus Vaccine Quad .5 mL IM 6+ MO 2020-07-08 00:00:00 Completed [facility] Influenza Virus Vaccine Quad .5 mL IM 6+ MO 2020-07-08 00:00:00 Completed [facility] Influenza Virus Vaccine Quad .5 mL IM 6+ MO 2020-07-08 00:00:00 Completed [facility] Influenza Virus Vaccine Quad .5 mL IM 6+ MO 2020-07-08 00:00:00 Completed [facility] Influenza Virus Vaccine Quad .5 mL IM 6+ MO 2020-07-08 00:00:00 Completed [facility] Influenza Virus Vaccine Quad .5 mL IM 6+ MO 2020-07-08 00:00:00 Completed [facility] Influenza Virus Vaccine Quad .5 mL IM 6+ MO 2020-07-08 00:00:00 Completed [facility] Influenza Virus Vaccine Quad .5 mL IM 6+ MO 2020-07-08 00:00:00 Completed [facility] Influenza Virus Vaccine Quad .5 mL IM 6+ MO 2020-07-08 00:00:00 Completed [facility] Influenza Virus Vaccine Quad .5 mL IM 6+ MO 2020-07-08 00:00:00 Completed [facility] Influenza Virus Vaccine Quad .5 mL IM 6+ MO 2020-07-08 00:00:00 Completed [facility] Influenza Virus Vaccine Quad .5 mL IM 6+ MO 2020-07-08 00:00:00 Completed [facility] Influenza Virus Vaccine Quad .5 mL IM 6+ MO 2020-07-08 00:00:00 Completed [facility] Influenza Virus Vaccine Quad .5 mL IM 6+ MO 2020-07-08 00:00:00 Completed [facility] Influenza Virus Vaccine Quad .5 mL IM 6+ MO 2020-07-08 00:00:00 Completed [facility] Influenza Virus Vaccine Quad .5 mL IM 6+ MO 2020-07-08 00:00:00 Completed [facility] Influenza Virus Vaccine Quad .5 mL IM 6+ MO 2020-07-08 00:00:00 Completed [facility] Influenza Virus Vaccine Quad .5 mL IM 6+ MO 2020-07-08 00:00:00 Completed [facility] Influenza Virus Vaccine Quad .5 mL IM 6+ MO 2020-07-08 00:00:00 Completed [facility] Influenza Virus Vaccine Quad .5 mL IM 6+ MO 2020-07-08 00:00:00 Completed [facility] Influenza Virus Vaccine Quad .5 mL IM 6+ MO 2020-07-08 00:00:00 Completed [facility] Influenza Virus Vaccine Quad .5 mL IM 6+ MO 2020-07-08 00:00:00 Completed [facility] Influenza Virus Vaccine Quad .5 mL IM 6+ MO 2020-07-08 00:00:00 Completed [facility] Influenza Virus Vaccine Quad .5 mL IM 6+ MO 2020-07-08 00:00:00 Completed [facility] Influenza Virus Vaccine Quad .5 mL IM 6+ MO 2020-07-08 00:00:00 Completed [facility] Influenza Virus Vaccine Quad .5 mL IM 6+ MO 2020-07-08 00:00:00 Completed [facility] Influenza Virus Vaccine Quad .5 mL IM 6+ MO 2020-07-08 00:00:00 Completed [facility] Influenza Virus Vaccine Quad .5 mL IM 6+ MO 2020-07-08 00:00:00 Completed [facility] Influenza Virus Vaccine Quad .5 mL IM 6+ MO 2020-07-08 00:00:00 Completed [facility] Influenza Virus Vaccine Quad .5 mL IM 6+ MO 2020-07-08 00:00:00 Completed [facility] Influenza Virus Vaccine Quad .5 mL IM 6+ MO 2020-07-08 00:00:00 Completed [facility] Influenza Virus Vaccine Quad .5 mL IM 6+ MO 2020-07-08 00:00:00 Completed [facility] Influenza Virus Vaccine Quad .5 mL IM 6+ MO 2020-07-08 00:00:00 Completed [facility] Influenza Virus Vaccine Quad .5 mL IM 6+ MO 2020-07-08 00:00:00 Completed [facility] Influenza Virus Vaccine Quad .5 mL IM 6+ MO 2020-07-08 00:00:00 Completed [facility] Influenza Virus Vaccine Quad .5 mL IM 6+ MO 2020-07-08 00:00:00 Completed [facility] Influenza Virus Vaccine Quad .5 mL IM 6+ MO 2020-07-08 00:00:00 Completed [facility] Influenza Virus Vaccine Quad .5 mL IM 6+ MO 2020-07-08 00:00:00 Completed [facility] Influenza Virus Vaccine Quad .5 mL IM 6+ MO 2020-07-08 00:00:00 Completed [facility] Influenza Virus Vaccine Quad .5 mL IM 6+ MO 2020-07-08 00:00:00 Completed [facility] Influenza Virus Vaccine Quad .5 mL IM 6+ MO 2020-07-08 00:00:00 Completed [facility] Influenza Virus Vaccine Quad .5 mL IM 6+ MO 2020-07-08 00:00:00 Completed [facility] Influenza Virus Vaccine Quad .5 mL IM 6+ MO 2020-07-08 00:00:00 Completed [facility] Influenza Virus Vaccine Quad .5 mL IM 6+ MO 2020-07-08 00:00:00 Completed [facility] Influenza Virus Vaccine Quad .5 mL IM 6+ MO 2020-07-08 00:00:00 Completed [facility] Influenza Virus Vaccine Quad .5 mL IM 6+ MO 2020-07-08 00:00:00 Completed [facility] Influenza Virus Vaccine Quad .5 mL IM 6+ MO 2020-07-08 00:00:00 Completed [facility] Influenza Virus Vaccine Quad .5 mL IM 6+ MO 2020-07-08 00:00:00 Completed [facility] Influenza Virus Vaccine Quad .5 mL IM 6+ MO 2020-07-08 00:00:00 Completed [facility] Influenza Virus Vaccine Quad .5 mL IM 6+ MO 2020-07-08 00:00:00 Completed [facility] Influenza Virus Vaccine Quad .5 mL IM 6+ MO 2020-07-08 00:00:00 Completed [facility] Influenza Virus Vaccine Quad .5 mL IM 6+ MO 2020-07-08 00:00:00 Completed [facility] Influenza Virus Vaccine Quad .5 mL IM 6+ MO 2020-07-08 00:00:00 Completed [facility] Influenza Virus Vaccine Quad .5 mL IM 6+ MO 2020-07-08 00:00:00 Completed [facility] Influenza Virus Vaccine Quad .5 mL IM 6+ MO 2020-07-08 00:00:00 Completed [facility] Influenza Virus Vaccine Quad .5 mL IM 6+ MO 2020-07-08 00:00:00 Completed [facility] Influenza Virus Vaccine Quad .5 mL IM 6+ MO 2020-07-08 00:00:00 Completed [facility] Influenza Virus Vaccine Quad .5 mL IM 6+ MO 2020-07-08 00:00:00 Completed [facility] Influenza Virus Vaccine Quad .5 mL IM 6+ MO 2020-07-08 00:00:00 Completed [facility] Influenza Virus Vaccine Quad .5 mL IM 6+ MO 2020-07-08 00:00:00 Completed [facility] Influenza Virus Vaccine Quad .5 mL IM 6+ MO 2020-07-08 00:00:00 Completed [facility] Influenza Virus Vaccine Quad .5 mL IM 6+ MO 2020-07-08 00:00:00 Completed [facility] Influenza Virus Vaccine Quad .5 mL IM 6+ MO 2020-07-08 00:00:00 Completed [facility] Influenza Virus Vaccine Quad .5 mL IM 6+ MO 2020-07-08 00:00:00 Completed [facility] Influenza Virus Vaccine Quad .5 mL IM 6+ MO 2020-07-08 00:00:00 Completed [facility] Influenza Virus Vaccine Quad .5 mL IM 6+ MO 2020-07-08 00:00:00 Completed [facility] Influenza Virus Vaccine Quad .5 mL IM 6+ MO 2020-07-08 00:00:00 Completed [facility] Influenza Virus Vaccine Quad .5 mL IM 6+ MO 2020-07-08 00:00:00 Completed [facility] Influenza Virus Vaccine Quad .5 mL IM 6+ MO 2020-07-08 00:00:00 Completed [facility] Influenza Virus Vaccine Quad .5 mL IM 6+ MO 2020-07-08 00:00:00 Completed [facility] Influenza Virus Vaccine Quad .5 mL IM 6+ MO 2020-07-08 00:00:00 Completed [facility] Influenza Virus Vaccine Quad .5 mL IM 6+ MO 2020-07-08 00:00:00 Completed [facility] Influenza Virus Vaccine Quad .5 mL IM 6+ MO 2020-07-08 00:00:00 Completed [facility] Influenza Virus Vaccine Quad .5 mL IM 6+ MO 2020-07-08 00:00:00 Completed [facility] Influenza Virus Vaccine Quad .5 mL IM 6+ MO 2020-07-08 00:00:00 Completed [facility] Influenza Virus Vaccine Quad .5 mL IM 6+ MO 2020-07-08 00:00:00 Completed [facility] Influenza Virus Vaccine Quad .5 mL IM 6+ MO 2020-07-08 00:00:00 Completed [facility] Influenza Virus Vaccine Quad .5 mL IM 6+ MO 2020-07-08 00:00:00 Completed [facility] Influenza Virus Vaccine Quad .5 mL IM 6+ MO 2020-07-08 00:00:00 Completed [facility] Influenza Virus Vaccine Quad .5 mL IM 6+ MO 2020-07-08 00:00:00 Completed [facility] Influenza Virus Vaccine Quad .5 mL IM 6+ MO 2020-07-08 00:00:00 Completed [facility] Influenza Virus Vaccine Quad .5 mL IM 6+ MO 2020-07-08 00:00:00 Completed [facility] Influenza Virus Vaccine Quad .5 mL IM 6+ MO 2020-07-08 00:00:00 Completed [facility] Influenza Virus Vaccine Quad .5 mL IM 6+ MO 2020-07-08 00:00:00 Completed [facility] Influenza Virus Vaccine Quad .5 mL IM 6+ MO 2020-07-08 00:00:00 Completed [facility] Influenza Virus Vaccine Quad .5 mL IM 6+ MO 2020-07-08 00:00:00 Completed [facility] Influenza Virus Vaccine Quad .5 mL IM 6+ MO 2020-07-08 00:00:00 Completed [facility] Influenza Virus Vaccine Quad .5 mL IM 6+ MO 2020-07-08 00:00:00 Completed [facility] Influenza Virus Vaccine Quad .5 mL IM 6+ MO 2020-07-08 00:00:00 Completed [facility] Influenza Virus Vaccine Quad .5 mL IM 6+ MO 2020-07-08 00:00:00 Completed [facility] Influenza Virus Vaccine Quad .5 mL IM 6+ MO 2020-07-08 00:00:00 Completed [facility] Influenza Virus Vaccine Quad .5 mL IM 6+ MO 2020-07-08 00:00:00 Completed [facility] Influenza Virus Vaccine Quad .5 mL IM 6+ MO (FLUZONE/FLULAVAL/FL UARIX) 2020-07-08 00:00:00 Completed [facility] Influenza Virus Vaccine Quad .5 mL IM 6+ MO (FLUZONE/FLULAVAL/FL UARIX) 2020-07-08 00:00:00 Completed [facility] Influenza Virus Vaccine Quad .5 mL IM 6+ MO (FLUZONE/FLULAVAL/FL UARIX) 2020-07-08 00:00:00 Completed [facility] Influenza Virus Vaccine Quad .5 mL IM 6+ MO (FLUZONE/FLULAVAL/FL UARIX) 2020-07-08 00:00:00 Completed [facility] Influenza Virus Vaccine Quad .5 mL IM 6+ MO (FLUZONE/FLULAVAL/FL UARIX) 2020-07-08 00:00:00 Completed [facility] Influenza Virus Vaccine Quad .5 mL IM 6+ MO (FLUZONE/FLULAVAL/FL UARIX) 2020-07-08 00:00:00 Completed [facility] Influenza Virus Vaccine Quad .5 mL IM 6+ MO (FLUZONE/FLULAVAL/FL UARIX) 2020-07-08 00:00:00 Completed [facility] Influenza Virus Vaccine Quad .5 mL IM 6+ MO (FLUZONE/FLULAVAL/FL UARIX) 2020-07-08 00:00:00 Completed [facility] Influenza Virus Vaccine Quad .5 mL IM 6+ MO (FLUZONE/FLULAVAL/FL UARIX) 2020-07-08 00:00:00 Completed [facility] Meningococcal B, OMV 2018-10-31 00:00:00 Completed [facility] Meningococcal B, OMV 2018-10-31 00:00:00 Completed [facility] Meningococcal B, OMV 2018-10-31 00:00:00 Completed [facility] Meningococcal B, OMV 2018-10-31 00:00:00 Completed [facility] Meningococcal B, OMV 2018-10-31 00:00:00 Completed [facility] Meningococcal B, OMV 2018-10-31 00:00:00 Completed [facility] Meningococcal B, OMV 2018-10-31 00:00:00 Completed [facility] Meningococcal B, OMV 2018-10-31 00:00:00 Completed [facility] Meningococcal B, OMV 2018-10-31 00:00:00 Completed [facility] Meningococcal B, OMV 2018-10-31 00:00:00 Completed [facility] Meningococcal B, OMV 2018-10-31 00:00:00 Completed [facility] Meningococcal B, OMV 2018-10-31 00:00:00 Completed [facility] Meningococcal B, OMV 2018-10-31 00:00:00 Completed [facility] Meningococcal B, OMV 2018-10-31 00:00:00 Completed [facility] Meningococcal B, OMV 2018-10-31 00:00:00 Completed [facility] Meningococcal B, OMV 2018-10-31 00:00:00 Completed [facility] Meningococcal B, OMV 2018-10-31 00:00:00 Completed [facility] Meningococcal B, OMV 2018-10-31 00:00:00 Completed [facility] Meningococcal B, OMV 2018-10-31 00:00:00 Completed [facility] Meningococcal B, OMV 2018-10-31 00:00:00 Completed [facility] Meningococcal B, OMV 2018-10-31 00:00:00 Completed [facility] Meningococcal B, OMV 2018-10-31 00:00:00 Completed [facility] Meningococcal B, OMV 2018-10-31 00:00:00 Completed [facility] Meningococcal B, OMV 2018-10-31 00:00:00 Completed [facility] Meningococcal B, OMV 2018-10-31 00:00:00 Completed [facility] Meningococcal B, OMV 2018-10-31 00:00:00 Completed [facility] Meningococcal B, OMV 2018-10-31 00:00:00 Completed [facility] Meningococcal B, OMV 2018-10-31 00:00:00 Completed [facility] Meningococcal B, OMV 2018-10-31 00:00:00 Completed [facility] Meningococcal B, OMV 2018-10-31 00:00:00 Completed [facility] Meningococcal B, OMV 2018-10-31 00:00:00 Completed [facility] Meningococcal B, OMV 2018-10-31 00:00:00 Completed [facility] Meningococcal B, OMV 2018-10-31 00:00:00 Completed [facility] Meningococcal B, OMV 2018-10-31 00:00:00 Completed [facility] Meningococcal B, OMV 2018-10-31 00:00:00 Completed [facility] Meningococcal B, OMV 2018-10-31 00:00:00 Completed [facility] Meningococcal B, OMV 2018-10-31 00:00:00 Completed [facility] Meningococcal B, OMV 2018-10-31 00:00:00 Completed [facility] Meningococcal B, OMV 2018-10-31 00:00:00 Completed [facility] Meningococcal B, OMV 2018-10-31 00:00:00 Completed [facility] Meningococcal B, OMV 2018-10-31 00:00:00 Completed [facility] Meningococcal B, OMV 2018-10-31 00:00:00 Completed [facility] Meningococcal B, OMV 2018-10-31 00:00:00 Completed [facility] Meningococcal B, OMV 2018-10-31 00:00:00 Completed [facility] Meningococcal B, OMV 2018-10-31 00:00:00 Completed [facility] Meningococcal B, OMV 2018-10-31 00:00:00 Completed [facility] Meningococcal B, OMV 2018-10-31 00:00:00 Completed [facility] Meningococcal B, OMV 2018-10-31 00:00:00 Completed [facility] Meningococcal B, OMV 2018-10-31 00:00:00 Completed [facility] Meningococcal B, OMV 2018-10-31 00:00:00 Completed [facility] Meningococcal B, OMV 2018-10-31 00:00:00 Completed [facility] Meningococcal B, OMV 2018-10-31 00:00:00 Completed [facility] Meningococcal B, OMV 2018-10-31 00:00:00 Completed [facility] Meningococcal B, OMV 2018-10-31 00:00:00 Completed [facility] Meningococcal B, OMV 2018-10-31 00:00:00 Completed [facility] Meningococcal B, OMV 2018-10-31 00:00:00 Completed [facility] Meningococcal B, OMV 2018-10-31 00:00:00 Completed [facility] Meningococcal B, OMV 2018-10-31 00:00:00 Completed [facility] Meningococcal B, OMV 2018-10-31 00:00:00 Completed [facility] Meningococcal B, OMV 2018-10-31 00:00:00 Completed [facility] Meningococcal B, OMV 2018-10-31 00:00:00 Completed [facility] Meningococcal B, OMV 2018-10-31 00:00:00 Completed [facility] Meningococcal B, OMV 2018-10-31 00:00:00 Completed [facility] Meningococcal B, OMV 2018-10-31 00:00:00 Completed [facility] Meningococcal B, OMV 2018-10-31 00:00:00 Completed [facility] Meningococcal B, OMV 2018-10-31 00:00:00 Completed [facility] Meningococcal B, OMV 2018-10-31 00:00:00 Completed [facility] Meningococcal B, OMV 2018-10-31 00:00:00 Completed [facility] Meningococcal B, OMV 2018-10-31 00:00:00 Completed [facility] Meningococcal B, OMV 2018-10-31 00:00:00 Completed [facility] Meningococcal B, OMV 2018-10-31 00:00:00 Completed [facility] Meningococcal B, OMV 2018-10-31 00:00:00 Completed [facility] Meningococcal B, OMV 2018-10-31 00:00:00 Completed [facility] Meningococcal B, OMV 2018-10-31 00:00:00 Completed [facility] Meningococcal B, OMV 2018-10-31 00:00:00 Completed [facility] Meningococcal B, OMV 2018-10-31 00:00:00 Completed [facility] Meningococcal B, OMV 2018-10-31 00:00:00 Completed [facility] Meningococcal B, OMV 2018-10-31 00:00:00 Completed [facility] Meningococcal B, OMV 2018-10-31 00:00:00 Completed [facility] Meningococcal B, OMV 2018-10-31 00:00:00 Completed [facility] Meningococcal B, OMV 2018-10-31 00:00:00 Completed [facility] Meningococcal B, OMV 2018-10-31 00:00:00 Completed [facility] Meningococcal B, OMV 2018-10-31 00:00:00 Completed [facility] Meningococcal B, OMV 2018-10-31 00:00:00 Completed [facility] Meningococcal B, OMV 2018-10-31 00:00:00 Completed [facility] Meningococcal B, OMV 2018-10-31 00:00:00 Completed [facility] Meningococcal B, OMV 2018-10-31 00:00:00 Completed [facility] Meningococcal B, OMV 2018-10-31 00:00:00 [facility] [facility] Meningococcal B, OMV 2018-10-31 00:00:00 Completed [facility] Meningococcal B, OMV 2018-10-31 00:00:00 Completed [facility] Meningococcal B, OMV 2018-10-31 00:00:00 Completed [facility] Meningococcal B, OMV 2018-10-31 00:00:00 Completed [facility] Meningococcal B, OMV 2018-10-31 00:00:00 Completed [facility] Meningococcal B, OMV 2018-10-31 00:00:00 Completed [facility] Meningococcal B, OMV 2018-10-31 00:00:00 Completed [facility] Meningococcal B, OMV 2018-10-31 00:00:00 Completed [facility] Meningococcal B, OMV 2018-10-31 00:00:00 Completed [facility] Meningococcal B, OMV 2018-10-31 00:00:00 Completed [facility] Meningococcal B, OMV 2018-10-31 00:00:00 Completed [facility] Meningococcal B, OMV 2018-10-31 00:00:00 Completed [facility] Meningococcal B, OMV 2018-10-31 00:00:00 Completed [facility] Meningococcal B, OMV 2018-10-31 00:00:00 Completed [facility] Meningococcal B, OMV 2018-10-31 00:00:00 Completed [facility] Meningococcal B, OMV 2018-10-31 00:00:00 Completed [facility] Meningococcal B, OMV 2018-10-31 00:00:00 Completed [facility] Influenza Virus Vaccine Quad .5 mL IM 6+ MO 2018-08-29 00:00:00 Completed [facility] Meningococcal B, OMV 2018-08-29 00:00:00 Completed [facility] Influenza Virus Vaccine Quad .5 mL IM 6+ MO 2018-08-29 00:00:00 Completed [facility] Meningococcal B, OMV 2018-08-29 00:00:00 Completed [facility] Influenza Virus Vaccine Quad .5 mL IM 6+ MO 2018-08-29 00:00:00 Completed [facility] Meningococcal B, OMV 2018-08-29 00:00:00 Completed [facility] Influenza Virus Vaccine Quad .5 mL IM 6+ MO 2018-08-29 00:00:00 Completed [facility] Meningococcal B, OMV 2018-08-29 00:00:00 Completed [facility] Influenza Virus Vaccine Quad .5 mL IM 6+ MO 2018-08-29 00:00:00 Completed [facility] Meningococcal B, OMV 2018-08-29 00:00:00 Completed [facility] Influenza Virus Vaccine Quad .5 mL IM 6+ MO 2018-08-29 00:00:00 Completed [facility] Meningococcal B, OMV 2018-08-29 00:00:00 Completed [facility] Influenza Virus Vaccine Quad .5 mL IM 6+ MO 2018-08-29 00:00:00 Completed [facility] Meningococcal B, OMV 2018-08-29 00:00:00 Completed [facility] Influenza Virus Vaccine Quad .5 mL IM 6+ MO 2018-08-29 00:00:00 Completed [facility] Meningococcal B, OMV 2018-08-29 00:00:00 Completed [facility] Influenza Virus Vaccine Quad .5 mL IM 6+ MO 2018-08-29 00:00:00 Completed [facility] Meningococcal B, OMV 2018-08-29 00:00:00 Completed [facility] Influenza Virus Vaccine Quad .5 mL IM 6+ MO 2018-08-29 00:00:00 Completed [facility] Meningococcal B, OMV 2018-08-29 00:00:00 Completed [facility] Influenza Virus Vaccine Quad .5 mL IM 6+ MO 2018-08-29 00:00:00 Completed [facility] Meningococcal B, OMV 2018-08-29 00:00:00 Completed [facility] Influenza Virus Vaccine Quad .5 mL IM 6+ MO 2018-08-29 00:00:00 Completed [facility] Meningococcal B, OMV 2018-08-29 00:00:00 Completed [facility] Influenza Virus Vaccine Quad .5 mL IM 6+ MO 2018-08-29 00:00:00 Completed [facility] Meningococcal B, OMV 2018-08-29 00:00:00 Completed [facility] Influenza Virus Vaccine Quad .5 mL IM 6+ MO 2018-08-29 00:00:00 Completed [facility] Meningococcal B, OMV 2018-08-29 00:00:00 Completed [facility] Influenza Virus Vaccine Quad .5 mL IM 6+ MO 2018-08-29 00:00:00 Completed [facility] Meningococcal B, OMV 2018-08-29 00:00:00 Completed [facility] Influenza Virus Vaccine Quad .5 mL IM 6+ MO 2018-08-29 00:00:00 Completed [facility] Meningococcal B, OMV 2018-08-29 00:00:00 Completed [facility] Influenza Virus Vaccine Quad .5 mL IM 6+ MO 2018-08-29 00:00:00 Completed [facility] Meningococcal B, OMV 2018-08-29 00:00:00 Completed [facility] Influenza Virus Vaccine Quad .5 mL IM 6+ MO 2018-08-29 00:00:00 Completed [facility] Meningococcal B, OMV 2018-08-29 00:00:00 Completed [facility] Influenza Virus Vaccine Quad .5 mL IM 6+ MO 2018-08-29 00:00:00 Completed [facility] Meningococcal B, OMV 2018-08-29 00:00:00 Completed [facility] Influenza Virus Vaccine Quad .5 mL IM 6+ MO 2018-08-29 00:00:00 Completed [facility] Meningococcal B, OMV 2018-08-29 00:00:00 Completed [facility] Influenza Virus Vaccine Quad .5 mL IM 6+ MO 2018-08-29 00:00:00 Completed [facility] Meningococcal B, OMV 2018-08-29 00:00:00 Completed [facility] Influenza Virus Vaccine Quad .5 mL IM 6+ MO 2018-08-29 00:00:00 Completed [facility] Meningococcal B, OMV 2018-08-29 00:00:00 Completed [facility] Influenza Virus Vaccine Quad .5 mL IM 6+ MO 2018-08-29 00:00:00 Completed [facility] Meningococcal B, OMV 2018-08-29 00:00:00 Completed [facility] Influenza Virus Vaccine Quad .5 mL IM 6+ MO 2018-08-29 00:00:00 Completed [facility] Meningococcal B, OMV 2018-08-29 00:00:00 Completed [facility] Influenza Virus Vaccine Quad .5 mL IM 6+ MO 2018-08-29 00:00:00 Completed [facility] Meningococcal B, OMV 2018-08-29 00:00:00 Completed [facility] Influenza Virus Vaccine Quad .5 mL IM 6+ MO 2018-08-29 00:00:00 Completed [facility] Meningococcal B, OMV 2018-08-29 00:00:00 Completed [facility] Influenza Virus Vaccine Quad .5 mL IM 6+ MO 2018-08-29 00:00:00 Completed [facility] Meningococcal B, OMV 2018-08-29 00:00:00 Completed [facility] Influenza Virus Vaccine Quad .5 mL IM 6+ MO 2018-08-29 00:00:00 Completed [facility] Meningococcal B, OMV 2018-08-29 00:00:00 Completed [facility] Influenza Virus Vaccine Quad .5 mL IM 6+ MO 2018-08-29 00:00:00 Completed [facility] Meningococcal B, OMV 2018-08-29 00:00:00 Completed [facility] Influenza Virus Vaccine Quad .5 mL IM 6+ MO 2018-08-29 00:00:00 Completed [facility] Meningococcal B, OMV 2018-08-29 00:00:00 Completed [facility] Influenza Virus Vaccine Quad .5 mL IM 6+ MO 2018-08-29 00:00:00 Completed [facility] Meningococcal B, OMV 2018-08-29 00:00:00 Completed [facility] Influenza Virus Vaccine Quad .5 mL IM 6+ MO 2018-08-29 00:00:00 Completed [facility] Meningococcal B, OMV 2018-08-29 00:00:00 Completed [facility] Influenza Virus Vaccine Quad .5 mL IM 6+ MO 2018-08-29 00:00:00 Completed [facility] Meningococcal B, OMV 2018-08-29 00:00:00 Completed [facility] Influenza Virus Vaccine Quad .5 mL IM 6+ MO 2018-08-29 00:00:00 Completed [facility] Meningococcal B, OMV 2018-08-29 00:00:00 Completed [facility] Influenza Virus Vaccine Quad .5 mL IM 6+ MO 2018-08-29 00:00:00 Completed [facility] Meningococcal B, OMV 2018-08-29 00:00:00 Completed [facility] Influenza Virus Vaccine Quad .5 mL IM 6+ MO 2018-08-29 00:00:00 Completed [facility] Meningococcal B, OMV 2018-08-29 00:00:00 Completed [facility] Influenza Virus Vaccine Quad .5 mL IM 6+ MO 2018-08-29 00:00:00 Completed [facility] Meningococcal B, OMV 2018-08-29 00:00:00 Completed [facility] Influenza Virus Vaccine Quad .5 mL IM 6+ MO 2018-08-29 00:00:00 Completed [facility] Meningococcal B, OMV 2018-08-29 00:00:00 Completed [facility] Influenza Virus Vaccine Quad .5 mL IM 6+ MO 2018-08-29 00:00:00 Completed [facility] Meningococcal B, OMV 2018-08-29 00:00:00 Completed [facility] Influenza Virus Vaccine Quad .5 mL IM 6+ MO 2018-08-29 00:00:00 Completed [facility] Meningococcal B, OMV 2018-08-29 00:00:00 Completed [facility] Influenza Virus Vaccine Quad .5 mL IM 6+ MO 2018-08-29 00:00:00 Completed [facility] Meningococcal B, OMV 2018-08-29 00:00:00 Completed [facility] Influenza Virus Vaccine Quad .5 mL IM 6+ MO 2018-08-29 00:00:00 Completed [facility] Meningococcal B, OMV 2018-08-29 00:00:00 Completed [facility] Influenza Virus Vaccine Quad .5 mL IM 6+ MO 2018-08-29 00:00:00 Completed [facility] Meningococcal B, OMV 2018-08-29 00:00:00 Completed [facility] Influenza Virus Vaccine Quad .5 mL IM 6+ MO 2018-08-29 00:00:00 Completed [facility] Meningococcal B, OMV 2018-08-29 00:00:00 Completed [facility] Influenza Virus Vaccine Quad .5 mL IM 6+ MO 2018-08-29 00:00:00 Completed [facility] Meningococcal B, OMV 2018-08-29 00:00:00 Completed [facility] Influenza Virus Vaccine Quad .5 mL IM 6+ MO 2018-08-29 00:00:00 Completed [facility] Meningococcal B, OMV 2018-08-29 00:00:00 Completed [facility] Influenza Virus Vaccine Quad .5 mL IM 6+ MO 2018-08-29 00:00:00 Completed [facility] Meningococcal B, OMV 2018-08-29 00:00:00 Completed [facility] Influenza Virus Vaccine Quad .5 mL IM 6+ MO 2018-08-29 00:00:00 Completed [facility] Meningococcal B, OMV 2018-08-29 00:00:00 Completed [facility] Influenza Virus Vaccine Quad .5 mL IM 6+ MO 2018-08-29 00:00:00 Completed [facility] Meningococcal B, OMV 2018-08-29 00:00:00 Completed [facility] Influenza Virus Vaccine Quad .5 mL IM 6+ MO 2018-08-29 00:00:00 Completed [facility] Meningococcal B, OMV 2018-08-29 00:00:00 Completed [facility] Influenza Virus Vaccine Quad .5 mL IM 6+ MO 2018-08-29 00:00:00 Completed [facility] Meningococcal B, OMV 2018-08-29 00:00:00 Completed [facility] Influenza Virus Vaccine Quad .5 mL IM 6+ MO 2018-08-29 00:00:00 Completed [facility] Meningococcal B, OMV 2018-08-29 00:00:00 Completed [facility] Influenza Virus Vaccine Quad .5 mL IM 6+ MO 2018-08-29 00:00:00 Completed [facility] Meningococcal B, OMV 2018-08-29 00:00:00 Completed [facility] Influenza Virus Vaccine Quad .5 mL IM 6+ MO 2018-08-29 00:00:00 Completed [facility] Meningococcal B, OMV 2018-08-29 00:00:00 Completed [facility] Influenza Virus Vaccine Quad .5 mL IM 6+ MO 2018-08-29 00:00:00 Completed [facility] Meningococcal B, OMV 2018-08-29 00:00:00 Completed [facility] Influenza Virus Vaccine Quad .5 mL IM 6+ MO 2018-08-29 00:00:00 Completed [facility] Meningococcal B, OMV 2018-08-29 00:00:00 Completed [facility] Influenza Virus Vaccine Quad .5 mL IM 6+ MO 2018-08-29 00:00:00 Completed [facility] Meningococcal B, OMV 2018-08-29 00:00:00 Completed [facility] Influenza Virus Vaccine Quad .5 mL IM 6+ MO 2018-08-29 00:00:00 Completed [facility] Meningococcal B, OMV 2018-08-29 00:00:00 Completed [facility] Influenza Virus Vaccine Quad .5 mL IM 6+ MO 2018-08-29 00:00:00 Completed [facility] Meningococcal B, OMV 2018-08-29 00:00:00 Completed [facility] Influenza Virus Vaccine Quad .5 mL IM 6+ MO 2018-08-29 00:00:00 Completed [facility] Meningococcal B, OMV 2018-08-29 00:00:00 Completed [facility] Influenza Virus Vaccine Quad .5 mL IM 6+ MO 2018-08-29 00:00:00 Completed [facility] Meningococcal B, OMV 2018-08-29 00:00:00 Completed [facility] Influenza Virus Vaccine Quad .5 mL IM 6+ MO 2018-08-29 00:00:00 Completed [facility] Meningococcal B, OMV 2018-08-29 00:00:00 Completed [facility] Influenza Virus Vaccine Quad .5 mL IM 6+ MO 2018-08-29 00:00:00 Completed [facility] Meningococcal B, OMV 2018-08-29 00:00:00 Completed [facility] Influenza Virus Vaccine Quad .5 mL IM 6+ MO 2018-08-29 00:00:00 Completed [facility] Meningococcal B, OMV 2018-08-29 00:00:00 Completed [facility] Influenza Virus Vaccine Quad .5 mL IM 6+ MO 2018-08-29 00:00:00 Completed [facility] Meningococcal B, OMV 2018-08-29 00:00:00 Completed [facility] Influenza Virus Vaccine Quad .5 mL IM 6+ MO 2018-08-29 00:00:00 Completed [facility] Meningococcal B, OMV 2018-08-29 00:00:00 Completed [facility] Influenza Virus Vaccine Quad .5 mL IM 6+ MO 2018-08-29 00:00:00 Completed [facility] Meningococcal B, OMV 2018-08-29 00:00:00 Completed [facility] Influenza Virus Vaccine Quad .5 mL IM 6+ MO 2018-08-29 00:00:00 Completed [facility] Meningococcal B, OMV 2018-08-29 00:00:00 Completed [facility] Influenza Virus Vaccine Quad .5 mL IM 6+ MO 2018-08-29 00:00:00 Completed [facility] Meningococcal B, OMV 2018-08-29 00:00:00 Completed [facility] Influenza Virus Vaccine Quad .5 mL IM 6+ MO 2018-08-29 00:00:00 Completed [facility] Meningococcal B, OMV 2018-08-29 00:00:00 Completed [facility] Influenza Virus Vaccine Quad .5 mL IM 6+ MO 2018-08-29 00:00:00 Completed [facility] Meningococcal B, OMV 2018-08-29 00:00:00 Completed [facility] Influenza Virus Vaccine Quad .5 mL IM 6+ MO 2018-08-29 00:00:00 Completed [facility] Meningococcal B, OMV 2018-08-29 00:00:00 Completed [facility] Influenza Virus Vaccine Quad .5 mL IM 6+ MO 2018-08-29 00:00:00 Completed [facility] Meningococcal B, OMV 2018-08-29 00:00:00 Completed [facility] Influenza Virus Vaccine Quad .5 mL IM 6+ MO 2018-08-29 00:00:00 Completed [facility] Meningococcal B, OMV 2018-08-29 00:00:00 Completed [facility] Influenza Virus Vaccine Quad .5 mL IM 6+ MO 2018-08-29 00:00:00 Completed [facility] Meningococcal B, OMV 2018-08-29 00:00:00 Completed [facility] Influenza Virus Vaccine Quad .5 mL IM 6+ MO 2018-08-29 00:00:00 Completed [facility] Meningococcal B, OMV 2018-08-29 00:00:00 Completed [facility] Influenza Virus Vaccine Quad .5 mL IM 6+ MO 2018-08-29 00:00:00 Completed [facility] Meningococcal B, OMV 2018-08-29 00:00:00 Completed [facility] Influenza Virus Vaccine Quad .5 mL IM 6+ MO 2018-08-29 00:00:00 Completed [facility] Meningococcal B, OMV 2018-08-29 00:00:00 Completed [facility] Influenza Virus Vaccine Quad .5 mL IM 6+ MO 2018-08-29 00:00:00 Completed [facility] Meningococcal B, OMV 2018-08-29 00:00:00 Completed [facility] Influenza Virus Vaccine Quad .5 mL IM 6+ MO 2018-08-29 00:00:00 Completed [facility] Meningococcal B, OMV 2018-08-29 00:00:00 Completed [facility] Influenza Virus Vaccine Quad .5 mL IM 6+ MO 2018-08-29 00:00:00 Completed [facility] Meningococcal B, OMV 2018-08-29 00:00:00 Completed [facility] Influenza Virus Vaccine Quad .5 mL IM 6+ MO 2018-08-29 00:00:00 Completed [facility] Meningococcal B, OMV 2018-08-29 00:00:00 Completed [facility] Influenza Virus Vaccine Quad .5 mL IM 6+ MO 2018-08-29 00:00:00 Completed [facility] Meningococcal B, OMV 2018-08-29 00:00:00 Completed [facility] Influenza Virus Vaccine Quad .5 mL IM 6+ MO 2018-08-29 00:00:00 Completed [facility] Meningococcal B, OMV 2018-08-29 00:00:00 Completed [facility] Influenza Virus Vaccine Quad .5 mL IM 6+ MO 2018-08-29 00:00:00 Completed [facility] Meningococcal B, OMV 2018-08-29 00:00:00 Completed [facility] Influenza Virus Vaccine Quad .5 mL IM 6+ MO 2018-08-29 00:00:00 Completed [facility] Meningococcal B, OMV 2018-08-29 00:00:00 Completed [facility] Influenza Virus Vaccine Quad .5 mL IM 6+ MO 2018-08-29 00:00:00 Completed [facility] Meningococcal B, OMV 2018-08-29 00:00:00 Completed [facility] Influenza Virus Vaccine Quad .5 mL IM 6+ MO 2018-08-29 00:00:00 Completed [facility] Meningococcal B, OMV 2018-08-29 00:00:00 Completed [facility] Influenza Virus Vaccine Quad .5 mL IM 6+ MO 2018-08-29 00:00:00 Completed [facility] Meningococcal B, OMV 2018-08-29 00:00:00 Completed [facility] Influenza Virus Vaccine Quad .5 mL IM 6+ MO 2018-08-29 00:00:00 Completed [facility] Meningococcal B, OMV 2018-08-29 00:00:00 Completed [facility] Influenza Virus Vaccine Quad .5 mL IM 6+ MO 2018-08-29 00:00:00 Completed [facility] Meningococcal B, OMV 2018-08-29 00:00:00 Completed [facility] Influenza Virus Vaccine Quad .5 mL IM 6+ MO 2018-08-29 00:00:00 Completed [facility] Meningococcal B, OMV 2018-08-29 00:00:00 Completed [facility] Influenza Virus Vaccine Quad .5 mL IM 6+ MO 2018-08-29 00:00:00 Completed [facility] Meningococcal B, OMV 2018-08-29 00:00:00 Completed [facility] Influenza Virus Vaccine Quad .5 mL IM 6+ MO 2018-08-29 00:00:00 Completed [facility] Meningococcal B, OMV 2018-08-29 00:00:00 Completed [facility] Influenza Virus Vaccine Quad .5 mL IM 6+ MO 2018-08-29 00:00:00 Completed [facility] Meningococcal B, OMV 2018-08-29 00:00:00 Completed [facility] Influenza Virus Vaccine Quad .5 mL IM 6+ MO 2018-08-29 00:00:00 Completed [facility] Meningococcal B, OMV 2018-08-29 00:00:00 Completed [facility] Influenza Virus Vaccine Quad .5 mL IM 6+ MO (FLUZONE/FLULAVAL/FL UARIX) 2018-08-29 00:00:00 Completed [facility] Meningococcal B, OMV 2018-08-29 00:00:00 Completed [facility] Influenza Virus Vaccine Quad .5 mL IM 6+ MO (FLUZONE/FLULAVAL/FL UARIX) 2018-08-29 00:00:00 Completed [facility] Meningococcal B, OMV 2018-08-29 00:00:00 Completed [facility] Influenza Virus Vaccine Quad .5 mL IM 6+ MO (FLUZONE/FLULAVAL/FL UARIX) 2018-08-29 00:00:00 Completed [facility] Meningococcal B, OMV 2018-08-29 00:00:00 Completed [facility] Influenza Virus Vaccine Quad .5 mL IM 6+ MO (FLUZONE/FLULAVAL/FL UARIX) 2018-08-29 00:00:00 Completed [facility] Meningococcal B, OMV 2018-08-29 00:00:00 Completed [facility] Influenza Virus Vaccine Quad .5 mL IM 6+ MO (FLUZONE/FLULAVAL/FL UARIX) 2018-08-29 00:00:00 Completed [facility] Meningococcal B, OMV 2018-08-29 00:00:00 Completed [facility] Influenza Virus Vaccine Quad .5 mL IM 6+ MO (FLUZONE/FLULAVAL/FL UARIX) 2018-08-29 00:00:00 Completed [facility] Meningococcal B, OMV 2018-08-29 00:00:00 Completed [facility] Influenza Virus Vaccine Quad .5 mL IM 6+ MO (FLUZONE/FLULAVAL/FL UARIX) 2018-08-29 00:00:00 Completed [facility] Meningococcal B, OMV 2018-08-29 00:00:00 Completed [facility] Influenza Virus Vaccine Quad .5 mL IM 6+ MO (FLUZONE/FLULAVAL/FL UARIX) 2018-08-29 00:00:00 Completed [facility] Meningococcal B, OMV 2018-08-29 00:00:00 [facility] [facility] Influenza Virus Vaccine Quad .5 mL IM 6+ MO (FLUZONE/FLULAVAL/FL UARIX) 2018-08-29 00:00:00 Completed [facility] Meningococcal B, OMV 2018-08-29 00:00:00 Completed [facility] Meningococcal Polysaccharide (groups A, C, Y and W-135) conjugate vaccine (MCV4P) 2018-01-17 00:00:00 Completed [facility] Meningococcal Polysaccharide (groups A, C, Y and W-135) conjugate vaccine (MCV4P) 2018-01-17 00:00:00 Completed [facility] Meningococcal Polysaccharide (groups A, C, Y and W-135) conjugate vaccine (MCV4P) 2018-01-17 00:00:00 Completed [facility] Meningococcal Polysaccharide (groups A, C, Y and W-135) conjugate vaccine (MCV4P) 2018-01-17 00:00:00 Completed [facility] Meningococcal Polysaccharide (groups A, C, Y and W-135) conjugate vaccine (MCV4P) 2018-01-17 00:00:00 Completed [facility] Meningococcal Polysaccharide (groups A, C, Y and W-135) conjugate vaccine (MCV4P) 2018-01-17 00:00:00 Completed [facility] Meningococcal Polysaccharide (groups A, C, Y and W-135) conjugate vaccine (MCV4P) 2018-01-17 00:00:00 Completed [facility] Meningococcal Polysaccharide (groups A, C, Y and W-135) conjugate vaccine (MCV4P) 2018-01-17 00:00:00 Completed [facility] Meningococcal Polysaccharide (groups A, C, Y and W-135) conjugate vaccine (MCV4P) 2018-01-17 00:00:00 Completed [facility] Meningococcal Polysaccharide (groups A, C, Y and W-135) conjugate vaccine (MCV4P) 2018-01-17 00:00:00 Completed [facility] Meningococcal Polysaccharide (groups A, C, Y and W-135) conjugate vaccine (MCV4P) 2018-01-17 00:00:00 Completed [facility] Meningococcal Polysaccharide (groups A, C, Y and W-135) conjugate vaccine (MCV4P) 2018-01-17 00:00:00 Completed [facility] Meningococcal Polysaccharide (groups A, C, Y and W-135) conjugate vaccine (MCV4P) 2018-01-17 00:00:00 Completed [facility] Meningococcal Polysaccharide (groups A, C, Y and W-135) conjugate vaccine (MCV4P) 2018-01-17 00:00:00 Completed [facility] Meningococcal Polysaccharide (groups A, C, Y and W-135) conjugate vaccine (MCV4P) 2018-01-17 00:00:00 Completed [facility] Meningococcal Polysaccharide (groups A, C, Y and W-135) conjugate vaccine (MCV4P) 2018-01-17 00:00:00 Completed [facility] Meningococcal Polysaccharide (groups A, C, Y and W-135) conjugate vaccine (MCV4P) 2018-01-17 00:00:00 Completed [facility] Meningococcal Polysaccharide (groups A, C, Y and W-135) conjugate vaccine (MCV4P) 2018-01-17 00:00:00 Completed [facility] Meningococcal Polysaccharide (groups A, C, Y and W-135) conjugate vaccine (MCV4P) 2018-01-17 00:00:00 Completed [facility] Meningococcal Polysaccharide (groups A, C, Y and W-135) conjugate vaccine (MCV4P) 2018-01-17 00:00:00 Completed [facility] Meningococcal Polysaccharide (groups A, C, Y and W-135) conjugate vaccine (MCV4P) 2018-01-17 00:00:00 Completed [facility] Meningococcal Polysaccharide (groups A, C, Y and W-135) conjugate vaccine (MCV4P) 2018-01-17 00:00:00 Completed [facility] Meningococcal Polysaccharide (groups A, C, Y and W-135) conjugate vaccine (MCV4P) 2018-01-17 00:00:00 Completed [facility] Meningococcal Polysaccharide (groups A, C, Y and W-135) conjugate vaccine (MCV4P) 2018-01-17 00:00:00 Completed [facility] Meningococcal Polysaccharide (groups A, C, Y and W-135) conjugate vaccine (MCV4P) 2018-01-17 00:00:00 Completed [facility] Meningococcal Polysaccharide (groups A, C, Y and W-135) conjugate vaccine (MCV4P) 2018-01-17 00:00:00 Completed [facility] Meningococcal Polysaccharide (groups A, C, Y and W-135) conjugate vaccine (MCV4P) 2018-01-17 00:00:00 Completed [facility] Meningococcal Polysaccharide (groups A, C, Y and W-135) conjugate vaccine (MCV4P) 2018-01-17 00:00:00 Completed [facility] Meningococcal Polysaccharide (groups A, C, Y and W-135) conjugate vaccine (MCV4P) 2018-01-17 00:00:00 Completed [facility] Meningococcal Polysaccharide (groups A, C, Y and W-135) conjugate vaccine (MCV4P) 2018-01-17 00:00:00 Completed [facility] Meningococcal Polysaccharide (groups A, C, Y and W-135) conjugate vaccine (MCV4P) 2018-01-17 00:00:00 Completed [facility] Meningococcal Polysaccharide (groups A, C, Y and W-135) conjugate vaccine (MCV4P) 2018-01-17 00:00:00 Completed [facility] Meningococcal Polysaccharide (groups A, C, Y and W-135) conjugate vaccine (MCV4P) 2018-01-17 00:00:00 Completed [facility] Meningococcal Polysaccharide (groups A, C, Y and W-135) conjugate vaccine (MCV4P) 2018-01-17 00:00:00 Completed [facility] Meningococcal Polysaccharide (groups A, C, Y and W-135) conjugate vaccine (MCV4P) 2018-01-17 00:00:00 Completed [facility] Meningococcal Polysaccharide (groups A, C, Y and W-135) conjugate vaccine (MCV4P) 2018-01-17 00:00:00 Completed [facility] Meningococcal Polysaccharide (groups A, C, Y and W-135) conjugate vaccine (MCV4P) 2018-01-17 00:00:00 Completed [facility] Meningococcal Polysaccharide (groups A, C, Y and W-135) conjugate vaccine (MCV4P) 2018-01-17 00:00:00 Completed [facility] Meningococcal Polysaccharide (groups A, C, Y and W-135) conjugate vaccine (MCV4P) 2018-01-17 00:00:00 Completed [facility] Meningococcal Polysaccharide (groups A, C, Y and W-135) conjugate vaccine (MCV4P) 2018-01-17 00:00:00 Completed [facility] Meningococcal Polysaccharide (groups A, C, Y and W-135) conjugate vaccine (MCV4P) 2018-01-17 00:00:00 Completed [facility] Meningococcal Polysaccharide (groups A, C, Y and W-135) conjugate vaccine (MCV4P) 2018-01-17 00:00:00 Completed [facility] Meningococcal Polysaccharide (groups A, C, Y and W-135) conjugate vaccine (MCV4P) 2018-01-17 00:00:00 Completed [facility] Meningococcal Polysaccharide (groups A, C, Y and W-135) conjugate vaccine (MCV4P) 2018-01-17 00:00:00 Completed [facility] Meningococcal Polysaccharide (groups A, C, Y and W-135) conjugate vaccine (MCV4P) 2018-01-17 00:00:00 Completed [facility] Meningococcal Polysaccharide (groups A, C, Y and W-135) conjugate vaccine (MCV4P) 2018-01-17 00:00:00 Completed [facility] Meningococcal Polysaccharide (groups A, C, Y and W-135) conjugate vaccine (MCV4P) 2018-01-17 00:00:00 Completed [facility] Meningococcal Polysaccharide (groups A, C, Y and W-135) conjugate vaccine (MCV4P) 2018-01-17 00:00:00 Completed [facility] Meningococcal Polysaccharide (groups A, C, Y and W-135) conjugate vaccine (MCV4P) 2018-01-17 00:00:00 Completed [facility] Meningococcal Polysaccharide (groups A, C, Y and W-135) conjugate vaccine (MCV4P) 2018-01-17 00:00:00 Completed [facility] Meningococcal Polysaccharide (groups A, C, Y and W-135) conjugate vaccine (MCV4P) 2018-01-17 00:00:00 Completed [facility] Meningococcal Polysaccharide (groups A, C, Y and W-135) conjugate vaccine (MCV4P) 2018-01-17 00:00:00 Completed [facility] Meningococcal Polysaccharide (groups A, C, Y and W-135) conjugate vaccine (MCV4P) 2018-01-17 00:00:00 Completed [facility] Meningococcal Polysaccharide (groups A, C, Y and W-135) conjugate vaccine (MCV4P) 2018-01-17 00:00:00 Completed [facility] Meningococcal Polysaccharide (groups A, C, Y and W-135) conjugate vaccine (MCV4P) 2018-01-17 00:00:00 Completed [facility] Meningococcal Polysaccharide (groups A, C, Y and W-135) conjugate vaccine (MCV4P) 2018-01-17 00:00:00 Completed [facility] Meningococcal Polysaccharide (groups A, C, Y and W-135) conjugate vaccine (MCV4P) 2018-01-17 00:00:00 Completed [facility] Meningococcal Polysaccharide (groups A, C, Y and W-135) conjugate vaccine (MCV4P) 2018-01-17 00:00:00 Completed [facility] Meningococcal Polysaccharide (groups A, C, Y and W-135) conjugate vaccine (MCV4P) 2018-01-17 00:00:00 Completed [facility] Meningococcal Polysaccharide (groups A, C, Y and W-135) conjugate vaccine (MCV4P) 2018-01-17 00:00:00 Completed [facility] Meningococcal Polysaccharide (groups A, C, Y and W-135) conjugate vaccine (MCV4P) 2018-01-17 00:00:00 Completed [facility] Meningococcal Polysaccharide (groups A, C, Y and W-135) conjugate vaccine (MCV4P) 2018-01-17 00:00:00 Completed [facility] Meningococcal Polysaccharide (groups A, C, Y and W-135) conjugate vaccine (MCV4P) 2018-01-17 00:00:00 Completed [facility] Meningococcal Polysaccharide (groups A, C, Y and W-135) conjugate vaccine (MCV4P) 2018-01-17 00:00:00 Completed [facility] Meningococcal Polysaccharide (groups A, C, Y and W-135) conjugate vaccine (MCV4P) 2018-01-17 00:00:00 Completed [facility] Meningococcal Polysaccharide (groups A, C, Y and W-135) conjugate vaccine (MCV4P) 2018-01-17 00:00:00 Completed [facility] Meningococcal Polysaccharide (groups A, C, Y and W-135) conjugate vaccine (MCV4P) 2018-01-17 00:00:00 Completed [facility] Meningococcal Polysaccharide (groups A, C, Y and W-135) conjugate vaccine (MCV4P) 2018-01-17 00:00:00 Completed [facility] Meningococcal Polysaccharide (groups A, C, Y and W-135) conjugate vaccine (MCV4P) 2018-01-17 00:00:00 Completed [facility] Meningococcal Polysaccharide (groups A, C, Y and W-135) conjugate vaccine (MCV4P) 2018-01-17 00:00:00 Completed [facility] Meningococcal Polysaccharide (groups A, C, Y and W-135) conjugate vaccine (MCV4P) 2018-01-17 00:00:00 Completed [facility] Meningococcal Polysaccharide (groups A, C, Y and W-135) conjugate vaccine (MCV4P) 2018-01-17 00:00:00 Completed [facility] Meningococcal Polysaccharide (groups A, C, Y and W-135) conjugate vaccine (MCV4P) 2018-01-17 00:00:00 Completed [facility] Meningococcal Polysaccharide (groups A, C, Y and W-135) conjugate vaccine (MCV4P) 2018-01-17 00:00:00 Completed [facility] Meningococcal Polysaccharide (groups A, C, Y and W-135) conjugate vaccine (MCV4P) 2018-01-17 00:00:00 Completed [facility] Meningococcal Polysaccharide (groups A, C, Y and W-135) conjugate vaccine (MCV4P) 2018-01-17 00:00:00 Completed [facility] Meningococcal Polysaccharide (groups A, C, Y and W-135) conjugate vaccine (MCV4P) 2018-01-17 00:00:00 Completed [facility] Meningococcal Polysaccharide (groups A, C, Y and W-135) conjugate vaccine (MCV4P) 2018-01-17 00:00:00 Completed [facility] Meningococcal Polysaccharide (groups A, C, Y and W-135) conjugate vaccine (MCV4P) 2018-01-17 00:00:00 Completed [facility] Meningococcal Polysaccharide (groups A, C, Y and W-135) conjugate vaccine (MCV4P) 2018-01-17 00:00:00 Completed [facility] Meningococcal Polysaccharide (groups A, C, Y and W-135) conjugate vaccine (MCV4P) 2018-01-17 00:00:00 Completed [facility] Meningococcal Polysaccharide (groups A, C, Y and W-135) conjugate vaccine (MCV4P) 2018-01-17 00:00:00 Completed [facility] Meningococcal Polysaccharide (groups A, C, Y and W-135) conjugate vaccine (MCV4P) 2018-01-17 00:00:00 Completed [facility] Meningococcal Polysaccharide (groups A, C, Y and W-135) conjugate vaccine (MCV4P) 2018-01-17 00:00:00 Completed [facility] Meningococcal Polysaccharide (groups A, C, Y and W-135) conjugate vaccine (MCV4P) 2018-01-17 00:00:00 Completed [facility] Meningococcal Polysaccharide (groups A, C, Y and W-135) conjugate vaccine (MCV4P) 2018-01-17 00:00:00 Completed [facility] Meningococcal Polysaccharide (groups A, C, Y and W-135) conjugate vaccine (MCV4P) 2018-01-17 00:00:00 Completed [facility] Meningococcal Polysaccharide (groups A, C, Y and W-135) conjugate vaccine (MCV4P) 2018-01-17 00:00:00 Completed [facility] Meningococcal Polysaccharide (groups A, C, Y and W-135) conjugate vaccine (MCV4P) 2018-01-17 00:00:00 Completed [facility] Meningococcal Polysaccharide (groups A, C, Y and W-135) conjugate vaccine (MCV4P) 2018-01-17 00:00:00 Completed [facility] Meningococcal Polysaccharide (groups A, C, Y and W-135) conjugate vaccine (MCV4P) 2018-01-17 00:00:00 Completed [facility] Meningococcal Polysaccharide (groups A, C, Y and W-135) conjugate vaccine (MCV4P) 2018-01-17 00:00:00 Completed [facility] Meningococcal Polysaccharide (groups A, C, Y and W-135) conjugate vaccine (MCV4P) 2018-01-17 00:00:00 Completed [facility] Meningococcal Polysaccharide (groups A, C, Y and W-135) conjugate vaccine (MCV4P) 2018-01-17 00:00:00 Completed [facility] Meningococcal Polysaccharide (groups A, C, Y and W-135) conjugate vaccine (MCV4P) 2018-01-17 00:00:00 Completed [facility] Meningococcal Polysaccharide (groups A, C, Y and W-135) conjugate vaccine (MCV4P) 2018-01-17 00:00:00 Completed [facility] Meningococcal Polysaccharide (groups A, C, Y and W-135) conjugate vaccine (MCV4P) 2018-01-17 00:00:00 Completed [facility] Meningococcal Polysaccharide (groups A, C, Y and W-135) conjugate vaccine (MCV4P) 2018-01-17 00:00:00 Completed [facility] Meningococcal Polysaccharide (groups A, C, Y and W-135) conjugate vaccine (MCV4P) 2018-01-17 00:00:00 Completed [facility] Meningococcal Polysaccharide (groups A, C, Y and W-135) conjugate vaccine (MCV4P) 2018-01-17 00:00:00 Completed [facility] Meningococcal Polysaccharide (groups A, C, Y and W-135) conjugate vaccine (MCV4P) 2018-01-17 00:00:00 Completed [facility] Meningococcal Polysaccharide (groups A, C, Y and W-135) conjugate vaccine (MCV4P) 2018-01-17 00:00:00 Completed [facility] Meningococcal Polysaccharide (groups A, C, Y and W-135) conjugate vaccine (MCV4P) 2018-01-17 00:00:00 Completed [facility] Meningococcal Polysaccharide (groups A, C, Y and W-135) conjugate vaccine (MCV4P) 2018-01-17 00:00:00 Completed [facility] Meningococcal Polysaccharide (groups A, C, Y and W-135) conjugate vaccine (MCV4P) 2018-01-17 00:00:00 Completed [facility] Influenza Virus Vaccine Quad IM 3+ YRS 2017-04-12 00:00:00 Completed [facility] Influenza Virus Vaccine Quad IM 3+ YRS 2017-04-12 00:00:00 Completed [facility] Influenza Virus Vaccine Quad IM 3+ YRS 2017-04-12 00:00:00 Completed [facility] Influenza Virus Vaccine Quad IM 3+ YRS 2017-04-12 00:00:00 Completed [facility] Influenza Virus Vaccine Quad IM 3+ YRS 2017-04-12 00:00:00 Completed [facility] Influenza Virus Vaccine Quad IM 3+ YRS 2017-04-12 00:00:00 Completed [facility] Influenza Virus Vaccine Quad IM 3+ YRS 2017-04-12 00:00:00 Completed [facility] Influenza Virus Vaccine Quad IM 3+ YRS 2017-04-12 00:00:00 Completed [facility] Influenza Virus Vaccine Quad IM 3+ YRS 2017-04-12 00:00:00 Completed [facility] Influenza Virus Vaccine Quad IM 3+ YRS 2017-04-12 00:00:00 Completed [facility] Influenza Virus Vaccine Quad IM 3+ YRS 2017-04-12 00:00:00 Completed [facility] Influenza Virus Vaccine Quad IM 3+ YRS 2017-04-12 00:00:00 Completed [facility] Influenza Virus Vaccine Quad IM 3+ YRS 2017-04-12 00:00:00 Completed [facility] Influenza Virus Vaccine Quad IM 3+ YRS 2017-04-12 00:00:00 Completed [facility] Influenza Virus Vaccine Quad IM 3+ YRS 2017-04-12 00:00:00 Completed [facility] Influenza Virus Vaccine Quad IM 3+ YRS 2017-04-12 00:00:00 Completed [facility] Influenza Virus Vaccine Quad IM 3+ YRS 2017-04-12 00:00:00 Completed [facility] Influenza Virus Vaccine Quad IM 3+ YRS 2017-04-12 00:00:00 Completed [facility] Influenza Virus Vaccine Quad IM 3+ YRS 2017-04-12 00:00:00 Completed [facility] Influenza Virus Vaccine Quad IM 3+ YRS 2017-04-12 00:00:00 Completed [facility] Influenza Virus Vaccine Quad IM 3+ YRS 2017-04-12 00:00:00 Completed [facility] Influenza Virus Vaccine Quad IM 3+ YRS 2017-04-12 00:00:00 Completed [facility] Influenza Virus Vaccine Quad IM 3+ YRS 2017-04-12 00:00:00 Completed [facility] Influenza Virus Vaccine Quad IM 3+ YRS 2017-04-12 00:00:00 Completed [facility] Influenza Virus Vaccine Quad IM 3+ YRS 2017-04-12 00:00:00 Completed [facility] Influenza Virus Vaccine Quad IM 3+ YRS 2017-04-12 00:00:00 Completed [facility] Influenza Virus Vaccine Quad IM 3+ YRS 2017-04-12 00:00:00 Completed [facility] Influenza Virus Vaccine Quad IM 3+ YRS 2017-04-12 00:00:00 Completed [facility] Influenza Virus Vaccine Quad IM 3+ YRS 2017-04-12 00:00:00 Completed [facility] Influenza Virus Vaccine Quad IM 3+ YRS 2017-04-12 00:00:00 Completed [facility] Influenza Virus Vaccine Quad IM 3+ YRS 2017-04-12 00:00:00 Completed [facility] Influenza Virus Vaccine Quad IM 3+ YRS 2017-04-12 00:00:00 Completed [facility] Influenza Virus Vaccine Quad IM 3+ YRS 2017-04-12 00:00:00 Completed [facility] Influenza Virus Vaccine Quad IM 3+ YRS 2017-04-12 00:00:00 Completed [facility] Influenza Virus Vaccine Quad IM 3+ YRS 2017-04-12 00:00:00 Completed [facility] Influenza Virus Vaccine Quad IM 3+ YRS 2017-04-12 00:00:00 Completed [facility] Influenza Virus Vaccine Quad IM 3+ YRS 2017-04-12 00:00:00 Completed [facility] Influenza Virus Vaccine Quad IM 3+ YRS 2017-04-12 00:00:00 Completed [facility] Influenza Virus Vaccine Quad IM 3+ YRS 2017-04-12 00:00:00 Completed [facility] Influenza Virus Vaccine Quad IM 3+ YRS 2017-04-12 00:00:00 Completed [facility] Influenza Virus Vaccine Quad IM 3+ YRS 2017-04-12 00:00:00 Completed [facility] Influenza Virus Vaccine Quad IM 3+ YRS 2017-04-12 00:00:00 Completed [facility] Influenza Virus Vaccine Quad IM 3+ YRS 2017-04-12 00:00:00 Completed [facility] Influenza Virus Vaccine Quad IM 3+ YRS 2017-04-12 00:00:00 Completed [facility] Influenza Virus Vaccine Quad IM 3+ YRS 2017-04-12 00:00:00 Completed [facility] Influenza Virus Vaccine Quad IM 3+ YRS 2017-04-12 00:00:00 Completed [facility] Influenza Virus Vaccine Quad IM 3+ YRS 2017-04-12 00:00:00 Completed [facility] Influenza Virus Vaccine Quad IM 3+ YRS 2017-04-12 00:00:00 Completed [facility] Influenza Virus Vaccine Quad IM 3+ YRS 2017-04-12 00:00:00 Completed [facility] Influenza Virus Vaccine Quad IM 3+ YRS 2017-04-12 00:00:00 Completed [facility] Influenza Virus Vaccine Quad IM 3+ YRS 2017-04-12 00:00:00 Completed [facility] Influenza Virus Vaccine Quad IM 3+ YRS 2017-04-12 00:00:00 Completed [facility] Influenza Virus Vaccine Quad IM 3+ YRS 2017-04-12 00:00:00 Completed [facility] Influenza Virus Vaccine Quad IM 3+ YRS 2017-04-12 00:00:00 Completed [facility] Influenza Virus Vaccine Quad IM 3+ YRS 2017-04-12 00:00:00 Completed [facility] Influenza Virus Vaccine Quad IM 3+ YRS 2017-04-12 00:00:00 Completed [facility] Influenza Virus Vaccine Quad IM 3+ YRS 2017-04-12 00:00:00 Completed [facility] Influenza Virus Vaccine Quad IM 3+ YRS 2017-04-12 00:00:00 Completed [facility] Influenza Virus Vaccine Quad IM 3+ YRS 2017-04-12 00:00:00 Completed [facility] Influenza Virus Vaccine Quad IM 3+ YRS 2017-04-12 00:00:00 Completed [facility] Influenza Virus Vaccine Quad IM 3+ YRS 2017-04-12 00:00:00 Completed [facility] Influenza Virus Vaccine Quad IM 3+ YRS 2017-04-12 00:00:00 Completed [facility] Influenza Virus Vaccine Quad IM 3+ YRS 2017-04-12 00:00:00 Completed [facility] Influenza Virus Vaccine Quad IM 3+ YRS 2017-04-12 00:00:00 Completed [facility] Influenza Virus Vaccine Quad IM 3+ YRS 2017-04-12 00:00:00 Completed [facility] Influenza Virus Vaccine Quad IM 3+ YRS 2017-04-12 00:00:00 Completed [facility] Influenza Virus Vaccine Quad IM 3+ YRS 2017-04-12 00:00:00 Completed [facility] Influenza Virus Vaccine Quad IM 3+ YRS 2017-04-12 00:00:00 Completed [facility] Influenza Virus Vaccine Quad IM 3+ YRS 2017-04-12 00:00:00 Completed [facility] Influenza Virus Vaccine Quad IM 3+ YRS 2017-04-12 00:00:00 Completed [facility] Influenza Virus Vaccine Quad IM 3+ YRS 2017-04-12 00:00:00 Completed [facility] Influenza Virus Vaccine Quad IM 3+ YRS 2017-04-12 00:00:00 Completed [facility] Influenza Virus Vaccine Quad IM 3+ YRS 2017-04-12 00:00:00 Completed [facility] Influenza Virus Vaccine Quad IM 3+ YRS 2017-04-12 00:00:00 Completed [facility] Influenza Virus Vaccine Quad IM 3+ YRS 2017-04-12 00:00:00 Completed [facility] Influenza Virus Vaccine Quad IM 3+ YRS 2017-04-12 00:00:00 Completed [facility] Influenza Virus Vaccine Quad IM 3+ YRS 2017-04-12 00:00:00 Completed [facility] Influenza Virus Vaccine Quad IM 3+ YRS 2017-04-12 00:00:00 Completed [facility] Influenza Virus Vaccine Quad IM 3+ YRS 2017-04-12 00:00:00 Completed [facility] Influenza Virus Vaccine Quad IM 3+ YRS 2017-04-12 00:00:00 Completed [facility] Influenza Virus Vaccine Quad IM 3+ YRS 2017-04-12 00:00:00 Completed [facility] Influenza Virus Vaccine Quad IM 3+ YRS 2017-04-12 00:00:00 Completed [facility] Influenza Virus Vaccine Quad IM 3+ YRS 2017-04-12 00:00:00 Completed [facility] Influenza Virus Vaccine Quad IM 3+ YRS 2017-04-12 00:00:00 Completed [facility] Influenza Virus Vaccine Quad IM 3+ YRS 2017-04-12 00:00:00 Completed [facility] Influenza Virus Vaccine Quad IM 3+ YRS 2017-04-12 00:00:00 Completed [facility] Influenza Virus Vaccine Quad IM 3+ YRS 2017-04-12 00:00:00 Completed [facility] Influenza Virus Vaccine Quad IM 3+ YRS 2017-04-12 00:00:00 Completed [facility] Influenza Virus Vaccine Quad IM 3+ YRS 2017-04-12 00:00:00 Completed [facility] Influenza Virus Vaccine Quad IM 3+ YRS 2017-04-12 00:00:00 Completed [facility] Influenza Virus Vaccine Quad IM 3+ YRS 2017-04-12 00:00:00 Completed [facility] Influenza Virus Vaccine Quad IM 3+ YRS 2017-04-12 00:00:00 Completed [facility] Influenza Virus Vaccine Quad IM 3+ YRS 2017-04-12 00:00:00 Completed [facility] Influenza Virus Vaccine Quad IM 3+ YRS 2017-04-12 00:00:00 Completed [facility] Influenza Virus Vaccine Quad IM 3+ YRS 2017-04-12 00:00:00 Completed [facility] Influenza Virus Vaccine Quad IM 3+ YRS 2017-04-12 00:00:00 Completed [facility] Influenza Virus Vaccine Quad IM 3+ YRS 2017-04-12 00:00:00 Completed [facility] Influenza Virus Vaccine Quad IM 3+ YRS 2017-04-12 00:00:00 Completed [facility] Influenza Virus Vaccine Quad IM 3+ YRS 2017-04-12 00:00:00 Completed [facility] Influenza Virus Vaccine Quad IM 3+ YRS 2017-04-12 00:00:00 Completed [facility] Influenza Virus Vaccine Quad IM 3+ YRS 2017-04-12 00:00:00 Completed [facility] Influenza Virus Vaccine Quad IM 3+ YRS 2017-04-12 00:00:00 Completed [facility] Influenza Virus Vaccine Quad IM 3+ YRS 2017-04-12 00:00:00 Completed [facility] Influenza Virus Vaccine Quad IM 3+ YRS 2017-04-12 00:00:00 Completed [facility] Influenza Virus Vaccine Quad IM 3+ YRS 2017-04-12 00:00:00 Completed [facility] HPV9 2017-02-01 00:00:00 Completed [facility] HPV9 2017-02-01 00:00:00 Completed [facility] HPV9 2017-02-01 00:00:00 Completed [facility] HPV9 2017-02-01 00:00:00 Completed [facility] HPV9 2017-02-01 00:00:00 Completed [facility] HPV9 2017-02-01 00:00:00 Completed [facility] HPV9 2017-02-01 00:00:00 Completed [facility] HPV9 2017-02-01 00:00:00 Completed [facility] HPV9 2017-02-01 00:00:00 Completed [facility] HPV9 2017-02-01 00:00:00 Completed [facility] HPV9 2017-02-01 00:00:00 Completed [facility] HPV9 2017-02-01 00:00:00 Completed [facility] HPV9 2017-02-01 00:00:00 Completed [facility] HPV9 2017-02-01 00:00:00 Completed [facility] HPV9 2017-02-01 00:00:00 Completed [facility] HPV9 2017-02-01 00:00:00 Completed [facility] HPV9 2017-02-01 00:00:00 Completed [facility] HPV9 2017-02-01 00:00:00 Completed [facility] HPV9 2017-02-01 00:00:00 Completed [facility] HPV9 2017-02-01 00:00:00 Completed [facility] HPV9 2017-02-01 00:00:00 Completed [facility] HPV9 2017-02-01 00:00:00 Completed [facility] HPV9 2017-02-01 00:00:00 Completed [facility] HPV9 2017-02-01 00:00:00 Completed [facility] HPV9 2017-02-01 00:00:00 Completed [facility] HPV9 2017-02-01 00:00:00 Completed [facility] HPV9 2017-02-01 00:00:00 Completed [facility] HPV9 2017-02-01 00:00:00 Completed [facility] HPV9 2017-02-01 00:00:00 Completed [facility] HPV9 2017-02-01 00:00:00 Completed [facility] HPV9 2017-02-01 00:00:00 Completed [facility] HPV9 2017-02-01 00:00:00 Completed [facility] HPV9 2017-02-01 00:00:00 Completed [facility] HPV9 2017-02-01 00:00:00 Completed [facility] HPV9 2017-02-01 00:00:00 Completed [facility] HPV9 2017-02-01 00:00:00 Completed [facility] HPV9 2017-02-01 00:00:00 Completed [facility] HPV9 2017-02-01 00:00:00 Completed [facility] HPV9 2017-02-01 00:00:00 Completed [facility] HPV9 2017-02-01 00:00:00 Completed [facility] HPV9 2017-02-01 00:00:00 Completed [facility] HPV9 2017-02-01 00:00:00 Completed [facility] HPV9 2017-02-01 00:00:00 Completed [facility] HPV9 2017-02-01 00:00:00 Completed [facility] HPV9 2017-02-01 00:00:00 Completed [facility] HPV9 2017-02-01 00:00:00 Completed [facility] HPV9 2017-02-01 00:00:00 Completed [facility] HPV9 2017-02-01 00:00:00 Completed [facility] HPV9 2017-02-01 00:00:00 Completed [facility] HPV9 2017-02-01 00:00:00 Completed [facility] HPV9 2017-02-01 00:00:00 Completed [facility] HPV9 2017-02-01 00:00:00 Completed [facility] HPV9 2017-02-01 00:00:00 Completed [facility] HPV9 2017-02-01 00:00:00 Completed [facility] HPV9 2017-02-01 00:00:00 Completed [facility] HPV9 2017-02-01 00:00:00 Completed [facility] HPV9 2017-02-01 00:00:00 Completed [facility] HPV9 2017-02-01 00:00:00 Completed [facility] HPV9 2017-02-01 00:00:00 Completed [facility] HPV9 2017-02-01 00:00:00 Completed [facility] HPV9 2017-02-01 00:00:00 Completed [facility] HPV9 2017-02-01 00:00:00 Completed [facility] HPV9 2017-02-01 00:00:00 Completed [facility] HPV9 2017-02-01 00:00:00 Completed [facility] HPV9 2017-02-01 00:00:00 Completed [facility] HPV9 2017-02-01 00:00:00 Completed [facility] HPV9 2017-02-01 00:00:00 Completed [facility] HPV9 2017-02-01 00:00:00 Completed [facility] HPV9 2017-02-01 00:00:00 Completed [facility] HPV9 2017-02-01 00:00:00 Completed [facility] HPV9 2017-02-01 00:00:00 Completed [facility] HPV9 2017-02-01 00:00:00 Completed [facility] HPV9 2017-02-01 00:00:00 Completed [facility] HPV9 2017-02-01 00:00:00 Completed [facility] HPV9 2017-02-01 00:00:00 Completed [facility] HPV9 2017-02-01 00:00:00 Completed [facility] HPV9 2017-02-01 00:00:00 Completed [facility] HPV9 2017-02-01 00:00:00 Completed [facility] HPV9 2017-02-01 00:00:00 Completed [facility] HPV9 2017-02-01 00:00:00 Completed [facility] HPV9 2017-02-01 00:00:00 Completed [facility] HPV9 2017-02-01 00:00:00 Completed [facility] HPV9 2017-02-01 00:00:00 Completed [facility] HPV9 2017-02-01 00:00:00 Completed [facility] HPV9 2017-02-01 00:00:00 Completed [facility] HPV9 2017-02-01 00:00:00 Completed [facility] HPV9 2017-02-01 00:00:00 Completed [facility] HPV9 2017-02-01 00:00:00 Completed [facility] HPV9 2017-02-01 00:00:00 Completed [facility] HPV9 2017-02-01 00:00:00 Completed [facility] HPV9 2017-02-01 00:00:00 Completed [facility] HPV9 2017-02-01 00:00:00 Completed [facility] HPV9 2017-02-01 00:00:00 Completed [facility] HPV9 2017-02-01 00:00:00 Completed [facility] HPV9 2017-02-01 00:00:00 Completed [facility] HPV9 2017-02-01 00:00:00 Completed [facility] HPV9 2017-02-01 00:00:00 Completed [facility] HPV9 2017-02-01 00:00:00 Completed [facility] HPV9 2017-02-01 00:00:00 Completed [facility] HPV9 2017-02-01 00:00:00 Completed [facility] HPV9 2017-02-01 00:00:00 Completed [facility] HPV9 2017-02-01 00:00:00 Completed [facility] HPV9 2017-02-01 00:00:00 Completed [facility] HPV9 2017-02-01 00:00:00 Completed [facility] HPV9 2017-02-01 00:00:00 Completed [facility] HPV 2016-01-20 00:00:00 Completed [facility] HPV 2016-01-20 00:00:00 Completed [facility] HPV 2016-01-20 00:00:00 Completed [facility] HPV 2016-01-20 00:00:00 Completed [facility] HPV 2016-01-20 00:00:00 Completed [facility] HPV 2016-01-20 00:00:00 Completed [facility] HPV 2016-01-20 00:00:00 Completed [facility] HPV 2016-01-20 00:00:00 Completed [facility] HPV 2016-01-20 00:00:00 Completed [facility] HPV 2016-01-20 00:00:00 Completed [facility] HPV 2016-01-20 00:00:00 Completed [facility] HPV 2016-01-20 00:00:00 Completed [facility] HPV 2016-01-20 00:00:00 Completed [facility] HPV 2016-01-20 00:00:00 Completed [facility] HPV 2016-01-20 00:00:00 Completed [facility] HPV 2016-01-20 00:00:00 Completed [facility] HPV 2016-01-20 00:00:00 Completed [facility] HPV 2016-01-20 00:00:00 Completed [facility] HPV 2016-01-20 00:00:00 Completed [facility] HPV 2016-01-20 00:00:00 Completed [facility] HPV 2016-01-20 00:00:00 Completed [facility] HPV 2016-01-20 00:00:00 Completed [facility] HPV 2016-01-20 00:00:00 Completed [facility] HPV 2016-01-20 00:00:00 Completed [facility] HPV 2016-01-20 00:00:00 Completed [facility] HPV 2016-01-20 00:00:00 Completed [facility] HPV 2016-01-20 00:00:00 Completed [facility] HPV 2016-01-20 00:00:00 Completed [facility] HPV 2016-01-20 00:00:00 Completed [facility] HPV 2016-01-20 00:00:00 Completed [facility] HPV 2016-01-20 00:00:00 Completed [facility] HPV 2016-01-20 00:00:00 Completed [facility] HPV 2016-01-20 00:00:00 Completed [facility] HPV 2016-01-20 00:00:00 Completed [facility] HPV 2016-01-20 00:00:00 Completed [facility] HPV 2016-01-20 00:00:00 Completed [facility] HPV 2016-01-20 00:00:00 Completed [facility] HPV 2016-01-20 00:00:00 Completed [facility] HPV 2016-01-20 00:00:00 Completed [facility] HPV 2016-01-20 00:00:00 Completed [facility] HPV 2016-01-20 00:00:00 Completed [facility] HPV 2016-01-20 00:00:00 Completed [facility] HPV 2016-01-20 00:00:00 Completed [facility] HPV 2016-01-20 00:00:00 Completed [facility] HPV 2016-01-20 00:00:00 Completed [facility] HPV 2016-01-20 00:00:00 Completed [facility] HPV 2016-01-20 00:00:00 Completed [facility] HPV 2016-01-20 00:00:00 Completed [facility] HPV 2016-01-20 00:00:00 Completed [facility] HPV 2016-01-20 00:00:00 Completed [facility] HPV 2016-01-20 00:00:00 Completed [facility] HPV 2016-01-20 00:00:00 Completed [facility] HPV 2016-01-20 00:00:00 Completed [facility] HPV 2016-01-20 00:00:00 Completed [facility] HPV 2016-01-20 00:00:00 Completed [facility] HPV 2016-01-20 00:00:00 Completed [facility] HPV 2016-01-20 00:00:00 Completed [facility] HPV 2016-01-20 00:00:00 Completed [facility] HPV 2016-01-20 00:00:00 Completed [facility] HPV 2016-01-20 00:00:00 Completed [facility] HPV 2016-01-20 00:00:00 Completed [facility] HPV 2016-01-20 00:00:00 Completed [facility] HPV 2016-01-20 00:00:00 Completed [facility] HPV 2016-01-20 00:00:00 Completed [facility] HPV 2016-01-20 00:00:00 Completed [facility] HPV 2016-01-20 00:00:00 Completed [facility] HPV 2016-01-20 00:00:00 Completed [facility] HPV 2016-01-20 00:00:00 Completed [facility] HPV 2016-01-20 00:00:00 Completed [facility] HPV 2016-01-20 00:00:00 Completed [facility] HPV 2016-01-20 00:00:00 Completed [facility] HPV 2016-01-20 00:00:00 Completed [facility] HPV 2016-01-20 00:00:00 Completed [facility] HPV 2016-01-20 00:00:00 Completed [facility] HPV 2016-01-20 00:00:00 Completed [facility] HPV 2016-01-20 00:00:00 Completed [facility] HPV 2016-01-20 00:00:00 Completed [facility] HPV 2016-01-20 00:00:00 Completed [facility] HPV 2016-01-20 00:00:00 Completed [facility] HPV 2016-01-20 00:00:00 Completed [facility] HPV 2016-01-20 00:00:00 Completed [facility] HPV 2016-01-20 00:00:00 Completed [facility] HPV 2016-01-20 00:00:00 Completed [facility] HPV 2016-01-20 00:00:00 Completed [facility] HPV 2016-01-20 00:00:00 Completed [facility] HPV 2016-01-20 00:00:00 Completed [facility] HPV 2016-01-20 00:00:00 Completed [facility] HPV 2016-01-20 00:00:00 Completed [facility] HPV 2016-01-20 00:00:00 Completed [facility] HPV 2016-01-20 00:00:00 Completed [facility] HPV 2016-01-20 00:00:00 Completed [facility] HPV 2016-01-20 00:00:00 Completed [facility] HPV 2016-01-20 00:00:00 Completed [facility] HPV 2016-01-20 00:00:00 Completed [facility] HPV 2016-01-20 00:00:00 Completed [facility] HPV 2016-01-20 00:00:00 Completed [facility] HPV 2016-01-20 00:00:00 Completed [facility] HPV 2016-01-20 00:00:00 Completed [facility] HPV 2016-01-20 00:00:00 Completed [facility] HPV 2016-01-20 00:00:00 Completed [facility] HPV 2016-01-20 00:00:00 Completed [facility] HPV 2016-01-20 00:00:00 Completed [facility] HPV 2016-01-20 00:00:00 Completed [facility] HPV 2016-01-20 00:00:00 Completed [facility] HPV 2016-01-20 00:00:00 Completed [facility] Influenza Virus Vaccine Quad IM 3+ YRS 2015-07-08 00:00:00 Completed [facility] HPV9 2015-07-08 00:00:00 Completed [facility] Influenza Virus Vaccine Quad IM 3+ YRS 2015-07-08 00:00:00 Completed [facility] HPV9 2015-07-08 00:00:00 Completed [facility] Influenza Virus Vaccine Quad IM 3+ YRS 2015-07-08 00:00:00 Completed [facility] HPV9 2015-07-08 00:00:00 Completed [facility] Influenza Virus Vaccine Quad IM 3+ YRS 2015-07-08 00:00:00 Completed [facility] HPV9 2015-07-08 00:00:00 Completed [facility] Influenza Virus Vaccine Quad IM 3+ YRS 2015-07-08 00:00:00 Completed [facility] HPV9 2015-07-08 00:00:00 Completed [facility] Influenza Virus Vaccine Quad IM 3+ YRS 2015-07-08 00:00:00 Completed [facility] HPV9 2015-07-08 00:00:00 Completed [facility] Influenza Virus Vaccine Quad IM 3+ YRS 2015-07-08 00:00:00 Completed [facility] HPV9 2015-07-08 00:00:00 Completed [facility] Influenza Virus Vaccine Quad IM 3+ YRS 2015-07-08 00:00:00 Completed [facility] HPV9 2015-07-08 00:00:00 Completed [facility] Influenza Virus Vaccine Quad IM 3+ YRS 2015-07-08 00:00:00 Completed [facility] HPV9 2015-07-08 00:00:00 Completed [facility] Influenza Virus Vaccine Quad IM 3+ YRS 2015-07-08 00:00:00 Completed [facility] HPV9 2015-07-08 00:00:00 Completed [facility] Influenza Virus Vaccine Quad IM 3+ YRS 2015-07-08 00:00:00 Completed [facility] HPV9 2015-07-08 00:00:00 Completed [facility] Influenza Virus Vaccine Quad IM 3+ YRS 2015-07-08 00:00:00 Completed [facility] HPV9 2015-07-08 00:00:00 Completed [facility] Influenza Virus Vaccine Quad IM 3+ YRS 2015-07-08 00:00:00 Completed [facility] HPV9 2015-07-08 00:00:00 Completed [facility] Influenza Virus Vaccine Quad IM 3+ YRS 2015-07-08 00:00:00 Completed [facility] HPV9 2015-07-08 00:00:00 Completed [facility] Influenza Virus Vaccine Quad IM 3+ YRS 2015-07-08 00:00:00 Completed [facility] HPV9 2015-07-08 00:00:00 Completed [facility] Influenza Virus Vaccine Quad IM 3+ YRS 2015-07-08 00:00:00 Completed [facility] HPV9 2015-07-08 00:00:00 Completed [facility] Influenza Virus Vaccine Quad IM 3+ YRS 2015-07-08 00:00:00 Completed [facility] HPV9 2015-07-08 00:00:00 Completed [facility] Influenza Virus Vaccine Quad IM 3+ YRS 2015-07-08 00:00:00 Completed [facility] HPV9 2015-07-08 00:00:00 Completed [facility] Influenza Virus Vaccine Quad IM 3+ YRS 2015-07-08 00:00:00 Completed [facility] HPV9 2015-07-08 00:00:00 Completed [facility] Influenza Virus Vaccine Quad IM 3+ YRS 2015-07-08 00:00:00 Completed [facility] HPV9 2015-07-08 00:00:00 Completed [facility] Influenza Virus Vaccine Quad IM 3+ YRS 2015-07-08 00:00:00 Completed [facility] HPV9 2015-07-08 00:00:00 Completed [facility] Influenza Virus Vaccine Quad IM 3+ YRS 2015-07-08 00:00:00 Completed [facility] HPV9 2015-07-08 00:00:00 Completed [facility] Influenza Virus Vaccine Quad IM 3+ YRS 2015-07-08 00:00:00 Completed [facility] HPV9 2015-07-08 00:00:00 Completed [facility] Influenza Virus Vaccine Quad IM 3+ YRS 2015-07-08 00:00:00 Completed [facility] HPV9 2015-07-08 00:00:00 Completed [facility] Influenza Virus Vaccine Quad IM 3+ YRS 2015-07-08 00:00:00 Completed [facility] HPV9 2015-07-08 00:00:00 Completed [facility] Influenza Virus Vaccine Quad IM 3+ YRS 2015-07-08 00:00:00 Completed [facility] HPV9 2015-07-08 00:00:00 Completed [facility] Influenza Virus Vaccine Quad IM 3+ YRS 2015-07-08 00:00:00 Completed [facility] HPV9 2015-07-08 00:00:00 Completed [facility] Influenza Virus Vaccine Quad IM 3+ YRS 2015-07-08 00:00:00 Completed [facility] HPV9 2015-07-08 00:00:00 Completed [facility] Influenza Virus Vaccine Quad IM 3+ YRS 2015-07-08 00:00:00 Completed [facility] HPV9 2015-07-08 00:00:00 Completed [facility] Influenza Virus Vaccine Quad IM 3+ YRS 2015-07-08 00:00:00 Completed [facility] HPV9 2015-07-08 00:00:00 Completed [facility] Influenza Virus Vaccine Quad IM 3+ YRS 2015-07-08 00:00:00 Completed [facility] HPV9 2015-07-08 00:00:00 Completed [facility] Influenza Virus Vaccine Quad IM 3+ YRS 2015-07-08 00:00:00 Completed [facility] HPV9 2015-07-08 00:00:00 Completed [facility] Influenza Virus Vaccine Quad IM 3+ YRS 2015-07-08 00:00:00 Completed [facility] HPV9 2015-07-08 00:00:00 Completed [facility] Influenza Virus Vaccine Quad IM 3+ YRS 2015-07-08 00:00:00 Completed [facility] HPV9 2015-07-08 00:00:00 Completed [facility] Influenza Virus Vaccine Quad IM 3+ YRS 2015-07-08 00:00:00 Completed [facility] HPV9 2015-07-08 00:00:00 Completed [facility] Influenza Virus Vaccine Quad IM 3+ YRS 2015-07-08 00:00:00 Completed [facility] HPV9 2015-07-08 00:00:00 Completed [facility] Influenza Virus Vaccine Quad IM 3+ YRS 2015-07-08 00:00:00 Completed [facility] HPV9 2015-07-08 00:00:00 Completed [facility] Influenza Virus Vaccine Quad IM 3+ YRS 2015-07-08 00:00:00 Completed [facility] HPV9 2015-07-08 00:00:00 Completed [facility] Influenza Virus Vaccine Quad IM 3+ YRS 2015-07-08 00:00:00 Completed [facility] HPV9 2015-07-08 00:00:00 Completed [facility] Influenza Virus Vaccine Quad IM 3+ YRS 2015-07-08 00:00:00 Completed [facility] HPV9 2015-07-08 00:00:00 Completed [facility] Influenza Virus Vaccine Quad IM 3+ YRS 2015-07-08 00:00:00 Completed [facility] HPV9 2015-07-08 00:00:00 Completed [facility] Influenza Virus Vaccine Quad IM 3+ YRS 2015-07-08 00:00:00 Completed [facility] HPV9 2015-07-08 00:00:00 Completed [facility] Influenza Virus Vaccine Quad IM 3+ YRS 2015-07-08 00:00:00 Completed [facility] HPV9 2015-07-08 00:00:00 Completed [facility] Influenza Virus Vaccine Quad IM 3+ YRS 2015-07-08 00:00:00 Completed [facility] HPV9 2015-07-08 00:00:00 Completed [facility] Influenza Virus Vaccine Quad IM 3+ YRS 2015-07-08 00:00:00 Completed [facility] HPV9 2015-07-08 00:00:00 Completed [facility] Influenza Virus Vaccine Quad IM 3+ YRS 2015-07-08 00:00:00 Completed [facility] HPV9 2015-07-08 00:00:00 Completed [facility] Influenza Virus Vaccine Quad IM 3+ YRS 2015-07-08 00:00:00 Completed [facility] HPV9 2015-07-08 00:00:00 Completed [facility] Influenza Virus Vaccine Quad IM 3+ YRS 2015-07-08 00:00:00 Completed [facility] HPV9 2015-07-08 00:00:00 Completed [facility] Influenza Virus Vaccine Quad IM 3+ YRS 2015-07-08 00:00:00 Completed [facility] HPV9 2015-07-08 00:00:00 Completed [facility] Influenza Virus Vaccine Quad IM 3+ YRS 2015-07-08 00:00:00 Completed [facility] HPV9 2015-07-08 00:00:00 Completed [facility] Influenza Virus Vaccine Quad IM 3+ YRS 2015-07-08 00:00:00 Completed [facility] HPV9 2015-07-08 00:00:00 Completed [facility] Influenza Virus Vaccine Quad IM 3+ YRS 2015-07-08 00:00:00 Completed [facility] HPV9 2015-07-08 00:00:00 Completed [facility] Influenza Virus Vaccine Quad IM 3+ YRS 2015-07-08 00:00:00 Completed [facility] HPV9 2015-07-08 00:00:00 Completed [facility] Influenza Virus Vaccine Quad IM 3+ YRS 2015-07-08 00:00:00 Completed [facility] HPV9 2015-07-08 00:00:00 Completed [facility] Influenza Virus Vaccine Quad IM 3+ YRS 2015-07-08 00:00:00 Completed [facility] HPV9 2015-07-08 00:00:00 Completed [facility] Influenza Virus Vaccine Quad IM 3+ YRS 2015-07-08 00:00:00 Completed [facility] HPV9 2015-07-08 00:00:00 Completed [facility] Influenza Virus Vaccine Quad IM 3+ YRS 2015-07-08 00:00:00 Completed [facility] HPV9 2015-07-08 00:00:00 Completed [facility] Influenza Virus Vaccine Quad IM 3+ YRS 2015-07-08 00:00:00 Completed [facility] HPV9 2015-07-08 00:00:00 Completed [facility] Influenza Virus Vaccine Quad IM 3+ YRS 2015-07-08 00:00:00 Completed [facility] HPV9 2015-07-08 00:00:00 Completed [facility] Influenza Virus Vaccine Quad IM 3+ YRS 2015-07-08 00:00:00 Completed [facility] HPV9 2015-07-08 00:00:00 Completed [facility] Influenza Virus Vaccine Quad IM 3+ YRS 2015-07-08 00:00:00 Completed [facility] HPV9 2015-07-08 00:00:00 Completed [facility] Influenza Virus Vaccine Quad IM 3+ YRS 2015-07-08 00:00:00 Completed [facility] HPV9 2015-07-08 00:00:00 Completed [facility] Influenza Virus Vaccine Quad IM 3+ YRS 2015-07-08 00:00:00 Completed [facility] HPV9 2015-07-08 00:00:00 Completed [facility] Influenza Virus Vaccine Quad IM 3+ YRS 2015-07-08 00:00:00 Completed [facility] HPV9 2015-07-08 00:00:00 Completed [facility] Influenza Virus Vaccine Quad IM 3+ YRS 2015-07-08 00:00:00 Completed [facility] HPV9 2015-07-08 00:00:00 Completed [facility] Influenza Virus Vaccine Quad IM 3+ YRS 2015-07-08 00:00:00 Completed [facility] HPV9 2015-07-08 00:00:00 Completed [facility] Influenza Virus Vaccine Quad IM 3+ YRS 2015-07-08 00:00:00 Completed [facility] HPV9 2015-07-08 00:00:00 Completed [facility] Influenza Virus Vaccine Quad IM 3+ YRS 2015-07-08 00:00:00 Completed [facility] HPV9 2015-07-08 00:00:00 Completed [facility] Influenza Virus Vaccine Quad IM 3+ YRS 2015-07-08 00:00:00 Completed [facility] HPV9 2015-07-08 00:00:00 Completed [facility] Influenza Virus Vaccine Quad IM 3+ YRS 2015-07-08 00:00:00 Completed [facility] HPV9 2015-07-08 00:00:00 Completed [facility] Influenza Virus Vaccine Quad IM 3+ YRS 2015-07-08 00:00:00 Completed [facility] HPV9 2015-07-08 00:00:00 Completed [facility] Influenza Virus Vaccine Quad IM 3+ YRS 2015-07-08 00:00:00 Completed [facility] HPV9 2015-07-08 00:00:00 Completed [facility] Influenza Virus Vaccine Quad IM 3+ YRS 2015-07-08 00:00:00 Completed [facility] HPV9 2015-07-08 00:00:00 Completed [facility] Influenza Virus Vaccine Quad IM 3+ YRS 2015-07-08 00:00:00 Completed [facility] HPV9 2015-07-08 00:00:00 Completed [facility] Influenza Virus Vaccine Quad IM 3+ YRS 2015-07-08 00:00:00 Completed [facility] HPV9 2015-07-08 00:00:00 Completed [facility] Influenza Virus Vaccine Quad IM 3+ YRS 2015-07-08 00:00:00 Completed [facility] HPV9 2015-07-08 00:00:00 Completed [facility] Influenza Virus Vaccine Quad IM 3+ YRS 2015-07-08 00:00:00 Completed [facility] HPV9 2015-07-08 00:00:00 Completed [facility] Influenza Virus Vaccine Quad IM 3+ YRS 2015-07-08 00:00:00 Completed [facility] HPV9 2015-07-08 00:00:00 Completed [facility] Influenza Virus Vaccine Quad IM 3+ YRS 2015-07-08 00:00:00 Completed [facility] HPV9 2015-07-08 00:00:00 Completed [facility] Influenza Virus Vaccine Quad IM 3+ YRS 2015-07-08 00:00:00 Completed [facility] HPV9 2015-07-08 00:00:00 Completed [facility] Influenza Virus Vaccine Quad IM 3+ YRS 2015-07-08 00:00:00 Completed [facility] HPV9 2015-07-08 00:00:00 Completed [facility] Influenza Virus Vaccine Quad IM 3+ YRS 2015-07-08 00:00:00 Completed [facility] HPV9 2015-07-08 00:00:00 Completed [facility] Influenza Virus Vaccine Quad IM 3+ YRS 2015-07-08 00:00:00 Completed [facility] HPV9 2015-07-08 00:00:00 Completed [facility] Influenza Virus Vaccine Quad IM 3+ YRS 2015-07-08 00:00:00 Completed [facility] HPV9 2015-07-08 00:00:00 Completed [facility] Influenza Virus Vaccine Quad IM 3+ YRS 2015-07-08 00:00:00 Completed [facility] HPV9 2015-07-08 00:00:00 Completed [facility] Influenza Virus Vaccine Quad IM 3+ YRS 2015-07-08 00:00:00 Completed [facility] HPV9 2015-07-08 00:00:00 Completed [facility] Influenza Virus Vaccine Quad IM 3+ YRS 2015-07-08 00:00:00 Completed [facility] HPV9 2015-07-08 00:00:00 Completed [facility] Influenza Virus Vaccine Quad IM 3+ YRS 2015-07-08 00:00:00 Completed [facility] HPV9 2015-07-08 00:00:00 Completed [facility] Influenza Virus Vaccine Quad IM 3+ YRS 2015-07-08 00:00:00 Completed [facility] HPV9 2015-07-08 00:00:00 Completed [facility] Influenza Virus Vaccine Quad IM 3+ YRS 2015-07-08 00:00:00 Completed [facility] HPV9 2015-07-08 00:00:00 Completed [facility] Influenza Virus Vaccine Quad IM 3+ YRS 2015-07-08 00:00:00 Completed [facility] HPV9 2015-07-08 00:00:00 Completed [facility] Influenza Virus Vaccine Quad IM 3+ YRS 2015-07-08 00:00:00 Completed [facility] HPV9 2015-07-08 00:00:00 Completed [facility] Influenza Virus Vaccine Quad IM 3+ YRS 2015-07-08 00:00:00 Completed [facility] HPV9 2015-07-08 00:00:00 Completed [facility] Influenza Virus Vaccine Quad IM 3+ YRS 2015-07-08 00:00:00 Completed [facility] HPV9 2015-07-08 00:00:00 Completed [facility] Influenza Virus Vaccine Quad IM 3+ YRS 2015-07-08 00:00:00 Completed [facility] HPV9 2015-07-08 00:00:00 Completed [facility] Influenza Virus Vaccine Quad IM 3+ YRS 2015-07-08 00:00:00 Completed [facility] HPV9 2015-07-08 00:00:00 Completed [facility] Influenza Virus Vaccine Quad IM 3+ YRS 2015-07-08 00:00:00 Completed [facility] HPV9 2015-07-08 00:00:00 Completed [facility] Influenza Virus Vaccine Quad IM 3+ YRS 2015-07-08 00:00:00 Completed [facility] HPV9 2015-07-08 00:00:00 Completed [facility] Influenza Virus Vaccine Quad IM 3+ YRS 2015-07-08 00:00:00 Completed [facility] HPV9 2015-07-08 00:00:00 Completed [facility] Influenza Virus Vaccine Quad IM 3+ YRS 2015-07-08 00:00:00 Completed [facility] HPV9 2015-07-08 00:00:00 Completed [facility] Influenza Virus Vaccine Quad IM 3+ YRS 2015-07-08 00:00:00 Completed [facility] HPV9 2015-07-08 00:00:00 Completed [facility] Influenza Virus Vaccine Quad IM 3+ YRS 2015-07-08 00:00:00 Completed [facility] HPV9 2015-07-08 00:00:00 Completed [facility] Influenza Virus Vaccine Quad IM 3+ YRS 2015-07-08 00:00:00 Completed [facility] HPV9 2015-07-08 00:00:00 Completed [facility] Influenza Virus Vaccine Quad IM 3+ YRS 2015-07-08 00:00:00 Completed [facility] HPV9 2015-07-08 00:00:00 Completed [facility] Influenza Virus Vaccine Quad IM 3+ YRS 2015-07-08 00:00:00 Completed [facility] HPV9 2015-07-08 00:00:00 Completed [facility] Influenza Virus Vaccine (3+ yrs) 2014-04-02 00:00:00 Completed [facility] Influenza Virus Vaccine (3+ yrs) 2014-04-02 00:00:00 Completed [facility] Influenza Virus Vaccine (3+ yrs) 2014-04-02 00:00:00 Completed [facility] Influenza Virus Vaccine (3+ yrs) 2014-04-02 00:00:00 Completed [facility] Influenza Virus Vaccine (3+ yrs) 2014-04-02 00:00:00 Completed [facility] Influenza Virus Vaccine (3+ yrs) 2014-04-02 00:00:00 Completed [facility] Influenza Virus Vaccine (3+ yrs) 2014-04-02 00:00:00 Completed [facility] Influenza Virus Vaccine (3+ yrs) 2014-04-02 00:00:00 Completed [facility] Influenza Virus Vaccine (3+ yrs) 2014-04-02 00:00:00 Completed [facility] Influenza Virus Vaccine (3+ yrs) 2014-04-02 00:00:00 Completed [facility] Influenza Virus Vaccine (3+ yrs) 2014-04-02 00:00:00 Completed [facility] Influenza Virus Vaccine (3+ yrs) 2014-04-02 00:00:00 Completed [facility] Influenza Virus Vaccine (3+ yrs) 2014-04-02 00:00:00 Completed [facility] Influenza Virus Vaccine (3+ yrs) 2014-04-02 00:00:00 Completed [facility] Influenza Virus Vaccine (3+ yrs) 2014-04-02 00:00:00 Completed [facility] Influenza Virus Vaccine (3+ yrs) 2014-04-02 00:00:00 Completed [facility] Influenza Virus Vaccine (3+ yrs) 2014-04-02 00:00:00 Completed [facility] Influenza Virus Vaccine (3+ yrs) 2014-04-02 00:00:00 Completed [facility] Influenza Virus Vaccine (3+ yrs) 2014-04-02 00:00:00 Completed [facility] Influenza Virus Vaccine (3+ yrs) 2014-04-02 00:00:00 Completed [facility] Influenza Virus Vaccine (3+ yrs) 2014-04-02 00:00:00 Completed [facility] Influenza Virus Vaccine (3+ yrs) 2014-04-02 00:00:00 Completed [facility] Influenza Virus Vaccine (3+ yrs) 2014-04-02 00:00:00 Completed [facility] Influenza Virus Vaccine (3+ yrs) 2014-04-02 00:00:00 Completed [facility] Influenza Virus Vaccine (3+ yrs) 2014-04-02 00:00:00 Completed [facility] Influenza Virus Vaccine (3+ yrs) 2014-04-02 00:00:00 Completed [facility] Influenza Virus Vaccine (3+ yrs) 2014-04-02 00:00:00 Completed [facility] Influenza Virus Vaccine (3+ yrs) 2014-04-02 00:00:00 Completed [facility] Influenza Virus Vaccine (3+ yrs) 2014-04-02 00:00:00 Completed [facility] Influenza Virus Vaccine (3+ yrs) 2014-04-02 00:00:00 Completed [facility] Influenza Virus Vaccine (3+ yrs) 2014-04-02 00:00:00 Completed [facility] Influenza Virus Vaccine (3+ yrs) 2014-04-02 00:00:00 Completed [facility] Influenza Virus Vaccine (3+ yrs) 2014-04-02 00:00:00 Completed [facility] Influenza Virus Vaccine (3+ yrs) 2014-04-02 00:00:00 Completed [facility] Influenza Virus Vaccine (3+ yrs) 2014-04-02 00:00:00 Completed [facility] Influenza Virus Vaccine (3+ yrs) 2014-04-02 00:00:00 Completed [facility] Influenza Virus Vaccine (3+ yrs) 2014-04-02 00:00:00 Completed [facility] Influenza Virus Vaccine (3+ yrs) 2014-04-02 00:00:00 Completed [facility] Influenza Virus Vaccine (3+ yrs) 2014-04-02 00:00:00 Completed [facility] Influenza Virus Vaccine (3+ yrs) 2014-04-02 00:00:00 Completed [facility] Influenza Virus Vaccine (3+ yrs) 2014-04-02 00:00:00 Completed [facility] Influenza Virus Vaccine (3+ yrs) 2014-04-02 00:00:00 Completed [facility] Influenza Virus Vaccine (3+ yrs) 2014-04-02 00:00:00 Completed [facility] Influenza Virus Vaccine (3+ yrs) 2014-04-02 00:00:00 Completed [facility] Influenza Virus Vaccine (3+ yrs) 2014-04-02 00:00:00 Completed [facility] Influenza Virus Vaccine (3+ yrs) 2014-04-02 00:00:00 Completed [facility] Influenza Virus Vaccine (3+ yrs) 2014-04-02 00:00:00 Completed [facility] Influenza Virus Vaccine (3+ yrs) 2014-04-02 00:00:00 Completed [facility] Influenza Virus Vaccine (3+ yrs) 2014-04-02 00:00:00 Completed [facility] Influenza Virus Vaccine (3+ yrs) 2014-04-02 00:00:00 Completed [facility] Influenza Virus Vaccine (3+ yrs) 2014-04-02 00:00:00 Completed [facility] Influenza Virus Vaccine (3+ yrs) 2014-04-02 00:00:00 Completed [facility] Influenza Virus Vaccine (3+ yrs) 2014-04-02 00:00:00 Completed [facility] Influenza Virus Vaccine (3+ yrs) 2014-04-02 00:00:00 Completed [facility] Influenza Virus Vaccine (3+ yrs) 2014-04-02 00:00:00 Completed [facility] Influenza Virus Vaccine (3+ yrs) 2014-04-02 00:00:00 Completed [facility] Influenza Virus Vaccine (3+ yrs) 2014-04-02 00:00:00 Completed [facility] Influenza Virus Vaccine (3+ yrs) 2014-04-02 00:00:00 Completed [facility] Influenza Virus Vaccine (3+ yrs) 2014-04-02 00:00:00 Completed [facility] Influenza Virus Vaccine (3+ yrs) 2014-04-02 00:00:00 Completed [facility] Influenza Virus Vaccine (3+ yrs) 2014-04-02 00:00:00 Completed [facility] Influenza Virus Vaccine (3+ yrs) 2014-04-02 00:00:00 Completed [facility] Influenza Virus Vaccine (3+ yrs) 2014-04-02 00:00:00 Completed [facility] Influenza Virus Vaccine (3+ yrs) 2014-04-02 00:00:00 Completed [facility] Influenza Virus Vaccine (3+ yrs) 2014-04-02 00:00:00 Completed [facility] Influenza Virus Vaccine (3+ yrs) 2014-04-02 00:00:00 Completed [facility] Influenza Virus Vaccine (3+ yrs) 2014-04-02 00:00:00 Completed [facility] Influenza Virus Vaccine (3+ yrs) 2014-04-02 00:00:00 Completed [facility] Influenza Virus Vaccine (3+ yrs) 2014-04-02 00:00:00 Completed [facility] Influenza Virus Vaccine (3+ yrs) 2014-04-02 00:00:00 Completed [facility] Influenza Virus Vaccine (3+ yrs) 2014-04-02 00:00:00 Completed [facility] Influenza Virus Vaccine (3+ yrs) 2014-04-02 00:00:00 Completed [facility] Influenza Virus Vaccine (3+ yrs) 2014-04-02 00:00:00 Completed [facility] Influenza Virus Vaccine (3+ yrs) 2014-04-02 00:00:00 Completed [facility] Influenza Virus Vaccine (3+ yrs) 2014-04-02 00:00:00 Completed [facility] Influenza Virus Vaccine (3+ yrs) 2014-04-02 00:00:00 Completed [facility] Influenza Virus Vaccine (3+ yrs) 2014-04-02 00:00:00 Completed [facility] Influenza Virus Vaccine (3+ yrs) 2014-04-02 00:00:00 Completed [facility] Influenza Virus Vaccine (3+ yrs) 2014-04-02 00:00:00 Completed [facility] Influenza Virus Vaccine (3+ yrs) 2014-04-02 00:00:00 Completed [facility] Influenza Virus Vaccine (3+ yrs) 2014-04-02 00:00:00 Completed [facility] Influenza Virus Vaccine (3+ yrs) 2014-04-02 00:00:00 Completed [facility] Influenza Virus Vaccine (3+ yrs) 2014-04-02 00:00:00 Completed [facility] Influenza Virus Vaccine (3+ yrs) 2014-04-02 00:00:00 Completed [facility] Influenza Virus Vaccine (3+ yrs) 2014-04-02 00:00:00 Completed [facility] Influenza Virus Vaccine (3+ yrs) 2014-04-02 00:00:00 Completed [facility] Influenza Virus Vaccine (3+ yrs) 2014-04-02 00:00:00 Completed [facility] Influenza Virus Vaccine (3+ yrs) 2014-04-02 00:00:00 Completed [facility] Influenza Virus Vaccine (3+ yrs) 2014-04-02 00:00:00 Completed [facility] Influenza Virus Vaccine (3+ yrs) 2014-04-02 00:00:00 Completed [facility] Influenza Virus Vaccine (3+ yrs) 2014-04-02 00:00:00 Completed [facility] Influenza Virus Vaccine (3+ yrs) 2014-04-02 00:00:00 Completed [facility] Influenza Virus Vaccine (3+ yrs) 2014-04-02 00:00:00 Completed [facility] Influenza Virus Vaccine (3+ yrs) 2014-04-02 00:00:00 Completed [facility] Influenza Virus Vaccine (3+ yrs) 2014-04-02 00:00:00 Completed [facility] Influenza Virus Vaccine (3+ yrs) 2014-04-02 00:00:00 Completed [facility] Influenza Virus Vaccine (3+ yrs) 2014-04-02 00:00:00 Completed [facility] Influenza Virus Vaccine (3+ yrs) 2014-04-02 00:00:00 Completed [facility] Influenza Virus Vaccine (3+ yrs) 2014-04-02 00:00:00 Completed [facility] Influenza Virus Vaccine (3+ yrs) 2014-04-02 00:00:00 Completed [facility] Influenza Virus Vaccine (3+ yrs) 2014-04-02 00:00:00 Completed [facility] Influenza Virus Vaccine (3+ yrs) 2014-04-02 00:00:00 Completed [facility] Influenza Virus Vaccine (3+ yrs) 2014-04-02 00:00:00 Completed [facility] Influenza Virus Vaccine (3+ yrs) 2014-04-02 00:00:00 Completed [facility] Influenza Virus Vaccine (3+ yrs) 2014-04-02 00:00:00 Completed [facility] Influenza Virus Vaccine (3+ yrs) 2013-05-22 00:00:00 Completed [facility] Meningococcal Polysaccharide (groups A, C, Y and W-135) conjugate vaccine (MCV4P) 2013-05-22 00:00:00 Completed [facility] TDAP 2013-05-22 00:00:00 Completed [facility] Influenza Virus Vaccine (3+ yrs) 2013-05-22 00:00:00 Completed [facility] Meningococcal Polysaccharide (groups A, C, Y and W-135) conjugate vaccine (MCV4P) 2013-05-22 00:00:00 Completed [facility] TDAP 2013-05-22 00:00:00 Completed [facility] Influenza Virus Vaccine (3+ yrs) 2013-05-22 00:00:00 Completed [facility] Meningococcal Polysaccharide (groups A, C, Y and W-135) conjugate vaccine (MCV4P) 2013-05-22 00:00:00 Completed [facility] TDAP 2013-05-22 00:00:00 Completed [facility] Influenza Virus Vaccine (3+ yrs) 2013-05-22 00:00:00 Completed [facility] Meningococcal Polysaccharide (groups A, C, Y and W-135) conjugate vaccine (MCV4P) 2013-05-22 00:00:00 Completed [facility] TDAP 2013-05-22 00:00:00 Completed [facility] Influenza Virus Vaccine (3+ yrs) 2013-05-22 00:00:00 Completed [facility] Meningococcal Polysaccharide (groups A, C, Y and W-135) conjugate vaccine (MCV4P) 2013-05-22 00:00:00 Completed [facility] TDAP 2013-05-22 00:00:00 Completed [facility] Influenza Virus Vaccine (3+ yrs) 2013-05-22 00:00:00 Completed [facility] Meningococcal Polysaccharide (groups A, C, Y and W-135) conjugate vaccine (MCV4P) 2013-05-22 00:00:00 Completed [facility] TDAP 2013-05-22 00:00:00 Completed [facility] Influenza Virus Vaccine (3+ yrs) 2013-05-22 00:00:00 Completed [facility] Meningococcal Polysaccharide (groups A, C, Y and W-135) conjugate vaccine (MCV4P) 2013-05-22 00:00:00 Completed [facility] TDAP 2013-05-22 00:00:00 Completed [facility] Influenza Virus Vaccine (3+ yrs) 2013-05-22 00:00:00 Completed [facility] Meningococcal Polysaccharide (groups A, C, Y and W-135) conjugate vaccine (MCV4P) 2013-05-22 00:00:00 Completed [facility] TDAP 2013-05-22 00:00:00 Completed [facility] Influenza Virus Vaccine (3+ yrs) 2013-05-22 00:00:00 Completed [facility] Meningococcal Polysaccharide (groups A, C, Y and W-135) conjugate vaccine (MCV4P) 2013-05-22 00:00:00 Completed [facility] TDAP 2013-05-22 00:00:00 Completed [facility] Influenza Virus Vaccine (3+ yrs) 2013-05-22 00:00:00 Completed [facility] Meningococcal Polysaccharide (groups A, C, Y and W-135) conjugate vaccine (MCV4P) 2013-05-22 00:00:00 Completed [facility] TDAP 2013-05-22 00:00:00 Completed [facility] Influenza Virus Vaccine (3+ yrs) 2013-05-22 00:00:00 Completed [facility] Meningococcal Polysaccharide (groups A, C, Y and W-135) conjugate vaccine (MCV4P) 2013-05-22 00:00:00 Completed [facility] TDAP 2013-05-22 00:00:00 Completed [facility] Influenza Virus Vaccine (3+ yrs) 2013-05-22 00:00:00 Completed [facility] Meningococcal Polysaccharide (groups A, C, Y and W-135) conjugate vaccine (MCV4P) 2013-05-22 00:00:00 Completed [facility] TDAP 2013-05-22 00:00:00 Completed [facility] Influenza Virus Vaccine (3+ yrs) 2013-05-22 00:00:00 Completed [facility] Meningococcal Polysaccharide (groups A, C, Y and W-135) conjugate vaccine (MCV4P) 2013-05-22 00:00:00 Completed [facility] TDAP 2013-05-22 00:00:00 Completed [facility] Influenza Virus Vaccine (3+ yrs) 2013-05-22 00:00:00 Completed [facility] Meningococcal Polysaccharide (groups A, C, Y and W-135) conjugate vaccine (MCV4P) 2013-05-22 00:00:00 Completed [facility] TDAP 2013-05-22 00:00:00 Completed [facility] Influenza Virus Vaccine (3+ yrs) 2013-05-22 00:00:00 Completed [facility] Meningococcal Polysaccharide (groups A, C, Y and W-135) conjugate vaccine (MCV4P) 2013-05-22 00:00:00 Completed [facility] TDAP 2013-05-22 00:00:00 Completed [facility] Influenza Virus Vaccine (3+ yrs) 2013-05-22 00:00:00 Completed [facility] Meningococcal Polysaccharide (groups A, C, Y and W-135) conjugate vaccine (MCV4P) 2013-05-22 00:00:00 Completed [facility] TDAP 2013-05-22 00:00:00 Completed [facility] Influenza Virus Vaccine (3+ yrs) 2013-05-22 00:00:00 Completed [facility] Meningococcal Polysaccharide (groups A, C, Y and W-135) conjugate vaccine (MCV4P) 2013-05-22 00:00:00 Completed [facility] TDAP 2013-05-22 00:00:00 Completed [facility] Influenza Virus Vaccine (3+ yrs) 2013-05-22 00:00:00 Completed [facility] Meningococcal Polysaccharide (groups A, C, Y and W-135) conjugate vaccine (MCV4P) 2013-05-22 00:00:00 Completed [facility] TDAP 2013-05-22 00:00:00 Completed [facility] Influenza Virus Vaccine (3+ yrs) 2013-05-22 00:00:00 Completed [facility] Meningococcal Polysaccharide (groups A, C, Y and W-135) conjugate vaccine (MCV4P) 2013-05-22 00:00:00 Completed [facility] TDAP 2013-05-22 00:00:00 Completed [facility] Influenza Virus Vaccine (3+ yrs) 2013-05-22 00:00:00 Completed [facility] Meningococcal Polysaccharide (groups A, C, Y and W-135) conjugate vaccine (MCV4P) 2013-05-22 00:00:00 Completed [facility] TDAP 2013-05-22 00:00:00 Completed [facility] Influenza Virus Vaccine (3+ yrs) 2013-05-22 00:00:00 Completed [facility] Meningococcal Polysaccharide (groups A, C, Y and W-135) conjugate vaccine (MCV4P) 2013-05-22 00:00:00 Completed [facility] TDAP 2013-05-22 00:00:00 Completed [facility] Influenza Virus Vaccine (3+ yrs) 2013-05-22 00:00:00 Completed [facility] Meningococcal Polysaccharide (groups A, C, Y and W-135) conjugate vaccine (MCV4P) 2013-05-22 00:00:00 Completed [facility] TDAP 2013-05-22 00:00:00 Completed [facility] Influenza Virus Vaccine (3+ yrs) 2013-05-22 00:00:00 Completed [facility] Meningococcal Polysaccharide (groups A, C, Y and W-135) conjugate vaccine (MCV4P) 2013-05-22 00:00:00 Completed [facility] TDAP 2013-05-22 00:00:00 Completed [facility] Influenza Virus Vaccine (3+ yrs) 2013-05-22 00:00:00 Completed [facility] Meningococcal Polysaccharide (groups A, C, Y and W-135) conjugate vaccine (MCV4P) 2013-05-22 00:00:00 Completed [facility] TDAP 2013-05-22 00:00:00 Completed [facility] Influenza Virus Vaccine (3+ yrs) 2013-05-22 00:00:00 Completed [facility] Meningococcal Polysaccharide (groups A, C, Y and W-135) conjugate vaccine (MCV4P) 2013-05-22 00:00:00 Completed [facility] TDAP 2013-05-22 00:00:00 Completed [facility] Influenza Virus Vaccine (3+ yrs) 2013-05-22 00:00:00 Completed [facility] Meningococcal Polysaccharide (groups A, C, Y and W-135) conjugate vaccine (MCV4P) 2013-05-22 00:00:00 Completed [facility] TDAP 2013-05-22 00:00:00 Completed [facility] Influenza Virus Vaccine (3+ yrs) 2013-05-22 00:00:00 Completed [facility] Meningococcal Polysaccharide (groups A, C, Y and W-135) conjugate vaccine (MCV4P) 2013-05-22 00:00:00 Completed [facility] TDAP 2013-05-22 00:00:00 Completed [facility] Influenza Virus Vaccine (3+ yrs) 2013-05-22 00:00:00 Completed [facility] Meningococcal Polysaccharide (groups A, C, Y and W-135) conjugate vaccine (MCV4P) 2013-05-22 00:00:00 Completed [facility] TDAP 2013-05-22 00:00:00 Completed [facility] Influenza Virus Vaccine (3+ yrs) 2013-05-22 00:00:00 Completed [facility] Meningococcal Polysaccharide (groups A, C, Y and W-135) conjugate vaccine (MCV4P) 2013-05-22 00:00:00 Completed [facility] TDAP 2013-05-22 00:00:00 Completed [facility] Influenza Virus Vaccine (3+ yrs) 2013-05-22 00:00:00 Completed [facility] Meningococcal Polysaccharide (groups A, C, Y and W-135) conjugate vaccine (MCV4P) 2013-05-22 00:00:00 Completed [facility] TDAP 2013-05-22 00:00:00 Completed [facility] Influenza Virus Vaccine (3+ yrs) 2013-05-22 00:00:00 Completed [facility] Meningococcal Polysaccharide (groups A, C, Y and W-135) conjugate vaccine (MCV4P) 2013-05-22 00:00:00 Completed [facility] TDAP 2013-05-22 00:00:00 Completed [facility] Influenza Virus Vaccine (3+ yrs) 2013-05-22 00:00:00 Completed [facility] Meningococcal Polysaccharide (groups A, C, Y and W-135) conjugate vaccine (MCV4P) 2013-05-22 00:00:00 Completed [facility] TDAP 2013-05-22 00:00:00 Completed [facility] Influenza Virus Vaccine (3+ yrs) 2013-05-22 00:00:00 Completed [facility] Meningococcal Polysaccharide (groups A, C, Y and W-135) conjugate vaccine (MCV4P) 2013-05-22 00:00:00 Completed [facility] TDAP 2013-05-22 00:00:00 Completed [facility] Influenza Virus Vaccine (3+ yrs) 2013-05-22 00:00:00 Completed [facility] Meningococcal Polysaccharide (groups A, C, Y and W-135) conjugate vaccine (MCV4P) 2013-05-22 00:00:00 Completed [facility] TDAP 2013-05-22 00:00:00 Completed [facility] Influenza Virus Vaccine (3+ yrs) 2013-05-22 00:00:00 Completed [facility] Meningococcal Polysaccharide (groups A, C, Y and W-135) conjugate vaccine (MCV4P) 2013-05-22 00:00:00 Completed [facility] TDAP 2013-05-22 00:00:00 Completed [facility] Influenza Virus Vaccine (3+ yrs) 2013-05-22 00:00:00 Completed [facility] Meningococcal Polysaccharide (groups A, C, Y and W-135) conjugate vaccine (MCV4P) 2013-05-22 00:00:00 Completed [facility] TDAP 2013-05-22 00:00:00 Completed [facility] Influenza Virus Vaccine (3+ yrs) 2013-05-22 00:00:00 Completed [facility] Meningococcal Polysaccharide (groups A, C, Y and W-135) conjugate vaccine (MCV4P) 2013-05-22 00:00:00 Completed [facility] TDAP 2013-05-22 00:00:00 Completed [facility] Influenza Virus Vaccine (3+ yrs) 2013-05-22 00:00:00 Completed [facility] Meningococcal Polysaccharide (groups A, C, Y and W-135) conjugate vaccine (MCV4P) 2013-05-22 00:00:00 Completed [facility] TDAP 2013-05-22 00:00:00 Completed [facility] Influenza Virus Vaccine (3+ yrs) 2013-05-22 00:00:00 Completed [facility] Meningococcal Polysaccharide (groups A, C, Y and W-135) conjugate vaccine (MCV4P) 2013-05-22 00:00:00 Completed [facility] TDAP 2013-05-22 00:00:00 Completed [facility] Influenza Virus Vaccine (3+ yrs) 2013-05-22 00:00:00 Completed [facility] Meningococcal Polysaccharide (groups A, C, Y and W-135) conjugate vaccine (MCV4P) 2013-05-22 00:00:00 Completed [facility] TDAP 2013-05-22 00:00:00 Completed [facility] Influenza Virus Vaccine (3+ yrs) 2013-05-22 00:00:00 Completed [facility] Meningococcal Polysaccharide (groups A, C, Y and W-135) conjugate vaccine (MCV4P) 2013-05-22 00:00:00 Completed [facility] TDAP 2013-05-22 00:00:00 Completed [facility] Influenza Virus Vaccine (3+ yrs) 2013-05-22 00:00:00 Completed [facility] Meningococcal Polysaccharide (groups A, C, Y and W-135) conjugate vaccine (MCV4P) 2013-05-22 00:00:00 Completed [facility] TDAP 2013-05-22 00:00:00 Completed [facility] Influenza Virus Vaccine (3+ yrs) 2013-05-22 00:00:00 Completed [facility] Meningococcal Polysaccharide (groups A, C, Y and W-135) conjugate vaccine (MCV4P) 2013-05-22 00:00:00 Completed [facility] TDAP 2013-05-22 00:00:00 Completed [facility] Influenza Virus Vaccine (3+ yrs) 2013-05-22 00:00:00 Completed [facility] Meningococcal Polysaccharide (groups A, C, Y and W-135) conjugate vaccine (MCV4P) 2013-05-22 00:00:00 Completed [facility] TDAP 2013-05-22 00:00:00 Completed [facility] Influenza Virus Vaccine (3+ yrs) 2013-05-22 00:00:00 Completed [facility] Meningococcal Polysaccharide (groups A, C, Y and W-135) conjugate vaccine (MCV4P) 2013-05-22 00:00:00 Completed [facility] TDAP 2013-05-22 00:00:00 Completed [facility] Influenza Virus Vaccine (3+ yrs) 2013-05-22 00:00:00 Completed [facility] Meningococcal Polysaccharide (groups A, C, Y and W-135) conjugate vaccine (MCV4P) 2013-05-22 00:00:00 Completed [facility] TDAP 2013-05-22 00:00:00 Completed [facility] Influenza Virus Vaccine (3+ yrs) 2013-05-22 00:00:00 Completed [facility] Meningococcal Polysaccharide (groups A, C, Y and W-135) conjugate vaccine (MCV4P) 2013-05-22 00:00:00 Completed [facility] TDAP 2013-05-22 00:00:00 Completed [facility] Influenza Virus Vaccine (3+ yrs) 2013-05-22 00:00:00 Completed [facility] Meningococcal Polysaccharide (groups A, C, Y and W-135) conjugate vaccine (MCV4P) 2013-05-22 00:00:00 Completed [facility] TDAP 2013-05-22 00:00:00 Completed [facility] Influenza Virus Vaccine (3+ yrs) 2013-05-22 00:00:00 Completed [facility] Meningococcal Polysaccharide (groups A, C, Y and W-135) conjugate vaccine (MCV4P) 2013-05-22 00:00:00 Completed [facility] TDAP 2013-05-22 00:00:00 Completed [facility] Influenza Virus Vaccine (3+ yrs) 2013-05-22 00:00:00 Completed [facility] Meningococcal Polysaccharide (groups A, C, Y and W-135) conjugate vaccine (MCV4P) 2013-05-22 00:00:00 Completed [facility] TDAP 2013-05-22 00:00:00 Completed [facility] Influenza Virus Vaccine (3+ yrs) 2013-05-22 00:00:00 Completed [facility] Meningococcal Polysaccharide (groups A, C, Y and W-135) conjugate vaccine (MCV4P) 2013-05-22 00:00:00 Completed [facility] TDAP 2013-05-22 00:00:00 Completed [facility] Influenza Virus Vaccine (3+ yrs) 2013-05-22 00:00:00 Completed [facility] Meningococcal Polysaccharide (groups A, C, Y and W-135) conjugate vaccine (MCV4P) 2013-05-22 00:00:00 Completed [facility] TDAP 2013-05-22 00:00:00 Completed [facility] Influenza Virus Vaccine (3+ yrs) 2013-05-22 00:00:00 Completed [facility] Meningococcal Polysaccharide (groups A, C, Y and W-135) conjugate vaccine (MCV4P) 2013-05-22 00:00:00 Completed [facility] TDAP 2013-05-22 00:00:00 Completed [facility] Influenza Virus Vaccine (3+ yrs) 2013-05-22 00:00:00 Completed [facility] Meningococcal Polysaccharide (groups A, C, Y and W-135) conjugate vaccine (MCV4P) 2013-05-22 00:00:00 Completed [facility] TDAP 2013-05-22 00:00:00 Completed [facility] Influenza Virus Vaccine (3+ yrs) 2013-05-22 00:00:00 Completed [facility] Meningococcal Polysaccharide (groups A, C, Y and W-135) conjugate vaccine (MCV4P) 2013-05-22 00:00:00 Completed [facility] TDAP 2013-05-22 00:00:00 Completed [facility] Influenza Virus Vaccine (3+ yrs) 2013-05-22 00:00:00 Completed [facility] Meningococcal Polysaccharide (groups A, C, Y and W-135) conjugate vaccine (MCV4P) 2013-05-22 00:00:00 Completed [facility] TDAP 2013-05-22 00:00:00 Completed [facility] Influenza Virus Vaccine (3+ yrs) 2013-05-22 00:00:00 Completed [facility] Meningococcal Polysaccharide (groups A, C, Y and W-135) conjugate vaccine (MCV4P) 2013-05-22 00:00:00 Completed [facility] TDAP 2013-05-22 00:00:00 Completed [facility] Influenza Virus Vaccine (3+ yrs) 2013-05-22 00:00:00 Completed [facility] Meningococcal Polysaccharide (groups A, C, Y and W-135) conjugate vaccine (MCV4P) 2013-05-22 00:00:00 Completed [facility] TDAP 2013-05-22 00:00:00 Completed [facility] Influenza Virus Vaccine (3+ yrs) 2013-05-22 00:00:00 Completed [facility] Meningococcal Polysaccharide (groups A, C, Y and W-135) conjugate vaccine (MCV4P) 2013-05-22 00:00:00 Completed [facility] TDAP 2013-05-22 00:00:00 Completed [facility] Influenza Virus Vaccine (3+ yrs) 2013-05-22 00:00:00 Completed [facility] Meningococcal Polysaccharide (groups A, C, Y and W-135) conjugate vaccine (MCV4P) 2013-05-22 00:00:00 Completed [facility] TDAP 2013-05-22 00:00:00 Completed [facility] Influenza Virus Vaccine (3+ yrs) 2013-05-22 00:00:00 Completed [facility] Meningococcal Polysaccharide (groups A, C, Y and W-135) conjugate vaccine (MCV4P) 2013-05-22 00:00:00 Completed [facility] TDAP 2013-05-22 00:00:00 Completed [facility] Influenza Virus Vaccine (3+ yrs) 2013-05-22 00:00:00 Completed [facility] Meningococcal Polysaccharide (groups A, C, Y and W-135) conjugate vaccine (MCV4P) 2013-05-22 00:00:00 Completed [facility] TDAP 2013-05-22 00:00:00 Completed [facility] Influenza Virus Vaccine (3+ yrs) 2013-05-22 00:00:00 Completed [facility] Meningococcal Polysaccharide (groups A, C, Y and W-135) conjugate vaccine (MCV4P) 2013-05-22 00:00:00 Completed [facility] TDAP 2013-05-22 00:00:00 Completed [facility] Influenza Virus Vaccine (3+ yrs) 2013-05-22 00:00:00 Completed [facility] Meningococcal Polysaccharide (groups A, C, Y and W-135) conjugate vaccine (MCV4P) 2013-05-22 00:00:00 Completed [facility] TDAP 2013-05-22 00:00:00 Completed [facility] Influenza Virus Vaccine (3+ yrs) 2013-05-22 00:00:00 Completed [facility] Meningococcal Polysaccharide (groups A, C, Y and W-135) conjugate vaccine (MCV4P) 2013-05-22 00:00:00 Completed [facility] TDAP 2013-05-22 00:00:00 Completed [facility] Influenza Virus Vaccine (3+ yrs) 2013-05-22 00:00:00 Completed [facility] Meningococcal Polysaccharide (groups A, C, Y and W-135) conjugate vaccine (MCV4P) 2013-05-22 00:00:00 Completed [facility] TDAP 2013-05-22 00:00:00 Completed [facility] Influenza Virus Vaccine (3+ yrs) 2013-05-22 00:00:00 Completed [facility] Meningococcal Polysaccharide (groups A, C, Y and W-135) conjugate vaccine (MCV4P) 2013-05-22 00:00:00 Completed [facility] TDAP 2013-05-22 00:00:00 Completed [facility] Influenza Virus Vaccine (3+ yrs) 2013-05-22 00:00:00 Completed [facility] Meningococcal Polysaccharide (groups A, C, Y and W-135) conjugate vaccine (MCV4P) 2013-05-22 00:00:00 Completed [facility] TDAP 2013-05-22 00:00:00 Completed [facility] Influenza Virus Vaccine (3+ yrs) 2013-05-22 00:00:00 Completed [facility] Meningococcal Polysaccharide (groups A, C, Y and W-135) conjugate vaccine (MCV4P) 2013-05-22 00:00:00 Completed [facility] TDAP 2013-05-22 00:00:00 Completed [facility] Influenza Virus Vaccine (3+ yrs) 2013-05-22 00:00:00 Completed [facility] Meningococcal Polysaccharide (groups A, C, Y and W-135) conjugate vaccine (MCV4P) 2013-05-22 00:00:00 Completed [facility] TDAP 2013-05-22 00:00:00 Completed [facility] Influenza Virus Vaccine (3+ yrs) 2013-05-22 00:00:00 Completed [facility] Meningococcal Polysaccharide (groups A, C, Y and W-135) conjugate vaccine (MCV4P) 2013-05-22 00:00:00 Completed [facility] TDAP 2013-05-22 00:00:00 Completed [facility] Influenza Virus Vaccine (3+ yrs) 2013-05-22 00:00:00 Completed [facility] Meningococcal Polysaccharide (groups A, C, Y and W-135) conjugate vaccine (MCV4P) 2013-05-22 00:00:00 Completed [facility] TDAP 2013-05-22 00:00:00 Completed [facility] Influenza Virus Vaccine (3+ yrs) 2013-05-22 00:00:00 Completed [facility] Meningococcal Polysaccharide (groups A, C, Y and W-135) conjugate vaccine (MCV4P) 2013-05-22 00:00:00 Completed [facility] TDAP 2013-05-22 00:00:00 Completed [facility] Influenza Virus Vaccine (3+ yrs) 2013-05-22 00:00:00 Completed [facility] Meningococcal Polysaccharide (groups A, C, Y and W-135) conjugate vaccine (MCV4P) 2013-05-22 00:00:00 Completed [facility] TDAP 2013-05-22 00:00:00 Completed [facility] Influenza Virus Vaccine (3+ yrs) 2013-05-22 00:00:00 Completed [facility] Meningococcal Polysaccharide (groups A, C, Y and W-135) conjugate vaccine (MCV4P) 2013-05-22 00:00:00 Completed [facility] TDAP 2013-05-22 00:00:00 Completed [facility] Influenza Virus Vaccine (3+ yrs) 2013-05-22 00:00:00 Completed [facility] Meningococcal Polysaccharide (groups A, C, Y and W-135) conjugate vaccine (MCV4P) 2013-05-22 00:00:00 Completed [facility] TDAP 2013-05-22 00:00:00 Completed [facility] Influenza Virus Vaccine (3+ yrs) 2013-05-22 00:00:00 Completed [facility] Meningococcal Polysaccharide (groups A, C, Y and W-135) conjugate vaccine (MCV4P) 2013-05-22 00:00:00 Completed [facility] TDAP 2013-05-22 00:00:00 Completed [facility] Influenza Virus Vaccine (3+ yrs) 2013-05-22 00:00:00 Completed [facility] Meningococcal Polysaccharide (groups A, C, Y and W-135) conjugate vaccine (MCV4P) 2013-05-22 00:00:00 Completed [facility] TDAP 2013-05-22 00:00:00 Completed [facility] Influenza Virus Vaccine (3+ yrs) 2013-05-22 00:00:00 Completed [facility] Meningococcal Polysaccharide (groups A, C, Y and W-135) conjugate vaccine (MCV4P) 2013-05-22 00:00:00 Completed [facility] TDAP 2013-05-22 00:00:00 Completed [facility] Influenza Virus Vaccine (3+ yrs) 2013-05-22 00:00:00 Completed [facility] Meningococcal Polysaccharide (groups A, C, Y and W-135) conjugate vaccine (MCV4P) 2013-05-22 00:00:00 Completed [facility] TDAP 2013-05-22 00:00:00 Completed [facility] Influenza Virus Vaccine (3+ yrs) 2013-05-22 00:00:00 Completed [facility] Meningococcal Polysaccharide (groups A, C, Y and W-135) conjugate vaccine (MCV4P) 2013-05-22 00:00:00 Completed [facility] TDAP 2013-05-22 00:00:00 Completed [facility] Influenza Virus Vaccine (3+ yrs) 2013-05-22 00:00:00 Completed [facility] Meningococcal Polysaccharide (groups A, C, Y and W-135) conjugate vaccine (MCV4P) 2013-05-22 00:00:00 Completed [facility] TDAP 2013-05-22 00:00:00 Completed [facility] Influenza Virus Vaccine (3+ yrs) 2013-05-22 00:00:00 Completed [facility] Meningococcal Polysaccharide (groups A, C, Y and W-135) conjugate vaccine (MCV4P) 2013-05-22 00:00:00 Completed [facility] TDAP 2013-05-22 00:00:00 Completed [facility] Influenza Virus Vaccine (3+ yrs) 2013-05-22 00:00:00 Completed [facility] Meningococcal Polysaccharide (groups A, C, Y and W-135) conjugate vaccine (MCV4P) 2013-05-22 00:00:00 Completed [facility] TDAP 2013-05-22 00:00:00 Completed [facility] Influenza Virus Vaccine (3+ yrs) 2013-05-22 00:00:00 Completed [facility] Meningococcal Polysaccharide (groups A, C, Y and W-135) conjugate vaccine (MCV4P) 2013-05-22 00:00:00 Completed [facility] TDAP 2013-05-22 00:00:00 Completed [facility] Influenza Virus Vaccine (3+ yrs) 2013-05-22 00:00:00 Completed [facility] Meningococcal Polysaccharide (groups A, C, Y and W-135) conjugate vaccine (MCV4P) 2013-05-22 00:00:00 Completed [facility] TDAP 2013-05-22 00:00:00 Completed [facility] Influenza Virus Vaccine (3+ yrs) 2013-05-22 00:00:00 Completed [facility] Meningococcal Polysaccharide (groups A, C, Y and W-135) conjugate vaccine (MCV4P) 2013-05-22 00:00:00 Completed [facility] TDAP 2013-05-22 00:00:00 Completed [facility] Influenza Virus Vaccine (3+ yrs) 2013-05-22 00:00:00 Completed [facility] Meningococcal Polysaccharide (groups A, C, Y and W-135) conjugate vaccine (MCV4P) 2013-05-22 00:00:00 Completed [facility] TDAP 2013-05-22 00:00:00 Completed [facility] Influenza Virus Vaccine (3+ yrs) 2013-05-22 00:00:00 Completed [facility] Meningococcal Polysaccharide (groups A, C, Y and W-135) conjugate vaccine (MCV4P) 2013-05-22 00:00:00 Completed [facility] TDAP 2013-05-22 00:00:00 Completed [facility] Influenza Virus Vaccine (3+ yrs) 2013-05-22 00:00:00 Completed [facility] Meningococcal Polysaccharide (groups A, C, Y and W-135) conjugate vaccine (MCV4P) 2013-05-22 00:00:00 Completed [facility] TDAP 2013-05-22 00:00:00 Completed [facility] Influenza Virus Vaccine (3+ yrs) 2013-05-22 00:00:00 Completed [facility] Meningococcal Polysaccharide (groups A, C, Y and W-135) conjugate vaccine (MCV4P) 2013-05-22 00:00:00 Completed [facility] TDAP 2013-05-22 00:00:00 Completed [facility] Influenza Virus Vaccine (3+ yrs) 2013-05-22 00:00:00 Completed [facility] Meningococcal Polysaccharide (groups A, C, Y and W-135) conjugate vaccine (MCV4P) 2013-05-22 00:00:00 Completed [facility] TDAP 2013-05-22 00:00:00 Completed [facility] Influenza Virus Vaccine (3+ yrs) 2013-05-22 00:00:00 Completed [facility] Meningococcal Polysaccharide (groups A, C, Y and W-135) conjugate vaccine (MCV4P) 2013-05-22 00:00:00 Completed [facility] TDAP 2013-05-22 00:00:00 Completed [facility] Influenza Virus Vaccine (3+ yrs) 2013-05-22 00:00:00 Completed [facility] Meningococcal Polysaccharide (groups A, C, Y and W-135) conjugate vaccine (MCV4P) 2013-05-22 00:00:00 Completed [facility] TDAP 2013-05-22 00:00:00 Completed [facility] Influenza Virus Vaccine (3+ yrs) 2013-05-22 00:00:00 Completed [facility] Meningococcal Polysaccharide (groups A, C, Y and W-135) conjugate vaccine (MCV4P) 2013-05-22 00:00:00 Completed [facility] TDAP 2013-05-22 00:00:00 Completed [facility] Influenza Virus Vaccine (3+ yrs) 2013-05-22 00:00:00 Completed [facility] Meningococcal Polysaccharide (groups A, C, Y and W-135) conjugate vaccine (MCV4P) 2013-05-22 00:00:00 Completed [facility] TDAP 2013-05-22 00:00:00 Completed [facility] Influenza Virus Vaccine (3+ yrs) 2013-05-22 00:00:00 Completed [facility] Meningococcal Polysaccharide (groups A, C, Y and W-135) conjugate vaccine (MCV4P) 2013-05-22 00:00:00 Completed [facility] TDAP 2013-05-22 00:00:00 Completed [facility] Influenza Virus Vaccine (3+ yrs) 2013-05-22 00:00:00 Completed [facility] Meningococcal Polysaccharide (groups A, C, Y and W-135) conjugate vaccine (MCV4P) 2013-05-22 00:00:00 Completed [facility] TDAP 2013-05-22 00:00:00 Completed [facility] Influenza Virus Vaccine (3+ yrs) 2013-05-22 00:00:00 Completed [facility] Meningococcal Polysaccharide (groups A, C, Y and W-135) conjugate vaccine (MCV4P) 2013-05-22 00:00:00 Completed [facility] TDAP 2013-05-22 00:00:00 Completed [facility] Influenza Virus Vaccine (3+ yrs) 2013-05-22 00:00:00 Completed [facility] Meningococcal Polysaccharide (groups A, C, Y and W-135) conjugate vaccine (MCV4P) 2013-05-22 00:00:00 Completed [facility] TDAP 2013-05-22 00:00:00 Completed [facility] Influenza Virus Vaccine (3+ yrs) 2013-05-22 00:00:00 Completed [facility] Meningococcal Polysaccharide (groups A, C, Y and W-135) conjugate vaccine (MCV4P) 2013-05-22 00:00:00 Completed [facility] TDAP 2013-05-22 00:00:00 Completed [facility] Influenza Virus Vaccine (3+ yrs) 2013-05-22 00:00:00 Completed [facility] Meningococcal Polysaccharide (groups A, C, Y and W-135) conjugate vaccine (MCV4P) 2013-05-22 00:00:00 Completed [facility] TDAP 2013-05-22 00:00:00 Completed [facility] Influenza Virus Vaccine (3+ yrs) 2013-05-22 00:00:00 Completed [facility] Meningococcal Polysaccharide (groups A, C, Y and W-135) conjugate vaccine (MCV4P) 2013-05-22 00:00:00 Completed [facility] TDAP 2013-05-22 00:00:00 Completed [facility] Influenza Virus Vaccine (3+ yrs) 2013-05-22 00:00:00 Completed [facility] Meningococcal Polysaccharide (groups A, C, Y and W-135) conjugate vaccine (MCV4P) 2013-05-22 00:00:00 Completed [facility] TDAP 2013-05-22 00:00:00 Completed [facility] Influenza Virus Vaccine (3+ yrs) 2013-05-22 00:00:00 Completed [facility] Meningococcal Polysaccharide (groups A, C, Y and W-135) conjugate vaccine (MCV4P) 2013-05-22 00:00:00 Completed [facility] TDAP 2013-05-22 00:00:00 Completed [facility] Influenza Virus Vaccine 2012-06-13 00:00:00 Completed [facility] Influenza Virus Vaccine 2012-06-13 00:00:00 Completed [facility] Influenza Virus Vaccine 2012-06-13 00:00:00 Completed [facility] Influenza Virus Vaccine 2012-06-13 00:00:00 Completed [facility] Influenza Virus Vaccine 2012-06-13 00:00:00 Completed [facility] Influenza Virus Vaccine 2012-06-13 00:00:00 Completed [facility] Influenza Virus Vaccine 2012-06-13 00:00:00 Completed [facility] Influenza Virus Vaccine 2012-06-13 00:00:00 Completed [facility] Influenza Virus Vaccine 2012-06-13 00:00:00 Completed [facility] Influenza Virus Vaccine 2012-06-13 00:00:00 Completed [facility] Influenza Virus Vaccine 2012-06-13 00:00:00 Completed [facility] Influenza Virus Vaccine 2012-06-13 00:00:00 Completed [facility] Influenza Virus Vaccine 2012-06-13 00:00:00 Completed [facility] Influenza Virus Vaccine 2012-06-13 00:00:00 Completed [facility] Influenza Virus Vaccine 2012-06-13 00:00:00 Completed [facility] Influenza Virus Vaccine 2012-06-13 00:00:00 Completed [facility] Influenza Virus Vaccine 2012-06-13 00:00:00 Completed [facility] Influenza Virus Vaccine 2012-06-13 00:00:00 Completed [facility] Influenza Virus Vaccine 2012-06-13 00:00:00 Completed [facility] Influenza Virus Vaccine 2012-06-13 00:00:00 Completed [facility] Influenza Virus Vaccine 2012-06-13 00:00:00 Completed [facility] Influenza Virus Vaccine 2012-06-13 00:00:00 Completed [facility] Influenza Virus Vaccine 2012-06-13 00:00:00 Completed [facility] Influenza Virus Vaccine 2012-06-13 00:00:00 Completed [facility] Influenza Virus Vaccine 2012-06-13 00:00:00 Completed [facility] Influenza Virus Vaccine 2012-06-13 00:00:00 Completed [facility] Influenza Virus Vaccine 2012-06-13 00:00:00 Completed [facility] Influenza Virus Vaccine 2012-06-13 00:00:00 Completed [facility] Influenza Virus Vaccine 2012-06-13 00:00:00 Completed [facility] Influenza Virus Vaccine 2012-06-13 00:00:00 Completed [facility] Influenza Virus Vaccine 2012-06-13 00:00:00 Completed [facility] Influenza Virus Vaccine 2012-06-13 00:00:00 Completed [facility] Influenza Virus Vaccine 2012-06-13 00:00:00 Completed [facility] Influenza Virus Vaccine 2012-06-13 00:00:00 Completed [facility] Influenza Virus Vaccine 2012-06-13 00:00:00 Completed [facility] Influenza Virus Vaccine 2012-06-13 00:00:00 Completed [facility] Influenza Virus Vaccine 2012-06-13 00:00:00 Completed [facility] Influenza Virus Vaccine 2012-06-13 00:00:00 Completed [facility] Influenza Virus Vaccine 2012-06-13 00:00:00 Completed [facility] Influenza Virus Vaccine 2012-06-13 00:00:00 Completed [facility] Influenza Virus Vaccine 2012-06-13 00:00:00 Completed [facility] Influenza Virus Vaccine 2012-06-13 00:00:00 Completed [facility] Influenza Virus Vaccine 2012-06-13 00:00:00 Completed [facility] Influenza Virus Vaccine 2012-06-13 00:00:00 Completed [facility] Influenza Virus Vaccine 2012-06-13 00:00:00 Completed [facility] Influenza Virus Vaccine 2012-06-13 00:00:00 Completed [facility] Influenza Virus Vaccine 2012-06-13 00:00:00 Completed [facility] Influenza Virus Vaccine 2012-06-13 00:00:00 Completed [facility] Influenza Virus Vaccine 2012-06-13 00:00:00 Completed [facility] Influenza Virus Vaccine 2012-06-13 00:00:00 Completed [facility] Influenza Virus Vaccine 2012-06-13 00:00:00 Completed [facility] Influenza Virus Vaccine 2012-06-13 00:00:00 Completed [facility] Influenza Virus Vaccine 2012-06-13 00:00:00 Completed [facility] Influenza Virus Vaccine 2012-06-13 00:00:00 Completed [facility] Influenza Virus Vaccine 2012-06-13 00:00:00 Completed [facility] Influenza Virus Vaccine 2012-06-13 00:00:00 Completed [facility] Influenza Virus Vaccine 2012-06-13 00:00:00 Completed [facility] Influenza Virus Vaccine 2012-06-13 00:00:00 Completed [facility] Influenza Virus Vaccine 2012-06-13 00:00:00 Completed [facility] Influenza Virus Vaccine 2012-06-13 00:00:00 Completed [facility] Influenza Virus Vaccine 2012-06-13 00:00:00 Completed [facility] Influenza Virus Vaccine 2012-06-13 00:00:00 Completed [facility] Influenza Virus Vaccine 2012-06-13 00:00:00 Completed [facility] Influenza Virus Vaccine 2012-06-13 00:00:00 Completed [facility] Influenza Virus Vaccine 2012-06-13 00:00:00 Completed [facility] Influenza Virus Vaccine 2012-06-13 00:00:00 Completed [facility] Influenza Virus Vaccine 2012-06-13 00:00:00 Completed [facility] Influenza Virus Vaccine 2012-06-13 00:00:00 Completed [facility] Influenza Virus Vaccine 2012-06-13 00:00:00 Completed [facility] Influenza Virus Vaccine 2012-06-13 00:00:00 Completed [facility] Influenza Virus Vaccine 2012-06-13 00:00:00 Completed [facility] Influenza Virus Vaccine 2012-06-13 00:00:00 Completed [facility] Influenza Virus Vaccine 2012-06-13 00:00:00 Completed [facility] Influenza Virus Vaccine 2012-06-13 00:00:00 Completed [facility] Influenza Virus Vaccine 2012-06-13 00:00:00 Completed [facility] Influenza Virus Vaccine 2012-06-13 00:00:00 Completed [facility] Influenza Virus Vaccine 2012-06-13 00:00:00 Completed [facility] Influenza Virus Vaccine 2012-06-13 00:00:00 Completed [facility] Influenza Virus Vaccine 2012-06-13 00:00:00 Completed [facility] Influenza Virus Vaccine 2012-06-13 00:00:00 Completed [facility] Influenza Virus Vaccine 2012-06-13 00:00:00 Completed [facility] Influenza Virus Vaccine 2012-06-13 00:00:00 Completed [facility] Influenza Virus Vaccine 2012-06-13 00:00:00 Completed [facility] Influenza Virus Vaccine 2012-06-13 00:00:00 Completed [facility] Influenza Virus Vaccine 2012-06-13 00:00:00 Completed [facility] Influenza Virus Vaccine 2012-06-13 00:00:00 Completed [facility] Influenza Virus Vaccine 2012-06-13 00:00:00 Completed [facility] Influenza Virus Vaccine 2012-06-13 00:00:00 Completed [facility] Influenza Virus Vaccine 2012-06-13 00:00:00 Completed [facility] Influenza Virus Vaccine 2012-06-13 00:00:00 Completed [facility] Influenza Virus Vaccine 2012-06-13 00:00:00 Completed [facility] Influenza Virus Vaccine 2012-06-13 00:00:00 Completed [facility] Influenza Virus Vaccine 2012-06-13 00:00:00 [facility] [facility] Influenza Virus Vaccine 2012-06-13 00:00:00 Completed [facility] Influenza Virus Vaccine 2012-06-13 00:00:00 Completed [facility] Influenza Virus Vaccine 2012-06-13 00:00:00 Completed [facility] Influenza Virus Vaccine 2012-06-13 00:00:00 Completed [facility] Influenza Virus Vaccine 2012-06-13 00:00:00 Completed [facility] Influenza Virus Vaccine 2012-06-13 00:00:00 Completed [facility] Influenza Virus Vaccine 2012-06-13 00:00:00 Completed [facility] Influenza Virus Vaccine 2012-06-13 00:00:00 Completed [facility] Influenza Virus Vaccine 2012-06-13 00:00:00 Completed [facility] Influenza Virus Vaccine 2012-06-13 00:00:00 Completed [facility] Influenza Virus Vaccine 2012-06-13 00:00:00 Completed [facility] Influenza Virus Vaccine 2012-06-13 00:00:00 Completed [facility] Influenza Virus Vaccine 2011-05-18 00:00:00 Completed [facility] Influenza Virus Vaccine 2011-05-18 00:00:00 Completed [facility] Influenza Virus Vaccine 2011-05-18 00:00:00 Completed [facility] Influenza Virus Vaccine 2011-05-18 00:00:00 Completed [facility] Influenza Virus Vaccine 2011-05-18 00:00:00 Completed [facility] Influenza Virus Vaccine 2011-05-18 00:00:00 Completed [facility] Influenza Virus Vaccine 2011-05-18 00:00:00 Completed [facility] Influenza Virus Vaccine 2011-05-18 00:00:00 Completed [facility] Influenza Virus Vaccine 2011-05-18 00:00:00 Completed [facility] Influenza Virus Vaccine 2011-05-18 00:00:00 Completed [facility] Influenza Virus Vaccine 2011-05-18 00:00:00 Completed [facility] Influenza Virus Vaccine 2011-05-18 00:00:00 Completed [facility] Influenza Virus Vaccine 2011-05-18 00:00:00 Completed [facility] Influenza Virus Vaccine 2011-05-18 00:00:00 Completed [facility] Influenza Virus Vaccine 2011-05-18 00:00:00 Completed [facility] Influenza Virus Vaccine 2011-05-18 00:00:00 Completed [facility] Influenza Virus Vaccine 2011-05-18 00:00:00 Completed [facility] Influenza Virus Vaccine 2011-05-18 00:00:00 Completed [facility] Influenza Virus Vaccine 2011-05-18 00:00:00 Completed [facility] Influenza Virus Vaccine 2011-05-18 00:00:00 Completed [facility] Influenza Virus Vaccine 2011-05-18 00:00:00 Completed [facility] Influenza Virus Vaccine 2011-05-18 00:00:00 Completed [facility] Influenza Virus Vaccine 2011-05-18 00:00:00 Completed [facility] Influenza Virus Vaccine 2011-05-18 00:00:00 Completed [facility] Influenza Virus Vaccine 2011-05-18 00:00:00 Completed [facility] Influenza Virus Vaccine 2011-05-18 00:00:00 Completed [facility] Influenza Virus Vaccine 2011-05-18 00:00:00 Completed [facility] Influenza Virus Vaccine 2011-05-18 00:00:00 Completed [facility] Influenza Virus Vaccine 2011-05-18 00:00:00 Completed [facility] Influenza Virus Vaccine 2011-05-18 00:00:00 Completed [facility] Influenza Virus Vaccine 2011-05-18 00:00:00 Completed [facility] Influenza Virus Vaccine 2011-05-18 00:00:00 Completed [facility] Influenza Virus Vaccine 2011-05-18 00:00:00 Completed [facility] Influenza Virus Vaccine 2011-05-18 00:00:00 Completed [facility] Influenza Virus Vaccine 2011-05-18 00:00:00 Completed [facility] Influenza Virus Vaccine 2011-05-18 00:00:00 Completed [facility] Influenza Virus Vaccine 2011-05-18 00:00:00 Completed [facility] Influenza Virus Vaccine 2011-05-18 00:00:00 Completed [facility] Influenza Virus Vaccine 2011-05-18 00:00:00 Completed [facility] Influenza Virus Vaccine 2011-05-18 00:00:00 Completed [facility] Influenza Virus Vaccine 2011-05-18 00:00:00 Completed [facility] Influenza Virus Vaccine 2011-05-18 00:00:00 Completed [facility] Influenza Virus Vaccine 2011-05-18 00:00:00 Completed [facility] Influenza Virus Vaccine 2011-05-18 00:00:00 Completed [facility] Influenza Virus Vaccine 2011-05-18 00:00:00 Completed [facility] Influenza Virus Vaccine 2011-05-18 00:00:00 Completed [facility] Influenza Virus Vaccine 2011-05-18 00:00:00 Completed [facility] Influenza Virus Vaccine 2011-05-18 00:00:00 Completed [facility] Influenza Virus Vaccine 2011-05-18 00:00:00 Completed [facility] Influenza Virus Vaccine 2011-05-18 00:00:00 Completed [facility] Influenza Virus Vaccine 2011-05-18 00:00:00 Completed [facility] Influenza Virus Vaccine 2011-05-18 00:00:00 Completed [facility] Influenza Virus Vaccine 2011-05-18 00:00:00 Completed [facility] Influenza Virus Vaccine 2011-05-18 00:00:00 Completed [facility] Influenza Virus Vaccine 2011-05-18 00:00:00 Completed [facility] Influenza Virus Vaccine 2011-05-18 00:00:00 Completed [facility] Influenza Virus Vaccine 2011-05-18 00:00:00 Completed [facility] Influenza Virus Vaccine 2011-05-18 00:00:00 Completed [facility] Influenza Virus Vaccine 2011-05-18 00:00:00 Completed [facility] Influenza Virus Vaccine 2011-05-18 00:00:00 Completed [facility] Influenza Virus Vaccine 2011-05-18 00:00:00 Completed [facility] Influenza Virus Vaccine 2011-05-18 00:00:00 Completed [facility] Influenza Virus Vaccine 2011-05-18 00:00:00 Completed [facility] Influenza Virus Vaccine 2011-05-18 00:00:00 Completed [facility] Influenza Virus Vaccine 2011-05-18 00:00:00 Completed [facility] Influenza Virus Vaccine 2011-05-18 00:00:00 Completed [facility] Influenza Virus Vaccine 2011-05-18 00:00:00 Completed [facility] Influenza Virus Vaccine 2011-05-18 00:00:00 Completed [facility] Influenza Virus Vaccine 2011-05-18 00:00:00 Completed [facility] Influenza Virus Vaccine 2011-05-18 00:00:00 Completed [facility] Influenza Virus Vaccine 2011-05-18 00:00:00 Completed [facility] Influenza Virus Vaccine 2011-05-18 00:00:00 Completed [facility] Influenza Virus Vaccine 2011-05-18 00:00:00 Completed [facility] Influenza Virus Vaccine 2011-05-18 00:00:00 Completed [facility] Influenza Virus Vaccine 2011-05-18 00:00:00 Completed [facility] Influenza Virus Vaccine 2011-05-18 00:00:00 Completed [facility] Influenza Virus Vaccine 2011-05-18 00:00:00 Completed [facility] Influenza Virus Vaccine 2011-05-18 00:00:00 Completed [facility] Influenza Virus Vaccine 2011-05-18 00:00:00 Completed [facility] Influenza Virus Vaccine 2011-05-18 00:00:00 Completed [facility] Influenza Virus Vaccine 2011-05-18 00:00:00 Completed [facility] Influenza Virus Vaccine 2011-05-18 00:00:00 Completed [facility] Influenza Virus Vaccine 2011-05-18 00:00:00 Completed [facility] Influenza Virus Vaccine 2011-05-18 00:00:00 Completed [facility] Influenza Virus Vaccine 2011-05-18 00:00:00 Completed [facility] Influenza Virus Vaccine 2011-05-18 00:00:00 Completed [facility] Influenza Virus Vaccine 2011-05-18 00:00:00 Completed [facility] Influenza Virus Vaccine 2011-05-18 00:00:00 Completed [facility] Influenza Virus Vaccine 2011-05-18 00:00:00 Completed [facility] Influenza Virus Vaccine 2011-05-18 00:00:00 Completed [facility] Influenza Virus Vaccine 2011-05-18 00:00:00 Completed [facility] Influenza Virus Vaccine 2011-05-18 00:00:00 Completed [facility] Influenza Virus Vaccine 2011-05-18 00:00:00 Completed [facility] Influenza Virus Vaccine 2011-05-18 00:00:00 Completed [facility] Influenza Virus Vaccine 2011-05-18 00:00:00 Completed [facility] Influenza Virus Vaccine 2011-05-18 00:00:00 Completed [facility] Influenza Virus Vaccine 2011-05-18 00:00:00 Completed [facility] Influenza Virus Vaccine 2011-05-18 00:00:00 Completed [facility] Influenza Virus Vaccine 2011-05-18 00:00:00 Completed [facility] Influenza Virus Vaccine 2011-05-18 00:00:00 Completed [facility] Influenza Virus Vaccine 2011-05-18 00:00:00 Completed [facility] Influenza Virus Vaccine 2011-05-18 00:00:00 Completed [facility] Influenza Virus Vaccine 2011-05-18 00:00:00 Completed [facility] Influenza Virus Vaccine 2011-05-18 00:00:00 Completed [facility] Influenza Virus Vaccine 2011-05-18 00:00:00 Completed [facility] Influenza Virus Vaccine 2010-05-26 00:00:00 Completed [facility] Influenza Virus Vaccine 2010-05-26 00:00:00 Completed [facility] Influenza Virus Vaccine 2010-05-26 00:00:00 Completed [facility] Influenza Virus Vaccine 2010-05-26 00:00:00 Completed [facility] Influenza Virus Vaccine 2010-05-26 00:00:00 Completed [facility] Influenza Virus Vaccine 2010-05-26 00:00:00 Completed [facility] Influenza Virus Vaccine 2010-05-26 00:00:00 Completed [facility] Influenza Virus Vaccine 2010-05-26 00:00:00 Completed [facility] Influenza Virus Vaccine 2010-05-26 00:00:00 Completed [facility] Influenza Virus Vaccine 2010-05-26 00:00:00 Completed [facility] Influenza Virus Vaccine 2010-05-26 00:00:00 Completed [facility] Influenza Virus Vaccine 2010-05-26 00:00:00 Completed [facility] Influenza Virus Vaccine 2010-05-26 00:00:00 Completed [facility] Influenza Virus Vaccine 2010-05-26 00:00:00 Completed [facility] Influenza Virus Vaccine 2010-05-26 00:00:00 Completed [facility] Influenza Virus Vaccine 2010-05-26 00:00:00 Completed [facility] Influenza Virus Vaccine 2010-05-26 00:00:00 Completed [facility] Influenza Virus Vaccine 2010-05-26 00:00:00 Completed [facility] Influenza Virus Vaccine 2010-05-26 00:00:00 Completed [facility] Influenza Virus Vaccine 2010-05-26 00:00:00 Completed [facility] Influenza Virus Vaccine 2010-05-26 00:00:00 Completed [facility] Influenza Virus Vaccine 2010-05-26 00:00:00 Completed [facility] Influenza Virus Vaccine 2010-05-26 00:00:00 Completed [facility] Influenza Virus Vaccine 2010-05-26 00:00:00 Completed [facility] Influenza Virus Vaccine 2010-05-26 00:00:00 Completed [facility] Influenza Virus Vaccine 2010-05-26 00:00:00 Completed [facility] Influenza Virus Vaccine 2010-05-26 00:00:00 Completed [facility] Influenza Virus Vaccine 2010-05-26 00:00:00 Completed [facility] Influenza Virus Vaccine 2010-05-26 00:00:00 Completed [facility] Influenza Virus Vaccine 2010-05-26 00:00:00 Completed [facility] Influenza Virus Vaccine 2010-05-26 00:00:00 Completed [facility] Influenza Virus Vaccine 2010-05-26 00:00:00 Completed [facility] Influenza Virus Vaccine 2010-05-26 00:00:00 Completed [facility] Influenza Virus Vaccine 2010-05-26 00:00:00 Completed [facility] Influenza Virus Vaccine 2010-05-26 00:00:00 Completed [facility] Influenza Virus Vaccine 2010-05-26 00:00:00 Completed [facility] Influenza Virus Vaccine 2010-05-26 00:00:00 Completed [facility] Influenza Virus Vaccine 2010-05-26 00:00:00 Completed [facility] Influenza Virus Vaccine 2010-05-26 00:00:00 Completed [facility] Influenza Virus Vaccine 2010-05-26 00:00:00 Completed [facility] Influenza Virus Vaccine 2010-05-26 00:00:00 Completed [facility] Influenza Virus Vaccine 2010-05-26 00:00:00 Completed [facility] Influenza Virus Vaccine 2010-05-26 00:00:00 Completed [facility] Influenza Virus Vaccine 2010-05-26 00:00:00 Completed [facility] Influenza Virus Vaccine 2010-05-26 00:00:00 Completed [facility] Influenza Virus Vaccine 2010-05-26 00:00:00 Completed [facility] Influenza Virus Vaccine 2010-05-26 00:00:00 Completed [facility] Influenza Virus Vaccine 2010-05-26 00:00:00 Completed [facility] Influenza Virus Vaccine 2010-05-26 00:00:00 Completed [facility] Influenza Virus Vaccine 2010-05-26 00:00:00 Completed [facility] Influenza Virus Vaccine 2010-05-26 00:00:00 Completed [facility] Influenza Virus Vaccine 2010-05-26 00:00:00 Completed [facility] Influenza Virus Vaccine 2010-05-26 00:00:00 Completed [facility] Influenza Virus Vaccine 2010-05-26 00:00:00 Completed [facility] Influenza Virus Vaccine 2010-05-26 00:00:00 Completed [facility] Influenza Virus Vaccine 2010-05-26 00:00:00 Completed [facility] Influenza Virus Vaccine 2010-05-26 00:00:00 Completed [facility] Influenza Virus Vaccine 2010-05-26 00:00:00 Completed [facility] Influenza Virus Vaccine 2010-05-26 00:00:00 Completed [facility] Influenza Virus Vaccine 2010-05-26 00:00:00 Completed [facility] Influenza Virus Vaccine 2010-05-26 00:00:00 Completed [facility] Influenza Virus Vaccine 2010-05-26 00:00:00 Completed [facility] Influenza Virus Vaccine 2010-05-26 00:00:00 Completed [facility] Influenza Virus Vaccine 2010-05-26 00:00:00 Completed [facility] Influenza Virus Vaccine 2010-05-26 00:00:00 Completed [facility] Influenza Virus Vaccine 2010-05-26 00:00:00 Completed [facility] Influenza Virus Vaccine 2010-05-26 00:00:00 Completed [facility] Influenza Virus Vaccine 2010-05-26 00:00:00 Completed [facility] Influenza Virus Vaccine 2010-05-26 00:00:00 Completed [facility] Influenza Virus Vaccine 2010-05-26 00:00:00 Completed [facility] Influenza Virus Vaccine 2010-05-26 00:00:00 Completed [facility] Influenza Virus Vaccine 2010-05-26 00:00:00 Completed [facility] Influenza Virus Vaccine 2010-05-26 00:00:00 Completed [facility] Influenza Virus Vaccine 2010-05-26 00:00:00 Completed [facility] Influenza Virus Vaccine 2010-05-26 00:00:00 Completed [facility] Influenza Virus Vaccine 2010-05-26 00:00:00 Completed [facility] Influenza Virus Vaccine 2010-05-26 00:00:00 Completed [facility] Influenza Virus Vaccine 2010-05-26 00:00:00 Completed [facility] Influenza Virus Vaccine 2010-05-26 00:00:00 Completed [facility] Influenza Virus Vaccine 2010-05-26 00:00:00 Completed [facility] Influenza Virus Vaccine 2010-05-26 00:00:00 Completed [facility] Influenza Virus Vaccine 2010-05-26 00:00:00 Completed [facility] Influenza Virus Vaccine 2010-05-26 00:00:00 Completed [facility] Influenza Virus Vaccine 2010-05-26 00:00:00 Completed [facility] Influenza Virus Vaccine 2010-05-26 00:00:00 Completed [facility] Influenza Virus Vaccine 2010-05-26 00:00:00 Completed [facility] Influenza Virus Vaccine 2010-05-26 00:00:00 Completed [facility] Influenza Virus Vaccine 2010-05-26 00:00:00 Completed [facility] Influenza Virus Vaccine 2010-05-26 00:00:00 Completed [facility] Influenza Virus Vaccine 2010-05-26 00:00:00 Completed [facility] Influenza Virus Vaccine 2010-05-26 00:00:00 Completed [facility] Influenza Virus Vaccine 2010-05-26 00:00:00 Completed [facility] Influenza Virus Vaccine 2010-05-26 00:00:00 Completed [facility] Influenza Virus Vaccine 2010-05-26 00:00:00 Completed [facility] Influenza Virus Vaccine 2010-05-26 00:00:00 Completed [facility] Influenza Virus Vaccine 2010-05-26 00:00:00 Completed [facility] Influenza Virus Vaccine 2010-05-26 00:00:00 Completed [facility] Influenza Virus Vaccine 2010-05-26 00:00:00 Completed [facility] Influenza Virus Vaccine 2010-05-26 00:00:00 Completed [facility] Influenza Virus Vaccine 2010-05-26 00:00:00 Completed [facility] Influenza Virus Vaccine 2010-05-26 00:00:00 Completed [facility] Influenza Virus Vaccine 2010-05-26 00:00:00 Completed [facility] Influenza Virus Vaccine 2010-05-26 00:00:00 Completed [facility] Influenza Virus Vaccine 2010-05-26 00:00:00 Completed [facility] Influenza Virus Vaccine 2010-05-26 00:00:00 Completed [facility] Influenza Virus Vaccine 2009-06-23 00:00:00 Completed [facility] Influenza Virus Vaccine 2009-06-23 00:00:00 Completed [facility] Influenza Virus Vaccine 2009-06-23 00:00:00 Completed [facility] Influenza Virus Vaccine 2009-06-23 00:00:00 Completed [facility] Influenza Virus Vaccine 2009-06-23 00:00:00 Completed [facility] Influenza Virus Vaccine 2009-06-23 00:00:00 Completed [facility] Influenza Virus Vaccine 2009-06-23 00:00:00 Completed [facility] Influenza Virus Vaccine 2009-06-23 00:00:00 Completed [facility] Influenza Virus Vaccine 2009-06-23 00:00:00 Completed [facility] Influenza Virus Vaccine 2009-06-23 00:00:00 Completed [facility] Influenza Virus Vaccine 2009-06-23 00:00:00 Completed [facility] Influenza Virus Vaccine 2009-06-23 00:00:00 Completed [facility] Influenza Virus Vaccine 2009-06-23 00:00:00 Completed [facility] Influenza Virus Vaccine 2009-06-23 00:00:00 Completed [facility] Influenza Virus Vaccine 2009-06-23 00:00:00 Completed [facility] Influenza Virus Vaccine 2009-06-23 00:00:00 Completed [facility] Influenza Virus Vaccine 2009-06-23 00:00:00 Completed [facility] Influenza Virus Vaccine 2009-06-23 00:00:00 Completed [facility] Influenza Virus Vaccine 2009-06-23 00:00:00 Completed [facility] Influenza Virus Vaccine 2009-06-23 00:00:00 Completed [facility] Influenza Virus Vaccine 2009-06-23 00:00:00 Completed [facility] Influenza Virus Vaccine 2009-06-23 00:00:00 Completed [facility] Influenza Virus Vaccine 2009-06-23 00:00:00 Completed [facility] Influenza Virus Vaccine 2009-06-23 00:00:00 Completed [facility] Influenza Virus Vaccine 2009-06-23 00:00:00 Completed [facility] Influenza Virus Vaccine 2009-06-23 00:00:00 Completed [facility] Influenza Virus Vaccine 2009-06-23 00:00:00 Completed [facility] Influenza Virus Vaccine 2009-06-23 00:00:00 Completed [facility] Influenza Virus Vaccine 2009-06-23 00:00:00 Completed [facility] Influenza Virus Vaccine 2009-06-23 00:00:00 Completed [facility] Influenza Virus Vaccine 2009-06-23 00:00:00 Completed [facility] Influenza Virus Vaccine 2009-06-23 00:00:00 Completed [facility] Influenza Virus Vaccine 2009-06-23 00:00:00 Completed [facility] Influenza Virus Vaccine 2009-06-23 00:00:00 Completed [facility] Influenza Virus Vaccine 2009-06-23 00:00:00 Completed [facility] Influenza Virus Vaccine 2009-06-23 00:00:00 Completed [facility] Influenza Virus Vaccine 2009-06-23 00:00:00 Completed [facility] Influenza Virus Vaccine 2009-06-23 00:00:00 Completed [facility] Influenza Virus Vaccine 2009-06-23 00:00:00 Completed [facility] Influenza Virus Vaccine 2009-06-23 00:00:00 Completed [facility] Influenza Virus Vaccine 2009-06-23 00:00:00 Completed [facility] Influenza Virus Vaccine 2009-06-23 00:00:00 Completed [facility] Influenza Virus Vaccine 2009-06-23 00:00:00 Completed [facility] Influenza Virus Vaccine 2009-06-23 00:00:00 Completed [facility] Influenza Virus Vaccine 2009-06-23 00:00:00 Completed [facility] Influenza Virus Vaccine 2009-06-23 00:00:00 Completed [facility] Influenza Virus Vaccine 2009-06-23 00:00:00 Completed [facility] Influenza Virus Vaccine 2009-06-23 00:00:00 Completed [facility] Influenza Virus Vaccine 2009-06-23 00:00:00 Completed [facility] Influenza Virus Vaccine 2009-06-23 00:00:00 Completed [facility] Influenza Virus Vaccine 2009-06-23 00:00:00 Completed [facility] Influenza Virus Vaccine 2009-06-23 00:00:00 Completed [facility] Influenza Virus Vaccine 2009-06-23 00:00:00 Completed [facility] Influenza Virus Vaccine 2009-06-23 00:00:00 Completed [facility] Influenza Virus Vaccine 2009-06-23 00:00:00 Completed [facility] Influenza Virus Vaccine 2009-06-23 00:00:00 Completed [facility] Influenza Virus Vaccine 2009-06-23 00:00:00 Completed [facility] Influenza Virus Vaccine 2009-06-23 00:00:00 Completed [facility] Influenza Virus Vaccine 2009-06-23 00:00:00 Completed [facility] Influenza Virus Vaccine 2009-06-23 00:00:00 Completed [facility] Influenza Virus Vaccine 2009-06-23 00:00:00 Completed [facility] Influenza Virus Vaccine 2009-06-23 00:00:00 Completed [facility] Influenza Virus Vaccine 2009-06-23 00:00:00 Completed [facility] Influenza Virus Vaccine 2009-06-23 00:00:00 Completed [facility] Influenza Virus Vaccine 2009-06-23 00:00:00 Completed [facility] Influenza Virus Vaccine 2009-06-23 00:00:00 Completed [facility] Influenza Virus Vaccine 2009-06-23 00:00:00 Completed [facility] Influenza Virus Vaccine 2009-06-23 00:00:00 Completed [facility] Influenza Virus Vaccine 2009-06-23 00:00:00 Completed [facility] Influenza Virus Vaccine 2009-06-23 00:00:00 Completed [facility] Influenza Virus Vaccine 2009-06-23 00:00:00 Completed [facility] Influenza Virus Vaccine 2009-06-23 00:00:00 Completed [facility] Influenza Virus Vaccine 2009-06-23 00:00:00 Completed [facility] Influenza Virus Vaccine 2009-06-23 00:00:00 Completed [facility] Influenza Virus Vaccine 2009-06-23 00:00:00 Completed [facility] Influenza Virus Vaccine 2009-06-23 00:00:00 Completed [facility] Influenza Virus Vaccine 2009-06-23 00:00:00 Completed [facility] Influenza Virus Vaccine 2009-06-23 00:00:00 Completed [facility] Influenza Virus Vaccine 2009-06-23 00:00:00 Completed [facility] Influenza Virus Vaccine 2009-06-23 00:00:00 Completed [facility] Influenza Virus Vaccine 2009-06-23 00:00:00 Completed [facility] Influenza Virus Vaccine 2009-06-23 00:00:00 Completed [facility] Influenza Virus Vaccine 2009-06-23 00:00:00 Completed [facility] Influenza Virus Vaccine 2009-06-23 00:00:00 Completed [facility] Influenza Virus Vaccine 2009-06-23 00:00:00 Completed [facility] Influenza Virus Vaccine 2009-06-23 00:00:00 Completed [facility] Influenza Virus Vaccine 2009-06-23 00:00:00 Completed [facility] Influenza Virus Vaccine 2009-06-23 00:00:00 Completed [facility] Influenza Virus Vaccine 2009-06-23 00:00:00 Completed [facility] Influenza Virus Vaccine 2009-06-23 00:00:00 Completed [facility] Influenza Virus Vaccine 2009-06-23 00:00:00 Completed [facility] Influenza Virus Vaccine 2009-06-23 00:00:00 Completed [facility] Influenza Virus Vaccine 2009-06-23 00:00:00 Completed [facility] Influenza Virus Vaccine 2009-06-23 00:00:00 Completed [facility] Influenza Virus Vaccine 2009-06-23 00:00:00 Completed [facility] Influenza Virus Vaccine 2009-06-23 00:00:00 Completed [facility] Influenza Virus Vaccine 2009-06-23 00:00:00 Completed [facility] Influenza Virus Vaccine 2009-06-23 00:00:00 Completed [facility] Influenza Virus Vaccine 2009-06-23 00:00:00 Completed [facility] Influenza Virus Vaccine 2009-06-23 00:00:00 Completed [facility] Influenza Virus Vaccine 2009-06-23 00:00:00 Completed [facility] Influenza Virus Vaccine 2009-06-23 00:00:00 Completed [facility] Influenza Virus Vaccine 2009-06-23 00:00:00 Completed [facility] Influenza Virus Vaccine 2009-06-23 00:00:00 Completed [facility] Influenza Virus Vaccine 2009-06-23 00:00:00 Completed [facility] Influenza Virus Vaccine 2009-05-20 00:00:00 Completed [facility] Influenza Virus Vaccine 2009-05-20 00:00:00 Completed [facility] Influenza Virus Vaccine 2009-05-20 00:00:00 Completed [facility] Influenza Virus Vaccine 2009-05-20 00:00:00 Completed [facility] Influenza Virus Vaccine 2009-05-20 00:00:00 Completed [facility] Influenza Virus Vaccine 2009-05-20 00:00:00 Completed [facility] Influenza Virus Vaccine 2009-05-20 00:00:00 Completed [facility] Influenza Virus Vaccine 2009-05-20 00:00:00 Completed [facility] Influenza Virus Vaccine 2009-05-20 00:00:00 Completed [facility] Influenza Virus Vaccine 2009-05-20 00:00:00 Completed [facility] Influenza Virus Vaccine 2009-05-20 00:00:00 Completed [facility] Influenza Virus Vaccine 2009-05-20 00:00:00 Completed [facility] Influenza Virus Vaccine 2009-05-20 00:00:00 Completed [facility] Influenza Virus Vaccine 2009-05-20 00:00:00 Completed [facility] Influenza Virus Vaccine 2009-05-20 00:00:00 Completed [facility] Influenza Virus Vaccine 2009-05-20 00:00:00 Completed [facility] Influenza Virus Vaccine 2009-05-20 00:00:00 Completed [facility] Influenza Virus Vaccine 2009-05-20 00:00:00 Completed [facility] Influenza Virus Vaccine 2009-05-20 00:00:00 Completed [facility] Influenza Virus Vaccine 2009-05-20 00:00:00 Completed [facility] Influenza Virus Vaccine 2009-05-20 00:00:00 Completed [facility] Influenza Virus Vaccine 2009-05-20 00:00:00 Completed [facility] Influenza Virus Vaccine 2009-05-20 00:00:00 Completed [facility] Influenza Virus Vaccine 2009-05-20 00:00:00 Completed [facility] Influenza Virus Vaccine 2009-05-20 00:00:00 Completed [facility] Influenza Virus Vaccine 2009-05-20 00:00:00 Completed [facility] Influenza Virus Vaccine 2009-05-20 00:00:00 Completed [facility] Influenza Virus Vaccine 2009-05-20 00:00:00 Completed [facility] Influenza Virus Vaccine 2009-05-20 00:00:00 Completed [facility] Influenza Virus Vaccine 2009-05-20 00:00:00 Completed [facility] Influenza Virus Vaccine 2009-05-20 00:00:00 Completed [facility] Influenza Virus Vaccine 2009-05-20 00:00:00 Completed [facility] Influenza Virus Vaccine 2009-05-20 00:00:00 Completed [facility] Influenza Virus Vaccine 2009-05-20 00:00:00 Completed [facility] Influenza Virus Vaccine 2009-05-20 00:00:00 Completed [facility] Influenza Virus Vaccine 2009-05-20 00:00:00 Completed [facility] Influenza Virus Vaccine 2009-05-20 00:00:00 Completed [facility] Influenza Virus Vaccine 2009-05-20 00:00:00 Completed [facility] Influenza Virus Vaccine 2009-05-20 00:00:00 Completed [facility] Influenza Virus Vaccine 2009-05-20 00:00:00 Completed [facility] Influenza Virus Vaccine 2009-05-20 00:00:00 Completed [facility] Influenza Virus Vaccine 2009-05-20 00:00:00 Completed [facility] Influenza Virus Vaccine 2009-05-20 00:00:00 Completed [facility] Influenza Virus Vaccine 2009-05-20 00:00:00 Completed [facility] Influenza Virus Vaccine 2009-05-20 00:00:00 Completed [facility] Influenza Virus Vaccine 2009-05-20 00:00:00 Completed [facility] Influenza Virus Vaccine 2009-05-20 00:00:00 Completed [facility] Influenza Virus Vaccine 2009-05-20 00:00:00 Completed [facility] Influenza Virus Vaccine 2009-05-20 00:00:00 Completed [facility] Influenza Virus Vaccine 2009-05-20 00:00:00 Completed [facility] Influenza Virus Vaccine 2009-05-20 00:00:00 Completed [facility] Influenza Virus Vaccine 2009-05-20 00:00:00 Completed [facility] Influenza Virus Vaccine 2009-05-20 00:00:00 Completed [facility] Influenza Virus Vaccine 2009-05-20 00:00:00 Completed [facility] Influenza Virus Vaccine 2009-05-20 00:00:00 Completed [facility] Influenza Virus Vaccine 2009-05-20 00:00:00 Completed [facility] Influenza Virus Vaccine 2009-05-20 00:00:00 Completed [facility] Influenza Virus Vaccine 2009-05-20 00:00:00 Completed [facility] Influenza Virus Vaccine 2009-05-20 00:00:00 Completed [facility] Influenza Virus Vaccine 2009-05-20 00:00:00 Completed [facility] Influenza Virus Vaccine 2009-05-20 00:00:00 Completed [facility] Influenza Virus Vaccine 2009-05-20 00:00:00 Completed [facility] Influenza Virus Vaccine 2009-05-20 00:00:00 Completed [facility] Influenza Virus Vaccine 2009-05-20 00:00:00 Completed [facility] Influenza Virus Vaccine 2009-05-20 00:00:00 Completed [facility] Influenza Virus Vaccine 2009-05-20 00:00:00 Completed [facility] Influenza Virus Vaccine 2009-05-20 00:00:00 Completed [facility] Influenza Virus Vaccine 2009-05-20 00:00:00 Completed [facility] Influenza Virus Vaccine 2009-05-20 00:00:00 Completed [facility] Influenza Virus Vaccine 2009-05-20 00:00:00 Completed [facility] Influenza Virus Vaccine 2009-05-20 00:00:00 Completed [facility] Influenza Virus Vaccine 2009-05-20 00:00:00 Completed [facility] Influenza Virus Vaccine 2009-05-20 00:00:00 Completed [facility] Influenza Virus Vaccine 2009-05-20 00:00:00 Completed [facility] Influenza Virus Vaccine 2009-05-20 00:00:00 Completed [facility] Influenza Virus Vaccine 2009-05-20 00:00:00 Completed [facility] Influenza Virus Vaccine 2009-05-20 00:00:00 Completed [facility] Influenza Virus Vaccine 2009-05-20 00:00:00 Completed [facility] Influenza Virus Vaccine 2009-05-20 00:00:00 Completed [facility] Influenza Virus Vaccine 2009-05-20 00:00:00 Completed [facility] Influenza Virus Vaccine 2009-05-20 00:00:00 Completed [facility] Influenza Virus Vaccine 2009-05-20 00:00:00 Completed [facility] Influenza Virus Vaccine 2009-05-20 00:00:00 Completed [facility] Influenza Virus Vaccine 2009-05-20 00:00:00 Completed [facility] Influenza Virus Vaccine 2009-05-20 00:00:00 Completed [facility] Influenza Virus Vaccine 2009-05-20 00:00:00 Completed [facility] Influenza Virus Vaccine 2009-05-20 00:00:00 Completed [facility] Influenza Virus Vaccine 2009-05-20 00:00:00 Completed [facility] Influenza Virus Vaccine 2009-05-20 00:00:00 Completed [facility] Influenza Virus Vaccine 2009-05-20 00:00:00 Completed [facility] Influenza Virus Vaccine 2009-05-20 00:00:00 Completed [facility] Influenza Virus Vaccine 2009-05-20 00:00:00 Completed [facility] Influenza Virus Vaccine 2009-05-20 00:00:00 Completed [facility] Influenza Virus Vaccine 2009-05-20 00:00:00 Completed [facility] Influenza Virus Vaccine 2009-05-20 00:00:00 Completed [facility] Influenza Virus Vaccine 2009-05-20 00:00:00 Completed [facility] Influenza Virus Vaccine 2009-05-20 00:00:00 Completed [facility] Influenza Virus Vaccine 2009-05-20 00:00:00 Completed [facility] Influenza Virus Vaccine 2009-05-20 00:00:00 Completed [facility] Influenza Virus Vaccine 2009-05-20 00:00:00 Completed [facility] Influenza Virus Vaccine 2009-05-20 00:00:00 Completed [facility] Influenza Virus Vaccine 2009-05-20 00:00:00 Completed [facility] Influenza Virus Vaccine 2009-05-20 00:00:00 Completed [facility] Influenza Virus Vaccine 2009-05-20 00:00:00 Completed [facility] Influenza Virus Vaccine 2009-05-20 00:00:00 Completed [facility] Influenza Virus Vaccine 2007-06-01 00:00:00 Completed [facility] Influenza Virus Vaccine 2007-06-01 00:00:00 Completed [facility] Influenza Virus Vaccine 2007-06-01 00:00:00 Completed [facility] Influenza Virus Vaccine 2007-06-01 00:00:00 Completed [facility] Influenza Virus Vaccine 2007-06-01 00:00:00 Completed [facility] Influenza Virus Vaccine 2007-06-01 00:00:00 Completed [facility] Influenza Virus Vaccine 2007-06-01 00:00:00 Completed [facility] Influenza Virus Vaccine 2007-06-01 00:00:00 Completed [facility] Influenza Virus Vaccine 2007-06-01 00:00:00 Completed [facility] Influenza Virus Vaccine 2007-06-01 00:00:00 Completed [facility] Influenza Virus Vaccine 2007-06-01 00:00:00 Completed [facility] Influenza Virus Vaccine 2007-06-01 00:00:00 Completed [facility] Influenza Virus Vaccine 2007-06-01 00:00:00 Completed [facility] Influenza Virus Vaccine 2007-06-01 00:00:00 Completed [facility] Influenza Virus Vaccine 2007-06-01 00:00:00 Completed [facility] Influenza Virus Vaccine 2007-06-01 00:00:00 Completed [facility] Influenza Virus Vaccine 2007-06-01 00:00:00 Completed [facility] Influenza Virus Vaccine 2007-06-01 00:00:00 Completed [facility] Influenza Virus Vaccine 2007-06-01 00:00:00 Completed [facility] Influenza Virus Vaccine 2007-06-01 00:00:00 Completed [facility] Influenza Virus Vaccine 2007-06-01 00:00:00 Completed [facility] Influenza Virus Vaccine 2007-06-01 00:00:00 Completed [facility] Influenza Virus Vaccine 2007-06-01 00:00:00 Completed [facility] Influenza Virus Vaccine 2007-06-01 00:00:00 Completed [facility] Influenza Virus Vaccine 2007-06-01 00:00:00 Completed [facility] Influenza Virus Vaccine 2007-06-01 00:00:00 Completed [facility] Influenza Virus Vaccine 2007-06-01 00:00:00 Completed [facility] Influenza Virus Vaccine 2007-06-01 00:00:00 Completed [facility] Influenza Virus Vaccine 2007-06-01 00:00:00 Completed [facility] Influenza Virus Vaccine 2007-06-01 00:00:00 Completed [facility] Influenza Virus Vaccine 2007-06-01 00:00:00 Completed [facility] Influenza Virus Vaccine 2007-06-01 00:00:00 Completed [facility] Influenza Virus Vaccine 2007-06-01 00:00:00 Completed [facility] Influenza Virus Vaccine 2007-06-01 00:00:00 Completed [facility] Influenza Virus Vaccine 2007-06-01 00:00:00 Completed [facility] Influenza Virus Vaccine 2007-06-01 00:00:00 Completed [facility] Influenza Virus Vaccine 2007-06-01 00:00:00 Completed [facility] Influenza Virus Vaccine 2007-06-01 00:00:00 Completed [facility] Influenza Virus Vaccine 2007-06-01 00:00:00 Completed [facility] Influenza Virus Vaccine 2007-06-01 00:00:00 Completed [facility] Influenza Virus Vaccine 2007-06-01 00:00:00 Completed [facility] Influenza Virus Vaccine 2007-06-01 00:00:00 Completed [facility] Influenza Virus Vaccine 2007-06-01 00:00:00 Completed [facility] Influenza Virus Vaccine 2007-06-01 00:00:00 Completed [facility] Influenza Virus Vaccine 2007-06-01 00:00:00 Completed [facility] Influenza Virus Vaccine 2007-06-01 00:00:00 Completed [facility] Influenza Virus Vaccine 2007-06-01 00:00:00 Completed [facility] Influenza Virus Vaccine 2007-06-01 00:00:00 Completed [facility] Influenza Virus Vaccine 2007-06-01 00:00:00 Completed [facility] Influenza Virus Vaccine 2007-06-01 00:00:00 Completed [facility] Influenza Virus Vaccine 2007-06-01 00:00:00 Completed [facility] Influenza Virus Vaccine 2007-06-01 00:00:00 Completed [facility] Influenza Virus Vaccine 2007-06-01 00:00:00 Completed [facility] Influenza Virus Vaccine 2007-06-01 00:00:00 Completed [facility] Influenza Virus Vaccine 2007-06-01 00:00:00 Completed [facility] Influenza Virus Vaccine 2007-06-01 00:00:00 Completed [facility] Influenza Virus Vaccine 2007-06-01 00:00:00 Completed [facility] Influenza Virus Vaccine 2007-06-01 00:00:00 Completed [facility] Influenza Virus Vaccine 2007-06-01 00:00:00 Completed [facility] Influenza Virus Vaccine 2007-06-01 00:00:00 Completed [facility] Influenza Virus Vaccine 2007-06-01 00:00:00 Completed [facility] Influenza Virus Vaccine 2007-06-01 00:00:00 Completed [facility] Influenza Virus Vaccine 2007-06-01 00:00:00 Completed [facility] Influenza Virus Vaccine 2007-06-01 00:00:00 Completed [facility] Influenza Virus Vaccine 2007-06-01 00:00:00 Completed [facility] Influenza Virus Vaccine 2007-06-01 00:00:00 Completed [facility] Influenza Virus Vaccine 2007-06-01 00:00:00 Completed [facility] Influenza Virus Vaccine 2007-06-01 00:00:00 Completed [facility] Influenza Virus Vaccine 2007-06-01 00:00:00 Completed [facility] Influenza Virus Vaccine 2007-06-01 00:00:00 Completed [facility] Influenza Virus Vaccine 2007-06-01 00:00:00 Completed [facility] Influenza Virus Vaccine 2007-06-01 00:00:00 Completed [facility] Influenza Virus Vaccine 2007-06-01 00:00:00 Completed [facility] Influenza Virus Vaccine 2007-06-01 00:00:00 Completed [facility] Influenza Virus Vaccine 2007-06-01 00:00:00 Completed [facility] Influenza Virus Vaccine 2007-06-01 00:00:00 Completed [facility] Influenza Virus Vaccine 2007-06-01 00:00:00 Completed [facility] Influenza Virus Vaccine 2007-06-01 00:00:00 Completed [facility] Influenza Virus Vaccine 2007-06-01 00:00:00 Completed [facility] Influenza Virus Vaccine 2007-06-01 00:00:00 Completed [facility] Influenza Virus Vaccine 2007-06-01 00:00:00 Completed [facility] Influenza Virus Vaccine 2007-06-01 00:00:00 Completed [facility] Influenza Virus Vaccine 2007-06-01 00:00:00 Completed [facility] Influenza Virus Vaccine 2007-06-01 00:00:00 Completed [facility] Influenza Virus Vaccine 2007-06-01 00:00:00 Completed [facility] Influenza Virus Vaccine 2007-06-01 00:00:00 Completed [facility] Influenza Virus Vaccine 2007-06-01 00:00:00 Completed [facility] Influenza Virus Vaccine 2007-06-01 00:00:00 Completed [facility] Influenza Virus Vaccine 2007-06-01 00:00:00 Completed [facility] Influenza Virus Vaccine 2007-06-01 00:00:00 Completed [facility] Influenza Virus Vaccine 2007-06-01 00:00:00 Completed [facility] Influenza Virus Vaccine 2007-06-01 00:00:00 Completed [facility] Influenza Virus Vaccine 2007-06-01 00:00:00 Completed [facility] Influenza Virus Vaccine 2007-06-01 00:00:00 Completed [facility] Influenza Virus Vaccine 2007-06-01 00:00:00 Completed [facility] Influenza Virus Vaccine 2007-06-01 00:00:00 Completed [facility] Influenza Virus Vaccine 2007-06-01 00:00:00 Completed [facility] Influenza Virus Vaccine 2007-06-01 00:00:00 Completed [facility] Influenza Virus Vaccine 2007-06-01 00:00:00 Completed [facility] Influenza Virus Vaccine 2007-06-01 00:00:00 Completed [facility] Influenza Virus Vaccine 2007-06-01 00:00:00 Completed [facility] Influenza Virus Vaccine 2007-06-01 00:00:00 Completed [facility] Influenza Virus Vaccine 2007-06-01 00:00:00 Completed [facility] Influenza Virus Vaccine 2007-06-01 00:00:00 Completed [facility] Influenza Virus Vaccine 2007-06-01 00:00:00 Completed [facility] DTAP 2006-05-24 00:00:00 Completed [facility] Proquad (MMR/VARICELLA) 2006-05-24 00:00:00 Completed [facility] Polio (IPV/OPV) 2006-05-24 00:00:00 Completed [facility] DTAP 2006-05-24 00:00:00 Completed [facility] Proquad (MMR/VARICELLA) 2006-05-24 00:00:00 Completed [facility] Polio (IPV/OPV) 2006-05-24 00:00:00 Completed [facility] DTAP 2006-05-24 00:00:00 Completed [facility] Proquad (MMR/VARICELLA) 2006-05-24 00:00:00 Completed [facility] Polio (IPV/OPV) 2006-05-24 00:00:00 Completed [facility] DTAP 2006-05-24 00:00:00 Completed [facility] Proquad (MMR/VARICELLA) 2006-05-24 00:00:00 Completed [facility] Polio (IPV/OPV) 2006-05-24 00:00:00 Completed [facility] DTAP 2006-05-24 00:00:00 Completed [facility] Proquad (MMR/VARICELLA) 2006-05-24 00:00:00 Completed [facility] Polio (IPV/OPV) 2006-05-24 00:00:00 Completed [facility] DTAP 2006-05-24 00:00:00 Completed [facility] Proquad (MMR/VARICELLA) 2006-05-24 00:00:00 Completed [facility] Polio (IPV/OPV) 2006-05-24 00:00:00 Completed [facility] DTAP 2006-05-24 00:00:00 Completed [facility] Proquad (MMR/VARICELLA) 2006-05-24 00:00:00 Completed [facility] Polio (IPV/OPV) 2006-05-24 00:00:00 Completed [facility] DTAP 2006-05-24 00:00:00 Completed [facility] Proquad (MMR/VARICELLA) 2006-05-24 00:00:00 Completed [facility] Polio (IPV/OPV) 2006-05-24 00:00:00 Completed [facility] DTAP 2006-05-24 00:00:00 Completed [facility] Proquad (MMR/VARICELLA) 2006-05-24 00:00:00 Completed [facility] Polio (IPV/OPV) 2006-05-24 00:00:00 Completed [facility] DTAP 2006-05-24 00:00:00 Completed [facility] Proquad (MMR/VARICELLA) 2006-05-24 00:00:00 Completed [facility] Polio (IPV/OPV) 2006-05-24 00:00:00 Completed [facility] DTAP 2006-05-24 00:00:00 Completed [facility] Proquad (MMR/VARICELLA) 2006-05-24 00:00:00 Completed [facility] Polio (IPV/OPV) 2006-05-24 00:00:00 Completed [facility] DTAP 2006-05-24 00:00:00 Completed [facility] Proquad (MMR/VARICELLA) 2006-05-24 00:00:00 Completed [facility] Polio (IPV/OPV) 2006-05-24 00:00:00 Completed [facility] DTAP 2006-05-24 00:00:00 Completed [facility] Proquad (MMR/VARICELLA) 2006-05-24 00:00:00 Completed [facility] Polio (IPV/OPV) 2006-05-24 00:00:00 Completed [facility] DTAP 2006-05-24 00:00:00 Completed [facility] Proquad (MMR/VARICELLA) 2006-05-24 00:00:00 Completed [facility] Polio (IPV/OPV) 2006-05-24 00:00:00 Completed [facility] DTAP 2006-05-24 00:00:00 Completed [facility] Proquad (MMR/VARICELLA) 2006-05-24 00:00:00 Completed [facility] Polio (IPV/OPV) 2006-05-24 00:00:00 Completed [facility] DTAP 2006-05-24 00:00:00 Completed [facility] Proquad (MMR/VARICELLA) 2006-05-24 00:00:00 Completed [facility] Polio (IPV/OPV) 2006-05-24 00:00:00 Completed [facility] DTAP 2006-05-24 00:00:00 Completed [facility] Proquad (MMR/VARICELLA) 2006-05-24 00:00:00 Completed [facility] Polio (IPV/OPV) 2006-05-24 00:00:00 Completed [facility] DTAP 2006-05-24 00:00:00 Completed [facility] Proquad (MMR/VARICELLA) 2006-05-24 00:00:00 Completed [facility] Polio (IPV/OPV) 2006-05-24 00:00:00 Completed [facility] DTAP 2006-05-24 00:00:00 Completed [facility] Proquad (MMR/VARICELLA) 2006-05-24 00:00:00 Completed [facility] Polio (IPV/OPV) 2006-05-24 00:00:00 Completed [facility] DTAP 2006-05-24 00:00:00 Completed [facility] Proquad (MMR/VARICELLA) 2006-05-24 00:00:00 Completed [facility] Polio (IPV/OPV) 2006-05-24 00:00:00 Completed [facility] DTAP 2006-05-24 00:00:00 Completed [facility] Proquad (MMR/VARICELLA) 2006-05-24 00:00:00 Completed [facility] Polio (IPV/OPV) 2006-05-24 00:00:00 Completed [facility] DTAP 2006-05-24 00:00:00 Completed [facility] Proquad (MMR/VARICELLA) 2006-05-24 00:00:00 Completed [facility] Polio (IPV/OPV) 2006-05-24 00:00:00 Completed [facility] DTAP 2006-05-24 00:00:00 Completed [facility] Proquad (MMR/VARICELLA) 2006-05-24 00:00:00 Completed [facility] Polio (IPV/OPV) 2006-05-24 00:00:00 Completed [facility] DTAP 2006-05-24 00:00:00 Completed [facility] Proquad (MMR/VARICELLA) 2006-05-24 00:00:00 Completed [facility] Polio (IPV/OPV) 2006-05-24 00:00:00 Completed [facility] DTAP 2006-05-24 00:00:00 Completed [facility] Proquad (MMR/VARICELLA) 2006-05-24 00:00:00 Completed [facility] Polio (IPV/OPV) 2006-05-24 00:00:00 Completed [facility] DTAP 2006-05-24 00:00:00 Completed [facility] Proquad (MMR/VARICELLA) 2006-05-24 00:00:00 Completed [facility] Polio (IPV/OPV) 2006-05-24 00:00:00 Completed [facility] DTAP 2006-05-24 00:00:00 Completed [facility] Proquad (MMR/VARICELLA) 2006-05-24 00:00:00 Completed [facility] Polio (IPV/OPV) 2006-05-24 00:00:00 Completed [facility] DTAP 2006-05-24 00:00:00 Completed [facility] Proquad (MMR/VARICELLA) 2006-05-24 00:00:00 Completed [facility] Polio (IPV/OPV) 2006-05-24 00:00:00 Completed [facility] DTAP 2006-05-24 00:00:00 Completed [facility] Proquad (MMR/VARICELLA) 2006-05-24 00:00:00 Completed [facility] Polio (IPV/OPV) 2006-05-24 00:00:00 Completed [facility] DTAP 2006-05-24 00:00:00 Completed [facility] Proquad (MMR/VARICELLA) 2006-05-24 00:00:00 Completed [facility] Polio (IPV/OPV) 2006-05-24 00:00:00 Completed [facility] DTAP 2006-05-24 00:00:00 Completed [facility] Proquad (MMR/VARICELLA) 2006-05-24 00:00:00 Completed [facility] Polio (IPV/OPV) 2006-05-24 00:00:00 Completed [facility] DTAP 2006-05-24 00:00:00 Completed [facility] Proquad (MMR/VARICELLA) 2006-05-24 00:00:00 Completed [facility] Polio (IPV/OPV) 2006-05-24 00:00:00 Completed [facility] DTAP 2006-05-24 00:00:00 Completed [facility] Proquad (MMR/VARICELLA) 2006-05-24 00:00:00 Completed [facility] Polio (IPV/OPV) 2006-05-24 00:00:00 Completed [facility] DTAP 2006-05-24 00:00:00 Completed [facility] Proquad (MMR/VARICELLA) 2006-05-24 00:00:00 Completed [facility] Polio (IPV/OPV) 2006-05-24 00:00:00 Completed [facility] DTAP 2006-05-24 00:00:00 Completed [facility] Proquad (MMR/VARICELLA) 2006-05-24 00:00:00 Completed [facility] Polio (IPV/OPV) 2006-05-24 00:00:00 Completed [facility] DTAP 2006-05-24 00:00:00 Completed [facility] Proquad (MMR/VARICELLA) 2006-05-24 00:00:00 Completed [facility] Polio (IPV/OPV) 2006-05-24 00:00:00 Completed [facility] DTAP 2006-05-24 00:00:00 Completed [facility] Proquad (MMR/VARICELLA) 2006-05-24 00:00:00 Completed [facility] Polio (IPV/OPV) 2006-05-24 00:00:00 Completed [facility] DTAP 2006-05-24 00:00:00 Completed [facility] Proquad (MMR/VARICELLA) 2006-05-24 00:00:00 Completed [facility] Polio (IPV/OPV) 2006-05-24 00:00:00 Completed [facility] DTAP 2006-05-24 00:00:00 Completed [facility] Proquad (MMR/VARICELLA) 2006-05-24 00:00:00 Completed [facility] Polio (IPV/OPV) 2006-05-24 00:00:00 Completed [facility] DTAP 2006-05-24 00:00:00 Completed [facility] Proquad (MMR/VARICELLA) 2006-05-24 00:00:00 Completed [facility] Polio (IPV/OPV) 2006-05-24 00:00:00 Completed [facility] DTAP 2006-05-24 00:00:00 Completed [facility] Proquad (MMR/VARICELLA) 2006-05-24 00:00:00 Completed [facility] Polio (IPV/OPV) 2006-05-24 00:00:00 Completed [facility] DTAP 2006-05-24 00:00:00 Completed [facility] Proquad (MMR/VARICELLA) 2006-05-24 00:00:00 Completed [facility] Polio (IPV/OPV) 2006-05-24 00:00:00 Completed [facility] DTAP 2006-05-24 00:00:00 Completed [facility] Proquad (MMR/VARICELLA) 2006-05-24 00:00:00 Completed [facility] Polio (IPV/OPV) 2006-05-24 00:00:00 Completed [facility] DTAP 2006-05-24 00:00:00 Completed [facility] Proquad (MMR/VARICELLA) 2006-05-24 00:00:00 Completed [facility] Polio (IPV/OPV) 2006-05-24 00:00:00 Completed [facility] DTAP 2006-05-24 00:00:00 Completed [facility] Proquad (MMR/VARICELLA) 2006-05-24 00:00:00 Completed [facility] Polio (IPV/OPV) 2006-05-24 00:00:00 Completed [facility] DTAP 2006-05-24 00:00:00 Completed [facility] Proquad (MMR/VARICELLA) 2006-05-24 00:00:00 Completed [facility] Polio (IPV/OPV) 2006-05-24 00:00:00 Completed [facility] DTAP 2006-05-24 00:00:00 Completed [facility] Proquad (MMR/VARICELLA) 2006-05-24 00:00:00 Completed [facility] Polio (IPV/OPV) 2006-05-24 00:00:00 Completed [facility] DTAP 2006-05-24 00:00:00 Completed [facility] Proquad (MMR/VARICELLA) 2006-05-24 00:00:00 Completed [facility] Polio (IPV/OPV) 2006-05-24 00:00:00 Completed [facility] DTAP 2006-05-24 00:00:00 Completed [facility] Proquad (MMR/VARICELLA) 2006-05-24 00:00:00 Completed [facility] Polio (IPV/OPV) 2006-05-24 00:00:00 Completed [facility] DTAP 2006-05-24 00:00:00 Completed [facility] Proquad (MMR/VARICELLA) 2006-05-24 00:00:00 Completed [facility] Polio (IPV/OPV) 2006-05-24 00:00:00 Completed [facility] DTAP 2006-05-24 00:00:00 Completed [facility] Proquad (MMR/VARICELLA) 2006-05-24 00:00:00 Completed [facility] Polio (IPV/OPV) 2006-05-24 00:00:00 Completed [facility] DTAP 2006-05-24 00:00:00 Completed [facility] Proquad (MMR/VARICELLA) 2006-05-24 00:00:00 Completed [facility] Polio (IPV/OPV) 2006-05-24 00:00:00 Completed [facility] DTAP 2006-05-24 00:00:00 Completed [facility] Proquad (MMR/VARICELLA) 2006-05-24 00:00:00 Completed [facility] Polio (IPV/OPV) 2006-05-24 00:00:00 Completed [facility] DTAP 2006-05-24 00:00:00 Completed [facility] Proquad (MMR/VARICELLA) 2006-05-24 00:00:00 Completed [facility] Polio (IPV/OPV) 2006-05-24 00:00:00 Completed [facility] DTAP 2006-05-24 00:00:00 Completed [facility] Proquad (MMR/VARICELLA) 2006-05-24 00:00:00 Completed [facility] Polio (IPV/OPV) 2006-05-24 00:00:00 Completed [facility] DTAP 2006-05-24 00:00:00 Completed [facility] Proquad (MMR/VARICELLA) 2006-05-24 00:00:00 Completed [facility] Polio (IPV/OPV) 2006-05-24 00:00:00 Completed [facility] DTAP 2006-05-24 00:00:00 Completed [facility] Proquad (MMR/VARICELLA) 2006-05-24 00:00:00 Completed [facility] Polio (IPV/OPV) 2006-05-24 00:00:00 Completed [facility] DTAP 2006-05-24 00:00:00 Completed [facility] Proquad (MMR/VARICELLA) 2006-05-24 00:00:00 Completed [facility] Polio (IPV/OPV) 2006-05-24 00:00:00 Completed [facility] DTAP 2006-05-24 00:00:00 Completed [facility] Proquad (MMR/VARICELLA) 2006-05-24 00:00:00 Completed [facility] Polio (IPV/OPV) 2006-05-24 00:00:00 Completed [facility] DTAP 2006-05-24 00:00:00 Completed [facility] Proquad (MMR/VARICELLA) 2006-05-24 00:00:00 Completed [facility] Polio (IPV/OPV) 2006-05-24 00:00:00 Completed [facility] DTAP 2006-05-24 00:00:00 Completed [facility] Proquad (MMR/VARICELLA) 2006-05-24 00:00:00 Completed [facility] Polio (IPV/OPV) 2006-05-24 00:00:00 Completed [facility] DTAP 2006-05-24 00:00:00 Completed [facility] Proquad (MMR/VARICELLA) 2006-05-24 00:00:00 Completed [facility] Polio (IPV/OPV) 2006-05-24 00:00:00 Completed [facility] DTAP 2006-05-24 00:00:00 Completed [facility] Proquad (MMR/VARICELLA) 2006-05-24 00:00:00 Completed [facility] Polio (IPV/OPV) 2006-05-24 00:00:00 Completed [facility] DTAP 2006-05-24 00:00:00 Completed [facility] Proquad (MMR/VARICELLA) 2006-05-24 00:00:00 Completed [facility] Polio (IPV/OPV) 2006-05-24 00:00:00 Completed [facility] DTAP 2006-05-24 00:00:00 Completed [facility] Proquad (MMR/VARICELLA) 2006-05-24 00:00:00 Completed [facility] Polio (IPV/OPV) 2006-05-24 00:00:00 Completed [facility] DTAP 2006-05-24 00:00:00 Completed [facility] Proquad (MMR/VARICELLA) 2006-05-24 00:00:00 Completed [facility] Polio (IPV/OPV) 2006-05-24 00:00:00 Completed [facility] DTAP 2006-05-24 00:00:00 Completed [facility] Proquad (MMR/VARICELLA) 2006-05-24 00:00:00 Completed [facility] Polio (IPV/OPV) 2006-05-24 00:00:00 Completed [facility] DTAP 2006-05-24 00:00:00 Completed [facility] Proquad (MMR/VARICELLA) 2006-05-24 00:00:00 Completed [facility] Polio (IPV/OPV) 2006-05-24 00:00:00 Completed [facility] DTAP 2006-05-24 00:00:00 Completed [facility] Proquad (MMR/VARICELLA) 2006-05-24 00:00:00 Completed [facility] Polio (IPV/OPV) 2006-05-24 00:00:00 Completed [facility] DTAP 2006-05-24 00:00:00 Completed [facility] Proquad (MMR/VARICELLA) 2006-05-24 00:00:00 Completed [facility] Polio (IPV/OPV) 2006-05-24 00:00:00 Completed [facility] DTAP 2006-05-24 00:00:00 Completed [facility] Proquad (MMR/VARICELLA) 2006-05-24 00:00:00 Completed [facility] Polio (IPV/OPV) 2006-05-24 00:00:00 Completed [facility] DTAP 2006-05-24 00:00:00 Completed [facility] Proquad (MMR/VARICELLA) 2006-05-24 00:00:00 Completed [facility] Polio (IPV/OPV) 2006-05-24 00:00:00 Completed [facility] DTAP 2006-05-24 00:00:00 Completed [facility] Proquad (MMR/VARICELLA) 2006-05-24 00:00:00 Completed [facility] Polio (IPV/OPV) 2006-05-24 00:00:00 Completed [facility] DTAP 2006-05-24 00:00:00 Completed [facility] Proquad (MMR/VARICELLA) 2006-05-24 00:00:00 Completed [facility] Polio (IPV/OPV) 2006-05-24 00:00:00 Completed [facility] DTAP 2006-05-24 00:00:00 Completed [facility] Proquad (MMR/VARICELLA) 2006-05-24 00:00:00 Completed [facility] Polio (IPV/OPV) 2006-05-24 00:00:00 Completed [facility] DTAP 2006-05-24 00:00:00 Completed [facility] Proquad (MMR/VARICELLA) 2006-05-24 00:00:00 Completed [facility] Polio (IPV/OPV) 2006-05-24 00:00:00 Completed [facility] DTAP 2006-05-24 00:00:00 Completed [facility] Proquad (MMR/VARICELLA) 2006-05-24 00:00:00 Completed [facility] Polio (IPV/OPV) 2006-05-24 00:00:00 Completed [facility] DTAP 2006-05-24 00:00:00 Completed [facility] Proquad (MMR/VARICELLA) 2006-05-24 00:00:00 Completed [facility] Polio (IPV/OPV) 2006-05-24 00:00:00 Completed [facility] DTAP 2006-05-24 00:00:00 Completed [facility] Proquad (MMR/VARICELLA) 2006-05-24 00:00:00 Completed [facility] Polio (IPV/OPV) 2006-05-24 00:00:00 Completed [facility] DTAP 2006-05-24 00:00:00 Completed [facility] Proquad (MMR/VARICELLA) 2006-05-24 00:00:00 Completed [facility] Polio (IPV/OPV) 2006-05-24 00:00:00 Completed [facility] DTAP 2006-05-24 00:00:00 Completed [facility] Proquad (MMR/VARICELLA) 2006-05-24 00:00:00 Completed [facility] Polio (IPV/OPV) 2006-05-24 00:00:00 Completed [facility] DTAP 2006-05-24 00:00:00 Completed [facility] Proquad (MMR/VARICELLA) 2006-05-24 00:00:00 Completed [facility] Polio (IPV/OPV) 2006-05-24 00:00:00 Completed [facility] DTAP 2006-05-24 00:00:00 Completed [facility] Proquad (MMR/VARICELLA) 2006-05-24 00:00:00 Completed [facility] Polio (IPV/OPV) 2006-05-24 00:00:00 Completed [facility] DTAP 2006-05-24 00:00:00 Completed [facility] Proquad (MMR/VARICELLA) 2006-05-24 00:00:00 Completed [facility] Polio (IPV/OPV) 2006-05-24 00:00:00 Completed [facility] DTAP 2006-05-24 00:00:00 Completed [facility] Proquad (MMR/VARICELLA) 2006-05-24 00:00:00 Completed [facility] Polio (IPV/OPV) 2006-05-24 00:00:00 Completed [facility] DTAP 2006-05-24 00:00:00 Completed [facility] Proquad (MMR/VARICELLA) 2006-05-24 00:00:00 Completed [facility] Polio (IPV/OPV) 2006-05-24 00:00:00 Completed [facility] DTAP 2006-05-24 00:00:00 Completed [facility] Proquad (MMR/VARICELLA) 2006-05-24 00:00:00 Completed [facility] Polio (IPV/OPV) 2006-05-24 00:00:00 Completed [facility] DTAP 2006-05-24 00:00:00 Completed [facility] Proquad (MMR/VARICELLA) 2006-05-24 00:00:00 Completed [facility] Polio (IPV/OPV) 2006-05-24 00:00:00 Completed [facility] DTAP 2006-05-24 00:00:00 Completed [facility] Proquad (MMR/VARICELLA) 2006-05-24 00:00:00 Completed [facility] Polio (IPV/OPV) 2006-05-24 00:00:00 Completed [facility] DTAP 2006-05-24 00:00:00 Completed [facility] Proquad (MMR/VARICELLA) 2006-05-24 00:00:00 Completed [facility] Polio (IPV/OPV) 2006-05-24 00:00:00 Completed [facility] DTAP 2006-05-24 00:00:00 Completed [facility] Proquad (MMR/VARICELLA) 2006-05-24 00:00:00 Completed [facility] Polio (IPV/OPV) 2006-05-24 00:00:00 Completed [facility] DTAP 2006-05-24 00:00:00 Completed [facility] Proquad (MMR/VARICELLA) 2006-05-24 00:00:00 Completed [facility] Polio (IPV/OPV) 2006-05-24 00:00:00 Completed [facility] DTAP 2006-05-24 00:00:00 Completed [facility] Proquad (MMR/VARICELLA) 2006-05-24 00:00:00 Completed [facility] Polio (IPV/OPV) 2006-05-24 00:00:00 Completed [facility] DTAP 2006-05-24 00:00:00 Completed [facility] Proquad (MMR/VARICELLA) 2006-05-24 00:00:00 Completed [facility] Polio (IPV/OPV) 2006-05-24 00:00:00 Completed [facility] DTAP 2006-05-24 00:00:00 Completed [facility] Proquad (MMR/VARICELLA) 2006-05-24 00:00:00 Completed [facility] Polio (IPV/OPV) 2006-05-24 00:00:00 Completed [facility] DTAP 2006-05-24 00:00:00 Completed [facility] Proquad (MMR/VARICELLA) 2006-05-24 00:00:00 Completed [facility] Polio (IPV/OPV) 2006-05-24 00:00:00 Completed [facility] DTAP 2006-05-24 00:00:00 Completed [facility] Proquad (MMR/VARICELLA) 2006-05-24 00:00:00 Completed [facility] Polio (IPV/OPV) 2006-05-24 00:00:00 Completed [facility] DTAP 2006-05-24 00:00:00 Completed [facility] Proquad (MMR/VARICELLA) 2006-05-24 00:00:00 Completed [facility] Polio (IPV/OPV) 2006-05-24 00:00:00 Completed [facility] DTAP 2006-05-24 00:00:00 Completed [facility] Proquad (MMR/VARICELLA) 2006-05-24 00:00:00 Completed [facility] Polio (IPV/OPV) 2006-05-24 00:00:00 Completed [facility] DTAP 2006-05-24 00:00:00 Completed [facility] Proquad (MMR/VARICELLA) 2006-05-24 00:00:00 Completed [facility] Polio (IPV/OPV) 2006-05-24 00:00:00 Completed [facility] DTAP 2006-05-24 00:00:00 Completed [facility] Proquad (MMR/VARICELLA) 2006-05-24 00:00:00 Completed [facility] Polio (IPV/OPV) 2006-05-24 00:00:00 Completed [facility] DTAP 2006-05-24 00:00:00 Completed [facility] Proquad (MMR/VARICELLA) 2006-05-24 00:00:00 Completed [facility] Polio (IPV/OPV) 2006-05-24 00:00:00 Completed [facility] DTAP 2006-05-24 00:00:00 Completed [facility] Proquad (MMR/VARICELLA) 2006-05-24 00:00:00 Completed [facility] Polio (IPV/OPV) 2006-05-24 00:00:00 Completed [facility] DTAP 2006-05-24 00:00:00 Completed [facility] Proquad (MMR/VARICELLA) 2006-05-24 00:00:00 Completed [facility] Polio (IPV/OPV) 2006-05-24 00:00:00 Completed [facility] DTAP 2006-05-24 00:00:00 Completed [facility] Proquad (MMR/VARICELLA) 2006-05-24 00:00:00 Completed [facility] Polio (IPV/OPV) 2006-05-24 00:00:00 Completed [facility] HEPATITIS A 2005-05-19 00:00:00 Completed [facility] Influenza Virus Vaccine 2005-05-19 00:00:00 Completed [facility] HEPATITIS A 2005-05-19 00:00:00 Completed [facility] Influenza Virus Vaccine 2005-05-19 00:00:00 Completed [facility] HEPATITIS A 2005-05-19 00:00:00 Completed [facility] Influenza Virus Vaccine 2005-05-19 00:00:00 Completed [facility] HEPATITIS A 2005-05-19 00:00:00 Completed [facility] Influenza Virus Vaccine 2005-05-19 00:00:00 Completed [facility] HEPATITIS A 2005-05-19 00:00:00 Completed [facility] Influenza Virus Vaccine 2005-05-19 00:00:00 Completed [facility] HEPATITIS A 2005-05-19 00:00:00 Completed [facility] Influenza Virus Vaccine 2005-05-19 00:00:00 Completed [facility] HEPATITIS A 2005-05-19 00:00:00 Completed [facility] Influenza Virus Vaccine 2005-05-19 00:00:00 Completed [facility] HEPATITIS A 2005-05-19 00:00:00 Completed [facility] Influenza Virus Vaccine 2005-05-19 00:00:00 Completed [facility] HEPATITIS A 2005-05-19 00:00:00 Completed [facility] Influenza Virus Vaccine 2005-05-19 00:00:00 Completed [facility] HEPATITIS A 2005-05-19 00:00:00 Completed [facility] Influenza Virus Vaccine 2005-05-19 00:00:00 Completed [facility] HEPATITIS A 2005-05-19 00:00:00 Completed [facility] Influenza Virus Vaccine 2005-05-19 00:00:00 Completed [facility] HEPATITIS A 2005-05-19 00:00:00 Completed [facility] Influenza Virus Vaccine 2005-05-19 00:00:00 Completed [facility] HEPATITIS A 2005-05-19 00:00:00 Completed [facility] Influenza Virus Vaccine 2005-05-19 00:00:00 Completed [facility] HEPATITIS A 2005-05-19 00:00:00 Completed [facility] Influenza Virus Vaccine 2005-05-19 00:00:00 Completed [facility] HEPATITIS A 2005-05-19 00:00:00 Completed [facility] Influenza Virus Vaccine 2005-05-19 00:00:00 Completed [facility] HEPATITIS A 2005-05-19 00:00:00 Completed [facility] Influenza Virus Vaccine 2005-05-19 00:00:00 Completed [facility] HEPATITIS A 2005-05-19 00:00:00 Completed [facility] Influenza Virus Vaccine 2005-05-19 00:00:00 Completed [facility] HEPATITIS A 2005-05-19 00:00:00 Completed [facility] Influenza Virus Vaccine 2005-05-19 00:00:00 Completed [facility] HEPATITIS A 2005-05-19 00:00:00 Completed [facility] Influenza Virus Vaccine 2005-05-19 00:00:00 Completed [facility] HEPATITIS A 2005-05-19 00:00:00 Completed [facility] Influenza Virus Vaccine 2005-05-19 00:00:00 Completed [facility] HEPATITIS A 2005-05-19 00:00:00 Completed [facility] Influenza Virus Vaccine 2005-05-19 00:00:00 Completed [facility] HEPATITIS A 2005-05-19 00:00:00 Completed [facility] Influenza Virus Vaccine 2005-05-19 00:00:00 Completed [facility] HEPATITIS A 2005-05-19 00:00:00 Completed [facility] Influenza Virus Vaccine 2005-05-19 00:00:00 Completed [facility] HEPATITIS A 2005-05-19 00:00:00 Completed [facility] Influenza Virus Vaccine 2005-05-19 00:00:00 Completed [facility] HEPATITIS A 2005-05-19 00:00:00 Completed [facility] Influenza Virus Vaccine 2005-05-19 00:00:00 Completed [facility] HEPATITIS A 2005-05-19 00:00:00 Completed [facility] Influenza Virus Vaccine 2005-05-19 00:00:00 Completed [facility] HEPATITIS A 2005-05-19 00:00:00 Completed [facility] Influenza Virus Vaccine 2005-05-19 00:00:00 Completed [facility] HEPATITIS A 2005-05-19 00:00:00 Completed [facility] Influenza Virus Vaccine 2005-05-19 00:00:00 Completed [facility] HEPATITIS A 2005-05-19 00:00:00 Completed [facility] Influenza Virus Vaccine 2005-05-19 00:00:00 Completed [facility] HEPATITIS A 2005-05-19 00:00:00 Completed [facility] Influenza Virus Vaccine 2005-05-19 00:00:00 Completed [facility] HEPATITIS A 2005-05-19 00:00:00 Completed [facility] Influenza Virus Vaccine 2005-05-19 00:00:00 Completed [facility] HEPATITIS A 2005-05-19 00:00:00 Completed [facility] Influenza Virus Vaccine 2005-05-19 00:00:00 Completed [facility] HEPATITIS A 2005-05-19 00:00:00 Completed [facility] Influenza Virus Vaccine 2005-05-19 00:00:00 Completed [facility] HEPATITIS A 2005-05-19 00:00:00 Completed [facility] Influenza Virus Vaccine 2005-05-19 00:00:00 Completed [facility] HEPATITIS A 2005-05-19 00:00:00 Completed [facility] Influenza Virus Vaccine 2005-05-19 00:00:00 Completed [facility] HEPATITIS A 2005-05-19 00:00:00 Completed [facility] Influenza Virus Vaccine 2005-05-19 00:00:00 Completed [facility] HEPATITIS A 2005-05-19 00:00:00 Completed [facility] Influenza Virus Vaccine 2005-05-19 00:00:00 Completed [facility] HEPATITIS A 2005-05-19 00:00:00 Completed [facility] Influenza Virus Vaccine 2005-05-19 00:00:00 Completed [facility] HEPATITIS A 2005-05-19 00:00:00 Completed [facility] Influenza Virus Vaccine 2005-05-19 00:00:00 Completed [facility] HEPATITIS A 2005-05-19 00:00:00 Completed [facility] Influenza Virus Vaccine 2005-05-19 00:00:00 Completed [facility] HEPATITIS A 2005-05-19 00:00:00 Completed [facility] Influenza Virus Vaccine 2005-05-19 00:00:00 Completed [facility] HEPATITIS A 2005-05-19 00:00:00 Completed [facility] Influenza Virus Vaccine 2005-05-19 00:00:00 Completed [facility] HEPATITIS A 2005-05-19 00:00:00 Completed [facility] Influenza Virus Vaccine 2005-05-19 00:00:00 Completed [facility] HEPATITIS A 2005-05-19 00:00:00 Completed [facility] Influenza Virus Vaccine 2005-05-19 00:00:00 Completed [facility] HEPATITIS A 2005-05-19 00:00:00 Completed [facility] Influenza Virus Vaccine 2005-05-19 00:00:00 Completed [facility] HEPATITIS A 2005-05-19 00:00:00 Completed [facility] Influenza Virus Vaccine 2005-05-19 00:00:00 Completed [facility] HEPATITIS A 2005-05-19 00:00:00 Completed [facility] Influenza Virus Vaccine 2005-05-19 00:00:00 Completed [facility] HEPATITIS A 2005-05-19 00:00:00 Completed [facility] Influenza Virus Vaccine 2005-05-19 00:00:00 Completed [facility] HEPATITIS A 2005-05-19 00:00:00 Completed [facility] Influenza Virus Vaccine 2005-05-19 00:00:00 Completed [facility] HEPATITIS A 2005-05-19 00:00:00 Completed [facility] Influenza Virus Vaccine 2005-05-19 00:00:00 Completed [facility] HEPATITIS A 2005-05-19 00:00:00 Completed [facility] Influenza Virus Vaccine 2005-05-19 00:00:00 Completed [facility] HEPATITIS A 2005-05-19 00:00:00 Completed [facility] Influenza Virus Vaccine 2005-05-19 00:00:00 Completed [facility] HEPATITIS A 2005-05-19 00:00:00 Completed [facility] Influenza Virus Vaccine 2005-05-19 00:00:00 Completed [facility] HEPATITIS A 2005-05-19 00:00:00 Completed [facility] Influenza Virus Vaccine 2005-05-19 00:00:00 Completed [facility] HEPATITIS A 2005-05-19 00:00:00 Completed [facility] Influenza Virus Vaccine 2005-05-19 00:00:00 Completed [facility] HEPATITIS A 2005-05-19 00:00:00 Completed [facility] Influenza Virus Vaccine 2005-05-19 00:00:00 Completed [facility] HEPATITIS A 2005-05-19 00:00:00 Completed [facility] Influenza Virus Vaccine 2005-05-19 00:00:00 Completed [facility] HEPATITIS A 2005-05-19 00:00:00 Completed [facility] Influenza Virus Vaccine 2005-05-19 00:00:00 Completed [facility] HEPATITIS A 2005-05-19 00:00:00 Completed [facility] Influenza Virus Vaccine 2005-05-19 00:00:00 Completed [facility] HEPATITIS A 2005-05-19 00:00:00 Completed [facility] Influenza Virus Vaccine 2005-05-19 00:00:00 Completed [facility] HEPATITIS A 2005-05-19 00:00:00 Completed [facility] Influenza Virus Vaccine 2005-05-19 00:00:00 Completed [facility] HEPATITIS A 2005-05-19 00:00:00 Completed [facility] Influenza Virus Vaccine 2005-05-19 00:00:00 Completed [facility] HEPATITIS A 2005-05-19 00:00:00 Completed [facility] Influenza Virus Vaccine 2005-05-19 00:00:00 Completed [facility] HEPATITIS A 2005-05-19 00:00:00 Completed [facility] Influenza Virus Vaccine 2005-05-19 00:00:00 Completed [facility] HEPATITIS A 2005-05-19 00:00:00 Completed [facility] Influenza Virus Vaccine 2005-05-19 00:00:00 Completed [facility] HEPATITIS A 2005-05-19 00:00:00 Completed [facility] Influenza Virus Vaccine 2005-05-19 00:00:00 Completed [facility] HEPATITIS A 2005-05-19 00:00:00 Completed [facility] Influenza Virus Vaccine 2005-05-19 00:00:00 Completed [facility] HEPATITIS A 2005-05-19 00:00:00 Completed [facility] Influenza Virus Vaccine 2005-05-19 00:00:00 Completed [facility] HEPATITIS A 2005-05-19 00:00:00 Completed [facility] Influenza Virus Vaccine 2005-05-19 00:00:00 Completed [facility] HEPATITIS A 2005-05-19 00:00:00 Completed [facility] Influenza Virus Vaccine 2005-05-19 00:00:00 Completed [facility] HEPATITIS A 2005-05-19 00:00:00 Completed [facility] Influenza Virus Vaccine 2005-05-19 00:00:00 Completed [facility] HEPATITIS A 2005-05-19 00:00:00 Completed [facility] Influenza Virus Vaccine 2005-05-19 00:00:00 Completed [facility] HEPATITIS A 2005-05-19 00:00:00 Completed [facility] Influenza Virus Vaccine 2005-05-19 00:00:00 Completed [facility] HEPATITIS A 2005-05-19 00:00:00 Completed [facility] Influenza Virus Vaccine 2005-05-19 00:00:00 Completed [facility] HEPATITIS A 2005-05-19 00:00:00 Completed [facility] Influenza Virus Vaccine 2005-05-19 00:00:00 Completed [facility] HEPATITIS A 2005-05-19 00:00:00 Completed [facility] Influenza Virus Vaccine 2005-05-19 00:00:00 Completed [facility] HEPATITIS A 2005-05-19 00:00:00 Completed [facility] Influenza Virus Vaccine 2005-05-19 00:00:00 Completed [facility] HEPATITIS A 2005-05-19 00:00:00 Completed [facility] Influenza Virus Vaccine 2005-05-19 00:00:00 Completed [facility] HEPATITIS A 2005-05-19 00:00:00 Completed [facility] Influenza Virus Vaccine 2005-05-19 00:00:00 Completed [facility] HEPATITIS A 2005-05-19 00:00:00 Completed [facility] Influenza Virus Vaccine 2005-05-19 00:00:00 Completed [facility] HEPATITIS A 2005-05-19 00:00:00 Completed [facility] [facility] Influenza Virus Vaccine 2005-05-19 00:00:00 Completed [facility] HEPATITIS A 2005-05-19 00:00:00 Completed [facility] Influenza Virus Vaccine 2005-05-19 00:00:00 Completed [facility] HEPATITIS A 2005-05-19 00:00:00 Completed [facility] Influenza Virus Vaccine 2005-05-19 00:00:00 Completed [facility] HEPATITIS A 2005-05-19 00:00:00 Completed [facility] Influenza Virus Vaccine 2005-05-19 00:00:00 Completed [facility] HEPATITIS A 2005-05-19 00:00:00 Completed [facility] Influenza Virus Vaccine 2005-05-19 00:00:00 Completed [facility] HEPATITIS A 2005-05-19 00:00:00 Completed [facility] Influenza Virus Vaccine 2005-05-19 00:00:00 Completed [facility] HEPATITIS A 2005-05-19 00:00:00 Completed [facility] Influenza Virus Vaccine 2005-05-19 00:00:00 Completed [facility] HEPATITIS A 2005-05-19 00:00:00 Completed [facility] Influenza Virus Vaccine 2005-05-19 00:00:00 Completed [facility] HEPATITIS A 2005-05-19 00:00:00 Completed [facility] Influenza Virus Vaccine 2005-05-19 00:00:00 Completed [facility] HEPATITIS A 2005-05-19 00:00:00 Completed [facility] Influenza Virus Vaccine 2005-05-19 00:00:00 Completed [facility] HEPATITIS A 2005-05-19 00:00:00 Completed [facility] Influenza Virus Vaccine 2005-05-19 00:00:00 Completed [facility] HEPATITIS A 2005-05-19 00:00:00 Completed [facility] Influenza Virus Vaccine 2005-05-19 00:00:00 Completed [facility] HEPATITIS A 2005-05-19 00:00:00 Completed [facility] Influenza Virus Vaccine 2005-05-19 00:00:00 Completed [facility] HEPATITIS A 2005-05-19 00:00:00 Completed [facility] Influenza Virus Vaccine 2005-05-19 00:00:00 Completed [facility] HEPATITIS A 2005-05-19 00:00:00 Completed [facility] Influenza Virus Vaccine 2005-05-19 00:00:00 Completed [facility] HEPATITIS A 2005-05-19 00:00:00 Completed [facility] Influenza Virus Vaccine 2005-05-19 00:00:00 Completed [facility] HEPATITIS A 2005-05-19 00:00:00 Completed [facility] Influenza Virus Vaccine 2005-05-19 00:00:00 Completed [facility] HEPATITIS A 2005-05-19 00:00:00 Completed [facility] Influenza Virus Vaccine 2005-05-19 00:00:00 Completed [facility] HEPATITIS A 2005-05-19 00:00:00 Completed [facility] Influenza Virus Vaccine 2005-05-19 00:00:00 Completed [facility] HEPATITIS A 2005-05-19 00:00:00 Completed [facility] Influenza Virus Vaccine 2005-05-19 00:00:00 Completed [facility] HEPATITIS A 2005-05-19 00:00:00 Completed [facility] Influenza Virus Vaccine 2005-05-19 00:00:00 Completed [facility] HEPATITIS A 2005-05-19 00:00:00 Completed [facility] Influenza Virus Vaccine 2005-05-19 00:00:00 Completed [facility] HEPATITIS A 2005-05-19 00:00:00 Completed [facility] Influenza Virus Vaccine 2005-05-19 00:00:00 Completed [facility] HEPATITIS A 2005-05-19 00:00:00 Completed [facility] Influenza Virus Vaccine 2005-05-19 00:00:00 Completed [facility] HEPATITIS A 2005-05-19 00:00:00 Completed [facility] Influenza Virus Vaccine 2005-05-19 00:00:00 Completed [facility] HEPATITIS A 2004-05-17 00:00:00 Completed [facility] HEPATITIS A 2004-05-17 00:00:00 Completed [facility] HEPATITIS A 2004-05-17 00:00:00 Completed [facility] HEPATITIS A 2004-05-17 00:00:00 Completed [facility] HEPATITIS A 2004-05-17 00:00:00 Completed [facility] HEPATITIS A 2004-05-17 00:00:00 Completed [facility] HEPATITIS A 2004-05-17 00:00:00 Completed [facility] HEPATITIS A 2004-05-17 00:00:00 Completed [facility] HEPATITIS A 2004-05-17 00:00:00 Completed [facility] HEPATITIS A 2004-05-17 00:00:00 Completed [facility] HEPATITIS A 2004-05-17 00:00:00 Completed [facility] HEPATITIS A 2004-05-17 00:00:00 Completed [facility] HEPATITIS A 2004-05-17 00:00:00 Completed [facility] HEPATITIS A 2004-05-17 00:00:00 Completed [facility] HEPATITIS A 2004-05-17 00:00:00 Completed [facility] HEPATITIS A 2004-05-17 00:00:00 Completed [facility] HEPATITIS A 2004-05-17 00:00:00 Completed [facility] HEPATITIS A 2004-05-17 00:00:00 Completed [facility] HEPATITIS A 2004-05-17 00:00:00 Completed [facility] HEPATITIS A 2004-05-17 00:00:00 Completed [facility] HEPATITIS A 2004-05-17 00:00:00 Completed [facility] HEPATITIS A 2004-05-17 00:00:00 Completed [facility] HEPATITIS A 2004-05-17 00:00:00 Completed [facility] HEPATITIS A 2004-05-17 00:00:00 Completed [facility] HEPATITIS A 2004-05-17 00:00:00 Completed [facility] HEPATITIS A 2004-05-17 00:00:00 Completed [facility] HEPATITIS A 2004-05-17 00:00:00 Completed [facility] HEPATITIS A 2004-05-17 00:00:00 Completed [facility] HEPATITIS A 2004-05-17 00:00:00 Completed [facility] HEPATITIS A 2004-05-17 00:00:00 Completed [facility] HEPATITIS A 2004-05-17 00:00:00 Completed [facility] HEPATITIS A 2004-05-17 00:00:00 Completed [facility] HEPATITIS A 2004-05-17 00:00:00 Completed [facility] HEPATITIS A 2004-05-17 00:00:00 Completed [facility] HEPATITIS A 2004-05-17 00:00:00 Completed [facility] HEPATITIS A 2004-05-17 00:00:00 Completed [facility] HEPATITIS A 2004-05-17 00:00:00 Completed [facility] HEPATITIS A 2004-05-17 00:00:00 Completed [facility] HEPATITIS A 2004-05-17 00:00:00 Completed [facility] HEPATITIS A 2004-05-17 00:00:00 Completed [facility] HEPATITIS A 2004-05-17 00:00:00 Completed [facility] HEPATITIS A 2004-05-17 00:00:00 Completed [facility] HEPATITIS A 2004-05-17 00:00:00 Completed [facility] HEPATITIS A 2004-05-17 00:00:00 Completed [facility] HEPATITIS A 2004-05-17 00:00:00 Completed [facility] HEPATITIS A 2004-05-17 00:00:00 Completed [facility] HEPATITIS A 2004-05-17 00:00:00 Completed [facility] HEPATITIS A 2004-05-17 00:00:00 Completed [facility] HEPATITIS A 2004-05-17 00:00:00 Completed [facility] HEPATITIS A 2004-05-17 00:00:00 Completed [facility] HEPATITIS A 2004-05-17 00:00:00 Completed [facility] HEPATITIS A 2004-05-17 00:00:00 Completed [facility] HEPATITIS A 2004-05-17 00:00:00 Completed [facility] HEPATITIS A 2004-05-17 00:00:00 Completed [facility] HEPATITIS A 2004-05-17 00:00:00 Completed [facility] HEPATITIS A 2004-05-17 00:00:00 Completed [facility] HEPATITIS A 2004-05-17 00:00:00 Completed [facility] HEPATITIS A 2004-05-17 00:00:00 Completed [facility] HEPATITIS A 2004-05-17 00:00:00 Completed [facility] HEPATITIS A 2004-05-17 00:00:00 Completed [facility] HEPATITIS A 2004-05-17 00:00:00 Completed [facility] HEPATITIS A 2004-05-17 00:00:00 Completed [facility] HEPATITIS A 2004-05-17 00:00:00 Completed [facility] HEPATITIS A 2004-05-17 00:00:00 Completed [facility] HEPATITIS A 2004-05-17 00:00:00 Completed [facility] HEPATITIS A 2004-05-17 00:00:00 Completed [facility] HEPATITIS A 2004-05-17 00:00:00 Completed [facility] HEPATITIS A 2004-05-17 00:00:00 Completed [facility] HEPATITIS A 2004-05-17 00:00:00 Completed [facility] HEPATITIS A 2004-05-17 00:00:00 Completed [facility] HEPATITIS A 2004-05-17 00:00:00 Completed [facility] HEPATITIS A 2004-05-17 00:00:00 Completed [facility] HEPATITIS A 2004-05-17 00:00:00 Completed [facility] HEPATITIS A 2004-05-17 00:00:00 Completed [facility] HEPATITIS A 2004-05-17 00:00:00 Completed [facility] HEPATITIS A 2004-05-17 00:00:00 Completed [facility] HEPATITIS A 2004-05-17 00:00:00 Completed [facility] HEPATITIS A 2004-05-17 00:00:00 Completed [facility] HEPATITIS A 2004-05-17 00:00:00 Completed [facility] HEPATITIS A 2004-05-17 00:00:00 Completed [facility] HEPATITIS A 2004-05-17 00:00:00 Completed [facility] HEPATITIS A 2004-05-17 00:00:00 Completed [facility] HEPATITIS A 2004-05-17 00:00:00 Completed [facility] HEPATITIS A 2004-05-17 00:00:00 Completed [facility] HEPATITIS A 2004-05-17 00:00:00 Completed [facility] HEPATITIS A 2004-05-17 00:00:00 Completed [facility] HEPATITIS A 2004-05-17 00:00:00 Completed [facility] HEPATITIS A 2004-05-17 00:00:00 Completed [facility] HEPATITIS A 2004-05-17 00:00:00 Completed [facility] HEPATITIS A 2004-05-17 00:00:00 Completed [facility] HEPATITIS A 2004-05-17 00:00:00 Completed [facility] HEPATITIS A 2004-05-17 00:00:00 Completed [facility] HEPATITIS A 2004-05-17 00:00:00 Completed [facility] HEPATITIS A 2004-05-17 00:00:00 Completed [facility] HEPATITIS A 2004-05-17 00:00:00 Completed [facility] HEPATITIS A 2004-05-17 00:00:00 Completed [facility] HEPATITIS A 2004-05-17 00:00:00 Completed [facility] HEPATITIS A 2004-05-17 00:00:00 Completed [facility] HEPATITIS A 2004-05-17 00:00:00 Completed [facility] HEPATITIS A 2004-05-17 00:00:00 Completed [facility] HEPATITIS A 2004-05-17 00:00:00 Completed [facility] HEPATITIS A 2004-05-17 00:00:00 Completed [facility] HEPATITIS A 2004-05-17 00:00:00 Completed [facility] HEPATITIS A 2004-05-17 00:00:00 Completed [facility] HEPATITIS A 2004-05-17 00:00:00 Completed [facility] Polio (IPV/OPV) 2003-08-21 00:00:00 Completed [facility] Polio (IPV/OPV) 2003-08-21 00:00:00 Completed [facility] Polio (IPV/OPV) 2003-08-21 00:00:00 Completed [facility] Polio (IPV/OPV) 2003-08-21 00:00:00 Completed [facility] Polio (IPV/OPV) 2003-08-21 00:00:00 Completed [facility] Polio (IPV/OPV) 2003-08-21 00:00:00 Completed [facility] Polio (IPV/OPV) 2003-08-21 00:00:00 Completed [facility] Polio (IPV/OPV) 2003-08-21 00:00:00 Completed [facility] Polio (IPV/OPV) 2003-08-21 00:00:00 Completed [facility] Polio (IPV/OPV) 2003-08-21 00:00:00 Completed [facility] Polio (IPV/OPV) 2003-08-21 00:00:00 Completed [facility] Polio (IPV/OPV) 2003-08-21 00:00:00 Completed [facility] Polio (IPV/OPV) 2003-08-21 00:00:00 Completed [facility] Polio (IPV/OPV) 2003-08-21 00:00:00 Completed [facility] Polio (IPV/OPV) 2003-08-21 00:00:00 Completed [facility] Polio (IPV/OPV) 2003-08-21 00:00:00 Completed [facility] Polio (IPV/OPV) 2003-08-21 00:00:00 Completed [facility] Polio (IPV/OPV) 2003-08-21 00:00:00 Completed [facility] Polio (IPV/OPV) 2003-08-21 00:00:00 Completed [facility] Polio (IPV/OPV) 2003-08-21 00:00:00 Completed [facility] Polio (IPV/OPV) 2003-08-21 00:00:00 Completed [facility] Polio (IPV/OPV) 2003-08-21 00:00:00 Completed [facility] Polio (IPV/OPV) 2003-08-21 00:00:00 Completed [facility] Polio (IPV/OPV) 2003-08-21 00:00:00 Completed [facility] Polio (IPV/OPV) 2003-08-21 00:00:00 Completed [facility] Polio (IPV/OPV) 2003-08-21 00:00:00 Completed [facility] Polio (IPV/OPV) 2003-08-21 00:00:00 Completed [facility] Polio (IPV/OPV) 2003-08-21 00:00:00 Completed [facility] Polio (IPV/OPV) 2003-08-21 00:00:00 Completed [facility] Polio (IPV/OPV) 2003-08-21 00:00:00 Completed [facility] Polio (IPV/OPV) 2003-08-21 00:00:00 Completed [facility] Polio (IPV/OPV) 2003-08-21 00:00:00 Completed [facility] Polio (IPV/OPV) 2003-08-21 00:00:00 Completed [facility] Polio (IPV/OPV) 2003-08-21 00:00:00 Completed [facility] Polio (IPV/OPV) 2003-08-21 00:00:00 Completed [facility] Polio (IPV/OPV) 2003-08-21 00:00:00 Completed [facility] Polio (IPV/OPV) 2003-08-21 00:00:00 Completed [facility] Polio (IPV/OPV) 2003-08-21 00:00:00 Completed [facility] Polio (IPV/OPV) 2003-08-21 00:00:00 Completed [facility] Polio (IPV/OPV) 2003-08-21 00:00:00 Completed [facility] Polio (IPV/OPV) 2003-08-21 00:00:00 Completed [facility] Polio (IPV/OPV) 2003-08-21 00:00:00 Completed [facility] Polio (IPV/OPV) 2003-08-21 00:00:00 Completed [facility] Polio (IPV/OPV) 2003-08-21 00:00:00 Completed [facility] Polio (IPV/OPV) 2003-08-21 00:00:00 Completed [facility] Polio (IPV/OPV) 2003-08-21 00:00:00 Completed [facility] Polio (IPV/OPV) 2003-08-21 00:00:00 Completed [facility] Polio (IPV/OPV) 2003-08-21 00:00:00 Completed [facility] Polio (IPV/OPV) 2003-08-21 00:00:00 Completed [facility] Polio (IPV/OPV) 2003-08-21 00:00:00 Completed [facility] Polio (IPV/OPV) 2003-08-21 00:00:00 Completed [facility] Polio (IPV/OPV) 2003-08-21 00:00:00 Completed [facility] Polio (IPV/OPV) 2003-08-21 00:00:00 Completed [facility] Polio (IPV/OPV) 2003-08-21 00:00:00 Completed [facility] Polio (IPV/OPV) 2003-08-21 00:00:00 Completed [facility] Polio (IPV/OPV) 2003-08-21 00:00:00 Completed [facility] Polio (IPV/OPV) 2003-08-21 00:00:00 Completed [facility] Polio (IPV/OPV) 2003-08-21 00:00:00 Completed [facility] Polio (IPV/OPV) 2003-08-21 00:00:00 Completed [facility] Polio (IPV/OPV) 2003-08-21 00:00:00 Completed [facility] Polio (IPV/OPV) 2003-08-21 00:00:00 Completed [facility] Polio (IPV/OPV) 2003-08-21 00:00:00 Completed [facility] Polio (IPV/OPV) 2003-08-21 00:00:00 Completed [facility] Polio (IPV/OPV) 2003-08-21 00:00:00 Completed [facility] Polio (IPV/OPV) 2003-08-21 00:00:00 Completed [facility] Polio (IPV/OPV) 2003-08-21 00:00:00 Completed [facility] Polio (IPV/OPV) 2003-08-21 00:00:00 Completed [facility] Polio (IPV/OPV) 2003-08-21 00:00:00 Completed [facility] Polio (IPV/OPV) 2003-08-21 00:00:00 Completed [facility] Polio (IPV/OPV) 2003-08-21 00:00:00 Completed [facility] Polio (IPV/OPV) 2003-08-21 00:00:00 Completed [facility] Polio (IPV/OPV) 2003-08-21 00:00:00 Completed [facility] Polio (IPV/OPV) 2003-08-21 00:00:00 Completed [facility] Polio (IPV/OPV) 2003-08-21 00:00:00 Completed [facility] Polio (IPV/OPV) 2003-08-21 00:00:00 Completed [facility] Polio (IPV/OPV) 2003-08-21 00:00:00 Completed [facility] Polio (IPV/OPV) 2003-08-21 00:00:00 Completed [facility] HIB 4 Dose Schedule 2003-05-22 00:00:00 Completed [facility] MMR 2003-05-22 00:00:00 Completed [facility] Pneumococcal 7 Conjugate, PCV7 (Prevnar7) 2003-05-22 00:00:00 Completed [facility] Varicella (varivax)(chicken pox) 2003-05-22 00:00:00 Completed [facility] HIB 4 Dose Schedule 2003-05-22 00:00:00 Completed [facility] MMR 2003-05-22 00:00:00 Completed [facility] Pneumococcal 7 Conjugate, PCV7 (Prevnar7) 2003-05-22 00:00:00 Completed [facility] Varicella (varivax)(chicken pox) 2003-05-22 00:00:00 Completed [facility] HIB 4 Dose Schedule 2003-05-22 00:00:00 Completed [facility] MMR 2003-05-22 00:00:00 Completed [facility] Pneumococcal 7 Conjugate, PCV7 (Prevnar7) 2003-05-22 00:00:00 Completed [facility] Varicella (varivax)(chicken pox) 2003-05-22 00:00:00 Completed [facility] HIB 4 Dose Schedule 2003-05-22 00:00:00 Completed [facility] MMR 2003-05-22 00:00:00 Completed [facility] Pneumococcal 7 Conjugate, PCV7 (Prevnar7) 2003-05-22 00:00:00 Completed [facility] Varicella (varivax)(chicken pox) 2003-05-22 00:00:00 Completed [facility] HIB 4 Dose Schedule 2003-05-22 00:00:00 Completed [facility] MMR 2003-05-22 00:00:00 Completed [facility] Pneumococcal 7 Conjugate, PCV7 (Prevnar7) 2003-05-22 00:00:00 Completed [facility] Varicella (varivax)(chicken pox) 2003-05-22 00:00:00 Completed [facility] HIB 4 Dose Schedule 2003-05-22 00:00:00 Completed [facility] MMR 2003-05-22 00:00:00 Completed [facility] Pneumococcal 7 Conjugate, PCV7 (Prevnar7) 2003-05-22 00:00:00 Completed [facility] Varicella (varivax)(chicken pox) 2003-05-22 00:00:00 Completed [facility] HIB 4 Dose Schedule 2003-05-22 00:00:00 Completed [facility] MMR 2003-05-22 00:00:00 Completed [facility] Pneumococcal 7 Conjugate, PCV7 (Prevnar7) 2003-05-22 00:00:00 Completed [facility] Varicella (varivax)(chicken pox) 2003-05-22 00:00:00 Completed [facility] HIB 4 Dose Schedule 2003-05-22 00:00:00 Completed [facility] MMR 2003-05-22 00:00:00 Completed [facility] Pneumococcal 7 Conjugate, PCV7 (Prevnar7) 2003-05-22 00:00:00 Completed [facility] Varicella (varivax)(chicken pox) 2003-05-22 00:00:00 Completed [facility] HIB 4 Dose Schedule 2003-05-22 00:00:00 Completed [facility] MMR 2003-05-22 00:00:00 Completed [facility] Pneumococcal 7 Conjugate, PCV7 (Prevnar7) 2003-05-22 00:00:00 Completed [facility] Varicella (varivax)(chicken pox) 2003-05-22 00:00:00 Completed [facility] HIB 4 Dose Schedule 2003-05-22 00:00:00 Completed [facility] MMR 2003-05-22 00:00:00 Completed [facility] Pneumococcal 7 Conjugate, PCV7 (Prevnar7) 2003-05-22 00:00:00 Completed [facility] Varicella (varivax)(chicken pox) 2003-05-22 00:00:00 Completed [facility] HIB 4 Dose Schedule 2003-05-22 00:00:00 Completed [facility] MMR 2003-05-22 00:00:00 Completed [facility] Pneumococcal 7 Conjugate, PCV7 (Prevnar7) 2003-05-22 00:00:00 Completed [facility] Varicella (varivax)(chicken pox) 2003-05-22 00:00:00 Completed [facility] HIB 4 Dose Schedule 2003-05-22 00:00:00 Completed [facility] MMR 2003-05-22 00:00:00 Completed [facility] Pneumococcal 7 Conjugate, PCV7 (Prevnar7) 2003-05-22 00:00:00 Completed [facility] Varicella (varivax)(chicken pox) 2003-05-22 00:00:00 Completed [facility] HIB 4 Dose Schedule 2003-05-22 00:00:00 Completed [facility] MMR 2003-05-22 00:00:00 Completed [facility] Pneumococcal 7 Conjugate, PCV7 (Prevnar7) 2003-05-22 00:00:00 Completed [facility] Varicella (varivax)(chicken pox) 2003-05-22 00:00:00 Completed [facility] HIB 4 Dose Schedule 2003-05-22 00:00:00 Completed [facility] MMR 2003-05-22 00:00:00 Completed [facility] Pneumococcal 7 Conjugate, PCV7 (Prevnar7) 2003-05-22 00:00:00 Completed [facility] Varicella (varivax)(chicken pox) 2003-05-22 00:00:00 Completed [facility] HIB 4 Dose Schedule 2003-05-22 00:00:00 Completed [facility] MMR 2003-05-22 00:00:00 Completed [facility] Pneumococcal 7 Conjugate, PCV7 (Prevnar7) 2003-05-22 00:00:00 Completed [facility] Varicella (varivax)(chicken pox) 2003-05-22 00:00:00 Completed [facility] HIB 4 Dose Schedule 2003-05-22 00:00:00 Completed [facility] MMR 2003-05-22 00:00:00 Completed [facility] Pneumococcal 7 Conjugate, PCV7 (Prevnar7) 2003-05-22 00:00:00 Completed [facility] Varicella (varivax)(chicken pox) 2003-05-22 00:00:00 Completed [facility] HIB 4 Dose Schedule 2003-05-22 00:00:00 Completed [facility] MMR 2003-05-22 00:00:00 Completed [facility] Pneumococcal 7 Conjugate, PCV7 (Prevnar7) 2003-05-22 00:00:00 Completed [facility] Varicella (varivax)(chicken pox) 2003-05-22 00:00:00 Completed [facility] HIB 4 Dose Schedule 2003-05-22 00:00:00 Completed [facility] MMR 2003-05-22 00:00:00 Completed [facility] Pneumococcal 7 Conjugate, PCV7 (Prevnar7) 2003-05-22 00:00:00 Completed [facility] Varicella (varivax)(chicken pox) 2003-05-22 00:00:00 Completed [facility] HIB 4 Dose Schedule 2003-05-22 00:00:00 Completed [facility] MMR 2003-05-22 00:00:00 Completed [facility] Pneumococcal 7 Conjugate, PCV7 (Prevnar7) 2003-05-22 00:00:00 Completed [facility] Varicella (varivax)(chicken pox) 2003-05-22 00:00:00 Completed [facility] HIB 4 Dose Schedule 2003-05-22 00:00:00 Completed [facility] MMR 2003-05-22 00:00:00 Completed [facility] Pneumococcal 7 Conjugate, PCV7 (Prevnar7) 2003-05-22 00:00:00 Completed [facility] Varicella (varivax)(chicken pox) 2003-05-22 00:00:00 Completed [facility] HIB 4 Dose Schedule 2003-05-22 00:00:00 Completed [facility] MMR 2003-05-22 00:00:00 Completed [facility] Pneumococcal 7 Conjugate, PCV7 (Prevnar7) 2003-05-22 00:00:00 Completed [facility] Varicella (varivax)(chicken pox) 2003-05-22 00:00:00 Completed [facility] HIB 4 Dose Schedule 2003-05-22 00:00:00 Completed [facility] MMR 2003-05-22 00:00:00 Completed [facility] Pneumococcal 7 Conjugate, PCV7 (Prevnar7) 2003-05-22 00:00:00 Completed [facility] Varicella (varivax)(chicken pox) 2003-05-22 00:00:00 Completed [facility] HIB 4 Dose Schedule 2003-05-22 00:00:00 Completed [facility] MMR 2003-05-22 00:00:00 Completed [facility] Pneumococcal 7 Conjugate, PCV7 (Prevnar7) 2003-05-22 00:00:00 Completed [facility] Varicella (varivax)(chicken pox) 2003-05-22 00:00:00 Completed [facility] HIB 4 Dose Schedule 2003-05-22 00:00:00 Completed [facility] MMR 2003-05-22 00:00:00 Completed [facility] Pneumococcal 7 Conjugate, PCV7 (Prevnar7) 2003-05-22 00:00:00 Completed [facility] Varicella (varivax)(chicken pox) 2003-05-22 00:00:00 Completed [facility] HIB 4 Dose Schedule 2003-05-22 00:00:00 Completed [facility] MMR 2003-05-22 00:00:00 Completed [facility] Pneumococcal 7 Conjugate, PCV7 (Prevnar7) 2003-05-22 00:00:00 Completed [facility] Varicella (varivax)(chicken pox) 2003-05-22 00:00:00 Completed [facility] HIB 4 Dose Schedule 2003-05-22 00:00:00 Completed [facility] MMR 2003-05-22 00:00:00 Completed [facility] Pneumococcal 7 Conjugate, PCV7 (Prevnar7) 2003-05-22 00:00:00 Completed [facility] Varicella (varivax)(chicken pox) 2003-05-22 00:00:00 Completed [facility] HIB 4 Dose Schedule 2003-05-22 00:00:00 Completed [facility] MMR 2003-05-22 00:00:00 Completed [facility] Pneumococcal 7 Conjugate, PCV7 (Prevnar7) 2003-05-22 00:00:00 Completed [facility] Varicella (varivax)(chicken pox) 2003-05-22 00:00:00 Completed [facility] HIB 4 Dose Schedule 2003-05-22 00:00:00 Completed [facility] MMR 2003-05-22 00:00:00 Completed [facility] Pneumococcal 7 Conjugate, PCV7 (Prevnar7) 2003-05-22 00:00:00 Completed [facility] Varicella (varivax)(chicken pox) 2003-05-22 00:00:00 Completed [facility] HIB 4 Dose Schedule 2003-05-22 00:00:00 Completed [facility] MMR 2003-05-22 00:00:00 Completed [facility] Pneumococcal 7 Conjugate, PCV7 (Prevnar7) 2003-05-22 00:00:00 Completed [facility] Varicella (varivax)(chicken pox) 2003-05-22 00:00:00 Completed [facility] HIB 4 Dose Schedule 2003-05-22 00:00:00 Completed [facility] MMR 2003-05-22 00:00:00 Completed [facility] Pneumococcal 7 Conjugate, PCV7 (Prevnar7) 2003-05-22 00:00:00 Completed [facility] Varicella (varivax)(chicken pox) 2003-05-22 00:00:00 Completed [facility] HIB 4 Dose Schedule 2003-05-22 00:00:00 Completed [facility] MMR 2003-05-22 00:00:00 Completed [facility] Pneumococcal 7 Conjugate, PCV7 (Prevnar7) 2003-05-22 00:00:00 Completed [facility] Varicella (varivax)(chicken pox) 2003-05-22 00:00:00 Completed [facility] HIB 4 Dose Schedule 2003-05-22 00:00:00 Completed [facility] MMR 2003-05-22 00:00:00 Completed [facility] Pneumococcal 7 Conjugate, PCV7 (Prevnar7) 2003-05-22 00:00:00 Completed [facility] Varicella (varivax)(chicken pox) 2003-05-22 00:00:00 Completed [facility] HIB 4 Dose Schedule 2003-05-22 00:00:00 Completed [facility] MMR 2003-05-22 00:00:00 Completed [facility] Pneumococcal 7 Conjugate, PCV7 (Prevnar7) 2003-05-22 00:00:00 Completed [facility] Varicella (varivax)(chicken pox) 2003-05-22 00:00:00 Completed [facility] HIB 4 Dose Schedule 2003-05-22 00:00:00 Completed [facility] MMR 2003-05-22 00:00:00 Completed [facility] Pneumococcal 7 Conjugate, PCV7 (Prevnar7) 2003-05-22 00:00:00 Completed [facility] Varicella (varivax)(chicken pox) 2003-05-22 00:00:00 Completed [facility] HIB 4 Dose Schedule 2003-05-22 00:00:00 Completed [facility] MMR 2003-05-22 00:00:00 Completed [facility] Pneumococcal 7 Conjugate, PCV7 (Prevnar7) 2003-05-22 00:00:00 Completed [facility] Varicella (varivax)(chicken pox) 2003-05-22 00:00:00 Completed [facility] HIB 4 Dose Schedule 2003-05-22 00:00:00 Completed [facility] MMR 2003-05-22 00:00:00 Completed [facility] Pneumococcal 7 Conjugate, PCV7 (Prevnar7) 2003-05-22 00:00:00 Completed [facility] Varicella (varivax)(chicken pox) 2003-05-22 00:00:00 Completed [facility] HIB 4 Dose Schedule 2003-05-22 00:00:00 Completed [facility] MMR 2003-05-22 00:00:00 Completed [facility] Pneumococcal 7 Conjugate, PCV7 (Prevnar7) 2003-05-22 00:00:00 Completed [facility] Varicella (varivax)(chicken pox) 2003-05-22 00:00:00 Completed [facility] HIB 4 Dose Schedule 2003-05-22 00:00:00 Completed [facility] MMR 2003-05-22 00:00:00 Completed [facility] Pneumococcal 7 Conjugate, PCV7 (Prevnar7) 2003-05-22 00:00:00 Completed [facility] Varicella (varivax)(chicken pox) 2003-05-22 00:00:00 Completed [facility] HIB 4 Dose Schedule 2003-05-22 00:00:00 Completed [facility] MMR 2003-05-22 00:00:00 Completed [facility] Pneumococcal 7 Conjugate, PCV7 (Prevnar7) 2003-05-22 00:00:00 Completed [facility] Varicella (varivax)(chicken pox) 2003-05-22 00:00:00 Completed [facility] HIB 4 Dose Schedule 2003-05-22 00:00:00 Completed [facility] MMR 2003-05-22 00:00:00 Completed [facility] Pneumococcal 7 Conjugate, PCV7 (Prevnar7) 2003-05-22 00:00:00 Completed [facility] Varicella (varivax)(chicken pox) 2003-05-22 00:00:00 Completed [facility] HIB 4 Dose Schedule 2003-05-22 00:00:00 Completed [facility] MMR 2003-05-22 00:00:00 Completed [facility] Pneumococcal 7 Conjugate, PCV7 (Prevnar7) 2003-05-22 00:00:00 Completed [facility] Varicella (varivax)(chicken pox) 2003-05-22 00:00:00 Completed [facility] HIB 4 Dose Schedule 2003-05-22 00:00:00 Completed [facility] MMR 2003-05-22 00:00:00 Completed [facility] Pneumococcal 7 Conjugate, PCV7 (Prevnar7) 2003-05-22 00:00:00 Completed [facility] Varicella (varivax)(chicken pox) 2003-05-22 00:00:00 Completed [facility] HIB 4 Dose Schedule 2003-05-22 00:00:00 Completed [facility] MMR 2003-05-22 00:00:00 Completed [facility] Pneumococcal 7 Conjugate, PCV7 (Prevnar7) 2003-05-22 00:00:00 Completed [facility] Varicella (varivax)(chicken pox) 2003-05-22 00:00:00 Completed [facility] HIB 4 Dose Schedule 2003-05-22 00:00:00 Completed [facility] MMR 2003-05-22 00:00:00 Completed [facility] Pneumococcal 7 Conjugate, PCV7 (Prevnar7) 2003-05-22 00:00:00 Completed [facility] Varicella (varivax)(chicken pox) 2003-05-22 00:00:00 Completed [facility] HIB 4 Dose Schedule 2003-05-22 00:00:00 Completed [facility] MMR 2003-05-22 00:00:00 Completed [facility] Pneumococcal 7 Conjugate, PCV7 (Prevnar7) 2003-05-22 00:00:00 Completed [facility] Varicella (varivax)(chicken pox) 2003-05-22 00:00:00 Completed [facility] HIB 4 Dose Schedule 2003-05-22 00:00:00 Completed [facility] MMR 2003-05-22 00:00:00 Completed [facility] Pneumococcal 7 Conjugate, PCV7 (Prevnar7) 2003-05-22 00:00:00 Completed [facility] Varicella (varivax)(chicken pox) 2003-05-22 00:00:00 Completed [facility] HIB 4 Dose Schedule 2003-05-22 00:00:00 Completed [facility] MMR 2003-05-22 00:00:00 Completed [facility] Pneumococcal 7 Conjugate, PCV7 (Prevnar7) 2003-05-22 00:00:00 Completed [facility] Varicella (varivax)(chicken pox) 2003-05-22 00:00:00 Completed [facility] HIB 4 Dose Schedule 2003-05-22 00:00:00 Completed [facility] MMR 2003-05-22 00:00:00 Completed [facility] Pneumococcal 7 Conjugate, PCV7 (Prevnar7) 2003-05-22 00:00:00 Completed [facility] Varicella (varivax)(chicken pox) 2003-05-22 00:00:00 Completed [facility] HIB 4 Dose Schedule 2003-05-22 00:00:00 Completed [facility] MMR 2003-05-22 00:00:00 Completed [facility] Pneumococcal 7 Conjugate, PCV7 (Prevnar7) 2003-05-22 00:00:00 Completed [facility] Varicella (varivax)(chicken pox) 2003-05-22 00:00:00 Completed [facility] HIB 4 Dose Schedule 2003-05-22 00:00:00 Completed [facility] MMR 2003-05-22 00:00:00 Completed [facility] Pneumococcal 7 Conjugate, PCV7 (Prevnar7) 2003-05-22 00:00:00 Completed [facility] Varicella (varivax)(chicken pox) 2003-05-22 00:00:00 Completed [facility] HIB 4 Dose Schedule 2003-05-22 00:00:00 Completed [facility] MMR 2003-05-22 00:00:00 Completed [facility] Pneumococcal 7 Conjugate, PCV7 (Prevnar7) 2003-05-22 00:00:00 Completed [facility] Varicella (varivax)(chicken pox) 2003-05-22 00:00:00 Completed [facility] HIB 4 Dose Schedule 2003-05-22 00:00:00 Completed [facility] MMR 2003-05-22 00:00:00 Completed [facility] Pneumococcal 7 Conjugate, PCV7 (Prevnar7) 2003-05-22 00:00:00 Completed [facility] Varicella (varivax)(chicken pox) 2003-05-22 00:00:00 Completed [facility] HIB 4 Dose Schedule 2003-05-22 00:00:00 Completed [facility] MMR 2003-05-22 00:00:00 Completed [facility] Pneumococcal 7 Conjugate, PCV7 (Prevnar7) 2003-05-22 00:00:00 Completed [facility] Varicella (varivax)(chicken pox) 2003-05-22 00:00:00 Completed [facility] HIB 4 Dose Schedule 2003-05-22 00:00:00 Completed [facility] MMR 2003-05-22 00:00:00 Completed [facility] Pneumococcal 7 Conjugate, PCV7 (Prevnar7) 2003-05-22 00:00:00 Completed [facility] Varicella (varivax)(chicken pox) 2003-05-22 00:00:00 Completed [facility] HIB 4 Dose Schedule 2003-05-22 00:00:00 Completed [facility] MMR 2003-05-22 00:00:00 Completed [facility] Pneumococcal 7 Conjugate, PCV7 (Prevnar7) 2003-05-22 00:00:00 Completed [facility] Varicella (varivax)(chicken pox) 2003-05-22 00:00:00 Completed [facility] HIB 4 Dose Schedule 2003-05-22 00:00:00 Completed [facility] MMR 2003-05-22 00:00:00 Completed [facility] Pneumococcal 7 Conjugate, PCV7 (Prevnar7) 2003-05-22 00:00:00 Completed [facility] Varicella (varivax)(chicken pox) 2003-05-22 00:00:00 Completed [facility] HIB 4 Dose Schedule 2003-05-22 00:00:00 Completed [facility] MMR 2003-05-22 00:00:00 Completed [facility] Pneumococcal 7 Conjugate, PCV7 (Prevnar7) 2003-05-22 00:00:00 Completed [facility] Varicella (varivax)(chicken pox) 2003-05-22 00:00:00 Completed [facility] HIB 4 Dose Schedule 2003-05-22 00:00:00 Completed [facility] MMR 2003-05-22 00:00:00 Completed [facility] Pneumococcal 7 Conjugate, PCV7 (Prevnar7) 2003-05-22 00:00:00 Completed [facility] Varicella (varivax)(chicken pox) 2003-05-22 00:00:00 Completed [facility] HIB 4 Dose Schedule 2003-05-22 00:00:00 Completed [facility] MMR 2003-05-22 00:00:00 Completed [facility] Pneumococcal 7 Conjugate, PCV7 (Prevnar7) 2003-05-22 00:00:00 Completed [facility] Varicella (varivax)(chicken pox) 2003-05-22 00:00:00 Completed [facility] HIB 4 Dose Schedule 2003-05-22 00:00:00 Completed [facility] MMR 2003-05-22 00:00:00 Completed [facility] Pneumococcal 7 Conjugate, PCV7 (Prevnar7) 2003-05-22 00:00:00 Completed [facility] Varicella (varivax)(chicken pox) 2003-05-22 00:00:00 Completed [facility] HIB 4 Dose Schedule 2003-05-22 00:00:00 Completed [facility] MMR 2003-05-22 00:00:00 Completed [facility] Pneumococcal 7 Conjugate, PCV7 (Prevnar7) 2003-05-22 00:00:00 Completed [facility] Varicella (varivax)(chicken pox) 2003-05-22 00:00:00 Completed [facility] HIB 4 Dose Schedule 2003-05-22 00:00:00 Completed [facility] MMR 2003-05-22 00:00:00 Completed [facility] Pneumococcal 7 Conjugate, PCV7 (Prevnar7) 2003-05-22 00:00:00 Completed [facility] Varicella (varivax)(chicken pox) 2003-05-22 00:00:00 Completed [facility] HIB 4 Dose Schedule 2003-05-22 00:00:00 Completed [facility] MMR 2003-05-22 00:00:00 Completed [facility] Pneumococcal 7 Conjugate, PCV7 (Prevnar7) 2003-05-22 00:00:00 Completed [facility] Varicella (varivax)(chicken pox) 2003-05-22 00:00:00 Completed [facility] HIB 4 Dose Schedule 2003-05-22 00:00:00 Completed [facility] MMR 2003-05-22 00:00:00 Completed [facility] Pneumococcal 7 Conjugate, PCV7 (Prevnar7) 2003-05-22 00:00:00 Completed [facility] Varicella (varivax)(chicken pox) 2003-05-22 00:00:00 Completed [facility] HIB 4 Dose Schedule 2003-05-22 00:00:00 Completed [facility] MMR 2003-05-22 00:00:00 Completed [facility] Pneumococcal 7 Conjugate, PCV7 (Prevnar7) 2003-05-22 00:00:00 Completed [facility] Varicella (varivax)(chicken pox) 2003-05-22 00:00:00 Completed [facility] HIB 4 Dose Schedule 2003-05-22 00:00:00 Completed [facility] MMR 2003-05-22 00:00:00 Completed [facility] Pneumococcal 7 Conjugate, PCV7 (Prevnar7) 2003-05-22 00:00:00 Completed [facility] Varicella (varivax)(chicken pox) 2003-05-22 00:00:00 Completed [facility] HIB 4 Dose Schedule 2003-05-22 00:00:00 Completed [facility] MMR 2003-05-22 00:00:00 Completed [facility] Pneumococcal 7 Conjugate, PCV7 (Prevnar7) 2003-05-22 00:00:00 Completed [facility] Varicella (varivax)(chicken pox) 2003-05-22 00:00:00 Completed [facility] HIB 4 Dose Schedule 2003-05-22 00:00:00 Completed [facility] MMR 2003-05-22 00:00:00 Completed [facility] Pneumococcal 7 Conjugate, PCV7 (Prevnar7) 2003-05-22 00:00:00 Completed [facility] Varicella (varivax)(chicken pox) 2003-05-22 00:00:00 Completed [facility] HIB 4 Dose Schedule 2003-05-22 00:00:00 Completed [facility] MMR 2003-05-22 00:00:00 Completed [facility] Pneumococcal 7 Conjugate, PCV7 (Prevnar7) 2003-05-22 00:00:00 Completed [facility] Varicella (varivax)(chicken pox) 2003-05-22 00:00:00 Completed [facility] HIB 4 Dose Schedule 2003-05-22 00:00:00 Completed [facility] MMR 2003-05-22 00:00:00 Completed [facility] Pneumococcal 7 Conjugate, PCV7 (Prevnar7) 2003-05-22 00:00:00 Completed [facility] Varicella (varivax)(chicken pox) 2003-05-22 00:00:00 Completed [facility] HIB 4 Dose Schedule 2003-05-22 00:00:00 Completed [facility] MMR 2003-05-22 00:00:00 Completed [facility] Pneumococcal 7 Conjugate, PCV7 (Prevnar7) 2003-05-22 00:00:00 Completed [facility] Varicella (varivax)(chicken pox) 2003-05-22 00:00:00 Completed [facility] HIB 4 Dose Schedule 2003-05-22 00:00:00 Completed [facility] MMR 2003-05-22 00:00:00 Completed [facility] Pneumococcal 7 Conjugate, PCV7 (Prevnar7) 2003-05-22 00:00:00 Completed [facility] Varicella (varivax)(chicken pox) 2003-05-22 00:00:00 Completed [facility] HIB 4 Dose Schedule 2003-05-22 00:00:00 Completed [facility] MMR 2003-05-22 00:00:00 Completed [facility] Pneumococcal 7 Conjugate, PCV7 (Prevnar7) 2003-05-22 00:00:00 Completed [facility] Varicella (varivax)(chicken pox) 2003-05-22 00:00:00 Completed [facility] HIB 4 Dose Schedule 2003-05-22 00:00:00 Completed [facility] MMR 2003-05-22 00:00:00 Completed [facility] Pneumococcal 7 Conjugate, PCV7 (Prevnar7) 2003-05-22 00:00:00 Completed [facility] Varicella (varivax)(chicken pox) 2003-05-22 00:00:00 Completed [facility] HIB 4 Dose Schedule 2003-05-22 00:00:00 Completed [facility] MMR 2003-05-22 00:00:00 Completed [facility] Pneumococcal 7 Conjugate, PCV7 (Prevnar7) 2003-05-22 00:00:00 Completed [facility] Varicella (varivax)(chicken pox) 2003-05-22 00:00:00 Completed [facility] HIB 4 Dose Schedule 2003-05-22 00:00:00 Completed [facility] MMR 2003-05-22 00:00:00 Completed [facility] Pneumococcal 7 Conjugate, PCV7 (Prevnar7) 2003-05-22 00:00:00 Completed [facility] Varicella (varivax)(chicken pox) 2003-05-22 00:00:00 Completed [facility] HIB 4 Dose Schedule 2003-05-22 00:00:00 Completed [facility] MMR 2003-05-22 00:00:00 Completed [facility] Pneumococcal 7 Conjugate, PCV7 (Prevnar7) 2003-05-22 00:00:00 Completed [facility] Varicella (varivax)(chicken pox) 2003-05-22 00:00:00 Completed [facility] DTAP 2003-01-01 00:00:00 Completed [facility] HIB 4 Dose Schedule 2003-01-01 00:00:00 Completed [facility] Hep B, Adol or Pedi Dosage 2003-01-01 00:00:00 Completed [facility] Pneumococcal 7 Conjugate, PCV7 (Prevnar7) 2003-01-01 00:00:00 Completed [facility] DTAP 2003-01-01 00:00:00 Completed [facility] HIB 4 Dose Schedule 2003-01-01 00:00:00 Completed [facility] Hep B, Adol or Pedi Dosage 2003-01-01 00:00:00 Completed [facility] Pneumococcal 7 Conjugate, PCV7 (Prevnar7) 2003-01-01 00:00:00 Completed [facility] DTAP 2003-01-01 00:00:00 Completed [facility] HIB 4 Dose Schedule 2003-01-01 00:00:00 Completed [facility] Hep B, Adol or Pedi Dosage 2003-01-01 00:00:00 Completed [facility] Pneumococcal 7 Conjugate, PCV7 (Prevnar7) 2003-01-01 00:00:00 Completed [facility] DTAP 2003-01-01 00:00:00 Completed [facility] HIB 4 Dose Schedule 2003-01-01 00:00:00 Completed [facility] Hep B, Adol or Pedi Dosage 2003-01-01 00:00:00 Completed [facility] Pneumococcal 7 Conjugate, PCV7 (Prevnar7) 2003-01-01 00:00:00 Completed [facility] DTAP 2003-01-01 00:00:00 Completed [facility] HIB 4 Dose Schedule 2003-01-01 00:00:00 Completed [facility] Hep B, Adol or Pedi Dosage 2003-01-01 00:00:00 Completed [facility] Pneumococcal 7 Conjugate, PCV7 (Prevnar7) 2003-01-01 00:00:00 Completed [facility] DTAP 2003-01-01 00:00:00 Completed [facility] HIB 4 Dose Schedule 2003-01-01 00:00:00 Completed [facility] Hep B, Adol or Pedi Dosage 2003-01-01 00:00:00 Completed [facility] Pneumococcal 7 Conjugate, PCV7 (Prevnar7) 2003-01-01 00:00:00 Completed [facility] DTAP 2003-01-01 00:00:00 Completed [facility] HIB 4 Dose Schedule 2003-01-01 00:00:00 Completed [facility] Hep B, Adol or Pedi Dosage 2003-01-01 00:00:00 Completed [facility] Pneumococcal 7 Conjugate, PCV7 (Prevnar7) 2003-01-01 00:00:00 Completed [facility] DTAP 2003-01-01 00:00:00 Completed [facility] HIB 4 Dose Schedule 2003-01-01 00:00:00 Completed [facility] Hep B, Adol or Pedi Dosage 2003-01-01 00:00:00 Completed [facility] Pneumococcal 7 Conjugate, PCV7 (Prevnar7) 2003-01-01 00:00:00 Completed [facility] DTAP 2003-01-01 00:00:00 Completed [facility] HIB 4 Dose Schedule 2003-01-01 00:00:00 Completed [facility] Hep B, Adol or Pedi Dosage 2003-01-01 00:00:00 Completed [facility] Pneumococcal 7 Conjugate, PCV7 (Prevnar7) 2003-01-01 00:00:00 Completed [facility] DTAP 2003-01-01 00:00:00 Completed [facility] HIB 4 Dose Schedule 2003-01-01 00:00:00 Completed [facility] Hep B, Adol or Pedi Dosage 2003-01-01 00:00:00 Completed [facility] Pneumococcal 7 Conjugate, PCV7 (Prevnar7) 2003-01-01 00:00:00 Completed [facility] DTAP 2003-01-01 00:00:00 Completed [facility] HIB 4 Dose Schedule 2003-01-01 00:00:00 Completed [facility] Hep B, Adol or Pedi Dosage 2003-01-01 00:00:00 Completed [facility] Pneumococcal 7 Conjugate, PCV7 (Prevnar7) 2003-01-01 00:00:00 Completed [facility] DTAP 2003-01-01 00:00:00 Completed [facility] HIB 4 Dose Schedule 2003-01-01 00:00:00 Completed [facility] Hep B, Adol or Pedi Dosage 2003-01-01 00:00:00 Completed [facility] Pneumococcal 7 Conjugate, PCV7 (Prevnar7) 2003-01-01 00:00:00 Completed [facility] DTAP 2003-01-01 00:00:00 Completed [facility] HIB 4 Dose Schedule 2003-01-01 00:00:00 Completed [facility] Hep B, Adol or Pedi Dosage 2003-01-01 00:00:00 Completed [facility] Pneumococcal 7 Conjugate, PCV7 (Prevnar7) 2003-01-01 00:00:00 Completed [facility] DTAP 2003-01-01 00:00:00 Completed [facility] HIB 4 Dose Schedule 2003-01-01 00:00:00 Completed [facility] Hep B, Adol or Pedi Dosage 2003-01-01 00:00:00 Completed [facility] Pneumococcal 7 Conjugate, PCV7 (Prevnar7) 2003-01-01 00:00:00 Completed [facility] DTAP 2003-01-01 00:00:00 Completed [facility] HIB 4 Dose Schedule 2003-01-01 00:00:00 Completed [facility] Hep B, Adol or Pedi Dosage 2003-01-01 00:00:00 Completed [facility] Pneumococcal 7 Conjugate, PCV7 (Prevnar7) 2003-01-01 00:00:00 Completed [facility] DTAP 2003-01-01 00:00:00 Completed [facility] HIB 4 Dose Schedule 2003-01-01 00:00:00 Completed [facility] Hep B, Adol or Pedi Dosage 2003-01-01 00:00:00 Completed [facility] Pneumococcal 7 Conjugate, PCV7 (Prevnar7) 2003-01-01 00:00:00 Completed [facility] DTAP 2003-01-01 00:00:00 Completed [facility] HIB 4 Dose Schedule 2003-01-01 00:00:00 Completed [facility] Hep B, Adol or Pedi Dosage 2003-01-01 00:00:00 Completed [facility] Pneumococcal 7 Conjugate, PCV7 (Prevnar7) 2003-01-01 00:00:00 Completed [facility] DTAP 2003-01-01 00:00:00 Completed [facility] HIB 4 Dose Schedule 2003-01-01 00:00:00 Completed [facility] Hep B, Adol or Pedi Dosage 2003-01-01 00:00:00 Completed [facility] Pneumococcal 7 Conjugate, PCV7 (Prevnar7) 2003-01-01 00:00:00 Completed [facility] DTAP 2003-01-01 00:00:00 Completed [facility] HIB 4 Dose Schedule 2003-01-01 00:00:00 Completed [facility] Hep B, Adol or Pedi Dosage 2003-01-01 00:00:00 Completed [facility] Pneumococcal 7 Conjugate, PCV7 (Prevnar7) 2003-01-01 00:00:00 Completed [facility] DTAP 2003-01-01 00:00:00 Completed [facility] HIB 4 Dose Schedule 2003-01-01 00:00:00 Completed [facility] Hep B, Adol or Pedi Dosage 2003-01-01 00:00:00 Completed [facility] Pneumococcal 7 Conjugate, PCV7 (Prevnar7) 2003-01-01 00:00:00 Completed [facility] DTAP 2003-01-01 00:00:00 Completed [facility] HIB 4 Dose Schedule 2003-01-01 00:00:00 Completed [facility] Hep B, Adol or Pedi Dosage 2003-01-01 00:00:00 Completed [facility] Pneumococcal 7 Conjugate, PCV7 (Prevnar7) 2003-01-01 00:00:00 Completed [facility] DTAP 2003-01-01 00:00:00 Completed [facility] HIB 4 Dose Schedule 2003-01-01 00:00:00 Completed [facility] Hep B, Adol or Pedi Dosage 2003-01-01 00:00:00 Completed [facility] Pneumococcal 7 Conjugate, PCV7 (Prevnar7) 2003-01-01 00:00:00 Completed [facility] DTAP 2003-01-01 00:00:00 Completed [facility] HIB 4 Dose Schedule 2003-01-01 00:00:00 Completed [facility] Hep B, Adol or Pedi Dosage 2003-01-01 00:00:00 Completed [facility] Pneumococcal 7 Conjugate, PCV7 (Prevnar7) 2003-01-01 00:00:00 Completed [facility] DTAP 2003-01-01 00:00:00 Completed [facility] HIB 4 Dose Schedule 2003-01-01 00:00:00 Completed [facility] Hep B, Adol or Pedi Dosage 2003-01-01 00:00:00 Completed [facility] Pneumococcal 7 Conjugate, PCV7 (Prevnar7) 2003-01-01 00:00:00 Completed [facility] DTAP 2003-01-01 00:00:00 Completed [facility] HIB 4 Dose Schedule 2003-01-01 00:00:00 Completed [facility] Hep B, Adol or Pedi Dosage 2003-01-01 00:00:00 Completed [facility] Pneumococcal 7 Conjugate, PCV7 (Prevnar7) 2003-01-01 00:00:00 Completed [facility] DTAP 2003-01-01 00:00:00 Completed [facility] HIB 4 Dose Schedule 2003-01-01 00:00:00 Completed [facility] Hep B, Adol or Pedi Dosage 2003-01-01 00:00:00 Completed [facility] Pneumococcal 7 Conjugate, PCV7 (Prevnar7) 2003-01-01 00:00:00 Completed [facility] DTAP 2003-01-01 00:00:00 Completed [facility] HIB 4 Dose Schedule 2003-01-01 00:00:00 Completed [facility] Hep B, Adol or Pedi Dosage 2003-01-01 00:00:00 Completed [facility] Pneumococcal 7 Conjugate, PCV7 (Prevnar7) 2003-01-01 00:00:00 Completed [facility] DTAP 2003-01-01 00:00:00 Completed [facility] HIB 4 Dose Schedule 2003-01-01 00:00:00 Completed [facility] Hep B, Adol or Pedi Dosage 2003-01-01 00:00:00 Completed [facility] Pneumococcal 7 Conjugate, PCV7 (Prevnar7) 2003-01-01 00:00:00 Completed [facility] DTAP 2003-01-01 00:00:00 Completed [facility] HIB 4 Dose Schedule 2003-01-01 00:00:00 Completed [facility] Hep B, Adol or Pedi Dosage 2003-01-01 00:00:00 Completed [facility] Pneumococcal 7 Conjugate, PCV7 (Prevnar7) 2003-01-01 00:00:00 Completed [facility] DTAP 2003-01-01 00:00:00 Completed [facility] HIB 4 Dose Schedule 2003-01-01 00:00:00 Completed [facility] Hep B, Adol or Pedi Dosage 2003-01-01 00:00:00 Completed [facility] Pneumococcal 7 Conjugate, PCV7 (Prevnar7) 2003-01-01 00:00:00 Completed [facility] DTAP 2003-01-01 00:00:00 Completed [facility] HIB 4 Dose Schedule 2003-01-01 00:00:00 Completed [facility] Hep B, Adol or Pedi Dosage 2003-01-01 00:00:00 Completed [facility] Pneumococcal 7 Conjugate, PCV7 (Prevnar7) 2003-01-01 00:00:00 Completed [facility] DTAP 2003-01-01 00:00:00 Completed [facility] HIB 4 Dose Schedule 2003-01-01 00:00:00 Completed [facility] Hep B, Adol or Pedi Dosage 2003-01-01 00:00:00 Completed [facility] Pneumococcal 7 Conjugate, PCV7 (Prevnar7) 2003-01-01 00:00:00 Completed [facility] DTAP 2003-01-01 00:00:00 Completed [facility] HIB 4 Dose Schedule 2003-01-01 00:00:00 Completed [facility] Hep B, Adol or Pedi Dosage 2003-01-01 00:00:00 Completed [facility] Pneumococcal 7 Conjugate, PCV7 (Prevnar7) 2003-01-01 00:00:00 Completed [facility] DTAP 2003-01-01 00:00:00 Completed [facility] HIB 4 Dose Schedule 2003-01-01 00:00:00 Completed [facility] Hep B, Adol or Pedi Dosage 2003-01-01 00:00:00 Completed [facility] Pneumococcal 7 Conjugate, PCV7 (Prevnar7) 2003-01-01 00:00:00 Completed [facility] DTAP 2003-01-01 00:00:00 Completed [facility] HIB 4 Dose Schedule 2003-01-01 00:00:00 Completed [facility] Hep B, Adol or Pedi Dosage 2003-01-01 00:00:00 Completed [facility] Pneumococcal 7 Conjugate, PCV7 (Prevnar7) 2003-01-01 00:00:00 Completed [facility] DTAP 2003-01-01 00:00:00 Completed [facility] HIB 4 Dose Schedule 2003-01-01 00:00:00 Completed [facility] Hep B, Adol or Pedi Dosage 2003-01-01 00:00:00 Completed [facility] Pneumococcal 7 Conjugate, PCV7 (Prevnar7) 2003-01-01 00:00:00 Completed [facility] DTAP 2003-01-01 00:00:00 Completed [facility] HIB 4 Dose Schedule 2003-01-01 00:00:00 Completed [facility] Hep B, Adol or Pedi Dosage 2003-01-01 00:00:00 Completed [facility] Pneumococcal 7 Conjugate, PCV7 (Prevnar7) 2003-01-01 00:00:00 Completed [facility] DTAP 2003-01-01 00:00:00 Completed [facility] HIB 4 Dose Schedule 2003-01-01 00:00:00 Completed [facility] Hep B, Adol or Pedi Dosage 2003-01-01 00:00:00 Completed [facility] Pneumococcal 7 Conjugate, PCV7 (Prevnar7) 2003-01-01 00:00:00 Completed [facility] DTAP 2003-01-01 00:00:00 Completed [facility] HIB 4 Dose Schedule 2003-01-01 00:00:00 Completed [facility] Hep B, Adol or Pedi Dosage 2003-01-01 00:00:00 Completed [facility] Pneumococcal 7 Conjugate, PCV7 (Prevnar7) 2003-01-01 00:00:00 Completed [facility] DTAP 2003-01-01 00:00:00 Completed [facility] HIB 4 Dose Schedule 2003-01-01 00:00:00 Completed [facility] Hep B, Adol or Pedi Dosage 2003-01-01 00:00:00 Completed [facility] Pneumococcal 7 Conjugate, PCV7 (Prevnar7) 2003-01-01 00:00:00 Completed [facility] DTAP 2003-01-01 00:00:00 Completed [facility] HIB 4 Dose Schedule 2003-01-01 00:00:00 Completed [facility] Hep B, Adol or Pedi Dosage 2003-01-01 00:00:00 Completed [facility] Pneumococcal 7 Conjugate, PCV7 (Prevnar7) 2003-01-01 00:00:00 Completed [facility] DTAP 2003-01-01 00:00:00 Completed [facility] HIB 4 Dose Schedule 2003-01-01 00:00:00 Completed [facility] Hep B, Adol or Pedi Dosage 2003-01-01 00:00:00 Completed [facility] Pneumococcal 7 Conjugate, PCV7 (Prevnar7) 2003-01-01 00:00:00 Completed [facility] DTAP 2003-01-01 00:00:00 Completed [facility] HIB 4 Dose Schedule 2003-01-01 00:00:00 Completed [facility] Hep B, Adol or Pedi Dosage 2003-01-01 00:00:00 Completed [facility] Pneumococcal 7 Conjugate, PCV7 (Prevnar7) 2003-01-01 00:00:00 Completed [facility] DTAP 2003-01-01 00:00:00 Completed [facility] HIB 4 Dose Schedule 2003-01-01 00:00:00 Completed [facility] Hep B, Adol or Pedi Dosage 2003-01-01 00:00:00 Completed [facility] Pneumococcal 7 Conjugate, PCV7 (Prevnar7) 2003-01-01 00:00:00 Completed [facility] DTAP 2003-01-01 00:00:00 Completed [facility] HIB 4 Dose Schedule 2003-01-01 00:00:00 Completed [facility] Hep B, Adol or Pedi Dosage 2003-01-01 00:00:00 Completed [facility] Pneumococcal 7 Conjugate, PCV7 (Prevnar7) 2003-01-01 00:00:00 Completed [facility] DTAP 2003-01-01 00:00:00 Completed [facility] HIB 4 Dose Schedule 2003-01-01 00:00:00 Completed [facility] Hep B, Adol or Pedi Dosage 2003-01-01 00:00:00 Completed [facility] Pneumococcal 7 Conjugate, PCV7 (Prevnar7) 2003-01-01 00:00:00 Completed [facility] DTAP 2003-01-01 00:00:00 Completed [facility] HIB 4 Dose Schedule 2003-01-01 00:00:00 Completed [facility] Hep B, Adol or Pedi Dosage 2003-01-01 00:00:00 Completed [facility] Pneumococcal 7 Conjugate, PCV7 (Prevnar7) 2003-01-01 00:00:00 Completed [facility] DTAP 2003-01-01 00:00:00 Completed [facility] HIB 4 Dose Schedule 2003-01-01 00:00:00 Completed [facility] Hep B, Adol or Pedi Dosage 2003-01-01 00:00:00 Completed [facility] Pneumococcal 7 Conjugate, PCV7 (Prevnar7) 2003-01-01 00:00:00 Completed [facility] DTAP 2003-01-01 00:00:00 Completed [facility] HIB 4 Dose Schedule 2003-01-01 00:00:00 Completed [facility] Hep B, Adol or Pedi Dosage 2003-01-01 00:00:00 Completed [facility] Pneumococcal 7 Conjugate, PCV7 (Prevnar7) 2003-01-01 00:00:00 Completed [facility] DTAP 2003-01-01 00:00:00 Completed [facility] HIB 4 Dose Schedule 2003-01-01 00:00:00 Completed [facility] Hep B, Adol or Pedi Dosage 2003-01-01 00:00:00 Completed [facility] Pneumococcal 7 Conjugate, PCV7 (Prevnar7) 2003-01-01 00:00:00 Completed [facility] DTAP 2003-01-01 00:00:00 Completed [facility] HIB 4 Dose Schedule 2003-01-01 00:00:00 Completed [facility] Hep B, Adol or Pedi Dosage 2003-01-01 00:00:00 Completed [facility] Pneumococcal 7 Conjugate, PCV7 (Prevnar7) 2003-01-01 00:00:00 Completed [facility] DTAP 2003-01-01 00:00:00 Completed [facility] HIB 4 Dose Schedule 2003-01-01 00:00:00 Completed [facility] Hep B, Adol or Pedi Dosage 2003-01-01 00:00:00 Completed [facility] Pneumococcal 7 Conjugate, PCV7 (Prevnar7) 2003-01-01 00:00:00 Completed [facility] DTAP 2003-01-01 00:00:00 Completed [facility] HIB 4 Dose Schedule 2003-01-01 00:00:00 Completed [facility] Hep B, Adol or Pedi Dosage 2003-01-01 00:00:00 Completed [facility] Pneumococcal 7 Conjugate, PCV7 (Prevnar7) 2003-01-01 00:00:00 Completed [facility] DTAP 2003-01-01 00:00:00 Completed [facility] HIB 4 Dose Schedule 2003-01-01 00:00:00 Completed [facility] Hep B, Adol or Pedi Dosage 2003-01-01 00:00:00 Completed [facility] Pneumococcal 7 Conjugate, PCV7 (Prevnar7) 2003-01-01 00:00:00 Completed [facility] DTAP 2003-01-01 00:00:00 Completed [facility] HIB 4 Dose Schedule 2003-01-01 00:00:00 Completed [facility] Hep B, Adol or Pedi Dosage 2003-01-01 00:00:00 Completed [facility] Pneumococcal 7 Conjugate, PCV7 (Prevnar7) 2003-01-01 00:00:00 Completed [facility] DTAP 2003-01-01 00:00:00 Completed [facility] HIB 4 Dose Schedule 2003-01-01 00:00:00 Completed [facility] Hep B, Adol or Pedi Dosage 2003-01-01 00:00:00 Completed [facility] Pneumococcal 7 Conjugate, PCV7 (Prevnar7) 2003-01-01 00:00:00 Completed [facility] DTAP 2003-01-01 00:00:00 Completed [facility] HIB 4 Dose Schedule 2003-01-01 00:00:00 Completed [facility] Hep B, Adol or Pedi Dosage 2003-01-01 00:00:00 Completed [facility] Pneumococcal 7 Conjugate, PCV7 (Prevnar7) 2003-01-01 00:00:00 Completed [facility] DTAP 2003-01-01 00:00:00 Completed [facility] HIB 4 Dose Schedule 2003-01-01 00:00:00 Completed [facility] Hep B, Adol or Pedi Dosage 2003-01-01 00:00:00 Completed [facility] Pneumococcal 7 Conjugate, PCV7 (Prevnar7) 2003-01-01 00:00:00 Completed [facility] DTAP 2003-01-01 00:00:00 Completed [facility] HIB 4 Dose Schedule 2003-01-01 00:00:00 Completed [facility] Hep B, Adol or Pedi Dosage 2003-01-01 00:00:00 Completed [facility] Pneumococcal 7 Conjugate, PCV7 (Prevnar7) 2003-01-01 00:00:00 Completed [facility] DTAP 2003-01-01 00:00:00 Completed [facility] HIB 4 Dose Schedule 2003-01-01 00:00:00 Completed [facility] Hep B, Adol or Pedi Dosage 2003-01-01 00:00:00 Completed [facility] Pneumococcal 7 Conjugate, PCV7 (Prevnar7) 2003-01-01 00:00:00 Completed [facility] DTAP 2003-01-01 00:00:00 Completed [facility] HIB 4 Dose Schedule 2003-01-01 00:00:00 Completed [facility] Hep B, Adol or Pedi Dosage 2003-01-01 00:00:00 Completed [facility] Pneumococcal 7 Conjugate, PCV7 (Prevnar7) 2003-01-01 00:00:00 Completed [facility] DTAP 2003-01-01 00:00:00 Completed [facility] HIB 4 Dose Schedule 2003-01-01 00:00:00 Completed [facility] Hep B, Adol or Pedi Dosage 2003-01-01 00:00:00 Completed [facility] Pneumococcal 7 Conjugate, PCV7 (Prevnar7) 2003-01-01 00:00:00 Completed [facility] DTAP 2003-01-01 00:00:00 Completed [facility] HIB 4 Dose Schedule 2003-01-01 00:00:00 Completed [facility] Hep B, Adol or Pedi Dosage 2003-01-01 00:00:00 Completed [facility] Pneumococcal 7 Conjugate, PCV7 (Prevnar7) 2003-01-01 00:00:00 Completed [facility] DTAP 2003-01-01 00:00:00 Completed [facility] HIB 4 Dose Schedule 2003-01-01 00:00:00 Completed [facility] Hep B, Adol or Pedi Dosage 2003-01-01 00:00:00 Completed [facility] Pneumococcal 7 Conjugate, PCV7 (Prevnar7) 2003-01-01 00:00:00 Completed [facility] DTAP 2003-01-01 00:00:00 Completed [facility] HIB 4 Dose Schedule 2003-01-01 00:00:00 Completed [facility] Hep B, Adol or Pedi Dosage 2003-01-01 00:00:00 Completed [facility] Pneumococcal 7 Conjugate, PCV7 (Prevnar7) 2003-01-01 00:00:00 Completed [facility] DTAP 2003-01-01 00:00:00 Completed [facility] HIB 4 Dose Schedule 2003-01-01 00:00:00 Completed [facility] Hep B, Adol or Pedi Dosage 2003-01-01 00:00:00 Completed [facility] Pneumococcal 7 Conjugate, PCV7 (Prevnar7) 2003-01-01 00:00:00 Completed [facility] DTAP 2003-01-01 00:00:00 Completed [facility] HIB 4 Dose Schedule 2003-01-01 00:00:00 Completed [facility] Hep B, Adol or Pedi Dosage 2003-01-01 00:00:00 Completed [facility] Pneumococcal 7 Conjugate, PCV7 (Prevnar7) 2003-01-01 00:00:00 Completed [facility] DTAP 2003-01-01 00:00:00 Completed [facility] HIB 4 Dose Schedule 2003-01-01 00:00:00 Completed [facility] Hep B, Adol or Pedi Dosage 2003-01-01 00:00:00 Completed [facility] Pneumococcal 7 Conjugate, PCV7 (Prevnar7) 2003-01-01 00:00:00 Completed [facility] DTAP 2003-01-01 00:00:00 Completed [facility] HIB 4 Dose Schedule 2003-01-01 00:00:00 Completed [facility] Hep B, Adol or Pedi Dosage 2003-01-01 00:00:00 Completed [facility] Pneumococcal 7 Conjugate, PCV7 (Prevnar7) 2003-01-01 00:00:00 Completed [facility] DTAP 2003-01-01 00:00:00 Completed [facility] HIB 4 Dose Schedule 2003-01-01 00:00:00 Completed [facility] Hep B, Adol or Pedi Dosage 2003-01-01 00:00:00 Completed [facility] Pneumococcal 7 Conjugate, PCV7 (Prevnar7) 2003-01-01 00:00:00 Completed [facility] DTAP 2003-01-01 00:00:00 Completed [facility] HIB 4 Dose Schedule 2003-01-01 00:00:00 Completed [facility] Hep B, Adol or Pedi Dosage 2003-01-01 00:00:00 Completed [facility] Pneumococcal 7 Conjugate, PCV7 (Prevnar7) 2003-01-01 00:00:00 Completed [facility] DTAP 2003-01-01 00:00:00 Completed [facility] HIB 4 Dose Schedule 2003-01-01 00:00:00 Completed [facility] Hep B, Adol or Pedi Dosage 2003-01-01 00:00:00 Completed [facility] Pneumococcal 7 Conjugate, PCV7 (Prevnar7) 2003-01-01 00:00:00 Completed [facility] DTAP 2003-01-01 00:00:00 Completed [facility] HIB 4 Dose Schedule 2003-01-01 00:00:00 Completed [facility] Hep B, Adol or Pedi Dosage 2003-01-01 00:00:00 Completed [facility] Pneumococcal 7 Conjugate, PCV7 (Prevnar7) 2003-01-01 00:00:00 Completed [facility] DTAP 2003-01-01 00:00:00 Completed [facility] HIB 4 Dose Schedule 2003-01-01 00:00:00 Completed [facility] Hep B, Adol or Pedi Dosage 2003-01-01 00:00:00 Completed [facility] Pneumococcal 7 Conjugate, PCV7 (Prevnar7) 2003-01-01 00:00:00 Completed [facility] DTAP 2003-01-01 00:00:00 Completed [facility] HIB 4 Dose Schedule 2003-01-01 00:00:00 Completed [facility] Hep B, Adol or Pedi Dosage 2003-01-01 00:00:00 Completed [facility] Pneumococcal 7 Conjugate, PCV7 (Prevnar7) 2003-01-01 00:00:00 Completed [facility] DTAP 2003-01-01 00:00:00 Completed [facility] HIB 4 Dose Schedule 2003-01-01 00:00:00 Completed [facility] Hep B, Adol or Pedi Dosage 2003-01-01 00:00:00 Completed [facility] Pneumococcal 7 Conjugate, PCV7 (Prevnar7) 2003-01-01 00:00:00 Completed [facility] DTAP 2003-01-01 00:00:00 Completed [facility] HIB 4 Dose Schedule 2003-01-01 00:00:00 Completed [facility] Hep B, Adol or Pedi Dosage 2003-01-01 00:00:00 Completed [facility] Pneumococcal 7 Conjugate, PCV7 (Prevnar7) 2003-01-01 00:00:00 Completed [facility] DTAP 2002 00:00:00 Completed [facility] HIB 4 Dose Schedule 2002 00:00:00 Completed [facility] Pneumococcal 7 Conjugate, PCV7 (Prevnar7) 2002 00:00:00 Completed [facility] Polio (IPV/OPV) 2002 00:00:00 Completed [facility] DTAP 2002 00:00:00 Completed [facility] HIB 4 Dose Schedule 2002 00:00:00 Completed [facility] Pneumococcal 7 Conjugate, PCV7 (Prevnar7) 2002 00:00:00 Completed [facility] Polio (IPV/OPV) 2002 00:00:00 Completed [facility] DTAP 2002 00:00:00 Completed [facility] HIB 4 Dose Schedule 2002 00:00:00 Completed [facility] Pneumococcal 7 Conjugate, PCV7 (Prevnar7) 2002 00:00:00 Completed [facility] Polio (IPV/OPV) 2002 00:00:00 Completed [facility] DTAP 2002 00:00:00 Completed [facility] HIB 4 Dose Schedule 2002 00:00:00 Completed [facility] Pneumococcal 7 Conjugate, PCV7 (Prevnar7) 2002 00:00:00 Completed [facility] Polio (IPV/OPV) 2002 00:00:00 Completed [facility] DTAP 2002 00:00:00 Completed [facility] HIB 4 Dose Schedule 2002 00:00:00 Completed [facility] Pneumococcal 7 Conjugate, PCV7 (Prevnar7) 2002 00:00:00 Completed [facility] Polio (IPV/OPV) 2002 00:00:00 Completed [facility] DTAP 2002 00:00:00 Completed [facility] HIB 4 Dose Schedule 2002 00:00:00 Completed [facility] Pneumococcal 7 Conjugate, PCV7 (Prevnar7) 2002 00:00:00 Completed [facility] Polio (IPV/OPV) 2002 00:00:00 Completed [facility] DTAP 2002 00:00:00 Completed [facility] HIB 4 Dose Schedule 2002 00:00:00 Completed [facility] Pneumococcal 7 Conjugate, PCV7 (Prevnar7) 2002 00:00:00 Completed [facility] Polio (IPV/OPV) 2002 00:00:00 Completed [facility] DTAP 2002 00:00:00 Completed [facility] HIB 4 Dose Schedule 2002 00:00:00 Completed [facility] Pneumococcal 7 Conjugate, PCV7 (Prevnar7) 2002 00:00:00 Completed [facility] Polio (IPV/OPV) 2002 00:00:00 Completed [facility] DTAP 2002 00:00:00 Completed [facility] HIB 4 Dose Schedule 2002 00:00:00 Completed [facility] Pneumococcal 7 Conjugate, PCV7 (Prevnar7) 2002 00:00:00 Completed [facility] Polio (IPV/OPV) 2002 00:00:00 Completed [facility] DTAP 2002 00:00:00 Completed [facility] HIB 4 Dose Schedule 2002 00:00:00 Completed [facility] Pneumococcal 7 Conjugate, PCV7 (Prevnar7) 2002 00:00:00 Completed [facility] Polio (IPV/OPV) 2002 00:00:00 Completed [facility] DTAP 2002 00:00:00 Completed [facility] HIB 4 Dose Schedule 2002 00:00:00 Completed [facility] Pneumococcal 7 Conjugate, PCV7 (Prevnar7) 2002 00:00:00 Completed [facility] Polio (IPV/OPV) 2002 00:00:00 Completed [facility] DTAP 2002 00:00:00 Completed [facility] HIB 4 Dose Schedule 2002 00:00:00 Completed [facility] Pneumococcal 7 Conjugate, PCV7 (Prevnar7) 2002 00:00:00 Completed [facility] Polio (IPV/OPV) 2002 00:00:00 Completed [facility] DTAP 2002 00:00:00 Completed [facility] HIB 4 Dose Schedule 2002 00:00:00 Completed [facility] Pneumococcal 7 Conjugate, PCV7 (Prevnar7) 2002 00:00:00 Completed [facility] Polio (IPV/OPV) 2002 00:00:00 Completed [facility] DTAP 2002 00:00:00 Completed [facility] HIB 4 Dose Schedule 2002 00:00:00 Completed [facility] Pneumococcal 7 Conjugate, PCV7 (Prevnar7) 2002 00:00:00 Completed [facility] Polio (IPV/OPV) 2002 00:00:00 Completed [facility] DTAP 2002 00:00:00 Completed [facility] HIB 4 Dose Schedule 2002 00:00:00 Completed [facility] Pneumococcal 7 Conjugate, PCV7 (Prevnar7) 2002 00:00:00 Completed [facility] Polio (IPV/OPV) 2002 00:00:00 Completed [facility] DTAP 2002 00:00:00 Completed [facility] HIB 4 Dose Schedule 2002 00:00:00 Completed [facility] Pneumococcal 7 Conjugate, PCV7 (Prevnar7) 2002 00:00:00 Completed [facility] Polio (IPV/OPV) 2002 00:00:00 Completed [facility] DTAP 2002 00:00:00 Completed [facility] HIB 4 Dose Schedule 2002 00:00:00 Completed [facility] Pneumococcal 7 Conjugate, PCV7 (Prevnar7) 2002 00:00:00 Completed [facility] Polio (IPV/OPV) 2002 00:00:00 Completed [facility] DTAP 2002 00:00:00 Completed [facility] HIB 4 Dose Schedule 2002 00:00:00 Completed [facility] Pneumococcal 7 Conjugate, PCV7 (Prevnar7) 2002 00:00:00 Completed [facility] Polio (IPV/OPV) 2002 00:00:00 Completed [facility] DTAP 2002 00:00:00 Completed [facility] HIB 4 Dose Schedule 2002 00:00:00 Completed [facility] Pneumococcal 7 Conjugate, PCV7 (Prevnar7) 2002 00:00:00 Completed [facility] Polio (IPV/OPV) 2002 00:00:00 Completed [facility] DTAP 2002 00:00:00 Completed [facility] HIB 4 Dose Schedule 2002 00:00:00 Completed [facility] Pneumococcal 7 Conjugate, PCV7 (Prevnar7) 2002 00:00:00 Completed [facility] Polio (IPV/OPV) 2002 00:00:00 Completed [facility] DTAP 2002 00:00:00 Completed [facility] HIB 4 Dose Schedule 2002 00:00:00 Completed [facility] Pneumococcal 7 Conjugate, PCV7 (Prevnar7) 2002 00:00:00 Completed [facility] Polio (IPV/OPV) 2002 00:00:00 Completed [facility] DTAP 2002 00:00:00 Completed [facility] HIB 4 Dose Schedule 2002 00:00:00 Completed [facility] Pneumococcal 7 Conjugate, PCV7 (Prevnar7) 2002 00:00:00 Completed [facility] Polio (IPV/OPV) 2002 00:00:00 Completed [facility] DTAP 2002 00:00:00 Completed [facility] HIB 4 Dose Schedule 2002 00:00:00 Completed [facility] Pneumococcal 7 Conjugate, PCV7 (Prevnar7) 2002 00:00:00 Completed [facility] Polio (IPV/OPV) 2002 00:00:00 Completed [facility] DTAP 2002 00:00:00 Completed [facility] HIB 4 Dose Schedule 2002 00:00:00 Completed [facility] Pneumococcal 7 Conjugate, PCV7 (Prevnar7) 2002 00:00:00 Completed [facility] Polio (IPV/OPV) 2002 00:00:00 Completed [facility] DTAP 2002 00:00:00 Completed [facility] HIB 4 Dose Schedule 2002 00:00:00 Completed [facility] Pneumococcal 7 Conjugate, PCV7 (Prevnar7) 2002 00:00:00 Completed [facility] Polio (IPV/OPV) 2002 00:00:00 Completed [facility] DTAP 2002 00:00:00 Completed [facility] HIB 4 Dose Schedule 2002 00:00:00 Completed [facility] Pneumococcal 7 Conjugate, PCV7 (Prevnar7) 2002 00:00:00 Completed [facility] Polio (IPV/OPV) 2002 00:00:00 Completed [facility] DTAP 2002 00:00:00 Completed [facility] HIB 4 Dose Schedule 2002 00:00:00 Completed [facility] Pneumococcal 7 Conjugate, PCV7 (Prevnar7) 2002 00:00:00 Completed [facility] Polio (IPV/OPV) 2002 00:00:00 Completed [facility] DTAP 2002 00:00:00 Completed [facility] HIB 4 Dose Schedule 2002 00:00:00 Completed [facility] Pneumococcal 7 Conjugate, PCV7 (Prevnar7) 2002 00:00:00 Completed [facility] Polio (IPV/OPV) 2002 00:00:00 Completed [facility] DTAP 2002 00:00:00 Completed [facility] HIB 4 Dose Schedule 2002 00:00:00 Completed [facility] Pneumococcal 7 Conjugate, PCV7 (Prevnar7) 2002 00:00:00 Completed [facility] Polio (IPV/OPV) 2002 00:00:00 Completed [facility] DTAP 2002 00:00:00 Completed [facility] HIB 4 Dose Schedule 2002 00:00:00 Completed [facility] Pneumococcal 7 Conjugate, PCV7 (Prevnar7) 2002 00:00:00 Completed [facility] Polio (IPV/OPV) 2002 00:00:00 Completed [facility] DTAP 2002 00:00:00 Completed [facility] HIB 4 Dose Schedule 2002 00:00:00 Completed [facility] Pneumococcal 7 Conjugate, PCV7 (Prevnar7) 2002 00:00:00 Completed [facility] Polio (IPV/OPV) 2002 00:00:00 Completed [facility] DTAP 2002 00:00:00 Completed [facility] HIB 4 Dose Schedule 2002 00:00:00 Completed [facility] Pneumococcal 7 Conjugate, PCV7 (Prevnar7) 2002 00:00:00 Completed [facility] Polio (IPV/OPV) 2002 00:00:00 Completed [facility] DTAP 2002 00:00:00 Completed [facility] HIB 4 Dose Schedule 2002 00:00:00 Completed [facility] Pneumococcal 7 Conjugate, PCV7 (Prevnar7) 2002 00:00:00 Completed [facility] Polio (IPV/OPV) 2002 00:00:00 Completed [facility] DTAP 2002 00:00:00 Completed [facility] HIB 4 Dose Schedule 2002 00:00:00 Completed [facility] Pneumococcal 7 Conjugate, PCV7 (Prevnar7) 2002 00:00:00 Completed [facility] Polio (IPV/OPV) 2002 00:00:00 Completed [facility] DTAP 2002 00:00:00 Completed [facility] HIB 4 Dose Schedule 2002 00:00:00 Completed [facility] Pneumococcal 7 Conjugate, PCV7 (Prevnar7) 2002 00:00:00 Completed [facility] Polio (IPV/OPV) 2002 00:00:00 Completed [facility] DTAP 2002 00:00:00 Completed [facility] HIB 4 Dose Schedule 2002 00:00:00 Completed [facility] Pneumococcal 7 Conjugate, PCV7 (Prevnar7) 2002 00:00:00 Completed [facility] Polio (IPV/OPV) 2002 00:00:00 Completed [facility] DTAP 2002 00:00:00 Completed [facility] HIB 4 Dose Schedule 2002 00:00:00 Completed [facility] Pneumococcal 7 Conjugate, PCV7 (Prevnar7) 2002 00:00:00 Completed [facility] Polio (IPV/OPV) 2002 00:00:00 Completed [facility] DTAP 2002 00:00:00 Completed [facility] HIB 4 Dose Schedule 2002 00:00:00 Completed [facility] Pneumococcal 7 Conjugate, PCV7 (Prevnar7) 2002 00:00:00 Completed [facility] Polio (IPV/OPV) 2002 00:00:00 Completed [facility] DTAP 2002 00:00:00 Completed [facility] HIB 4 Dose Schedule 2002 00:00:00 Completed [facility] Pneumococcal 7 Conjugate, PCV7 (Prevnar7) 2002 00:00:00 Completed [facility] Polio (IPV/OPV) 2002 00:00:00 Completed [facility] DTAP 2002 00:00:00 Completed [facility] HIB 4 Dose Schedule 2002 00:00:00 Completed [facility] Pneumococcal 7 Conjugate, PCV7 (Prevnar7) 2002 00:00:00 Completed [facility] Polio (IPV/OPV) 2002 00:00:00 Completed [facility] DTAP 2002 00:00:00 Completed [facility] HIB 4 Dose Schedule 2002 00:00:00 Completed [facility] Pneumococcal 7 Conjugate, PCV7 (Prevnar7) 2002 00:00:00 Completed [facility] Polio (IPV/OPV) 2002 00:00:00 Completed [facility] DTAP 2002 00:00:00 Completed [facility] HIB 4 Dose Schedule 2002 00:00:00 Completed [facility] Pneumococcal 7 Conjugate, PCV7 (Prevnar7) 2002 00:00:00 Completed [facility] Polio (IPV/OPV) 2002 00:00:00 Completed [facility] DTAP 2002 00:00:00 Completed [facility] HIB 4 Dose Schedule 2002 00:00:00 Completed [facility] [facility] Pneumococcal 7 Conjugate, PCV7 (Prevnar7) 2002 00:00:00 Completed [facility] Polio (IPV/OPV) 2002 00:00:00 Completed [facility] DTAP 2002 00:00:00 Completed [facility] HIB 4 Dose Schedule 2002 00:00:00 Completed [facility] Pneumococcal 7 Conjugate, PCV7 (Prevnar7) 2002 00:00:00 Completed [facility] Polio (IPV/OPV) 2002 00:00:00 Completed [facility] DTAP 2002 00:00:00 Completed [facility] HIB 4 Dose Schedule 2002 00:00:00 Completed [facility] Pneumococcal 7 Conjugate, PCV7 (Prevnar7) 2002 00:00:00 Completed [facility] Polio (IPV/OPV) 2002 00:00:00 Completed [facility] DTAP 2002 00:00:00 Completed [facility] HIB 4 Dose Schedule 2002 00:00:00 Completed [facility] Pneumococcal 7 Conjugate, PCV7 (Prevnar7) 2002 00:00:00 Completed [facility] Polio (IPV/OPV) 2002 00:00:00 Completed [facility] DTAP 2002 00:00:00 Completed [facility] HIB 4 Dose Schedule 2002 00:00:00 Completed [facility] Pneumococcal 7 Conjugate, PCV7 (Prevnar7) 2002 00:00:00 Completed [facility] Polio (IPV/OPV) 2002 00:00:00 Completed [facility] DTAP 2002 00:00:00 Completed [facility] HIB 4 Dose Schedule 2002 00:00:00 Completed [facility] Pneumococcal 7 Conjugate, PCV7 (Prevnar7) 2002 00:00:00 Completed [facility] Polio (IPV/OPV) 2002 00:00:00 Completed [facility] DTAP 2002 00:00:00 Completed [facility] HIB 4 Dose Schedule 2002 00:00:00 Completed [facility] Pneumococcal 7 Conjugate, PCV7 (Prevnar7) 2002 00:00:00 Completed [facility] Polio (IPV/OPV) 2002 00:00:00 Completed [facility] DTAP 2002 00:00:00 Completed [facility] HIB 4 Dose Schedule 2002 00:00:00 Completed [facility] Pneumococcal 7 Conjugate, PCV7 (Prevnar7) 2002 00:00:00 Completed [facility] Polio (IPV/OPV) 2002 00:00:00 Completed [facility] DTAP 2002 00:00:00 Completed [facility] HIB 4 Dose Schedule 2002 00:00:00 Completed [facility] Pneumococcal 7 Conjugate, PCV7 (Prevnar7) 2002 00:00:00 Completed [facility] Polio (IPV/OPV) 2002 00:00:00 Completed [facility] DTAP 2002 00:00:00 Completed [facility] HIB 4 Dose Schedule 2002 00:00:00 Completed [facility] Pneumococcal 7 Conjugate, PCV7 (Prevnar7) 2002 00:00:00 Completed [facility] Polio (IPV/OPV) 2002 00:00:00 Completed [facility] DTAP 2002 00:00:00 Completed [facility] HIB 4 Dose Schedule 2002 00:00:00 Completed [facility] Pneumococcal 7 Conjugate, PCV7 (Prevnar7) 2002 00:00:00 Completed [facility] Polio (IPV/OPV) 2002 00:00:00 Completed [facility] DTAP 2002 00:00:00 Completed [facility] HIB 4 Dose Schedule 2002 00:00:00 Completed [facility] Pneumococcal 7 Conjugate, PCV7 (Prevnar7) 2002 00:00:00 Completed [facility] Polio (IPV/OPV) 2002 00:00:00 Completed [facility] DTAP 2002 00:00:00 Completed [facility] HIB 4 Dose Schedule 2002 00:00:00 Completed [facility] Pneumococcal 7 Conjugate, PCV7 (Prevnar7) 2002 00:00:00 Completed [facility] Polio (IPV/OPV) 2002 00:00:00 Completed [facility] DTAP 2002 00:00:00 Completed [facility] HIB 4 Dose Schedule 2002 00:00:00 Completed [facility] Pneumococcal 7 Conjugate, PCV7 (Prevnar7) 2002 00:00:00 Completed [facility] Polio (IPV/OPV) 2002 00:00:00 Completed [facility] DTAP 2002 00:00:00 Completed [facility] HIB 4 Dose Schedule 2002 00:00:00 Completed [facility] Pneumococcal 7 Conjugate, PCV7 (Prevnar7) 2002 00:00:00 Completed [facility] Polio (IPV/OPV) 2002 00:00:00 Completed [facility] DTAP 2002 00:00:00 Completed [facility] HIB 4 Dose Schedule 2002 00:00:00 Completed [facility] Pneumococcal 7 Conjugate, PCV7 (Prevnar7) 2002 00:00:00 Completed [facility] Polio (IPV/OPV) 2002 00:00:00 Completed [facility] DTAP 2002 00:00:00 Completed [facility] HIB 4 Dose Schedule 2002 00:00:00 Completed [facility] Pneumococcal 7 Conjugate, PCV7 (Prevnar7) 2002 00:00:00 Completed [facility] Polio (IPV/OPV) 2002 00:00:00 Completed [facility] DTAP 2002 00:00:00 Completed [facility] HIB 4 Dose Schedule 2002 00:00:00 Completed [facility] Pneumococcal 7 Conjugate, PCV7 (Prevnar7) 2002 00:00:00 Completed [facility] Polio (IPV/OPV) 2002 00:00:00 Completed [facility] DTAP 2002 00:00:00 Completed [facility] HIB 4 Dose Schedule 2002 00:00:00 Completed [facility] Pneumococcal 7 Conjugate, PCV7 (Prevnar7) 2002 00:00:00 Completed [facility] Polio (IPV/OPV) 2002 00:00:00 Completed [facility] DTAP 2002 00:00:00 Completed [facility] HIB 4 Dose Schedule 2002 00:00:00 Completed [facility] Pneumococcal 7 Conjugate, PCV7 (Prevnar7) 2002 00:00:00 Completed [facility] Polio (IPV/OPV) 2002 00:00:00 Completed [facility] DTAP 2002 00:00:00 Completed [facility] HIB 4 Dose Schedule 2002 00:00:00 Completed [facility] Pneumococcal 7 Conjugate, PCV7 (Prevnar7) 2002 00:00:00 Completed [facility] Polio (IPV/OPV) 2002 00:00:00 Completed [facility] DTAP 2002 00:00:00 Completed [facility] HIB 4 Dose Schedule 2002 00:00:00 Completed [facility] Pneumococcal 7 Conjugate, PCV7 (Prevnar7) 2002 00:00:00 Completed [facility] Polio (IPV/OPV) 2002 00:00:00 Completed [facility] DTAP 2002 00:00:00 Completed [facility] HIB 4 Dose Schedule 2002 00:00:00 Completed [facility] Pneumococcal 7 Conjugate, PCV7 (Prevnar7) 2002 00:00:00 Completed [facility] Polio (IPV/OPV) 2002 00:00:00 Completed [facility] DTAP 2002 00:00:00 Completed [facility] HIB 4 Dose Schedule 2002 00:00:00 Completed [facility] Pneumococcal 7 Conjugate, PCV7 (Prevnar7) 2002 00:00:00 Completed [facility] Polio (IPV/OPV) 2002 00:00:00 Completed [facility] DTAP 2002 00:00:00 Completed [facility] HIB 4 Dose Schedule 2002 00:00:00 Completed [facility] Pneumococcal 7 Conjugate, PCV7 (Prevnar7) 2002 00:00:00 Completed [facility] Polio (IPV/OPV) 2002 00:00:00 Completed [facility] DTAP 2002 00:00:00 Completed [facility] HIB 4 Dose Schedule 2002 00:00:00 Completed [facility] Pneumococcal 7 Conjugate, PCV7 (Prevnar7) 2002 00:00:00 Completed [facility] Polio (IPV/OPV) 2002 00:00:00 Completed [facility] DTAP 2002 00:00:00 Completed [facility] HIB 4 Dose Schedule 2002 00:00:00 Completed [facility] Pneumococcal 7 Conjugate, PCV7 (Prevnar7) 2002 00:00:00 Completed [facility] Polio (IPV/OPV) 2002 00:00:00 Completed [facility] DTAP 2002 00:00:00 Completed [facility] HIB 4 Dose Schedule 2002 00:00:00 Completed [facility] Pneumococcal 7 Conjugate, PCV7 (Prevnar7) 2002 00:00:00 Completed [facility] Polio (IPV/OPV) 2002 00:00:00 Completed [facility] DTAP 2002 00:00:00 Completed [facility] HIB 4 Dose Schedule 2002 00:00:00 Completed [facility] Pneumococcal 7 Conjugate, PCV7 (Prevnar7) 2002 00:00:00 Completed [facility] Polio (IPV/OPV) 2002 00:00:00 Completed [facility] DTAP 2002 00:00:00 Completed [facility] HIB 4 Dose Schedule 2002 00:00:00 Completed [facility] Pneumococcal 7 Conjugate, PCV7 (Prevnar7) 2002 00:00:00 Completed [facility] Polio (IPV/OPV) 2002 00:00:00 Completed [facility] DTAP 2002 00:00:00 Completed [facility] HIB 4 Dose Schedule 2002 00:00:00 Completed [facility] Pneumococcal 7 Conjugate, PCV7 (Prevnar7) 2002 00:00:00 Completed [facility] Polio (IPV/OPV) 2002 00:00:00 Completed [facility] DTAP 2002 00:00:00 Completed [facility] HIB 4 Dose Schedule 2002 00:00:00 Completed [facility] Pneumococcal 7 Conjugate, PCV7 (Prevnar7) 2002 00:00:00 Completed [facility] Polio (IPV/OPV) 2002 00:00:00 Completed [facility] DTAP 2002 00:00:00 Completed [facility] HIB 4 Dose Schedule 2002 00:00:00 Completed [facility] Pneumococcal 7 Conjugate, PCV7 (Prevnar7) 2002 00:00:00 Completed [facility] Polio (IPV/OPV) 2002 00:00:00 Completed [facility] DTAP 2002 00:00:00 Completed [facility] HIB 4 Dose Schedule 2002 00:00:00 Completed [facility] Pneumococcal 7 Conjugate, PCV7 (Prevnar7) 2002 00:00:00 Completed [facility] Polio (IPV/OPV) 2002 00:00:00 Completed [facility] DTAP 2002 00:00:00 Completed [facility] HIB 4 Dose Schedule 2002 00:00:00 Completed [facility] Pneumococcal 7 Conjugate, PCV7 (Prevnar7) 2002 00:00:00 Completed [facility] Polio (IPV/OPV) 2002 00:00:00 Completed [facility] DTAP 2002 00:00:00 Completed [facility] HIB 4 Dose Schedule 2002 00:00:00 Completed [facility] Hep B, Adol or Pedi Dosage 2002 00:00:00 Completed [facility] Polio (IPV/OPV) 2002 00:00:00 Completed [facility] DTAP 2002 00:00:00 Completed [facility] HIB 4 Dose Schedule 2002 00:00:00 Completed [facility] Hep B, Adol or Pedi Dosage 2002 00:00:00 Completed [facility] Polio (IPV/OPV) 2002 00:00:00 Completed [facility] DTAP 2002 00:00:00 Completed [facility] HIB 4 Dose Schedule 2002 00:00:00 Completed [facility] Hep B, Adol or Pedi Dosage 2002 00:00:00 Completed [facility] Polio (IPV/OPV) 2002 00:00:00 Completed [facility] DTAP 2002 00:00:00 Completed [facility] HIB 4 Dose Schedule 2002 00:00:00 Completed [facility] Hep B, Adol or Pedi Dosage 2002 00:00:00 Completed [facility] Polio (IPV/OPV) 2002 00:00:00 Completed [facility] DTAP 2002 00:00:00 Completed [facility] HIB 4 Dose Schedule 2002 00:00:00 Completed [facility] Hep B, Adol or Pedi Dosage 2002 00:00:00 Completed [facility] Polio (IPV/OPV) 2002 00:00:00 Completed [facility] DTAP 2002 00:00:00 Completed [facility] HIB 4 Dose Schedule 2002 00:00:00 Completed [facility] Hep B, Adol or Pedi Dosage 2002 00:00:00 Completed [facility] Polio (IPV/OPV) 2002 00:00:00 Completed [facility] DTAP 2002 00:00:00 Completed [facility] HIB 4 Dose Schedule 2002 00:00:00 Completed [facility] Hep B, Adol or Pedi Dosage 2002 00:00:00 Completed [facility] Polio (IPV/OPV) 2002 00:00:00 Completed [facility] DTAP 2002 00:00:00 Completed [facility] HIB 4 Dose Schedule 2002 00:00:00 Completed [facility] Hep B, Adol or Pedi Dosage 2002 00:00:00 Completed [facility] Polio (IPV/OPV) 2002 00:00:00 Completed [facility] DTAP 2002 00:00:00 Completed [facility] HIB 4 Dose Schedule 2002 00:00:00 Completed [facility] Hep B, Adol or Pedi Dosage 2002 00:00:00 Completed [facility] Polio (IPV/OPV) 2002 00:00:00 Completed [facility] DTAP 2002 00:00:00 Completed [facility] HIB 4 Dose Schedule 2002 00:00:00 Completed [facility] Hep B, Adol or Pedi Dosage 2002 00:00:00 Completed [facility] Polio (IPV/OPV) 2002 00:00:00 Completed [facility] DTAP 2002 00:00:00 Completed [facility] HIB 4 Dose Schedule 2002 00:00:00 Completed [facility] Hep B, Adol or Pedi Dosage 2002 00:00:00 Completed [facility] Polio (IPV/OPV) 2002 00:00:00 Completed [facility] DTAP 2002 00:00:00 Completed [facility] HIB 4 Dose Schedule 2002 00:00:00 Completed [facility] Hep B, Adol or Pedi Dosage 2002 00:00:00 Completed [facility] Polio (IPV/OPV) 2002 00:00:00 Completed [facility] DTAP 2002 00:00:00 Completed [facility] HIB 4 Dose Schedule 2002 00:00:00 Completed [facility] Hep B, Adol or Pedi Dosage 2002 00:00:00 Completed [facility] Polio (IPV/OPV) 2002 00:00:00 Completed [facility] DTAP 2002 00:00:00 Completed [facility] HIB 4 Dose Schedule 2002 00:00:00 Completed [facility] Hep B, Adol or Pedi Dosage 2002 00:00:00 Completed [facility] Polio (IPV/OPV) 2002 00:00:00 Completed [facility] DTAP 2002 00:00:00 Completed [facility] HIB 4 Dose Schedule 2002 00:00:00 Completed [facility] Hep B, Adol or Pedi Dosage 2002 00:00:00 Completed [facility] Polio (IPV/OPV) 2002 00:00:00 Completed [facility] DTAP 2002 00:00:00 Completed [facility] HIB 4 Dose Schedule 2002 00:00:00 Completed [facility] Hep B, Adol or Pedi Dosage 2002 00:00:00 Completed [facility] Polio (IPV/OPV) 2002 00:00:00 Completed [facility] DTAP 2002 00:00:00 Completed [facility] HIB 4 Dose Schedule 2002 00:00:00 Completed [facility] Hep B, Adol or Pedi Dosage 2002 00:00:00 Completed [facility] Polio (IPV/OPV) 2002 00:00:00 Completed [facility] DTAP 2002 00:00:00 Completed [facility] HIB 4 Dose Schedule 2002 00:00:00 Completed [facility] Hep B, Adol or Pedi Dosage 2002 00:00:00 Completed [facility] Polio (IPV/OPV) 2002 00:00:00 Completed [facility] DTAP 2002 00:00:00 Completed [facility] HIB 4 Dose Schedule 2002 00:00:00 Completed [facility] Hep B, Adol or Pedi Dosage 2002 00:00:00 Completed [facility] Polio (IPV/OPV) 2002 00:00:00 Completed [facility] DTAP 2002 00:00:00 Completed [facility] HIB 4 Dose Schedule 2002 00:00:00 Completed [facility] Hep B, Adol or Pedi Dosage 2002 00:00:00 Completed [facility] Polio (IPV/OPV) 2002 00:00:00 Completed [facility] DTAP 2002 00:00:00 Completed [facility] HIB 4 Dose Schedule 2002 00:00:00 Completed [facility] Hep B, Adol or Pedi Dosage 2002 00:00:00 Completed [facility] Polio (IPV/OPV) 2002 00:00:00 Completed [facility] DTAP 2002 00:00:00 Completed [facility] HIB 4 Dose Schedule 2002 00:00:00 Completed [facility] Hep B, Adol or Pedi Dosage 2002 00:00:00 Completed [facility] Polio (IPV/OPV) 2002 00:00:00 Completed [facility] DTAP 2002 00:00:00 Completed [facility] HIB 4 Dose Schedule 2002 00:00:00 Completed [facility] Hep B, Adol or Pedi Dosage 2002 00:00:00 Completed [facility] Polio (IPV/OPV) 2002 00:00:00 Completed [facility] DTAP 2002 00:00:00 Completed [facility] HIB 4 Dose Schedule 2002 00:00:00 Completed [facility] Hep B, Adol or Pedi Dosage 2002 00:00:00 Completed [facility] Polio (IPV/OPV) 2002 00:00:00 Completed [facility] DTAP 2002 00:00:00 Completed [facility] HIB 4 Dose Schedule 2002 00:00:00 Completed [facility] Hep B, Adol or Pedi Dosage 2002 00:00:00 Completed [facility] Polio (IPV/OPV) 2002 00:00:00 Completed [facility] DTAP 2002 00:00:00 Completed [facility] HIB 4 Dose Schedule 2002 00:00:00 Completed [facility] Hep B, Adol or Pedi Dosage 2002 00:00:00 Completed [facility] Polio (IPV/OPV) 2002 00:00:00 Completed [facility] DTAP 2002 00:00:00 Completed [facility] HIB 4 Dose Schedule 2002 00:00:00 Completed [facility] Hep B, Adol or Pedi Dosage 2002 00:00:00 Completed [facility] Polio (IPV/OPV) 2002 00:00:00 Completed [facility] DTAP 2002 00:00:00 Completed [facility] HIB 4 Dose Schedule 2002 00:00:00 Completed [facility] Hep B, Adol or Pedi Dosage 2002 00:00:00 Completed [facility] Polio (IPV/OPV) 2002 00:00:00 Completed [facility] DTAP 2002 00:00:00 Completed [facility] HIB 4 Dose Schedule 2002 00:00:00 Completed [facility] Hep B, Adol or Pedi Dosage 2002 00:00:00 Completed [facility] Polio (IPV/OPV) 2002 00:00:00 Completed [facility] DTAP 2002 00:00:00 Completed [facility] HIB 4 Dose Schedule 2002 00:00:00 Completed [facility] Hep B, Adol or Pedi Dosage 2002 00:00:00 Completed [facility] Polio (IPV/OPV) 2002 00:00:00 Completed [facility] DTAP 2002 00:00:00 Completed [facility] HIB 4 Dose Schedule 2002 00:00:00 Completed [facility] Hep B, Adol or Pedi Dosage 2002 00:00:00 Completed [facility] Polio (IPV/OPV) 2002 00:00:00 Completed [facility] DTAP 2002 00:00:00 Completed [facility] HIB 4 Dose Schedule 2002 00:00:00 Completed [facility] Hep B, Adol or Pedi Dosage 2002 00:00:00 Completed [facility] Polio (IPV/OPV) 2002 00:00:00 Completed [facility] DTAP 2002 00:00:00 Completed [facility] HIB 4 Dose Schedule 2002 00:00:00 Completed [facility] Hep B, Adol or Pedi Dosage 2002 00:00:00 Completed [facility] Polio (IPV/OPV) 2002 00:00:00 Completed [facility] DTAP 2002 00:00:00 Completed [facility] HIB 4 Dose Schedule 2002 00:00:00 Completed [facility] Hep B, Adol or Pedi Dosage 2002 00:00:00 Completed [facility] Polio (IPV/OPV) 2002 00:00:00 Completed [facility] DTAP 2002 00:00:00 Completed [facility] HIB 4 Dose Schedule 2002 00:00:00 [facility] [facility] Hep B, Adol or Pedi Dosage 2002 00:00:00 Completed [facility] Polio (IPV/OPV) 2002 00:00:00 Completed [facility] DTAP 2002 00:00:00 Completed [facility] HIB 4 Dose Schedule 2002 00:00:00 Completed [facility] Hep B, Adol or Pedi Dosage 2002 00:00:00 Completed [facility] Polio (IPV/OPV) 2002 00:00:00 Completed [facility] DTAP 2002 00:00:00 Completed [facility] HIB 4 Dose Schedule 2002 00:00:00 Completed [facility] Hep B, Adol or Pedi Dosage 2002 00:00:00 Completed [facility] Polio (IPV/OPV) 2002 00:00:00 Completed [facility] DTAP 2002 00:00:00 Completed [facility] HIB 4 Dose Schedule 2002 00:00:00 Completed [facility] Hep B, Adol or Pedi Dosage 2002 00:00:00 Completed [facility] Polio (IPV/OPV) 2002 00:00:00 Completed [facility] DTAP 2002 00:00:00 Completed [facility] HIB 4 Dose Schedule 2002 00:00:00 Completed [facility] Hep B, Adol or Pedi Dosage 2002 00:00:00 Completed [facility] Polio (IPV/OPV) 2002 00:00:00 Completed [facility] DTAP 2002 00:00:00 Completed [facility] HIB 4 Dose Schedule 2002 00:00:00 Completed [facility] Hep B, Adol or Pedi Dosage 2002 00:00:00 Completed [facility] Polio (IPV/OPV) 2002 00:00:00 Completed [facility] DTAP 2002 00:00:00 Completed [facility] HIB 4 Dose Schedule 2002 00:00:00 Completed [facility] Hep B, Adol or Pedi Dosage 2002 00:00:00 Completed [facility] Polio (IPV/OPV) 2002 00:00:00 Completed [facility] DTAP 2002 00:00:00 Completed [facility] HIB 4 Dose Schedule 2002 00:00:00 Completed [facility] Hep B, Adol or Pedi Dosage 2002 00:00:00 Completed [facility] Polio (IPV/OPV) 2002 00:00:00 Completed [facility] DTAP 2002 00:00:00 Completed [facility] HIB 4 Dose Schedule 2002 00:00:00 Completed [facility] Hep B, Adol or Pedi Dosage 2002 00:00:00 Completed [facility] Polio (IPV/OPV) 2002 00:00:00 Completed [facility] DTAP 2002 00:00:00 Completed [facility] HIB 4 Dose Schedule 2002 00:00:00 Completed [facility] Hep B, Adol or Pedi Dosage 2002 00:00:00 Completed [facility] Polio (IPV/OPV) 2002 00:00:00 Completed [facility] DTAP 2002 00:00:00 Completed [facility] HIB 4 Dose Schedule 2002 00:00:00 Completed [facility] Hep B, Adol or Pedi Dosage 2002 00:00:00 Completed [facility] Polio (IPV/OPV) 2002 00:00:00 Completed [facility] DTAP 2002 00:00:00 Completed [facility] HIB 4 Dose Schedule 2002 00:00:00 Completed [facility] Hep B, Adol or Pedi Dosage 2002 00:00:00 Completed [facility] Polio (IPV/OPV) 2002 00:00:00 Completed [facility] DTAP 2002 00:00:00 Completed [facility] HIB 4 Dose Schedule 2002 00:00:00 Completed [facility] Hep B, Adol or Pedi Dosage 2002 00:00:00 Completed [facility] Polio (IPV/OPV) 2002 00:00:00 Completed [facility] DTAP 2002 00:00:00 Completed [facility] HIB 4 Dose Schedule 2002 00:00:00 Completed [facility] Hep B, Adol or Pedi Dosage 2002 00:00:00 Completed [facility] Polio (IPV/OPV) 2002 00:00:00 Completed [facility] DTAP 2002 00:00:00 Completed [facility] HIB 4 Dose Schedule 2002 00:00:00 Completed [facility] Hep B, Adol or Pedi Dosage 2002 00:00:00 Completed [facility] Polio (IPV/OPV) 2002 00:00:00 Completed [facility] DTAP 2002 00:00:00 Completed [facility] HIB 4 Dose Schedule 2002 00:00:00 Completed [facility] Hep B, Adol or Pedi Dosage 2002 00:00:00 Completed [facility] Polio (IPV/OPV) 2002 00:00:00 Completed [facility] DTAP 2002 00:00:00 Completed [facility] HIB 4 Dose Schedule 2002 00:00:00 Completed [facility] Hep B, Adol or Pedi Dosage 2002 00:00:00 Completed [facility] Polio (IPV/OPV) 2002 00:00:00 Completed [facility] DTAP 2002 00:00:00 Completed [facility] HIB 4 Dose Schedule 2002 00:00:00 Completed [facility] Hep B, Adol or Pedi Dosage 2002 00:00:00 Completed [facility] Polio (IPV/OPV) 2002 00:00:00 Completed [facility] DTAP 2002 00:00:00 Completed [facility] HIB 4 Dose Schedule 2002 00:00:00 Completed [facility] Hep B, Adol or Pedi Dosage 2002 00:00:00 Completed [facility] Polio (IPV/OPV) 2002 00:00:00 Completed [facility] DTAP 2002 00:00:00 Completed [facility] HIB 4 Dose Schedule 2002 00:00:00 Completed [facility] Hep B, Adol or Pedi Dosage 2002 00:00:00 Completed [facility] Polio (IPV/OPV) 2002 00:00:00 Completed [facility] DTAP 2002 00:00:00 Completed [facility] HIB 4 Dose Schedule 2002 00:00:00 Completed [facility] Hep B, Adol or Pedi Dosage 2002 00:00:00 Completed [facility] Polio (IPV/OPV) 2002 00:00:00 Completed [facility] DTAP 2002 00:00:00 Completed [facility] HIB 4 Dose Schedule 2002 00:00:00 Completed [facility] Hep B, Adol or Pedi Dosage 2002 00:00:00 Completed [facility] Polio (IPV/OPV) 2002 00:00:00 Completed [facility] DTAP 2002 00:00:00 Completed [facility] HIB 4 Dose Schedule 2002 00:00:00 Completed [facility] Hep B, Adol or Pedi Dosage 2002 00:00:00 Completed [facility] Polio (IPV/OPV) 2002 00:00:00 Completed [facility] DTAP 2002 00:00:00 Completed [facility] HIB 4 Dose Schedule 2002 00:00:00 Completed [facility] Hep B, Adol or Pedi Dosage 2002 00:00:00 Completed [facility] Polio (IPV/OPV) 2002 00:00:00 Completed [facility] DTAP 2002 00:00:00 Completed [facility] HIB 4 Dose Schedule 2002 00:00:00 Completed [facility] Hep B, Adol or Pedi Dosage 2002 00:00:00 Completed [facility] Polio (IPV/OPV) 2002 00:00:00 Completed [facility] DTAP 2002 00:00:00 Completed [facility] HIB 4 Dose Schedule 2002 00:00:00 Completed [facility] Hep B, Adol or Pedi Dosage 2002 00:00:00 Completed [facility] Polio (IPV/OPV) 2002 00:00:00 Completed [facility] DTAP 2002 00:00:00 Completed [facility] HIB 4 Dose Schedule 2002 00:00:00 Completed [facility] Hep B, Adol or Pedi Dosage 2002 00:00:00 Completed [facility] Polio (IPV/OPV) 2002 00:00:00 Completed [facility] DTAP 2002 00:00:00 Completed [facility] HIB 4 Dose Schedule 2002 00:00:00 Completed [facility] Hep B, Adol or Pedi Dosage 2002 00:00:00 Completed [facility] Polio (IPV/OPV) 2002 00:00:00 Completed [facility] DTAP 2002 00:00:00 Completed [facility] HIB 4 Dose Schedule 2002 00:00:00 Completed [facility] Hep B, Adol or Pedi Dosage 2002 00:00:00 Completed [facility] Polio (IPV/OPV) 2002 00:00:00 Completed [facility] DTAP 2002 00:00:00 Completed [facility] HIB 4 Dose Schedule 2002 00:00:00 Completed [facility] Hep B, Adol or Pedi Dosage 2002 00:00:00 Completed [facility] Polio (IPV/OPV) 2002 00:00:00 Completed [facility] DTAP 2002 00:00:00 Completed [facility] HIB 4 Dose Schedule 2002 00:00:00 Completed [facility] Hep B, Adol or Pedi Dosage 2002 00:00:00 Completed [facility] Polio (IPV/OPV) 2002 00:00:00 Completed [facility] DTAP 2002 00:00:00 Completed [facility] HIB 4 Dose Schedule 2002 00:00:00 Completed [facility] Hep B, Adol or Pedi Dosage 2002 00:00:00 Completed [facility] Polio (IPV/OPV) 2002 00:00:00 Completed [facility] DTAP 2002 00:00:00 Completed [facility] HIB 4 Dose Schedule 2002 00:00:00 Completed [facility] Hep B, Adol or Pedi Dosage 2002 00:00:00 Completed [facility] Polio (IPV/OPV) 2002 00:00:00 Completed [facility] DTAP 2002 00:00:00 Completed [facility] HIB 4 Dose Schedule 2002 00:00:00 Completed [facility] Hep B, Adol or Pedi Dosage 2002 00:00:00 Completed [facility] Polio (IPV/OPV) 2002 00:00:00 Completed [facility] DTAP 2002 00:00:00 Completed [facility] HIB 4 Dose Schedule 2002 00:00:00 Completed [facility] Hep B, Adol or Pedi Dosage 2002 00:00:00 Completed [facility] Polio (IPV/OPV) 2002 00:00:00 Completed [facility] DTAP 2002 00:00:00 Completed [facility] HIB 4 Dose Schedule 2002 00:00:00 Completed [facility] Hep B, Adol or Pedi Dosage 2002 00:00:00 Completed [facility] Polio (IPV/OPV) 2002 00:00:00 Completed [facility] DTAP 2002 00:00:00 Completed [facility] HIB 4 Dose Schedule 2002 00:00:00 Completed [facility] Hep B, Adol or Pedi Dosage 2002 00:00:00 Completed [facility] Polio (IPV/OPV) 2002 00:00:00 Completed [facility] DTAP 2002 00:00:00 Completed [facility] HIB 4 Dose Schedule 2002 00:00:00 Completed [facility] Hep B, Adol or Pedi Dosage 2002 00:00:00 Completed [facility] Polio (IPV/OPV) 2002 00:00:00 Completed [facility] DTAP 2002 00:00:00 Completed [facility] HIB 4 Dose Schedule 2002 00:00:00 Completed [facility] Hep B, Adol or Pedi Dosage 2002 00:00:00 Completed [facility] Polio (IPV/OPV) 2002 00:00:00 Completed [facility] DTAP 2002 00:00:00 Completed [facility] HIB 4 Dose Schedule 2002 00:00:00 Completed [facility] Hep B, Adol or Pedi Dosage 2002 00:00:00 Completed [facility] Polio (IPV/OPV) 2002 00:00:00 Completed [facility] DTAP 2002 00:00:00 Completed [facility] HIB 4 Dose Schedule 2002 00:00:00 Completed [facility] Hep B, Adol or Pedi Dosage 2002 00:00:00 Completed [facility] Polio (IPV/OPV) 2002 00:00:00 Completed [facility] DTAP 2002 00:00:00 Completed [facility] HIB 4 Dose Schedule 2002 00:00:00 Completed [facility] Hep B, Adol or Pedi Dosage 2002 00:00:00 Completed [facility] Polio (IPV/OPV) 2002 00:00:00 Completed [facility] DTAP 2002 00:00:00 Completed [facility] HIB 4 Dose Schedule 2002 00:00:00 Completed [facility] Hep B, Adol or Pedi Dosage 2002 00:00:00 Completed [facility] Polio (IPV/OPV) 2002 00:00:00 Completed [facility] Hep B, Adol or Pedi Dosage 2002 00:00:00 Completed [facility] Hep B, Adol or Pedi Dosage 2002 00:00:00 Completed [facility] Hep B, Adol or Pedi Dosage 2002 00:00:00 Completed [facility] Hep B, Adol or Pedi Dosage 2002 00:00:00 Completed [facility] Hep B, Adol or Pedi Dosage 2002 00:00:00 Completed [facility] Hep B, Adol or Pedi Dosage 2002 00:00:00 Completed [facility] Hep B, Adol or Pedi Dosage 2002 00:00:00 Completed [facility] Hep B, Adol or Pedi Dosage 2002 00:00:00 Completed [facility] Hep B, Adol or Pedi Dosage 2002 00:00:00 Completed [facility] Hep B, Adol or Pedi Dosage 2002 00:00:00 Completed [facility] Hep B, Adol or Pedi Dosage 2002 00:00:00 Completed [facility] Hep B, Adol or Pedi Dosage 2002 00:00:00 Completed [facility] Hep B, Adol or Pedi Dosage 2002 00:00:00 Completed [facility] Hep B, Adol or Pedi Dosage 2002 00:00:00 Completed [facility] Hep B, Adol or Pedi Dosage 2002 00:00:00 Completed [facility] Hep B, Adol or Pedi Dosage 2002 00:00:00 Completed [facility] Hep B, Adol or Pedi Dosage 2002 00:00:00 Completed [facility] Hep B, Adol or Pedi Dosage 2002 00:00:00 Completed [facility] Hep B, Adol or Pedi Dosage 2002 00:00:00 Completed [facility] Hep B, Adol or Pedi Dosage 2002 00:00:00 Completed [facility] Hep B, Adol or Pedi Dosage 2002 00:00:00 Completed [facility] Hep B, Adol or Pedi Dosage 2002 00:00:00 Completed [facility] Hep B, Adol or Pedi Dosage 2002 00:00:00 Completed [facility] Hep B, Adol or Pedi Dosage 2002 00:00:00 Completed [facility] Hep B, Adol or Pedi Dosage 2002 00:00:00 Completed [facility] Hep B, Adol or Pedi Dosage 2002 00:00:00 Completed [facility] Hep B, Adol or Pedi Dosage 2002 00:00:00 Completed [facility] Hep B, Adol or Pedi Dosage 2002 00:00:00 Completed [facility] Hep B, Adol or Pedi Dosage 2002 00:00:00 Completed [facility] Hep B, Adol or Pedi Dosage 2002 00:00:00 Completed [facility] Hep B, Adol or Pedi Dosage 2002 00:00:00 Completed [facility] Hep B, Adol or Pedi Dosage 2002 00:00:00 Completed [facility] Hep B, Adol or Pedi Dosage 2002 00:00:00 Completed [facility] Hep B, Adol or Pedi Dosage 2002 00:00:00 Completed [facility] Hep B, Adol or Pedi Dosage 2002 00:00:00 Completed [facility] Hep B, Adol or Pedi Dosage 2002 00:00:00 Completed [facility] Hep B, Adol or Pedi Dosage 2002 00:00:00 Completed [facility] Hep B, Adol or Pedi Dosage 2002 00:00:00 Completed [facility] Hep B, Adol or Pedi Dosage 2002 00:00:00 Completed [facility] Hep B, Adol or Pedi Dosage 2002 00:00:00 Completed [facility] Hep B, Adol or Pedi Dosage 2002 00:00:00 Completed [facility] Hep B, Adol or Pedi Dosage 2002 00:00:00 Completed [facility] Hep B, Adol or Pedi Dosage 2002 00:00:00 Completed [facility] Hep B, Adol or Pedi Dosage 2002 00:00:00 Completed [facility] Hep B, Adol or Pedi Dosage 2002 00:00:00 Completed [facility] Hep B, Adol or Pedi Dosage 2002 00:00:00 Completed [facility] Hep B, Adol or Pedi Dosage 2002 00:00:00 Completed [facility] Hep B, Adol or Pedi Dosage 2002 00:00:00 Completed [facility] Hep B, Adol or Pedi Dosage 2002 00:00:00 Completed [facility] Hep B, Adol or Pedi Dosage 2002 00:00:00 Completed [facility] Hep B, Adol or Pedi Dosage 2002 00:00:00 Completed [facility] Hep B, Adol or Pedi Dosage 2002 00:00:00 Completed [facility] Hep B, Adol or Pedi Dosage 2002 00:00:00 Completed [facility] Hep B, Adol or Pedi Dosage 2002 00:00:00 Completed [facility] Hep B, Adol or Pedi Dosage 2002 00:00:00 Completed [facility] Hep B, Adol or Pedi Dosage 2002 00:00:00 Completed [facility] Hep B, Adol or Pedi Dosage 2002 00:00:00 Completed [facility] Hep B, Adol or Pedi Dosage 2002 00:00:00 Completed [facility] Hep B, Adol or Pedi Dosage 2002 00:00:00 Completed [facility] Hep B, Adol or Pedi Dosage 2002 00:00:00 Completed [facility] Hep B, Adol or Pedi Dosage 2002 00:00:00 Completed [facility] Hep B, Adol or Pedi Dosage 2002 00:00:00 Completed [facility] Hep B, Adol or Pedi Dosage 2002 00:00:00 Completed [facility] Hep B, Adol or Pedi Dosage 2002 00:00:00 Completed [facility] Hep B, Adol or Pedi Dosage 2002 00:00:00 Completed [facility] Hep B, Adol or Pedi Dosage 2002 00:00:00 Completed [facility] Hep B, Adol or Pedi Dosage 2002 00:00:00 Completed [facility] Hep B, Adol or Pedi Dosage 2002 00:00:00 Completed [facility] Hep B, Adol or Pedi Dosage 2002 00:00:00 Completed [facility] Hep B, Adol or Pedi Dosage 2002 00:00:00 Completed [facility] Hep B, Adol or Pedi Dosage 2002 00:00:00 Completed [facility] Hep B, Adol or Pedi Dosage 2002 00:00:00 Completed [facility] Hep B, Adol or Pedi Dosage 2002 00:00:00 Completed [facility] Hep B, Adol or Pedi Dosage 2002 00:00:00 Completed [facility] Hep B, Adol or Pedi Dosage 2002 00:00:00 Completed [facility] Hep B, Adol or Pedi Dosage 2002 00:00:00 Completed [facility] Hep B, Adol or Pedi Dosage 2002 00:00:00 Completed [facility] Hep B, Adol or Pedi Dosage 2002 00:00:00 Completed [facility] Hep B, Adol or Pedi Dosage 2002 00:00:00 Completed [facility] Hep B, Adol or Pedi Dosage 2002 00:00:00 Completed [facility] Hep B, Adol or Pedi Dosage 2002 00:00:00 Completed [facility] Hep B, Adol or Pedi Dosage 2002 00:00:00 Completed [facility] Hep B, Adol or Pedi Dosage 2002 00:00:00 Completed [facility] Hep B, Adol or Pedi Dosage 2002 00:00:00 Completed [facility] Hep B, Adol or Pedi Dosage 2002 00:00:00 Completed [facility] Hep B, Adol or Pedi Dosage 2002 00:00:00 Completed [facility] Hep B, Adol or Pedi Dosage 2002 00:00:00 Completed [facility] Hep B, Adol or Pedi Dosage 2002 00:00:00 Completed [facility] Hep B, Adol or Pedi Dosage 2002 00:00:00 Completed [facility] Hep B, Adol or Pedi Dosage 2002 00:00:00 Completed [facility] Hep B, Adol or Pedi Dosage 2002 00:00:00 Completed [facility] Hep B, Adol or Pedi Dosage 2002 00:00:00 Completed [facility] Hep B, Adol or Pedi Dosage 2002 00:00:00 Completed [facility] Hep B, Adol or Pedi Dosage 2002 00:00:00 Completed [facility] Hep B, Adol or Pedi Dosage 2002 00:00:00 Completed [facility] Hep B, Adol or Pedi Dosage 2002 00:00:00 Completed [facility] Hep B, Adol or Pedi Dosage 2002 00:00:00 Completed [facility] Hep B, Adol or Pedi Dosage 2002 00:00:00 Completed [facility] Hep B, Adol or Pedi Dosage 2002 00:00:00 Completed [facility] Hep B, Adol or Pedi Dosage 2002 00:00:00 Completed [facility] Hep B, Adol or Pedi Dosage 2002 00:00:00 Completed [facility] Hep B, Adol or Pedi Dosage 2002 00:00:00 Completed [facility] Hep B, Adol or Pedi Dosage 2002 00:00:00 Completed [facility] Hep B, Adol or Pedi Dosage 2002 00:00:00 Completed [facility] Hep B, Adol or Pedi Dosage 2002 00:00:00 Completed [facility] HEPATITIS A Unknown Completed [facility] Influenza Virus Vaccine Unknown Completed [facility] HEPATITIS A Unknown Completed [facility] DTAP Unknown Completed [facility] Proquad (MMR/VARICELLA) Unknown Completed [facility] Polio (IPV/OPV) Unknown Completed [facility] Influenza Virus Vaccine Unknown Completed [facility] Influenza Virus Vaccine Unknown Completed [facility] Influenza Virus Vaccine Unknown Completed [facility] Influenza Virus Vaccine Unknown Completed [facility] Influenza Virus Vaccine Unknown Completed [facility] Influenza Virus Vaccine Unknown Completed [facility] Influenza Virus Vaccine (3+ yrs) Unknown Completed [facility] Meningococcal Polysaccharide (groups A, C, Y and W-135) conjugate vaccine (MCV4P) Unknown Completed [facility] TDAP Unknown Completed [facility] Influenza Virus Vaccine (3+ yrs) Unknown Completed [facility] Influenza Virus Vaccine Quad IM 3+ YRS Unknown Completed [facility] HPV9 Unknown Completed [facility] HPV Unknown Completed [facility] HPV9 Unknown Completed [facility] Influenza Virus Vaccine Quad IM 3+ YRS Unknown Completed [facility] Meningococcal Polysaccharide (groups A, C, Y and W-135) conjugate vaccine (MCV4P) Unknown Completed [facility] Influenza Virus Vaccine Quad .5 mL IM 6+ MO (FLUZONE/FLULAVAL/FL UARIX) Unknown Completed [facility] Meningococcal B, OMV Unknown Completed [facility] Hep B, Adol or Pedi Dosage Unknown Completed [facility] Meningococcal B, OMV Unknown Completed [facility] Influenza Virus Vaccine Quad .5 mL IM 6+ MO (FLUZONE/FLULAVAL/FL UARIX) Unknown Completed [facility] SARS-COV-2 COVID-19 PFIZER VACCINE Unknown Completed [facility] SARS-COV-2 COVID-19 PFIZER VACCINE Unknown Completed [facility] SARS-COV-2 COVID-19 PFIZER VACCINE Unknown Completed [facility] SARS-COV-2 COVID-19 MIKE-SUCROSE VACCINE 12 YRS+, BIVALENT 0.3ML, IM, (PFIZER ARITA TOP) Unknown Completed [facility] DTAP Unknown Completed [facility] DTAP Unknown Completed [facility] DTAP Unknown Completed [facility] HIB 4 Dose Schedule Unknown Completed [facility] HIB 4 Dose Schedule Unknown Completed [facility] HIB 4 Dose Schedule Unknown Completed [facility] Hep B, Adol or Pedi Dosage Unknown Completed [facility] Hep B, Adol or Pedi Dosage Unknown Completed [facility] Pneumococcal 7 Conjugate, PCV7 (Prevnar7) Unknown Completed [facility] Pneumococcal 7 Conjugate, PCV7 (Prevnar7) Unknown Completed [facility] Polio (IPV/OPV) Unknown Completed [facility] Polio (IPV/OPV) Unknown Completed [facility] HIB 4 Dose Schedule Unknown Completed [facility] MMR Unknown Completed [facility] Pneumococcal 7 Conjugate, PCV7 (Prevnar7) Unknown Completed [facility] Polio (IPV/OPV) Unknown Completed [facility] Varicella (varivax)(chicken pox) Unknown Completed [facility] HEPATITIS A Unknown Completed [facility] Influenza Virus Vaccine Unknown Completed [facility] HEPATITIS A Unknown Completed [facility] DTAP Unknown Completed [facility] Proquad (MMR/VARICELLA) Unknown Completed [facility] Polio (IPV/OPV) Unknown Completed [facility] Influenza Virus Vaccine Unknown Completed [facility] Influenza Virus Vaccine Unknown Completed [facility] Influenza Virus Vaccine Unknown Completed [facility] Influenza Virus Vaccine Unknown Completed [facility] Influenza Virus Vaccine Unknown Completed [facility] Influenza Virus Vaccine Unknown Completed [facility] Influenza Virus Vaccine (3+ yrs) Unknown Completed [facility] Meningococcal Polysaccharide (groups A, C, Y and W-135) conjugate vaccine (MCV4P) Unknown Completed [facility] TDAP Unknown Completed [facility] Influenza Virus Vaccine (3+ yrs) Unknown Completed [facility] Influenza Virus Vaccine Quad IM 3+ YRS Unknown Completed [facility] HPV9 Unknown Completed [facility] HPV Unknown Completed [facility] HPV9 Unknown Completed [facility] Influenza Virus Vaccine Quad IM 3+ YRS Unknown Completed [facility] Meningococcal Polysaccharide (groups A, C, Y and W-135) conjugate vaccine (MCV4P) Unknown Completed [facility] Influenza Virus Vaccine Quad .5 mL IM 6+ MO (FLUZONE/FLULAVAL/FL UARIX) Unknown Completed [facility] Meningococcal B, OMV Unknown Completed [facility] Hep B, Adol or Pedi Dosage Unknown Completed [facility] Meningococcal B, OMV Unknown Completed [facility] Influenza Virus Vaccine Quad .5 mL IM 6+ MO (FLUZONE/FLULAVAL/FL UARIX) Unknown Completed [facility] SARS-COV-2 COVID-19 PFIZER VACCINE Unknown Completed [facility] SARS-COV-2 COVID-19 PFIZER VACCINE Unknown Completed [facility] SARS-COV-2 COVID-19 PFIZER VACCINE Unknown Completed [facility] SARS-COV-2 COVID-19 MIKE-SUCROSE VACCINE 12 YRS+, BIVALENT 0.3ML, IM, (PFIZER ARITA TOP) Unknown Completed [facility] DTAP Unknown Completed [facility] DTAP Unknown Completed [facility] DTAP Unknown Completed [facility] HIB 4 Dose Schedule Unknown Completed [facility] HIB 4 Dose Schedule Unknown Completed [facility] HIB 4 Dose Schedule Unknown Completed [facility] Hep B, Adol or Pedi Dosage Unknown Completed [facility] Hep B, Adol or Pedi Dosage Unknown Completed [facility] Pneumococcal 7 Conjugate, PCV7 (Prevnar7) Unknown Completed [facility] Pneumococcal 7 Conjugate, PCV7 (Prevnar7) Unknown Completed [facility] Polio (IPV/OPV) Unknown Completed [facility] Polio (IPV/OPV) Unknown Completed [facility] HIB 4 Dose Schedule Unknown Completed [facility] MMR Unknown Completed [facility] Pneumococcal 7 Conjugate, PCV7 (Prevnar7) Unknown Completed [facility] Polio (IPV/OPV) Unknown Completed [facility] Varicella (varivax)(chicken pox) Unknown Completed [facility] HEPATITIS A Unknown Completed [facility] Influenza Virus Vaccine Unknown Completed [facility] HEPATITIS A Unknown Completed [facility] DTAP Unknown Completed [facility] Proquad (MMR/VARICELLA) Unknown Completed [facility] Polio (IPV/OPV) Unknown Completed [facility] Influenza Virus Vaccine Unknown Completed [facility] Influenza Virus Vaccine Unknown Completed [facility] Influenza Virus Vaccine Unknown Completed [facility] Influenza Virus Vaccine Unknown Completed [facility] Influenza Virus Vaccine Unknown Completed [facility] Influenza Virus Vaccine Unknown Completed [facility] Influenza Virus Vaccine (3+ yrs) Unknown Completed [facility] Meningococcal Polysaccharide (groups A, C, Y and W-135) conjugate vaccine (MCV4P) Unknown Completed [facility] TDAP Unknown Completed [facility] Influenza Virus Vaccine (3+ yrs) Unknown Completed [facility] Influenza Virus Vaccine Quad IM 3+ YRS Unknown Completed [facility] HPV9 Unknown Completed [facility] HPV Unknown Completed [facility] HPV9 Unknown Completed [facility] Influenza Virus Vaccine Quad IM 3+ YRS Unknown Completed [facility] Meningococcal Polysaccharide (groups A, C, Y and W-135) conjugate vaccine (MCV4P) Unknown Completed [facility] Influenza Virus Vaccine Quad .5 mL IM 6+ MO (FLUZONE/FLULAVAL/FL UARIX) Unknown Completed [facility] Meningococcal B, OMV Unknown Completed [facility] Hep B, Adol or Pedi Dosage Unknown Completed [facility] Meningococcal B, OMV Unknown Completed [facility] Influenza Virus Vaccine Quad .5 mL IM 6+ MO (FLUZONE/FLULAVAL/FL UARIX) Unknown Completed [facility] SARS-COV-2 COVID-19 PFIZER VACCINE Unknown Completed [facility] SARS-COV-2 COVID-19 PFIZER VACCINE Unknown Completed [facility] SARS-COV-2 COVID-19 PFIZER VACCINE Unknown Completed [facility] SARS-COV-2 COVID-19 MIKE-SUCROSE VACCINE 12 YRS+, BIVALENT 0.3ML, IM, (PFIZER ARITA TOP) Unknown Completed [facility] HEPATITIS A Unknown Completed [facility] Influenza Virus Vaccine Unknown Completed [facility] HEPATITIS A Unknown Completed [facility] DTAP Unknown Completed [facility] Proquad (MMR/VARICELLA) Unknown Completed [facility] Polio (IPV/OPV) Unknown Completed [facility] Influenza Virus Vaccine Unknown Completed [facility] Influenza Virus Vaccine Unknown Completed [facility] Influenza Virus Vaccine Unknown Completed [facility] Influenza Virus Vaccine Unknown Completed [facility] Influenza Virus Vaccine Unknown Completed [facility] Influenza Virus Vaccine Unknown Completed [facility] Influenza Virus Vaccine (3+ yrs) Unknown Completed [facility] Meningococcal Polysaccharide (groups A, C, Y and W-135) conjugate vaccine (MCV4P) Unknown Completed [facility] TDAP Unknown Completed [facility] Influenza Virus Vaccine (3+ yrs) Unknown Completed [facility] Influenza Virus Vaccine Quad IM 3+ YRS Unknown Completed [facility] HPV9 Unknown Completed [facility] HPV Unknown Completed [facility] HPV9 Unknown Completed [facility] Influenza Virus Vaccine Quad IM 3+ YRS Unknown Completed [facility] Meningococcal Polysaccharide (groups A, C, Y and W-135) conjugate vaccine (MCV4P) Unknown Completed [facility] Influenza Virus Vaccine Quad .5 mL IM 6+ MO (FLUZONE/FLULAVAL/FL UARIX) Unknown Completed [facility] Meningococcal B, OMV Unknown Completed [facility] Hep B, Adol or Pedi Dosage Unknown Completed [facility] Meningococcal B, OMV Unknown Completed [facility] Influenza Virus Vaccine Quad .5 mL IM 6+ MO (FLUZONE/FLULAVAL/FL UARIX) Unknown Completed [facility] SARS-COV-2 COVID-19 PFIZER VACCINE Unknown Completed [facility] SARS-COV-2 COVID-19 PFIZER VACCINE Unknown Completed [facility] SARS-COV-2 COVID-19 PFIZER VACCINE Unknown Completed [facility] SARS-COV-2 COVID-19 MIKE-SUCROSE VACCINE 12 YRS+, BIVALENT 0.3ML, IM, (PFIZER ARITA TOP) Unknown Completed [facility] DTAP Unknown Completed [facility] DTAP Unknown Completed [facility] DTAP Unknown Completed [facility] HIB 4 Dose Schedule Unknown Completed [facility] HIB 4 Dose Schedule Unknown Completed [facility] HIB 4 Dose Schedule Unknown Completed [facility] Hep B, Adol or Pedi Dosage Unknown Completed [facility] Hep B, Adol or Pedi Dosage Unknown Completed [facility] Pneumococcal 7 Conjugate, PCV7 (Prevnar7) Unknown Completed [facility] Pneumococcal 7 Conjugate, PCV7 (Prevnar7) Unknown Completed [facility] Polio (IPV/OPV) Unknown Completed [facility] Polio (IPV/OPV) Unknown Completed [facility] HIB 4 Dose Schedule Unknown Completed [facility] MMR Unknown Completed [facility] Pneumococcal 7 Conjugate, PCV7 (Prevnar7) Unknown Completed [facility] Polio (IPV/OPV) Unknown Completed [facility] Varicella (varivax)(chicken pox) Unknown Completed [facility] HEPATITIS A Unknown Completed [facility] Influenza Virus Vaccine Unknown Completed [facility] HEPATITIS A Unknown Completed [facility] DTAP Unknown Completed [facility] Proquad (MMR/VARICELLA) Unknown Completed [facility] Polio (IPV/OPV) Unknown Completed [facility] Influenza Virus Vaccine Unknown Completed [facility] Influenza Virus Vaccine Unknown Completed [facility] Influenza Virus Vaccine Unknown Completed [facility] Influenza Virus Vaccine Unknown Completed [facility] Influenza Virus Vaccine Unknown Completed [facility] Influenza Virus Vaccine Unknown Completed [facility] Influenza Virus Vaccine (3+ yrs) Unknown Completed [facility] Meningococcal Polysaccharide (groups A, C, Y and W-135) conjugate vaccine (MCV4P) Unknown Completed [facility] TDAP Unknown Completed [facility] Influenza Virus Vaccine (3+ yrs) Unknown Completed [facility] Influenza Virus Vaccine Quad IM 3+ YRS Unknown Completed [facility] HPV9 Unknown Completed [facility] HPV Unknown Completed [facility] HPV9 Unknown Completed [facility] Influenza Virus Vaccine Quad IM 3+ YRS Unknown Completed [facility] Meningococcal Polysaccharide (groups A, C, Y and W-135) conjugate vaccine (MCV4P) Unknown Completed [facility] Influenza Virus Vaccine Quad .5 mL IM 6+ MO (FLUZONE/FLULAVAL/FL UARIX) Unknown Completed [facility] Meningococcal B, OMV Unknown Completed [facility] Hep B, Adol or Pedi Dosage Unknown Completed [facility] Meningococcal B, OMV Unknown Completed [facility] Influenza Virus Vaccine Quad .5 mL IM 6+ MO (FLUZONE/FLULAVAL/FL UARIX) Unknown Completed [facility] SARS-COV-2 COVID-19 PFIZER VACCINE Unknown Completed [facility] SARS-COV-2 COVID-19 PFIZER VACCINE Unknown Completed [facility] SARS-COV-2 COVID-19 PFIZER VACCINE Unknown Completed [facility] SARS-COV-2 COVID-19 MIKE-SUCROSE VACCINE 12 YRS+, BIVALENT 0.3ML, IM, (PFIZER ARITA TOP) Unknown Completed [facility] HEPATITIS A Unknown Completed [facility] Influenza Virus Vaccine Unknown Completed [facility] HEPATITIS A Unknown Completed [facility] DTAP Unknown Completed [facility] Proquad (MMR/VARICELLA) Unknown Completed [facility] Polio (IPV/OPV) Unknown Completed [facility] Influenza Virus Vaccine Unknown Completed [facility] Influenza Virus Vaccine Unknown Completed [facility] Influenza Virus Vaccine Unknown Completed [facility] Influenza Virus Vaccine Unknown Completed [facility] Influenza Virus Vaccine Unknown Completed [facility] Influenza Virus Vaccine Unknown Completed [facility] Influenza Virus Vaccine (3+ yrs) Unknown Completed [facility] Meningococcal Polysaccharide (groups A, C, Y and W-135) conjugate vaccine (MCV4P) Unknown Completed [facility] TDAP Unknown Completed [facility] Influenza Virus Vaccine (3+ yrs) Unknown Completed [facility] Influenza Virus Vaccine Quad IM 3+ YRS Unknown Completed [facility] HPV9 Unknown Completed [facility] HPV Unknown Completed [facility] HPV9 Unknown Completed [facility] Influenza Virus Vaccine Quad IM 3+ YRS Unknown Completed [facility] Meningococcal Polysaccharide (groups A, C, Y and W-135) conjugate vaccine (MCV4P) Unknown Completed [facility] Influenza Virus Vaccine Quad .5 mL IM 6+ MO (FLUZONE/FLULAVAL/FL UARIX) Unknown Completed [facility] Meningococcal B, OMV Unknown Completed [facility] Hep B, Adol or Pedi Dosage Unknown Completed [facility] Meningococcal B, OMV Unknown Completed [facility] Influenza Virus Vaccine Quad .5 mL IM 6+ MO (FLUZONE/FLULAVAL/FL UARIX) Unknown Completed [facility] SARS-COV-2 COVID-19 PFIZER VACCINE Unknown Completed [facility] SARS-COV-2 COVID-19 PFIZER VACCINE Unknown Completed [facility] SARS-COV-2 COVID-19 PFIZER VACCINE Unknown Completed [facility] SARS-COV-2 COVID-19 MIKE-SUCROSE VACCINE 12 YRS+, BIVALENT 0.3ML, IM, (PFIZER ARITA TOP) Unknown Completed [facility] HEPATITIS A Unknown Completed [facility] Influenza Virus Vaccine Unknown Completed [facility] HEPATITIS A Unknown Completed [facility] DTAP Unknown Completed [facility] Proquad (MMR/VARICELLA) Unknown Completed [facility] Polio (IPV/OPV) Unknown Completed [facility] Influenza Virus Vaccine Unknown Completed [facility] Influenza Virus Vaccine Unknown Completed [facility] Influenza Virus Vaccine Unknown Completed [facility] Influenza Virus Vaccine Unknown Completed [facility] Influenza Virus Vaccine Unknown Completed [facility] Influenza Virus Vaccine Unknown Completed [facility] Influenza Virus Vaccine (3+ yrs) Unknown Completed [facility] Meningococcal Polysaccharide (groups A, C, Y and W-135) conjugate vaccine (MCV4P) Unknown Completed [facility] TDAP Unknown Completed [facility] Influenza Virus Vaccine (3+ yrs) Unknown Completed [facility] Influenza Virus Vaccine Quad IM 3+ YRS Unknown Completed [facility] HPV9 Unknown Completed [facility] HPV Unknown Completed [facility] HPV9 Unknown Completed [facility] Influenza Virus Vaccine Quad IM 3+ YRS Unknown Completed [facility] Meningococcal Polysaccharide (groups A, C, Y and W-135) conjugate vaccine (MCV4P) Unknown Completed [facility] Influenza Virus Vaccine Quad .5 mL IM 6+ MO (FLUZONE/FLULAVAL/FL UARIX) Unknown Completed [facility] Meningococcal B, OMV Unknown Completed [facility] Hep B, Adol or Pedi Dosage Unknown Completed [facility] Meningococcal B, OMV Unknown Completed [facility] Influenza Virus Vaccine Quad .5 mL IM 6+ MO (FLUZONE/FLULAVAL/FL UARIX) Unknown Completed [facility] SARS-COV-2 COVID-19 PFIZER VACCINE Unknown Completed [facility] SARS-COV-2 COVID-19 PFIZER VACCINE Unknown Completed [facility] SARS-COV-2 COVID-19 PFIZER VACCINE Unknown Completed [facility] SARS-COV-2 COVID-19 MIKE-SUCROSE VACCINE 12 YRS+, BIVALENT 0.3ML, IM, (PFIZER ARITA TOP) Unknown Completed [facility] DTAP Unknown Completed [facility] DTAP Unknown Completed [facility] DTAP Unknown Completed [facility] HIB 4 Dose Schedule Unknown Completed [facility] HIB 4 Dose Schedule Unknown Completed [facility] HIB 4 Dose Schedule Unknown Completed [facility] Hep B, Adol or Pedi Dosage Unknown Completed [facility] Hep B, Adol or Pedi Dosage Unknown Completed [facility] Pneumococcal 7 Conjugate, PCV7 (Prevnar7) Unknown Completed [facility] Pneumococcal 7 Conjugate, PCV7 (Prevnar7) Unknown Completed [facility] Polio (IPV/OPV) Unknown Completed [facility] Polio (IPV/OPV) Unknown Completed [facility] HIB 4 Dose Schedule Unknown Completed [facility] MMR Unknown Completed [facility] Pneumococcal 7 Conjugate, PCV7 (Prevnar7) Unknown Completed [facility] Polio (IPV/OPV) Unknown Completed [facility] Varicella (varivax)(chicken pox) Unknown Completed [facility] HEPATITIS A Unknown Completed [facility] Influenza Virus Vaccine Unknown Completed [facility] HEPATITIS A Unknown Completed [facility] DTAP Unknown Completed [facility] Proquad (MMR/VARICELLA) Unknown Completed [facility] Polio (IPV/OPV) Unknown Completed [facility] Influenza Virus Vaccine Unknown Completed [facility] Influenza Virus Vaccine Unknown Completed [facility] Influenza Virus Vaccine Unknown Completed [facility] Influenza Virus Vaccine Unknown Completed [facility] Influenza Virus Vaccine Unknown Completed [facility] Influenza Virus Vaccine Unknown Completed [facility] Influenza Virus Vaccine (3+ yrs) Unknown Completed [facility] Meningococcal Polysaccharide (groups A, C, Y and W-135) conjugate vaccine (MCV4P) Unknown Completed [facility] TDAP Unknown Completed [facility] Influenza Virus Vaccine (3+ yrs) Unknown Completed [facility] Influenza Virus Vaccine Quad IM 3+ YRS Unknown Completed [facility] HPV9 Unknown Completed [facility] HPV Unknown Completed [facility] HPV9 Unknown Completed [facility] Influenza Virus Vaccine Quad IM 3+ YRS Unknown Completed [facility] Meningococcal Polysaccharide (groups A, C, Y and W-135) conjugate vaccine (MCV4P) Unknown Completed [facility] Influenza Virus Vaccine Quad .5 mL IM 6+ MO (FLUZONE/FLULAVAL/FL UARIX) Unknown Completed [facility] Meningococcal B, OMV Unknown Completed [facility] Hep B, Adol or Pedi Dosage Unknown Completed [facility] Meningococcal B, OMV Unknown Completed [facility] Influenza Virus Vaccine Quad .5 mL IM 6+ MO (FLUZONE/FLULAVAL/FL UARIX) Unknown Completed [facility] SARS-COV-2 COVID-19 PFIZER VACCINE Unknown Completed [facility] SARS-COV-2 COVID-19 PFIZER VACCINE Unknown Completed [facility] SARS-COV-2 COVID-19 PFIZER VACCINE Unknown Completed [facility] SARS-COV-2 COVID-19 MIKE-SUCROSE VACCINE 12 YRS+, BIVALENT 0.3ML, IM, (PFIZER ARITA TOP) Unknown Completed [facility] DTAP Unknown Completed [facility] DTAP Unknown Completed [facility] DTAP Unknown Completed [facility] HIB 4 Dose Schedule Unknown Completed [facility] HIB 4 Dose Schedule Unknown Completed [facility] HIB 4 Dose Schedule Unknown Completed [facility] Hep B, Adol or Pedi Dosage Unknown Completed [facility] Hep B, Adol or Pedi Dosage Unknown Completed [facility] Pneumococcal 7 Conjugate, PCV7 (Prevnar7) Unknown Completed [facility] Pneumococcal 7 Conjugate, PCV7 (Prevnar7) Unknown Completed [facility] Polio (IPV/OPV) Unknown Completed [facility] Polio (IPV/OPV) Unknown Completed [facility] HIB 4 Dose Schedule Unknown Completed [facility] MMR Unknown Completed [facility] Pneumococcal 7 Conjugate, PCV7 (Prevnar7) Unknown Completed [facility] Polio (IPV/OPV) Unknown Completed [facility] Varicella (varivax)(chicken pox) Unknown Completed [facility] HEPATITIS A Unknown Completed [facility] Influenza Virus Vaccine Unknown Completed [facility] HEPATITIS A Unknown Completed [facility] DTAP Unknown Completed [facility] Proquad (MMR/VARICELLA) Unknown Completed [facility] Polio (IPV/OPV) Unknown Completed [facility] Influenza Virus Vaccine Unknown Completed [facility] Influenza Virus Vaccine Unknown Completed [facility] Influenza Virus Vaccine Unknown Completed [facility] Influenza Virus Vaccine Unknown Completed [facility] Influenza Virus Vaccine Unknown Completed [facility] Influenza Virus Vaccine Unknown Completed [facility] Influenza Virus Vaccine (3+ yrs) Unknown Completed [facility] Meningococcal Polysaccharide (groups A, C, Y and W-135) conjugate vaccine (MCV4P) Unknown Completed [facility] TDAP Unknown Completed [facility] Influenza Virus Vaccine (3+ yrs) Unknown Completed [facility] Influenza Virus Vaccine Quad IM 3+ YRS Unknown Completed [facility] HPV9 Unknown Completed [facility] HPV Unknown Completed [facility] HPV9 Unknown Completed [facility] Influenza Virus Vaccine Quad IM 3+ YRS Unknown Completed [facility] Meningococcal Polysaccharide (groups A, C, Y and W-135) conjugate vaccine (MCV4P) Unknown Completed [facility] Influenza Virus Vaccine Quad .5 mL IM 6+ MO (FLUZONE/FLULAVAL/FL UARIX) Unknown Completed [facility] Meningococcal B, OMV Unknown Completed [facility] Hep B, Adol or Pedi Dosage Unknown Completed [facility] Meningococcal B, OMV Unknown Completed [facility] Influenza Virus Vaccine Quad .5 mL IM 6+ MO (FLUZONE/FLULAVAL/FL UARIX) Unknown Completed [facility] SARS-COV-2 COVID-19 PFIZER VACCINE Unknown Completed [facility] SARS-COV-2 COVID-19 PFIZER VACCINE Unknown Completed [facility] SARS-COV-2 COVID-19 PFIZER VACCINE Unknown Completed [facility] SARS-COV-2 COVID-19 MIKE-SUCROSE VACCINE 12 YRS+, BIVALENT 0.3ML, IM, (PFIZER ARITA TOP) Unknown Completed [facility] DTAP Unknown Completed [facility] DTAP Unknown Completed [facility] DTAP Unknown Completed [facility] HIB 4 Dose Schedule Unknown Completed [facility] HIB 4 Dose Schedule Unknown Completed [facility] HIB 4 Dose Schedule Unknown Completed [facility] Hep B, Adol or Pedi Dosage Unknown Completed [facility] Hep B, Adol or Pedi Dosage Unknown Completed [facility] Pneumococcal 7 Conjugate, PCV7 (Prevnar7) Unknown Completed [facility] Pneumococcal 7 Conjugate, PCV7 (Prevnar7) Unknown Completed [facility] Polio (IPV/OPV) Unknown Completed [facility] Polio (IPV/OPV) Unknown Completed [facility] HIB 4 Dose Schedule Unknown Completed [facility] MMR Unknown Completed [facility] Pneumococcal 7 Conjugate, PCV7 (Prevnar7) Unknown Completed [facility] Polio (IPV/OPV) Unknown Completed [facility] Varicella (varivax)(chicken pox) Unknown Completed [facility] HEPATITIS A Unknown Completed [facility] Influenza Virus Vaccine Unknown Completed [facility] HEPATITIS A Unknown Completed [facility] DTAP Unknown Completed [facility] Proquad (MMR/VARICELLA) Unknown Completed [facility] Polio (IPV/OPV) Unknown Completed [facility] Influenza Virus Vaccine Unknown Completed [facility] Influenza Virus Vaccine Unknown Completed [facility] Influenza Virus Vaccine Unknown Completed [facility] Influenza Virus Vaccine Unknown Completed [facility] Influenza Virus Vaccine Unknown Completed [facility] Influenza Virus Vaccine Unknown Completed [facility] Influenza Virus Vaccine (3+ yrs) Unknown Completed [facility] Meningococcal Polysaccharide (groups A, C, Y and W-135) conjugate vaccine (MCV4P) Unknown Completed [facility] TDAP Unknown Completed [facility] Influenza Virus Vaccine (3+ yrs) Unknown Completed [facility] Influenza Virus Vaccine Quad IM 3+ YRS Unknown Completed [facility] HPV9 Unknown Completed [facility] HPV Unknown Completed [facility] HPV9 Unknown Completed [facility] Influenza Virus Vaccine Quad IM 3+ YRS Unknown Completed [facility] Meningococcal Polysaccharide (groups A, C, Y and W-135) conjugate vaccine (MCV4P) Unknown Completed [facility] Influenza Virus Vaccine Quad .5 mL IM 6+ MO (FLUZONE/FLULAVAL/FL UARIX) Unknown Completed [facility] Meningococcal B, OMV Unknown Completed [facility] Hep B, Adol or Pedi Dosage Unknown Completed [facility] Meningococcal B, OMV Unknown Completed [facility] Influenza Virus Vaccine Quad .5 mL IM 6+ MO (FLUZONE/FLULAVAL/FL UARIX) Unknown Completed [facility] SARS-COV-2 COVID-19 PFIZER VACCINE Unknown Completed [facility] SARS-COV-2 COVID-19 PFIZER VACCINE Unknown Completed [facility] SARS-COV-2 COVID-19 PFIZER VACCINE Unknown Completed [facility] SARS-COV-2 COVID-19 MIKE-SUCROSE VACCINE 12 YRS+, BIVALENT 0.3ML, IM, (PFIZER ARITA TOP) Unknown Completed [facility] DTAP Unknown Completed [facility] DTAP Unknown Completed [facility] DTAP Unknown Completed [facility] HIB 4 Dose Schedule Unknown Completed [facility] HIB 4 Dose Schedule Unknown Completed [facility] HIB 4 Dose Schedule Unknown Completed [facility] Hep B, Adol or Pedi Dosage Unknown Completed [facility] Hep B, Adol or Pedi Dosage Unknown Completed [facility] Pneumococcal 7 Conjugate, PCV7 (Prevnar7) Unknown Completed [facility] Pneumococcal 7 Conjugate, PCV7 (Prevnar7) Unknown Completed [facility] Polio (IPV/OPV) Unknown Completed [facility] Polio (IPV/OPV) Unknown Completed [facility] HIB 4 Dose Schedule Unknown Completed [facility] MMR Unknown Completed [facility] Pneumococcal 7 Conjugate, PCV7 (Prevnar7) Unknown Completed [facility] Polio (IPV/OPV) Unknown Completed [facility] Varicella (varivax)(chicken pox) Unknown Completed [facility] HEPATITIS A Unknown Completed [facility] Influenza Virus Vaccine Unknown Completed [facility] HEPATITIS A Unknown Completed [facility] DTAP Unknown Completed [facility] Proquad (MMR/VARICELLA) Unknown Completed [facility] Polio (IPV/OPV) Unknown Completed [facility] Influenza Virus Vaccine Unknown Completed [facility] Influenza Virus Vaccine Unknown Completed [facility] Influenza Virus Vaccine Unknown Completed [facility] Influenza Virus Vaccine Unknown Completed [facility] Influenza Virus Vaccine Unknown Completed [facility] Influenza Virus Vaccine Unknown Completed [facility] Influenza Virus Vaccine (3+ yrs) Unknown Completed [facility] Meningococcal Polysaccharide (groups A, C, Y and W-135) conjugate vaccine (MCV4P) Unknown Completed [facility] TDAP Unknown Completed [facility] Influenza Virus Vaccine (3+ yrs) Unknown Completed [facility] Influenza Virus Vaccine Quad IM 3+ YRS Unknown Completed [facility] HPV9 Unknown Completed [facility] HPV Unknown Completed [facility] HPV9 Unknown Completed [facility] Influenza Virus Vaccine Quad IM 3+ YRS Unknown Completed [facility] Meningococcal Polysaccharide (groups A, C, Y and W-135) conjugate vaccine (MCV4P) Unknown Completed [facility] Influenza Virus Vaccine Quad .5 mL IM 6+ MO (FLUZONE/FLULAVAL/FL UARIX) Unknown Completed [facility] Meningococcal B, OMV Unknown Completed [facility] Hep B, Adol or Pedi Dosage Unknown Completed [facility] Meningococcal B, OMV Unknown Completed [facility] Influenza Virus Vaccine Quad .5 mL IM 6+ MO (FLUZONE/FLULAVAL/FL UARIX) Unknown Completed [facility] SARS-COV-2 COVID-19 PFIZER VACCINE Unknown Completed [facility] SARS-COV-2 COVID-19 PFIZER VACCINE Unknown Completed [facility] SARS-COV-2 COVID-19 PFIZER VACCINE Unknown Completed [facility] SARS-COV-2 COVID-19 MIKE-SUCROSE VACCINE 12 YRS+, BIVALENT 0.3ML, IM, (PFIZER ARITA TOP) Unknown Completed [facility] HEPATITIS A Unknown Completed [facility] Influenza Virus Vaccine Unknown Completed [facility] HEPATITIS A Unknown Completed [facility] DTAP Unknown Completed [facility] Proquad (MMR/VARICELLA) Unknown Completed [facility] Polio (IPV/OPV) Unknown Completed [facility] Influenza Virus Vaccine Unknown Completed [facility] Influenza Virus Vaccine Unknown Completed [facility] Influenza Virus Vaccine Unknown Completed [facility] Influenza Virus Vaccine Unknown Completed [facility] Influenza Virus Vaccine Unknown Completed [facility] Influenza Virus Vaccine Unknown Completed [facility] Influenza Virus Vaccine (3+ yrs) Unknown Completed [facility] Meningococcal Polysaccharide (groups A, C, Y and W-135) conjugate vaccine (MCV4P) Unknown Completed [facility] TDAP Unknown Completed [facility] Influenza Virus Vaccine (3+ yrs) Unknown Completed [facility] Influenza Virus Vaccine Quad IM 3+ YRS Unknown Completed [facility] HPV9 Unknown Completed [facility] HPV Unknown Completed [facility] HPV9 Unknown Completed [facility] Influenza Virus Vaccine Quad IM 3+ YRS Unknown Completed [facility] Meningococcal Polysaccharide (groups A, C, Y and W-135) conjugate vaccine (MCV4P) Unknown Completed [facility] Influenza Virus Vaccine Quad .5 mL IM 6+ MO (FLUZONE/FLULAVAL/FL UARIX) Unknown Completed [facility] Meningococcal B, OMV Unknown Completed [facility] Hep B, Adol or Pedi Dosage Unknown Completed [facility] Meningococcal B, OMV Unknown Completed [facility] Influenza Virus Vaccine Quad .5 mL IM 6+ MO (FLUZONE/FLULAVAL/FL UARIX) Unknown Completed [facility] SARS-COV-2 COVID-19 PFIZER VACCINE Unknown Completed [facility] SARS-COV-2 COVID-19 PFIZER VACCINE Unknown Completed [facility] SARS-COV-2 COVID-19 PFIZER VACCINE Unknown Completed [facility] SARS-COV-2 COVID-19 MIKE-SUCROSE VACCINE 12 YRS+, BIVALENT 0.3ML, IM, (PFIZER ARITA TOP) Unknown Completed [facility] HEPATITIS A Unknown Completed [facility] Influenza Virus Vaccine Unknown Completed [facility] HEPATITIS A Unknown Completed [facility] DTAP Unknown Completed [facility] Proquad (MMR/VARICELLA) Unknown Completed [facility] Polio (IPV/OPV) Unknown Completed [facility] Influenza Virus Vaccine Unknown Completed [facility] Influenza Virus Vaccine Unknown Completed [facility] Influenza Virus Vaccine Unknown Completed [facility] Influenza Virus Vaccine Unknown Completed [facility] Influenza Virus Vaccine Unknown Completed [facility] Influenza Virus Vaccine Unknown Completed [facility] Influenza Virus Vaccine (3+ yrs) Unknown Completed [facility] Meningococcal Polysaccharide (groups A, C, Y and W-135) conjugate vaccine (MCV4P) Unknown Completed [facility] TDAP Unknown Completed [facility] Influenza Virus Vaccine (3+ yrs) Unknown Completed [facility] Influenza Virus Vaccine Quad IM 3+ YRS Unknown Completed [facility] HPV9 Unknown Completed [facility] HPV Unknown Completed [facility] HPV9 Unknown Completed [facility] Influenza Virus Vaccine Quad IM 3+ YRS Unknown Completed [facility] Meningococcal Polysaccharide (groups A, C, Y and W-135) conjugate vaccine (MCV4P) Unknown Completed [facility] Influenza Virus Vaccine Quad .5 mL IM 6+ MO (FLUZONE/FLULAVAL/FL UARIX) Unknown Completed [facility] Meningococcal B, OMV Unknown Completed [facility] Hep B, Adol or Pedi Dosage Unknown Completed [facility] Meningococcal B, OMV Unknown Completed [facility] Influenza Virus Vaccine Quad .5 mL IM 6+ MO (FLUZONE/FLULAVAL/FL UARIX) Unknown Completed [facility] SARS-COV-2 COVID-19 PFIZER VACCINE Unknown Completed [facility] SARS-COV-2 COVID-19 PFIZER VACCINE Unknown Completed [facility] SARS-COV-2 COVID-19 PFIZER VACCINE Unknown Completed [facility] SARS-COV-2 COVID-19 MIKE-SUCROSE VACCINE 12 YRS+, BIVALENT 0.3ML, IM, (PFIZER ARITA TOP) Unknown Completed [facility] HEPATITIS A Unknown Completed [facility] Influenza Virus Vaccine Unknown Completed [facility] HEPATITIS A Unknown Completed [facility] DTAP Unknown Completed [facility] Proquad (MMR/VARICELLA) Unknown Completed [facility] Polio (IPV/OPV) Unknown Completed [facility] Influenza Virus Vaccine Unknown Completed [facility] Influenza Virus Vaccine Unknown Completed [facility] Influenza Virus Vaccine Unknown Completed [facility] Influenza Virus Vaccine Unknown Completed [facility] Influenza Virus Vaccine Unknown Completed [facility] Influenza Virus Vaccine Unknown Completed [facility] Influenza Virus Vaccine (3+ yrs) Unknown Completed [facility] Meningococcal Polysaccharide (groups A, C, Y and W-135) conjugate vaccine (MCV4P) Unknown Completed [facility] TDAP Unknown Completed [facility] [facility] Vacc[facility] (3+ yrs) Unknown Completed [facility] Influenza Virus Vaccine Quad IM 3+ YRS Unknown Completed [facility] HPV9 Unknown Completed [facility] HPV Unknown Completed [facility] HPV9 Unknown Completed [facility] Influenza Virus Vaccine Quad IM 3+ YRS Unknown Completed [facility] Meningococcal Polysaccharide (groups A, C, Y and W-135) conjugate vaccine (MCV4P) Unknown Completed [facility] Influenza Virus Vaccine Quad .5 mL IM 6+ MO (FLUZONE/FLULAVAL/FL UARIX) Unknown Completed [facility] Meningococcal B, OMV Unknown Completed [facility] Hep B, Adol or Pedi Dosage Unknown Completed [facility] Meningococcal B, OMV Unknown Completed [facility] Influenza Virus Vaccine Quad .5 mL IM 6+ MO (FLUZONE/FLULAVAL/FL UARIX) Unknown Completed [facility] SARS-COV-2 COVID-19 PFIZER VACCINE Unknown Completed [facility] SARS-COV-2 COVID-19 PFIZER VACCINE Unknown Completed [facility] SARS-COV-2 COVID-19 PFIZER VACCINE Unknown Completed [facility] SARS-COV-2 COVID-19 MIKE-SUCROSE VACCINE 12 YRS+, BIVALENT 0.3ML, IM, (PFIZER ARITA TOP) Unknown Completed [facility] HEPATITIS A Unknown Completed [facility] Influenza Virus Vaccine Unknown Completed [facility] HEPATITIS A Unknown Completed [facility] DTAP Unknown Completed [facility] Proquad (MMR/VARICELLA) Unknown Completed [facility] Polio (IPV/OPV) Unknown Completed [facility] Influenza Virus Vaccine Unknown Completed [facility] Influenza Virus Vaccine Unknown Completed [facility] Influenza Virus Vaccine Unknown Completed [facility] Influenza Virus Vaccine Unknown Completed [facility] Influenza Virus Vaccine Unknown Completed [facility] Influenza Virus Vaccine Unknown Completed [facility] Influenza Virus Vaccine (3+ yrs) Unknown Completed [facility] Meningococcal Polysaccharide (groups A, C, Y and W-135) conjugate vaccine (MCV4P) Unknown Completed [facility] TDAP Unknown Completed [facility] Influenza Virus Vaccine (3+ yrs) Unknown Completed [facility] Influenza Virus Vaccine Quad IM 3+ YRS Unknown Completed [facility] HPV9 Unknown Completed [facility] HPV Unknown Completed [facility] HPV9 Unknown Completed [facility] Influenza Virus Vaccine Quad IM 3+ YRS Unknown Completed [facility] Meningococcal Polysaccharide (groups A, C, Y and W-135) conjugate vaccine (MCV4P) Unknown Completed [facility] Influenza Virus Vaccine Quad .5 mL IM 6+ MO (FLUZONE/FLULAVAL/FL UARIX) Unknown Completed [facility] Meningococcal B, OMV Unknown Completed [facility] Hep B, Adol or Pedi Dosage Unknown Completed [facility] Meningococcal B, OMV Unknown Completed [facility] Influenza Virus Vaccine Quad .5 mL IM 6+ MO (FLUZONE/FLULAVAL/FL UARIX) Unknown Completed [facility] SARS-COV-2 COVID-19 PFIZER VACCINE Unknown Completed [facility] SARS-COV-2 COVID-19 PFIZER VACCINE Unknown Completed [facility] SARS-COV-2 COVID-19 PFIZER VACCINE Unknown Completed [facility] SARS-COV-2 COVID-19 MIKE-SUCROSE VACCINE 12 YRS+, BIVALENT 0.3ML, IM, (PFIZER ARITA TOP) Unknown Completed [facility] HEPATITIS A Unknown Completed [facility] Influenza Virus Vaccine Unknown Completed [facility] HEPATITIS A Unknown Completed [facility] DTAP Unknown Completed [facility] Proquad (MMR/VARICELLA) Unknown Completed [facility] Polio (IPV/OPV) Unknown Completed [facility] Influenza Virus Vaccine Unknown Completed [facility] Influenza Virus Vaccine Unknown Completed [facility] Influenza Virus Vaccine Unknown Completed [facility] Influenza Virus Vaccine Unknown Completed [facility] Influenza Virus Vaccine Unknown Completed [facility] Influenza Virus Vaccine Unknown Completed [facility] Influenza Virus Vaccine (3+ yrs) Unknown Completed [facility] Meningococcal Polysaccharide (groups A, C, Y and W-135) conjugate vaccine (MCV4P) Unknown Completed [facility] TDAP Unknown Completed [facility] Influenza Virus Vaccine (3+ yrs) Unknown Completed [facility] Influenza Virus Vaccine Quad IM 3+ YRS Unknown Completed [facility] HPV9 Unknown Completed [facility] HPV Unknown Completed [facility] HPV9 Unknown Completed [facility] Influenza Virus Vaccine Quad IM 3+ YRS Unknown Completed [facility] Meningococcal Polysaccharide (groups A, C, Y and W-135) conjugate vaccine (MCV4P) Unknown Completed [facility] Influenza Virus Vaccine Quad .5 mL IM 6+ MO (FLUZONE/FLULAVAL/FL UARIX) Unknown Completed [facility] Meningococcal B, OMV Unknown Completed [facility] Hep B, Adol or Pedi Dosage Unknown Completed [facility] Meningococcal B, OMV Unknown Completed [facility] Influenza Virus Vaccine Quad .5 mL IM 6+ MO (FLUZONE/FLULAVAL/FL UARIX) Unknown Completed [facility] SARS-COV-2 COVID-19 PFIZER VACCINE Unknown Completed [facility] SARS-COV-2 COVID-19 PFIZER VACCINE Unknown Completed [facility] SARS-COV-2 COVID-19 PFIZER VACCINE Unknown Completed [facility] SARS-COV-2 COVID-19 MIKE-SUCROSE VACCINE 12 YRS+, BIVALENT 0.3ML, IM, (PFIZER ARITA TOP) Unknown Completed [facility] DTAP Unknown Completed [facility] DTAP Unknown Completed [facility] DTAP Unknown Completed [facility] HIB 4 Dose Schedule Unknown Completed [facility] HIB 4 Dose Schedule Unknown Completed [facility] HIB 4 Dose Schedule Unknown Completed [facility] Hep B, Adol or Pedi Dosage Unknown Completed [facility] Hep B, Adol or Pedi Dosage Unknown Completed [facility] Pneumococcal 7 Conjugate, PCV7 (Prevnar7) Unknown Completed [facility] Pneumococcal 7 Conjugate, PCV7 (Prevnar7) Unknown Completed [facility] Polio (IPV/OPV) Unknown Completed [facility] Polio (IPV/OPV) Unknown Completed [facility] HIB 4 Dose Schedule Unknown Completed [facility] MMR Unknown Completed [facility] Pneumococcal 7 Conjugate, PCV7 (Prevnar7) Unknown Completed [facility] Polio (IPV/OPV) Unknown Completed [facility] Varicella (varivax)(chicken pox) Unknown Completed [facility] HEPATITIS A Unknown Completed [facility] Influenza Virus Vaccine Unknown Completed [facility] HEPATITIS A Unknown Completed [facility] DTAP Unknown Completed [facility] Proquad (MMR/VARICELLA) Unknown Completed [facility] Polio (IPV/OPV) Unknown Completed [facility] Influenza Virus Vaccine Unknown Completed [facility] Influenza Virus Vaccine Unknown Completed [facility] Influenza Virus Vaccine Unknown Completed [facility] Influenza Virus Vaccine Unknown Completed [facility] Influenza Virus Vaccine Unknown Completed [facility] Influenza Virus Vaccine Unknown Completed [facility] Influenza Virus Vaccine (3+ yrs) Unknown Completed [facility] Meningococcal Polysaccharide (groups A, C, Y and W-135) conjugate vaccine (MCV4P) Unknown Completed [facility] TDAP Unknown Completed [facility] Influenza Virus Vaccine (3+ yrs) Unknown Completed [facility] Influenza Virus Vaccine Quad IM 3+ YRS Unknown Completed [facility] HPV9 Unknown Completed [facility] HPV Unknown Completed [facility] HPV9 Unknown Completed [facility] Influenza Virus Vaccine Quad IM 3+ YRS Unknown Completed [facility] Meningococcal Polysaccharide (groups A, C, Y and W-135) conjugate vaccine (MCV4P) Unknown Completed [facility] Influenza Virus Vaccine Quad .5 mL IM 6+ MO (FLUZONE/FLULAVAL/FL UARIX) Unknown Completed [facility] Meningococcal B, OMV Unknown Completed [facility] Hep B, Adol or Pedi Dosage Unknown Completed [facility] Meningococcal B, OMV Unknown Completed [facility] Influenza Virus Vaccine Quad .5 mL IM 6+ MO (FLUZONE/FLULAVAL/FL UARIX) Unknown Completed [facility] SARS-COV-2 COVID-19 PFIZER VACCINE Unknown Completed [facility] SARS-COV-2 COVID-19 PFIZER VACCINE Unknown Completed [facility] SARS-COV-2 COVID-19 PFIZER VACCINE Unknown Completed [facility] SARS-COV-2 COVID-19 MIKE-SUCROSE VACCINE 12 YRS+, BIVALENT 0.3ML, IM, (PFIZER ARITA TOP) Unknown Completed [facility] DTAP Unknown Completed [facility] DTAP Unknown Completed [facility] DTAP Unknown Completed [facility] HIB 4 Dose Schedule Unknown Completed [facility] HIB 4 Dose Schedule Unknown Completed [facility] HIB 4 Dose Schedule Unknown Completed [facility] Hep B, Adol or Pedi Dosage Unknown Completed [facility] Hep B, Adol or Pedi Dosage Unknown Completed [facility] Pneumococcal 7 Conjugate, PCV7 (Prevnar7) Unknown Completed [facility] Pneumococcal 7 Conjugate, PCV7 (Prevnar7) Unknown Completed [facility] Polio (IPV/OPV) Unknown Completed [facility] Polio (IPV/OPV) Unknown Completed [facility] HIB 4 Dose Schedule Unknown Completed [facility] MMR Unknown Completed [facility] Pneumococcal 7 Conjugate, PCV7 (Prevnar7) Unknown Completed [facility] Polio (IPV/OPV) Unknown Completed [facility] Varicella (varivax)(chicken pox) Unknown Completed [facility] HEPATITIS A Unknown Completed [facility] Influenza Virus Vaccine Unknown Completed [facility] HEPATITIS A Unknown Completed [facility] DTAP Unknown Completed [facility] Proquad (MMR/VARICELLA) Unknown Completed [facility] Polio (IPV/OPV) Unknown Completed [facility] Influenza Virus Vaccine Unknown Completed [facility] Influenza Virus Vaccine Unknown Completed [facility] Influenza Virus Vaccine Unknown Completed [facility] Influenza Virus Vaccine Unknown Completed [facility] Influenza Virus Vaccine Unknown Completed [facility] Influenza Virus Vaccine Unknown Completed [facility] Influenza Virus Vaccine (3+ yrs) Unknown Completed [facility] Meningococcal Polysaccharide (groups A, C, Y and W-135) conjugate vaccine (MCV4P) Unknown Completed [facility] TDAP Unknown Completed [facility] Influenza Virus Vaccine (3+ yrs) Unknown Completed [facility] Influenza Virus Vaccine Quad IM 3+ YRS Unknown Completed [facility] HPV9 Unknown Completed [facility] HPV Unknown Completed [facility] HPV9 Unknown Completed [facility] Influenza Virus Vaccine Quad IM 3+ YRS Unknown Completed [facility] Meningococcal Polysaccharide (groups A, C, Y and W-135) conjugate vaccine (MCV4P) Unknown Completed [facility] Influenza Virus Vaccine Quad .5 mL IM 6+ MO (FLUZONE/FLULAVAL/FL UARIX) Unknown Completed [facility] Meningococcal B, OMV Unknown Completed [facility] Hep B, Adol or Pedi Dosage Unknown Completed [facility] Meningococcal B, OMV Unknown Completed [facility] Influenza Virus Vaccine Quad .5 mL IM 6+ MO (FLUZONE/FLULAVAL/FL UARIX) Unknown Completed [facility] SARS-COV-2 COVID-19 PFIZER VACCINE Unknown Completed [facility] SARS-COV-2 COVID-19 PFIZER VACCINE Unknown Completed [facility] SARS-COV-2 COVID-19 PFIZER VACCINE Unknown Completed [facility] SARS-COV-2 COVID-19 MIKE-SUCROSE VACCINE 12 YRS+, BIVALENT 0.3ML, IM, (PFIZER ARITA TOP) Unknown Completed [facility] DTAP Unknown Completed [facility] DTAP Unknown Completed [facility] DTAP Unknown Completed [facility] HIB 4 Dose Schedule Unknown Completed [facility] HIB 4 Dose Schedule Unknown Completed [facility] HIB 4 Dose Schedule Unknown Completed [facility] Hep B, Adol or Pedi Dosage Unknown Completed [facility] Hep B, Adol or Pedi Dosage Unknown Completed [facility] Pneumococcal 7 Conjugate, PCV7 (Prevnar7) Unknown Completed [facility] Pneumococcal 7 Conjugate, PCV7 (Prevnar7) Unknown Completed [facility] Polio (IPV/OPV) Unknown Completed [facility] Polio (IPV/OPV) Unknown Completed [facility] HIB 4 Dose Schedule Unknown Completed [facility] MMR Unknown Completed [facility] Pneumococcal 7 Conjugate, PCV7 (Prevnar7) Unknown Completed [facility] Polio (IPV/OPV) Unknown Completed [facility] Varicella (varivax)(chicken pox) Unknown Completed [facility] HEPATITIS A Unknown Completed [facility] Influenza Virus Vaccine Unknown Completed [facility] HEPATITIS A Unknown Completed [facility] DTAP Unknown Completed [facility] Proquad (MMR/VARICELLA) Unknown Completed [facility] Polio (IPV/OPV) [facility] Completed [facility] Influenza Virus Vaccine Unknown Completed [facility] Influenza Virus Vaccine Unknown Completed [facility] Influenza Virus Vaccine Unknown Completed [facility] Influenza Virus Vaccine Unknown Completed [facility] Influenza Virus Vaccine Unknown Completed [facility] Influenza Virus Vaccine (3+ yrs) Unknown Completed [facility] Meningococcal Polysaccharide (groups A, C, Y and W-135) conjugate vaccine (MCV4P) Unknown Completed [facility] TDAP Unknown Completed [facility] Influenza Virus Vaccine (3+ yrs) Unknown Completed [facility] Influenza Virus Vaccine Quad IM 3+ YRS Unknown Completed [facility] HPV9 Unknown Completed [facility] HPV Unknown Completed [facility] HPV9 Unknown Completed [facility] Influenza Virus Vaccine Quad IM 3+ YRS Unknown Completed [facility] Meningococcal Polysaccharide (groups A, C, Y and W-135) conjugate vaccine (MCV4P) Unknown Completed [facility] Influenza Virus Vaccine Quad .5 mL IM 6+ MO (FLUZONE/FLULAVAL/FL UARIX) Unknown Completed [facility] Meningococcal B, OMV Unknown Completed [facility] Hep B, Adol or Pedi Dosage Unknown Completed [facility] Meningococcal B, OMV Unknown Completed [facility] Influenza Virus Vaccine Quad .5 mL IM 6+ MO (FLUZONE/FLULAVAL/FL UARIX) Unknown Completed [facility] SARS-COV-2 COVID-19 PFIZER VACCINE Unknown Completed [facility] SARS-COV-2 COVID-19 PFIZER VACCINE Unknown Completed [facility] SARS-COV-2 COVID-19 PFIZER VACCINE Unknown Completed [facility] SARS-COV-2 COVID-19 MIKE-SUCROSE VACCINE 12 YRS+, BIVALENT 0.3ML, IM, (PFIZER ARITA TOP) Unknown Completed [facility] HEPATITIS A Unknown Completed [facility] Influenza Virus Vaccine Unknown Completed [facility] HEPATITIS A Unknown Completed [facility] DTAP Unknown Completed [facility] Proquad (MMR/VARICELLA) Unknown Completed [facility] Polio (IPV/OPV) Unknown [facility] Vacc[facility] Completed [facility] Influenza Virus Vaccine Unknown Completed [facility] Influenza Virus Vaccine Unknown Completed [facility] Influenza Virus Vaccine Unknown Completed [facility] Influenza Virus Vaccine Unknown Completed [facility] Influenza Virus Vaccine Unknown Completed [facility] Influenza Virus Vaccine (3+ yrs) Unknown Completed [facility] Meningococcal Polysaccharide (groups A, C, Y and W-135) conjugate vaccine (MCV4P) Unknown Completed [facility] TDAP Unknown Completed [facility] Influenza Virus Vaccine (3+ yrs) Unknown Completed [facility] Influenza Virus Vaccine Quad IM 3+ YRS Unknown Completed [facility] HPV9 Unknown Completed [facility] HPV Unknown Completed [facility] HPV9 Unknown Completed [facility] Influenza Virus Vaccine Quad IM 3+ YRS Unknown Completed [facility] Meningococcal Polysaccharide (groups A, C, Y and W-135) conjugate vaccine (MCV4P) Unknown Completed [facility] Influenza Virus Vaccine Quad .5 mL IM 6+ MO (FLUZONE/FLULAVAL/FL UARIX) Unknown Completed [facility] Meningococcal B, OMV Unknown Completed [facility] Hep B, Adol or Pedi Dosage Unknown Completed [facility] Meningococcal B, OMV Unknown Completed [facility] Influenza Virus Vaccine Quad .5 mL IM 6+ MO (FLUZONE/FLULAVAL/FL UARIX) Unknown Completed [facility] SARS-COV-2 COVID-19 PFIZER VACCINE Unknown Completed [facility] SARS-COV-2 COVID-19 PFIZER VACCINE Unknown Completed [facility] SARS-COV-2 COVID-19 PFIZER VACCINE Unknown Completed [facility] SARS-COV-2 COVID-19 MIKE-SUCROSE VACCINE 12 YRS+, BIVALENT 0.3ML, IM, (PFIZER ARITA TOP) Unknown Completed [facility] HEPATITIS A Unknown Completed [facility] Influenza Virus Vaccine Unknown Completed [facility] HEPATITIS A Unknown Completed [facility] DTAP Unknown Completed [facility] Proquad (MMR/VARICELLA) Unknown Completed [facility] Polio (IPV/OPV) [facility] Completed [facility] Influenza Virus Vaccine Unknown Completed [facility] Influenza Virus Vaccine Unknown Completed [facility] Influenza Virus Vaccine Unknown Completed [facility] Influenza Virus Vaccine Unknown Completed [facility] Influenza Virus Vaccine Unknown Completed [facility] Influenza Virus Vaccine (3+ yrs) Unknown Completed [facility] Meningococcal Polysaccharide (groups A, C, Y and W-135) conjugate vaccine (MCV4P) Unknown Completed [facility] TDAP Unknown Completed [facility] Influenza Virus Vaccine (3+ yrs) Unknown Completed [facility] Influenza Virus Vaccine Quad IM 3+ YRS Unknown Completed [facility] HPV9 Unknown Completed [facility] HPV Unknown Completed [facility] HPV9 Unknown Completed [facility] Influenza Virus Vaccine Quad IM 3+ YRS Unknown Completed [facility] Meningococcal Polysaccharide (groups A, C, Y and W-135) conjugate vaccine (MCV4P) Unknown Completed [facility] Influenza Virus Vaccine Quad .5 mL IM 6+ MO (FLUZONE/FLULAVAL/FL UARIX) Unknown Completed [facility] Meningococcal B, OMV Unknown Completed [facility] Hep B, Adol or Pedi Dosage Unknown Completed [facility] Meningococcal B, OMV Unknown Completed [facility] Influenza Virus Vaccine Quad .5 mL IM 6+ MO (FLUZONE/FLULAVAL/FL UARIX) Unknown Completed [facility] SARS-COV-2 COVID-19 PFIZER VACCINE Unknown Completed [facility] SARS-COV-2 COVID-19 PFIZER VACCINE Unknown Completed [facility] SARS-COV-2 COVID-19 PFIZER VACCINE Unknown Completed [facility] SARS-COV-2 COVID-19 MIKE-SUCROSE VACCINE 12 YRS+, BIVALENT 0.3ML, IM, (PFIZER ARITA TOP) Unknown Completed [facility] HEPATITIS A Unknown Completed [facility] Influenza Virus Vaccine Unknown Completed [facility] HEPATITIS A Unknown Completed [facility] DTAP Unknown Completed [facility] Proquad (MMR/VARICELLA) Unknown Completed [facility] Polio (IPV/OPV) [facility] Com[facility] Influenza Virus Vaccine Unknown Completed [facility] Influenza Virus Vaccine Unknown Completed [facility] Influenza Virus Vaccine Unknown Completed [facility] Influenza Virus Vaccine Unknown Completed [facility] Influenza Virus Vaccine Unknown Completed [facility] Influenza Virus Vaccine (3+ yrs) Unknown Completed [facility] Meningococcal Polysaccharide (groups A, C, Y and W-135) conjugate vaccine (MCV4P) Unknown Completed [facility] TDAP Unknown Completed [facility] Influenza Virus Vaccine (3+ yrs) Unknown Completed [facility] Influenza Virus Vaccine Quad IM 3+ YRS Unknown Completed [facility] HPV9 Unknown Completed [facility] HPV Unknown Completed [facility] HPV9 Unknown Completed [facility] Influenza Virus Vaccine Quad IM 3+ YRS Unknown Completed [facility] Meningococcal Polysaccharide (groups A, C, Y and W-135) conjugate vaccine (MCV4P) Unknown Completed [facility] Influenza Virus Vaccine Quad .5 mL IM 6+ MO (FLUZONE/FLULAVAL/FL UARIX) Unknown Completed [facility] Meningococcal B, OMV Unknown Completed [facility] Hep B, Adol or Pedi Dosage Unknown Completed [facility] Meningococcal B, OMV Unknown Completed [facility] Influenza Virus Vaccine Quad .5 mL IM 6+ MO (FLUZONE/FLULAVAL/FL UARIX) Unknown Completed [facility] SARS-COV-2 COVID-19 PFIZER VACCINE Unknown Completed [facility] SARS-COV-2 COVID-19 PFIZER VACCINE Unknown Completed [facility] SARS-COV-2 COVID-19 PFIZER VACCINE Unknown Completed [facility] SARS-COV-2 COVID-19 MIKE-SUCROSE VACCINE 12 YRS+, BIVALENT 0.3ML, IM, (PFIZER ARITA TOP) Unknown Completed [facility] DTAP Unknown Completed [facility] DTAP Unknown Completed [facility] DTAP Unknown Completed [facility] HIB 4 Dose Schedule Unknown Completed [facility] HIB 4 Dose Schedule Unknown Completed [facility] HIB 4 Dose Schedule Unknown Completed [facility] Hep B, Adol or Pedi Dosage Unknown Completed [facility] Hep B, Adol or Pedi Dosage Unknown Completed [facility] Pneumococcal 7 Conjugate, PCV7 (Prevnar7) Unknown Completed [facility] Pneumococcal 7 Conjugate, PCV7 (Prevnar7) Unknown Completed [facility] Polio (IPV/OPV) Unknown Completed [facility] Polio (IPV/OPV) Unknown Completed [facility] HIB 4 Dose Schedule Unknown Completed [facility] MMR Unknown Completed [facility] Pneumococcal 7 Conjugate, PCV7 (Prevnar7) Unknown Completed [facility] Polio (IPV/OPV) Unknown Completed [facility] Varicella (varivax)(chicken pox) Unknown Completed [facility] HEPATITIS A Unknown Completed [facility] Influenza Virus Vaccine Unknown Completed [facility] HEPATITIS A Unknown Completed [facility] DTAP Unknown Completed [facility] Proquad (MMR/VARICELLA) Unknown Completed [facility] Polio (IPV/OPV) Unknown Completed [facility] Influenza Virus Vaccine Unknown Completed [facility] Influenza Virus Vaccine Unknown Completed [facility] Influenza Virus Vaccine Unknown Completed [facility] Influenza Virus Vaccine Unknown Completed [facility] Influenza Virus Vaccine Unknown Completed [facility] Influenza Virus Vaccine Unknown Completed [facility] Influenza Virus Vaccine (3+ yrs) Unknown Completed [facility] Meningococcal Polysaccharide (groups A, C, Y and W-135) conjugate vaccine (MCV4P) Unknown Completed [facility] TDAP Unknown Completed [facility] Influenza Virus Vaccine (3+ yrs) Unknown Completed [facility] Influenza Virus Vaccine Quad IM 3+ YRS Unknown Completed [facility] HPV9 Unknown Completed [facility] HPV Unknown Completed [facility] HPV9 Unknown Completed [facility] Influenza Virus Vaccine Quad IM 3+ YRS Unknown Completed [facility] Meningococcal Polysaccharide (groups A, C, Y and W-135) conjugate vaccine (MCV4P) Unknown Completed [facility] Influenza Virus Vaccine Quad .5 mL IM 6+ MO (FLUZONE/FLULAVAL/FL UARIX) Unknown Completed [facility] Meningococcal B, OMV Unknown Completed [facility] Hep B, Adol or Pedi Dosage Unknown Completed [facility] Meningococcal B, OMV Unknown Completed [facility] Influenza Virus Vaccine Quad .5 mL IM 6+ MO (FLUZONE/FLULAVAL/FL UARIX) Unknown Completed [facility] SARS-COV-2 COVID-19 PFIZER VACCINE Unknown Completed [facility] SARS-COV-2 COVID-19 PFIZER VACCINE Unknown Completed [facility] SARS-COV-2 COVID-19 PFIZER VACCINE Unknown Completed [facility] SARS-COV-2 COVID-19 MIKE-SUCROSE VACCINE 12 YRS+, BIVALENT 0.3ML, IM, (PFIZER ARITA TOP) Unknown Completed [facility] DTAP Unknown Completed [facility] DTAP Unknown Completed [facility] DTAP Unknown Completed [facility] HIB 4 Dose Schedule Unknown Completed [facility] HIB 4 Dose Schedule Unknown Completed [facility] HIB 4 Dose Schedule Unknown Completed [facility] Hep B, Adol or Pedi Dosage Unknown Completed [facility] Hep B, Adol or Pedi Dosage Unknown Completed [facility] Pneumococcal 7 Conjugate, PCV7 (Prevnar7) Unknown Completed [facility] Pneumococcal 7 Conjugate, PCV7 (Prevnar7) Unknown Completed [facility] Polio (IPV/OPV) Unknown Completed [facility] Polio (IPV/OPV) Unknown Completed [facility] HIB 4 Dose Schedule Unknown Completed [facility] MMR Unknown Completed [facility] Pneumococcal 7 Conjugate, PCV7 (Prevnar7) Unknown Completed [facility] Polio (IPV/OPV) Unknown Completed [facility] Varicella (varivax)(chicken pox) Unknown Completed [facility] HEPATITIS A Unknown Completed [facility] Influenza Virus Vaccine Unknown Completed [facility] HEPATITIS A Unknown Completed [facility] DTAP Unknown Completed [facility] Proquad (MMR/VARICELLA) Unknown Completed [facility] Polio (IPV/OPV) Unknown Completed [facility] Influenza Virus Vaccine Unknown Completed [facility] Influenza Virus Vaccine Unknown Completed [facility] Influenza Virus Vaccine Unknown Completed [facility] Influenza Virus Vaccine Unknown Completed [facility] Influenza Virus Vaccine Unknown Completed [facility] Influenza Virus Vaccine Unknown Completed [facility] Influenza Virus Vaccine (3+ yrs) Unknown Completed [facility] Meningococcal Polysaccharide (groups A, C, Y and W-135) conjugate vaccine (MCV4P) Unknown Completed [facility] TDAP Unknown Completed [facility] Influenza Virus Vaccine (3+ yrs) Unknown Completed [facility] Influenza Virus Vaccine Quad IM 3+ YRS Unknown Completed [facility] HPV9 Unknown Completed [facility] HPV Unknown Completed [facility] HPV9 Unknown Completed [facility] Influenza Virus Vaccine Quad IM 3+ YRS Unknown Completed [facility] Meningococcal Polysaccharide (groups A, C, Y and W-135) conjugate vaccine (MCV4P) Unknown Completed [facility] Influenza Virus Vaccine Quad .5 mL IM 6+ MO (FLUZONE/FLULAVAL/FL UARIX) Unknown Completed [facility] Meningococcal B, OMV Unknown Completed [facility] Hep B, Adol or Pedi Dosage Unknown Completed [facility] Meningococcal B, OMV Unknown Completed [facility] Influenza Virus Vaccine Quad .5 mL IM 6+ MO (FLUZONE/FLULAVAL/FL UARIX) Unknown Completed [facility] SARS-COV-2 COVID-19 PFIZER VACCINE Unknown Completed [facility] SARS-COV-2 COVID-19 PFIZER VACCINE Unknown Completed [facility] SARS-COV-2 COVID-19 PFIZER VACCINE Unknown Completed [facility] SARS-COV-2 COVID-19 MIKE-SUCROSE VACCINE 12 YRS+, BIVALENT 0.3ML, IM, (PFIZER ARITA TOP) Unknown Completed [facility] DTAP Unknown Completed [facility] DTAP Unknown Completed [facility] DTAP Unknown Completed [facility] HIB 4 Dose Schedule Unknown Completed [facility] HIB 4 Dose Schedule Unknown Completed [facility] HIB 4 Dose Schedule Unknown Completed [facility] Hep B, Adol or Pedi Dosage Unknown Completed [facility] Hep B, Adol or Pedi Dosage Unknown Completed [facility] Pneumococcal 7 Conjugate, PCV7 (Prevnar7) Unknown Completed [facility] Pneumococcal 7 Conjugate, PCV7 (Prevnar7) Unknown Completed [facility] Polio (IPV/OPV) Unknown Completed [facility] Polio (IPV/OPV) Unknown Completed [facility] HIB 4 Dose Schedule Unknown Completed [facility] MMR Unknown Completed [facility] Pneumococcal 7 Conjugate, PCV7 (Prevnar7) Unknown Completed [facility] Polio (IPV/OPV) Unknown Completed [facility] Varicella (varivax)(chicken pox) Unknown Completed [facility] HEPATITIS A Unknown Completed [facility] Influenza Virus Vaccine Unknown Completed [facility] HEPATITIS A Unknown Completed [facility] DTAP Unknown Completed [facility] Proquad (MMR/VARICELLA) Unknown Completed [facility] Polio (IPV/OPV) Unknown Completed [facility] Influenza Virus Vaccine Unknown Completed [facility] Influenza Virus Vaccine Unknown Completed [facility] Influenza Virus Vaccine Unknown Completed [facility] Influenza Virus Vaccine Unknown Completed [facility] Influenza Virus Vaccine Unknown Completed [facility] Influenza Virus Vaccine Unknown Completed [facility] Influenza Virus Vaccine (3+ yrs) Unknown Completed [facility] Meningococcal Polysaccharide (groups A, C, Y and W-135) conjugate vaccine (MCV4P) Unknown Completed [facility] TDAP Unknown Completed [facility] Influenza Virus Vaccine (3+ yrs) Unknown Completed [facility] Influenza Virus Vaccine Quad IM 3+ YRS Unknown Completed [facility] HPV9 Unknown Completed [facility] HPV Unknown Completed [facility] HPV9 Unknown Completed [facility] Influenza Virus Vaccine Quad IM 3+ YRS Unknown Completed [facility] Meningococcal Polysaccharide (groups A, C, Y and W-135) conjugate vaccine (MCV4P) Unknown Completed [facility] Influenza Virus Vaccine Quad .5 mL IM 6+ MO (FLUZONE/FLULAVAL/FL UARIX) Unknown Completed [facility] Meningococcal B, OMV Unknown Completed [facility] Hep B, Adol or Pedi Dosage Unknown Completed [facility] Meningococcal B, OMV Unknown Completed [facility] Influenza Virus Vaccine Quad .5 mL IM 6+ MO (FLUZONE/FLULAVAL/FL UARIX) Unknown Completed [facility] SARS-COV-2 COVID-19 PFIZER VACCINE Unknown Completed [facility] SARS-COV-2 COVID-19 PFIZER VACCINE Unknown Completed [facility] SARS-COV-2 COVID-19 PFIZER VACCINE Unknown Completed [facility] SARS-COV-2 COVID-19 MIKE-SUCROSE VACCINE 12 YRS+, BIVALENT 0.3ML, IM, (PFIZER ARITA TOP) Unknown Completed [facility] DTAP Unknown Completed [facility] DTAP Unknown Completed [facility] DTAP Unknown Completed [facility] HIB 4 Dose Schedule Unknown Completed [facility] HIB 4 Dose Schedule Unknown Completed [facility] HIB 4 Dose Schedule Unknown Completed [facility] Hep B, Adol or Pedi Dosage Unknown Completed [facility] Hep B, Adol or Pedi Dosage Unknown Completed [facility] Pneumococcal 7 Conjugate, PCV7 (Prevnar7) Unknown Completed [facility] Pneumococcal 7 Conjugate, PCV7 (Prevnar7) Unknown Completed [facility] Polio (IPV/OPV) Unknown Completed [facility] Polio (IPV/OPV) Unknown Completed [facility] HIB 4 Dose Schedule Unknown Completed [facility] MMR Unknown Completed [facility] Pneumococcal 7 Conjugate, PCV7 (Prevnar7) Unknown Completed [facility] Polio (IPV/OPV) Unknown Completed [facility] Varicella (varivax)(chicken pox) Unknown Completed [facility] HEPATITIS A Unknown Completed [facility] Influenza Virus Vaccine Unknown Completed [facility] HEPATITIS A Unknown Completed [facility] DTAP Unknown Completed [facility] Proquad (MMR/VARICELLA) Unknown Completed [facility] Polio (IPV/OPV) Unknown Completed [facility] Influenza Virus Vaccine Unknown Completed [facility] Influenza Virus Vaccine Unknown Completed [facility] Influenza Virus Vaccine Unknown Completed [facility] Influenza Virus Vaccine Unknown Completed [facility] Influenza Virus Vaccine Unknown Completed [facility] Influenza Virus Vaccine Unknown Completed [facility] Influenza Virus Vaccine (3+ yrs) Unknown Completed [facility] Meningococcal Polysaccharide (groups A, C, Y and W-135) conjugate vaccine (MCV4P) Unknown Completed [facility] TDAP Unknown Completed [facility] Influenza Virus Vaccine (3+ yrs) Unknown Completed [facility] Influenza Virus Vaccine Quad IM 3+ YRS Unknown Completed [facility] HPV9 Unknown Completed [facility] HPV Unknown Completed [facility] HPV9 Unknown Completed [facility] Influenza Virus Vaccine Quad IM 3+ YRS Unknown Completed [facility] Meningococcal Polysaccharide (groups A, C, Y and W-135) conjugate vaccine (MCV4P) Unknown Completed [facility] Influenza Virus Vaccine Quad .5 mL IM 6+ MO (FLUZONE/FLULAVAL/FL UARIX) Unknown Completed [facility] Meningococcal B, OMV Unknown Completed [facility] Hep B, Adol or Pedi Dosage Unknown Completed [facility] Meningococcal B, OMV Unknown Completed [facility] Influenza Virus Vaccine Quad .5 mL IM 6+ MO (FLUZONE/FLULAVAL/FL UARIX) Unknown Completed [facility] SARS-COV-2 COVID-19 PFIZER VACCINE Unknown Completed [facility] SARS-COV-2 COVID-19 PFIZER VACCINE Unknown Completed [facility] SARS-COV-2 COVID-19 PFIZER VACCINE Unknown Completed [facility] SARS-COV-2 COVID-19 MIKE-SUCROSE VACCINE 12 YRS+, BIVALENT 0.3ML, IM, (PFIZER ARITA TOP) Unknown Completed [facility] DTAP Unknown Completed [facility] DTAP Unknown Completed [facility] DTAP Unknown Completed [facility] HIB 4 Dose Schedule Unknown Completed [facility] HIB 4 Dose Schedule Unknown Completed [facility] HIB 4 Dose Schedule Unknown Completed [facility] Hep B, Adol or Pedi Dosage Unknown Completed [facility] Hep B, Adol or Pedi Dosage Unknown Completed [facility] Pneumococcal 7 Conjugate, PCV7 (Prevnar7) Unknown Completed [facility] Pneumococcal 7 Conjugate, PCV7 (Prevnar7) Unknown Completed [facility] Polio (IPV/OPV) Unknown Completed [facility] Polio (IPV/OPV) Unknown Completed [facility] HIB 4 Dose Schedule Unknown Completed [facility] MMR Unknown Completed [facility] Pneumococcal 7 Conjugate, PCV7 (Prevnar7) Unknown Completed [facility] Polio (IPV/OPV) Unknown Completed [facility] Varicella (varivax)(chicken pox) Unknown Completed [facility] HEPATITIS A Unknown Completed [facility] Influenza Virus Vaccine Unknown Completed [facility] HEPATITIS A Unknown Completed [facility] DTAP Unknown Completed [facility] Proquad (MMR/VARICELLA) Unknown Completed [facility] Polio (IPV/OPV) Unknown Completed [facility] Influenza Virus Vaccine Unknown Completed [facility] Influenza Virus Vaccine Unknown Completed [facility] Influenza Virus Vaccine Unknown Completed [facility] Influenza Virus Vaccine Unknown Completed [facility] Influenza Virus Vaccine Unknown Completed [facility] Influenza Virus Vaccine Unknown Completed [facility] Influenza Virus Vaccine (3+ yrs) Unknown Completed [facility] Meningococcal Polysaccharide (groups A, C, Y and W-135) conjugate vaccine (MCV4P) Unknown Completed [facility] TDAP Unknown Completed [facility] Influenza Virus Vaccine (3+ yrs) Unknown Completed [facility] Influenza Virus Vaccine Quad IM 3+ YRS Unknown Completed [facility] HPV9 Unknown Completed [facility] HPV Unknown Completed [facility] HPV9 Unknown Completed [facility] Influenza Virus Vaccine Quad IM 3+ YRS Unknown Completed [facility] Meningococcal Polysaccharide (groups A, C, Y and W-135) conjugate vaccine (MCV4P) Unknown Completed [facility] Influenza Virus Vaccine Quad .5 mL IM 6+ MO (FLUZONE/FLULAVAL/FL UARIX) Unknown Completed [facility] Meningococcal B, OMV Unknown Completed [facility] Hep B, Adol or Pedi Dosage Unknown Completed [facility] Meningococcal B, OMV Unknown Completed [facility] Influenza Virus Vaccine Quad .5 mL IM 6+ MO (FLUZONE/FLULAVAL/FL UARIX) Unknown Completed [facility] SARS-COV-2 COVID-19 PFIZER VACCINE Unknown Completed [facility] SARS-COV-2 COVID-19 PFIZER VACCINE Unknown Completed [facility] SARS-COV-2 COVID-19 PFIZER VACCINE Unknown Completed [facility] SARS-COV-2 COVID-19 MIKE-SUCROSE VACCINE 12 YRS+, BIVALENT 0.3ML, IM, (PFIZER ARITA TOP) Unknown Completed [facility] HEPATITIS A Unknown Completed [facility] Influenza Virus Vaccine Unknown Completed [facility] HEPATITIS A Unknown Completed [facility] DTAP Unknown Completed [facility] Proquad (MMR/VARICELLA) Unknown Completed [facility] Polio (IPV/OPV) Unknown Completed [facility] Influenza Virus Vaccine Unknown Completed [facility] Influenza Virus Vaccine Unknown Completed [facility] Influenza Virus Vaccine Unknown Completed [facility] Influenza Virus Vaccine Unknown Completed [facility] Influenza Virus Vaccine Unknown Completed [facility] Influenza Virus Vaccine Unknown Completed [facility] Influenza Virus Vaccine (3+ yrs) Unknown Completed [facility] Meningococcal Polysaccharide (groups A, C, Y and W-135) conjugate vaccine (MCV4P) Unknown Completed [facility] TDAP Unknown Completed [facility] Influenza Virus Vaccine (3+ yrs) Unknown Completed [facility] Influenza Virus Vaccine Quad IM 3+ YRS Unknown Completed [facility] HPV9 Unknown Completed [facility] HPV Unknown Completed [facility] HPV9 Unknown Completed [facility] Influenza Virus Vaccine Quad IM 3+ YRS Unknown Completed [facility] Meningococcal Polysaccharide (groups A, C, Y and W-135) conjugate vaccine (MCV4P) Unknown Completed [facility] Influenza Virus Vaccine Quad .5 mL IM 6+ MO (FLUZONE/FLULAVAL/FL UARIX) Unknown Completed [facility] Meningococcal B, OMV Unknown Completed [facility] Hep B, Adol or Pedi Dosage Unknown Completed [facility] Meningococcal B, OMV Unknown Completed [facility] Influenza Virus Vaccine Quad .5 mL IM 6+ MO (FLUZONE/FLULAVAL/FL UARIX) Unknown Completed [facility] SARS-COV-2 COVID-19 PFIZER VACCINE Unknown Completed [facility] SARS-COV-2 COVID-19 PFIZER VACCINE Unknown Completed [facility] SARS-COV-2 COVID-19 PFIZER VACCINE Unknown Completed [facility] SARS-COV-2 COVID-19 MIKE-SUCROSE VACCINE 12 YRS+, BIVALENT 0.3ML, IM, (PFIZER ARITA TOP) Unknown Completed [facility] DTAP Unknown Completed [facility] DTAP Unknown Completed [facility] DTAP Unknown Completed [facility] HIB 4 Dose Schedule Unknown Completed [facility] HIB 4 Dose Schedule Unknown Completed [facility] HIB 4 Dose Schedule Unknown Completed [facility] Hep B, Adol or Pedi Dosage Unknown Completed [facility] Hep B, Adol or Pedi Dosage Unknown Completed [facility] Pneumococcal 7 Conjugate, PCV7 (Prevnar7) Unknown Completed [facility] Pneumococcal 7 Conjugate, PCV7 (Prevnar7) Unknown Completed [facility] Polio (IPV/OPV) Unknown Completed [facility] Polio (IPV/OPV) Unknown Completed [facility] HIB 4 Dose Schedule Unknown Completed [facility] MMR Unknown Completed [facility] Pneumococcal 7 Conjugate, PCV7 (Prevnar7) Unknown Completed [facility] Polio (IPV/OPV) Unknown Completed [facility] Varicella (varivax)(chicken pox) Unknown Completed [facility] HEPATITIS A Unknown Completed [facility] Influenza Virus Vaccine Unknown Completed [facility] HEPATITIS A Unknown Completed [facility] DTAP Unknown Completed [facility] Proquad (MMR/VARICELLA) Unknown Completed [facility] Polio (IPV/OPV) Unknown Completed [facility] Influenza Virus Vaccine Unknown Completed [facility] Influenza Virus Vaccine Unknown Completed [facility] Influenza Virus Vaccine Unknown Completed [facility] Influenza Virus Vaccine Unknown Completed [facility] Influenza Virus Vaccine Unknown Completed [facility] Influenza Virus Vaccine Unknown Completed [facility] Influenza Virus Vaccine (3+ yrs) Unknown Completed [facility] Meningococcal Polysaccharide (groups A, C, Y and W-135) conjugate vaccine (MCV4P) Unknown Completed [facility] TDAP Unknown Completed [facility] Influenza Virus Vaccine (3+ yrs) Unknown Completed [facility] Influenza Virus Vaccine Quad IM 3+ YRS Unknown Completed [facility] HPV9 Unknown Completed [facility] HPV Unknown Completed [facility] HPV9 Unknown Completed [facility] Influenza Virus Vaccine Quad IM 3+ YRS Unknown Completed [facility] Meningococcal Polysaccharide (groups A, C, Y and W-135) conjugate vaccine (MCV4P) Unknown Completed [facility] Influenza Virus Vaccine Quad .5 mL IM 6+ MO (FLUZONE/FLULAVAL/FL UARIX) Unknown Completed [facility] Meningococcal B, OMV Unknown Completed [facility] Hep B, Adol or Pedi Dosage Unknown Completed [facility] Meningococcal B, OMV Unknown Completed [facility] Influenza Virus Vaccine Quad .5 mL IM 6+ MO (FLUZONE/FLULAVAL/FL UARIX) Unknown Completed [facility] SARS-COV-2 COVID-19 PFIZER VACCINE Unknown Completed [facility] SARS-COV-2 COVID-19 PFIZER VACCINE Unknown Completed [facility] SARS-COV-2 COVID-19 PFIZER VACCINE Unknown Completed [facility] SARS-COV-2 COVID-19 MIKE-SUCROSE VACCINE 12 YRS+, BIVALENT 0.3ML, IM, (PFIZER ARITA TOP) Unknown Completed [facility] DTAP Unknown Completed [facility] DTAP Unknown Completed [facility] DTAP Unknown Completed [facility] HIB 4 Dose Schedule Unknown Completed [facility] HIB 4 Dose Schedule Unknown Completed [facility] HIB 4 Dose Schedule Unknown Completed [facility] Hep B, Adol or Pedi Dosage Unknown Completed [facility] Hep B, Adol or Pedi Dosage Unknown Completed [facility] Pneumococcal 7 Conjugate, PCV7 (Prevnar7) Unknown Completed [facility] Pneumococcal 7 Conjugate, PCV7 (Prevnar7) Unknown Completed [facility] Polio (IPV/OPV) Unknown Completed [facility] Polio (IPV/OPV) Unknown Completed [facility] HIB 4 Dose Schedule Unknown Completed [facility] MMR Unknown Completed [facility] Pneumococcal 7 Conjugate, PCV7 (Prevnar7) Unknown Completed [facility] Polio (IPV/OPV) Unknown Completed [facility] Varicella (varivax)(chicken pox) Unknown Completed [facility] HEPATITIS A Unknown Completed [facility] Influenza Virus Vaccine Unknown Completed [facility] HEPATITIS A Unknown Completed [facility] DTAP Unknown Completed [facility] Proquad (MMR/VARICELLA) Unknown Completed [facility] Polio (IPV/OPV) Unknown Completed [facility] Influenza Virus Vaccine Unknown Completed [facility] Influenza Virus Vaccine Unknown Completed [facility] Influenza Virus Vaccine Unknown Completed [facility] Influenza Virus Vaccine Unknown Completed [facility] Influenza Virus Vaccine Unknown Completed [facility] Influenza Virus Vaccine Unknown Completed [facility] Influenza Virus Vaccine (3+ yrs) Unknown Completed [facility] Meningococcal Polysaccharide (groups A, C, Y and W-135) conjugate vaccine (MCV4P) Unknown Completed [facility] TDAP Unknown Completed [facility] Influenza Virus Vaccine (3+ yrs) Unknown Completed [facility] Influenza Virus Vaccine Quad IM 3+ YRS Unknown Completed [facility] HPV9 Unknown Completed [facility] HPV Unknown Completed [facility] HPV9 Unknown Completed [facility] Influenza Virus Vaccine Quad IM 3+ YRS Unknown Completed [facility] Meningococcal Polysaccharide (groups A, C, Y and W-135) conjugate vaccine (MCV4P) Unknown Completed [facility] Influenza Virus Vaccine Quad .5 mL IM 6+ MO (FLUZONE/FLULAVAL/FL UARIX) Unknown Completed [facility] Meningococcal B, OMV Unknown Completed [facility] Hep B, Adol or Pedi Dosage Unknown Completed [facility] Meningococcal B, OMV Unknown Completed [facility] Influenza Virus Vaccine Quad .5 mL IM 6+ MO (FLUZONE/FLULAVAL/FL UARIX) Unknown Completed [facility] SARS-COV-2 COVID-19 PFIZER VACCINE Unknown Completed [facility] SARS-COV-2 COVID-19 PFIZER VACCINE Unknown Completed [facility] SARS-COV-2 COVID-19 PFIZER VACCINE Unknown Completed [facility] SARS-COV-2 COVID-19 MIKE-SUCROSE VACCINE 12 YRS+, BIVALENT 0.3ML, IM, (PFIZER ARITA TOP) Unknown Completed [facility] HEPATITIS A Unknown Completed [facility] Influenza Virus Vaccine Unknown Completed [facility] HEPATITIS A Unknown Completed [facility] DTAP Unknown Completed [facility] Proquad (MMR/VARICELLA) Unknown Completed [facility] Polio (IPV/OPV) Unknown Completed [facility] Influenza Virus Vaccine Unknown Completed [facility] Influenza Virus Vaccine Unknown Completed [facility] Influenza Virus Vaccine Unknown Completed [facility] Influenza Virus Vaccine Unknown Completed [facility] Influenza Virus Vaccine Unknown Completed [facility] Influenza Virus Vaccine Unknown Completed [facility] Influenza Virus Vaccine (3+ yrs) Unknown Completed [facility] Meningococcal Polysaccharide (groups A, C, Y and W-135) conjugate vaccine (MCV4P) Unknown Completed [facility] TDAP Unknown Completed [facility] Influenza Virus Vaccine (3+ yrs) Unknown Completed [facility] Influenza Virus Vaccine Quad IM 3+ YRS Unknown Completed [facility] HPV9 Unknown Completed [facility] HPV Unknown Completed [facility] HPV9 Unknown Completed [facility] Influenza Virus Vaccine Quad IM 3+ YRS Unknown Completed [facility] Meningococcal Polysaccharide (groups A, C, Y and W-135) conjugate vaccine (MCV4P) Unknown Completed [facility] Influenza Virus Vaccine Quad .5 mL IM 6+ MO (FLUZONE/FLULAVAL/FL UARIX) Unknown Completed [facility] Meningococcal B, OMV Unknown Completed [facility] Hep B, Adol or Pedi Dosage Unknown Completed [facility] Meningococcal B, OMV Unknown Completed [facility] Influenza Virus Vaccine Quad .5 mL IM 6+ MO (FLUZONE/FLULAVAL/FL UARIX) Unknown Completed [facility] SARS-COV-2 COVID-19 PFIZER VACCINE Unknown Completed [facility] SARS-COV-2 COVID-19 PFIZER VACCINE Unknown Completed [facility] SARS-COV-2 COVID-19 PFIZER VACCINE Unknown Completed [facility] SARS-COV-2 COVID-19 MIKE-SUCROSE VACCINE 12 YRS+, BIVALENT 0.3ML, IM, (PFIZER ARITA TOP) Unknown Completed [facility] HEPATITIS A Unknown Completed [facility] Influenza Virus Vaccine Unknown Completed [facility] HEPATITIS A Unknown Completed [facility] DTAP Unknown Completed [facility] Proquad (MMR/VARICELLA) Unknown Completed [facility] Polio (IPV/OPV) Unknown Completed [facility] Influenza Virus Vaccine Unknown Completed [facility] Influenza Virus Vaccine Unknown Completed [facility] Influenza Virus Vaccine Unknown Completed [facility] Influenza Virus Vaccine Unknown Completed [facility] Influenza Virus Vaccine Unknown Completed [facility] Influenza Virus Vaccine Unknown Completed [facility] Influenza Virus Vaccine (3+ yrs) Unknown Completed [facility] Meningococcal Polysaccharide (groups A, C, Y and W-135) conjugate vaccine (MCV4P) Unknown Completed [facility] TDAP Unknown Completed [facility] Influenza Virus Vaccine (3+ yrs) Unknown Completed [facility] Influenza Virus Vaccine Quad IM 3+ YRS Unknown Completed [facility] HPV9 Unknown Completed [facility] HPV Unknown Completed [facility] HPV9 Unknown Completed [facility] Influenza Virus Vaccine Quad IM 3+ YRS Unknown Completed [facility] Meningococcal Polysaccharide (groups A, C, Y and W-135) conjugate vaccine (MCV4P) Unknown Completed [facility] Influenza Virus Vaccine Quad .5 mL IM 6+ MO (FLUZONE/FLULAVAL/FL UARIX) Unknown Completed [facility] Meningococcal B, OMV Unknown Completed [facility] Hep B, Adol or Pedi Dosage Unknown Completed [facility] Meningococcal B, OMV Unknown Completed [facility] Influenza Virus Vaccine Quad .5 mL IM 6+ MO (FLUZONE/FLULAVAL/FL UARIX) Unknown Completed [facility] SARS-COV-2 COVID-19 PFIZER VACCINE Unknown Completed [facility] SARS-COV-2 COVID-19 PFIZER VACCINE Unknown Completed [facility] SARS-COV-2 COVID-19 PFIZER VACCINE Unknown Completed [facility] SARS-COV-2 COVID-19 MIKE-SUCROSE VACCINE 12 YRS+, BIVALENT 0.3ML, IM, (PFIZER ARITA TOP) Unknown Completed [facility] HEPATITIS A Unknown Completed [facility] Influenza Virus Vaccine Unknown Completed [facility] HEPATITIS A Unknown Completed [facility] DTAP Unknown Completed [facility] Proquad (MMR/VARICELLA) Unknown Completed [facility] Polio (IPV/OPV) Unknown Completed [facility] Influenza Virus Vaccine Unknown Completed [facility] Influenza Virus Vaccine Unknown Completed [facility] Influenza Virus Vaccine Unknown Completed [facility] Influenza Virus Vaccine Unknown Completed [facility] Influenza Virus Vaccine Unknown Completed [facility] Influenza Virus Vaccine Unknown Completed [facility] Influenza Virus Vaccine (3+ yrs) Unknown Completed [facility] Meningococcal Polysaccharide (groups A, C, Y and W-135) conjugate vaccine (MCV4P) Unknown Completed [facility] TDAP Unknown Completed [facility] Influenza Virus Vaccine (3+ yrs) Unknown Completed [facility] Influenza Virus Vaccine Quad IM 3+ YRS Unknown Completed [facility] HPV9 Unknown Completed [facility] HPV Unknown Completed [facility] HPV9 Unknown Completed [facility] Influenza Virus Vaccine Quad IM 3+ YRS Unknown Completed [facility] Meningococcal Polysaccharide (groups A, C, Y and W-135) conjugate vaccine (MCV4P) Unknown Completed [facility] Influenza Virus Vaccine Quad .5 mL IM 6+ MO (FLUZONE/FLULAVAL/FL UARIX) Unknown Completed [facility] Meningococcal B, OMV Unknown Completed [facility] Hep B, Adol or Pedi Dosage Unknown Completed [facility] Meningococcal B, OMV Unknown Completed [facility] Influenza Virus Vaccine Quad .5 mL IM 6+ MO (FLUZONE/FLULAVAL/FL UARIX) Unknown Completed [facility] SARS-COV-2 COVID-19 PFIZER VACCINE Unknown Completed [facility] SARS-COV-2 COVID-19 PFIZER VACCINE Unknown Completed [facility] SARS-COV-2 COVID-19 PFIZER VACCINE Unknown Completed [facility] SARS-COV-2 COVID-19 MIKE-SUCROSE VACCINE 12 YRS+, BIVALENT 0.3ML, IM, (PFIZER ARITA TOP) Unknown Completed [facility] HEPATITIS A Unknown Completed [facility] Influenza Virus Vaccine Unknown Completed [facility] HEPATITIS A Unknown Completed [facility] DTAP Unknown Completed [facility] Proquad (MMR/VARICELLA) Unknown Completed [facility] Polio (IPV/OPV) Unknown Completed [facility] Influenza Virus Vaccine Unknown Completed [facility] Influenza Virus Vaccine Unknown Completed [facility] Influenza Virus Vaccine Unknown Completed [facility] Influenza Virus Vaccine Unknown Completed [facility] Influenza Virus Vaccine Unknown Completed [facility] Influenza Virus Vaccine Unknown Completed [facility] Influenza Virus Vaccine (3+ yrs) Unknown Completed [facility] Meningococcal Polysaccharide (groups A, C, Y and W-135) conjugate vaccine (MCV4P) Unknown Completed [facility] TDAP Unknown Completed [facility] Influenza Virus Vaccine (3+ yrs) Unknown Completed [facility] Influenza Virus Vaccine Quad IM 3+ YRS Unknown Completed [facility] HPV9 Unknown Completed [facility] HPV Unknown Completed [facility] HPV9 Unknown Completed [facility] Influenza Virus Vaccine Quad IM 3+ YRS Unknown Completed [facility] Meningococcal Polysaccharide (groups A, C, Y and W-135) conjugate vaccine (MCV4P) Unknown Completed [facility] Influenza Virus Vaccine Quad .5 mL IM 6+ MO (FLUZONE/FLULAVAL/FL UARIX) Unknown Completed [facility] Meningococcal B, OMV Unknown Completed [facility] Hep B, Adol or Pedi Dosage Unknown Completed [facility] Meningococcal B, OMV Unknown Completed [facility] Influenza Virus Vaccine Quad .5 mL IM 6+ MO (FLUZONE/FLULAVAL/FL UARIX) Unknown Completed [facility] SARS-COV-2 COVID-19 PFIZER VACCINE Unknown Completed [facility] SARS-COV-2 COVID-19 PFIZER VACCINE Unknown Completed [facility] SARS-COV-2 COVID-19 PFIZER VACCINE Unknown Completed [facility] SARS-COV-2 COVID-19 MIKE-SUCROSE VACCINE 12 YRS+, BIVALENT 0.3ML, IM, (PFIZER ARITA TOP) Unknown Completed [facility] HEPATITIS A Unknown Com[facility] [facility] Influenza Virus Vaccine Unknown Completed [facility] HEPATITIS A Unknown Completed [facility] DTAP Unknown Completed [facility] Proquad (MMR/VARICELLA) Unknown Completed [facility] Polio (IPV/OPV) Unknown Completed [facility] Influenza Virus Vaccine Unknown Completed [facility] Influenza Virus Vaccine Unknown Completed [facility] Influenza Virus Vaccine Unknown Completed [facility] Influenza Virus Vaccine Unknown Completed [facility] Influenza Virus Vaccine Unknown Completed [facility] Influenza Virus Vaccine Unknown Completed [facility] Influenza Virus Vaccine (3+ yrs) Unknown Completed [facility] Meningococcal Polysaccharide (groups A, C, Y and W-135) conjugate vaccine (MCV4P) Unknown Completed [facility] TDAP Unknown Completed [facility] Influenza Virus Vaccine (3+ yrs) Unknown Completed [facility] Influenza Virus Vaccine Quad IM 3+ YRS Unknown Completed [facility] HPV9 Unknown Completed [facility] HPV Unknown Completed [facility] HPV9 Unknown Completed [facility] Influenza Virus Vaccine Quad IM 3+ YRS Unknown Completed [facility] Meningococcal Polysaccharide (groups A, C, Y and W-135) conjugate vaccine (MCV4P) Unknown Completed [facility] Influenza Virus Vaccine Quad .5 mL IM 6+ MO (FLUZONE/FLULAVAL/FL UARIX) Unknown Completed [facility] Meningococcal B, OMV Unknown Completed [facility] Hep B, Adol or Pedi Dosage Unknown Completed [facility] Meningococcal B, OMV Unknown Completed [facility] Influenza Virus Vaccine Quad .5 mL IM 6+ MO (FLUZONE/FLULAVAL/FL UARIX) Unknown Completed [facility] SARS-COV-2 COVID-19 PFIZER VACCINE Unknown Completed [facility] SARS-COV-2 COVID-19 PFIZER VACCINE Unknown Completed [facility] SARS-COV-2 COVID-19 PFIZER VACCINE Unknown Completed [facility] SARS-COV-2 COVID-19 MIKE-SUCROSE VACCINE 12 YRS+, BIVALENT 0.3ML, IM, (PFIZER ARITA TOP) Unknown Completed [facility] HEPATITIS A Unknown Completed [facility] Influenza Virus Vaccine Unknown Completed [facility] HEPATITIS A Unknown Completed [facility] DTAP Unknown Completed [facility] Proquad (MMR/VARICELLA) Unknown Completed [facility] Polio (IPV/OPV) Unknown Completed [facility] Influenza Virus Vaccine Unknown Completed [facility] Influenza Virus Vaccine Unknown Completed [facility] Influenza Virus Vaccine Unknown Completed [facility] Influenza Virus Vaccine Unknown Completed [facility] Influenza Virus Vaccine Unknown Completed [facility] Influenza Virus Vaccine Unknown Completed [facility] Influenza Virus Vaccine (3+ yrs) Unknown Completed [facility] Meningococcal Polysaccharide (groups A, C, Y and W-135) conjugate vaccine (MCV4P) Unknown Completed [facility] TDAP Unknown Completed [facility] Influenza Virus Vaccine (3+ yrs) Unknown Completed [facility] Influenza Virus Vaccine Quad IM 3+ YRS Unknown Completed [facility] HPV9 Unknown Completed [facility] HPV Unknown Completed [facility] HPV9 Unknown Completed [facility] Influenza Virus Vaccine Quad IM 3+ YRS Unknown Completed [facility] Meningococcal Polysaccharide (groups A, C, Y and W-135) conjugate vaccine (MCV4P) Unknown Completed [facility] Influenza Virus Vaccine Quad .5 mL IM 6+ MO (FLUZONE/FLULAVAL/FL UARIX) Unknown Completed [facility] Meningococcal B, OMV Unknown Completed [facility] Hep B, Adol or Pedi Dosage Unknown Completed [facility] Meningococcal B, OMV Unknown Completed [facility] Influenza Virus Vaccine Quad .5 mL IM 6+ MO (FLUZONE/FLULAVAL/FL UARIX) Unknown Completed [facility] SARS-COV-2 COVID-19 PFIZER VACCINE Unknown Completed [facility] SARS-COV-2 COVID-19 PFIZER VACCINE Unknown Completed [facility] SARS-COV-2 COVID-19 PFIZER VACCINE Unknown Completed [facility] SARS-COV-2 COVID-19 MIKE-SUCROSE VACCINE 12 YRS+, BIVALENT 0.3ML, IM, (PFIZER ARITA TOP) Unknown Completed [facility] HEPATITIS A Unknown Completed [facility] Influenza Virus Vaccine Unknown Completed [facility] HEPATITIS A Unknown Completed [facility] DTAP Unknown Completed [facility] Proquad (MMR/VARICELLA) Unknown Completed [facility] Polio (IPV/OPV) Unknown Completed [facility] Influenza Virus Vaccine Unknown Completed [facility] Influenza Virus Vaccine Unknown Completed [facility] Influenza Virus Vaccine Unknown Completed [facility] Influenza Virus Vaccine Unknown Completed [facility] Influenza Virus Vaccine Unknown Completed [facility] Influenza Virus Vaccine Unknown Completed [facility] Influenza Virus Vaccine (3+ yrs) Unknown Completed [facility] Meningococcal Polysaccharide (groups A, C, Y and W-135) conjugate vaccine (MCV4P) Unknown Completed [facility] TDAP Unknown Completed [facility] Influenza Virus Vaccine (3+ yrs) Unknown Completed [facility] Influenza Virus Vaccine Quad IM 3+ YRS Unknown Completed [facility] HPV9 Unknown Completed [facility] HPV Unknown Completed [facility] HPV9 Unknown Completed [facility] Influenza Virus Vaccine Quad IM 3+ YRS Unknown Completed [facility] Meningococcal Polysaccharide (groups A, C, Y and W-135) conjugate vaccine (MCV4P) Unknown Completed [facility] Influenza Virus Vaccine Quad .5 mL IM 6+ MO (FLUZONE/FLULAVAL/FL UARIX) Unknown Completed [facility] Meningococcal B, OMV Unknown Completed [facility] Hep B, Adol or Pedi Dosage Unknown Completed [facility] Meningococcal B, OMV Unknown Completed [facility] Influenza Virus Vaccine Quad .5 mL IM 6+ MO (FLUZONE/FLULAVAL/FL UARIX) Unknown Completed [facility] SARS-COV-2 COVID-19 PFIZER VACCINE Unknown Completed [facility] SARS-COV-2 COVID-19 PFIZER VACCINE Unknown Completed [facility] SARS-COV-2 COVID-19 PFIZER VACCINE Unknown Completed [facility] SARS-COV-2 COVID-19 MIKE-SUCROSE VACCINE 12 YRS+, BIVALENT 0.3ML, IM, (PFIZER ARITA TOP) Unknown Completed [facility] HEPATITIS A Unknown Completed [facility] Influenza Virus Vaccine Unknown Completed [facility] HEPATITIS A Unknown Completed [facility] DTAP Unknown Completed [facility] Proquad (MMR/VARICELLA) Unknown Completed [facility] Polio (IPV/OPV) Unknown Completed [facility] Influenza Virus Vaccine Unknown Completed [facility] Influenza Virus Vaccine Unknown Completed [facility] Influenza Virus Vaccine Unknown Completed [facility] Influenza Virus Vaccine Unknown Completed [facility] Influenza Virus Vaccine Unknown Completed [facility] Influenza Virus Vaccine Unknown Completed [facility] Influenza Virus Vaccine (3+ yrs) Unknown Completed [facility] Meningococcal Polysaccharide (groups A, C, Y and W-135) conjugate vaccine (MCV4P) Unknown Completed [facility] TDAP Unknown Completed [facility] Influenza Virus Vaccine (3+ yrs) Unknown Completed [facility] Influenza Virus Vaccine Quad IM 3+ YRS Unknown Completed [facility] HPV9 Unknown Completed [facility] HPV Unknown Completed [facility] HPV9 Unknown Completed [facility] Influenza Virus Vaccine Quad IM 3+ YRS Unknown Completed [facility] Meningococcal Polysaccharide (groups A, C, Y and W-135) conjugate vaccine (MCV4P) Unknown Completed [facility] Influenza Virus Vaccine Quad .5 mL IM 6+ MO (FLUZONE/FLULAVAL/FL UARIX) Unknown Completed [facility] Meningococcal B, OMV Unknown Completed [facility] Hep B, Adol or Pedi Dosage Unknown Completed [facility] Meningococcal B, OMV Unknown Completed [facility] Influenza Virus Vaccine Quad .5 mL IM 6+ MO (FLUZONE/FLULAVAL/FL UARIX) Unknown Completed [facility] SARS-COV-2 COVID-19 PFIZER VACCINE Unknown Completed [facility] SARS-COV-2 COVID-19 PFIZER VACCINE Unknown Completed [facility] SARS-COV-2 COVID-19 PFIZER VACCINE Unknown Completed [facility] SARS-COV-2 COVID-19 MIKE-SUCROSE VACCINE 12 YRS+, BIVALENT 0.3ML, IM, (PFIZER ARITA TOP) Unknown Completed [facility] HEPATITIS A Unknown Completed [facility] Influenza Virus Vaccine Unknown Completed [facility] HEPATITIS A Unknown Completed [facility] DTAP Unknown Completed [facility] Proquad (MMR/VARICELLA) Unknown Completed [facility] Polio (IPV/OPV) Unknown Completed [facility] Influenza Virus Vaccine Unknown Completed [facility] Influenza Virus Vaccine Unknown Completed [facility] Influenza Virus Vaccine Unknown Completed [facility] Influenza Virus Vaccine Unknown Completed [facility] Influenza Virus Vaccine Unknown Completed [facility] Influenza Virus Vaccine Unknown Completed [facility] Influenza Virus Vaccine (3+ yrs) Unknown Completed [facility] Meningococcal Polysaccharide (groups A, C, Y and W-135) conjugate vaccine (MCV4P) Unknown Completed [facility] TDAP Unknown Completed [facility] Influenza Virus Vaccine (3+ yrs) Unknown Completed [facility] Influenza Virus Vaccine Quad IM 3+ YRS Unknown Completed [facility] HPV9 Unknown Completed [facility] HPV Unknown Completed [facility] HPV9 Unknown Completed [facility] Influenza Virus Vaccine Quad IM 3+ YRS Unknown Completed [facility] Meningococcal Polysaccharide (groups A, C, Y and W-135) conjugate vaccine (MCV4P) Unknown Completed [facility] Influenza Virus Vaccine Quad .5 mL IM 6+ MO (FLUZONE/FLULAVAL/FL UARIX) Unknown Completed [facility] Meningococcal B, OMV Unknown Completed [facility] Hep B, Adol or Pedi Dosage Unknown Completed [facility] Meningococcal B, OMV Unknown Completed [facility] Influenza Virus Vaccine Quad .5 mL IM 6+ MO (FLUZONE/FLULAVAL/FL UARIX) Unknown Completed [facility] SARS-COV-2 COVID-19 PFIZER VACCINE Unknown Completed [facility] SARS-COV-2 COVID-19 PFIZER VACCINE Unknown Completed [facility] SARS-COV-2 COVID-19 PFIZER VACCINE Unknown Completed [facility] SARS-COV-2 COVID-19 MIKE-SUCROSE VACCINE 12 YRS+, BIVALENT 0.3ML, IM, (PFIZER ARITA TOP) Unknown Completed [facility] DTAP Unknown Completed [facility] DTAP Unknown Completed [facility] DTAP Unknown Completed [facility] HIB 4 Dose Schedule Unknown Completed [facility] HIB 4 Dose Schedule Unknown Completed [facility] HIB 4 Dose Schedule Unknown Completed [facility] Hep B, Adol or Pedi Dosage Unknown Completed [facility] Hep B, Adol or Pedi Dosage Unknown Completed [facility] Pneumococcal 7 Conjugate, PCV7 (Prevnar7) Unknown Completed [facility] Pneumococcal 7 Conjugate, PCV7 (Prevnar7) Unknown Completed [facility] Polio (IPV/OPV) Unknown Completed [facility] Polio (IPV/OPV) Unknown Completed [facility] HIB 4 Dose Schedule Unknown Completed [facility] MMR Unknown Completed [facility] Pneumococcal 7 Conjugate, PCV7 (Prevnar7) Unknown Completed [facility] Polio (IPV/OPV) Unknown Completed [facility] Varicella (varivax)(chicken pox) Unknown Completed [facility] HEPATITIS A Unknown Completed [facility] Influenza Virus Vaccine Unknown Completed [facility] HEPATITIS A Unknown Completed [facility] DTAP Unknown Completed [facility] Proquad (MMR/VARICELLA) Unknown Completed [facility] Polio (IPV/OPV) Unknown Completed [facility] Influenza Virus Vaccine Unknown Completed [facility] Influenza Virus Vaccine Unknown Completed [facility] Influenza Virus Vaccine Unknown Completed [facility] Influenza Virus Vaccine Unknown Completed [facility] Influenza Virus Vaccine Unknown Completed [facility] Influenza Virus Vaccine Unknown Completed [facility] Influenza Virus Vaccine (3+ yrs) Unknown Completed [facility] Meningococcal Polysaccharide (groups A, C, Y and W-135) conjugate vaccine (MCV4P) Unknown Completed [facility] TDAP Unknown Completed [facility] Influenza Virus Vaccine (3+ yrs) Unknown Completed [facility] Influenza Virus Vaccine Quad IM 3+ YRS Unknown Completed [facility] HPV9 Unknown Completed [facility] HPV Unknown Completed [facility] HPV9 Unknown Completed [facility] Influenza Virus Vaccine Quad IM 3+ YRS Unknown Completed [facility] Meningococcal Polysaccharide (groups A, C, Y and W-135) conjugate vaccine (MCV4P) Unknown Completed [facility] Influenza Virus Vaccine Quad .5 mL IM 6+ MO (FLUZONE/FLULAVAL/FL UARIX) Unknown Completed [facility] Meningococcal B, OMV Unknown Completed [facility] Hep B, Adol or Pedi Dosage Unknown Completed [facility] Meningococcal B, OMV Unknown Completed [facility] Influenza Virus Vaccine Quad .5 mL IM 6+ MO (FLUZONE/FLULAVAL/FL UARIX) Unknown Completed [facility] SARS-COV-2 COVID-19 PFIZER VACCINE Unknown Completed [facility] SARS-COV-2 COVID-19 PFIZER VACCINE Unknown Completed [facility] SARS-COV-2 COVID-19 PFIZER VACCINE Unknown Completed [facility] SARS-COV-2 COVID-19 MIKE-SUCROSE VACCINE 12 YRS+, BIVALENT 0.3ML, IM, (PFIZER ARITA TOP) Unknown Completed [facility] DTAP Unknown Completed [facility] DTAP Unknown Completed [facility] DTAP Unknown Completed [facility] HIB 4 Dose Schedule Unknown Completed [facility] HIB 4 Dose Schedule Unknown Completed [facility] HIB 4 Dose Schedule Unknown Completed [facility] Hep B, Adol or Pedi Dosage Unknown Completed [facility] Hep B, Adol or Pedi Dosage Unknown Completed [facility] Pneumococcal 7 Conjugate, PCV7 (Prevnar7) Unknown Completed [facility] Pneumococcal 7 Conjugate, PCV7 (Prevnar7) Unknown Completed [facility] Polio (IPV/OPV) Unknown Completed [facility] Polio (IPV/OPV) Unknown Completed [facility] HIB 4 Dose Schedule Unknown Completed [facility] MMR Unknown Completed [facility] Pneumococcal 7 Conjugate, PCV7 (Prevnar7) Unknown Completed [facility] Polio (IPV/OPV) Unknown Completed [facility] Varicella (varivax)(chicken pox) Unknown Completed [facility] HEPATITIS A Unknown Completed [facility] Influenza Virus Vaccine Unknown Completed [facility] HEPATITIS A Unknown Completed [facility] DTAP Unknown Completed [facility] Proquad (MMR/VARICELLA) Unknown Completed [facility] Polio (IPV/OPV) Unknown Completed [facility] Influenza Virus Vaccine Unknown Completed [facility] Influenza Virus Vaccine Unknown Completed [facility] Influenza Virus Vaccine Unknown Completed [facility] Influenza Virus Vaccine Unknown Completed [facility] Influenza Virus Vaccine Unknown Completed [facility] Influenza Virus Vaccine Unknown Completed [facility] Influenza Virus Vaccine (3+ yrs) Unknown Completed [facility] Meningococcal Polysaccharide (groups A, C, Y and W-135) conjugate vaccine (MCV4P) Unknown Completed [facility] TDAP Unknown Completed [facility] Influenza Virus Vaccine (3+ yrs) Unknown Completed [facility] Influenza Virus Vaccine Quad IM 3+ YRS Unknown Completed [facility] HPV9 Unknown Completed [facility] HPV Unknown Completed [facility] HPV9 Unknown Completed [facility] Influenza Virus Vaccine Quad IM 3+ YRS Unknown Completed [facility] Meningococcal Polysaccharide (groups A, C, Y and W-135) conjugate vaccine (MCV4P) Unknown Completed [facility] Influenza Virus Vaccine Quad .5 mL IM 6+ MO (FLUZONE/FLULAVAL/FL UARIX) Unknown Completed [facility] Meningococcal B, OMV Unknown Completed [facility] Hep B, Adol or Pedi Dosage Unknown Completed [facility] Meningococcal B, OMV Unknown Completed [facility] Influenza Virus Vaccine Quad .5 mL IM 6+ MO (FLUZONE/FLULAVAL/FL UARIX) Unknown Completed [facility] SARS-COV-2 COVID-19 PFIZER VACCINE Unknown Completed [facility] SARS-COV-2 COVID-19 PFIZER VACCINE Unknown Completed [facility] SARS-COV-2 COVID-19 PFIZER VACCINE Unknown Completed [facility] SARS-COV-2 COVID-19 MIKE-SUCROSE VACCINE 12 YRS+, BIVALENT 0.3ML, IM, (PFIZER ARITA TOP) Unknown Completed [facility] Vital Signs Vital Name Observation Time Observation Value Comments S ource Systolic blood pressure 2023-07-19 17:00:00 101 mm[Hg] [facility] Diastolic blood pressure 2023-07-19 17:00:00 65 mm[Hg] [facility] Heart rate 2023-07-19 17:00:00 81 /min [facility] Body temperature 2023-07-19 17:00:00 37.11 Linda [facility] Respiratory rate 2023-07-19 17:00:00 16 /min [facility] Body weight 2023-07-19 17:00:00 55.339 kg [facility] BMI 2023-07-19 17:00:00 21.61 kg/m2 [facility] Oxygen saturation in Arterial blood by Pulse oximetry 2023-07-19 17:00:00 99 /min [facility] Systolic blood pressure 2023-07-13 21:40:00 108 mm[Hg] [facility] Diastolic blood pressure 2023-07-13 21:40:00 73 mm[Hg] [facility] Heart rate 2023-07-13 21:40:00 84 /min [facility] Body temperature 2023-07-13 21:40:00 36.33 Linda [facility] Respiratory rate 2023-07-13 21:40:00 16 /min [facility] Body height 2023-07-13 21:40:00 160 cm [facility] Body weight 2023-07-13 21:40:00 55.203 kg [facility] BMI 2023-07-13 21:40:00 21.56 kg/m2 [facility] [facility] Oxygen saturation in Arterial blood by Pulse oximetry 2023-07-13 21:40:00 98 /min [facility] Systolic blood pressure 2023-07-07 17:25:00 100 mm[Hg] [facility] Diastolic blood pressure 2023-07-07 17:25:00 69 mm[Hg] [facility] Heart rate 2023-07-07 17:25:00 98 /min [facility] Body temperature 2023-07-07 17:25:00 36.67 Linda [facility] Respiratory rate 2023-07-07 17:25:00 16 /min [facility] Body height 2023-07-07 17:25:00 157.5 cm [facility] Body weight 2023-07-07 17:25:00 55.248 kg [facility] BMI 2023-07-07 17:25:00 22.28 kg/m2 [facility] Systolic blood pressure 2023-05-23 14:11:00 106 mm[Hg] [facility] Diastolic blood pressure 2023-05-23 14:11:00 73 mm[Hg] [facility] Heart rate 2023-05-23 14:11:00 90 /min [facility] Body temperature 2023-05-23 14:11:00 36.83 Linda [facility] Respiratory rate 2023-05-23 14:11:00 16 /min [facility] Body height 2023-05-23 14:11:00 165.1 cm [facility] Body weight 2023-05-23 14:11:00 58.06 kg [facility] BMI 2023-05-23 14:11:00 21.30 kg/m2 [facility] Systolic blood pressure 2023-04-27 15:01:00 117 mm[Hg] [facility] Diastolic blood pressure 2023-04-27 15:01:00 78 mm[Hg] [facility] Heart rate 2023-04-27 15:01:00 126 /min [facility] Body temperature 2023-04-27 15:01:00 36.83 Linda [facility] Respiratory rate 2023-04-27 15:01:00 16 /min [facility] Body height 2023-04-27 15:01:00 160 cm [facility] Body weight 2023-04-27 15:01:00 56.337 kg [facility] BMI 2023-04-27 15:01:00 22.00 kg/m2 [facility] Oxygen saturation in Arterial blood by Pulse oximetry 2023-04-27 15:01:00 98 /min [facility] Systolic blood pressure 2023-04-25 22:01:00 115 mm[Hg] [facility] Diastolic blood pressure 2023-04-25 22:01:00 84 mm[Hg] [facility] Heart rate 2023-04-25 22:01:00 108 /min [facility] Body temperature 2023-04-25 22:01:00 36.61 Linda [facility] Respiratory rate 2023-04-25 22:01:00 19 /min [facility] Body height 2023-04-25 22:01:00 160 cm [facility] Body weight 2023-04-25 22:01:00 57.607 kg [facility] BMI 2023-04-25 22:01:00 22.50 kg/m2 [facility] Oxygen saturation in Arterial blood by Pulse oximetry 2023-04-25 22:01:00 100 /min [facility] Body temperature 2022-12-15 15:53:00 36.44 Linda [facility] Body weight 2022-12-15 15:53:00 52.39 kg [facility] Systolic blood pressure 2022-11-25 13:50:00 109 mm[Hg] [facility] Diastolic blood pressure 2022-11-25 13:50:00 76 mm[Hg] [facility] Heart rate 2022-11-25 13:50:00 89 /min [facility] Respiratory rate 2022-11-25 13:50:00 18 /min [facility] Body height 2022-11-25 13:50:00 160 cm [facility] Body weight 2022-11-25 13:50:00 53.071 kg [facility] BMI 2022-11-25 13:50:00 20.73 kg/m2 [facility] Body temperature 2022-06-16 17:18:00 35.83 Linda [facility] Body height 2022-06-16 17:18:00 160 cm [facility] Body weight 2022-06-16 17:18:00 50.44 kg [facility] BMI 2022-06-16 17:18:00 19.70 kg/m2 [facility] Systolic blood pressure 2022-06-01 05:18:00 94 mm[Hg] erp informed, asymptomatic [facility] Diastolic blood pressure 2022-06-01 05:18:00 71 mm[Hg] erp informed, asymptomatic [facility] Heart rate 2022-06-01 05:18:00 85 /min [facility] Respiratory rate 2022-06-01 05:18:00 18 /min [facility] Oxygen saturation in Arterial blood by Pulse oximetry 2022-06-01 05:18:00 100 /min [facility] Body temperature 2022-06-01 04:31:00 36.5 Linda [facility] Body height 2022-06-01 04:31:00 160 cm [facility] Body weight 2022-06-01 04:31:00 51.256 kg [facility] BMI 2022-06-01 04:31:00 20.02 kg/m2 [facility] Body temperature 2022-05-19 18:10:00 36.28 Linda [facility] Body weight 2022-05-19 18:10:00 51.256 kg [facility] BMI 2022-05-19 18:10:00 20.02 kg/m2 [facility] Body temperature 2022-04-21 20:32:00 36.22 Linda [facility] Body height 2022-04-21 20:32:00 160 cm [facility] Body weight 2022-04-21 20:32:00 50.349 kg [facility] BMI 2022-04-21 20:32:00 19.66 kg/m2 [facility] Systolic blood pressure 2022-04-11 03:10:00 110 mm[Hg] [facility] Diastolic blood pressure 2022-04-11 03:10:00 73 mm[Hg] [facility] Heart rate 2022-04-11 03:10:00 88 /min [facility] Respiratory rate 2022-04-11 03:10:00 18 /min [facility] Oxygen saturation in Arterial blood by Pulse oximetry 2022-04-11 03:10:00 100 /min [facility] Body temperature 2022-04-10 22:10:00 36.28 Linda [facility] Body weight 2022-04-10 22:10:00 49.896 kg [facility] BMI 2022-04-10 22:10:00 19.80 kg/m2 [facility] Systolic blood pressure 2022-04-10 21:48:00 108 mm[Hg] [facility] Diastolic blood pressure 2022-04-10 21:48:00 75 mm[Hg] [facility] Heart rate 2022-04-10 21:48:00 127 /min [facility] Body temperature 2022-04-10 21:48:00 36.61 Linda [facility] Respiratory rate 2022-04-10 21:48:00 17 /min [facility] Body height 2022-04-10 21:48:00 158.8 cm [facility] Body weight 2022-04-10 21:48:00 49.896 kg [facility] BMI 2022-04-10 21:48:00 19.80 kg/m2 [facility] Oxygen saturation in Arterial blood by Pulse oximetry 2022-04-10 21:48:00 98 /min [facility] Systolic blood pressure 2022-04-07 18:00:00 104 mm[Hg] [facility] Diastolic blood pressure 2022-04-07 18:00:00 58 mm[Hg] [facility] Heart rate 2022-04-07 18:00:00 64 /min [facility] Body temperature 2022-04-07 18:00:00 36.39 Linda [facility] Respiratory rate 2022-04-07 18:00:00 18 /min [facility] Oxygen saturation in Arterial blood by Pulse oximetry 2022-04-07 18:00:00 96 /min [facility] Body height 2022-04-04 23:00:18 161.3 cm [facility] Body weight 2022-04-04 23:00:18 50.349 kg [facility] BMI 2022-04-04 23:00:18 19.35 kg/m2 [facility] Heart rate 2022-04-04 21:03:00 109 /min [facility] Body temperature 2022-04-04 21:03:00 37.72 Linda [facility] Respiratory rate 2022-04-04 21:03:00 18 /min [facility] Oxygen saturation in Arterial blood by Pulse oximetry 2022-04-04 21:03:00 95 /min [facility] Systolic blood pressure 2022-04-04 21:00:00 98 mm[Hg] [facility] Diastolic blood pressure 2022-04-04 21:00:00 64 mm[Hg] [facility] Body height 2022-04-04 17:44:00 162.6 cm [facility] Body weight 2022-04-04 17:44:00 50.349 kg [facility] BMI 2022-04-04 17:44:00 19.05 kg/m2 [facility] Systolic blood pressure 2022-04-01 06:00:00 118 mm[Hg] [facility] Diastolic blood pressure 2022-04-01 06:00:00 92 mm[Hg] [facility] Heart rate 2022-04-01 06:00:00 78 /min [facility] Respiratory rate 2022-04-01 06:00:00 16 /min [facility] Oxygen saturation in Arterial blood by Pulse oximetry 2022-04-01 06:00:00 98 /min [facility] Body height 2022-04-01 03:48:00 160 cm [facility] Body weight 2022-04-01 03:48:00 56.7 kg [facility] BMI 2022-04-01 03:48:00 22.14 kg/m2 [facility] Height 2020-09-25 23:56:00 165.1 CM Weight 2020-09-25 23:56:00 2.69 KG Systolic blood pressure 2023-07-19 17:00:00 101 mm[Hg] [facility] Diastolic blood pressure 2023-07-19 17:00:00 65 mm[Hg] [facility] Heart rate 2023-07-19 17:00:00 81 /min [facility] Body temperature 2023-07-19 17:00:00 37.11 Linda [facility] Respiratory rate 2023-07-19 17:00:00 16 /min [facility] Body weight 2023-07-19 17:00:00 55.339 kg [facility] BMI 2023-07-19 17:00:00 21.61 kg/m2 [facility] Oxygen saturation in Arterial blood by Pulse oximetry 2023-07-19 17:00:00 99 /min [facility] Body height 2023-07-13 21:40:00 160 cm [facility] Systolic blood pressure 2023-07-04 21:39:00 110 mm[Hg] [facility] Diastolic blood pressure 2023-07-04 21:39:00 69 mm[Hg] [facility] Heart rate 2023-07-04 21:39:00 92 /min [facility] Respiratory rate 2023-07-04 21:39:00 18 /min [facility] Body height 2023-07-04 21:39:00 165.1 cm [facility] Body weight 2023-07-04 21:39:00 54.795 kg [facility] BMI 2023-07-04 21:39:00 20.10 kg/m2 [facility] Systolic blood pressure 2023-06-20 20:22:00 108 mm[Hg] [facility] Diastolic blood pressure 2023-06-20 20:22:00 71 mm[Hg] [facility] Heart rate 2023-06-20 20:22:00 78 /min [facility] Respiratory rate 2023-06-20 20:22:00 18 /min [facility] Body height 2023-06-20 20:22:00 165.1 cm [facility] Body weight 2023-06-20 20:22:00 55.792 kg [facility] BMI 2023-06-20 20:22:00 20.47 kg/m2 [facility] Systolic blood pressure 2023-06-01 20:22:00 127 mm[Hg] [facility] Diastolic blood pressure 2023-06-01 20:22:00 87 mm[Hg] [facility] Heart rate 2023-06-01 20:22:00 105 /min [facility] Respiratory rate 2023-06-01 20:22:00 18 /min [facility] Body height 2023-06-01 20:22:00 165.1 cm [facility] Body weight 2023-06-01 20:22:00 58.06 kg [facility] BMI 2023-06-01 20:22:00 21.30 kg/m2 [facility] Body temperature 2023-05-23 14:11:00 36.83 Linda [facility] Systolic blood pressure 2023-05-09 20:51:00 119 mm[Hg] [facility] Diastolic blood pressure 2023-05-09 20:51:00 81 mm[Hg] [facility] Heart rate 2023-05-09 20:51:00 118 /min [facility] Respiratory rate 2023-05-09 20:51:00 18 /min [facility] Body height 2023-05-09 20:51:00 160 cm [facility] Body weight 2023-05-09 20:51:00 57.244 kg [facility] BMI 2023-05-09 20:51:00 22.36 kg/m2 [facility] Systolic blood pressure 2023-04-27 15:01:00 117 mm[Hg] [facility] Diastolic blood pressure 2023-04-27 15:01:00 78 mm[Hg] [facility] Heart rate 2023-04-27 15:01:00 126 /min [facility] Body temperature 2023-04-27 15:01:00 36.83 Linda [facility] Respiratory rate 2023-04-27 15:01:00 16 /min [facility] Body height 2023-04-27 15:01:00 160 cm [facility] Body weight 2023-04-27 15:01:00 56.337 kg [facility] BMI 2023-04-27 15:01:00 22.00 kg/m2 [facility] Oxygen saturation in Arterial blood by Pulse oximetry 2023-04-27 15:01:00 98 /min [facility] Systolic blood pressure 2023-04-18 19:50:00 117 mm[Hg] [facility] Diastolic blood pressure 2023-04-18 19:50:00 79 mm[Hg] [facility] Heart rate 2023-04-18 19:50:00 104 /min [facility] Respiratory rate 2023-04-18 19:50:00 18 /min [facility] Body height 2023-04-18 19:50:00 160 cm [facility] Body weight 2023-04-18 19:50:00 57.335 kg [facility] BMI 2023-04-18 19:50:00 22.39 kg/m2 [facility] Systolic blood pressure 2023-03-30 19:30:00 107 mm[Hg] [facility] Diastolic blood pressure 2023-03-30 19:30:00 75 mm[Hg] [facility] Heart rate 2023-03-30 19:30:00 109 /min [facility] Respiratory rate 2023-03-30 19:30:00 18 /min [facility] Body height 2023-03-30 19:30:00 160 cm [facility] Body weight 2023-03-30 19:30:00 55.43 kg [facility] BMI 2023-03-30 19:30:00 21.65 kg/m2 [facility] Systolic blood pressure 2023-03-16 19:30:00 108 mm[Hg] [facility] Diastolic blood pressure 2023-03-16 19:30:00 76 mm[Hg] [facility] Heart rate 2023-03-16 19:30:00 92 /min [facility] Respiratory rate 2023-03-16 19:30:00 18 /min [facility] Body height 2023-03-16 19:30:00 160 cm [facility] Body weight 2023-03-16 19:30:00 54.341 kg [facility] BMI 2023-03-16 19:30:00 21.22 kg/m2 [facility] Body temperature 2022-12-15 15:53:00 36.44 Linda [facility] Body weight 2022-12-15 15:53:00 52.39 kg [facility] Systolic blood pressure 2022-12-05 13:53:00 120 mm[Hg] [facility] Diastolic blood pressure 2022-12-05 13:53:00 79 mm[Hg] [facility] Heart rate 2022-12-05 13:53:00 95 /min [facility] Respiratory rate 2022-12-05 13:53:00 18 /min [facility] Body height 2022-12-05 13:53:00 160 cm [facility] Body weight 2022-12-05 13:53:00 53.434 kg [facility] BMI 2022-12-05 13:53:00 20.87 kg/m2 [facility] Systolic blood pressure 2022-11-25 13:50:00 109 mm[Hg] [facility] Diastolic blood pressure 2022-11-25 13:50:00 76 mm[Hg] [facility] Heart rate 2022-11-25 13:50:00 89 /min [facility] Respiratory rate 2022-11-25 13:50:00 18 /min [facility] Body height 2022-11-25 13:50:00 160 cm [facility] Body weight 2022-11-25 13:50:00 53.071 kg [facility] BMI 2022-11-25 13:50:00 20.73 kg/m2 [facility] Systolic blood pressure 2022-10-31 14:07:00 126 mm[Hg] [facility] Diastolic blood pressure 2022-10-31 14:07:00 79 mm[Hg] [facility] Heart rate 2022-10-31 14:07:00 93 /min [facility] Respiratory rate 2022-10-31 14:07:00 18 /min [facility] Body height 2022-10-31 14:07:00 160 cm [facility] Body weight 2022-10-31 14:07:00 51.256 kg [facility] BMI 2022-10-31 14:07:00 20.02 kg/m2 [facility] Systolic blood pressure 2022-09-19 13:00:00 108 mm[Hg] [facility] Diastolic blood pressure 2022-09-19 13:00:00 83 mm[Hg] [facility] Heart rate 2022-09-19 13:00:00 88 /min [facility] Respiratory rate 2022-09-19 13:00:00 18 /min [facility] Body height 2022-09-19 13:00:00 160 cm [facility] Body weight 2022-09-19 13:00:00 51.256 kg [facility] BMI 2022-09-19 13:00:00 20.02 kg/m2 [facility] Systolic blood pressure 2022-08-22 15:53:00 117 mm[Hg] [facility] Diastolic blood pressure 2022-08-22 15:53:00 80 mm[Hg] [facility] Heart rate 2022-08-22 15:53:00 88 /min [facility] Respiratory rate 2022-08-22 15:53:00 18 /min [facility] Body height 2022-08-22 15:53:00 160 cm [facility] Body weight 2022-08-22 15:53:00 50.803 kg [facility] BMI 2022-08-22 15:53:00 19.84 kg/m2 [facility] Systolic blood pressure 2022-07-25 14:23:00 100 mm[Hg] [facility] Diastolic blood pressure 2022-07-25 14:23:00 78 mm[Hg] [facility] Heart rate 2022-07-25 14:23:00 107 /min [facility] Respiratory rate 2022-07-25 14:23:00 18 /min [facility] Body height 2022-07-25 14:23:00 160 cm [facility] Body weight 2022-07-25 14:23:00 50.803 kg [facility] BMI 2022-07-25 14:23:00 19.84 kg/m2 [facility] Body temperature 2022-06-16 17:18:00 35.83 Linda [facility] Body height 2022-06-16 17:18:00 160 cm [facility] Body weight 2022-06-16 17:18:00 50.44 kg [facility] BMI 2022-06-16 17:18:00 19.70 kg/m2 [facility] Systolic blood pressure 2022-06-16 16:33:00 113 mm[Hg] [facility] Diastolic blood pressure 2022-06-16 16:33:00 79 mm[Hg] [facility] Heart rate 2022-06-16 16:33:00 112 /min [facility] Respiratory rate 2022-06-16 16:33:00 18 /min [facility] Body height 2022-06-16 16:33:00 160 cm [facility] Body weight 2022-06-16 16:33:00 51.256 kg [facility] BMI 2022-06-16 16:33:00 20.02 kg/m2 [facility] Systolic blood pressure 2022-06-13 16:37:00 117 mm[Hg] [facility] Diastolic blood pressure 2022-06-13 16:37:00 85 mm[Hg] [facility] Heart rate 2022-06-13 16:37:00 118 /min [facility] Respiratory rate 2022-06-13 16:37:00 18 /min [facility] Body height 2022-06-13 16:37:00 160 cm [facility] Body weight 2022-06-13 16:37:00 50.803 kg [facility] BMI 2022-06-13 16:37:00 19.84 kg/m2 [facility] Oxygen saturation in Arterial blood by Pulse oximetry 2022-06-01 05:18:00 100 /min [facility] Body temperature 2022-06-01 04:31:00 36.5 Linda [facility] Systolic blood pressure 2022-05-19 16:06:00 124 mm[Hg] [facility] Diastolic blood pressure 2022-05-19 16:06:00 85 mm[Hg] [facility] Heart rate 2022-05-19 16:06:00 103 /min [facility] Respiratory rate 2022-05-19 16:06:00 18 /min [facility] Body height 2022-05-19 16:06:00 160 cm [facility] Body weight 2022-05-19 16:06:00 51.256 kg [facility] BMI 2022-05-19 16:06:00 20.02 kg/m2 [facility] Systolic blood pressure 2022-05-02 13:53:00 115 mm[Hg] [facility] Diastolic blood pressure 2022-05-02 13:53:00 80 mm[Hg] [facility] Heart rate 2022-05-02 13:53:00 103 /min [facility] Respiratory rate 2022-05-02 13:53:00 18 /min [facility] Body height 2022-05-02 13:53:00 160 cm [facility] Body weight 2022-05-02 13:53:00 51.256 kg [facility] BMI 2022-05-02 13:53:00 20.02 kg/m2 [facility] Body temperature 2022-04-21 20:32:00 36.22 Linda [facility] Body height 2022-04-21 20:32:00 160 cm [facility] Body weight 2022-04-21 20:32:00 50.349 kg [facility] BMI 2022-04-21 20:32:00 19.66 kg/m2 [facility] Systolic blood pressure 2022-04-21 15:04:00 104 mm[Hg] [facility] Diastolic blood pressure 2022-04-21 15:04:00 71 mm[Hg] [facility] Heart rate 2022-04-21 15:04:00 110 /min [facility] Respiratory rate 2022-04-21 15:04:00 18 /min [facility] Body height 2022-04-21 15:04:00 157.5 cm [facility] Body weight 2022-04-21 15:04:00 49.896 kg [facility] BMI 2022-04-21 15:04:00 20.12 kg/m2 [facility] [facility] Systolic blood pressure 2022-04-11 03:10:00 110 mm[Hg] [facility] Diastolic blood pressure 2022-04-11 03:10:00 73 mm[Hg] [facility] Heart rate 2022-04-11 03:10:00 88 /min [facility] Respiratory rate 2022-04-11 03:10:00 18 /min [facility] Oxygen saturation in Arterial blood by Pulse oximetry 2022-04-11 03:10:00 100 /min [facility] Body temperature 2022-04-10 22:10:00 36.28 Linda [facility] Body weight 2022-04-10 22:10:00 49.896 kg [facility] BMI 2022-04-10 22:10:00 19.80 kg/m2 [facility] Body height 2022-04-10 21:48:00 158.8 cm [facility] Systolic blood pressure 2022-04-06 13:00:00 114 mm[Hg] [facility] Diastolic blood pressure 2022-04-06 13:00:00 71 mm[Hg] [facility] Heart rate 2022-04-06 13:00:00 92 /min [facility] Body temperature 2022-04-06 13:00:00 36.78 Linda [facility] Respiratory rate 2022-04-06 13:00:00 20 /min [facility] Oxygen saturation in Arterial blood by Pulse oximetry 2022-04-06 13:00:00 96 /min [facility] Body height 2022-04-04 23:00:18 161.3 cm [facility] Body weight 2022-04-04 23:00:18 50.349 kg [facility] BMI 2022-04-04 23:00:18 19.35 kg/m2 [facility] Systolic blood pressure 2022-03-28 14:54:00 116 mm[Hg] [facility] Diastolic blood pressure 2022-03-28 14:54:00 87 mm[Hg] [facility] Heart rate 2022-03-28 14:54:00 113 /min [facility] Respiratory rate 2022-03-28 14:54:00 18 /min [facility] Body height 2022-03-28 14:54:00 160 cm [facility] Body weight 2022-03-28 14:54:00 51.71 kg [facility] BMI 2022-03-28 14:54:00 20.19 kg/m2 [facility] Body temperature 2022-02-24 18:37:00 37 Linda [facility] Body weight 2022-02-24 18:37:00 51.801 kg [facility] BMI 2022-02-24 18:37:00 20.23 kg/m2 [facility] Systolic blood pressure 2022-02-21 12:51:00 133 mm[Hg] [facility] Diastolic blood pressure 2022-02-21 12:51:00 49 mm[Hg] [facility] Heart rate 2022-02-21 12:51:00 108 /min [facility] Respiratory rate 2022-02-21 12:51:00 18 /min [facility] Body height 2022-02-21 12:51:00 160 cm [facility] Oxygen saturation in Arterial blood by Pulse oximetry 2022-01-24 00:45:00 98 /min [facility] Head Occipital-frontal circumference by Tape measure 2009-07-13 18:51:00 51 cm [facility] Procedures Procedure Date / Time Performed Performing Clinician Source EXTERNAL PROVIDER RECORDS 2023-08-01 06:01:00 Do ctor Unassigned, [place] [facility] EXTERNAL PROVIDER RECORDS 2023-08-01 06:01:00 Do ctor Unassigned, [place] [facility] POCT SARS-COV-2 ANTIGEN (BINAX NOW) 2023-07-19 17:01:00 Vania Em [facility] POCT SARS-COV-2 ANTIGEN (BINAX NOW) 2023-07-19 17:01:00 Vania Em [facility] AUTHORIZATION FOR RELEASE OF PHI 2023-07-04 06:01:00 Doctor Unassigned, [place] [facility] AUTHORIZATION FOR RELEASE OF PHI 2023-07-04 06:01:00 Doctor Unassigned, [place] [facility] AUTHORIZATION FOR RELEASE OF PHI 2023-06-20 06:01:00 Doctor Unassigned, [place] [facility] AUTHORIZATION FOR RELEASE OF PHI 2023-06-20 06:01:00 Doctor Unassigned, [place] [facility] DISCLOSURE AND [facility]SENT [facility]ICAL [facility] 2023-05-23 06:01:00 Doctor Unassigned, [place] [facility] DISCLOSURE AND CONSENT MEDICAL & SURGICAL PROCEDURES - [facility] 2023-05-23 06:01:00 Doctor Unassigned, [place] [facility] EXTERNAL PROVIDER RECORDS 2023-04-28 05:01:00 Do ctor Unassigned, [place] [facility] AUTHORIZATION TO RELEASE PHI TO [facility] 2023-04-27 05:01:00 Doctor Unassigned, [place] [facility] CONSENT/REFUSAL FOR DIAGNOSIS AND TREATMENT 2023-04-25 21:52:57 Doctor Unassigned, [place] [facility] CONSENT/REFUSAL FOR DIAGNOSIS AND TREATMENT 2023-04-25 21:52:57 Doctor Unassigned, [place] [facility] EMERGENCY SERVICES AGREEMENTS AND AUTHORIZATIONS 2023-04-25 05:01:00 Doctor Unassigned, [place] [facility] TEST, URINE 2023-03-16 20:47:00 Eva Valverde [facility] AUTHORIZATION FOR RELEASE OF PHI 2023-03-16 05:01:00 Doctor Unassigned, [place] [facility] AUTHORIZATION FOR RELEASE OF PHI 2023-03-16 05:01:00 Doctor Unassigned, [place] [facility] XR PELVIS 3+ VW 2022-12-15 15:31:00 Bouchra Mcintosh [facility] XR PELVIS 3+ VW 2022-12-15 15:31:00 Bouchra Mcintosh [facility] DEPUTY CHIEF EXECUTIVE CLINIC ULTRASOUND 2022-11-25 05:01:00 Doc tor Unassigned, [place] [facility] DEPUTY CHIEF EXECUTIVE CLINIC ULTRASOUND 2022-11-25 05:01:00 Doc tor Unassigned, [place] [facility] PATIENT FINANCIAL POLICY 2022-10-31 14:21:09 Doctor Unassigned, [place] [facility] PATIENT FINANCIAL POLICY 2022-10-31 14:21:09 Doctor Unassigned, [place] [facility] AUTHORIZATION FOR RELEASE OF PHI 2022-10-07 05:01:00 Doctor Unassigned, [place] [facility] AUTHORIZATION FOR RELEASE OF PHI 2022-10-07 05:01:00 Doctor Unassigned, [place] [facility] AUTHORIZATION FOR RELEASE OF PHI 2022-09-06 06:01:00 Doctor Unassigned, [place] [facility] AUTHORIZATION FOR RELEASE OF PHI 2022-09-06 06:01:00 Doctor Unassigned, [place] [facility] XR PELVIS 3+ VW 2022-06-16 17:07:12 Bouchra Mcintosh [facility] XR PELVIS 3+ VW 2022-06-16 17:07:12 Bouchra Mcintosh [facility] CONSENT/REFUSAL FOR DIAGNOSIS AND TREATMENT 2022-06-01 04:17:40 Doctor Unassigned, [place] [facility] CONSENT/REFUSAL FOR DIAGNOSIS AND TREATMENT 2022-06-01 04:17:40 Doctor Unassigned, [place] [facility] EMERGENCY SERVICES AGREEMENTS AND AUTHORIZATIONS 2022-05-31 06:01:00 Doctor Unassigned, [place] [facility] XR PELVIS 3+ VW 2022-05-19 16:43:54 Bouchra Mcintosh [facility] XR PELVIS 3+ VW 2022-05-19 16:43:54 Bouchra Mcintosh [facility] XR PELVIS 3+ VW 2022-04-21 20:26:51 Bouchra Mcintosh [facility] XR HIPS 3 VW RIGHT 2022-04-11 02:02:47 Sis Robledo [facility] XR PELVIS <3 VW 2022-04-11 02:02:47 Irasema Robledo [facility] XR PELVIS <3 VW 2022-04-11 02:02:47 Irasema Robledo [facility] XR HIPS 3 VW RIGHT 2022-04-11 02:02:47 Sis Robledo [facility] POCT TEST 2022-04-11 01:46:00 Crystal Robledo [facility] POCT TEST 2022-04-11 01:46:00 Crystal Robledo [facility] URINALYSIS 2022-04-11 01:45[facility]11 01:45:00 Venkat [facility] COMP. METABOLIC PANEL ([id number]) 2022-04-10 23:02:00 Irasema Robledo [facility] CBC WITH DIFF 2022-04-10 23:02:00 Irasema Robledo [facility] CBC WITH DIFF 2022-04-10 23:02:00 Irasema Robledo [facility] COMP. METABOLIC PANEL ([id number]) 2022-04-10 23:02:00 Irsaema Robledo [facility] EMERGENCY SERVICES AGREEMENTS AND AUTHORIZATIONS 2022-04-10 05:01:00 Doctor Unassigned, [place] [facility] EMERGENCY DEPARTMENT DOCUMENTS 2022-04-10 05:01:00 Doctor Unassigned, [place] [facility] XR CLAVICLE COMP BILATERAL 2022-04-05 19:40:00 [facility] XR CLAVICLE COMP BILATERAL 2022-04-05 19:40:00 Lobo Castano [facility] URINALYSIS 2022-04-05 11:07:00 Pillo Garza [facility] URINALYSIS 2022-04-05 11:07:00 Pillo Garza [facility] CBC WITH DIFF 2022-04-05 10:24:00 Tasha Ny [facility] BASIC METABOLIC PANEL (NA, K, CL, CO2, GLUCOSE, BUN, CREATININE, CA) 2022-04-05 10:24:00 Jimena Ny [facility] BASIC METABOLIC PANEL (NA, K, CL, CO2, GLUCOSE, BUN, CREATININE, CA) 2022-04-05 10:24:00 [facility] 2022-04-05 10:24:00 AnantTasha irene [facility] COVID-19 (ID NOW RAPID TESTING) 2022-04-05 00:38:00 AnantJimena irene [facility] LAB ONLY COVID INTERPRETATION 2022-04-05 00:38:00 AnantJimena lopez [facility] COVID-19 (ID NOW RAPID TESTING) 2022-04-05 00:38:00 AnantJimena lopez [facility] LAB ONLY COVID INTERPRETATION 2022-04-05 00:38:00 AnantJimena lopez [facility] TROPONIN I 2022-04-05 00:25:00 ChouDuke [facility]land [facility] TROPONIN I 2022-04-05 00:25:00 ChouD[facility] XR SHOULDER 2+ VW RIGHT 2022-04-05 00:11:00 Orti [facility] XR KNEE 3 VW LEFT 2022-04-05 00:11:00 ChouDuke Neff [facility] XR FOOT 3+ VW LEFT 2022-04-05 00:11:00 ChouD[facility] XR PELVIS 3+ VW 2022-04-05 00:11:00 [facility]3 [facility]W RIGHT 2022-04-05 00:11:00 Saad Rossi [facility] XR FOOT 3+ VW LEFT 2022-04-05 00:11:00 Chou [facility] XR KNEE <3 VW RIGHT 2022-04-05 00:11:00 Saad Rossi [facility] XR KNEE 3 VW LEFT 2022-04-05 00:11:00 ChouDuke Neff [facility] XR PELVIS 3+ VW 2022-04-05 00:11:00 Saad Rossi [facility] XR SHOULDER 2+ VW RIGHT 2022-04-05 00:11:00 Orti [facility] HB ECG ROUTINE & RHYTHM STRIP 2022-04-04 23:08:36 ChouD[facility] Ivy [facility] HB ECG ROUTINE & RHYTHM STRIP 2022-04-04 23:08:36 Chou [facility] HB ABO GROUPING 2022-04-04 19:55:00 [facility] 2022-04-04 19:55:00 Nolvia Husain [facility] CT TRAUMA HEAD WO CONTRAST 2022-04-04 19:10:01 Rodrigue [facility] TRAUMA CERVICAL SPINE WO CONTRAST 2022-04-04 19:10:01 Rodrigue [facility] CT TRAUMA THORACIC SPINE WO CONTRAST 2022-04-04 19:10:01 Rdorigue [facility] CT TRAUMA LUMBAR SPINE WO CONTRAST 2022-04-04 19:10:01 Rodrigue [facility] CT TRAUMA HEAD WO CONTRAST 2022-04-04 19:10:01 Rodrigue [facility] CT TRAUMA CERVICAL SPINE WO CONTRAST 2022-04-04 19:10:01 Rodrigue [facility] CT TRAUMA THORACIC SPINE WO CONTRAST 2022-04-04 19:10:01 Rodrigue [facility] CT TRAUMA LUMBAR SPINE WO CONTRAST 2022-04-04 19:10:01 Rodrigue [facility] CT TRAUMA THORAX W CONTRAST 2022-04-04 19:08:26 Rodrig[address] [facility] CT TRAUMA ABDOMEN PELVIS W CONTRAST 2022-04-04 19:08:26 Rodrigue [facility] CT TRAUMA THORAX W CONTRAST 2022-04-04 19:08:26 [address] [facility] TRAUMA ABDOMEN PELVIS W CONTRAST 2022-04-04 19:08:26 Rodrigue [facility] ABORH CONFIRMATION (LAB ONLY) 2022-04-04 19:02:00 Nolvia Husain [facility] ABORH CONFIRMATION (LAB ONLY) 2022-04-04 19:02:00 Nolvia Husain [facility] LIPASE 2022-04-04 18:35:00 [facility] TEST, SERUM 2022-04-04 18:35:00 Simon Husain [facility] COMP. METABOLIC PANEL ([id number]) 2022-04-04 18:35:00 Nolvia Husain [facility] COMP. METABOLIC PANEL ([id number]) 2022-04-04 18:35:00 Nolvia Husain [facility] LIPASE 2022-04-04 18:35:00 Nolvia Husain [facility] TEST, SERUM 2022-04-04 18:35:00 Simon Husain [facility] CBC WITH DIFF 2022-04-04 18:20:00 Nolvia Husain [facility] CBC WITH DIFF 2022-04-04 18:20:00 Nolvia Husain [facility] EMERGENCY SERVICES AGREEMENTS AND AUTHORIZATIONS 2022-04-04 05:01:00 Doctor Unassigned, [place] [facility] EMERGENCY DEPARTMENT DOCUMENTS 2022-04-04 05:01:00 Doctor Unassigned, [place] [facility] EMERGENCY SERVICES AGREEMENTS AND AUTHORIZATIONS 2022-04-04 05:01:00 Doctor Unassigned, [place] [facility] EMERGENCY DEPARTMENT DOCUMENTS 2022-04-04 05:01:00 Doctor Unassigned, [place] [facility] POCT TEST 2022-04-01 04:37:00 Deonna Melendrez [facility] POCT TEST 2022-04-01 04:37:00 Deonna Melendrez [facility] LIPASE 2022-04-01 04:36:00 [facility] COMP. METABOLIC PANEL ([id number]) 2022-04-01 04:36:00 Deonna Melendrez [facility] CBC WITH DIFF 2022-04-01 04:36:00 [facility] URINALYSIS 2022-04-01 04:36:00 Deonna Melendrez [facility] CBC WITH DIFF 2022-04-01 04:36:00 [facility] COMP. METABOLIC PANEL ([id number]) 2022-04-01 04:36:00 Deonna Melendrez [facility] URINALYSIS 2022-04-01 04:36:00 Deonna Melendrez [facility] LIPASE 2022-04-01 04:36:00 Deonna Melendrez [facility] NOTICE OF PRIVACY PRACTICES 2022-04-01 03:37:12 Doctor Unassigned, [place] [facility] NOTICE OF PRIVACY PRACTICES 2022-04-01 03:37:12 Doctor Unassigned, [place] [facility] CONSENT/REFUSAL FOR DIAGNOSIS AND TREATMENT 2022-04-01 03:36:55 Doctor Unassigned, [place] [facility] CONSENT/REFUSAL FOR DIAGNOSIS AND TREATMENT 2022-04-01 03:36:55 Doctor Unassigned, [place] [facility] EMERGENCY SERVICES AGREEMENTS AND AUTHORIZATIONS 2022-03-31 05:01:00 Doctor Unassigned, [place] [facility] SARS-COV-2 COVID-19 MIKE-SUCROSE VACCINE 12 YRS+, BIVALENT 0.3ML, IM, (PFIZER ARITA TOP BOOSTER) 2022-03-17 16:49:14 Doctor Unassigned, [place] [facility] SARS-COV-2 COVID-19 MIKE-SUCROSE VACCINE 12 YRS+, BIVALENT 0.3ML, IM, (PFIZER ARITA TOP BOOSTER) 2022-03-17 16:49:14 Doctor Unassigned, [place] [facility] XR PELVIS 3+ VW 2022-02-24 18:13:00 Bouchra Mcintosh [facility] EXTERNAL PROVIDER RECORDS 2022-02-22 05:01:00 Do ctor Unassigned, [place] [facility] EMERGENCY SERVICES AGREEMENTS AND AUTHORIZATIONS 2022-01-23 05:01:00 Doctor Unassigned, [place] [facility] EMERGENCY DEPARTMENT DOCUMENTS 2022-01-23 05:01:00 Doctor Unassigned, [place] [facility] Encounters Start Date/Time End Date/Time Encounter Type Admission Type Attending Clinicians Care Facility Care Department Encounter ID Source 2022-09-19 17:53:01 Outpatient [facility] [id number] [facility] 2022-09-19 17:49:01 Outpatient [facility] [id number] [facility] 2021-11-02 11:00:33 Outpatient [facility] [id number] [facility] 2021-07-09 12:46:00 Inpatient [facility] [id number] [facility] 2021-05-25 23:19:00 Inpatient [facility] [id number] [facility] 2021-04-30 23:08:18 Emergency [facility] [id number] [facility] 2023-08-11 13:00:00 2023-08-11 13:00:00 Outpatient R SHEA-JACQUELINE S, ALEJANDRA SHEA-JACQUELINE S, ALEJANDRA [facility] [id number] [facility] 2023-08-11 00:00:00 2023-08-11 00:00:00 RefAbby Alegria 1.2.840.1 [id number] 3.104.2.7 .3.375036 .[id number] [facility] 2023-08-01 00:00:00 2023-08-01 00:00:00 Orders Only Doctor Unassigned, [place] 1.2.840.1 80727.1.1 3.104.2.7 .3.123222 .[id number] [facility] 2023-07-31 14:45:00 2023-07-31 14:45:00 Outpatient R SHEA-JACQUELINE S, ALEJANDRA SHEA-JACQUELINE S, ALEJANDRA [facility] [id number] [facility] 2023-07-25 14:15:00 2023-07-25 14:15:00 Outpatient SUSAN AGUIRRE [facility] [id number] [facility] 2023-07-19 11:00:00 2023-07-19 11:22:28 Outpatient R MERLENEFATUMAHANDY [facility] [id number] [facility] 2023-07-19 11:00:00 2023-07-19 11:22:28 Urgent Care Unknown, Attending DanteHandy 1.2.840.1 [id number] 3.104.2.7 .3.648571 .[id number] [facility] 2023-07-19 00:00:00 2023-07-19 00:00:00 Travel 1.2.840.1 01413.1.1 3.104.2.7 .3.233194 .8 1.2.840.114 350.1.13.[id number] [facility] 2023-07-13 16:00:00 2023-07-13 16:06:46 Outpatient R ABBY LUKE [facility] [id number] [facility] 2023-07-13 16:00:00 2023-07-13 16:06:46 Office Visit Abby Luke 1.2.840.1 25459.1.1 3.104.2.7 .3.646084 .[id number] [facility] 2023-07-13 00:00:00 2023-07-13 00:00:00 Travel 1.2.840.1 [id number] 3.104.2.7 .3.921103 .8 1.2.840.114 350.1.13.[id number] [facility] 2023-07-07 11:30:00 2023-07-07 11:37:09 Outpatient R ALEJANDRA PARDO MARISOL [facility] [id number] [facility] 2023-07-07 11:30:00 2023-07-07 11:37:09 Office Visit Alejandra Pardo 1.2.840.1 42791.1.1 3.104.2.7 .3.583480 .[id number] [facility] 2023-07-07 00:00:00 2023-07-07 00:00:00 Travel 1.2.840.1 [id number] 3.104.2.7 .3.729623 .8 1.2.840.114 350.1.13.[id number] [facility] 2023-07-04 15:45:00 2023-07-04 16:12:14 Outpatient R SUSAN VALVERDE [facility] [id number] [facility] 2023-07-04 00:00:00 2023-07-04 00:00:00 Travel 1.2.840.1 [id number] 3.104.2.7 .3.925602 .8 1.2.840.114 350.1.13.10 [id number] [facility] 2023-07-04 00:00:00 2023-07-04 00:00:00 Orders Only Doctor Unassigned, [place] 1.2.840.1 04193.1.1 3.104.2.7 .3.773129 .[id number] [facility] 2023-06-29 09:30:00 2023-06-29 09:30:00 Outpatient R HUMBERTO PARDOSOL HUMBERTO PARDOSOL [facility] [id number] [facility] 2023-06-28 00:00:00 2023-06-28 00:00:00 Telephone Alejandra Pardo 1.2.840.1 34430.1.1 3.104.2.7 .3.233531 .[id number] [facility] 2023-06-20 14:15:00 2023-06-20 14:49:59 Outpatient SUSAN AGUIRRE [facility] [id number] [facility] 2023-06-20 00:00:00 2023-06-20 00:00:00 Orders Only Doctor Unassigned, [place] 1.2.840.1 11061.1.1 3.104.2.7 .3.433619 .[id number] [facility] 2023-06-19 00:00:00 2023-06-19 00:00:00 Travel 1.2.840.1 01208.1.1 3.104.2.7 .3.873216 .8 1.2.840.114 350.1.13.10 [id number] [facility] 2023-06-01 14:15:00 2023-06-01 14:53:29 Outpatient SUSAN AGUIRRE [facility] [id number] [facility] 2023-05-31 00:00:00 2023-05-31 00:00:00 Travel 1.2.840.1 98648.1.1 3.104.2.7 .3.263942 .8 1.2.840.114 350.1.13.[id number] [facility] 2023-05-23 08:00:00 2023-05-23 10:07:15 Office Visit Alejandra Pardo 1.2.840.1 [id number] 3.104.2.7 .3.805547 .[id number] [facility] 2023-05-23 08:00:00 2023-05-23 08:00:00 Outpatient R ALEJANDRA PARDO MARISOL [facility] [id number] [facility] 2023-05-23 00:00:00 2023-05-23 00:00:00 Orders Only Doctor Unassigned, [place] 1.2.840.1 24781.1.1 3.104.2.7 .3.340101 .[id number] [facility] 2023-05-23 00:00:00 2023-05-23 00:00:00 Travel 1.2.840.1 62525.1.1 3.104.2.7 .3.139695 .8 1.2.840.114 350.1.13.[id number] [facility] 2023-05-18 08:30:00 2023-05-18 08:30:00 Outpatient R SHEA-JACQUELINE S, ALEJANDRA SHEA-JACQUELINE S ALEJANDRA [facility] [id number] [facility] 2023-05-09 15:15:00 2023-05-09 15:53:25 Outpatient R KEMAL VALVERDEA [facility] [id number] [facility] 2023-05-09 00:00:00 2023-05-09 00:00:00 Travel 1.2.840.1 73581.1.1 3.104.2.7 .3.338584 .8 1.2.840.114 350.1.13.10 [id number] [facility] 2023-05-05 00:00:00 2023-05-05 00:00:00 Travel 1.2.840.1 46624.1.1 3.104.2.7 .3.941691 .8 1.2.840.114 350.1.13.10 [id number] [facility] 2023-04-27 10:00:00 2023-04-27 10:13:12 Outpatient R SHEA-JACQUELINE S, ALEJANDRA SHEA-JACQUELINE S, ALEJANDRA [facility] [id number] [facility] 2023-04-27 10:00:00 2023-04-27 10:13:12 Office Visit Alejandra Pardo 1.2.840.1 70172.1.1 3.104.2.7 .3.763017 .[id number] [facility] 2023-04-27 00:00:00 2023-04-27 00:00:00 Telephone Alejandra Pardo 1.2.840.1 17080.1.1 3.104.2.7 .3.792174 .[id number] [facility] 2023-04-27 00:00:00 2023-04-27 00:00:00 Travel 1.2.840.1 [id number] 3.104.2.7 .3.833884 .8 1.2.840.114 350.1.13.10 [address]7.[id number] [facility] 2023-04-25 17:02:00 2023-04-25 19:29:00 Emergency X DEONNA MELENDREZ [facility] ERT [id number] [facility] 2023-04-25 17:02:00 2023-04-25 19:29:00 Emergency Deonna Melendrez 1.2.840.1 63882.1.1 3.104.2.7 .3.035616 .[id number] [facility] 2023-04-25 00:00:00 2023-04-25 00:00:00 Telephone Alejandra Pardo 1.2.840.1 52635.1.1 3.104.2.7 .3.069200 .[id number] [facility] 2023-04-25 00:00:00 2023-04-25 00:00:00 Travel 1.2.840.1 87683.1.1 3.104.2.7 .3.256549 .8 1.2.840.114 350.1.13.[id number] [facility] 2023-04-18 14:45:00 2023-04-18 15:22:10 [facility] [id number] [facility] 2023-04-18 00:00:00 2023-04-18 00:00:00 Travel 1.2.840.1 45910.1.1 3.104.2.7 .3.075628 .8 1.2.840.114 350.1.13.10 [id number] [facility] 2023-04-14 00:00:00 2023-04-14 00:00:00 Travel 1.2.840.1 54385.1.1 3.104.2.7 .3.253723 .8 1.2.840.114 350.1.13.10 4[address]7.3[id number] [facility] 2023-04-03 14:15:00 2023-04-03 14:15:00 Campus Security Director Visit [facility], [facility] - Db 1.2.840.1 58303.1.1 3.104.2.7 .3.195456 .[id number] [facility] 2023-04-03 14:15:00 2023-04-03 11:18:40 Outpatient R GODWIN HANDY [facility] [id number] [facility] 2023-04-03 00:00:00 2023-04-03 00:00:00 Travel 1.2.840.1 38525.1.1 3.104.2.7 .3.696869 .8 1.2.840.114 350.1.13.10 [address]7.3[id number] [facility] 2023-03-30 14:45:00 2023-03-30 15:21:13 Outpatient R SUSAN VALVERDE [facility] [id number] [facility] 2023-03-30 00:00:00 2023-03-30 00:00:00 Travel 1.2.840.1 94018.1.1 3.104.2.7 .3.157088 .8 1.2.840.114 350.1.13.10 [address]7.3[id number] [facility] 2023-03-16 15:45:00 2023-03-16 16:00:00 Campus Security Director Visit Susan Valverde [facility] 1.2.840.1 47557.1.1 3.104.2.7 .3.045256 .[id number] [facility] 2023-03-16 14:45:00 2023-03-16 15:29:18 Outpatient R SUSAN VALVERDE [facility] [id number] [facility] 2023-03-16 00:00:00 2023-03-16 00:00:00 Travel 1.2.840.1 74699.1.1 3.104.2.7 .3.087652 .8 1.2.840.114 350.1.13.10 [address]7.3[id number] [facility] 2023-03-16 00:00:00 2023-03-16 00:00:00 Orders Only Doctor Unassigned, [place] 1.2.840.1 93811.1.1 3.104.2.7 .3.432926 .[id number] [facility] 2022-12-29 00:00:00 2022-12-29 00:00:00 Patient Secure Msg Pcp, Patient Does Not Have A [facility] 1.2.840.114 350.1.13.10 4.2.7.2.[id number] [facility] 2022-12-15 10:07:57 2022-12-15 23:59:00 Hospital Encounter Bouchra Mcintosh 1.2.840.1 29751.1.1 3.104.2.7 .3.423056 .[id number] [facility] 2022-12-15 10:30:00 2022-12-15 11:21:10 Outpatient R BOUCHRA MCINTOSH [facility] [id number] [facility] 2022-12-15 10:30:00 2022-12-15 11:21:10 Office Visit Bouchra Mcintosh 1.2.840.1 78422.1.1 3.104.2.7 .3.125493 .[id number] [facility] 2022-12-15 00:00:00 2022-12-15 00:00:00 Travel 1.2.840.1 38421.1.1 3.104.2.7 .3.328254 .8 1.2.840.114 350.1.13.10 [id number] [facility] 2022-12-05 08:45:00 2022-12-05 10:19:40 Outpatient R JAMES JACOBS [facility] [id number] [facility] 2022-12-05 00:00:00 2022-12-05 00:00:00 Travel 1.2.840.1 54782.1.1 3.104.2.7 .3.930514 .8 1.2.840.114 350.1.13.10 [address]7.3[id number] [facility] 2022-12-02 10:45:00 2022-12-02 10:45:00 Outpatient R [facility] [id number] [facility] 2022-11-25 08:30:00 2022-11-25 09:09:48 Outpatient R SHEA-ALEJANDRA RAJAN MARISOL [facility] [id number] [facility] 2022-11-25 08:30:00 2022-11-25 09:09:48 Office Visit Alejandra Pardo 1.2.840.1 74829.1.1 3.104.2.7 .3.348803 .[id number] [facility] 2022-11-25 00:00:00 2022-11-25 00:00:00 Travel 1.2.840.1 82482.1.1 3.104.2.7 .3.222691 .8 1.2.840.114 350.1.13.10 [address]7.3[id number] [facility] 2022-11-25 00:00:00 2022-11-25 00:00:00 Orders Only Doctor Unassigned, [place] 1.2.840.1 76887.1.1 3.104.2.7 .3.013720 .[id number] [facility] 2022-10-31 09:30:00 2022-10-31 10:46:48 Outpatient TEJAL PARHAM [facility] [id number] [facility] 2022-10-31 00:00:00 2022-10-31 00:00:00 Orders Only Doctor Unassigned, [place] 1.2.840.1 74159.1.1 3.104.2.7 .3.000446 .[id number] [facility] 2022-10-31 00:00:00 2022-10-31 00:00:00 Travel 1.2.840.1 88754.1.1 3.104.2.7 .3.883980 .8 1.2.840.114 350.1.13.10 4[address]7.3[id number] [facility] 2022-10-07 00:00:00 2022-10-07 00:00:00 Orders Only Doctor Unassigned, [place] 1.2.840.1 53201.1.1 3.104.2.7 .3.812079 .[id number] [facility] 2022-09-19 08:00:00 2022-09-19 09:02:03 Outpatient R TEJAL FORD [facility] [id number] [facility] 2022-09-19 00:00:00 2022-09-19 00:00:00 Travel 1.2.840.1 79841.1.1 3.104.2.7 .3.895441 .8 1.2.840.114 350.1.13.10 4[address]7.3[id number] [facility] 2022-09-09 00:00:00 2022-09-09 00:00:00 Patient Secure Msg Doctor Unassigned, [place] [facility] 1.2.840.114 350.1.13.10 4.2.7.2.[id number] [facility] 2022-09-06 00:00:00 2022-09-06 00:00:00 Orders Only Doctor Unassigned, [place] 1.2.840.1 47449.1.1 3.104.2.7 .3.441010 .[id number] [facility] 2022-08-22 10:15:00 2022-08-22 12:05:25 Outpatient R JAMES JACOBS [facility] [id number] [facility] 2022-08-22 00:00:00 2022-08-22 00:00:00 Travel 1.2.840.1 78349.1.1 3.104.2.7 .3.126259 .8 1.2.840.114 350.1.13.10 [address]7.3[id number] [facility] 2022-07-25 08:45:00 2022-07-25 10:27:30 Outpatient R JAMES JACOBS [facility] [id number] [facility] 2022-07-25 00:00:00 2022-07-25 00:00:00 Travel 1.2.840.1 20014.1.1 3.104.2.7 .3.958880 .8 1.2.840.114 350.1.13.10 4.2.7.3[id number] [facility] 2022-07-15 19:20:00 2022-07-15 21:08:00 Emergency EM Jose Guzmán HCATB EO3 [id number] [facility] mayda Spencer 2022-07-04 16:22:00 2022-07-04 17:00:00 Emergency EM Eric Moore HCAPM GAYLA [id number] [facility] 2022-06-16 10:58:02 2022-06-16 23:59:00 Hospital Encounter Bouchra Mcintosh 1.2.840.1 60239.1.1 3.104.2.7 .3.246641 .[id number] [facility] 2022-06-16 10:20:00 2022-06-16 11:48:13 Outpatient R BOUCHRA MCINTOSH [facility] [id number] [facility] 2022-06-16 10:20:00 2022-06-16 11:48:13 Office Visit Arnaldo Bouchra 1.2.840.1 24148.1.1 3.104.2.7 .3.612895 .[id number] [facility] 2022-06-16 00:00:00 2022-06-16 00:00:00 Travel 1.2.840.1 89219.1.1 3.104.2.7 .3.435925 .8 1.2.840.114 350.1.13.10 [address]7.3[id number] [facility] 2022-06-13 11:00:00 2022-06-13 11:34:17 [id number] 2022-06-13 00:00:00 2022-06-13 00:00:00 Travel 1.2.840.1 90051.1.1 3.104.2.7 .3.536442 .8 1.2.840.114 350.1.13.10 4[address]7.3[id number] [facility] 2022-05-31 22:37:00 2022-06-01 00:11:00 Emergency X DEONNA MELENDREZ [facility] ERT [id number] [facility] 2022-05-31 22:37:00 2022-06-01 00:11:00 Emergency Deonna Melendrez 1.2.840.1 55862.1.1 3.104.2.7 .3.120676 .[id number] [facility] 2022-05-31 00:00:00 2022-05-31 00:00:00 Travel 1.2.840.1 84037.1.1 3.104.2.7 .3.239893 .8 1.2.840.114 350.1.13.10 4.2.7.3.[id number] [facility] 2022-05-23 10:15:00 2022-05-23 10:15:00 [facility] [id number] [facility] 2022-05-19 10:33:33 2022-05-19 23:59:00 Hospital Encounter Bouchra Mcintosh 1.2.840.1 70493.1.1 3.104.2.7 .3.737871 .[id number] [facility] 2022-05-19 12:50:00 2022-05-19 12:50:00 Office Visit Bouchra Mcintosh 1.2.840.1 16844.1.1 3.104.2.7 .3.040360 .[id number] [facility] 2022-05-19 12:50:00 2022-05-19 12:42:46 Outpatient R ARNALDOBOUCHRA FOFANA [facility] [id number] [facility] 2022-05-19 00:00:00 2022-05-19 00:00:00 Travel 1.2.840.1 48871.1.1 3.104.2.7 .3.512549 .8 1.2.840.114 350.1.13.10 4.2.7.3[id number] [facility] 2022-05-02 08:45:00 2022-05-02 09:32:43 Outpatient R JAMES JACOBS [facility] [id number] [facility] 2022-05-02 00:00:00 2022-05-02 00:00:00 Travel 1.2.840.1 57619.1.1 3.104.2.7 .3.000501 .8 1.2.840.114 350.1.13.10 4[address]7.3[id number] [facility] 2022-04-21 15:08:38 2022-04-21 23:59:00 Outpatient R ARNALDOBOUCHRA ARNAA [facility] [id number] [facility] 2022-04-21 15:08:38 2022-04-21 23:59:00 Hospital Encounter Bouchra Mcintosh 1.2.840.1 96263.1.1 3.104.2.7 .3.968897 .[id number] [facility] 2022-04-21 15:20:00 2022-04-21 16:19:45 Office Visit Arnaldo Bouchra 1.2.840.1 53548.1.1 3.104.2.7 .3.469867 .[id number] [facility] 2022-04-21 00:00:00 2022-04-21 00:00:00 Travel 1.2.840.1 28964.1.1 3.104.2.7 .3.613426 .8 1.2.840.114 350.1.13.[id number] [facility] 2022-04-10 17:11:00 2022-04-10 22:14:00 Emergency X IRASEMA ROBLEDO [facility] ERT [id number] [facility] 2022-04-10 17:11:00 2022-04-10 22:14:00 Emergency Irasema Robledo 1.2.840.1 82405.1.1 3.104.2.7 .3.330919 .[id number] [facility] 2022-04-10 16:40:00 2022-04-10 18:22:07 Urgent Care Shivani [facility] 1.2.840.1 11430.1.1 3.104.2.7 .3.682897 .[id number] [facility] 2022-04-10 16:40:00 2022-04-10 16:40:00 Outpatient R SHIVANI GUERRA [facility] [id number] [facility] 2022-04-10 00:00:00 2022-04-10 00:00:00 Travel 1.2.840.1 03284.1.1 3.104.2.7 .3.027801 .8 1.2.840.114 350.1.13.10 [id number] [facility] 2022-04-08 00:00:00 2022-04-08 00:00:00 Transition of Care Negrita Moise 1.2.840.1 57955.1.1 3.104.2.7 .3.179931 .[id number] [facility] 2022-04-04 17:33:00 2022-04-07 17:00:00 Hospital Encounter PersonKeagan 1.2.840.1 09322.1.1 3.104.2.7 .3.559959 .[id number] [facility] 2022-04-06 00:00:00 2022-04-06 00:00:[address] [facility] Transition 1.2.840.1 69066.1.1 3.104.2.7 .3.674266 .[id number] [facility] 2022-04-04 12:41:00 2022-04-04 16:56:00 Emergency X NOLVIA HUSAIN [facility] ERT [id number] [facility] 2022-04-04 12:41:00 2022-04-04 16:56:00 Emergency X NOLVIA HUSAIN [facility] ERT [id number] [facility] 2022-04-04 12:41:00 2022-04-04 16:56:00 Emergency Nolvia Husain 1.2.840.1 03102.1.1 3.104.2.7 .3.114836 .[id number] [facility] 2022-04-04 00:00:00 2022-04-04 00:00:00 Travel 1.2.840.1 53031.1.1 3.104.2.7 .3.640991 .8 1.2.840.114 350.1.13.10 4.2.7.3[id number] [facility] 2022-03-31 22:46:00 2022-04-01 01:29:00 Emergency X DEONNA MELENDREZ [facility] ERT [id number] [facility] 2022-03-31 22:46:00 2022-04-01 01:29:00 Emergency Deonna Melendrez 1.2.840.1 20271.1.1 3.104.2.7 .3.865876 .[id number] [facility] 2022-03-31 00:00:00 2022-03-31 00:00:00 Orders Only Doctor Unassigned, [place] 1.2.840.1 96582.1.1 3.104.2.7 .3.841249 .[id number] [facility] 2022-03-31 00:00:00 2022-03-31 00:00:00 Travel 1.2.840.1 60524.1.1 3.104.2.7 .3.859202 .8 1.2.840.114 350.1.13.10 4[address]7.3[id number] [facility] 2022-03-28 10:15:00 2022-03-28 12:05:24 Outpatient R JAMES JACOBS [facility] [id number] [facility] 2022-03-28 00:00:00 2022-03-28 00:00:00 Travel 1.2.840.1 78198.1.1 3.104.2.7 .3.042334 .8 1.2.840.114 350.1.13.10 [id number] [facility] 2022-03-17 11:30:00 2022-03-17 12:25:54 Imm/Inj Visit Vignesh Mack [facility] 1.2.840.1 81458.1.1 3.104.2.7 .3.825556 .[id number] [facility] 2022-03-17 10:30:00 2022-03-17 11:13:04 Outpatient R VIGNESH MACK [facility] [id number] [facility] 2022-03-17 00:00:00 2022-03-17 00:00:00 Travel 1.2.840.1 07742.1.1 3.104.2.7 .3.633963 .8 1.2.840.114 350.1.13.10 [address]7.[id number] [facility] 2022-02-24 13:02:19 2022-02-24 23:59:00 Hospital Encounter Bouchra Mcintosh 1.2.840.1 68483.1.1 3.104.2.7 .3.220899 .[id number] [facility] 2022-02-24 13:02:19 2022-02-24 23:59:00 Hospital Encounter Bouchra Mcintosh 1.2.840.1 86058.1.1 3.104.2.7 .3.607793 .[id number] [facility] 2022-02-24 13:00:00 2022-02-24 14:33:28 Outpatient BOUCHRA PATEL [facility] [id number] [facility] 2022-02-24 13:00:00 2022-02-24 14:33:28 Office Visit Bouchra Mcintosh 1.2.840.1 94637.1.1 3.104.2.7 .3.248722 .[id number] [facility] 2022-02-24 13:00:00 2022-02-24 13:00:00 Outpatient BOUCHAR PATEL [facility] [id number] [facility] 2022-02-24 00:00:00 2022-02-24 00:00:00 Travel 1.2.840.1 64026.1.1 3.104.2.7 .3.398248 .8 1.2.840.114 350.1.13.10 [address]7.3[id number] [facility] 2022-02-22 00:00:00 2022-02-22 00:00:00 Orders Only Doctor Unassigned, [place] 1.2.840.1 07171.1.1 3.104.2.7 .3.432255 .[id number] [facility] 2022-02-22 00:00:00 2022-02-22 00:00:00 Orders Only Doctor Unassigned, [place] 1.2.840.1 12273.1.1 3.104.2.7 .3.440398 .[id number] [facility] 2022-02-21 08:00:00 2022-02-21 08:48:33 Outpatient R JAMES JACOBS [facility] [id number] [facility] 2022-02-21 00:00:00 2022-02-21 00:00:00 Travel 1.2.840.1 35494.1.1 3.104.2.7 .3.683551 .8 1.2.840.114 350.1.13.10 [id number] [facility] 2022-02-21 00:00:00 2022-02-21 00:00:00 Travel 1.2.840.1 63621.1.1 3.104.2.7 .3.664851 .8 1.2.840.114 350.1.13.10 4.2.7.3[id number] [facility] 2022-01-23 19:42:00 2022-01-23 21:04:00 Emergency X Kitty KESSLER [facility] ERT [id number] [facility] 2022-01-23 19:42:00 2022-01-23 21:04:00 Emergency Kitty Kessler 1.2.840.1 12666.1.1 3.104.2.7 .3.091464 .[id number] [facility] 2022-01-23 19:42:00 2022-01-23 21:04:00 Emergency Kitty Kessler 1.2.840.1 82592.1.1 3.104.2.7 .3.719783 .[id number] [facility] 2022-01-23 00:00:00 2022-01-23 00:00:00 Travel 1.2.840.1 65777.1.1 3.104.2.7 .3.003700 .8 1.2.840.114 350.1.13.10 [id number] [facility] 2022-01-23 00:00:00 2022-01-23 00:00:00 Travel 1.2.840.1 22575.1.1 3.104.2.7 .3.976371 .8 1.2.840.114 350.1.13.10 4.2.7.3[id number] [facility] 2022-01-17 10:15:00 2022-01-17 11:23:04 [facility] [id number] [facility] 2022-01-17 10:15:00 2022-01-17 11:23:04 [facility] [id number] [facility] 2022-01-17 00:00:00 2022-01-17 00:00:00 Travel 1.2.840.1 79015.1.1 3.104.2.7 .3.412332 .8 1.2.840.114 350.1.13.10 4.[address]7.3[id number] [facility] 2022-01-17 00:00:00 2022-01-17 00:00:00 Travel 1.2.840.1 36426.1.1 3.104.2.7 .3.107938 .8 1.2.840.114 350.1.13.10 4.2.7.3[id number] [facility] 2021-12-31 16:00:00 2021-12-31 17:22:54 Outpatient R ASH RAMIREZ [facility] [id number] [facility] 2021-12-31 16:00:00 2021-12-31 17:22:54 Office Visit Ash Ramirez Vivian L 1.2.840.1 42234.1.1 3.104.2.7 .3.885695 .[id number] [facility] 2021-12-31 16:00:00 2021-12-31 17:22:54 Office Visit Ash Ramirez Vivian L 1.2.840.1 81970.1.1 3.104.2.7 .3.901977 .[id number] [facility] 2021-12-31 16:00:00 2021-12-31 16:00:00 Outpatient R ASH RAMIREZ [facility] [id number] [facility] 2021-12-31 00:00:00 2021-12-31 00:00:00 Travel 1.2.840.1 14039.1.1 3.104.2.7 .3.206582 .8 1.2.840.114 350.1.13.10 4[address]7.[id number] [facility] 2021-12-31 00:00:00 2021-12-31 00:00:00 Travel 1.2.840.1 21017.1.1 3.104.2.7 .3.879145 .8 1.2.840.114 350.1.13.10 4[address]7.3[id number] [facility] 2021-12-20 10:30:00 2021-12-20 11:58:18 Outpatient R REYNALDO JAMES [facility] [id number] [facility] 2021-12-20 00:00:00 2021-12-20 00:00:00 Travel 1.2.840.1 97899.1.1 3.104.2.7 .3.063722 .8 1.2.840.114 350.1.13.10 4[address]7.3[id number] [facility] 2021-12-20 00:00:00 2021-12-20 00:00:00 Travel 1.2.840.1 70715.1.1 3.104.2.7 .3.410061 .8 1.2.840.114 350.1.13.10 4.2[address]7.3[id number] [facility] 2021-12-20 00:00:00 2021-12-20 00:00:00 Travel 1.2.840.1 52162.1.1 3.104.2.7 .3.166739 .8 1.2.840.114 350.1.13.10 4[address]7.3[id number] [facility] 2021-12-13 08:00:00 2021-12-13 08:00:00 Outpatient HANDY BOWMAN [facility] [id number] [facility] 2021-12-06 12:00:00 2021-12-06 12:16:45 Urgent Care Shivani Guerra Amanda 1.2.840.1 28663.1.1 3.104.2.7 .3.870006 .[id number] [facility] 2021-12-06 12:00:00 2021-12-06 12:16:45 Urgent Care Shivani Guerra Amanda 1.2.840.1 54742.1.1 3.104.2.7 .3.868580 .[id number] [facility] 2021-12-06 12:00:00 2021-12-06 12:16:45 Outpatient AKIKO CALLEJAS [facility] [id number] [facility] 2021-12-06 12:00:00 2021-12-06 12:16:45 Urgent Care Shivani Guerra Amanda 1.2.840.1 51617.1.1 3.104.2.7 .3.115441 .[id number] [facility] 2021-12-06 00:00:00 2021-12-06 00:00:00 Travel 1.2.840.1 95086.1.1 3.104.2.7 .3.858716 .8 1.2.840.114 350.1.13.10 4[address]7.[id number] [facility] 2021-12-06 00:00:00 2021-12-06 00:00:00 Travel 1.2.840.1 40331.1.1 3.104.2.7 .3.904959 .8 1.2.840.114 350.1.13.10 4.2.7.3[id number] [facility] 2021-12-06 00:00:00 2021-12-06 00:00:00 Travel 1.2.840.1 84771.1.1 3.104.2.7 .3.159460 .8 1.2.840.114 350.1.13.10 4.2.7.[id number] [facility] 2021-11-26 15:00:00 2021-11-26 15:40:48 Office Visit JamesDequann 1.2.840.1 05969.1.1 3.104.2.7 .3.436826 .[id number] [facility] 2021-11-26 15:00:00 2021-11-26 15:40:48 Outpatient R JAMES ASH [facility] [id number] [facility] 2021-11-26 15:00:00 2021-11-26 15:40:48 Office Visit JamesDequann 1.2.840.1 61366.1.1 3.104.2.7 .3.353431 .[id number] [facility] 2021-11-26 15:00:00 2021-11-26 15:00:00 Outpatient ASH ROWLEY [facility] [id number] [facility] 2021-11-26 00:00:00 2021-11-26 00:00:00 Travel 1.2.840.1 37033.1.1 3.104.2.7 .3.629795 .8 1.2.840.114 350.1.13.[id number] [facility] 2021-11-26 00:00:00 2021-11-26 00:00:00 Travel 1.2.840.1 61363.1.1 3.104.2.7 .3.146903 .8 1.2.840.114 350.1.13.10 [address]7.[id number] [facility] 2021-11-23 14:00:00 2021-11-23 14:00:00 Outpatient ASH [facility] [id number] [facility] 2021-11-19 17:58:13 2021-11-19 23:59:00 Hospital Encounter Vania Em 1.2.840.1 64220.1.1 3.104.2.7 .3.392131 .[id number] [facility] 2021-11-19 17:58:13 2021-11-19 23:59:00 Outpatient R VANIA EM [facility] [id number] [facility] 2021-11-19 17:58:13 2021-11-19 23:59:00 Hospital Encounter Vania Em [facility] 1.2.840.114 350.1.13.10 4.2.7.2.[id number] [facility] 2021-11-19 17:58:13 2021-11-19 23:59:00 Hospital Encounter Vania Em 1.2.840.1 19291.1.1 3.104.2.7 .3.076268 .[id number] [facility] 2021-11-19 17:20:00 2021-11-19 18:04:46 Urgent Care Vania Em 1.2.840.1 29681.1.1 3.104.2.7 .3.274192 .[id number] [facility] 2021-11-19 17:20:00 2021-11-19 18:04:46 Urgent Care Vania Em [facility] 1.2.840.114 350.1.13.10 4.2.7.2.[id number] [facility] 2021-11-19 17:20:00 2021-11-19 18:04:46 Urgent Care Vania mE 1.2.840.1 74647.1.1 3.104.2.7 .3.734229 .[id number] [facility] 2021-11-19 00:00:00 2021-11-19 00:00:00 Travel 1.2.840.1 70222.1.1 3.104.2.7 .3.096675 .8 1.2.840.114 350.1.13.[id number] [facility] 2021-11-19 00:00:00 2021-11-19 00:00:00 Travel 1.2.840.1 63913.1.1 3.104.2.7 .3.062510 .8 1.2.840.114 350.1.13.10 4[address]7.3[id number] [facility] 2021-11-17 14:45:00 2021-11-17 14:45:00 Outpatient LUCINDA PHAN [facility] [id number] [facility] 2021-11-17 14:45:00 2021-11-17 14:45:00 Outpatient R LUCINDA WILLS [facility] [id number] [facility] 2021-11-16 00:00:00 2021-11-16 00:00:00 Telephone Lucinda Wills 1.2.840.1 24990.1.1 3.104.2.7 .3.330627 .[id number] [facility] 2021-11-16 00:00:00 2021-11-16 00:00:00 Telephone Lucinda Wills 1.2.840.1 14251.1.1 3.104.2.7 .3.551828 .[id number] [facility] 2021-11-16 00:00:00 2021-11-16 00:00:00 Telephone Lucinda Wills Cam 1.2.840.1 05273.1.1 3.104.2.7 .3.743945 .[id number] [facility] 2021-11-08 11:15:00 2021-11-08 11:40:32 Outpatient R JAMES JACOBS [facility] [id number] [facility] 2021-11-08 00:00:00 2021-11-08 00:00:00 Travel 1.2.840.1 55620.1.1 3.104.2.7 .3.233237 .8 1.2.840.114 350.1.13.10 [id number] [facility] 2021-11-08 00:00:00 2021-11-08 00:00:00 Travel 1.2.840.1 28791.1.1 3.104.2.7 .3.360191 .8 1.2.840.114 350.1.13.10 4.2.7.3[id number] [facility] 2021-11-08 00:00:00 2021-11-08 00:00:00 Travel 1.2.840.1 75365.1.1 3.104.2.7 .3.590289 .8 1.2.840.114 350.1.13.10 4.2[address]7.3[id number] [facility] 2021-10-29 13:00:00 2021-10-29 13:28:21 Office Visit Lucinda Wills 1.2.840.1 97269.1.1 3.104.2.7 .3.265507 .[id number] [facility] 2021-10-29 13:00:00 2021-10-29 13:28:21 Office Visit Lucinda Wills 1.2.840.1 04811.1.1 3.104.2.7 .3.424129 .[id number] [facility] 2021-10-29 13:00:00 2021-10-29 13:28:21 Outpatient R LUCINDA WILLS [facility] [id number] [facility] 2021-10-29 13:00:00 2021-10-29 13:28:21 Office Visit Lucinda Wills 1.2.840.1 48436.1.1 3.104.2.7 .3.400094 .[id number] [facility] 2021-10-29 13:00:00 2021-10-29 13:00:00 Outpatient R OLGA WILLSEN [facility] [id number] [facility] 2021-10-29 13:00:00 2021-10-29 13:00:00 Outpatient R OLGA WILLSEN [facility] [id number] [facility] 2021-10-29 00:00:00 2021-10-29 00:00:00 Travel 1.2.840.1 23511.1.1 3.104.2.7 .3.917583 .8 1.2.840.114 350.1.13.10 [address]7.[id number] [facility] 2021-10-29 00:00:00 2021-10-29 00:00:00 Travel 1.2.840.1 72857.1.1 3.104.2.7 .3.514439 .8 1.2.840.114 350.1.13.10 [address]7.3[id number] [facility] 2021-10-29 00:00:00 2021-10-29 00:00:00 Travel 1.2.840.1 90857.1.1 3.104.2.7 .3.776329 .8 1.2.840.114 350.1.13.10 [address]7.3[id number] [facility] 2021-10-27 14:30:00 2021-10-27 15:05:35 Outpatient SHIVANI HARDING [facility] [id number] [facility] 2021-10-27 14:30:00 2021-10-27 14:30:00 Outpatient SHIVANI HARDING [facility] [id number] [facility] 2021-10-27 12:30:00 2021-10-27 12:45:00 Campus Security Director Visit [facility] 1.2.840.1 61485.1.1 3.104.2.7 .3.995182 .[id number] [facility] 2021-10-27 12:30:00 2021-10-27 12:45:00 Campus Security Director Visit Pat [facility] 1.2.840.1 43566.1.1 3.104.2.7 .3.540825 .[id number] [facility] 2021-10-27 12:30:00 2021-10-27 12:45:00 Campus Security Director Visit Pat [facility] 1.2.840.1 79041.1.1 3.104.2.7 .3.404310 .[id number] [facility] 2021-10-27 12:30:00 2021-10-27 12:45:00 Campus Security Director Visit Pat [facility] 1.2.840.1 42121.1.1 3.104.2.7 .3.975591 .[id number] [facility] 2021-10-27 00:00:00 2021-10-27 00:00:00 Travel 1.2.840.1 78382.1.1 3.104.2.7 .3.906783 .8 1.2.840.114 350.1.13.10 [address]7.3[id number] [facility] 2021-10-27 00:00:00 2021-10-27 00:00:00 Travel 1.2.840.1 51289.1.1 3.104.2.7 .3.143749 .8 1.2.840.114 350.1.13.10 4.2.7.3[id number] [facility] 2021-10-27 00:00:00 2021-10-27 00:00:00 Travel 1.2.840.1 79379.1.1 3.104.2.7 .3.662215 .8 1.2.840.114 350.1.13.10 [address]7.3[id number] [facility] 2021-10-27 00:00:00 2021-10-27 00:00:00 Travel 1.2.840.1 64847.1.1 3.104.2.7 .3.375752 .8 1.2.840.114 350.1.13.10 4.2.7.3.[id number] [facility] 2021-10-06 15:15:00 2021-10-06 16:31:02 Outpatient SHIVANI HARDING [facility] [id number] [facility] 2021-10-06 00:00:00 2021-10-06 00:00:00 Travel 1.2.840.1 85943.1.1 3.104.2.7 .3.299340 .8 1.2.840.114 350.1.13.10 4[address]7.3[id number] [facility] 2021-10-06 00:00:00 2021-10-06 00:00:00 Travel 1.2.840.1 88580.1.1 3.104.2.7 .3.436633 .8 1.2.840.114 350.1.13.10 [address].7.3[id number] [facility] 2021-10-06 00:00:00 2021-10-06 00:00:00 Travel 1.2.840.1 92929.1.1 3.104.2.7 .3.529354 .8 1.2.840.114 350.1.13.10 4[address]2.7.3.[id number] [facility] 2021-09-13 11:00:00 2021-09-13 11:00:00 Outpatient JAMES MCINTOSH [facility] [id number] [facility] 2021-09-02 13:00:00 2021-09-02 13:00:00 Outpatient HONORIO GERMAN [facility] [id number] [facility] 2021-09-02 13:00:00 2021-09-02 13:00:00 Outpatient HONORIO GERMAN [facility] [id number] [facility] 2021-09-02 00:00:00 2021-09-02 00:00:00 Travel 1.2.840.1 58311.1.1 3.104.2.7 .3.980550 .8 1.2.840.114 350.1.13.10 [address]7.3[id number] [facility] 2021-09-02 00:00:00 2021-09-02 00:00:00 Travel 1.2.840.1 82476.1.1 3.104.2.7 .3.826705 .8 1.2.840.114 350.1.13.10 4.2.7.3.[id number] [facility] 2021-09-02 00:00:00 2021-09-02 00:00:00 Travel 1.2.840.1 25173.1.1 3.104.2.7 .3.919063 .8 1.2.840.114 350.1.13.10 4.2.7.3.[id number] [facility] 2021-08-26 12:59:32 2021-08-26 23:59:00 Outpatient R ARNALDO BOUCHRA [facility] [id number] [facility] 2021-08-26 12:59:32 2021-08-26 23:59:00 Hospital Encounter ArnaldoBouchra arana 1.2.840.1 32829.1.1 3.104.2.7 .3.049686 .[id number] [facility] 2021-08-26 12:59:32 2021-08-26 23:59:00 Hospital Encounter Bouchra Mcintosh 1.2.840.1 21319.1.1 3.104.2.7 .3.713516 .[id number] [facility] 2021-08-26 12:59:32 2021-08-26 23:59:00 Hospital Encounter Bouchra Mcintosh 1.2.840.1 35465.1.1 3.104.2.7 .3.171073 .[id number] [facility] 2021-08-26 13:00:00 2021-08-26 13:47:55 Outpatient R BOUCHRA MCINTOSH [facility] [id number] [facility] 2021-08-26 13:00:00 2021-08-26 13:47:55 Office Visit Bouchra Mcintosh 1.2.840.1 04541.1.1 3.104.2.7 .3.531944 .[id number] [facility] 2021-08-26 13:00:00 2021-08-26 13:47:55 Outpatient R BOUCHRA CMINTOSH [facility] [id number] [facility] 2021-08-26 13:00:00 2021-08-26 13:47:55 Office Visit Bouchra Mcintosh 1.2.840.1 75893.1.1 3.104.2.7 .3.763436 .[id number] [facility] 2021-08-26 00:00:00 2021-08-26 00:00:00 Travel 1.2.840.1 69463.1.1 3.104.2.7 .3.579370 .8 1.2.840.114 350.1.13.10 [address]7.3[id number] [facility] 2021-08-26 00:00:00 2021-08-26 00:00:00 Travel 1.2.840.1 26395.1.1 3.104.2.7 .3.591517 .8 1.2.840.114 350.1.13.10 [address].7.3[id number] [facility] 2021-08-26 00:00:00 2021-08-26 00:00:00 Travel 1.2.840.1 09542.1.1 3.104.2.7 .3.759859 .8 1.2.840.114 350.1.13.10 4.2.7.3.[id number] [facility] 2021-08-03 17:15:00 2021-08-03 17:30:00 Campus Security Director Visit Pob, Adc Lab Main Living[place] blackmonberly [facility] DEDRA NARVAEZIO [facility] 1.2.840.114 350.1.13.10 4.2.7.2.[id number] [facility] 2021-08-03 17:15:00 2021-08-03 17:30:00 Campus Security Director Visit RoderickThu blackmonberly Pob, Adc Lab Main 1.2.840.1 47552.1.1 3.104.2.7 .3.619210 .[id number] [facility] 2021-08-03 17:15:00 2021-08-03 17:30:00 Campus Security Director Visit LivingstonThu blackmonberly Mosheb, Adc Lab Main 1.2840.1 46502.1.1 3.104.2.7 .3.899545 .[id number] [facility] 2021-08-03 17:15:00 2021-08-03 17:15:00 Outpatient R RODERICK SHIVANI VAUGHN SHIVANI [facility] [id number] [facility] 2021-08-02 10:15:00 2021-08-02 11:07:50 Outpatient R JAMES JACOBS [facility] [id number] [facility] 2021-08-02 00:00:00 2021-08-02 00:00:00 Travel 1.2.840.1 61087.1.1 3.104.2.7 .3.288385 .8 1.2.840.114 350.1.13.10 [address]7.3[id number] [facility] 2021-08-02 00:00:00 2021-08-02 00:00:00 Travel 1.2.840.1 91777.1.1 3.104.2.7 .3.437067 .8 1.2.840.114 350.1.13.10 4.2.7.3[id number] [facility] 2021-08-02 00:00:00 2021-08-02 00:00:00 Travel 1.2.840.1 41908.1.1 3.104.2.7 .3.554599 .8 1.2.840.114 350.1.13.10 4.2.7.3[id number] [facility] 2021-07-29 13:26:56 2021-07-29 23:59:00 Outpatient R BOUCHRA MCINTOSH [facility] [id number] [facility] 2021-07-29 13:26:56 2021-07-29 23:59:00 Hospital Encounter Bouchra Mcintosh 1.2.840.1 31580.1.1 3.104.2.7 .3.760738 .[id number] [facility] 2021-07-29 13:26:56 2021-07-29 23:59:00 Hospital Encounter Bouchra Mcintosh 1.2.840.1 27346.1.1 3.104.2.7 .3.636085 .[id number] [facility] 2021-07-29 13:26:56 2021-07-29 23:59:00 Hospital Encounter Bouchra Mcintosh 1.2.840.1 51040.1.1 3.104.2.7 .3.465343 .[id number] [facility] 2021-07-29 13:20:00 2021-07-29 15:16:49 Office Visit Bouchra Mcintosh [facility] 1.2.840.114 350.1.13.10 4.2.7.2.[id number] [facility] 2021-07-29 13:20:00 2021-07-29 15:16:49 Outpatient R BOUCHRA MCINTOSH [facility] [id number] [facility] 2021-07-29 13:20:00 2021-07-29 15:16:49 Office Visit Bouchra Mcintosh 1.2.840.1 71798.1.1 3.104.2.7 .3.576486 .[id number] [facility] 2021-07-29 13:20:00 2021-07-29 15:16:49 Office Visit ArnaldoBouchra arana 1.2.840.1 85455.1.1 3.104.2.7 .3.516940 .[id number] [facility] 2021-07-29 00:00:00 2021-07-29 00:00:00 Letter (Out) Bouchra Mcintosh 1.2.840.1 37308.1.1 3.104.2.7 .3.706621 .[id number] [facility] 2021-07-29 00:00:00 2021-07-29 00:00:00 Travel 1.2.840.1 65622.1.1 3.104.2.7 .3.937019 .8 1.2.840.114 350.1.13.10 [address]7.3[id number] [facility] 2021-07-29 00:00:00 2021-07-29 00:00:00 Letter (Out) Bouchra Mcintosh 1.2.840.1 00353.1.1 3.104.2.7 .3.523800 .[id number] [facility] 2021-07-29 00:00:00 2021-07-29 00:00:00 Travel 1.2.840.1 27682.1.1 3.104.2.7 .3.955849 .8 1.2.840.114 350.1.13.10 [address]7.3[id number] [facility] 2021-07-29 00:00:00 2021-07-29 00:00:00 Letter (Out) Bouchra Mcintosh 1.2.840.1 94192.1.1 3.104.2.7 .3.039896 .[id number] [facility] 2021-07-29 00:00:00 2021-07-29 00:00:00 Travel 1.2.840.1 08181.1.1 3.104.2.7 .3.710923 .8 1.2.840.114 350.1.13.10 [address]7.3[id number] [facility] 2021-07-22 14:00:00 2021-07-22 23:59:00 Hospital Encounter Zitaantonieta Alvinoya [facility] 1.2.840.114 350.1.13.10 4.2.7.2.[id number] [facility] 2021-07-22 14:00:00 2021-07-22 23:59:00 Hospital Encounter Ryan Payton 1.2.840.1 25303.1.1 3.104.2.7 .3.705755 .[id number] [facility] 2021-07-22 14:00:00 2021-07-22 23:59:00 Hospital Encounter Ryan Payton 1.2.840.1 83773.1.1 3.104.2.7 .3.095161 .[id number] [facility] 2021-07-22 14:00:00 2021-07-22 23:59:00 Hospital Encounter Ryan Payton 1.2.840.1 49208.1.1 3.104.2.7 .3.967786 .[id number] [facility] 2021-07-22 10:46:11 2021-07-22 13:59:00 Hospital Encounter Ryan Payton [facility] 1.2.840.114 350.1.13.10 4.2.7.2.[id number] [facility] 2021-07-22 10:46:11 2021-07-22 13:59:00 Hospital Encounter Ryan Payton 1.2.840.1 65279.1.1 3.104.2.7 .3.096193 .[id number] [facility] 2021-07-22 10:46:11 2021-07-22 13:59:00 Hospital Encounter Tata Ryan 1.2.840.1 00121.1.1 3.104.2.7 .3.387141 .[id number] [facility] 2021-07-22 10:46:11 2021-07-22 13:59:00 Hospital Encounter Tata Ryan 1.2.840.1 30520.1.1 3.104.2.7 .3.653563 .[id number] [facility] 2021-07-22 13:00:00 2021-07-22 13:45:02 Outpatient R HONORIO GALARZA [facility] [id number] [facility] 2021-07-22 13:00:00 2021-07-22 13:45:02 Outpatient HONORIO GERMAN [facility] [id number] [facility] 2021-07-22 13:00:00 2021-07-22 13:00:00 Outpatient HONORIO GERMAN [facility] [id number] [facility] 2021-07-22 10:15:00 2021-07-22 11:55:28 Office Visit Deloresvictorinakadiantonieta Ryan 1.2.840.1 20262.1.1 3.104.2.7 .3.929949 .[id number] [facility] 2021-07-22 10:15:00 2021-07-22 11:55:28 Outpatient R RYAN PAYTON [facility] [id number] [facility] 2021-07-22 10:15:00 2021-07-22 11:55:28 Office Visit Ryan Payton 1.2.840.1 71950.1.1 3.104.2.7 .3.801442 .[id number] [facility] 2021-07-22 10:15:00 2021-07-22 11:55:28 Office Visit Ryan Payton 1.2.840.1 14094.1.1 3.104.2.7 .3.725231 .[id number] [facility] 2021-07-22 10:46:11 2021-07-22 10:46:11 Outpatient R RYAN PAYTON [facility] [id number] [facility] 2021-07-22 10:15:00 2021-07-22 10:15:00 Outpatient R RYAN PAYTON [facility] [id number] [facility] 2021-07-22 10:15:00 2021-07-22 10:15:00 Outpatient R TATA [facility] [id number] [facility] 2021-07-22 00:00:00 2021-07-22 00:00:00 Abstract Ryan Payton 1.2.840.1 97058.1.1 3.104.2.7 .3.398875 .[id number] [facility] 2021-07-22 00:00:00 2021-07-22 00:00:00 Travel 1.2.840.1 51094.1.1 3.104.2.7 .3.065431 .8 1.2.840.114 350.1.13.10 [address]7.3[id number] [facility] 2021-07-22 00:00:00 2021-07-22 00:00:00 Letter (Out) Ryan Payton 1.2.840.1 88256.1.1 3.104.2.7 .3.665137 .[id number] [facility] 2021-07-22 00:00:00 2021-07-22 00:00:00 Letter (Out) Tata Ryan 1.2.840.1 14272.1.1 3.104.2.7 .3.678572 .[id number] [facility] 2021-07-22 00:00:00 2021-07-22 00:00:00 Travel 1.2.840.1 05447.1.1 3.104.2.7 .3.476617 .8 1.2.840.114 350.1.13.10 [address]7.[id number] [facility] 2021-07-22 00:00:00 2021-07-22 00:00:00 Abstract Ryan Payton 1.2.840.1 81885.1.1 3.104.2.7 .3.700371 .[id number] [facility] 2021-07-22 00:00:00 2021-07-22 00:00:00 Letter (Out) Ryan Payton 1.2.840.1 67142.1.1 3.104.2.7 .3.985431 .[id number] [facility] 2021-07-22 00:00:00 2021-07-22 00:00:00 Travel 1.2.840.1 39840.1.1 3.104.2.7 .3.247785 .8 1.2.840.114 350.1.13.10 [id number] [facility] 2021-07-22 00:00:00 2021-07-22 00:00:00 Abstract Yamilexkadiantonieta Ryan 1.2.840.1 35881.1.1 3.104.2.7 .3.774899 .[id number] [facility] 2021-07-22 00:00:00 2021-07-22 00:00:00 Letter (Out) Ryan Payton 1.2.840.1 34213.1.1 3.104.2.7 .3.079327 .[id number] [facility] 2021-07-22 00:00:00 2021-07-22 00:00:00 Travel 1.2.840.1 35167.1.1 3.104.2.7 .3.253255 .8 1.2.840.114 350.1.13.[id number] [facility] 2021-07-22 00:00:00 2021-07-22 00:00:00 Abstract Ryan Payton 1.2.840.1 46465.1.1 3.104.2.7 .3.328001 .[id number] [facility] 2021-07-21 14:30:00 2021-07-21 15:30:35 Outpatient [facility] [id number] [facility] 2021-07-21 14:30:00 2021-07-21 15:30:35 Outpatient SHIVANI HARDING KIMBERLY [facility] [id number] [facility] 2021-07-21 14:30:00 2021-07-21 14:30:00 Outpatient SHIVANI [facility]ARDING [facility] [id number] [facility] 2021-07-15 00:00:00 2021-07-15 00:00:00 Orders Only Doctor Unassigned, [place] 1.2.840.1 20092.1.1 3.104.2.7 .3.109623 .[id number] [facility] 2021-07-15 00:00:00 2021-07-15 00:00:00 Orders Only Doctor Unassigned, [place] 1.2.840.1 40974.1.1 3.104.2.7 .3.171103 .[id number] [facility] 2021-07-15 00:00:00 2021-07-15 00:00:00 Orders Only Doctor Unassigned, [place] 1.2.840.1 43577.1.1 3.104.2.7 .3.346463 .[id number] [facility] 2021-07-15 00:00:00 2021-07-15 00:00:00 Orders Only Doctor Unassigned, [place] 1.2.840.1 21591.1.1 3.104.2.7 .3.620380 .[id number] [facility] 2021-07-09 12:46:00 2021-07-09 12:46:00 Emergency [facility] [id number] 14 [facility] 2021-07-08 13:00:00 2021-07-08 13:00:00 Outpatient HONORIO GERMAN [facility] [id number] [facility] 2021-07-08 13:00:00 2021-07-08 13:00:00 Outpatient HONORIO GERMAN [facility] [id number] [facility] 2021-06-30 00:00:00 2021-06-30 00:00:00 Telephone Jerry Whitten 1.2.840.1 05761.1.1 3.104.2.7 .3.456072 .[id number] [facility] 2021-06-30 00:00:00 2021-06-30 00:00:00 Telephone Jerry Whitten 1.2.840.1 51592.1.1 3.104.2.7 .3.775320 .[id number] [facility] 2021-06-30 00:00:00 2021-06-30 00:00:00 Telephone Jerry Whitten 1.2.840.1 94974.1.1 3.104.2.7 .3.157714 .[id number] [facility] 2021-06-30 00:00:00 2021-06-30 00:00:00 Telephone Jerry Whitten 1.2.840.1 56083.1.1 3.104.2.7 .3.127775 .[id number] [facility] 2021-06-24 16:30:00 2021-06-24 16:40:00 Imm/Inj Visit Nurse, Pcp Immunizatio n Gideon Montez [facility] 1.2.840.114 350.1.13.10 4.2.7.2.[id number] [facility] 2021-06-24 16:30:00 2021-06-24 16:40:00 Imm/Inj Visit Gideon Montez Nurse, Pcp Immunizatio n 1.2.840.1 67809.1.1 3.104.2.7 .3.041717 .[id number] [facility] 2021-06-24 16:30:00 2021-06-24 16:40:00 Imm/Inj Visit Gideon Montez Nurse, Pcp Immunizatio n 1.2.840.1 26770.1.1 3.104.2.7 .3.780573 .[id number] [facility] 2021-06-24 16:30:00 2021-06-24 16:40:00 Imm/Inj Visit Gideon Montez Nurse, Pcp Immunizatio n 1.2.840.1 41896.1.1 3.104.2.7 .3.678055 .[id number] [facility] 2021-06-24 16:30:00 2021-06-24 16:40:00 Imm/Inj Visit Gideon Montez Nurse, Pcp Immunizatio n 1.2.840.1 86939.1.1 3.104.2.7 .3.076952 .[id number] [facility] 2021-06-24 16:30:00 2021-06-24 16:30:00 Outpatient R GIDEON MONTEZ [facility] [id number] [facility] 2021-06-24 16:15:00 2021-06-24 16:30:00 Campus Security Director Visit Pcp-Lab Bethel Isaacs [facility] 1.2.840.114 350.1.13.10 4.2.7.2.[id number] [facility] 2021-06-24 16:15:00 2021-06-24 16:30:00 Campus Security Director Visit Bethel Isaacs Pcp-Lab 1.2.840.1 36203.1.1 3.104.2.7 .3.674129 .[id number] [facility] 2021-06-24 16:15:00 2021-06-24 16:30:00 Campus Security Director Visit Bethel Isaacs Pcp-Lab 1.2.840.1 48686.1.1 3.104.2.7 .3.555208 .[id number] [facility] 2021-06-24 16:15:00 2021-06-24 16:30:00 Campus Security Director Visit Bethel Isaacs Pcp-Lab 1.2.840.1 73589.1.1 3.104.2.7 .3.431815 .[id number] [facility] 2021-06-24 16:15:00 2021-06-24 16:30:00 Campus Security Director Visit Bethel Isaacs Pcp-Lab 1.2.840.1 83683.1.1 3.104.2.7 .3.235341 .[id number] [facility] 2021-06-24 16:15:00 2021-06-24 16:15:00 Outpatient R BETHEL ISAACS [facility] [id number] [facility] 2021-06-24 14:40:00 2021-06-24 16:08:00 Outpatient R BETHEL ISAACS [facility] [id number] [facility] 2021-06-24 14:40:00 2021-06-24 16:08:00 Office Visit IsaacsBethel [facility], Tg Hormone 1.2.840.1 31525.1.1 3.104.2.7 .3.205333 .[id number] [facility] 2021-06-24 14:40:00 2021-06-24 16:08:00 Outpatient R BETHEL ISAACS [facility] [id number] [facility] 2021-06-24 14:40:00 2021-06-24 16:08:00 Office Visit Bethel Isaacs [facility], Tg Hormone 1.2.840.1 36933.1.1 3.104.2.7 .3.547323 .[id number] [facility] 2021-06-24 14:40:00 2021-06-24 16:08:00 Office Visit IsaacsBethel, Tg Hormone 1.2.840.1 75785.1.1 3.104.2.7 .3.230242 .[id number] [facility] 2021-06-24 14:40:00 2021-06-24 16:08:00 Office Visit IsaacsBethel [facility], Tg Hormone 1.2.840.1 16846.1.1 3.104.2.7 .3.241450 .[id number] [facility] 2021-06-24 14:40:00 2021-06-24 14:40:00 Outpatient R ISAACSBETHEL [facility] [id number] [facility] 2021-06-24 00:00:00 2021-06-24 00:00:00 Travel 1.2.840.1 47384.1.1 3.104.2.7 .3.063573 .8 1.2.840.114 350.1.13.10 4[address]7.3[id number] [facility] 2021-06-24 00:00:00 2021-06-24 00:00:00 Travel 1.2.840.1 05374.1.1 3.104.2.7 .3.954735 .8 1.2.840.114 350.1.13.10 4[address]7.[id number] [facility] 2021-06-24 00:00:00 2021-06-24 00:00:00 Travel 1.2.840.1 83023.1.1 3.104.2.7 .3.960667 .8 1.2.840.114 350.1.13.10 4.2.7.3[id number] [facility] 2021-06-24 00:00:00 2021-06-24 00:00:00 Travel 1.2.840.1 71890.1.1 3.104.2.7 .3.288312 .8 1.2.840.114 350.1.13.10 4.2.7.3[id number] [facility] 2021-06-17 16:00:00 2021-06-17 16:15:00 Campus Security Director Visit SelfJames Pcp-Lab 1.2.840.1 48805.1.1 3.104.2.7 .3.603170 .[id number] [facility] 2021-06-17 16:00:00 2021-06-17 16:15:00 Campus Security Director Visit SelfJames Pcp-Lab 1.2.840.1 74409.1.1 3.104.2.7 .3.174613 .[id number] [facility] 2021-06-17 16:00:00 2021-06-17 16:15:00 Campus Security Director Visit Self, James Pcp-Lab 1.2.840.1 10941.1.1 3.104.2.7 .3.376268 .[id number] [facility] 2021-06-17 16:00:00 2021-06-17 16:15:00 Campus Security Director Visit Self, James Pcp-Lab 1.2.840.1 88902.1.1 3.104.2.7 .3.146541 .[id number] [facility] 2021-06-17 16:00:00 2021-06-17 16:15:00 Campus Security Director Visit Self, James Pcp-Lab 1.2.840.1 38772.1.1 3.104.2.7 .3.561209 .[id number] [facility] 2021-06-17 14:00:00 2021-06-17 14:00:00 Outpatient HONORIO GERMAN [facility] [id number] [facility] 2021-06-17 14:00:00 2021-06-17 14:00:00 Outpatient HONORIO GERMAN [facility] [id number] [facility] 2021-06-17 00:00:00 2021-06-17 00:00:00 Travel 1.2.840.1 72448.1.1 3.104.2.7 .3.260786 .8 1.2.840.114 350.1.13.10 4[address]7.[id number] [facility] 2021-06-17 00:00:00 2021-06-17 00:00:00 Travel 1.2.840.1 03034.1.1 3.104.2.7 .3.449554 .8 1.2.840.114 350.1.13.10 4.2.7.3[id number] [facility] 2021-06-17 00:00:00 2021-06-17 00:00:00 Travel 1.2.840.1 07308.1.1 3.104.2.7 .3.391025 .8 1.2.840.114 350.1.13.10 4[address].7.[id number] [facility] 2021-06-17 00:00:00 2021-06-17 00:00:00 Travel 1.2.840.1 01990.1.1 3.104.2.7 .3.567728 .8 1.2.840.114 350.1.13.10 [address]7.3[id number] [facility] 2021-06-17 00:00:00 2021-06-17 00:00:00 Travel 1.2.840.1 16690.1.1 3.104.2.7 .3.505654 .8 1.2.840.114 350.1.13.10 [address]7.3[id number] [facility] 2021-06-14 11:00:00 2021-06-14 12:13:42 Outpatient JAMES MCINTOSH [facility] [id number] [facility] 2021-06-14 00:00:00 2021-06-14 00:00:00 Travel 1.2.840.1 49591.1.1 3.104.2.7 .3.998115 .8 1.2.840.114 350.1.13.10 4.2.7.3[id number] [facility] 2021-06-14 00:00:00 2021-06-14 00:00:00 Travel 1.2.840.1 35609.1.1 3.104.2.7 .3.086001 .8 1.2.840.114 350.1.13.10 4.2.7.3[id number] [facility] 2021-06-14 00:00:00 2021-06-14 00:00:00 Travel 1.2.840.1 84470.1.1 3.104.2.7 .3.059810 .8 1.2.840.114 350.1.13.10 4.2.7.3[id number] [facility] 2021-06-14 00:00:00 2021-06-14 00:00:00 Travel 1.2.840.1 91843.1.1 3.104.2.7 .3.546780 .8 1.2.840.114 350.1.13.10 [address]7.3[id number] [facility] 2021-06-10 00:00:00 2021-06-10 00:00:00 Patient Outreach BurtonBritt 1.2.840.1 67837.1.1 3.104.2.7 .3.580067 .[id number] [facility] 2021-06-10 00:00:00 2021-06-10 00:00:00 Patient Outreach Britt Burton 1.2.840.1 66894.1.1 3.104.2.7 .3.653626 .[id number] [facility] 2021-06-10 00:00:00 2021-06-10 00:00:00 Patient Outreach Burton Britt J 1.2.840.1 10629.1.1 3.104.2.7 .3.768390 .[id number] [facility] 2021-06-10 00:00:00 2021-06-10 00:00:00 Patient Outreach BurtonBritt 1.2.840.1 97671.1.1 3.104.2.7 .3.737871 .[id number] [facility] 2021-06-03 14:00:00 2021-06-03 14:22:42 Outpatient HONORIO GERMAN [facility] [id number] [facility] 2021-06-03 00:00:00 2021-06-03 00:00:00 Travel 1.2.840.1 09354.1.1 3.104.2.7 .3.386901 .8 1.2.840.114 350.1.13.10 [address]7.3[id number] [facility] 2021-06-03 00:00:00 2021-06-03 00:00:00 Travel 1.2.840.1 39654.1.1 3.104.2.7 .3.560984 .8 1.2.840.114 350.1.13.10 [address]7.3[id number] [facility] 2021-06-03 00:00:00 2021-06-03 00:00:00 Travel 1.2.840.1 39720.1.1 3.104.2.7 .3.971389 .8 1.2.840.114 350.1.13.10 [address]7.3[id number] [facility] 2021-06-03 00:00:00 2021-06-03 00:00:00 Travel 1.2.840.1 35933.1.1 3.104.2.7 .3.151858 .8 1.2.840.114 350.1.13.10 [address]7.3[id number] [facility] 2021-05-26 09:40:00 2021-05-26 23:59:00 Hospital Encounter Burke Beckett 1.2.840.1 63126.1.1 3.104.2.7 .3.253970 .[id number] [facility] 2021-05-26 09:40:00 2021-05-26 23:59:00 Hospital Encounter Burke Beckett 1.2.840.1 86468.1.1 3.104.2.7 .3.472117 .[id number] [facility] 2021-05-26 09:40:00 2021-05-26 23:59:00 Hospital Encounter Burke Beckett 1.2.840.1 12511.1.1 3.104.2.7 .3.345764 .[id number] [facility] 2021-05-26 00:00:00 2021-05-26 00:00:00 Outpatient R BURKE BECKETT [facility] NUT [id number] [facility] 2021-05-25 23:19:00 2021-05-25 23:19:00 Emergency [facility] [id number] [address] [place] [address] 2021-05-24 11:00:00 2021-05-24 11:31:18 Outpatient R PENNY JACOBSLER [facility] [id number] [facility] 2021-05-24 00:00:00 2021-05-24 00:00:00 Travel 1.2.840.1 59688.1.1 3.104.2.7 .3.110871 .8 1.2.840.114 350.1.13.10 [address]7.[id number] [facility] 2021-05-24 00:00:00 2021-05-24 00:00:00 Travel 1.2.840.1 82767.1.1 3.104.2.7 .3.957310 .8 1.2.840.114 350.1.13.10 [address]7.3[id number] [facility] 2021-05-24 00:00:00 2021-05-24 00:00:00 Travel 1.2.840.1 87497.1.1 3.104.2.7 .3.351093 .8 1.2.840.114 350.1.13.10 4[address]7.3[id number] [facility] 2021-05-10 08:45:00 2021-05-10 08:45:00 Outpatient JAMES MCINTOSH [facility] [id number] [facility] 2021-04-29 13:00:00 2021-04-29 13:33:16 Outpatient R HONORIO GALARZA [facility] [id number] [facility] 2021-04-29 13:00:00 2021-04-29 13:00:00 Outpatient R HONORIO GALARZA [facility] [id number] [facility] 2021-04-29 00:00:00 2021-04-29 00:00:00 Travel 1.2.840.1 95996.1.1 3.104.2.7 .3.076982 .8 1.2.840.114 350.1.13.10 4[address]7.3[id number] [facility] 2021-04-29 00:00:00 2021-04-29 00:00:00 Travel 1.2.840.1 84824.1.1 3.104.2.7 .3.830783 .8 1.2.840.114 350.1.13.10 4.2.7.3[id number] [facility] 2021-03-18 15:00:00 2021-03-18 15:00:00 Outpatient R HONORIO GALARZA [facility] [id number] [facility] 2021-03-18 00:00:00 2021-03-18 00:00:00 Travel 1.2.840.1 86037.1.1 3.104.2.7 .3.163774 .8 1.2.840.114 350.1.13.10 4[address]2.7.3[id number] [facility] 2021-03-15 10:15:00 2021-03-15 10:15:00 Outpatient JAMES MCINTOSH [facility] [id number] [facility] 2021-02-25 09:00:00 2021-02-25 09:00:00 Outpatient HONORIO GERMAN [facility] [id number] [facility] 2021-02-25 00:00:00 2021-02-25 00:00:00 Travel 1.2.840.1 09309.1.1 3.104.2.7 .3.870187 .8 1.2.840.114 350.1.13.10 4[address]2.7.3[id number] [facility] 2021-02-15 11:00:00 2021-02-15 11:00:00 Outpatient JAMES MCINTOSH [facility] [id number] [facility] 2021-02-15 00:00:00 2021-02-15 00:00:00 Travel 1.2.840.1 71778.1.1 3.104.2.7 .3.136587 .8 1.2.840.114 350.1.13.10 [address]7.3[id number] [facility] 2021-02-11 11:00:00 2021-02-11 11:00:00 Outpatient HONORIO GERMAN [facility] [id number] [facility] 2021-02-11 00:00:00 2021-02-11 00:00:00 Travel 1.2.840.1 06893.1.1 3.104.2.7 .3.514557 .8 1.2.840.114 350.1.13.10 [address]7.3[id number] [facility] 2021-01-28 13:53:29 2021-01-28 14:08:29 Campus Security Director Visit Paolo Casillas Pcp-Lab 1.2.840.1 06098.1.1 3.104.2.7 .3.274804 .[id number] [facility] 2021-01-28 13:00:00 2021-01-28 13:00:00 Outpatient R GEOVANNI HONORIO [facility] [id number] [facility] 2021-01-28 00:00:00 2021-01-28 00:00:00 Travel 1.2.840.1 52176.1.1 3.104.2.7 .3.102522 .8 1.2.840.114 350.1.13.10 [address]7.3[id number] [facility] 2021-01-25 09:30:00 2021-01-25 09:30:00 Outpatient JAMES MCINTOSH [facility] [id number] [facility] 2021-01-25 00:00:00 2021-01-25 00:00:00 Travel 1.2.840.1 50205.1.1 3.104.2.7 .3.108661 .8 1.2.840.114 350.1.13.10 [address]7.3[id number] [facility] 2021-01-13 16:00:00 2021-01-13 16:00:00 Outpatient JAMES MCINTOSH [facility] [id number] [facility] 2021-01-13 00:00:00 2021-01-13 00:00:00 Travel 1.2.840.1 35729.1.1 3.104.2.7 .3.208415 .8 1.2.840.114 350.1.13.[id number] [facility] 2020-12-31 16:38:39 2020-12-31 16:54:09 Campus Security Director Visit Tim Holguin Pcp-Lab 1.2.840.1 40885.1.1 3.104.2.7 .3.332266 .[id number] [facility] 2020-12-31 16:00:00 2020-12-31 16:00:00 Outpatient HONORIO GERMAN [facility] [id number] [facility] 2020-12-31 00:00:00 2020-12-31 00:00:00 Travel 1.2.840.1 57093.1.1 3.104.2.7 .3.878018 .8 1.2.840.114 350.1.13.10 [address]7.3[id number] [facility] 2020-12-28 00:00:00 2020-12-28 00:00:00 Orders Only Doctor Unassigned, [place] 1.2.840.1 22703.1.1 3.104.2.7 .3.893989 .[id number] [facility] 2020-12-24 11:00:00 2020-12-24 11:00:00 Outpatient TIM PAVON [facility] [id number] [facility] 2020-12-24 00:00:00 2020-12-24 00:00:00 Travel 1.2.840.1 03172.1.1 3.104.2.7 .3.012023 .8 1.2.840.114 350.1.13.10 [id number] [facility] 2020-12-17 11:00:00 2020-12-17 11:00:00 Outpatient HONORIO GERMAN [facility] [id number] [facility] 2020-11-26 16:00:00 2020-11-26 16:00:00 Outpatient HONORIO GERMAN [facility] [id number] [facility] 2020-11-26 00:00:00 2020-11-26 00:00:00 Travel 1.2.840.1 39557.1.1 3.104.2.7 .3.572284 .8 1.2.840.114 350.1.13.10 [address]7.3[id number] [facility] 2020-11-26 00:00:00 2020-11-26 00:00:00 Travel 1.2.840.1 16602.1.1 3.104.2.7 .3.015109 .8 1.2.840.114 350.1.13.10 [address]7.3[id number] [facility] 2020-11-21 10:04:35 2020-11-21 10:09:35 Imm/Inj Visit Gideon Montez ImmunizatiMikhail hess [facility] [employer] [facility] 1.2.840.1 03460.1.1 3.104.2.7 .3.555326 .[id number] [facility] 2020-11-21 10:05:00 2020-11-21 10:05:00 Outpatient R GIDEON MONTEZ [facility] [id number] [facility] 2020-11-17 15:45:00 2020-11-17 15:45:00 Outpatient CHELSY AGUIRRE [facility] [id number] [facility] 2020-[facility]-17 00:00:00 2020-11-17 00:00:00 Travel 1.2.840.1 02865.1.1 3.104.2.7 .3.808573 .8 1.2.840.114 350.1.13.10 [id number] [facility] 2020-11-16 00:00:00 2020-11-16 00:00:00 Orders Only Doctor Unassigned, [place] 1.2.840.1 93012.1.1 3.104.2.7 .3.130896 .[id number] [facility] 2020-11-12 08:00:00 2020-11-12 08:00:00 Outpatient HONORIO GERMAN [facility] [id number] [facility] 2020-11-12 00:00:00 2020-11-12 00:00:00 Travel 1.2.840.1 80383.1.1 3.104.2.7 .3.734025 .8 1.2.840.114 350.1.13.10 4.2.7.3[id number] [facility] 2020-10-29 09:30:00 2020-10-29 09:30:00 Outpatient TIM PAVON [facility] [id number] [facility] 2020-10-24 09:54:36 2020-10-24 10:09:56 Imm/Inj Visit Gio Martinez [facility] [employer] 1.2.840.1 12285.1.1 3.104.2.7 .3.043811 .[id number] [facility] 2020-10-24 10:00:00 2020-10-24 10:00:00 Outpatient GIO MARSHALL [facility] [id number] [facility] 2020-10-24 00:00:00 2020-10-24 00:00:00 Travel 1.2.840.1 80114.1.1 3.104.2.7 .3.681397 .8 1.2.840.114 350.1.13.10 [address]7.3[id number] [facility] 2020-09-25 23:49:00 2020-09-26 10:04:00 Emergency E ALAINA PARRY [facility] [id number] [facility] 2020-09-17 00:00:00 2020-09-17 00:00:00 Telephone Nilton Montes 1.2.840.1 18083.1.1 3.104.2.7 .3.065422 .[id number] [facility] 2020-08-18 15:00:00 2020-08-18 15:00:00 Outpatient R CHELSY ROMO [facility] [id number] [facility] 2020-07-08 12:55:33 2020-07-08 15:36:41 Office Visit Nilton Montes 1.2.840.1 76248.1.1 3.104.2.7 .3.703127 .[id number] [facility] 2020-07-08 13:30:00 2020-07-08 13:30:00 Outpatient Escobar NILTON MONTES PATRICIA [facility] [id number] [facility] 2020-07-08 00:00:00 2020-07-08 00:00:00 Orders Only Doctor Unassigned, [place] 1.2.840.1 39724.1.1 3.104.2.7 .3.231804 .[id number] [facility] 2020-07-08 00:00:00 2020-07-08 00:00:00 Letter (Out) Nilton Montes 1.2.840.1 88497.1.1 3.104.2.7 .3.439952 .[id number] [facility] 2020-05-21 10:15:00 2020-05-21 10:15:00 Outpatient DENA ALMEIDA [facility] [id number] [facility] 2020-05-21 00:00:00 2020-05-21 00:00:00 Orders Only Doctor Unassigned, [place] 1.2.840.1 46935.1.1 3.104.2.7 .3.159983 .[id number] [facility] 2020-04-24 16:00:00 2020-04-24 16:00:00 Outpatient ASH ROWLEY [facility] [id number] [facility] 2020-04-22 00:00:00 2020-04-22 00:00:00 sAh Roberson 1.2.840.1 48680.1.1 3.104.2.7 .3.941566 .[id number] [facility] 2020-04-21 00:00:00 2020-04-21 00:00:00 Case Management Ash Ramirez 1.2.840.1 53558.1.1 3.104.2.7 .3.333580 .[id number] [facility] 2020-04-20 15:09:50 2020-04-20 16:30:58 Office Visit Ash Ramirez 1.2.840.1 14213.1.1 3.104.2.7 .3.580295 .[id number] [facility] 2020-04-20 15:30:00 2020-04-20 15:30:00 Outpatient R ASH RAMIREZ [facility] [id number] [facility] 2020-04-20 00:00:00 2020-04-20 00:00:00 Travel 1.2.840.1 66734.1.1 3.104.2.7 .3.271166 .8 1.2.840.114 350.1.13.10 [id number] [facility] 2020-04-16 11:02:00 2020-04-16 13:56:00 Emergency Kitty Kessler 1.2.840.1 12720.1.1 3.104.2.7 .3.274684 .[id number] [facility] 2020-04-16 00:00:00 2020-04-16 00:00:00 Travel 1.2.840.1 87724.1.1 3.104.2.7 .3.500892 .8 1.2.840.114 350.1.13.10 4.2.7.3[id number] [facility] 2020-04-07 13:30:00 2020-04-07 13:30:00 Outpatient R CHELSY ROMO [facility] [id number] [facility] 2020-04-07 00:00:00 2020-04-07 00:00:00 Travel 1.2.840.1 00284.1.1 3.104.2.7 .3.856136 .8 1.2.840.114 350.1.13.10 4.2[address]7.3[id number] [facility] 2020-01-30 15:45:00 2020-01-30 15:45:00 Outpatient R MINNIEDELFINOTRUNG CALLAWAY [facility] [id number] [facility] 2020-01-30 00:00:00 2020-01-30 00:00:00 Travel 1.2.840.1 61269.1.1 3.104.2.7 .3.791726 .8 1.2.840.114 350.1.13.10 4.[address].7.3[id number] [facility] 2020-01-01 00:00:00 2020-01-01 00:00:00 Orders Only Doctor Unassigned, [place] 1.2.840.1 25411.1.1 3.104.2.7 .3.040021 .[id number] [facility] 2019-10-22 15:45:00 2019-10-22 15:45:00 Outpatient R CHELSY ROMO [facility] [id number] [facility] 2019-09-12 17:51:35 2019-09-12 19:25:20 Urgent Care Unknown, Attending Ruchi Matt 1.2.840.1 46011.1.1 3.104.2.7 .3.744754 .[id number] [facility] 2019-09-12 18:00:00 2019-09-12 18:00:00 Outpatient R UNKNOWN, ATTENDING [facility] [id number] [facility] 2019-07-04 00:00:00 2019-07-04 00:00:00 Orders Only Doctor Unassigned, [place] 1.2.840.1 95723.1.1 3.104.2.7 .3.545213 .[id number] [facility] 2019-04-02 00:00:00 2019-04-02 00:00:00 Orders Only Doctor Unassigned, [place] 1.2.840.1 06245.1.1 3.104.2.7 .3.973766 .[id number] [facility] 2018-10-31 14:59:26 2018-10-31 16:42:50 Nurse Visit Nilton Montes Nurse, [employer] 1.2.840.1 11422.1.1 3.104.2.7 .3.241969 .[id number] [facility] Results Test Description Test Time Test Comments Results Result Co mments Source [facility] SARS-COV-2 ANTIGEN (BINAX NOW)2023-07-19 17:16:00* Test Item Value Reference Range Interpretation Comme nts POCT SARS-COV-2 ANTIGEN (ofe t code = 94211-1) Not Detected Not Detected On board controls acceptable with C Line (test code = 3574) Yes Lab Interpretation (test cod e = 55893-1) Normal [facility] SARS-COV-2 ANTIGEN (BINAX NOW)2023-07-19 17:16:00* Test Item Value Reference Range Interpretation Comme nts POCT SARS-COV-2 ANTIGEN (ofe t code = 75832-4) Not Detected Not Detected On board controls acceptable with C Line (test code = 3574) Yes Lab Interpretation (test cod e = 17818-2) [facility] [id number] 20:12:00* Test Item Value Reference Range Interpretation Comme nts AG STREP GROUP A (THROAT) PO C (test code = STREPAPOC) negative NEGATIVE POCT [id number] 01:46:00* Test Item Value Reference Range Interpretation Comme nts POCT PREG (test code = 1605) Negative On board controls acceptable with C Line (test code = 3574) Present POCT PREG LOT # (test code = 3575) HCG [id number] POCT PREG TEST DATE ( test code = 3576) 07/02/2023 Lab Interpretation (test cod e = 86079-4) [facility] [id number] 01:46:00* Test Item Value Reference Range Interpretation Comme nts POCT PREG (test code = 1605) Negative On board controls acceptable with C Line (test code = 3574) Present POCT PREG LOT # (test code = 3575) HCG [id number] POCT PREG TEST DATE ( test code = 3576) 07/02/2023 Lab Interpretation (test cod e = 39304-5) [facility] [id number] 01:46:00* Test Item Value Reference Range Interpretation Comme nts POCT PREG (test code = 1605) Negative On board controls acceptable with C Line (test code = 3574) Present POCT PREG LOT # (test code = 3575) HCG [id number] POCT PREG TEST DATE ( test code = 3576) 07/02/2023 Lab Interpretation (test cod e = 95016-5) [facility] [id number] 01:46:00* Test Item Value Reference Range Interpretation Comme nts POCT PREG (test code = 1605) Negative On board controls acceptable with C Line (test code = 3574) Present POCT PREG LOT # (test code = 3575) HCG [id number] POCT PREG TEST DATE ( test code = 3576) 07/02/2023 Lab Interpretation (test cod e = 77016-4) [facility] [id number] 01:46:00* Test Item Value Reference Range Interpretation Comme nts POCT PREG (test code = 1605) Negative On board controls acceptable with C Line (test code = 3574) Present POCT PREG LOT # (test code = 3575) HCG [id number] POCT PREG TEST DATE ( test code = 3576) 07/02/2023 Lab Interpretation (test cod e = 07625-6) [facility] [id number] 01:46:00* Test Item Value Reference Range Interpretation Comme nts POCT PREG (test code = 1605) Negative On board controls acceptable with C Line (test code = 3574) Present POCT PREG LOT # (test code = 3575) HCG [id number] POCT PREG TEST DATE ( test code = 3576) 07/02/2023 Lab Interpretation (test cod e = 32439-8) [facility] [id number] 01:46:00* Test Item Value Reference Range Interpretation Comme nts POCT PREG (test code = 1605) Negative On board controls acceptable with C Line (test code = 3574) Present POCT PREG LOT # (test code = 3575) HCG [id number] POCT PREG TEST DATE ( test code = 3576) 07/02/2023 Lab Interpretation (test cod e = 20243-7) [facility] [id number] 01:46:00* Test Item Value Reference Range Interpretation Comme nts POCT PREG (test code = 1605) Negative On board controls acceptable with C Line (test code = 3574) Present POCT PREG LOT # (test code = 3575) HCG [id number] POCT PREG TEST DATE ( test code = 3576) 07/02/2023 Lab Interpretation (test cod e = 35528-4) [facility] [id number] 01:46:00* Test Item Value Reference Range Interpretation Comme nts POCT PREG (test code = 1605) Negative On board controls acceptable with C Line (test code = 3574) Present POCT PREG LOT # (test code = 3575) HCG [id number] POCT PREG TEST DATE ( test code = 3576) 07/02/2023 Lab Interpretation (test cod e = 80462-4) [facility] [id number] 01:46:00* Test Item Value Reference Range Interpretation Comme nts POCT PREG (test code = 1605) Negative On board controls acceptable with C Line (test code = 3574) Present POCT PREG LOT # (test code = 3575) HCG [id number] POCT PREG TEST DATE ( test code = 3576) 07/02/2023 Lab Interpretation (test cod e = 51442-6) [facility] [id number] 01:46:00* Test Item Value Reference Range Interpretation Comme nts POCT PREG (test code = 1605) Negative On board controls acceptable with C Line (test code = 3574) Present POCT PREG LOT # (test code = 3575) HCG [id number] POCT PREG TEST DATE ( test code = 3576) 07/02/2023 Lab Interpretation (test cod e = 71837-0) [facility] [id number] 01:46:00* Test Item Value Reference Range Interpretation Comme nts POCT PREG (test code = 1605) Negative On board controls acceptable with C Line (test code = 3574) Present POCT PREG LOT # (test code = 3575) HCG [id number] POCT PREG TEST DATE ( test code = 3576) 07/02/2023 Lab Interpretation (test cod e = 17179-3) [facility] [id number] 01:46:00* Test Item Value Reference Range Interpretation Comme nts POCT PREG (test code = 1605) Negative On board controls acceptable with C Line (test code = 3574) Present POCT PREG LOT # (test code = 3575) HCG [id number] POCT PREG TEST DATE ( test code = 3576) 07/02/2023 Lab Interpretation (test cod e = 18701-9) [facility] [id number] 01:46:00* Test Item Value Reference Range Interpretation Comme nts POCT PREG (test code = 1605) Negative On board controls acceptable with C Line (test code = 3574) Present POCT PREG LOT # (test code = 3575) HCG [id number] POCT PREG TEST DATE ( test code = 3576) 07/02/2023 Lab Interpretation (test cod e = 27823-5) [facility] [id number] 01:46:00* Test Item Value Reference Range Interpretation Comme nts POCT PREG (test code = 1605) Negative On board controls acceptable with C Line (test code = 3574) Present POCT PREG LOT # (test code = 3575) HCG [id number] POCT PREG TEST DATE ( test code = 3576) 07/02/2023 Lab Interpretation (test cod e = 58499-2) [facility] [id number] 01:46:00* Test Item Value Reference Range Interpretation Comme nts POCT PREG (test code = 1605) Negative On board controls acceptable with C Line (test code = 3574) Present POCT PREG LOT # (test code = 3575) HCG [id number] POCT PREG TEST DATE ( test code = 3576) 07/02/2023 Lab Interpretation (test cod e = 20836-2) [facility] [id number] 01:46:00* Test Item Value Reference Range Interpretation Comme nts POCT PREG (test code = 1605) Negative On board controls acceptable with C Line (test code = 3574) Present POCT PREG LOT # (test code = 3575) HCG [id number] POCT PREG TEST DATE ( test code = 3576) 07/02/2023 Lab Interpretation (test cod e = 15852-8) [facility] [id number] 01:46:00* Test Item Value Reference Range Interpretation Comme nts POCT PREG (test code = 1605) Negative On board controls acceptable with C Line (test code = 3574) Present POCT PREG LOT # (test code = 3575) HCG [id number] POCT PREG TEST DATE ( test code = 3576) 07/02/2023 Lab Interpretation (test cod e = 82387-2) [facility] [id number] 01:46:00* Test Item Value Reference Range Interpretation Comme nts POCT PREG (test code = 1605) Negative On board controls acceptable with C Line (test code = 3574) Present POCT PREG LOT # (test code = 3575) HCG [id number] POCT PREG TEST DATE ( test code = 3576) 07/02/2023 Lab Interpretation (test cod e = 37786-8) [facility] [id number] 01:46:00* Test Item Value Reference Range Interpretation Comme nts POCT PREG (test code = 1605) Negative On board controls acceptable with C Line (test code = 3574) Present POCT PREG LOT # (test code = 3575) HCG [id number] POCT PREG TEST DATE ( test code = 3576) 07/02/2023 Lab Interpretation (test cod e = 29225-8) [facility] [id number] 01:46:00* Test Item Value Reference Range Interpretation Comme nts POCT PREG (test code = 1605) Negative On board controls acceptable with C Line (test code = 3574) Present POCT PREG LOT # (test code = 3575) HCG [id number] POCT PREG TEST DATE ( test code = 3576) 07/02/2023 Lab Interpretation (test cod e = 47510-0) [facility] [id number] 01:46:00* Test Item Value Reference Range Interpretation Comme nts POCT PREG (test code = 1605) Negative On board controls acceptable with C Line (test code = 3574) Present POCT PREG LOT # (test code = 3575) HCG [id number] POCT PREG TEST DATE ( test code = 3576) 07/02/2023 Lab Interpretation (test cod e = 75382-6) [facility] [id number] 01:46:00* Test Item Value Reference Range Interpretation Comme nts POCT PREG (test code = 1605) Negative On board controls acceptable with C Line (test code = 3574) Present POCT PREG LOT # (test code = 3575) HCG [id number] POCT PREG TEST DATE ( test code = 3576) 07/02/2023 Lab Interpretation (test cod e = 56597-9) Normal [facility] METABOLIC PANEL (NA, K, CL, CO2, GLUCOSE, BUN, CREATININE, CA)2022-04-05 11:08:28* Test Item Value Reference Range Interpretation Comme nts NA (test code = 3847514185) 137 mmol/L 135-145 K (test code = 5941845929) 3.8 mmol/L 3.5-5 CL (test code = 5266028444) 104 mmol/L 98-108 CO2 TOTAL (test code = 5379167307) 27 mmol/L 23-31 AGAP (test code = 4112937662) 2-16 BUN (test code = 1850863907) 13 mg/dL 7-23 GLUCOSE (test code = 4719139096) 106 mg/dL 70-110 CREATININE (test code = 1807852400) 0.58 mg/dL 0.5-1.04 CALCIUM (test code = 1474905785) 8.6 mg/dL 8.6-10.6 eGFR (test code = 7107687351) mL/min/1.73m2 MEDHAT (test code = MEDHAT) Association [...] in imaging tests). [facility] (NA, K, CL, CO2, GLUCOSE, BUN, CREATININE, CA)2022-04-05 11:08:28* Test Item Value Reference Range Interpretation Comme nts NA (test code = 6657120585) 137 mmol/L 135-145 K (test code = 7292552185) 3.8 mmol/L 3.5-5 CL (test code = 7453274277) 104 mmol/L 98-108 CO2 TOTAL (test code = 7990353743) 27 mmol/L 23-31 AGAP (test code = 2933688890) 2-16 BUN (test code = 8119450959) 13 mg/dL 7-23 GLUCOSE (test code = 3625572093) 106 mg/dL 70-110 CREATININE (test code = 8682804745) 0.58 mg/dL 0.5-1.04 CALCIUM (test code = 1165453193) 8.6 mg/dL 8.6-10.6 eGFR (test code = 5626907544) mL/min/1.73m2 MEDHAT (test code = MEDHAT) Association [...] or urine or abnormalities in imaging tests). [facility] METABOLIC PANEL (NA, K, CL, CO2, GLUCOSE, BUN, CREATININE, CA)2022-04-05 11:08:28* Test Item Value Reference Range Interpretation Comme nts NA (test code = 5054328525) 137 mmol/L 135-145 K (test code = 1432618707) 3.8 mmol/L 3.5-5 CL (test code = 2317013789) 104 mmol/L 98-108 CO2 TOTAL (test code = 5470513031) 27 mmol/L 23-31 AGAP (test code = 5874618171) 2-16 BUN (test code = 3267669748) 13 mg/dL 7-23 GLUCOSE (test code = 9213816062) 106 mg/dL 70-110 CREATININE (test code = 4122296615) 0.58 mg/dL 0.5-1.04 CALCIUM (test code = 2169524395) 8.6 mg/dL 8.6-10.6 eGFR (test code = 0371138726) mL/min/1.73m2 MEDHAT (test code = MEDHAT) Association [...] or urine or abnormalities in imaging tests). [facility] METABOLIC PANEL (NA, K, CL, CO2, GLUCOSE, BUN, CREATININE, CA)2022-04-05 11:08:28* Test Item Value Reference Range Interpretation Comme nts NA (test code = 2627046493) 137 mmol/L 135-145 K (test code = 1157943583) 3.8 mmol/L 3.5-5 CL (test code = 7011379091) 104 mmol/L 98-108 CO2 TOTAL (test code = 5123525994) 27 mmol/L 23-31 AGAP (test code = 6273795863) 2-16 BUN (test code = 9331697869) 13 mg/dL 7-23 GLUCOSE (test code = 3339584261) 106 mg/dL 70-110 CREATININE (test code = 0968691912) 0.58 mg/dL 0.5-1.04 CALCIUM (test code = 9235693301) 8.6 mg/dL 8.6-10.6 eGFR (test code = 5704980704) mL/min/1.73m2 MEDHAT (test code = MEDHAT) Association [...] or urine or abnormalities in imaging tests). [facility] METABOLIC PANEL (NA, K, CL, CO2, GLUCOSE, BUN, CREATININE, CA)2022-04-05 11:08:28* Test Item Value Reference Range Interpretation Comme nts NA (test code = 0861041398) 137 mmol/L 135-145 K (test code = 3291320370) 3.8 mmol/L 3.5-5 CL (test code = 5428759075) 104 mmol/L 98-108 CO2 TOTAL (test code = 5390407276) 27 mmol/L 23-31 AGAP (test code = 5226688514) 2-16 BUN (test code = 7237792200) 13 mg/dL 7-23 GLUCOSE (test code = 1039264297) 106 mg/dL 70-110 CREATININE (test code = 7015624940) 0.58 mg/dL 0.5-1.04 CALCIUM (test code = 6964956843) 8.6 mg/dL 8.6-10.6 eGFR (test code = 1999923838) mL/min/1.73m2 MEDHAT (test code = MEDHAT) Association [...] or urine or abnormalities in imaging tests). [facility] METABOLIC PANEL (NA, K, CL, CO2, GLUCOSE, BUN, CREATININE, CA)2022-04-05 11:08:28* Test Item Value Reference Range Interpretation Comme nts NA (test code = 1075372666) 137 mmol/L 135-145 K (test code = 3789993093) 3.8 mmol/L 3.5-5 CL (test code = 6600602409) 104 mmol/L 98-108 CO2 TOTAL (test code = 3688509787) 27 mmol/L 23-31 AGAP (test code = 2657382407) 2-16 BUN (test code = 3413378413) 13 mg/dL 7-23 GLUCOSE (test code = 9430357542) 106 mg/dL 70-110 CREATININE (test code = 7013592255) 0.58 mg/dL 0.5-1.04 CALCIUM (test code = 5671626922) 8.6 mg/dL 8.6-10.6 eGFR (test code = 5862953923) mL/min/1.73m2 MEDHAT (test code = MEDHAT) Association [...] or urine or abnormalities in imaging tests). [facility] METABOLIC PANEL (NA, K, CL, CO2, GLUCOSE, BUN, CREATININE, CA)2022-04-05 11:08:28* Test Item Value Reference Range Interpretation Comme nts NA (test code = 0621673978) 137 mmol/L 135-145 K (test code = 1609113285) 3.8 mmol/L 3.5-5 CL (test code = 3278035087) 104 mmol/L 98-108 CO2 TOTAL (test code = 8018832953) 27 mmol/L 23-31 AGAP (test code = 5233914787) 2-16 BUN (test code = 7586416724) 13 mg/dL 7-23 GLUCOSE (test code = 6486875713) 106 mg/dL 70-110 CREATININE (test code = 9264188810) 0.58 mg/dL 0.5-1.04 CALCIUM (test code = 7342095725) 8.6 mg/dL 8.6-10.6 eGFR (test code = 6666728946) mL/min/1.73m2 MEDHAT (test code = MEDHAT) Association [...] in imaging tests). [facility] (NA, K, CL, CO2, GLUCOSE, BUN, CREATININE, CA)2022-04-05 11:08:28* Test Item Value Reference Range Interpretation Comme nts NA (test code = 8997276791) 137 mmol/L 135-145 K (test code = 7487221872) 3.8 mmol/L 3.5-5 CL (test code = 9920196907) 104 mmol/L 98-108 CO2 TOTAL (test code = 9532733937) 27 mmol/L 23-31 AGAP (test code = 0307077093) 2-16 BUN (test code = 6539420953) 13 mg/dL 7-23 GLUCOSE (test code = 4009345575) 106 mg/dL 70-110 CREATININE (test code = 9932756204) 0.58 mg/dL 0.5-1.04 CALCIUM (test code = 7885003627) 8.6 mg/dL 8.6-10.6 eGFR (test code = 6354132256) mL/min/1.73m2 MEDHAT (test code = MEDHAT) Association [...] or urine or abnormalities in imaging tests). [facility] METABOLIC PANEL (NA, K, CL, CO2, GLUCOSE, BUN, CREATININE, CA)2022-04-05 11:08:28* Test Item Value Reference Range Interpretation Comme nts NA (test code = 0731105371) 137 mmol/L 135-145 K (test code = 1083505620) 3.8 mmol/L 3.5-5 CL (test code = 9959882381) 104 mmol/L 98-108 CO2 TOTAL (test code = 1771588389) 27 mmol/L 23-31 AGAP (test code = 5723546938) 2-16 BUN (test code = 2901854041) 13 mg/dL 7-23 GLUCOSE (test code = 2578458044) 106 mg/dL 70-110 CREATININE (test code = 3775550941) 0.58 mg/dL 0.5-1.04 CALCIUM (test code = 7297598937) 8.6 mg/dL 8.6-10.6 eGFR (test code = 4438302713) mL/min/1.73m2 MEDHAT (test code = MEDHAT) Association [...] or urine or abnormalities in imaging tests). [facility] METABOLIC PANEL (NA, K, CL, CO2, GLUCOSE, BUN, CREATININE, CA)2022-04-05 11:08:28* Test Item Value Reference Range Interpretation Comme nts NA (test code = 3040747153) 137 mmol/L 135-145 K (test code = 0171553351) 3.8 mmol/L 3.5-5 CL (test code = 3252449412) 104 mmol/L 98-108 CO2 TOTAL (test code = 7235099692) 27 mmol/L 23-31 AGAP (test code = 3999082622) 2-16 BUN (test code = 6957613337) 13 mg/dL 7-23 GLUCOSE (test code = 2395618168) 106 mg/dL 70-110 CREATININE (test code = 9648624558) 0.58 mg/dL 0.5-1.04 CALCIUM (test code = 7246205874) 8.6 mg/dL 8.6-10.6 eGFR (test code = 3994673156) mL/min/1.73m2 MEDHAT (test code = MEDHAT) Association [...] in imaging tests). [facility] (NA, K, CL, CO2, GLUCOSE, BUN, CREATININE, CA)2022-04-05 11:08:28* Test Item Value Reference Range Interpretation Comme nts NA (test code = 0136407893) 137 mmol/L 135-145 K (test code = 7109164903) 3.8 mmol/L 3.5-5 CL (test code = 5661521309) 104 mmol/L 98-108 CO2 TOTAL (test code = 2317269289) 27 mmol/L 23-31 AGAP (test code = 7802992066) 2-16 BUN (test code = 6122500705) 13 mg/dL 7-23 GLUCOSE (test code = 8447546454) 106 mg/dL 70-110 CREATININE (test code = 3123132854) 0.58 mg/dL 0.5-1.04 CALCIUM (test code = 1149721818) 8.6 mg/dL 8.6-10.6 eGFR (test code = 4327866793) mL/min/1.73m2 MEDHAT (test code = MEDHAT) Association [...] in imaging tests). [facility] (NA, K, CL, CO2, GLUCOSE, BUN, CREATININE, CA)2022-04-05 11:08:28* Test Item Value Reference Range Interpretation Comme nts NA (test code = 9526733614) 137 mmol/L 135-145 K (test code = 5904197596) 3.8 mmol/L 3.5-5 CL (test code = 7538200995) 104 mmol/L 98-108 CO2 TOTAL (test code = 0832826323) 27 mmol/L 23-31 AGAP (test code = 5666475737) 2-16 BUN (test code = 4440400848) 13 mg/dL 7-23 GLUCOSE (test code = 9087398261) 106 mg/dL 70-110 CREATININE (test code = 0625326567) 0.58 mg/dL 0.5-1.04 CALCIUM (test code = 9845302087) 8.6 mg/dL 8.6-10.6 eGFR (test code = 0054112526) mL/min/1.73m2 MEDHAT (test code = MEDHAT) Association [...] or urine or abnormalities in imaging tests). [facility] METABOLIC PANEL (NA, K, CL, CO2, GLUCOSE, BUN, CREATININE, CA)2022-04-05 11:08:28* Test Item Value Reference Range Interpretation Comme nts NA (test code = 4494896442) 137 mmol/L 135-145 K (test code = 7699997408) 3.8 mmol/L 3.5-5 CL (test code = 7332155197) 104 mmol/L 98-108 CO2 TOTAL (test code = 3999393091) 27 mmol/L 23-31 AGAP (test code = 2716184930) 2-16 BUN (test code = 2596743986) 13 mg/dL 7-23 GLUCOSE (test code = 3672419583) 106 mg/dL 70-110 CREATININE (test code = 8192731567) 0.58 mg/dL 0.5-1.04 CALCIUM (test code = 6521954513) 8.6 mg/dL 8.6-10.6 eGFR (test code = 9760922831) mL/min/1.73m2 MEDHAT (test code = MEDHAT) Association [...] or urine or abnormalities in imaging tests). [facility] METABOLIC PANEL (NA, K, CL, CO2, GLUCOSE, BUN, CREATININE, CA)2022-04-05 11:08:28* Test Item Value Reference Range Interpretation Comme nts NA (test code = 0287316895) 137 mmol/L 135-145 K (test code = 3885783538) 3.8 mmol/L 3.5-5 CL (test code = 0951214635) 104 mmol/L 98-108 CO2 TOTAL (test code = 0686113820) 27 mmol/L 23-31 AGAP (test code = 7063444176) 2-16 BUN (test code = 2997892122) 13 mg/dL 7-23 GLUCOSE (test code = 4431141570) 106 mg/dL 70-110 CREATININE (test code = 4268962667) 0.58 mg/dL 0.5-1.04 CALCIUM (test code = 5554975076) 8.6 mg/dL 8.6-10.6 eGFR (test code = 1798487988) mL/min/1.73m2 MEDHAT (test code = MEDHAT) Association [...] in imaging tests). [facility] (NA, K, CL, CO2, GLUCOSE, BUN, CREATININE, CA)2022-04-05 11:08:28* Test Item Value Reference Range Interpretation Comme nts NA (test code = 6209929945) 137 mmol/L 135-145 K (test code = 2175206686) 3.8 mmol/L 3.5-5 CL (test code = 3651307679) 104 mmol/L 98-108 CO2 TOTAL (test code = 1516714797) 27 mmol/L 23-31 AGAP (test code = 0078557604) 2-16 BUN (test code = 1880312709) 13 mg/dL 7-23 GLUCOSE (test code = 0099786858) 106 mg/dL 70-110 CREATININE (test code = 6210473048) 0.58 mg/dL 0.5-1.04 CALCIUM (test code = 3641033551) 8.6 mg/dL 8.6-10.6 eGFR (test code = 1469995322) mL/min/1.73m2 MEDHAT (test code = MEDHAT) Association [...] or urine or abnormalities in imaging tests). [facility] METABOLIC PANEL (NA, K, CL, CO2, GLUCOSE, BUN, CREATININE, CA)2022-04-05 11:08:28* Test Item Value Reference Range Interpretation Comme nts NA (test code = 4325063894) 137 mmol/L 135-145 K (test code = 1377006351) 3.8 mmol/L 3.5-5.0 CL (test code = 4730471513) 104 mmol/L 98-108 CO2 TOTAL (test code = 2677527171) 27 mmol/L 23-31 AGAP (test code = 0349398914) 2-16 BUN (test code = 9891108043) 13 mg/dL 7-23 GLUCOSE (test code = 8541211404) 106 mg/dL 70-110 CREATININE (test code = 0675550525) 0.58 mg/dL 0.50-1.04 CALCIUM (test code = 9316445451) 8.6 mg/dL 8.6-10.6 eGFR (test code = 0270262491) mL/min/1.73m2 MEDHAT (test code = MEDHAT) Association [...] or urine or abnormalities in imaging tests). [facility] METABOLIC PANEL (NA, K, CL, CO2, GLUCOSE, BUN, CREATININE, CA)2022-04-05 11:08:28* Test Item Value Reference Range Interpretation Comme nts NA (test code = 5943872319) 137 mmol/L 135-145 K (test code = 3140782599) 3.8 mmol/L 3.5-5.0 CL (test code = 7773902757) 104 mmol/L 98-108 CO2 TOTAL (test code = 4281970622) 27 mmol/L 23-31 AGAP (test code = 6743721839) 2-16 BUN (test code = 8123795633) 13 mg/dL 7-23 GLUCOSE (test code = 6327091901) 106 mg/dL 70-110 CREATININE (test code = 4347161264) 0.58 mg/dL 0.50-1.04 CALCIUM (test code = 3241369881) 8.6 mg/dL 8.6-10.6 eGFR (test code = 3463332721) mL/min/1.73m2 MEDHAT (test code = MEDHAT) Association [...] or urine or abnormalities in imaging tests). [facility] METABOLIC PANEL (NA, K, CL, CO2, GLUCOSE, BUN, CREATININE, CA)2022-04-05 11:08:28* Test Item Value Reference Range Interpretation Comme nts NA (test code = 0246641315) 137 mmol/L 135-145 K (test code = 4477400583) 3.8 mmol/L 3.5-5.0 CL (test code = 6820203925) 104 mmol/L 98-108 CO2 TOTAL (test code = 4634304905) 27 mmol/L 23-31 AGAP (test code = 3245402540) 2-16 BUN (test code = 7804226989) 13 mg/dL 7-23 GLUCOSE (test code = 0549355052) 106 mg/dL 70-110 CREATININE (test code = 7381801613) 0.58 mg/dL 0.50-1.04 CALCIUM (test code = 3155986738) 8.6 mg/dL 8.6-10.6 eGFR (test code = 2595126589) mL/min/1.73m2 MEDHAT (test code = MEDHAT) Association [...] or urine or abnormalities in imaging tests). [facility] METABOLIC PANEL (NA, K, CL, CO2, GLUCOSE, BUN, CREATININE, CA)2022-04-05 11:08:28* Test Item Value Reference Range Interpretation Comme nts NA (test code = 1377780431) 137 mmol/L 135-145 K (test code = 5345357112) 3.8 mmol/L 3.5-5.0 CL (test code = 7643862562) 104 mmol/L 98-108 CO2 TOTAL (test code = 0939171184) 27 mmol/L 23-31 AGAP (test code = 7693670123) 2-16 BUN (test code = 5841874475) 13 mg/dL 7-23 GLUCOSE (test code = 0828236078) 106 mg/dL 70-110 CREATININE (test code = 3660719533) 0.58 mg/dL 0.50-1.04 CALCIUM (test code = 6503164572) 8.6 mg/dL 8.6-10.6 eGFR (test code = 6534006054) mL/min/1.73m2 MEDHAT (test code = MEDHAT) Association [...] or urine or abnormalities in imaging tests). [facility] METABOLIC PANEL (NA, K, CL, CO2, GLUCOSE, BUN, CREATININE, CA)2022-04-05 11:08:28* Test Item Value Reference Range Interpretation Comme nts NA (test code = 2267482840) 137 mmol/L 135-145 K (test code = 6412838606) 3.8 mmol/L 3.5-5.0 CL (test code = 9812478796) 104 mmol/L 98-108 CO2 TOTAL (test code = 4397702515) 27 mmol/L 23-31 AGAP (test code = 7649842189) 2-16 BUN (test code = 1775017249) 13 mg/dL 7-23 GLUCOSE (test code = 3656350829) 106 mg/dL 70-110 CREATININE (test code = 6729249693) 0.58 mg/dL 0.50-1.04 CALCIUM (test code = 8598623240) 8.6 mg/dL 8.6-10.6 eGFR (test code = 0150451251) mL/min/1.73m2 MEDHAT (test code = MEDHAT) Association [...] in imaging tests). [facility] (NA, K, CL, CO2, GLUCOSE, BUN, CREATININE, CA)2022-04-05 11:08:28* Test Item Value Reference Range Interpretation Comme nts NA (test code = 2512878398) 137 mmol/L 135-145 K (test code = 8155251309) 3.8 mmol/L 3.5-5.0 CL (test code = 7390956175) 104 mmol/L 98-108 CO2 TOTAL (test code = 0502033086) 27 mmol/L 23-31 AGAP (test code = 3703044351) 2-16 BUN (test code = 9079815791) 13 mg/dL 7-23 GLUCOSE (test code = 9970198744) 106 mg/dL 70-110 CREATININE (test code = 4582275925) 0.58 mg/dL 0.50-1.04 CALCIUM (test code = 4613258499) 8.6 mg/dL 8.6-10.6 eGFR (test code = 2463874766) mL/min/1.73m2 MEDHAT (test code = MEDHAT) Association [...] in imaging tests). [facility] (NA, K, CL, CO2, GLUCOSE, BUN, CREATININE, CA)2022-04-05 11:08:28* Test Item Value Reference Range Interpretation Comme nts NA (test code = 6514051240) 137 mmol/L 135-145 K (test code = 3521664580) 3.8 mmol/L 3.5-5.0 CL (test code = 3556242084) 104 mmol/L 98-108 CO2 TOTAL (test code = 5280904575) 27 mmol/L 23-31 AGAP (test code = 9197528940) 2-16 BUN (test code = 2801895050) 13 mg/dL 7-23 GLUCOSE (test code = 6938842474) 106 mg/dL 70-110 CREATININE (test code = 9228617924) 0.58 mg/dL 0.50-1.04 CALCIUM (test code = 9785973358) 8.6 mg/dL 8.6-10.6 eGFR (test code = 7554806125) mL/min/1.73m2 MEDHAT (test code = MEDHAT) Association [...] or urine or abnormalities in imaging tests). [facility] METABOLIC PANEL (NA, K, CL, CO2, GLUCOSE, BUN, CREATININE, CA)2022-04-05 11:08:28* Test Item Value Reference Range Interpretation Comme nts NA (test code = 0462601362) 137 mmol/L 135-145 K (test code = 5147832640) 3.8 mmol/L 3.5-5.0 CL (test code = 8161036586) 104 mmol/L 98-108 CO2 TOTAL (test code = 4828966898) 27 mmol/L 23-31 AGAP (test code = 9807408072) 2-16 BUN (test code = 3356027127) 13 mg/dL 7-23 GLUCOSE (test code = 4878013745) 106 mg/dL 70-110 CREATININE (test code = 5560415250) 0.58 mg/dL 0.50-1.04 CALCIUM (test code = 2279958502) 8.6 mg/dL 8.6-10.6 eGFR (test code = 9266310209) mL/min/1.73m2 MEDHAT (test code = MEDHAT) Association [...] or urine or abnormalities in imaging tests). [facility] METABOLIC PANEL (NA, K, CL, CO2, GLUCOSE, BUN, CREATININE, CA)2022-04-05 11:08:28* Test Item Value Reference Range Interpretation Comme nts NA (test code = 8554699173) 137 mmol/L 135-145 K (test code = 4692655885) 3.8 mmol/L 3.5-5.0 CL (test code = 3018402795) 104 mmol/L 98-108 CO2 TOTAL (test code = 7593924603) 27 mmol/L 23-31 AGAP (test code = 6873157829) 2-16 BUN (test code = 5109198110) 13 mg/dL 7-23 GLUCOSE (test code = 0843443580) 106 mg/dL 70-110 CREATININE (test code = 9495518214) 0.58 mg/dL 0.50-1.04 CALCIUM (test code = 0456551154) 8.6 mg/dL 8.6-10.6 eGFR (test code = 2882979241) mL/min/1.73m2 MEDHAT (test code = MEDHAT) Association [...] or urine or abnormalities in imaging tests). [facility] with [id number] 10:50:28* Test Item Value Reference Range Interpretation Comme nts WBC (test code = 6690-2) See_Comment [Automated messa ge] The system which generated this result transmitted reference range: 4.30 - 11.10 10*3/?L. The reference range was not used to interpret this result as normal/abnormal. RBC (test code = 789-8) See_Comment [Automated messa ge] The system which generated this result transmitted reference range: 3.93 - 5.25 10*6/?L. The reference range was not used to interpret this result as normal/abnormal. HGB (test code = 718-7) 11.6 g/dL 11.6-15 HCT (test code = 4544-3) 35.5 % 35.7-45.2 L MCV (test code = 787-2) 86.8 fL 80.6-95.5 MCH (test code = 785-6) 28.4 pg 25.9-32.8 MCHC (test code = 786-4) 32.7 g/dL 31.6-35.1 RDW-SD (test code = 91477-9) 43.6 fL 39-49.9 RDW-CV (test code = 788-0) 13.6 % 12-15.5 PLT (test code = 777-3) See_Comment [Automated messa ge] The system which generated this result transmitted reference range: 166 - 358 10*3/?L. The reference range was not used to interpret this result as normal/abnormal. MPV (test code = 19046-5) 9.9 fL 9.5-12.9 NRBC/100 WBC (test code = 1934847565) See_Comment [Automated [employer] ssage] The system which generated this result transmitted reference range: 0.0 - 10.0 /100 WBCs. The reference range was not used to interpret this result as normal/abnormal. NRBC x10^3 (test code = 3465693275) See_Comment [Automated messa ge] The system which generated this result transmitted reference range: 10*3/?L. The reference range was not used to interpret this result as normal/abnormal. GRAN MAT (NEUT) % (test code = 770-8) 65.5 % IMM GRAN % (test code = 0668583150) 0.30 % LYMPH % (test code = 736-9) 25.3 % MONO % (test code = 5905-5) 8.4 % EOS % (test code = 713-8) 0.0 % BASO % (test code = 706-2) 0.5 % GRAN MAT x10^3(ANC) (test code = 2281346436) 6.56 10*3/uL 1.88-7.09 IMM GRAN x10^3 (test code = 0156669761) 0.03 10*3/uL 0-0.06 LYMPH x10^3 (test code = 731-0) 2.53 10*3/uL 1.32-3.29 MONO x10^3 (test code = 742-7) 0.84 10*3/uL 0.33-0.92 EOS x10^3 (test code = 711-2) 0.03-0.39 L BASO x10^3 (test code = 704-7) 0.05 10*3/uL 0.01-0.07 Lab Interpretation (test code = 46826-4) Abnormal [facility] with [id number] 10:50:28* Test Item Value Reference Range Interpretation Comme nts WBC (test code = 6690-2) See_Comment [Automated [employer] ge] The system which generated this result transmitted reference range: 4.30 - 11.10 10*3/?L. The reference range was not used to interpret this result as normal/abnormal. RBC (test code = 789-8) See_Comment [Automated [employer] ge] The system which generated this result transmitted reference range: 3.93 - 5.25 10*6/?L. The reference range was not used to interpret this result as normal/abnormal. HGB (test code = 718-7) 11.6 g/dL 11.6-15 HCT (test code = 4544-3) 35.5 % 35.7-45.2 L MCV (test code = 787-2) 86.8 fL 80.6-95.5 MCH (test code = 785-6) 28.4 pg 25.9-32.8 MCHC (test code = 786-4) 32.7 g/dL 31.6-35.1 RDW-SD (test code = 45090-3) 43.6 fL 39-49.9 RDW-CV (test code = 788-0) 13.6 % 12-15.5 PLT (test code = 777-3) See_Comment [Automated [employer] ge] The system which generated this result transmitted reference range: 166 - 358 10*3/?L. The reference range was not used to interpret this result as normal/abnormal. MPV (test code = 65126-3) 9.9 fL 9.5-12.9 NRBC/100 WBC (test code = 9858681960) See_Comment [Automated [employer] ssage] The system which generated this result transmitted reference range: 0.0 - 10.0 /100 WBCs. The reference range was not used to interpret this result as normal/abnormal. NRBC x10^3 (test code = 3560818808) See_Comment [Automated [employer] ge] The system which generated this result transmitted reference range: 10*3/?L. The reference range was not used to interpret this result as normal/abnormal. GRAN MAT (NEUT) % (test code = 770-8) 65.5 % IMM GRAN % (test code = 2197029490) 0.30 % LYMPH % (test code = 736-9) 25.3 % MONO % (test code = 5905-5) 8.4 % EOS % (test code = 713-8) 0.0 % BASO % (test code = 706-2) 0.5 % GRAN MAT x10^3(ANC) (test code = 5120146475) 6.56 10*3/uL 1.88-7.09 IMM GRAN x10^3 (test code = 6044625306) 0.03 10*3/uL 0-0.06 LYMPH x10^3 (test code = 731-0) 2.53 10*3/uL 1.32-3.29 MONO x10^3 (test code = 742-7) 0.84 10*3/uL 0.33-0.92 EOS x10^3 (test code = 711-2) 0.03-0.39 L BASO x10^3 (test code = 704-7) 0.05 10*3/uL 0.01-0.07 Lab Interpretation (test code = 42470-9) Abnormal [facility] [id number] 01:03:38* Test Item Value Reference Range Interpretation Comments TROPONIN I (test code = 4156176740) 0.001 ng/mL See_Comment [Automated message] The system which generated this result transmitted reference range: <=0.034. The reference range was not used to interpret this result as normal/abnormal. MEDHAT (test code = MEDHAT) Reference (Normal) Range (defined by the 99th percentile reference [...] to patient's use of biotin. Lab Interpretation (test code = 66630-5) Normal [place] [id number] 01:03:38* Test Item Value Reference Range Interpretation Comments TROPONIN I (test code = 2753411808) 0.001 ng/mL See_Comment [Automated message] The system which generated this result transmitted reference range: <=0.034. The reference range was not used to interpret this result as normal/abnormal. MEDHAT (test code = MEDHAT) Reference (Normal) Range (defined by the 99th percentile reference [...] to patient's use of biotin. Lab Interpretation (test code = 87564-2) Normal [facility] [id number] 01:03:38* Test Item Value Reference Range Interpretation Comments TROPONIN I (test code = 7194640136) 0.001 ng/mL See_Comment [Automated message] The system which generated this result transmitted reference range: <=0.034. The reference range was not used to interpret this result as normal/abnormal. MEDHAT (test code = MEDHAT) Reference (Normal) Range (defined by the 99th percentile reference [...] to patient's use of biotin. Lab Interpretation (test code = 94325-5) Normal [facility] [id number] 01:03:38* Test Item Value Reference Range Interpretation Comments TROPONIN I (test code = 0760549913) 0.001 ng/mL See_Comment [Automated message] The system which generated this result transmitted reference range: <=0.034. The reference range was not used to interpret this result as normal/abnormal. MEDHAT (test code = MEDHAT) Reference (Normal) Range (defined by the 99th percentile reference [...] to patient's use of biotin. Lab Interpretation (test code = 15999-8) Normal [facility] [id number] 01:03:38* Test Item Value Reference Range Interpretation Comments TROPONIN I (test code = 9115858222) 0.001 ng/mL See_Comment [Automated message] The system which generated this result transmitted reference range: <=0.034. The reference range was not used to interpret this result as normal/abnormal. MEDHAT (test code = MEDHAT) Reference (Normal) Range (defined by the 99th percentile reference [...] to patient's use of biotin. Lab Interpretation (test code = 63915-5) Normal [facility] [id number] 01:03:38* Test Item Value Reference Range Interpretation Comments TROPONIN I (test code = 1592984774) 0.001 ng/mL See_Comment [Automated message] The system which generated this result transmitted reference range: <=0.034. The reference range was not used to interpret this result as normal/abnormal. MEDHAT (test code = MEDHAT) Reference (Normal) Range (defined by the 99th percentile reference [...] to patient's use of biotin. Lab Interpretation (test code = 14059-1) Normal [facility] [id number] 01:03:38* Test Item Value Reference Range Interpretation Comments TROPONIN I (test code = 5573877249) 0.001 ng/mL See_Comment [Automated message] The system which generated this result transmitted reference range: <=0.034. The reference range was not used to interpret this result as normal/abnormal. MEDHAT (test code = MEDHAT) Reference (Normal) Range (defined by the 99th percentile reference [...] to patient's use of biotin. Lab Interpretation (test code = 28936-0) Normal [facility] [id number] 01:03:38* Test Item Value Reference Range Interpretation Comments TROPONIN I (test code = 4207429816) 0.001 ng/mL See_Comment [Automated message] The system which generated this result transmitted reference range: <=0.034. The reference range was not used to interpret this result as normal/abnormal. MEDHAT (test code = MEDHAT) Reference (Normal) Range (defined by the 99th percentile reference [...] to patient's use of biotin. Lab Interpretation (test code = 36635-9) Normal [facility] [id number] 01:03:38* Test Item Value Reference Range Interpretation Comments TROPONIN I (test code = 0246860634) 0.001 ng/mL See_Comment [Automated message] The system which generated this result transmitted reference range: <=0.034. The reference range was not used to interpret this result as normal/abnormal. MEDHAT (test code = MEDHAT) Reference (Normal) Range (defined by the 99th percentile reference [...] to patient's use of biotin. Lab Interpretation (test code = 40745-8) Normal [facility] [id number] 01:03:38* Test Item Value Reference Range Interpretation Comments TROPONIN I (test code = 8694759010) 0.001 ng/mL See_Comment [Automated message] The system which generated this result transmitted reference range: <=0.034. The reference range was not used to interpret this result as normal/abnormal. MEDHAT (test code = MEDHAT) Reference (Normal) Range (defined by the 99th percentile reference [...] to patient's use of biotin. Lab Interpretation (test code = 70430-6) Normal [facility] [id number] 01:03:38* Test Item Value Reference Range Interpretation Comments TROPONIN I (test code = 6683168013) 0.001 ng/mL See_Comment [Automated message] The system which generated this result transmitted reference range: <=0.034. The reference range was not used to interpret this result as normal/abnormal. MEDHAT (test code = MEDHAT) Reference (Normal) Range (defined by the 99th percentile reference [...] to patient's use of biotin. Lab Interpretation (test code = 48354-2) Normal [facility] [id number] 01:03:38* Test Item Value Reference Range Interpretation Comments TROPONIN I (test code = 5546441351) 0.001 ng/mL See_Comment [Automated message] The system which generated this result transmitted reference range: <=0.034. The reference range was not used to interpret this result as normal/abnormal. MEDHAT (test code = MEDHAT) Reference (Normal) Range (defined by the 99th percentile reference [...] to patient's use of biotin. Lab Interpretation (test code = 17990-8) Normal [facility] [id number] 01:03:38* Test Item Value Reference Range Interpretation Comments TROPONIN I (test code = 7760474087) 0.001 ng/mL See_Comment [Automated message] The system which generated this result transmitted reference range: <=0.034. The reference range was not used to interpret this result as normal/abnormal. MEDHAT (test code = MEDHAT) Reference (Normal) Range (defined by the 99th percentile reference [...] to patient's use of biotin. Lab Interpretation (test code = 02578-5) Normal [facility] [id number] 01:03:38* Test Item Value Reference Range Interpretation Comments TROPONIN I (test code = 6112208774) 0.001 ng/mL See_Comment [Automated message] The system which generated this result transmitted reference range: <=0.034. The reference range was not used to interpret this result as normal/abnormal. MEDHAT (test code = MEDHAT) Reference (Normal) Range (defined by the 99th percentile reference [...] to patient's use of biotin. Lab Interpretation (test code = 93291-6) Normal [facility] [id number] 01:03:38* Test Item Value Reference Range Interpretation Comments TROPONIN I (test code = [id number]) 0.001 ng/mL See_Comment [Automated message] The system which generated this result transmitted reference range: <=0.034. The reference range was not used to interpret this result as normal/abnormal. MEDHAT (test code = MEDHAT) Reference (Normal) Range (defined by the 99th percentile reference [...] to patient's use of biotin. Lab Interpretation (test code = 11975-6) Normal [facility] [id number] 01:03:38* Test Item Value Reference Range Interpretation Comments TROPONIN I (test code = [id number]) 0.001 ng/mL See_Comment [Automated message] The system which generated this result transmitted reference range: <=0.034. The reference range was not used to interpret this result as normal/abnormal. MEDHAT (test code = MEDHAT) Reference (Normal) Range (defined by the 99th percentile reference [...] to patient's use of biotin. Lab Interpretation (test code = 74557-3) Normal [facility] [id number] 01:03:38* Test Item Value Reference Range Interpretation Comments TROPONIN I (test code = 8101308654) 0.001 ng/mL See_Comment [Automated message] The system which generated this result transmitted reference range: <=0.034. The reference range was not used to interpret this result as normal/abnormal. MEDHAT (test code = MEDHAT) Reference (Normal) Range (defined by the 99th percentile reference [...] to patient's use of biotin. Lab Interpretation (test code = 70868-9) Normal [facility] [id number] 01:03:38* Test Item Value Reference Range Interpretation Comments TROPONIN I (test code = 3425471264) 0.001 ng/mL See_Comment [Automated message] The system which generated this result transmitted reference range: <=0.034. The reference range was not used to interpret this result as normal/abnormal. MEDHAT (test code = MEDHAT) Reference (Normal) Range (defined by the 99th percentile reference [...] to patient's use of biotin. Lab Interpretation (test code = 05221-3) Normal [facility] [id number] 01:03:38* Test Item Value Reference Range Interpretation Comments TROPONIN I (test code = 1775066901) 0.001 ng/mL See_Comment [Automated message] The system which generated this result transmitted reference range: <=0.034. The reference range was not used to interpret this result as normal/abnormal. MEDHAT (test code = MEDHAT) Reference (Normal) Range (defined by the 99th percentile reference [...] to patient's use of biotin. Lab Interpretation (test code = 96521-8) Normal [facility] [id number] 01:03:38* Test Item Value Reference Range Interpretation Comments TROPONIN I (test code = 1249959481) 0.001 ng/mL See_Comment [Automated message] The system which generated this result transmitted reference range: <=0.034. The reference range was not used to interpret this result as normal/abnormal. MEDHAT (test code = MEDHAT) Reference (Normal) Range (defined by the 99th percentile reference [...] to patient's use of biotin. Lab Interpretation (test code = 90306-1) Normal [facility] [id number] 01:03:38* Test Item Value Reference Range Interpretation Comments TROPONIN I (test code = 5221702530) 0.001 ng/mL See_Comment [Automated message] The system which generated this result transmitted reference range: <=0.034. The reference range was not used to interpret this result as normal/abnormal. MEDHAT (test code = MEDHAT) Reference (Normal) Range (defined by the 99th percentile reference [...] to patient's use of biotin. Lab Interpretation (test code = 19300-2) Normal [facility] [id number] 01:03:38* Test Item Value Reference Range Interpretation Comments TROPONIN I (test code = 0214545292) 0.001 ng/mL See_Comment [Automated message] The system which generated this result transmitted reference range: <=0.034. The reference range was not used to interpret this result as normal/abnormal. MEDHAT (test code = MEDHAT) Reference (Normal) Range (defined by the 99th percentile reference [...] to patient's use of biotin. Lab Interpretation (test code = 78755-6) Normal [facility] [id number] 01:03:38* Test Item Value Reference Range Interpretation Comments TROPONIN I (test code = 3043649794) 0.001 ng/mL See_Comment [Automated message] The system which generated this result transmitted reference range: <=0.034. The reference range was not used to interpret this result as normal/abnormal. MEDHAT (test code = MEDHAT) Reference (Normal) Range (defined by the 99th percentile reference [...] to patient's use of biotin. Lab Interpretation (test code = 73990-5) Normal [facility] [id number] 01:03:38* Test Item Value Reference Range Interpretation Comments TROPONIN I (test code = 8050090803) 0.001 ng/mL See_Comment [Automated message] The system which generated this result transmitted reference range: <=0.034. The reference range was not used to interpret this result as normal/abnormal. MEDHAT (test code = MEDHAT) Reference (Normal) Range (defined by the 99th percentile reference [...] to patient's use of biotin. Lab Interpretation (test code = 52013-9) Normal [facility] and Screen - ONCE [id number] 21:06:03* Test Item Value Reference Range Interpretation Comme nts ABO & RH (test code = 20) A Positive Performed at [facility] Blood [address]Toll Free: [phone] No. [id number] IAT (test code = 1185) Negative Performed at [facility] Blood [address] [address]Raxz Free: [phone] No. [id number] [facility] and Screen - ONCE [id number] 21:06:03* Test Item Value Reference Range Interpretation Comme nts ABO & RH (test code = 20) A Positive Performed at [facility] Blood [place] [address]Toll Free: [phone] No. [id number] IAT (test code = 1185) Negative Performed at [facility] Blood [address] [address]Ehcd Free: [phone] No. [id number] [facility] and Screen - ONCE [id number] 21:06:03* Test Item Value Reference Range Interpretation Comme nts ABO & RH (test code = 20) A Positive Performed at [facility] Blood [address] [address]Qpxz Free: [phone] No. [id number] IAT (test code = 1185) Negative Performed at [facility] Blood [place] [address]Toll Free: [phone] No. [id number] [facility] Qtxzqbk4260-81-29 21:06:03* Test Item Value Reference Range Interpretation Comme nts ABO & RH (test code = 20) A Positive Performed at [address]Toll Free: [phone] No. [id number] IAT (test code = 1185) Negative Performed at [place] [address]Toll Free: [phone] No. [id number] [facility] and Screen - ONCE [id number] 21:06:03* Test Item Value Reference Range Interpretation Comme nts ABO & RH (test code = 20) A Positive Performed at [address]Toll Free: [phone] No. [id number] IAT (test code = 1185) Negative Performed at [place] [address]Toll Free: [phone] No. [id number] [facility] and Screen - ONCE Mqzlzqv1657-30-07 21:06:03* Test Item Value Reference Range Interpretation Comme nts ABO & RH (test code = 20) A Positive Performed at [address]Toll Free: [phone] No. [id number] IAT (test code = 1185) Negative Performed at [place] [address]Toll Free: [phone] No. [id number] [facility] and Screen - ONCE Isoemle4471-25-89 21:06:03* Test Item Value Reference Range Interpretation Comme nts ABO & RH (test code = 20) A Positive Performed at [facility] Blood [place] [address]Toll Free: [phone] No. [id number] IAT (test code = 1185) Negative Performed at [place] [address]Toll Free: [phone] No. [id number] [facility] and Screen - ONCE Jiyrngp4820-80-67 21:06:03* Test Item Value Reference Range Interpretation Comme nts ABO & RH (test code = 20) A Positive Performed at [place] [address]Toll Free: [phone] No. [id number] IAT (test code = 1185) Negative Performed at [place] [address]Toll Free: [phone] No. [id number] [facility] and Screen - ONCE Vbwlovh7580-75-22 21:06:03* Test Item Value Reference Range Interpretation Comme nts ABO & RH (test code = 20) A Positive Performed at [place] [address]Toll Free: [phone] No. [id number] IAT (test code = 1185) Negative Performed at [place] [address]Toll Free: [phone] No. [id number] [facility] and Screen - ONCE [id number] 21:06:03* Test Item Value Reference Range Interpretation Comme nts ABO & RH (test code = 20) A Positive Performed at [place] [address]Toll Free: [phone] No. [id number] IAT (test code = 1185) Negative Performed at [facility] Blood [place] [address]Toll Free: [phone] No. [id number] [facility] Ejgnzdh6202-61-03 21:06:03* Test Item Value Reference Range Interpretation Comme nts ABO & RH (test code = 20) A Positive Performed at [facility] Blood [place] [address]Toll Free: [phone] No. [id number] IAT (test code = 1185) Negative Performed at [place] [address]Toll Free: [phone] No. [id number] [facility] and Screen - ONCE [id number] 21:06:03* Test Item Value Reference Range Interpretation Comme nts ABO & RH (test code = 20) A Positive Performed at [facility] Blood [place] [address]Toll Free: [phone] No. [id number] IAT (test code = 1185) Negative Performed at [place] [address]Toll Free: [phone] No. [id number] [facility] and Screen - ONCE [id number] 21:06:03* Test Item Value Reference Range Interpretation Comme nts ABO & RH (test code = 20) A Positive Performed at [facility] Blood [place] [address]Toll Free: [phone] No. [id number] IAT (test code = 1185) Negative Performed at [address]Toll Free: [phone] No. [id number] [facility] and Screen - ONCE Fampwjq2904-76-01 21:06:03* Test Item Value Reference Range Interpretation Comme nts ABO & RH (test code = 20) A Positive Performed at [place] [address]Toll Free: [phone] No. [id number] IAT (test code = 1185) Negative Performed at [place] [address]Toll Free: [phone] No. [id number] [facility] and Screen - ONCE Rilovei4144-92-19 21:06:03* Test Item Value Reference Range Interpretation Comme nts ABO & RH (test code = 20) A Positive Performed at [place] [address]Toll Free: [phone] No. [id number] IAT (test code = 1185) Negative Performed at [address]Toll Free: [phone] No. [id number] [facility] and Screen - ONCE [id number] 21:06:03* Test Item Value Reference Range Interpretation Comme nts ABO & RH (test code = 20) A Positive Performed at [place] [address]Toll Free: [phone] No. [id number] IAT (test code = 1185) Negative Performed at [address]Toll Free: [phone] No. [id number] [facility] and Screen - ONCE [id number] 21:06:03* Test Item Value Reference Range Interpretation Comme nts ABO & RH (test code = 20) A Positive Performed at [address]Toll Free: [phone] No. [id number] IAT (test code = 1185) Negative Performed at [address] [address]Lwxc Free: [phone] No. [id number] [facility] and Screen - ONCE [id number] 21:06:03* Test Item Value Reference Range Interpretation Comme nts ABO & RH (test code = 20) A Positive Performed at [place] [address]Toll Free: [phone] No. [id number] IAT (test code = 1185) Negative Performed at [address]Toll Free: [phone] No. [id number] [facility] and Screen - ONCE [id number] 21:06:03* Test Item Value Reference Range Interpretation Comme nts ABO & RH (test code = 20) A Positive Performed at [place] [address]Toll Free: [phone] No. [id number] IAT (test code = 1185) Negative Performed at [address]Toll Free: [phone] No. [id number] [facility] and Screen - ONCE [id number] 21:06:03* Test Item Value Reference Range Interpretation Comme nts ABO & RH (test code = 20) A Positive Performed at [address]Toll Free: [phone] No. [id number] IAT (test code = 1185) Negative Performed at [place] [address]Toll Free: [phone] No. [id number] [facility] and Screen - ONCE [id number] 21:06:03* Test Item Value Reference Range Interpretation Comme nts ABO & RH (test code = 20) A Positive Performed at [place] [address]Toll Free: [phone] No. [id number] IAT (test code = 1185) Negative Performed at [place] [address]Toll Free: [phone] No. [id number] [facility] [id number] 21:06:03* Test Item Value Reference Range Interpretation Comme nts ABO & RH (test code = 20) A Positive Performed at [place] [address]Toll Free: [phone] No. [id number] IAT (test code = 1185) Negative Performed at [address]Toll Free: [phone] No. [id number] [facility] and Screen - ONCE [id number] 21:06:03* Test Item Value Reference Range Interpretation Comme nts ABO & RH (test code = 20) A Positive Performed at [address]Toll Free: [phone] No. [id number] IAT (test code = 1185) Negative Performed at [address]Toll Free: [phone] No. [id number] [facility] [id number] 21:06:03* Test Item Value Reference Range Interpretation Comme nts ABO & RH (test code = 20) A Positive Performed at [address]Toll Free: [phone] No. [id number] IAT (test code = 1185) Negative Performed at [facility] Blood [place] [address]Toll Free: [phone] No. [id number] [facility] Confirm[facility] (Lab Only)2022-04-04 20:58:06* Test Item Value Reference Range Interpretation Comme nts ABO & RH (test code = 20) A Positive Performed at [place] [address]Toll Free: [phone] No. [id number] [facility] Confirmation (Lab Only)2022-04-04 20:58:06* Test Item Value Reference Range Interpretation Comme nts ABO & RH (test code = 20) A Positive Performed at [place] [address]Toll Free: [phone] No. [id number] [facility] Confirmation (Lab Only)2022-04-04 20:58:06* Test Item Value Reference Range Interpretation Comme nts ABO & RH (test code = 20) A Positive Performed at [place] [address]Toll Free: [phone] No. [id number] [facility] Confirmation (Lab Only)2022-04-04 20:58:06* Test Item Value Reference Range Interpretation Comme nts ABO & RH (test code = 20) A Positive Performed at [facility] Blood [place] [address]Toll Free: [phone] No. [id number] [facility] Confirmation (Lab Only)2022-04-04 20:58:06* Test Item Value Reference Range Interpretation Comme nts ABO & RH (test code = 20) A Positive Performed at [place] [address]Toll Free: [phone] No. [id number] [facility] Confirmation (Lab Only)2022-04-04 20:58:06* Test Item Value Reference Range Interpretation Comme nts ABO & RH (test code = 20) A Positive Performed at [place] [address]Toll Free: [phone] No. [id number] [facility] Confirmation (Lab Only)2022-04-04 20:58:06* Test Item Value Reference Range Interpretation Comme nts ABO & RH (test code = 20) A Positive Performed at [place] [address]Toll Free: [phone] No. [id number] [facility] Confirmation (Lab Only)2022-04-04 20:58:06* Test Item Value Reference Range Interpretation Comme nts ABO & RH (test code = 20) A Positive Performed at [place] [address]Toll Free: [phone] No. [id number] [facility] Confirmation (Lab Only)2022-04-04 20:58:06* Test Item Value Reference Range Interpretation Comme nts ABO & RH (test code = 20) A Positive Performed at [place] [address]Toll Free: [phone] No. [id number] [facility] Confirmation (Lab Only)2022-04-04 20:58:06* Test Item Value Reference Range Interpretation Comme nts ABO & RH (test code = 20) A Positive Performed at [place] [address]Toll Free: [phone] No. [id number] [facility] Confirmation (Lab Only)2022-04-04 20:58:06* Test Item Value Reference Range Interpretation Comme nts ABO & RH (test code = 20) A Positive Performed at [place] [address]Toll Free: [phone] No. [id number] [facility] Confirmation (Lab Only)2022-04-04 20:58:06* Test Item Value Reference Range Interpretation Comme nts ABO & RH (test code = 20) A Positive Performed at [facility] Blood [place] [address]Toll Free: [phone] No. [id number] [facility] Confirmation (Lab Only)2022-04-04 20:58:06* Test Item Value Reference Range Interpretation Comme nts ABO & RH (test code = 20) A Positive Performed at [place] [address]Toll Free: [phone] No. [id number] [facility] Confirmation (Lab Only)2022-04-04 20:58:06* Test Item Value Reference Range Interpretation Comme nts ABO & RH (test code = 20) A Positive Performed at [facility] Blood [place] [address]Toll Free: [phone] No. [id number] [facility] Confirmation (Lab Only)2022-04-04 20:58:06* Test Item Value Reference Range Interpretation Comme nts ABO & RH (test code = 20) A Positive Performed at [facility] Blood [place] [address]Toll Free: [phone] No. [id number] [facility] Confirmation (Lab Only)2022-04-04 20:58:06* Test Item Value Reference Range Interpretation Comme nts ABO & RH (test code = 20) A Positive Performed at [facility] Blood [place] [address]Toll Free: [phone] No. [id number] [facility] Confirmation (Lab Only)2022-04-04 20:58:06* Test Item Value Reference Range Interpretation Comme nts ABO & RH (test code = 20) A Positive Performed at [place] [address]Toll Free: [phone] No. [id number] [facility] Confirmation (Lab Only)2022-04-04 20:58:06* Test Item Value Reference Range Interpretation Comme nts ABO & RH (test code = 20) A Positive Performed at [place] [address]Toll Free: [phone] No. [id number] [facility] Confirmation (Lab Only)2022-04-04 20:58:06* Test Item Value Reference Range Interpretation Comme nts ABO & RH (test code = 20) A Positive Performed at [place] [address]Toll Free: [phone] No. [id number] [facility] Confirmation (Lab Only)2022-04-04 20:58:06* Test Item Value Reference Range Interpretation Comme nts ABO & RH (test code = 20) A Positive Performed at [place] [address]Toll Free: [phone] No. [id number] [facility] Confirmation (Lab Only)2022-04-04 20:58:06* Test Item Value Reference Range Interpretation Comme nts ABO & RH (test code = 20) A Positive Performed at [place] [address]Toll Free: [phone] No. [id number] [facility] Confirmation (Lab Only)2022-04-04 20:58:06* Test Item Value Reference Range Interpretation Comme nts ABO & RH (test code = 20) A Positive Performed at [place] [address]Toll Free: [phone] No. [id number] [facility] Only)2022-04-04 20:58:06* Test Item Value Reference Range Interpretation Comme nts ABO & RH (test code = 20) A Positive Performed at [facility] Laboratory [facility] Blood [address] [place] [address] Free: [phone] No. [id number] [facility] Confirmation (Lab Only)2022-04-04 20:58:06* Test Item Value Reference Range Interpretation Comme nts ABO & RH (test code = 20) A Positive Performed at [facility] Laboratory [facility] Blood [address] Free: [phone] No. [id number] [facility], [id number] 19:40:46* Test Item Value Reference Range Interpretation Comme nts PREG SERUM (test code = 7106792720) Negative MEDHAT (test code = MEDHAT) Less than 10 IU/L. ?If low titer or ectopic is suspected, resubmit specimen in 48-72 hours. [facility], [id number] 19:40:46* Test Item Value Reference Range Interpretation Comme nts PREG SERUM (test code = 6552561622) Negative MEDHAT (test code = MEDHAT) Less than 10 IU/L. ?If low titer or ectopic is suspected, resubmit specimen in 48-72 hours. [facility], [id number] 19:40:46* Test Item Value Reference Range Interpretation Comme nts PREG SERUM (test code = 0884400319) Negative MEDHAT (test code = MEDHAT) Less than 10 IU/L. ?If low titer or ectopic is suspected, resubmit specimen in 48-72 hours. [facility], [id number] 19:40:46* Test Item Value Reference Range Interpretation Comme nts PREG SERUM (test code = 3077293077) Negative MEDHAT (test code = MEDHAT) Less than 10 IU/L. ?If low titer or ectopic is suspected, resubmit specimen in 48-72 hours. [facility], [id number] 19:40:46* Test Item Value Reference Range Interpretation Comme nts PREG SERUM (test code = 3607623782) Negative MEDHAT (test code = MEDHAT) Less than 10 IU/L. ?If low titer or ectopic is suspected, resubmit specimen in 48-72 hours. [facility], [id number] 19:40:46* Test Item Value Reference Range Interpretation Comme nts PREG SERUM (test code = 0325687605) Negative MEDHAT (test code = MEDHAT) Less than 10 IU/L. ?If low titer or ectopic is suspected, resubmit specimen in 48-72 hours. [facility], [id number] 19:40:46* Test Item Value Reference Range Interpretation Comme nts PREG SERUM (test code = 1871286786) Negative MEDHAT (test code = MEDHAT) Less than 10 IU/L. ?If low titer or ectopic is suspected, resubmit specimen in 48-72 hours. [facility], [id number] 19:40:46* Test Item Value Reference Range Interpretation Comme nts PREG SERUM (test code = 7468762846) Negative MEDHAT (test code = MEDHAT) Less than 10 IU/L. ?If low titer or ectopic is suspected, resubmit specimen in 48-72 hours. [facility], [id number] 19:40:46* Test Item Value Reference Range Interpretation Comme nts PREG SERUM (test code = 8382342713) Negative MEDHAT (test code = MEDHAT) Less than 10 IU/L. ?If low titer or ectopic is suspected, resubmit specimen in 48-72 hours. [facility], [id number] 19:40:46* Test Item Value Reference Range Interpretation Comme nts PREG SERUM (test code = 3369476750) Negative MEDHAT (test code = MEDHAT) Less than 10 IU/L. ?If low titer or ectopic is suspected, resubmit specimen in 48-72 hours. [facility], [id number] 19:40:46* Test Item Value Reference Range Interpretation Comme nts PREG SERUM (test code = 4238882943) Negative MEDHAT (test code = MEDHAT) Less than 10 IU/L. ?If low titer or ectopic is suspected, resubmit specimen in 48-72 hours. [facility], [id number] 19:40:46* Test Item Value Reference Range Interpretation Comme nts PREG SERUM (test code = 0035052015) Negative MEDHAT (test code = MEDHAT) Less than 10 IU/L. ?If low titer or ectopic is suspected, resubmit specimen in 48-72 hours. [facility], [id number] 19:40:46* Test Item Value Reference Range Interpretation Comme nts PREG SERUM (test code = 0006499562) Negative MEDHAT (test code = MEDHAT) Less than 10 IU/L. ?If low titer or ectopic is suspected, resubmit specimen in 48-72 hours. [facility], [id number] 19:40:46* Test Item Value Reference Range Interpretation Comme nts PREG SERUM (test code = 5869180737) Negative MEDHAT (test code = MEDHAT) Less than 10 IU/L. ?If low titer or ectopic is suspected, resubmit specimen in 48-72 hours. [facility] [facility] VIDGJ2010-26-09 19:40:46* Test Item Value Reference Range Interpretation Comme nts PREG SERUM (test code = 8952346322) Negative MEDHAT (test code = MEDHAT) Less than 10 IU/L. ?If low titer or ectopic is suspected, resubmit specimen in 48-72 hours. [facility] JAEQY3330-03-04 19:40:46* Test Item Value Reference Range Interpretation Comme nts PREG SERUM (test code = 7741650501) Negative MEDHAT (test code = MEDHAT) Less than 10 IU/L. ?If low titer or ectopic is suspected, resubmit specimen in 48-72 hours. [facility], OIOTR8541-73-20 19:40:46* Test Item Value Reference Range Interpretation Comme nts PREG SERUM (test code = 0890893769) Negative MEDHAT (test code = MEDHAT) Less than 10 IU/L. ?If low titer or ectopic is suspected, resubmit specimen in 48-72 hours. [facility] ZETIG7578-02-09 19:40:46* Test Item Value Reference Range Interpretation Comme nts PREG SERUM (test code = 9668554727) Negative MEDHAT (test code = MEDHAT) Less than 10 IU/L. ?If low titer or ectopic is suspected, resubmit specimen in 48-72 hours. [facility], [id number] 19:40:46* Test Item Value Reference Range Interpretation Comme nts PREG SERUM (test code = 5274095464) Negative MEDHAT (test code = MEDHAT) Less than 10 IU/L. ?If low titer or ectopic is suspected, resubmit specimen in 48-72 hours. [facility], [id number] 19:40:46* Test Item Value Reference Range Interpretation Comme nts PREG SERUM (test code = 6454038454) Negative MEDHAT (test code = MEDHAT) Less than 10 IU/L. ?If low titer or ectopic is suspected, resubmit specimen in 48-72 hours. [facility], [id number] 19:40:46* Test Item Value Reference Range Interpretation Comme nts PREG SERUM (test code = 7401853262) Negative MEDHAT (test code = MEDHAT) Less than 10 IU/L. ?If low titer or ectopic is suspected, resubmit specimen in 48-72 hours. [facility], [id number] 19:40:46* Test Item Value Reference Range Interpretation Comme nts PREG SERUM (test code = 9728011743) Negative MEDHAT (test code = MEDHAT) Less than 10 IU/L. ?If low titer or ectopic is suspected, resubmit specimen in 48-72 hours. [facility], [id number] 19:40:46* Test Item Value Reference Range Interpretation Comme nts PREG SERUM (test code = 1536200117) Negative MEDHAT (test code = MEDHAT) Less than 10 IU/L. ?If low titer or ectopic is suspected, resubmit specimen in 48-72 hours. [facility], [id number] 19:40:46* Test Item Value Reference Range Interpretation Comme nts PREG SERUM (test code = 3820527641) Negative MEDHAT (test code = MEDHAT) Less than 10 IU/L. ?If low titer or ectopic is suspected, resubmit specimen in 48-72 hours. [facility] WITH PNUV4020-32-60 18:55:21* Test Item Value Reference Range Interpretation Comme nts WBC (test code = 6690-2) See_Comment H [Automated message] The system which generated this result transmitted reference range: 4.30 - 11.10 10*3/?L. The reference range was not used to interpret this result as normal/abnormal. RBC (test code = 789-8) See_Comment [Automated message] The system which generated this result transmitted reference range: 3.93 - 5.25 10*6/?L. The reference range was not used to interpret this result as normal/abnormal. HGB (test code = 718-7) 13.6 g/dL 11.6-15 HCT (test code = 4544-3) 41.8 % 35.7-45.2 MCV (test code = 787-2) 88.2 fL 80.6-95.5 MCH (test code = 785-6) 28.7 pg 25.9-32.8 MCHC (test code = 786-4) 32.5 g/dL 31.6-35.1 RDW-SD (test code = 42606-0) 43.0 fL 39-49.9 RDW-CV (test code = 788-0) 13.2 % 12-15.5 PLT (test code = 777-3) See_Comment [Automated message] The system which generated this result transmitted reference range: 166 - 358 10*3/?L. The reference range was not used to interpret this result as normal/abnormal. MPV (test code = 61763-5) 10.8 fL 9.5-12.9 NRBC/100 WBC (test code = 9600918257) See_Comment [Automated message] The system which generated this result transmitted reference range: 0.0 - 10.0 /100 WBCs. The reference range was not used to interpret this result as normal/abnormal. NRBC x10^3 (test code = 7678462286) See_Comment [Automated message] The system which generated this result transmitted reference range: 10*3/?L. The reference range was not used to interpret this result as normal/abnormal. GRAN MAT (NEUT) % (test code = 770-8) 82.1 % IMM GRAN % (test code = 3228040477) 0.60 % LYMPH % (test code = 736-9) 12.4 % MONO % (test code = 5905-5) 4.3 % EOS % (test code = 713-8) 0.1 % BASO % (test code = 706-2) 0.5 % GRAN MAT x10^3(ANC) (test code = 1169710110) 10.62 10*3/uL 1.88-7.09 H IMM GRAN x10^3 (test code = 7321100137) 0.08 10*3/uL 0-0.06 H LYMPH x10^3 (test code = 731-0) 1.60 10*3/uL 1.32-3.29 MONO x10^3 (test code = 742-7) 0.56 10*3/uL 0.33-0.92 EOS x10^3 (test code = 711-2) 0.03-0.39 L BASO x10^3 (test code = 704-7) 0.06 10*3/uL 0.01-0.07 Lab Interpretation (test code = 01543-0) Abnormal [facility]OL[facility] PAN[facility] (29528)2022-04-04 18:55:21* Test Item Value Reference Range Interpretation Comme nts NA (test code = 1010091658) 141 mmol/L 135-145 K (test code = 3977978392) 4.5 mmol/L 3.5-5 CL (test code = 0515254822) 103 mmol/L 98-108 CO2 TOTAL (test code = 6155742512) 27 mmol/L 23-31 AGAP (test code = 7628193400) 2-16 BUN (test code = 3383429803) 14 mg/dL 7-23 GLUCOSE (test code = 6984167736) 115 mg/dL 70-110 H CREATININE (test code = 7280575085) 0.62 mg/dL 0.5-1.04 TOTAL BILI (test code = 3143736039) 0.7 mg/dL 0.1-1.1 CALCIUM (test code = 6388832064) 9.5 mg/dL 8.6-10.6 T PROTEIN (test code = 7814674952) 7.3 g/dL 6.3-8.2 ALBUMIN (test code = 1923145626) 4.7 g/dL 3.5-5 ALK PHOS (test code = 6696701925) 65 U/L 34-122 ALTv (test code = 1742-6) 22 U/L 5-35 AST(SGOT) (test code = 9862245081) 39 U/L 13-40 eGFR (test code = 3520673749) mL/min/1.73m2 MEDHAT (test code = MEDHAT) Association [...] or abnormalities in imaging tests). Lab Interpretation (test code = 56662-7) Abnormal [facility] 18:55:21* Test Item Value Reference Range Interpretation Comme nts LIPASE (test code = 8809225205) 70 U/L 0-220 Lab Interpretation (test cod e = 93091-2) Normal [facility] 18:55:21* Test Item Value Reference Range Interpretation Comme nts LIPASE (test code = 7865252464) 70 U/L 0-220 Lab Interpretation (test cod e = 13238-3) Normal [facility] (00082)2022-04-04 18:55:21* Test Item Value Reference Range Interpretation Comme nts NA (test code = 7673642332) 141 mmol/L 135-145 K (test code = 3145065276) 4.5 mmol/L 3.5-5 CL (test code = 2198695325) 103 mmol/L 98-108 CO2 TOTAL (test code = 8543946746) 27 mmol/L 23-31 AGAP (test code = 9906784305) 2-16 BUN (test code = 0354297840) 14 mg/dL 7-23 GLUCOSE (test code = 7732367080) 115 mg/dL 70-110 H CREATININE (test code = 0262565312) 0.62 mg/dL 0.5-1.04 TOTAL BILI (test code = 8891560757) 0.7 mg/dL 0.1-1.1 CALCIUM (test code = 6671583274) 9.5 mg/dL 8.6-10.6 T PROTEIN (test code = 8059746335) 7.3 g/dL 6.3-8.2 ALBUMIN (test code = 5562658585) 4.7 g/dL 3.5-5 ALK PHOS (test code = 7352226899) 65 U/L 34-122 ALTv (test code = 1742-6) 22 U/L 5-35 AST(SGOT) (test code = 1936644260) 39 U/L 13-40 eGFR (test code = 3835428037) mL/min/1.73m2 MEDHAT (test code = MEDHAT) Association [...] or abnormalities in imaging tests). Lab Interpretation (test code = 38856-7) Abnormal [facility]2022-10-03 18:55:21* Test Item Value Reference Range Interpretation Comme nts LIPASE (test code = 8071471780) 70 U/L 0-220 Lab Interpretation (test cod e = 20615-7) Normal [facility]2022-10-03 18:55:21* Test Item Value Reference Range Interpretation Comme nts LIPASE (test code = 1571048008) 70 U/L 0-220 Lab Interpretation (test cod e = 14675-6) Normal [facility]2022-10-03 18:55:21* Test Item Value Reference Range Interpretation Comme nts LIPASE (test code = 3544099456) 70 U/L 0-220 Lab Interpretation (test cod e = 41029-3) Normal [place] 333922-10-03 18:55:21* Test Item Value Reference Range Interpretation Comme nts LIPASE (test code = 9275653393) 70 U/L 0-220 Lab Interpretation (test cod e = 19025-6) [address]10-03 18:55:21* Test Item Value Reference Range Interpretation Comme nts LIPASE (test code = 6760253813) 70 U/L 0-220 Lab Interpretation (test cod e = 01355-9) [address]10-03 18:55:21* Test Item Value Reference Range Interpretation Comme nts LIPASE (test code = 5826355522) 70 U/L 0-220 Lab Interpretation (test cod e = 48722-6) [place] [address]-03 18:55:21* Test Item Value Reference Range Interpretation Comme nts LIPASE (test code = 8414338259) 70 U/L 0-220 Lab Interpretation (test cod e = 16178-2) [address]10-03 18:55:21* Test Item Value Reference Range Interpretation Comme nts LIPASE (test code = 8769328296) 70 U/L 0-220 Lab Interpretation (test cod e = 39374-4) [address]10-03 18:55:21* Test Item Value Reference Range Interpretation Comme nts LIPASE (test code = 0678019250) 70 U/L 0-220 Lab Interpretation (test cod e = 91245-3) [address]10-03 18:55:21* Test Item Value Reference Range Interpretation Comme nts LIPASE (test code = 3841089604) 70 U/L 0-220 Lab Interpretation (test cod e = 45600-4) [address]10-03 18:55:21* Test Item Value Reference Range Interpretation Comme nts LIPASE (test code = 6498608058) 70 U/L 0-220 Lab Interpretation (test cod e = 23716-2) [address]03 18:55:21* Test Item Value Reference Range Interpretation Comme nts LIPASE (test code = 7789838930) 70 U/L 0-220 Lab Interpretation (test cod e = 75077-7) [address]03 18:55:21* Test Item Value Reference Range Interpretation Comme nts LIPASE (test code = 7177440410) 70 U/L 0-220 Lab Interpretation (test cod e = 20817-0) [facility] Test Item Value Reference Range Interpretation Comme nts LIPASE (test code = 2503647424) 70 U/L 0-220 Lab Interpretation (test cod e = 32297-8) [address]10-03 18:55:21* Test Item Value Reference Range Interpretation Comme nts LIPASE (test code = 1211465137) 70 U/L 0-220 Lab Interpretation (test cod e = 53000-9) [address] 18:55:21* Test Item Value Reference Range Interpretation Comme nts LIPASE (test code = 4347090628) 70 U/L 0-220 Lab Interpretation (test cod e = 86660-3) [address] 18:55:21* Test Item Value Reference Range Interpretation Comme nts LIPASE (test code = 5360176389) 70 U/L 0-220 Lab Interpretation (test cod e = 83091-9) [address] 18:55:21* Test Item Value Reference Range Interpretation Comme nts LIPASE (test code = 4426525501) 70 U/L 0-220 Lab Interpretation (test cod e = 45404-7) [address] 18:55:21* Test Item Value Reference Range Interpretation Comme nts LIPASE (test code = 8127343600) 70 U/L 0-220 Lab Interpretation (test cod e = 25013-8) [facility]* Test Item Value Reference Range Interpretation Comme nts LIPASE (test code = 1224571767) 70 U/L 0-220 Lab Interpretation (test cod e = 96685-4) [address] 18:55:21* Test Item Value Reference Range Interpretation Comme nts LIPASE (test code = 4215511451) 70 U/L 0-220 Lab Interpretation (test cod e = 53377-2) [place] [address] 18:55:21* Test Item Value Reference Range Interpretation Comme nts LIPASE (test code = 0662049396) 70 U/L 0-220 Lab Interpretation (test cod e = 35523-3) Normal [facility]. METABOLIC PANEL (71540)2022-04-01 04:58:46* Test Item Value Reference Range Interpretation Comme nts NA (test code = 8128755374) 139 mmol/L 135-145 K (test code = 9472907718) 5.0 mmol/L 3.5-5 CL (test code = 3213147757) 102 mmol/L 98-108 CO2 TOTAL (test code = 9017597568) 27 mmol/L 23-31 AGAP (test code = 2714771309) 2-16 BUN (test code = 4483821056) 13 mg/dL 7-23 GLUCOSE (test code = 9579364403) 104 mg/dL 70-110 CREATININE (test code = 6296270285) 0.69 mg/dL 0.5-1.04 TOTAL BILI (test code = 0181268702) 0.5 mg/dL 0.1-1.1 CALCIUM (test code = 3535423509) 9.6 mg/dL 8.6-10.6 T PROTEIN (test code = 1143823279) 7.2 g/dL 6.3-8.2 ALBUMIN (test code = 3098855399) 4.6 g/dL 3.5-5 ALK PHOS (test code = 5813324356) 60 U/L 34-122 ALTv (test code = 1742-6) 15 U/L 5-35 AST(SGOT) (test code = 8141781000) 26 U/L 13-40 eGFR (test code = 3392634916) mL/min/1.73m2 MEDHAT (test code = MEDHAT) Association [...] in imaging tests). [facility] 04:58:25* Test Item Value Reference Range Interpretation Comme nts LIPASE (test code = 5037172903) 71 U/L 0-220 Lab Interpretation (test cod e = 43739-7) Normal [facility] WITH MULX6828-83-78 04:46:42* Test Item Value Reference Range Interpretation Comme nts WBC (test code = 6690-2) See_Comment [Automated [employer]] The system which generated this result transmitted reference range: 4.30 - 11.10 10*3/?L. The reference range was not used to interpret this result as normal/abnormal. RBC (test code = 789-8) See_Comment [Automated [employer]] The system which generated this result transmitted reference range: 3.93 - 5.25 10*6/?L. The reference range was not used to interpret this result as normal/abnormal. HGB (test code = 718-7) 13.7 g/dL 11.6-15 HCT (test code = 4544-3) 42.7 % 35.7-45.2 MCV (test code = 787-2) 88.4 fL 80.6-95.5 MCH (test code = 785-6) 28.4 pg 25.9-32.8 MCHC (test code = 786-4) 32.1 g/dL 31.6-35.1 RDW-SD (test code = 59100-9) 42.5 fL 39-49.9 RDW-CV (test code = 788-0) 13.2 % 12-15.5 PLT (test code = 777-3) See_Comment [Automated messa ge] The system which generated this result transmitted reference range: 166 - 358 10*3/?L. The reference range was not used to interpret this result as normal/abnormal. MPV (test code = 62125-2) 10.4 fL 9.5-12.9 NRBC/100 WBC (test code = 7512378626) See_Comment [Automated me ssage] The system which generated this result transmitted reference range: 0.0 - 10.0 /100 WBCs. The reference range was not used to interpret this result as normal/abnormal. NRBC x10^3 (test code = 1257837676) See_Comment [Automated me ssage] The system which generated this result transmitted reference range: 10*3/?L. The reference range was not used to interpret this result as normal/abnormal. GRAN MAT (NEUT) % (test code = 770-8) 69.5 % IMM GRAN % (test code = 5280312240) 0.40 % LYMPH % (test code = 736-9) 23.3 % MONO % (test code = 5905-5) 5.3 % EOS % (test code = 713-8) 0.7 % BASO % (test code = 706-2) 0.8 % GRAN MAT x10^3(ANC) (test code = 0327558426) 5.73 10*3/uL 1.88-7.09 IMM GRAN x10^3 (test code = 3913788051) 0.03 10*3/uL 0-0.06 LYMPH x10^3 (test code = 731-0) 1.92 10*3/uL 1.32-3.29 MONO x10^3 (test code = 742-7) 0.44 10*3/uL 0.33-0.92 EOS x10^3 (test code = 711-2) 0.06 10*3/uL 0.03-0.39 BASO x10^3 (test code = 704-7) 0.07 10*3/uL 0.01-0.07 [facility] VHLA9252-89-63 04:37:00* Test Item Value Reference Range Interpretation Comme nts POCT PREG (test code = 1605) negative Lab Interpretation (test cod e = 46345-5) Normal [facility] FIXJ4415-00-79 04:37:00* Test Item Value Reference Range Interpretation Comme nts POCT PREG (test code = 1605) negative Lab Interpretation (test cod e = 87181-5) Normal [facility] CampusCoronavirus NAAT, MUXH444106-24-18 14:05:00* Test Item Value Reference Range Interpretation Comme nts Coronavirus NAAT, COVD19 (test code = EXRZEZQ6QGYM) SARS results, including Patient Name, or MRN, were Coronavirus NAAT, COVD19 (test code = TSOHYRM6OXGV8.1) ical-devices/emergenc p-zsz-enjehfnttrkfwv. SARS-CoV-2 NAAT Result: (test code = SARS-CoV-2 NAAT Result:) Positive by RT-PCR A COVID-19 Status: AsymptomaticHCG, Urine Qual (LAB)2021-07-09 14:05:00* Test Item Value Reference Range Interpretation Comme nts HCG, Urine, Qual (test code = HCGU) Negative Negative Drug Screen,Vcyog4895-83-29 14:05:00* Test Item Value Reference Range Interpretation [...] = UPROP) Negative Negative UA, Urinalysis w Lhfwdrxy2799-65-65 14:05:00* Test Item Value Reference Range Interpretation Comme nts Color,Urine (test code = UCOL) Yellow Yellow Clarity,Urine (test code = UCLAR) Clear Clear Ph, Urine (test code = UPH) 8.5 5.0-8.0 H Specific [employer],Urine (test code = USG) 1.020 1.005-1.030 N [...] None Seen A Complete Blood Count Auto Kjcy9827-35-28 13:20:00* Test Item Value Reference Range Interpretation [...] code = NRBCP) 0 % Comprehensive Metabolic Cskcp6360-58-16 13:20:00* Test Item Value Reference Range Interpretation [...] = ALP) 72 U/L 46-116 N Ethanol Csqrj5888-39-86 13:20:00* Test Item Value Reference Range Interpretation Comme nts Ethanol (test code = ETOH) < 3 mg/dL The pharmacologi torito response to blood alcohol levels mayvary from individual to individual. The fatal concentrationhas been reported to be >400mg/dL. HCG, Urine Qual (LAB)2021-05-26 00:20:00* Test Item Value Reference Range Interpretation Comme nts HCG, Urine, Qual (test code = HCGU) Negative Negative UA, Urinalysis Rflx Cult/Fmkma0073-60-31 00:20:00* Test Item Value Reference Range Interpretation Comme nts Color,Urine (test code = UCOL) Yellow Yellow Clarity,Urine (test code = UCLAR) Clear Clear PH,Urine (test code = UPH.XX) 7.5 5.5-8.5 Specific [employer],Urine (test code = USG) 1.020 1.005-1.030 N [...] code = ULEU) Trace cells/uL Negative Urine Tpbyhiabybv3842-62-12 00:20:00* Test Item Value Reference Range Interpretation Comme nts RBC,Urine (test code = URBC.XX) 0-5 /HPF None Seen WBC,Urine (test code = UWBC.XX) 6-10 /HPF None Seen A Squamous Epithelial Cell,Uri ne (test code = USQEPI.XX) 74-200 /HPF None Seen A Bacteria,Urine (test code = UBACT) Moderate /HPF None Seen A Drug Screen,Raalw1882-92-95 00:20:00* Test Item Value Reference Range Interpretation [...] UPROP) Negative Negative Complete Blood Count Auto Fiik7853-89-68 00:09:00* Test Item Value Reference Range Interpretation [...] code = NRBCP) 0 % Comprehensive Metabolic Qeace0007-88-88 00:09:00* Test Item Value Reference Range Interpretation [...] = ALP) 83 U/L 46-116 N Ethanol Rzcxo6889-11-44 00:09:00* Test Item Value Reference Range Interpretation Comme nts Ethanol (test code = ETOH) < 3 mg/dL The pharmacologi torito response to blood alcohol levels mayvary from individual to individual. The fatal concentrationhas been reported to be >400mg/dL. Coronavirus PCR, COVID19 Cxxuf2607-86-65 00:08:00* Test Item Value Reference Range Interpretation Comme nts Coronavirus PCR, COVID19 Rapid (test code = SARSCOV2) For use under Emergency Use Authorization (EUA) only. Coronavirus PCR, COVID19 Rapid (test code = CVJDHJH48.1) Reference Range: Negative SARS-CoV-2 PCR Result: (test code = SARS-CoV-2 PCR Result:) Negative by RT-PCR COVID-19 Status: AsymptomaticCARBAMAZEPHINE (TEGRETOL)2020-09-26 08:42:00* Test Item Value Reference Range Interpretation Comme nts CARBAMAZPN (test code = 98A) 19.3 ug/mL 4.0-12.0 HH CARBAMAZEPHINE (TEGRETOL)2020-09-26 05:04:00* Test Item Value Reference Range Interpretation Comme nts CARBAMAZPN (test code = 98A) 20.1 ug/mL 4.0-12.0 HH URINALYSIS WITH DRYMM9662-19-91 02:45:00* Test Item Value Reference Range Interpretation [...] code = USPERM) /HPF NONE DRUGS OF UWLMB1068-35-83 02:43:00* Test Item Value Reference Range Interpretation [...] the FDA and the [employer] (CAP) are more stringent than those required for this test. Therefore, the result should be interpreted with caution and close attention to other clinical and epidemiological data PRO TIME AND DCA0928-35-74 00:51:00* Test Item Value Reference Range Interpretation [...] Heparin. Order Code is ANTI-XA COMPREHENSIVE METABOLIC JSK2520-55-33 00:47:00* Test Item Value Reference Range Interpretation [...] 0.4-1.1 GFR (test code = GFR) 133 mL/min/1.73m\\S\\2 See_Comment [Automated message] The system which generated this result transmitted reference range: >=90. The reference range was not used to interpret this result as normal/abnormal. GFR (test code = GFRAA) 154 mL/min/1.73m\\S\\2 See_Comment [Automated message] The system which generated [...] used to interpret this result as normal/abnormal. LITGNGXNIDUTX3601-73-67 00:47:00* Test Item Value Reference Range Interpretation Comme nts ACETAMINPH (test code = 94M) 3.6 ug/mL 10.0-30.0 L CARDIAC LEAGZUE7231-45-34 00:47:00* Test Item Value Reference Range Interpretation [...] used to interpret this result as normal/abnormal. SKSARQNKEIR1549-63-31 00:42:00* Test Item Value Reference Range Interpretation Comme nts SALICYLATE (test code = 94B) <1.7 mg/dL 2.8-20.0 L SERUM ZOKMUKIBQD6966-98-44 00:38:00* Test Item Value Reference Range Interpretation Comme nts PREG SRM (test code = PGS) NEGATIVE NEGATIVE CBC (INCLUDES AUTOMATED DIFFERENTIAL)2020-09-26 00:36:00* Test Item Value Reference Range Interpretation Comme nts WBC (test code = WBC) 7.6 10\\S\\3/uL [...] RBC MORPH (test code = RBCMOR) NORMAL Notes Date/Time Note Provider Source 2023-06-28 15:53:09 s3vXi9F78lqLhapja+XYSBmWzxUxSxxoWfnmPFV 9DWfd0d1vGaRvCTaS6zVbhYq66294-33-07V39: 53:09 Called pt to inform her that I've yet to here from Dr. Flores yet as it is her day off. Advised pt to keep her appointment tomorrow so they can make a plan going forward for IUD insertion as pt would like to get rx's miso prior to procedure. Pt verbalized understanding. 45342-7Mphxlnwuj encounter MuseYU8208-47-39Q88:54:15Telephone encounter NoteTXT1.2.840.119127.1.13.104.2.7.2.72 7879|[id number] for patient zgfn77965-8IvtcYXFNOCVVVRGBsnnsxyth C-CDA narrative [id number] E Burch MA[address] Mrbe[id number] NMASTCOKUHUAQIOLFTM7032-51-52I38:54:151 .2.840.148851.1.72.3.15|1.2.840.483627. 1.13.104.2.7.2.727879_[id number] Marci Valderrama MA [facility] 2023-06-28 09:21:56 xYBafa107MfuP5AVYnfG1/0Rrv7lMLHkndNJiNf b+sMnisHqD3gMwtZc+ciMjumW3824-33-27U66: 21:56 Spoke to pt regarding IUD appt. Pt stated she wants to replace IUD and made an appointment earlier this month. Pt changed her mind about per her last appointment and conversation with Dr. Flores. Pt has been having unprotected intercourse with partner but started her menses on 06/26 and is still currently on it. Pt is requesting miso prior to procedure. Advised pt that Dr. Flores is not in clinics today so I may not be able to get a hold of her. Advised pt Dr. Flores may want her to come in to the clinic today to take a UPT pror to rx being sent for miso to ensure pt is not but can not guarentee I get a response. Informed pt that if I do not hear back I would still advise pt to at least keep appt for tomorrow so she can discuss everything with provider and we can r/s IUD. Pt verbalized understanding. Will call pt back with further instructions before the end of today. 15316-8Jmpwjuzff encounter UsnqDC3455-93-98Z05:26:34Telephone encounter NoteTXT1.2.840.609377.1.13.104.2.7.2.72 7879|[id number] for patient lthi21521-2DzeqXCPJPPIASVMIwghaxfej C-CDA narrative text[id number] REDBQAIGCPMOPOVAAKL6754-70-00U56:26:341 .2.840.522889.1.72.3.15|1.2.840.714872. 1.13.104.2.7.2.727879_[id number] [facility] 2023-06-28 09:12:52 2eF/v+Electrical Software Engineer+l/iB/2uqOwo1yzvNZ8wlVy7/PH38Ej yY5WxDa0kt/Jk7uFHo7Kj5lp58644-84-04D57: 12:52 Left voicemail for pt to return my call. 55482-2Mvzyfrnsj encounter MzoeQB0476-48-18A85:13:11Telephone encounter NoteTXT1.2.840.604071.1.13.104.2.7.2.72 7879|[id number] for patient rnyv36712-2CuhePPSSLMACAYHVvqsiqgzq C-CDA narrative text[id number] KTZDJYXVDKQFRCNUOOC0884-94-21E77:13:111 .2.840.307125.1.72.3.15|1.2.840.272178. 1.13.104.2.7.2.727879_[id number] [facility] 2023-06-28 08:59:28 GsM8e75TMt/4JzcwGE8f+71EaLGSQ7CrfZKHvPT dtm+IckwdVHXPFdB5r1XrtDrh0167-11-32J86: 59:28 Patient states she is getting an IUD tomorrow, she wants to know if there is a prescription she needs to take before the appointment. [id number] encounter [id number]:00:18Telephone encounter [id number] 7879|[id number] for patient uvcy52745-2XceqARUXUCQHRJOMdjayally C-CDA narrative [id number] S Hernandez[id number] JHORHIPPSQVOMOXQRSU4831-50-97P82:00:181 .2.840.113536.1.72.3.15|1.2.840.213089. [id number] Ginny Peng [facility] 2023-03-16 15:45:00 +gQtboBlRMFm/zYTr3t9km3DeqW92htj0mS/JI2 dSCmokblhzuf3WZl1/wsRLEFH5684-53-52M04: 45:00 Images from the original note were not included.Patient has been identified by and name and was provided with cup, antiseptic towelette, and clean catch instructions. 1 urine specimen(s) sent. Unpreserved 1 Urine Culture Aptima tube Other urine [id number] AqprDF9311-43-94H07:48:50Nurse NoteTXT1.2.840.793905.1.13.104.2.7.2.72 7879|[id number] for patient fggb00956-1Zbqob Note[id number] BAQPBHJSDPYMUNBDSHU3049-45-85P45:48:501 .2.840.683651.1.72.3.15|1.2.840.674546. [id number] [facility] 2022-07-15 20:52:00 [id number]+N l/Xm0jhEO6F3hyi6AgYrVzLKSsOpC2o2xsoqu73 25-07-12T20:52:00 [facility] ([facility])EMERGENCY PROVIDER REPORTREPORT#:[id number] REPORT STATUS: SignedDATE:07/15/22 TIME: 2051 PATIENT: MEE POMPA UNIT #: [id number]#: [id number] ROOM: BED:AGE: 22 SEX: F PCP PHYS: Undefined ProviderSERVICE AUTHOR: Jose Guzmán MD * ALL edits or amendments must be made on the electronic/computer document * HPI-Sore Throat GeneralInitial Greet Date/Time 07/15/221919 PresentationChief Complaint Sore throatHx Obtained From Patient, EMS Free Text HPI NotesFree Text HPI NotesCough with sore throat x2 weeksSore throat has gotten worseTo ER for evaluation Review of Systems ROS StatementsAll systems rev neg except as marked.Complete sys rev neg except as marked. Past Medical History - AdultStated Complaint SORE THROATAllergiesCoded Allergies:No Known Allergies (07/15/22) Review of Nursing Notes Triage notes reviewed, Rapid assess notes revPt reports no significant: Past medical history, Past surgical history, Family history, Social historySmoking status for patients 13 years old or older: Current every day smoker Physical Exam Vital SignsVital SignsFirst Documented: Result Date Time Pulse Ox 98 07/15 1925 B/P 122/75 07/15 1925 B/P Mean 90 07/15 1925 O2 Delivery Room air 07/15 1925 Temp 37.0 07/15 1925 Pulse 119 07/15 1925 Resp 14 07/15 1925 Last Documented: Result Date Time Pulse Ox 98 07/15 1925 B/P 122/75 07/15 1925 B/P Mean 90 07/15 1925 O2 Delivery Room air 07/15 1925 Temp 37.0 07/15 1925 Pulse 119 07/15 1925 Resp 14 07/15 1925 Review of Vital Signs Reviewed Basic Physical ExamBasic PE HEAD: Atraumatic/NC, EYES: PERRL, conj clear, RESP: No resp distress, ABD: Soft/non-tender, EXT: No gross abnormality, SKIN: No rashes, warm/dry, NEURO: alert oriented, NEURO: gross movement NL, PSYCH: NL thought content Focused PEGeneral/Const General/Const Awake, Alert, Well appearingEars/Nose/Throat Pharynx/Tonsils/Uvula Pharyngeal erythema, Tonsillar erythema R, Tonsillar erythema L. Negative: Tonsillar exudate R, Tonsillar exudate L, Tonsillar swelling R, Tonsillar swelling L, Peritonsil abscess R, Peritonsil abscess L, Trismus present, Epiglottis enlarged, Epiglottis erythematous, Uvula deviated R, Uvula deviated L, Uvula edematous, Uvula enlarged, Uvula erythematous. MS Neck Neck Atraumatic, Supple, No meningismus, Full range of motion, No adenopathy,No swelling, Non-tender, No midline vertebral tendResp/Chest Respiratory/Chest Atraumatic, Breath sounds NL, Breath sounds = bilat, No respiratory distress, No rales, No rhonchi, No wheezing, No retractionsCardiovascular Cardiovascular Regular rhythm, Heart sounds NL, No gallop, No murmurs, No rubs Heart Rate/Rhythm Tachycardia. Abdomen/GI Abdomen/GI Atraumatic, Soft, Non-tender, McBurney's non-tender, No guarding, No rebound, BS normoactive, No distentionLymphatic Lymphatic No gross adenopathySkin Skin Atraumatic, Color NL, No rash, Warm, Dry, IntactNeurologic Neurologic Oriented X3, Speech NL, No motor deficits, No sensory deficits Interpretation Diagnostics Lab Results InterpretationResultsLaboratory Tests: 07/15 1999 Serology Group A Strep Screen (NEGATIVE) negative Lab Imaging StatementLaboratory radiographic studies reviewed and considered in the medical decision-making. Re-Evaluation MDM Re-Evaluation/ProgressRe-Evaluation/Pro papito Text/Dict NoteMild pharyngeal erythemaNo exudatesNo abscessesNo airway compromisePatient is not ill or toxicNo stiff neckmild tachycardia but no fever, tachypnea, orRapid strep negativeNo symptoms consistent with monoWe will treat prophylactically for strep throatGive antibiotics in light of mild tachycardia and pharyngeal erythemaImaging of the neck or throat is not indicated from the ERRecommend follow-up with primary care doctor in 2 to 3 days Time of Re-Eval 2052 Re-Eval Status Improved Eval Following Treatment Pt. feels better Pain Re-Evaluation Pain improved Exam Post Tx - General Appears non-toxic, Appears well, Vital signs stable Exam Post Tx - Sys Review Lungs clear, Abdomen soft, Abdomen nontender Plan Post Re-Eval Plan discharge Tissue Perfusion ReassessmentPatient tissue perfusion reassessment completed. ED CourseMedication(s) OrderedMedication(s) Ordered:Central Nervous System Agents Sig/Camila Start time Last Medication Dose Route Stop Time Status Admin Acetaminophen 650 MG X1ED STA 07/15 2049 DC 07/15 PO 07/15 Ibuprofen 400 MG X1ED STA 07/15 2049 DC 07/15 PO 07/15 Differential DiagnosisDifferential Diagnosis Influenza, Peritonsillar abscess, Peritonsillar cellulitis, Pharyngitis, acute, Pharyngitis, viral, Strep throat Patient Discharge Departure Vital Signs/ConditionVital SignsFirst Documented: Result Date Time Pulse Ox 98 07/15 1925 B/P 122/75 07/15 1925 B/P Mean 90 07/15 1925 O2 Delivery Room air 07/15 1925 Temp 37.0 07/15 1925 Pulse 119 07/15 1925 Resp 07/15 Last Documented: Result Date Time Pulse Ox 98 07/15 1925 B/P 122/75 07/15 1925 B/P Mean 90 07/15 1925 O2 Delivery Room air 07/15 1925 Temp 37.0 07/15 1925 Pulse 119 07/15 1925 Resp 07/15 All vital signs available at the time of this entry have been reviewed. Condition Stable Clinical ImpressionClinical ImpressionPrimary Impression: Pharyngitis Disposition DecisionDischarge )( Discharged to Home Yes )( Time 2054 )( Date 07/15/22 COVID-19 Discharge PlanCDC Criteria Met for Testing NoTest Performed No Discharge/Care PlanCounseled Regarding Diagnosis, Lab results, Prescriptions, Need for follow-up, When to return to ED(Auto) PrescriptionsCurrent Visit ScriptsAmoxicillin (Amoxil) 500 MG PO Q12H Amoxicillin (Amoxil) 500 MG PO Q12H #14 CAPS Ibuprofen (Advil) 400 MG PO Q4H PRN PRN PAIN/FEVER Ibuprofen (Advil) 400 MG PO Q4H PRN PRN PAIN/FEVER #30 TABS Prescriptions Reviewed Risks, Benefits, Alternative treatmentPatient Instructions ED Pharyngitis, Strep (Presumed)Additional InstructionsFollow-up with your regular doctor in 2 to 3 daysSeek medical attention immediately if your symptoms worsenDeparture Luis M PCP [facility] [facility] [place] [facility] [employer]IABLE Discharge NoteI have spoken with the patient and/or caregivers. I have explained the patient'scondition, diagnoses and treatment plan based on the information available to meat this time. I have answered the patient's and/or caregiver's questions and addressed any concerns. The patient and/or caregivers have as good an understanding of the patient's diagnosis, condition and treatment plan as can beexpected at this point. The vital signs have been stable. The patient's condition is stable and appropriate for discharge from the emergency department. The patient will pursue further outpatient evaluation with the primary care physician or other designated or consulting physician as outlined in the discharge instructions. The patient and/or caregivers are agreeable to this planof care and follow-up instructions have been explained in detail. The patient and/or caregivers have received these instructions in written format and have expressed an understanding of the discharge instructions. The patient and/or caregivers are aware that any significant change in condition or worsening of symptoms should prompt an immediate return to this or the closest emergency department or a call to 911. Quality MeasuresBP F/U for HTN Referred for BP f/u < 4wk, F/u with PCP/other docSmoking Cessation Screened, non user at 2145RPT #:[id number] OF REPORTSt. [facility] [id number]:52:00T.[id number] for patient qcomNFKAUCFIKHMOET8245-12-29Q60:45:39 [facility] 2022-07-04 16:58:00 [id number]/cy/ZSe+y MKIFAMJrtMMOl9NNv1eZlLSG5h0nfWXk5Ewsm72 25-07-01T16:58:00 [facility] PROVIDER REPORTREPORT#:[id number] REPORT STATUS: SignedDATE:07/04/22 TIME:1658 PATIENT: MEE POMPA UNIT #: [id number]#: [id number] ROOM/BED:: 02 AGE: 22 SEX: F PCP PHYS: Nilton Montes MDSERVICE AUTHOR: Eric Moore DO * ALL edits or amendments must be made on the electronic/computer document * HPI-General Illness GeneralConfirmed Patient YesInitial Greet Date/Time 07/04/22 1634 PresentationChief Complaint requesting drug rehab resourcesHx Obtained From PatientSudden in Onset? NoOnset Occurred ChronicSymptom Duration Since onsetProgression since Onset UnchangedCaused by No trauma by historySeverity: Current No pain currentlyAssociated withDenies: Abdominal pain, Chest pain. Exacerbated by NothingRelieved by Nothing Review of Systems ROS StatementsComplete sys rev neg except as marked. Review of SystemsConstitutionalDenies: Chills, Fatigue, Fever, Lethargy, Weakness - generalized. RespiratoryDenies: Shortness of breath. CardiovascularDenies: Palpitations. GIDenies: Diarrhea, Nausea, Vomiting. NeurologicDenies: Confusion, Dizziness. PsychiatricDenies: Agitation, Anxiety, Depression, Hallucinations, auditory, Hallucinations, visual, Homicidal ideation, Suicidal ideation. Past Medical History - AdultStated Complaint WANTS TO DETOXAllergiesCoded Allergies:No Known Allergies (07/04/22) Smoking status for patients 13 years old or older: Current every day smoker Physical Exam Vital SignsVital SignsFirst Documented: Result Date Time Pulse Ox 100 07/04 1643 B/P 118/82 07/04 1643 B/P Mean 94 07/04 164 O2 Delivery Room air 07/04 1642 Temp 98.1 07/04 1642 Pulse 99 07/04 1642 Resp 18 07/04 1642 Last Documented: Result Date Time Pulse Ox 100 07/04 164 B/P 118/82 07/04 164 B/P Mean 94 07/04 1642 O2 Delivery Room air 07/04 1642 Temp 98.1 07/04 1642 Pulse 99 07/04 1642 Resp 18 07/04 164 Review of Vital Signs Reviewed Physical ExamGeneral/Const General/Const Awake, Alert, Well appearingMS Head Head NormocephalicEyes Eyes PERRLEars/Nose/Throat Ears/Nose/Throat Airway patent, Mucous membranes moist, Pharynx NLMS Neck Neck Supple, No meningismus, Full range of motion, No swelling, Non-tender, No massesResp/Chest Respiratory/Chest Breath sounds NL, Breath sounds = bilat, No respiratory distress, No rales, No rhonchi, No wheezingCardiovascular Cardiovascular Heart rate NL, Regular rhythm, Heart sounds NL, Cap refill notdelayed, Peripheral circulation NLMS Upper Extrem Upper Extremity/MS Inspection NL, No swelling, Non-tender, No erythema, No deformity, Neurologic intact, Vascular intact, No clubbing/cyanosisMS Wrist/Hand Wrist/Hand Inspection NL, No swelling, No erythema, Non-tender, No deformity,Neurologic intact, Vascular intact, No clubbing/cyanosisMS Lower Extrem Lower Ext/Pelvis/MS Inspection NL, No swelling, Non-tender, No erythema, No deformity, Neurologic intact, Vascular intact, No edemaSkin Skin Color NL, Warm, Dry, Turgor NLNeurologic Neurologic Oriented X3, Speech NL, No motor deficits, No sensory deficitsPsychiatric Psychiatric Affect NL, Mood NL, Thought content NL Re-Evaluation MDM Differential DiagnosisDifferential Diagnosis substance abuse, anxiety, depression Patient Discharge Departure Vital Signs/ConditionVital SignsFirst Documented: Result Date Time Pulse Ox 100 07/04 1642 B/P 118/82 07/04 1642 B/P Mean 94 07/04 1642 O2 Delivery Room air 07/04 1642 Temp 98.1 07/04 1642 Pulse 99 07/04 1642 Resp 18 07/04 1642 Last Documented: Result Date Time Pulse Ox 100 07/04 1642 B/P 118/82 07/04 1643 B/P Mean 94 07/04 164 O2 Delivery Room air 07/04 1642 Temp 98.1 07/04 1642 Pulse 99 07/04 164 Resp 18 07/04 164 All vital signs available at the time of this entry have been reviewed. Clinical ImpressionClinical ImpressionPrimary Impression: Drug abuse Disposition DecisionDischarge )( Discharged to Home Yes )( Time 1658 )( Date 07/04/22 Discharge/Care PlanCounseled Regarding Diagnosis, Need for follow-up, When to return to EDPatient Instructions ED Drug AbuseAdditional InstructionsFollow-up with drug rehabilitation facilities listed on packet provided at [address] [facility] #: [id number] OF REPORTEDEmergency department [id number]:58:00L.[id number] for patient qqndUJSKCTOMXGXQKV8266-48-97Z71:06:49 HCAPM"
--- NOTE | 2023-08-27 09:11 | ER ---
Nurse's Notes [facility] Name: Vadna Pompa Age: 23 yrs Sex: Female : 2000 Arrival Date: 08/27/2023 Time: 07:56 Bed 15 Private MD: Diagnosis: Amenorrhea, unspecified Presentation: 08/27 08:13 Chief complaint: Patient states: "I think I may be , I am 5 days late." LMP hb 07/22/23. Coronavirus screen: At this time, the client does not indicate any symptoms associated with coronavirus-19. Ebola Screen: No symptoms or risks identified at this time. Initial Sepsis Screen: Does the patient meet any 2 criteria? No. Patient's initial sepsis screen is negative. Does the patient have a suspected source of infection? No. Patient's initial sepsis screen is negative. Risk Assessment: Do you want to hurt yourself or someone else? Patient reports no desire to harm self or others. Onset of symptoms was August 27, 2023. 08:13 Method Of Arrival: Ambulatory 08:13 Acuity: FREDY 4 hb Triage Assessment: 08:14 General: Appears in no apparent distress. Behavior is calm, cooperative. Pain: Denies hb pain. EENT: No signs and/or symptoms were reported regarding the EENT system. Neuro: Level of Consciousness is awake, alert, obeys commands, Oriented to person, place, time, situation. Cardiovascular: Patient's skin is warm and dry. Respiratory: Respiratory effort is even, unlabored, Respiratory pattern is regular, symmetrical. GI: No signs and/or symptoms were reported involving the gastrointestinal system. : No signs and/or symptoms were reported regarding the genitourinary system. Derm: Skin is pink, warm \\T\\ dry. Musculoskeletal: No signs and/or symptoms reported regarding the musculoskeletal system. 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 - Social history:: Smoking status: Patient denies any tobacco usage or history of. - Family history:: not pertinent. Screenin:15 [facility] ED Fall Risk Assessment (Adult) Score/Fall Risk Level 0 - 2 = Low Risk hb Oriented to surroundings, Maintained a safe environment, Educated pt \\T\\ family on fall prevention, incl call for assistance when getting out of bed. Abuse screen: Denies threats or abuse. Denies injuries from another. Nutritional screening: No deficits noted. Tuberculosis screening: No symptoms or risk factors identified. Assessment: 08:15 General: Appears in no apparent distress. Behavior is calm, cooperative. Pain: Denies hb pain. Neuro: Level of Consciousness is awake, alert, obeys commands, Oriented to person, place, time, situation. Cardiovascular: Patient's skin is warm and dry. Respiratory: Respiratory effort is even, unlabored, Respiratory pattern is regular, symmetrical. GI: No signs and/or symptoms were reported involving the gastrointestinal system. : No signs and/or symptoms were reported regarding the genitourinary system. EENT: No signs and/or symptoms were reported regarding the EENT system. Derm: Skin is pink, warm \\T\\ dry. Musculoskeletal: No signs and/or symptoms reported regarding the musculoskeletal system. 09:27 Reassessment: Patient appears in no apparent distress at this time. Patient and/or hb family updated on plan of care and expected duration. Pain level reassessed. Patient is alert, oriented x 3, equal unlabored respirations, skin warm/dry/pink. Vital Signs: 08:13 BP 128 / 88; Pulse 86; Resp 16; Temp 98.3; Pulse Ox 100% on R/A; Pain 0/10; hb 08:13 Pain Scale: Adult hb ED Course: 07:58 Patient arrived in ED. mr 07:59 Dick Fields MD is Attending Physician. uzma 08:14 Triage completed. hb 08:14 Arm band placed on. hb 08:15 Patient has correct armband on for positive identification. Provided Education on: hb tests, result times. 08:15 No provider procedures requiring assistance completed. Patient did not have IV access hb during this emergency room visit. 08:26 Test, Serum Sent. bc6 Administered Medications: No medications were administered Medication: 08:15 VIS not applicable for this client. hb Outcome: 09:10 Discharge ordered by . uzma 09:27 Discharged to home ambulatory, hb 09:27 Condition: stable 09:27 Discharge instructions given to patient, Instructed on discharge instructions, follow up and referral plans. medication usage, Demonstrated understanding of instructions, follow-up care, medications, 09:28 Patient left the ED. hb Signatures: Dick Fields MD MD cha Rivera Purnima, [facility] Reg Ashlyn Lux, RN RN Amelia Ortiz bc6
--- NOTE | 2023-08-27 09:11 | EDPHYS ---
Physician Documentation [facility] Name: Vanda Pompa Age: 23 yrs Sex: Female : 2000 Arrival Date: 08/27/2023 Time: 07:56 Bed 15 Private MD: ED Physician Dick Fields HPI: 08/27 08:53 This 23 yrs old Female presents to ER via Ambulatory with complaints of uzma test. 08:53 The patient presents with a desire for a test. Onset: The symptoms/episode uzma began/occurred 2 day(s) ago. Modifying factors: The symptoms are alleviated by nothing, the symptoms are aggravated by nothing. Associated signs and symptoms: The patient has no apparent associated signs or symptoms. Severity of symptoms: At their worst the symptoms were mild, in the emergency department the symptoms are unchanged. The patient is sexually active, reportedly has a single partner. The patient has not experienced similar symptoms in the past. 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 - Social history:: Smoking status: Patient denies any tobacco usage or history of. - Family history:: not pertinent. ROS: 08:53 Constitutional: Negative for fever, chills, and weight loss, Eyes: Negative for injury, uzma pain, redness, and discharge, ENT: Negative for injury, pain, and discharge, Neck: Negative for injury, pain, and swelling, Cardiovascular: Negative for chest pain, palpitations, and edema, Respiratory: Negative for shortness of breath, cough, wheezing, and pleuritic chest pain, Abdomen/GI: Negative for abdominal pain, nausea, vomiting, diarrhea, and constipation, Back: Negative for injury and pain, : Negative for injury, bleeding, discharge, and swelling, MS/Extremity: Negative for injury and deformity, Skin: Negative for injury, rash, and discoloration, Neuro: Negative for headache, weakness, numbness, tingling, and seizure, Psych: Negative for depression, anxiety, suicide ideation, homicidal ideation, and hallucinations, Allergy/Immunology: Negative for hives, rash, and allergies, Endocrine: Negative for neck swelling, polydipsia, polyuria, polyphagia, and marked weight changes, Hematologic/Lymphatic: Negative for swollen nodes, abnormal bleeding, and unusual bruising, Exam: 08:53 Constitutional: This is a well developed, well nourished patient who is awake, alert, uzma and in no acute distress. Head/Face: Normocephalic, atraumatic. Eyes: Pupils equal round and reactive to light, extra-ocular motions intact. Lids and lashes normal. Conjunctiva and sclera are non-icteric and not injected. Cornea within normal limits. Periorbital areas with no swelling, redness, or edema. ENT: Nares patent. No nasal discharge, no septal abnormalities noted. Tympanic membranes are normal and external auditory canals are clear. Oropharynx with no redness, swelling, or masses, exudates, or evidence of obstruction, uvula midline. Mucous membranes moist. Neck: Trachea midline, no thyromegaly or masses palpated, and no cervical lymphadenopathy. Supple, full range of motion without nuchal rigidity, or vertebral point tenderness. No Meningismus. Chest/axilla: Normal chest wall appearance and motion. Nontender with no deformity. No lesions are appreciated. Cardiovascular: Regular rate and rhythm with a normal S1 and S2. No gallops, murmurs, or rubs. Normal PMI, no JVD. No pulse deficits. Respiratory: Lungs have equal breath sounds bilaterally, clear to auscultation and percussion. No rales, rhonchi or wheezes noted. No increased work of breathing, no retractions or nasal flaring. Abdomen/GI: Soft, non-tender, with normal bowel sounds. No distension or tympany. No guarding or rebound. No evidence of tenderness throughout. Back: No spinal tenderness. No costovertebral tenderness. Full range of motion. Skin: Warm, dry with normal turgor. Normal color with no rashes, no lesions, and no evidence of cellulitis. MS/ Extremity: Pulses equal, no cyanosis. Neurovascular intact. Full, normal range of motion. Neuro: Awake and alert, GCS 15, oriented to person, place, time, and situation. Cranial nerves II-XII grossly intact. Motor strength 5/5 in all extremities. Sensory grossly intact. Cerebellar exam normal. Normal gait. Psych: Awake, alert, with orientation to person, place and time. Behavior, mood, and affect are within normal limits. Vital Signs: 08:13 BP 128 / 88; Pulse 86; Resp 16; Temp 98.3; Pulse Ox 100% on R/A; Pain 0/10; hb 08:13 Pain Scale: Adult hb MDM: 07:59 Patient medically screened. [facility] 08/27 08:17 Order name: Test, Serum; Complete Time: 09:10 bc6 Administered Medications: No medications were administered Disposition Summary: 08/27/23 09:10 Discharge Ordered Notes: Location: Home [facility] Problem: new uzma Symptoms: have improved uzma Condition: Stable uzma Diagnosis - Amenorrhea, unspecified uzma Followup: uzma - With: Private Physician - When: 2 - 3 days - Reason: Recheck today's complaints, Continuance of care, Re-evaluation by your physician Discharge Instructions: - Discharge Summary Sheet uzma - Pelvic Pain, Female uzma - Primary Amenorrhea [facility] Forms: - Medication Reconciliation Form [facility] - Thank You Letter uzma - Antibiotic Education uzma - Prescription Opioid Use uzma - Patient Portal Instructions [facility] - Leadership Thank You Letter [facility] Signatures: Dispatcher [employer] Dick Quijano MD MD cha Baxter, Heather, RN RN hb
[2023-08-27 09:44] VITALS: BP 128/88; TEMP 98.3; O2SAT 100
== END ==
LOC: ER 07:56
DX: N91.2 Amenorrhea, unspecified (principal)
CPT/HCPCS: 36415; 84703; 99283

== ENCOUNTER → 2023-09-25 | Emergency (ER) | payer OTHER ==
[2023-09-25 11:43] LABS: Absolute Eosinophils 0.1 K/uL (0-0.5); Absolute Lymphocytes (CBC) 1.7 K/uL (0.7-4.9); Absolute Monocytes 0.3 K/uL (0.1-1.3); Absolute Neutrophil 3.3 K/uL (1.8-8.0); Basophils % 0.2 % (0-1.3); Hemoglobin 14.2 g/dL (12.0-15.0); Lymphocytes % 31.9 % (15.3-44.8); MCH 29.6 pg (27.0-35.0); MCHC 33.8 g/dL (32.0-36.0); MCV 87.5 fL (80-100); MPV 8.6 fL (7.6-11.3); Monocytes % 5.6 % (3.3-12.3); Neutrophils % 61.3 % (41.7-73.7); Nucleated Red Blood Cells % 0.1 % (0-0); Platelets 339 thou/uL (152-406); Red Cell Distribution Width 13.6 % (12.1-15.2)
[2023-09-25 11:46] LABS: PT Prothrombin Time 13.9 SECONDS (9.5-12.5); PTT, Activated Partial Thromb 30.6 SECONDS (24.3-36.9); Protime INR 1.27
--- OUTSIDE RECORDS SUMMARY | 2023-09-25 11:46 | XMS REPORT | Continuity of Care Document ---
Author Name Unknown Address [address] [facility]. [address] [place] [address] [facility] thconnect Address [address] [facility] [address] [place] [address] Care Team Providers Care Director Of Physical Security Name Role Phone PCP, PATIENT DOES NOT HAVE A Primary Care Physic venancio Unavailable SUSAN VALVERDE Attending Clinician Unavailable Alejandra Flores MD Attending Clinician [phone] ALEJANDRA FLORES Attending Clinician Unades shea Doctor Unassigned, [place] Attending Clinician U Abby Caraballo Attending Clinician [phone] HANDY DOMINGUEZ Attending Clinician Unavailable Unknown, Attending Attending Clinician Unavailab abby STEWARD-CHandy Attending Clinician + [phone] ABBY LUKE Attending Clinician Unavailable DEONNA MELENDREZ Attending Clinician Unavailable Deonna Ferrell Attending Clinician [phone] Godwin Hand Attending Clinician [phone] Gino Iqbal Attending Clinician Unavailable GODWIN HANDY Attending Clinician Unavailable Susan Valverde MD Attending Clinician [phone] Pcp-Lab Attending Clinician Unavailable LUCINDA WILLS Attending Clinician Unavailable Pcp, Patient Does Not Have A Attending Clinician Bouchra Mcintosh MD Attending Clinician [phone] BOUCHRA MCINTOSH Attending Clinician Unavailable JAMES JACOBS Attending Clinician Unavailable TEJAL FORD Attending Clinician Unavailable ELENITA SHARMA Attending Clinician UnavailJose Clayton Attending Clinician Unavailable Eric Moore Attending Clinician Unavailable IRASEMA ROBLEDO Attending Clinician Unavailable Irasema Michel Attending Clinician [phone] Shivani Castaneda Attending Clinician + [phone] Nurse, [facility] Attending Clinician Un available SHIVANI GUERRA Attending Clinician Unavailab Negrita So LVN Attending Clinician [phone] Keagan Luo MD Attending Clinician [phone] Clinic-Stv, Care Transition Attending Clinician Unavailable NOLVIA HUSAIN Attending Clinician Unavailable Nolvia Husain MD Attending Clinician [phone] Vignesh Parsons MD Attending Clinician + Vaccine, Janice Attending Clinician VIGNESH Lafleur Attending Clinician Unavailable Kityt KESSLER Attending Clinician Unavailable Kitty Crews Attending Clinician + [phone] ASH RAMIREZ Attending Clinician Unavailable James ROBERTS, Ash Attending Clinician [phone] Todd ROBERTS, Maggie Cosby Attending Clinician [phone] Bipin ROBERTS, Akiko Attending Clinician [phone] AKIKO GRAY Attending Clinician Unavailable Vania Rivera Attending Clinician [phone] VANIA EM Attending Clinician Unavailable Lucinda Wills MD Attending Clinician [phone] SHIVANI VAUGHN Attending Clinician UnavailSHIVANI Sanchez Attending Clinician Unavailfrancesca Patel MD, Pat Attending Clinician [phone] HONORIO GALARZA Attending Clinician Unavaila sharon Pob, [facility] Main Attending Clinician Unavailfrancesca Payton MD, Ryan Attending Clinician [phone] RYAN PAYTON Attending Clinician Unavailab Shea, Jerry Attending Clinician + [phone] Nurse, Pcp Immunization Attending Clinician Unav ailGideon Golden DO Attending Clinician [phone] GIDEON MONTEZ Attending Clinician Unavail able Bethel Isaacs MD Attending Clinician [phone] BETHEL ISAACS Attending Clinician Unavailabl e Health, Tg Hormone Attending Clinician Unavailab James Serna MD Attending Clinician [phone] Josephine HERRERABritt Attending Clinician Burke Espinoza MD Attending Clinician + BURKE BECKETT Attending Clinician Unavailable Vinny ROBERTS, Paolo Zelaya Attending Clinician [phone] Tim Holguin MD Attending Clinician + [phone] TIM HOLGUIN Attending Clinician Yanely shea Immunization, [facility] Clinician Unavailable CHELSY ROMO Attending Clinician UnavailGio Hightower MD Attending Clinician [phone] GIO MARTINEZ Attending Clinician Unavailable DR ALAINA PARRY Attending Clinician Unavailable Nilton Montes MD Attending Clinician NILTON MONTES Attending Clinician Unavailab NILTON Gee Attending Clinician Unavailab DENA Gutierrez Attending Clinician Unavail TRUNG Bethea Attending Clinician Unav Ruchi Vincent Attending Clinician [phone] UNKNOWN, ATTENDING Attending Clinician Unavailab Han Booth Faculty Attending Clinician Unav NILTON Fitch Admitting Clinician UnavailIRASEMA Marks Admitting Clinician Unavailable Person Keagan ROBERTS Admitting Clinician [phone] PERSONKEAGAN Admitting Clinician Unavailable DR ALAINA PARRY Admitting Clinician Unavailable Payers Payer Name Policy Type Policy Number Effective Date Expirati on Date Source MEDICAID Traditional P [id number] [facility] MEDICAID STAR [id number] 2021 00:00:00 [facility] MEDICAID [id number] 2016 00:00:00 Problems Condition Name Condition Details Condition Category Status Onset Date Resolution Date Last Treatment Date Treating Clinician Comments Source Drug abuse Drug abuse Disease Active 2022-07 0-26 00:00: 00 [facility] Trauma Trauma Disease Active 2021-07 0-03 00:00: 00 [facility] Menorrhagi a with regular cycle Menorrhagi a with regular cycle Disease Active 4- 00:00: 00 [facility] Recurrent major depressive disorder Recurrent major depressive disorder Disease Active 7 00:00: 00 [facility] Bipolar disorder, in partial remission, most recent episode mixed Bipolar disorder, in partial remission, most recent episode mixed Disease Active 5- 00:00: 00 Overview: Formattin g of this note might be different from the original. Diagnosis per recent hospitali stefania [facility] Abnormal uterine bleeding (AUB) Abnormal uterine bleeding (AUB) Disease Active 2019-07 00:00: 00 [facility] SANDRA (generaliz ed anxiety disorder) SANDRA (generaliz ed anxiety disorder) Disease Active 07-13 00:00: 00 [facility] Attention deficit hyperactiv ity disorder (ADHD) Attention deficit hyperactiv ity disorder (ADHD) Disease Active 2008-07 00:00: 00 Overview: Formattin g of this note might be different from the original. ICD10 Diagnosis Term Tool Coordinator Utility [facility] Allergies, Adverse Reactions, Alerts Allergy Name Allergy Type Status Severity Reaction(s) Onset Date Inactive Date Treating Clinician Comments Source No Known Allergie s DA Active U 07-15 00:00: 00 [facility] [place] No Known Allergie s DA Active U 07-04 00:00: 00 [facility] No Known Drug Allergie s DA Active U 07-09 00:00: 00 [facility] No Known Drug Allergie s DA Active U 2020-07 00:00: 00 [facility] Unable to Assess DA Active U 2020-07 00:00: 00 [facility] No Known Drug Allergie s DA Active [facility] NO KNOWN ALLERGIE S Drug Class Active [facility] Family History Family Member Diagnosis Comments Start Date Stop Date Sourc e Natural [facility] Natural father Alcohol abuse [facility] Natural father Substance abuse [facility] Natural mother Psychiatry [facility] Social History Social Habit Start Date Stop Date Quantity Comments Source Gender identity [facility] Sexual orientation [facility] History SDOH Alcohol Comment [place] [facility] Alcohol intake 2023-09-08 00:00:00 2023-09-08 00:00:00 Lifetime non-drinker (finding) [facility] History of Social function 2023-09-07 00:00:00 2023-09-07 00:00:00 [facility] Exposure to SARS-CoV-2 (event) 2022-11-15 00:00:00 2022-11-25 08:41:00 Not sure [facility] Tobacco use and exposure 2022-01-17 00:00:00 2022-01-17 00:00:00 Smokeless tobacco non-user [facility] History SDOH Alcohol Frequency 2020-04-20 00:00:00 2020-04-20 00:00:00 1 [facility] History SDOH Alcohol Std Drinks 2020-04-20 00:00:00 2020-04-20 00:00:00 99 [facility] History SDOH Alcohol Binge 2020-04-20 00:00:00 2020-04-20 00:00:00 1 [facility] Sex Assigned At 2002 00:00:00 2000 00:00:00 [facility] Smoking Status Start Date Stop Date Source Never smoked tobacco [facility] Medications Ordered Medication Name Filled Medication Name Start Date Stop Date Current Medication? Ordering Clinician Indication Dosage Frequency Signature (SIG) Comments Components Source atomoxetine (STRATTERA) 25 mg capsule 2023-0 -07 15:10: 49 09-06 00:00 :00 No 25mg Take 1 capsule by mouth in the morning. [facility] atomoxetine (STRATTERA) 25 mg capsule 2023-0 3-07 15:10: 49 09-06 00:00 :00 No 25mg Take 1 capsule by mouth in the morning. [facility] atomoxetine (STRATTERA) 25 mg capsule 2023-0 3-07 15:10: 49 09-06 00:00 :00 No 25mg Take 1 capsule by mouth in the morning. [facility] atomoxetine 40 mg capsule 4-0 3-07 00:00: 00 12-06 04:59 :00 Yes [id number] 40mg Take 1 capsule by mouth every morning for 90 days. [facility] atomoxetine 40 mg capsule 4-0 3-07 00:00: 00 12-06 04:59 :00 Yes [id number] 40mg Take 1 capsule by mouth every morning for 90 days. [facility] atomoxetine 40 mg capsule 4-0 3-07 00:00: 00 12-06 04:59 :00 Yes [id number] 40mg Take 1 capsule by mouth every morning for 90 days. [facility] etonogestre L (NEXPLANON) implant 68 mg 08-31 17:45: 00 08-31 16:57 :00 No [id number] [facility] (NEXPLANON) implant 68 mg 08-31 17:45: 00 08-31 16:57 :00 No [id number] 68mg 68 mg, Subdermal, ONCE NOW, 1 dose, On Mon09/01/23 at 1145, Routine
Use approved by: MENTAL HEALTH CLINICIAN [facility] etonogestre L (NEXPLANON) implant 68 mg 08-31 17:45: 00 08-31 16:57 :00 No [id number] 68mg [facility] etonogestre L (NEXPLANON) implant 68 mg 08-31 17:45: 00 08-31 16:57 :00 No [id number] 68mg 68 mg, Subdermal, ONCE NOW, 1 dose, On Mon09/01/23 at 1145, Routine
Use approved by: MENTAL HEALTH CLINICIAN [facility] etonogestre L (NEXPLANON) implant 68 mg 08-31 17:45: 00 08-31 16:57 :00 No [id number] 68mg [facility] etonogestre L (NEXPLANON) implant 68 mg 08-31 17:45: 00 08-31 16:57 :00 No [id number] 68mg [facility] etonogestre L (NEXPLANON) implant 68 mg 08-31 17:45: 00 08-31 16:57 :00 No [id number] 68mg [facility] atomoxetine (STRATTERA) 25 mg capsule 08-31 10:34: 50 Yes 25mg Take 1 capsule by mouth in the morning. [facility] atomoxetine (STRATTERA) 25 mg capsule 08-31 10:34: 50 Yes 25mg Take 1 capsule by mouth in the morning. [facility] ARIPiprazol e 15 mg tablet 4-0 2-10 00:00: 00 09-11 04:59 :00 Yes [id number] 15mg Take 1 tablet by mouth in the morning for 30 days. [facility] ARIPiprazol e 15 mg tablet 4-0 2-10 00:00: 00 09-11 04:59 :00 Yes [id number] 15mg Take 1 tablet by mouth in the morning for 30 days. [facility] ARIPiprazol e 15 mg tablet 4-0 2-10 00:00: 00 09-11 04:59 :00 Yes [id number] 15mg Take 1 tablet by mouth in the morning for 30 days. [facility] ARIPiprazol e 15 mg tablet 2023-0 2-10 00:00: 00 09-11 04:59 :00 Yes [id number] 15mg Take 1 tablet by mouth in the morning for 30 days. [facility] ARIPiprazol e 15 mg tablet 2023-0 2-10 00:00: 00 09-11 04:59 :00 Yes [id number] 15mg Take 1 tablet by mouth in the morning for 30 days. [facility] ARIPiprazol e 15 mg tablet 4-0 2-10 00:00: 00 09-11 04:59 :00 Yes [id number] 15mg Take 1 tablet by mouth in the morning for 30 days. [facility] ARIPiprazol e 15 mg tablet 4-0 2-10 00:00: 00 09-11 04:59 :00 Yes [id number] 15mg Take 1 tablet by mouth in the morning for 30 days. [facility] ARIPiprazol e 15 mg tablet 4-0 2-10 00:00: 00 09-11 04:59 :00 No [id number] 15mg Take 1 tablet by mouth in the morning for 30 days. [facility] fluticasone propionate 50 mcg/actuati on nasal spray 2023-0 2-09 00:00: 00 Yes [id number] SPRAY 2 SPRAYS INTO EACH NOSTRIL IN THE MORNING [facility] CETIRIZINE 10 mg tablet 2023-0 08-11 00:00: 00 Yes [id number] 10mg TAKE 1 TABLET BY MOUTH EVERY DAY IN THE MORNING [facility] fluticasone propionate 50 mcg/actuati on nasal spray 2023-0 08-11 00:00: 00 Yes [id number] SPRAY 2 SPRAYS INTO EACH NOSTRIL IN THE MORNING [facility] CETIRIZINE 10 mg tablet 2023-0 08-11 00:00: 00 Yes [id number] 10mg TAKE 1 TABLET BY MOUTH EVERY DAY IN THE MORNING [facility] fluticasone propionate 50 mcg/actuati on nasal spray 2023-0 08-11 00:00: 00 Yes [id number] SPRAY 2 SPRAYS INTO EACH NOSTRIL IN THE MORNING [facility] CETIRIZINE 10 mg tablet 2023-0 08-11 00:00: 00 Yes [id number] 10mg TAKE 1 TABLET BY MOUTH EVERY DAY IN THE MORNING [facility] fluticasone propionate 50 mcg/actuati on nasal spray 2023-0 08-11 00:00: 00 Yes [id number] SPRAY 2 SPRAYS INTO EACH NOSTRIL IN THE MORNING [facility] CETIRIZINE 10 mg tablet 2023-0 08-11 00:00: 00 Yes [id number] 10mg TAKE 1 TABLET BY MOUTH EVERY DAY IN THE MORNING [facility] fluticasone propionate 50 mcg/actuati on nasal spray 2023-0 08-11 00:00: 00 Yes [id number] SPRAY 2 SPRAYS INTO EACH NOSTRIL IN THE MORNING [facility] CETIRIZINE 10 mg tablet 2023-0 08-11 00:00: 00 Yes [id number] 10mg TAKE 1 TABLET BY MOUTH EVERY DAY IN THE MORNING [facility] fluticasone propionate 50 mcg/actuati on nasal spray 2023-0 08-11 00:00: 00 Yes [id number] SPRAY 2 SPRAYS INTO EACH NOSTRIL IN THE MORNING [facility] CETIRIZINE 10 mg tablet 2024-0 2-09 00:00: 00 Yes [id number] 10mg TAKE 1 TABLET BY MOUTH EVERY DAY IN THE MORNING [facility] fluticasone propionate 50 mcg/actuati on nasal spray 2023-0 2-09 00:00: 00 Yes [id number] SPRAY 2 SPRAYS INTO EACH NOSTRIL IN THE MORNING [facility] CETIRIZINE 10 mg tablet 2023-0 2- 00:00: 00 Yes [id number] 10mg TAKE 1 TABLET BY MOUTH EVERY DAY IN THE MORNING [facility] fluticasone propionate 50 mcg/actuati on nasal spray 2023-0 2- 00:00: 00 Yes [id number] SPRAY 2 SPRAYS INTO EACH NOSTRIL IN THE MORNING [facility] CETIRIZINE 10 mg tablet 2023-0 2- 00:00: 00 Yes [id number] 10mg TAKE 1 TABLET BY MOUTH EVERY DAY IN THE MORNING [facility] fluticasone propionate 50 mcg/actuati on nasal spray 2023-0 2- 00:00: 00 Yes [id number] SPRAY 2 SPRAYS INTO EACH NOSTRIL IN THE MORNING [facility] CETIRIZINE 10 mg tablet 2023-0 2- 00:00: 00 Yes [id number] 10mg TAKE 1 TABLET BY MOUTH EVERY DAY IN THE MORNING [facility] azelastine 137 mcg (0.1 %) nasal spray 2023-0 1-17 00:00: 00 Yes [id number] 1{spray } Use 1 [place] in each nostril in the morning and 1 [place] in the evening. Use in each nostril as directed [facility] azelastine 137 mcg (0.1 %) nasal spray 2023-0 1-17 00:00: 00 Yes [id number] 1{spray } Use 1 [place] in each nostril in the morning and 1 [place] in the evening. Use in each nostril as directed [facility] azelastine 137 mcg (0.1 %) nasal spray 2023-0 1-17 00:00: 00 Yes [id number] 1{spray } Use 1 [place] in each nostril in the morning and 1 [place] in the evening. Use in each nostril as directed [facility] azelastine 137 mcg (0.1 %) nasal spray 0 07-19 00:00: 00 Yes [id number] 1{spray } Use 1 [place] in each nostril in the morning and 1 [place] in the evening. Use in each nostril as directed [facility] azelastine 137 mcg (0.1 %) nasal spray 0 07-19 00:00: 00 Yes [id number] 1{spray } Use 1 [place] in each nostril in the morning and 1 [place] in the evening. Use in each nostril as directed [facility] azelastine 137 mcg (0.1 %) nasal spray 07-19 00:00: 00 Yes [id number] 1{spray } Use 1 [place] in each nostril in the morning and 1 [place] in the evening. Use in each nostril as directed [facility] azelastine 137 mcg (0.1 %) nasal spray 07-19 00:00: 00 Yes [id number] 1{spray } Use 1 [place] in each nostril in the morning and 1 [place] in the evening. Use in each nostril as directed [facility] azelastine 137 mcg (0.1 %) nasal spray 07-19 00:00: 00 Yes [id number] 1{spray } Use 1 [place] in each nostril in the morning and 1 [place] in the evening. Use in each nostril as directed [facility] azelastine 137 mcg (0.1 %) nasal spray 0 07-19 00:00: 00 Yes [id number] 1{spray } Use 1 [place] in each nostril in the morning and 1 [place] in the evening. Use in each nostril as directed [facility] azelastine 137 mcg (0.1 %) nasal spray 0 07-19 00:00: 00 Yes [id number] 1{spray } Use 1 [place] in each nostril in the morning and 1 [place] in the evening. Use in each nostril as directed [facility] azelastine 137 mcg (0.1 %) nasal spray 07-19 00:00: 00 Yes [id number] 1{spray } Use 1 [place] in each nostril in the morning and 1 [place] in the evening. Use in each nostril as directed [facility] atomoxetine (STRATTERA) 25 mg capsule 07-13 15:53: 46 Yes 25mg Take 1 capsule by mouth in the morning. [facility] atomoxetine (STRATTERA) 25 mg capsule 07-13 15:53: 46 Yes 25mg Take 1 capsule by mouth in the morning. [facility] atomoxetine (STRATTERA) 25 mg capsule 07-13 15:53: 46 Yes 25mg Take 1 capsule by mouth in the morning. [facility] atomoxetine (STRATTERA) 25 mg capsule 07-13 15:53: 46 Yes 25mg Take 1 capsule by mouth in the morning. [facility] atomoxetine (STRATTERA) 25 mg capsule 07-13 15:53: 46 Yes 25mg Take 1 capsule by mouth in the morning. [facility] atomoxetine (STRATTERA) 25 mg capsule 07-13 15:53: 46 Yes 25mg Take 1 capsule by mouth in the morning. [facility] atomoxetine (STRATTERA) 25 mg capsule 07-13 15:53: 46 Yes 25mg Take 1 capsule by mouth in the morning. [facility] atomoxetine (STRATTERA) 25 mg capsule 07-13 15:53: 46 Yes 25mg Take 1 capsule by mouth in the morning. [facility] cetirizine (ZYRTEC) 10 mg tablet 07-13 00:00: 00 Yes [id number] 10mg Take 1 tablet by mouth in the morning. [facility] fluticasone propionate 50 mcg/actuati on nasal spray 07-13 00:00: 00 Yes [id number] 2{spray } Use 2 Sprays in each nostril in the morning. [facility] cetirizine (ZYRTEC) 10 mg tablet 07-13 00:00: 00 Yes [id number] 10mg Take 1 tablet by mouth in the morning. [facility] fluticasone propionate 50 mcg/actuati on nasal spray 07-13 00:00: 00 Yes [id number] 2{spray } Use 2 Sprays in each nostril in the morning. [facility] cetirizine (ZYRTEC) 10 mg tablet 07-13 00:00: 00 Yes [id number] 10mg Take 1 tablet by mouth in the morning. [facility] fluticasone propionate 50 mcg/actuati on nasal spray 07-13 00:00: 00 Yes [id number] 2{spray } Use 2 Sprays in each nostril in the morning. [facility] cetirizine (ZYRTEC) 10 mg tablet 07-13 00:00: 00 Yes [id number] 10mg Take 1 tablet by mouth in the morning. [facility] fluticasone propionate 50 mcg/actuati on nasal spray 07-13 00:00: 00 Yes [id number] 2{spray } Use 2 Sprays in each nostril in the morning. [facility] cetirizine (ZYRTEC) 10 mg tablet 07-13 00:00: 00 08-11 00:00 :00 No [id number] 10mg Take 1 tablet by mouth in the morning. [facility] fluticasone propionate 50 mcg/actuati on nasal spray 07-13 00:00: 00 08-11 00:00 :00 No [id number] 2{spray } Use 2 Sprays in each nostril in the morning. [facility] cetirizine (ZYRTEC) 10 mg tablet 07-13 00:00: 00 08-11 00:00 :00 No [id number] 10mg Take 1 tablet by mouth in the morning. [facility] fluticasone propionate 50 mcg/actuati on nasal spray 07-13 00:00: 08-11 00:00 :00 No [id number] 2{spray } Use 2 Sprays in each nostril in the morning. [facility] cetirizine (ZYRTEC) 10 mg tablet 07-13 00:00: 00 08-11 00:00 :00 No [id number] 10mg Take 1 tablet by mouth in the morning. [facility] fluticasone propionate 50 mcg/actuati on nasal spray 07-13 00:00: 00 08-11 00:00 :00 No [id number] 2{spray } Use 2 Sprays in each nostril in the morning. [facility] cetirizine (ZYRTEC) 10 mg tablet 07-13 00:00: 00 08-11 00:00 :00 No [id number] 10mg Take 1 tablet by mouth in the morning. [facility] fluticasone propionate 50 mcg/actuati on nasal spray 07-13 00:00: 00 08-11 00:00 :00 No [id number] 2{spray } Use 2 Sprays in each nostril in the morning. [facility] cetirizine (ZYRTEC) 10 mg tablet 07-13 00:00: 00 08-11 00:00 :00 No [id number] 10mg Take 1 tablet by mouth in the morning. [facility] fluticasone propionate 50 mcg/actuati on nasal spray 07-13 00:00: 00 08-11 00:00 :00 No [id number] 2{spray } Use 2 Sprays in each nostril in the morning. [facility] Levonorgest rel (PLAN B ONE-STEP) 1.5 mg tablet 07-07 00:00: 00 07-08 05:59 :00 Yes [id number] 1.5mg Take 1 tablet by mouth once now for 1 dose. [facility] Levonorgest rel (PLAN B ONE-STEP) 1.5 mg tablet 07-07 00:00: 00 07-08 05:59 :00 Yes [id number] 1.5mg Take 1 tablet by mouth once now for 1 dose. [facility] ARIPiprazol e 15 mg tablet 07-04 00:00: 00 Yes [id number] 15mg Take 1 tablet by mouth in the morning. [facility] atomoxetine 80 mg capsule 0 07-04 00:00: 00 Yes [id number] 80mg Take 1 capsule by mouth in the morning. [facility] ARIPiprazol e 15 mg tablet 0 07-04 00:00: 00 Yes [id number] 15mg Take 1 tablet by mouth in the morning. [facility] atomoxetine 80 mg capsule 0 07-04 00:00: 00 Yes [id number] 80mg Take 1 capsule by mouth in the morning. [facility] ARIPiprazol e 15 mg tablet 0 07-04 00:00: 00 Yes [id number] 15mg Take 1 tablet by mouth in the morning. [facility] atomoxetine 80 mg capsule 07-04 00:00: 00 Yes [id number] 80mg Take 1 capsule by mouth in the morning. [facility] ARIPiprazol e 15 mg tablet 0 07-04 00:00: 00 Yes [id number] 15mg Take 1 tablet by mouth in the morning. [facility] atomoxetine 80 mg capsule 0 07-04 00:00: 00 Yes [id number] 80mg Take 1 capsule by mouth in the morning. [facility] ARIPiprazol e 15 mg tablet 0 07-04 00:00: 00 Yes [id number] 15mg Take 1 tablet by mouth in the morning. [facility] ARIPiprazol e 15 mg tablet 2023-0 07-04 00:00: 00 Yes [id number] 15mg Take 1 tablet by mouth in the morning. [facility] ARIPiprazol e 15 mg tablet 2023-0 07-04 00:00: 00 Yes [id number] 15mg Take 1 tablet by mouth in the morning. [facility] ARIPiprazol e 15 mg tablet 07-04 00:00: 00 Yes [id number] 15mg Take 1 tablet by mouth in the morning. [facility] ARIPiprazol e 15 mg tablet 07-04 00:00: 00 Yes [id number] 15mg Take 1 tablet by mouth in the morning. [facility] ARIPiprazol e 15 mg tablet 07-04 00:00: 00 Yes [id number] 15mg Take 1 tablet by mouth in the morning. [facility] ARIPiprazol e 15 mg tablet 07-04 00:00: 00 08-11 00:00 :00 No [id number] 15mg Take 1 tablet by mouth in the morning. [facility] ARIPiprazol e 15 mg tablet 07-04 00:00: 00 08-11 00:00 :00 No [id number] 15mg Take 1 tablet by mouth in the morning. [facility] ARIPiprazol e 15 mg tablet 07-04 00:00: 00 08-11 00:00 :00 No [id number] 15mg Take 1 tablet by mouth in the morning. [facility] ARIPiprazol e 15 mg tablet 07-04 00:00: 00 08-11 00:00 :00 No [id number] 15mg Take 1 tablet by mouth in the morning. [facility] atomoxetine 80 mg capsule 07-04 00:00: 00 07-13 00:00 :00 No [id number] 80mg Take 1 capsule by mouth in the morning. [facility] atomoxetine 80 mg capsule 07-04 00:00: 00 07-13 00:00 :00 No [id number] 80mg Take 1 capsule by mouth in the morning. [facility] hydrOXYzine 50 mg capsule 2022-07 00:00: 00 Yes TAKE 1 CAPSULE BY MOUTH THREE TIMES A DAY NEEDED [facility] hydrOXYzine 50 mg capsule 2022-07 00:00: 00 Yes TAKE 1 CAPSULE BY MOUTH THREE TIMES A DAY NEEDED [facility] hydrOXYzine 50 mg capsule 2022-07 00:00: 00 Yes TAKE 1 CAPSULE BY MOUTH THREE TIMES A DAY NEEDED [facility] hydrOXYzine 50 mg capsule 2022-07 00:00: 00 Yes TAKE 1 CAPSULE BY MOUTH THREE TIMES A DAY NEEDED [facility] hydrOXYzine 50 mg capsule 2022-07 00:00: 00 Yes TAKE 1 CAPSULE BY MOUTH THREE TIMES A DAY NEEDED [facility] hydrOXYzine 50 mg capsule 2022-07 00:00: 00 Yes TAKE 1 CAPSULE BY MOUTH THREE TIMES A DAY NEEDED [facility] hydrOXYzine 50 mg capsule 2022-07 00:00: 00 Yes TAKE 1 CAPSULE BY MOUTH THREE TIMES A DAY NEEDED [facility] hydrOXYzine 50 mg capsule 2022-07 00:00: 00 Yes TAKE 1 CAPSULE BY MOUTH THREE TIMES A DAY NEEDED [facility] hydrOXYzine 50 mg capsule 2022-07 00:00: 00 Yes TAKE 1 CAPSULE BY MOUTH THREE TIMES A DAY NEEDED [facility] hydrOXYzine 50 mg capsule 2022-07 00:00: 00 Yes TAKE 1 CAPSULE BY MOUTH THREE TIMES A DAY NEEDED [facility] hydrOXYzine 50 mg capsule 2022-07 00:00: 00 Yes TAKE 1 CAPSULE BY MOUTH THREE TIMES A DAY NEEDED [facility] hydrOXYzine 50 mg capsule 2022-07 00:00: 00 Yes TAKE 1 CAPSULE BY MOUTH THREE TIMES A DAY NEEDED [facility] hydrOXYzine 50 mg capsule 2022-07 00:00: 00 Yes TAKE 1 CAPSULE BY MOUTH THREE TIMES A DAY NEEDED [facility] hydrOXYzine 50 mg capsule 2022-07 00:00: 00 07-13 00:00 :00 No TAKE 1 CAPSULE BY MOUTH THREE TIMES A DAY NEEDED [facility] hydrOXYzine 50 mg capsule 2022-07 00:00: 00 07-13 00:00 :00 No TAKE 1 CAPSULE BY MOUTH THREE TIMES A DAY NEEDED [facility] diclofenac 75 mg EC tablet 2022-07 00:00: 00 Yes TAKE 1 TABLET BY MOUTH EVERY 12 HOURS NEEDED FOR PAIN [facility] diclofenac 75 mg EC tablet 2022-07 00:00: 00 Yes TAKE 1 TABLET BY MOUTH EVERY 12 HOURS NEEDED FOR PAIN [facility] diclofenac 75 mg EC tablet 2022-07 00:00: 00 Yes TAKE 1 TABLET BY MOUTH EVERY 12 HOURS NEEDED FOR PAIN [facility] diclofenac 75 mg EC tablet 2022-07 00:00: 00 Yes TAKE 1 TABLET BY MOUTH EVERY 12 HOURS NEEDED FOR PAIN [facility] diclofenac 75 mg EC tablet 2022-07 00:00: 00 Yes TAKE 1 TABLET BY MOUTH EVERY 12 HOURS NEEDED FOR PAIN [facility] diclofenac 75 mg EC tablet 2022-07 00:00: 00 Yes TAKE 1 TABLET BY MOUTH EVERY 12 HOURS NEEDED FOR PAIN [facility] diclofenac 75 mg EC tablet 2022-07 00:00: 00 Yes TAKE 1 TABLET BY MOUTH EVERY 12 HOURS NEEDED FOR PAIN [facility] diclofenac 75 mg EC tablet 2022-07 00:00: 00 Yes TAKE 1 TABLET BY MOUTH EVERY 12 HOURS NEEDED FOR PAIN [facility] diclofenac 75 mg EC tablet 2022-07 00:00: 00 Yes TAKE 1 TABLET BY MOUTH EVERY 12 HOURS NEEDED FOR PAIN [facility] diclofenac 75 mg EC tablet 2022-07 00:00: 00 Yes TAKE 1 TABLET BY MOUTH EVERY 12 HOURS NEEDED FOR PAIN [facility] diclofenac 75 mg EC tablet 2022-07 00:00: 00 Yes TAKE 1 TABLET BY MOUTH EVERY 12 HOURS NEEDED FOR PAIN [facility] diclofenac 75 mg EC tablet 2022-07 00:00: 00 Yes TAKE 1 TABLET BY MOUTH EVERY 12 HOURS NEEDED FOR PAIN [facility] diclofenac 75 mg EC tablet 2022-07 00:00: 00 Yes TAKE 1 TABLET BY MOUTH EVERY 12 HOURS NEEDED FOR PAIN [facility] diclofenac 75 mg EC tablet 2022-07 00:00: 00 07-13 00:00 :00 No TAKE 1 TABLET BY MOUTH EVERY 12 HOURS NEEDED FOR PAIN [facility] diclofenac 75 mg EC tablet 2022-07 00:00: 00 07-13 00:00 :00 No TAKE 1 TABLET BY MOUTH EVERY 12 HOURS NEEDED FOR PAIN [facility] ketorolac (TORADOL) injection 60 mg 2022-07 00:00: 04-26 00:12 :00 No 60mg 60 mg, Intramuscu lar, ONCE, 1 dose, On Mon04/25/23 at 1900, ARLEN [facility] ketorolac 10 mg tablet 2022-07 0 00:00: 00 Yes [id number] 10mg Take 1 tablet by mouth every 6 (six) hours as needed for Pain (scale 4-6). [facility] ketorolac 10 mg tablet 2022-07 00:00: 00 Yes [id number] 10mg Take 1 tablet by mouth every 6 (six) hours as needed for Pain (scale 4-6). [facility] ketorolac 10 mg tablet 2022-07 0 00:00: 00 Yes [id number] 10mg Take 1 tablet by mouth every 6 (six) hours as needed for Pain (scale 4-6). [facility] ketorolac 10 mg tablet 2022-07 0 00:00: 00 Yes [id number] 10mg Take 1 tablet by mouth every 6 (six) hours as needed for Pain (scale 4-6). [facility] ketorolac 10 mg tablet 2022-07 0 00:00: 00 Yes [id number] 10mg Take 1 tablet by mouth every 6 (six) hours as needed for Pain (scale 4-6). [facility] ketorolac 10 mg tablet 2022-07 024 00:00: 00 Yes [id number] 10mg Take 1 tablet by mouth every 6 (six) hours as needed for Pain (scale 4-6). [facility] ketorolac 10 mg tablet 2022-07 0-24 00:00: 00 Yes [id number] 10mg Take 1 tablet by mouth every 6 (six) hours as needed for Pain (scale 4-6). [facility] ketorolac 10 mg tablet 2022-07 024 00:00: 00 Yes [id number] 10mg Take 1 tablet by mouth every 6 (six) hours as needed for Pain (scale 4-6). [facility] ketorolac 10 mg tablet 2022-07 024 00:00: 00 Yes [id number] 10mg Take 1 tablet by mouth every 6 (six) hours as needed for Pain (scale 4-6). [facility] ketorolac 10 mg tablet 2022-07 024 00:00: 00 Yes [id number] 10mg Take 1 tablet by mouth every 6 (six) hours as needed for Pain (scale 4-6). [facility] ketorolac 10 mg tablet 2022-07 024 00:00: 00 Yes [id number] 10mg Take 1 tablet by mouth every 6 (six) hours as needed for Pain (scale 4-6). [facility] ketorolac 10 mg tablet 2022-07 024 00:00: 00 Yes [id number] 10mg Take 1 tablet by mouth every 6 (six) hours as needed for Pain (scale 4-6). [facility] ketorolac 10 mg tablet 2022-07 024 00:00: 00 Yes [id number] 10mg Take 1 tablet by mouth every 6 (six) hours as needed for Pain (scale 4-6). [facility] ketorolac 10 mg tablet 2022-07 0-24 00:00: 00 Yes [id number] 10mg Take 1 tablet by mouth every 6 (six) hours as needed for Pain (scale 4-6). [facility] ketorolac 10 mg tablet 2022-07 0-24 00:00: 00 Yes [id number] 10mg Take 1 tablet by mouth every 6 (six) hours as needed for Pain (scale 4-6). [facility] ketorolac 10 mg tablet 2022-07 0-24 00:00: 00 Yes [id number] 10mg Take 1 tablet by mouth every 6 (six) hours as needed for Pain (scale 4-6). [facility] ketorolac 10 mg tablet 2022-07 0-24 00:00: 00 Yes [id number] 10mg Take 1 tablet by mouth every 6 (six) hours as needed for Pain (scale 4-6). [facility] ketorolac 10 mg tablet 2022-07 024 00:00: 00 Yes [id number] 10mg Take 1 tablet by mouth every 6 (six) hours as needed for Pain (scale 4-6). [facility] ketorolac 10 mg tablet 2022-07 0 00:00: 00 Yes [id number] 10mg Take 1 tablet by mouth every 6 (six) hours as needed for Pain (scale 4-6). [facility] ketorolac 10 mg tablet 2022-07 0 00:00: 00 Yes [id number] 10mg Take 1 tablet by mouth every 6 (six) hours as needed for Pain (scale 4-6). [facility] ketorolac 10 mg tablet 2022-07 0 00:00: 00 07-13 00:00 :00 No [id number] 10mg Take 1 tablet by mouth every 6 (six) hours as needed for Pain (scale 4-6). [facility] ketorolac 10 mg tablet 2022-07 024 00:00: 00 07-13 00:00 :00 No [id number] 10mg Take 1 tablet by mouth every 6 (six) hours as needed for Pain (scale 4-6). [facility] ARIPiprazol e 15 mg tablet 2022-07 0 00:00: 00 Yes [id number] 15mg Take 1 tablet by mouth in the morning. [facility] atomoxetine 80 mg capsule 2022-07 0 00:00: 00 Yes [id number] 80mg Take 1 capsule by mouth in the morning. [facility] naltrexone 50 mg tablet 2022-07 0 00:00: 00 Yes [id number] 50mg Take 1 tablet by mouth in the morning. [facility] ARIPiprazol e 15 mg tablet 2022-07 0 00:00: 00 Yes [id number] 15mg Take 1 tablet by mouth in the morning. [facility] atomoxetine 80 mg capsule 2022-07 0 00:00: 00 Yes [id number] 80mg Take 1 capsule by mouth in the morning. [facility] naltrexone 50 mg tablet 2022-07 0 00:00: 00 Yes [id number] 50mg Take 1 tablet by mouth in the morning. [facility] ARIPiprazol e 15 mg tablet 2022-07 0 00:00: 00 Yes [id number] 15mg Take 1 tablet by mouth in the morning. [facility] atomoxetine 80 mg capsule 2022-07 0 00:00: 00 Yes [id number] 80mg Take 1 capsule by mouth in the morning. [facility] naltrexone 50 mg tablet 2022-07 0 00:00: 00 Yes [id number] 50mg Take 1 tablet by mouth in the morning. [facility] ARIPiprazol e 15 mg tablet 2022-07 0 00:00: 00 Yes [id number] 15mg Take 1 tablet by mouth in the morning. [facility] atomoxetine 80 mg capsule 2022-07 0 00:00: 00 Yes [id number] 80mg Take 1 capsule by mouth in the morning. [facility] naltrexone 50 mg tablet 2022-07 0 00:00: 00 Yes [id number] 50mg Take 1 tablet by mouth in the morning. [facility] ARIPiprazol e 15 mg tablet 2022-07 0 00:00: 00 Yes [id number] 15mg Take 1 tablet by mouth in the morning. [facility] atomoxetine 80 mg capsule 2022-07 0 00:00: 00 Yes [id number] 80mg Take 1 capsule by mouth in the morning. [facility] naltrexone 50 mg tablet 2022-07 0 00:00: 00 Yes [id number] 50mg Take 1 tablet by mouth in the morning. [facility] ARIPiprazol e 15 mg tablet 2022-07 0- 00:00: 00 Yes [id number] 15mg Take 1 tablet by mouth in the morning. [facility] atomoxetine 80 mg capsule 2022-07 0- 00:00: 00 Yes [id number] 80mg Take 1 capsule by mouth in the morning. [facility] naltrexone 50 mg tablet 2022-07 0- 00:00: 00 Yes [id number] 50mg Take 1 tablet by mouth in the morning. [facility] ARIPiprazol e 15 mg tablet 2022-07 0 00:00: 00 Yes [id number] 15mg Take 1 tablet by mouth in the morning. [facility] atomoxetine 80 mg capsule 2022-07 0 00:00: 00 Yes [id number] 80mg Take 1 capsule by mouth in the morning. [facility] naltrexone 50 mg tablet 2022-07 0 00:00: 00 Yes [id number] 50mg Take 1 tablet by mouth in the morning. [facility] ARIPiprazol e 15 mg tablet 2022-07 0 00:00: 00 Yes [id number] 15mg Take 1 tablet by mouth in the morning. [facility] atomoxetine 80 mg capsule 2022-07 0 00:00: 00 Yes [id number] 80mg Take 1 capsule by mouth in the morning. [facility] naltrexone 50 mg tablet 2022-07 0 00:00: 00 Yes [id number] 50mg Take 1 tablet by mouth in the morning. [facility] ARIPiprazol e 15 mg tablet 2022-07 0 00:00: 00 Yes [id number] 15mg Take 1 tablet by mouth in the morning. [facility] atomoxetine 80 mg capsule 2022-07 0- 00:00: 00 Yes [id number] 80mg Take 1 capsule by mouth in the morning. [facility] naltrexone 50 mg tablet 2022-07 0- 00:00: 00 Yes [id number] 50mg Take 1 tablet by mouth in the morning. [facility] ARIPiprazol e 15 mg tablet 2022-07 017 00:00: 00 Yes [id number] 15mg Take 1 tablet by mouth in the morning. [facility] atomoxetine 80 mg capsule 2022-07 0- 00:00: 00 Yes [id number] 80mg Take 1 capsule by mouth in the morning. [facility] naltrexone 50 mg tablet 2022-07 0- 00:00: 00 Yes [id number] 50mg Take 1 tablet by mouth in the morning. [facility] ARIPiprazol e 15 mg tablet 2022-07 0 00:00: 00 Yes [id number] 15mg Take 1 tablet by mouth in the morning. [facility] atomoxetine 80 mg capsule 2022-07 0 00:00: 00 Yes [id number] 80mg Take 1 capsule by mouth in the morning. [facility] naltrexone 50 mg tablet 2022-07 0 00:00: 00 Yes [id number] 50mg Take 1 tablet by mouth in the morning. [facility] ARIPiprazol e 15 mg tablet 2022-07 0 00:00: 00 Yes [id number] 15mg Take 1 tablet by mouth in the morning. [facility] atomoxetine 80 mg capsule 2022-07 0 00:00: 00 Yes [id number] 80mg Take 1 capsule by mouth in the morning. [facility] naltrexone 50 mg tablet 2022-07 0 00:00: 00 Yes [id number] 50mg Take 1 tablet by mouth in the morning. [facility] ARIPiprazol e 15 mg tablet 2022-07 0 00:00: 00 Yes [id number] 15mg Take 1 tablet by mouth in the morning. [facility] atomoxetine 80 mg capsule 2022-07 0- 00:00: 00 Yes [id number] 80mg Take 1 capsule by mouth in the morning. [facility] naltrexone 50 mg tablet 2022-07 0- 00:00: 00 Yes [id number] 50mg Take 1 tablet by mouth in the morning. [facility] ARIPiprazol e 15 mg tablet 2022-07 0 00:00: 00 Yes [id number] 15mg Take 1 tablet by mouth in the morning. [facility] atomoxetine 80 mg capsule 2022-07 0 00:00: 00 Yes [id number] 80mg Take 1 capsule by mouth in the morning. [facility] naltrexone 50 mg tablet 2022-07 0 00:00: 00 Yes [id number] 50mg Take 1 tablet by mouth in the morning. [facility] ARIPiprazol e 15 mg tablet 2022-07 0 00:00: 00 Yes [id number] 15mg Take 1 tablet by mouth in the morning. [facility] atomoxetine 80 mg capsule 2022-07 0 00:00: 00 Yes [id number] 80mg Take 1 capsule by mouth in the morning. [facility] naltrexone 50 mg tablet 2022-07 0 00:00: 00 Yes [id number] 50mg Take 1 tablet by mouth in the morning. [facility] ARIPiprazol e 15 mg tablet 2022-07 0 00:00: 00 Yes [id number] 15mg Take 1 tablet by mouth in the morning. [facility] atomoxetine 80 mg capsule 2022-07 0 00:00: 00 Yes [id number] 80mg Take 1 capsule by mouth in the morning. [facility] naltrexone 50 mg tablet 2022-07 0 00:00: 00 Yes [id number] 50mg Take 1 tablet by mouth in the morning. [facility] ARIPiprazol e 15 mg tablet 2022-07 0 00:00: 00 Yes [id number] 15mg Take 1 tablet by mouth in the morning. [facility] atomoxetine 80 mg capsule 2022-07 0 00:00: 00 Yes [id number] 80mg Take 1 capsule by mouth in the morning. [facility] ARIPiprazol e 15 mg tablet 2022-07 0 00:00: 00 Yes [id number] 15mg Take 1 tablet by mouth in the morning. [facility] atomoxetine 80 mg capsule 2022-07 0 00:00: 00 Yes [id number] 80mg Take 1 capsule by mouth in the morning. [facility] ARIPiprazol e 15 mg tablet 2022-07 0-17 00:00: 00 Yes [id number] 15mg Take 1 tablet by mouth in the morning. [facility] atomoxetine 80 mg capsule 2022-07 0-17 00:00: 00 Yes [id number] 80mg Take 1 capsule by mouth in the morning. [facility] Lamotrigine 50 mg tablet 2022-07 0-17 00:00: 00 07-18 05:59 :00 No [id number] 50mg Take 1 tablet by mouth in the morning for 90 days. [facility] Lamotrigine 50 mg tablet 2022-07 0-17 00:00: 00 07-18 05:59 :00 No [id number] 50mg Take 1 tablet by mouth in the morning for 90 days. [facility] Lamotrigine 50 mg tablet 2022-07 0-17 00:00: 00 07-18 05:59 :00 No [id number] 50mg Take 1 tablet by mouth in the morning for 90 days. [facility] Lamotrigine 50 mg tablet 2022-07 0-17 00:00: 00 07-18 05:59 :00 No [id number] 50mg Take 1 tablet by mouth in the morning for 90 days. [facility] Lamotrigine 50 mg tablet 2022-07 0-17 00:00: 00 07-18 05:59 :00 No [id number] 50mg Take 1 tablet by mouth in the morning for 90 days. [facility] Lamotrigine 50 mg tablet 2022-07 0-17 00:00: 00 07-18 05:59 :00 No [id number] 50mg Take 1 tablet by mouth in the morning for 90 days. [facility] Lamotrigine 50 mg tablet 2022-07 0-17 00:00: 00 07-18 05:59 :00 No [id number] 50mg Take 1 tablet by mouth in the morning for 90 days. [facility] Lamotrigine 50 mg tablet 2022-07 0-17 00:00: 00 07-18 05:59 :00 No [id number] 50mg Take 1 tablet by mouth in the morning for 90 days. [facility] Lamotrigine 50 mg tablet 2022-07 0-17 00:00: 00 07-18 05:59 :00 No [id number] 50mg Take 1 tablet by mouth in the morning for 90 days. [facility] Lamotrigine 50 mg tablet 2022-07 0-17 00:00: 00 07-18 05:59 :00 No [id number] 50mg Take 1 tablet by mouth in the morning for 90 days. [facility] Lamotrigine 50 mg tablet 2022-07 0-17 00:00: 00 07-18 05:59 :00 No [id number] 50mg Take 1 tablet by mouth in the morning for 90 days. [facility] Lamotrigine 50 mg tablet 2022-07 0-17 00:00: 00 07-18 05:59 :00 No [id number] 50mg Take 1 tablet by mouth in the morning for 90 days. [facility] Lamotrigine 50 mg tablet 2022-07 0-17 00:00: 00 07-18 05:59 :00 No [id number] 50mg Take 1 tablet by mouth in the morning for 90 days. [facility] Lamotrigine 50 mg tablet 2022-07 0-17 00:00: 00 07-18 05:59 :00 No [id number] 50mg Take 1 tablet by mouth in the morning for 90 days. [facility] Lamotrigine 50 mg tablet 2022-07 0-17 00:00: 00 07-18 05:59 :00 No [id number] 50mg Take 1 tablet by mouth in the morning for 90 days. [facility] Lamotrigine 50 mg tablet 2022-07 0-17 00:00: 00 07-18 05:59 :00 No [id number] 50mg Take 1 tablet by mouth in the morning for 90 days. [facility] ARIPiprazol e 15 mg tablet 2022-07 0-17 00:00: 00 07-04 00:00 :00 No [id number] 15mg Take 1 tablet by mouth in the morning. [facility] atomoxetine 80 mg capsule 2022-07 0-17 00:00: 00 07-04 00:00 :00 No [id number] 80mg Take 1 capsule by mouth in the morning. [facility] ARIPiprazol e 15 mg tablet 2022-07 0-17 00:00: 00 07-04 00:00 :00 No [id number] 15mg Take 1 tablet by mouth in the morning. [facility] atomoxetine 80 mg capsule 2022-07 0-17 00:00: 00 07-04 00:00 :00 No [id number] 80mg Take 1 capsule by mouth in the morning. [facility] Lamotrigine 50 mg tablet 2022-07 0-17 00:00: 00 06-20 00:00 :00 No [id number] 50mg Take 1 tablet by mouth in the morning for 90 days. [facility] naltrexone 50 mg tablet 2022-07 0-17 00:00: 00 06-20 00:00 :00 No [id number] 50mg Take 1 tablet by mouth in the morning. [facility] Lamotrigine 50 mg tablet 2022-07 0-17 00:00: 00 06-20 00:00 :00 No [id number] 50mg Take 1 tablet by mouth in the morning for 90 days. [facility] naltrexone 50 mg tablet 2022-07 0-17 00:00: 00 06-20 00:00 :00 No [id number] 50mg Take 1 tablet by mouth in the morning. [facility] Lamotrigine 50 mg tablet 2022-07 0-17 00:00: 00 06-20 00:00 :00 No [id number] 50mg Take 1 tablet by mouth in the morning for 90 days. [facility] naltrexone 50 mg tablet 2022-07 0-17 00:00: 00 06-20 00:00 :00 No [id number] 50mg Take 1 tablet by mouth in the morning. [facility] Lamotrigine 50 mg tablet 2022-07 0-17 00:00: 00 06-20 00:00 :00 No [id number] 50mg Take 1 tablet by mouth in the morning for 90 days. [facility] naltrexone 50 mg tablet 2022- 0-17 00:00: 00 06-20 00:00 :00 No [id number] 50mg Take 1 tablet by mouth in the morning. [facility] hydrOXYzine 25 mg tablet 3-0 7-25 00:00: 00 Yes [id number] 25mg Take 1 tablet by mouth every 6 (six) hours as needed for Anxiety. [facility] hydrOXYzine 25 mg tablet 3-0 7-25 00:00: 00 Yes [id number] 25mg Take 1 tablet by mouth every 6 (six) hours as needed for Anxiety. [facility] hydrOXYzine 25 mg tablet 3-0 7-25 00:00: 00 Yes [id number] 25mg Take 1 tablet by mouth every 6 (six) hours as needed for Anxiety. [facility] hydrOXYzine 25 mg tablet 3-0 7-25 00:00: 00 Yes [id number] 25mg Take 1 tablet by mouth every 6 (six) hours as needed for Anxiety. [facility] hydrOXYzine 25 mg tablet 3-0 7-25 00:00: 00 Yes [id number] 25mg Take 1 tablet by mouth every 6 (six) hours as needed for Anxiety. [facility] hydrOXYzine 25 mg tablet 3-0 7-25 00:00: 00 Yes [id number] 25mg Take 1 tablet by mouth every 6 (six) hours as needed for Anxiety. [facility] hydrOXYzine 25 mg tablet 3-0 7-25 00:00: 00 Yes [id number] 25mg Take 1 tablet by mouth every 6 (six) hours as needed for Anxiety. [facility] hydrOXYzine 25 mg tablet 3-0 7-25 00:00: 00 Yes [id number] 25mg Take 1 tablet by mouth every 6 (six) hours as needed for Anxiety. [facility] hydrOXYzine 25 mg tablet 3-0 7-25 00:00: 00 Yes [id number] 25mg Take 1 tablet by mouth every 6 (six) hours as needed for Anxiety. [facility] 2023-0 7-25 00:00: 00 Yes [id number] 25mg Take 1 tablet by mouth every 6 (six) hours as needed for Anxiety. [facility] mg tablet 2023-0 7-25 00:00: 00 Yes [id number] 25mg Take 1 tablet by mouth every 6 (six) hours as needed for Anxiety. [facility] mg tablet 2023-0 7-25 00:00: 00 Yes [id number] 25mg Take 1 tablet by mouth every 6 (six) hours as needed for Anxiety. [facility] mg tablet 2023-0 7-25 00:00: 00 Yes [id number] 25mg Take 1 tablet by mouth every 6 (six) hours as needed for Anxiety. [facility] mg tablet 2023-0 7-25 00:00: 00 Yes [id number] 25mg Take 1 tablet by mouth every 6 (six) hours as needed for Anxiety. [facility] hydrOXYzine 25 mg tablet 2023-0 7-25 00:00: 00 Yes [id number] 25mg Take 1 tablet by mouth every 6 (six) hours as needed for Anxiety. [facility] hydrOXYzine 25 mg tablet 2023-0 7-25 00:00: 00 Yes [id number] 25mg Take 1 tablet by mouth every 6 (six) hours as needed for Anxiety. [facility] mg tablet 2023-0 7-25 00:00: 00 Yes [id number] 25mg Take 1 tablet by mouth every 6 (six) hours as needed for Anxiety. [facility] hydrOXYzine 25 mg tablet 2023-0 7-25 00:00: 00 Yes [id number] 25mg Take 1 tablet by mouth every 6 (six) hours as needed for Anxiety. [facility] mg tablet 2023-0 7-25 00:00: 00 Yes [id number] 25mg Take 1 tablet by mouth every 6 (six) hours as needed for Anxiety. [facility] mg tablet 2023-0 7-25 00:00: 00 Yes [id number] 25mg Take 1 tablet by mouth every 6 (six) hours as needed for Anxiety. [facility] mg tablet 2023-0 7-25 00:00: 00 Yes [id number] 25mg Take 1 tablet by mouth every 6 (six) hours as needed for Anxiety. [facility]-0 7-25 00:00: 00 Yes [id number] 25mg Take 1 tablet by mouth every 6 (six) hours as needed for Anxiety. [facility] tablet 2023-0 7-25 00:00: 00 Yes [id number] 25mg Take 1 tablet by mouth every 6 (six) hours as needed for Anxiety. [facility] tablet 2023-0 7-25 00:00: 00 Yes [id number] 25mg Take 1 tablet by mouth every 6 (six) hours as needed for Anxiety. [facility] tablet 2023-0 7-25 00:00: 00 Yes [id number] 25mg Take 1 tablet by mouth every 6 (six) hours as needed for Anxiety. [facility] hydrOXYzine 25 mg tablet 2023-0 7-25 00:00: 00 Yes [id number] 25mg Take 1 tablet by mouth every 6 (six) hours as needed for Anxiety. [facility] hydrOXYzine 25 mg tablet 2023-0 7-25 00:00: 00 Yes [id number] 25mg Take 1 tablet by mouth every 6 (six) hours as needed for Anxiety. [facility] 2023-0 7-25 00:00: 00 Yes [id number] 25mg Take 1 tablet by mouth every 6 (six) hours as needed for Anxiety. [facility] hydrOXYzine 25 mg tablet 2023-0 7-25 00:00: 00 Yes [id number] 25mg Take 1 tablet by mouth every 6 (six) hours as needed for Anxiety. [facility] tablet 2023-0 7-25 00:00: 00 Yes [id number] 25mg Take 1 tablet by mouth every 6 (six) hours as needed for Anxiety. [facility] hydrOXYzine 25 mg tablet 2023-0 7-25 00:00: 00 Yes [id number] 25mg Take 1 tablet by mouth every 6 (six) hours as needed for Anxiety. [facility] tablet 2023-0 7-25 00:00: 00 Yes [id number] 25mg Take 1 tablet by mouth every 6 (six) hours as needed for Anxiety. [facility] hydrOXYzine 25 mg tablet 2023-0 7-25 00:00: 00 Yes [id number] 25mg Take 1 tablet by mouth every 6 (six) hours as needed for Anxiety. [facility] hydrOXYzine 25 mg tablet 2023-0 7-25 00:00: 00 Yes [id number] 25mg Take 1 tablet by mouth every 6 (six) hours as needed for Anxiety. [facility] hydrOXYzine 25 mg tablet 2023-0 7-25 00:00: 00 Yes [id number] 25mg Take 1 tablet by mouth every 6 (six) hours as needed for Anxiety. [facility] hydrOXYzine 25 mg tablet 2023-0 7-25 00:00: 00 Yes [id number] 25mg Take 1 tablet by mouth every 6 (six) hours as needed for Anxiety. [facility] hydrOXYzine 25 mg tablet 2023-0 7-25 00:00: 00 Yes [id number] 25mg Take 1 tablet by mouth every 6 (six) hours as needed for Anxiety. [facility] hydrOXYzine 25 mg tablet 2023-0 7-25 00:00: 00 Yes [id number] 25mg Take 1 tablet by mouth every 6 (six) hours as needed for Anxiety. [facility] hydrOXYzine 25 mg tablet 2023-0 7-25 00:00: 00 Yes [id number] 25mg Take 1 tablet by mouth every 6 (six) hours as needed for Anxiety. [facility] hydrOXYzine 25 mg tablet 2023-0 7-25 00:00: 00 Yes [id number] 25mg Take 1 tablet by mouth every 6 (six) hours as needed for Anxiety. [facility] hydrOXYzine 25 mg tablet 2023-0 7-25 00:00: 00 Yes [id number] 25mg Take 1 tablet by mouth every 6 (six) hours as needed for Anxiety. [facility] hydrOXYzine 25 mg tablet 2022-0 25 00:00: 00 07-13 00:00 :00 No [id number] 25mg Take 1 tablet by mouth every 6 (six) hours as needed for Anxiety. [facility] hydrOXYzine 25 mg tablet 2022-0 25 00:00: 00 07-13 00:00 :00 No [id number] 25mg Take 1 tablet by mouth every 6 (six) hours as needed for Anxiety. [facility] atomoxetine 80 mg capsule 0 01-18 00:00: 00 Yes [id number] 80mg Take 1 capsule by mouth in the morning. [facility] ARIPiprazol e 15 mg tablet 0 01-18 00:00: 00 Yes [id number] 15mg Take 1 tablet by mouth in the morning. [facility] lamoTRIgine 25 mg tablet 0 01-18 00:00: 00 Yes [id number] 25mg Take 1 tablet by mouth in the morning. [facility] naltrexone 50 mg tablet 0 01-18 00:00: 00 Yes [id number] 50mg Take 1 tablet by mouth in the morning. [facility] atomoxetine 80 mg capsule 2022-0 01-18 00:00: 00 Yes [id number] 80mg Take 1 capsule by mouth in the morning. [facility] ARIPiprazol e 15 mg tablet 2022-0 01-18 00:00: 00 Yes [id number] 15mg Take 1 tablet by mouth in the morning. [facility] lamoTRIgine 25 mg tablet 2022-0 01-18 00:00: 00 Yes [id number] 25mg Take 1 tablet by mouth in the morning. [facility] naltrexone 50 mg tablet 0 01-18 00:00: 00 Yes [id number] 50mg Take 1 tablet by mouth in the morning. [facility] atomoxetine 80 mg capsule 2022-0 01-18 00:00: 00 Yes [id number] 80mg Take 1 capsule by mouth in the morning. [facility] ARIPiprazol e 15 mg tablet 2022-0 01-18 00:00: 00 Yes [id number] 15mg Take 1 tablet by mouth in the morning. [facility] lamoTRIgine 25 mg tablet 2022-0 01-18 00:00: 00 Yes [id number] 25mg Take 1 tablet by mouth in the morning. [facility] naltrexone 50 mg tablet 2022-0 01-18 00:00: 00 Yes [id number] 50mg Take 1 tablet by mouth in the morning. [facility] atomoxetine 80 mg capsule 2022-0 01-18 00:00: 00 Yes [id number] 80mg Take 1 capsule by mouth in the morning. [facility] ARIPiprazol e 15 mg tablet 0 01-18 00:00: 00 Yes [id number] 15mg Take 1 tablet by mouth in the morning. [facility] lamoTRIgine 25 mg tablet 2022-0 01-18 00:00: 00 Yes [id number] 25mg Take 1 tablet by mouth in the morning. [facility] naltrexone 50 mg tablet 2022-0 01-18 00:00: 00 Yes [id number] 50mg Take 1 tablet by mouth in the morning. [facility] atomoxetine 80 mg capsule 0 01-18 00:00: 00 Yes [id number] 80mg Take 1 capsule by mouth in the morning. [facility] ARIPiprazol e 15 mg tablet 0 01-18 00:00: 00 Yes [id number] 15mg Take 1 tablet by mouth in the morning. [facility] lamoTRIgine 25 mg tablet 2022-0 01-18 00:00: 00 Yes [id number] 25mg Take 1 tablet by mouth in the morning. [facility] naltrexone 50 mg tablet 2022-0 01-18 00:00: 00 Yes [id number] 50mg Take 1 tablet by mouth in the morning. [facility] atomoxetine 80 mg capsule 2022-0 01-18 00:00: 00 Yes [id number] 80mg Take 1 capsule by mouth in the morning. [facility] ARIPiprazol e 15 mg tablet 2022-0 01-18 00:00: 00 Yes [id number] 15mg Take 1 tablet by mouth in the morning. [facility] lamoTRIgine 25 mg tablet 2022-0 01-18 00:00: 00 Yes [id number] 25mg Take 1 tablet by mouth in the morning. [facility] naltrexone 50 mg tablet 0 01-18 00:00: 00 Yes [id number] 50mg Take 1 tablet by mouth in the morning. [facility] atomoxetine 80 mg capsule 0 01-18 00:00: 00 Yes [id number] 80mg Take 1 capsule by mouth in the morning. [facility] ARIPiprazol e 15 mg tablet 0 01-18 00:00: 00 Yes [id number] 15mg Take 1 tablet by mouth in the morning. [facility] lamoTRIgine 25 mg tablet 0 01-18 00:00: 00 Yes [id number] 25mg Take 1 tablet by mouth in the morning. [facility] naltrexone 50 mg tablet 0 01-18 00:00: 00 Yes [id number] 50mg Take 1 tablet by mouth in the morning. [facility] atomoxetine 80 mg capsule 0 01-18 00:00: 00 Yes [id number] 80mg Take 1 capsule by mouth in the morning. [facility] ARIPiprazol e 15 mg tablet 0 01-18 00:00: 00 Yes [id number] 15mg Take 1 tablet by mouth in the morning. [facility] lamoTRIgine 25 mg tablet 0 01-18 00:00: 00 Yes [id number] 25mg Take 1 tablet by mouth in the morning. [facility] naltrexone 50 mg tablet 2022-0 01-18 00:00: 00 Yes [id number] 50mg Take 1 tablet by mouth in the morning. [facility] atomoxetine 80 mg capsule 2022-0 01-18 00:00: 00 Yes [id number] 80mg Take 1 capsule by mouth in the morning. [facility] ARIPiprazol e 15 mg tablet 2022-0 01-18 00:00: 00 Yes [id number] 15mg Take 1 tablet by mouth in the morning. [facility] lamoTRIgine 25 mg tablet 0 01-18 00:00: 00 Yes [id number] 25mg Take 1 tablet by mouth in the morning. [facility] naltrexone 50 mg tablet 0 01-18 00:00: 00 Yes [id number] 50mg Take 1 tablet by mouth in the morning. [facility] atomoxetine 80 mg capsule 0 01-18 00:00: 00 Yes [id number] 80mg Take 1 capsule by mouth in the morning. [facility] ARIPiprazol e 15 mg tablet 0 01-18 00:00: 00 Yes [id number] 15mg Take 1 tablet by mouth in the morning. [facility] lamoTRIgine 25 mg tablet 0 01-18 00:00: 00 Yes [id number] 25mg Take 1 tablet by mouth in the morning. [facility] naltrexone 50 mg tablet 0 01-18 00:00: 00 Yes [id number] 50mg Take 1 tablet by mouth in the morning. [facility] atomoxetine 80 mg capsule 0 01-18 00:00: 00 Yes [id number] 80mg Take 1 capsule by mouth in the morning. [facility] ARIPiprazol e 15 mg tablet 0 01-18 00:00: 00 Yes [id number] 15mg Take 1 tablet by mouth in the morning. [facility] lamoTRIgine 25 mg tablet 0 01-18 00:00: 00 Yes [id number] 25mg Take 1 tablet by mouth in the morning. [facility] naltrexone 50 mg tablet 0 01-18 00:00: 00 Yes [id number] 50mg Take 1 tablet by mouth in the morning. [facility] atomoxetine 80 mg capsule 0 01-18 00:00: 00 Yes [id number] 80mg Take 1 capsule by mouth in the morning. [facility] ARIPiprazol e 15 mg tablet 2022-0 01-18 00:00: 00 Yes [id number] 15mg Take 1 tablet by mouth in the morning. [facility] lamoTRIgine 25 mg tablet 2022-0 01-18 00:00: 00 Yes [id number] 25mg Take 1 tablet by mouth in the morning. [facility] naltrexone 50 mg tablet 0 01-18 00:00: 00 Yes [id number] 50mg Take 1 tablet by mouth in the morning. [facility] atomoxetine 80 mg capsule 2022-0 01-18 00:00: 00 Yes [id number] 80mg Take 1 capsule by mouth in the morning. [facility] ARIPiprazol e 15 mg tablet 0 01-18 00:00: 00 Yes [id number] 15mg Take 1 tablet by mouth in the morning. [facility] lamoTRIgine 25 mg tablet 0 01-18 00:00: 00 Yes [id number] 25mg Take 1 tablet by mouth in the morning. [facility] naltrexone 50 mg tablet 0 01-18 00:00: 00 Yes [id number] 50mg Take 1 tablet by mouth in the morning. [facility] atomoxetine 80 mg capsule 0 01-18 00:00: 00 Yes [id number] 80mg Take 1 capsule by mouth in the morning. [facility] ARIPiprazol e 15 mg tablet 0 01-18 00:00: 00 Yes [id number] 15mg Take 1 tablet by mouth in the morning. [facility] lamoTRIgine 25 mg tablet 0 01-18 00:00: 00 Yes [id number] 25mg Take 1 tablet by mouth in the morning. [facility] naltrexone 50 mg tablet 0 01-18 00:00: 00 Yes [id number] 50mg Take 1 tablet by mouth in the morning. [facility] atomoxetine 80 mg capsule 0 01-18 00:00: 00 Yes [id number] 80mg Take 1 capsule by mouth in the morning. [facility] ARIPiprazol e 15 mg tablet 2022-0 01-18 00:00: 00 Yes [id number] 15mg Take 1 tablet by mouth in the morning. [facility] lamoTRIgine 25 mg tablet 2022-0 01-18 00:00: 00 Yes [id number] 25mg Take 1 tablet by mouth in the morning. [facility] naltrexone 50 mg tablet 0 01-18 00:00: 00 Yes [id number] 50mg Take 1 tablet by mouth in the morning. [facility] atomoxetine 80 mg capsule 2022-0 01-18 00:00: 00 Yes [id number] 80mg Take 1 capsule by mouth in the morning. [facility] ARIPiprazol e 15 mg tablet 0 01-18 00:00: 00 Yes [id number] 15mg Take 1 tablet by mouth in the morning. [facility] lamoTRIgine 25 mg tablet 0 01-18 00:00: 00 Yes [id number] 25mg Take 1 tablet by mouth in the morning. [facility] naltrexone 50 mg tablet 0 01-18 00:00: 00 Yes [id number] 50mg Take 1 tablet by mouth in the morning. [facility] atomoxetine 80 mg capsule 0 01-18 00:00: 00 Yes [id number] 80mg Take 1 capsule by mouth in the morning. [facility] ARIPiprazol e 15 mg tablet 0 01-18 00:00: 00 Yes [id number] 15mg Take 1 tablet by mouth in the morning. [facility] lamoTRIgine 25 mg tablet 0 01-18 00:00: 00 Yes [id number] 25mg Take 1 tablet by mouth in the morning. [facility] naltrexone 50 mg tablet 0 01-18 00:00: 00 Yes [id number] 50mg Take 1 tablet by mouth in the morning. [facility] atomoxetine 80 mg capsule 0 01-18 00:00: 00 Yes [id number] 80mg Take 1 capsule by mouth in the morning. [facility] ARIPiprazol e 15 mg tablet 2022-0 01-18 00:00: 00 Yes [id number] 15mg Take 1 tablet by mouth in the morning. [facility] lamoTRIgine 25 mg tablet 2022-0 01-18 00:00: 00 Yes [id number] 25mg Take 1 tablet by mouth in the morning. [facility] naltrexone 50 mg tablet 2022-0 01-18 00:00: 00 Yes [id number] 50mg Take 1 tablet by mouth in the morning. [facility] atomoxetine 80 mg capsule 0 01-18 00:00: 00 Yes [id number] 80mg Take 1 capsule by mouth in the morning. [facility] ARIPiprazol e 15 mg tablet 0 01-18 00:00: 00 Yes [id number] 15mg Take 1 tablet by mouth in the morning. [facility] lamoTRIgine 25 mg tablet 0 01-18 00:00: 00 Yes [id number] 25mg Take 1 tablet by mouth in the morning. [facility] naltrexone 50 mg tablet 0 01-18 00:00: 00 Yes [id number] 50mg Take 1 tablet by mouth in the morning. [facility] atomoxetine 80 mg capsule 0 01-18 00:00: 00 Yes [id number] 80mg Take 1 capsule by mouth in the morning. [facility] ARIPiprazol e 15 mg tablet 0 01-18 00:00: 00 Yes [id number] 15mg Take 1 tablet by mouth in the morning. [facility] lamoTRIgine 25 mg tablet 0 01-18 00:00: 00 Yes [id number] 25mg Take 1 tablet by mouth in the morning. [facility] naltrexone 50 mg tablet 0 01-18 00:00: 00 Yes [id number] 50mg Take 1 tablet by mouth in the morning. [facility] atomoxetine 80 mg capsule 0 01-18 00:00: 00 04-18 00:00 :00 No [id number] 80mg Take 1 capsule by mouth in the morning. [facility] ARIPiprazol e 15 mg tablet 0 01-18 00:00: 00 04-18 00:00 :00 No [id number] 15mg Take 1 tablet by mouth in the morning. [facility] lamoTRIgine 25 mg tablet 2022-0 01-18 00:00: 00 04-18 00:00 :00 No [id number] 25mg Take 1 tablet by mouth in the morning. [facility] naltrexone 50 mg tablet 0 7-19 00:00: 00 04-18 00:00 :00 No [id number] 50mg Take 1 tablet by mouth in the morning. [facility] atomoxetine 80 mg capsule 2022-0 7- 00:00: 00 04-18 00:00 :00 No [id number] 80mg Take 1 capsule by mouth in the morning. [facility] ARIPiprazol e 15 mg tablet 0 - 00:00: 00 04-18 00:00 :00 No [id number] 15mg Take 1 tablet by mouth in the morning. [facility] lamoTRIgine 25 mg tablet 0 01-18 00:00: 00 04-18 00:00 :00 No [id number] 25mg Take 1 tablet by mouth in the morning. [facility] naltrexone 50 mg tablet 0 01-18 00:00: 00 04-18 00:00 :00 No [id number] 50mg Take 1 tablet by mouth in the morning. [facility] atomoxetine 80 mg capsule 0 01-18 00:00: 00 04-18 00:00 :00 No [id number] 80mg Take 1 capsule by mouth in the morning. [facility] ARIPiprazol e 15 mg tablet 0 01-18 00:00: 00 04-18 00:00 :00 No [id number] 15mg Take 1 tablet by mouth in the morning. [facility] lamoTRIgine 25 mg tablet 2022-0 7-19 00:00: 00 04-18 00:00 :00 No [id number] 25mg Take 1 tablet by mouth in the morning. [facility] naltrexone 50 mg tablet 2022-0 7-19 00:00: 00 04-18 00:00 :00 No [id number] 50mg Take 1 tablet by mouth in the morning. [facility] atomoxetine 80 mg capsule 2023-0 7-19 00:00: 00 04-18 00:00 :00 No [id number] 80mg Take 1 capsule by mouth in the morning. [facility] ARIPiprazol e 15 mg tablet 0 01-18 00:00: 00 04-18 00:00 :00 No [id number] 15mg Take 1 tablet by mouth in the morning. [facility] lamoTRIgine 25 mg tablet 0 01-18 00:00: 00 04-18 00:00 :00 No [id number] 25mg Take 1 tablet by mouth in the morning. [facility] naltrexone 50 mg tablet 01-18 00:00: 00 04-18 00:00 :00 No [id number] 50mg Take 1 tablet by mouth in the morning. [facility] atomoxetine 80 mg capsule 01-18 00:00: 00 04-18 00:00 :00 No [id number] 80mg Take 1 capsule by mouth in the morning. [facility] ARIPiprazol e 15 mg tablet 01-18 00:00: 00 04-18 00:00 :00 No [id number] 15mg Take 1 tablet by mouth in the morning. [facility] lamoTRIgine 25 mg tablet 01-18 00:00: 00 04-18 00:00 :00 No [id number] 25mg Take 1 tablet by mouth in the morning. [facility] naltrexone 50 mg tablet 0 01-18 00:00: 00 04-18 00:00 :00 No [id number] 50mg Take 1 tablet by mouth in the morning. [facility] ARIPiprazol e 15 mg tablet 0 10-31 00:00: 00 Yes [id number] 15mg Take 1 tablet by mouth in the morning. [facility] lamoTRIgine 25 mg tablet 2022-0 5- 00:00: 00 Yes [id number] 25mg Take 1 tablet by mouth in the morning. [facility] naltrexone 50 mg tablet 20210-31 00:00: 00 Yes [id number] 50mg Take 1 tablet by mouth in the morning. [facility] ARIPiprazol e 15 mg tablet 10-31 00:00: 00 Yes [id number] 15mg Take 1 tablet by mouth in the morning. [facility] lamoTRIgine 25 mg tablet 10-31 00:00: 00 Yes [id number] 25mg Take 1 tablet by mouth in the morning. [facility] naltrexone 50 mg tablet 10-31 00:00: 00 Yes [id number] 50mg Take 1 tablet by mouth in the morning. [facility] ARIPiprazol e 15 mg tablet 10-31 00:00: 00 Yes [id number] 15mg Take 1 tablet by mouth in the morning. [facility] lamoTRIgine 25 mg tablet 10-31 00:00: 00 Yes [id number] 25mg Take 1 tablet by mouth in the morning. [facility] naltrexone 50 mg tablet 10-31 00:00: 00 Yes [id number] 50mg Take 1 tablet by mouth in the morning. [facility] ARIPiprazol e 15 mg tablet 10-31 00:00: 00 Yes [id number] 15mg Take 1 tablet by mouth in the morning. [facility] lamoTRIgine 25 mg tablet 10-31 00:00: 00 Yes [id number] 25mg Take 1 tablet by mouth in the morning. [facility] naltrexone 50 mg tablet 10-31 00:00: 00 Yes [id number] 50mg Take 1 tablet by mouth in the morning. [facility] ARIPiprazol e 15 mg tablet 10-31 00:00: 00 Yes [id number] 15mg Take 1 tablet by mouth in the morning. [facility] lamoTRIgine 25 mg tablet 10-31 00:00: 00 Yes [id number] 25mg Take 1 tablet by mouth in the morning. [facility] naltrexone 50 mg tablet 10-31 00:00: 00 Yes [id number] 50mg Take 1 tablet by mouth in the morning. [facility] ARIPiprazol e 15 mg tablet 10-31 00:00: 00 Yes [id number] 15mg Take 1 tablet by mouth in the morning. [facility] lamoTRIgine 25 mg tablet 10-31 00:00: 00 Yes [id number] 25mg Take 1 tablet by mouth in the morning. [facility] naltrexone 50 mg tablet 10-31 00:00: 00 Yes [id number] 50mg Take 1 tablet by mouth in the morning. [facility] ARIPiprazol e 15 mg tablet 10-31 00:00: 00 Yes [id number] 15mg Take 1 tablet by mouth in the morning. [facility] lamoTRIgine 25 mg tablet 10-31 00:00: 00 Yes [id number] 25mg Take 1 tablet by mouth in the morning. [facility] naltrexone 50 mg tablet 10-31 00:00: 00 Yes [id number] 50mg Take 1 tablet by mouth in the morning. [facility] ARIPiprazol e 15 mg tablet 10-31 00:00: 00 Yes [id number] 15mg Take 1 tablet by mouth in the morning. [facility] lamoTRIgine 25 mg tablet 10-31 00:00: 00 Yes [id number] 25mg Take 1 tablet by mouth in the morning. [facility] naltrexone 50 mg tablet 10-31 00:00: 00 Yes [id number] 50mg Take 1 tablet by mouth in the morning. [facility] ARIPiprazol e 15 mg tablet 0 10-31 00:00: 00 Yes [id number] 15mg Take 1 tablet by mouth in the morning. [facility] lamoTRIgine 25 mg tablet 0 10-31 00:00: 00 Yes [id number] 25mg Take 1 tablet by mouth in the morning. [facility] naltrexone 50 mg tablet 2022-0 10-31 00:00: 00 Yes [id number] 50mg Take 1 tablet by mouth in the morning. [facility] ARIPiprazol e 15 mg tablet 10-31 00:00: 00 Yes [id number] 15mg Take 1 tablet by mouth in the morning. [facility] lamoTRIgine 25 mg tablet 10-31 00:00: 00 Yes [id number] 25mg Take 1 tablet by mouth in the morning. [facility] naltrexone 50 mg tablet 10-31 00:00: 00 Yes [id number] 50mg Take 1 tablet by mouth in the morning. [facility] ARIPiprazol e 15 mg tablet 10-31 00:00: 00 Yes [id number] 15mg Take 1 tablet by mouth in the morning. [facility] lamoTRIgine 25 mg tablet 10-31 00:00: 00 Yes [id number] 25mg Take 1 tablet by mouth in the morning. [facility] naltrexone 50 mg tablet 10-31 00:00: 00 Yes [id number] 50mg Take 1 tablet by mouth in the morning. [facility] ARIPiprazol e 15 mg tablet 10-31 00:00: 00 Yes [id number] 15mg Take 1 tablet by mouth in the morning. [facility] lamoTRIgine 25 mg tablet 10-31 00:00: 00 Yes [id number] 25mg Take 1 tablet by mouth in the morning. [facility] naltrexone 50 mg tablet 10-31 00:00: 00 Yes [id number] 50mg Take 1 tablet by mouth in the morning. [facility] ARIPiprazol e 15 mg tablet 10-31 00:00: 00 Yes [id number] 15mg Take 1 tablet by mouth in the morning. [facility] lamoTRIgine 25 mg tablet 10-31 00:00: 00 Yes [id number] 25mg Take 1 tablet by mouth in the morning. [facility] naltrexone 50 mg tablet 10-31 00:00: 00 Yes [id number] 50mg Take 1 tablet by mouth in the morning. [facility] ARIPiprazol e 15 mg tablet 10-31 00:00: 00 Yes [id number] 15mg Take 1 tablet by mouth in the morning. [facility] lamoTRIgine 25 mg tablet 10-31 00:00: 00 Yes [id number] 25mg Take 1 tablet by mouth in the morning. [facility] naltrexone 50 mg tablet 10-31 00:00: 00 Yes [id number] 50mg Take 1 tablet by mouth in the morning. [facility] ARIPiprazol e 15 mg tablet 10-31 00:00: 00 Yes [id number] 15mg Take 1 tablet by mouth in the morning. [facility] lamoTRIgine 25 mg tablet 10-31 00:00: 00 Yes [id number] 25mg Take 1 tablet by mouth in the morning. [facility] naltrexone 50 mg tablet 10-31 00:00: 00 Yes [id number] 50mg Take 1 tablet by mouth in the morning. [facility] ARIPiprazol e 15 mg tablet 10-31 00:00: 00 Yes [id number] 15mg Take 1 tablet by mouth in the morning. [facility] lamoTRIgine 25 mg tablet 10-31 00:00: 00 Yes [id number] 25mg Take 1 tablet by mouth in the morning. [facility] naltrexone 50 mg tablet 10-31 00:00: 00 Yes [id number] 50mg Take 1 tablet by mouth in the morning. [facility] ARIPiprazol e 15 mg tablet 10-31 00:00: 00 Yes [id number] 15mg Take 1 tablet by mouth in the morning. [facility] lamoTRIgine 25 mg tablet 10-31 00:00: 00 Yes [id number] 25mg Take 1 tablet by mouth in the morning. [facility] naltrexone 50 mg tablet 10-31 00:00: 00 Yes [id number] 50mg Take 1 tablet by mouth in the morning. [facility] ARIPiprazol e 15 mg tablet 10-31 00:00: 00 Yes [id number] 15mg Take 1 tablet by mouth in the morning. [facility] lamoTRIgine 25 mg tablet 10-31 00:00: 00 Yes [id number] 25mg Take 1 tablet by mouth in the morning. [facility] naltrexone 50 mg tablet 10-31 00:00: 00 Yes [id number] 50mg Take 1 tablet by mouth in the morning. [facility] ARIPiprazol e 15 mg tablet 10-31 00:00: 00 Yes [id number] 15mg Take 1 tablet by mouth in the morning. [facility] lamoTRIgine 25 mg tablet 10-31 00:00: 00 Yes [id number] 25mg Take 1 tablet by mouth in the morning. [facility] naltrexone 50 mg tablet 10-31 00:00: 00 Yes [id number] 50mg Take 1 tablet by mouth in the morning. [facility] ARIPiprazol e 15 mg tablet 10-31 00:00: 00 Yes [id number] 15mg Take 1 tablet by mouth in the morning. [facility] lamoTRIgine 25 mg tablet 10-31 00:00: 00 Yes [id number] 25mg Take 1 tablet by mouth in the morning. [facility] naltrexone 50 mg tablet 10-31 00:00: 00 Yes [id number] 50mg Take 1 tablet by mouth in the morning. [facility] ARIPiprazol e 15 mg tablet 10-31 00:00: 00 Yes [id number] 15mg Take 1 tablet by mouth in the morning. [facility] lamoTRIgine 25 mg tablet 0 10-31 00:00: 00 Yes [id number] 25mg Take 1 tablet by mouth in the morning. [facility] naltrexone 50 mg tablet 0 10-31 00:00: 00 Yes [id number] 50mg Take 1 tablet by mouth in the morning. [facility] ARIPiprazol e 15 mg tablet 0 10-31 00:00: 00 Yes [id number] 15mg Take 1 tablet by mouth in the morning. [facility] lamoTRIgine 25 mg tablet 0 10-31 00:00: 00 Yes [id number] 25mg Take 1 tablet by mouth in the morning. [facility] naltrexone 50 mg tablet 0 10-31 00:00: 00 Yes [id number] 50mg Take 1 tablet by mouth in the morning. [facility] ARIPiprazol e 15 mg tablet 0 10-31 00:00: 00 Yes [id number] 15mg Take 1 tablet by mouth in the morning. [facility] lamoTRIgine 25 mg tablet 0 10-31 00:00: 00 Yes [id number] 25mg Take 1 tablet by mouth in the morning. [facility] naltrexone 50 mg tablet 10-31 00:00: 00 Yes [id number] 50mg Take 1 tablet by mouth in the morning. [facility] atomoxetine 80 mg capsule 0 10-31 00:00: 00 01-30 04:59 :00 No [id number] 80mg Take 1 capsule by mouth in the morning for 90 days. [facility] atomoxetine 80 mg capsule 0 10-31 00:00: 00 01-30 04:59 :00 No [id number] 80mg Take 1 capsule by mouth in the morning for 90 days. [facility] atomoxetine 80 mg capsule 2022-0 10-31 00:00: 00 01-30 04:59 :00 No [id number] 80mg Take 1 capsule by mouth in the morning for 90 days. [facility] atomoxetine 80 mg capsule 2022-0 10-31 00:00: 00 01-30 04:59 :00 No [id number] 80mg Take 1 capsule by mouth in the morning for 90 days. [facility] atomoxetine 80 mg capsule 2022-0 10-31 00:00: 00 01-30 04:59 :00 No [id number] 80mg Take 1 capsule by mouth in the morning for 90 days. [facility] atomoxetine 80 mg capsule 3-0 5- 00:00: 00 01-30 04:59 :00 No [id number] 80mg Take 1 capsule by mouth in the morning for 90 days. [facility] atomoxetine 80 mg capsule 3-0 5- 00:00: 00 01-30 04:59 :00 No [id number] 80mg Take 1 capsule by mouth in the morning for 90 days. [facility] 20[facility]-0 5- 00:00: 00 01-30 04:59 :00 No [id number] 80mg Take 1 capsule by mouth in the morning for 90 days. [facility] atom[facility] mg capsule 2022-0 5- 00:00: 00 01-30 04:59 :00 No [id number] 80mg Take 1 capsule by mouth in the morning for 90 days. [facility] atom[facility] mg capsule 2022-0 5- 00:00: 00 01-30 04:59 :00 No [id number] 80mg Take 1 capsule by mouth in the morning for 90 days. [facility] mg capsule 2022-0 5- 00:00: 00 01-30 04:59 :00 No [id number] 80mg Take 1 capsule by mouth in the morning for 90 days. [facility] mg capsule 2022-0 5- 00:00: 00 01-30 04:59 :00 No [id number] 80mg Take 1 capsule by mouth in the morning for 90 days. [facility] atom[facility] 80 mg capsule 3-0 5- 00:00: 00 01-30 04:59 :00 No [id number] 80mg Take 1 capsule by mouth in the morning for 90 days. [facility] atom[facility] 80 mg capsule 3-0 5- 00:00: 00 01-30 04:59 :00 No [id number] 80mg Take 1 capsule by mouth in the morning for 90 days. [facility] atom[facility] 80 mg capsule 3-0 5- 00:00: 00 01-30 04:59 :00 No [id number] 80mg Take 1 capsule by mouth in the morning for 90 days. [facility] atomoxetine 80 mg capsule 3-0 5-01 00:00: 00 01-30 04:59 :00 No [id number] 80mg Take 1 capsule by mouth in the morning for 90 days. [facility] atomoxetine 80 mg capsule 3-0 5- 00:00: 00 01-30 04:59 :00 No [id number] 80mg Take 1 capsule by mouth in the morning for 90 days. [facility] atomoxetine 80 mg capsule 2022-0 5- 00:00: 00 01-30 04:59 :00 No [id number] 80mg Take 1 capsule by mouth in the morning for 90 days. [facility] atomoxetine 80 mg capsule 2022-0 5- 00:00: 00 01-30 04:59 :00 No [id number] 80mg Take 1 capsule by mouth in the morning for 90 days. [facility] atomoxetine 80 mg capsule 3-0 5- 00:00: 00 01-30 04:59 :00 No [id number] 80mg Take 1 capsule by mouth in the morning for 90 days. [facility] atomoxetine 80 mg capsule 2022-0 5- 00:00: 00 01-30 04:59 :00 No [id number] 80mg Take 1 capsule by mouth in the morning for 90 days. [facility] atomoxetine 80 mg capsule 3-0 5- 00:00: 00 01-30 04:59 :00 No [id number] 80mg Take 1 capsule by mouth in the morning for 90 days. [facility] atomoxetine 80 mg capsule 3-0 5-01 00:00: 00 01-30 04:59 :00 No [id number] 80mg Take 1 capsule by mouth in the morning for 90 days. [facility] atomoxetine 80 mg capsule 3-0 5-01 00:00: 00 01-18 00:00 :00 No [id number] 80mg Take 1 capsule by mouth in the morning for 90 days. [facility] ARIPiprazol e 15 mg tablet 2022-0 5- 00:00: 00 01-18 00:00 :00 No [id number] 15mg Take 1 tablet by mouth in the morning. [facility] lamoTRIgine 25 mg tablet 2022-0 5- 00:00: 00 01-18 00:00 :00 No [id number] 25mg Take 1 tablet by mouth in the morning. [facility] naltrexone 50 mg tablet 2022-0 5- 00:00: 00 01-18 00:00 :00 No [id number] 50mg Take 1 tablet by mouth in the morning. [facility] atomoxetine 80 mg capsule 2022-0 5- 00:00: 00 01-18 00:00 :00 No [id number] 80mg Take 1 capsule by mouth in the morning for 90 days. [facility] ARIPiprazol e 15 mg tablet 2022-0 5- 00:00: 00 01-18 00:00 :00 No [id number] 15mg Take 1 tablet by mouth in the morning. [facility] lamoTRIgine 25 mg tablet 0 5- 00:00: 00 01-18 00:00 :00 No [id number] 25mg Take 1 tablet by mouth in the morning. [facility] naltrexone 50 mg tablet 2022-0 5- 00:00: 00 01-18 00:00 :00 No [id number] 50mg Take 1 tablet by mouth in the morning. [facility] atomoxetine 80 mg capsule 2022-0 5- 00:00: 00 01-18 00:00 :00 No [id number] 80mg Take 1 capsule by mouth in the morning for 90 days. [facility] ARIPiprazol e 15 mg tablet 2022-0 5- 00:00: 00 01-18 00:00 :00 No [id number] 15mg Take 1 tablet by mouth in the morning. [facility] lamoTRIgine 25 mg tablet 2022-0 5- 00:00: 00 01-18 00:00 :00 No [id number] 25mg Take 1 tablet by mouth in the morning. [facility] naltrexone 50 mg tablet 10-31 00:00: 00 01-18 00:00 :00 No [id number] 50mg Take 1 tablet by mouth in the morning. [facility] atomoxetine 80 mg capsule 10-31 00:00: 00 01-18 00:00 :00 No [id number] 80mg Take 1 capsule by mouth in the morning for 90 days. [facility] ARIPiprazol e 15 mg tablet 10-31 00:00: 00 01-18 00:00 :00 No [id number] 15mg Take 1 tablet by mouth in the morning. [facility] lamoTRIgine 25 mg tablet 10-31 00:00: 00 01-18 00:00 :00 No [id number] 25mg Take 1 tablet by mouth in the morning. [facility] naltrexone 50 mg tablet 10-31 00:00: 00 01-18 00:00 :00 No [id number] 50mg Take 1 tablet by mouth in the morning. [facility] testosteron e cypionate 200 mg/mL injection 10-27 00:00: 00 Yes INJECT 0.3 ML (60MG) EVERY 1 WEEK, SUBCUTANEO US, 49 DAYS. SAFE FOR SUBCUTANEO US USE [facility] testosteron e cypionate 200 mg/mL injection 10-27 00:00: 00 Yes INJECT 0.3 ML (60MG) EVERY 1 WEEK, SUBCUTANEO US, 49 DAYS. SAFE FOR SUBCUTANEO US USE [facility] testosteron e cypionate 200 mg/mL injection 10-27 00:00: 00 Yes INJECT 0.3 ML (60MG) EVERY 1 WEEK, SUBCUTANEO US, 49 DAYS. SAFE FOR SUBCUTANEO US USE [facility] testosteron e cypionate 200 mg/mL injection 10-27 00:00: 00 Yes INJECT 0.3 ML (60MG) EVERY 1 WEEK, SUBCUTANEO US, 49 DAYS. SAFE FOR SUBCUTANEO US USE [facility] testosteron e cypionate 200 mg/mL injection 10-27 00:00: 00 Yes INJECT 0.3 ML (60MG) EVERY 1 WEEK, SUBCUTANEO US, 49 DAYS. SAFE FOR SUBCUTANEO US USE [facility] testosteron e cypionate 200 mg/mL injection 10-27 00:00: 00 Yes INJECT 0.3 ML (60MG) EVERY 1 WEEK, SUBCUTANEO US, 49 DAYS. SAFE FOR SUBCUTANEO US USE [facility] testosteron e cypionate 200 mg/mL injection 10-27 00:00: 00 Yes INJECT 0.3 ML (60MG) EVERY 1 WEEK, SUBCUTANEO US, 49 DAYS. SAFE FOR SUBCUTANEO US USE [facility] testosteron e cypionate 200 mg/mL injection 10-27 00:00: 00 Yes INJECT 0.3 ML (60MG) EVERY 1 WEEK, SUBCUTANEO US, 49 DAYS. SAFE FOR SUBCUTANEO US USE [facility] testosteron e cypionate 200 mg/mL injection 10-27 00:00: 00 Yes INJECT 0.3 ML (60MG) EVERY 1 WEEK, SUBCUTANEO US, 49 DAYS. SAFE FOR SUBCUTANEO US USE [facility] testosteron e cypionate 200 mg/mL injection 10-27 00:00: 00 Yes INJECT 0.3 ML (60MG) EVERY 1 WEEK, SUBCUTANEO US, 49 DAYS. SAFE FOR SUBCUTANEO US USE [facility] testosteron e cypionate 200 mg/mL injection 10-27 00:00: 00 Yes INJECT 0.3 ML (60MG) EVERY 1 WEEK, SUBCUTANEO US, 49 DAYS. SAFE FOR SUBCUTANEO US USE [facility] testosteron e cypionate 200 mg/mL injection 10-27 00:00: 00 Yes INJECT 0.3 ML (60MG) EVERY 1 WEEK, SUBCUTANEO US, 49 DAYS. SAFE FOR SUBCUTANEO US USE [facility] testosteron e cypionate 200 mg/mL injection 10-27 00:00: 00 Yes INJECT 0.3 ML (60MG) EVERY 1 WEEK, SUBCUTANEO US, 49 DAYS. SAFE FOR SUBCUTANEO US USE [facility] testosteron e cypionate 200 mg/mL injection 10-27 00:00: 00 Yes INJECT 0.3 ML (60MG) EVERY 1 WEEK, SUBCUTANEO US, 49 DAYS. SAFE FOR SUBCUTANEO US USE [facility] testosteron e cypionate 200 mg/mL injection 10-27 00:00: 00 Yes INJECT 0.3 ML (60MG) EVERY 1 WEEK, SUBCUTANEO US, 49 DAYS. SAFE FOR SUBCUTANEO US USE [facility] testosteron e cypionate 200 mg/mL injection 10-27 00:00: 00 Yes INJECT 0.3 ML (60MG) EVERY 1 WEEK, SUBCUTANEO US, 49 DAYS. SAFE FOR SUBCUTANEO US USE [facility] testosteron e cypionate 200 mg/mL injection 10-27 00:00: 00 Yes INJECT 0.3 ML (60MG) EVERY 1 WEEK, SUBCUTANEO US, 49 DAYS. SAFE FOR SUBCUTANEO US USE [facility] testosteron e cypionate 200 mg/mL injection 10-27 00:00: 00 Yes INJECT 0.3 ML (60MG) EVERY 1 WEEK, SUBCUTANEO US, 49 DAYS. SAFE FOR SUBCUTANEO US USE [facility] testosteron e cypionate 200 mg/mL injection 10-27 00:00: 00 Yes INJECT 0.3 ML (60MG) EVERY 1 WEEK, SUBCUTANEO US, 49 DAYS. SAFE FOR SUBCUTANEO US USE [facility] testosteron e cypionate 200 mg/mL injection 10-27 00:00: 00 Yes INJECT 0.3 ML (60MG) EVERY 1 WEEK, SUBCUTANEO US, 49 DAYS. SAFE FOR SUBCUTANEO US USE [facility] testosteron e cypionate 200 mg/mL injection 10-27 00:00: 00 Yes INJECT 0.3 ML (60MG) EVERY 1 WEEK, SUBCUTANEO US, 49 DAYS. SAFE FOR SUBCUTANEO US USE [facility] testosteron e cypionate 200 mg/mL injection 10-27 00:00: 00 Yes INJECT 0.3 ML (60MG) EVERY 1 WEEK, SUBCUTANEO US, 49 DAYS. SAFE FOR SUBCUTANEO US USE [facility] testosteron e cypionate 200 mg/mL injection 10-27 00:00: 00 Yes INJECT 0.3 ML (60MG) EVERY 1 WEEK, SUBCUTANEO US, 49 DAYS. SAFE FOR SUBCUTANEO US USE [facility] testosteron e cypionate 200 mg/mL injection 10-27 00:00: 00 Yes INJECT 0.3 ML (60MG) EVERY 1 WEEK, SUBCUTANEO US, 49 DAYS. SAFE FOR SUBCUTANEO US USE [facility] testosteron e cypionate 200 mg/mL injection 10-27 00:00: 00 Yes INJECT 0.3 ML (60MG) EVERY 1 WEEK, SUBCUTANEO US, 49 DAYS. SAFE FOR SUBCUTANEO US USE [facility] testosteron e cypionate 200 mg/mL injection 10-27 00:00: 00 Yes INJECT 0.3 ML (60MG) EVERY 1 WEEK, SUBCUTANEO US, 49 DAYS. SAFE FOR SUBCUTANEO US USE [facility] testosteron e cypionate 200 mg/mL injection 10-27 00:00: 00 Yes INJECT 0.3 ML (60MG) EVERY 1 WEEK, SUBCUTANEO US, 49 DAYS. SAFE FOR SUBCUTANEO US USE [facility] testosteron e cypionate 200 mg/mL injection 10-27 00:00: 00 Yes INJECT 0.3 ML (60MG) EVERY 1 WEEK, SUBCUTANEO US, 49 DAYS. SAFE FOR SUBCUTANEO US USE [facility] testosteron e cypionate 200 mg/mL injection 10-27 00:00: 00 Yes INJECT 0.3 ML (60MG) EVERY 1 WEEK, SUBCUTANEO US, 49 DAYS. SAFE FOR SUBCUTANEO US USE [facility] testosteron e cypionate 200 mg/mL injection 10-27 00:00: 00 Yes INJECT 0.3 ML (60MG) EVERY 1 WEEK, SUBCUTANEO US, 49 DAYS. SAFE FOR SUBCUTANEO US USE [facility] testosteron e cypionate 200 mg/mL injection 10-27 00:00: 00 Yes INJECT 0.3 ML (60MG) EVERY 1 WEEK, SUBCUTANEO US, 49 DAYS. SAFE FOR SUBCUTANEO US USE [facility] testosteron e cypionate 200 mg/mL injection 10-27 00:00: 00 Yes INJECT 0.3 ML (60MG) EVERY 1 WEEK, SUBCUTANEO US, 49 DAYS. SAFE FOR SUBCUTANEO US USE [facility] testosteron e cypionate 200 mg/mL injection 10-27 00:00: 00 Yes INJECT 0.3 ML (60MG) EVERY 1 WEEK, SUBCUTANEO US, 49 DAYS. SAFE FOR SUBCUTANEO US USE [facility] testosteron e cypionate 200 mg/mL injection 10-27 00:00: 00 Yes INJECT 0.3 ML (60MG) EVERY 1 WEEK, SUBCUTANEO US, 49 DAYS. SAFE FOR SUBCUTANEO US USE [facility] testosteron e cypionate 200 mg/mL injection 10-27 00:00: 00 Yes INJECT 0.3 ML (60MG) EVERY 1 WEEK, SUBCUTANEO US, 49 DAYS. SAFE FOR SUBCUTANEO US USE [facility] testosteron e cypionate 200 mg/mL injection 10-27 00:00: 00 Yes INJECT 0.3 ML (60MG) EVERY 1 WEEK, SUBCUTANEO US, 49 DAYS. SAFE FOR SUBCUTANEO US USE [facility] testosteron e cypionate 200 mg/mL injection 10-27 00:00: 00 Yes INJECT 0.3 ML (60MG) EVERY 1 WEEK, SUBCUTANEO US, 49 DAYS. SAFE FOR SUBCUTANEO US USE [facility] testosteron e cypionate 200 mg/mL injection 10-27 00:00: 00 Yes INJECT 0.3 ML (60MG) EVERY 1 WEEK, SUBCUTANEO US, 49 DAYS. SAFE FOR SUBCUTANEO US USE [facility] testosteron e cypionate 200 mg/mL injection 10-27 00:00: 00 Yes INJECT 0.3 ML (60MG) EVERY 1 WEEK, SUBCUTANEO US, 49 DAYS. SAFE FOR SUBCUTANEO US USE [facility] testosteron e cypionate 200 mg/mL injection 10-27 00:00: 00 Yes INJECT 0.3 ML (60MG) EVERY 1 WEEK, SUBCUTANEO US, 49 DAYS. SAFE FOR SUBCUTANEO US USE [facility] testosteron e cypionate 200 mg/mL injection 10-27 00:00: 00 Yes INJECT 0.3 ML (60MG) EVERY 1 WEEK, SUBCUTANEO US, 49 DAYS. SAFE FOR SUBCUTANEO US USE [facility] testosteron e cypionate 200 mg/mL injection 10-27 00:00: 00 Yes INJECT 0.3 ML (60MG) EVERY 1 WEEK, SUBCUTANEO US, 49 DAYS. SAFE FOR SUBCUTANEO US USE [facility] testosteron e cypionate 200 mg/mL injection 10-27 00:00: 00 Yes INJECT 0.3 ML (60MG) EVERY 1 WEEK, SUBCUTANEO US, 49 DAYS. SAFE FOR SUBCUTANEO US USE [facility] testosteron e cypionate 200 mg/mL injection 10-27 00:00: 00 Yes INJECT 0.3 ML (60MG) EVERY 1 WEEK, SUBCUTANEO US, 49 DAYS. SAFE FOR SUBCUTANEO US USE [facility] testosteron e cypionate 200 mg/mL injection 10-27 00:00: 00 Yes INJECT 0.3 ML (60MG) EVERY 1 WEEK, SUBCUTANEO US, 49 DAYS. SAFE FOR SUBCUTANEO US USE [facility] testosteron e cypionate 200 mg/mL injection 10-27 00:00: 00 Yes INJECT 0.3 ML (60MG) EVERY 1 WEEK, SUBCUTANEO US, 49 DAYS. SAFE FOR SUBCUTANEO US USE [facility] testosteron e cypionate 200 mg/mL injection 10-27 00:00: 00 Yes INJECT 0.3 ML (60MG) EVERY 1 WEEK, SUBCUTANEO US, 49 DAYS. SAFE FOR SUBCUTANEO US USE [facility] testosteron e cypionate 200 mg/mL injection 10-27 00:00: 00 Yes INJECT 0.3 ML (60MG) EVERY 1 WEEK, SUBCUTANEO US, 49 DAYS. SAFE FOR SUBCUTANEO US USE [facility] testosteron e cypionate 200 mg/mL injection 10-27 00:00: 00 Yes INJECT 0.3 ML (60MG) EVERY 1 WEEK, SUBCUTANEO US, 49 DAYS. SAFE FOR SUBCUTANEO US USE [facility] testosteron e cypionate 200 mg/mL injection 10-27 00:00: 00 06-20 00:00 :00 No INJECT 0.3 ML (60MG) EVERY 1 WEEK, SUBCUTANEO US, 49 DAYS. SAFE FOR SUBCUTANEO US USE [facility] testosteron e cypionate 200 mg/mL injection 10-27 00:00: 00 06-20 00:00 :00 No INJECT 0.3 ML (60MG) EVERY 1 WEEK, SUBCUTANEO US, 49 DAYS. SAFE FOR SUBCUTANEO US USE [facility] testosteron e cypionate 200 mg/mL injection 10-27 00:00: 00 06-20 00:00 :00 No INJECT 0.3 ML (60MG) EVERY 1 WEEK, SUBCUTANEO US, 49 DAYS. SAFE FOR SUBCUTANEO US USE [facility] testosteron e cypionate 200 mg/mL injection 3-0 4-27 00:00: 00 12 00:00 :00 No INJECT 0.3 ML (60MG) EVERY 1 WEEK, SUBCUTANEO US, 49 DAYS. SAFE FOR SUBCUTANEO US USE [facility] atomoxetine 80 mg capsule 3-0 4-18 00:00: 00 Yes [id number] 80mg Take 1 capsule by mouth in the morning. [facility] atomoxetine 80 mg capsule 3-0 4-18 00:00: 00 Yes [id number] 80mg Take 1 capsule by mouth in the morning. [facility] atomoxetine 80 mg capsule 3-0 4-18 00:00: 00 10-31 00:00 :00 No [id number] 80mg Take 1 capsule by mouth in the morning. [facility] atomoxetine 80 mg capsule 3-0 4-18 00:00: 00 10-31 00:00 :00 No [id number] 80mg Take 1 capsule by mouth in the morning. [facility] atomoxetine 80 mg capsule 3-0 4-18 00:00: 00 10-31 00:00 :00 No [id number] 80mg Take 1 capsule by mouth in the morning. [facility] atomoxetine 80 mg capsule 3-0 4-18 00:00: 00 10-31 00:00 :00 No [id number] 80mg Take 1 capsule by mouth in the morning. [facility] atomoxetine 80 mg capsule 3-0 4-18 00:00: 00 10-31 00:00 :00 No [id number] 80mg Take 1 capsule by mouth in the morning. [facility] atomoxetine 80 mg capsule 3-0 4-18 00:00: 00 10-31 00:00 :00 No [id number] 80mg Take 1 capsule by mouth in the morning. [facility] atomoxetine 80 mg capsule 3-0 4-18 00:00: 00 10-31 00:00 :00 No [id number] 80mg Take 1 capsule by mouth in the morning. [facility] atomoxetine 80 mg capsule 3-0 4-18 00:00: 00 10-31 00:00 :00 No [id number] 80mg Take 1 capsule by mouth in the morning. [facility] atomoxetine 80 mg capsule 3-0 4-18 00:00: 00 10-31 00:00 :00 No [id number] 80mg Take 1 capsule by mouth in the morning. [facility] atomoxetine 80 mg capsule 3-0 4-18 00:00: 00 10-31 00:00 :00 No [id number] 80mg Take 1 capsule by mouth in the morning. [facility] atomoxetine 80 mg capsule 3-0 4-18 00:00: 00 10-31 00:00 :00 No [id number] 80mg Take 1 capsule by mouth in the morning. [facility] ARIPiprazol e 15 mg tablet 3-0 2-20 00:00: 00 Yes [id number] 15mg Take 1 tablet by mouth in the morning. [facility] lamoTRIgine 25 mg tablet 3-0 2-20 00:00: 00 Yes [id number] 25mg Take 1 tablet by mouth in the morning. [facility] ARIPiprazol e 15 mg tablet 3-0 2-20 00:00: 00 Yes [id number] 15mg Take 1 tablet by mouth in the morning. [facility] lamoTRIgine 25 mg tablet 3-0 2-20 00:00: 00 Yes [id number] 25mg Take 1 tablet by mouth in the morning. [facility] ARIPiprazol e 15 mg tablet 3-0 2-20 00:00: 00 Yes [id number] 15mg Take 1 tablet by mouth in the morning. [facility] lamoTRIgine 25 mg tablet 3-0 2-20 00:00: 00 Yes [id number] 25mg Take 1 tablet by mouth in the morning. [facility] ARIPiprazol e 15 mg tablet 3-0 2-20 00:00: 00 Yes [id number] 15mg Take 1 tablet by mouth in the morning. [facility] lamoTRIgine 25 mg tablet 3-0 2-20 00:00: 00 Yes [id number] 25mg Take 1 tablet by mouth in the morning. [facility] ARIPiprazol e 15 mg tablet 3-0 2-20 00:00: 00 Yes [id number] 15mg Take 1 tablet by mouth in the morning. [facility] lamoTRIgine 25 mg tablet 3-0 2-20 00:00: 00 Yes [id number] 25mg Take 1 tablet by mouth in the morning. [facility] ARIPiprazol e 15 mg tablet 3-0 2-20 00:00: 00 Yes [id number] 15mg Take 1 tablet by mouth in the morning. [facility] lamoTRIgine 25 mg tablet 3-0 2-20 00:00: 00 Yes [id number] 25mg Take 1 tablet by mouth in the morning. [facility] ARIPiprazol e 15 mg tablet 3-0 2-20 00:00: 00 Yes [id number] 15mg Take 1 tablet by mouth in the morning. [facility] lamoTRIgine 25 mg tablet 3-0 2-20 00:00: 00 Yes [id number] 25mg Take 1 tablet by mouth in the morning. [facility] ARIPiprazol e 15 mg tablet 3-0 2-20 00:00: 00 Yes [id number] 15mg Take 1 tablet by mouth in the morning. [facility] lamoTRIgine 25 mg tablet 3-0 2-20 00:00: 00 Yes [id number] 25mg Take 1 tablet by mouth in the morning. [facility] ARIPiprazol e 15 mg tablet 3-0 2-20 00:00: 00 Yes [id number] 15mg Take 1 tablet by mouth in the morning. [facility] lamoTRIgine 25 mg tablet 3-0 2-20 00:00: 00 Yes [id number] 25mg Take 1 tablet by mouth in the morning. [facility] ARIPiprazol e 15 mg tablet 3-0 2-20 00:00: 00 Yes [id number] 15mg Take 1 tablet by mouth in the morning. [facility] lamoTRIgine 25 mg tablet 3-0 2-20 00:00: 00 Yes [id number] 25mg Take 1 tablet by mouth in the morning. [facility] ARIPiprazol e 15 mg tablet 3-0 2-20 00:00: 00 Yes [id number] 15mg Take 1 tablet by mouth in the morning. [facility] lamoTRIgine 25 mg tablet 3-0 2-20 00:00: 00 Yes [id number] 25mg Take 1 tablet by mouth in the morning. [facility] ARIPiprazol e 15 mg tablet 3-0 2-20 00:00: 00 Yes [id number] 15mg Take 1 tablet by mouth in the morning. [facility] lamoTRIgine 25 mg tablet 3-0 2-20 00:00: 00 Yes [id number] 25mg Take 1 tablet by mouth in the morning. [facility] ARIPiprazol e 15 mg tablet 3-0 2-20 00:00: 00 Yes [id number] 15mg Take 1 tablet by mouth in the morning. [facility] lamoTRIgine 25 mg tablet 3-0 2-20 00:00: 00 Yes [id number] 25mg Take 1 tablet by mouth in the morning. [facility] ARIPiprazol e 15 mg tablet 3-0 2-20 00:00: 00 Yes [id number] 15mg Take 1 tablet by mouth in the morning. [facility] lamoTRIgine 25 mg tablet 3-0 2-20 00:00: 00 Yes [id number] 25mg Take 1 tablet by mouth in the morning. [facility] ARIPiprazol e 15 mg tablet 3-0 2-20 00:00: 00 Yes [id number] 15mg Take 1 tablet by mouth in the morning. [facility] lamoTRIgine 25 mg tablet 3-0 2-20 00:00: 00 Yes [id number] 25mg Take 1 tablet by mouth in the morning. [facility] naltrexone 50 mg tablet 3-0 2-20 00:00: 00 11-21 04:59 :00 No [id number] 50mg Take 1 tablet by mouth in the morning for 90 days. [place] [facility]-0 2-20 00:00: 00 11-21 04:59 :00 No [id number] 50mg Take 1 tablet by mouth in the morning for 90 days. [facility] mg tablet 3-0 2-20 00:00: 00 11-21 04:59 :00 No [id number] 50mg Take 1 tablet by mouth in the morning for 90 days. [facility] naltrexone 50 mg tablet 3-0 2-20 00:00: 00 11-21 04:59 :00 No [id number] 50mg Take 1 tablet by mouth in the morning for 90 days. [facility] naltrexone 50 mg tablet 3-0 2-20 00:00: 00 11-21 04:59 :00 No [id number] 50mg Take 1 tablet by mouth in the morning for 90 days. [facility] naltrexone 50 mg tablet 3-0 2-20 00:00: 00 11-21 04:59 :00 No [id number] 50mg Take 1 tablet by mouth in the morning for 90 days. [facility] naltrexone 50 mg tablet 3-0 2-20 00:00: 00 11-21 04:59 :00 No [id number] 50mg Take 1 tablet by mouth in the morning for 90 days. [facility] naltrexone 50 mg tablet 3-0 2-20 00:00: 00 11-21 04:59 :00 No [id number] 50mg Take 1 tablet by mouth in the morning for 90 days. [facility] naltrexone 50 mg tablet 3-0 2-20 00:00: 00 11-21 04:59 :00 No [id number] 50mg Take 1 tablet by mouth in the morning for 90 days. [facility] naltrexone 50 mg tablet 3-0 2-20 00:00: 00 11-21 04:59 :00 No [id number] 50mg Take 1 tablet by mouth in the morning for 90 days. [facility] naltrexone 50 mg tablet 3-0 2-20 00:00: 00 11-21 04:59 :00 No [id number] 50mg Take 1 tablet by mouth in the morning for 90 days. [facility] naltrexone 50 mg tablet 3-0 2-20 00:00: 00 11-21 04:59 :00 No [id number] 50mg Take 1 tablet by mouth in the morning for 90 days. [facility] naltrexone 50 mg tablet 2022-0 2-20 00:00: 00 11-21 04:59 :00 No [id number] 50mg Take 1 tablet by mouth in the morning for 90 days. [facility] naltrexone 50 mg tablet 3-0 2-20 00:00: 00 11-21 04:59 :00 No [id number] 50mg Take 1 tablet by mouth in the morning for 90 days. [facility] naltrexone 50 mg tablet 2022-0 2-20 00:00: 00 11-21 04:59 :00 No [id number] 50mg Take 1 tablet by mouth in the morning for 90 days. [facility] ARIPiprazol e 15 mg tablet 2022-0 2-20 00:00: 00 10-31 00:00 :00 No [id number] 15mg Take 1 tablet by mouth in the morning. [facility] lamoTRIgine 25 mg tablet 3-0 2-20 00:00: 00 10-31 00:00 :00 No [id number] 25mg Take 1 tablet by mouth in the morning. [facility] naltrexone 50 mg tablet 3-0 2-20 00:00: 00 10-31 00:00 :00 No [id number] 50mg Take 1 tablet by mouth in the morning for 90 days. [facility] ARIPiprazol e 15 mg tablet 3-0 2-20 00:00: 00 10-31 00:00 :00 No [id number] 15mg Take 1 tablet by mouth in the morning. [facility] lamoTRIgine 25 mg tablet 3-0 2-20 00:00: 00 10-31 00:00 :00 No [id number] 25mg Take 1 tablet by mouth in the morning. [facility] naltrexone 50 mg tablet 2022-0 2-20 00:00: 00 10-31 00:00 :00 No [id number] 50mg Take 1 tablet by mouth in the morning for 90 days. [facility] ARIPiprazol e 15 mg tablet 3-0 2-20 00:00: 00 10-31 00:00 :00 No [id number] 15mg Take 1 tablet by mouth in the morning. [facility] lamoTRIgine 25 mg tablet 2022-0 2-20 00:00: 00 10-31 00:00 :00 No [id number] 25mg Take 1 tablet by mouth in the morning. [facility] naltrexone 50 mg tablet 2022-0 2-20 00:00: 00 10-31 00:00 :00 No [id number] 50mg Take 1 tablet by mouth in the morning for 90 days. [facility] ARIPiprazol e 15 mg tablet 2022-0 2-20 00:00: 00 10-31 00:00 :00 No [id number] 15mg Take 1 tablet by mouth in the morning. [facility] lamoTRIgine 25 mg tablet 2022-0 2-20 00:00: 00 10-31 00:00 :00 No [id number] 25mg Take 1 tablet by mouth in the morning. [facility] naltrexone 50 mg tablet 2022-0 2-20 00:00: 00 10-31 00:00 :00 No [id number] 50mg Take 1 tablet by mouth in the morning for 90 days. [facility] ARIPiprazol e 15 mg tablet 3-0 2-20 00:00: 00 10-31 00:00 :00 No [id number] 15mg Take 1 tablet by mouth in the morning. [facility] lamoTRIgine 25 mg tablet 3-0 2-20 00:00: 00 10-31 00:00 :00 No [id number] 25mg Take 1 tablet by mouth in the morning. [facility] naltrexone 50 mg tablet 3-0 2-20 00:00: 00 10-31 00:00 :00 No [id number] 50mg Take 1 tablet by mouth in the morning for 90 days. [facility] ARIPiprazol e 15 mg tablet 3-0 2-20 00:00: 00 10-31 00:00 :00 No [id number] 15mg Take 1 tablet by mouth in the morning. [facility] lamoTRIgine 25 mg tablet 3-0 2-20 00:00: 00 10-31 00:00 :00 No [id number] 25mg Take 1 tablet by mouth in the morning. [facility] naltrexone 50 mg tablet 3-0 2-20 00:00: 00 10-31 00:00 :00 No [id number] 50mg Take 1 tablet by mouth in the morning for 90 days. [facility] ARIPiprazol e 15 mg tablet 2022-0 2-20 00:00: 00 10-31 00:00 :00 No [id number] 15mg Take 1 tablet by mouth in the morning. [facility] lamoTRIgine 25 mg tablet 3-0 2-20 00:00: 00 10-31 00:00 :00 No [id number] 25mg Take 1 tablet by mouth in the morning. [facility] naltrexone 50 mg tablet 3-0 2-20 00:00: 00 10-31 00:00 :00 No [id number] 50mg Take 1 tablet by mouth in the morning for 90 days. [facility] ARIPiprazol e 15 mg tablet 3-0 2-20 00:00: 00 10-31 00:00 :00 No [id number] 15mg Take 1 tablet by mouth in the morning. [facility] lamoTRIgine 25 mg tablet 3-0 2-20 00:00: 00 10-31 00:00 :00 No [id number] 25mg Take 1 tablet by mouth in the morning. [facility] naltrexone 50 mg tablet 3-0 2-20 00:00: 00 10-31 00:00 :00 No [id number] 50mg Take 1 tablet by mouth in the morning for 90 days. [facility] ARIPiprazol e 15 mg tablet 3-0 2-20 00:00: 00 10-31 00:00 :00 No [id number] 15mg Take 1 tablet by mouth in the morning. [facility] lamoTRIgine 25 mg tablet 3-0 2-20 00:00: 00 10-31 00:00 :00 No [id number] 25mg Take 1 tablet by mouth in the morning. [facility] naltrexone 50 mg tablet 3-0 2-20 00:00: 00 10-31 00:00 :00 No [id number] 50mg Take 1 tablet by mouth in the morning for 90 days. [facility] ARIPiprazol e 15 mg tablet 3-0 2-20 00:00: 00 10-31 00:00 :00 No [id number] 15mg Take 1 tablet by mouth in the morning. [facility] lamoTRIgine 25 mg tablet 3-0 2-20 00:00: 00 10-31 00:00 :00 No [id number] 25mg Take 1 tablet by mouth in the morning. [facility] naltrexone 50 mg tablet 3-0 2-20 00:00: 00 10-31 00:00 :00 No [id number] 50mg Take 1 tablet by mouth in the morning for 90 days. [facility] ARIPiprazol e 15 mg tablet 3-0 2-20 00:00: 00 10-31 00:00 :00 No [id number] 15mg Take 1 tablet by mouth in the morning. [facility] lamoTRIgine 25 mg tablet 3-0 2-20 00:00: 00 10-31 00:00 :00 No [id number] 25mg Take 1 tablet by mouth in the morning. [facility] naltrexone 50 mg tablet 3-0 2-20 00:00: 00 10-31 00:00 :00 No [id number] 50mg Take 1 tablet by mouth in the morning for 90 days. [facility] atomoxetine 80 mg capsule 2023-0 2-20 00:00: 00 10-22 04:59 :00 No [id number] 80mg Take 1 capsule by mouth in the morning for 60 days. [facility] atomoxetine 80 mg capsule 3-0 2-20 00:00: 00 10-22 04:59 :00 No [id number] 80mg Take 1 capsule by mouth in the morning for 60 days. [facility] atomoxetine 80 mg capsule 3-0 2-20 00:00: 00 10-22 04:59 :00 No [id number] 80mg Take 1 capsule by mouth in the morning for 60 days. [facility] atomoxetine 80 mg capsule 3-0 2-20 00:00: 00 10-22 04:59 :00 No [id number] 80mg Take 1 capsule by mouth in the morning for 60 days. [facility] atomoxetine 80 mg capsule 3-0 2-20 00:00: 00 10-22 04:59 :00 No [id number] 80mg Take 1 capsule by mouth in the morning for 60 days. [facility] atomoxetine 80 mg capsule 3-0 2-20 00:00: 00 10-22 04:59 :00 No [id number] 80mg Take 1 capsule by mouth in the morning for 60 days. [facility] atomox[facility] 80 mg capsule 3-0 2-20 00:00: 00 10-22 04:59 :00 No [id number] 80mg Take 1 capsule by mouth in the morning for 60 days. [facility] atomoxetine 80 mg capsule 3-0 2-20 00:00: 00 10-22 04:59 :00 No [id number] 80mg Take 1 capsule by mouth in the morning for 60 days. [facility] atomoxetine 80 mg capsule 3-0 2-20 00:00: 00 10-22 04:59 :00 No [id number] 80mg Take 1 capsule by mouth in the morning for 60 days. [facility] atomoxetine 80 mg capsule 2023-0 2-20 00:00: 00 10-22 04:59 :00 No [id number] 80mg Take 1 capsule by mouth in the morning for 60 days. [facility] atomoxetine 80 mg capsule 3-0 2-20 00:00: 00 10-22 04:59 :00 No [id number] 80mg Take 1 capsule by mouth in the morning for 60 days. [facility] atomoxetine 80 mg capsule 3-0 2-20 00:00: 00 10-22 04:59 :00 No [id number] 80mg Take 1 capsule by mouth in the morning for 60 days. [facility] atomoxetine 80 mg capsule 3-0 2-20 00:00: 00 10-18 00:00 :00 No [id number] 80mg Take 1 capsule by mouth in the morning for 60 days. [facility] atomoxetine 80 mg capsule 3-0 2-20 00:00: 00 10-18 00:00 :00 No [id number] 80mg Take 1 capsule by mouth in the morning for 60 days. [facility] atomoxetine 80 mg capsule 3-0 2-20 00:00: 00 10-18 00:00 :00 No [id number] 80mg Take 1 capsule by mouth in the morning for 60 days. [facility] atomoxetine 80 mg capsule 3-0 2-20 00:00: 00 10-18 00:00 :00 No [id number] 80mg Take 1 capsule by mouth in the morning for 60 days. [facility] atomoxetine 80 mg capsule 3-0 2-20 00:00: 00 10-18 00:00 :00 No [id number] 80mg Take 1 capsule by mouth in the morning for 60 days. [facility] atomoxetine 80 mg capsule 3-0 2-20 00:00: 00 10-18 00:00 :00 No [id number] 80mg Take 1 capsule by mouth in the morning for 60 days. [facility] atomoxetine 80 mg capsule 3-0 2-20 00:00: 00 10-18 00:00 :00 No [id number] 80mg Take 1 capsule by mouth in the morning for 60 days. [facility] atomoxetine 80 mg capsule 3-0 2-20 00:00: 00 10-18 00:00 :00 No [id number] 80mg Take 1 capsule by mouth in the morning for 60 days. [facility] atomoxetine 80 mg capsule 3-0 2-20 00:00: 00 10-18 00:00 :00 No [id number] 80mg Take 1 capsule by mouth in the morning for 60 days. [facility] atomoxetine 80 mg capsule 3-0 2-20 00:00: 00 10-18 00:00 :00 No [id number] 80mg Take 1 capsule by mouth in the morning for 60 days. [facility] atomoxetine 80 mg capsule 3-0 2-20 00:00: 00 10-18 00:00 :00 No [id number] 80mg Take 1 capsule by mouth in the morning for 60 days. [facility] atomoxetine 80 mg capsule 3-0 2-20 00:00: 00 10-18 00:00 :00 No [id number] 80mg Take 1 capsule by mouth in the morning for 60 days. [facility] hydrOXYzine 25 mg tablet 2022-0 1-23 00:00: 00 Yes [id number] 25mg Take 1 tablet by mouth every 6 (six) hours as needed for Anxiety. [facility] hydrOXYzine 25 mg tablet 3-0 1-23 00:00: 00 Yes [id number] 25mg Take 1 tablet by mouth every 6 (six) hours as needed for Anxiety. [facility] hydrOXYzine 25 mg tablet 3-0 1-23 00:00: 00 Yes [id number] 25mg Take 1 tablet by mouth every 6 (six) hours as needed for Anxiety. [facility] hydrOXYzine 25 mg tablet 3-0 1-23 00:00: 00 Yes [id number] 25mg Take 1 tablet by mouth every 6 (six) hours as needed for Anxiety. [facility] hydrOXYzine 25 mg tablet 3-0 1-23 00:00: 00 Yes [id number] 25mg Take 1 tablet by mouth every 6 (six) hours as needed for Anxiety. [facility] hydrOXYzine 25 mg tablet 3-0 23 00:00: 00 Yes [id number] 25mg Take 1 tablet by mouth every 6 (six) hours as needed for Anxiety. [facility] hydrOXYzine 25 mg tablet 3-0 23 00:00: 00 Yes [id number] 25mg Take 1 tablet by mouth every 6 (six) hours as needed for Anxiety. [facility] hydrOXYzine 25 mg tablet 3-0 23 00:00: 00 Yes [id number] 25mg Take 1 tablet by mouth every 6 (six) hours as needed for Anxiety. [facility] hydrOXYzine 25 mg tablet 3-0 23 00:00: 00 Yes [id number] 25mg Take 1 tablet by mouth every 6 (six) hours as needed for Anxiety. [facility] hydrOXYzine 25 mg tablet 3-0 23 00:00: 00 Yes [id number] 25mg Take 1 tablet by mouth every 6 (six) hours as needed for Anxiety. [facility] hydrOXYzine 25 mg tablet 3-0 23 00:00: 00 Yes [id number] 25mg Take 1 tablet by mouth every 6 (six) hours as needed for Anxiety. [facility] hydrOXYzine 25 mg tablet 3-0 23 00:00: 00 Yes [id number] 25mg Take 1 tablet by mouth every 6 (six) hours as needed for Anxiety. [facility] hydrOXYzine 25 mg tablet 3-0 23 00:00: 00 Yes [id number] 25mg Take 1 tablet by mouth every 6 (six) hours as needed for Anxiety. [facility] hydrOXYzine 25 mg tablet 3-0 23 00:00: 00 Yes [id number] 25mg Take 1 tablet by mouth every 6 (six) hours as needed for Anxiety. [facility] hydrOXYzine 25 mg tablet 3-0 -23 00:00: 00 Yes [id number] 25mg Take 1 tablet by mouth every 6 (six) hours as needed for Anxiety. [facility] hydrOXYzine 25 mg tablet 2023-0 -23 00:00: 00 Yes [id number] 25mg Take 1 tablet by mouth every 6 (six) hours as needed for Anxiety. [facility] hydrOXYzine 25 mg tablet 2023-0 -23 00:00: 00 Yes [id number] 25mg Take 1 tablet by mouth every 6 (six) hours as needed for Anxiety. [facility] hydrOXYzine 25 mg tablet 2023-0 -23 00:00: 00 Yes [id number] 25mg Take 1 tablet by mouth every 6 (six) hours as needed for Anxiety. [facility] hydrOXYzine 25 mg tablet 2023-0 -23 00:00: 00 Yes [id number] 25mg Take 1 tablet by mouth every 6 (six) hours as needed for Anxiety. [facility] hydrOXYzine 25 mg tablet 2023-0 -23 00:00: 00 Yes [id number] 25mg Take 1 tablet by mouth every 6 (six) hours as needed for Anxiety. [facility] hydrOXYzine 25 mg tablet 3-0 -23 00:00: 00 Yes [id number] 25mg Take 1 tablet by mouth every 6 (six) hours as needed for Anxiety. [facility] hydrOXYzine 25 mg tablet 3-0 -23 00:00: 00 Yes [id number] 25mg Take 1 tablet by mouth every 6 (six) hours as needed for Anxiety. [facility] hydrOXYzine 25 mg tablet 2023-0 -23 00:00: 00 Yes [id number] 25mg Take 1 tablet by mouth every 6 (six) hours as needed for Anxiety. [facility] hydrOXYzine 25 mg tablet 2023-0 -23 00:00: 00 Yes [id number] 25mg Take 1 tablet by mouth every 6 (six) hours as needed for Anxiety. [facility] hydrOXYzine 25 mg tablet 2023-0 -23 00:00: 00 Yes [id number] 25mg Take 1 tablet by mouth every 6 (six) hours as needed for Anxiety. [facility] hydrOXYzine 25 mg tablet 2023-0 -23 00:00: 00 Yes [id number] 25mg Take 1 tablet by mouth every 6 (six) hours as needed for Anxiety. [facility] hydrOXYzine 25 mg tablet 2023-0 1-23 00:00: 00 Yes [id number] 25mg Take 1 tablet by mouth every 6 (six) hours as needed for Anxiety. [facility] hydrOXYzine 25 mg tablet 2023-0 1-23 00:00: 00 Yes [id number] 25mg Take 1 tablet by mouth every 6 (six) hours as needed for Anxiety. [facility] hydrOXYzine 25 mg tablet 3-0 -23 00:00: 00 Yes [id number] 25mg Take 1 tablet by mouth every 6 (six) hours as needed for Anxiety. [facility] hydrOXYzine 25 mg tablet 3-0 -23 00:00: 00 Yes [id number] 25mg Take 1 tablet by mouth every 6 (six) hours as needed for Anxiety. [facility] hydrOXYzine 25 mg tablet 2023-0 -23 00:00: 00 Yes [id number] 25mg Take 1 tablet by mouth every 6 (six) hours as needed for Anxiety. [facility] hydrOXYzine 25 mg tablet 3-0 -23 00:00: 00 Yes [id number] 25mg Take 1 tablet by mouth every 6 (six) hours as needed for Anxiety. [facility] hydrOXYzine 25 mg tablet 3-0 -23 00:00: 00 Yes [id number] 25mg Take 1 tablet by mouth every 6 (six) hours as needed for Anxiety. [facility] hydrOXYzine 25 mg tablet 2023-0 -23 00:00: 00 Yes [id number] 25mg Take 1 tablet by mouth every 6 (six) hours as needed for Anxiety. [facility] hydrOXYzine 25 mg tablet 2023-0 1-23 00:00: 00 Yes [id number] 25mg Take 1 tablet by mouth every 6 (six) hours as needed for Anxiety. [facility] hydrOXYzine 25 mg tablet 2023-0 1-23 00:00: 00 Yes [id number] 25mg Take 1 tablet by mouth every 6 (six) hours as needed for Anxiety. [facility] hydrOXYzine 25 mg tablet 2023-0 1-23 00:00: 00 Yes [id number] 25mg Take 1 tablet by mouth every 6 (six) hours as needed for Anxiety. [facility] hydrOXYzine 25 mg tablet 3-0 -23 00:00: 00 Yes [id number] 25mg Take 1 tablet by mouth every 6 (six) hours as needed for Anxiety. [facility] hydrOXYzine 25 mg tablet 3-0 23 00:00: 00 Yes [id number] 25mg Take 1 tablet by mouth every 6 (six) hours as needed for Anxiety. [facility] hydrOXYzine 25 mg tablet 3-0 23 00:00: 00 Yes [id number] 25mg Take 1 tablet by mouth every 6 (six) hours as needed for Anxiety. [facility] hydrOXYzine 25 mg tablet 2022-0 23 00:00: 00 Yes [id number] 25mg Take 1 tablet by mouth every 6 (six) hours as needed for Anxiety. [facility] hydrOXYzine 25 mg tablet 2022-0 07-25 00:00: 00 Yes [id number] 25mg Take 1 tablet by mouth every 6 (six) hours as needed for Anxiety. [facility] hydrOXYzine 25 mg tablet 2022-0 07-25 00:00: 00 Yes [id number] 25mg Take 1 tablet by mouth every 6 (six) hours as needed for Anxiety. [facility] hydrOXYzine 25 mg tablet 2022-0 07-25 00:00: 00 Yes [id number] 25mg Take 1 tablet by mouth every 6 (six) hours as needed for Anxiety. [facility] hydrOXYzine 25 mg tablet 2022-0 07-25 00:00: 00 01-21 00:00 :00 No [id number] 25mg Take 1 tablet by mouth every 6 (six) hours as needed for Anxiety. [facility] hydrOXYzine 25 mg tablet 3-0 23 00:00: 00 01-21 00:00 :00 No [id number] 25mg Take 1 tablet by mouth every 6 (six) hours as needed for Anxiety. [facility] lamoTRIgine 25 mg tablet 2022-0 07-13 00:00: 00 Yes [id number] 25mg Take 1 tablet by mouth in the morning. [facility] lamoTRIgine 25 mg tablet 3-0 1-11 00:00: 00 Yes [id number] 25mg Take 1 tablet by mouth in the morning. [facility] lamoTRIgine 25 mg tablet 3-0 1-11 00:00: 00 Yes [id number] 25mg Take 1 tablet by mouth in the morning. [facility] lamoTRIgine 25 mg tablet 3-0 1-11 00:00: 00 Yes [id number] 25mg Take 1 tablet by mouth in the morning. [facility] lamoTRIgine 25 mg tablet 3-0 1-11 00:00: 00 Yes [id number] 25mg Take 1 tablet by mouth in the morning. [facility] lamoTRIgine 25 mg tablet 3-0 1-11 00:00: 00 08-22 00:00 :00 No [id number] 25mg Take 1 tablet by mouth in the morning. [facility] lamoTRIgine 25 mg tablet 3-0 1-11 00:00: 00 08-22 00:00 :00 No [id number] 25mg Take 1 tablet by mouth in the morning. [facility] lamoTRIgine 25 mg tablet 3-0 1-11 00:00: 00 08-22 00:00 :00 No [id number] 25mg Take 1 tablet by mouth in the morning. [facility] lamoTRIgine 25 mg tablet 3-0 1-11 00:00: 00 08-22 00:00 :00 No [id number] 25mg Take 1 tablet by mouth in the morning. [facility] lamoTRIgine 25 mg tablet 3-0 1-11 00:00: 00 08-22 00:00 :00 No [id number] 25mg Take 1 tablet by mouth in the morning. [facility] lamoTRIgine 25 mg tablet 3-0 1-11 00:00: 00 08-22 00:00 :00 No [id number] 25mg Take 1 tablet by mouth in the morning. [facility] lamoTRIgine 25 mg tablet 0 -11 00:00: 00 08-22 00:00 :00 No [id number] 25mg Take 1 tablet by mouth in the morning. [facility] ARIPiprazol e 15 mg tablet 2022-0 1-10 00:00: 00 10-11 04:59 :00 No [id number] 15mg Take 1 tablet by mouth in the morning for 90 days. [facility] ARIPiprazol e 15 mg tablet 2022-0 1-10 00:00: 00 10-11 04:59 :00 No [id number] 15mg Take 1 tablet by mouth in the morning for 90 days. [facility] ARIPiprazol e 15 mg tablet 2022-0 1-10 00:00: 00 10-11 04:59 :00 No [id number] 15mg Take 1 tablet by mouth in the morning for 90 days. [facility] ARIPiprazol e 15 mg tablet 2022-0 -10 00:00: 00 10-11 04:59 :00 No [id number] 15mg Take 1 tablet by mouth in the morning for 90 days. [facility] ARIPiprazol e 15 mg tablet 0 -10 00:00: 00 10-11 04:59 :00 No [id number] 15mg Take 1 tablet by mouth in the morning for 90 days. [facility] ARIPiprazol e 15 mg tablet 2022-0 -10 00:00: 00 10-11 04:59 :00 No [id number] 15mg Take 1 tablet by mouth in the morning for 90 days. [facility] ARIPiprazol e 15 mg tablet 2022-0 1-10 00:00: 00 08-22 00:00 :00 No [id number] 15mg Take 1 tablet by mouth in the morning for 90 days. [facility] ARIPiprazol e 15 mg tablet 2022-0 1-10 00:00: 00 08-22 00:00 :00 No [id number] 15mg Take 1 tablet by mouth in the morning for 90 days. [facility] ARIPiprazol e 15 mg tablet 2022-0 1-10 00:00: 00 08-22 00:00 :00 No [id number] 15mg Take 1 tablet by mouth in the morning for 90 days. [facility] ARIPiprazol e 15 mg tablet 2022-0 1-10 00:00: 00 08-22 00:00 :00 No [id number] 15mg Take 1 tablet by mouth in the morning for 90 days. [facility] ARIPiprazol e 15 mg tablet 2022-0 1-10 00:00: 00 08-22 00:00 :00 No [id number] 15mg Take 1 tablet by mouth in the morning for 90 days. [facility] ARIPiprazol e 15 mg tablet 2022-0 1-10 00:00: 00 08-22 00:00 :00 No [id number] 15mg Take 1 tablet by mouth in the morning for 90 days. [facility] ARIPiprazol e 15 mg tablet 2022-0 1-10 00:00: 00 08-22 00:00 :00 No [id number] 15mg Take 1 tablet by mouth in the morning for 90 days. [facility] ARIPiprazol e (ABILIFY MAINTENA) injection SSRR 300 mg 2021-07 17:45: 00 06-16 16:48 :00 No [id number] 300mg [facility] ARIPiprazol e (ABILIFY MAINTENA) injection SSRR 300 mg 2021-07 17:45: 00 06-16 16:48 :00 No [id number] 300mg [facility] ARIPiprazol e (ABILIFY MAINTENA) injection SSRR 300 mg 2021-07 2- 17:45: 00 06-16 16:48 :00 No [id number] 300mg [facility] ARIPiprazol e (ABILIFY MAINTENA) injection SSRR 300 mg 2021-07 17:45: 00 06-16 16:48 :00 No [id number] 300mg [facility] hydrOXYzine 25 mg tablet 2021-07 00:00: 00 Yes [id number] 25mg Take 1 tablet by mouth every 6 (six) hours as needed for Anxiety. [facility] lamoTRIgine 25 mg tablet 2021-07 00:00: 00 Yes [id number] 25mg Take 1 tablet by mouth in the morning. [facility] naltrexone 50 mg tablet 2021-07 00:00: 00 Yes [id number] 50mg Take 1 tablet by mouth in the morning. [facility] hydrOXYzine 25 mg tablet 2021-07 00:00: 00 Yes [id number] 25mg Take 1 tablet by mouth every 6 (six) hours as needed for Anxiety. [facility] lamoTRIgine 25 mg tablet 2021-07 00:00: 00 Yes [id number] 25mg Take 1 tablet by mouth in the morning. [facility] naltrexone 50 mg tablet 2021-07 00:00: 00 Yes [id number] 50mg Take 1 tablet by mouth in the morning. [facility] hydrOXYzine 25 mg tablet 2021-07 00:00: 00 Yes [id number] 25mg Take 1 tablet by mouth every 6 (six) hours as needed for Anxiety. [facility] lamoTRIgine 25 mg tablet 2021-07 00:00: 00 Yes [id number] 25mg Take 1 tablet by mouth in the morning. [facility] naltrexone 50 mg tablet 2021-07 00:00: 00 Yes [id number] 50mg Take 1 tablet by mouth in the morning. [facility] hydrOXYzine 25 mg tablet 2021-07 00:00: 00 Yes [id number] 25mg Take 1 tablet by mouth every 6 (six) hours as needed for Anxiety. [facility] lamoTRIgine 25 mg tablet 2021-07 00:00: 00 Yes [id number] 25mg Take 1 tablet by mouth in the morning. [facility] naltrexone 50 mg tablet 2021-07 00:00: 00 Yes [id number] 50mg Take 1 tablet by mouth in the morning. [facility] hydrOXYzine 25 mg tablet 2021-07 00:00: 00 Yes [id number] 25mg Take 1 tablet by mouth every 6 (six) hours as needed for Anxiety. [facility] lamoTRIgine 25 mg tablet 2021-07 00:00: 00 Yes [id number] 25mg Take 1 tablet by mouth in the morning. [facility] naltrexone 50 mg tablet 2021-07 00:00: 00 Yes [id number] 50mg Take 1 tablet by mouth in the morning. [facility] hydrOXYzine 25 mg tablet 2021-07 00:00: 00 Yes [id number] 25mg Take 1 tablet by mouth every 6 (six) hours as needed for Anxiety. [facility] lamoTRIgine 25 mg tablet 2021-07 00:00: 00 Yes [id number] 25mg Take 1 tablet by mouth in the morning. [facility] naltrexone 50 mg tablet 2021-07 00:00: 00 Yes [id number] 50mg Take 1 tablet by mouth in the morning. [facility] hydrOXYzine 25 mg tablet 2021-07 00:00: 00 Yes [id number] 25mg Take 1 tablet by mouth every 6 (six) hours as needed for Anxiety. [facility] lamoTRIgine 25 mg tablet 2021-07 00:00: 00 Yes [id number] 25mg Take 1 tablet by mouth in the morning. [facility] naltrexone 50 mg tablet 2021-07 00:00: 00 Yes [id number] 50mg Take 1 tablet by mouth in the morning. [facility] hydrOXYzine 25 mg tablet 2021-07 00:00: 00 Yes [id number] 25mg Take 1 tablet by mouth every 6 (six) hours as needed for Anxiety. [facility] lamoTRIgine 25 mg tablet 2021-07 00:00: 00 Yes [id number] 25mg Take 1 tablet by mouth in the morning. [facility] naltrexone 50 mg tablet 2021-07 00:00: 00 Yes [id number] 50mg Take 1 tablet by mouth in the morning. [facility] hydrOXYzine 25 mg tablet 2021-07 00:00: 00 Yes [id number] 25mg Take 1 tablet by mouth every 6 (six) hours as needed for Anxiety. [facility] lamoTRIgine 25 mg tablet 2021-07 00:00: 00 Yes [id number] 25mg Take 1 tablet by mouth in the morning. [facility] naltrexone 50 mg tablet 2021-07 00:00: 00 Yes [id number] 50mg Take 1 tablet by mouth in the morning. [facility] hydrOXYzine 25 mg tablet 2021-07 00:00: 00 Yes [id number] 25mg Take 1 tablet by mouth every 6 (six) hours as needed for Anxiety. [facility] naltrexone 50 mg tablet 2021-07 00:00: 00 Yes [id number] 50mg Take 1 tablet by mouth in the morning. [facility] naltrexone 50 mg tablet 2021-07 00:00: 00 Yes [id number] 50mg Take 1 tablet by mouth in the morning. [facility] naltrexone 50 mg tablet 2021-07 00:00: 00 Yes [id number] 50mg Take 1 tablet by mouth in the morning. [facility] naltrexone 50 mg tablet 2021-07 00:00: 00 Yes [id number] 50mg Take 1 tablet by mouth in the morning. [facility] naltrexone 50 mg tablet 2021-07 00:00: 00 Yes [id number] 50mg Take 1 tablet by mouth in the morning. [facility] atomoxetine (STRATTERA) 60 mg capsule 2021-07 00:00: 00 09-12 04:59 :00 No [id number] 60mg Take 1 capsule by mouth in the morning for 90 days. [facility] atomoxetine (STRATTERA) 60 mg capsule 2022-1 2-12 00:00: 00 09-12 04:59 :00 No [id number] 60mg Take 1 capsule by mouth in the morning for 90 days. [facility] atomoxetine (STRATTERA) 60 mg capsule 2021-07 2-12 00:00: 00 09-12 04:59 :00 No [id number] 60mg Take 1 capsule by mouth in the morning for 90 days. [facility] atomoxetine (STRATTERA) 60 mg capsule 2021-07 2 00:00: 00 09-12 04:59 :00 No [id number] 60mg Take 1 capsule by mouth in the morning for 90 days. [facility] atomoxetine (STRATTERA) 60 mg capsule 2021-07 00:00: 00 09-12 04:59 :00 No [id number] 60mg Take 1 capsule by mouth in the morning for 90 days. [facility] atomoxetine (STRATTERA) 60 mg capsule 2021-07 00:00: 00 09-12 04:59 :00 No [id number] 60mg Take 1 capsule by mouth in the morning for 90 days. [facility] atomoxetine (STRATTERA) 60 mg capsule 2021-07 00:00: 00 09-12 04:59 :00 No [id number] 60mg Take 1 capsule by mouth in the morning for 90 days. [facility] atomoxetine (STRATTERA) 60 mg capsule 2021-07 2 00:00: 00 09-12 04:59 :00 No [id number] 60mg Take 1 capsule by mouth in the morning for 90 days. [facility] atomoxetine (STRATTERA) 60 mg capsule 2021-07 2 00:00: 00 09-12 04:59 :00 No [id number] 60mg Take 1 capsule by mouth in the morning for 90 days. [facility] atomoxetine (STRATTERA) 60 mg capsule 2021-07 2 00:00: 00 09-12 04:59 :00 No [id number] 60mg Take 1 capsule by mouth in the morning for 90 days. [facility] atomoxetine (STRATTERA) 60 mg capsule 2021-07 2-12 00:00: 00 09-12 04:59 :00 No [id number] 60mg Take 1 capsule by mouth in the morning for 90 days. [facility] atomoxetine (STRATTERA) 60 mg capsule 2021-07 2-12 00:00: 00 09-12 04:59 :00 No [id number] 60mg Take 1 capsule by mouth in the morning for 90 days. [facility] atomoxetine (STRATTERA) 60 mg capsule 2021-07 2-12 00:00: 00 09-12 04:59 :00 No [id number] 60mg Take 1 capsule by mouth in the morning for 90 days. [facility] atomoxetine (STRATTERA) 60 mg capsule 2021-07 2-12 00:00: 00 09-12 04:59 :00 No [id number] 60mg Take 1 capsule by mouth in the morning for 90 days. [facility] atomoxetine (STRATTERA) 60 mg capsule 2021-07 2-12 00:00: 00 08-22 00:00 :00 No [id number] 60mg Take 1 capsule by mouth in the morning for 90 days. [facility] naltrexone 50 mg tablet 2021-07 2-12 00:00: 00 08-22 00:00 :00 No [id number] 50mg Take 1 tablet by mouth in the morning. [facility] atomoxetine (STRATTERA) 60 mg capsule 2021-07 2-12 00:00: 00 08-22 00:00 :00 No [id number] 60mg Take 1 capsule by mouth in the morning for 90 days. [facility] naltrexone 50 mg tablet 2021-07 2-12 00:00: 00 08-22 00:00 :00 No [id number] 50mg Take 1 tablet by mouth in the morning. [facility] atomoxetine (STRATTERA) 60 mg capsule 2021-07 2-12 00:00: 00 08-22 00:00 :00 No [id number] 60mg Take 1 capsule by mouth in the morning for 90 days. [facility] naltrexone 50 mg tablet 2021-07 2-12 00:00: 00 08-22 00:00 :00 No [id number] 50mg Take 1 tablet by mouth in the morning. [facility] atomoxetine (STRATTERA) 60 mg capsule 2021-07 2-12 00:00: 00 08-22 00:00 :00 No [id number] 60mg Take 1 capsule by mouth in the morning for 90 days. [facility] naltrexone 50 mg tablet 2021-07 2-12 00:00: 00 08-22 00:00 :00 No [id number] 50mg Take 1 tablet by mouth in the morning. [facility] atomoxetine (STRATTERA) 60 mg capsule 2021-07 2-12 00:00: 00 08-22 00:00 :00 No [id number] 60mg Take 1 capsule by mouth in the morning for 90 days. [facility] naltrexone 50 mg tablet 2021-07 2-12 00:00: 00 08-22 00:00 :00 No [id number] 50mg Take 1 tablet by mouth in the morning. [facility] atomoxetine (STRATTERA) 60 mg capsule 2021-07 2-12 00:00: 00 08-22 00:00 :00 No [id number] 60mg Take 1 capsule by mouth in the morning for 90 days. [facility] naltrexone 50 mg tablet 2021-07 2-12 00:00: 00 08-22 00:00 :00 No [id number] 50mg Take 1 tablet by mouth in the morning. [facility] atomoxetine (STRATTERA) 60 mg capsule 2021-07 2-12 00:00: 00 08-22 00:00 :00 No [id number] 60mg Take 1 capsule by mouth in the morning for 90 days. [facility] naltrexone 50 mg tablet 2021-07 2-12 00:00: 00 08-22 00:00 :00 No [id number] 50mg Take 1 tablet by mouth in the morning. [facility] hydrOXYzine 25 mg tablet 2021-07 2-12 00:00: 00 07-25 00:00 :00 No [id number] 25mg Take 1 tablet by mouth every 6 (six) hours as needed for Anxiety. [facility] hydrOXYzine 25 mg tablet 2021-07 2-12 00:00: 00 07-25 00:00 :00 No [id number] 25mg Take 1 tablet by mouth every 6 (six) hours as needed for Anxiety. [facility] hydrOXYzine 25 mg tablet 2021-07 2-12 00:00: 00 07-25 00:00 :00 No [id number] 25mg Take 1 tablet by mouth every 6 (six) hours as needed for Anxiety. [facility] hydrOXYzine 25 mg tablet 2021-07 2- 00:00: 00 07-25 00:00 :00 No [id number] 25mg Take 1 tablet by mouth every 6 (six) hours as needed for Anxiety. [facility] hydrOXYzine 25 mg tablet 2021-07 2- 00:00: 00 07-25 00:00 :00 No [id number] 25mg Take 1 tablet by mouth every 6 (six) hours as needed for Anxiety. [facility] hydrOXYzine 25 mg tablet 2021-07 2- 00:00: 00 07-25 00:00 :00 No [id number] 25mg Take 1 tablet by mouth every 6 (six) hours as needed for Anxiety. [facility] hydrOXYzine 25 mg tablet 2021-07 2-12 00:00: 00 07-25 00:00 :00 No [id number] 25mg Take 1 tablet by mouth every 6 (six) hours as needed for Anxiety. [facility] lamoTRIgine 25 mg tablet 2021- 2-12 00:00: 00 07-12 00:00 :00 No [id number] 25mg Take 1 tablet by mouth in the morning. [facility] lamoTRIgine 25 mg tablet 2021-07 2-12 00:00: 00 07-12 00:00 :00 No [id number] 25mg Take 1 tablet by mouth in the morning. [facility] lamoTRIgine 25 mg tablet 2021-07 2 00:00: 00 07-12 00:00 :00 No [id number] 25mg Take 1 tablet by mouth in the morning. [facility] lamoTRIgine 25 mg tablet 2021-07 00:00: 00 07-12 00:00 :00 No [id number] 25mg Take 1 tablet by mouth in the morning. [facility] lamoTRIgine 25 mg tablet 2021-07 00:00: 00 07-12 00:00 :00 No [id number] 25mg Take 1 tablet by mouth in the morning. [facility] hydrOXYzine (ATARAX) tablet 25 mg 2021-07 05:00: 00 06-01 05:14 :00 No 25mg 25 mg, Oral, ONCE, 1 dose, On Mon05/31/22 at 2300, ARLEN [facility] hydrOXYzine 25 mg tablet 2021-07 00:00: 00 Yes [id number] 25mg Take 1 tablet by mouth every 6 (six) hours as needed for Anxiety. [facility] hydrOXYzine 25 mg tablet 2021-07 00:00: 00 06-13 00:00 :00 No [id number] 25mg Take 1 tablet by mouth every 6 (six) hours as needed for Anxiety. [facility] hydrOXYzine 25 mg tablet 2021-07 00:00: 00 06-13 00:00 :00 No [id number] 25mg Take 1 tablet by mouth every 6 (six) hours as needed for Anxiety. [facility] hydrOXYzine 25 mg tablet 2021-07 00:00: 00 06-13 00:00 :00 No [id number] 25mg Take 1 tablet by mouth every 6 (six) hours as needed for Anxiety. [facility] hydrOXYzine 25 mg tablet 2021-07 00:00: 00 06-13 00:00 :00 No [id number] 25mg Take 1 tablet by mouth every 6 (six) hours as needed for Anxiety. [facility] hydrOXYzine 25 mg tablet 2021-07 00:00: 00 06-13 00:00 :00 No [id number] 25mg Take 1 tablet by mouth every 6 (six) hours as needed for Anxiety. [facility] ARIPiprazol e (ABILIFY MAINTENA) injection SSRR 300 mg 2021-07 17:00: 00 05-19 16:17 :00 No [id number] 300mg [facility] ARIPiprazol e (ABILIFY MAINTENA) injection SSRR 300 mg 2021-07 17:00: 00 05-19 16:17 :00 No [id number] 300mg [facility] ARIPiprazol e (ABILIFY MAINTENA) injection SSRR 300 mg 2021-07 17:00: 00 05-19 16:17 :00 No [id number] 300mg [facility] ARIPiprazol e (ABILIFY MAINTENA) injection SSRR 300 mg 2021-07 17:00: 00 05-19 16:17 :00 No [id number] 300mg [facility] ARIPiprazol e (ABILIFY MAINTENA) injection SSRR 300 mg 2021-07 17:00: 00 05-19 16:17 :00 No [id number] 300mg [facility] ABILIFY MAINTENA 300 mg sers 2021-07 00:00: 00 Yes [facility] ABILIFY MAINTENA 300 mg sers 2021-07 00:00: 00 Yes [facility] ABILIFY MAINTENA 300 mg sers 2021-07 00:00: 00 Yes [facility] ABILIFY MAINTENA 300 mg sers 2021-07 00:00: 00 Yes [facility] ABILIFY MAINTENA 300 mg sers 2021-07 00:00: [address] [facility] ABILIFY MAINTENA 300 mg sers 2021-07 00:00: 00 Yes [facility] ABILIFY MAINTENA 300 mg sers 2021-07 00:00: [address] [facility] ABILIFY MAINTENA 300 mg sers 2021-07 00:00: [address] [facility] ABILIFY MAINTENA 300 mg sers 2021-07 00:00: [address] [facility] [address] [facility] ABILIFY MAINTENA 300 mg sers 2021-07 00:00: 00 07-12 00:00 :00 No [facility] ABILIFY MAINTENA 300 mg sers 2021-07 00:00: 00 07-12 00:00 :00 No [facility] ABILIFY MAINTENA 300 mg sers 2021-07 00:00: 00 07-12 00:00 :00 No [facility] ABILIFY MAINTENA 300 mg sers 2021-07 00:00: 00 07-12 00:00 :00 No [facility] ABILIFY MAINTENA 300 mg sers 2021-07 00:00: 00 07-12 00:00 :00 No [facility] ABILIFY MAINTENA 300 mg sers 2021-07 00:00: 00 07-12 00:00 :00 No [facility] atomoxetine 40 mg capsule 2021-07 00:00: 00 Yes [id number] 40mg Take 1 capsule by mouth in the morning. [facility] lamoTRIgine 25 mg tablet 2021-07 00:00: 00 Yes [id number] 25mg Take 1 tablet by mouth in the morning. [facility] atomoxetine 40 mg capsule 2021-07 0 00:00: 00 Yes [id number] 40mg Take 1 capsule by mouth in the morning. [facility] lamoTRIgine 25 mg tablet 2021- 0 00:00: 00 Yes [id number] 25mg Take 1 tablet by mouth in the morning. [facility] atomoxetine 40 mg capsule 2021-07 0 00:00: 00 Yes [id number] 40mg Take 1 capsule by mouth in the morning. [facility] lamoTRIgine 25 mg tablet 2021- 0 00:00: 00 Yes [id number] 25mg Take 1 tablet by mouth in the morning. [facility] atomoxetine 40 mg capsule 2021-07 0 00:00: 00 Yes [id number] 40mg Take 1 capsule by mouth in the morning. [facility] lamoTRIgine 25 mg tablet 2021-07 0 00:00: 00 Yes [id number] 25mg Take 1 tablet by mouth in the morning. [facility] atomoxetine 40 mg capsule 2021-07 0 00:00: 00 Yes [id number] 40mg Take 1 capsule by mouth in the morning. [facility] lamoTRIgine 25 mg tablet 2021- 0 00:00: 00 Yes [id number] 25mg Take 1 tablet by mouth in the morning. [facility] atomoxetine 40 mg capsule 2021-07 0 00:00: 00 Yes [id number] 40mg Take 1 capsule by mouth in the morning. [facility] lamoTRIgine 25 mg tablet 2021- 0 00:00: 00 Yes [id number] 25mg Take 1 tablet by mouth in the morning. [facility] atomoxetine 40 mg capsule 2021-07 0 00:00: 00 Yes [id number] 40mg Take 1 capsule by mouth in the morning. [facility] lamoTRIgine 25 mg tablet 2021- 0 00:00: 00 Yes [id number] 25mg Take 1 tablet by mouth in the morning. [facility] atomoxetine 40 mg capsule 2021-07 0 00:00: 00 Yes [id number] 40mg Take 1 capsule by mouth in the morning. [facility] lamoTRIgine 25 mg tablet 2021- 0 00:00: 00 Yes [id number] 25mg Take 1 tablet by mouth in the morning. [facility] atomoxetine 40 mg capsule 2021-07 0 00:00: 00 Yes [id number] 40mg Take 1 capsule by mouth in the morning. [facility] lamoTRIgine 25 mg tablet 2021-07 0 00:00: 00 Yes [id number] 25mg Take 1 tablet by mouth in the morning. [facility] naltrexone 50 mg tablet 2021-07 0 00:00: 00 08-01 05:59 :00 No [id number] 50mg Take 1 tablet by mouth in the morning for 90 days. [facility] naltrexone 50 mg tablet 2021-07 0 00:00: 00 08-01 05:59 :00 No [id number] 50mg Take 1 tablet by mouth in the morning for 90 days. [facility] naltrexone 50 mg tablet 2021-07 0 00:00: 00 08-01 05:59 :00 No [id number] 50mg Take 1 tablet by mouth in the morning for 90 days. [facility] naltrexone 50 mg tablet 2021-07 0 00:00: 00 08-01 05:59 :00 No [id number] 50mg Take 1 tablet by mouth in the morning for 90 days. [facility] naltrexone 50 mg tablet 2021-07 0 00:00: 00 08-01 05:59 :00 No [id number] 50mg Take 1 tablet by mouth in the morning for 90 days. [facility] naltrexone 50 mg tablet 2021-07 0 00:00: 00 08-01 05:59 :00 No [id number] 50mg Take 1 tablet by mouth in the morning for 90 days. [facility] naltrexone 50 mg tablet 2021-07 0 00:00: 00 08-01 05:59 :00 No [id number] 50mg Take 1 tablet by mouth in the morning for 90 days. [facility] naltrexone 50 mg tablet 2021-07 0 00:00: 00 08-01 05:59 :00 No [id number] 50mg Take 1 tablet by mouth in the morning for 90 days. [facility] naltrexone 50 mg tablet 2021-07 0-31 00:00: 00 08-01 05:59 :00 No [id number] 50mg Take 1 tablet by mouth in the morning for 90 days. [facility] naltrexone 50 mg tablet 2021-07 0-31 00:00: 00 06-13 00:00 :00 No [id number] 50mg Take 1 tablet by mouth in the morning for 90 days. [facility] atomoxetine 40 mg capsule 2021-07 0-31 00:00: 00 06-13 00:00 :00 No [id number] 40mg Take 1 capsule by mouth in the morning. [facility] lamoTRIgine 25 mg tablet 2021-07 0-31 00:00: 00 06-13 00:00 :00 No [id number] 25mg Take 1 tablet by mouth in the morning. [facility] naltrexone 50 mg tablet 2021-07 0-31 00:00: 00 06-13 00:00 :00 No [id number] 50mg Take 1 tablet by mouth in the morning for 90 days. [facility] atomoxetine 40 mg capsule 2021-07 0-31 00:00: 00 06-13 00:00 :00 No [id number] 40mg Take 1 capsule by mouth in the morning. [facility] lamoTRIgine 25 mg tablet 2021-07 0-31 00:00: 00 06-13 00:00 :00 No [id number] 25mg Take 1 tablet by mouth in the morning. [facility] naltrexone 50 mg tablet 2021-07 0-31 00:00: 00 06-13 00:00 :00 No [id number] 50mg Take 1 tablet by mouth in the morning for 90 days. [facility] atomoxetine 40 mg capsule 2021-07 0-31 00:00: 00 06-13 00:00 :00 No [id number] 40mg Take 1 capsule by mouth in the morning. [facility] lamoTRIgine 25 mg tablet 2021-07 0-31 00:00: 00 06-13 00:00 :00 No [id number] 25mg Take 1 tablet by mouth in the morning. [facility] naltrexone 50 mg tablet 2021-07 0-31 00:00: 00 06-13 00:00 :00 No [id number] 50mg Take 1 tablet by mouth in the morning for 90 days. [facility] atomoxetine 40 mg capsule 2021-07 0-31 00:00: 00 06-13 00:00 :00 No [id number] 40mg Take 1 capsule by mouth in the morning. [facility] lamoTRIgine 25 mg tablet 2021-07 0-31 00:00: 00 06-13 00:00 :00 No [id number] 25mg Take 1 tablet by mouth in the morning. [facility] naltrexone 50 mg tablet 2021-07 0-31 00:00: 00 06-13 00:00 :00 No [id number] 50mg Take 1 tablet by mouth in the morning for 90 days. [facility] atomoxetine 40 mg capsule 2021-07 0-31 00:00: 00 06-13 00:00 :00 No [id number] 40mg Take 1 capsule by mouth in the morning. [facility] lamoTRIgine 25 mg tablet 2021-07 0-31 00:00: 00 06-13 00:00 :00 No [id number] 25mg Take 1 tablet by mouth in the morning. [facility] ARIPiprazol e (ABILIFY MAINTENA) injection SSRR 300 mg 2021-07 0-20 15:15: 00 04-21 15:46 :00 No [id number] 300mg [facility] ARIPiprazol e (ABILIFY MAINTENA) injection SSRR 300 mg 2021-07 0-20 15:15: 00 04-21 15:46 :00 No [id number] 300mg [facility] ARIPiprazol e (ABILIFY MAINTENA) injection SSRR 300 mg 2021-07 15:15: 00 04-21 15:46 :00 No [id number] 300mg [facility] ARIPiprazol e (ABILIFY MAINTENA) injection SSRR 300 mg 2021-07 15:15: 00 04-21 15:46 :00 No [id number] 300mg [facility] ARIPiprazol e (ABILIFY MAINTENA) injection SSRR 300 mg 2021-07 15:15: 00 04-21 15:46 :00 No [id number] 300mg [facility] ARIPiprazol e (ABILIFY MAINTENA) injection SSRR 300 mg 2021-07 15:15: 00 04-21 15:46 :00 No [id number] 300mg [facility] ARIPiprazol e (ABILIFY MAINTENA) injection SSRR 300 mg 2021-07 15:45: 00 04-21 03:44 :00 No [id number] 300mg [facility] lamoTRIgine 25 mg tablet 2021-07 0-18 00:00: 00 Yes 25mg Take 1 tablet by mouth in the morning. [facility] lamoTRIgine 25 mg tablet 2021-07 0-18 00:00: 00 Yes 25mg Take 1 tablet by mouth in the morning. [facility] lamoTRIgine 25 mg tablet 2021-07 0-18 00:00: 00 Yes 25mg Take 1 tablet by mouth in the morning. [facility] lamoTRIgine 25 mg tablet 2021-07 0-18 00:00: 00 Yes 25mg Take 1 tablet by mouth in the morning. [facility] lamoTRIgine 25 mg tablet 2021-07 0-18 00:00: 00 Yes 25mg Take 1 tablet by mouth in the morning. [facility] lamoTRIgine 25 mg tablet 2021-07 0-18 00:00: 00 Yes 25mg Take 1 tablet by mouth in the morning. [facility] lamoTRIgine 25 mg tablet 2021-1 0-18 00:00: 00 Yes 25mg Take 1 tablet by mouth in the morning. [facility] lamoTRIgine 25 mg tablet 2021-1 0-18 00:00: 00 Yes 25mg Take 1 tablet by mouth in the morning. [facility] lamoTRIgine 25 mg tablet 2-1 0-18 00:00: 00 Yes 25mg Take 1 tablet by mouth in the morning. [facility] lamoTRIgine 25 mg tablet 2021-1 0-18 00:00: 00 Yes 25mg Take 1 tablet by mouth in the morning. [facility] lamoTRIgine 25 mg tablet 2021-1 0-18 00:00: 00 Yes 25mg Take 1 tablet by mouth in the morning. [facility] lamoTRIgine 25 mg tablet 2021- 0-18 00:00: 00 Yes 25mg Take 1 tablet by mouth in the morning. [facility] lamoTRIgine 25 mg tablet 2021- 0-18 00:00: 00 05-02 00:00 :00 No 25mg Take 1 tablet by mouth in the morning. [facility] lamoTRIgine 25 mg tablet 2021- 0-18 00:00: 00 05-02 00:00 :00 No 25mg Take 1 tablet by mouth in the morning. [facility] lamoTRIgine 25 mg tablet 2021- 0-18 00:00: 00 05-02 00:00 :00 No 25mg Take 1 tablet by mouth in the morning. [facility] lamoTRIgine 25 mg tablet 2021- 0-18 00:00: 00 05-02 00:00 :00 No 25mg Take 1 tablet by mouth in the morning. [facility] atomoxetine 40 mg capsule 2021-07 0-13 00:00: 00 Yes [id number] 40mg Take 1 capsule by mouth in the morning. [facility] atomoxetine 40 mg capsule 2021-07 0-13 00:00: 00 Yes [id number] 40mg Take 1 capsule by mouth in the morning. [facility] atomoxetine 40 mg capsule 2021-1 0-13 00:00: 00 Yes [id number] 40mg Take 1 capsule by mouth in the morning. [facility] atomoxetine 40 mg capsule 2021- 0-13 00:00: 00 Yes [id number] 40mg Take 1 capsule by mouth in the morning. [facility] atomoxetine 40 mg capsule 2021-1 0-13 00:00: 00 Yes [id number] 40mg Take 1 capsule by mouth in the morning. [facility] atomoxetine 40 mg capsule 20211 0-13 00:00: 00 Yes [id number] 40mg Take 1 capsule by mouth in the morning. [facility] atomoxetine 40 mg capsule 20211 013 00:00: 00 Yes [id number] 40mg Take 1 capsule by mouth in the morning. [facility] atomoxetine 40 mg capsule 2021 0-13 00:00: 00 Yes [id number] 40mg Take 1 capsule by mouth in the morning. [facility] atomoxetine 40 mg capsule 20211 013 00:00: 00 Yes [id number] 40mg Take 1 capsule by mouth in the morning. [facility] atomoxetine 40 mg capsule 2021-1 0-13 00:00: 00 Yes [id number] 40mg Take 1 capsule by mouth in the morning. [facility] atomoxetine 40 mg capsule 2-1 0-13 00:00: 00 Yes [id number] 40mg Take 1 capsule by mouth in the morning. [facility] atomoxetine 40 mg capsule 2-1 0-13 00:00: 00 Yes [id number] 40mg Take 1 capsule by mouth in the morning. [facility] atomoxetine 40 mg capsule 21 0-13 00:00: 00 Yes [id number] 40mg Take 1 capsule by mouth in the morning. [facility] atomoxetine 40 mg capsule 2-1 0-13 00:00: 00 Yes [id number] 40mg Take 1 capsule by mouth in the morning. [facility] atomoxetine 40 mg capsule 2-1 0-13 00:00: 00 Yes [id number] 40mg Take 1 capsule by mouth in the morning. [facility] atomoxetine 40 mg capsule 2021-07 0-13 00:00: 00 Yes [id number] 40mg Take 1 capsule by mouth in the morning. [facility] atomoxetine 40 mg capsule 2021-07 0-13 00:00: 00 Yes [id number] 40mg Take 1 capsule by mouth in the morning. [facility] atomoxetine 40 mg capsule 2021-07 0-13 00:00: 00 Yes [id number] 40mg Take 1 capsule by mouth in the morning. [facility] atomoxetine 40 mg capsule 2021-07 0-13 00:00: 00 05-02 00:00 :00 No [id number] 40mg Take 1 capsule by mouth in the morning. [facility] atomoxetine 40 mg capsule 2021-07 0-13 00:00: 00 05-02 00:00 :00 No [id number] 40mg Take 1 capsule by mouth in the morning. [facility] atomoxetine 40 mg capsule 2021-07 0- 00:00: 00 05-02 00:00 :00 No [id number] 40mg Take 1 capsule by mouth in the morning. [facility] atomoxetine 40 mg capsule 2021-07 0- 00:00: 00 05-02 00:00 :00 No [id number] 40mg Take 1 capsule by mouth in the morning. [facility] NaCl 0.9% (NS) bolus infusion 1,000 mL 2021-07 009 23:45: 00 04-11 03:09 :00 No 1000mL at 999 mL/hr, 1,000 mL, IV Infusion, ONCE, 1 dose, On 04/10/22 at 1845, ARLEN [facility] atomoxetine 40 mg capsule 2021-07 0- 00:00: 00 Yes 40mg Take 1 capsule by mouth in the morning. [facility] lamoTRIgine 25 mg tablet 2021-07 0- 00:00: 00 Yes 25mg Take 1 tablet by mouth in the morning. [facility] atomoxetine 40 mg capsule 2021-07 0 00:00: 00 Yes 40mg Take 1 capsule by mouth in the morning. [facility] lamoTRIgine 25 mg tablet 2021-07 0 00:00: 00 Yes 25mg Take 1 tablet by mouth in the morning. [facility] atomoxetine 40 mg capsule 2021-07 0 00:00: 00 Yes 40mg Take 1 capsule by mouth in the morning. [facility] lamoTRIgine 25 mg tablet 2021-07 0 00:00: 00 Yes 25mg Take 1 tablet by mouth in the morning. [facility] atomoxetine 40 mg capsule 2021-07 0 00:00: 00 Yes 40mg Take 1 capsule by mouth in the morning. [facility] lamoTRIgine 25 mg tablet 2021-07 0 00:00: 00 Yes 25mg Take 1 tablet by mouth in the morning. [facility] lamoTRIgine 25 mg tablet 2021-07 0 00:00: 00 Yes 25mg Take 1 tablet by mouth in the morning. [facility] lamoTRIgine 25 mg tablet 2021-07 0 00:00: 00 Yes 25mg Take 1 tablet by mouth in the morning. [facility] lamoTRIgine 25 mg tablet 2021-07 0 00:00: 00 Yes 25mg Take 1 tablet by mouth in the morning. [facility] lamoTRIgine 25 mg tablet 2021-07 0 00:00: 00 Yes 25mg Take 1 tablet by mouth in the morning. [facility] lamoTRIgine 25 mg tablet 2021-07 0 00:00: 00 Yes 25mg Take 1 tablet by mouth in the morning. [facility] lamoTRIgine 25 mg tablet 2021-07 0 00:00: 00 Yes 25mg Take 1 tablet by mouth in the morning. [facility] polyethylen e glycol 3350 17 gram powder 2021-07 0-07 00:00: 00 05-09 05:59 :00 No [id number] 17g Take 1 Packet by mouth in the morning for 30 days. [facility] polyethylen e glycol 3350 17 gram powder 2021-07 0-07 00:00: 00 05-09 05:59 :00 No [id number] 17g Take 1 Packet by mouth in the morning for 30 days. [facility] polyethylen e glycol 3350 17 gram powder 2021-07 0-07 00:00: 00 05-09 05:59 :00 No [id number] 17g Take 1 Packet by mouth in the morning for 30 days. [facility] polyethylen e glycol 3350 17 gram powder 2021-07 0-07 00:00: 00 05-09 05:59 :00 No [id number] 17g Take 1 Packet by mouth in the morning for 30 days. [facility] polyethylen e glycol 3350 17 gram powder 2021-07 0-07 00:00: 00 05-09 05:59 :00 No [id number] 17g Take 1 Packet by mouth in the morning for 30 days. [facility] polyethylen e glycol 3350 17 gram powder 2021-07 0-07 00:00: 00 05-09 05:59 :00 No [id number] 17g Take 1 Packet by mouth in the morning for 30 days. [facility] polyethylen e glycol 3350 17 gram powder 2021-07 0-07 00:00: 00 05-09 05:59 :00 No [id number] 17g Take 1 Packet by mouth in the morning for 30 days. [facility] polyethylen e glycol 3350 17 gram powder 2021-07 0-07 00:00: 00 05-09 05:59 :00 No [id number] 17g Take 1 Packet by mouth in the morning for 30 days. [facility] polyethylen e glycol 3350 17 gram powder 2021-07 0-07 00:00: 00 05-09 05:59 :00 No [id number] 17g Take 1 Packet by mouth in the morning for 30 days. [facility] polyethylen e glycol 3350 17 gram powder 2021-07 0-07 00:00: 00 05-09 05:59 :00 No [id number] 17g Take 1 Packet by mouth in the morning for 30 days. [facility] polyethylen e glycol 3350 17 gram powder 2021-07 0-07 00:00: 00 05-09 05:59 :00 No [id number] 17g Take 1 Packet by mouth in the morning for 30 days. [facility] polyethylen e glycol 3350 17 gram powder 2021-07 0-07 00:00: 00 05-09 05:59 :00 No [id number] 17g Take 1 Packet by mouth in the morning for 30 days. [facility] polyethylen e glycol 3350 17 gram powder 2021-07 0-07 00:00: 00 05-09 05:59 :00 No [id number] 17g Take 1 Packet by mouth in the morning for 30 days. [facility] polyethylen e glycol 3350 17 gram powder 2021-07 0-07 00:00: 00 05-09 05:59 :00 No [id number] 17g Take 1 Packet by mouth in the morning for 30 days. [facility] polyethylen e glycol 3350 17 gram powder 2021-07 0-07 00:00: 00 05-09 05:59 :00 No [id number] 17g Take 1 Packet by mouth in the morning for 30 days. [facility] polyethylen e glycol 3350 17 gram powder 2021-07 0-07 00:00: 00 05-09 05:59 :00 No [id number] 17g Take 1 Packet by mouth in the morning for 30 days. [facility] polyethylen e glycol 3350 17 gram powder 2021-07 0-07 00:00: 00 05-09 05:59 :00 No [id number] 17g Take 1 Packet by mouth in the morning for 30 days. [facility] polyethylen e glycol 3350 17 gram powder 2021-07 0-07 00:00: 00 05-09 05:59 :00 No [id number] 17g Take 1 Packet by mouth in the morning for 30 days. [facility] polyethylen e glycol 3350 17 gram powder 2021-07 0-07 00:00: 00 05-09 05:59 :00 No [id number] 17g Take 1 Packet by mouth in the morning for 30 days. [facility] polyethylen e glycol 3350 17 gram powder 2021-07 0-07 00:00: 00 05-09 05:59 :00 No [id number] 17g Take 1 Packet by mouth in the morning for 30 days. [facility] polyethylen e glycol 3350 17 gram powder 2021-07 0-07 00:00: 00 05-09 05:59 :00 No [id number] 17g Take 1 Packet by mouth in the morning for 30 days. [facility] polyethylen e glycol 3350 17 gram powder 2021-07 0-07 00:00: 00 05-09 05:59 :00 No [id number] 17g Take 1 Packet by mouth in the morning for 30 days. [facility] polyethylen e glycol 3350 17 gram powder 2021-07 0-07 00:00: 00 05-09 05:59 :00 No [id number] 17g Take 1 Packet by mouth in the morning for 30 days. [facility] polyethylen e glycol 3350 17 gram powder 2021-07 0-07 00:00: 00 05-09 05:59 :00 No [id number] 17g Take 1 Packet by mouth in the morning for 30 days. [facility] polyethylen e glycol 3350 17 gram powder 2021-07 0-07 00:00: 00 05-09 05:59 :00 No [id number] 17g Take 1 Packet by mouth in the morning for 30 days. [facility] polyethylen e glycol 3350 17 gram powder 2021-07 0-07 00:00: 00 05-09 05:59 :00 No [id number] 17g Take 1 Packet by mouth in the morning for 30 days. [facility] lamoTRIgine 25 mg tablet 2021-07 0-07 00:00: 00 04-19 00:00 :00 No 25mg Take 1 tablet by mouth in the morning. [facility] lamoTRIgine 25 mg tablet 2-1 0-07 00:00: 00 04-19 00:00 :00 No 25mg Take 1 tablet by mouth in the morning. [facility] lamoTRIgine 25 mg tablet 2-1 0-07 00:00: 00 04-19 00:00 :00 No 25mg Take 1 tablet by mouth in the morning. [facility] lamoTRIgine 25 mg tablet 2-1 0-07 00:00: 00 04-19 00:00 :00 No 25mg Take 1 tablet by mouth in the morning. [facility] lamoTRIgine 25 mg tablet 2021-1 0-07 00:00: 00 04-19 00:00 :00 No 25mg Take 1 tablet by mouth in the morning. [facility] lamoTRIgine 25 mg tablet 2021-1 0-07 00:00: 00 04-19 00:00 :00 No 25mg Take 1 tablet by mouth in the morning. [facility] lamoTRIgine 25 mg tablet 2021-1 0-07 00:00: 00 04-19 00:00 :00 No 25mg Take 1 tablet by mouth in the morning. [facility] lamoTRIgine 25 mg tablet 2-1 0-07 00:00: 00 04-19 00:00 :00 No 25mg Take 1 tablet by mouth in the morning. [facility] lamoTRIgine 25 mg tablet 2-1 0-07 00:00: 00 04-19 00:00 :00 No 25mg Take 1 tablet by mouth in the morning. [facility] lamoTRIgine 25 mg tablet 2021-1 0-07 00:00: 00 04-19 00:00 :00 No 25mg Take 1 tablet by mouth in the morning. [facility] lamoTRIgine 25 mg tablet 2-1 0-07 00:00: 00 04-19 00:00 :00 No 25mg Take 1 tablet by mouth in the morning. [facility] tamsulosin 0.4 mg 24 hr capsule 2021- 0-07 00:00: 00 04-16 04:59 :00 No [id number] .4mg Take 1 capsule by mouth in the morning for 7 days. [facility] tamsulosin 0.4 mg 24 hr capsule 2021- 0-07 00:00: 00 04-16 04:59 :00 No [id number] .4mg Take 1 capsule by mouth in the morning for 7 days. [facility] tamsulosin 0.4 mg 24 hr capsule 2021- 0-07 00:00: 00 04-16 04:59 :00 No [id number] .4mg Take 1 capsule by mouth in the morning for 7 days. [facility] tamsulosin 0.4 mg 24 hr capsule 2021- 0-07 00:00: 00 04-16 04:59 :00 No [id number] .4mg Take 1 capsule by mouth in the morning for 7 days. [facility] tamsulosin 0.4 mg 24 hr capsule 2021-07 0-07 00:00: 00 04-16 04:59 :00 No [id number] .4mg Take 1 capsule by mouth in the morning for 7 days. [facility] tamsulosin 0.4 mg 24 hr capsule 2021- 0-07 00:00: 00 04-16 04:59 :00 No [id number] .4mg Take 1 capsule by mouth in the morning for 7 days. [facility] tamsulosin 0.4 mg 24 hr capsule 2021- 0-07 00:00: 00 04-16 04:59 :00 No [id number] .4mg Take 1 capsule by mouth in the morning for 7 days. [facility] tamsulosin 0.4 mg 24 hr capsule 2021- 0-07 00:00: 00 04-16 04:59 :00 No [id number] .4mg Take 1 capsule by mouth in the morning for 7 days. [facility] tamsulosin 0.4 mg 24 hr capsule 2021- 0-07 00:00: 00 04-16 04:59 :00 No [id number] .4mg Take 1 capsule by mouth in the morning for 7 days. [facility] tamsulosin 0.4 mg 24 hr capsule 2021-07 0-07 00:00: 00 04-16 04:59 :00 No [id number] .4mg Take 1 capsule by mouth in the morning for 7 days. [facility] tamsulosin 0.4 mg 24 hr capsule 2021-07 0-07 00:00: 00 04-16 04:59 :00 No [id number] .4mg Take 1 capsule by mouth in the morning for 7 days. [facility] tamsulosin 0.4 mg 24 hr capsule 2021-07 0-07 00:00: 00 04-16 04:59 :00 No [id number] .4mg Take 1 capsule by mouth in the morning for 7 days. [facility] tamsulosin 0.4 mg 24 hr capsule 2021-07 0-07 00:00: 00 04-16 04:59 :00 No [id number] .4mg Take 1 capsule by mouth in the morning for 7 days. [facility] tamsulosin 0.4 mg 24 hr capsule 2021-07 0-07 00:00: 00 04-16 04:59 :00 No [id number] .4mg Take 1 capsule by mouth in the morning for 7 days. [facility] tamsulosin 0.4 mg 24 hr capsule 2021-07 0-07 00:00: 00 04-16 04:59 :00 No [id number] .4mg Take 1 capsule by mouth in the morning for 7 days. [facility] tamsulosin 0.4 mg 24 hr capsule 2021-07 0-07 00:00: 00 04-16 04:59 :00 No [id number] .4mg Take 1 capsule by mouth in the morning for 7 days. [facility] tamsulosin 0.4 mg 24 hr capsule 2021-07 0-07 00:00: 00 04-16 04:59 :00 No [id number] .4mg Take 1 capsule by mouth in the morning for 7 days. [facility] tamsulosin 0.4 mg 24 hr capsule 2021- 0-07 00:00: 00 04-16 04:59 :00 No [id number] .4mg Take 1 capsule by mouth in the morning for 7 days. [facility] tamsulosin 0.4 mg 24 hr capsule 2021-07 0-07 00:00: 00 04-16 04:59 :00 No [id number] .4mg Take 1 capsule by mouth in the morning for 7 days. [facility] tamsulosin 0.4 mg 24 hr capsule 2021-07 0-07 00:00: 00 04-16 04:59 :00 No [id number] .4mg Take 1 capsule by mouth in the morning for 7 days. [facility] tamsulosin 0.4 mg 24 hr capsule 2021-07 0-07 00:00: 00 04-16 04:59 :00 No [id number] .4mg Take 1 capsule by mouth in the morning for 7 days. [facility] atomoxetine 40 mg capsule 2021-07 0-07 00:00: 00 04-14 00:00 :00 No 40mg Take 1 capsule by mouth in the morning. [facility] atomoxetine 40 mg capsule 2021- 0-07 00:00: 00 04-14 00:00 :00 No 40mg Take 1 capsule by mouth in the morning. [facility] atomoxetine 40 mg capsule 2021- 0-07 00:00: 00 04-14 00:00 :00 No 40mg Take 1 capsule by mouth in the morning. [facility] atomoxetine 40 mg capsule 2021- 0-07 00:00: 00 04-14 00:00 :00 No 40mg Take 1 capsule by mouth in the morning. [facility] atomoxetine 40 mg capsule 2021- 0-07 00:00: 00 04-14 00:00 :00 No 40mg Take 1 capsule by mouth in the morning. [facility] atomoxetine 40 mg capsule 2021-1 0-07 00:00: 00 04-14 00:00 :00 No 40mg Take 1 capsule by mouth in the morning. [facility] atomoxetine 40 mg capsule 2021-1 0-07 00:00: 00 04-14 00:00 :00 No 40mg Take 1 capsule by mouth in the morning. [facility] atomoxetine 40 mg capsule 2021- 0-07 00:00: 00 04-14 00:00 :00 No 40mg Take 1 capsule by mouth in the morning. [facility] atomoxetine 40 mg capsule 2021- 0-07 00:00: 00 04-14 00:00 :00 No 40mg Take 1 capsule by mouth in the morning. [facility] atomoxetine 40 mg capsule 2021- 0-07 00:00: 00 04-14 00:00 :00 No 40mg Take 1 capsule by mouth in the morning. [facility] atomoxetine 40 mg capsule 2021-1 0-07 00:00: 00 04-14 00:00 :00 No 40mg Take 1 capsule by mouth in the morning. [facility] atomoxetine 40 mg capsule 2021- 0-07 00:00: 00 04-14 00:00 :00 No 40mg Take 1 capsule by mouth in the morning. [facility] atomoxetine 40 mg capsule 2021-1 0-07 00:00: 00 04-14 00:00 :00 No 40mg Take 1 capsule by mouth in the morning. [facility] atomoxetine 40 mg capsule 2021-1 0-07 00:00: 00 04-14 00:00 :00 No 40mg Take 1 capsule by mouth in the morning. [facility] atomoxetine 40 mg capsule 2021-1 0-07 00:00: 00 04-14 00:00 :00 No 40mg Take 1 capsule by mouth in the morning. [facility] atomoxetine 40 mg capsule 2021-1 0-07 00:00: 00 04-14 00:00 :00 No 40mg Take 1 capsule by mouth in the morning. [facility] atomoxetine 40 mg capsule 2021-07 0- 00:00: 00 04-14 00:00 :00 No 40mg Take 1 capsule by mouth in the morning. [facility] traZODone (DESYREL) tablet 50 mg 2021-07 0- 02:00: 00 Yes 50mg 50 mg, Oral, QHS, First dose on Mon04/06/22 at 2100, Until Discontinu ed, Routine [facility] acetaminoph en 500 mg tablet 2021-07 0- 00:00: 00 Yes [id number] 1000mg Take 2 tablets by mouth every 8 (eight) hours as needed for Pain. [facility] traZODone 50 mg tablet 2021-07 0 00:00: 00 Yes 50mg Take 1 tablet by mouth at bedtime. [facility] methocarbam oL 500 mg tablet 2021-07 0 00:00: 00 Yes [id number] 500mg Take 1 tablet by mouth 4 (four) times daily as needed (muscle spasms). [facility] ibuprofen 600 mg tablet 2021-07 0 00:00: 00 Yes [id number] 600mg Take 1 tablet by mouth every 6 (six) hours as needed for Pain (scale 4-6). [facility] acetaminoph en 500 mg tablet 2021-07 0- 00:00: 00 Yes [id number] 1000mg Take 2 tablets by mouth every 8 (eight) hours as needed for Pain. [facility] traZODone 50 mg tablet 2021-07 0- 00:00: 00 Yes 50mg Take 1 tablet by mouth at bedtime. [facility] methocarbam oL 500 mg tablet 2021-07 0- 00:00: 00 Yes [id number] 500mg Take 1 tablet by mouth 4 (four) times daily as needed (muscle spasms). [facility] ibuprofen 600 mg tablet 2021-07 0-06 00:00: 00 Yes [id number] 600mg Take 1 tablet by mouth every 6 (six) hours as needed for Pain (scale 4-6). [facility] acetaminoph en 500 mg tablet 2021-07 0- 00:00: 00 Yes [id number] 1000mg Take 2 tablets by mouth every 8 (eight) hours as needed for Pain. [facility] traZODone 50 mg tablet 2021-07 0- 00:00: 00 Yes 50mg Take 1 tablet by mouth at bedtime. [facility] methocarbam oL 500 mg tablet 2021-07 0- 00:00: 00 Yes [id number] 500mg Take 1 tablet by mouth 4 (four) times daily as needed (muscle spasms). [facility] ibuprofen 600 mg tablet 2021-07 0- 00:00: 00 Yes [id number] 600mg Take 1 tablet by mouth every 6 (six) hours as needed for Pain (scale 4-6). [facility] acetaminoph en 500 mg tablet 2021-07 0 00:00: 00 Yes [id number] 1000mg Take 2 tablets by mouth every 8 (eight) hours as needed for Pain. [facility] traZODone 50 mg tablet 2021-07 0 00:00: 00 Yes 50mg Take 1 tablet by mouth at bedtime. [facility] methocarbam oL 500 mg tablet 2021-07 0 00:00: 00 Yes [id number] 500mg Take 1 tablet by mouth 4 (four) times daily as needed (muscle spasms). [facility] ibuprofen 600 mg tablet 2021-07 0- 00:00: 00 Yes [id number] 600mg Take 1 tablet by mouth every 6 (six) hours as needed for Pain (scale 4-6). [facility] acetaminoph en 500 mg tablet 2021-07 0- 00:00: 00 Yes [id number] 1000mg Take 2 tablets by mouth every 8 (eight) hours as needed for Pain. [facility] traZODone 50 mg tablet 2021-07 0- 00:00: 00 Yes 50mg Take 1 tablet by mouth at bedtime. [facility] methocarbam oL 500 mg tablet 2021-07 0- 00:00: 00 Yes [id number] 500mg Take 1 tablet by mouth 4 (four) times daily as needed (muscle spasms). [facility] ibuprofen 600 mg tablet 2021-07 0- 00:00: 00 Yes [id number] 600mg Take 1 tablet by mouth every 6 (six) hours as needed for Pain (scale 4-6). [facility] acetaminoph en 500 mg tablet 2021-07 0 00:00: 00 Yes [id number] 1000mg Take 2 tablets by mouth every 8 (eight) hours as needed for Pain. [facility] traZODone 50 mg tablet 2021-07 0 00:00: 00 Yes 50mg Take 1 tablet by mouth at bedtime. [facility] methocarbam oL 500 mg tablet 2021-07 0 00:00: 00 Yes [id number] 500mg Take 1 tablet by mouth 4 (four) times daily as needed (muscle spasms). [facility] ibuprofen 600 mg tablet 2021-07 0 00:00: 00 Yes [id number] 600mg Take 1 tablet by mouth every 6 (six) hours as needed for Pain (scale 4-6). [facility] acetaminoph en 500 mg tablet 2021-07 0 00:00: 00 Yes [id number] 1000mg Take 2 tablets by mouth every 8 (eight) hours as needed for Pain. [facility] traZODone 50 mg tablet 2021-07 0 00:00: 00 Yes 50mg Take 1 tablet by mouth at bedtime. [facility] methocarbam oL 500 mg tablet 2021-07 0- 00:00: 00 Yes [id number] 500mg Take 1 tablet by mouth 4 (four) times daily as needed (muscle spasms). [facility] ibuprofen 600 mg tablet 2021-07 0- 00:00: 00 Yes [id number] 600mg Take 1 tablet by mouth every 6 (six) hours as needed for Pain (scale 4-6). [facility] acetaminoph en 500 mg tablet 2021-07 0- 00:00: 00 Yes [id number] 1000mg Take 2 tablets by mouth every 8 (eight) hours as needed for Pain. [facility] traZODone 50 mg tablet 2021-07 0 00:00: 00 Yes 50mg Take 1 tablet by mouth at bedtime. [facility] methocarbam oL 500 mg tablet 2021-07 0 00:00: 00 Yes [id number] 500mg Take 1 tablet by mouth 4 (four) times daily as needed (muscle spasms). [facility] ibuprofen 600 mg tablet 2021-07 0 00:00: 00 Yes [id number] 600mg Take 1 tablet by mouth every 6 (six) hours as needed for Pain (scale 4-6). [facility] acetaminoph en 500 mg tablet 2021-07 0 00:00: 00 Yes [id number] 1000mg Take 2 tablets by mouth every 8 (eight) hours as needed for Pain. [facility] traZODone 50 mg tablet 2021-07 0 00:00: 00 Yes 50mg Take 1 tablet by mouth at bedtime. [facility] methocarbam oL 500 mg tablet 2021-07 0 00:00: 00 Yes [id number] 500mg Take 1 tablet by mouth 4 (four) times daily as needed (muscle spasms). [facility] ibuprofen 600 mg tablet 2021-07 0 00:00: 00 Yes [id number] 600mg Take 1 tablet by mouth every 6 (six) hours as needed for Pain (scale 4-6). [facility] acetaminoph en 500 mg tablet 2021-07 0 00:00: 00 Yes [id number] 1000mg Take 2 tablets by mouth every 8 (eight) hours as needed for Pain. [facility] traZODone 50 mg tablet 2021-07 0- 00:00: 00 Yes 50mg Take 1 tablet by mouth at bedtime. [facility] methocarbam oL 500 mg tablet 2021-07 0- 00:00: 00 Yes [id number] 500mg Take 1 tablet by mouth 4 (four) times daily as needed (muscle spasms). [facility] ibuprofen 600 mg tablet 2021-07 0- 00:00: 00 Yes [id number] 600mg Take 1 tablet by mouth every 6 (six) hours as needed for Pain (scale 4-6). [facility] acetaminoph en 500 mg tablet 2021-07 0 00:00: 00 Yes [id number] 1000mg Take 2 tablets by mouth every 8 (eight) hours as needed for Pain. [facility] traZODone 50 mg tablet 2021-07 0 00:00: 00 Yes 50mg Take 1 tablet by mouth at bedtime. [facility] methocarbam oL 500 mg tablet 2021-07 0 00:00: 00 Yes [id number] 500mg Take 1 tablet by mouth 4 (four) times daily as needed (muscle spasms). [facility] ibuprofen 600 mg tablet 2021-07 00:00: 00 Yes [id number] 600mg Take 1 tablet by mouth every 6 (six) hours as needed for Pain (scale 4-6). [facility] acetaminoph en 500 mg tablet 2021-07 0 00:00: 00 Yes [id number] 1000mg Take 2 tablets by mouth every 8 (eight) hours as needed for Pain. [facility] traZODone 50 mg tablet 2021-07 0 00:00: 00 Yes 50mg Take 1 tablet by mouth at bedtime. [facility] methocarbam oL 500 mg tablet 2021-07 0 00:00: 00 Yes [id number] 500mg Take 1 tablet by mouth 4 (four) times daily as needed (muscle spasms). [facility] ibuprofen 600 mg tablet 2021-07 0 00:00: 00 Yes [id number] 600mg Take 1 tablet by mouth every 6 (six) hours as needed for Pain (scale 4-6). [facility] acetaminoph en 500 mg tablet 2021-07 0 00:00: 00 Yes [id number] 1000mg Take 2 tablets by mouth every 8 (eight) hours as needed for Pain. [facility] traZODone 50 mg tablet 2021-07 0 00:00: 00 Yes 50mg Take 1 tablet by mouth at bedtime. [facility] methocarbam oL 500 mg tablet 2021-07 0-06 00:00: 00 Yes [id number] 500mg Take 1 tablet by mouth 4 (four) times daily as needed (muscle spasms). [facility] ibuprofen 600 mg tablet 2021-07 0- 00:00: 00 Yes [id number] 600mg Take 1 tablet by mouth every 6 (six) hours as needed for Pain (scale 4-6). [facility] acetaminoph en 500 mg tablet 2021-07 0- 00:00: 00 Yes [id number] 1000mg Take 2 tablets by mouth every 8 (eight) hours as needed for Pain. [facility] traZODone 50 mg tablet 2021-07 0- 00:00: 00 Yes 50mg Take 1 tablet by mouth at bedtime. [facility] methocarbam oL 500 mg tablet 2021-07 0 00:00: 00 Yes [id number] 500mg Take 1 tablet by mouth 4 (four) times daily as needed (muscle spasms). [facility] ibuprofen 600 mg tablet 2021-07 0 00:00: 00 Yes [id number] 600mg Take 1 tablet by mouth every 6 (six) hours as needed for Pain (scale 4-6). [facility] acetaminoph en 500 mg tablet 2021-07 0 00:00: 00 Yes [id number] 1000mg Take 2 tablets by mouth every 8 (eight) hours as needed for Pain. [facility] traZODone 50 mg tablet 2021-07 0- 00:00: 00 Yes 50mg Take 1 tablet by mouth at bedtime. [facility] methocarbam oL 500 mg tablet 2021-07 0-06 00:00: 00 Yes [id number] 500mg Take 1 tablet by mouth 4 (four) times daily as needed (muscle spasms). [facility] ibuprofen 600 mg tablet 2021-07 0-06 00:00: 00 Yes [id number] 600mg Take 1 tablet by mouth every 6 (six) hours as needed for Pain (scale 4-6). [facility] acetaminoph en 500 mg tablet 2021-07 0- 00:00: 00 Yes [id number] 1000mg Take 2 tablets by mouth every 8 (eight) hours as needed for Pain. [facility] traZODone 50 mg tablet 2021-07 0- 00:00: 00 Yes 50mg Take 1 tablet by mouth at bedtime. [facility] methocarbam oL 500 mg tablet 2021-07 0- 00:00: 00 Yes [id number] 500mg Take 1 tablet by mouth 4 (four) times daily as needed (muscle spasms). [facility] ibuprofen 600 mg tablet 2021-07 0 00:00: 00 Yes [id number] 600mg Take 1 tablet by mouth every 6 (six) hours as needed for Pain (scale 4-6). [facility] acetaminoph en 500 mg tablet 2021-07 0 00:00: 00 Yes [id number] 1000mg Take 2 tablets by mouth every 8 (eight) hours as needed for Pain. [facility] traZODone 50 mg tablet 2021-07 0 00:00: 00 Yes 50mg Take 1 tablet by mouth at bedtime. [facility] methocarbam oL 500 mg tablet 2021-07 0 00:00: 00 Yes [id number] 500mg Take 1 tablet by mouth 4 (four) times daily as needed (muscle spasms). [facility] ibuprofen 600 mg tablet 2021-07 0 00:00: 00 Yes [id number] 600mg Take 1 tablet by mouth every 6 (six) hours as needed for Pain (scale 4-6). [facility] acetaminoph en 500 mg tablet 2021-07 0- 00:00: 00 Yes [id number] 1000mg Take 2 tablets by mouth every 8 (eight) hours as needed for Pain. [facility] traZODone 50 mg tablet 2021-07 0- 00:00: 00 Yes 50mg Take 1 tablet by mouth at bedtime. [facility] methocarbam oL 500 mg tablet 2021-07 0- 00:00: 00 Yes [id number] 500mg Take 1 tablet by mouth 4 (four) times daily as needed (muscle spasms). [facility] ibuprofen 600 mg tablet 2021-07 0-06 00:00: 00 Yes [id number] 600mg Take 1 tablet by mouth every 6 (six) hours as needed for Pain (scale 4-6). [facility] acetaminoph en 500 mg tablet 2021-07 0-06 00:00: 00 Yes [id number] 1000mg Take 2 tablets by mouth every 8 (eight) hours as needed for Pain. [facility] traZODone 50 mg tablet 2021-07 0-06 00:00: 00 Yes 50mg Take 1 tablet by mouth at bedtime. [facility] methocarbam oL 500 mg tablet 2021-07 0- 00:00: 00 Yes [id number] 500mg Take 1 tablet by mouth 4 (four) times daily as needed (muscle spasms). [facility] ibuprofen 600 mg tablet 2021-07 0 00:00: 00 Yes [id number] 600mg Take 1 tablet by mouth every 6 (six) hours as needed for Pain (scale 4-6). [facility] acetaminoph en 500 mg tablet 2021-07 0 00:00: 00 Yes [id number] 1000mg Take 2 tablets by mouth every 8 (eight) hours as needed for Pain. [facility] traZODone 50 mg tablet 2021-07 0- 00:00: 00 Yes 50mg Take 1 tablet by mouth at bedtime. [facility] methocarbam oL 500 mg tablet 2021-07 0-06 00:00: 00 Yes [id number] 500mg Take 1 tablet by mouth 4 (four) times daily as needed (muscle spasms). [facility] ibuprofen 600 mg tablet 2021-07 0-06 00:00: 00 Yes [id number] 600mg Take 1 tablet by mouth every 6 (six) hours as needed for Pain (scale 4-6). [facility] acetaminoph en 500 mg tablet 2021-07 0-06 00:00: 00 Yes [id number] 1000mg Take 2 tablets by mouth every 8 (eight) hours as needed for Pain. [facility] traZODone 50 mg tablet 2021-07 0- 00:00: 00 Yes 50mg Take 1 tablet by mouth at bedtime. [facility] methocarbam oL 500 mg tablet 2021-07 0- 00:00: 00 Yes [id number] 500mg Take 1 tablet by mouth 4 (four) times daily as needed (muscle spasms). [facility] ibuprofen 600 mg tablet 2021-07 0 00:00: 00 Yes [id number] 600mg Take 1 tablet by mouth every 6 (six) hours as needed for Pain (scale 4-6). [facility] acetaminoph en 500 mg tablet 2021-07 0 00:00: 00 Yes [id number] 1000mg Take 2 tablets by mouth every 8 (eight) hours as needed for Pain. [facility] traZODone 50 mg tablet 2021-07 0 00:00: 00 Yes 50mg Take 1 tablet by mouth at bedtime. [facility] methocarbam oL 500 mg tablet 2021-07 0 00:00: 00 Yes [id number] 500mg Take 1 tablet by mouth 4 (four) times daily as needed (muscle spasms). [facility] ibuprofen 600 mg tablet 2021-07 0 00:00: 00 Yes [id number] 600mg Take 1 tablet by mouth every 6 (six) hours as needed for Pain (scale 4-6). [facility] acetaminoph en 500 mg tablet 2021-07 0 00:00: 00 Yes [id number] 1000mg Take 2 tablets by mouth every 8 (eight) hours as needed for Pain. [facility] traZODone 50 mg tablet 2021-07 0- 00:00: 00 Yes 50mg Take 1 tablet by mouth at bedtime. [facility] methocarbam oL 500 mg tablet 2021-07 0- 00:00: 00 Yes [id number] 500mg Take 1 tablet by mouth 4 (four) times daily as needed (muscle spasms). [facility] ibuprofen 600 mg tablet 2021-07 0- 00:00: 00 Yes [id number] 600mg Take 1 tablet by mouth every 6 (six) hours as needed for Pain (scale 4-6). [facility] acetaminoph en 500 mg tablet 2021-07 0- 00:00: 00 Yes [id number] 1000mg Take 2 tablets by mouth every 8 (eight) hours as needed for Pain. [facility] traZODone 50 mg tablet 2021-07 0- 00:00: 00 Yes 50mg Take 1 tablet by mouth at bedtime. [facility] methocarbam oL 500 mg tablet 2021-07 0- 00:00: 00 Yes [id number] 500mg Take 1 tablet by mouth 4 (four) times daily as needed (muscle spasms). [facility] ibuprofen 600 mg tablet 2021-07 0 00:00: 00 Yes [id number] 600mg Take 1 tablet by mouth every 6 (six) hours as needed for Pain (scale 4-6). [facility] acetaminoph en 500 mg tablet 2021-07 0 00:00: 00 Yes [id number] 1000mg Take 2 tablets by mouth every 8 (eight) hours as needed for Pain. [facility] traZODone 50 mg tablet 2021-07 0 00:00: 00 Yes 50mg Take 1 tablet by mouth at bedtime. [facility] methocarbam oL 500 mg tablet 2021-07 0 00:00: 00 Yes [id number] 500mg Take 1 tablet by mouth 4 (four) times daily as needed (muscle spasms). [facility] ibuprofen 600 mg tablet 2021-07 0 00:00: 00 Yes [id number] 600mg Take 1 tablet by mouth every 6 (six) hours as needed for Pain (scale 4-6). [facility] acetaminoph en 500 mg tablet 2021-07 0- 00:00: 00 Yes [id number] 1000mg Take 2 tablets by mouth every 8 (eight) hours as needed for Pain. [facility] traZODone 50 mg tablet 2021-07 0- 00:00: 00 Yes 50mg Take 1 tablet by mouth at bedtime. [facility] methocarbam oL 500 mg tablet 2021-07 0 00:00: 00 Yes [id number] 500mg Take 1 tablet by mouth 4 (four) times daily as needed (muscle spasms). [facility] ibuprofen 600 mg tablet 2021-07 0 00:00: 00 Yes [id number] 600mg Take 1 tablet by mouth every 6 (six) hours as needed for Pain (scale 4-6). [facility] acetaminoph en 500 mg tablet 2021-07 0 00:00: 00 Yes [id number] 1000mg Take 2 tablets by mouth every 8 (eight) hours as needed for Pain. [facility] traZODone 50 mg tablet 2021-07 0 00:00: 00 Yes 50mg Take 1 tablet by mouth at bedtime. [facility] methocarbam oL 500 mg tablet 2021-07 00:00: 00 Yes [id number] 500mg Take 1 tablet by mouth 4 (four) times daily as needed (muscle spasms). [facility] ibuprofen 600 mg tablet 2021-07 0 00:00: 00 Yes [id number] 600mg Take 1 tablet by mouth every 6 (six) hours as needed for Pain (scale 4-6). [facility] acetaminoph en 500 mg tablet 2021-07 0 00:00: 00 Yes [id number] 1000mg Take 2 tablets by mouth every 8 (eight) hours as needed for Pain. [facility] traZODone 50 mg tablet 2021-07 0 00:00: 00 Yes 50mg Take 1 tablet by mouth at bedtime. [facility] methocarbam oL 500 mg tablet 2021-07 0 00:00: 00 Yes [id number] 500mg Take 1 tablet by mouth 4 (four) times daily as needed (muscle spasms). [facility] ibuprofen 600 mg tablet 2021-07 0 00:00: 00 Yes [id number] 600mg Take 1 tablet by mouth every 6 (six) hours as needed for Pain (scale 4-6). [facility] acetaminoph en 500 mg tablet 2021-07 0 00:00: 00 Yes [id number] 1000mg Take 2 tablets by mouth every 8 (eight) hours as needed for Pain. [facility] traZODone 50 mg tablet 2021-07 0-06 00:00: 00 Yes 50mg Take 1 tablet by mouth at bedtime. [facility] methocarbam oL 500 mg tablet 2021-07 0-06 00:00: 00 Yes [id number] 500mg Take 1 tablet by mouth 4 (four) times daily as needed (muscle spasms). [facility] ibuprofen 600 mg tablet 2021-07 0-06 00:00: 00 Yes [id number] 600mg Take 1 tablet by mouth every 6 (six) hours as needed for Pain (scale 4-6). [facility] acetaminoph en 500 mg tablet 2021-07 0-06 00:00: 00 05-31 00:00 :00 No [id number] 1000mg Take 2 tablets by mouth every 8 (eight) hours as needed for Pain. [facility] traZODone 50 mg tablet 2021-07 0-06 00:00: 00 05-31 00:00 :00 No 50mg Take 1 tablet by mouth at bedtime. [facility] methocarbam oL 500 mg tablet 2021-07 0-06 00:00: 00 05-31 00:00 :00 No [id number] 500mg Take 1 tablet by mouth 4 (four) times daily as needed (muscle spasms). [facility] ibuprofen 600 mg tablet 2021-07 0-06 00:00: 00 05-31 00:00 :00 No [id number] 600mg Take 1 tablet by mouth every 6 (six) hours as needed for Pain (scale 4-6). [facility] acetaminoph en 500 mg tablet 2021-07 0-06 00:00: 00 05-31 00:00 :00 No [id number] 1000mg Take 2 tablets by mouth every 8 (eight) hours as needed for Pain. [facility] traZODone 50 mg tablet 2021-07 0-06 00:00: 00 05-31 00:00 :00 No 50mg Take 1 tablet by mouth at bedtime. [facility] methocarbam oL 500 mg tablet 2021-07 0-06 00:00: 00 05-31 00:00 :00 No [id number] 500mg Take 1 tablet by mouth 4 (four) times daily as needed (muscle spasms). [facility] ibuprofen 600 mg tablet 2021-07 0-06 00:00: 00 05-31 00:00 :00 No [id number] 600mg Take 1 tablet by mouth every 6 (six) hours as needed for Pain (scale 4-6). [facility] acetaminoph en 500 mg tablet 2021-07 0-06 00:00: 00 05-31 00:00 :00 No [id number] 1000mg Take 2 tablets by mouth every 8 (eight) hours as needed for Pain. [facility] traZODone 50 mg tablet 2021-07 0-06 00:00: 00 05-31 00:00 :00 No 50mg Take 1 tablet by mouth at bedtime. [facility] methocarbam oL 500 mg tablet 2021-07 0-06 00:00: 00 05-31 00:00 :00 No [id number] 500mg Take 1 tablet by mouth 4 (four) times daily as needed (muscle spasms). [facility] ibuprofen 600 mg tablet 2021-07 0-06 00:00: 00 05-31 00:00 :00 No [id number] 600mg Take 1 tablet by mouth every 6 (six) hours as needed for Pain (scale 4-6). [facility] acetaminoph en 500 mg tablet 2021-07 0-06 00:00: 00 05-31 00:00 :00 No [id number] 1000mg Take 2 tablets by mouth every 8 (eight) hours as needed for Pain. [facility] traZODone 50 mg tablet 2021-07 0-06 00:00: 00 05-31 00:00 :00 No 50mg Take 1 tablet by mouth at bedtime. [facility] methocarbam oL 500 mg tablet 2021-07 0-06 00:00: 05-31 00:00 :00 No [id number] 500mg Take 1 tablet by mouth 4 (four) times daily as needed (muscle spasms). [facility] ibuprofen 600 mg tablet 2021-07 0-06 00:00: 05-31 00:00 :00 No [id number] 600mg Take 1 tablet by mouth every 6 (six) hours as needed for Pain (scale 4-6). [facility] acetaminoph en 500 mg tablet 2021-07 0-06 00:00: 05-31 00:00 :00 No [id number] 1000mg Take 2 tablets by mouth every 8 (eight) hours as needed for Pain. [facility] traZODone 50 mg tablet 2021-07 0-06 00:00: 05-31 00:00 :00 No 50mg Take 1 tablet by mouth at bedtime. [facility] methocarbam oL 500 mg tablet 2021-07 0-06 00:00: 05-31 00:00 :00 No [id number] 500mg Take 1 tablet by mouth 4 (four) times daily as needed (muscle spasms). [facility] ibuprofen 600 mg tablet 2021-07 0-06 00:00: 05-31 00:00 :00 No [id number] 600mg Take 1 tablet by mouth every 6 (six) hours as needed for Pain (scale 4-6). [facility] acetaminoph en 500 mg tablet 2021-07 0-06 00:00: 05-31 00:00 :00 No [id number] 1000mg Take 2 tablets by mouth every 8 (eight) hours as needed for Pain. [facility] traZODone 50 mg tablet 2021-07 0-06 00:00: 05-31 00:00 :00 No 50mg Take 1 tablet by mouth at bedtime. [facility] methocarbam oL 500 mg tablet 2021-07 0-06 00:00: 00 05-31 00:00 :00 No [id number] 500mg Take 1 tablet by mouth 4 (four) times daily as needed (muscle spasms). [facility] ibuprofen 600 mg tablet 2021-07 0 00:00: 00 05-31 00:00 :00 No [id number] 600mg Take 1 tablet by mouth every 6 (six) hours as needed for Pain (scale 4-6). [facility] atomoxetine (STRATTERA) capsule 40 mg 2021-07 0 16:45: 00 Yes 40mg 40 mg, Oral, DAILY, First dose on Mon04/06/22 at 1145, Until Discontinu ed, Routine
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
Reason for non-formul freddie use: PATIENT CURRENTLY TAKING NONFORMULA RY PRODUCT [facility] lamoTRIgine (LAMICTAL) tablet 25 mg 2021-07 16:45: 00 Yes 25mg 25 mg, Oral, DAILY, First dose on Mon04/06/22 at 1145, Until Discontinu ed, Routine [facility] traMADoL (ULTRAM) tablet 50 mg 2021-07 16:45: 00 Yes 50mg 50 mg, Oral, Q8H, First dose on Mon04/06/22 at 1145, Until Discontinu ed, Routine [facility] oxyCODONE immediate release tablet 5 mg 2021-07 16:31: 53 Yes 5mg 5 mg, Oral, Q4HPRN, Starting on Mon04/06/22 at 1131, Until Discontinu ed, Routine, Pain (scale 7-10)
F aculty member approving Restricted medication : KEAGAN LUO [facility] celecoxib (CELEBREX) capsule 100 mg 2021-07 15:15: 00 Yes 100mg 100 mg, Oral, BID MEALS, First dose on Mon04/06/22 at 1015, Until Discontinu ed, Routine [facility] acetaminoph en (TYLENOL) tablet 1,000 mg 2021-07 005 15:15: 00 Yes 1000mg 1,000 mg, Oral, Q8H, First dose on Mon04/06/22 at 1015, Until Discontinu ed, Routine [facility] tamsulosin (FLOMAX) capsule 0.4 mg 2021-07 005 14:00: 00 Yes .4mg 0.4 mg, Oral, DAILY, First dose on Mon04/06/22 at 0900, Until Discontinu ed, Routine [facility] methocarbam oL (ROBAXIN) tablet 1,000 mg 2021-07 0-05 13:00: 00 Yes 1000mg 1,000 mg, Oral, QID, First dose on Mon04/06/22 at 0800, Until Discontinu ed, Routine [facility] enoxaparin (LOVENOX) injection 30 mg 2021-07 005 01:00: 00 Yes 30mg 30 mg, Subcutaneo us, Q12H, First dose on Mon04/05/22 at 2000, Until Discontinu ed, Routine [facility] methocarbam oL (ROBAXIN) injection 1,000 mg 2021-07 0-04 19:00: 00 04-06 11:05 :13 No 1000mg 1,000 mg, Intravenou s, Q8H, First dose on Mon04/05/22 at 1400, Until Discontinu ed, Routine [facility] acetaminoph en ADULT (OFIRMEV) injection 1,000 mg 2021-07 0-04 19:00: 00 04-06 14:37 :00 No 1000mg 1,000 mg, IV Infusion, at 400 mL/hr Administer over 15 Minutes, Q8H, 3 doses, First dose on Mon04/05/22 at 1400, Last dose on Mon04/06/22 at 0600, Routine
Indicatio n: Perioperat janna Patient [facility] polyethylen e glycol 3350 powder 17 g 2021-07 0-04 14:15: 00 Yes 17g 17 g, Oral, DAILY, First dose on Mon04/05/22 at 0915, Until Discontinu ed, Routine [facility] ibuprofen (IBU) tablet 600 mg 2021-07 0-04 13:00: 00 04-05 14:14 :08 No 600mg 600 mg, Oral, TID MEALS, First dose on Mon04/05/22 at 0800, Until Discontinu ed, [facility] (TYLENOL[facility] tablet 650 mg 2021-07 004 05:00: 00 04-05 15:12 :14 No 650mg 650 mg, Oral, Q6H, First dose on Mon04/05/22 at 0000, Until Discontinu ed, Routine [facility] methocarbam oL (ROBAXIN) tablet 500 mg 2021-07 0 01:00: 00 04-05 15:09 :36 No 500mg 500 mg, Oral, QID, First dose on Mon04/04/22 at 2000, Until Discontinu ed, Routine [facility] morpHINE (2 mg/mL) injection 2 mg 2021-07 23:22: 51 04-05 14:14 :08 No 2mg 2 mg, Slow IV Push, Q4HPRN, Starting on Mon04/04/22 at 1822, Until Mon04/05/22 at 0914, Routine, Pain (scale 7-10) [facility] HYDROcodone -acetaminop hen (NORCO 5) 5-325 mg tablet 1 tablet 2021-07 23:22: 51 04-05 14:14 :08 No 1{tbl} 1 tablet, Oral, Q6HPRN, Starting on Mon04/04/22 at 1822, Until Mon04/05/22 at 0914, Routine, Pain (scale 4-6) [facility] FENTanyl PF (SUBLIMAZE (PF)) injection 50 mcg 2021-07 0 22:00: 00 04-04 21:05 :00 No 50ug 50 mcg, Slow IV Push, ONCE, 1 dose, On Mon04/04/22 at 1700, Routine [facility] FENTanyl PF (SUBLIMAZE (PF)) injection 50 mcg 2021-07 0 20:30: 00 04-04 19:32 :00 No 50ug 50 mcg, Slow IV Push, ONCE, 1 dose, On Mon04/04/22 at 1530, Routine [facility] ondansetron (ZOFRAN (PF)) injection 4 mg 2021-07 19:45: 00 04-04 19:32 :00 No 4mg 4 mg, Slow IV Push, ONCE, 1 dose, On Mon04/04/22 at 1445, ARLEN [facility] iopamidol (ISOVUE 370-500 mL) injection 80 mL 2021-07 19:00: 00 04-04 18:49 :00 No [id number] 80mL 80 mL, Intravenou s, ONCE, 1 dose, On Mon04/04/22 at 1400, Routine [facility] NaCl 0.9% (NS) bolus infusion 1,000 mL 04-01 05:15: 00 04-01 06:27 :00 No 1000mL at 999 mL/hr, 1,000 mL, IV Infusion, ONCE, 1 dose, On Mon04/01/22 at 0015, STAT [facility] ondansetron (ZOFRAN (PF)) injection 4 mg 04-01 04:15: 04-01 04:36 :00 No 4mg 4 mg, Slow IV Push, ONCE, 1 dose, On Rnoel 03/31/22 at 2315, ARLEN [facility] ARIPiprazol e (ABILIFY MAINTENA) 300 mg sers 03-17 00:00: 00 Yes [id number] 300mg 300 mg by Intramuscu lar route once every month. [facility] ARIPiprazol e (ABILIFY MAINTENA) 300 mg sers 03-17 00:00: 00 Yes 300mg 300 mg by Intramuscu lar route once every month. [facility] ARIPiprazol e (ABILIFY MAINTENA) 300 mg sers 03-17 00:00: 00 Yes [id number] 300mg 300 mg by Intramuscu lar route once every month. [facility] ARIPiprazol e (ABILIFY MAINTENA) 300 mg sers 03-17 00:00: 00 Yes 300mg 300 mg by Intramuscu lar route once every month. [facility] ARIPiprazol e (ABILIFY MAINTENA) 300 mg sers 0 -15 00:00: 00 Yes [id number] 300mg 300 mg by Intramuscu lar route once every month. [facility] ARIPiprazol e (ABILIFY MAINTENA) 300 mg sers 0 9-15 00:00: 00 Yes 300mg 300 mg by Intramuscu lar route once every month. [facility] (ABILIFY MAINTENA) 300 mg sers 0 -15 00:00: 00 Yes [id number] 300mg 300 mg by Intramuscu lar route once every month. [facility] ARIPiprazol e (ABILIFY MAINTENA) 300 mg sers 0 -15 00:00: 00 Yes 300mg 300 mg by Intramuscu lar route once every month. [facility] ARIPiprazol e (ABILIFY MAINTENA) 300 mg sers 0 -15 00:00: 00 Yes [id number] 300mg 300 mg by Intramuscu lar route once every month. [facility] ARIPiprazol e (ABILIFY MAINTENA) 300 mg sers -15 00:00: 00 Yes 300mg 300 mg by Intramuscu lar route once every month. [facility] ARIPiprazol e (ABILIFY MAINTENA) 300 mg sers 0 -15 00:00: 00 Yes [id number] 300mg 300 mg by Intramuscu lar route once every month. [facility] ARIPiprazol e (ABILIFY MAINTENA) 300 mg sers 0 -15 00:00: 00 Yes 300mg 300 mg by Intramuscu lar route once every month. [facility] ARIPiprazol e (ABILIFY MAINTENA) 300 mg sers 0 -15 00:00: 00 Yes [id number] 300mg 300 mg by Intramuscu lar route once every month. [facility] ARIPiprazol e (ABILIFY MAINTENA) 300 mg sers 0 9-15 00:00: 00 Yes 300mg 300 mg by Intramuscu lar route once every month. [facility] ARIPiprazol e (ABILIFY MAINTENA) 300 mg sers 0 9-15 00:00: 00 Yes [id number] 300mg 300 mg by Intramuscu lar route once every month. [facility] ARIPiprazol e (ABILIFY MAINTENA) 300 mg sers 0 -15 00:00: 00 Yes [id number] 300mg 300 mg by Intramuscu lar route once every month. [facility] ARIPiprazol e (ABILIFY MAINTENA) 300 mg sers -15 00:00: 00 Yes [id number] 300mg 300 mg by Intramuscu lar route once every month. [facility] ARIPiprazol e (ABILIFY MAINTENA) 300 mg sers -15 00:00: 00 Yes [id number] 300mg 300 mg by Intramuscu lar route once every month. [facility] ARIPiprazol e (ABILIFY MAINTENA) 300 mg sers 0 -15 00:00: 00 Yes [id number] 300mg 300 mg by Intramuscu lar route once every month. [facility] ARIPiprazol e (ABILIFY MAINTENA) 300 mg sers 0 9-15 00:00: 00 Yes [id number] 300mg 300 mg by Intramuscu lar route once every month. [facility] ARIPiprazol e (ABILIFY MAINTENA) 300 mg sers 0 9-15 00:00: 00 04-07 00:00 :00 No 300mg 300 mg by Intramuscu lar route once every month. [facility] ARIPiprazol e (ABILIFY MAINTENA) 300 mg sers 0 9-15 00:00: 00 04-07 00:00 :00 No 300mg 300 mg by Intramuscu lar route once every month. [facility] ARIPiprazol e (ABILIFY MAINTENA) 300 mg sers 9-15 00:00: 00 04-07 00:00 :00 No 300mg 300 mg by Intramuscu lar route once every month. [facility] ARIPiprazol e (ABILIFY MAINTENA) 300 mg sers 9-15 00:00: 00 04-07 00:00 :00 No 300mg 300 mg by Intramuscu lar route once every month. [facility] ARIPiprazol e (ABILIFY MAINTENA) 300 mg sers 9-15 00:00: 00 04-07 00:00 :00 No 300mg 300 mg by Intramuscu lar route once every month. [facility] ARIPiprazol e (ABILIFY MAINTENA) 300 mg sers -15 00:00: 00 04-07 00:00 :00 No 300mg 300 mg by Intramuscu lar route once every month. [facility] ARIPiprazol e (ABILIFY MAINTENA) 300 mg sers 9-15 00:00: 00 04-07 00:00 :00 No 300mg 300 mg by Intramuscu lar route once every month. [facility] ARIPiprazol e (ABILIFY MAINTENA) 300 mg sers 9-15 00:00: 00 04-07 00:00 :00 No 300mg 300 mg by Intramuscu lar route once every month. [facility] ARIPiprazol e (ABILIFY MAINTENA) 300 mg sers 9-15 00:00: 00 04-07 00:00 :00 No 300mg 300 mg by Intramuscu lar route once every month. [facility] ARIPiprazol e (ABILIFY MAINTENA) 300 mg sers 9-15 00:00: 00 04-07 00:00 :00 No 300mg 300 mg by Intramuscu lar route once every month. [facility] ARIPiprazol e (ABILIFY MAINTENA) 300 mg sers 9-15 00:00: 00 04-07 00:00 :00 No 300mg 300 mg by Intramuscu lar route once every month. [facility] ARIPiprazol e (ABILIFY MAINTENA) 300 mg sers 9-15 00:00: 00 04-07 00:00 :00 No 300mg 300 mg by Intramuscu lar route once every month. [facility] ARIPiprazol e (ABILIFY MAINTENA) 300 mg sers 9-15 00:00: 00 04-07 00:00 :00 No 300mg 300 mg by Intramuscu lar route once every month. [facility] ARIPiprazol e (ABILIFY MAINTENA) 300 mg sers 9-15 00:00: 00 04-07 00:00 :00 No 300mg 300 mg by Intramuscu lar route once every month. [facility] ARIPiprazol e (ABILIFY MAINTENA) 300 mg sers 9-15 00:00: 00 04-07 00:00 :00 No 300mg 300 mg by Intramuscu lar route once every month. [facility] ARIPiprazol e (ABILIFY MAINTENA) 300 mg sers 9-15 00:00: 00 04-07 00:00 :00 No 300mg 300 mg by Intramuscu lar route once every month. [facility] ARIPiprazol e (ABILIFY MAINTENA) 300 mg sers 9-15 00:00: 00 04-07 00:00 :00 No 300mg 300 mg by Intramuscu lar route once every month. [facility] ARIPiprazol e (ABILIFY MAINTENA) 300 mg sers 9-15 00:00: 00 04-07 00:00 :00 No 300mg 300 mg by Intramuscu lar route once every month. [facility] ARIPiprazol e 10 mg tablet 2-0 9-08 00:00: 00 04-10 04:59 :00 No [id number] 10mg Take 1 tablet by mouth in the morning for 30 days. [facility] ARIPiprazol e 10 mg tablet 2-0 9-08 00:00: 00 04-10 04:59 :00 No [id number] 10mg Take 1 tablet by mouth in the morning for 30 days. [facility] ARIPiprazol e 10 mg tablet 2-0 9-08 00:00: 00 04-10 04:59 :00 No [id number] 10mg Take 1 tablet by mouth in the morning for 30 days. [facility] ARIPiprazol e 10 mg tablet 2021-0 9-08 00:00: 00 04-10 04:59 :00 No [id number] 10mg Take 1 tablet by mouth in the morning for 30 days. [facility] ARIPiprazol e 10 mg tablet 2021-0 9-08 00:00: 00 04-10 04:59 :00 No [id number] 10mg Take 1 tablet by mouth in the morning for 30 days. [facility] ARIPiprazol e 10 mg tablet 2-0 9-08 00:00: 00 04-10 04:59 :00 No [id number] 10mg Take 1 tablet by mouth in the morning for 30 days. [facility] ARIPiprazol e 10 mg tablet 2-0 9-08 00:00: 00 04-10 04:59 :00 No [id number] 10mg Take 1 tablet by mouth in the morning for 30 days. [facility] ARIPiprazol e 10 mg tablet 2-0 9-08 00:00: 00 04-10 04:59 :00 No [id number] 10mg Take 1 tablet by mouth in the morning for 30 days. [facility] ARIPiprazol e 10 mg tablet 2-0 9-08 00:00: 00 04-10 04:59 :00 No [id number] 10mg Take 1 tablet by mouth in the morning for 30 days. [facility] ARIPiprazol e 10 mg tablet 2-0 9-08 00:00: 00 04-10 04:59 :00 No [id number] 10mg Take 1 tablet by mouth in the morning for 30 days. [facility] ARIPiprazol e 10 mg tablet 2-0 9-08 00:00: 00 04-10 04:59 :00 No [id number] 10mg Take 1 tablet by mouth in the morning for 30 days. [facility] ARIPiprazol e 10 mg tablet 2021-0 9-08 00:00: 00 04-10 04:59 :00 No [id number] 10mg Take 1 tablet by mouth in the morning for 30 days. [facility] ARIPiprazol e 10 mg tablet 2021-0 9-08 00:00: 00 04-10 04:59 :00 No [id number] 10mg Take 1 tablet by mouth in the morning for 30 days. [facility] ARIPiprazol e 10 mg tablet 2-0 9-08 00:00: 00 04-10 04:59 :00 No [id number] 10mg Take 1 tablet by mouth in the morning for 30 days. [facility] ARIPiprazol e 10 mg tablet 2-0 9-08 00:00: 00 04-10 04:59 :00 No [id number] 10mg Take 1 tablet by mouth in the morning for 30 days. [facility] ARIPiprazol e 10 mg tablet 2-0 9-08 00:00: 00 04-10 04:59 :00 No [id number] 10mg Take 1 tablet by mouth in the morning for 30 days. [facility] ARIPiprazol e 10 mg tablet 2-0 9-08 00:00: 00 04-10 04:59 :00 No [id number] 10mg Take 1 tablet by mouth in the morning for 30 days. [facility] ARIPiprazol e 10 mg tablet 2-0 9-08 00:00: 00 04-10 04:59 :00 No [id number] 10mg Take 1 tablet by mouth in the morning for 30 days. [facility] ARIPiprazol e 10 mg tablet 2-0 9-08 00:00: 00 04-10 04:59 :00 No [id number] 10mg Take 1 tablet by mouth in the morning for 30 days. [facility] ARIPiprazol e 10 mg tablet 2-0 9-08 00:00: 00 04-10 04:59 :00 No [id number] 10mg Take 1 tablet by mouth in the morning for 30 days. [facility] ARIPiprazol e 10 mg tablet 2-0 9-08 00:00: 00 04-10 04:59 :00 No [id number] 10mg Take 1 tablet by mouth in the morning for 30 days. [facility] ARIPiprazol e 10 mg tablet 2021-0 9-08 00:00: 00 04-10 04:59 :00 No [id number] 10mg Take 1 tablet by mouth in the morning for 30 days. [facility] ARIPiprazol e 10 mg tablet 2021-0 9-08 00:00: 00 04-10 04:59 :00 No [id number] 10mg Take 1 tablet by mouth in the morning for 30 days. [facility] ARIPiprazol e 10 mg tablet 2-0 9-08 00:00: 00 04-10 04:59 :00 No [id number] 10mg Take 1 tablet by mouth in the morning for 30 days. [facility] ARIPiprazol e 10 mg tablet 2-0 9-08 00:00: 00 04-10 04:59 :00 No [id number] 10mg Take 1 tablet by mouth in the morning for 30 days. [facility] ARIPiprazol e 10 mg tablet 2-0 9-08 00:00: 00 04-10 04:59 :00 No [id number] 10mg Take 1 tablet by mouth in the morning for 30 days. [facility] ARIPiprazol e 10 mg tablet 2-0 9-08 00:00: 00 04-10 04:59 :00 No [id number] 10mg Take 1 tablet by mouth in the morning for 30 days. [facility] tablet 03-10 00:00: 00 04-10 04:59 :00 No [id number] 10mg Take 1 tablet by mouth in the morning for 30 days. [facility] ARIPiprazol e (ABILIFY MAINTENA) 300 mg sers 03-09 00:00: 00 06-08 05:59 :00 No [id number] 300mg 300 mg by Intramuscu lar route once every month for 90 days. [facility] ARIPiprazol e (ABILIFY MAINTENA) 300 mg sers 03-09 00:00: 00 03-17 00:00 :00 No [id number] 300mg 300 mg by Intramuscu lar route once every month for 90 days. [facility] ARIPiprazol e (ABILIFY MAINTENA) 300 mg sers 03-09 00:00: 00 03-17 00:00 :00 No [id number] 300mg 300 mg by Intramuscu lar route once every month for 90 days. [facility] ARIPiprazol e (ABILIFY MAINTENA) 300 mg sers 03-09 00:00: 00 03-17 00:00 :00 No [id number] 300mg 300 mg by Intramuscu lar route once every month for 90 days. [facility] ARIPiprazol e (ABILIFY MAINTENA) 300 mg sers 03-09 00:00: 00 03-17 00:00 :00 No [id number] 300mg 300 mg by Intramuscu lar route once every month for 90 days. [facility] ARIPiprazol e (ABILIFY MAINTENA) 300 mg sers 03-09 00:00: 00 03-17 00:00 :00 No [id number] 300mg 300 mg by Intramuscu lar route once every month for 90 days. [facility] QUEtiapine 50 mg tablet 2021-0 718 00:00: 00 03-10 00:00 :00 No [id number] 50mg Take 1 tablet by mouth in the morning and 1 tablet in the evening. Do all this for 60 days. [facility] QUEtiapine 50 mg tablet 0 718 00:00: 00 03-10 00:00 :00 No [id number] 50mg Take 1 tablet by mouth in the morning and 1 tablet in the evening. Do all this for 60 days. [facility] QUEtiapine 50 mg tablet 0 18 00:00: 00 03-10 00:00 :00 No [id number] 50mg Take 1 tablet by mouth in the morning and 1 tablet in the evening. Do all this for 60 days. [facility] QUEtiapine 50 mg tablet 2021-0 18 00:00: 00 03-10 00:00 :00 No [id number] 50mg Take 1 tablet by mouth in the morning and 1 tablet in the evening. Do all this for 60 days. [facility] QUEtiapine 50 mg tablet 0 18 00:00: 00 03-10 00:00 :00 No [id number] 50mg Take 1 tablet by mouth in the morning and 1 tablet in the evening. Do all this for 60 days. [facility] lithium carbonate CR 300 mg SR tablet 0 12-07 00:00: 00 03-08 04:59 :00 No [id number] 300mg Take 1 tablet by mouth at bedtime for 90 days. [facility] lithium carbonate CR 450 mg SR tablet 2021-0 12-07 00:00: 00 03-08 04:59 :00 No [id number] 450mg Take 1 tablet by mouth every morning for 90 days. [facility] lithium carbonate CR 300 mg SR tablet 2021-0 12-07 00:00: 00 03-08 04:59 :00 No [id number] 300mg Take 1 tablet by mouth at bedtime for 90 days. [facility] lithium carbonate CR 450 mg SR tablet 12-07 00:00: 00 03-08 04:59 :00 No [id number] 450mg Take 1 tablet by mouth every morning for 90 days. [facility] lithium carbonate CR 300 mg SR tablet 12-07 00:00: 00 03-08 04:59 :00 No [id number] 300mg Take 1 tablet by mouth at bedtime for 90 days. [facility] lithium carbonate CR 450 mg SR tablet 12-07 00:00: 00 03-08 04:59 :00 No [id number] 450mg Take 1 tablet by mouth every morning for 90 days. [facility] lithium carbonate CR 300 mg SR tablet 12-07 00:00: 00 03-08 04:59 :00 No [id number] 300mg Take 1 tablet by mouth at bedtime for 90 days. [facility] lithium carbonate CR 450 mg SR tablet 12-07 00:00: 00 03-08 04:59 :00 No [id number] 450mg Take 1 tablet by mouth every morning for 90 days. [facility] lithium carbonate CR 300 mg SR tablet 12-07 00:00: 00 03-08 04:59 :00 No [id number] 300mg Take 1 tablet by mouth at bedtime for 90 days. [facility] lithium carbonate CR 450 mg SR tablet 12-07 00:00: 00 03-08 04:59 :00 No [id number] 450mg Take 1 tablet by mouth every morning for 90 days. [facility] miSOPROStoL 200 mcg tablet 10-29 00:00: 00 Yes [id number] 200ug Take 1 tablet by mouth SEE-INSTRU CTIONS. Take one tab the night before and one tab the morning of procedure [facility] miSOPROStoL 200 mcg tablet 10-29 00:00: 00 Yes [id number] 200ug Take 1 tablet by mouth SEE-INSTRU CTIONS. Take one tab the night before and one tab the morning of procedure [facility] miSOPROStoL 200 mcg tablet 10-29 00:00: 00 Yes [id number] 200ug Take 1 tablet by mouth SEE-INSTRU CTIONS. Take one tab the night before and one tab the morning of procedure [facility] miSOPROStoL 200 mcg tablet 10-29 00:00: 00 Yes [id number] 200ug Take 1 tablet by mouth SEE-INSTRU CTIONS. Take one tab the night before and one tab the morning of procedure [facility] miSOPROStoL 200 mcg tablet 10-29 00:00: 00 Yes [id number] 200ug Take 1 tablet by mouth SEE-INSTRU CTIONS. Take one tab the night before and one tab the morning of procedure [facility] miSOPROStoL 200 mcg tablet 10-29 00:00: 00 Yes [id number] 200ug Take 1 tablet by mouth SEE-INSTRU CTIONS. Take one tab the night before and one tab the morning of procedure [facility] miSOPROStoL 200 mcg tablet 10-29 00:00: 00 Yes [id number] 200ug Take 1 tablet by mouth SEE-INSTRU CTIONS. Take one tab the night before and one tab the morning of procedure [facility] miSOPROStoL 200 mcg tablet 10-29 00:00: 00 Yes [id number] 200ug Take 1 tablet by mouth SEE-INSTRU CTIONS. Take one tab the night before and one tab the morning of procedure [facility] miSOPROStoL 200 mcg tablet 10-29 00:00: 00 Yes [id number] 200ug Take 1 tablet by mouth SEE-INSTRU CTIONS. Take one tab the night before and one tab the morning of procedure [facility] miSOPROStoL 200 mcg tablet 10-29 00:00: 00 04-07 00:00 :00 No [id number] 200ug Take 1 tablet by mouth SEE-INSTRU CTIONS. Take one tab the night before and one tab the morning of procedure [facility] miSOPROStoL 200 mcg tablet 10-29 00:00: 00 04-07 00:00 :00 No [id number] 200ug Take 1 tablet by mouth SEE-INSTRU CTIONS. Take one tab the night before and one tab the morning of procedure [facility] miSOPROStoL 200 mcg tablet 2021-0 10-29 00:00: 00 04-07 00:00 :00 No [id number] 200ug Take 1 tablet by mouth SEE-INSTRU CTIONS. Take one tab the night before and one tab the morning of procedure [facility] miSOPROStoL 200 mcg tablet 2021-0 10-29 00:00: 00 04-07 00:00 :00 No [id number] 200ug Take 1 tablet by mouth SEE-INSTRU CTIONS. Take one tab the night before and one tab the morning of procedure [facility] miSOPROStoL 200 mcg tablet 10-29 00:00: 00 04-07 00:00 :00 No [id number] 200ug Take 1 tablet by mouth SEE-INSTRU CTIONS. Take one tab the night before and one tab the morning of procedure [facility] miSOPROStoL 200 mcg tablet 2021-0 10-29 00:00: 00 04-07 00:00 :00 No [id number] 200ug Take 1 tablet by mouth SEE-INSTRU CTIONS. Take one tab the night before and one tab the morning of procedure [facility] miSOPROStoL 200 mcg tablet 2021-10-29 00:00: 00 04-07 00:00 :00 No [id number] 200ug Take 1 tablet by mouth SEE-INSTRU CTIONS. Take one tab the night before and one tab the morning of procedure [facility] miSOPROStoL 200 mcg tablet 2021-0 29 00:00: 00 04-07 00:00 :00 No [id number] 200ug Take 1 tablet by mouth SEE-INSTRU CTIONS. Take one tab the night before and one tab the morning of procedure [facility] miSOPROStoL 200 mcg tablet 2021-0 429 00:00: 00 04-07 00:00 :00 No [id number] 200ug Take 1 tablet by mouth SEE-INSTRU CTIONS. Take one tab the night before and one tab the morning of procedure [facility] miSOPROStoL 200 mcg tablet 2021-0 10-29 00:00: 00 04-07 00:00 :00 No [id number] 200ug Take 1 tablet by mouth SEE-INSTRU CTIONS. Take one tab the night before and one tab the morning of procedure [facility] miSOPROStoL 200 mcg tablet 2021-0 10-29 00:00: 00 04-07 00:00 :00 No [id number] 200ug Take 1 tablet by mouth SEE-INSTRU CTIONS. Take one tab the night before and one tab the morning of procedure [facility] miSOPROStoL 200 mcg tablet 2021-10-29 00:00: 00 04-07 00:00 :00 No [id number] 200ug Take 1 tablet by mouth SEE-INSTRU CTIONS. Take one tab the night before and one tab the morning of procedure [facility] miSOPROStoL 200 mcg tablet 2021-0 10-29 00:00: 00 04-07 00:00 :00 No [id number] 200ug Take 1 tablet by mouth SEE-INSTRU CTIONS. Take one tab the night before and one tab the morning of procedure [facility] miSOPROStoL 200 mcg tablet 2021-10-29 00:00: 00 04-07 00:00 :00 No [id number] 200ug Take 1 tablet by mouth SEE-INSTRU CTIONS. Take one tab the night before and one tab the morning of procedure [facility] miSOPROStoL 200 mcg tablet 2021-0 10-29 00:00: 00 04-07 00:00 :00 No [id number] 200ug Take 1 tablet by mouth SEE-INSTRU CTIONS. Take one tab the night before and one tab the morning of procedure [facility] miSOPROStoL 200 mcg tablet 2021-0 10-29 00:00: 00 04-07 00:00 :00 No [id number] 200ug Take 1 tablet by mouth SEE-INSTRU CTIONS. Take one tab the night before and one tab the morning of procedure [facility] miSOPROStoL 200 mcg tablet 2021-0 4-29 00:00: 00 04-07 00:00 :00 No [id number] 200ug Take 1 tablet by mouth SEE-INSTRU CTIONS. Take one tab the night before and one tab the morning of procedure [facility] miSOPROStoL 200 mcg tablet 10-29 00:00: 00 04-07 00:00 :00 No [id number] 200ug Take 1 tablet by mouth SEE-INSTRU CTIONS. Take one tab the night before and one tab the morning of procedure [facility] Immunizations Ordered Immunization Name Filled Immunization Name Date Status Comments Source SARS-COV-2 COVID-19 MIKE-SUCROSE VACCINE 12 YRS+, BIVALENT 0.3ML, IM, (PFIZER [employer]ITA [employer]ER) 2022-03-17 00:00:00 Completed [facility] SARS-COV-2 COVID-19 MIKE-SUCROSE VACCINE 12 YRS+, BIVALENT 0.3ML, IM, (PFIZER ARITA TOP BOOSTER) 2022-03-17 00:00:00 Completed [facility] SARS-COV-2 COVID-19 MIKE-SUCROSE VACCINE 12 YRS+, BIVALENT 0.3ML, IM, (PFIZER ARITA TOP BOOSTER) 2022-03-17 00:00:00 Completed [facility] SARS-COV-2 COVID-19 MIKE-SUCROSE VACCINE 12 YRS+, BIVALENT 0.3ML, IM, (PFIZER ARITA TOP BOOSTER) 2022-03-17 00:00:00 Completed [facility] SARS-COV-2 COVID-19 MIKE-SUCROSE VACCINE 12 YRS+, BIVALENT 0.3ML, IM, (PFIZER ARITA TOP BOOSTER) 2022-03-17 00:00:00 Completed [facility] SARS-COV-2 COVID-19 MIKE-SUCROSE VACCINE 12 YRS+, BIVALENT 0.3ML, IM, (PFIZER ARITA TOP BOOSTER) 2022-03-17 00:00:00 Completed [facility] SARS-COV-2 COVID-19 MIKE-SUCROSE VACCINE 12 YRS+, BIVALENT 0.3ML, IM, (PFIZER ARITA TOP BOOSTER) 2022-03-17 00:00:00 Completed [facility] SARS-COV-2 COVID-19 MIKE-SUCROSE VACCINE 12 YRS+, BIVALENT 0.3ML, IM, (PFIZER ARITA TOP BOOSTER) 2022-03-17 00:00:00 Completed [facility] SARS-COV-2 COVID-19 MIKE-SUCROSE VACCINE 12 YRS+, BIVALENT 0.3ML, IM, (PFIZER ARITA TOP BOOSTER) 2022-03-17 00:00:00 Completed [facility] SARS-COV-2 COVID-19 MIKE-SUCROSE VACCINE 12 YRS+, BIVALENT 0.3ML, IM, (PFIZER ARITA TOP BOOSTER) 2022-03-17 00:00:00 Completed [facility] SARS-COV-2 COVID-19 MIKE-SUCROSE VACCINE 12 YRS+, BIVALENT 0.3ML, IM, (PFIZER ARITA TOP BOOSTER) 2022-03-17 00:00:00 Completed [facility] SARS-COV-2 COVID-19 MIKE-SUCROSE VACCINE 12 YRS+, BIVALENT 0.3ML, IM, (PFIZER ARITA TOP BOOSTER) 2022-03-17 00:00:00 Completed [facility] SARS-COV-2 COVID-19 MIKE-SUCROSE VACCINE 12 YRS+, BIVALENT 0.3ML, IM, (PFIZER ARITA TOP BOOSTER) 2022-03-17 00:00:00 Completed [facility] SARS-COV-2 COVID-19 MIKE-SUCROSE VACCINE 12 YRS+, BIVALENT 0.3ML, IM, (PFIZER ARITA TOP BOOSTER) 2022-03-17 00:00:00 Completed [facility] SARS-COV-2 COVID-19 MIKE-SUCROSE VACCINE 12 YRS+, BIVALENT 0.3ML, IM, (PFIZER ARITA TOP BOOSTER) 2022-03-17 00:00:00 Completed [facility] SARS-COV-2 COVID-19 MIKE-SUCROSE VACCINE 12 YRS+, BIVALENT 0.3ML, IM, (PFIZER ARITA TOP BOOSTER) 2022-03-17 00:00:00 Completed [facility] SARS-COV-2 COVID-19 MIKE-SUCROSE VACCINE 12 YRS+, BIVALENT 0.3ML, IM, (PFIZER ARITA TOP BOOSTER) 2022-03-17 00:00:00 Completed [facility] SARS-COV-2 COVID-19 MIKE-SUCROSE VACCINE 12 YRS+, BIVALENT 0.3ML, IM, (PFIZER ARITA TOP BOOSTER) 2022-03-17 00:00:00 Completed [facility] SARS-COV-2 COVID-19 MIKE-SUCROSE VACCINE 12 YRS+, BIVALENT 0.3ML, IM, (PFIZER ARITA TOP BOOSTER) 2022-03-17 00:00:00 Completed [facility] SARS-COV-2 COVID-19 MIKE-SUCROSE VACCINE 12 YRS+, BIVALENT 0.3ML, IM, (PFIZER ARITA TOP BOOSTER) 2022-03-17 00:00:00 Completed [facility] SARS-COV-2 COVID-19 MIKE-SUCROSE VACCINE 12 YRS+, BIVALENT 0.3ML, IM, (PFIZER ARITA TOP BOOSTER) 2022-03-17 00:00:00 Completed [facility] SARS-COV-2 COVID-19 MIKE-SUCROSE VACCINE 12 YRS+, BIVALENT 0.3ML, IM, (PFIZER ARITA TOP BOOSTER) 2022-03-17 00:00:00 Completed [facility] SARS-COV-2 COVID-19 MIKE-SUCROSE VACCINE 12 YRS+, BIVALENT 0.3ML, IM, (PFIZER ARITA TOP BOOSTER) 2022-03-17 00:00:00 Completed [facility] SARS-COV-2 COVID-19 MIKE-SUCROSE VACCINE 12 YRS+, BIVALENT 0.3ML, IM, (PFIZER ARITA TOP BOOSTER) 2022-03-17 00:00:00 Completed [facility] SARS-COV-2 COVID-19 MIKE-SUCROSE VACCINE 12 YRS+, BIVALENT 0.3ML, IM, (PFIZER ARITA TOP BOOSTER) 2022-03-17 00:00:00 Completed [facility] SARS-COV-2 COVID-19 MIKE-SUCROSE VACCINE 12 YRS+, BIVALENT 0.3ML, IM, (PFIZER ARITA TOP BOOSTER) 2022-03-17 00:00:00 Completed [facility] SARS-COV-2 COVID-19 MIKE-SUCROSE VACCINE 12 YRS+, BIVALENT 0.3ML, IM, (PFIZER ARITA TOP BOOSTER) 2022-03-17 00:00:00 Completed [facility] SARS-COV-2 COVID-19 MIKE-SUCROSE VACCINE 12 YRS+, BIVALENT 0.3ML, IM, (PFIZER ARITA TOP BOOSTER) 2022-03-17 00:00:00 Completed [facility] SARS-COV-2 COVID-19 MIKE-SUCROSE VACCINE 12 YRS+, BIVALENT 0.3ML, IM, (PFIZER ARITA TOP BOOSTER) 2022-03-17 00:00:00 Completed [facility] SARS-COV-2 COVID-19 MIKE-SUCROSE VACCINE 12 YRS+, BIVALENT 0.3ML, IM, (PFIZER ARITA TOP BOOSTER) 2022-03-17 00:00:00 Completed [facility] SARS-COV-2 COVID-19 MIKE-SUCROSE VACCINE 12 YRS+, BIVALENT 0.3ML, IM, (PFIZER ARITA TOP BOOSTER) 2022-03-17 00:00:00 Completed [facility] SARS-COV-2 COVID-19 MIKE-SUCROSE VACCINE 12 YRS+, BIVALENT 0.3ML, IM, (PFIZER ARITA TOP BOOSTER) 2022-03-17 00:00:00 Completed [facility] SARS-COV-2 COVID-19 MIKE-SUCROSE VACCINE 12 YRS+, BIVALENT 0.3ML, IM, (PFIZER ARITA TOP BOOSTER) 2022-03-17 00:00:00 Completed [facility] SARS-COV-2 COVID-19 MIKE-SUCROSE VACCINE 12 YRS+, BIVALENT 0.3ML, IM, (PFIZER ARITA TOP BOOSTER) 2022-03-17 00:00:00 Completed [facility] SARS-COV-2 COVID-19 MIKE-SUCROSE VACCINE 12 YRS+, BIVALENT 0.3ML, IM, (PFIZER ARITA TOP BOOSTER) 2022-03-17 00:00:00 Completed [facility] SARS-COV-2 COVID-19 MIKE-SUCROSE VACCINE 12 YRS+, BIVALENT 0.3ML, IM, (PFIZER ARITA TOP BOOSTER) 2022-03-17 00:00:00 Completed [facility] SARS-COV-2 COVID-19 MIKE-SUCROSE VACCINE 12 YRS+, BIVALENT 0.3ML, IM, (PFIZER ARITA TOP BOOSTER) 2022-03-17 00:00:00 Completed [facility] SARS-COV-2 COVID-19 MIKE-SUCROSE VACCINE 12 YRS+, BIVALENT 0.3ML, IM, (PFIZER ARITA TOP BOOSTER) 2022-03-17 00:00:00 Completed [facility] SARS-COV-2 COVID-19 MIKE-SUCROSE VACCINE 12 YRS+, BIVALENT 0.3ML, IM, (PFIZER ARITA TOP BOOSTER) 2022-03-17 00:00:00 Completed [facility] SARS-COV-2 COVID-19 MIKE-SUCROSE VACCINE 12 YRS+, BIVALENT 0.3ML, IM, (PFIZER ARITA TOP BOOSTER) 2022-03-17 00:00:00 Completed [facility] SARS-COV-2 COVID-19 MIKE-SUCROSE VACCINE 12 YRS+, BIVALENT 0.3ML, IM, (PFIZER ARITA TOP BOOSTER) 2022-03-17 00:00:00 Completed [facility] SARS-COV-2 COVID-19 MIKE-SUCROSE VACCINE 12 YRS+, BIVALENT 0.3ML, IM, (PFIZER ARITA TOP BOOSTER) 2022-03-17 00:00:00 Completed [facility] SARS-COV-2 COVID-19 MIKE-SUCROSE VACCINE 12 YRS+, BIVALENT 0.3ML, IM, (PFIZER ARITA TOP BOOSTER) 2022-03-17 00:00:00 Completed [facility] SARS-COV-2 COVID-19 MIKE-SUCROSE VACCINE 12 YRS+, BIVALENT 0.3ML, IM, (PFIZER ARITA TOP BOOSTER) 2022-03-17 00:00:00 Completed [facility] SARS-COV-2 COVID-19 MIKE-SUCROSE VACCINE 12 YRS+, BIVALENT 0.3ML, IM, (PFIZER ARITA TOP BOOSTER) 2022-03-17 00:00:00 Completed [facility] SARS-COV-2 COVID-19 MIKE-SUCROSE VACCINE 12 YRS+, BIVALENT 0.3ML, IM, (PFIZER ARITA TOP BOOSTER) 2022-03-17 00:00:00 Completed [facility] SARS-COV-2 COVID-19 MIKE-SUCROSE VACCINE 12 YRS+, BIVALENT 0.3ML, IM, (PFIZER ARITA TOP BOOSTER) 2022-03-17 00:00:00 Completed [facility] SARS-COV-2 COVID-19 MIKE-SUCROSE VACCINE 12 YRS+, BIVALENT 0.3ML, IM, (PFIZER ARITA TOP BOOSTER) 2022-03-17 00:00:00 Completed [facility] SARS-COV-2 COVID-19 MIKE-SUCROSE VACCINE 12 YRS+, BIVALENT 0.3ML, IM, (PFIZER ARITA TOP BOOSTER) 2022-03-17 00:00:00 Completed [facility] SARS-COV-2 COVID-19 MIKE-SUCROSE VACCINE 12 YRS+, BIVALENT 0.3ML, IM, (PFIZER ARITA TOP BOOSTER) 2022-03-17 00:00:00 Completed [facility] SARS-COV-2 COVID-19 MIKE-SUCROSE VACCINE 12 YRS+, BIVALENT 0.3ML, IM, (PFIZER ARITA TOP BOOSTER) 2022-03-17 00:00:00 Completed [facility] SARS-COV-2 COVID-19 MIKE-SUCROSE VACCINE 12 YRS+, BIVALENT 0.3ML, IM, (PFIZER ARITA TOP BOOSTER) 2022-03-17 00:00:00 Completed [facility] SARS-COV-2 COVID-19 MIKE-SUCROSE VACCINE 12 YRS+, BIVALENT 0.3ML, IM, (PFIZER ARITA TOP BOOSTER) 2022-03-17 00:00:00 Completed [facility] SARS-COV-2 COVID-19 MIKE-SUCROSE VACCINE 12 YRS+, BIVALENT 0.3ML, IM, (PFIZER [facility] BOOSTER) 2022-03-17 00:00:00 Completed [facility] SARS-COV-2 COVID-19 MIKE-SUCROSE VACCINE 12 YRS+, BIVALENT 0.3ML, IM, (PFIZER [facility] BOOSTER) 2022-03-17 00:00:00 Completed [facility] SARS-COV-2 COVID-19 MIKE-SUCROSE VACCINE 12 YRS+, BIVALENT 0.3ML, IM, (PFIZER [facility] TOP BOOSTER) 2022-03-17 00:00:00 Completed [facility] SARS-COV-2 COVID-19 MIKE-SUCROSE VACCINE 12 YRS+, BIVALENT 0.3ML, IM, (PFIZER [facility] TOP BOOSTER) 2022-03-17 00:00:00 Completed [facility] SARS-COV-2 COVID-19 MIKE-SUCROSE VACCINE 12 YRS+, BIVALENT 0.3ML, IM, (PFIZER [facility] BOOSTER) 2022-03-17 00:00:00 Completed [facility] SARS-COV-2 COVID-19 MIKE-SUCROSE VACCINE 12 YRS+, BIVALENT 0.3ML, IM, (PFIZER [facility] BOOSTER) 2022-03-17 00:00:00 Completed [facility] SARS-COV-2 COVID-19 MIKE-SUCROSE VACCINE 12 YRS+, BIVALENT 0.3ML, IM, (PFIZER [facility] BOOSTER) 2022-03-17 00:00:00 Completed [facility] SARS-COV-2 COVID-19 MIKE-SUCROSE VACCINE 12 YRS+, BIVALENT 0.3ML, IM, (PFIZER [facility] BOOSTER) 2022-03-17 00:00:00 Completed [facility] SARS-COV-2 COVID-19 MIKE-SUCROSE VACCINE 12 YRS+, BIVALENT 0.3ML, IM, (PFIZER [facility] BOOSTER) 2022-03-17 00:00:00 Completed [facility] SARS-COV-2 COVID-19 MIKE-SUCROSE VACCINE 12 YRS+, BIVALENT 0.3ML, IM, (PFIZER [place] TOP BOOSTER) 2022-03-17 00:00:00 Completed [facility] SARS-COV-2 COVID-19 MIKE-SUCROSE VACCINE 12 YRS+, BIVALENT 0.3ML, IM, (PFIZER [facility] BOOSTER) 2022-03-17 00:00:00 Completed [facility] SARS-COV-2 COVID-19 MIKE-SUCROSE VACCINE 12 YRS+, BIVALENT 0.3ML, IM, (PFIZER [facility] BOOSTER) 2022-03-17 00:00:00 Completed [facility] SARS-COV-2 COVID-19 MIKE-SUCROSE VACCINE 12 YRS+, BIVALENT 0.3ML, IM, (PFIZER [facility] BOOSTER) 2022-03-17 00:00:00 Completed [facility] SARS-COV-2 COVID-19 MIKE-SUCROSE VACCINE 12 YRS+, BIVALENT 0.3ML, IM, ([facility]) 2022-03-17 00:00:00 Completed [facility] SARS-COV-2 COVID-19 MIKE-SUCROSE VACCINE 12 YRS+, BIVALENT 0.3ML, IM, ([facility]) 2022-03-17 00:00:00 Completed [facility] SARS-COV-2 COVID-19 MIKE-SUCROSE VACCINE 12 YRS+, BIVALENT 0.3ML, IM, (PFIZER [facility]) 2022-03-17 00:00:00 Completed [facility] SARS-COV-2 COVID-19 MIKE-SUCROSE VACCINE 12 YRS+, BIVALENT 0.3ML, IM, ([facility]) 2022-03-17 00:00:00 Completed [facility] SARS-COV-2 COVID-19 MIKE-SUCROSE VACCINE 12 YRS+, BIVALENT 0.3ML, IM, (PFIZER [facility]) 2022-03-17 00:00:00 Completed [facility] SARS-COV-2 COVID-19 MIKE-SUCROSE VACCINE 12 YRS+, BIVALENT 0.3ML, IM, (PFIZER [facility] TOP) 2022-03-17 00:00:00 Completed [facility] SARS-COV-2 COVID-19 MIKE-SUCROSE VACCINE 12 YRS+, BIVALENT 0.3ML, IM, (PFIZER [facility] TOP) 2022-03-17 00:00:00 Completed [facility] SARS-COV-2 COVID-19 MIKE-SUCROSE VACCINE 12 YRS+, BIVALENT 0.3ML, IM, (PFIZER [facility] TOP) 2022-03-17 00:00:00 Completed [facility] SARS-COV-2 COVID-19 MIKE-SUCROSE VACCINE 12 YRS+, BIVALENT 0.3ML, IM, (PFIZER [facility]) 2022-03-17 00:00:00 Completed [facility] SARS-COV-2 COVID-19 MIKE-SUCROSE VACCINE 12 YRS+, BIVALENT 0.3ML, IM, (PFIZER [facility] TOP) 2022-03-17 00:00:00 Completed [facility] SARS-COV-2 COVID-19 MIKE-SUCROSE VACCINE 12 YRS+, BIVALENT 0.3ML, IM, (PFIZER [facility] TOP) 2022-03-17 00:00:00 Completed [facility] SARS-COV-2 COVID-19 MIKE-SUCROSE VACCINE 12 YRS+, BIVALENT 0.3ML, IM, ([facility] ARITA TOP) 2022-03-17 00:00:00 Completed [facility] SARS-COV-2 COVID-19 MIKE-SUCROSE VACCINE 12 YRS+, BIVALENT 0.3ML, IM, (PFIZER [facility] TOP) 2022-03-17 00:00:00 Completed [facility] SARS-COV-2 COVID-19 MIKE-SUCROSE VACCINE 12 YRS+, BIVALENT 0.3ML, IM, (PFIZER [facility] TOP) 2022-03-17 00:00:00 Completed [facility] SARS-COV-2 COVID-19 MIKE-SUCROSE VACCINE 12 YRS+, BIVALENT 0.3ML, IM, (PFIZER [facility] TOP) 2022-03-17 00:00:00 Completed [facility] SARS-COV-2 COVID-19 MIKE-SUCROSE VACCINE 12 YRS+, BIVALENT 0.3ML, IM, (PFIZER [facility] TOP) 2022-03-17 00:00:00 Completed [facility] SARS-COV-2 COVID-19 MIKE-SUCROSE VACCINE 12 YRS+, BIVALENT 0.3ML, IM, (PFIZER [facility] TOP) 2022-03-17 00:00:00 Completed [facility] SARS-COV-2 COVID-19 MIKE-SUCROSE VACCINE 12 YRS+, BIVALENT 0.3ML, IM, (PFIZER [facility] TOP) 2022-03-17 00:00:00 Completed [facility] SARS-COV-2 COVID-19 MIKE-SUCROSE VACCINE 12 YRS+, BIVALENT 0.3ML, IM, (PFIZER [facility] TOP) 2022-03-17 00:00:00 Completed [facility] SARS-COV-2 COVID-19 MIKE-SUCROSE VACCINE 12 YRS+, BIVALENT 0.3ML, IM, (PFIZER [facility] TOP) 2022-03-17 00:00:00 Completed [facility] SARS-COV-2 COVID-19 MIKE-SUCROSE VACCINE 12 YRS+, BIVALENT 0.3ML, IM, (PFIZER [facility] TOP) 2022-03-17 00:00:00 Completed [facility] SARS-COV-2 COVID-19 MIKE-SUCROSE VACCINE 12 YRS+, BIVALENT 0.3ML, IM, (PFIZER [facility] TOP) 2022-03-17 00:00:00 Completed [facility] SARS-COV-2 COVID-19 MIKE-SUCROSE VACCINE 12 YRS+, BIVALENT 0.3ML, IM, (PFIZER [facility] TOP) 2022-03-17 00:00:00 Completed [facility] SARS-COV-2 COVID-19 MIKE-SUCROSE VACCINE 12 YRS+, BIVALENT 0.3ML, IM, (PFIZER [facility] TOP) 2022-03-17 00:00:00 Completed [facility] SARS-COV-2 COVID-19 MIKE-SUCROSE VACCINE 12 YRS+, BIVALENT 0.3ML, IM, (PFIZER [facility] TOP) 2022-03-17 00:00:00 Completed [facility] SARS-COV-2 COVID-19 MIKE-SUCROSE VACCINE 12 YRS+, BIVALENT 0.3ML, IM, ([facility] TOP) 2022-03-17 00:00:00 Completed [facility] SARS-COV-2 COVID-19 MIKE-SUCROSE VACCINE 12 YRS+, BIVALENT 0.3ML, IM, (PFIZER [facility] TOP) 2022-03-17 00:00:00 Completed [facility] SARS-COV-2 COVID-19 MIKE-SUCROSE VACCINE 12 YRS+, BIVALENT 0.3ML, IM, (PFIZER [facility] TOP) 2022-03-17 00:00:00 Completed [facility] SARS-COV-2 COVID-19 MIKE-SUCROSE VACCINE 12 YRS+, BIVALENT 0.3ML, IM, (PFIZER [facility] TOP) 2022-03-17 00:00:00 Completed [facility] SARS-COV-2 COVID-19 MIKE-SUCROSE VACCINE 12 YRS+, BIVALENT 0.3ML, IM, (PFIZER [facility] TOP) 2022-03-17 00:00:00 Completed [facility] SARS-COV-2 COVID-19 MIKE-SUCROSE VACCINE 12 YRS+, BIVALENT 0.3ML, IM, (PFIZER [facility] TOP) 2022-03-17 00:00:00 Completed [facility] SARS-COV-2 COVID-19 MIKE-SUCROSE VACCINE 12 YRS+, BIVALENT 0.3ML, IM, (PFIZER [facility] TOP) 2022-03-17 00:00:00 Completed [facility] SARS-COV-2 COVID-19 MIKE-SUCROSE VACCINE 12 YRS+, BIVALENT 0.3ML, IM, (PFIZER [facility] TOP) 2022-03-17 00:00:00 Completed [facility] SARS-COV-2 COVID-19 MIKE-SUCROSE VACCINE 12 YRS+, BIVALENT 0.3ML, IM, (PFIZER [facility] TOP) 2022-03-17 00:00:00 Completed [facility] SARS-COV-2 COVID-19 MIKE-SUCROSE VACCINE 12 YRS+, BIVALENT 0.3ML, IM, (PFIZER [facility] TOP) 2022-03-17 00:00:00 Completed [facility] SARS-COV-2 COVID-19 MIKE-SUCROSE VACCINE 12 YRS+, BIVALENT 0.3ML, IM, (PFIZER [facility] TOP) 2022-03-17 00:00:00 Completed [facility] SARS-COV-2 COVID-19 MIKE-SUCROSE VACCINE 12 YRS+, BIVALENT 0.3ML, IM, (PFIZER [facility]) 2022-03-17 00:00:00 Completed [facility] SARS-COV-2 COVID-19 MIKE-SUCROSE VACCINE 12 YRS+, BIVALENT 0.3ML, IM, (PFIZER [facility]) 2022-03-17 00:00:00 Completed [facility] SARS-COV-2 COVID-19 PFIZER VACCINE 2021-06-24 00:00:00 Completed [facility] SARS-COV-2 COVID-19 PFIZER VACCINE 2021-06-24 00:00:00 Completed [facility] SARS-COV-2 COVID-19 PFIZER VACCINE 2021-06-24 00:00:00 Completed [facility] SARS-COV-2 COVID-19 PFIZER VACCINE 2021-06-24 00:00:00 Completed [facility] SARS-COV-2 COVID-19 PFIZER VACCINE 2021-06-24 00:00:00 Completed [facility] SARS-COV-2 COVID-19 PFIZER VACCINE 2021-06-24 00:00:00 Completed [facility] SARS-COV-2 COVID-19 PFIZER VACCINE 2021-06-24 00:00:00 Completed [facility] SARS-COV-2 COVID-19 PFIZER VACCINE 2021-06-24 00:00:00 Completed [facility] SARS-COV-2 COVID-19 PFIZER VACCINE 2021-06-24 00:00:00 Completed [facility] SARS-COV-2 COVID-19 PFIZER VACCINE 2021-06-24 00:00:00 Completed [facility] SARS-COV-2 COVID-19 PFIZER VACCINE 2021-06-24 00:00:00 Completed [facility] SARS-COV-2 COVID-19 PFIZER VACCINE 2021-06-24 00:00:00 Completed [facility] SARS-COV-2 COVID-19 PFIZER VACCINE 2021-06-24 00:00:00 Completed [facility] SARS-COV-2 COVID-19 PFIZER VACCINE 2021-06-24 00:00:00 Completed [facility] SARS-COV-2 COVID-19 PFIZER VACCINE 2021-06-24 00:00:00 Completed [facility] SARS-COV-2 COVID-19 PFIZER VACCINE 2021-06-24 00:00:00 Completed [facility] SARS-COV-2 COVID-19 PFIZER VACCINE 2021-06-24 00:00:00 Completed [facility] SARS-COV-2 COVID-19 PFIZER VACCINE 2021-06-24 00:00:00 Completed [facility] SARS-COV-2 COVID-19 PFIZER VACCINE 2021-06-24 00:00:00 Completed [facility] SARS-COV-2 COVID-19 PFIZER VACCINE 2021-06-24 00:00:00 Completed [facility] SARS-COV-2 COVID-19 PFIZER VACCINE 2021-06-24 00:00:00 Completed [facility] SARS-COV-2 COVID-19 PFIZER VACCINE 2021-06-24 00:00:00 Completed [facility] SARS-COV-2 COVID-19 PFIZER VACCINE 2021-06-24 00:00:00 Completed [facility] SARS-COV-2 COVID-19 PFIZER VACCINE 2021-06-24 00:00:00 Completed [facility] SARS-COV-2 COVID-19 PFIZER VACCINE 2021-06-24 00:00:00 Completed [facility] SARS-COV-2 COVID-19 PFIZER VACCINE 2021-06-24 00:00:00 Completed [facility] SARS-COV-2 COVID-19 PFIZER VACCINE 2021-06-24 00:00:00 Completed [facility] SARS-COV-2 COVID-19 PFIZER VACCINE 2021-06-24 00:00:00 Completed [facility] SARS-COV-2 COVID-19 PFIZER VACCINE 2021-06-24 00:00:00 Completed [facility] SARS-COV-2 COVID-19 PFIZER VACCINE 2021-06-24 00:00:00 Completed [facility] SARS-COV-2 COVID-19 PFIZER VACCINE 2021-06-24 00:00:00 Completed [facility] SARS-COV-2 COVID-19 PFIZER VACCINE 2021-06-24 00:00:00 Completed [facility] SARS-COV-2 COVID-19 PFIZER VACCINE 2021-06-24 00:00:00 Completed [facility] SARS-COV-2 COVID-19 PFIZER VACCINE 2021-06-24 00:00:00 Completed [facility] SARS-COV-2 COVID-19 PFIZER VACCINE 2021-06-24 00:00:00 Completed [facility] SARS-COV-2 COVID-19 PFIZER VACCINE 2021-06-24 00:00:00 Completed [facility] SARS-COV-2 COVID-19 PFIZER VACCINE 2021-06-24 00:00:00 Completed [facility] SARS-COV-2 COVID-19 PFIZER VACCINE 2021-06-24 00:00:00 Completed [facility] SARS-COV-2 COVID-19 PFIZER VACCINE 2021-06-24 00:00:00 Completed [facility] SARS-COV-2 COVID-19 PFIZER VACCINE 2021-06-24 00:00:00 Completed [facility] SARS-COV-2 COVID-19 PFIZER VACCINE 2021-06-24 00:00:00 Completed [facility] SARS-COV-2 COVID-19 PFIZER VACCINE 2021-06-24 00:00:00 Completed [facility] SARS-COV-2 COVID-19 PFIZER VACCINE 2021-06-24 00:00:00 Completed [facility] SARS-COV-2 COVID-19 PFIZER VACCINE 2021-06-24 00:00:00 Completed [facility] SARS-COV-2 COVID-19 PFIZER VACCINE 2021-06-24 00:00:00 Completed [facility] SARS-COV-2 COVID-19 PFIZER VACCINE 2021-06-24 00:00:00 Completed [facility] SARS-COV-2 COVID-19 PFIZER VACCINE 2021-06-24 00:00:00 Completed [facility] SARS-COV-2 COVID-19 PFIZER VACCINE 2021-06-24 00:00:00 Completed [facility] SARS-COV-2 COVID-19 PFIZER VACCINE 2021-06-24 00:00:00 Completed [facility] SARS-COV-2 COVID-19 PFIZER VACCINE 2021-06-24 00:00:00 Completed [facility] SARS-COV-2 COVID-19 PFIZER VACCINE 2021-06-24 00:00:00 Completed [facility] SARS-COV-2 COVID-19 PFIZER VACCINE 2021-06-24 00:00:00 Completed [facility] SARS-COV-2 COVID-19 PFIZER VACCINE 2021-06-24 00:00:00 Completed [facility] SARS-COV-2 COVID-19 PFIZER VACCINE 2021-06-24 00:00:00 Completed [facility] SARS-COV-2 COVID-19 PFIZER VACCINE 2021-06-24 00:00:00 Completed [facility] SARS-COV-2 COVID-19 PFIZER VACCINE 2021-06-24 00:00:00 Completed [facility] SARS-COV-2 COVID-19 PFIZER VACCINE 2021-06-24 00:00:00 Completed [facility] SARS-COV-2 COVID-19 PFIZER VACCINE 2021-06-24 00:00:00 Completed [facility] SARS-COV-2 COVID-19 PFIZER VACCINE 2021-06-24 00:00:00 Completed [facility] SARS-COV-2 COVID-19 PFIZER VACCINE 2021-06-24 00:00:00 Completed [facility] SARS-COV-2 COVID-19 PFIZER VACCINE 2021-06-24 00:00:00 Completed [facility] SARS-COV-2 COVID-19 PFIZER VACCINE 2021-06-24 00:00:00 Completed [facility] SARS-COV-2 COVID-19 PFIZER VACCINE 2021-06-24 00:00:00 Completed [facility] SARS-COV-2 COVID-19 PFIZER VACCINE 2021-06-24 00:00:00 Completed [facility] SARS-COV-2 COVID-19 PFIZER VACCINE 2021-06-24 00:00:00 Completed [facility] SARS-COV-2 COVID-19 PFIZER VACCINE 2021-06-24 00:00:00 Completed [facility] SARS-COV-2 COVID-19 PFIZER VACCINE 2021-06-24 00:00:00 Completed [facility] SARS-COV-2 COVID-19 PFIZER VACCINE 2021-06-24 00:00:00 Completed [facility] SARS-COV-2 COVID-19 PFIZER VACCINE 2021-06-24 00:00:00 Completed [facility] SARS-COV-2 COVID-19 PFIZER VACCINE 2021-06-24 00:00:00 Completed [facility] SARS-COV-2 COVID-19 PFIZER VACCINE 2021-06-24 00:00:00 Completed [facility] SARS-COV-2 COVID-19 PFIZER VACCINE 2021-06-24 00:00:00 Completed [facility] SARS-COV-2 COVID-19 PFIZER VACCINE 2021-06-24 00:00:00 Completed [facility] SARS-COV-2 COVID-19 PFIZER VACCINE 2021-06-24 00:00:00 Completed [facility] SARS-COV-2 COVID-19 PFIZER VACCINE 2021-06-24 00:00:00 Completed [facility] SARS-COV-2 COVID-19 PFIZER VACCINE 2021-06-24 00:00:00 Completed [facility] SARS-COV-2 COVID-19 PFIZER VACCINE 2021-06-24 00:00:00 Completed [facility] SARS-COV-2 COVID-19 PFIZER VACCINE 2021-06-24 00:00:00 Completed [facility] SARS-COV-2 COVID-19 PFIZER VACCINE 2021-06-24 00:00:00 Completed [facility] SARS-COV-2 COVID-19 PFIZER VACCINE 2021-06-24 00:00:00 Completed [facility] SARS-COV-2 COVID-19 PFIZER VACCINE 2021-06-24 00:00:00 Completed [facility] SARS-COV-2 COVID-19 PFIZER VACCINE 2021-06-24 00:00:00 Completed [facility] SARS-COV-2 COVID-19 PFIZER VACCINE 2021-06-24 00:00:00 Completed [facility] SARS-COV-2 COVID-19 PFIZER VACCINE 2021-06-24 00:00:00 Completed [facility] SARS-COV-2 COVID-19 PFIZER VACCINE 2021-06-24 00:00:00 Completed [facility] SARS-COV-2 COVID-19 PFIZER VACCINE 2021-06-24 00:00:00 Completed [facility] SARS-COV-2 COVID-19 PFIZER VACCINE 2021-06-24 00:00:00 Completed [facility] SARS-COV-2 COVID-19 PFIZER VACCINE 2021-06-24 00:00:00 Completed [facility] SARS-COV-2 COVID-19 PFIZER VACCINE 2021-06-24 00:00:00 Completed [facility] SARS-COV-2 COVID-19 PFIZER VACCINE 2021-06-24 00:00:00 Completed [facility] SARS-COV-2 COVID-19 PFIZER VACCINE 2021-06-24 00:00:00 Completed [facility] SARS-COV-2 COVID-19 PFIZER VACCINE 2021-06-24 00:00:00 Completed [facility] SARS-COV-2 COVID-19 PFIZER VACCINE 2021-06-24 00:00:00 Completed [facility] SARS-COV-2 COVID-19 PFIZER VACCINE 2021-06-24 00:00:00 Completed [facility] SARS-COV-2 COVID-19 PFIZER VACCINE 2021-06-24 00:00:00 Completed [facility] SARS-COV-2 COVID-19 PFIZER VACCINE 2021-06-24 00:00:00 Completed [facility] SARS-COV-2 COVID-19 PFIZER VACCINE 2021-06-24 00:00:00 Completed [facility] SARS-COV-2 COVID-19 PFIZER VACCINE 2021-06-24 00:00:00 Completed [facility] SARS-COV-2 COVID-19 PFIZER VACCINE 2021-06-24 00:00:00 Completed [facility] SARS-COV-2 COVID-19 PFIZER VACCINE 2021-06-24 00:00:00 Completed [facility] SARS-COV-2 COVID-19 PFIZER VACCINE 2021-06-24 00:00:00 Completed [facility] SARS-COV-2 COVID-19 PFIZER VACCINE 2021-06-24 00:00:00 Completed [facility] SARS-COV-2 COVID-19 PFIZER VACCINE 2021-06-24 00:00:00 Completed [facility] SARS-COV-2 COVID-19 PFIZER VACCINE 2021-06-24 00:00:00 Completed [facility] SARS-COV-2 COVID-19 PFIZER VACCINE 2021-06-24 00:00:00 Completed [facility] SARS-COV-2 COVID-19 PFIZER VACCINE 2020-11-21 00:00:00 Completed [facility] SARS-COV-2 COVID-19 PFIZER VACCINE 2020-11-21 00:00:00 Completed [facility] SARS-COV-2 COVID-19 PFIZER VACCINE 2020-11-21 00:00:00 Completed [facility] SARS-COV-2 COVID-19 PFIZER VACCINE 2020-11-21 00:00:00 Completed [facility] SARS-COV-2 COVID-19 PFIZER VACCINE 2020-11-21 00:00:00 Completed [facility] SARS-COV-2 COVID-19 PFIZER VACCINE 2020-11-21 00:00:00 Completed [facility] SARS-COV-2 COVID-19 PFIZER VACCINE 2020-11-21 00:00:00 Completed [facility] SARS-COV-2 COVID-19 PFIZER VACCINE 2020-11-21 00:00:00 Completed [facility] SARS-COV-2 COVID-19 PFIZER VACCINE 2020-11-21 00:00:00 Completed [facility] SARS-COV-2 COVID-19 PFIZER VACCINE 2020-11-21 00:00:00 Completed [facility] SARS-COV-2 COVID-19 PFIZER VACCINE 2020-11-21 00:00:00 Completed [facility] SARS-COV-2 COVID-19 PFIZER VACCINE 2020-11-21 00:00:00 Completed [facility] SARS-COV-2 COVID-19 PFIZER VACCINE 2020-11-21 00:00:00 Completed [facility] SARS-COV-2 COVID-19 PFIZER VACCINE 2020-11-21 00:00:00 Completed [facility] SARS-COV-2 COVID-19 PFIZER VACCINE 2020-11-21 00:00:00 Completed [facility] SARS-COV-2 COVID-19 PFIZER VACCINE 2020-11-21 00:00:00 Completed [facility] SARS-COV-2 COVID-19 PFIZER VACCINE 2020-11-21 00:00:00 Completed [facility] SARS-COV-2 COVID-19 PFIZER VACCINE 2020-11-21 00:00:00 Completed [facility] SARS-COV-2 COVID-19 PFIZER VACCINE 2020-11-21 00:00:00 Completed [facility] SARS-COV-2 COVID-19 PFIZER VACCINE 2020-11-21 00:00:00 Completed [facility] SARS-COV-2 COVID-19 PFIZER VACCINE 2020-11-21 00:00:00 Completed [facility] SARS-COV-2 COVID-19 PFIZER VACCINE 2020-11-21 00:00:00 Completed [facility] SARS-COV-2 COVID-19 PFIZER VACCINE 2020-11-21 00:00:00 Completed [facility] SARS-COV-2 COVID-19 PFIZER VACCINE 2020-11-21 00:00:00 Completed [facility] SARS-COV-2 COVID-19 PFIZER VACCINE 2020-11-21 00:00:00 Completed [facility] SARS-COV-2 COVID-19 PFIZER VACCINE 2020-11-21 00:00:00 Completed [facility] SARS-COV-2 COVID-19 PFIZER VACCINE 2020-11-21 00:00:00 Completed [facility] SARS-COV-2 COVID-19 PFIZER VACCINE 2020-11-21 00:00:00 Completed [facility] SARS-COV-2 COVID-19 PFIZER VACCINE 2020-11-21 00:00:00 Completed [facility] SARS-COV-2 COVID-19 PFIZER VACCINE 2020-11-21 00:00:00 Completed [facility] SARS-COV-2 COVID-19 PFIZER VACCINE 2020-11-21 00:00:00 Completed [facility] SARS-COV-2 COVID-19 PFIZER VACCINE 2020-11-21 00:00:00 Completed [facility] SARS-COV-2 COVID-19 PFIZER VACCINE 2020-11-21 00:00:00 Completed [facility] SARS-COV-2 COVID-19 PFIZER VACCINE 2020-11-21 00:00:00 Completed [facility] SARS-COV-2 COVID-19 PFIZER VACCINE 2020-11-21 00:00:00 Completed [facility] SARS-COV-2 COVID-19 PFIZER VACCINE 2020-11-21 00:00:00 Completed [facility] SARS-COV-2 COVID-19 PFIZER VACCINE 2020-11-21 00:00:00 Completed [facility] SARS-COV-2 COVID-19 PFIZER VACCINE 2020-11-21 00:00:00 Completed [facility] SARS-COV-2 COVID-19 PFIZER VACCINE 2020-11-21 00:00:00 Completed [facility] SARS-COV-2 COVID-19 PFIZER VACCINE 2020-11-21 00:00:00 Completed [facility] SARS-COV-2 COVID-19 PFIZER VACCINE 2020-11-21 00:00:00 Completed [facility] SARS-COV-2 COVID-19 PFIZER VACCINE 2020-11-21 00:00:00 Completed [facility] SARS-COV-2 COVID-19 PFIZER VACCINE 2020-11-21 00:00:00 Completed [facility] SARS-COV-2 COVID-19 PFIZER VACCINE 2020-11-21 00:00:00 Completed [facility] SARS-COV-2 COVID-19 PFIZER VACCINE 2020-11-21 00:00:00 Completed [facility] SARS-COV-2 COVID-19 PFIZER VACCINE 2020-11-21 00:00:00 Completed [facility] SARS-COV-2 COVID-19 PFIZER VACCINE 2020-11-21 00:00:00 Completed [facility] SARS-COV-2 COVID-19 PFIZER VACCINE 2020-11-21 00:00:00 Completed [facility] SARS-COV-2 COVID-19 PFIZER VACCINE 2020-11-21 00:00:00 Completed [facility] SARS-COV-2 COVID-19 PFIZER VACCINE 2020-11-21 00:00:00 Completed [facility] SARS-COV-2 COVID-19 PFIZER VACCINE 2020-11-21 00:00:00 Completed [facility] SARS-COV-2 COVID-19 PFIZER VACCINE 2020-11-21 00:00:00 Completed [facility] SARS-COV-2 COVID-19 PFIZER VACCINE 2020-11-21 00:00:00 Completed [facility] SARS-COV-2 COVID-19 PFIZER VACCINE 2020-11-21 00:00:00 Completed [facility] SARS-COV-2 COVID-19 PFIZER VACCINE 2020-11-21 00:00:00 Completed [facility] SARS-COV-2 COVID-19 PFIZER VACCINE 2020-11-21 00:00:00 Completed [facility] SARS-COV-2 COVID-19 PFIZER VACCINE 2020-11-21 00:00:00 Completed [facility] SARS-COV-2 COVID-19 PFIZER VACCINE 2020-11-21 00:00:00 Completed [facility] SARS-COV-2 COVID-19 PFIZER VACCINE 2020-11-21 00:00:00 Completed [facility] SARS-COV-2 COVID-19 PFIZER VACCINE 2020-11-21 00:00:00 Completed [facility] SARS-COV-2 COVID-19 PFIZER VACCINE 2020-11-21 00:00:00 Completed [facility] SARS-COV-2 COVID-19 PFIZER VACCINE 2020-11-21 00:00:00 Completed [facility] SARS-COV-2 COVID-19 PFIZER VACCINE 2020-11-21 00:00:00 Completed [facility] SARS-COV-2 COVID-19 PFIZER VACCINE 2020-11-21 00:00:00 Completed [facility] SARS-COV-2 COVID-19 PFIZER VACCINE 2020-11-21 00:00:00 Completed [facility] SARS-COV-2 COVID-19 PFIZER VACCINE 2020-11-21 00:00:00 Completed [facility] SARS-COV-2 COVID-19 PFIZER VACCINE 2020-11-21 00:00:00 Completed [facility] SARS-COV-2 COVID-19 PFIZER VACCINE 2020-11-21 00:00:00 Completed [facility] SARS-COV-2 COVID-19 PFIZER VACCINE 2020-11-21 00:00:00 Completed [facility] SARS-COV-2 COVID-19 PFIZER VACCINE 2020-11-21 00:00:00 Completed [facility] SARS-COV-2 COVID-19 PFIZER VACCINE 2020-11-21 00:00:00 Completed [facility] SARS-COV-2 COVID-19 PFIZER VACCINE 2020-11-21 00:00:00 Completed [facility] SARS-COV-2 COVID-19 PFIZER VACCINE 2020-11-21 00:00:00 Completed [facility] SARS-COV-2 COVID-19 PFIZER VACCINE 2020-11-21 00:00:00 Completed [facility] SARS-COV-2 COVID-19 PFIZER VACCINE 2020-11-21 00:00:00 Completed [facility] SARS-COV-2 COVID-19 PFIZER VACCINE 2020-11-21 00:00:00 Completed [facility] SARS-COV-2 COVID-19 PFIZER VACCINE 2020-11-21 00:00:00 Completed [facility] SARS-COV-2 COVID-19 PFIZER VACCINE 2020-11-21 00:00:00 Completed [facility] SARS-COV-2 COVID-19 PFIZER VACCINE 2020-11-21 00:00:00 [facility] SARS-COV-2 COVID-19 PFIZER VACCINE 2020-11-21 00:00:00 Completed [facility] SARS-COV-2 COVID-19 PFIZER VACCINE 2020-11-21 00:00:00 Completed [facility] SARS-COV-2 COVID-19 PFIZER VACCINE 2020-11-21 00:00:00 Completed [facility] SARS-COV-2 COVID-19 PFIZER VACCINE 2020-11-21 00:00:00 Completed [facility] SARS-COV-2 COVID-19 PFIZER VACCINE 2020-11-21 00:00:00 Completed [facility] SARS-COV-2 COVID-19 PFIZER VACCINE 2020-11-21 00:00:00 Completed [facility] SARS-COV-2 COVID-19 PFIZER VACCINE 2020-11-21 00:00:00 Completed [facility] SARS-COV-2 COVID-19 PFIZER VACCINE 2020-11-21 00:00:00 Completed [facility] SARS-COV-2 COVID-19 PFIZER VACCINE 2020-11-21 00:00:00 Completed [facility] SARS-COV-2 COVID-19 PFIZER VACCINE 2020-11-21 00:00:00 Completed [facility] SARS-COV-2 COVID-19 PFIZER VACCINE 2020-11-21 00:00:00 Completed [facility] SARS-COV-2 COVID-19 PFIZER VACCINE 2020-11-21 00:00:00 Completed [facility] SARS-COV-2 COVID-19 PFIZER VACCINE 2020-11-21 00:00:00 Completed [facility] SARS-COV-2 COVID-19 PFIZER VACCINE 2020-11-21 00:00:00 Completed [facility] SARS-COV-2 COVID-19 PFIZER VACCINE 2020-11-21 00:00:00 Completed [facility] SARS-COV-2 COVID-19 PFIZER VACCINE 2020-11-21 00:00:00 Completed [facility] SARS-COV-2 COVID-19 PFIZER VACCINE 2020-11-21 00:00:00 Completed [facility] SARS-COV-2 COVID-19 PFIZER VACCINE 2020-11-21 00:00:00 Completed [facility] SARS-COV-2 COVID-19 PFIZER VACCINE 2020-11-21 00:00:00 Completed [facility] SARS-COV-2 COVID-19 PFIZER VACCINE 2020-11-21 00:00:00 Completed [facility] SARS-COV-2 COVID-19 PFIZER VACCINE 2020-11-21 00:00:00 Completed [facility] SARS-COV-2 COVID-19 PFIZER VACCINE 2020-11-21 00:00:00 Completed [facility] SARS-COV-2 COVID-19 PFIZER VACCINE 2020-11-21 00:00:00 Completed [facility] SARS-COV-2 COVID-19 PFIZER VACCINE 2020-11-21 00:00:00 Completed [facility] SARS-COV-2 COVID-19 PFIZER VACCINE 2020-11-21 00:00:00 Completed [facility] SARS-COV-2 COVID-19 PFIZER VACCINE 2020-11-21 00:00:00 Completed [facility] SARS-COV-2 COVID-19 PFIZER VACCINE 2020-10-24 00:00:00 Completed [facility] SARS-COV-2 COVID-19 PFIZER VACCINE 2020-10-24 00:00:00 Completed [facility] SARS-COV-2 COVID-19 PFIZER VACCINE 2020-10-24 00:00:00 Completed [facility] SARS-COV-2 COVID-19 PFIZER VACCINE 2020-10-24 00:00:00 Completed [facility] SARS-COV-2 COVID-19 PFIZER VACCINE 2020-10-24 00:00:00 Completed [facility] SARS-COV-2 COVID-19 PFIZER VACCINE 2020-10-24 00:00:00 Completed [facility] SARS-COV-2 COVID-19 PFIZER VACCINE 2020-10-24 00:00:00 Completed [facility] SARS-COV-2 COVID-19 PFIZER VACCINE 2020-10-24 00:00:00 Completed [facility] SARS-COV-2 COVID-19 PFIZER VACCINE 2020-10-24 00:00:00 Completed [facility] SARS-COV-2 COVID-19 PFIZER VACCINE 2020-10-24 00:00:00 Completed [facility] SARS-COV-2 COVID-19 PFIZER VACCINE 2020-10-24 00:00:00 Completed [facility] SARS-COV-2 COVID-19 PFIZER VACCINE 2020-10-24 00:00:00 Completed [facility] SARS-COV-2 COVID-19 PFIZER VACCINE 2020-10-24 00:00:00 Completed [facility] SARS-COV-2 COVID-19 PFIZER VACCINE 2020-10-24 00:00:00 Completed [facility] SARS-COV-2 COVID-19 PFIZER VACCINE 2020-10-24 00:00:00 Completed [facility] SARS-COV-2 COVID-19 PFIZER VACCINE 2020-10-24 00:00:00 Completed [facility] SARS-COV-2 COVID-19 PFIZER VACCINE 2020-10-24 00:00:00 Completed [facility] SARS-COV-2 COVID-19 PFIZER VACCINE 2020-10-24 00:00:00 Completed [facility] SARS-COV-2 COVID-19 PFIZER VACCINE 2020-10-24 00:00:00 Completed [facility] SARS-COV-2 COVID-19 PFIZER VACCINE 2020-10-24 00:00:00 Completed [facility] SARS-COV-2 COVID-19 PFIZER VACCINE 2020-10-24 00:00:00 Completed [facility] SARS-COV-2 COVID-19 PFIZER VACCINE 2020-10-24 00:00:00 Completed [facility] SARS-COV-2 COVID-19 PFIZER VACCINE 2020-10-24 00:00:00 Completed [facility] SARS-COV-2 COVID-19 PFIZER VACCINE 2020-10-24 00:00:00 Completed [facility] SARS-COV-2 COVID-19 PFIZER VACCINE 2020-10-24 00:00:00 Completed [facility] SARS-COV-2 COVID-19 PFIZER VACCINE 2020-10-24 00:00:00 Completed [facility] SARS-COV-2 COVID-19 PFIZER VACCINE 2020-10-24 00:00:00 Completed [facility] SARS-COV-2 COVID-19 PFIZER VACCINE 2020-10-24 00:00:00 Completed [facility] SARS-COV-2 COVID-19 PFIZER VACCINE 2020-10-24 00:00:00 Completed [facility] SARS-COV-2 COVID-19 PFIZER VACCINE 2020-10-24 00:00:00 Completed [facility] SARS-COV-2 COVID-19 PFIZER VACCINE 2020-10-24 00:00:00 Completed [facility] SARS-COV-2 COVID-19 PFIZER VACCINE 2020-10-24 00:00:00 Completed [facility] SARS-COV-2 COVID-19 PFIZER VACCINE 2020-10-24 00:00:00 Completed [facility] SARS-COV-2 COVID-19 PFIZER VACCINE 2020-10-24 00:00:00 Completed [facility] SARS-COV-2 COVID-19 PFIZER VACCINE 2020-10-24 00:00:00 Completed [facility] SARS-COV-2 COVID-19 PFIZER VACCINE 2020-10-24 00:00:00 Completed [facility] SARS-COV-2 COVID-19 PFIZER VACCINE 2020-10-24 00:00:00 Completed [facility] SARS-COV-2 COVID-19 PFIZER VACCINE 2020-10-24 00:00:00 Completed [facility] SARS-COV-2 COVID-19 PFIZER VACCINE 2020-10-24 00:00:00 Completed [facility] SARS-COV-2 COVID-19 PFIZER VACCINE 2020-10-24 00:00:00 Completed [facility] SARS-COV-2 COVID-19 PFIZER VACCINE 2020-10-24 00:00:00 Completed [facility] SARS-COV-2 COVID-19 PFIZER VACCINE 2020-10-24 00:00:00 Completed [facility] SARS-COV-2 COVID-19 PFIZER VACCINE 2020-10-24 00:00:00 Completed [facility] SARS-COV-2 COVID-19 PFIZER VACCINE 2020-10-24 00:00:00 Completed [facility] SARS-COV-2 COVID-19 PFIZER VACCINE 2020-10-24 00:00:00 Completed [facility] SARS-COV-2 COVID-19 PFIZER VACCINE 2020-10-24 00:00:00 Completed [facility] SARS-COV-2 COVID-19 PFIZER VACCINE 2020-10-24 00:00:00 Completed [facility] SARS-COV-2 COVID-19 PFIZER VACCINE 2020-10-24 00:00:00 Completed [facility] SARS-COV-2 COVID-19 PFIZER VACCINE 2020-10-24 00:00:00 Completed [facility] SARS-COV-2 COVID-19 PFIZER VACCINE 2020-10-24 00:00:00 Completed [facility] SARS-COV-2 COVID-19 PFIZER VACCINE 2020-10-24 00:00:00 Completed [facility] SARS-COV-2 COVID-19 PFIZER VACCINE 2020-10-24 00:00:00 Completed [facility] SARS-COV-2 COVID-19 PFIZER VACCINE 2020-10-24 00:00:00 Completed [facility] SARS-COV-2 COVID-19 PFIZER VACCINE 2020-10-24 00:00:00 Completed [facility] SARS-COV-2 COVID-19 PFIZER VACCINE 2020-10-24 00:00:00 Completed [facility] SARS-COV-2 COVID-19 PFIZER VACCINE 2020-10-24 00:00:00 Completed [facility] SARS-COV-2 COVID-19 PFIZER VACCINE 2020-10-24 00:00:00 Completed [facility] SARS-COV-2 COVID-19 PFIZER VACCINE 2020-10-24 00:00:00 Completed [facility] SARS-COV-2 COVID-19 PFIZER VACCINE 2020-10-24 00:00:00 Completed [facility] SARS-COV-2 COVID-19 PFIZER VACCINE 2020-10-24 00:00:00 Completed [facility] SARS-COV-2 COVID-19 PFIZER VACCINE 2020-10-24 00:00:00 Completed [facility] SARS-COV-2 COVID-19 PFIZER VACCINE 2020-10-24 00:00:00 Completed [facility] SARS-COV-2 COVID-19 PFIZER VACCINE 2020-10-24 00:00:00 Completed [facility] SARS-COV-2 COVID-19 PFIZER VACCINE 2020-10-24 00:00:00 Completed [facility] SARS-COV-2 COVID-19 PFIZER VACCINE 2020-10-24 00:00:00 Completed [facility] SARS-COV-2 COVID-19 PFIZER VACCINE 2020-10-24 00:00:00 Completed [facility] SARS-COV-2 COVID-19 PFIZER VACCINE 2020-10-24 00:00:00 Completed [facility] SARS-COV-2 COVID-19 PFIZER VACCINE 2020-10-24 00:00:00 Completed [facility] SARS-COV-2 COVID-19 PFIZER VACCINE 2020-10-24 00:00:00 Completed [facility] SARS-COV-2 COVID-19 PFIZER VACCINE 2020-10-24 00:00:00 Completed [facility] SARS-COV-2 COVID-19 PFIZER VACCINE 2020-10-24 00:00:00 Completed [facility] SARS-COV-2 COVID-19 PFIZER VACCINE 2020-10-24 00:00:00 Completed [facility] SARS-COV-2 COVID-19 PFIZER VACCINE 2020-10-24 00:00:00 Completed [facility] SARS-COV-2 COVID-19 PFIZER VACCINE 2020-10-24 00:00:00 Completed [facility] SARS-COV-2 COVID-19 PFIZER VACCINE 2020-10-24 00:00:00 Completed [facility] SARS-COV-2 COVID-19 PFIZER VACCINE 2020-10-24 00:00:00 Completed [facility] SARS-COV-2 COVID-19 PFIZER VACCINE 2020-10-24 00:00:00 Completed [facility] SARS-COV-2 COVID-19 PFIZER VACCINE 2020-10-24 00:00:00 Completed [facility] SARS-COV-2 COVID-19 PFIZER VACCINE 2020-10-24 00:00:00 Completed [facility] SARS-COV-2 COVID-19 PFIZER VACCINE 2020-10-24 00:00:00 Completed [facility] SARS-COV-2 COVID-19 PFIZER VACCINE 2020-10-24 00:00:00 Completed [facility] SARS-COV-2 COVID-19 PFIZER VACCINE 2020-10-24 00:00:00 Completed [facility] SARS-COV-2 COVID-19 PFIZER VACCINE 2020-10-24 00:00:00 Completed [facility] SARS-COV-2 COVID-19 PFIZER VACCINE 2020-10-24 00:00:00 Completed [facility] SARS-COV-2 COVID-19 PFIZER VACCINE 2020-10-24 00:00:00 Completed [facility] SARS-COV-2 COVID-19 PFIZER VACCINE 2020-10-24 00:00:00 Completed [facility] SARS-COV-2 COVID-19 PFIZER VACCINE 2020-10-24 00:00:00 Completed [facility] SARS-COV-2 COVID-19 PFIZER VACCINE 2020-10-24 00:00:00 Completed [facility] SARS-COV-2 COVID-19 PFIZER VACCINE 2020-10-24 00:00:00 Completed [facility] SARS-COV-2 COVID-19 PFIZER VACCINE 2020-10-24 00:00:00 Completed [facility] SARS-COV-2 COVID-19 PFIZER VACCINE 2020-10-24 00:00:00 Completed [facility] SARS-COV-2 COVID-19 PFIZER VACCINE 2020-10-24 00:00:00 Completed [facility] SARS-COV-2 COVID-19 PFIZER VACCINE 2020-10-24 00:00:00 Completed [facility] SARS-COV-2 COVID-19 PFIZER VACCINE 2020-10-24 00:00:00 Completed [facility] SARS-COV-2 COVID-19 PFIZER VACCINE 2020-10-24 00:00:00 Completed [facility] SARS-COV-2 COVID-19 PFIZER VACCINE 2020-10-24 00:00:00 Completed [facility] SARS-COV-2 COVID-19 PFIZER VACCINE 2020-10-24 00:00:00 Completed [facility] SARS-COV-2 COVID-19 PFIZER VACCINE 2020-10-24 00:00:00 Completed [facility] SARS-COV-2 COVID-19 PFIZER VACCINE 2020-10-24 00:00:00 Completed [facility] SARS-COV-2 COVID-19 PFIZER VACCINE 2020-10-24 00:00:00 Completed [facility] SARS-COV-2 COVID-19 PFIZER VACCINE 2020-10-24 00:00:00 Completed [facility] SARS-COV-2 COVID-19 PFIZER VACCINE 2020-10-24 00:00:00 Completed [facility] SARS-COV-2 COVID-19 PFIZER VACCINE 2020-10-24 00:00:00 Completed [facility] SARS-COV-2 COVID-19 PFIZER VACCINE 2020-10-24 00:00:00 Completed [facility] SARS-COV-2 COVID-19 PFIZER VACCINE 2020-10-24 00:00:00 Completed [facility] Influenza Virus Vaccine Quad .5 mL IM 6+ MO 2020-07-08 00:00:00 Completed [facility] Influenza Virus Vaccine Quad .5 mL IM 6+ MO 2020-07-08 00:00:00 Completed [facility] Influenza Virus Vaccine Quad .5 mL IM 6+ MO 2020-07-08 00:00:00 Completed [facility] Influenza Virus Vaccine Quad .5 mL IM 6+ MO 2020-07-08 00:00:00 Completed [facility] Influenza Virus Vaccine Quad .5 mL IM 6+ MO 2020-07-08 00:00:00 Completed [facility] Influenza Virus Vaccine Quad .5 mL IM 6+ MO 2020-07-08 00:00:00 Completed [facility] Influenza Virus Vaccine Quad .5 mL IM 6+ MO 2020-07-08 00:00:00 Completed [facility] Influenza Virus Vaccine Quad .5 mL IM 6+ MO 2020-07-08 00:00:00 Completed [facility] Influenza Virus Vaccine Quad .5 mL IM 6+ MO 2020-07-08 00:00:00 Completed [facility] Influenza Virus Vaccine Quad .5 mL IM 6+ MO 2020-07-08 00:00:00 Completed [facility] Influenza Virus Vaccine Quad .5 mL IM 6+ MO 2020-07-08 00:00:00 Completed [facility] Influenza Virus Vaccine Quad .5 mL IM 6+ MO 2020-07-08 00:00:00 Completed [facility] Influenza Virus Vaccine Quad .5 mL IM 6+ MO 2020-07-08 00:00:00 Completed [facility] Influenza Virus Vaccine Quad .5 mL IM 6+ MO 2020-07-08 00:00:00 Completed [facility] Influenza Virus Vaccine Quad .5 mL IM 6+ MO 2020-07-08 00:00:00 Completed [facility] Influenza Virus Vaccine Quad .5 mL IM 6+ MO 2020-07-08 00:00:00 Completed [facility] Influenza Virus Vaccine Quad .5 mL IM 6+ MO 2020-07-08 00:00:00 Completed [facility] Influenza Virus Vaccine Quad .5 mL IM 6+ MO 2020-07-08 00:00:00 Completed [facility] Influenza Virus Vaccine Quad .5 mL IM 6+ MO 2020-07-08 00:00:00 Completed [facility] Influenza Virus Vaccine Quad .5 mL IM 6+ MO 2020-07-08 00:00:00 Completed [facility] Influenza Virus Vaccine Quad .5 mL IM 6+ MO 2020-07-08 00:00:00 Completed [facility] Influenza Virus Vaccine Quad .5 mL IM 6+ MO 2020-07-08 00:00:00 Completed [facility] Influenza Virus Vaccine Quad .5 mL IM 6+ MO 2020-07-08 00:00:00 Completed [facility] Influenza Virus Vaccine Quad .5 mL IM 6+ MO 2020-07-08 00:00:00 Completed [facility] Influenza Virus Vaccine Quad .5 mL IM 6+ MO 2020-07-08 00:00:00 Completed [facility] Influenza Virus Vaccine Quad .5 mL IM 6+ MO 2020-07-08 00:00:00 Completed [facility] Influenza Virus Vaccine Quad .5 mL IM 6+ MO 2020-07-08 00:00:00 Completed [facility] Influenza Virus Vaccine Quad .5 mL IM 6+ MO 2020-07-08 00:00:00 Completed [facility] Influenza Virus Vaccine Quad .5 mL IM 6+ MO 2020-07-08 00:00:00 Completed [facility] Influenza Virus Vaccine Quad .5 mL IM 6+ MO 2020-07-08 00:00:00 Completed [facility] Influenza Virus Vaccine Quad .5 mL IM 6+ MO 2020-07-08 00:00:00 Completed [facility] Influenza Virus Vaccine Quad .5 mL IM 6+ MO 2020-07-08 00:00:00 Completed [facility] Influenza Virus Vaccine Quad .5 mL IM 6+ MO 2020-07-08 00:00:00 Completed [facility] Influenza Virus Vaccine Quad .5 mL IM 6+ MO 2020-07-08 00:00:00 Completed [facility] Influenza Virus Vaccine Quad .5 mL IM 6+ MO 2020-07-08 00:00:00 Completed [facility] Influenza Virus Vaccine Quad .5 mL IM 6+ MO 2020-07-08 00:00:00 Completed [facility] Influenza Virus Vaccine Quad .5 mL IM 6+ MO 2020-07-08 00:00:00 Completed [facility] Influenza Virus Vaccine Quad .5 mL IM 6+ MO 2020-07-08 00:00:00 Completed [facility] Influenza Virus Vaccine Quad .5 mL IM 6+ MO 2020-07-08 00:00:00 Completed [facility] Influenza Virus Vaccine Quad .5 mL IM 6+ MO 2020-07-08 00:00:00 Completed [facility] Influenza Virus Vaccine Quad .5 mL IM 6+ MO 2020-07-08 00:00:00 Completed [facility] Influenza Virus Vaccine Quad .5 mL IM 6+ MO 2020-07-08 00:00:00 Completed [facility] Influenza Virus Vaccine Quad .5 mL IM 6+ MO 2020-07-08 00:00:00 Completed [facility] Influenza Virus Vaccine Quad .5 mL IM 6+ MO 2020-07-08 00:00:00 Completed [facility] Influenza Virus Vaccine Quad .5 mL IM 6+ MO 2020-07-08 00:00:00 Completed [facility] Influenza Virus Vaccine Quad .5 mL IM 6+ MO 2020-07-08 00:00:00 Completed [facility] Influenza Virus Vaccine Quad .5 mL IM 6+ MO 2020-07-08 00:00:00 Completed [facility] Influenza Virus Vaccine Quad .5 mL IM 6+ MO 2020-07-08 00:00:00 Completed [facility] Influenza Virus Vaccine Quad .5 mL IM 6+ MO 2020-07-08 00:00:00 Completed [facility] Influenza Virus Vaccine Quad .5 mL IM 6+ MO 2020-07-08 00:00:00 Completed [facility] Influenza Virus Vaccine Quad .5 mL IM 6+ MO 2020-07-08 00:00:00 Completed [facility] Influenza Virus Vaccine Quad .5 mL IM 6+ MO 2020-07-08 00:00:00 Completed [facility] Influenza Virus Vaccine Quad .5 mL IM 6+ MO 2020-07-08 00:00:00 Completed [facility] Influenza Virus Vaccine Quad .5 mL IM 6+ MO 2020-07-08 00:00:00 Completed [facility] Influenza Virus Vaccine Quad .5 mL IM 6+ MO 2020-07-08 00:00:00 Completed [facility] Influenza Virus Vaccine Quad .5 mL IM 6+ MO 2020-07-08 00:00:00 Completed [facility] Influenza Virus Vaccine Quad .5 mL IM 6+ MO 2020-07-08 00:00:00 Completed [facility] Influenza Virus Vaccine Quad .5 mL IM 6+ MO 2020-07-08 00:00:00 Completed [facility] Influenza Virus Vaccine Quad .5 mL IM 6+ MO 2020-07-08 00:00:00 Completed [facility] Influenza Virus Vaccine Quad .5 mL IM 6+ MO 2020-07-08 00:00:00 Completed [facility] Influenza Virus Vaccine Quad .5 mL IM 6+ MO 2020-07-08 00:00:00 Completed [facility] Influenza Virus Vaccine Quad .5 mL IM 6+ MO 2020-07-08 00:00:00 Completed [facility] Influenza Virus Vaccine Quad .5 mL IM 6+ MO 2020-07-08 00:00:00 Completed [facility] Influenza Virus Vaccine Quad .5 mL IM 6+ MO 2020-07-08 00:00:00 Completed [facility] Influenza Virus Vaccine Quad .5 mL IM 6+ MO 2020-07-08 00:00:00 Completed [facility] Influenza Virus Vaccine Quad .5 mL IM 6+ MO 2020-07-08 00:00:00 Completed [facility] Influenza Virus Vaccine Quad .5 mL IM 6+ MO 2020-07-08 00:00:00 Completed [facility] Influenza Virus Vaccine Quad .5 mL IM 6+ MO 2020-07-08 00:00:00 Completed [facility] Influenza Virus Vaccine Quad .5 mL IM 6+ MO 2020-07-08 00:00:00 Completed [facility] Influenza Virus Vaccine Quad .5 mL IM 6+ MO 2020-07-08 00:00:00 Completed [facility] Influenza Virus Vaccine Quad .5 mL IM 6+ MO 2020-07-08 00:00:00 Completed [facility] Influenza Virus Vaccine Quad .5 mL IM 6+ MO 2020-07-08 00:00:00 Completed [facility] Influenza Virus Vaccine Quad .5 mL IM 6+ MO 2020-07-08 00:00:00 Completed [facility] Influenza Virus Vaccine Quad .5 mL IM 6+ MO 2020-07-08 00:00:00 Completed [facility] Influenza Virus Vaccine Quad .5 mL IM 6+ MO 2020-07-08 00:00:00 Completed [facility] Influenza Virus Vaccine Quad .5 mL IM 6+ MO 2020-07-08 00:00:00 Completed [facility] Influenza Virus Vaccine Quad .5 mL IM 6+ MO 2020-07-08 00:00:00 Completed [facility] Influenza Virus Vaccine Quad .5 mL IM 6+ MO 2020-07-08 00:00:00 Completed [facility] Influenza Virus Vaccine Quad .5 mL IM 6+ MO 2020-07-08 00:00:00 Completed [facility] Influenza Virus Vaccine Quad .5 mL IM 6+ MO 2020-07-08 00:00:00 Completed [facility] Influenza Virus Vaccine Quad .5 mL IM 6+ MO 2020-07-08 00:00:00 Completed [facility] Influenza Virus Vaccine Quad .5 mL IM 6+ MO 2020-07-08 00:00:00 Completed [facility] Influenza Virus Vaccine Quad .5 mL IM 6+ MO 2020-07-08 00:00:00 Completed [facility] Influenza Virus Vaccine Quad .5 mL IM 6+ MO 2020-07-08 00:00:00 Completed [facility] Influenza Virus Vaccine Quad .5 mL IM 6+ MO 2020-07-08 00:00:00 Completed [facility] Influenza Virus Vaccine Quad .5 mL IM 6+ MO 2020-07-08 00:00:00 Completed [facility] Influenza Virus Vaccine Quad .5 mL IM 6+ MO 2020-07-08 00:00:00 Completed [facility] Influenza Virus Vaccine Quad .5 mL IM 6+ MO 2020-07-08 00:00:00 Completed [facility] Influenza Virus Vaccine Quad .5 mL IM 6+ MO 2020-07-08 00:00:00 Completed [facility] Influenza Virus Vaccine Quad .5 mL IM 6+ MO 2020-07-08 00:00:00 Completed [facility] Influenza Virus Vaccine Quad .5 mL IM 6+ MO 2020-07-08 00:00:00 Completed [facility] Influenza Virus Vaccine Quad .5 mL IM 6+ MO 2020-07-08 00:00:00 Completed [facility] Influenza Virus Vaccine Quad .5 mL IM 6+ MO 2020-07-08 00:00:00 Completed [facility] Influenza Virus Vaccine Quad .5 mL IM 6+ MO 2020-07-08 00:00:00 Completed [facility] Influenza Virus Vaccine Quad .5 mL IM 6+ MO 2020-07-08 00:00:00 Completed [facility] Influenza Virus Vaccine Quad .5 mL IM 6+ MO 2020-07-08 00:00:00 Completed [facility] Influenza Virus Vaccine Quad .5 mL IM 6+ MO (FLUZONE/FLULAVAL/FL UARIX) 2020-07-08 00:00:00 Completed [facility] Influenza Virus Vaccine Quad .5 mL IM 6+ MO (FLUZONE/FLULAVAL/FL UARIX) 2020-07-08 00:00:00 Completed [facility] Influenza Virus Vaccine Quad .5 mL IM 6+ MO (FLUZONE/FLULAVAL/FL UARIX) 2020-07-08 00:00:00 Completed [facility] Influenza Virus Vaccine Quad .5 mL IM 6+ MO (FLUZONE/FLULAVAL/FL UARIX) 2020-07-08 00:00:00 Completed [facility] Influenza Virus Vaccine Quad .5 mL IM 6+ MO (FLUZONE/FLULAVAL/FL UARIX) 2020-07-08 00:00:00 Completed [facility] Influenza Virus Vaccine Quad .5 mL IM 6+ MO (FLUZONE/FLULAVAL/FL UARIX) 2020-07-08 00:00:00 Completed [facility] Influenza Virus Vaccine Quad .5 mL IM 6+ MO (FLUZONE/FLULAVAL/FL UARIX) 2020-07-08 00:00:00 Completed [facility] Influenza Virus Vaccine Quad .5 mL IM 6+ MO (FLUZONE/FLULAVAL/FL UARIX) 2020-07-08 00:00:00 Completed [facility] Influenza Virus Vaccine Quad .5 mL IM 6+ MO (FLUZONE/FLULAVAL/FL UARIX) 2020-07-08 00:00:00 Completed [facility] Meningococcal B, OMV 2018-10-31 00:00:00 Completed [facility] Meningococcal B, OMV 2018-10-31 00:00:00 Completed [facility] Meningococcal B, OMV 2018-10-31 00:00:00 Completed [facility] Meningococcal B, OMV 2018-10-31 00:00:00 Completed [facility] Meningococcal B, OMV 2018-10-31 00:00:00 Completed [facility] Meningococcal B, OMV 2018-10-31 00:00:00 Completed [facility] Meningococcal B, OMV 2018-10-31 00:00:00 Completed [facility] Meningococcal B, OMV 2018-10-31 00:00:00 Completed [facility] Meningococcal B, OMV 2018-10-31 00:00:00 Completed [facility] Meningococcal B, OMV 2018-10-31 00:00:00 Completed [facility] Meningococcal B, OMV 2018-10-31 00:00:00 Completed [facility] Meningococcal B, OMV 2018-10-31 00:00:00 Completed [facility] Meningococcal B, OMV 2018-10-31 00:00:00 Completed [facility] Meningococcal B, OMV 2018-10-31 00:00:00 Completed [facility] Meningococcal B, OMV 2018-10-31 00:00:00 Completed [facility] Meningococcal B, OMV 2018-10-31 00:00:00 Completed [facility] Meningococcal B, OMV 2018-10-31 00:00:00 Completed [facility] Meningococcal B, OMV 2018-10-31 00:00:00 Completed [facility] Meningococcal B, OMV 2018-10-31 00:00:00 Completed [facility] Meningococcal B, OMV 2018-10-31 00:00:00 Completed [facility] Meningococcal B, OMV 2018-10-31 00:00:00 Completed [facility] Meningococcal B, OMV 2018-10-31 00:00:00 Completed [facility] Meningococcal B, OMV 2018-10-31 00:00:00 Completed [facility] Meningococcal B, OMV 2018-10-31 00:00:00 Completed [facility] Meningococcal B, OMV 2018-10-31 00:00:00 Completed [facility] Meningococcal B, OMV 2018-10-31 00:00:00 Completed [facility] Meningococcal B, OMV 2018-10-31 00:00:00 Completed [facility] Meningococcal B, OMV 2018-10-31 00:00:00 Completed [facility] Meningococcal B, OMV 2018-10-31 00:00:00 Completed [facility] Meningococcal B, OMV 2018-10-31 00:00:00 Completed [facility] Meningococcal B, OMV 2018-10-31 00:00:00 Completed [facility] Meningococcal B, OMV 2018-10-31 00:00:00 Completed [facility] Meningococcal B, OMV 2018-10-31 00:00:00 Completed [facility] Meningococcal B, OMV 2018-10-31 00:00:00 Completed [facility] Meningococcal B, OMV 2018-10-31 00:00:00 Completed [facility] Meningococcal B, OMV 2018-10-31 00:00:00 Completed [facility] Meningococcal B, OMV 2018-10-31 00:00:00 Completed [facility] Meningococcal B, OMV 2018-10-31 00:00:00 Completed [facility] Meningococcal B, OMV 2018-10-31 00:00:00 Completed [facility] Meningococcal B, OMV 2018-10-31 00:00:00 Completed [facility] Meningococcal B, OMV 2018-10-31 00:00:00 Completed [facility] Meningococcal B, OMV 2018-10-31 00:00:00 Completed [facility] Meningococcal B, OMV 2018-10-31 00:00:00 Completed [facility] Meningococcal B, OMV 2018-10-31 00:00:00 Completed [facility] Meningococcal B, OMV 2018-10-31 00:00:00 Completed [facility] Meningococcal B, OMV 2018-10-31 00:00:00 Completed [facility] Meningococcal B, OMV 2018-10-31 00:00:00 Completed [facility] Meningococcal B, OMV 2018-10-31 00:00:00 Completed [facility] Meningococcal B, OMV 2018-10-31 00:00:00 Completed [facility] Meningococcal B, OMV 2018-10-31 00:00:00 Completed [facility] Meningococcal B, OMV 2018-10-31 00:00:00 Completed [facility] Meningococcal B, OMV 2018-10-31 00:00:00 Completed [facility] Meningococcal B, OMV 2018-10-31 00:00:00 Completed [facility] Meningococcal B, OMV 2018-10-31 00:00:00 Completed [facility] Meningococcal B, OMV 2018-10-31 00:00:00 Completed [facility] Meningococcal B, OMV 2018-10-31 00:00:00 Completed [facility] Meningococcal B, OMV 2018-10-31 00:00:00 Completed [facility] Meningococcal B, OMV 2018-10-31 00:00:00 Completed [facility] Meningococcal B, OMV 2018-10-31 00:00:00 Completed [facility] Meningococcal B, OMV 2018-10-31 00:00:00 Completed [facility] Meningococcal B, OMV 2018-10-31 00:00:00 Completed [facility] Meningococcal B, OMV 2018-10-31 00:00:00 Completed [facility] Meningococcal B, OMV 2018-10-31 00:00:00 Completed [facility] Meningococcal B, OMV 2018-10-31 00:00:00 Completed [facility] Meningococcal B, OMV 2018-10-31 00:00:00 Completed [facility] Meningococcal B, OMV 2018-10-31 00:00:00 Completed [facility] Meningococcal B, OMV 2018-10-31 00:00:00 Completed [facility] Meningococcal B, OMV 2018-10-31 00:00:00 Completed [facility] Meningococcal B, OMV 2018-10-31 00:00:00 Completed [facility] Meningococcal B, OMV 2018-10-31 00:00:00 Completed [facility] Meningococcal B, OMV 2018-10-31 00:00:00 Completed [facility] Meningococcal B, OMV 2018-10-31 00:00:00 Completed [facility] Meningococcal B, OMV 2018-10-31 00:00:00 Completed [facility] Meningococcal B, OMV 2018-10-31 00:00:00 Completed [facility] Meningococcal B, OMV 2018-10-31 00:00:00 Completed [facility] Meningococcal B, OMV 2018-10-31 00:00:00 Completed [facility] Meningococcal B, OMV 2018-10-31 00:00:00 Completed [facility] Meningococcal B, OMV 2018-10-31 00:00:00 Completed [facility] Meningococcal B, OMV 2018-10-31 00:00:00 Completed [facility] Meningococcal B, OMV 2018-10-31 00:00:00 Completed [facility] Meningococcal B, OMV 2018-10-31 00:00:00 Completed [facility] Meningococcal B, OMV 2018-10-31 00:00:00 Completed [facility] Meningococcal B, OMV 2018-10-31 00:00:00 Completed [facility] Meningococcal B, OMV 2018-10-31 00:00:00 Completed [facility] Meningococcal B, OMV 2018-10-31 00:00:00 Completed [facility] Meningococcal B, OMV 2018-10-31 00:00:00 Completed [facility] Meningococcal B, OMV 2018-10-31 00:00:00 Completed [facility] Meningococcal B, OMV 2018-10-31 00:00:00 Completed [facility] Meningococcal B, OMV 2018-10-31 00:00:00 Completed [facility] Meningococcal B, OMV 2018-10-31 00:00:00 Completed [facility] Meningococcal B, OMV 2018-10-31 00:00:00 Completed [facility] Meningococcal B, OMV 2018-10-31 00:00:00 Completed [facility] Meningococcal B, OMV 2018-10-31 00:00:00 Completed [facility] Meningococcal B, OMV 2018-10-31 00:00:00 Completed [facility] Meningococcal B, OMV 2018-10-31 00:00:00 Completed [facility] Meningococcal B, OMV 2018-10-31 00:00:00 Completed [facility] Meningococcal B, OMV 2018-10-31 00:00:00 Completed [facility] Meningococcal B, OMV 2018-10-31 00:00:00 Completed [facility] Meningococcal B, OMV 2018-10-31 00:00:00 Completed [facility] Meningococcal B, OMV 2018-10-31 00:00:00 Completed [facility] Meningococcal B, OMV 2018-10-31 00:00:00 Completed [facility] Meningococcal B, OMV 2018-10-31 00:00:00 Completed [facility] Meningococcal B, OMV 2018-10-31 00:00:00 Completed [facility] Meningococcal B, OMV 2018-10-31 00:00:00 Completed [facility] Meningococcal B, OMV 2018-10-31 00:00:00 Completed [facility] Influenza Virus Vaccine Quad .5 mL IM 6+ MO 2018-08-29 00:00:00 Completed [facility] Meningococcal B, OMV 2018-08-29 00:00:00 Completed [facility] Influenza Virus Vaccine Quad .5 mL IM 6+ MO 2018-08-29 00:00:00 Completed [facility] Meningococcal B, OMV 2018-08-29 00:00:00 Completed [facility] Influenza Virus Vaccine Quad .5 mL IM 6+ MO 2018-08-29 00:00:00 Completed [facility] Meningococcal B, OMV 2018-08-29 00:00:00 Completed [facility] Influenza Virus Vaccine Quad .5 mL IM 6+ MO 2018-08-29 00:00:00 Completed [facility] Meningococcal B, OMV 2018-08-29 00:00:00 Completed [facility] Influenza Virus Vaccine Quad .5 mL IM 6+ MO 2018-08-29 00:00:00 Completed [facility] Meningococcal B, OMV 2018-08-29 00:00:00 Completed [facility] Influenza Virus Vaccine Quad .5 mL IM 6+ MO 2018-08-29 00:00:00 Completed [facility] Meningococcal B, OMV 2018-08-29 00:00:00 Completed [facility] Influenza Virus Vaccine Quad .5 mL IM 6+ MO 2018-08-29 00:00:00 Completed [facility] Meningococcal B, OMV 2018-08-29 00:00:00 Completed [facility] Influenza Virus Vaccine Quad .5 mL IM 6+ MO 2018-08-29 00:00:00 Completed [facility] Meningococcal B, OMV 2018-08-29 00:00:00 Completed [facility] Influenza Virus Vaccine Quad .5 mL IM 6+ MO 2018-08-29 00:00:00 Completed [facility] Meningococcal B, OMV 2018-08-29 00:00:00 Completed [facility] Influenza Virus Vaccine Quad .5 mL IM 6+ MO 2018-08-29 00:00:00 Completed [facility] Meningococcal B, OMV 2018-08-29 00:00:00 Completed [facility] Influenza Virus Vaccine Quad .5 mL IM 6+ MO 2018-08-29 00:00:00 Completed [facility] Meningococcal B, OMV 2018-08-29 00:00:00 Completed [facility] Influenza Virus Vaccine Quad .5 mL IM 6+ MO 2018-08-29 00:00:00 Completed [facility] Meningococcal B, OMV 2018-08-29 00:00:00 Completed [facility] Influenza Virus Vaccine Quad .5 mL IM 6+ MO 2018-08-29 00:00:00 Completed [facility] Meningococcal B, OMV 2018-08-29 00:00:00 Completed [facility] Influenza Virus Vaccine Quad .5 mL IM 6+ MO 2018-08-29 00:00:00 Completed [facility] Meningococcal B, OMV 2018-08-29 00:00:00 Completed [facility] Influenza Virus Vaccine Quad .5 mL IM 6+ MO 2018-08-29 00:00:00 Completed [facility] Meningococcal B, OMV 2018-08-29 00:00:00 Completed [facility] Influenza Virus Vaccine Quad .5 mL IM 6+ MO 2018-08-29 00:00:00 Completed [facility] Meningococcal B, OMV 2018-08-29 00:00:00 Completed [facility] Influenza Virus Vaccine Quad .5 mL IM 6+ MO 2018-08-29 00:00:00 Completed [facility] Meningococcal B, OMV 2018-08-29 00:00:00 Completed [facility] Influenza Virus Vaccine Quad .5 mL IM 6+ MO 2018-08-29 00:00:00 Completed [facility] Meningococcal B, OMV 2018-08-29 00:00:00 Completed [facility] Influenza Virus Vaccine Quad .5 mL IM 6+ MO 2018-08-29 00:00:00 Completed [facility] Meningococcal B, OMV 2018-08-29 00:00:00 Completed [facility] Influenza Virus Vaccine Quad .5 mL IM 6+ MO 2018-08-29 00:00:00 Completed [facility] Meningococcal B, OMV 2018-08-29 00:00:00 Completed [facility] Influenza Virus Vaccine Quad .5 mL IM 6+ MO 2018-08-29 00:00:00 Completed [facility] Meningococcal B, OMV 2018-08-29 00:00:00 Completed [facility] Influenza Virus Vaccine Quad .5 mL IM 6+ MO 2018-08-29 00:00:00 Completed [facility] Meningococcal B, OMV 2018-08-29 00:00:00 Completed [facility] Influenza Virus Vaccine Quad .5 mL IM 6+ MO 2018-08-29 00:00:00 Completed [facility] Meningococcal B, OMV 2018-08-29 00:00:00 Completed [facility] Influenza Virus Vaccine Quad .5 mL IM 6+ MO 2018-08-29 00:00:00 Completed [facility] Meningococcal B, OMV 2018-08-29 00:00:00 Completed [facility] Influenza Virus Vaccine Quad .5 mL IM 6+ MO 2018-08-29 00:00:00 Completed [facility] Meningococcal B, OMV 2018-08-29 00:00:00 Completed [facility] Influenza Virus Vaccine Quad .5 mL IM 6+ MO 2018-08-29 00:00:00 Completed [facility] Meningococcal B, OMV 2018-08-29 00:00:00 Completed [facility] Influenza Virus Vaccine Quad .5 mL IM 6+ MO 2018-08-29 00:00:00 Completed [facility] Meningococcal B, OMV 2018-08-29 00:00:00 Completed [facility] Influenza Virus Vaccine Quad .5 mL IM 6+ MO 2018-08-29 00:00:00 Completed [facility] Meningococcal B, OMV 2018-08-29 00:00:00 Completed [facility] Influenza Virus Vaccine Quad .5 mL IM 6+ MO 2018-08-29 00:00:00 Completed [facility] Meningococcal B, OMV 2018-08-29 00:00:00 Completed [facility] Influenza Virus Vaccine Quad .5 mL IM 6+ MO 2018-08-29 00:00:00 Completed [facility] Meningococcal B, OMV 2018-08-29 00:00:00 Completed [facility] Influenza Virus Vaccine Quad .5 mL IM 6+ MO 2018-08-29 00:00:00 Completed [facility] Meningococcal B, OMV 2018-08-29 00:00:00 Completed [facility] Influenza Virus Vaccine Quad .5 mL IM 6+ MO 2018-08-29 00:00:00 Completed [facility] Meningococcal B, OMV 2018-08-29 00:00:00 Completed [facility] Influenza Virus Vaccine Quad .5 mL IM 6+ MO 2018-08-29 00:00:00 Completed [facility] Meningococcal B, OMV 2018-08-29 00:00:00 Completed [facility] Influenza Virus Vaccine Quad .5 mL IM 6+ MO 2018-08-29 00:00:00 Completed [facility] Meningococcal B, OMV 2018-08-29 00:00:00 Completed [facility] Influenza Virus Vaccine Quad .5 mL IM 6+ MO 2018-08-29 00:00:00 Completed [facility] Meningococcal B, OMV 2018-08-29 00:00:00 Completed [facility] Influenza Virus Vaccine Quad .5 mL IM 6+ MO 2018-08-29 00:00:00 Completed [facility] Meningococcal B, OMV 2018-08-29 00:00:00 Completed [facility] Influenza Virus Vaccine Quad .5 mL IM 6+ MO 2018-08-29 00:00:00 Completed [facility] Meningococcal B, OMV 2018-08-29 00:00:00 Completed [facility] Influenza Virus Vaccine Quad .5 mL IM 6+ MO 2018-08-29 00:00:00 Completed [facility] Meningococcal B, OMV 2018-08-29 00:00:00 Completed [facility] Influenza Virus Vaccine Quad .5 mL IM 6+ MO 2018-08-29 00:00:00 Completed [facility] Meningococcal B, OMV 2018-08-29 00:00:00 Completed [facility] Influenza Virus Vaccine Quad .5 mL IM 6+ MO 2018-08-29 00:00:00 Completed [facility] Meningococcal B, OMV 2018-08-29 00:00:00 Completed [facility] Influenza Virus Vaccine Quad .5 mL IM 6+ MO 2018-08-29 00:00:00 Completed [facility] Meningococcal B, OMV 2018-08-29 00:00:00 Completed [facility] Influenza Virus Vaccine Quad .5 mL IM 6+ MO 2018-08-29 00:00:00 Completed [facility] Meningococcal B, OMV 2018-08-29 00:00:00 Completed [facility] Influenza Virus Vaccine Quad .5 mL IM 6+ MO 2018-08-29 00:00:00 Completed [facility] Meningococcal B, OMV 2018-08-29 00:00:00 Completed [facility] Influenza Virus Vaccine Quad .5 mL IM 6+ MO 2018-08-29 00:00:00 Completed [facility] Meningococcal B, OMV 2018-08-29 00:00:00 Completed [facility] Influenza Virus Vaccine Quad .5 mL IM 6+ MO 2018-08-29 00:00:00 Completed [facility] Meningococcal B, OMV 2018-08-29 00:00:00 Completed [facility] Influenza Virus Vaccine Quad .5 mL IM 6+ MO 2018-08-29 00:00:00 Completed [facility] Meningococcal B, OMV 2018-08-29 00:00:00 Completed [facility] Influenza Virus Vaccine Quad .5 mL IM 6+ MO 2018-08-29 00:00:00 Completed [facility] Meningococcal B, OMV 2018-08-29 00:00:00 Completed [facility] Influenza Virus Vaccine Quad .5 mL IM 6+ MO 2018-08-29 00:00:00 Completed [facility] Meningococcal B, OMV 2018-08-29 00:00:00 Completed [facility] Influenza Virus Vaccine Quad .5 mL IM 6+ MO 2018-08-29 00:00:00 Completed [facility] Meningococcal B, OMV 2018-08-29 00:00:00 Completed [facility] Influenza Virus Vaccine Quad .5 mL IM 6+ MO 2018-08-29 00:00:00 Completed [facility] Meningococcal B, OMV 2018-08-29 00:00:00 Completed [facility] Influenza Virus Vaccine Quad .5 mL IM 6+ MO 2018-08-29 00:00:00 Completed [facility] Meningococcal B, OMV 2018-08-29 00:00:00 Completed [facility] Influenza Virus Vaccine Quad .5 mL IM 6+ MO 2018-08-29 00:00:00 Completed [facility] Meningococcal B, OMV 2018-08-29 00:00:00 Completed [facility] Influenza Virus Vaccine Quad .5 mL IM 6+ MO 2018-08-29 00:00:00 Completed [facility] Meningococcal B, OMV 2018-08-29 00:00:00 Completed [facility] Influenza Virus Vaccine Quad .5 mL IM 6+ MO 2018-08-29 00:00:00 Completed [facility] Meningococcal B, OMV 2018-08-29 00:00:00 Completed [facility] Influenza Virus Vaccine Quad .5 mL IM 6+ MO 2018-08-29 00:00:00 Completed [facility] Meningococcal B, OMV 2018-08-29 00:00:00 Completed [facility] Influenza Virus Vaccine Quad .5 mL IM 6+ MO 2018-08-29 00:00:00 Completed [facility] Meningococcal B, OMV 2018-08-29 00:00:00 Completed [facility] Influenza Virus Vaccine Quad .5 mL IM 6+ MO 2018-08-29 00:00:00 Completed [facility] Meningococcal B, OMV 2018-08-29 00:00:00 Completed [facility] Influenza Virus Vaccine Quad .5 mL IM 6+ MO 2018-08-29 00:00:00 Completed [facility] Meningococcal B, OMV 2018-08-29 00:00:00 Completed [facility] Influenza Virus Vaccine Quad .5 mL IM 6+ MO 2018-08-29 00:00:00 Completed [facility] Meningococcal B, OMV 2018-08-29 00:00:00 Completed [facility] Influenza Virus Vaccine Quad .5 mL IM 6+ MO 2018-08-29 00:00:00 Completed [facility] Meningococcal B, OMV 2018-08-29 00:00:00 Completed [facility] Influenza Virus Vaccine Quad .5 mL IM 6+ MO 2018-08-29 00:00:00 Completed [facility] Meningococcal B, OMV 2018-08-29 00:00:00 Completed [facility] Influenza Virus Vaccine Quad .5 mL IM 6+ MO 2018-08-29 00:00:00 Completed [facility] Meningococcal B, OMV 2018-08-29 00:00:00 Completed [facility] Influenza Virus Vaccine Quad .5 mL IM 6+ MO 2018-08-29 00:00:00 Completed [facility] Meningococcal B, OMV 2018-08-29 00:00:00 Completed [facility] Influenza Virus Vaccine Quad .5 mL IM 6+ MO 2018-08-29 00:00:00 Completed [facility] Meningococcal B, OMV 2018-08-29 00:00:00 Completed [facility] Influenza Virus Vaccine Quad .5 mL IM 6+ MO 2018-08-29 00:00:00 Completed [facility] Meningococcal B, OMV 2018-08-29 00:00:00 Completed [facility] Influenza Virus Vaccine Quad .5 mL IM 6+ MO 2018-08-29 00:00:00 Completed [facility] Meningococcal B, OMV 2018-08-29 00:00:00 Completed [facility] Influenza Virus Vaccine Quad .5 mL IM 6+ MO 2018-08-29 00:00:00 Completed [facility] Meningococcal B, OMV 2018-08-29 00:00:00 Completed [facility] Influenza Virus Vaccine Quad .5 mL IM 6+ MO 2018-08-29 00:00:00 Completed [facility] Meningococcal B, OMV 2018-08-29 00:00:00 Completed [facility] Influenza Virus Vaccine Quad .5 mL IM 6+ MO 2018-08-29 00:00:00 Completed [facility] Meningococcal B, OMV 2018-08-29 00:00:00 Completed [facility] Influenza Virus Vaccine Quad .5 mL IM 6+ MO 2018-08-29 00:00:00 Completed [facility] Meningococcal B, OMV 2018-08-29 00:00:00 Completed [facility] Influenza Virus Vaccine Quad .5 mL IM 6+ MO 2018-08-29 00:00:00 Completed [facility] Meningococcal B, OMV 2018-08-29 00:00:00 Completed [facility] Influenza Virus Vaccine Quad .5 mL IM 6+ MO 2018-08-29 00:00:00 Completed [facility] Meningococcal B, OMV 2018-08-29 00:00:00 Completed [facility] Influenza Virus Vaccine Quad .5 mL IM 6+ MO 2018-08-29 00:00:00 Completed [facility] Meningococcal B, OMV 2018-08-29 00:00:00 Completed [facility] Influenza Virus Vaccine Quad .5 mL IM 6+ MO 2018-08-29 00:00:00 Completed [facility] Meningococcal B, OMV 2018-08-29 00:00:00 Completed [facility] Influenza Virus Vaccine Quad .5 mL IM 6+ MO 2018-08-29 00:00:00 Completed [facility] Meningococcal B, OMV 2018-08-29 00:00:00 Completed [facility] Influenza Virus Vaccine Quad .5 mL IM 6+ MO 2018-08-29 00:00:00 Completed [facility] Meningococcal B, OMV 2018-08-29 00:00:00 Completed [facility] Influenza Virus Vaccine Quad .5 mL IM 6+ MO 2018-08-29 00:00:00 Completed [facility] Meningococcal B, OMV 2018-08-29 00:00:00 Completed [facility] Influenza Virus Vaccine Quad .5 mL IM 6+ MO 2018-08-29 00:00:00 Completed [facility] Meningococcal B, OMV 2018-08-29 00:00:00 Completed [facility] Influenza Virus Vaccine Quad .5 mL IM 6+ MO 2018-08-29 00:00:00 Completed [facility] Meningococcal B, OMV 2018-08-29 00:00:00 Completed [facility] Influenza Virus Vaccine Quad .5 mL IM 6+ MO 2018-08-29 00:00:00 Completed [facility] Meningococcal B, OMV 2018-08-29 00:00:00 Completed [facility] Influenza Virus Vaccine Quad .5 mL IM 6+ MO 2018-08-29 00:00:00 Completed [facility] Meningococcal B, OMV 2018-08-29 00:00:00 Completed [facility] Influenza Virus Vaccine Quad .5 mL IM 6+ MO 2018-08-29 00:00:00 Completed [facility] Meningococcal B, OMV 2018-08-29 00:00:00 Completed [facility] Influenza Virus Vaccine Quad .5 mL IM 6+ MO 2018-08-29 00:00:00 Completed [facility] Meningococcal B, OMV 2018-08-29 00:00:00 Completed [facility] Influenza Virus Vaccine Quad .5 mL IM 6+ MO 2018-08-29 00:00:00 Completed [facility] Meningococcal B, OMV 2018-08-29 00:00:00 Completed [facility] Influenza Virus Vaccine Quad .5 mL IM 6+ MO 2018-08-29 00:00:00 Completed [facility] Meningococcal B, OMV 2018-08-29 00:00:00 Completed [facility] Influenza Virus Vaccine Quad .5 mL IM 6+ MO 2018-08-29 00:00:00 Completed [facility] Meningococcal B, OMV 2018-08-29 00:00:00 Completed [facility] Influenza Virus Vaccine Quad .5 mL IM 6+ MO 2018-08-29 00:00:00 Completed [facility] Meningococcal B, OMV 2018-08-29 00:00:00 Completed [facility] Influenza Virus Vaccine Quad .5 mL IM 6+ MO 2018-08-29 00:00:00 Completed [facility] Meningococcal B, OMV 2018-08-29 00:00:00 Completed [facility] Influenza Virus Vaccine Quad .5 mL IM 6+ MO 2018-08-29 00:00:00 Completed [facility] Meningococcal B, OMV 2018-08-29 00:00:00 Completed [facility] Influenza Virus Vaccine Quad .5 mL IM 6+ MO 2018-08-29 00:00:00 Completed [facility] Meningococcal B, OMV 2018-08-29 00:00:00 Completed [facility] Influenza Virus Vaccine Quad .5 mL IM 6+ MO 2018-08-29 00:00:00 Completed [facility] Meningococcal B, OMV 2018-08-29 00:00:00 Completed [facility] Influenza Virus Vaccine Quad .5 mL IM 6+ MO 2018-08-29 00:00:00 Completed [facility] Meningococcal B, OMV 2018-08-29 00:00:00 Completed [facility] Influenza Virus Vaccine Quad .5 mL IM 6+ MO 2018-08-29 00:00:00 Completed [facility] Meningococcal B, OMV 2018-08-29 00:00:00 Completed [facility] Influenza Virus Vaccine Quad .5 mL IM 6+ MO 2018-08-29 00:00:00 Completed [facility] Meningococcal B, OMV 2018-08-29 00:00:00 Completed [facility] Influenza Virus Vaccine Quad .5 mL IM 6+ MO 2018-08-29 00:00:00 Completed [facility] Meningococcal B, OMV 2018-08-29 00:00:00 Completed [facility] Influenza Virus Vaccine Quad .5 mL IM 6+ MO 2018-08-29 00:00:00 Completed [facility] Meningococcal B, OMV 2018-08-29 00:00:00 Completed [facility] Influenza Virus Vaccine Quad .5 mL IM 6+ MO (FLUZONE/FLULAVAL/FL UARIX) 2018-08-29 00:00:00 Completed [facility] Meningococcal B, OMV 2018-08-29 00:00:00 Completed [facility] Influenza Virus Vaccine Quad .5 mL IM 6+ MO (FLUZONE/FLULAVAL/FL UARIX) 2018-08-29 00:00:00 Completed [facility] Meningococcal B, OMV 2018-08-29 00:00:00 Completed [facility] Influenza Virus Vaccine Quad .5 mL IM 6+ MO (FLUZONE/FLULAVAL/FL UARIX) 2018-08-29 00:00:00 Completed [facility] Meningococcal B, OMV 2018-08-29 00:00:00 Completed [facility] Influenza Virus Vaccine Quad .5 mL IM 6+ MO (FLUZONE/FLULAVAL/FL UARIX) 2018-08-29 00:00:00 Completed [facility] Meningococcal B, OMV 2018-08-29 00:00:00 Completed [facility] Influenza Virus Vaccine Quad .5 mL IM 6+ MO (FLUZONE/FLULAVAL/FL UARIX) 2018-08-29 00:00:00 Completed [facility] Meningococcal B, OMV 2018-08-29 00:00:00 Completed [facility] Influenza Virus Vaccine Quad .5 mL IM 6+ MO (FLUZONE/FLULAVAL/FL UARIX) 2018-08-29 00:00:00 Completed [facility] Meningococcal B, OMV 2018-08-29 00:00:00 Completed [facility] Influenza Virus Vaccine Quad .5 mL IM 6+ MO (FLUZONE/FLULAVAL/FL UARIX) 2018-08-29 00:00:00 Completed [facility] Meningococcal B, OMV 2018-08-29 00:00:00 Completed [facility] Influenza Virus Vaccine Quad .5 mL IM 6+ MO (FLUZONE/FLULAVAL/FL UARIX) 2018-08-29 00:00:00 Completed [facility] Meningococcal B, OMV 2018-08-29 00:00:00 Completed [facility] Influenza Virus Vaccine Quad .5 mL IM 6+ MO (FLUZONE/FLULAVAL/FL UARIX) 2018-08-29 00:00:00 Completed [facility] Meningococcal B, OMV 2018-08-29 00:00:00 Completed [facility] Meningococcal Polysaccharide (groups A, C, Y and W-135) conjugate vaccine (MCV4P) 2018-01-17 00:00:00 Completed [facility] Meningococcal Polysaccharide (groups A, C, Y and W-135) conjugate vaccine (MCV4P) 2018-01-17 00:00:00 Completed [facility] Meningococcal Polysaccharide (groups A, C, Y and W-135) conjugate vaccine (MCV4P) 2018-01-17 00:00:00 Completed [facility] Meningococcal Polysaccharide (groups A, C, Y and W-135) conjugate vaccine (MCV4P) 2018-01-17 00:00:00 Completed [facility] Meningococcal Polysaccharide (groups A, C, Y and W-135) conjugate vaccine (MCV4P) 2018-01-17 00:00:00 Completed [facility] Meningococcal Polysaccharide (groups A, C, Y and W-135) conjugate vaccine (MCV4P) 2018-01-17 00:00:00 Completed [facility] Meningococcal Polysaccharide (groups A, C, Y and W-135) conjugate vaccine (MCV4P) 2018-01-17 00:00:00 Completed [facility] Meningococcal Polysaccharide (groups A, C, Y and W-135) conjugate vaccine (MCV4P) 2018-01-17 00:00:00 Completed [facility] Meningococcal Polysaccharide (groups A, C, Y and W-135) conjugate vaccine (MCV4P) 2018-01-17 00:00:00 Completed [facility] Meningococcal Polysaccharide (groups A, C, Y and W-135) conjugate vaccine (MCV4P) 2018-01-17 00:00:00 Completed [facility] Meningococcal Polysaccharide (groups A, C, Y and W-135) conjugate vaccine (MCV4P) 2018-01-17 00:00:00 Completed [facility] Meningococcal Polysaccharide (groups A, C, Y and W-135) conjugate vaccine (MCV4P) 2018-01-17 00:00:00 Completed [facility] Meningococcal Polysaccharide (groups A, C, Y and W-135) conjugate vaccine (MCV4P) 2018-01-17 00:00:00 Completed [facility] Meningococcal Polysaccharide (groups A, C, Y and W-135) conjugate vaccine (MCV4P) 2018-01-17 00:00:00 Completed [facility] Meningococcal Polysaccharide (groups A, C, Y and W-135) conjugate vaccine (MCV4P) 2018-01-17 00:00:00 Completed [facility] Meningococcal Polysaccharide (groups A, C, Y and W-135) conjugate vaccine (MCV4P) 2018-01-17 00:00:00 Completed [facility] Meningococcal Polysaccharide (groups A, C, Y and W-135) conjugate vaccine (MCV4P) 2018-01-17 00:00:00 Completed [facility] Meningococcal Polysaccharide (groups A, C, Y and W-135) conjugate vaccine (MCV4P) 2018-01-17 00:00:00 Completed [facility] Meningococcal Polysaccharide (groups A, C, Y and W-135) conjugate vaccine (MCV4P) 2018-01-17 00:00:00 Completed [facility] Meningococcal Polysaccharide (groups A, C, Y and W-135) conjugate vaccine (MCV4P) 2018-01-17 00:00:00 Completed [facility] Meningococcal Polysaccharide (groups A, C, Y and W-135) conjugate vaccine (MCV4P) 2018-01-17 00:00:00 Completed [facility] Meningococcal Polysaccharide (groups A, C, Y and W-135) conjugate vaccine (MCV4P) 2018-01-17 00:00:00 Completed [facility] Meningococcal Polysaccharide (groups A, C, Y and W-135) conjugate vaccine (MCV4P) 2018-01-17 00:00:00 Completed [facility] Meningococcal Polysaccharide (groups A, C, Y and W-135) conjugate vaccine (MCV4P) 2018-01-17 00:00:00 Completed [facility] Meningococcal Polysaccharide (groups A, C, Y and W-135) conjugate vaccine (MCV4P) 2018-01-17 00:00:00 Completed [facility] Meningococcal Polysaccharide (groups A, C, Y and W-135) conjugate vaccine (MCV4P) 2018-01-17 00:00:00 Completed [facility] Meningococcal Polysaccharide (groups A, C, Y and W-135) conjugate vaccine (MCV4P) 2018-01-17 00:00:00 Completed [facility] Meningococcal Polysaccharide (groups A, C, Y and W-135) conjugate vaccine (MCV4P) 2018-01-17 00:00:00 Completed [facility] Meningococcal Polysaccharide (groups A, C, Y and W-135) conjugate vaccine (MCV4P) 2018-01-17 00:00:00 Completed [facility] Meningococcal Polysaccharide (groups A, C, Y and W-135) conjugate vaccine (MCV4P) 2018-01-17 00:00:00 Completed [facility] Meningococcal Polysaccharide (groups A, C, Y and W-135) conjugate vaccine (MCV4P) 2018-01-17 00:00:00 Completed [facility] Meningococcal Polysaccharide (groups A, C, Y and W-135) conjugate vaccine (MCV4P) 2018-01-17 00:00:00 Completed [facility] Meningococcal Polysaccharide (groups A, C, Y and W-135) conjugate vaccine (MCV4P) 2018-01-17 00:00:00 Completed [facility] Meningococcal Polysaccharide (groups A, C, Y and W-135) conjugate vaccine (MCV4P) 2018-01-17 00:00:00 Completed [facility] Meningococcal Polysaccharide (groups A, C, Y and W-135) conjugate vaccine (MCV4P) 2018-01-17 00:00:00 Completed [facility] Meningococcal Polysaccharide (groups A, C, Y and W-135) conjugate vaccine (MCV4P) 2018-01-17 00:00:00 Completed [facility] Meningococcal Polysaccharide (groups A, C, Y and W-135) conjugate vaccine (MCV4P) 2018-01-17 00:00:00 Completed [facility] Meningococcal Polysaccharide (groups A, C, Y and W-135) conjugate vaccine (MCV4P) 2018-01-17 00:00:00 Completed [facility] Meningococcal Polysaccharide (groups A, C, Y and W-135) conjugate vaccine (MCV4P) 2018-01-17 00:00:00 Completed [facility] Meningococcal Polysaccharide (groups A, C, Y and W-135) conjugate vaccine (MCV4P) 2018-01-17 00:00:00 Completed [facility] Meningococcal Polysaccharide (groups A, C, Y and W-135) conjugate vaccine (MCV4P) 2018-01-17 00:00:00 Completed [facility] Meningococcal Polysaccharide (groups A, C, Y and W-135) conjugate vaccine (MCV4P) 2018-01-17 00:00:00 Completed [facility] Meningococcal Polysaccharide (groups A, C, Y and W-135) conjugate vaccine (MCV4P) 2018-01-17 00:00:00 Completed [facility] Meningococcal Polysaccharide (groups A, C, Y and W-135) conjugate vaccine (MCV4P) 2018-01-17 00:00:00 Completed [facility] Meningococcal Polysaccharide (groups A, C, Y and W-135) conjugate vaccine (MCV4P) 2018-01-17 00:00:00 Completed [facility] Meningococcal Polysaccharide (groups A, C, Y and W-135) conjugate vaccine (MCV4P) 2018-01-17 00:00:00 Completed [facility] Meningococcal Polysaccharide (groups A, C, Y and W-135) conjugate vaccine (MCV4P) 2018-01-17 00:00:00 Completed [facility] Meningococcal Polysaccharide (groups A, C, Y and W-135) conjugate vaccine (MCV4P) 2018-01-17 00:00:00 Completed [facility] Meningococcal Polysaccharide (groups A, C, Y and W-135) conjugate vaccine (MCV4P) 2018-01-17 00:00:00 Completed [facility] Meningococcal Polysaccharide (groups A, C, Y and W-135) conjugate vaccine (MCV4P) 2018-01-17 00:00:00 Completed [facility] Meningococcal Polysaccharide (groups A, C, Y and W-135) conjugate vaccine (MCV4P) 2018-01-17 00:00:00 Completed [facility] Meningococcal Polysaccharide (groups A, C, Y and W-135) conjugate vaccine (MCV4P) 2018-01-17 00:00:00 Completed [facility] Meningococcal Polysaccharide (groups A, C, Y and W-135) conjugate vaccine (MCV4P) 2018-01-17 00:00:00 Completed [facility] Meningococcal Polysaccharide (groups A, C, Y and W-135) conjugate vaccine (MCV4P) 2018-01-17 00:00:00 Completed [facility] Meningococcal Polysaccharide (groups A, C, Y and W-135) conjugate vaccine (MCV4P) 2018-01-17 00:00:00 Completed [facility] Meningococcal Polysaccharide (groups A, C, Y and W-135) conjugate vaccine (MCV4P) 2018-01-17 00:00:00 Completed [facility] Meningococcal Polysaccharide (groups A, C, Y and W-135) conjugate vaccine (MCV4P) 2018-01-17 00:00:00 Completed [facility] Meningococcal Polysaccharide (groups A, C, Y and W-135) conjugate vaccine (MCV4P) 2018-01-17 00:00:00 Completed [facility] Meningococcal Polysaccharide (groups A, C, Y and W-135) conjugate vaccine (MCV4P) 2018-01-17 00:00:00 Completed [facility] Meningococcal Polysaccharide (groups A, C, Y and W-135) conjugate vaccine (MCV4P) 2018-01-17 00:00:00 Completed [facility] Meningococcal Polysaccharide (groups A, C, Y and W-135) conjugate vaccine (MCV4P) 2018-01-17 00:00:00 Completed [facility] Meningococcal Polysaccharide (groups A, C, Y and W-135) conjugate vaccine (MCV4P) 2018-01-17 00:00:00 Completed [facility] Meningococcal Polysaccharide (groups A, C, Y and W-135) conjugate vaccine (MCV4P) 2018-01-17 00:00:00 Completed [facility] Meningococcal Polysaccharide (groups A, C, Y and W-135) conjugate vaccine (MCV4P) 2018-01-17 00:00:00 Completed [facility] Meningococcal Polysaccharide (groups A, C, Y and W-135) conjugate vaccine (MCV4P) 2018-01-17 00:00:00 Completed [facility] Meningococcal Polysaccharide (groups A, C, Y and W-135) conjugate vaccine (MCV4P) 2018-01-17 00:00:00 Completed [facility] Meningococcal Polysaccharide (groups A, C, Y and W-135) conjugate vaccine (MCV4P) 2018-01-17 00:00:00 Completed [facility] Meningococcal Polysaccharide (groups A, C, Y and W-135) conjugate vaccine (MCV4P) 2018-01-17 00:00:00 Completed [facility] Meningococcal Polysaccharide (groups A, C, Y and W-135) conjugate vaccine (MCV4P) 2018-01-17 00:00:00 Completed [facility] Meningococcal Polysaccharide (groups A, C, Y and W-135) conjugate vaccine (MCV4P) 2018-01-17 00:00:00 Completed [facility] Meningococcal Polysaccharide (groups A, C, Y and W-135) conjugate vaccine (MCV4P) 2018-01-17 00:00:00 Completed [facility] Meningococcal Polysaccharide (groups A, C, Y and W-135) conjugate vaccine (MCV4P) 2018-01-17 00:00:00 Completed [facility] Meningococcal Polysaccharide (groups A, C, Y and W-135) conjugate vaccine (MCV4P) 2018-01-17 00:00:00 Completed [facility] Meningococcal Polysaccharide (groups A, C, Y and W-135) conjugate vaccine (MCV4P) 2018-01-17 00:00:00 Completed [facility] Meningococcal Polysaccharide (groups A, C, Y and W-135) conjugate vaccine (MCV4P) 2018-01-17 00:00:00 Completed [facility] Meningococcal Polysaccharide (groups A, C, Y and W-135) conjugate vaccine (MCV4P) 2018-01-17 00:00:00 Completed [facility] Meningococcal Polysaccharide (groups A, C, Y and W-135) conjugate vaccine (MCV4P) 2018-01-17 00:00:00 Completed [facility] Meningococcal Polysaccharide (groups A, C, Y and W-135) conjugate vaccine (MCV4P) 2018-01-17 00:00:00 Completed [facility] Meningococcal Polysaccharide (groups A, C, Y and W-135) conjugate vaccine (MCV4P) 2018-01-17 00:00:00 Completed [facility] Meningococcal Polysaccharide (groups A, C, Y and W-135) conjugate vaccine (MCV4P) 2018-01-17 00:00:00 Completed [facility] Meningococcal Polysaccharide (groups A, C, Y and W-135) conjugate vaccine (MCV4P) 2018-01-17 00:00:00 Completed [facility] Meningococcal Polysaccharide (groups A, C, Y and W-135) conjugate vaccine (MCV4P) 2018-01-17 00:00:00 Completed [facility] Meningococcal Polysaccharide (groups A, C, Y and W-135) conjugate vaccine (MCV4P) 2018-01-17 00:00:00 Completed [facility] Meningococcal Polysaccharide (groups A, C, Y and W-135) conjugate vaccine (MCV4P) 2018-01-17 00:00:00 Completed [facility] Meningococcal Polysaccharide (groups A, C, Y and W-135) conjugate vaccine (MCV4P) 2018-01-17 00:00:00 Completed [facility] Meningococcal Polysaccharide (groups A, C, Y and W-135) conjugate vaccine (MCV4P) 2018-01-17 00:00:00 Completed [facility] Meningococcal Polysaccharide (groups A, C, Y and W-135) conjugate vaccine (MCV4P) 2018-01-17 00:00:00 Completed [facility] Meningococcal Polysaccharide (groups A, C, Y and W-135) conjugate vaccine (MCV4P) 2018-01-17 00:00:00 Completed [facility] Meningococcal Polysaccharide (groups A, C, Y and W-135) conjugate vaccine (MCV4P) 2018-01-17 00:00:00 Completed [facility] Meningococcal Polysaccharide (groups A, C, Y and W-135) conjugate vaccine (MCV4P) 2018-01-17 00:00:00 Completed [facility] Meningococcal Polysaccharide (groups A, C, Y and W-135) conjugate vaccine (MCV4P) 2018-01-17 00:00:00 Completed [facility] Meningococcal Polysaccharide (groups A, C, Y and W-135) conjugate vaccine (MCV4P) 2018-01-17 00:00:00 Completed [facility] Meningococcal Polysaccharide (groups A, C, Y and W-135) conjugate vaccine (MCV4P) 2018-01-17 00:00:00 Completed [facility] Meningococcal Polysaccharide (groups A, C, Y and W-135) conjugate vaccine (MCV4P) 2018-01-17 00:00:00 Completed [facility] Meningococcal Polysaccharide (groups A, C, Y and W-135) conjugate vaccine (MCV4P) 2018-01-17 00:00:00 Completed [facility] Meningococcal Polysaccharide (groups A, C, Y and W-135) conjugate vaccine (MCV4P) 2018-01-17 00:00:00 Completed [facility] Meningococcal Polysaccharide (groups A, C, Y and W-135) conjugate vaccine (MCV4P) 2018-01-17 00:00:00 Completed [facility] Meningococcal Polysaccharide (groups A, C, Y and W-135) conjugate vaccine (MCV4P) 2018-01-17 00:00:00 Completed [facility] Meningococcal Polysaccharide (groups A, C, Y and W-135) conjugate vaccine (MCV4P) 2018-01-17 00:00:00 Completed [facility] Meningococcal Polysaccharide (groups A, C, Y and W-135) conjugate vaccine (MCV4P) 2018-01-17 00:00:00 Completed [facility] Meningococcal Polysaccharide (groups A, C, Y and W-135) conjugate vaccine (MCV4P) 2018-01-17 00:00:00 Completed [facility] Meningococcal Polysaccharide (groups A, C, Y and W-135) conjugate vaccine (MCV4P) 2018-01-17 00:00:00 Completed [facility] Meningococcal Polysaccharide (groups A, C, Y and W-135) conjugate vaccine (MCV4P) 2018-01-17 00:00:00 Completed [facility] Meningococcal Polysaccharide (groups A, C, Y and W-135) conjugate vaccine (MCV4P) 2018-01-17 00:00:00 Completed [facility] Meningococcal Polysaccharide (groups A, C, Y and W-135) conjugate vaccine (MCV4P) 2018-01-17 00:00:00 Completed [facility] Influenza Virus Vaccine Quad IM 3+ YRS 2017-04-12 00:00:00 Completed [facility] Influenza Virus Vaccine Quad IM 3+ YRS 2017-04-12 00:00:00 Completed [facility] Influenza Virus Vaccine Quad IM 3+ YRS 2017-04-12 00:00:00 Completed [facility] Influenza Virus Vaccine Quad IM 3+ YRS 2017-04-12 00:00:00 Completed [facility] Influenza Virus Vaccine Quad IM 3+ YRS 2017-04-12 00:00:00 Completed [facility] Influenza Virus Vaccine Quad IM 3+ YRS 2017-04-12 00:00:00 Completed [facility] Influenza Virus Vaccine Quad IM 3+ YRS 2017-04-12 00:00:00 Completed [facility] Influenza Virus Vaccine Quad IM 3+ YRS 2017-04-12 00:00:00 Completed [facility] Influenza Virus Vaccine Quad IM 3+ YRS 2017-04-12 00:00:00 Completed [facility] Influenza Virus Vaccine Quad IM 3+ YRS 2017-04-12 00:00:00 Completed [facility] Influenza Virus Vaccine Quad IM 3+ YRS 2017-04-12 00:00:00 Completed [facility] Influenza Virus Vaccine Quad IM 3+ YRS 2017-04-12 00:00:00 Completed [facility] Influenza Virus Vaccine Quad IM 3+ YRS 2017-04-12 00:00:00 Completed [facility] Influenza Virus Vaccine Quad IM 3+ YRS 2017-04-12 00:00:00 Completed [facility] Influenza Virus Vaccine Quad IM 3+ YRS 2017-04-12 00:00:00 Completed [facility] Influenza Virus Vaccine Quad IM 3+ YRS 2017-04-12 00:00:00 Completed [facility] Influenza Virus Vaccine Quad IM 3+ YRS 2017-04-12 00:00:00 Completed [facility] Influenza Virus Vaccine Quad IM 3+ YRS 2017-04-12 00:00:00 Completed [facility] Influenza Virus Vaccine Quad IM 3+ YRS 2017-04-12 00:00:00 Completed [facility] Influenza Virus Vaccine Quad IM 3+ YRS 2017-04-12 00:00:00 Completed [facility] Influenza Virus Vaccine Quad IM 3+ YRS 2017-04-12 00:00:00 Completed [facility] Influenza Virus Vaccine Quad IM 3+ YRS 2017-04-12 00:00:00 Completed [facility] Influenza Virus Vaccine Quad IM 3+ YRS 2017-04-12 00:00:00 Completed [facility] Influenza Virus Vaccine Quad IM 3+ YRS 2017-04-12 00:00:00 Completed [facility] Influenza Virus Vaccine Quad IM 3+ YRS 2017-04-12 00:00:00 Completed [facility] Influenza Virus Vaccine Quad IM 3+ YRS 2017-04-12 00:00:00 Completed [facility] Influenza Virus Vaccine Quad IM 3+ YRS 2017-04-12 00:00:00 Completed [facility] Influenza Virus Vaccine Quad IM 3+ YRS 2017-04-12 00:00:00 Completed [facility] Influenza Virus Vaccine Quad IM 3+ YRS 2017-04-12 00:00:00 Completed [facility] Influenza Virus Vaccine Quad IM 3+ YRS 2017-04-12 00:00:00 Completed [facility] Influenza Virus Vaccine Quad IM 3+ YRS 2017-04-12 00:00:00 Completed [facility] Influenza Virus Vaccine Quad IM 3+ YRS 2017-04-12 00:00:00 Completed [facility] Influenza Virus Vaccine Quad IM 3+ YRS 2017-04-12 00:00:00 Completed [facility] Influenza Virus Vaccine Quad IM 3+ YRS 2017-04-12 00:00:00 Completed [facility] Influenza Virus Vaccine Quad IM 3+ YRS 2017-04-12 00:00:00 Completed [facility] Influenza Virus Vaccine Quad IM 3+ YRS 2017-04-12 00:00:00 Completed [facility] Influenza Virus Vaccine Quad IM 3+ YRS 2017-04-12 00:00:00 Completed [facility] Influenza Virus Vaccine Quad IM 3+ YRS 2017-04-12 00:00:00 Completed [facility] Influenza Virus Vaccine Quad IM 3+ YRS 2017-04-12 00:00:00 Completed [facility] Influenza Virus Vaccine Quad IM 3+ YRS 2017-04-12 00:00:00 Completed [facility] Influenza Virus Vaccine Quad IM 3+ YRS 2017-04-12 00:00:00 Completed [facility] Influenza Virus Vaccine Quad IM 3+ YRS 2017-04-12 00:00:00 Completed [facility] Influenza Virus Vaccine Quad IM 3+ YRS 2017-04-12 00:00:00 Completed [facility] Influenza Virus Vaccine Quad IM 3+ YRS 2017-04-12 00:00:00 Completed [facility] Influenza Virus Vaccine Quad IM 3+ YRS 2017-04-12 00:00:00 Completed [facility] Influenza Virus Vaccine Quad IM 3+ YRS 2017-04-12 00:00:00 Completed [facility] Influenza Virus Vaccine Quad IM 3+ YRS 2017-04-12 00:00:00 Completed [facility] Influenza Virus Vaccine Quad IM 3+ YRS 2017-04-12 00:00:00 Completed [facility] Influenza Virus Vaccine Quad IM 3+ YRS 2017-04-12 00:00:00 Completed [facility] Influenza Virus Vaccine Quad IM 3+ YRS 2017-04-12 00:00:00 Completed [facility] Influenza Virus Vaccine Quad IM 3+ YRS 2017-04-12 00:00:00 Completed [facility] Influenza Virus Vaccine Quad IM 3+ YRS 2017-04-12 00:00:00 Completed [facility] Influenza Virus Vaccine Quad IM 3+ YRS 2017-04-12 00:00:00 Completed [facility] Influenza Virus Vaccine Quad IM 3+ YRS 2017-04-12 00:00:00 Completed [facility] Influenza Virus Vaccine Quad IM 3+ YRS 2017-04-12 00:00:00 Completed [facility] Influenza Virus Vaccine Quad IM 3+ YRS 2017-04-12 00:00:00 Completed [facility] Influenza Virus Vaccine Quad IM 3+ YRS 2017-04-12 00:00:00 Completed [facility] Influenza Virus Vaccine Quad IM 3+ YRS 2017-04-12 00:00:00 Completed [facility] Influenza Virus Vaccine Quad IM 3+ YRS 2017-04-12 00:00:00 Completed [facility] Influenza Virus Vaccine Quad IM 3+ YRS 2017-04-12 00:00:00 Completed [facility] Influenza Virus Vaccine Quad IM 3+ YRS 2017-04-12 00:00:00 Completed [facility] Influenza Virus Vaccine Quad IM 3+ YRS 2017-04-12 00:00:00 Completed [facility] Influenza Virus Vaccine Quad IM 3+ YRS 2017-04-12 00:00:00 Completed [facility] Influenza Virus Vaccine Quad IM 3+ YRS 2017-04-12 00:00:00 Completed [facility] Influenza Virus Vaccine Quad IM 3+ YRS 2017-04-12 00:00:00 Completed [facility] Influenza Virus Vaccine Quad IM 3+ YRS 2017-04-12 00:00:00 Completed [facility] Influenza Virus Vaccine Quad IM 3+ YRS 2017-04-12 00:00:00 Completed [facility] Influenza Virus Vaccine Quad IM 3+ YRS 2017-04-12 00:00:00 Completed [facility] Influenza Virus Vaccine Quad IM 3+ YRS 2017-04-12 00:00:00 Completed [facility] Influenza Virus Vaccine Quad IM 3+ YRS 2017-04-12 00:00:00 Completed [facility] Influenza Virus Vaccine Quad IM 3+ YRS 2017-04-12 00:00:00 Completed [facility] Influenza Virus Vaccine Quad IM 3+ YRS 2017-04-12 00:00:00 Completed [facility] Influenza Virus Vaccine Quad IM 3+ YRS 2017-04-12 00:00:00 Completed [facility] Influenza Virus Vaccine Quad IM 3+ YRS 2017-04-12 00:00:00 Completed [facility] Influenza Virus Vaccine Quad IM 3+ YRS 2017-04-12 00:00:00 Completed [facility] Influenza Virus Vaccine Quad IM 3+ YRS 2017-04-12 00:00:00 Completed [facility] Influenza Virus Vaccine Quad IM 3+ YRS 2017-04-12 00:00:00 Completed [facility] Influenza Virus Vaccine Quad IM 3+ YRS 2017-04-12 00:00:00 Completed [facility] Influenza Virus Vaccine Quad IM 3+ YRS 2017-04-12 00:00:00 Completed [facility] Influenza Virus Vaccine Quad IM 3+ YRS 2017-04-12 00:00:00 Completed [facility] Influenza Virus Vaccine Quad IM 3+ YRS 2017-04-12 00:00:00 Completed [facility] Influenza Virus Vaccine Quad IM 3+ YRS 2017-04-12 00:00:00 Completed [facility] Influenza Virus Vaccine Quad IM 3+ YRS 2017-04-12 00:00:00 Completed [facility] Influenza Virus Vaccine Quad IM 3+ YRS 2017-04-12 00:00:00 Completed [facility] Influenza Virus Vaccine Quad IM 3+ YRS 2017-04-12 00:00:00 Completed [facility] Influenza Virus Vaccine Quad IM 3+ YRS 2017-04-12 00:00:00 Completed [facility] Influenza Virus Vaccine Quad IM 3+ YRS 2017-04-12 00:00:00 Completed [facility] Influenza Virus Vaccine Quad IM 3+ YRS 2017-04-12 00:00:00 Completed [facility] Influenza Virus Vaccine Quad IM 3+ YRS 2017-04-12 00:00:00 Completed [facility] Influenza Virus Vaccine Quad IM 3+ YRS 2017-04-12 00:00:00 Completed [facility] Influenza Virus Vaccine Quad IM 3+ YRS 2017-04-12 00:00:00 Completed [facility] Influenza Virus Vaccine Quad IM 3+ YRS 2017-04-12 00:00:00 Completed [facility] Influenza Virus Vaccine Quad IM 3+ YRS 2017-04-12 00:00:00 Completed [facility] Influenza Virus Vaccine Quad IM 3+ YRS 2017-04-12 00:00:00 Completed [facility] Influenza Virus Vaccine Quad IM 3+ YRS 2017-04-12 00:00:00 Completed [facility] Influenza Virus Vaccine Quad IM 3+ YRS 2017-04-12 00:00:00 Completed [facility] Influenza Virus Vaccine Quad IM 3+ YRS 2017-04-12 00:00:00 Completed [facility] Influenza Virus Vaccine Quad IM 3+ YRS 2017-04-12 00:00:00 Completed [facility] Influenza Virus Vaccine Quad IM 3+ YRS 2017-04-12 00:00:00 Completed [facility] Influenza Virus Vaccine Quad IM 3+ YRS 2017-04-12 00:00:00 Completed [facility] Influenza Virus Vaccine Quad IM 3+ YRS 2017-04-12 00:00:00 Completed [facility] Influenza Virus Vaccine Quad IM 3+ YRS 2017-04-12 00:00:00 Completed [facility] Influenza Virus Vaccine Quad IM 3+ YRS 2017-04-12 00:00:00 Completed [facility] Influenza Virus Vaccine Quad IM 3+ YRS 2017-04-12 00:00:00 Completed [facility] Influenza Virus Vaccine Quad IM 3+ YRS 2017-04-12 00:00:00 Completed [facility] HPV9 2017-02-01 00:00:00 Completed [facility] HPV9 2017-02-01 00:00:00 Completed [facility] HPV9 2017-02-01 00:00:00 Completed [facility] HPV9 2017-02-01 00:00:00 Completed [facility] HPV9 2017-02-01 00:00:00 Completed [facility] HPV9 2017-02-01 00:00:00 Completed [facility] HPV9 2017-02-01 00:00:00 Completed [facility] HPV9 2017-02-01 00:00:00 Completed [facility] HPV9 2017-02-01 00:00:00 Completed [facility] HPV9 2017-02-01 00:00:00 Completed [facility] HPV9 2017-02-01 00:00:00 Completed [facility] HPV9 2017-02-01 00:00:00 Completed [facility] HPV9 2017-02-01 00:00:00 Completed [facility] HPV9 2017-02-01 00:00:00 Completed [facility] HPV9 2017-02-01 00:00:00 Completed [facility] HPV9 2017-02-01 00:00:00 Completed [facility] HPV9 2017-02-01 00:00:00 Completed [facility] HPV9 2017-02-01 00:00:00 Completed [facility] HPV9 2017-02-01 00:00:00 Completed [facility] HPV9 2017-02-01 00:00:00 Completed [facility] HPV9 2017-02-01 00:00:00 Completed [facility] HPV9 2017-02-01 00:00:00 Completed [facility] HPV9 2017-02-01 00:00:00 Completed [facility] HPV9 2017-02-01 00:00:00 Completed [facility] HPV9 2017-02-01 00:00:00 Completed [facility] HPV9 2017-02-01 00:00:00 Completed [facility] HPV9 2017-02-01 00:00:00 Completed [facility] HPV9 2017-02-01 00:00:00 Completed [facility] HPV9 2017-02-01 00:00:00 Completed [facility] HPV9 2017-02-01 00:00:00 Completed [facility] HPV9 2017-02-01 00:00:00 Completed [facility] HPV9 2017-02-01 00:00:00 Completed [facility] HPV9 2017-02-01 00:00:00 Completed [facility] HPV9 2017-02-01 00:00:00 Completed [facility] HPV9 2017-02-01 00:00:00 Completed [facility] HPV9 2017-02-01 00:00:00 Completed [facility] HPV9 2017-02-01 00:00:00 Completed [facility] HPV9 2017-02-01 00:00:00 Completed [facility] HPV9 2017-02-01 00:00:00 Completed [facility] HPV9 2017-02-01 00:00:00 Completed [facility] HPV9 2017-02-01 00:00:00 Completed [facility] HPV9 2017-02-01 00:00:00 Completed [facility] HPV9 2017-02-01 00:00:00 Completed [facility] HPV9 2017-02-01 00:00:00 Completed [facility] HPV9 2017-02-01 00:00:00 Completed [facility] HPV9 2017-02-01 00:00:00 Completed [facility] HPV9 2017-02-01 00:00:00 Completed [facility] HPV9 2017-02-01 00:00:00 Completed [facility] HPV9 2017-02-01 00:00:00 Completed [facility] HPV9 2017-02-01 00:00:00 Completed [facility] HPV9 2017-02-01 00:00:00 Completed [facility] HPV9 2017-02-01 00:00:00 Completed [facility] HPV9 2017-02-01 00:00:00 Completed [facility] HPV9 2017-02-01 00:00:00 Completed [facility] HPV9 2017-02-01 00:00:00 Completed [facility] HPV9 2017-02-01 00:00:00 Completed [facility] HPV9 2017-02-01 00:00:00 Completed [facility] HPV9 2017-02-01 00:00:00 Completed [facility] HPV9 2017-02-01 00:00:00 Completed [facility] HPV9 2017-02-01 00:00:00 Completed [facility] HPV9 2017-02-01 00:00:00 Completed [facility] HPV9 2017-02-01 00:00:00 Completed [facility] HPV9 2017-02-01 00:00:00 Completed [facility] HPV9 2017-02-01 00:00:00 Completed [facility] HPV9 2017-02-01 00:00:00 Completed [facility] HPV9 2017-02-01 00:00:00 Completed [facility] HPV9 2017-02-01 00:00:00 Completed [facility] HPV9 2017-02-01 00:00:00 Completed [facility] HPV9 2017-02-01 00:00:00 Completed [facility] HPV9 2017-02-01 00:00:00 Completed [facility] HPV9 2017-02-01 00:00:00 Completed [facility] HPV9 2017-02-01 00:00:00 Completed [facility] HPV9 2017-02-01 00:00:00 Completed [facility] HPV9 2017-02-01 00:00:00 Completed [facility] HPV9 2017-02-01 00:00:00 Completed [facility] HPV9 2017-02-01 00:00:00 Completed [facility] HPV9 2017-02-01 00:00:00 Completed [facility] HPV9 2017-02-01 00:00:00 Completed [facility] HPV9 2017-02-01 00:00:00 Completed [facility] HPV9 2017-02-01 00:00:00 Completed [facility] HPV9 2017-02-01 00:00:00 Completed [facility] HPV9 2017-02-01 00:00:00 Completed [facility] HPV9 2017-02-01 00:00:00 Completed [facility] HPV9 2017-02-01 00:00:00 Completed [facility] HPV9 2017-02-01 00:00:00 Completed [facility] HPV9 2017-02-01 00:00:00 Completed [facility] HPV9 2017-02-01 00:00:00 Completed [facility] HPV9 2017-02-01 00:00:00 Completed [facility] HPV9 2017-02-01 00:00:00 Completed [facility] HPV9 2017-02-01 00:00:00 Completed [facility] HPV9 2017-02-01 00:00:00 Completed [facility] HPV9 2017-02-01 00:00:00 Completed [facility] HPV9 2017-02-01 00:00:00 Completed [facility] HPV9 2017-02-01 00:00:00 Completed [facility] HPV9 2017-02-01 00:00:00 Completed [facility] HPV9 2017-02-01 00:00:00 Completed [facility] HPV9 2017-02-01 00:00:00 Completed [facility] HPV9 2017-02-01 00:00:00 Completed [facility] HPV9 2017-02-01 00:00:00 Completed [facility] HPV9 2017-02-01 00:00:00 Completed [facility] HPV9 2017-02-01 00:00:00 Completed [facility] HPV9 2017-02-01 00:00:00 Completed [facility] HPV9 2017-02-01 00:00:00 Completed [facility] HPV9 2017-02-01 00:00:00 Completed [facility] HPV9 2017-02-01 00:00:00 Completed [facility] HPV 2016-01-20 00:00:00 Completed [facility] HPV 2016-01-20 00:00:00 Completed [facility] HPV 2016-01-20 00:00:00 Completed [facility] HPV 2016-01-20 00:00:00 Completed [facility] HPV 2016-01-20 00:00:00 Completed [facility] HPV 2016-01-20 00:00:00 Completed [facility] HPV 2016-01-20 00:00:00 Completed [facility] HPV 2016-01-20 00:00:00 Completed [facility] HPV 2016-01-20 00:00:00 Completed [facility] HPV 2016-01-20 00:00:00 Completed [facility] HPV 2016-01-20 00:00:00 Completed [facility] HPV 2016-01-20 00:00:00 Completed [facility] HPV 2016-01-20 00:00:00 Completed [facility] HPV 2016-01-20 00:00:00 Completed [facility] HPV 2016-01-20 00:00:00 Completed [facility] HPV 2016-01-20 00:00:00 Completed [facility] HPV 2016-01-20 00:00:00 Completed [facility] HPV 2016-01-20 00:00:00 Completed [facility] HPV 2016-01-20 00:00:00 Completed [facility] HPV 2016-01-20 00:00:00 Completed [facility] HPV 2016-01-20 00:00:00 Completed [facility] HPV 2016-01-20 00:00:00 Completed [facility] HPV 2016-01-20 00:00:00 Completed [facility] HPV 2016-01-20 00:00:00 Completed [facility] HPV 2016-01-20 00:00:00 Completed [facility] HPV 2016-01-20 00:00:00 Completed [facility] HPV 2016-01-20 00:00:00 Completed [facility] HPV 2016-01-20 00:00:00 Completed [facility] HPV 2016-01-20 00:00:00 Completed [facility] HPV 2016-01-20 00:00:00 Completed [facility] HPV 2016-01-20 00:00:00 Completed [facility] HPV 2016-01-20 00:00:00 Completed [facility] HPV 2016-01-20 00:00:00 Completed [facility] HPV 2016-01-20 00:00:00 Completed [facility] HPV 2016-01-20 00:00:00 Completed [facility] HPV 2016-01-20 00:00:00 Completed [facility] HPV 2016-01-20 00:00:00 Completed [facility] HPV 2016-01-20 00:00:00 Completed [facility] HPV 2016-01-20 00:00:00 Completed [facility] HPV 2016-01-20 00:00:00 Completed [facility] HPV 2016-01-20 00:00:00 Completed [facility] HPV 2016-01-20 00:00:00 Completed [facility] HPV 2016-01-20 00:00:00 Completed [facility] HPV 2016-01-20 00:00:00 Completed [facility] HPV 2016-01-20 00:00:00 Completed [facility] HPV 2016-01-20 00:00:00 Completed [facility] HPV 2016-01-20 00:00:00 Completed [facility] HPV 2016-01-20 00:00:00 Completed [facility] HPV 2016-01-20 00:00:00 Completed [facility] HPV 2016-01-20 00:00:00 Completed [facility] HPV 2016-01-20 00:00:00 Completed [facility] HPV 2016-01-20 00:00:00 Completed [facility] HPV 2016-01-20 00:00:00 Completed [facility] HPV 2016-01-20 00:00:00 Completed [facility] HPV 2016-01-20 00:00:00 Completed [facility] HPV 2016-01-20 00:00:00 Completed [facility] HPV 2016-01-20 00:00:00 Completed [facility] HPV 2016-01-20 00:00:00 Completed [facility] HPV 2016-01-20 00:00:00 Completed [facility] HPV 2016-01-20 00:00:00 Completed [facility] HPV 2016-01-20 00:00:00 Completed [facility] HPV 2016-01-20 00:00:00 Completed [facility] HPV 2016-01-20 00:00:00 Completed [facility] HPV 2016-01-20 00:00:00 Completed [facility] HPV 2016-01-20 00:00:00 Completed [facility] HPV 2016-01-20 00:00:00 Completed [facility] HPV 2016-01-20 00:00:00 Completed [facility] HPV 2016-01-20 00:00:00 Completed [facility] HPV 2016-01-20 00:00:00 Completed [facility] HPV 2016-01-20 00:00:00 Completed [facility] HPV 2016-01-20 00:00:00 Completed [facility] HPV 2016-01-20 00:00:00 Completed [facility] HPV 2016-01-20 00:00:00 Completed [facility] HPV 2016-01-20 00:00:00 Completed [facility] HPV 2016-01-20 00:00:00 Completed [facility] HPV 2016-01-20 00:00:00 Completed [facility] HPV 2016-01-20 00:00:00 Completed [facility] HPV 2016-01-20 00:00:00 Completed [facility] HPV 2016-01-20 00:00:00 Completed [facility] HPV 2016-01-20 00:00:00 Completed [facility] HPV 2016-01-20 00:00:00 Completed [facility] HPV 2016-01-20 00:00:00 Completed [facility] HPV 2016-01-20 00:00:00 Completed [facility] HPV 2016-01-20 00:00:00 Completed [facility] HPV 2016-01-20 00:00:00 Completed [facility] HPV 2016-01-20 00:00:00 Completed [facility] HPV 2016-01-20 00:00:00 Completed [facility] HPV 2016-01-20 00:00:00 Completed [facility] HPV 2016-01-20 00:00:00 Completed [facility] HPV 2016-01-20 00:00:00 Completed [facility] HPV 2016-01-20 00:00:00 Completed [facility] HPV 2016-01-20 00:00:00 Completed [facility] HPV 2016-01-20 00:00:00 Completed [facility] HPV 2016-01-20 00:00:00 Completed [facility] HPV 2016-01-20 00:00:00 Completed [facility] HPV 2016-01-20 00:00:00 Completed [facility] HPV 2016-01-20 00:00:00 Completed [facility] HPV 2016-01-20 00:00:00 Completed [facility] HPV 2016-01-20 00:00:00 Completed [facility] HPV 2016-01-20 00:00:00 Completed [facility] HPV 2016-01-20 00:00:00 Completed [facility] HPV 2016-01-20 00:00:00 Completed [facility] HPV 2016-01-20 00:00:00 Completed [facility] HPV 2016-01-20 00:00:00 Completed [facility] HPV 2016-01-20 00:00:00 Completed [facility] Influenza Virus Vaccine Quad IM 3+ YRS 2015-07-08 00:00:00 Completed [facility] HPV9 2015-07-08 00:00:00 Completed [facility] Influenza Virus Vaccine Quad IM 3+ YRS 2015-07-08 00:00:00 Completed [facility] HPV9 2015-07-08 00:00:00 Completed [facility] Influenza Virus Vaccine Quad IM 3+ YRS 2015-07-08 00:00:00 Completed [facility] HPV9 2015-07-08 00:00:00 Completed [facility] Influenza Virus Vaccine Quad IM 3+ YRS 2015-07-08 00:00:00 Completed [facility] HPV9 2015-07-08 00:00:00 Completed [facility] Influenza Virus Vaccine Quad IM 3+ YRS 2015-07-08 00:00:00 Completed [facility] HPV9 2015-07-08 00:00:00 Completed [facility] Influenza Virus Vaccine Quad IM 3+ YRS 2015-07-08 00:00:00 Completed [facility] HPV9 2015-07-08 00:00:00 Completed [facility] Influenza Virus Vaccine Quad IM 3+ YRS 2015-07-08 00:00:00 Completed [facility] HPV9 2015-07-08 00:00:00 Completed [facility] Influenza Virus Vaccine Quad IM 3+ YRS 2015-07-08 00:00:00 Completed [facility] HPV9 2015-07-08 00:00:00 Completed [facility] Influenza Virus Vaccine Quad IM 3+ YRS 2015-07-08 00:00:00 Completed [facility] HPV9 2015-07-08 00:00:00 Completed [facility] Influenza Virus Vaccine Quad IM 3+ YRS 2015-07-08 00:00:00 Completed [facility] HPV9 2015-07-08 00:00:00 Completed [facility] Influenza Virus Vaccine Quad IM 3+ YRS 2015-07-08 00:00:00 Completed [facility] HPV9 2015-07-08 00:00:00 Completed [facility] Influenza Virus Vaccine Quad IM 3+ YRS 2015-07-08 00:00:00 Completed [facility] HPV9 2015-07-08 00:00:00 Completed [facility] Influenza Virus Vaccine Quad IM 3+ YRS 2015-07-08 00:00:00 Completed [facility] HPV9 2015-07-08 00:00:00 Completed [facility] Influenza Virus Vaccine Quad IM 3+ YRS 2015-07-08 00:00:00 Completed [facility] HPV9 2015-07-08 00:00:00 Completed [facility] Influenza Virus Vaccine Quad IM 3+ YRS 2015-07-08 00:00:00 Completed [facility] HPV9 2015-07-08 00:00:00 Completed [facility] Influenza Virus Vaccine Quad IM 3+ YRS 2015-07-08 00:00:00 Completed [facility] HPV9 2015-07-08 00:00:00 Completed [facility] Influenza Virus Vaccine Quad IM 3+ YRS 2015-07-08 00:00:00 Completed [facility] HPV9 2015-07-08 00:00:00 Completed [facility] Influenza Virus Vaccine Quad IM 3+ YRS 2015-07-08 00:00:00 Completed [facility] HPV9 2015-07-08 00:00:00 Completed [facility] Influenza Virus Vaccine Quad IM 3+ YRS 2015-07-08 00:00:00 Completed [facility] HPV9 2015-07-08 00:00:00 Completed [facility] Influenza Virus Vaccine Quad IM 3+ YRS 2015-07-08 00:00:00 Completed [facility] HPV9 2015-07-08 00:00:00 Completed [facility] Influenza Virus Vaccine Quad IM 3+ YRS 2015-07-08 00:00:00 Completed [facility] HPV9 2015-07-08 00:00:00 Completed [facility] Influenza Virus Vaccine Quad IM 3+ YRS 2015-07-08 00:00:00 Completed [facility] HPV9 2015-07-08 00:00:00 Completed [facility] Influenza Virus Vaccine Quad IM 3+ YRS 2015-07-08 00:00:00 Completed [facility] HPV9 2015-07-08 00:00:00 Completed [facility] Influenza Virus Vaccine Quad IM 3+ YRS 2015-07-08 00:00:00 Completed [facility] HPV9 2015-07-08 00:00:00 Completed [facility] Influenza Virus Vaccine Quad IM 3+ YRS 2015-07-08 00:00:00 Completed [facility] HPV9 2015-07-08 00:00:00 Completed [facility] Influenza Virus Vaccine Quad IM 3+ YRS 2015-07-08 00:00:00 Completed [facility] HPV9 2015-07-08 00:00:00 Completed [facility] Influenza Virus Vaccine Quad IM 3+ YRS 2015-07-08 00:00:00 Completed [facility] HPV9 2015-07-08 00:00:00 Completed [facility] Influenza Virus Vaccine Quad IM 3+ YRS 2015-07-08 00:00:00 Completed [facility] HPV9 2015-07-08 00:00:00 Completed [facility] Influenza Virus Vaccine Quad IM 3+ YRS 2015-07-08 00:00:00 Completed [facility] HPV9 2015-07-08 00:00:00 Completed [facility] Influenza Virus Vaccine Quad IM 3+ YRS 2015-07-08 00:00:00 Completed [facility] HPV9 2015-07-08 00:00:00 Completed [facility] Influenza Virus Vaccine Quad IM 3+ YRS 2015-07-08 00:00:00 Completed [facility] HPV9 2015-07-08 00:00:00 Completed [facility] Influenza Virus Vaccine Quad IM 3+ YRS 2015-07-08 00:00:00 Completed [facility] HPV9 2015-07-08 00:00:00 Completed [facility] Influenza Virus Vaccine Quad IM 3+ YRS 2015-07-08 00:00:00 Completed [facility] HPV9 2015-07-08 00:00:00 Completed [facility] Influenza Virus Vaccine Quad IM 3+ YRS 2015-07-08 00:00:00 Completed [facility] HPV9 2015-07-08 00:00:00 Completed [facility] Influenza Virus Vaccine Quad IM 3+ YRS 2015-07-08 00:00:00 Completed [facility] HPV9 2015-07-08 00:00:00 Completed [facility] Influenza Virus Vaccine Quad IM 3+ YRS 2015-07-08 00:00:00 Completed [facility] HPV9 2015-07-08 00:00:00 Completed [facility] Influenza Virus Vaccine Quad IM 3+ YRS 2015-07-08 00:00:00 Completed [facility] HPV9 2015-07-08 00:00:00 Completed [facility] Influenza Virus Vaccine Quad IM 3+ YRS 2015-07-08 00:00:00 Completed [facility] HPV9 2015-07-08 00:00:00 Completed [facility] Influenza Virus Vaccine Quad IM 3+ YRS 2015-07-08 00:00:00 Completed [facility] HPV9 2015-07-08 00:00:00 Completed [facility] Influenza Virus Vaccine Quad IM 3+ YRS 2015-07-08 00:00:00 Completed [facility] HPV9 2015-07-08 00:00:00 Completed [facility] Influenza Virus Vaccine Quad IM 3+ YRS 2015-07-08 00:00:00 Completed [facility] HPV9 2015-07-08 00:00:00 Completed [facility] Influenza Virus Vaccine Quad IM 3+ YRS 2015-07-08 00:00:00 Completed [facility] HPV9 2015-07-08 00:00:00 Completed [facility] Influenza Virus Vaccine Quad IM 3+ YRS 2015-07-08 00:00:00 Completed [facility] HPV9 2015-07-08 00:00:00 Completed [facility] Influenza Virus Vaccine Quad IM 3+ YRS 2015-07-08 00:00:00 Completed [facility] HPV9 2015-07-08 00:00:00 Completed [facility] Influenza Virus Vaccine Quad IM 3+ YRS 2015-07-08 00:00:00 Completed [facility] HPV9 2015-07-08 00:00:00 Completed [facility] Influenza Virus Vaccine Quad IM 3+ YRS 2015-07-08 00:00:00 Completed [facility] HPV9 2015-07-08 00:00:00 Completed [facility] Influenza Virus Vaccine Quad IM 3+ YRS 2015-07-08 00:00:00 Completed [facility] HPV9 2015-07-08 00:00:00 Completed [facility] Influenza Virus Vaccine Quad IM 3+ YRS 2015-07-08 00:00:00 Completed [facility] HPV9 2015-07-08 00:00:00 Completed [facility] Influenza Virus Vaccine Quad IM 3+ YRS 2015-07-08 00:00:00 Completed [facility] HPV9 2015-07-08 00:00:00 Completed [facility] Influenza Virus Vaccine Quad IM 3+ YRS 2015-07-08 00:00:00 Completed [facility] HPV9 2015-07-08 00:00:00 Completed [facility] Influenza Virus Vaccine Quad IM 3+ YRS 2015-07-08 00:00:00 Completed [facility] HPV9 2015-07-08 00:00:00 Completed [facility] Influenza Virus Vaccine Quad IM 3+ YRS 2015-07-08 00:00:00 Completed [facility] HPV9 2015-07-08 00:00:00 Completed [facility] Influenza Virus Vaccine Quad IM 3+ YRS 2015-07-08 00:00:00 Completed [facility] HPV9 2015-07-08 00:00:00 Completed [facility] Influenza Virus Vaccine Quad IM 3+ YRS 2015-07-08 00:00:00 Completed [facility] HPV9 2015-07-08 00:00:00 Completed [facility] Influenza Virus Vaccine Quad IM 3+ YRS 2015-07-08 00:00:00 Completed [facility] HPV9 2015-07-08 00:00:00 Completed [facility] Influenza Virus Vaccine Quad IM 3+ YRS 2015-07-08 00:00:00 Completed [facility] HPV9 2015-07-08 00:00:00 Completed [facility] Influenza Virus Vaccine Quad IM 3+ YRS 2015-07-08 00:00:00 Completed [facility] HPV9 2015-07-08 00:00:00 Completed [facility] Influenza Virus Vaccine Quad IM 3+ YRS 2015-07-08 00:00:00 Completed [facility] HPV9 2015-07-08 00:00:00 Completed [facility] Influenza Virus Vaccine Quad IM 3+ YRS 2015-07-08 00:00:00 Completed [facility] HPV9 2015-07-08 00:00:00 Completed [facility] Influenza Virus Vaccine Quad IM 3+ YRS 2015-07-08 00:00:00 Completed [facility] HPV9 2015-07-08 00:00:00 Completed [facility] Influenza Virus Vaccine Quad IM 3+ YRS 2015-07-08 00:00:00 Completed [facility] HPV9 2015-07-08 00:00:00 Completed [facility] Influenza Virus Vaccine Quad IM 3+ YRS 2015-07-08 00:00:00 Completed [facility] HPV9 2015-07-08 00:00:00 Completed [facility] Influenza Virus Vaccine Quad IM 3+ YRS 2015-07-08 00:00:00 Completed [facility] HPV9 2015-07-08 00:00:00 Completed [facility] Influenza Virus Vaccine Quad IM 3+ YRS 2015-07-08 00:00:00 Completed [facility] HPV9 2015-07-08 00:00:00 Completed [facility] Influenza Virus Vaccine Quad IM 3+ YRS 2015-07-08 00:00:00 Completed [facility] HPV9 2015-07-08 00:00:00 Completed [facility] Influenza Virus Vaccine Quad IM 3+ YRS 2015-07-08 00:00:00 Completed [facility] HPV9 2015-07-08 00:00:00 Completed [facility] Influenza Virus Vaccine Quad IM 3+ YRS 2015-07-08 00:00:00 Completed [facility] HPV9 2015-07-08 00:00:00 Completed [facility] Influenza Virus Vaccine Quad IM 3+ YRS 2015-07-08 00:00:00 Completed [facility] HPV9 2015-07-08 00:00:00 Completed [facility] Influenza Virus Vaccine Quad IM 3+ YRS 2015-07-08 00:00:00 Completed [facility] HPV9 2015-07-08 00:00:00 Completed [facility] Influenza Virus Vaccine Quad IM 3+ YRS 2015-07-08 00:00:00 Completed [facility] HPV9 2015-07-08 00:00:00 Completed [facility] Influenza Virus Vaccine Quad IM 3+ YRS 2015-07-08 00:00:00 Completed [facility] HPV9 2015-07-08 00:00:00 Completed [facility] Influenza Virus Vaccine Quad IM 3+ YRS 2015-07-08 00:00:00 Completed [facility] HPV9 2015-07-08 00:00:00 Completed [facility] Influenza Virus Vaccine Quad IM 3+ YRS 2015-07-08 00:00:00 Completed [facility] HPV9 2015-07-08 00:00:00 Completed [facility] Influenza Virus Vaccine Quad IM 3+ YRS 2015-07-08 00:00:00 Completed [facility] HPV9 2015-07-08 00:00:00 Completed [facility] Influenza Virus Vaccine Quad IM 3+ YRS 2015-07-08 00:00:00 Completed [facility] HPV9 2015-07-08 00:00:00 Completed [facility] Influenza Virus Vaccine Quad IM 3+ YRS 2015-07-08 00:00:00 Completed [facility] HPV9 2015-07-08 00:00:00 Completed [facility] Influenza Virus Vaccine Quad IM 3+ YRS 2015-07-08 00:00:00 Completed [facility] HPV9 2015-07-08 00:00:00 Completed [facility] Influenza Virus Vaccine Quad IM 3+ YRS 2015-07-08 00:00:00 Completed [facility] HPV9 2015-07-08 00:00:00 Completed [facility] Influenza Virus Vaccine Quad IM 3+ YRS 2015-07-08 00:00:00 Completed [facility] HPV9 2015-07-08 00:00:00 Completed [facility] Influenza Virus Vaccine Quad IM 3+ YRS 2015-07-08 00:00:00 Completed [facility] HPV9 2015-07-08 00:00:00 Completed [facility] Influenza Virus Vaccine Quad IM 3+ YRS 2015-07-08 00:00:00 Completed [facility] HPV9 2015-07-08 00:00:00 Completed [facility] Influenza Virus Vaccine Quad IM 3+ YRS 2015-07-08 00:00:00 Completed [facility] HPV9 2015-07-08 00:00:00 Completed [facility] Influenza Virus Vaccine Quad IM 3+ YRS 2015-07-08 00:00:00 Completed [facility] HPV9 2015-07-08 00:00:00 Completed [facility] Influenza Virus Vaccine Quad IM 3+ YRS 2015-07-08 00:00:00 Completed [facility] HPV9 2015-07-08 00:00:00 Completed [facility] Influenza Virus Vaccine Quad IM 3+ YRS 2015-07-08 00:00:00 Completed [facility] HPV9 2015-07-08 00:00:00 Completed [facility] Influenza Virus Vaccine Quad IM 3+ YRS 2015-07-08 00:00:00 Completed [facility] HPV9 2015-07-08 00:00:00 Completed [facility] Influenza Virus Vaccine Quad IM 3+ YRS 2015-07-08 00:00:00 Completed [facility] HPV9 2015-07-08 00:00:00 Completed [facility] Influenza Virus Vaccine Quad IM 3+ YRS 2015-07-08 00:00:00 Completed [facility] HPV9 2015-07-08 00:00:00 Completed [facility] Influenza Virus Vaccine Quad IM 3+ YRS 2015-07-08 00:00:00 Completed [facility] HPV9 2015-07-08 00:00:00 Completed [facility] Influenza Virus Vaccine Quad IM 3+ YRS 2015-07-08 00:00:00 Completed [facility] HPV9 2015-07-08 00:00:00 Completed [facility] Influenza Virus Vaccine Quad IM 3+ YRS 2015-07-08 00:00:00 Completed [facility] HPV9 2015-07-08 00:00:00 Completed [facility] Influenza Virus Vaccine Quad IM 3+ YRS 2015-07-08 00:00:00 Completed [facility] HPV9 2015-07-08 00:00:00 Completed [facility] Influenza Virus Vaccine Quad IM 3+ YRS 2015-07-08 00:00:00 Completed [facility] HPV9 2015-07-08 00:00:00 Completed [facility] Influenza Virus Vaccine Quad IM 3+ YRS 2015-07-08 00:00:00 Completed [facility] HPV9 2015-07-08 00:00:00 Completed [facility] Influenza Virus Vaccine Quad IM 3+ YRS 2015-07-08 00:00:00 Completed [facility] HPV9 2015-07-08 00:00:00 Completed [facility] Influenza Virus Vaccine Quad IM 3+ YRS 2015-07-08 00:00:00 Completed [facility] HPV9 2015-07-08 00:00:00 Completed [facility] Influenza Virus Vaccine Quad IM 3+ YRS 2015-07-08 00:00:00 Completed [facility] HPV9 2015-07-08 00:00:00 Completed [facility] Influenza Virus Vaccine Quad IM 3+ YRS 2015-07-08 00:00:00 Completed [facility] HPV9 2015-07-08 00:00:00 Completed [facility] Influenza Virus Vaccine Quad IM 3+ YRS 2015-07-08 00:00:00 Completed [facility] HPV9 2015-07-08 00:00:00 Completed [facility] Influenza Virus Vaccine Quad IM 3+ YRS 2015-07-08 00:00:00 Completed [facility] HPV9 2015-07-08 00:00:00 Completed [facility] Influenza Virus Vaccine Quad IM 3+ YRS 2015-07-08 00:00:00 Completed [facility] HPV9 2015-07-08 00:00:00 Completed [facility] Influenza Virus Vaccine Quad IM 3+ YRS 2015-07-08 00:00:00 Completed [facility] HPV9 2015-07-08 00:00:00 Completed [facility] Influenza Virus Vaccine Quad IM 3+ YRS 2015-07-08 00:00:00 Completed [facility] HPV9 2015-07-08 00:00:00 Completed [facility] Influenza Virus Vaccine Quad IM 3+ YRS 2015-07-08 00:00:00 Completed [facility] HPV9 2015-07-08 00:00:00 Completed [facility] Influenza Virus Vaccine Quad IM 3+ YRS 2015-07-08 00:00:00 Completed [facility] HPV9 2015-07-08 00:00:00 Completed [facility] Influenza Virus Vaccine (3+ yrs) 2014-04-02 00:00:00 Completed [facility] Influenza Virus Vaccine (3+ yrs) 2014-04-02 00:00:00 Completed [facility] Influenza Virus Vaccine (3+ yrs) 2014-04-02 00:00:00 Completed [facility] Influenza Virus Vaccine (3+ yrs) 2014-04-02 00:00:00 Completed [facility] Influenza Virus Vaccine (3+ yrs) 2014-04-02 00:00:00 Completed [facility] Influenza Virus Vaccine (3+ yrs) 2014-04-02 00:00:00 Completed [facility] Influenza Virus Vaccine (3+ yrs) 2014-04-02 00:00:00 Completed [facility] Influenza Virus Vaccine (3+ yrs) 2014-04-02 00:00:00 Completed [facility] Influenza Virus Vaccine (3+ yrs) 2014-04-02 00:00:00 Completed [facility] Influenza Virus Vaccine (3+ yrs) 2014-04-02 00:00:00 Completed [facility] Influenza Virus Vaccine (3+ yrs) 2014-04-02 00:00:00 Completed [facility] Influenza Virus Vaccine (3+ yrs) 2014-04-02 00:00:00 Completed [facility] Influenza Virus Vaccine (3+ yrs) 2014-04-02 00:00:00 Completed [facility] Influenza Virus Vaccine (3+ yrs) 2014-04-02 00:00:00 Completed [facility] Influenza Virus Vaccine (3+ yrs) 2014-04-02 00:00:00 Completed [facility] Influenza Virus Vaccine (3+ yrs) 2014-04-02 00:00:00 Completed [facility] Influenza Virus Vaccine (3+ yrs) 2014-04-02 00:00:00 Completed [facility] Influenza Virus Vaccine (3+ yrs) 2014-04-02 00:00:00 Completed [facility] Influenza Virus Vaccine (3+ yrs) 2014-04-02 00:00:00 Completed [facility] Influenza Virus Vaccine (3+ yrs) 2014-04-02 00:00:00 Completed [facility] Influenza Virus Vaccine (3+ yrs) 2014-04-02 00:00:00 Completed [facility] Influenza Virus Vaccine (3+ yrs) 2014-04-02 00:00:00 Completed [facility] Influenza Virus Vaccine (3+ yrs) 2014-04-02 00:00:00 Completed [facility] Influenza Virus Vaccine (3+ yrs) 2014-04-02 00:00:00 Completed [facility] Influenza Virus Vaccine (3+ yrs) 2014-04-02 00:00:00 Completed [facility] Influenza Virus Vaccine (3+ yrs) 2014-04-02 00:00:00 Completed [facility] Influenza Virus Vaccine (3+ yrs) 2014-04-02 00:00:00 Completed [facility] Influenza Virus Vaccine (3+ yrs) 2014-04-02 00:00:00 Completed [facility] Influenza Virus Vaccine (3+ yrs) 2014-04-02 00:00:00 Completed [facility] Influenza Virus Vaccine (3+ yrs) 2014-04-02 00:00:00 Completed [facility] Influenza Virus Vaccine (3+ yrs) 2014-04-02 00:00:00 Completed [facility] Influenza Virus Vaccine (3+ yrs) 2014-04-02 00:00:00 Completed [facility] Influenza Virus Vaccine (3+ yrs) 2014-04-02 00:00:00 Completed [facility] Influenza Virus Vaccine (3+ yrs) 2014-04-02 00:00:00 Completed [facility] Influenza Virus Vaccine (3+ yrs) 2014-04-02 00:00:00 Completed [facility] Influenza Virus Vaccine (3+ yrs) 2014-04-02 00:00:00 Completed [facility] Influenza Virus Vaccine (3+ yrs) 2014-04-02 00:00:00 Completed [facility] Influenza Virus Vaccine (3+ yrs) 2014-04-02 00:00:00 Completed [facility] Influenza Virus Vaccine (3+ yrs) 2014-04-02 00:00:00 Completed [facility] Influenza Virus Vaccine (3+ yrs) 2014-04-02 00:00:00 Completed [facility] Influenza Virus Vaccine (3+ yrs) 2014-04-02 00:00:00 Completed [facility] Influenza Virus Vaccine (3+ yrs) 2014-04-02 00:00:00 Completed [facility] Influenza Virus Vaccine (3+ yrs) 2014-04-02 00:00:00 Completed [facility] Influenza Virus Vaccine (3+ yrs) 2014-04-02 00:00:00 Completed [facility] Influenza Virus Vaccine (3+ yrs) 2014-04-02 00:00:00 Completed [facility] Influenza Virus Vaccine (3+ yrs) 2014-04-02 00:00:00 Completed [facility] Influenza Virus Vaccine (3+ yrs) 2014-04-02 00:00:00 Completed [facility] Influenza Virus Vaccine (3+ yrs) 2014-04-02 00:00:00 Completed [facility] Influenza Virus Vaccine (3+ yrs) 2014-04-02 00:00:00 Completed [facility] Influenza Virus Vaccine (3+ yrs) 2014-04-02 00:00:00 Completed [facility] Influenza Virus Vaccine (3+ yrs) 2014-04-02 00:00:00 Completed [facility] Influenza Virus Vaccine (3+ yrs) 2014-04-02 00:00:00 Completed [facility] Influenza Virus Vaccine (3+ yrs) 2014-04-02 00:00:00 Completed [facility] Influenza Virus Vaccine (3+ yrs) 2014-04-02 00:00:00 Completed [facility] Influenza Virus Vaccine (3+ yrs) 2014-04-02 00:00:00 Completed [facility] Influenza Virus Vaccine (3+ yrs) 2014-04-02 00:00:00 Completed [facility] Influenza Virus Vaccine (3+ yrs) 2014-04-02 00:00:00 Completed [facility] Influenza Virus Vaccine (3+ yrs) 2014-04-02 00:00:00 Completed [facility] Influenza Virus Vaccine (3+ yrs) 2014-04-02 00:00:00 Completed [facility] Influenza Virus Vaccine (3+ yrs) 2014-04-02 00:00:00 Completed [facility] Influenza Virus Vaccine (3+ yrs) 2014-04-02 00:00:00 Completed [facility] Influenza Virus Vaccine (3+ yrs) 2014-04-02 00:00:00 Completed [facility] Influenza Virus Vaccine (3+ yrs) 2014-04-02 00:00:00 Completed [facility] Influenza Virus Vaccine (3+ yrs) 2014-04-02 00:00:00 Completed [facility] Influenza Virus Vaccine (3+ yrs) 2014-04-02 00:00:00 Completed [facility] Influenza Virus Vaccine (3+ yrs) 2014-04-02 00:00:00 Completed [facility] Influenza Virus Vaccine (3+ yrs) 2014-04-02 00:00:00 Completed [facility] Influenza Virus Vaccine (3+ yrs) 2014-04-02 00:00:00 Completed [facility] Influenza Virus Vaccine (3+ yrs) 2014-04-02 00:00:00 Completed [facility] Influenza Virus Vaccine (3+ yrs) 2014-04-02 00:00:00 Completed [facility] Influenza Virus Vaccine (3+ yrs) 2014-04-02 00:00:00 Completed [facility] Influenza Virus Vaccine (3+ yrs) 2014-04-02 00:00:00 Completed [facility] Influenza Virus Vaccine (3+ yrs) 2014-04-02 00:00:00 Completed [facility] Influenza Virus Vaccine (3+ yrs) 2014-04-02 00:00:00 Completed [facility] Influenza Virus Vaccine (3+ yrs) 2014-04-02 00:00:00 Completed [facility] Influenza Virus Vaccine (3+ yrs) 2014-04-02 00:00:00 Completed [facility] Influenza Virus Vaccine (3+ yrs) 2014-04-02 00:00:00 Completed [facility] Influenza Virus Vaccine (3+ yrs) 2014-04-02 00:00:00 Completed [facility] Influenza Virus Vaccine (3+ yrs) 2014-04-02 00:00:00 Completed [facility] Influenza Virus Vaccine (3+ yrs) 2014-04-02 00:00:00 Completed [facility] Influenza Virus Vaccine (3+ yrs) 2014-04-02 00:00:00 Completed [facility] Influenza Virus Vaccine (3+ yrs) 2014-04-02 00:00:00 Completed [facility] Influenza Virus Vaccine (3+ yrs) 2014-04-02 00:00:00 Completed [facility] Influenza Virus Vaccine (3+ yrs) 2014-04-02 00:00:00 Completed [facility] Influenza Virus Vaccine (3+ yrs) 2014-04-02 00:00:00 Completed [facility] Influenza Virus Vaccine (3+ yrs) 2014-04-02 00:00:00 Completed [facility] Influenza Virus Vaccine (3+ yrs) 2014-04-02 00:00:00 Completed [facility] Influenza Virus Vaccine (3+ yrs) 2014-04-02 00:00:00 Completed [facility] Influenza Virus Vaccine (3+ yrs) 2014-04-02 00:00:00 Completed [facility] Influenza Virus Vaccine (3+ yrs) 2014-04-02 00:00:00 Completed [facility] Influenza Virus Vaccine (3+ yrs) 2014-04-02 00:00:00 Completed [facility] Influenza Virus Vaccine (3+ yrs) 2014-04-02 00:00:00 Completed [facility] Influenza Virus Vaccine (3+ yrs) 2014-04-02 00:00:00 Completed [facility] Influenza Virus Vaccine (3+ yrs) 2014-04-02 00:00:00 Completed [facility] Influenza Virus Vaccine (3+ yrs) 2014-04-02 00:00:00 Completed [facility] Influenza Virus Vaccine (3+ yrs) 2014-04-02 00:00:00 Completed [facility] Influenza Virus Vaccine (3+ yrs) 2014-04-02 00:00:00 Completed [facility] Influenza Virus Vaccine (3+ yrs) 2014-04-02 00:00:00 Completed [facility] Influenza Virus Vaccine (3+ yrs) 2014-04-02 00:00:00 Completed [facility] Influenza Virus Vaccine (3+ yrs) 2014-04-02 00:00:00 Completed [facility] Influenza Virus Vaccine (3+ yrs) 2014-04-02 00:00:00 Completed [facility] Influenza Virus Vaccine (3+ yrs) 2014-04-02 00:00:00 Completed [facility] Influenza Virus Vaccine (3+ yrs) 2014-04-02 00:00:00 Completed [facility] Influenza Virus Vaccine (3+ yrs) 2014-04-02 00:00:00 Completed [facility] Influenza Virus Vaccine (3+ yrs) 2014-04-02 00:00:00 Completed [facility] Influenza Virus Vaccine (3+ yrs) 2013-05-22 00:00:00 Completed [facility] Meningococcal Polysaccharide (groups A, C, Y and W-135) conjugate vaccine (MCV4P) 2013-05-22 00:00:00 Completed [facility] TDAP 2013-05-22 00:00:00 Completed [facility] Influenza Virus Vaccine (3+ yrs) 2013-05-22 00:00:00 Completed [facility] Meningococcal Polysaccharide (groups A, C, Y and W-135) conjugate vaccine (MCV4P) 2013-05-22 00:00:00 Completed [facility] TDAP 2013-05-22 00:00:00 Completed [facility] Influenza Virus Vaccine (3+ yrs) 2013-05-22 00:00:00 Completed [facility] Meningococcal Polysaccharide (groups A, C, Y and W-135) conjugate vaccine (MCV4P) 2013-05-22 00:00:00 Completed [facility] TDAP 2013-05-22 00:00:00 Completed [facility] Influenza Virus Vaccine (3+ yrs) 2013-05-22 00:00:00 Completed [facility] Meningococcal Polysaccharide (groups A, C, Y and W-135) conjugate vaccine (MCV4P) 2013-05-22 00:00:00 Completed [facility] TDAP 2013-05-22 00:00:00 Completed [facility] Influenza Virus Vaccine (3+ yrs) 2013-05-22 00:00:00 Completed [facility] Meningococcal Polysaccharide (groups A, C, Y and W-135) conjugate vaccine (MCV4P) 2013-05-22 00:00:00 Completed [facility] TDAP 2013-05-22 00:00:00 Completed [facility] Influenza Virus Vaccine (3+ yrs) 2013-05-22 00:00:00 Completed [facility] Meningococcal Polysaccharide (groups A, C, Y and W-135) conjugate vaccine (MCV4P) 2013-05-22 00:00:00 Completed [facility] TDAP 2013-05-22 00:00:00 Completed [facility] Influenza Virus Vaccine (3+ yrs) 2013-05-22 00:00:00 Completed [facility] Meningococcal Polysaccharide (groups A, C, Y and W-135) conjugate vaccine (MCV4P) 2013-05-22 00:00:00 Completed [facility] TDAP 2013-05-22 00:00:00 Completed [facility] Influenza Virus Vaccine (3+ yrs) 2013-05-22 00:00:00 Completed [facility] Meningococcal Polysaccharide (groups A, C, Y and W-135) conjugate vaccine (MCV4P) 2013-05-22 00:00:00 Completed [facility] TDAP 2013-05-22 00:00:00 Completed [facility] Influenza Virus Vaccine (3+ yrs) 2013-05-22 00:00:00 Completed [facility] Meningococcal Polysaccharide (groups A, C, Y and W-135) conjugate vaccine (MCV4P) 2013-05-22 00:00:00 Completed [facility] TDAP 2013-05-22 00:00:00 Completed [facility] Influenza Virus Vaccine (3+ yrs) 2013-05-22 00:00:00 Completed [facility] Meningococcal Polysaccharide (groups A, C, Y and W-135) conjugate vaccine (MCV4P) 2013-05-22 00:00:00 Completed [facility] TDAP 2013-05-22 00:00:00 Completed [facility] Influenza Virus Vaccine (3+ yrs) 2013-05-22 00:00:00 Completed [facility] Meningococcal Polysaccharide (groups A, C, Y and W-135) conjugate vaccine (MCV4P) 2013-05-22 00:00:00 Completed [facility] TDAP 2013-05-22 00:00:00 Completed [facility] Influenza Virus Vaccine (3+ yrs) 2013-05-22 00:00:00 Completed [facility] Meningococcal Polysaccharide (groups A, C, Y and W-135) conjugate vaccine (MCV4P) 2013-05-22 00:00:00 Completed [facility] TDAP 2013-05-22 00:00:00 Completed [facility] Influenza Virus Vaccine (3+ yrs) 2013-05-22 00:00:00 Completed [facility] Meningococcal Polysaccharide (groups A, C, Y and W-135) conjugate vaccine (MCV4P) 2013-05-22 00:00:00 Completed [facility] TDAP 2013-05-22 00:00:00 Completed [facility] Influenza Virus Vaccine (3+ yrs) 2013-05-22 00:00:00 Completed [facility] Meningococcal Polysaccharide (groups A, C, Y and W-135) conjugate vaccine (MCV4P) 2013-05-22 00:00:00 Completed [facility] TDAP 2013-05-22 00:00:00 Completed [facility] Influenza Virus Vaccine (3+ yrs) 2013-05-22 00:00:00 Completed [facility] Meningococcal Polysaccharide (groups A, C, Y and W-135) conjugate vaccine (MCV4P) 2013-05-22 00:00:00 Completed [facility] TDAP 2013-05-22 00:00:00 Completed [facility] Influenza Virus Vaccine (3+ yrs) 2013-05-22 00:00:00 Completed [facility] Meningococcal Polysaccharide (groups A, C, Y and W-135) conjugate vaccine (MCV4P) 2013-05-22 00:00:00 Completed [facility] TDAP 2013-05-22 00:00:00 Completed [facility] Influenza Virus Vaccine (3+ yrs) 2013-05-22 00:00:00 Completed [facility] Meningococcal Polysaccharide (groups A, C, Y and W-135) conjugate vaccine (MCV4P) 2013-05-22 00:00:00 Completed [facility] TDAP 2013-05-22 00:00:00 Completed [facility] Influenza Virus Vaccine (3+ yrs) 2013-05-22 00:00:00 Completed [facility] Meningococcal Polysaccharide (groups A, C, Y and W-135) conjugate vaccine (MCV4P) 2013-05-22 00:00:00 Completed [facility] TDAP 2013-05-22 00:00:00 Completed [facility] Influenza Virus Vaccine (3+ yrs) 2013-05-22 00:00:00 Completed [facility] Meningococcal Polysaccharide (groups A, C, Y and W-135) conjugate vaccine (MCV4P) 2013-05-22 00:00:00 Completed [facility] TDAP 2013-05-22 00:00:00 Completed [facility] Influenza Virus Vaccine (3+ yrs) 2013-05-22 00:00:00 Completed [facility] Meningococcal Polysaccharide (groups A, C, Y and W-135) conjugate vaccine (MCV4P) 2013-05-22 00:00:00 Completed [facility] TDAP 2013-05-22 00:00:00 Completed [facility] Influenza Virus Vaccine (3+ yrs) 2013-05-22 00:00:00 Completed [facility] Meningococcal Polysaccharide (groups A, C, Y and W-135) conjugate vaccine (MCV4P) 2013-05-22 00:00:00 Completed [facility] TDAP 2013-05-22 00:00:00 Completed [facility] Influenza Virus Vaccine (3+ yrs) 2013-05-22 00:00:00 Completed [facility] Meningococcal Polysaccharide (groups A, C, Y and W-135) conjugate vaccine (MCV4P) 2013-05-22 00:00:00 Completed [facility] TDAP 2013-05-22 00:00:00 Completed [facility] Influenza Virus Vaccine (3+ yrs) 2013-05-22 00:00:00 Completed [facility] Meningococcal Polysaccharide (groups A, C, Y and W-135) conjugate vaccine (MCV4P) 2013-05-22 00:00:00 Completed [facility] TDAP 2013-05-22 00:00:00 Completed [facility] Influenza Virus Vaccine (3+ yrs) 2013-05-22 00:00:00 Completed [facility] Meningococcal Polysaccharide (groups A, C, Y and W-135) conjugate vaccine (MCV4P) 2013-05-22 00:00:00 Completed [facility] TDAP 2013-05-22 00:00:00 Completed [facility] Influenza Virus Vaccine (3+ yrs) 2013-05-22 00:00:00 Completed [facility] Meningococcal Polysaccharide (groups A, C, Y and W-135) conjugate vaccine (MCV4P) 2013-05-22 00:00:00 Completed [facility] TDAP 2013-05-22 00:00:00 Completed [facility] Influenza Virus Vaccine (3+ yrs) 2013-05-22 00:00:00 Completed [facility] Meningococcal Polysaccharide (groups A, C, Y and W-135) conjugate vaccine (MCV4P) 2013-05-22 00:00:00 Completed [facility] TDAP 2013-05-22 00:00:00 Completed [facility] Influenza Virus Vaccine (3+ yrs) 2013-05-22 00:00:00 Completed [facility] Meningococcal Polysaccharide (groups A, C, Y and W-135) conjugate vaccine (MCV4P) 2013-05-22 00:00:00 Completed [facility] TDAP 2013-05-22 00:00:00 Completed [facility] Influenza Virus Vaccine (3+ yrs) 2013-05-22 00:00:00 Completed [facility] Meningococcal Polysaccharide (groups A, C, Y and W-135) conjugate vaccine (MCV4P) 2013-05-22 00:00:00 Completed [facility] TDAP 2013-05-22 00:00:00 Completed [facility] Influenza Virus Vaccine (3+ yrs) 2013-05-22 00:00:00 Completed [facility] Meningococcal Polysaccharide (groups A, C, Y and W-135) conjugate vaccine (MCV4P) 2013-05-22 00:00:00 Completed [facility] TDAP 2013-05-22 00:00:00 Completed [facility] Influenza Virus Vaccine (3+ yrs) 2013-05-22 00:00:00 Completed [facility] Meningococcal Polysaccharide (groups A, C, Y and W-135) conjugate vaccine (MCV4P) 2013-05-22 00:00:00 Completed [facility] TDAP 2013-05-22 00:00:00 Completed [facility] Influenza Virus Vaccine (3+ yrs) 2013-05-22 00:00:00 Completed [facility] Meningococcal Polysaccharide (groups A, C, Y and W-135) conjugate vaccine (MCV4P) 2013-05-22 00:00:00 Completed [facility] TDAP 2013-05-22 00:00:00 Completed [facility] Influenza Virus Vaccine (3+ yrs) 2013-05-22 00:00:00 Completed [facility] Meningococcal Polysaccharide (groups A, C, Y and W-135) conjugate vaccine (MCV4P) 2013-05-22 00:00:00 Completed [facility] TDAP 2013-05-22 00:00:00 Completed [facility] Influenza Virus Vaccine (3+ yrs) 2013-05-22 00:00:00 Completed [facility] Meningococcal Polysaccharide (groups A, C, Y and W-135) conjugate vaccine (MCV4P) 2013-05-22 00:00:00 Completed [facility] TDAP 2013-05-22 00:00:00 Completed [facility] Influenza Virus Vaccine (3+ yrs) 2013-05-22 00:00:00 Completed [facility] Meningococcal Polysaccharide (groups A, C, Y and W-135) conjugate vaccine (MCV4P) 2013-05-22 00:00:00 Completed [facility] TDAP 2013-05-22 00:00:00 Completed [facility] Influenza Virus Vaccine (3+ yrs) 2013-05-22 00:00:00 Completed [facility] Meningococcal Polysaccharide (groups A, C, Y and W-135) conjugate vaccine (MCV4P) 2013-05-22 00:00:00 Completed [facility] TDAP 2013-05-22 00:00:00 Completed [facility] Influenza Virus Vaccine (3+ yrs) 2013-05-22 00:00:00 Completed [facility] Meningococcal Polysaccharide (groups A, C, Y and W-135) conjugate vaccine (MCV4P) 2013-05-22 00:00:00 Completed [facility] TDAP 2013-05-22 00:00:00 Completed [facility] Influenza Virus Vaccine (3+ yrs) 2013-05-22 00:00:00 Completed [facility] Meningococcal Polysaccharide (groups A, C, Y and W-135) conjugate vaccine (MCV4P) 2013-05-22 00:00:00 Completed [facility] TDAP 2013-05-22 00:00:00 Completed [facility] Influenza Virus Vaccine (3+ yrs) 2013-05-22 00:00:00 Completed [facility] Meningococcal Polysaccharide (groups A, C, Y and W-135) conjugate vaccine (MCV4P) 2013-05-22 00:00:00 Completed [facility] TDAP 2013-05-22 00:00:00 Completed [facility] Influenza Virus Vaccine (3+ yrs) 2013-05-22 00:00:00 Completed [facility] Meningococcal Polysaccharide (groups A, C, Y and W-135) conjugate vaccine (MCV4P) 2013-05-22 00:00:00 Completed [facility] TDAP 2013-05-22 00:00:00 Completed [facility] Influenza Virus Vaccine (3+ yrs) 2013-05-22 00:00:00 Completed [facility] Meningococcal Polysaccharide (groups A, C, Y and W-135) conjugate vaccine (MCV4P) 2013-05-22 00:00:00 Completed [facility] TDAP 2013-05-22 00:00:00 Completed [facility] Influenza Virus Vaccine (3+ yrs) 2013-05-22 00:00:00 Completed [facility] Meningococcal Polysaccharide (groups A, C, Y and W-135) conjugate vaccine (MCV4P) 2013-05-22 00:00:00 Completed [facility] TDAP 2013-05-22 00:00:00 Completed [facility] Influenza Virus Vaccine (3+ yrs) 2013-05-22 00:00:00 Completed [facility] Meningococcal Polysaccharide (groups A, C, Y and W-135) conjugate vaccine (MCV4P) 2013-05-22 00:00:00 Completed [facility] TDAP 2013-05-22 00:00:00 Completed [facility] Influenza Virus Vaccine (3+ yrs) 2013-05-22 00:00:00 Completed [facility] Meningococcal Polysaccharide (groups A, C, Y and W-135) conjugate vaccine (MCV4P) 2013-05-22 00:00:00 Completed [facility] TDAP 2013-05-22 00:00:00 Completed [facility] Influenza Virus Vaccine (3+ yrs) 2013-05-22 00:00:00 Completed [facility] Meningococcal Polysaccharide (groups A, C, Y and W-135) conjugate vaccine (MCV4P) 2013-05-22 00:00:00 Completed [facility] TDAP 2013-05-22 00:00:00 Completed [facility] Influenza Virus Vaccine (3+ yrs) 2013-05-22 00:00:00 Completed [facility] Meningococcal Polysaccharide (groups A, C, Y and W-135) conjugate vaccine (MCV4P) 2013-05-22 00:00:00 Completed [facility] TDAP 2013-05-22 00:00:00 Completed [facility] Influenza Virus Vaccine (3+ yrs) 2013-05-22 00:00:00 Completed [facility] Meningococcal Polysaccharide (groups A, C, Y and W-135) conjugate vaccine (MCV4P) 2013-05-22 00:00:00 Completed [facility] TDAP 2013-05-22 00:00:00 Completed [facility] Influenza Virus Vaccine (3+ yrs) 2013-05-22 00:00:00 Completed [facility] Meningococcal Polysaccharide (groups A, C, Y and W-135) conjugate vaccine (MCV4P) 2013-05-22 00:00:00 Completed [facility] TDAP 2013-05-22 00:00:00 Completed [facility] Influenza Virus Vaccine (3+ yrs) 2013-05-22 00:00:00 Completed [facility] Meningococcal Polysaccharide (groups A, C, Y and W-135) conjugate vaccine (MCV4P) 2013-05-22 00:00:00 Completed [facility] TDAP 2013-05-22 00:00:00 Completed [facility] Influenza Virus Vaccine (3+ yrs) 2013-05-22 00:00:00 Completed [facility] Meningococcal Polysaccharide (groups A, C, Y and W-135) conjugate vaccine (MCV4P) 2013-05-22 00:00:00 Completed [facility] TDAP 2013-05-22 00:00:00 Completed [facility] Influenza Virus Vaccine (3+ yrs) 2013-05-22 00:00:00 Completed [facility] Meningococcal Polysaccharide (groups A, C, Y and W-135) conjugate vaccine (MCV4P) 2013-05-22 00:00:00 Completed [facility] TDAP 2013-05-22 00:00:00 Completed [facility] Influenza Virus Vaccine (3+ yrs) 2013-05-22 00:00:00 Completed [facility] Meningococcal Polysaccharide (groups A, C, Y and W-135) conjugate vaccine (MCV4P) 2013-05-22 00:00:00 Completed [facility] TDAP 2013-05-22 00:00:00 Completed [facility] Influenza Virus Vaccine (3+ yrs) 2013-05-22 00:00:00 Completed [facility] Meningococcal Polysaccharide (groups A, C, Y and W-135) conjugate vaccine (MCV4P) 2013-05-22 00:00:00 Completed [facility] TDAP 2013-05-22 00:00:00 Completed [facility] Influenza Virus Vaccine (3+ yrs) 2013-05-22 00:00:00 Completed [facility] Meningococcal Polysaccharide (groups A, C, Y and W-135) conjugate vaccine (MCV4P) 2013-05-22 00:00:00 Completed [facility] TDAP 2013-05-22 00:00:00 Completed [facility] Influenza Virus Vaccine (3+ yrs) 2013-05-22 00:00:00 Completed [facility] Meningococcal Polysaccharide (groups A, C, Y and W-135) conjugate vaccine (MCV4P) 2013-05-22 00:00:00 Completed [facility] TDAP 2013-05-22 00:00:00 Completed [facility] Influenza Virus Vaccine (3+ yrs) 2013-05-22 00:00:00 Completed [facility] Meningococcal Polysaccharide (groups A, C, Y and W-135) conjugate vaccine (MCV4P) 2013-05-22 00:00:00 Completed [facility] TDAP 2013-05-22 00:00:00 Completed [facility] Influenza Virus Vaccine (3+ yrs) 2013-05-22 00:00:00 Completed [facility] Meningococcal Polysaccharide (groups A, C, Y and W-135) conjugate vaccine (MCV4P) 2013-05-22 00:00:00 Completed [facility] TDAP 2013-05-22 00:00:00 Completed [facility] Influenza Virus Vaccine (3+ yrs) 2013-05-22 00:00:00 Completed [facility] Meningococcal Polysaccharide (groups A, C, Y and W-135) conjugate vaccine (MCV4P) 2013-05-22 00:00:00 Completed [facility] TDAP 2013-05-22 00:00:00 Completed [facility] Influenza Virus Vaccine (3+ yrs) 2013-05-22 00:00:00 Completed [facility] Meningococcal Polysaccharide (groups A, C, Y and W-135) conjugate vaccine (MCV4P) 2013-05-22 00:00:00 Completed [facility] TDAP 2013-05-22 00:00:00 Completed [facility] Influenza Virus Vaccine (3+ yrs) 2013-05-22 00:00:00 Completed [facility] Meningococcal Polysaccharide (groups A, C, Y and W-135) conjugate vaccine (MCV4P) 2013-05-22 00:00:00 Completed [facility] TDAP 2013-05-22 00:00:00 Completed [facility] Influenza Virus Vaccine (3+ yrs) 2013-05-22 00:00:00 Completed [facility] Meningococcal Polysaccharide (groups A, C, Y and W-135) conjugate vaccine (MCV4P) 2013-05-22 00:00:00 Completed [facility] TDAP 2013-05-22 00:00:00 Completed [facility] Influenza Virus Vaccine (3+ yrs) 2013-05-22 00:00:00 Completed [facility] Meningococcal Polysaccharide (groups A, C, Y and W-135) conjugate vaccine (MCV4P) 2013-05-22 00:00:00 Completed [facility] TDAP 2013-05-22 00:00:00 Completed [facility] Influenza Virus Vaccine (3+ yrs) 2013-05-22 00:00:00 Completed [facility] Meningococcal Polysaccharide (groups A, C, Y and W-135) conjugate vaccine (MCV4P) 2013-05-22 00:00:00 Completed [facility] TDAP 2013-05-22 00:00:00 Completed [facility] Influenza Virus Vaccine (3+ yrs) 2013-05-22 00:00:00 Completed [facility] Meningococcal Polysaccharide (groups A, C, Y and W-135) conjugate vaccine (MCV4P) 2013-05-22 00:00:00 Completed [facility] TDAP 2013-05-22 00:00:00 Completed [facility] Influenza Virus Vaccine (3+ yrs) 2013-05-22 00:00:00 Completed [facility] Meningococcal Polysaccharide (groups A, C, Y and W-135) conjugate vaccine (MCV4P) 2013-05-22 00:00:00 Completed [facility] TDAP 2013-05-22 00:00:00 Completed [facility] Influenza Virus Vaccine (3+ yrs) 2013-05-22 00:00:00 Completed [facility] Meningococcal Polysaccharide (groups A, C, Y and W-135) conjugate vaccine (MCV4P) 2013-05-22 00:00:00 Completed [facility] TDAP 2013-05-22 00:00:00 Completed [facility] Influenza Virus Vaccine (3+ yrs) 2013-05-22 00:00:00 Completed [facility] Meningococcal Polysaccharide (groups A, C, Y and W-135) conjugate vaccine (MCV4P) 2013-05-22 00:00:00 Completed [facility] TDAP 2013-05-22 00:00:00 Completed [facility] Influenza Virus Vaccine (3+ yrs) 2013-05-22 00:00:00 Completed [facility] Meningococcal Polysaccharide (groups A, C, Y and W-135) conjugate vaccine (MCV4P) 2013-05-22 00:00:00 Completed [facility] TDAP 2013-05-22 00:00:00 Completed [facility] Influenza Virus Vaccine (3+ yrs) 2013-05-22 00:00:00 Completed [facility] Meningococcal Polysaccharide (groups A, C, Y and W-135) conjugate vaccine (MCV4P) 2013-05-22 00:00:00 Completed [facility] TDAP 2013-05-22 00:00:00 Completed [facility] Influenza Virus Vaccine (3+ yrs) 2013-05-22 00:00:00 Completed [facility] Meningococcal Polysaccharide (groups A, C, Y and W-135) conjugate vaccine (MCV4P) 2013-05-22 00:00:00 Completed [facility] TDAP 2013-05-22 00:00:00 Completed [facility] Influenza Virus Vaccine (3+ yrs) 2013-05-22 00:00:00 Completed [facility] Meningococcal Polysaccharide (groups A, C, Y and W-135) conjugate vaccine (MCV4P) 2013-05-22 00:00:00 Completed [facility] TDAP 2013-05-22 00:00:00 Completed [facility] Influenza Virus Vaccine (3+ yrs) 2013-05-22 00:00:00 Completed [facility] Meningococcal Polysaccharide (groups A, C, Y and W-135) conjugate vaccine (MCV4P) 2013-05-22 00:00:00 Completed [facility] TDAP 2013-05-22 00:00:00 Completed [facility] Influenza Virus Vaccine (3+ yrs) 2013-05-22 00:00:00 Completed [facility] Meningococcal Polysaccharide (groups A, C, Y and W-135) conjugate vaccine (MCV4P) 2013-05-22 00:00:00 Completed [facility] TDAP 2013-05-22 00:00:00 Completed [facility] Influenza Virus Vaccine (3+ yrs) 2013-05-22 00:00:00 Completed [facility] Meningococcal Polysaccharide (groups A, C, Y and W-135) conjugate vaccine (MCV4P) 2013-05-22 00:00:00 Completed [facility] TDAP 2013-05-22 00:00:00 Completed [facility] Influenza Virus Vaccine (3+ yrs) 2013-05-22 00:00:00 Completed [facility] Meningococcal Polysaccharide (groups A, C, Y and W-135) conjugate vaccine (MCV4P) 2013-05-22 00:00:00 Completed [facility] TDAP 2013-05-22 00:00:00 Completed [facility] Influenza Virus Vaccine (3+ yrs) 2013-05-22 00:00:00 Completed [facility] Meningococcal Polysaccharide (groups A, C, Y and W-135) conjugate vaccine (MCV4P) 2013-05-22 00:00:00 Completed [facility] TDAP 2013-05-22 00:00:00 Completed [facility] Influenza Virus Vaccine (3+ yrs) 2013-05-22 00:00:00 Completed [facility] Meningococcal Polysaccharide (groups A, C, Y and W-135) conjugate vaccine (MCV4P) 2013-05-22 00:00:00 Completed [facility] TDAP 2013-05-22 00:00:00 Completed [facility] Influenza Virus Vaccine (3+ yrs) 2013-05-22 00:00:00 Completed [facility] Meningococcal Polysaccharide (groups A, C, Y and W-135) conjugate vaccine (MCV4P) 2013-05-22 00:00:00 Completed [facility] TDAP 2013-05-22 00:00:00 Completed [facility] Influenza Virus Vaccine (3+ yrs) 2013-05-22 00:00:00 Completed [facility] Meningococcal Polysaccharide (groups A, C, Y and W-135) conjugate vaccine (MCV4P) 2013-05-22 00:00:00 Completed [facility] TDAP 2013-05-22 00:00:00 Completed [facility] Influenza Virus Vaccine (3+ yrs) 2013-05-22 00:00:00 Completed [facility] Meningococcal Polysaccharide (groups A, C, Y and W-135) conjugate vaccine (MCV4P) 2013-05-22 00:00:00 Completed [facility] TDAP 2013-05-22 00:00:00 Completed [facility] Influenza Virus Vaccine (3+ yrs) 2013-05-22 00:00:00 Completed [facility] Meningococcal Polysaccharide (groups A, C, Y and W-135) conjugate vaccine (MCV4P) 2013-05-22 00:00:00 Completed [facility] TDAP 2013-05-22 00:00:00 Completed [facility] Influenza Virus Vaccine (3+ yrs) 2013-05-22 00:00:00 Completed [facility] Meningococcal Polysaccharide (groups A, C, Y and W-135) conjugate vaccine (MCV4P) 2013-05-22 00:00:00 Completed [facility] TDAP 2013-05-22 00:00:00 Completed [facility] Influenza Virus Vaccine (3+ yrs) 2013-05-22 00:00:00 Completed [facility] Meningococcal Polysaccharide (groups A, C, Y and W-135) conjugate vaccine (MCV4P) 2013-05-22 00:00:00 Completed [facility] TDAP 2013-05-22 00:00:00 Completed [facility] Influenza Virus Vaccine (3+ yrs) 2013-05-22 00:00:00 Completed [facility] Meningococcal Polysaccharide (groups A, C, Y and W-135) conjugate vaccine (MCV4P) 2013-05-22 00:00:00 Completed [facility] TDAP 2013-05-22 00:00:00 Completed [facility] Influenza Virus Vaccine (3+ yrs) 2013-05-22 00:00:00 Completed [facility] Meningococcal Polysaccharide (groups A, C, Y and W-135) conjugate vaccine (MCV4P) 2013-05-22 00:00:00 Completed [facility] TDAP 2013-05-22 00:00:00 Completed [facility] Influenza Virus Vaccine (3+ yrs) 2013-05-22 00:00:00 Completed [facility] Meningococcal Polysaccharide (groups A, C, Y and W-135) conjugate vaccine (MCV4P) 2013-05-22 00:00:00 Completed [facility] TDAP 2013-05-22 00:00:00 Completed [facility] Influenza Virus Vaccine (3+ yrs) 2013-05-22 00:00:00 Completed [facility] Meningococcal Polysaccharide (groups A, C, Y and W-135) conjugate vaccine (MCV4P) 2013-05-22 00:00:00 Completed [facility] TDAP 2013-05-22 00:00:00 Completed [facility] Influenza Virus Vaccine (3+ yrs) 2013-05-22 00:00:00 Completed [facility] Meningococcal Polysaccharide (groups A, C, Y and W-135) conjugate vaccine (MCV4P) 2013-05-22 00:00:00 Completed [facility] TDAP 2013-05-22 00:00:00 Completed [facility] Influenza Virus Vaccine (3+ yrs) 2013-05-22 00:00:00 Completed [facility] Meningococcal Polysaccharide (groups A, C, Y and W-135) conjugate vaccine (MCV4P) 2013-05-22 00:00:00 Completed [facility] TDAP 2013-05-22 00:00:00 Completed [facility] Influenza Virus Vaccine (3+ yrs) 2013-05-22 00:00:00 Completed [facility] Meningococcal Polysaccharide (groups A, C, Y and W-135) conjugate vaccine (MCV4P) 2013-05-22 00:00:00 Completed [facility] TDAP 2013-05-22 00:00:00 Completed [facility] Influenza Virus Vaccine (3+ yrs) 2013-05-22 00:00:00 Completed [facility] Meningococcal Polysaccharide (groups A, C, Y and W-135) conjugate vaccine (MCV4P) 2013-05-22 00:00:00 Completed [facility] TDAP 2013-05-22 00:00:00 Completed [facility] Influenza Virus Vaccine (3+ yrs) 2013-05-22 00:00:00 Completed [facility] Meningococcal Polysaccharide (groups A, C, Y and W-135) conjugate vaccine (MCV4P) 2013-05-22 00:00:00 Completed [facility] TDAP 2013-05-22 00:00:00 Completed [facility] Influenza Virus Vaccine (3+ yrs) 2013-05-22 00:00:00 Completed [facility] Meningococcal Polysaccharide (groups A, C, Y and W-135) conjugate vaccine (MCV4P) 2013-05-22 00:00:00 Completed [facility] TDAP 2013-05-22 00:00:00 Completed [facility] Influenza Virus Vaccine (3+ yrs) 2013-05-22 00:00:00 Completed [facility] Meningococcal Polysaccharide (groups A, C, Y and W-135) conjugate vaccine (MCV4P) 2013-05-22 00:00:00 Completed [facility] TDAP 2013-05-22 00:00:00 Completed [facility] Influenza Virus Vaccine (3+ yrs) 2013-05-22 00:00:00 Completed [facility] Meningococcal Polysaccharide (groups A, C, Y and W-135) conjugate vaccine (MCV4P) 2013-05-22 00:00:00 Completed [facility] TDAP 2013-05-22 00:00:00 Completed [facility] Influenza Virus Vaccine (3+ yrs) 2013-05-22 00:00:00 Completed [facility] Meningococcal Polysaccharide (groups A, C, Y and W-135) conjugate vaccine (MCV4P) 2013-05-22 00:00:00 Completed [facility] TDAP 2013-05-22 00:00:00 Completed [facility] Influenza Virus Vaccine (3+ yrs) 2013-05-22 00:00:00 Completed [facility] Meningococcal Polysaccharide (groups A, C, Y and W-135) conjugate vaccine (MCV4P) 2013-05-22 00:00:00 Completed [facility] TDAP 2013-05-22 00:00:00 Completed [facility] Influenza Virus Vaccine (3+ yrs) 2013-05-22 00:00:00 Completed [facility] Meningococcal Polysaccharide (groups A, C, Y and W-135) conjugate vaccine (MCV4P) 2013-05-22 00:00:00 Completed [facility] TDAP 2013-05-22 00:00:00 Completed [facility] Influenza Virus Vaccine (3+ yrs) 2013-05-22 00:00:00 Completed [facility] Meningococcal Polysaccharide (groups A, C, Y and W-135) conjugate vaccine (MCV4P) 2013-05-22 00:00:00 Completed [facility] TDAP 2013-05-22 00:00:00 Completed [facility] Influenza Virus Vaccine (3+ yrs) 2013-05-22 00:00:00 Completed [facility] Meningococcal Polysaccharide (groups A, C, Y and W-135) conjugate vaccine (MCV4P) 2013-05-22 00:00:00 Completed [facility] TDAP 2013-05-22 00:00:00 Completed [facility] Influenza Virus Vaccine (3+ yrs) 2013-05-22 00:00:00 Completed [facility] Meningococcal Polysaccharide (groups A, C, Y and W-135) conjugate vaccine (MCV4P) 2013-05-22 00:00:00 Completed [facility] TDAP 2013-05-22 00:00:00 Completed [facility] Influenza Virus Vaccine (3+ yrs) 2013-05-22 00:00:00 Completed [facility] Meningococcal Polysaccharide (groups A, C, Y and W-135) conjugate vaccine (MCV4P) 2013-05-22 00:00:00 Completed [facility] TDAP 2013-05-22 00:00:00 Completed [facility] Influenza Virus Vaccine (3+ yrs) 2013-05-22 00:00:00 Completed [facility] Meningococcal Polysaccharide (groups A, C, Y and W-135) conjugate vaccine (MCV4P) 2013-05-22 00:00:00 Completed [facility] TDAP 2013-05-22 00:00:00 Completed [facility] Influenza Virus Vaccine (3+ yrs) 2013-05-22 00:00:00 Completed [facility] Meningococcal Polysaccharide (groups A, C, Y and W-135) conjugate vaccine (MCV4P) 2013-05-22 00:00:00 Completed [facility] TDAP 2013-05-22 00:00:00 Completed [facility] Influenza Virus Vaccine (3+ yrs) 2013-05-22 00:00:00 Completed [facility] Meningococcal Polysaccharide (groups A, C, Y and W-135) conjugate vaccine (MCV4P) 2013-05-22 00:00:00 Completed [facility] TDAP 2013-05-22 00:00:00 Completed [facility] Influenza Virus Vaccine (3+ yrs) 2013-05-22 00:00:00 Completed [facility] Meningococcal Polysaccharide (groups A, C, Y and W-135) conjugate vaccine (MCV4P) 2013-05-22 00:00:00 Completed [facility] TDAP 2013-05-22 00:00:00 Completed [facility] Influenza Virus Vaccine 2012-06-13 00:00:00 Completed [facility] Influenza Virus Vaccine 2012-06-13 00:00:00 Completed [facility] Influenza Virus Vaccine 2012-06-13 00:00:00 Completed [facility] Influenza Virus Vaccine 2012-06-13 00:00:00 Completed [facility] Influenza Virus Vaccine 2012-06-13 00:00:00 Completed [facility] Influenza Virus Vaccine 2012-06-13 00:00:00 Completed [facility] Influenza Virus Vaccine 2012-06-13 00:00:00 Completed [facility] Influenza Virus Vaccine 2012-06-13 00:00:00 Completed [facility] Influenza Virus Vaccine 2012-06-13 00:00:00 Completed [facility] Influenza Virus Vaccine 2012-06-13 00:00:00 Completed [facility] Influenza Virus Vaccine 2012-06-13 00:00:00 Completed [facility] Influenza Virus Vaccine 2012-06-13 00:00:00 Completed [facility] Influenza Virus Vaccine 2012-06-13 00:00:00 Completed [facility] Influenza Virus Vaccine 2012-06-13 00:00:00 Completed [facility] Influenza Virus Vaccine 2012-06-13 00:00:00 Completed [facility] Influenza Virus Vaccine 2012-06-13 00:00:00 Completed [facility] Influenza Virus Vaccine 2012-06-13 00:00:00 Completed [facility] Influenza Virus Vaccine 2012-06-13 00:00:00 Completed [facility] Influenza Virus Vaccine 2012-06-13 00:00:00 Completed [facility] Influenza Virus Vaccine 2012-06-13 00:00:00 Completed [facility] Influenza Virus Vaccine 2012-06-13 00:00:00 Completed [facility] Influenza Virus Vaccine 2012-06-13 00:00:00 Completed [facility] Influenza Virus Vaccine 2012-06-13 00:00:00 Completed [facility] Influenza Virus Vaccine 2012-06-13 00:00:00 Completed [facility] Influenza Virus Vaccine 2012-06-13 00:00:00 Completed [facility] Influenza Virus Vaccine 2012-06-13 00:00:00 Completed [facility] Influenza Virus Vaccine 2012-06-13 00:00:00 Completed [facility] Influenza Virus Vaccine 2012-06-13 00:00:00 Completed [facility] Influenza Virus Vaccine 2012-06-13 00:00:00 Completed [facility] Influenza Virus Vaccine 2012-06-13 00:00:00 Completed [facility] Influenza Virus Vaccine 2012-06-13 00:00:00 Completed [facility] Influenza Virus Vaccine 2012-06-13 00:00:00 Completed [facility] Influenza Virus Vaccine 2012-06-13 00:00:00 Completed [facility] Influenza Virus Vaccine 2012-06-13 00:00:00 Completed [facility] Influenza Virus Vaccine 2012-06-13 00:00:00 Completed [facility] Influenza Virus Vaccine 2012-06-13 00:00:00 Completed [facility] Influenza Virus Vaccine 2012-06-13 00:00:00 Completed [facility] Influenza Virus Vaccine 2012-06-13 00:00:00 Completed [facility] Influenza Virus Vaccine 2012-06-13 00:00:00 Completed [facility] Influenza Virus Vaccine 2012-06-13 00:00:00 Completed [facility] Influenza Virus Vaccine 2012-06-13 00:00:00 Completed [facility] Influenza Virus Vaccine 2012-06-13 00:00:00 Completed [facility] Influenza Virus Vaccine 2012-06-13 00:00:00 Completed [facility] Influenza Virus Vaccine 2012-06-13 00:00:00 Completed [facility] Influenza Virus Vaccine 2012-06-13 00:00:00 Completed [facility] Influenza Virus Vaccine 2012-06-13 00:00:00 Completed [facility] Influenza Virus Vaccine 2012-06-13 00:00:00 Completed [facility] Influenza Virus Vaccine 2012-06-13 00:00:00 Completed [facility] Influenza Virus Vaccine 2012-06-13 00:00:00 Completed [facility] Influenza Virus Vaccine 2012-06-13 00:00:00 Completed [facility] Influenza Virus Vaccine 2012-06-13 00:00:00 Completed [facility] Influenza Virus Vaccine 2012-06-13 00:00:00 Completed [facility] Influenza Virus Vaccine 2012-06-13 00:00:00 Completed [facility] Influenza Virus Vaccine 2012-06-13 00:00:00 Completed [facility] Influenza Virus Vaccine 2012-06-13 00:00:00 Completed [facility] Influenza Virus Vaccine 2012-06-13 00:00:00 Completed [facility] Influenza Virus Vaccine 2012-06-13 00:00:00 Completed [facility] Influenza Virus Vaccine 2012-06-13 00:00:00 Completed [facility] Influenza Virus Vaccine 2012-06-13 00:00:00 [facility] [place] Influenza Virus Vaccine 2012-06-13 00:00:00 Completed [facility] Influenza Virus Vaccine 2012-06-13 00:00:00 Completed [facility] Influenza Virus Vaccine 2012-06-13 00:00:00 Completed [facility] [place] Influenza Virus Vaccine 2012-06-13 00:00:00 Completed [facility] [place] Influenza Virus Vaccine 2012-06-13 00:00:00 Completed [facility] Influenza Virus Vaccine 2012-06-13 00:00:00 Completed [facility] Influenza Virus Vaccine 2012-06-13 00:00:00 Completed [facility] Influenza Virus Vaccine 2012-06-13 00:00:00 Completed [facility] Influenza Virus Vaccine 2012-06-13 00:00:00 Completed [facility] Influenza Virus Vaccine 2012-06-13 00:00:00 Completed [facility] Influenza Virus Vaccine 2012-06-13 00:00:00 Completed [facility] Influenza Virus Vaccine 2012-06-13 00:00:00 Completed [facility] Influenza Virus Vaccine 2012-06-13 00:00:00 Completed [facility] Influenza Virus Vaccine 2012-06-13 00:00:00 Completed [facility] Influenza Virus Vaccine 2012-06-13 00:00:00 Completed [facility] Influenza Virus Vaccine 2012-06-13 00:00:00 Completed [facility] Influenza Virus Vaccine 2012-06-13 00:00:00 Completed [facility] Influenza Virus Vaccine 2012-06-13 00:00:00 Completed [facility] Influenza Virus Vaccine 2012-06-13 00:00:00 Completed [facility] Influenza Virus Vaccine 2012-06-13 00:00:00 Completed [facility] Influenza Virus Vaccine 2012-06-13 00:00:00 Completed [facility] [place] Influenza Virus Vaccine 2012-06-13 00:00:00 Completed [facility] Influenza Virus Vaccine 2012-06-13 00:00:00 Completed [facility] [place] Influenza Virus Vaccine 2012-06-13 00:00:00 Completed [facility] [place] Influenza Virus Vaccine 2012-06-13 00:00:00 Completed [facility] [place] Influenza Virus Vaccine 2012-06-13 00:00:00 Completed [facility] Influenza Virus Vaccine 2012-06-13 00:00:00 Completed [facility] [place] Influenza Virus Vaccine 2012-06-13 00:00:00 Completed [facility] Influenza Virus Vaccine 2012-06-13 00:00:00 Completed [facility] Influenza Virus Vaccine 2012-06-13 00:00:00 Completed [facility] Influenza Virus Vaccine 2012-06-13 00:00:00 Completed [facility] Influenza Virus Vaccine 2012-06-13 00:00:00 Completed [facility] Influenza Virus Vaccine 2012-06-13 00:00:00 Completed [facility] Influenza Virus Vaccine 2012-06-13 00:00:00 Completed [facility] Influenza Virus Vaccine 2012-06-13 00:00:00 Completed [facility] Influenza Virus Vaccine 2012-06-13 00:00:00 Completed [facility] Influenza Virus Vaccine 2012-06-13 00:00:00 Completed [facility] Influenza Virus Vaccine 2012-06-13 00:00:00 Completed [facility] Influenza Virus Vaccine 2012-06-13 00:00:00 Completed [facility] Influenza Virus Vaccine 2012-06-13 00:00:00 Completed [facility] Influenza Virus Vaccine 2012-06-13 00:00:00 Completed [facility] Influenza Virus Vaccine 2012-06-13 00:00:00 Completed [facility] Influenza Virus Vaccine 2012-06-13 00:00:00 Completed [facility] Influenza Virus Vaccine 2012-06-13 00:00:00 Completed [facility] Influenza Virus Vaccine 2012-06-13 00:00:00 Completed [facility] Influenza Virus Vaccine 2012-06-13 00:00:00 Completed [facility] Influenza Virus Vaccine 2011-05-18 00:00:00 Completed [facility] Influenza Virus Vaccine 2011-05-18 00:00:00 Completed [facility] Influenza Virus Vaccine 2011-05-18 00:00:00 Completed [facility] Influenza Virus Vaccine 2011-05-18 00:00:00 Completed [facility] Influenza Virus Vaccine 2011-05-18 00:00:00 Completed [facility] Influenza Virus Vaccine 2011-05-18 00:00:00 Completed [facility] Influenza Virus Vaccine 2011-05-18 00:00:00 Completed [facility] [place] Influenza Virus Vaccine 2011-05-18 00:00:00 Completed [facility] Influenza Virus Vaccine 2011-05-18 00:00:00 Completed [facility] [place] Influenza Virus Vaccine 2011-05-18 00:00:00 Completed [facility] [place] Influenza Virus Vaccine 2011-05-18 00:00:00 Completed [facility] [place] Influenza Virus Vaccine 2011-05-18 00:00:00 Completed [facility] [place] Influenza Virus Vaccine 2011-05-18 00:00:00 Completed [facility] [place] Influenza Virus Vaccine 2011-05-18 00:00:00 Completed [facility] [place] Influenza Virus Vaccine 2011-05-18 00:00:00 Completed [facility] [place] Influenza Virus Vaccine 2011-05-18 00:00:00 Completed [facility] Influenza Virus Vaccine 2011-05-18 00:00:00 Completed [facility] Influenza Virus Vaccine 2011-05-18 00:00:00 Completed [facility] Influenza Virus Vaccine 2011-05-18 00:00:00 Completed [facility] Influenza Virus Vaccine 2011-05-18 00:00:00 Completed [facility] Influenza Virus Vaccine 2011-05-18 00:00:00 Completed [facility] [place] Influenza Virus Vaccine 2011-05-18 00:00:00 Completed [facility] Influenza Virus Vaccine 2011-05-18 00:00:00 Completed [facility] Influenza Virus Vaccine 2011-05-18 00:00:00 Completed [facility] [place] Influenza Virus Vaccine 2011-05-18 00:00:00 Completed [facility] Influenza Virus Vaccine 2011-05-18 00:00:00 Completed [facility] [place] Influenza Virus Vaccine 2011-05-18 00:00:00 Completed [facility] [place] Influenza Virus Vaccine 2011-05-18 00:00:00 Completed [facility] [place] Influenza Virus Vaccine 2011-05-18 00:00:00 Completed [facility] [place] Influenza Virus Vaccine 2011-05-18 00:00:00 Completed [facility] [place] Influenza Virus Vaccine 2011-05-18 00:00:00 Completed [facility] [place] Influenza Virus Vaccine 2011-05-18 00:00:00 Completed [facility] [place] Influenza Virus Vaccine 2011-05-18 00:00:00 Completed [facility] [place] Influenza Virus Vaccine 2011-05-18 00:00:00 Completed [facility] Influenza Virus Vaccine 2011-05-18 00:00:00 Completed [facility] Influenza Virus Vaccine 2011-05-18 00:00:00 Completed [facility] [place] Influenza Virus Vaccine 2011-05-18 00:00:00 Completed [facility] [place] Influenza Virus Vaccine 2011-05-18 00:00:00 Completed [facility] [place] Influenza Virus Vaccine 2011-05-18 00:00:00 Completed [facility] [place] Influenza Virus Vaccine 2011-05-18 00:00:00 Completed [facility] Influenza Virus Vaccine 2011-05-18 00:00:00 Completed [facility] [place] Influenza Virus Vaccine 2011-05-18 00:00:00 Completed [facility] Influenza Virus Vaccine 2011-05-18 00:00:00 Completed [facility] Influenza Virus Vaccine 2011-05-18 00:00:00 Completed [facility] Influenza Virus Vaccine 2011-05-18 00:00:00 Completed [facility] Influenza Virus Vaccine 2011-05-18 00:00:00 Completed [facility] Influenza Virus Vaccine 2011-05-18 00:00:00 Completed [facility] [place] Influenza Virus Vaccine 2011-05-18 00:00:00 Completed [facility] Influenza Virus Vaccine 2011-05-18 00:00:00 Completed [facility] Influenza Virus Vaccine 2011-05-18 00:00:00 Completed [facility] [place] Influenza Virus Vaccine 2011-05-18 00:00:00 Completed [facility] [place] Influenza Virus Vaccine 2011-05-18 00:00:00 Completed [facility] [place] Influenza Virus Vaccine 2011-05-18 00:00:00 Completed [facility] [place] Influenza Virus Vaccine 2011-05-18 00:00:00 Completed [facility] [place] Influenza Virus Vaccine 2011-05-18 00:00:00 Completed [facility] [place] Influenza Virus Vaccine 2011-05-18 00:00:00 Completed [facility] [place] Influenza Virus Vaccine 2011-05-18 00:00:00 Completed [facility] [place] Influenza Virus Vaccine 2011-05-18 00:00:00 Completed [facility] [place] Influenza Virus Vaccine 2011-05-18 00:00:00 Completed [facility] [place] Influenza Virus Vaccine 2011-05-18 00:00:00 Completed [facility] [place] Influenza Virus Vaccine 2011-05-18 00:00:00 Completed [facility] Influenza Virus Vaccine 2011-05-18 00:00:00 Completed [facility] Influenza Virus Vaccine 2011-05-18 00:00:00 Completed [facility] Influenza Virus Vaccine 2011-05-18 00:00:00 Completed [facility] Influenza Virus Vaccine 2011-05-18 00:00:00 Completed [facility] Influenza Virus Vaccine 2011-05-18 00:00:00 Completed [facility] Influenza Virus Vaccine 2011-05-18 00:00:00 Completed [facility] Influenza Virus Vaccine 2011-05-18 00:00:00 Completed [facility] Influenza Virus Vaccine 2011-05-18 00:00:00 Completed [facility] Influenza Virus Vaccine 2011-05-18 00:00:00 Completed [facility] Influenza Virus Vaccine 2011-05-18 00:00:00 Completed [facility] Influenza Virus Vaccine 2011-05-18 00:00:00 Completed [facility] Influenza Virus Vaccine 2011-05-18 00:00:00 Completed [facility] Influenza Virus Vaccine 2011-05-18 00:00:00 Completed [facility] Influenza Virus Vaccine 2011-05-18 00:00:00 Completed [facility] Influenza Virus Vaccine 2011-05-18 00:00:00 Completed [facility] Influenza Virus Vaccine 2011-05-18 00:00:00 Completed [facility] Influenza Virus Vaccine 2011-05-18 00:00:00 Completed [facility] Influenza Virus Vaccine 2011-05-18 00:00:00 Completed [facility] Influenza Virus Vaccine 2011-05-18 00:00:00 Completed [facility] Influenza Virus Vaccine 2011-05-18 00:00:00 Completed [facility] Influenza Virus Vaccine 2011-05-18 00:00:00 Completed [facility] Influenza Virus Vaccine 2011-05-18 00:00:00 Completed [facility] Influenza Virus Vaccine 2011-05-18 00:00:00 Completed [facility] Influenza Virus Vaccine 2011-05-18 00:00:00 Completed [facility] Influenza Virus Vaccine 2011-05-18 00:00:00 Completed [facility] [place] Influenza Virus Vaccine 2011-05-18 00:00:00 Completed [facility] Influenza Virus Vaccine 2011-05-18 00:00:00 Completed [facility] [place] Influenza Virus Vaccine 2011-05-18 00:00:00 Completed [facility] [place] Influenza Virus Vaccine 2011-05-18 00:00:00 Completed [facility] [place] Influenza Virus Vaccine 2011-05-18 00:00:00 Completed [facility] [place] Influenza Virus Vaccine 2011-05-18 00:00:00 Completed [facility] [place] Influenza Virus Vaccine 2011-05-18 00:00:00 Completed [facility] [place] Influenza Virus Vaccine 2011-05-18 00:00:00 Completed [facility] [place] Influenza Virus Vaccine 2011-05-18 00:00:00 Completed [facility] Influenza Virus Vaccine 2011-05-18 00:00:00 Completed [facility] Influenza Virus Vaccine 2011-05-18 00:00:00 Completed [facility] Influenza Virus Vaccine 2011-05-18 00:00:00 Completed [facility] Influenza Virus Vaccine 2011-05-18 00:00:00 Completed [facility] Influenza Virus Vaccine 2011-05-18 00:00:00 Completed [facility] [place] Influenza Virus Vaccine 2011-05-18 00:00:00 Completed [facility] Influenza Virus Vaccine 2011-05-18 00:00:00 Completed [facility] Influenza Virus Vaccine 2011-05-18 00:00:00 Completed [facility] Influenza Virus Vaccine 2011-05-18 00:00:00 Completed [facility] Influenza Virus Vaccine 2011-05-18 00:00:00 Completed [facility] Influenza Virus Vaccine 2010-05-26 00:00:00 Completed [facility] [place] Influenza Virus Vaccine 2010-05-26 00:00:00 Completed [facility] [place] Influenza Virus Vaccine 2010-05-26 00:00:00 Completed [facility] [place] Influenza Virus Vaccine 2010-05-26 00:00:00 Completed [facility] [place] Influenza Virus Vaccine 2010-05-26 00:00:00 Completed [facility] [place] Influenza Virus Vaccine 2010-05-26 00:00:00 Completed [facility] [place] Influenza Virus Vaccine 2010-05-26 00:00:00 Completed [facility] [place] Influenza Virus Vaccine 2010-05-26 00:00:00 Completed [facility] Influenza Virus Vaccine 2010-05-26 00:00:00 Completed [facility] [place] Influenza Virus Vaccine 2010-05-26 00:00:00 Completed [facility] [place] Influenza Virus Vaccine 2010-05-26 00:00:00 Completed [facility] [place] Influenza Virus Vaccine 2010-05-26 00:00:00 Completed [facility] [place] Influenza Virus Vaccine 2010-05-26 00:00:00 Completed [facility] [place] Influenza Virus Vaccine 2010-05-26 00:00:00 Completed [facility] [place] Influenza Virus Vaccine 2010-05-26 00:00:00 Completed [facility] [place] Influenza Virus Vaccine 2010-05-26 00:00:00 Completed [facility] Influenza Virus Vaccine 2010-05-26 00:00:00 Completed [facility] Influenza Virus Vaccine 2010-05-26 00:00:00 Completed [facility] Influenza Virus Vaccine 2010-05-26 00:00:00 Completed [facility] Influenza Virus Vaccine 2010-05-26 00:00:00 Completed [facility] Influenza Virus Vaccine 2010-05-26 00:00:00 Completed [facility] [place] Influenza Virus Vaccine 2010-05-26 00:00:00 Completed [facility] Influenza Virus Vaccine 2010-05-26 00:00:00 Completed [facility] Influenza Virus Vaccine 2010-05-26 00:00:00 Completed [facility] [place] Influenza Virus Vaccine 2010-05-26 00:00:00 Completed [facility] [place] Influenza Virus Vaccine 2010-05-26 00:00:00 Completed [facility] [place] Influenza Virus Vaccine 2010-05-26 00:00:00 Completed [facility] [place] Influenza Virus Vaccine 2010-05-26 00:00:00 Completed [facility] [place] Influenza Virus Vaccine 2010-05-26 00:00:00 Completed [facility] [place] Influenza Virus Vaccine 2010-05-26 00:00:00 Completed [facility] [place] Influenza Virus Vaccine 2010-05-26 00:00:00 Completed [facility] [place] Influenza Virus Vaccine 2010-05-26 00:00:00 Completed [facility] [place] Influenza Virus Vaccine 2010-05-26 00:00:00 Completed [facility] [place] Influenza Virus Vaccine 2010-05-26 00:00:00 Completed [facility] [place] Influenza Virus Vaccine 2010-05-26 00:00:00 Completed [facility] [place] Influenza Virus Vaccine 2010-05-26 00:00:00 Completed [facility] [place] Influenza Virus Vaccine 2010-05-26 00:00:00 Completed [facility] [place] Influenza Virus Vaccine 2010-05-26 00:00:00 Completed [facility] [place] Influenza Virus Vaccine 2010-05-26 00:00:00 Completed [facility] Influenza Virus Vaccine 2010-05-26 00:00:00 Completed [facility] [place] Influenza Virus Vaccine 2010-05-26 00:00:00 Completed [facility] [place] Influenza Virus Vaccine 2010-05-26 00:00:00 Completed [facility] Influenza Virus Vaccine 2010-05-26 00:00:00 Completed [facility] Influenza Virus Vaccine 2010-05-26 00:00:00 Completed [facility] Influenza Virus Vaccine 2010-05-26 00:00:00 Completed [facility] Influenza Virus Vaccine 2010-05-26 00:00:00 Completed [facility] Influenza Virus Vaccine 2010-05-26 00:00:00 Completed [facility] [place] Influenza Virus Vaccine 2010-05-26 00:00:00 Completed [facility] [place] Influenza Virus Vaccine 2010-05-26 00:00:00 Completed [facility] [place] Influenza Virus Vaccine 2010-05-26 00:00:00 Completed [facility] [place] Influenza Virus Vaccine 2010-05-26 00:00:00 Completed [facility] [place] Influenza Virus Vaccine 2010-05-26 00:00:00 Completed [facility] Influenza Virus Vaccine 2010-05-26 00:00:00 Completed [facility] [place] Influenza Virus Vaccine 2010-05-26 00:00:00 Completed [facility] [place] Influenza Virus Vaccine 2010-05-26 00:00:00 Completed [facility] [place] Influenza Virus Vaccine 2010-05-26 00:00:00 Completed [facility] [place] Influenza Virus Vaccine 2010-05-26 00:00:00 Completed [facility] [place] Influenza Virus Vaccine 2010-05-26 00:00:00 Completed [facility] [place] Influenza Virus Vaccine 2010-05-26 00:00:00 Completed [facility] [place] Influenza Virus Vaccine 2010-05-26 00:00:00 Completed [facility] [place] Influenza Virus Vaccine 2010-05-26 00:00:00 Completed [facility] Influenza Virus Vaccine 2010-05-26 00:00:00 Completed [facility] [place] Influenza Virus Vaccine 2010-05-26 00:00:00 Completed [facility] [place] Influenza Virus Vaccine 2010-05-26 00:00:00 Completed [facility] [place] Influenza Virus Vaccine 2010-05-26 00:00:00 Completed [facility] [place] Influenza Virus Vaccine 2010-05-26 00:00:00 Completed [facility] [place] Influenza Virus Vaccine 2010-05-26 00:00:00 Completed [facility] [place] Influenza Virus Vaccine 2010-05-26 00:00:00 Completed [facility] [place] Influenza Virus Vaccine 2010-05-26 00:00:00 Completed [facility] Influenza Virus Vaccine 2010-05-26 00:00:00 Completed [facility] Influenza Virus Vaccine 2010-05-26 00:00:00 Completed [facility] Influenza Virus Vaccine 2010-05-26 00:00:00 Completed [facility] Influenza Virus Vaccine 2010-05-26 00:00:00 Completed [facility] [place] Influenza Virus Vaccine 2010-05-26 00:00:00 Completed [facility] [place] Influenza Virus Vaccine 2010-05-26 00:00:00 Completed [facility] Influenza Virus Vaccine 2010-05-26 00:00:00 Completed [facility] Influenza Virus Vaccine 2010-05-26 00:00:00 Completed [facility] Influenza Virus Vaccine 2010-05-26 00:00:00 Completed [facility] Influenza Virus Vaccine 2010-05-26 00:00:00 Completed [facility] [place] Influenza Virus Vaccine 2010-05-26 00:00:00 Completed [facility] [place] Influenza Virus Vaccine 2010-05-26 00:00:00 Completed [facility] [place] Influenza Virus Vaccine 2010-05-26 00:00:00 Completed [facility] [place] Influenza Virus Vaccine 2010-05-26 00:00:00 Completed [facility] [place] Influenza Virus Vaccine 2010-05-26 00:00:00 Completed [facility] [place] Influenza Virus Vaccine 2010-05-26 00:00:00 Completed [facility] [place] Influenza Virus Vaccine 2010-05-26 00:00:00 Completed [facility] [place] Influenza Virus Vaccine 2010-05-26 00:00:00 Completed [facility] Influenza Virus Vaccine 2010-05-26 00:00:00 Completed [facility] [place] Influenza Virus Vaccine 2010-05-26 00:00:00 Completed [facility] [place] Influenza Virus Vaccine 2010-05-26 00:00:00 Completed [facility] [place] Influenza Virus Vaccine 2010-05-26 00:00:00 Completed [facility] [place] Influenza Virus Vaccine 2010-05-26 00:00:00 Completed [facility] [place] Influenza Virus Vaccine 2010-05-26 00:00:00 Completed [facility] [place] Influenza Virus Vaccine 2010-05-26 00:00:00 Completed [facility] [place] Influenza Virus Vaccine 2010-05-26 00:00:00 Completed [facility] Influenza Virus Vaccine 2010-05-26 00:00:00 Completed [facility] Influenza Virus Vaccine 2010-05-26 00:00:00 Completed [facility] Influenza Virus Vaccine 2010-05-26 00:00:00 Completed [facility] Influenza Virus Vaccine 2010-05-26 00:00:00 Completed [facility] Influenza Virus Vaccine 2010-05-26 00:00:00 Completed [facility] Influenza Virus Vaccine 2010-05-26 00:00:00 Completed [facility] Influ[facility] Virus Vaccine 2010-05-26 00:00:00 Completed [facility] Influenza Virus Vaccine 2010-05-26 00:00:00 Completed [facility] Influenza Virus Vaccine 2010-05-26 00:00:00 Completed [facility] Influenza Virus Vaccine 2010-05-26 00:00:00 Completed [facility] Influenza Virus Vaccine 2009-06-23 00:00:00 Completed [facility] Influenza Virus Vaccine 2009-06-23 00:00:00 Completed [facility] [place] Influenza Virus Vaccine 2009-06-23 00:00:00 Completed [facility] Influenza Virus Vaccine 2009-06-23 00:00:00 Completed [facility] Influenza Virus Vaccine 2009-06-23 00:00:00 Completed [facility] [place] Influenza Virus Vaccine 2009-06-23 00:00:00 Completed [facility] [place] Influenza Virus Vaccine 2009-06-23 00:00:00 Completed [facility] [place] Influenza Virus Vaccine 2009-06-23 00:00:00 Completed [facility] Influenza Virus Vaccine 2009-06-23 00:00:00 Completed [facility] Influenza Virus Vaccine 2009-06-23 00:00:00 Completed [facility] Influenza Virus Vaccine 2009-06-23 00:00:00 Completed [facility] Influenza Virus Vaccine 2009-06-23 00:00:00 Completed [facility] Influenza Virus Vaccine 2009-06-23 00:00:00 Completed [facility] Influenza Virus Vaccine 2009-06-23 00:00:00 Completed [facility] Influenza Virus Vaccine 2009-06-23 00:00:00 Completed [facility] Vaccine 2009-06-23 00:00:00 Completed [facility] Influenza Virus Vaccine 2009-06-23 00:00:00 Completed [facility] Influenza Virus Vaccine 2009-06-23 00:00:00 Completed [facility] Influenza Virus Vaccine 2009-06-23 00:00:00 Completed [facility] Influenza Virus Vaccine 2009-06-23 00:00:00 Completed [facility] Influenza Virus Vaccine 2009-06-23 00:00:00 Completed [facility] Influenza Virus Vaccine 2009-06-23 00:00:00 Completed [facility] Influenza Virus Vaccine 2009-06-23 00:00:00 Completed [facility] Influenza Virus Vaccine 2009-06-23 00:00:00 Completed [facility] Influenza Virus Vaccine 2009-06-23 00:00:00 Completed [facility] Influenza Virus Vaccine 2009-06-23 00:00:00 Completed [facility] Influenza Virus Vaccine 2009-06-23 00:00:00 Completed [facility] Influenza Virus Vaccine 2009-06-23 00:00:00 Completed [facility] Influenza Virus Vaccine 2009-06-23 00:00:00 Completed [facility] Influenza Virus Vaccine 2009-06-23 00:00:00 Completed [facility] Influenza Virus Vaccine 2009-06-23 00:00:00 Completed [facility] Influenza Virus Vaccine 2009-06-23 00:00:00 Completed [facility] Influenza Virus Vaccine 2009-06-23 00:00:00 Completed [facility] Influenza Virus Vaccine 2009-06-23 00:00:00 Completed [facility] Influenza Virus Vaccine 2009-06-23 00:00:00 Completed [facility] Influenza Virus Vaccine 2009-06-23 00:00:00 Completed [facility] Influenza Virus Vaccine 2009-06-23 00:00:00 Completed [facility] Influenza Virus Vaccine 2009-06-23 00:00:00 Completed [facility] Influenza Virus Vaccine 2009-06-23 00:00:00 Completed [facility] Influenza Virus Vaccine 2009-06-23 00:00:00 Completed [facility] Influenza Virus Vaccine 2009-06-23 00:00:00 Completed [facility] Influenza Virus Vaccine 2009-06-23 00:00:00 Completed [facility] Influenza Virus Vaccine 2009-06-23 00:00:00 Completed [facility] Influenza Virus Vaccine 2009-06-23 00:00:00 Completed [facility] Influenza Virus Vaccine 2009-06-23 00:00:00 Completed [facility] Influenza Virus Vaccine 2009-06-23 00:00:00 Completed [facility] Influenza Virus Vaccine 2009-06-23 00:00:00 Completed [facility] Influenza Virus Vaccine 2009-06-23 00:00:00 Completed [facility] Influenza Virus Vaccine 2009-06-23 00:00:00 Completed [facility] Influenza Virus Vaccine 2009-06-23 00:00:00 Completed [facility] Influenza Virus Vaccine 2009-06-23 00:00:00 Completed [facility] Influenza Virus Vaccine 2009-06-23 00:00:00 Completed [facility] Influenza Virus Vaccine 2009-06-23 00:00:00 Completed [facility] Influenza Virus Vaccine 2009-06-23 00:00:00 Completed [facility] Influenza Virus Vaccine 2009-06-23 00:00:00 Completed [facility] Influenza Virus Vaccine 2009-06-23 00:00:00 Completed [facility] Influenza Virus Vaccine 2009-06-23 00:00:00 Completed [facility] Influenza Virus Vaccine 2009-06-23 00:00:00 Completed [facility] Influenza Virus Vaccine 2009-06-23 00:00:00 Completed [facility] Influenza Virus Vaccine 2009-06-23 00:00:00 Completed [facility] Influenza Virus Vaccine 2009-06-23 00:00:00 Completed [facility] Influenza Virus Vaccine 2009-06-23 00:00:00 Completed [facility] Influenza Virus Vaccine 2009-06-23 00:00:00 Completed [facility] Influenza Virus Vaccine 2009-06-23 00:00:00 Completed [facility] Influenza Virus Vaccine 2009-06-23 00:00:00 Completed [facility] Influenza Virus Vaccine 2009-06-23 00:00:00 Completed [facility] Influenza Virus Vaccine 2009-06-23 00:00:00 Completed [facility] Influenza Virus Vaccine 2009-06-23 00:00:00 Completed [facility] Influenza Virus Vaccine 2009-06-23 00:00:00 Completed [facility] Influenza Virus Vaccine 2009-06-23 00:00:00 Completed [facility] Influenza Virus Vaccine 2009-06-23 00:00:00 Completed [facility] Influenza Virus Vaccine 2009-06-23 00:00:00 Completed [facility] Influenza Virus Vaccine 2009-06-23 00:00:00 Completed [facility] Influenza Virus Vaccine 2009-06-23 00:00:00 Completed [facility] Influenza Virus Vaccine 2009-06-23 00:00:00 Completed [facility] Influenza Virus Vaccine 2009-06-23 00:00:00 Completed [facility] Influenza Virus Vaccine 2009-06-23 00:00:00 Completed [facility] Influenza Virus Vaccine 2009-06-23 00:00:00 Completed [facility] Influenza Virus Vaccine 2009-06-23 00:00:00 Completed [facility] Influenza Virus Vaccine 2009-06-23 00:00:00 Completed [facility] Influenza Virus Vaccine 2009-06-23 00:00:00 Completed [facility] Influenza Virus Vaccine 2009-06-23 00:00:00 Completed [facility] Influenza Virus Vaccine 2009-06-23 00:00:00 Completed [facility] Influenza Virus Vaccine 2009-06-23 00:00:00 Completed [facility] Influenza Virus Vaccine 2009-06-23 00:00:00 Completed [facility] Influenza Virus Vaccine 2009-06-23 00:00:00 Completed [facility] Influenza Virus Vaccine 2009-06-23 00:00:00 Completed [facility] Influenza Virus Vaccine 2009-06-23 00:00:00 Completed [facility] Influenza Virus Vaccine 2009-06-23 00:00:00 Completed [facility] Influenza Virus Vaccine 2009-06-23 00:00:00 Completed [facility] Influenza Virus Vaccine 2009-06-23 00:00:00 Completed [facility] Influenza Virus Vaccine 2009-06-23 00:00:00 Completed [facility] Influenza Virus Vaccine 2009-06-23 00:00:00 Completed [facility] Influenza Virus Vaccine 2009-06-23 00:00:00 Completed [facility] Influenza Virus Vaccine 2009-06-23 00:00:00 Completed [facility] Influenza Virus Vaccine 2009-06-23 00:00:00 Completed [facility] Influenza Virus Vaccine 2009-06-23 00:00:00 Completed [facility] Influenza Virus Vaccine 2009-06-23 00:00:00 Completed [facility] Influenza Virus Vaccine 2009-06-23 00:00:00 Completed [facility] Influenza Virus Vaccine 2009-06-23 00:00:00 Completed [facility] Influenza Virus Vaccine 2009-06-23 00:00:00 Completed [facility] Influenza Virus Vaccine 2009-06-23 00:00:00 Completed [facility] Influenza Virus Vaccine 2009-06-23 00:00:00 Completed [facility] Influenza Virus Vaccine 2009-06-23 00:00:00 Completed [facility] Influenza Virus Vaccine 2009-06-23 00:00:00 Completed [facility] Influenza Virus Vaccine 2009-05-20 00:00:00 Completed [facility] Influenza Virus Vaccine 2009-05-20 00:00:00 Completed [facility] Influenza Virus Vaccine 2009-05-20 00:00:00 Completed [facility] Influenza Virus Vaccine 2009-05-20 00:00:00 Completed [facility] Influenza Virus Vaccine 2009-05-20 00:00:00 Completed [facility] Influenza Virus Vaccine 2009-05-20 00:00:00 Completed [facility] Influenza Virus Vaccine 2009-05-20 00:00:00 Completed [facility] Influenza Virus Vaccine 2009-05-20 00:00:00 Completed [facility] Influenza Virus Vaccine 2009-05-20 00:00:00 Completed [facility] Influenza Virus Vaccine 2009-05-20 00:00:00 Completed [facility] Influenza Virus Vaccine 2009-05-20 00:00:00 Completed [facility] Influenza Virus Vaccine 2009-05-20 00:00:00 Completed [facility] Influenza Virus Vaccine 2009-05-20 00:00:00 Completed [facility] Influenza Virus Vaccine 2009-05-20 00:00:00 Completed [facility] Influenza Virus Vaccine 2009-05-20 00:00:00 Completed [facility] Influenza Virus Vaccine 2009-05-20 00:00:00 Completed [facility] Influenza Virus Vaccine 2009-05-20 00:00:00 Completed [facility] Influenza Virus Vaccine 2009-05-20 00:00:00 Completed [facility] Influenza Virus Vaccine 2009-05-20 00:00:00 Completed [facility] Influenza Virus Vaccine 2009-05-20 00:00:00 Completed [facility] Influenza Virus Vaccine 2009-05-20 00:00:00 Completed [facility] Influenza Virus Vaccine 2009-05-20 00:00:00 Completed [facility] Influenza Virus Vaccine 2009-05-20 00:00:00 Completed [facility] Influenza Virus Vaccine 2009-05-20 00:00:00 Completed [facility] Influenza Virus Vaccine 2009-05-20 00:00:00 Completed [facility] Influenza Virus Vaccine 2009-05-20 00:00:00 Completed [facility] Influenza Virus Vaccine 2009-05-20 00:00:00 Completed [facility] Influenza Virus Vaccine 2009-05-20 00:00:00 Completed [facility] Influenza Virus Vaccine 2009-05-20 00:00:00 Completed [facility] Influenza Virus Vaccine 2009-05-20 00:00:00 Completed [facility] Influenza Virus Vaccine 2009-05-20 00:00:00 Completed [facility] Influenza Virus Vaccine 2009-05-20 00:00:00 Completed [facility] Influenza Virus Vaccine 2009-05-20 00:00:00 Completed [facility] Influenza Virus Vaccine 2009-05-20 00:00:00 Completed [facility] Influenza Virus Vaccine 2009-05-20 00:00:00 Completed [facility] Influenza Virus Vaccine 2009-05-20 00:00:00 Completed [facility] Influenza Virus Vaccine 2009-05-20 00:00:00 Completed [facility] Influenza Virus Vaccine 2009-05-20 00:00:00 Completed [facility] Influenza Virus Vaccine 2009-05-20 00:00:00 Completed [facility] Influenza Virus Vaccine 2009-05-20 00:00:00 Completed [facility] Influenza Virus Vaccine 2009-05-20 00:00:00 Completed [facility] Influenza Virus Vaccine 2009-05-20 00:00:00 Completed [facility] Influenza Virus Vaccine 2009-05-20 00:00:00 Completed [facility] Influenza Virus Vaccine 2009-05-20 00:00:00 Completed [facility] Influenza Virus Vaccine 2009-05-20 00:00:00 Completed [facility] Influenza Virus Vaccine 2009-05-20 00:00:00 Completed [facility] Influenza Virus Vaccine 2009-05-20 00:00:00 Completed [facility] Influenza Virus Vaccine 2009-05-20 00:00:00 Completed [facility] Influenza Virus Vaccine 2009-05-20 00:00:00 Completed [facility] Influenza Virus Vaccine 2009-05-20 00:00:00 Completed [facility] Influenza Virus Vaccine 2009-05-20 00:00:00 Completed [facility] Influenza Virus Vaccine 2009-05-20 00:00:00 Completed [facility] Influenza Virus Vaccine 2009-05-20 00:00:00 Completed [facility] Influenza Virus Vaccine 2009-05-20 00:00:00 Completed [facility] Influenza Virus Vaccine 2009-05-20 00:00:00 Completed [facility] Influenza Virus Vaccine 2009-05-20 00:00:00 Completed [facility] Influenza Virus Vaccine 2009-05-20 00:00:00 Completed [facility] Influenza Virus Vaccine 2009-05-20 00:00:00 Completed [facility] Influenza Virus Vaccine 2009-05-20 00:00:00 Completed [facility] Influenza Virus Vaccine 2009-05-20 00:00:00 Completed [facility] Influenza Virus Vaccine 2009-05-20 00:00:00 Completed [facility] Influenza Virus Vaccine 2009-05-20 00:00:00 Completed [facility] Influenza Virus Vaccine 2009-05-20 00:00:00 Completed [facility] Influenza Virus Vaccine 2009-05-20 00:00:00 Completed [facility] Influenza Virus Vaccine 2009-05-20 00:00:00 Completed [facility] Influenza Virus Vaccine 2009-05-20 00:00:00 Completed [facility] Influenza Virus Vaccine 2009-05-20 00:00:00 Completed [facility] Influenza Virus Vaccine 2009-05-20 00:00:00 Completed [facility] Influenza Virus Vaccine 2009-05-20 00:00:00 Completed [facility] Influenza Virus Vaccine 2009-05-20 00:00:00 Completed [facility] Influenza Virus Vaccine 2009-05-20 00:00:00 Completed [facility] Influenza Virus Vaccine 2009-05-20 00:00:00 Completed [facility] Influenza Virus Vaccine 2009-05-20 00:00:00 Completed [facility] Influenza Virus Vaccine 2009-05-20 00:00:00 Completed [facility] Influenza Virus Vaccine 2009-05-20 00:00:00 Completed [facility] Influenza Virus Vaccine 2009-05-20 00:00:00 Completed [facility] Influenza Virus Vaccine 2009-05-20 00:00:00 Completed [facility] Influenza Virus Vaccine 2009-05-20 00:00:00 Completed [facility] Influenza Virus Vaccine 2009-05-20 00:00:00 Completed [facility] Influenza Virus Vaccine 2009-05-20 00:00:00 Completed [facility] Influenza Virus Vaccine 2009-05-20 00:00:00 Completed [facility] Influenza Virus Vaccine 2009-05-20 00:00:00 Completed [facility] Influenza Virus Vaccine 2009-05-20 00:00:00 Completed [facility] Influenza Virus Vaccine 2009-05-20 00:00:00 Completed [facility] Influenza Virus Vaccine 2009-05-20 00:00:00 Completed [facility] Influenza Virus Vaccine 2009-05-20 00:00:00 Completed [facility] Influenza Virus Vaccine 2009-05-20 00:00:00 Completed [facility] Influenza Virus Vaccine 2009-05-20 00:00:00 Completed [facility] Influenza Virus Vaccine 2009-05-20 00:00:00 Completed [facility] Influenza Virus Vaccine 2009-05-20 00:00:00 Completed [facility] Influenza Virus Vaccine 2009-05-20 00:00:00 Completed [facility] Influenza Virus Vaccine 2009-05-20 00:00:00 Completed [facility] Influenza Virus Vaccine 2009-05-20 00:00:00 Completed [facility] Influenza Virus Vaccine 2009-05-20 00:00:00 Completed [facility] Influenza Virus Vaccine 2009-05-20 00:00:00 Completed [facility] Influenza Virus Vaccine 2009-05-20 00:00:00 Completed [facility] Influenza Virus Vaccine 2009-05-20 00:00:00 Completed [facility] Influenza Virus Vaccine 2009-05-20 00:00:00 Completed [facility] Influenza Virus Vaccine 2009-05-20 00:00:00 Completed [facility] Influenza Virus Vaccine 2009-05-20 00:00:00 Completed [facility] Influenza Virus Vaccine 2009-05-20 00:00:00 Completed [facility] Influenza Virus Vaccine 2009-05-20 00:00:00 Completed [facility] Influenza Virus Vaccine 2009-05-20 00:00:00 Completed [facility] Influenza Virus Vaccine 2009-05-20 00:00:00 Completed [facility] Influenza Virus Vaccine 2009-05-20 00:00:00 Completed [facility] Influenza Virus Vaccine 2007-06-01 00:00:00 Completed [facility] Influenza Virus Vaccine 2007-06-01 00:00:00 Completed [facility] Influenza Virus Vaccine 2007-06-01 00:00:00 Completed [facility] Influenza Virus Vaccine 2007-06-01 00:00:00 Completed [facility] Influenza Virus Vaccine 2007-06-01 00:00:00 Completed [facility] Influenza Virus Vaccine 2007-06-01 00:00:00 Completed [facility] Influenza Virus Vaccine 2007-06-01 00:00:00 Completed [facility] Influenza Virus Vaccine 2007-06-01 00:00:00 Completed [facility] Influenza Virus Vaccine 2007-06-01 00:00:00 Completed [facility] Influenza Virus Vaccine 2007-06-01 00:00:00 Completed [facility] Influenza Virus Vaccine 2007-06-01 00:00:00 Completed [facility] Influenza Virus Vaccine 2007-06-01 00:00:00 Completed [facility] Influenza Virus Vaccine 2007-06-01 00:00:00 Completed [facility] Influenza Virus Vaccine 2007-06-01 00:00:00 Completed [facility] Influenza Virus Vaccine 2007-06-01 00:00:00 Completed [facility] Influenza Virus Vaccine 2007-06-01 00:00:00 Completed [facility] Influenza Virus Vaccine 2007-06-01 00:00:00 Completed [facility] Influenza Virus Vaccine 2007-06-01 00:00:00 Completed [facility] Influenza Virus Vaccine 2007-06-01 00:00:00 Completed [facility] Influenza Virus Vaccine 2007-06-01 00:00:00 Completed [facility] Influenza Virus Vaccine 2007-06-01 00:00:00 Completed [facility] Influenza Virus Vaccine 2007-06-01 00:00:00 Completed [facility] Influenza Virus Vaccine 2007-06-01 00:00:00 Completed [facility] Influenza Virus Vaccine 2007-06-01 00:00:00 Completed [facility] Influenza Virus Vaccine 2007-06-01 00:00:00 Completed [facility] Influenza Virus Vaccine 2007-06-01 00:00:00 Completed [facility] Influenza Virus Vaccine 2007-06-01 00:00:00 Completed [facility] Influenza Virus Vaccine 2007-06-01 00:00:00 Completed [facility] Influenza Virus Vaccine 2007-06-01 00:00:00 Completed [facility] Influenza Virus Vaccine 2007-06-01 00:00:00 Completed [facility] Influenza Virus Vaccine 2007-06-01 00:00:00 Completed [facility] Influenza Virus Vaccine 2007-06-01 00:00:00 Completed [facility] Influenza Virus Vaccine 2007-06-01 00:00:00 Completed [facility] Influenza Virus Vaccine 2007-06-01 00:00:00 Completed [facility] Influenza Virus Vaccine 2007-06-01 00:00:00 Completed [facility] Influenza Virus Vaccine 2007-06-01 00:00:00 Completed [facility] Influenza Virus Vaccine 2007-06-01 00:00:00 Completed [facility] Influenza Virus Vaccine 2007-06-01 00:00:00 Completed [facility] Influenza Virus Vaccine 2007-06-01 00:00:00 Completed [facility] Influenza Virus Vaccine 2007-06-01 00:00:00 Completed [facility] Influenza Virus Vaccine 2007-06-01 00:00:00 Completed [facility] Influenza Virus Vaccine 2007-06-01 00:00:00 Completed [facility] Influenza Virus Vaccine 2007-06-01 00:00:00 Completed [facility] Influenza Virus Vaccine 2007-06-01 00:00:00 Completed [facility] Influenza Virus Vaccine 2007-06-01 00:00:00 Completed [facility] Influenza Virus Vaccine 2007-06-01 00:00:00 Completed [facility] Influenza Virus Vaccine 2007-06-01 00:00:00 Completed [facility] Influenza Virus Vaccine 2007-06-01 00:00:00 Completed [facility] Influenza Virus Vaccine 2007-06-01 00:00:00 Completed [facility] Influenza Virus Vaccine 2007-06-01 00:00:00 Completed [facility] Influenza Virus Vaccine 2007-06-01 00:00:00 Completed [facility] Influenza Virus Vaccine 2007-06-01 00:00:00 Completed [facility] Influenza Virus Vaccine 2007-06-01 00:00:00 Completed [facility] Influenza Virus Vaccine 2007-06-01 00:00:00 Completed [facility] Influenza Virus Vaccine 2007-06-01 00:00:00 Completed [facility] Influenza Virus Vaccine 2007-06-01 00:00:00 Completed [facility] Influenza Virus Vaccine 2007-06-01 00:00:00 Completed [facility] Influenza Virus Vaccine 2007-06-01 00:00:00 Completed [facility] Influenza Virus Vaccine 2007-06-01 00:00:00 Completed [facility] Influenza Virus Vaccine 2007-06-01 00:00:00 Completed [facility] Influenza Virus Vaccine 2007-06-01 00:00:00 Completed [facility] Influenza Virus Vaccine 2007-06-01 00:00:00 Completed [facility] Influenza Virus Vaccine 2007-06-01 00:00:00 Completed [facility] Influenza Virus Vaccine 2007-06-01 00:00:00 Completed [facility] Influenza Virus Vaccine 2007-06-01 00:00:00 Completed [facility] Influenza Virus Vaccine 2007-06-01 00:00:00 Completed [facility] Influenza Virus Vaccine 2007-06-01 00:00:00 Completed [facility] Influenza Virus Vaccine 2007-06-01 00:00:00 Completed [facility] Influenza Virus Vaccine 2007-06-01 00:00:00 Completed [facility] Influenza Virus Vaccine 2007-06-01 00:00:00 Completed [facility] Influenza Virus Vaccine 2007-06-01 00:00:00 Completed [facility] Influenza Virus Vaccine 2007-06-01 00:00:00 Completed [facility] Influenza Virus Vaccine 2007-06-01 00:00:00 Completed [facility] Influenza Virus Vaccine 2007-06-01 00:00:00 Completed [facility] Influenza Virus Vaccine 2007-06-01 00:00:00 Completed [facility] Influenza Virus Vaccine 2007-06-01 00:00:00 Completed [facility] Influenza Virus Vaccine 2007-06-01 00:00:00 Completed [facility] Influenza Virus Vaccine 2007-06-01 00:00:00 Completed [facility] Influenza Virus Vaccine 2007-06-01 00:00:00 Completed [facility] Influenza Virus Vaccine 2007-06-01 00:00:00 Completed [facility] Influenza Virus Vaccine 2007-06-01 00:00:00 Completed [facility] Influenza Virus Vaccine 2007-06-01 00:00:00 Completed [facility] Influenza Virus Vaccine 2007-06-01 00:00:00 Completed [facility] Influenza Virus Vaccine 2007-06-01 00:00:00 Completed [facility] Influenza Virus Vaccine 2007-06-01 00:00:00 Completed [facility] Influenza Virus Vaccine 2007-06-01 00:00:00 Completed [facility] Influenza Virus Vaccine 2007-06-01 00:00:00 Completed [facility] Influenza Virus Vaccine 2007-06-01 00:00:00 Completed [facility] Influenza Virus Vaccine 2007-06-01 00:00:00 Completed [facility] Influenza Virus Vaccine 2007-06-01 00:00:00 Completed [facility] Influenza Virus Vaccine 2007-06-01 00:00:00 Completed [facility] Influenza Virus Vaccine 2007-06-01 00:00:00 Completed [facility] Influenza Virus Vaccine 2007-06-01 00:00:00 Completed [facility] Influenza Virus Vaccine 2007-06-01 00:00:00 Completed [facility] Influenza Virus Vaccine 2007-06-01 00:00:00 Completed [facility] Influenza Virus Vaccine 2007-06-01 00:00:00 Completed [facility] Influenza Virus Vaccine 2007-06-01 00:00:00 Completed [facility] Influenza Virus Vaccine 2007-06-01 00:00:00 Completed [facility] Influenza Virus Vaccine 2007-06-01 00:00:00 Completed [facility] Influenza Virus Vaccine 2007-06-01 00:00:00 Completed [facility] Influenza Virus Vaccine 2007-06-01 00:00:00 Completed [facility] Influenza Virus Vaccine 2007-06-01 00:00:00 Completed [facility] Influenza Virus Vaccine 2007-06-01 00:00:00 Completed [facility] Influenza Virus Vaccine 2007-06-01 00:00:00 Completed [facility] Influenza Virus Vaccine 2007-06-01 00:00:00 Completed [facility] DTAP 2006-05-24 00:00:00 Completed [facility] Proquad (MMR/VARICELLA) 2006-05-24 00:00:00 Completed [facility] Polio (IPV/OPV) 2006-05-24 00:00:00 Completed [facility] DTAP 2006-05-24 00:00:00 Completed [facility] Proquad (MMR/VARICELLA) 2006-05-24 00:00:00 Completed [facility] Polio (IPV/OPV) 2006-05-24 00:00:00 Completed [facility] DTAP 2006-05-24 00:00:00 Completed [facility] Proquad (MMR/VARICELLA) 2006-05-24 00:00:00 Completed [facility] Polio (IPV/OPV) 2006-05-24 00:00:00 Completed [facility] DTAP 2006-05-24 00:00:00 Completed [facility] Proquad (MMR/VARICELLA) 2006-05-24 00:00:00 Completed [facility] Polio (IPV/OPV) 2006-05-24 00:00:00 Completed [facility] DTAP 2006-05-24 00:00:00 Completed [facility] Proquad (MMR/VARICELLA) 2006-05-24 00:00:00 Completed [facility] Polio (IPV/OPV) 2006-05-24 00:00:00 Completed [facility] DTAP 2006-05-24 00:00:00 Completed [facility] Proquad (MMR/VARICELLA) 2006-05-24 00:00:00 Completed [facility] Polio (IPV/OPV) 2006-05-24 00:00:00 Completed [facility] DTAP 2006-05-24 00:00:00 Completed [facility] Proquad (MMR/VARICELLA) 2006-05-24 00:00:00 Completed [facility] Polio (IPV/OPV) 2006-05-24 00:00:00 Completed [facility] DTAP 2006-05-24 00:00:00 Completed [facility] Proquad (MMR/VARICELLA) 2006-05-24 00:00:00 Completed [facility] Polio (IPV/OPV) 2006-05-24 00:00:00 Completed [facility] DTAP 2006-05-24 00:00:00 Completed [facility] Proquad (MMR/VARICELLA) 2006-05-24 00:00:00 Completed [facility] Polio (IPV/OPV) 2006-05-24 00:00:00 Completed [facility] DTAP 2006-05-24 00:00:00 Completed [facility] Proquad (MMR/VARICELLA) 2006-05-24 00:00:00 Completed [facility] Polio (IPV/OPV) 2006-05-24 00:00:00 Completed [facility] DTAP 2006-05-24 00:00:00 Completed [facility] Proquad (MMR/VARICELLA) 2006-05-24 00:00:00 Completed [facility] Polio (IPV/OPV) 2006-05-24 00:00:00 Completed [facility] DTAP 2006-05-24 00:00:00 Completed [facility] Proquad (MMR/VARICELLA) 2006-05-24 00:00:00 Completed [facility] Polio (IPV/OPV) 2006-05-24 00:00:00 Completed [facility] DTAP 2006-05-24 00:00:00 Completed [facility] Proquad (MMR/VARICELLA) 2006-05-24 00:00:00 Completed [facility] Polio (IPV/OPV) 2006-05-24 00:00:00 Completed [facility] DTAP 2006-05-24 00:00:00 Completed [facility] Proquad (MMR/VARICELLA) 2006-05-24 00:00:00 Completed [facility] Polio (IPV/OPV) 2006-05-24 00:00:00 Completed [facility] DTAP 2006-05-24 00:00:00 Completed [facility] Proquad (MMR/VARICELLA) 2006-05-24 00:00:00 Completed [facility] Polio (IPV/OPV) 2006-05-24 00:00:00 Completed [facility] DTAP 2006-05-24 00:00:00 Completed [facility] Proquad (MMR/VARICELLA) 2006-05-24 00:00:00 Completed [facility] Polio (IPV/OPV) 2006-05-24 00:00:00 Completed [facility] DTAP 2006-05-24 00:00:00 Completed [facility] Proquad (MMR/VARICELLA) 2006-05-24 00:00:00 Completed [facility] Polio (IPV/OPV) 2006-05-24 00:00:00 Completed [facility] DTAP 2006-05-24 00:00:00 Completed [facility] Proquad (MMR/VARICELLA) 2006-05-24 00:00:00 Completed [facility] Polio (IPV/OPV) 2006-05-24 00:00:00 Completed [facility] DTAP 2006-05-24 00:00:00 Completed [facility] Proquad (MMR/VARICELLA) 2006-05-24 00:00:00 Completed [facility] Polio (IPV/OPV) 2006-05-24 00:00:00 Completed [facility] DTAP 2006-05-24 00:00:00 Completed [facility] Proquad (MMR/VARICELLA) 2006-05-24 00:00:00 Completed [facility] Polio (IPV/OPV) 2006-05-24 00:00:00 Completed [facility] DTAP 2006-05-24 00:00:00 Completed [facility] Proquad (MMR/VARICELLA) 2006-05-24 00:00:00 Completed [facility] Polio (IPV/OPV) 2006-05-24 00:00:00 Completed [facility] DTAP 2006-05-24 00:00:00 Completed [facility] Proquad (MMR/VARICELLA) 2006-05-24 00:00:00 Completed [facility] Polio (IPV/OPV) 2006-05-24 00:00:00 Completed [facility] DTAP 2006-05-24 00:00:00 Completed [facility] Proquad (MMR/VARICELLA) 2006-05-24 00:00:00 Completed [facility] Polio (IPV/OPV) 2006-05-24 00:00:00 Completed [facility] DTAP 2006-05-24 00:00:00 Completed [facility] Proquad (MMR/VARICELLA) 2006-05-24 00:00:00 Completed [facility] Polio (IPV/OPV) 2006-05-24 00:00:00 Completed [facility] DTAP 2006-05-24 00:00:00 Completed [facility] Proquad (MMR/VARICELLA) 2006-05-24 00:00:00 Completed [facility] Polio (IPV/OPV) 2006-05-24 00:00:00 Completed [facility] DTAP 2006-05-24 00:00:00 Completed [facility] Proquad (MMR/VARICELLA) 2006-05-24 00:00:00 Completed [facility] Polio (IPV/OPV) 2006-05-24 00:00:00 Completed [facility] DTAP 2006-05-24 00:00:00 Completed [facility] Proquad (MMR/VARICELLA) 2006-05-24 00:00:00 Completed [facility] Polio (IPV/OPV) 2006-05-24 00:00:00 Completed [facility] DTAP 2006-05-24 00:00:00 Completed [facility] Proquad (MMR/VARICELLA) 2006-05-24 00:00:00 Completed [facility] Polio (IPV/OPV) 2006-05-24 00:00:00 Completed [facility] DTAP 2006-05-24 00:00:00 Completed [facility] Proquad (MMR/VARICELLA) 2006-05-24 00:00:00 Completed [facility] Polio (IPV/OPV) 2006-05-24 00:00:00 Completed [facility] DTAP 2006-05-24 00:00:00 Completed [facility] Proquad (MMR/VARICELLA) 2006-05-24 00:00:00 Completed [facility] Polio (IPV/OPV) 2006-05-24 00:00:00 Completed [facility] DTAP 2006-05-24 00:00:00 Completed [facility] Proquad (MMR/VARICELLA) 2006-05-24 00:00:00 Completed [facility] Polio (IPV/OPV) 2006-05-24 00:00:00 Completed [facility] DTAP 2006-05-24 00:00:00 Completed [facility] Proquad (MMR/VARICELLA) 2006-05-24 00:00:00 Completed [facility] Polio (IPV/OPV) 2006-05-24 00:00:00 Completed [facility] DTAP 2006-05-24 00:00:00 Completed [facility] Proquad (MMR/VARICELLA) 2006-05-24 00:00:00 Completed [facility] Polio (IPV/OPV) 2006-05-24 00:00:00 Completed [facility] DTAP 2006-05-24 00:00:00 Completed [facility] Proquad (MMR/VARICELLA) 2006-05-24 00:00:00 Completed [facility] Polio (IPV/OPV) 2006-05-24 00:00:00 Completed [facility] DTAP 2006-05-24 00:00:00 Completed [facility] Proquad (MMR/VARICELLA) 2006-05-24 00:00:00 Completed [facility] Polio (IPV/OPV) 2006-05-24 00:00:00 Completed [facility] DTAP 2006-05-24 00:00:00 Completed [facility] Proquad (MMR/VARICELLA) 2006-05-24 00:00:00 Completed [facility] Polio (IPV/OPV) 2006-05-24 00:00:00 Completed [facility] DTAP 2006-05-24 00:00:00 Completed [facility] Proquad (MMR/VARICELLA) 2006-05-24 00:00:00 Completed [facility] Polio (IPV/OPV) 2006-05-24 00:00:00 Completed [facility] DTAP 2006-05-24 00:00:00 Completed [facility] Proquad (MMR/VARICELLA) 2006-05-24 00:00:00 Completed [facility] Polio (IPV/OPV) 2006-05-24 00:00:00 Completed [facility] DTAP 2006-05-24 00:00:00 Completed [facility] Proquad (MMR/VARICELLA) 2006-05-24 00:00:00 Completed [facility] Polio (IPV/OPV) 2006-05-24 00:00:00 Completed [facility] DTAP 2006-05-24 00:00:00 Completed [facility] Proquad (MMR/VARICELLA) 2006-05-24 00:00:00 Completed [facility] Polio (IPV/OPV) 2006-05-24 00:00:00 Completed [facility] DTAP 2006-05-24 00:00:00 Completed [facility] Proquad (MMR/VARICELLA) 2006-05-24 00:00:00 Completed [facility] Polio (IPV/OPV) 2006-05-24 00:00:00 Completed [facility] DTAP 2006-05-24 00:00:00 Completed [facility] Proquad (MMR/VARICELLA) 2006-05-24 00:00:00 Completed [facility] Polio (IPV/OPV) 2006-05-24 00:00:00 Completed [facility] DTAP 2006-05-24 00:00:00 Completed [facility] Proquad (MMR/VARICELLA) 2006-05-24 00:00:00 Completed [facility] Polio (IPV/OPV) 2006-05-24 00:00:00 Completed [facility] DTAP 2006-05-24 00:00:00 Completed [facility] Proquad (MMR/VARICELLA) 2006-05-24 00:00:00 Completed [facility] Polio (IPV/OPV) 2006-05-24 00:00:00 Completed [facility] DTAP 2006-05-24 00:00:00 Completed [facility] Proquad (MMR/VARICELLA) 2006-05-24 00:00:00 Completed [facility] Polio (IPV/OPV) 2006-05-24 00:00:00 Completed [facility] DTAP 2006-05-24 00:00:00 Completed [facility] Proquad (MMR/VARICELLA) 2006-05-24 00:00:00 Completed [facility] Polio (IPV/OPV) 2006-05-24 00:00:00 Completed [facility] DTAP 2006-05-24 00:00:00 Completed [facility] Proquad (MMR/VARICELLA) 2006-05-24 00:00:00 Completed [facility] Polio (IPV/OPV) 2006-05-24 00:00:00 Completed [facility] DTAP 2006-05-24 00:00:00 Completed [facility] Proquad (MMR/VARICELLA) 2006-05-24 00:00:00 Completed [facility] Polio (IPV/OPV) 2006-05-24 00:00:00 Completed [facility] DTAP 2006-05-24 00:00:00 Completed [facility] Proquad (MMR/VARICELLA) 2006-05-24 00:00:00 Completed [facility] Polio (IPV/OPV) 2006-05-24 00:00:00 Completed [facility] DTAP 2006-05-24 00:00:00 Completed [facility] Proquad (MMR/VARICELLA) 2006-05-24 00:00:00 Completed [facility] Polio (IPV/OPV) 2006-05-24 00:00:00 Completed [facility] DTAP 2006-05-24 00:00:00 Completed [facility] Proquad (MMR/VARICELLA) 2006-05-24 00:00:00 Completed [facility] Polio (IPV/OPV) 2006-05-24 00:00:00 Completed [facility] DTAP 2006-05-24 00:00:00 Completed [facility] Proquad (MMR/VARICELLA) 2006-05-24 00:00:00 Completed [facility] Polio (IPV/OPV) 2006-05-24 00:00:00 Completed [facility] DTAP 2006-05-24 00:00:00 Completed [facility] Proquad (MMR/VARICELLA) 2006-05-24 00:00:00 Completed [facility] Polio (IPV/OPV) 2006-05-24 00:00:00 Completed [facility] DTAP 2006-05-24 00:00:00 Completed [facility] Proquad (MMR/VARICELLA) 2006-05-24 00:00:00 Completed [facility] Polio (IPV/OPV) 2006-05-24 00:00:00 Completed [facility] DTAP 2006-05-24 00:00:00 Completed [facility] Proquad (MMR/VARICELLA) 2006-05-24 00:00:00 Completed [facility] Polio (IPV/OPV) 2006-05-24 00:00:00 Completed [facility] DTAP 2006-05-24 00:00:00 Completed [facility] Proquad (MMR/VARICELLA) 2006-05-24 00:00:00 Completed [facility] Polio (IPV/OPV) 2006-05-24 00:00:00 Completed [facility] DTAP 2006-05-24 00:00:00 Completed [facility] Proquad (MMR/VARICELLA) 2006-05-24 00:00:00 Completed [facility] Polio (IPV/OPV) 2006-05-24 00:00:00 Completed [facility] DTAP 2006-05-24 00:00:00 Completed [facility] Proquad (MMR/VARICELLA) 2006-05-24 00:00:00 Completed [facility] Polio (IPV/OPV) 2006-05-24 00:00:00 Completed [facility] DTAP 2006-05-24 00:00:00 Completed [facility] Proquad (MMR/VARICELLA) 2006-05-24 00:00:00 Completed [facility] Polio (IPV/OPV) 2006-05-24 00:00:00 Completed [facility] DTAP 2006-05-24 00:00:00 Completed [facility] Proquad (MMR/VARICELLA) 2006-05-24 00:00:00 Completed [facility] Polio (IPV/OPV) 2006-05-24 00:00:00 Completed [facility] DTAP 2006-05-24 00:00:00 Completed [facility] Proquad (MMR/VARICELLA) 2006-05-24 00:00:00 Completed [facility] Polio (IPV/OPV) 2006-05-24 00:00:00 Completed [facility] DTAP 2006-05-24 00:00:00 Completed [facility] Proquad (MMR/VARICELLA) 2006-05-24 00:00:00 Completed [facility] Polio (IPV/OPV) 2006-05-24 00:00:00 Completed [facility] DTAP 2006-05-24 00:00:00 Completed [facility] Proquad (MMR/VARICELLA) 2006-05-24 00:00:00 Completed [facility] Polio (IPV/OPV) 2006-05-24 00:00:00 Completed [facility] DTAP 2006-05-24 00:00:00 Completed [facility] Proquad (MMR/VARICELLA) 2006-05-24 00:00:00 Completed [facility] Polio (IPV/OPV) 2006-05-24 00:00:00 Completed [facility] DTAP 2006-05-24 00:00:00 Completed [facility] Proquad (MMR/VARICELLA) 2006-05-24 00:00:00 Completed [facility] Polio (IPV/OPV) 2006-05-24 00:00:00 Completed [facility] DTAP 2006-05-24 00:00:00 Completed [facility] Proquad (MMR/VARICELLA) 2006-05-24 00:00:00 Completed [facility] Polio (IPV/OPV) 2006-05-24 00:00:00 Completed [facility] DTAP 2006-05-24 00:00:00 Completed [facility] Proquad (MMR/VARICELLA) 2006-05-24 00:00:00 Completed [facility] Polio (IPV/OPV) 2006-05-24 00:00:00 Completed [facility] DTAP 2006-05-24 00:00:00 Completed [facility] Proquad (MMR/VARICELLA) 2006-05-24 00:00:00 Completed [facility] Polio (IPV/OPV) 2006-05-24 00:00:00 Completed [facility] DTAP 2006-05-24 00:00:00 Completed [facility] Proquad (MMR/VARICELLA) 2006-05-24 00:00:00 Completed [facility] Polio (IPV/OPV) 2006-05-24 00:00:00 Completed [facility] DTAP 2006-05-24 00:00:00 Completed [facility] Proquad (MMR/VARICELLA) 2006-05-24 00:00:00 Completed [facility] Polio (IPV/OPV) 2006-05-24 00:00:00 Completed [facility] DTAP 2006-05-24 00:00:00 Completed [facility] Proquad (MMR/VARICELLA) 2006-05-24 00:00:00 Completed [facility] Polio (IPV/OPV) 2006-05-24 00:00:00 Completed [facility] DTAP 2006-05-24 00:00:00 Completed [facility] Proquad (MMR/VARICELLA) 2006-05-24 00:00:00 Completed [facility] Polio (IPV/OPV) 2006-05-24 00:00:00 Completed [facility] DTAP 2006-05-24 00:00:00 Completed [facility] Proquad (MMR/VARICELLA) 2006-05-24 00:00:00 Completed [facility] Polio (IPV/OPV) 2006-05-24 00:00:00 Completed [facility] DTAP 2006-05-24 00:00:00 Completed [facility] Proquad (MMR/VARICELLA) 2006-05-24 00:00:00 Completed [facility] Polio (IPV/OPV) 2006-05-24 00:00:00 Completed [facility] DTAP 2006-05-24 00:00:00 Completed [facility] Proquad (MMR/VARICELLA) 2006-05-24 00:00:00 Completed [facility] Polio (IPV/OPV) 2006-05-24 00:00:00 Completed [facility] DTAP 2006-05-24 00:00:00 Completed [facility] Proquad (MMR/VARICELLA) 2006-05-24 00:00:00 Completed [facility] Polio (IPV/OPV) 2006-05-24 00:00:00 Completed [facility] DTAP 2006-05-24 00:00:00 Completed [facility] Proquad (MMR/VARICELLA) 2006-05-24 00:00:00 Completed [facility] Polio (IPV/OPV) 2006-05-24 00:00:00 Completed [facility] DTAP 2006-05-24 00:00:00 Completed [facility] Proquad (MMR/VARICELLA) 2006-05-24 00:00:00 Completed [facility] Polio (IPV/OPV) 2006-05-24 00:00:00 Completed [facility] DTAP 2006-05-24 00:00:00 Completed [facility] Proquad (MMR/VARICELLA) 2006-05-24 00:00:00 Completed [facility] Polio (IPV/OPV) 2006-05-24 00:00:00 Completed [facility] DTAP 2006-05-24 00:00:00 Completed [facility] Proquad (MMR/VARICELLA) 2006-05-24 00:00:00 Completed [facility] Polio (IPV/OPV) 2006-05-24 00:00:00 Completed [facility] DTAP 2006-05-24 00:00:00 Completed [facility] Proquad (MMR/VARICELLA) 2006-05-24 00:00:00 Completed [facility] Polio (IPV/OPV) 2006-05-24 00:00:00 Completed [facility] DTAP 2006-05-24 00:00:00 Completed [facility] Proquad (MMR/VARICELLA) 2006-05-24 00:00:00 Completed [facility] Polio (IPV/OPV) 2006-05-24 00:00:00 Completed [facility] DTAP 2006-05-24 00:00:00 Completed [facility] Proquad (MMR/VARICELLA) 2006-05-24 00:00:00 Completed [facility] Polio (IPV/OPV) 2006-05-24 00:00:00 Completed [facility] DTAP 2006-05-24 00:00:00 Completed [facility] Proquad (MMR/VARICELLA) 2006-05-24 00:00:00 Completed [facility] Polio (IPV/OPV) 2006-05-24 00:00:00 Completed [facility] DTAP 2006-05-24 00:00:00 Completed [facility] Proquad (MMR/VARICELLA) 2006-05-24 00:00:00 Completed [facility] Polio (IPV/OPV) 2006-05-24 00:00:00 Completed [facility] DTAP 2006-05-24 00:00:00 Completed [facility] Proquad (MMR/VARICELLA) 2006-05-24 00:00:00 Completed [facility] Polio (IPV/OPV) 2006-05-24 00:00:00 Completed [facility] DTAP 2006-05-24 00:00:00 Completed [facility] Proquad (MMR/VARICELLA) 2006-05-24 00:00:00 Completed [facility] Polio (IPV/OPV) 2006-05-24 00:00:00 Completed [facility] DTAP 2006-05-24 00:00:00 Completed [facility] Proquad (MMR/VARICELLA) 2006-05-24 00:00:00 Completed [facility] Polio (IPV/OPV) 2006-05-24 00:00:00 Completed [facility] DTAP 2006-05-24 00:00:00 Completed [facility] Proquad (MMR/VARICELLA) 2006-05-24 00:00:00 Completed [facility] Polio (IPV/OPV) 2006-05-24 00:00:00 Completed [facility] DTAP 2006-05-24 00:00:00 Completed [facility] Proquad (MMR/VARICELLA) 2006-05-24 00:00:00 Completed [facility] Polio (IPV/OPV) 2006-05-24 00:00:00 Completed [facility] DTAP 2006-05-24 00:00:00 Completed [facility] Proquad (MMR/VARICELLA) 2006-05-24 00:00:00 Completed [facility] Polio (IPV/OPV) 2006-05-24 00:00:00 Completed [facility] DTAP 2006-05-24 00:00:00 Completed [facility] Proquad (MMR/VARICELLA) 2006-05-24 00:00:00 Completed [facility] Polio (IPV/OPV) 2006-05-24 00:00:00 Completed [facility] DTAP 2006-05-24 00:00:00 Completed [facility] Proquad (MMR/VARICELLA) 2006-05-24 00:00:00 Completed [facility] Polio (IPV/OPV) 2006-05-24 00:00:00 Completed [facility] DTAP 2006-05-24 00:00:00 Completed [facility] Proquad (MMR/VARICELLA) 2006-05-24 00:00:00 Completed [facility] Polio (IPV/OPV) 2006-05-24 00:00:00 Completed [facility] DTAP 2006-05-24 00:00:00 Completed [facility] Proquad (MMR/VARICELLA) 2006-05-24 00:00:00 Completed [facility] Polio (IPV/OPV) 2006-05-24 00:00:00 Completed [facility] DTAP 2006-05-24 00:00:00 Completed [facility] Proquad (MMR/VARICELLA) 2006-05-24 00:00:00 Completed [facility] Polio (IPV/OPV) 2006-05-24 00:00:00 Completed [facility] DTAP 2006-05-24 00:00:00 Completed [facility] Proquad (MMR/VARICELLA) 2006-05-24 00:00:00 Completed [facility] Polio (IPV/OPV) 2006-05-24 00:00:00 Completed [facility] DTAP 2006-05-24 00:00:00 Completed [facility] Proquad (MMR/VARICELLA) 2006-05-24 00:00:00 Completed [facility] Polio (IPV/OPV) 2006-05-24 00:00:00 Completed [facility] DTAP 2006-05-24 00:00:00 Completed [facility] Proquad (MMR/VARICELLA) 2006-05-24 00:00:00 Completed [facility] Polio (IPV/OPV) 2006-05-24 00:00:00 Completed [facility] DTAP 2006-05-24 00:00:00 Completed [facility] Proquad (MMR/VARICELLA) 2006-05-24 00:00:00 Completed [facility] Polio (IPV/OPV) 2006-05-24 00:00:00 Completed [facility] DTAP 2006-05-24 00:00:00 Completed [facility] Proquad (MMR/VARICELLA) 2006-05-24 00:00:00 Completed [facility] Polio (IPV/OPV) 2006-05-24 00:00:00 Completed [facility] DTAP 2006-05-24 00:00:00 Completed [facility] Proquad (MMR/VARICELLA) 2006-05-24 00:00:00 Completed [facility] Polio (IPV/OPV) 2006-05-24 00:00:00 Completed [facility] DTAP 2006-05-24 00:00:00 Completed [facility] Proquad (MMR/VARICELLA) 2006-05-24 00:00:00 Completed [facility] Polio (IPV/OPV) 2006-05-24 00:00:00 Completed [facility] DTAP 2006-05-24 00:00:00 Completed [facility] Proquad (MMR/VARICELLA) 2006-05-24 00:00:00 Completed [facility] Polio (IPV/OPV) 2006-05-24 00:00:00 Completed [facility] DTAP 2006-05-24 00:00:00 Completed [facility] Proquad (MMR/VARICELLA) 2006-05-24 00:00:00 Completed [facility] Polio (IPV/OPV) 2006-05-24 00:00:00 Completed [facility] HEPATITIS A 2005-05-19 00:00:00 Completed [facility] Influenza Virus Vaccine 2005-05-19 00:00:00 Completed [facility] HEPATITIS A 2005-05-19 00:00:00 Completed [facility] Influenza Virus Vaccine 2005-05-19 00:00:00 Completed [facility] HEPATITIS A 2005-05-19 00:00:00 Completed [facility] Influenza Virus Vaccine 2005-05-19 00:00:00 Completed [facility] HEPATITIS A 2005-05-19 00:00:00 Completed [facility] Influenza Virus Vaccine 2005-05-19 00:00:00 Completed [facility] HEPATITIS A 2005-05-19 00:00:00 Completed [facility] Influenza Virus Vaccine 2005-05-19 00:00:00 Completed [facility] HEPATITIS A 2005-05-19 00:00:00 Completed [facility] Influenza Virus Vaccine 2005-05-19 00:00:00 Completed [facility] HEPATITIS A 2005-05-19 00:00:00 Completed [facility] Influenza Virus Vaccine 2005-05-19 00:00:00 Completed [facility] HEPATITIS A 2005-05-19 00:00:00 Completed [facility] Influenza Virus Vaccine 2005-05-19 00:00:00 Completed [facility] HEPATITIS A 2005-05-19 00:00:00 Completed [facility] Influenza Virus Vaccine 2005-05-19 00:00:00 Completed [facility] HEPATITIS A 2005-05-19 00:00:00 Completed [facility] Influenza Virus Vaccine 2005-05-19 00:00:00 Completed [facility] HEPATITIS A 2005-05-19 00:00:00 Completed [facility] Influenza Virus Vaccine 2005-05-19 00:00:00 Completed [facility] HEPATITIS A 2005-05-19 00:00:00 Completed [facility] Influenza Virus Vaccine 2005-05-19 00:00:00 Completed [facility] HEPATITIS A 2005-05-19 00:00:00 Completed [facility] Influenza Virus Vaccine 2005-05-19 00:00:00 Completed [facility] HEPATITIS A 2005-05-19 00:00:00 Completed [facility] Influenza Virus Vaccine 2005-05-19 00:00:00 Completed [facility] HEPATITIS A 2005-05-19 00:00:00 Completed [facility] Influenza Virus Vaccine 2005-05-19 00:00:00 Completed [facility] HEPATITIS A 2005-05-19 00:00:00 Completed [facility] Influenza Virus Vaccine 2005-05-19 00:00:00 Completed [facility] HEPATITIS A 2005-05-19 00:00:00 Completed [facility] Influenza Virus Vaccine 2005-05-19 00:00:00 Completed [facility] HEPATITIS A 2005-05-19 00:00:00 Completed [facility] Influenza Virus Vaccine 2005-05-19 00:00:00 Completed [facility] HEPATITIS A 2005-05-19 00:00:00 Completed [facility] Influenza Virus Vaccine 2005-05-19 00:[facility] [facility] 2005[facility] 00:00:00 Completed [facility] Influenza Virus Vaccine 2005-05-19 00:00:00 Completed [facility] HEPATITIS A 2005-05-19 00:00:00 Completed [facility] Influenza Virus Vaccine 2005-05-19 00:00:00 Completed [facility] HEPATITIS A 2005-05-19 00:00:00 Completed [facility] Influenza Virus Vaccine 2005-05-19 00:00:00 Completed [facility] HEPATITIS A 2005-05-19 00:00:00 Completed [facility] Influenza Virus Vaccine 2005-05-19 00:00:00 Completed [facility] HEPATITIS A 2005-05-19 00:00:00 Completed [facility] Influenza Virus Vaccine 2005-05-19 00:00:00 Completed [facility] HEPATITIS A 2005-05-19 00:00:00 Completed [facility] Influenza Virus Vaccine 2005-05-19 00:00:00 Completed [facility] HEPATITIS A 2005-05-19 00:00:00 Completed [facility] Influenza Virus Vaccine 2005-05-19 00:00:00 Completed [facility] HEPATITIS A 2005-05-19 00:00:00 Completed [facility] Influenza Virus Vaccine 2005-05-19 00:00:00 Completed [facility] HEPATITIS A 2005-05-19 00:00:00 Completed [facility] Influenza Virus Vaccine 2005-05-19 00:00:00 Completed [facility] HEPATITIS A 2005-05-19 00:00:00 Completed [facility] Influenza Virus Vaccine 2005-05-19 00:00:00 Completed [facility] HEPATITIS A 2005-05-19 00:00:00 Completed [facility] Influenza Virus Vaccine 2005-05-19 00:00:00 Completed [facility] HEPATITIS A 2005-05-19 00:00:00 Completed [facility] Influenza Virus Vaccine 2005-05-19 00:00:00 Completed [facility] HEPATITIS A 2005-05-19 00:00:00 Completed [facility] Influenza Virus Vaccine 2005-05-19 00:00:00 Completed [facility] HEPATITIS A 2005-05-19 00:00:00 Completed [facility] Influenza Virus Vaccine 2005-05-19 00:00:00 Completed [facility] HEPATITIS A 2005-05-19 00:00:00 Completed [facility] Influenza Virus Vaccine 2005-05-19 00:00:00 Completed [facility] HEPATITIS A 2005-05-19 00:00:00 Completed [facility] Influenza Virus Vaccine 2005-05-19 00:00:00 Completed [facility] HEPATITIS A 2005-05-19 00:00:00 Completed [facility] Influenza Virus Vaccine 2005-05-19 00:00:00 Completed [facility] HEPATITIS A 2005-05-19 00:00:00 Completed [facility] Influenza Virus Vaccine 2005-05-19 00:00:00 Completed [facility] HEPATITIS A 2005-05-19 00:00:00 Completed [facility] Influenza Virus Vaccine 2005-05-19 00:00:00 Completed [facility] HEPATITIS A 2005-05-19 00:00:00 Completed [facility] Influenza Virus Vaccine 2005-05-19 00:00:00 Completed [facility] HEPATITIS A 2005-05-19 00:00:00 Completed [facility] Influenza Virus Vaccine 2005-05-19 00:00:00 Completed [facility] HEPATITIS A 2005-05-19 00:00:00 Completed [facility] Influenza Virus Vaccine 2005-05-19 00:00:00 Completed [facility] HEPATITIS A 2005-05-19 00:00:00 Completed [facility] Influenza Virus Vaccine 2005-05-19 00:00:00 Completed [facility] HEPATITIS A 2005-05-19 00:00:00 Completed [facility] Influenza Virus Vaccine 2005-05-19 00:00:00 Completed [facility] HEPATITIS A 2005-05-19 00:00:00 Completed [facility] Influenza Virus Vaccine 2005-05-19 00:00:00 Completed [facility] HEPATITIS A 2005-05-19 00:00:00 Completed [facility] Influenza Virus Vaccine 2005-05-19 00:00:00 Completed [facility] HEPATITIS A 2005-05-19 00:00:00 Completed [facility] Influenza Virus Vaccine 2005-05-19 00:00:00 Completed [facility] HEPATITIS A 2005-05-19 00:00:00 Completed [facility] Influenza Virus Vaccine 2005-05-19 00:00:00 Completed [facility] HEPATITIS A 2005-05-19 00:00:00 Completed [facility] Influenza Virus Vaccine 2005-05-19 00:00:00 Completed [facility] HEPATITIS A 2005-05-19 00:00:00 Completed [facility] Influenza Virus Vaccine 2005-05-19 00:00:00 Completed [facility] HEPATITIS A 2005-05-19 00:00:00 Completed [facility] Influenza Virus Vaccine 2005-05-19 00:00:00 Completed [facility] HEPATITIS A 2005-05-19 00:00:00 Completed [facility] Influenza Virus Vaccine 2005-05-19 00:00:00 Completed [facility] HEPATITIS A 2005-05-19 00:00:00 Completed [facility] Influenza Virus Vaccine 2005-05-19 00:00:00 Completed [facility] HEPATITIS A 2005-05-19 00:00:00 Completed [facility] Influenza Virus Vaccine 2005-05-19 00:00:00 Completed [facility] HEPATITIS A 2005-05-19 00:00:00 Completed [facility] Influenza Virus Vaccine 2005-05-19 00:00:00 Completed [facility] HEPATITIS A 2005-05-19 00:00:00 Completed [facility] Influenza Virus Vaccine 2005-05-19 00:00:00 Completed [facility] HEPATITIS A 2005-05-19 00:00:00 Completed [facility] Influenza Virus Vaccine 2005-05-19 00:00:00 Completed [facility] HEPATITIS A 2005-05-19 00:00:00 Completed [facility] Influenza Virus Vaccine 2005-05-19 00:00:00 Completed [facility] HEPATITIS A 2005-05-19 00:00:00 Completed [facility] Influenza Virus Vaccine 2005-05-19 00:00:00 Completed [facility] HEPATITIS A 2005-05-19 00:00:00 Completed [facility] Influenza Virus Vaccine 2005-05-19 00:00:00 Completed [facility] HEPATITIS A 2005-05-19 00:00:00 Completed [facility] Influenza Virus Vaccine 2005-05-19 00:00:00 Completed [facility] HEPATITIS A 2005-05-19 00:00:00 Completed [facility] Influenza Virus Vaccine 2005-05-19 00:00:00 Completed [facility] HEPATITIS A 2005-05-19 00:00:00 Completed [facility] Influenza Virus Vaccine 2005-05-19 00:00:00 Completed [facility] HEPATITIS A 2005-05-19 00:00:00 Completed [facility] Influenza Virus Vaccine 2005-05-19 00:00:00 Completed [facility] HEPATITIS A 2005-05-19 00:00:00 Completed [facility] Influenza Virus Vaccine 2005-05-19 00:00:00 Completed [facility] HEPATITIS A 2005-05-19 00:00:00 Completed [facility] Influenza Virus Vaccine 2005-05-19 00:00:00 Completed [facility] HEPATITIS A 2005-05-19 00:00:00 Completed [facility] Influenza Virus Vaccine 2005-05-19 00:00:00 Completed [facility] HEPATITIS A 2005-05-19 00:00:00 Completed [facility] Influenza Virus Vaccine 2005-05-19 00:00:00 Completed [facility] HEPATITIS A 2005-05-19 00:00:00 Completed [facility] Influenza Virus Vaccine 2005-05-19 00:00:00 Completed [facility] HEPATITIS A 2005-05-19 00:00:00 Completed [facility] Influenza Virus Vaccine 2005-05-19 00:00:00 Completed [facility] HEPATITIS A 2005-05-19 00:00:00 Completed [facility] Influenza Virus Vaccine 2005-05-19 00:00:00 Completed [facility] HEPATITIS A 2005-05-19 00:00:00 Completed [facility] Influenza Virus Vaccine 2005-05-19 00:00:00 Completed [facility] HEPATITIS A 2005-05-19 00:00:00 Completed [facility] Influenza Virus Vaccine 2005-05-19 00:00:00 Completed [facility] HEPATITIS A 2005-05-19 00:00:00 Completed [facility] Influenza Virus Vaccine 2005-05-19 00:00:00 Completed [facility] HEPATITIS A 2005-05-19 00:00:00 Completed [facility] Influenza Virus Vaccine 2005-05-19 00:00:00 Completed [facility] HEPATITIS A 2005-05-19 00:00:00 Completed [facility] Influenza Virus Vaccine 2005-05-19 00:00:00 Completed [facility] HEPATITIS A 2005-05-19 00:00:00 Completed [facility] Influenza Virus Vaccine 2005-05-19 00:00:00 Completed [facility] HEPATITIS A 2005-05-19 00:00:00 Completed [facility] Influenza Virus Vaccine 2005-05-19 00:00:00 Completed [facility] HEPATITIS A 2005-05-19 00:00:00 Completed [facility] Influenza Virus Vaccine 2005-05-19 00:00:00 Completed [facility] HEPATITIS A 2005-05-19 00:00:00 Completed [facility] Influenza Virus Vaccine 2005-05-19 00:00:00 Completed [facility] HEPATITIS A 2005-05-19 00:00:00 Completed [facility] Influenza Virus Vaccine 2005-05-19 00:00:00 Completed [facility] HEPATITIS A 2005-05-19 00:00:00 Completed [facility] Influenza Virus Vaccine 2005-05-19 00:00:00 Completed [facility] HEPATITIS A 2005-05-19 00:00:00 Completed [facility] Influenza Virus Vaccine 2005-05-19 00:00:00 Completed [facility] HEPATITIS A 2005-05-19 00:00:00 Completed [facility] Influenza Virus Vaccine 2005-05-19 00:00:00 Completed [facility] HEPATITIS A 2005-05-19 00:00:00 Completed [facility] Influenza Virus Vaccine 2005-05-19 00:00:00 Completed [facility] HEPATITIS A 2005-05-19 00:00:00 Completed [facility] Influenza Virus Vaccine 2005-05-19 00:00:00 Completed [facility] HEPATITIS A 2005-05-19 00:00:00 Completed [facility] Influenza Virus Vaccine 2005-05-19 00:00:00 Completed [facility] HEPATITIS A 2005-05-19 00:00:00 Completed [facility] Influenza Virus Vaccine 2005-05-19 00:00:00 Completed [facility] HEPATITIS A 2005-05-19 00:00:00 Completed [facility] Influenza Virus Vaccine 2005-05-19 00:00:00 Completed [facility] HEPATITIS A 2005-05-19 00:00:00 Completed [facility] Influenza Virus Vaccine 2005-05-19 00:00:00 Completed [facility] HEPATITIS A 2005-05-19 00:00:00 Completed [facility] Influenza Virus Vaccine 2005-05-19 00:00:00 Completed [facility] HEPATITIS A 2005-05-19 00:00:00 Completed [facility] Influenza Virus Vaccine 2005-05-19 00:00:00 Completed [facility] HEPATITIS A 2005-05-19 00:00:00 Completed [facility] Influenza Virus Vaccine 2005-05-19 00:00:00 Completed [facility] HEPATITIS A 2005-05-19 00:00:00 Completed [facility] Influenza Virus Vaccine 2005-05-19 00:00:00 Completed [facility] HEPATITIS A 2005-05-19 00:00:00 Completed [facility] Influenza Virus Vaccine 2005-05-19 00:00:00 Completed [facility] HEPATITIS A 2005-05-19 00:00:00 Completed [facility] Influenza Virus Vaccine 2005-05-19 00:00:00 Completed [facility] HEPATITIS A 2005-05-19 00:00:00 Completed [facility] Influenza Virus Vaccine 2005-05-19 00:00:00 Completed [facility] HEPATITIS A 2005-05-19 00:00:00 Completed [facility] Influenza Virus Vaccine 2005-05-19 00:00:00 Completed [facility] HEPATITIS A 2005-05-19 00:00:00 Completed [facility] Influenza Virus Vaccine 2005-05-19 00:00:00 Completed [facility] HEPATITIS A 2005-05-19 00:00:00 Completed [facility] Influenza Virus Vaccine 2005-05-19 00:00:00 Completed [facility] HEPATITIS A 2005-05-19 00:00:00 Completed [facility] Influenza Virus Vaccine 2005-05-19 00:00:00 Completed [facility] HEPATITIS A 2005-05-19 00:00:00 Completed [facility] Influenza Virus Vaccine 2005-05-19 00:00:00 Completed [facility] HEPATITIS A 2005-05-19 00:00:00 Completed [facility] Influenza Virus Vaccine 2005-05-19 00:00:00 Completed [facility] HEPATITIS A 2005-05-19 00:00:00 Completed [facility] Influenza Virus Vaccine 2005-05-19 00:00:00 Completed [facility] HEPATITIS A 2005-05-19 00:00:00 Completed [facility] Influenza Virus Vaccine 2005-05-19 00:00:00 Completed [facility] HEPATITIS A 2005-05-19 00:00:00 Completed [facility] Influenza Virus Vaccine 2005-05-19 00:00:00 Completed [facility] HEPATITIS A 2004-05-17 00:00:00 Completed [facility] HEPATITIS A 2004-05-17 00:00:00 Completed [facility] HEPATITIS A 2004-05-17 00:00:00 Completed [facility] HEPATITIS A 2004-05-17 00:00:00 Completed [facility] HEPATITIS A 2004-05-17 00:00:00 Completed [facility] HEPATITIS A 2004-05-17 00:00:00 Completed [facility] HEPATITIS A 2004-05-17 00:00:00 Completed [facility] HEPATITIS A 2004-05-17 00:00:00 Completed [facility] HEPATITIS A 2004-05-17 00:00:00 Completed [facility] HEPATITIS A 2004-05-17 00:00:00 Completed [facility] HEPATITIS A 2004-05-17 00:00:00 Completed [facility] HEPATITIS A 2004-05-17 00:00:00 Completed [facility] HEPATITIS A 2004-05-17 00:00:00 Completed [facility] HEPATITIS A 2004-05-17 00:00:00 Completed [facility] HEPATITIS A 2004-05-17 00:00:00 Completed [facility] HEPATITIS A 2004-05-17 00:00:00 Completed [facility] HEPATITIS A 2004-05-17 00:00:00 Completed [facility] HEPATITIS A 2004-05-17 00:00:00 Completed [facility] HEPATITIS A 2004-05-17 00:00:00 Completed [facility] HEPATITIS A 2004-05-17 00:00:00 Completed [facility] HEPATITIS A 2004-05-17 00:00:00 Completed [facility] HEPATITIS A 2004-05-17 00:00:00 Completed [facility] HEPATITIS A 2004-05-17 00:00:00 Completed [facility] HEPATITIS A 2004-05-17 00:00:00 Completed [facility] HEPATITIS A 2004-05-17 00:00:00 Completed [facility] HEPATITIS A 2004-05-17 00:00:00 Completed [facility] HEPATITIS A 2004-05-17 00:00:00 Completed [facility] HEPATITIS A 2004-05-17 00:00:00 Completed [facility] HEPATITIS A 2004-05-17 00:00:00 Completed [facility] HEPATITIS A 2004-05-17 00:00:00 Completed [facility] HEPATITIS A 2004-05-17 00:00:00 Completed [facility] HEPATITIS A 2004-05-17 00:00:00 Completed [facility] HEPATITIS A 2004-05-17 00:00:00 Completed [facility] HEPATITIS A 2004-05-17 00:00:00 Completed [facility] HEPATITIS A 2004-05-17 00:00:00 Completed [facility] HEPATITIS A 2004-05-17 00:00:00 Completed [facility] HEPATITIS A 2004-05-17 00:00:00 Completed [facility] HEPATITIS A 2004-05-17 00:00:00 Completed [facility] HEPATITIS A 2004-05-17 00:00:00 Completed [facility] HEPATITIS A 2004-05-17 00:00:00 Completed [facility] HEPATITIS A 2004-05-17 00:00:00 Completed [facility] HEPATITIS A 2004-05-17 00:00:00 Completed [facility] HEPATITIS A 2004-05-17 00:00:00 Completed [facility] HEPATITIS A 2004-05-17 00:00:00 Completed [facility] HEPATITIS A 2004-05-17 00:00:00 Completed [facility] HEPATITIS A 2004-05-17 00:00:00 Completed [facility] HEPATITIS A 2004-05-17 00:00:00 Completed [facility] HEPATITIS A 2004-05-17 00:00:00 Completed [facility] HEPATITIS A 2004-05-17 00:00:00 Completed [facility] HEPATITIS A 2004-05-17 00:00:00 Completed [facility] HEPATITIS A 2004-05-17 00:00:00 Completed [facility] HEPATITIS A 2004-05-17 00:00:00 Completed [facility] HEPATITIS A 2004-05-17 00:00:00 Completed [facility] HEPATITIS A 2004-05-17 00:00:00 Completed [facility] HEPATITIS A 2004-05-17 00:00:00 Completed [facility] HEPATITIS A 2004-05-17 00:00:00 Completed [facility] HEPATITIS A 2004-05-17 00:00:00 Completed [facility] HEPATITIS A 2004-05-17 00:00:00 Completed [facility] HEPATITIS A 2004-05-17 00:00:00 Completed [facility] HEPATITIS A 2004-05-17 00:00:00 Completed [facility] HEPATITIS A 2004-05-17 00:00:00 Completed [facility] HEPATITIS A 2004-05-17 00:00:00 Completed [facility] HEPATITIS A 2004-05-17 00:00:00 Completed [facility] HEPATITIS A 2004-05-17 00:00:00 Completed [facility] HEPATITIS A 2004-05-17 00:00:00 Completed [facility] HEPATITIS A 2004-05-17 00:00:00 Completed [facility] HEPATITIS A 2004-05-17 00:00:00 Completed [facility] HEPATITIS A 2004-05-17 00:00:00 Completed [facility] HEPATITIS A 2004-05-17 00:00:00 Completed [facility] HEPATITIS A 2004-05-17 00:00:00 Completed [facility] HEPATITIS A 2004-05-17 00:00:00 Completed [facility] HEPATITIS A 2004-05-17 00:00:00 Completed [facility] HEPATITIS A 2004-05-17 00:00:00 Completed [facility] HEPATITIS A 2004-05-17 00:00:00 Completed [facility] HEPATITIS A 2004-05-17 00:00:00 Completed [facility] HEPATITIS A 2004-05-17 00:00:00 Completed [facility] HEPATITIS A 2004-05-17 00:00:00 Completed [facility] HEPATITIS A 2004-05-17 00:00:00 Completed [facility] HEPATITIS A 2004-05-17 00:00:00 Completed [facility] HEPATITIS A 2004-05-17 00:00:00 Completed [facility] HEPATITIS A 2004-05-17 00:00:00 Completed [facility] HEPATITIS A 2004-05-17 00:00:00 Completed [facility] HEPATITIS A 2004-05-17 00:00:00 Completed [facility] HEPATITIS A 2004-05-17 00:00:00 Completed [facility] HEPATITIS A 2004-05-17 00:00:00 Completed [facility] HEPATITIS A 2004-05-17 00:00:00 Completed [facility] HEPATITIS A 2004-05-17 00:00:00 Completed [facility] HEPATITIS A 2004-05-17 00:00:00 Completed [facility] HEPATITIS A 2004-05-17 00:00:00 Completed [facility] HEPATITIS A 2004-05-17 00:00:00 Completed [facility] HEPATITIS A 2004-05-17 00:00:00 Completed [facility] HEPATITIS A 2004-05-17 00:00:00 Completed [facility] HEPATITIS A 2004-05-17 00:00:00 Completed [facility] HEPATITIS A 2004-05-17 00:00:00 Completed [facility] HEPATITIS A 2004-05-17 00:00:00 Completed [facility] HEPATITIS A 2004-05-17 00:00:00 Completed [facility] HEPATITIS A 2004-05-17 00:00:00 Completed [facility] HEPATITIS A 2004-05-17 00:00:00 Completed [facility] HEPATITIS A 2004-05-17 00:00:00 Completed [facility] HEPATITIS A 2004-05-17 00:00:00 Completed [facility] HEPATITIS A 2004-05-17 00:00:00 Completed [facility] HEPATITIS A 2004-05-17 00:00:00 Completed [facility] HEPATITIS A 2004-05-17 00:00:00 Completed [facility] HEPATITIS A 2004-05-17 00:00:00 Completed [facility] HEPATITIS A 2004-05-17 00:00:00 Completed [facility] Polio (IPV/OPV) 2003-08-21 00:00:00 Completed [facility] Polio (IPV/OPV) 2003-08-21 00:00:00 Completed [facility] Polio (IPV/OPV) 2003-08-21 00:00:00 Completed [facility] Polio (IPV/OPV) 2003-08-21 00:00:00 Completed [facility] Polio (IPV/OPV) 2003-08-21 00:00:00 Completed [facility] Polio (IPV/OPV) 2003-08-21 00:00:00 Completed [facility] Polio (IPV/OPV) 2003-08-21 00:00:00 Completed [facility] Polio (IPV/OPV) 2003-08-21 00:00:00 Completed [facility] Polio (IPV/OPV) 2003-08-21 00:00:00 Completed [facility] Polio (IPV/OPV) 2003-08-21 00:00:00 Completed [facility] Polio (IPV/OPV) 2003-08-21 00:00:00 Completed [facility] Polio (IPV/OPV) 2003-08-21 00:00:00 Completed [facility] Polio (IPV/OPV) 2003-08-21 00:00:00 Completed [facility] Polio (IPV/OPV) 2003-08-21 00:00:00 Completed [facility] Polio (IPV/OPV) 2003-08-21 00:00:00 Completed [facility] Polio (IPV/OPV) 2003-08-21 00:00:00 Completed [facility] Polio (IPV/OPV) 2003-08-21 00:00:00 Completed [facility] Polio (IPV/OPV) 2003-08-21 00:00:00 Completed [facility] Polio (IPV/OPV) 2003-08-21 00:00:00 Completed [facility] Polio (IPV/OPV) 2003-08-21 00:00:00 Completed [facility] Polio (IPV/OPV) 2003-08-21 00:00:00 Completed [facility] Polio (IPV/OPV) 2003-08-21 00:00:00 Completed [facility] Polio (IPV/OPV) 2003-08-21 00:00:00 Completed [facility] Polio (IPV/OPV) 2003-08-21 00:00:00 Completed [facility] Polio (IPV/OPV) 2003-08-21 00:00:00 Completed [facility] Polio (IPV/OPV) 2003-08-21 00:00:00 Completed [facility] Polio (IPV/OPV) 2003-08-21 00:00:00 Completed [facility] Polio (IPV/OPV) 2003-08-21 00:00:00 Completed [facility] Polio (IPV/OPV) 2003-08-21 00:00:00 Completed [facility] Polio (IPV/OPV) 2003-08-21 00:00:00 Completed [facility] Polio (IPV/OPV) 2003-08-21 00:00:00 Completed [facility] Polio (IPV/OPV) 2003-08-21 00:00:00 Completed [facility] Polio (IPV/OPV) 2003-08-21 00:00:00 Completed [facility] Polio (IPV/OPV) 2003-08-21 00:00:00 Completed [facility] Polio (IPV/OPV) 2003-08-21 00:00:00 Completed [facility] Polio (IPV/OPV) 2003-08-21 00:00:00 Completed [facility] Polio (IPV/OPV) 2003-08-21 00:00:00 Completed [facility] Polio (IPV/OPV) 2003-08-21 00:00:00 Completed [facility] Polio (IPV/OPV) 2003-08-21 00:00:00 Completed [facility] Polio (IPV/OPV) 2003-08-21 00:00:00 Completed [facility] Polio (IPV/OPV) 2003-08-21 00:00:00 Completed [facility] Polio (IPV/OPV) 2003-08-21 00:00:00 Completed [facility] Polio (IPV/OPV) 2003-08-21 00:00:00 Completed [facility] Polio (IPV/OPV) 2003-08-21 00:00:00 Completed [facility] Polio (IPV/OPV) 2003-08-21 00:00:00 Completed [facility] Polio (IPV/OPV) 2003-08-21 00:00:00 Completed [facility] Polio (IPV/OPV) 2003-08-21 00:00:00 Completed [facility] Polio (IPV/OPV) 2003-08-21 00:00:00 Completed [facility] Polio (IPV/OPV) 2003-08-21 00:00:00 Completed [facility] Polio (IPV/OPV) 2003-08-21 00:00:00 Completed [facility] Polio (IPV/OPV) 2003-08-21 00:00:00 Completed [facility] Polio (IPV/OPV) 2003-08-21 00:00:00 Completed [facility] Polio (IPV/OPV) 2003-08-21 00:00:00 Completed [facility] Polio (IPV/OPV) 2003-08-21 00:00:00 Completed [facility] Polio (IPV/OPV) 2003-08-21 00:00:00 Completed [facility] Polio (IPV/OPV) 2003-08-21 00:00:00 Completed [facility] Polio (IPV/OPV) 2003-08-21 00:00:00 Completed [facility] Polio (IPV/OPV) 2003-08-21 00:00:00 Completed [facility] Polio (IPV/OPV) 2003-08-21 00:00:00 Completed [facility] Polio (IPV/OPV) 2003-08-21 00:00:00 Completed [facility] Polio (IPV/OPV) 2003-08-21 00:00:00 Completed [facility] Polio (IPV/OPV) 2003-08-21 00:00:00 Completed [facility] Polio (IPV/OPV) 2003-08-21 00:00:00 Completed [facility] Polio (IPV/OPV) 2003-08-21 00:00:00 Completed [facility] Polio (IPV/OPV) 2003-08-21 00:00:00 Completed [facility] Polio (IPV/OPV) 2003-08-21 00:00:00 Completed [facility] Polio (IPV/OPV) 2003-08-21 00:00:00 Completed [facility] Polio (IPV/OPV) 2003-08-21 00:00:00 Completed [facility] Polio (IPV/OPV) 2003-08-21 00:00:00 Completed [facility] Polio (IPV/OPV) 2003-08-21 00:00:00 Completed [facility] Polio (IPV/OPV) 2003-08-21 00:00:00 Completed [facility] Polio (IPV/OPV) 2003-08-21 00:00:00 [facility]pleted [facility] [facility] 2003-08-21 00:00:00 Completed [facility] Polio (IPV/OPV) 2003-08-21 00:00:00 Completed [facility] Polio (IPV/OPV) 2003-08-21 00:00:00 Completed [facility] Polio (IPV/OPV) 2003-08-21 00:00:00 Completed [facility] Polio (IPV/OPV) 2003-08-21 00:00:00 Completed [facility] HIB 4 Dose Schedule 2003-05-22 00:00:00 Completed [facility] MMR 2003-05-22 00:00:00 Completed [facility] Pneumococcal 7 Conjugate, PCV7 (Prevnar7) 2003-05-22 00:00:00 Completed [facility] Varicella (varivax)(chicken pox) 2003-05-22 00:00:00 Completed [facility] HIB 4 Dose Schedule 2003-05-22 00:00:00 Completed [facility] MMR 2003-05-22 00:00:00 Completed [facility] Pneumococcal 7 Conjugate, PCV7 (Prevnar7) 2003-05-22 00:00:00 Completed [facility] Varicella (varivax)(chicken pox) 2003-05-22 00:00:00 Completed [facility] HIB 4 Dose Schedule 2003-05-22 00:00:00 Completed [facility] MMR 2003-05-22 00:00:00 Completed [facility] Pneumococcal 7 Conjugate, PCV7 (Prevnar7) 2003-05-22 00:00:00 Completed [facility] Varicella (varivax)(chicken pox) 2003-05-22 00:00:00 Completed [facility] HIB 4 Dose Schedule 2003-05-22 00:00:00 Completed [facility] MMR 2003-05-22 00:00:00 Completed [facility] Pneumococcal 7 Conjugate, PCV7 (Prevnar7) 2003-05-22 00:00:00 Completed [facility] Varicella (varivax)(chicken pox) 2003-05-22 00:00:00 Completed [facility] HIB 4 Dose Schedule 2003-05-22 00:00:00 Completed [facility] MMR 2003-05-22 00:00:00 Completed [facility] Pneumococcal 7 Conjugate, PCV7 (Prevnar7) 2003-05-22 00:00:00 Completed [facility] Varicella (varivax)(chicken pox) 2003-05-22 00:00:00 Completed [facility] HIB 4 Dose Schedule 2003-05-22 00:00:00 Completed [facility] MMR 2003-05-22 00:00:00 Completed [facility] Pneumococcal 7 Conjugate, PCV7 (Prevnar7) 2003-05-22 00:00:00 Completed [facility] Varicella (varivax)(chicken pox) 2003-05-22 00:00:00 Completed [facility] HIB 4 Dose Schedule 2003-05-22 00:00:00 Completed [facility] MMR 2003-05-22 00:00:00 Completed [facility] Pneumococcal 7 Conjugate, PCV7 (Prevnar7) 2003-05-22 00:00:00 Completed [facility] Varicella (varivax)(chicken pox) 2003-05-22 00:00:00 Completed [facility] HIB 4 Dose Schedule 2003-05-22 00:00:00 Completed [facility] MMR 2003-05-22 00:00:00 Completed [facility] Pneumococcal 7 Conjugate, PCV7 (Prevnar7) 2003-05-22 00:00:00 Completed [facility] Varicella (varivax)(chicken pox) 2003-05-22 00:00:00 Completed [facility] HIB 4 Dose Schedule 2003-05-22 00:00:00 Completed [facility] MMR 2003-05-22 00:00:00 Completed [facility] Pneumococcal 7 Conjugate, PCV7 (Prevnar7) 2003-05-22 00:00:00 Completed [facility] Varicella (varivax)(chicken pox) 2003-05-22 00:00:00 Completed [facility] HIB 4 Dose Schedule 2003-05-22 00:00:00 Completed [facility] MMR 2003-05-22 00:00:00 Completed [facility] Pneumococcal 7 Conjugate, PCV7 (Prevnar7) 2003-05-22 00:00:00 Completed [facility] Varicella (varivax)(chicken pox) 2003-05-22 00:00:00 Completed [facility] HIB 4 Dose Schedule 2003-05-22 00:00:00 Completed [facility] MMR 2003-05-22 00:00:00 Completed [facility] Pneumococcal 7 Conjugate, PCV7 (Prevnar7) 2003-05-22 00:00:00 Completed [facility] Varicella (varivax)(chicken pox) 2003-05-22 00:00:00 Completed [facility] HIB 4 Dose Schedule 2003-05-22 00:00:00 Completed [facility] MMR 2003-05-22 00:00:00 Completed [facility] Pneumococcal 7 Conjugate, PCV7 (Prevnar7) 2003-05-22 00:00:00 Completed [facility] Varicella (varivax)(chicken pox) 2003-05-22 00:00:00 Completed [facility] HIB 4 Dose Schedule 2003-05-22 00:00:00 Completed [facility] MMR 2003-05-22 00:00:00 Completed [facility] Pneumococcal 7 Conjugate, PCV7 (Prevnar7) 2003-05-22 00:00:00 Completed [facility] Varicella (varivax)(chicken pox) 2003-05-22 00:00:00 Completed [facility] HIB 4 Dose Schedule 2003-05-22 00:00:00 Completed [facility] MMR 2003-05-22 00:00:00 Completed [facility] Pneumococcal 7 Conjugate, PCV7 (Prevnar7) 2003-05-22 00:00:00 Completed [facility] Varicella (varivax)(chicken pox) 2003-05-22 00:00:00 Completed [facility] HIB 4 Dose Schedule 2003-05-22 00:00:00 Completed [facility] MMR 2003-05-22 00:00:00 Completed [facility] Pneumococcal 7 Conjugate, PCV7 (Prevnar7) 2003-05-22 00:00:00 Completed [facility] Varicella (varivax)(chicken pox) 2003-05-22 00:00:00 Completed [facility] HIB 4 Dose Schedule 2003-05-22 00:00:00 Completed [facility] MMR 2003-05-22 00:00:00 Completed [facility] Pneumococcal 7 Conjugate, PCV7 (Prevnar7) 2003-05-22 00:00:00 Completed [facility] Varicella (varivax)(chicken pox) 2003-05-22 00:00:00 Completed [facility] HIB 4 Dose Schedule 2003-05-22 00:00:00 Completed [facility] MMR 2003-05-22 00:00:00 Completed [facility] Pneumococcal 7 Conjugate, PCV7 (Prevnar7) 2003-05-22 00:00:00 Completed [facility] Varicella (varivax)(chicken pox) 2003-05-22 00:00:00 Completed [facility] HIB 4 Dose Schedule 2003-05-22 00:00:00 Completed [facility] MMR 2003-05-22 00:00:00 Completed [facility] Pneumococcal 7 Conjugate, PCV7 (Prevnar7) 2003-05-22 00:00:00 Completed [facility] Varicella (varivax)(chicken pox) 2003-05-22 00:00:00 Completed [facility] HIB 4 Dose Schedule 2003-05-22 00:00:00 Completed [facility] MMR 2003-05-22 00:00:00 Completed [facility] Pneumococcal 7 Conjugate, PCV7 (Prevnar7) 2003-05-22 00:00:00 Completed [facility] Varicella (varivax)(chicken pox) 2003-05-22 00:00:00 Completed [facility] HIB 4 Dose Schedule 2003-05-22 00:00:00 Completed [facility] MMR 2003-05-22 00:00:00 Completed [facility] Pneumococcal 7 Conjugate, PCV7 (Prevnar7) 2003-05-22 00:00:00 Completed [facility] Varicella (varivax)(chicken pox) 2003-05-22 00:00:00 Completed [facility] HIB 4 Dose Schedule 2003-05-22 00:00:00 Completed [facility] MMR 2003-05-22 00:00:00 Completed [facility] Pneumococcal 7 Conjugate, PCV7 (Prevnar7) 2003-05-22 00:00:00 Completed [facility] Varicella (varivax)(chicken pox) 2003-05-22 00:00:00 Completed [facility] HIB 4 Dose Schedule 2003-05-22 00:00:00 Completed [facility] MMR 2003-05-22 00:00:00 Completed [facility] Pneumococcal 7 Conjugate, PCV7 (Prevnar7) 2003-05-22 00:00:00 Completed [facility] Varicella (varivax)(chicken pox) 2003-05-22 00:00:00 Completed [facility] HIB 4 Dose Schedule 2003-05-22 00:00:00 Completed [facility] MMR 2003-05-22 00:00:00 Completed [facility] Pneumococcal 7 Conjugate, PCV7 (Prevnar7) 2003-05-22 00:00:00 Completed [facility] Varicella (varivax)(chicken pox) 2003-05-22 00:00:00 Completed [facility] HIB 4 Dose Schedule 2003-05-22 00:00:00 Completed [facility] MMR 2003-05-22 00:00:00 Completed [facility] Pneumococcal 7 Conjugate, PCV7 (Prevnar7) 2003-05-22 00:00:00 Completed [facility] Varicella (varivax)(chicken pox) 2003-05-22 00:00:00 Completed [facility] HIB 4 Dose Schedule 2003-05-22 00:00:00 Completed [facility] MMR 2003-05-22 00:00:00 Completed [facility] Pneumococcal 7 Conjugate, PCV7 (Prevnar7) 2003-05-22 00:00:00 Completed [facility] Varicella (varivax)(chicken pox) 2003-05-22 00:00:00 Completed [facility] HIB 4 Dose Schedule 2003-05-22 00:00:00 Completed [facility] MMR 2003-05-22 00:00:00 Completed [facility] Pneumococcal 7 Conjugate, PCV7 (Prevnar7) 2003-05-22 00:00:00 Completed [facility] Varicella (varivax)(chicken pox) 2003-05-22 00:00:00 Completed [facility] HIB 4 Dose Schedule 2003-05-22 00:00:00 Completed [facility] MMR 2003-05-22 00:00:00 Completed [facility] Pneumococcal 7 Conjugate, PCV7 (Prevnar7) 2003-05-22 00:00:00 Completed [facility] Varicella (varivax)(chicken pox) 2003-05-22 00:00:00 Completed [facility] HIB 4 Dose Schedule 2003-05-22 00:00:00 Completed [facility] MMR 2003-05-22 00:00:00 Completed [facility] Pneumococcal 7 Conjugate, PCV7 (Prevnar7) 2003-05-22 00:00:00 Completed [facility] Varicella (varivax)(chicken pox) 2003-05-22 00:00:00 Completed [facility] HIB 4 Dose Schedule 2003-05-22 00:00:00 Completed [facility] MMR 2003-05-22 00:00:00 Completed [facility] Pneumococcal 7 Conjugate, PCV7 (Prevnar7) 2003-05-22 00:00:00 Completed [facility] Varicella (varivax)(chicken pox) 2003-05-22 00:00:00 Completed [facility] HIB 4 Dose Schedule 2003-05-22 00:00:00 Completed [facility] MMR 2003-05-22 00:00:00 Completed [facility] Pneumococcal 7 Conjugate, PCV7 (Prevnar7) 2003-05-22 00:00:00 Completed [facility] Varicella (varivax)(chicken pox) 2003-05-22 00:00:00 Completed [facility] HIB 4 Dose Schedule 2003-05-22 00:00:00 Completed [facility] MMR 2003-05-22 00:00:00 Completed [facility] Pneumococcal 7 Conjugate, PCV7 (Prevnar7) 2003-05-22 00:00:00 Completed [facility] Varicella (varivax)(chicken pox) 2003-05-22 00:00:00 Completed [facility] HIB 4 Dose Schedule 2003-05-22 00:00:00 Completed [facility] MMR 2003-05-22 00:00:00 Completed [facility] Pneumococcal 7 Conjugate, PCV7 (Prevnar7) 2003-05-22 00:00:00 Completed [facility] Varicella (varivax)(chicken pox) 2003-05-22 00:00:00 Completed [facility] HIB 4 Dose Schedule 2003-05-22 00:00:00 Completed [facility] MMR 2003-05-22 00:00:00 Completed [facility] Pneumococcal 7 Conjugate, PCV7 (Prevnar7) 2003-05-22 00:00:00 Completed [facility] Varicella (varivax)(chicken pox) 2003-05-22 00:00:00 Completed [facility] HIB 4 Dose Schedule 2003-05-22 00:00:00 Completed [facility] MMR 2003-05-22 00:00:00 Completed [facility] Pneumococcal 7 Conjugate, PCV7 (Prevnar7) 2003-05-22 00:00:00 Completed [facility] Varicella (varivax)(chicken pox) 2003-05-22 00:00:00 Completed [facility] HIB 4 Dose Schedule 2003-05-22 00:00:00 Completed [facility] MMR 2003-05-22 00:00:00 Completed [facility] Pneumococcal 7 Conjugate, PCV7 (Prevnar7) 2003-05-22 00:00:00 Completed [facility] Varicella (varivax)(chicken pox) 2003-05-22 00:00:00 Completed [facility] HIB 4 Dose Schedule 2003-05-22 00:00:00 Completed [facility] MMR 2003-05-22 00:00:00 Completed [facility] Pneumococcal 7 Conjugate, PCV7 (Prevnar7) 2003-05-22 00:00:00 Completed [facility] Varicella (varivax)(chicken pox) 2003-05-22 00:00:00 Completed [facility] HIB 4 Dose Schedule 2003-05-22 00:00:00 Completed [facility] MMR 2003-05-22 00:00:00 Completed [facility] Pneumococcal 7 Conjugate, PCV7 (Prevnar7) 2003-05-22 00:00:00 Completed [facility] Varicella (varivax)(chicken pox) 2003-05-22 00:00:00 Completed [facility] HIB 4 Dose Schedule 2003-05-22 00:00:00 Completed [facility] MMR 2003-05-22 00:00:00 Completed [facility] Pneumococcal 7 Conjugate, PCV7 (Prevnar7) 2003-05-22 00:00:00 Completed [facility] Varicella (varivax)(chicken pox) 2003-05-22 00:00:00 Completed [facility] HIB 4 Dose Schedule 2003-05-22 00:00:00 Completed [facility] MMR 2003-05-22 00:00:00 Completed [facility] Pneumococcal 7 Conjugate, PCV7 (Prevnar7) 2003-05-22 00:00:00 Completed [facility] Varicella (varivax)(chicken pox) 2003-05-22 00:00:00 Completed [facility] HIB 4 Dose Schedule 2003-05-22 00:00:00 Completed [facility] MMR 2003-05-22 00:00:00 Completed [facility] Pneumococcal 7 Conjugate, PCV7 (Prevnar7) 2003-05-22 00:00:00 Completed [facility] Varicella (varivax)(chicken pox) 2003-05-22 00:00:00 Completed [facility] HIB 4 Dose Schedule 2003-05-22 00:00:00 Completed [facility] MMR 2003-05-22 00:00:00 Completed [facility] Pneumococcal 7 Conjugate, PCV7 (Prevnar7) 2003-05-22 00:00:00 Completed [facility] Varicella (varivax)(chicken pox) 2003-05-22 00:00:00 Completed [facility] HIB 4 Dose Schedule 2003-05-22 00:00:00 Completed [facility] MMR 2003-05-22 00:00:00 Completed [facility] Pneumococcal 7 Conjugate, PCV7 (Prevnar7) 2003-05-22 00:00:00 Completed [facility] Varicella (varivax)(chicken pox) 2003-05-22 00:00:00 Completed [facility] HIB 4 Dose Schedule 2003-05-22 00:00:00 Completed [facility] MMR 2003-05-22 00:00:00 Completed [facility] Pneumococcal 7 Conjugate, PCV7 (Prevnar7) 2003-05-22 00:00:00 Completed [facility] Varicella (varivax)(chicken pox) 2003-05-22 00:00:00 Completed [facility] HIB 4 Dose Schedule 2003-05-22 00:00:00 Completed [facility] MMR 2003-05-22 00:00:00 Completed [facility] Pneumococcal 7 Conjugate, PCV7 (Prevnar7) 2003-05-22 00:00:00 Completed [facility] Varicella (varivax)(chicken pox) 2003-05-22 00:00:00 Completed [facility] HIB 4 Dose Schedule 2003-05-22 00:00:00 Completed [facility] MMR 2003-05-22 00:00:00 Completed [facility] Pneumococcal 7 Conjugate, PCV7 (Prevnar7) 2003-05-22 00:00:00 Completed [facility] Varicella (varivax)(chicken pox) 2003-05-22 00:00:00 Completed [facility] HIB 4 Dose Schedule 2003-05-22 00:00:00 Completed [facility] MMR 2003-05-22 00:00:00 Completed [facility] Pneumococcal 7 Conjugate, PCV7 (Prevnar7) 2003-05-22 00:00:00 Completed [facility] Varicella (varivax)(chicken pox) 2003-05-22 00:00:00 Completed [facility] HIB 4 Dose Schedule 2003-05-22 00:00:00 Completed [facility] MMR 2003-05-22 00:00:00 Completed [facility] Pneumococcal 7 Conjugate, PCV7 (Prevnar7) 2003-05-22 00:00:00 Completed [facility] Varicella (varivax)(chicken pox) 2003-05-22 00:00:00 Completed [facility] HIB 4 Dose Schedule 2003-05-22 00:00:00 Completed [facility] MMR 2003-05-22 00:00:00 Completed [facility] Pneumococcal 7 Conjugate, PCV7 (Prevnar7) 2003-05-22 00:00:00 Completed [facility] Varicella (varivax)(chicken pox) 2003-05-22 00:00:00 Completed [facility] HIB 4 Dose Schedule 2003-05-22 00:00:00 Completed [facility] MMR 2003-05-22 00:00:00 Completed [facility] Pneumococcal 7 Conjugate, PCV7 (Prevnar7) 2003-05-22 00:00:00 Completed [facility] Varicella (varivax)(chicken pox) 2003-05-22 00:00:00 Completed [facility] HIB 4 Dose Schedule 2003-05-22 00:00:00 Completed [facility] MMR 2003-05-22 00:00:00 Completed [facility] Pneumococcal 7 Conjugate, PCV7 (Prevnar7) 2003-05-22 00:00:00 Completed [facility] Varicella (varivax)(chicken pox) 2003-05-22 00:00:00 Completed [facility] HIB 4 Dose Schedule 2003-05-22 00:00:00 Completed [facility] MMR 2003-05-22 00:00:00 Completed [facility] Pneumococcal 7 Conjugate, PCV7 (Prevnar7) 2003-05-22 00:00:00 Completed [facility] Varicella (varivax)(chicken pox) 2003-05-22 00:00:00 Completed [facility] HIB 4 Dose Schedule 2003-05-22 00:00:00 Completed [facility] MMR 2003-05-22 00:00:00 Completed [facility] Pneumococcal 7 Conjugate, PCV7 (Prevnar7) 2003-05-22 00:00:00 Completed [facility] Varicella (varivax)(chicken pox) 2003-05-22 00:00:00 Completed [facility] HIB 4 Dose Schedule 2003-05-22 00:00:00 Completed [facility] MMR 2003-05-22 00:00:00 Completed [facility] Pneumococcal 7 Conjugate, PCV7 (Prevnar7) 2003-05-22 00:00:00 Completed [facility] Varicella (varivax)(chicken pox) 2003-05-22 00:00:00 Completed [facility] HIB 4 Dose Schedule 2003-05-22 00:00:00 Completed [facility] MMR 2003-05-22 00:00:00 Completed [facility] Pneumococcal 7 Conjugate, PCV7 (Prevnar7) 2003-05-22 00:00:00 Completed [facility] Varicella (varivax)(chicken pox) 2003-05-22 00:00:00 Completed [facility] HIB 4 Dose Schedule 2003-05-22 00:00:00 Completed [facility] MMR 2003-05-22 00:00:00 Completed [facility] Pneumococcal 7 Conjugate, PCV7 (Prevnar7) 2003-05-22 00:00:00 Completed [facility] Varicella (varivax)(chicken pox) 2003-05-22 00:00:00 Completed [facility] HIB 4 Dose Schedule 2003-05-22 00:00:00 Completed [facility] MMR 2003-05-22 00:00:00 Completed [facility] Pneumococcal 7 Conjugate, PCV7 (Prevnar7) 2003-05-22 00:00:00 Completed [facility] Varicella (varivax)(chicken pox) 2003-05-22 00:00:00 Completed [facility] HIB 4 Dose Schedule 2003-05-22 00:00:00 Completed [facility] MMR 2003-05-22 00:00:00 Completed [facility] Pneumococcal 7 Conjugate, PCV7 (Prevnar7) 2003-05-22 00:00:00 Completed [facility] Varicella (varivax)(chicken pox) 2003-05-22 00:00:00 Completed [facility] HIB 4 Dose Schedule 2003-05-22 00:00:00 Completed [facility] MMR 2003-05-22 00:00:00 Completed [facility] Pneumococcal 7 Conjugate, PCV7 (Prevnar7) 2003-05-22 00:00:00 Completed [facility] Varicella (varivax)(chicken pox) 2003-05-22 00:00:00 Completed [facility] HIB 4 Dose Schedule 2003-05-22 00:00:00 Completed [facility] MMR 2003-05-22 00:00:00 Completed [facility] Pneumococcal 7 Conjugate, PCV7 (Prevnar7) 2003-05-22 00:00:00 Completed [facility] Varicella (varivax)(chicken pox) 2003-05-22 00:00:00 Completed [facility] HIB 4 Dose Schedule 2003-05-22 00:00:00 Completed [facility] MMR 2003-05-22 00:00:00 Completed [facility] Pneumococcal 7 Conjugate, PCV7 (Prevnar7) 2003-05-22 00:00:00 Completed [facility] Varicella (varivax)(chicken pox) 2003-05-22 00:00:00 Completed [facility] HIB 4 Dose Schedule 2003-05-22 00:00:00 Completed [facility] MMR 2003-05-22 00:00:00 Completed [facility] Pneumococcal 7 Conjugate, PCV7 (Prevnar7) 2003-05-22 00:00:00 Completed [facility] Varicella (varivax)(chicken pox) 2003-05-22 00:00:00 Completed [facility] HIB 4 Dose Schedule 2003-05-22 00:00:00 Completed [facility] MMR 2003-05-22 00:00:00 Completed [facility] Pneumococcal 7 Conjugate, PCV7 (Prevnar7) 2003-05-22 00:00:00 Completed [facility] Varicella (varivax)(chicken pox) 2003-05-22 00:00:00 Completed [facility] HIB 4 Dose Schedule 2003-05-22 00:00:00 Completed [facility] MMR 2003-05-22 00:00:00 Completed [facility] Pneumococcal 7 Conjugate, PCV7 (Prevnar7) 2003-05-22 00:00:00 Completed [facility] Varicella (varivax)(chicken pox) 2003-05-22 00:00:00 Completed [facility] HIB 4 Dose Schedule 2003-05-22 00:00:00 Completed [facility] MMR 2003-05-22 00:00:00 Completed [facility] Pneumococcal 7 Conjugate, PCV7 (Prevnar7) 2003-05-22 00:00:00 Completed [facility] Varicella (varivax)(chicken pox) 2003-05-22 00:00:00 Completed [facility] HIB 4 Dose Schedule 2003-05-22 00:00:00 Completed [facility] MMR 2003-05-22 00:00:00 Completed [facility] Pneumococcal 7 Conjugate, PCV7 (Prevnar7) 2003-05-22 00:00:00 Completed [facility] Varicella (varivax)(chicken pox) 2003-05-22 00:00:00 Completed [facility] HIB 4 Dose Schedule 2003-05-22 00:00:00 Completed [facility] MMR 2003-05-22 00:00:00 Completed [facility] Pneumococcal 7 Conjugate, PCV7 (Prevnar7) 2003-05-22 00:00:00 Completed [facility] Varicella (varivax)(chicken pox) 2003-05-22 00:00:00 Completed [facility] HIB 4 Dose Schedule 2003-05-22 00:00:00 Completed [facility] MMR 2003-05-22 00:00:00 Completed [facility] Pneumococcal 7 Conjugate, PCV7 (Prevnar7) 2003-05-22 00:00:00 Completed [facility] Varicella (varivax)(chicken pox) 2003-05-22 00:00:00 Completed [facility] HIB 4 Dose Schedule 2003-05-22 00:00:00 Completed [facility] MMR 2003-05-22 00:00:00 Completed [facility] Pneumococcal 7 Conjugate, PCV7 (Prevnar7) 2003-05-22 00:00:00 Completed [facility] Varicella (varivax)(chicken pox) 2003-05-22 00:00:00 Completed [facility] HIB 4 Dose Schedule 2003-05-22 00:00:00 Completed [facility] MMR 2003-05-22 00:00:00 Completed [facility] Pneumococcal 7 Conjugate, PCV7 (Prevnar7) 2003-05-22 00:00:00 Completed [facility] Varicella (varivax)(chicken pox) 2003-05-22 00:00:00 Completed [facility] HIB 4 Dose Schedule 2003-05-22 00:00:00 Completed [facility] MMR 2003-05-22 00:00:00 Completed [facility] Pneumococcal 7 Conjugate, PCV7 (Prevnar7) 2003-05-22 00:00:00 Completed [facility] Varicella (varivax)(chicken pox) 2003-05-22 00:00:00 Completed [facility] HIB 4 Dose Schedule 2003-05-22 00:00:00 Completed [facility] MMR 2003-05-22 00:00:00 Completed [facility] Pneumococcal 7 Conjugate, PCV7 (Prevnar7) 2003-05-22 00:00:00 Completed [facility] Varicella (varivax)(chicken pox) 2003-05-22 00:00:00 Completed [facility] HIB 4 Dose Schedule 2003-05-22 00:00:00 Completed [facility] MMR 2003-05-22 00:00:00 Completed [facility] Pneumococcal 7 Conjugate, PCV7 (Prevnar7) 2003-05-22 00:00:00 Completed [facility] Varicella (varivax)(chicken pox) 2003-05-22 00:00:00 Completed [facility] HIB 4 Dose Schedule 2003-05-22 00:00:00 Completed [facility] MMR 2003-05-22 00:00:00 Completed [facility] Pneumococcal 7 Conjugate, PCV7 (Prevnar7) 2003-05-22 00:00:00 Completed [facility] Varicella (varivax)(chicken pox) 2003-05-22 00:00:00 Completed [facility] HIB 4 Dose Schedule 2003-05-22 00:00:00 Completed [facility] MMR 2003-05-22 00:00:00 Completed [facility] Pneumococcal 7 Conjugate, PCV7 (Prevnar7) 2003-05-22 00:00:00 Completed [facility] Varicella (varivax)(chicken pox) 2003-05-22 00:00:00 Completed [facility] HIB 4 Dose Schedule 2003-05-22 00:00:00 Completed [facility] MMR 2003-05-22 00:00:00 Completed [facility] Pneumococcal 7 Conjugate, PCV7 (Prevnar7) 2003-05-22 00:00:00 Completed [facility] Varicella (varivax)(chicken pox) 2003-05-22 00:00:00 Completed [facility] HIB 4 Dose Schedule 2003-05-22 00:00:00 Completed [facility] MMR 2003-05-22 00:00:00 Completed [facility] Pneumococcal 7 Conjugate, PCV7 (Prevnar7) 2003-05-22 00:00:00 Completed [facility] Varicella (varivax)(chicken pox) 2003-05-22 00:00:00 Completed [facility] HIB 4 Dose Schedule 2003-05-22 00:00:00 Completed [facility] MMR 2003-05-22 00:00:00 Completed [facility] Pneumococcal 7 Conjugate, PCV7 (Prevnar7) 2003-05-22 00:00:00 Completed [facility] Varicella (varivax)(chicken pox) 2003-05-22 00:00:00 Completed [facility] DTAP 2003-01-01 00:00:00 Completed [facility] HIB 4 Dose Schedule 2003-01-01 00:00:00 Completed [facility] Hep B, Adol or Pedi Dosage 2003-01-01 00:00:00 Completed [facility] Pneumococcal 7 Conjugate, PCV7 (Prevnar7) 2003-01-01 00:00:00 Completed [facility] DTAP 2003-01-01 00:00:00 Completed [facility] HIB 4 Dose Schedule 2003-01-01 00:00:00 Completed [facility] Hep B, Adol or Pedi Dosage 2003-01-01 00:00:00 Completed [facility] Pneumococcal 7 Conjugate, PCV7 (Prevnar7) 2003-01-01 00:00:00 Completed [facility] DTAP 2003-01-01 00:00:00 Completed [facility] HIB 4 Dose Schedule 2003-01-01 00:00:00 Completed [facility] Hep B, Adol or Pedi Dosage 2003-01-01 00:00:00 Completed [facility] Pneumococcal 7 Conjugate, PCV7 (Prevnar7) 2003-01-01 00:00:00 Completed [facility] DTAP 2003-01-01 00:00:00 Completed [facility] HIB 4 Dose Schedule 2003-01-01 00:00:00 Completed [facility] Hep B, Adol or Pedi Dosage 2003-01-01 00:00:00 Completed [facility] Pneumococcal 7 Conjugate, PCV7 (Prevnar7) 2003-01-01 00:00:00 Completed [facility] DTAP 2003-01-01 00:00:00 Completed [facility] HIB 4 Dose Schedule 2003-01-01 00:00:00 Completed [facility] Hep B, Adol or Pedi Dosage 2003-01-01 00:00:00 Completed [facility] Pneumococcal 7 Conjugate, PCV7 (Prevnar7) 2003-01-01 00:00:00 Completed [facility] DTAP 2003-01-01 00:00:00 Completed [facility] HIB 4 Dose Schedule 2003-01-01 00:00:00 Completed [facility] Hep B, Adol or Pedi Dosage 2003-01-01 00:00:00 Completed [facility] Pneumococcal 7 Conjugate, PCV7 (Prevnar7) 2003-01-01 00:00:00 Completed [facility] DTAP 2003-01-01 00:00:00 Completed [facility] HIB 4 Dose Schedule 2003-01-01 00:00:00 Completed [facility] Hep B, Adol or Pedi Dosage 2003-01-01 00:00:00 Completed [facility] Pneumococcal 7 Conjugate, PCV7 (Prevnar7) 2003-01-01 00:00:00 Completed [facility] DTAP 2003-01-01 00:00:00 Completed [facility] HIB 4 Dose Schedule 2003-01-01 00:00:00 Completed [facility] Hep B, Adol or Pedi Dosage 2003-01-01 00:00:00 Completed [facility] Pneumococcal 7 Conjugate, PCV7 (Prevnar7) 2003-01-01 00:00:00 Completed [facility] DTAP 2003-01-01 00:00:00 Completed [facility] HIB 4 Dose Schedule 2003-01-01 00:00:00 Completed [facility] Hep B, Adol or Pedi Dosage 2003-01-01 00:00:00 Completed [facility] Pneumococcal 7 Conjugate, PCV7 (Prevnar7) 2003-01-01 00:00:00 Completed [facility] DTAP 2003-01-01 00:00:00 Completed [facility] HIB 4 Dose Schedule 2003-01-01 00:00:00 Completed [facility] Hep B, Adol or Pedi Dosage 2003-01-01 00:00:00 Completed [facility] Pneumococcal 7 Conjugate, PCV7 (Prevnar7) 2003-01-01 00:00:00 Completed [facility] DTAP 2003-01-01 00:00:00 Completed [facility] HIB 4 Dose Schedule 2003-01-01 00:00:00 Completed [facility] Hep B, Adol or Pedi Dosage 2003-01-01 00:00:00 Completed [facility] Pneumococcal 7 Conjugate, PCV7 (Prevnar7) 2003-01-01 00:00:00 Completed [facility] DTAP 2003-01-01 00:00:00 Completed [facility] HIB 4 Dose Schedule 2003-01-01 00:00:00 Completed [facility] Hep B, Adol or Pedi Dosage 2003-01-01 00:00:00 Completed [facility] Pneumococcal 7 Conjugate, PCV7 (Prevnar7) 2003-01-01 00:00:00 Completed [facility] DTAP 2003-01-01 00:00:00 Completed [facility] HIB 4 Dose Schedule 2003-01-01 00:00:00 Completed [facility] Hep B, Adol or Pedi Dosage 2003-01-01 00:00:00 Completed [facility] Pneumococcal 7 Conjugate, PCV7 (Prevnar7) 2003-01-01 00:00:00 Completed [facility] DTAP 2003-01-01 00:00:00 Completed [facility] HIB 4 Dose Schedule 2003-01-01 00:00:00 Completed [facility] Hep B, Adol or Pedi Dosage 2003-01-01 00:00:00 Completed [facility] Pneumococcal 7 Conjugate, PCV7 (Prevnar7) 2003-01-01 00:00:00 Completed [facility] DTAP 2003-01-01 00:00:00 Completed [facility] HIB 4 Dose Schedule 2003-01-01 00:00:00 Completed [facility] Hep B, Adol or Pedi Dosage 2003-01-01 00:00:00 Completed [facility] Pneumococcal 7 Conjugate, PCV7 (Prevnar7) 2003-01-01 00:00:00 Completed [facility] DTAP 2003-01-01 00:00:00 Completed [facility] HIB 4 Dose Schedule 2003-01-01 00:00:00 Completed [facility] Hep B, Adol or Pedi Dosage 2003-01-01 00:00:00 Completed [facility] Pneumococcal 7 Conjugate, PCV7 (Prevnar7) 2003-01-01 00:00:00 Completed [facility] DTAP 2003-01-01 00:00:00 Completed [facility] HIB 4 Dose Schedule 2003-01-01 00:00:00 Completed [facility] Hep B, Adol or Pedi Dosage 2003-01-01 00:00:00 Completed [facility] Pneumococcal 7 Conjugate, PCV7 (Prevnar7) 2003-01-01 00:00:00 Completed [facility] DTAP 2003-01-01 00:00:00 Completed [facility] HIB 4 Dose Schedule 2003-01-01 00:00:00 Completed [facility] Hep B, Adol or Pedi Dosage 2003-01-01 00:00:00 Completed [facility] Pneumococcal 7 Conjugate, PCV7 (Prevnar7) 2003-01-01 00:00:00 Completed [facility] DTAP 2003-01-01 00:00:00 Completed [facility] HIB 4 Dose Schedule 2003-01-01 00:00:00 Completed [facility] Hep B, Adol or Pedi Dosage 2003-01-01 00:00:00 Completed [facility] Pneumococcal 7 Conjugate, PCV7 (Prevnar7) 2003-01-01 00:00:00 Completed [facility] DTAP 2003-01-01 00:00:00 Completed [facility] HIB 4 Dose Schedule 2003-01-01 00:00:00 Completed [facility] Hep B, Adol or Pedi Dosage 2003-01-01 00:00:00 Completed [facility] Pneumococcal 7 Conjugate, PCV7 (Prevnar7) 2003-01-01 00:00:00 Completed [facility] DTAP 2003-01-01 00:00:00 Completed [facility] HIB 4 Dose Schedule 2003-01-01 00:00:00 Completed [facility] Hep B, Adol or Pedi Dosage 2003-01-01 00:00:00 Completed [facility] Pneumococcal 7 Conjugate, PCV7 (Prevnar7) 2003-01-01 00:00:00 Completed [facility] DTAP 2003-01-01 00:00:00 Completed [facility] HIB 4 Dose Schedule 2003-01-01 00:00:00 Completed [facility] Hep B, Adol or Pedi Dosage 2003-01-01 00:00:00 Completed [facility] Pneumococcal 7 Conjugate, PCV7 (Prevnar7) 2003-01-01 00:00:00 Completed [facility] DTAP 2003-01-01 00:00:00 Completed [facility] HIB 4 Dose Schedule 2003-01-01 00:00:00 Completed [facility] Hep B, Adol or Pedi Dosage 2003-01-01 00:00:00 Completed [facility] Pneumococcal 7 Conjugate, PCV7 (Prevnar7) 2003-01-01 00:00:00 Completed [facility] DTAP 2003-01-01 00:00:00 Completed [facility] HIB 4 Dose Schedule 2003-01-01 00:00:00 Completed [facility] Hep B, Adol or Pedi Dosage 2003-01-01 00:00:00 Completed [facility] Pneumococcal 7 Conjugate, PCV7 (Prevnar7) 2003-01-01 00:00:00 Completed [facility] DTAP 2003-01-01 00:00:00 Completed [facility] HIB 4 Dose Schedule 2003-01-01 00:00:00 Completed [facility] Hep B, Adol or Pedi Dosage 2003-01-01 00:00:00 Completed [facility] Pneumococcal 7 Conjugate, PCV7 (Prevnar7) 2003-01-01 00:00:00 Completed [facility] DTAP 2003-01-01 00:00:00 Completed [facility] HIB 4 Dose Schedule 2003-01-01 00:00:00 Completed [facility] Hep B, Adol or Pedi Dosage 2003-01-01 00:00:00 Completed [facility] Pneumococcal 7 Conjugate, PCV7 (Prevnar7) 2003-01-01 00:00:00 Completed [facility] DTAP 2003-01-01 00:00:00 Completed [facility] HIB 4 Dose Schedule 2003-01-01 00:00:00 Completed [facility] Hep B, Adol or Pedi Dosage 2003-01-01 00:00:00 Completed [facility] Pneumococcal 7 Conjugate, PCV7 (Prevnar7) 2003-01-01 00:00:00 Completed [facility] DTAP 2003-01-01 00:00:00 Completed [facility] HIB 4 Dose Schedule 2003-01-01 00:00:00 Completed [facility] Hep B, Adol or Pedi Dosage 2003-01-01 00:00:00 Completed [facility] Pneumococcal 7 Conjugate, PCV7 (Prevnar7) 2003-01-01 00:00:00 Completed [facility] DTAP 2003-01-01 00:00:00 Completed [facility] HIB 4 Dose Schedule 2003-01-01 00:00:00 Completed [facility] Hep B, Adol or Pedi Dosage 2003-01-01 00:00:00 Completed [facility] Pneumococcal 7 Conjugate, PCV7 (Prevnar7) 2003-01-01 00:00:00 Completed [facility] DTAP 2003-01-01 00:00:00 Completed [facility] HIB 4 Dose Schedule 2003-01-01 00:00:00 Completed [facility] Hep B, Adol or Pedi Dosage 2003-01-01 00:00:00 Completed [facility] Pneumococcal 7 Conjugate, PCV7 (Prevnar7) 2003-01-01 00:00:00 Completed [facility] DTAP 2003-01-01 00:00:00 Completed [facility] HIB 4 Dose Schedule 2003-01-01 00:00:00 Completed [facility] Hep B, Adol or Pedi Dosage 2003-01-01 00:00:00 Completed [facility] Pneumococcal 7 Conjugate, PCV7 (Prevnar7) 2003-01-01 00:00:00 Completed [facility] DTAP 2003-01-01 00:00:00 Completed [facility] HIB 4 Dose Schedule 2003-01-01 00:00:00 Completed [facility] Hep B, Adol or Pedi Dosage 2003-01-01 00:00:00 Completed [facility] Pneumococcal 7 Conjugate, PCV7 (Prevnar7) 2003-01-01 00:00:00 Completed [facility] DTAP 2003-01-01 00:00:00 Completed [facility] HIB 4 Dose Schedule 2003-01-01 00:00:00 Completed [facility] Hep B, Adol or Pedi Dosage 2003-01-01 00:00:00 Completed [facility] Pneumococcal 7 Conjugate, PCV7 (Prevnar7) 2003-01-01 00:00:00 Completed [facility] DTAP 2003-01-01 00:00:00 Completed [facility] HIB 4 Dose Schedule 2003-01-01 00:00:00 Completed [facility] Hep B, Adol or Pedi Dosage 2003-01-01 00:00:00 Completed [facility] Pneumococcal 7 Conjugate, PCV7 (Prevnar7) 2003-01-01 00:00:00 Completed [facility] DTAP 2003-01-01 00:00:00 Completed [facility] HIB 4 Dose Schedule 2003-01-01 00:00:00 Completed [facility] Hep B, Adol or Pedi Dosage 2003-01-01 00:00:00 Completed [facility] Pneumococcal 7 Conjugate, PCV7 (Prevnar7) 2003-01-01 00:00:00 Completed [facility] DTAP 2003-01-01 00:00:00 Completed [facility] HIB 4 Dose Schedule 2003-01-01 00:00:00 Completed [facility] Hep B, Adol or Pedi Dosage 2003-01-01 00:00:00 Completed [facility] Pneumococcal 7 Conjugate, PCV7 (Prevnar7) 2003-01-01 00:00:00 Completed [facility] DTAP 2003-01-01 00:00:00 Completed [facility] HIB 4 Dose Schedule 2003-01-01 00:00:00 Completed [facility] Hep B, Adol or Pedi Dosage 2003-01-01 00:00:00 Completed [facility] Pneumococcal 7 Conjugate, PCV7 (Prevnar7) 2003-01-01 00:00:00 Completed [facility] DTAP 2003-01-01 00:00:00 Completed [facility] HIB 4 Dose Schedule 2003-01-01 00:00:00 Completed [facility] Hep B, Adol or Pedi Dosage 2003-01-01 00:00:00 Completed [facility] Pneumococcal 7 Conjugate, PCV7 (Prevnar7) 2003-01-01 00:00:00 Completed [facility] DTAP 2003-01-01 00:00:00 Completed [facility] HIB 4 Dose Schedule 2003-01-01 00:00:00 Completed [facility] Hep B, Adol or Pedi Dosage 2003-01-01 00:00:00 Completed [facility] Pneumococcal 7 Conjugate, PCV7 (Prevnar7) 2003-01-01 00:00:00 Completed [facility] DTAP 2003-01-01 00:00:00 Completed [facility] HIB 4 Dose Schedule 2003-01-01 00:00:00 Completed [facility] Hep B, Adol or Pedi Dosage 2003-01-01 00:00:00 Completed [facility] Pneumococcal 7 Conjugate, PCV7 (Prevnar7) 2003-01-01 00:00:00 Completed [facility] DTAP 2003-01-01 00:00:00 Completed [facility] HIB 4 Dose Schedule 2003-01-01 00:00:00 Completed [facility] Hep B, Adol or Pedi Dosage 2003-01-01 00:00:00 Completed [facility] Pneumococcal 7 Conjugate, PCV7 (Prevnar7) 2003-01-01 00:00:00 Completed [facility] DTAP 2003-01-01 00:00:00 Completed [facility] HIB 4 Dose Schedule 2003-01-01 00:00:00 Completed [facility] Hep B, Adol or Pedi Dosage 2003-01-01 00:00:00 Completed [facility] Pneumococcal 7 Conjugate, PCV7 (Prevnar7) 2003-01-01 00:00:00 Completed [facility] DTAP 2003-01-01 00:00:00 Completed [facility] HIB 4 Dose Schedule 2003-01-01 00:00:00 Completed [facility] Hep B, Adol or Pedi Dosage 2003-01-01 00:00:00 Completed [facility] Pneumococcal 7 Conjugate, PCV7 (Prevnar7) 2003-01-01 00:00:00 Completed [facility] DTAP 2003-01-01 00:00:00 Completed [facility] HIB 4 Dose Schedule 2003-01-01 00:00:00 Completed [facility] Hep B, Adol or Pedi Dosage 2003-01-01 00:00:00 Completed [facility] Pneumococcal 7 Conjugate, PCV7 (Prevnar7) 2003-01-01 00:00:00 Completed [facility] DTAP 2003-01-01 00:00:00 Completed [facility] HIB 4 Dose Schedule 2003-01-01 00:00:00 Completed [facility] Hep B, Adol or Pedi Dosage 2003-01-01 00:00:00 Completed [facility] Pneumococcal 7 Conjugate, PCV7 (Prevnar7) 2003-01-01 00:00:00 Completed [facility] DTAP 2003-01-01 00:00:00 Completed [facility] HIB 4 Dose Schedule 2003-01-01 00:00:00 Completed [facility] Hep B, Adol or Pedi Dosage 2003-01-01 00:00:00 Completed [facility] Pneumococcal 7 Conjugate, PCV7 (Prevnar7) 2003-01-01 00:00:00 Completed [facility] DTAP 2003-01-01 00:00:00 Completed [facility] HIB 4 Dose Schedule 2003-01-01 00:00:00 Completed [facility] Hep B, Adol or Pedi Dosage 2003-01-01 00:00:00 Completed [facility] Pneumococcal 7 Conjugate, PCV7 (Prevnar7) 2003-01-01 00:00:00 Completed [facility] DTAP 2003-01-01 00:00:00 Completed [facility] HIB 4 Dose Schedule 2003-01-01 00:00:00 Completed [facility] Hep B, Adol or Pedi Dosage 2003-01-01 00:00:00 Completed [facility] Pneumococcal 7 Conjugate, PCV7 (Prevnar7) 2003-01-01 00:00:00 Completed [facility] DTAP 2003-01-01 00:00:00 Completed [facility] HIB 4 Dose Schedule 2003-01-01 00:00:00 Completed [facility] Hep B, Adol or Pedi Dosage 2003-01-01 00:00:00 Completed [facility] Pneumococcal 7 Conjugate, PCV7 (Prevnar7) 2003-01-01 00:00:00 Completed [facility] DTAP 2003-01-01 00:00:00 Completed [facility] HIB 4 Dose Schedule 2003-01-01 00:00:00 Completed [facility] Hep B, Adol or Pedi Dosage 2003-01-01 00:00:00 Completed [facility] Pneumococcal 7 Conjugate, PCV7 (Prevnar7) 2003-01-01 00:00:00 Completed [facility] DTAP 2003-01-01 00:00:00 Completed [facility] HIB 4 Dose Schedule 2003-01-01 00:00:00 Completed [facility] Hep B, Adol or Pedi Dosage 2003-01-01 00:00:00 Completed [facility] Pneumococcal 7 Conjugate, PCV7 (Prevnar7) 2003-01-01 00:00:00 Completed [facility] DTAP 2003-01-01 00:00:00 Completed [facility] HIB 4 Dose Schedule 2003-01-01 00:00:00 Completed [facility] Hep B, Adol or Pedi Dosage 2003-01-01 00:00:00 Completed [facility] Pneumococcal 7 Conjugate, PCV7 (Prevnar7) 2003-01-01 00:00:00 Completed [facility] DTAP 2003-01-01 00:00:00 Completed [facility] HIB 4 Dose Schedule 2003-01-01 00:00:00 Completed [facility] Hep B, Adol or Pedi Dosage 2003-01-01 00:00:00 Completed [facility] Pneumococcal 7 Conjugate, PCV7 (Prevnar7) 2003-01-01 00:00:00 Completed [facility] DTAP 2003-01-01 00:00:00 Completed [facility] HIB 4 Dose Schedule 2003-01-01 00:00:00 Completed [facility] Hep B, Adol or Pedi Dosage 2003-01-01 00:00:00 Completed [facility] Pneumococcal 7 Conjugate, PCV7 (Prevnar7) 2003-01-01 00:00:00 Completed [facility] DTAP 2003-01-01 00:00:00 Completed [facility] HIB 4 Dose Schedule 2003-01-01 00:00:00 Completed [facility] Hep B, Adol or Pedi Dosage 2003-01-01 00:00:00 Completed [facility] Pneumococcal 7 Conjugate, PCV7 (Prevnar7) 2003-01-01 00:00:00 Completed [facility] DTAP 2003-01-01 00:00:00 Completed [facility] HIB 4 Dose Schedule 2003-01-01 00:00:00 Completed [facility] Hep B, Adol or Pedi Dosage 2003-01-01 00:00:00 Completed [facility] Pneumococcal 7 Conjugate, PCV7 (Prevnar7) 2003-01-01 00:00:00 Completed [facility] DTAP 2003-01-01 00:00:00 Completed [facility] HIB 4 Dose Schedule 2003-01-01 00:00:00 Completed [facility] Hep B, Adol or Pedi Dosage 2003-01-01 00:00:00 Completed [facility] Pneumococcal 7 Conjugate, PCV7 (Prevnar7) 2003-01-01 00:00:00 Completed [facility] DTAP 2003-01-01 00:00:00 Completed [facility] HIB 4 Dose Schedule 2003-01-01 00:00:00 Completed [facility] Hep B, Adol or Pedi Dosage 2003-01-01 00:00:00 Completed [facility] Pneumococcal 7 Conjugate, PCV7 (Prevnar7) 2003-01-01 00:00:00 Completed [facility] DTAP 2003-01-01 00:00:00 Completed [facility] HIB 4 Dose Schedule 2003-01-01 00:00:00 Completed [facility] Hep B, Adol or Pedi Dosage 2003-01-01 00:00:00 Completed [facility] Pneumococcal 7 Conjugate, PCV7 (Prevnar7) 2003-01-01 00:00:00 Completed [facility] DTAP 2003-01-01 00:00:00 Completed [facility] HIB 4 Dose Schedule 2003-01-01 00:00:00 Completed [facility] Hep B, Adol or Pedi Dosage 2003-01-01 00:00:00 Completed [facility] Pneumococcal 7 Conjugate, PCV7 (Prevnar7) 2003-01-01 00:00:00 Completed [facility] DTAP 2003-01-01 00:00:00 Completed [facility] HIB 4 Dose Schedule 2003-01-01 00:00:00 Completed [facility] Hep B, Adol or Pedi Dosage 2003-01-01 00:00:00 Completed [facility] Pneumococcal 7 Conjugate, PCV7 (Prevnar7) 2003-01-01 00:00:00 Completed [facility] DTAP 2003-01-01 00:00:00 Completed [facility] HIB 4 Dose Schedule 2003-01-01 00:00:00 Completed [facility] Hep B, Adol or Pedi Dosage 2003-01-01 00:00:00 Completed [facility] Pneumococcal 7 Conjugate, PCV7 (Prevnar7) 2003-01-01 00:00:00 Completed [facility] DTAP 2003-01-01 00:00:00 Completed [facility] HIB 4 Dose Schedule 2003-01-01 00:00:00 Completed [facility] Hep B, Adol or Pedi Dosage 2003-01-01 00:00:00 Completed [facility] Pneumococcal 7 Conjugate, PCV7 (Prevnar7) 2003-01-01 00:00:00 Completed [facility] DTAP 2003-01-01 00:00:00 Completed [facility] HIB 4 Dose Schedule 2003-01-01 00:00:00 Completed [facility] Hep B, Adol or Pedi Dosage 2003-01-01 00:00:00 Completed [facility] Pneumococcal 7 Conjugate, PCV7 (Prevnar7) 2003-01-01 00:00:00 Completed [facility] DTAP 2003-01-01 00:00:00 Completed [facility] HIB 4 Dose Schedule 2003-01-01 00:00:00 Completed [facility] Hep B, Adol or Pedi Dosage 2003-01-01 00:00:00 Completed [facility] Pneumococcal 7 Conjugate, PCV7 (Prevnar7) 2003-01-01 00:00:00 Completed [facility] DTAP 2003-01-01 00:00:00 Completed [facility] HIB 4 Dose Schedule 2003-01-01 00:00:00 Completed [facility] Hep B, Adol or Pedi Dosage 2003-01-01 00:00:00 Completed [facility] Pneumococcal 7 Conjugate, PCV7 (Prevnar7) 2003-01-01 00:00:00 Completed [facility] DTAP 2003-01-01 00:00:00 Completed [facility] HIB 4 Dose Schedule 2003-01-01 00:00:00 Completed [facility] Hep B, Adol or Pedi Dosage 2003-01-01 00:00:00 Completed [facility] Pneumococcal 7 Conjugate, PCV7 (Prevnar7) 2003-01-01 00:00:00 Completed [facility] DTAP 2003-01-01 00:00:00 Completed [facility] HIB 4 Dose Schedule 2003-01-01 00:00:00 Completed [facility] Hep B, Adol or Pedi Dosage 2003-01-01 00:00:00 Completed [facility] Pneumococcal 7 Conjugate, PCV7 (Prevnar7) 2003-01-01 00:00:00 Completed [facility] DTAP 2003-01-01 00:00:00 Completed [facility] HIB 4 Dose Schedule 2003-01-01 00:00:00 Completed [facility] Hep B, Adol or Pedi Dosage 2003-01-01 00:00:00 Completed [facility] Pneumococcal 7 Conjugate, PCV7 (Prevnar7) 2003-01-01 00:00:00 Completed [facility] DTAP 2003-01-01 00:00:00 Completed [facility] HIB 4 Dose Schedule 2003-01-01 00:00:00 Completed [facility] Hep B, Adol or Pedi Dosage 2003-01-01 00:00:00 Completed [facility] Pneumococcal 7 Conjugate, PCV7 (Prevnar7) 2003-01-01 00:00:00 Completed [facility] DTAP 2003-01-01 00:00:00 Completed [facility] HIB 4 Dose Schedule 2003-01-01 00:00:00 Completed [facility] Hep B, Adol or Pedi Dosage 2003-01-01 00:00:00 Completed [facility] Pneumococcal 7 Conjugate, PCV7 (Prevnar7) 2003-01-01 00:00:00 Completed [facility] DTAP 2003-01-01 00:00:00 Completed [facility] HIB 4 Dose Schedule 2003-01-01 00:00:00 Completed [facility] Hep B, Adol or Pedi Dosage 2003-01-01 00:00:00 Completed [facility] Pneumococcal 7 Conjugate, PCV7 (Prevnar7) 2003-01-01 00:00:00 Completed [facility] DTAP 2003-01-01 00:00:00 Completed [facility] HIB 4 Dose Schedule 2003-01-01 00:00:00 Completed [facility] Hep B, Adol or Pedi Dosage 2003-01-01 00:00:00 Completed [facility] Pneumococcal 7 Conjugate, PCV7 (Prevnar7) 2003-01-01 00:00:00 Completed [facility] DTAP 2003-01-01 00:00:00 Completed [facility] HIB 4 Dose Schedule 2003-01-01 00:00:00 Completed [facility] Hep B, Adol or Pedi Dosage 2003-01-01 00:00:00 Completed [facility] Pneumococcal 7 Conjugate, PCV7 (Prevnar7) 2003-01-01 00:00:00 Completed [facility] DTAP 2003-01-01 00:00:00 Completed [facility] HIB 4 Dose Schedule 2003-01-01 00:00:00 Completed [facility] Hep B, Adol or Pedi Dosage 2003-01-01 00:00:00 Completed [facility] Pneumococcal 7 Conjugate, PCV7 (Prevnar7) 2003-01-01 00:00:00 Completed [facility] DTAP 2003-01-01 00:00:00 Completed [facility] HIB 4 Dose Schedule 2003-01-01 00:00:00 Completed [facility] Hep B, Adol or Pedi Dosage 2003-01-01 00:00:00 Completed [facility] Pneumococcal 7 Conjugate, PCV7 (Prevnar7) 2003-01-01 00:00:00 Completed [facility] DTAP 2003-01-01 00:00:00 Completed [facility] HIB 4 Dose Schedule 2003-01-01 00:00:00 Completed [facility] Hep B, Adol or Pedi Dosage 2003-01-01 00:00:00 Completed [facility] Pneumococcal 7 Conjugate, PCV7 (Prevnar7) 2003-01-01 00:00:00 Completed [facility] DTAP 2002 00:00:00 Completed [facility] HIB 4 Dose Schedule 2002 00:00:00 Completed [facility] Pneumococcal 7 Conjugate, PCV7 (Prevnar7) 2002 00:00:00 Completed [facility] Polio (IPV/OPV) 2002 00:00:00 Completed [facility] DTAP 2002 00:00:00 Completed [facility] HIB 4 Dose Schedule 2002 00:00:00 Completed [facility] Pneumococcal 7 Conjugate, PCV7 (Prevnar7) 2002 00:00:00 Completed [facility] Polio (IPV/OPV) 2002 00:00:00 Completed [facility] DTAP 2002 00:00:00 Completed [facility] HIB 4 Dose Schedule 2002 00:00:00 Completed [facility] Pneumococcal 7 Conjugate, PCV7 (Prevnar7) 2002 00:00:00 Completed [facility] Polio (IPV/OPV) 2002 00:00:00 Completed [facility] DTAP 2002 00:00:00 Completed [facility] HIB 4 Dose Schedule 2002 00:00:00 Completed [facility] Pneumococcal 7 Conjugate, PCV7 (Prevnar7) 2002 00:00:00 Completed [facility] Polio (IPV/OPV) 2002 00:00:00 Completed [facility] DTAP 2002 00:00:00 Completed [facility] HIB 4 Dose Schedule 2002 00:00:00 Completed [facility] Pneumococcal 7 Conjugate, PCV7 (Prevnar7) 2002 00:00:00 Completed [facility] Polio (IPV/OPV) 2002 00:00:00 Completed [facility] DTAP 2002 00:00:00 Completed [facility] HIB 4 Dose Schedule 2002 00:00:00 Completed [facility] Pneumococcal 7 Conjugate, PCV7 (Prevnar7) 2002 00:00:00 Completed [facility] Polio (IPV/OPV) 2002 00:00:00 Completed [facility] DTAP 2002 00:00:00 Completed [facility] HIB 4 Dose Schedule 2002 00:00:00 Completed [facility] Pneumococcal 7 Conjugate, PCV7 (Prevnar7) 2002 00:00:00 Completed [facility] Polio (IPV/OPV) 2002 00:00:00 Completed [facility] DTAP 2002 00:00:00 Completed [facility] HIB 4 Dose Schedule 2002 00:00:00 Completed [facility] Pneumococcal 7 Conjugate, PCV7 (Prevnar7) 2002 00:00:00 Completed [facility] Polio (IPV/OPV) 2002 00:00:00 Completed [facility] DTAP 2002 00:00:00 Completed [facility] HIB 4 Dose Schedule 2002 00:00:00 Completed [facility] Pneumococcal 7 Conjugate, PCV7 (Prevnar7) 2002 00:00:00 Completed [facility] Polio (IPV/OPV) 2002 00:00:00 Completed [facility] DTAP 2002 00:00:00 Completed [facility] HIB 4 Dose Schedule 2002 00:00:00 Completed [facility] Pneumococcal 7 Conjugate, PCV7 (Prevnar7) 2002 00:00:00 Completed [facility] Polio (IPV/OPV) 2002 00:00:00 Completed [facility] DTAP 2002 00:00:00 Completed [facility] HIB 4 Dose Schedule 2002 00:00:00 Completed [facility] Pneumococcal 7 Conjugate, PCV7 (Prevnar7) 2002 00:00:00 Completed [facility] Polio (IPV/OPV) 2002 00:00:00 Completed [facility] DTAP 2002 00:00:00 Completed [facility] HIB 4 Dose Schedule 2002 00:00:00 Completed [facility] Pneumococcal 7 Conjugate, PCV7 (Prevnar7) 2002 00:00:00 Completed [facility] Polio (IPV/OPV) 2002 00:00:00 Completed [facility] DTAP 2002 00:00:00 Completed [facility] HIB 4 Dose Schedule 2002 00:00:00 Completed [facility] Pneumococcal 7 Conjugate, PCV7 (Prevnar7) 2002 00:00:00 Completed [facility] Polio (IPV/OPV) 2002 00:00:00 Completed [facility] DTAP 2002 00:00:00 Completed [facility] HIB 4 Dose Schedule 2002 00:00:00 Completed [facility] Pneumococcal 7 Conjugate, PCV7 (Prevnar7) 2002 00:00:00 Completed [facility] Polio (IPV/OPV) 2002 00:00:00 Completed [facility] DTAP 2002 00:00:00 Completed [facility] HIB 4 Dose Schedule 2002 00:00:00 Completed [facility] Pneumococcal 7 Conjugate, PCV7 (Prevnar7) 2002 00:00:00 Completed [facility] Polio (IPV/OPV) 2002 00:00:00 Completed [facility] DTAP 2002 00:00:00 Completed [facility] HIB 4 Dose Schedule 2002 00:00:00 Completed [facility] Pneumococcal 7 Conjugate, PCV7 (Prevnar7) 2002 00:00:00 Completed [facility] Polio (IPV/OPV) 2002 00:00:00 Completed [facility] DTAP 2002 00:00:00 Completed [facility] HIB 4 Dose Schedule 2002 00:00:00 Completed [facility] Pneumococcal 7 Conjugate, PCV7 (Prevnar7) 2002 00:00:00 Completed [facility] Polio (IPV/OPV) 2002 00:00:00 Completed [facility] DTAP 2002 00:00:00 Completed [facility] HIB 4 Dose Schedule 2002 00:00:00 Completed [facility] Pneumococcal 7 Conjugate, PCV7 (Prevnar7) 2002 00:00:00 Completed [facility] Polio (IPV/OPV) 2002 00:00:00 Completed [facility] DTAP 2002 00:00:00 Completed [facility] HIB 4 Dose Schedule 2002 00:00:00 Completed [facility] Pneumococcal 7 Conjugate, PCV7 (Prevnar7) 2002 00:00:00 Completed [facility] Polio (IPV/OPV) 2002 00:00:00 Completed [facility] DTAP 2002 00:00:00 Completed [facility] HIB 4 Dose Schedule 2002 00:00:00 Completed [facility] Pneumococcal 7 Conjugate, PCV7 (Prevnar7) 2002 00:00:00 Completed [facility] Polio (IPV/OPV) 2002 00:00:00 Completed [facility] DTAP 2002 00:00:00 Completed [facility] HIB 4 Dose Schedule 2002 00:00:00 Completed [facility] Pneumococcal 7 Conjugate, PCV7 (Prevnar7) 2002 00:00:00 Completed [facility] Polio (IPV/OPV) 2002 00:00:00 Completed [facility] DTAP 2002 00:00:00 Completed [facility] HIB 4 Dose Schedule 2002 00:00:00 Completed [facility] Pneumococcal 7 Conjugate, PCV7 (Prevnar7) 2002 00:00:00 Completed [facility] Polio (IPV/OPV) 2002 00:00:00 Completed [facility] DTAP 2002 00:00:00 Completed [facility] HIB 4 Dose Schedule 2002 00:00:00 Completed [facility] Pneumococcal 7 Conjugate, PCV7 (Prevnar7) 2002 00:00:00 Completed [facility] Polio (IPV/OPV) 2002 00:00:00 Completed [facility] DTAP 2002 00:00:00 Completed [facility] HIB 4 Dose Schedule 2002 00:00:00 Completed [facility] Pneumococcal 7 Conjugate, PCV7 (Prevnar7) 2002 00:00:00 Completed [facility] Polio (IPV/OPV) 2002 00:00:00 Completed [facility] DTAP 2002 00:00:00 Completed [facility] HIB 4 Dose Schedule 2002 00:00:00 Completed [facility] Pneumococcal 7 Conjugate, PCV7 (Prevnar7) 2002 00:00:00 Completed [facility] Polio (IPV/OPV) 2002 00:00:00 Completed [facility] DTAP 2002 00:00:00 Completed [facility] HIB 4 Dose Schedule 2002 00:00:00 Completed [facility] Pneumococcal 7 Conjugate, PCV7 (Prevnar7) 2002 00:00:00 Completed [facility] Polio (IPV/OPV) 2002 00:00:00 Completed [facility] DTAP 2002 00:00:00 Completed [facility] HIB 4 Dose Schedule 2002 00:00:00 Completed [facility] Pneumococcal 7 Conjugate, PCV7 (Prevnar7) 2002 00:00:00 Completed [facility] Polio (IPV/OPV) 2002 00:00:00 Completed [facility] DTAP 2002 00:00:00 Completed [facility] HIB 4 Dose Schedule 2002 00:00:00 Completed [facility] Pneumococcal 7 Conjugate, PCV7 (Prevnar7) 2002 00:00:00 Completed [facility] Polio (IPV/OPV) 2002 00:00:00 Completed [facility] DTAP 2002 00:00:00 Completed [facility] HIB 4 Dose Schedule 2002 00:00:00 Completed [facility] Pneumococcal 7 Conjugate, PCV7 (Prevnar7) 2002 00:00:00 Completed [facility] Polio (IPV/OPV) 2002 00:00:00 Completed [facility] DTAP 2002 00:00:00 Completed [facility] HIB 4 Dose Schedule 2002 00:00:00 Completed [facility] Pneumococcal 7 Conjugate, PCV7 (Prevnar7) 2002 00:00:00 Completed [facility] Polio (IPV/OPV) 2002 00:00:00 Completed [facility] DTAP 2002 00:00:00 Completed [facility] HIB 4 Dose Schedule 2002 00:00:00 Completed [facility] Pneumococcal 7 Conjugate, PCV7 (Prevnar7) 2002 00:00:00 Completed [facility] Polio (IPV/OPV) 2002 00:00:00 Completed [facility] DTAP 2002 00:00:00 Completed [facility] HIB 4 Dose Schedule 2002 00:00:00 Completed [facility] Pneumococcal 7 Conjugate, PCV7 (Prevnar7) 2002 00:00:00 Completed [facility] Polio (IPV/OPV) 2002 00:00:00 Completed [facility] DTAP 2002 00:00:00 Completed [facility] HIB 4 Dose Schedule 2002 00:00:00 Completed [facility] Pneumococcal 7 Conjugate, PCV7 (Prevnar7) 2002 00:00:00 Completed [facility] Polio (IPV/OPV) 2002 00:00:00 Completed [facility] DTAP 2002 00:00:00 Completed [facility] HIB 4 Dose Schedule 2002 00:00:00 Completed [facility] Pneumococcal 7 Conjugate, PCV7 (Prevnar7) 2002 00:00:00 Completed [facility] Polio (IPV/OPV) 2002 00:00:00 Completed [facility] DTAP 2002 00:00:00 Completed [facility] HIB 4 Dose Schedule 2002 00:00:00 Completed [facility] Pneumococcal 7 Conjugate, PCV7 (Prevnar7) 2002 00:00:00 Completed [facility] Polio (IPV/OPV) 2002 00:00:00 Completed [facility] DTAP 2002 00:00:00 Completed [facility] HIB 4 Dose Schedule 2002 00:00:00 Completed [facility] Pneumococcal 7 Conjugate, PCV7 (Prevnar7) 2002 00:00:00 Completed [facility] Polio (IPV/OPV) 2002 00:00:00 Completed [facility] DTAP 2002 00:00:00 Completed [facility] HIB 4 Dose Schedule 2002 00:00:00 Completed [facility] Pneumococcal 7 Conjugate, PCV7 (Prevnar7) 2002 00:00:00 Completed [facility] Polio (IPV/OPV) 2002 00:00:00 Completed [facility] DTAP 2002 00:00:00 Completed [facility] HIB 4 Dose Schedule 2002 00:00:00 Completed [facility] Pneumococcal 7 Conjugate, PCV7 (Prevnar7) 2002 00:00:00 Completed [facility] Polio (IPV/OPV) 2002 00:00:00 Completed [facility] DTAP 2002 00:00:00 Completed [facility] HIB 4 Dose Schedule 2002 00:00:00 Completed [facility] Pneumococcal 7 Conjugate, PCV7 (Prevnar7) 2002 00:00:00 Completed [facility] Polio (IPV/OPV) 2002 00:00:00 Completed [facility] DTAP 2002 00:00:00 Completed [facility] HIB 4 Dose Schedule 2002 00:00:00 Completed [facility] Pneumococcal 7 Conjugate, PCV7 (Prevnar7) 2002 00:00:00 Completed [facility] Polio (IPV/OPV) 2002 00:00:00 Completed [facility] DTAP 2002 00:00:00 Completed [facility] HIB 4 Dose Schedule 2002 00:00:00 Completed [facility] Pneumococcal 7 Conjugate, PCV7 (Prevnar7) 2002 00:00:00 Completed [facility] Polio (IPV/OPV) 2002 00:00:00 Completed [facility] DTAP 2002 00:00:00 Completed [facility] HIB 4 Dose Schedule 2002 00:00:00 Completed [facility] Pneumococcal 7 Conjugate, PCV7 (Prevnar7) 2002 00:00:00 Completed [facility] Polio (IPV/OPV) 2002 00:00:00 Completed [facility] DTAP 2002 00:00:00 Completed [facility] HIB 4 Dose Schedule 2002 00:00:00 Completed [facility] Pneumococcal 7 Conjugate, PCV7 (Prevnar7) 2002 00:00:00 Completed [facility] Polio (IPV/OPV) 2002 00:00:00 Completed [facility] DTAP 2002 00:00:00 Completed [facility] HIB 4 Dose Schedule 2002 00:00:00 Completed [facility] Pneumococcal 7 Conjugate, PCV7 (Prevnar7) 2002 00:00:00 Completed [facility] Polio (IPV/OPV) 2002 00:00:00 Completed [facility] DTAP 2002 00:00:00 Completed [facility] HIB 4 Dose Schedule 2002 00:00:00 Completed [facility] Pneumococcal 7 Conjugate, PCV7 (Prevnar7) 2002 00:00:00 Completed [facility] Polio (IPV/OPV) 2002 00:00:00 Completed [facility] DTAP 2002 00:00:00 Completed [facility] HIB 4 Dose Schedule 2002 00:00:00 Completed [facility] Pneumococcal 7 Conjugate, PCV7 (Prevnar7) 2002 00:00:00 Completed [facility] Polio (IPV/OPV) 2002 00:00:00 Completed [facility] DTAP 2002 00:00:00 Completed [facility] HIB 4 Dose Schedule 2002 00:00:00 Completed [facility] Pneumococcal 7 Conjugate, PCV7 (Prevnar7) 2002 00:00:00 Completed [facility] Polio (IPV/OPV) 2002 00:00:00 Completed [facility] DTAP 2002 00:00:00 Completed [facility] HIB 4 Dose Schedule 2002 00:00:00 Completed [facility] Pneumococcal 7 Conjugate, PCV7 (Prevnar7) 2002 00:00:00 Completed [facility] Polio (IPV/OPV) 2002 00:00:00 Completed [facility] DTAP 2002 00:00:00 Completed [facility] HIB 4 Dose Schedule 2002 00:00:00 Completed [facility] Pneumococcal 7 Conjugate, PCV7 (Prevnar7) 2002 00:00:00 Completed [facility] Polio (IPV/OPV) 2002 00:00:00 Completed [facility] DTAP 2002 00:00:00 Completed [facility] HIB 4 Dose Schedule 2002 00:00:00 Completed [facility] Pneumococcal 7 Conjugate, PCV7 (Prevnar7) 2002 00:00:00 Completed [facility] Polio (IPV/OPV) 2002 00:00:00 Completed [facility] DTAP 2002 00:00:00 Completed [facility] HIB 4 Dose Schedule 2002 00:00:00 Completed [facility] Pneumococcal 7 Conjugate, PCV7 (Prevnar7) 2002 00:00:00 Completed [facility] Polio (IPV/OPV) 2002 00:00:00 Completed [facility] DTAP 2002 00:00:00 Completed [facility] HIB 4 Dose Schedule 2002 00:00:00 Completed [facility] Pneumococcal 7 Conjugate, PCV7 (Prevnar7) 2002 00:00:00 Completed [facility] Polio (IPV/OPV) 2002 00:00:00 Completed [facility] DTAP 2002 00:00:00 Completed [facility] HIB 4 Dose Schedule 2002 00:00:00 Completed [facility] Pneumococcal 7 Conjugate, PCV7 (Prevnar7) 2002 00:00:00 Completed [facility] Polio (IPV/OPV) 2002 00:00:00 Completed [facility] DTAP 2002 00:00:00 Completed [facility] HIB 4 Dose Schedule 2002 00:00:00 Completed [facility] Pneumococcal 7 Conjugate, PCV7 (Prevnar7) 2002 00:00:00 Completed [facility] Polio (IPV/OPV) 2002 00:00:00 Completed [facility] DTAP 2002 00:00:00 Completed [facility] HIB 4 Dose Schedule 2002 00:00:00 Completed [facility] Pneumococcal 7 Conjugate, PCV7 (Prevnar7) 2002 00:00:00 Completed [facility] Polio (IPV/OPV) 2002 00:00:00 Completed [facility] DTAP 2002 00:00:00 Completed [facility] HIB 4 Dose Schedule 2002 00:00:00 Completed [facility] Pneumococcal 7 Conjugate, PCV7 (Prevnar7) 2002 00:00:00 Completed [facility] Polio (IPV/OPV) 2002 00:00:00 Completed [facility] DTAP 2002 00:00:00 Completed [facility] HIB 4 Dose Schedule 2002 00:00:00 Completed [facility] Pneumococcal 7 Conjugate, PCV7 (Prevnar7) 2002 00:00:00 Completed [facility] Polio (IPV/OPV) 2002 00:00:00 Completed [facility] DTAP 2002 00:00:00 Completed [facility] HIB 4 Dose Schedule 2002 00:00:00 Completed [facility] Pneumococcal 7 Conjugate, PCV7 (Prevnar7) 2002 00:00:00 Completed [facility] Polio (IPV/OPV) 2002 00:00:00 Completed [facility] DTAP 2002 00:00:00 Completed [facility] HIB 4 Dose Schedule 2002 00:00:00 Completed [facility] Pneumococcal 7 Conjugate, PCV7 (Prevnar7) 2002 00:00:00 Completed [facility] Polio (IPV/OPV) 2002 00:00:00 Completed [facility] DTAP 2002 00:00:00 Completed [facility] HIB 4 Dose Schedule 2002 00:00:00 Completed [facility] Pneumococcal 7 Conjugate, PCV7 (Prevnar7) 2002 00:00:00 Completed [facility] Polio (IPV/OPV) 2002 00:00:00 Completed [facility] DTAP 2002 00:00:00 Completed [facility] HIB 4 Dose Schedule 2002 00:00:00 Completed [facility] Pneumococcal 7 Conjugate, PCV7 (Prevnar7) 2002 00:00:00 Completed [facility] Polio (IPV/OPV) 2002 00:00:00 Completed [facility] DTAP 2002 00:00:00 Completed [facility] HIB 4 Dose Schedule 2002 00:00:00 Completed [facility] Pneumococcal 7 Conjugate, PCV7 (Prevnar7) 2002 00:00:00 Completed [facility] Polio (IPV/OPV) 2002 00:00:00 Completed [facility] DTAP 2002 00:00:00 Completed [facility] HIB 4 Dose Schedule 2002 00:00:00 Completed [facility] Pneumococcal 7 Conjugate, PCV7 (Prevnar7) 2002 00:00:00 Completed [facility] Polio (IPV/OPV) 2002 00:00:00 Completed [facility] DTAP 2002 00:00:00 Completed [facility] HIB 4 Dose Schedule 2002 00:00:00 Completed [facility] Pneumococcal 7 Conjugate, PCV7 (Prevnar7) 2002 00:00:00 Completed [facility] Polio (IPV/OPV) 2002 00:00:00 Completed [facility] DTAP 2002 00:00:00 Completed [facility] HIB 4 Dose Schedule 2002 00:00:00 Completed [facility] Pneumococcal 7 Conjugate, PCV7 (Prevnar7) 2002 00:00:00 Completed [facility] Polio (IPV/OPV) 2002 00:00:00 Completed [facility] DTAP 2002 00:00:00 Completed [facility] HIB 4 Dose Schedule 2002 00:00:00 Completed [facility] Pneumococcal 7 Conjugate, PCV7 (Prevnar7) 2002 00:00:00 Completed [facility] Polio (IPV/OPV) 2002 00:00:00 Completed [facility] DTAP 2002 00:00:00 Completed [facility] HIB 4 Dose Schedule 2002 00:00:00 Completed [facility] Pneumococcal 7 Conjugate, PCV7 (Prevnar7) 2002 00:00:00 Completed [facility] Polio (IPV/OPV) 2002 00:00:00 Completed [facility] DTAP 2002 00:00:00 Completed [facility] HIB 4 Dose Schedule 2002 00:00:00 Completed [facility] Pneumococcal 7 Conjugate, PCV7 (Prevnar7) 2002 00:00:00 Completed [facility] Polio (IPV/OPV) 2002 00:00:00 Completed [facility] DTAP 2002 00:00:00 Completed [facility] HIB 4 Dose Schedule 2002 00:00:00 Completed [facility] Pneumococcal 7 Conjugate, PCV7 (Prevnar7) 2002 00:00:00 Completed [facility] Polio (IPV/OPV) 2002 00:00:00 Completed [facility] DTAP 2002 00:00:00 Completed [facility] HIB 4 Dose Schedule 2002 00:00:00 Completed [facility] Pneumococcal 7 Conjugate, PCV7 (Prevnar7) 2002 00:00:00 Completed [facility] Polio (IPV/OPV) 2002 00:00:00 Completed [facility] DTAP 2002 00:00:00 Completed [facility] HIB 4 Dose Schedule 2002 00:00:00 Completed [facility] Pneumococcal 7 Conjugate, PCV7 (Prevnar7) 2002 00:00:00 Completed [facility] Polio (IPV/OPV) 2002 00:00:00 Completed [facility] DTAP 2002 00:00:00 Completed [facility] HIB 4 Dose Schedule 2002 00:00:00 Completed [facility] Pneumococcal 7 Conjugate, PCV7 (Prevnar7) 2002 00:00:00 Completed [facility] Polio (IPV/OPV) 2002 00:00:00 Completed [facility] DTAP 2002 00:00:00 Completed [facility] HIB 4 Dose Schedule 2002 00:00:00 Completed [facility] Pneumococcal 7 Conjugate, PCV7 (Prevnar7) 2002 00:00:00 Completed [facility] Polio (IPV/OPV) 2002 00:00:00 Completed [facility] DTAP 2002 00:00:00 Completed [facility] HIB 4 Dose Schedule 2002 00:00:00 Completed [facility] Pneumococcal 7 Conjugate, PCV7 (Prevnar7) 2002 00:00:00 Completed [facility] Polio (IPV/OPV) 2002 00:00:00 Completed [facility] DTAP 2002 00:00:00 Completed [facility] HIB 4 Dose Schedule 2002 00:00:00 Completed [facility] Pneumococcal 7 Conjugate, PCV7 (Prevnar7) 2002 00:00:00 Completed [facility] Polio (IPV/OPV) 2002 00:00:00 Completed [facility] DTAP 2002 00:00:00 Completed [facility] HIB 4 Dose Schedule 2002 00:00:00 Completed [facility] Pneumococcal 7 Conjugate, PCV7 (Prevnar7) 2002 00:00:00 Completed [facility] Polio (IPV/OPV) 2002 00:00:00 Completed [facility] DTAP 2002 00:00:00 Completed [facility] HIB 4 Dose Schedule 2002 00:00:00 Completed [facility] Pneumococcal 7 Conjugate, PCV7 (Prevnar7) 2002 00:00:00 Completed [facility] Polio (IPV/OPV) 2002 00:00:00 Completed [facility] DTAP 2002 00:00:00 Completed [facility] HIB 4 Dose Schedule 2002 00:00:00 Completed [facility] Hep B, Adol or Pedi Dosage 2002 00:00:00 Completed [facility] Polio (IPV/OPV) 2002 00:00:00 Completed [facility] DTAP 2002 00:00:00 Completed [facility] HIB 4 Dose Schedule 2002 00:00:00 Completed [facility] Hep B, Adol or Pedi Dosage 2002 00:00:00 Completed [facility] Polio (IPV/OPV) 2002 00:00:00 Completed [facility] DTAP 2002 00:00:00 Completed [facility] HIB 4 Dose Schedule 2002 00:00:00 Completed [facility] Hep B, Adol or Pedi Dosage 2002 00:00:00 Completed [facility] Polio (IPV/OPV) 2002 00:00:00 Completed [facility] DTAP 2002 00:00:00 Completed [facility] HIB 4 Dose Schedule 2002 00:00:00 Completed [facility] Hep B, Adol or Pedi Dosage 2002 00:00:00 Completed [facility] Polio (IPV/OPV) 2002 00:00:00 Completed [facility] DTAP 2002 00:00:00 Completed [facility] HIB 4 Dose Schedule 2002 00:00:00 Completed [facility] Hep B, Adol or Pedi Dosage 2002 00:00:00 Completed [facility] Polio (IPV/OPV) 2002 00:00:00 Completed [facility] DTAP 2002 00:00:00 Completed [facility] HIB 4 Dose Schedule 2002 00:00:00 Completed [facility] Hep B, Adol or Pedi Dosage 2002 00:00:00 Completed [facility] Polio (IPV/OPV) 2002 00:00:00 Completed [facility] DTAP 2002 00:00:00 Completed [facility] HIB 4 Dose Schedule 2002 00:00:00 Completed [facility] Hep B, Adol or Pedi Dosage 2002 00:00:00 Completed [facility] Polio (IPV/OPV) 2002 00:00:00 Completed [facility] DTAP 2002 00:00:00 Completed [facility] HIB 4 Dose Schedule 2002 00:00:00 Completed [facility] Hep B, Adol or Pedi Dosage 2002 00:00:00 Completed [facility] Polio (IPV/OPV) 2002 00:00:00 Completed [facility] DTAP 2002 00:00:00 Completed [facility] HIB 4 Dose Schedule 2002 00:00:00 Completed [facility] Hep B, Adol or Pedi Dosage 2002 00:00:00 Completed [facility] Polio (IPV/OPV) 2002 00:00:00 Completed [facility] DTAP 2002 00:00:00 Completed [facility] HIB 4 Dose Schedule 2002 00:00:00 Completed [facility] Hep B, Adol or Pedi Dosage 2002 00:00:00 Completed [facility] Polio (IPV/OPV) 2002 00:00:00 Completed [facility] DTAP 2002 00:00:00 Completed [facility] HIB 4 Dose Schedule 2002 00:00:00 Completed [facility] Hep B, Adol or Pedi Dosage 2002 00:00:00 Completed [facility] Polio (IPV/OPV) 2002 00:00:00 Completed [facility] DTAP 2002 00:00:00 Completed [facility] HIB 4 Dose Schedule 2002 00:00:00 Completed [facility] Hep B, Adol or Pedi Dosage 2002 00:00:00 Completed [facility] Polio (IPV/OPV) 2002 00:00:00 Completed [facility] DTAP 2002 00:00:00 Completed [facility] HIB 4 Dose Schedule 2002 00:00:00 Completed [facility] Hep B, Adol or Pedi Dosage 2002 00:00:00 [facility]pleted [facility] [facility] 2002 00:00:00 Completed [facility] DTAP 2002 00:00:00 Completed [facility] HIB 4 Dose Schedule 2002 00:00:00 Completed [facility] Hep B, Adol or Pedi Dosage 2002 00:00:00 Completed [facility] Polio (IPV/OPV) 2002 00:00:00 Completed [facility] DTAP 2002 00:00:00 Completed [facility] HIB 4 Dose Schedule 2002 00:00:00 Completed [facility] Hep B, Adol or Pedi Dosage 2002 00:00:00 Completed [facility] Polio (IPV/OPV) 2002 00:00:00 Completed [facility] DTAP 2002 00:00:00 Completed [facility] HIB 4 Dose Schedule 2002 00:00:00 Completed [facility] Hep B, Adol or Pedi Dosage 2002 00:00:00 Completed [facility] Polio (IPV/OPV) 2002 00:00:00 Completed [facility] DTAP 2002 00:00:00 Completed [facility] HIB 4 Dose Schedule 2002 00:00:00 Completed [facility] Hep B, Adol or Pedi Dosage 2002 00:00:00 Completed [facility] Polio (IPV/OPV) 2002 00:00:00 Completed [facility] DTAP 2002 00:00:00 Completed [facility] HIB 4 Dose Schedule 2002 00:00:00 Completed [facility] Hep B, Adol or Pedi Dosage 2002 00:00:00 Completed [facility] Polio (IPV/OPV) 2002 00:00:00 Completed [facility] DTAP 2002 00:00:00 Completed [facility] HIB 4 Dose Schedule 2002 00:00:00 Completed [facility] Hep B, Adol or Pedi Dosage 2002 00:00:00 Completed [facility] Polio (IPV/OPV) 2002 00:00:00 Completed [facility] DTAP 2002 00:00:00 Completed [facility] HIB 4 Dose Schedule 2002 00:00:00 Completed [facility] Hep B, Adol or Pedi Dosage 2002 00:00:00 Completed [facility] Polio (IPV/OPV) 2002 00:00:00 Completed [facility] DTAP 2002 00:00:00 Completed [facility] HIB 4 Dose Schedule 2002 00:00:00 Completed [facility] Hep B, Adol or Pedi Dosage 2002 00:00:00 Completed [facility] Polio (IPV/OPV) 2002 00:00:00 Completed [facility] DTAP 2002 00:00:00 Completed [facility] HIB 4 Dose Schedule 2002 00:00:00 Completed [facility] Hep B, Adol or Pedi Dosage 2002 00:00:00 Completed [facility] Polio (IPV/OPV) 2002 00:00:00 Completed [facility] DTAP 2002 00:00:00 Completed [facility] HIB 4 Dose Schedule 2002 00:00:00 Completed [facility] Hep B, Adol or Pedi Dosage 2002 00:00:00 Completed [facility] Polio (IPV/OPV) 2002 00:00:00 Completed [facility] DTAP 2002 00:00:00 Completed [facility] HIB 4 Dose Schedule 2002 00:00:00 Completed [facility] Hep B, Adol or Pedi Dosage 2002 00:00:00 Completed [facility] Polio (IPV/OPV) 2002 00:00:00 Completed [facility] DTAP 2002 00:00:00 Completed [facility] HIB 4 Dose Schedule 2002 00:00:00 Completed [facility] Hep B, Adol or Pedi Dosage 2002 00:00:00 Completed [facility] Polio (IPV/OPV) 2002 00:00:00 Completed [facility] DTAP 2002 00:00:00 Completed [facility] HIB 4 Dose Schedule 2002 00:00:00 Completed [facility] Hep B, Adol or Pedi Dosage 2002 00:00:00 Completed [facility] Polio (IPV/OPV) 2002 00:00:00 Completed [facility] DTAP 2002 00:00:00 Completed [facility] HIB 4 Dose Schedule 2002 00:00:00 Completed [facility] Hep B, Adol or Pedi Dosage 2002 00:00:00 Completed [facility] Polio (IPV/OPV) 2002 00:00:00 Completed [facility] DTAP 2002 00:00:00 Completed [facility] HIB 4 Dose Schedule 2002 00:00:00 Completed [facility] Hep B, Adol or Pedi Dosage 2002 00:00:00 Completed [facility] Polio (IPV/OPV) 2002 00:00:00 Completed [facility] DTAP 2002 00:00:00 Completed [facility] HIB 4 Dose Schedule 2002 00:00:00 Completed [facility] Hep B, Adol or Pedi Dosage 2002 00:00:00 Completed [facility] Polio (IPV/OPV) 2002 00:00:00 Completed [facility] DTAP 2002 00:00:00 Completed [facility] HIB 4 Dose Schedule 2002 00:00:00 Completed [facility] Hep B, Adol or Pedi Dosage 2002 00:00:00 Completed [facility] Polio (IPV/OPV) 2002 00:00:00 Completed [facility] DTAP 2002 00:00:00 Completed [facility] HIB 4 Dose Schedule 2002 00:00:00 Completed [facility] Hep B, Adol or Pedi Dosage 2002 00:00:00 Completed [facility] Polio (IPV/OPV) 2002 00:00:00 Completed [facility] DTAP 2002 00:00:00 Completed [facility] HIB 4 Dose Schedule 2002 00:00:00 Completed [facility] Hep B, Adol or Pedi Dosage 2002 00:00:00 Completed [facility] Polio (IPV/OPV) 2002 00:00:00 Completed [facility] DTAP 2002 00:00:00 Completed [facility] HIB 4 Dose Schedule 2002 00:00:00 Completed [facility] Hep B, Adol or Pedi Dosage 2002 00:00:00 Completed [facility] Polio (IPV/OPV) 2002 00:00:00 Completed [facility] DTAP 2002 00:00:00 Completed [facility] HIB 4 Dose Schedule 2002 00:00:00 Completed [facility] Hep B, Adol or Pedi Dosage 2002 00:00:00 Completed [facility] Polio (IPV/OPV) 2002 00:00:00 Completed [facility] DTAP 2002 00:00:00 Completed [facility] HIB 4 Dose Schedule 2002 00:00:00 Completed [facility] Hep B, Adol or Pedi Dosage 2002 00:00:00 Completed [facility] Polio (IPV/OPV) 2002 00:00:00 Completed [facility] DTAP 2002 00:00:00 Completed [facility] HIB 4 Dose Schedule 2002 00:00:00 Completed [facility] Hep B, Adol or Pedi Dosage 2002 00:00:00 Completed [facility] Polio (IPV/OPV) 2002 00:00:00 Completed [facility] DTAP 2002 00:00:00 Completed [facility] HIB 4 Dose Schedule 2002 00:00:00 Completed [facility] Hep B, Adol or Pedi Dosage 2002 00:00:00 Completed [facility] Polio (IPV/OPV) 2002 00:00:00 Completed [facility] DTAP 2002 00:00:00 Completed [facility] HIB 4 Dose Schedule 2002 00:00:00 Completed [facility] Hep B, Adol or Pedi Dosage 2002 00:00:00 Completed [facility] Polio (IPV/OPV) 2002 00:00:00 Completed [facility] DTAP 2002 00:00:00 Completed [facility] HIB 4 Dose Schedule 2002 00:00:00 Completed [facility] Hep B, Adol or Pedi Dosage 2002 00:00:00 Completed [facility] Polio (IPV/OPV) 2002 00:00:00 Completed [facility] DTAP 2002 00:00:00 Completed [facility] HIB 4 Dose Schedule 2002 00:00:00 Completed [facility] Hep B, Adol or Pedi Dosage 2002 00:00:00 Completed [facility] Polio (IPV/OPV) 2002 00:00:00 Completed [facility] DTAP 2002 00:00:00 Completed [facility] HIB 4 Dose Schedule 2002 00:00:00 Completed [facility] Hep B, Adol or Pedi Dosage 2002 00:00:00 Completed [facility] Polio (IPV/OPV) 2002 00:00:00 Completed [facility] DTAP 2002 00:00:00 Completed [facility] HIB 4 Dose Schedule 2002 00:00:00 Completed [facility] Hep B, Adol or Pedi Dosage 2002 00:00:00 Completed [facility] Polio (IPV/OPV) 2002 00:00:00 Completed [facility] DTAP 2002 00:00:00 Completed [facility] HIB 4 Dose Schedule 2002 00:00:00 Completed [facility] Hep B, Adol or Pedi Dosage 2002 00:00:00 Completed [facility] Polio (IPV/OPV) 2002 00:00:00 Completed [facility] DTAP 2002 00:00:00 Completed [facility] HIB 4 Dose Schedule 2002 00:00:00 Completed [facility] Hep B, Adol or Pedi Dosage 2002 00:00:00 Completed [facility] Polio (IPV/OPV) 2002 00:00:00 Completed [facility] DTAP 2002 00:00:00 Completed [facility] HIB 4 Dose Schedule 2002 00:00:00 Completed [facility] Hep B, Adol or Pedi Dosage 2002 00:00:00 Completed [facility] Polio (IPV/OPV) 2002 00:00:00 Completed [facility] DTAP 2002 00:00:00 Completed [facility] HIB 4 Dose Schedule 2002 00:00:00 Completed [facility] Hep B, Adol or Pedi Dosage 2002 00:00:00 Completed [facility] Polio (IPV/OPV) 2002 00:00:00 Completed [facility] DTAP 2002 00:00:00 Completed [facility] HIB 4 Dose Schedule 2002 00:00:00 Completed [facility] Hep B, Adol or Pedi Dosage 2002 00:00:00 Completed [facility] Polio (IPV/OPV) 2002 00:00:00 Completed [facility] DTAP 2002 00:00:00 Completed [facility] HIB 4 Dose Schedule 2002 00:00:00 Completed [facility] Hep B, Adol or Pedi Dosage 2002 00:00:00 Completed [facility] Polio (IPV/OPV) 2002 00:00:00 Completed [facility] DTAP 2002 00:00:00 Completed [facility] HIB 4 Dose Schedule 2002 00:00:00 Completed [facility] Hep B, Adol or Pedi Dosage 2002 00:00:00 Completed [facility] Polio (IPV/OPV) 2002 00:00:00 Completed [facility] DTAP 2002 00:00:00 Completed [facility] HIB 4 Dose Schedule 2002 00:00:00 Completed [facility] Hep B, Adol or Pedi Dosage 2002 00:00:00 Completed [facility] Polio (IPV/OPV) 2002 00:00:00 Completed [facility] DTAP 2002 00:00:00 Completed [facility] HIB 4 Dose Schedule 2002 00:00:00 Completed [facility] Hep B, Adol or Pedi Dosage 2002 00:00:00 Completed [facility] Polio (IPV/OPV) 2002 00:00:00 Completed [facility] DTAP 2002 00:00:00 Completed [facility] HIB 4 Dose Schedule 2002 00:00:00 Completed [facility] Hep B, Adol or Pedi Dosage 2002 00:00:00 Completed [facility] Polio (IPV/OPV) 2002 00:00:00 Completed [facility] DTAP 2002 00:00:00 Completed [facility] HIB 4 Dose Schedule 2002 00:00:00 Completed [facility] Hep B, Adol or Pedi Dosage 2002 00:00:00 Completed [facility] Polio (IPV/OPV) 2002 00:00:00 Completed [facility] DTAP 2002 00:00:00 Completed [facility] HIB 4 Dose Schedule 2002 00:00:00 Completed [facility] Hep B, Adol or Pedi Dosage 2002 00:00:00 Completed [facility] Polio (IPV/OPV) 2002 00:00:00 Completed [facility] DTAP 2002 00:00:00 Completed [facility] HIB 4 Dose Schedule 2002 00:00:00 Completed [facility] Hep B, Adol or Pedi Dosage 2002 00:00:00 Completed [facility] Polio (IPV/OPV) 2002 00:00:00 Completed [facility] DTAP 2002 00:00:00 Completed [facility] HIB 4 Dose Schedule 2002 00:00:00 Completed [facility] Hep B, Adol or Pedi Dosage 2002 00:00:00 Completed [facility] Polio (IPV/OPV) 2002 00:00:00 Completed [facility] DTAP 2002 00:00:00 Completed [facility] HIB 4 Dose Schedule 2002 00:00:00 Completed [facility] Hep B, Adol or Pedi Dosage 2002 00:00:00 Completed [facility] Polio (IPV/OPV) 2002 00:00:00 Completed [facility] DTAP 2002 00:00:00 Completed [facility] HIB 4 Dose Schedule 2002 00:00:00 Completed [facility] Hep B, Adol or Pedi Dosage 2002 00:00:00 Completed [facility] Polio (IPV/OPV) 2002 00:00:00 Completed [facility] DTAP 2002 00:00:00 Completed [facility] HIB 4 Dose Schedule 2002 00:00:00 Completed [facility] Hep B, Adol or Pedi Dosage 2002 00:00:00 Completed [facility] Polio (IPV/OPV) 2002 00:00:00 Completed [facility] DTAP 2002 00:00:00 Completed [facility] HIB 4 Dose Schedule 2002 00:00:00 Completed [facility] Hep B, Adol or Pedi Dosage 2002 00:00:00 Completed [facility] Polio (IPV/OPV) 2002 00:00:00 Completed [facility] DTAP 2002 00:00:00 Completed [facility] HIB 4 Dose Schedule 2002 00:00:00 Completed [facility] Hep B, Adol or Pedi Dosage 2002 00:00:00 Completed [facility] Polio (IPV/OPV) 2002 00:00:00 Completed [facility] DTAP 2002 00:00:00 Completed [facility] HIB 4 Dose Schedule 2002 00:00:00 Completed [facility] Hep B, Adol or Pedi Dosage 2002 00:00:00 Completed [facility] Polio (IPV/OPV) 2002 00:00:00 Completed [facility] DTAP 2002 00:00:00 Completed [facility] HIB 4 Dose Schedule 2002 00:00:00 Completed [facility] Hep B, Adol or Pedi Dosage 2002 00:00:00 Completed [facility] Polio (IPV/OPV) 2002 00:00:00 Completed [facility] DTAP 2002 00:00:00 Completed [facility] HIB 4 Dose Schedule 2002 00:00:00 Completed [facility] Hep B, Adol or Pedi Dosage 2002 00:00:00 Completed [facility] Polio (IPV/OPV) 2002 00:00:00 Completed [facility] DTAP 2002 00:00:00 Completed [facility] HIB 4 Dose Schedule 2002 00:00:00 Completed [facility] Hep B, Adol or Pedi Dosage 2002 00:00:00 Completed [facility] Polio (IPV/OPV) 2002 00:00:00 Completed [facility] DTAP 2002 00:00:00 Completed [facility] HIB 4 Dose Schedule 2002 00:00:00 Completed [facility] Hep B, Adol or Pedi Dosage 2002 00:00:00 Completed [facility] Polio (IPV/OPV) 2002 00:00:00 Completed [facility] DTAP 2002 00:00:00 Completed [facility] HIB 4 Dose Schedule 2002 00:00:00 Completed [facility] Hep B, Adol or Pedi Dosage 2002 00:00:00 Completed [facility] Polio (IPV/OPV) 2002 00:00:00 Completed [facility] DTAP 2002 00:00:00 Completed [facility] HIB 4 Dose Schedule 2002 00:00:00 Completed [facility] Hep B, Adol or Pedi Dosage 2002 00:00:00 Completed [facility] Polio (IPV/OPV) 2002 00:00:00 Completed [facility] DTAP 2002 00:00:00 Completed [facility] HIB 4 Dose Schedule 2002 00:00:00 Completed [facility] Hep B, Adol or Pedi Dosage 2002 00:00:00 Completed [facility] Polio (IPV/OPV) 2002 00:00:00 Completed [facility] DTAP 2002 00:00:00 Completed [facility] HIB 4 Dose Schedule 2002 00:00:00 Completed [facility] Hep B, Adol or Pedi Dosage 2002 00:00:00 Completed [facility] Polio (IPV/OPV) 2002 00:00:00 Completed [facility] DTAP 2002 00:00:00 Completed [facility] HIB 4 Dose Schedule 2002 00:00:00 Completed [facility] Hep B, Adol or Pedi Dosage 2002 00:00:00 Completed [facility] Polio (IPV/OPV) 2002 00:00:00 Completed [facility] DTAP 2002 00:00:00 Completed [facility] HIB 4 Dose Schedule 2002 00:00:00 Completed [facility] Hep B, Adol or Pedi Dosage 2002 00:00:00 Completed [facility] Polio (IPV/OPV) 2002 00:00:00 Completed [facility] DTAP 2002 00:00:00 Completed [facility] HIB 4 Dose Schedule 2002 00:00:00 Completed [facility] Hep B, Adol or Pedi Dosage 2002 00:00:00 Completed [facility] Polio (IPV/OPV) 2002 00:00:00 Completed [facility] DTAP 2002 00:00:00 Completed [facility] HIB 4 Dose Schedule 2002 00:00:00 Completed [facility] Hep B, Adol or Pedi Dosage 2002 00:00:00 Completed [facility] Polio (IPV/OPV) 2002 00:00:00 Completed [facility] DTAP 2002 00:00:00 Completed [facility] HIB 4 Dose Schedule 2002 00:00:00 Completed [facility] Hep B, Adol or Pedi Dosage 2002 00:00:00 Completed [facility] Polio (IPV/OPV) 2002 00:00:00 Completed [facility] DTAP 2002 00:00:00 Completed [facility] HIB 4 Dose Schedule 2002 00:00:00 Completed [facility] Hep B, Adol or Pedi Dosage 2002 00:00:00 Completed [facility] Polio (IPV/OPV) 2002 00:00:00 Completed [facility] DTAP 2002 00:00:00 Completed [facility] HIB 4 Dose Schedule 2002 00:00:00 Completed [facility] Hep B, Adol or Pedi Dosage 2002 00:00:00 Completed [facility] Polio (IPV/OPV) 2002 00:00:00 Completed [facility] Hep B, Adol or Pedi Dosage 2002 00:00:00 Completed [facility] Hep B, Adol or Pedi Dosage 2002 00:00:00 Completed [facility] Hep B, Adol or Pedi Dosage 2002 00:00:00 Completed [facility] Hep B, Adol or Pedi Dosage 2002 00:00:00 Completed [facility] Hep B, Adol or Pedi Dosage 2002 00:00:00 Completed [facility] Hep B, Adol or Pedi Dosage 2002 00:00:00 Completed [facility] Hep B, Adol or Pedi Dosage 2002 00:00:00 Completed [facility] Hep B, Adol or Pedi Dosage 2002 00:00:00 Completed [facility] Hep B, Adol or Pedi Dosage 2002 00:00:00 Completed [facility] Hep B, Adol or Pedi Dosage 2002 00:00:00 Completed [facility] Hep B, Adol or Pedi Dosage 2002 00:00:00 Completed [facility] Hep B, Adol or Pedi Dosage 2002 00:00:00 Completed [facility] Hep B, Adol or Pedi Dosage 2002 00:00:00 Completed [facility] Hep B, Adol or Pedi Dosage 2002 00:00:00 Completed [facility] Hep B, Adol or Pedi Dosage 2002 00:00:00 Completed [facility] Hep B, Adol or Pedi Dosage 2002 00:00:00 Completed [facility] Hep B, Adol or Pedi Dosage 2002 00:00:00 Completed [facility] Hep B, Adol or Pedi Dosage 2002 00:00:00 Completed [facility] Hep B, Adol or Pedi Dosage 2002 00:00:00 Completed [facility] Hep B, Adol or Pedi Dosage 2002 00:00:00 Completed [facility] Hep B, Adol or Pedi Dosage 2002 00:00:00 Completed [facility] Hep B, Adol or Pedi Dosage 2002 00:00:00 Completed [facility] Hep B, Adol or Pedi Dosage 2002 00:00:00 Completed [facility] Hep B, Adol or Pedi Dosage 2002 00:00:00 Completed [facility] Hep B, Adol or Pedi Dosage 2002 00:00:00 Completed [facility] Hep B, Adol or Pedi Dosage 2002 00:00:00 Completed [facility] Hep B, Adol or Pedi Dosage 2002 00:00:00 Completed [facility] Hep B, Adol or Pedi Dosage 2002 00:00:00 Completed [facility] Hep B, Adol or Pedi Dosage 2002 00:00:00 Completed [facility] Hep B, Adol or Pedi Dosage 2002 00:00:00 Completed [facility] Hep B, Adol or Pedi Dosage 2002 00:00:00 Completed [facility] Hep B, Adol or Pedi Dosage 2002 00:00:00 Completed [facility] Hep B, Adol or Pedi Dosage 2002 00:00:00 Completed [facility] Hep B, Adol or Pedi Dosage 2002 00:00:00 Completed [facility] Hep B, Adol or Pedi Dosage 2002 00:00:00 Completed [facility] Hep B, Adol or Pedi Dosage 2002 00:00:00 Completed [facility] Hep B, Adol or Pedi Dosage 2002 00:00:00 Completed [facility] Hep B, Adol or Pedi Dosage 2002 00:00:00 Completed [facility] Hep B, Adol or Pedi Dosage 2002 00:00:00 Completed [facility] Hep B, Adol or Pedi Dosage 2002 00:00:00 Completed [facility] Hep B, Adol or Pedi Dosage 2002 00:00:00 Completed [facility] Hep B, Adol or Pedi Dosage 2002 00:00:00 Completed [facility] Hep B, Adol or Pedi Dosage 2002 00:00:00 Completed [facility] Hep B, Adol or Pedi Dosage 2002 00:00:00 Completed [facility] Hep B, Adol or Pedi Dosage 2002 00:00:00 Completed [facility] Hep B, Adol or Pedi Dosage 2002 00:00:00 Completed [facility] Hep B, Adol or Pedi Dosage 2002 00:00:00 Completed [facility] Hep B, Adol or Pedi Dosage 2002 00:00:00 Completed [facility] Hep B, Adol or Pedi Dosage 2002 00:00:00 Completed [facility] Hep B, Adol or Pedi Dosage 2002 00:00:00 Completed [facility] Hep B, Adol or Pedi Dosage 2002 00:00:00 Completed [facility] Hep B, Adol or Pedi Dosage 2002 00:00:00 Completed [facility] Hep B, Adol or Pedi Dosage 2002 00:00:00 Completed [facility] Hep B, Adol or Pedi Dosage 2002 00:00:00 Completed [facility] Hep B, Adol or Pedi Dosage 2002 00:00:00 Completed [facility] Hep B, Adol or Pedi Dosage 2002 00:00:00 Completed [facility] Hep B, Adol or Pedi Dosage 2002 00:00:00 Completed [facility] Hep B, Adol or Pedi Dosage 2002 00:00:00 Completed [facility] Hep B, Adol or Pedi Dosage 2002 00:00:00 Completed [facility] Hep B, Adol or Pedi Dosage 2002 00:00:00 Completed [facility] Hep B, Adol or Pedi Dosage 2002 00:00:00 Completed [facility] Hep B, Adol or Pedi Dosage 2002 00:00:00 Completed [facility] Hep B, Adol or Pedi Dosage 2002 00:00:00 Completed [facility] Hep B, Adol or Pedi Dosage 2002 00:00:00 Completed [facility] Hep B, Adol or Pedi Dosage 2002 00:00:00 Completed [facility] Hep B, Adol or Pedi Dosage 2002 00:00:00 Completed [facility] Hep B, Adol or Pedi Dosage 2002 00:00:00 Completed [facility] Hep B, Adol or Pedi Dosage 2002 00:00:00 Completed [facility] Hep B, Adol or Pedi Dosage 2002 00:00:00 Completed [facility] Hep B, Adol or Pedi Dosage 2002 00:00:00 Completed [facility] Hep B, Adol or Pedi Dosage 2002 00:00:00 Completed [facility] Hep B, Adol or Pedi Dosage 2002 00:00:00 Completed [facility] Hep B, Adol or Pedi Dosage 2002 00:00:00 Completed [facility] Hep B, Adol or Pedi Dosage 2002 00:00:00 Completed [facility] Hep B, Adol or Pedi Dosage 2002 00:00:00 Completed [facility] Hep B, Adol or Pedi Dosage 2002 00:00:00 Completed [facility] Hep B, Adol or Pedi Dosage 2002 00:00:00 Completed [facility] Hep B, Adol or Pedi Dosage 2002 00:00:00 Completed [facility] Hep B, Adol or Pedi Dosage 2002 00:00:00 Completed [facility] Hep B, Adol or Pedi Dosage 2002 00:00:00 Completed [facility] Hep B, Adol or Pedi Dosage 2002 00:00:00 Completed [facility] Hep B, Adol or Pedi Dosage 2002 00:00:00 Completed [facility] Hep B, Adol or Pedi Dosage 2002 00:00:00 Completed [facility] Hep B, Adol or Pedi Dosage 2002 00:00:00 Completed [facility] Hep B, Adol or Pedi Dosage 2002 00:00:00 Completed [facility] Hep B, Adol or Pedi Dosage 2002 00:00:00 Completed [facility] Hep B, Adol or Pedi Dosage 2002 00:00:00 Completed [facility] Hep B, Adol or Pedi Dosage 2002 00:00:00 Completed [facility] Hep B, Adol or Pedi Dosage 2002 00:00:00 Completed [facility] Hep B, Adol or Pedi Dosage 2002 00:00:00 Completed [facility] Hep B, Adol or Pedi Dosage 2002 00:00:00 Completed [facility] Hep B, Adol or Pedi Dosage 2002 00:00:00 Completed [facility] Hep B, Adol or Pedi Dosage 2002 00:00:00 Completed [facility] Hep B, Adol or Pedi Dosage 2002 00:00:00 Completed [facility] Hep B, Adol or Pedi Dosage 2002 00:00:00 Completed [facility] Hep B, Adol or Pedi Dosage 2002 00:00:00 Completed [facility] Hep B, Adol or Pedi Dosage 2002 00:00:00 Completed [facility] Hep B, Adol or Pedi Dosage 2002 00:00:00 Completed [facility] Hep B, Adol or Pedi Dosage 2002 00:00:00 Completed [facility] Hep B, Adol or Pedi Dosage 2002 00:00:00 Completed [facility] Hep B, Adol or Pedi Dosage 2002 00:00:00 Completed [facility] Hep B, Adol or Pedi Dosage 2002 00:00:00 [facility]pleted [facility] [facility] Adol or Pedi Dos[facility] 2002 00:00:00 Completed [facility] Hep B, Adol or Pedi Dosage 2002 00:00:00 Completed [facility] Hep B, Adol or Pedi Dosage 2002 00:00:00 Completed [facility] HEPATITIS A Unknown Completed [facility] Influenza Virus Vaccine Unknown Completed [facility] HEPATITIS A Unknown Completed [facility] DTAP Unknown Completed [facility] Proquad (MMR/VARICELLA) Unknown Completed [facility] Polio (IPV/OPV) Unknown Completed [facility] Influenza Virus Vaccine Unknown Completed [facility] Influenza Virus Vaccine Unknown Completed [facility] Influenza Virus Vaccine Unknown Completed [facility] Influenza Virus Vaccine Unknown Completed [facility] Influenza Virus Vaccine Unknown Completed [facility] Influenza Virus Vaccine Unknown Completed [facility] Influenza Virus Vaccine (3+ yrs) Unknown Completed [facility] Meningococcal Polysaccharide (groups A, C, Y and W-135) conjugate vaccine (MCV4P) Unknown Completed [facility] TDAP Unknown Completed [facility] Influenza Virus Vaccine (3+ yrs) Unknown Completed [facility] Influenza Virus Vaccine Quad IM 3+ YRS Unknown Completed [facility] HPV9 Unknown Completed [facility] HPV Unknown Completed [facility] HPV9 Unknown Completed [facility] Influenza Virus Vaccine Quad IM 3+ YRS Unknown Completed [facility] Meningococcal Polysaccharide (groups A, C, Y and W-135) conjugate vaccine (MCV4P) Unknown Completed [facility] Influenza Virus Vaccine Quad .5 mL IM 6+ MO (FLUZONE/FLULAVAL/FL UARIX) Unknown Completed [facility] Meningococcal B, OMV Unknown Completed [facility] Hep B, Adol or Pedi Dosage Unknown Completed [facility] Meningococcal B, OMV Unknown Completed [facility] Influenza Virus Vaccine Quad .5 mL IM 6+ MO (FLUZONE/FLULAVAL/FL UARIX) Unknown Completed [facility] SARS-COV-2 COVID-19 PFIZER VACCINE Unknown Completed [facility] SARS-COV-2 COVID-19 PFIZER VACCINE Unknown Completed [facility] SARS-COV-2 COVID-19 PFIZER VACCINE Unknown Completed [facility] SARS-COV-2 COVID-19 MIKE-SUCROSE VACCINE 12 YRS+, BIVALENT 0.3ML, IM, (PFIZER ARITA TOP) Unknown Completed [facility] DTAP Unknown [facility]pleted [facility] DTAP Unknown Completed [facility] DTAP Unknown Completed [facility] HIB 4 Dose Schedule Unknown Completed [facility] HIB 4 Dose Schedule Unknown Completed [facility] HIB 4 Dose Schedule Unknown Completed [facility] Hep B, Adol or Pedi Dosage Unknown Completed [facility] Hep B, Adol or Pedi Dosage Unknown Completed [facility] Pneumococcal 7 Conjugate, PCV7 (Prevnar7) Unknown Completed [facility] Pneumococcal 7 Conjugate, PCV7 (Prevnar7) Unknown Completed [facility] Polio (IPV/OPV) Unknown Completed [facility] Polio (IPV/OPV) Unknown Completed [facility] HIB 4 Dose Schedule Unknown Completed [facility] MMR Unknown Completed [facility] Pneumococcal 7 Conjugate, PCV7 (Prevnar7) Unknown Completed [facility] Polio (IPV/OPV) Unknown Completed [facility] Varicella (varivax)(chicken pox) Unknown Completed [facility] HEPATITIS A Unknown Completed [facility] Influenza Virus Vaccine Unknown Completed [facility] HEPATITIS A Unknown Completed [facility] DTAP Unknown Completed [facility] Proquad (MMR/VARICELLA) Unknown Completed [facility] Polio (IPV/OPV) Unknown Completed [facility] Influenza Virus Vaccine Unknown Completed [facility] Influenza Virus Vaccine Unknown Completed [facility] Influenza Virus Vaccine Unknown Completed [facility] Influenza Virus Vaccine Unknown Completed [facility] Influenza Virus Vaccine Unknown Completed [facility] Influenza Virus Vaccine Unknown Completed [facility] Influenza Virus Vaccine (3+ yrs) Unknown Completed [facility] Meningococcal Polysaccharide (groups A, C, Y and W-135) conjugate vaccine (MCV4P) Unknown Completed [facility] TDAP Unknown Completed [facility] Influenza Virus Vaccine (3+ yrs) Unknown Completed [facility] Influenza Virus Vaccine Quad IM 3+ YRS Unknown Completed [facility] HPV9 Unknown Completed [facility] HPV Unknown Completed [facility] HPV9 Unknown Completed [facility] Influenza Virus Vaccine Quad IM 3+ YRS Unknown Completed [facility] Meningococcal Polysaccharide (groups A, C, Y and W-135) conjugate vaccine (MCV4P) Unknown Completed [facility] Influenza Virus Vaccine Quad .5 mL IM 6+ MO (FLUZONE/FLULAVAL/FL UARIX) Unknown Completed [facility] Meningococcal B, OMV Unknown Completed [facility] Hep B, Adol or Pedi Dosage Unknown Completed [facility] Meningococcal B, OMV Unknown Completed [facility] Influenza Virus Vaccine Quad .5 mL IM 6+ MO (FLUZONE/FLULAVAL/FL UARIX) Unknown Completed [facility] SARS-COV-2 COVID-19 PFIZER VACCINE Unknown Completed [facility] SARS-COV-2 COVID-19 PFIZER VACCINE Unknown Completed [facility] SARS-COV-2 COVID-19 PFIZER VACCINE Unknown Completed [facility] SARS-COV-2 COVID-19 MIKE-SUCROSE VACCINE 12 YRS+, BIVALENT 0.3ML, IM, (PFIZER ARITA TOP) Unknown Completed [facility] DTAP Unknown [facility]pleted [facility] DTAP Unknown Completed [facility] DTAP Unknown Completed [facility] HIB 4 Dose Schedule Unknown Completed [facility] HIB 4 Dose Schedule Unknown Completed [facility] HIB 4 Dose Schedule Unknown Completed [facility] Hep B, Adol or Pedi Dosage Unknown Completed [facility] Hep B, Adol or Pedi Dosage Unknown Completed [facility] Pneumococcal 7 Conjugate, PCV7 (Prevnar7) Unknown Completed [facility] Pneumococcal 7 Conjugate, PCV7 (Prevnar7) Unknown Completed [facility] Polio (IPV/OPV) Unknown Completed [facility] Polio (IPV/OPV) Unknown Completed [facility] HIB 4 Dose Schedule Unknown Completed [facility] MMR Unknown Completed [facility] Pneumococcal 7 Conjugate, PCV7 (Prevnar7) Unknown Completed [facility] Polio (IPV/OPV) Unknown Completed [facility] Varicella (varivax)(chicken pox) Unknown Completed [facility] HEPATITIS A Unknown Completed [facility] Influenza Virus Vaccine Unknown Completed [facility] HEPATITIS A Unknown Completed [facility] DTAP Unknown Completed [facility] Proquad (MMR/VARICELLA) Unknown Completed [facility] Polio (IPV/OPV) Unknown Completed [facility] Influenza Virus Vaccine Unknown Completed [facility] Influenza Virus Vaccine Unknown Completed [facility] Influenza Virus Vaccine Unknown Completed [facility] Influenza Virus Vaccine Unknown Completed [facility] Influenza Virus Vaccine Unknown Completed [facility] Influenza Virus Vaccine Unknown Completed [facility] Influenza Virus Vaccine (3+ yrs) Unknown Completed [facility] Meningococcal Polysaccharide (groups A, C, Y and W-135) conjugate vaccine (MCV4P) Unknown Completed [facility] TDAP Unknown Completed [facility] Influenza Virus Vaccine (3+ yrs) Unknown Completed [facility] Influenza Virus Vaccine Quad IM 3+ YRS Unknown Completed [facility] HPV9 Unknown Completed [facility] HPV Unknown Completed [facility] HPV9 Unknown Completed [facility] Influenza Virus Vaccine Quad IM 3+ YRS Unknown Completed [facility] Meningococcal Polysaccharide (groups A, C, Y and W-135) conjugate vaccine (MCV4P) Unknown Completed [facility] Influenza Virus Vaccine Quad .5 mL IM 6+ MO (FLUZONE/FLULAVAL/FL UARIX) Unknown Completed [facility] Meningococcal B, OMV Unknown Completed [facility] Hep B, Adol or Pedi Dosage Unknown Completed [facility] Meningococcal B, OMV Unknown Completed [facility] Influenza Virus Vaccine Quad .5 mL IM 6+ MO (FLUZONE/FLULAVAL/FL UARIX) Unknown Completed [facility] SARS-COV-2 COVID-19 PFIZER VACCINE Unknown Completed [facility] SARS-COV-2 COVID-19 PFIZER VACCINE Unknown Completed [facility] SARS-COV-2 COVID-19 PFIZER VACCINE Unknown Completed [facility] SARS-COV-2 COVID-19 MIKE-SUCROSE VACCINE 12 YRS+, BIVALENT 0.3ML, IM, (PFIZER ARITA TOP) Unknown Completed [facility] HEPATITIS A Unknown Completed [facility] Influenza Virus Vaccine Unknown Completed [facility] HEPATITIS A Unknown Completed [facility] DTAP Unknown Completed [facility] Proquad (MMR/VARICELLA) Unknown Completed [facility] Polio (IPV/OPV) Unknown Completed [facility] Influenza Virus Vaccine Unknown Completed [facility] Influenza Virus Vaccine Unknown Completed [facility] Influenza Virus Vaccine Unknown Completed [facility] Influenza Virus Vaccine Unknown Completed [facility] Influenza Virus Vaccine Unknown Completed [facility] Influenza Virus Vaccine Unknown Completed [facility] Influenza Virus Vaccine (3+ yrs) Unknown Completed [facility] Meningococcal Polysaccharide (groups A, C, Y and W-135) conjugate vaccine (MCV4P) Unknown Completed [facility] TDAP Unknown Completed [facility] Influenza Virus Vaccine (3+ yrs) Unknown Completed [facility] Influenza Virus Vaccine Quad IM 3+ YRS Unknown Completed [facility] HPV9 Unknown Completed [facility] HPV Unknown Completed [facility] HPV9 Unknown Completed [facility] Influenza Virus Vaccine Quad IM 3+ YRS Unknown Completed [facility] Meningococcal Polysaccharide (groups A, C, Y and W-135) conjugate vaccine (MCV4P) Unknown Completed [facility] Influenza Virus Vaccine Quad .5 mL IM 6+ MO (FLUZONE/FLULAVAL/FL UARIX) Unknown Completed [facility] Meningococcal B, OMV Unknown Completed [facility] Hep B, Adol or Pedi Dosage Unknown Completed [facility] Meningococcal B, OMV Unknown Completed [facility] Influenza Virus Vaccine Quad .5 mL IM 6+ MO (FLUZONE/FLULAVAL/FL UARIX) Unknown Completed [facility] SARS-COV-2 COVID-19 PFIZER VACCINE Unknown Completed [facility] SARS-COV-2 COVID-19 PFIZER VACCINE Unknown Completed [facility] SARS-COV-2 COVID-19 PFIZER VACCINE Unknown Completed [facility] SARS-COV-2 COVID-19 MIKE-SUCROSE VACCINE 12 YRS+, BIVALENT 0.3ML, IM, (PFIZER ARITA TOP) Unknown Completed [facility] DTAP Unknown Completed [facility] DTAP Unknown Completed [facility] DTAP Unknown Completed [facility] HIB 4 Dose Schedule Unknown Completed [facility] HIB 4 Dose Schedule Unknown Completed [facility] HIB 4 Dose Schedule Unknown Completed [facility] Hep B, Adol or Pedi Dosage Unknown Completed [facility] Hep B, Adol or Pedi Dosage Unknown Completed [facility] Pneumococcal 7 Conjugate, PCV7 (Prevnar7) Unknown Completed [facility] Pneumococcal 7 Conjugate, PCV7 (Prevnar7) Unknown Completed [facility] Polio (IPV/OPV) Unknown Completed [facility] Polio (IPV/OPV) Unknown Completed [facility] HIB 4 Dose Schedule Unknown Completed [facility] MMR Unknown Completed [facility] Pneumococcal 7 Conjugate, PCV7 (Prevnar7) Unknown Completed [facility] Polio (IPV/OPV) Unknown Completed [facility] Varicella (varivax)(chicken pox) Unknown Completed [facility] HEPATITIS A Unknown Completed [facility] Influenza Virus Vaccine Unknown Completed [facility] HEPATITIS A Unknown Completed [facility] DTAP Unknown Completed [facility] Proquad (MMR/VARICELLA) Unknown Completed [facility] Polio (IPV/OPV) Unknown Completed [facility] Influenza Virus Vaccine Unknown Completed [facility] Influenza Virus Vaccine Unknown Completed [facility] Influenza Virus Vaccine Unknown Completed [facility] Influenza Virus Vaccine Unknown Completed [facility] Influenza Virus Vaccine Unknown Completed [facility] Influenza Virus Vaccine Unknown Completed [facility] Influenza Virus Vaccine (3+ yrs) Unknown Completed [facility] Meningococcal Polysaccharide (groups A, C, Y and W-135) conjugate vaccine (MCV4P) Unknown Completed [facility] TDAP Unknown Completed [facility] Influenza Virus Vaccine (3+ yrs) Unknown Completed [facility] Influenza Virus Vaccine Quad IM 3+ YRS Unknown Completed [facility] HPV9 Unknown Completed [facility] HPV Unknown Completed [facility] HPV9 Unknown Completed [facility] Influenza Virus Vaccine Quad IM 3+ YRS Unknown Completed [facility] Meningococcal Polysaccharide (groups A, C, Y and W-135) conjugate vaccine (MCV4P) Unknown Completed [facility] Influenza Virus Vaccine Quad .5 mL IM 6+ MO (FLUZONE/FLULAVAL/FL UARIX) Unknown Completed [facility] Meningococcal B, OMV Unknown Completed [facility] Hep B, Adol or Pedi Dosage Unknown Completed [facility] Meningococcal B, OMV Unknown Completed [facility] Influenza Virus Vaccine Quad .5 mL IM 6+ MO (FLUZONE/FLULAVAL/FL UARIX) Unknown Completed [facility] SARS-COV-2 COVID-19 PFIZER VACCINE Unknown Completed [facility] SARS-COV-2 COVID-19 PFIZER VACCINE Unknown Completed [facility] SARS-COV-2 COVID-19 PFIZER VACCINE Unknown Completed [facility] SARS-COV-2 COVID-19 MIKE-SUCROSE VACCINE 12 YRS+, BIVALENT 0.3ML, IM, (PFIZER ARITA TOP) Unknown Completed [facility] HEPATITIS A Unknown Completed [facility] Influenza Virus Vaccine Unknown Completed [facility] HEPATITIS A Unknown Completed [facility] DTAP Unknown Completed [facility] Proquad (MMR/VARICELLA) Unknown Completed [facility] Polio (IPV/OPV) Unknown Completed [facility] Influenza Virus Vaccine Unknown Completed [facility] Influenza Virus Vaccine Unknown Completed [facility] Influenza Virus Vaccine Unknown Completed [facility] Influenza Virus Vaccine Unknown Completed [facility] Influenza Virus Vaccine Unknown Completed [facility] Influenza Virus Vaccine Unknown Completed [facility] Influenza Virus Vaccine (3+ yrs) Unknown Completed [facility] Meningococcal Polysaccharide (groups A, C, Y and W-135) conjugate vaccine (MCV4P) Unknown Completed [facility] TDAP Unknown Completed [facility] Influenza Virus Vaccine (3+ yrs) Unknown Completed [facility] Influenza Virus Vaccine Quad IM 3+ YRS Unknown Completed [facility] HPV9 Unknown Completed [facility] HPV Unknown Completed [facility] HPV9 Unknown Completed [facility] Influenza Virus Vaccine Quad IM 3+ YRS Unknown Completed [facility] Meningococcal Polysaccharide (groups A, C, Y and W-135) conjugate vaccine (MCV4P) Unknown Completed [facility] Influenza Virus Vaccine Quad .5 mL IM 6+ MO (FLUZONE/FLULAVAL/FL UARIX) Unknown Completed [facility] Meningococcal B, OMV Unknown Completed [facility] Hep B, Adol or Pedi Dosage Unknown Completed [facility] Meningococcal B, OMV Unknown Completed [facility] Influenza Virus Vaccine Quad .5 mL IM 6+ MO (FLUZONE/FLULAVAL/FL UARIX) Unknown Completed [facility] SARS-COV-2 COVID-19 PFIZER VACCINE Unknown Completed [facility] SARS-COV-2 COVID-19 PFIZER VACCINE Unknown Completed [facility] SARS-COV-2 COVID-19 PFIZER VACCINE Unknown Completed [facility] SARS-COV-2 COVID-19 MIKE-SUCROSE VACCINE 12 YRS+, BIVALENT 0.3ML, IM, (PFIZER ARITA TOP) Unknown Completed [facility] HEPATITIS A Unknown Completed [facility] Influenza Virus Vaccine Unknown Completed [facility] HEPATITIS A Unknown Completed [facility] DTAP Unknown Completed [facility] Proquad (MMR/VARICELLA) Unknown Completed [facility] Polio (IPV/OPV) Unknown Completed [facility] Influenza Virus Vaccine Unknown Completed [facility] Influenza Virus Vaccine Unknown Completed [facility] Influenza Virus Vaccine Unknown Completed [facility] Influenza Virus Vaccine Unknown Completed [facility] Influenza Virus Vaccine Unknown Completed [facility] Influenza Virus Vaccine Unknown Completed [facility] Influenza Virus Vaccine (3+ yrs) Unknown Completed [facility] Meningococcal Polysaccharide (groups A, C, Y and W-135) conjugate vaccine (MCV4P) Unknown Completed [facility] TDAP Unknown Completed [facility] Influenza Virus Vaccine (3+ yrs) Unknown Completed [facility] Influenza Virus Vaccine Quad IM 3+ YRS Unknown Completed [facility] HPV9 Unknown Completed [facility] HPV Unknown Completed [facility] HPV9 Unknown Completed [facility] Influenza Virus Vaccine Quad IM 3+ YRS Unknown Completed [facility] Meningococcal Polysaccharide (groups A, C, Y and W-135) conjugate vaccine (MCV4P) Unknown Completed [facility] Influenza Virus Vaccine Quad .5 mL IM 6+ MO (FLUZONE/FLULAVAL/FL UARIX) Unknown Completed [facility] Meningococcal B, OMV Unknown Completed [facility] Hep B, Adol or Pedi Dosage Unknown Completed [facility] Meningococcal B, OMV Unknown Completed [facility] Influenza Virus Vaccine Quad .5 mL IM 6+ MO (FLUZONE/FLULAVAL/FL UARIX) Unknown Completed [facility] SARS-COV-2 COVID-19 PFIZER VACCINE Unknown Completed [facility] SARS-COV-2 COVID-19 PFIZER VACCINE Unknown Completed [facility] SARS-COV-2 COVID-19 PFIZER VACCINE Unknown Completed [facility] SARS-COV-2 COVID-19 MIKE-SUCROSE VACCINE 12 YRS+, BIVALENT 0.3ML, IM, (PFIZER ARITA TOP) Unknown Completed [facility] DTAP Unknown Completed [facility] DTAP Unknown Completed [facility] DTAP Unknown Completed [facility] HIB 4 Dose Schedule Unknown Completed [facility] HIB 4 Dose Schedule Unknown Completed [facility] HIB 4 Dose Schedule Unknown Completed [facility] Hep B, Adol or Pedi Dosage Unknown Completed [facility] Hep B, Adol or Pedi Dosage Unknown Completed [facility] Pneumococcal 7 Conjugate, PCV7 (Prevnar7) Unknown Completed [facility] Pneumococcal 7 Conjugate, PCV7 (Prevnar7) Unknown Completed [facility] Polio (IPV/OPV) Unknown Completed [facility] Polio (IPV/OPV) Unknown Completed [facility] HIB 4 Dose Schedule Unknown Completed [facility] MMR Unknown Completed [facility] Pneumococcal 7 Conjugate, PCV7 (Prevnar7) Unknown Completed [facility] Polio (IPV/OPV) Unknown Completed [facility] Varicella (varivax)(chicken pox) Unknown Completed [facility] HEPATITIS A Unknown Completed [facility] Influenza Virus Vaccine Unknown Completed [facility] HEPATITIS A Unknown Completed [facility] DTAP Unknown Completed [facility] Proquad (MMR/VARICELLA) Unknown Completed [facility] Polio (IPV/OPV) Unknown Completed [facility] Influenza Virus Vaccine Unknown Completed [facility] Influenza Virus Vaccine Unknown Completed [facility] Influenza Virus Vaccine Unknown Completed [facility] Influenza Virus Vaccine Unknown Completed [facility] Influenza Virus Vaccine Unknown Completed [facility] Influenza Virus Vaccine Unknown Completed [facility] Influenza Virus Vaccine (3+ yrs) Unknown Completed [facility] Meningococcal Polysaccharide (groups A, C, Y and W-135) conjugate vaccine (MCV4P) Unknown Completed [facility] TDAP Unknown Completed [facility] Influenza Virus Vaccine (3+ yrs) Unknown Completed [facility] Influenza Virus Vaccine Quad IM 3+ YRS Unknown Completed [facility] HPV9 Unknown Completed [facility] HPV Unknown Completed [facility] HPV9 Unknown Completed [facility] Influenza Virus Vaccine Quad IM 3+ YRS Unknown Completed [facility] Meningococcal Polysaccharide (groups A, C, Y and W-135) conjugate vaccine (MCV4P) Unknown Completed [facility] Influenza Virus Vaccine Quad .5 mL IM 6+ MO (FLUZONE/FLULAVAL/FL UARIX) Unknown Completed [facility] Meningococcal B, OMV Unknown Completed [facility] Hep B, Adol or Pedi Dosage Unknown Completed [facility] Meningococcal B, OMV Unknown Completed [facility] Influenza Virus Vaccine Quad .5 mL IM 6+ MO (FLUZONE/FLULAVAL/FL UARIX) Unknown Completed [facility] SARS-COV-2 COVID-19 PFIZER VACCINE Unknown Completed [facility] SARS-COV-2 COVID-19 PFIZER VACCINE Unknown Completed [facility] SARS-COV-2 COVID-19 PFIZER VACCINE Unknown Completed [facility] SARS-COV-2 COVID-19 MIKE-SUCROSE VACCINE 12 YRS+, BIVALENT 0.3ML, IM, (PFIZER ARITA TOP) Unknown Completed [facility] DTAP Unknown [facility]pleted [facility] DTAP Unknown Completed [facility] DTAP Unknown Completed [facility] HIB 4 Dose Schedule Unknown Completed [facility] HIB 4 Dose Schedule Unknown Completed [facility] HIB 4 Dose Schedule Unknown Completed [facility] Hep B, Adol or Pedi Dosage Unknown Completed [facility] Hep B, Adol or Pedi Dosage Unknown Completed [facility] Pneumococcal 7 Conjugate, PCV7 (Prevnar7) Unknown Completed [facility] Pneumococcal 7 Conjugate, PCV7 (Prevnar7) Unknown Completed [facility] Polio (IPV/OPV) Unknown Completed [facility] Polio (IPV/OPV) Unknown Completed [facility] HIB 4 Dose Schedule Unknown Completed [facility] MMR Unknown Completed [facility] Pneumococcal 7 Conjugate, PCV7 (Prevnar7) Unknown Completed [facility] Polio (IPV/OPV) Unknown Completed [facility] Varicella (varivax)(chicken pox) Unknown Completed [facility] HEPATITIS A Unknown Completed [facility] Influenza Virus Vaccine Unknown Completed [facility] HEPATITIS A Unknown Completed [facility] DTAP Unknown Completed [facility] Proquad (MMR/VARICELLA) Unknown Completed [facility] Polio (IPV/OPV) Unknown Completed [facility] Influenza Virus Vaccine Unknown Completed [facility] Influenza Virus Vaccine Unknown Completed [facility] Influenza Virus Vaccine Unknown Completed [facility] Influenza Virus Vaccine Unknown Completed [facility] Influenza Virus Vaccine Unknown Completed [facility] Influenza Virus Vaccine Unknown Completed [facility] Influenza Virus Vaccine (3+ yrs) Unknown Completed [facility] Meningococcal Polysaccharide (groups A, C, Y and W-135) conjugate vaccine (MCV4P) Unknown Completed [facility] TDAP Unknown Completed [facility] Influenza Virus Vaccine (3+ yrs) Unknown Completed [facility] Influenza Virus Vaccine Quad IM 3+ YRS Unknown Completed [facility] HPV9 Unknown Completed [facility] HPV Unknown Completed [facility] HPV9 Unknown Completed [facility] Influenza Virus Vaccine Quad IM 3+ YRS Unknown Completed [facility] Meningococcal Polysaccharide (groups A, C, Y and W-135) conjugate vaccine (MCV4P) Unknown Completed [facility] Influenza Virus Vaccine Quad .5 mL IM 6+ MO (FLUZONE/FLULAVAL/FL UARIX) Unknown Completed [facility] Meningococcal B, OMV Unknown Completed [facility] Hep B, Adol or Pedi Dosage Unknown Completed [facility] Meningococcal B, OMV Unknown Completed [facility] Influenza Virus Vaccine Quad .5 mL IM 6+ MO (FLUZONE/FLULAVAL/FL UARIX) Unknown Completed [facility] SARS-COV-2 COVID-19 PFIZER VACCINE Unknown Completed [facility] SARS-COV-2 COVID-19 PFIZER VACCINE Unknown Completed [facility] SARS-COV-2 COVID-19 PFIZER VACCINE Unknown Completed [facility] SARS-COV-2 COVID-19 MIKE-SUCROSE VACCINE 12 YRS+, BIVALENT 0.3ML, IM, (PFIZER ARITA TOP) Unknown Completed [facility] DTAP Unknown [facility]pleted [facility] DTAP Unknown Completed [facility] DTAP Unknown Completed [facility] HIB 4 Dose Schedule Unknown Completed [facility] HIB 4 Dose Schedule Unknown Completed [facility] HIB 4 Dose Schedule Unknown Completed [facility] Hep B, Adol or Pedi Dosage Unknown Completed [facility] Hep B, Adol or Pedi Dosage Unknown Completed [facility] Pneumococcal 7 Conjugate, PCV7 (Prevnar7) Unknown Completed [facility] Pneumococcal 7 Conjugate, PCV7 (Prevnar7) Unknown Completed [facility] Polio (IPV/OPV) Unknown Completed [facility] Polio (IPV/OPV) Unknown Completed [facility] HIB 4 Dose Schedule Unknown Completed [facility] MMR Unknown Completed [facility] Pneumococcal 7 Conjugate, PCV7 (Prevnar7) Unknown Completed [facility] Polio (IPV/OPV) Unknown Completed [facility] Varicella (varivax)(chicken pox) Unknown Completed [facility] HEPATITIS A Unknown Completed [facility] Influenza Virus Vaccine Unknown Completed [facility] HEPATITIS A Unknown Completed [facility] DTAP Unknown Completed [facility] Proquad (MMR/VARICELLA) Unknown Completed [facility] Polio (IPV/OPV) Unknown Completed [facility] Influenza Virus Vaccine Unknown Completed [facility] Influenza Virus Vaccine Unknown Completed [facility] Influenza Virus Vaccine Unknown Completed [facility] Influenza Virus Vaccine Unknown Completed [facility] Influenza Virus Vaccine Unknown Completed [facility] Influenza Virus Vaccine Unknown Completed [facility] Influenza Virus Vaccine (3+ yrs) Unknown Completed [facility] Meningococcal Polysaccharide (groups A, C, Y and W-135) conjugate vaccine (MCV4P) Unknown Completed [facility] TDAP Unknown Completed [facility] Influenza Virus Vaccine (3+ yrs) Unknown Completed [facility] Influenza Virus Vaccine Quad IM 3+ YRS Unknown Completed [facility] HPV9 Unknown Completed [facility] HPV Unknown Completed [facility] HPV9 Unknown Completed [facility] Influenza Virus Vaccine Quad IM 3+ YRS Unknown Completed [facility] Meningococcal Polysaccharide (groups A, C, Y and W-135) conjugate vaccine (MCV4P) Unknown Completed [facility] Influenza Virus Vaccine Quad .5 mL IM 6+ MO (FLUZONE/FLULAVAL/FL UARIX) Unknown Completed [facility] Meningococcal B, OMV Unknown Completed [facility] Hep B, Adol or Pedi Dosage Unknown Completed [facility] Meningococcal B, OMV Unknown Completed [facility] Influenza Virus Vaccine Quad .5 mL IM 6+ MO (FLUZONE/FLULAVAL/FL UARIX) Unknown Completed [facility] SARS-COV-2 COVID-19 PFIZER VACCINE Unknown Completed [facility] SARS-COV-2 COVID-19 PFIZER VACCINE Unknown Completed [facility] SARS-COV-2 COVID-19 PFIZER VACCINE Unknown Completed [facility] SARS-COV-2 COVID-19 MIKE-SUCROSE VACCINE 12 YRS+, BIVALENT 0.3ML, IM, (PFIZER ARITA TOP) Unknown Completed [facility] DTAP Unknown Completed [facility] DTAP Unknown Completed [facility] DTAP Unknown Completed [facility] HIB 4 Dose Schedule Unknown Completed [facility] HIB 4 Dose Schedule Unknown Completed [facility] HIB 4 Dose Schedule Unknown Completed [facility] Hep B, Adol or Pedi Dosage Unknown Completed [facility] Hep B, Adol or Pedi Dosage Unknown Completed [facility] Pneumococcal 7 Conjugate, PCV7 (Prevnar7) Unknown Completed [facility] Pneumococcal 7 Conjugate, PCV7 (Prevnar7) Unknown Completed [facility] Polio (IPV/OPV) Unknown Completed [facility] Polio (IPV/OPV) Unknown Completed [facility] HIB 4 Dose Schedule Unknown Completed [facility] MMR Unknown Completed [facility] Pneumococcal 7 Conjugate, PCV7 (Prevnar7) Unknown Completed [facility] Polio (IPV/OPV) Unknown Completed [facility] Varicella (varivax)(chicken pox) Unknown Completed [facility] HEPATITIS A Unknown Completed [facility] Influenza Virus Vaccine Unknown Completed [facility] HEPATITIS A Unknown Completed [facility] DTAP Unknown Completed [facility] Proquad (MMR/VARICELLA) Unknown Completed [facility] Polio (IPV/OPV) Unknown Completed [facility] Influenza Virus Vaccine Unknown Completed [facility] Influenza Virus Vaccine Unknown Completed [facility] Influenza Virus Vaccine Unknown Completed [facility] Influenza Virus Vaccine Unknown Completed [facility] Influenza Virus Vaccine Unknown Completed [facility] Influenza Virus Vaccine Unknown Completed [facility] Influenza Virus Vaccine (3+ yrs) Unknown Completed [facility] Meningococcal Polysaccharide (groups A, C, Y and W-135) conjugate vaccine (MCV4P) Unknown Completed [facility] TDAP Unknown Completed [facility] Influenza Virus Vaccine (3+ yrs) Unknown Completed [facility] Influenza Virus Vaccine Quad IM 3+ YRS Unknown Completed [facility] HPV9 Unknown Completed [facility] HPV Unknown Completed [facility] HPV9 Unknown Completed [facility] Influenza Virus Vaccine Quad IM 3+ YRS Unknown Completed [facility] Meningococcal Polysaccharide (groups A, C, Y and W-135) conjugate vaccine (MCV4P) Unknown Completed [facility] Influenza Virus Vaccine Quad .5 mL IM 6+ MO (FLUZONE/FLULAVAL/FL UARIX) Unknown Completed [facility] Meningococcal B, OMV Unknown Completed [facility] Hep B, Adol or Pedi Dosage Unknown Completed [facility] Meningococcal B, OMV Unknown Completed [facility] Influenza Virus Vaccine Quad .5 mL IM 6+ MO (FLUZONE/FLULAVAL/FL UARIX) Unknown Completed [facility] SARS-COV-2 COVID-19 PFIZER VACCINE Unknown Completed [facility] SARS-COV-2 COVID-19 PFIZER VACCINE Unknown Completed [facility] SARS-COV-2 COVID-19 PFIZER VACCINE Unknown Completed [facility] SARS-COV-2 COVID-19 MIKE-SUCROSE VACCINE 12 YRS+, BIVALENT 0.3ML, IM, (PFIZER ARITA TOP) Unknown Completed [facility]PATITIS A [facility]ine [facility] Completed [facility] HEPATITIS A Unknown Completed [facility] DTAP Unknown Completed [facility] Proquad (MMR/VARICELLA) Unknown Completed [facility] Polio (IPV/OPV) Unknown Completed [facility] Influenza Virus Vaccine Unknown Completed [facility] Influenza Virus Vaccine Unknown Completed [facility] Influenza Virus Vaccine Unknown Completed [facility] Influenza Virus Vaccine Unknown Completed [facility] Influenza Virus Vaccine Unknown Completed [facility] Influenza Virus Vaccine Unknown Completed [facility] Influenza Virus Vaccine (3+ yrs) Unknown Completed [facility] Meningococcal Polysaccharide (groups A, C, Y and W-135) conjugate vaccine (MCV4P) Unknown Completed [facility] TDAP Unknown Completed [facility] Influenza Virus Vaccine (3+ yrs) Unknown Completed [facility] Influenza Virus Vaccine Quad IM 3+ YRS Unknown Completed [facility] HPV9 Unknown Completed [facility] HPV Unknown Completed [facility] HPV9 Unknown Completed [facility] Influenza Virus Vaccine Quad IM 3+ YRS Unknown Completed [facility] Meningococcal Polysaccharide (groups A, C, Y and W-135) conjugate vaccine (MCV4P) Unknown Completed [facility] Influenza Virus Vaccine Quad .5 mL IM 6+ MO (FLUZONE/FLULAVAL/FL UARIX) Unknown Completed [facility] Meningococcal B, OMV Unknown Completed [facility] Hep B, Adol or Pedi Dosage Unknown Completed [facility] Meningococcal B, OMV Unknown Completed [facility] Influenza Virus Vaccine Quad .5 mL IM 6+ MO (FLUZONE/FLULAVAL/FL UARIX) Unknown Completed [facility] SARS-COV-2 COVID-19 PFIZER VACCINE Unknown Completed [facility] SARS-COV-2 COVID-19 PFIZER VACCINE Unknown Completed [facility] SARS-COV-2 COVID-19 PFIZER VACCINE Unknown Completed [facility] SARS-COV-2 COVID-19 MIKE-SUCROSE VACCINE 12 YRS+, BIVALENT 0.3ML, IM, (PFIZER ARITA TOP) Unknown Completed [facility] HEPATITIS A Unknown Completed [facility] Influenza Virus Vaccine Unknown Completed [facility] HEPATITIS A Unknown Completed [facility] DTAP Unknown Completed [facility] Proquad (MMR/VARICELLA) Unknown Completed [facility] Polio (IPV/OPV) Unknown Completed [facility] Influenza Virus Vaccine Unknown Completed [facility] Influenza Virus Vaccine Unknown Completed [facility] Influenza Virus Vaccine Unknown Completed [facility] Influenza Virus Vaccine Unknown Completed [facility] Influenza Virus Vaccine Unknown Completed [facility] Influenza Virus Vaccine Unknown Completed [facility] Influenza Virus Vaccine (3+ yrs) Unknown Completed [facility] Meningococcal Polysaccharide (groups A, C, Y and W-135) conjugate vaccine (MCV4P) Unknown Completed [facility] TDAP Unknown Completed [facility] Influenza Virus Vaccine (3+ yrs) Unknown Completed [facility] Influenza Virus Vaccine Quad IM 3+ YRS Unknown Completed [facility] HPV9 Unknown Completed [facility] HPV Unknown Completed [facility] HPV9 Unknown Completed [facility] Influenza Virus Vaccine Quad IM 3+ YRS Unknown Completed [facility] Meningococcal Polysaccharide (groups A, C, Y and W-135) conjugate vaccine (MCV4P) Unknown Completed [facility] Influenza Virus Vaccine Quad .5 mL IM 6+ MO (FLUZONE/FLULAVAL/FL UARIX) Unknown Completed [facility] Meningococcal B, OMV Unknown Completed [facility] Hep B, Adol or Pedi Dosage Unknown Completed [facility] Meningococcal B, OMV Unknown Completed [facility] Influenza Virus Vaccine Quad .5 mL IM 6+ MO (FLUZONE/FLULAVAL/FL UARIX) Unknown Completed [facility] SARS-COV-2 COVID-19 PFIZER VACCINE Unknown Completed [facility] SARS-COV-2 COVID-19 PFIZER VACCINE Unknown Completed [facility] SARS-COV-2 COVID-19 PFIZER VACCINE Unknown Completed [facility] SARS-COV-2 COVID-19 MIKE-SUCROSE VACCINE 12 YRS+, BIVALENT 0.3ML, IM, (PFIZER ARITA TOP) Unknown Completed [facility] HEPATITIS A Unknown Completed [facility] Influenza Virus Vaccine Unknown Completed [facility] HEPATITIS A Unknown Completed [facility] DTAP Unknown Completed [facility] Proquad (MMR/VARICELLA) Unknown Completed [facility] Polio (IPV/OPV) Unknown Completed [facility] Influenza Virus Vaccine Unknown Completed [facility] Influenza Virus Vaccine Unknown Completed [facility] Influenza Virus Vaccine Unknown Completed [facility] Influenza Virus Vaccine Unknown Completed [facility] Influenza Virus Vaccine Unknown Completed [facility] Influenza Virus Vaccine Unknown Completed [facility] Influenza Virus Vaccine (3+ yrs) Unknown Completed [facility] Meningococcal Polysaccharide (groups A, C, Y and W-135) conjugate vaccine (MCV4P) Unknown Completed [facility] TDAP Unknown Completed [facility] Influenza Virus Vaccine (3+ yrs) Unknown Completed [facility] Influenza Virus Vaccine Quad IM 3+ YRS Unknown Completed [facility] HPV9 Unknown Completed [facility] HPV Unknown Completed [facility] HPV9 Unknown Completed [facility] Influenza Virus Vaccine Quad IM 3+ YRS Unknown Completed [facility] Meningococcal Polysaccharide (groups A, C, Y and W-135) conjugate vaccine (MCV4P) Unknown Completed [facility] Influenza Virus Vaccine Quad .5 mL IM 6+ MO (FLUZONE/FLULAVAL/FL UARIX) Unknown Completed [facility] Meningococcal B, OMV Unknown Completed [facility] Hep B, Adol or Pedi Dosage Unknown Completed [facility] Meningococcal B, OMV Unknown Completed [facility] Influenza Virus Vaccine Quad .5 mL IM 6+ MO (FLUZONE/FLULAVAL/FL UARIX) Unknown Completed [facility] SARS-COV-2 COVID-19 PFIZER VACCINE Unknown Completed [facility] SARS-COV-2 COVID-19 PFIZER VACCINE Unknown Completed [facility] SARS-COV-2 COVID-19 PFIZER VACCINE Unknown Completed [facility] SARS-COV-2 COVID-19 MIKE-SUCROSE VACCINE 12 YRS+, BIVALENT 0.3ML, IM, (PFIZER ARITA TOP) Unknown Completed [facility] HEPATITIS A Unknown Completed [facility] Influenza Virus Vaccine Unknown Completed [facility] HEPATITIS A Unknown Completed [facility] DTAP Unknown Completed [facility] Proquad (MMR/VARICELLA) Unknown Completed [facility] Polio (IPV/OPV) Unknown Completed [facility] Influenza Virus Vaccine Unknown Completed [facility] Influenza Virus Vaccine Unknown Completed [facility] Influenza Virus Vaccine Unknown Completed [facility] Influenza Virus Vaccine Unknown Completed [facility] Influenza Virus Vaccine Unknown Completed [facility] Influenza Virus Vaccine Unknown Completed [facility] Influenza Virus Vaccine (3+ yrs) Unknown Completed [facility] Meningococcal Polysaccharide (groups A, C, Y and W-135) conjugate vaccine (MCV4P) Unknown Completed [facility] TDAP Unknown Completed [facility] Influenza Virus Vaccine (3+ yrs) Unknown Completed [facility] Influenza Virus Vaccine Quad IM 3+ YRS Unknown Completed [facility] HPV9 Unknown Completed [facility] HPV Unknown Completed [facility] HPV9 Unknown Completed [facility] Influenza Virus Vaccine Quad IM 3+ YRS Unknown Completed [facility] Meningococcal Polysaccharide (groups A, C, Y and W-135) conjugate vaccine (MCV4P) Unknown Completed [facility] Influenza Virus Vaccine Quad .5 mL IM 6+ MO (FLUZONE/FLULAVAL/FL UARIX) Unknown Completed [facility] Meningococcal B, OMV Unknown Completed [facility] Hep B, Adol or Pedi Dosage Unknown Completed [facility] Meningococcal B, OMV Unknown Completed [facility] Influenza Virus Vaccine Quad .5 mL IM 6+ MO (FLUZONE/FLULAVAL/FL UARIX) Unknown Completed [facility] SARS-COV-2 COVID-19 PFIZER VACCINE Unknown Completed [facility] SARS-COV-2 COVID-19 PFIZER VACCINE Unknown Completed [facility] SARS-COV-2 COVID-19 PFIZER VACCINE Unknown Completed [facility] SARS-COV-2 COVID-19 MIKE-SUCROSE VACCINE 12 YRS+, BIVALENT 0.3ML, IM, (PFIZER ARITA TOP) Unknown Completed [facility] HEPATITIS A Unknown Completed [facility] Influenza Virus Vaccine Unknown Completed [facility] HEPATITIS A Unknown Completed [facility] DTAP Unknown Completed [facility] Proquad (MMR/VARICELLA) Unknown Completed [facility] Polio (IPV/OPV) Unknown Completed [facility] Influenza Virus Vaccine Unknown Completed [facility] Influenza Virus Vaccine Unknown Completed [facility] Influenza Virus Vaccine Unknown Completed [facility] Influenza Virus Vaccine Unknown Completed [facility] Influenza Virus Vaccine Unknown Completed [facility] Influenza Virus Vaccine Unknown Completed [facility] Influenza Virus Vaccine (3+ yrs) Unknown Completed [facility] Meningococcal Polysaccharide (groups A, C, Y and W-135) conjugate vaccine (MCV4P) Unknown Completed [facility] TDAP Unknown Completed [facility] Influenza Virus Vaccine (3+ yrs) Unknown Completed [facility] Influenza Virus Vaccine Quad IM 3+ YRS Unknown Completed [facility] HPV9 Unknown Completed [facility] HPV Unknown Completed [facility] HPV9 Unknown Completed [facility] Influenza Virus Vaccine Quad IM 3+ YRS Unknown Completed [facility] Meningococcal Polysaccharide (groups A, C, Y and W-135) conjugate vaccine (MCV4P) Unknown Completed [facility] Influenza Virus Vaccine Quad .5 mL IM 6+ MO (FLUZONE/FLULAVAL/FL UARIX) Unknown Completed [facility] Meningococcal B, OMV Unknown Completed [facility] Hep B, Adol or Pedi Dosage Unknown Completed [facility] Meningococcal B, OMV Unknown Completed [facility] Influenza Virus Vaccine Quad .5 mL IM 6+ MO (FLUZONE/FLULAVAL/FL UARIX) Unknown Completed [facility] SARS-COV-2 COVID-19 PFIZER VACCINE Unknown Completed [facility] SARS-COV-2 COVID-19 PFIZER VACCINE Unknown Completed [facility] SARS-COV-2 COVID-19 PFIZER VACCINE Unknown Completed [facility] SARS-COV-2 COVID-19 MIKE-SUCROSE VACCINE 12 YRS+, BIVALENT 0.3ML, IM, (PFIZER ARITA TOP) Unknown Completed [facility] DTAP Unknown Completed [facility] DTAP Unknown Completed [facility] DTAP Unknown Completed [facility] HIB 4 Dose Schedule Unknown Completed [facility] HIB 4 Dose Schedule Unknown Completed [facility] HIB 4 Dose Schedule Unknown Completed [facility] Hep B, Adol or Pedi Dosage Unknown Completed [facility] Hep B, Adol or Pedi Dosage Unknown Completed [facility] Pneumococcal 7 Conjugate, PCV7 (Prevnar7) Unknown Completed [facility] Pneumococcal 7 Conjugate, PCV7 (Prevnar7) Unknown Completed [facility] Polio (IPV/OPV) Unknown Completed [facility] Polio (IPV/OPV) Unknown Completed [facility] HIB 4 Dose Schedule Unknown Completed [facility] MMR Unknown Completed [facility] Pneumococcal 7 Conjugate, PCV7 (Prevnar7) Unknown Completed [facility] Polio (IPV/OPV) Unknown Completed [facility] Varicella (varivax)(chicken pox) Unknown Completed [facility] HEPATITIS A Unknown Completed [facility] Influenza Virus Vaccine Unknown Completed [facility] HEPATITIS A Unknown Completed [facility] DTAP Unknown Completed [facility] Proquad (MMR/VARICELLA) Unknown Completed [facility] Polio (IPV/OPV) Unknown Completed [facility] Influenza Virus Vaccine Unknown Completed [facility] Influenza Virus Vaccine Unknown Completed [facility] Influenza Virus Vaccine Unknown Completed [facility] Influenza Virus Vaccine Unknown Completed [facility] Influenza Virus Vaccine Unknown Completed [facility] Influenza Virus Vaccine Unknown Completed [facility] Influenza Virus Vaccine (3+ yrs) Unknown Completed [facility] Meningococcal Polysaccharide (groups A, C, Y and W-135) conjugate vaccine (MCV4P) Unknown Completed [facility] TDAP Unknown Completed [facility] Influenza Virus Vaccine (3+ yrs) Unknown Completed [facility] Influenza Virus Vaccine Quad IM 3+ YRS Unknown Completed [facility] HPV9 Unknown Completed [facility] HPV Unknown Completed [facility] HPV9 Unknown Completed [facility] Influenza Virus Vaccine Quad IM 3+ YRS Unknown Completed [facility] Meningococcal Polysaccharide (groups A, C, Y and W-135) conjugate vaccine (MCV4P) Unknown Completed [facility] Influenza Virus Vaccine Quad .5 mL IM 6+ MO (FLUZONE/FLULAVAL/FL UARIX) Unknown Completed [facility] Meningococcal B, OMV Unknown Completed [facility] Hep B, Adol or Pedi Dosage Unknown Completed [facility] Meningococcal B, OMV Unknown Completed [facility] Influenza Virus Vaccine Quad .5 mL IM 6+ MO (FLUZONE/FLULAVAL/FL UARIX) Unknown Completed [facility] SARS-COV-2 COVID-19 PFIZER VACCINE Unknown Completed [facility] SARS-COV-2 COVID-19 PFIZER VACCINE Unknown Completed [facility] SARS-COV-2 COVID-19 PFIZER VACCINE Unknown Completed [facility] SARS-COV-2 COVID-19 MIKE-SUCROSE VACCINE 12 YRS+, BIVALENT 0.3ML, IM, (PFIZER ARITA TOP) Unknown Completed [facility] DTAP Unknown Completed [facility] DTAP Unknown Completed [facility] DTAP Unknown Completed [facility] HIB 4 Dose Schedule Unknown Completed [facility] HIB 4 Dose Schedule Unknown Completed [facility] HIB 4 Dose Schedule Unknown Completed [facility] Hep B, Adol or Pedi Dosage Unknown Completed [facility] Hep B, Adol or Pedi Dosage Unknown Completed [facility] Pneumococcal 7 Conjugate, PCV7 (Prevnar7) Unknown Completed [facility] Pneumococcal 7 Conjugate, PCV7 (Prevnar7) Unknown Completed [facility] Polio (IPV/OPV) Unknown Completed [facility] Polio (IPV/OPV) Unknown Completed [facility] HIB 4 Dose Schedule Unknown Completed [facility] MMR Unknown Completed [facility] Pneumococcal 7 Conjugate, PCV7 (Prevnar7) Unknown Completed [facility] Polio (IPV/OPV) Unknown Completed [facility] Varicella (varivax)(chicken pox) Unknown Completed [facility] HEPATITIS A Unknown Completed [facility] Influenza Virus Vaccine Unknown Completed [facility] HEPATITIS A Unknown Completed [facility] DTAP Unknown Completed [facility] Proquad (MMR/VARICELLA) Unknown Completed [facility] Polio (IPV/OPV) Unknown Completed [facility] Influenza Virus Vaccine Unknown Completed [facility] Influenza Virus Vaccine Unknown Completed [facility] Influenza Virus Vaccine Unknown Completed [facility] Influenza Virus Vaccine Unknown Completed [facility] Influenza Virus Vaccine Unknown Completed [facility] Influenza Virus Vaccine Unknown Completed [facility] Influenza Virus Vaccine (3+ yrs) Unknown Completed [facility] Meningococcal Polysaccharide (groups A, C, Y and W-135) conjugate vaccine (MCV4P) Unknown Completed [facility] TDAP Unknown Completed [facility] Influenza Virus Vaccine (3+ yrs) Unknown Completed [facility] Influenza Virus Vaccine Quad IM 3+ YRS Unknown Completed [facility] HPV9 Unknown Completed [facility] HPV Unknown Completed [facility] HPV9 Unknown Completed [facility] Influenza Virus Vaccine Quad IM 3+ YRS Unknown Completed [facility] Meningococcal Polysaccharide (groups A, C, Y and W-135) conjugate vaccine (MCV4P) Unknown Completed [facility] Influenza Virus Vaccine Quad .5 mL IM 6+ MO (FLUZONE/FLULAVAL/FL UARIX) Unknown Completed [facility] Meningococcal B, OMV Unknown Completed [facility] Hep B, Adol or Pedi Dosage Unknown Completed [facility] Meningococcal B, OMV Unknown Completed [facility] Influenza Virus Vaccine Quad .5 mL IM 6+ MO (FLUZONE/FLULAVAL/FL UARIX) Unknown Completed [facility] SARS-COV-2 COVID-19 PFIZER VACCINE Unknown Completed [facility] SARS-COV-2 COVID-19 PFIZER VACCINE Unknown Completed [facility] SARS-COV-2 COVID-19 PFIZER VACCINE Unknown Completed [facility] SARS-COV-2 COVID-19 MIKE-SUCROSE VACCINE 12 YRS+, BIVALENT 0.3ML, IM, (PFIZER ARITA TOP) Unknown Completed [facility] DTAP Unknown Completed [facility] DTAP Unknown Completed [facility] DTAP Unknown Completed [facility] HIB 4 Dose Schedule Unknown Completed [facility] HIB 4 Dose Schedule Unknown Completed [facility] HIB 4 Dose Schedule Unknown Completed [facility] Hep B, Adol or Pedi Dosage Unknown Completed [facility] Hep B, Adol or Pedi Dosage Unknown Completed [facility] Pneumococcal 7 Conjugate, PCV7 (Prevnar7) Unknown Completed [facility] Pneumococcal 7 Conjugate, PCV7 (Prevnar7) Unknown Completed [facility] Polio (IPV/OPV) Unknown Completed [facility] Polio (IPV/OPV) Unknown Completed [facility] HIB 4 Dose Schedule Unknown Completed [facility] MMR Unknown Completed [facility] Pneumococcal 7 Conjugate, PCV7 (Prevnar7) Unknown Completed [facility] Polio (IPV/OPV) Unknown Completed [facility] Varicella (varivax)(chicken pox) Unknown Completed [facility] HEPATITIS A Unknown Completed [facility] Influenza Virus Vaccine Unknown Completed [facility] HEPATITIS A Unknown Completed [facility] DTAP Unknown Completed [facility] Proquad (MMR/VARICELLA) Unknown Completed [facility] Polio (IPV/OPV) Unknown Completed [facility] Influenza Virus Vaccine Unknown Completed [facility] Influenza Virus Vaccine Unknown Completed [facility] Influenza Virus Vaccine Unknown Completed [facility] Influenza Virus Vaccine Unknown Completed [facility] Influenza Virus Vaccine Unknown Completed [facility] Influenza Virus Vaccine Unknown Completed [facility] Influenza Virus Vaccine (3+ yrs) Unknown Completed [facility] Meningococcal Polysaccharide (groups A, C, Y and W-135) conjugate vaccine (MCV4P) Unknown Completed [facility] TDAP Unknown Completed [facility] Influenza Virus Vaccine (3+ yrs) Unknown Completed [facility] Influenza Virus Vaccine Quad IM 3+ YRS Unknown Completed [facility] HPV9 Unknown Completed [facility] HPV Unknown Completed [facility] HPV9 Unknown Completed [facility] Influenza Virus Vaccine Quad IM 3+ YRS Unknown Completed [facility] Meningococcal Polysaccharide (groups A, C, Y and W-135) conjugate vaccine (MCV4P) Unknown Completed [facility] Influenza Virus Vaccine Quad .5 mL IM 6+ MO (FLUZONE/FLULAVAL/FL UARIX) Unknown Completed [facility] Meningococcal B, OMV Unknown Completed [facility] Hep B, Adol or Pedi Dosage Unknown Completed [facility] Meningococcal B, OMV Unknown Completed [facility] Influenza Virus Vaccine Quad .5 mL IM 6+ MO (FLUZONE/FLULAVAL/FL UARIX) Unknown Completed [facility] SARS-COV-2 COVID-19 PFIZER VACCINE Unknown Completed [facility] SARS-COV-2 COVID-19 PFIZER VACCINE Unknown Completed [facility] SARS-COV-2 COVID-19 PFIZER VACCINE Unknown Completed [facility] SARS-COV-2 COVID-19 MIKE-SUCROSE VACCINE 12 YRS+, BIVALENT 0.3ML, IM, (PFIZER ARITA TOP) Unknown Completed [facility] HEPATITIS A Unknown [facility] Influenza Virus Vaccine Unknown Completed [facility] HEPATITIS A Unknown [facility] DTAP Unknown Completed [facility] Proquad (MMR/VARICELLA) Unknown Completed [facility] Polio (IPV/OPV) Unknown Completed [facility] Influenza Virus Vaccine Unknown Completed [facility] Influenza Virus Vaccine Unknown Completed [facility] Influenza Virus Vaccine Unknown Completed [facility] Influenza Virus Vaccine Unknown Completed [facility] Influenza Virus Vaccine Unknown Completed [facility] Influenza Virus Vaccine Unknown Completed [facility] Influenza Virus Vaccine (3+ yrs) Unknown Completed [facility] Meningococcal Polysaccharide (groups A, C, Y and W-135) conjugate vaccine (MCV4P) Unknown Completed [facility] TDAP Unknown Completed [facility] Influenza Virus Vaccine (3+ yrs) Unknown Completed [facility] Influenza Virus Vaccine Quad IM 3+ YRS Unknown Completed [facility] HPV9 Unknown Completed [facility] HPV Unknown Completed [facility] HPV9 Unknown Completed [facility] Influenza Virus Vaccine Quad IM 3+ YRS Unknown Completed [facility] Meningococcal Polysaccharide (groups A, C, Y and W-135) conjugate vaccine (MCV4P) Unknown Completed [facility] Influenza Virus Vaccine Quad .5 mL IM 6+ MO (FLUZONE/FLULAVAL/FL UARIX) Unknown Completed [facility] Meningococcal B, OMV Unknown Completed [facility] Hep B, Adol or Pedi Dosage Unknown Completed [facility] Meningococcal B, OMV Unknown Completed [facility] Influenza Virus Vaccine Quad .5 mL IM 6+ MO (FLUZONE/FLULAVAL/FL UARIX) Unknown Completed [facility] SARS-COV-2 COVID-19 PFIZER VACCINE Unknown Completed [facility] SARS-COV-2 COVID-19 PFIZER VACCINE Unknown Completed [facility] SARS-COV-2 COVID-19 PFIZER VACCINE Unknown Completed [facility] SARS-COV-2 COVID-19 MIKE-SUCROSE VACCINE 12 YRS+, BIVALENT 0.3ML, IM, (PFIZER ARITA TOP) Unknown Completed [facility] HEPATITIS A Unknown Completed [facility] Influenza Virus Vaccine Unknown Completed [facility] HEPATITIS A Unknown Completed [facility] DTAP Unknown Completed [facility] Proquad (MMR/VARICELLA) Unknown Completed [facility] Polio (IPV/OPV) Unknown Completed [facility] Influenza Virus Vaccine Unknown Completed [facility] Influenza Virus Vaccine Unknown Completed [facility] Influenza Virus Vaccine Unknown Completed [facility] Influenza Virus Vaccine Unknown Completed [facility] Influenza Virus Vaccine Unknown Completed [facility] Influenza Virus Vaccine Unknown Completed [facility] Influenza Virus Vaccine (3+ yrs) Unknown Completed [facility] Meningococcal Polysaccharide (groups A, C, Y and W-135) conjugate vaccine (MCV4P) Unknown Completed [facility] TDAP Unknown Completed [facility] Influenza Virus Vaccine (3+ yrs) Unknown Completed [facility] Influenza Virus Vaccine Quad IM 3+ YRS Unknown Completed [facility] HPV9 Unknown Completed [facility] HPV Unknown Completed [facility] HPV9 Unknown Completed [facility] Influenza Virus Vaccine Quad IM 3+ YRS Unknown Completed [facility] Meningococcal Polysaccharide (groups A, C, Y and W-135) conjugate vaccine (MCV4P) Unknown Completed [facility] Influenza Virus Vaccine Quad .5 mL IM 6+ MO (FLUZONE/FLULAVAL/FL UARIX) Unknown Completed [facility] Meningococcal B, OMV Unknown Completed [facility] Hep B, Adol or Pedi Dosage Unknown Completed [facility] Meningococcal B, OMV Unknown Completed [facility] Influenza Virus Vaccine Quad .5 mL IM 6+ MO (FLUZONE/FLULAVAL/FL UARIX) Unknown Completed [facility] SARS-COV-2 COVID-19 PFIZER VACCINE Unknown Completed [facility] SARS-COV-2 COVID-19 PFIZER VACCINE Unknown Completed [facility] SARS-COV-2 COVID-19 PFIZER VACCINE Unknown Completed [facility] SARS-COV-2 COVID-19 MIKE-SUCROSE VACCINE 12 YRS+, BIVALENT 0.3ML, IM, (PFIZER ARITA TOP) Unknown Completed [facility] HEPATITIS A Unknown [facility] Influenza Virus Vaccine Unknown Completed [facility] HEPATITIS A Unknown Completed [facility] DTAP Unknown Completed [facility] Proquad (MMR/VARICELLA) Unknown Completed [facility] Polio (IPV/OPV) Unknown Completed [facility] Influenza Virus Vaccine Unknown Completed [facility] Influenza Virus Vaccine Unknown Completed [facility] Influenza Virus Vaccine Unknown Completed [facility] Influenza Virus Vaccine Unknown Completed [facility] Influenza Virus Vaccine Unknown Completed [facility] Influenza Virus Vaccine Unknown Completed [facility] Influenza Virus Vaccine (3+ yrs) Unknown Completed [facility] Meningococcal Polysaccharide (groups A, C, Y and W-135) conjugate vaccine (MCV4P) Unknown Completed [facility] TDAP Unknown Completed [facility] Influenza Virus Vaccine (3+ yrs) Unknown Completed [facility] Influenza Virus Vaccine Quad IM 3+ YRS Unknown Completed [facility] HPV9 Unknown Completed [facility] HPV Unknown Completed [facility] HPV9 Unknown Completed [facility] Influenza Virus Vaccine Quad IM 3+ YRS Unknown Completed [facility] Meningococcal Polysaccharide (groups A, C, Y and W-135) conjugate vaccine (MCV4P) Unknown Completed [facility] Influenza Virus Vaccine Quad .5 mL IM 6+ MO (FLUZONE/FLULAVAL/FL UARIX) Unknown Completed [facility] Meningococcal B, OMV Unknown Completed [facility] Hep B, Adol or Pedi Dosage Unknown Completed [facility] Meningococcal B, OMV Unknown Completed [facility] Influenza Virus Vaccine Quad .5 mL IM 6+ MO (FLUZONE/FLULAVAL/FL UARIX) Unknown Completed [facility] SARS-COV-2 COVID-19 PFIZER VACCINE Unknown Completed [facility] SARS-COV-2 COVID-19 PFIZER VACCINE Unknown Completed [facility] SARS-COV-2 COVID-19 PFIZER VACCINE Unknown Completed [facility] SARS-COV-2 COVID-19 MIKE-SUCROSE VACCINE 12 YRS+, BIVALENT 0.3ML, IM, (PFIZER ARITA TOP) Unknown Completed [facility] DTAP Unknown Completed [facility] DTAP Unknown Completed [facility] DTAP Unknown Completed [facility] HIB 4 Dose Schedule Unknown Completed [facility] HIB 4 Dose Schedule Unknown Completed [facility] HIB 4 Dose Schedule Unknown Completed [facility] Hep B, Adol or Pedi Dosage Unknown Completed [facility] Hep B, Adol or Pedi Dosage Unknown Completed [facility] Pneumococcal 7 Conjugate, PCV7 (Prevnar7) Unknown Completed [facility] Pneumococcal 7 Conjugate, PCV7 (Prevnar7) Unknown Completed [facility] Polio (IPV/OPV) Unknown Completed [facility] Polio (IPV/OPV) Unknown Completed [facility] HIB 4 Dose Schedule Unknown Completed [facility] MMR Unknown Completed [facility] Pneumococcal 7 Conjugate, PCV7 (Prevnar7) Unknown Completed [facility] Polio (IPV/OPV) Unknown Completed [facility] Varicella (varivax)(chicken pox) Unknown Completed [facility] HEPATITIS A Unknown Completed [facility] Influenza Virus Vaccine Unknown Completed [facility] HEPATITIS A Unknown Completed [facility] DTAP Unknown Completed [facility] Proquad (MMR/VARICELLA) Unknown Completed [facility] Polio (IPV/OPV) Unknown Completed [facility] Influenza Virus Vaccine Unknown Completed [facility] Influenza Virus Vaccine Unknown Completed [facility] Influenza Virus Vaccine Unknown Completed [facility] Influenza Virus Vaccine Unknown Completed [facility] Influenza Virus Vaccine Unknown Completed [facility] Influenza Virus Vaccine Unknown Completed [facility] Influenza Virus Vaccine (3+ yrs) Unknown Completed [facility] Meningococcal Polysaccharide (groups A, C, Y and W-135) conjugate vaccine (MCV4P) Unknown Completed [facility] TDAP Unknown Completed [facility] Influenza Virus Vaccine (3+ yrs) Unknown Completed [facility] Influenza Virus Vaccine Quad IM 3+ YRS Unknown Completed [facility] HPV9 Unknown Completed [facility] HPV Unknown Completed [facility] HPV9 Unknown Completed [facility] Influenza Virus Vaccine Quad IM 3+ YRS Unknown Completed [facility] Meningococcal Polysaccharide (groups A, C, Y and W-135) conjugate vaccine (MCV4P) Unknown Completed [facility] Influenza Virus Vaccine Quad .5 mL IM 6+ MO (FLUZONE/FLULAVAL/FL UARIX) Unknown Completed [facility] Meningococcal B, OMV Unknown Completed [facility] Hep B, Adol or Pedi Dosage Unknown Completed [facility] Meningococcal B, OMV Unknown Completed [facility] Influenza Virus Vaccine Quad .5 mL IM 6+ MO (FLUZONE/FLULAVAL/FL UARIX) Unknown Completed [facility] SARS-COV-2 COVID-19 PFIZER VACCINE Unknown Completed [facility] SARS-COV-2 COVID-19 PFIZER VACCINE Unknown Completed [facility] SARS-COV-2 COVID-19 PFIZER VACCINE Unknown Completed [facility] SARS-COV-2 COVID-19 MIKE-SUCROSE VACCINE 12 YRS+, BIVALENT 0.3ML, IM, (PFIZER ARITA TOP) Unknown Completed [facility] DTAP Unknown Completed [facility] DTAP Unknown Completed [facility] DTAP Unknown Completed [facility] HIB 4 Dose Schedule Unknown Completed [facility] HIB 4 Dose Schedule Unknown Completed [facility] HIB 4 Dose Schedule Unknown Completed [facility] Hep B, Adol or Pedi Dosage Unknown Completed [facility] Hep B, Adol or Pedi Dosage Unknown Completed [facility] Pneumococcal 7 Conjugate, PCV7 (Prevnar7) Unknown Completed [facility] Pneumococcal 7 Conjugate, PCV7 (Prevnar7) Unknown Completed [facility] Polio (IPV/OPV) Unknown Completed [facility] Polio (IPV/OPV) Unknown Completed [facility] HIB 4 Dose Schedule Unknown Completed [facility] MMR Unknown Completed [facility] Pneumococcal 7 Conjugate, PCV7 (Prevnar7) Unknown Completed [facility] Polio (IPV/OPV) Unknown Completed [facility] Varicella (varivax)(chicken pox) Unknown Completed [facility] HEPATITIS A Unknown Completed [facility] Influenza Virus Vaccine Unknown Completed [facility] HEPATITIS A Unknown Completed [facility] DTAP Unknown Completed [facility] Proquad (MMR/VARICELLA) Unknown Completed [facility] Polio (IPV/OPV) Unknown Completed [facility] Influenza Virus Vaccine Unknown Completed [facility] Influenza Virus Vaccine Unknown Completed [facility] Influenza Virus Vaccine Unknown Completed [facility] Influenza Virus Vaccine Unknown Completed [facility] Influenza Virus Vaccine Unknown Completed [facility] Influenza Virus Vaccine Unknown Completed [facility] Influenza Virus Vaccine (3+ yrs) Unknown Completed [facility] Meningococcal Polysaccharide (groups A, C, Y and W-135) conjugate vaccine (MCV4P) Unknown Completed [facility] TDAP Unknown Completed [facility] Influenza Virus Vaccine (3+ yrs) Unknown Completed [facility] Influenza Virus Vaccine Quad IM 3+ YRS Unknown Completed [facility] HPV9 Unknown Completed [facility] HPV Unknown Completed [facility] HPV9 Unknown Completed [facility] Influenza Virus Vaccine Quad IM 3+ YRS Unknown Completed [facility] Meningococcal Polysaccharide (groups A, C, Y and W-135) conjugate vaccine (MCV4P) Unknown Completed [facility] Influenza Virus Vaccine Quad .5 mL IM 6+ MO (FLUZONE/FLULAVAL/FL UARIX) Unknown Completed [facility] Meningococcal B, OMV Unknown Completed [facility] Hep B, Adol or Pedi Dosage Unknown Completed [facility] Meningococcal B, OMV Unknown Completed [facility] Influenza Virus Vaccine Quad .5 mL IM 6+ MO (FLUZONE/FLULAVAL/FL UARIX) Unknown Completed [facility] SARS-COV-2 COVID-19 PFIZER VACCINE Unknown Completed [facility] SARS-COV-2 COVID-19 PFIZER VACCINE Unknown Completed [facility] SARS-COV-2 COVID-19 PFIZER VACCINE Unknown Completed [facility] SARS-COV-2 COVID-19 MIKE-SUCROSE VACCINE 12 YRS+, BIVALENT 0.3ML, IM, (PFIZER ARITA TOP) Unknown Completed [facility] DTAP Unknown Completed [facility] DTAP Unknown Completed [facility] DTAP Unknown Completed [facility] HIB 4 Dose Schedule Unknown Completed [facility] HIB 4 Dose Schedule Unknown Completed [facility] HIB 4 Dose Schedule Unknown Completed [facility] Hep B, Adol or Pedi Dosage Unknown Completed [facility] Hep B, Adol or Pedi Dosage Unknown Completed [facility] Pneumococcal 7 Conjugate, PCV7 (Prevnar7) Unknown Completed [facility] Pneumococcal 7 Conjugate, PCV7 (Prevnar7) Unknown Completed [facility] Polio (IPV[facility]OPV) [facility] HIB 4 Dose Schedule Unknown Completed [facility] MMR Unknown Completed [facility] Pneumococcal 7 Conjugate, PCV7 (Prevnar7) Unknown Completed [facility] Polio (IPV/OPV) Unknown Completed [facility] Varicella (varivax)(chicken pox) Unknown Completed [facility] HEPATITIS A Unknown Completed [facility] Influenza Virus Vaccine Unknown Completed [facility] HEPATITIS A Unknown Completed [facility] DTAP Unknown Completed [facility] Proquad (MMR/VARICELLA) Unknown Completed [facility] Polio (IPV/OPV) Unknown Completed [facility] Influenza Virus Vaccine Unknown Completed [facility] Influenza Virus Vaccine Unknown Completed [facility] Influenza Virus Vaccine Unknown Completed [facility] Influenza Virus Vaccine Unknown Completed [facility] Influenza Virus Vaccine Unknown Completed [facility] Influenza Virus Vaccine Unknown Completed [facility] Influenza Virus Vaccine (3+ yrs) Unknown Completed [facility] Meningococcal Polysaccharide (groups A, C, Y and W-135) conjugate vaccine (MCV4P) Unknown Completed [facility] TDAP Unknown Completed [facility] Influenza Virus Vaccine (3+ yrs) Unknown Completed [facility] Influenza Virus Vaccine Quad IM 3+ YRS Unknown Completed [facility] HPV9 Unknown Completed [facility] HPV Unknown Completed [facility] HPV9 Unknown Completed [facility] Influenza Virus Vaccine Quad IM 3+ YRS Unknown Completed [facility] Meningococcal Polysaccharide (groups A, C, Y and W-135) conjugate vaccine (MCV4P) Unknown Completed [facility] Influenza Virus Vaccine Quad .5 mL IM 6+ MO (FLUZONE/FLULAVAL/FL UARIX) Unknown Completed [facility] Meningococcal B, OMV Unknown Completed [facility] Hep B, Adol or Pedi Dosage Unknown Completed [facility] Meningococcal B, OMV Unknown Completed [facility] Influenza Virus Vaccine Quad .5 mL IM 6+ MO (FLUZONE/FLULAVAL/FL UARIX) Unknown Completed [facility] SARS-COV-2 COVID-19 PFIZER VACCINE Unknown Completed [facility] SARS-COV-2 COVID-19 PFIZER VACCINE Unknown Completed [facility] SARS-COV-2 COVID-19 PFIZER VACCINE Unknown Completed [facility] SARS-COV-2 COVID-19 MIKE-SUCROSE VACCINE 12 YRS+, BIVALENT 0.3ML, IM, (PFIZER ARITA TOP) Unknown Completed [facility] DTAP Unknown Completed [facility] DTAP Unknown Completed [facility] DTAP Unknown Completed [facility] HIB 4 Dose Schedule Unknown Completed [facility] HIB 4 Dose Schedule Unknown Completed [facility] HIB 4 Dose Schedule Unknown Completed [facility] Hep B, Adol or Pedi Dosage Unknown Completed [facility] Hep B, Adol or Pedi Dosage Unknown Completed [facility] Pneumococcal 7 Conjugate, PCV7 (Prevnar7) Unknown Completed [facility] Pneumococcal 7 Conjugate, PCV7 (Prevnar7) Unknown Completed [facility] Polio (IPV/OPV) Unknown Completed [facility] Polio (IPV/OPV) Unknown Completed [facility] HIB 4 Dose Schedule Unknown Completed [facility] MMR Unknown Completed [facility] Pneumococcal 7 Conjugate, PCV7 (Prevnar7) Unknown Completed [facility] Polio (IPV/OPV) Unknown Completed [facility] Varicella (varivax)(chicken pox) Unknown Completed [facility] HEPATITIS A Unknown Completed [facility] Influenza Virus Vaccine Unknown Completed [facility] HEPATITIS A Unknown Completed [facility] DTAP Unknown Completed [facility] Proquad (MMR/VARICELLA) Unknown Completed [facility] Polio (IPV/OPV) Unknown Completed [facility] Influenza Virus Vaccine Unknown Completed [facility] Influenza Virus Vaccine Unknown Completed [facility] Influenza Virus Vaccine Unknown Completed [facility] Influenza Virus Vaccine Unknown Completed [facility] Influenza Virus Vaccine Unknown Completed [facility] Influenza Virus Vaccine Unknown Completed [facility] Influenza Virus Vaccine (3+ yrs) Unknown Completed [facility] Meningococcal Polysaccharide (groups A, C, Y and W-135) conjugate vaccine (MCV4P) Unknown Completed [facility] TDAP Unknown Completed [facility] Influenza Virus Vaccine (3+ yrs) Unknown Completed [facility] Influenza Virus Vaccine Quad IM 3+ YRS Unknown Completed [facility] HPV9 Unknown Completed [facility] HPV Unknown Completed [facility] HPV9 Unknown Completed [facility] Influenza Virus Vaccine Quad IM 3+ YRS Unknown Completed [facility] Meningococcal Polysaccharide (groups A, C, Y and W-135) conjugate vaccine (MCV4P) Unknown Completed [facility] Influenza Virus Vaccine Quad .5 mL IM 6+ MO (FLUZONE/FLULAVAL/FL UARIX) Unknown Completed [facility] Meningococcal B, OMV Unknown Completed [facility] Hep B, Adol or Pedi Dosage Unknown Completed [facility] Meningococcal B, OMV Unknown Completed [facility] Influenza Virus Vaccine Quad .5 mL IM 6+ MO (FLUZONE/FLULAVAL/FL UARIX) Unknown Completed [facility] SARS-COV-2 COVID-19 PFIZER VACCINE Unknown Completed [facility] SARS-COV-2 COVID-19 PFIZER VACCINE Unknown Completed [facility] SARS-COV-2 COVID-19 PFIZER VACCINE Unknown Completed [facility] SARS-COV-2 COVID-19 MIKE-SUCROSE VACCINE 12 YRS+, BIVALENT 0.3ML, IM, (PFIZER ARITA TOP) Unknown Completed [facility] DTAP Unknown Completed [facility] DTAP Unknown Completed [facility] DTAP Unknown Completed [facility] HIB 4 Dose Schedule Unknown Completed [facility] HIB 4 Dose Schedule Unknown Completed [facility] HIB 4 Dose Schedule Unknown Completed [facility] Hep B, Adol or Pedi Dosage Unknown Completed [facility] Hep B, Adol or Pedi Dosage Unknown Completed [facility] Pneumococcal 7 Conjugate, PCV7 (Prevnar7) Unknown Completed [facility] Pneumococcal 7 Conjugate, PCV7 (Prevnar7) Unknown Completed [facility] Polio (IPV/OPV) [facility] HIB 4 Dose Schedule Unknown Completed [facility] MMR Unknown Completed [facility] Pneumococcal 7 Conjugate, PCV7 (Prevnar7) Unknown Completed [facility] Polio (IPV/OPV) Unknown Completed [facility] Varicella (varivax)(chicken pox) Unknown Completed [facility] HEPATITIS A Unknown Completed [facility] Influenza Virus Vaccine Unknown Completed [facility] Proquad (MMR/VARICELLA) Unknown Completed [facility] Polio (IPV/OPV) Unknown Completed [facility] Influenza Virus Vaccine Unknown Completed [facility] Influenza Virus Vaccine Unknown Completed [facility] Influenza Virus Vaccine Unknown Completed [facility] Influenza Virus Vaccine Unknown Completed [facility] Influenza Virus Vaccine Unknown Completed [facility] Influenza Virus Vaccine Unknown Completed [facility] Influenza Virus Vaccine (3+ yrs) Unknown Completed [facility] Meningococcal Polysaccharide (groups A, C, Y and W-135) conjugate vaccine (MCV4P) Unknown Completed [facility] TDAP Unknown Completed [facility] Influenza Virus Vaccine (3+ yrs) Unknown Completed [facility] Influenza Virus Vaccine Quad IM 3+ YRS Unknown Completed [facility] HPV9 Unknown Completed [facility] HPV Unknown Completed [facility] HPV9 Unknown Completed [facility] Influenza Virus Vaccine Quad IM 3+ YRS Unknown Completed [facility] Meningococcal Polysaccharide (groups A, C, Y and W-135) conjugate vaccine (MCV4P) Unknown Completed [facility] Influenza Virus Vaccine Quad .5 mL IM 6+ MO (FLUZONE/FLULAVAL/FL UARIX) Unknown Completed [facility] Meningococcal B, OMV Unknown Completed [facility] Hep B, Adol or Pedi Dosage Unknown Completed [facility] Meningococcal B, OMV Unknown Completed [facility] Influenza Virus Vaccine Quad .5 mL IM 6+ MO (FLUZONE/FLULAVAL/FL UARIX) Unknown Completed [facility] SARS-COV-2 COVID-19 PFIZER VACCINE Unknown Completed [facility] SARS-COV-2 COVID-19 PFIZER VACCINE Unknown Completed [facility] SARS-COV-2 COVID-19 PFIZER VACCINE Unknown Completed [facility] SARS-COV-2 COVID-19 MIKE-SUCROSE VACCINE 12 YRS+, BIVALENT 0.3ML, IM, (PFIZER ARITA TOP) Unknown Completed [facility] HEPATITIS A Unknown Completed [facility] Influenza Virus Vaccine Unknown Completed [facility] HEPATITIS A Unknown Completed [facility] DTAP Unknown Completed [facility] Proquad (MMR/VARICELLA) Unknown Completed [facility] Polio (IPV/OPV) Unknown Completed [facility] Influenza Virus Vaccine Unknown Completed [facility] Influenza Virus Vaccine Unknown Completed [facility] Influenza Virus Vaccine Unknown Completed [facility] Influenza Virus Vaccine Unknown Completed [facility] Influenza Virus Vaccine Unknown Completed [facility] Influenza Virus Vaccine Unknown Completed [facility] Influenza Virus Vaccine (3+ yrs) Unknown Completed [facility] Meningococcal Polysaccharide (groups A, C, Y and W-135) conjugate vaccine (MCV4P) Unknown Completed [facility] TDAP Unknown Completed [facility] Influenza Virus Vaccine (3+ yrs) Unknown Completed [facility] Influenza Virus Vaccine Quad IM 3+ YRS Unknown Completed [facility] HPV9 Unknown Completed [facility] HPV Unknown Completed [facility] HPV9 Unknown Completed [facility] Influenza Virus Vaccine Quad IM 3+ YRS Unknown Completed [facility] Meningococcal Polysaccharide (groups A, C, Y and W-135) conjugate vaccine (MCV4P) Unknown Completed [facility] Influenza Virus Vaccine Quad .5 mL IM 6+ MO (FLUZONE/FLULAVAL/FL UARIX) Unknown Completed [facility] Meningococcal B, OMV Unknown Completed [facility] Hep B, Adol or Pedi Dosage Unknown Completed [facility] Meningococcal B, OMV Unknown Completed [facility] Influenza Virus Vaccine Quad .5 mL IM 6+ MO (FLUZONE/FLULAVAL/FL UARIX) Unknown Completed [facility] SARS-COV-2 COVID-19 PFIZER VACCINE Unknown Completed [facility] SARS-COV-2 COVID-19 PFIZER VACCINE Unknown Completed [facility] SARS-COV-2 COVID-19 PFIZER VACCINE Unknown Completed [facility] SARS-COV-2 COVID-19 MIKE-SUCROSE VACCINE 12 YRS+, BIVALENT 0.3ML, IM, (PFIZER ARITA TOP) Unknown Completed [facility] DTAP Unknown Completed [facility] DTAP Unknown Completed [facility] DTAP Unknown Completed [facility] HIB 4 Dose Schedule Unknown Completed [facility] HIB 4 Dose Schedule Unknown Completed [facility] HIB 4 Dose Schedule Unknown Completed [facility] Hep B, Adol or Pedi Dosage Unknown Completed [facility] Hep B, Adol or Pedi Dosage Unknown Completed [facility] Pneumococcal 7 Conjugate, PCV7 (Prevnar7) Unknown Completed [facility] Pneumococcal 7 Conjugate, PCV7 (Prevnar7) Unknown Completed [facility] Polio (IPV/OPV) Unknown Completed [facility] Polio (IPV/OPV) Unknown Completed [facility] HIB 4 Dose Schedule Unknown Completed [facility] MMR Unknown Completed [facility] Pneumococcal 7 Conjugate, PCV7 (Prevnar7) Unknown Completed [facility] Polio (IPV/OPV) Unknown Completed [facility] Varicella (varivax)(chicken pox) Unknown Completed [facility] HEPATITIS A Unknown Completed [facility] Influenza Virus Vaccine Unknown Completed [facility] HEPATITIS A Unknown Completed [facility] DTAP Unknown Completed [facility] Proquad (MMR/VARICELLA) Unknown Completed [facility] Polio (IPV/OPV) Unknown Completed [facility] Influenza Virus Vaccine Unknown Completed [facility] Influenza Virus Vaccine Unknown Completed [facility] Influenza Virus Vaccine Unknown Completed [facility] Influenza Virus Vaccine Unknown Completed [facility] Influenza Virus Vaccine Unknown Completed [facility] Influenza Virus Vaccine Unknown Completed [facility] Influenza Virus Vaccine (3+ yrs) Unknown Completed [facility] Meningococcal Polysaccharide (groups A, C, Y and W-135) conjugate vaccine (MCV4P) Unknown Completed [facility] TDAP Unknown Completed [facility] Influenza Virus Vaccine (3+ yrs) Unknown Completed [facility] Influenza Virus Vaccine Quad IM 3+ YRS Unknown Completed [facility] HPV9 Unknown Completed [facility] HPV Unknown Completed [facility] HPV9 Unknown Completed [facility] Influenza Virus Vaccine Quad IM 3+ YRS Unknown Completed [facility] Meningococcal Polysaccharide (groups A, C, Y and W-135) conjugate vaccine (MCV4P) Unknown Completed [facility] Influenza Virus Vaccine Quad .5 mL IM 6+ MO (FLUZONE/FLULAVAL/FL UARIX) Unknown Completed [facility] Meningococcal B, OMV Unknown Completed [facility] Hep B, Adol or Pedi Dosage Unknown Completed [facility] Meningococcal B, OMV Unknown Completed [facility] Influenza Virus Vaccine Quad .5 mL IM 6+ MO (FLUZONE/FLULAVAL/FL UARIX) Unknown Completed [facility] SARS-COV-2 COVID-19 PFIZER VACCINE Unknown Completed [facility] SARS-COV-2 COVID-19 PFIZER VACCINE Unknown Completed [facility] SARS-COV-2 COVID-19 PFIZER VACCINE Unknown Completed [facility] SARS-COV-2 COVID-19 MIKE-SUCROSE VACCINE 12 YRS+, BIVALENT 0.3ML, IM, (PFIZER ARITA TOP) Unknown Completed [facility] DTAP Unknown Completed [facility] DTAP Unknown Completed [facility] DTAP Unknown Completed [facility] HIB 4 Dose Schedule Unknown Completed [facility] HIB 4 Dose Schedule Unknown Completed [facility] HIB 4 Dose Schedule Unknown Completed [facility] Hep B, Adol or Pedi Dosage Unknown Completed [facility] Hep B, Adol or Pedi Dosage Unknown Completed [facility] Pneumococcal 7 Conjugate, PCV7 (Prevnar7) Unknown Completed [facility] Pneumococcal 7 Conjugate, PCV7 (Prevnar7) Unknown Completed [facility] Polio (IPV/OPV) Unknown Completed [facility] Polio (IPV/OPV) Unknown Completed [facility] HIB 4 Dose Schedule Unknown Completed [facility] MMR Unknown Completed [facility] Pneumococcal 7 Conjugate, PCV7 (Prevnar7) Unknown Completed [facility] Polio (IPV/OPV) Unknown Completed [facility] Varicella (varivax)(chicken pox) Unknown Completed [facility] HEPATITIS A Unknown Completed [facility] Influenza Virus Vaccine Unknown Completed [facility] HEPATITIS A Unknown Completed [facility] DTAP Unknown Completed [facility] Proquad (MMR/VARICELLA) Unknown Completed [facility] Polio (IPV/OPV) Unknown Completed [facility] Influenza Virus Vaccine Unknown Completed [facility] Influenza Virus Vaccine Unknown Completed [facility] Influenza Virus Vaccine Unknown Completed [facility] Influenza Virus Vaccine Unknown Completed [facility] Influenza Virus Vaccine Unknown Completed [facility] Influenza Virus Vaccine Unknown Completed [facility] Influenza Virus Vaccine (3+ yrs) Unknown Completed [facility] Meningococcal Polysaccharide (groups A, C, Y and W-135) conjugate vaccine (MCV4P) Unknown Completed [facility] TDAP Unknown Completed [facility] Influenza Virus Vaccine (3+ yrs) Unknown Completed [facility] Influenza Virus Vaccine Quad IM 3+ YRS Unknown Completed [facility] HPV9 Unknown Completed [facility] HPV Unknown Completed [facility] HPV9 Unknown Completed [facility] Influenza Virus Vaccine Quad IM 3+ YRS Unknown Completed [facility] Meningococcal Polysaccharide (groups A, C, Y and W-135) conjugate vaccine (MCV4P) Unknown Completed [facility] Influenza Virus Vaccine Quad .5 mL IM 6+ MO (FLUZONE/FLULAVAL/FL UARIX) Unknown Completed [facility] Meningococcal B, OMV Unknown Completed [facility] Hep B, Adol or Pedi Dosage Unknown Completed [facility] Meningococcal B, OMV Unknown Completed [facility] Influenza Virus Vaccine Quad .5 mL IM 6+ MO (FLUZONE/FLULAVAL/FL UARIX) Unknown Completed [facility] SARS-COV-2 COVID-19 PFIZER VACCINE Unknown Completed [facility] SARS-COV-2 COVID-19 PFIZER VACCINE Unknown Completed [facility] SARS-COV-2 COVID-19 PFIZER VACCINE Unknown Completed [facility] SARS-COV-2 COVID-19 MIKE-SUCROSE VACCINE 12 YRS+, BIVALENT 0.3ML, IM, (PFIZER ARITA TOP) Unknown Completed [facility] HEPATITIS A Unknown Completed [facility] Influenza Virus Vaccine Unknown Completed [facility] HEPATITIS A Unknown Completed [facility] DTAP Unknown Completed [facility] Proquad (MMR/VARICELLA) Unknown Completed [facility] Polio (IPV/OPV) Unknown Completed [facility] Influenza Virus Vaccine Unknown Completed [facility] Influenza Virus Vaccine Unknown Completed [facility] Influenza Virus Vaccine Unknown Completed [facility] Influenza Virus Vaccine Unknown Completed [facility] Influenza Virus Vaccine Unknown Completed [facility] Influenza Virus Vaccine Unknown Completed [facility] Influenza Virus Vaccine (3+ yrs) Unknown Completed [facility] Meningococcal Polysaccharide (groups A, C, Y and W-135) conjugate vaccine (MCV4P) Unknown Completed [facility] TDAP Unknown Completed [facility] Influenza Virus Vaccine (3+ yrs) Unknown Completed [facility] Influenza Virus Vaccine Quad IM 3+ YRS Unknown Completed [facility] HPV9 Unknown Completed [facility] HPV Unknown Completed [facility] HPV9 Unknown Completed [facility] Influenza Virus Vaccine Quad IM 3+ YRS Unknown Completed [facility] Meningococcal Polysaccharide (groups A, C, Y and W-135) conjugate vaccine (MCV4P) Unknown Completed [facility] Influenza Virus Vaccine Quad .5 mL IM 6+ MO (FLUZONE/FLULAVAL/FL UARIX) Unknown Completed [facility] Meningococcal B, OMV Unknown Completed [facility] Hep B, Adol or Pedi Dosage Unknown Completed [facility] Meningococcal B, OMV Unknown Completed [facility] Influenza Virus Vaccine Quad .5 mL IM 6+ MO (FLUZONE/FLULAVAL/FL UARIX) Unknown Completed [facility] SARS-COV-2 COVID-19 PFIZER VACCINE Unknown Completed [facility] SARS-COV-2 COVID-19 PFIZER VACCINE Unknown Completed [facility] SARS-COV-2 COVID-19 PFIZER VACCINE Unknown Completed [facility] SARS-COV-2 COVID-19 MIKE-SUCROSE VACCINE 12 YRS+, BIVALENT 0.3ML, IM, (PFIZER ARITA TOP) Unknown Completed [facility] HEPATITIS A Unknown Completed [facility] Influenza Virus Vaccine Unknown Completed [facility] HEPATITIS A Unknown Completed [facility] DTAP Unknown Completed [facility] Proquad (MMR/VARICELLA) Unknown Completed [facility] Polio (IPV/OPV) Unknown Completed [facility] Influenza Virus Vaccine Unknown Completed [facility] Influenza Virus Vaccine Unknown Completed [facility] Influenza Virus Vaccine Unknown Completed [facility] Influenza Virus Vaccine Unknown Completed [facility] Influenza Virus Vaccine Unknown Completed [facility] Influenza Virus Vaccine Unknown Completed [facility] Influenza Virus Vaccine (3+ yrs) Unknown Completed [facility] Meningococcal Polysaccharide (groups A, C, Y and W-135) conjugate vaccine (MCV4P) Unknown Completed [facility] TDAP Unknown Completed [facility] Influenza Virus Vaccine (3+ yrs) Unknown Completed [facility] Influenza Virus Vaccine Quad IM 3+ YRS Unknown Completed [facility] HPV9 Unknown Completed [facility] HPV Unknown Completed [facility] HPV9 Unknown Completed [facility] Influenza Virus Vaccine Quad IM 3+ YRS Unknown Completed [facility] Meningococcal Polysaccharide (groups A, C, Y and W-135) conjugate vaccine (MCV4P) Unknown Completed [facility] Influenza Virus Vaccine Quad .5 mL IM 6+ MO (FLUZONE/FLULAVAL/FL UARIX) Unknown Completed [facility] Meningococcal B, OMV Unknown Completed [facility] Hep B, Adol or Pedi Dosage Unknown Completed [facility] Meningococcal B, OMV Unknown Completed [facility] Influenza Virus Vaccine Quad .5 mL IM 6+ MO (FLUZONE/FLULAVAL/FL UARIX) Unknown Completed [facility] SARS-COV-2 COVID-19 PFIZER VACCINE Unknown Completed [facility] SARS-COV-2 COVID-19 PFIZER VACCINE Unknown Completed [facility] SARS-COV-2 COVID-19 PFIZER VACCINE Unknown Completed [facility] SARS-COV-2 COVID-19 MIKE-SUCROSE VACCINE 12 YRS+, BIVALENT 0.3ML, IM, (PFIZER ARITA TOP) Unknown Completed [facility] HEPATITIS A Unknown Completed [facility] Influenza Virus Vaccine Unknown Completed [facility] HEPATITIS A Unknown Completed [facility] DTAP Unknown Completed [facility] Proquad (MMR/VARICELLA) Unknown Completed [facility] Polio (IPV/OPV) Unknown Completed [facility] Influenza Virus Vaccine Unknown Completed [facility] Influenza Virus Vaccine Unknown Completed [facility] Influenza Virus Vaccine Unknown Completed [facility] Influenza Virus Vaccine Unknown Completed [facility] Influenza Virus Vaccine Unknown Completed [facility] Influenza Virus Vaccine Unknown Completed [facility] Influenza Virus Vaccine (3+ yrs) Unknown Completed [facility] Meningococcal Polysaccharide (groups A, C, Y and W-135) conjugate vaccine (MCV4P) Unknown Completed [facility] TDAP Unknown Completed [facility] Influenza Virus Vaccine (3+ yrs) Unknown Completed [facility] Influenza Virus Vaccine Quad IM 3+ YRS Unknown Completed [facility] HPV9 Unknown Completed [facility] HPV Unknown Completed [facility] HPV9 Unknown Completed [facility] Influenza Virus Vaccine Quad IM 3+ YRS Unknown Completed [facility] Meningococcal Polysaccharide (groups A, C, Y and W-135) conjugate vaccine (MCV4P) Unknown Completed [facility] Influenza Virus Vaccine Quad .5 mL IM 6+ MO (FLUZONE/FLULAVAL/FL UARIX) Unknown Completed [facility] Meningococcal B, OMV Unknown Completed [facility] Hep B, Adol or Pedi Dosage Unknown Completed [facility] Meningococcal B, OMV Unknown Completed [facility] Influenza Virus Vaccine Quad .5 mL IM 6+ MO (FLUZONE/FLULAVAL/FL UARIX) Unknown Completed [facility] SARS-COV-2 COVID-19 PFIZER VACCINE Unknown Completed [facility] SARS-COV-2 COVID-19 PFIZER VACCINE Unknown Completed [facility] SARS-COV-2 COVID-19 PFIZER VACCINE Unknown Completed [facility] SARS-COV-2 COVID-19 MIKE-SUCROSE VACCINE 12 YRS+, BIVALENT 0.3ML, IM, (PFIZER ARITA TOP) Unknown Completed [facility] HEPATITIS A Unknown Completed [facility] Influenza Virus Vaccine Unknown Completed [facility] HEPATITIS A Unknown Completed [facility] DTAP Unknown Completed [facility] Proquad (MMR/VARICELLA) Unknown Completed [facility] Polio (IPV/OPV) Unknown Completed [facility] Influenza Virus Vaccine Unknown Completed [facility] Influenza Virus Vaccine Unknown Completed [facility] Influenza Virus Vaccine Unknown Completed [facility] Influenza Virus Vaccine Unknown Completed [facility] Influenza Virus Vaccine Unknown Completed [facility] Influenza Virus Vaccine Unknown Completed [facility] Influenza Virus Vaccine (3+ yrs) Unknown Completed [facility] Meningococcal Polysaccharide (groups A, C, Y and W-135) conjugate vaccine (MCV4P) Unknown Completed [facility] TDAP Unknown Completed [facility] Influenza Virus Vaccine (3+ yrs) Unknown Completed [facility] Influenza Virus Vaccine Quad IM 3+ YRS Unknown Completed [facility] HPV9 Unknown Completed [facility] HPV Unknown Completed [facility] HPV9 Unknown Completed [facility] Influenza Virus Vaccine Quad IM 3+ YRS Unknown Completed [facility] Meningococcal Polysaccharide (groups A, C, Y and W-135) conjugate vaccine (MCV4P) Unknown Completed [facility] Influenza Virus Vaccine Quad .5 mL IM 6+ MO (FLUZONE/FLULAVAL/FL UARIX) Unknown Completed [facility] Meningococcal B, OMV Unknown Completed [facility] Hep B, Adol or Pedi Dosage Unknown Completed [facility] Meningococcal B, OMV Unknown Completed [facility] Influenza Virus Vaccine Quad .5 mL IM 6+ MO (FLUZONE/FLULAVAL/FL UARIX) Unknown Completed [facility] SARS-COV-2 COVID-19 PFIZER VACCINE Unknown Completed [facility] SARS-COV-2 COVID-19 PFIZER VACCINE Unknown Completed [facility] SARS-COV-2 COVID-19 PFIZER VACCINE Unknown Completed [facility] SARS-COV-2 COVID-19 MKIE-SUCROSE VACCINE 12 YRS+, BIVALENT 0.3ML, IM, (PFIZER ARITA TOP) Unknown Completed [facility] HEPATITIS A Unknown Completed [facility] Influenza Virus Vaccine Unknown Completed [facility] HEPATITIS A Unknown Completed [facility] DTAP Unknown Completed [facility] Proquad (MMR/VARICELLA) Unknown Completed [facility] Polio (IPV/OPV) Unknown Completed [facility] Influenza Virus Vaccine Unknown Completed [facility] Influenza Virus Vaccine Unknown Completed [facility] Influenza Virus Vaccine Unknown Completed [facility] Influenza Virus Vaccine Unknown Completed [facility] Influenza Virus Vaccine Unknown Completed [facility] Influenza Virus Vaccine Unknown Completed [facility] Influenza Virus Vaccine (3+ yrs) Unknown Completed [facility] Meningococcal Polysaccharide (groups A, C, Y and W-135) conjugate vaccine (MCV4P) Unknown Completed [facility] TDAP Unknown Completed [facility] Influenza Virus Vaccine (3+ yrs) Unknown Completed [facility] Influenza Virus Vaccine Quad IM 3+ YRS Unknown Completed [facility] HPV9 Unknown Completed [facility] HPV Unknown Completed [facility] HPV9 Unknown Completed [facility] Influenza Virus Vaccine Quad IM 3+ YRS Unknown Completed [facility] Meningococcal Polysaccharide (groups A, C, Y and W-135) conjugate vaccine (MCV4P) Unknown Completed [facility] Influenza Virus Vaccine Quad .5 mL IM 6+ MO (FLUZONE/FLULAVAL/FL UARIX) Unknown Completed [facility] Meningococcal B, OMV Unknown Completed [facility] Hep B, Adol or Pedi Dosage Unknown Completed [facility] Meningococcal B, OMV Unknown Completed [facility] Influenza Virus Vaccine Quad .5 mL IM 6+ MO (FLUZONE/FLULAVAL/FL UARIX) Unknown Completed [facility] SARS-COV-2 COVID-19 PFIZER VACCINE Unknown Completed [facility] SARS-COV-2 COVID-19 PFIZER VACCINE Unknown Completed [facility] SARS-COV-2 COVID-19 PFIZER VACCINE Unknown Completed [facility] SARS-COV-2 COVID-19 MIKE-SUCROSE VACCINE 12 YRS+, BIVALENT 0.3ML, IM, (PFIZER ARITA TOP) Unknown Completed [facility] HEPATITIS A Unknown Completed [facility] Influenza Virus Vaccine Unknown Completed [facility] HEPATITIS A Unknown Completed [facility] DTAP Unknown Completed [facility] Proquad (MMR/VARICELLA) Unknown Completed [facility] Polio (IPV/OPV) Unknown Completed [facility] Influenza Virus Vaccine Unknown Completed [facility] Influenza Virus Vaccine Unknown Completed [facility] Influenza Virus Vaccine Unknown Completed [facility] Influenza Virus Vaccine Unknown Completed [facility] Influenza Virus Vaccine Unknown Completed [facility] Influenza Virus Vaccine Unknown Completed [facility] Influenza Virus Vaccine (3+ yrs) Unknown Completed [facility] Meningococcal Polysaccharide (groups A, C, Y and W-135) conjugate vaccine (MCV4P) Unknown Completed [facility] TDAP Unknown Completed [facility] Influenza Virus Vaccine (3+ yrs) Unknown Completed [facility] Influenza Virus Vaccine Quad IM 3+ YRS Unknown Completed [facility] HPV9 Unknown Completed [facility] HPV Unknown Completed [facility] HPV9 Unknown Completed [facility] Influenza Virus Vaccine Quad IM 3+ YRS Unknown Completed [facility] Meningococcal Polysaccharide (groups A, C, Y and W-135) conjugate vaccine (MCV4P) Unknown Completed [facility] Influenza Virus Vaccine Quad .5 mL IM 6+ MO (FLUZONE/FLULAVAL/FL UARIX) Unknown Completed [facility] Meningococcal B, OMV Unknown Completed [facility] Hep B, Adol or Pedi Dosage Unknown Completed [facility] Meningococcal B, OMV Unknown Completed [facility] Influenza Virus Vaccine Quad .5 mL IM 6+ MO (FLUZONE/FLULAVAL/FL UARIX) Unknown Completed [facility] SARS-COV-2 COVID-19 PFIZER VACCINE Unknown Completed [facility] SARS-COV-2 COVID-19 PFIZER VACCINE Unknown Completed [facility] SARS-COV-2 COVID-19 PFIZER VACCINE Unknown Completed [facility] SARS-COV-2 COVID-19 MIKE-SUCROSE VACCINE 12 YRS+, BIVALENT 0.3ML, IM, (PFIZER ARITA TOP) Unknown Completed [facility] HEPATITIS A Unknown Completed [facility] Influenza Virus Vaccine Unknown Completed [facility] HEPATITIS A Unknown Completed [facility] DTAP Unknown Completed [facility] Proquad (MMR/VARICELLA) Unknown Completed [facility] Polio (IPV/OPV) Unknown Completed [facility] Influenza Virus Vaccine Unknown Completed [facility] Influenza Virus Vaccine Unknown Completed [facility] Influenza Virus Vaccine Unknown Completed [facility] Influenza Virus Vaccine Unknown Completed [facility] Influenza Virus Vaccine Unknown Completed [facility] Influenza Virus Vaccine Unknown Completed [facility] Influenza Virus Vaccine (3+ yrs) Unknown Completed [facility] Meningococcal Polysaccharide (groups A, C, Y and W-135) conjugate vaccine (MCV4P) Unknown Completed [facility] TDAP Unknown Completed [facility] Influenza Virus Vaccine (3+ yrs) Unknown Completed [facility] Influenza Virus Vaccine Quad IM 3+ YRS Unknown Completed [facility] HPV9 Unknown Completed [facility] HPV Unknown Completed [facility] HPV9 Unknown Completed [facility] Influenza Virus Vaccine Quad IM 3+ YRS Unknown Completed [facility] Meningococcal Polysaccharide (groups A, C, Y and W-135) conjugate vaccine (MCV4P) Unknown Completed [facility] Influenza Virus Vaccine Quad .5 mL IM 6+ MO (FLUZONE/FLULAVAL/FL UARIX) Unknown Completed [facility] Meningococcal B, OMV Unknown Completed [facility] Hep B, Adol or Pedi Dosage Unknown Completed [facility] Meningococcal B, OMV Unknown Completed [facility] Influenza Virus Vaccine Quad .5 mL IM 6+ MO (FLUZONE/FLULAVAL/FL UARIX) Unknown Completed [facility] SARS-COV-2 COVID-19 PFIZER VACCINE Unknown Completed [facility] SARS-COV-2 COVID-19 PFIZER VACCINE Unknown Completed [facility] SARS-COV-2 COVID-19 PFIZER VACCINE Unknown Completed [facility] SARS-COV-2 COVID-19 MIKE-SUCROSE VACCINE 12 YRS+, BIVALENT 0.3ML, IM, (PFIZER ARITA TOP) Unknown Completed [facility] HEPATITIS A Unknown Completed [facility] Influenza Virus Vaccine Unknown Completed [facility] HEPATITIS A Unknown Completed [facility] DTAP Unknown Completed [facility] Proquad (MMR/VARICELLA) Unknown Completed [facility] Polio (IPV/OPV) Unknown Completed [facility] Influenza Virus Vaccine Unknown Completed [facility] Influenza Virus Vaccine Unknown Completed [facility] Influenza Virus Vaccine Unknown Completed [facility] Influenza Virus Vaccine Unknown Completed [facility] Influenza Virus Vaccine Unknown Completed [facility] Influenza Virus Vaccine Unknown Completed [facility] Influenza Virus Vaccine (3+ yrs) Unknown Completed [facility] Meningococcal Polysaccharide (groups A, C, Y and W-135) conjugate vaccine (MCV4P) Unknown Completed [facility] TDAP Unknown Completed [facility] Influenza Virus Vaccine (3+ yrs) Unknown Completed [facility] Influenza Virus Vaccine Quad IM 3+ YRS Unknown Completed [facility] HPV9 Unknown Completed [facility] HPV Unknown Completed [facility] HPV9 Unknown Completed [facility] Influenza Virus Vaccine Quad IM 3+ YRS Unknown Completed [facility] Meningococcal Polysaccharide (groups A, C, Y and W-135) conjugate vaccine (MCV4P) Unknown Completed [facility] Influenza Virus Vaccine Quad .5 mL IM 6+ MO (FLUZONE/FLULAVAL/FL UARIX) Unknown Completed [facility] Meningococcal B, OMV Unknown Completed [facility] Hep B, Adol or Pedi Dosage Unknown Completed [facility] Meningococcal B, OMV Unknown Completed [facility] Influenza Virus Vaccine Quad .5 mL IM 6+ MO (FLUZONE/FLULAVAL/FL UARIX) Unknown Completed [facility] SARS-COV-2 COVID-19 PFIZER VACCINE Unknown Completed [facility] SARS-COV-2 COVID-19 PFIZER VACCINE Unknown Completed [facility] SARS-COV-2 COVID-19 PFIZER VACCINE Unknown Completed [facility] SARS-COV-2 COVID-19 MIKE-SUCROSE VACCINE 12 YRS+, BIVALENT 0.3ML, IM, (PFIZER ARITA TOP) Unknown Completed [facility] HEPATITIS A Unknown Completed [facility] Influenza Virus Vaccine Unknown Completed [facility] HEPATITIS A Unknown Completed [facility] DTAP Unknown Completed [facility] Proquad (MMR/VARICELLA) Unknown Completed [facility] Polio (IPV/OPV) Unknown Completed [facility] Influenza Virus Vaccine Unknown Completed [facility] Influenza Virus Vaccine Unknown Completed [facility] Influenza Virus Vaccine Unknown Completed [facility] Influenza Virus Vaccine Unknown Completed [facility] Influenza Virus Vaccine Unknown Completed [facility] Influenza Virus Vaccine Unknown Completed [facility] Influenza Virus Vaccine (3+ yrs) Unknown Completed [facility] Meningococcal Polysaccharide (groups A, C, Y and W-135) conjugate vaccine (MCV4P) Unknown Completed [facility] TDAP Unknown Completed [facility] Influenza Virus Vaccine (3+ yrs) Unknown Completed [facility] Influenza Virus Vaccine Quad IM 3+ YRS Unknown Completed [facility] HPV9 Unknown Completed [facility] HPV Unknown Completed [facility] HPV9 Unknown Completed [facility] Influenza Virus Vaccine Quad IM 3+ YRS Unknown Completed [facility] Meningococcal Polysaccharide (groups A, C, Y and W-135) conjugate vaccine (MCV4P) Unknown Completed [facility] Influenza Virus Vaccine Quad .5 mL IM 6+ MO (FLUZONE/FLULAVAL/FL UARIX) Unknown Completed [facility] Meningococcal B, OMV Unknown Completed [facility] Hep B, Adol or Pedi Dosage Unknown Completed [facility] Meningococcal B, OMV Unknown Completed [facility] Influenza Virus Vaccine Quad .5 mL IM 6+ MO (FLUZONE/FLULAVAL/FL UARIX) Unknown Completed [facility] SARS-COV-2 COVID-19 PFIZER VACCINE Unknown Completed [facility] SARS-COV-2 COVID-19 PFIZER VACCINE Unknown Completed [facility] SARS-COV-2 COVID-19 PFIZER VACCINE Unknown Completed [facility] SARS-COV-2 COVID-19 MIKE-SUCROSE VACCINE 12 YRS+, BIVALENT 0.3ML, IM, (PFIZER ARITA TOP) Unknown Completed [facility] DTAP Unknown Completed [facility] DTAP Unknown Completed [facility] DTAP Unknown Completed [facility] HIB 4 Dose Schedule Unknown Completed [facility] HIB 4 Dose Schedule Unknown Completed [facility] HIB 4 Dose Schedule Unknown Completed [facility] Hep B, Adol or Pedi Dosage Unknown Completed [facility] Hep B, Adol or Pedi Dosage Unknown Completed [facility] Pneumococcal 7 Conjugate, PCV7 (Prevnar7) Unknown Completed [facility] Pneumococcal 7 Conjugate, PCV7 (Prevnar7) Unknown Completed [facility] Polio (IPV/OPV) Unknown Completed [facility] Polio (IPV/OPV) Unknown Completed [facility] HIB 4 Dose Schedule Unknown Completed [facility] MMR Unknown Completed [facility] Pneumococcal 7 Conjugate, PCV7 (Prevnar7) Unknown Completed [facility] Polio (IPV/OPV) Unknown Completed [facility] Varicella (varivax)(chicken pox) Unknown Completed [facility] HEPATITIS A Unknown Completed [facility] Influenza Virus Vaccine Unknown Completed [facility] HEPATITIS A Unknown Completed [facility] DTAP Unknown Completed [facility] Proquad (MMR/VARICELLA) Unknown Completed [facility] Polio (IPV/OPV) Unknown Completed [facility] Influenza Virus Vaccine Unknown Completed [facility] Influenza Virus Vaccine Unknown Completed [facility] Influenza Virus Vaccine Unknown Completed [facility] Influenza Virus Vaccine Unknown Completed [facility] Influenza Virus Vaccine Unknown Completed [facility] Influenza Virus Vaccine Unknown Completed [facility] Influenza Virus Vaccine (3+ yrs) Unknown Completed [facility] Meningococcal Polysaccharide (groups A, C, Y and W-135) conjugate vaccine (MCV4P) Unknown Completed [facility] TDAP Unknown Completed [facility] Influenza Virus Vaccine (3+ yrs) Unknown Completed [facility] Influenza Virus Vaccine Quad IM 3+ YRS Unknown Completed [facility] HPV9 Unknown Completed [facility] HPV Unknown Completed [facility] HPV9 Unknown Completed [facility] Influenza Virus Vaccine Quad IM 3+ YRS Unknown Completed [facility] Meningococcal Polysaccharide (groups A, C, Y and W-135) conjugate vaccine (MCV4P) Unknown Completed [facility] Influenza Virus Vaccine Quad .5 mL IM 6+ MO (FLUZONE/FLULAVAL/FL UARIX) Unknown Completed [facility] Meningococcal B, OMV Unknown Completed [facility] Hep B, Adol or Pedi Dosage Unknown Completed [facility] Meningococcal B, OMV Unknown Completed [facility] Influenza Virus Vaccine Quad .5 mL IM 6+ MO (FLUZONE/FLULAVAL/FL UARIX) Unknown Completed [facility] SARS-COV-2 COVID-19 PFIZER VACCINE Unknown Completed [facility] SARS-COV-2 COVID-19 PFIZER VACCINE Unknown Completed [facility] SARS-COV-2 COVID-19 PFIZER VACCINE Unknown Completed [facility] SARS-COV-2 COVID-19 MIKE-SUCROSE VACCINE 12 YRS+, BIVALENT 0.3ML, IM, (PFIZER ARITA TOP) Unknown Completed [facility] DTAP Unknown Completed [facility] DTAP Unknown Completed [facility] DTAP Unknown Completed [facility] HIB 4 Dose Schedule Unknown Completed [facility] HIB 4 Dose Schedule Unknown Completed [facility] HIB 4 Dose Schedule Unknown Completed [facility] Hep B, Adol or Pedi Dosage Unknown Completed [facility] Hep B, Adol or Pedi Dosage Unknown Completed [facility] Pneumococcal 7 Conjugate, PCV7 (Prevnar7) Unknown Completed [facility] Pneumococcal 7 Conjugate, PCV7 (Prevnar7) Unknown Completed [facility] Polio (IPV/OPV) Unknown Completed [facility] Polio (IPV/OPV) Unknown Completed [facility] HIB 4 Dose Schedule Unknown Completed [facility] MMR Unknown Completed [facility] Pneumococcal 7 Conjugate, PCV7 (Prevnar7) Unknown Completed [facility] Polio (IPV/OPV) Unknown Completed [facility] Varicella (varivax)(chicken pox) Unknown Completed [facility] HEPATITIS A Unknown Completed [facility] Influenza Virus Vaccine Unknown Completed [facility] HEPATITIS A Unknown Completed [facility] DTAP Unknown Completed [facility] Proquad (MMR/VARICELLA) Unknown Completed [facility] Polio (IPV/OPV) Unknown Completed [facility] Influenza Virus Vaccine Unknown Completed [facility] Influenza Virus Vaccine Unknown Completed [facility] Influenza Virus Vaccine Unknown Completed [facility] Influenza Virus Vaccine Unknown Completed [facility] Influenza Virus Vaccine Unknown Completed [facility] Influenza Virus Vaccine Unknown Completed [facility] Influenza Virus Vaccine (3+ yrs) Unknown Completed [facility] Meningococcal Polysaccharide (groups A, C, Y and W-135) conjugate vaccine (MCV4P) Unknown Completed [facility] TDAP Unknown Completed [facility] Influenza Virus Vaccine (3+ yrs) Unknown Completed [facility] Influenza Virus Vaccine Quad IM 3+ YRS Unknown Completed [facility] HPV9 Unknown Completed [facility] HPV Unknown Completed [facility] HPV9 Unknown Completed [facility] Influenza Virus Vaccine Quad IM 3+ YRS Unknown Completed [facility] Meningococcal Polysaccharide (groups A, C, Y and W-135) conjugate vaccine (MCV4P) Unknown Completed [facility] Influenza Virus Vaccine Quad .5 mL IM 6+ MO (FLUZONE/FLULAVAL/FL UARIX) Unknown Completed [facility] Meningococcal B, OMV Unknown Completed [facility] Hep B, Adol or Pedi Dosage Unknown Completed [facility] Meningococcal B, OMV Unknown Completed [facility] Influenza Virus Vaccine Quad .5 mL IM 6+ MO (FLUZONE/FLULAVAL/FL UARIX) Unknown Completed [facility] SARS-COV-2 COVID-19 PFIZER VACCINE Unknown Completed [facility] SARS-COV-2 COVID-19 PFIZER VACCINE Unknown Completed [facility] SARS-COV-2 COVID-19 PFIZER VACCINE Unknown Completed [facility] SARS-COV-2 COVID-19 MIKE-SUCROSE VACCINE 12 YRS+, BIVALENT 0.3ML, IM, (PFIZER ARITA TOP) Unknown Completed [facility] HEPATITIS A Unknown Completed [facility] Influenza Virus Vaccine Unknown Completed [facility] HEPATITIS A Unknown Completed [facility] DTAP Unknown Completed [facility] Proquad (MMR/VARICELLA) Unknown Completed [facility] Polio (IPV/OPV) Unknown Completed [facility] Influenza Virus Vaccine Unknown Completed [facility] Influenza Virus Vaccine Unknown Completed [facility] Influenza Virus Vaccine Unknown Completed [facility] Influenza Virus Vaccine Unknown Completed [facility] Influenza Virus Vaccine Unknown Completed [facility] Influenza Virus Vaccine Unknown Completed [facility] Influenza Virus Vaccine (3+ yrs) Unknown Completed [facility] Meningococcal Polysaccharide (groups A, C, Y and W-135) conjugate vaccine (MCV4P) Unknown Completed [facility] TDAP Unknown Completed [facility] Influenza Virus Vaccine (3+ yrs) Unknown Completed [facility] Influenza Virus Vaccine Quad IM 3+ YRS Unknown Completed [facility] HPV9 Unknown Completed [facility] HPV Unknown Completed [facility] HPV9 Unknown Completed [facility] Influenza Virus Vaccine Quad IM 3+ YRS Unknown Completed [facility] Meningococcal Polysaccharide (groups A, C, Y and W-135) conjugate vaccine (MCV4P) Unknown Completed [facility] Influenza Virus Vaccine Quad .5 mL IM 6+ MO (FLUZONE/FLULAVAL/FL UARIX) Unknown Completed [facility] Meningococcal B, OMV Unknown Completed [facility] Hep B, Adol or Pedi Dosage Unknown Completed [facility] Meningococcal B, OMV Unknown Completed [facility] Influenza Virus Vaccine Quad .5 mL IM 6+ MO (FLUZONE/FLULAVAL/FL UARIX) Unknown Completed [facility] SARS-COV-2 COVID-19 PFIZER VACCINE Unknown Completed [facility] SARS-COV-2 COVID-19 PFIZER VACCINE Unknown Completed [facility] SARS-COV-2 COVID-19 PFIZER VACCINE Unknown Completed [facility] SARS-COV-2 COVID-19 MIKE-SUCROSE VACCINE 12 YRS+, BIVALENT 0.3ML, IM, (PFIZER ARITA TOP) Unknown Completed [facility] HEPATITIS A Unknown Completed [facility] Influenza Virus Vaccine Unknown Completed [facility] HEPATITIS A Unknown Completed [facility] DTAP Unknown Completed [facility] Proquad (MMR/VARICELLA) Unknown Completed [facility] Polio (IPV/OPV) Unknown Completed [facility] Influenza Virus Vaccine Unknown Completed [facility] Influenza Virus Vaccine Unknown Completed [facility] Influenza Virus Vaccine Unknown Completed [facility] Influenza Virus Vaccine Unknown Completed [facility] Influenza Virus Vaccine Unknown Completed [facility] Influenza Virus Vaccine Unknown Completed [facility] Influenza Virus Vaccine (3+ yrs) Unknown Completed [facility] Meningococcal Polysaccharide (groups A, C, Y and W-135) conjugate vaccine (MCV4P) Unknown Completed [facility] TDAP Unknown Completed [facility] Influenza Virus Vaccine (3+ yrs) Unknown Completed [facility] Influenza Virus Vaccine Quad IM 3+ YRS Unknown Completed [facility] HPV9 Unknown Completed [facility] HPV Unknown Completed [facility] HPV9 Unknown Completed [facility] Influenza Virus Vaccine Quad IM 3+ YRS Unknown Completed [facility] Meningococcal Polysaccharide (groups A, C, Y and W-135) conjugate vaccine (MCV4P) Unknown Completed [facility] Influenza Virus Vaccine Quad .5 mL IM 6+ MO (FLUZONE/FLULAVAL/FL UARIX) Unknown Completed [facility] Meningococcal B, OMV Unknown Completed [facility] Hep B, Adol or Pedi Dosage Unknown Completed [facility] Meningococcal B, OMV Unknown Completed [facility] Influenza Virus Vaccine Quad .5 mL IM 6+ MO (FLUZONE/FLULAVAL/FL UARIX) Unknown Completed [facility] SARS-COV-2 COVID-19 PFIZER VACCINE Unknown Completed [facility] SARS-COV-2 COVID-19 PFIZER VACCINE Unknown Completed [facility] SARS-COV-2 COVID-19 PFIZER VACCINE Unknown Completed [facility] SARS-COV-2 COVID-19 MIKE-SUCROSE VACCINE 12 YRS+, BIVALENT 0.3ML, IM, (PFIZER ARITA TOP) Unknown Completed [facility] HEPATITIS A Unknown Completed [facility] Influenza Virus Vaccine Unknown Completed [facility] HEPATITIS A Unknown Completed [facility] DTAP Unknown Completed [facility] Proquad (MMR/VARICELLA) Unknown Completed [facility] Polio (IPV/OPV) Unknown Completed [facility] Influenza Virus Vaccine Unknown Completed [facility] Influenza Virus Vaccine Unknown Completed [facility] Influenza Virus Vaccine Unknown Completed [facility] Influenza Virus Vaccine Unknown Completed [facility] Influenza Virus Vaccine Unknown Completed [facility] Influenza Virus Vaccine Unknown Completed [facility] Influenza Virus Vaccine (3+ yrs) Unknown Completed [facility] Meningococcal Polysaccharide (groups A, C, Y and W-135) conjugate vaccine (MCV4P) Unknown Completed [facility] TDAP Unknown Completed [facility] Influenza Virus Vaccine (3+ yrs) Unknown Completed [facility] Influenza Virus Vaccine Quad IM 3+ YRS Unknown Completed [facility] HPV9 Unknown Completed [facility] HPV Unknown Completed [facility] HPV9 Unknown Completed [facility] Influenza Virus Vaccine Quad IM 3+ YRS Unknown Completed [facility] Meningococcal Polysaccharide (groups A, C, Y and W-135) conjugate vaccine (MCV4P) Unknown Completed [facility] Influenza Virus Vaccine Quad .5 mL IM 6+ MO (FLUZONE/FLULAVAL/FL UARIX) Unknown Completed [facility] Meningococcal B, OMV Unknown Completed [facility] Hep B, Adol or Pedi Dosage Unknown Completed [facility] Meningococcal B, OMV Unknown Completed [facility] Influenza Virus Vaccine Quad .5 mL IM 6+ MO (FLUZONE/FLULAVAL/FL UARIX) Unknown Completed [facility] SARS-COV-2 COVID-19 PFIZER VACCINE Unknown Completed [facility] SARS-COV-2 COVID-19 PFIZER VACCINE Unknown Completed [facility] SARS-COV-2 COVID-19 PFIZER VACCINE Unknown Completed [facility] SARS-COV-2 COVID-19 MIKE-SUCROSE VACCINE 12 YRS+, BIVALENT 0.3ML, IM, (PFIZER ARITA TOP) Unknown Completed [facility] DTAP Unknown Completed [facility] DTAP Unknown Completed [facility] DTAP Unknown Completed [facility] HIB 4 Dose Schedule Unknown Completed [facility] HIB 4 Dose Schedule Unknown Completed [facility] HIB 4 Dose Schedule Unknown Completed [facility] Hep B, Adol or Pedi Dosage Unknown Completed [facility] Hep B, Adol or Pedi Dosage Unknown Completed [facility] Pneumococcal 7 Conjugate, PCV7 (Prevnar7) Unknown Completed [facility] Pneumococcal 7 Conjugate, PCV7 (Prevnar7) Unknown Completed [facility] Polio (IPV/OPV) Unknown Completed [facility] Polio (IPV/OPV) Unknown Completed [facility] HIB 4 Dose Schedule Unknown Completed [facility] MMR Unknown Completed [facility] Pneumococcal 7 Conjugate, PCV7 (Prevnar7) Unknown Completed [facility] Polio (IPV/OPV) Unknown Completed [facility] Varicella (varivax)(chicken pox) Unknown Completed [facility] HEPATITIS A Unknown Completed [facility] Influenza Virus Vaccine Unknown Completed [facility] HEPATITIS A Unknown Completed [facility] DTAP Unknown Completed [facility] Proquad (MMR/VARICELLA) Unknown Completed [facility] Polio (IPV/OPV) Unknown Completed [facility] Influenza Virus Vaccine Unknown Completed [facility] Influenza Virus Vaccine Unknown Completed [facility] Influenza Virus Vaccine Unknown Completed [facility] Influenza Virus Vaccine Unknown Completed [facility] Influenza Virus Vaccine Unknown Completed [facility] Influenza Virus Vaccine Unknown Completed [facility] Influenza Virus Vaccine (3+ yrs) Unknown Completed [facility] Meningococcal Polysaccharide (groups A, C, Y and W-135) conjugate vaccine (MCV4P) Unknown Completed [facility] TDAP Unknown Completed [facility] Influenza Virus Vaccine (3+ yrs) Unknown Completed [facility] Influenza Virus Vaccine Quad IM 3+ YRS Unknown Completed [facility] HPV9 Unknown Completed [facility] HPV Unknown Completed [facility] HPV9 Unknown Completed [facility] Influenza Virus Vaccine Quad IM 3+ YRS Unknown Completed [facility] Meningococcal Polysaccharide (groups A, C, Y and W-135) conjugate vaccine (MCV4P) Unknown Completed [facility] Influenza Virus Vaccine Quad .5 mL IM 6+ MO (FLUZONE/FLULAVAL/FL UARIX) Unknown Completed [facility] Meningococcal B, OMV Unknown Completed [facility] Hep B, Adol or Pedi Dosage Unknown Completed [facility] Meningococcal B, OMV Unknown Completed [facility] Influenza Virus Vaccine Quad .5 mL IM 6+ MO (FLUZONE/FLULAVAL/FL UARIX) Unknown Completed [facility] SARS-COV-2 COVID-19 PFIZER VACCINE Unknown Completed [facility] SARS-COV-2 COVID-19 PFIZER VACCINE Unknown Completed [facility] SARS-COV-2 COVID-19 PFIZER VACCINE Unknown Completed [facility] SARS-COV-2 COVID-19 MIKE-SUCROSE VACCINE 12 YRS+, BIVALENT 0.3ML, IM, (PFIZER ARITA TOP) Unknown Completed [facility] DTAP Unknown Completed [facility] DTAP Unknown Completed [facility] DTAP Unknown Completed [facility] HIB 4 Dose Schedule Unknown Completed [facility] HIB 4 Dose Schedule Unknown Completed [facility] HIB 4 Dose Schedule Unknown Completed [facility] Hep B, Adol or Pedi Dosage Unknown Completed [facility] Hep B, Adol or Pedi Dosage Unknown Completed [facility] Pneumococcal 7 Conjugate, PCV7 (Prevnar7) Unknown Completed [facility] Pneumococcal 7 Conjugate, PCV7 (Prevnar7) Unknown Completed [facility] Polio (IPV/OPV) Unknown Completed [facility] Polio (IPV/OPV) Unknown Completed [facility] HIB 4 Dose Schedule Unknown Completed [facility] MMR Unknown Completed [facility] Pneumococcal 7 Conjugate, PCV7 (Prevnar7) Unknown Completed [facility] Polio (IPV/OPV) Unknown Completed [facility] Varicella (varivax)(chicken pox) Unknown Completed [facility] HEPATITIS A Unknown Completed [facility] Influenza Virus Vaccine Unknown Completed [facility] HEPATITIS A Unknown Completed [facility] DTAP Unknown Completed [facility] Proquad (MMR/VARICELLA) Unknown Completed [facility] Polio (IPV/OPV) Unknown Completed [facility] Influenza Virus Vaccine Unknown Completed [facility] Influenza Virus Vaccine Unknown Completed [facility] Influenza Virus Vaccine Unknown Completed [facility] Influenza Virus Vaccine Unknown Completed [facility] Influenza Virus Vaccine Unknown Completed [facility] Influenza Virus Vaccine Unknown Completed [facility] Influenza Virus Vaccine (3+ yrs) Unknown Completed [facility] Meningococcal Polysaccharide (groups A, C, Y and W-135) conjugate vaccine (MCV4P) Unknown Completed [facility] TDAP Unknown Completed [facility] Influenza Virus Vaccine (3+ yrs) Unknown Completed [facility] Influenza Virus Vaccine Quad IM 3+ YRS Unknown Completed [facility] HPV9 Unknown Completed [facility] HPV Unknown Completed [facility] HPV9 Unknown Completed [facility] Influenza Virus Vaccine Quad IM 3+ YRS Unknown Completed [facility] Meningococcal Polysaccharide (groups A, C, Y and W-135) conjugate vaccine (MCV4P) Unknown Completed [facility] Influenza Virus Vaccine Quad .5 mL IM 6+ MO (FLUZONE/FLULAVAL/FL UARIX) Unknown Completed [facility] Meningococcal B, OMV Unknown Completed [facility] Hep B, Adol or Pedi Dosage Unknown Completed [facility] Meningococcal B, OMV Unknown Completed [facility] Influenza Virus Vaccine Quad .5 mL IM 6+ MO (FLUZONE/FLULAVAL/FL UARIX) Unknown Completed [facility] SARS-COV-2 COVID-19 PFIZER VACCINE Unknown Completed [facility] SARS-COV-2 COVID-19 PFIZER VACCINE Unknown Completed [facility] SARS-COV-2 COVID-19 PFIZER VACCINE Unknown Completed [facility] SARS-COV-2 COVID-19 MIKE-SUCROSE VACCINE 12 YRS+, BIVALENT 0.3ML, IM, (PFIZER ARITA TOP) Unknown Completed [facility] DTAP Unknown Completed [facility] DTAP Unknown Completed [facility] DTAP Unknown Completed [facility] HIB 4 Dose Schedule Unknown Completed [facility] HIB 4 Dose Schedule Unknown Completed [facility] HIB 4 Dose Schedule Unknown Completed [facility] Hep B, Adol or Pedi Dosage Unknown Completed [facility] Hep B, Adol or Pedi Dosage Unknown Completed [facility] Pneumococcal 7 Conjugate, PCV7 (Prevnar7) Unknown Completed [facility] Pneumococcal 7 Conjugate, PCV7 (Prevnar7) Unknown Completed [facility] Polio (IPV/OPV) Unknown Completed [facility] Polio (IPV/OPV) Unknown Completed [facility] HIB 4 Dose Schedule Unknown Completed [facility] MMR Unknown Completed [facility] Pneumococcal 7 Conjugate, PCV7 (Prevnar7) Unknown Completed [facility] Polio (IPV/OPV) Unknown Completed [facility] Varicella (varivax)(chicken pox) Unknown Completed [facility] HEPATITIS A Unknown Completed [facility] Influenza Virus Vaccine Unknown Completed [facility] HEPATITIS A Unknown Completed [facility] DTAP Unknown Completed [facility] Proquad (MMR/VARICELLA) Unknown Completed [facility] Polio (IPV/OPV) Unknown Completed [facility] Influenza Virus Vaccine Unknown Completed [facility] Influenza Virus Vaccine Unknown Completed [facility] Influenza Virus Vaccine Unknown Completed [facility] Influenza Virus Vaccine Unknown Completed [facility] Influenza Virus Vaccine Unknown Completed [facility] Influenza Virus Vaccine Unknown Completed [facility] Influenza Virus Vaccine (3+ yrs) Unknown Completed [facility] Meningococcal Polysaccharide (groups A, C, Y and W-135) conjugate vaccine (MCV4P) Unknown Completed [facility] TDAP Unknown Completed [facility] Influenza Virus Vaccine (3+ yrs) Unknown Completed [facility] Influenza Virus Vaccine Quad IM 3+ YRS Unknown Completed [facility] HPV9 Unknown Completed [facility] HPV Unknown Completed [facility] HPV9 Unknown Completed [facility] Influenza Virus Vaccine Quad IM 3+ YRS Unknown Completed [facility] Meningococcal Polysaccharide (groups A, C, Y and W-135) conjugate vaccine (MCV4P) Unknown Completed [facility] Influenza Virus Vaccine Quad .5 mL IM 6+ MO (FLUZONE/FLULAVAL/FL UARIX) Unknown Completed [facility] Meningococcal B, OMV Unknown Completed [facility] Hep B, Adol or Pedi Dosage Unknown Completed [facility] Meningococcal B, OMV Unknown Completed [facility] Influenza Virus Vaccine Quad .5 mL IM 6+ MO (FLUZONE/FLULAVAL/FL UARIX) Unknown Completed [facility] SARS-COV-2 COVID-19 PFIZER VACCINE Unknown Completed [facility] SARS-COV-2 COVID-19 PFIZER VACCINE Unknown Completed [facility] SARS-COV-2 COVID-19 PFIZER VACCINE Unknown Completed [facility] SARS-COV-2 COVID-19 MIKE-SUCROSE VACCINE 12 YRS+, BIVALENT 0.3ML, IM, (PFIZER ARITA TOP) Unknown Completed [facility] Vital Signs Vital Name Observation Time Observation Value Comments S ource Systolic blood pressure 2023-09-01 16:30:00 102 mm[Hg] [facility] Diastolic blood pressure 2023-09-01 16:30:00 69 mm[Hg] [facility] Heart rate 2023-09-01 16:30:00 96 /min [facility] Respiratory rate 2023-09-01 16:30:00 18 /min [facility] Body weight 2023-09-01 16:30:00 55.883 kg [facility] BMI 2023-09-01 16:30:00 21.82 kg/m2 [facility] Oxygen saturation in Arterial blood by Pulse oximetry 2023-09-01 16:30:00 98 /min [facility] Systolic blood pressure 2023-07-19 17:00:00 101 mm[Hg] [facility] Diastolic blood pressure 2023-07-19 17:00:00 65 mm[Hg] [facility] Heart rate 2023-07-19 17:00:00 81 /min [facility] Body temperature 2023-07-19 17:00:00 37.11 Linda [facility] Respiratory rate 2023-07-19 17:00:00 16 /min [facility] Body weight 2023-07-19 17:00:00 55.339 kg [facility] BMI 2023-07-19 17:00:00 21.61 kg/m2 [facility] Oxygen saturation in Arterial blood by Pulse oximetry 2023-07-19 17:00:00 99 /min [facility] Systolic blood pressure 2023-07-13 21:40:00 108 mm[Hg] [facility] Diastolic blood pressure 2023-07-13 21:40:00 73 mm[Hg] [facility] Heart rate 2023-07-13 21:40:00 84 /min [facility] Body temperature 2023-07-13 21:40:00 36.33 Linda [facility] Respiratory rate 2023-07-13 21:40:00 16 /min [facility] Body height 2023-07-13 21:40:00 160 cm [facility] Body weight 2023-07-13 21:40:00 55.203 kg [facility] BMI 2023-07-13 21:40:00 21.56 kg/m2 [facility] Oxygen saturation in Arterial blood by Pulse oximetry 2023-07-13 21:40:00 98 /min [facility] Systolic blood pressure 2023-07-07 17:25:00 100 mm[Hg] [facility] Diastolic blood pressure 2023-07-07 17:25:00 69 mm[Hg] [facility] Heart rate 2023-07-07 17:25:00 98 /min [facility] Body temperature 2023-07-07 17:25:00 36.67 Linda [facility] Respiratory rate 2023-07-07 17:25:00 16 /min [facility] Body height 2023-07-07 17:25:00 157.5 cm [facility] Body weight 2023-07-07 17:25:00 55.248 kg [facility] BMI 2023-07-07 17:25:00 22.28 kg/m2 [facility] Systolic blood pressure 2023-05-23 14:11:00 106 mm[Hg] [facility] Diastolic blood pressure 2023-05-23 14:11:00 73 mm[Hg] [facility] Heart rate 2023-05-23 14:11:00 90 /min [facility] Body temperature 2023-05-23 14:11:00 36.83 Linda [facility] Respiratory rate 2023-05-23 14:11:00 16 /min [facility] Body height 2023-05-23 14:11:00 165.1 cm [facility] Body weight 2023-05-23 14:11:00 58.06 kg [facility] BMI 2023-05-23 14:11:00 21.30 kg/m2 [facility] Systolic blood pressure 2023-04-27 15:01:00 117 mm[Hg] [facility] Diastolic blood pressure 2023-04-27 15:01:00 78 mm[Hg] [facility] Heart rate 2023-04-27 15:01:00 126 /min [facility] Body temperature 2023-04-27 15:01:00 36.83 Linda [facility] Respiratory rate 2023-04-27 15:01:00 16 /min [facility] Body height 2023-04-27 15:01:00 160 cm [facility] Body weight 2023-04-27 15:01:00 56.337 kg [facility] BMI 2023-04-27 15:01:00 22.00 kg/m2 [facility] Oxygen saturation in Arterial blood by Pulse oximetry 2023-04-27 15:01:00 98 /min [facility] Systolic blood pressure 2023-04-25 22:01:00 115 mm[Hg] [facility] Diastolic blood pressure 2023-04-25 22:01:00 84 mm[Hg] [facility] Heart rate 2023-04-25 22:01:00 108 /min [facility] Body temperature 2023-04-25 22:01:00 36.61 Linda [facility] Respiratory rate 2023-04-25 22:01:00 19 /min [facility] Body height 2023-04-25 22:01:00 160 cm [facility] Body weight 2023-04-25 22:01:00 57.607 kg [facility] BMI 2023-04-25 22:01:00 22.50 kg/m2 [facility] Oxygen saturation in Arterial blood by Pulse oximetry 2023-04-25 22:01:00 100 /min [facility] Body temperature 2022-12-15 15:53:00 36.44 Linda [facility] Body weight 2022-12-15 15:53:00 52.39 kg [facility] Systolic blood pressure 2022-11-25 13:50:00 109 mm[Hg] [facility] Diastolic blood pressure 2022-11-25 13:50:00 76 mm[Hg] [facility] Heart rate 2022-11-25 13:50:00 89 /min [facility] Respiratory rate 2022-11-25 13:50:00 18 /min [facility] Body height 2022-11-25 13:50:00 160 cm [facility] Body weight 2022-11-25 13:50:00 53.071 kg [facility] BMI 2022-11-25 13:50:00 20.73 kg/m2 [facility] Body temperature 2022-06-16 17:18:00 35.83 Linda [facility] Body height 2022-06-16 17:18:00 160 cm [facility] Body weight 2022-06-16 17:18:00 50.44 kg [facility] BMI 2022-06-16 17:18:00 19.70 kg/m2 [facility] Systolic blood pressure 2022-06-01 05:18:00 94 mm[Hg] erp informed, asymptomatic [facility] Diastolic blood pressure 2022-06-01 05:18:00 71 mm[Hg] erp informed, asymptomatic [facility] Heart rate 2022-06-01 05:18:00 85 /min [facility] Respiratory rate 2022-06-01 05:18:00 18 /min [facility] Oxygen saturation in Arterial blood by Pulse oximetry 2022-06-01 05:18:00 100 /min [facility] Body temperature 2022-06-01 04:31:00 36.5 Linda [facility] Body height 2022-06-01 04:31:00 160 cm [facility] Body weight 2022-06-01 04:31:00 51.256 kg [facility] BMI 2022-06-01 04:31:00 20.02 kg/m2 [facility] Body temperature 2022-05-19 18:10:00 36.28 Linda [facility] Body weight 2022-05-19 18:10:00 51.256 kg [facility] BMI 2022-05-19 18:10:00 20.02 kg/m2 [facility] Body temperature 2022-04-21 20:32:00 36.22 Linda [facility] Body height 2022-04-21 20:32:00 160 cm [facility] Body weight 2022-04-21 20:32:00 50.349 kg [facility] BMI 2022-04-21 20:32:00 19.66 kg/m2 [facility] Systolic blood pressure 2022-04-11 03:10:00 110 mm[Hg] [facility] Diastolic blood pressure 2022-04-11 03:10:00 73 mm[Hg] [facility] Heart rate 2022-04-11 03:10:00 88 /min [facility] Respiratory rate 2022-04-11 03:10:00 18 /min [facility] Oxygen saturation in Arterial blood by Pulse oximetry 2022-04-11 03:10:00 100 /min [facility] Body temperature 2022-04-10 22:10:00 36.28 Linda [facility] Body weight 2022-04-10 22:10:00 49.896 kg [facility] BMI 2022-04-10 22:10:00 19.80 kg/m2 [facility] Systolic blood pressure 2022-04-10 21:48:00 108 mm[Hg] [facility] Diastolic blood pressure 2022-04-10 21:48:00 75 mm[Hg] [facility] Heart rate 2022-04-10 21:48:00 127 /min [facility] Body temperature 2022-04-10 21:48:00 36.61 Linda [facility] Respiratory rate 2022-04-10 21:48:00 17 /min [facility] Body height 2022-04-10 21:48:00 158.8 cm [facility] Body weight 2022-04-10 21:48:00 49.896 kg [facility] BMI 2022-04-10 21:48:00 19.80 kg/m2 [facility] Oxygen saturation in Arterial blood by Pulse oximetry 2022-04-10 21:48:00 98 /min [facility] Systolic blood pressure 2022-04-07 18:00:00 104 mm[Hg] [facility] Diastolic blood pressure 2022-04-07 18:00:00 58 mm[Hg] [facility] Heart rate 2022-04-07 18:00:00 64 /min [facility] Body temperature 2022-04-07 18:00:00 36.39 Linda [facility] Respiratory rate 2022-04-07 18:00:00 18 /min [facility] Oxygen saturation in Arterial blood by Pulse oximetry 2022-04-07 18:00:00 96 /min [facility] Body height 2022-04-04 23:00:18 161.3 cm [facility] Body weight 2022-04-04 23:00:18 50.349 kg [facility] BMI 2022-04-04 23:00:18 19.35 kg/m2 [facility] Heart rate 2022-04-04 21:03:00 109 /min [facility] Body temperature 2022-04-04 21:03:00 37.72 Linda [facility] Respiratory rate 2022-04-04 21:03:00 18 /min [facility] Oxygen saturation in Arterial blood by Pulse oximetry 2022-04-04 21:03:00 95 /min [facility] Systolic blood pressure 2022-04-04 21:00:00 98 mm[Hg] [facility] Diastolic blood pressure 2022-04-04 21:00:00 64 mm[Hg] [facility] Body height 2022-04-04 17:44:00 162.6 cm [facility] Body weight 2022-04-04 17:44:00 50.349 kg [facility] BMI 2022-04-04 17:44:00 19.05 kg/m2 [facility] Systolic blood pressure 2022-04-01 06:00:00 118 mm[Hg] [facility] Diastolic blood pressure 2022-04-01 06:00:00 92 mm[Hg] [facility] Heart rate 2022-04-01 06:00:00 78 /min [facility] Respiratory rate 2022-04-01 06:00:00 16 /min [facility] Oxygen saturation in Arterial blood by Pulse oximetry 2022-04-01 06:00:00 98 /min [facility] Body height 2022-04-01 03:48:00 160 cm [facility] Body weight 2022-04-01 03:48:00 56.7 kg [facility] BMI 2022-04-01 03:48:00 22.14 kg/m2 [facility] Height 2020-09-25 23:56:00 165.1 CM Weight 2020-09-25 23:56:00 2.69 KG Systolic blood pressure 2023-09-07 20:30:00 108 mm[Hg] [facility] Diastolic blood pressure 2023-09-07 20:30:00 71 mm[Hg] [facility] Heart rate 2023-09-07 20:30:00 111 /min [facility] Respiratory rate 2023-09-07 20:30:00 18 /min [facility] Body height 2023-09-07 20:30:00 160 cm [facility] Body weight 2023-09-07 20:30:00 54.885 kg [facility] BMI 2023-09-07 20:30:00 21.43 kg/m2 [facility] Oxygen saturation in Arterial blood by Pulse oximetry 2023-09-01 16:30:00 98 /min [facility] Systolic blood pressure 2023-07-19 17:00:00 101 mm[Hg] [facility] Diastolic blood pressure 2023-07-19 17:00:00 65 mm[Hg] [facility] Heart rate 2023-07-19 17:00:00 81 /min [facility] Body temperature 2023-07-19 17:00:00 37.11 Linda [facility] Respiratory rate 2023-07-19 17:00:00 16 /min [facility] Body weight 2023-07-19 17:00:00 55.339 kg [facility] BMI 2023-07-19 17:00:00 21.61 kg/m2 [facility] Oxygen saturation in Arterial blood by Pulse oximetry 2023-07-19 17:00:00 99 /min [facility] Body height 2023-07-13 21:40:00 160 cm [facility] Systolic blood pressure 2023-07-04 21:39:00 110 mm[Hg] [facility] Diastolic blood pressure 2023-07-04 21:39:00 69 mm[Hg] [facility] Heart rate 2023-07-04 21:39:00 92 /min [facility] Respiratory rate 2023-07-04 21:39:00 18 /min [facility] Body height 2023-07-04 21:39:00 165.1 cm [facility] Body weight 2023-07-04 21:39:00 54.795 kg [facility] BMI 2023-07-04 21:39:00 20.10 kg/m2 [facility] Systolic blood pressure 2023-06-20 20:22:00 108 mm[Hg] [facility] Diastolic blood pressure 2023-06-20 20:22:00 71 mm[Hg] [facility] Heart rate 2023-06-20 20:22:00 78 /min [facility] Respiratory rate 2023-06-20 20:22:00 18 /min [facility] Body height 2023-06-20 20:22:00 165.1 cm [facility] Body weight 2023-06-20 20:22:00 55.792 kg [facility] BMI 2023-06-20 20:22:00 20.47 kg/m2 [facility] Systolic blood pressure 2023-06-01 20:22:00 127 mm[Hg] [facility] Diastolic blood pressure 2023-06-01 20:22:00 87 mm[Hg] [facility] Heart rate 2023-06-01 20:22:00 105 /min [facility] Respiratory rate 2023-06-01 20:22:00 18 /min [facility] Body height 2023-06-01 20:22:00 165.1 cm [facility] Body weight 2023-06-01 20:22:00 58.06 kg [facility] BMI 2023-06-01 20:22:00 21.30 kg/m2 [facility] Body temperature 2023-05-23 14:11:00 36.83 Linda [facility] Systolic blood pressure 2023-05-09 20:51:00 119 mm[Hg] [facility] Diastolic blood pressure 2023-05-09 20:51:00 81 mm[Hg] [facility] Heart rate 2023-05-09 20:51:00 118 /min [facility] Respiratory rate 2023-05-09 20:51:00 18 /min [facility] Body height 2023-05-09 20:51:00 160 cm [facility] Body weight 2023-05-09 20:51:00 57.244 kg [facility] BMI 2023-05-09 20:51:00 22.36 kg/m2 [facility] Systolic blood pressure 2023-04-27 15:01:00 117 mm[Hg] [facility] Diastolic blood pressure 2023-04-27 15:01:00 78 mm[Hg] [facility] Heart rate 2023-04-27 15:01:00 126 /min [facility] Body temperature 2023-04-27 15:01:00 36.83 Linda [facility] Respiratory rate 2023-04-27 15:01:00 16 /min [facility] Body height 2023-04-27 15:01:00 160 cm [facility] Body weight 2023-04-27 15:01:00 56.337 kg [facility] BMI 2023-04-27 15:01:00 22.00 kg/m2 [facility] Oxygen saturation in Arterial blood by Pulse oximetry 2023-04-27 15:01:00 98 /min [facility] Systolic blood pressure 2023-04-18 19:50:00 117 mm[Hg] [facility] Diastolic blood pressure 2023-04-18 19:50:00 79 mm[Hg] [facility] Heart rate 2023-04-18 19:50:00 104 /min [facility] Respiratory rate 2023-04-18 19:50:00 18 /min [facility] Body height 2023-04-18 19:50:00 160 cm [facility] Body weight 2023-04-18 19:50:00 57.335 kg [facility] BMI 2023-04-18 19:50:00 22.39 kg/m2 [facility] Systolic blood pressure 2023-03-30 19:30:00 107 mm[Hg] [facility] Diastolic blood pressure 2023-03-30 19:30:00 75 mm[Hg] [facility] Heart rate 2023-03-30 19:30:00 109 /min [facility] Respiratory rate 2023-03-30 19:30:00 18 /min [facility] Body height 2023-03-30 19:30:00 160 cm [facility] Body weight 2023-03-30 19:30:00 55.43 kg [facility] BMI 2023-03-30 19:30:00 21.65 kg/m2 [facility] Systolic blood pressure 2023-03-16 19:30:00 108 mm[Hg] [facility] Diastolic blood pressure 2023-03-16 19:30:00 76 mm[Hg] [facility] Heart rate 2023-03-16 19:30:00 92 /min [facility] Respiratory rate 2023-03-16 19:30:00 18 /min [facility] Body height 2023-03-16 19:30:00 160 cm [facility] Body weight 2023-03-16 19:30:00 54.341 [facility] [facility] BMI 2023-03-16 19:30:00 21.22 kg/m2 [facility] Body temperature 2022-12-15 15:53:00 36.44 [facility] Body weight 2022-12-15 15:53:00 52.39 kg [facility] Systolic blood pressure 2022-12-05 13:53:00 120 mm[Hg] [facility] Diastolic blood pressure 2022-12-05 13:53:00 79 mm[Hg] [facility] Heart rate 2022-12-05 13:53:00 95 /min [facility] Respiratory rate 2022-12-05 13:53:00 18 /min [facility] Body height 2022-12-05 13:53:00 160 cm [facility] Body weight 2022-12-05 13:53:00 53.434 kg [facility] BMI 2022-12-05 13:53:00 20.87 kg/m2 [facility] Systolic blood pressure 2022-11-25 13:50:00 109 mm[Hg] [facility] Diastolic blood pressure 2022-11-25 13:50:00 76 mm[Hg] [facility] Heart rate 2022-11-25 13:50:00 89 /min [facility] Respiratory rate 2022-11-25 13:50:00 18 /min [facility] Body height 2022-11-25 13:50:00 160 cm [facility] Body weight 2022-11-25 13:50:00 53.071 kg [facility] BMI 2022-11-25 13:50:00 20.73 kg/m2 [facility] Systolic blood pressure 2022-10-31 14:07:00 126 mm[Hg] [facility] Diastolic blood pressure 2022-10-31 14:07:00 79 mm[Hg] [facility] Heart rate 2022-10-31 14:07:00 93 /min [facility] Respiratory rate 2022-10-31 14:07:00 18 /min [facility] Body height 2022-10-31 14:07:00 160 cm [facility] Body weight 2022-10-31 14:07:00 51.256 kg [facility] BMI 2022-10-31 14:07:00 20.02 kg/m2 [facility] Systolic blood pressure 2022-09-19 13:00:00 108 mm[Hg] [facility] Diastolic blood pressure 2022-09-19 13:00:00 83 mm[Hg] [facility] Heart rate 2022-09-19 13:00:00 88 /min [facility] Respiratory rate 2022-09-19 13:00:00 18 /min [facility] Body height 2022-09-19 13:00:00 160 cm [facility] Body weight 2022-09-19 13:00:00 51.256 kg [facility] BMI 2022-09-19 13:00:00 20.02 kg/m2 [facility] Systolic blood pressure 2022-08-22 15:53:00 117 mm[Hg] [facility] Diastolic blood pressure 2022-08-22 15:53:00 80 mm[Hg] [facility] Heart rate 2022-08-22 15:53:00 88 /min [facility] Respiratory rate 2022-08-22 15:53:00 18 /min [facility] Body height 2022-08-22 15:53:00 160 cm [facility] Body weight 2022-08-22 15:53:00 50.803 kg [facility] BMI 2022-08-22 15:53:00 19.84 kg/m2 [facility] Systolic blood pressure 2022-07-25 14:23:00 100 mm[Hg] [facility] Diastolic blood pressure 2022-07-25 14:23:00 78 mm[Hg] [facility] Heart rate 2022-07-25 14:23:00 107 /min [facility] Respiratory rate 2022-07-25 14:23:00 18 /min [facility] Body height 2022-07-25 14:23:00 160 cm [facility] Body weight 2022-07-25 14:23:00 50.803 kg [facility] BMI 2022-07-25 14:23:00 19.84 kg/m2 [facility] Body temperature 2022-06-16 17:18:00 35.83 [facility] Body height 2022-06-16 17:18:00 160 cm [facility] Body weight 2022-06-16 17:18:00 50.44 kg [facility] BMI 2022-06-16 17:18:00 19.70 kg/m2 [facility] Systolic blood pressure 2022-06-16 16:33:00 113 mm[Hg] [facility] Diastolic blood pressure 2022-06-16 16:33:00 79 mm[Hg] [facility] Heart rate 2022-06-16 16:33:00 112 /min [facility] Respiratory rate 2022-06-16 16:33:00 18 /min [facility] Body height 2022-06-16 16:33:00 160 cm [facility] Body weight 2022-06-16 16:33:00 51.256 kg [facility] BMI 2022-06-16 16:33:00 20.02 kg/m2 [facility] Systolic blood pressure 2022-06-13 16:37:00 117 mm[Hg] [facility] Diastolic blood pressure 2022-06-13 16:37:00 85 mm[Hg] [facility] Heart rate 2022-06-13 16:37:00 118 /min [facility] Respiratory rate 2022-06-13 16:37:00 18 /min [facility] Body height 2022-06-13 16:37:00 160 cm [facility] Body weight 2022-06-13 16:37:00 50.803 kg [facility] BMI 2022-06-13 16:37:00 19.84 kg/m2 [facility] Oxygen saturation in Arterial blood by Pulse oximetry 2022-06-01 05:18:00 100 /min [facility] Body temperature 2022-06-01 04:31:00 36.5 Linda [facility] Systolic blood pressure 2022-05-19 16:06:00 124 mm[Hg] [facility] Diastolic blood pressure 2022-05-19 16:06:00 85 mm[Hg] [facility] Heart rate 2022-05-19 16:06:00 103 /min [facility] Respiratory rate 2022-05-19 16:06:00 18 /min [facility] Body height 2022-05-19 16:06:00 160 cm [facility] Body weight 2022-05-19 16:06:00 51.256 kg [facility] BMI 2022-05-19 16:06:00 20.02 kg/m2 [facility] Systolic blood pressure 2022-05-02 13:53:00 115 mm[Hg] [facility] Diastolic blood pressure 2022-05-02 13:53:00 80 mm[Hg] [facility] Heart rate 2022-05-02 13:53:00 103 /min [facility] Respiratory rate 2022-05-02 13:53:00 18 /min [facility] Body height 2022-05-02 13:53:00 160 cm [facility] Body weight 2022-05-02 13:53:00 51.256 kg [facility] BMI 2022-05-02 13:53:00 20.02 kg/m2 [facility] Body temperature 2022-04-21 20:32:00 36.22 Linda [facility] Body height 2022-04-21 20:32:00 160 cm [facility] Body weight 2022-04-21 20:32:00 50.349 kg [facility] BMI 2022-04-21 20:32:00 19.66 kg/m2 [facility] Systolic blood pressure 2022-04-21 15:04:00 104 mm[Hg] [facility] Diastolic blood pressure 2022-04-21 15:04:00 71 mm[Hg] [facility] Heart rate 2022-04-21 15:04:00 110 /min [facility] Respiratory rate 2022-04-21 15:04:00 18 /min [facility] Body height 2022-04-21 15:04:00 157.5 cm [facility] Body weight 2022-04-21 15:04:00 49.896 kg [facility] BMI 2022-04-21 15:04:00 20.12 kg/m2 [facility] Systolic blood pressure 2022-04-11 03:10:00 110 mm[Hg] [facility] Diastolic blood pressure 2022-04-11 03:10:00 73 mm[Hg] [facility] Heart rate 2022-04-11 03:10:00 88 /min [facility] Respiratory rate 2022-04-11 03:10:00 18 /min [facility] Oxygen saturation in Arterial blood by Pulse oximetry 2022-04-11 03:10:00 100 /min [facility] Body temperature 2022-04-10 22:10:00 36.28 Linda [facility] Body weight 2022-04-10 22:10:00 49.896 kg [facility] BMI 2022-04-10 22:10:00 19.80 kg/m2 [facility] Body height 2022-04-10 21:48:00 158.8 cm [facility] Systolic blood pressure 2022-04-06 13:00:00 114 mm[Hg] [facility] Diastolic blood pressure 2022-04-06 13:00:00 71 mm[Hg] [facility] Heart rate 2022-04-06 13:00:00 92 /min [facility] Body temperature 2022-04-06 13:00:00 36.78 Linda [facility] Respiratory rate 2022-04-06 13:00:00 20 /min [facility] Oxygen saturation in Arterial blood by Pulse oximetry 2022-04-06 13:00:00 96 /min [facility] Body height 2022-04-04 23:00:18 161.3 cm [facility] Body weight 2022-04-04 23:00:18 50.349 kg [facility] BMI 2022-04-04 23:00:18 19.35 kg/m2 [facility] Systolic blood pressure 2022-03-28 14:54:00 116 mm[Hg] [facility] Diastolic blood pressure 2022-03-28 14:54:00 87 mm[Hg] [facility] Heart rate 2022-03-28 14:54:00 113 /min [facility] Respiratory rate 2022-03-28 14:54:00 18 /min [facility] Body height 2022-03-28 14:54:00 160 cm [facility] Body weight 2022-03-28 14:54:00 51.71 kg [facility] BMI 2022-03-28 14:54:00 20.19 kg/m2 [facility] Body temperature 2022-02-24 18:37:00 37 Linda [facility] Body weight 2022-02-24 18:37:00 51.801 kg [facility] BMI 2022-02-24 18:37:00 20.23 kg/m2 [facility] Systolic blood pressure 2022-02-21 12:51:00 133 mm[Hg] [facility] Diastolic blood pressure 2022-02-21 12:51:00 49 mm[Hg] [facility] Heart rate 2022-02-21 12:51:00 108 /min [facility] Respiratory rate 2022-02-21 12:51:00 18 /min [facility] Body height 2022-02-21 12:51:00 160 cm [facility] Oxygen saturation in Arterial blood by Pulse oximetry 2022-01-24 00:45:00 98 /min [facility] Head Occipital-frontal circumference by Tape measure 2009-07-13 18:51:00 51 cm [facility] Procedures Procedure Date / Time Performed Performing Clinician Source CONSENT/REFUSAL FOR DIAGNOSIS AND TREATMENT 2023-09-01 16:07:49 Doctor Unassigned, [place] [facility] ASSIGNMENT OF BENEFITS 2023-09-01 16:07:32 Docto r Unassigned, [place] [facility] ASSIGNMENT OF BENEFITS 2023-09-01 16:07:32 Docto r Unassigned, [place] [facility] CONSENT FOR CONTRACEPTION 2023-09-01 06:01:00 Do ctor Unassigned, [place] [facility] POCT TEST 2023-09-01 00:00:00 Alejandra Badillo [facility] POCT TEST 2023-09-01 00:00:00 Alejandra Badillo [facility] EXTERNAL PROVIDER RECORDS 2023-08-01 06:01:00 Do ctor Unassigned, [place] [facility] EXTERNAL PROVIDER RECORDS 2023-08-01 06:01:00 Do ctor Unassigned, [place] [facility] POCT SARS-COV-2 ANTIGEN (BINAX NOW) 2023-07-19 17:01:00 Vania Em [facility] POCT SARS-COV-2 ANTIGEN (BINAX NOW) 2023-07-19 17:01:00 Vania Em [facility] AUTHORIZATION FOR RELEASE OF PHI 2023-07-04 06:01:00 Doctor Unassigned, [place] [facility] AUTHORIZATION FOR RELEASE OF PHI 2023-07-04 06:01:00 Doctor Unassigned, [place] [facility] AUTHORIZATION FOR RELEASE OF PHI 2023-06-20 06:01:00 Doctor Unassigned, [place] [facility] AUTHORIZATION FOR RELEASE OF PHI 2023-06-20 06:01:00 Doctor Unassigned, [place] [facility] DISCLOSURE AND CONSENT MEDICAL & SURGICAL PROCEDURES - FEMALM 2023-05-23 06:01:00 Doctor Unassigned, [place] [facility] DISCLOSURE AND CONSENT MEDICAL & SURGICAL PROCEDURES - FEMALM 2023-05-23 06:01:00 Doctor Unassigned, [place] [facility] EXTERNAL PROVIDER RECORDS 2023-04-28 05:01:00 Do ctor Unassigned, [place] [facility] AUTHORIZATION TO RELEASE PHI TO [facility] 2023-04-27 05:01:00 Doctor Unassigned, [place] [facility] CONSENT/REFUSAL FOR DIAGNOSIS AND TREATMENT 2023-04-25 21:52:57 Doctor Unassigned, [place] [facility] CONSENT/REFUSAL FOR DIAGNOSIS AND TREATMENT 2023-04-25 21:52:57 Doctor Unassigned, [place] [facility] EMERGENCY SERVICES AGREEMENTS AND AUTHORIZATIONS 2023-04-25 05:01:00 Doctor Unassigned, [place] [facility] TEST, URINE 2023-03-16 20:47:00 Eva Valverde [facility] AUTHORIZATION FOR RELEASE OF PHI 2023-03-16 05:01:00 Doctor Unassigned, [place] [facility] AUTHORIZATION FOR RELEASE OF PHI 2023-03-16 05:01:00 Doctor Unassigned, [place] [facility] XR PELVIS 3+ VW 2022-12-15 15:31:[facility] 2022-12-15 15:31:00 Bouchra Mcintosh [facility] MENTAL HEALTH CLINICIAN CLINIC ULTRASOUND 2022-11-25 05:01:00 Doc tor Unassigned, [place] [facility] M[facility]IC ULTRASOUND 2022-11-25 05:01:00 Doc tor Unassigned, [place] [facility] PATIENT FINANCIAL POLICY 2022-10-31 14:21:09 Doctor Unassigned, [place] [facility] PATIENT FINANCIAL POLICY 2022-10-31 14:21:09 Doctor Unassigned, [place] [facility] AUTHORIZATION FOR RELEASE OF PHI 2022-10-07 05:01:00 Doctor Unassigned, [place] [facility] AUTHORIZATION FOR RELEASE OF PHI 2022-10-07 05:01:00 Doctor Unassigned, [place] [facility] AUTHORIZATION FOR RELEASE OF PHI 2022-09-06 06:01:00 Doctor Unassigned, [place] [facility] AUTHORIZATION FOR RELEASE OF PHI 2022-09-06 06:01:00 Doctor Unassigned, [place] [facility] XR PELVIS 3+ VW 2022-06-16 17:07:12 [facility] VW 2022-06-16 17:07:12 Bouchra Mcintosh [facility] CONSENT/REFUSAL FOR DIAGNOSIS AND TREATMENT 2022-06-01 04:17:40 Doctor Unassigned, [place] [facility] CONSENT/REFUSAL FOR DIAGNOSIS AND TREATMENT 2022-06-01 04:17:40 Doctor Unassigned, [place] [facility] EMERGENCY SERVICES AGREEMENTS AND AUTHORIZATIONS 2022-05-31 06:01:00 Doctor Unassigned, [place] [facility] XR PELVIS 3+ VW 2022-05-19 16:43:54 [facility]+ VW 2022-05-19 16:43:54 Arnaldo, [facility] XR PELVIS 3+ VW 2022-04-21 20:26:51 Bouchra Mcintosh [facility] XR HIPS 3 VW RIGHT 2022-04-11 02:02:47 Sis Robledo [facility] XR PELVIS <3 VW 2022-04-11 02:02:47 Irasema Robledo [facility] XR PELVIS <3 VW 2022-04-11 02:02:47 Irasema Robledo [facility] XR HIPS 3 VW RIGHT 2022-04-11 02:02:47 Sis Robledo [facility] POCT TEST 2022-04-11 01:46:00 Crystal Robledo [facility] POCT TEST 2022-04-11 01:46:00 Crystal Robledo [facility] URINALYSIS 2022-04-11 01:45:00 Venkat [facility] URINALYSIS 2022-04-11 01:45:00 Venkat [facility] COMP. METABOLIC PANEL (82182) 2022-04-10 23:02:00 Irasema Robledo [facility] CBC WITH DIFF 2022-04-10 23:02:00 Irasema Robledo [facility] CBC WITH DIFF 2022-04-10 23:02:00 Irasema Robledo [facility] COMP. METABOLIC PANEL ([id number]) 2022-04-10 23:02:00 Irasema Robledo [facility] EMERGENCY SERVICES AGREEMENTS AND AUTHORIZATIONS 2022-04-10 05:01:00 Doctor Unassigned, [place] [facility] EMERGENCY DEPARTMENT DOCUMENTS 2022-04-10 05:01:00 Doctor Unassigned, [place] [facility] XR CLAVICLE COMP BILATERAL 2022-04-05 19:40:00 Lobo Castano [facility] XR CLAVICLE COMP BILATERAL 2022-04-05 19:40:00 Lobo Castano [facility] URINALYSIS 2022-04-05 11:07:00 Pillo Garza [facility] URINALYSIS 2022-04-05 11:07:00 Greg, January [facility] CBC WITH DIFF 2022-04-05 10:24:00 Tasha Ny [facility] BASIC METABOLIC PANEL (NA, K, CL, CO2, GLUCOSE, BUN, CREATININE, CA) 2022-04-05 10:24:00 AnantJimena lopez [facility] BASIC METABOLIC PANEL (NA, K, CL, CO2, GLUCOSE, BUN, CREATININE, CA) 2022-04-05 10:24:00 [facility] 2022-04-05 10:24:00 AnantTasha lopez [facility] COVID-19 (ID NOW RAPID TESTING) 2022-04-05 00:38:00 AnantJimena lopez [facility] LAB ONLY COVID INTERPRETATION 2022-04-05 00:38:00 AnantJimena lopez [facility] COVID-19 (ID NOW RAPID TESTING) 2022-04-05 00:38:00 AnantJimena [facility] LAB ONLY COVID INTERPRETATION 2022-04-05 00:38:00 Jimena Ny [facility] TROPONIN I 2022-04-05 00:25:00 Chou Fair [facility] TROPONIN I 2022-04-05 00:25:00 Chou de Brigido Rodriguez [facility] XR SHOULDER 2+ VW RIGHT 2022-04-05 00:11:[address] [facility] XR KNEE 3 VW LEFT 2022-04-05 00:11:00 Chou Chun [facility] XR FOOT 3+ VW LEFT 2022-04-05 00:11:00 Chou Marcus [facility] XR PELVIS 3+ VW 2022-04-05 00:11:00 Saad Rossi [facility] XR KNEE <3 VW RIGHT 2022-04-05 00:11:00 Saad Rossi [facility] XR FOOT 3+ VW LEFT 2022-04-05 00:11:00 Choujames Marcus, [facility] XR KNEE <3 VW RIGHT 2022-04-05 00:11:00 [facility]W LEFT 2022-04-05 00:11:00 Chou Chun, [facility] XR PELVIS 3+ VW 2022-04-05 00:11:00 Saad Rossi [facility] XR SHOULDER 2+ VW RIGHT 2022-04-05 00:11:00 Orti james Marcus, [facility] HB ECG ROUTINE & RHYTHM STRIP 2022-04-04 23:08:36 Choujames Marcus [facility] HB ECG ROUTINE & RHYTHM STRIP 2022-04-04 23:08:36 Chou Marcus [facility] HB ABO GROUPING 2022-04-04 19:55:00 Nolvia Husain Un [facility] HB ABO GROUPING 2022-04-04 19:55:00 Nolvia Husain Un [facility] CT TRAUMA HEAD WO CONTRAST 2022-04-04 19:10:01 Nolvia Husain [facility] CT TRAUMA CERVICAL SPINE WO CONTRAST 2022-04-04 19:10:01 Nolvia Husain [facility] CT TRAUMA THORACIC SPINE WO CONTRAST 2022-04-04 19:10:01 Nolvia Husain [facility] CT TRAUMA LUMBAR SPINE WO CONTRAST 2022-04-04 19:10:01 Nolvia Husain [facility] CT TRAUMA HEAD WO CONTRAST 2022-04-04 19:10:01 Nolvia Husain [facility] CT TRAUMA CERVICAL SPINE WO CONTRAST 2022-04-04 19:10:01 Nolvia Husain [facility] CT TRAUMA THORACIC SPINE WO CONTRAST 2022-04-04 19:10:01 Nolvia Husain [facility] CT TRAUMA LUMBAR SPINE WO CONTRAST 2022-04-04 19:10:01 Nolvia Husain [facility] CT TRAUMA THORAX W CONTRAST 2022-04-04 19:08:[address] [facility] CT TRAUMA ABDOMEN PELVIS W CONTRAST 2022-04-04 19:08:26 [facility] TRAUMA THORAX W CONTRAST 2022-04-04 19:08:26 Emre HusainAdena [facility] CT TRAUMA ABDOMEN PELVIS W CONTRAST 2022-04-04 19:08:26 Emre HusainAdena [facility] ABORH CONFIRMATION (LAB ONLY) 2022-04-04 19:02:00 Nolvia Husain [facility] ABORH CONFIRMATION (LAB ONLY) 2022-04-04 19:02:00 Nolvia Husain [facility] LIPASE 2022-04-04 18:35:00 Nolvia Husain [facility] TEST, SERUM 2022-04-04 18:35:00 Simon Husain [facility] COMP. METABOLIC PANEL ([id number]) 2022-04-04 18:35:00 Nolvia Husain [facility] COMP. METABOLIC PANEL ([id number]) 2022-04-04 18:35:00 Nolvia Husain [facility] LIPASE 2022-04-04 18:35:00 Nolvia Husain [facility] TEST, SERUM 2022-04-04 18:35:00 Simon Husain [facility] CBC WITH DIFF 2022-04-04 18:20:00 Nolvia Husain [facility] CBC WITH DIFF 2022-04-04 18:20:00 Nolvia Husain [facility] EMERGENCY SERVICES AGREEMENTS AND AUTHORIZATIONS 2022-04-04 05:01:00 Doctor Unassigned, [place] [facility] EMERGENCY DEPARTMENT DOCUMENTS 2022-04-04 05:01:00 Doctor Unassigned, [place] [facility] EMERGENCY SERVICES AGREEMENTS AND AUTHORIZATIONS 2022-04-04 05:01:00 Doctor Unassigned, [place] [facility] EMERGENCY DEPARTMENT DOCUMENTS 2022-04-04 05:01:00 Doctor Unassigned, [place] [facility] POCT TEST 2022-04-01 04:37:00 Deonna Melendrez [facility] POCT TEST 2022-04-01 04:37:00 Deonna Melendrez [facility] LIPASE 2022-04-01 04:36:00 Deonna Melendrez [facility] COMP. METABOLIC PANEL ([id number]) 2022-04-01 04:36:00 Deonna Melendrez [facility] CBC WITH DIFF 2022-04-01 04:36:00 [facility] URINALYSIS 2022-04-01 04:36:00 Deonna Melendrez [facility] CBC WITH DIFF 2022-04-01 04:36:00 Deonna Melendrez [facility] COMP. METABOLIC PANEL ([id number]) 2022-04-01 04:36:00 Deonna Melendrez [facility] URINALYSIS 2022-04-01 04:36:00 Deonna Melendrez [facility] LIPASE 2022-04-01 04:36:00 Deonna Melendrez [facility] NOTICE OF PRIVACY PRACTICES 2022-04-01 03:37:12 Doctor Unassigned, [place] [facility] NOTICE OF PRIVACY PRACTICES 2022-04-01 03:37:12 Doctor Unassigned, [place] [facility] CONSENT/REFUSAL FOR DIAGNOSIS AND TREATMENT 2022-04-01 03:36:55 Doctor Unassigned, [place] [facility] CONSENT/REFUSAL FOR DIAGNOSIS AND TREATMENT 2022-04-01 03:36:55 Doctor Unassigned, [place] [facility] EMERGENCY SERVICES AGREEMENTS AND AUTHORIZATIONS 2022-03-31 05:01:00 Doctor Unassigned, [place] [facility] SARS-COV-2 COVID-19 MIKE-SUCROSE VACCINE 12 YRS+, BIVALENT 0.3ML, IM, (PFIZER ARITA TOP BOOSTER) 2022-03-17 16:49:14 Doctor Unassigned, [place] [facility] SARS-COV-2 COVID-19 MIKE-SUCROSE VACCINE 12 YRS+, BIVALENT 0.3ML, IM, (PFIZER ARITA TOP BOOSTER) 2022-03-17 16:49:14 Doctor Unassigned, [place] [facility] XR PELVIS 3+ VW 2022-02-24 18:13:00 Bouchra Mcintosh [facility] EXTERNAL PROVIDER RECORDS 2022-02-22 05:01:00 Do ctor Unassigned, [place] [facility] EMERGENCY SERVICES AGREEMENTS AND AUTHORIZATIONS 2022-01-23 05:01:00 Doctor Unassigned, [place] [facility] EMERGENCY DEPARTMENT DOCUMENTS 2022-01-23 05:01:00 Doctor Unassigned, [place] [facility] Encounters Start Date/Time End Date/Time Encounter Type Admission Type Attending Clinicians Care Facility Care Department Encounter ID Source 2022-09-19 17:53:01 Outpatient [facility] [id number] [facility] 2022-09-19 17:49:01 Outpatient [facility] [id number] [facility] 2021-11-02 11:00:33 Outpatient [facility] [id number] [facility] 2021-07-09 12:46:00 Inpatient [facility] [id number] [facility] 2021-05-25 23:19:00 Inpatient [facility] [id number] [facility] 2021-04-30 23:08:18 Emergency [facility] [id number] [facility] 2023-09-28 13:45:00 2023-09-28 13:45:00 Outpatient SUSAN AGUIRRE [facility] [id number] [facility] 2023-09-07 14:45:00 2023-09-07 15:17:41 Outpatient SUSAN AGUIRRE [facility] [id number] [facility] 2023-09-07 00:00:00 2023-09-07 00:00:00 Travel 1.2.840.1 [id number] .[id number] [id number] [id number] [facility] 2023-09-01 10:15:00 2023-09-01 11:36:26 Office Visit Alejandra Pardo 1.2.840.1 [id number] [id number] [facility] 2023-09-01 10:15:00 2023-09-01 10:15:00 Outpatient R SHEA-JACQUELINE S, ALEJANDRA SHEA-JACQUELINE S, ALEJANDRA [facility] [id number] [facility] 2023-09-01 00:00:00 2023-09-01 00:00:00 Orders Only Doctor Unassigned, [place] 1.2.840.1 [id number] .[id number] [facility] 2023-09-01 00:00:00 2023-09-01 00:00:00 Travel 1.2.840.1 [id number] .[id number] .[id number] [id number] [id number] [facility] 2023-08-11 13:00:00 2023-08-11 13:00:00 Outpatient R SHEA-JACQUELINE S, ALEJANDRA SHEA-JACQUELINE S, ALEJANDRA [facility] [id number] [facility] 2023-08-11 00:00:00 2023-08-11 00:00:00 Abby Ramirez 1.2.840.1 [id number] .[id number] .[id number] [facility] 2023-08-01 00:00:00 2023-08-01 00:00:00 Orders Only Doctor Unassigned, [place] 1.2.840.1 [id number] .[id number] [facility] 2023-07-31 14:45:00 2023-07-31 14:45:00 Outpatient R SHEA-JACQUELINE S, ALEJANDRA SHEA-JACQUELINE S, ALEJANDRA [facility] [id number] [facility] 2023-07-25 14:15:00 2023-07-25 14:15:00 Outpatient R NICOLLE [facility] [facility] [id number] [facility] 2023-07-19 11:00:00 2023-07-19 11:22:28 Outpatient R HANDY DOMINGUEZ [facility] [id number] [facility] 2023-07-19 11:00:00 2023-07-19 11:22:28 Urgent Care Unknown, Attending Handy Dominguez 1.2.840.1 90754.1.1 3.104.2.7 .3.030842 .8 [id number] [facility] 2023-07-19 00:00:00 2023-07-19 00:00:00 Travel 1.2.840.1 60536.1.1 3.104.2.7 .3.625701 .8 1.2.840.114 350.1.13.10 4.2.7.3.698 084.8 [id number] [facility] 2023-07-13 16:00:00 2023-07-13 16:06:46 Outpatient R ABBY LUKE [facility] [id number] [facility] 2023-07-13 16:00:00 2023-07-13 16:06:46 Office Visit Abby Luke 1.2.840.1 50934.1.1 3.104.2.7 .3.721576 .8 [id number] [facility] 2023-07-13 00:00:00 2023-07-13 00:00:00 Travel 1.2.840.1 99704.1.1 3.104.2.7 .3.423060 .8 1.2.840.114 350.1.13.10 4.2.7.3.698 084.8 [id number] [facility] 2023-07-07 11:30:00 2023-07-07 11:37:09 Outpatient R ROSALINDA John ALEJANDRA ROSALINDA Lopez ALEJANDRA [facility] [id number] [facility] 2023-07-07 11:30:00 2023-07-07 11:37:09 Office Visit Rosalinda Alejandra lpoez 1.2.840.1 81133.1.1 3.104.2.7 .3.206719 .8 [id number] [facility] 2023-07-07 00:00:00 2023-07-07 00:00:00 Travel 1.2.840.1 96674.1.1 3.104.2.7 .3.025736 .8 1.2.840.114 350.1.13.10 4.2.7.3.698 084.8 [id number] [facility] 2023-07-04 15:45:00 2023-07-04 16:12:14 Outpatient R SUSAN VALVERDE [facility] [id number] [facility] 2023-07-04 00:00:00 2023-07-04 00:00:00 Travel 1.2.840.1 72857.1.1 3.104.2.7 .3.714105 .8 1.2.840.114 350.1.13.10 4.2.7.3.698 084.8 [id number] [facility] 2023-07-04 00:00:00 2023-07-04 00:00:00 Orders Only Doctor Unassigned, [place] 1.2.840.1 51035.1.1 3.104.2.7 .3.525469 .8 [id number] [facility] 2023-06-29 09:30:00 2023-06-29 09:30:00 Outpatient R ROSALINDA John ALEJANDRAHENOK Lopez ALEJANDRA [facility] [id number] [facility] 2023-06-28 00:00:00 2023-06-28 00:00:00 Telephone Rosalinda Alejandra lopez 1.2.840.1 12940.1.1 3.104.2.7 .3.519070 .8 [id number] [facility] 2023-06-20 14:15:00 2023-06-20 14:49:59 Outpatient SUSAN AGUIRRE [facility] [id number] [facility] 2023-06-20 00:00:00 2023-06-20 00:00:00 Orders Only Doctor Unassigned, [place] 1.2.840.1 19223.1.1 3.104.2.7 .3.533344 .8 [id number] [facility] 2023-06-19 00:00:00 2023-06-19 00:00:00 Travel 1.2.840.1 86534.1.1 3.104.2.7 .3.085966 .8 1.2.840.114 350.1.13.10 4.2.7.3.698 084.8 [id number] [facility] 2023-06-01 14:15:00 2023-06-01 14:53:29 Outpatient SUSAN AGUIRRE [facility] [id number] [facility] 2023-05-31 00:00:00 2023-05-31 00:00:00 Travel 1.2.840.1 66301.1.1 3.104.2.7 .3.827733 .8 1.2.840.114 350.1.13.10 4.2.7.3.698 084.8 [id number] [facility] 2023-05-23 08:00:00 2023-05-23 10:07:15 Office Visit Alejandra Pardo 1.2.840.1 71314.1.1 3.104.2.7 .3.551900 .8 [id number] [facility] 2023-05-23 08:00:00 2023-05-23 08:00:00 Outpatient R ALEJANDRA PARDO SHUMBERTOALEJANDRA [facility] [id number] [facility] 2023-05-23 00:00:00 2023-05-23 00:00:00 Orders Only Doctor Unassigned, [place] 1.2.840.1 88857.1.1 3.104.2.7 .3.965814 .8 [id number] [facility] 2023-05-23 00:00:00 2023-05-23 00:00:00 Travel 1.2.840.1 76930.1.1 3.104.2.7 .3.786605 .8 1.2.840.114 350.1.13.10 4.2.7.3.698 084.8 [id number] [facility] 2023-05-18 08:30:00 2023-05-18 08:30:00 Outpatient R ALEJANDRA PARDOI ALEJANDRA Lopez [facility] [id number] [facility] 2023-05-09 15:15:00 2023-05-09 15:53:25 Outpatient R SUSAN VALVERDE [facility] [id number] [facility] 2023-05-09 00:00:00 2023-05-09 00:00:00 Travel 1.2.840.1 21167.1.1 3.104.2.7 .3.274814 .8 1.2.840.114 350.1.13.10 4.2.7.3.698 084.8 [id number] [facility] 2023-05-05 00:00:00 2023-05-05 00:00:00 Travel 1.2.840.1 33233.1.1 3.104.2.7 .3.477715 .8 1.2.840.114 350.1.13.10 4.2.7.3.698 084.8 [id number] [facility] 2023-04-27 10:00:00 2023-04-27 10:13:12 Outpatient R SHEA-JACQUELINE S, ALEJANDRA SHABBIR-JACQUELINE S ALEJANDRA [facility] [id number] [facility] 2023-04-27 10:00:00 2023-04-27 10:13:12 Office Visit SheaMikkiJacqueline Kristofer lopezl 1.2.840.1 83986.1.1 3.104.2.7 .3.326225 .8 [id number] [facility] 2023-04-27 00:00:00 2023-04-27 00:00:00 Telephone SheaMikkiJacqueline Kristofer lopezl 1.2.840.1 88290.1.1 3.104.2.7 .3.461075 .8 [id number] [facility] 2023-04-27 00:00:00 2023-04-27 00:00:00 Travel 1.2.840.1 27963.1.1 3.104.2.7 .3.774572 .8 1.2.840.114 350.1.13.10 4.2.7.3.698 084.8 [id number] [facility] 2023-04-25 17:02:00 2023-04-25 19:29:00 Emergency X DEONNA MELENDREZ [facility] [id number] [facility] 2023-04-25 17:02:00 2023-04-25 19:29:00 Emergency Deonna Melendrez 1.2.840.1 72683.1.1 3.104.2.7 .3.867059 .8 [id number] [facility] 2023-04-25 00:00:00 2023-04-25 00:00:00 Telephone Rosalinda john Alejandra 1.2.840.1 13652.1.1 3.104.2.7 .3.232739 .8 [id number] [facility] 2023-04-25 00:00:00 2023-04-25 00:00:00 Travel 1.2.840.1 70646.1.1 3.104.2.7 .3.815676 .8 1.2.840.114 350.1.13.10 4.2.7.3.698 084.8 [id number] [facility] 2023-04-18 14:45:00 2023-04-18 15:22:10 Outpatient R SUSAN VALVERDE [facility] [id number] [facility] 2023-04-18 00:00:00 2023-04-18 00:00:00 Travel 1.2.840.1 70234.1.1 3.104.2.7 .3.993825 .8 1.2.840.114 350.1.13.10 4.2.7.3.698 084.8 [id number] [facility] 2023-04-14 00:00:00 2023-04-14 00:00:00 Travel 1.2.840.1 01725.1.1 3.104.2.7 .3.899569 .8 1.2.840.114 350.1.13.10 4.2.7.3.698 084.8 [id number] [facility] 2023-04-03 14:15:00 2023-04-03 14:15:00 Correctional Manager Visit Godwin Handy, Ang - Db 1.2.840.1 43399.1.1 3.104.2.7 .3.916565 .8 [id number] [facility] 2023-04-03 14:15:00 2023-04-03 11:18:40 Outpatient R PAMELA GODWIN [facility] [id number] [facility] 2023-04-03 00:00:00 2023-04-03 00:00:00 Travel 1.2.840.1 92543.1.1 3.104.2.7 .3.932442 .8 1.2.840.114 350.1.13.10 4.2.7.3.698 084.8 [id number] [facility] 2023-03-30 14:45:00 2023-03-30 15:21:13 Outpatient R SUSAN VALVERDE [facility] [id number] [facility] 2023-03-30 00:00:00 2023-03-30 00:00:00 Travel 1.2.840.1 97124.1.1 3.104.2.7 .3.525949 .8 1.2.840.114 350.1.13.10 4.2.7.3.698 084.8 [id number] [facility] 2023-03-16 15:45:00 2023-03-16 16:00:00 Correctional Manager Visit Susan Valverde Pcp-Lab 1.2.840.1 50440.1.1 3.104.2.7 .3.353311 .8 [id number] [facility] 2023-03-16 14:45:00 2023-03-16 15:29:18 Outpatient SUSAN AGUIRRE [facility] [id number] [facility] 2023-03-16 00:00:00 2023-03-16 00:00:00 Travel 1.2.840.1 63207.1.1 3.104.2.7 .3.479214 .8 1.2.840.114 350.1.13.10 4.2.7.3.698 084.8 [id number] [facility] 2023-03-16 00:00:00 2023-03-16 00:00:00 Orders Only Doctor Unassigned, [place] 1.2.840.1 32698.1.1 3.104.2.7 .3.187984 .8 [id number] [facility] 2022-12-29 00:00:00 2022-12-29 00:00:00 Patient Secure Msg Pcp, Patient Does Not Have A [facility] 1.2.840.114 350.1.13.10 4.2.7.2.686 [id number] [facility] 2022-12-15 10:07:57 2022-12-15 23:59:00 Hospital Encounter Bouchra Mcintosh 1.2.840.1 97852.1.1 3.104.2.7 .3.937996 .8 [id number] [facility] 2022-12-15 10:30:00 2022-12-15 11:21:10 Outpatient R BOUCHRA MCINTOSH [facility] [id number] [facility] 2022-12-15 10:30:00 2022-12-15 11:21:10 Office Visit Bouchra Mcintosh 1.2.840.1 84208.1.1 3.104.2.7 .3.646625 .8 [id number] [facility] 2022-12-15 00:00:00 2022-12-15 00:00:00 Travel 1.2.840.1 87267.1.1 3.104.2.7 .3.645429 .8 1.2.840.114 350.1.13.10 4.2.7.3.698 084.8 [id number] [facility] 2022-12-05 08:45:00 2022-12-05 10:19:40 Outpatient R JAMES JACOBS [facility] [id number] [facility] 2022-12-05 00:00:00 2022-12-05 00:00:00 Travel 1.2.840.1 82373.1.1 3.104.2.7 .3.109801 .8 1.2.840.114 350.1.13.10 4.2.7.3.698 084.8 [id number] [facility] 2022-12-02 10:45:00 2022-12-02 10:45:00 Outpatient R [facility] [id number] [facility] 2022-11-25 08:30:00 2022-11-25 09:09:48 Outpatient R SHEA-JACQUELINE S, ALEJANDRA SHEA-JACQUELINE S, ALEJANDRA [facility] [id number] [facility] 2022-11-25 08:30:00 2022-11-25 09:09:48 Office Visit Shea-Jacqueline sHumbertoAlejandra 1.2.840.1 24805.1.1 3.104.2.7 .3.715329 .8 [id number] [facility] 2022-11-25 00:00:00 2022-11-25 00:00:00 Travel 1.2.840.1 60399.1.1 3.104.2.7 .3.819277 .8 1.2.840.114 350.1.13.10 4.2.7.3.698 084.8 [id number] [facility] 2022-11-25 00:00:00 2022-11-25 00:00:00 Orders Only Doctor Unassigned, [place] 1.2.840.1 88796.1.1 3.104.2.7 .3.014648 .8 [id number] [facility] 2022-10-31 09:30:00 2022-10-31 10:46:48 Outpatient R TEJAL FORD [facility] [id number] [facility] 2022-10-31 00:00:00 2022-10-31 00:00:00 Orders Only Doctor Unassigned, [place] 1.2.840.1 43472.1.1 3.104.2.7 .3.448632 .8 [id number] [facility] 2022-10-31 00:00:00 2022-10-31 00:00:00 Travel 1.2.840.1 12327.1.1 3.104.2.7 .3.372773 .8 1.2.840.114 350.1.13.10 4.2.7.3.698 084.8 [id number] [facility] 2022-10-07 00:00:00 2022-10-07 00:00:00 Orders Only Doctor Unassigned, [place] 1.2.840.1 89571.1.1 3.104.2.7 .3.438148 .8 [id number] [facility] 2022-09-19 08:00:00 2022-09-19 09:02:03 Outpatient TEJAL PARHAM [facility] [id number] [facility] 2022-09-19 00:00:00 2022-09-19 00:00:00 Travel 1.2.840.1 66986.1.1 3.104.2.7 .3.318484 .8 1.2.840.114 350.1.13.10 4.2.7.3.698 084.8 [id number] [facility] 2022-09-09 00:00:00 2022-09-09 00:00:00 Patient Secure Msg Doctor Unassigned, [place] [facility] 1.2.840.114 350.1.13.10 4.2.7.2.686 [id number] [facility] 2022-09-06 00:00:00 2022-09-06 00:00:00 Orders Only Doctor Unassigned, [place] 1.2.840.1 96215.1.1 3.104.2.7 .3.332729 .8 [id number] [facility] 2022-08-22 10:15:00 2022-08-22 12:05:25 Outpatient R JAMES JACOBS [facility] [id number] [facility] 2022-08-22 00:00:00 2022-08-22 00:00:00 Travel 1.2.840.1 24225.1.1 3.104.2.7 .3.670791 .8 1.2.840.114 350.1.13.10 4.2.7.3.698 084.8 [id number] [facility] 2022-07-25 08:45:00 2022-07-25 10:27:30 [facility] [id number] 2022-07-25 00:00:00 2022-07-25 00:00:00 Travel 1.2.840.1 37630.1.1 3.104.2.7 .3.982876 .8 1.2.840.114 350.1.13.10 4.2.7.3.698 084.8 [id number] [facility] 2022-07-15 19:20:00 2022-07-15 21:08:00 Emergency EM Jose Guzmán HCATB EO3 [id number] [facility] [place] 2022-07-04 16:22:00 2022-07-04 17:00:00 Emergency EM Eric Moore HCAPM GAYLA [id number] [facility] 2022-06-16 10:58:02 2022-06-16 23:59:00 Hospital Encounter Bouchra Mcintosh 1.2.840.1 42645.1.1 3.104.2.7 .3.041960 .8 [id number] [facility] 2022-06-16 10:20:00 2022-06-16 11:48:13 Outpatient R BOUCHRA MCINTOSH [facility] [id number] [facility] 2022-06-16 10:20:00 2022-06-16 11:48:13 Office Visit Bouchra Mcintosh 1.2.840.1 98697.1.1 3.104.2.7 .3.740614 .8 [id number] [facility] 2022-06-16 00:00:00 2022-06-16 00:00:00 Travel 1.2.840.1 69429.1.1 3.104.2.7 .3.190510 .8 1.2.840.114 350.1.13.10 4.2.7.3.698 084.8 [id number] [facility] 2022-06-13 11:00:00 2022-06-13 11:34:17 Outpatient R SELF JAMES [facility] [id number] [facility] 2022-06-13 00:00:00 2022-06-13 00:00:00 Travel 1.2.840.1 26430.1.1 3.104.2.7 .3.396785 .8 1.2.840.114 350.1.13.10 4.2.7.3.698 084.8 [id number] [facility] 2022-05-31 22:37:00 2022-06-01 00:11:00 Emergency X DEONNA MELENDREZ [facility] [id number] [facility] 2022-05-31 22:37:00 2022-06-01 00:11:00 Emergency Deonna Melendrez S 1.2.840.1 32854.1.1 3.104.2.7 .3.357771 .8 [id number] [facility] 2022-05-31 00:00:00 2022-05-31 00:00:00 Travel 1.2.840.1 76305.1.1 3.104.2.7 .3.166737 .8 1.2.840.114 350.1.13.10 4.2.7.3.698 084.8 [id number] [facility] 2022-05-23 10:15:00 2022-05-23 10:15:00 Outpatient R SELFJAMES [facility] [id number] [facility] 2022-05-19 10:33:33 2022-05-19 23:59:00 Hospital Encounter Bouchra Mcintosh 1.2.840.1 88208.1.1 3.104.2.7 .3.253516 .8 [id number] [facility] 2022-05-19 12:50:00 2022-05-19 12:50:00 Office Visit Bouchra Mcintosh 1.2.840.1 47431.1.1 3.104.2.7 .3.922602 .8 [id number] [facility] 2022-05-19 12:50:00 2022-05-19 12:42:46 Outpatient Escobar BOUCHRA MCINTOSH [facility] [id number] [facility] 2022-05-19 00:00:00 2022-05-19 00:00:00 Travel 1.2.840.1 86995.1.1 3.104.2.7 .3.502823 .8 1.2.840.114 350.1.13.10 4.2.7.3.698 084.8 [id number] [facility] 2022-05-02 08:45:00 2022-05-02 09:32:43 Outpatient R JAMES JACOBS [facility] [id number] [facility] 2022-05-02 00:00:00 2022-05-02 00:00:00 Travel 1.2.840.1 59060.1.1 3.104.2.7 .3.520621 .8 1.2.840.114 350.1.13.10 4.2.7.3.698 084.8 [id number] [facility] 2022-04-21 15:08:38 2022-04-21 23:59:00 Outpatient R ARNALDO BOUCHRA [facility] [id number] [facility] 2022-04-21 15:08:38 2022-04-21 23:59:00 Hospital Encounter Bouchra Mcintosh 1.2.840.1 92339.1.1 3.104.2.7 .3.492560 .8 [id number] [facility] 2022-04-21 15:20:00 2022-04-21 16:19:45 Office Visit Bouchra Mcintosh 1.2.840.1 90924.1.1 3.104.2.7 .3.255251 .8 [id number] [facility] 2022-04-21 00:00:00 2022-04-21 00:00:00 Travel 1.2.840.1 80075.1.1 3.104.2.7 .3.024194 .8 1.2.840.114 350.1.13.10 4.2.7.3.698 084.8 [id number] [facility] 2022-04-10 17:11:00 2022-04-10 22:14:00 Emergency X IRASEMA ROBLEDO [facility] [id number] [facility] 2022-04-10 17:11:00 2022-04-10 22:14:00 Emergency Irasema Robledo 1.2.840.1 69382.1.1 3.104.2.7 .3.559150 .8 [id number] [facility] 2022-04-10 16:40:00 2022-04-10 18:22:07 Urgent Care [facility]iv[facility] 1.2.840.1 15786.1.1 3.104.2.7 .3.731155 .8 [id number] [facility] 2022-04-10 16:40:00 2022-04-10 16:40:00 Outpatient R SHIVANI GUERRA [facility] [id number] [facility] 2022-04-10 00:00:00 2022-04-10 00:00:00 Travel 1.2.840.1 09377.1.1 3.104.2.7 .3.378535 .8 1.2.840.114 350.1.13.10 4.2.7.3.698 084.8 [id number] [facility] 2022-04-08 00:00:00 2022-04-08 00:00:00 Transition of Care Negrita Moise 1.2.840.1 61739.1.1 3.104.2.7 .3.290181 .8 [id number] [facility] 2022-04-04 17:33:00 2022-04-07 17:00:00 Hospital Encounter Keagan Luo 1.2.840.1 .1.1 3.104.2.7 .3.943170 .8 [id number] [facility] 2022-04-06 00:00:00 2022-04-06 00:00:[address] [facility] Transition 1.2.840.1 09753.1.1 3.104.2.7 .3.711567 .8 [id number] [facility] 2022-04-04 12:41:00 2022-04-04 16:56:00 Emergency X NOLVIA HUSAIN [facility] [id number] [facility] 2022-04-04 12:41:00 2022-04-04 16:56:00 Emergency X NOLVIA HUSAIN [facility] [id number] [facility] 2022-04-04 12:41:00 2022-04-04 16:56:00 Emergency Nolvia Husain 1.2.840.1 24355.1.1 3.104.2.7 .3.506838 .8 [id number] [facility] 2022-04-04 00:00:00 2022-04-04 00:00:00 Travel 1.2.840.1 49933.1.1 3.104.2.7 .3.127188 .8 1.2.840.114 350.1.13.10 4.2.7.3.698 084.8 [id number] [facility] 2022-03-31 22:46:00 2022-04-01 01:29:00 Emergency X DEONNA MELENDREZ [facility] [id number] [facility] 2022-03-31 22:46:00 2022-04-01 01:29:00 Emergency Deonna Melendrez S 1.2.840.1 98193.1.1 3.104.2.7 .3.106903 .8 [id number] [facility] 2022-03-31 00:00:00 2022-03-31 00:00:00 Orders Only Doctor Unassigned, [place] 1.2.840.1 16330.1.1 3.104.2.7 .3.283539 .8 [id number] [facility] 2022-03-31 00:00:00 2022-03-31 00:00:00 Travel 1.2.840.1 19182.1.1 3.104.2.7 .3.450568 .8 1.2.840.114 350.1.13.10 4.2.7.3.698 084.8 [id number] [facility] 2022-03-28 10:15:00 2022-03-28 12:05:24 Outpatient JAMES MCINTOSH [facility] [id number] [facility] 2022-03-28 00:00:00 2022-03-28 00:00:00 Travel 1.2.840.1 03664.1.1 3.104.2.7 .3.570922 .8 1.2.840.114 350.1.13.10 4.2.7.3.698 084.8 [id number] [facility] 2022-03-17 11:30:00 2022-03-17 12:25:54 Imm/Inj Visit Vignesh Parsons [place] 1.2.840.1 30125.1.1 3.104.2.7 .3.384190 .8 [id number] [facility] 2022-03-17 10:30:00 2022-03-17 11:13:04 Outpatient Escobar FREDERICK VIGNESH [facility] [id number] [facility] 2022-03-17 00:00:00 2022-03-17 00:00:00 Travel 1.2.840.1 05906.1.1 3.104.2.7 .3.929428 .8 1.2.840.114 350.1.13.10 4.2.7.3.698 084.8 [id number] [facility] 2022-02-24 13:02:19 2022-02-24 23:59:00 Hospital Encounter Bouchra Mcintosh 1.2.840.1 04367.1.1 3.104.2.7 .3.449348 .8 [id number] [facility] 2022-02-24 13:02:19 2022-02-24 23:59:00 Hospital Encounter Bouchra Mcintosh 1.2.840.1 46446.1.1 3.104.2.7 .3.586125 .8 [id number] [facility] 2022-02-24 13:00:00 2022-02-24 14:33:28 Outpatient Escboar BOUCHRA MCINTOSH [facility] [id number] [facility] 2022-02-24 13:00:00 2022-02-24 14:33:28 Office Visit Bouchra Mcintosh 1.2.840.1 97063.1.1 3.104.2.7 .3.219594 .8 [id number] [facility] 2022-02-24 13:00:00 2022-02-24 13:00:00 Outpatient BOUCHRA PATEL [facility] [id number] [facility] 2022-02-24 00:00:00 2022-02-24 00:00:00 Travel 1.2.840.1 14134.1.1 3.104.2.7 .3.519893 .8 1.2.840.114 350.1.13.10 4.2.7.3.698 084.8 [id number] [facility] 2022-02-22 00:00:00 2022-02-22 00:00:00 Orders Only Doctor Unassigned, [place] 1.2.840.1 76796.1.1 3.104.2.7 .3.908228 .8 [id number] [facility] 2022-02-22 00:00:00 2022-02-22 00:00:00 Orders Only Doctor Unassigned, [place] 1.2.840.1 12950.1.1 3.104.2.7 .3.799693 .8 [id number] [facility] 2022-02-21 08:00:00 2022-02-21 08:48:33 Outpatient JAMES MCINTOSH [facility] [id number] [facility] 2022-02-21 00:00:00 2022-02-21 00:00:00 Travel 1.2.840.1 59840.1.1 3.104.2.7 .3.664128 .8 1.2.840.114 350.1.13.10 4.2.7.3.698 084.8 [id number] [facility] 2022-02-21 00:00:00 2022-02-21 00:00:00 Travel 1.2.840.1 74701.1.1 3.104.2.7 .3.459371 .8 1.2.840.114 350.1.13.10 4.2.7.3.698 084.8 [id number] [facility] 2022-01-23 19:42:00 2022-01-23 21:04:00 Emergency X Kitty [facility] [id number] [facility] 2022-01-23 19:42:00 2022-01-23 21:04:00 Emergency Kitty Kessler 1.2.840.1 56293.1.1 3.104.2.7 .3.721011 .8 [id number] [facility] 2022-01-23 19:42:00 2022-01-23 21:04:00 Emergency Kitty Kessler 1.2.840.1 15725.1.1 3.104.2.7 .3.144650 .8 [id number] [facility] 2022-01-23 00:00:00 2022-01-23 00:00:00 Travel 1.2.840.1 44814.1.1 3.104.2.7 .3.908747 .8 1.2.840.114 350.1.13.10 4.2.7.3.698 084.8 [id number] [facility] 2022-01-23 00:00:00 2022-01-23 00:00:00 Travel 1.2.840.1 40229.1.1 3.104.2.7 .3.088421 .8 1.2.840.114 350.1.13.10 4.2.7.3.698 084.8 [id number] [facility] 2022-01-17 10:15:00 2022-01-17 11:23:04 Outpatient R SELFJAMES [facility] [id number] [facility] 2022-01-17 10:15:00 2022-01-17 11:23:04 Outpatient R SELFPENNYJAMES [facility] [id number] [facility] 2022-01-17 00:00:00 2022-01-17 00:00:00 Travel 1.2.840.1 95351.1.1 3.104.2.7 .3.899706 .8 1.2.840.114 350.1.13.10 4.2.7.3.698 084.8 [id number] [facility] 2022-01-17 00:00:00 2022-01-17 00:00:00 Travel 1.2.840.1 53499.1.1 3.104.2.7 .3.681692 .8 1.2.840.114 350.1.13.10 4.2.7.3.698 084.8 [id number] [facility] 2021-12-31 16:00:00 2021-12-31 17:22:54 Outpatient R ASH RAMIREZ [facility] [id number] [facility] 2021-12-31 16:00:00 2021-12-31 17:22:54 Office Visit Ash Ramirez Vivian L 1.2.840.1 02481.1.1 3.104.2.7 .3.389799 .8 [id number] [facility] 2021-12-31 16:00:00 2021-12-31 17:22:54 Office Visit Ash Ramirez Vivian L 1.2.840.1 04959.1.1 3.104.2.7 .3.755342 .8 [id number] [facility] 2021-12-31 16:00:00 2021-12-31 16:00:00 Outpatient R ASH RAMIREZ [facility] [id number] [facility] 2021-12-31 00:00:00 2021-12-31 00:00:00 Travel 1.2.840.1 35323.1.1 3.104.2.7 .3.386137 .8 1.2.840.114 350.1.13.10 4.2.7.3.698 084.8 [id number] [facility] 2021-12-31 00:00:00 2021-12-31 00:00:00 Travel 1.2.840.1 51020.1.1 3.104.2.7 .3.793318 .8 1.2.840.114 350.1.13.10 4.2.7.3.698 084.8 [id number] [facility] 2021-12-20 10:30:00 2021-12-20 11:58:18 Outpatient Escobar JAMES JACOBS [facility] [id number] [facility] 2021-12-20 00:00:00 2021-12-20 00:00:00 Travel 1.2.840.1 87737.1.1 3.104.2.7 .3.857899 .8 1.2.840.114 350.1.13.10 4.2.7.3.698 084.8 [id number] [facility] 2021-12-20 00:00:00 2021-12-20 00:00:00 Travel 1.2.840.1 84831.1.1 3.104.2.7 .3.457253 .8 1.2.840.114 350.1.13.10 4.2.7.3.698 084.8 [id number] [facility] 2021-12-20 00:00:00 2021-12-20 00:00:00 Travel 1.2.840.1 03335.1.1 3.104.2.7 .3.176251 .8 1.2.840.114 350.1.13.10 4.2.7.3.698 084.8 [id number] [facility] 2021-12-13 08:00:00 2021-12-13 08:00:00 Outpatient HANDY BOWMAN [facility] [id number] [facility] 2021-12-06 12:00:00 2021-12-06 12:16:45 Urgent Care Shivani Guerra [place] 1.2.840.1 00766.1.1 3.104.2.7 .3.325246 .8 [id number] [facility] 2021-12-06 12:00:00 2021-12-06 12:16:45 Urgent Care Shivani Gurera Amanda 1.2.840.1 63372.1.1 3.104.2.7 .3.832786 .8 [id number] [facility] 2021-12-06 12:00:00 2021-12-06 12:16:45 Outpatient AKIKO CALLEJAS [facility] [id number] [facility] 2021-12-06 12:00:00 2021-12-06 12:16:45 Urgent Care Shivani Guerra Amanda 1.2.840.1 47400.1.1 3.104.2.7 .3.010338 .8 [id number] [facility] 2021-12-06 00:00:00 2021-12-06 00:00:00 Travel 1.2.840.1 21025.1.1 3.104.2.7 .3.238617 .8 1.2.840.114 350.1.13.10 4.2.7.3.698 084.8 [id number] [facility] 2021-12-06 00:00:00 2021-12-06 00:00:00 Travel 1.2.840.1 78900.1.1 3.104.2.7 .3.693806 .8 1.2.840.114 350.1.13.10 4.2.7.3.698 084.8 [id number] [facility] 2021-12-06 00:00:00 2021-12-06 00:00:00 Travel 1.2.840.1 92357.1.1 3.104.2.7 .3.234332 .8 1.2.840.114 350.1.13.10 4.2.7.3.698 084.8 [id number] [facility] 2021-11-26 15:00:00 2021-11-26 15:40:48 Office Visit Ash Ramirez 1.2.840.1 07726.1.1 3.104.2.7 .3.533975 .8 [id number] [facility] 2021-11-26 15:00:00 2021-11-26 15:40:48 Outpatient R ASH RAMIREZ [facility] [id number] [facility] 2021-11-26 15:00:00 2021-11-26 15:40:48 Office Visit Ash Ramirez 1.2.840.1 66322.1.1 3.104.2.7 .3.344169 .8 [id number] [facility] 2021-11-26 15:00:00 2021-11-26 15:00:00 Outpatient R ASH RAMIREZ [facility] [id number] [facility] 2021-11-26 00:00:00 2021-11-26 00:00:00 Travel 1.2.840.1 43815.1.1 3.104.2.7 .3.664201 .8 1.2.840.114 350.1.13.10 4.2.7.3.698 084.8 [id number] [facility] 2021-11-26 00:00:00 2021-11-26 00:00:00 Travel 1.2.840.1 49954.1.1 3.104.2.7 .3.806479 .8 1.2.840.114 350.1.13.10 4.2.7.3.698 084.8 [id number] [facility] 2021-11-23 14:00:00 2021-11-23 14:00:00 Outpatient R ASH RAMIREZ [facility] [id number] [facility] 2021-11-19 17:58:13 2021-11-19 23:59:00 Hospital Encounter Vania Em 1.2.840.1 95179.1.1 3.104.2.7 .3.149343 .8 [id number] [facility] 2021-11-19 17:58:13 2021-11-19 23:59:00 Outpatient R VANIA EM [facility] [id number] [facility] 2021-11-19 17:58:13 2021-11-19 23:59:00 Hospital Encounter Vania Em [facility] 1.2840.114 350.1.13.10 4.2.7.2.686 [id number] [facility] 2021-11-19 17:58:13 2021-11-19 23:59:00 Hospital Encounter Vania Em 1.2.840.1 51028.1.1 3.104.2.7 .3.046610 .8 [id number] [facility] 2021-11-19 17:20:00 2021-11-19 18:04:46 Urgent Care Vania Em 1.2.840.1 35019.1.1 3.104.2.7 .3.892188 .8 [id number] [facility] 2021-11-19 17:20:00 2021-11-19 18:04:46 Urgent Care Vania Em [facility] 1.2840.114 350.1.13.10 4.2.7.2.686 [id number] [facility] 2021-11-19 17:20:00 2021-11-19 18:04:46 Urgent Care Vania Em 1.2.840.1 48610.1.1 3.104.2.7 .3.585697 .8 [id number] [facility] 2021-11-19 00:00:00 2021-11-19 00:00:00 Travel 1.2.840.1 11652.1.1 3.104.2.7 .3.410451 .8 1.2.840.114 350.1.13.10 4.2.7.3.698 084.8 [id number] [facility] 2021-11-19 00:00:00 2021-11-19 00:00:00 Travel 1.2.840.1 36708.1.1 3.104.2.7 .3.505179 .8 1.2.840.114 350.1.13.10 4.2.7.3.698 084.8 [id number] [facility] 2021-11-17 14:45:00 2021-11-17 14:45:00 Outpatient LUCINDA PHAN [facility] [id number] [facility] 2021-11-17 14:45:00 2021-11-17 14:45:00 Outpatient LUCINDA PHAN [facility] [id number] [facility] 2021-11-16 00:00:00 2021-11-16 00:00:00 Telephone Lucinda Wills 1.2.840.1 26674.1.1 3.104.2.7 .3.239206 .8 [id number] [facility] 2021-11-16 00:00:00 2021-11-16 00:00:00 Telephone Lucinda Wills 1.2.840.1 94625.1.1 3.104.2.7 .3.846678 .8 [id number] [facility] 2021-11-16 00:00:00 2021-11-16 00:00:00 Telephone Lucinda Wills 1.2.840.1 83081.1.1 3.104.2.7 .3.135837 .8 [id number] [facility] 2021-11-08 11:15:00 2021-11-08 11:40:32 Outpatient JAMES MCINTOSH [facility] [id number] [facility] 2021-11-08 00:00:00 2021-11-08 00:00:00 Travel 1.2.840.1 89135.1.1 3.104.2.7 .3.421060 .8 1.2.840.114 350.1.13.10 4.2.7.3.698 084.8 [id number] [facility] 2021-11-08 00:00:00 2021-11-08 00:00:00 Travel 1.2.840.1 11111.1.1 3.104.2.7 .3.700831 .8 1.2.840.114 350.1.13.10 4.2.7.3.698 084.8 [id number] [facility] 2021-11-08 00:00:00 2021-11-08 00:00:00 Travel 1.2.840.1 20328.1.1 3.104.2.7 .3.399746 .8 1.2.840.114 350.1.13.10 4.2.7.3.698 084.8 [id number] [facility] 2021-10-29 13:00:00 2021-10-29 13:28:21 Office Visit Lucinda Wills 1.2.840.1 78766.1.1 3.104.2.7 .3.405582 .8 [id number] [facility] 2021-10-29 13:00:00 2021-10-29 13:28:21 Office Visit Lucinda Wills Cam 1.2.840.1 95848.1.1 3.104.2.7 .3.242051 .8 [id number] [facility] 2021-10-29 13:00:00 2021-10-29 13:28:21 Outpatient R LUCINDA WILLS [facility] [id number] [facility] 2021-10-29 13:00:00 2021-10-29 13:28:21 Office Visit Lucinda Wills Cam 1.2.840.1 20876.1.1 3.104.2.7 .3.935585 .8 [id number] [facility] 2021-10-29 13:00:00 2021-10-29 13:00:00 Outpatient LUCINDA PHAN [facility] [id number] [facility] 2021-10-29 13:00:00 2021-10-29 13:00:00 Outpatient LUCINDA PHAN [facility] [id number] [facility] 2021-10-29 00:00:00 2021-10-29 00:00:00 Travel 1.2.840.1 12027.1.1 3.104.2.7 .3.150047 .8 1.2.840.114 350.1.13.10 4.2.7.3.698 084.8 [id number] [facility] 2021-10-29 00:00:00 2021-10-29 00:00:00 Travel 1.2.840.1 73396.1.1 3.104.2.7 .3.554860 .8 1.2.840.114 350.1.13.10 4.2.7.3.698 084.8 [id number] [facility] 2021-10-29 00:00:00 2021-10-29 00:00:00 Travel 1.2.840.1 03163.1.1 3.104.2.7 .3.800820 .8 1.2.840.114 350.1.13.10 4.2.7.3.698 084.8 [id number] [facility] 2021-10-27 14:30:00 2021-10-27 15:05:35 Outpatient SHIVANI HARDING KIMBERLY [facility] [id number] [facility] 2021-10-27 14:30:00 2021-10-27 14:30:00 Outpatient SHIVANI HARDING KIMBERLY [facility] [id number] [facility] 2021-10-27 12:30:00 2021-10-27 12:45:00 Correctional Manager Visit Pat Patel [facility] 1.2.840.1 77376.1.1 3.104.2.7 .3.049111 .8 [id number] [facility] 2021-10-27 12:30:00 2021-10-27 12:45:00 Correctional Manager Visit Pat Patel [facility] 1.2.840.1 63153.1.1 3.104.2.7 .3.285326 .8 [id number] [facility] 2021-10-27 12:30:00 2021-10-27 12:45:00 Correctional Manager Visit Pat Patel [facility] 1.2.840.1 19196.1.1 3.104.2.7 .3.986850 .8 [id number] [facility] 2021-10-27 12:30:00 2021-10-27 12:45:00 Correctional Manager Visit Pat Patel [facility] 1.2.840.1 91177.1.1 3.104.2.7 .3.791401 .8 [id number] [facility] 2021-10-27 00:00:00 2021-10-27 00:00:00 Travel 1.2.840.1 32597.1.1 3.104.2.7 .3.818283 .8 1.2.840.114 350.1.13.10 4.2.7.3.698 084.8 [id number] [facility] 2021-10-27 00:00:00 2021-10-27 00:00:00 Travel 1.2.840.1 55777.1.1 3.104.2.7 .3.034251 .8 1.2.840.114 350.1.13.10 4.2.7.3.698 084.8 [id number] [facility] 2021-10-27 00:00:00 2021-10-27 00:00:00 Travel 1.2.840.1 95528.1.1 3.104.2.7 .3.811082 .8 1.2.840.114 350.1.13.10 4.2.7.3.698 084.8 [id number] [facility] 2021-10-27 00:00:00 2021-10-27 00:00:00 Travel 1.2.840.1 38693.1.1 3.104.2.7 .3.675700 .8 1.2.840.114 350.1.13.10 4.2.7.3.698 084.8 [id number] [facility] 2021-10-06 15:15:00 2021-10-06 16:31:02 Outpatient SHIVANI HARDING KIMBERLY [facility] [id number] [facility] 2021-10-06 00:00:00 2021-10-06 00:00:00 Travel 1.2.840.1 65964.1.1 3.104.2.7 .3.280878 .8 1.2.840.114 350.1.13.10 4.2.7.3.698 084.8 [id number] [facility] 2021-10-06 00:00:00 2021-10-06 00:00:00 Travel 1.2.840.1 41280.1.1 3.104.2.7 .3.607056 .8 1.2.840.114 350.1.13.10 4.2.7.3.698 084.8 [id number] [facility] 2021-10-06 00:00:00 2021-10-06 00:00:00 Travel 1.2.840.1 87476.1.1 3.104.2.7 .3.249590 .8 1.2.840.114 350.1.13.10 4.2.7.3.698 084.8 [id number] [facility] 2021-09-13 11:00:00 2021-09-13 11:00:00 Outpatient JAMES MCINTOSH [facility] [id number] [facility] 2021-09-02 13:00:00 2021-09-02 13:00:00 Outpatient HONORIO GERMAN [facility] [id number] [facility] 2021-09-02 13:00:00 2021-09-02 13:00:00 Outpatient HONORIO GERMAN [facility] [id number] [facility] 2021-09-02 00:00:00 2021-09-02 00:00:00 Travel 1.2.840.1 99782.1.1 3.104.2.7 .3.683475 .8 1.2.840.114 350.1.13.10 4.2.7.3.698 084.8 [id number] [facility] 2021-09-02 00:00:00 2021-09-02 00:00:00 Travel 1.2.840.1 22094.1.1 3.104.2.7 .3.253996 .8 1.2.840.114 350.1.13.10 4.2.7.3.698 084.8 [id number] [facility] 2021-09-02 00:00:00 2021-09-02 00:00:00 Travel 1.2.840.1 73429.1.1 3.104.2.7 .3.807317 .8 1.2.840.114 350.1.13.10 4.2.7.3.698 084.8 [id number] [facility] 2021-08-26 12:59:32 2021-08-26 23:59:00 Outpatient BOUCHRA PATEL [facility] [id number] [facility] 2021-08-26 12:59:32 2021-08-26 23:59:00 Hospital Encounter Bouchra Mcintosh 1.2.840.1 35201.1.1 3.104.2.7 .3.650226 .8 [id number] [facility] 2021-08-26 12:59:32 2021-08-26 23:59:00 Hospital Encounter Bouchra Mcintosh 1.2.840.1 18386.1.1 3.104.2.7 .3.701871 .8 [id number] [facility] 2021-08-26 12:59:32 2021-08-26 23:59:00 Hospital Encounter Bouchra Mcintosh 1.2.840.1 27395.1.1 3.104.2.7 .3.004692 .8 [id number] [facility] 2021-08-26 13:00:00 2021-08-26 13:47:55 Outpatient R BOUCHRA MCINTOSH [facility] [id number] [facility] 2021-08-26 13:00:00 2021-08-26 13:47:55 Office Visit Bouchra Mcintosh 1.2.840.1 80667.1.1 3.104.2.7 .3.649669 .8 [id number] [facility] 2021-08-26 13:00:00 2021-08-26 13:47:55 Outpatient R BOUCHRA MCINTOSH [facility] [id number] [facility] 2021-08-26 13:00:00 2021-08-26 13:47:55 Office Visit Bouchra Mcintosh 1.2.840.1 69252.1.1 3.104.2.7 .3.520605 .8 [id number] [facility] 2021-08-26 00:00:00 2021-08-26 00:00:00 Travel 1.2.840.1 82568.1.1 3.104.2.7 .3.154744 .8 1.2.840.114 350.1.13.10 4.2.7.3.698 084.8 [id number] [facility] 2021-08-26 00:00:00 2021-08-26 00:00:00 Travel 1.2.840.1 98195.1.1 3.104.2.7 .3.795032 .8 1.2.840.114 350.1.13.10 4.2.7.3.698 084.8 [id number] [facility] 2021-08-26 00:00:00 2021-08-26 00:00:00 Travel 1.2.840.1 00702.1.1 3.104.2.7 .3.319142 .8 1.2.840.114 350.1.13.10 4.2.7.3.698 084.8 [id number] [facility] 2021-08-03 17:15:00 2021-08-03 17:30:00 Correctional Manager Visit Sharita, [facility] Shivani Vaughn [facility] 1.2.840.114 350.1.13.10 4.2.7.2.686 [id number] [facility] 2021-08-03 17:15:00 2021-08-03 17:30:00 Correctional Manager Visit Shivani Vaughn [facility] 1.2.840.1 48014.1.1 3.104.2.7 .3.426586 .8 [id number] [facility] 2021-08-03 17:15:00 2021-08-03 17:30:00 Correctional Manager Visit Shivani Vaughn [facility] 1.2.840.1 20808.1.1 3.104.2.7 .3.363061 .8 [id number] [facility] 2021-08-03 17:15:00 2021-08-03 17:15:00 Outpatient R SHIVANI VAUGHN KIMBERLY [facility] [id number] [facility] 2021-08-02 10:15:00 2021-08-02 11:07:50 Outpatient R JAMES JACOBS [facility] [id number] [facility] 2021-08-02 00:00:00 2021-08-02 00:00:00 Travel 1.2.840.1 45014.1.1 3.104.2.7 .3.996245 .8 1.2.840.114 350.1.13.10 4.2.7.3.698 084.8 [id number] [facility] 2021-08-02 00:00:00 2021-08-02 00:00:00 Travel 1.2.840.1 18852.1.1 3.104.2.7 .3.222195 .8 1.2.840.114 350.1.13.10 4.2.7.3.698 084.8 [id number] [facility] 2021-08-02 00:00:00 2021-08-02 00:00:00 Travel 1.2.840.1 66694.1.1 3.104.2.7 .3.608321 .8 1.2.840.114 350.1.13.10 4.2.7.3.698 084.8 [id number] [facility] 2021-07-29 13:26:56 2021-07-29 23:59:00 Outpatient R BOUCHRA MCINTOSH [facility] [id number] [facility] 2021-07-29 13:26:56 2021-07-29 23:59:00 Hospital Encounter Bouchra Mcintosh 1.2.840.1 43087.1.1 3.104.2.7 .3.489725 .8 [id number] [facility] 2021-07-29 13:26:56 2021-07-29 23:59:00 Hospital Encounter Bouchra Mcintosh 1.2.840.1 37287.1.1 3.104.2.7 .3.269142 .8 [id number] [facility] 2021-07-29 13:26:56 2021-07-29 23:59:00 Hospital Encounter Bouchra Mcintosh 1.2.840.1 87354.1.1 3.104.2.7 .3.862225 .8 [id number] [facility] 2021-07-29 13:20:00 2021-07-29 15:16:49 Office Visit Bouchra Mcintosh [facility] 1.2.840.114 350.1.13.10 4.2.7.2.686 [id number] [facility] 2021-07-29 13:20:00 2021-07-29 15:16:49 Outpatient R BOUCHRA MCINTOSH [facility] [id number] [facility] 2021-07-29 13:20:00 2021-07-29 15:16:49 Office Visit Bouchra Mcintosh 1.2.840.1 26428.1.1 3.104.2.7 .3.874803 .8 [id number] [facility] 2021-07-29 13:20:00 2021-07-29 15:16:49 Office Visit Bouchra Mcintosh 1.2.840.1 46427.1.1 3.104.2.7 .3.840573 .8 [id number] [facility] 2021-07-29 00:00:00 2021-07-29 00:00:00 Letter (Out) Bouchra Mcintosh 1.2.840.1 58456.1.1 3.104.2.7 .3.143593 .8 [id number] [facility] 2021-07-29 00:00:00 2021-07-29 00:00:00 Travel 1.2.840.1 56982.1.1 3.104.2.7 .3.245705 .8 1.2.840.114 350.1.13.10 4.2.7.3.698 084.8 [id number] [facility] 2021-07-29 00:00:00 2021-07-29 00:00:00 Letter (Out) Bouchra Mcintosh 1.2.840.1 85228.1.1 3.104.2.7 .3.582923 .8 [id number] [facility] 2021-07-29 00:00:00 2021-07-29 00:00:00 Travel 1.2.840.1 58627.1.1 3.104.2.7 .3.850006 .8 1.2.840.114 350.1.13.10 4.2.7.3.698 084.8 [id number] [facility] 2021-07-29 00:00:00 2021-07-29 00:00:00 Letter (Out) Bouchra Mcintosh 1.2.840.1 18645.1.1 3.104.2.7 .3.297709 .8 [id number] [facility] 2021-07-29 00:00:00 2021-07-29 00:00:00 Travel 1.2.840.1 34833.1.1 3.104.2.7 .3.790594 .8 1.2.840.114 350.1.13.10 4.2.7.3.698 084.8 [id number] [facility] 2021-07-22 14:00:00 2021-07-22 23:59:00 Hospital Encounter Ryan Payton [facility] 1.2.840.114 350.1.13.10 4.2.7.2.686 [id number] [facility] 2021-07-22 14:00:00 2021-07-22 23:59:00 Hospital Encounter Ryan Payton 1.2.840.1 00284.1.1 3.104.2.7 .3.841912 .8 [id number] [facility] 2021-07-22 14:00:00 2021-07-22 23:59:00 Hospital Encounter Ryan Payton 1.2.840.1 99833.1.1 3.104.2.7 .3.577070 .8 [id number] [facility] 2021-07-22 14:00:00 2021-07-22 23:59:00 Hospital Encounter yRan Payton 1.2.840.1 17825.1.1 3.104.2.7 .3.064148 .8 [id number] [facility] 2021-07-22 10:46:11 2021-07-22 13:59:00 Hospital Encounter Ryan Payton [facility] 1.2.840.114 350.1.13.10 4.2.7.2.686 [id number] [facility] 2021-07-22 10:46:11 2021-07-22 13:59:00 Hospital Encounter Ryan Payton 1.2.840.1 62708.1.1 3.104.2.7 .3.515487 .8 [id number] [facility] 2021-07-22 10:46:11 2021-07-22 13:59:00 Hospital Encounter Ryan Payton 1.2.840.1 42431.1.1 3.104.2.7 .3.085804 .8 [id number] [facility] 2021-07-22 10:46:11 2021-07-22 13:59:00 Hospital Encounter Ryan Payton 1.2.840.1 41172.1.1 3.104.2.7 .3.631938 .8 [id number] [facility] 2021-07-22 13:00:00 2021-07-22 13:45:02 Outpatient HONORIO GERMAN [facility] [id number] [facility] 2021-07-22 13:00:00 2021-07-22 13:45:02 Outpatient HONORIO GERMAN [facility] [id number] [facility] 2021-07-22 13:00:00 2021-07-22 13:00:00 Outpatient R HONORIO GALARZA [facility] [id number] [facility] 2021-07-22 10:15:00 2021-07-22 11:55:28 Office Visit Ryan Payton 1.2.840.1 96091.1.1 3.104.2.7 .3.241343 .8 [id number] [facility] 2021-07-22 10:15:00 2021-07-22 11:55:28 Outpatient R RYAN PAYTON [facility] [id number] [facility] 2021-07-22 10:15:00 2021-07-22 11:55:28 Office Visit Ryan Payton 1.2.840.1 66832.1.1 3.104.2.7 .3.143497 .8 [id number] [facility] 2021-07-22 10:15:00 2021-07-22 11:55:28 Office Visit Ryan Payton 1.2.840.1 06916.1.1 3.104.2.7 .3.323470 .8 [id number] [facility] 2021-07-22 10:46:11 2021-07-22 10:46:11 Outpatient R RYAN PAYTON [facility] [id number] [facility] 2021-07-22 10:15:00 2021-07-22 10:15:00 Outpatient R RYAN PAYTON [facility] [id number] [facility] 2021-07-22 10:15:00 2021-07-22 10:15:00 Outpatient R RYAN PAYTON [facility] [id number] [facility] 2021-07-22 00:00:00 2021-07-22 00:00:00 Abstract Ryan Payton 1.2.840.1 17420.1.1 3.104.2.7 .3.985455 .8 [id number] [facility] 2021-07-22 00:00:00 2021-07-22 00:00:00 Travel 1.2.840.1 13546.1.1 3.104.2.7 .3.926285 .8 1.2.840.114 350.1.13.10 4.2.7.3.698 084.8 [id number] [facility] 2021-07-22 00:00:00 2021-07-22 00:00:00 Letter (Out) Ryan Payton 1.2.840.1 87572.1.1 3.104.2.7 .3.022406 .8 [id number] [facility] 2021-07-22 00:00:00 2021-07-22 00:00:00 Letter (Out) Ryan Payton 1.2.840.1 91779.1.1 3.104.2.7 .3.982697 .8 [id number] [facility] 2021-07-22 00:00:00 2021-07-22 00:00:00 Travel 1.2.840.1 33185.1.1 3.104.2.7 .3.607965 .8 1.2.840.114 350.1.13.10 4.2.7.3.698 084.8 [id number] [facility] 2021-07-22 00:00:00 2021-07-22 00:00:00 Abstract Ryan Payton 1.2.840.1 06570.1.1 3.104.2.7 .3.979353 .8 [id number] [facility] 2021-07-22 00:00:00 2021-07-22 00:00:00 Letter (Out) Ryan Payton 1.2.840.1 85008.1.1 3.104.2.7 .3.272542 .8 [id number] [facility] 2021-07-22 00:00:00 2021-07-22 00:00:00 Travel 1.2.840.1 89688.1.1 3.104.2.7 .3.152819 .8 1.2.840.114 350.1.13.10 4.2.7.3.698 084.8 [id number] [facility] 2021-07-22 00:00:00 2021-07-22 00:00:00 Abstract Ryan Payton 1.2.840.1 75642.1.1 3.104.2.7 .3.349640 .8 [id number] [facility] 2021-07-22 00:00:00 2021-07-22 00:00:00 Letter (Out) Ryan Payton 1.2.840.1 31400.1.1 3.104.2.7 .3.356118 .8 [id number] [facility] 2021-07-22 00:00:00 2021-07-22 00:00:00 Travel 1.2.840.1 62187.1.1 3.104.2.7 .3.819645 .8 1.2.840.114 350.1.13.10 4.2.7.3.698 084.8 [id number] [facility] 2021-07-22 00:00:00 2021-07-22 00:00:00 Abstract Ryan Payton 1.2.840.1 89144.1.1 3.104.2.7 .3.464459 .8 [id number] [facility] 2021-07-21 14:30:00 2021-07-21 15:30:35 Outpatient SHIVANI HARDING KIMBERLY [facility] [id number] [facility] 2021-07-21 14:30:00 2021-07-21 15:30:35 Outpatient SHIVANI HARDING [facility] [id number] [facility] 2021-07-21 14:30:00 2021-07-21 14:30:00 Outpatient SHIVANI HARDING [facility] [id number] [facility] 2021-07-15 00:00:00 2021-07-15 00:00:00 Orders Only Doctor Unassigned, [place] 1.2.840.1 35101.1.1 3.104.2.7 .3.076682 .8 [id number] [facility] 2021-07-15 00:00:00 2021-07-15 00:00:00 Orders Only Doctor Unassigned, [place] 1.2.840.1 11184.1.1 3.104.2.7 .3.887656 .8 [id number] [facility] 2021-07-15 00:00:00 2021-07-15 00:00:00 Orders Only Doctor Unassigned, [place] 1.2.840.1 57722.1.1 3.104.2.7 .3.074209 .8 [id number] [facility] 2021-07-15 00:00:00 2021-07-15 00:00:00 Orders Only Doctor Unassigned, [place] 1.2.840.1 43976.1.1 3.104.2.7 .3.409484 .8 [id number] [facility] 2021-07-09 12:46:00 2021-07-09 12:46:00 Emergency [facility] [id number] [facility] 2021-07-08 13:00:00 2021-07-08 13:00:00 Outpatient HONORIO GERMAN [facility] [id number] [facility] 2021-07-08 13:00:00 2021-07-08 13:00:00 Outpatient HONORIO GERMAN [facility] [id number] [facility] 2021-06-30 00:00:00 2021-06-30 00:00:00 Telephone Jerry Whitten 1.2.840.1 49051.1.1 3.104.2.7 .3.913800 .8 [id number] [facility] 2021-06-30 00:00:00 2021-06-30 00:00:00 Telephone Jerry Whitten 1.2.840.1 72113.1.1 3.104.2.7 .3.978602 .8 [id number] [facility] 2021-06-30 00:00:00 2021-06-30 00:00:00 Telephone Jerry Whitten 1.2.840.1 48182.1.1 3.104.2.7 .3.854705 .8 [id number] [facility] 2021-06-30 00:00:00 2021-06-30 00:00:00 Telephone Jerry Whitten 1.2.840.1 05059.1.1 3.104.2.7 .3.919109 .8 [id number] [facility] 2021-06-24 16:30:00 2021-06-24 16:40:00 Imm/Inj Visit Nurse, Pcp Immunizatio n Gideon Monte[facility] 1..840.114 350.1.13.10 4.2.7.2.686 [id number] [facility] 2021-06-24 16:30:00 2021-06-24 16:40:00 Imm/Inj Visit Gideon Montez Nurse, Pcp Immunizatio n 1.2840.1 89852.1.1 3.104.2.7 .3.941625 .8 [id number] [facility] 2021-06-24 16:30:00 2021-06-24 16:40:00 Imm/Inj Visit Gideon Montez Nurse, Pcp Immunizatio n 1.2.840.1 26798.1.1 3.104.2.7 .3.797756 .8 [id number] [facility] 2021-06-24 16:30:00 2021-06-24 16:40:00 Imm/Inj Visit Gideon Montez Nurse, Pcp Immunizatio n 1.2.840.1 87200.1.1 3.104.2.7 .3.241048 .8 [id number] [facility] 2021-06-24 16:30:00 2021-06-24 16:40:00 Imm/Inj Visit Gideon Montez Nurse, Pcp Immunizatio n 1.2.840.1 25514.1.1 3.104.2.7 .3.798993 .8 [id number] [facility] 2021-06-24 16:30:00 2021-06-24 16:30:00 Outpatient R GIDEON MONTEZ [facility] [id number] [facility] 2021-06-24 16:15:00 2021-06-24 16:30:00 Correctional Manager Visit Pcp-Lab Bethel Isaacs [facility] 1..840.114 350.1.13.10 4.2.7.2.686 [id number] [facility] 2021-06-24 16:15:00 2021-06-24 16:30:00 Correctional Manager Visit Bethel Isaacs Pcp-Lab 1.2.840.1 59375.1.1 3.104.2.7 .3.844552 .8 [id number] [facility] 2021-06-24 16:15:00 2021-06-24 16:30:00 Correctional Manager Visit Bethel Isaacs Pcp-Lab 1.2.840.1 53620.1.1 3.104.2.7 .3.526672 .8 [id number] [facility] 2021-06-24 16:15:00 2021-06-24 16:30:00 Correctional Manager Visit IsaacsBethel Pcp-Lab 1.2.840.1 01564.1.1 3.104.2.7 .3.260674 .8 [id number] [facility] 2021-06-24 16:15:00 2021-06-24 16:30:00 Correctional Manager Visit FernyBethel Pcp-Lab 1.2.840.1 84337.1.1 3.104.2.7 .3.988381 .8 [id number] [facility] 2021-06-24 16:15:00 2021-06-24 16:15:00 Outpatient R BETHEL ISAACS [facility] [id number] [facility] 2021-06-24 14:40:00 2021-06-24 16:08:00 Outpatient R BETHEL ISAACS [facility] [id number] [facility] 2021-06-24 14:40:00 2021-06-24 16:08:00 Office Visit Ferny Bethel [facility] Tg Hormone 1.2.840.1 43050.1.1 3.104.2.7 .3.246870 .8 [id number] [facility] 2021-06-24 14:40:00 2021-06-24 16:08:00 Outpatient R BETHEL ISAACS [facility] [id number] [facility] 2021-06-24 14:40:00 2021-06-24 16:08:00 Office Visit Ferny Bethel Roberts [facility] Tg Hormone 1.2.840.1 97681.1.1 3.104.2.7 .3.668786 .8 [id number] [facility] 2021-06-24 14:40:00 2021-06-24 16:08:00 Office Visit Rome Isaacsazra Roberts [facility] Tg Hormone 1.2.840.1 26607.1.1 3.104.2.7 .3.428204 .8 [id number] [facility] 2021-06-24 14:40:00 2021-06-24 16:08:00 Office Visit Bethel Isaacs [facility], Tg Hormone 1.2.840.1 77519.1.1 3.104.2.7 .3.497367 .8 [id number] [facility] 2021-06-24 14:40:00 2021-06-24 14:40:00 Outpatient R BETHEL ISAACS [facility] [id number] [facility] 2021-06-24 00:00:00 2021-06-24 00:00:00 Travel 1.2.840.1 93814.1.1 3.104.2.7 .3.244314 .8 1.2.840.114 350.1.13.10 4.2.7.3.698 084.8 [id number] [facility] 2021-06-24 00:00:00 2021-06-24 00:00:00 Travel 1.2.840.1 96147.1.1 3.104.2.7 .3.772883 .8 1.2.840.114 350.1.13.10 4.2.7.3.698 084.8 [id number] [facility] 2021-06-24 00:00:00 2021-06-24 00:00:00 Travel 1.2.840.1 01835.1.1 3.104.2.7 .3.949327 .8 1.2.840.114 350.1.13.10 4.2.7.3.698 084.8 [id number] [facility] 2021-06-24 00:00:00 2021-06-24 00:00:00 Travel 1.2.840.1 65178.1.1 3.104.2.7 .3.424270 .8 1.2.840.114 350.1.13.10 4.2.7.3.698 084.8 [id number] [facility] 2021-06-17 16:00:00 2021-06-17 16:15:00 Correctional Manager Visit Self, James Pcp-Lab 1.2.840.1 90490.1.1 3.104.2.7 .3.880683 .8 [id number] [facility] 2021-06-17 16:00:00 2021-06-17 16:15:00 Correctional Manager Visit Self, James Pcp-Lab 1.2.840.1 07736.1.1 3.104.2.7 .3.301060 .8 [id number] [facility] 2021-06-17 16:00:00 2021-06-17 16:15:00 Correctional Manager Visit Self, James Pcp-Lab 1.2.840.1 21058.1.1 3.104.2.7 .3.717405 .8 [id number] [facility] 2021-06-17 16:00:00 2021-06-17 16:15:00 Correctional Manager Visit Self, James Pcp-Lab 1.2.840.1 38888.1.1 3.104.2.7 .3.291448 .8 [id number] [facility] 2021-06-17 16:00:00 2021-06-17 16:15:00 Correctional Manager Visit Self, James Pcp-Lab 1.2.840.1 08218.1.1 3.104.2.7 .3.689049 .8 [id number] [facility] 2021-06-17 14:00:00 2021-06-17 14:00:00 Outpatient HONORIO GERMAN [facility] [id number] [facility] 2021-06-17 14:00:00 2021-06-17 14:00:00 Outpatient HONORIO GERMAN [facility] [id number] [facility] 2021-06-17 00:00:00 2021-06-17 00:00:00 Travel 1.2.840.1 56118.1.1 3.104.2.7 .3.673991 .8 1.2.840.114 350.1.13.10 4.2.7.3.698 084.8 [id number] [facility] 2021-06-17 00:00:00 2021-06-17 00:00:00 Travel 1.2.840.1 54907.1.1 3.104.2.7 .3.590032 .8 1.2.840.114 350.1.13.10 4.2.7.3.698 084.8 [id number] [facility] 2021-06-17 00:00:00 2021-06-17 00:00:00 Travel 1.2.840.1 52499.1.1 3.104.2.7 .3.684936 .8 1.2.840.114 350.1.13.10 4.2.7.3.698 084.8 [id number] [facility] 2021-06-17 00:00:00 2021-06-17 00:00:00 Travel 1.2.840.1 84749.1.1 3.104.2.7 .3.448070 .8 1.2.840.114 350.1.13.10 4.2.7.3.698 084.8 [id number] [facility] 2021-06-17 00:00:00 2021-06-17 00:00:00 Travel 1.2.840.1 19809.1.1 3.104.2.7 .3.386776 .8 1.2.840.114 350.1.13.10 4.2.7.3.698 084.8 [id number] [facility] 2021-06-14 11:00:00 2021-06-14 12:13:42 Outpatient JAMES MCINTOSH [facility] [id number] [facility] 2021-06-14 00:00:00 2021-06-14 00:00:00 Travel 1.2.840.1 49728.1.1 3.104.2.7 .3.777697 .8 1.2.840.114 350.1.13.10 4.2.7.3.698 084.8 [id number] [facility] 2021-06-14 00:00:00 2021-06-14 00:00:00 Travel 1.2.840.1 78626.1.1 3.104.2.7 .3.819235 .8 1.2.840.114 350.1.13.10 4.2.7.3.698 084.8 [id number] [facility] 2021-06-14 00:00:00 2021-06-14 00:00:00 Travel 1.2.840.1 94580.1.1 3.104.2.7 .3.295134 .8 1.2.840.114 350.1.13.10 4.2.7.3.698 084.8 [id number] [facility] 2021-06-14 00:00:00 2021-06-14 00:00:00 Travel 1.2.840.1 33340.1.1 3.104.2.7 .3.898922 .8 1.2.840.114 350.1.13.10 4.2.7.3.698 084.8 [id number] [facility] 2021-06-10 00:00:00 2021-06-10 00:00:00 Patient Outreach Britt Burton 1.2.840.1 96400.1.1 3.104.2.7 .3.726643 .8 [id number] [facility] 2021-06-10 00:00:00 2021-06-10 00:00:00 Patient Outreach Britt Burton 1.2.840.1 36912.1.1 3.104.2.7 .3.839931 .8 [id number] [facility] 2021-06-10 00:00:00 2021-06-10 00:00:00 Patient Outreach Britt Burton 1.2.840.1 33738.1.1 3.104.2.7 .3.655969 .8 [id number] [facility] 2021-06-10 00:00:00 2021-06-10 00:00:00 Patient Outreach Britt Burton 1.2.840.1 93643.1.1 3.104.2.7 .3.854571 .8 [id number] [facility] 2021-06-03 14:00:00 2021-06-03 14:22:42 Outpatient HONORIO GERMAN [facility] [id number] [facility] 2021-06-03 00:00:00 2021-06-03 00:00:00 Travel 1.2.840.1 27934.1.1 3.104.2.7 .3.944953 .8 1.2.840.114 350.1.13.10 4.2.7.3.698 084.8 [id number] [facility] 2021-06-03 00:00:00 2021-06-03 00:00:00 Travel 1.2.840.1 30764.1.1 3.104.2.7 .3.901560 .8 1.2.840.114 350.1.13.10 4.2.7.3.698 084.8 [id number] [facility] 2021-06-03 00:00:00 2021-06-03 00:00:00 Travel 1.2.840.1 09765.1.1 3.104.2.7 .3.521645 .8 1.2.840.114 350.1.13.10 4.2.7.3.698 084.8 [id number] [facility] 2021-06-03 00:00:00 2021-06-03 00:00:00 Travel 1.2.840.1 00956.1.1 3.104.2.7 .3.029655 .8 1.2.840.114 350.1.13.10 4.2.7.3.698 084.8 [id number] [facility] 2021-05-26 09:40:00 2021-05-26 23:59:00 Hospital Encounter Burke Beckett 1.2.840.1 51624.1.1 3.104.2.7 .3.929025 .8 [id number] [facility] 2021-05-26 09:40:00 2021-05-26 23:59:00 Hospital Encounter Burke Beckett 1.2.840.1 72294.1.1 3.104.2.7 .3.519144 .8 [id number] [facility] 2021-05-26 09:40:00 2021-05-26 23:59:00 Hospital Encounter Burke Beckett 1.2.840.1 58881.1.1 3.104.2.7 .3.082736 .8 [id number] [facility] 2021-05-26 00:00:00 2021-05-26 00:00:00 Outpatient R BURKE BECKETT [facility] [id number] [facility] 2021-05-25 23:19:00 2021-05-25 23:19:00 Emergency [facility] [id number] [address] [place] [address] 2021-05-24 11:00:00 2021-05-24 11:31:18 Outpatient R PENNY JACOBSLER [facility] [id number] [facility] 2021-05-24 00:00:00 2021-05-24 00:00:00 Travel 1.2.840.1 31666.1.1 3.104.2.7 .3.275736 .8 1.2.840.114 350.1.13.10 4.2.7.3.698 084.8 [id number] [facility] 2021-05-24 00:00:00 2021-05-24 00:00:00 Travel 1.2.840.1 79961.1.1 3.104.2.7 .3.324079 .8 1.2.840.114 350.1.13.10 4.2.7.3.698 084.8 [id number] [facility] 2021-05-24 00:00:00 2021-05-24 00:00:00 Travel 1.2.840.1 43629.1.1 3.104.2.7 .3.169984 .8 1.2.840.114 350.1.13.10 4.2.7.3.698 084.8 [id number] [facility] 2021-05-10 08:45:00 2021-05-10 08:45:00 Outpatient JAMES MCINTOSH [facility] [id number] [facility] 2021-04-29 13:00:00 2021-04-29 13:33:16 Outpatient HONORIO GERMAN [facility] [id number] [facility] 2021-04-29 13:00:00 2021-04-29 13:00:00 Outpatient HONORIO GERMAN [facility] [id number] [facility] 2021-04-29 00:00:00 2021-04-29 00:00:00 Travel 1.2.840.1 73586.1.1 3.104.2.7 .3.249417 .8 1.2.840.114 350.1.13.10 4.2.7.3.698 084.8 [id number] [facility] 2021-04-29 00:00:00 2021-04-29 00:00:00 Travel 1.2.840.1 92388.1.1 3.104.2.7 .3.854733 .8 1.2.840.114 350.1.13.10 4.2.7.3.698 084.8 [id number] [facility] 2021-03-18 15:00:00 2021-03-18 15:00:00 Outpatient PORTILOL GERMANINE [facility] [id number] [facility] 2021-03-18 00:00:00 2021-03-18 00:00:00 Travel 1.2.840.1 36856.1.1 3.104.2.7 .3.317515 .8 1.2.840.114 350.1.13.10 4.2.7.3.698 084.8 [id number] [facility] 2021-03-15 10:15:00 2021-03-15 10:15:00 Outpatient JAMES MCINTOSH [facility] [id number] [facility] 2021-02-25 09:00:00 2021-02-25 09:00:00 Outpatient Escobar GALARZA HONORIO [facility] [id number] [facility] 2021-02-25 00:00:00 2021-02-25 00:00:00 Travel 1.2.840.1 55323.1.1 3.104.2.7 .3.854945 .8 1.2.840.114 350.1.13.10 4.2.7.3.698 084.8 [id number] [facility] 2021-02-15 11:00:00 2021-02-15 11:00:00 Outpatient JAMES MCINTOSH [facility] [id number] [facility] 2021-02-15 00:00:00 2021-02-15 00:00:00 Travel 1.2.840.1 52277.1.1 3.104.2.7 .3.791905 .8 1.2.840.114 350.1.13.10 4.2.7.3.698 084.8 [id number] [facility] 2021-02-11 11:00:00 2021-02-11 11:00:00 Outpatient PORTILLO GERMANINE [facility] [id number] [facility] 2021-02-11 00:00:00 2021-02-11 00:00:00 Travel 1.2.840.1 40257.1.1 3.104.2.7 .3.078826 .8 1.2.840.114 350.1.13.10 4.2.7.3.698 084.8 [id number] [facility] 2021-01-28 13:53:29 2021-01-28 14:08:29 Correctional Manager Visit Paolo Casillas Pcp-Lab 1.2.840.1 87397.1.1 3.104.2.7 .3.920326 .8 [id number] [facility] 2021-01-28 13:00:00 2021-01-28 13:00:00 Outpatient HONORIO GERMAN [facility] [id number] [facility] 2021-01-28 00:00:00 2021-01-28 00:00:00 Travel 1.2.840.1 57831.1.1 3.104.2.7 .3.239631 .8 1.2.840.114 350.1.13.10 4.2.7.3.698 084.8 [id number] [facility] 2021-01-25 09:30:00 2021-01-25 09:30:00 Outpatient JAMES MCINTOSH [facility] [id number] [facility] 2021-01-25 00:00:00 2021-01-25 00:00:00 Travel 1.2.840.1 47989.1.1 3.104.2.7 .3.702885 .8 1.2.840.114 350.1.13.10 4.2.7.3.698 084.8 [id number] [facility] 2021-01-13 16:00:00 2021-01-13 16:00:00 Outpatient Escobar REYNALDO JAMES [facility] [id number] [facility] 2021-01-13 00:00:00 2021-01-13 00:00:00 Travel 1.2.840.1 25907.1.1 3.104.2.7 .3.056471 .8 1.2.840.114 350.1.13.10 4.2.7.3.698 084.8 [id number] [facility] 2020-12-31 16:38:39 2020-12-31 16:54:09 Correctional Manager Visit Tim Holguin Pcp-Lab 1.2.840.1 56596.1.1 3.104.2.7 .3.095859 .8 [id number] [facility] 2020-12-31 16:00:00 2020-12-31 16:00:00 Outpatient HONORIO GERMAN [facility] [id number] [facility] 2020-12-31 00:00:00 2020-12-31 00:00:00 Travel 1.2.840.1 27060.1.1 3.104.2.7 .3.712325 .8 1.2.840.114 350.1.13.10 4.2.7.3.698 084.8 [id number] [facility] 2020-12-28 00:00:00 2020-12-28 00:00:00 Orders Only Doctor Unassigned, [place] 1.2.840.1 64621.1.1 3.104.2.7 .3.857252 .8 [id number] [facility] 2020-12-24 11:00:00 2020-12-24 11:00:00 Outpatient TIM PAVON [facility] [id number] [facility] 2020-12-24 00:00:00 2020-12-24 00:00:00 Travel 1.2.840.1 24120.1.1 3.104.2.7 .3.975510 .8 1.2.840.114 350.1.13.10 4.2.7.3.698 084.8 [id number] [facility] 2020-12-17 11:00:00 2020-12-17 11:00:00 Outpatient PORTILLO GERMANINE [facility] [id number] [facility] 2020-11-26 16:00:00 2020-11-26 16:00:00 Outpatient PORTILLO GERMANINE [facility] [id number] [facility] 2020-11-26 00:00:00 2020-11-26 00:00:00 Travel 1.2.840.1 33828.1.1 3.104.2.7 .3.755543 .8 1.2.840.114 350.1.13.10 4.2.7.3.698 084.8 [id number] [facility] 2020-11-26 00:00:00 2020-11-26 00:00:00 Travel 1.2.840.1 54732.1.1 3.104.2.7 .3.462924 .8 1.2.840.114 350.1.13.10 4.2.7.3.698 084.8 [id number] [facility] 2020-11-21 10:04:35 2020-11-21 10:09:35 Imm/Inj Visit Gideon Montez [facility] 1.2.840.1 19480.1.1 3.104.2.7 .3.883505 .8 [id number] [facility] 2020-11-21 10:05:00 2020-11-21 10:05:00 Outpatient GIDEON COLIN [facility] [id number] [facility] 2020-11-17 15:45:00 2020-11-17 15:45:00 Outpatient CHELSY AGUIRRE [facility] [id number] [facility] 2020-11-17 00:00:00 2020-11-17 00:00:00 Travel 1.2.840.1 89101.1.1 3.104.2.7 .3.507400 .8 1.2.840.114 350.1.13.10 4.2.7.3.698 084.8 [id number] [facility] 2020-11-16 00:00:00 2020-11-16 00:00:00 Orders Only Doctor Unassigned, [place] 1.2.840.1 55533.1.1 3.104.2.7 .3.313811 .8 [id number] [facility] 2020-11-12 08:00:00 2020-11-12 08:00:00 Outpatient HONORIO GERMAN [facility] [id number] [facility] 2020-11-12 00:00:00 2020-11-12 00:00:00 Travel 1.2.840.1 10292.1.1 3.104.2.7 .3.458800 .8 1.2.840.114 350.1.13.10 4.2.7.3.698 084.8 [id number] [facility] 2020-10-29 09:30:00 2020-10-29 09:30:00 Outpatient TIM PAVON [facility] [id number] [facility] 2020-10-24 09:54:36 2020-10-24 10:09:56 Imm/Inj Visit Gio Martinez Immunizatifox lam [place] [employer] 1.2840.1 88088.1.1 3.104.2.7 .3.925531 .8 [id number] [facility] 2020-10-24 10:00:00 2020-10-24 10:00:00 Outpatient GIO MARSHALL [facility] [id number] [facility] 2020-10-24 00:00:00 2020-10-24 00:00:00 Travel 1.2.840.1 05091.1.1 3.104.2.7 .3.504956 .8 1.2.840.114 350.1.13.10 4.2.7.3.698 084.8 [id number] [facility] 2020-09-25 23:49:00 2020-09-26 10:04:00 Emergency E ALAINA PARRY [facility] [id number] [facility] 2020-09-17 00:00:00 2020-09-17 00:00:00 Telephone Nilton Montes 1..840.1 12030.1.1 3.104.2.7 .3.603018 .8 [id number] [facility] 2020-08-18 15:00:00 2020-08-18 15:00:00 Outpatient CHELSY AGUIRRE [facility] [id number] [facility] 2020-07-08 12:55:33 2020-07-08 15:36:41 Office Visit Nilton Montes 1..840.1 46122.1.1 3.104.2.7 .3.225518 .8 [id number] [facility] 2020-07-08 13:30:00 2020-07-08 13:30:00 Outpatient NILTON KINGSLEY PATRICIA [facility] [id number] [facility] 2020-07-08 00:00:00 2020-07-08 00:00:00 Orders Only Doctor Unassigned, [place] 1..840.1 18129.1.1 3.104.2.7 .3.582219 .8 [id number] [facility] 2020-07-08 00:00:00 2020-07-08 00:00:00 Letter (Out) Nilton Montes 1.2.840.1 14984.1.1 3.104.2.7 .3.325070 .8 [id number] [facility] 2020-05-21 10:15:00 2020-05-21 10:15:00 Outpatient DENA ALMEIDA [facility] [id number] [facility] 2020-05-21 00:00:00 2020-05-21 00:00:00 Orders Only Doctor Unassigned, [place] 1.2.840.1 42361.1.1 3.104.2.7 .3.970114 .8 [id number] [facility] 2020-04-24 16:00:00 2020-04-24 16:00:00 Outpatient R ASH RAMIREZ [facility] [id number] [facility] 2020-04-22 00:00:00 2020-04-22 00:00:00 Telephone Ash Ramirez 1.2.840.1 67071.1.1 3.104.2.7 .3.089303 .8 [id number] [facility] 2020-04-21 00:00:00 2020-04-21 00:00:00 Case Management Ash Ramirez 1.2.840.1 17845.1.1 3.104.2.7 .3.552835 .8 [id number] [facility] 2020-04-20 15:09:50 2020-04-20 16:30:58 Office Visit Ash Ramirez 1.2.840.1 81187.1.1 3.104.2.7 .3.241295 .8 [id number] [facility] 2020-04-20 15:30:00 2020-04-20 15:30:00 Outpatient R ASH RAMIREZ [facility] [id number] [facility] 2020-04-20 00:00:00 2020-04-20 00:00:00 Travel 1.2.840.1 16410.1.1 3.104.2.7 .3.145505 .8 1.2.840.114 350.1.13.10 4.2.7.3.698 084.8 [id number] [facility] 2020-04-16 11:02:00 2020-04-16 13:56:00 Emergency Kitty Kessler 1.2.840.1 16246.1.1 3.104.2.7 .3.467356 .8 [id number] [facility] 2020-04-16 00:00:00 2020-04-16 00:00:00 Travel 1.2.840.1 27433.1.1 3.104.2.7 .3.563930 .8 1.2.840.114 350.1.13.10 4.2.7.3.698 084.8 [id number] [facility] 2020-04-07 13:30:00 2020-04-07 13:30:00 Outpatient R CHELSY ROMO [facility] [id number] [facility] 2020-04-07 00:00:00 2020-04-07 00:00:00 Travel 1.2.840.1 26264.1.1 3.104.2.7 .3.577389 .8 1.2.840.114 350.1.13.10 4.2.7.3.698 084.8 [id number] [facility] 2020-01-30 15:45:00 2020-01-30 15:45:00 Outpatient R MAHENDRATRUNG [facility] [id number] [facility] 2020-01-30 00:00:00 2020-01-30 00:00:00 Travel 1.2.840.1 56439.1.1 3.104.2.7 .3.830401 .8 1.2.840.114 350.1.13.10 4.2.7.3.698 084.8 [id number] [facility] 2020-01-01 00:00:00 2020-01-01 00:00:00 Orders Only Doctor Unassigned, [place] 1.2.840.1 26686.1.1 3.104.2.7 .3.886320 .8 [id number] [facility] 2019-10-22 15:45:00 2019-10-22 15:45:00 Outpatient R CHELSY ROMO [facility] [id number] [facility] 2019-09-12 17:51:35 2019-09-12 19:25:20 Urgent Care Unknown, Attending Ruchi Matt 1.2.840.1 64348.1.1 3.104.2.7 .3.673663 .8 [id number] [facility] 2019-09-12 18:00:00 2019-09-12 18:00:00 Outpatient R UNKNOWN, ATTENDING [facility] [id number] [facility] 2019-07-04 00:00:00 2019-07-04 00:00:00 Orders Only Doctor Unassigned, [place] 1.2.840.1 84874.1.1 3.104.2.7 .3.769215 .8 [id number] [facility] 2019-04-02 00:00:00 2019-04-02 00:00:00 Orders Only Doctor Unassigned, [place] 1.2.840.1 45904.1.1 3.104.2.7 .3.355022 .8 [id number] [facility] 2018-10-31 14:59:26 2018-10-31 16:42:50 Nurse Visit Nilton Montes Nurse, [employer] 1.2.840.1 48016.1.1 3.104.2.7 .3.411977 .8 [id number] [facility] Results Test Description Test Time Test Comments Results Result Co [id number] 16:46:00* Test Item Value Reference Range Interpretation Comme nts POCT PREG (test code = 1605) Negative On board controls acceptable with C Line (test code = 3574) Yes POCT PREG LOT # (test code = 3575) POCT PREG TEST DATE ( test code = 3576) [id number] 16:46:00* Test Item Value Reference Range Interpretation Comme nts POCT PREG (test code = 1605) Negative On board controls acceptable with C Line (test code = 3574) Yes POCT PREG LOT # (test code = 3575) POCT PREG TEST DATE ( test code = 3576) [facility] [id number] 16:46:00* Test Item Value Reference Range Interpretation Comme nts POCT PREG (test code = 1605) Negative On board controls acceptable with C Line (test code = 3574) Yes POCT PREG LOT # (test code = 3575) POCT PREG TEST DATE ( test code = 3576) [facility] [id number] 16:46:00* Test Item Value Reference Range Interpretation Comme nts POCT PREG (test code = 1605) Negative On board controls acceptable with C Line (test code = 3574) Yes POCT PREG LOT # (test code = 3575) POCT PREG TEST DATE ( test code = 3576) [facility] SARS-COV-2 ANTIGEN (BINAX NOW)2023-07-19 17:16:00* Test Item Value Reference Range Interpretation Comme nts POCT SARS-COV-2 ANTIGEN (ofe t code = 75767-5) Not Detected Not Detected On board controls acceptable with C Line (test code = 3574) Yes Lab Interpretation (test cod e = 64911-4) Normal [facility] SARS-COV-2 ANTIGEN (BINAX NOW)2023-07-19 17:16:00* Test Item Value Reference Range Interpretation Comme nts POCT SARS-COV-2 ANTIGEN (ofe t code = 06543-7) Not Detected Not Detected On board controls acceptable with C Line (test code = 3574) Yes Lab Interpretation (test cod e = 15400-9) Normal [facility] SARS-COV-2 ANTIGEN (BINAX NOW)2023-07-19 17:16:00* Test Item Value Reference Range Interpretation Comme nts POCT SARS-COV-2 ANTIGEN (ofe t code = 66619-8) Not Detected Not Detected On board controls acceptable with C Line (test code = 3574) Yes Lab Interpretation (test cod e = 36886-5) Normal [facility] SARS-COV-2 ANTIGEN (BINAX NOW)2023-07-19 17:16:00* Test Item Value Reference Range Interpretation Comme nts POCT SARS-COV-2 ANTIGEN (ofe t code = 85458-7) Not Detected Not Detected On board controls acceptable with C Line (test code = 3574) Yes Lab Interpretation (test cod e = 06423-9) [facility] SARS-COV-2 ANTIGEN (BINAX NOW)2023-07-19 17:16:00* Test Item Value Reference Range Interpretation Comme nts POCT SARS-COV-2 ANTIGEN (ofe t code = 77311-8) Not Detected Not Detected On board controls acceptable with C Line (test code = 3574) Yes Lab Interpretation (test cod e = 52163-8) [facility] SARS-COV-2 ANTIGEN (BINAX NOW)2023-07-19 17:16:00* Test Item Value Reference Range Interpretation Comme nts POCT SARS-COV-2 ANTIGEN (ofe t code = 80819-0) Not Detected Not Detected On board controls acceptable with C Line (test code = 3574) Yes Lab Interpretation (test cod e = 72772-5) [facility] [id number] 20:12:00* Test Item Value Reference Range Interpretation Comme nts AG STREP GROUP A (THROAT) PO C (test code = STREPAPOC) negative NEGATIVE POCT [id number] 01:46:00* Test Item Value Reference Range Interpretation Comme nts POCT PREG (test code = 1605) Negative On board controls acceptable with C Line (test code = 3574) Present POCT PREG LOT # (test code = 3575) [facility] [id number] POCT PREG TEST DATE ( test code = 3576) 07/02/2023 Lab Interpretation (test cod e = 46384-3) [facility] [id number] 01:46:00* Test Item Value Reference Range Interpretation Comme nts POCT PREG (test code = 1605) Negative On board controls acceptable with C Line (test code = 3574) Present POCT PREG LOT # (test code = 3575) [facility] [id number] POCT PREG TEST DATE ( test code = 3576) 07/02/2023 Lab Interpretation (test cod e = 08236-5) [facility] [id number] 01:46:00* Test Item Value Reference Range Interpretation Comme nts POCT PREG (test code = 1605) Negative On board controls acceptable with C Line (test code = 3574) Present POCT PREG LOT # (test code = 3575) [facility] [id number] POCT PREG TEST DATE ( test code = 3576) 07/02/2023 Lab Interpretation (test cod e = 72637-2) [facility] [id number] 01:46:00* Test Item Value Reference Range Interpretation Comme nts POCT PREG (test code = 1605) Negative On board controls acceptable with C Line (test code = 3574) Present POCT PREG LOT # (test code = 3575) [facility] [id number] POCT PREG TEST DATE ( test code = 3576) 07/02/2023 Lab Interpretation (test cod e = 31566-5) [facility] [id number] 01:46:00* Test Item Value Reference Range Interpretation Comme nts POCT PREG (test code = 1605) Negative On board controls acceptable with C Line (test code = 3574) Present POCT PREG LOT # (test code = 3575) [facility] [id number] POCT PREG TEST DATE ( test code = 3576) 07/02/2023 Lab Interpretation (test cod e = 95300-0) [facility] [id number] 01:46:00* Test Item Value Reference Range Interpretation Comme nts POCT PREG (test code = 1605) Negative On board controls acceptable with C Line (test code = 3574) Present POCT PREG LOT # (test code = 3575) HCG [id number] POCT PREG TEST DATE ( test code = 3576) 07/02/2023 Lab Interpretation (test cod e = 88612-8) [facility] [id number] 01:46:00* Test Item Value Reference Range Interpretation Comme nts POCT PREG (test code = 1605) Negative On board controls acceptable with C Line (test code = 3574) Present POCT PREG LOT # (test code = 3575) HCG [id number] POCT PREG TEST DATE ( test code = 3576) 07/02/2023 Lab Interpretation (test cod e = 23490-0) [facility] [id number] 01:46:00* Test Item Value Reference Range Interpretation Comme nts POCT PREG (test code = 1605) Negative On board controls acceptable with C Line (test code = 3574) Present POCT PREG LOT # (test code = 3575) HCG [id number] POCT PREG TEST DATE ( test code = 3576) 07/02/2023 Lab Interpretation (test cod e = 86131-6) [facility] [id number] 01:46:00* Test Item Value Reference Range Interpretation Comme nts POCT PREG (test code = 1605) Negative On board controls acceptable with C Line (test code = 3574) Present POCT PREG LOT # (test code = 3575) HCG [id number] POCT PREG TEST DATE ( test code = 3576) 07/02/2023 Lab Interpretation (test cod e = 35675-2) [facility] [id number] 01:46:00* Test Item Value Reference Range Interpretation Comme nts POCT PREG (test code = 1605) Negative On board controls acceptable with C Line (test code = 3574) Present POCT PREG LOT # (test code = 3575) HCG [id number] POCT PREG TEST DATE ( test code = 3576) 07/02/2023 Lab Interpretation (test cod e = 19239-9) [facility] [id number] 01:46:00* Test Item Value Reference Range Interpretation Comme nts POCT PREG (test code = 1605) Negative On board controls acceptable with C Line (test code = 3574) Present POCT PREG LOT # (test code = 3575) HCG [id number] POCT PREG TEST DATE ( test code = 3576) 07/02/2023 Lab Interpretation (test cod e = 61247-1) [facility] [id number] 01:46:00* Test Item Value Reference Range Interpretation Comme nts POCT PREG (test code = 1605) Negative On board controls acceptable with C Line (test code = 3574) Present POCT PREG LOT # (test code = 3575) HCG [id number] POCT PREG TEST DATE ( test code = 3576) 07/02/2023 Lab Interpretation (test cod e = 59347-8) [facility] [id number] 01:46:00* Test Item Value Reference Range Interpretation Comme nts POCT PREG (test code = 1605) Negative On board controls acceptable with C Line (test code = 3574) Present POCT PREG LOT # (test code = 3575) HCG [id number] POCT PREG TEST DATE ( test code = 3576) 07/02/2023 Lab Interpretation (test cod e = 14920-5) [facility] [id number] 01:46:00* Test Item Value Reference Range Interpretation Comme nts POCT PREG (test code = 1605) Negative On board controls acceptable with C Line (test code = 3574) Present POCT PREG LOT # (test code = 3575) HCG [id number] POCT PREG TEST DATE ( test code = 3576) 07/02/2023 Lab Interpretation (test cod e = 10335-1) [facility] [id number] 01:46:00* Test Item Value Reference Range Interpretation Comme nts POCT PREG (test code = 1605) Negative On board controls acceptable with C Line (test code = 3574) Present POCT PREG LOT # (test code = 3575) HCG [id number] POCT PREG TEST DATE ( test code = 3576) 07/02/2023 Lab Interpretation (test cod e = 74214-9) [facility] [id number] 01:46:00* Test Item Value Reference Range Interpretation Comme nts POCT PREG (test code = 1605) Negative On board controls acceptable with C Line (test code = 3574) Present POCT PREG LOT # (test code = 3575) HCG [id number] POCT PREG TEST DATE ( test code = 3576) 07/02/2023 Lab Interpretation (test cod e = 57005-4) [facility] [id number] 01:46:00* Test Item Value Reference Range Interpretation Comme nts POCT PREG (test code = 1605) Negative On board controls acceptable with C Line (test code = 3574) Present POCT PREG LOT # (test code = 3575) HCG [id number] POCT PREG TEST DATE ( test code = 3576) 07/02/2023 Lab Interpretation (test cod e = 82693-3) [facility] [id number] 01:46:00* Test Item Value Reference Range Interpretation Comme nts POCT PREG (test code = 1605) Negative On board controls acceptable with C Line (test code = 3574) Present POCT PREG LOT # (test code = 3575) HCG [id number] POCT PREG TEST DATE ( test code = 3576) 07/02/2023 Lab Interpretation (test cod e = 47243-1) [facility] [id number] 01:46:00* Test Item Value Reference Range Interpretation Comme nts POCT PREG (test code = 1605) Negative On board controls acceptable with C Line (test code = 3574) Present POCT PREG LOT # (test code = 3575) HCG [id number] POCT PREG TEST DATE ( test code = 3576) 07/02/2023 Lab Interpretation (test cod e = 04902-2) [facility] [id number] 01:46:00* Test Item Value Reference Range Interpretation Comme nts POCT PREG (test code = 1605) Negative On board controls acceptable with C Line (test code = 3574) Present POCT PREG LOT # (test code = 3575) HCG [id number] POCT PREG TEST DATE ( test code = 3576) 07/02/2023 Lab Interpretation (test cod e = 43263-9) [facility] [id number] 01:46:00* Test Item Value Reference Range Interpretation Comme nts POCT PREG (test code = 1605) Negative On board controls acceptable with C Line (test code = 3574) Present POCT PREG LOT # (test code = 3575) HCG [id number] POCT PREG TEST DATE ( test code = 3576) 07/02/2023 Lab Interpretation (test cod e = 93826-9) [facility] [id number] 01:46:00* Test Item Value Reference Range Interpretation Comme nts POCT PREG (test code = 1605) Negative On board controls acceptable with C Line (test code = 3574) Present POCT PREG LOT # (test code = 3575) HCG [id number] POCT PREG TEST DATE ( test code = 357) 07/02/2023 Lab Interpretation (test cod e = 90652-1) [id number]* Test Item Value Reference Range Interpretation Comme nts POCT PREG (test code = 1605) Negative On board controls acceptable with C Line (test code = 3574) Present POCT PREG LOT # (test code = 3575) HCG [id number] POCT PREG TEST DATE ( test code = 357) 07/02/2023 Lab Interpretation (test cod e = 62885-8) Normal [facility] METABOLIC PANEL (NA, K, CL, CO2, GLUCOSE, BUN, CREATININE, CA)2022-04-05 11:08:28* Test Item Value Reference Range Interpretation Comme [facility] NA (test code = 6083586894) 137 mmol/L 135-145 K (test code = 7582521629) 3.8 mmol/L 3.5-5 CL (test code = 2246744356) 104 mmol/L 98-108 CO2 TOTAL (test code = 1907888643) 27 mmol/L 23-31 AGAP (test code = 9039872163) 2-16 BUN (test code = 0247466379) 13 mg/dL 7-23 GLUCOSE (test code = 8744432139) 106 mg/dL 70-110 CREATININE (test code = 0821700210) 0.58 mg/dL 0.5-1.04 CALCIUM (test code = 9194833882) 8.6 mg/dL 8.6-10.6 eGFR (test code = 4318985910) mL/min/1.73m2 MEDHAT (test code = MEDHAT) Association [...] or urine or abnormalities in imaging tests). [facility] METABOLIC PANEL (NA, K, CL, CO2, GLUCOSE, BUN, CREATININE, CA)2022-04-05 11:08:28* Test Item Value Reference Range Interpretation Comme nts NA (test code = 8377633079) 137 mmol/L 135-145 K (test code = 1001769592) 3.8 mmol/L 3.5-5 CL (test code = 5800633863) 104 mmol/L 98-108 CO2 TOTAL (test code = 8254572306) 27 mmol/L 23-31 AGAP (test code = 4983347032) 2-16 BUN (test code = 8541996241) 13 mg/dL 7-23 GLUCOSE (test code = 0007884151) 106 mg/dL 70-110 CREATININE (test code = 9780890527) 0.58 mg/dL 0.5-1.04 CALCIUM (test code = 1027245638) 8.6 mg/dL 8.6-10.6 eGFR (test code = 4756916204) mL/min/1.73m2 MEDHAT (test code = MEDHAT) Association [...] or urine or abnormalities in imaging tests). [facility] METABOLIC PANEL (NA, K, CL, CO2, GLUCOSE, BUN, CREATININE, CA)2022-04-05 11:08:28* Test Item Value Reference Range Interpretation Comme nts NA (test code = 8039654748) 137 mmol/L 135-145 K (test code = 3048204102) 3.8 mmol/L 3.5-5 CL (test code = 7813194317) 104 mmol/L 98-108 CO2 TOTAL (test code = 2072796546) 27 mmol/L 23-31 AGAP (test code = 0095221283) 2-16 BUN (test code = 6107409606) 13 mg/dL 7-23 GLUCOSE (test code = 2346444471) 106 mg/dL 70-110 CREATININE (test code = 4660569080) 0.58 mg/dL 0.5-1.04 CALCIUM (test code = 2787291692) 8.6 mg/dL 8.6-10.6 eGFR (test code = 8554457254) mL/min/1.73m2 MEDHAT (test code = MEDHAT) Association [...] or abnormalities in imaging tests). [facility] (NA, K, CL, CO2, GLUCOSE, BUN, CREATININE, CA)2022-04-05 11:08:28* Test Item Value Reference Range Interpretation Comme nts NA (test code = 8876144074) 137 mmol/L 135-145 K (test code = 1893840457) 3.8 mmol/L 3.5-5 CL (test code = 2597983551) 104 mmol/L 98-108 CO2 TOTAL (test code = 1109800896) 27 mmol/L 23-31 AGAP (test code = 6511791414) 2-16 BUN (test code = 0459117258) 13 mg/dL 7-23 GLUCOSE (test code = 4476574117) 106 mg/dL 70-110 CREATININE (test code = 3196803387) 0.58 mg/dL 0.5-1.04 CALCIUM (test code = 3823134099) 8.6 mg/dL 8.6-10.6 eGFR (test code = 8683369072) mL/min/1.73m2 MEDHAT (test code = MEDHAT) Association [...] or abnormalities in imaging tests). [facility] (NA, K, CL, CO2, GLUCOSE, BUN, CREATININE, CA)2022-04-05 11:08:28* Test Item Value Reference Range Interpretation Comme nts NA (test code = 4321749266) 137 mmol/L 135-145 K (test code = 3102453315) 3.8 mmol/L 3.5-5 CL (test code = 7021015359) 104 mmol/L 98-108 CO2 TOTAL (test code = 5075497943) 27 mmol/L 23-31 AGAP (test code = 3409198516) 2-16 BUN (test code = 8289339294) 13 mg/dL 7-23 GLUCOSE (test code = 6624547181) 106 mg/dL 70-110 CREATININE (test code = 7254317785) 0.58 mg/dL 0.5-1.04 CALCIUM (test code = 5846505642) 8.6 mg/dL 8.6-10.6 eGFR (test code = 7962293842) mL/min/1.73m2 MEDHAT (test code = MEDHAT) Association [...] or urine or abnormalities in imaging tests). [facility] METABOLIC PANEL (NA, K, CL, CO2, GLUCOSE, BUN, CREATININE, CA)2022-04-05 11:08:28* Test Item Value Reference Range Interpretation Comme nts NA (test code = 7638883974) 137 mmol/L 135-145 K (test code = 1420498257) 3.8 mmol/L 3.5-5 CL (test code = 4520110061) 104 mmol/L 98-108 CO2 TOTAL (test code = 9112003614) 27 mmol/L 23-31 AGAP (test code = 9291367186) 2-16 BUN (test code = 6755828468) 13 mg/dL 7-23 GLUCOSE (test code = 2477457139) 106 mg/dL 70-110 CREATININE (test code = 9846564703) 0.58 mg/dL 0.5-1.04 CALCIUM (test code = 2850921839) 8.6 mg/dL 8.6-10.6 eGFR (test code = 4783987089) mL/min/1.73m2 MEDHAT (test code = MEDHAT) Association [...] or urine or abnormalities in imaging tests). [facility] METABOLIC PANEL (NA, K, CL, CO2, GLUCOSE, BUN, CREATININE, CA)2022-04-05 11:08:28* Test Item Value Reference Range Interpretation Comme nts NA (test code = 3314935482) 137 mmol/L 135-145 K (test code = 5013658958) 3.8 mmol/L 3.5-5 CL (test code = 5824788463) 104 mmol/L 98-108 CO2 TOTAL (test code = 8216349169) 27 mmol/L 23-31 AGAP (test code = 8634350688) 2-16 BUN (test code = 4648934391) 13 mg/dL 7-23 GLUCOSE (test code = 3613526815) 106 mg/dL 70-110 CREATININE (test code = 8146688901) 0.58 mg/dL 0.5-1.04 CALCIUM (test code = 6423933294) 8.6 mg/dL 8.6-10.6 eGFR (test code = 7936527523) mL/min/1.73m2 MEDHAT (test code = MEDHAT) Association [...] or urine or abnormalities in imaging tests). [facility] METABOLIC PANEL (NA, K, CL, CO2, GLUCOSE, BUN, CREATININE, CA)2022-04-05 11:08:28* Test Item Value Reference Range Interpretation Comme nts NA (test code = 8408694204) 137 mmol/L 135-145 K (test code = 0423523576) 3.8 mmol/L 3.5-5 CL (test code = 6688092804) 104 mmol/L 98-108 CO2 TOTAL (test code = 3635293916) 27 mmol/L 23-31 AGAP (test code = 5516525544) 2-16 BUN (test code = 3476582733) 13 mg/dL 7-23 GLUCOSE (test code = 7367883681) 106 mg/dL 70-110 CREATININE (test code = 4613572019) 0.58 mg/dL 0.5-1.04 CALCIUM (test code = 4344355604) 8.6 mg/dL 8.6-10.6 eGFR (test code = 4732164302) mL/min/1.73m2 MEDHAT (test code = MEDHAT) Association [...] or urine or abnormalities in imaging tests). [facility] METABOLIC PANEL (NA, K, CL, CO2, GLUCOSE, BUN, CREATININE, CA)2022-04-05 11:08:28* Test Item Value Reference Range Interpretation Comme nts NA (test code = 4562725277) 137 mmol/L 135-145 K (test code = 8827372526) 3.8 mmol/L 3.5-5 CL (test code = 1329032432) 104 mmol/L 98-108 CO2 TOTAL (test code = 7058103097) 27 mmol/L 23-31 AGAP (test code = 9900378177) 2-16 BUN (test code = 9519514911) 13 mg/dL 7-23 GLUCOSE (test code = 3546430833) 106 mg/dL 70-110 CREATININE (test code = 9364311980) 0.58 mg/dL 0.5-1.04 CALCIUM (test code = 0840084008) 8.6 mg/dL 8.6-10.6 eGFR (test code = 9047372287) mL/min/1.73m2 MEDHAT (test code = MEDHAT) Association [...] or urine or abnormalities in imaging tests). [facility] METABOLIC PANEL (NA, K, CL, CO2, GLUCOSE, BUN, CREATININE, CA)2022-04-05 11:08:28* Test Item Value Reference Range Interpretation Comme nts NA (test code = 0608936472) 137 mmol/L 135-145 K (test code = 9988460741) 3.8 mmol/L 3.5-5 CL (test code = 8452938433) 104 mmol/L 98-108 CO2 TOTAL (test code = 1067678848) 27 mmol/L 23-31 AGAP (test code = 0212591137) 2-16 BUN (test code = 7128636537) 13 mg/dL 7-23 GLUCOSE (test code = 7090404158) 106 mg/dL 70-110 CREATININE (test code = 2930865148) 0.58 mg/dL 0.5-1.04 CALCIUM (test code = 4397939804) 8.6 mg/dL 8.6-10.6 eGFR (test code = 5109962552) mL/min/1.73m2 MEDHAT (test code = MEDHAT) Association [...] or urine or abnormalities in imaging tests). [facility] METABOLIC PANEL (NA, K, CL, CO2, GLUCOSE, BUN, CREATININE, CA)2022-04-05 11:08:28* Test Item Value Reference Range Interpretation Comme nts NA (test code = 3211126873) 137 mmol/L 135-145 K (test code = 3331261164) 3.8 mmol/L 3.5-5 CL (test code = 2148961230) 104 mmol/L 98-108 CO2 TOTAL (test code = 2648020917) 27 mmol/L 23-31 AGAP (test code = 8732681794) 2-16 BUN (test code = 7525817415) 13 mg/dL 7-23 GLUCOSE (test code = 1968863529) 106 mg/dL 70-110 CREATININE (test code = 3546110354) 0.58 mg/dL 0.5-1.04 CALCIUM (test code = 8183196068) 8.6 mg/dL 8.6-10.6 eGFR (test code = 2154105066) mL/min/1.73m2 MEDHAT (test code = MEDHAT) Association [...] or urine or abnormalities in imaging tests). [facility] METABOLIC PANEL (NA, K, CL, CO2, GLUCOSE, BUN, CREATININE, CA)2022-04-05 11:08:28* Test Item Value Reference Range Interpretation Comme nts NA (test code = 8441442585) 137 mmol/L 135-145 K (test code = 0106764798) 3.8 mmol/L 3.5-5 CL (test code = 7584142385) 104 mmol/L 98-108 CO2 TOTAL (test code = 9920232542) 27 mmol/L 23-31 AGAP (test code = 3259261269) 2-16 BUN (test code = 4090526009) 13 mg/dL 7-23 GLUCOSE (test code = 6559859923) 106 mg/dL 70-110 CREATININE (test code = 4202157485) 0.58 mg/dL 0.5-1.04 CALCIUM (test code = 8128498615) 8.6 mg/dL 8.6-10.6 eGFR (test code = 2285060196) mL/min/1.73m2 MEDHAT (test code = MEDHAT) Association [...] or urine or abnormalities in imaging tests). [facility] METABOLIC PANEL (NA, K, CL, CO2, GLUCOSE, BUN, CREATININE, CA)2022-04-05 11:08:28* Test Item Value Reference Range Interpretation Comme nts NA (test code = 7208819173) 137 mmol/L 135-145 K (test code = 4959204015) 3.8 mmol/L 3.5-5 CL (test code = 3651311399) 104 mmol/L 98-108 CO2 TOTAL (test code = 9878966748) 27 mmol/L 23-31 AGAP (test code = 1163759762) 2-16 BUN (test code = 4205960563) 13 mg/dL 7-23 GLUCOSE (test code = 4218748747) 106 mg/dL 70-110 CREATININE (test code = 6639572110) 0.58 mg/dL 0.5-1.04 CALCIUM (test code = 8825882779) 8.6 mg/dL 8.6-10.6 eGFR (test code = 8567827980) mL/min/1.73m2 MEDHAT (test code = MEDHAT) Association [...] or urine or abnormalities in imaging tests). [facility] METABOLIC PANEL (NA, K, CL, CO2, GLUCOSE, BUN, CREATININE, CA)2022-04-05 11:08:28* Test Item Value Reference Range Interpretation Comme nts NA (test code = 6430320682) 137 mmol/L 135-145 K (test code = 3496385304) 3.8 mmol/L 3.5-5 CL (test code = 1528976197) 104 mmol/L 98-108 CO2 TOTAL (test code = 5500178110) 27 mmol/L 23-31 AGAP (test code = 0113490037) 2-16 BUN (test code = 0897985783) 13 mg/dL 7-23 GLUCOSE (test code = 9174386036) 106 mg/dL 70-110 CREATININE (test code = 3500201655) 0.58 mg/dL 0.5-1.04 CALCIUM (test code = 8069362461) 8.6 mg/dL 8.6-10.6 eGFR (test code = 2547390861) mL/min/1.73m2 MEDHAT (test code = MEDHAT) Association [...] or abnormalities in imaging tests). [facility] (NA, K, CL, CO2, GLUCOSE, BUN, CREATININE, CA)2022-04-05 11:08:28* Test Item Value Reference Range Interpretation Comme nts NA (test code = 7779525075) 137 mmol/L 135-145 K (test code = 8039015634) 3.8 mmol/L 3.5-5 CL (test code = 9894622948) 104 mmol/L 98-108 CO2 TOTAL (test code = 6623498951) 27 mmol/L 23-31 AGAP (test code = 1859758256) 2-16 BUN (test code = 9495253316) 13 mg/dL 7-23 GLUCOSE (test code = 7906038133) 106 mg/dL 70-110 CREATININE (test code = 1050133410) 0.58 mg/dL 0.5-1.04 CALCIUM (test code = 5008122218) 8.6 mg/dL 8.6-10.6 eGFR (test code = 8212016865) mL/min/1.73m2 MEDHAT (test code = MEDHAT) Association [...] or abnormalities in imaging tests). [facility] (NA, K, CL, CO2, GLUCOSE, BUN, CREATININE, CA)2022-04-05 11:08:28* Test Item Value Reference Range Interpretation Comme nts NA (test code = 4706173709) 137 mmol/L 135-145 K (test code = 7209276532) 3.8 mmol/L 3.5-5.0 CL (test code = 7148873989) 104 mmol/L 98-108 CO2 TOTAL (test code = 3255136243) 27 mmol/L 23-31 AGAP (test code = 8302045078) 2-16 BUN (test code = 5060200508) 13 mg/dL 7-23 GLUCOSE (test code = 6366796719) 106 mg/dL 70-110 CREATININE (test code = 6415221812) 0.58 mg/dL 0.50-1.04 CALCIUM (test code = 5437085827) 8.6 mg/dL 8.6-10.6 eGFR (test code = 2028611644) mL/min/1.73m2 MEDHAT (test code = MDEHAT) Association of Glomerular Filtration Rate (GFR) and [...] or abnormalities in imaging tests). [facility] (NA, K, CL, CO2, GLUCOSE, BUN, CREATININE, CA)2022-04-05 11:08:28* Test Item Value Reference Range Interpretation Comme nts NA (test code = 9663030508) 137 mmol/L 135-145 K (test code = 4580277747) 3.8 mmol/L 3.5-5.0 CL (test code = 4520545994) 104 mmol/L 98-108 CO2 TOTAL (test code = 6229950180) 27 mmol/L 23-31 AGAP (test code = 1172012818) 2-16 BUN (test code = 2428626848) 13 mg/dL 7-23 GLUCOSE (test code = 2017728186) 106 mg/dL 70-110 CREATININE (test code = 4922709611) 0.58 mg/dL 0.50-1.04 CALCIUM (test code = 6245676790) 8.6 mg/dL 8.6-10.6 eGFR (test code = 7195229265) mL/min/1.73m2 MEDHAT (test code = MEDHAT) Association [...] or urine or abnormalities in imaging tests). [facility] METABOLIC PANEL (NA, K, CL, CO2, GLUCOSE, BUN, CREATININE, CA)2022-04-05 11:08:28* Test Item Value Reference Range Interpretation Comme nts NA (test code = 1397785926) 137 mmol/L 135-145 K (test code = 6630104983) 3.8 mmol/L 3.5-5.0 CL (test code = 3498094410) 104 mmol/L 98-108 CO2 TOTAL (test code = 2267233338) 27 mmol/L 23-31 AGAP (test code = 6919653688) 2-16 BUN (test code = 9484757290) 13 mg/dL 7-23 GLUCOSE (test code = 6377151019) 106 mg/dL 70-110 CREATININE (test code = 2098959966) 0.58 mg/dL 0.50-1.04 CALCIUM (test code = 5943913258) 8.6 mg/dL 8.6-10.6 eGFR (test code = 7679640172) mL/min/1.73m2 MEDHAT (test code = MEDHAT) Association [...] or urine or abnormalities in imaging tests). [facility] METABOLIC PANEL (NA, K, CL, CO2, GLUCOSE, BUN, CREATININE, CA)2022-04-05 11:08:28* Test Item Value Reference Range Interpretation Comme nts NA (test code = 0786784789) 137 mmol/L 135-145 K (test code = 1176577976) 3.8 mmol/L 3.5-5.0 CL (test code = 3423584807) 104 mmol/L 98-108 CO2 TOTAL (test code = 6106409973) 27 mmol/L 23-31 AGAP (test code = 0403766514) 2-16 BUN (test code = 8347271545) 13 mg/dL 7-23 GLUCOSE (test code = 3571924399) 106 mg/dL 70-110 CREATININE (test code = 0862692351) 0.58 mg/dL 0.50-1.04 CALCIUM (test code = 0893530442) 8.6 mg/dL 8.6-10.6 eGFR (test code = 1190489925) mL/min/1.73m2 MEDHAT (test code = MEDHAT) Association [...] or urine or abnormalities in imaging tests). [facility] METABOLIC PANEL (NA, K, CL, CO2, GLUCOSE, BUN, CREATININE, CA)2022-04-05 11:08:28* Test Item Value Reference Range Interpretation Comme nts NA (test code = 9165735196) 137 mmol/L 135-145 K (test code = 4490194083) 3.8 mmol/L 3.5-5.0 CL (test code = 7828040756) 104 mmol/L 98-108 CO2 TOTAL (test code = 0851853985) 27 mmol/L 23-31 AGAP (test code = 2748935832) 2-16 BUN (test code = 1861171065) 13 mg/dL 7-23 GLUCOSE (test code = 9454365504) 106 mg/dL 70-110 CREATININE (test code = 8061332296) 0.58 mg/dL 0.50-1.04 CALCIUM (test code = 1075645317) 8.6 mg/dL 8.6-10.6 eGFR (test code = 4352539545) mL/min/1.73m2 MEDHAT (test code = MEDHAT) Association [...] or urine or abnormalities in imaging tests). [facility] METABOLIC PANEL (NA, K, CL, CO2, GLUCOSE, BUN, CREATININE, CA)2022-04-05 11:08:28* Test Item Value Reference Range Interpretation Comme nts NA (test code = 5994515526) 137 mmol/L 135-145 K (test code = 0664027048) 3.8 mmol/L 3.5-5.0 CL (test code = 8283689634) 104 mmol/L 98-108 CO2 TOTAL (test code = 0195779453) 27 mmol/L 23-31 AGAP (test code = 8502308410) 2-16 BUN (test code = 1617510055) 13 mg/dL 7-23 GLUCOSE (test code = 5663939235) 106 mg/dL 70-110 CREATININE (test code = 8315216046) 0.58 mg/dL 0.50-1.04 CALCIUM (test code = 8885765478) 8.6 mg/dL 8.6-10.6 eGFR (test code = 5360381603) mL/min/1.73m2 MEDHAT (test code = MEDHAT) Association [...] or urine or abnormalities in imaging tests). [facility] METABOLIC PANEL (NA, K, CL, CO2, GLUCOSE, BUN, CREATININE, CA)2022-04-05 11:08:28* Test Item Value Reference Range Interpretation Comme nts NA (test code = 7835190801) 137 mmol/L 135-145 K (test code = 3030124797) 3.8 mmol/L 3.5-5.0 CL (test code = 6697317441) 104 mmol/L 98-108 CO2 TOTAL (test code = 7146693836) 27 mmol/L 23-31 AGAP (test code = 6147655625) 2-16 BUN (test code = 7105696611) 13 mg/dL 7-23 GLUCOSE (test code = 0450980309) 106 mg/dL 70-110 CREATININE (test code = 5953081497) 0.58 mg/dL 0.50-1.04 CALCIUM (test code = 8503286875) 8.6 mg/dL 8.6-10.6 eGFR (test code = 8840897960) mL/min/1.73m2 MEDHAT (test code = MEDHAT) Association [...] or urine or abnormalities in imaging tests). [facility] METABOLIC PANEL (NA, K, CL, CO2, GLUCOSE, BUN, CREATININE, CA)2022-04-05 11:08:28* Test Item Value Reference Range Interpretation Comme nts NA (test code = 4445268533) 137 mmol/L 135-145 K (test code = 4406609219) 3.8 mmol/L 3.5-5.0 CL (test code = 3243641548) 104 mmol/L 98-108 CO2 TOTAL (test code = 5263414968) 27 mmol/L 23-31 AGAP (test code = 7001256585) 2-16 BUN (test code = 3395020173) 13 mg/dL 7-23 GLUCOSE (test code = 9121161702) 106 mg/dL 70-110 CREATININE (test code = 2130034512) 0.58 mg/dL 0.50-1.04 CALCIUM (test code = 2884871101) 8.6 mg/dL 8.6-10.6 eGFR (test code = 0065222106) mL/min/1.73m2 MEDHAT (test code = MEDHAT) Association [...] or urine or abnormalities in imaging tests). [facility] METABOLIC PANEL (NA, K, CL, CO2, GLUCOSE, BUN, CREATININE, CA)2022-04-05 11:08:28* Test Item Value Reference Range Interpretation Comme nts NA (test code = 4469235789) 137 mmol/L 135-145 K (test code = 2891256875) 3.8 mmol/L 3.5-5.0 CL (test code = 8741152785) 104 mmol/L 98-108 CO2 TOTAL (test code = 7562742469) 27 mmol/L 23-31 AGAP (test code = 3899568757) 2-16 BUN (test code = 4999264133) 13 mg/dL 7-23 GLUCOSE (test code = 8438218314) 106 mg/dL 70-110 CREATININE (test code = 9119407829) 0.58 mg/dL 0.50-1.04 CALCIUM (test code = 3761296545) 8.6 mg/dL 8.6-10.6 eGFR (test code = 7934721640) mL/min/1.73m2 MEDHAT (test code = MEDHAT) Association [...] or urine or abnormalities in imaging tests). [facility] with [id number] 10:50:28* Test Item Value Reference Range Interpretation Comme nts WBC (test code = 6690-2) See_Comment [[employer]] The system which generated this result transmitted reference range: 4.30 - 11.10 10*3/?L. The reference range was not used to interpret this result as normal/abnormal. RBC (test code = 789-8) See_Comment [[employer]] The system which generated this result transmitted [...] 32.7 g/dL 31.6-35.1 RDW-SD (test code = 56053-9) 43.6 fL 39-49.9 RDW-CV (test code = 788-0) 13.6 % 12-15.5 PLT (test code = 777-3) See_Comment [Automated [employer] ge] The system which generated this result transmitted reference range: 166 - 358 10*3/?L. The reference range was not used to interpret this result as normal/abnormal. MPV (test code = 83889-1) 9.9 fL 9.5-12.9 NRBC/100 WBC (test code = 2595220698) See_Comment [Automated [employer] ssage] The system which generated this result transmitted reference range: 0.0 - 10.0 /100 WBCs. The reference range was not used to interpret this result as normal/abnormal. NRBC x10^3 (test code = 0372453553) See_Comment [Automated [employer] ge] The system which generated this result transmitted reference range: 10*3/?L. The reference range was not used to interpret this result as normal/abnormal. GRAN MAT (NEUT) % (test code = 770-8) 65.5 % IMM GRAN % (test code = 7950506620) 0.30 % LYMPH % (test code = 736-9) 25.3 % MONO % (test code = 5905-5) 8.4 % EOS % (test code = 713-8) 0.0 % BASO % (test code = 706-2) 0.5 % GRAN MAT x10^3(ANC) (test code = 5095827463) 6.56 10*3/uL 1.88-7.09 IMM GRAN x10^3 (test code = 2325174263) 0.03 10*3/uL 0-0.06 LYMPH x10^3 (test code = 731-0) 2.53 10*3/uL 1.32-3.29 MONO x10^3 (test code = 742-7) 0.84 10*3/uL 0.33-0.92 EOS x10^3 (test code = 711-2) 0.03-0.39 L BASO x10^3 (test code = 704-7) 0.05 10*3/uL 0.01-0.07 Lab Interpretation (test code = 68585-6) Abnormal [facility] with Hbyaxjmtktpm2215-80-35 10:50:28* Test Item Value Reference Range Interpretation [...] 32.7 g/dL 31.6-35.1 RDW-SD (test code = 33025-5) 43.6 fL 39-49.9 RDW-CV (test code = 788-0) 13.6 % 12-15.5 PLT (test code = 777-3) See_Comment [Automated messa ge] The system which generated this result transmitted reference range: 166 - 358 10*3/?L. The reference range was not used to interpret this result as normal/abnormal. MPV (test code = 86678-9) 9.9 fL 9.5-12.9 NRBC/100 WBC (test code = 8120833939) See_Comment [Automated me ssage] The system which generated this result transmitted reference range: 0.0 - 10.0 /100 WBCs. The reference range was not used to interpret this result as normal/abnormal. NRBC x10^3 (test code = 3801517091) See_Comment [Automated messa ge] The system which generated this result transmitted reference range: 10*3/?L. The reference range was not used to interpret this result as normal/abnormal. GRAN MAT (NEUT) % (test code = 770-8) 65.5 % IMM GRAN % (test code = 5574943223) 0.30 % LYMPH % (test code = 736-9) 25.3 % MONO % (test code = 5905-5) 8.4 % EOS % (test code = 713-8) 0.0 % BASO % (test code = 706-2) 0.5 % GRAN MAT x10^3(ANC) (test code = 5039705067) 6.56 10*3/uL 1.88-7.09 IMM GRAN x10^3 (test code = 7366033645) 0.03 10*3/uL 0-0.06 LYMPH x10^3 (test code = 731-0) 2.53 10*3/uL 1.32-3.29 MONO x10^3 (test code = 742-7) 0.84 10*3/uL 0.33-0.92 EOS x10^3 (test code = 711-2) 0.03-0.39 L BASO x10^3 (test code = 704-7) 0.05 10*3/uL 0.01-0.07 Lab Interpretation (test code = 30473-6) Abnormal [facility] S7800-97-32 01:03:38* Test Item Value Reference Range Interpretation Comments TROPONIN I (test code = 1702427935) 0.001 ng/mL See_Comment [Automated message] The system [...] of biotin. Lab Interpretation (test code = 73681-8) Normal [facility] B2461-12-63 01:03:38* Test Item Value Reference Range Interpretation Comments TROPONIN I (test code = 3634062673) 0.001 ng/mL See_Comment [Automated message] The system [...] of biotin. Lab Interpretation (test code = 49687-4) Normal [facility] V1402-75-06 01:03:38* Test Item Value Reference Range Interpretation Comments TROPONIN I (test code = 8437765501) 0.001 ng/mL See_Comment [Automated message] The system [...] of biotin. Lab Interpretation (test code = 68586-6) Normal [facility] D6658-82-96 01:03:38* Test Item Value Reference Range Interpretation Comments TROPONIN I (test code = 6733489641) 0.001 ng/mL See_Comment [Automated message] The system [...] of biotin. Lab Interpretation (test code = 79696-0) Normal [facility] E2168-79-46 01:03:38* Test Item Value Reference Range Interpretation Comments TROPONIN I (test code = 1731074210) 0.001 ng/mL See_Comment [Automated message] The system [...] of biotin. Lab Interpretation (test code = 04902-6) [facility] B1803-98-56 01:03:38* Test Item Value Reference Range Interpretation Comments TROPONIN I (test code = 0434657669) 0.001 ng/mL See_Comment [Automated message] The system [...] of biotin. Lab Interpretation (test code = 97074-9) Normal [facility] B4081-15-49 01:03:38* Test Item Value Reference Range Interpretation Comments TROPONIN I (test code = 5488434664) 0.001 ng/mL See_Comment [Automated message] The system [...] of biotin. Lab Interpretation (test code = 66015-0) Normal [facility] Z2844-87-44 01:03:38* Test Item Value Reference Range Interpretation Comments TROPONIN I (test code = 6331168038) 0.001 ng/mL See_Comment [Automated message] The system [...] of biotin. Lab Interpretation (test code = 89667-4) Normal [facility] D0762-92-71 01:03:38* Test Item Value Reference Range Interpretation Comments TROPONIN I (test code = 8943785410) 0.001 ng/mL See_Comment [Automated message] The system [...] of biotin. Lab Interpretation (test code = 27041-0) Normal [facility] G3796-08-15 01:03:38* Test Item Value Reference Range Interpretation Comments TROPONIN I (test code = 9394901338) 0.001 ng/mL See_Comment [Automated message] The system [...] of biotin. Lab Interpretation (test code = 47564-2) Normal [facility] X8457-30-64 01:03:38* Test Item Value Reference Range Interpretation Comments TROPONIN I (test code = 1620946987) 0.001 ng/mL See_Comment [Automated message] The system [...] of biotin. Lab Interpretation (test code = 96979-0) Normal [facility] N2013-68-76 01:03:38* Test Item Value Reference Range Interpretation Comments TROPONIN I (test code = 6320918780) 0.001 ng/mL See_Comment [Automated message] The system [...] of biotin. Lab Interpretation (test code = 82213-2) Normal [facility] K0639-89-89 01:03:38* Test Item Value Reference Range Interpretation Comments TROPONIN I (test code = 1381194477) 0.001 ng/mL See_Comment [Automated message] The system [...] of biotin. Lab Interpretation (test code = 28278-7) Normal [facility] E5392-20-35 01:03:38* Test Item Value Reference Range Interpretation Comments TROPONIN I (test code = 0121717102) 0.001 ng/mL See_Comment [Automated message] The system [...] of biotin. Lab Interpretation (test code = 23762-4) Normal [facility] L0146-17-76 01:03:38* Test Item Value Reference Range Interpretation Comments TROPONIN I (test code = 2671226335) 0.001 ng/mL See_Comment [Automated message] The system [...] of biotin. Lab Interpretation (test code = 75995-5) Normal [facility] G8640-04-98 01:03:38* Test Item Value Reference Range Interpretation Comments TROPONIN I (test code = 0329638161) 0.001 ng/mL See_Comment [Automated message] The system [...] of biotin. Lab Interpretation (test code = 89510-7) Normal [facility] K9364-26-22 01:03:38* Test Item Value Reference Range Interpretation Comments TROPONIN I (test code = 0159832416) 0.001 ng/mL See_Comment [Automated message] The system [...] of biotin. Lab Interpretation (test code = 53222-1) Normal [facility] J2320-31-01 01:03:38* Test Item Value Reference Range Interpretation Comments TROPONIN I (test code = 4199793445) 0.001 ng/mL See_Comment [Automated message] The system [...] of biotin. Lab Interpretation (test code = 72971-7) Normal [facility] X7203-37-38 01:03:38* Test Item Value Reference Range Interpretation Comments TROPONIN I (test code = 7611106270) 0.001 ng/mL See_Comment [Automated message] The system [...] of biotin. Lab Interpretation (test code = 52906-1) Normal [facility] R2377-34-25 01:03:38* Test Item Value Reference Range Interpretation Comments TROPONIN I (test code = 7721607978) 0.001 ng/mL See_Comment [Automated message] The system [...] of biotin. Lab Interpretation (test code = 97512-8) Normal [facility] Q4615-30-19 01:03:38* Test Item Value Reference Range Interpretation Comments TROPONIN I (test code = 6928453788) 0.001 ng/mL See_Comment [Automated message] The system [...] of biotin. Lab Interpretation (test code = 80715-1) Normal [facility] W1477-92-92 01:03:38* Test Item Value Reference Range Interpretation Comments TROPONIN I (test code = 2511482713) 0.001 ng/mL See_Comment [Automated message] The system [...] of biotin. Lab Interpretation (test code = 12193-1) [facility] D9697-76-23 01:03:38* Test Item Value Reference Range Interpretation Comments TROPONIN I (test code = 9099820128) 0.001 ng/mL See_Comment [Automated message] The system [...] of biotin. Lab Interpretation (test code = 71946-3) [facility] 01:03:38* Test Item Value Reference Range Interpretation Comments TROPONIN I (test code = 2581100865) 0.001 ng/mL See_Comment [Automated message] The system [...] of biotin. Lab Interpretation (test code = 05584-7) [facility] Oykrvav8448-26-11 21:06:03* Test Item Value Reference Range Interpretation Comme nts ABO & RH (test code = 20) A Positive Performed at [facility] B Laboratory Services - ADC Blood [address] [place] [address]Rzfk Free: [phone] No. [id number] IAT (test code = 1185) Negative Performed at [facility] Blood [place] [address]Toll Free: [phone] No. [id number] [facility] and Screen - ONCE Ojcmskh9265-20-69 21:06:03* Test Item Value Reference Range Interpretation Comme nts ABO & RH (test code = 20) A Positive Performed at [address]oll Free: [phone] No. [id number] IAT (test code = 1185) Negative Performed at [place] [address]Toll Free: [phone] No. [id number] [facility] and Screen - ONCE Hyabedh9633-54-76 21:06:03* Test Item Value Reference Range Interpretation Comme nts ABO & RH (test code = 20) A Positive Performed at [place] [address]Toll Free: [phone] No. [id number] IAT (test code = 1185) Negative Performed at [place] [address]Toll Free: [phone] No. [id number] [facility] and Screen - ONCE Spjyqhx5589-65-09 21:06:03* Test Item Value Reference Range Interpretation Comme nts ABO & RH (test code = 20) A Positive Performed at [facility] Blood [address] [address]Uonb Free: [phone] No. [id number] IAT (test code = 1185) Negative Performed at [place] [address]Toll Free: [phone] No. [id number] [facility] and Screen - ONCE Farobxg6395-92-07 21:06:03* Test Item Value Reference Range Interpretation Comme nts ABO & RH (test code = 20) A Positive Performed at [place] [address]Toll Free: [phone] No. [id number] IAT (test code = 1185) Negative Performed at [address]Toll Free: [phone] No. [id number] [facility] Uumptpi8960-65-69 21:06:03* Test Item Value Reference Range Interpretation Comme nts ABO & RH (test code = 20) A Positive Performed at [place] [address]Toll Free: [phone] No. [id number] IAT (test code = 1185) Negative Performed at [place] [address]Toll Free: [phone] No. [id number] [facility] and Screen - ONCE Lpjjych2763-55-93 21:06:03* Test Item Value Reference Range Interpretation Comme nts ABO & RH (test code = 20) A Positive Performed at [address]Toll Free: [phone] No. [id number] IAT (test code = 1185) Negative Performed at [place] [address]Toll Free: [phone] No. [id number] [facility] Pmeygkh4872-51-76 21:06:03* Test Item Value Reference Range Interpretation Comme nts ABO & RH (test code = 20) A Positive Performed at [facility] Blood [address]Toll Free: [phone] No. [id number] IAT (test code = 1185) Negative Performed at [address]Toll Free: [phone] No. [id number] [facility] and Screen - ONCE Hndyqlt1019-82-57 21:06:03* Test Item Value Reference Range Interpretation Comme nts ABO & RH (test code = 20) A Positive Performed at [address]Toll Free: [phone] No. [id number] IAT (test code = 1185) Negative Performed at [address]Toll Free: [phone] No. [id number] [facility] and Screen - ONCE Lfrxojv2947-10-24 21:06:03* Test Item Value Reference Range Interpretation Comme nts ABO & RH (test code = 20) A Positive Performed at [address]Toll Free: [phone] No. [id number] IAT (test code = 1185) Negative Performed at [place] [address]Toll Free: [phone] No. [id number] [facility] and Screen - ONCE Ubcvlmh2772-46-72 21:06:03* Test Item Value Reference Range Interpretation Comme nts ABO & RH (test code = 20) A Positive Performed at [facility] Blood [address] [address]Pzul Free: [phone] No. [id number] IAT (test code = 1185) Negative Performed at [place] [address]Toll Free: [phone] No. [id number] [facility] and Screen - ONCE Kiwwuih3390-07-33 21:06:03* Test Item Value Reference Range Interpretation Comme nts ABO & RH (test code = 20) A Positive Performed at [place] [address]Toll Free: [phone] No. [id number] IAT (test code = 1185) Negative Performed at [address]Toll Free: [phone] No. [id number] [facility] and Screen - ONCE Aqjcbzm7639-67-20 21:06:03* Test Item Value Reference Range Interpretation Comme nts ABO & RH (test code = 20) A Positive Performed at [address]Toll Free: [phone] No. [id number] IAT (test code = 1185) Negative Performed at [address]Toll Free: [phone] No. [id number] [facility] Screen - ONCE Vbrnjqz6519-59-28 21:06:03* Test Item Value Reference Range Interpretation Comme nts ABO & RH (test code = 20) A Positive Performed at [address]Toll Free: [phone] No. [id number] IAT (test code = 1185) Negative Performed at [place] [address]Toll Free: [phone] No. [id number] [facility] Screen - ONCE Jrnlxxq6678-77-05 21:06:03* Test Item Value Reference Range Interpretation Comme nts ABO & RH (test code = 20) A Positive Performed at [address]Toll Free: [phone] No. [id number] IAT (test code = 1185) Negative Performed at [facility] Blood [address]Toll Free: [phone] No. [id number] [facility] Screen - ONCE Lmmyeeq6575-45-39 21:06:03* Test Item Value Reference Range Interpretation Comme nts ABO & RH (test code = 20) A Positive Performed at [address]Toll Free: [phone] No. [id number] IAT (test code = 1185) Negative Performed at [place] [address]Toll Free: [phone] No. [id number] [facility] Screen - ONCE Ugsomjy3090-74-27 21:06:03* Test Item Value Reference Range Interpretation Comme nts ABO & RH (test code = 20) A Positive Performed at [facility] Blood [place] [address]Toll Free: [phone] No. [id number] IAT (test code = 1185) Negative Performed at [place] [address]Toll Free: [phone] No. [id number] [facility] Screen - ONCE Enmksku5496-09-19 21:06:03* Test Item Value Reference Range Interpretation Comme nts ABO & RH (test code = 20) A Positive Performed at [facility] Blood [address] [address]Fart Free: [phone] No. [id number] IAT (test code = 1185) Negative Performed at [facility] Blood [place] [address]Toll Free: [phone] No. [id number] [facility] Qbosqcg1359-72-82 21:06:03* Test Item Value Reference Range Interpretation Comme nts ABO & RH (test code = 20) A Positive Performed at [address]Toll Free: [phone] No. [id number] IAT (test code = 1185) Negative Performed at [facility] Blood [place] [address]Toll Free: [phone] No. [id number] [facility] Screen - ONCE Fircpap0940-77-10 21:06:03* Test Item Value Reference Range Interpretation Comme nts ABO & RH (test code = 20) A Positive Performed at [address]Toll Free: [phone] No. [id number] IAT (test code = 1185) Negative Performed at [place] [address]Toll Free: [phone] No. [id number] [facility] Screen - ONCE Ojpmxky3735-34-59 21:06:03* Test Item Value Reference Range Interpretation Comme nts ABO & RH (test code = 20) A Positive Performed at [facility] Blood [place] [address]Toll Free: [phone] No. [id number] IAT (test code = 1185) Negative Performed at [facility] Blood [address] [address]Qtvy Free: [phone] No. [id number] [facility] Screen - ONCE Syysfam8790-25-96 21:06:03* Test Item Value Reference Range Interpretation Comme nts ABO & RH (test code = 20) A Positive Performed at [facility] Blood [place] [address]Toll Free: [phone] No. [id number] IAT (test code = 1185) Negative Performed at [facility] Blood [place] [address]Toll Free: [phone] No. [id number] [facility] Wvjhkhy6445-90-62 21:06:03* Test Item Value Reference Range Interpretation Comme nts ABO & RH (test code = 20) A Positive Performed at [address]Toll Free: [phone] No. [id number] IAT (test code = 1185) Negative Performed at [address]Toll Free: [phone] No. [id number] [facility] Screen - ONCE Nvcytij8271-57-64 21:06:03* Test Item Value Reference Range Interpretation Comme nts ABO & RH (test code = 20) A Positive Performed at [place] [address]Toll Free: [phone] No. [id number] IAT (test code = 1185) Negative Performed at [place] [address]Toll Free: [phone] No. [id number] [facility] Conf[facility] (Lab Only)2022-04-04 20:58:06* Test Item Value Reference Range Interpretation Comme nts ABO & RH (test code = 20) A Positive Performed at [facility] Blood [place] [address]Toll Free: [phone] No. [id number] [facility] Confirmation (Lab Only)2022-04-04 20:58:06* Test Item Value Reference Range Interpretation Comme nts ABO & RH (test code = 20) A Positive Performed at [facility] - [facility] Blood [address]Toll Free: [phone] No. [id number] [facility] Confirmation (Lab Only)2022-04-04 20:58:06* Test Item Value Reference Range Interpretation Comme nts ABO & RH (test code = 20) A Positive Performed at [place] [address]Toll Free: [phone] No. [id number] [facility] Confirmation (Lab Only)2022-04-04 20:58:06* Test Item Value Reference Range Interpretation Comme nts ABO & RH (test code = 20) A Positive Performed at [place] [address]Toll Free: [phone] No. [id number] [facility] Confirmation (Lab Only)2022-04-04 20:58:06* Test Item Value Reference Range Interpretation Comme nts ABO & RH (test code = 20) A Positive Performed at [place] [address]Toll Free: [phone] No. [id number] [facility] Confirmation (Lab Only)2022-04-04 20:58:06* Test Item Value Reference Range Interpretation Comme nts ABO & RH (test code = 20) A Positive Performed at [facility] Blood [place] [address]Toll Free: [phone] No. [id number] [facility] Confirmation (Lab Only)2022-04-04 20:58:06* Test Item Value Reference Range Interpretation Comme nts ABO & RH (test code = 20) A Positive Performed at [place] [address]Toll Free: [phone] No. [id number] [facility] Conf[facility] (Lab Only)2022-04-04 20:58:06* Test Item Value Reference Range Interpretation Comme nts ABO & RH (test code = 20) A Positive Performed at [address]Toll Free: [phone] No. [id number] [facility] Conf[facility] (Lab Only)2022-04-04 20:58:06* Test Item Value Reference Range Interpretation Comme nts ABO & RH (test code = 20) A Positive Performed at [place] [address]Toll Free: [phone] No. [id number] [facility] Confirmation (Lab Only)2022-04-04 20:58:06* Test Item Value Reference Range Interpretation Comme nts ABO & RH (test code = 20) A Positive Performed at [place] [address]Toll Free: [phone] No. [id number] [facility] Confirmation (Lab Only)2022-04-04 20:58:06* Test Item Value Reference Range Interpretation Comme nts ABO & RH (test code = 20) A Positive Performed at [place] [address]Toll Free: [phone] No. [id number] [facility] Confirmation (Lab Only)2022-04-04 20:58:06* Test Item Value Reference Range Interpretation Comme nts ABO & RH (test code = 20) A Positive Performed at [address]Toll Free: [phone] No. [id number] [facility] Confirmation (Lab Only)2022-04-04 20:58:06* Test Item Value Reference Range Interpretation Comme nts ABO & RH (test code = 20) A Positive Performed at [place] [address]Toll Free: [phone] No. [id number] [facility] Confirmation (Lab Only)2022-04-04 20:58:06* Test Item Value Reference Range Interpretation Comme nts ABO & RH (test code = 20) A Positive Performed at [facility] Blood [place] [address]Toll Free: [phone] No. [id number] [facility] Confirmation (Lab Only)2022-04-04 20:58:06* Test Item Value Reference Range Interpretation Comme nts ABO & RH (test code = 20) A Positive Performed at [address] Free: [phone] No. [id number] [facility] Confirmation (Lab Only)2022-04-04 20:58:06* Test Item Value Reference Range Interpretation Comme nts ABO & RH (test code = 20) A Positive Performed at [facility] Blood [place] [address]Toll Free: [phone] No. [id number] [facility] Confirmation (Lab Only)2022-04-04 20:58:06* Test Item Value Reference Range Interpretation Comme nts ABO & RH (test code = 20) A Positive Performed at [facility] Blood [place] [address]Toll Free: [phone] No. [id number] [facility] Confirmation (Lab Only)2022-04-04 20:58:06* Test Item Value Reference Range Interpretation Comme nts ABO & RH (test code = 20) A Positive Performed at [facility] Blood [place] [address]Toll Free: [phone] No. [id number] [facility] [place] Confirmation (Lab Only)2022-04-04 20:58:06* Test Item Value Reference Range Interpretation Comme nts ABO & RH (test code = 20) A Positive Performed at [place] [address]Toll Free: [phone] No. [id number] [facility] Confirmation (Lab Only)2022-04-04 20:58:06* Test Item Value Reference Range Interpretation Comme nts ABO & RH (test code = 20) A Positive Performed at [place] [address]Toll Free: [phone] No. [id number] [facility] Confirmation (Lab Only)2022-04-04 20:58:06* Test Item Value Reference Range Interpretation Comme nts ABO & RH (test code = 20) A Positive Performed at [place] [address]Toll Free: [phone] No. [id number] [facility] Confirmation (Lab Only)2022-04-04 20:58:06* Test Item Value Reference Range Interpretation Comme nts ABO & RH (test code = 20) A Positive Performed at [place] [address]Toll Free: [phone] No. [id number] [facility] Confirmation (Lab Only)2022-04-04 20:58:06* Test Item Value Reference Range Interpretation Comme nts ABO & RH (test code = 20) A Positive Performed at [place] [id number] Free: [phone] No. [id number] [facility] Confirmation (Lab Only)2022-04-04 20:58:06* Test Item Value Reference Range Interpretation Comme nts ABO & RH (test code = 20) A Positive Performed at [place] [address]Toll Free: [phone] No. [id number] [facility] [id number] 19:40:46* Test Item Value Reference Range Interpretation Comme nts PREG SERUM (test code = 9483575463) Negative MEDHAT (test code = MEDHAT) Less than 10 IU/L. ?If low titer or ectopic is suspected, resubmit specimen in 48-72 hours. [facility], [id number] 19:40:46* Test Item Value Reference Range Interpretation Comme nts PREG SERUM (test code = 3560750499) Negative MEDHAT (test code = MEDHAT) Less than 10 IU/L. ?If low titer or ectopic is suspected, resubmit specimen in 48-72 hours. [facility] [id number] 19:40:46* Test Item Value Reference Range Interpretation Comme nts PREG SERUM (test code = 8219757247) Negative MEDHAT (test code = MEDHAT) Less than 10 IU/L. ?If low titer or ectopic is suspected, resubmit specimen in 48-72 hours. [facility] [id number] 19:40:46* Test Item Value Reference Range Interpretation Comme nts PREG SERUM (test code = 9816433354) Negative MEDHAT (test code = MEDHAT) Less than 10 IU/L. ?If low titer or ectopic is suspected, resubmit specimen in 48-72 hours. [facility] [id number] 19:40:46* Test Item Value Reference Range Interpretation Comme nts PREG SERUM (test code = 1754865330) Negative MEDHAT (test code = MEDHAT) Less than 10 IU/L. ?If low titer or ectopic is suspected, resubmit specimen in 48-72 hours. [facility] [id number] 19:40:46* Test Item Value Reference Range Interpretation Comme nts PREG SERUM (test code = 2238681644) Negative MEDHAT (test code = MEDHAT) Less than 10 IU/L. ?If low titer or ectopic is suspected, resubmit specimen in 48-72 hours. [facility], [id number] 19:40:46* Test Item Value Reference Range Interpretation Comme nts PREG SERUM (test code = 8384249385) Negative MEDHAT (test code = MEDHAT) Less than 10 IU/L. ?If low titer or ectopic is suspected, resubmit specimen in 48-72 hours. [facility], [id number] 19:40:46* Test Item Value Reference Range Interpretation Comme nts PREG SERUM (test code = 7224323415) Negative MEDHAT (test code = MEDHAT) Less than 10 IU/L. ?If low titer or ectopic is suspected, resubmit specimen in 48-72 hours. [facility], [id number] 19:40:46* Test Item Value Reference Range Interpretation Comme nts PREG SERUM (test code = 7955252110) Negative MEDHAT (test code = MEDHAT) Less than 10 IU/L. ?If low titer or ectopic is suspected, resubmit specimen in 48-72 hours. [facility], [id number] 19:40:46* Test Item Value Reference Range Interpretation Comme nts PREG SERUM (test code = 8061906538) Negative MEDHAT (test code = MEDHAT) Less than 10 IU/L. ?If low titer or ectopic is suspected, resubmit specimen in 48-72 hours. [facility], [id number] 19:40:46* Test Item Value Reference Range Interpretation Comme nts PREG SERUM (test code = 5999624092) Negative MEDHAT (test code = MEDHAT) Less than 10 IU/L. ?If low titer or ectopic is suspected, resubmit specimen in 48-72 hours. [facility], [id number] 19:40:46* Test Item Value Reference Range Interpretation Comme nts PREG SERUM (test code = 6515380808) Negative MEDHAT (test code = MEDHAT) Less than 10 IU/L. ?If low titer or ectopic is suspected, resubmit specimen in 48-72 hours. [facility], [id number] 19:40:46* Test Item Value Reference Range Interpretation Comme nts PREG SERUM (test code = 4903072605) Negative MEDHAT (test code = MEDHAT) Less than 10 IU/L. ?If low titer or ectopic is suspected, resubmit specimen in 48-72 hours. [facility], [id number] 19:40:46* Test Item Value Reference Range Interpretation Comme nts PREG SERUM (test code = 8976551873) Negative MEDHAT (test code = MEDHAT) Less than 10 IU/L. ?If low titer or ectopic is suspected, resubmit specimen in 48-72 hours. [facility], [id number] 19:40:46* Test Item Value Reference Range Interpretation Comme nts PREG SERUM (test code = 0489138176) Negative MEDHAT (test code = MEDHAT) Less than 10 IU/L. ?If low titer or ectopic is suspected, resubmit specimen in 48-72 hours. [facility], [id number] 19:40:46* Test Item Value Reference Range Interpretation Comme nts PREG SERUM (test code = 1954669158) Negative MEDHAT (test code = MEDHAT) Less than 10 IU/L. ?If low titer or ectopic is suspected, resubmit specimen in 48-72 hours. [facility], [id number] 19:40:46* Test Item Value Reference Range Interpretation Comme nts PREG SERUM (test code = 4902164649) Negative MEDHAT (test code = MEDHAT) Less than 10 IU/L. ?If low titer or ectopic is suspected, resubmit specimen in 48-72 hours. [facility], [id number] 19:40:46* Test Item Value Reference Range Interpretation Comme nts PREG SERUM (test code = 0417104189) Negative MEDHAT (test code = MEDHAT) Less than 10 IU/L. ?If low titer or ectopic is suspected, resubmit specimen in 48-72 hours. [facility], [id number] 19:40:46* Test Item Value Reference Range Interpretation Comme nts PREG SERUM (test code = 0084336960) Negative MEDHAT (test code = MEDHAT) Less than 10 IU/L. ?If low titer or ectopic is suspected, resubmit specimen in 48-72 hours. [facility], [id number] 19:40:46* Test Item Value Reference Range Interpretation Comme nts PREG SERUM (test code = 1747966960) Negative MEDHAT (test code = MEDHAT) Less than 10 IU/L. ?If low titer or ectopic is suspected, resubmit specimen in 48-72 hours. [facility], [id number] 19:40:46* Test Item Value Reference Range Interpretation Comme nts PREG SERUM (test code = 3124798382) Negative MEDHAT (test code = MEDHAT) Less than 10 IU/L. ?If low titer or ectopic is suspected, resubmit specimen in 48-72 hours. [facility], [id number] 19:40:46* Test Item Value Reference Range Interpretation Comme nts PREG SERUM (test code = 7457093704) Negative MEDHAT (test code = MEDHAT) Less than 10 IU/L. ?If low titer or ectopic is suspected, resubmit specimen in 48-72 hours. [facility], [id number] 19:40:46* Test Item Value Reference Range Interpretation Comme nts PREG SERUM (test code = 6779623536) Negative MEDHAT (test code = MEDHAT) Less than 10 IU/L. ?If low titer or ectopic is suspected, resubmit specimen in 48-72 hours. [facility], [id number] 19:40:46* Test Item Value Reference Range Interpretation Comme nts PREG SERUM (test code = 9592932878) Negative MEDHAT (test code = MEDHAT) Less than 10 IU/L. ?If low titer or ectopic is suspected, resubmit specimen in 48-72 hours. [facility] WITH [id number] 18:55:21* Test Item Value Reference Range Interpretation [...] 32.5 g/dL 31.6-35.1 RDW-SD (test code = 75459-6) 43.0 fL 39-49.9 RDW-CV (test code = 788-0) 13.2 % 12-15.5 PLT (test code = 777-3) See_Comment [Automated message] The system which generated this result transmitted reference range: 166 - 358 10*3/?L. The reference range was not used to interpret this result as normal/abnormal. MPV (test code = 57866-6) 10.8 fL 9.5-12.9 NRBC/100 WBC (test code = 6895801102) See_Comment [Automated message] The system which generated this result transmitted reference range: 0.0 - 10.0 /100 WBCs. The reference range was not used to interpret this result as normal/abnormal. NRBC x10^3 (test code = 3310763130) See_Comment [Automated message] The system which generated this result transmitted reference range: 10*3/?L. The reference range was not used to interpret this result as normal/abnormal. GRAN MAT (NEUT) % (test code = 770-8) 82.1 % IMM GRAN % (test code = 8415356195) 0.60 % LYMPH % (test code = 736-9) 12.4 % MONO % (test code = 5905-5) 4.3 % EOS % (test code = 713-8) 0.1 % BASO % (test code = 706-2) 0.5 % GRAN MAT x10^3(ANC) (test code = 9347868287) 10.62 10*3/uL 1.88-7.09 H IMM GRAN x10^3 (test code = 5066792470) 0.08 10*3/uL 0-0.06 H LYMPH x10^3 (test code = 731-0) 1.60 10*3/uL 1.32-3.29 MONO x10^3 (test code = 742-7) 0.56 10*3/uL 0.33-0.92 EOS x10^3 (test code = 711-2) 0.03-0.39 L BASO x10^3 (test code = 704-7) 0.06 10*3/uL 0.01-0.07 Lab Interpretation (test code = 21366-4) Abnormal [facility]. METABOLIC PANEL (36782)2022-04-04 18:55:21* Test Item Value Reference Range Interpretation Comme nts NA (test code = 3669243985) 141 mmol/L 135-145 K (test code = 7941074683) 4.5 mmol/L 3.5-5 CL (test code = 9918216471) 103 mmol/L 98-108 CO2 TOTAL (test code = 0966277179) 27 mmol/L 23-31 AGAP (test code = 1314932133) 2-16 BUN (test code = 0687403465) 14 mg/dL 7-23 GLUCOSE (test code = 9622683737) 115 mg/dL 70-110 H CREATININE (test code = 5828292393) 0.62 mg/dL 0.5-1.04 TOTAL BILI (test code = 4866885910) 0.7 mg/dL 0.1-1.1 CALCIUM (test code = 6678454396) 9.5 mg/dL 8.6-10.6 T PROTEIN (test code = 3801127064) 7.3 g/dL 6.3-8.2 ALBUMIN (test code = 3291717464) 4.7 g/dL 3.5-5 ALK PHOS (test code = 0759089370) 65 U/L 34-122 ALTv (test code = 1742-6) 22 U/L 5-35 AST(SGOT) (test code = 8463861935) 39 U/L 13-40 eGFR (test code = 4706236194) mL/min/1.73m2 MEDHAT (test code = MEDHAT) Association [...] imaging tests). Lab Interpretation (test code = 65363-4) [facility]* Test Item Value Reference Range Interpretation Comme nts LIPASE (test code = 6725355388) 70 U/L 0-220 Lab Interpretation (test cod e = 59061-4) [facility] 18:55:21* Test Item Value Reference Range Interpretation Comme nts LIPASE (test code = 5648335048) 70 U/L 0-220 Lab Interpretation (test cod e = 44506-6) [facility]OL[facility] PAN[facility] (58366)2022-04-04 18:55:21* Test Item Value Reference Range Interpretation Comme nts NA (test code = 4180257793) 141 mmol/L 135-145 K (test code = 4063747207) 4.5 mmol/L 3.5-5 CL (test code = 5165960765) 103 mmol/L 98-108 CO2 TOTAL (test code = 3701853606) 27 mmol/L 23-31 AGAP (test code = 0283037495) 2-16 BUN (test code = 6396024533) 14 mg/dL 7-23 GLUCOSE (test code = 6056408584) 115 mg/dL 70-110 H CREATININE (test code = 1083894351) 0.62 mg/dL 0.5-1.04 TOTAL BILI (test code = 5489174367) 0.7 mg/dL 0.1-1.1 CALCIUM (test code = 1179271467) 9.5 mg/dL 8.6-10.6 T PROTEIN (test code = 6041345870) 7.3 g/dL 6.3-8.2 ALBUMIN (test code = 1036973644) 4.7 g/dL 3.5-5 ALK PHOS (test code = 7039009649) 65 U/L 34-122 ALTv (test code = 1742-6) 22 U/L 5-35 AST(SGOT) (test code = 9652304126) 39 U/L 13-40 eGFR (test code = 6474771949) mL/min/1.73m2 MEDHAT (test code = MEDHAT) Association [...] imaging tests). Lab Interpretation (test code = 68547-0) Abnormal [address]10-03 18:55:21* Test Item Value Reference Range Interpretation Comme nts LIPASE (test code = 3834872345) 70 U/L 0-220 Lab Interpretation (test cod e = 79031-9) Normal [address]10-03 18:55:21* Test Item Value Reference Range Interpretation Comme nts LIPASE (test code = 9247897604) 70 U/L 0-220 Lab Interpretation (test cod e = 73123-4) Normal [address]03 18:55:21* Test Item Value Reference Range Interpretation Comme nts LIPASE (test code = 6944573685) 70 U/L 0-220 Lab Interpretation (test cod e = 51617-4) Normal [place] [address]-03 18:55:21* Test Item Value Reference Range Interpretation Comme nts LIPASE (test code = 0460161505) 70 U/L 0-220 Lab Interpretation (test cod e = 47371-4) Normal [address]10-03 18:55:21* Test Item Value Reference Range Interpretation Comme nts LIPASE (test code = 4011672122) 70 U/L 0-220 Lab Interpretation (test cod e = 05955-8) Normal [place] [address]03 18:55:21* Test Item Value Reference Range Interpretation Comme nts LIPASE (test code = 1265839657) 70 U/L 0-220 Lab Interpretation (test cod e = 02316-1) Normal [address]03 18:55:21* Test Item Value Reference Range Interpretation Comme nts LIPASE (test code = 0104067472) 70 U/L 0-220 Lab Interpretation (test cod e = 81703-0) Normal [address]03 18:55:21* Test Item Value Reference Range Interpretation Comme nts LIPASE (test code = 1042115169) 70 U/L 0-220 Lab Interpretation (test cod e = 26450-7) [address]10-03 18:55:21* Test Item Value Reference Range Interpretation Comme nts LIPASE (test code = 3941761644) 70 U/L 0-220 Lab Interpretation (test cod e = 50396-6) [place] [address]-03 18:55:21* Test Item Value Reference Range Interpretation Comme nts LIPASE (test code = 4329860020) 70 U/L 0-220 Lab Interpretation (test cod e = 69496-2) [place] [address]-03 18:55:21* Test Item Value Reference Range Interpretation Comme nts LIPASE (test code = 1929833065) 70 U/L 0-220 Lab Interpretation (test cod e = 38272-4) [place] [address]-03 18:55:21* Test Item Value Reference Range Interpretation Comme nts LIPASE (test code = 5194305510) 70 U/L 0-220 Lab Interpretation (test cod e = 01492-7) [address]10-03 18:55:21* Test Item Value Reference Range Interpretation Comme nts LIPASE (test code = 5129897800) 70 U/L 0-220 Lab Interpretation (test cod e = 67667-1) [address]10-03 18:55:21* Test Item Value Reference Range Interpretation Comme nts LIPASE (test code = 5433069877) 70 U/L 0-220 Lab Interpretation (test cod e = 88934-1) [facility]* Test Item Value Reference Range Interpretation Comme nts LIPASE (test code = 3729381153) 70 U/L 0-220 Lab Interpretation (test cod e = 91783-8) [address]03 18:55:21* Test Item Value Reference Range Interpretation Comme nts LIPASE (test code = 3237380507) 70 U/L 0-220 Lab Interpretation (test cod e = 76233-1) [facility] 18:55:21* Test Item Value Reference Range Interpretation Comme nts LIPASE (test code = 0045332831) 70 U/L 0-220 Lab Interpretation (test cod e = 04088-4) [facility] 18:55:21* Test Item Value Reference Range Interpretation Comme nts LIPASE (test code = 6433319015) 70 U/L 0-220 Lab Interpretation (test cod e = 12833-9) [facility] 18:55:21* Test Item Value Reference Range Interpretation Comme nts LIPASE (test code = 3484845054) 70 U/L 0-220 Lab Interpretation (test cod e = 85946-3) [facility]55:21* Test Item Value Reference Range Interpretation Comme nts LIPASE (test code = 0375555467) 70 U/L 0-220 Lab Interpretation (test cod e = 83168-9) [facility] 18:55:21* Test Item Value Reference Range Interpretation Comme nts LIPASE (test code = 6908995846) 70 U/L 0-220 Lab Interpretation (test cod e = 52088-3) [facility] 18:55:21* Test Item Value Reference Range Interpretation Comme nts LIPASE (test code = 1751364144) 70 U/L 0-220 Lab Interpretation (test cod e = 75061-3) [facility] (10475)2022-04-01 04:58:46* Test Item Value Reference Range Interpretation Comme nts NA (test code = 2971620918) 139 mmol/L 135-145 K (test code = 0469565930) 5.0 mmol/L 3.5-5 CL (test code = 0162397515) 102 mmol/L 98-108 CO2 TOTAL (test code = 7735825148) 27 mmol/L 23-31 AGAP (test code = 8252814800) 2-16 BUN (test code = 9419461440) 13 mg/dL 7-23 GLUCOSE (test code = 8779380389) 104 mg/dL 70-110 CREATININE (test code = 3558238921) 0.69 mg/dL 0.5-1.04 TOTAL BILI (test code = 8926855803) 0.5 mg/dL 0.1-1.1 CALCIUM (test code = 9501135561) 9.6 mg/dL 8.6-10.6 T PROTEIN (test code = 8897528865) 7.2 g/dL 6.3-8.2 ALBUMIN (test code = 2421909046) 4.6 g/dL 3.5-5 ALK PHOS (test code = 9672605261) 60 U/L 34-122 ALTv (test code = 1742-6) 15 U/L 5-35 AST(SGOT) (test code = 5219550566) 26 U/L 13-40 eGFR (test code = 7531901112) mL/min/1.73m2 MEDHAT (test code = MEDHAT) Association [...] or abnormalities in imaging tests). [facility] 04:58:25* Test Item Value Reference Range Interpretation Comme nts LIPASE (test code = 6820782623) 71 U/L 0-220 Lab Interpretation (test cod e = 53313-8) [facility] [id number] 04:46:42* Test Item Value Reference Range Interpretation Comme nts WBC (test code = 6690-2) See_Comment [Automated Smartestinga ge] The system which generated this result transmitted reference range: 4.30 - 11.10 10*3/?L. The reference range was not used to interpret this result as normal/abnormal. RBC (test code = 789-8) See_Comment [Automated Smartestinga ge] The system which generated this result [...] 32.1 g/dL 31.6-35.1 RDW-SD (test code = 57405-7) 42.5 fL 39-49.9 RDW-CV (test code = 788-0) 13.2 % 12-15.5 PLT (test code = 777-3) See_Comment [Automated Smartestinga ge] The system which generated this result transmitted reference range: 166 - 358 10*3/?L. The reference range was not used to interpret this result as normal/abnormal. MPV (test code = 48804-1) 10.4 fL 9.5-12.9 NRBC/100 WBC (test code = 6394696079) See_Comment [Automated [employer] ssage] The system which generated this result transmitted reference range: 0.0 - 10.0 /100 WBCs. The reference range was not used to interpret this result as normal/abnormal. NRBC x10^3 (test code = 9327249797) See_Comment [Automated me ssage] The system which generated this result transmitted reference range: 10*3/?L. The reference range was not used to interpret this result as normal/abnormal. GRAN MAT (NEUT) % (test code = 770-8) 69.5 % IMM GRAN % (test code = 8144428881) 0.40 % LYMPH % (test code = 736-9) 23.3 % MONO % (test code = 5905-5) 5.3 % EOS % (test code = 713-8) 0.7 % BASO % (test code = 706-2) 0.8 % GRAN MAT x10^3(ANC) (test code = 2953497112) 5.73 10*3/uL 1.88-7.09 IMM GRAN x10^3 (test code = 8909144620) 0.03 10*3/uL 0-0.06 LYMPH x10^3 (test code = 731-0) 1.92 10*3/uL 1.32-3.29 MONO x10^3 (test code = 742-7) 0.44 10*3/uL 0.33-0.92 EOS x10^3 (test code = 711-2) 0.06 10*3/uL 0.03-0.39 BASO x10^3 (test code = 704-7) 0.07 10*3/uL 0.01-0.07 [facility] [id number] 04:37:00* Test Item Value Reference Range Interpretation Comme nts POCT PREG (test code = 1605) negative Lab Interpretation (test cod e = 37432-2) [facility] 04:37:00* Test Item Value Reference Range Interpretation Comme nts POCT PREG (test code = 1605) negative Lab Interpretation (test cod e = 91278-6) Normal [facility], [id number] 14:05:00* Test Item Value Reference Range Interpretation Comme nts Coronavirus NAAT, COVD19 (test code = [id number]) SARS results, including Patient Name, or MRN, were Coronavirus NAAT, COVD19 (test code = OMMPUEQ8DHRP7.1) ical-devices/emergenc e-zts-xuekesgicgqowa. SARS-CoV-2 NAAT Result: (test code = SARS-CoV-2 NAAT Result:) Positive by RT-PCR A COVID-19 Status: AsymptomaticHCG, Urine Qual (LAB)2021-07-09 14:05:00* Test Item Value Reference Range Interpretation Comme nts HCG, Urine, Qual (test code = HCGU) Negative Negative Drug Screen,Joiod9108-78-16 14:05:00* Test Item Value Reference Range Interpretation [...] = UPROP) Negative Negative UA, Urinalysis w Fxuozeul5601-99-80 14:05:00* Test Item Value Reference Range Interpretation Comme nts Color,Urine (test code = UCOL) Yellow Yellow Clarity,Urine (test code = UCLAR) Clear Clear Ph, Urine (test code = UPH) 8.5 5.0-8.0 H Specific [place],Urine (test code = USG) 1.020 1.005-1.030 N [...] None Seen A Complete Blood Count Auto Vrgd9015-03-37 13:20:00* Test Item Value Reference Range Interpretation [...] code = NRBCP) 0 % Comprehensive Metabolic Zrifm6067-91-36 13:20:00* Test Item Value Reference Range Interpretation [...] = ALP) 72 U/L 46-116 N Ethanol Iomgw0427-72-14 13:20:00* Test Item Value Reference Range Interpretation Comme nts Ethanol (test code = ETOH) < 3 mg/dL The pharmacologi torito response to blood alcohol levels mayvary from individual to individual. The fatal concentrationhas been reported to be >400mg/dL. HCG, Urine Qual (LAB)2021-05-26 00:20:00* Test Item Value Reference Range Interpretation Comme nts HCG, Urine, Qual (test code = HCGU) Negative Negative UA, Urinalysis Rflx Cult/Tpkza4226-93-22 00:20:00* Test Item Value Reference Range Interpretation Comme nts Color,Urine (test code = UCOL) Yellow Yellow Clarity,Urine (test code = UCLAR) Clear Clear PH,Urine (test code = UPH.XX) 7.5 5.5-8.5 Specific [place],Urine (test code = USG) 1.020 1.005-1.030 N [...] code = ULEU) Trace cells/uL Negative Urine Bcywiypresa7310-04-49 00:20:00* Test Item Value Reference Range Interpretation Comme nts RBC,Urine (test code = URBC.XX) 0-5 /HPF None Seen WBC,Urine (test code = UWBC.XX) 6-10 /HPF None Seen A Squamous Epithelial Cell,Uri ne (test code = USQEPI.XX) 74-200 /HPF None Seen A Bacteria,Urine (test code = UBACT) Moderate /HPF None Seen A Drug Screen,Twtnp8457-19-00 00:20:00* Test Item Value Reference Range Interpretation [...] UPROP) Negative Negative Complete Blood Count Auto Dwzj8194-04-45 00:09:00* Test Item Value Reference Range Interpretation [...] code = NRBCP) 0 % Comprehensive Metabolic Wbcpz6939-07-80 00:09:00* Test Item Value Reference Range Interpretation [...] = ALP) 83 U/L 46-116 N Ethanol Weeem7865-45-10 00:09:00* Test Item Value Reference Range Interpretation Comme nts Ethanol (test code = ETOH) < 3 mg/dL The pharmacologi torito response to blood alcohol levels mayvary from individual to individual. The fatal concentrationhas been reported to be >400mg/dL. Coronavirus PCR, COVID19 Behjv1533-20-06 00:08:00* Test Item Value Reference Range Interpretation Comme nts Coronavirus PCR, COVID19 Rapid (test code = SARSCOV2) For use under Emergency Use Authorization (EUA) only. Coronavirus PCR, COVID19 Rapid (test code = VHNVEDQ17.1) Reference Range: Negative SARS-CoV-2 PCR Result: (test code = SARS-CoV-2 PCR Result:) Negative by RT-PCR COVID-19 Status: AsymptomaticCARBAMAZEPHINE (TEGRETOL)2020-09-26 08:42:00* Test Item Value Reference Range Interpretation Comme nts CARBAMAZPN (test code = 98A) 19.3 ug/mL 4.0-12.0 HH CARBAMAZEPHINE (TEGRETOL)2020-09-26 05:04:00* Test Item Value Reference Range Interpretation Comme nts CARBAMAZPN (test code = 98A) 20.1 ug/mL 4.0-12.0 HH URINALYSIS WITH ZNFVV0122-26-96 02:45:00* Test Item Value Reference Range Interpretation [...] code = USPERM) /HPF NONE DRUGS OF DTPMT5126-97-21 02:43:00* Test Item Value Reference Range Interpretation [...] clinical and epidemiological data PRO TIME AND [id number] 00:51:00* Test Item Value Reference Range Interpretation [...] Heparin. Order Code is ANTI-XA COMPREHENSIVE METABOLIC [id number] 00:47:00* Test Item Value Reference Range Interpretation [...] used to interpret this result as normal/abnormal. TAUAKEKLHDMOQ4830-99-26 00:47:00* Test Item Value Reference Range Interpretation Comme nts ACETAMINPH (test code = 94M) 3.6 ug/mL 10.0-30.0 L CARDIAC [id number] 00:47:00* Test Item Value Reference Range Interpretation [...] used to interpret this result as normal/abnormal. WGTCVRPVHEF8005-13-15 00:42:00* Test Item Value Reference Range Interpretation Comme nts SALICYLATE (test code = 94B) <1.7 mg/dL 2.8-20.0 L SERUM [id number] 00:38:00* Test Item Value Reference Range Interpretation [...] Notes Date/Time Note Provider Source 2023-06-28 15:53:09 z8dLu4P33bhHeynpk+XYSBmWzxUxSxxoWfnmPFV 4IFku3x6zOhWhVTwX5mRivOj49716-18-65U87: 53:09 Called pt to inform her that I've yet to here from Dr. Flores yet as it is her day off. Advised pt to keep her appointment tomorrow so they can make a plan going forward for IUD insertion as pt would like to get rx's miso prior to procedure. Pt verbalized understanding. 49088-2Wpsmxwbai encounter CpalJF6485-60-25M25:54:15Telephone encounter NoteTXT1.2.840.222696.1.13.104.2.7.2.72 7879|[id number] for patient odor82508-6BpewZWAIWXPBAJSNwfaxxowb C-CDA narrative [id number] E Burch MA[address] Kj[id number] ZYTDOPKUXUHQRARSIRX8982-35-11Q56:54:151 .2.840.295813.1.72.3.15|1.2.840.563606. 1.13.104.2.7.2.727879_[id number] Marci Valderrama MA [facility] 2023-06-28 09:21:56 yGIbcp334LumX2XSEahP3/3Jct5xAVOlmcDVxNs b+xSzrmXnO2mYxaTj+cuGmxvL6768-99-38V21: 21:56 Spoke to pt regarding IUD appt. [...] further instructions before the end of today. 37448-9Iabmvcuxq encounter TlwgTO8145-78-50Q86:26:34Telephone encounter NoteTXT1.2.840.586490.1.13.104.2.7.2.72 7879|[id number] for patient gcnd34638-9HmriHCHNMJUHGZLAyflfkihc C-CDA narrative textUT[address] VrscLilrdpjzgWsflbbnpiVRJJ8794451976PQK BILDMOMRQCUVONWBAMM3487-15-18L09:26:341 .2.840.893084.1.72.3.15|1.2.840.559817. 1.13.104.2.7.2.727879_[id number] [facility] 2023-06-28 09:12:52 2eF/v+[employer] (Cad)+l/iB/5kaYfu4xvfSC5olFi6/PH38Ej fI4EwTi9yw/Yv4tRSb5Se5fa84179-10-16C70: 12:52 Left voicemail for pt to return my call. 53615-8Vpgaqjnnv encounter BaaaLT9554-14-37R10:13:11Telephone encounter NoteTXT1.2.840.573563.1.13.104.2.7.2.72 7879|[id number] for patient fysh99833-2RsvpGFMZRNHTTADLxeqgxjxh C-CDA narrative text[id number] OQPRWJZNBZYKWNWUNDY4562-28-77V76:13:111 .2.840.346529.1.72.3.15|1.2.840.503791. 1.13.104.2.7.2.727879_[id number] [facility] 2023-06-28 08:59:28 BlZ9p63IFe/3VevtFY2c+94VoCFRD8TytDHCdHZ dtm+XzitpMXDGRsX1c6JqdXqr5691-26-56V13: 59:28 Patient states she is getting an IUD tomorrow, she wants to know if there is a prescription she needs to take before the appointment. 15489-5Inrowklam encounter FyuqIH2566-99-73M28:00:18Telephone encounter NoteTXT1.2.840.467463.1.13.104.2.7.2.72 7879|[id number] for patient xnnt80056-5TpxbATJTMHEUPWNPdtgyennz C-CDA narrative [id number] S Hernandez[id number] BOFHSLCHBQTMRGBVAZH5044-53-82T29:00:181 .2.840.333361.1.72.3.15|1.2.840.426920. 1.13.104.2.7.2.727879_[id number] Ginny Peng [facility] 2023-03-16 15:45:00 +gQtboBlRMFm/qLJc9t0st9YsfB26nfn0lO/JI2 gVFolvtdtfmg0ADx9/gtDPJVG8223-31-80G30: 45:00 Images from the original note were not included.Patient has been identified by and name and was provided with cup, antiseptic towelette, and clean catch instructions. 1 urine specimen(s) sent. Unpreserved 1 Urine Culture Aptima tube Other urine 37347-9Kxtma NnizON9261-62-49B81:48:50Nurse NoteTXT1.2.840.920496.1.13.104.2.7.2.72 7879|[id number] for patient tfab36217-0Ghoyk Note[address] UyzxRlwtesxdjSfdnkmgmrYFLQ4822903593IIR FCOLRMLBFBASFWUULXG5080-47-69O70:48:501 .2.840.614632.1.72.3.15|1.2.840.334414. 1.13.104.2.7.2.727879_[id number] [facility] 2022-07-15 20:52:00 BJ1482284976xqKT8cZeUAShRwNxDZhqiuq0f+N l/Mv8qcBI2G7zeq3OdLeHzBSWaXyD2o3mymkh84 25-07-12T20:52:00 [facility] Jyoti ([facility]EMERGENCY PROVIDER REPORTREPORT#:[id number] REPORT STATUS: SignedDATE:07/15/22 TIME: 2051 PATIENT: MEE POMPA UNIT #: [id number]#: [id number] ROOM: BED:AGE: 22 SEX: F PCP PHYS: [...] Ox 98 07/15 1925 B/P 122/75 07/15 192 B/P Mean 90 07/15 1925 O2 Delivery [...] Result Date Time Pulse Ox 98 07/15 192 B/P 122/75 07/15 192 B/P Mean 90 07/15 1925 O2 Delivery Room air 07/15 1925 Temp 37.0 07/15 1925 Pulse 119 07/15 192 Resp 14 07/15 1925 Last Documented: Result Date Time Pulse Ox 98 07/15 1926 B/P 122/75 07/15 192 B/P Mean 90 07/15 1925 O2 Delivery Room air 07/15 1925 Temp 37.0 07/15 1925 Pulse 119 07/15 1925 Resp 14 07/15 1925 All vital signs available at the time [...] if your symptoms worsenDeparture Luis M PCP LISTPATRICIO PCP LISTWORK/SCHOOL EXCUSE VARIABLE Discharge NoteI have [...] docSmoking Cessation Screened, non user at 2145RPT #:[id number] OF REPORTEDEmergen department aukfih8798-93-56K00:52:00T.[id number] -[id number] for patient ytymPXYYXRJXGZKYXD9541-46-00H13:45:39 [facility] 2022-07-04 16:58:00 [id number]/cy/ZSe+y JDJUVZGptWAJm1EMg1mRlKLU5y5yeYKv2Bkyy01 25-07-01T16:58:00 [facility] ([facility])EMERGENCY PROVIDER REPORTREPORT#:[id number] REPORT STATUS: SignedDATE:07/04/22 TIME:1658 PATIENT: MEE POMPA UNIT #: [id number]#: [id number] ROOM/BED:: 02 AGE: 22 SEX: F PCP [...] 118/82 07/04 1643 B/P Mean 94 07/04 1643 O2 Delivery Room air 07/04 1643 Temp 98.1 07/04 1643 Pulse 99 07/04 1643 Resp 18 07/04 1643 Last Documented: Result Date Time Pulse Ox 100 07/04 1643 B/P 118/82 07/04 1643 B/P Mean 94 07/04 1643 O2 Delivery Room air 07/04 1643 Temp 98.1 07/04 1643 Pulse 99 07/04 1643 Resp 18 07/04 1643 Review of Vital Signs Reviewed Physical ExamGeneral/Const [...] Pulse Ox 100 07/04 1643 B/P 118/82 / 1643 B/P Mean 94 / 1643 O2 Delivery Room air 07/04 1643 Temp 98.1 07/04 1643 Pulse 99 /02 1643 Resp 18 07/04 1643 Last Documented: Result Date Time Pulse Ox 100 01/ 1643 B/P 118/82 / 1643 B/P Mean 94 /02 1643 O2 Delivery Room air 07/04 1643 Temp 98.1 07/04 1643 Pulse 99 /02 1643 Resp 18 07/04 1643 All vital signs available at the time of this entry have been reviewed. Clinical ImpressionClinical ImpressionPrimary Impression: Drug abuse Disposition DecisionDischarge )( Discharged to Home Yes )( Time 1658 )( Date 07/04/22 Discharge/Care PlanCounseled Regarding Diagnosis, Need for follow-up, When to return to EDPatient Instructions ED Drug AbuseAdditional InstructionsFollow-up with drug rehabilitation facilities listed on packet provided at 2206 RPT #: [id number] OF REPORTEDEmercarroll regional medical center department hxchid8162-32-46J05:58:00L.[id number] -0199AVAvailable for patient ueicKNCZIGSOANMTEK5394-17-71N00:06:49 [facility]"
[2023-09-25 12:11] LABS: ALT/SGPT 19 U/L (13-56); AST/SGOT 12 U/L (15-37); Albumin 4.1 g/dL (3.4-5.0); Albumin/Globulin Ratio 1.2 (1.1-1.8); Alkaline Phosphatase 100 U/L (45-117); Anion Gap 5.7 mEq/L (5.0-15.0); BUN Blood Urea Nitrogen 9 mg/dL (7-18); Bicarbonate 28 mEq/L (21-32); Bilirubin Direct 0.1 mg/dL (0-0.2); Bilirubin Indirect, Calculated 0.3 mg/dL (0.2-0.8); Bilirubin Total 0.4 mg/dL (0.2-1.0); Globulin 3.4 g/dL (2.3-3.5); Glomerular Filtration Rate 104 ml/min (=/>90); Glucose Level 96 mg/dL (74-106); Potassium 3.7 mEq/L (3.5-5.1); Protein, Total 7.5 g/dL (6.4-8.2); Sodium Level 140 mEq/L (136-145)
--- NOTE | 2023-09-25 12:35 | ER ---
Nurse's Notes [facility] Name: Vanda Pompa Age: 23 yrs Sex: Female : 2000 Arrival Date: 09/25/2023 Time: 10:59 Bed 18 Private MD: Diagnosis: Acute stress reaction Presentation: 09/24 10:55 Chief complaint: EMS states: PATIENT STAYING WITH MOM AND IS NOT GETTING ALONG HAVING db THOUGHTS OF WANTING TO HURT SELF. DENIES HAVING A PLAN. STATES WANTS TO GO TO [facility] FOR HELP. Coronavirus screen: Client denies travel out of the [place] in the last 14 days. At this time, the client does not indicate any symptoms associated with coronavirus-19. Ebola Screen: Patient negative for fever greater than or equal to 101.5 degrees Fahrenheit, and additional compatible Ebola Virus Disease symptoms Patient denies exposure to infectious person. Patient denies travel to an Ebola-affected area in the 21 days before illness onset. No symptoms or risks identified at this time. Initial Sepsis Screen: Does the patient meet any 2 criteria? No. Patient's initial sepsis screen is negative. Does the patient have a suspected source of infection? No. Patient's initial sepsis screen is negative. Risk Assessment: Do you want to hurt yourself or someone else? Patient reports no desire to harm self or others. Onset of symptoms was September 25, 2023. 10:55 Method Of Arrival: EMS: [facility] db 10:55 Acuity: FREDY 2 db Triage Assessment: 11:12 General: Appears in no apparent distress. comfortable, Behavior is cooperative, db anxious. Pain: Denies pain. Neuro: Level of Consciousness is awake, alert, obeys commands, Oriented to person, place, time, situation. Respiratory: Airway is patent Respiratory effort is even, unlabored, Respiratory pattern is regular, symmetrical. 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 - Social history:: Smoking status: . Screenin:30 [facility] ED Fall Risk Assessment (Adult) History of falling in the last 3 months, db including since admission No falls in past 3 months (0 pts) Confusion or Disorientation No (0 pts) Intoxicated or Sedated No (0 pts) Impaired Gait No (0 pts) Mobility Assist Device Used No (0 pt) Altered Elimination No (0 pt) Score/Fall Risk Level 0 - 2 = Low Risk Oriented to surroundings, Maintained a safe environment. Abuse screen: Denies threats or abuse. Denies injuries from another. Nutritional screening: No deficits noted. Tuberculosis screening: No symptoms or risk factors identified. Assessment: 11:30 Reassessment: Patient appears in no apparent distress at this time. Patient and/or db family updated on plan of care and expected duration. Pain level reassessed. Patient is alert, oriented x 3, equal unlabored respirations, skin warm/dry/pink. 12:21 Reassessment: Patient appears in no apparent distress at this time. Patient and/or db family updated on plan of care and expected duration. Pain level reassessed. Patient is alert, oriented x 3, equal unlabored respirations, skin warm/dry/pink. PATIENT AMBULATORY TO RESTROOM. 12:30 Reassessment: Patient appears in no apparent distress at this time. Patient and/or db family updated on plan of care and expected duration. Pain level reassessed. Patient is alert, oriented x 3, equal unlabored respirations, skin warm/dry/pink. Patient states feeling better. Patient states symptoms have improved. General: Appears in no apparent distress. comfortable, Behavior is calm, cooperative. Pain: Denies pain. Neuro: Level of Consciousness is awake, alert, obeys commands, Oriented to person, place, time, situation. Respiratory: Airway is patent Respiratory effort is even, unlabored, Respiratory pattern is regular, symmetrical. 12:36 Reassessment: Patient appears in no apparent distress at this time. Patient and/or db family updated on plan of care and expected duration. Pain level reassessed. Patient is alert, oriented x 3, equal unlabored respirations, skin warm/dry/pink. 12:41 Reassessment: PATIENT REQUESTS TO BE DISCHARGED. NOTIFIED JOHN MORILLO. db 12:49 Reassessment: SAFETY PLAN COMPLETED AND SIGNED. COPY GIVEN TO PATIENT. db Psych: 10:55 [place] Suicide Severity Screening: In the past month, have you wished you were db or wished you could go to sleep and not wake up? Patient responds "No." "In the past month, have you actually had any thoughts of killing yourself?" Patient responds "no." "In your lifetime, have you ever done anything, started to do anything, or prepared to do anything to end your life?" Patient responds "yes." Patient reports suicidal intent occurred greater than 3 months prior. Subjective: Patient's mood is elevated, Delusions are denied, Hallucinations are denied. Objective: Patient is cooperative, Speech is normal, Affect is appropriate. Interventions: Removed personal items and placed in bag. Patient placed in hospital gown. Searched person for dangerous items. Safety Checks: Personal items have been removed. Door is open. No visitors are present at this time. Pt denies substance abuse. Commitment: Patient will be a voluntary commitment. Vital Signs: 10:55 BP 113 / 73; Pulse 86; Resp 16; Temp 98.1(O); Pulse Ox 100% ; Weight 56.7 kg; Height 5 db ft. 3 in. ; 12:45 BP 113 / 72; Pulse 86; Resp 16; Temp 98; Pulse Ox 99% ; db 10:55 Body Mass Index 22.14 (56.70 kg, 160.02 cm) db Sher Coma Score: 12:30 Eye Response: spontaneous(4). Motor Response: obeys commands(6). Verbal Response: db oriented(5). Total: 15. ED Course: 10:55 Arm band placed on Patient placed in an exam room. db 11:00 Patient arrived in ED. kb 11:00 [facility] Thomason [facility]-C [facility] kb 11:00 Aston López DO is Attending Physician. kb 11:09 April Stokes, OLGA is Primary Nurse. db 11:12 Triage completed. db 11:34 Acetaminophen Sent. bc6 11:34 Basic Metabolic Panel Sent. bc6 11:34 CBC with Diff Sent. bc6 11:34 ETOH Level Sent. bc6 11:34 Hepatic Function Sent. bc6 11:34 PT-INR Sent. bc6 11:34 Ptt, Activated Sent. bc6 11:34 Salicylate Sent. bc6 11:34 Initial lab(s) drawn, by me, sent to lab. Inserted saline lock: 22 gauge in right bc6 antecubital area, using aseptic technique. Blood collected. 12:30 Safety Checks: Personal items have been removed. The door is open or patient has been db placed in a hallway bed/chair. There are no family/friend visitors at this time Sitter present at this time. 12:30 Patient has correct armband on for positive identification. Bed in low position. Call db light in reach. Side rails up X 1. Valuables TAKEN FROM PATIENT. Provided Education on: SAFETY PLAN. Warm blanket given. Patient is placed in psych hold. 12:30 IV discontinued, intact, bleeding controlled, No redness/swelling at site. db 12:33 Urine collected: clean catch specimen, clear. db 12:50 No provider procedures requiring assistance completed. db Administered Medications: No medications were administered Medication: 12:30 VIS not applicable for this client. db Outcome: 12:34 ER care complete, transfer ordered by MD. kb 12:41 Discharge ordered by MD. kb 12:58 Discharged to home ambulatory, with family, db 12:58 Condition: stable 12:58 Discharge instructions given to patient, Instructed on discharge instructions, follow up and referral plans. 13:08 Patient left the ED. db Signatures: Trudi Thomason, MACHINE FILLER SERVICER-C MACHINE FILLER SERVICER-April Vargas RN RN db [facility] Corrections: (The following items were deleted from the chart) 12:58 10:55 [place] Suicide Severity Screening: In the past month, have you wished you were db or wished you could go to sleep and not wake up? Patient responds "yes." Based off the client's responses additional C-SSRS screening is required. "In the past month, have you actually had any thoughts of killing yourself?" Patient responds "yes." Based off the client's response additional [place] suicide severity screening questions to be further documented on paper forms. "In your lifetime, have you ever done anything, started to do anything, or prepared to do anything to end your life?" Patient responds "yes." Patient reports suicidal intent within 3 past months. db 12:58 10:55 Interventions: Removed personal items and placed in bag. Patient placed in db hospital gown. Searched person for dangerous items. db
--- NOTE | 2023-09-25 12:35 | EDPHYS ---
Physician Documentation [facility] Name: Vanda Pompa Age: 23 yrs Sex: Female : 2000 Arrival Date: 09/25/2023 Time: 10:59 Bed 18 Private MD: ED Physician Aston López HPI: 09/24 12:17 This 23 yrs old Female presents to ER via EMS with complaints of Psych Problem. kb 12:17 Pt is a 23 year old female who presents for suicidal ideations. States she does not kb have a plan at this time, but has attempted multiple times in the past and believes she needs to be sent to [facility] before she develops a plan. . 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 - Social history:: Smoking status: . ROS: 12:17 Constitutional: As per HPI kb Exam: 12:17 Constitutional: This is a well developed, well nourished patient who is awake, alert, kb and in no acute distress. Head/Face: Normocephalic, atraumatic. ENT: Moist Mucous membranes Cardiovascular: Regular rate Respiratory: Respirations even and unlabored. No increased work of breathing. Talking in full sentences Abdomen/GI: Soft, non-tender. No distention Skin: Warm, dry with normal turgor. Normal color. MS/ Extremity: Pulses equal, no cyanosis. Neurovascular intact. Full, normal range of motion. Neuro: Awake and alert, GCS 15, oriented to person, place, time, and situation. Moves all extremities. Normal gait. 12:17 Psych: Behavior/mood is cooperative, Affect is calm, Oriented to person, place, time, Patient having thoughts of suicide. Denies suicidal plan. Vital Signs: 10:55 BP 113 / 73; Pulse 86; Resp 16; Temp 98.1(O); Pulse Ox 100% ; Weight 56.7 kg; Height 5 db ft. 3 in. ; 12:45 BP 113 / 72; Pulse 86; Resp 16; Temp 98; Pulse Ox 99% ; db 10:55 Body Mass Index 22.14 (56.70 kg, 160.02 cm) db Mcandrews Coma Score: 12:30 Eye Response: spontaneous(4). Motor Response: obeys commands(6). Verbal Response: db oriented(5). Total: 15. MDM: 11:00 Patient medically screened. kb 12:18 Differential diagnosis: depression, suicidal ideations, acute stress reaction. Data kb reviewed: vital signs, nurses notes. Consideration of Admission/Observation Escalation of care including admission/observation considered. pt will be transferred to inpatient psychiatric facility. Historians other than the Patient: EMS: [facility]. 12:39 Counseling: I had a detailed discussion with the patient and/or guardian regarding the kb historical points, exam findings, and any diagnostic results supporting the discharge/admit diagnosis, lab results, the need for outpatient follow up. ED course: Pt states she isn't really suicidal. States she was having issues with her mother, but they spoke and worked it out so she would like to leave. Denies suicidal ideations. States she just wanted it documented that her mother causes her to have suicidal thoughts. . 09/24 11:00 Order name: Acetaminophen; Complete Time: 12:13 kb 09/24 11:00 Order name: Basic Metabolic Panel; Complete Time: 12:13 kb 09/24 11:00 Order name: CBC with Diff; Complete Time: 11:55 kb 09/24 11:00 Order name: ETOH Level; Complete Time: 12:01 kb 09/24 11:00 Order name: Hepatic Function; Complete Time: 12:13 kb 09/24 11:00 Order name: PT-INR; Complete Time: 11:47 kb 09/24 11:00 Order name: Test, Urine kb 09/24 11:00 Order name: Ptt, Activated; Complete Time: 11:47 kb 09/24 11:00 Order name: Salicylate; Complete Time: 12:11 kb 09/24 11:00 Order name: Urinalysis w/ reflexes; Complete Time: 12:49 kb 09/24 11:00 Order name: Urine Drug Screen; Complete Time: 12:41 kb 09/24 11:00 Order name: EKG; Complete Time: 11:01 kb 09/24 11:00 Order name: EKG - Nurse/Tech; Complete Time: 12:08 kb 09/24 11:00 Order name: IV Saline Lock; Complete Time: 11:34 kb 09/24 11:00 Order name: Labs collected and sent; Complete Time: 11:34 kb 09/24 11:00 Order name: Suicide Precautions; Complete Time: 11:59 kb 09/24 11:00 Order name: Suicide Screening ([place]); Complete Time: 11:59 kb Administered Medications: No medications were administered Disposition: 17:12 I was immediately available on-site in the Emergency Department for consultation in the ms3 care of the patient. Disposition Summary: 09/25/23 12:41 Discharge Ordered Notes: Location: Home kb Condition: Stable(09/25/23 12:41) kb Diagnosis - Acute stress reaction kb Followup: kb - With: Emergency Department - When: As needed - Reason: Worsening of condition Followup: kb - With: Private Physician - When: 2 - 3 days - Reason: Recheck today's complaints, Continuance of care, Re-evaluation by your physician Discharge Instructions: - Discharge Summary Sheet kb - Suicidal Feelings: How to Help Yourself kb Forms: - Medication Reconciliation Form kb - Thank You Letter kb - Antibiotic Education kb - Prescription Opioid Use kb - Patient Portal Instructions kb - Leadership Thank You Letter kb Signatures: Dispatcher [employer] EDTrudi Galindo, NIYAH-C EXHAUST EMISSIONS INSPECTOR-Aston Cárdenas DO DO ms3 April Stokes, RN RN db Corrections: (The following items were deleted from the chart) 12:40 12:18 Counseling: I had a detailed discussion with the patient and/or guardian kb regarding the historical points, exam findings, and any diagnostic results supporting the discharge/admit diagnosis, lab results, the need to transfer to another facility, [facility] does not immediately have the required specialist, kb 12:40 12:34 Dr kb kb 12:40 12:34 Psych Facility kb kb 12:40 12:34 Higher level of care kb kb 12:40 12:34 Stable kb kb 12:40 12:34 new kb kb 12:40 12:34 are unchanged kb kb 12:40 12:34 Suicidal ideations kb kb
[2023-09-25 12:41] LABS: Barbiturates NEGATIVE (NEGATIVE); Benzodiazepines NEGATIVE (NEGATIVE); Cocaine NEGATIVE (NEGATIVE); METHAMPHETAM NEGATIVE (NEGATIVE); Methadone NEGATIVE (NEGATIVE); Opiates NEGATIVE (NEGATIVE); Phencyclidine NEGATIVE (NEGATIVE); THC Cannibis NEGATIVE (NEGATIVE)
[2023-09-25 12:48] LABS: Specific Gravity 1.014 (1.005-1.030); Sqamous Epithelial <5 /HPF (None Seen); Urine Bacteria <20 /HPF (<20); Urine Bilirubin NEGATIVE (Negative); Urine Blood Negative (Negative); Urine Clarity Extremely Turbid (Clear); Urine Color Light-Yellow (Yellow); Urine Culture Reflex Order NOT NEEDED; Urine Glucose NEGATIVE (Negative); Urine Ketones NEGATIVE (Negative); Urine Microscopic Reflex YN ORDER UMIC; Urine Mucus Slight /HPF (None Seen); Urine Nitrite NEGATIVE (Negative); Urine Protein NEGATIVE (Negative); Urine RBC <5 /HPF (None Seen); Urine Urobilinogen Normal (Normal); Urine WBC <5 /HPF (<5)
[2023-09-25 13:07] LABS: Specific Gravity 1.014 (1.005-1.030)
[2023-09-25 14:25] VITALS: BP 113/72; TEMP 98; O2SAT 99
--- NOTE | 2023-09-26 17:05 | EKG ---
Test Date: 2023-09-25 Test Time: 10:59:14 Communications Coordinator: KAELA MEASUREMENT RESULTS: Intervals: Rate: 71 [place]: 106 QRSD: 80 QT: 386 QTc: 419 [place]: P: 45 [place]: 106 QRS: 127 T: 52 INTERPRETIVE STATEMENTS: Sinus rhythm with sinus arrhythmia with short [place] Otherwise normal ECG Compared to ECG 07/04/2022 02:19:01 Right-axis deviation no longer present Electronically Signed On 09-26-23 17:01:29 CDT by Maximo Hunter
== END ==
LOC: ER 10:59
DX: F43.0 Acute stress reaction (principal); F31.9 Bipolar disorder, unspecified
CPT/HCPCS: 36415; 80048; 80076; 80143; 80179; 80307; 81001; 81025; 82077; 85025; 85610; 85730; 93005; 99285

== ENCOUNTER 2023-12-18 22:47 | Emergency (ER) | payer OTHER, SELFPAY ==
[2023-12-19 00:31] LABS: Absolute Basophils 0.1 K/uL (0-0.5); Absolute Eosinophils 0.1 K/uL (0-0.5); Absolute Lymphocytes (CBC) 2.8 K/uL (0.7-4.9); Absolute Monocytes 0.4 K/uL (0.1-1.3); Absolute Neutrophil 4.2 K/uL (1.8-8.0); Basophils % 0.7 % (0-1.3); Eosinophils % 1.2 % (0-4.4); Hemoglobin 14.4 g/dL (12.0-15.0); Lymphocytes % 37.1 % (15.3-44.8); MCHC 33.6 g/dL (32.0-36.0); MCV 86.5 fL (80-100); Monocytes % 4.9 % (3.3-12.3); Neutrophils % 56.1 % (41.7-73.7); Platelets 361 thou/uL (152-406); RBC Red Blood Cell Count 4.97 M/uL (3.86-4.86); Red Cell Distribution Width 12.6 % (12.1-15.2)
[2023-12-19 00:51] LABS: ALT/SGPT 24 U/L (13-56); Albumin/Globulin Ratio 1.2 (1.1-1.8); Alkaline Phosphatase 102 U/L (45-117); BUN Blood Urea Nitrogen 14 mg/dL (7-18); Bicarbonate 28 mEq/L (21-32); Bilirubin Total 0.3 mg/dL (0.2-1.0); Globulin 3.3 g/dL (2.3-3.5); Glomerular Filtration Rate 111 ml/min (=/>90); Glucose Level 91 mg/dL (74-106); Protein, Total 7.3 g/dL (6.4-8.2); Sodium Level 141 mEq/L (136-145)
[2023-12-19 01:16] LABS: AST/SGOT < 10 U/L (15-37); C-Reactive Protein < 2.90 mg/L (<3.00)
[2023-12-19] MEDS ORDERED: NA CHLORIDE 0.9% 1,000 ML ONE (03:18)
[2023-12-19] MEDS ORDERED: DIPHENHYDRAMINE 50 MG/ML VIAL ONE (03:18)
[2023-12-19] MEDS ORDERED: PROPRANOLOL HCL 40 MG TAB ONE (03:18)
[2023-12-19] MEDS ORDERED: METOCLOPRAMIDE 10 MG/2mL INJ ONE (03:18)
[2023-12-19] MEDS ORDERED: HYDROCORTISONE SUC 100 MG INJ ONE (03:18)
[2023-12-19] MEDS ORDERED: KETOROLAC 30 MG/ML INJ ONE (03:18)
[2023-12-19 06:54] LABS: Barbiturates NEGATIVE (NEGATIVE); Benzodiazepines NEGATIVE (NEGATIVE); Cocaine NEGATIVE (NEGATIVE); METHAMPHETAM NEGATIVE (NEGATIVE); Methadone NEGATIVE (NEGATIVE); Opiates NEGATIVE (NEGATIVE); Phencyclidine NEGATIVE (NEGATIVE); THC Cannibis NEGATIVE (NEGATIVE)
[2023-12-19 06:55] LABS: Specific Gravity > 1.030 (1.005-1.030)
--- NOTE | 2023-12-19 07:09 | ER ---
Nurse's Notes [facility] Name: Vanda Pompa Age: 23 yrs Sex: Female : 2000 Arrival Date: 12/18/2023 Time: 22:47 Bed 16 Private MD: Diagnosis: Palpitations;Episodic tension-type headache Presentation: 12/17 23:39 Chief complaint: EMS states: called out for headache and heart palpitations. pt as6 recently was dx with hyperthyroid last week and has been having these symptoms for a while. Coronavirus screen: At this time, the client does not indicate any symptoms associated with coronavirus-19. Ebola Screen: No symptoms or risks identified at this time. Initial Sepsis Screen: Does the patient meet any 2 criteria? No. Patient's initial sepsis screen is negative. Does the patient have a suspected source of infection? No. Patient's initial sepsis screen is negative. Risk Assessment: Do you want to hurt yourself or someone else? Patient reports no desire to harm self or others. Onset of symptoms is unknown. 23:39 Acuity: FREDY 3 as6 23:39 Method Of Arrival: EMS: [facility] as6 Triage Assessment: 12/18 03:47 Headache History: The patient has had previous headaches and this one is similar to pc2 previous episodes. 03:47 Pain: Pain currently is 9 out of 10 on a pain scale. Pain began gradually, Also pc2 complains of no other associated symptoms. 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 - Infectious Disease History:: Denies. - Social history:: Smoking status: Reported history of juuling and/or vaping. - Family history:: not pertinent. Screenin/18 03:41 [facility] ED Fall Risk Assessment (Adult) History of falling in the last 3 months, pc2 including since admission No falls in past 3 months (0 pts). Abuse screen: Denies threats or abuse. Nutritional screening: No deficits noted. Tuberculosis screening: No symptoms or risk factors identified. Assessment: 03:21 General: Appears in no apparent distress. comfortable, Behavior is calm, cooperative. pc2 Pain: Complains of pain in head. Neuro: Level of Consciousness is awake, alert, obeys commands, Oriented to person, place, time, situation. Cardiovascular: Capillary refill Patient's skin is warm and dry. Respiratory: Airway is patent Respiratory effort is even, unlabored, Respiratory pattern is regular, symmetrical. GI: No signs and/or symptoms were reported involving the gastrointestinal system. : EENT: No signs and/or symptoms were reported regarding the EENT system. Musculoskeletal: No signs and/or symptoms reported regarding the musculoskeletal system. 04:22 Reassessment: Patient and/or family updated on plan of care and expected duration. Pain pc2 level reassessed. Patient is alert, oriented x 3, equal unlabored respirations, skin warm/dry/pink. 05:22 Reassessment: Patient and/or family updated on plan of care and expected duration. Pain pc2 level reassessed. Patient states feeling better. Patient states symptoms have improved. Pain: Pain currently is 3 out of 10 on a pain scale. Respiratory: Airway is patent Respiratory effort is even, unlabored, Respiratory pattern is regular, symmetrical. 06:40 Reassessment: Patient and/or family updated on plan of care and expected duration. Pain pc2 level reassessed. Patient states feeling better. Patient states symptoms have improved. Pt ambulating to restroom with steady gait. Denies any needs at this time. Urine sample collected and sent to the lab. VS updated and stable.. 07:10 Reassessment: Patient and/or family updated on plan of care and expected duration. Pain rs5 level reassessed. Patient is alert, oriented x 3, equal unlabored respirations, skin warm/dry/pink. Cardiovascular: Denies chest pain, palpitations, Patient's skin is warm and dry. Rhythm is regular. Vital Signs: 12/17 23:37 BP 101 / 80; Pulse 65; Resp 18 S; Temp 98.3(O); Pulse Ox 99% on R/A; Weight 54.43 kg; as6 Height 5 ft. 3 in. ; Pain 0/10; 12/18 03:48 BP 115 / 69; Pulse 66; Resp 18; Pulse Ox 100% on R/A; pc2 05:21 BP 93 / 53; Pulse 64; Resp 16; Pulse Ox 98% on R/A; pc2 06:39 BP 96 / 59; Pulse 70; Resp 18; Pulse Ox 99% on R/A; Pain 2/10; pc2 07:15 BP 107 / 64; Pulse 73; Resp 17; Pulse Ox 99% on R/A; rs5 12/17 23:37 Body Mass Index 21.26 (54.43 kg, 160.02 cm) as6 12/17 23:37 Pain Scale: Adult as6 06:39 Pain Scale: Adult pc2 [place] Coma Score: 07:04 Eye Response: spontaneous(4). Motor Response: obeys commands(6). Verbal Response: sp4 oriented(5). Total: 15. 07:05 Eye Response: spontaneous(4). Motor Response: obeys commands(6). Verbal Response: sp4 oriented(5). Total: 15. ED Course: 12/17 22:52 Patient arrived in ED. gm2 22:59 Mejia Green MD is Attending Physician. sp4 23:37 Arm band placed on. as6 23:40 Triage completed. as6 12/18 00:40 Inserted saline lock: 20 gauge in right antecubital area, using aseptic technique. rc3 Blood collected. 00:40 T4 Free Sent. rc3 00:40 TSH Sent. rc3 00:40 CRP Sent. rc3 00:41 CMP Sent. rc3 01:52 Opal Scruggs, RN is Primary Nurse. kd3 03:48 Call light in reach. Side rails up X 1. Provided Education on: POC and timeframe. pc2 Client placed on continuous cardiac and pulse oximetry monitoring. NIBP monitoring applied. Pulse ox on. NIBP on. 03:54 CT Soft Tissue Neck W/contr In Process Unspecified. EDMS 06:37 Test, Urine Sent. pc2 06:37 Urine Drug Screen Sent. pc2 07:07 Panda Bill DO is Referral Physician. sp4 07:15 No provider procedures requiring assistance completed. IV discontinued, intact, rs5 bleeding controlled, No redness/swelling at site. Pressure dressing applied. Administered Medications: 03:31 Drug: Solu-CORTEF IVP 100 mg IVP once Route: IVP; Site: right antecubital; pc2 04:00 Follow up: Response: No adverse reaction; Marked relief of symptoms pc2 03:32 Drug: NS 0.9% IV 1000 ml IV at 1 bolus Per protocol; 1000 mL bolus Route: IV; Rate: 1 pc2 bolus; Site: right antecubital; 04:30 Follow up: Response: No adverse reaction; Marked relief of symptoms; IV Status: pc2 Completed infusion; IV Intake: 1000ml 03:34 Drug: Ketorolac IVP 30 mg IVP once Route: IVP; Site: right antecubital; pc2 04:00 Follow up: Response: No adverse reaction; Marked relief of symptoms pc2 03:35 Drug: diphenhydrAMINE IVP 25 mg IVP once Route: IVP; Site: right antecubital; pc2 04:00 Follow up: Response: No adverse reaction; Marked relief of symptoms pc2 03:36 Drug: metoCLOPramide IVP 10 mg IVP once; over 1 to 2 minutes Route: IVP; Site: right pc2 antecubital; 04:00 Follow up: Response: No adverse reaction; Marked relief of symptoms pc2 04:15 Not Given ( cancelledd): [id number] mg PO once pc2 Medication: 05:21 VIS not applicable for this client. pc2 Intake: 04:30 IV: 1000ml; Total: 1000ml. pc2 Outcome: 07:08 Discharge ordered by . cate 07:15 Discharged to home ambulatory, rs5 07:15 Condition: stable 07:15 Discharge instructions given to patient, family, Instructed on discharge instructions, follow up and referral plans. Demonstrated understanding of instructions, follow-up care, 07:18 Patient left the ED. rs5 Signatures: Dispatcher [employer] EDCyrus Rouse RN RN [email or web address] Opal Scruggs RN RN [email or web address] Agapito Castrejon RN RN rs5 Mejia Green MD MD sp4 Mitchell, Ginger gm2 Cosme, Rebecca rc3 coleman, Pam, RN RN pc2
--- NOTE | 2023-12-19 07:09 | EDPHYS ---
Physician Documentation [facility] Name: Vanda Pompa Age: 23 yrs Sex: Female : 2000 Arrival Date: 12/18/2023 Time: 22:47 Bed 16 Private MD: ED Physician Mejia Green HPI: 12/17 22:59 This 23 yrs old Black Female presents to ER via Unassigned with complaints of Headache, sp4 Palpitations. 12/18 07:05 23-year-old female presents with complaint of headache and palpitations. Patient sp4 reports history all prior diagnosis of hyperthyroidism. Patient states she is not on any medications right now . 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 - Infectious Disease History:: Denies. - Social history:: Smoking status: Reported history of juuling and/or vaping. - Family history:: not pertinent. ROS: 12/18 07:05 Constitutional: Negative for fever, chills, and weight loss, positive headache, sp4 positive palpitations, positive feeling unwell All other systems are negative, Exam: 07:05 Constitutional: This is a well developed, well nourished patient who is awake, alert, sp4 and in no acute distress. Head/Face: Normocephalic, atraumatic. Eyes: Pupils equal round and reactive to light, extra-ocular motions intact. Lids and lashes normal. Conjunctiva and sclera are not injected. Cornea within normal limits. Periorbital areas with no swelling, redness, or edema. ENT: Nares patent. No nasal discharge, no septal abnormalities noted. Tympanic membranes are normal and external auditory canals are clear. Oropharynx with no redness, swelling, or masses, exudates, or evidence of obstruction, uvula midline. Mucous membranes moist. Neck: Trachea midline, no thyromegaly or masses palpated, and no cervical lymphadenopathy. Supple, full range of motion without nuchal rigidity, or vertebral point tenderness. Chest/axilla: Normal chest wall appearance and motion. Nontender with no deformity. No lesions are appreciated. Cardiovascular: Regular rate and rhythm with a normal S1 and S2. No gallops, murmurs, or rubs. Normal PMI, no JVD. No pulse deficits. Respiratory: Lungs have equal breath sounds bilaterally, clear to auscultation and percussion. No rales, rhonchi or wheezes noted. No increased work of breathing, no retractions or nasal flaring. Abdomen/GI: Soft, with normal bowel sounds. No distension or tympany. No guarding or rebound. No evidence of tenderness throughout. Back: No spinal tenderness. No costovertebral tenderness. Skin: Warm, dry with normal turgor. Normal color with no rashes, no lesions, and no evidence of cellulitis. MS/ Extremity: Pulses equal, no cyanosis. Neurovascular intact. Full, normal range of motion. Neuro: Awake and alert, GCS 15, oriented to person, place, time, and situation. Cranial nerves II-XII grossly intact. Motor strength 5/5 in all extremities. Sensory grossly intact. Psych: Awake, alert, with orientation to person, place and time. Behavior, mood, and affect are within normal limits Vital Signs: 12/17 23:37 BP 101 / 80; Pulse 65; Resp 18 S; Temp 98.3(O); Pulse Ox 99% on R/A; Weight 54.43 kg; as6 Height 5 ft. 3 in. ; Pain 0/10; 12/18 03:48 BP 115 / 69; Pulse 66; Resp 18; Pulse Ox 100% on R/A; pc2 05:21 BP 93 / 53; Pulse 64; Resp 16; Pulse Ox 98% on R/A; pc2 06:39 BP 96 / 59; Pulse 70; Resp 18; Pulse Ox 99% on R/A; Pain 2/10; pc2 12/17 23:37 Body Mass Index 21.26 (54.43 kg, 160.02 cm) as6 17 23:37 Pain Scale: Adult as6 06:39 Pain Scale: Adult pc2 Sher Coma Score: 07:04 Eye Response: spontaneous(4). Motor Response: obeys commands(6). Verbal Response: sp4 oriented(5). Total: 15. 07:05 Eye Response: spontaneous(4). Motor Response: obeys commands(6). Verbal Response: sp4 oriented(5). Total: 15. MDM: 12/17 23:00 Patient medically screened. sp4 12/18 06:58 ED course: EXAM: CT neck with intravenous contrast CLINICAL DATA: 23 years Female neck sp4 mass. TECHNICAL DATA: Axial CT imaging of the soft tissues of the neck were performed following the administration of intravenous contrast. followed by sagittal and coronal reconstructed images. The CT study is performed according to ALARA (as low as reasonably achievable) or ALARA/IMAGE GENTLY, with automatic adjustment of mA and/or kV according to patient size. Performed on: 12/19/2023 at 3:47 AM Comparisons: CT neck with contrast performed on 07/11/2023. FINDINGS: The visualized portions of the brain and orbits are normal. The oral cavity, oropharynx and nasopharynx are normal. Some portions of the oral cavity and oropharynx are obscured by streak artifact related to the patient's dental hardware. The parapharyngeal fat planes are preserved. The hypopharynx is unremarkable. The epiglottis and aryepiglottic folds are normal. The vallecula and pyriform sinuses are grossly normal. The preepiglottic fat is preserved. The thyroid, cricoid and arytenoid cartilages are normal. The region of the false and true vocal cords is normal as is the anterior commissure. The parotid and submandibular glands are grossly within normal limits. No intrinsic mass lesions are seen. . The carotid sheaths are normal bilaterally. The paranasal sinuses and mastoid air cells are clear. 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 No definite pathologically enlarged lymph nodes are identified The thyroid gland is normal in size and configuration. The thoracic inlet is normal. The superior mediastinum and lung apices are normal. Again demonstrated is an azygos fissure, a normal variant. No acute osseous abnormalities are identified. No focal soft tissue abnormalities are seen. No focal soft tissue mass lesion or fluid collection is identified. IMPRESSION: 1. No evidence of acute abnormality involving the soft tissues of the neck. 2. No focal soft tissue mass lesion or fluid collection is identified. 3. 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 Electronically signed by: Suzy Pete DO 12/19/2023 . 07:04 Differential diagnosis: cluster headache, hypoglycemia, hyponatremia, migraine, sp4 sinusitis, vasomotor headache. Data reviewed: vital signs, nurses notes, EMS record, old medical records, lab test result(s), EKG, radiologic studies, CT scan. ED course: TSH has mild elevation but free T4 is normal. Otherwise unremarkable workup. Patient's headache has improved. CT soft tissue neck reveals no evidence of goiter. No thyroid mass. Patient stable for discharge home. No prescription indicated at this time. . 12/17 23:00 Order name: IV Saline Lock; Complete Time: 00: 4 12/17 23:00 Order name: Labs collected and sent; Complete Time: : [facility] 12/17 23:00 Order name: EKG - Nurse/Tech; Complete Time: : [facility] 12/17 23:00 Order name: CBC with Diff; Complete Time: 02:23 [facility] 12/17 23:00 Order name: CMP; Complete Time: 02:23 [facility] 12/17 23:00 Order name: TSH; Complete Time: 02:23 [facility] 12/17 23:00 Order name: CRP; Complete Time: 02:23 [facility] 12/17 23:00 Order name: T4 Free; Complete Time: 02:23 4 12/18 02:23 Order name: CT Soft Tissue Neck W/contr [facility] 12/17 23:00 Order name: Urine Drug Screen [facility] 12/17 23:00 Order name: Test, Urine [facility] 12/18 07:00 Order name: EKG Electrocardiogram EDMS Administered Medications: 03:31 Drug: Solu-CORTEF IVP 100 mg IVP once Route: IVP; Site: right antecubital; pc2 04:00 Follow up: Response: No adverse reaction; Marked relief of symptoms pc2 03:32 Drug: NS 0.9% IV 1000 ml IV at 1 bolus Per protocol; 1000 mL bolus Route: IV; Rate: 1 pc2 bolus; Site: right antecubital; 04:30 Follow up: Response: No adverse reaction; Marked relief of symptoms; IV Status: pc2 Completed infusion; IV Intake: 1000ml 03:34 Drug: Ketorolac IVP 30 mg IVP once Route: IVP; Site: right antecubital; pc2 04:00 Follow up: Response: No adverse reaction; Marked relief of symptoms pc2 03:35 Drug: diphenhydrAMINE IVP 25 mg IVP once Route: IVP; Site: right antecubital; pc2 04:00 Follow up: Response: No adverse reaction; Marked relief of symptoms pc2 03:36 Drug: metoCLOPramide IVP 10 mg IVP once; over 1 to 2 minutes Route: IVP; Site: right pc2 antecubital; 04:00 Follow up: Response: No adverse reaction; Marked relief of symptoms pc2 04:15 Not Given (md yepez): [id number] mg PO once pc2 Disposition Summary: 12/19/23 07:08 Discharge Ordered Notes: Location: Home sp4 Problem: new sp4 Symptoms: have improved sp4 Condition: Stable sp4 Diagnosis - Palpitations sp4 - Episodic tension-type headache sp4 Followup: sp4 - With: Panda Bill DO - When: 7 - 10 days - Reason: Recheck today's complaints Forms: - Medication Reconciliation Form sp4 - Antibiotic Education sp4 - Prescription Opioid Use sp4 - Patient Portal Instructions sp4 - Leadership Thank You Letter sp4 Signatures: Dispatcher [employer] Cyrus Jackson, OLGA RN as6 Mejia Green MD MD sp4 Mally james, RN RN pc2 Corrections: (The following items were deleted from the chart) 12/17 23:00 23:00 CBC+H.LAB.BRZ ordered. EDMS EDMS 23:00 23:00 COMPREHENSIVE METABOLIC PANEL+C.LAB.BRZ ordered. EDMS EDMS 23:00 23:00 Test, Urine+UC.LAB.BRZ ordered. EDMS EDMS 23:00 23:00 URINE DRUG SCREEN+UC.LAB.BRZ ordered. EDMS EDMS 23:00 23:00 C-REACTIVE PROTEIN+C.LAB.BRZ ordered. EDMS EDMS 23:00 23:00 THYROID STIMULAT HORMONE+C.LAB.BRZ ordered. EDMS EDMS 23:00 23:00 T4 FREE+C.LAB.BRZ ordered. EDMS EDMS
[2023-12-19 07:30] VITALS: BP 96/59; TEMP 98.3; O2SAT 99
--- NOTE | 2023-12-19 10:47 | RAD REPORT ---
EXAM DESCRIPTION: CT - Soft Tissue Neck W/Contr - 12/19/2023 7:00 am ADDENDUM #1 The second paragraph in the findings section should read, "The oral cavity, oropharynx and nasopharyn x are normal. The parapharyngeal fat planes are preserved." Electronically signed by: Suzy Pete DO 12/19/2023 07:02 AM CDT RP End of Addendum EXAM DESCRIPTION: CT neck with intravenous contrast CLINICAL HISTORY: 23 years Female neck mass. TECHNIQUE: Axial CT imaging of the soft tissues of the neck were performed following the administrat ion of intravenous contrast. followed by sagittal and coronal reconstructed images. The CT study is p erformed according to ALARA (as low as reasonably achievable) or ALARA/IMAGE GENTLY, with automatic a djustment of mA and/or kV according to patient size. Performed on: 12/19/2023 at 3:47 AM COMPARISON: CT neck with contrast performed on 07/11/2023. FINDINGS: The visualized portions of the brain and orbits are normal. The oral cavity, oropharynx and nasopharynx are normal. Some portions of the oral cavity and orophary nx are obscured by streak artifact related to the patient's dental hardware. The parapharyngeal fa t planes are preserved. The hypopharynx is unremarkable. The epiglottis and aryepiglottic folds are normal. The vallecula and pyriform sinuses are grossly nor mal. The preepiglottic fat is preserved. The thyroid, cricoid and arytenoid cartilages are normal. The region of the false and true vocal cords is normal as is the anterior commissure. The parotid and submandibular glands are grossly within normal limits. No intrinsic mass lesions are seen. . The carotid sheaths are normal bilaterally. The paranasal sinuses and mastoid air cells are clear. There is mild hypoplasia of the right maxillar y sinus. No definite pathologically enlarged lymph nodes are identified The thyroid gland is normal in size and configuration. The thoracic inlet is normal. The superior mediastinum and lung apices are normal. Again demonstrated is an azygos fissure, a normal variant. No acute osseous abnormalities are identified. No focal soft tissue abnormalities are seen. No focal soft tissue mass lesion or fluid collection is identified. IMPRESSION: 1. No evidence of acute abnormality involving the soft tissues of the neck. 2. No focal soft tissue mass lesion or fluid collection is identified. 3. 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 Electronically signed by: Suzy Pete DO 12/19/2023 06:47 AM CDT RP Due to temporary technical issues with the PACS/Fluency reporting system, reports are being signed by the in house radiologists without review as a courtesy to insure prompt reporting. The interpreting radiologist is fully responsible for the content of the report.
--- NOTE | 2023-12-19 14:13 | EKG ---
Test Date: 2023-12-19 Test Time: 00:34:37 [employer]: [facility] MEASUREMENT RESULTS: Intervals: Rate: 73 GA: 136 QRSD: 76 QT: 374 QTc: 412 [place]: P: 42 GA: 136 QRS: 121 T: 62 INTERPRETIVE STATEMENTS: Normal sinus rhythm Right axis deviation Possible Right ventricular hypertrophy Abnormal ECG Compared to ECG 12/19/2023 00:31:15 Accelerated junctional rhythm no longer present ST (T wave) deviation no longer present Electronically Signed On 12-19-23 14:10:50 CDT by Maximo Hunter
--- NOTE | 2023-12-19 14:14 | EKG ---
Test Date: 2023-12-19 Test Time: 00:31:15 Cue Worker: MARTI MEASUREMENT RESULTS: Intervals: Rate: 74 GA: QRSD: 68 QT: 378 QTc: 419 [place]: P: GA: QRS: 127 T: 45 INTERPRETIVE STATEMENTS: Atrial paced rhythm Right axis deviation Possible Right ventricular hypertrophy Nonspecific ST abnormality Abnormal ECG Compared to ECG 09/25/2023 10:59:14 Right-axis deviation now present ST (T wave) deviation now present Electronically Signed On 12-19-23 14:11:14 CDT by Maximo Hunter
== END 2023-12-19 07:18 | disposition home or self-care (01) ==
LOC: ER 22:47
DX: G44.219 Episodic tension-type headache, not intractable (principal); R00.2 Palpitations
CPT/HCPCS: 36415; 70491; 80053; 80307; 81025; 84439; 84443; 85025; 86140; 93005; J1200; J1720; J2765; J7030; Q9967

== ENCOUNTER 2023-12-19 14:27 | Emergency (ER) | payer SELFPAY ==
[2023-12-19 16:00] VITALS: BP 105/74; TEMP 97.7; O2SAT 100
--- NOTE | 2023-12-19 18:10 | ER ---
Nurse's Notes [facility] Name: Vanda Pompa Age: 23 yrs Sex: Female : 2000 Arrival Date: 12/19/2023 Time: 14:27 Bed 11 Private MD: Diagnosis: Pain in throat Presentation: 12/18 14:32 Chief complaint: EMS states: called out for tiredness and sore throat. Coronavirus as6 screen: At this time, the client does not indicate any symptoms associated with coronavirus-19. Ebola Screen: No symptoms or risks identified at this time. Initial Sepsis Screen: Does the patient meet any 2 criteria? No. Patient's initial sepsis screen is negative. Does the patient have a suspected source of infection? No. Patient's initial sepsis screen is negative. Risk Assessment: Do you want to hurt yourself or someone else? Patient reports no desire to harm self or others. Onset of symptoms was December 19, 2023. 14:32 Acuity: FREDY 4 as6 14:32 Method Of Arrival: EMS: [facility] as6 Triage Assessment: 14:34 General: Appears in no apparent distress. slender, Behavior is cooperative, anxious. as6 Pain: Complains of pain in throat. EENT: Reports sore throat. 14:35 General: Reports fatigue for. 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 - Infectious Disease History:: Denies. - Social history:: Smoking status: Reported history of juuling and/or vaping. Screenin:33 [facility] ED Fall Risk Assessment (Adult) History of falling in the last 3 months, as6 including since admission No falls in past 3 months (0 pts) Confusion or Disorientation No (0 pts) Intoxicated or Sedated No (0 pts) Impaired Gait No (0 pts) Mobility Assist Device Used No (0 pt) Altered Elimination No (0 pt) Score/Fall Risk Level 0 - 2 = Low Risk Oriented to surroundings, Maintained a safe environment, Educated pt \T\ family on fall prevention, incl call for assistance when getting out of bed, Assessed \T\ reinforced patient's understanding of fall precautions. Abuse screen: Denies threats or abuse. Denies injuries from another. Nutritional screening: No deficits noted. Tuberculosis screening: No symptoms or risk factors identified. Vital Signs: 14:32 BP 105 / 74; Pulse 91; Resp 18 S; Temp 97.7(TE); Pulse Ox 100% on R/A; Pain 9/10; as6 14:33 Weight 54.43 kg; Height 5 ft. 3 in. ; as6 14:33 Body Mass Index 21.26 (54.43 kg, 160.02 cm) as6 14:32 Pain Scale: Adult as6 ED Course: 14:27 Patient arrived in ED. ll1 14:28 Trudi Thomason FNP-C [facility]. kb 14:28 Henri Moreno MD is Attending Physician. kb 14:31 Cyrus Dean, RN is Primary Nurse. as6 14:31 Arm band placed on right wrist. as6 14:33 Triage completed. as6 14:34 Bed in low position. Call light in reach. as6 14:53 Provided Education on: follow up. as6 14:53 No provider procedures requiring assistance completed. Patient did not have IV access as6 during this emergency room visit. 14:54 Diet tray given. PO fluids given. as6 Administered Medications: No medications were administered Medication: 14:34 VIS not applicable for this client. as6 Outcome: 14:46 Discharge ordered by MD. kb 14:53 Discharged to home ambulatory, as6 14:53 Condition: stable 14:53 Discharge instructions given to patient, Instructed on discharge instructions, follow up and referral plans. Demonstrated understanding of instructions, follow-up care, 14:54 Patient left the ED. as6 Signatures: Trudi Thomason FNP-C FNP-George Chambers RN RN ll1 Cyrus Dean, OLGA RN as6
--- NOTE | 2023-12-19 18:10 | EDPHYS ---
Physician Documentation [facility] Name: Vadna Pompa Age: 23 yrs Sex: Female : 2000 Arrival Date: 12/19/2023 Time: 14:27 Bed 11 Private MD: ED Physician Henri Moreno HPI: 12/18 14:47 This 23 yrs old Female presents to ER via EMS with complaints of throat pain. kb 14:47 Pt is a 23 year old female who presents for pressure in throat that started this kb morning. States she was recently diagnosed with hyperthyroidism, but has not been put on any medications. Also reports fatigue with intermittent palpitations over the last 2 weeks. States she knows that her symptoms are due to her thyroid. . 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 - Infectious Disease History:: Denies. - Social history:: Smoking status: Reported history of juuling and/or vaping. ROS: 14:47 Constitutional: As per HPI kb Exam: 14:47 Constitutional: This is a well developed, well nourished patient who is awake, alert, kb and in no acute distress. Head/Face: Normocephalic, atraumatic. ENT: Moist Mucous membranes Cardiovascular: Regular rate Respiratory: Respirations even and unlabored. No increased work of breathing. Talking in full sentences Abdomen/GI: Soft, non-tender. No distention Skin: Warm, dry with normal turgor. Normal color. MS/ Extremity: Pulses equal, no cyanosis. Neurovascular intact. Full, normal range of motion. Neuro: Awake and alert, GCS 15, oriented to person, place, time, and situation. Moves all extremities. Normal gait. Vital Signs: 14:32 BP 105 / 74; Pulse 91; Resp 18 S; Temp 97.7(TE); Pulse Ox 100% on R/A; Pain 9/10; as6 14:33 Weight 54.43 kg; Height 5 ft. 3 in. ; as6 14:33 Body Mass Index 21.26 (54.43 kg, 160.02 cm) as6 14:32 Pain Scale: Adult as6 MDM: 14:28 Patient medically screened. kb 14:49 Differential diagnosis: pharyngitis, strep, mono, thyroid dysfunction. Data reviewed: kb vital signs, nurses notes. Test considered but Not performed: EKG: EKG considered for palpitations but pt refuses. Labs: mono and strep tests considered but pt refuses, states she knows this isn't an illness because she doesn't feel sick. Historians other than the Patient: EMS: [facility]. External Records Reviewed: ER MD notes and diagnostic results reviewed. I printed last night's results and reviewed them all with pt. Pt had an elevated TSH, normal T4. CT soft tissue neck with contrast was completed and normal Educated pt on the tests and the meaning of her results. Pt states "I don't really believe these results." I informed pt she was welcome to get a second opinion. States "I can't because I don't have insurance or any money." I discussed outpatient options with pt, but she states she can't do any of those. . Care significantly affected by the following Social Determinants of Health: Poor access to healthcare and/or lack of insurance, Poor access to transportation. Counseling: I had a detailed discussion with the patient and/or guardian regarding the historical points, exam findings, and any diagnostic results supporting the discharge/admit diagnosis, the need for outpatient follow up, endocrinology, to return to the emergency department if symptoms worsen or persist or if there are any questions or concerns that arise at home. Administered Medications: No medications were administered Disposition Summary: 12/19/23 14:46 Discharge Ordered Notes: Location: Home kb Condition: Stable kb Diagnosis - Pain in throat kb Followup: kb - With: Emergency Department - When: As needed - Reason: Worsening of condition Followup: kb - With: Private Physician - When: 2 - 3 days - Reason: Recheck today's complaints, Continuance of care, Re-evaluation by your physician Discharge Instructions: - Discharge Summary Sheet kb - Sore Throat, Micd-gn-Xima kb Forms: - Medication Reconciliation Form kb - Antibiotic Education kb - Prescription Opioid Use kb - Patient Portal Instructions kb - Leadership Thank You Letter kb Signatures: Trudi Thomason FNP-C FNP-Cyrus Morelos RN RN as6 Corrections: (The following items were deleted from the chart) 14:56 14:49 External Records Reviewed: ER MD notes and diagnostic results reviewed. I printed kb last night's results and reviewed them all with pt. Pt had an elevated TSH, normal T4. Educated pt on the tests and the meaning of her results. Pt states "I don't really believe these results." I informed pt she was welcome to get a second opinion. States "I can't because I don't have insurance or any money." I discussed outpatient options with pt, but she states she can't do any of those. . kb
== END 2023-12-19 14:54 | disposition home or self-care (01) ==
LOC: ER 14:27
DX: R07.0 Pain in throat (principal)

== ENCOUNTER 2023-12-27 20:46 | Emergency (ER) | payer SELFPAY ==
[2023-12-27] MEDS ORDERED: NA CHLORIDE 0.9% 1,000 ML ONE (21:42)
[2023-12-27 21:54] LABS: Absolute Eosinophils 0.1 K/uL (0-0.5); Absolute Lymphocytes (CBC) 2.2 K/uL (0.7-4.9); Absolute Monocytes 0.5 K/uL (0.1-1.3); Absolute Neutrophil 2.7 K/uL (1.8-8.0); Basophils % 0.4 % (0-1.3); Hematocrit 46.3 % (36.0-45.0); Hemoglobin 15.7 g/dL (12.0-15.0); Lymphocytes % 40.9 % (15.3-44.8); MCH 29.1 pg (27.0-35.0); MCV 85.5 fL (80-100); MPV 8.4 fL (7.6-11.3); Monocytes % 8.8 % (3.3-12.3); Neutrophils % 48.9 % (41.7-73.7); Nucleated Red Blood Cells % 0.2 % (0-0); Platelets 356 thou/uL (152-406); RBC Red Blood Cell Count 5.41 M/uL (3.86-4.86); Red Cell Distribution Width 13.1 % (12.1-15.2)
[2023-12-27 22:12] LABS: Albumin 4.1 g/dL (3.4-5.0); Albumin/Globulin Ratio 1.1 (1.1-1.8); Anion Gap 8.4 mEq/L (5.0-15.0); Bilirubin Total 0.3 mg/dL (0.2-1.0); Globulin 3.6 g/dL (2.3-3.5); Potassium 3.4 mEq/L (3.5-5.1); Protein, Total 7.7 g/dL (6.4-8.2)
[2023-12-27 22:34] LABS: Thyroid Stimulating Hormone 15.1 uIU/mL (0.358-3.740)
--- NOTE | 2023-12-27 23:51 | EDPHYS ---
Physician Documentation [facility] Name: Vanda Pompa Age: 23 yrs Sex: Female : 2000 Arrival Date: 12/27/2023 Time: 20:46 Bed 4 Private MD: ED Physician Mee Paredes HPI: 12/27 00:19 This 23 yrs old Female presents to ER via Ambulatory with complaints of Diarrhea - kb x3wks, Decreased Appetite. 00:19 Pt is a 23 year old female who presents for diarrhea that started 3 weeks ago. States kb she has had intermittent nausea and vomiting as well. Has been to several ERs for this and nothing has been found. Reports generalized abd pain. Denies fever. Historical: - Allergies: 12/26 21:01 No Known Allergies; tl4 - Home Meds: 21:01 Abilify 15 mg Oral tablet daily [Active]; Lamictal Oral [Active]; Strattera Oral tl4 [Active]; - PMHx: 21:01 adhd; Anxiety; Asthma; Bipolar disorder; depressive disorder; Ovarian cyst; tl4 - PSHx: 21:01 ear surgery; tl4 - Immunization history:: Adult Immunizations unknown. - Infectious Disease History:: Denies. - Social history:: Smoking status: Patient denies any tobacco usage or history of. ROS: 12/27 00:17 Constitutional: As per HPI kb Exam: 00:17 Constitutional: This is a well developed, well nourished patient who is awake, alert, kb and in no acute distress. Head/Face: Normocephalic, atraumatic. ENT: Moist Mucous membranes Cardiovascular: Regular rate Respiratory: Respirations even and unlabored. No increased work of breathing. Talking in full sentences Abdomen/GI: Soft, non-tender. No distention Skin: Warm, dry with normal turgor. Normal color. MS/ Extremity: Pulses equal, no cyanosis. Neurovascular intact. Full, normal range of motion. Neuro: Awake and alert, GCS 15, oriented to person, place, time, and situation. Moves all extremities. Normal gait. Vital Signs: 12/26 20:56 BP 100 / 78; Pulse 92; Resp 16; Temp 98.3; Pulse Ox 98% on R/A; Weight 49.9 kg; Height tl4 5 ft. 3 in. ; Pain 8/10; 23:53 BP 106 / 66; Pulse 59; Resp 16; Pulse Ox 100% on R/A; jb4 20:56 Body Mass Index 19.49 (49.90 kg, 160.02 cm) tl4 20:56 Pain Scale: Adult tl4 MDM: 20:49 Patient medically screened. kb 12/27 00:17 Differential diagnosis: Nonspecific abd pain, viral gastroenteritis. Data reviewed: kb vital signs, nurses notes. Test considered but Not performed: CT: ct considered but pt had ct on 12/23/23 that showed no acute process. External Records Reviewed: Outside ED record: CT and labs from [facility] ER reviewed on pt's my chart. CT without acute findings, c.diff negative, ova and parasite negative. Counseling: I had a detailed discussion with the patient and/or guardian regarding the historical points, exam findings, and any diagnostic results supporting the discharge/admit diagnosis, lab results, the need for outpatient follow up, a family practitioner, to return to the emergency department if symptoms worsen or persist or if there are any questions or concerns that arise at home. 12/26 21:04 Order name: CBC with Diff; Complete Time: 22:06 kb 12/26 21:04 Order name: CMP; Complete Time: 22:55 kb 12/26 21:04 Order name: Lipase; Complete Time: 22:55 kb 12/26 21:04 Order name: TSH; Complete Time: 22:55 kb 12/26 22:16 Order name: Stool Culture kb 12/26 22:37 Order name: T4 Free; Complete Time: 22:55 EDMS 12/26 21:04 Order name: IV Saline Lock; Complete Time: 21:39 kb 12/26 21:04 Order name: Labs collected and sent; Complete Time: 21:39 kb Administered Medications: 12/26 21:49 Drug: NS 0.9% IV 1000 ml IV at 1 bolus Per protocol; 1000 mL bolus Route: IV; Rate: 1 jb4 bolus; Site: left antecubital; 12/27 00:00 Drug: Ondansetron IVP 4 mg IVP once; over 2 minutes Route: IVP; Site: left antecubital; jb4 00:10 Follow up: Response: Medication administered at discharge. jb4 Disposition Summary: 12/27/23 23:50 Discharge Ordered Notes: Location: Home kb Condition: Stable kb Diagnosis - Diarrhea, unspecified kb Followup: kb - With: Emergency Department - When: As needed - Reason: Worsening of condition Followup: kb - With: Private Physician - When: 2 - 3 days - Reason: Recheck today's complaints, Continuance of care, Re-evaluation by your physician Discharge Instructions: - Discharge Summary Sheet kb - Food Choices to Help Relieve Diarrhea, Adult kb - Diarrhea, Adult, [id number] kb Forms: - Medication Reconciliation Form kb - Antibiotic Education kb - Prescription Opioid Use kb - Patient Portal Instructions kb - Leadership Thank You Letter kb Prescriptions: - Zofran 4 mg Oral tablet - take 1 tablet ORAL route every 6 hours As needed; 12 tablet; Refills: 0, kb Product Selection Permitted Signatures: Dispatcher [employer] EDMS Trudi Thomason, COURT USHER-C COURT USHER-Jose Arana, RN RN jb4 Carlitos Martinez RN RN tl4 Corrections: (The following items were deleted from the chart) 12/26 21:05 21:05 CBC+H.LAB.BRZ ordered. EDNE EDMS 21:05 21:05 COMPREHENSIVE METABOLIC PANEL+C.LAB.BRZ ordered. EDNE EDMS 21:05 21:05 LIPASE+C.LAB.BRZ ordered. EDNE EDMS 21:05 21:05 Test, Urine+UC.LAB.BRZ ordered. EDMS EDMS 21:05 21:05 Urinalysis+U.LAB.BRZ ordered. EDNE EDMS 21:05 21:05 THYROID STIMULAT HORMONE+C.LAB.BRZ ordered. EDNE EDMS 22:16 22:16 Stool Culture+BA.LAB.BRZ ordered. EDNE EDNE 12/27 00:19 00:17 Historians other than the Patient: EMS: [facility]. kb kb
--- NOTE | 2023-12-27 23:51 | ER ---
Nurse's Notes [facility] Name: Vanda Pompa Age: 23 yrs Sex: Female : 2000 Arrival Date: 12/27/2023 Time: 20:46 Bed 4 Private MD: Diagnosis: Diarrhea, unspecified Presentation: 12/26 20:56 Chief complaint: Patient states: Pt c/o watery diarrhea, nausea, vomiting, abdominal tl4 pain/bloating x 3 weeks. Pt states she is losing control of her bowels. Pt states she lost 10lb in last 2 weeks. Pt states she has been evaluated without a diagnosis. Coronavirus screen: At this time, the client does not indicate any symptoms associated with coronavirus-19. Ebola Screen: No symptoms or risks identified at this time. Initial Sepsis Screen: Does the patient meet any 2 criteria? No. Patient's initial sepsis screen is negative. Does the patient have a suspected source of infection? No. Patient's initial sepsis screen is negative. Risk Assessment: Do you want to hurt yourself or someone else? Patient reports no desire to harm self or others. Onset of symptoms was December 06, 2023. 20:56 Method Of Arrival: Ambulatory tl4 20:56 Acuity: FREDY 3 tl4 Triage Assessment: 21:03 General: Appears uncomfortable, Behavior is cooperative. Pain: Complains of pain in tl4 abdomen. EENT: No signs and/or symptoms were reported regarding the EENT system. Neuro: Level of Consciousness is awake, alert, obeys commands, Oriented to person, place, time, situation, Moves all extremities. Full function Gait is steady, Speech is normal. Cardiovascular: Capillary refill < 3 seconds Patient's skin is warm and dry. Respiratory: Airway is patent Respiratory effort is even, unlabored, Respiratory pattern is regular, symmetrical. GI: Reports lower abdominal pain, diarrhea, nausea, vomiting. : No signs and/or symptoms were reported regarding the genitourinary system. Derm: No signs and/or symptoms reported regarding the dermatologic system. Musculoskeletal: No signs and/or symptoms reported regarding the musculoskeletal system. Historical: - Allergies: 21:01 No Known Allergies; tl4 - Home Meds: 21:01 Abilify 15 mg Oral tablet daily [Active]; Lamictal Oral [Active]; Strattera Oral tl4 [Active]; - PMHx: 21:01 adhd; Anxiety; Asthma; Bipolar disorder; depressive disorder; Ovarian cyst; tl4 - PSHx: 21:01 ear surgery; tl4 - Immunization history:: Adult Immunizations unknown. - Infectious Disease History:: Denies. - Social history:: Smoking status: Patient denies any tobacco usage or history of. Screenin:40 [facility] ED Fall Risk Assessment (Adult) History of falling in the last 3 months, jb4 including since admission No falls in past 3 months (0 pts) Confusion or Disorientation No (0 pts) Intoxicated or Sedated No (0 pts) Impaired Gait No (0 pts) Mobility Assist Device Used No (0 pt) Altered Elimination Yes (1 pt) Score/Fall Risk Level 0 - 2 = Low Risk Oriented to surroundings, Maintained a safe environment. Abuse screen: Denies threats or abuse. Nutritional screening: No deficits noted. Tuberculosis screening: No symptoms or risk factors identified. Assessment: 21:40 General: Appears in no apparent distress. uncomfortable, Behavior is calm, cooperative, jb4 appropriate for age. Pain: Denies pain. Neuro: Level of Consciousness is awake, alert, obeys commands, Oriented to person, place, time, situation. Cardiovascular: Patient's skin is warm and dry. Respiratory: Airway is patent Respiratory effort is even, unlabored, Respiratory pattern is regular, symmetrical. GI: Abdomen is flat, non-distended, Reports diarrhea, nausea. : No signs and/or symptoms were reported regarding the genitourinary system. EENT: No signs and/or symptoms were reported regarding the EENT system. Derm: Skin is intact, Skin is pink, warm \T\ dry. 23:53 Reassessment: Patient appears in no apparent distress at this time. Patient and/or jb4 family updated on plan of care and expected duration. Pain level reassessed. Patient is alert, oriented x 3, equal unlabored respirations, skin warm/dry/pink. Vital Signs: 20:56 BP 100 / 78; Pulse 92; Resp 16; Temp 98.3; Pulse Ox 98% on R/A; Weight 49.9 kg; Height tl4 5 ft. 3 in. ; Pain 8/10; 23:53 BP 106 / 66; Pulse 59; Resp 16; Pulse Ox 100% on R/A; jb4 20:56 Body Mass Index 19.49 (49.90 kg, 160.02 cm) tl4 20:56 Pain Scale: Adult tl4 ED Course: 20:49 Patient arrived in ED. ra3 20:49 [facility]C [facility]. kb 20:49 Mee Paredes MD is Attending Physician. kb 21:01 Triage completed. tl4 21:05 Arm band placed on right wrist. tl4 21:36 Initial lab(s) drawn, by mo, sent to lab. Inserted saline lock: 20 gauge in left jb4 antecubital area, using aseptic technique. Blood collected. 21:39 CMP Sent. jb4 21:39 CBC with Diff Sent. jb4 21:40 Patient has correct armband on for positive identification. Bed in low position. Call jb4 light in reach. Side rails up X 1. Provided Education on: plan of care. 21:40 Lipase Sent. jb4 21:40 TSH Sent. jb4 12/27 00:08 No provider procedures requiring assistance completed. IV discontinued, intact, jb4 bleeding controlled, No redness/swelling at site. Pressure dressing applied. Administered Medications: 12/26 21:49 Drug: NS 0.9% IV 1000 ml IV at 1 bolus Per protocol; 1000 mL bolus Route: IV; Rate: 1 jb4 bolus; Site: left antecubital; 12/27 00:00 Drug: Ondansetron IVP 4 mg IVP once; over 2 minutes Route: IVP; Site: left antecubital; jb4 00:10 Follow up: Response: Medication administered at discharge. jb4 Medication: 12/26 21:40 VIS not applicable for this client. jb4 Outcome: 23:50 Discharge ordered by . linda 12/27 00:10 Discharged to home ambulatory, jb4 Condition: stable Discharge instructions given to patient, Instructed on discharge instructions, follow up and referral plans. medication usage, Demonstrated understanding of instructions, follow-up care, medications, Prescriptions given X 1, 00:11 Patient left the ED. jb4 Signatures: Trudi Thomason FNP-C FNP-Ckb Bryson, James, RN RN jb4 LogCarlitos avendano RN RN tl4 Yael Telles ra3
[2023-12-27] MEDS ORDERED: ONDANSETRON 4 MG/2 ML VIAL ONE (23:58)
[2023-12-28 00:54] VITALS: BP 106/66; TEMP 98.3; O2SAT 100
== END 2023-12-28 00:11 | disposition home or self-care (01) ==
LOC: ER 20:46
DX: R19.7 Diarrhea, unspecified (principal); J45.909 Unspecified asthma, uncomplicated; F41.9 Anxiety disorder, unspecified; F31.9 Bipolar disorder, unspecified; F90.9 Attention-deficit hyperactivity disorder, unspecified type; Z79.899 Other long term (current) drug therapy
CPT/HCPCS: 36415; 80053; 83690; 84439; 84443; 85025; 87045; 87046; 87077; 87186; 96374; 99284; J2405; J7030

== ENCOUNTER 2024-01-30 21:16 | Emergency (ER) | payer SELFPAY ==
[2024-01-30 23:27] LABS: Absolute Eosinophils 0.1 K/uL (0-0.5); Absolute Lymphocytes (CBC) 2.1 K/uL (0.7-4.9); Absolute Monocytes 0.5 K/uL (0.1-1.3); Absolute Neutrophil 7.4 K/uL (1.8-8.0); Basophils % 0.4 % (0-1.3); Eosinophils % 0.5 % (0-4.4); Hematocrit 39.3 % (36.0-45.0); Hemoglobin 13.2 g/dL (12.0-15.0); Lymphocytes % 20.8 % (15.3-44.8); MCH 29.6 pg (27.0-35.0); MCHC 33.5 g/dL (32.0-36.0); MCV 88.5 fL (80-100); MPV 8.8 fL (7.6-11.3); Neutrophils % 73.3 % (41.7-73.7); Platelets 308 thou/uL (152-406); RBC Red Blood Cell Count 4.45 M/uL (3.86-4.86); Red Cell Distribution Width 13.5 % (12.1-15.2)
[2024-01-30 23:39] LABS: Anion Gap 6.6 mEq/L (5.0-15.0); Potassium 3.6 mEq/L (3.5-5.1)
--- NOTE | 2024-01-30 23:43 | EDPHYS ---
Physician Documentation [facility] Name: Vanda Pompa Age: 23 yrs Sex: Female : 2000 Arrival Date: 01/30/2024 Time: 21:16 Bed 25 Private MD: ED Physician Henri Moreno HPI: 01/29 21:27 This 23 yrs old Female presents to ER via Unassigned with complaints of Foot ec2 Injury. 21:27 Patient arrives today for evaluation after falling off a bridge reportedly ec2 approximately 10 feet. No loss of consciousness, reports that it was not intentional, denies any chest pain or difficulty breathing, denies abdominal pain, does report neck and back pain as well as right lower extremity pain. Patient says she is not suicidal, states that she tripped over her foot while trying to take a photo.. 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 - Infectious Disease History:: Denies. - Social history:: Smoking status: Reported history of juuling and/or vaping. ROS: 21:27 Constitutional: as per hpi ec2 Exam: 21:27 Constitutional: GEN: No acute distress HEENT: -Head: no deformities -Eyes: EOMI CV: ec2 regular rate LUNGS: no respiratory distress ABD: non-tender SKIN: no wounds appreciated MSK: No C/T/L spine deformities, general ttp RUE w/o bony deformity LUE w/o bony deformity RLE w/ ttp from femur to ankle, no obvious deformity, intact distal nv status. LLE w/o bony deformity NEURO: moves all extremities equally, GCS 15 (E4, V5, M6) Vital Signs: 21:27 BP 115 / 67; Pulse 98; Resp 18; Temp 97.4; Pulse Ox 98% on R/A; Weight 56.7 kg; Height cm10 5 ft. 3 in. ; Pain 10/10; 23:00 BP 94 / 66; Pulse 79; Resp 16; Pulse Ox 96% ; me1 23:30 BP 97 / 71; Pulse 89; Resp 16; Pulse Ox 100% ; me1 23:45 BP 104 / 70; Pulse 83; Resp 16; Pulse Ox 100% on R/A; me1 21:27 Body Mass Index 22.14 (56.70 kg, 160.02 cm) cm10 21:27 Pain Scale: Adult cm10 MDM: 21:21 Patient medically screened. ec2 21:27 Data reviewed: vital signs. ED course: Patient arrives today for evaluation of right ec2 lower extremity pain and back pain. Examination remarkable for well-appearing nontoxic individual is otherwise in no acute distress with a reassuring examination. Will obtain CT imaging as well as radiographs to evaluate for bony injuries. Differential includes bony contusions, fractures, intracranial injury, C-spine injury.. 23:14 ED course: Radiology comments about possible pubic arch fracture on radiographs. Will ec2 wait for CT scan. Rest of right lower extremity without bony fracture. . 23:37 ED course: CT imaging shows minimal T11 compression fracture. No significant loss of ec2 height, can follow-up outpatient with orthopedic surgery. Otherwise pelvis does not show any bony fracture. . 01/29 21:27 Order name: Basic Metabolic Panel; Complete Time: 23:43 ec2 01/29 21:27 Order name: CBC with Diff; Complete Time: 23:37 ec2 01/29 21:27 Order name: Type And Screen ec2 01/29 21:27 Order name: CT Traumagram (Head C Spine CAP wo con) ec2 01/29 21:27 Order name: Femur Right XRAY ec2 01/29 21:27 Order name: Knee Right 3 View XRAY ec2 01/29 21:27 Order name: Ankle Right 3 View XRAY ec2 01/29 21:27 Order name: Tib Fib Right XRAY ec2 01/29 21:27 Order name: Labs collected and sent; Complete Time: 23:15 ec2 Administered Medications: 23:45 CANCELLED (Patient Refused): hydrocodone-acetaminophen5 mg-325 mg 1 tabs PO once ec2 Disposition Summary: 01/30/24 23:43 Discharge Ordered Notes: Location: Home ec2 Condition: Stable ec2 Diagnosis - T11 Compression Fracture ec2 Followup: ec2 - With: Private Physician - When: - Reason: Re-evaluation by your physician Followup: ec2 - With: Santana Pyle MD - When: - Reason: Recheck today's complaints Discharge Instructions: - Discharge Summary Sheet ec2 - Acute Back Pain, Adult ec2 Forms: - Medication Reconciliation Form ec2 - Antibiotic Education ec2 - Prescription Opioid Use ec2 - Patient Portal Instructions ec2 - Leadership Thank You Letter ec2 Prescriptions: - Ibuprofen 800 mg Oral Tablet - take 1 tablet ORAL route every 8 hours As needed take with food; 30 tablet; ec2 Refills: 0, Product Selection Permitted Signatures: Dispatcher [employer] Helene Banks RN RN cm10 Henri Moreno MD MD ec2 Corrections: (The following items were deleted from the chart) 21:28 21:28 Ankle Right 3 View+RAD.RAD.BRZ ordered. [facility] 23:45 23:43 HYDROcodone-acetaminophen PO 5 mg-325 mg 1 tabs PO once ordered. ec2 ec2
--- NOTE | 2024-01-30 23:43 | ER ---
Nurse's Notes [facility] Name: Vanda Pompa Age: 23 yrs Sex: Female : 2000 Arrival Date: 01/30/2024 Time: 21:16 Bed 25 Private MD: Diagnosis: T11 Compression Fracture Presentation: 01/29 21:27 Chief complaint: EMS states: "we were called because the patient jumped off a bridge in cm10 a suicide attempt, per [place] [employer]." pt states that she was Walking on a bridge trying to take a picture and she tripped on her shoe lace and fell approximately 6-10ft. Pt complaining of right leg pain and back pain. Pt states that this was not a suicidal attempt. Coronavirus screen: Client denies travel out of the [place] in the last 14 days. At this time, the client does not indicate any symptoms associated with coronavirus-19. Ebola Screen: Patient denies travel to an Ebola-affected area in the 21 days before illness onset. No symptoms or risks identified at this time. Initial Sepsis Screen: Does the patient meet any 2 criteria? HR > 90 bpm. Does the patient have a suspected source of infection? No. Patient's initial sepsis screen is negative. Risk Assessment: Do you want to hurt yourself or someone else? Patient reports no desire to harm self or others. Onset of symptoms was January 30, 2024. 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 - Infectious Disease History:: Denies. - Social history:: Smoking status: Reported history of juuling and/or vaping. Screenin:35 [facility] ED Fall Risk Assessment (Adult) History of falling in the last 3 months, me1 including since admission Yes- single mechanical fall (1 pt) Confusion or Disorientation No (0 pts) Intoxicated or Sedated No (0 pts) Impaired Gait No (0 pts) Mobility Assist Device Used No (0 pt) Altered Elimination No (0 pt) Score/Fall Risk Level 0 - 2 = Low Risk Maintained a safe environment, Provided non-skid footwear, Hourly rounding (assess needs \\T\\ fall precautionary measures) done. Abuse screen: Denies threats or abuse. Nutritional screening: No deficits noted. Tuberculosis screening: No symptoms or risk factors identified. Assessment: 23:35 General: Appears uncomfortable, slender, well developed, well nourished, Behavior is me1 cooperative, appropriate for age, agitated, Reports "we were called because the patient jumped off a bridge in a suicide attempt, per [place] [employer]." pt states that she was Walking on a bridge trying to take a picture and she tripped on her shoe lace and fell approximately 6-10ft. Pt complaining of right leg pain and back pain. Pt states that this was not a suicidal attempt. Pain: Complains of pain in back and right leg Pain does not radiate. Pain currently is 9 out of 10 on a pain scale. Quality of pain is described as sharp, Pain began suddenly, Is continuous. Neuro: Level of Consciousness is awake, alert, obeys commands, Oriented to person, place, time, situation, Appropriate for age. Cardiovascular: Patient's skin is warm and dry. Respiratory: Airway is patent Trachea midline Respiratory effort is even, unlabored, Respiratory pattern is regular, symmetrical. GI: No signs and/or symptoms were reported involving the gastrointestinal system. : No signs and/or symptoms were reported regarding the genitourinary system. EENT: No signs and/or symptoms were reported regarding the EENT system. Derm: Skin is intact, is healthy with good turgor, Skin is pink, warm \\T\\ dry. Musculoskeletal: Reports pain in back and right leg. Injury Description: "we were called because the patient jumped off a bridge in a suicide attempt, per [place] [employer]." pt states that she was Walking on a bridge trying to take a picture and she tripped on her shoe lace and fell approximately 6-10ft. Pt complaining of right leg pain and back pain. Pt states that this was not a suicidal attempt. Vital Signs: 21:27 BP 115 / 67; Pulse 98; Resp 18; Temp 97.4; Pulse Ox 98% on R/A; Weight 56.7 kg; Height cm10 5 ft. 3 in. ; Pain 10/10; 23:00 BP 94 / 66; Pulse 79; Resp 16; Pulse Ox 96% ; me1 23:30 BP 97 / 71; Pulse 89; Resp 16; Pulse Ox 100% ; me1 23:45 BP 104 / 70; Pulse 83; Resp 16; Pulse Ox 100% on R/A; me1 21:27 Body Mass Index 22.14 (56.70 kg, 160.02 cm) cm10 21:27 Pain Scale: Adult cm10 ED Course: 21:20 Patient arrived in ED. ec2 21:21 Henri Moreno MD is Attending Physician. ec2 21:31 Triage completed. cm10 21:32 Arm band placed on Patient placed in waiting room. cm10 22:39 Femur Right XRAY In Process Unspecified. EDMS 22:39 Knee Right 3 View XRAY In Process Unspecified. EDMS 22:39 Ankle Right 3 View XRAY In Process Unspecified. EDMS 22:39 Tib Fib Right XRAY In Process Unspecified. EDMS 22:51 CT Traumagram (Head C Spine CAP wo con) In Process Unspecified. EDMS 22:58 Jenny Potter, OLGA is Primary Nurse. me1 23:15 Initial lab(s) drawn, by me, sent to lab. T\\T\\S collected, blood band applied to patient. me1 Inserted saline lock: 22 gauge in left antecubital area, using aseptic technique. 23:15 Basic Metabolic Panel Sent. me1 23:15 CBC with Diff Sent. me1 23:15 Type And Screen Sent. me1 23:35 Patient has correct armband on for positive identification. Bed in low position. Call me1 light in reach. Side rails up X2. Provided Education on: POC. Verbalized understanding. . Client placed on continuous cardiac and pulse oximetry monitoring. NIBP monitoring applied. Pulse ox on. NIBP on. 23:35 No provider procedures requiring assistance completed. me1 23:43 Santana Pyle MD is Referral Physician. ec2 01/30 00:03 IV discontinued, intact, bleeding controlled, No redness/swelling at site. Pressure me1 dressing applied. Administered Medications: 01/29 23:45 CANCELLED (Patient Refused): hydrocodone-acetaminophen5 mg-325 mg 1 tabs PO once ec2 Medication: 23:35 VIS not applicable for this client. me1 Outcome: 23:43 Discharge ordered by . ec2 01/30 00:03 Discharged to home via wheelchair, with family, me1 Condition: stable Discharge instructions given to patient, Instructed on discharge instructions, follow up and referral plans. medication usage, Demonstrated understanding of instructions, follow-up care, medications, Prescriptions given X 1, 00:08 Patient left the ED. me1 Signatures: Dispatcher [employer] EDHelene Guerra RN RN cm10 Jenny Potter RN RN me1 Henri Moreno MD MD ec2 Corrections: (The following items were deleted from the chart) 01/29 23:35 21:27 Chief complaint: EMS states: "we were called because the patient jumped [place] in a suicide attempt, per [place] [employer]." pt states that she was Walking on a bridge trying to take a picture and she tripped on her shoe lace and fell approximately 6-10ft. Pt complaining of right leg pain and back pain. Pt states that this was not a suicidal attempt. cm10
[2024-01-31 07:26] VITALS: TEMP 97.4
[2024-01-31 07:33] VITALS: O2SAT 100
[2024-01-31 07:34] VITALS: BP 104/70
--- NOTE | 2024-01-31 11:21 | RAD REPORT ---
EXAM DESCRIPTION: RAD - Femur Right - 01/30/2024 10:37 pm CLINICAL HISTORY: Fall COMPARISON: None. TECHNIQUE: XR FEMUR 2 VIEWS RIGHT 01/30/2024 9:27 PM CDT FINDINGS: There is irregularity of the medial right pubic arch. There is an osseous body overlying t he left hip measuring 8 mm. Joint spaces are preserved. Soft tissues are unremarkable. IMPRESSION: Possible right pubic arch fracture. Electronically signed by: Henrique Rivera MD 01/30/2024 11:03 PM CDT RP Due to temporary technical issues with the PACS/Fluency reporting system, reports are being signed by the in house radiologist without review as a courtesy to ensure prompt reporting. The interpreting r adiologist is fully responsible for the content of the report.
--- NOTE | 2024-01-31 11:52 | RAD REPORT ---
EXAM DESCRIPTION: RAD - Tib Fib Right - 01/30/2024 10:39 pm CLINICAL HISTORY: Fall COMPARISON: None. TECHNIQUE: XR TIBIA FIBULA RIGHT 01/30/2024 9:27 PM CDT FINDINGS: There is no fracture. Joint spaces are preserved. There is mild soft tissue swelling ove rlying the lateral aspect of the ankle. IMPRESSION: No acute osseous findings. Electronically signed by: Henrique Rivera MD 01/30/2024 11:04 PM CDT RP Due to temporary technical issues with the PACS/Fluency reporting system, reports are being signed by the in house radiologist without review as a courtesy to ensure prompt reporting. The interpreting r adiologist is fully responsible for the content of the report.
--- NOTE | 2024-01-31 12:07 | RAD REPORT ---
EXAM DESCRIPTION: RAD - Knee Right 3 View - 01/30/2024 10:37 pm CLINICAL HISTORY: Fall COMPARISON: None. TECHNIQUE: XR KNEE 3 VIEWS RIGHT 01/30/2024 9:27 PM CDT FINDINGS: There is no fracture. Joint spaces are preserved. There is mild medial soft tissue swell ing. IMPRESSION: No acute osseous findings. Electronically signed by: Henrique Rivera MD 01/30/2024 11:04 PM CDT RP Due to temporary technical issues with the PACS/Fluency reporting system, reports are being signed by the in house radiologist without review as a courtesy to ensure prompt reporting. The interpreting r adiologist is fully responsible for the content of the report.
--- NOTE | 2024-01-31 12:14 | RAD REPORT ---
EXAM DESCRIPTION: RAD - Ankle Right 3 View - 01/30/2024 10:37 pm CLINICAL HISTORY: Fall COMPARISON: None. TECHNIQUE: XR ANKLE 3 OR MORE VIEWS RIGHT 01/30/2024 9:27 PM CDT FINDINGS: There is no fracture. Joint spaces are preserved. There is mild lateral soft tissue swel ling. IMPRESSION: No acute osseous findings. Electronically signed by: Henrique Rivera MD 01/30/2024 11:04 PM CDT RP Due to temporary technical issues with the PACS/Fluency reporting system, reports are being signed by the in house radiologist without review as a courtesy to ensure prompt reporting. The interpreting r adiologist is fully responsible for the content of the report.
--- NOTE | 2024-01-31 12:17 | RAD REPORT ---
EXAM DESCRIPTION: CT - Head C Spine Cap Wo Con - 01/31/2024 6:42 am CLINICAL HISTORY: Fall from height COMPARISON: None. TECHNIQUE: CT HEAD CERVICAL SPINE CHEST ABDOMEN PELVIS WITHOUT IV CONTRAST on 01/30/2024 9:27 PM CDT This exam was performed according to our departmental dose-optimization program, which includes autom ated exposure control, adjustment of the mA and/or kV according to patient size and/or use of iterati ve reconstruction technique. FINDINGS: Brain: There is no acute hemorrhage, mass effect or midline shift. Blair-white differentiat ion is preserved. There is no hydrocephalus. There is no significant volume loss for age. The calvarium is intact. Orbits and globes are unremarkable. The paranasal sinuses are clear. Mastoid air cells are clear. Cervical Spine: There is no acute fracture. Alignment is anatomic. Disc spaces are maintained. Vertebral body heights are preserved. Soft tissues are unremarkable. Chest: The heart is normal in size. There is no pericardial effusion. Intrathoracic lymph nodes are n ot enlarged. There is no pleural effusion, pleural thickening or pneumothorax. Central airways are patent. Lungs a re clear with no consolidation, mass or interstitial lung disease. Abdomen: The liver is normal in appearance. There is no biliary dilatation. The pancreas and spleen a re normal in appearance. The adrenal glands and kidneys are unremarkable. Abdominal aorta is normal in course and caliber without aneurysm. There is no free air. There is no r etroperitoneal adenopathy. Pelvis: There is no bowel obstruction. Urinary bladder is unremarkable. There is no free fluid. Skeleton: There is suggestion of a minimal acute anterior T11 compression fracture. Gallbladder is no rmal in appearance. Uterus is normal in size. Appendix is normal. There is an old deformity of the an terior right iliac bone. There is a possible old right inferior pubic arch fracture. IMPRESSION: Suspect minimal acute anterior T11 compression fracture. No acute posttraumatic findings of the head or C-spine. Electronically signed by: Henrique Rivera MD 01/30/2024 11:23 PM CDT Due to temporary technical issues with the PACS/Fluency reporting system, reports are being signed by the in house radiologist without review as a courtesy to ensure prompt reporting. The interpreting r adiologist is fully responsible for the content of the report.
== END 2024-01-31 00:08 | disposition home or self-care (01) ==
LOC: ER 21:16
DX: S22.080A Wedge compression fracture of T11-T12 vertebra, initial encounter for closed fracture (principal)
CPT/HCPCS: 36415; 70450; 71250; 72125; 80048; 85025; 86850; 86900; 86901; 99284

== ENCOUNTER 2024-01-31 10:53 | Emergency (ER) | payer SELFPAY ==
[2024-01-31] MEDS ORDERED: IBUPROFEN 200 MG TAB PO ONE (12:19)
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
[2024-01-31 16:56] VITALS: TEMP 97; O2SAT 99
[2024-01-31 17:01] VITALS: BP 111/61
== END 2024-01-31 12:56 | disposition home or self-care (01) ==
LOC: ER 10:53
DX: S22.080A Wedge compression fracture of T11-T12 vertebra, initial encounter for closed fracture (principal)
CPT/HCPCS: 99283

== ENCOUNTER 2024-02-02 21:47 | Emergency (ER) | payer SELFPAY ==
[2024-02-02 22:27] LABS: Absolute Basophils 0.1 K/uL (0-0.5); Absolute Eosinophils 0.1 K/uL (0-0.5); Absolute Lymphocytes (CBC) 2.7 K/uL (0.7-4.9); Absolute Monocytes 0.5 K/uL (0.1-1.3); Absolute Neutrophil 6.9 K/uL (1.8-8.0); Basophils % 0.6 % (0-1.3); Eosinophils % 0.8 % (0-4.4); Hematocrit 40.9 % (36.0-45.0); Lymphocytes % 26.5 % (15.3-44.8); MCH 28.4 pg (27.0-35.0); MCHC 31.9 g/dL (32.0-36.0); MCV 89.1 fL (80-100); MPV 9.1 fL (7.6-11.3); Monocytes % 5.3 % (3.3-12.3); Neutrophils % 66.8 % (41.7-73.7); Platelets 313 thou/uL (152-406); RBC Red Blood Cell Count 4.59 M/uL (3.86-4.86); Red Cell Distribution Width 13.5 % (12.1-15.2)
[2024-02-02] MEDS ORDERED: NA CHLORIDE 0.9% 1,000 ML ONE (22:32)
[2024-02-02] MEDS ORDERED: DIAZEPAM 10 MG/2 ML INJ SYRINGE ONE (22:38)
[2024-02-02 22:48] LABS: Albumin 3.7 g/dL (3.4-5.0); Albumin/Globulin Ratio 1.2 (1.1-1.8); Anion Gap 8.7 mEq/L (5.0-15.0); Bilirubin Total 0.3 mg/dL (0.2-1.0); Globulin 3.2 g/dL (2.3-3.5); Potassium 3.7 mEq/L (3.5-5.1); Protein, Total 6.9 g/dL (6.4-8.2)
[2024-02-03] MEDS ORDERED: KETOROLAC 30 MG/ML INJ ONE (00:36)
[2024-02-03] MEDS ORDERED: ONDANSETRON 4 MG/2 ML VIAL ONE (00:36)
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
--- NOTE | 2024-02-03 01:06 | ER ---
Nurse's Notes [facility] Name: Vanda Pompa Age: 23 yrs Sex: Female : 2000 Arrival Date: 02/02/2024 Time: 21:47 Bed 18 Private MD: Diagnosis: Headache;Nausea with vomiting, unspecified Presentation: 02/01 21:50 Chief complaint: Patient states: c/o headache n/v x2 days. Coronavirus screen: At this al5 time, the client does not indicate any symptoms associated with coronavirus-19. Ebola Screen: No symptoms or risks identified at this time. Initial Sepsis Screen: Does the patient meet any 2 criteria? No. Patient's initial sepsis screen is negative. Does the patient have a suspected source of infection? No. Patient's initial sepsis screen is negative. Risk Assessment: Do you want to hurt yourself or someone else? Patient reports no desire to harm self or others. Onset of symptoms was January 30, 2024. 21:50 Method Of Arrival: EMS: [facility] ut5 21:50 Acuity: FREDY 3 al5 Triage Assessment: 21:52 Headache History: The patient has had previous headaches and this one is similar to al5 previous episodes. General: Appears in no apparent distress. uncomfortable, Behavior is calm, cooperative. Pain: Complains of pain in head Pain currently is 7 out of 10 on a pain scale. Pain began 2-3 days ago. Also complains of nausea, vomiting. EENT: No signs and/or symptoms were reported regarding the EENT system. Neuro: Level of Consciousness is awake, alert, obeys commands, Oriented to person, place, time, situation. Cardiovascular: Patient's skin is warm and dry. Respiratory: Airway is patent Respiratory effort is even, unlabored, Respiratory pattern is regular, symmetrical. GI: No signs and/or symptoms were reported involving the gastrointestinal system. GI: Reports nausea, vomiting. : No signs and/or symptoms were reported regarding the genitourinary system. Derm: Skin is intact, Skin is pink, warm \T\ dry. normal. Musculoskeletal: No signs and/or symptoms reported regarding the musculoskeletal system. 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 - Infectious Disease History:: Denies. - Social history:: Smoking status: Reported history of juuling and/or vaping. Screenin:55 [facility] ED Fall Risk Assessment (Adult) History of falling in the last 3 months, al5 including since admission No falls in past 3 months (0 pts) Confusion or Disorientation No (0 pts) Intoxicated or Sedated No (0 pts) Impaired Gait No (0 pts) Mobility Assist Device Used No (0 pt) Altered Elimination No (0 pt) Score/Fall Risk Level 0 - 2 = Low Risk Oriented to surroundings, Maintained a safe environment, Hourly rounding (assess needs \T\ fall precautionary measures) done. Abuse screen: Denies threats or abuse. Denies injuries from another. Nutritional screening: No deficits noted. Tuberculosis screening: No symptoms or risk factors identified. Assessment: 21:54 Reassessment: see triage note. Pain: Complains of pain in head Pain currently is 7 out al5 of 10 on a pain scale. Vital Signs: 21:50 BP 108 / 79; Pulse 85; Resp 16; Temp 98.8; Pulse Ox 98% on R/A; Weight 69.4 kg; Height al5 5 ft. 3 in. 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 Motor Response: obeys commands(6). Verbal Response: sb4 oriented(5). Total: 15. ED Course: 21:50 Patient arrived in ED. al5 21:50 Akiko Rossi, OLGA is Primary Nurse. al5 21:52 Triage completed. al5 21:53 Nanci Alvarado PA-C [facility] sb4 21:53 Mejia Green MD is Attending Physician. sb4 21:54 Arm band placed on right wrist. Patient placed in the treatment room, on a stretcher. al5 21:55 Patient has correct armband on for positive identification. Bed in low position. Call al5 light in reach. Side rails up X 1. Provided Education on: processes and procedures. 21:55 No provider procedures requiring assistance completed. al5 22:15 CBC with Diff Sent. al5 22:15 CMP Sent. al5 22:15 Lipase Sent. al5 22:15 Inserted saline lock: 22 gauge in right antecubital area, using aseptic technique. al5 22:36 CT Head C Spine In Process Unspecified. EDMS 02/02 01:34 IV discontinued, intact, bleeding controlled, No redness/swelling at site. Pressure al5 dressing applied. Administered Medications: 02/01 22:51 Drug: NS 0.9% IV 1000 ml IV at 1 bolus Per protocol; 1000 mL bolus Route: IV; Rate: 1 al5 bolus; Site: right antecubital; 02/02 00:29 Follow up: IV Status: Completed infusion; IV Intake: 1000ml al5 00:29 Follow up: Response: No adverse reaction; IV Status: Completed infusion; IV Intake: al5 1000ml 02/01 22:51 Drug: Diazepam IVP 5 mg IVP once Route: IVP; Site: right antecubital; al5 02/02 00:29 Follow up: Response: No adverse reaction al5 00:52 Drug: Ketorolac IVP 15 mg IVP once Route: IVP; Site: right antecubital; al5 01:11 Follow up: Response: No adverse reaction al5 00:52 Drug: Ondansetron IVP 4 mg IVP once; over 2 minutes Route: IVP; Site: right antecubital;al5 01:11 Follow up: Response: No adverse reaction al5 01:30 Not Given (Physician Discretion): hydrocodone-acetaminophen5 mg-325 mg 1 tabs PO once al5 Medication: 02/01 21:55 VIS not applicable for this client. al5 Intake: 02/02 00:29 IV: 1000ml; Total: 1000ml. al5 00:29 IV: 1000ml; Total: 2000ml. al5 Outcome: 01:06 Discharge ordered by sb4 01:34 Discharged to home ambulatory, al5 01:34 Condition: good 01:34 Discharge instructions given to patient, Instructed on discharge instructions, follow up and referral plans. medication usage, Demonstrated understanding of instructions, follow-up care, medications, Prescriptions given X 1, 01:34 Patient left the ED. al5 Signatures: Dispatcher [employer] Nanci Red PAMikkiC PA-C sb4 Akiko Rossi, RN RN al5
[2024-02-03 05:51] VITALS: TEMP 98.8
[2024-02-03 06:09] VITALS: O2SAT 100
[2024-02-03 06:10] VITALS: BP 111/65
--- NOTE | 2024-02-03 19:31 | RAD REPORT ---
EXAM DESCRIPTION: CT Head and Cervical Spine Without Intravenous Contrast CLINICAL HISTORY: The patient is 23 years old and is Female; Headache. TECHNIQUE: Axial computed tomography images of the head/brain and cervical spine without intravenous contrast. Sagittal and coronal reformatted images were created and reviewed. This CT exam was pe rformed using one or more of the following dose reduction techniques: automated exposure control, a djustment of the mA and/or kV according to patient size, and/or use of iterative reconstruction techn ique. DLP: 1032 mGy*cm COMPARISON: CT Head cervical spine chest abdomen pelvis w/o contrast 01/30/2024 . FINDINGS: BRAIN: Unremarkable. No hemorrhage. No significant white matter disease. No edema. VENTRICLES: Unremarkable. No ventriculomegaly. SKULL: No acute fracture. SINUSES: Unremarkable as visualized. No acute sinusitis. MASTOID AIR CELLS: Unremarkable as visualized. No mastoid effusion. VERTEBRAE: Unremarkable. No acute fracture. Normal alignment. DISCS/SPINAL CANAL/NEURAL FORAMINA: No acute findings. No spinal canal stenosis. SOFT TISSUES: Unremarkable. IMPRESSION: 1. No acute intracranial abnormality. 2. No acute cervical spine fracture or subluxation. Electronically signed by: Toi Bingham DO 02/02/2024 11:58 PM CDT RP 9 Due to temporary technical issues with the PACS/Fluency reporting system, reports are being signed by the in house radiologists without review as a courtesy to insure prompt reporting. The interpreting radiologist is fully responsible for the content of the report.
== END 2024-02-03 01:34 | disposition home or self-care (01) ==
LOC: ER 21:47
DX: R51.9 Headache, unspecified (principal); R11.2 Nausea with vomiting, unspecified
CPT/HCPCS: 36415; 70450; 72125; 80053; 83690; 85025; 96361; 96374; 96375; 99284; J2405; J3360; J7030

== ENCOUNTER 2024-02-05 09:15 | Emergency (ER) | payer SELFPAY ==
[2024-02-05] MEDS ORDERED: KETOROLAC 30 MG/ML INJ ONE (09:59)
[2024-02-05] MEDS ORDERED: ONDANSETRON 4 MG/2 ML VIAL ONE (09:59)
[2024-02-05 10:08] LABS: Absolute Eosinophils 0.1 K/uL (0-0.5); Absolute Lymphocytes (CBC) 1.7 K/uL (0.7-4.9); Absolute Monocytes 0.4 K/uL (0.1-1.3); Absolute Neutrophil 5.7 K/uL (1.8-8.0); Basophils % 0.3 % (0-1.3); Eosinophils % 0.8 % (0-4.4); Hematocrit 41.5 % (36.0-45.0); Hemoglobin 13.8 g/dL (12.0-15.0); Lymphocytes % 21.5 % (15.3-44.8); MCH 29.5 pg (27.0-35.0); MCHC 33.3 g/dL (32.0-36.0); MCV 88.5 fL (80-100); MPV 8.8 fL (7.6-11.3); Monocytes % 5.5 % (3.3-12.3); Neutrophils % 71.9 % (41.7-73.7); Platelets 293 thou/uL (152-406); RBC Red Blood Cell Count 4.69 M/uL (3.86-4.86); Red Cell Distribution Width 13.1 % (12.1-15.2)
[2024-02-05 10:23] LABS: Albumin 3.7 g/dL (3.4-5.0); Albumin/Globulin Ratio 1.2 (1.1-1.8); Anion Gap 5.9 mEq/L (5.0-15.0); Bilirubin Total 0.5 mg/dL (0.2-1.0); Globulin 3.2 g/dL (2.3-3.5); Potassium 3.9 mEq/L (3.5-5.1); Protein, Total 6.9 g/dL (6.4-8.2)
--- NOTE | 2024-02-05 10:53 | EDPHYS ---
Physician Documentation [facility] Name: Vanda Pompa Age: 23 yrs Sex: Female : 2000 Arrival Date: 02/05/2024 Time: 09:15 Bed 5 Private MD: ED Physician Nidia Briones HPI: 02/04 10:11 This 23 yrs old Female presents to ER via Ambulatory with complaints of Flank gb1 Pain - burning sensation. 10:11 Ms. Pompa is a very healthy 23-year-old female that comes from home for gb1 right upper quadrant burning sensation. She states that she was in the emergency department just a few days ago and told that her gallbladder had stones. She states that she is nauseated no vomiting. She is able to tolerate fluids and food by mouth. She has a history of psychiatric illnesses for which she does not take her medications. She also denies any fever or chills. She has an appointment to follow-up with the general surgeon tomorrow but states that she has not been ago because she cannot afford the visits and she does not have health insurance.. Historical: - Allergies: 09:34 No Known Drug Allergies; hb - Home Meds: 09:35 Abilify 15 mg Oral tablet daily [Active]; Lamictal Oral [Active]; Lamictal Oral hb [Active]; Strattera Oral [Active]; - PMHx: 09:34 adhd; Anxiety; Asthma; Bipolar disorder; Hypothyroidism; Ovarian cyst; hb 09:35 Borderline Personality Disorder; hb - PSHx: 09:34 ear surgery; hb - Immunization history:: Adult Immunizations up to date. - Infectious Disease History:: Denies. - Social history:: Smoking status: Reported history of juuling and/or vaping. Exam: 10:11 Constitutional: This is a well developed, well nourished patient who is awake, alert, gb1 and in no acute distress. Head/Face: Normocephalic, atraumatic. Eyes: Pupils equal round and reactive to light, extra-ocular motions intact. Lids and lashes normal. Conjunctiva and sclera are non-icteric and not injected. Cornea within normal limits. Periorbital areas with no swelling, redness, or edema. ENT: Nares patent. No nasal discharge, no septal abnormalities noted. Tympanic membranes are normal and external auditory canals are clear. Oropharynx with no redness, swelling, or masses, exudates, or evidence of obstruction, uvula midline. Mucous membranes moist. Neck: Trachea midline, no thyromegaly or masses palpated, and no cervical lymphadenopathy. Supple, full range of motion without nuchal rigidity, or vertebral point tenderness. No Meningismus. Chest/axilla: Normal chest wall appearance and motion. Nontender with no deformity. No lesions are appreciated. Cardiovascular: Regular rate and rhythm with a normal S1 and S2. No gallops, murmurs, or rubs. Normal PMI, no JVD. No pulse deficits. Respiratory: Lungs have equal breath sounds bilaterally, clear to auscultation and percussion. No rales, rhonchi or wheezes noted. No increased work of breathing, no retractions or nasal flaring. Abdomen/GI: Soft, non-tender, with normal bowel sounds. No distension or tympany. No guarding or rebound. No evidence of tenderness throughout. Back: No spinal tenderness. No costovertebral tenderness. Full range of motion. Skin: Warm, dry with normal turgor. Normal color with no rashes, no lesions, and no evidence of cellulitis. MS/ Extremity: Pulses equal, no cyanosis. Neurovascular intact. Full, normal range of motion. Neuro: Awake and alert, GCS 15, oriented to person, place, time, and situation. Cranial nerves II-XII grossly intact. Motor strength 5/5 in all extremities. Sensory grossly intact. Cerebellar exam normal. Normal gait. Vital Signs: 09:34 BP 117 / 73; Pulse 97; Resp 16; Temp 98.9(O); Pulse Ox 96% on R/A; Weight 58.97 kg; hb Height 5 ft. 3 in. ; Pain 7/10; 10:15 BP 115 / 72; Pulse 90; Resp 16 S; Pulse Ox 98% on R/A; aa5 09:34 Body Mass Index 23.03 (58.97 kg, 160.02 cm) hb 09:34 Pain Scale: Adult hb MDM: 09:26 Patient medically screened. gb1 10:11 Differential diagnosis: Biliary colic, acute cholecystitis, choledocholithiasis, gb1 gastritis, peptic ulcer disease. 10:50 Data reviewed: vital signs, nurses notes, lab test result(s), amylase and lipase, CBC, gb1 hepatic panel, urinalysis. ED course: 23-year-old female with right upper quadrant pain and nausea, no vomiting. Labs today are normal without biliary obstruction or acute cholecystitis. I discharge patient home to follow-up with her surgeon as previously instructed to follow-up with as an outpatient for a HIDA scan to evaluate her gallbladder.. 02/04 09:46 Order name: CBC with Diff; Complete Time: 10: gb1 02/04 09:46 Order name: CMP; Complete Time: : gb1 02/04 09:46 Order name: Lipase; Complete Time: : gb1 02/04 09:46 Order name: IV Saline Lock; Complete Time: 58 gb1 02/04 09:46 Order name: Labs collected and sent; Complete Time: gb1 Administered Medications: 10:02 Drug: Ondansetron IVP 4 mg IVP once; over 2 minutes Route: IVP; Site: right antecubital;aa5 10:15 Follow up: Response: No adverse reaction aa5 10:04 Drug: Ketorolac IVP 30 mg IVP once Route: IVP; Site: right antecubital; aa5 10:15 Follow up: Response: No adverse reaction aa5 Disposition Summary: 02/05/24 10:53 Discharge Ordered Notes: Location: Home gb1 Condition: Stable gb1 Diagnosis - Acute gastritis gb1 Followup: gb1 - With: Private Physician - When: Tomorrow - Reason: Discharge Instructions: - Discharge Summary Sheet gb1 Forms: - Medication Reconciliation Form gb1 - Antibiotic Education gb1 - Prescription Opioid Use gb1 - Patient Portal Instructions gb1 - Leadership Thank You Letter gb1 Prescriptions: - Zofran 4 mg Oral Tablet - take 1 tablet ORAL route every 12 hours As needed; 20 tablet; Refills: 0, gb1 Product Selection Permitted Signatures: Dispatcher MedHo Brina Dennis RN RN aa5 Ashlyn Patel RN RN Nidia Das MD MD gb1 Corrections: (The following items were deleted from the chart) 09: 09:21 Urinalysis W/Microscopic+U.LAB.BRZ ordered. EDMS EDMS 09: 09:21 Urine Culture+BA.LAB.BRZ ordered. EDMS EDMS 09:34 PMHx: depressive disorder; hb hb 36 09:34 PMHx: Borderline Personality Disorder (ear surgery); hb hb
--- NOTE | 2024-02-05 10:53 | ER ---
Nurse's Notes [facility] Name: Vanda Pompa Age: 23 yrs Sex: Female : 2000 Arrival Date: 02/05/2024 Time: 09:15 Bed 5 Private MD: Diagnosis: Acute gastritis Presentation: 02/04 09:34 Chief complaint: Burning with urination and right flank pain x 2 days. Coronavirus hb screen: At this time, the client does not indicate any symptoms associated with coronavirus-19. Ebola Screen: No symptoms or risks identified at this time. Initial Sepsis Screen: Does the patient meet any 2 criteria? No. Patient's initial sepsis screen is negative. Does the patient have a suspected source of infection? No. Patient's initial sepsis screen is negative. Risk Assessment: Do you want to hurt yourself or someone else? Patient reports no desire to harm self or others. Onset of symptoms was February 04, 2024. 09:34 Method Of Arrival: Ambulatory hb 09:34 Acuity: FREDY 3 hb Historical: - Allergies: 09:34 No Known Drug Allergies; hb - Home Meds: 09:35 Abilify 15 mg Oral tablet daily [Active]; Lamictal Oral [Active]; Lamictal Oral hb [Active]; Strattera Oral [Active]; - PMHx: 09:34 adhd; Anxiety; Asthma; Bipolar disorder; Hypothyroidism; Ovarian cyst; hb 09:35 Borderline Personality Disorder; hb - PSHx: 09:34 ear surgery; hb - Immunization history:: Adult Immunizations up to date. - Infectious Disease History:: Denies. - Social history:: Smoking status: Reported history of juuling and/or vaping. Screenin:40 [facility] ED Fall Risk Assessment (Adult) History of falling in the last 3 months, aa5 including since admission No falls in past 3 months (0 pts) Confusion or Disorientation No (0 pts) Intoxicated or Sedated No (0 pts) Impaired Gait No (0 pts) Mobility Assist Device Used No (0 pt) Altered Elimination No (0 pt) Score/Fall Risk Level 0 - 2 = Low Risk Oriented to surroundings, Maintained a safe environment, Educated pt \T\ family on fall prevention, incl call for assistance when getting out of bed. Abuse screen: Denies threats or abuse. Nutritional screening: No deficits noted. Tuberculosis screening: No symptoms or risk factors identified. Assessment: 09:40 General: Appears comfortable, Behavior is calm, cooperative. Pain: Complains of pain in aa5 right flank Pain currently is 7 out of 10 on a pain scale. Quality of pain is described as burning, Pain began 2-3 days ago. Is continuous. Neuro: Level of Consciousness is awake, alert, obeys commands, Oriented to person, place, time, situation. Cardiovascular: Heart tones S1 S2 present Rhythm is regular. Respiratory: Airway is patent Respiratory effort is even, unlabored, Respiratory pattern is regular, symmetrical. GI: Abdomen is flat, non-distended, Bowel sounds present X 4 quads. Abd is soft and non tender X 4 quads. Patient currently denies diarrhea, nausea, vomiting. : Denies burning with urination, inability to void, urinary frequency, urgency. EENT: No signs and/or symptoms were reported regarding the EENT system. Derm: Skin is pink, warm \T\ dry. Musculoskeletal: Range of motion: intact in all extremities. 10:02 Reassessment: Patient is alert, oriented x 3, equal unlabored respirations, skin aa5 warm/dry/pink. 11:05 Reassessment: Patient is alert, oriented x 3, equal unlabored respirations, skin aa5 warm/dry/pink. Vital Signs: 09:34 BP 117 / 73; Pulse 97; Resp 16; Temp 98.9(O); Pulse Ox 96% on R/A; Weight 58.97 kg; hb Height 5 ft. 3 in. ; Pain 7/10; 10:15 BP 115 / 72; Pulse 90; Resp 16 S; Pulse Ox 98% on R/A; aa5 09:34 Body Mass Index 23.03 (58.97 kg, 160.02 cm) hb 09:34 Pain Scale: Adult hb ED Course: 09:17 Patient arrived in ED. ra3 09:18 Nidia Briones MD is Attending Physician. gb1 09:30 Brina Turcios, RN is Primary Nurse. aa5 09:34 Triage completed. hb 09:36 Arm band placed on. hb 09:40 Patient has correct armband on for positive identification. Bed in low position. Call aa5 light in reach. Side rails up X 1. Adult w/ patient. 09:50 Initial lab(s) drawn, by me, sent to lab. Inserted saline lock: 22 gauge in right aa5 antecubital area, using aseptic technique. Blood collected. Flushed with 10 mL NS. 11:05 No provider procedures requiring assistance completed. IV discontinued, intact, aa5 bleeding controlled, No redness/swelling at site. Pressure dressing applied. Administered Medications: 10:02 Drug: Ondansetron IVP 4 mg IVP once; over 2 minutes Route: IVP; Site: right antecubital;aa5 10:15 Follow up: Response: No adverse reaction aa5 10:04 Drug: Ketorolac IVP 30 mg IVP once Route: IVP; Site: right antecubital; aa5 10:15 Follow up: Response: No adverse reaction aa5 Medication: 09:40 VIS not applicable for this client. aa5 Outcome: 10:53 Discharge ordered by . gb1 11:05 Discharged to home ambulatory, with friend, aa5 11:05 Condition: stable 11:05 Discharge instructions given to patient, Instructed on discharge instructions, follow up and referral plans. medication usage, Demonstrated understanding of instructions, follow-up care, medications, Prescriptions given X 1, 11:08 Patient left the ED. aa5 Signatures: Brina Turcios RN RN aa5 Ashlyn Patel RN RN hb Nidia Briones MD MD gb1 Yael Telles ra3 Corrections: (The following items were deleted from the chart) 09:36 09:34 PMHx: depressive disorder; hb hb 09:36 09:34 PMHx: Borderline Personality Disorder (ear surgery); hb hb 10:15 09:34 BP 177 / 3; Pulse 97bpm; Resp 16bpm; Pulse Ox 96% RA; Temp 98.9F Oral; 58.97 kg; hb Height 5 ft. 3 in.; BMI: 23.0; Pain 7/10, Adult; hb
[2024-02-05 13:38] VITALS: BP 117/73; TEMP 98.9; O2SAT 96
== END 2024-02-05 11:08 | disposition home or self-care (01) ==
LOC: ER 09:15
DX: K29.00 Acute gastritis without bleeding (principal)
CPT/HCPCS: 36415; 80053; 83690; 85025; 96374; 96375; 99284; J2405

== ENCOUNTER 2024-02-18 21:42 | Emergency (ER) | payer SELFPAY ==
[2024-02-18] MEDS ORDERED: LORazepam 2 MG/ML VIAL ONE (21:59)
[2024-02-18] MEDS ORDERED: DIPHENHYDRAMINE 50 MG/ML VIAL ONE (23:57)
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
--- NOTE | 2024-02-19 00:59 | ER ---
Nurse's Notes [facility] Name: Vanda Pompa Age: 23 yrs Sex: Female : 2000 Arrival Date: 02/18/2024 Time: 21:42 Bed 20 Private MD: Diagnosis: Borderline personality disorder;Bipolar disorder, unspecified Presentation: 02/17 21:49 Chief complaint: Patient states: I am having a BPDsplitting episode. I am really worked [facility] up and it just flips like a switch where I am happy and then angry or depressed. My depression is no worse than before. I am not suicidal and I am not homicidal. I just need some help. Coronavirus screen: At this time, the client does not indicate any symptoms associated with coronavirus-19. Ebola Screen: No symptoms or risks identified at this time. Initial Sepsis Screen: Does the patient meet any 2 criteria? No. Patient's initial sepsis screen is negative. Does the patient have a suspected source of infection? No. Patient's initial sepsis screen is negative. Risk Assessment: Do you want to hurt yourself or someone else? Patient reports no desire to harm self or others. Onset of symptoms was February 18, 2024. Transition of care: patient was not received from another setting of care. 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 - Infectious Disease History:: Denies. - Social history:: Smoking status: Patient denies any tobacco usage or history of. - Family history:: not pertinent. - Hospitalizations: : No recent hospitalization is reported. Screenin:08 [facility] ED Fall Risk Assessment (Adult) History of falling in the last 3 months, jb4 including since admission No falls in past 3 months (0 pts) Confusion or Disorientation No (0 pts) Intoxicated or Sedated No (0 pts) Impaired Gait No (0 pts) Mobility Assist Device Used No (0 pt) Altered Elimination No (0 pt) Score/Fall Risk Level 0 - 2 = Low Risk Oriented to surroundings, Maintained a safe environment. Abuse screen: Denies threats or abuse. Nutritional screening: No deficits noted. Tuberculosis screening: No symptoms or risk factors identified. Assessment: 22:08 General: Appears in no apparent distress. comfortable, Behavior is calm, cooperative, jb4 appropriate for age. Pain: Denies pain. Neuro: Level of Consciousness is awake, alert, obeys commands, Oriented to person, place, time, situation. Cardiovascular: Patient's skin is warm and dry. Respiratory: Airway is patent Respiratory effort is even, unlabored, Respiratory pattern is regular, symmetrical. GI: No signs and/or symptoms were reported involving the gastrointestinal system. : No signs and/or symptoms were reported regarding the genitourinary system. EENT: No signs and/or symptoms were reported regarding the EENT system. Derm: Skin is intact, Skin is pink, warm \T\ dry. Musculoskeletal: Circulation, motion, and sensation intact. Range of motion: intact in all extremities. Vital Signs: 22:07 BP 115 / 78; Pulse 80; Resp 16; Temp 97.8(O); Pulse Ox 100% on R/A; Weight 54.43 kg jb4 (R); Height 5 ft. 3 in. (R); Pain 0/10; 02/18 00:00 BP 91 / 63; Pulse 73; Resp 16; Pulse Ox 100% on R/A; pc2 00:43 BP 111 / 73; Pulse 82; Resp 18; Pulse Ox 97% on R/A; pc2 02:15 BP 99 / 66; Pulse 72; Resp 16; Pulse Ox 98% on R/A; pc2 02/17 22:07 Body Mass Index 21.26 (54.43 kg, 160.02 cm) jb4 02/17 22:07 Pain Scale: Adult jb4 ED Course: 02/17 21:48 Patient arrived in ED. jb4 21:48 Rubén Doss MD is Attending Physician. rn 21:53 Triage completed. jb4 21:54 Arm band placed on right wrist. jb4 22:08 Patient has correct armband on for positive identification. Bed in low position. Call jb4 light in reach. Side rails up X 1. Provided Education on: plan of care. 23:23 Mally Zamora, RN is Primary Nurse. pc2 02/18 00:03 No provider procedures requiring assistance completed. pc2 02:15 Patient did not have IV access during this emergency room visit. pc2 Administered Medications: 02/17 22:07 Drug: LORazepam IM 1 mg IM once Route: IM; Site: right deltoid; jb4 22:40 Follow up: Response: No adverse reaction; Anxiety decreased; RASS: Alert and Calm (0) pc2 02/18 00:01 Drug: diphenhydrAMINE IM 50 mg IM once Route: IM; Site: left deltoid; pc2 00:30 Follow up: Response: No adverse reaction pc2 Medication: 02/17 22:08 VIS not applicable for this client. jb4 Outcome: 02/18 00:59 Discharge ordered by . rn 02:15 Condition: stable pc2 02:15 Discharged to home ambulatory, pc2 02:15 Discharge instructions given to patient, Instructed on discharge instructions, follow up and referral plans. Demonstrated understanding of instructions, follow-up care, 02:55 Patient left the ED. pc2 Signatures: Rubén Doss MD MD rn Bryson, James, RN RN jb4 Mally Zamora, RN RN pc2
[2024-02-19 03:12] VITALS: TEMP 97.8
[2024-02-19 03:17] VITALS: BP 99/66; O2SAT 98
== END 2024-02-19 02:55 | disposition home or self-care (01) ==
LOC: ER 21:42
DX: F60.3 Borderline personality disorder (principal); F31.9 Bipolar disorder, unspecified
CPT/HCPCS: J1200

== ENCOUNTER 2024-03-02 12:29 | Emergency (ER) | payer SELFPAY ==
[2024-03-02] MEDS ORDERED: LORAZEPAM 0.5 MG TABLET ONE (12:53)
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
--- NOTE | 2024-03-02 13:34 | EDPHYS ---
Physician Documentation [facility] Name: Vanda Pompa Age: 23 yrs Sex: Female : 2000 Arrival Date: 03/02/2024 Time: 12:29 Bed 13 Private MD: ED Physician Alfonzo Perez HPI: 03/02 13:31 This 23 yrs old Female presents to ER via Ambulatory with complaints of Psych Problem. kb 13:31 Pt is a 23 year old female who presents for being "manic as fuck." Reports multiple psychiatric diagnoses and today she is more manic than normal. States she was prescribed a medication from [facility] that makes her manic episodes worse. Denies SI/HI. . Historical: - Allergies: 12:36 Bees; db 12:36 mosquitos; db - PMHx: 12:36 Anxiety; Asthma; Bipolar disorder; BORDERLINE PERSONALITY DISORDER; Hypothyroidism; db adhd; Ovarian cyst; - PSHx: 12:36 Cholecystectomy; ear surgery; db - Immunization history:: Adult Immunizations. - Infectious Disease History:: Denies. - Social history:: Smoking status: Patient denies any tobacco usage or history of. ROS: 13:04 Constitutional: As per HPI kb Exam: 13:30 Constitutional: This is a well developed, well nourished patient who is awake, alert, kb and in no acute distress. Head/Face: Normocephalic, atraumatic. ENT: Moist Mucous membranes Cardiovascular: Regular rate Respiratory: Respirations even and unlabored. No increased work of breathing. Talking in full sentences Abdomen/GI: Soft, non-tender. No distention Skin: Warm, dry with normal turgor. Normal color. MS/ Extremity: Pulses equal, no cyanosis. Neurovascular intact. Full, normal range of motion. Neuro: Awake and alert, GCS 15, oriented to person, place, time, and situation. Moves all extremities. Normal gait. 13:30 Psych: Behavior/mood is cooperative, Affect is animated, Oriented to person, place, time, Patient has no thoughts/intents to harm self or others. Vital Signs: 12:33 BP 101 / 78; Pulse 105; Resp 18; Temp 98.8; Pulse Ox 95% ; Weight 54.43 kg; Height 5 db ft. 3 in. ; 13:30 BP 106 / 74; Pulse 106; Resp 16; Pulse Ox 99% ; db 12:33 Body Mass Index 21.26 (54.43 kg, 160.02 cm) db MDM: 12:30 Patient medically screened. kb 13:30 Differential diagnosis: acute psychotic break, psychosis secondary to non-compliance, kb manic state. Data reviewed: vital signs, nurses notes. Historians other than the Patient: EMS: [facility]. Counseling: I had a detailed discussion with the patient and/or guardian regarding the historical points, exam findings, and any diagnostic results supporting the discharge/admit diagnosis, the need for outpatient follow up, a family practitioner, to return to the emergency department if symptoms worsen or persist or if there are any questions or concerns that arise at home. ED course: Pt is awake, alert and oriented. Denies suicidal or homicidal ideations. . Administered Medications: 12:56 Drug: LORazepam PO 0.5 mg PO once Route: PO; db 14:09 Follow up: Response: No adverse reaction db 14:09 Follow up: Response: No adverse reaction db Disposition: 14:22 Co-signature as Attending Physician, Alfonzo Perez MD I reviewed the patient's care rt provided by the Advanced Practice Provider and agree with the diagnosis and treatment plan. Chart complete. Chart complete. Disposition Summary: 03/02/24 13:33 Discharge Ordered Notes: Location: Home kb Condition: Stable kb Diagnosis - Manic episode without psychotic symptoms, mild kb Followup: kb - With: Emergency Department - When: As needed - Reason: Worsening of condition Followup: kb - With: Private Physician - When: 2 - 3 days - Reason: Recheck today's complaints, Continuance of care, Re-evaluation by your physician Discharge Instructions: - Discharge Summary Sheet kb - Stephy kb - Managing Bipolar Disorder kb Forms: - Medication Reconciliation Form kb - Antibiotic Education kb - Prescription Opioid Use kb - Patient Portal Instructions kb - Leadership Thank You Letter kb Signatures: Trudi Thomason FNP-C FNP-Ckb Benton, Danielle, RN RN Alfonzo Donovan MD MD rt
[2024-03-02 14:47] VITALS: TEMP 98.8
[2024-03-02 14:50] VITALS: BP 106/74; O2SAT 99
== END 2024-03-02 14:09 | disposition home or self-care (01) ==
LOC: ER 12:29
DX: F30.11 Manic episode without psychotic symptoms, mild (principal)
CPT/HCPCS: 99283

== ENCOUNTER 2024-03-03 17:37 | Emergency (ER) | payer SELFPAY ==
--- NOTE | 2024-03-03 17:43 | EDPHYS ---
Physician Documentation [facility] Name: Vanda Pompa Age: 23 yrs Sex: Female : 2000 Arrival Date: 03/03/2024 Time: 17:37 Bed 19 Private MD: ED Physician Mee Paredes HPI: 03/03 17:39 This 23 yrs old Female presents to ER via Unassigned with complaints of "Wanted to feel sp3 cuts". 17:40 23-year-old female with history borderline personality disorder, bipolar disease sp3 presents to the ED via EMS for superficial lacerations to the left forearm stating that she "just wanted to feel the cuts to feel good". She denies suicidal ideation, homicidal ideation, psychosis, or any other symptoms. Patient is laughing in no acute distress. Cuts have no significant bleeding. Review of systems negative for any somatic symptoms including headache, neck pain, chest pain, shortness of breath, abdominal pain, vomit, diarrhea, rash, or any other signs or symptoms on ROS at this time.. Historical: - Allergies: 17:50 Bees; bp 17:50 mosquitos; bp - PMHx: 17:50 adhd; Anxiety; Asthma; Bipolar disorder; BORDERLINE PERSONALITY DISORDER; bp Hypothyroidism; Ovarian cyst; - PSHx: 17:50 Cholecystectomy; ear surgery; bp - Immunization history:: Adult Immunizations up to date. - Infectious Disease History:: Denies. - Social history:: Smoking status: unknown. ROS: 17:40 Constitutional: Negative for fever, chills, and weight loss, Eyes: Negative for injury, sp3 pain, redness, and discharge, Neck: Negative for injury, pain, and swelling, Cardiovascular: Negative for chest pain, palpitations, and edema, Respiratory: Negative for shortness of breath, cough, wheezing, and pleuritic chest pain, Abdomen/GI: Negative for abdominal pain, nausea, vomiting, diarrhea, and constipation, Back: Negative for injury and pain, Neuro: Negative for headache, weakness, numbness, tingling, and seizure, Allergy/Immunology: Negative for hives, rash, and allergies, Endocrine: Negative for neck swelling, polydipsia, polyuria, polyphagia, and marked weight changes, Hematologic/Lymphatic: Negative for swollen nodes, abnormal bleeding, and unusual bruising, 17:40 All other systems are negative, Exam: 17:41 Constitutional: This is a well developed, well nourished patient who is awake, alert, sp3 and in no acute distress. Head/Face: Normocephalic, atraumatic. Eyes: Pupils equal round and reactive to light, extra-ocular motions intact. Lids and lashes normal. Conjunctiva and sclera are non-icteric and not injected. Cornea within normal limits. Periorbital areas with no swelling, redness, or edema. Neck: Trachea midline, no thyromegaly or masses palpated, and no cervical lymphadenopathy. Supple, full range of motion without nuchal rigidity, or vertebral point tenderness. No Meningismus. Chest/axilla: Normal chest wall appearance and motion. Nontender with no deformity. No lesions are appreciated. Cardiovascular: Regular rate and rhythm with a normal S1 and S2. No gallops, murmurs, or rubs. Normal PMI, no JVD. No pulse deficits. Respiratory: Lungs have equal breath sounds bilaterally, clear to auscultation and percussion. No rales, rhonchi or wheezes noted. No increased work of breathing, no retractions or nasal flaring. Abdomen/GI: Soft, non-tender, with normal bowel sounds. No distension or tympany. No guarding or rebound. No evidence of tenderness throughout. Back: No spinal tenderness. No costovertebral tenderness. Full range of motion. Skin: Warm, dry with normal turgor. Normal color with no rashes, no lesions, and no evidence of cellulitis. MS/ Extremity: Pulses equal, no cyanosis. Neurovascular intact. Full, normal range of motion. Neuro: Awake and alert, GCS 15, oriented to person, place, time, and situation. Cranial nerves II-XII grossly intact. Motor strength 5/5 in all extremities. Sensory grossly intact. Cerebellar exam normal. Normal gait. 17:41 Musculoskeletal/extremity: 6 superficial lacerations on the left forearm none requiring repair.. 17:41 Psych: Patient not suicidal, homicidal, or psychotic. Patient does not appear to be responding to internal stimuli.. Vital Signs: 17:48 BP 121 / 67; Pulse 75; Resp 18; Temp 98; Pulse Ox 99% ; bp MDM: 17:39 Patient medically screened. sp3 17:41 Data reviewed: vital signs, nurses notes. ED course: Will clean and dress wounds. sp3 Patient states that again she is not suicidal or homicidal and just wanted to feel good from the pain secondary to stress that she has been having at home. We will discharge home at this time with clean dressings to the wound. Tetanus is up-to-date.. 03/03 17:42 Order name: Dressing - Wound; Complete Time: 17:52 sp3 Administered Medications: No medications were administered Disposition Summary: 03/03/24 17:43 Discharge Ordered Notes: Location: Home sp3 Condition: Stable sp3 Diagnosis - Superficial lacerations to left forearm, self-harm sp3 Followup: sp3 - With: Private Physician - When: Upon discharge from the Emergency Department - Reason: Continuance of care Discharge Instructions: - Discharge Summary Sheet sp3 - Self-Harming Behavior Information sp3 Forms: - Medication Reconciliation Form sp3 - Antibiotic Education sp3 - Prescription Opioid Use sp3 - Patient Portal Instructions sp3 - Leadership Thank You Letter sp3 Signatures: Isreal Blakely RN RN Mee Leblanc MD MD sp3
--- NOTE | 2024-03-03 17:53 | ER ---
Nurse's Notes [facility] Name: Vanda Pompa Age: 23 yrs Sex: Female : 2000 Arrival Date: 03/03/2024 Time: 17:37 Bed 19 Private MD: Diagnosis: Superficial lacerations to left forearm, self-harm Presentation: 03/03 17:48 Chief complaint: EMS states: "SHE DECIDED SHE WANTED TO HURT HERSELF WHEN SHE GOT bp BUSTED VIOLATING PROBATION. SHE PUT SOME SCRATCHES ON HER ARM". Coronavirus screen: At this time, the client does not indicate any symptoms associated with coronavirus-19. Ebola Screen: No symptoms or risks identified at this time. Initial Sepsis Screen: Does the patient meet any 2 criteria? No. Patient's initial sepsis screen is negative. Does the patient have a suspected source of infection? No. Patient's initial sepsis screen is negative. Risk Assessment: Do you want to hurt yourself or someone else? Patient reports no desire to harm self or others. 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 Onset of symptoms is unknown. 17:48 Method Of Arrival: EMS: [facility] bp 17:48 Acuity: FREDY 5 bp Triage Assessment: 17:50 General: Appears in no apparent distress. Behavior is cooperative, appropriate for age, bp anxious. Pain: Denies pain. EENT: No deficits noted. Neuro: No deficits noted. Cardiovascular: No deficits noted. Injury Description: SUPERFICIAL SCRATCHES ON FA. Historical: - Allergies: 17:50 Bees; bp 17:50 mosquitos; bp - PMHx: 17:50 adhd; Anxiety; Asthma; Bipolar disorder; BORDERLINE PERSONALITY DISORDER; bp Hypothyroidism; Ovarian cyst; - PSHx: 17:50 Cholecystectomy; ear surgery; bp - Immunization history:: Adult Immunizations up to date. - Infectious Disease History:: Denies. - Social history:: Smoking status: unknown. Screenin:51 [facility] ED Fall Risk Assessment (Adult) History of falling in the last 3 months, bp including since admission No falls in past 3 months (0 pts) Confusion or Disorientation No (0 pts) Intoxicated or Sedated No (0 pts) Impaired Gait No (0 pts) Mobility Assist Device Used No (0 pt) Altered Elimination No (0 pt) Score/Fall Risk Level 0 - 2 = Low Risk. Abuse screen: Denies threats or abuse. Denies injuries from another. Nutritional screening: No deficits noted. Tuberculosis screening: No symptoms or risk factors identified. Assessment: 17:51 General: PT NOT IN CUSTODY. bp Vital Signs: 17:48 BP 121 / 67; Pulse 75; Resp 18; Temp 98; Pulse Ox 99% ; bp ED Course: 17:38 Patient arrived in ED. sb4 17:39 Isreal Blakely, RN is Primary Nurse. bp 17:39 Mee Paredes MD is Attending Physician. sp3 17:50 Triage completed. bp 17:50 Arm band placed on. bp 17:51 Patient has correct armband on for positive identification. bp 17:51 No provider procedures requiring assistance completed. Patient did not have IV access bp during this emergency room visit. Administered Medications: No medications were administered Medication: 17:51 VIS not applicable for this client. bp Outcome: 17:43 Discharge ordered by . sp3 17:51 Discharged to home ambulatory, bp 17:51 Condition: stable 17:51 Discharge instructions given to patient, Instructed on discharge instructions, follow up and referral plans. Demonstrated understanding of instructions, follow-up care, 17:52 Patient left the ED. bp Signatures: Isreal Blakely RN RN bp Mee Paredes MD MD sp3 Nanci Alvarado, PA-C PA-C sb4
[2024-03-03 19:09] VITALS: BP 121/67; TEMP 98; O2SAT 99
== END 2024-03-03 17:52 | disposition home or self-care (01) ==
LOC: ER 17:37
DX: S51.812A Laceration without foreign body of left forearm, initial encounter (principal); X78.9XXA Intentional self-harm by unspecified sharp object, initial encounter; F31.9 Bipolar disorder, unspecified; F60.9 Personality disorder, unspecified
CPT/HCPCS: 99283

== ENCOUNTER 2024-03-03 18:45 | Emergency (ER) | payer SELFPAY ==
--- NOTE | 2024-03-03 19:34 | EDPHYS ---
Physician Documentation [facility] Name: Vanda Pompa Age: 23 yrs Sex: Female : 2000 Arrival Date: 03/03/2024 Time: 18:45 Bed 18 Private MD: ED Physician Henri Moreno HPI: 03/03 19:35 This 23 yrs old Female presents to ER via Unassigned with complaints of LUPE. ec2 19:35 Patient arrives today with history of psychiatric disease, bipolar disorder, placed on ec2 an LUPE. Patient denies suicidality, states that she stated, due to PD to placed on LUPE because she wanted to get away from home tonight. Patient asking for a dose of Ativan so she can calm her nerves and tolerate being at home.. 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 - Infectious Disease History:: Denies. - Social history:: Smoking status: unknown. ROS: 19:35 Constitutional: as per hpi ec2 Exam: 19:35 Constitutional: GEN: NAD Head: atraumatic Eyes: EOMI Ears: External ears are ec2 normal. CV: regular rate LUNGS: no respiratory distress ABD: non-distended SKIN: no evidence of rashes MSK: no evidence of trauma. Psych: Well-appearing cooperative individual is otherwise in no acute distress with no suicidality or homicidality. Vital Signs: 19:00 Weight 54.43 kg; Height 5 ft. 3 in. ; vc1 19:02 BP 111 / 71; Pulse 97; Resp 17; Temp 97.8(O); Pulse Ox 100% on R/A; Pain 0/10; rg5 19:00 Body Mass Index 21.26 (54.43 kg, 160.02 cm) vc1 19:02 Pain Scale: Adult rg5 Sher Coma Score: 19:02 Eye Response: spontaneous(4). Motor Response: obeys commands(6). Verbal Response: rg5 oriented(5). Total: 15. MDM: 19:26 Patient medically screened. ec2 19:35 Data reviewed: vital signs. ED course: Patient arrives today on an LUPE for psychiatric ec2 evaluation. Patient is on imminent threat to herself or others and denies suicidality with no active plan and states that she is attention seeking and looking for dose of Ativan. States her goal is to be out of her home for the night. I do not feel emergency care is the best place for her tonight and feel she is appropriate for discharge. Will discharge home. Return precautions given.. Administered Medications: 19:35 Drug: LORazepam PO 2 mg PO once Route: PO; bp 20:02 Follow up: Response: No adverse reaction bp Disposition Summary: 03/03/24 19:34 Discharge Ordered Notes: Location: Home ec2 Condition: Stable ec2 Diagnosis - Psychiatric Evaluation, Medication Refill Question ec2 Followup: ec2 - With: Private Physician - When: - Reason: Re-evaluation by your physician Discharge Instructions: - Discharge Summary Sheet ec2 Forms: - Medication Reconciliation Form ec2 - Antibiotic Education ec2 - Prescription Opioid Use ec2 - Patient Portal Instructions ec2 - Leadership Thank You Letter ec2 Signatures: Isreal Blakely RN RN bp Henri Moreno MD MD ec2
[2024-03-03] MEDS ORDERED: LORAZEPAM 1 MG TABLET ONE (19:42)
--- NOTE | 2024-03-03 20:14 | ER ---
Nurse's Notes [facility] Name: Vanda Pompa Age: 23 yrs Sex: Female : 2000 Arrival Date: 03/03/2024 Time: 18:45 Bed 18 Private MD: Diagnosis: Psychiatric Evaluation, Medication Refill Question Presentation: 03/03 19:00 Chief complaint: Pt seen previously today and requested to stay the night. Pt was vc1 discharged. Pt called PD to get an LUPE on herself. When pt re registered she told registration that we now had to keep her overnight because she has an LUPE. 19:00 Coronavirus screen: Client denies travel out of the [place] in the last 14 days. At this vc1 time, the client does not indicate any symptoms associated with coronavirus-19. Ebola Screen: Patient negative for fever greater than or equal to 101.5 degrees Fahrenheit, and additional compatible Ebola Virus Disease symptoms Patient denies exposure to infectious person. Patient denies travel to an Ebola-affected area in the 21 days before illness onset. No symptoms or risks identified at this time. Initial Sepsis Screen: Does the patient meet any 2 criteria? No. Patient's initial sepsis screen is negative. Does the patient have a suspected source of infection? No. Patient's initial sepsis screen is negative. Risk Assessment: Do you want to hurt yourself or someone else?. Onset of symptoms is unknown. 19:00 Method Of Arrival: Law Enforcement: [place] vc1 19:00 Acuity: FREDY 2 vc1 Triage Assessment: 19:02 General: Behavior is calm, cooperative, appropriate for age. rg5 19:10 General: Appears in no apparent distress. Pain: Denies pain. 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 - Infectious Disease History:: Denies. - Social history:: Smoking status: unknown. Screenin:[address] [facility] Fall Risk Assessment (Adult) History of falling in the last 3 months, vc1 including since admission No falls in past 3 months (0 pts) Confusion or Disorientation No (0 pts) Intoxicated or Sedated No (0 pts) Impaired Gait No (0 pts) Mobility Assist Device Used No (0 pt) Altered Elimination No (0 pt) Score/Fall Risk Level 0 - 2 = Low Risk Oriented to surroundings, Maintained a safe environment, Educated pt \T\ family on fall prevention, incl call for assistance when getting out of bed. Abuse screen: Denies threats or abuse. Nutritional screening: No deficits noted. Tuberculosis screening: No symptoms or risk factors identified. Assessment: 19:02 General: Pt in ER lobby with officers until placed in bed at 1902. vc1 19:15 General: Pt states she is not suicidal that she just doesn't want to be home tonight. vc1 19:15 General: Pt not on suicide precautions per Medical Provider, pt does not have any vc1 suicidal ideations. . Vital Signs: 19:00 Weight 54.43 kg; Height 5 ft. 3 in. ; vc1 19:02 BP 111 / 71; Pulse 97; Resp 17; Temp 97.8(O); Pulse Ox 100% on R/A; Pain 0/10; rg5 19:00 Body Mass Index 21.26 (54.43 kg, 160.02 cm) vc1 19:02 Pain Scale: Adult rg5 [place] Coma Score: 19:02 Eye Response: spontaneous(4). Motor Response: obeys commands(6). Verbal Response: rg5 oriented(5). Total: 15. ED Course: 18:46 Patient arrived in ED. im 19:05 Safety Checks: Personal items have been removed. The door is open or patient has been bp placed in a hallway bed/chair. A family member and/or friend is present and encouraged to stay. Sitter present at this time. 19:05 Isreal Blakely, OLGA is Primary Nurse. rg5 19:05 Patient has correct armband on for positive identification. Bed in low position. Call bp light in reach. Side rails up X 1. 19:05 No provider procedures requiring assistance completed. Patient did not have IV access bp during this emergency room visit. 19:07 Henri Moreno MD is Attending Physician. ec2 19:10 Arm band placed on. rg5 19:43 Triage completed. vc1 20:13 Provided Education on: FF-UP WITH PSYCH. rg5 Administered Medications: 19:35 Drug: LORazepam PO 2 mg PO once Route: PO; bp 20:02 Follow up: Response: No adverse reaction bp Medication: 19:05 VIS not applicable for this client. bp Outcome: 19:34 Discharge ordered by . ec2 19:55 Discharged to home ambulatory, with family, rg5 19:55 Condition: stable 19:55 Discharge instructions given to patient, family, Instructed on discharge instructions, follow up and referral plans. Demonstrated understanding of instructions, follow-up care, 20:14 Patient left the ED. rg5 Signatures: Isreal Blakely, RN RN bp Rhina Galeano RN RN vc1 Sindi Samuels Edwin, MD MD ec2 Saul Holliday RN RN rg5 Corrections: (The following items were deleted from the chart) 19:45 19:38 General: Pt states she is not suicidal that she just doesn't want to be home vc1 kuldeep. vc1 20:12 20:02 Isreal Blakely, RN is Primary Nurse. bp rg5
[2024-03-03 20:22] VITALS: BP 111/71; TEMP 97.8; O2SAT 100
== END 2024-03-03 20:14 | disposition home or self-care (01) ==
LOC: ER 18:45
DX: Z04.6 Encounter for general psychiatric examination, requested by authority (principal); Z76.0 Encounter for issue of repeat prescription; F60.9 Personality disorder, unspecified; F31.9 Bipolar disorder, unspecified
CPT/HCPCS: 99283

== ENCOUNTER → 2024-03-03 | Emergency (ER) | payer SELFPAY | LOC: ER 18:11 | DX: Z02.9 Encounter for administrative examinations, unspecified (principal) ==

== ENCOUNTER 2024-03-04 23:09 | Emergency (ER) | payer SELFPAY ==
--- NOTE | 2024-03-04 23:51 | ER ---
Nurse's Notes [facility] Name: Vanda Pompa Age: 23 yrs Sex: Female : 2000 Arrival Date: 03/04/2024 Time: 23:09 Bed 20 Private MD: Diagnosis: Unspecified disorder of adult personality and behavior Presentation: 03/04 23:09 Chief complaint: Patient states: i have been having a manic episode for the last 3 lg3 days. i called [place] police for someone to talk to and they brought me here on an LUPE. i do not want to hurt myself or anyone else. Coronavirus screen: Client denies travel out of the [place] in the last 14 days. At this time, the client does not indicate any symptoms associated with coronavirus-19. Ebola Screen: No symptoms or risks identified at this time. Initial Sepsis Screen: Does the patient meet any 2 criteria? No. Patient's initial sepsis screen is negative. Does the patient have a suspected source of infection? No. Patient's initial sepsis screen is negative. Risk Assessment: Do you want to hurt yourself or someone else? Patient reports no desire to harm self or others. Onset of symptoms was March 03, 2024. 23:09 Method Of Arrival: Law Enforcement: [place] [employer] lg3 23:09 Acuity: FREDY 2 lg3 Triage Assessment: 23:09 General: Appears in no apparent distress. comfortable, Behavior is anxious, restless. lg3 Pain: Denies pain. EENT: No deficits noted. No signs and/or symptoms were reported regarding the EENT system. Neuro: No deficits noted. Perez Agitation-Sedation Scale (RASS): +1 Restless. Cardiovascular: No deficits noted. Denies chest pain, shortness of breath, Capillary refill < 3 seconds Clubbing of nail beds is absent JVD is absent Patient's skin is warm and dry. Respiratory: No deficits noted. Airway is patent Respiratory effort is even, unlabored, Respiratory pattern is regular, symmetrical. GI: No deficits noted. No signs and/or symptoms were reported involving the gastrointestinal system. : No deficits noted. No signs and/or symptoms were reported regarding the genitourinary system. Derm: Skin is intact, is healthy with good turgor, Skin is dry, Skin is normal, Skin temperature is warm Wound noted left arm Wound is linear abrasions noted to left arm from previous self harm. Musculoskeletal: No deficits noted. No signs and/or symptoms reported regarding the musculoskeletal system. Circulation, motion, and sensation intact. Range of motion: intact in all extremities. 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 - Infectious Disease History:: Denies. - Social history:: Smoking status: Reported history of juuling and/or vaping. Patient/guardian denies using alcohol, street drugs. Screenin:09 [facility] ED Fall Risk Assessment (Adult) History of falling in the last 3 months, lg3 including since admission No falls in past 3 months (0 pts) Confusion or Disorientation No (0 pts) Intoxicated or Sedated No (0 pts) Impaired Gait No (0 pts) Mobility Assist Device Used No (0 pt) Altered Elimination Yes (1 pt) Score/Fall Risk Level 0 - 2 = Low Risk Oriented to surroundings, Maintained a safe environment, Educated pt \\T\\ family on fall prevention, incl call for assistance when getting out of bed, Assessed \\T\\ reinforced patient's understanding of fall precautions, Provided non-skid footwear. Abuse screen: Denies threats or abuse. Denies injuries from another. Nutritional screening: No deficits noted. Tuberculosis screening: No symptoms or risk factors identified. Assessment: 23:09 General: see triage assessment. lg3 Psych: 23:09 [place] Suicide Severity Screening: In the past month, have you wished you were lg3 or wished you could go to sleep and not wake up? Patient responds "No." "In the past month, have you actually had any thoughts of killing yourself?" Patient responds "no." "In your lifetime, have you ever done anything, started to do anything, or prepared to do anything to end your life?" Patient responds "yes." Patient reports suicidal intent occurred greater than 3 months prior. Subjective: Patient's mood is sad, Delusions are denied, Hallucinations are denied. Objective: Patient is guarded, irritable, suspicious, Speech is normal, Affect is appropriate. Interventions: Removed personal items and placed in bag. Patient placed in hospital gown. Searched person for dangerous items. Belonging list filled out. Safety Checks: Personal items have been removed. Door is open. No visitors are present at this time. Pt denies substance abuse. Commitment: Patient will be an involuntary commitment. Commitment papers completed. 03/05 00:10 [place] Suicide Severity Screening: In the past month, have you wished you were pc2 or wished you could go to sleep and not wake up? Patient responds "No." "In the past month, have you actually had any thoughts of killing yourself?" Patient responds "no." "In your lifetime, have you ever done anything, started to do anything, or prepared to do anything to end your life?" Patient responds "yes." Patient reports suicidal intent occurred greater than 3 months prior. Objective: Patient is cooperative, Speech is normal, Affect is appropriate. Safety Checks: Personal items have been removed. Door is open. Pt denies substance abuse. Vital Signs: 03/04 23:34 BP 114 / 80; Pulse 98; Resp 16; Temp 97.5; Pulse Ox 99% on R/A; Weight 54.43 kg; Height ty 5 ft. 3 in. ; Pain 3/10; 03/05 00:22 BP 92 / 66; Pulse 78; Resp 13; Temp 96.9; Pulse Ox 100% on R/A; Pain 2/10; ty 03/04 23:34 Body Mass Index 21.26 (54.43 kg, 160.02 cm) ty 03/04 23:34 Pain Scale: Adult ty 03/05 00:22 Pain Scale: Adult ty ED Course: 03/04 23:09 Safety Checks: Personal items have been removed. The door is open or patient has been lg3 placed in a hallway bed/chair. There are no family/friend visitors at this time Sitter present at this time. 23:09 Arm band placed on right wrist. Patient placed in an exam room. lg3 23:09 Patient has correct armband on for positive identification. Bed in low position. lg3 Valuables inventory done. See valuables checklist. 23:11 Patient arrived in ED. rv1 23:17 Henri Moreno MD is Attending Physician. ec2 23:36 Alessandra Booth, RN is Primary Nurse. lg3 23:41 Triage completed. lg3 23:53 No provider procedures requiring assistance completed. Patient did not have IV access pc2 during this emergency room visit. 23:54 Provided Education on: f/u instructions. pc2 Administered Medications: No medications were administered Medication: 23:54 VIS not applicable for this client. pc2 Outcome: 23:50 Discharge ordered by . ec2 23:53 Discharged to home ambulatory, pc2 23:53 Condition: stable 23:53 Discharge instructions given to patient, Instructed on discharge instructions, follow up and referral plans. Demonstrated understanding of instructions, follow-up care, 03/05 00:28 Patient left the ED. pc2 Signatures: Alessandra Booth, RN RN lg3 Anabel Jacobs rv1 Henri Moreno MD MD ec2 Aldo Nieves Pam, RN RN pc2
--- NOTE | 2024-03-04 23:51 | EDPHYS ---
Physician Documentation [facility] Name: Vanda Pompa Age: 23 yrs Sex: Female : 2000 Arrival Date: 03/04/2024 Time: 23:09 Bed 20 Private MD: ED Physician Henri Moreno HPI: 03/04 23:40 This 23 yrs old Female presents to ER via Unassigned with complaints of LUPE. ec2 23:40 Patient arrives today on an LUPE. Patient states that she called PD because she wanted ec2 "someone to talk to ". Patient denies any suicidality. Patient reports no ingestion, denies any concerns.. 23:41 Patient was here yesterday x 2, had some soft cutting behavior, I saw her last night as ec2 well, patient denies suicidality. Again tonight patient is looking for a place to stay that outside the home. States that she would like to spend the night with us to be discharged in the morning. Patient has no specific complaints or concerns. 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 - Infectious Disease History:: Denies. - Social history:: Smoking status: Reported history of juuling and/or vaping. Patient/guardian denies using alcohol, street drugs. ROS: 23:41 Constitutional: as per hpi ec2 Exam: 23:41 Constitutional: GEN: NAD Head: atraumatic Eyes: EOMI Ears: External ears are ec2 normal. CV: regular rate LUNGS: no respiratory distress ABD: non-distended SKIN: no evidence of rashes MSK: no evidence of trauma. Psych: Cooperative individual denies suicidal Vital Signs: 23:34 BP 114 / 80; Pulse 98; Resp 16; Temp 97.5; Pulse Ox 99% on R/A; Weight 54.43 kg; Height ty 5 ft. 3 in. ; Pain 3/; 03/05 00:22 BP 92 / 66; Pulse 78; Resp 13; Temp 96.9; Pulse Ox 100% on R/A; Pain 2/10; ty 03/04 23:34 Body Mass Index 21.26 (54.43 kg, 160.02 cm) ty 03/04 23:34 Pain Scale: Adult ty 03/05 00:22 Pain Scale: Adult ty MDM: 03/04 23:17 Patient medically screened. ec2 23:41 Data reviewed: vital signs. ED course: Patient arrives on LUPE. Patient denies ec2 suicidality is cooperative and is well-appearing in no acute distress. Patient specifically is in no acute distress with reassuring vital signs with no evidence of new injury.. 23:43 ED course: Ultimately I have a low suspicion for actual suicidal behavior given the ec2 patient's recurrent visits, her lack of plan and her history. Patient ultimately has poor social support system at home which is what I suspect is ultimately driving the patient's recurrent visits to the emergency department. I do not feel patient is an imminent threat to herself or others at this time and I feel patient is appropriate for discharge home.. Administered Medications: No medications were administered Disposition Summary: 03/04/24 23:50 Discharge Ordered Notes: Location: Home ec2 Condition: Stable ec2 Diagnosis - Unspecified disorder of adult personality and behavior ec2 Followup: ec2 - With: Private Physician - When: - Reason: Re-evaluation by your physician Discharge Instructions: - Discharge Summary Sheet ec2 - Self-Harming Behavior Information ec2 Forms: - Medication Reconciliation Form ec2 - Antibiotic Education ec2 - Prescription Opioid Use ec2 - Patient Portal Instructions ec2 - Leadership Thank You Letter ec2 Signatures: Alessandra Booth RN RN 3 Henri Moreno MD MD ec2
[2024-03-05 00:44] VITALS: BP 92/66; TEMP 96.9; O2SAT 100
== END 2024-03-05 00:28 | disposition home or self-care (01) ==
LOC: ER 23:09
DX: F69 Unspecified disorder of adult personality and behavior (principal)
CPT/HCPCS: 99284

== ENCOUNTER 2024-03-10 01:34 | Emergency (ER) | payer SELFPAY ==
[2024-03-10] MEDS ORDERED: KETOROLAC 30 MG/ML INJ ONE (02:07)
[2024-03-10] MEDS ORDERED: PROMETHAZINE INJ 25 MG/ML AMP ONE (02:07)
[2024-03-10] MEDS ORDERED: MORPHINE 4 MG/ML SYR ONE (02:08)
[2024-03-10] MEDS ORDERED: NA CHLORIDE 0.9% 1,000 ML ONE ×2 (02:08→04:03)
[2024-03-10] MEDS ORDERED: LORazepam 2 MG/ML VIAL ONE (04:02)
--- NOTE | 2024-03-10 06:41 | EDPHYS ---
Physician Documentation [facility] Name: Vanda oPmpa Age: 23 yrs Sex: Female : 2000 Arrival Date: 03/10/2024 Time: 01:34 Bed 20 Private MD: ED Physician Rubén Doss HPI: 03/10 02:04 This 23 yrs old Female presents to ER via EMS with complaints of Headache. rn 02:04 The patient complains of pain to the forehead. The patient describes the headache as rn aching, throbbing. Onset: The symptoms/episode began/occurred 3 day(s) ago. Associated signs and symptoms: Pertinent positives: nausea, vomiting, Pertinent negatives: altered mental status, fever, neck stiffness, vision loss. Severity of symptoms: At its worst the pain was moderate, "similar to past headaches". The symptoms are alleviated by nothing. the symptoms are aggravated by lights. The patient has experienced similar episodes in the past. Patient reports 3 days of migraine, not improving. Has chronic migraines. Right-sided headache associated with nausea and vomiting and light sensitivity. Does not feel ill. No fever. No neck stiffness. Feels identical to previous migraines just not improving with Motrin at home.. Historical: - Allergies: 01:48 Bees; jb4 01:48 mosquitos; jb4 - PMHx: 01:48 adhd; Anxiety; Asthma; Bipolar disorder; BORDERLINE PERSONALITY DISORDER; jb4 Hypothyroidism; Ovarian cyst; - PSHx: 01:48 Cholecystectomy; ear surgery; jb4 - Immunization history:: Adult Immunizations up to date. - Infectious Disease History:: Denies. - Social history:: Smoking status: Reported history of juuling and/or vaping. - Family history:: not pertinent. - Hospitalizations: : No recent hospitalization is reported. ROS: 02:04 Constitutional: Negative for fever, chills, and weight loss, Neck: Negative for injury, rn pain, and swelling, Cardiovascular: Negative for chest pain, palpitations, and edema, Respiratory: Negative for shortness of breath, cough, wheezing, and pleuritic chest pain, Abdomen/GI: Positive for nausea and vomiting MS/Extremity: Negative for injury and deformity, Skin: Negative for injury, rash, and discoloration, Neuro: Positive for headache Exam: 02:04 Constitutional: This is a well developed, well nourished patient who is awake, alert, rn and in no acute distress. Head/Face: Normocephalic, atraumatic. Neuro: Awake and alert, GCS 15, oriented to person, place, time, and situation. Cranial nerves II-XII grossly intact. Motor strength 5/5 in all extremities. Sensory grossly intact. 03:49 ECG was reviewed by the Attending Physician. rn Vital Signs: 01:43 BP 126 / 85; Pulse 77; Resp 16; Temp 98.2; Pulse Ox 100% on R/A; jb4 03:41 BP 92 / 63; Pulse 59; Resp 16; Pulse Ox 100% on R/A; jb4 05:00 BP 91 / 53; Pulse 71; Resp 16; Pulse Ox 100% on R/A; jb4 06:00 BP 93 / 59; Pulse 60; Resp 16; Pulse Ox 99% on R/A; jb4 [place] Coma Score: 06:38 Eye Response: spontaneous(4). Motor Response: obeys commands(6). Verbal Response: rn oriented(5). Total: 15. MDM: 01:44 Patient medically screened. rn 06:38 Differential diagnosis: migraine, tension headache, vasomotor headache. Data reviewed: rn vital signs, nurses notes, and as a result, I will discharge patient. Counseling: I had a detailed discussion with the patient and/or guardian regarding the historical points, exam findings, and any diagnostic results supporting the discharge/admit diagnosis, the need for outpatient follow up, to return to the emergency department if symptoms worsen or persist or if there are any questions or concerns that arise at home. Response to treatment: the patient's symptoms have markedly improved after treatment, and as a result, I will discharge patient. ED course: Patient has been resting comfortably, no acute distress. Migraine improved. Will discharge home with return precautions.. 03/10 01:51 Order name: IV Start; Complete Time: 02:19 rn 03/10 03:35 Order name: EKG - Nurse/Tech; Complete Time: 03:51 rn EC:49 Rate is 76 beats/min. Rhythm is regular. QRS [place] is Normal. [place] interval is normal. QRS rn interval is normal. QT interval is normal. No Q waves. T waves are Normal. No ST changes noted. Clinical impression: NSR w/ Non-specific ST/T Changes. Interpreted by me. Reviewed by me. Administered Medications: 02:18 Drug: Ketorolac IVP 15 mg IVP once Route: IVP; Site: right wrist; jb4 02:19 Drug: morphine IVP or IV 4 mg IVP once over 4 mins Route: IVP; Infused Over: 4 mins; jb4 Site: right wrist; 02:19 Drug: Promethazine IVP 12.5 mg IVP once Route: IVP; Site: right wrist; jb4 02:19 Drug: NS 0.9% IV 1000 ml IV at 1000 ml once Route: IV; Rate: 1000 ml; Site: right wrist;jb4 04:08 Drug: Ativan IVP 1 mg IVP once Route: IVP; Site: right wrist; jb4 04:08 Drug: NS 0.9% IV 1000 ml IV at 1000 ml once Route: IV; Rate: 1000 ml; Site: right wrist;jb4 Disposition Summary: 03/10/24 06:41 Discharge Ordered Notes: Location: Home rn Problem: new rn Symptoms: have improved rn Condition: Stable rn Diagnosis - Headache rn Followup: rn - With: Private Physician - When: As needed - Reason: Recheck today's complaints, Re-evaluation by your physician Discharge Instructions: - Discharge Summary Sheet rn - Migraine Headache rn Forms: - Medication Reconciliation Form rn - Antibiotic software intern - Prescription Opioid Use rn - Patient Portal Instructions rn - Leadership Thank You Letter rn Signatures: Rubén Doss MD MD rn Bryson, James, RN RN jb4
--- NOTE | 2024-03-10 06:41 | ER ---
Nurse's Notes [facility] Name: Vanda Pompa Age: 23 yrs Sex: Female : 2000 Arrival Date: 03/10/2024 Time: 01:34 Bed 20 Private MD: Diagnosis: Headache Presentation: 03/10 01:43 Chief complaint: EMS states: Pt reports Nausea, Diarrhea, and a Headache for the past 3 jb4 days with no relief. Coronavirus screen: At this time, the client does not indicate any symptoms associated with coronavirus-19. Ebola Screen: No symptoms or risks identified at this time. Initial Sepsis Screen: Does the patient meet any 2 criteria? No. Patient's initial sepsis screen is negative. Does the patient have a suspected source of infection? No. Patient's initial sepsis screen is negative. Risk Assessment: Do you want to hurt yourself or someone else? Patient reports no desire to harm self or others. Onset of symptoms was March 10, 2024. Transition of care: patient was not received from another setting of care. 01:43 Method Of Arrival: EMS: [facility] 01:43 Acuity: FREDY 3 jb4 Triage Assessment: 01:48 Headache History: The patient has had previous headaches and this one is similar to jb4 previous episodes. General: Appears in no apparent distress. comfortable, Behavior is calm, cooperative, appropriate for age. Pain: Complains of pain in headache. Pain does not radiate. Pain currently is 8 out of 10 on a pain scale. Quality of pain is described as sharp, Pain began 2-3 days ago. Also complains of photophobia. EENT: No signs and/or symptoms were reported regarding the EENT system. Neuro: Level of Consciousness is awake, alert, obeys commands, Oriented to person, place, time, situation. Cardiovascular: Patient's skin is warm and dry. Respiratory: Airway is patent Respiratory effort is even, unlabored, Respiratory pattern is regular, symmetrical. GI: Reports diarrhea, nausea. : No signs and/or symptoms were reported regarding the genitourinary system. Derm: Skin is intact, Skin is pink, warm \T\ dry. Musculoskeletal: Circulation, motion, and sensation intact. Range of motion: intact in all extremities. Historical: - Allergies: 01:48 Bees; jb4 01:48 mosquitos; jb4 - PMHx: 01:48 adhd; Anxiety; Asthma; Bipolar disorder; BORDERLINE PERSONALITY DISORDER; jb4 Hypothyroidism; Ovarian cyst; - PSHx: 01:48 Cholecystectomy; ear surgery; jb4 - Immunization history:: Adult Immunizations up to date. - Infectious Disease History:: Denies. - Social history:: Smoking status: Reported history of juuling and/or vaping. - Family history:: not pertinent. - Hospitalizations: : No recent hospitalization is reported. Screenin:59 [facility] ED Fall Risk Assessment (Adult) History of falling in the last 3 months, jb4 including since admission No falls in past 3 months (0 pts) Confusion or Disorientation No (0 pts) Intoxicated or Sedated No (0 pts) Impaired Gait No (0 pts) Mobility Assist Device Used No (0 pt) Altered Elimination No (0 pt) Score/Fall Risk Level 0 - 2 = Low Risk Oriented to surroundings, Maintained a safe environment. Abuse screen: Denies threats or abuse. Nutritional screening: No deficits noted. Tuberculosis screening: No symptoms or risk factors identified. Assessment: 03:39 Reassessment: Patient appears in no apparent distress at this time. Patient and/or jb4 family updated on plan of care and expected duration. Pain level reassessed. Patient is alert, oriented x 3, equal unlabored respirations, skin warm/dry/pink. 04:30 Reassessment: Pt resting in bed with eyes closed, respirations are even and unlabored jb4 with no s/s of pain or distress noted. 05:30 Reassessment: Patient appears in no apparent distress at this time. No changes from jb4 previously documented assessment. Patient and/or family updated on plan of care and expected duration. Pain level reassessed. 06:37 Reassessment: Patient appears in no apparent distress at this time. No changes from jb4 previously documented assessment. Patient and/or family updated on plan of care and expected duration. Pain level reassessed. Vital Signs: 01:43 BP 126 / 85; Pulse 77; Resp 16; Temp 98.2; Pulse Ox 100% on R/A; jb4 03:41 BP 92 / 63; Pulse 59; Resp 16; Pulse Ox 100% on R/A; jb4 05:00 BP 91 / 53; Pulse 71; Resp 16; Pulse Ox 100% on R/A; jb4 06:00 BP 93 / 59; Pulse 60; Resp 16; Pulse Ox 99% on R/A; jb4 Sher Coma Score: 06:38 Eye Response: spontaneous(4). Motor Response: obeys commands(6). Verbal Response: rn oriented(5). Total: 15. ED Course: 01:35 Patient arrived in ED. jj6 01:44 Rubén Doss MD is Attending Physician. rn 01:48 Triage completed. jb4 02:00 Inserted saline lock: 20 gauge in right wrist, using aseptic technique. jb4 06:59 No provider procedures requiring assistance completed. IV discontinued, intact, jb4 bleeding controlled, No redness/swelling at site. Pressure dressing applied. 06:59 Arm band placed on right wrist. jb4 06:59 Patient has correct armband on for positive identification. Bed in low position. Call jb4 light in reach. Side rails up X 1. Provided Education on: discharge instructions.. Administered Medications: 02:18 Drug: Ketorolac IVP 15 mg IVP once Route: IVP; Site: right wrist; jb4 02:19 Drug: morphine IVP or IV 4 mg IVP once over 4 mins Route: IVP; Infused Over: 4 mins; jb4 Site: right wrist; 02:19 Drug: Promethazine IVP 12.5 mg IVP once Route: IVP; Site: right wrist; jb4 02:19 Drug: NS 0.9% IV 1000 ml IV at 1000 ml once Route: IV; Rate: 1000 ml; Site: right wrist;jb4 04:08 Drug: Ativan IVP 1 mg IVP once Route: IVP; Site: right wrist; jb4 04:08 Drug: NS 0.9% IV 1000 ml IV at 1000 ml once Route: IV; Rate: 1000 ml; Site: right wrist;jb4 Medication: 06:59 VIS not applicable for this client. jb4 Outcome: 06:41 Discharge ordered by . rn 06:59 Discharged to home ambulatory, jb4 06:59 Condition: stable 06:59 Discharge instructions given to patient, Instructed on discharge instructions, follow up and referral plans. Demonstrated understanding of instructions, follow-up care, 07:00 Patient left the ED. jb4 Signatures: Rubén Doss MD MD rn Bryson, James, RN RN jb4 Ruchi Andrews6 Corrections: (The following items were deleted from the chart) 01:52 01:43 Pulse 77bpm; Resp 16bpm; Pulse Ox 100% RA; Temp 98.2F; jb4 jb4
[2024-03-10 07:19] VITALS: TEMP 98.2
[2024-03-10 07:23] VITALS: BP 93/59; O2SAT 99
--- NOTE | 2024-03-11 17:01 | EKG ---
Test Date: 2024-03-10 Test Time: 03:43:08 Cardiac Cath Rn: GENEVIEVE MEASUREMENT RESULTS: Intervals: Rate: 76 SD: QRSD: 74 QT: 404 QTc: 454 [place]: P: SD: QRS: 124 T: 86 INTERPRETIVE STATEMENTS: Sinus rhythm Nonspecific ST and T wave abnormality Abnormal ECG Compared to ECG 02/01/2024 18:16:13 ST (T wave) deviation now present Electronically Signed On 03-11-24 16:58:46 CDT by Maximo Hunter
== END 2024-03-10 07:00 | disposition home or self-care (01) ==
LOC: ER 01:34
DX: R51.9 Headache, unspecified (principal); R11.2 Nausea with vomiting, unspecified; F17.290 Nicotine dependence, other tobacco product, uncomplicated; Z91.030 Bee allergy status
CPT/HCPCS: 93005; 96374; 96375; 99284; J2550; J7030

== ENCOUNTER 2024-03-11 00:40 | Emergency (ER) | payer SELFPAY ==
[2024-03-11] MEDS ORDERED: NA CHLORIDE 0.9% 1,000 ML ONE (01:10)
[2024-03-11 01:22] LABS: Absolute Eosinophils 0.1 K/uL (0-0.5); Absolute Lymphocytes (CBC) 2.7 K/uL (0.7-4.9); Absolute Monocytes 0.5 K/uL (0.1-1.3); Absolute Neutrophil 4.1 K/uL (1.8-8.0); Basophils % 0.6 % (0-1.3); Eosinophils % 1.1 % (0-4.4); Hematocrit 38.6 % (36.0-45.0); Hemoglobin 13.3 g/dL (12.0-15.0); Lymphocytes % 36.8 % (15.3-44.8); MCHC 34.3 g/dL (32.0-36.0); MCV 87.5 fL (80-100); MPV 8.6 fL (7.6-11.3); Monocytes % 6.8 % (3.3-12.3); Neutrophils % 54.7 % (41.7-73.7); Nucleated Red Blood Cells % 0.1 % (0-0); Platelets 303 thou/uL (152-406); RBC Red Blood Cell Count 4.41 M/uL (3.86-4.86); Red Cell Distribution Width 13.1 % (12.1-15.2)
[2024-03-11 01:31] LABS: Anion Gap 8.7 mEq/L (5.0-15.0); Potassium 3.7 mEq/L (3.5-5.1)
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
--- NOTE | 2024-03-11 01:50 | EDPHYS ---
Physician Documentation [facility] Name: Vanda Pompa Age: 23 yrs Sex: Female : 2000 Arrival Date: 03/11/2024 Time: 00:40 Bed 20 Private MD: ED Physician Henri Moreno HPI: 03/11 00:52 This 23 yrs old Female presents to ER via EMS with complaints of ec2 Nausea/Vomiting. 00:52 Patient arrives today for evaluation of nausea and vomiting as well as dizziness that ec2 is since resolved. EMS with no interventions.. 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 - Infectious Disease History:: Denies. - Social history:: Smoking status: Patient denies any tobacco usage or history of. ROS: 00:52 Constitutional: as per hpi ec2 Exam: 00:52 Constitutional: GEN: NAD Head: atraumatic Eyes: EOMI Ears: External ears are ec2 normal. CV: regular rate LUNGS: no respiratory distress ABD: non-distended SKIN: no evidence of rashes MSK: no evidence of trauma Vital Signs: 00:46 BP 103 / 66; Pulse 66; Resp 17; Temp 97.9; Pulse Ox 96% ; Weight 54.43 kg; Height 5 ft. bm8 3 in. ; Pain 0/10; 02:10 BP 94 / 75; Pulse 76; Resp 17; Temp 97.9; Pulse Ox 98% ; Pain 0/10; bm8 00:46 Body Mass Index 21.26 (54.43 kg, 160.02 cm) bm8 00:46 Pain Scale: Adult bm8 02:10 Pain Scale: Adult bm8 [place] Coma Score: 02:10 Eye Response: spontaneous(4). Motor Response: obeys commands(6). Verbal Response: bm8 oriented(5). Total: 15. MDM: 00:43 Patient medically screened. ec2 00:52 Data reviewed: vital signs. ED course: Patient arrives today for dizziness along with ec2 nausea and vomiting. Examination remarkable well-appearing nontoxic and appears otherwise in no acute distress with a reassuring examination. Will obtain lab work, EKG, test. Differential clues electro disturbances, anemia, . . 01:07 ED course: EKG independently reviewed and interpreted by me, shows normal sinus rhythm, ec2 rate of 68, no acute ST segment elevations, intervals are nonconcerning.. 01:39 ED course: Metabolic profile reassuring, CBC reassuring, negative. Chest ec2 x-ray independently reviewed and interpreted by me, shows no acute intrathoracic process. On reassessment patient with reassuring vital signs in no acute distress. Will discharge home with return precautions given . 03/11 00:52 Order name: Basic Metabolic Panel; Complete Time: 01:38 ec2 03/11 00:52 Order name: CBC with Diff; Complete Time: :38 ec2 03/11 00:52 Order name: Test, Serum; Complete Time: :38 ec2 03/11 00:52 Order name: XRAY Chest (1 view) ec2 03/11 00:52 Order name: Cardiac monitoring; Complete Time: :17 ec2 03/11 00:52 Order name: EKG - Nurse/Tech; Complete Time: 17 ec2 03/11 00:52 Order name: IV Saline Lock; Complete Time: : ec2 03/11 00:52 Order name: Labs collected and sent; Complete Time: : ec2 03/11 00:52 Order name: O2 Per Protocol; Complete Time: : ec2 03/11 00:52 Order name: O2 Sat Monitoring; Complete Time: :17 ec2 Administered Medications: :17 Drug: NS 0.9% IV 1000 ml IV at 1 bolus Per protocol; 1000 mL bolus Route: IV; Rate: 1 bm8 bolus; Site: left forearm; 02:13 Follow up: Response: No adverse reaction; IV Status: Completed infusion; IV Intake: bm8 1000ml Disposition Summary: 03/11/24 01:50 Discharge Ordered Notes: Location: Home ec2 Condition: Stable ec2 Diagnosis - Nausea with vomiting, unspecified ec2 Followup: ec2 - With: Private Physician - When: - Reason: Re-evaluation by your physician Discharge Instructions: - Discharge Summary Sheet ec2 - Nausea and Vomiting, Adult ec2 Forms: - Medication Reconciliation Form ec2 - Antibiotic Education ec2 - Prescription Opioid Use ec2 - Patient Portal Instructions ec2 - Leadership Thank You Letter ec2 Signatures: Dispatcher [employer] Henri Gary MD MD ec2 Timo Haider RN RN bm8 Corrections: (The following items were deleted from the chart) 00:50 00:49 Home Meds: oxcarbazepine 600 mg Oral tablet 2 times per day; bm8 bm8
[2024-03-11 02:21] VITALS: TEMP 97.9
[2024-03-11 02:23] VITALS: BP 94/75; O2SAT 98
--- NOTE | 2024-03-11 16:59 | EKG ---
Test Date: 2024-03-11 Test Time: 01:05:19 Administration Assistant: AF MEASUREMENT RESULTS: Intervals: Rate: 68 WY: 122 QRSD: 82 QT: 402 QTc: 427 [place]: P: 44 W[place]: 122 QRS: 122 T: 72 INTERPRETIVE STATEMENTS: Normal sinus rhythm Normal ECG Compared to ECG 02/01/2024 18:16:13 No significant changes Electronically Signed On 03-11-24 16:58:11 CDT by Maximo Hunter
--- NOTE | 2024-03-11 18:57 | RAD REPORT ---
EXAM DESCRIPTION: XR Chest, 1 View CLINICAL HISTORY: The patient is 23 years old and is Female; COUGH TECHNIQUE: Frontal view of the chest. COMPARISON: No relevant prior studies available. FINDINGS: Lungs: Unremarkable. No consolidation. Pleural space: Unremarkable. No pneumothorax. Heart: Unremarkable. Mediastinum: Unremarkable. Normal mediastinal contour. Bones/joints: No acute findings. IMPRESSION: No acute findings in the chest. Electronically signed by: Benito Stephens MD 03/11/2024 02:01 AM CDT 8 Due to temporary technical issues with the PACS/Fluency reporting system, reports are being signed by the in house radiologists without review as a courtesy to insure prompt reporting. The interpreting radiologist is fully responsible for the content of the report.
== END 2024-03-11 02:14 | disposition home or self-care (01) ==
LOC: ER 00:40
DX: R11.2 Nausea with vomiting, unspecified (principal); R42 Dizziness and giddiness
CPT/HCPCS: 36415; 71045; 80048; 84703; 85025; 93005; 96360; 99285; J7030

== ENCOUNTER 2024-04-13 21:34 | Emergency (ER) | payer SELFPAY ==
[2024-04-13] MEDS ORDERED: NA CHLORIDE 0.9% 1,000 ML ONE (21:57)
[2024-04-13 22:06] LABS: Absolute Basophils 0.1 K/uL (0-0.5); Absolute Eosinophils 0.1 K/uL (0-0.5); Absolute Lymphocytes (CBC) 2.3 K/uL (0.7-4.9); Absolute Monocytes 0.6 K/uL (0.1-1.3); Absolute Neutrophil 5.5 K/uL (1.8-8.0); Basophils % 0.7 % (0-1.3); Eosinophils % 1.1 % (0-4.4); Hematocrit 40.1 % (36.0-45.0); Hemoglobin 13.2 g/dL (12.0-15.0); Lymphocytes % 26.6 % (15.3-44.8); MCH 29.1 pg (27.0-35.0); MCV 88.4 fL (80-100); MPV 8.2 fL (7.6-11.3); Monocytes % 7.2 % (3.3-12.3); Neutrophils % 64.4 % (41.7-73.7); Platelets 345 thou/uL (152-406); RBC Red Blood Cell Count 4.53 M/uL (3.86-4.86)
[2024-04-13 22:10] LABS: PT Prothrombin Time 10.8 SECONDS (9.4-12.5); PTT, Activated Partial Thromb 28.1 SECONDS (24.3-36.9); Protime INR 0.96
[2024-04-13 22:15] LABS: Barbiturates NEGATIVE (NEGATIVE); Benzodiazepines NEGATIVE (NEGATIVE); Cocaine NEGATIVE (NEGATIVE); METHAMPHETAM NEGATIVE (NEGATIVE); Methadone NEGATIVE (NEGATIVE); Opiates NEGATIVE (NEGATIVE); Phencyclidine NEGATIVE (NEGATIVE); THC Cannibis NEGATIVE (NEGATIVE)
[2024-04-13 22:31] LABS: ALT/SGPT 117 U/L (13-56); AST/SGOT 50 U/L (15-37); Albumin 3.8 g/dL (3.4-5.0); Albumin/Globulin Ratio 1.3 (1.1-1.8); Alkaline Phosphatase 109 U/L (45-117); Anion Gap 7.9 mEq/L (5.0-15.0); BUN Blood Urea Nitrogen 13 mg/dL (7-18); Bicarbonate 27 mEq/L (21-32); Bilirubin Direct < 0.2 mg/dL (0-0.2); Bilirubin Total 0.2 mg/dL (0.2-1.0); Glomerular Filtration Rate 126 ml/min (=/>90); Glucose Level 95 mg/dL (74-106); Potassium 3.9 mEq/L (3.5-5.1); Protein, Total 6.8 g/dL (6.4-8.2); Sodium Level 140 mEq/L (136-145)
--- NOTE | 2024-04-13 22:34 | ER ---
Nurse's Notes [facility] Name: Vanda Pompa Age: 23 yrs Sex: Female : 2000 Arrival Date: 04/13/2024 Time: 21:34 Bed 3 Private MD: Diagnosis: Palpitations;Bipolar disorder, unspecified Presentation: 04/13 21:40 Chief complaint: EMS states: Mother called because pt was "acting weird". Coronavirus bm8 screen: Vaccine status: Patient reports receiving the 2nd dose of the covid vaccine. Ebola Screen: Patient negative for fever greater than or equal to 101.5 degrees Fahrenheit, and additional compatible Ebola Virus Disease symptoms Patient denies exposure to infectious person. Patient denies travel to an Ebola-affected area in the 21 days before illness onset. No symptoms or risks identified at this time. Initial Sepsis Screen: Does the patient meet any 2 criteria? No. Patient's initial sepsis screen is negative. Does the patient have a suspected source of infection? No. Patient's initial sepsis screen is negative. Risk Assessment: Do you want to hurt yourself or someone else? Patient reports no desire to harm self or others. Onset of symptoms is unknown. 21:40 Method Of Arrival: EMS: [facility] bm8 21:40 Acuity: FREDY 3 bm8 Triage Assessment: 21:41 General: Appears in no apparent distress. comfortable, Behavior is calm, cooperative, bm8 appropriate for age. Pain: Complains of pain in head Pain currently is 5 out of 10 on a pain scale. EENT: No deficits noted. No signs and/or symptoms were reported regarding the EENT system. Neuro: No deficits noted. Level of Consciousness is awake, alert, obeys commands, Oriented to person, place, time, situation, Appropriate for age Asic Verification Engineer are equal bilaterally Moves all extremities. Full function Gait is steady, Speech is normal, Facial symmetry appears normal, Pupils are PERRLA, Pupil Size: 5mm Intact. Cardiovascular: Denies chest pain, lightheadedness, shortness of breath, Capillary refill < 3 seconds in bilateral fingers Patient's skin is warm and dry. Rhythm is sinus tachycardia. Respiratory: No deficits noted. Airway is patent Trachea midline Respiratory effort is even, unlabored, Respiratory pattern is regular, symmetrical. GI: No deficits noted. No signs and/or symptoms were reported involving the gastrointestinal system. : No deficits noted. No signs and/or symptoms were reported regarding the genitourinary system. Derm: No deficits noted. No signs and/or symptoms reported regarding the dermatologic system. Musculoskeletal: No deficits noted. No signs and/or symptoms reported regarding the musculoskeletal system. ADMINISTRATION INTERN: 21:41 unknown bm8 Historical: - Allergies: 21:41 Bees; bm8 21:41 mosquitos; bm8 - Home Meds: 21:41 oxcarbazepine 600 mg Oral tablet 2 times per day [Active]; bm8 - PMHx: 21:41 adhd; Anxiety; Bipolar disorder; Asthma; BORDERLINE PERSONALITY DISORDER; bm8 Hypothyroidism; Ovarian cyst; - PSHx: 21:41 Cholecystectomy; ear surgery; bm8 - Immunization history:: Adult Immunizations up to date. - Infectious Disease History:: Denies. - Social history:: Smoking status: Reported history of juuling and/or vaping. - Family history:: not pertinent. Screenin:00 [facility] ED Fall Risk Assessment (Adult) History of falling in the last 3 months, bm8 including since admission No falls in past 3 months (0 pts) Confusion or Disorientation No (0 pts) Intoxicated or Sedated No (0 pts) Impaired Gait No (0 pts) Mobility Assist Device Used No (0 pt) Altered Elimination No (0 pt) Score/Fall Risk Level 0 - 2 = Low Risk Oriented to surroundings, Maintained a safe environment, Educated pt \\T\\ family on fall prevention, incl call for assistance when getting out of bed, Assessed \\T\\ reinforced patient's understanding of fall precautions, Hourly rounding (assess needs \\T\\ fall precautionary measures) done, Used ambulatory aids as needed (educated on \\T\\ assisted with), Used gait belt as appropriate. Abuse screen: Denies threats or abuse. Nutritional screening: No deficits noted. Tuberculosis screening: No symptoms or risk factors identified. Assessment: 22:30 Reassessment: Patient appears in no apparent distress at this time. No changes from bm8 previously documented assessment. Patient and/or family updated on plan of care and expected duration. Pain level reassessed. Patient is alert, oriented x 3, equal unlabored respirations, skin warm/dry/pink. Patient denies pain at this time. Patient states feeling better. Patient states symptoms have improved. Vital Signs: 21:40 BP 114 / 79; Pulse 110; Resp 18; Temp 98.4; Pulse Ox 97% ; Weight 58.97 kg; Height 5 bm8 ft. 3 in. ; Pain 5/10; 22:30 BP 109 / 70; Pulse 87; Resp 17; Temp 98.4; Pulse Ox 97% ; Pain 0/10; bm8 21:40 Body Mass Index 23.03 (58.97 kg, 160.02 cm) bm8 21:40 Pain Scale: Adult bm8 22:30 Pain Scale: Adult bm8 [place] Coma Score: 22:30 Eye Response: spontaneous(4). Motor Response: obeys commands(6). Verbal Response: bm8 oriented(5). Total: 15. ED Course: 21:35 Patient arrived in ED. lg3 21:35 Dick Fields MD is Attending Physician. uzma 21:41 Triage completed. bm8 21:41 Arm band placed on right wrist. bm8 21:47 EKG done, by ED staff, reviewed by Dick Fields MD. oe 22:00 Timo Haider, RN is Primary Nurse. bm8 22:00 Patient has correct armband on for positive identification. Bed in low position. Call bm8 light in reach. Side rails up X 1. Client placed on continuous cardiac and pulse oximetry monitoring. NIBP monitoring applied. playground monitor on. Pulse ox on. NIBP on. Door closed. Noise minimized. Warm blanket given. Pillow given. Verbal reassurance given. 22:00 No provider procedures requiring assistance completed. Inserted saline lock: 22 gauge bm8 in left hand, using aseptic technique. Blood collected. Flushed with 10 mL NS. Patient maintains SpO2 saturation greater than 95% on room air. 22:30 Provided Education on: post er care. bm8 22:30 IV discontinued, intact, bleeding controlled, No redness/swelling at site. Pressure bm8 dressing applied. Administered Medications: 22:00 Drug: NS 0.9% IV 1000 ml IV at 1 bolus Per protocol; to be given as a bolus over 60 bm8 minutes Route: IV; Rate: 1 bolus; Site: left hand; 22:30 Follow up: Response: No adverse reaction; IV Status: Completed infusion; IV Intake: bm8 1000ml Medication: 22:00 VIS not applicable for this client. bm8 Intake: 22:30 IV: 1000ml; Total: 1000ml. bm8 Outcome: 22:30 Discharged to home ambulatory, bm8 22:30 Condition: stable 22:30 Discharge instructions given to patient, family, Instructed on discharge instructions, follow up and referral plans. Demonstrated understanding of instructions, follow-up care, medications, 22:33 Discharge ordered by . uzma 22:41 Patient left the ED. bm8 Signatures: Dick Fields MD MD cha Espinosa, Orlando oe Able, Lacie, RN RN lg3 Timo Haider, RN RN bm8
--- NOTE | 2024-04-13 22:34 | EDPHYS ---
Physician Documentation [facility] Name: Vanda Pompa Age: 23 yrs Sex: Female : 2000 Arrival Date: 04/13/2024 Time: 21:34 Bed 3 Private MD: ED Physician Dick Fields HPI: 04/13 21:46 This 23 yrs old Female presents to ER via EMS with complaints of PALPITATIONS.uzma 21:46 The patient presents with a history of heart racing. Context: The symptoms occur at uzma rest. Onset: The symptoms/episode began/occurred just prior to arrival. Duration: The patient or guardian reports a single episode, that is now resolved. Modifying factors: The symptoms are aggravated by nothing. The symptoms are alleviated by nothing. Associated signs and symptoms: The patient has no apparent associated signs or symptoms. Severity of symptoms: At their worst the symptoms were mild in the emergency department the symptoms have improved mildly. The patient has experienced similar episodes in the past, a few times. 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 - Infectious Disease History:: Denies. - Social history:: Smoking status: Reported history of juuling and/or vaping. - Family history:: not pertinent. ROS: 21:46 Constitutional: Negative for fever, chills, and weight loss, Eyes: Negative for injury, uzma pain, redness, and discharge, ENT: Negative for injury, pain, and discharge, Neck: Negative for injury, pain, and swelling, Respiratory: Negative for shortness of breath, cough, wheezing, and pleuritic chest pain, Abdomen/GI: Negative for abdominal pain, nausea, vomiting, diarrhea, and constipation, Back: Negative for injury and pain, : Negative for injury, bleeding, discharge, and swelling, MS/Extremity: Negative for injury and deformity, Skin: Negative for injury, rash, and discoloration, Neuro: Negative for headache, weakness, numbness, tingling, and seizure, Psych: Negative for depression, anxiety, suicide ideation, homicidal ideation, and hallucinations, Allergy/Immunology: Negative for hives, rash, and allergies, Endocrine: Negative for neck swelling, polydipsia, polyuria, polyphagia, and marked weight changes, Hematologic/Lymphatic: Negative for swollen nodes, abnormal bleeding, and unusual bruising, 21:46 Cardiovascular: Positive for palpitations, Exam: 21:46 Constitutional: This is a well developed, well nourished patient who is awake, alert, uzma and in no acute distress. Head/Face: Normocephalic, atraumatic. Eyes: Pupils equal round and reactive to light, extra-ocular motions intact. Lids and lashes normal. Conjunctiva and sclera are non-icteric and not injected. Cornea within normal limits. Periorbital areas with no swelling, redness, or edema. ENT: Nares patent. No nasal discharge, no septal abnormalities noted. Tympanic membranes are normal and external auditory canals are clear. Oropharynx with no redness, swelling, or masses, exudates, or evidence of obstruction, uvula midline. Mucous membranes moist. Neck: Trachea midline, no thyromegaly or masses palpated, and no cervical lymphadenopathy. Supple, full range of motion without nuchal rigidity, or vertebral point tenderness. No Meningismus. Chest/axilla: Normal chest wall appearance and motion. Nontender with no deformity. No lesions are appreciated. Cardiovascular: Regular rate and rhythm with a normal S1 and S2. No gallops, murmurs, or rubs. Normal PMI, no JVD. No pulse deficits. Respiratory: Lungs have equal breath sounds bilaterally, clear to auscultation and percussion. No rales, rhonchi or wheezes noted. No increased work of breathing, no retractions or nasal flaring. Abdomen/GI: Soft, non-tender, with normal bowel sounds. No distension or tympany. No guarding or rebound. No evidence of tenderness throughout. Back: No spinal tenderness. No costovertebral tenderness. Full range of motion. Skin: Warm, dry with normal turgor. Normal color with no rashes, no lesions, and no evidence of cellulitis. MS/ Extremity: Pulses equal, no cyanosis. Neurovascular intact. Full, normal range of motion. Neuro: Awake and alert, GCS 15, oriented to person, place, time, and situation. Cranial nerves II-XII grossly intact. Motor strength 5/5 in all extremities. Sensory grossly intact. Cerebellar exam normal. Normal gait. Psych: Awake, alert, with orientation to person, place and time. Behavior, mood, and affect are within normal limits. 21:46 ECG was reviewed by the Attending Physician. 21:51 Musculoskeletal/extremity: ROM: no acute changes, intact in all extremities, uzma Circulation is intact in all extremities. Pulses: Sensation intact. Compartment Syndrome exam of affected extremity: is normal. DVT Exam: No signs of deep vein thrombosis. no pain, no swelling, no tenderness, negative Homans' sign noted on exam, no appreciated bluish discoloration, no erythema, no increased warmth, 22:34 Musculoskeletal/extremity: Extremities: all appear grossly normal, with no appreciated uzma pain with palpation, NO TRAUMA, NO STASIS, NO HC STATE, Joints: All joints appear normal with full range of motion. Weight bearing: able to fully bear weight, Tendon exam: unable to examine DVT Exam: Vital Signs: 21:40 BP 114 / 79; Pulse 110; Resp 18; Temp 98.4; Pulse Ox 97% ; Weight 58.97 kg; Height 5 bm8 ft. 3 in. ; Pain 5/10; 22:30 BP 109 / 70; Pulse 87; Resp 17; Temp 98.4; Pulse Ox 97% ; Pain 0/10; bm8 21:40 Body Mass Index 23.03 (58.97 kg, 160.02 cm) bm8 21:40 Pain Scale: Adult bm8 22:30 Pain Scale: Adult bm8 [place] Coma Score: 22:30 Eye Response: spontaneous(4). Motor Response: obeys commands(6). Verbal Response: bm8 oriented(5). Total: 15. MDM: 21:35 Patient medically screened. uzma 21:49 Differential diagnosis: arrythmia, dehydration, stress disorder. Data reviewed: vital uzma signs, nurses notes, lab test result(s), EKG. Consideration of Admission/Observation Escalation of care including admission/observation considered. I considered the following discharge prescriptions or medication management in the emergency department Medications were administered in the Emergency Department. See MAR. Independent interpretation of the following test(s) in the Emergency Department EKG: See my EKG interpretation above. Test considered but Not performed: CT: NO CT CHEST. Historians other than the Patient: EMS: EMS WELL INFORMED. Care significantly affected by the following chronic conditions: ADHD, BIPOLAR, ANXIETY. 04/13 21:35 Order name: Acetaminophen; Complete Time: 22:33 3 04/13 21:35 Order name: Basic Metabolic Panel; Complete Time: 22:33 3 04/13 21:35 Order name: CBC with Diff; Complete Time: 22:19 3 04/13 21:35 Order name: ETOH Level; Complete Time: 22:33 3 04/13 21:35 Order name: Hepatic Function; Complete Time: 22:33 3 04/13 21:35 Order name: PT-INR; Complete Time: 22:19 3 04/13 21:35 Order name: Ptt, Activated; Complete Time: 22:19 3 04/13 21:35 Order name: Salicylate [facility] 04/13 21:35 Order name: Urine Drug Screen; Complete Time: 22:19 3 04/13 21:36 Order name: PREGU; Complete Time: 22:19 uzma 04/13 21:35 Order name: EKG - Nurse/Tech; Complete Time: 21:53 3 04/13 21:35 Order name: IV Saline Lock; Complete Time: 22:00 [facility] 04/13 21:35 Order name: Labs collected and sent; Complete Time: 22:00 [facility] 04/13 21:35 Order name: Suicide Screening ([place]); Complete Time: 22:00 [facility] 04/13 22:20 Order name: PO challenge: PO JUICE; Complete Time: 22:30 uzma EC:46 Rate is 99 beats/min. Rhythm is regular. QRS [place] is Normal. TN interval is normal. QRS uzma interval is normal. QT interval is normal. No Q waves. T waves are Normal. No ST changes noted. Clinical impression: Normal ECG and No evidence of ischemia. Interpreted by me. Reviewed by me. Administered Medications: 22:00 Drug: NS 0.9% IV 1000 ml IV at 1 bolus Per protocol; to be given as a bolus over 60 bm8 minutes Route: IV; Rate: 1 bolus; Site: left hand; 22:30 Follow up: Response: No adverse reaction; IV Status: Completed infusion; IV Intake: bm8 1000ml Disposition Summary: 04/13/24 22:33 Discharge Ordered Notes: Location: Home uzma Problem: new uzma Symptoms: have improved uzma Condition: Stable uzma Diagnosis - Palpitations uzma - Bipolar disorder, unspecified uzma Followup: uzma - With: Private Physician - When: 2 - 3 days - Reason: Recheck today's complaints, Re-evaluation by your physician Discharge Instructions: - Discharge Summary Sheet uzma - Palpitations uzma - Palpitations, Krje-my-Mazv uzma - Mixed Bipolar Disorder uzma Forms: - Medication Reconciliation Form uzma - Antibiotic Education uzma - Prescription Opioid Use uzma - Patient Portal Instructions uzma - Leadership Thank You Letter uzma Signatures: Dispatcher [employer] EDMS Dick Fields MD MD cha Able, Lacie, RN RN lg3 Timo Haider, RN RN bm8 Corrections: (The following items were deleted from the chart) 21:36 21:36 ACETAMINOPHEN+C.LAB.BRZ ordered. EDMS EDMS 21:36 21:36 BASIC METABOLIC PANEL+C.LAB.BRZ ordered. EDMS EDMS 21:36 21:36 CBC+H.LAB.BRZ ordered. EDMS EDMS 21:36 21:36 ETHANOL+C.LAB.BRZ ordered. EDMS EDMS 21:36 21:36 HEPATIC FUNCTION+C.LAB.BRZ ordered. EDMS EDMS 21:36 21:36 PROTIME (+INR)+COAG.LAB.BRZ ordered. EDMS EDMS 21:36 21:36 PTT, ACTIVATED+COAG.LAB.BRZ ordered. EDMS EDMS 21:36 21:36 SALICYLATE+C.LAB.BRZ ordered. EDMS EDMS 21:36 21:36 URINE DRUG SCREEN+UC.LAB.BRZ ordered. EDMS EDMS
[2024-04-14 02:27] VITALS: TEMP 98.4; O2SAT 97
[2024-04-14 02:28] VITALS: BP 109/70
--- NOTE | 2024-04-18 12:11 | EKG ---
Test Date: 2024-04-13 Test Time: 21:45:19 Centrifugal Separator: VICTORIANO MEASUREMENT RESULTS: Intervals: Rate: 99 MS: 158 QRSD: 78 QT: 348 QTc: 446 [place]: P: 38 MS: 158 QRS: 128 T: 64 INTERPRETIVE STATEMENTS: Normal sinus rhythm Right axis deviation Possible Right ventricular hypertrophy Abnormal ECG Compared to ECG 03/11/2024 01:05:19 Right-axis deviation now present Electronically Signed On 04-18-24 11:58:25 CDT by Manjeet Ulrich
== END 2024-04-13 22:41 | disposition home or self-care (01) ==
LOC: ER 21:34
DX: R00.2 Palpitations (principal); F31.9 Bipolar disorder, unspecified
CPT/HCPCS: 36415; 80048; 80076; 80143; 80179; 80307; 81025; 82077; 85025; 85610; 85730; 93005; 99285; J7030

== ENCOUNTER 2024-05-06 22:26 | Emergency (ER) | payer SELFPAY ==
[2024-05-06 23:59] LABS: Absolute Basophils 0.1 K/uL (0-0.5); Absolute Eosinophils 0.1 K/uL (0-0.5); Absolute Lymphocytes (CBC) 2.3 K/uL (0.7-4.9); Absolute Monocytes 0.5 K/uL (0.1-1.3); Basophils % 0.8 % (0-1.3); Hematocrit 39.9 % (36.0-45.0); Hemoglobin 13.2 g/dL (12.0-15.0); Lymphocytes % 29.4 % (15.3-44.8); MCH 29.4 pg (27.0-35.0); MCV 88.9 fL (80-100); MPV 8.2 fL (7.6-11.3); Monocytes % 5.9 % (3.3-12.3); Neutrophils % 62.9 % (41.7-73.7); Platelets 367 thou/uL (152-406); RBC Red Blood Cell Count 4.49 M/uL (3.86-4.86); Red Cell Distribution Width 12.8 % (12.1-15.2)
[2024-05-07 00:05] LABS: Specific Gravity 1.014 (1.005-1.030)
[2024-05-07 00:07] LABS: Specific Gravity 1.014 (1.005-1.030); Sqamous Epithelial None Seen /HPF (None Seen); Urine Bacteria None Seen /HPF (<20); Urine Bilirubin NEGATIVE (Negative); Urine Blood Negative (Negative); Urine Clarity Extremely Turbid (Clear); Urine Color Light-Yellow (Yellow); Urine Culture Reflex Order NOT NEEDED; Urine Glucose NEGATIVE (Negative); Urine Ketones NEGATIVE (Negative); Urine Microscopic Reflex YN ORDER UMIC; Urine Nitrite NEGATIVE (Negative); Urine Protein NEGATIVE (Negative); Urine RBC None Seen /HPF (None Seen); Urine Urobilinogen Normal (Normal); Urine WBC None Seen /HPF (<5)
[2024-05-07 00:12] LABS: Albumin 3.6 g/dL (3.4-5.0); Anion Gap 6.6 mEq/L (5.0-15.0); Bilirubin Total 0.2 mg/dL (0.2-1.0); Globulin 3.5 g/dL (2.3-3.5); Potassium 3.6 mEq/L (3.5-5.1); Protein, Total 7.1 g/dL (6.4-8.2)
[2024-05-07] MEDS ORDERED: METOCLOPRAMIDE 10 MG/2mL INJ ONE (00:28)
[2024-05-07] MEDS ORDERED: DIPHENHYDRAMINE 50 MG/ML VIAL ONE (00:28)
[2024-05-07] MEDS ORDERED: KETOROLAC 30 MG/ML INJ ONE (00:28)
--- NOTE | 2024-05-07 01:00 | ER ---
Nurse's Notes [facility] Name: Vanda Pompa Age: 23 yrs Sex: Female : 2000 Arrival Date: 05/06/2024 Time: 22:26 Bed 15 Private MD: Diagnosis: Headache;Abdominal pain, unspecified;Nausea Presentation: 05/06 22:29 Chief complaint: Patient states: Migraine for the last week and it won't go away. I vc1 can't even work right now. Stomach pain from having gall bladder removed and anxiety from having spouse in hospital. Chief complaint: EMS states: toned out for anxiety abdominal pelvis pain and migraine. Coronavirus screen: Client denies travel out of the [place] in the last 14 days. At this time, the client does not indicate any symptoms associated with coronavirus-19. Ebola Screen: Patient negative for fever greater than or equal to 101.5 degrees Fahrenheit, and additional compatible Ebola Virus Disease symptoms Patient denies exposure to infectious person. Patient denies travel to an Ebola-affected area in the 21 days before illness onset. No symptoms or risks identified at this time. Initial Sepsis Screen: Does the patient meet any 2 criteria? No. Patient's initial sepsis screen is negative. Does the patient have a suspected source of infection? No. Patient's initial sepsis screen is negative. Risk Assessment: Do you want to hurt yourself or someone else? Patient reports no desire to harm self or others. Onset of symptoms is unknown. 22:29 Method Of Arrival: EMS: [facility] vc1 22:29 Acuity: FREDY 3 vc1 Historical: - Allergies: 22:33 Bees; vc1 22:33 mosquitos; vc1 - PMHx: 22:33 adhd; Anxiety; Asthma; Bipolar disorder; BORDERLINE PERSONALITY DISORDER; vc1 Hypothyroidism; Ovarian cyst; - PSHx: 22:33 Cholecystectomy; ear surgery; vc1 - Immunization history:: Client reports receiving the 2nd dose of the Covid vaccine. - Infectious Disease History:: Denies. - Social history:: Smoking status: Reported history of juuling and/or vaping. Screenin:25 [facility] ED Fall Risk Assessment (Adult) History of falling in the last 3 months, rg5 including since admission No falls in past 3 months (0 pts) Confusion or Disorientation No (0 pts) Intoxicated or Sedated No (0 pts) Impaired Gait No (0 pts) Mobility Assist Device Used No (0 pt) Altered Elimination No (0 pt) Score/Fall Risk Level 0 - 2 = Low Risk Oriented to surroundings, Maintained a safe environment, Hourly rounding (assess needs \T\ fall precautionary measures) done. Abuse screen: Denies threats or abuse. Nutritional screening: No deficits noted. Tuberculosis screening: No symptoms or risk factors identified. Assessment: 23:25 General: Appears in no apparent distress. comfortable, Behavior is calm, cooperative, rg5 appropriate for age. 23:25 Pain: Complains of pain in head Pain currently is 8 out of 10 on a pain scale. Quality rg5 of pain is described as aching. Neuro: Level of Consciousness is awake, alert, obeys commands. Cardiovascular: Reports None. Respiratory: Airway is patent Trachea midline. GI: Abdomen is flat, Bowel sounds present X 4 quads. Abd is soft and non tender. : No signs and/or symptoms were reported regarding the genitourinary system. EENT: No deficits noted. Derm: Skin is intact, Skin is dry. Musculoskeletal: Circulation, motion, and sensation intact. Range of motion: intact in all extremities. Vital Signs: 22:29 BP 127 / 84; Pulse 81; Resp 14; Temp 97.2; Pulse Ox 100% ; Weight 56.7 kg; Height 5 ft. vc1 3 in. ; Pain 10/10; 05/07 00:00 BP 107 / 70; Pulse 93; Resp 17; Temp 98; Pulse Ox 99% on R/A; Pain 7/10; rg5 01:00 BP 111 / 76; Pulse 88; Resp 17; Pulse Ox 99% on R/A; Pain 2/10; rg5 05/06 22:29 Body Mass Index 22.14 (56.70 kg, 160.02 cm) vc1 05/06 22:29 Pain Scale: Adult vc1 05/07 00:00 Pain Scale: Adult rg5 01:00 Pain Scale: Adult rg5 ED Course: 05/06 22:28 Patient arrived in ED. vc1 22:32 Dick Nathan PA is PHCP. cp 22:32 Mejia Green MD is Attending Physician. cp 22:33 Triage completed. vc1 22:34 Arm band placed on right wrist. vc1 23:06 Saul Holliady, RN is Primary Nurse. rg5 23:18 Inserted saline lock: 22 gauge in left antecubital area, using aseptic technique. Blood oe collected. Flushed with 10 mL NS. 23:25 Patient has correct armband on for positive identification. Provided Education on: post rg5 er care. 23:25 No provider procedures requiring assistance completed. rg5 Administered Medications: 05/07 00:15 Drug: Ketorolac IVP 15 mg IVP once Route: IVP; Site: left antecubital; rg5 00:25 Follow up: Response: No adverse reaction; Pain is decreased rg5 00:25 Drug: metoCLOPramide IVP 10 mg IVP once; over 1 to 2 minutes Route: IVP; Site: left rg5 antecubital; 00:25 Follow up: Response: No adverse reaction; Pain is decreased rg5 00:25 Drug: diphenhydrAMINE IVP 25 mg IVP once Route: IVP; Site: left antecubital; rg5 00:25 Follow up: Response: No adverse reaction rg5 Medication: 05/06 23:25 VIS not applicable for this client. rg5 Outcome: 05/07 01:00 Discharge ordered by MD. cp 01:04 Discharged to home ambulatory, cp4 01:04 Condition: stable 01:04 Discharge instructions given to patient, Patient left prior to discharge instructions 01:04 Patient left the ED. cp4 Signatures: Dick Nathan PA PA cp Espinosa, Orlando oe Calcote, Vanessa, RN RN vc1 Jessica Jose cp4 Saul Holliday, OLGA ESPINOZA 5
--- NOTE | 2024-05-07 01:01 | EDPHYS ---
Physician Documentation [facility] Name: Vanda Pompa Age: 23 yrs Sex: Female : 2000 Arrival Date: 05/06/2024 Time: 22:26 Bed 15 Private MD: ED Physician Mejia Green HPI: 05/06 22:45 This 23 yrs old Female presents to ER via EMS with complaints of Anxiety, Abdominal cp Pain, Headache < 24hrs Old. Historical: - Allergies: 22:33 Bees; vc1 22:33 mosquitos; vc1 - PMHx: 22:33 adhd; Anxiety; Asthma; Bipolar disorder; BORDERLINE PERSONALITY DISORDER; vc1 Hypothyroidism; Ovarian cyst; - PSHx: 22:33 Cholecystectomy; ear surgery; vc1 - Immunization history:: Client reports receiving the 2nd dose of the Covid vaccine. - Infectious Disease History:: Denies. - Social history:: Smoking status: Reported history of juuling and/or vaping. ROS: 22:50 Constitutional: Negative for body aches, chills, fever, poor PO intake, cp 22:50 Eyes: Positive for photophobia, cp 22:50 ENT: Negative for drainage from ear(s), ear pain, sore throat, difficulty swallowing, difficulty handling secretions, 22:50 Cardiovascular: Negative for chest pain, edema, palpitations, 22:50 Respiratory: Negative for cough, shortness of breath, wheezing, 22:50 Abdomen/GI: Positive for abdominal pain, nausea and vomiting, Negative for diarrhea, constipation, 22:50 : Positive for vaginal bleeding, Negative for urinary symptoms, 22:50 Neuro: Positive for headache, Negative for weakness, 22:50 Psych: Positive for anxiety, 22:50 All other systems are negative, Exam: 22:55 Constitutional: The patient appears in no acute distress, alert, awake, non-toxic, well cp developed, well nourished, uncomfortable, 22:55 Head/Face: Normocephalic, atraumatic. cp 22:55 Eyes: Periorbital structures: appear normal, Pupils: equal, round, and reactive to light and accomodation, Extraocular movements: intact throughout, Conjunctiva: normal, no exudate, no injection, Sclera: no appreciated abnormality, Lids and lashes: appear normal, bilaterally, 22:55 ENT: External ear(s): are unremarkable, Nose: is normal, Mouth: Lips: moist, Oral mucosa: moist, Posterior pharynx: Airway: no evidence of obstruction, patent, 22:55 Neck: ROM/movement: is normal, is supple, without pain, no range of motions limitations, 22:55 Chest/axilla: Inspection: normal, 22:55 Cardiovascular: Rate: normal, Rhythm: regular, 22:55 Respiratory: the patient does not display signs of respiratory distress, Respirations: normal, no use of accessory muscles, no retractions, labored breathing, is not present, Breath sounds: are clear throughout, no decreased breath sounds, no stridor, no wheezing, 22:55 Abdomen/GI: Inspection: abdomen appears normal, Bowel sounds: active, all quadrants, Palpation: soft, in all quadrants, mild abdominal tenderness, in the right lower quadrant and left lower quadrant, rebound tenderness, is not appreciated, involuntary guarding, is not appreciated, 22:55 Back: pain, is absent, ROM is normal, 22:55 Neuro: Orientation: to person, place \T\ time. Mentation: is normal, Motor: moves all fours, strength is normal, Vital Signs: 22:29 BP 127 / 84; Pulse 81; Resp 14; Temp 97.2; Pulse Ox 100% ; Weight 56.7 kg; Height 5 ft. vc1 3 in. ; Pain 10/10; 05/07 00:00 BP 107 / 70; Pulse 93; Resp 17; Temp 98; Pulse Ox 99% on R/A; Pain 7/10; rg5 01:00 BP 111 / 76; Pulse 88; Resp 17; Pulse Ox 99% on R/A; Pain 2/10; rg5 11 22:29 Body Mass Index 22.14 (56.70 kg, 160.02 cm) vc1 11 22:29 Pain Scale: Adult vc1 05/07 00:00 Pain Scale: Adult rg5 01:00 Pain Scale: Adult rg5 MDM: 05/06 22:32 Medical Screening Exam initiated cp 05/07 01:00 Data reviewed: vital signs, nurses notes, lab test result(s), and as a result, I will cp discharge patient. 01:00 Differential diagnosis: migraine, sinusitis, tension headache. I considered the cp following discharge prescriptions or medication management in the emergency department Medications were administered in the Emergency Department. See MAR. Counseling: I had a detailed discussion with the patient and/or guardian regarding the historical points, exam findings, and any diagnostic results supporting the discharge/admit diagnosis, lab results, to return to the emergency department if symptoms worsen or persist or if there are any questions or concerns that arise at home. Response to treatment: the patient's symptoms have markedly improved after treatment, and as a result, I will discharge patient. 05/06 22:37 Order name: CBC with Diff; Complete Time: 00:54 05/07 00:55 Interpretation: Reviewed. 05/06 22:37 Order name: CMP; Complete Time: 00:54 05/07 00:55 Interpretation: Normal except: CL 111; ALK 118; A/G 1.0. 05/06 22:37 Order name: Lipase; Complete Time: 00:54 05/06 22:37 Order name: Test, Urine; Complete Time: 00:08 05/06 22:37 Order name: Urinalysis w/ reflexes; Complete Time: 00:08 05/07 00:08 Interpretation: Normal except: [facility] Extremely Turbid; UPH 8.0; GERMÁN Cx 3+. 05/06 22:37 Order name: IV Saline Lock; Complete Time: 23:49 05/06 22:37 Order name: Labs collected and sent; Complete Time: 23:50 05/07 00:55 Order name: PO challenge; Complete Time: 00:59 cp Administered Medications: 00:15 Drug: Ketorolac IVP 15 mg IVP once Route: IVP; Site: left antecubital; rg5 00:25 Follow up: Response: No adverse reaction; Pain is decreased rg5 00:25 Drug: metoCLOPramide IVP 10 mg IVP once; over 1 to 2 minutes Route: IVP; Site: left rg5 antecubital; 00:25 Follow up: Response: No adverse reaction; Pain is decreased rg5 00:25 Drug: diphenhydrAMINE IVP 25 mg IVP once Route: IVP; Site: left antecubital; rg5 00:25 Follow up: Response: No adverse reaction rg5 Disposition: 19:09 Chart complete. 05/08 00:34 Co-signature as Attending Physician, Dick STEWARD I agree with the assessment and plan sp4 of care. I reviewed the patient's care provided by Advanced Practice Provider \T\ agree w/ the diagnosis \T\ care plan. I personally saw the pt \T\ performed a substantive portion of the visit, incldng all aspects of the (History/Exam/Medical Decision Making). Disposition Summary: 05/07/24 01:00 Discharge Ordered Notes: Location: Home cp Problem: new cp Symptoms: have improved cp Condition: Stable cp Diagnosis - Headache cp - Abdominal pain, unspecified cp - Nausea cp Followup: cp - With: Private Physician - When: 1 - 2 days - Reason: Recheck today's complaints Discharge Instructions: - Discharge Summary Sheet cp - Abdominal Pain, Adult cp - General Headache Without Cause cp - Nausea, Adult cp Forms: - Medication Reconciliation Form cp - Antibiotic Education cp - Prescription Opioid Use cp - Patient Portal Instructions cp - Leadership Thank You Letter cp Signatures: Dispatcher [employer] EDMS Dick Nathan PA PA cp Rhina Galeano RN RN vc1 Mejia Green MD MD sp4 Saul Holliday RN RN rg5
[2024-05-07 02:51] VITALS: TEMP 98; O2SAT 99
[2024-05-07 02:57] VITALS: BP 111/76
== END 2024-05-07 01:04 | disposition home or self-care (01) ==
LOC: ER 22:26
DX: R51.9 Headache, unspecified (principal); R11.0 Nausea; R10.31 Right lower quadrant pain
CPT/HCPCS: 36415; 80053; 81001; 81025; 83690; 85025; J1200; J2765

== ENCOUNTER 2024-05-23 21:33 | Emergency (ER) | payer SELFPAY ==
[2024-05-23] MEDS ORDERED: ALPRAZOLAM 0.25 MG TABLET ONE (21:50)
--- NOTE | 2024-05-23 21:53 | ER ---
Nurse's Notes [facility] Name: Vanda Pompa Age: 24 yrs Sex: Female : 2000 Arrival Date: 05/23/2024 Time: 21:33 Bed 24 Private MD: Diagnosis: Anxiety disorder, unspecified Presentation: 05/23 21:38 Chief complaint: EMS states: toned out for anxiety after an argument with her mother. sc1 BP 120/80. Coronavirus screen: Vaccine status: Patient reports receiving the 2nd dose of the covid vaccine. Ebola Screen: No symptoms or risks identified at this time. Initial Sepsis Screen: Does the patient meet any 2 criteria? No. Patient's initial sepsis screen is negative. Does the patient have a suspected source of infection? No. Patient's initial sepsis screen is negative. Risk Assessment: Do you want to hurt yourself or someone else? Patient reports no desire to harm self or others. Onset of symptoms was May 23, 2024 at 21:00. 21:38 Method Of Arrival: EMS: [facility] [place] 21:38 Acuity: FREDY 5 sc1 Triage Assessment: 21:44 General: Appears in no apparent distress. comfortable, well groomed, well developed, me1 well nourished, Behavior is calm, cooperative, appropriate for age. General: Making jokes with nurse during triage and laughing. . Pain: Denies pain. EENT: No signs and/or symptoms were reported regarding the EENT system. Neuro: Level of Consciousness is awake, alert, obeys commands, Oriented to person, place, time, situation, Appropriate for age. Cardiovascular: Patient's skin is warm and dry. Respiratory: Airway is patent Respiratory effort is even, unlabored, Respiratory pattern is regular, symmetrical. GI: No signs and/or symptoms were reported involving the gastrointestinal system. : No signs and/or symptoms were reported regarding the genitourinary system. Derm: Skin is intact, is healthy with good turgor, Skin is pink, warm \T\ dry. Musculoskeletal: Circulation, motion, and sensation intact. Range of motion: intact in all extremities. SUPERVISOR DECORATING: 21:44 LMP N/A - Irregular menses, Not sc1 Historical: - Allergies: 21:44 Bees; me1 21:44 mosquitos; me1 - PMHx: 21:44 adhd; Asthma; Anxiety; Bipolar disorder; BORDERLINE PERSONALITY DISORDER; me1 Hypothyroidism; Ovarian cyst; - PSHx: 21:44 Cholecystectomy; ear surgery; me1 - Immunization history:: Adult Immunizations up to date. - Infectious Disease History:: Denies. - Social history:: Smoking status: Reported history of juuling and/or vaping. Screenin:47 [facility] ED Fall Risk Assessment (Adult) History of falling in the last 3 months, me1 including since admission No falls in past 3 months (0 pts) Confusion or Disorientation No (0 pts) Intoxicated or Sedated No (0 pts) Impaired Gait No (0 pts) Mobility Assist Device Used No (0 pt) Altered Elimination No (0 pt) Score/Fall Risk Level 0 - 2 = Low Risk Maintained a safe environment, Provided non-skid footwear, Hourly rounding (assess needs \T\ fall precautionary measures) done. Abuse screen: Denies threats or abuse. Nutritional screening: No deficits noted. Tuberculosis screening: No symptoms or risk factors identified. Assessment: 21:47 General: See triage assessment. . me1 Vital Signs: 21:38 BP 113 / 72; Pulse 99; Resp 18; Temp 98.6; Pulse Ox 97% ; Weight 54.43 kg; Height 5 ft. me1 3 in. ; Pain 0/10; 21:38 Body Mass Index 21.26 (54.43 kg, 160.02 cm) me1 21:38 Pain Scale: Adult sc1 ED Course: 21:38 Patient arrived in ED. me1 21:41 Triage completed. me1 21:44 Mee Paredes MD is Attending Physician. sp3 21:44 Arm band placed on Patient placed in an exam room. me1 21:47 Patient has correct armband on for positive identification. Bed in low position. Call me1 light in reach. Side rails up X2. Provided Education on: POC. Verbalized understanding. . Client placed on continuous cardiac and pulse oximetry monitoring. NIBP monitoring applied. Pulse ox on. NIBP on. Warm blanket given. 21:47 No provider procedures requiring assistance completed. me1 21:52 Jenny Potter, OLGA is Primary Nurse. me1 22:03 Patient did not have IV access during this emergency room visit. me1 Administered Medications: 21:52 Drug: ALPRAZolam PO Tablet 0.25 mg PO once Route: PO; me1 22:02 Follow up: Response: No adverse reaction me1 Medication: 21:47 VIS not applicable for this client. me1 Outcome: :53 Discharge ordered by . sp3 22:03 Discharged to home ambulatory, with family, me1 22:03 Condition: stable 22:03 Discharge instructions given to patient, Instructed on discharge instructions, follow up and referral plans. Demonstrated understanding of instructions, follow-up care, 22:04 Patient left the ED. me1 Signatures: Mee Paredes MD MD sp3 Jenny Potter RN RN me1 Corrections: (The following items were deleted from the chart) 22:03 22:03 IV discontinued, intact, bleeding controlled, No redness/swelling at site. me1 Pressure dressing applied, me1
--- NOTE | 2024-05-23 21:53 | EDPHYS ---
Physician Documentation [facility] Name: Vanda Pompa Age: 24 yrs Sex: Female : 2000 Arrival Date: 05/23/2024 Time: 21:33 Bed 24 Private MD: ED Physician Mee Paredes HPI: 05/23 21:50 This 24 yrs old Female presents to ER via EMS with complaints of Anxiety. sp3 21:50 22-year-old female well-known to the ED with history of bipolar disease, borderline sp3 personality disorder, anxiety now presents to the ED with chief complaint anxiety. She states her normal meds are working. She denies SI, HI, psychosis or any other somatic symptoms. Remainder of ROS negative.. 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 - Infectious Disease History:: Denies. - Social history:: Smoking status: Reported history of juuling and/or vaping. ROS: 21:51 Constitutional: Negative for fever, chills, and weight loss, Eyes: Negative for injury, sp3 pain, redness, and discharge, ENT: Negative for injury, pain, and discharge, Neck: Negative for injury, pain, and swelling, Cardiovascular: Negative for chest pain, palpitations, and edema, Respiratory: Negative for shortness of breath, cough, wheezing, and pleuritic chest pain, Abdomen/GI: Negative for abdominal pain, nausea, vomiting, diarrhea, and constipation, Back: Negative for injury and pain, : Negative for injury, bleeding, discharge, and swelling, MS/Extremity: Negative for injury and deformity, Skin: Negative for injury, rash, and discoloration, Neuro: Negative for headache, weakness, numbness, tingling, and seizure, Allergy/Immunology: Negative for hives, rash, and allergies, Endocrine: Negative for neck swelling, polydipsia, polyuria, polyphagia, and marked weight changes, Hematologic/Lymphatic: Negative for swollen nodes, abnormal bleeding, and unusual bruising, 21:51 All other systems are negative, Exam: 21:51 Constitutional: This is a well developed, well nourished patient who is awake, alert, sp3 and in no acute distress. Head/Face: Normocephalic, atraumatic. Eyes: Pupils equal round and reactive to light, extra-ocular motions intact. Lids and lashes normal. Conjunctiva and sclera are non-icteric and not injected. Cornea within normal limits. Periorbital areas with no swelling, redness, or edema. Neck: Trachea midline, no thyromegaly or masses palpated, and no cervical lymphadenopathy. Supple, full range of motion without nuchal rigidity, or vertebral point tenderness. No Meningismus. Chest/axilla: Normal chest wall appearance and motion. Nontender with no deformity. No lesions are appreciated. Cardiovascular: Regular rate and rhythm with a normal S1 and S2. No gallops, murmurs, or rubs. Normal PMI, no JVD. No pulse deficits. Respiratory: Lungs have equal breath sounds bilaterally, clear to auscultation and percussion. No rales, rhonchi or wheezes noted. No increased work of breathing, no retractions or nasal flaring. Abdomen/GI: Soft, non-tender, with normal bowel sounds. No distension or tympany. No guarding or rebound. No evidence of tenderness throughout. Back: No spinal tenderness. No costovertebral tenderness. Full range of motion. Skin: Warm, dry with normal turgor. Normal color with no rashes, no lesions, and no evidence of cellulitis. MS/ Extremity: Pulses equal, no cyanosis. Neurovascular intact. Full, normal range of motion. Neuro: Awake and alert, GCS 15, oriented to person, place, time, and situation. Cranial nerves II-XII grossly intact. Motor strength 5/5 in all extremities. Sensory grossly intact. Cerebellar exam normal. Normal gait. 21:51 Psych: Currently normal psychiatric exam. Patient appears mildly anxious but in no acute distress.. Vital Signs: 21:38 BP 113 / 72; Pulse 99; Resp 18; Temp 98.6; Pulse Ox 97% ; Weight 54.43 kg; Height 5 ft. me1 3 in. ; Pain 0/10; 21:38 Body Mass Index 21.26 (54.43 kg, 160.02 cm) me1 21:38 Pain Scale: Adult me1 MDM: 21:45 Medical Screening Exam initiated sp3 Administered Medications: 21:52 Drug: ALPRAZolam PO Tablet 0.25 mg PO once Route: PO; me1 22:02 Follow up: Response: No adverse reaction me1 Disposition Summary: 05/23/24 21:53 Discharge Ordered Notes: Location: Home sp3 Condition: Stable sp3 Diagnosis - Anxiety disorder, unspecified sp3 Followup: sp3 - With: Private Physician - When: Upon discharge from the Emergency Department - Reason: Continuance of care Forms: - Medication Reconciliation Form sp3 - Antibiotic Education sp3 - Prescription Opioid Use sp3 - Patient Portal Instructions sp3 - Leadership Thank You Letter sp3 Signatures: Mee Paredes MD MD sp3 Jenny Potter RN RN me1
[2024-05-24 01:07] VITALS: BP 113/72; TEMP 98.6; O2SAT 97
== END 2024-05-23 22:04 | disposition home or self-care (01) ==
LOC: ER 21:33
DX: F41.9 Anxiety disorder, unspecified (principal)
CPT/HCPCS: 99284

== ENCOUNTER 2024-07-15 20:37 | Emergency (ER) | payer SELFPAY ==
[2024-07-15] MEDS ORDERED: KETOROLAC 30 MG/ML INJ ONE (21:21)
--- NOTE | 2024-07-15 21:48 | RAD REPORT ---
EXAMINATION: US Transvaginal Study Probe CLINICAL INDICATION: Female 24 years old.[facility] MAIN 04/2024 ABD PAIN Bed:IW4 TECHNIQUE: Real-time ultrasonography of the pelvis was performed transvaginally. Color and spectral D oppler evaluation of the ovaries was performed. COMPARISON: No prior exam. FINDINGS: UTERUS AND CERVIX: The uterus measures 6.7 cm in length. The uterus is normal. No masses seen The end ometrium is normal, 0.4 cm in thickness. RIGHT OVARY: Normal The right ovary measures 2.7 x 1.6 x 2.3 cm. Normal color and spectral Doppler evaluation of the right ovary.. LEFT OVARY: Normal The left ovary measures 2.6 x 1.6 x 1.4 cm. Normal color and spectral Doppler evaluation of the left ovary.. FREE FLUID: No free fluid. IMPRESSION: No abnormal sonographic pelvic findings.
[2024-07-15 23:02] LABS: Specific Gravity 1.012 (1.005-1.030)
[2024-07-15 23:03] LABS: Specific Gravity 1.012 (1.005-1.030); Sqamous Epithelial <5 /HPF (None Seen); Urine Bacteria None Seen /HPF (<20); Urine Bilirubin NEGATIVE (Negative); Urine Blood Negative (Negative); Urine Clarity Turbid (Clear); Urine Color Light-Yellow (Yellow); Urine Culture Reflex Order NOT NEEDED; Urine Glucose NEGATIVE (Negative); Urine Ketones NEGATIVE (Negative); Urine Microscopic Reflex YN ORDER UMIC; Urine Mucus Slight /HPF (None Seen); Urine Nitrite NEGATIVE (Negative); Urine Protein NEGATIVE (Negative); Urine RBC <5 /HPF (None Seen); Urine Urobilinogen Normal (Normal); Urine WBC <5 /HPF (<5)
--- NOTE | 2024-07-15 23:17 | ER ---
Nurse's Notes [facility] Name: Vanda Pompa Age: 24 yrs Sex: Female : 2000 Arrival Date: 07/15/2024 Time: 20:37 Bed 9 Private MD: Diagnosis: Lower abdominal pain, unspecified-cramps Presentation: 07/15 20:48 Chief complaint: Patient states: Cramping X1 week. Pt states that she thinks she may cm10 have another ovarian cyst. Coronavirus screen: Client denies travel out of the [place] in the last 14 days. Ebola Screen: Patient denies travel to an Ebola-affected area in the 21 days before illness onset. Initial Sepsis Screen: Does the patient meet any 2 criteria? HR > 90 bpm. Does the patient have a suspected source of infection? No. Patient's initial sepsis screen is negative. Risk Assessment: Do you want to hurt yourself or someone else? Patient reports no desire to harm self or others. Onset of symptoms was July 15, 2024. 20:48 Method Of Arrival: Ambulatory cm10 20:48 Acuity: FREDY 3 cm10 Triage Assessment: 20:50 General: Appears in no apparent distress. uncomfortable, Behavior is calm, cooperative. cm10 Pain: Complains of pain in abdomen Pain currently is 10 out of 10 on a pain scale. Quality of pain is described as crampy. Neuro: No deficits noted. Level of Consciousness is awake, alert, obeys commands, Oriented to person, place, time, situation, Appropriate for age. Respiratory: No deficits noted. Airway is patent Respiratory effort is even, unlabored, Respiratory pattern is regular, symmetrical. Historical: - Allergies: 20:49 Bees; cm10 20:49 mosquitos; cm10 - PMHx: 20:49 adhd; Anxiety; Asthma; Bipolar disorder; BORDERLINE PERSONALITY DISORDER; cm10 Hypothyroidism; Ovarian cyst; - PSHx: 20:49 Cholecystectomy; ear surgery; cm10 - Immunization history:: Adult Immunizations up to date. - Infectious Disease History:: Denies. - Social history:: Smoking status: Reported history of juuling and/or vaping. Screenin:34 [facility] ED Fall Risk Assessment (Adult) History of falling in the last 3 months, jb4 including since admission No falls in past 3 months (0 pts) Confusion or Disorientation No (0 pts) Intoxicated or Sedated No (0 pts) Impaired Gait No (0 pts) Mobility Assist Device Used No (0 pt) Altered Elimination No (0 pt) Score/Fall Risk Level 0 - 2 = Low Risk Oriented to surroundings, Maintained a safe environment. Abuse screen: Denies threats or abuse. Nutritional screening: No deficits noted. Tuberculosis screening: No symptoms or risk factors identified. Assessment: 23:34 Reassessment: Patient appears in no apparent distress at this time. Patient and/or jb4 family updated on plan of care and expected duration. Pain level reassessed. Patient is alert, oriented x 3, equal unlabored respirations, skin warm/dry/pink. Vital Signs: 20:48 BP 119 / 84; Pulse 102; Resp 15; Temp 96.8(TE); Pulse Ox 100% on R/A; Weight 63.5 kg; cm10 Height 5 ft. 3 in. ; Pain 7/10; 20:48 Body Mass Index 24.80 (63.50 kg, 160.02 cm) cm10 20:48 Pain Scale: Adult cm10 ED Course: 20:38 Patient arrived in ED. ra3 20:43 Trudi Thomason FNP-C [facility]. kb 20:43 Henri Moreno MD is Attending Physician. kb 20:49 Triage completed. cm10 20:50 Arm band placed on right wrist. Patient placed in waiting room. cm10 21:25 Transvaginal Study Probe In Process Unspecified. EDMS 23:34 Patient has correct armband on for positive identification. Bed in low position. Call jb4 light in reach. Side rails up X 1. Provided Education on:. 23:34 No provider procedures requiring assistance completed. Patient did not have IV access jb4 during this emergency room visit. Administered Medications: 21:24 Drug: Ketorolac IM 30 mg IM once Route: IM; Site: left deltoid; jb4 22:00 Follow up: Response: No adverse reaction; Marked relief of symptoms; Pain is decreased jb4 Medication: 23:34 VIS not applicable for this client. jb4 Outcome: 23:16 Discharge ordered by . kb 23:34 Discharged to home ambulatory, with family, [facility] 23:34 Condition: stable 23:34 Discharge instructions given to pt left prior to receiving instructions. 23:38 Patient left the ED. jb4 Signatures: Dispatcher [employer] EDMS Trudi Thomason, ODETTEC NIYAH-Jose Arana RN RN jb4 Helene Diop RN RN cm10 Yael Telles ra3
--- NOTE | 2024-07-15 23:17 | EDPHYS ---
Physician Documentation [facility] Name: Vanda Pompa Age: 24 yrs Sex: Female : 2000 Arrival Date: 07/15/2024 Time: 20:37 Bed 9 Private MD: ED Physician Henri Moreno HPI: 07/15 23:31 This 24 yrs old Female presents to ER via Ambulatory with complaints of Vaginal kb cramping. 23:31 Pt is a 24 year old female who presents for lower abd cramping that started one week kb ago. States she hasn't had a period in 3 months and was concerned about the cramping. States she vomited once earlier today due to the pain. Denies diarrhea, fever. States the pain feels similar to previous ovarian cysts. Historical: - Allergies: 20:49 Bees; cm10 20:49 mosquitos; cm10 - PMHx: 20:49 adhd; Anxiety; Asthma; Bipolar disorder; BORDERLINE PERSONALITY DISORDER; cm10 Hypothyroidism; Ovarian cyst; - PSHx: 20:49 Cholecystectomy; ear surgery; cm10 - Immunization history:: Adult Immunizations up to date. - Infectious Disease History:: Denies. - Social history:: Smoking status: Reported history of juuling and/or vaping. ROS: 23:31 Constitutional: As per HPI kb Exam: 23:31 Constitutional: This is a well developed, well nourished patient who is awake, alert, kb and in no acute distress. Head/Face: Normocephalic, atraumatic. ENT: Moist Mucous membranes Cardiovascular: Regular rate Respiratory: Respirations even and unlabored. No increased work of breathing. Talking in full sentences Abdomen/GI: Soft, non-tender. No distention Skin: Warm, dry with normal turgor. Normal color. MS/ Extremity: Pulses equal, no cyanosis. Neurovascular intact. Full, normal range of motion. Neuro: Awake and alert, GCS 15, oriented to person, place, time, and situation. Vital Signs: 20:48 BP 119 / 84; Pulse 102; Resp 15; Temp 96.8(TE); Pulse Ox 100% on R/A; Weight 63.5 kg; cm10 Height 5 ft. 3 in. ; Pain 7/10; 20:48 Body Mass Index 24.80 (63.50 kg, 160.02 cm) cm10 20:48 Pain Scale: Adult cm10 MDM: 20:43 Medical Screening Exam initiated kb 23:31 Data reviewed: vital signs, nurses notes. kb 23:32 Differential diagnosis: ovarian cyst, uti, . kb 23:33 Test considered but Not performed: Labs: cbc, cmp considered but pt has no abd kb tenderness. CT: ct considered but pt has no abd tenderness. Counseling: I had a detailed discussion with the patient and/or guardian regarding the historical points, exam findings, and any diagnostic results supporting the discharge/admit diagnosis, lab results, radiology results, the need for outpatient follow up, an OB/Gyne specialist, to return to the emergency department if symptoms worsen or persist or if there are any questions or concerns that arise at home. ED course: Pt tolerating po intake, is in no distress, has no abd tenderness. 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 07/15 20:51 Order name: Test, Urine; Complete Time: 23:11 07/15 20:51 Order name: Urinalysis w/ reflexes; Complete Time: 23:11 07/15 21:25 Order name: Transvaginal Study Probe; Complete Time: 21:53 EDMS Administered Medications: 21:24 Drug: Ketorolac IM 30 mg IM once Route: IM; Site: left deltoid; jb4 22:00 Follow up: Response: No adverse reaction; Marked relief of symptoms; Pain is decreased jb4 Disposition Summary: 07/15/24 23:16 Discharge Ordered Notes: Location: Home kb Condition: Stable kb Diagnosis - Lower abdominal pain, unspecified - cramps kb Followup: kb - With: Emergency Department - When: As needed - Reason: Worsening of condition Followup: kb - With: Private Physician - When: 2 - 3 days - Reason: Recheck today's complaints, Continuance of care, Re-evaluation by your physician Discharge Instructions: - Discharge Summary Sheet kb - Pelvic Pain, Female, [id number] kb Forms: - Medication Reconciliation Form kb - Antibiotic Education kb - Prescription Opioid Use kb - Patient Portal Instructions kb - Leadership Thank You Letter kb Addendum: 07/22/2024 09:14 I was immediately available for consultation during this patient's visit. I did not e c2 personally see the patient or discuss the patient with the NIKI. . Signatures: Dispatcher [employer] EDMS Trudi Thomason, MANUFACTURING AREA MANAGER-C MANUFACTURING AREA MANAGER-Jose Arana RN RN jb4 Helene Diop RN RN cm10 Henri Moreno MD MD ec2 Corrections: (The following items were deleted from the chart) 07/15 20:51 20:51 Pelvis Complete+US.RAD.BRZ ordered. EDMS EDMS 20:51 20:51 Test, Urine+UC.LAB.BRZ ordered. EDMS EDMS 20:51 20:51 Urinalysis+U.LAB.BRZ ordered. EDMS EDMS 23:33 23:31 Pt is a 24 year old female who presents for lower abd cramping that started one kb week ago. States she hasn't had a period in 3 months and was concerned about the cramping. States she vomited once earlier today due to the pain. Denies diarrhea, fever . kb
[2024-07-16 17:14] VITALS: BP 119/84; TEMP 96.8; O2SAT 100
== END 2024-07-15 23:38 | disposition home or self-care (01) ==
LOC: ER 20:37
DX: R10.30 Lower abdominal pain, unspecified (principal)
CPT/HCPCS: 76830; 81001; 81025; 96372; 99284

== ENCOUNTER 2024-07-31 19:34 | Emergency (ER) | payer SELFPAY ==
[2024-07-31] MEDS ORDERED: LIDOCAINE 1% 20 ML MDV ONE (20:02)
--- NOTE | 2024-07-31 20:50 | ER ---
Nurse's Notes [facility] Name: Vanda Pompa Age: 24 yrs Sex: Female : 2000 Arrival Date: 07/31/2024 Time: 19:34 Bed 17 Private MD: Diagnosis: Arm Laceration Left/ Open wound of forearm Presentation: 07/31 19:41 Coronavirus screen: Client denies travel out of the [place] in the last 14 days. Ebola rg5 Screen: Patient negative for fever greater than or equal to 101.5 degrees Fahrenheit, and additional compatible Ebola Virus Disease symptoms. Initial Sepsis Screen: Does the patient meet any 2 criteria? No. Patient's initial sepsis screen is negative. Initial Sepsis Screen: Does the patient have a suspected source of infection? No. Patient's initial sepsis screen is negative. Risk Assessment: Do you want to hurt yourself or someone else? Patient reports no desire to harm self or others. Onset of symptoms was July 31, 2024. 19:41 Acuity: FREDY 4 rg5 19:41 Chief complaint: Patient states: patient was making small cuts on his left forearm rg5 because she feels numb and the blade accidentally slides down that it cut herself deeper. 19:41 Method Of Arrival: Law Enforcement: Mikhail BRUCE rg5 Triage Assessment: 19:41 General: Appears in no apparent distress. comfortable, Behavior is calm, cooperative, rg5 appropriate for age. 19:41 Pain: Complains of pain in dorsal aspect of left forearm Pain currently is 4 out of 10 rg5 on a pain scale. Quality of pain is described as aching, Pain began 1 hour ago. 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 - Infectious Disease History:: Denies. - Social history:: Smoking status: unknown. Screenin:41 [facility] ED Fall Risk Assessment (Adult) History of falling in the last 3 months, rg5 including since admission No falls in past 3 months (0 pts) Confusion or Disorientation No (0 pts) Intoxicated or Sedated No (0 pts) Impaired Gait No (0 pts) Mobility Assist Device Used No (0 pt) Altered Elimination No (0 pt) Score/Fall Risk Level 0 - 2 = Low Risk Oriented to surroundings, Maintained a safe environment, Hourly rounding (assess needs \T\ fall precautionary measures) done. Abuse screen: Denies threats or abuse. Nutritional screening: No deficits noted. Tuberculosis screening: No symptoms or risk factors identified. Assessment: 19:41 General: Appears in no apparent distress. Behavior is calm, cooperative, appropriate rg5 for age. 19:41 Neuro: Level of Consciousness is awake, alert, obeys commands, Oriented to person, rg5 place, time. Injury Description: Laceration sustained to dorsal aspect of left forearm is clean, 2.6 to 7.5 cm long. 20:45 Reassessment: No changes from previously documented assessment. Patient and/or family rg5 updated on plan of care and expected duration. Pain level reassessed. Patient is alert, oriented x 3, equal unlabored respirations, skin warm/dry/pink. Vital Signs: 19:41 BP 129 / 96; Pulse 100; Resp 18; Temp 98.5(O); Pulse Ox 100% on R/A; Weight 58.97 kg; rg5 Height 5 ft. 4 in. ; Pain 4/10; 20:45 BP 121 / 87; Pulse 99; Resp 18; Pulse Ox 100% ; Pain 0/10; rg5 19:41 Body Mass Index 22.31 (58.97 kg, 162.56 cm) rg5 19:41 Pain Scale: Adult rg5 20:45 Pain Scale: Adult rg5 Sher Coma Score: 19:41 Eye Response: spontaneous(4). Motor Response: obeys commands(6). Verbal Response: rg5 oriented(5). Total: 15. ED Course: 19:41 Patient arrived in ED. rv1 19:41 Arm band placed on right wrist. rg5 19:41 Patient has correct armband on for positive identification. Bed in low position. Side rg5 rails up X 1. Door closed. Noise minimized. 19:41 Assist provider with laceration repair on left arm that was between 2.6 to 7.5 cm using rg5 sutures. Set up tray. Performed by Chris GRODON Dressed with 4X4s, Patient tolerated. 19:42 Chris Granados FNP-C [facility]. dr5 19:42 Alfonzo Perez MD is Attending Physician. dr5 19:53 Saul Holliday, RN is Primary Nurse. rg5 20:19 Triage completed. rg5 21:06 Provided Education on: post er care. rg5 21:06 Patient did not have IV access during this emergency room visit. rg5 Administered Medications: 20:24 Drug: Lidocaine Infiltration (1 %) 20 ml 20 ml Infiltration once; to bedside {Note: rg5 given by provider.} Volume: 20 ml; Route: Infiltration; 20:50 Drug: Boostrix Tdap IM 0.5 ml IM once; as a single dose Route: IM; Site: left deltoid; rg5 21:05 Follow up: Response: No adverse reaction rg5 Medication: 19:41 VIS not applicable for this client. rg5 Outcome: 20:50 Discharge ordered by . dr5 21:06 Discharged to home ambulatory, rg5 21:06 Condition: stable 21:06 Discharge instructions given to patient, 21:07 Patient left the ED. rg5 Signatures: Anabel Jacobs rv1 Saul Holliday, OLGA RN rg5 hCris Granados FNP-C FNP-Cdr5 Corrections: (The following items were deleted from the chart) 20:34 19:41 Method Of Arrival: Law Enforcement: Arthur BRUCE rg5 rg5
--- NOTE | 2024-07-31 20:51 | EDPHYS ---
Physician Documentation [facility] Name: Vanda Pompa Age: 24 yrs Sex: Female : 2000 Arrival Date: 07/31/2024 Time: 19:34 Bed 17 Private MD: ED Physician Alfonzo Perez HPI: 08/01 01:21 This 24 yrs old Female presents to ER via Law Enforcement with complaints of dr5 Laceration To Arm. 01:21 Patient is a 24-year-old female with history of ADHD, anxiety, asthma, bipolar dr5 disorder, borderline personality disorder coming in with laceration to left arm x 2. Patient reports that she was not suicidal when she was cutting her wrists. Patient reports she has had suicidal ideation in the past and this is not 1 of those episodes. Patient reports that she was just messing around with one of her razor blades and actually cut too deep. Patient currently not suicidal or homicidal.. 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 - Infectious Disease History:: Denies. - Social history:: Smoking status: unknown. ROS: 08/01 01:21 Constitutional: as per hpi dr5 Exam: 01:21 Constitutional: This is a well developed, well nourished patient who is awake, alert, dr5 and in no acute distress. Head/Face: Normocephalic, atraumatic. ENT: Nares patent. No nasal discharge, no septal abnormalities noted. Tympanic membranes are normal and external auditory canals are clear. Oropharynx with no redness, swelling, or masses, exudates, or evidence of obstruction, uvula midline. Mucous membranes moist. Neck: Trachea midline, no thyromegaly or masses palpated, and no cervical lymphadenopathy. Supple, full range of motion without nuchal rigidity, or vertebral point tenderness. No Meningismus. Chest/axilla: Normal chest wall appearance and motion. Nontender with no deformity. No lesions are appreciated. Cardiovascular: Regular rate and rhythm with a normal S1 and S2. Normal PMI, no JVD. No pulse deficits. Respiratory: Lungs have equal breath sounds bilaterally, clear to auscultation. No rales, rhonchi or wheezes noted. No increased work of breathing, no retractions or nasal flaring. Back: No spinal tenderness. No costovertebral tenderness. Full range of motion. MS/ Extremity: Pulses equal, no cyanosis. Neurovascular intact. Full, normal range of motion. Neuro: Awake and alert, GCS 15, oriented to person, place, time, and situation. Cranial nerves II-XII grossly intact. Motor strength 5/5 in all extremities. Sensory grossly intact. Cerebellar exam normal. Normal gait. 01:21 Skin: injury, laceration(s), the wound is approximately 4 cm(s), with a depth of 2 cm(s), of the dorsal aspect of left forearm, the second wound is approximately 1.5 cm(s), with a depth of 1 cm(s), of the left arm, 01:21 Psych: Behavior/mood is pleasant, cooperative, Affect is calm, Oriented to person, place, time, Patient has no thoughts/intents to harm self or others. Judgement / Insight is normal. Memory is normal. Delusions/hallucinations are not present. Vital Signs: 07/31 19:41 BP 129 / 96; Pulse 100; Resp 18; Temp 98.5(O); Pulse Ox 100% on R/A; Weight 58.97 kg; rg5 Height 5 ft. 4 in. ; Pain 4/10; 20:45 BP 121 / 87; Pulse 99; Resp 18; Pulse Ox 100% ; Pain 0/10; rg5 19:41 Body Mass Index 22.31 (58.97 kg, 162.56 cm) rg5 19:41 Pain Scale: Adult rg5 20:45 Pain Scale: Adult rg5 Morrow Coma Score: 19:41 Eye Response: spontaneous(4). Motor Response: obeys commands(6). Verbal Response: rg5 oriented(5). Total: 15. Laceration: 08/01 01:25 Wound Repair of 4cm ( 1.6in ) subcutaneous laceration to left arm. Linear shaped.. dr5 Distal neuro/vascular/tendon intact. Anesthesia: Local anesthetic administered with 3 mls of 1% lidocaine. Wound prep: Moderate cleansing by me, Copious irrigation. Skin closed with 7 4-0 Prolene using simple sutures and sterile technique. Dressed with non-adherent dressing. Patient tolerated well. 01:25 Wound Repair of 1cm ( 0.4in ) subcutaneous laceration to left arm. Linear shaped.. dr5 Distal neuro/vascular/tendon intact. Anesthesia: Local anesthetic administered with 2 mls of 1% lidocaine. Wound prep: Simple cleansing, Copious irrigation. Skin closed with 3 4-0 Prolene using simple sutures and sterile technique. Dressed with non-adherent dressing. Patient tolerated well. MDM: 07/31 19:42 Medical Screening Exam initiated dr5 08/01 01:25 Differential diagnosis: superficial laceration, tendon injury, vascular injury. Data dr5 reviewed: vital signs, nurses notes. I considered the following discharge prescriptions or medication management in the emergency department Medications were administered in the Emergency Department. See MAR. Care significantly affected by the following chronic conditions: ADHD, anxiety, asthma, bipolar disorder. Care significantly affected by the following Social Determinants of Health: Poor access to healthcare and/or lack of insurance, Poor access to transportation, Problems related to employment. Counseling: I had a detailed discussion with the patient and/or guardian regarding the historical points, exam findings, and any diagnostic results supporting the discharge/admit diagnosis, the presence of at least one elevated blood pressure reading (>120/80) during this emergency department visit, the need for outpatient follow up, for definitive care, a family practitioner, to return to the emergency department if symptoms worsen or persist or if there are any questions or concerns that arise at home, Instructed to return in 7 to 10 days for suture removal.. ED course: 10 stitches placed total. Had a long discussion with patient on if she is safe to go home. Roommate and his fiance are at bedside and mother on phone all agreed that she is safe to come home. Patient reports again that she is not suicidal and is in sound mind to make decisions for herself. All questions answered. Laceration repaired without complication. 07/31 20:01 Order name: Dressing - Wound; Complete Time: 20:24 dr5 07/31 20:01 Order name: Prolene, Sutures; Complete Time: 20:24 dr5 07/31 20:01 Order name: Setup Suture Tray; Complete Time: 20:06 dr5 Administered Medications: 07/31 20:24 Drug: Lidocaine Infiltration (1 %) 20 ml 20 ml Infiltration once; to bedside {Note: rg5 given by provider.} Volume: 20 ml; Route: Infiltration; 20:50 Drug: Boostrix Tdap IM 0.5 ml IM once; as a single dose Route: IM; Site: left deltoid; rg5 21:05 Follow up: Response: No adverse reaction rg5 Disposition: 08/01 09:00 Co-signature as Attending Physician, Alfonzo Perez MD I reviewed the patient's care rt provided by the Advanced Practice Provider and agree with the diagnosis and treatment plan. Disposition Summary: 07/31/24 20:50 Discharge Ordered Notes: Location: Home dr5 Condition: Stable dr5 Diagnosis - Arm Laceration Left/ Open wound of forearm dr5 Followup: dr5 - With: Emergency Department - When: As needed - Reason: Worsening of condition Followup: dr5 - With: Private Physician - When: 7 - 10 days - Reason: Staple/Suture removal Discharge Instructions: - Discharge Summary Sheet dr5 - Laceration Care, Adult dr5 Forms: - Medication Reconciliation Form dr5 - Patient Portal Instructions dr5 - Leadership Thank You Letter dr5 Signatures: Alfonzo Perez MD MD rt Saul Holliday RN RN rg5 Chris Granados, HYDROMETER TESTER-C HYDROMETER TESTER-Cdr5
[2024-07-31] MEDS ORDERED: TDAP (DIPHTH,PERTUSS(ACELL),TET VAC) 0.5 ML VIAL IMVAC ONE (20:58)
[2024-08-01 06:24] VITALS: TEMP 98.5; O2SAT 100
[2024-08-01 06:25] VITALS: BP 121/87
== END 2024-07-31 21:07 | disposition home or self-care (01) ==
LOC: ER 19:34
DX: S51.812A Laceration without foreign body of left forearm, initial encounter (principal)
CPT/HCPCS: 12001; 12002; 96372; 99284; J2003

== ENCOUNTER 2024-08-05 14:36 | Emergency (ER) | payer SELFPAY ==
--- NOTE | 2024-08-05 14:58 | ER ---
Nurse's Notes [facility] Name: Vanda Pompa Age: 24 yrs Sex: Female : 2000 Arrival Date: 08/05/2024 Time: 14:36 Bed Waiting Private MD: Diagnosis: Presentation: 08/05 14:56 Chief complaint: Pt reported to registration that she will come back for suture removal kb3 at a less busy time. ED Course: 14:37 Patient arrived in ED. im 14:44 Henri Moreno MD is Attending Physician. ec2 Administered Medications: No medications were administered Outcome: 14:57 Patient left the ED. kb3 Signatures: Olive Hoang RN RN kb3 Snidi Samuels Henri Moreno MD MD ec2
== END 2024-08-05 14:57 | disposition left against medical advice (07) ==
LOC: ER 14:36
DX: Z02.9 Encounter for administrative examinations, unspecified (principal)

== ENCOUNTER 2024-08-05 19:28 | Emergency (ER) | payer SELFPAY ==
--- NOTE | 2024-08-05 19:45 | EDPHYS ---
Physician Documentation [facility] Name: Vanda Pompa Age: 24 yrs Sex: Female : 2000 Arrival Date: 08/05/2024 Time: 19:28 Bed DIS2 Private MD: ED Physician Henri Moreno HPI: 08/05 19:44 This 24 yrs old Female presents to ER via Ambulatory with complaints of ec2 Suture Removal. 19:44 Patient arrives today for evaluation of her sutures. Patient with a well-healed scar ec2 and is asking for suture removal, injury and placement occurred approximately 1 week ago.. Historical: - Allergies: 19:41 Bees; hb 19:41 mosquitos; hb - PMHx: 19:41 Anxiety; Asthma; Bipolar disorder; BORDERLINE PERSONALITY DISORDER; Hypothyroidism; hb Ovarian cyst; adhd; - PSHx: 19:41 Cholecystectomy; ear surgery; hb - Immunization history:: Adult Immunizations up to date. ROS: 19:45 Constitutional: as per hpi ec2 Exam: 19:45 Constitutional: GEN: NAD Head: atraumatic Eyes: EOMI Ears: External ears are ec2 normal. CV: regular rate LUNGS: no respiratory distress ABD: non-distended SKIN: Sutures in place x 8. MSK: no evidence of trauma Vital Signs: 19:39 BP 118 / 68; Pulse 100; Resp 16; Temp 97.2; Pulse Ox 100% on R/A; Weight 54.43 kg; hb Height 5 ft. 3 in. ; Pain 0/10; 19:39 Body Mass Index 21.26 (54.43 kg, 160.02 cm) hb 19:39 Pain Scale: Adult hb Procedures: 19:45 Suture/Staple removal: Removed 8 sutures, from left arm, site appears well healed, ec2 Patient tolerated well. MDM: 19:43 Medical Screening Exam initiated ec2 19:45 Data reviewed: vital signs, nurses notes. ED course: I removed sutures without issue. ec2 Patient discharged home. Return precautions given.. Administered Medications: No medications were administered Disposition Summary: 08/05/24 19:44 Discharge Ordered Notes: Location: Home ec2 Condition: Stable ec2 Diagnosis - Encounter for removal of sutures ec2 Followup: ec2 - With: Private Physician - When: - Reason: Re-evaluation by your physician Discharge Instructions: - Discharge Summary Sheet ec2 - Suture Removal, Care After ec2 Forms: - Medication Reconciliation Form ec2 - Antibiotic Education ec2 - Prescription Opioid Use ec2 - Patient Portal Instructions ec2 - Leadership Thank You Letter ec2 Signatures: Ashlyn Patel, RN RN Henri Macias MD MD ec2
--- NOTE | 2024-08-05 19:45 | ER ---
Nurse's Notes [facility] Name: Vanda Pompa Age: 24 yrs Sex: Female : 2000 Arrival Date: 08/05/2024 Time: 19:28 Bed DIS2 Private MD: Diagnosis: Encounter for removal of sutures Presentation: 08/05 19:39 Chief complaint: Received sutures to left forearm last week, here for removal. hb Coronavirus screen: At this time, the client does not indicate any symptoms associated with coronavirus-19. Ebola Screen: No symptoms or risks identified at this time. Initial Sepsis Screen: Does the patient meet any 2 criteria? No. Patient's initial sepsis screen is negative. Does the patient have a suspected source of infection? No. Patient's initial sepsis screen is negative. Risk Assessment: Do you want to hurt yourself or someone else? Patient reports no desire to harm self or others. Onset of symptoms was August 05, 2024. 19:39 Method Of Arrival: Ambulatory hb 19:39 Acuity: FREDY 4 hb Historical: - Allergies: 19:41 Bees; hb 19:41 mosquitos; hb - PMHx: 19:41 Anxiety; Asthma; Bipolar disorder; BORDERLINE PERSONALITY DISORDER; Hypothyroidism; hb Ovarian cyst; adhd; - PSHx: 19:41 Cholecystectomy; ear surgery; hb - Immunization history:: Adult Immunizations up to date. Vital Signs: 19:39 BP 118 / 68; Pulse 100; Resp 16; Temp 97.2; Pulse Ox 100% on R/A; Weight 54.43 kg; hb Height 5 ft. 3 in. ; Pain 0/10; 19:39 Body Mass Index 21.26 (54.43 kg, 160.02 cm) hb 19:39 Pain Scale: Adult hb ED Course: 19:30 Patient arrived in ED. ra3 19:41 Triage completed. hb 19:42 Arm band placed on. hb 19:43 Henri Moreno MD is Attending Physician. ec2 Administered Medications: No medications were administered Outcome: 19:44 Discharge ordered by . ec2 19:49 Patient left the ED. hb Signatures: Ashlyn Patel RN RN hb Corral, Edwin, MD MD ec2 Yael Telles ra3
[2024-08-05 20:03] VITALS: BP 118/68; TEMP 97.2; O2SAT 100
== END 2024-08-05 19:49 | disposition home or self-care (01) ==
LOC: ER 19:28
DX: Z48.02 Encounter for removal of sutures (principal)

== ENCOUNTER 2024-08-16 22:30 | Emergency (ER) | payer SELFPAY ==
[2024-08-16 23:45] LABS: Specific Gravity 1.021 (1.005-1.030)
--- NOTE | 2024-08-17 00:04 | EDPHYS ---
Physician Documentation [facility] Name: Vanda Pompa Age: 24 yrs Sex: Female : 2000 Arrival Date: 08/16/2024 Time: 22:30 Bed 4 Private MD: ED Physician Mejia Green HPI: 08/16 22:41 This 24 yrs old Female presents to ER via Unassigned with complaints of sp4 seizure . 08/17 17:27 Patient is a 24-year-old female who presents with complaint of possible seizure. sp4 Patient states her mother noticed that she had convulsive episode at home. Patient presents with EMS. Patient has history of ADHD, anxiety, asthma, bipolar disorder, borderline personality disorder as well. . 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 - Infectious Disease History:: Denies. - Family history:: not pertinent. - Social history:: Smoking status: Patient/guardian denies using tobacco products. ROS: 08/17 17:27 Constitutional: Negative for fever, chills, and weight loss, positive for convulsions sp4 All other systems are negative, Exam: 17:27 Constitutional: This is a well developed, well nourished patient who is awake, alert, sp4 and in no acute distress. Head/Face: Normocephalic, atraumatic. Eyes: Pupils equal round and reactive to light, extra-ocular motions intact. Lids and lashes normal. Conjunctiva and sclera are not injected. Cornea within normal limits. Periorbital areas with no swelling, redness, or edema. ENT: Nares patent. No nasal discharge, no septal abnormalities noted. Tympanic membranes are normal and external auditory canals are clear. Oropharynx with no redness, swelling, or masses, exudates, or evidence of obstruction, uvula midline. Mucous membranes moist. Neck: Trachea midline, no thyromegaly or masses palpated, and no cervical lymphadenopathy. Supple, full range of motion without nuchal rigidity, or vertebral point tenderness. Chest/axilla: Normal chest wall appearance and motion. Nontender with no deformity. No lesions are appreciated. Cardiovascular: Regular rate and rhythm with a normal S1 and S2. No gallops, murmurs, or rubs. Normal PMI, no JVD. No pulse deficits. Respiratory: Lungs have equal breath sounds bilaterally, clear to auscultation and percussion. No rales, rhonchi or wheezes noted. No increased work of breathing, no retractions or nasal flaring. Abdomen/GI: Soft, with normal bowel sounds. No distension or tympany. No guarding or rebound. No evidence of tenderness throughout. Back: No spinal tenderness. No costovertebral tenderness. Skin: Warm, dry with normal turgor. Normal color with no rashes, no lesions, and no evidence of cellulitis. MS/ Extremity: Pulses equal, no cyanosis. Neurovascular intact. Full, normal range of motion. Neuro: Awake and alert, GCS 15, oriented to person, place, time, and situation. Cranial nerves II-XII grossly intact. Motor strength 5/5 in all extremities. Sensory grossly intact. Psych: Awake, alert, with orientation to person, place and time. Behavior, mood, and affect are within normal limits Vital Signs: 08/16 22:52 BP 126 / 81; Pulse 106; Resp 18; Pulse Ox 97% ; Weight 63.5 kg; Height 5 ft. 5 in. ; kj2 Pain 5/10; 08/17 00:11 BP 95 / 60; Pulse 74; Resp 18; Temp 97.9; Pulse Ox 97% on R/A; kj2 08/16 22:52 Body Mass Index 23.30 (63.50 kg, 165.1 cm) kj2 08/16 22:52 Pain Scale: Adult kj2 [place] Coma Score: 08/16 23:00 Eye Response: spontaneous(4). Motor Response: obeys commands(6). Verbal Response: kj2 oriented(5). Total: 15. 08/17 17:27 Eye Response: spontaneous(4). Motor Response: obeys commands(6). Verbal Response: sp4 oriented(5). Total: 15. MDM: 08/16 23:13 Medical Screening Exam initiated sp4 08/17 17:29 Differential diagnosis: cerebral vascular accident, drug overdose, cardiac arrhythmia, sp4 seizure, TIA. Data reviewed: vital signs, nurses notes, EMS record, old medical records. ED course: Patient is very well-known to me from prior visits. Patient does not need workup at this time. Patient has no signs of true epilepsy.. Patient was assessed by me multiple times in the past and at this time we do not believe workup is warranted. Patient was advised to see Dr. Willingham with neurology on outpatient basis for evaluation in the office. 08/16 22:41 Order name: Test, Urine; Complete Time: 00:00 sp4 08/16 22:41 Order name: Urine Drug Screen; Complete Time: 05:00 sp4 Administered Medications: No medications were administered Disposition Summary: 08/17/24 00:04 Discharge Ordered Notes: Please see Dr. Willingham in office for evaluation Location: Home sp4 Problem: new sp4 Symptoms: have improved sp4 Condition: Stable sp4 Diagnosis - Convulsive episode at home, Anxiety disorder sp4 Followup: sp4 - With: Leon Willingham MD - When: 7 - 10 days - Reason: Recheck today's complaints Discharge Instructions: - Discharge Summary Sheet sp4 - Medical Screening Exam sp4 Forms: - Patient Portal Instructions sp4 Signatures: Dispatcher [employer] Mejia Villavicencio MD MD sp4 Brina Traylor RN RN kj2
--- NOTE | 2024-08-17 00:04 | ER ---
Nurse's Notes [facility] Name: Vanda Pompa Age: 24 yrs Sex: Female : 2000 Arrival Date: 08/16/2024 Time: 22:30 Bed 4 Private MD: Diagnosis: Convulsive episode at home, Anxiety disorder Presentation: 08/16 22:52 Chief complaint: EMS states: probable seizure. Coronavirus screen: Client denies travel kj2 out of the [place] in the last 14 days. Ebola Screen: No symptoms or risks identified at this time. Initial Sepsis Screen: Does the patient meet any 2 criteria? HR > 90 bpm. Yes Does the patient have a suspected source of infection? No. Patient's initial sepsis screen is negative. Risk Assessment: Do you want to hurt yourself or someone else? Patient reports no desire to harm self or others. Onset of symptoms was August 16, 2024. 22:52 Method Of Arrival: EMS: [facility] 22:52 Acuity: FREDY 3 kj2 Triage Assessment: 22:56 General: Appears in no apparent distress. Behavior is calm, cooperative. Pain: kj2 Complains of pain in headache. Neuro: Level of Consciousness is awake, alert, obeys commands, Oriented to person, place, time, situation. Cardiovascular: Patient's skin is warm and dry. Respiratory: Airway is patent Respiratory effort is unlabored. GI: Abdomen is. : No signs and/or symptoms were reported regarding the genitourinary system. 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 - Infectious Disease History:: Denies. - Family history:: not pertinent. - Social history:: Smoking status: Patient/guardian denies using tobacco products. Screenin:55 [facility] ED Fall Risk Assessment (Adult) History of falling in the last 3 months, kj2 including since admission No falls in past 3 months (0 pts) Confusion or Disorientation No (0 pts) Intoxicated or Sedated No (0 pts) Impaired Gait No (0 pts) Mobility Assist Device Used No (0 pt) Altered Elimination No (0 pt) Score/Fall Risk Level 0 - 2 = Low Risk Maintained a safe environment, Hourly rounding (assess needs \T\ fall precautionary measures) done. Abuse screen: Denies threats or abuse. Denies injuries from another. Nutritional screening: No deficits noted. Tuberculosis screening: No symptoms or risk factors identified. Assessment: 22:58 General: see triage assessment. kj2 08/17 00:10 Reassessment: Patient appears in no apparent distress at this time. Patient and/or kj2 family updated on plan of care and expected duration. Pain level reassessed. Patient is alert, oriented x 3, equal unlabored respirations, skin warm/dry/pink. Vital Signs: 08/16 22:52 BP 126 / 81; Pulse 106; Resp 18; Pulse Ox 97% ; Weight 63.5 kg; Height 5 ft. 5 in. ; kj2 Pain 5/10; 08/17 00:11 BP 95 / 60; Pulse 74; Resp 18; Temp 97.9; Pulse Ox 97% on R/A; kj2 08/16 22:52 Body Mass Index 23.30 (63.50 kg, 165.1 cm) kj2 08/16 22:52 Pain Scale: Adult kj2 Sher Coma Score: 08/16 23:00 Eye Response: spontaneous(4). Motor Response: obeys commands(6). Verbal Response: kj2 oriented(5). Total: 15. 08/17 17:27 Eye Response: spontaneous(4). Motor Response: obeys commands(6). Verbal Response: sp4 oriented(5). Total: 15. ED Course: 08/16 22:33 Patient arrived in ED. sb4 22:40 Mejia Green MD is Attending Physician. sp4 22:50 Brina Traylor RN is Primary Nurse. kj2 22:54 Triage completed. kj2 22:55 Patient has correct armband on for positive identification. Bed in low position. Call kj2 light in reach. Patient has correct armband on for positive identification. Bed in low position. Call light in reach. Provided Education on: call light. 23:15 Urine Drug Screen Sent. kj2 23:15 Test, Urine Sent. kj2 23:16 Seizure precautions initiated. kj2 08/17 00:04 Leon Willingham MD is Referral Physician. sp4 00:12 No provider procedures requiring assistance completed. Patient did not have IV access kj2 during this emergency room visit. 00:13 Arm band placed on Patient placed in an exam room, on a stretcher. kj2 Administered Medications: No medications were administered Medication: 08/16 22:56 VIS not applicable for this client. kj2 Outcome: 08/17 00:04 Discharge ordered by . sp4 00:12 Discharged to home ambulatory, kj2 00:12 Condition: stable 00:12 Discharge instructions given to patient, Instructed on discharge instructions, follow up and referral plans. Demonstrated understanding of instructions, follow-up care, 00:52 Patient left the ED. bm8 Signatures: Nanci Alvarado PA-C PAMikkiC sb4 Mejia Green MD MD sp4 Timo Haider, RN RN bm8 Brina Traylor, OLGA RN kj2
[2024-08-17 00:30] LABS: Barbiturates NEGATIVE (NEGATIVE); Benzodiazepines NEGATIVE (NEGATIVE); Cocaine NEGATIVE (NEGATIVE); METHAMPHETAM NEGATIVE (NEGATIVE); Methadone NEGATIVE (NEGATIVE); Opiates NEGATIVE (NEGATIVE); Phencyclidine NEGATIVE (NEGATIVE); THC Cannibis NEGATIVE (NEGATIVE)
[2024-08-17 00:56] VITALS: O2SAT 97
[2024-08-17 00:58] VITALS: BP 95/60; TEMP 97.9
== END 2024-08-17 00:52 | disposition home or self-care (01) ==
LOC: ER 22:30
DX: R56.9 Unspecified convulsions (principal); F41.9 Anxiety disorder, unspecified
CPT/HCPCS: 80307; 81025; 99283

== ENCOUNTER 2024-08-20 20:38 | Emergency (ER) | payer SELFPAY ==
[2024-08-20] MEDS ORDERED: NA CHLORIDE 0.9% 1,000 ML ONE (21:22)
[2024-08-20] MEDS ORDERED: LORAZEPAM 1 MG TABLET ONE (21:22)
[2024-08-20] MEDS ORDERED: LEVETIRACETAM 500 MG/5 ML VIAL IV ONE (21:22)
[2024-08-20] MEDS ORDERED: NA CHLORIDE 0.9% 50 ML ONE (21:25)
[2024-08-20 21:34] LABS: Absolute Basophils 0.1 K/uL (0-0.5); Absolute Eosinophils 0.1 K/uL (0-0.5); Absolute Lymphocytes (CBC) 2.5 K/uL (0.7-4.9); Absolute Monocytes 0.8 K/uL (0.1-1.3); Absolute Neutrophil 7.3 K/uL (1.8-8.0); Basophils % 0.7 % (0-1.3); Eosinophils % 0.9 % (0-4.4); Hematocrit 42.1 % (36.0-45.0); Hemoglobin 14.5 g/dL (12.0-15.0); Lymphocytes % 23.3 % (15.3-44.8); MCH 29.4 pg (27.0-35.0); MCHC 34.4 g/dL (32.0-36.0); MCV 85.4 fL (80-100); MPV 8.4 fL (7.6-11.3); Monocytes % 7.5 % (3.3-12.3); Neutrophils % 67.6 % (41.7-73.7); Platelets 357 thou/uL (152-406); RBC Red Blood Cell Count 4.93 M/uL (3.86-4.86)
[2024-08-20 21:53] LABS: Specific Gravity 1.009 (1.005-1.030); Sqamous Epithelial <5 /HPF (None Seen); Urine Bacteria None Seen /HPF (<20); Urine Bilirubin NEGATIVE (Negative); Urine Blood Negative (Negative); Urine Clarity Turbid (Clear); Urine Color Colorless (Yellow); Urine Culture Reflex Order NOT NEEDED; Urine Glucose NEGATIVE (Negative); Urine Ketones NEGATIVE (Negative); Urine Microscopic Reflex YN ORDER UMIC; Urine Mucus Slight /HPF (None Seen); Urine Nitrite NEGATIVE (Negative); Urine Protein NEGATIVE (Negative); Urine RBC <5 /HPF (None Seen); Urine Urobilinogen Normal (Normal); Urine WBC <5 /HPF (<5)
[2024-08-20 21:59] LABS: Albumin 3.2 g/dL (3.4-5.0); Albumin/Globulin Ratio 0.8 (1.1-1.8); Anion Gap 9.7 mEq/L (5.0-15.0); Bilirubin Total 0.3 mg/dL (0.2-1.0); Globulin 4.2 g/dL (2.3-3.5); Potassium 3.7 mEq/L (3.5-5.1); Protein, Total 7.4 g/dL (6.4-8.2); Thyroid Stimulating Hormone 2.4 uIU/mL (0.358-3.740)
[2024-08-20] MEDS ORDERED: METOCLOPRAMIDE 10 MG/2mL INJ ONE (22:15)
--- NOTE | 2024-08-20 23:06 | EDPHYS ---
Physician Documentation [facility] Name: Vanda Pompa Age: 24 yrs Sex: Female : 2000 Arrival Date: 08/20/2024 Time: 20:38 Bed 3 Private MD: ED Physician Mejia Green HPI: 08/20 20:40 This 24 yrs old Female presents to ER via Unassigned with complaints of sp4 reported seizure. 08/21 22:04 Patient with history of ADHD, asthma, anxiety, borderline personality disorder, bipolar sp4 disorder, hypothyroidism presents with complaint of several seizures at home. Patient cannot describe seizures. Patient states seizures are witnessed by her mother. . 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 - Infectious Disease History:: Denies. - Social history:: Smoking status: Patient denies any tobacco usage or history of. - Family history:: not pertinent. ROS: 08/21 22:04 Constitutional: Negative for fever, chills, and weight loss, positive for reported sp4 seizure All other systems are negative, Exam: 22:04 Constitutional: This is a well developed, well nourished patient who is awake, alert, sp4 and in no acute distress. Head/Face: Normocephalic, atraumatic. Eyes: Pupils equal round and reactive to light, extra-ocular motions intact. Lids and lashes normal. Conjunctiva and sclera are not injected. Cornea within normal limits. Periorbital areas with no swelling, redness, or edema. ENT: Nares patent. No nasal discharge, no septal abnormalities noted. Tympanic membranes are normal and external auditory canals are clear. Oropharynx with no redness, swelling, or masses, exudates, or evidence of obstruction, uvula midline. Mucous membranes moist. Neck: Trachea midline, no thyromegaly or masses palpated, and no cervical lymphadenopathy. Supple, full range of motion without nuchal rigidity, or vertebral point tenderness. Chest/axilla: Normal chest wall appearance and motion. Nontender with no deformity. No lesions are appreciated. Cardiovascular: Regular rate and rhythm with a normal S1 and S2. No gallops, murmurs, or rubs. Normal PMI, no JVD. No pulse deficits. Respiratory: Lungs have equal breath sounds bilaterally, clear to auscultation and percussion. No rales, rhonchi or wheezes noted. No increased work of breathing, no retractions or nasal flaring. Abdomen/GI: Soft, with normal bowel sounds. No distension or tympany. No guarding or rebound. No evidence of tenderness throughout. Back: No spinal tenderness. No costovertebral tenderness. Skin: Warm, dry with normal turgor. Normal color with no rashes, no lesions, and no evidence of cellulitis. MS/ Extremity: Pulses equal, no cyanosis. Neurovascular intact. Full, normal range of motion. Neuro: Awake and alert, GCS 15, oriented to person, place, time, and situation. Cranial nerves II-XII grossly intact. Motor strength 5/5 in all extremities. Sensory grossly intact. Psych: Awake, alert, with orientation to person, place and time. Behavior, mood, and affect are within normal limits Vital Signs: 08/20 20:49 BP 124 / 76; Pulse 110; Resp 17; Temp 98.1; Pulse Ox 98% on R/A; Weight 68.04 kg; dd2 22:19 BP 113 / 67; Pulse 83; Resp 16; Pulse Ox 100% on R/A; dd2 23:07 BP 108 / 69; Pulse 81; Resp 15; Pulse Ox 100% on R/A; dd2 NIH Stroke Scale Scores: 08/21 22:04 NIHSS Score: 0 sp4 [place] Coma Score: 08/20 20:54 Eye Response: spontaneous(4). Motor Response: obeys commands(6). Verbal Response: dd2 oriented(5). Total: 15. 20:57 Eye Response: spontaneous(4). Motor Response: obeys commands(6). Verbal Response: dd2 oriented(5). Total: 15. 08/21 22:04 Eye Response: spontaneous(4). Motor Response: obeys commands(6). Verbal Response: sp4 oriented(5). Total: 15. MDM: 08/20 23:06 Medical Screening Exam initiated sp4 08/21 22:04 Differential diagnosis: cerebral vascular accident, drug overdose, cardiac arrhythmia, sp4 seizure, TIA. Data reviewed: vital signs, nurses notes, EMS record, old medical records, lab test result(s). Consideration of Admission/Observation Escalation of care including admission/observation considered. ED course: Patient has normal CK normal lactic acid. Unlikely patient had significant convulsive episodes. Patient was advised to seek consultation with his neurologist for outpatient EEG and MRI of the brain. . 08/20 20:46 Order name: CBC with Diff; Complete Time: 22:36 [facility] 08/20 20:46 Order name: CMP; Complete Time: 22:36 [facility] 08/20 20:46 Order name: Lipase; Complete Time: 22:36 [facility] 08/20 20:46 Order name: Test, Urine; Complete Time: 22:36 [facility] 08/20 20:46 Order name: Urinalysis w/ reflexes; Complete Time: 22:36 [facility] 08/20 20:47 Order name: CK; Complete Time: 22:36 [facility] 08/20 20:47 Order name: Lactate w/ 2H reflex if indic.; Complete Time: 22:36 [facility] 08/20 20:47 Order name: TSH; Complete Time: 22:36 [facility] 08/20 20:47 Order name: T4 Free; Complete Time: 22:36 [facility] 08/20 20:46 Order name: IV Saline Lock; Complete Time: 21:23 [facility] 08/20 20:46 Order name: Labs collected and sent; Complete Time: 21:23 sp4 Administered Medications: 08/20 21:40 Drug: Keppra IV 1000 mg IV at bolus once Route: IV; Rate: bolus; Site: right dd2 antecubital; 21:55 Follow up: IV Status: Completed infusion; IV Intake: 60ml dd2 21:40 Drug: NS 0.9% IV 1000 ml IV at 1 bolus Per protocol; to be given as a bolus over 60 dd2 minutes Route: IV; Rate: 1 bolus; Site: right antecubital; 22:40 Follow up: IV Status: Completed infusion; IV Intake: 1000ml dd2 21:40 Drug: LORazepam PO 2 mg PO once Route: PO; dd2 22:10 Follow up: Response: No adverse reaction dd2 22:17 Drug: metoCLOPramide IVP 10 mg IVP once; over 1 to 2 minutes Route: IVP; Site: right dd2 antecubital; 22:32 Follow up: Response: No adverse reaction dd2 Disposition Summary: 08/20/24 23:06 Discharge Ordered Notes: Consider visit with Neurologist for evaluation in the office Location: Home sp4 Problem: new sp4 Symptoms: have improved sp4 Condition: Stable sp4 Diagnosis - Anxiety attack, Pseudoseizures sp4 Followup: sp4 - With: Leon Willingham MD - When: 7 - 10 days - Reason: Recheck today's complaints Discharge Instructions: - Discharge Summary Sheet sp4 - Managing Anxiety, Adult sp4 Forms: - Patient Portal Instructions sp4 NIH Stroke Scale - NIH Stroke Score Date: 08/21/2024 Time: 22:04 Total Score = 0 10. Dysarthria (speech clarity - read or repeat words) - 0(Normal) 11. Extinction and Inattention (visual/tactile/auditory/spatial/personal) - 0(No abnormality) 1a. Level of Consciousness (LOC) - 0(Alert) 1b. Level of Consciousness (LOC) (Month \T\ Age) - 0(Both) 1c. LOC Commands (Open \T\ Closes Eyes/Graphic Design Manager) - 0(Both) 2. Best Gaze (Lateral Gaze Paresis) - 0(Normal) 3. Visual Field Loss - 0(No visual loss) 4. Facial Palsy - 0(Normal) 5a. Left Arm: Motor (10-second hold) - 0(No drift) 5b. Right Arm: Motor (10-second hold) - 0(No drift) 6a. Left Leg: Motor (5-second hold - always test supine) - 0(No drift) 6b. Right Leg: Motor (5-second hold - always test supine) - 0(No drift) 7. Limb Ataxia (finger/nose \T\ heel/woodard - test with eyes open) - 0(Absent) 8. Sensory Loss (pinprick arms/legs/face) - 0(Normal) 9. Best Language: Aphasia (description/naming/reading) - 0(No aphasia) Initials: sp4 Signatures: Dispatcher [employer] EDMS Mejia Green MD MD sp4 JOSE NANCE RN RN dd2 Mary Eagle RN RN aa10 Corrections: (The following items were deleted from the chart) 20:47 20:47 LACTATE+C.LAB.BRZ ordered. EDMS EDMS 20:47 20:47 THYROID STIMULAT HORMONE+C.LAB.BRZ ordered. EDMS EDMS 20:47 20:47 T4 FREE+C.LAB.BRZ ordered. EDMS EDMS
--- NOTE | 2024-08-20 23:06 | ER ---
Nurse's Notes [facility] Name: Vanda Pompa Age: 24 yrs Sex: Female : 2000 Arrival Date: 08/20/2024 Time: 20:38 Bed 3 Private MD: Diagnosis: Anxiety attack, Pseudoseizures Presentation: 08/20 20:49 Chief complaint: EMS states: TONED OUT FOR SEIZURE ACTIVITY. EMS REPORTS PTS STATED dd2 SEIZURES THROUGHOUT THE DAY AND SHE USED WEB MD TO LOOK UP THE SYMPTOMS AND IT ADVISED TO CALL 911. EMS REPORTS NO SEIZURE ACTIVITY EN ROUTE. Coronavirus screen: At this time, the client does not indicate any symptoms associated with coronavirus-19. Ebola Screen: No symptoms or risks identified at this time. Initial Sepsis Screen: Does the patient meet any 2 criteria? No. Patient's initial sepsis screen is negative. Does the patient have a suspected source of infection? No. Patient's initial sepsis screen is negative. Risk Assessment: Do you want to hurt yourself or someone else? Patient reports no desire to harm self or others. Onset of symptoms was August 20, 2024. 20:49 Method Of Arrival: EMS: [facility] dd2 20:49 Acuity: FREDY 3 dd2 Triage Assessment: 20:54 General: Appears in no apparent distress. Behavior is calm, cooperative, appropriate dd2 for age. Pain: Denies pain. EENT: No deficits noted. No signs and/or symptoms were reported regarding the EENT system. Neuro: No deficits noted. Perez Agitation-Sedation Scale (RASS): 0 - Alert and Calm Level of Consciousness is awake, alert, obeys commands, Oriented to person, place, time, situation, Appropriate for age Derrick Follower are equal bilaterally Moves all extremities. Gait is steady, Speech is normal, Facial symmetry appears normal, Pupils are PERRLA, Intact. Cardiovascular: No deficits noted. Patient's skin is warm and dry. Respiratory: No deficits noted. Airway is patent Respiratory effort is even, unlabored, Respiratory pattern is regular, symmetrical. GI: No deficits noted. No signs and/or symptoms were reported involving the gastrointestinal system. Abdomen is non-distended. : No deficits noted. No signs and/or symptoms were reported regarding the genitourinary system. Derm: No deficits noted. No signs and/or symptoms reported regarding the dermatologic system. Musculoskeletal: No deficits noted. No signs and/or symptoms reported regarding the musculoskeletal system. Circulation, motion, and sensation intact. Range of motion: intact in all extremities. 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 - Infectious Disease History:: Denies. - Social history:: Smoking status: Patient denies any tobacco usage or history of. - Family history:: not pertinent. Screenin:57 [facility] ED Fall Risk Assessment (Adult) History of falling in the last 3 months, dd2 including since admission No falls in past 3 months (0 pts) Confusion or Disorientation No (0 pts) Intoxicated or Sedated No (0 pts) Impaired Gait No (0 pts) Mobility Assist Device Used No (0 pt) Altered Elimination No (0 pt) Score/Fall Risk Level 0 - 2 = Low Risk Oriented to surroundings, Maintained a safe environment, Educated pt \T\ family on fall prevention, incl call for assistance when getting out of bed, Assessed \T\ reinforced patient's understanding of fall precautions, Hourly rounding (assess needs \T\ fall precautionary measures) done. Abuse screen: Denies threats or abuse. Nutritional screening: No deficits noted. Tuberculosis screening: No symptoms or risk factors identified. Assessment: 20:57 Reassessment: SEE TRIAGE ASSESSMENT FOR FULL ASSESSMENT. dd2 Vital Signs: 20:49 BP 124 / 76; Pulse 110; Resp 17; Temp 98.1; Pulse Ox 98% on R/A; Weight 68.04 kg; dd2 22:19 BP 113 / 67; Pulse 83; Resp 16; Pulse Ox 100% on R/A; dd2 23:07 BP 108 / 69; Pulse 81; Resp 15; Pulse Ox 100% on R/A; dd2 Sher Coma Score: 20:54 Eye Response: spontaneous(4). Motor Response: obeys commands(6). Verbal Response: dd2 oriented(5). Total: 15. 20:57 Eye Response: spontaneous(4). Motor Response: obeys commands(6). Verbal Response: dd2 oriented(5). Total: 15. 08/21 22:04 Eye Response: spontaneous(4). Motor Response: obeys commands(6). Verbal Response: sp4 oriented(5). Total: 15. NIH Stroke Scale Scores: 22:04 NIHSS Score: 0 sp4 ED Course: 08/20 20:39 Patient arrived in ED. dd2 20:40 Mejia Green MD is Attending Physician. sp4 20:46 JOSE NANCE, OLGA is Primary Nurse. dd2 20:54 Triage completed. dd2 20:54 Arm band placed on right wrist. dd2 20:57 Patient has correct armband on for positive identification. Bed in low position. Call dd2 light in reach. Side rails up X2. Seizure precautions initiated. Client placed on continuous cardiac and pulse oximetry monitoring. NIBP monitoring applied. Door closed. Noise minimized. Warm blanket given. Pillow given. Verbal reassurance given. 20:57 No provider procedures requiring assistance completed. Patient maintains SpO2 dd2 saturation greater than 95% on room air. 21:23 CBC with Diff Sent. aa10 21:23 CMP Sent. aa10 21:23 Lipase Sent. aa10 21:23 T4 Free Sent. aa10 21:23 TSH Sent. aa10 21:23 Lactate w/ 2H reflex if indic. Sent. aa10 21:23 CK Sent. aa10 21:24 Provided Education on: about plan of care. aa10 21:24 Inserted saline lock: 20 gauge in right antecubital area, using aseptic technique. aa10 23:05 Leon Willingham MD is Referral Physician. sp4 23:15 IV discontinued, intact, bleeding controlled, No redness/swelling at site. Pressure dd2 dressing applied. Administered Medications: 21:40 Drug: Keppra IV 1000 mg IV at bolus once Route: IV; Rate: bolus; Site: right dd2 antecubital; 21:55 Follow up: IV Status: Completed infusion; IV Intake: 60ml dd2 21:40 Drug: NS 0.9% IV 1000 ml IV at 1 bolus Per protocol; to be given as a bolus over 60 dd2 minutes Route: IV; Rate: 1 bolus; Site: right antecubital; 22:40 Follow up: IV Status: Completed infusion; IV Intake: 1000ml dd2 21:40 Drug: LORazepam PO 2 mg PO once Route: PO; dd2 22:10 Follow up: Response: No adverse reaction dd2 22:17 Drug: metoCLOPramide IVP 10 mg IVP once; over 1 to 2 minutes Route: IVP; Site: right dd2 antecubital; 22:32 Follow up: Response: No adverse reaction dd2 Medication: 20:57 VIS not applicable for this client. dd2 Intake: 21:55 IV: 60ml; Total: 60ml. dd2 22:40 IV: 1000ml; Total: 1060ml. dd2 Outcome: 23:06 Discharge ordered by . sp4 23:15 Discharged to home ambulatory, dd2 23:15 Condition: stable 23:15 Discharge instructions given to patient, Instructed on discharge instructions, follow up and referral plans. Demonstrated understanding of instructions, follow-up care, 23:15 Patient left the ED. dd2 NIH Stroke Scale - NIH Stroke Score Date: 08/21/2024 Time: 22:04 Total Score = 0 10. Dysarthria (speech clarity - read or repeat words) - 0(Normal) 11. Extinction and Inattention (visual/tactile/auditory/spatial/personal) - 0(No abnormality) 1a. Level of Consciousness (LOC) - 0(Alert) 1b. Level of Consciousness (LOC) (Month \T\ Age) - 0(Both) 1c. LOC Commands (Open \T\ Closes Eyes/Mercerizer Machine Operator) - 0(Both) 2. Best Gaze (Lateral Gaze Paresis) - 0(Normal) 3. Visual Field Loss - 0(No visual loss) 4. Facial Palsy - 0(Normal) 5a. Left Arm: Motor (10-second hold) - 0(No drift) 5b. Right Arm: Motor (10-second hold) - 0(No drift) 6a. Left Leg: Motor (5-second hold - always test supine) - 0(No drift) 6b. Right Leg: Motor (5-second hold - always test supine) - 0(No drift) 7. Limb Ataxia (finger/nose \T\ heel/woodard - test with eyes open) - 0(Absent) 8. Sensory Loss (pinprick arms/legs/face) - 0(Normal) 9. Best Language: Aphasia (description/naming/reading) - 0(No aphasia) Initials: sp4 Signatures: Mejia Green MD MD sp4 JOSE NANCE RN RN dd2 Mary Eagle RN RN aa10
[2024-08-21 04:11] VITALS: TEMP 98.1
[2024-08-21 04:13] VITALS: O2SAT 100
[2024-08-21 04:14] VITALS: BP 108/69
== END 2024-08-20 23:15 | disposition home or self-care (01) ==
LOC: ER 20:38
DX: F41.0 Panic disorder [episodic paroxysmal anxiety] (principal)
CPT/HCPCS: 36415; 80053; 81001; 81025; 82550; 83605; 83690; 84439; 84443; 85025; J1953; J2765; J7030

== ENCOUNTER 2024-11-01 21:54 | Emergency (ER) | payer SELFPAY ==
--- NOTE | 2024-11-02 00:51 | ER ---
Nurse's Notes [facility] Name: Vanda Pompa Age: 24 yrs Sex: Female : 2000 Arrival Date: 11/01/2024 Time: 21:54 Bed 4 Private MD: Diagnosis: Alleged breakthrough seizure Presentation: 11/01 22:45 Chief complaint: Patient states: PT STATES SHE HAD APRROX 3 SEIZURES TODAY, WITNESSED lg3 BY MOTHER. PT STATES SHE TAKES TOPIRAMATE 100 BID AND LACOSAMIDE 200MG BID. PT C/O BODY PAIN ALL OVER. Coronavirus screen: Client denies travel out of the [place] in the last 14 days. Ebola Screen: Patient denies exposure to infectious person. Initial Sepsis Screen: Does the patient meet any 2 criteria? No. Patient's initial sepsis screen is negative. Does the patient have a suspected source of infection? No. Patient's initial sepsis screen is negative. Risk Assessment: Do you want to hurt yourself or someone else? Patient reports no desire to harm self or others. Onset of symptoms was November 01, 2024 at 19:00. 22:45 Method Of Arrival: EMS: [facility] lg3 22:45 Acuity: FREDY 3 lg3 Triage Assessment: 22:47 General: Appears in no apparent distress. comfortable, Behavior is calm, cooperative. lg3 Pain: Complains of pain in head, neck, chest, abdomen, pelvis, right arm, right hand, left arm, left hand, right leg, right foot, left leg and left foot. Neuro: Perez Agitation-Sedation Scale (RASS): 0 - Alert and Calm Level of Consciousness is awake, alert, obeys commands, Oriented to person, place, time, situation. 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 - Infectious Disease History:: Denies. - Social history:: Smoking status: Reported history of juuling and/or vaping. Patient/guardian denies using alcohol, street drugs. Screenin11/03 99:20 [facility] ED Fall Risk Assessment (Adult) History of falling in the last 3 months, cp4 including since admission No falls in past 3 months (0 pts) Confusion or Disorientation No (0 pts) Intoxicated or Sedated No (0 pts) Impaired Gait No (0 pts) Mobility Assist Device Used No (0 pt) Altered Elimination No (0 pt) Score/Fall Risk Level 0 - 2 = Low Risk Oriented to surroundings, Maintained a safe environment, Assessed \T\ reinforced patient's understanding of fall precautions, Hourly rounding (assess needs \T\ fall precautionary measures) done. Abuse screen: Denies threats or abuse. Denies injuries from another. Nutritional screening: No deficits noted. Tuberculosis screening: No symptoms or risk factors identified. Assessment: 00:20 General: Appears in no apparent distress. comfortable, Behavior is calm, cooperative, cp4 appropriate for age. 00:20 Pain: Denies pain. Neuro: Level of Consciousness is awake, alert, obeys commands, cp4 Oriented to person, place, time, situation. Cardiovascular: Patient's skin is warm and dry. Respiratory: Airway is patent Respiratory effort is even, unlabored. GI: No signs and/or symptoms were reported involving the gastrointestinal system. : No signs and/or symptoms were reported regarding the genitourinary system. EENT: No signs and/or symptoms were reported regarding the EENT system. Derm: No signs and/or symptoms reported regarding the dermatologic system. Vital Signs: 11/01 22:45 BP 122 / 86; Pulse 101; Resp 18; Temp 97.2(TE); Pulse Ox 100% ; Weight 72.57 kg; Height lg3 5 ft. 3 in. ; Pain 6/10; 22:45 Body Mass Index 28.34 (72.57 kg, 160.02 cm) lg3 22:45 Pain Scale: Adult lg3 Sher Coma Score: 22:47 Eye Response: spontaneous(4). Motor Response: obeys commands(6). Verbal Response: lg3 oriented(5). Total: 15. ED Course: 21:59 Patient arrived in ED. kmf 21:59 Mee Paredes MD is Attending Physician. sp3 22:47 Triage completed. lg3 11/02 00:20 Bed in low position. Call light in reach. Side rails up X2. cp4 00:20 Seizure precautions initiated. cp4 00:20 No provider procedures requiring assistance completed. Patient did not have IV access cp4 during this emergency room visit. 01:05 Jessica Jose is Primary Nurse. cp4 01:07 Provided Education on: managing seizures.. cp4 01:08 Arm band placed on right wrist. Patient placed in waiting room. cp4 Administered Medications: No medications were administered Medication: 00:20 VIS not applicable for this client. cp4 Outcome: 00:51 Discharge ordered by . sp3 01:07 Discharged to home ambulatory, cp4 01:07 Condition: stable 01:07 Discharge instructions given to Patient left prior to receiving discharge papers. 01:09 Patient left the ED. cp4 Signatures: Alessandra Booth RN RN lg3 Mee Paredes MD MD sp3 Potter, Christina cp4 Bettina Armenta [facility] Corrections: (The following items were deleted from the chart) 11/01 22:49 22:47 PMHx: Hypothyroidism; lg3 lg3
--- NOTE | 2024-11-02 00:51 | EDPHYS ---
Physician Documentation [facility] Name: Vanda Pompa Age: 24 yrs Sex: Female : 2000 Arrival Date: 11/01/2024 Time: 21:54 Bed 4 Private MD: ED Physician Mee Paredes HPI: 11/02 00:37 This 24 yrs old Female presents to ER via EMS with complaints of Seizure. sp3 00:37 24-year-old female with history of bipolar disease, seizure history, borderline sp3 personality disorder presents to the ED with chief complaint multiple seizures over the last several days. She is not on any antiepileptic medications that we know. She has had no seizure activity in the ED. She denies any pain or any other symptoms. ROS otherwise negative.. 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 - Infectious Disease History:: Denies. - Social history:: Smoking status: Reported history of juuling and/or vaping. Patient/guardian denies using alcohol, street drugs. ROS: 11/02 00:48 Constitutional: Negative for fever, chills, and weight loss, Eyes: Negative for injury, sp3 pain, redness, and discharge, ENT: Negative for injury, pain, and discharge, Neck: Negative for injury, pain, and swelling, Cardiovascular: Negative for chest pain, palpitations, and edema, Respiratory: Negative for shortness of breath, cough, wheezing, and pleuritic chest pain, Abdomen/GI: Negative for abdominal pain, nausea, vomiting, diarrhea, and constipation, Back: Negative for injury and pain, MS/Extremity: Negative for injury and deformity, Skin: Negative for injury, rash, and discoloration, Psych: Negative for depression, anxiety, suicide ideation, homicidal ideation, and hallucinations, Allergy/Immunology: Negative for hives, rash, and allergies, Endocrine: Negative for neck swelling, polydipsia, polyuria, polyphagia, and marked weight changes, Hematologic/Lymphatic: Negative for swollen nodes, abnormal bleeding, and unusual bruising, All other systems are negative, Exam: 00:49 Constitutional: This is a well developed, well nourished patient who is awake, alert, sp3 and in no acute distress. Head/Face: Normocephalic, atraumatic. Eyes: Pupils equal round and reactive to light, extra-ocular motions intact. Lids and lashes normal. Conjunctiva and sclera are non-icteric and not injected. Cornea within normal limits. Periorbital areas with no swelling, redness, or edema. Neck: Trachea midline, no thyromegaly or masses palpated, and no cervical lymphadenopathy. Supple, full range of motion without nuchal rigidity, or vertebral point tenderness. No Meningismus. Chest/axilla: Normal chest wall appearance and motion. Nontender with no deformity. No lesions are appreciated. Cardiovascular: Regular rate and rhythm with a normal S1 and S2. No gallops, murmurs, or rubs. Normal PMI, no JVD. No pulse deficits. Respiratory: Lungs have equal breath sounds bilaterally, clear to auscultation and percussion. No rales, rhonchi or wheezes noted. No increased work of breathing, no retractions or nasal flaring. Abdomen/GI: Soft, non-tender, with normal bowel sounds. No distension or tympany. No guarding or rebound. No evidence of tenderness throughout. Back: No spinal tenderness. No costovertebral tenderness. Full range of motion. Skin: Warm, dry with normal turgor. Normal color with no rashes, no lesions, and no evidence of cellulitis. MS/ Extremity: Pulses equal, no cyanosis. Neurovascular intact. Full, normal range of motion. Neuro: Awake and alert, GCS 15, oriented to person, place, time, and situation. Cranial nerves II-XII grossly intact. Motor strength 5/5 in all extremities. Sensory grossly intact. Cerebellar exam normal. Normal gait. Psych: Awake, alert, with orientation to person, place and time. Behavior, mood, and affect are within normal limits. Vital Signs: 11/01 22:45 BP 122 / 86; Pulse 101; Resp 18; Temp 97.2(TE); Pulse Ox 100% ; Weight 72.57 kg; Height lg3 5 ft. 3 in. ; Pain 6/10; 22:45 Body Mass Index 28.34 (72.57 kg, 160.02 cm) lg3 22:45 Pain Scale: Adult lg3 [place] Coma Score: 22:47 Eye Response: spontaneous(4). Motor Response: obeys commands(6). Verbal Response: lg3 oriented(5). Total: 15. MDM: 22:59 Medical Screening Exam initiated sp3 11/02 00:50 Data reviewed: vital signs, nurses notes, lab test result(s), EKG, radiologic studies. sp3 00:50 ED course: 24-year-old female with PMH above. No seizure activity noted in the ED. sp3 There is no indication for any diagnostics. Patient will be reassured and sent home with follow-up to neurology.. Administered Medications: No medications were administered Disposition Summary: 11/02/24 00:51 Discharge Ordered Notes: Location: Home sp3 Condition: Stable sp3 Diagnosis - Alleged breakthrough seizure sp3 Followup: sp3 - With: Private Physician - When: Upon discharge from the Emergency Department - Reason: If symptoms return, Continuance of care Discharge Instructions: - Discharge Summary Sheet sp3 - Managing Non-Epileptic Seizures, Adult sp3 Forms: - Medication Reconciliation Form sp3 - Antibiotic Education sp3 - Prescription Opioid Use sp3 - Patient Portal Instructions sp3 - Leadership Thank You Letter sp3 Signatures: Alessandra Booth RN RN lg3 Mee Paredes MD MD sp3 Corrections: (The following items were deleted from the chart) 11/01 22:49 22:47 PMHx: Hypothyroidism; lg3 lg3 11/02 00:50 00:49 ECG was reviewed by the Attending Physician. EKG demonstrates sinus bradycardia sp3 51 bpm with LVH, nonspecific diffuse ST/T changes without evidence of acute ischemia. sp3
[2024-11-02 02:46] VITALS: BP 122/86; TEMP 97.2; O2SAT 100
== END 2024-11-02 01:09 | disposition home or self-care (01) ==
LOC: ER 21:54
DX: R56.9 Unspecified convulsions (principal); F60.3 Borderline personality disorder
CPT/HCPCS: 99283

== ENCOUNTER 2024-11-02 22:04 | Emergency (ER) | payer SELFPAY ==
[2024-11-02] MEDS ORDERED: NA CHLORIDE 0.9% 1,000 ML ONE (22:18)
[2024-11-02 23:24] LABS: Hematocrit 43.1 % (36.0-45.0); Hemoglobin 14.5 g/dL (12.0-15.0); Lymphocytes % 28.3 % (15.3-44.8); MCH 28.9 pg (27.0-35.0); MCHC 33.7 g/dL (32.0-36.0); MCV 85.8 fL (80-100); MPV 8.4 fL (7.6-11.3); Monocytes % 6.4 % (3.3-12.3); Neutrophils % 63.9 % (41.7-73.7); Platelets 359 thou/uL (152-406); RBC Red Blood Cell Count 5.03 M/uL (3.86-4.86); Red Cell Distribution Width 13.4 % (12.1-15.2)
[2024-11-02 23:25] LABS: Absolute Basophils 0.1 K/uL (0-0.5); Absolute Eosinophils 0.1 K/uL (0-0.5); Absolute Monocytes 0.7 K/uL (0.1-1.3); Absolute Neutrophil 6.9 K/uL (1.8-8.0); Basophils % 0.7 % (0-1.3); Eosinophils % 0.7 % (0-4.4); Nucleated Red Blood Cells % 0.1 % (0-0)
[2024-11-02 23:40] LABS: Glomerular Filtration Rate 104 ml/min (=/>90)
[2024-11-02 23:41] LABS: Albumin/Globulin Ratio 0.9 (1.1-1.8); Globulin 3.9 g/dL (2.3-3.5)
[2024-11-03 00:10] LABS: Arterial Blood Carboxyhemoglob 0.4 % (0-1.5); Blood Gas Oxyhemoglobin 19.7 % (94-97); Blood O2 Saturation 20.2 % (92-98.5)
[2024-11-03 00:11] LABS: Blood Gas THB 14.8 g/dl (12-18)
[2024-11-03 00:25] LABS: PT Prothrombin Time 12.5 SECONDS (10-13.0); PTT, Activated Partial Thromb 31.3 SECONDS (27.2-37.4); Protime INR 1.1
[2024-11-03 03:13] LABS: ALT/SGPT 66 U/L (13-56); AST/SGOT 21 U/L (15-37); Albumin 3.7 g/dL (3.4-5.0); Alkaline Phosphatase 161 U/L (45-117); BUN Blood Urea Nitrogen 9 mg/dL (7-18); Bicarbonate 21 mEq/L (21-32); Bilirubin Total 0.2 mg/dL (0.2-1.0); Creatine Phosphokinase 60 U/L (26-192); Glucose Level 77 mg/dL (74-106); Potassium 3.5 mEq/L (3.5-5.1); Protein, Total 7.6 g/dL (6.4-8.2); Sodium Level 143 mEq/L (136-145)
[2024-11-03 03:48] LABS: Anion Gap 11.5 mEq/L (5.0-15.0); Bilirubin Direct < 0.2 mg/dL (0-0.2)
--- NOTE | 2024-11-03 07:30 | ER ---
Nurse's Notes [facility] Name: Vanda Pompa Age: 24 yrs Sex: Female : 2000 Arrival Date: 11/02/2024 Time: 22:04 Bed 5 Private MD: Diagnosis: Ingestion of topiramate;Alcohol abuse Presentation: 11/02 22:08 Chief complaint: EMS states: took a handfull of topiramate and drank a buzz ball, got vc1 dizzy and fell down. Coronavirus screen: Client denies travel out of the [place] in the last 14 days. Client presents with at least one sign or symptom that may indicate coronavirus-19. Ebola Screen: Patient negative for fever greater than or equal to 101.5 degrees Fahrenheit, and additional compatible Ebola Virus Disease symptoms Patient denies exposure to infectious person. Patient denies travel to an Ebola-affected area in the 21 days before illness onset. No symptoms or risks identified at this time. Initial Sepsis Screen: Does the patient meet any 2 criteria? No. Patient's initial sepsis screen is negative. Does the patient have a suspected source of infection? No. Patient's initial sepsis screen is negative. Risk Assessment: Do you want to hurt yourself or someone else? Patient reports no desire to harm self or others. Onset of symptoms is unknown. Care prior to arrival: None. Activity prior to arrival: None. Mechanism of Injury: No Mechanism of Injury. 22:08 Method Of Arrival: EMS: [facility] vc1 22:08 Acuity: FREDY 2 vc1 22:13 Chief complaint: Patient states: "I took 14 100mg Topiramate. I just wanted to feel vc1 something. I wasn't trying to kill myself I just was feeling numb and wanted to feel something.". 22:22 Note poison control for mild to moderate reaction expect lethargy, vc1 seizures, dizziness, confusion, nausea/vomiting, and hypotension. For a severe reaction metabolic acidosis to coma may occur. Administer fluids, run tox labs, cardiac monitoring and seizure precautions. Max absorption is 4-6 hours from ingestion. Observe patient 8-12 hours from ingestion time. Triage Assessment: 22:12 General: Appears in no apparent distress. comfortable, slender, Behavior is calm, vc1 cooperative, drowsy. Pain: Denies pain. EENT: No deficits noted. No signs and/or symptoms were reported regarding the EENT system. Neuro: Perez Agitation-Sedation Scale (RASS): -1 Drowsy Level of Consciousness is awake, alert, obeys commands, Oriented to person, place, time, situation, Appropriate for age. Cardiovascular: Heart tones S1 S2 present Capillary refill < 3 seconds Patient's skin is warm and dry. Rhythm is sinus tachycardia. Respiratory: Airway is patent Respiratory effort is even, unlabored, Respiratory pattern is regular, symmetrical, Breath sounds are clear bilaterally. GI: No deficits noted. No signs and/or symptoms were reported involving the gastrointestinal system. : No deficits noted. No signs and/or symptoms were reported regarding the genitourinary system. Derm: Skin is intact, is healthy with good turgor, Skin is dry, Skin is normal, Skin temperature is warm. Musculoskeletal: Circulation, motion, and sensation intact. Range of motion: intact in all extremities. 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 - Infectious Disease History:: Denies. - Social history:: Smoking status: Reported history of juuling and/or vaping. - Family history:: not pertinent. Screenin:11 [facility] ED Fall Risk Assessment (Adult) History of falling in the last 3 months, vc1 including since admission No falls in past 3 months (0 pts) Confusion or Disorientation No (0 pts) Intoxicated or Sedated Yes (3 pts) Impaired Gait No (0 pts) Mobility Assist Device Used No (0 pt) Altered Elimination No (0 pt) Score/Fall Risk Level 3 or more points = High Risk Oriented to surroundings, Maintained a safe environment, Educated pt \\T\\ family on fall prevention, incl call for assistance when getting out of bed, Assessed \\T\\ reinforced patient's understanding of fall precautions, Hourly rounding (assess needs \\T\\ fall precautionary measures) done, Remained with patient while ambulating. Abuse screen: Denies threats or abuse. Nutritional screening: No deficits noted. Tuberculosis screening: No symptoms or risk factors identified. Assessment: 23:33 Reassessment: Patient appears in no apparent distress at this time. No changes from vc1 previously documented assessment. Patient and/or family updated on plan of care and expected duration. Pain level reassessed. Patient is alert, oriented x 3, equal unlabored respirations, skin warm/dry/pink. 11/03 00:43 Reassessment: Patient appears in no apparent distress at this time. No changes from vc1 previously documented assessment. Patient and/or family updated on plan of care and expected duration. Pain level reassessed. Patient is alert, oriented x 3, equal unlabored respirations, skin warm/dry/pink. 02:51 Reassessment: Patient appears in no apparent distress at this time. No changes from vc1 previously documented assessment. Patient and/or family updated on plan of care and expected duration. Pain level reassessed. Patient is alert, oriented x 3, equal unlabored respirations, skin warm/dry/pink. 04:22 Reassessment: Patient appears in no apparent distress at this time. No changes from vc1 previously documented assessment. Patient and/or family updated on plan of care and expected duration. Pain level reassessed. Patient is alert, oriented x 3, equal unlabored respirations, skin warm/dry/pink. 05:52 Reassessment: Patient appears in no apparent distress at this time. No changes from vc1 previously documented assessment. Patient and/or family updated on plan of care and expected duration. Pain level reassessed. Patient is alert, oriented x 3, equal unlabored respirations, skin warm/dry/pink. 06:53 Reassessment: Patient appears in no apparent distress at this time. No changes from vc1 previously documented assessment. Patient and/or family updated on plan of care and expected duration. Pain level reassessed. Patient is alert, oriented x 3, equal unlabored respirations, skin warm/dry/pink. 07:13 Reassessment: Denies SI/HI at this time. Pt verbalizes that she is supposed to be ss discharged within 1 hour. Awaiting discharge orders from Dr. Haro. General: Appears in no apparent distress. comfortable, Behavior is calm, cooperative. Neuro: Level of Consciousness is awake, alert, obeys commands, Oriented to person, place, time, situation. Respiratory: Airway is patent Respiratory effort is even, unlabored, Respiratory pattern is regular, symmetrical. GI: Patient currently denies diarrhea, nausea, vomiting. Derm: Skin is pink, warm \\T\\ dry. normal. Vital Signs: 11/02 22:08 BP 107 / 56; Pulse 117; Resp 22; Pulse Ox 94% ; Weight 72.57 kg; Height 5 ft. 3 in. ; vc1 Pain 0/10; 23:33 BP 111 / 79; Pulse 99; Resp 13; Pulse Ox 100% ; vc1 04 00:42 BP 94 / 62; Pulse 95; Resp 18; Pulse Ox 98% ; vc1 02:15 BP 93 / 63; Pulse 88; Resp 17; Pulse Ox 95% ; vc1 04:22 BP 93 / 62; Pulse 76; Resp 14; Pulse Ox 98% ; vc1 05:00 BP 92 / 59; Pulse 89; Resp 17; Pulse Ox 98% ; vc1 06:52 BP 102 / 63; Pulse 83; Resp 15; Pulse Ox 100% ; vc1 07:13 BP 98 / 67; Pulse 73; Resp 14; Pulse Ox 100% on R/A; Pain 0/10; ss 11/02 22:08 Body Mass Index 28.34 (72.57 kg, 160.02 cm) vc1 11/02 22:08 Pain Scale: Adult vc1 07:13 Pain Scale: Adult ss ED Course: 11/02 22:05 Patient arrived in ED. [id number] 22:05 Alfonzo Haro MD is Attending Physician. rt 22:09 Triage completed. vc1 22:10 Arm band placed on right wrist. vc1 22:11 Patient has correct armband on for positive identification. Bed in low position. Call vc1 light in reach. Provided Education on: Plan of care. supervisor cloth winding on. Pulse ox on. NIBP on. 22:20 Rhina Galeano RN is Primary Nurse. vc1 22:54 CPK Sent. vc1 22:54 Test, Serum Sent. vc1 22:54 Acetaminophen Sent. vc1 22:54 Basic Metabolic Panel Sent. vc1 22:54 CBC with Diff Sent. vc1 22:54 ETOH Level Sent. vc1 22:54 Hepatic Function Sent. vc1 22:54 PT-INR Sent. vc1 22:54 Ptt, Activated Sent. vc1 22:54 Salicylate Sent. vc1 11/03 07:13 No provider procedures requiring assistance completed. 07:29 Attending Physician role handed off by Alfonzo Haro MD [facility] 07:29 Dick Fields MD is Attending Physician. [facility] 07:51 IV discontinued, intact, bleeding controlled, No redness/swelling at site. Pressure ss dressing applied. Administered Medications: 11/02 22:53 Drug: NS 0.9% IV 1000 ml IV at 1 bolus Per protocol; to be given as a bolus over 60 vc1 minutes Route: IV; Rate: 1 bolus; Site: right hand; 11/03 00:43 Follow up: IV Status: Completed infusion; IV Intake: 1000ml vc1 Medication: 11/02 22:12 VIS not applicable for this client. vc1 Intake: 11/03 00:43 IV: 1000ml; Total: 1000ml. vc1 Outcome: 07:30 Discharge ordered by . [facility] 07:51 Discharged to home ambulatory, 07:51 Condition: good 07:51 Discharge instructions given to patient, Instructed on Demonstrated understanding of instructions, follow-up care, 07:51 Patient left the ED. ss Signatures: Dick Fields MD MD cha Blanchard, Shelby, OLGA RN Ruchi Andrews [email or web address] Rhina Galeano RN RN vc1 Alfonzo Haro MD MD rt
--- NOTE | 2024-11-03 07:30 | EDPHYS ---
Physician Documentation [facility] Name: Vanda Pompa Age: 24 yrs Sex: Female : 2000 Arrival Date: 11/02/2024 Time: 22:04 Bed 5 Private MD: ED Physician Dick Fields HPI: 11/02 23:03 This 24 yrs old Female presents to ER via EMS with complaints of Overdose. rt 23:03 Patient presents to the ED after ingesting 1400 mg of topiramate and 2 buzz balls about rt 2 hours prior to arrival. Patient reports feeling drowsy, "drunk" but denies other acute complaints, symptoms are moderate in severity, no other aggravating or elevating factors.. 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 - Infectious Disease History:: Denies. - Social history:: Smoking status: Reported history of juuling and/or vaping. - Family history:: not pertinent. ROS: 23:03 Constitutional: Negative for fever, chills, and weight loss, Cardiovascular: Negative rt for chest pain, palpitations, and edema, Respiratory: Negative for shortness of breath, cough, wheezing, and pleuritic chest pain, Abdomen/GI: Negative for abdominal pain, nausea, vomiting, diarrhea, and constipation, Skin: Negative for injury, rash, and discoloration, Neuro: Negative for headache, weakness, numbness, tingling, and seizure, Psych: Negative for depression, anxiety, suicide ideation, homicidal ideation, and hallucinations, Exam: 23:03 Constitutional: This is a well developed, well nourished patient who is awake, alert, rt and in no acute distress. Head/Face: Normocephalic, atraumatic. Chest/axilla: Normal chest wall appearance and motion. Nontender with no deformity. No lesions are appreciated. Cardiovascular: Regular rate and rhythm with a normal S1 and S2. No gallops, murmurs, or rubs. Normal PMI, no JVD. No pulse deficits. Respiratory: Lungs have equal breath sounds bilaterally, clear to auscultation and percussion. No rales, rhonchi or wheezes noted. No increased work of breathing, no retractions or nasal flaring. Abdomen/GI: Soft, non-tender, with normal bowel sounds. No distension or tympany. No guarding or rebound. No evidence of tenderness throughout. Skin: Warm, dry with normal turgor. Normal color with no rashes, no lesions, and no evidence of cellulitis. MS/ Extremity: Pulses equal, no cyanosis. Neurovascular intact. Full, normal range of motion. Neuro: Awake and alert, GCS 15, oriented to person, place, time, and situation. Cranial nerves II-XII grossly intact. Motor strength 5/5 in all extremities. Sensory grossly intact. Cerebellar exam normal. Normal gait. 23:03 ECG was reviewed by the Attending Physician. Vital Signs: 22:08 BP 107 / 56; Pulse 117; Resp 22; Pulse Ox 94% ; Weight 72.57 kg; Height 5 ft. 3 in. ; vc1 Pain 0/10; 23:33 BP 111 / 79; Pulse 99; Resp 13; Pulse Ox 100% ; vc1 05/04 00:42 BP 94 / 62; Pulse 95; Resp 18; Pulse Ox 98% ; vc1 02:15 BP 93 / 63; Pulse 88; Resp 17; Pulse Ox 95% ; vc1 04:22 BP 93 / 62; Pulse 76; Resp 14; Pulse Ox 98% ; vc1 05:00 BP 92 / 59; Pulse 89; Resp 17; Pulse Ox 98% ; vc1 06:52 BP 102 / 63; Pulse 83; Resp 15; Pulse Ox 100% ; vc1 07:13 BP 98 / 67; Pulse 73; Resp 14; Pulse Ox 100% on R/A; Pain 0/10; ss 11/02 22:08 Body Mass Index 28.34 (72.57 kg, 160.02 cm) vc1 11/02 22:08 Pain Scale: Adult vc1 07:13 Pain Scale: Adult ss MDM: 11/02 22:10 Medical Screening Exam initiated rt 11/03 06:59 Differential diagnosis: Ingestion of Topamax, alcohol ingestion. Data reviewed: vital rt signs, nurses notes, lab test result(s), EKG. Consideration of Admission/Observation Escalation of care including admission/observation considered. After discussion with poison control, patient requires 12-hour observation period following ingestion, will observe patient in the emergency department for the rest of that time, she would not require admission as she is symptomatically improving with time.. Care significantly affected by the following chronic conditions: Bipolar disorder. Counseling: I had a detailed discussion with the patient and/or guardian regarding the historical points, exam findings, and any diagnostic results supporting the discharge/admit diagnosis, lab results, the need for outpatient follow up. Response to treatment: the patient's symptoms have markedly improved after treatment. 11/02 22:16 Order name: Acetaminophen; Complete Time: 03:55 rt 11/02 22:16 Order name: Basic Metabolic Panel; Complete Time: 03:55 rt 11/02 22:16 Order name: CBC with Diff; Complete Time: 00:27 rt 11/02 22:16 Order name: ETOH Level; Complete Time: 03:48 rt 11/02 22:16 Order name: Hepatic Function; Complete Time: 03:55 rt 11/02 22:16 Order name: PT-INR; Complete Time: 00:27 rt 11/02 22:16 Order name: Ptt, Activated; Complete Time: 00:27 rt 11/02 22:16 Order name: Salicylate; Complete Time: 03:48 rt 11/02 22:16 Order name: Test, Serum; Complete Time: 00:27 rt 11/02 22:16 Order name: CPK; Complete Time: 03:55 rt 11/02 22:36 Order name: ABG; Complete Time: 00:27 rt 11/02 22:16 Order name: EKG - Nurse/Tech; Complete Time: 22:53 rt 11/02 22:16 Order name: IV Saline Lock; Complete Time: :53 rt 11/02 22:16 Order name: Labs collected and sent; Complete Time: :53 rt 11/02 22:16 Order name: Suicide Screening ([place]); Complete Time: 22:16 rt EC/03 23:03 Rate is 110 beats/min. Rhythm is regular, Sinus tachycardia with No ectopy. Right axis rt deviation noted. AL interval is normal. QRS interval is normal. QT interval is normal. No Q waves. T waves are Normal. No ST changes noted. Interpreted by me. Administered Medications: 22:53 Drug: NS 0.9% IV 1000 ml IV at 1 bolus Per protocol; to be given as a bolus over 60 vc1 minutes Route: IV; Rate: 1 bolus; Site: right hand; 11/03 00:43 Follow up: IV Status: Completed infusion; IV Intake: 1000ml vc1 Disposition Summary: 11/03/24 07:30 Discharge Ordered Notes: Location: Home uzma Problem: new uzma Symptoms: have improved uzma Condition: Stable uzma Diagnosis - Ingestion of topiramate uzma - Alcohol abuse uzma Followup: rt - With: Private Physician - When: 2 - 3 days - Reason: Discharge Instructions: - Discharge Summary Sheet rt - Prescription Drug Misuse Information rt Forms: - Medication Reconciliation Form uzma - Antibiotic Education uzma - Prescription Opioid Use uzma - Patient Portal Instructions uzma - Leadership Thank You Letter uzma Signatures: Dispatcher [employer] Dick Quijano MD MD cha Calcote, Vanessa, RN RN vc1 Alfonzo Perez MD MD rt Corrections: (The following items were deleted from the chart) 11/02 22:17 22:17 ACETAMINOPHEN+C.LAB.BRZ ordered. EDMS EDMS 22:17 22:17 BASIC METABOLIC PANEL+C.LAB.BRZ ordered. EDMS EDMS 22:17 22:17 CBC+H.LAB.BRZ ordered. EDMS EDMS 22:17 22:17 ETHANOL+C.LAB.BRZ ordered. EDMS EDMS 22:17 22:17 HEPATIC FUNCTION+C.LAB.BRZ ordered. EDMS EDMS 22:17 22:17 PROTIME (+INR)+COAG.LAB.BRZ ordered. EDMS EDMS 22:17 22:17 PTT, ACTIVATED+COAG.LAB.BRZ ordered. EDMS EDMS 22:17 22:17 SALICYLATE+C.LAB.BRZ ordered. EDMS EDMS 22:17 22:17 TEST, SERUM+SC.LAB.BRZ ordered. EDMS EDMS 22:17 22:17 CREATINE PHOSPHOKINASE+C.LAB.BRZ ordered. EDMS EDMS
[2024-11-03 08:14] VITALS: O2SAT 100
[2024-11-03 08:16] VITALS: BP 98/67
--- NOTE | 2024-11-04 12:08 | EKG ---
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
== END 2024-11-03 07:51 | disposition home or self-care (01) ==
LOC: ER 22:04
DX: T42.6X1A Poisoning by other antiepileptic and sedative-hypnotic drugs, accidental (unintentional), initial encounter (principal); F10.10 Alcohol abuse, uncomplicated; F60.3 Borderline personality disorder
CPT/HCPCS: 36415; 80048; 80076; 80143; 80179; 82077; 82550; 82805; 84703; 85025; 85610; 85730; 93005; 96360; 96361; 99285; J7030

== ENCOUNTER 2024-11-06 23:14 | Emergency (ER) | payer SELFPAY ==
[2024-11-07] MEDS ORDERED: LORAZEPAM 1 MG TABLET ONE (00:13)
[2024-11-07] MEDS ORDERED: ZIPRASIDONE MESYLA 20 MG/VIAL IM ONE (00:13)
[2024-11-07] MEDS ORDERED: NA CHLORIDE 0.9% 2,000 ML ONE (00:13)
[2024-11-07] MEDS ORDERED: WATER FOR INJ,STERILE 10 ML ONE (00:14)
[2024-11-07 00:28] LABS: Specific Gravity 1.006 (1.005-1.030)
[2024-11-07 00:37] LABS: Absolute Basophils 0.1 K/uL (0-0.5); Absolute Eosinophils 0.1 K/uL (0-0.5); Absolute Lymphocytes (CBC) 2.9 K/uL (0.7-4.9); Absolute Monocytes 0.6 K/uL (0.1-1.3); Absolute Neutrophil 7.5 K/uL (1.8-8.0); Basophils % 0.7 % (0-1.3); Eosinophils % 0.8 % (0-4.4); Hematocrit 43.1 % (36.0-45.0); Hemoglobin 14.7 g/dL (12.0-15.0); Lymphocytes % 25.7 % (15.3-44.8); MCH 28.4 pg (27.0-35.0); MCHC 34.1 g/dL (32.0-36.0); MCV 83.4 fL (80-100); MPV 8.3 fL (7.6-11.3); Monocytes % 5.7 % (3.3-12.3); Neutrophils % 67.1 % (41.7-73.7); Platelets 375 thou/uL (152-406); RBC Red Blood Cell Count 5.17 M/uL (3.86-4.86); Red Cell Distribution Width 13.6 % (12.1-15.2)
[2024-11-07 00:39] LABS: Barbiturates NEGATIVE (NEGATIVE); Benzodiazepines NEGATIVE (NEGATIVE); Cocaine NEGATIVE (NEGATIVE); METHAMPHETAM NEGATIVE (NEGATIVE); Methadone NEGATIVE (NEGATIVE); Opiates NEGATIVE (NEGATIVE); Phencyclidine NEGATIVE (NEGATIVE); THC Cannibis NEGATIVE (NEGATIVE)
[2024-11-07 00:49] LABS: ALT/SGPT 43 U/L (13-56); AST/SGOT 12 U/L (15-37); Alkaline Phosphatase 168 U/L (45-117); Anion Gap 10.2 mEq/L (5.0-15.0); BUN Blood Urea Nitrogen 15 mg/dL (7-18); Bicarbonate 21 mEq/L (21-32); Bilirubin Direct < 0.2 mg/dL (0-0.2); Bilirubin Total 0.2 mg/dL (0.2-1.0); Globulin 3.9 g/dL (2.3-3.5); Glomerular Filtration Rate 85 ml/min (=/>90); Glucose Level 101 mg/dL (74-106); Magnesium 2.1 mg/dL (1.6-2.4); Potassium 3.2 mEq/L (3.5-5.1); Protein, Total 7.9 g/dL (6.4-8.2); Sodium Level 138 mEq/L (136-145)
[2024-11-07 01:32] LABS: PT Prothrombin Time 12.7 SECONDS (10-13.0); Protime INR 1.12
--- NOTE | 2024-11-07 04:09 | ER ---
Nurse's Notes [facility] Name: Vanda Pompa Age: 24 yrs Sex: Female : 2000 Arrival Date: 11/06/2024 Time: 23:14 Bed 3 Private MD: Diagnosis: Acute depressive episode, acute medication overdose, acute suicide attempt Presentation: 11/06 23:15 Chief complaint: EMS states: Pt states that at approximately 10:30 PM she took 9 HCTZ vc1 and 10 Escitalopram because she felt numb and wanted to feel something. 23:15 Coronavirus screen: Client denies travel out of the [place] in the last 14 days. At this vc1 time, the client does not indicate any symptoms associated with coronavirus-19. Ebola Screen: Patient negative for fever greater than or equal to 101.5 degrees Fahrenheit, and additional compatible Ebola Virus Disease symptoms Patient denies exposure to infectious person. Patient denies travel to an Ebola-affected area in the 21 days before illness onset. No symptoms or risks identified at this time. Initial Sepsis Screen: Does the patient meet any 2 criteria? No. Patient's initial sepsis screen is negative. Does the patient have a suspected source of infection? No. Patient's initial sepsis screen is negative. Risk Assessment: Do you want to hurt yourself or someone else? Patient reports no desire to harm self or others. Onset of symptoms was November 07, 2024. 23:15 Method Of Arrival: EMS: [facility] vc1 23:15 Acuity: FREDY 2 vc1 11/07 00:09 Note Poison control case #[id number] Monitor for 6 hours. 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/06 23:30 LMP N/A - Irregular menses, Not vc1 Historical: - Allergies: 23:14 Bees; vc1 23:14 Keppra; vc1 23:14 mosquitos; vc1 - Home Meds: 23:14 oxcarbazepine 600 mg Oral tablet 2 times per day [Active]; vc1 11/07 09:37 olanzapine 5 mg oral tablet 1 tab every day at bedtime [Active]; topiramate 100 mg oral kc6 tablet 1 tab 2 times per day [Active]; lacosamide 200 mg oral tablet 1 tab 2 times per day [Active]; venlafaxine 37.5 mg oral tablet 1 tab [Active]; - PMHx: 11/06 23:14 adhd; Anxiety; Asthma; Bipolar disorder; BORDERLINE PERSONALITY DISORDER; Ovarian cyst; vc1 Seizure; - PSHx: 23:14 Cholecystectomy; ear surgery; vc1 - Immunization history:: Adult Immunizations up to date. - Infectious Disease History:: Denies. - Social history:: Smoking status: Reported history of juuling and/or vaping. - Family history:: not pertinent. Screenin:27 [facility] ED Fall Risk Assessment (Adult) History of falling in the last 3 months, vc1 including since admission No falls in past 3 months (0 pts) Confusion or Disorientation No (0 pts) Intoxicated or Sedated No (0 pts) Impaired Gait No (0 pts) Mobility Assist Device Used No (0 pt) Altered Elimination No (0 pt) Score/Fall Risk Level 0 - 2 = Low Risk Oriented to surroundings, Maintained a safe environment, Educated pt \\T\\ family on fall prevention, incl call for assistance when getting out of bed, Provided non-skid footwear, Hourly rounding (assess needs \\T\\ fall precautionary measures) done. Abuse screen: Denies threats or abuse. Nutritional screening: No deficits noted. Tuberculosis screening: No symptoms or risk factors identified. Assessment: 23:14 General: Appears in no apparent distress. uncomfortable, Behavior is agitated, jb4 uncooperative. Pain: Denies pain. Neuro: Level of Consciousness is awake, alert, Oriented to person, place, time, situation. Cardiovascular: Patient's skin is warm and dry. Respiratory: Airway is patent Respiratory effort is even, unlabored, Respiratory pattern is regular, symmetrical. Derm: Skin is intact, Skin is pink, warm \\T\\ dry. Musculoskeletal: Circulation, motion, and sensation intact. Range of motion: intact in all extremities. 11/07 00:00 Reassessment: Patient appears in no apparent distress at this time. No changes from jb4 previously documented assessment. Patient and/or family updated on plan of care and expected duration. Pain level reassessed. 02:00 Reassessment: Patient appears in no apparent distress at this time. No changes from jb4 previously documented assessment. Patient and/or family updated on plan of care and expected duration. Pain level reassessed. 03:35 General: Pt had told the sitter that she was nauseous. Order obtained for nausea kd3 medications. This RN entered the room to administer medications, pt was in the stretcher, eyes closed, respirations are even and VSS. Meds on hold . 06:16 General: [facility] at bedside for evaluation . kd3 06:52 General: Pt is to be transferred for inpatient. . kd3 07:00 Reassessment: pt with eyes closed, respirations even and unlabored. kc6 07:25 Reassessment: nurse to nurse report given to OLGA Thomas \\T[facility]. kc6 08:26 Reassessment: Patient appears in no apparent distress at this time. No changes from [facility] previously documented assessment. Patient and/or family updated on plan of care and expected duration. Pain level reassessed. Patient is alert, oriented x 3, equal unlabored respirations, skin warm/dry/pink. 09:23 Reassessment: Patient appears in no apparent distress at this time. No changes from [facility] previously documented assessment. Patient and/or family updated on plan of care and expected duration. Pain level reassessed. Patient is alert, oriented x 3, equal unlabored respirations, skin warm/dry/pink. 09:40 Reassessment: pt is awake, A\\T\\O x4 eating breakfast tray with mom at bedside. pt kc6 provided her AM meds, ok per Dr. López. pt and family provided update regarding POC. 10:08 Reassessment: Patient appears in no apparent distress at this time. No changes from [facility] previously documented assessment. Patient and/or family updated on plan of care and expected duration. Pain level reassessed. Patient is alert, oriented x 3, equal unlabored respirations, skin warm/dry/pink. 10:49 Reassessment: Patient appears in no apparent distress at this time. No changes from 6 previously documented assessment. Patient and/or family updated on plan of care and expected duration. Pain level reassessed. Patient is alert, oriented x 3, equal unlabored respirations, skin warm/dry/pink. Psych: 11/06 23:14 Victor Suicide Severity Screening: In the past month, have you wished you were jb4 or wished you could go to sleep and not wake up? Patient responds "No." "In the past month, have you actually had any thoughts of killing yourself?" Patient responds "no." "In your lifetime, have you ever done anything, started to do anything, or prepared to do anything to end your life?" Patient responds "no." Pt denies SI, reports intentionally overdosing on Lexapro and HCTZ to "feel something" and admits to prior incident earlier in the week. Subjective: Patient's mood is elevated, Delusions are denied, Hallucinations are denied Having thoughts of wanting to feel something. Objective: Patient is uncooperative, Speech is loud, rapid. Interventions: Removed personal items and placed in bag. Patient placed in hospital gown. Searched person for dangerous items. Urine collected and sent for urine drug test. Belonging list filled out. Safety Checks: Personal items have been removed. Door is open. Visitors are present. Pt denies substance abuse. Commitment: Patient will be an involuntary commitment. Vital Signs: 11/07 00:06 BP 118 / 84; Pulse 82; Resp 17; Temp 97.9; Pulse Ox 100% on R/A; Weight 71.21 kg; vk Height 5 ft. 3 in. ; 03:28 BP 106 / 76; Pulse 99; Resp 16; Pulse Ox 98% on R/A; kd3 06:53 BP 95 / 69; Pulse 94; Resp 19; Pulse Ox 97% on R/A; kd3 08:26 BP 102 / 73; Pulse 90; Resp 18 S; Temp 98; Pulse Ox 98% on R/A; Pain 0/10; kc6 10:49 BP 110 / 80; Pulse 85; Resp 17 S; Temp 98.2; Pulse Ox 100% on R/A; Pain 0/10; kc6 00:06 Body Mass Index 27.81 (71.21 kg, 160.02 cm) vk 08:26 Pain Scale: Adult kc6 10:49 Pain Scale: Adult kc6 ED Course: 11/06 23:14 Arm band placed on right wrist. vc1 23:14 Patient has correct armband on for positive identification. Bed in low position. vc1 Patient is placed in psych hold. 23:14 Provided Education on: Plan of care. vc1 23:17 Patient arrived in ED. sp4 23:18 Mejia Green MD is Attending Physician. sp4 23:27 Opal Scruggs, RN is Primary Nurse. kd3 05 00:08 Urine collected: clean catch specimen, clear, EKG done, by ED staff. vk 00:17 Triage completed. vc1 01:00 Initial lab(s) drawn, by me, sent to lab. Inserted saline lock: 22 gauge in left vk antecubital area, using aseptic technique. Blood collected. Flushed with 10 mL NS. 05:10 initiated consult with [facility] spoke with mikayla. vk 06:36 [facility] arrived \\T\\0600 stated that patient will need to be inpatient , handed vk transfer to day shift due to needing transfer warrent. 06:50 initiated faxed documents to the following facilities: [facility], [facility], [facility], [facility], [facility]. 06:53 No provider procedures requiring assistance completed. kd3 07:00 Patient has correct armband on for positive identification. Bed in low position. Side kc6 rails up X2. Sitter at bedside. Door closed. Noise minimized. Visitors limited. Lights dimmed. Moved to private room. Warm blanket given. Pillow given. Verbal reassurance given. Patient is placed in psych hold. 07:19 Martha from [facility] called for nurse to nurse. ty 10:50 Patient transferred, IV remains in place. IV discontinued, intact, bleeding controlled, kc6 No redness/swelling at site. Pressure dressing applied. Administered Medications: 01:03 Discontinued: ns 0.9% 1000 ml IV at 1000 ml once; to be given as a bolus over 60 minutesjb4 01:03 Discontinued: ns 0.9% 1000 ml IV at 1000 ml once; to be given as a bolus over 60 minutesjb4 00:27 Drug: LORazepam PO 2 mg PO once Route: PO; jb4 00:31 Drug: Geodon IM 40 mg IM once Route: IM; Site: right gluteus; jb4 00:40 Drug: NS 0.9% IV 1000 ml IV at 1000 ml once; to be given as a bolus over 60 minutes jb4 Route: IV; Rate: 1000 ml; Site: left antecubital; 00:40 Drug: NS 0.9% IV 1000 ml IV at 1000 ml once; to be given as a bolus over 60 minutes jb4 Route: IV; Rate: 1000 ml; Site: left antecubital; 09:40 Not Given (Other Intervention Used): [id number] mg IM once kc6 Medication: 00:22 VIS not applicable for this client. vc1 Outcome: 04:09 ER care complete, transfer ordered by . sp4 10:49 Transferred Transfer form completed. Note: to [facility] kc6 10:49 Condition: good 10:49 Instructed on the need for transfer, 10:50 Patient left the ED. kc6 Signatures: Jose Vera, RN RN jb4 Opal Scruggs RN RN kd3 Rhina Galeano RN RN vc1 Elizabeth Smith RN RN kc6 Mejia Green MD MD sp4 Maggie Rendon Tylor ty
--- NOTE | 2024-11-07 04:09 | EDPHYS ---
Physician Documentation [facility] Name: Vanda Pompa Age: 24 yrs Sex: Female : 2000 Arrival Date: 11/06/2024 Time: 23:14 Bed 3 Private MD: ED Physician Mejia Green HPI: 11/06 23:18 This 24 yrs old Female presents to ER via Unassigned with complaints of sp4 Medication overdose . 23:18 Patient at home consumed 9 tablets of hydrochlorothiazide 25 mg each, patient also sp4 consumed escitalopram 10 tablets patient reports 10 mg each. Poison control advised 6-hour monitoring and blood pressure monitoring. Case #[id number]. . 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 LMP N/A - Irregular menses, Not vc1 Historical: - Allergies: 23:14 Bees; vc1 23:14 Keppra; vc1 23:14 mosquitos; vc1 - Home Meds: 23:14 oxcarbazepine 600 mg Oral tablet 2 times per day [Active]; vc1 11/07 09:37 olanzapine 5 mg oral tablet 1 tab every day at bedtime [Active]; topiramate 100 mg oral kc6 tablet 1 tab 2 times per day [Active]; lacosamide 200 mg oral tablet 1 tab 2 times per day [Active]; venlafaxine 37.5 mg oral tablet 1 tab [Active]; - PMHx: 11/06 23:14 adhd; Anxiety; Asthma; Bipolar disorder; BORDERLINE PERSONALITY DISORDER; Ovarian cyst; vc1 Seizure; - PSHx: 23:14 Cholecystectomy; ear surgery; vc1 - Immunization history:: Adult Immunizations up to date. - Infectious Disease History:: Denies. - Social history:: Smoking status: Reported history of juuling and/or vaping. - Family history:: not pertinent. ROS: 11/07 01:31 Constitutional: Negative for fever, chills, and weight loss, positive for acute sp4 overdose All other systems are negative, Exam: 01:31 Constitutional: This is a well developed, well nourished patient who is awake, alert, sp4 and in no acute distress. Head/Face: Normocephalic, atraumatic. Eyes: Pupils equal round and reactive to light, extra-ocular motions intact. Lids and lashes normal. Conjunctiva and sclera are not injected. Cornea within normal limits. Periorbital areas with no swelling, redness, or edema. ENT: Nares patent. No nasal discharge, no septal abnormalities noted. Tympanic membranes are normal and external auditory canals are clear. Oropharynx with no redness, swelling, or masses, exudates, or evidence of obstruction, uvula midline. Mucous membranes moist. Neck: Trachea midline, no thyromegaly or masses palpated, and no cervical lymphadenopathy. Supple, full range of motion without nuchal rigidity, or vertebral point tenderness. Chest/axilla: Normal chest wall appearance and motion. Nontender with no deformity. No lesions are appreciated. Cardiovascular: Regular rate and rhythm with a normal S1 and S2. No gallops, murmurs, or rubs. Normal PMI, no JVD. No pulse deficits. Respiratory: Lungs have equal breath sounds bilaterally, clear to auscultation and percussion. No rales, rhonchi or wheezes noted. No increased work of breathing, no retractions or nasal flaring. Abdomen/GI: Soft, with normal bowel sounds. No distension or tympany. No guarding or rebound. No evidence of tenderness throughout. Back: No spinal tenderness. No costovertebral tenderness. Skin: Warm, dry with normal turgor. Normal color with no rashes, no lesions, and no evidence of cellulitis. MS/ Extremity: Pulses equal, no cyanosis. Neurovascular intact. Full, normal range of motion. Neuro: Awake and alert, GCS 15, oriented to person, place, time, and situation. Cranial nerves II-XII grossly intact. Motor strength 5/5 in all extremities. Sensory grossly intact. Psych: Awake, alert, with orientation to person, place and time. Behavior, mood, and affect are within normal limits 01:31 ECG was reviewed by the Attending Physician. EKG at 2354 normal sinus rhythm, right axis deviation otherwise normal Vital Signs: 00:06 BP 118 / 84; Pulse 82; Resp 17; Temp 97.9; Pulse Ox 100% on R/A; Weight 71.21 kg; vk Height 5 ft. 3 in. ; 03:28 BP 106 / 76; Pulse 99; Resp 16; Pulse Ox 98% on R/A; kd3 06:53 BP 95 / 69; Pulse 94; Resp 19; Pulse Ox 97% on R/A; kd3 08:26 BP 102 / 73; Pulse 90; Resp 18 S; Temp 98; Pulse Ox 98% on R/A; Pain 0/10; kc6 10:49 BP 110 / 80; Pulse 85; Resp 17 S; Temp 98.2; Pulse Ox 100% on R/A; Pain 0/10; kc6 00:06 Body Mass Index 27.81 (71.21 kg, 160.02 cm) vk 08:26 Pain Scale: Adult kc6 10:49 Pain Scale: Adult kc6 MDM: 11/06 23:59 Medical Screening Exam initiated 11/07 01:33 Differential diagnosis: drug withdrawal. acute psychotic break, depression, psychosis sp4 secondary to non-compliance, Acute overdose. Data reviewed: vital signs, nurses notes, EMS record, old medical records, lab test result(s), EKG. Consideration of Admission/Observation Escalation of care including admission/observation considered. ED course: At this time we will contact [facility] to get an idea if patient should be committed to psychiatric institution. 11/06 23:18 Order name: Acetaminophen; Complete Time: [facility] 11/06 23:18 Order name: Basic Metabolic Panel; Complete Time: [facility] 11/06 23:18 Order name: CBC with Diff; Complete Time: [facility] 11/06 23:18 Order name: ETOH Level; Complete Time: [facility] 11/06 23:18 Order name: Hepatic Function; Complete Time: [facility] 11/06 23:18 Order name: PT-INR; Complete Time: 04: [facility] 11/06 23:18 Order name: Test, Urine; Complete Time: [facility] 11/06 23:18 Order name: Ptt, Activated; Complete Time: 04: [facility] 11/06 23:18 Order name: Salicylate; Complete Time: [facility] 11/06 23:18 Order name: Urine Drug Screen; Complete Time: sp4 11/07 00:25 Order name: Magnesium; Complete Time: [facility] 11/06 23:18 Order name: EKG - Nurse/Tech; Complete Time: 00: [facility] 11/06 23:18 Order name: IV Saline Lock; Complete Time: 00: sp4 11/06 23:18 Order name: Labs collected and sent; Complete Time: 00: sp4 11/06 23:18 Order name: Suicide Precautions; Complete Time: 00: sp4 11/06 23:18 Order name: Suicide Screening ([place]); Complete Time: 00: sp4 11/07 09:40 Order name: Misc. Order: May give patient her home medications; Complete Time: 09:40 ms3 EC/07 23:54 Rate is 94 beats/min. Rhythm is regular, Normal Sinus Rhythm. Right axis deviation sp4 noted. MT interval is normal. QRS interval is normal. QT interval is normal. No Q waves. T waves are Normal. No ST changes noted. Clinical impression: No evidence of ischemia. Interpreted by me. Reviewed by me. Administered Medications: 11/07 01:03 Discontinued: ns 0.9% 1000 ml IV at 1000 ml once; to be given as a bolus over 60 minutesjb4 01:03 Discontinued: ns 0.9% 1000 ml IV at 1000 ml once; to be given as a bolus over 60 minutesjb4 00:27 Drug: LORazepam PO 2 mg PO once Route: PO; jb4 00:31 Drug: Geodon IM 40 mg IM once Route: IM; Site: right gluteus; jb4 00:40 Drug: NS 0.9% IV 1000 ml IV at 1000 ml once; to be given as a bolus over 60 minutes jb4 Route: IV; Rate: 1000 ml; Site: left antecubital; 00:40 Drug: NS 0.9% IV 1000 ml IV at 1000 ml once; to be given as a bolus over 60 minutes jb4 Route: IV; Rate: 1000 ml; Site: left antecubital; 09:40 Not Given (Other Intervention Used): [id number] mg IM once kc6 Disposition Summary: 11/07/24 04:09 Transfer Ordered Notes: Transfer Location: Psych Facility sp4 Reason: Higher level of care sp4 Condition: Stable sp4 Problem: new sp4 Symptoms: have improved sp4 Accepting Physician: attending psychiatrist(11/07/24 10:50) kc6 Diagnosis - Acute depressive episode, acute medication overdose, acute suicide attempt sp4 Forms: - Medication Reconciliation Form sp4 - SBAR form sp4 Signatures: Dispatcher [employer] Jose Rankin RN RN jb4 LópezAston, DO ms3 Rhina Galeano, RN RN vc1 Elizabeth Smith, RN RN kc6 Mejia Green MD MD sp4 Corrections: (The following items were deleted from the chart) 11/06 23:18 23:18 ACETAMINOPHEN+C.LAB.BRZ ordered. EDMS EDMS 23:18 23:18 BASIC METABOLIC PANEL+C.LAB.BRZ ordered. EDMS EDMS 23:18 23:18 CBC+H.LAB.BRZ ordered. EDMS EDMS 23:18 23:18 ETHANOL+C.LAB.BRZ ordered. EDMS EDMS 23:18 23:18 HEPATIC FUNCTION+C.LAB.BRZ ordered. EDMS EDMS 23:18 23:18 PROTIME (+INR)+COAG.LAB.BRZ ordered. EDMS EDMS 23:18 23:18 Test, Urine+UC.LAB.BRZ ordered. EDMS EDMS 23:18 23:18 PTT, ACTIVATED+COAG.LAB.BRZ ordered. EDMS EDMS 23:18 23:18 SALICYLATE+C.LAB.BRZ ordered. EDMS EDMS 23:18 23:18 URINE DRUG SCREEN+UC.LAB.BRZ ordered. EDMS EDMS 11/07 00:25 00:13 MAGNESIUM+C.LAB.BRZ ordered. EDMS EDMS 10:50 04:09 attending psychiatrist sp4 kc6
[2024-11-07 11:02] VITALS: BP 110/80; TEMP 98.2; O2SAT 100
--- NOTE | 2024-11-07 11:39 | EKG ---
Test Date: 2024-11-06 Test Time: 23:54:42 Proof Inspector: ZINA MEASUREMENT RESULTS: Intervals: Rate: 94 AR: 146 QRSD: 86 QT: 374 QTc: 467 [place]: P: 34 AR: 146 QRS: 116 T: 49 INTERPRETIVE STATEMENTS: Normal sinus rhythm Right axis deviation Abnormal ECG Compared to ECG 11/02/2024 22:18:49 Sinus tachycardia no longer present Electronically Signed On 11-07-24 11:38:08 CDT by Manjeet Ulrich
== END 2024-11-07 10:50 ==
LOC: ER 23:14
DX: T50.2X2A Poisoning by carbonic-anhydrase inhibitors, benzothiadiazides and other diuretics, intentional self-harm, initial encounter (principal); F32.A Depression, unspecified
CPT/HCPCS: 36415; 80048; 80076; 80143; 80179; 80307; 81025; 82077; 83735; 85025; 85610; 85730; 93005; J3486; J7030

== ENCOUNTER 2024-11-15 19:27 | Emergency (ER) | payer SELFPAY ==
[2024-11-15] MEDS ORDERED: LACOSAMIDE 50 MG TABLET ONE (21:10)
[2024-11-15] MEDS ORDERED: TOPIRAMATE 25 MG TAB ONE (21:20)
[2024-11-15 21:44] LABS: Absolute Basophils 0.1 K/uL (0-0.5); Absolute Lymphocytes (CBC) 2.7 K/uL (0.7-4.9); Absolute Monocytes 0.6 K/uL (0.1-1.3); Absolute Neutrophil 9.1 K/uL (1.8-8.0); Basophils % 0.5 % (0-1.3); Eosinophils % 0.1 % (0-4.4); Hemoglobin 14.6 g/dL (12.0-15.0); Lymphocytes % 21.5 % (15.3-44.8); MCH 28.9 pg (27.0-35.0); MCV 84.9 fL (80-100); MPV 9.1 fL (7.6-11.3); Monocytes % 4.5 % (3.3-12.3); Neutrophils % 73.4 % (41.7-73.7); Nucleated Red Blood Cells % 0.1 % (0-0); Platelets 295 thou/uL (152-406); RBC Red Blood Cell Count 5.06 M/uL (3.86-4.86); Red Cell Distribution Width 13.8 % (12.1-15.2)
[2024-11-15] MEDS ORDERED: ONDANSETRON 4 MG/2 ML VIAL ONE ×2 (22:58→23:53)
--- NOTE | 2024-11-15 23:55 | EDPHYS ---
Physician Documentation [facility] Name: Vanda Pompa Age: 24 yrs Sex: Female : 2000 Arrival Date: 11/15/2024 Time: 19:27 Bed 10 Private MD: ED Physician Aston López HPI: 11/15 21:27 This 24 yrs old Female presents to ER via EMS with complaints of Numbness. ms3 21:27 . 24-year-old female past medical history of bipolar, borderline personality disorder, ms3 asthma, ovarian cyst, seizures presents to the emergency department for seizure and facial numbness. Patient states she has been off her medications for 4 days as she did not want take her medications and drink. Patient states she is on topiramate 100 mg and lacosamide 200 mg. Patient denies fevers, chills, nausea, vomiting. 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 iw Historical: - Allergies: 19:45 Bees; iw 19:45 Keppra; iw 19:45 mosquitos; iw - Home Meds: 19:45 lacosamide 200 mg Oral tablet 1 tab 2 times per day [Active]; olanzapine 5 mg Oral iw tablet 1 tab every day at bedtime [Active]; oxcarbazepine 600 mg Oral tablet 2 times per day [Active]; topiramate 100 mg Oral tablet 1 tab 2 times per day [Active]; venlafaxine 37.5 mg Oral tablet 1 tab [Active]; - PMHx: 19:45 Bipolar disorder; BORDERLINE PERSONALITY DISORDER; Asthma; Ovarian cyst; Seizure; iw Anxiety; adhd; - PSHx: 19:45 Cholecystectomy; ear surgery; iw - Immunization history:: Adult Immunizations up to date. - Infectious Disease History:: Denies. - Social history:: Smoking status: Reported history of juuling and/or vaping. ROS: 21:27 Constitutional: Negative for fever, and chills. Cardiovascular: Negative for chest ms3 pain, and palpitations. Respiratory: Negative for shortness of breath, cough, wheezing, and pleuritic chest pain, Abdomen/GI: Negative for abdominal pain, nausea, vomiting, diarrhea, and constipation, : Negative for injury, bleeding, discharge, and swelling, Skin: Negative for injury, rash, and discoloration, 21:27 Neuro: Positive for seizure activity, Facial numbness- bilateral, Exam: 21:27 Constitutional: This is a well developed, well nourished patient who is awake, alert, ms3 and in no acute distress. Chest/axilla: Normal chest wall appearance and motion. Nontender with no deformity. Cardiovascular: Regular rate and rhythm with a normal S1 and S2. No gallops, murmurs, or rubs. Normal PMI, no JVD. No pulse deficits. Respiratory: Lungs have equal breath sounds bilaterally, clear to auscultation and percussion. No rales, rhonchi or wheezes noted. No increased work of breathing, no retractions or nasal flaring. Abdomen/GI: Soft, non-tender, with normal bowel sounds. No distension or tympany. No guarding or rebound. No evidence of tenderness throughout. Skin: Warm, dry with normal turgor. Normal color with no rashes, no lesions, and no evidence of cellulitis. MS/ Extremity: Pulses equal, no cyanosis. Neurovascular intact. Full, normal range of motion. Vital Signs: 19:43 BP 107 / 79; Pulse 91; Resp 16; Temp 98.7; Pulse Ox 100% on R/A; Weight 68.04 kg; iw Height 5 ft. 3 in. ; 11/16 00:07 BP 110 / 80; Pulse 94; Resp 18; Pulse Ox 99% ; iw 11/15 19:43 Body Mass Index 26.57 (68.04 kg, 160.02 cm) iw MDM: 11/15 20:38 Medical Screening Exam initiated ms3 21:34 Differential diagnosis: metabolic disorder, Seizure vs Medication non-complaince. ms3 TNKase (Tenecteplase) Screening: Not Applicable. 23:56 Data reviewed: vital signs, nurses notes, lab test result(s), and as a result, I will ms3 discharge patient. I considered the following discharge prescriptions or medication management in the emergency department Medications were administered in the Emergency Department. See MAR. Counseling: I had a detailed discussion with the patient and/or guardian regarding the historical points, exam findings, and any diagnostic results supporting the discharge/admit diagnosis, lab results, the need for outpatient follow up, to return to the emergency department if symptoms worsen or persist or if there are any questions or concerns that arise at home. Special discussion: I discussed with the patient/guardian in detail that at this point there is no indication for admission to the hospital. It is understood, however, that if the symptoms persist or worsen the patient needs to return immediately for re-evaluation. ED course: Discussed labs with patient. Patient to follow-up with neurology in 2 to 3 days. Patient understands and agrees with plan. All questions were answered. Return precautions discussed include worsening symptoms, or any other concerns. Discussed medication compliance with patient. Patient stands agrees plan. 11/15 20:31 Order name: CBC with Diff; Complete Time: 23:41 ms3 11/15 22:00 Order name: Misc. Order: RECOLLECT GREEN TOP rv1 Administered Medications: 21:36 Drug: Topamax PO 100 mg PO once Route: PO; br2 22:15 Follow up: Response: No adverse reaction iw 21:36 Drug: lacosamide Extended Release 24 hour Capsule 200 mg PO once Route: PO; br2 22:15 Follow up: Response: No adverse reaction iw 11/16 00:04 Drug: Ondansetron IVP 4 mg IVP once; over 2 minutes Route: IVP; Site: right antecubital;iw 00:06 Follow up: Response: No adverse reaction iw 00:05 Not Given (wrong doses): ondansetron 2 mg IVP once; over 2 minutes iw 00:05 Drug: Ondansetron IVP 4 mg IVP once; over 2 minutes Route: IVP; Site: right forearm; iw 00:06 Follow up: Response: Medication administered at discharge. iw Disposition: 11/15 23:57 Chart complete. ms3 Disposition Summary: 11/15/24 23:55 Discharge Ordered Notes: Location: Home ms3 Condition: Stable ms3 Diagnosis - Other seizures ms3 Followup: ms3 - With: Leon Willingham MD - When: 2 - 3 days - Reason: Recheck today's complaints Discharge Instructions: - Discharge Summary Sheet ms3 - Seizure, Adult ms3 Forms: - Medication Reconciliation Form ms3 - Antibiotic Education ms3 - Prescription Opioid Use ms3 - Patient Portal Instructions ms3 - Leadership Thank You Letter ms3 Signatures: Dispatcher [employer] Staci Driscoll RN RN iw Aston López DO DO ms3 Anabel Jacobs rv1 Elvia St, RN RN br2
--- NOTE | 2024-11-15 23:55 | ER ---
Nurse's Notes [facility] Name: Vanda Pompa Age: 24 yrs Sex: Female : 2000 Arrival Date: 11/15/2024 Time: 19:27 Bed 10 Private MD: Diagnosis: Other seizures Presentation: 11/15 19:43 Chief complaint: Patient states: has not been taking her seizure meds X 4 days, she is iw feeling numbness in her face and her whole body is numb ,EMS reports pt had some seizure like shaking and tremors and her speech was shaky, symptoms have resolved. Coronavirus screen: At this time, the client does not indicate any symptoms associated with coronavirus-19. Ebola Screen: No symptoms or risks identified at this time. Initial Sepsis Screen: Does the patient meet any 2 criteria? No. Patient's initial sepsis screen is negative. Does the patient have a suspected source of infection? No. Patient's initial sepsis screen is negative. Risk Assessment: Do you want to hurt yourself or someone else? Patient reports no desire to harm self or others. Onset of symptoms was November 15, 2024. 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 iw Historical: - Allergies: 19:45 Bees; iw 19:45 Keppra; iw 19:45 mosquitos; iw - Home Meds: 19:45 lacosamide 200 mg Oral tablet 1 tab 2 times per day [Active]; olanzapine 5 mg Oral iw tablet 1 tab every day at bedtime [Active]; oxcarbazepine 600 mg Oral tablet 2 times per day [Active]; topiramate 100 mg Oral tablet 1 tab 2 times per day [Active]; venlafaxine 37.5 mg Oral tablet 1 tab [Active]; - PMHx: 19:45 Bipolar disorder; BORDERLINE PERSONALITY DISORDER; Asthma; Ovarian cyst; Seizure; iw Anxiety; adhd; - PSHx: 19:45 Cholecystectomy; ear surgery; iw - Immunization history:: Adult Immunizations up to date. - Infectious Disease History:: Denies. - Social history:: Smoking status: Reported history of juuling and/or vaping. Screenin:46 [facility] ED Fall Risk Assessment (Adult) History of falling in the last 3 months, cp4 including since admission No falls in past 3 months (0 pts) Confusion or Disorientation No (0 pts) Intoxicated or Sedated No (0 pts) Impaired Gait No (0 pts) Mobility Assist Device Used No (0 pt) Altered Elimination No (0 pt) Score/Fall Risk Level 0 - 2 = Low Risk Oriented to surroundings, Maintained a safe environment, Assessed \T\ reinforced patient's understanding of fall precautions, Hourly rounding (assess needs \T\ fall precautionary measures) done. Abuse screen: Denies threats or abuse. Denies injuries from another. Nutritional screening: No deficits noted. Tuberculosis screening: No symptoms or risk factors identified. Assessment: 21:46 General: Appears in no apparent distress. comfortable, Behavior is calm, cooperative, cp4 appropriate for age. Pain: Denies pain. Neuro: Level of Consciousness is awake, alert, obeys commands, Oriented to person, place, time, situation. Cardiovascular: Patient's skin is warm and dry. Respiratory: Airway is patent Respiratory effort is even, unlabored. GI: No signs and/or symptoms were reported involving the gastrointestinal system. : No signs and/or symptoms were reported regarding the genitourinary system. EENT: No signs and/or symptoms were reported regarding the EENT system. Derm: No signs and/or symptoms reported regarding the dermatologic system. Musculoskeletal: No signs and/or symptoms reported regarding the musculoskeletal system. 11/16 00:07 Reassessment: No changes from previously documented assessment. Patient states feeling iw better. Patient states symptoms have improved. Vital Signs: 11/15 19:43 BP 107 / 79; Pulse 91; Resp 16; Temp 98.7; Pulse Ox 100% on R/A; Weight 68.04 kg; iw Height 5 ft. 3 in. ; 11/16 00:07 BP 110 / 80; Pulse 94; Resp 18; Pulse Ox 99% ; iw 11/15 19:43 Body Mass Index 26.57 (68.04 kg, 160.02 cm) iw ED Course: 11/15 19:40 Patient arrived in ED. im 19:45 Triage completed. iw 19:46 Arm band placed on. iw 20:04 Aston López DO is Attending Physician. ms3 21:15 Inserted saline lock: 22 gauge in right forearm, using aseptic technique. br2 21:36 CMP Sent. br2 21:36 CBC with Diff Sent. br2 21:45 Jessica Jose is Primary Nurse. cp4 21:46 Bed in low position. Call light in reach. Side rails up X2. cp4 21:46 No provider procedures requiring assistance completed. cp4 23:55 Leon Willingham MD is Referral Physician. ms3 11/16 00:06 IV discontinued, intact, bleeding controlled, No redness/swelling at site. Pressure iw dressing applied. Administered Medications: 11/15 21:36 Drug: Topamax PO 100 mg PO once Route: PO; br2 22:15 Follow up: Response: No adverse reaction iw 21:36 Drug: lacosamide Extended Release 24 hour Capsule 200 mg PO once Route: PO; br2 22:15 Follow up: Response: No adverse reaction iw 11/16 00:04 Drug: Ondansetron IVP 4 mg IVP once; over 2 minutes Route: IVP; Site: right antecubital;iw 00:06 Follow up: Response: No adverse reaction iw 00:05 Not Given (wrong doses): ondansetron 2 mg IVP once; over 2 minutes iw 00:05 Drug: Ondansetron IVP 4 mg IVP once; over 2 minutes Route: IVP; Site: right forearm; iw 00:06 Follow up: Response: Medication administered at discharge. iw Medication: 11/15 21:46 VIS not applicable for this client. cp4 Outcome: 23:55 Discharge ordered by . ms3 11/16 00:08 Patient left the ED. iw Signatures: Staci Damico, RN RN iw Aston López DO DO ms3 Sindi Samuels Jessica Jose cp4 Elvia St RN RN br2 Corrections: (The following items were deleted from the chart) 00:05 00:04 Ondansetron IVP 2 mg IVP in right forearm iw iw
[2024-11-16 00:24] VITALS: TEMP 98.7
[2024-11-16 00:26] VITALS: BP 110/80; O2SAT 99
== END 2024-11-16 00:08 | disposition home or self-care (01) ==
LOC: ER 19:27
DX: G40.89 Other seizures (principal)
CPT/HCPCS: 85025; 99284; J2405

== ENCOUNTER 2024-11-24 05:10 | Emergency (ER) | payer SELFPAY ==
--- NOTE | 2024-11-24 05:19 | EDPHYS ---
Physician Documentation [facility] Name: Vanda Pompa Age: 24 yrs Sex: Female : 2000 Arrival Date: 11/24/2024 Time: 05:10 Bed 5 Private MD: ED Physician Mejia Green HPI: 11/24 05:18 This 24 yrs old Female presents to ER via EMS with complaints of sp4 Nausea/Vomiting. 11/25 03:52 Patient presents with EMS complaining of nausea vomiting.. 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 bm8 Historical: - Allergies: 05:12 Bees; bm8 05:12 Keppra; bm8 05:12 mosquitos; bm8 - Home Meds: 05:12 lacosamide 200 mg Oral tablet 1 tab 2 times per day [Active]; olanzapine 5 mg Oral bm8 tablet 1 tab every day at bedtime [Active]; oxcarbazepine 600 mg Oral tablet 2 times per day [Active]; topiramate 100 mg Oral tablet 1 tab 2 times per day [Active]; venlafaxine 37.5 mg Oral tablet 1 tab [Active]; - PMHx: 05:12 adhd; Anxiety; Asthma; Bipolar disorder; BORDERLINE PERSONALITY DISORDER; Ovarian cyst; bm8 Seizure; - PSHx: 05:12 Cholecystectomy; ear surgery; bm8 - Immunization history:: Adult Immunizations unknown. - Infectious Disease History:: Denies. - Social history:: Smoking status: Reported history of juuling and/or vaping. unknown. - Family history:: not pertinent. ROS: 11/25 03:52 Constitutional: Negative for fever, chills, and weight loss, positive nausea no sp4 vomiting All other systems are negative, Exam: 03:52 Constitutional: This is a well developed, well nourished patient who is awake, alert, sp4 and in no acute distress. Head/Face: Normocephalic, atraumatic. Eyes: Pupils equal round and reactive to light, extra-ocular motions intact. Lids and lashes normal. Conjunctiva and sclera are not injected. Cornea within normal limits. Periorbital areas with no swelling, redness, or edema. ENT: Nares patent. No nasal discharge, no septal abnormalities noted. Tympanic membranes are normal and external auditory canals are clear. Oropharynx with no redness, swelling, or masses, exudates, or evidence of obstruction, uvula midline. Mucous membranes moist. Neck: Trachea midline, no thyromegaly or masses palpated, and no cervical lymphadenopathy. Supple, full range of motion without nuchal rigidity, or vertebral point tenderness. Chest/axilla: Normal chest wall appearance and motion. Nontender with no deformity. No lesions are appreciated. Cardiovascular: Regular rate and rhythm with a normal S1 and S2. No gallops, murmurs, or rubs. Normal PMI, no JVD. No pulse deficits. Respiratory: Lungs have equal breath sounds bilaterally, clear to auscultation and percussion. No rales, rhonchi or wheezes noted. No increased work of breathing, no retractions or nasal flaring. Abdomen/GI: Soft, with normal bowel sounds. No distension or tympany. No guarding or rebound. No evidence of tenderness throughout. Back: No spinal tenderness. No costovertebral tenderness. Skin: Warm, dry with normal turgor. Normal color with no rashes, no lesions, and no evidence of cellulitis. MS/ Extremity: Pulses equal, no cyanosis. Neurovascular intact. Full, normal range of motion. Neuro: Awake and alert, GCS 15, oriented to person, place, time, and situation. Cranial nerves II-XII grossly intact. Motor strength 5/5 in all extremities. Sensory grossly intact. Psych: Awake, alert, with orientation to person, place and time. Behavior, mood, and affect are within normal limits Vital Signs: 11/24 05:11 BP 113 / 92; Pulse 105; Resp 17; Temp 99.2; Pulse Ox 98% ; Weight 68.04 kg; Height 5 bm8 ft. 3 in. ; Pain 0/10; 05:11 Body Mass Index 26.57 (68.04 kg, 160.02 cm) bm8 05:11 Pain Scale: Adult bm8 Sher Coma Score: 05:16 Eye Response: spontaneous(4). Motor Response: obeys commands(6). Verbal Response: bm8 oriented(5). Total: 15. 11/25 03:52 Eye Response: spontaneous(4). Motor Response: obeys commands(6). Verbal Response: sp4 oriented(5). Total: 15. MDM: 05/25 05:19 Medical Screening Exam initiated sp4 11/25 03:52 Differential diagnosis: Nonspecific abd pain, gastritis, viral gastroenteritis, sp4 gastroenteritis. Data reviewed: vital signs, nurses notes. ED course: Vomiting subsided prior to arrival. Patient stable for discharge home. No prescription necessary. Administered Medications: No medications were administered Disposition: 03:52 Chart complete. sp4 Disposition Summary: 11/24/24 05:19 Discharge Ordered Notes: Location: Home sp4 Problem: new sp4 Symptoms: have improved sp4 Condition: Stable sp4 Diagnosis - Nausea sp4 - Encounter for general adult medical examination sp4 Followup: sp4 - With: Private Physician - When: 7 - 10 days - Reason: Recheck today's complaints Discharge Instructions: - Discharge Summary Sheet sp4 - Nausea, Adult sp4 Forms: - Patient Portal Instructions sp4 Signatures: Mejia Green MD MD sp4 Timo Haider RN RN bm8 Corrections: (The following items were deleted from the chart) 11/24 05:14 05:12 Social history: Smoking status: unknown bm8 bm8
--- NOTE | 2024-11-24 05:19 | ER ---
Nurse's Notes [facility] Name: Vanda Pompa Age: 24 yrs Sex: Female : 2000 Arrival Date: 11/24/2024 Time: 05:10 Bed 5 Private MD: Diagnosis: Nausea;Encounter for general adult medical examination Presentation: 11/24 05:11 Chief complaint: Patient states: I have been having nausea and vomitting for weeks and bm8 have been unable to take my seizure medications. Coronavirus screen: At this time, the client does not indicate any symptoms associated with coronavirus-19. Ebola Screen: Patient negative for fever greater than or equal to 101.5 degrees Fahrenheit, and additional compatible Ebola Virus Disease symptoms Patient denies exposure to infectious person. Patient denies travel to an Ebola-affected area in the 21 days before illness onset. No symptoms or risks identified at this time. Initial Sepsis Screen: Does the patient meet any 2 criteria? No. Patient's initial sepsis screen is negative. Does the patient have a suspected source of infection? No. Patient's initial sepsis screen is negative. Risk Assessment: Do you want to hurt yourself or someone else? Patient reports no desire to harm self or others. Onset of symptoms is unknown. 05:11 Method Of Arrival: EMS: [facility] bm8 05:11 Acuity: FREDY 4 bm8 Triage Assessment: 05:12 General: Appears in no apparent distress. comfortable, Behavior is calm, cooperative, bm8 appropriate for age. Pain: Denies pain. EENT: No deficits noted. No signs and/or symptoms were reported regarding the EENT system. Neuro: No deficits noted. 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 Full function Gait is steady, Speech is normal, Facial symmetry appears normal, Pupils are PERRLA, Pupil Size: 3 mm Intact. Cardiovascular: Heart tones S1 S2 present Capillary refill < 3 seconds in bilateral fingers Patient's skin is warm and dry. Respiratory: Airway is patent Respiratory effort is even, unlabored, Respiratory pattern is regular, symmetrical, Breath sounds are clear bilaterally. GI: No deficits noted. Abdomen is flat, non-distended, Bowel sounds present X 4 quads. Abd is soft and non tender Reports nausea, vomiting. : No signs and/or symptoms were reported regarding the genitourinary system. Derm: No signs and/or symptoms reported regarding the dermatologic system. Musculoskeletal: No signs and/or symptoms reported regarding the musculoskeletal system. 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 bm8 Historical: - Allergies: 05:12 Bees; bm8 05:12 Keppra; bm8 05:12 mosquitos; bm8 - Home Meds: 05:12 lacosamide 200 mg Oral tablet 1 tab 2 times per day [Active]; olanzapine 5 mg Oral bm8 tablet 1 tab every day at bedtime [Active]; oxcarbazepine 600 mg Oral tablet 2 times per day [Active]; topiramate 100 mg Oral tablet 1 tab 2 times per day [Active]; venlafaxine 37.5 mg Oral tablet 1 tab [Active]; - PMHx: 05:12 adhd; Anxiety; Asthma; Bipolar disorder; BORDERLINE PERSONALITY DISORDER; Ovarian cyst; bm8 Seizure; - PSHx: 05:12 Cholecystectomy; ear surgery; bm8 - Immunization history:: Adult Immunizations unknown. - Infectious Disease History:: Denies. - Social history:: Smoking status: Reported history of juuling and/or vaping. unknown. - Family history:: not pertinent. Screenin:16 [facility] ED Fall Risk Assessment (Adult) History of falling in the last 3 months, bm8 including since admission No falls in past 3 months (0 pts) Confusion or Disorientation No (0 pts) Intoxicated or Sedated No (0 pts) Impaired Gait No (0 pts) Mobility Assist Device Used No (0 pt) Altered Elimination No (0 pt) Score/Fall Risk Level 0 - 2 = Low Risk Oriented to surroundings, Maintained a safe environment, Educated pt \T\ family on fall prevention, incl call for assistance when getting out of bed, Assessed \T\ reinforced patient's understanding of fall precautions, Hourly rounding (assess needs \T\ fall precautionary measures) done, Used ambulatory aids as needed (educated on \T\ assisted with), Used gait belt as appropriate. Abuse screen: Denies threats or abuse. Nutritional screening: No deficits noted. Tuberculosis screening: No symptoms or risk factors identified. Assessment: 05:16 Reassessment: see triage assessment. bm8 Vital Signs: 05:11 BP 113 / 92; Pulse 105; Resp 17; Temp 99.2; Pulse Ox 98% ; Weight 68.04 kg; Height 5 bm8 ft. 3 in. ; Pain 0/10; 05:11 Body Mass Index 26.57 (68.04 kg, 160.02 cm) bm8 05:11 Pain Scale: Adult bm8 Sher Coma Score: 05:16 Eye Response: spontaneous(4). Motor Response: obeys commands(6). Verbal Response: bm8 oriented(5). Total: 15. 11/25 03:52 Eye Response: spontaneous(4). Motor Response: obeys commands(6). Verbal Response: sp4 oriented(5). Total: 15. ED Course: 11/24 05:11 Patient arrived in ED. [id number] 05:11 Timo Haider, RN is Primary Nurse. bm8 05:12 Triage completed. bm8 05:12 Arm band placed on right wrist. bm8 05:16 Patient has correct armband on for positive identification. Bed in low position. Side bm8 rails up X 1. Client placed on continuous cardiac and pulse oximetry monitoring. NIBP monitoring applied. Pulse ox on. NIBP on. Door closed. Noise minimized. 05:16 No provider procedures requiring assistance completed. Patient did not have IV access bm8 during this emergency room visit. 05:18 Mejia Green MD is Attending Physician. sp4 05:27 Provided Education on: post re care, follow up with PCP. bm8 Administered Medications: No medications were administered Medication: 05:16 VIS not applicable for this client. bm8 Outcome: 05:19 Discharge ordered by . sp4 05:26 Discharged to home ambulatory, bm8 05:26 Condition: stable 05:26 Discharge instructions given to patient, Instructed on discharge instructions, follow up and referral plans. Demonstrated understanding of instructions, follow-up care, Prescriptions given X 1, 05:27 Patient left the ED. bm8 Signatures: Juliana Ruchi [email or web address] Mejia Green MD MD sp4 Timo Haider, RN RN bm8 Corrections: (The following items were deleted from the chart) 05:14 05:12 Social history: Smoking status: unknown bm8 bm8
[2024-11-24 05:31] VITALS: BP 113/92; TEMP 99.2; O2SAT 98
== END 2024-11-24 05:27 | disposition home or self-care (01) ==
LOC: ER 05:10
DX: R11.0 Nausea (principal)
CPT/HCPCS: 99283

== ENCOUNTER 2025-02-21 16:50 | Emergency (ER) | payer SELFPAY ==
--- NOTE | 2025-02-21 17:16 | EDPHYS ---
Physician Documentation [facility] Name: Vanda Pompa Age: 24 yrs Sex: Female : 2000 Arrival Date: 02/21/2025 Time: 16:50 Bed 19 Private MD: ED Physician Mee Paredes HPI: 02/21 17:16 This 24 yrs old Female presents to ER via Ambulatory with complaints of dr5 Possible Kidney Stone, Urinary Problem. 17:16 Onset: The symptoms/episode began/occurred acutely. Patient is a 24-year-old female dr5 with history of ADHD, anxiety, personality disorder, depression, ovarian cyst coming in for pain to her left flank that been going on for 1 day. Patient went to [facility] and had CT abdomen pelvis without contrast as well as urinalysis and urine test completed on 02/21/25 at 1552. . 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 - Infectious Disease History:: Denies. - Social history:: Smoking status: Reported history of juuling and/or vaping. ROS: 17:16 Constitutional: as per hpi dr5 Exam: 17:16 Constitutional: This is a well developed, well nourished patient who is awake, alert, dr5 and in no acute distress. Head/Face: Normocephalic, atraumatic. Eyes: Pupils equal round and reactive to light, extra-ocular motions intact. Lids and lashes normal. Conjunctiva and sclera are non-icteric and not injected. Cornea within normal limits. Periorbital areas with no swelling, redness, or edema. Neck: Trachea midline, no thyromegaly or masses palpated, and no cervical lymphadenopathy. Supple, full range of motion without nuchal rigidity, or vertebral point tenderness. No Meningismus. Chest/axilla: Normal chest wall appearance and motion. Nontender with no deformity. No lesions are appreciated. Cardiovascular: Regular rate and rhythm with a normal S1 and S2. Normal PMI, no JVD. No pulse deficits. Respiratory: Lungs have equal breath sounds bilaterally, clear to auscultation. No rales, rhonchi or wheezes noted. No increased work of breathing, no retractions or nasal flaring. Abdomen/GI: Soft, non-tender, non-distended Back: No spinal tenderness. No costovertebral tenderness. Full range of motion. Skin: Warm, dry with normal turgor. Normal color with no rashes, no lesions, and no evidence of cellulitis. MS/ Extremity: Pulses equal, no cyanosis. Neurovascular intact. Full, normal range of motion. Neuro: Awake and alert, GCS 15, oriented to person, place, time, and situation. Cranial nerves II-XII grossly intact. Motor strength 5/5 in all extremities. Sensory grossly intact. Cerebellar exam normal. Normal gait. Vital Signs: 16:58 BP 116 / 81; Pulse 94; Resp 17; Temp 98.4; Pulse Ox 99% ; Weight 72.57 kg; Height 5 ft. me1 3 in. ; Pain 7/10; 16:58 Body Mass Index 28.34 (72.57 kg, 160.02 cm) me1 16:58 Pain Scale: Adult me1 MDM: 16:54 Medical Screening Exam initiated dr5 17:16 Differential diagnosis: viral Infection, bacterial infection, UTI, Nephrolithiasis. dr5 Data reviewed: vital signs, nurses notes, diagnostic data from outside facility, urinalysis, bacteruria, UPT - Negative, CT Abdomen/Pelvis wo contrast. Consideration of Admission/Observation Escalation of care including admission/observation considered. Escalation considered patient found to have obstructing kidney stone. I considered the following discharge prescriptions or medication management in the emergency department I discussed and recommended Over The Counter medications. External Records Reviewed: Reviewed Sabiha's CT scan and urinalysis. Will add record to chart.. 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 Care significantly affected by the following Social Determinants of Health: Poor access to healthcare and/or lack of insurance, Poor access to transportation, Problems related to employment. Counseling: I had a detailed discussion with the patient and/or guardian regarding the historical points, exam findings, and any diagnostic results supporting the discharge/admit diagnosis, the presence of at least one elevated blood pressure reading (>120/80) during this emergency department visit, the need for outpatient follow up, for definitive care, a family practitioner, a urologist, to return to the emergency department if symptoms worsen or persist or if there are any questions or concerns that arise at home. Special discussion: I discussed with the patient/guardian in detail that at this point there is no indication for admission to the hospital. It is understood, however, that if the symptoms persist or worsen the patient needs to return immediately for re-evaluation. Based on the history and exam findings, there is no indication for further emergent testing or inpatient evaluation. I discussed with the patient/guardian the need to see the urologist for further evaluation of the symptoms. ED course: Patient was seen today and prescribed cefdinir for urinary tract infection as well as given methocarbamol. I will give patient strainer to catch kidney stone and prescribed Toradol to help with pain control. Patient reports she has nausea -will give Zofran. Recommend patient follow-up with urologist for further management. All questions answered. Strict ER precautions given. Administered Medications: No medications were administered Disposition Summary: 02/21/25 17:15 Discharge Ordered Notes: Location: Home dr5 Condition: Stable dr5 Diagnosis - Kidney Stone/ Calculus in urethra - Kidney Stone in Ureter dr5 Followup: dr5 - With: Emergency Department - When: As needed - Reason: Worsening of condition Followup: dr5 - With: Private Physician - When: 1 - 2 days - Reason: Recheck today's complaints, Continuance of care, Re-evaluation by your physician Discharge Instructions: - Discharge Summary Sheet dr5 - Kidney Stones dr5 - Dietary Guidelines to Help Prevent Kidney Stones dr5 Forms: - Work release form ll1 - Medication Reconciliation Form dr5 - Patient Portal Instructions dr5 - Leadership Thank You Letter dr5 Prescriptions: - ketorolac 10 mg Oral tablet - take 1 tablet ORAL route every 6 hours as needed for pain; maximum total dr5 duration of 5 days from all oral, intranasal, or parenteral formulations; 20 tablet; Refills: 0, Product Selection Permitted - Zofran 4 mg Oral Tablet - take 1 tablet ORAL route every 12 hours As needed; 20 tablet; Refills: 0, dr5 Product Selection Permitted Signatures: Dispatcher [facility] Jenny Perez RN RN me1 Granados, Chris, STAPLER HAND-C STAPLER HAND-Cdr5 Corrections: (The following items were deleted from the chart) 17:01 17:00 PMHx: Bipolar disorder; me1 me1
--- NOTE | 2025-02-21 17:16 | ER ---
Nurse's Notes [facility] Name: Vanda Pompa Age: 24 yrs Sex: Female : 2000 Arrival Date: 02/21/2025 Time: 16:50 Bed 19 Private MD: Diagnosis: Kidney Stone/ Calculus in urethra-Kidney Stone in Ureter Presentation: 02/21 16:58 Chief complaint: Patient states: bilateral flank pain for a while. Dx with UTI and me1 kidney stones today at [facility] ER. On the way home patient vomited and reports pain is worsening. 01/09 "sharp". Coronavirus screen: Vaccine status: Patient reports receiving the 2nd dose of the covid vaccine. Ebola Screen: No symptoms or risks identified at this time. Initial Sepsis Screen: Does the patient meet any 2 criteria? HR > 90 bpm. Does the patient have a suspected source of infection? No. Patient's initial sepsis screen is negative. Risk Assessment: Do you want to hurt yourself or someone else? Patient reports no desire to harm self or others. Onset of symptoms is unknown. 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 - Infectious Disease History:: Denies. - Social history:: Smoking status: Reported history of juuling and/or vaping. Screenin:11 [facility] ED Fall Risk Assessment (Adult) History of falling in the last 3 months, ll1 including since admission No falls in past 3 months (0 pts) Confusion or Disorientation No (0 pts) Intoxicated or Sedated No (0 pts) Impaired Gait No (0 pts) Mobility Assist Device Used No (0 pt) Altered Elimination No (0 pt) Score/Fall Risk Level 0 - 2 = Low Risk Maintained a safe environment, Hourly rounding (assess needs \\T\\ fall precautionary measures) done. Abuse screen: Denies threats or abuse. Nutritional screening: No deficits noted. Tuberculosis screening: No symptoms or risk factors identified. Assessment: 17:10 Reassessment: No changes from previously documented assessment. Patient and/or family ll1 updated on plan of care and expected duration. Pain level reassessed. 17:10 General: Appears in no apparent distress. Behavior is calm, cooperative, appropriate ll1 for age. Pain: Complains of pain in B flanks Quality of pain is described as aching. GI: Reports nausea. GI: Bowel sounds present X 4 quads. Abd is soft and non tender X 4 quads. : Reports burning with urination. 17:24 Reassessment: No changes from previously documented assessment. Patient and/or family ll1 updated on plan of care and expected duration. Pain level reassessed. Patient is alert, oriented x 3, equal unlabored respirations, skin warm/dry/pink. Vital Signs: 16:58 BP 116 / 81; Pulse 94; Resp 17; Temp 98.4; Pulse Ox 99% ; Weight 72.57 kg; Height 5 ft. me1 3 in. ; Pain 7/10; 16:58 Body Mass Index 28.34 (72.57 kg, 160.02 cm) me1 16:58 Pain Scale: Adult ks1 ED Course: 16:53 Patient arrived in ED. mr 16:54 GranadosChris, ROLLED OATS MILL OPERATOR-C [facility] 16:54 Mee Paredes MD is Attending Physician. dr5 17:00 Triage completed. me1 17:00 Arm band placed on Patient placed in an exam room. me1 17:11 Patient has correct armband on for positive identification. Provided Education on: ER ll1 procedures and process. 17:18 George Wesley, OLGA is Primary Nurse. ll1 17:24 No provider procedures requiring assistance completed. Patient did not have IV access ll1 during this emergency room visit. Administered Medications: No medications were administered Medication: 17:11 VIS not applicable for this client. ll1 Outcome: 17:15 Discharge ordered by . dr5 17:24 Discharged to home ambulatory, ll1 17:24 Condition: stable 17:24 Discharge instructions given to patient, Instructed on discharge instructions, follow up and referral plans. medication usage, Demonstrated understanding of instructions, follow-up care, medications, Prescriptions given X 1, 17:25 Patient left the ED. ll1 Signatures: Purnima Epstein, Esvin Mcallister mr George Wesley RN RN 1 Jenny Potter RN RN me1 Chris Granados, ROLLED OATS MILL OPERATOR-C ROLLED OATS MILL OPERATOR-Cdr5 Corrections: (The following items were deleted from the chart) 17:01 17:00 PMHx: Bipolar disorder; me1 ks1
[2025-02-21 18:16] VITALS: BP 116/81; TEMP 98.4; O2SAT 99
== END 2025-02-21 17:25 | disposition home or self-care (01) ==
LOC: ER 16:50
DX: N20.0 Calculus of kidney (principal); N21.1 Calculus in urethra
CPT/HCPCS: 99283

== ENCOUNTER 2025-04-09 14:33 | Emergency (ER) | payer SELFPAY ==
--- NOTE | 2025-04-09 15:12 | RAD REPORT ---
EXAM: Chest Single View HISTORY: 24 years Female CHEST PAIN COMPARISON: No prior exams FINDINGS: LUNGS/PLEURA: The lungs are clear. No pleural effusions or pneumothorax. No pulmonary edema. Azygous fissure, a normal variant. CARDIAC/MEDIASTINUM: The cardiac silhouette is within normal limits. UPPER ABDOMEN: No significant abnormality. BONES: No acute abnormality. LINES/TUBES/OTHER: N/A IMPRESSION: No evidence of acute cardiopulmonary disease.
[2025-04-09] MEDS ORDERED: LORAZEPAM 1 MG TABLET ONE (15:16)
[2025-04-09 16:06] LABS: Absolute Lymphocytes (CBC) 2.2 K/uL (0.7-4.9); Hematocrit 41.6 % (36.0-45.0); Hemoglobin 14.1 g/dL (12.0-15.0); MCH 28.5 pg (27.0-35.0); MCHC 33.9 g/dL (32.0-36.0); MCV 84.0 fL (80-100); MPV 8.2 fL (7.6-11.3); Nucleated RBC Absolute Count 0.0 (0-0); Nucleated Red Blood Cells % 0.3 % (0-0); RBC Red Blood Cell Count 4.95 M/uL (3.86-4.86); White Blood Count 9.70 thou/uL (4.3-10.9)
[2025-04-09 16:13] LABS: METHAMPHETAM NEGATIVE (NEGATIVE); THC Cannibis NEGATIVE (NEGATIVE)
[2025-04-09 16:24] LABS: ALT/SGPT 59 U/L (13-56); AST/SGOT 19 U/L (15-37); Albumin 3.4 g/dL (3.4-5.0); Albumin/Globulin Ratio 0.9 (1.1-1.8); Alkaline Phosphatase 152 U/L (45-117); Anion Gap 10.7 mEq/L (5.0-15.0); BUN Blood Urea Nitrogen 9 mg/dL (7-18); Globulin 3.7 g/dL (2.3-3.5); Glucose Level 119 mg/dL (74-106); Magnesium 2.0 mg/dL (1.6-2.4); Potassium 3.7 mEq/L (3.5-5.1)
[2025-04-09 16:25] LABS: Bilirubin Indirect, Calculated 0.0 mg/dL (0.2-0.8); Troponin High Sensitivity < 3.0 pg/mL (<58.9)
[2025-04-09 16:37] LABS: Sqamous Epithelial <5 /HPF (None Seen); Urine Culture Reflex Order NOT NEEDED; Urine Microscopic Reflex YN ORDER UMIC
[2025-04-09] MEDS ORDERED: NA CHLORIDE 0.9% 1,000 ML ONE (16:59)
--- NOTE | 2025-04-09 19:59 | RAD REPORT ---
EXAMINATION: CTA CHEST PE CLINICAL INDICATION: Female, 24 years old. chest pain;Palpitations TECHNIQUE: This examination was performed according to an angiographic protocol with 3D post-processi ng. This involves 3D reconstructions, MIPs, volume rendered images and/or shaded surface rendering. One or more of the following dose reduction techniques were used: Automated exposure control, adjustm ent of the mA and/or kV according to patient size, and/or iterative reconstruction. Unless otherwise specified, incidental findings do not require dedicated imaging follow-up. [id number]. COMPARISON: 04/08/2022 FINDINGS: LOWER NECK: Visualized thyroid gland and soft tissues are normal. MEDIASTINUM AND LYMPH NODES: No mediastinal mass or fluid collection. Normal size mediastinal, hilar, and axillary lymph nodes. Moderate distal esophageal thickening which could reflect esophagitis. THORACIC AORTA: No thoracic aortic aneurysm. PULMONARY ARTERIES: Caliber is within normal limits. No pulmonary emboli identified. HEART: Normal heart size. No coronary calcifications.No significant pericardial effusion. LUNGS AND AIRWAYS: Mild nonspecific groundglass opacities in the right upper lobe. Dependent atelecta sis. No suspicious and/or stable pulmonary nodules. Azygous fissure, normal variant. PLEURA: No pleural effusions. No pneumothorax. OSSEOUS STRUCTURES AND CHEST WALL: No fracture or suspicious osseous lesions. UPPER ABDOMEN: No acute abnormalities. IMPRESSION: Negative for pulmonary embolism. A few mild nonspecific right upper lobe groundglass opacities could reflect an early mild pneumonia or pneumonitis. Also noted is moderate thickening of the distal esophagus which is not well assessed on CT. This could reflect esophagitis and could be a source of c hest pain. Could consider endoscopy.
--- NOTE | 2025-04-09 20:30 | ER ---
Nurse's Notes [facility] Name: Vanda Pompa Age: 24 yrs Sex: Female : 2000 Arrival Date: 04/09/2025 Time: 14:33 Bed 13 Private MD: Diagnosis: Palpitations;Chest pain, unspecified Presentation: 04/09 14:36 Chief complaint: Patient states: palpitations and chest pain for 5 hours. Coronavirus dd2 screen: At this time, the client does not indicate any symptoms associated with coronavirus-19. Ebola Screen: No symptoms or risks identified at this time. Initial Sepsis Screen: Does the patient meet any 2 criteria? No. Patient's initial sepsis screen is negative. Does the patient have a suspected source of infection? No. Patient's initial sepsis screen is negative. Risk Assessment: Do you want to hurt yourself or someone else? Patient reports no desire to harm self or others. Onset of symptoms was April 09, 2025 at 09:00. 14:36 Method Of Arrival: EMS: [facility] dd2 14:36 Acuity: FREDY 3 dd2 Triage Assessment: 14:38 General: Appears in no apparent distress. comfortable, well nourished, Behavior is dd2 calm, cooperative, appropriate for age. Pain: Complains of pain in mid-sternal area Pain currently is 5 out of 10 on a pain scale. Cardiovascular: Reports chest pain, palpitations, Patient's skin is warm and dry. Chest pain is described as mild. CHILDCARE PROVIDER: 14:38 LMP 03/03/2025, unknown dd2 Historical: - Allergies: 14:38 Bees; dd2 14:38 Ibuprofen; dd2 14:38 Keppra; dd2 14:38 mosquitos; dd2 - PMHx: 14:38 adhd; Anxiety; BORDERLINE PERSONALITY DISORDER; depressive disorder; Kidney stones dd2 (Unknown); Ovarian cyst; Seizure; - PSHx: 14:38 Cholecystectomy; ear sx; dd2 - Immunization history:: Adult Immunizations up to date. - Infectious Disease History:: Denies. - Social history:: Smoking status: Reported history of juuling and/or vaping. Screenin:00 [facility] ED Fall Risk Assessment (Adult) History of falling in the last 3 months, jb4 including since admission No falls in past 3 months (0 pts) Confusion or Disorientation No (0 pts) Intoxicated or Sedated No (0 pts) Impaired Gait No (0 pts) Mobility Assist Device Used No (0 pt) Altered Elimination No (0 pt) Score/Fall Risk Level 0 - 2 = Low Risk Oriented to surroundings, Maintained a safe environment. Abuse screen: Denies threats or abuse. Nutritional screening: No deficits noted. Tuberculosis screening: No symptoms or risk factors identified. Assessment: 16:05 Reassessment: Patient appears in no apparent distress at this time. Patient is alert, bp oriented x 3, equal unlabored respirations, skin warm/dry/pink. 17:47 Reassessment: Patient appears in no apparent distress at this time. Patient is alert, bp oriented x 3, equal unlabored respirations, skin warm/dry/pink. 19:01 Reassessment: Patient appears in no apparent distress at this time. Patient and/or jb4 family updated on plan of care and expected duration. Pain level reassessed. Patient is alert, oriented x 3, equal unlabored respirations, skin warm/dry/pink. report received from OLGA Bach. 20:33 Reassessment: Patient appears in no apparent distress at this time. Patient and/or jb4 family updated on plan of care and expected duration. Pain level reassessed. Patient is alert, oriented x 3, equal unlabored respirations, skin warm/dry/pink. Vital Signs: 14:36 BP 110 / 77; Pulse 106; Resp 16; Temp 98.2; Pulse Ox 100% on R/A; Weight 72.57 kg; dd2 Height 5 ft. 3 in. ; Pain 5/10; 16:05 BP 96 / 65; Pulse 102; Resp 16; Pulse Ox 97% ; bp 17:46 BP 94 / 76; Pulse 81; Resp 23; Pulse Ox 100% ; bp 20:33 BP 106 / 77; Pulse 85; Resp 16; Pulse Ox 98% ; jb4 14:36 Body Mass Index 28.34 (72.57 kg, 160.02 cm) dd2 14:36 Pain Scale: Adult dd2 ED Course: 14:35 Patient arrived in ED. dd2 14:37 Dick Nathan PA-C is PHCP. cp 14:37 Aston López DO is Attending Physician. cp 14:38 Triage completed. dd2 14:38 Arm band placed on right wrist. dd2 14:58 Isreal Blakely, RN is Primary Nurse. bp 15:00 XRAY Chest (1 view) In Process Unspecified. EDMS 15:14 EKG done, by ED staff, reviewed by Dick Nathan PA-C. rk3 15:55 Initial lab(s) drawn, by nh, sent to lab. Urine collected: clean catch specimen, clear. bp Inserted saline lock: 22 gauge in right hand, using aseptic technique. Blood collected. Flushed with 10 mL NS. 19:00 Patient has correct armband on for positive identification. Bed in low position. Call jb4 light in reach. Side rails up X 1. Provided Education on: plan of care. 19:00 No provider procedures requiring assistance completed. jb4 19:46 CT Chest For PE Angio In Process Unspecified. EDMS 20:29 Maximo Hunter MD is Referral Physician. cp 20:50 IV discontinued, intact, bleeding controlled, No redness/swelling at site. Pressure jb4 dressing applied. Administered Medications: 15:05 Drug: LORazepam PO 1 mg PO once Route: PO; bp 16:45 Drug: NS 0.9% IV 1000 ml IV at 1000 ml once; to be given as a bolus over 60 minutes bp Route: IV; Rate: 1000 ml; Site: right hand; 20:45 Drug: Pantoprazole PO 40 mg PO once Route: PO; jb4 20:51 Follow up: Response: Medication administered at discharge. jb4 20:45 Drug: AZITHromycin PO 500 mg PO once Route: PO; jb4 20:51 Follow up: Response: Medication administered at discharge. jb4 Medication: 20:49 VIS not applicable for this client. jb4 Outcome: 20:29 Discharge ordered by . cp 20:50 Discharged to home ambulatory, jb4 20:50 Condition: stable 20:50 Discharge instructions given to patient, Instructed on discharge instructions, follow up and referral plans. medication usage, Demonstrated understanding of instructions, follow-up care, medications, Prescriptions given X 2, 20:50 Patient left the ED. jb4 Signatures: Dispatcher [employer] EDMO Dick Nathan PA-C PA-C cp Bryson, James, RN RN jb4 Isreal Blakely RN RN bp JOSE NANCE RN RN dd2 Ellis Das rk3
--- NOTE | 2025-04-09 20:30 | EDPHYS ---
Physician Documentation [facility] Name: Vanda Pompa Age: 24 yrs Sex: Female : 2000 Arrival Date: 04/09/2025 Time: 14:33 Bed 13 Private MD: ED Physician Aston López HPI: 04/09 14:45 This 24 yrs old Female presents to ER via EMS with complaints of Palpitations. cp 14:45 The patient presents with a history of heart racing. Context: The symptoms occur at cp rest. Onset: The symptoms/episode began/occurred 5 hour(s) ago. 14:45 Duration: The patient or guardian reports a single episode, that is still ongoing, and cp unchanged. Associated signs and symptoms: Pertinent positives: anxiety, chest pain, SOB, Pertinent negatives: cough, fever, syncope, near-syncope, vomiting. Severity of symptoms: in the emergency department the symptoms are unchanged despite EMS interventions. 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 - Infectious Disease History:: Denies. - Social history:: Smoking status: Reported history of juuling and/or vaping. ROS: 14:50 Constitutional: Negative for body aches, chills, fever, poor PO intake, cp 14:50 Cardiovascular: Positive for chest pain, palpitations, Negative for edema, cp 14:50 Respiratory: Negative for cough, wheezing, 14:50 Abdomen/GI: Negative for abdominal pain, vomiting, diarrhea, constipation, 14:50 Eyes: Negative for injury, pain, redness, and discharge, cp 14:50 ENT: Negative for drainage from ear(s), ear pain, sore throat, difficulty swallowing, cp difficulty handling secretions, 14:50 Back: Negative for pain at rest, pain with movement, 14:50 Neuro: Negative for altered mental status, headache, syncope, near syncope, 14:50 All other systems are negative, Exam: 14:55 Constitutional: The patient appears in no acute distress, alert, awake, cp non-diaphoretic, non-toxic, well developed, well nourished, 14:55 Head/Face: Normocephalic, atraumatic. cp 14:55 Eyes: Periorbital structures: appear normal, Pupils: equal, round, and reactive to cp light and accomodation, Conjunctiva: normal, no exudate, no injection, Sclera: no appreciated abnormality, Lids and lashes: appear normal, bilaterally, 14:55 ENT: External ear(s): are unremarkable, Nose: is normal, Mouth: Lips: moist, Oral mucosa: moist, Posterior pharynx: Airway: no evidence of obstruction, patent, 14:55 Neck: ROM/movement: is normal, is supple, without pain, no range of motions cp limitations, 14:55 Chest/axilla: Inspection: normal, Palpation: crepitus, is not appreciated, tenderness, is not appreciated, 14:55 Cardiovascular: Rate: tachycardic, Rhythm: regular, Edema: is not appreciated, JVD: is not appreciated, 14:55 Respiratory: the patient does not display signs of respiratory distress, Respirations: normal, no use of accessory muscles, no retractions, labored breathing, is not present, Breath sounds: are clear throughout, no decreased breath sounds, no stridor, no wheezing, 14:55 Abdomen/GI: Inspection: abdomen appears normal, Palpation: abdomen is soft and non-tender, in all quadrants, 14:55 Back: pain, is absent, ROM is normal, 14:55 Neuro: Orientation: to person, place \T\ time. Mentation: is normal, Cerebellar function: is grossly normal, Motor: moves all fours, strength is normal, Sensation: is normal, 15:18 ECG was reviewed by the Attending Physician. cp Vital Signs: 14:36 BP 110 / 77; Pulse 106; Resp 16; Temp 98.2; Pulse Ox 100% on R/A; Weight 72.57 kg; dd2 Height 5 ft. 3 in. ; Pain 5/10; 16:05 BP 96 / 65; Pulse 102; Resp 16; Pulse Ox 97% ; bp 17:46 BP 94 / 76; Pulse 81; Resp 23; Pulse Ox 100% ; bp 20:33 BP 106 / 77; Pulse 85; Resp 16; Pulse Ox 98% ; jb4 14:36 Body Mass Index 28.34 (72.57 kg, 160.02 cm) dd2 14:36 Pain Scale: Adult dd2 MDM: 14:37 Medical Screening Exam initiated 17:00 Differential diagnosis: arrythmia, dehydration, stress disorder, pneumonia, anxiety, cp pulmonary embolism. 20:29 Data reviewed: vital signs, nurses notes, lab test result(s), EKG, radiologic studies, cp CT scan, plain films. 20:29 I considered the following discharge prescriptions or medication management in the emergency department Medications were administered in the Emergency Department. See MAR. 20:29 Independent interpretation of the following test(s) in the Emergency Department EKG: See my EKG interpretation above X-Ray: My interpretation is chest image negative for focal pneumonia. Care significantly affected by the following chronic conditions: anxiety, depression. Counseling: I had a detailed discussion with the patient and/or guardian regarding the historical points, exam findings, and any diagnostic results supporting the discharge/admit diagnosis, lab results, radiology results, the need for outpatient follow up, a emergency department, to return to the emergency department if symptoms worsen or persist or if there are any questions or concerns that arise at home. Response to treatment: the patient's symptoms have mildly improved after treatment, and as a result, I will discharge patient. 04/09 14:41 Order name: Basic Metabolic Panel; Complete Time: 16:26 04/09 16:27 Interpretation: Normal except: CL 113; CO2 20; GLUC 119. 04/09 14:41 Order name: CBC with Diff; Complete Time: 16:25 04/09 16:27 Interpretation: Normal except: RBC 4.95. 04/09 14:41 Order name: D-Dimer; Complete Time: 17:34 04/09 17:34 Interpretation: D-DIMER 0.596; Reviewed. 04/09 14:41 Order name: LFT's; Complete Time: 16:26 04/09 16:27 Interpretation: Normal except: ALT 59; ALK 152; IBILI, CALC 0.0; GLOB 3.7; A/G 0.9. 04/09 14:41 Order name: Magnesium; Complete Time: 16:26 04/09 14:41 Order name: Troponin HS; Complete Time: 16:26 cp 04/09 14:41 Order name: UA Rfx Pacheco Cult if indicated; Complete Time: 16:50 cp 04/09 16:51 Interpretation: Reviewed. 04/09 14:41 Order name: UDS; Complete Time: 16:25 cp 04/09 14:41 Order name: Test, Urine; Complete Time: 16:25 cp 04/09 16:27 Interpretation: Urine SG > 1.030; Reviewed. 04/09 14:41 Order name: XRAY Chest (1 view); Complete Time: 15:16 cp 04/09 15:16 Interpretation: Report review. 04/09 17:35 Order name: CT Chest For PE Angio; Complete Time: 20:25 04/09 20:26 Interpretation: Report reviewed. 04/09 14:41 Order name: Cardiac monitoring; Complete Time: 15:14 04/09 14:41 Order name: EKG - Nurse/Tech; Complete Time: 15:14 04/09 14:41 Order name: IV Saline Lock; Complete Time: 15:55 04/09 14:41 Order name: Labs collected and sent; Complete Time: 15:55 04/09 14:41 Order name: O2 Per Protocol; Complete Time: 15:55 04/09 14:41 Order name: O2 Sat Monitoring; Complete Time: 15:55 cp EC:18 Rate is 98 beats/min. Rhythm is regular. SD interval is normal. QRS interval is normal. cp QT interval is normal. T waves are Inverted in lead aVR. Interpreted by me. Reviewed by me. Administered Medications: 15:05 Drug: LORazepam PO 1 mg PO once Route: PO; bp 16:45 Drug: NS 0.9% IV 1000 ml IV at 1000 ml once; to be given as a bolus over 60 minutes bp Route: IV; Rate: 1000 ml; Site: right hand; 20:45 Drug: Pantoprazole PO 40 mg PO once Route: PO; jb4 20:51 Follow up: Response: Medication administered at discharge. jb4 20:45 Drug: AZITHromycin PO 500 mg PO once Route: PO; jb4 20:51 Follow up: Response: Medication administered at discharge. jb4 Disposition: 16:04 I was immediately available on-site in the Emergency Department for consultation in the [address] of the patient. Disposition Summary: 04/09/25 20:29 Discharge Ordered Notes: Location: Home cp Problem: new cp Symptoms: have improved cp Condition: Stable cp Diagnosis - Palpitations cp - Chest pain, unspecified cp Followup: cp - With: Maximo Hunter MD - When: 2 - 3 days - Reason: palpitations, chest pain Discharge Instructions: - Discharge Summary Sheet cp - Nonspecific Chest Pain, Adult cp - Food Choices for Gastroesophageal Reflux Disease, Adult cp - Esophagitis cp - Gastroesophageal Reflux Disease, Adult cp - Palpitations cp Forms: - Medication Reconciliation Form cp - Antibiotic Education cp - Prescription Opioid Use cp - Patient Portal Instructions cp - Leadership Thank You Letter cp Prescriptions: - Protonix 40 mg Oral Tablet - take 1 tablet ORAL route once daily; 30 tablet; Refills: 0, Product Selection cp Permitted - Zithromax Z-Jean 250 mg Oral Tablet - take 1 tablet ORAL route as directed for 5 days Day 1 - take two (2) tablets cp one time. Day 2, 3, 4 , 5 take one (1) tablet once daily.; 6 tablet; Refills: 0, Product Selection Permitted Signatures: Dispatcher [employer] EDMS Dick Nathan, MICHAEL PADominic cp Jose Vera RN RN jb4 Isreal Blakely RN RN Aston Hernandez DO DO ms3 JOSE NANCE, RN RN dd2 Corrections: (The following items were deleted from the chart) 14:42 14:41 Chest Single View+RAD.RAD.BRZ ordered. EDMS EDMS 17:36 17:36 Chest For PE Angio+CT.RAD.BRZ ordered. EDMS EDMS 20:32 20:31 Esophagitis, unspecified cp cp
[2025-04-09] MEDS ORDERED: PANTOPRAZOLE 40MG TABLET PO ONE (20:41)
[2025-04-09] MEDS ORDERED: AZITHROMYCIN 250 MG TAB ONE (20:41)
[2025-04-09 21:38] VITALS: TEMP 98.2
[2025-04-09 21:42] VITALS: BP 106/77; O2SAT 98
== END 2025-04-09 20:50 | disposition home or self-care (01) ==
LOC: ER 14:33
DX: R00.2 Palpitations (principal); R07.9 Chest pain, unspecified
CPT/HCPCS: 36415; 71045; 71275; 80048; 80076; 80307; 81001; 81025; 83735; 84484; 85025; 85379; 93005; 99285; J7030; Q9967

== ENCOUNTER 2025-04-18 23:24 | Emergency (ER) | payer SELFPAY ==
[2025-04-18] MEDS ORDERED: ONDANSETRON 4 MG/2 ML VIAL ONE (23:44)
[2025-04-18] MEDS ORDERED: NA CHLORIDE 0.9% 1,000 ML ONE (23:44)
[2025-04-19] LABS: Hematocrit 41.3 % (36.0-45.0); Hemoglobin 14.2 g/dL (12.0-15.0); RBC Red Blood Cell Count 4.90 M/uL (3.86-4.86); White Blood Count 15.90 thou/uL (4.3-10.9)
[2025-04-19 00:01] LABS: Absolute Lymphocytes (CBC) 5.6 K/uL (0.7-4.9); MCH 29.0 pg (27.0-35.0); MCHC 34.4 g/dL (32.0-36.0); MCV 84.3 fL (80-100); MPV 8.4 fL (7.6-11.3); Nucleated RBC Absolute Count 0.0 (0-0); Nucleated Red Blood Cells % 0.0 % (0-0)
[2025-04-19 00:28] LABS: ALT/SGPT 43 U/L (13-56); AST/SGOT 20 U/L (15-37); Albumin 3.8 g/dL (3.4-5.0); Albumin/Globulin Ratio 1.0 (1.1-1.8); Alkaline Phosphatase 142 U/L (45-117); Anion Gap 11.2 mEq/L (5.0-15.0); BUN Blood Urea Nitrogen 11 mg/dL (7-18); Globulin 3.7 g/dL (2.3-3.5); Glucose Level 135 mg/dL (74-106); Potassium 3.2 mEq/L (3.5-5.1)
[2025-04-19 00:32] LABS: Bilirubin Indirect, Calculated 0.0 mg/dL (0.2-0.8)
[2025-04-19 00:33] LABS: PT Prothrombin Time 13.5 SECONDS (10-13.0); PTT, Activated Partial Thromb 23.6 SECONDS (27.2-37.4); Protime INR 1.2
[2025-04-19 01:34] LABS: Influenza A Ag Negative; Influenza B Ag Negative; SARS-CoV-2 Antigen Rapid Res Negative (Negative)
[2025-04-19] MEDS ORDERED: CEFTRIAXONE 2000 MG/VIAL ONE (03:22)
[2025-04-19 04:17] LABS: Sqamous Epithelial <5 /HPF (None Seen); Urine Culture Reflex Order NOT NEEDED; Urine Microscopic Reflex YN ORDER UMIC; Urine WBC Clump Occasional /HPF (None Seen)
[2025-04-19 04:21] LABS: METHAMPHETAM NEGATIVE (NEGATIVE); THC Cannibis NEGATIVE (NEGATIVE)
--- NOTE | 2025-04-19 04:49 | EDPHYS ---
Physician Documentation [facility] Name: Vanda Pompa Age: 24 yrs Sex: Female : 2000 Arrival Date: 04/18/2025 Time: 23:24 Bed 8 Private MD: ED Physician Rohan Alonso HPI: 04/19 05:20 This 24 yrs old Female presents to ER via EMS with complaints of Vomiting. tt7 05:21 Patient reports general malaise for the past 3 days, also has had some nausea and 1 tt7 episode of nonbloody nonbilious vomiting today, no abdominal pain, was recently started on Depakote for mood stabilization, past medical history of anxiety, borderline personality disorder, depression. 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 - Infectious Disease History:: Denies. - Social history:: Smoking status: unknown Smoking status: Reported history of juuling and/or vaping. ROS: 05:18 Constitutional: negative for fever. Cardiovascular: negative for chest pain. tt7 Respiratory: negative for shortness of breath. MS/Extremity: negative for injury and deformity. Skin: negative for rash. Neuro: negative for focal weakness. 05:18 Abdomen/GI: Positive for nausea and vomiting, Exam: 05:18 Constitutional: vital signs reviewed, well appearing. Head/Face: normocephalic, tt7 atraumatic. Eyes: no conjunctival injection, anicteric sclerae. ENT: mucus membranes moist. Neck: trachea midline, no JVD, no meningismus. Chest/axilla: normal chest wall appearance and motion, nontender, no crepitus. Cardiovascular: regular rate and rhythm, no murmurs, no rubs, no lower extremity edema. Respiratory: normal respiratory effort, no accessory muscle use, lungs CTAB. Abdomen/GI: soft, nondistended, nontender, no guarding or rebound, negative Vickers's sign, no McBurney point tenderness. Skin: warm, dry, intact, normal turgor, normal color, no rash. MS/ Extremity: normal ROM of extremities, no gross deformities. Neuro: alert and oriented with appropriate mental status, normal speech, follows commands, no focal neurologic deficits. Psych: appropriate mood and affect. Vital Signs: 04/18 23:27 BP 113 / 78; Pulse 90; Resp 16; Temp 98.4; Pulse Ox 95% ; Weight 73.5 kg; vc1 04/19 01:00 BP 105 / 70; Pulse 82; Resp 19; Pulse Ox 97% ; vc1 02:00 BP 94 / 66; Pulse 90; Resp 19; Pulse Ox 92% ; vc1 03:34 BP 104 / 77; Pulse 73; Resp 17; Pulse Ox 99% on R/A; Pain 0/10; tb4 03:34 Pain Scale: Adult tb4 MDM: 04/18 23:42 Medical Screening Exam initiated tt7 04/19 02:26 Data reviewed: vital signs, nurses notes, lab test result(s), EKG. ED course: I tt7 independently interpreted the patient's EKG performed on 04/19/2025 at 0025. On my interpretation, EKG demonstrates normal sinus rhythm, ventricular rate 84 bpm, left posterior fascicular block, normal QRS interval, normal ST segments, no STEMI. 05:19 Differential diagnosis: gastritis, Valproic acid toxicity, alcohol intoxication, tt7 acetaminophen toxicity, pyelonephritis. 05:24 ED course: Patient well-appearing and vital signs are stable, physical exam reassuring, tt7 given patient's past history of borderline personality disorder broad workup was initiated to assess for potential overdose or ingestion, ordered serum ethanol, salicylate, and acetaminophen testing, given she was recently started on Depakote I have ordered a Depakote level as well to make sure her symptoms are not due to toxicity, patient was treated with Zofran and IV fluids, overall her workup reassuring, normal UDS and normal toxicologic workup, valproic acid level is subtherapeutic, do not suspect toxicity, patient has a leukocytosis of 17,000, urinalysis was obtained and appears significantly infected, the constellation of patient's presentation and results is consistent with pyelonephritis, the patient was treated with 2 g of IV ceftriaxone, was able to tolerate oral intake in the emergency department and felt improved on reassessment, she was discharged with return precautions and course of cefdinir and Zofran. 04/18 23:43 Order name: Acetaminophen; Complete Time: 00:54 tt7 04/18 23:43 Order name: Basic Metabolic Panel; Complete Time: 00:54 tt7 04/18 23:43 Order name: CBC with Diff; Complete Time: 00:54 tt04/18 23:43 Order name: ETOH Level; Complete Time: 00:54 tt7 04/18 23:43 Order name: Hepatic Function; Complete Time: 00:54 tt04/18 23:43 Order name: PT-INR; Complete Time: 00:54 tt04/18 23:43 Order name: Ptt, Activated; Complete Time: 00:54 tt04/18 23:43 Order name: Salicylate; Complete Time: 00:54 04/18 23:43 Order name: Urine Drug Screen; Complete Time: 04:23 04/19 00:54 Order name: Depakote; Complete Time: 02:14 04/19 00:55 Order name: UA Rfx Pacheco Cult if indicated; Complete Time: 04:46 04/19 00:55 Order name: COVID-19 Ag + Flu A+B Ag; Complete Time: 02:14 04/19 02:46 Order name: Blood Culture Adult (2) tt7 04/19 02:46 Order name: Lactate w/ 2H reflex if indic.; Complete Time: 04:23 04/18 23:43 Order name: EKG - Nurse/Tech; Complete Time: 01:11 04/18 23:43 Order name: IV Saline Lock; Complete Time: 23:54 04/18 23:43 Order name: Labs collected and sent; Complete Time: 23:54 04/18 23:43 Order name: Suicide Screening ([place]); Complete Time: 00:06 tt7 Administered Medications: 04/18 23:53 Drug: Ondansetron IVP 4 mg IVP once; over 2 minutes Route: IVP; Site: right wrist; tb4 04/19 03:34 Follow up: Response: No adverse reaction; Nausea is decreased tb4 04/18 23:53 Drug: NS 0.9% IV 1000 ml IV at 1000 ml once; to be given as a bolus over 60 minutes tb4 Route: IV; Rate: 1000 ml; Site: right wrist; 04/19 03:34 Follow up: Response: No adverse reaction; IV Status: Completed infusion tb4 03:33 Drug: Rocephin IV 2 grams IV at bolus once; Given slow IV push per pharmarcy tb4 instructions Route: IV; Rate: bolus; Site: right hand; Disposition: 05:26 Co-signature as Attending Physician, Rohan Alonso DO. tt7 Disposition Summary: 04/19/25 04:48 Discharge Ordered Notes: Location: Home tt7 Problem: new tt7 Symptoms: have improved tt7 Condition: Stable tt7 Diagnosis - Pyelonephritis acute tt7 Followup: tt7 - With: Emergency Department - When: As needed - Reason: Followup: tt7 - With: Private Physician - When: 1 - 2 days - Reason: Recheck today's complaints, Re-evaluation by your physician Discharge Instructions: - Discharge Summary Sheet tt7 - Pyelonephritis, Adult, [id number] tt7 Forms: - Medication Reconciliation Form tt7 - Antibiotic Education tt7 - Prescription Opioid Use tt7 - Patient Portal Instructions tt7 - Leadership Thank You Letter tt7 Prescriptions: - cefdinir 300 mg Oral capsule - take 1 capsule ORAL route 2 times per day for 10 days; 20 capsule; Refills: 0, tt7 Product Selection Permitted - ondansetron HCl 4 mg Oral tablet - take 1 tablet ORAL route every 8 to 12 hours As needed as needed for nausea and tt7 vomiting; 20 tablet; Refills: 0, Product Selection Permitted Signatures: Dispatcher [employer] Management EDMS Rhina Galeano RN RN vc1 Sheila Alvarado RN RN tb4 Rohan Alonso DO DO tt7 Corrections: (The following items were deleted from the chart) 04/18 23:44 23:44 ACETAMINOPHEN+C.LAB.BRZ ordered. EDMS EDMS 23:44 23:44 BASIC METABOLIC PANEL+C.LAB.BRZ ordered. EDMS EDMS 23:44 23:44 CBC+H.LAB.BRZ ordered. EDMS EDMS 23:44 23:44 ETHANOL+C.LAB.BRZ ordered. EDMS EDMS 23:44 23:44 HEPATIC FUNCTION+C.LAB.BRZ ordered. EDMS EDMS 23:44 23:44 PROTIME (+INR)+COAG.LAB.BRZ ordered. EDMS EDMS 23:44 23:44 PTT, ACTIVATED+COAG.LAB.BRZ ordered. EDMS EDMS 23:44 23:44 SALICYLATE+C.LAB.BRZ ordered. EDMS EDMS 23:44 23:44 URINE DRUG SCREEN+UC.LAB.BRZ ordered. EDMS EDMS 04/19 02:46 02:46 BLOOD CULTURE*+BA.LAB.BRZ ordered. EDMS EDMS 02:46 02:46 LACTATE+C.LAB.BRZ ordered. EDMS EDMS 05:21 05:19 Differential diagnosis: gastritis, pancreatitis, Valproic acid toxicity, alcohol tt7 intoxication, acetaminophen toxicity, pyelonephritis tt7
--- NOTE | 2025-04-19 04:49 | ER ---
Nurse's Notes [facility] Name: Vanda Pompa Age: 24 yrs Sex: Female : 2000 Arrival Date: 04/18/2025 Time: 23:24 Bed 8 Private MD: Diagnosis: Pyelonephritis acute Presentation: 04/18 23:27 Chief complaint: EMS states: toned out for vomiting, pt stated she felt like she was vc1 going to pass out or have a seizure. 23:27 Coronavirus screen: Client denies travel out of the [place] in the last 14 days. At this vc1 time, the client does not indicate any symptoms associated with coronavirus-19. Ebola Screen: Patient negative for fever greater than or equal to 101.5 degrees Fahrenheit, and additional compatible Ebola Virus Disease symptoms Patient denies exposure to infectious person. Patient denies travel to an Ebola-affected area in the 21 days before illness onset. No symptoms or risks identified at this time. Initial Sepsis Screen: Does the patient meet any 2 criteria? No. Patient's initial sepsis screen is negative. Does the patient have a suspected source of infection? No. Patient's initial sepsis screen is negative. Risk Assessment: Do you want to hurt yourself or someone else? Patient reports no desire to harm self or others. Onset of symptoms was April 15, 2025. Care prior to arrival: None. Activity prior to arrival: vomiting. Mechanism of Injury: No Mechanism of Injury. Transition of care: patient was not received from another setting of care. 23:27 Method Of Arrival: EMS: [facility] vc1 23:27 Acuity: FREDY 3 vc1 Triage Assessment: 23:27 General: Appears distressed, uncomfortable, ill, Behavior is cooperative, drowsy, flat. vc1 Pain: Denies pain. EENT: No deficits noted. No signs and/or symptoms were reported regarding the EENT system. Neuro: Level of Consciousness is lethargic, Oriented to person, place, situation. Cardiovascular: Heart tones S1 S2 present Capillary refill < 3 seconds Patient's skin is warm and dry. Respiratory: Airway is patent Respiratory effort is even, unlabored, Respiratory pattern is regular, symmetrical, Breath sounds are clear bilaterally. GI: Pt is actively vomiting undigested food, Abd is soft and non tender Reports nausea, vomiting. : No deficits noted. No signs and/or symptoms were reported regarding the genitourinary system. Derm: Skin is intact, is healthy with good turgor, Skin is dry, Skin is normal, Skin temperature is warm. Musculoskeletal: Circulation, motion, and sensation intact. Range of motion: intact in all extremities. 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 - Infectious Disease History:: Denies. - Social history:: Smoking status: unknown Smoking status: Reported history of juuling and/or vaping. Screenin:01 [facility] ED Fall Risk Assessment (Adult) History of falling in the last 3 months, vc1 including since admission No falls in past 3 months (0 pts) Confusion or Disorientation Yes (5 pts) Intoxicated or Sedated No (0 pts) Impaired Gait No (0 pts) Mobility Assist Device Used No (0 pt) Altered Elimination No (0 pt) Score/Fall Risk Level 3 or more points = High Risk Oriented to surroundings, Maintained a safe environment, Educated pt \T\ family on fall prevention, incl call for assistance when getting out of bed, Hourly rounding (assess needs \T\ fall precautionary measures) done, Remained w/in arm's length of patient and in sight while toileting, Remained with patient while ambulating. Abuse screen: Denies threats or abuse. Nutritional screening: No deficits noted. Tuberculosis screening: No symptoms or risk factors identified. Assessment: 00:00 General: See triage assessment. vc1 01:13 Reassessment: Patient appears in no apparent distress at this time. Patient and/or vc1 family updated on plan of care and expected duration. Pain level reassessed. Patient is alert, oriented x 3, equal unlabored respirations, skin warm/dry/pink. Patient states feeling better. Patient states symptoms have improved. 02:20 Reassessment: Patient appears in no apparent distress at this time. No changes from vc1 previously documented assessment. Patient and/or family updated on plan of care and expected duration. Pain level reassessed. Patient is alert, oriented x 3, equal unlabored respirations, skin warm/dry/pink. Vital Signs: 04/18 23:27 BP 113 / 78; Pulse 90; Resp 16; Temp 98.4; Pulse Ox 95% ; Weight 73.5 kg; vc1 04/19 01:00 BP 105 / 70; Pulse 82; Resp 19; Pulse Ox 97% ; vc1 02:00 BP 94 / 66; Pulse 90; Resp 19; Pulse Ox 92% ; vc1 03:34 BP 104 / 77; Pulse 73; Resp 17; Pulse Ox 99% on R/A; Pain 0/10; tb4 03:34 Pain Scale: Adult tb4 ED Course: 04/18 23:27 Patient arrived in ED. rv1 23:27 Patient has correct armband on for positive identification. Bed in low position. Call vc1 light in reach. Placed in gown. Provided Education on: Plan of care. Pulse ox on. NIBP on. 23:42 Rohan Alonso DO is Attending Physician. tt7 23:52 Inserted saline lock: 22 gauge in right wrist, using aseptic technique. Blood tb4 collected. Flushed with 10 mL NS. 23:58 Rhina Galeano, RN is Primary Nurse. vc1 04/19 00:00 Triage completed. vc1 00:01 Arm band placed on left wrist. vc1 03:33 Inserted saline lock: 22 gauge in right hand, using aseptic technique. tb4 05:45 No provider procedures requiring assistance completed. IV discontinued, intact, vc1 bleeding controlled, No redness/swelling at site. Pressure dressing applied. Administered Medications: 04/18 23:53 Drug: Ondansetron IVP 4 mg IVP once; over 2 minutes Route: IVP; Site: right wrist; tb4 04/19 03:34 Follow up: Response: No adverse reaction; Nausea is decreased tb4 04/18 23:53 Drug: NS 0.9% IV 1000 ml IV at 1000 ml once; to be given as a bolus over 60 minutes tb4 Route: IV; Rate: 1000 ml; Site: right wrist; 04/19 03:34 Follow up: Response: No adverse reaction; IV Status: Completed infusion tb4 03:33 Drug: Rocephin IV 2 grams IV at bolus once; Given slow IV push per pharmarcy tb4 instructions Route: IV; Rate: bolus; Site: right hand; Medication: 00:02 VIS not applicable for this client. vc1 Outcome: 04:48 Discharge ordered by . tt7 05:45 Discharged to home via wheelchair, with family, vc1 05:45 Condition: stable 05:45 Discharge instructions given to patient, Instructed on discharge instructions, follow up and referral plans. medication usage, Demonstrated understanding of instructions, follow-up care, medications, Prescriptions given X 2, 05:46 Patient left the ED. vc1 Signatures: Rhina Galeano RN RN vc1 Anabel Jacobs rv1 Sheila Alvarado RN RN tb4 Rohan Alonso, DO DO tt7
[2025-04-19 13:41] VITALS: TEMP 98.4
[2025-04-19 13:44] VITALS: BP 104/77; O2SAT 99
== END 2025-04-19 05:46 | disposition home or self-care (01) ==
LOC: ER 23:24
DX: N10 Acute pyelonephritis (principal)
CPT/HCPCS: 36415; 80048; 80076; 80143; 80164; 80179; 80307; 81001; 82077; 83605; 85025; 85610; 85730; 87428; 93005; 99284; J0696; J2405; J7030

== ENCOUNTER 2025-04-19 20:15 | Emergency (ER) | payer SELFPAY ==
[2025-04-19] MEDS ORDERED: ONDANSETRON 4 MG/2 ML VIAL ONE (20:39)
[2025-04-19] MEDS ORDERED: HALOPERIDOL LACT 5 MG/ML INJ ONE (21:23)
[2025-04-19] MEDS ORDERED: NA CHLORIDE 0.9% 2,000 ML ONE (21:23)
[2025-04-19] MEDS ORDERED: CEFTRIAXONE 1000 MG/VIAL ONE (21:23)
--- NOTE | 2025-04-19 21:32 | RAD REPORT ---
EXAM: CT brain without contrast HISTORY: dizzy,. head injury ;Aphasia COMPARISON: 03/13/2025 TECHNIQUE: Multiple contiguous axial images were obtained and a CT of the brain without contrast. Sag ittal and coronal reformats were performed. One or more of the following dose reduction techniques were used: Automated exposure control, adjust ment of the mA and/or kV according to patient size, and/or iterative reconstruction. FINDINGS: No evidence of hydrocephalus, intracranial hemorrhage, or extra-axial fluid collection. The brain is normal in morphology. No evidence of midline shift or areas of brain edema. The calvarium is intact. The visualized paranasal sinuses and mastoid air cells are essentially clear . IMPRESSION: No evidence of acute intracranial abnormality.
[2025-04-19 21:46] LABS: Sqamous Epithelial <5 /HPF (None Seen); Urine Culture Reflex Order NOT NEEDED; Urine Microscopic Reflex YN ORDER UMIC
[2025-04-19 21:51] LABS: Absolute Lymphocytes (CBC) 4.9 K/uL (0.7-4.9); Hematocrit 40.1 % (36.0-45.0); Hemoglobin 13.6 g/dL (12.0-15.0); MCH 28.5 pg (27.0-35.0); MCHC 33.9 g/dL (32.0-36.0); MCV 84.0 fL (80-100); MPV 8.3 fL (7.6-11.3); Nucleated RBC Absolute Count 0.0 (0-0); Nucleated Red Blood Cells % 0.2 % (0-0); RBC Red Blood Cell Count 4.77 M/uL (3.86-4.86); White Blood Count 14.10 thou/uL (4.3-10.9)
[2025-04-19 21:52] LABS: METHAMPHETAM NEGATIVE (NEGATIVE); THC Cannibis NEGATIVE (NEGATIVE)
[2025-04-19 22:00] LABS: ALT/SGPT 41.0 U/L (13-56); AST/SGOT 16.0 U/L (15-37); Albumin 3.7 g/dL (3.4-5.0); Albumin/Globulin Ratio 0.9 (1.1-1.8); Alkaline Phosphatase 147.0 U/L (45-117); Anion Gap 11.3 mEq/L (5.0-15.0); BUN Blood Urea Nitrogen 12.0 mg/dL (7-18); Globulin 3.9 g/dL (2.3-3.5); Glucose Level 107.0 mg/dL (74-106); Potassium 3.3 mEq/L (3.5-5.1)
[2025-04-19 22:29] LABS: Thyroid Stimulating Hormone 4.250 uIU/mL (0.358-3.740)
[2025-04-20] MEDS ORDERED: ONDANSETRON 4 MG (ODT) TAB ONE (05:50)
--- NOTE | 2025-04-20 05:51 | EDPHYS ---
Physician Documentation [facility] Name: Vanda Pompa Age: 24 yrs Sex: Female : 2000 Arrival Date: 04/19/2025 Time: 20:15 Bed 5 Private MD: ED Physician Mejia Green HPI: 04/19 20:21 This 24 yrs old Female presents to ER via Unassigned with complaints of sp4 Nausea/Vomiting, Slurred Speech, Shakes. 04/20 02:01 24-year-old female presents with complaint of nausea vomiting slurred speech shake full sp4 no floor and head injury. Reports acute head injury just prior to arrival . . 02:01 Patient was here yesterday 04/18/2025 and was diagnosed with acute pyelonephritis and sp4 prescribed cefdinir.. ORDER SELECTOR: 04/19 21:36 Not cp4 Historical: - Allergies: 20:29 Bees; me1 20:29 Ibuprofen; me1 20:29 Keppra; me1 20:29 mosquitos; me1 - PMHx: 20:29 adhd; Anxiety; BORDERLINE PERSONALITY DISORDER; depressive disorder; Kidney stones me1 (Unknown); Ovarian cyst; Seizure; - PSHx: 20:29 Cholecystectomy; ear sx; me1 - Immunization history:: Adult Immunizations up to date. - Infectious Disease History:: Denies. - Social history:: Smoking status: Reported history of juuling and/or vaping. - Family history:: not pertinent. ROS: 04/20 02:08 Constitutional: Positive nausea vomiting, positive shakes, positive slurred speech, sp4 positive fall at home, positive head injury All other systems are negative, Exam: 02:08 Constitutional: Patient presents with acute nausea, poorly cooperative, patient in sp4 fact slid onto the floor from the wheelchair in her room. Uncooperative with exam Head/Face: Normocephalic, atraumatic. Eyes: Pupils equal round and reactive to light, extra-ocular motions intact. Lids and lashes normal. Conjunctiva and sclera are not injected. Cornea within normal limits. Periorbital areas with no swelling, redness, or edema. ENT: Nares patent. No nasal discharge, no septal abnormalities noted. Tympanic membranes are normal and external auditory canals are clear. Oropharynx with no redness, swelling, or masses, exudates, or evidence of obstruction, uvula midline. Mucous membranes moist. Neck: Trachea midline, no thyromegaly or masses palpated, and no cervical lymphadenopathy. Supple, full range of motion without nuchal rigidity, or vertebral point tenderness. Chest/axilla: Normal chest wall appearance and motion. Nontender with no deformity. No lesions are appreciated. Cardiovascular: Regular rate and rhythm with a normal S1 and S2. No gallops, murmurs, or rubs. No pulse deficits. Respiratory: Lungs have equal breath sounds bilaterally, clear to auscultation and percussion. No rales, rhonchi or wheezes noted. No increased work of breathing, no retractions or nasal flaring. Abdomen/GI: Soft, with normal bowel sounds. No distension or tympany. No guarding or rebound. No evidence of tenderness throughout. Back: No spinal tenderness. No costovertebral tenderness. Skin: Warm, dry with normal turgor. Normal color with no rashes, no lesions, and no evidence of cellulitis. MS/ Extremity: Pulses equal, no cyanosis. Neurovascular intact. Full, normal range of motion. Neuro: Awake and alert, GCS 15, oriented to person, place, time, and situation. Cranial nerves II-XII grossly intact. Motor strength 5/5 in all extremities. Sensory grossly intact. 02:09 ECG was reviewed by the Attending Physician. EKG at 2040 sinus tachycardia rate 14 sp4 otherwise unremarkable. Vital Signs: 04/19 20:27 BP 115 / 74; Pulse 109; Resp 18; Temp 98.2; Pulse Ox 100% ; Weight 72.57 kg; Height 5 me1 ft. 3 in. ; 21:36 BP 126 / 90; Pulse 98; Resp 18; Pulse Ox 97% ; cp4 22:35 BP 118 / 79; Pulse 87; Resp 18; Pulse Ox 99% on R/A; af3 04/20 00:00 BP 121 / 84; Pulse 89; Resp 18; Pulse Ox 99% ; cp4 01:27 BP 109 / 79; Pulse 89; Resp 18; Pulse Ox 100% on R/A; af3 03:36 BP 96 / 60; Pulse 89; Resp 18; Pulse Ox 98% on R/A; af3 04:57 BP 96 / 69; Pulse 86; Resp 18; Pulse Ox 98% on R/A; af3 05:32 BP 90 / 55; Pulse 80; Resp 18; Pulse Ox 96% on R/A; af3 04/19 20:27 Body Mass Index 28.34 (72.57 kg, 160.02 cm) me1 03:36 pt side lying, provider aware af3 04:57 side laying position af3 05:32 side laying af3 [place] Coma Score: 02:08 Eye Response: spontaneous(4). Motor Response: obeys commands(6). Verbal Response: sp4 oriented(5). Total: 15. MDM: 04/19 20:23 Medical Screening Exam initiated sp4 04/20 02:11 Differential diagnosis: Nonspecific abd pain, gastritis, viral gastroenteritis, sp4 gastroenteritis, Head injury and concussion. Data reviewed: vital signs, nurses notes, lab test result(s), EKG, radiologic studies, CT scan. Consideration of Admission/Observation Escalation of care including admission/observation considered. ED course: FINDINGS: No evidence of hydrocephalus, intracranial hemorrhage, or extra-axial fluid collection. The brain is normal in morphology. No evidence of midline shift or areas of brain edema. The calvarium is intact. The visualized paranasal sinuses and mastoid air cells are essentially clear. IMPRESSION: No evidence of acute intracranial abnormality. . 04/19 20:37 Order name: CBC with Diff; Complete Time: 22:10 4 04/19 20:37 Order name: CMP; Complete Time: 22:32 sp4 04/19 20:37 Order name: Test, Urine; Complete Time: 22:32 sp4 04/19 20:37 Order name: UA Rfx [place] Cult if indicated; Complete Time: 22:10 sp4 04/19 20:40 Order name: Urine Drug Screen; Complete Time: 22:10 4 04/19 20:45 Order name: Acetaminophen; Complete Time: 22:32 sp4 04/19 20:45 Order name: Salicylate; Complete Time: 22:32 sp4 04/19 20:45 Order name: TSH; Complete Time: 22:32 sp4 04/19 20:45 Order name: T4 Free; Complete Time: 22:32 sp4 04/19 20:36 Order name: CT Head Brain wo Cont; Complete Time: 22:10 sp4 04/19 20:37 Order name: IV Saline Lock; Complete Time: 21:11 sp4 04/19 20:37 Order name: Labs collected and sent; Complete Time: 21:11 sp4 04/19 20:38 Order name: Straight Cath: for urine; Complete Time: 21:11 sp4 EC/18 20:40 Rate is 114 beats/min. Rhythm is regular, Sinus tachycardia. QRS [address] is Normal. NM sp4 interval is normal. QRS interval is normal. QT interval is normal. No Q waves. T waves are Normal. No ST changes noted. Clinical impression: No evidence of ischemia. Interpreted by me. Reviewed by me. Administered Medications: 21:00 Drug: Ondansetron IVP 4 mg IVP once; over 2 minutes Route: IVP; Site: left antecubital; al5 22:46 Follow up: Response: No adverse reaction cp4 21:00 Drug: Ondansetron IVP 4 mg IVP once; over 2 minutes Route: IVP; Site: left antecubital; al5 22:46 Follow up: Response: No adverse reaction; Nausea is decreased cp4 21:35 Drug: Rocephin - Rocephin (cefTRIAXone) IVPB 1 grams IVPB once over 30 mins; (mix in 50 cp4 mL NS) Route: IVPB; Infused Over: 30 mins; Site: left antecubital; 22:47 Follow up: IV Status: Completed infusion cp4 21:36 Drug: NS 0.9% IV 1000 ml IV at 1000 ml once; to be given as a bolus over 60 minutes cp4 Route: IV; Rate: 1000 ml; Site: left antecubital; 23:00 Follow up: Response: No adverse reaction; IV Status: Completed infusion; IV Intake: al5 1000ml 21:36 Drug: Haloperidol IVP 2.5 mg/50 mL 5 mg IVP once; Place patient on a cardiac sonographer cp4 Route: IVP; Site: left antecubital; 22:47 Follow up: Response: No adverse reaction cp4 21:36 Drug: NS 0.9% IV 1000 ml IV at 1 bolus Per protocol; to be given as a bolus over 60 cp4 minutes Route: IV; Rate: 1 bolus; Site: left antecubital; 22:47 Follow up: IV Status: Completed infusion cp4 04/20 05:50 Drug: Ondansetron PO 4 mg PO once Route: PO; al5 06:09 Follow up: Response: No adverse reaction; Medication administered at discharge. al5 Disposition Summary: 04/20/25 05:50 Discharge Ordered Notes: Location: Home sp4 Problem: new sp4 Symptoms: have improved sp4 Condition: Stable sp4 Diagnosis - Acute gastroenteritis, acute nausea vomiting, acute syncope and collapse, acute sp4 head injury Followup: sp4 - With: Private Physician - When: 7 - 10 days - Reason: Recheck today's complaints Discharge Instructions: - Discharge Summary Sheet sp4 - Clear Liquid Diet, Adult, [id number] sp4 Forms: - Patient Portal Instructions sp4 Prescriptions: - ondansetron 8 mg Oral Tablet,disintegrating - take 1 tablet ORAL route every 8 hours PRN nausea; 30 tablet; Refills: 0, sp4 Product Selection Permitted Signatures: Dispatcher [employer] EDMejia Wilson MD MD sp4 Jenny Potter RN RN me1 Jessica Jose 4 Akiko Rossi RN RN al5 Corrections: (The following items were deleted from the chart) 04/19 20:45 20:45 ACETAMINOPHEN+C.LAB.BRZ ordered. EDMS EDMS 20:45 20:45 SALICYLATE+C.LAB.BRZ ordered. EDMS EDMS
--- NOTE | 2025-04-20 05:51 | ER ---
Nurse's Notes [facility] Name: Vanda Pompa Age: 24 yrs Sex: Female : 2000 Arrival Date: 04/19/2025 Time: 20:15 Bed 5 Private MD: Diagnosis: Acute gastroenteritis, acute nausea vomiting, acute syncope and collapse, acute head injury Presentation: 04/19 20:27 Chief complaint: Patient states: fell today and hit the back of her head. Reports + me1 LOC. Now dizzy with nausea. Coronavirus screen: Vaccine status: Patient reports receiving the 2nd dose of the covid vaccine. Ebola Screen: No symptoms or risks identified at this time. Initial Sepsis Screen: Does the patient meet any 2 criteria? HR > 90 bpm. Does the patient have a suspected source of infection? No. Patient's initial sepsis screen is negative. Risk Assessment: Do you want to hurt yourself or someone else? Patient reports no desire to harm self or others. Onset of symptoms was April 19, 2025. 20:27 Method Of Arrival: Wheelchair me1 20:27 Acuity: FREDY 3 me1 INSTRUCTOR OF EDUCATION: 21:36 Not cp4 Historical: - Allergies: 20:29 Bees; me1 20:29 Ibuprofen; me1 20:29 Keppra; me1 20:29 mosquitos; me1 - PMHx: 20:29 adhd; Anxiety; BORDERLINE PERSONALITY DISORDER; depressive disorder; Kidney stones me1 (Unknown); Ovarian cyst; Seizure; - PSHx: 20:29 Cholecystectomy; ear sx; me1 - Immunization history:: Adult Immunizations up to date. - Infectious Disease History:: Denies. - Social history:: Smoking status: Reported history of juuling and/or vaping. - Family history:: not pertinent. Screenin:08 [facility] ED Fall Risk Assessment (Adult) History of falling in the last 3 months, cp4 including since admission Yes- single mechanical fall (1 pt) Confusion or Disorientation No (0 pts) Intoxicated or Sedated No (0 pts) Impaired Gait Yes (1 pt) Mobility Assist Device Used No (0 pt) Altered Elimination No (0 pt) Score/Fall Risk Level 0 - 2 = Low Risk Oriented to surroundings, Maintained a safe environment, Assessed \T\ reinforced patient's understanding of fall precautions, Hourly rounding (assess needs \T\ fall precautionary measures) done. Abuse screen: Denies threats or abuse. Denies injuries from another. Nutritional screening: No deficits noted. Tuberculosis screening: No symptoms or risk factors identified. Never had TB. Assessment: 22:08 General: Appears in no apparent distress. uncomfortable, Behavior is appropriate for cp4 age, uncooperative. Pain: Denies pain. Neuro: Level of Consciousness is awake, alert, obeys commands, Oriented to person, place, time, situation. Cardiovascular: Patient's skin is warm and dry. Rhythm is sinus tachycardia. Respiratory: Airway is patent Respiratory effort is even, unlabored. GI: Abdomen is round non-distended, Pt is actively vomiting undigested food, Bowel sounds present X 4 quads. Abd is soft and non tender X 4 quads. Reports nausea, vomiting. : No signs and/or symptoms were reported regarding the genitourinary system. EENT: No signs and/or symptoms were reported regarding the EENT system. Derm: No signs and/or symptoms reported regarding the dermatologic system. Musculoskeletal: No signs and/or symptoms reported regarding the musculoskeletal system. 04/20 00:08 Reassessment: Patient appears in no apparent distress at this time. Patient and/or af3 family updated on plan of care and expected duration. Pain level reassessed. Patient is alert, oriented x 3, equal unlabored respirations, skin warm/dry/pink. 02:08 Reassessment: Patient appears in no apparent distress at this time. Patient and/or af3 family updated on plan of care and expected duration. Pain level reassessed. Patient is alert, oriented x 3, equal unlabored respirations, skin warm/dry/pink. 03:36 Reassessment: Patient appears in no apparent distress at this time. Patient and/or af3 family updated on plan of care and expected duration. Pain level reassessed. Patient is alert, oriented x 3, equal unlabored respirations, skin warm/dry/pink. 04:57 Reassessment: Patient appears in no apparent distress at this time. No changes from af3 previously documented assessment. Patient and/or family updated on plan of care and expected duration. Pain level reassessed. Patient is alert, oriented x 3, equal unlabored respirations, skin warm/dry/pink. 05:31 Reassessment: Patient appears in no apparent distress at this time. No changes from al5 previously documented assessment. Patient and/or family updated on plan of care and expected duration. Pain level reassessed. Patient is alert, oriented x 3, equal unlabored respirations, skin warm/dry/pink. Patient states feeling better. Patient states symptoms have improved. Vital Signs: 04/19 20:27 BP 115 / 74; Pulse 109; Resp 18; Temp 98.2; Pulse Ox 100% ; Weight 72.57 kg; Height 5 me1 ft. 3 in. ; 21:36 BP 126 / 90; Pulse 98; Resp 18; Pulse Ox 97% ; cp4 22:35 BP 118 / 79; Pulse 87; Resp 18; Pulse Ox 99% on R/A; af3 04/20 00:00 BP 121 / 84; Pulse 89; Resp 18; Pulse Ox 99% ; cp4 01:27 BP 109 / 79; Pulse 89; Resp 18; Pulse Ox 100% on R/A; af3 03:36 BP 96 / 60; Pulse 89; Resp 18; Pulse Ox 98% on R/A; af3 04:57 BP 96 / 69; Pulse 86; Resp 18; Pulse Ox 98% on R/A; af3 05:32 BP 90 / 55; Pulse 80; Resp 18; Pulse Ox 96% on R/A; af3 04/19 20:27 Body Mass Index 28.34 (72.57 kg, 160.02 cm) me1 03:36 pt side lying, provider aware af3 04:57 side laying position af3 05:32 side laying af3 [place] Coma Score: 02:08 Eye Response: spontaneous(4). Motor Response: obeys commands(6). Verbal Response: sp4 oriented(5). Total: 15. ED Course: 04/19 20:18 Patient arrived in ED. gm2 20:21 Mejia Green MD is Attending Physician. sp4 20:29 Triage completed. me1 20:29 Arm band placed on Patient placed in an exam room. me1 21:11 No provider procedures requiring assistance completed. Urine collected: straight cath al5 specimen, clear, EKG done, by ED staff, reviewed by Mejia Green MD. Inserted saline lock: 20 gauge in left antecubital area, using aseptic technique. Blood collected. Flushed with 10 mL NS. 21:25 CT Head Brain wo Cont In Process Unspecified. EDMS 21:35 Jessica Jose is Primary Nurse. cp4 22:08 Bed in low position. Call light in reach. Side rails up X2. cp4 04/20 06:00 Provided Education on: discharge follow up. al5 06:00 IV discontinued, intact, bleeding controlled, No redness/swelling at site. Pressure al5 dressing applied. Administered Medications: 04/19 21:00 Drug: Ondansetron IVP 4 mg IVP once; over 2 minutes Route: IVP; Site: left antecubital; al5 22:46 Follow up: Response: No adverse reaction cp4 21:00 Drug: Ondansetron IVP 4 mg IVP once; over 2 minutes Route: IVP; Site: left antecubital; al5 22:46 Follow up: Response: No adverse reaction; Nausea is decreased cp4 21:35 Drug: Rocephin - Rocephin (cefTRIAXone) IVPB 1 grams IVPB once over 30 mins; (mix in 50 cp4 mL NS) Route: IVPB; Infused Over: 30 mins; Site: left antecubital; 22:47 Follow up: IV Status: Completed infusion cp4 21:36 Drug: NS 0.9% IV 1000 ml IV at 1000 ml once; to be given as a bolus over 60 minutes cp4 Route: IV; Rate: 1000 ml; Site: left antecubital; 23:00 Follow up: Response: No adverse reaction; IV Status: Completed infusion; IV Intake: al5 1000ml 21:36 Drug: Haloperidol IVP 2.5 mg/50 mL 5 mg IVP once; Place patient on a commercial field inspector cp4 Route: IVP; Site: left antecubital; 22:47 Follow up: Response: No adverse reaction cp4 21:36 Drug: NS 0.9% IV 1000 ml IV at 1 bolus Per protocol; to be given as a bolus over 60 cp4 minutes Route: IV; Rate: 1 bolus; Site: left antecubital; 22:47 Follow up: IV Status: Completed infusion cp4 04/20 05:50 Drug: Ondansetron PO 4 mg PO once Route: PO; al5 06:09 Follow up: Response: No adverse reaction; Medication administered at discharge. al5 Medication: 04/19 22:08 VIS not applicable for this client. cp4 Intake: 23:00 IV: 1000ml; Total: 1000ml. al5 Outcome: 04/20 05:50 Discharge ordered by . sp4 06:00 Discharged to home ambulatory, with family, al5 06:00 Condition: good 06:00 Discharge instructions given to patient, Instructed on discharge instructions, follow up and referral plans. medication usage, Demonstrated understanding of instructions, follow-up care, medications, Prescriptions given X 1, 06:10 Patient left the ED. al5 Signatures: Dispatcher [employer] EDMS Akiko Padilla, RN RN ap3 Mejia Green MD MD sp4 Jenny Potter RN RN me1 Jessica Jose cp4 Kaye Hutchison 2 Akiko Rossi, RN RN al5 Alessandra Jenkins RN RN af3 Corrections: (The following items were deleted from the chart) 04/19 21:10 21:10 No provider procedures requiring assistance completed. ap3 ap3 21:10 21:10 Inserted saline lock: 20 gauge in left antecubital area, using aseptic technique. ap3 Blood collected. Flushed with 10 mL NS ap3 21: 21:10 Urine collected: straight cath specimen, clear, EKG done, by ED staff, reviewed ap3 by Mejia Green MD ap3 04/20 06:09 05:31 Reassessment: Patient appears in no apparent distress at this time. No changes al5 from previously documented assessment. Patient and/or family updated on plan of care and expected duration. Pain level reassessed. Patient is alert, oriented x 3, equal unlabored respirations, skin warm/dry/pink. af3
[2025-04-20 09:47] VITALS: TEMP 98.2
[2025-04-20 09:55] VITALS: BP 90/55; O2SAT 96
== END 2025-04-20 06:10 | disposition home or self-care (01) ==
LOC: ER 20:15
DX: K52.9 Noninfective gastroenteritis and colitis, unspecified (principal); R55 Syncope and collapse; S09.90XA Unspecified injury of head, initial encounter
CPT/HCPCS: 36415; 70450; 80053; 80143; 80179; 80307; 81001; 81025; 84439; 84443; 85025; 93005; 96365; 96375; 99285; J0696; J1630; J2405; J7030; Q0162